=== PATIENT | female | born 1980 | race Caucasian/White ===

== ENCOUNTER 2017-12-09 11:47 | Day surgery (SDC) | payer OTHER, SELFPAY ==
[2017-12-09 12:29] VITALS: BP 161/94; PULSE 93; RESP 16; TEMP 36.6; O2SAT 99; BMI 44.0
[2017-12-09 12:35] LABS: Internal QC Validated? YES +Cl - CLEAR BKGD; Pregnancy, Urine Negative Negative
--- NOTE | 2017-12-09 13:40 | RAD_ITS ---
PROCEDURE: Caudal block. DATE OF EXAMINATION: December 09, 2017. INDICATION: Female, 37 years old. Low back pain. FLUOROSCOPY TIME (if supplied): (0:06) minutes/seconds Intraoperative imaging provided for caudal block. RAD/Fluor Guidance for Spine Inj IMPRESSION: Intraoperative imaging provided for caudal block. Electronically Signed: Emiliano Gonzalez MD at 15:57 EST Tel [phone], Service support ,
[2017-12-09] MEDS: MethylPREDNISolone Acetate 80 MG/ML Vial (13:44)
[2017-12-09] MEDS: Bupivacaine 0.25% 30 ML Vial (13:44)
[2017-12-09 13:53] VITALS: BP 159/96; BP 161/94; PULSE 90; RESP 16; TEMP 36.4; O2SAT 97
[2017-12-09 14:00] VITALS: BP 141/102; BP 161/94; PULSE 88; RESP 16; O2SAT 94
[2017-12-09 14:05] VITALS: BP 145/93; BP 161/94; PULSE 78; RESP 16; O2SAT 97
[2017-12-09 14:10] VITALS: BP 149/92; BP 161/94; PULSE 82; RESP 16; TEMP 37.1; O2SAT 96
--- NOTE | 2017-12-09 14:47 | OP.PCM_ITS ---
Problem List (1) Degeneration of intervertebral disc of lumbosacral region Status: Chronic (2) Disc displacement, lumbar Status: Chronic (3) Radiculopathy of lumbosacral region Status: Chronic Report of Operation Date of Procedure: 12/09/17 Pre-Operative Diagnosis: Lumbosacral radiculopathy, lumbosacral degenerative disc disease, lumbar disc displacement Post-Operative Diagnosis: Lumbosacral radiculopathy, lumbosacral degenerative disc disease, lumbar disc displacement Surgery/Procedure Performed:: Diagnostic/therapeutic caudal epidural steroid injection Description of Surgical Findings:: PROCEDURE: Diagnostic/therapeutic caudal epidural steroid injection PREOPERATIVE DIAGNOSIS: Lumbosacral radiculopathy, lumbosacral degenerative disc disease, lumbar disc displacement POSTOPERATIVE DIAGNOSIS: Lumbosacral radiculopathy, lumbosacral degenerative disc disease, lumbar disc displacement ANESTHESIA: MAC COMPLICATIONS: None BLOOD LOSS: Minimal PROCEDURE IN DETAIL: History and physical today was reviewed. Risks and benefits of the procedure were explained. The patient understood, agreed to our procedure, and informed consent was obtained. IV inserted per routine protocol. The patient was taken to the operating room, placed in a prone position with a pillow positioned underneath the abdomen. Lower back and tailbone area was prepped and draped in a sterile fashion using iodine ?3 under fluoroscopy guidance on the lateral view the caudal space was identified the skin and subcutaneous tissue and size approximately 3 cc of 1% lidocaine using a 25-gauge regular needle under direct visualization with fluoroscopy using a 22-gauge 3-1/2 inch spinal needle the needle was advanced via the skin through the sacral hiatus the peroneal passed through the sacrococcygeal ligament advanced approximately S4 area after negative aspiration for blood or CSF a total of 3 cc of contrast were injected to confirm correct placement of the needle as well as cephalad spread the spread was followed to approximately L5 area after confirmation AP as well as lateral view repeated negative aspiration a total of 15 cc of preservative-free 0.125% Marcaine with 80 mg of Depo-Medrol was injected easily. The needles were then removed intact. The patient experienced no signs or symptoms intrathecal, intravascular injection. The patient experienced no paraesthesia. The procedure was completed without any apparent difficult, any complication. The patient appeared to tolerate well. ASSESSMENT AND PLAN: This is a 37-year-old female with lumbosacral radiculopathy, lumbosacral degenerative disc disease, lumbar disc displacement status post diagnostic/ therapeutic caudal epidural steroid injection. The patient will continue her current medications. The patient will follow in approximately 2 weeks for possible repeat of the procedure if indicated.
[2017-12-09 15:16] VITALS: BP 161/94
== END 2017-12-09 15:17 | disposition home or self-care (01) ==
LOC: SDC 11:47 → ACINP 11:50 → AC 13:11
PROVIDERS: Anesthesiology; Family Provider Family Medicine; PCP Family Medicine; Visit Provider Anesthesiology Pain Medicine
PROC: 3E0S3BZ Introduction of Anesthetic Agent into Epidural Space, Percutaneous Approach (ICD-10-PCS; CPT 62282; principal; 2017-12-09 13:35)
DX: M51.17 Intervertebral disc disorders with radiculopathy, lumbosacral region (principal); M51.16 Intervertebral disc disorders with radiculopathy, lumbar region; M48.07 Spinal stenosis, lumbosacral region; M46.96 Unspecified inflammatory spondylopathy, lumbar region; M79.1 Myalgia; Z79.891 Long term (current) use of opiate analgesic
CPT/HCPCS: 01935; 62323; 64483; 77003; 81025; J7120; J3490

== ENCOUNTER → 2017-12-13 10:22 | Outpatient (CLI) | payer OTHER, SELFPAY ==
[2017-12-09 12:29] VITALS: BMI 44.0
[2017-12-09 14:10] VITALS: BP 149/92
[2017-12-13 10:46] LABS: Absolute Lymphocyte Count 2.81 X10^3/ul (0.83-4.51); Absolute Neutrophil Count 8.1 X10^3/uL (2.0-7.7); Basophil# 0.07 X10^3/uL; Basophil% 0.6 % (0-1); Eosinophils% 1.7 % (0-5); Hematocrit 41.7 % (37-47); Hemoglobin 14.1 g/dl (12.0-15.0); Lymphocyte # 2.81 X10^3/ul (4.0); Lymphocyte % 23.3 % (19-41); Mean Corp Hgb Conc 33.8 g/gl (32-36); Mean Corpuscular Hgb 31.7 pg (27.0-32.0); Mean Corpuscular Volume 93.7 fL (81-99); Mean Platelet Vol. 9.4 fl (6.2-12.0); Monocyte# 0.69 X10^3/uL; Monocyte% 5.7 % (0-10); Neutrophil # 8.07 X10^3/uL (2.7-7.7); Platelet Count 193 K/mm3 (150-450); RBC Distribution Width SD 47.6 fl (35.1-43.9); Red Blood Count 4.45 M/mm3 (4.2-5.4)
[2017-12-13 10:48] LABS: POSITIVE COUNT NO; POSITIVE DIFFERENTIAL NO; POSITIVE MORPHOLOGY NO
[2017-12-13 11:13] LABS: AST(SGOT) 24 U/L (15-37); Alanine Aminotransfer ALT/SGPT 58 U/L (13-56); Albumin, Serum 3.9 g/dL (3.2-5.0); Alkaline Phosphatase 92 U/L (45-117); Anion Gap 10 (5-15); BUN 13 mg/dL (7-18); BUN/Creat Ratio 22.6 RATIO (10-20); Calcium,Total 9.2 mg/dL (8.5-10.1); Chloride 109 mmol/L (98-107); Creatinine, Serum 0.57 mg/dL (0.55-1.02); EST Glomerular Filtration Rate 127 mL/min (>60); Est Glom Filt Rate - Afr Amer 154 mL/min (>60); Globulin 4.1 g/dL (2.2-4.2); Glucose 115 mg/dL (74-106); Sodium Level 141 mmol/L (136-145); Thyroid Stim Hormone (TSH) 3.29 uIU/mL (0.358-3.74)
== END ==
PROVIDERS: Family Provider Family Medicine; PCP Family Medicine; Visit Provider Physician Assistant
DX: R20.0 Anesthesia of skin (principal); R42 Dizziness and giddiness
CPT/HCPCS: 36415; 80053; 84443; 85025

== ENCOUNTER → 2017-12-13 14:12 | Outpatient (CLI) | payer OTHER, SELFPAY ==
[2017-12-09 12:29] VITALS: BMI 44.0
[2017-12-09 14:10] VITALS: BP 149/92
--- NOTE | 2017-12-13 14:16 | CT_ITS ---
STUDY: CT BRAIN WITHOUT CONTRAST REASON FOR EXAM: Female, 37 years old. Left-sided numbness and tingling. The patient is status post recent left-sided nerve block. RADIATION DOSAGE (If Supplied By Facility): CTDIvol = ( 60.81 ) mGy, DLP = ( 1089.89 ) mGycm TECHNIQUE: Transaxial CT imaging of the brain was performed without administration of intravenous contrast material. Individualized dose optimization techniques were used for this CT. COMPARISON: Comparison is made with prior study dated September 23, 2016. FINDINGS: Normal soft tissue structures. Normal calvarium. Normal size ventricles and extra-axial spaces for the patient's age. Normal white matter tracts of the cerebral hemispheres. Normal basal ganglia and thalami. Normal brainstem. Normal cerebellum. There is no intracranial hemorrhage. There are no findings of an acute ischemic infarction. Normal visualized paranasal sinuses. CT/Brain/Head without Contrast IMPRESSION: Normal unenhanced CT scan of the brain. Electronically Signed: Emiliano Gonzlaez MD at 15:07 EST Tel [phone], Service support ,
== END ==
PROVIDERS: Family Provider Family Medicine; PCP Family Medicine; Visit Provider Physician Assistant
DX: R20.2 Paresthesia of skin (principal)
CPT/HCPCS: 70450

== ENCOUNTER 2018-02-03 07:48 | Day surgery (SDC) | payer OTHER, SELFPAY ==
[2018-02-03] VITALS (7 sets, daily range): BP systolic 136–147; BP diastolic 74–86; PULSE 72–78; RESP 16; TEMP 36.1–36.7; O2SAT 97–99; BMI 46.3
[2018-02-03] MEDS: MethylPREDNISolone Acetate 80 MG/ML Vial (09:38)
[2018-02-03] MEDS: Bupivacaine 0.25% 30 ML Vial (09:41)
--- NOTE | 2018-02-03 09:50 | RAD_ITS ---
CLINICAL HISTORY: Female, 37 years old. Lower back pain PROCEDURE: LEFT LUBAR FACET BLOCK LS1 FLUOROSCOPY TIME (if supplied): (0:10) minutes. 4 Images. RADIATION DOSAGE (If Supplied By Facility): CTDIvol = ( ) mGy, DLP = ( ) mGycm TECHNIQUE: LEFT LUBAR FACET BLOCK LS1 RAD/Lumbar Spine 2 or 3 Views IMPRESSION: LEFT LUBAR FACET BLOCK LS1 Electronically Signed: Chelsea Gomez MD at 14:11 EDT Tel , Service support ,
--- NOTE | 2018-02-03 10:59 | OP.PCM_ITS ---
Problem List (1) Lumbosacral spondylosis Status: Chronic (2) Lumbar facet arthropathy Status: Chronic (3) Degeneration of intervertebral disc of lumbosacral region Status: Chronic Report of Operation Date of Procedure: 02/03/18 Pre-Operative Diagnosis: Lumbosacral spondylosis, lumbosacral degenerative disc disease, lumbar facet arthropathy Post-Operative Diagnosis: Lumbosacral spondylosis, lumbosacral degenerative disc disease, lumbar facet arthropathy Surgery/Procedure Performed:: Left-sided lumbar facet steroid injection L3, L4, L5, S1 Description of Surgical Findings:: PROCEDURE: Left-sided lumbar facet steroid injection L3, L4, L5, S1 PREOPERATIVE DIAGNOSIS: Lumbosacral spondylosis, lumbosacral degenerative disc disease, and lumbar facet arthropathy POSTOPERATIVE DIAGNOSIS: Lumbosacral spondylosis, lumbosacral degenerative disc disease, and lumbar facet arthropathy ANESTHESIA: MAC COMPLICATIONS: None BLOOD LOSS: Minimal PROCEDURE IN DETAIL: History and physical today was reviewed. Risks and benefits of the procedure were explained. The patient understood, agreed to our procedure, and informed consent was obtained. IV inserted per routine protocol. The patient was taken to the operating room, placed in a prone position with a pillow positioned underneath the abdomen. The right side of his lower back was prepped and draped in a sterile fashion using iodine x3. Under fluoroscopy guidance, on AP view, L3 through S1 vertebral bodies were visualized. Skin and subcutaneous tissues were anesthetized with approximately 5 mL of 1% lidocaine using a 25-gauge regular needle. Under direct visualization with fluoroscopy at approximately 25-degree angle, starting on the left L3, ending on the left S1, passing through the L4-L5 using a 22-gauge 3 1/2-inch spinal needle, the needle was advanced via the skin. The tip of the needle was maneuvered and directed towards the superior and medial gutter of the transverse process at the vicinity of the medial branch. Once the tip of the needle was in contact with the bone, the needle pulled approximately 2 mm off the bone. After negative aspiration of blood with CSF and confirmation of AP as well as oblique view, a total of 8 mL of preservative-free 0.25% Marcaine with 80 mg of Depo- Medrol was injection in divided doses between those 4 levels. The needles were then removed intact. The patient experienced no signs or symptoms intrathecal, intravascular injection. The patient experienced no paraesthesia. The procedure was completed without any apparent difficult, any complication. The patient appeared to tolerate well. ASSESSMENT AND PLAN: This is a 37-year-old F with lumbosacral spondylosis, lumbosacral degenerative disc disease, and lumbar facet arthropathy, status post left-sided lumbar facet steroid injection L3 through S1. The patient will continue her current medications. The patient will follow in approximately 2 weeks for possible repeat of the procedure if indicated.
== END 2018-02-03 10:41 | disposition home or self-care (01) ==
LOC: SDC 07:49 → AC 07:50
PROVIDERS: Family Provider Family Medicine; PCP Family Medicine; Visit Provider Anesthesiology Pain Medicine
PROC: 3E0T3BZ Introduction of Anesthetic Agent into Peripheral Nerves and Plexi, Percutaneous Approach (ICD-10-PCS; CPT 64484; principal; 2018-02-03 09:45)
DX: M51.36 Other intervertebral disc degeneration, lumbar region (principal); M47.817 Spondylosis without myelopathy or radiculopathy, lumbosacral region; M48.07 Spinal stenosis, lumbosacral region; M51.37 Other intervertebral disc degeneration, lumbosacral region; M54.17 Radiculopathy, lumbosacral region; M46.96 Unspecified inflammatory spondylopathy, lumbar region; F41.9 Anxiety disorder, unspecified; M79.1 Myalgia; Z79.891 Long term (current) use of opiate analgesic
CPT/HCPCS: 64484 ×3; 64483; 72100; J7120

== ENCOUNTER 2018-03-09 10:38 | Emergency (ER) | payer OTHER, SELFPAY ==
[2018-03-09 10:39] VITALS: BMI 47.1
[2018-03-09 10:41] VITALS: BP 198/97; PULSE 78; RESP 15; TEMP 36.6; O2SAT 98
--- NOTE | 2018-03-09 10:43 | EKG12_ITS ---
Test Reason : CP REPEAT Blood Pressure : / mmHG Vent. Rate : 065 BPM Atrial Rate : 065 BPM P-R Int : 136 ms QRS Dur : 084 ms QT Int : 430 ms P-R-T Axes : 011 -03 216 degrees QTc Int : 447 ms Normal sinus rhythm Nonspecific ST and T wave abnormality Abnormal ECG Confirmed by NANCY SHEARER, MOHSEN ([id number]), photo editor GRAZYNA BLOOD ([id number]) on 03/12/2018 1:35:10 PM Referred By: JADE Confirmed By:MOHSEN CRUZ MD
--- NOTE | 2018-03-09 10:47 | RAD_ITS ---
STUDY: X-RAY CHEST REASON FOR EXAM: Female, 37 years old. Chest pain. TECHNIQUE: Single AP portable view of the chest. COMPARISON: None. FINDINGS: Telemetry wires overlie the chest. The lungs are clear and expanded. There is no demonstrated pleural abnormality. Normal size heart. Normal mediastinum and osman. Normal visualized pulmonary arteries. Normal visualized aortic arch and descending thoracic aorta. The thoracic spine is obscured by the mediastinum. There is degenerative osteoarthritis of the bilateral shoulders. There is no demonstrated abnormality of the visualized soft tissue structures of the upper abdomen. RAD/Chest 1 View (Portable) IMPRESSION: No acute cardiopulmonary disease. Electronically Signed: Dre Saldivar DO at 11:07 EDT Tel [phone], Service support ,
--- NOTE | 2018-03-09 10:52 | ED.VISSUMM ---
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 Fact she reports she has no past history of any kind. She has had her cholesterol checked, normal, she does not smoke she does not experience exertional chest pain, she was not exerting herself today and anyway this began having the sharp stabbing pain. She indicates the pain is worse when she turns or bends over, she woke feeling fine came to the hospital with no symptoms, she points to the right parasternal margin as the originating area of her pain has had no trauma to her body, she has no history of DVT or PE Physical Examination: [] Signs are within normal range she is resting comfortably bed her BMI is about 50, she is awake and alert HEENT exam is unremarkable the lungs are clear the heart tones are normal she has some discomfort to the right parasternal region there is no warmth redness or signs of infection or trauma she has full range of motion of upper extremities the abdomen soft there is no rebound guarding or megaly upper lower extremities unremarkable without signs clubbing or edema the back is nontender she has full range of motion of the upper extremities 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 Test Results: [] Emergency Department Course and Treatment: [] EKG shows a sinus rhythm nothing acute screening labs chest x-ray her lab studies are all generally unremarkable see those reports, we discussed inpatient versus outpatient management with her she is feeling somewhat better she then agreed to have a delta troponin done, declined admission, the second troponin was negative EKG showed nothing acute at this time given all the above again she does not wish to be admitted she will be started on Naprosyn she will follow with her family doctors have explained she may require further outpatient management she will pursue that return for change in symptoms Treatment Plan: [] Disposition: [] Home Impression: [] Sharp right-sided chest pain etiology unclear This note was generated with [employer] software. It may contain incorrect words, spelling, and punctuation that were not noted in review of the chart prior to signing ED Disposition - Plan for ED Patient: Chief Complaint: Chest Pain Referrals: Zeferino Leon MD [Primary Care Provider] -
--- NOTE | 2018-03-09 10:55 | ED.DCSUM_ITS ---
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 Fact she reports she has no past history of any kind. She has had her cholesterol checked, normal, she does not smoke she does not experience exertional chest pain, she was not exerting herself today and anyway this began having the sharp stabbing pain. She indicates the pain is worse when she turns or bends over, she woke feeling fine came to the hospital with no symptoms, she points to the right parasternal margin as the originating area of her pain has had no trauma to her body, she has no history of DVT or PE Physical Examination: [] Signs are within normal range she is resting comfortably bed her BMI is about 50, she is awake and alert HEENT exam is unremarkable the lungs are clear the heart tones are normal she has some discomfort to the right parasternal region there is no warmth redness or signs of infection or trauma she has full range of motion of upper extremities the abdomen soft there is no rebound guarding or megaly upper lower extremities unremarkable without signs clubbing or edema the back is nontender she has full range of motion of the upper extremities 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 Test Results: [] Emergency Department Course and Treatment: [] EKG shows a sinus rhythm nothing acute screening labs chest x-ray her lab studies are all generally unremarkable see those reports, we discussed inpatient versus outpatient management with her she is feeling somewhat better she then agreed to have a delta troponin done, declined admission, the second troponin was negative EKG showed nothing acute at this time given all the above again she does not wish to be admitted she will be started on Naprosyn she will follow with her family doctors have explained she may require further outpatient management she will pursue that return for change in symptoms Treatment Plan: [] Disposition: [] Home Impression: [] Sharp right-sided chest pain etiology unclear This note was generated with [employer] software. It may contain incorrect words, spelling, and punctuation that were not noted in review of the chart prior to signing ED Disposition - Plan for ED Patient: Chief Complaint: Chest Pain Referrals: Zeferino Leon MD [Primary Care Provider] -
[2018-03-09 10:57] LABS: Absolute Neutrophil Count 4.4 X10^3/uL (2.0-7.7); Basophil# 0.03 X10^3/uL; Basophil% 0.4 % (0-1); Eosinophil# 0.16 X10^3/uL; Eosinophils% 2.2 % (0-5); Hematocrit 38.9 % (37-47); Hemoglobin 13.1 g/dl (12.0-15.0); Lymphocyte % 31.3 % (19-41); Mean Corp Hgb Conc 33.7 g/gl (32-36); Mean Corpuscular Hgb 31.7 pg (27.0-32.0); Mean Corpuscular Volume 94.2 fL (81-99); Mean Platelet Vol. 9.2 fl (6.2-12.0); Monocyte# 0.37 X10^3/uL; Neutrophil % 59.7 % (47-70); POSITIVE COUNT NO; POSITIVE DIFFERENTIAL NO; POSITIVE MORPHOLOGY NO; Platelet Count 167 K/mm3 (150-450); RBC Distribution Width CV 13.4 % (11.6-14.6); RBC Distribution Width SD 45.9 fl (35.1-43.9); Red Blood Count 4.13 M/mm3 (4.2-5.4); White Blood Count 7.4 K/mm3 (4.4-11.0)
[2018-03-09] MEDS: Aspirin 81 MG TAB.CHEW 324 MG PO (10:57)
[2018-03-09] MEDS: morphine 8 MG/ML Syringe IV (10:57)
[2018-03-09] MEDS: Ondansetron ODT 4 MG Tablet PO (10:58)
[2018-03-09 11:09] LABS: D-Dimer Quantitative (DVT/PE) 0.37 FEU/ug/m (0.27-0.49)
[2018-03-09 11:14] LABS: Anion Gap 9 (5-15); BUN 9 mg/dL (7-18); BUN/Creat Ratio 12.7 RATIO (10-20); Calcium,Total 8.1 mg/dL (8.5-10.1); Chloride 106 mmol/L (98-107); Creatinine, Serum 0.71 mg/dL (0.55-1.02); EST Glomerular Filtration Rate 100 mL/min (>60); Est Glom Filt Rate - Afr Amer 120 mL/min (>60); Estimated Creatinine Clearance 107.55 ml/min; Glucose 210 mg/dL (74-106); Potassium 3.8 mmol/L (3.5-5.1); Sodium Level 140 mmol/L (136-145)
[2018-03-09 12:09] VITALS: BP 177/97; PULSE 78; RESP 16; O2SAT 99
[2018-03-09 13:00] VITALS: BP 173/95; PULSE 64; RESP 21; O2SAT 98
--- NOTE | 2018-03-09 13:47 | EKG12_ITS ---
Test Reason : CP Blood Pressure : / mmHG Vent. Rate : 078 BPM Atrial Rate : 078 BPM P-R Int : 128 ms QRS Dur : 088 ms QT Int : 424 ms P-R-T Axes : 009 007 159 degrees QTc Int : 483 ms Normal sinus rhythm Nonspecific ST and T wave abnormality Prolonged QT Abnormal ECG Confirmed by NANCY SHEARER, MOHSEN ([id number]), business editor GRAZYNA BLOOD ([id number]) on 03/12/2018 1:35:32 PM Referred By: JIMENA/JADE Confirmed By:MOHSEN CRUZ MD
--- NOTE | 2018-03-09 13:47 | ED.DEP ---
ED Disposition - Plan for ED Patient: Chief Complaint: Chest Pain Instructions: ED Chest Pain Atypical Unkn Cause Referrals: Zeferino Leon MD [Primary Care Provider] -
--- NOTE | 2018-03-09 13:48 | ED.DEP ---
ED Disposition - Plan for ED Patient: Chief Complaint: Chest Pain Instructions: ED Chest Pain Atypical Unkn Cause Prescriptions: Naproxen [Naprosyn] 500 mg PO BID PRN #20 tab Referrals: Zeferino Leon MD [Primary Care Provider] -
[2018-03-09 14:00] VITALS: BP 153/76; PULSE 66; RESP 14; O2SAT 97
[2018-03-09 15:01] VITALS: BP 137/85; PULSE 66; RESP 15; O2SAT 96
== END 2018-03-09 15:02 | disposition home or self-care (01) ==
PROVIDERS: Emergency Provider Emergency Medicine; Family Provider Family Medicine; PCP Family Medicine
DX: R07.9 Chest pain, unspecified (principal)
CPT/HCPCS: 71045; 80048; 84484; 85025; 85379; 93005; 96374; 96375; 99284; A4216

== ENCOUNTER → 2018-05-01 13:05 | Outpatient (CLI) | payer OTHER, SELFPAY ==
--- NOTE | 2018-05-01 13:15 | RAD_ITS ---
STUDY: X-RAY - UNILATERAL RIBS ( LEFT ) WITH CHEST REASON FOR EXAM: Female, 37 years old. Pain TECHNIQUE - RIBS: 4 view(s) of the ribs. TECHNIQUE - CHEST: PA COMPARISON: None. FINDINGS - RIBS: Normal visualized ribs without a demonstrated fracture. FINDINGS - CHEST: The lungs are clear and expanded. There is no demonstrated pleural abnormality. Normal size heart. Normal mediastinum and osman. Normal visualized pulmonary arteries. Normal visualized aortic arch and descending thoracic aorta. Normal visualized thoracic spine. Normal visualized ribs, clavicles, and shoulders. There is no demonstrated abnormality of the visualized soft tissue structures of the upper abdomen. RAD/Ribs Uni Min 3V w/PA Chest IMPRESSION: RIBS: Normal x-ray examination of the ribs. CHEST: Normal x-ray examination of the chest. Electronically Signed: Noe Michael MD at 22:44 EDT , Service support ,
== END ==
PROVIDERS: Family Provider Family Medicine; PCP Family Medicine
DX: R07.81 Pleurodynia (principal)
CPT/HCPCS: 71101

== ENCOUNTER → 2018-05-26 19:04 | Outpatient (CLI) | payer OTHER, SELFPAY ==
[2018-05-26 19:07] LABS: Bacteria 0 SEEN /hpf (None Seen); Mucous, Urine 0 SEEN /hpf (<or=2+); White Blood Cells 0 SEEN /hpf (0-5)
[2018-05-26 19:23] LABS: Color, Urine Yellow (Yellow); Glucose, Dipstick Normal (Normal); Ketone-Dipstick 5 mg/dl (Negative); Leukocyte Esterase-Dipstick Negative /ul (Negative); Nitrite-Dipstick Negative (Negative); Occult Blood-Urine 10 /ul (Negative); Protein-Dipstick 30 mg/dl (Negative); Urine Bilirubin Dipstick Negative (Negative); Urine Clarity Clear (Clear); Urine Urobilinogen Normal (Normal); Urine pH 6.5 (5.0 - 8.0)
[2018-05-26 20:13] LABS: Squamous Epithelial Cells - UA 0-5 SEEN /hpf (5-10)
[2018-05-26 20:14] LABS: Calcium Oxalate Crystals Ur RARE /hpf (<or=2+); Red Blood Cells-Urine 0-5 SEEN /hpf (0-5)
== END ==
PROVIDERS: Visit Provider Physician Assistant Surgical
DX: R35.0 Frequency of micturition (principal)
CPT/HCPCS: 81001; 87086; 87088

== ENCOUNTER → 2018-07-15 08:51 | Outpatient (CLI) | payer OTHER, SELFPAY ==
[2018-07-15 09:44] LABS: AST(SGOT) 50 U/L (15-37); Alanine Aminotransfer ALT/SGPT 85 U/L (13-56); Albumin, Serum 3.9 g/dL (3.2-5.0); Alkaline Phosphatase 87 U/L (45-117); Bilirubin, Direct 0.16 mg/dL (0.00-0.30); Globulin 3.9 g/dL (2.2-4.2); Protein, Total 7.8 g/dL (6.4-8.2)
[2018-07-15 09:57] LABS: Hemoglobin A1c 7.2 % (4.2-6.3)
[2018-07-16 20:08] LABS: HCV Quant. RNA PCR HCV Not Detected IU/mL (.); HEPATITIS B SURFACE AG Negative (Negative); Hepatitis A AB, Total Negative (Negative); Hepatitis A IgM Antibody Negative (Negative); Hepatitis B Core AB IgM Negative (Negative); Hepatitis B Core Ab Total Negative (Negative); Hepatitis C Ab <0.1 s/co ratio (0.0-0.9)
[2018-07-17 08:15] LABS: Hep B Surface Antibodies Reactive (.)
== END ==
PROVIDERS: Family Provider Family Medicine; PCP Family Medicine; Visit Provider Family Medicine
DX: E11.9 Type 2 diabetes mellitus without complications (principal); R74.8 Abnormal levels of other serum enzymes
CPT/HCPCS: 36415; 80076; 83036; 86704; 86705; 86706; 86708; 86709; 86803; 87340; 87522

== ENCOUNTER 2018-07-22 13:40 | Observation (INO) | payer OTHER, SELFPAY ==
[2018-07-22] VITALS (9 sets, daily range): BP systolic 143–182; BP diastolic 78–102; PULSE 62–87; RESP 10–19; TEMP 36.7–37.1; O2SAT 95–97; BMI 43.8; BMI 44.1
[2018-07-22 14:01] LABS: Bedside Glucose 98 mg/dL (70-110)
--- NOTE | 2018-07-22 14:04 | EKG12_ITS ---
Test Reason : DIZZINESS Blood Pressure : / mmHG Vent. Rate : 061 BPM Atrial Rate : 061 BPM P-R Int : 142 ms QRS Dur : 092 ms QT Int : 474 ms P-R-T Axes : 003 004 061 degrees QTc Int : 477 ms Normal sinus rhythm Nonspecific ST and T wave abnormality Abnormal ECG Confirmed by ANASTASIYA SHEARER, DALLIN ([id number]), slot editor GRAZYNA BLOOD ([id number]) on 07/24/2018 1:43:29 PM Referred By: Zeferino Leon Confirmed By:DALLIN LANGFORD MD
[2018-07-22] MEDS: 0.9% Normal Saline 1,000 ML 1000 ML IV (14:20)
[2018-07-22 14:29] LABS: Absolute Neutrophil Count 4.7 X10^3/uL (2.0-7.7); Basophil# 0.02 X10^3/uL; Basophil% 0.3 % (0-1); Eosinophil# 0.16 X10^3/uL; Eosinophils% 2.1 % (0-5); Hematocrit 38.3 % (37-47); Lymphocyte % 32.5 % (19-41); Mean Corp Hgb Conc 33.9 g/gl (32-36); Mean Corpuscular Hgb 31.1 pg (27.0-32.0); Mean Corpuscular Volume 91.6 fL (81-99); Mean Platelet Vol. 9.5 fl (6.2-12.0); Monocyte# 0.33 X10^3/uL; Monocyte% 4.3 % (0-10); Neutrophil # 4.65 X10^3/uL (2.7-7.7); Neutrophil % 60.3 % (47-70); POSITIVE COUNT NO; POSITIVE DIFFERENTIAL NO; POSITIVE MORPHOLOGY NO; Platelet Count 158 K/mm3 (150-450); RBC Distribution Width CV 13.1 % (11.6-14.6); RBC Distribution Width SD 43.6 fl (35.1-43.9); Red Blood Count 4.18 M/mm3 (4.2-5.4); White Blood Count 7.7 K/mm3 (4.4-11.0)
[2018-07-22 14:39] LABS: D-Dimer Quantitative (DVT/PE) < 0.27 FEU/ug/m (0.27-0.49)
[2018-07-22 14:40] LABS: ALB/GLOB Ratio 0.9 RATIO (0.9-2.4); AST(SGOT) 37 U/L (15-37); Alanine Aminotransfer ALT/SGPT 67 U/L (13-56); Albumin, Serum 3.6 g/dL (3.2-5.0); Alkaline Phosphatase 82 U/L (45-117); Anion Gap 11 (5-15); BUN 13 mg/dL (7-18); BUN/Creat Ratio 18.7 RATIO (10-20); Calcium,Total 8.6 mg/dL (8.5-10.1); Chloride 105 mmol/L (98-107); Creatinine, Serum 0.69 mg/dL (0.55-1.02); EST Glomerular Filtration Rate 102 mL/min (>60); Est Glom Filt Rate - Afr Amer 123 mL/min (>60); Estimated Creatinine Clearance 109.61 ml/min; Globulin 3.8 g/dL (2.2-4.2); Glucose 99 mg/dL (74-106); Lipase 204 U/L (73-393); Potassium 3.6 mmol/L (3.5-5.1); Protein, Total 7.4 g/dL (6.4-8.2); Sodium Level 139 mmol/L (136-145)
[2018-07-22 14:46] LABS: Pregnancy, Serum, hCG Quali. NEGATIVE Negative (0-9 Nonpreg)
[2018-07-22 15:42] LABS: Bacteria 0 SEEN /hpf (None Seen); Mucous, Urine 0 SEEN /hpf (<or=2+); Red Blood Cells-Urine 0 SEEN /hpf (0-5)
--- NOTE | 2018-07-22 16:01 | CT_ITS ---
STUDY: CT BRAIN WITHOUT CONTRAST REASON FOR EXAM: Female, 38 years old. Dizziness RADIATION DOSAGE (If Supplied By Facility): CTDIvol = ( 60.81 ) mGy, DLP = ( 1044.28 ) mGycm TECHNIQUE: Transaxial CT imaging of the brain was performed without administration of intravenous contrast material. Individualized dose optimization techniques were used for this CT. COMPARISON: 12/13/2017 FINDINGS: There is no acute bleed or infarct. There are normal white matter tracts. The ventricles are normal in configuration. There is no hydrocephalus. The visualized paranasal sinuses are clear. The mastoid air cells are well aerated. There is no skull fracture. CT/Brain/Head without Contrast IMPRESSION: No acute intracranial abnormality. Electronically Signed: Raghav Shea, at 16:55 EDT Tel , Service support ,
[2018-07-22 16:07] LABS: Color, Urine Yellow (Yellow); Glucose, Dipstick Normal (Normal); Ketone-Dipstick 50 mg/dl (Negative); Leukocyte Esterase-Dipstick 25 /ul (Negative); Nitrite-Dipstick Negative (Negative); Occult Blood-Urine 250 /ul (Negative); Protein-Dipstick 30 mg/dl (Negative); Specific Gravity, Urine 1.015 (1.002-1.030); Urine Bilirubin Dipstick Negative (Negative); Urine Clarity Clear (Clear); Urine Urobilinogen Normal (Normal)
[2018-07-22 16:33] LABS: Squamous Epithelial Cells - UA 0-5 SEEN /hpf (5-10); White Blood Cells 0-5 SEEN /hpf (0-5)
--- NOTE | 2018-07-22 16:35 | ED.VISSUMM ---
- ER Visit Summary Date of Service: 07/22/18 Chief Complaint: [Dizziness] History of Present Illness: The patient is a 38 F [presents the emergency department complaint of dizziness that started an hour ago. 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 Patient states that she feels like she is in a haze. Patient also felt like she might pass out. She denied any tachycardia or chest pain. Patient did have a sharp pain earlier in the day in the left side of her chest. Patient also thought it was just maybe her breast soreness being that she is on her period. Patient has had some mild nausea. Patient complains of some urinary frequency. Patient recently diagnosed with diabetes mellitus and is on oral medications. Physical Examination: [HEENT-PERRLA, EOMI. Cranial nerves II through XII grossly intact. TMs clear. Mucous membranes moist. No adenopathy. Cardiovascular-regular rate and rhythm without murmur or ectopy Lungs-clear to auscultation, chest wall stable without crepitus or subcu emphysema Abdomen-normoactive bowel sounds, soft, nontender, no rebound or rigidity, no peritoneal signs. Neuro vwku-[id number]-qxrn and heel stokes testing within normal limits, negative Romberg, negative pronator, fundi benign. Negative Hallpike maneuver. Extremities-intact ?4, normal range of motion, normal pulses, atraumatic] Test Results: [EKG obtained arrival shows sinus rhythm with a ventricular rate 61 bpm. CBC with differential is normal. Chemistries were normal. LFTs were unremarkable. Urinalysis was normal. HCG was negative. D-dimer was less than 0.27. CT scan of the brain without contrast peers normal on my interpretation but awaiting CT results from radiology.] Orthostatic vital signs were negative. Emergency Department Course and Treatment: [And received a liter normal same fluid bolus. Upon standing patient continues to complain of feeling off balance and feeling like she might fall.] Treatment Plan: [Admit for further workup and evaluation] Disposition: [Admit] Impression: [Dizziness-etiology uncertain] This note was generated with [employer] dictation software. It may contain incorrect words, spelling, and punctuation that were not noted in review of the chart prior to signing ED Disposition - Plan for ED Patient: Chief Complaint: Dizziness Referrals: Zeferino Leon MD [Primary Care Provider] -
--- NOTE | 2018-07-22 16:41 | ED.DCSUM_ITS ---
- ER Visit Summary Date of Service: 07/22/18 Chief Complaint: [Dizziness] History of Present Illness: The patient is a 38 F [presents the emergency department complaint of dizziness that started an hour ago. 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 Patient states that she feels like she is in a haze. Patient also felt like she might pass out. She denied any tachycardia or chest pain. Patient did have a sharp pain earlier in the day in the left side of her chest. Patient also thought it was just maybe her breast soreness being that she is on her period. Patient has had some mild nausea. Patient complains of some urinary frequency. Patient recently diagnosed with diabetes mellitus and is on oral medications. Physical Examination: [HEENT-PERRLA, EOMI. Cranial nerves II through XII grossly intact. TMs clear. Mucous membranes moist. No adenopathy. Cardiovascular-regular rate and rhythm without murmur or ectopy Lungs-clear to auscultation, chest wall stable without crepitus or subcu emphysema Abdomen-normoactive bowel sounds, soft, nontender, no rebound or rigidity, no peritoneal signs. Neuro pjaa-menltb-yffv and heel stokes testing within normal limits, negative Romberg, negative pronator, fundi benign. Negative Hallpike maneuver. Extremities-intact ?4, normal range of motion, normal pulses, atraumatic] Test Results: [EKG obtained arrival shows sinus rhythm with a ventricular rate 61 bpm. CBC with differential is normal. Chemistries were normal. LFTs were unremarkable. Urinalysis was normal. HCG was negative. D-dimer was less than 0.27. CT scan of the brain without contrast peers normal on my interpretation but awaiting CT results from radiology.] Orthostatic vital signs were negative. Emergency Department Course and Treatment: [And received a liter normal same fluid bolus. Upon standing patient continues to complain of feeling off balance and feeling like she might fall.] Treatment Plan: [Admit for further workup and evaluation] Disposition: [Admit] Impression: [Dizziness-etiology uncertain] This note was generated with [employer] dictation software. It may contain incorrect words, spelling, and punctuation that were not noted in review of the chart prior to signing ED Disposition - Plan for ED Patient: Chief Complaint: Dizziness Referrals: Zeferino Leon MD [Primary Care Provider] -
--- NOTE | 2018-07-22 16:43 | NURSING ---
DR TERE CARR
--- NOTE | 2018-07-22 16:44 | NURSING ---
PCU NEAR SYNCOPE, HTN TERE
--- NOTE | 2018-07-22 17:16 | PCM.HP.STD ---
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 She denies vertigo but felt like she might pass out. Patient also feeling off balance and says she might fall. In ED, she had negative orthostatics sign a negative Hallpike maneuver. She has diabetes mellitus and blood sugar is 99 on BMP. She is having menstrual periods but denies UTI symptoms. Today also she felt sharp left upper quadrant abdominal pain not at the time of feeling dizziness. She gets intermittently but denies any history of kidney stone. She denies any prior history of abdominal pain. Complaint of left-sided pressure but feels like breast soreness as she is in menstrual period. Her father had early ND and he of coronary artery disease [] Past Medical History Past Medical History (Chronic Problems): Chronic Problems (Last Reviewed 05/26/18 @ 16:28 by Samaria Ren) Lumbosacral spondylosis (Chronic) Lumbar facet arthropathy (Chronic) Segmental and somatic dysfunction of pelvic region (Chronic) Radiculopathy of lumbosacral region (Chronic) Disc displacement, lumbar (Chronic) Degeneration of intervertebral disc of lumbosacral region (Chronic) Medical History: Medical History (Last Reviewed 05/26/18 @ 16:28 by Samaria Ren) gall bladder removal Allergies No Known Allergies Allergy (Verified 05/26/18 16:28) Home Medications: Ambulatory Orders Medication Instructions Recorded Lorazepam [Ativan] 0.5 mg PO PRN PRN 10/27/13 Albuterol Inhaler [Ventolin Hfa 1 - 2 puff INHALATION Q6H PRN PRN 10/27/15 (SP)] Tizanidine HCl [Zanaflex] 4 mg PO PRN PRN 04/29/17 Erenumab-Aooe [Aimovig 140 mg IM QMONTH 07/22/18 Autoinjector (2 Pack)] Ibuprofen 400 mg PO PRN PRN 07/22/18 Metformin HCl [Metformin HCl ER] 500 mg PO DAILY 07/22/18 Paroxetine [Paxil] 10 mg PO DAILY 07/22/18 Surgical History: Surgical History (Last Reviewed 05/26/18 @ 16:28 by Samaria Ren) H/O: Z98.891 Smoking Status: Never smoker - *Family History Paternal Family History: Family History (Last Reviewed 05/26/18 @ 16:28 by Samaria Ren) Father Diabetes History Items: Heart Disease Review of Systems Constitutional: Reports: Malaise, Weakness, Fatigue. Denies: Chills, Fever, Weight Change HEENT: Denies: Head Aches, Sinus Congestion, Sinus Drainage Cardiovascular: Reports: Chest Pressure, Light Headedness. Denies: Chest Pain, Palpitations Respiratory: Denies: Cough, Shortness of breath at rest, Sputum production Gastrointestinal: Denies: Abdominal Pain, Nausea, Vomiting Genitourinary: Denies: Dysuria Musculoskeletal: Denies: Joint Pain, Joint Tenderness Skin: Denies: Rash, Wounds Neurological: Reports: Incoordination. Denies: Focal weakness, Numbness, Tingling Psychiatric: Reports: Anxiety, Depression. Denies: Homicidal Ideations, Suicidal Ideations Hematologic/ Lymphatic: Denies: Easy Bruising, Easy Bleeding VTE Information - Inpt Only VTE Present on Admission: No VTE Mechan Device Prophylaxis: SCD's, None VTE Pharm Prophylaxis ordered?: Yes - Physical Exam General: Alert, Oriented x3, Cooperative HEENT: Atraumatic, PERRLA, EOMI, Normocephalic Neck: Supple, No JVD, Negative Carotid Bruits Lungs: Clear to auscultation, Normal air movement Cardiovascular: Regular rate, Normal S1, Normal S2, No murmurs Abdomen: Bowel Sounds Present, Soft, Non-Distended, Tender - Mild deep tenderness over left upper quadrant Extremities: Capillary Refill Less than 3 Seconds, Edema Skin: No rashes, No breakdown Musculoskeletal: No Tenderness to Palpation of Joints or Extremities, Arthritic Changes Neurological: Cranial nerves II-XII grossly intact Psych/Mental Status: Normal Affect, Appropriate Vital Signs Temp Pulse Resp BP Pulse Ox 98.1 F 62 18 148/81 H 97 07/22/18 13:41 07/22/18 15:53 07/22/18 13:41 07/22/18 15:53 07/22/18 13:41 Oxygen Delivery Method Room Air Weight: 280 lb Body Mass Index (BMI) 43.8 Finger Stick Blood Glucose 98 Laboratory Tests Past 24 Hrs 07/22/18 07/22/18 07/22/18 14:15 14:15 14:15 WBC 7.7 RBC 4.18 L Hgb 13.0 Hct 38.3 MCV 91.6 MCH 31.1 MCHC 33.9 RDW 13.1 RDW Differential 43.6 Plt Count 158 MPV 9.5 Immature Gran % (Auto) 0.500 Neut % (Auto) 60.3 Lymph % (Auto) 32.5 [place] % (Auto) 4.3 Eos % (Auto) 2.1 Baso % (Auto) 0.3 Absolute Neuts (auto) 4.7 Absolute Lymphs (auto) 2.50 Total Counted Not Reportable D-Dimer Quant (PE/DVT) < 0.27 L Sodium 139 Potassium 3.6 Chloride 105 Carbon Dioxide 23.0 Anion Gap 11 BUN 13 Creatinine 0.69 Estim Creat Clear Calc 109.61 Est GFR (MDRD) Af Amer 123 Est GFR (MDRD) Non-Af 102 BUN/Creatinine Ratio 18.7 Glucose 99 Calcium 8.6 Total Bilirubin 0.50 AST 37 ALT 67 H Alkaline Phosphatase 82 Total Protein 7.4 Albumin 3.6 Globulin 3.8 Albumin/Globulin Ratio 0.9 Lipase 204 Serum , Qual Urine Color Urine Clarity Urine pH Ur Specific [place] Urine Protein Urine Glucose (UA) Urine Ketones Urine Occult Blood Urine Nitrite Urine Bilirubin Urine Urobilinogen Ur Leukocyte Esterase Urine RBC Urine WBC Ur Squamous Epith Cells Urine Bacteria Urine Mucus 07/22/18 07/22/18 14:15 15:30 WBC RBC Hgb Hct MCV MCH MCHC RDW RDW Differential Plt Count MPV Immature Gran % (Auto) Neut % (Auto) Lymph % (Auto) [place] % (Auto) Eos % (Auto) Baso % (Auto) Absolute Neuts (auto) Absolute Lymphs (auto) Total Counted D-Dimer Quant (PE/DVT) Sodium Potassium Chloride Carbon Dioxide Anion Gap BUN Creatinine Estim Creat Clear Calc Est GFR (MDRD) Af Amer Est GFR (MDRD) Non-Af BUN/Creatinine Ratio Glucose Calcium Total Bilirubin AST ALT Alkaline Phosphatase Total Protein Albumin Globulin Albumin/Globulin Ratio Lipase Serum , Qual NEGATIVE Urine Color Yellow Urine Clarity Clear Urine pH 6.0 Ur Specific [place] 1.015 Urine Protein 30 H Urine Glucose (UA) Normal Urine Ketones 50 H Urine Occult Blood 250 H Urine Nitrite Negative Urine Bilirubin Negative Urine Urobilinogen Normal Ur Leukocyte Esterase 25 H Urine RBC 0 SEEN Urine WBC 0-5 SEEN Ur Squamous Epith Cells 0-5 SEEN Urine Bacteria 0 SEEN Urine Mucus 0 SEEN POC Glucose 07/22/18 13:51 POC Glucose 98 Assessment/Plan All Active Problems (Last Reviewed 05/26/18 @ 16:28 by Samaria Ren) Near syncope (Acute) Left upper quadrant abdominal pain (Acute) Dysuria (Resolved) Urinary tract infection (Resolved) Segmental and somatic dysfunction of thoracic region (Acute) The patient is a 38 year old F with history of diabetes mellitus type 2 and migraine headache got dizzy, lightheaded that is started about an hour ago prior to coming to ER 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 She denies vertigo but felt like she might pass out. Patient also feeling off balance and says she might fall. In ED, she had negative orthostatics sign a negative Hallpike maneuver. She has diabetes mellitus and blood sugar is 99 on BMP. She is having menstrual periods but denies UTI symptoms. Today also she felt sharp left upper quadrant abdominal pain not at the time of feeling dizziness. She gets intermittently but denies any history of kidney stone. She denies any prior history of abdominal pain. Complaint of left-sided pressure but feels like breast soreness as she is in menstrual period. Her father had early ND and he of coronary artery disease 1. Dizziness and lightheadedness, off balance suggestive of near syncope, exact etiology unclear: She denies URI symptoms. She is being admitted to PCU for further workup. Cycle cardiac enzymes. MRI brain ordered to rule out posterior secretion CVA. 2D echo ordered. IV fluid normal saline at 100 mL/h. D-dimer is negative 2. Sharp left upper quadrant abdominal pain rule out nephrolithiasis/urinary tract stone: KUB x-ray ordered. Patient is pain-free now. UA is negative. RBC 0. 3. Diabetes mellitus type 2: Accu-Chek before meals and at bedtime daily on NovoLog sliding scale. At home she is on metformin and will hold. 4. Other comorbidities include migraine headache, lumbosacral arthritis with radiculopathy, lumbar disc displacement degeneration arthritis, obstructive sleep apnea and morbid obesity: Patient is CPAP at night and will continue it. All medication reconciliation done. Currently she denies headache. DVT prophylaxis: Moderate risk, on Lovenox 40 milligrams daily. This note was generated with [employer] dictation software. Every effort was made to ensure accuracy, however computerized director credit risk mistakes may persist. Code Visit OBSV E&M: 86496 Initial observation care L3
--- NOTE | 2018-07-22 17:22 | MRI_ITS ---
STUDY: MRI BRAIN WITHOUT CONTRAST REASON FOR EXAM: Female, 38 years old. Dizziness TECHNIQUE: Standardized multiplanar fat and water weighted pulse sequences were obtained. COMPARISON: CT of the brain on July 22, 2018 FINDINGS: Normal size of the ventricles and extra-axial spaces for the patient's age. Normal white matter tracts of the supratentorial brain. Normal bilateral basal ganglia. Normal thalami. There is no extra-axial fluid accumulation. Normal flow voids within the major intracranial circulation suggesting patency by spin echo criteria. Normal sella turcica, pituitary gland, infundibular stalk, optic chiasm and hypothalamus. Normal tectal plate and pineal gland. Normal midbrain, javid and medulla. Normal cerebellum. Normal basal cisterns. Normal bilateral temporal bones. Normal bilateral internal auditory canals. No demonstrated orbital abnormality, within the constraints of a routine brain study. Normal visualized paranasal sinuses. Normal calvarium and skull base. Normal visualized soft tissue structures. Normal visualized upper cervical spine. MRI/Brain without Contrast IMPRESSION: Normal unenhanced MRI of the brain. Electronically Signed: Noe Michael MD at 21:44 EDT , Service support ,
--- NOTE | 2018-07-22 17:30 | ECHOCS_ITS ---
Reason For Study: Near syncope Procedure This was a 2D Doppler, Color Flow transthoracic echocardiogram. Exam performed portable in patient room. Left Ventricle Normal size and thickness. The estimated ejection fraction is 65 %. Normal diastology for age. No regional wall motion abnormalities noted. Right Ventricle Normal size and thickness. Normal systolic function. Atria Normal left atrium. Normal right atrium. Normal atrial septum. Mitral Valve The mitral valve is structurally normal. No prolapse or stenosis seen. Trivial mitral valve insufficiency. Tricuspid Valve Normal tricuspid valve. Unable to estimate RV systolic pressure due to inadequate jet, pulmonary artery pressure probably normal. Aortic Valve Normal aortic valve. Trisinus/trileaflet aortic valve. Pulmonic Valve Normal pulmonic valve. Great Vessels Normal aortic root. Normal arch. Normal inferior vena cava. Inferior vena cava collapse with sniff. Pericardium/Pleural No pericardial effusion. MMode/2D Measurements & Calculations LVIDd: 5.4 cm IVSd: 1.1 cm Ao root diam: 3.2 cm LVIDs: 3.6 cm LVPWd: 1.1 cm LA dimension: 4.7 cm RVDd: 3.7 cm FS: 34.5 % LAV(MOD-bp): 94.9 ml EDV(MOD-sp4): 123.5 ml SV(MOD-sp4): 76.4 ml LAV(MOD-bp) Indexed: 40.6 ml/m2 ESV(MOD-sp4): 47.0 ml LAV(MOD-sp2): 81.5 ml EF(MOD-sp4): 61.9 % LAV(MOD-sp4): 92.3 ml LA A4 area: 25.9 cm2 RA A4 area: 13.0 cm2 Doppler Measurements & Calculations MV E max roberto: 89.9 cm/sec Lat Peak E' Roberto: 9.6 cm/sec Med Peak E' Roberto: 8.0 cm/sec MV A max roberto: 52.2 cm/sec E/E' lat: 9.4 E/E' med: 11.3 MV E/A: 1.7 Ao V2 max: 137.3 cm/sec LV V1 max: 106.0 cm/sec PA V2 max: 102.9 cm/sec Ao max P.5 mmHg LV V1 max P.5 mmHg Interpretation Summary The estimated ejection fraction is 65 %. Normal diastology for age. Unable to estimate RV systolic pressure due to inadequate jet, pulmonary artery pressure probably normal. There is no comparison study available. Ordering Physician: Yayo Mohamud Referring Physician: Zeferino Leon Performed By: Ashley Craft RDCS
--- NOTE | 2018-07-22 18:00 | RAD_ITS ---
STUDY: X-RAY - ABDOMEN/PELVIS REASON FOR EXAM: Female, 38 years old. Left upper quadrant pain. TECHNIQUE: 3 frontal views of the abdomen. COMPARISON: None. FINDINGS: There is no bowel obstruction. There is air and stool to the level of the rectum. The patient is status post cholecystectomy. There is intrauterine device noted. The visualized osseous structures are within normal limits. RAD/Abdomen Single View IMPRESSION: No bowel obstruction. Electronically Signed: Raghav Shea, at 22:08 EDT Tel , Service support ,
[2018-07-22 18:25] LABS: Magnesium 1.5 mg/dL (1.6-2.6)
[2018-07-22] MEDS: 0.9% Normal Saline 1,000 ML 100 ML IV (18:41)
[2018-07-22 19:10] LABS: Bedside Glucose 106 mg/dL (70-110)
[2018-07-22 23:01] LABS: Bedside Glucose 157 mg/dL (70-110)
[2018-07-22] MEDS: Insulin Lispro 100 UNIT/ML INSULN.PEN SQ (23:05)
[2018-07-22] MEDS: Morphine 2 MG/ML Syringe 1 MG IV (23:24)
[2018-07-23] VITALS (9 sets, daily range): BP systolic 121–135; BP diastolic 68–89; PULSE 54–75; RESP 10–19; TEMP 36.6–36.7; O2SAT 95–99
[2018-07-23] MEDS: 0.9% Normal Saline 1,000 ML 100 ML IV ×2 (06:17→15:01)
[2018-07-23 07:06] LABS: Bedside Glucose 127 mg/dL (70-110)
[2018-07-23 07:42] LABS: Anion Gap 10 (5-15); BUN 9 mg/dL (7-18); BUN/Creat Ratio 18.1 RATIO (10-20); Calcium,Total 7.9 mg/dL (8.5-10.1); Chloride 109 mmol/L (98-107); EST Glomerular Filtration Rate 149 mL/min (>60); Est Glom Filt Rate - Afr Amer 181 mL/min (>60); Estimated Creatinine Clearance 151.26 ml/min; Glucose 118 mg/dL (74-106); Sodium Level 141 mmol/L (136-145)
[2018-07-23 07:50] LABS: Hemoglobin A1c 7.1 % (4.2-6.3)
[2018-07-23] MEDS: Enoxaparin 40 MG/0.4 ML Syringe SC (08:24)
[2018-07-23] MEDS: PARoxetine 10 MG Tablet PO (08:24)
[2018-07-23] MEDS: Insulin Lispro 100 UNIT/ML INSULN.PEN SQ (10:57)
[2018-07-23 11:20] LABS: Bedside Glucose 152 mg/dL (70-110)
[2018-07-23] MEDS: Acetaminophen 325 MG Tablet 650 MG PO (12:19)
--- NOTE | 2018-07-23 15:40 | PCM.WORK.EX ---
Work/School Excuse Work/School Excuse for:: Patient Please excuse this person from:: Work From: 07/22/18 through: 07/24/18
--- NOTE | 2018-07-23 15:45 | DCINST_ITS ---
You will use the following diet at home:: Calorie/Carbohydrate Controlled ( specify 1200, 1400, etc) - 1800 Your food should be the consistency of: Regular Your liquids should be the consistency of: Regular/Thin Discharge Activity: Return to Normal Activity Return to work on:: 07/25/18 Allergies/Adverse Reactions: Allergies No Known Allergies Allergy (Verified 05/26/18 16:28) Medications to take at Discharge Lorazepam [Ativan] 0.5 mg PO PRN PRN 10/27/13 Albuterol Inhaler [Ventolin Hfa] 1 - 2 puff INHALATION Q6H PRN PRN 10/27/15 Tizanidine HCl [Zanaflex] 4 mg PO PRN PRN 04/29/17 Erenumab-Aooe [Aimovig Autoinjector (2 Pack)] 140 mg IM QMONTH 07/22/18 Ibuprofen 400 mg PO PRN PRN 07/22/18 Metformin HCl [Metformin HCl ER] 500 mg PO DAILY 07/22/18 Paroxetine [Paxil] 10 mg PO DAILY 07/22/18 Meclizine HCl 25 mg PO TID PRN #20 tab 07/23/18 The following prescriptions were given: Meclizine HCl 25 mg PO TID PRN #20 tab PRN Reason: Dizziness Orders to be completed after discharge: Physical Therapy Evaluation Location: None Selected Primary Care Physician: Zeferino Leon MD [Primary Care Provider] - Within 2 Weeks Test Results: Test results from this visit will be discussed in further detail at your follow- up appointment, if applicable. Proposed Discharge Date: 07/23/18
--- NOTE | 2018-07-23 15:45 | PCM.DC.SUM ---
Discharge Date and Diagnosis - Problem List Patient Problems: Active and Suspected Problems (Last Reviewed 05/26/18 @ 16:28 by Samaria Ren) Vertigo (Acute) Date of Admission: 07/22/18 Date of Discharge: 07/23/18 - Primary Discharge Diagnosis Active and Suspected Problems (Last Reviewed 05/26/18 @ 16:28 by Samaria Ren) Vertigo (Acute) - Secondary Discharge Diagnosis Chronic Problems (Last Reviewed 05/26/18 @ 16:28 by Samaria Ren) Lumbosacral spondylosis (Chronic) Lumbar facet arthropathy (Chronic) Left upper quadrant abdominal pain (Chronic) Segmental and somatic dysfunction of pelvic region (Chronic) Segmental and somatic dysfunction of thoracic region (Chronic) Radiculopathy of lumbosacral region (Chronic) Disc displacement, lumbar (Chronic) 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 Electronically Signed: Raghav Shea, at 16:55 EDT Tel , Service support , Brain MRI 07/22/18 17:22 IMPRESSION: Normal unenhanced MRI of the brain. Electronically Signed: Noe Michael MD at 21:44 EDT , Service support , KUB X-Ray 07/22/18 18:00 IMPRESSION: No bowel obstruction. Electronically Signed: Raghav Shea, at 22:08 EDT Tel , Service support , Operations: None Procedures: 2-D Echocardiogram Summary of Care Provided: The patient is a 38 year old F presents with a near syncopal episode at work. Patient had an excellent workup, including an MRI of the brain, CT of the head, 2D echocardiogram and orthostatic vital signs which were all unremarkable. My feeling the patient has benign paroxysmal positional vertigo and I have recommended meclizine plus physical therapy for vestibular rehab. Patient does have vertical nystagmus particularly on the right that does have reproducible dizziness with lateral gaze. There is no posterior circulation stroke that is causing her symptoms. Physical exam: Patient is no acute distress and afebrile. HEENT head is atraumatic and normocephalic. No scleral icterus. Does have bilateral lateral nystagmus more prominent on the right with reproducible dizziness. [] Discharge Diet: 1800 Calorie Control Diet Discharge Activity: Return to Normal Activity Return to work on:: 07/25/18 Call your doctor if you observe: - - worsening dizziness. Home Medications: Medications to take at Discharge Lorazepam [Ativan] 0.5 mg PO PRN PRN 10/27/13 Albuterol Inhaler [Ventolin Hfa] 1 - 2 puff INHALATION Q6H PRN PRN 10/27/15 Tizanidine HCl [Zanaflex] 4 mg PO PRN PRN 04/29/17 Erenumab-Aooe [Aimovig Autoinjector (2 Pack)] 140 mg IM QMONTH 07/22/18 Ibuprofen 400 mg PO PRN PRN 07/22/18 Metformin HCl [Metformin HCl ER] 500 mg PO DAILY 07/22/18 Paroxetine [Paxil] 10 mg PO DAILY 07/22/18 Meclizine HCl 25 mg PO TID PRN #20 tab 07/23/18 Following Prescrptions Were Given to Patient: Meclizine HCl 25 mg PO TID PRN #20 tab PRN Reason: Dizziness Other Amb Orders: Physical Therapy Evaluation Location: None Selected Primary Care Physician: Zeferino Leon MD [Primary Care Provider] - Within 2 Weeks Disposition: Home Minutes spent on discharge:: 32 Patient Condition:: Good Medical Necessity - Tobacco Use Smoking Status: Never smoker Meaningful Use Info Meaningful Use Diagnoses (Choose all that apply): None applicable Code Visit OBSV E&M: 86073 Observation care discharge
[2018-07-23 16:40] LABS: Bedside Glucose 106 mg/dL (70-110)
== END 2018-07-23 15:44 | disposition home or self-care (01) ==
LOC: ED 14:27 → PCU 17:21
PROVIDERS: Admitting Provider Internal Medicine; Emergency Provider Emergency Medicine; Family Provider Family Medicine; PCP Family Medicine
DX: R42 Dizziness and giddiness (principal); M99.05 Segmental and somatic dysfunction of pelvic region; M99.02 Segmental and somatic dysfunction of thoracic region; M51.17 Intervertebral disc disorders with radiculopathy, lumbosacral region; E11.9 Type 2 diabetes mellitus without complications; Z79.84 Long term (current) use of oral hypoglycemic drugs; Z79.899 Other long term (current) drug therapy; Z82.49 Family history of ischemic heart disease and other diseases of the circulatory system; G47.33 Obstructive sleep apnea (adult) (pediatric); E66.01 Morbid (severe) obesity due to excess calories; Z68.41 Body mass index [BMI] 40.0-44.9, adult; Z71.3 Dietary counseling and surveillance
CPT/HCPCS: 36415; 70450; 70551; 74018; 80048; 80053; 81001; 82962; 83036; 83690; 83735; 84484; 84703; 85025; 85379; 93005; 93306; 94002; 94003; 96361; 96372; 96374; 97161; 99218; 99285; J7030; A4216; C8929; G0378

== ENCOUNTER → 2018-07-24 12:06 | Outpatient (CLI) | payer OTHER, SELFPAY ==
[2018-07-24 13:41] LABS: Hemoglobin A1c 7.2 % (4.2-6.3)
[2018-07-24 13:42] LABS: AST(SGOT) 31 U/L (15-37); Alanine Aminotransfer ALT/SGPT 67 U/L (13-56); Albumin, Serum 3.7 g/dL (3.2-5.0); Alkaline Phosphatase 85 U/L (45-117); Bilirubin, Direct 0.13 mg/dL (0.00-0.30); Globulin 3.6 g/dL (2.2-4.2); Protein, Total 7.3 g/dL (6.4-8.2)
[2018-07-25 03:07] LABS: HEPATITIS B SURFACE AG Negative (Negative); Hepatitis A IgM Antibody Negative (Negative); Hepatitis B Core AB IgM Negative (Negative)
[2018-07-25 06:36] LABS: Thyroid Stim Hormone (TSH) 1.82 uIU/mL (0.358-3.74)
[2018-07-25 07:39] LABS: Absolute Lymphocyte Count 2.27 X10^3/ul (0.83-4.51); Basophil# 0.04 X10^3/uL; Basophil% 0.4 % (0-1); Eosinophil# 0.13 X10^3/uL; Eosinophils% 1.5 % (0-5); Hematocrit 40.5 % (37-47); Hemoglobin 13.7 g/dl (12.0-15.0); Lymphocyte # 2.27 X10^3/ul (4.0); Lymphocyte % 25.5 % (19-41); Mean Corp Hgb Conc 33.8 g/gl (32-36); Mean Corpuscular Hgb 31.4 pg (27.0-32.0); Mean Corpuscular Volume 92.9 fL (81-99); Mean Platelet Vol. 12.4 fl (6.2-12.0); Monocyte# 0.38 X10^3/uL; Monocyte% 4.3 % (0-10); Neutrophil # 6.02 X10^3/uL (2.7-7.7); Neutrophil % 67.7 % (47-70); Platelet Count 207 K/mm3 (150-450); RBC Distribution Width SD 44.2 fl (35.1-43.9); Red Blood Count 4.36 M/mm3 (4.2-5.4); White Blood Count 8.9 K/mm3 (4.4-11.0)
[2018-07-25 07:41] LABS: Differential Indicated SCAN CRITERIA MET; POSITIVE COUNT NO; POSITIVE DIFFERENTIAL NO; POSITIVE MORPHOLOGY YES
[2018-07-25 10:54] LABS: Hep C Antibodies <0.1 s/co ratio (0.0-0.9)
== END ==
PROVIDERS: Family Provider Family Medicine; PCP Family Medicine; Visit Provider Family Medicine
DX: E11.9 Type 2 diabetes mellitus without complications (principal); Z79.4 Long term (current) use of insulin; R74.8 Abnormal levels of other serum enzymes
CPT/HCPCS: 36415; 80074; 80076; 82043; 82570; 83036; 84443; 85025

== ENCOUNTER 2018-08-28 15:45 | Outpatient (RCR) | payer OTHER, SELFPAY | END 2018-08-28 23:59 | LOC: DC 15:45 | PROVIDERS: Family Provider Family Medicine; PCP Family Medicine; Visit Provider Family Medicine | DX: E11.9 Type 2 diabetes mellitus without complications (principal); Z71.3 Dietary counseling and surveillance | CPT/HCPCS: 97802; G0108 ==

== ENCOUNTER → 2018-09-30 08:58 | Outpatient (CLI) | payer OTHER, SELFPAY ==
[2018-07-22 17:27] VITALS: BMI 44.1
[2018-09-30 11:31] LABS: Microalbumin:Creatinine Ratio 593.5 mg/g CRE (<30 mg/g CRE)
[2018-09-30 11:34] LABS: Hemoglobin A1c 6.2 % (4.2-6.3)
--- OUTSIDE RECORDS SUMMARY | 2018-11-11 22:00 | XMS RPT_ITS ---
:1980 Author Organization OHIP Support Name Relationship Address Phone CORDELIA NYE Unavailable VANESSA REAR + [place] [address] [facility] Unavailable [address] + [place] [address] PARRIS CORDELIA Unavailable VANESSA REAR + [place] [address] [facility] Unavailable [address] + [place] [address] PARRIS CORDELIA Unavailable VANESSA REAR + [place] [address] [facility] Unavailable [address] + [place] [address] PARRIS CORDELIA Unavailable VANESSA REAR + [place] [address] [facility] Unavailable [address] + [place] [address] PARRIS CORDELIA Unavailable VANESSA REAR + [place] [address] [facility] Unavailable [address] + [place] [address] NYE, CORDELIA Unavailable VANESSA REAR + [place] [address] [facility] Unavailable [address] + [place] [address] PARRIS CORDELIA Unavailable VANESSA REAR + [place] [address] [facility] Unavailable [address] + [place] [address] NYE, CORDELIA Unavailable VANESSA REAR + [place] [address] [facility] Unavailable [address] + [place] [address] NYE, CORDELIA Unavailable VANESSA REAR + [place] [address] [facility] Unavailable [address] + [place] [address] NYE, CORDELIA Unavailable VANESSA REAR + [place] [address] [facility] Unavailable [address] + [place] [address] NYE, CORDELIA Unavailable VANESSA REAR + [place] [address] [facility] Unavailable [address] + [place] [address] NYE, CORDELIA Unavailable VANESSA REAR + [place] [address] [facility] Unavailable [address] + [place] [address] NYE, CORDELIA Unavailable VANESSA REAR + [place] [address] [facility] Unavailable [address] + [place] [address] NYE, CORDELIA Unavailable VANESSA REAR + [place] [address] [facility] Unavailable [address] + [place] [address] NYE, OCRDELIA Unavailable VANESSA REAR + [place] [address] [facility] Unavailable [address] + [place] [address] NYE, CORDELIA Unavailable VANESSA REAR + [place] [address] [facility] Unavailable [address] + [place] [address] NYE, CORDELIA Unavailable VANESSA REAR + [place] [address] [facility] Unavailable [address] + [place] [address] KRYSTA GRAY Unavailable [address] [place] [address] [facility] Unavailable [address] + [place] [address] GRAY, KRYSTA Unavailable [address] + [address] [place] [address] [facility] Unavailable [address] + [place] [address] GRAY, KRYSTA Unavailable [address] + [address] [place] [address] [facility] Unavailable [address] + [place] [address] GRAY, KRYSTA Unavailable Unavailable + [place] [address] [facility] Unavailable [address] + [place] [address] GRAY, KRYSTA Unavailable Unavailable + [place] [address] [facility] Unavailable [address] + [place] [address] GRAY, KRYSTA Unavailable Unavailable + [place] [address] [facility] Unavailable [address] + [place] [address] GRAY, KRYSTA Unavailable [address] + [address] [place] [address] [facility] Unavailable [address] + [place] [address] GRAY, KRYSTA Unavailable [address] + [address] [place] [address] [facility] Unavailable [address] + [place] [address] GRAY, KRYSTA Unavailable [address] + [address] [place] [address] [facility] Unavailable [address] + [place] [address] Care Team Providers Name Role Phone Krystle MEDRANO (OJNNY) Attending Unavailable ZEFERINO LEON Attending Unavailable CINDY EDOUARD (DIRECTOR COMPLIANCE) Attending Unavailable Krystle MEDRANO (JONNY) Attending Unavailable ZEFERINO LEON Attending Unavailable ZEFERINO LEON Attending Unavailable Krystle MEDRANO (PAReneeC) Attending Unavailable Zeferino Leon Attending Unavailable Zeferino Leon Primary Care Unavailable Carolyn, Zeferino Primary Care Unavailable Cade, Yayo Admitting Unavailable JoJass camarenaic Attending Unavailable ASSESSMENT, HEALTH RISK Attending Unavailable ASSESSMENT, HEALTH RISK Referring Unavailable Carolyn, Zeferino Primary Care Unavailable Bibiana Campbell D.C. Attending Unavailable Knollcrest, Zeferino Referring Unavailable Car, Santana Attending Unavailable Car, Santana Referring Unavailable Car, Santana Attending Unavailable [place], Zeferino Referring Unavailable Carolyn, Zeferino Primary Care Unavailable , RUMA Attending Unavailable RUMA RETANA Referring Unavailable [place], Zeferino Primary Care Unavailable Carolyn, Zeferino Primary Care Unavailable Hermelindo Gauthier Attending Unavailable Noe Lai Attending Unavailable Carolyn, Zeferino Primary Care Unavailable Ming, Noe Referring Unavailable Jackson Brown Attending Unavailable [place], Zeferino Referring Unavailable Carolyn, Zeferino Primary Care Unavailable Krystle Medrano Attending Unavailable Carolyn, Zeferino Primary Care Unavailable Krystle Medrano Attending Unavailable Krystle Medrano Referring Unavailable [place], Zeferino Primary Care Unavailable Noe Lai Attending Unavailable Ming, oNe Referring Unavailable [place], Zeferino Primary Care Unavailable Jackson Brown Attending Unavailable Carolyn, Zeferino Referring Unavailable [place], Zeferino Primary Care Unavailable Marisa Aden Attending Unavailable [place], Zeferino Referring Unavailable [place], Zeferino Primary Care Unavailable Carolyn, Zeferino Primary Care Unavailable Everette Melo Attending Unavailable Everette Villalpando Attending Unavailable Cade, Yayo Referring Unavailable Carolyn, Zeferino Attending Unavailable [place], Zeferino Primary Care Unavailable Carolyn, Zeferino Attending Unavailable Carolyn, Zeferino Primary Care Unavailable [place], Zeferino Referring Unavailable Carolyn, Zeferino Attending Unavailable [place], Zeferino Referring Unavailable Carolyn, Zeferino Primary Care Unavailable Cade, Yayo Admitting Unavailable Jopperi, Woody Attending Unavailable [place], Zeferino Primary Care Unavailable Jopperi, Woody Consulting Unavailable Cade, Yayo Admitting Unavailable Cade, Yayo Attending Unavailable Carolyn, Zeferino Primary Care Unavailable Cade, Yayo Consulting Unavailable Carolyn, Zeferino Attending Unavailable [place], Zeferino Primary Care Unavailable Carolyn, Zeferino Referring Unavailable Amparo Hitchcock Attending Unavailable Carolyn, Zeferino Referring Unavailable [place], Zeferino Primary Care Unavailable Carolyn, Zeferino Attending Unavailable [place], Zeferino Primary Care Unavailable Bibiana Campbell D.C. Attending Unavailable Carolyn, Zeferino Referring Unavailable [place], Zeferino Primary Care Unavailable PROBLEMS PROBLEMS DATE TYPE CONDITION / CODE ATTENDING STATUS SOURCE 09/17/2018 Unknown E11.9 - Type 2 Zeferino Leon Active [place] diabetes mellitus [facility] without Hospital complications / Repository E11.9(ICD-10) 05/27/2018 Unknown R35.0 - Frequency of Santana Yoon Active [place] micturition / [facility] R35.0(ICD-10) Hospital Repository 05/27/2018 Unknown M54.17 - Dossidinh, Bibiana Active [place] Radiculopathy, [facility] lumbosacral region / Hospital M54.17(ICD-10) Repository 05/27/2018 Unknown M51.26 - Other Dossidinh, Bibiana Active [place] intervertebral disc D.C. 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 [facility] degeneration, [facility] lumbosacral region / Repository M51.37(ICD-10) 05/01/2018 Unknown R07.81 - Pleurodynia RUMA RETANA Active [place] / R07.81(ICD-10) [facility] Hospital Repository 12/13/2017 Unknown R20.0 - Anesthesia Krystle Medrano Active [place] of skin / [facility] R20.0(ICD-10) Hospital Repository 11/25/2017 Unknown Z30.431 - Encounter Marisa Aden Active [place] for routine checking [facility] contraceptive device Repository / Z30.431(ICD-10) PROCEDURES PROCEDURES No Procedure Records FoundRESULTS RESULTS EMERGENCY DEPARTMENT Observed: 09/30/2018 Status: F Source: [place] SUMMARY 3:59 PM [facility] HOSPITAL REPOSITORY [facility] Medical Records Department [address] [place] [address] Emergency Department Summary 09/30/18 1514 MR#: [id number] Acct: [id number] Name: SALEEM GRAY Ivan Rep #: [id number] : 1980 38 From: Everette [place] DO PCP: Zeferino Leon MD Status: DEP ER - ER Visit Summary Date of Service: 09/30/18 Chief Complaint: Workmen's Comp. injury History of Present Illness: The patient is a 38 F who was cleaning her room today when a shelf fell striking the left side of her body particularly the left forearm/elbow as well as the left knee and foot. She is able to ambulate. Full range of motion. She states that her middle ring and little finger feels swollen and tingly. Physical Examination: Afebrile vital signs stable Gen: Well-nourished well-developed Head: Normocephalic atraumatic Eyes: Perrl EOMI ENT: TMs clear no rhinorrhea moist mucous membranes Neck: Supple no lymphadenopathy no JVD nontender CVS: Regular rate rhythm no murmurs normal S1-S2 Respiratory: No distress clear to auscultation bilaterally chest nontender Abdomen: Soft nontender nondistended normal bowel sounds no masses Back: Nontender Extremity: Tender palpation over the left proximal forearm posteriorly and proximal wrist. Full pronation supination. Full extension and flexion at the elbow joint. There are vascular intact. There is small contusion noted over the lateral inferior knee. No joint effusion. Full extension and flexion. Ligaments are stable. Skin: Normal color no rash Neuro: alert orientated 3 CN II-XII intact normal strength sensation reflexes gait cerebellar Psych: Normal affect normal mood Test Results: Forearm films were obtained. These were negative for fracture. Emergency Department Course and Treatment: Patient will be discharged home with supportive care. Tylenol or ibuprofen for pain. Ice. Follow-up with corporate care if not improved Impression: 1. Left forearm contusion 2. Left knee contusion This note was generated with [employer] dictation software. It may contain incorrect words, spelling, and punctuation that were not noted in review of the chart prior to signing ED Disposition - Plan for ED Patient: Disposition: Home or Assisted Living Chief Complaint: Upper Extremity Injury Instructions: ED Contusion Soft Tissue Referrals: Corporate,Care [GROUP OF PHYSICIANS] - 1 Week if not improving What to do if you have Problems For any increased pain, shortness of breath, bleeding, nausea or vomiting, chest pain, or any unexpected problems, contact your Primary Care Provider. Call [facility] ([phone]) or report to the closest Emergency Room. Call 911 if necessary. 09/30/18 1556 <Electronically signed by Everette [place] DO> Date Everette Melo DO Cosigner Signature (If Indicated): Date CC: Zeferino Leon MD FOREARM 2 VIEWS Observed: 09/30/2018 Status: F Source: [place] 3:13 PM [facility] HOSPITAL REPOSITORY [facility] Imaging Services [address] [place] [address] Forearm 2 Views MR#: [id number] Acct: [id number] Name: SALEEM GRAY Rep #: [id number] : 1980 F 38 From: Emiliano Gonzalez MD PCP: Zeferino Leon MD Status: DEP ER Study: Forearm 2 Views Date of Exam: 09/30/18 Exam# [id number] Ordering Dr: Everette [place] DO STUDY: X-RAY - LEFT RADIUS AND ULNA REASON FOR EXAM: Female, 38 years old. Pain following injury. TECHNIQUE: 2 view(s) of the forearm. COMPARISON: None. FINDINGS: There is no demonstrated soft tissue swelling. Normal visualized radius. Normal visualized ulna. RAD/Forearm 2 Views IMPRESSION: Normal x-ray examination of the radius and ulna. Electronically Signed: Emiliano Gonzalez MD at 15:52 EST Tel [phone], Service support , CC: Everette [place] DO; Zeferino Leon MD Stator Tester: Signed MICROALB:CREAT Collected: 09/30/2018 Status: F Source: [place] RATIO,RANDOM UR 9:07 AM [facility] REPOSITORY TYPE CODE TESTS RESULT OUT OF RANGE REFERENCE UNITS LAB L501.1200 NO RANGE EST. mg/dL Normal UR CREAT 123.00 LAB L502.0500 NO RANGE EST. mg/L Normal 730.0 MICROALBUMIN ,UR LAB L502.0600 <30 mg/g CRE mg/g CRE High 593.5 MALB:CREAT Performed By: #### L502.0250 #### [facility] [address] [place], [address] HEMOGLOBIN A1C Collected: 09/30/2018 Status: F Source: [place] 9:07 AM [facility] REPOSITORY TYPE CODE TESTS RESULT OUT OF RANGE REFERENCE UNITS LAB L501.9985 4.2-6.3 % Normal HGB A1C 6.2 Performed By: #### L501.9985 #### [facility] [address], [address] PROGRESS Observed: 09/29/2018 Status: COMPLETED Source: [place] 4:[address] [facility] [place] REPOSITORY HNO ID: [id number] Author: Krystle Carroll (PaReneeC) Mitchell Service: (none) Author Type: Physician Message Clerk Type: Progress Notes Filed: 09/29/2018 10:11 PM Note Text: 38 year old female with c/o 1. 4 month anniversary of father's . Feeling sad. Feels crazy difficulty sleeping, tearful, irizarry. Ativan helps; uses minimally. Paxil helps significantly. 2. Went to [facility] ED and was admitted overnight with SOB, dizzy, lightheadedness, pain in left anterior ribs. Nothing found. CT head, MRI brain WNL. Normal echocardiogram. No scanning done of chest. 3. Diabetes improving. Compliant with meds. Worried about kidney function. Mild microalbuminuria. Denies blurred vision, excessive urination weight changes, chest pain, SOB, new paresthesia. CMP: Glucose 93 08/12/2015 BUN 9 08/12/2015 Creatinine 0.59 08/12/2015 Sodium 136 08/12/2015 Potassium 3.9 08/12/2015 Chloride 97 08/12/2015 CO2 25 08/12/2015 Protein, Total 7.3 08/12/2015 Albumin 4.3 08/12/2015 Calcium 9.0 08/12/2015 Alkaline Phosphatase 62 08/12/2015 Bilirubin, Total 0.6 08/12/2015 AST 23 08/12/2015 ALT 26 08/12/2015 Hemoglobin A1C Date Value 07/15/2018 7.2 05/28/2014 5.4 % 02/22/2014 5.3 % ) Cholesterol, Total (mg/dL) Date Value 02/22/2014 168 12/05/2012 187 Cholesterol (no units) Date Value 07/04/2018 179 HDL Cholesterol Date Value 07/04/2018 28 02/22/2014 33 mg/dL 12/05/2012 33 mg/dL LDL Cholesterol Date Value 07/04/2018 95 02/22/2014 113 mg/dL 12/05/2012 105 mg/dL Triglyceride Date Value 07/04/2018 281 02/22/2014 108 mg/dL 12/05/2012 245 mg/dL HISTORIESe FAMILY HISTORY Problem Relation Age of Onset - Heart Father AL - Heart Paternal Grandmother TRIPLE BYPASS SURGERY - Cancer Maternal Grandmother LUNG CANCER - Cancer Father PANCREATIC CANCER - Diabetes Maternal Grandfather - Diabetes Father - Alcohol/Drug Mother PAST MEDICAL HISTORY Diagnosis Date - Acute cholecystitis Cholecystitis PAST SURGICAL HISTORY Procedure Laterality Date - DELIVERY ONLY 2005 , low cervical - INSERT INTRAUTERINE DEVICE 10/19/08 mirena - LAPAROSCOPIC CHOLEYCYSTECTOMY 2005 Cholecystectomy, lap (Rownea Monet) - REMOVE IUD 07/13/2010 Social History Marital status: Single Spouse name: Years of education: 12 Number of children: 1 Occupational History Occupation Employer Comment [employer] Social History Main Topics Smoking status: Never Smoker Smokeless tobacco: Never Used Alcohol use: No Drug use: No Sexual activity: No Other Topics Concern No BLOOD TRANSFUSIONS No CAFFEINE No OCCUPATIONAL EXPOSURE No HOBBY HAZARD No SLEEP CONCERN No STRESS CONCERN No WEIGHT CONCERN No DIET No BACK CARE No EXERCISE Yes Comment:DOESNT EXERCISE ROUTINELY BIKE HELMET No SEAT BELT No SELF EXAMS Yes Comment:DOESNT DO SBE ACTIVE PROBLEM LIST Other Acne Morbid Obesity (Hcc) Lumbar Disc Disorder Anxiety Type 2 Diabetes Mellitus Without Complication, With Long-Term Current Use of Insulin (Hcc) Fatty Liver Letitia (Obstructive Sleep Apnea) Current Outpatient Prescriptions: tiZANidine (ZANAFLEX) 4 mg tablet Take 1 tablet by mouth every 8 hours as needed. Disp: 20 tablet Rfl: 1 PARoxetine (PAXIL) 10 mg tablet Take 1 tablet by mouth once daily. Disp: 30 tablet Rfl: 1 erenumab-aooe (AIMOVIG AUTOINJECTOR) 70 mg/mL AutoInjector Inject 1 Dose subcutaneously once every month. Disp: Rfl: metFORMIN ER (GLUCOPHAGE XR) 500 mg 24 hr tablet Take 1 tablet by mouth daily with breakfast. Disp: 30 tablet Rfl: 11 albuterol HFA (VENTOLIN HFA) 90 mcg/actuation inhaler Inhale 2 Puffs as instructed every 4 hours as needed for Wheezing/Shortness of Breath. Disp: 1 Inhaler Rfl: 5 levonorgestrel (BELA) 14 mcg/24 hour (3 years) IUD IUD 1 Each by INTRAUTERINE route one time only. Bela: new one placed on 10/03/17 Disp: Rfl: 0 Sjgrloif-Au-Svx-Fe-FA ( FORMULA) ORAL Tab Take 1 tablet by mouth once daily. Disp: Rfl: 0 COMPOUNDED PRESCRIPTION Urine microalbumin. [id number]: DMIIDo in six to eight weeks Disp: 1 Each Rfl: 0 blood sugar diagnostic (BLOOD GLUCOSE TEST) test strip Test blood sugar(s) 1 times daily. Dx: Type 2 DM - Controlled E11.9 Insulin: Yes Disp: 50 Strip Rfl: 11 Lancets lancets Test blood sugar(s) 1 times daily. Dx: Type 2 DM - Controlled E11.9 Insulin: No Disp: 100 Each Rfl: 11 No current facility-administered medications for this visit. DILATED RETINAL EXAM due on 1992 ONE PNEUMOVAX PRIOR TO AGE 67 due on 1998 EXAM: BP 120/84 Pulse 76 Temp 36.9 ?C (98.4 ?F) (Tympanic) Resp 16 Wt 126.1 kg (278 lb) BMI 43.54 kg/m? Pleasant adult woman in no acute distress. Alert and oriented all spheres. Normal affect and cognition. Speech normal. No deficits to learning or comprehension. Normal judgment. Skin warm, dry, pink to lips and nailbeds. Normal turgor. Respirations regular and unlabored. Chest CTA. HRRR without murmur or gallop. Anterior chest wall tender Left upper quad: TTPs with muscular insertions lower costal margin. TTPs posterior thoracic several areas with restrictions. Extrem: no clubbing, cyanosis, edema. Extremities are warm and pink with prompt capillary refill. OMT: HVLA to thoracic segments with restored function and sense of Improvement in pressure radiating to belly. ASSESSMENT/PLAN: 1. Situational anxiety - ICD9: 300.09, ICD10: F41.8 (primary diagnosis) Refill ativan. Responsible use. 2. Rib pain on left side - ICD9: 786.50, ICD10: R07.81 Ice/ moist heat, lineaments, OTC analgesics as needed,. Stretching and posture reviewed. F/u prn 3. Somatic dysfunction of thoracic region - ICD9: 739.2, ICD10: M99.02 F/u prn for OMT 4. Somatic dysfunction of rib - ICD9: 739.8, ICD10: M99.08 As abobe 5. Grief - ICD9: 309.0, ICD10: F43.21 - LORAZEPAM 0.5 MG TABLET 6. Anxiety and depression - ICD9: 300.00, 311, ICD10: F41.9, F32.9 - LORAZEPAM 0.5 MG TABLET 7. Fatty liver - ICD9: 571.8, ICD10: K76.0 Mild liver enzyme elevation F/u prn and in 3 months. Labs prior. JONNY Contreras Observed: 09/29/2018 Status: COMPLETED Source: [place] 3:00 PM [facility] REPOSITORY Office Visit (FAMPWS) SALEEM GRAY ([id number]) 1980 F Date Time Provider Department 09/29/18 3:00 PM Krystle MEDRANO) [facility] During your visit today, we recorded the following information about you: Temperature Pulse Respiration Blood pressure 98.4 degrees 76/minute 16/minute 120/84 Weight 126.1 kg M Glen Medrano PA-C 09/29/2018 10:11 PM Signed 38 year old female with c/o 1. 4 month anniversary of father's . Feeling sad. Feels crazy difficulty sleeping, tearful, irizarry. Ativan helps; uses minimally. Paxil helps significantly. 2. Went to [facility] ED and was admitted overnight with SOB, dizzy, lightheadedness, pain in left anterior ribs. Nothing found. CT head, MRI brain WNL. Normal echocardiogram. No scanning done of chest. 3. Diabetes improving. Compliant with meds. Worried about kidney function. Mild microalbuminuria. Denies blurred vision, excessive urination weight changes, chest pain, SOB, new paresthesia. CMP: Glucose 93 08/12/2015 BUN 9 08/12/2015 Creatinine 0.59 08/12/2015 Sodium 136 08/12/2015 Potassium 3.9 08/12/2015 Chloride 97 08/12/2015 CO2 25 08/12/2015 Protein, Total 7.3 08/12/2015 Albumin 4.3 08/12/2015 Calcium 9.0 08/12/2015 Alkaline Phosphatase 62 08/12/2015 Bilirubin, Total 0.6 08/12/2015 AST 23 08/12/2015 ALT 26 08/12/2015 Hemoglobin A1C Date Value 07/15/2018 7.2 05/28/2014 5.4 % 02/22/2014 5.3 % ) Cholesterol, Total (mg/dL) Date Value 02/22/2014 168 12/05/2012 187 Cholesterol (no units) Date Value 07/04/2018 179 HDL Cholesterol Date Value 07/04/2018 28 02/22/2014 33 mg/dL 12/05/2012 33 mg/dL LDL Cholesterol Date Value 07/04/2018 95 02/22/2014 113 mg/dL 12/05/2012 105 mg/dL Triglyceride Date Value 07/04/2018 281 02/22/2014 108 mg/dL 12/05/2012 245 mg/dL HISTORIESe FAMILY HISTORY Problem Relation Age of Onset - Heart Father AL - Heart Paternal Grandmother TRIPLE BYPASS SURGERY - Cancer Maternal Grandmother LUNG CANCER - Cancer Father PANCREATIC CANCER - Diabetes Maternal Grandfather - Diabetes Father - Alcohol/Drug Mother PAST MEDICAL HISTORY Diagnosis Date - Acute cholecystitis Cholecystitis PAST SURGICAL HISTORY Procedure Laterality Date - DELIVERY ONLY 2006 , low cervical - INSERT INTRAUTERINE DEVICE 10/19/08 mirena - LAPAROSCOPIC CHOLEYCYSTECTOMY 2005 Cholecystectomy, lap (Rowena Monet) - REMOVE IUD 07/13/2010 Social History Marital status: Single Spouse name: Years of education: 12 Number of children: 1 Occupational History Occupation Employer Comment [employer] and [employer]* [employer] Student Social History Main Topics Smoking status: Never Smoker Smokeless tobacco: Never Used Alcohol use: No Drug use: No Sexual activity: No Other Topics Concern No BLOOD TRANSFUSIONS No CAFFEINE No OCCUPATIONAL EXPOSURE No HOBBY HAZARD No SLEEP CONCERN No STRESS CONCERN No WEIGHT CONCERN No DIET No BACK CARE No EXERCISE Yes Comment:DOESNT EXERCISE ROUTINELY BIKE HELMET No SEAT BELT No SELF EXAMS Yes Comment:DOESNT DO SBE ACTIVE PROBLEM LIST Other Acne Morbid Obesity (Hcc) Lumbar Disc Disorder Anxiety Type 2 Diabetes Mellitus Without Complication, With Long-Term Current Use of Insulin (Hcc) Fatty Liver Letitia (Obstructive Sleep Apnea) Current Outpatient Prescriptions: tiZANidine (ZANAFLEX) 4 mg tablet Take 1 tablet by mouth every 8 hours as needed. Disp: 20 tablet Rfl: 1 PARoxetine (PAXIL) 10 mg tablet Take 1 tablet by mouth once daily. Disp: 30 tablet Rfl: 1 erenumab-aooe (AIMOVIG AUTOINJECTOR) 70 mg/mL AutoInjector Inject 1 Dose subcutaneously once every month. Disp: Rfl: metFORMIN ER (GLUCOPHAGE XR) 500 mg 24 hr tablet Take 1 tablet by mouth daily with breakfast. Disp: 30 tablet Rfl: 11 albuterol HFA (VENTOLIN HFA) 90 mcg/actuation inhaler Inhale 2 Puffs as instructed every 4 hours as needed for Wheezing/Shortness of Breath. Disp: 1 Inhaler Rfl: 5 levonorgestrel (BELA) 14 mcg/24 hour (3 years) IUD IUD 1 Each by INTRAUTERINE route one time only. Bela: new one placed on 10/03/17 Disp: Rfl: 0 Ndaopdkn-Hc-Lxv-Fe-FA ( FORMULA) ORAL Tab Take 1 tablet by mouth once daily. Disp: Rfl: 0 COMPOUNDED PRESCRIPTION Urine microalbumin. [id number]: DMIIDo in six to eight weeks Disp: 1 Each Rfl: 0 blood sugar diagnostic (BLOOD GLUCOSE TEST) test strip Test blood sugar(s) 1 times daily. Dx: Type 2 DM - Controlled E11.9 Insulin: Yes Disp: 50 Strip Rfl: 11 Lancets lancets Test blood sugar(s) 1 times daily. Dx: Type 2 DM - Controlled E11.9 Insulin: No Disp: 100 Each Rfl: 11 No current facility-administered medications for this visit. DILATED RETINAL EXAM due on 1992 ONE PNEUMOVAX PRIOR TO AGE 67 due on 1998 EXAM: BP 120/84 Pulse 76 Temp 36.9 ?C (98.4 ?F) (Tympanic) Resp 16 Wt 126.1 kg (278 lb) BMI 43.54 kg/m? Pleasant adult woman in no acute distress. Alert and oriented all spheres. Normal affect and cognition. Speech normal. No deficits to learning or comprehension. Normal judgment. Skin warm, dry, pink to lips and nailbeds. Normal turgor. Respirations regular and unlabored. Chest CTA. HRRR without murmur or gallop. Anterior chest wall tender Left upper quad: TTPs with muscular insertions lower costal margin. TTPs posterior thoracic several areas with restrictions. Extrem: no clubbing, cyanosis, edema. Extremities are warm and pink with prompt capillary refill. OMT: HVLA to thoracic segments with restored function and sense of Improvement in pressure radiating to belly. ASSESSMENT/PLAN: 1. Situational anxiety - ICD9: 300.09, ICD10: F41.8 (primary diagnosis) Refill ativan. Responsible use. 2. Rib pain on left side - ICD9: 786.50, ICD10: R07.81 Ice/ moist heat, lineaments, OTC analgesics as needed,. Stretching and posture reviewed. F/u prn 3. Somatic dysfunction of thoracic region - ICD9: 739.2, ICD10: M99.02 F/u prn for OMT 4. Somatic dysfunction of rib - ICD9: 739.8, ICD10: M99.08 As abobe 5. Grief - ICD9: 309.0, ICD10: F43.21 - LORAZEPAM 0.5 MG TABLET 6. Anxiety and depression - ICD9: 300.00, 311, ICD10: F41.9, F32.9 - LORAZEPAM 0.5 MG TABLET 7. Fatty liver - ICD9: 571.8, ICD10: K76.0 Mild liver enzyme elevation F/u prn and in 3 months. Labs prior. M Glen Medrano PA-C Referring Provider: SELF [[id number]] Allergies As of Date: 09/29/2018 (No Known Allergies) Date Reviewed: 09/29/2018 Reviewed by: Helen Camacho LPN - Fully Assessed Reason for Visit: Pain [78] Cmt: left upper abdomen. Anxiety [9] Cmt: worse in the last week Primary Visit Diagnosis:Situational anxiety [F41.8] Other Visit Diagnoses:Rib pain on left side [R07.81] Somatic dysfunction of thoracic region [M99.02] Somatic dysfunction of rib [M99.08] Grief [F43.21] Anxiety and depression [F41.9, F32.9] Fatty liver [K76.0] Order(s):LORazepam (ATIVAN) 0.5 mg tabTake 1 tablet by mouth three times daily as needed (anxiety) for up to 30 days.Disp: 10 tabletRfl: 0 Prescriptions as of 09/29/2018 Sig: TIZANIDINE 4 MG TABLET Take 1 tablet by mouth every * PAROXETINE 10 MG TABLET Take 1 tablet by mouth once d* ERENUMAB-AOOE 70 MG/ML SUBCUT* Inject 1 Dose subcutaneously * METFORMIN ER 500 MG TABLET,EX* Take 1 tablet by mouth daily * ALBUTEROL SULFATE HFA 90 MCG/* Inhale 2 Puffs as instructed * LEVONORGESTREL 14 MCG/24 HOUR* 1 Each by INTRAUTERINE route * * VITAMIN,CALCIUM,MINE* Take 1 tablet by mouth once d* LORAZEPAM 0.5 MG TABLET Take 1 tablet by mouth three * COMPOUNDED PRESCRIPTION Urine microalbumin. hba1c DX* BLOOD SUGAR DIAGNOSTIC STRIPS Test blood sugar(s) 1 times d* LANCETS Test blood sugar(s) 1 times d* Problem List As Of Date 09/29/2018 Noted Resolved SUPERVIS NORMAL 1ST PREG [Z34.00] INVALID FOR*07/02/2006 TRANS HYPERTEN-ANTEPART [O13.9] INVALID FOR*07/02/2006 KERATOSIS PILARIS////SKIN ANOMALY NEC [Q82.8] INVALID FOR*01/23/2010 Other Acne [L70.8] INVALID FOR* FOLLICULITIS///HAIR DISEASES NEC [L73.8] INVALID FOR*01/23/2010 Lichenification and Lichen Simplex Chronicus [L*INVALID FOR*01/23/2010 DERMATOFIBROMA///BENIGN KAILEY SKIN ARM [D23.60] INVALID FOR*01/23/2010 Contact Dermatitis and Other Eczema, due to Uns*INVALID FOR*01/23/2010 SACROILIITIS [M46.1] INVALID FOR*01/23/2010 Routine general medical examination at a health*INVALID FOR*12/06/2012 Class: Chronic More... Routine gynecological examination [Z01.419] INVALID FOR*02/22/2014 Class: Chronic Morbid Obesity [E66.01] INVALID FOR* Lumbar Disc Disorder [M51.9] INVALID FOR* More... Routine general medical examination at a health*INVALID FOR*02/22/2014 Anxiety [F41.9] INVALID FOR* Type 2 diabetes mellitus without complication, *INVALID FOR* Fatty liver [K76.0] INVALID FOR* More... LETITIA (obstructive sleep apnea) [G47.33] INVALID FOR* More... Prescriptions ordered this encounter Disp Refills Start End LORAZEPAM 0.5 MG TABLET 10 t* 0 09/29/2018 10/29/2018 Class: Print RX Route: ORAL Sig: Take 1 tablet by mouth three times daily as needed (anxiety) for up to 30 days. Medications Discontinued During This Encounter LORazepam (ATIVAN) 0.5 mg tab 10 t* 0 06/03/2018 09/29/2018 Class: Print RX Route: ORAL Sig: Take 1 tablet by mouth three times daily as needed (anxiety) for up to 30 days. Disc: Reason for discontinue is not on file. Encounter Status:Closed by Krystle MEDRANO PA-C on 09/29/18 PROGRESS Observed: 08/21/2018 Status: COMPLETED Source: [place] 2:59 PM [facility] HNO ID: [id number] Author: Zeferino Leon Service: (none) Author Type: Physician Type: Progress Notes Filed: 08/21/2018 3:18 PM Note Text: Patient presents with: Diabetes: follow up HPI: Patient presents today for office visit for follow up. Nursing Notes: Juliana Barkley Ma 08/21/2018 2:54 PM Signed DM: Reports overall feeling well. Medication side effects: No. Home sugar checks: 78-191 since checking, usually 100-120, checking 1-2 times a day Hypoglycemic spells: No. Watching diet: Scheduled to see forensic science technician in a couple weeks . Unexpected weight loss: No. Polyuria, polydipsia: No. Vision Changes: No, getting better since controlling sugars Foot lesions or numbness or pain: Left foot numb and tingling She met with diabetic nurse at [facility]. Having her keep a food log and check her sugars at different times of the day. DM:sugars have been overall pretty good. Usually lower 100's. Has adjusted diet. Had microalbuminuria noted. Asked her to get rechecked. Psych:emotionally stable. Overall doing well. Recently in the hospital for vertigo. Feeling better. No further episodes. Work up negative. Discussed weight loss, if continues to have issues, can consider belviq or contrave. MEDICATIONS: Current Outpatient Prescriptions: tiZANidine (ZANAFLEX) 4 mg tablet Take 1 tablet by mouth every 8 hours as needed. PARoxetine (PAXIL) 10 mg tablet Take 1 tablet by mouth once daily. blood sugar diagnostic (BLOOD GLUCOSE TEST) test strip Test blood sugar(s) 1 times daily. Dx: Type 2 DM - Controlled E11.9 Insulin: Yes Lancets lancets Test blood sugar(s) 1 times daily. Dx: Type 2 DM - Controlled E11.9 Insulin: No erenumab-aooe (AIMOVIG AUTOINJECTOR) 70 mg/mL AutoInjector Inject 1 Dose subcutaneously once every month. metFORMIN ER (GLUCOPHAGE XR) 500 mg 24 hr tablet Take 1 tablet by mouth daily with breakfast. albuterol HFA (VENTOLIN HFA) 90 mcg/actuation inhaler Inhale 2 Puffs as instructed every 4 hours as needed for Wheezing/Shortness of Breath. levonorgestrel (BELA) 14 mcg/24 hour (3 years) IUD IUD 1 Each by INTRAUTERINE route one time only. Bela: new one placed on 10/03/17 Moxewiap-Ud-Cce-Fe-FA ( FORMULA) ORAL Tab Take 1 tablet by mouth once daily. No current facility-administered medications for this visit. ALLERGIES: ALLERGIES No Known Allergies PAST MEDICAL HISTORY Diagnosis Date - Acute cholecystitis Cholecystitis PAST SURGICAL HISTORY Procedure Laterality Date - DELIVERY ONLY 2006 , low cervical - INSERT INTRAUTERINE DEVICE 10/19/08 mirena - LAPAROSCOPIC CHOLEYCYSTECTOMY 2006 Cholecystectomy, lap (Rowena Monet) - REMOVE IUD 07/13/2010 FAMILY HISTORY Problem Relation Age of Onset - Heart Father AL - Heart Paternal Grandmother TRIPLE BYPASS SURGERY - Cancer Maternal Grandmother LUNG CANCER - Cancer Father PANCREATIC CANCER - Diabetes Maternal Grandfather - Diabetes Father - Alcohol/Drug Mother Social History Marital status: Single Spouse name: Years of education: 12 Number of children: 1 Occupational History Occupation Employer Comment [employer]* [employer] Student Social History Main Topics Smoking status: Never Smoker Smokeless tobacco: Never Used Alcohol use: No Drug use: No Sexual activity: No Other Topics Concern No BLOOD TRANSFUSIONS No CAFFEINE No OCCUPATIONAL EXPOSURE No HOBBY HAZARD No SLEEP CONCERN No STRESS CONCERN No WEIGHT CONCERN No DIET No BACK CARE No EXERCISE Yes Comment:DOESNT EXERCISE ROUTINELY BIKE HELMET No SEAT BELT No SELF EXAMS Yes Comment:DOESNT DO SBE Reviewed current medications, allergies, past medical history, surgical history, family history and social history today. REVIEW OF SYSTEMS All other reviewed and negative other than HPI. HEALTH MAINTENANCE: Reviewed health maintenance issues today and recommended the following in detail. DILATED RETINAL EXAM due on 1992 ONE PNEUMOVAX PRIOR TO AGE 67 due on 1998 VITALS: BP 138/86 Pulse 72 Resp 16 Wt 126.1 kg (278 lb) BMI 43.54 kg/m? Last 4 Encounter Wt Readings: Date: Wt: 08/21/2018 126.1 kg (278 lb) 07/21/2018 127 kg (280 lb) 06/03/2018 130.6 kg (288 lb) 05/01/2018 132.5 kg (292 lb) PHYSICAL EXAMINATION: General appearance: Well appearing, alert, in no acute distress, well-hydrated, well nourished. Skin: Skin color, texture, turgor normal, no suspicious rashes or lesions Head: Normocephalic, no masses, lesions, tenderness or abnormalities Lungs: Lungs clear to auscultation. No wheezing, rhonchi, rales Heart: RRR without murmur, gallop, or rubs. No ectopy Abdomen: Normal abdominal exam, Abdomen soft, non-tender. Bowel sounds normal. No masses, organomegaly Extremities: No deformities, edema, skin discoloration, clubbing or cyanosis. Good capillary refill. Musculoskeletal: No joint swelling, deformity, or tenderness ASSESSMENT/PLAN: 1. Type 2 diabetes mellitus without complication, with long- term current use of insulin (HCC) - ICD9: 250.00, V58.67, ICD10: E11.9, Z79.4 (primary diagnosis) improved control - Continue current medications, continue diet. Recheck labs before next ov 2. LETITIA (obstructive sleep apnea) - ICD9: 327.23, ICD10: G47.33 - continue weight loss. 3. Vertigo - ICD9: 780.4, ICD10: R42 - call if recurs. Zeferino Leon MD CNOV Observed: 08/21/2018 Status: COMPLETED Source: [place] 2:40 PM [facility] REPOSITORY Office Visit (FAMPWS) SALEEM GRAY ([id number]) 1980 F Date Time Provider Department 08/21/18 2:40 PM [facility] During your visit today, we recorded the following information about you: Pulse Respiration Blood pressure Weight 72/minute 16/minute 138/86 126.1 kg Juliana Barkley Ma 08/21/2018 2:54 PM Signed DM: Reports overall feeling well. Medication side effects: No. Home sugar checks: 78-191 since checking, usually 100-120, checking 1-2 times a day Hypoglycemic spells: No. Watching diet: Scheduled to see forensic science technician in a couple weeks . Unexpected weight loss: No. Polyuria, polydipsia: No. Vision Changes: No, getting better since controlling sugars Foot lesions or numbness or pain: Left foot numb and tingling She met with diabetic nurse at [facility]. Having her keep a food log and check her sugars at different times of the day. Zeferino Leon MD 08/21/2018 3:18 PM Signed Patient presents with: Diabetes: follow up HPI: Patient presents today for office visit for follow up. Nursing Notes: Juliana Barkley Ma 08/21/2018 2:54 PM Signed DM: Reports overall feeling well. Medication side effects: No. Home sugar checks: 78-191 since checking, usually 100-120, checking 1-2 times a day Hypoglycemic spells: No. Watching diet: Scheduled to see forensic science technician in a couple weeks . Unexpected weight loss: No. Polyuria, polydipsia: No. Vision Changes: No, getting better since controlling sugars Foot lesions or numbness or pain: Left foot numb and tingling She met with diabetic nurse at [facility]. Having her keep a food log and check her sugars at different times of the day. DM:sugars have been overall pretty good. Usually lower 100's. Has adjusted diet. Had microalbuminuria noted. Asked her to get rechecked. Psych:emotionally stable. Overall doing well. Recently in the hospital for vertigo. Feeling better. No further episodes. Work up negative. Discussed weight loss, if continues to have issues, can consider belviq or contrave. MEDICATIONS: Current Outpatient Prescriptions: tiZANidine (ZANAFLEX) 4 mg tablet Take 1 tablet by mouth every 8 hours as needed. PARoxetine (PAXIL) 10 mg tablet Take 1 tablet by mouth once daily. blood sugar diagnostic (BLOOD GLUCOSE TEST) test strip Test blood sugar(s) 1 times daily. Dx: Type 2 DM - Controlled E11.9 Insulin: Yes Lancets lancets Test blood sugar(s) 1 times daily. Dx: Type 2 DM - Controlled E11.9 Insulin: No erenumab-aooe (AIMOVIG AUTOINJECTOR) 70 mg/mL AutoInjector Inject 1 Dose subcutaneously once every month. metFORMIN ER (GLUCOPHAGE XR) 500 mg 24 hr tablet Take 1 tablet by mouth daily with breakfast. albuterol HFA (VENTOLIN HFA) 90 mcg/actuation inhaler Inhale 2 Puffs as instructed every 4 hours as needed for Wheezing/Shortness of Breath. levonorgestrel (BELA) 14 mcg/24 hour (3 years) IUD IUD 1 Each by INTRAUTERINE route one time only. Bela: new one placed on 10/03/17 Fpztfokd-Re-Khe-Fe-FA ( FORMULA) ORAL Tab Take 1 tablet by mouth once daily. No current facility-administered medications for this visit. ALLERGIES: ALLERGIES No Known Allergies PAST MEDICAL HISTORY Diagnosis Date - Acute cholecystitis Cholecystitis PAST SURGICAL HISTORY Procedure Laterality Date - DELIVERY ONLY 2006 , low cervical - INSERT INTRAUTERINE DEVICE 10/19/08 mirena - LAPAROSCOPIC CHOLEYCYSTECTOMY 2005 Cholecystectomy, lap (Rowena Monet) - REMOVE IUD 07/13/2010 FAMILY HISTORY Problem Relation Age of Onset - Heart Father AL - Heart Paternal Grandmother TRIPLE BYPASS SURGERY - Cancer Maternal Grandmother LUNG CANCER - Cancer Father PANCREATIC CANCER - Diabetes Maternal Grandfather - Diabetes Father - Alcohol/Drug Mother Social History Marital status: Single Spouse name: Years of education: 12 Number of children: 1 Occupational History Occupation Employer Comment [employer]* [employer] Student Social History Main Topics Smoking status: Never Smoker Smokeless tobacco: Never Used Alcohol use: No Drug use: No Sexual activity: No Other Topics Concern No BLOOD TRANSFUSIONS No CAFFEINE No OCCUPATIONAL EXPOSURE No HOBBY HAZARD No SLEEP CONCERN No STRESS CONCERN No WEIGHT CONCERN No DIET No BACK CARE No EXERCISE Yes Comment:DOESNT EXERCISE ROUTINELY BIKE HELMET No SEAT BELT No SELF EXAMS Yes Comment:DOESNT DO SBE Reviewed current medications, allergies, past medical history, surgical history, family history and social history today. REVIEW OF SYSTEMS All other reviewed and negative other than HPI. HEALTH MAINTENANCE: Reviewed health maintenance issues today and recommended the following in detail. DILATED RETINAL EXAM due on 1992 ONE PNEUMOVAX PRIOR TO AGE 67 due on 1998 VITALS: BP 138/86 Pulse 72 Resp 16 Wt 126.1 kg (278 lb) BMI 43.54 kg/m? Last 4 Encounter Wt Readings: Date: Wt: 08/21/2018 126.1 kg (278 lb) 07/21/2018 127 kg (280 lb) 06/03/2018 130.6 kg (288 lb) 05/01/2018 132.5 kg (292 lb) PHYSICAL EXAMINATION: General appearance: Well appearing, alert, in no acute distress, well-hydrated, well nourished. Skin: Skin color, texture, turgor normal, no suspicious rashes or lesions Head: Normocephalic, no masses, lesions, tenderness or abnormalities Lungs: Lungs clear to auscultation. No wheezing, rhonchi, rales Heart: RRR without murmur, gallop, or rubs. No ectopy Abdomen: Normal abdominal exam, Abdomen soft, non-tender. Bowel sounds normal. No masses, organomegaly Extremities: No deformities, edema, skin discoloration, clubbing or cyanosis. Good capillary refill. Musculoskeletal: No joint swelling, deformity, or tenderness ASSESSMENT/PLAN: 1. Type 2 diabetes mellitus without complication, with long- term current use of insulin (HCC) - ICD9: 250.00, V58.67, ICD10: E11.9, Z79.4 (primary diagnosis) improved control - Continue current medications, continue diet. Recheck labs before next ov 2. LETITIA (obstructive sleep apnea) - ICD9: 327.23, ICD10: G47.33 - continue weight loss. 3. Vertigo - ICD9: 780.4, ICD10: R42 - call if recurs. Zeferino Leon MD Referring Provider: ZEFERINO LEON [[id number]] Allergies As of Date: 08/21/2018 (No Known Allergies) Date Reviewed: 05/01/2018 Reviewed by: Jovana Hylton Roller Printer - Fully Assessed Reason for Visit: Diabetes [34] Cmt: follow up Primary Visit Diagnosis:Type 2 diabetes mellitus without complication, with long-term current use of insulin (HCC) [E11.9, Z79.4] Other Visit Diagnoses:LETITIA (obstructive sleep apnea) [G47.33] Vertigo [R42] Order(s):COMPOUNDED PRESCRIPTIONUrine microalbumin. hba1c DX: DMII Do in six to eight weeksDisp: 1 EachRfl: 0 Prescriptions as of 08/21/2018 Sig: TIZANIDINE 4 MG TABLET Take 1 tablet by mouth every * PAROXETINE 10 MG TABLET Take 1 tablet by mouth once d* BLOOD SUGAR DIAGNOSTIC STRIPS Test blood sugar(s) 1 times d* LANCETS Test blood sugar(s) 1 times d* ERENUMAB-AOOE 70 MG/ML SUBCUT* Inject 1 Dose subcutaneously * METFORMIN ER 500 MG TABLET,EX* Take 1 tablet by mouth daily * ALBUTEROL SULFATE HFA 90 MCG/* Inhale 2 Puffs as instructed * LEVONORGESTREL 14 MCG/24 HOUR* 1 Each by INTRAUTERINE route * * VITAMIN,CALCIUM,MINE* Take 1 tablet by mouth once d* COMPOUNDED PRESCRIPTION Urine microalbumin. hba1c DX* Problem List As Of Date 08/21/2018 Noted Resolved SUPERVIS NORMAL 1ST PREG [Z34.00] INVALID FOR*07/02/2006 TRANS HYPERTEN-ANTEPART [O13.9] INVALID FOR*07/02/2006 KERATOSIS PILARIS////SKIN ANOMALY NEC [Q82.8] INVALID FOR*01/23/2010 Other Acne [L70.8] INVALID FOR* FOLLICULITIS///HAIR DISEASES NEC [L73.8] INVALID FOR*01/23/2010 Lichenification and Lichen Simplex Chronicus [L*INVALID FOR*01/23/2010 DERMATOFIBROMA///BENIGN KAILEY SKIN ARM [D23.60] INVALID FOR*01/23/2010 Contact Dermatitis and Other Eczema, due to Uns*INVALID FOR*01/23/2010 SACROILIITIS [M46.1] INVALID FOR*01/23/2010 Routine general medical examination at a health*INVALID FOR*12/06/2012 Class: Chronic More... Routine gynecological examination [Z01.419] INVALID FOR*02/22/2014 Class: Chronic Morbid Obesity [E66.01] INVALID FOR* Lumbar Disc Disorder [M51.9] INVALID FOR* More... Routine general medical examination at a health*INVALID FOR*02/22/2014 Anxiety [F41.9] INVALID FOR* Type 2 diabetes mellitus without complication, *INVALID FOR* Fatty liver [K76.0] INVALID FOR* More... LETITIA (obstructive sleep apnea) [G47.33] INVALID FOR* More... Visit Notes: >> Juliana Barkley James [facility] Aug 21, 2018 2:46 PM Status: Signed DM: Reports overall feeling well. Medication side effects: No. Home sugar checks: 78-191 since checking, usually 100-120, checking 1-2 times a day Hypoglycemic spells: No. Watching diet: Scheduled to see forensic science technician in a couple weeks . Unexpected weight loss: No. Polyuria, polydipsia: No. Vision Changes: No, getting better since controlling sugars Foot lesions or numbness or pain: Left foot numb and tingling She met with diabetic nurse at [facility]. Having her keep a food log and check her sugars at different times of the day. Prescriptions ordered this encounter Disp Refills Start End COMPOUNDED PRESCRIPTION 1 Ea* 0 08/21/2018 Class: Print RX Sig: Urine microalbumin. hba1c DX: DMII Do in six to eight weeks Medications Discontinued During This Encounter COMPOUNDED PRESCRIPTION 1 Ea* 0 07/21/2018 08/21/2018 Class: Print RX Sig: Tsh, cbc, urine for microalbumin DX: DM. Cold intolerance, fatigue. Disc: Course of therapy completed Disposition: Return in about 6 weeks (around 10/02/2018). Follow-up and Disposition History Recorded Encounter Status:Closed by ZEFERINO LEON MD on 08/21/18 12 LEAD ELECTROCARDIOGRAM Observed: 07/24/2018 Status: F Source: [place] 1:43 PM [facility] REPOSITORY [facility] Cardiovascular Services [address] [address] 12 Lead EKG 07/22/18 1414 MR#: [id number] Acct: [id number] Name: SALEEM GRAY Rep #: [id number] : 1980 38 From: Vin Montes MD Attending Dr: Woody Rebolledo DO Status: DIS CHASITY Ordering Dr: Mildred Sotomayor DO Date: 07/22/18 Location: [facility] Sex: F C Admitted: 07/22/18 Test Reason : DIZZINESS Blood Pressure : / mmHG Vent. Rate : 061 BPM Atrial Rate : 061 BPM P-R Int : 142 ms QRS Dur : 092 ms QT Int : 474 ms P-R-T Axes : 003 004 061 degrees QTc Int : 477 ms Normal sinus rhythm Nonspecific ST and T wave abnormality Abnormal ECG Confirmed by VIN MONTES MD ([id number]), editorial clerk GRAZYNA BLOOD ([id number]) on 07/24/2018 1:43:29 PM Referred By: Zeferino Leon Confirmed By:VIN MONTES MD 07/24/18 1343 Date Vin Montes MD CC: Woody Rebolledo DO; Mildred Sotomayor DO; Zeferino Leon MD Signed HEMOGLOBIN A1C Collected: 07/24/2018 Status: F Source: [place] 12:27 PM [facility] REPOSITORY TYPE CODE TESTS RESULT OUT OF RANGE REFERENCE UNITS LAB L501.9985 4.2-6.3 % High HGB A1C 7.2 Performed By: #### L501.9985 #### [facility] [address] [place], [place], [id number] LIVER PROFILE Collected: 07/24/2018 Status: F Source: [place] 12:27 PM [facility] REPOSITORY Order Comment: ADD ONTO DRAW FROM YESTERDAY. TYPE CODE TESTS RESULT OUT OF RANGE REFERENCE UNITS LAB L501.1500 6.4-8.2 g/dL Normal T PROT 7.3 LAB L501.1800 3.2-5.0 g/dL Normal ALB 3.7 LAB L501.1950 2.2-4.2 g/dL Normal GLOB 3.6 LAB L501.4100 15-37 U/L Normal AST 31 LAB L501.4305 45-117 U/L Normal ALK P 85 LAB L501.4405 13-56 U/L High ALT 67 LAB L501.4600 0.20-1.00 mg/dL Normal T BILI 0.50 LAB L501.4700 0.00-0.30 mg/dL Normal D BILI 0.13 Performed By: #### L500.3400, L501.9520 #### [facility] [address] [facility] [place], [place], [id number] THYROID STIM HORMONE Collected: 07/24/2018 Status: F Source: [place] (TSH) 12:27 PM [facility] REPOSITORY Order Comment: ADD ONTO DRAW FROM YESTERDAY. TYPE CODE TESTS RESULT OUT OF RANGE REFERENCE UNITS LAB L501.9520 0.358-3.74 uIU/mL Normal TSH 1.82 Performed By: #### L500.3400, L501.9520 #### [facility] [address] [facility] [place], [place], [id number] MICROALB:CREAT Collected: 07/24/2018 Status: F Source: [place] RATIO,RANDOM UR 12:27 PM [facility] REPOSITORY TYPE CODE TESTS RESULT OUT OF RANGE REFERENCE UNITS LAB L501.1200 NO RANGE EST. mg/dL Normal UR CREAT 65.30 LAB L502.0500 NO RANGE EST. mg/L Normal 190.0 MICROALBUMIN ,UR LAB L502.0600 <30 mg/g CRE mg/g CRE High 291.0 MALB:CREAT Performed By: #### L502.0250 #### [facility] [address] [place], [place], [address] CBC W/DIFF, AUTOMATED Collected: 07/24/2018 Status: F Source: [place] 12:27 PM [facility] REPOSITORY TYPE CODE TESTS RESULT OUT OF RANGE REFERENCE UNITS LAB L100.1000 4.4-11.0 K/mm3 Normal WBC 8.9 LAB L100.1200 4.2-5.4 M/mm3 Normal RBC 4.36 LAB L100.1300 12.0-15.0 g/dl Normal HGB 13.7 LAB L100.1400 37-47 % Normal HCT 40.5 LAB L100.1500 81-99 fL Normal MCV 92.9 LAB L100.1600 27.0-32.0 pg Normal MCH 31.4 LAB L100.1700 32-36 g/gl Normal MCHC 33.8 LAB L100.1810 11.6-14.6 % Normal RDW CV 13.0 LAB L100.1820 35.1-43.9 fl High RDW SD 44.2 LAB L100.1900 150-450 K/mm3 Normal PLT 207 LAB L100.2000 6.2-12.0 fl High MPV 12.4 LAB L100.2100 47-70 % Normal NEUT% 67.7 LAB L100.2200 19-41 % Normal LY% 25.5 LAB L100.2300 0-10 % Normal MONO% 4.3 LAB L100.2400 0-5 % Normal EO% 1.5 LAB L100.2500 0-1 % Normal BASO% 0.4 LAB L100.2550 0.0-0.9 % Normal IM GRAN % 0.600 Result Comment: IG% - Immature Granulocytes (promyelocytes, myelocytes and metamyelocytes) > 1% indicates that a LEFT SHIFT is Present. LAB L100.2620 2.0-7.7 X10 3/uL Normal Absolute Neut 6.0 LAB L100.2720 0.83-4.51 X10 3/ul Normal Absolute Lymph 2.27 Performed By: #### L100.0100 #### [facility] [address] [place], [address] HEPATITIS PANEL ACUTE Collected: 07/24/2018 Status: F Source: [place] 12:27 PM [facility] REPOSITORY TYPE CODE TESTS RESULT OUT OF RANGE REFERENCE UNITS LAB L3100.0200 Negative Normal HEP A Negative IgM 6734 LAB L3100.0400 Negative Normal HB Negative SURF AG LAB L3100.0440 Negative Normal HB Negative CORE [id number] LAB L3100.0650 0.0-0.9 s/co ratio Normal HEP C <0.1 AB Result Comment: Negative: < 0.8 Indeterminate: 0.8 - 0.9 Positive: > 0.9 The CDC recommends that a positive HCV antibody result be followed up with a HCV Nucleic Acid Amplification test ([id number]). Performed at: [facility] [id number] Director Voice: José Antonio Aldana PhD, Phone: [phone] Performed By: #### L3000.0375 #### [facility] (refer to report for specific site) refer to report for address and phone number BEDSIDE GLUCOSE Collected: 07/23/2018 Status: F Source: [place] 4:13 PM [facility] REPOSITORY TYPE CODE TESTS RESULT OUT OF RANGE REFERENCE UNITS LAB L501.080 70-110 mg/dL Normal BEDSIDE GLU 106 Result Comment: MANAGEMENT OF PATIENT CARE PER NURSING PROTOCOL Performed By: #### L501.080 #### [facility] Point of Care [address] [place] [address] DISCHARGE SUMMARY Observed: 07/23/2018 Status: F Source: [place] 3:47 PM [facility] REPOSITORY [facility] Medical Records Department [address] [place] [address] Discharge Summary 07/23/18 1545 MR#: [id number] Acct: [id number] Name: SALEEM GRAY Ivan Rep #: [id number] : 1980 38 From: Woody Rebolledo DO PCP: Zeferino Leon MD Status: ADM CHASITY Y Location: [place] [address] Discharge Date and Diagnosis - Problem List Patient Problems: Active and Suspected Problems (Last Reviewed 05/26/18 @ 16:28 by Samaria Ren) Vertigo (Acute) Date of Admission: 07/22/18 Date of Discharge: 07/23/18 - Primary Discharge Diagnosis Active and Suspected Problems (Last Reviewed 05/26/18 @ 16:28 by Samaria Ren) Vertigo (Acute) - Secondary Discharge Diagnosis Chronic Problems (Last Reviewed 05/26/18 @ 16:28 by Samaria Ren) Lumbosacral spondylosis (Chronic) Lumbar facet arthropathy (Chronic) Left upper quadrant abdominal pain (Chronic) Segmental and somatic dysfunction of pelvic region (Chronic) Segmental and somatic dysfunction of thoracic region (Chronic) Radiculopathy of lumbosacral region (Chronic) Disc displacement, lumbar (Chronic) 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 Electronically Signed: Raghav Shea at 16:55 EDT Tel , Service support , Brain MRI 07/22/18 17:22 IMPRESSION: Normal unenhanced MRI of the brain. Electronically Signed: Noe Michael MD at 21:44 EDT , Service support , KUB X-Ray 07/22/18 18:00 IMPRESSION: No bowel obstruction. Electronically Signed: Raghav Shea at 22:08 EDT Tel , Service support , Operations: None Procedures: 2-D Echocardiogram Summary of Care Provided: The patient is a 38 year old F presents with a near syncopal episode at work. Patient had an excellent workup, including an MRI of the brain, CT of the head, 2D echocardiogram and orthostatic vital signs which were all unremarkable. My feeling the patient has benign paroxysmal positional vertigo and I have recommended meclizine plus physical therapy for vestibular rehab. Patient does have vertical nystagmus particularly on the right that does have reproducible dizziness with lateral gaze. There is no posterior circulation stroke that is causing her symptoms. Physical exam: Patient is no acute distress and afebrile. HEENT head is atraumatic and normocephalic. No scleral icterus. Does have bilateral lateral nystagmus more prominent on the right with reproducible dizziness. [] Discharge Diet: 1800 Calorie Control Diet Discharge Activity: Return to Normal Activity Return to work on:: 07/25/18 Call your doctor if you observe: - - worsening dizziness. Home Medications: Medications to take at Discharge Lorazepam [Ativan] 0.5 mg PO PRN PRN 10/27/13 Albuterol Inhaler [Ventolin Hfa] 1 - 2 puff INHALATION Q6H PRN PRN 10/27/15 Tizanidine HCl [Zanaflex] 4 mg PO PRN PRN 04/29/17 Erenumab-Aooe [Aimovig Autoinjector (2 Pack)] 140 mg IM QMONTH 07/22/18 Ibuprofen 400 mg PO PRN PRN 07/22/18 Metformin HCl [Metformin HCl ER] 500 mg PO DAILY 07/22/18 Paroxetine [Paxil] 10 mg PO DAILY 07/22/18 Meclizine HCl 25 mg PO TID PRN #20 tab 07/23/18 Following Prescrptions Were Given to Patient: Meclizine HCl 25 mg PO TID PRN #20 tab PRN Reason: Dizziness Other Amb Orders: Physical Therapy Evaluation Location: None Selected Primary Care Physician: Zeferino Leon MD [Primary Care Provider] - Within 2 Weeks Disposition: Home Minutes spent on discharge:: 32 Patient Condition:: Good Medical Necessity - Tobacco Use Smoking Status: Never smoker Meaningful Use Info Meaningful Use Diagnoses (Choose all that apply): None applicable Code Visit OBSV E AND M: 68578 Observation care discharge 07/23/18 3839 <Electronically signed by Woody Rebolledo DO> Date Woody Rebolledo DO Cosigner Signature (if applicable): Date CC: Woody Rebolledo DO; Zeferino Leon MD Signed DISCHARGE INSTRUCTION Observed: 07/23/2018 Status: F Source: [place] 3:45 PM [facility] REPOSITORY [facility] Medical Records Department [address] [place] [address] Instructions for Home/Discharge Instructions 07/23/18 1543 MR#: [id number] Acct: [id number] Name: SALEEM GRAY Rep #: [id number] : 1980 38 From: Woody Rebolledo DO PCP: Zeferino Leon MD Status: ADM CHASITY You will use the following diet at home:: Calorie/Carbohydrate Controlled (specify 1200, 1400, etc) - 1800 Your food should be the consistency of: Regular Your liquids should be the consistency of: Regular/Thin Discharge Activity: Return to Normal Activity Return to work on:: 07/25/18 Allergies/Adverse Reactions: Allergies No Known Allergies Allergy (Verified 05/26/18 16:28) Medications to take at Discharge Lorazepam [Ativan] 0.5 mg PO PRN PRN 10/27/13 Albuterol Inhaler [Ventolin Hfa] 1 - 2 puff INHALATION Q6H PRN PRN 10/27/15 Tizanidine HCl [Zanaflex] 4 mg PO PRN PRN 04/29/17 Erenumab-Aooe [Aimovig Autoinjector (2 Pack)] 140 mg IM QMONTH 07/22/18 Ibuprofen 400 mg PO PRN PRN 07/22/18 Metformin HCl [Metformin HCl ER] 500 mg PO DAILY 07/22/18 Paroxetine [Paxil] 10 mg PO DAILY 07/22/18 Meclizine HCl 25 mg PO TID PRN #20 tab 07/23/18 The following prescriptions were given: Meclizine HCl 25 mg PO TID PRN #20 tab PRN Reason: Dizziness Orders to be completed after discharge: Physical Therapy Evaluation Location: None Selected Primary Care Physician: Zeferino Leon MD [Primary Care Provider] - Within 2 Weeks Test Results: Test results from this visit will be discussed in further detail at your follow-up appointment, if applicable. Proposed Discharge Date: 07/23/18 07/23/18 1545 <Electronically signed by Woody Rebolledo DO> Date Woody Rebolledo DO CC: Zeferino Leon MD ECHO, COMPLETE W/ Observed: 07/23/2018 Status: F Source: [place] CONTRAST 1:46 PM [facility] REPOSITORY [facility] Cardiovascular Services [address] [place] [address] Echo Complete W/ Contrast 07/23/18 0911 MR#: [id number] Acct: [id number] Name: SALEEM GRAY Rep #: [id number] : 1980 38 From: Everette Villalpando MD Attending Dr: Woody Rebolledo DO Status: ADM CHASITY Ordering Dr: Yayo Mohamud MD Date: 07/22/18 Location: [facility] Sex: F C Admitted: 07/22/18 Reason For Study: Near syncope Procedure This was a 2D Doppler, Color Flow transthoracic echocardiogram. Exam performed portable in patient room. Left Ventricle Normal size and thickness. The estimated ejection fraction is 65 %. Normal diastology for age. No regional wall motion abnormalities noted. Right Ventricle Normal size and thickness. Normal systolic function. Atria Normal left atrium. Normal right atrium. Normal atrial septum. Mitral Valve The mitral valve is structurally normal. No prolapse or stenosis seen. Trivial mitral valve insufficiency. Tricuspid Valve Normal tricuspid valve. Unable to estimate RV systolic pressure due to inadequate jet, pulmonary artery pressure probably normal. Aortic Valve Normal aortic valve. Trisinus/trileaflet aortic valve. Pulmonic Valve Normal pulmonic valve. Great Vessels Normal aortic root. Normal arch. Normal inferior vena cava. Inferior vena cava collapse with sniff. Pericardium/Pleural No pericardial effusion. MMode/2D Measurements AND Calculations LVIDd: 5.4 cm IVSd: 1.1 cm Ao root diam: 3.2 cm LVIDs: 3.6 cm LVPWd: 1.1 cm LA dimension: 4.7 cm RVDd: 3.7 cm FS: 34.5 % LAV(MOD-bp): 94.9 ml EDV(MOD-sp4): 123.5 ml SV(MOD-sp4): 76.4 ml LAV(MOD-bp) Indexed: 40.6 ml/m2 ESV(MOD-sp4): 47.0 ml LAV(MOD-sp2): 81.5 ml EF(MOD-sp4): 61.9 % LAV(MOD-sp4): 92.3 ml LA A4 area: 25.9 cm2 RA A4 area: 13.0 cm2 Doppler Measurements AND Calculations MV E max yaritza: 89.9 cm/sec Lat Peak E' Yaritza: 9.6 cm/sec Med Peak E' Yaritza: 8.0 cm/sec MV A max yaritza: 52.2 cm/sec E/E' lat: 9.4 E/E' med: 11.3 MV E/A: 1.7 Ao V2 max: 137.3 cm/sec LV V1 max: 106.0 cm/sec PA V2 max: 102.9 cm/sec Ao max P.5 mmHg LV V1 max P.5 mmHg Interpretation Summary The estimated ejection fraction is 65 %. Normal diastology for age. Unable to estimate RV systolic pressure due to inadequate jet, pulmonary artery pressure probably normal. There is no comparison study available. Ordering Physician: Yayo Mohamud Referring Physician: Zeferino Leon Performed By: Ashley Craft RDCS 07/23/18 1346 Date Everette Villalpando MD CC: Woody Rebolledo DO; Yayo Mohamud MD; Zeferino Loen MD Date Dictated: 07/23/18910 Date Transcribed: 07/23/18 134 Stator Tester: Signed BEDSIDE GLUCOSE Collected: 07/23/2018 Status: F Source: [place] 10:56 AM [facility] REPOSITORY TYPE CODE TESTS RESULT OUT OF REFERENCE UNITS RANGE LAB L501.080 70-110 mg/dL High BEDSIDE GLU 152 Result Comment: Dr Orders Followed Insulin Given MANAGEMENT OF PATIENT CARE PER NURSING PROTOCOL Performed By: #### L501.080 #### [facility] Point of Care [address] [place], [place] [address] BEDSIDE GLUCOSE Collected: 07/23/2018 Status: F Source: [place] 7:00 AM [facility] REPOSITORY TYPE CODE TESTS RESULT OUT OF REFERENCE UNITS RANGE LAB L501.080 70-110 mg/dL High BEDSIDE GLU 127 Result Comment: MANAGEMENT OF PATIENT CARE PER NURSING PROTOCOL Performed By: #### L501.080 #### [facility] Point of Care [address] [place] [address] BASIC METABOLIC Collected: 07/23/2018 Status: F Source: [place] PROFILE (BMP) 5:54 AM [facility] REPOSITORY TYPE CODE TESTS RESULT OUT OF RANGE REFERENCE UNITS LAB L501.0100 74-106 mg/dL High GLU 118 Result Comment: Fasting Glucose result from 100 to 125 mg/dL suggests IMPAIRED HOMEOSTASIS per A.D.A. criteria. Please note revised GLUCOSE reference range effective 2017. LAB L501.1000 7-18 mg/dL Normal BUN 9 LAB L501.1100 0.55-1.02 mg/dL Low CREAT,SERUM 0.50 Result Comment: The validity of the calculated GFR AND GFRAA in patients over 70 years has not been determined. Clinical correlation is essential. LAB L501.1110 >60 mL/min Normal EST GFR 149 Result Comment: Non- GFR Calc LAB L501.1115 >60 mL/min Normal EST GFR - AA 181 Result Comment: GFR Calc LAB L501.1255 ml/min Normal Estimated CRCL 151.26 LAB L501.1300 10-20 RATIO BUN/CRE Normal 18.1 LAB L501.2200 8.5-10 mg/dL Low .1 CA 7.9 LAB L501.5300 136-14 mmol/L 5 NA Normal 141 LAB L501.5600 3.5-5. mmol/L 1 K Normal 4.0 LAB L501.5900 98-107 mmol/L High CL 109 LAB L501.6100 21.0-3 mmol/L 2.0 CO2 Normal 22.0 LAB L501.6200 5-15 GAP Normal 10 Performed By: #### L500.2500 #### [facility] [address] [facility] [address] [place], [place], [address] HEMOGLOBIN A1C Collected: 07/23/2018 Status: F Source: [place] 5:54 AM [facility] REPOSITORY TYPE CODE TESTS RESULT OUT OF RANGE REFERENCE UNITS LAB L501.9985 4.2-6.3 % High HGB A1C 7.1 Performed By: #### L501.9985 #### [facility] [address] [place], [place], [address] TROPONIN-I Collected: 07/22/2018 Status: F Source: [place] 11:17 PM [facility] REPOSITORY Order Comment: 'TROP' Serial specimen #1, #2 or #3: 3 TYPE CODE TESTS RESULT OUT OF RANGE REFERENCE UNITS LAB L501.4010 <0.045 ng/mL Normal < 0.015 TROPONIN-I Result Comment: TROPONIN-I EXPECTED VALUES <0.045 Negative 0.045 - 0.590 Consistent with Cardiac Damage > OR = 0.600 Critical Value Not every elevated troponin is indicative of AL. These values should be used with clinical judgement in examining the patient's clinical picture for diagnosis. To establish a diagnosis of AL versus myocardial injury, there must be a demonstrated rise and/or fall in the troponin values, in addition to ischemic symptoms, EKG changes, new regional wall motion abnormality, and/or angiographical evidence. PLEASE NOTE: REFERENCE RANGES EDITED 18 Performed By: #### L501.4010 #### [facility] [address] [place], [address] BEDSIDE GLUCOSE Collected: 07/22/2018 Status: F Source: P[place]QUID 10:50 PM [facility] REPOSITORY TYPE CODE TESTS RESULT OUT OF REFERENCE UNITS RANGE LAB L501.080 70-110 mg/dL High BEDSIDE GLU 157 Result Comment: MANAGEMENT OF PATIENT CARE PER NURSING PROTOCOL Performed By: #### L501.080 #### [facility] Point of Care [address] [place] [address] TROPONIN-I Collected: 07/22/2018 Status: F Source: P[place]QU[place] 8:18 PM [facility] REPOSITORY Order Comment: 'TROP' Serial specimen #1, #2 or #3: 2 TYPE CODE TESTS RESULT OUT OF RANGE REFERENCE UNITS LAB L501.4010 <0.045 ng/mL Normal < 0.015 TROPONIN-I Result Comment: TROPONIN-I EXPECTED VALUES <0.045 Negative 0.045 - 0.590 Consistent with Cardiac Damage > OR = 0.600 Critical Value Not every elevated troponin is indicative of AL. These values should be used with clinical judgement in examining the patient's clinical picture for diagnosis. To establish a diagnosis of AL versus myocardial injury, there must be a demonstrated rise and/or fall in the troponin values, in addition to ischemic symptoms, EKG changes, new regional wall motion abnormality, and/or angiographical evidence. PLEASE NOTE: REFERENCE RANGES EDITED 18 Performed By: #### L501.4010 #### [facility] [address] [place], [address] BEDSIDE GLUCOSE Collected: 07/22/2018 Status: F Source: [place] 6:53 PM [facility] REPOSITORY TYPE CODE TESTS RESULT OUT OF RANGE REFERENCE UNITS LAB L501.080 70-110 mg/dL Normal BEDSIDE GLU 106 Result Comment: MANAGEMENT OF PATIENT CARE PER NURSING PROTOCOL Performed By: #### L501.080 #### [facility] Point of Care [address] [place], [place] [address] TROPONIN-I Collected: 07/22/2018 Status: F Source: P[place]QUID 5:56 PM [facility] REPOSITORY Order Comment: 'TROP' Serial specimen #1, #2 or #3: 1 TYPE CODE TESTS RESULT OUT OF RANGE REFERENCE UNITS LAB L501.4010 <0.045 ng/mL Normal < 0.015 TROPONIN-I Result Comment: TROPONIN-I EXPECTED VALUES <0.045 Negative 0.045 - 0.590 Consistent with Cardiac Damage > OR = 0.600 Critical Value Not every elevated troponin is indicative of AL. These values should be used with clinical judgement in examining the patient's clinical picture for diagnosis. To establish a diagnosis of AL versus myocardial injury, there must be a demonstrated rise and/or fall in the troponin values, in addition to ischemic symptoms, EKG changes, new regional wall motion abnormality, and/or angiographical evidence. PLEASE NOTE: REFERENCE RANGES EDITED 18 Performed By: #### L501.4010, L501.5200 #### [facility] [address] [facility] [place], [address] MAGNESIUM Collected: 07/22/2018 Status: F Source: PEMAQUID 5:56 PM [facility] REPOSITORY Order Comment: 'TROP' Serial specimen #1, #2 or #3: 1 TYPE CODE TESTS RESULT OUT OF RANGE REFERENCE UNITS LAB L501.5200 1.6-2.6 mg/dL Low MG 1.5 Performed By: #### L501.4010, L501.5200 #### [facility] [address] [facility] [place], [address] HISTORY AND PHYSICAL Observed: 07/22/2018 Status: F Source: PEMAQUID EXAM 5:33 PM [facility] REPOSITORY [facility] Medical Records Department [address] [place] [address] History and Physical 07/22/18 1716 MR#: [id number] Acct: [id number] Name: SALEEM GRAY Rep #: [id number] : 1980 38 From: Yayo Mohamud MD PCP: Zeferino Leon MD Status: ADM CHASITY Y Location: [place] [address] Problem List (1) Near syncope Status: Acute (2) Left upper quadrant abdominal pain Status: Acute (3) Lumbosacral spondylosis Status: Chronic (4) Lumbar facet arthropathy Status: Chronic (5) Dysuria Status: Resolved (6) Urinary tract infection Status: Resolved (7) Segmental and somatic dysfunction of pelvic region Status: Chronic (8) Segmental and somatic dysfunction of thoracic region Status: Acute (9) Radiculopathy of lumbosacral region Status: Chronic (10) Disc displacement, lumbar Status: Chronic (11) Degeneration of intervertebral disc of lumbosacral region Status: Chronic History of Present Illness Date of Admission: 07/22/18 Chief Complaint: Dizzy and lightheaded today The patient is a 38 year old F with history of diabetes mellitus type 2 and migraine headache got dizzy, lightheaded that is started about an hour ago prior to coming to ER 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 She denies vertigo but felt like she might pass out. Patient also feeling off balance and says she might fall. In ED, she had negative orthostatics sign a negative Hallpike maneuver. She has diabetes mellitus and blood sugar is 99 on BMP. She is having menstrual periods but denies UTI symptoms. Today also she felt sharp left upper quadrant abdominal pain not at the time of feeling dizziness. She gets intermittently but denies any history of kidney stone. She denies any prior history of abdominal pain. Complaint of left-sided pressure but feels like breast soreness as she is in menstrual period. Her father had early AL and he of coronary artery disease [] Past Medical History Past Medical History (Chronic Problems): Chronic Problems (Last Reviewed 05/26/18 @ 16:28 by Samaria Ren) Lumbosacral spondylosis (Chronic) Lumbar facet arthropathy (Chronic) Segmental and somatic dysfunction of pelvic region (Chronic) Radiculopathy of lumbosacral region (Chronic) Disc displacement, lumbar (Chronic) Degeneration of intervertebral disc of lumbosacral region (Chronic) Medical History: Medical History (Last Reviewed 05/26/18 @ 16:28 by Samaria Ren) gall bladder removal Allergies No Known Allergies Allergy (Verified 05/26/18 16:28) Home Medications: Ambulatory Orders Medication Instructions Recorded Lorazepam [Ativan] 0.5 mg PO PRN PRN 10/27/13 Surgical History: Surgical History (Last Reviewed 05/26/18 @ 16:28 by Samaria Ren) H/O: Z98.891 Smoking Status: Never smoker - *Family History Paternal Family History: Family History (Last Reviewed 05/26/18 @ 16:28 by Samaria Ren) Father Diabetes History Items: Heart Disease Review of Systems Constitutional: Reports: Malaise, Weakness, Fatigue. Denies: Chills, Fever, Weight Change HEENT: Denies: Head Aches, Sinus Congestion, Sinus Drainage Cardiovascular: Reports: Chest Pressure, Light Headedness. Denies: Chest Pain, Palpitations Respiratory: Denies: Cough, Shortness of breath at rest, Sputum production Gastrointestinal: Denies: Abdominal Pain, Nausea, Vomiting Genitourinary: Denies: Dysuria Musculoskeletal: Denies: Joint Pain, Joint Tenderness Skin: Denies: Rash, Wounds Neurological: Reports: Incoordination. Denies: Focal weakness, Numbness, Tingling Psychiatric: Reports: Anxiety, Depression. Denies: Homicidal Ideations, Suicidal Ideations Hematologic/ Lymphatic: Denies: Easy Bruising, Easy Bleeding VTE Information - Inpt Only VTE Present on Admission: No VTE Mechan Device Prophylaxis: SCD's, None VTE Pharm Prophylaxis ordered?: Yes - Physical Exam General: Alert, Oriented x3, Cooperative HEENT: Atraumatic, PERRLA, EOMI, Normocephalic Neck: Supple, No JVD, Negative Carotid Bruits Lungs: Clear to auscultation, Normal air movement Cardiovascular: Regular rate, Normal S1, Normal S2, No murmurs Abdomen: Bowel Sounds Present, Soft, Non-Distended, Tender - Mild deep tenderness over left upper quadrant Extremities: Capillary Refill Less than 3 Seconds, Edema Skin: No rashes, No breakdown Musculoskeletal: No Tenderness to Palpation of Joints or Extremities, Arthritic Changes Neurological: Cranial nerves II-XII grossly intact Psych/Mental Status: Normal Affect, Appropriate Vital Signs Temp Pulse Resp BP Pulse Ox 98.1 F 62 18 148/81 H 97 07/22/18 13:41 07/22/18 15:53 07/22/18 13:41 07/22/18 15:53 07/22/18 13:41 Oxygen Delivery Method Room Air Weight: 280 lb Body Mass Index (BMI) 43.8 Finger Stick Blood Glucose 98 Laboratory Tests Past 24 Hrs WBC 7.7 RBC 4.18 L Hgb 13.0 Hct 38.3 MCV 91.6 MCH 31.1 MCHC 33.9 RDW 13.1 POC Glucose POC Glucose 98 Assessment/Plan All Active Problems (Last Reviewed 05/26/18 @ 16:28 by Samaria Ren) Near syncope (Acute) Left upper quadrant abdominal pain (Acute) Dysuria (Resolved) Urinary tract infection (Resolved) Segmental and somatic dysfunction of thoracic region (Acute) The patient is a 38 year old F with history of diabetes mellitus type 2 and migraine headache got dizzy, lightheaded that is started about an hour ago prior to coming to ER 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 She denies vertigo but felt like she might pass out. Patient also feeling off balance and says she might fall. In ED, she had negative orthostatics sign a negative Hallpike maneuver. She has diabetes mellitus and blood sugar is 99 on BMP. She is having menstrual periods but denies UTI symptoms. Today also she felt sharp left upper quadrant abdominal pain not at the time of feeling dizziness. She gets intermittently but denies any history of kidney stone. She denies any prior history of abdominal pain. Complaint of left-sided pressure but feels like breast soreness as she is in menstrual period. Her father had early AL and he of coronary artery disease 1. Dizziness and lightheadedness, off balance suggestive of near syncope, exact etiology unclear: She denies URI symptoms. She is being admitted to PCU for further workup. Cycle cardiac enzymes. MRI brain ordered to rule out posterior secretion CVA. 2D echo ordered. IV fluid normal saline at 100 mL/h. D-dimer is negative 2. Sharp left upper quadrant abdominal pain rule out nephrolithiasis/urinary tract stone: KUB x-ray ordered. Patient is pain-free now. UA is negative. RBC 0. 3. Diabetes mellitus type 2: Accu-Chek before meals and at bedtime daily on NovoLog sliding scale. At home she is on metformin and will hold. 4. Other comorbidities include migraine headache, lumbosacral arthritis with radiculopathy, lumbar disc displacement degeneration arthritis, obstructive sleep apnea and morbid obesity: Patient is CPAP at night and will continue it. All medication reconciliation done. Currently she denies headache. DVT prophylaxis: Moderate risk, on Lovenox 40 milligrams daily. This note was generated with [employer] dictation software. Every effort was made to ensure accuracy, however computerized process inspector mistakes may persist. Code Visit OBSV E AND M: 74299 Initial observation care L3 07/22/18 1733 <Electronically signed by Yayo Mohamud MD> Date Yayo Mohamud MD Cosigner Signature: Date (if applicable) CC: Yayo Mohamud MD; Zeferino Leon MD Signed BRAIN WITHOUT Observed: 07/22/2018 Status: F Source: [place] CONTRAST 5:26 PM [facility] REPOSITORY [facility] Imaging Services [address] [place] [address] Brain without Contrast MR#: [id number] Acct: [id number] Name: SALEEM GRAY Rep #: [id number] : 1980 F 38 From: Noe Michael MD PCP: Zeferino Leon MD Status: ADM CHASITY Study: Brain without Contrast Date of Exam: 07/22/18 Exam# [id number] Ordering Dr: Yayo Mohamud MD STUDY: MRI BRAIN WITHOUT CONTRAST REASON FOR EXAM: Female, 38 years old. Dizziness TECHNIQUE: Standardized multiplanar fat and water weighted pulse sequences were obtained. COMPARISON: CT of the brain on July 22, 2018 FINDINGS: Normal size of the ventricles and extra-axial spaces for the patient's age. Normal white matter tracts of the supratentorial brain. Normal bilateral basal ganglia. Normal thalami. There is no extra-axial fluid accumulation. Normal flow voids within the major intracranial circulation suggesting patency by spin echo criteria. Normal sella turcica, pituitary gland, infundibular stalk, optic chiasm and hypothalamus. Normal tectal plate and pineal gland. Normal midbrain, javid and medulla. Normal cerebellum. Normal basal cisterns. Normal bilateral temporal bones. Normal bilateral internal auditory canals. No demonstrated orbital abnormality, within the constraints of a routine brain study. Normal visualized paranasal sinuses. Normal calvarium and skull base. Normal visualized soft tissue structures. Normal visualized upper cervical spine. MRI/Brain without Contrast IMPRESSION: Normal unenhanced MRI of the brain. Electronically Signed: Noe Michael MD at 21:44 EDT , Service support , CC: Yayo Mohamud MD; Zeferino Leon MD Stator Tester: Signed ABDOMEN SINGLE VIEW Observed: 07/22/2018 Status: F Source: P[place]QUID 5:26 PM [facility] REPOSITORY [facility] Imaging Services [address] [place] [address] Abdomen Single View MR#: [id number] Acct: [id number] Name: SALEEM GRAY Rep #: [id number] : 1980 F 38 From: Raghav Shea MD PCP: Zeferino Leon MD Status: ADM CHASITY Study: Abdomen Single View Date of Exam: 07/22/18 Exam# [id number] Ordering Dr: Yayo Mohamud MD STUDY: X-RAY - ABDOMEN/PELVIS REASON FOR EXAM: Female, 38 years old. Left upper quadrant pain. TECHNIQUE: 3 frontal views of the abdomen. COMPARISON: None. FINDINGS: There is no bowel obstruction. There is air and stool to the level of the rectum. The patient is status post cholecystectomy. There is intrauterine device noted. The visualized osseous structures are within normal limits. RAD/Abdomen Single View IMPRESSION: No bowel obstruction. Electronically Signed: Raghav Shea, at 22:08 EDT Tel , Service support , CC: Yayo Mohamud MD; Zeferino Leon MD Stator Tester: Signed EMERGENCY DEPARTMENT Observed: 07/22/2018 Status: F Source: [place] SUMMARY 4:41 PM [facility] REPOSITORY [facility] Medical Records Department [address] [place] [address] Emergency Department Summary 07/22/18 1635 MR#: [id number] Acct: [id number] Name: SALEEM GRAY Rep #: [id number] : 1980 38 From: Mildred Sotomayor DO PCP: Zeferino Leon MD Status: REG ER - ER Visit Summary Date of Service: 07/22/18 Chief Complaint: [Dizziness] History of Present Illness: The patient is a 38 F [presents the emergency department complaint of dizziness that started an hour ago. 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 Patient states that she feels like she is in a haze. Patient also felt like she might pass out. She denied any tachycardia or chest pain. Patient did have a sharp pain earlier in the day in the left side of her chest. Patient also thought it was just maybe her breast soreness being that she is on her period. Patient has had some mild nausea. Patient complains of some urinary frequency. Patient recently diagnosed with diabetes mellitus and is on oral medications. Physical Examination: [HEENT-PERRLA, EOMI. Cranial nerves II through XII grossly intact. TMs clear. Mucous membranes moist. No adenopathy. Cardiovascular-regular rate and rhythm without murmur or ectopy Lungs-clear to auscultation, chest wall stable without crepitus or subcu emphysema Abdomen-normoactive bowel sounds, soft, nontender, no rebound or rigidity, no peritoneal signs. Neuro ozvt-prlaqe-dbcp and heel stokes testing within normal limits, negative Romberg, negative pronator, fundi benign. Negative Hallpike maneuver. Extremities-intact 4, normal range of motion, normal pulses, atraumatic] Test Results: [EKG obtained arrival shows sinus rhythm with a ventricular rate 61 bpm. CBC with differential is normal. Chemistries were normal. LFTs were unremarkable. Urinalysis was normal. HCG was negative. D-dimer was less than 0.27. CT scan of the brain without contrast peers normal on my interpretation but awaiting CT results from radiology.] Orthostatic vital signs were negative. Emergency Department Course and Treatment: [And received a liter normal same fluid bolus. Upon standing patient continues to complain of feeling off balance and feeling like she might fall.] Treatment Plan: [Admit for further workup and evaluation] Disposition: [Admit] Impression: [Dizziness-etiology uncertain] This note was generated with [employer] dictation software. It may contain incorrect words, spelling, and punctuation that were not noted in review of the chart prior to signing ED Disposition - Plan for ED Patient: Chief Complaint: Dizziness Referrals: Zeferino Leon MD [Primary Care Provider] - What to do if you have Problems For any increased pain, shortness of breath, bleeding, nausea or vomiting, chest pain, or any unexpected problems, contact your Primary Care Provider. Call [facility] ([phone]) or report to the closest Emergency Room. Call 911 if necessary. 07/22/18 1641 <Electronically signed by Mildred Sotomayor DO> Date Mildred Sotomayor DO Cosigner Signature (If Indicated): Date CC: Zeferino Leon MD BRAIN/HEAD WITHOUT Observed: 07/22/2018 Status: F Source: [place] CONTRAST 4:01 PM [facility] REPOSITORY [facility] Imaging Services [address] [place] [address] Brain/Head without Contrast MR#: [id number] Acct: [id number] Name: SALEEM GRAY Rep #: [id number] : 1980 F 38 From: Raghav Shea MD PCP: Zeferino Leon MD Status: REG ER Study: Brain/Head without Contrast Date of Exam: 07/22/18 Exam# [id number] Ordering Dr: Mildred Sotomayor DO STUDY: CT BRAIN WITHOUT CONTRAST REASON FOR EXAM: Female, 38 years old. Dizziness RADIATION DOSAGE (If Supplied By Facility): CTDIvol = ( 60.81 ) mGy, DLP = ( 1044.28 ) mGycm TECHNIQUE: Transaxial CT imaging of the brain was performed without administration of intravenous contrast material. Individualized dose optimization techniques were used for this CT. COMPARISON: 12/13/2017 FINDINGS: There is no acute bleed or infarct. There are normal white matter tracts. The ventricles are normal in configuration. There is no hydrocephalus. The visualized paranasal sinuses are clear. The mastoid air cells are well aerated. There is no skull fracture. CT/Brain/Head without Contrast IMPRESSION: No acute intracranial abnormality. Electronically Signed: Raghav Shea, at 16:55 EDT Tel , Service support , CC: Mildred Sotomayor DO; Zeferino Leon MD Stator Tester: Signed URINALYSIS, COMPLETE Collected: 07/22/2018 Status: F Source: [place] 3:30 PM [facility] REPOSITORY Order Comment: Order Date: 07/22/18 How was Urine Obtained? CLEAN CATCH TYPE CODE TESTS RESULT OUT OF RANGE REFERENCE UNITS LAB L400.3000 Yellow COLOR Normal Yellow LAB L400.3050 Clear Normal CLARITY Clear LAB L400.3200 Normal mg/dl Normal GLUCOSE, UR Normal LAB L400.3300 Negative mg/dL Normal BILIRUBIN URINE Negative LAB L400.3400 Negative mg/dl High 50 KETONE UR LAB L400.3465 1.002-1.030 Normal SP.GR. DIPSTX 1.015 LAB L400.3550 5.0 - 8.0 pH UR Normal 6.0 LAB L400.3600 Negative mg/dl High PROT 30 DIPSTX LAB L400.3700 Normal mg/dl Normal UROBILI Normal LAB L400.3750 Negative Normal NITRITE UR Negative LAB L400.3780 Negative /ul High OCCULT BLOOD-UR 250 LAB L400.3800 Negative /ul High LEUK 25 ESTERASE LAB L400.4050 0-5 /hpf WBC Normal 0-5 SEEN LAB L400.4100 0-5 /hpf 0 Normal RBC-UA SEEN LAB L400.4150 5-10 /hpf SQUAM Normal EPI 0-5 SEEN LAB L400.4300 None Seen /hpf 0 Normal BACTERIA SEEN LAB L400.4350 <or=2+ /hpf 0 Normal MUCUS, URINE SEEN Performed By: #### L400.0001 #### [facility] [address] [place], [address] CBC W/DIFF, AUTOMATED Collected: 07/22/2018 Status: F Source: [place] 2:15 PM [facility] REPOSITORY TYPE CODE TESTS RESULT OUT OF RANGE REFERENCE UNITS LAB L100.1000 4.4-11.0 K/mm3 Normal WBC 7.7 LAB L100.1200 4.2-5.4 M/mm3 Low RBC 4.18 LAB L100.1300 12.0-15.0 g/dl Normal HGB 13.0 LAB L100.1400 37-47 % Normal HCT 38.3 LAB L100.1500 81-99 fL Normal MCV 91.6 LAB L100.1600 27.0-32.0 pg Normal MCH 31.1 LAB L100.1700 32-36 g/gl Normal MCHC 33.9 LAB L100.1810 11.6-14.6 % Normal RDW CV 13.1 LAB L100.1820 35.1-43.9 fl Normal RDW SD 43.6 LAB L100.1900 150-450 K/mm3 Normal PLT 158 LAB L100.2000 6.2-12.0 fl Normal MPV 9.5 LAB L100.2100 47-70 % Normal NEUT% 60.3 LAB L100.2200 19-41 % Normal LY% 32.5 LAB L100.2300 0-10 % Normal MONO% 4.3 LAB L100.2400 0-5 % Normal EO% 2.1 LAB L100.2500 0-1 % Normal BASO% 0.3 LAB L100.2550 0.0-0.9 % Normal IM GRAN % 0.500 Result Comment: IG% - Immature Granulocytes (promyelocytes, myelocytes and metamyelocytes) > 1% indicates that a LEFT SHIFT is Present. LAB L100.2620 2.0-7.7 X10 3/uL Normal Absolute Neut 4.7 LAB L100.2720 0.83-4.51 X10 3/ul Normal Absolute Lymph 2.50 Performed By: #### L100.0100 #### [facility] [address] [facility] [place], [place], [address] D-DIMER QUANTITATIVE Collected: 07/22/2018 Status: F Source: [place] (DVT/PE) 2:15 PM [facility] REPOSITORY TYPE CODE TESTS RESULT OUT OF RANGE REFERENCE UNITS LAB L300.8000 0.27-0.49 FEU/ug/m Low D-DIMER < 0.27 QUANT Result Comment: NORMAL D-Dimer level (<0.50) indicates no DVT or PE. Performed By: #### L300.8000 #### [facility] [address] [facility] [place], [place], [address] COMPREHENSIVE METABOLIC Collected: 07/22/2018 Status: F Source: [place] PROFIL 2:15 PM [facility] REPOSITORY TYPE CODE TESTS RESULT OUT OF RANGE REFERENCE UNITS LAB L501.0100 74-106 mg/dL Normal GLU 99 Result Comment: Please note revised GLUCOSE reference range effective 2017. LAB L501.1000 7-18 mg/dL Normal BUN 13 LAB L501.1100 0.55-1.02 mg/dL Normal CREAT,SERUM 0.69 Result Comment: The validity of the calculated GFR AND GFRAA in patients over 70 years has not been determined. Clinical correlation is essential. LAB L501.1110 >60 mL/min Normal EST GFR 102 Result Comment: Non- GFR Calc LAB L501.1115 >60 mL/min Normal EST GFR - AA 123 Result Comment: GFR Calc LAB L501.1255 ml/min Normal Estimated CRCL 109.61 LAB L501.1300 10-20 RATIO BUN/CRE Normal 18.7 LAB L501.1500 6.4-8. g/dL 2 T PROT Normal 7.4 LAB L501.1800 3.2-5. g/dL 0 ALB Normal 3.6 LAB L501.1950 2.2-4. g/dL 2 GLOB Normal 3.8 LAB L501.2000 0.9-2. RATIO 4 A/G Normal 0.9 LAB L501.2200 8.5-10 mg/dL .1 CA Normal 8.6 LAB L501.4100 15-37 U/L AST Normal 37 LAB L501.4305 45-117 U/L ALK P Normal 82 LAB L501.4405 13-56 U/L High ALT 67 LAB L501.4600 0.20-1 mg/dL .00 T BILI Normal 0.50 LAB L501.5300 136-14 mmol/L 5 NA Normal 139 LAB L501.5600 3.5-5. mmol/L 1 K Normal 3.6 LAB L501.5900 98-107 mmol/L CL Normal 105 LAB L501.6100 21.0-3 mmol/L 2.0 CO2 Normal 23.0 LAB L501.6200 5-15 GAP Normal 11 Performed By: #### L500.4050, L501.2450 #### [facility] [address] [place], [place], [address] LIPASE Collected: 07/22/2018 Status: F Source: [place] 2:15 PM [facility] REPOSITORY TYPE CODE TESTS RESULT OUT OF RANGE REFERENCE UNITS LAB L501.2450 73-393 U/L Normal LIPASE 204 Performed By: #### L500.4050, L501.2450 #### [facility] [address] [place], [address] ,SERUM,HCG QUALI. Collected: Status: F Source: [place] 07/22/2018 2:15 PM [facility] REPOSITORY TYPE CODE TESTS RESULT OUT OF REFERENCE UNITS RANGE LAB L700.6700 =>Qualitative mIU/mL Normal HCG Qual < 1 triggr LAB L700.7000 0-9 Nonpreg Negative Normal HCGSQUAL NEGATIVE Performed By: #### L700.6800 #### [facility] [address] [place], [address] BEDSIDE GLUCOSE Collected: 07/22/2018 Status: F Source: [place] 1:51 PM [facility] REPOSITORY TYPE CODE TESTS RESULT OUT OF RANGE REFERENCE UNITS LAB L501.080 70-110 mg/dL Normal BEDSIDE GLU 98 Result Comment: MANAGEMENT OF PATIENT CARE PER NURSING PROTOCOL Performed By: #### L501.080 #### [facility] Point of Care [address] [place] [address] PROGRESS Observed: 07/21/2018 Status: COMPLETED Source: [place] 4:25 PM [facility] REPOSIT[facility] HNO ID: [id number] Author: Zeferino Leon Service: (none) Author Type: Physician Type: Progress Notes Filed: 07/21/2018 4:50 PM Note Text: Patient presents with: Diabetes HPI: Patient presents today for office visit for follow up. Recently had labs and found her sugar had a hb1c of 7.2. Ld was 95 Added metformin. No side effects. Discussed checking sugars. Discussed statin. Her cholesterol looks ok. She would like to watch. Used to be hot all the time. Is now cold frequently. Psych:dealing with grief issues. Feels paxil is working well. No side effects. Has been working on losing weight. We discussed bariatric referrals. Worried about her toe. Has a fungal infection on a toenail. No pain. No signs of infection. Has put athlete's foot creme. Some fatigue. Does not snore Wants to see a cloth sponger at hospital. Will give the ok. MEDICATIONS: Current Outpatient Prescriptions: erenumab-aooe (AIMOVIG AUTOINJECTOR) 70 mg/mL AutoInjector Inject 1 Dose subcutaneously once every month. metFORMIN ER (GLUCOPHAGE XR) 500 mg 24 hr tablet Take 1 tablet by mouth daily with breakfast. PARoxetine (PAXIL) 10 mg tablet Take 1 tablet by mouth once daily. tiZANidine (ZANAFLEX) 4 mg tablet Take 1 tablet by mouth every 8 hours as needed. albuterol HFA (VENTOLIN HFA) 90 mcg/actuation inhaler Inhale 2 Puffs as instructed every 4 hours as needed for Wheezing/Shortness of Breath. levonorgestrel (BELA) 14 mcg/24 hour (3 years) IUD IUD 1 Each by INTRAUTERINE route one time only. Bela: new one placed on 10/03/17 Limnjegp-Fk-Ksm-Fe-FA ( FORMULA) ORAL Tab Take 1 tablet by mouth once daily. No current facility-administered medications for this visit. ALLERGIES: ALLERGIES No Known Allergies PAST MEDICAL HISTORY Diagnosis Date - Acute cholecystitis Cholecystitis PAST SURGICAL HISTORY Procedure Laterality Date - DELIVERY ONLY 2005 , low cervical - INSERT INTRAUTERINE DEVICE 10/19/08 mirena - LAPAROSCOPIC CHOLEYCYSTECTOMY 2005 Cholecystectomy, lap (Rowena Monet) - REMOVE IUD 07/13/2010 FAMILY HISTORY Problem Relation Age of Onset - Heart Father AL - Heart Paternal Grandmother TRIPLE BYPASS SURGERY - Cancer Maternal Grandmother LUNG CANCER - Cancer Father PANCREATIC CANCER - Diabetes Maternal Grandfather - Diabetes Father - Alcohol/Drug Mother Social History Marital status: Single Spouse name: Years of education: 12 Number of children: 1 Occupational History Occupation Employer Comment [employer]* [employer] Student Social History Main Topics Smoking status: Never Smoker Smokeless tobacco: Never Used Alcohol use: No Drug use: No Sexual activity: No Other Topics Concern No BLOOD TRANSFUSIONS No CAFFEINE No OCCUPATIONAL EXPOSURE No HOBBY HAZARD No SLEEP CONCERN No STRESS CONCERN No WEIGHT CONCERN No DIET No BACK CARE No EXERCISE Yes Comment:DOESNT EXERCISE ROUTINELY BIKE HELMET No SEAT BELT No SELF EXAMS Yes Comment:DOESNT DO SBE Reviewed current medications, allergies, past medical history, surgical history, family history and social history today. REVIEW OF SYSTEMS All other reviewed and negative other than HPI. HEALTH MAINTENANCE: Reviewed health maintenance issues today and recommended the following in detail. DILATED RETINAL EXAM recommended annual DIABETIC FOOT EXAM due on 1992 ONE PNEUMOVAX PRIOR TO AGE 67 due on 1998 URINE ALBUMIN:CREATININE RATIO due on 08/22/2017 INFLUENZA(1) due on 07/05/2018 VITALS: BP 122/84 Pulse 84 Resp 16 Ht 170.2 cm (5' 7) Wt 127 kg (280 lb) BMI 43.85 kg/m? Last 4 Encounter Wt Readings: Date: Wt: 07/21/2018 127 kg (280 lb) 06/03/2018 130.6 kg (288 lb) 05/01/2018 132.5 kg (292 lb) 03/10/2018 133.8 kg (295 lb) PHYSICAL EXAMINATION: General appearance: Well appearing, alert, in no acute distress, well-hydrated, well nourished. Skin: Skin color, texture, turgor normal, no suspicious rashes or lesions Head: Normocephalic, no masses, lesions, tenderness or abnormalities Lungs: Lungs clear to auscultation. No wheezing, rhonchi, rales Heart: RRR without murmur, gallop, or rubs. No ectopy Abdomen: Normal abdominal exam, Abdomen soft, non-tender. Bowel sounds normal. No masses, organomegaly Extremities: No deformities, edema, skin discoloration, clubbing or cyanosis. Good capillary refill. Musculoskeletal: No joint swelling, deformity, or tenderness Feet:Shoes and socks removed, No deformities, ulcers, calluses, normal distal pulses, sensitive to 10 gm monofilament and nails notable for Crumbly, Deformed, Hypertrophic or Yellowish on left great toe. ASSESSMENT/PLAN: 1. Type 2 diabetes mellitus without complication, with long- term current use of insulin (HCC) - ICD9: 250.00, V58.67, ICD10: E11.9, Z79.4 (primary diagnosis) - check sugars. check urine microalbumin. Call sugars in one week. - see forensic science technician. - will call sugars - BLOOD-GLUCOSE METER KIT - BLOOD SUGAR DIAGNOSTIC STRIPS - LANCETS - COMPOUNDED PRESCRIPTION 2. Fatty liver - ICD9: 571.8, ICD10: K76.0 - continue weight loss 3. LETITIA (obstructive sleep apnea) - ICD9: 327.23, ICD10: G47.33 - continue bipap 4. Morbid obesity (HCC) - ICD9: 278.01, ICD10: E66.01 5. Anxiety - ICD9: 300.00, ICD10: F41.9 - continue meds. 6. Other fatigue - ICD9: 780.79, ICD10: R53.83 - check cbc, tsh - COMPOUNDED PRESCRIPTION 7. Onychomycosis - ICD9: 110.1, ICD10: B35.1 - use vicks or tea tree oil topically. Discussed care. Zeferino Leon MD Keep appt at end of AUG CNOV Observed: 07/21/2018 Status: COMPLETED Source: [place] 4:00 PM [facility] REPOSITORY Office Visit (FAMPWS) SALEEM GRAY ([id number]) 1980 F Date Time Provider Department 07/21/18 4:00 PM [facility] During your visit today, we recorded the following information about you: Pulse Respiration Blood pressure Weight 84/minute 16/minute 122/84 127 kg Height 1.702 m Juliana Barkley James 07/21/2018 4:09 PM Signed DM: Reports overall feeling well. Started taking Metformin 500 mg on 07/16/18. Medication side effects: none. Home sugar checks: not yet, but interested in starting to. Hypoglycemic spells: unsure. Watching diet: Pt has cut out sugars and extra carbs, trying to keep it to about 20 grams of carbs. Unexpected weight loss: No. Polyuria, polydipsia: No. Vision Changes: No. Foot lesions or numbness or pain: left big toe Patient c/o of feeling cold a lot. She has fatigue. Zeferino Leon MD 07/21/2018 4:50 PM Signed Patient presents with: Diabetes HPI: Patient presents today for office visit for follow up. Recently had labs and found her sugar had a hb1c of 7.2. Ld was 95 Added metformin. No side effects. Discussed checking sugars. Discussed statin. Her cholesterol looks ok. She would like to watch. Used to be hot all the time. Is now cold frequently. Psych:dealing with grief issues. Feels paxil is working well. No side effects. Has been working on losing weight. We discussed bariatric referrals. Worried about her toe. Has a fungal infection on a toenail. No pain. No signs of infection. Has put athlete's foot creme. Some fatigue. Does not snore Wants to see a cloth sponger at hospital. Will give the ok. MEDICATIONS: Current Outpatient Prescriptions: erenumab-aooe (AIMOVIG AUTOINJECTOR) 70 mg/mL AutoInjector Inject 1 Dose subcutaneously once every month. metFORMIN ER (GLUCOPHAGE XR) 500 mg 24 hr tablet Take 1 tablet by mouth daily with breakfast. PARoxetine (PAXIL) 10 mg tablet Take 1 tablet by mouth once daily. tiZANidine (ZANAFLEX) 4 mg tablet Take 1 tablet by mouth every 8 hours as needed. albuterol HFA (VENTOLIN HFA) 90 mcg/actuation inhaler Inhale 2 Puffs as instructed every 4 hours as needed for Wheezing/Shortness of Breath. levonorgestrel (BELA) 14 mcg/24 hour (3 years) IUD IUD 1 Each by INTRAUTERINE route one time only. Bela: new one placed on 10/03/17 Smbmrvef-Ea-Dwe-Fe-FA ( FORMULA) ORAL Tab Take 1 tablet by mouth once daily. No current facility-administered medications for this visit. ALLERGIES: ALLERGIES No Known Allergies PAST MEDICAL HISTORY Diagnosis Date - Acute cholecystitis Cholecystitis PAST SURGICAL HISTORY Procedure Laterality Date - DELIVERY ONLY 2005 , low cervical - INSERT INTRAUTERINE DEVICE 10/19/08 mirena - LAPAROSCOPIC CHOLEYCYSTECTOMY 2006 Cholecystectomy, lap (Rowena Monet) - REMOVE IUD 07/13/2010 FAMILY HISTORY Problem Relation Age of Onset - Heart Father AL - Heart Paternal Grandmother TRIPLE BYPASS SURGERY - Cancer Maternal Grandmother LUNG CANCER - Cancer Father PANCREATIC CANCER - Diabetes Maternal Grandfather - Diabetes Father - Alcohol/Drug Mother Social History Marital status: Single Spouse name: Years of education: 12 Number of children: 1 Occupational History Occupation Employer Comment [employer]* [employer] Student Social History Main Topics Smoking status: Never Smoker Smokeless tobacco: Never Used Alcohol use: No Drug use: No Sexual activity: No Other Topics Concern No BLOOD TRANSFUSIONS No CAFFEINE No OCCUPATIONAL EXPOSURE No HOBBY HAZARD No SLEEP CONCERN No STRESS CONCERN No WEIGHT CONCERN No DIET No BACK CARE No EXERCISE Yes Comment:DOESNT EXERCISE ROUTINELY BIKE HELMET No SEAT BELT No SELF EXAMS Yes Comment:DOESNT DO SBE Reviewed current medications, allergies, past medical history, surgical history, family history and social history today. REVIEW OF SYSTEMS All other reviewed and negative other than HPI. HEALTH MAINTENANCE: Reviewed health maintenance issues today and recommended the following in detail. DILATED RETINAL EXAM recommended annual DIABETIC FOOT EXAM due on 1992 ONE PNEUMOVAX PRIOR TO AGE 65 due on 1998 URINE ALBUMIN:CREATININE RATIO due on 08/22/2017 INFLUENZA(1) due on 07/05/2018 VITALS: BP 122/84 Pulse 84 Resp 16 Ht 170.2 cm (5' 7) Wt 127 kg (280 lb) BMI 43.85 kg/m? Last 4 Encounter Wt Readings: Date: Wt: 07/21/2018 127 kg (280 lb) 06/03/2018 130.6 kg (288 lb) 05/01/2018 132.5 kg (292 lb) 03/10/2018 133.8 kg (295 lb) PHYSICAL EXAMINATION: General appearance: Well appearing, alert, in no acute distress, well-hydrated, well nourished. Skin: Skin color, texture, turgor normal, no suspicious rashes or lesions Head: Normocephalic, no masses, lesions, tenderness or abnormalities Lungs: Lungs clear to auscultation. No wheezing, rhonchi, rales Heart: RRR without murmur, gallop, or rubs. No ectopy Abdomen: Normal abdominal exam, Abdomen soft, non-tender. Bowel sounds normal. No masses, organomegaly Extremities: No deformities, edema, skin discoloration, clubbing or cyanosis. Good capillary refill. Musculoskeletal: No joint swelling, deformity, or tenderness Feet:Shoes and socks removed, No deformities, ulcers, calluses, normal distal pulses, sensitive to 10 gm monofilament and nails notable for Crumbly, Deformed, Hypertrophic or Yellowish on left great toe. ASSESSMENT/PLAN: 1. Type 2 diabetes mellitus without complication, with long- term current use of insulin (HCC) - ICD9: 250.00, V58.67, ICD10: E11.9, Z79.4 (primary diagnosis) - check sugars. check urine microalbumin. Call sugars in one week. - see forensic science technician. - will call sugars - BLOOD-GLUCOSE METER KIT - BLOOD SUGAR DIAGNOSTIC STRIPS - LANCETS - COMPOUNDED PRESCRIPTION 2. Fatty liver - ICD9: 571.8, ICD10: K76.0 - continue weight loss 3. LETITIA (obstructive sleep apnea) - ICD9: 327.23, ICD10: G47.33 - continue bipap 4. Morbid obesity (HCC) - ICD9: 278.01, ICD10: E66.01 5. Anxiety - ICD9: 300.00, ICD10: F41.9 - continue meds. 6. Other fatigue - ICD9: 780.79, ICD10: R53.83 - check cbc, tsh - COMPOUNDED PRESCRIPTION 7. Onychomycosis - ICD9: 110.1, ICD10: B35.1 - use vicks or tea tree oil topically. Discussed care. Zeferino Leon MD Keep appt at end of AUG Zeferino Leon MD 07/21/2018 4:41 PM Signed Diabetes Mellitus: General Diet Guidelines 01/10 Higher than normal blood glucose (sugar) levels over time may cause serious health issues. What you eat and how much you eat can help you keep your blood glucose levels in goal range. The diabetic diet is a healthy diet which includes a variety of all food groups. Sugar-free or special foods for diabetes are not required. Some persons think that sugar is the main ingredient to monitor; carbohydrates are the main ingredient to monitor. Think of yourself as being on a carbohydrate budget. What are carbohydrates? The foods that have the biggest effect on your blood glucose levels are carbohydrates. Carbohydrates are digested by the body to form glucose or sugar, which the body uses for energy.Carbohydrates are found in three main food groups: starches, fruit, and dairy products. Examples of carbohydrates include breads, cereals, rice, macaroni products, starchy vegetables (potatoes, corn, peas, lentils, and beans), juice, fruit, milk, and yogurt. Other carbohydrates are sugars and sweets like cakes, pies, honey, syrups, molasses, jelly, gelatin, candy, and sweetened beverages, such as carbonated pop or lemonade. How do you keep blood glucose in target range? Step 1: TIMING. Eat within the first hour or two of waking and every 4 to 5 hours through the day. Avoid skipping meals. Try to follow the same meal schedule on weekends and weekdays. Try a schedule like this: 6:45 a.m.: Wake up 7:30 a.m.: Breakfast Noon: Lunch 3:00 p.m.: Snack 6:00 p.m.: Dinner 8:30: Snack Step 2: CONSISTENCY. Eat the same amount of food and carbohydrate in each meal and snack. Step 3: VARIETY. Eat a variety of foods daily. Your dietitian, the nutrition expert, will design a meal plan to meet your specific needs. Step 4: MODERATION. By using moderation, you can get the nutrients you need while reaching your goal of target blood glucose levels. Your dietitian can help make a plan that is right for you. And remember--DO NOT SKIP MEALS! FOODS GROUPS AND SERVING SIZES Starches Choose 4-6 servings daily. Choose whole grain, high-fiber foods when possible. 1 serving equals = ? cup of hot cereal; ? cup cold whole-grain cereal; 1 whole grain waffle or pancake (size of a CD); ? cup of mashed potato, corn, peas, or beans; 1 small baked potato; 1/3 cup rice or pasta; 1 slice of whole grain bread; 4-6 whole grain crackers; 3 cups of popcorn; 1 cup soup; ? whole grain hamburger bun, hot dog bun, or Martiniquais muffin; ? of a small bagel or tortilla shell; and 1 tablespoon of syrup. Fruit Choose 2-3 servings daily. 1 serving equals = 1 small fruit (4 ounces); ? cup unsweetened canned fruit; 17 grapes; 2 tablespoons raisins; 1? cup watermelon cubed; 1 cup melon; and ? cup dried fruit. Milk and yogurt Choose 2-3 servings daily 1 serving equals = 1 cup of skim or 1% milk; 6 ounces low- fat yogurt; ? cup low-fat or sugar free ice cream; and 1 cup sugar-free pudding. Non-starchy vegetables Choose 3-5 servings daily. 1 serving equals = 1 cup raw vegetables or ? cup cooked vegetables: green beans, beets, broccoli, cabbage, carrots, cauliflower, celery, cucumber, lettuce and other dark green leafy greens; mushrooms; okra; onions; pea pods; peppers; tomatoes; turnips; water chestnuts; and zucchini. Meat or meat substitutes Aim for 2-3 servings daily. 3 ounces of cooked meat (the size of a deck of cards) such as lean beef, chicken without skin, fish, castellon, pork loin, wild game and/or veal. 1 ounce of a meat substitute equals = 1 slice of low-fat cheese; 1 egg; 2 egg whites; ? cup egg beaters; ? cup 2% low-fat cottage cheese; and/or 1 tablespoon of peanut butter. Fat Choose 2-3 servings daily. 1 serving equals = 1 teaspoon butter, margarine, oil, or mayonnaise; 1 tablespoon salad dressing, nuts, seeds, reduced-fat mayonnaise or cream cheese; 2 tablespoons reduced fat salad dressing or sour cream. (Tip of thumb is a teaspoon; whole thumb is a tablespoon) SAMPLE MENU (approximately 1,600 calories) This sample menu is for example only. Men and Active Ladies may require a diet plan with more calories Breakfast ? cup unsweetened cereal with 1 cup low-fat milk 1 small banana OR 2 frozen whole grain waffles with 1 tablespoon syrup and 1 cup low-fat milk Lunch 1 cup low-sodium vegetable soup with 4-6 whole grain crackers 1 small orange OR [place] with turkey, lettuce, tomato, 1 tablespoon reduced fat mayonnaise on whole grain bread 1 cup cucumber slices with salsa 1 small apple Dinner 3 ounces baked pork loin 1 small baked potato with 2 tablespoons light sour cream 1 cup tossed salad with 2 tablespoons reduced fat salad dressing 1 cup cooked broccoli with spray butter 1 whole grain dinner roll with 1 teaspoon margarine 1 ? whole strawberries Water Snack ideas 3 cups unbuttered popcorn OR 1 cwlzc-iof-r-half Luis A crackers OR ? cup whole grain cereal with ? cup low-fat milk OR 1 cup light low-fat yogurt OR 1 cup raw vegetables with 2 tablespoons reduced fat salad dressing OR 17 grapes OR 1 slice of whole wheat bread with 1 tablespoon peanut butter If you do home glucose checks For non adults, general goals for glucose checks are 70-120 mg/dL (fasting or before a meal); Less than 140 mg/dL (two hours after starting a meal) 100-140 mg/dL (at bedtime) Please consult your health care provider to see if your goals for glucose are as noted above. These numbers can vary [id number]-niczwo. Other Tips 1. Seeing a registered dietitian to help you better understand your diet is highly recommended. Our office can help you with a referral if needed. 2. Avoid buying special foods, such as sugar-free products. Sugar-free does not mean carbohydrate-free. 3. Avoid (or limit) sugared drinks such as regular soda. The carbohydrate content is quite high. Since you are on a carbohydrate budget, this will throw you over budget rather quickly. Diet sodas usually contain little or no carbohydrates. 4. Limit your sweets and desserts to special times, birthdays, holidays, and special occassions. Again, these foods are high in carbohydrates and may send you over budget quickly. Your dietitian can further guide you on this topic. 5. A food diary is quite helpful to the dietitian and you can bring this along to your appointment. - Referring Provider: SELF [[id number]] Allergies As of Date: 07/21/2018 (No Known Allergies) Date Reviewed: 05/01/2018 Reviewed by: Jovana Hylton Roller Printer - Fully Assessed Reason for Visit: Diabetes [34] Primary Visit Diagnosis:Type 2 diabetes mellitus without complication, with long-term current use of insulin (HCC) [E11.9, Z79.4] Other Visit Diagnoses:Fatty liver [K76.0] LETITIA (obstructive sleep apnea) [G47.33] Morbid obesity (HCC) [E66.01] Anxiety [F41.9] Other fatigue [R53.83] Onychomycosis [B35.1] Order(s):Blood-Glucose Meter (BLOOD GLUCOSE MONITORING) monitoring kit1 Each as needed for up to 1 day.Disp: 1 EachRfl: 0 blood sugar diagnostic (BLOOD GLUCOSE TEST) test stripTest blood sugar(s) 1 times daily. Dx: Type 2 DM - Controlled E11.9 Insulin: YesDisp: 50 StripRfl: 11 Lancets lancetsTest blood sugar(s) 1 times daily. Dx: Type 2 DM - Controlled E11.9 Insulin: NoDisp: 100 EachRfl: 11 COMPOUNDED PRESCRIPTIONTsh, cbc, urine for microalbumin DX: DM. Cold intolerance, fatigue.Disp: 1 EachRfl: 0 Prescriptions as of 07/21/2018 Sig: ERENUMAB-AOOE 70 MG/ML SUBCUT* Inject 1 Dose subcutaneously * METFORMIN ER 500 MG TABLET,EX* Take 1 tablet by mouth daily * PAROXETINE 10 MG TABLET Take 1 tablet by mouth once d* TIZANIDINE 4 MG TABLET Take 1 tablet by mouth every * ALBUTEROL SULFATE HFA 90 MCG/* Inhale 2 Puffs as instructed * LEVONORGESTREL 14 MCG/24 HOUR* 1 Each by INTRAUTERINE route * * VITAMIN,CALCIUM,MINE* Take 1 tablet by mouth once d* BLOOD-GLUCOSE METER KIT 1 Each as needed for up to 1 * BLOOD SUGAR DIAGNOSTIC STRIPS Test blood sugar(s) 1 times d* LANCETS Test blood sugar(s) 1 times d* COMPOUNDED PRESCRIPTION Tsh, cbc, urine for microalbu* Problem List As Of Date 07/21/2018 Noted Resolved SUPERVIS NORMAL 1ST PREG [Z34.00] INVALID FOR*07/02/2006 TRANS HYPERTEN-ANTEPART [O13.9] INVALID FOR*07/02/2006 KERATOSIS PILARIS////SKIN ANOMALY NEC [Q82.8] INVALID FOR*01/23/2010 Other Acne [L70.8] INVALID FOR* FOLLICULITIS///HAIR DISEASES NEC [L73.8] INVALID FOR*01/23/2010 Lichenification and Lichen Simplex Chronicus [L*INVALID FOR*01/23/2010 DERMATOFIBROMA///BENIGN KAILEY SKIN ARM [D23.60] INVALID FOR*01/23/2010 Contact Dermatitis and Other Eczema, due to Uns*INVALID FOR*01/23/2010 SACROILIITIS [M46.1] INVALID FOR*01/23/2010 Routine general medical examination at a health*INVALID FOR*12/06/2012 Class: Chronic More... Routine gynecological examination [Z01.419] INVALID FOR*02/22/2014 Class: Chronic Morbid Obesity [E66.01] INVALID FOR* Lumbar Disc Disorder [M51.9] INVALID FOR* More... Routine general medical examination at a health*INVALID FOR*02/22/2014 Anxiety [F41.9] INVALID FOR* Type 2 diabetes mellitus without complication, *INVALID FOR* Fatty liver [K76.0] INVALID FOR* More... LETITIA (obstructive sleep apnea) [G47.33] INVALID FOR* More... Other instructions from your clinician: Diabetes Mellitus: General Diet Guidelines 01/10 Higher than normal blood glucose (sugar) levels over time may cause serious health issues. What you eat and how much you eat can help you keep your blood glucose levels in goal range. The diabetic diet is a healthy diet which includes a variety of all food groups. Sugar-free or special foods for diabetes are not required. Some persons think that sugar is the main ingredient to monitor; carbohydrates are the main ingredient to monitor. Think of yourself as being on a carbohydrate budget. What are carbohydrates? The foods that have the biggest effect on your blood glucose levels are carbohydrates. Carbohydrates are digested by the body to form glucose or sugar, which the body uses for energy.Carbohydrates are found in three main food groups: starches, fruit, and dairy products. Examples of carbohydrates include breads, cereals, rice, macaroni products, starchy vegetables (potatoes, corn, peas, lentils, and beans), juice, fruit, milk, and yogurt. Other carbohydrates are sugars and sweets like cakes, pies, honey, syrups, molasses, jelly, gelatin, candy, and sweetened beverages, such as carbonated pop or lemonade. How do you keep blood glucose in target range? Step 1: TIMING. Eat within the first hour or two of waking and every 4 to 5 hours through the day. Avoid skipping meals. Try to follow the same meal schedule on weekends and weekdays. Try a schedule like this: 6:45 a.m.: Wake up 7:30 a.m.: Breakfast Noon: Lunch 3:00 p.m.: Snack 6:00 p.m.: Dinner 8:30: Snack Step 2: CONSISTENCY. Eat the same amount of food and carbohydrate in each meal and snack. Step 3: VARIETY. Eat a variety of foods daily. Your dietitian, the nutrition expert, will design a meal plan to meet your specific needs. Step 4: MODERATION. By using moderation, you can get the nutrients you need while reaching your goal of target blood glucose levels. Your dietitian can help make a plan that is right for you. And remember--DO NOT SKIP MEALS! FOODS GROUPS AND SERVING SIZES Starches Choose 4-6 servings daily. Choose whole grain, high-fiber foods when possible. 1 serving equals = ? cup of hot cereal; ? cup cold whole- grain cereal; 1 whole grain waffle or pancake (size of a CD); ? cup of mashed potato, corn, peas, or beans; 1 small baked potato; 1/3 cup rice or pasta; 1 slice of whole grain bread; 4- 6 whole grain crackers; 3 cups of popcorn; 1 cup soup; ? whole grain hamburger bun, hot dog bun, or Martiniquais muffin; ? of a small bagel or tortilla shell; and 1 tablespoon of syrup. Fruit Choose 2-3 servings daily. 1 serving equals = 1 small fruit (4 ounces); ? cup unsweetened canned fruit; 17 grapes; 2 tablespoons raisins; 1? cup watermelon cubed; 1 cup melon; and ? cup dried fruit. Milk and yogurt Choose 2-3 servings daily 1 serving equals = 1 cup of skim or 1% milk; 6 ounces low-fat yogurt; ? cup low-fat or sugar free ice cream; and 1 cup sugar-free pudding. Non-starchy vegetables Choose 3-5 servings daily. 1 serving equals = 1 cup raw vegetables or ? cup cooked vegetables: green beans, beets, broccoli, cabbage, carrots, cauliflower, celery, cucumber, lettuce and other dark green leafy greens; mushrooms; okra; onions; pea pods; peppers; tomatoes; turnips; water chestnuts; and zucchini. Meat or meat substitutes Aim for 2-3 servings daily. 3 ounces of cooked meat (the size of a deck of cards) such as lean beef, chicken without skin, fish, cast[place], pork loin, wild game and/or veal. 1 ounce of a meat substitute equals = 1 slice of low-fat cheese; 1 egg; 2 egg whites; ? cup egg beaters; ? cup 2% low-fat cottage cheese; and/or 1 tablespoon of peanut butter. Fat Choose 2-3 servings daily. 1 serving equals = 1 teaspoon butter, margarine, oil, or mayonnaise; 1 tablespoon salad dressing, nuts, seeds, reduced-fat mayonnaise or cream cheese; 2 tablespoons reduced fat salad dressing or sour cream. (Tip of thumb is a teaspoon; whole thumb is a tablespoon) SAMPLE MENU (approximately 1,600 calories) This sample menu is for example only. Men and Active Ladies may require a diet plan with more calories Breakfast ? cup unsweetened cereal with 1 cup low-fat milk 1 small banana OR 2 frozen whole grain waffles with 1 tablespoon syrup and 1 cup low-fat milk Lunch 1 cup low-sodium vegetable soup with 4-6 whole grain crackers 1 small orange OR [place] with turkey, lettuce, tomato, 1 tablespoon reduced fat mayonnaise on whole grain bread 1 cup cucumber slices with salsa 1 small apple Dinner 3 ounces baked pork loin 1 small baked potato with 2 tablespoons light sour cream 1 cup tossed salad with 2 tablespoons reduced fat salad dressing 1 cup cooked broccoli with spray butter 1 whole grain dinner roll with 1 teaspoon margarine 1 ? whole strawberries Water Snack ideas 3 cups unbuttered popcorn OR 1 yybyt-jcx-m-half Luis A crackers OR ? cup whole grain cereal with ? cup low-fat milk OR 1 cup light low-fat yogurt OR 1 cup raw vegetables with 2 tablespoons reduced fat salad dressing OR 17 grapes OR 1 slice of whole wheat bread with 1 tablespoon peanut butter If you do home glucose checks For non adults, general goals for glucose checks are 70-120 mg/dL (fasting or before a meal); Less than 140 mg/dL (two hours after starting a meal) 100-140 mg/dL (at bedtime) Please consult your health care provider to see if your goals for glucose are as noted above. These numbers can vary mfjpuj-jw-oilpbe. Other Tips 1. Seeing a registered dietitian to help you better understand your diet is highly recommended. Our office can help you with a referral if needed. 2. Avoid buying special foods, such as sugar-free products. Sugar-free does not mean carbohydrate-free. 3. Avoid (or limit) sugared drinks such as regular soda. The carbohydrate content is quite high. Since you are on a carbohydrate budget, this will throw you over budget rather quickly. Diet sodas usually contain little or no carbohydrates. 4. Limit your sweets and desserts to special times, birthdays, holidays, and special occassions. Again, these foods are high in carbohydrates and may send you over budget quickly. Your dietitian can further guide you on this topic. 5. A food diary is quite helpful to the dietitian and you can bring this along to your appointment. Visit Notes: >> Juliana Barkley Ma Mon Jul 21, 2018 3:50 PM Status: Signed DM: Reports overall feeling well. Started taking Metformin 500 mg on 07/16/18. Medication side effects: none. Home sugar checks: not yet, but interested in starting to. Hypoglycemic spells: unsure. Watching diet: Pt has cut out sugars and extra carbs, trying to keep it to about 20 grams of carbs. Unexpected weight loss: No. Polyuria, polydipsia: No. Vision Changes: No. Foot lesions or numbness or pain: left big toe Patient c/o of feeling cold a lot. She has fatigue. Prescriptions ordered this encounter Disp Refills Start End BLOOD-GLUCOSE METER KIT 1 Ea* 0 07/21/2018 07/22/2018 Route: Misc Si Each as needed for up to 1 day. BLOOD SUGAR DIAGNOSTIC STRIPS 50 S* 11 07/21/2018 Sig: Test blood sugar(s) 1 times daily. Dx: Type 2 DM - Controlled E11.9 Insulin: Yes LANCETS 100 * 11 07/21/2018 Sig: Test blood sugar(s) 1 times daily. Dx: Type 2 DM - Controlled E11.9 Insulin: No COMPOUNDED PRESCRIPTION 1 Ea* 0 07/21/2018 Class: Print RX Sig: Tsh, cbc, urine for microalbumin DX: DM. Cold intolerance, fatigue. Medications Discontinued During This Encounter meloxicam (MOBIC) 15 mg tablet 20 t* 0 04/11/2018 07/21/2018 Route: ORAL Sig: Take 1 tablet by mouth once daily. With food. Disc: Course of therapy completed busPIRone (BUSPAR) 5 mg tablet 90 t* 2 03/10/2018 07/21/2018 Route: ORAL Sig: Take 1 tablet by mouth three times daily. Disc: Changing Therapy/Dosage Form gabapentin (NEURONTIN) 300 mg capsule 07/21/2018 Class: Historical Med Route: ORAL Sig: Take 300 mg by mouth daily at bedtime. Disc: Discontinued by Patient Follow-up and Disposition History Recorded Encounter Status:Closed by ZEFERINO LEON MD on 07/21/18 LIVER PROFILE Collected: 07/15/2018 Status: F Source: PEMAQUID 8:53 AM [facility] REPOSITORY TYPE CODE TESTS RESULT OUT OF RANGE REFERENCE UNITS LAB L501.1500 6.4-8.2 g/dL Normal T PROT 7.8 LAB L501.1800 3.2-5.0 g/dL Normal ALB 3.9 LAB L501.1950 2.2-4.2 g/dL Normal GLOB 3.9 LAB L501.4100 15-37 U/L High AST 50 LAB L501.4305 45-117 U/L Normal ALK P 87 LAB L501.4405 13-56 U/L High ALT 85 LAB L501.4600 0.20-1.00 mg/dL Normal T BILI 0.60 LAB L501.4700 0.00-0.30 mg/dL Normal D BILI 0.16 Performed By: #### L500.3400 #### [facility] [address] [place], [place], [address] HEMOGLOBIN A1C Collected: 07/15/2018 Status: F Source: [place] 8:53 AM [facility] REPOSITORY TYPE CODE TESTS RESULT OUT OF RANGE REFERENCE UNITS LAB L501.9985 4.2-6.3 % High HGB A1C 7.2 Performed By: #### L501.9985 #### [facility] [address] [place], [place], [id number] HEPATITIS ABC PROFILE Collected: 07/15/2018 Status: F Source: [place] 8:53 AM [facility] REPOSITORY TYPE CODE TESTS RESULT OUT OF RANGE REFERENCE UNITS LAB L3100.0200 Negative Normal HEP A Negative IgM 6734 LAB L3100.0300 Negative Normal HEP A Negative AB,T.6726 LAB L3100.0400 Negative Normal HB Negative SURF AG LAB L3100.0440 Negative Normal HB Negative CORE [id number] LAB L3100.0460 Negative Normal HEP B Negative CORE,TOT LAB L3100.0510 . Normal Hep B Reactive Elio AB Result Comment: Non Reactive: Inconsistent with immunity, less than 10 mIU/mL Reactive: Consistent with immunity, greater than 9.9 mIU/mL LAB L3100.0750 0.0-0.9 s/co ratio Normal HCV Ab <0.1 LAB L3100.0765 . Normal COMMENT Comment Result Comment: Non reactive HCV antibody screen is consistent with no HCV infection, unless recent infection is suspected or other evidence exists to indicate HCV infection. Performed By: #### L3000.0700, L7000.7000 #### [facility] (refer to report for specific site) refer to report for address and phone number HEPATITIS C,RNA PCR Collected: 07/15/2018 Status: F Source: [place] VIRAL LOAD 8:53 AM [facility] REPOSITORY TYPE CODE TESTS RESULT OUT OF RANGE REFERENCE UNITS LAB L7000.7100 . IU/mL HCV Normal HCV Not Detected QT PCR LAB L7000.7350 . Test Normal HCV not performed log 10 LAB L7000.7500 . Normal TEST Comment INFO: Result Comment: The quantitative range of this assay is 15 IU/mL to 100 million IU/mL. Performed at: [facility] [id number] Director Voice: José Antonio Aldana PhD, Phone: [phone] Performed at: [facility] [address] [id number] Director Voice: Zeferino Jovel MD, Phone: [phone] Performed By: #### L3000.0700, L7000.7000 #### [facility] (refer to report for specific site) refer to report for address and phone number URINALYSIS, EMPLOYEE Collected: 07/04/2018 Status: F Source: PEMAQUID 7:06 AM [facility] REPOSITORY TYPE CODE TESTS RESULT OUT OF RANGE REFERENCE UNITS LAB L400.3000 Yellow COLOR Normal Yellow LAB L400.3050 Clear Normal CLARITY Sl. Cloudy LAB L400.3200 Normal mg/dl High GLUCOSE, UR 1000 LAB L400.3300 Negative mg/dL Normal BILIRUBIN URINE Negative LAB L400.3400 Negative mg/dl High 5 KETONE UR LAB L400.3465 1.002-1.030 Normal SP.GR. DIPSTX 1.025 LAB L400.3550 5.0 - 8.0 pH UR Normal 5.0 LAB L400.3600 Negative mg/dl High PROT 30 DIPSTX LAB L400.3700 Normal mg/dl Normal UROBILI Normal LAB L400.3750 Negative High NITRITE UR Positive LAB L400.3780 Negative /ul High 50 OCCULT BLOOD-UR LAB L400.3800 Negative /ul High LEUK ESTERASE 100 Performed By: #### L400.0100 #### [facility] [address] [place], [address] CBC, EMPLOYEE Collected: 07/04/2018 Status: C Source: PEMAQUID 7:06 AM [facility] REPOSITORY TYPE CODE TESTS RESULT OUT OF RANGE REFERENCE UNITS LAB L100.1000 4.4-11.0 K/mm3 Normal WBC 7.5 LAB L100.1200 4.2-5.4 M/mm3 Normal RBC 4.35 LAB L100.1300 12.0-15.0 g/dl Normal HGB 13.8 LAB L100.1400 37-47 % Normal HCT 40.8 LAB L100.1500 81-99 fL Normal MCV 93.8 LAB L100.1600 27.0-32.0 pg Normal MCH 31.7 LAB L100.1700 32-36 g/gl Normal MCHC 33.8 LAB L100.1810 11.6-14.6 % Normal RDW CV 13.3 LAB L100.1820 35.1-43.9 fl High RDW SD 44.0 LAB L100.1900 150-450 K/mm3 Normal PLT 180 LAB L100.2000 6.2-12.0 fl Normal MPV 10.3 LAB L100.2110 47-70 % Normal NEUT% 59.8 LAB L100.2210 19-41 % Normal LY% 29.8 LAB L100.2310 0-10 % Normal MONO% 5.1 LAB L100.2410 0-5 % Normal EO% 2.8 LAB L100.2510 0-1 % Normal BASO% 0.5 LAB L100.2620 2.0-7.7 X10 3/uL Normal Absolute Neut 4.5 LAB L100.2720 0.83-4.51 X10 3/ul Normal Absolute Lymph 2.22 LAB L100.9900 Normal PATH REV Reviewed Result Comment: Clinical correlation suggested. Garth Arango D.O. 07/04/18 AMENDED REPORT 07/04/18 1235 PATH REV previously reported as: March Performed By: #### L100.0200 #### [facility] [place], [address] EMPLOYEE PROFILE Collected: 07/04/2018 Status: F Source: PEMAQUID 7:06 AM [facility] REPOSITORY TYPE CODE TESTS RESULT OUT OF RANGE REFERENCE UNITS LAB L501.0100 74-106 mg/dL High GLU 269 Result Comment: Glucose result greater than or equal to 200 mg/dL suggests DIABETES MELLITUS per A.D.A. criteria. Please note revised GLUCOSE reference range effective 2017. LAB L501.1000 7-18 mg/dL Normal BUN 8 LAB L501.1100 0.55-1.02 mg/dL Normal CREAT,SERUM 0.61 Result Comment: The validity of the calculated GFR AND GFRAA in patients over 70 years has not been determined. Clinical correlation is essential. LAB L501.1110 >60 mL/min Normal EST GFR 118 Result Comment: Non- GFR Calc LAB L501.1115 >60 mL/min Normal EST GFR - AA 143 Result Comment: GFR Calc LAB L501.1300 10-20 RATIO Normal BUN/CRE 13.1 LAB L501.1400 2.6-6.0 mg/dL Normal URIC 5.3 Result Comment: The drugs N-Acetylcysteine and Metamizole may falsely depress this assay. LAB L501.1500 6.4-8.2 g/dL Normal T PROT 7.2 LAB L501.1800 3.2-5.0 g/dL Normal ALB 3.5 LAB L501.1950 2.2-4.2 g/dL Normal GLOB 3.7 LAB L501.2000 0.9-2.4 RATIO Normal A/G 0.9 LAB L501.2200 8.5-10.1 mg/dL Normal CA 8.5 LAB L501.2300 2.5-4.9 mg/dL Normal PHOS 3.1 LAB L501.4100 15-37 U/L High AST 78 LAB L501.4305 45-117 U/L Normal ALK P 100 LAB L501.4405 13-56 U/L High ALT 122 LAB L501.4600 0.20-1.00 mg/dL Normal T BILI 0.80 LAB L501.4700 0.00-0.30 mg/dL Normal D BILI 0.18 LAB L501.4900 200 mg/dL Normal CHOL 179 Result Comment: <200 mg/dL Desirable 200-240 mg/dL Borderline >240 mg/dL High Risk LAB L501.5000 mg/dL High TRIG 281 Result Comment: The drugs N-Acetylcysteine and Metamizole may falsely depress this assay. Serum Triglycerides Reference Interval Normal <150 mg/dL Borderline high 150 - 199 mg/dL High 200 - 499 mg/dL Very High > or = 500 mg/dL LAB L501.5300 136-145 mmol/L Normal NA 141 LAB L501.5600 3.5-5.1 mmol/L Normal K 3.8 LAB L501.5900 98-107 mmol/L Normal CL 102 LAB L501.6100 21.0-32.0 mmol/L Normal CO2 27.0 LAB L501.6200 5-15 Normal GAP 12 LAB L501.6400 mg/dL Low HDL 28 Result Comment: The drugs N-Acetylcysteine and Metamizole may falsely depress this assay. Reference Range HDL <40 mg/dL Low HDL Cholesterol HDL >or= 60 mg/dL High HDL Cholesterol LAB L501.6475 Normal CHOL:HDL 6.40 LAB L501.6500 0-130 mg/dL Normal LDL 95 LAB L501.6600 5-40 mg/dL High VLDL 56 LAB L504.2610 84-246 U/L Normal LDH 214 Performed By: #### L500.2900 #### [facility] [address] [place], [address] NICOTINE URINE DRUG Collected: 07/04/2018 Status: F Source: [place] SCREEN 7:06 AM [facility] REPOSITORY TYPE CODE TESTS RESULT OUT OF RANGE REFERENCE UNITS LAB L505.6250 TO BE Normal CONFIRMED Result Comment: CONFIRMATORY TESTING FOR ALL POSITIVE URINE DRUG SCREEN RESULTS WILL ONLY BE SENT OUT UPON PHYSICIAN ORDER. The results of Urine Drug Screen methods provide only preliminary analytical test results. A more specific alternate chemical method must be used in order to obtain a confirmed analytical result. Gas chromatography/mass spectrometery (GC/MS) is the preferred confirmatory method. Clinical consideration and professional judgement should be applied to any drug of abuse test result, particularly when preliminary positive results are used. LAB L505.6270 <200 ng/mL Normal COT DRG Negative SCREEN Result Comment: Cotinine is the first-stage metabolite of Nicotine. Performed By: #### L505.6240 #### [facility] [address] [place], [place], [address] URGENT CARE VISIT Observed: 06/09/2018 Status: F Source: [place] REPORT 7:58 AM [facility] REPOSITORY [facility] [address] [place] [address] [address] [place] [address] OFFICE VISIT Date of Service: 05/26/18 MR#: [id number] Acct: [id number] Name: SALEEM GRAY Rep #: [id number] : 1980 Provider: Santana IRENE Age/Sex: 37/F Location: [facility] [facility] Status: Signed Intake Vital Signs05/26/18 Height 5 ft 7 in Intake Visit Reasons: Urinary tract infection Chief Complaint: L sided low back pain Allergies No Known Allergies Allergy (Verified 05/26/18 16:28) Medications Lorazepam [Ativan] 0.5 mg PO PRN PRN 10/27/13 [History Confirmed 05/26/18] Albuterol Inhaler [Ventolin Hfa (SP)] 1 - 2 puff INHALATION Q6H PRN PRN 10/27/15 [History Confirmed 05/26/18] Tizanidine HCl [Zanaflex] 4 mg PO PRN PRN 04/29/17 [History Confirmed 05/26/18] Topiramate [Trokendi Xr] 200 mg PO DAILY 12/05/17 [History Confirmed 05/26/18] gabapentin 300 mg capsule 300 mg PO BIDCM #60 cap 12/30/17 [Rx Confirmed 05/26/18] Naproxen [Naprosyn] 500 mg PO BID PRN #20 tab 03/09/18 [Rx Confirmed 05/26/18] PFSH Medical History gall bladder removal (Acute) Surgical History H/O: (Acute) Family History Father Diabetes Social History Smoking Status: Never smoker alcohol intake: never substance use type: does not use caffeine: Yes what type of physical activity do you participate in: walking frequency: daily seatbelt use: always do you feel safe at home: Yes HPI HPI Chief Complaint: L sided low back pain Details: SALEEM GRAY, is a 37 F who presents to the office today for complaint of 3 weeks of increased urinary frequency as well as left-sided back pain. Patient does report a history of UTIs with similar type symptoms. She reports taking Azo for the last 3 weeks with no results. She denies hematuria, dysuria or bowel/bladder incontinence. She has had no abdominal pain, pelvic pain or fever, chills, sweats. No vomiting or diarrhea. No other associated symptoms or alleviating/aggravating factors. ROS Const Constitutional: No body ache, chills or fever(s) Resp Respiratory: No shortness of breath Cardio Cardiology: No lightheadedness, palpitations or irregular heart rhythm Gastro GI: No abdominal pain Genitourinary-Female: Positive for urinary frequency; no burning urination, painful urination, pelvic pain, painful intercourse or blood in urine Neuro Neurology: No confusion or behavioral changes Psych Psychiatric: No confusion, No behavioral changes Exam Const General: cooperative, healthy appearing Resp Effort AND Inspection: normal respiratory effort Auscultation: Bilateral: Clear to Auscultation Cardio Rate: regular rate Rhythm: regular rhythm GI Auscultation: normal bowel sounds General: No CVA tenderness, bimanual renal exam normal bilaterally Psych Appearance: grossly normal Mental Status: mental status grossly normal Results [facility] Office Urine Color Yellow Last Edit by Samaria Ren on 05/26/18 16:40 Office Urine Clarity Clear Last Edit by Samaria Ren on 05/26/18 16:40 [facility] Office , Urine Negative Last Edit by Samaria Ren on 05/26/18 16:40 Assessment AND Plan 1. Dysuria R30.0 Status Acute Plan - TETO Moore Dysuria likely not due to a UTI as the UA is negative for everything except for protein. Patient has been advised to follow-up with urology. Patient advised to follow-up with her PCP in 5-7 days if no better or sooner if worse. Advised of potential red flags and when appropriate report to the ED. Patient verbalized understanding of all the above. Orders Referrals: Plan Detail Other Orders Orders: Goals Decrease pain and inflammation Barriers Obesity Previous disc injury Coding Level of Care Code Off vis,new,level 3 Diagnoses Dysuria R30.0 06/09/18 0758 <Electronically signed by Santana IRENE> Date Santana IRENE 06/02/18 1704<Electronically signed by Raghav IRENE> Cosigner Signature: Date (if applicable) Raghav Kern CC: PROGRESS Observed: 06/03/2018 Status: COMPLETED Source: [place] 1:40 PM [facility] O ID: [id number] Author: Krystle Stovall) [place] Service: (none) Author Type: Physician Message Clerk Type: Progress Notes Filed: 06/03/2018 2:42 PM Note Text: 37 year old female with c/o here for follow on Buspar for anxiety. Was trying as needed. Tried prn use, didn't help much. Has been taking three times a day with out benefit over last month wihtout any effect. Father became ill in April, was in ECF and over last several months. Very close. Grieving which has aggravated anxiety, panic attacks. Hx costochondritis. Has been having chest pressure with lifting. Not taking meloxicam. Not trouble with breathing. In pain management with Dr. Mccray. Hasn't needed tramadol lately. Also nearly done taking gabapentin. Hx panic attacks . Has had some mild panic sx with breathing. Crying a lot. Snappy. Last cortisone with similar reaction with hives and agitation. Seeing Dr. Mccray for pain management. Feels pain is improving. Disc pain much better. Hip hurts a little. Seeing chiropractor pema is working on left hip. Left arm and leg numbness is almost completely gone. Feels she can go off gabapentin. HISTORIES FAMILY HISTORY Problem Relation Age of Onset - Heart Father AL - Heart Paternal Grandmother TRIPLE BYPASS SURGERY - Cancer Maternal Grandmother LUNG CANCER - Cancer Father PANCREATIC CANCER - Diabetes Maternal Grandfather - Diabetes Father - Alcohol/Drug Mother PAST MEDICAL HISTORY Diagnosis Date - Acute cholecystitis Cholecystitis PAST SURGICAL HISTORY Procedure Laterality Date - DELIVERY ONLY 2005 , low cervical - INSERT INTRAUTERINE DEVICE 10/19/08 mirena - LAPAROSCOPIC CHOLEYCYSTECTOMY 2005 Cholecystectomy, lap (Rowena Monet) - REMOVE IUD 07/13/2010 Social History Marital status: Single Spouse name: Years of education: 12 Number of children: 1 Occupational History Occupation Employer Comment [employer] and [employer]* [employer] Student Social History Main Topics Smoking status: Never Smoker Smokeless tobacco: Never Used Alcohol use: No Drug use: No Sexual activity: No Other Topics Concern No BLOOD TRANSFUSIONS No CAFFEINE No OCCUPATIONAL EXPOSURE No HOBBY HAZARD No SLEEP CONCERN No STRESS CONCERN No WEIGHT CONCERN No DIET No BACK CARE No EXERCISE Yes Comment:DOESNT EXERCISE ROUTINELY BIKE HELMET No SEAT BELT No SELF EXAMS Yes Comment:DOESNT DO SBE ACTIVE PROBLEM LIST Other Acne Morbid Obesity (Hcc) Lumbar Disc Disorder Anxiety Current Outpatient Prescriptions: tiZANidine (ZANAFLEX) 4 mg tablet Take 1 tablet by mouth every 8 hours as needed. Disp: 20 tablet Rfl: 1 meloxicam (MOBIC) 15 mg tablet Take 1 tablet by mouth once daily. With food. Disp: 20 tablet Rfl: 0 busPIRone (BUSPAR) 5 mg tablet Take 1 tablet by mouth three times daily. Disp: 90 tablet Rfl: 2 albuterol HFA (VENTOLIN HFA) 90 mcg/actuation inhaler Inhale 2 Puffs as instructed every 4 hours as needed for Wheezing/Shortness of Breath. Disp: 1 Inhaler Rfl: 5 gabapentin (NEURONTIN) 300 mg capsule Take 300 mg by mouth daily at bedtime. Disp: Rfl: levonorgestrel (BELA) 14 mcg/24 hour (3 years) IUD IUD 1 Each by INTRAUTERINE route one time only. Bela: new one placed on 10/03/17 Disp: Rfl: 0 Qekbjagl-Ze-Jza-Fe-FA ( FORMULA) ORAL Tab Take 1 tablet by mouth once daily. Disp: Rfl: 0 No current facility-administered medications for this visit. There are no preventive care reminders to display for this patient. EXAM: BP 158/110 Pulse 76 Temp 36.9 ?C (98.5 ?F) (Tympanic) Wt 130.6 kg (288 lb) LMP 05/29/2018 (Approximate) BMI 45.11 kg/m? Pleasant morbidly obese woman in no acute distress. Alert and oriented all spheres. Normal affect and cognition. Speech normal. No deficits to learning or comprehension. Skin warm, dry, pink to lips and nailbeds. Normal turgor. Respirations regular and unlabored. Extrem: no clubbing, cyanosis, edema. Extremities are warm and pink with prompt capillary refill. ASSESSMENT/PLAN: 1. Grief - ICD9: 309.0, ICD10: F43.21 (primary diagnosis) SSRI therapy reviewed with administration, expectations, side effects, 6-24 months recommended if beneficial, tapered discontinuation. Discussed counseling as alternative or adjunct. Discussed lorazepam: limit to sparing use. Not to mix with tramadol and gabapentin - PAROXETINE 10 MG TABLET - LORAZEPAM 0.5 MG TABLET 2. Anxiety and depression - ICD9: 300.00, 311, ICD10: F41.9, F32.9 As above - PAROXETINE 10 MG TABLET - LORAZEPAM 0.5 MG TABLET F/u in 4 weeks Krystle Medrano PA-C CNOV Observed: 06/03/2018 Status: COMPLETED Source: [place] 1:20 PM [facility] REPOSITORY Office Visit (FAMPWS) SALEEM GRAY ([id number]) 1980 F Date Time Provider Department 06/03/18 1:20 PM Krystle MEDRANO) FAMPWS During your visit today, we recorded the following information about you: Temperature Pulse Blood pressure Weight 98.5 degrees 76/minute 158/110 130.6 kg Last Period 05/29/18 Krystle Medrano PA-C 06/03/2018 2:42 PM Signed 37 year old female with c/o here for follow on Buspar for anxiety. Was trying as needed. Tried prn use, didn't help much. Has been taking three times a day with out benefit over last month wihtout any effect. Father became ill in April, was in ECF and over last several months. Very close. Grieving which has aggravated anxiety, panic attacks. Hx costochondritis. Has been having chest pressure with lifting. Not taking meloxicam. Not trouble with breathing. In pain management with Dr. Mccray. Hasn't needed tramadol lately. Also nearly done taking gabapentin. Hx panic attacks . Has had some mild panic sx with breathing. Crying a lot. Snappy. Last cortisone with similar reaction with hives and agitation. Seeing Dr. Mccray for pain management. Feels pain is improving. Disc pain much better. Hip hurts a little. Seeing chiropractor pema is working on left hip. Left arm and leg numbness is almost completely gone. Feels she can go off gabapentin. HISTORIES FAMILY HISTORY Problem Relation Age of Onset - Heart Father AL - Heart Paternal Grandmother TRIPLE BYPASS SURGERY - Cancer Maternal Grandmother LUNG CANCER - Cancer Father PANCREATIC CANCER - Diabetes Maternal Grandfather - Diabetes Father - Alcohol/Drug Mother PAST MEDICAL HISTORY Diagnosis Date - Acute cholecystitis Cholecystitis PAST SURGICAL HISTORY Procedure Laterality Date - DELIVERY ONLY 2006 , low cervical - INSERT INTRAUTERINE DEVICE 10/19/08 mirena - LAPAROSCOPIC CHOLEYCYSTECTOMY 2005 Cholecystectomy, lap (Rowena Monet) - REMOVE IUD 07/13/2010 Social History Marital status: Single Spouse name: Years of education: 12 Number of children: 1 Occupational History Occupation Employer Comment [employer] and [employer]* [employer] Student Social History Main Topics Smoking status: Never Smoker Smokeless tobacco: Never Used Alcohol use: No Drug use: No Sexual activity: No Other Topics Concern No BLOOD TRANSFUSIONS No CAFFEINE No OCCUPATIONAL EXPOSURE No HOBBY HAZARD No SLEEP CONCERN No STRESS CONCERN No WEIGHT CONCERN No DIET No BACK CARE No EXERCISE Yes Comment:DOESNT EXERCISE ROUTINELY BIKE HELMET No SEAT BELT No SELF EXAMS Yes Comment:DOESNT DO SBE ACTIVE PROBLEM LIST Other Acne Morbid Obesity (Hcc) Lumbar Disc Disorder Anxiety Current Outpatient Prescriptions: tiZANidine (ZANAFLEX) 4 mg tablet Take 1 tablet by mouth every 8 hours as needed. Disp: 20 tablet Rfl: 1 meloxicam (MOBIC) 15 mg tablet Take 1 tablet by mouth once daily. With food. Disp: 20 tablet Rfl: 0 busPIRone (BUSPAR) 5 mg tablet Take 1 tablet by mouth three times daily. Disp: 90 tablet Rfl: 2 albuterol HFA (VENTOLIN HFA) 90 mcg/actuation inhaler Inhale 2 Puffs as instructed every 4 hours as needed for Wheezing/Shortness of Breath. Disp: 1 Inhaler Rfl: 5 gabapentin (NEURONTIN) 300 mg capsule Take 300 mg by mouth daily at bedtime. Disp: Rfl: levonorgestrel (BELA) 14 mcg/24 hour (3 years) IUD IUD 1 Each by INTRAUTERINE route one time only. Bela: new one placed on 10/03/17 Disp: Rfl: 0 Skszgkog-Gv-Ajv-Fe-FA ( FORMULA) ORAL Tab Take 1 tablet by mouth once daily. Disp: Rfl: 0 No current facility-administered medications for this visit. There are no preventive care reminders to display for this patient. EXAM: BP 158/110 Pulse 76 Temp 36.9 ?C (98.5 ?F) (Tympanic) Wt 130.6 kg (288 lb) LMP 05/29/2018 (Approximate) BMI 45.11 kg/m? Pleasant morbidly obese woman in no acute distress. Alert and oriented all spheres. Normal affect and cognition. Speech normal. No deficits to learning or comprehension. Skin warm, dry, pink to lips and nailbeds. Normal turgor. Respirations regular and unlabored. Extrem: no clubbing, cyanosis, edema. Extremities are warm and pink with prompt capillary refill. ASSESSMENT/PLAN: 1. Grief - ICD9: 309.0, ICD10: F43.21 (primary diagnosis) SSRI therapy reviewed with administration, expectations, side effects, 6-24 months recommended if beneficial, tapered discontinuation. Discussed counseling as alternative or adjunct. Discussed lorazepam: limit to sparing use. Not to mix with tramadol and gabapentin - PAROXETINE 10 MG TABLET - LORAZEPAM 0.5 MG TABLET 2. Anxiety and depression - ICD9: 300.00, 311, ICD10: F41.9, F32.9 As above - PAROXETINE 10 MG TABLET - LORAZEPAM 0.5 MG TABLET F/u in 4 weeks JONNY Contreras PA-C 06/03/2018 2:06 PM Signed Paroxetine (Paxil) Your physician has prescribed paroxetine to help prevent your headaches. It is classified as a antidepressant in the serotonin Reuptake Inhibitor classification. It has been shown to be effective in preventing both migraine and tension type headaches. It works by increasing the levels of the neurotransmitter, serotonin within the brain. This drug may have beneficial effects on mood, appetite and memory, in addition to controlling your headaches. Side Effects: Include nausea during the first week of therapy. After the first week, most patients not a decreased appetite, and a five to ten pound weight change is common. Some people not an increased energy level. If this is too great people sometimes complain of anxiety or insomnia. Sexual dysfunction; sedation; fatigue. Notify your physician if you develop a rash. Also, notify your physician before starting treatments if you have taken a MAO inhibitor, i.e. Nardil, within the last 14 days. NOTE: Do not use during , unless directed by your physician. Paroxetine is excreted in breast milk. This drug usually takes one to two weeks to become effective. Therefore, you should take this at least two months to determine its effectiveness. Lorazepam (Patient Education - Adult Medication) You must carefully read the Consumer Information Use and Disclaimer below in order to understand and correctly use this information Pronunciation (alea A ze caterina) Brand Names: U.S. Ativan; LORazepam Intensol Brand Names: Rich Apo-Lorazepam; Ativan; Dom-Lorazepam; Lorazepam Injection, NURSING HOME; PHL-Lorazepam; PMS-Lorazepam; PRO-Lorazepam; Teva-Lorazepam What is this drug used for? -It is used to treat anxiety. -It is used to treat seizures. -It is used to ease anxiety before surgery. What do I need to tell my doctor BEFORE I take this drug? All products: -If you have an allergy to lorazepam or any other part of this drug. -If you are allergic to any drugs like this one, any other drugs, foods, or other substances. Tell your doctor about the allergy and what signs you had, like rash; hives; itching; shortness of breath; wheezing; cough; swelling of face, lips, tongue, or throat; or any other signs. -If you have any of these health problems: Glaucoma, low mood (depression), or certain mental problems. Shot: -If you have sleep apnea. This is not a list of all drugs or health problems that interact with this drug. Tell your doctor and pharmacist about all of your drugs (prescription or OTC, natural products, vitamins) and health problems. You must check to make sure that it is safe for you to take this drug with all of your drugs and health problems. Do not start, stop, or change the dose of any drug without checking with your doctor. What are some things I need to know or do while I take this drug? All products: -Tell dentists, surgeons, and other doctors that you use this drug. -Avoid driving and doing other tasks or actions that call for you to be alert until you see how this drug affects you. Avoid drinking beer, wine, or mixed drinks. You may need to do this for at least 24 hours after using this drug. Talk with your doctor -Talk with your doctor before you use other drugs and natural products that slow your actions. -Have your blood work checked if you are on this drug for a long time. Talk with your doctor. -This drug may be habit-forming with long-term use. -Do not take this drug for longer than you were told by your doctor. -Do not stop taking this drug all of a sudden without calling your doctor. You may have a greater risk of signs of withdrawal. If you need to stop this drug, you will want to slowly stop it as ordered by your doctor. -If you are 65 or older, use this drug with care. You could have more side effects. -This drug may cause harm to the unborn baby if you take it while you are . If you get while taking this drug, call your doctor right away. -Tell your doctor if you are or plan on getting . You will need to talk about the benefits and risks of using this drug while you are . -Tell your doctor if you are breast-feeding. You will need to talk about any risks to your baby. Shot: -Do not try to get out of bed without help for at least 8 hours after you use this drug. You may fall and hurt yourself. -Do not give to a child younger than 18 years of age. What are some side effects that I need to call my doctor about right away? WARNING/CAUTION: Even though it may be rare, some people may have very bad and sometimes deadly side effects when taking a drug. Tell your doctor or get medical help right away if you have any of the following signs or symptoms that may be related to a very bad side effect: -Signs of an allergic reaction, like rash; hives; itching; red, swollen, blistered, or peeling skin with or without fever; wheezing; tightness in the chest or throat; trouble breathing or talking; unusual hoarseness; or swelling of the mouth, face, lips, tongue, or throat. -Signs of low mood (depression), thoughts of killing yourself, nervousness, emotional ups and downs, thinking that is not normal, anxiety, or lack of interest in life. -Hallucinations. -Change in how you act. -Change in balance. -Change in thinking clearly and with logic. -Memory problems or loss. -Feeling very tired or weak. -Very bad dizziness or passing out. -Change in eyesight. -Muscle weakness. -Dark urine or yellow skin or eyes. -This drug may cause very bad and sometimes deadly breathing problems. Call your doctor right away if you have slow, shallow, or trouble breathing. What are some other side effects of this drug? All drugs may cause side effects. However, many people have no side effects or only have minor side effects. Call your doctor or get medical help if any of these side effects or any other side effects bother you or do not go away: All products: -Feeling sleepy. -Dizziness. -Headache. -Feeling tired or weak. Shot: -Irritation where the shot is given. These are not all of the side effects that may occur. If you have questions about side effects, call your doctor. Call your doctor for medical advice about side effects. You may report side effects to your national health agency. How is this drug best taken? Use this drug as ordered by your doctor. Read and follow the dosing on the label closely. All oral products: -Take with or without food. Take with food if it causes an upset stomach. Liquid (solution): -Use the dropper that comes with this drug to measure the drug. -Mix the liquid with water, juice, soda, applesauce, or pudding before taking it. -Swallow the mixture right away. Do not store for use at a later time. Under the tongue (sublingual) tablet: -Place tablet under your tongue and let melt. -Do not swallow for at least 2 minutes after using this drug. Shot: -It is given as a shot into a muscle or vein. What do I do if I miss a dose? -Take a missed dose as soon as you think about it. -If it is close to the time for your next dose, skip the missed dose and go back to your normal time. -Do not take 2 doses at the same time or extra doses. -Many times this drug is taken on an as needed basis. Do not take more often than told by the doctor. How do I store and/or throw out this drug? Tablets and under the tongue (sublingual) tablets: -Store at room temperature. -Store in a dry place. Do not store in a bathroom. Liquid (solution): -Store in a refrigerator. Do not freeze. -Throw away any part not used after 3 months. Shot: -The shot will be given to you in a hospital or doctor's office. You will not store it at home. All products: -Protect from light. -Keep all drugs out of the reach of children and pets. -Check with your pharmacist about how to throw out unused drugs. General drug facts -If your symptoms or health problems do not get better or if they become worse, call your doctor. -Do not share your drugs with others and do not take anyone else's drugs. -Keep a list of all your drugs (prescription, natural products, vitamins, OTC) with you. Give this list to your doctor. -Talk with the doctor before starting any new drug, including prescription or OTC, natural products, or vitamins. -Some drugs may have another patient information leaflet. If you have any questions about this drug, please talk with your doctor, pharmacist, or other health care provider. -If you think there has been an overdose, call your poison control center or get medical care right away. Be ready to tell or show what was taken, how much, and when it happened. Referring Provider: SELF [[id number]] Allergies As of Date: 06/03/2018 (No Known Allergies) Date Reviewed: 05/01/2018 Reviewed by: Jovana Hylton [employer]inter - Fully Assessed Reason for Visit: Medication Follow-up [270] Cmt: anxiety but Hal doesn't seem to be helping. Recently lost her father to an illness Reason For Visit History Recorded Primary Visit Diagnosis:Grief [F43.21] Other Visit Diagnosis:Anxiety and depression [F41.9, F32.9] Order(s):PARoxetine (PAXIL) 10 mg tabletTake 1 tablet by mouth once daily.Disp: 30 tabletRfl: 1 LORazepam (ATIVAN) 0.5 mg tabTake 1 tablet by mouth three times daily as needed (anxiety) for up to 30 days.Disp: 10 tabletRfl: 0 Prescriptions as of 06/03/2018 Sig: TIZANIDINE 4 MG TABLET Take 1 tablet by mouth every * MELOXICAM 15 MG TABLET Take 1 tablet by mouth once d* BUSPIRONE 5 MG TABLET Take 1 tablet by mouth three * ALBUTEROL SULFATE HFA 90 MCG/* Inhale 2 Puffs as instructed * GABAPENTIN 300 MG CAPSULE Take 300 mg by mouth daily at* LEVONORGESTREL 14 MCG/24 HOUR* 1 Each by INTRAUTERINE route * * VITAMIN,CALCIUM,MINE* Take 1 tablet by mouth once d* PAROXETINE 10 MG TABLET Take 1 tablet by mouth once d* LORAZEPAM 0.5 MG TABLET Take 1 tablet by mouth three * Problem List As Of Date 06/03/2018 Noted Resolved SUPERVIS NORMAL 1ST PREG [Z34.00] INVALID FOR*07/02/2006 TRANS HYPERTEN-ANTEPART [O13.9] INVALID FOR*07/02/2006 KERATOSIS PILARIS////SKIN ANOMALY NEC [Q82.8] INVALID FOR*01/23/2010 Other Acne [L70.8] INVALID FOR* FOLLICULITIS///HAIR DISEASES NEC [L73.8] INVALID FOR*01/23/2010 Lichenification and Lichen Simplex Chronicus [L*INVALID FOR*01/23/2010 DERMATOFIBROMA///BENIGN KAILEY SKIN ARM [D23.60] INVALID FOR*01/23/2010 Contact Dermatitis and Other Eczema, due to Uns*INVALID FOR*01/23/2010 SACROILIITIS [M46.1] INVALID FOR*01/23/2010 Routine general medical examination at a health*INVALID FOR*12/06/2012 Class: Chronic More... Routine gynecological examination [Z01.419] INVALID FOR*02/22/2014 Class: Chronic Morbid Obesity [E66.01] INVALID FOR* Lumbar Disc Disorder [M51.9] INVALID FOR* More... Routine general medical examination at a health*INVALID FOR*02/22/2014 Anxiety [F41.9] INVALID FOR* Other instructions from your clinician: Paroxetine (Paxil) Your physician has prescribed paroxetine to help prevent your headaches. It is classified as a antidepressant in the serotonin Reuptake Inhibitor classification. It has been shown to be effective in preventing both migraine and tension type headaches. It works by increasing the levels of the neurotransmitter, serotonin within the brain. This drug may have beneficial effects on mood, appetite and memory, in addition to controlling your headaches. Side Effects: Include nausea during the first week of therapy. After the first week, most patients not a decreased appetite, and a five to ten pound weight change is common. Some people not an increased energy level. If this is too great people sometimes complain of anxiety or insomnia. Sexual dysfunction; sedation; fatigue. Notify your physician if you develop a rash. Also, notify your physician before starting treatments if you have taken a MAO inhibitor, i.e. Nardil, within the last 14 days. NOTE: Do not use during , unless directed by your physician. Paroxetine is excreted in breast milk. This drug usually takes one to two weeks to become effective. Therefore, you should take this at least two months to determine its effectiveness. Lorazepam (Patient Education - Adult Medication) You must carefully read the Consumer Information Use and Disclaimer below in order to understand and correctly use this information Pronunciation (alea A ze caterina) Brand Names: U.S. Ativan; LORazepam Intensol Brand Names: Rich Apo-Lorazepam; Ativan; Dom-Lorazepam; Lorazepam Injection, NURSING HOME; PHL-Lorazepam; PMS-Lorazepam; PRO-Lorazepam; Teva-Lorazepam What is this drug used for? -It is used to treat anxiety. -It is used to treat seizures. -It is used to ease anxiety before surgery. What do I need to tell my doctor BEFORE I take this drug? All products: -If you have an allergy to lorazepam or any other part of this drug. -If you are allergic to any drugs like this one, any other drugs, foods, or other substances. Tell your doctor about the allergy and what signs you had, like rash; hives; itching; shortness of breath; wheezing; cough; swelling of face, lips, tongue, or throat; or any other signs. -If you have any of these health problems: Glaucoma, low mood (depression), or certain mental problems. Shot: -If you have sleep apnea. This is not a list of all drugs or health problems that interact with this drug. Tell your doctor and pharmacist about all of your drugs (prescription or OTC, natural products, vitamins) and health problems. You must check to make sure that it is safe for you to take this drug with all of your drugs and health problems. Do not start, stop, or change the dose of any drug without checking with your doctor. What are some things I need to know or do while I take this drug? All products: -Tell dentists, surgeons, and other doctors that you use this drug. -Avoid driving and doing other tasks or actions that call for you to be alert until you see how this drug affects you. Avoid drinking beer, wine, or mixed drinks. You may need to do this for at least 24 hours after using this drug. Talk with your doctor -Talk with your doctor before you use other drugs and natural products that slow your actions. -Have your blood work checked if you are on this drug for a long time. Talk with your doctor. -This drug may be habit-forming with long-term use. -Do not take this drug for longer than you were told by your doctor. -Do not stop taking this drug all of a sudden without calling your doctor. You may have a greater risk of signs of withdrawal. If you need to stop this drug, you will want to slowly stop it as ordered by your doctor. -If you are 65 or older, use this drug with care. You could have more side effects. -This drug may cause harm to the unborn baby if you take it while you are . If you get while taking this drug, call your doctor right away. -Tell your doctor if you are or plan on getting . You will need to talk about the benefits and risks of using this drug while you are . -Tell your doctor if you are breast-feeding. You will need to talk about any risks to your baby. Shot: -Do not try to get out of bed without help for at least 8 hours after you use this drug. You may fall and hurt yourself. -Do not give to a child younger than 18 years of age. What are some side effects that I need to call my doctor about right away? WARNING/CAUTION: Even though it may be rare, some people may have very bad and sometimes deadly side effects when taking a drug. Tell your doctor or get medical help right away if you have any of the following signs or symptoms that may be related to a very bad side effect: -Signs of an allergic reaction, like rash; hives; itching; red, swollen, blistered, or peeling skin with or without fever; wheezing; tightness in the chest or throat; trouble breathing or talking; unusual hoarseness; or swelling of the mouth, face, lips, tongue, or throat. -Signs of low mood (depression), thoughts of killing yourself, nervousness, emotional ups and downs, thinking that is not normal, anxiety, or lack of interest in life. -Hallucinations. -Change in how you act. -Change in balance. -Change in thinking clearly and with logic. -Memory problems or loss. -Feeling very tired or weak. -Very bad dizziness or passing out. -Change in eyesight. -Muscle weakness. -Dark urine or yellow skin or eyes. -This drug may cause very bad and sometimes deadly breathing problems. Call your doctor right away if you have slow, shallow, or trouble breathing. What are some other side effects of this drug? All drugs may cause side effects. However, many people have no side effects or only have minor side effects. Call your doctor or get medical help if any of these side effects or any other side effects bother you or do not go away: All products: -Feeling sleepy. -Dizziness. -Headache. -Feeling tired or weak. Shot: -Irritation where the shot is given. These are not all of the side effects that may occur. If you have questions about side effects, call your doctor. Call your doctor for medical advice about side effects. You may report side effects to your national health agency. How is this drug best taken? Use this drug as ordered by your doctor. Read and follow the dosing on the label closely. All oral products: -Take with or without food. Take with food if it causes an upset stomach. Liquid (solution): -Use the dropper that comes with this drug to measure the drug. -Mix the liquid with water, juice, soda, applesauce, or pudding before taking it. -Swallow the mixture right away. Do not store for use at a later time. Under the tongue (sublingual) tablet: -Place tablet under your tongue and let melt. -Do not swallow for at least 2 minutes after using this drug. Shot: -It is given as a shot into a muscle or vein. What do I do if I miss a dose? -Take a missed dose as soon as you think about it. -If it is close to the time for your next dose, skip the missed dose and go back to your normal time. -Do not take 2 doses at the same time or extra doses. -Many times this drug is taken on an as needed basis. Do not take more often than told by the doctor. How do I store and/or throw out this drug? Tablets and under the tongue (sublingual) tablets: -Store at room temperature. -Store in a dry place. Do not store in a bathroom. Liquid (solution): -Store in a refrigerator. Do not freeze. -Throw away any part not used after 3 months. Shot: -The shot will be given to you in a hospital or doctor's office. You will not store it at home. All products: -Protect from light. -Keep all drugs out of the reach of children and pets. -Check with your pharmacist about how to throw out unused drugs. General drug facts -If your symptoms or health problems do not get better or if they become worse, call your doctor. -Do not share your drugs with others and do not take anyone else's drugs. -Keep a list of all your drugs (prescription, natural products, vitamins, OTC) with you. Give this list to your doctor. -Talk with the doctor before starting any new drug, including prescription or OTC, natural products, or vitamins. -Some drugs may have another patient information leaflet. If you have any questions about this drug, please talk with your doctor, pharmacist, or other health care provider. -If you think there has been an overdose, call your poison control center or get medical care right away. Be ready to tell or show what was taken, how much, and when it happened. Prescriptions ordered this encounter Disp Refills Start End PAROXETINE 10 MG TABLET 30 t* 1 06/03/2018 Route: ORAL Sig: Take 1 tablet by mouth once daily. LORAZEPAM 0.5 MG TABLET 10 t* 0 06/03/2018 07/03/2018 Class: Print RX Route: ORAL Sig: Take 1 tablet by mouth three times daily as needed (anxiety) for up to 30 days. Disposition: Return in about 4 weeks (around 07/01/2018). Follow-up and Disposition History Recorded Encounter Status:Closed by Krystle MEDRANO PA-C on 06/03/18 CHIROPRACTIC REPORT Observed: 06/02/2018 Status: F Source: [place] 9:34 AM [facility] [address] [place] [id number] OFFICE VISIT Date of Service: 05/26/18 MR#: [id number] Acct: [id number] Name: SALEEM GRAY Rep #: [id number] : 1980 Provider: Bibiana Rehman D.C. Age/Sex: 37/F Location: [facility] Status: Signed Intake Vital Signs05/26/18 Height 5 ft 7 in 05/26/18 Weight: 305 lb 05/26/18 Body Mass Index (BMI) 47.7 Intake Visit Reasons: hip/back Is patient in pain?: Yes Allergies No Known Allergies Allergy (Verified 05/26/18 16:28) Medications Lorazepam [Ativan] 0.5 mg PO PRN PRN 10/27/13 [History Confirmed 05/26/18] Albuterol Inhaler [Ventolin Hfa (SP)] 1 - 2 puff INHALATION Q6H PRN PRN 10/27/15 [History Confirmed 05/26/18] Tizanidine HCl [Zanaflex] 4 mg PO PRN PRN 04/29/17 [History Confirmed 05/26/18] Topiramate [Trokendi Xr] 200 mg PO DAILY 12/05/17 [History Confirmed 05/26/18] gabapentin 300 mg capsule 300 mg PO BIDCM #60 cap 12/30/17 [Rx Confirmed 05/26/18] Naproxen [Naprosyn] 500 mg PO BID PRN #20 tab 03/09/18 [Rx Confirmed 05/26/18] PFSH Medical History gall bladder removal (Acute) Surgical History H/O: (Acute) Family History Father Diabetes Social History Smoking Status: Never smoker alcohol intake: never substance use type: does not use caffeine: Yes what type of physical activity do you participate in: walking frequency: daily seatbelt use: always do you feel safe at home: Yes HPI hip/back: Chief Complaint: L sided low back pain Visit Number: 1 Referral source: previous patient Details: SALEEM GRAY is a 37 year old F who presents with L sided low back pain. She states that roughly 5 weeks ago she slipped and did the splits, causing L sided low back pain. Saleem states that the pain has progressively gotten worse causing spasms in the low back. Today she rates her pain a 4/10 and describes it as a tight and sharp ache that is constant. Bending, lifting, twisting and leaning forward all cause increased pain, there is presence of numbness and tingling into the L leg although this is present from a previous injury. Onset: 04/21/18 Location: L low back Duration: constant Aggravating or associated factors: bending lifting and twisting Relieving factors: none Pain Quality: aching, dull, cramping, sharp, radiating Exam Musc General: Yes joint tenderness (T8, T9, L3, L5, L SI) and decreased ROM; no normal posture (obese) or normal gait (waddle) Thoracic/Lumbar Spine: thor and lumb spine abnorm to inspection (R short leg), Lasegue's sign positive on the left, pain with thoraco-lumbar ROM with forward flexion, with lateral flexion to the right, with lateral flexion to the left and with rotation to the left, paraspinal tenderness (moderate) on the left greater than right (QL, piriformis), thoraco-lumbar ROM limited with forward flexion, with lateral flexion to the left and with rotation to the left, thoraco-lumbar spasm (moderate) on the left greater than right (QL, paraspinal) Sacroiliac joints: on the left Neuro General: alert, awake, oriented x3, normal light touch, pain and propioception Ortho Test CERVICAL THORACIC LUMBAR Kemps: Positive, Le Valsalvas: Negative SLR: Negative Iliac Compression: Positive, Le Office Procedures Chiropractic Treatments Procedures Manipulation: 3-4 regions (T8, L3, L5, LIL) Electrical Stimulation: 15 mins (lumbar ) Results [facility] Office Urine Color Yellow Last Edit by Samaria Ren on 05/26/18 16:40 Office Urine Clarity Clear Last Edit by Samaria Ren on 05/26/18 16:40 [facility] Office , Urine Negative Last Edit by Samaria Ren on 05/26/18 16:40 Assessment AND Plan Problems 1. Degeneration of intervertebral disc of lumbosacral region M51.37 2. Disc displacement, lumbar M51.26 3. Segmental and somatic dysfunction of thoracic region M99.02 4. Segmental and somatic dysfunction of lumbar region M99.03 5. Segmental and somatic dysfunction of pelvic region M99.05 Plan Recommend beginning modified acute care treatment plan. Orders Orders: Plan Detail Goals Decrease pain and inflammation Barriers Obesity Previous disc injury Follow Up 2x/wk Coding Level of Care Code Off vis,est,level 1 Diagnoses Degeneration of intervertebral disc of lumbosacral region M51.37 Disc displacement, lumbar M51.26 Segmental and somatic dysfunction of thoracic region M99.02 Segmental and somatic dysfunction of lumbar region M99.03 Segmental and somatic dysfunction of pelvic region M99.05 Additional Codes Procedures - Manipulation: 3-4 regions (96124) Procedures - Electrical Stimulation: 15 mins (58236) 06/02/18 0934 <Electronically signed by Bibiana Rehman D.C.> Date Bibiana Rehman D.C. Cosigner Signature: Date (if applicable) CC: URINALYSIS, COMPLETE Collected: 05/26/2018 Status: F Source: [place] 7:04 PM [facility] REPOSITORY Order Comment: How was Urine Obtained? CLEAN CATCH TYPE CODE TESTS RESULT OUT OF RANGE REFERENCE UNITS LAB L400.3000 Yellow COLOR Normal Yellow LAB L400.3050 Clear Normal CLARITY Clear LAB L400.3200 Normal mg/dl Normal GLUCOSE, UR Normal LAB L400.3300 Negative mg/dL Normal BILIRUBIN URINE Negative LAB L400.3400 Negative mg/dl High 5 KETONE UR LAB L400.3465 1.002-1.030 Normal SP.GR. DIPSTX 1.020 LAB L400.3550 5.0 - 8.0 pH UR Normal 6.5 LAB L400.3600 Negative mg/dl High PROT 30 DIPSTX LAB L400.3700 Normal mg/dl Normal UROBILI Normal LAB L400.3750 Negative Normal NITRITE UR Negative LAB L400.3780 Negative /ul High 10 OCCULT BLOOD-UR LAB L400.3800 Negative /ul LEUK Normal ESTERASE Negative LAB L400.4050 0-5 /hpf WBC 0 Normal SEEN LAB L400.4100 0-5 /hpf Normal RBC-UA 0-5 SEEN LAB L400.4150 5-10 /hpf SQUAM Normal EPI 0-5 SEEN LAB L400.4300 None Seen /hpf 0 Normal BACTERIA SEEN LAB L400.4350 <or=2+ /hpf 0 Normal MUCUS, URINE SEEN LAB L400.4700 <or=2+ /hpf CA OX Normal CRYSTAL RARE Performed By: #### L400.0001, M100.0650 #### [facility] [address] [place], [address] Observed: 05/26/2018 Status: F Source: [place] CULTURE, URINE 7:04 PM [facility] REPOSITORY Urine Culture Below infection level. ORGANISM 1: Mixed Gram Positive Organisms [place] Count 25,000-50,000 MIX CULTURE Mixed contaminants. Submit a new specimen if indicated. Performed By: #### L400.0001, M100.0650 #### [facility] [address] [place], [address] RIBS UNI MIN 3V Observed: 05/01/2018 Status: F Source: [place] W/PA CHEST 1:12 PM [facility] REPOSITORY [facility] Services [address] [place] [address] Ribs Uni Min 3V w/PA Chest MR#: [id number] Acct: [id number] Name: SALEEM GRAY Rep #: [id number] : 1980 F 37 From: Noe Michael MD PCP: Zeferino Leon MD Status: REG CLI Study: Ribs Uni Min 3V w/PA Chest Date of Exam: 05/01/18 Exam# [id number] Ordering Dr: CINDY EDOUARD STUDY: X-RAY - UNILATERAL RIBS ( LEFT ) WITH CHEST REASON FOR EXAM: Female, 37 years old. Pain TECHNIQUE - RIBS: 4 view(s) of the ribs. TECHNIQUE - CHEST: PA COMPARISON: None. FINDINGS - RIBS: Normal visualized ribs without a demonstrated fracture. FINDINGS - CHEST: The lungs are clear and expanded. There is no demonstrated pleural abnormality. Normal size heart. Normal mediastinum and osman. Normal visualized pulmonary arteries. Normal visualized aortic arch and descending thoracic aorta. Normal visualized thoracic spine. Normal visualized ribs, clavicles, and shoulders. There is no demonstrated abnormality of the visualized soft tissue structures of the upper abdomen. RAD/Ribs Uni Min 3V w/PA Chest IMPRESSION: RIBS: Normal x-ray examination of the ribs. CHEST: Normal x-ray examination of the chest. Electronically Signed: Noe Michael MD at 22:44 EDT , Service support , CC: CINDY EDOUARD; Zeferino Leon MD Stator Tester: Signed DALE Observed: 05/01/2018 Status: COMPLETED Source: [place] 11:20 AM [facility] REPOSITORY Office Visit (FAMPWS) SALEEM GRAY ([id number]) 1980 F Date Time Provider Department 05/01/18 11:20 AM CINDY EDOUARD ([facility]) [facility] During your visit today, we recorded the following information about you: Pulse Respiration Blood pressure Weight 66/minute 14/minute 138/72 132.5 kg Cindy Edouard APRN.CNP 05/01/2018 3:07 PM Signed This is a 37 year old female who presents today with: Patient presents with: left rib pain: X 1 week HISTORY OF PRESENT ILLNESS: Saleem Gray is a 37 year old female. Patient presents with: left rib pain: X 1 week Slipped (without falling) last week. Hx of chronic back pain. Gets injections. Thought she was on the mend. Initially with left hip pain. Refers last night, she stretched and leaned towards her right, and had pain in the left posterior ribs and felt a lump. Refers she has been having some pain in the left posterior ribs. Concerned for a broken rib. She is taking meloxicam and Zanaflex all ready. She is currently being treated for costochondritis with the meloxicam. She reports a hx of having an allergic reaction X 2 with a steroid injection (hives). She denies any problems with breathing or any new chest pain. PAST MEDICAL HISTORY: PAST MEDICAL HISTORY Diagnosis Date - Acute cholecystitis Cholecystitis PAST SURGICAL HISTORY Procedure Laterality Date - DELIVERY ONLY 2005 , low cervical - INSERT INTRAUTERINE DEVICE 10/19/08 mirena - LAPAROSCOPIC CHOLEYCYSTECTOMY 2005 Cholecystectomy, lap (Rowena Monet) - REMOVE IUD 07/13/2010 ALLERGIES Patient has no known allergies. MEDICATIONS Current Outpatient Prescriptions: meloxicam (MOBIC) 15 mg tablet Take 1 tablet by mouth once daily. With food. busPIRone (BUSPAR) 5 mg tablet Take 1 tablet by mouth three times daily. tiZANidine (ZANAFLEX) 4 mg tablet Take 1 tablet by mouth every 8 hours as needed. albuterol HFA (VENTOLIN HFA) 90 mcg/actuation inhaler Inhale 2 Puffs as instructed every 4 hours as needed for Wheezing/Shortness of Breath. gabapentin (NEURONTIN) 300 mg capsule Take 300 mg by mouth daily at bedtime. topiramate (TROKENDI XR) 200 mg cp24 Take 1 capsule by mouth once daily. levonorgestrel (BELA) 14 mcg/24 hour (3 years) IUD IUD 1 Each by INTRAUTERINE route one time only. Bela: new one placed on 10/03/17 Aznkrrov-Sj-Exe-Fe-FA ( FORMULA) ORAL Tab Take 1 tablet by mouth once daily. No current facility-administered medications for this visit. FAMILY HISTORY Problem Relation Age of Onset - Heart Father AL - Heart Paternal Grandmother TRIPLE BYPASS SURGERY - Cancer Maternal Grandmother LUNG CANCER - Cancer Father PANCREATIC CANCER - Diabetes Maternal Grandfather - Diabetes Father - Alcohol/Drug Mother Social History Marital status: Single Spouse name: Years of education: 12 Number of children: 1 Occupational History Occupation Employer Comment [email or web address] Social History Main Topics Smoking status: Never Smoker Smokeless tobacco: Never Used Alcohol use: No Drug use: No Sexual activity: No Other Topics Concern No BLOOD TRANSFUSIONS No CAFFEINE No OCCUPATIONAL EXPOSURE No HOBBY HAZARD No SLEEP CONCERN No STRESS CONCERN No WEIGHT CONCERN No DIET No BACK CARE No EXERCISE Yes Comment:DOESNT EXERCISE ROUTINELY BIKE HELMET No SEAT BELT No SELF EXAMS Yes Comment:DOESNT DO SBE EXAM: BP 138/72 (BP Site: Left Arm, BP Position: Sitting, BP Cuff Size: Large Adult) Pulse 66 Resp 14 Wt 132.5 kg (292 lb) BMI 45.73 kg/m? PHYSICAL EXAM: General Appearance: Well appearing, alert, in no acute distress, well-hydrated, well nourished.. Skin: Skin color, texture, turgor normal, no suspicious rashes or lesions. Head: Normocephalic, no masses, lesions, tenderness or abnormalities. Eyes: Anicteric sclera. Extraocular movements are intact. . Back:+ tenderness to the bottom of the left posterior/lateral rib cage. + lump bilaterally, maybe a little more pronounced at the bottom of the left lateral rib cage as compared to the right. No discoloration. Lungs: Lungs clear to auscultation. No wheezing, rhonchi, rales. Heart: RRR without murmur, gallop, or rubs. No ectopy. Neurologic: Gait normal. ASSESSMENT/PLAN: 1. Rib pain on left side - ICD9: 786.50, ICD10: R07.81 Atypical chest pain, symptoms are not consistent with cardiac ischemia due to nonexertional nature of symptom, pleuritic nature of pain and localization of the pain possible etiology include Costochondritis/chest wall pain - Chest X-ray today. She works as [employer] and requests to go there. - Continue meloxicam. Continue ice/moist heat. Hx of allergic reaction (hives) after back steroid injection X 2 now -- so will try to hold off on steroids. - XR RIBS/CHEST 3V AP RIB/OBLS/CXR LT Discussed treatment plan and patient voices understanding. Patient's questions answered appropriately. Medications and potential side effects were discussed and patient voices understanding. Return to the office as scheduled or as needed for worsening/no improvement. Cindy Edouard APRN.BRANDAN Edouard APRN.CNP 05/01/2018 11:20 AM Signed 1. Get xrays. 2. Continue meloxicam. 3. Gentle stretching. Referring Provider: SELF [200] Allergies As of Date: 05/01/2018 (No Known Allergies) Date Reviewed: 05/01/2018 Reviewed by: Jovana Hylton Roller Printer - Fully Assessed Reason for Visit: left rib pain [Other] Cmt: X 1 week Primary Visit Diagnosis:Rib pain on left side [R07.81] Order(s):XR RIBS/CHEST 3V AP RIB/OBLS/CXR LT [[id number]] Order #: [id number] FUTURE Prescriptions as of 05/01/2018 Sig: MELOXICAM 15 MG TABLET Take 1 tablet by mouth once d* BUSPIRONE 5 MG TABLET Take 1 tablet by mouth three * TIZANIDINE 4 MG TABLET Take 1 tablet by mouth every * ALBUTEROL SULFATE HFA 90 MCG/* Inhale 2 Puffs as instructed * GABAPENTIN 300 MG CAPSULE Take 300 mg by mouth daily at* LEVONORGESTREL 14 MCG/24 HOUR* 1 Each by INTRAUTERINE route * * VITAMIN,CALCIUM,MINE* Take 1 tablet by mouth once d* Problem List As Of Date 05/01/2018 Noted Resolved SUPERVIS NORMAL 1ST PREG [Z34.00] INVALID FOR*07/02/2006 TRANS HYPERTEN-ANTEPART [O13.9] INVALID FOR*07/02/2006 KERATOSIS PILARIS////SKIN ANOMALY NEC [Q82.8] INVALID FOR*01/23/2010 Other Acne [L70.8] INVALID FOR* FOLLICULITIS///HAIR DISEASES NEC [L73.8] INVALID FOR*01/23/2010 Lichenification and Lichen Simplex Chronicus [L*INVALID FOR*01/23/2010 DERMATOFIBROMA///BENIGN KAILEY SKIN ARM [D23.60] INVALID FOR*01/23/2010 Contact Dermatitis and Other Eczema, due to Uns*INVALID FOR*01/23/2010 SACROILIITIS [M46.1] INVALID FOR*01/23/2010 Routine general medical examination at a health*INVALID FOR*12/06/2012 Class: Chronic More... Routine gynecological examination [Z01.419] INVALID FOR*02/22/2014 Class: Chronic Morbid Obesity [E66.01] INVALID FOR* Lumbar Disc Disorder [M51.9] INVALID FOR* More... Routine general medical examination at a health*INVALID FOR*02/22/2014 Anxiety [F41.9] INVALID FOR* Other instructions from your clinician: 1. Get xrays. 2. Continue meloxicam. 3. Gentle stretching. Medications Discontinued During This Encounter topiramate (TROKENDI XR) 200 mg cp24 05/01/2018 Class: Historical Med Route: ORAL Sig: Take 1 capsule by mouth once daily. Disc: Discontinued by Patient Encounter Status:Closed by CINDY EDOUARD CNP on 05/01/18 PROGRESS Observed: 05/01/2018 Status: COMPLETED Source: [place] 10:[address] [facility] [place] REPOSITORY HNO ID: [id number] Author: Cindy (Brandan) Silke Service: (none) Author Type: Nurse Practitioner Type: Progress Notes Filed: 05/01/2018 3:07 PM Note Text: This is a 37 year old female who presents today with: Patient presents with: left rib pain: X 1 week HISTORY OF PRESENT ILLNESS: Saleem Gray is a 37 year old female. Patient presents with: left rib pain: X 1 week Slipped (without falling) last week. Hx of chronic back pain. Gets injections. Thought she was on the mend. Initially with left hip pain. Refers last night, she stretched and leaned towards her right, and had pain in the left posterior ribs and felt a lump. Refers she has been having some pain in the left posterior ribs. Concerned for a broken rib. She is taking meloxicam and Zanaflex all ready. She is currently being treated for costochondritis with the meloxicam. She reports a hx of having an allergic reaction X 2 with a steroid injection (hives). She denies any problems with breathing or any new chest pain. PAST MEDICAL HISTORY: PAST MEDICAL HISTORY Diagnosis Date - Acute cholecystitis Cholecystitis PAST SURGICAL HISTORY Procedure Laterality Date - DELIVERY ONLY 2006 , low cervical - INSERT INTRAUTERINE DEVICE 10/19/08 mirena - LAPAROSCOPIC CHOLEYCYSTECTOMY 2006 Cholecystectomy, lap (Rowena Monet) - REMOVE IUD 07/13/2010 ALLERGIES Patient has no known allergies. MEDICATIONS Current Outpatient Prescriptions: meloxicam (MOBIC) 15 mg tablet Take 1 tablet by mouth once daily. With food. busPIRone (BUSPAR) 5 mg tablet Take 1 tablet by mouth three times daily. tiZANidine (ZANAFLEX) 4 mg tablet Take 1 tablet by mouth every 8 hours as needed. albuterol HFA (VENTOLIN HFA) 90 mcg/actuation inhaler Inhale 2 Puffs as instructed every 4 hours as needed for Wheezing/Shortness of Breath. gabapentin (NEURONTIN) 300 mg capsule Take 300 mg by mouth daily at bedtime. topiramate (TROKENDI XR) 200 mg cp24 Take 1 capsule by mouth once daily. levonorgestrel (BELA) 14 mcg/24 hour (3 years) IUD IUD 1 Each by INTRAUTERINE route one time only. Bela: new one placed on 10/03/17 Nfymrkwh-Gh-Zwc-Fe-FA ( FORMULA) ORAL Tab Take 1 tablet by mouth once daily. No current facility-administered medications for this visit. FAMILY HISTORY Problem Relation Age of Onset - Heart Father AL - Heart Paternal Grandmother TRIPLE BYPASS SURGERY - Cancer Maternal Grandmother LUNG CANCER - Cancer Father PANCREATIC CANCER - Diabetes Maternal Grandfather - Diabetes Father - Alcohol/Drug Mother Social History Marital status: Single Spouse name: Years of education: 12 Number of children: 1 Occupational History Occupation Employer Comment [employer] Student Social History Main Topics Smoking status: Never Smoker Smokeless tobacco: Never Used Alcohol use: No Drug use: No Sexual activity: No Other Topics Concern No BLOOD TRANSFUSIONS No CAFFEINE No OCCUPATIONAL EXPOSURE No HOBBY HAZARD No SLEEP CONCERN No STRESS CONCERN No WEIGHT CONCERN No DIET No BACK CARE No EXERCISE Yes Comment:DOESNT EXERCISE ROUTINELY BIKE HELMET No SEAT BELT No SELF EXAMS Yes Comment:DOESNT DO SBE EXAM: BP 138/72 (BP Site: Left Arm, BP Position: Sitting, BP Cuff Size: Large Adult) Pulse 66 Resp 14 Wt 132.5 kg (292 lb) BMI 45.73 kg/m? PHYSICAL EXAM: General Appearance: Well appearing, alert, in no acute distress, well-hydrated, well nourished.. Skin: Skin color, texture, turgor normal, no suspicious rashes or lesions. Head: Normocephalic, no masses, lesions, tenderness or abnormalities. Eyes: Anicteric sclera. Extraocular movements are intact. . Back:+ tenderness to the bottom of the left posterior/lateral rib cage. + lump bilaterally, maybe a little more pronounced at the bottom of the left lateral rib cage as compared to the right. No discoloration. Lungs: Lungs clear to auscultation. No wheezing, rhonchi, rales. Heart: RRR without murmur, gallop, or rubs. No ectopy. Neurologic: Gait normal. ASSESSMENT/PLAN: 1. Rib pain on left side - ICD9: 786.50, ICD10: R07.81 Atypical chest pain, symptoms are not consistent with cardiac ischemia due to nonexertional nature of symptom, pleuritic nature of pain and localization of the pain possible etiology include Costochondritis/chest wall pain - Chest X-ray today. She works as [employer] and requests to go there. - Continue meloxicam. Continue ice/moist heat. Hx of allergic reaction (hives) after back steroid injection X 2 now -- so will try to hold off on steroids. - XR RIBS/CHEST 3V AP RIB/OBLS/CXR LT Discussed treatment plan and patient voices understanding. Patient's questions answered appropriately. Medications and potential side effects were discussed and patient voices understanding. Return to the office as scheduled or as needed for worsening/no improvement. Cindy Edouard APRN.DIRECTOR COMPLIANCE 12 LEAD ELECTROCARDIOGRAM Observed: 03/12/2018 Status: F Source: [place] 1:36 PM [facility] REPOSITORY [facility] Cardiovascular Services [address] [place] [id number] 12 Lead EKG 03/09/18 1041 MR#: [id number] Acct: [id number] Name: SALEEM GRAY Rep #: [id number] : 1980 37 From: Angel Cruz MD Attending Dr: Status: DEP ER Ordering Dr: Hermelindo Gauthier MD Date: 03/09/18 Location: ED Sex: F C Admitted: Test Reason : CP Blood Pressure : / mmHG Vent. Rate : 078 BPM Atrial Rate : 078 BPM P-R Int : 128 ms QRS Dur : 088 ms QT Int : 424 ms P-R-T Axes : 009 007 159 degrees QTc Int : 483 ms Normal sinus rhythm Nonspecific ST and T wave abnormality Prolonged QT Abnormal ECG Confirmed by NANCY SHEARER, ANGEL ([id number]), editorial clerk GRAZYNA BLOOD ([id number]) on 03/12/2018 1:35:32 PM Referred By: JIMENA/JADE Confirmed By:ANGEL CRUZ MD 03/12/18 1335 Date Angel Cruz MD CC: MD Gume Gauthier; Zeferino Leon MD Signed 12 LEAD ELECTROCARDIOGRAM Observed: 03/12/2018 Status: F Source: [place] 1:35 PM [facility] REPOSITORY [facility] Cardiovascular Services [address] [place] [address] 12 Lead EKG 03/09/18 1417 MR#: [id number] Acct: [id number] Name: SALEEM GRAY Rep #: [id number] : 1980 37 From: Angel Cruz MD Attending Dr: Status: DEP ER Ordering Dr: Hermelindo Gauthier MD Date: 03/09/18 Location: ED Sex: F C Admitted: Test Reason : CP REPEAT Blood Pressure : / mmHG Vent. Rate : 065 BPM Atrial Rate : 065 BPM P-R Int : 136 ms QRS Dur : 084 ms QT Int : 430 ms P-R-T Axes : 011 -03 216 degrees QTc Int : 447 ms Normal sinus rhythm Nonspecific ST and T wave abnormality Abnormal ECG Confirmed by NANCY SHEARER, ANGEL ([id number]), editorial clerk GRAZYNA BLOOD ([id number]) on 03/12/2018 1:35:10 PM Referred By: JADE Confirmed By:ANGEL CRUZ MD 03/12/18 1335 Date Angel Cruz MD CC: MD Gume Gauthier; Zeferino Leon MD Signed PROGRESS Observed: 03/10/2018 Status: COMPLETED Source: [place] 4:[address] [facility] REPOSITORY HNO ID: [id number] Author: Zeferino Leon Service: (none) Author Type: Physician Type: Progress Notes Filed: 03/10/2018 4:59 PM Note Text: Patient presents with: Back Pain HPI: Patient presents today for office visit for follow up. Seen in [facility] ER yesterday with right sided chest pain. Cardiac enzymes and d dimer were negative. Now has moved and is over the sternum. Her arm is uncomfortable as well. Has not worked out in a week. No changes in exertion. No cough or congestion. Took a muscle relaxer last night. No heartburn. Took rolaids. Has been slightly short of breath and used her inhaler. Is sore to touch. Having increasing issues with her back. Her back has continued to be an issue. Had a reaction to previous injection at pain management. Advised her to check with pain management regarding what she was allergic to. Got a second injection without the dye but still reacted. Pain in back is overall better. Still having some pain. They are contemplating surgery if it is not any better. Suggested she could consider tax analyst if we needed to determine if it was a reaction. Apparently they have had some debate. Discussed anxiety options. Would prefer to avoid using benzo's MEDICATIONS: Current Outpatient Prescriptions: tiZANidine (ZANAFLEX) 4 mg tablet Take 1 tablet by mouth every 8 hours as needed. albuterol HFA (VENTOLIN HFA) 90 mcg/actuation inhaler Inhale 2 Puffs as instructed every 4 hours as needed for Wheezing/Shortness of Breath. gabapentin (NEURONTIN) 300 mg capsule Take 300 mg by mouth daily at bedtime. topiramate (TROKENDI XR) 200 mg cp24 Take 1 capsule by mouth once daily. levonorgestrel (BELA) 14 mcg/24 hour (3 years) IUD IUD 1 Each by INTRAUTERINE route one time only. Bela: new one placed on 10/03/17 Zlirwmyv-Yt-Nig-Fe-FA ( FORMULA) ORAL Tab Take 1 tablet by mouth once daily. No current facility-administered medications for this visit. ALLERGIES: ALLERGIES No Known Allergies PAST MEDICAL HISTORY Diagnosis Date - Acute cholecystitis Cholecystitis PAST SURGICAL HISTORY Procedure Laterality Date - DELIVERY ONLY 2005 , low cervical - INSERT INTRAUTERINE DEVICE 10/19/08 mirena - LAPAROSCOPIC CHOLEYCYSTECTOMY 2005 Cholecystectomy, lap (Rowena Monet) - REMOVE IUD 07/13/2010 FAMILY HISTORY Problem Relation Age of Onset - Heart Father AL - Heart Paternal Grandmother TRIPLE BYPASS SURGERY - Cancer Maternal Grandmother LUNG CANCER - Cancer Father PANCREATIC CANCER - Diabetes Maternal Grandfather - Diabetes Father - Alcohol/Drug Mother Social History Marital status: Single Spouse name: Years of education: 12 Number of children: 1 Occupational History Occupation Employer Comment [employer] Social History Main Topics Smoking status: Never Smoker Smokeless tobacco: Never Used Alcohol use: No Drug use: No Sexual activity: No Other Topics Concern No BLOOD TRANSFUSIONS No CAFFEINE No OCCUPATIONAL EXPOSURE No HOBBY HAZARD No SLEEP CONCERN No STRESS CONCERN No WEIGHT CONCERN No DIET No BACK CARE No EXERCISE Yes Comment:DOESNT EXERCISE ROUTINELY BIKE HELMET No SEAT BELT No SELF EXAMS Yes Comment:DOESNT DO SBE Reviewed current medications, allergies, past medical history, surgical history, family history and social history today. REVIEW OF SYSTEMS All other reviewed and negative other than HPI. HEALTH MAINTENANCE: Reviewed health maintenance issues today and recommended the following in detail. There are no preventive care reminders to display for this patient. VITALS: BP 136/88 Pulse 80 Temp 37.1 ?C (98.7 ?F) (Left Tympanic) Resp 14 Wt 133.8 kg (295 lb) BMI 46.20 kg/m? Last 4 Encounter Wt Readings: Date: Wt: 03/10/2018 133.8 kg (295 lb) 12/13/2017 129.7 kg (286 lb) 06/19/2017 117.5 kg (259 lb) 05/24/2017 117.5 kg (259 lb) PHYSICAL EXAMINATION: General appearance: Well appearing, alert, in no acute distress, well-hydrated, well nourished. Skin: Skin color, texture, turgor normal, no suspicious rashes or lesions Head: Normocephalic, no masses, lesions, tenderness or abnormalities Lungs: Lungs clear to auscultation. No wheezing, rhonchi, rales Heart: RRR without murmur, gallop, or rubs. No ectopy Abdomen: Normal abdominal exam, Abdomen soft, non-tender. Bowel sounds normal. No masses, organomegaly Extremities: No deformities, edema, skin discoloration, clubbing or cyanosis. Good capillary refill. Chest wall: tender over the costochondral junction. ASSESSMENT/PLAN: 1. Chest pain, unspecified type - ICD9: 786.50, ICD10: R07.9 (primary diagnosis) - is musculoskeletal. - Red flags for re-assessment reviewed with patient in detail. - Call if symptoms worsen at all or if not better in one to two weeks - MELOXICAM 15 MG TABLET 2. Costochondritis - ICD9: 733.6, ICD10: M94.0 3. Anxiety - ICD9: 300.00, ICD10: F41.9 - Discussed risks and benefits of new medication with the patient. Advised them to call if any side effects or questions. - BUSPIRONE 5 MG TABLET Zeferino Leon MD CNOV Observed: 03/10/2018 Status: COMPLETED Source: [place] 4:00 PM [facility] REPOSITORY [facility] SALEEM GRAY ([id number]) 1980 F Date Time Provider Department 03/10/18 4:00 PM [facility] During your visit today, we recorded the following information about you: Temperature Pulse Respiration Blood pressure 98.7 degrees 80/minute 14/minute 136/88 Weight 133.8 kg Zeferino Leon 03/10/2018 4:59 PM Signed Patient presents with: Back Pain HPI: Patient presents today for office visit for follow up. Seen in [facility] ER yesterday with right sided chest pain. Cardiac enzymes and d dimer were negative. Now has moved and is over the sternum. Her arm is uncomfortable as well. Has not worked out in a week. No changes in exertion. No cough or congestion. Took a muscle relaxer last night. No heartburn. Took rolaids. Has been slightly short of breath and used her inhaler. Is sore to touch. Having increasing issues with her back. Her back has continued to be an issue. Had a reaction to previous injection at pain management. Advised her to check with pain management regarding what she was allergic to. Got a second injection without the dye but still reacted. Pain in back is overall better. Still having some pain. They are contemplating surgery if it is not any better. Suggested she could consider tax analyst if we needed to determine if it was a reaction. Apparently they have had some debate. Discussed anxiety options. Would prefer to avoid using benzo's MEDICATIONS: Current Outpatient Prescriptions: tiZANidine (ZANAFLEX) 4 mg tablet Take 1 tablet by mouth every 8 hours as needed. albuterol HFA (VENTOLIN HFA) 90 mcg/actuation inhaler Inhale 2 Puffs as instructed every 4 hours as needed for Wheezing/Shortness of Breath. gabapentin (NEURONTIN) 300 mg capsule Take 300 mg by mouth daily at bedtime. topiramate (TROKENDI XR) 200 mg cp24 Take 1 capsule by mouth once daily. levonorgestrel (BELA) 14 mcg/24 hour (3 years) IUD IUD 1 Each by INTRAUTERINE route one time only. Bela: new one placed on 10/03/17 Xiukequt-Qm-Qdx-Fe-FA ( FORMULA) ORAL Tab Take 1 tablet by mouth once daily. No current facility-administered medications for this visit. ALLERGIES: ALLERGIES No Known Allergies PAST MEDICAL HISTORY Diagnosis Date - Acute cholecystitis Cholecystitis PAST SURGICAL HISTORY Procedure Laterality Date - DELIVERY ONLY 2006 , low cervical - INSERT INTRAUTERINE DEVICE 10/19/08 mirena - LAPAROSCOPIC CHOLEYCYSTECTOMY 2006 Cholecystectomy, lap (Rowena Monet) - REMOVE IUD 07/13/2010 FAMILY HISTORY Problem Relation Age of Onset - Heart Father AL - Heart Paternal Grandmother TRIPLE BYPASS SURGERY - Cancer Maternal Grandmother LUNG CANCER - Cancer Father PANCREATIC CANCER - Diabetes Maternal Grandfather - Diabetes Father - Alcohol/Drug Mother Social History Marital status: Single Spouse name: Years of education: 12 Number of children: 1 Occupational History Occupation Employer Comment [employer]* [employer] Student Social History Main Topics Smoking status: Never Smoker Smokeless tobacco: Never Used Alcohol use: No Drug use: No Sexual activity: No Other Topics Concern No BLOOD TRANSFUSIONS No CAFFEINE No OCCUPATIONAL EXPOSURE No HOBBY HAZARD No SLEEP CONCERN No STRESS CONCERN No WEIGHT CONCERN No DIET No BACK CARE No EXERCISE Yes Comment:DOESNT EXERCISE ROUTINELY BIKE HELMET No SEAT BELT No SELF EXAMS Yes Comment:DOESNT DO SBE Reviewed current medications, allergies, past medical history, surgical history, family history and social history today. REVIEW OF SYSTEMS All other reviewed and negative other than HPI. HEALTH MAINTENANCE: Reviewed health maintenance issues today and recommended the following in detail. There are no preventive care reminders to display for this patient. VITALS: BP 136/88 Pulse 80 Temp 37.1 ?C (98.7 ?F) (Left Tympanic) Resp 14 Wt 133.8 kg (295 lb) BMI 46.20 kg/m? Last 4 Encounter Wt Readings: Date: Wt: 03/10/2018 133.8 kg (295 lb) 12/13/2017 129.7 kg (286 lb) 06/19/2017 117.5 kg (259 lb) 05/24/2017 117.5 kg (259 lb) PHYSICAL EXAMINATION: General appearance: Well appearing, alert, in no acute distress, well-hydrated, well nourished. Skin: Skin color, texture, turgor normal, no suspicious rashes or lesions Head: Normocephalic, no masses, lesions, tenderness or abnormalities Lungs: Lungs clear to auscultation. No wheezing, rhonchi, rales Heart: RRR without murmur, gallop, or rubs. No ectopy Abdomen: Normal abdominal exam, Abdomen soft, non-tender. Bowel sounds normal. No masses, organomegaly Extremities: No deformities, edema, skin discoloration, clubbing or cyanosis. Good capillary refill. Chest wall: tender over the costochondral junction. ASSESSMENT/PLAN: 1. Chest pain, unspecified type - ICD9: 786.50, ICD10: R07.9 (primary diagnosis) - is musculoskeletal. - Red flags for re-assessment reviewed with patient in detail. - Call if symptoms worsen at all or if not better in one to two weeks - MELOXICAM 15 MG TABLET 2. Costochondritis - ICD9: 733.6, ICD10: M94.0 3. Anxiety - ICD9: 300.00, ICD10: F41.9 - Discussed risks and benefits of new medication with the patient. Advised them to call if any side effects or questions. - BUSPIRONE 5 MG TABLET Zeferino Leon MD Referring Provider: SELF [[id number]] Allergies As of Date: 03/10/2018 (No Known Allergies) Date Reviewed: 03/10/2018 Reviewed by: Tracy Malloy Ma - Fully Assessed Reason for Visit: Back Pain [12] Primary Visit Diagnosis:Chest pain, unspecified type [R07.9] Other Visit Diagnoses:Costochondritis [M94.0] Anxiety [F41.9] Order(s):meloxicam (MOBIC) 15 mg tabletTake 1 tablet by mouth once daily. With food.Disp: 20 tabletRfl: 0 busPIRone (BUSPAR) 5 mg tabletTake 1 tablet by mouth three times daily.Disp: 90 tabletRfl: 2 Prescriptions as of 03/10/2018 Sig: TIZANIDINE 4 MG TABLET Take 1 tablet by mouth every * ALBUTEROL SULFATE HFA 90 MCG/* Inhale 2 Puffs as instructed * GABAPENTIN 300 MG CAPSULE Take 300 mg by mouth daily at* TOPIRAMATE XR 200 MG CAPSULE,* Take 1 capsule by mouth once * LEVONORGESTREL 14 MCG/24 HOUR* 1 Each by INTRAUTERINE route * * VITAMIN,CALCIUM,MINE* Take 1 tablet by mouth once d* MELOXICAM 15 MG TABLET Take 1 tablet by mouth once d* BUSPIRONE 5 MG TABLET Take 1 tablet by mouth three * Problem List As Of Date 03/10/2018 Noted Resolved SUPERVIS NORMAL 1ST PREG [Z34.00] INVALID FOR*07/02/2006 TRANS HYPERTEN-ANTEPART [O13.9] INVALID FOR*07/02/2006 KERATOSIS PILARIS////SKIN ANOMALY NEC [Q82.8] INVALID FOR*01/23/2010 Other Acne [L70.8] INVALID FOR* FOLLICULITIS///HAIR DISEASES NEC [L73.8] INVALID FOR*01/23/2010 Lichenification and Lichen Simplex Chronicus [L*INVALID FOR*01/23/2010 DERMATOFIBROMA///BENIGN KAILEY SKIN ARM [D23.60] INVALID FOR*01/23/2010 Contact Dermatitis and Other Eczema, due to Uns*INVALID FOR*01/23/2010 SACROILIITIS [M46.1] INVALID FOR*01/23/2010 Routine general medical examination at a health*INVALID FOR*12/06/2012 Class: Chronic More... Routine gynecological examination [Z01.419] INVALID FOR*02/22/2014 Class: Chronic Morbid Obesity [E66.01] INVALID FOR* Lumbar Disc Disorder [M51.9] INVALID FOR* More... Routine general medical examination at a health*INVALID FOR*02/22/2014 Anxiety [F41.9] INVALID FOR* Prescriptions ordered this encounter Disp Refills Start End MELOXICAM 15 MG TABLET 20 t* 0 03/10/2018 Route: ORAL Sig: Take 1 tablet by mouth once daily. With food. BUSPIRONE 5 MG TABLET 90 t* 2 03/10/2018 Route: ORAL Sig: Take 1 tablet by mouth three times daily. Disposition: Return in about 6 weeks (around 04/21/2018). Follow-up and Disposition History Recorded Encounter Status:Closed by ZEFERINO LEON MD on 03/10/18 EMERGENCY DEPARTMENT Observed: 03/09/2018 Status: F Source: [place] SUMMARY 3:12 PM [facility] REPOSITORY [facility] Medical Records Department [address] [place] [address] Emergency Department Summary 03/09/18 1052 MR#: [id number] Acct: [id number] Name: SALEEM GRAY Rep #: [id number] : 1980 37 From: Hermelindo Gauthier MD PCP: Zeferino Leon MD Status: DEP ER - ER Visit Summary Date of Service: 03/09/18 Chief Complaint: [] Right sided sharp chest pain began today at work History of Present Illness: The patient is a 37 F [] has any significant past medical history, 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 Fact she reports she has no past history of any kind. She has had her cholesterol checked, normal, she does not smoke she does not experience exertional chest pain, she was not exerting herself today and anyway this began having the sharp stabbing pain. She indicates the pain is worse when she turns or bends over, she woke feeling fine came to the hospital with no symptoms, she points to the right parasternal margin as the originating area of her pain has had no trauma to her body, she has no history of DVT or PE Physical Examination: [] Signs are within normal range she is resting comfortably bed her BMI is about 50, she is awake and alert HEENT exam is unremarkable the lungs are clear the heart tones are normal she has some discomfort to the right parasternal region there is no warmth redness or signs of infection or trauma she has full range of motion of upper extremities the abdomen soft there is no rebound guarding or megaly upper lower extremities unremarkable without signs clubbing or edema the back is nontender she has full range of motion of the upper extremities 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 Test Results: [] Emergency Department Course and Treatment: [] EKG shows a sinus rhythm nothing acute screening labs chest x-ray her lab studies are all generally unremarkable see those reports, we discussed inpatient versus outpatient management with her she is feeling somewhat better she then agreed to have a delta troponin done, declined admission, the second troponin was negative EKG showed nothing acute at this time given all the above again she does not wish to be admitted she will be started on Naprosyn she will follow with her family doctors have explained she may require further outpatient management she will pursue that return for change in symptoms Treatment Plan: [] Disposition: [] Home Impression: [] Sharp right-sided chest pain etiology unclear This note was generated with [employer] dictation software. It may contain incorrect words, spelling, and punctuation that were not noted in review of the chart prior to signing ED Disposition - Plan for ED Patient: Chief Complaint: Chest Pain Referrals: Zeferino Leon MD [Primary Care Provider] - What to do if you have Problems For any increased pain, shortness of breath, bleeding, nausea or vomiting, chest pain, or any unexpected problems, contact your Primary Care Provider. Call [facility] ([phone]) or report to the closest Emergency Room. Call 911 if necessary. 03/09/18 5612 <Electronically signed by Hermelindo Gauthier MD> Date Hermelindo Gauthier MD Cosigner Signature (If Indicated): Date CC: Zeferino Leon MD DISCHARGE INSTRUCTION Observed: 03/09/2018 Status: F Source: [place] 1:50 PM [facility] REPOSITORY [facility] Medical Records Department [address] [place] [address] Discharge Instruction 03/09/18 1348 MR#: [id number] Acct: [id number] Name: SALEEM GRAY Rep #: [id number] : 1980 37 From: Hermelindo Gauthier MD PCP: Zeferino Leon MD Status: REG ER ED Disposition - Plan for ED Patient: Chief Complaint: Chest Pain Instructions: ED Chest Pain Atypical Unkn Cause Prescriptions: Naproxen [Naprosyn] 500 mg PO BID PRN #20 tab Referrals: Zeferino Leon MD [Primary Care Provider] - What to do if you have Problems For any increased pain, shortness of breath, bleeding, nausea or vomiting, chest pain, or any unexpected problems, contact your Primary Care Provider. Call [facility] ([phone]) or report to the closest Emergency Room. Call 911 if necessary. 03/09/18 1350 <Electronically signed by Hermelindo Gauthier MD> Date Hermelindo Gauthier MD Cosigner Signature (If Indicated): Date CC: Zeferino Leon MD DISCHARGE INSTRUCTION Observed: 03/09/2018 Status: F Source: [place] 1:47 PM [facility] REPOSITORY [facility] Medical Records Department [address] [place] [id number] Discharge Instruction 03/09/18 1347 MR#: [id number] Acct: [id number] Name: SALEEM GRAY Rep #: [id number] : 1980 37 From: Hermelindo Gauthier MD PCP: Zeferino Leon MD Status: REG ER ED Disposition - Plan for ED Patient: Chief Complaint: Chest Pain Instructions: ED Chest Pain Atypical Unkn Cause Referrals: Zeferino Leon MD [Primary Care Provider] - What to do if you have Problems For any increased pain, shortness of breath, bleeding, nausea or vomiting, chest pain, or any unexpected problems, contact your Primary Care Provider. Call [facility] ([phone]) or report to the closest Emergency Room. Call 911 if necessary. 03/09/18 1347 <Electronically signed by Hermelindo Gauthier MD> Date Hermelindo Gauthier MD Cosigner Signature (If Indicated): Date CC: Zeferino Leon MD TROPONIN-I Collected: 03/09/2018 Status: F Source: [place] 12:55 PM [facility] REPOSITORY Order Comment: Comments: Draw at 1 PM 'TROP' Serial specimen #1, #2, #3, or #4: 1 TYPE CODE TESTS RESULT OUT OF RANGE REFERENCE UNITS LAB L501.4010 <0.06 ng/mL Normal < 0.02 TROPONIN-I Result Comment: TROPONIN-I EXPECTED VALUES <0.05 NEGATIVE 0.06 - 0.59 AT RISK OF AL > OR = 0.60 SUGGEST AL Performed By: #### L501.4010 #### [facility] [address] [place], [address] CBC W/DIFF, AUTOMATED Collected: 03/09/2018 Status: F Source: [place] 10:45 AM [facility] REPOSITORY TYPE CODE TESTS RESULT OUT OF RANGE REFERENCE UNITS LAB L100.1000 4.4-11.0 K/mm3 Normal WBC 7.4 LAB L100.1200 4.2-5.4 M/mm3 Low RBC 4.13 LAB L100.1300 12.0-15.0 g/dl Normal HGB 13.1 LAB L100.1400 37-47 % Normal HCT 38.9 LAB L100.1500 81-99 fL Normal MCV 94.2 LAB L100.1600 27.0-32.0 pg Normal MCH 31.7 LAB L100.1700 32-36 g/gl Normal MCHC 33.7 LAB L100.1810 11.6-14.6 % Normal RDW CV 13.4 LAB L100.1820 35.1-43.9 fl High RDW SD 45.9 LAB L100.1900 150-450 K/mm3 Normal PLT 167 LAB L100.2000 6.2-12.0 fl Normal MPV 9.2 LAB L100.2100 47-70 % Normal NEUT% 59.7 LAB L100.2200 19-41 % Normal LY% 31.3 LAB L100.2300 0-10 % Normal MONO% 5.0 LAB L100.2400 0-5 % Normal EO% 2.2 LAB L100.2500 0-1 % Normal BASO% 0.4 LAB L100.2550 0.0-0.9 % High IM GRAN % 1.400 Result Comment: IG% - Immature Granulocytes (promyelocytes, myelocytes and metamyelocytes) > 1% indicates that a LEFT SHIFT is Present. LAB L100.2620 2.0-7.7 X10 3/uL Normal Absolute Neut 4.4 LAB L100.2720 0.83-4.51 X10 3/ul Normal Absolute Lymph 2.30 Performed By: #### L100.0100 #### [facility] [address] [place], [address] D-DIMER QUANTITATIVE Collected: 03/09/2018 Status: F Source: [place] (DVT/PE) 10:45 AM [facility] REPOSITORY TYPE CODE TESTS RESULT OUT OF RANGE REFERENCE UNITS LAB L300.8000 0.27-0.49 FEU/ug/m Normal D-DIMER 0.37 QUANT Result Comment: NORMAL D-Dimer level (<0.50) indicates no DVT or PE. Performed By: #### L300.8000 #### [facility] [address] [place], [address] BASIC METABOLIC Collected: 03/09/2018 Status: F Source: [place] PROFILE (BMP) 10:45 AM [facility] REPOSITORY Order Comment: 'TROP' Serial specimen #1, #2, #3, or #4: 1 TYPE CODE TESTS RESULT OUT OF RANGE REFERENCE UNITS LAB L501.0100 74-106 mg/dL High GLU 210 Result Comment: Glucose result greater than or equal to 200 mg/dL suggests DIABETES MELLITUS per A.D.A. criteria. Please note revised GLUCOSE reference range effective 2017. LAB L501.1000 7-18 mg/dL Normal BUN 9 LAB L501.1100 0.55-1.02 mg/dL Normal CREAT,SERUM 0.71 Result Comment: The validity of the calculated GFR AND GFRAA in patients over 70 years has not been determined. Clinical correlation is essential. LAB L501.1110 >60 mL/min Normal EST GFR 100 Result Comment: Non- GFR Calc LAB L501.1115 >60 mL/min Normal EST GFR - AA 120 Result Comment: GFR Calc LAB L501.1255 ml/min Normal Estimated CRCL 107.55 LAB L501.1300 10-20 RATIO BUN/CRE Normal 12.7 LAB L501.2200 8.5-10 mg/dL Low .1 CA 8.1 LAB L501.5300 136-14 mmol/L 5 NA Normal 140 LAB L501.5600 3.5-5. mmol/L 1 K Normal 3.8 LAB L501.5900 98-107 mmol/L CL Normal 106 LAB L501.6100 21.0-3 mmol/L 2.0 CO2 Normal 25.0 LAB L501.6200 5-15 GAP Normal 9 Performed By: #### L500.2500, L501.4010 #### [facility] [address] [facility]. [place], [place], [address] TROPONIN-I Collected: 03/09/2018 Status: F Source: [place] 10:45 AM [facility] REPOSITORY Order Comment: 'TROP' Serial specimen #1, #2, #3, or #4: 1 TYPE CODE TESTS RESULT OUT OF RANGE REFERENCE UNITS LAB L501.4010 <0.06 ng/mL Normal < 0.02 TROPONIN-I Result Comment: TROPONIN-I EXPECTED VALUES <0.05 NEGATIVE 0.06 - 0.59 AT RISK OF AL > OR = 0.60 SUGGEST AL Performed By: #### L500.2500, L501.4010 #### [facility] [address] [place], [place], [address] CHEST 1 VIEW Observed: 03/09/2018 Status: F Source: [place] (PORTABLE) 10:44 AM [facility] REPOSITORY [facility] Imaging Services [address] [place] [address] Chest 1 View (Portable) MR#: [id number] Acct: [id number] Name: SALEEM GRAY Rep #: [id number] : 1980 F 37 From: Dre Saldivar DO PCP: Zeferino Leon MD Status: PRE ER Study: Chest 1 View (Portable) Date of Exam: 03/09/18 Exam# [id number] Ordering Dr: Hermelindo Gauthier MD STUDY: X-RAY CHEST REASON FOR EXAM: Female, 37 years old. Chest pain. TECHNIQUE: Single AP portable view of the chest. COMPARISON: None. FINDINGS: Telemetry wires overlie the chest. The lungs are clear and expanded. There is no demonstrated pleural abnormality. Normal size heart. Normal mediastinum and osman. Normal visualized pulmonary arteries. Normal visualized aortic arch and descending thoracic aorta. The thoracic spine is obscured by the mediastinum. There is degenerative osteoarthritis of the bilateral shoulders. There is no demonstrated abnormality of the visualized soft tissue structures of the upper abdomen. RAD/Chest 1 View (Portable) IMPRESSION: No acute cardiopulmonary disease. Electronically Signed: Dre Saldivar DO at 11:07 EDT Tel [phone], Service support , CC: MD Gume Gauthier; Zeferino Leon MD Stator Tester: Signed OPERATIVE REPORT Observed: 02/03/2018 Status: F Source: [place] 10:59 AM [facility] REPOSITORY [facility] Medical Records Department [address] [place] [address] Operative Report 02/03/18 1055 MR#: [id number] Acct: [id number] Name: SALEEM GRAY Rep #: [id number] : 1980 37 From: Noe Lai MD PCP: Zeferino Leon MD Status: DEP [facility] Y Location: [facility] Problem List (1) Lumbosacral spondylosis Status: Chronic (2) Lumbar facet arthropathy Status: Chronic (3) Degeneration of intervertebral disc of lumbosacral region Status: Chronic Report of Operation Date of Procedure: 02/03/18 Pre-Operative Diagnosis: Lumbosacral spondylosis, lumbosacral degenerative disc disease, lumbar facet arthropathy Post-Operative Diagnosis: Lumbosacral spondylosis, lumbosacral degenerative disc disease, lumbar facet arthropathy Surgery/Procedure Performed:: Left-sided lumbar facet steroid injection L3, L4, L5, S1 Description of Surgical Findings:: PROCEDURE: Left-sided lumbar facet steroid injection L3, L4, L5, S1 PREOPERATIVE DIAGNOSIS: Lumbosacral spondylosis, lumbosacral degenerative disc disease, and lumbar facet arthropathy POSTOPERATIVE DIAGNOSIS: Lumbosacral spondylosis, lumbosacral degenerative disc disease, and lumbar facet arthropathy ANESTHESIA: MAC COMPLICATIONS: None BLOOD LOSS: Minimal PROCEDURE IN DETAIL: History and physical today was reviewed. Risks and benefits of the procedure were explained. The patient understood, agreed to our procedure, and informed consent was obtained. IV inserted per routine protocol. The patient was taken to the operating room, placed in a prone position with a pillow positioned underneath the abdomen. The right side of his lower back was prepped and draped in a sterile fashion using iodine x3. Under fluoroscopy guidance, on AP view, L3 through S1 vertebral bodies were visualized. Skin and subcutaneous tissues were anesthetized with approximately 5 mL of 1% lidocaine using a 25-gauge regular needle. Under direct visualization with fluoroscopy at approximately 25-degree angle, starting on the left L3, ending on the left S1, passing through the L4-L5 using a 22-gauge 3 1/2-inch spinal needle, the needle was advanced via the skin. The tip of the needle was maneuvered and directed towards the superior and medial gutter of the transverse process at the vicinity of the medial branch. Once the tip of the needle was in contact with the bone, the needle pulled approximately 2 mm off the bone. After negative aspiration of blood with CSF and confirmation of AP as well as oblique view, a total of 8 mL of preservative-free 0.25% Marcaine with 80 mg of Depo-Medrol was injection in divided doses between those 4 levels. The needles were then removed intact. The patient experienced no signs or symptoms intrathecal, intravascular injection. The patient experienced no paraesthesia. The procedure was completed without any apparent difficult, any complication. The patient appeared to tolerate well. ASSESSMENT AND PLAN: This is a 37-year-old F with lumbosacral spondylosis, lumbosacral degenerative disc disease, and lumbar facet arthropathy, status post left-sided lumbar facet steroid injection L3 through S1. The patient will continue her current medications. The patient will follow in approximately 2 weeks for possible repeat of the procedure if indicated. 02/03/18 1059 <Electronically signed by Noe Lai MD> Date Noe Lai MD CC: Noe Lai; Zeferino Leon MD Signed LUMBAR SPINE 2 OR 3 Observed: 02/03/2018 Status: F Source: [facility] 4:53 AM [facility] REPOSITORY [facility] Imaging Services [address] [place] [address] Lumbar Spine 2 or 3 Views MR#: [id number] Acct: [id number] Name: SALEEM GRAY Ivan Rep #: [id number] : 1980 F 37 From: Chelsea Gomez MD PCP: Zefeirno Leon MD Status: [facility] Study: Lumbar Spine 2 or 3 Views Date of Exam: 02/03/18 Exam# [id number] Ordering Dr: Noe Lai MD CLINICAL HISTORY: Female, 37 years old. Lower back pain PROCEDURE: LEFT LUBAR FACET BLOCK LS1 FLUOROSCOPY TIME (if supplied): (0:10) minutes. 4 Images. RADIATION DOSAGE (If Supplied By Facility): CTDIvol = ( ) mGy, DLP = ( ) mGycm TECHNIQUE: LEFT LUBAR FACET BLOCK LS1 RAD/Lumbar Spine 2 or 3 Views IMPRESSION: LEFT LUBAR FACET BLOCK LS1 Electronically Signed: Chelsea Gomez MD at 14:11 EDT Tel , Service support , CC: Noe Lai; Zeferino Leon MD Stator Tester: Signed ORTHOPEDIC VISIT Observed: 12/30/2017 Status: F Source: [place] REPORT 2:45 PM [facility] REPOSITORY [facility] Orthopaedics AND Sports Medicine [address] [place] [address] OFFICE VISIT Date of Service: 12/27/17 MR#: [id number] Acct: [id number] Name: SALEEM GRAY Rep #: [id number] : 1980 Provider: Jackson Brown DO Age/Sex: 37/F Location: [facility] Status: Signed Intake Intake Visit Reasons: low back Allergies No Known Allergies Allergy (Verified 12/27/17 14:58) Medications Lorazepam [Ativan] 0.5 mg PO PRN PRN 10/27/13 [History Confirmed 12/27/17] Albuterol Inhaler [Ventolin Hfa (SP)] 1 - 2 puff INHALATION Q6H PRN PRN 10/27/15 [History Confirmed 12/27/17] Tizanidine HCl [Zanaflex] 4 mg PO PRN PRN 04/29/17 [History Confirmed 12/27/17] Gabapentin [Neurontin] 300 mg PO BIDCM 12/05/17 [History Confirmed 12/27/17] Topiramate [Trokendi Xr] 200 mg PO DAILY 12/05/17 [History Confirmed 12/27/17] PFSH Medical History gall bladder removal (Acute) Surgical History H/O: (Acute) Family History Father Diabetes Social History Smoking Status: Never smoker alcohol intake: never substance use type: does not use caffeine: Yes what type of physical activity do you participate in: walking frequency: daily seatbelt use: always do you feel safe at home: Yes HPI low back: Details: SALEEM GRAY is a 37 year old F here today for low back pain. She is here to discuss getting letter to go back to full duty, she is currently on light duty. She complains of left sided low back pain mainly after she gets off work. She continues to still have pain, tingling/numbness down her left leg. She does mention today she is starting to get these symptoms down her right leg. She did receive injections in her back by Dr. Lai on 12/09/17. ROS Const Reports system reviewed and no additional complaints, except as docu Eyes Reports system reviewed and no additional complaints, except as docu ENT Reports system reviewed and no additional complaints, except as docu Card Reports system reviewed and no additional complaints, except as docu Resp Reports system reviewed and no additional complaints, except as docu GI Reports system reviewed and no additional complaints, except as docu Reports system reviewed and no additional complaints, except as docu Musc Reports joint pain, Reports numbness, Reports radiating pain into limb, Reports tingling Skin/Breast Reports system reviewed and no additional complaints, except as docu Neuro Yes numbness, Yes tingling Psych Reports system reviewed and no additional complaints, except as docu Endo Reports system reviewed and no additional complaints, except as docu Angel/Lymph Reports system reviewed and no additional complaints, except as docu Aller/Immun Reports system reviewed and no additional complaints, except as docu Ortho Exam Spine General: alert, awake, oriented x3, gait normal, tone normal, moves all extremities Capillary Refill <2sec: Yes Cognition: normal cognition Speech: speech normal Gait: normal gait Motor: strength 5/5 throughout, muscle tone normal throughout Sensory Exam: no sensory deficits noted DTR's: Rt Triceps: 2+, Lt Triceps: 2+, Rt Biceps: 2+, Lt Biceps: 2+, Rt Brachioradialis: 2+, Lt Brachioradialis: 2+, Rt Patellar: 2+, Lt Patellar: 2+, Rt Ankle: 2+, Lt Ankle: 2+ SPINE TESTING CERVICAL THORACIC LUMBAR Musculoskeletal Thoracic/Lumbar Spine: thoracic and lumbar spine normal to inspection, No surgical scar(s) present, thoraco-lumbar ROM normal, No straight leg raise negative bilaterally, pain with thoraco-lumbar ROM, No paraspinal tenderness, No thoraco-lumbar ROM limited, No scoliosis, No thoraco-lumbar spasm, No thoracic spinal tenderness, No lumbar spinal tenderness, No straight leg raise positive, No tilt present, No other Strength 0=absent - 5=normal Deltoid R (C5): 5, Deltoid L (C5): 5, R Bicep (C5-6): 5, L Bicep (C5-6): 5, R Wrist Extensor (C6): 5, L Wrist Extensor (C6): 5, R Tricep (C7): 5, L Tricep (C7): 5, R Finger Flexors (C8): 5, L Finger Flexors (C8): 5, R First Dorsal Interossei (C8): 5, L First Dorsal Interossei (C8): 5, R Hip Flexor (L1-3): 5, L Hip Flexor (L1-3): 5, R Quadriceps (L2-4): 5, L Quadriceps (L2-4): 5, R Anterior Tibialis (L4-5): 5, L Anterior Tibialis (L4- 5): 5, R EHL (L5): 5, L EHL (L5): 5, R Hamstrings (L5-S1): 5, L Hamstrings (L5-S1): 5, GS (S1): 5, L GS (S1): 5, R Peroneals (S1): 5, L Peroneals (S1): 5 Assessment AND Plan Problems 1. Degeneration of intervertebral disc of lumbosacral region M51.37 2. Radiculopathy of lumbosacral region M54.17 3. Disc displacement, lumbar M51.26 Plan a/p: At this point time patient appears to be doing better. I will go ahead and return her to work per her request. She will return to work note will be provided and we will send one over to work but also give her the appropriate [employer] 14 C9 aware of her Workmen's Comp. stuff need to give her an order to go back to work. Continue with current treatment plan. Patient does well with gabapentin some go and refill the pain medication electronically. I will see the patient back really on a as needed basis. If she continues to be symptomatic consideration for evaluation by the orthospine team. Coding Level of Care Code Off vis,est,level 3 Diagnoses Degeneration of intervertebral disc of lumbosacral region M51.37 Radiculopathy of lumbosacral region M54.17 Disc displacement, lumbar M51.26 12/30/17 1445 <Electronically signed by Jackson Brown DO> Date Jackson Brown DO Cosigner Signature: Date (if applicable) CC: BRAIN/HEAD WITHOUT Observed: 12/13/2017 Status: F Source: [place] CONTRAST 2:17 PM [facility] REPOSITORY [facility] Imaging Services [address] [place] [address] Brain/Head without Contrast MR#: [id number] Acct: [id number] Name: SALEEM GRAY Rep #: [id number] : 1980 F 37 From: Emiliano Gonzalez MD PCP: Zeferino Leon MD Status: REG CLI Study: Brain/Head without Contrast Date of Exam: 12/13/17 Exam# [id number] Ordering Dr: Krystle Medrano STUDY: CT BRAIN WITHOUT CONTRAST REASON FOR EXAM: Female, 37 years old. Left-sided numbness and tingling. The patient is status post recent left-sided nerve block. RADIATION DOSAGE (If Supplied By Facility): CTDIvol = ( 60.81 ) mGy, DLP = ( 1089.89 ) mGycm TECHNIQUE: Transaxial CT imaging of the brain was performed without administration of intravenous contrast material. Individualized dose optimization techniques were used for this CT. COMPARISON: Comparison is made with prior study dated September 23, 2016. FINDINGS: Normal soft tissue structures. Normal calvarium. Normal size ventricles and extra-axial spaces for the patient's age. Normal white matter tracts of the cerebral hemispheres. Normal basal ganglia and thalami. Normal brainstem. Normal cerebellum. There is no intracranial hemorrhage. There are no findings of an acute ischemic infarction. Normal visualized paranasal sinuses. CT/Brain/Head without Contrast IMPRESSION: Normal unenhanced CT scan of the brain. Electronically Signed: Emiliano Gonzalez MD at 15:07 EST Tel [phone], Service support , CC: Krystle Medrano; Zeferino Leon MD Stator Tester: Signed CBC W/DIFF, AUTOMATED Collected: 12/13/2017 Status: F Source: [place] 10:29 AM [facility] REPOSITORY TYPE CODE TESTS RESULT OUT OF RANGE REFERENCE UNITS LAB L100.1000 4.4-11.0 K/mm3 High WBC 12.0 LAB L100.1200 4.2-5.4 M/mm3 Normal RBC 4.45 LAB L100.1300 12.0-15.0 g/dl Normal HGB 14.1 LAB L100.1400 37-47 % Normal HCT 41.7 LAB L100.1500 81-99 fL Normal MCV 93.7 LAB L100.1600 27.0-32.0 pg Normal MCH 31.7 LAB L100.1700 32-36 g/gl Normal MCHC 33.8 LAB L100.1810 11.6-14.6 % Normal RDW CV 14.0 LAB L100.1820 35.1-43.9 fl High RDW SD 47.6 LAB L100.1900 150-450 K/mm3 Normal PLT 193 LAB L100.2000 6.2-12.0 fl Normal MPV 9.4 LAB L100.2100 47-70 % Normal NEUT% 67.0 LAB L100.2200 19-41 % Normal LY% 23.3 LAB L100.2300 0-10 % Normal MONO% 5.7 LAB L100.2400 0-5 % Normal EO% 1.7 LAB L100.2500 0-1 % Normal BASO% 0.6 LAB L100.2550 0.0-0.9 % High IM GRAN % 1.700 Result Comment: IG% - Immature Granulocytes (promyelocytes, myelocytes and metamyelocytes) > 1% indicates that a LEFT SHIFT is Present. LAB L100.2620 2.0-7.7 X10 3/uL High Absolute Neut 8.1 LAB L100.2720 0.83-4.51 X10 3/ul Normal Absolute Lymph 2.81 Performed By: #### L100.0100 #### [facility] [address] [place], [address] COMPREHENSIVE METABOLIC Collected: 12/13/2017 Status: F Source: [place] [facility] 10:29 AM [facility] REPOSITORY TYPE CODE TESTS RESULT OUT OF RANGE REFERENCE UNITS LAB L501.0100 74-106 mg/dL High GLU 115 Result Comment: Fasting Glucose result from 100 to 125 mg/dL suggests IMPAIRED HOMEOSTASIS per A.D.A. criteria. Please note revised GLUCOSE reference range effective 2017. LAB L501.1000 7-18 mg/dL Normal BUN 13 LAB L501.1100 0.55-1.02 mg/dL Normal CREAT,SERUM 0.57 Result Comment: The validity of the calculated GFR AND GFRAA in patients over 70 years has not been determined. Clinical correlation is essential. LAB L501.1110 >60 mL/min Normal EST GFR 127 Result Comment: Non- GFR Calc LAB L501.1115 >60 mL/min Normal EST GFR - AA 154 Result Comment: GFR Calc LAB L501.1300 10-20 RATIO High BUN/CRE 22.6 LAB L501.1500 6.4-8.2 g/dL T Normal PROT 8.0 LAB L501.1800 3.2-5.0 g/dL Normal ALB 3.9 LAB L501.1950 2.2-4.2 g/dL Normal GLOB 4.1 LAB L501.2000 0.9-2.4 RATIO Normal A/G 1.0 LAB L501.2200 8.5-10.1 mg/dL CA Normal 9.2 LAB L501.4100 15-37 U/L Normal AST 24 LAB L501.4305 45-117 U/L Normal ALK P 92 LAB L501.4405 13-56 U/L High ALT 58 Result Comment: Please note revised ALT reference range effective 2017. LAB L501.4600 0.20-1.00 mg/dL Normal T BILI 0.60 LAB L501.5300 136-145 mmol/L Normal NA 141 LAB L501.5600 3.5-5.1 mmol/L Normal K 4.0 LAB L501.5900 98-107 mmol/L High CL 109 LAB L501.6100 21.0-32.0 mmol/L Normal CO2 22.0 LAB L501.6200 5-15 Normal GAP 10 Performed By: #### L500.4050, L501.9520 #### [facility] [address] [place], [address] THYROID STIM HORMONE Collected: 12/13/2017 Status: F Source: [place] (TSH) 10:29 AM [facility] REPOSITORY TYPE CODE TESTS RESULT OUT OF RANGE REFERENCE UNITS LAB L501.9520 0.358-3.74 uIU/mL Normal TSH 3.29 Performed By: #### L500.4050, L501.9520 #### [facility] [address] [facility] [place], [address] PROGRESS Observed: 12/13/2017 Status: COMPLETED Source: [place] 9:13 AM [facility] REPOSITORY HNO ID: [id number] Author: Krystle Carroll (Jonny) Mitchell Service: (none) Author Type: Physician Message Clerk Type: Progress Notes Filed: 12/13/2017 1:29 PM Note Text: 37 year old female with c/o reaction to back injections. 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 Back injections on Saturday per pain management Dr. Mccray. Left side is completely numb. Very dizzy. Dr. Mccray notified by patient. Told to drink a gallon of water: did so. No change. Has hx of similar numbness and tingling. Feels like she is going to pass out. Eyes were bloodshot last 2 days, better today. Flushed. Hands swollen a little. Legs hurt terribly this morning, hurts to walk. In past gabapentin helped: not helping currently. Was told to decrease gabapentin by Dr. Mccray but doesn't understand why. Dizziness is more light headed/ airy feeling/ difficulty feeling she is steady, feels like she might pass out but standing still seems to improve over a minute or so. Not vertiginous, no dysequilibrium or falls. On BCP that inhibits cycle. No active bleeding. No N/V/D. No heart burn, chest pain, SOB, cough, orthopnea, PND, leg edema. Hx anxiety. Has ativan but has not tried. Feels tired and felt it would make her worse. HISTORIES FAMILY HISTORY Problem Relation Age of Onset - Heart Father AL - Heart Paternal Grandmother TRIPLE BYPASS SURGERY - Cancer Maternal Grandmother LUNG CANCER - Cancer Father PANCREATIC CANCER - Diabetes Maternal Grandfather - Diabetes Father - Alcohol/Drug Mother PAST MEDICAL HISTORY Diagnosis Date - Acute cholecystitis Cholecystitis PAST SURGICAL HISTORY Procedure Laterality Date - DELIVERY ONLY 2005 , low cervical - INSERT INTRAUTERINE DEVICE 10/19/08 mirena - LAPAROSCOPIC CHOLEYCYSTECTOMY 2005 Cholecystectomy, lap (Rowena Monet) - REMOVE IUD 07/13/2010 Social History Marital status: Single Spouse name: Years of education: 12 Number of children: 1 Occupational History Occupation Employer Comment [employer] Student Social History Main Topics Smoking status: Never Smoker Smokeless status: Never Used Alcohol use: No Drug use: No Sexual activity: No Other Topics Concern No BLOOD TRANSFUSIONS No CAFFEINE No OCCUPATIONAL EXPOSURE No HOBBY HAZARD No SLEEP CONCERN No STRESS CONCERN No WEIGHT CONCERN No DIET No BACK CARE No EXERCISE Yes Comment:DOESNT EXERCISE ROUTINELY BIKE HELMET No SEAT BELT No SELF EXAMS Yes Comment:DOESNT DO SBE ACTIVE PROBLEM LIST Other Acne Morbid Obesity (Hcc) Lumbar Disc Disorder Anxiety Current Outpatient Prescriptions: LORazepam (ATIVAN) 0.5 mg tab Take 1 tablet by mouth once daily as needed (anxiety) for up to 30 days. Disp: 10 tablet Rfl: 0 tiZANidine (ZANAFLEX) 4 mg tablet Take 1 tablet by mouth every 8 hours as needed. Disp: 20 tablet Rfl: 0 albuterol HFA (VENTOLIN HFA) 90 mcg/actuation inhaler Inhale 2 Puffs as instructed every 4 hours as needed for Wheezing/Shortness of Breath. Disp: 1 Inhaler Rfl: 5 gabapentin (NEURONTIN) 300 mg capsule Take 300 mg by mouth daily at bedtime. Disp: Rfl: topiramate (TROKENDI XR) 200 mg cp24 Take 1 capsule by mouth once daily. Disp: Rfl: levonorgestrel (BELA) 14 mcg/24 hour (3 years) IUD IUD 1 Each by INTRAUTERINE route one time only. Bela: new one placed on 10/03/17 Disp: Rfl: 0 Zevcbxnz-Wj-Koa-Fe-FA ( FORMULA) ORAL Tab Take 1 tablet by mouth once daily. Disp: Rfl: 0 No current facility-administered medications for this visit. There are no preventive care reminders to display for this patient. Lab review Component Latest Ref Rng AND Units 04/18/2005 12/05/2012 06/09/2013 02/22/2014 05/17/2014 08/12/2015 12/13/2017 Glucose 65 - 100 mg/dL 132 (H) 144 (H) 81 122 (H) 93 EXAM: BP 142/80 Pulse (!) 58 Temp 36 ?C (96.8 ?F) (Tympanic) Wt 129.7 kg (286 lb) SpO2 97% BMI 44.79 kg/m2 Pleasant morbidly obese female in no acute distress. Alert and oriented all spheres. Normal affect and cognition. Speech normal. No deficits to learning or comprehension. Skin warm, dry, pink to lips and nailbeds. Moderate bright red diffuse erythema face, upper chest , upper shoudlers and back. Normal turgor. Respirations regular and unlabored. No retractions. HEENT WNL. TM's clear. Nose and oropharynx free from injection or lesion. No cervical lymph nodes. Thyroid non-tender, no masses Chest CTA. HRRR without murmur or gallop. Extrem: no clubbing, cyanosis, edema. Extremities are warm and pink with prompt capillary refill. Pain with overhead shoulder mobility. Tender trigger points in teres major, coracobrachialis. Neuro: no focal deficit. No pronator or hip drift. Rhomberg negative. No pass pointing finger-nose. PERRLA, EOMI, no nystagmus. No flapping tremor. Motor 5/5+ hand grasp, biceps, triceps, deltoids, hip flexion, knee flexion.extension, foot plantar flexion/ extension. Sensation in tact upper and lower to light touch, cold and pinwheel. Component Latest Ref Rng AND Units 12/13/2017 Glucose, Point of Care 65 - 100 mg/dL 160 (A) Glucose 90 minutes after breakfast. ASSESSMENT/PLAN: 1. Medication reaction, initial encounter - ICD9: E947.9, ICD10: T88.7XXA (primary diagnosis) Suspect r/t steroid injection epidural. Low suspicion neurologic event. Anxiety is a factor/ Hx prior hyperglycemia. Reviewed red flags for emergency evaluation: SOB, chest pain, weakness. - GLUCOSE, BLOOD (POC) - CBC + DIFF - COMP METABOLIC PANEL - TSH BLD - CT head WO 2. Dizziness - ICD9: 780.4, ICD10: R42 Suspect anxiety component with above. Try ativan and see if improves. - GLUCOSE, BLOOD (POC) - CBC + DIFF - COMP METABOLIC PANEL - TSH BLD 3. Left sided numbness - ICD9: 782.0, ICD10: R20.0 Subjective. - GLUCOSE, BLOOD (POC) - CBC + DIFF - COMP METABOLIC PANEL - TSH BLD 4. Hyperglycemia - ICD9: 790.29, ICD10: R73.9 - HGB A1C 5. Anxiety - ICD9: 300.00, ICD10: F41.9 As above: trial Ativan. M Glen Medrano PA-C OPERATIVE REPORT Observed: 12/09/2017 Status: F Source: PEMAQUID 2:47 PM [facility] REPOSITORY [facility] Medical Records Department [address] [place] [address] Operative Report 12/09/17 1444 MR#: [id number] Acct: [id number] Name: SALEEM GARY Rep #: [id number] : 1980 37 From: Noe Lai MD PCP: Zeferino Leon MD Status: [facility] Location: [place] [address] Problem List (1) Degeneration of intervertebral disc of lumbosacral region Status: Chronic (2) Disc displacement, lumbar Status: Chronic (3) Radiculopathy of lumbosacral region Status: Chronic Report of Operation Date of Procedure: 12/09/17 Pre-Operative Diagnosis: Lumbosacral radiculopathy, lumbosacral degenerative disc disease, lumbar disc displacement Post-Operative Diagnosis: Lumbosacral radiculopathy, lumbosacral degenerative disc disease, lumbar disc displacement Surgery/Procedure Performed:: Diagnostic/therapeutic caudal epidural steroid injection Description of Surgical Findings:: PROCEDURE: Diagnostic/therapeutic caudal epidural steroid injection PREOPERATIVE DIAGNOSIS: Lumbosacral radiculopathy, lumbosacral degenerative disc disease, lumbar disc displacement POSTOPERATIVE DIAGNOSIS: Lumbosacral radiculopathy, lumbosacral degenerative disc disease, lumbar disc displacement ANESTHESIA: MAC COMPLICATIONS: None BLOOD LOSS: Minimal PROCEDURE IN DETAIL: History and physical today was reviewed. Risks and benefits of the procedure were explained. The patient understood, agreed to our procedure, and informed consent was obtained. IV inserted per routine protocol. The patient was taken to the operating room, placed in a prone position with a pillow positioned underneath the abdomen. Lower back and tailbone area was prepped and draped in a sterile fashion using iodine 3 under fluoroscopy guidance on the lateral view the caudal space was identified the skin and subcutaneous tissue and size approximately 3 cc of 1% lidocaine using a 25-gauge regular needle under direct visualization with fluoroscopy using a 22-gauge 3-1/2 inch spinal needle the needle was advanced via the skin through the sacral hiatus the peroneal passed through the sacrococcygeal ligament advanced approximately S4 area after negative aspiration for blood or CSF a total of 3 cc of contrast were injected to confirm correct placement of the needle as well as cephalad spread the spread was followed to approximately L5 area after confirmation AP as well as lateral view repeated negative aspiration a total of 15 cc of preservative-free 0.125% Marcaine with 80 mg of Depo-Medrol was injected easily. The needles were then removed intact. The patient experienced no signs or symptoms intrathecal, intravascular injection. The patient experienced no paraesthesia. The procedure was completed without any apparent difficult, any complication. The patient appeared to tolerate well. ASSESSMENT AND PLAN: This is a 37-year-old female with lumbosacral radiculopathy, lumbosacral degenerative disc disease, lumbar disc displacement status post diagnostic/therapeutic caudal epidural steroid injection. The patient will continue her current medications. The patient will follow in approximately 2 weeks for possible repeat of the procedure if indicated. 12/09/17 1447 <Electronically signed by Noe Lai MD> Date Noe Lai MD CC: Noe Dianne Leon MD Signed ,URINE Collected: 12/09/2017 Status: F Source: MORENO 12:10 PM [facility] REPOSITORY TYPE CODE TESTS RESULT OUT OF REFERENCE UNITS RANGE LAB L400.8000 Negative Normal HCGUQUAL Negative Result Comment: Very dilute urine specimens, as indicated by a low specific gravity, may not contain lifeline representatives levels of hCG. If is still suspected, a first morning urine specimen should be collected 48 hours later and tested. Performed By: #### L400.7600 #### [facility] [address] [place], [address] FLUOR GUIDANCE FOR Observed: 12/09/2017 Status: F Source: PEMAQUID SPINE INJ 3:06 AM [facility] REPOSITORY [facility] Imaging Services [address] [address] Fluor Guidance for Spine Inj MR#: [id number] Acct: [id number] Name: SALEEM GRAY Rep #: [id number] : 1980 F 37 From: Emiliano Gonzalez MD PCP: Zeferino Leon MD Status: [facility] Study: Fluor Guidance for Spine Inj Date of Exam: 12/09/17 Exam# [id number] Ordering Dr: Noe Lai MD PROCEDURE: Caudal block. DATE OF EXAMINATION: December 09, 2017. INDICATION: Female, 37 years old. Low back pain. FLUOROSCOPY TIME (if supplied): (0:06) minutes/seconds Intraoperative imaging provided for caudal block. RAD/Fluor Guidance for Spine Inj IMPRESSION: Intraoperative imaging provided for caudal block. Electronically Signed: Emiliano Gonzalez MD at 15:57 EST Tel [phone], Service support , CC: Noe Leon MD Stator Tester: Signed OFFICE VISIT REPORT Observed: 12/01/2017 Status: F Source: MORENO 11:53 PM [facility] REPOSITORY [facility] [address] [place] [address] OFFICE VISIT Date of Service: 10/14/17 MR#: [id number] Acct: [id number] Patient: SALEEM GRAY Rep #: [id number] : 1980 Provider: Amparo Hitchcock MD Age/Sex: 37/F [place] [facility] [place]: Signed Intake Vital Signs10/14/17 Weight: 264 lb Intake Visit Reasons: Weight Chck Chief Complaint: Patient here for weight check to have Adipex script refilled Allergies No Known Allergies Allergy (Verified 04/29/17 13:22) Medications Lorazepam [Ativan] 0.5 mg PO PRN PRN 10/27/13 [History Confirmed 11/07/17] Albuterol Inhaler [Ventolin Hfa (SP)] 1 - 2 puff INHALATION Q6H PRN PRN 10/27/15 [History Confirmed 11/07/17] Topiramate [Topamax] 25 mg PO BID 12/26/15 [History Confirmed 11/07/17] Naproxen [Naprosyn] 500 mg PO BID #10 tab 04/25/17 [Rx Confirmed 11/07/17] Diflunisal [Dolobid] 500 mg PO TID #21 tab 04/29/17 [Rx Confirmed 11/07/17] Tizanidine HCl [Zanaflex] 2 mg PO PRN PRN 04/29/17 [History Confirmed 11/07/17] Naproxen [Naprosyn] 500 mg PO BID PRN #20 tab 09/25/17 [Rx Confirmed 11/07/17] Nursing Note Patient here for weight check. 12/01/17 2942 <Electronically signed by Amparo Hitchcock MD> Date Amparo Hitchcock [facility] Signature: Date (if applicable) CC: ORTHOPEDIC VISIT Observed: 11/14/2017 Status: F Source: MORENO REPORT 8:19 AM [facility] REPOSITORY [facility] [address] [place] [address] OFFICE VISIT Date of Service: 11/13/17 MR#: [id number] Acct: [id number] Name: SALEEM GRAY Rep #: [id number] : 1980 Provider: Jackson Brown DO Age/Sex: 37/F Location: [facility] Status: Signed Intake Intake Visit Reasons: LOW BACK Allergies No Known Allergies Allergy (Verified 04/29/17 13:22) Medications Lorazepam [Ativan] 0.5 mg PO PRN PRN 10/27/13 [History Confirmed 11/07/17] Albuterol Inhaler [Ventolin Hfa (SP)] 1 - 2 puff INHALATION Q6H PRN PRN 10/27/15 [History Confirmed 11/07/17] Topiramate [Topamax] 25 mg PO BID 12/26/15 [History Confirmed 11/07/17] Naproxen [Naprosyn] 500 mg PO BID #10 tab 04/25/17 [Rx Confirmed 11/07/17] Diflunisal [Dolobid] 500 mg PO TID #21 tab 04/29/17 [Rx Confirmed 11/07/17] Tizanidine HCl [Zanaflex] 2 mg PO PRN PRN 04/29/17 [History Confirmed 11/07/17] Naproxen [Naprosyn] 500 mg PO BID PRN #20 tab 09/25/17 [Rx Confirmed 11/07/17] PFSH Medical History gall bladder removal (Acute) Surgical History H/O: (Acute) Family History Father Diabetes Social History Smoking Status: Never smoker alcohol intake: never substance use type: does not use caffeine: Yes what type of physical activity do you participate in: walking frequency: daily seatbelt use: always do you feel safe at home: Yes HPI LOW BACK: Details: SALEEM GRAY is a 37 year old F here today for f/u for her low back pain, patient states her restrictions are not really being followed and she is asked to do more lifting and thinks that is why her back pain is increasing. The gabapentin is helpful for the left leg radiating pain but neither that or the tramadol help the back pain. Patient is not able to find a true position of comfort. ROS Const Reports system reviewed and no additional complaints, except as docu Eyes Reports system reviewed and no additional complaints, except as docu ENT Reports system reviewed and no additional complaints, except as docu Card Reports system reviewed and no additional complaints, except as docu Resp Reports system reviewed and no additional complaints, except as docu GI Reports system reviewed and no additional complaints, except as docu Musc Reports back pain, Reports radiating pain into limb, Reports tingling, Reports body aches, Reports muscle weakness Skin/Breast Reports system reviewed and no additional complaints, except as docu Neuro Yes system reviewed and no additional complaints, except as docu, Yes tingling Psych Reports system reviewed and no additional complaints, except as docu Endo Reports system reviewed and no additional complaints, except as docu Ortho Exam Spine Details: Patient is alert and oriented 3 no distress with eye contact affect she does walk mild antalgic gait secondary her low back pain. Patient continues to have low back pain greatest across left and right to across the paraspinal musculature but no obvious spine step-off. She has pain with straight leg raise and contralateral straight leg raise with mild radicular symptoms down laterally. Otherwise EHL anterior gastrocsoleus peroneals quads and change appear to be 5 out of 5. Patient's previous MRI had been evaluated. Patient is currently awaiting epidural steroid injections because of labile Workmen's Comp. SPINE TESTING CERVICAL THORACIC LUMBAR Musculoskeletal Strength 0=absent - 5=normal Assessment AND Plan Problems 1. Strain of muscle, fascia and tendon of lower back, subsequent encounter S39.012D Plan Assessment: Low back strain low back pain and herniated disc. Plan: I continue to wait for view of severe Workmen's Comp. do the right thing to get epidural steroid injections this patient continues to be symptomatic. The patient would benefit from weight loss program but she also shows signs of radicular symptoms and herniation changes and/or annular changes she is not responding to conservative care from the epidurals and try to get pt on the right track because of [facility] is just wasting her time ans mine. same restrictions. 11/14/17 0819 <Electronically signed by Jackson Brown DO> Date Jackson Brown DO Mauricio Signature: Date (if applicable) CC: SEISMIC INTERPRETER OFFICE VISIT Observed: 11/07/2017 Status: F Source: MORENO REPORT 3:41 PM [facility] REPOSITORY [facility] [address] [place] [address] OFFICE VISIT Date of Service: 11/07/17 MR#: [id number] Acct: [id number] Name: SALEEM GRAY Rep #: [id number] : 1980 Provider: JEANNIE Aden Age/Sex: 37/F Location[place] [facility] [place] Status: Signed Intake Vital Signs11/07/17 Height 5 ft 7 in Intake Visit Reasons: STRING CHECK Is patient in pain?: Yes Allergies No Known Allergies Allergy (Verified 04/29/17 13:22) Medications Lorazepam [Ativan] 0.5 mg PO PRN PRN 10/27/13 [History Confirmed 11/07/17] Albuterol Inhaler [Ventolin Hfa (SP)] 1 - 2 puff INHALATION Q6H PRN PRN 10/27/15 [History Confirmed 11/07/17] Topiramate [Topamax] 25 mg PO BID 12/26/15 [History Confirmed 11/07/17] Naproxen [Naprosyn] 500 mg PO BID #10 tab 04/25/17 [Rx Confirmed 11/07/17] Diflunisal [Dolobid] 500 mg PO TID #21 tab 04/29/17 [Rx Confirmed 11/07/17] Tizanidine HCl [Zanaflex] 2 mg PO PRN PRN 04/29/17 [History Confirmed 11/07/17] Naproxen [Naprosyn] 500 mg PO BID PRN #20 tab 09/25/17 [Rx Confirmed 11/07/17] Patient : No PFSH Medical History gall bladder removal (Acute) Lumbar strain (Inactive) Surgical History H/O: (Acute) Family History Father Diabetes Social History Smoking Status: Never smoker alcohol intake: never substance use type: does not use caffeine: Yes what type of physical activity do you participate in: walking frequency: daily seatbelt use: always do you feel safe at home: Yes Pregancy History 1 Elective abortions Hx Para 1 Spontaneous abortions Past Pregnancies Del. DatName GA/WeeksOutcome Route [facility] Mer Chappell LgAnestheCAel LocaProviderFOB e ht en ia tn Unknown C-sectio8 lbs 6 [facility] 2 Jemma judge oz Marin e HPI STRING CHECK: Details: SALEEM GRAY is a 37 year old who presents for IUD check after replacement of bela IUD 10/03/17. Denies any vaginal bleeding or cramping. Exam External Female Exam: normal external appearance, normal appearance of the urethra Urethra: normal appearance of the urethra Speculum Exam - Vagina: normal appearance of the vagina, normal vaginal discharge Speculum Exam - Cervix: normal appearance of the cervix (IUD strings noted 3cm from os) Bimanual Exam- Vagina AND Uterus: normal bimanual exam, uterine size normal, uterine mobility normal, uterus non-tender Bimanual Exam- Adnexa, other: normal adnexae, adnexae non- tender, no adnexal masses Assessment AND Plan Problems 1. IUD check up Z30.[address] RTO annual exam, prn with problems 11/07/17 8561 <Electronically signed by Marisa THORNE> Date Marisa THORNE Cosigner Signature: Date (if applicable) CC: HOSP Observed: 10/23/2017 Status: COMPLETED Source: PRISCA 12:00 AM [facility] RE[facility]IT[facility] SALEEM GRAY ([id number]) 1980 F Date Time Provider Department 10/23/17 Krystle MEDRANO) FAMKentrellWS During your visit today, we recorded the following information about you: Bridget Leon Cma 10/24/2017 9:36 AM Signed Message from [place]: Original authorizing provider: JONNY Contreras would like a refill of the following medications: LORazepam (ATIVAN) 0.5 mg tab [Krystle Medrano PA-C] [facility] pharmacy: [facility] [place], [place] [id number] - [address] [facility] - [phone] [id number] Comment: Bridget Leon Cma 10/24/2017 9:40 AM Signed Patient has been identified by name and date of : Yes RX INSTRUCTIONS: Patient aware RX will be sent to pharmacy. No need to notify patient. Last visit 10/07 No future visit Last filled 10/01 15 with 0 Bridget Leon MD 10/24/2017 12:37 PM Signed oarrs done. Since since still on tramadol. Not really supposed to be having both prescribed. Taper off use of lorazepam. Juliana Barkley Ma 10/24/2017 2:01 PM Signed The following prescriptions have been approved and faxed to [facility]: Signed Prescriptions Disp Refills LORazepam (ATIVAN) 0.5 mg tab 10 tablet 0 Sig: Take 1 tablet by mouth once daily as needed (anxiety) for up to 30 days. THIERRY Class: C-IV CRISTINA: No Authorizing Provider: ZEFERINO LEON Ma Allergies As of Date: 10/23/2017 (No Known Allergies) Date Reviewed: 10/07/2017 Reviewed by: Juliana Barkley Ma - Fully Assessed Reason for Visit: Refill Request [94] Visit Diagnosis:Anxiety [F41.9] Order(s):LORazepam (ATIVAN) 0.5 mg tabTake 1 tablet by mouth once daily as needed (anxiety) for up to 30 days.Disp: 10 tabletRfl: 0 Prescriptions as of 10/23/2017 Sig: LORAZEPAM 0.5 MG TABLET Take 1 tablet by mouth once d* TIZANIDINE 4 MG TABLET Take 1 tablet by mouth every * ALBUTEROL SULFATE HFA 90 MCG/* Inhale 2 Puffs as instructed * GABAPENTIN 300 MG CAPSULE Take 300 mg by mouth three ti* TOPIRAMATE XR 200 MG CAPSULE,* Take 1 capsule by mouth once * LEVONORGESTREL 14 MCG/24 HOUR* 1 Each by INTRAUTERINE route * * VITAMIN,CALCIUM,MINE* Take 1 tablet by mouth once d* Problem List As Of Date 10/23/2017 Noted Resolved SUPERVIS NORMAL 1ST PREG [Z34.00] INVALID FOR*07/02/2006 TRANS HYPERTEN-ANTEPART [O13.9] INVALID FOR*07/02/2006 KERATOSIS PILARIS////SKIN ANOMALY NEC [Q82.8] INVALID FOR*01/23/2010 Other Acne [L70.8] INVALID FOR* FOLLICULITIS///HAIR DISEASES NEC [L73.8] INVALID FOR*01/23/2010 Lichenification and Lichen Simplex Chronicus [L*INVALID FOR*01/23/2010 DERMATOFIBROMA///BENIGN KAILEY SKIN ARM [D23.60] INVALID FOR*01/23/2010 Contact Dermatitis and Other Eczema, due to Uns*INVALID FOR*01/23/2010 SACROILIITIS [M46.1] INVALID FOR*01/23/2010 Routine general medical examination at a health*INVALID FOR*12/06/2012 Class: Chronic More... Routine gynecological examination [Z01.419] INVALID FOR*02/22/2014 Class: Chronic Morbid Obesity [E66.01] INVALID FOR* Lumbar Disc Disorder [M51.9] INVALID FOR* More... Routine general medical examination at a health*INVALID FOR*02/22/2014 Anxiety [F41.9] INVALID FOR* Prescriptions ordered this encounter Disp Refills Start End LORAZEPAM 0.5 MG TABLET 10 t* 0 10/24/2017 11/23/2017 Class: Print RX Route: ORAL Sig: Take 1 tablet by mouth once daily as needed (anxiety) for up to 30 days. Medications Discontinued During This Encounter LORazepam (ATIVAN) 0.5 mg tab 15 t* 0 10/01/2017 10/24/2017 Class: Print RX Route: ORAL Sig: Take 1 tablet by mouth once daily as needed (anxiety). Disc: Reason for discontinue is not on file. Encounter Status:Closed by JULIANA BARKLEY MA on 10/24/17 ALLERGIES ALLERGIES DATE TYPE / CODE NAME / CODE REACTION SEVERITY SOURCE 09/30/2018 Drug No Known Unknown [facility] Allergy/416 Allergies/G54983 Hospital 638878(SNOM 0388(RXNORM) Repository ED CT) Drug NO [facility] Class/99796 ALLERGIES [facility] 1003(SNOMED Repository CT) ENCOUNTERS ENCOUNTERS ADMIT/DISCHARGE ACCOUNT ADMITTING ENCOUNTER LOCATION SOURCE NUMBER CLASS 09/30/2018/09/30/20 [id number] Emergency [address] ing:ED Repository 09/30/2018 [id number] Ambulatory [facility] ing:LAB.FUTUR Repository E 09/29/2018/09/30/20 [id number] Ambulatory [address] Repository 09/18/2018 [id number] General acute hospital ing:DC Repository 08/28/2018/09/03/[id number] ing:DC Repository 08/21/2018/08/22/20 [id number] Ambulatory [address] Repository 07/25/2018 [id number] Ambulatory [facility] ing:LAB.FUTUR Repository E 07/24/2018 [id number] General acute hospital ing:LAB Repository 07/23/2018/07/23/20 [id number] Ambulatory BMSBuilding:[address] Repository 07/22/2018/07/23/20 [id number] [facility], [address] ing:PCURoom: Repository [id number]: 1 07/22/2018 [id number] [place], Ambulatory BMSBuilding:[address] [place].[facility] Hospital Repository 07/22/2018 [id number] [facility], Ambulatory BMSBuilding:[place].[facility] Hospital Repository 07/21/2018/07/22/20 [id number] Ambulatory [address] Repository 07/15/2018 [id number] Ambulatory [facility] Hospital ing:LAB.FUTUR Repository E 07/04/2018 [id number] Ambulatory [facility] Hospital ing:EMPH Repository 06/10/2018 [id number] Ambulatory BMSBuilding:[place] Repository 06/03/2018/06/04/20 [id number] Ambulatory [address] Repository 05/26/2018 [id number] Ambulatory [facility] Hospital ing:LABSPEC Repository 05/26/2018/05/26/20 [id number] Ambulatory BMSBuilding:[address] [place] [address] [place].[facility] Hospital Repository 05/26/2018/05/26/20 [id number] Ambulatory BMSBuilding:[place] [address] [place].[facility] Repository 05/01/2018 [id number] Ambulatory [facility] Hospital ing:RAD Repository 05/01/2018/05/02/20 [id number] Ambulatory [address] Repository 03/10/2018/03/11/20 [id number] Ambulatory [address] Repository 03/09/2018/03/09/20 [id number] [facility] [address] [facility] Repository 02/03/2018/02/04/20 [id number] [facility] [address] [facility] ing[facility]SDC Repository 12/27/2017/12/27/19 [id number] Ambulatory BMSBuilding:[address] [place] [address] [place] Repository 12/13/2017 [id number] Ambulatory [facility] Hospital ing:CT Repository 12/13/2017 [id number] Ambulatory [facility] Hospital ing:LAB Repository 12/13/2017/12/13/19 [id number] Ambulatory [address] Repository 12/09/2017/12/09/19 [id number] Ambulatory [place] [facility] ing:SDCRoom: Repository AC20 11/13/2017/11/13/19 [id number] Ambulatory BMSBuilding:B [place] [facility] Repository 11/07/2017/11/07/19 [id number] Ambulatory BMSBuilding:B [place] 18 [facility] Repository 10/14/2017/10/14/20 [id number] Ambulatory BMSBuilding:[address] [place] [address] [facility] Repository PAYERS PAYERS ENCOUNTER GUARANTOR PAYER SUBSCRIBER SOURCE 09/30/2018 LORILIE B Primary LORILIE B [place] [id number] Insurance:[facility] BENNETTDOB: [facility] [id number] Number: Repository [address]Wfv: ([phone] [id number] [phone] (HP) Date:3030-15-27[address], [place] [address]EQ: 09/30/2018 Secondary LORILIE B [place] Insurance:[facility] MUTUAL BENNETTDOB: [facility] [id number] Hospital Number: Repository [id number] Date:0152-67-92[address], [place] [address]EO: CHECK WEBSITE 09/30/2018 Tertiary NOT GIVENUNK [place] Insurance:SELF PAY [facility] Number: Effective Repository Date:2018-09-30 09/30/2018 LORILIE B Primary Insurance:[facility] LORILIE B [place] [id number] [facility] [id number] Number: Repository 48662Ncl: (093) [id number] [phone] (HP) Date:1695-86-07XZ [address] [address]NQGMUFZWP, [place] [address]BL: CHECK WEBSITE 09/30/2018 Secondary NOT GIVENUNK [place] Insurance:SELF PAY [facility] Number: Effective Repository Date:2018-07-28 09/18/2018 LORILIE B Primary Insurance:[facility] LORFOREIGNE Ivan [place] [id number] [facility] BENNET[facility]: [facility] KARTHIK PAZ [facility] [id number] Number: Repository [address]Nkv: 330 [id number] [phone] () Date:3333-65-24KB [address] [address]CIPBEQOOF, [place] [address]WH: CHECK WEBSITE 09/18/2018 Secondary NOT GIVENUNK [place] Insurance:SELF PAY [facility] Number: Effective Repository Date:2018-09-04 08/28/2018 LORILIE B Primary Insurance:[facility] LORILIE B Moreno [id number] [facility] BENNETTDOB: [facility] CORPORATIONNevaeh BYRNEMohawk [facility] Psych[facility] [id number] Number: Repository [address]Axy: 330 [id number] [phone] () Date:0197-79-70KY [address] [address]TVKAKADVX, [place] [address]FC: CHECK WEBSITE 08/28/2018 Secondary NOT GIVENUNK [place] Insurance:SELF PAY [facility] Number: Effective Repository Date:2018-08-13 07/25/2018 LORILIE B Primary Insurance:[facility] JEMMAE Ivan [place] [id number] [facility] BENNETTDOB: [facility] KARTHIK BYRNEMohawk Valley Psychiatric [facility] [id number] Number: Repository [address]Xtq: 330 [id number] [phone] () Date:5865-86-54YV [address] [address]UELGQNRJO, [place] [address]FW: CHECK WEBSITE 07/25/2018 Secondary NOT GIVENUNK [place] Insurance:SELF PAY [facility] Number: Effective Repository Date:2018-07-25 07/24/2018 LORILIE B Primary Insurance:[facility] LORFOREIGNE B [place] [id number] [facility] BENNETTDOB: [facility] CORPORATIONNevaeh BYRNEMohawk [facility] Psych[facility] [id number] Number: Repository [address]Diz: 330 [id number] [phone] () Date:2088-18-58VP [address] [address]MJRXRCPSD, [place] [address]VC: CHECK WEBSITE 07/24/2018 Secondary NOT GIVENUNK [place] Insurance:SELF PAY [facility] Number: Effective Repository Date:2018-07-24 07/23/2018 LORILIE B Primary Insurance:[facility] LORILIE B [place] [id number] [facility] BENNETTDOB: [facility]ORMAND[facility] DRAP[facility] SERVICESBarn[facility] [id number] Number: Repository [address]Ohc: 330 [id number] [phone] () Date:1294-81-31ZL [address] [address]NUHNFOCKM, [place] [address]BU: CHECK WEBSITE 07/23/2018 Secondary NOT GIVENUNK [place] Insurance:SELF PAY [facility] Number: Effective Repository Date:2018-07-23 07/22/2018 LORILIE B Primary Insurance:[facility] LORILIE B More[place] [id number] [facility] BENNET[facility]OB: [facility] NORMANDY DRAPT SERVICESBarnes-[facility] [id number] Number: Repository [address]Jsz: 330 [id number] [phone] () Date:5838-80-51IB [address] [address]CTXNSLZKG, [place] [address]ES: CHECK WEBSITE 07/22/2018 Secondary NOT GIVENUNK [place] Insurance:SELF PAY [facility] Number: Effective Repository Date:2018-07-22 07/22/2018 LORILIE B Primary Insurance:[facility] LORILIE B [place] [id number] [facility] BENNETTDOB: [facility] NORMANDY DRAPT SERVICESBarnes-[facility] [id number] Number: Repository [address]Ule: 330 [id number] [phone] () Date:0706-26-78HF [address] [address]WOIEJLHNK, [place] [address]BU: CHECK WEBSITE 07/22/2018 Secondary NOT GIVENUNK [place] Insurance:SELF PAY [facility] Number: Effective Repository Date:2018-07-22 07/22/2018 LORILIE B Primary Insurance:[facility] SALEEM Love [place] [id number] [facility] BENNETTDOB: [facility] KARTHIK BYRNEMohawk [facility] Psych[facility] [id number] Number: Repository [address]Qmt: 330 [id number] [phone] () Date:7030-50-35AG [address] [address]TZMBRHZQX, [place] [address]SB: CHECK WEBSITE 07/22/2018 Secondary NOT GIVENUNK [place] Insurance:SELF PAY [facility] Number: Effective Repository Date:2018-07-22 07/15/2018 LORILIE B Primary Insurance:[facility] SALEEM Love [place] [id number] [facility]: [facility] KARTHIK BYRNEMohawk [facility] Psychiatric [facility] [id number] Number: Repository [address]Qqw: 330 [id number] [phone] () Date:0537-81-53QZ [address] [address]ZAXUPBSLA, [place] [address]LB: CHECK WEBSITE 07/15/2018 Secondary NOT GIVENUNK [place] Insurance:SELF PAY [facility] Number: Effective Repository Date:2018-07-08 07/04/2018 LORILIE B Primary NOT GIVENUNK [place] [id number] Insurance:SELF PAY [address] Number: Effective Repository [address]Wyg: 330) Date:2018-07-04 [phone] () 06/10/2018 LORILIE B Primary Insurance:[facility] SALEEM Love More[place] [id number] [facility] BENNETTDOB: [facility] KARTHIK BYRNEM[facility] Psych[facility] [id number] Number: Repository [address]Nzj: 330 [id number] [phone] () Date:6100-45-23YR [address] [address]NPUMPQYVL, [place] [address]EW: CHECK WEBSITE 06/10/2018 Secondary NOT GIVENUNK [place] Insurance:SELF PAY [facility] Number: Effective Repository Date:2018-05-30 05/26/2018 LORILIE B Primary Insurance:[facility] JEMMAE Ivan [place] [id number] [facility] BENNETTDOB: [facility] KARTHIK BYRNEMoh[facility] Psych[facility] [id number] Number: Repository [address]Ted: 330 [id number] [phone] () Date:1956-17-84FS [address] [address]BRJTRMGTI, [place] [address]DX: CHECK WEBSITE 05/26/2018 Secondary NOT GIVENUNK [place] Insurance:SELF PAY [facility] Number: Effective Repository Date:2018-05-26 05/26/2018 LORILIE B Primary Insurance:[facility] LORILIE Ivan [place] [id number] [facility] BENNETTDOB: [facility] [id number] Number: Repository [address]Toi: 330 [id number] [phone] () Date:6776-77-83RT [address] [address]KCYCCQIPJ, [place] [address]OT: CHECK WEBSITE 05/26/2018 Secondary NOT GIVENUNK [place] Insurance:SELF PAY [facility] Number: Effective Repository Date:2018-05-26 05/26/2018 LORILIE B Primary Insurance:[facility] LORILIE Iavn [place] [id number] [facility] BENNETTDOB: [facility] CORPORATIONNevaeh BYRNEMohawk [facility] Psych[facility] [id number] Number: Repository [address]Igq: 330 [id number] [phone] () Date:6751-28-51FX [address] [address]YYUKGEBFA, [place] [address]DU: CHECK WEBSITE 05/26/2018 Secondary NOT GIVENUNK [place] Insurance:SELF PAY [facility] Number: Effective Repository Date:2018-05-26 05/01/2018 LORILIE B Primary Insurance:[facility] JEMMAE B [place] [id number] [facility] BENNETTDOB: [facility] [id number] Number: Repository [address]Xtc: 330 [id number] [phone] () Date:9066-17-58RW [address] [address]JCHCUNNKX, [place] [address]TN: CHECK WEBSITE 05/01/2018 Secondary NOT GIVENUNK [place] Insurance:SELF PAY [facility] Number: Effective Repository Date:2018-05-01 03/09/2018 LORILIE B Primary Insurance:[facility] SALEEM Mayer [id number] [facility] BENNETTDOB: [facility] NORMANDY [address] SERVICESBarnes-[facility] [id number] Number: Repository [address]Bej: 330 [id number] [phone] () Date:7266-32-18NW [address] [address]DZNZSWJDG, [place] [address]RP: CHECK WEBSITE 03/09/2018 Secondary NOT GIVENUNK [place] Insurance:SELF PAY [facility] Number: Effective Repository Date:2018-03-09 02/03/2018 LORILIE B Primary Insurance:[facility] SALEEM Monsonoster [id number] [facility]ATIONNETTDOB: [facility] NORMANDNevaeh BYRNEKANE [facility] RES[facility] SSD SERVICESBarnes-Kass[facility] [id number] Number: Repository [address]Tjb: 330 [id number] [phone] () Date:5299-00-30YP [address] [address]YSPZCYWVG, [place] [address]PU: CHECK WEBSITE 02/03/2018 Secondary NOT GIVENUNK [place] Insurance:SELF PAY [facility] Number: Effective Repository Date:2018-01-27 12/27/2017 [place] Primary Insurance:[facility] SALEEM Mayer [id number] [facility] JUSTINY APT SERVICESBarnes-[facility] [id number] Number: Repository [address]Xbh: 330 [id number] [phone] () Date:9173-42-39IB [address] [address]XDLOGUGSE, [place] [address]QG: CHECK WEBSITE 12/27/2017 Secondary NOT GIVENUNK [place] Insurance:SELF PAY [facility] Number: Effective Repository Date:2017-12-26 12/13/2017 [place] Primary Insurance:[facility] SALEEM [id number] [facility] BENNETTDOB: [facility] KARTHIK PAZ [facility] [id number] Number: Repository [address]Aqc: 330 [id number] [phone] () Date:1735-21-32MX [address] [address]BWZPHHMJR, [place] [address]DQ: CHECK WEBSITE 12/13/2017 Secondary NOT GIVENUNK [place] Insurance:SELF PAY [facility] Number: Effective Repository Date:2017-12-13 12/13/2017 [place] Primary Insurance:[facility] SALEEM [id number] [facility] BENNETTDOB: [facility] CORPORATIONNevaeh BYRNEMohawk [facility] Psychiatric Center [id number] Number: Repository [address]Ivg: 330 [id number] [phone] () Date:7852-77-87EI [address] [address]TUVCGPOGU, [place] [address]DG: CHECK WEBSITE 12/13/2017 Secondary NOT GIVENUNK [place] Insurance:SELF PAY [facility] Number: Effective Repository Date:2017-12-13 12/09/2017 [place] Primary Insurance:[facility] SALEEM [id number] [facility] BENNETTDOB: [facility] [id number] Number: Repository [address]Cck: 330 [id number] [phone] () Date:5824-92-12RW [address] [address]APFWGLLOU, [place] [address]GE: CHECK WEBSITE 12/09/2017 Secondary NOT GIVENUNK [place] Insurance:SELF PAY [facility] Number: Effective Repository Date:2017-12-03 11/13/2017 [place] Primary NOT GIVENUNK [place] [id number] Insurance:SELF PAY [address] Number: Effective Repository [id number]: 330) Date:2017-11-14 [phone] () 11/07/2017 [place] Primary Insurance:[facility] SALEEM [facility] BENNETTDOB: [facility] [id number] Number: Repository [address]Hni: ([phone]) [id number] [phone] () Date:4858-61-67CP [address] [address]PCGJVSWFI, [place] [address]OX: CHECK WEBSITE 11/07/2017 Secondary NOT GIVENUNK [place] Insurance:SELF PAY [facility] Number: Effective Repository Date:2017-10-06 10/14/2017 [place] Primary NOT GIVENUNK [place] [id number] Insurance:SELF PAY [address] Number: Effective Repository [phone]: 330) Date:2017-10-14 [phone] ()
== END ==
PROVIDERS: Family Provider Family Medicine; PCP Family Medicine; Referring Provider Family Medicine; Visit Provider Family Medicine
DX: E11.9 Type 2 diabetes mellitus without complications (principal); R80.9 Proteinuria, unspecified
CPT/HCPCS: 36415; 82043; 82570; 83036

== ENCOUNTER 2018-09-30 14:45 | Emergency (ER) | payer OTHER, SELFPAY ==
[2018-09-30 14:45] VITALS: BMI 44.0
[2018-09-30 14:46] VITALS: BP 162/98; PULSE 76; RESP 14; TEMP 36.7; O2SAT 95; BMI 43.7
--- NOTE | 2018-09-30 15:14 | ED.VISSUMM ---
- ER Visit Summary Date of Service: 09/30/18 Chief Complaint: Workmen's Comp. injury History of Present Illness: The patient is a 38 F who was cleaning her room today when a shelf fell striking the left side of her body particularly the left forearm/elbow as well as the left knee and foot. She is able to ambulate. Full range of motion. She states that her middle ring and little finger feels swollen and tingly. Physical Examination: Afebrile vital signs stable Gen: Well-nourished well-developed Head: Normocephalic atraumatic Eyes: Perrl EOMI ENT: TMs clear no rhinorrhea moist mucous membranes Neck: Supple no lymphadenopathy no JVD nontender CVS: Regular rate rhythm no murmurs normal S1-S2 Respiratory: No distress clear to auscultation bilaterally chest nontender Abdomen: Soft nontender nondistended normal bowel sounds no masses Back: Nontender Extremity: Tender palpation over the left proximal forearm posteriorly and proximal wrist. Full pronation supination. Full extension and flexion at the elbow joint. There are vascular intact. There is small contusion noted over the lateral inferior knee. No joint effusion. Full extension and flexion. Ligaments are stable. Skin: Normal color no rash Neuro: alert orientated ?3 CN II-XII intact normal strength sensation reflexes gait cerebellar Psych: Normal affect normal mood Test Results: Forearm films were obtained. These were negative for fracture. Emergency Department Course and Treatment: Patient will be discharged home with supportive care. Tylenol or ibuprofen for pain. Ice. Follow-up with corporate care if not improved Impression: 1. Left forearm contusion 2. Left knee contusion This note was generated with [employer] dictation software. It may contain incorrect words, spelling, and punctuation that were not noted in review of the chart prior to signing ED Disposition - Plan for ED Patient: Disposition: Home or Assisted Living Chief Complaint: Upper Extremity Injury Instructions: ED Contusion Soft Tissue Referrals: [facility] [GROUP OF PHYSICIANS] - 1 Week if not improving
--- NOTE | 2018-09-30 15:30 | RAD_ITS ---
STUDY: X-RAY - LEFT RADIUS AND ULNA REASON FOR EXAM: Female, 38 years old. Pain following injury. TECHNIQUE: 2 view(s) of the forearm. COMPARISON: None. FINDINGS: There is no demonstrated soft tissue swelling. Normal visualized radius. Normal visualized ulna. RAD/Forearm 2 Views IMPRESSION: Normal x-ray examination of the radius and ulna. Electronically Signed: Emiliano Gonzalez MD at 15:52 EST Tel [phone], Service support ,
[2018-09-30 15:51] VITALS: BP 143/71; PULSE 68; RESP 14; O2SAT 97
--- OUTSIDE RECORDS SUMMARY | 2018-11-26 08:20 | XMS RPT_ITS ---
:1980 Author Organization OHIP Support Name Relationship Address Phone CORDELIA NYE Unavailable VANESSA REAR + [place] [address] [facility] Unavailable [address] + [place] [address] PARRIS CORDELIA Unavailable VANESSA REAR + [place] [address] [facility] Unavailable [address] + [place] [address] PARRIS CORDELIA Unavailable VANESSA REAR + [place] [address] [facility] Unavailable [address] + [place] [address] PARRIS CORDELIA Unavailable VANESSA REAR + [place] [address] [facility] Unavailable [address] + [place] [address] PARRIS CORDELIA Unavailable VANESSA REAR + [place] [address] [facility] Unavailable [address] + [place] [address] NYE, CORDELIA Unavailable VANESSA REAR + [place] [address] [facility] Unavailable [address] + [place] [address] PARRIS CORDELIA Unavailable VANESSA REAR + [place] [address] [facility] Unavailable [address] + [place] [address] NYE, CORDELIA Unavailable VANESSA REAR + [place] [address] [facility] Unavailable [address] + [place] [address] NYE, CORDELIA Unavailable VANESSA REAR + [place] [address] [facility] Unavailable [address] + [place] [address] NYE, CORDELIA Unavailable VANESSA REAR + [place] [address] [facility] Unavailable [address] + [place] [address] NYE, CORDELIA Unavailable VANESSA REAR + [place] [address] [facility] Unavailable [address] + [place] [address] NYE, CORDELIA Unavailable VANESSA REAR + [place] [address] [facility] Unavailable [address] + [place] [address] NYE, CORDELIA Unavailable VANESSA REAR + [place] [address] [facility] Unavailable [address] + [place] [address] NYE, CORDELIA Unavailable VANESSA REAR + [place] [address] [facility] Unavailable [address] + [place] [address] NYE, CORDELIA Unavailable VANESSA REAR + [place] [address] [facility] Unavailable [address] + [place] [address] NYE, CODRELIA Unavailable VANESSA REAR + [place] [address] [facility] Unavailable [address] + [place] [address] NYE, CORDELIA Unavailable VANESSA REAR + [place] [address] [facility] Unavailable [address] + [place] [address] KRYSTA GRAY Unavailable [address] [place] [address] [facility] Unavailable [address] + [place] [address] GRAY, KRYSTA Unavailable [address] [place] [address] [facility] Unavailable [address] + [place] [address] GRAY, KRYSTA Unavailable [address] + [address] [place] [address] [facility] Unavailable [address] + [place] [address] GRAY, KRYSTA Unavailable Unavailable + [place] [address] [facility] Unavailable [address] + [place] [address] GRAY, KRYSTA Unavailable Unavailable + [place] [address] [facility] Unavailable [address] + [place] [address] GRAY, KRYSTA Unavailable Unavailable + [place] [address] [facility] Unavailable [address] + [place] [address] GRAY, KRYSTA Unavailable [address] [place] [address] [facility] Unavailable [address] + [place] [address] GRAY, KRYSTA Unavailable [address] + [address] [place] [address] [facility] Unavailable [address] + [place] [address] GRAY, KRYSTA Unavailable [address] + [address] [place] [address] [facility] Unavailable [address] + [place] [address] Care Team Providers Name Role Phone Krystle MEDRANO (TREC) Attending Unavailable ZEFERINO LEON Attending Unavailable CINDY EDOUARD (EMPLOYEE BENEFITS ATTORNEY) Attending Unavailable Krystle MEDRANO (TREC) Attending Unavailable ZEFERINO LEON Attending Unavailable ZEFERINO LEON Attending Unavailable Krystle MEDRANO (PA-C) Attending Unavailable Marisa Aden Attending Unavailable Carolyn, Zeferino Referring Unavailable Carolyn, Zeferino Primary Care Unavailable Jackson Brown Attending Unavailable Carolyn, Zeferino Referring Unavailable Betances, Zeferino Primary Care Unavailable Noe Lai Attending Unavailable Ming, Noe Referring Unavailable Betances, Zeferino Primary Care Unavailable Krystle Medrano Attending Unavailable Krystle Medrano Referring Unavailable Carolyn, Zeferino Primary Care Unavailable Krystle Medrano Attending Unavailable Betances, Zeferino Primary Care Unavailable Jackson Brown Attending Unavailable Betances, Zeferino Referring Unavailable Carolyn, Zeferino Primary Care Unavailable Noe Lai Attending Unavailable Carolyn, Zeferino Primary Care Unavailable Ming, Noe Referring Unavailable Betances, Zeferino Primary Care Unavailable Hermelindo Gauthier Attending Unavailable , RUMA Attending Unavailable RUMA RETANA Referring Unavailable Betances, Zeferino Primary Care Unavailable Bibiana Campbell D.C. Attending Unavailable Betances, Zeferino Referring Unavailable Betances, Zeferino Primary Care Unavailable Santana Yoon Attending Unavailable Betances, Zeferino Referring Unavailable Carolyn, Zeferino Primary Care Unavailable Santana Yoon Attending Unavailable Santana Yoon Referring Unavailable Bibiana Campbell D.C. Attending Unavailable Carolyn, Zeferino Referring Unavailable ASSESSMENT, HEALTH RISK Attending Unavailable ASSESSMENT, HEALTH RISK Referring Unavailable Betances, Zeferino Primary Care Unavailable Betances, Zeferino Attending Unavailable Carolyn, Zeferino Primary Care Unavailable Betances, Zeferino Referring Unavailable Carolyn, Zeferino Primary Care Unavailable Cade, Yayo Admitting Unavailable Woody Rebolledo Attending Unavailable Cade, Yayo Admitting Unavailable Cade, Yayo Attending Unavailable Carolyn, Zeferino Primary Care Unavailable Cade, Yayo Consulting Unavailable Cade, Yayo Admitting Unavailable Woody Rebolledo Attending Unavailable Carolyn, Zeferino Primary Care Unavailable JoWoody camarena Consulting Unavailable Betances, Zeferino Attending Unavailable Betances, Zeferino Referring Unavailable Betances, Zeferino Primary Care Unavailable Carolyn, Zeferino Attending Unavailable Betances, Zeferino Primary Care Unavailable Carolyn, Zeferino Attending Unavailable Betances, Zeferino Primary Care Unavailable Carolyn, Zeferino Referring Unavailable Betances, Zeferino Attending Unavailable Carolyn, Zeferino Primary Care Unavailable Everette Villalpando Attending Unavailable Cade, Yayo Referring Unavailable Carolyn, Zeferino Attending Unavailable Betances, Zeferino Primary Care Unavailable Betances, Zeferino Primary Care Unavailable Everette [place] Attending Unavailable Amparo Hitchcock Attending Unavailable Carolyn, Zeferino Referring Unavailable Betances, Zeferino Primary Care Unavailable PROBLEMS PROBLEMS DATE TYPE CONDITION / CODE ATTENDING STATUS SOURCE 09/17/2018 Unknown E11.9 - Type 2 Zeferino Leon Active [place] diabetes mellitus Formerly [facility] without Hospital complications / Repository E11.9(ICD-10) 05/27/2018 Unknown R35.0 - Frequency of Santana Yoon Active [place] micturition / [facility]ly [facility] R35.0(ICD-10) Hospital Repository 05/27/2018 Unknown M54.17 - Dossidinh, Bibiana Active 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 / Repository M51.37(ICD-10) 05/01/2018 Unknown R07.81 - Pleurodynia RUMA RETANA Active [facility] / R07.81(ICD-10) [facility] Hospital Repository 12/13/2017 Unknown R20.0 - Anesthesia Krystle Medrano Active [facility] of skin / [facility] R20.0(ICD-10) Hospital Repository 11/25/2017 Unknown Z30.431 - Encounter Marisa Aden Active [facility] for routine checking [facility] contraceptive device Repository / Z30.431(ICD-10) PROCEDURES PROCEDURES No Procedure Records FoundRESULTS RESULTS EMERGENCY DEPARTMENT Observed: 09/30/2018 Status: F Source: [place] SUMMARY 3:59 PM [facility] REPOSITORY [facility] Medical Records Department [address] [place] [address] Emergency Department Summary 09/30/18 1514 MR#: [id number] Acct: [id number] Name: SALEEM GRAY Ivan Rep #: [id number] : 1980 38 From: Everette [place] DO [...] knee contusion This note was generated with iPowow dictation software. It may contain incorrect words, [...] your Primary Care Provider. Call [facility] ([phone]) or report to the closest Emergency Room. Call 911 if necessary. 09/30/18 1551 <Electronically signed by Everette [place] DO> Date Everette [place] DO Cosigner Signature (If Indicated): Date CC: Zeferino Leon MD FOREARM 2 VIEWS Observed: 09/30/2018 Status: F Source: [place] 3:13 PM [facility] REPOSITORY [facility] Imaging Services [address] [place] [address] Forearm 2 Views MR#: [id number] Acct: [id number] Name: SALEEM GRAY Rep #: [id number] : 1980 F 38 From: Emiliano [place] MD PCP: Zeferino Leon MD Status: DEP ER Study: Forearm 2 Views Date of Exam: 09/30/18 Exam# [id number] Ordering Dr: Everette [place] DO STUDY: X-RAY [...] Emiliano [place] MD at 15:52 EST Tel [phone], Service support , CC: Everette [place] DO; Zeferino Leon MD Floor Supervisor: Signed MICROALB:CREAT Collected: 09/30/2018 Status: F Source: [place] RATIO,RANDOM UR 9:07 AM [facility] TYPE CODE TESTS RESULT OUT OF RANGE REFERENCE UNITS LAB L501.1200 NO RANGE EST. mg/dL Normal UR CREAT 123.00 LAB L502.0500 NO RANGE EST. mg/L Normal 730.0 MICROALBUMIN ,UR LAB L502.0600 <30 mg/g CRE mg/g CRE High 593.5 MALB:CREAT Performed By: #### L502.0250 #### [facility] [address] [place], [address] HEMOGLOBIN A1C Collected: 09/30/2018 Status: F Source: [place] 9:07 AM [facility] TYPE CODE TESTS RESULT OUT OF RANGE REFERENCE UNITS LAB L501.9985 4.2-6.3 % Normal HGB A1C 6.2 Performed By: #### L501.9985 #### [facility] [address] [place], [address] PROGRESS Observed: 09/29/2018 Status: COMPLETED Source: [place] 4:18 PM [facility] [place] REPOSITORY HNO ID: [id number] Author: Krystle Carroll (PaReneeC) Mitchell Service: (none) Author Type: Physician Radiator Mechanic Type: Progress Notes Filed: 09/29/2018 10:11 PM Note Text: 38 year old female with c/o 1. 4 month anniversary of father's . Feeling sad. Feels crazy difficulty sleeping, tearful, irizarry. Ativan helps; uses minimally. Paxil helps significantly. 2. 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 Disp: Rfl: 0 COMPOUNDED PRESCRIPTION Urine microalbumin. [id number]: DMIIDo in six to eight weeks Disp: [...] JONNY Contreras Observed: 09/29/2018 Status: COMPLETED Source: [place] 3:00 PM [facility] REPOSITORY Office Visit (FAMPWS) SALEEM GRAY ([id number]) 1980 F Date Time Provider Department 09/29/18 [...] minimally. Paxil helps significantly. 2. 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 Disp: Rfl: 0 COMPOUNDED PRESCRIPTION Urine microalbumin. [id number]: DMIIDo in six to eight weeks Disp: [...] 09/29/18 PROGRESS Observed: 08/21/2018 Status: COMPLETED Source: [place] 2:59 PM [facility] HNO ID: [id number] Author: Zeferino Leon Service: (none) Author Type: [...] spells: No. Watching diet: Scheduled to see installer helper in a couple weeks . Unexpected weight loss: No. Polyuria, polydipsia: No. Vision Changes: No, getting better since controlling sugars Foot lesions or numbness or pain: Left foot numb and tingling She met with diabetic nurse at [facility]. Having her keep a food log and [...] only. Bela: new one placed on 10/03/17 Zvslyfwv-Cu-Hbb-Fe-FA ( FORMULA) ORAL Tab Take 1 tablet [...] Relation Age of Onset - Heart Father RI - Heart Paternal Grandmother TRIPLE BYPASS SURGERY - Cancer Maternal Grandmother LUNG CANCER - Cancer Father PANCREATIC CANCER - Diabetes Maternal Grandfather - Diabetes Father - Alcohol/Drug Mother Social History Marital status: Single Spouse name: Years of education: 12 Number of children: 1 Occupational History Occupation Employer Comment [employer]* [employer] Student Social History Main Topics Smoking status: [...] MD CNOV Observed: 08/21/2018 Status: COMPLETED Source: [place] 2:40 PM [facility] REPOSITORY Office Visit (FAMPWS) SALEEM GRAY ([id number]) 1980 F Date Time Provider Department 08/21/18 2:40 PM [facility] During your visit today, we recorded the following information about you: Pulse Respiration Blood pressure Weight 72/minute 16/minute 138/86 126.1 kg Juliana Barkley Ma 08/21/2018 2:54 PM Signed DM: Reports overall feeling well. Medication side effects: No. Home sugar checks: 78-191 since checking, usually 100-120, checking 1-2 times a day Hypoglycemic spells: No. Watching diet: Scheduled to see installer helper in a couple weeks . Unexpected weight loss: No. Polyuria, polydipsia: No. Vision Changes: No, getting better since controlling sugars Foot lesions or numbness or pain: Left foot numb and tingling She met with diabetic nurse at [facility]. Having her keep a food log and [...] spells: No. Watching diet: Scheduled to see installer helper in a couple weeks . Unexpected weight loss: No. Polyuria, polydipsia: No. Vision Changes: No, getting better since controlling sugars Foot lesions or numbness or pain: Left foot numb and tingling She met with diabetic nurse at [facility]. Having her keep a food log and [...] only. Bela: new one placed on 10/03/17 Vhkxdsir-Zc-Qet-Fe-FA ( FORMULA) ORAL Tab Take 1 tablet [...] Relation Age of Onset - Heart Father RI - Heart Paternal Grandmother TRIPLE BYPASS SURGERY - Cancer Maternal Grandmother LUNG CANCER - Cancer Father PANCREATIC CANCER - Diabetes Maternal Grandfather - Diabetes Father - Alcohol/Drug Mother Social History Marital status: Single Spouse name: Years of education: 12 Number of children: 1 Occupational History Occupation Employer Comment [employer]* [employer] Student Social History Main Topics Smoking status: [...] Zeferino Leon MD Referring Provider: ZEFERINO LEON [[id number]] Allergies As of Date: 08/21/2018 (No Known Allergies) Date Reviewed: 05/01/2018 Reviewed by: Jovana Hylton Barker Operator - Fully Assessed Reason for Visit: Diabetes [...] More... Visit Notes: >> Juliana Barkley [facility] Aug 21, 2018 2:46 PM Status: Signed DM: Reports overall feeling well. Medication side effects: No. Home sugar checks: 78-191 since checking, usually 100-120, checking 1-2 times a day Hypoglycemic spells: No. Watching diet: Scheduled to see installer helper in a couple weeks . Unexpected weight loss: No. Polyuria, polydipsia: No. Vision Changes: No, getting better since controlling sugars Foot lesions or numbness or pain: Left foot numb and tingling She met with diabetic nurse at [facility]. Having her keep a food log and [...] 07/24/2018 Status: F Source: [place] 1:43 PM [facility] Cardiovascular Services [address] [place] [address] 12 Lead EKG 07/22/18 1414 MR#: [id number] Acct: [id number] Name: SALEEM GRAY Rep #: [id number] : 1980 38 From: Vin Montes MD Attending Dr: Woody Rebolledo DO Status: DIS CHASITY Ordering Dr: Mildred Sotomayor DO Date: 07/22/18 Location: [facility] Sex: F C Admitted: 07/22/18 Test Reason [...] T wave abnormality Abnormal ECG Confirmed by VNI MONTES MD ([id number]), editor continuity and script GRAZYNA BLOOD ([id number]) on 07/24/2018 1:43:29 PM Referred By: Zeferino Leon Confirmed By:VIN MONTES MD 07/24/18 1343 Date Vin Montes MD CC: Woody Rebolledo DO; Mildred Sotomayor DO; Zeferino Leon MD Signed HEMOGLOBIN A1C Collected: 07/24/2018 Status: F Source: [place] 12:27 PM [facility] TYPE CODE TESTS RESULT OUT OF RANGE REFERENCE UNITS LAB L501.9985 4.2-6.3 % High HGB A1C 7.2 Performed By: #### L501.9985 #### [facility] [address] [facility] [place], [place], [id number] LIVER PROFILE Collected: 07/24/2018 Status: F Source: [place] 12:27 PM [facility] Order Comment: ADD ONTO DRAW FROM [...] 0.13 Performed By: #### L500.3400, L501.9520 #### [facility] [address] [place], [place], [id number] THYROID STIM HORMONE Collected: 07/24/2018 Status: F Source: [place] (TSH) 12:27 PM [facility] Order Comment: ADD ONTO DRAW FROM YESTERDAY. TYPE CODE TESTS RESULT OUT OF RANGE REFERENCE UNITS LAB L501.9520 0.358-3.74 uIU/mL Normal TSH 1.82 Performed By: #### L500.3400, L501.9520 #### [facility] [address] [place], [place], [id number] MICROALB:CREAT Collected: 07/24/2018 Status: F Source: [place] RATIO,RANDOM UR 12:27 PM [facility] TYPE CODE TESTS RESULT OUT OF RANGE REFERENCE UNITS LAB L501.1200 NO RANGE EST. mg/dL Normal UR CREAT 65.30 LAB L502.0500 NO RANGE EST. mg/L Normal 190.0 MICROALBUMIN ,UR LAB L502.0600 <30 mg/g CRE mg/g CRE High 291.0 MALB:CREAT Performed By: #### L502.0250 #### [facility] [address] [place], [place], [address] CBC W/DIFF, AUTOMATED Collected: 07/24/2018 Status: F Source: [place] 12:27 PM [facility] TYPE CODE TESTS RESULT OUT OF [...] Lymph 2.27 Performed By: #### L100.0100 #### [facility] [address] [place], [address] HEPATITIS PANEL ACUTE Collected: 07/24/2018 Status: F Source: [place] 12:27 PM [facility] TYPE CODE TESTS RESULT OUT OF RANGE REFERENCE UNITS LAB L3100.0200 Negative Normal HEP A Negative IgM 6734 LAB L3100.0400 Negative Normal HB Negative SURF AG LAB L3100.0440 Negative Normal HB Negative CORE [id number] LAB L3100.0650 0.0-0.9 s/co ratio Normal HEP C <0.1 AB Result Comment: Negative: < 0.8 Indeterminate: 0.8 - 0.9 Positive: > 0.9 The CDC recommends that a positive HCV antibody result be followed up with a HCV Nucleic Acid Amplification test (117584). Performed at: [facility] [id number] Manager Public: José Antonio Aldana PhD, Phone: [phone] Performed By: #### L3000.0375 #### [facility] (refer to report for specific site) refer to report for address and phone number BEDSIDE GLUCOSE Collected: 07/23/2018 Status: F Source: [place] 4:13 PM [facility] TYPE CODE TESTS RESULT OUT OF RANGE REFERENCE UNITS LAB L501.080 70-110 mg/dL Normal BEDSIDE GLU 106 Result Comment: MANAGEMENT OF PATIENT CARE PER NURSING PROTOCOL Performed By: #### L501.080 #### [facility] Point of Care [address] [place] [address] DISCHARGE SUMMARY Observed: 07/23/2018 Status: F Source: [place] 3:47 PM [facility] Medical Records Department [address] [place] [address] Discharge Summary 07/23/18 1545 MR#: [id number] Acct: [id number] Name: SALEEM GRAY Ivan Rep #: [id number] : 1980 38 From: Woody Rebolledo DO PCP: Zeferino Leon MD Status: ADM CHASITY Y Location: [place] [address] Discharge Date and Diagnosis - Problem List [...] applicable Code Visit OBSV E AND M: 57178 Observation care discharge 07/23/18 4356 <Electronically signed by Woody Rebolledo DO> Date Woody Rebolledo DO Cosigner Signature (if applicable): Date CC: Woody Rebolledo DO; Zeferino Leon MD Signed DISCHARGE INSTRUCTION Observed: 07/23/2018 Status: F Source: [place] 3:45 PM [facility] Medical Records Department [address] [place] [address] Instructions for Home/Discharge Instructions 07/23/18 1543 MR#: [id number] Acct: [id number] Name: SALEEM GRAY Rep #: [id number] : 1980 38 From: Woody Rebolledo DO [...] COMPLETE W/ Observed: 07/23/2018 Status: F Source: [place] CONTRAST 1:46 PM [facility] Cardiovascular Services [address] [place] [address] Echo Complete W/ Contrast 07/23/18 0911 MR#: [id number] Acct: [id number] Name: SALEEM GRAY Rep #: [id number] : 1980 38 From: Everette Villalpando MD Attending Dr: Woody Rebolledo DO Status: ADM CHASITY Ordering Dr: Yayo Mohamud MD Date: 07/22/18 Location: [facility] Sex: F C Admitted: 07/22/18 Reason For [...] Woody Rebolledo DO; Yayo Mohamud MD; Zeferino Leon MD Date Dictated: 07/23/18910 Date Transcribed: 07/23/18 134 Floor Supervisor: Signed BEDSIDE GLUCOSE Collected: 07/23/2018 Status: F Source: [place] 10:56 AM [facility] TYPE CODE TESTS RESULT OUT OF REFERENCE UNITS RANGE LAB L501.080 70-110 mg/dL High BEDSIDE GLU 152 Result Comment: Dr Orders Followed Insulin Given MANAGEMENT OF PATIENT CARE PER NURSING PROTOCOL Performed By: #### L501.080 #### [facility] Point of Care [address] [place], [place] [address] BEDSIDE GLUCOSE Collected: 07/23/2018 Status: F Source: [place] 7:00 AM [facility] TYPE CODE TESTS RESULT OUT OF REFERENCE UNITS RANGE LAB L501.080 70-110 mg/dL High BEDSIDE GLU 127 Result Comment: MANAGEMENT OF PATIENT CARE PER NURSING PROTOCOL Performed By: #### L501.080 #### [facility] Point of [facility] [address] [place] [address] BASIC METABOLIC Collected: 07/23/2018 Status: F Source: [place] PROFILE (BMP) 5:54 AM [facility] TYPE CODE TESTS RESULT OUT OF [...] Normal 10 Performed By: #### L500.2500 #### [facility] [address] [place], [place], [address] HEMOGLOBIN A1C Collected: 07/23/2018 Status: F Source: [place] 5:54 AM [facility] TYPE CODE TESTS RESULT OUT OF RANGE REFERENCE UNITS LAB L501.9985 4.2-6.3 % High HGB A1C 7.1 Performed By: #### L501.9985 #### [facility] [address] [place], [place], [address] TROPONIN-I Collected: 07/22/2018 Status: F Source: [place] 11:17 PM [facility] Order Comment: 'TROP' Serial specimen #1, #2 or #3: 3 TYPE CODE TESTS RESULT OUT OF RANGE REFERENCE UNITS LAB L501.4010 <0.045 ng/mL Normal < 0.015 TROPONIN-I Result Comment: TROPONIN-I EXPECTED VALUES <0.045 Negative 0.045 - 0.590 Consistent with Cardiac Damage > OR = 0.600 Critical Value Not every elevated troponin is indicative of RI. These values should be used with clinical judgement in examining the patient's clinical picture for diagnosis. To establish a diagnosis of RI versus myocardial injury, there must be a demonstrated rise and/or fall in the troponin values, in addition to ischemic symptoms, EKG changes, new regional wall motion abnormality, and/or angiographical evidence. PLEASE NOTE: REFERENCE RANGES EDITED 18 Performed By: #### L501.4010 #### [facility] [address] [place], [address] BEDSIDE GLUCOSE Collected: 07/22/2018 Status: F Source: [place] 10:50 PM [facility] TYPE CODE TESTS RESULT OUT OF REFERENCE UNITS RANGE LAB L501.080 70-110 mg/dL High BEDSIDE GLU 157 Result Comment: MANAGEMENT OF PATIENT CARE PER NURSING PROTOCOL Performed By: #### L501.080 #### [facility] Point of Care [address] [place] [address] TROPONIN-I Collected: 07/22/2018 Status: F Source: [place] 8:18 PM [facility] Order Comment: 'TROP' Serial specimen #1, #2 or #3: 2 TYPE CODE TESTS RESULT OUT OF RANGE REFERENCE UNITS LAB L501.4010 <0.045 ng/mL Normal < 0.015 TROPONIN-I Result Comment: TROPONIN-I EXPECTED VALUES <0.045 Negative 0.045 - 0.590 Consistent with Cardiac Damage > OR = 0.600 Critical Value Not every elevated troponin is indicative of RI. These values should be used with clinical judgement in examining the patient's clinical picture for diagnosis. To establish a diagnosis of RI versus myocardial injury, there must be a demonstrated rise and/or fall in the troponin values, in addition to ischemic symptoms, EKG changes, new regional wall motion abnormality, and/or angiographical evidence. PLEASE NOTE: REFERENCE RANGES EDITED 18 Performed By: #### L501.4010 #### [facility] [address] [place], [address] BEDSIDE GLUCOSE Collected: 07/22/2018 Status: F Source: [place] 6:53 PM [facility] TYPE CODE TESTS RESULT OUT OF RANGE REFERENCE UNITS LAB L501.080 70-110 mg/dL Normal BEDSIDE GLU 106 Result Comment: MANAGEMENT OF PATIENT CARE PER NURSING PROTOCOL Performed By: #### L501.080 #### [facility] Point of Care [address] [facility]. [place], [place] [address] TROPONIN-I Collected: 07/22/2018 Status: F Source: [place] 5:56 PM [facility] Order Comment: 'TROP' Serial specimen #1, #2 or #3: 1 TYPE CODE TESTS RESULT OUT OF RANGE REFERENCE UNITS LAB L501.4010 <0.045 ng/mL Normal < 0.015 TROPONIN-I Result Comment: TROPONIN-I EXPECTED VALUES <0.045 Negative 0.045 - 0.590 Consistent with Cardiac Damage > OR = 0.600 Critical Value Not every elevated troponin is indicative of RI. These values should be used with clinical judgement in examining the patient's clinical picture for diagnosis. To establish a diagnosis of RI versus myocardial injury, there must be a demonstrated rise and/or fall in the troponin values, in addition to ischemic symptoms, EKG changes, new regional wall motion abnormality, and/or angiographical evidence. PLEASE NOTE: REFERENCE RANGES EDITED 18 Performed By: #### L501.4010, L501.5200 #### [facility] [address] [facility] [place], [address] MAGNESIUM Collected: 07/22/2018 Status: F Source: [place] 5:56 PM [facility] Order Comment: 'TROP' Serial specimen #1, #2 or #3: 1 TYPE CODE TESTS RESULT OUT OF RANGE REFERENCE UNITS LAB L501.5200 1.6-2.6 mg/dL Low MG 1.5 Performed By: #### L501.4010, L501.5200 #### [facility] [address] [facility] [place], [address] HISTORY AND PHYSICAL Observed: 07/22/2018 Status: F Source: [place] EXAM 5:33 PM [facility] Medical Records Department [address] [place] [address] History and Physical 07/22/18 1716 MR#: [id number] Acct: [id number] Name: SALEEM GRAY Rep #: [id number] : 1980 38 From: Yayo Mohamud MD PCP: Zeferino Leon MD Status: ADM CHASITY Y Location: [place] [address] Problem List (1) Near syncope Status: Acute [...] in menstrual period. Her father had early RI and he of coronary artery disease [] [...] in menstrual period. Her father had early RI and he of coronary artery disease 1. [...] milligrams daily. This note was generated with iPowow dictation software. Every effort was made to ensure accuracy, however computerized drill press set up operator radial mistakes may persist. Code Visit OBSV E AND M: 49598 Initial observation care L3 07/22/18 1733 <Electronically signed by Yayo Mohamud MD> Date Yayo Mohamud MD Cosigner Signature: Date (if applicable) CC: Yayo Mohamud MD; Zeferino Leon MD Signed BRAIN WITHOUT Observed: 07/22/2018 Status: F Source: [place] CONTRAST 5:26 PM [facility] Imaging Services [address] [place] [address] Brain without Contrast MR#: [id number] Acct: [id number] Name: SALEEM GRAY Rep #: [id number] : 1980 F 38 From: Noe Michael MD PCP: Zeferino Leon MD Status: ADM CHASITY Study: Brain without Contrast Date of Exam: 07/22/18 Exam# [id number] Ordering Dr: Yayo Mohamud MD STUDY: MRI [...] CC: Yayo Mohamud MD; Zeferino Leon MD Floor Supervisor: Signed ABDOMEN SINGLE VIEW Observed: 07/22/2018 Status: F Source: [place] 5:26 PM [facility] Imaging Services [address] [place] [address] Abdomen Single View MR#: [id number] Acct: [id number] Name: SALEEM GRAY Rep #: [id number] : 1980 F 38 From: Raghav Shea MD PCP: Zeferino Leon MD Status: ADM CHASITY Study: Abdomen Single View Date of Exam: 07/22/18 Exam# [id number] Ordering Dr: Yayo Mohamud MD STUDY: X-RAY [...] CC: Yayo Mohamud MD; Zeferino Leon MD Floor Supervisor: Signed EMERGENCY DEPARTMENT Observed: 07/22/2018 Status: F Source: [place] SUMMARY 4:41 PM [facility] Medical Records Department [address] [place] [address] Emergency Department Summary 07/22/18 1635 MR#: [id number] Acct: [id number] Name: SALEEM GRAY Rep #: [id number] : 1980 38 From: Mildred Sotomayor DO [...] rebound or rigidity, no peritoneal signs. Neuro mtna-gcrlur-tqho and heel stokes testing within normal limits, [...] [Dizziness-etiology uncertain] This note was generated with iPowow dictation software. It may contain incorrect words, [...] your Primary Care Provider. Call [facility] ([phone]) or report to the closest Emergency Room. Call 911 if necessary. 07/22/18 1641 <Electronically signed by Mildred Sotomayor DO> Date Mildred Sotomayor DO Cosigner Signature (If Indicated): Date CC: Zeferino Leon MD BRAIN/HEAD WITHOUT Observed: 07/22/2018 Status: F Source: [place] CONTRAST 4:01 PM [facility] Imaging Services [address] [place] [address] Brain/Head without Contrast MR#: [id number] Acct: [id number] Name: SALEEM GRAY Rep #: [id number] : 1980 F 38 From: Raghav Shea MD PCP: Zeferino Leon MD Status: REG ER Study: Brain/Head without Contrast Date of Exam: 07/22/18 Exam# [id number] Ordering Dr: Mildred Sotomayor DO STUDY: CT [...] CC: Mildred Sotomayor DO; Zeferino Leon MD Floor Supervisor: Signed URINALYSIS, COMPLETE Collected: 07/22/2018 Status: F Source: [place] 3:30 PM [facility] Order Comment: Order Date: 07/22/18 How [...] URINE SEEN Performed By: #### L400.0001 #### [facility] [address] [place], [address] CBC W/DIFF, AUTOMATED Collected: 07/22/2018 Status: F Source: [place] 2:15 PM [facility] TYPE CODE TESTS RESULT OUT OF [...] Lymph 2.50 Performed By: #### L100.0100 #### [facility] [address] [facility] [place], [place], [address] D-DIMER QUANTITATIVE Collected: 07/22/2018 Status: F Source: [place] (DVT/PE) 2:15 PM [facility] TYPE CODE TESTS RESULT OUT OF RANGE REFERENCE UNITS LAB L300.8000 0.27-0.49 FEU/ug/m Low D-DIMER < 0.27 QUANT Result Comment: NORMAL D-Dimer level (<0.50) indicates no DVT or PE. Performed By: #### L300.8000 #### [facility] [address] [facility] [place], [place], [address] COMPREHENSIVE METABOLIC Collected: 07/22/2018 Status: F Source: [place] PROFIL 2:15 PM [facility] TYPE CODE TESTS RESULT OUT OF [...] 11 Performed By: #### L500.4050, L501.2450 #### [facility] [address] [place], [place], [address] LIPASE Collected: 07/22/2018 Status: F Source: [place] 2:15 PM [facility] TYPE CODE TESTS RESULT OUT OF RANGE REFERENCE UNITS LAB L501.2450 73-393 U/L Normal LIPASE 204 Performed By: #### L500.4050, L501.2450 #### [facility] [address] [place], [address] ,SERUM,HCG QUALI. Collected: Status: F Source: [place] 07/22/2018 2:15 PM [facility] TYPE CODE TESTS RESULT OUT OF REFERENCE UNITS RANGE LAB L700.6700 =>Qualitative mIU/mL Normal HCG Qual < 1 triggr LAB L700.7000 0-9 Nonpreg Negative Normal HCGSQUAL NEGATIVE Performed By: #### L700.6800 #### [facility] [address] [place], [address] BEDSIDE GLUCOSE Collected: 07/22/2018 Status: F Source: [place] 1:51 PM [facility] TYPE CODE TESTS RESULT OUT OF RANGE REFERENCE UNITS LAB L501.080 70-110 mg/dL Normal BEDSIDE GLU 98 Result Comment: MANAGEMENT OF PATIENT CARE PER NURSING PROTOCOL Performed By: #### L501.080 #### [facility] Point of Care [address] [place] [address] PROGRESS Observed: 07/21/2018 Status: COMPLETED Source: [place] 4:25 PM [facility] HNO ID: [id number] Author: Zeferino Leon Service: (none) Author Type: [...] Does not snore Wants to see a studio potter at hospital. Will give the ok. MEDICATIONS: [...] only. Bela: new one placed on 10/03/17 Efkrmbbd-Ds-Bmz-Fe-FA ( FORMULA) ORAL Tab Take 1 tablet [...] Relation Age of Onset - Heart Father RI - Heart Paternal Grandmother TRIPLE BYPASS SURGERY - Cancer Maternal Grandmother LUNG CANCER - Cancer Father PANCREATIC CANCER - Diabetes Maternal Grandfather - Diabetes Father - Alcohol/Drug Mother Social History Marital status: Single Spouse name: Years of education: 12 Number of children: 1 Occupational History Occupation Employer Comment [employer] Student Social History Main Topics Smoking status: [...] Call sugars in one week. - see installer helper. - will call sugars - BLOOD-GLUCOSE METER [...] AUG CNOV Observed: 07/21/2018 Status: COMPLETED Source: [place] 4:00 PM [facility] REPOSITORY Office Visit (FAMPWS) SALEEM GRAY ([id number]) 1980 F Date Time Provider Department 07/21/18 4:00 PM [facility] During your visit today, we recorded [...] Does not snore Wants to see a studio potter at hospital. Will give the ok. MEDICATIONS: [...] only. Bela: new one placed on 10/03/17 Ahpslquv-Wb-Ziw-Fe-FA ( FORMULA) ORAL Tab Take 1 tablet [...] Relation Age of Onset - Heart Father RI - Heart Paternal Grandmother TRIPLE BYPASS SURGERY - Cancer Maternal Grandmother LUNG CANCER - Cancer Father PANCREATIC CANCER - Diabetes Maternal Grandfather - Diabetes Father - Alcohol/Drug Mother Social History Marital status: Single Spouse name: Years of education: 12 Number of children: 1 Occupational History Occupation Employer Comment [employer] Student Social History Main Topics Smoking status: [...] Call sugars in one week. - see installer helper. - will call sugars - BLOOD-GLUCOSE METER [...] grain hamburger bun, hot dog bun, or Pakistani muffin; ? of a small bagel or [...] whole grain crackers 1 small orange OR [place] with turkey, lettuce, tomato, 1 tablespoon reduced [...] ideas 3 cups unbuttered popcorn OR 1 fzcqq-ucc-e-half Luis A crackers OR ? cup whole [...] as noted above. These numbers can vary gxhunm-sg-gbysbd. Other Tips 1. Seeing a registered dietitian [...] Date Reviewed: 05/01/2018 Reviewed by: Jovana Hylton Barker Operator - Fully Assessed Reason for Visit: Diabetes [...] grain hamburger bun, hot dog bun, or Pakistani muffin; ? of a small bagel or [...] whole grain crackers 1 small orange OR [place] with turkey, lettuce, tomato, 1 tablespoon reduced [...] ideas 3 cups unbuttered popcorn OR 1 tpjlz-jgn-w-half Luis A crackers OR ? cup whole [...] as noted above. These numbers can vary prnbro-hz-oqdjvi. Other Tips 1. Seeing a registered dietitian [...] LIVER PROFILE Collected: 07/15/2018 Status: F Source: [place] 8:53 AM [facility] TYPE CODE TESTS RESULT OUT OF [...] BILI 0.16 Performed By: #### L500.3400 #### [facility] [address] [place], [place], [address] HEMOGLOBIN A1C Collected: 07/15/2018 Status: F Source: [place] 8:53 AM [facility] TYPE CODE TESTS RESULT OUT OF RANGE REFERENCE UNITS LAB L501.9985 4.2-6.3 % High HGB A1C 7.2 Performed By: #### L501.9985 #### [facility] [address] [place], [place], [address] HEPATITIS ABC PROFILE Collected: 07/15/2018 Status: F Source: [place] 8:53 AM [facility] TYPE CODE TESTS RESULT OUT OF RANGE REFERENCE UNITS LAB L3100.0200 Negative Normal HEP A Negative IgM 6734 LAB L3100.0300 Negative Normal HEP A Negative AB,T.6726 LAB L3100.0400 Negative Normal HB Negative SURF AG LAB L3100.0440 Negative Normal HB Negative CORE [id number] LAB L3100.0460 Negative Normal HEP B Negative [...] F Source: [place] VIRAL LOAD 8:53 AM [facility] TYPE CODE TESTS RESULT OUT OF RANGE REFERENCE UNITS LAB L7000.7100 . IU/mL HCV Normal HCV Not Detected QT PCR LAB L7000.7350 . Test Normal HCV not performed log 10 LAB L7000.7500 . Normal TEST Comment INFO: Result Comment: The quantitative range of this assay is 15 IU/mL to 100 million IU/mL. Performed at: [facility] [id number] Manager Public: José Antonio Aldana PhD, Phone: [phone] Performed at: [facility] [address] [id number] Manager Public: Zeferino Jovel MD, Phone: [phone] Performed By: #### L3000.0700, L7000.7000 #### [facility] (refer to report for specific site) refer to report for address and phone number URINALYSIS, EMPLOYEE Collected: 07/04/2018 Status: F Source: [place] 7:06 AM [facility] TYPE CODE TESTS RESULT OUT OF [...] ESTERASE 100 Performed By: #### L400.0100 #### [facility] [address] [place], [address] CBC, EMPLOYEE Collected: 07/04/2018 Status: C Source: [place] 7:06 AM [facility] TYPE CODE TESTS RESULT OUT OF [...] as: March Performed By: #### L100.0200 #### [facility] [place], [address] EMPLOYEE PROFILE Collected: 07/04/2018 Status: F Source: [place] 7:06 AM [facility] TYPE CODE TESTS RESULT OUT OF [...] LDH 214 Performed By: #### L500.2900 #### [facility] [address] [place], [address] NICOTINE URINE DRUG Collected: 07/04/2018 Status: F Source: [place] SCREEN 7:06 AM [facility] TYPE CODE TESTS RESULT OUT OF [...] of Nicotine. Performed By: #### L505.6240 #### [facility] [address] [place], [place], [address] URGENT CARE VISIT Observed: 06/09/2018 Status: F Source: [place] REPORT 7:58 AM [facility] [address] [place] [address] [address] [place] [address] OFFICE VISIT Date of Service: 05/26/18 MR#: [id number] Acct: [id number] Name: SALEEM GRAY Rep #: [id number] : 1980 Provider: Santana IRENE Age/Sex: 37/F Location[place] [facility] Status: Signed Intake Vital Signs05/26/18 Height 5 [...] CC: PROGRESS Observed: 06/03/2018 Status: COMPLETED Source: [place] 1:40 PM [facility] RE[facility] O ID: [id number] Author: Krystle Stovall) Mitchell Service: (none) Author Type: Physician Radiator Mechanic Type: Progress Notes Filed: 06/03/2018 2:42 PM [...] Relation Age of Onset - Heart Father RI - Heart Paternal Grandmother TRIPLE BYPASS SURGERY [...] children: 1 Occupational History Occupation Employer Comment [employer] Student Social History Main Topics [...] one placed on 10/03/17 Disp: Rfl: 0 Yybtiydc-Vr-Ghh-Fe-FA ( FORMULA) ORAL Tab Take 1 tablet [...] PA-C CNOV Observed: 06/03/2018 Status: COMPLETED Source: [place] 1:20 PM [facility] REPOSITORY Office Visit (FAMPWS) SALEEM GRAY ([id number]) 1980 F Date Time Provider Department 06/03/18 [...] Relation Age of Onset - Heart Father RI - Heart Paternal Grandmother TRIPLE BYPASS SURGERY [...] children: 1 Occupational History Occupation Employer Comment [employer]* [employer] Student Social History Main Topics Smoking status: [...] one placed on 10/03/17 Disp: Rfl: 0 Tuncelwu-Dc-Snu-Fe-FA ( FORMULA) ORAL Tab Take 1 tablet [...] Names: Rich Apo-Lorazepam; Ativan; Dom-Lorazepam; Lorazepam Injection, LONG-TERM; PHL-Lorazepam; PMS-Lorazepam; PRO-Lorazepam; Teva-Lorazepam What is this [...] Date Reviewed: 05/01/2018 Reviewed by: Jovana Hylton Barker Operator - Fully Assessed Reason for Visit: Medication [...] Names: Rich Apo-Lorazepam; Ativan; Dom-Lorazepam; Lorazepam Injection, LONG-TERM; PHL-Lorazepam; PMS-Lorazepam; PRO-Lorazepam; Teva-Lorazepam What is this [...] CHIROPRACTIC REPORT Observed: 06/02/2018 Status: F Source: [place] 9:34 AM [facility] [address] [place] [address] OFFICE VISIT Date of Service: 05/26/18 MR#: [id number] Acct: [id number] Name: SALEEM GRAY Rep #: [id number] : 1980 Provider: Bibiana Rehman D.C. Age/Sex: 37/F [place] [facility] [place]: Signed Intake Vital Signs05/26/18 Height 5 [...] Additional Codes Procedures - Manipulation: 3-4 regions (87512) Procedures - Electrical Stimulation: 15 mins (85883) 06/02/18 0934 <Electronically signed by Bibiana Rehman D.C.> Date Bibiana Rehman D.C. Cosigner Signature: Date (if applicable) CC: URINALYSIS, COMPLETE Collected: 05/26/2018 Status: F Source: [place] 7:04 PM [facility] Order Comment: How was Urine Obtained? [...] RARE Performed By: #### L400.0001, M100.0650 #### [facility] [address] [facility] [place], [address] Observed: 05/26/2018 Status: F Source: [place] CULTURE, URINE 7:04 PM [facility] Urine Culture Below infection level. ORGANISM 1: Mixed Gram Positive Organisms Kerby Count 25,000-50,000 MIX CULTURE Mixed contaminants. Submit a new specimen if indicated. Performed By: #### L400.0001, M100.0650 #### [facility] [address] [facility] [place], [address] RIBS UNI MIN 3V Observed: 05/01/2018 Status: F Source: [place] W/PA CHEST 1:12 PM [facility] Imaging Services [address] [place] [address] Ribs Uni Min 3V w/PA Chest MR#: [id number] Acct: [id number] Name: SALEEM GRAY Rep #: [id number] : 1980 F 37 From: Noe Michael MD PCP: Zeferino Leon MD Status: REG CLI Study: Ribs Uni Min 3V w/PA Chest Date of Exam: 05/01/18 Exam# [id number] Ordering Dr: CINDY EDOUARD STUDY: X-RAY - [...] , CC: CINDY EDOUARD; Zeferino Leon MD Floor Supervisor: Signed DALE Observed: 05/01/2018 Status: COMPLETED Source: [place] 11:20 AM [facility] REPOSITORY Office Visit (FAMPWS) SALEEM GRAY ([id number]) 1980 F Date Time Provider Department 05/01/18 11:20 AM [facility] EDOUARD [facility] During your visit today, we recorded the [...] only. Bela: new one placed on 10/03/17 Vwqsiosu-Al-Fku-Fe-FA ( FORMULA) ORAL Tab Take 1 tablet by mouth once daily. No current facility-administered medications for this visit. FAMILY HISTORY Problem Relation Age of Onset - Heart Father RI - Heart Paternal Grandmother TRIPLE BYPASS SURGERY - Cancer Maternal Grandmother LUNG CANCER - Cancer Father PANCREATIC CANCER - Diabetes Maternal Grandfather - Diabetes Father - Alcohol/Drug Mother Social History Marital status: Single Spouse name: Years of education: 12 Number of children: 1 Occupational History Occupation Employer Comment [employer]* [employer] Student Social History Main Topics Smoking status: [...] - Chest X-ray today. She works as [employer] and requests to go there. - Continue [...] Date Reviewed: 05/01/2018 Reviewed by: Jovana Hylton Barker Operator - Fully Assessed Reason for Visit: left rib pain [Other] Cmt: X 1 week Primary Visit Diagnosis:Rib pain on left side [R07.81] Order(s):XR RIBS/CHEST 3V AP RIB/OBLS/CXR LT [[id number]] Order #: [id number] FUTURE Prescriptions as of 05/01/2018 Sig: MELOXICAM [...] 05/01/18 PROGRESS Observed: 05/01/2018 Status: COMPLETED Source: [place] 10:59 AM [facility] [place] REPOSITORY HNO ID: [id number] Author: Cindy (Brandan) Silke Service: (none) Author [...] only. Bela: new one placed on 10/03/17 Lyumxyjv-Ca-Lqd-Fe-FA ( FORMULA) ORAL Tab Take 1 tablet by mouth once daily. No current facility-administered medications for this visit. FAMILY HISTORY Problem Relation Age of Onset - Heart Father RI - Heart Paternal Grandmother TRIPLE BYPASS SURGERY - Cancer Maternal Grandmother LUNG CANCER - Cancer Father PANCREATIC CANCER - Diabetes Maternal Grandfather - Diabetes Father - Alcohol/Drug Mother Social History Marital status: Single Spouse name: Years of education: 12 Number of children: 1 Occupational History Occupation Employer Comment [employer] Student Social History Main Topics Smoking status: [...] - Chest X-ray today. She works as [employer] and requests to go there. - [...] as needed for worsening/no improvement. Cindy Edouard APRN.EMPLOYEE BENEFITS ATTORNEY 12 LEAD ELECTROCARDIOGRAM Observed: 03/12/2018 Status: F Source: [place] 1:36 PM [facility] Cardiovascular Services [address] [place] [address] 12 Lead EKG 03/09/18 1041 MR#: [id number] Acct: [id number] Name: SALEEM GRAY Rep #: [id number] : 1980 37 From: Angel Cruz MD [...] Abnormal ECG Confirmed by NANCY SHEARER, ANGEL ([id number]), editor continuity and script GRAZYNA BLOOD ([id number]) on 03/12/2018 1:35:32 PM Referred By: JIMENA/JADE Confirmed By:ANGEL CRUZ MD 03/12/18 1335 Date Angel Cruz MD CC: MD Gume Gauthier; Zeferino Leon MD Signed 12 LEAD ELECTROCARDIOGRAM Observed: 03/12/2018 Status: F Source: [place] 1:35 PM [facility] Cardiovascular Services [address] [place] [address] 12 Lead EKG 03/09/18 1417 MR#: [id number] Acct: [id number] Name: SALEEM GRAY Rep #: [id number] : 1980 37 From: Angel Cruz MD [...] ECG Confirmed by NANCY SHEARER, ANGEL ([id number]), editor continuity and script GRAZYNA BLOOD (56) on 03/12/2018 1:35:10 PM Referred By: JADE Confirmed By:ANGEL CRUZ MD 03/12/18 1335 Date Angel Cruz MD CC: MD Gume Gauthier; Zeferino Leon MD Signed PROGRESS Observed: 03/10/2018 Status: COMPLETED Source: [place] 4:41 PM [facility] REPOSITORY HNO ID: [id number] Author: Zeferino Leon Service: (none) Author Type: Physician Type: Progress Notes Filed: 03/10/2018 4:59 PM Note Text: Patient presents with: Back Pain HPI: Patient presents today for office visit for follow up. Seen in [facility] ER yesterday with right sided chest pain. [...] not any better. Suggested she could consider injection molding operator if we needed to determine if it [...] only. Bela: new one placed on 10/03/17 Dptnzhcp-Yl-Czl-Fe-FA ( FORMULA) ORAL Tab Take 1 tablet [...] Relation Age of Onset - Heart Father RI - Heart Paternal Grandmother TRIPLE BYPASS SURGERY - Cancer Maternal Grandmother LUNG CANCER - Cancer Father PANCREATIC CANCER - Diabetes Maternal Grandfather - Diabetes Father - Alcohol/Drug Mother Social History Marital status: Single Spouse name: Years of education: 12 Number of children: 1 Occupational History Occupation Employer Comment [employer] Student Social History [...] MD CNOV Observed: 03/10/2018 Status: COMPLETED Source: [place] 4:00 PM [facility] REPOSITORY [facility] SALEEM GRAY ([id number]) 1980 F Date Time Provider Department 03/10/18 4:00 PM [facility] During your visit today, we recorded the following information about you: Temperature Pulse Respiration Blood pressure 98.7 degrees 80/minute 14/minute 136/88 Weight 133.8 kg Zeferino Leon 03/10/2018 4:59 PM Signed Patient presents with: Back Pain HPI: Patient presents today for office visit for follow up. Seen in [facility] ER yesterday with right sided chest pain. [...] not any better. Suggested she could consider injection molding operator if we needed to determine if it [...] only. 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 Social History Main Topics Smoking status: [...] EMERGENCY DEPARTMENT Observed: 03/09/2018 Status: F Source: [place] SUMMARY 3:12 PM [facility] Medical Records Department [address] [place] [address] Emergency Department Summary 03/09/18 1052 MR#: [id number] Acct: [id number] Name: SALEEM GRAY Rep #: [id number] : 1980 37 From: Hermelindo Gauthier MD [...] for evaluation she has no history of RI PE DVT asthma emphysema or any cardiovascular [...] extremities normal pulses sensation cap refill and staff 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 It may contain incorrect words, [...] your Primary Care Provider. Call [facility] ([phone]) or report to the closest Emergency Room. Call 911 if necessary. 03/09/18 6622 <Electronically signed by Hermelindo Guathier MD> Date Hermelindo Gauthier MD Cosigner Signature (If Indicated): Date CC: Zeferino Leon MD DISCHARGE INSTRUCTION Observed: 03/09/2018 Status: F Source: [place] 1:50 PM [facility] Medical Records Department [address] [place] [address] Discharge Instruction 03/09/18 1348 MR#: [id number] Acct: [id number] Name: SALEEM GRAY Rep #: [id number] : 1980 37 From: Hermelindo Gauthier MD [...] problems, contact your Primary Care Provider. Call [employer] [facility] ([phone]) or report to the closest Emergency Room. Call 911 if necessary. 03/09/18 1350 <Electronically signed by Hermelindo Gauthier MD> Date Hermelindo Gauthier MD Cosigner Signature (If Indicated): Date CC: Zeferino Leon MD DISCHARGE INSTRUCTION Observed: 03/09/2018 Status: F Source: [place] 1:47 PM [facility] Medical Records Department [address] [place] [address] Discharge Instruction 03/09/18 1347 MR#: [id number] Acct: [id number] Name: SALEEM GRAY Rep #: [id number] : 1980 37 From: Hermelindo Gauthier MD [...] your Primary Care Provider. Call [facility] ([phone]) or report to the closest Emergency Room. Call 911 if necessary. 03/09/18 1347 <Electronically signed by Hermelindo Gauthier MD> Date Hermelindo Gauthier MD Cosigner Signature (If Indicated): Date CC: Zeferino Leon MD TROPONIN-I Collected: 03/09/2018 Status: F Source: [place] 12:55 PM [facility] Order Comment: Comments: Draw at 1 PM 'TROP' Serial specimen #1, #2, #3, or #4: 1 TYPE CODE TESTS RESULT OUT OF RANGE REFERENCE UNITS LAB L501.4010 <0.06 ng/mL Normal < 0.02 TROPONIN-I Result Comment: TROPONIN-I EXPECTED VALUES <0.05 NEGATIVE 0.06 - 0.59 AT RISK OF RI > OR = 0.60 SUGGEST RI Performed By: #### L501.4010 #### [facility] [address] [place], [address] CBC W/DIFF, AUTOMATED Collected: 03/09/2018 Status: F Source: [place] 10:45 AM [facility] TYPE CODE TESTS RESULT OUT OF [...] Lymph 2.30 Performed By: #### L100.0100 #### [facility] [address] [place], [address] D-DIMER QUANTITATIVE Collected: 03/09/2018 Status: F Source: [place] (DVT/PE) 10:45 AM [facility] TYPE CODE TESTS RESULT OUT OF RANGE REFERENCE UNITS LAB L300.8000 0.27-0.49 FEU/ug/m Normal D-DIMER 0.37 QUANT Result Comment: NORMAL D-Dimer level (<0.50) indicates no DVT or PE. Performed By: #### L300.8000 #### [facility] [address] [place], [address] BASIC METABOLIC Collected: 03/09/2018 Status: F Source: [place] PROFILE (BMP) 10:45 AM [facility] Order Comment: 'TROP' Serial specimen #1, [...] 9 Performed By: #### L500.2500, L501.4010 #### [facility] [address] [facility]. [place], [place], [address] TROPONIN-I Collected: 03/09/2018 Status: F Source: [place] 10:45 AM [facility] Order Comment: 'TROP' Serial specimen #1, #2, #3, or #4: 1 TYPE CODE TESTS RESULT OUT OF RANGE REFERENCE UNITS LAB L501.4010 <0.06 ng/mL Normal < 0.02 TROPONIN-I Result Comment: TROPONIN-I EXPECTED VALUES <0.05 NEGATIVE 0.06 - 0.59 AT RISK OF RI > OR = 0.60 SUGGEST RI Performed By: #### L500.2500, L501.4010 #### [facility] [address] [place], [place], [address] CHEST 1 VIEW Observed: 03/09/2018 Status: F Source: [place] (PORTABLE) 10:44 AM [facility] Imaging Services [address] [place] [address] Chest 1 View (Portable) MR#: [id number] Acct: [id number] Name: SALEEM GRAY Rep #: [id number] : 1980 F 37 From: Dre Saldivar DO PCP: Zeferino Leon MD Status: PRE ER Study: Chest 1 View (Portable) Date of Exam: 03/09/18 Exam# [id number] Ordering Dr: Hermelindo Gauthier MD STUDY: X-RAY [...] Dre Saldivar DO at 11:07 EDT Tel [phone], Service support , CC: MD Gume Gauthier; Zeferino Leon MD Floor Supervisor: Signed OPERATIVE REPORT Observed: 02/03/2018 Status: F Source: [place] 10:59 AM [facility] REPOSITORY [facility] Medical Records Department [address] [place] [address] Operative Report 02/03/18 1055 MR#: [id number] Acct: [id number] Name: SALEEM GRAY Rep #: [id number] : 1980 37 From: Noe Lai MD PCP: Zeferino Leon MD Status: DEP [facility] Y Location: [facility] Problem List (1) Lumbosacral spondylosis Status: Chronic [...] OR 3 Observed: 02/03/2018 Status: F Source: [facility] 4:53 AM [facility] Imaging Services [address] [place] [address] Lumbar Spine 2 or 3 Views MR#: [id number] Acct: [id number] Name: SALEEM GRAY Ivan Rep #: [id number] : 1980 F 37 From: Chelsea Gomez MD PCP: Zeferino Leon MD Status: [facility] Study: Lumbar Spine 2 or 3 Views Date of Exam: 02/03/18 Exam# [id number] Ordering Dr: Noe Lai MD CLINICAL HISTORY: [...] , CC: Noe Lai; Zeferino Leon MD Floor Supervisor: Signed ORTHOPEDIC VISIT Observed: 12/30/2017 Status: F Source: [place] REPORT 2:45 PM [facility] Orthopaedics AND Sports Medicine [address] [place] [address] OFFICE VISIT Date of Service: 12/27/17 MR#: [id number] Acct: [id number] Name: SALEEM GRAY Rep #: [id number] : 1980 Provider: Jackson Brown DO Age/Sex: 37/F [place] [facility] Status: Signed Intake Intake Visit Reasons: low [...] work but also give her the appropriate SchoolChapters 14 C9 aware of her Workmen's Comp. [...] BRAIN/HEAD WITHOUT Observed: 12/13/2017 Status: F Source: [place] CONTRAST 2:17 PM [facility] Imaging Services [address] [place] [address] Brain/Head without Contrast MR#: [id number] Acct: [id number] Name: SALEEM GRAY Rep #: [id number] : 1980 F 37 From: Emiliano Gonzalez MD PCP: Zeferino Leon MD Status: REG CLI Study: Brain/Head without Contrast Date of Exam: 12/13/17 Exam# [id number] Ordering Dr: Krystle Medrano STUDY: CT BRAIN [...] Emiliano [place] MD at 15:07 EST Tel [phone], Service support , CC: rKystle Medrano; Zeferino Leon MD Floor Supervisor: Signed CBC W/DIFF, AUTOMATED Collected: 12/13/2017 Status: F Source: [place] 10:29 AM [facility] TYPE CODE TESTS RESULT OUT OF [...] Lymph 2.81 Performed By: #### L100.0100 #### [facility] [address], [address] COMPREHENSIVE METABOLIC Collected: 12/13/2017 Status: F Source: [place] [facility] 10:29 AM [facility] TYPE CODE TESTS RESULT OUT OF [...] 10 Performed By: #### L500.4050, L501.9520 #### [facility] [address] [place], [address] THYROID STIM HORMONE Collected: 12/13/2017 Status: F Source: [place] (TSH) 10:29 AM [facility] TYPE CODE TESTS RESULT OUT OF RANGE REFERENCE UNITS LAB L501.9520 0.358-3.74 uIU/mL Normal TSH 3.29 Performed By: #### L500.4050, L501.9520 #### [facility] [address] [facility] [place], [address] PROGRESS Observed: 12/13/2017 Status: COMPLETED Source: [place] 9:13 AM [facility] REPOSITORY HNO ID: [id number] Author: Krystle Carroll (Jonny) Mitchell Service: (none) Author Type: Physician Radiator Mechanic Type: Progress Notes Filed: 12/13/2017 1:29 PM [...] Relation Age of Onset - Heart Father RI - Heart Paternal Grandmother TRIPLE BYPASS SURGERY [...] children: 1 Occupational History Occupation Employer Comment [employer]* [employer] Student Social History Main Topics Smoking status: [...] one placed on 10/03/17 Disp: Rfl: 0 Icgwhzkc-Ms-Btx-Fe-FA ( FORMULA) ORAL Tab Take 1 tablet [...] OPERATIVE REPORT Observed: 12/09/2017 Status: F Source: [place] 2:47 PM [facility] Medical Records Department [address] [place] [address] Operative Report 12/09/17 1444 MR#: [id number] Acct: [id number] Name: SALEEM GRAY Rep #: [id number] : 1980 37 From: Noe Lai MD PCP: Zeferino Leon MD Status: REG [facility] Y Location: [place] [address] Problem List (1) Degeneration of intervertebral disc [...] 12/09/2017 Status: F Source: [place] 12:10 PM [facility] TYPE CODE TESTS RESULT OUT OF REFERENCE UNITS RANGE LAB L400.8000 Negative Normal HCGUQUAL Negative Result Comment: Very dilute urine specimens, as indicated by a low specific gravity, may not contain indirect sales representative levels of hCG. If is still suspected, a first morning urine specimen should be collected 48 hours later and tested. Performed By: #### L400.7600 #### [facility] [address] [place], [address] FLUOR GUIDANCE FOR Observed: 12/09/2017 Status: F Source: [place] SPINE INJ 3:06 AM [facility] Imaging Services [address] [address] Fluor Guidance for Spine Inj MR#: [id number] Acct: [id number] Name: SALEEM GRAY Rep #: [id number] : 1980 F 37 From: Emiliano [place] MD PCP: Zeferino Leon MD Status: [facility] Study: Fluor Guidance for Spine Inj Date of Exam: 12/09/17 Exam# [id number] Ordering Dr: Noe Lai MD PROCEDURE: Caudal block. DATE OF EXAMINATION: December 09, 2017. INDICATION: Female, 37 years old. Low back pain. FLUOROSCOPY TIME (if supplied): (0:06) minutes/seconds Intraoperative imaging provided for caudal block. RAD/Fluor Guidance for Spine Inj IMPRESSION: Intraoperative imaging provided for caudal block. Electronically Signed: Emiliano [place] MD at 15:57 EST Tel [phone], Service support , CC: Noe Leon MD Floor Supervisor: Signed OFFICE VISIT REPORT Observed: 12/01/2017 Status: F Source: [place] 11:53 PM [facility] [address] [place] [address] OFFICE VISIT Date of Service: 10/14/17 MR#: [id number] Acct: [id number] Patient: SALEEM GRAY Rep #: [id number] : 1980 Provider: Amparo Hitchcock MD Age/Sex: 37/F Location[place] [facility] Status: Signed Intake Vital Signs10/14/17 Weight: 264 [...] Note Patient here for weight check. 12/01/17 1334 <Electronically signed by Amparo Hitchcock MD> Date Amparo Hitchcock MD [facility] Signature: Date (if applicable) CC: ORTHOPEDIC VISIT Observed: 11/14/2017 Status: F Source: [place] REPORT 8:19 AM [facility] [address] [place] [address] OFFICE VISIT Date of Service: 11/13/17 MR#: [id number] Acct: [id number] Name: SALEEM GRAY Rep #: [id number] : 1980 Provider: Jackson Brown DO Age/Sex: 37/F [place] [facility] Status: Signed Intake Intake Visit Reasons: LOW [...] pt on the right track because of [facility] is just wasting her time ans mine. same restrictions. 11/14/17 0819 <Electronically signed by Jackson Brown DO> Date Jackson rBown DO Mauricio Signature: Date (if applicable) CC: EFFICIENCY EXPERT OFFICE VISIT Observed: 11/07/2017 Status: F Source: [place] REPORT 3:41 PM [facility] [address] [place] [address] OFFICE VISIT Date of Service: 11/07/17 MR#: [id number] Acct: [id number] Name: SALEEM GRAY Rep #: [id number] : 1980 Provider: JEANNIE Aden Age/Sex: 37/F Location: [facility] Status: Signed Intake Vital Signs11/07/17 Height 5 [...] abortions Past Pregnancies Del. DatName GA/WeeksOutcome Route [facility] LgAnestheAKel LocaProviderFOB e ht en ia tn Unknown C-sectio8 lbs 6 [facility] 2 Jemma judge oz Marin e HPI [...] RTO annual exam, prn with problems 11/07/17 7561 <Electronically signed by Marisa THORNE> Date Marisa THORNE Cosigner Signature: Date (if applicable) CC: HOSP Observed: 10/23/2017 Status: COMPLETED Source: [place] 12:00 AM [facility] REPOSITORY [facility] (FAMPWS) SALEEM GRAY ([id number]) 1980 F Date Time Provider Department 10/23/17 Krystle MEDRANO) FAMKentrellWS During your visit today, we recorded the following information about you: Bridget Leon Cma 10/24/2017 9:36 AM Signed Message from [employer]: Original authorizing provider: JONNY Contreras would like a refill of the following medications: LORazepam (ATIVAN) 0.5 mg tab [Krystle Medrano PA-C] Preferred pharmacy: [facility] [place], [place] [id number] - [address] [facility] - [phone] [id number] Comment: Bridget Leon Cma 10/24/2017 9:40 [...] prescriptions have been approved and faxed to [facility]: Signed Prescriptions Disp Refills LORazepam (ATIVAN) 0.5 [...] SEVERITY SOURCE 09/30/2018 Drug No Known Unknown [facility] Allergy/416 Allergies/C59023 Hospital 388950(SNOM 0388(RXNORM) Repository ED CT) Drug NO KNOWN [facility] Class/42796 ALLERGIES [facility] 1003(SNOMED Repository CT) ENCOUNTERS ENCOUNTERS ADMIT/DISCHARGE ACCOUNT ADMITTING ENCOUNTER LOCATION SOURCE NUMBER CLASS 09/30/2018/09/30/20 [id number] Emergency [address] ing:ED Repository 09/30/2018 [id number] Ambulatory [facility] ing:LAB.FUTUR Repository E 09/29/2018/09/30/20 [id number] Ambulatory [address] Repository 09/18/2018 [id number] [facility] ing[facility]DC Repository 08/28/2018/09/03/[id number] ing:DC Repository 08/21/2018/08/22/20 [id number] Ambulatory [address] Repository 07/25/2018 [id number] Ambulatory [facility] ing:LAB.FUTUR Repository E 07/24/2018 [id number] [facility] ing:LAB Repository 07/23/2018/07/23/20 [id number] Ambulatory BMSBuilding:[address] Repository 07/22/2018/07/23/[id number] [facility], [address] ing:PCURoom: Repository [id number]: 1 07/22/[id number] [facility], Ambulatory BMSBuilding:Ivan Zee MS.[facility] Repository 07/22/[id number] [facility], Ambulatory BMSBuilding:Ivan Zee MS.[facility] Repository 07/21/2018/07/22/20 [id number] Ambulatory [address] Repository 07/15/2018 [id number] Ambulatory [facility] Hospital ing:LAB.FUTUR Repository E 07/04/2018 [id number] Ambulatory [facility] Hospital ing:EMPH Repository 06/10/2018 [id number] Ambulatory BMSBuilding:B Bricelyn MS.[facility] Hospital Repository 06/03/2018/06/04/20 [id number] Ambulatory [address] Repository 05/26/2018 [id number] Ambulatory [facility] Hospital ing:LABSPEC Repository 05/26/2018/05/26/20 [id number] Ambulatory BMSBuilding:B Moreno [address] Hospital Repository 05/26/2018/05/26/20 [id number] Ambulatory BMSBuilding:B Bricelyn 18 MS.[facility] Hospital Repository 05/01/2018 [id number] Ambulatory [facility] Hospital ing:RAD Repository 05/01/2018/05/02/20 [id number] Ambulatory [address] Repository 03/10/2018/03/11/20 [id number] Ambulatory [address] Repository 03/09/2018/03/09/20 [id number] Emergency [address] Hospital ing:ED Repository 02/03/2018/02/04/20 [id number] [facility] [address] [facility]SDC Repository 12/27/2017/12/27/19 [id number] Ambulatory BMSBuilding:B Moreno 18 MS.[facility] Repository 12/13/2017 [id number] Ambulatory [facility] Hospital ing:CT Repository 12/13/2017 [id number] Ambulatory [facility] Hospital ing:LAB Repository 12/13/2017/12/13/19 [id number] Ambulatory [address] Repository 12/09/2017/12/09/19 [id number] Ambulatory Bricelyn Bricelyn 18 [facility] ing:SDCRoom: Repository AC20 11/13/2017/11/13/19 [id number] Ambulatory BMSBuilding:B Bricelyn 18 MS.[facility] Repository 11/07/2017/11/07/19 [id number] Ambulatory BMSBuilding:B Bricelyn 18 MS.[facility] Repository 10/14/2017/10/14/20 [id number] Ambulatory BMSBuilding:B [address] 17 MS.[facility] Repository PAYERS PAYERS ENCOUNTER GUARANTOR PAYER SUBSCRIBER SOURCE 09/30/2018 LORILIE B Primary LORILIE B Moreno [id number] Insurance:[facility] BENNETTDOB: [facility] [id number] Number: Repository [id number]: ([phone] [id number] [phone] (HP) Date:4875-00-49AK [address], [place] [address]UT: 09/30/2018 Secondary LORILIE B Moreno Insurance:[facility] MUTUAL BENNETTDOB: [facility] [id number] Hospital Number: Repository [id number] Date:8978-82-03VZ [address] [address]JVT[place], [place] [address]AL: CHECK WEBSITE 09/30/2018 Tertiary NOT GIVENUNK Moreno Insurance:SELF PAY [facility] Number: Effective Repository Date:2018-09-30 09/30/2018 LORILIE B Primary Insurance:[facility] LORILIE B Moreno [id number] [facility] [id number] Number: Repository [address]Syc: (262) [id number] [phone] (HP) Date:6081-33-01RT [address] [address]XOWBOFNEQ, [place] [address]BZ: CHECK WEBSITE 09/30/2018 Secondary NOT GIVENUNK Bricelyn Insurance:SELF PAY [facility] Number: Effective Repository Date:2018-07-28 09/18/2018 LORILIE B Primary Insurance:[facility] LORFOREIGNE Ivan Moreno [id number] [facility] BENNETTDOB: [facility] KARTHIK PAZ [facility] [id number] Number: Repository [address]Ujc: 330 [id number] [phone] () Date:0762-08-76MO [address] [address]AKX[place], [place] [address]DF: CHECK WEBSITE 09/18/2018 Secondary NOT GIVENUNK Moreno Insurance:SELF PAY [facility] Number: Effective Repository Date:2018-09-04 08/28/2018 LORILIE B Primary Insurance:[facility] LORILIE B Moreno [id number] [facility] BENNETTDOB: [facility] ROMSIER[facility] CENTERNevaeh [facility]EC[facility] [id number] Number: Repository [address]Xsv: 330 [id number] [phone] () Date:6802-28-42OV [address] [address]ZXUSVXXKV, [place] [address]IW: CHECK WEBSITE 08/28/2018 Secondary NOT GIVENUNK Moreno Insurance:SELF PAY [facility] Number: Effective Repository Date:2018-08-13 07/25/2018 LORILIE B Primary Insurance:[facility] JEMMAE Ivan Bricelyn [id number] [facility] BENNETTDOB: [facility] KARTHIK BYRNEC[facility] Island Hospital [id number] Number: Repository [address]Jxl: 330 [id number] [phone] () Date:3140-96-37GS [address] [address]ZEKGQEOI, [place] [address]RH: CHECK WEBSITE 07/25/2018 Secondary NOT GIVENUNK Bricelyn Insurance:SELF PAY [facility] Number: Effective Repository Date:2018-07-25 07/24/2018 LORILIE B Primary Insurance:[facility] LORFOREIGNE B Bricelyn [id number] [facility] BENNETTDOB: [facility] ROMSIER[facility] HEALTH CENTERNevaeh [facility]EC[facility] [id number] Number: Repository [address]Opt: 330 [id number] [phone] () Date:5202-25-62GX [address] [address]WGZQZDDGO, [place] [address]DB: CHECK WEBSITE 07/24/2018 Secondary NOT GIVENUNK Bricelyn Insurance:SELF PAY [facility] Number: Effective Repository Date:2018-07-24 07/23/2018 LORILIE B Primary Insurance:[facility] LORILIE B Bricelyn [id number] [facility] BENNETTDOB: Community NORMANDY DRAPT SERVICESHahnemann University Hospital [id number] Number: Repository [address]Oas: 330 [id number] [phone] () Date:5920-57-55OG [address] [address], [place] [address]FN: CHECK WEBSITE 07/23/2018 Secondary NOT GIVENUNK Bricelyn Insurance:SELF PAY [facility] Number: Effective Repository Date:2018-07-23 07/22/2018 LORILIE B Primary Insurance:[facility] LORILIE B Moreno [id number] [facility] BENNETTDOB: [facility] NORMANDY DRAPT SERVICESHahnemann University Hospital [id number] Number: Repository [address]Reg: 330 [id number] [phone] () Date:6094-46-29UH [address] [address]ZTX[place], [place] [address]KX: CHECK WEBSITE 07/22/2018 Secondary NOT GIVENUNK Bricelyn Insurance:SELF PAY [facility] Number: Effective Repository Date:2018-07-22 07/22/2018 LORILIE B Primary Insurance:[facility] LORILIE B Moreno [id number] [facility] BENNETTDOB: [facility] NORMANDY DRAPT SERVICESHahnemann University Hospital [id number] Number: Repository [address]Bxa: 330 [id number] [phone] () Date:7225-91-99IA [address] [address]OTNV, [place] [address]ZJ: CHECK WEBSITE 07/22/2018 Secondary NOT GIVENUNK Moreno Insurance:SELF PAY [facility] INS[facility]ANCEPolicy Hospital Number: Effective Repository Date:2018-07-22 07/22/2018 LORILIE B Primary Insurance:[facility] SALEEM Love Bricelyn [id number] [facility] BENNETTDOB: Formerly [facility] [id number] Number: Repository [id number]: 330 [id number] [phone] () Date:6793-10-83TZ [address] [address]OD, [place] [address]VR: CHECK WEBSITE 07/22/2018 Secondary NOT GIVENUNK Bricelyn Insurance:SELF PAY [facility] Number: Effective Repository Date:2018-07-22 07/15/2018 LORILIE B Primary Insurance:[facility] SALEEM Love Moreno [id number] [facility] [id number] Number: Repository [address]Mey: 330 [id number] [phone] () Date:3935-78-22AD [address] [address]EUNJGFVRD, [place] [address]VS: CHECK WEBSITE 07/15/2018 Secondary NOT GIVENUNK Bricelyn Insurance:SELF PAY [facility] Number: Effective Repository Date:2018-07-08 07/04/2018 LORILIE B Primary NOT GIVENUNK Bricelyn [id number] Insurance:SELF PAY [address] Number: Effective Repository [id number]: 330) Date:2018-07-04 [phone] () 06/10/2018 LORILIE B Primary Insurance:[facility] SALEEM Love Moreno [id number] [facility] BENNETTDOB: Formerly [facility] [id number] Number: Repository [address]Ttm: 330 [id number] [phone] () Date:5075-35-33ZF [address] [address]ZTKNRSJYX, [place] [address]UC: CHECK WEBSITE 06/10/2018 Secondary NOT GIVENUNK Bricelyn Insurance:SELF PAY [facility] Number: Effective Repository Date:2018-05-30 05/26/2018 LORILIE B Primary Insurance:[facility] JEMMAE Ivan Moreno [id number] [facility] BENNETTDOB: [facility]ly [facility] [id number] Number: Repository [address]Pny: 330 [id number] [phone] () Date:6832-37-34YG [address] [address]PDEXVKSVP, [place] [address]BA: CHECK WEBSITE 05/26/2018 Secondary NOT GIVENUNK Bricelyn Insurance:SELF PAY [facility] Number: Effective Repository Date:2018-05-26 05/26/2018 LORILIE B Primary Insurance:[facility] LORILIE Ivan Bricelyn [id number] [facility] BENNETTDOB: [facility] [id number] Number: Repository [address]Jso: 330 [id number] [phone] () Date:5837-52-17IN [address] [address]BDGYEJPSP, [place] [address]BK: CHECK WEBSITE 05/26/2018 Secondary NOT GIVENUNK Bricelyn Insurance:SELF PAY [facility] Number: Effective Repository Date:2018-05-26 05/26/2018 LORILIE B Primary Insurance:[facility] LORILIE Ivan Bricelyn [id number] [facility] BENNETTDOB: Formerly [facility] CENTERNevaeh [facility] [id number] Number: Repository [address]Vmc: 330 [id number] [phone] () Date:8024-03-92RC [address] [address]NLPQXXQER, [place] [address]KR: CHECK WEBSITE 05/26/2018 Secondary NOT GIVENUNK Bricelyn Insurance:SELF PAY [facility] Number: Effective Repository Date:2018-05-26 05/01/2018 LORILIE B Primary Insurance:[facility] JEMMAE B Moreno [id number] [facility] BENNETTDOB: [facility]ly [facility] [id number] Number: Repository [address]Szk: 330 [id number] [phone] () Date:0857-09-11WU [address] [address]PDDALUIVP, [place] [address]ON: CHECK WEBSITE 05/01/2018 Secondary NOT GIVENUNK Moreno Insurance:SELF PAY [facility] Number: Effective Repository Date:2018-05-01 03/09/2018 LORILIE B Primary Insurance:[facility] SALEEM Mayer [id number] [facility] BENNETTDOB: Formerly [facility] [address] SERVICESH[facility] [id number] Number: Repository [address]Xyy: 330 [id number] [phone] () Date:5930-37-44GW [address] [address]SDVGFQMDH, [place] [address]KU: CHECK WEBSITE 03/09/2018 Secondary NOT GIVENUNK Moreno Insurance:SELF PAY [facility] Number: Effective Repository Date:2018-03-09 02/03/2018 LORILIE B Primary Insurance:[facility] SALEEM Monsonoster [id number] RUSTNETTDOB: Formerly [facility] NORMANDNevaeh BY[facility]NEHIGHL[facility] SERVICESHahnemann University Hospital [id number] Number: Repository [address]Mwf: 330 [id number] [phone] () Date:5816-93-26QM [address] [address]FVDWHLTQW, [place] [address]QF: CHECK WEBSITE 02/03/2018 Secondary NOT GIVENUNK Bricelyn Insurance:SELF PAY [facility] Number: Effective Repository Date:2018-01-27 12/27/2017 LORILIE Primary Insurance:[facility] SALEEM Mayer [id number] [facility] [address] SERVICESHahnemann University Hospital [id number] Number: Repository [address]Rnu: 330 [id number] [phone] () Date:9959-68-14GV [address] [address]FIRTOKMVE, [place] [address]YM: CHECK WEBSITE 12/27/2017 Secondary NOT GIVENUNK Bricelyn Insurance:SELF PAY [facility] Number: Effective Repository Date:2017-12-26 12/13/2017 LORILIE Primary Insurance:[facility] SALEEM [id number] [facility] BENNETTDOB: Formerly [facility] KARTHIK PAZ [facility] [id number] Number: Repository [address]Zan: 330 [id number] [phone] () Date:5183-70-44HJ [address] [address]TSKXRUZTQ, [place] [address]KK: CHECK WEBSITE 12/13/2017 Secondary NOT GIVENUNK Bricelyn Insurance:SELF PAY [facility] Number: Effective Repository Date:2017-12-13 12/13/2017 LORILIE Primary Insurance:[facility] SALEEM [id number] [facility] BENNETTDOB: Formerly [facility] ROMSI[facility] CENTERNevaeh BYRNEC[facility] [id number] Number: Repository [address]Doi: 330 [id number] [phone] () Date:3961-09-72AZ [address] [address]IZNXYDYGD, [place] [address]YL: CHECK WEBSITE 12/13/2017 Secondary NOT GIVENUNK Moreno Insurance:SELF PAY [facility] Number: Effective Repository Date:2017-12-13 12/09/2017 LORILIE Primary Insurance:[facility] SALEEM [id number] [facility] BENNETTDOB: Formerly [facility] [id number] Number: Repository [address]Bed: 330 [id number] [phone] () Date:4925-53-62JM [address] [address]EEWCJETCG, [place] [address]ZR: CHECK WEBSITE 12/09/2017 Secondary NOT GIVENUNK Bricelyn Insurance:SELF PAY [facility] Number: Effective Repository Date:2017-12-03 11/13/2017 LORILIE Primary NOT GIVENUNK Moreno [id number] Insurance:SELF PAY [address] Number: Effective Repository [phone]: 330) Date:2017-11-14 [phone] () 11/07/2017 LORILIE Primary Insurance:[facility] SALEEM [facility] BENNETTDOB: [facility] [id number] Number: Repository [address]Vvo: [phone]) [id number] [phone] () Date:8103-15-43EV [address] [address]OKUVVBVOI, [place] [address]FL: CHECK WEBSITE 11/07/2017 Secondary NOT GIVENUNK Bricelyn Insurance:SELF PAY [facility] Number: Effective Repository Date:2017-10-06 10/14/2017 LORILIE Primary NOT GIVENUNK Moreno [id number] Insurance:SELF PAY [address] Number: Effective Repository [id number]: 330) Date:2017-10-14 [phone] ()
== END 2018-09-30 15:52 | disposition home or self-care (01) ==
PROVIDERS: Emergency Provider Emergency Medicine; Family Provider Family Medicine; PCP Family Medicine
DX: S50.12XA Contusion of left forearm, initial encounter (principal); S80.02XA Contusion of left knee, initial encounter; W20.8XXA Other cause of strike by thrown, projected or falling object, initial encounter; Y93.9 Activity, unspecified; Y92.003 Bedroom of unspecified non-institutional (private) residence as the place of occurrence of the external cause; Y99.9 Unspecified external cause status; E66.9 Obesity, unspecified; E11.9 Type 2 diabetes mellitus without complications
CPT/HCPCS: 73090; 99282

== ENCOUNTER → 2018-11-26 11:43 | Outpatient (CLI) | payer OTHER, SELFPAY ==
[2018-11-25 14:19] VITALS: BMI 46.5
--- NOTE | 2018-11-26 11:47 | RAD_ITS ---
HISTORY: LUMBAR PAIN W/ RADIATION TOWARD LLE. HX LUMBAR DISK DX COMPARISON: None FINDINGS: XR Spine Lumbar 3 views Lumbar vertebra are normal in height. No fracture or acute osseous abnormality. Lumbar hyperlordosis. The disc space heights appear preserved. L5-S1 facet joint arthritis, worse on the right. No spondylolisthesis. Marginal sclerosis of the SI joints bilaterally. Surgical clips within gallbladder fossa. RAD/Lumbar Spine 2 or 3 Views IMPRESSION: 1. L5-S1 facet joint arthritis. No associated spondylolisthesis. 2. Lumbar hyperlordosis. at 0450 Reported and signed by: Umesh Hernandes MD Electronically Signed: Umesh Hernandes, at 4:49 EST Tel , Service support ,
--- OUTSIDE RECORDS SUMMARY | 2019-01-28 09:39 | XMS RPT_ITS ---
:1980 Author Organization OHIP Support Name Relationship Address Phone CORDELIA NYE Unavailable VANESSA REAR + [place] [address] [facility] Unavailable [address] + [place] [address] PARRIS CORDELIA Unavailable VANESSA REAR + [place] [address] [facility] Unavailable [address] + [place] [address] PARRIS CORDELIA Unavailable VANESSA REAR + [place] [address] [facility] Unavailable [address] + [place] [address] PARRIS CORDELIA Unavailable VANESSA REAR + [place] [address] [facility] Unavailable [address] + [place] [address] PARRIS CORDELIA Unavailable VANESSA REAR + [place] [address] [facility] Unavailable [address] + [place] [address] NYE, CORDELIA Unavailable VANESSA REAR + [place] [address] [facility] Unavailable [address] + [place] [address] PARRIS CORDELIA Unavailable VANESSA REAR + [place] [address] [facility] Unavailable [address] + [place] [address] NYE, CORDELIA Unavailable VANESSA REAR + [place] [address] [facility] Unavailable [address] + [place] [address] NYE, CORDELIA Unavailable VANESSA REAR + [place] [address] [facility] Unavailable [address] + [place] [address] NYE, CORDELIA Unavailable VANESSA REAR + [place] [address] [facility] Unavailable [address] + [place] [address] NYE, CORDELIA Unavailable VANESSA REAR + [place] [address] [facility] Unavailable [address] + [place] [address] NYE, CORDELIA Unavailable VANESSA REAR + [place] [address] [facility] Unavailable [address] + [place] [address] NYE, CORDELIA Unavailable VANESSA REAR + [place] [address] [facility] Unavailable [address] + [place] [address] NYE, CORDELIA Unavailable VANESSA REAR + [place] [address] [facility] Unavailable [address] + [place] [address] NYE, CORDELIA Unavailable VANESSA REAR + [place] [address] [facility] Unavailable [address] + [place] [address] NYE, CORDELIA Unavailable VANESSA REAR + [place] [address] [facility] Unavailable [address] + [place] [address] NYE, CORDELIA Unavailable VANESSA REAR + [place] [address] [facility] Unavailable [address] + [place] [address] NYE, CORDELIA Unavailable VANESSA REAR + [place] [address] [facility] Unavailable [address] + [place] [address] NYE, CORDELIA Unavailable VANESSA REAR + [place] [address] [facility] Unavailable [address] + [place] [address] NYE, CORDELIA Unavailable VANESSA REAR + [place] [address] [facility] Unavailable [address] + [place] [address] NYE, CORDELIA Unavailable VANESSA REAR + [place] [address] [facility] Unavailable [address] + [place] [address] GRAY, KRYSTA Unavailable [address] [place] [address] [facility] Unavailable [address] + [place] [address] ISAAC, KRYSTA Unavailable [address] + [address] [place] [address] [facility] Unavailable [address] + [place] [address] GRAY, KRYSTA Unavailable [address] + [address] [place] [address] [facility] Unavailable [address] + [place] [address] GRAY, KRYSTA Unavailable Unavailable + [place] [address] [facility] Unavailable [address] + [place] [address] GRAY, KRYSTA Unavailable Unavailable + [place] [address] [facility] Unavailable [address] + [place] [address] GRAY, KRYSTA Unavailable Unavailable + [place] [address] [facility] Unavailable [address] + [place] [address] Care Team Providers Name Role Phone Krystle MEDRANO (PA-C) Attending Unavailable ZEFERINO LEON Attending Unavailable CINDY EDOUARD (CANE BURNER) Attending Unavailable Krystle MEDRANO (PA-C) Attending Unavailable SYDNEY, ZEFERINO J Attending Unavailable SYDNEY, ZEFERINO J Attending Unavailable Krystle MEDRANO (JONNY) Attending Unavailable SYDNEY, ZEFERINO J Attending Unavailable SYDNEY, ZEFERINO J Referring Unavailable SYDNEY, ZEFERINO J Attending Unavailable SYDNEY, ZEFERINO J Attending Unavailable DossiBibiana giron D.C. Attending Unavailable Sydney, Zeferino Referring Unavailable DosBibiana smith D.C. Attending Unavailable [place], Zeferino Referring Unavailable DossiBibiana giron D.C. Attending Unavailable [place], Zeferino Attending Unavailable Sydney, Zeferino Referring Unavailable Sydney, Zeferino Primary Care Unavailable Noe Lai Attending Unavailable Noe Lai Referring Unavailable Sydney, Zeferino Primary Care Unavailable Krystle Medrano Attending Unavailable Krystle Medrano Referring Unavailable [place], Zeferino Primary Care Unavailable Krystle Medrano Attending Unavailable [place], Zeferino Primary Care Unavailable Jackson Brown Attending Unavailable [place], Zeferino Referring Unavailable Sydney, Zeferino Primary Care Unavailable Noe Lai Attending Unavailable Sydney, Zeferino Primary Care Unavailable Ming, Noe Referring Unavailable Sydney, Zeferino Primary Care Unavailable Hermelindo Gauthier Attending Unavailable , RUMA Attending Unavailable RUMA RETANA Referring Unavailable [place], Zeferino Primary Care Unavailable Shannan, Bibiana Gilmore Attending Unavailable Sydney, Zeferino Referring Unavailable Sydney, Zeferino Primary Care Unavailable Santana Yoon Attending Unavailable [place], Zeferino Referring Unavailable Sydney, Zeferino Primary Care Unavailable Santana Yoon Attending Unavailable Santana Yoon Referring Unavailable DosBibiana smith D.C. Attending Unavailable [place], Zeferino Referring Unavailable ASSESSMENT, HEALTH RISK Attending Unavailable ASSESSMENT, HEALTH RISK Referring Unavailable Sydney, Zeferino Primary Care Unavailable Sydney, Zeferino Attending Unavailable [place], Zeferino Primary Care Unavailable [place], Zeferino Referring Unavailable [place], Zeferino Primary Care Unavailable Cade, Yayo Admitting Unavailable Woody Rebolledo Attending Unavailable Cade, Yayo Admitting Unavailable Cade, Yayo Attending Unavailable [place], Zeferino Primary Care Unavailable Cade, Yayo Consulting Unavailable Cade, Yayo Admitting Unavailable Woody Rebolledo Attending Unavailable Sydney, Zeferino Primary Care Unavailable Woody Rebolledo Consulting Unavailable Sydney, Zeferino Attending Unavailable [place], Zeferino Referring Unavailable [place], Zeferino Primary Care Unavailable Sydney, Zeferino Attending Unavailable [place], Zeferino Primary Care Unavailable [place], Zeferino Attending Unavailable Sydney, Zeferino Primary Care Unavailable Sydney, Zeferino Referring Unavailable Sydney, Zeferino Attending Unavailable Sydney, Zeferino Primary Care Unavailable Everette Villalpando Attending Unavailable Yayo Mohamud Referring Unavailable [place], Zeferino Attending Unavailable Sydney, Zeferino Primary Care Unavailable Sydnye, Zeferino Primary Care Unavailable Everette Melo Attending Unavailable PROBLEMS PROBLEMS DATE TYPE CONDITION / CODE ATTENDING STATUS SOURCE 11/26/2018 Unknown M54.5 - Low back Zeferino Leon Active [place] pain / M54.5(ICD-10) Formerly [facility] Hospital Repository 11/26/2018 Unknown M54.17 - Dossie, Bibiana Active [facility] [facility] lumbosacral region / Hospital M54.17(ICD-10) Repository 11/26/2018 Unknown M99.02 - Segmental Dossie, Bibiana Active [place] [facility] dysfunction of Hospital thoracic region / Repository M99.02(ICD-10) 11/26/2018 Unknown M99.05 - Segmental Dossie, Bibiana Active [place] [facility] Community dysfunction of Hospital pelvic region / Repository M99.05(ICD-10) 11/26/2018 Unknown M99.03 - Segmental Dossie, Bibiana Active [facility] 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 Community displacement, lumbar Hospital region / Repository M51.26(ICD-10) 09/17/2018 Unknown E11.9 - Type 2 Zeferino Leon Active [place] diabetes mellitus Community without Hospital complications / Repository E11.9(ICD-10) 05/27/2018 Unknown R35.0 - Frequency of Santana Yoon Active [place] micturition / Community R35.0(ICD-10) Hospital Repository 05/01/2018 Unknown R07.81 - Pleurodynia RUMA RETANA Active [place] / R07.81(ICD-10) [facility]ly [facility] Hospital Repository 12/13/2017 Unknown R20.0 - Anesthesia Medrano, M Active [place] of skin / [facility] R20.0(ICD-10) Hospital Repository PROCEDURES PROCEDURES No Procedure Records FoundRESULTS RESULTS PROGRESS Observed: 12/01/2018 Status: COMPLETED Source: [facility] 2:24 PM [facility] RE[facility]IT[facility] ID: [id number] Author: Zeferino Leon Service: (none) Author Type: Physician Type: Progress Notes Filed: 12/01/2018 2:34 PM Note Text: Patient presents with: Back Pain HPI: Patient presents today for office visit for follow up. Nursing Notes: Juliana Murphy Ma 12/01/2018 2:25 PM Signed RECHECK BACK PAIN: PAIN SCALE: 10 on a scale of 0-10 PAIN CHARACTER: soreness Last adjusted by chiropractor on . Today is the last day of meloxicam. Scheduled to go back to work on . Discussed that if she is not improving, our next step would be physical therapy or consider pain management. No new numbness or weakness. She is still concerned about pain. Discussed trying light duty next week if doing well. MEDICATIONS: Current Outpatient Prescriptions: methylPREDNISolone (MEDROL, TEMO,) 4 mg Dose-Pack Follow dosing instructions, take with food. TENS unit and electrodes cmpk Use as directed meloxicam (MOBIC) 15 mg tablet Take 1 tablet by mouth once daily. With food. PARoxetine (PAXIL) 10 mg tablet Take 1 tablet by mouth once daily. tiZANidine (ZANAFLEX) 4 mg tablet Take 1 tablet by mouth every 8 hours as needed. lisinopril (ZESTRIL, PRINIVIL) 5 mg tablet Take 1 tablet by mouth once daily. hydrOXYzine pamoate (VISTARIL) 25 mg capsule Take 1 capsule by mouth three times daily as needed for Anxiety. COMPOUNDED PRESCRIPTION Urine microalbumin. [id number]: DMIIDo in six to eight weeks blood sugar diagnostic (BLOOD GLUCOSE TEST) test [...] only. Bela: new one placed on 10/03/17 Olzbdvjs-Qy-Chi-Fe-FA ( FORMULA) ORAL Tab Take 1 tablet [...] Relation Age of Onset - Heart Father [place] - Heart Paternal Grandmother TRIPLE BYPASS SURGERY - Cancer Maternal Grandmother LUNG CANCER - Cancer Father PANCREATIC CANCER - Diabetes Maternal Grandfather - Diabetes Father - Alcohol/Drug Mother Social History Marital status: Single Spouse name: Years of education: 12 Number of children: 1 Occupational History Occupation Employer Comment [employer] Student Social History Main Topics Smoking status: [...] other reviewed and negative other than HPI. VITALS: BP 146/82 Pulse 72 Resp 20 Wt 130.2 kg (287 lb) BMI 44.95 kg/m? Last 4 Encounter Wt Readings: Date: Wt: 12/01/2018 130.2 kg (287 lb) 11/26/2018 130.2 kg (287 lb) 11/17/2018 127.5 kg (281 lb) 09/29/2018 126.1 kg (278 lb) PHYSICAL EXAMINATION: General appearance: Well appearing, alert, in no acute distress, well-hydrated, well nourished. Skin: Skin color, texture, turgor normal, no suspicious rashes or lesions BACK: Normal curvature of spine. No spine tenderness. Straight leg test negative. Deep tendon reflexes 2+/4 at patellas. Normal lower extremity strength. ASSESSMENT/PLAN: 1. Recurrent low back pain - ICD9: 724.2, ICD10: M54.5 Chronic low back pain - call if any issues. Off work an additional week - CONSULT TO PHYSICAL THERAPY Zeferino Leon MD CNOV Observed: 12/01/2018 Status: COMPLETED Source: [facility] 2:20 PM [facility] REPOSITORY Office Visit ([facility]) SALEEM GRAY ([id number]) 1980 F Date Time Provider Department 12/01/18 2:20 PM [facility] During your visit today, we recorded the following information about you: Pulse Respiration Blood pressure Weight 72/minute 20/minute 146/82 130.2 kg Juliana Murphy Ma 12/01/2018 2:25 PM Signed RECHECK BACK PAIN: PAIN SCALE: 10 on a scale of 0-10 PAIN CHARACTER: soreness Last adjusted by chiropractor on . Today is the last day of meloxicam. Scheduled to go back to work on . Zeferino Leon MD 12/01/2018 2:34 PM Signed Patient presents with: Back Pain HPI: Patient presents today for office visit for follow up. Nursing Notes: Juliana Murphy Ma 12/01/2018 2:25 PM Signed RECHECK BACK PAIN: PAIN SCALE: 10 on a scale of 0-10 PAIN CHARACTER: soreness Last adjusted by chiropractor on . Today is the last day of meloxicam. Scheduled to go back to work on . Discussed that if she is not improving, our next step would be physical therapy or consider pain management. No new numbness or weakness. She is still concerned about pain. Discussed trying light duty next week if doing well. MEDICATIONS: Current Outpatient Prescriptions: methylPREDNISolone (MEDROL, TEMO,) 4 mg Dose-Pack Follow dosing instructions, take with food. TENS unit and electrodes cmpk Use as directed meloxicam (MOBIC) 15 mg tablet Take 1 tablet by mouth once daily. With food. PARoxetine (PAXIL) 10 mg tablet Take 1 tablet by mouth once daily. tiZANidine (ZANAFLEX) 4 mg tablet Take 1 tablet by mouth every 8 hours as needed. lisinopril (ZESTRIL, PRINIVIL) 5 mg tablet Take 1 tablet by mouth once daily. hydrOXYzine pamoate (VISTARIL) 25 mg capsule Take 1 capsule by mouth three times daily as needed for Anxiety. COMPOUNDED PRESCRIPTION Urine microalbumin. [id number]: DMIIDo in six to eight weeks blood sugar diagnostic (BLOOD GLUCOSE TEST) test [...] only. Bela: new one placed on 10/03/17 Fjqhgusd-Sh-Ipb-Fe-FA ( FORMULA) ORAL Tab Take 1 tablet [...] Relation Age of Onset - Heart Father [place] - Heart Paternal Grandmother TRIPLE BYPASS SURGERY - Cancer Maternal Grandmother LUNG CANCER - Cancer Father PANCREATIC CANCER - Diabetes Maternal Grandfather - Diabetes Father - Alcohol/Drug Mother Social History Marital status: Single Spouse name: Years of education: 12 Number of children: 1 Occupational History Occupation Employer Comment [employer] Student Social History Main Topics Smoking status: [...] other reviewed and negative other than HPI. VITALS: BP 146/82 Pulse 72 Resp 20 Wt 130.2 kg (287 lb) BMI 44.95 kg/m? Last 4 Encounter Wt Readings: Date: Wt: 12/01/2018 130.2 kg (287 lb) 11/26/2018 130.2 kg (287 lb) 11/17/2018 127.5 kg (281 lb) 09/29/2018 126.1 kg (278 lb) PHYSICAL EXAMINATION: General appearance: Well appearing, alert, in no acute distress, well-hydrated, well nourished. Skin: Skin color, texture, turgor normal, no suspicious rashes or lesions BACK: Normal curvature of spine. No spine tenderness. Straight leg test negative. Deep tendon reflexes 2+/4 at patellas. Normal lower extremity strength. ASSESSMENT/PLAN: 1. Recurrent low back pain - ICD9: 724.2, ICD10: M54.5 Chronic low back pain - call if any issues. Off work an additional week - CONSULT TO PHYSICAL THERAPY Zeferino Leon MD Referring Provider: SELF [200] Allergies As of Date: 12/01/2018 (No Known Allergies) Date Reviewed: 12/01/2018 Reviewed by: Juliana Murphy Ma - Fully Assessed Reason for Visit: Back Pain [12] Primary Visit Diagnosis:Recurrent low back pain [M54.5] Order(s):CONSULT TO PHYSICAL THERAPY [9032] Order #: [id number]: 1 tiZANidine (ZANAFLEX) 4 mg tabletTake 1 tablet by mouth every 8 hours as needed.Disp: 20 tabletRfl: 1 Prescriptions as of 12/01/2018 Sig: TIZANIDINE 4 MG TABLET Take 1 tablet by mouth every * METHYLPREDNISOLONE 4 MG TABLE* Follow dosing instructions, t* TENS UNIT AND ELECTRODES COMB* Use as directed MELOXICAM 15 MG TABLET Take 1 tablet by mouth once d* PAROXETINE 10 MG TABLET Take 1 tablet by mouth once d* LISINOPRIL 5 MG TABLET Take 1 tablet by mouth once d* HYDROXYZINE PAMOATE 25 MG CAP* Take 1 capsule by mouth three* COMPOUNDED PRESCRIPTION Urine microalbumin. hba1c DX* BLOOD [...] once d* Problem List As Of Date 12/01/2018 Noted Resolved SUPERVIS NORMAL 1ST PREG [Z34.00] [...] (obstructive sleep apnea) [G47.33] INVALID FOR* More... Microalbuminuria [R80.9] INVALID FOR* Visit Notes: >> Juliana Murphy Ma [facility] Dec 01, 2018 2:11 PM Status: Signed RECHECK BACK PAIN: PAIN SCALE: 10 on a scale of 0-10 PAIN CHARACTER: soreness Last adjusted by chiropractor on . Today is the last day of meloxicam. Scheduled to go back to work on . Prescriptions ordered this encounter Disp Refills Start End TIZANIDINE 4 MG TABLET 20 t* 1 12/01/2018 Route: ORAL Sig: Take 1 tablet by mouth every 8 hours as needed. Medications Discontinued During This Encounter tiZANidine (ZANAFLEX) 4 mg tablet 20 t* 1 10/13/2018 12/01/2018 Route: ORAL Sig: Take 1 tablet by mouth every 8 hours as needed. Disc: Reason for discontinue is not on file. Disposition: Return in about 1 week (around 12/08/2018). Follow-up and Disposition History Recorded Letter Text [facility] [address] [place], [place] [address] Aleaforeigndinh Love [address] [facility] [address] Clinic #: [id number] 12/01/2018 Off work until seen again on 12/08/18. Sincerely: Zeferino Leon MD Encounter Status:Closed by ZEFERINO LEON MD on 12/01/18 LUMBAR SPINE 2 OR 3 Observed: 11/26/2018 Status: F Source: [place] VIEWS 11:47 AM [facility] REPOSITORY [facility] Imaging Services [address] [place], [place] [id number] Lumbar Spine 2 or 3 Views MR#: [id number] Acct: [id number] Name: SALEEM GRAY Rep #: [id number] : 1980 F 38 From: Umesh Hernandes MD PCP: Zeferino Leon MD Status: REG CLI Study: Lumbar Spine 2 or 3 Views Date of Exam: 11/26/18 Exam# [id number] Ordering Dr: Zeferino Leon MD HISTORY: LUMBAR PAIN W/ RADIATION TOWARD LLE. HX LUMBAR DISK DX COMPARISON: None FINDINGS: XR Spine Lumbar 3 views Lumbar vertebra are normal in height. No fracture or acute osseous abnormality. Lumbar hyperlordosis. The disc space heights appear preserved. L5-S1 facet joint arthritis, worse on the right. No spondylolisthesis. Marginal sclerosis of the SI joints bilaterally. Surgical clips within gallbladder fossa. RAD/Lumbar Spine 2 or 3 Views IMPRESSION: 1. L5-S1 facet joint arthritis. No associated spondylolisthesis. 2. Lumbar hyperlordosis. at 0450 Reported and signed by: Umesh Hernandes MD Electronically Signed: Umesh Hernandes, at 4:49 EST Tel , Service support , CC: Zeferino Leon MD Financial Administration Officer: Signed PROGRESS Observed: 11/26/2018 Status: COMPLETED Source: ANTIOCH 11:22 AM [facility] REPOSITORY [facility] ID: [id number] Author: Zeferino Leon Service: (none) Author Type: Physician Type: Progress Notes Filed: 11/26/2018 11:32 AM Note Text: Patient presents with: Back Pain HPI: Patient presents today for office visit for follow up. Nursing Notes: Juliana Murphy Ma 11/26/2018 11:22 AM Signed BACK PAIN: Patient still has a lot of tightness and pressure. Going to chiropractor twice a week, which helps. Taking the meloxicam. Would like to get a TENS unit. Still out of work. She is still having some pain. Chiropractic does help. We discussed light duty but that still involves bending and twisting etc. No radicular symptoms. No numbness or weakness. Wonders if we need to give it another week. She is also getting some migraines although her sleep schedule has changed. Last hba1c was 6.2 MEDICATIONS: Current Outpatient Prescriptions: meloxicam (MOBIC) 15 mg tablet Take 1 tablet by mouth once daily. With food. PARoxetine (PAXIL) 10 mg tablet Take 1 tablet by mouth once daily. tiZANidine (ZANAFLEX) 4 mg tablet Take 1 tablet by mouth every 8 hours as needed. lisinopril (ZESTRIL, PRINIVIL) 5 mg tablet Take 1 tablet by mouth once daily. hydrOXYzine pamoate (VISTARIL) 25 mg capsule Take 1 capsule by mouth three times daily as needed for Anxiety. COMPOUNDED PRESCRIPTION Urine microalbumin. [id number]: DMIIDo in six to eight weeks blood sugar diagnostic (BLOOD GLUCOSE TEST) test [...] only. Bela: new one placed on 10/03/17 Pzyfkeab-Wa-Tmm-Fe-FA ( FORMULA) ORAL Tab Take 1 tablet [...] Relation Age of Onset - Heart Father [place] - Heart Paternal Grandmother TRIPLE BYPASS SURGERY - Cancer Maternal Grandmother LUNG CANCER - Cancer Father PANCREATIC CANCER - Diabetes Maternal Grandfather - Diabetes Father - Alcohol/Drug Mother Social History Marital status: Single Spouse name: Years of education: 12 Number of children: 1 Occupational History Occupation Employer Comment [employer] Student Social History Main Topics Smoking status: [...] other reviewed and negative other than HPI. VITALS: BP 128/68 Pulse 76 Resp 16 Wt 130.2 kg (287 lb) BMI 44.95 kg/m? Last 4 Encounter Wt Readings: Date: Wt: 11/26/2018 130.2 kg (287 lb) 11/17/2018 127.5 kg (281 lb) 09/29/2018 126.1 kg (278 lb) 08/21/2018 126.1 kg (278 lb) PHYSICAL EXAMINATION: General appearance: Well appearing, alert, in no acute distress, well-hydrated, well nourished. Skin: Skin color, texture, turgor normal, no suspicious rashes or lesions Head: Normocephalic, no masses, lesions, tenderness or abnormalities BACK: Normal curvature of spine. No spine tenderness. Tender over left lower back. Straight leg test negative. Deep tendon reflexes 2+/4 at patellas. Normal lower extremity strength. ASSESSMENT/PLAN: 1. Lumbar pain - ICD9: 724.2, ICD10: M54.5 Lumbosacral sprain - Ice for localized tenderness - Medrol dose pack - Patient given instructions tens unit. Get xray. Continue chiropractic. - XR LUMBAR GENERAL 3V AP/LAT/L5-S1 - METHYLPREDNISOLONE 4 MG TABLETS IN A DOSE PACK Zeferino Leon MD CNOV Observed: 11/26/2018 Status: COMPLETED Source: ANTIOCH 11:00 AM [facility] REPOSITORY [facility] ([id number]) 1980 F Date Time Provider Department 11/26/18 11:00 AM ZEFERINO LEON During your visit today, we recorded the following information about you: Pulse Respiration Blood pressure Weight 76/minute 16/minute 128/68 130.2 kg Juliana Jeffrey Ramirez 11/26/2018 11:22 AM Signed BACK PAIN: Patient still has a lot of tightness and pressure. Going to chiropractor twice a week, which helps. Taking the meloxicam. Would like to get a TENS unit. Still out of work. Zeferino Leon MD 11/26/2018 11:32 AM Signed Patient presents with: Back Pain HPI: Patient presents today for office visit for follow up. Nursing Notes: Juliana Murphy Ma 11/26/2018 11:22 AM Signed BACK PAIN: Patient still has a lot of tightness and pressure. Going to chiropractor twice a week, which helps. Taking the meloxicam. Would like to get a TENS unit. Still out of work. She is still having some pain. Chiropractic does help. We discussed light duty but that still involves bending and twisting etc. No radicular symptoms. No numbness or weakness. Wonders if we need to give it another week. She is also getting some migraines although her sleep schedule has changed. Last hba1c was 6.2 MEDICATIONS: Current Outpatient Prescriptions: meloxicam (MOBIC) 15 mg tablet Take 1 tablet by mouth once daily. With food. PARoxetine (PAXIL) 10 mg tablet Take 1 tablet by mouth once daily. tiZANidine (ZANAFLEX) 4 mg tablet Take 1 tablet by mouth every 8 hours as needed. lisinopril (ZESTRIL, PRINIVIL) 5 mg tablet Take 1 tablet by mouth once daily. hydrOXYzine pamoate (VISTARIL) 25 mg capsule Take 1 capsule by mouth three times daily as needed for Anxiety. COMPOUNDED PRESCRIPTION Urine microalbumin. [id number]: DMIIDo in six to eight weeks blood sugar diagnostic (BLOOD GLUCOSE TEST) test [...] only. Bela: new one placed on 10/03/17 Uwdebyik-Xv-Xhh-Fe-FA ( FORMULA) ORAL Tab Take 1 tablet [...] Relation Age of Onset - Heart Father [place] - Heart Paternal Grandmother TRIPLE BYPASS SURGERY - Cancer Maternal Grandmother LUNG CANCER - Cancer Father PANCREATIC CANCER - Diabetes Maternal Grandfather - Diabetes Father - Alcohol/Drug Mother Social History Marital status: Single Spouse name: Years of education: 12 Number of children: 1 Occupational History Occupation Employer Comment [employer] Student Social History Main Topics Smoking status: [...] other reviewed and negative other than HPI. VITALS: BP 128/68 Pulse 76 Resp 16 Wt 130.2 kg (287 lb) BMI 44.95 kg/m? Last 4 Encounter Wt Readings: Date: Wt: 11/26/2018 130.2 kg (287 lb) 11/17/2018 127.5 kg (281 lb) 09/29/2018 126.1 kg (278 lb) 08/21/2018 126.1 kg (278 lb) PHYSICAL EXAMINATION: General appearance: Well appearing, alert, in no acute distress, well-hydrated, well nourished. Skin: Skin color, texture, turgor normal, no suspicious rashes or lesions Head: Normocephalic, no masses, lesions, tenderness or abnormalities BACK: Normal curvature of spine. No spine tenderness. Tender over left lower back. Straight leg test negative. Deep tendon reflexes 2+/4 at patellas. Normal lower extremity strength. ASSESSMENT/PLAN: 1. Lumbar pain - ICD9: 724.2, ICD10: M54.5 Lumbosacral sprain - Ice for localized tenderness - Medrol dose pack - Patient given instructions tens unit. Get xray. Continue chiropractic. - XR LUMBAR GENERAL 3V AP/LAT/L5-S1 - METHYLPREDNISOLONE 4 MG TABLETS IN A DOSE PACK Zeferino Leon MD Referring Provider: SELF [[id number]] Allergies As of Date: 11/26/2018 (No Known Allergies) Date Reviewed: 11/17/2018 Reviewed by: Juliana Murphy Ma - Fully Assessed Reason for Visit: Back Pain [12] Primary Visit Diagnosis:Lumbar pain [M54.5] Order(s):XR LUMBAR GENERAL 3V AP/LAT/L5-S1 [9841670] Order #: [id number] FUTURE methylPREDNISolone (MEDROL, TEMO,) 4 mg Dose-PackFollow dosing instructions, take with food.Disp: 1 PackageRfl: 0 TENS unit and electrodes cmpkUse as directedDisp: 1 DeviceRfl: 0 Prescriptions as of 11/26/2018 Sig: MELOXICAM 15 MG TABLET Take 1 tablet by mouth once d* PAROXETINE 10 MG TABLET Take 1 tablet by mouth once d* TIZANIDINE 4 MG TABLET Take 1 tablet by mouth every * LISINOPRIL 5 MG TABLET Take 1 tablet by mouth once d* HYDROXYZINE PAMOATE 25 MG CAP* Take 1 capsule by mouth three* COMPOUNDED PRESCRIPTION Urine microalbumin. hba1c DX* BLOOD [...] Take 1 tablet by mouth once d* METHYLPREDNISOLONE 4 MG TABLE* Follow dosing instructions, t* TENS UNIT AND ELECTRODES COMB* Use as directed Problem List As Of Date 11/26/2018 Noted Resolved SUPERVIS NORMAL 1ST PREG [Z34.00] [...] (obstructive sleep apnea) [G47.33] INVALID FOR* More... Microalbuminuria [R80.9] INVALID FOR* Visit Notes: >> Juliana Murphy Ma SatNov 26, 2018 11:06 AM Status: Signed BACK PAIN: Patient still has a lot of tightness and pressure. Going to chiropractor twice a week, which helps. Taking the meloxicam. Would like to get a TENS unit. Still out of work. Prescriptions ordered this encounter Disp Refills Start End METHYLPREDNISOLONE 4 MG TABLETS IN A* 1 Pa* 0 11/26/2018 12/02/2018 Sig: Follow dosing instructions, take with food. TENS UNIT AND ELECTRODES COMBO PACK 1 De* 0 11/26/2018 Sig: Use as directed Letter Text [facility] [address], [place] [address] Saleem Gray [address] [facility] [address] Clinic #: [id number] 11/26/2018 Patient is off work until seen on 12/01/18. Sincerely: Zeferino Leon MD Encounter Status:Closed by ZEFERINO LEON MD on 11/26/18 CHIROPRACTIC REPORT Observed: 11/25/2018 Status: F Source: [place] 2:51 PM [facility] REPOSITORY [facility] [address] [place] [address] OFFICE VISIT Date of Service: 11/25/18 MR#: [id number] Acct: [id number] Name: SALEEM GRAY Rep #: [id number] : 1980 Provider: Bibiana Rehman D.C. Age/Sex: 38/F Location: [facility] Status: Signed Intake Vital Signs11/25/18 Height 5 ft 7 in 11/25/18 Weight: 297 lb 11/25/18 Body Mass Index (BMI) 46.5 Intake Visit Reasons: back pain Chief Complaint: L sided low back pain Is patient in pain?: Yes Allergies No Known Allergies Allergy (Verified 09/30/18 14:54) Medications Lorazepam [Ativan] 0.5 mg PO PRN PRN 10/27/13 [History Confirmed 09/30/18] Albuterol Inhaler [Ventolin Hfa] 1 - 2 puff INHALATION Q6H PRN PRN 10/27/15 [History Confirmed 09/30/18] Tizanidine HCl [Zanaflex] 4 mg PO PRN PRN 04/29/17 [History Confirmed 09/30/18] Erenumab-Aooe [Aimovig Autoinjector (2 Pack)] 140 mg IM QMONTH 07/22/18 [History Confirmed 09/30/18] Ibuprofen 400 mg PO PRN PRN 07/22/18 [History Confirmed 09/30/18] Metformin HCl [Metformin HCl ER] 500 mg PO DAILY 07/22/18 [History Confirmed 09/30/18] Paroxetine [Paxil] 10 mg PO DAILY 07/22/18 [History Confirmed 09/30/18] Meclizine HCl 25 mg PO TID PRN #20 tab 07/23/18 [Rx Confirmed 09/30/18] PFSH Medical History gall bladder removal (Acute) Surgical History H/O: (Acute) Family History Father Diabetes Social History Smoking Status: Never smoker alcohol intake: never substance use type: does not use caffeine: Yes what type of physical activity do you participate in: walking frequency: daily seatbelt use: always do you feel safe at home: Yes HPI back pain : Chief Complaint: L sided low back pain Visit Number: 3 Details: SALEEM GRAY is a 38 year old F who presents with increased low back pain. She states her pain has slightly increased, leaving her with a tight and spastic pain on the lower L side of the low back. Bending, lifting, twisting, and prolonged standing causes increased pain. Today Saleem rates her pain a 4/10, she describes it as a deep pulling sensation that is constant, at times it can become sharp shooting. She has been off work for 1.5 weeks and has not noticed an improvement in her condition. Saleem denies any numbness, tingling, or radiculopathy. Location: L low back pain Duration: constant Aggravating or associated factors: bending, lifting, twisting Relieving factors: chiro Pain Quality: aching, dull, cramping, sharp Exam Musc General: Yes normal posture, normal gait, joint tenderness (T8,T9,L3,L4,L5, L SI) and decreased ROM Thoracic/Lumbar Spine: thoracic and lumbar spine normal to inspection, Lasegue's sign positive, pain with thoraco-lumbar ROM, paraspinal tenderness (moderate) on the left greater than right (lumbar), thoraco-lumbar ROM limited, thoraco-lumbar spasm (moderate) on the left greater than right Sacroiliac joints: on the left Office Procedures Chiropractic Treatments Procedures Manipulation: 3-4 regions (T8,L3,L5, LIL) Electrical Stimulation: 15 mins (L lumbar ) Traction, Mechanical: Yes Details: Lumbar traction 15 min Assessment AND Plan 1. Segmental and somatic dysfunction of lumbar region M99.03 Orders Orders: 2. Segmental and somatic dysfunction of pelvic region M99.05 Orders Orders: 3. Segmental and somatic dysfunction of thoracic region M99.02 Orders Orders: 4. Radiculopathy of lumbosacral region M54.17 Orders Orders: Plan Detail Additional Comments Continue care. Discussed performing HEP that PT had provided her previously. Also, encouraged engaging core while standing for long periods of time. Goals Decrease pain and inflammation Barriers Obesity Previous disc injury Follow Up 2 x week Coding Level of Care Code No Charge Diagnoses Segmental and somatic dysfunction of lumbar region M99.03 Segmental and somatic dysfunction of pelvic region M99.05 Segmental and somatic dysfunction of thoracic region M99.02 Radiculopathy of lumbosacral region M54.17 Additional Codes Procedures - Manipulation: 3-4 regions (22254) Procedures - Electrical Stimulation: 15 mins (79933) Procedures - Traction, Mechanical: Yes (92180) 11/25/18 1653 <Electronically signed by Bibiana Rehman D.C.> Date Bibiana Rehman D.C. Cosigner Signature: Date (if applicable) CC: CHIROPRACTIC REPORT Observed: 11/24/2018 Status: F Source: [place] 8:57 AM [facility] REPOSITORY [facility] [address] [place] [address] [id number] OFFICE VISIT Date of Service: 11/20/18 MR#: [id number] Acct: [id number] Name: SALEEM GRAY Rep #: [id number] : 1980 Provider: Bibiana Rehman D.C. Age/Sex: 38/F Location: [facility] Status: Signed Intake Vital Signs11/20/18 Height 5 ft 7 in 11/20/18 Weight: 279 lb 11/20/18 Body Mass Index (BMI) 43.7 Intake Visit Reasons: back pain Chief Complaint: L sided low back pain Is patient in pain?: Yes Allergies No Known Allergies Allergy (Verified 09/30/18 14:54) Medications Lorazepam [Ativan] 0.5 mg PO PRN PRN 10/27/13 [History Confirmed 09/30/18] Albuterol Inhaler [Ventolin Hfa] 1 - 2 puff INHALATION Q6H PRN PRN 10/27/15 [History Confirmed 09/30/18] Tizanidine HCl [Zanaflex] 4 mg PO PRN PRN 04/29/17 [History Confirmed 09/30/18] Erenumab-Aooe [Aimovig Autoinjector (2 Pack)] 140 mg IM QMONTH 07/22/18 [History Confirmed 09/30/18] Ibuprofen 400 mg PO PRN PRN 07/22/18 [History Confirmed 09/30/18] Metformin HCl [Metformin HCl ER] 500 mg PO DAILY 07/22/18 [History Confirmed 09/30/18] Paroxetine [Paxil] 10 mg PO DAILY 07/22/18 [History Confirmed 09/30/18] Meclizine HCl 25 mg PO TID PRN #20 tab 07/23/18 [Rx Confirmed 09/30/18] PFSH Medical History gall bladder removal (Acute) Surgical History H/O: (Acute) Family History Father Diabetes Social History Smoking Status: Never smoker alcohol intake: never substance use type: does not use caffeine: Yes what type of physical activity do you participate in: walking frequency: daily seatbelt use: always do you feel safe at home: Yes HPI back pain : Chief Complaint: L sided low back pain Visit Number: 2 Details: SALEEM GRAY is a 38 year old F who presents with increased low back pain. She states that over the past two days her pain has increased, leaving her with a tight and pulling sensation across the L side of the back. Walking, bending, and standing for a prolonged period of time causes increased pain. Today Saleem rates her pain a 5/10, she denies any numbness, tingling, or radiculopathy. Location: L low back Duration: constant Aggravating or associated factors: rotation, walking, and bending Relieving factors: chiro Pain Quality: aching, dull, cramping, sharp Exam Musc General: Yes normal posture, normal gait, joint tenderness (T8,T9,L3,L4,L5, L SI) and decreased ROM Thoracic/Lumbar Spine: thoracic and lumbar spine normal to inspection, Lasegue's sign positive, pain with thoraco-lumbar ROM, paraspinal tenderness (moderate), thoraco-lumbar ROM limited, thoraco-lumbar spasm (moderate) Sacroiliac joints: on the left Office Procedures Chiropractic Treatments Procedures Manipulation: 3-4 regions (T8,L3,L5, LIL) Electrical Stimulation: 15 mins (L lumbar ) Traction, Mechanical: Yes Details: Traction: lumbar, 15min Assessment AND Plan 1. Segmental and somatic dysfunction of lumbar region M99.03 Orders Orders: 2. Segmental and somatic dysfunction of pelvic region M99.05 Orders Orders: 3. Segmental and somatic dysfunction of thoracic region M99.02 Orders Orders: 4. Radiculopathy of lumbosacral region M54.17 Orders Orders: Plan Detail Additional Comments Continue care. Goals Decrease pain and inflammation Barriers Obesity Previous disc injury Follow Up 2 x week Coding Level of Care Code No Charge Diagnoses Segmental and somatic dysfunction of lumbar region M99.03 Segmental and somatic dysfunction of pelvic region M99.05 Segmental and somatic dysfunction of thoracic region M99.02 Radiculopathy of lumbosacral region M54.17 Additional Codes Procedures - Manipulation: 3-4 regions (06862) Procedures - Electrical Stimulation: 15 mins (13486) Procedures - Traction, Mechanical: Yes (14606) 11/24/18 0857 <Electronically signed by Bibiana Rehman D.C.> Date Bibiana Velazquezignjass Signature: Date (if applicable) CC: CHIROPRACTIC REPORT Observed: 11/18/2018 Status: F Source: [place] 11:26 AM [facility] REPOSITORY [facility] [address] [place] [id number] OFFICE VISIT Date of Service: 11/18/18 MR#: [id number] Acct: [id number] Name: SALEEM GRAY Rep #: [id number] : 1980 Provider: Bibiana Rehman D.C. Age/Sex: 38/F Location: [facility] Status: Signed Intake Vital Signs11/18/18 Height 5 ft 7 in 11/18/18 Weight: 279 lb 11/18/18 Body Mass Index (BMI) 43.7 Intake Visit Reasons: low back pain Chief Complaint: L sided low back pain Is patient in pain?: Yes Allergies No Known Allergies Allergy (Verified 09/30/18 14:54) Medications Lorazepam [Ativan] 0.5 mg PO PRN PRN 10/27/13 [History Confirmed 09/30/18] Albuterol Inhaler [Ventolin Hfa] 1 - 2 puff INHALATION Q6H PRN PRN 10/27/15 [History Confirmed 09/30/18] Tizanidine HCl [Zanaflex] 4 mg PO PRN PRN 04/29/17 [History Confirmed 09/30/18] Erenumab-Aooe [Aimovig Autoinjector (2 Pack)] 140 mg IM QMONTH 07/22/18 [History Confirmed 09/30/18] Ibuprofen 400 mg PO PRN PRN 07/22/18 [History Confirmed 09/30/18] Metformin HCl [Metformin HCl ER] 500 mg PO DAILY 07/22/18 [History Confirmed 09/30/18] Paroxetine [Paxil] 10 mg PO DAILY 07/22/18 [History Confirmed 09/30/18] Meclizine HCl 25 mg PO TID PRN #20 tab 07/23/18 [Rx Confirmed 09/30/18] PFSH Medical History gall bladder removal (Acute) Surgical History H/O: (Acute) Family History Father Diabetes Social History Smoking Status: Never smoker alcohol intake: never substance use type: does not use caffeine: Yes what type of physical activity do you participate in: walking frequency: daily seatbelt use: always do you feel safe at home: Yes HPI low back pain : Chief Complaint: L sided low back pain Visit Number: 1 Details: SALEEM GRAY is a 38 year old F who presents with L sided low back pain. She states that last week she lifted a heavy bag causing pain in the L low back. Walking, bending, and lifting causes the pain to increase, becoming a sharp throbbing pain. Today Saleem rates her pain a 3/10 and describes it as a dull ache at rest, when bending or lifting the pain does increase to a 7/10. Saleem denies any numbness, tingling, or radiculopathy. Onset: 11/11/18 Location: L low back Duration: constant Aggravating or associated factors: bending, lifting, and twistng Relieving factors: chiro and rest Pain Quality: aching, dull, cramping, sharp Exam Musc General: Yes normal posture, normal gait, joint tenderness (T8,T9,L3,L4,L5, L SI) and decreased ROM Thoracic/Lumbar Spine: thoracic and lumbar spine normal to inspection, Lasegue's sign positive on the left, pain with thoraco-lumbar ROM with forward flexion, paraspinal tenderness (moderate) on the left greater than right (lumbar), thoraco- lumbar ROM limited, thoraco-lumbar spasm (moderate) on the left greater than right (QL, piriformis) Sacroiliac joints: on the left tender to palpation Office Procedures Chiropractic Treatments Procedures Manipulation: 3-4 regions (T8, L3, L5, LIL) Electrical Stimulation: 15 mins (L lumbar ) Traction, Mechanical: Yes Details: Lumbar traction 15 min Assessment AND Plan 1. Degeneration of intervertebral disc of lumbosacral region M51.37 Orders Orders: 2. Segmental and somatic dysfunction of thoracic region M99.02 Orders Orders: 3. Segmental and somatic dysfunction of pelvic region M99.05 Orders Orders: 4. Segmental and somatic dysfunction of lumbar region M99.03 Plan Detail Other Orders Orders: Additional Comments Re-evaluated patient and recommended modified acute treatment plan at 2x/wk/1wk, 1x/wk/2wks. Goals Decrease pain and inflammation Barriers Obesity Previous disc injury Follow Up 2x/wk/1wk Coding Level of Care Code Off vis,est,level 1 Diagnoses Degeneration of intervertebral disc of lumbosacral region M51.37 Segmental and somatic dysfunction of thoracic region M99.02 Segmental and somatic dysfunction of pelvic region M99.05 Segmental and somatic dysfunction of lumbar region M99.03 Additional Codes Procedures - Manipulation: 3-4 regions (61692) Procedures - Electrical Stimulation: 15 mins (38779) Procedures - Traction, Mechanical: Yes (44072) 11/18/18 1126 <Electronically signed by Bibiana Rehman D.C.> Date Bibiana Rehman D.C. Cosigner Signature: Date (if applicable) CC: PROGRESS Observed: 11/17/2018 Status: COMPLETED Source: [place] 4:13 PM [facility] [place] REPOSITORY [facility] ID: [id number] Author: Zeferino Leon Service: (none) Author Type: Physician Type: Progress Notes Filed: 11/17/2018 4:21 PM Note Text: Patient presents with: Back Pain HPI: Patient presents today for office visit for acute visit. Nursing Notes: Juliana Murphy Ma 11/17/2018 4:13 PM Signed PAIN: Patient was at work and lifted a heavy bag. LOCATION: left lower back PAIN SCALE: 10 on a scale of 0-10 PAIN CHARACTER: sharp DURATION: (How long have you had the pain?) 3 days FREQUENCY: (How often does the pain occur?) occurs constantly AGGRAVATING FACTORS: walking, sitting, lifting and twisting ALLEVIATING FACTORS: standing and medications - Alternating between tylenol and ibuprofen lifted a linen bag. No direct trauma. Has some intermittent symptoms down the legs. Around noon said her legs were numb although she is better now. Left work at 2:30 today due to discomfort. While it may have started at work, it seemed to get worse on and off over the weekend. This is not a workmans comp claim. Did have to have injection in the past for her back. MEDICATIONS: Current Outpatient Prescriptions: PARoxetine (PAXIL) 10 mg tablet Take 1 tablet by mouth once daily. tiZANidine (ZANAFLEX) 4 mg tablet Take 1 tablet by mouth every 8 hours as needed. lisinopril (ZESTRIL, PRINIVIL) 5 mg tablet Take 1 tablet by mouth once daily. hydrOXYzine pamoate (VISTARIL) 25 mg capsule Take 1 capsule by mouth three times daily as needed for Anxiety. COMPOUNDED PRESCRIPTION Urine microalbumin. [id number]: DMIIDo in six to eight weeks blood sugar diagnostic (BLOOD GLUCOSE TEST) test [...] only. Bela: new one placed on 10/03/17 Njvxpmwv-Jj-Jqc-Fe-FA ( FORMULA) ORAL Tab Take 1 tablet [...] Relation Age of Onset - Heart Father [place] - Heart Paternal Grandmother TRIPLE BYPASS SURGERY - Cancer Maternal Grandmother LUNG CANCER - Cancer Father PANCREATIC CANCER - Diabetes Maternal Grandfather - Diabetes Father - Alcohol/Drug Mother Social History Marital status: Single Spouse name: Years of education: 12 Number of children: 1 Occupational History Occupation Employer Comment [employer] Student Social History Main Topics Smoking status: [...] other reviewed and negative other than HPI. VITALS: BP 126/64 Pulse 76 Resp 16 Wt 127.5 kg (281 lb) BMI 44.01 kg/m? Last 4 Encounter Wt Readings: Date: Wt: 11/17/2018 127.5 kg (281 lb) 09/29/2018 126.1 kg (278 lb) 08/21/2018 126.1 kg (278 lb) 07/21/2018 127 kg (280 lb) PHYSICAL EXAMINATION: General appearance: Well appearing, alert, in no acute distress, well-hydrated, well nourished. Skin: Skin color, texture, turgor normal, no suspicious rashes or lesions BACK: Normal curvature of spine. Right over right back. No spine tenderness. Straight leg test negative. Deep tendon reflexes 2+/4 at patellas. Normal lower extremity strength. ASSESSMENT/PLAN: 1. Lumbar sprain, initial encounter - ICD9: 847.2, ICD10: S33.5XXA Mechanical low back pain - Ice for localized tenderness - NSAIDS- see orders - Patient given instructions use muscle relaxers prn. Off works slip. - Red flags for re-assessment reviewed with patient in detail. - MELOXICAM 15 MG TABLET Zeferino Leon MD CNOV Observed: 11/17/2018 Status: COMPLETED Source: [place] 3:00 PM [facility] REPOSITORY [facility] SALEEM GRAY ([id number]) 1980 F Date Time Provider Department 11/17/18 3:00 PM [facility] During your visit today, we recorded the following information about you: Pulse Respiration Blood pressure Weight 76/minute 16/minute 126/64 127.5 kg Juliana Murphy Ma 11/17/2018 4:13 PM Signed PAIN: Patient was at work and lifted a heavy bag. LOCATION: left lower back PAIN SCALE: 10 on a scale of 0-10 PAIN CHARACTER: sharp DURATION: (How long have you had the pain?) 3 days FREQUENCY: (How often does the pain occur?) occurs constantly AGGRAVATING FACTORS: walking, sitting, lifting and twisting ALLEVIATING FACTORS: standing and medications - Alternating between tylenol and ibuprofen Zeferino Leon MD 11/17/2018 4:21 PM Signed Patient presents with: Back Pain HPI: Patient presents today for office visit for acute visit. Nursing Notes: Juliana Murphy Ma 11/17/2018 4:13 PM Signed PAIN: Patient was at work and lifted a heavy bag. LOCATION: left lower back PAIN SCALE: 10 on a scale of 0-10 PAIN CHARACTER: sharp DURATION: (How long have you had the pain?) 3 days FREQUENCY: (How often does the pain occur?) occurs constantly AGGRAVATING FACTORS: walking, sitting, lifting and twisting ALLEVIATING FACTORS: standing and medications - Alternating between tylenol and ibuprofen lifted a linen bag. No direct trauma. Has some intermittent symptoms down the legs. Around noon said her legs were numb although she is better now. Left work at 2:30 today due to discomfort. While it may have started at work, it seemed to get worse on and off over the weekend. This is not a workmans comp claim. Did have to have injection in the past for her back. MEDICATIONS: Current Outpatient Prescriptions: PARoxetine (PAXIL) 10 mg tablet Take 1 tablet by mouth once daily. tiZANidine (ZANAFLEX) 4 mg tablet Take 1 tablet by mouth every 8 hours as needed. lisinopril (ZESTRIL, PRINIVIL) 5 mg tablet Take 1 tablet by mouth once daily. hydrOXYzine pamoate (VISTARIL) 25 mg capsule Take 1 capsule by mouth three times daily as needed for Anxiety. COMPOUNDED PRESCRIPTION Urine microalbumin. [id number]: DMIIDo in six to eight weeks blood sugar diagnostic (BLOOD GLUCOSE TEST) test [...] only. Bela: new one placed on 10/03/17 Orsgmyvl-Sw-Txk-Fe-FA ( FORMULA) ORAL Tab Take 1 tablet [...] Relation Age of Onset - Heart Father [place] - Heart Paternal Grandmother TRIPLE BYPASS SURGERY - Cancer Maternal Grandmother LUNG CANCER - Cancer Father PANCREATIC CANCER - Diabetes Maternal Grandfather - Diabetes Father - Alcohol/Drug Mother Social History Marital status: Single Spouse name: Years of education: 12 Number of children: 1 Occupational History Occupation Employer Comment [employer] Student Social History Main Topics Smoking status: [...] other reviewed and negative other than HPI. VITALS: BP 126/64 Pulse 76 Resp 16 Wt 127.5 kg (281 lb) BMI 44.01 kg/m? Last 4 Encounter Wt Readings: Date: Wt: 11/17/2018 127.5 kg (281 lb) 09/29/2018 126.1 kg (278 lb) 08/21/2018 126.1 kg (278 lb) 07/21/2018 127 kg (280 lb) PHYSICAL EXAMINATION: General appearance: Well appearing, alert, in no acute distress, well-hydrated, well nourished. Skin: Skin color, texture, turgor normal, no suspicious rashes or lesions BACK: Normal curvature of spine. Right over right back. No spine tenderness. Straight leg test negative. Deep tendon reflexes 2+/4 at patellas. Normal lower extremity strength. ASSESSMENT/PLAN: 1. Lumbar sprain, initial encounter - ICD9: 847.2, ICD10: S33.5XXA Mechanical low back pain - Ice for localized tenderness - NSAIDS- see orders - Patient given instructions use muscle relaxers prn. Off works slip. - Red flags for re-assessment reviewed with patient in detail. - MELOXICAM 15 MG TABLET Zeferino Leon MD Referring Provider: ZEFERINO LEON [[id number]] Allergies As of Date: 11/17/2018 (No Known Allergies) Date Reviewed: 11/17/2018 Reviewed by: Juliana Murphy Ma - Fully Assessed Reason for Visit: Back Pain [12] Primary Visit Diagnosis:Lumbar sprain, initial encounter [S33.5XXA] Order(s):meloxicam (MOBIC) 15 mg tabletTake 1 tablet by mouth once daily. With food.Disp: 20 tabletRfl: 0 Prescriptions as of 11/17/2018 Sig: PAROXETINE 10 MG TABLET Take 1 tablet by mouth once d* TIZANIDINE 4 MG TABLET Take 1 tablet by mouth every * LISINOPRIL 5 MG TABLET Take 1 tablet by mouth once d* HYDROXYZINE PAMOATE 25 MG CAP* Take 1 capsule by mouth three* COMPOUNDED PRESCRIPTION Urine microalbumin. hba1c DX* BLOOD [...] once d* Problem List As Of Date 11/17/2018 Noted Resolved SUPERVIS NORMAL 1ST PREG [Z34.00] [...] (obstructive sleep apnea) [G47.33] INVALID FOR* More... Microalbuminuria [R80.9] INVALID FOR* Visit Notes: >> Juliana Murphy Ma Mon Nov 17, 2018 3:52 PM Status: Signed PAIN: Patient was at work and lifted a heavy bag. LOCATION: left lower back PAIN SCALE: 10 on a scale of 0-10 PAIN CHARACTER: sharp DURATION: (How long have you had the pain?) 3 days FREQUENCY: (How often does the pain occur?) occurs constantly AGGRAVATING FACTORS: walking, sitting, lifting and twisting ALLEVIATING FACTORS: standing and medications - Alternating between tylenol and ibuprofen Prescriptions ordered this encounter Disp Refills Start End MELOXICAM 15 MG TABLET 20 t* 0 11/17/2018 Route: ORAL Sig: Take 1 tablet by mouth once daily. With food. Letter Text [facility] [address] [place] [phone] Saleem Gray [address] [place] [address] Clinic #: [id number] 11/17/2018 Off work 11/19-11/21/18 due to illness. Sincerely: Zeferino Leon MD Encounter Status:Closed by ZEFERINO LEON MD on 11/17/18 EMERGENCY DEPARTMENT Observed: 09/30/2018 Status: F Source: [place] SUMMARY 3:59 PM [facility] REPOSITORY [facility] Medical Records Department [address] [place], [place] [id number] Emergency Department Summary 09/30/18 1514 MR#: [id number] Acct: [id number] Name: SALEEM GRAY Ivan Rep #: [id number] : 1980 38 From: Everette Melo DO [...] knee contusion This note was generated with [employer] dictation software. It may contain incorrect words, [...] your Primary Care Provider. Call [facility] ([phone]) or report to the closest Emergency Room. Call 911 if necessary. 09/30/18 1557 <Electronically signed by Everette Melo DO> Date Everette Melo DO Cosigner Signature (If Indicated): Date CC: Zeferino Leon MD FOREARM 2 VIEWS Observed: 09/30/2018 Status: F Source: [place] 3:13 PM [facility] REPOSITORY [facility] Imaging Services [address] [place] [address] Forearm 2 Views MR#: [id number] Acct: [id number] Name: SALEEM GRAY Rep #: [id number] : 1980 F 38 From: Emiliano Gonzalez MD PCP: Zeferino Leon MD Status: DEP ER Study: Forearm 2 Views Date of Exam: 09/30/18 Exam# [id number] Ordering Dr: Everette Melo DO STUDY: X-RAY [...] Emiliano Gonzalez MD at 15:52 EST Tel [phone], Service support , CC: Everette Melo DO; Zeferino Leon MD Financial Administration Officer: Signed MICROALB:CREAT Collected: 09/30/2018 Status: F Source: [place] RATIO,RANDOM UR 9:07 AM [facility] REPOSITORY TYPE CODE TESTS RESULT OUT OF RANGE REFERENCE UNITS LAB L501.1200 NO RANGE EST. mg/dL Normal UR CREAT 123.00 LAB L502.0500 NO RANGE EST. mg/L Normal 730.0 MICROALBUMIN ,UR LAB L502.0600 <30 mg/g CRE mg/g CRE High 593.5 MALB:CREAT Performed By: #### L502.0250 #### [facility] [address] [place], [address] HEMOGLOBIN A1C Collected: 09/30/2018 Status: F Source: [place] 9:07 AM [facility] REPOSITORY TYPE CODE TESTS RESULT OUT OF RANGE REFERENCE UNITS LAB L501.9985 4.2-6.3 % Normal HGB A1C 6.2 Performed By: #### L501.9985 #### [facility] [address] [place], [address] PROGRESS Observed: 09/29/2018 Status: COMPLETED Source: [place] 4:18 PM [facility] REPOSITORY HNO ID: [id number] Author: Krystle Carroll (Jonny) Mitchell Service: (none) Author Type: Physician Principal Scientist Type: Progress Notes Filed: 09/29/2018 10:11 PM Note Text: 38 year old female with c/o 1. 4 month anniversary of father's . Feeling sad. Feels crazy difficulty sleeping, tearful, irizarry. Ativan helps; uses minimally. Paxil helps significantly. 2. Went to [facility] ED and was admitted overnight with [...] Relation Age of Onset - Heart Father [place] - Heart Paternal Grandmother TRIPLE BYPASS SURGERY [...] children: 1 Occupational History Occupation Employer Comment [employer] and [employer]* [employer] Student Social History Main Topics Smoking status: [...] one placed on 10/03/17 Disp: Rfl: 0 Noxjmhtm-Vy-Lix-Fe-FA ( FORMULA) ORAL Tab Take 1 tablet by mouth once daily. Disp: Rfl: 0 COMPOUNDED PRESCRIPTION Urine microalbumin. [id number]: DMIIDo in six to eight weeks Disp: [...] JONNY Contreras Observed: 09/29/2018 Status: COMPLETED Source: [place] 3:00 PM [facility] REPOSITORY Office Visit (FAMPWS) SALEEM GRAY ([id number]) 1980 F Date Time Provider Department 09/29/18 3:00 PM Krystle MEDRANO) FAMPWS During your visit today, we recorded the following information about you: Temperature Pulse Respiration Blood pressure 98.4 degrees 76/minute 16/minute 120/84 Weight 126.1 kg Krystle Medrano PA-C 09/29/2018 10:11 PM Signed 38 year old female with c/o 1. 4 month anniversary of father's . Feeling sad. Feels crazy difficulty sleeping, tearful, irizarry. Ativan helps; uses minimally. Paxil helps significantly. 2. Went to [facility] ED and was admitted overnight with [...] Relation Age of Onset - Heart Father [place] - Heart Paternal Grandmother TRIPLE BYPASS SURGERY [...] children: 1 Occupational History Occupation Employer Comment [employer]* [employer] Student Social History Main Topics Smoking status: [...] Breath. Disp: 1 Inhaler Rfl: 5 levonorgestrel (BEAL) 14 mcg/24 hour (3 years) IUD IUD 1 Each by INTRAUTERINE route one time only. Bela: new one placed on 10/03/17 Disp: Rfl: 0 Prgxxdek-Cm-Auc-Fe-FA ( FORMULA) ORAL Tab Take 1 tablet by mouth once daily. Disp: Rfl: 0 COMPOUNDED PRESCRIPTION Urine microalbumin. [id number]: DMIIDo in six to eight weeks Disp: [...] 09/29/18 PROGRESS Observed: 08/21/2018 Status: COMPLETED Source: [place] 2:59 PM [facility] REPOSITORY O ID: [id number] Author: Zeferino Leon Service: (none) Author Type: Physician Type: Progress Notes Filed: 08/21/2018 3:18 PM Note Text: Patient presents with: Diabetes: follow up HPI: Patient presents today for office visit for follow up. Nursing Notes: Juliana Murphy Ma 08/21/2018 2:54 PM Signed DM: Reports overall feeling well. Medication side effects: No. Home sugar checks: 78-191 since checking, usually 100-120, checking 1-2 times a day Hypoglycemic spells: No. Watching diet: Scheduled to see insurance healthcare consultant in a couple weeks . Unexpected weight loss: No. Polyuria, polydipsia: No. Vision Changes: No, getting better since controlling sugars Foot lesions or numbness or pain: Left foot numb and tingling She met with diabetic nurse at [facility]. Having her keep a food log [...] only. Bela: new one placed on 10/03/17 Ftktpqyh-Nv-Htc-Fe-FA ( FORMULA) ORAL Tab Take 1 tablet [...] Relation Age of Onset - Heart Father [place] - Heart Paternal Grandmother TRIPLE BYPASS SURGERY - Cancer Maternal Grandmother LUNG CANCER - Cancer Father PANCREATIC CANCER - Diabetes Maternal Grandfather - Diabetes Father - Alcohol/Drug Mother Social History Marital status: Single Spouse name: Years of education: 12 Number of children: 1 Occupational History Occupation Employer Comment [employer] and [employer]* [employer] Student Social History Main Topics Smoking status: [...] MD CNOV Observed: 08/21/2018 Status: COMPLETED Source: [place] 2:40 PM [facility] REPOSITORY [facility] ([id number]) 1980 F Date Time Provider Department 08/21/18 2:40 PM ZEFERINO LEON FAMPWS During your visit today, we recorded the following information about you: Pulse Respiration Blood pressure Weight 72/minute 16/minute 138/86 126.1 kg Juliana Murphy Ma 08/21/2018 2:54 PM Signed DM: Reports overall feeling well. Medication side effects: No. Home sugar checks: 78-191 since checking, usually 100-120, checking 1-2 times a day Hypoglycemic spells: No. Watching diet: Scheduled to see insurance healthcare consultant in a couple weeks . Unexpected weight loss: No. Polyuria, polydipsia: No. Vision Changes: No, getting better since controlling sugars Foot lesions or numbness or pain: Left foot numb and tingling She met with diabetic nurse at [facility]. Having her keep a food log and check her sugars at different times of the day. Zeferino Leon MD 08/21/2018 3:18 PM Signed Patient presents with: Diabetes: follow up HPI: Patient presents today for office visit for follow up. Nursing Notes: Juliana Jeffrey Ramirez 08/21/2018 2:54 PM Signed DM: Reports overall feeling well. Medication side effects: No. Home sugar checks: 78-191 since checking, usually 100-120, checking 1-2 times a day Hypoglycemic spells: No. Watching diet: Scheduled to see insurance healthcare consultant in a couple weeks . Unexpected weight loss: No. Polyuria, polydipsia: No. Vision Changes: No, getting better since controlling sugars Foot lesions or numbness or pain: Left foot numb and tingling She met with diabetic nurse at [facility]. Having her keep a food log [...] only. Bela: new one placed on 10/03/17 Krwazhlh-Bc-Ruf-Fe-FA ( FORMULA) ORAL Tab Take 1 tablet [...] Relation Age of Onset - Heart Father [place] - Heart Paternal Grandmother TRIPLE BYPASS SURGERY - Cancer Maternal Grandmother LUNG CANCER - Cancer Father PANCREATIC CANCER - Diabetes Maternal Grandfather - Diabetes Father - Alcohol/Drug Mother Social History Marital status: Single Spouse name: Years of education: 12 Number of children: 1 Occupational History Occupation Employer Comment [employer] and [employer]* [employer] Student Social History Main Topics Smoking status: [...] Zeferino Leon MD Referring Provider: ZEFERINO LEON [[id number]] Allergies As of Date: 08/21/2018 (No Known Allergies) Date Reviewed: 05/01/2018 Reviewed by: Jovana [place] Interpretive Ranger - Fully Assessed Reason for Visit: Diabetes [...] INVALID FOR* More... Visit Notes: >> Juliana Murphy James Michelle Aug 21, 2018 2:46 PM Status: Signed DM: Reports overall feeling well. Medication side effects: No. Home sugar checks: 78-191 since checking, usually 100-120, checking 1-2 times a day Hypoglycemic spells: No. Watching diet: Scheduled to see insurance healthcare consultant in a couple weeks . Unexpected weight loss: No. Polyuria, polydipsia: No. Vision Changes: No, getting better since controlling sugars Foot lesions or numbness or pain: Left foot numb and tingling She met with diabetic nurse at [facility]. Having her keep a food log [...] 07/24/2018 Status: F Source: [place] 1:43 PM [facility] REPOSITORY [facility] Cardiovascular Services [address] [place] [address] 12 Lead EKG 07/22/18 1414 MR#: [id number] Acct: [id number] Name: SALEEM GRAY Rep #: [id number] : 1980 38 From: Vin Montes MD Attending Dr: Woody Rebolledo DO Status: DIS CHASITY Ordering Dr: Mildred Sotomayor DO Date: 07/22/18 Location: [facility] Sex: F C Admitted: 07/22/18 Test Reason [...] T wave abnormality Abnormal ECG Confirmed by ANASTASIYA SHEARER, VIN ([id number]), make up editor GRAZYNA BLOOD ([id number]) on 07/24/2018 1:43:29 PM Referred By: Zeferino Leon Confirmed By:VIN MONTES MD 07/24/18 1343 Date Vin Montes MD CC: Woody Rebolledo DO; Mildred Sotomayor DO; Zeferino Leon MD Signed HEMOGLOBIN A1C Collected: 07/24/2018 Status: F Source: [place] 12:27 PM [facility] REPOSITORY TYPE CODE TESTS RESULT OUT OF RANGE REFERENCE UNITS LAB L501.9985 4.2-6.3 % High HGB A1C 7.2 Performed By: #### L501.9985 #### [facility] [address] [facility] [place], [place], [address] LIVER PROFILE Collected: 07/24/2018 Status: F Source: [place] 12:27 PM [facility] REPOSITORY Order Comment: ADD ONTO DRAW FROM [...] 0.13 Performed By: #### L500.3400, L501.9520 #### [facility] [address] [facility] [place], [place], [address] THYROID STIM HORMONE Collected: 07/24/2018 Status: F Source: [place] (TSH) 12:27 PM [facility] REPOSITORY Order Comment: ADD ONTO DRAW FROM YESTERDAY. TYPE CODE TESTS RESULT OUT OF RANGE REFERENCE UNITS LAB L501.9520 0.358-3.74 uIU/mL Normal TSH 1.82 Performed By: #### L500.3400, L501.9520 #### [facility] [address] [facility] [place], [address] MICROALB:CREAT Collected: 07/24/2018 Status: F Source: [place] RATIO,RANDOM UR 12:27 PM [facility] REPOSITORY TYPE CODE TESTS RESULT OUT OF RANGE REFERENCE UNITS LAB L501.1200 NO RANGE EST. mg/dL Normal UR CREAT 65.30 LAB L502.0500 NO RANGE EST. mg/L Normal 190.0 MICROALBUMIN ,UR LAB L502.0600 <30 mg/g CRE mg/g CRE High 291.0 MALB:CREAT Performed By: #### L502.0250 #### [facility] [address] [place], [address] CBC W/DIFF, AUTOMATED Collected: 07/24/2018 Status: F Source: [place] 12:27 PM [facility] REPOSITORY TYPE CODE TESTS RESULT OUT OF [...] Lymph 2.27 Performed By: #### L100.0100 #### [facility] [address] [place], [address] HEPATITIS PANEL ACUTE Collected: 07/24/2018 Status: F Source: [place] 12:27 PM [facility] REPOSITORY TYPE CODE TESTS RESULT OUT OF RANGE REFERENCE UNITS LAB L3100.0200 Negative Normal HEP A Negative IgM 6734 LAB L3100.0400 Negative Normal HB Negative SURF AG LAB L3100.0440 Negative Normal HB Negative CORE [id number] LAB L3100.0650 0.0-0.9 s/co ratio Normal HEP C <0.1 AB Result Comment: Negative: < 0.8 Indeterminate: 0.8 - 0.9 Positive: > 0.9 The CDC recommends that a positive HCV antibody result be followed up with a HCV Nucleic Acid Amplification test (954383). Performed at: [facility] [id number] Exhibit Carpenter: José Antonio Aldana PhD, Phone: [phone] Performed By: #### L3000.0375 #### [facility] (refer to report for specific site) refer to report for address and phone number BEDSIDE GLUCOSE Collected: 07/23/2018 Status: F Source: [place] 4:13 PM [facility] REPOSITORY TYPE CODE TESTS RESULT OUT OF RANGE REFERENCE UNITS LAB L501.080 70-110 mg/dL Normal BEDSIDE GLU 106 Result Comment: MANAGEMENT OF PATIENT CARE PER NURSING PROTOCOL Performed By: #### L501.080 #### [facility] Point of Care [address] [place] [address] DISCHARGE SUMMARY Observed: 07/23/2018 Status: F Source: [place] 3:47 PM [facility] Medical Records Department [address] [place] [address] Discharge Summary 07/23/18 1545 MR#: [id number] Acct: [id number] Name: SALEEM GRAY Rep #: [id number] : 1980 38 From: Woody Rebolledo DO PCP: Zeferino Leon MD Status: ADM CHASITY Y Location: [place] [address] Discharge Date and Diagnosis - Problem List [...] applicable Code Visit OBSV E AND M: 98340 Observation care discharge 07/23/18 1547 <Electronically signed by Woody Rebolledo DO> Date Woody Rebolledo DO Cosigner Signature (if applicable): Date CC: Woody Rebolledo DO; Zeferino Leon MD Signed DISCHARGE INSTRUCTION Observed: 07/23/2018 Status: F Source: [place] 3:45 PM [facility] REPOSITORY [facility] Medical Records Department [address] [place] [address] Instructions for Home/Discharge Instructions 07/23/18 1543 MR#: [id number] Acct: [id number] Name: SALEEM GRAY Rep #: [id number] : 1980 38 From: Woody Rebolledo DO [...] 07/23/18 07/23/18 1545 <Electronically signed by Woody Jopperi DO> Date Woody Rebolledo DO CC: Zeferino Leon MD ECHO, COMPLETE W/ Observed: 07/23/2018 Status: F Source: [place] CONTRAST 1:46 PM [facility] REPOSITORY [facility] Cardiovascular Services [address] [place] [address] Echo Complete W/ Contrast 07/23/18 0911 MR#: [id number] Acct: [id number] Name: SALEEM GRAY Rep #: [id number] : 1980 38 From: Everette Villalpando MD Attending Dr: Woody Rebolledo DO Status: ADM CHASITY Ordering Dr: Yayo Mohamud MD Date: 07/22/18 Location: [facility] Sex: F C Admitted: 07/22/18 Reason For [...] Everette Villalpando MD CC: Woody Rebolledo DO; Yaoy Mohamud MD; Zeferino Leon MD Date Dictated: 07/23/18910 Date Transcribed: 07/23/181345 Financial Administration Officer: Signed BEDSIDE GLUCOSE Collected: 07/23/2018 Status: F Source: [place] 10:56 AM [facility] REPOSITORY TYPE CODE TESTS RESULT OUT OF REFERENCE UNITS RANGE LAB L501.080 70-110 mg/dL High BEDSIDE GLU 152 Result Comment: Dr Orders Followed Insulin Given MANAGEMENT OF PATIENT CARE PER NURSING PROTOCOL Performed By: #### L501.080 #### [facility] Point of Care [address] [place], [place] [address] BEDSIDE GLUCOSE Collected: 07/23/2018 Status: F Source: [place] 7:00 AM [facility] REPOSITORY TYPE CODE TESTS RESULT OUT OF REFERENCE UNITS RANGE LAB L501.080 70-110 mg/dL High BEDSIDE GLU 127 Result Comment: MANAGEMENT OF PATIENT CARE PER NURSING PROTOCOL Performed By: #### L501.080 #### [facility] Point of Care [address] [place], [place] [address] BASIC METABOLIC Collected: 07/23/2018 Status: F Source: [place] PROFILE (BMP) 5:54 AM [facility] REPOSITORY TYPE CODE TESTS RESULT OUT OF [...] Normal 10 Performed By: #### L500.2500 #### [facility] [address] [facility] [place], [place], [address] HEMOGLOBIN A1C Collected: 07/23/2018 Status: F Source: [place] 5:54 AM [facility] REPOSITORY TYPE CODE TESTS RESULT OUT OF RANGE REFERENCE UNITS LAB L501.9985 4.2-6.3 % High HGB A1C 7.1 Performed By: #### L501.9985 #### [facility] [address] [facility] [place], [address] TROPONIN-I Collected: 07/22/2018 Status: F Source: [place] 11:17 PM [facility] REPOSITORY Order Comment: 'TROP' Serial specimen #1, #2 or #3: 3 TYPE CODE TESTS RESULT OUT OF RANGE REFERENCE UNITS LAB L501.4010 <0.045 ng/mL Normal < 0.015 TROPONIN-I Result Comment: TROPONIN-I EXPECTED VALUES <0.045 Negative 0.045 - 0.590 Consistent with Cardiac Damage > OR = 0.600 Critical Value Not every elevated troponin is indicative of [place]. These values should be used with clinical judgement in examining the patient's clinical picture for diagnosis. To establish a diagnosis of [place] versus myocardial injury, there must be a demonstrated rise and/or fall in the troponin values, in addition to ischemic symptoms, EKG changes, new regional wall motion abnormality, and/or angiographical evidence. PLEASE NOTE: REFERENCE RANGES EDITED 18 Performed By: #### L501.4010 #### [facility] [address] [place], [address] BEDSIDE GLUCOSE Collected: 07/22/2018 Status: F Source: [place] 10:50 PM [facility] REPOSITORY TYPE CODE TESTS RESULT OUT OF REFERENCE UNITS RANGE LAB L501.080 70-110 mg/dL High BEDSIDE GLU 157 Result Comment: MANAGEMENT OF PATIENT CARE PER NURSING PROTOCOL Performed By: #### L501.080 #### [facility] Point of Care [address] [place], [place] [address] TROPONIN-I Collected: 07/22/2018 Status: F Source: [place] 8:18 PM [facility] REPOSITORY Order Comment: 'TROP' Serial specimen #1, #2 or #3: 2 TYPE CODE TESTS RESULT OUT OF RANGE REFERENCE UNITS LAB L501.4010 <0.045 ng/mL Normal < 0.015 TROPONIN-I Result Comment: TROPONIN-I EXPECTED VALUES <0.045 Negative 0.045 - 0.590 Consistent with Cardiac Damage > OR = 0.600 Critical Value Not every elevated troponin is indicative of [place]. These values should be used with clinical judgement in examining the patient's clinical picture for diagnosis. To establish a diagnosis of [place] versus myocardial injury, there must be a demonstrated rise and/or fall in the troponin values, in addition to ischemic symptoms, EKG changes, new regional wall motion abnormality, and/or angiographical evidence. PLEASE NOTE: REFERENCE RANGES EDITED 18 Performed By: #### L501.4010 #### [facility] [address] [place], [place], [address] BEDSIDE GLUCOSE Collected: 07/22/2018 Status: F Source: [place] 6:53 PM [facility] REPOSITORY TYPE CODE TESTS RESULT OUT OF RANGE REFERENCE UNITS LAB L501.080 70-110 mg/dL Normal BEDSIDE GLU 106 Result Comment: MANAGEMENT OF PATIENT CARE PER NURSING PROTOCOL Performed By: #### L501.080 #### [facility] Point of Care [address] [place] [address] TROPONIN-I Collected: 07/22/2018 Status: F Source: [place] 5:56 PM [facility] REPOSITORY Order Comment: 'TROP' Serial specimen #1, #2 or #3: 1 TYPE CODE TESTS RESULT OUT OF RANGE REFERENCE UNITS LAB L501.4010 <0.045 ng/mL Normal < 0.015 TROPONIN-I Result Comment: TROPONIN-I EXPECTED VALUES <0.045 Negative 0.045 - 0.590 Consistent with Cardiac Damage > OR = 0.600 Critical Value Not every elevated troponin is indicative of [place]. These values should be used with clinical judgement in examining the patient's clinical picture for diagnosis. To establish a diagnosis of [place] versus myocardial injury, there must be a demonstrated rise and/or fall in the troponin values, in addition to ischemic symptoms, EKG changes, new regional wall motion abnormality, and/or angiographical evidence. PLEASE NOTE: REFERENCE RANGES EDITED 18 Performed By: #### L501.4010, L501.5200 #### [facility] [address] [place], [address] MAGNESIUM Collected: 07/22/2018 Status: F Source: [place] 5:56 PM [facility] REPOSITORY Order Comment: 'TROP' Serial specimen #1, #2 or #3: 1 TYPE CODE TESTS RESULT OUT OF RANGE REFERENCE UNITS LAB L501.5200 1.6-2.6 mg/dL Low MG 1.5 Performed By: #### L501.4010, L501.5200 #### [facility] [address] [place], [address] HISTORY AND PHYSICAL Observed: 07/22/2018 Status: F Source: [place] EXAM 5:33 PM [facility] REPOSITORY [facility] Medical Records Department [address] [place] [address] History and Physical 07/22/18 1716 MR#: [id number] Acct: [id number] Name: SALEEM GRAY Rep #: [id number] : 1980 38 From: Yayo Mohamud MD PCP: Zeferino Leon MD Status: ADM CHASITY Y Location: [place] [address] Problem List (1) Near syncope Status: Acute [...] in menstrual period. Her father had early [place] and he of coronary artery disease [] [...] in menstrual period. Her father had early [place] and he of coronary artery disease 1. [...] milligrams daily. This note was generated with Bacc[employer] software. Every effort was made to ensure accuracy, however computerized tangled yarn spool straightener mistakes may persist. Code Visit OBSV E AND M: 29513 Initial observation care L3 07/22/18 1733 <Electronically signed by Yayo Mohamud MD> Date Yayo Mohamud MD Cosigner Signature: Date (if applicable) CC: Yayo Mohamud MD; Zeferino Leon MD Signed BRAIN WITHOUT Observed: 07/22/2018 Status: F Source: [place] CONTRAST 5:26 PM [facility] REPOSITORY [facility] Imaging Services [address] [place] [address] Brain without Contrast MR#: [id number] Acct: [id number] Name: GRAYALEAJUDAH Love Rep #: [id number] : 1980 F 38 From: Noe Michael MD PCP: Zeferino Leon MD Status: ADM CHASITY Study: Brain without Contrast Date of Exam: 07/22/18 Exam# [id number] Ordering Dr: Yayo Mohamud MD STUDY: MRI [...] CC: Yayo Mohamud MD; Zeferino Leon MD Financial Administration Officer: Signed ABDOMEN SINGLE VIEW Observed: 07/22/2018 Status: F Source: [place] 5:26 PM [facility] REPOSITORY [facility] Imaging Services [address] [place] [address] Abdomen Single View MR#: [id number] Acct: [id number] Name: SALEEM GRAY Rep #: [id number] : 1980 F 38 From: Raghav Shea MD PCP: Zeferino Leon MD Status: ADM CHASITY Study: Abdomen Single View Date of Exam: 07/22/18 Exam# [id number] Ordering Dr: Yayo Mohamud MD STUDY: X-RAY [...] CC: Yayo Mohamud MD; Zeferino Leon MD Financial Administration Officer: Signed EMERGENCY DEPARTMENT Observed: 07/22/2018 Status: F Source: [place] SUMMARY 4:41 PM [facility] REPOSITORY [facility] Medical Records Department [address] [place] [address] Emergency Department Summary 07/22/18 1635 MR#: [id number] Acct: [id number] Name: SALEEM GRAY Rep #: [id number] : 1980 38 From: Mildred Sotomayor DO [...] rebound or rigidity, no peritoneal signs. Neuro czbh-nfcukg-hnpa and heel stokes testing within normal limits, [...] [Dizziness-etiology uncertain] This note was generated with [employer] dictation software. It may contain incorrect words, [...] your Primary Care Provider. Call [facility] ([phone]) or report to the closest Emergency Room. Call 911 if necessary. 07/22/18 1641 <Electronically signed by Mildred Sotomayor DO> Date Milrded Sotomayor DO Cosigner Signature (If Indicated): Date CC: Zeferino Leon MD BRAIN/HEAD WITHOUT Observed: 07/22/2018 Status: F Source: [place] CONTRAST 4:01 PM [facility] REPOSITORY [facility] Imaging Services [address] [place] [address] Brain/Head without Contrast MR#: [id number] Acct: [id number] Name: SALEEM GRAY Rep #: [id number] : 1980 F 38 From: Raghav Shea MD PCP: Zeferino Leon MD Status: REG ER Study: Brain/Head without Contrast Date of Exam: 07/22/18 Exam# [id number] Ordering Dr: Mildred Sotomayor DO STUDY: CT [...] CC: Mildred Sotomayor DO; Zeferino Leon MD Financial Administration Officer: Signed URINALYSIS, COMPLETE Collected: 07/22/2018 Status: F Source: [place] 3:30 PM [facility] REPOSITORY Order Comment: Order Date: 07/22/18 How [...] URINE SEEN Performed By: #### L400.0001 #### [facility] [address] [place], [place], [address] CBC W/DIFF, AUTOMATED Collected: 07/22/2018 Status: F Source: [place] 2:15 PM [facility] REPOSITORY TYPE CODE TESTS RESULT OUT OF [...] Lymph 2.50 Performed By: #### L100.0100 #### [facility] [address] [facility]. [place], [place], [address] D-DIMER QUANTITATIVE Collected: 07/22/2018 Status: F Source: [place] (DVT/PE) 2:15 PM [facility] REPOSITORY TYPE CODE TESTS RESULT OUT OF RANGE REFERENCE UNITS LAB L300.8000 0.27-0.49 FEU/ug/m Low D-DIMER < 0.27 QUANT Result Comment: NORMAL D-Dimer level (<0.50) indicates no DVT or PE. Performed By: #### L300.8000 #### [facility] [address] [facility]. [place], [place], [address] COMPREHENSIVE METABOLIC Collected: 07/22/2018 Status: F Source: [place] PROFIL 2:15 PM [facility] REPOSITORY TYPE CODE TESTS RESULT OUT OF [...] 11 Performed By: #### L500.4050, L501.2450 #### [facility] [address] [place], [place], [address] LIPASE Collected: 07/22/2018 Status: F Source: [place] 2:15 PM [facility] REPOSITORY TYPE CODE TESTS RESULT OUT OF RANGE REFERENCE UNITS LAB L501.2450 73-393 U/L Normal LIPASE 204 Performed By: #### L500.4050, L501.2450 #### [facility] [address] [place], [place], [id number] ,SERUM,HCG QUALI. Collected: Status: F Source: [place] 07/22/2018 2:15 PM [facility] REPOSITORY TYPE CODE TESTS RESULT OUT OF REFERENCE UNITS RANGE LAB L700.6700 =>Qualitative mIU/mL Normal HCG Qual < 1 triggr LAB L700.7000 0-9 Nonpreg Negative Normal HCGSQUAL NEGATIVE Performed By: #### L700.6800 #### [facility] [address] [place], [address] BEDSIDE GLUCOSE Collected: 07/22/2018 Status: F Source: [place] 1:51 PM [facility] REPOSITORY TYPE CODE TESTS RESULT OUT OF RANGE REFERENCE UNITS LAB L501.080 70-110 mg/dL Normal BEDSIDE GLU 98 Result Comment: MANAGEMENT OF PATIENT CARE PER NURSING PROTOCOL Performed By: #### L501.080 #### [facility] Point of Care [address] 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 Will give the ok. MEDICATIONS: [...] only. Bela: new one placed on 10/03/17 Thepixfk-Mv-Vyf-Fe-FA ( FORMULA) ORAL Tab Take 1 tablet [...] Relation Age of Onset - Heart Father [place] - Heart Paternal Grandmother TRIPLE BYPASS SURGERY - Cancer Maternal Grandmother LUNG CANCER - Cancer Father PANCREATIC CANCER - Diabetes Maternal Grandfather - Diabetes Father - Alcohol/Drug Mother Social History Marital status: Single Spouse name: Years of education: 12 Number of children: 1 Occupational History Occupation Employer Comment [employer] Student Social History Main Topics Smoking status: [...] Call sugars in one week. - see insurance healthcare consultant. 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 Will give the ok. MEDICATIONS: [...] only. Bela: new one placed on 10/03/17 Uoovtnkb-Xp-Vbf-Fe-FA ( FORMULA) ORAL Tab Take 1 tablet [...] Relation Age of Onset - Heart Father [place] - Heart Paternal Grandmother TRIPLE BYPASS SURGERY - Cancer Maternal Grandmother LUNG CANCER - Cancer Father PANCREATIC CANCER - Diabetes Maternal Grandfather - Diabetes Father - Alcohol/Drug Mother Social History Marital status: Single Spouse name: Years of education: 12 Number of children: 1 Occupational History Occupation Employer Comment [employer] Student Social History Main Topics Smoking status: [...] Call sugars in one week. - see insurance healthcare consultant. - will call sugars - BLOOD-GLUCOSE METER [...] grain hamburger bun, hot dog bun, or Mohawk muffin; ? of a small bagel or [...] whole grain crackers 1 small orange OR [place] with turkey, lettuce, tomato, 1 tablespoon reduced [...] ideas 3 cups unbuttered popcorn OR 1 kpsjg-ldt-t-half Luis A crackers OR ? cup whole [...] as noted above. These numbers can vary elcgux-ho-jpiuzb. Other Tips 1. Seeing a registered dietitian [...] Date Reviewed: 05/01/2018 Reviewed by: Jovana [place] Interpretive Ranger - Fully Assessed Reason for Visit: Diabetes [...] FOR*01/23/2010 Routine general medical examination at a [facility]*INVALID FOR*12/06/2012 Class: Chronic More... Routine gynecological examination [...] grain hamburger bun, hot dog bun, or [place]awk muffin; ? of a small bagel or [...] whole grain crackers 1 small orange OR [place] with turkey, lettuce, tomato, 1 tablespoon reduced [...] ideas 3 cups unbuttered popcorn OR 1 uqczt-zil-n-half Luis A crackers OR ? cup whole [...] as noted above. These numbers can vary itscgl-dn-ipjird. Other Tips 1. Seeing a registered dietitian [...] to your appointment. Visit Notes: >> Juliana Murphy Ma Mon Jul 21, 2018 3:50 PM [...] LIVER PROFILE Collected: 07/15/2018 Status: F Source: [place] 8:53 AM [facility] REPOSITORY TYPE CODE TESTS RESULT OUT OF [...] BILI 0.16 Performed By: #### L500.3400 #### [facility] [place], [address] HEMOGLOBIN A1C Collected: 07/15/2018 Status: F Source: [place] 8:53 AM [facility] REPOSITORY TYPE CODE TESTS RESULT OUT OF RANGE REFERENCE UNITS LAB L501.9985 4.2-6.3 % High HGB A1C 7.2 Performed By: #### L501.9985 #### [facility] [address] [place], [address] HEPATITIS ABC PROFILE Collected: 07/15/2018 Status: F Source: [place] 8:53 AM [facility] REPOSITORY TYPE CODE TESTS RESULT OUT OF RANGE REFERENCE UNITS LAB L3100.0200 Negative Normal HEP A Negative IgM 6734 LAB L3100.0300 Negative Normal HEP A Negative AB,T.6726 LAB L3100.0400 Negative Normal HB Negative SURF AG LAB L3100.0440 Negative Normal HB Negative CORE [id number] LAB L3100.0460 Negative Normal HEP B Negative [...] F Source: [place] VIRAL LOAD 8:53 AM [facility] REPOSITORY TYPE CODE TESTS RESULT OUT OF RANGE REFERENCE UNITS LAB L7000.7100 . IU/mL HCV Normal HCV Not Detected QT PCR LAB L7000.7350 . Test Normal HCV not performed log 10 LAB L7000.7500 . Normal TEST Comment INFO: Result Comment: The quantitative range of this assay is 15 IU/mL to 100 million IU/mL. Performed at: [facility] [address] [id number] Exhibit Carpenter: José Antonio Aldana PhD, Phone: [phone] Performed at: [facility] [address] [id number] Exhibit Carpenter: Zeferino Jovel MD, Phone: [phone] Performed By: #### L3000.0700, L7000.7000 #### [facility] (refer to report for specific site) refer to report for address and phone number URINALYSIS, EMPLOYEE Collected: 07/04/2018 Status: F Source: [place] 7:06 AM [facility] REPOSITORY TYPE CODE TESTS RESULT OUT OF [...] ESTERASE 100 Performed By: #### L400.0100 #### [facility] [address] [place], [address] CBC, EMPLOYEE Collected: 07/04/2018 Status: C Source: [place] 7:06 AM [facility] REPOSITORY TYPE CODE TESTS RESULT OUT OF [...] as: March Performed By: #### L100.0200 #### [facility] [address] [place], [place], [address] EMPLOYEE PROFILE Collected: 07/04/2018 Status: F Source: [place] 7:06 AM [facility] REPOSITORY TYPE CODE TESTS RESULT OUT OF [...] LDH 214 Performed By: #### L500.2900 #### [facility] [address] [place], [place], [address] NICOTINE URINE DRUG Collected: 07/04/2018 Status: F Source: [place] SCREEN 7:06 AM [facility] REPOSITORY TYPE CODE TESTS RESULT OUT OF [...] of Nicotine. Performed By: #### L505.6240 #### [facility] [address] [place], [place], [address] URGENT CARE VISIT Observed: 06/09/2018 Status: F Source: [place] REPORT 7:58 AM [facility] REPOSITORY [facility] [address] [place] [address] [address] [place] [address] OFFICE VISIT Date of Service: 05/26/18 MR#: [id number] Acct: [id number] Name: SALEEM GRAY Ivan Rep #: [id number] : 1980 Provider: Santana IRENE Age/Sex: 37/F Location: [facility] Status: Signed Intake Vital Signs05/26/18 Height 5 [...] CC: PROGRESS Observed: 06/03/2018 Status: COMPLETED Source: [place] 1:40 PM [facility] RE[facility]ORY HNO ID: [id number] Author: Krystle Carroll (Jonny) Mitchell Service: (none) Author Type: Physician Principal Scientist Type: Progress Notes Filed: 06/03/2018 2:42 PM [...] better. Hip hurts a little. Seeing chiropractor lucyi is working on left hip. Left arm and leg numbness is almost completely gone. Feels she can go off gabapentin. HISTORIES FAMILY HISTORY Problem Relation Age of Onset - Heart Father [place] - Heart Paternal Grandmother TRIPLE BYPASS SURGERY [...] children: 1 Occupational History Occupation Employer Comment [employer]* [employer] Student Social History Main Topics Smoking status: [...] one placed on 10/03/17 Disp: Rfl: 0 Qzdlitvy-In-Qar-Fe-FA ( FORMULA) ORAL Tab Take 1 tablet [...] PA-C CNOV Observed: 06/03/2018 Status: COMPLETED Source: [place] 1:20 PM [facility] REPOSITORY Office Visit (FAMPWS) SALEEM GRAY ([id number]) 1980 F Date Time Provider Department 06/03/18 [...] Relation Age of Onset - Heart Father [place] - Heart Paternal Grandmother TRIPLE BYPASS SURGERY [...] children: 1 Occupational History Occupation Employer Comment [employer]* [employer] Student Social History Main Topics Smoking status: [...] one placed on 10/03/17 Disp: Rfl: 0 Qdjrchxy-Le-Noo-Fe-FA ( FORMULA) ORAL Tab Take 1 tablet [...] Names: Rich Apo-Lorazepam; Ativan; Dom-Lorazepam; Lorazepam Injection, SENIOR LIVING; PHL-Lorazepam; PMS-Lorazepam; PRO-Lorazepam; Teva-Lorazepam What is this [...] Date Reviewed: 05/01/2018 Reviewed by: Jovana Hylton Cma - Fully Assessed Reason for Visit: Medication Follow-up [270] Cmt: anxiety but Buspar doesn't seem to be helping. Recently lost [...] Names: Rich Apo-Lorazepam; Ativan; Dom-Lorazepam; Lorazepam Injection, SENIOR LIVING; PHL-Lorazepam; PMS-Lorazepam; PRO-Lorazepam; Teva-Lorazepam What is this [...] CHIROPRACTIC REPORT Observed: 06/02/2018 Status: F Source: [place] 9:34 AM [facility] [address] [place] [address] OFFICE VISIT Date of Service: 05/26/18 MR#: [id number] Acct: [id number] Name: GRAYSALEEM Rep #: [id number] : 1980 Provider: Bibiana Rehman D.C. Age/Sex: 37/F Location: [facility] Status: Signed Intake Vital Signs05/26/18 Height 5 [...] Additional Codes Procedures - Manipulation: 3-4 regions (97895) Procedures - Electrical Stimulation: 15 mins (41865) 06/02/18 0934 <Electronically signed by Bibiana Rehman D.C.> Date Bibiana Rehman D.C. Cosigner Signature: Date (if applicable) CC: URINALYSIS, COMPLETE Collected: 05/26/2018 Status: F Source: [place] 7:04 PM [facility] REPOSITORY Order Comment: How was Urine Obtained? [...] RARE Performed By: #### L400.0001, M100.0650 #### [facility] [address] [place], [address] Observed: 05/26/2018 Status: F Source: [place] CULTURE, URINE 7:04 PM [facility] REPOSITORY Urine Culture Below infection level. ORGANISM 1: Mixed Gram Positive Organisms [place] Count 25,000-50,000 MIX CULTURE Mixed contaminants. Submit a new specimen if indicated. Performed By: #### L400.0001, M100.0650 #### [facility] [address] [facility] [place], [address] RIBS UNI MIN 3V Observed: 05/01/2018 Status: F Source: [place] W/PA CHEST 1:12 PM [facility] REPOSITORY [facility] Imaging Services [address] [place] [address] Ribs Uni Min 3V w/PA Chest MR#: [id number] Acct: [id number] Name: SALEEM GRAY Rep #: [id number] : 1980 F 37 From: Noe Michael MD PCP: Zeferino Leon MD Status: REG CLI Study: Ribs Uni Min 3V w/PA Chest Date of Exam: 05/01/18 Exam# [id number] Ordering Dr: CINDY EDOUARD STUDY: X-RAY - [...] , CC: CINDY EDOUARD; Zeferino Leon MD Financial Administration Officer: Signed DALE Observed: 05/01/2018 Status: COMPLETED Source: [place] 11:20 AM [facility] REPOSITORY Office Visit (FAMPWS) SALEEM GRAY ([id number]) 1980 F Date Time Provider Department 05/01/18 11:20 AM [facility] During your visit today, we recorded the [...] only. Bela: new one placed on 10/03/17 Tqactlvn-De-Lrj-Fe-FA ( FORMULA) ORAL Tab Take 1 tablet by mouth once daily. No current facility-administered medications for this visit. FAMILY HISTORY Problem Relation Age of Onset - Heart Father [place] - Heart Paternal Grandmother TRIPLE BYPASS SURGERY - Cancer Maternal Grandmother LUNG CANCER - Cancer Father PANCREATIC CANCER - Diabetes Maternal Grandfather - Diabetes Father - Alcohol/Drug Mother Social History Marital status: Single Spouse name: Years of education: 12 Number of children: 1 Occupational History Occupation Employer Comment [employer]* [employer] Student Social History Main Topics Smoking status: [...] - Chest X-ray today. She works as [employer] and requests to go there. - Continue [...] Date Reviewed: 05/01/2018 Reviewed by: Jovana [place] Interpretive Ranger - Fully Assessed Reason for Visit: left rib pain [Other] Cmt: X 1 week Primary Visit Diagnosis:Rib pain on left side [R07.81] Order(s):XR RIBS/CHEST 3V AP RIB/OBLS/CXR LT [[id number]] Order #: [id number] FUTURE Prescriptions as of 05/01/2018 Sig: MELOXICAM [...] 05/01/18 PROGRESS Observed: 05/01/2018 Status: COMPLETED Source: [place] 10:59 AM [facility] [place] REPOSITORY HNO ID: [id number] Author: Cindy (Brandan) Silke Service: (none) Author [...] only. Bela: new one placed on 10/03/17 Jnngsnsa-Xv-Jic-Fe-FA ( FORMULA) ORAL Tab Take 1 tablet by mouth once daily. No current facility-administered medications for this visit. FAMILY HISTORY Problem Relation Age of Onset - Heart Father [place] - Heart Paternal Grandmother TRIPLE BYPASS SURGERY - Cancer Maternal Grandmother LUNG CANCER - Cancer Father PANCREATIC CANCER - Diabetes Maternal Grandfather - Diabetes Father - Alcohol/Drug Mother Social History Marital status: Single Spouse name: Years of education: 12 Number of children: 1 Occupational History Occupation Employer Comment [employer] and [employer]* [employer] Student Social History Main Topics Smoking status: [...] - Chest X-ray today. She works as [employer] and requests to go there. - [...] as needed for worsening/no improvement. Cindy Edouard APRN.CANE BURNER 12 LEAD ELECTROCARDIOGRAM Observed: 03/12/2018 Status: F Source: [place] 1:36 PM [facility] REPOSITORY [facility] Cardiovascular Services [address] [place] [address] 12 Lead EKG 03/09/18 1041 MR#: [id number] Acct: [id number] Name: SALEEM GRAY Rep #: [id number] : 1980 37 From: Angel Cruz MD [...] Abnormal ECG Confirmed by NANCY SHEARER, ANGEL ([id number]), make up editor GRAZYNA BLOOD ([id number]) on 03/12/2018 1:35:32 PM Referred By: JIMENA/JADE Confirmed By:ANGEL CRUZ MD 03/12/18 1335 Date Angel Cruz MD CC: MD Gume Gauthier; Zeferino Leon MD Signed 12 LEAD ELECTROCARDIOGRAM Observed: 03/12/2018 Status: F Source: [place] 1:35 PM [facility] REPOSITORY [facility] Cardiovascular Services [address] [place] [address] 12 Lead EKG 03/09/18 1417 MR#: [id number] Acct: [id number] Name: SALEEM GRAY Rep #: [id number] : 1980 37 From: Angel Cruz MD [...] ECG Confirmed by NANCY SHEARER, ANGEL ([id number]), make up editor GRAZYNA BLOOD ([id number]) on 03/12/2018 1:35:10 PM Referred By: JADE Confirmed By:ANGEL CRUZ MD 03/12/18 1335 Date Angel Cruz MD CC: MD Gume Gauthier; Zeferino Leon MD Signed PROGRESS Observed: 03/10/2018 Status: COMPLETED Source: [place] 4:41 PM [facility] REPOSITORY O ID: [id number] Author: Zeferino Leon Service: (none) Author Type: Physician Type: Progress Notes Filed: 03/10/2018 4:59 PM Note Text: Patient presents with: Back Pain HPI: Patient presents today for office visit for follow up. Seen in [facility] ER yesterday with right sided chest [...] not any better. Suggested she could consider station installation supervisor if we needed to determine if it [...] only. Bela: new one placed on 10/03/17 Cmsvnsih-Oo-Xyq-Fe-FA ( FORMULA) ORAL Tab Take 1 tablet [...] Relation Age of Onset - Heart Father [place] - Heart Paternal Grandmother TRIPLE BYPASS SURGERY - Cancer Maternal Grandmother LUNG CANCER - Cancer Father PANCREATIC CANCER - Diabetes Maternal Grandfather - Diabetes Father - Alcohol/Drug Mother Social History Marital status: Single Spouse name: Years of education: 12 Number of children: 1 Occupational History Occupation Employer Comment [employer] Student Social History [...] MD CNOV Observed: 03/10/2018 Status: COMPLETED Source: [place] 4:00 PM [facility] REPOSITORY [facility]ALE[facility] G[facility] ([id number]) 1980 F Date Time Provider Department 03/10/18 4:00 PM [facility] During your visit today, we recorded the following information about you: Temperature Pulse Respiration Blood pressure 98.7 degrees 80/minute 14/minute 136/88 Weight 133.8 kg Zeferino Leon 03/10/2018 4:59 PM Signed Patient presents with: Back Pain HPI: Patient presents today for office visit for follow up. Seen in [facility] ER yesterday with right sided chest [...] not any better. Suggested she could consider station installation supervisor if we needed to determine if it [...] only. Bela: new one placed on 10/03/17 Wtwbnwyn-Zx-Fjs-Fe-FA ( FORMULA) ORAL Tab Take 1 tablet [...] Relation Age of Onset - Heart Father [place] - Heart Paternal Grandmother TRIPLE BYPASS SURGERY - Cancer Maternal Grandmother LUNG CANCER - Cancer Father PANCREATIC CANCER - Diabetes Maternal Grandfather - Diabetes Father - Alcohol/Drug Mother Social History Marital status: Single Spouse name: Years of education: 12 Number of children: 1 Occupational History Occupation Employer Comment [employer]* [employer] Student Social History Main Topics Smoking status: [...] EMERGENCY DEPARTMENT Observed: 03/09/2018 Status: F Source: [place] SUMMARY 3:12 PM [facility] REPOSITORY [facility] Medical Records Department [address] [place] [address] Emergency Department Summary 03/09/18 1052 MR#: [id number] Acct: [id number] Name: SALEEM GRAY Rep #: [id number] : 1980 37 From: Hermelindo Gauthier MD [...] for evaluation she has no history of [place] PE DVT asthma emphysema or any cardiovascular [...] extremities normal pulses sensation cap refill and turning lathe tender Test Results: [] Emergency Department Course and [...] etiology unclear This note was generated with Baccaratation software. It may contain incorrect words, spelling, [...] your Primary Care Provider. Call [facility] ([phone]) or report to the closest Emergency Room. Call 911 if necessary. 03/09/18 0162 <Electronically signed by Hermelindo Gauthier MD> Date Hermelindo Gauthier MD Cosigner Signature (If Indicated): Date CC: Zeferino Leon MD DISCHARGE INSTRUCTION Observed: 03/09/2018 Status: F Source: [place] 1:50 PM [facility] REPOSITORY [facility] Medical Records Department [address] [place] [address] Discharge Instruction 03/09/18 1348 MR#: [id number] Acct: [id number] Name: SALEEM GRAY Rep #: [id number] : 1980 37 From: Hermelindo Gauthier MD [...] your Primary Care Provider. Call [facility] ([phone]) or report to the closest Emergency Room. Call 911 if necessary. 03/09/18 1350 <Electronically signed by Hermelindo Gauthier MD> Date Hermelindo Gauthier MD Cosigner Signature (If Indicated): Date CC: Zeferino Leon MD DISCHARGE INSTRUCTION Observed: 03/09/2018 Status: F Source: [place] 1:47 PM [facility] REPOSITORY [facility] Medical Records Department [address] [place] [address] Discharge Instruction 03/09/18 1347 MR#: [id number] Acct: [id number] Name: SALEEM GRAY Rep #: [id number] : 1980 37 From: Hermelindo Gauthier MD [...] your Primary Care Provider. Call [facility] ([phone]) or report to the closest Emergency Room. Call 911 if necessary. 03/09/18 1347 <Electronically signed by Hermelindo Gauthier MD> Date Hermelindo Gauthier MD Cosigner Signature (If Indicated): Date CC: Zeferino Leon MD TROPONIN-I Collected: 03/09/2018 Status: F Source: [place] 12:55 PM [facility] REPOSITORY Order Comment: Comments: Draw at 1 PM 'TROP' Serial specimen #1, #2, #3, or #4: 1 TYPE CODE TESTS RESULT OUT OF RANGE REFERENCE UNITS LAB L501.4010 <0.06 ng/mL Normal < 0.02 TROPONIN-I Result Comment: TROPONIN-I EXPECTED VALUES <0.05 NEGATIVE 0.06 - 0.59 AT RISK OF [place] > OR = 0.60 SUGGEST [place] Performed By: #### L501.4010 #### [facility] [place], [address] CBC W/DIFF, AUTOMATED Collected: 03/09/2018 Status: F Source: [place] 10:45 AM [facility] REPOSITORY TYPE CODE TESTS RESULT OUT OF [...] Lymph 2.30 Performed By: #### L100.0100 #### [facility] [address] [facility] [place], [place], [address] D-DIMER QUANTITATIVE Collected: 03/09/2018 Status: F Source: [place] (DVT/PE) 10:45 AM [facility] REPOSITORY TYPE CODE TESTS RESULT OUT OF RANGE REFERENCE UNITS LAB L300.8000 0.27-0.49 FEU/ug/m Normal D-DIMER 0.37 QUANT Result Comment: NORMAL D-Dimer level (<0.50) indicates no DVT or PE. Performed By: #### L300.8000 #### [facility] [address] [facility] [place], [place], [address] BASIC METABOLIC Collected: 03/09/2018 Status: F Source: [place] PROFILE (BMP) 10:45 AM [facility] REPOSITORY Order Comment: 'TROP' Serial specimen #1, [...] 9 Performed By: #### L500.2500, L501.4010 #### [facility] [address] [facility]. [place], [place], [address] TROPONIN-I Collected: 03/09/2018 Status: F Source: [place] 10:45 AM [facility] REPOSITORY Order Comment: 'TROP' Serial specimen #1, #2, #3, or #4: 1 TYPE CODE TESTS RESULT OUT OF RANGE REFERENCE UNITS LAB L501.4010 <0.06 ng/mL Normal < 0.02 TROPONIN-I Result Comment: TROPONIN-I EXPECTED VALUES <0.05 NEGATIVE 0.06 - 0.59 AT RISK OF [place] > OR = 0.60 SUGGEST [place] Performed By: #### L500.2500, L501.4010 #### [facility] [address] [facility]. [place], [place], [address] CHEST 1 VIEW Observed: 03/09/2018 Status: F Source: [place] (PORTABLE) 10:44 AM [facility] Imaging Services [address] [place] [address] Chest 1 View (Portable) MR#: [id number] Acct: [id number] Name: SALEEM GRAY Rep #: [id number] : 1980 F 37 From: Dre Saldivar DO PCP: Zeferino Leon MD Status: PRE ER Study: Chest 1 View (Portable) Date of Exam: 03/09/18 Exam# [id number] Ordering Dr: Hermelindo Gauthier MD STUDY: X-RAY [...] Dre Saldivar DO at 11:07 EDT Tel [phone], Service support , CC: MD Gume Gauthier; Zeferino Leon MD Financial Administration Officer: Signed OPERATIVE REPORT Observed: 02/03/2018 Status: F Source: [place] 10:59 AM [facility] REPOSITORY [facility] Medical Records Department [address] [place] [address] Operative Report 02/03/18 1055 MR#: [id number] Acct: [id number] Name: SALEEM GRAY Rep #: [id number] : 1980 37 From: Noe Lai MD PCP: Zeferino Leon MD Status: DEP [facility] Y Location: [facility] Problem List (1) Lumbosacral spondylosis Status: Chronic [...] OR 3 Observed: 02/03/2018 Status: F Source: [facility] 4:53 AM [facility] REPOSITORY [facility] Imaging Services [address] [place] [address] Lumbar Spine 2 or 3 Views MR#: [id number] Acct: [id number] Name: SALEEM GRAY Rep #: [id number] : 1980 F 37 From: Chelsea Gomez MD PCP: Zeferino Leon MD Status: [facility] Study: Lumbar Spine 2 or 3 Views Date of Exam: 02/03/18 Exam# [id number] Ordering Dr: Noe Lai MD CLINICAL HISTORY: [...] , CC: Noe Lai; Zeferino Leon MD Financial Administration Officer: Signed ORTHOPEDIC VISIT Observed: 12/30/2017 Status: F Source: [place] REPORT 2:45 PM [facility] REPOSITORY [facility] Orthopaedics AND Sports Medicine [address] [place] [address] OFFICE VISIT Date of Service: 12/27/17 MR#: [id number] Acct: [id number] Name: SALEEM GRAY Rep #: [id number] : 1980 Provider: Jackson Brown DO Age/Sex: 37/F Location: [facility] Status: Signed Intake Intake Visit Reasons: low [...] work but also give her the appropriate [employer] [facility] 14 C9 aware of her Workmen's Comp. [...] BRAIN/HEAD WITHOUT Observed: 12/13/2017 Status: F Source: [place] CONTRAST 2:17 PM [facility] REPOSITORY [facility] Imaging Services [address] [place] [address] Brain/Head without Contrast MR#: [id number] Acct: [id number] Name: SALEEM GRAY Rep #: [id number] : 1980 F 37 From: Emiliano Gonzalez MD PCP: Zeferino Leon MD Status: REG CLI Study: Brain/Head without Contrast Date of Exam: 12/13/17 Exam# [id number] Ordering Dr: Krystle Medrano STUDY: CT BRAIN [...] Emiliano Gonzalez MD at 15:07 EST Tel [phone], Service support , CC: Krystle Medrano; Zeferino Leon MD Financial Administration Officer: Signed CBC W/DIFF, AUTOMATED Collected: 12/13/2017 Status: F Source: [place] 10:29 AM [facility] REPOSITORY TYPE CODE TESTS RESULT OUT OF [...] Lymph 2.81 Performed By: #### L100.0100 #### [facility] [address] [place], [address] COMPREHENSIVE METABOLIC Collected: 12/13/2017 Status: F Source: [place] [facility] 10:29 AM [facility] REPOSITORY TYPE CODE TESTS RESULT OUT OF [...] 10 Performed By: #### L500.4050, L501.9520 #### [facility] [address] [place], [address] THYROID STIM HORMONE Collected: 12/13/2017 Status: F Source: [place] (TSH) 10:29 AM [facility] REPOSITORY TYPE CODE TESTS RESULT OUT OF RANGE REFERENCE UNITS LAB L501.95 0.358-3.74 uIU/mL Normal TSH 3.29 Performed By: #### L500.4050, L501.9520 #### [facility] [address] [place], [address] PROGRESS Observed: 12/13/2017 Status: COMPLETED Source: ANTIOCH 9:13 AM [facility] REPOSITORY HNO ID: [id number] Author: Krystle Carroll (Jonny) Mitchell Service: (none) Author Type: Physician Principal Scientist Type: Progress Notes Filed: 12/13/2017 1:29 PM [...] Relation Age of Onset - Heart Father [place] - Heart Paternal Grandmother TRIPLE BYPASS SURGERY [...] children: 1 Occupational History Occupation Employer Comment [employer] Social History Main Topics Smoking status: [...] one placed on 10/03/17 Disp: Rfl: 0 Rztgnptu-Xk-Usn-Fe-FA ( FORMULA) ORAL Tab Take 1 tablet [...] OPERATIVE REPORT Observed: 12/09/2017 Status: F Source: [place] 2:47 PM [facility] REPOSITORY [facility] Medical Records Department [address] [place] [address] Operative Report 12/09/17 1444 MR#: [id number] Acct: [id number] Name: SALEEM GRAY Rep #: [id number] : 1980 37 From: Noe Lai MD PCP: Zeferino Leon MD Status: REG [facility] Y Location: [place] [address] Problem List (1) Degeneration of intervertebral disc [...] CC: Noe Lai; Zeferino Leon MD Signed ,URINE Collected: 12/09/2017 Status: F Source: [place] 12:10 PM [facility] REPOSITORY TYPE CODE TESTS RESULT OUT OF REFERENCE UNITS RANGE LAB L400.8000 Negative Normal HCGUQUAL Negative Result Comment: Very dilute urine specimens, as indicated by a low specific gravity, may not contain sales representative gas service levels of hCG. If is still suspected, a first morning urine specimen should be collected 48 hours later and tested. Performed By: #### L400.7600 #### [facility] [address] [place], [address] FLUOR GUIDANCE FOR Observed: 12/09/2017 Status: F Source: [place] SPINE INJ 3:06 AM [facility] REPOSITORY [facility] Imaging Services [address] [place] [address] Fluor Guidance for Spine Inj MR#: [id number] Acct: [id number] Name: SALEEM GRAY Rep #: [id number] : 1980 F 37 From: Emiliano Gonzalez MD PCP: Zeferino Leon MD Status: [facility] Study: Fluor Guidance for Spine Inj Date of Exam: 12/09/17 Exam# [id number] Ordering Dr: Noe Lai MD PROCEDURE: Caudal block. DATE OF EXAMINATION: December 09, 2017. INDICATION: Female, 37 years old. Low back pain. FLUOROSCOPY TIME (if supplied): (0:06) minutes/seconds Intraoperative imaging provided for caudal block. RAD/Fluor Guidance for Spine Inj IMPRESSION: Intraoperative imaging provided for caudal block. Electronically Signed: Emiliano Gonzalez MD at 15:57 EST Tel [phone], Service support , CC: Noe Lai; Zeferino Leon MD Financial Administration Officer: Signed ALLERGIES ALLERGIES DATE TYPE / CODE NAME / CODE REACTION SEVERITY SOURCE 09/30/2018 Drug No Known Unknown [facility] Allergy/416 Allergies/O60760 Hospital 706453(SNOM 0388(RXNORM) Repository ED CT) Drug NO KNOWN [facility] Class/10705 ALLERGIES Main [place] 1003(SNOMED Repository CT) ENCOUNTERS ENCOUNTERS ADMIT/DISCHARGE ACCOUNT ADMITTING ENCOUNTER LOCATION SOURCE NUMBER CLASS 12/01/2018/12/01/19 [id number] Ambulatory [address] Repository 11/26/2018 [id number] Ambulatory [facility] Hospital ing:RAD Repository 11/26/2018/11/27/19 [id number] Ambulatory [address] Repository 11/25/2018/11/25/19 [id number] Ambulatory BMSBuilding:B [place] [address] [facility] Repository 11/20/2018/11/20/19 [id number] Ambulatory BMSBuilding:B [place] [facility] Repository 11/18/2018/11/18/19 [id number] Ambulatory BMSBuilding:B [place] 19 [facility] Repository 11/17/2018/11/18/19 [id number] Ambulatory [address] Repository 09/30/2018/09/30/20 [id number] [place] [facility] ing:ED Repository 09/30/2018 [id number] Ambulatory [facility] Hospital ing:LAB.FUTUR Repository E 09/29/2018/09/30/20 [id number] Ambulatory [address] Repository 09/18/2018 [id number] Ambulatory [facility] Hospital ing:DC Repository 08/28/2018/09/03/20 [id number] Ambulatory [address] [facility] Hospital ing:DC Repository 08/21/2018/08/22/20 [id number] Ambulatory [address] Repository 07/25/2018 [id number] Ambulatory [facility] Hospital[facility] Hospital ing:LAB.FUTUR Repository E 07/24/2018 [id number] Ambulatory [facility] Hospital ing:LAB Repository 07/23/2018/07/23/20 [id number] Ambulatory BMSBuilding:W [place] [facility] Repository 07/22/2018/07/23/20 [id number] [place], Ambulatory [place] Hospital ing:PCURoom: Repository [id number]: 1 07/22/2018 [id number] [place], Ambulatory BMSBuilding:B [place] Hospital Repository 07/22/[id number] [facility], Ambulatory BMSBuilding:[place] Hospital Repository 07/21/2018/07/22/20 [id number] Ambulatory [address] Repository 07/15/2018 [id number] Ambulatory [facility] Hospital ing:LAB.FUTUR Repository E 07/04/2018 [id number] Ambulatory [facility] Hospital ing:EMPH Repository 06/10/2018 [id number] Ambulatory BMSBuilding:[place] Repository 06/03/2018/06/04/20 [id number] Ambulatory [address] Repository 05/26/2018 [id number] Ambulatory [facility] Hospital ing:LABSPEC Repository 05/26/2018/05/26/20 [id number] Ambulatory BMSBuilding:B [place] 18 [facility] Hospital Repository 05/26/2018/05/26/20 [id number] Ambulatory BMSBuilding:B [place] 18 [facility] Repository 05/01/2018 [id number] Ambulatory [facility] Hospital ing:RAD Repository 05/01/2018/05/02/20 [id number] Ambulatory [address] Repository 03/10/2018/03/11/20 [id number] Ambulatory [address] Repository 03/09/2018/03/09/20 [id number] [place] Hospital ing:ED Repository 02/03/2018/02/04/20 [id number] Ambulatory [address] Hospital ing:SDC Repository 12/27/2017/12/27/19 [id number] Ambulatory BMSBuilding:B [place] 18 [facility] Repository 12/13/2017 [id number] Ambulatory [facility] Hospital ing:CT Repository 12/13/2017 [id number] Ambulatory [place] [facility] ing:LAB Repository 12/13/2017/12/13/19 [id number] Ambulatory [address] Repository 12/09/2017/12/09/19 [id number] Ambulatory [address] ing:SDCRoom: Repository AC20 PAYERS PAYERS ENCOUNTER GUARANTOR PAYER SUBSCRIBER SOURCE 11/26/2018 SALEEM Love Primary Insurance:[facility] SALEEM Mayer [id number] [facility]: [facility] L[facility]NE [facility] [id number] Number: Repository [address]Rhe: 330 [id number] [phone] () Date:8765-13-09ND [address] [address]HIFTFTSPD, [place] [address]UG: CHECK WEBSITE 11/26/2018 Secondary NOT GIVENUNK [place] Insurance:SELF PAY [facility] Number: Effective Repository Date:2018-11-26 11/25/2018 LORFOREIGNE B Primary Insurance:[facility] SALEEM [place] [id number] [facility]: [facility] LYNNE [facility] [id number] Number: Repository [address]Lju: 330 [id number] [phone] () Date:9437-27-27TG [address] [address]NNIDV, [place] [address]AN: CHECK WEBSITE 11/25/2018 Secondary NOT GIVENUNK [place] Insurance:SELF PAY [facility] Number: Effective Repository Date:2018-11-25 11/20/2018 LORILIE B Primary Insurance:[facility] SALEEM Mayer [id number] [facility]: [facility] LYNNE PAZ [facility] [id number] Number: Repository [address]Oea: 330 [id number] [phone] () Date:0002-05-22VX [address] [address]YTCNXFRBA, [place] [address]SA: CHECK WEBSITE 11/20/2018 Secondary NOT GIVENUNK [place] Insurance:SELF PAY [facility] Number: Effective Repository Date:2018-11-19 11/18/2018 LORILIE B Primary Insurance:[facility] LORILIE B [place] [id number] [facility] BENNETTDOB: Formerly [facility] LYNNE [facility] [id number] Number: Repository [address]Vny: ([phone] [id number] [phone] (HP) Date:2475-40-34RN [address] [address]IORRWJXGT, [place] [address]NE: CHECK WEBSITE 11/18/2018 Secondary NOT GIVENUNK [place] Insurance:SELF PAY [facility] Number: Effective Repository Date:2018-11-18 09/30/2018 LORILIE B Primary LORILIE B [place] [id number] Insurance:[facility] BENNETTDOB: Formerly [facility] [id number] Number: Repository [address]Hnc: (092) [id number] [phone] (HP) Date:5755-29-46BC [address]QWHSQRTH, [place] [address]AM: 09/30/2018 Secondary LORILIE B [place] Insurance:[facility] BENNETTDOB: [facility] [id number] Hospital Number: Repository [id number] Date:0707-92-67HI [address] [address]IEHAMSMGU, [place] [address]WR: CHECK WEBSITE 09/30/2018 Tertiary NOT GIVENUNK [place] Insurance:SELF PAY [facility] Number: Effective Repository Date:2018-09-30 09/30/2018 LORILIE B Primary Insurance:[facility] LORILIE B [place] [id number] [facility] BENNETTDOB: Formerly [facility] LYNNE PAZ [facility] [id number] Number: Repository [address]Xlc: (576) [id number] [phone] (HP) Date:4720-81-59NP [address] [address]EGVFTEJPU, [place] [address]KD: CHECK WEBSITE 09/30/2018 Secondary NOT GIVENUNK [place] Insurance:SELF PAY [facility] Number: Effective Repository Date:2018-07-28 09/18/2018 LORILIE B Primary Insurance:[facility] ANNAMARIAE Ivan [place] [id number] [facility] BENNETTDOB: [facility]ly [facility]NE [facility] [id number] Number: Repository [address]Zqq: 330 [id number] [phone] () Date:4110-18-82JU [address] [address]BMPYDRMSN, [place] [address]UU: CHECK WEBSITE 09/18/2018 Secondary NOT GIVENUNK [place] Insurance:SELF PAY [facility] Number: Effective Repository Date:2018-09-04 08/28/2018 LORILIE B Primary Insurance:[facility] ALEAILIE Ivan [place] [id number] [facility] BENNETTDOB: [facility] [id number] Number: Repository [address]Suv: 330 [id number] [phone] () Date:3119-90-05CN [address] [address]INPMDRDTA, [place] [address]FK: CHECK WEBSITE 08/28/2018 Secondary NOT GIVENUNK [place] Insurance:SELF PAY [facility] Number: Effective Repository Date:2018-08-13 07/25/2018 LORILIE B Primary Insurance:[facility] ALEAILIE Ivan [place] [id number] [facility] BENNETTDOB: Formerly [facility] ROMNORTHWEST MEDICAL CENTERNevaeh MAGANAMem[facility] [id number] Number: Repository [address]Kwd: 330 [id number] [phone] () Date:9168-46-36TN [address] [address]FGAKPRREG, [place] [address]CE: CHECK WEBSITE 07/25/2018 Secondary NOT GIVENUNK [place] Insurance:SELF PAY [facility] Number: Effective Repository Date:2018-07-25 07/24/2018 LORILIE B Primary Insurance:[facility] ANNAMARIAE Ivan [place] [id number] [facility] BENNETTDOB: Formerly [facility] [id number] Number: Repository [address]Mqj: 330 [id number] [phone] () Date:5800-04-92JV [address] [address]RGZLXOAXN, [place] [address]DS: CHECK WEBSITE 07/24/2018 Secondary NOT GIVENUNK [place] Insurance:SELF PAY [facility] Number: Effective Repository Date:2018-07-24 07/23/2018 LORILIE B Primary Insurance:[facility] LORFOREIGNE B [place] [id number] [facility] BENNETTDOB: Formerly [facility] ROMANDY [address] SERVICESDepartment Of Veterans Affairs Medical [facility] [id number] Number: Repository [address]Rpu: 330 [id number] [phone] () Date:3355-87-64MI [address] [address]EBNWQIRJQ, [place] [address]YV: CHECK WEBSITE 07/23/2018 Secondary NOT GIVENUNK [place] Insurance:SELF PAY [facility] Number: Effective Repository Date:2018-07-23 07/22/2018 LORILIE B Primary Insurance:[facility] LORFOREIGNE B [place] [id number] [facility] BENNETTDOB: [facility]ly [facility] LYNNE MAGANA[facility] SERVICESDepartment Of Veterans Affairs [facility] [id number] Number: Repository [address]Evl: 330 [id number] [phone] () Date:6019-43-97JR [address] [address]EUOTXSFZB, [place] [address]DT: CHECK WEBSITE 07/22/2018 Secondary NOT GIVENUNK [place] Insurance:SELF PAY [facility] Number: Effective Repository Date:2018-07-22 07/22/2018 LORILIE B Primary Insurance:[facility] LORILIE B [place] [id number] [facility]ITALNETTDOB: [facility] LYNNE MAGANAAPT SERVICESDepartment Of Veterans Affairs Medical Center[facility] [id number] Number: Repository [address]Mzg: 330 [id number] [phone] () Date:0631-23-34FQ [address] [address]BNARTAIBD, [place] [address]LV: CHECK WEBSITE 07/22/2018 Secondary NOT GIVENUNK [place] Insurance:SELF PAY [facility] Number: Effective Repository Date:2018-07-22 07/22/2018 LORILIE B Primary Insurance:[facility] SALEEM Love [place] [id number] [facility]ITALNETTDOB: [facility] LYNNE PAZ SERVICESDepartment Of Veterans Affairs Medical Center[facility] [id number] Number: Repository [address]Nkd: 330 [id number] [phone] () Date:3714-50-47OD [address] [address]AWLNBIBVG, [place] [address]BV: CHECK WEBSITE 07/22/2018 Secondary NOT GIVENUNK [place] Insurance:SELF PAY [facility] Number: Effective Repository Date:2018-07-22 07/15/2018 LORILIE B Primary Insurance:[facility] SALEEM Love [place] [id number] [facility]ENTERB: [facility] LYNNE MAGANAMem[facility]loan [facility] [id number] Number: Repository [address]Bae: 330 [id number] [phone] () Date:4441-08-45YG [address] [address]OWEJIACHY, [place] [address]SP: CHECK WEBSITE 07/15/2018 Secondary NOT GIVENUNK [place] Insurance:SELF PAY [facility] Number: Effective Repository Date:2018-07-08 07/04/2018 LORILIE B Primary NOT GIVENUNK [place] [id number] Insurance:SELF PAY [address] Number: Effective Repository [address]Byo: 330) Date:2018-07-04 [phone] () 06/10/2018 LORILIE B Primary Insurance:[facility] SALEEM Love [place] [id number] [facility]: [facility] LYNNE MAGANAAPT SERVICESDepartment Of Veterans Affairs Medical [facility] [id number] Number: Repository [address]Xyh: 330 [id number] [phone] () Date:7660-82-33NP [address] [address]SCSLZTOFK, [place] [address]MX: CHECK WEBSITE 06/10/2018 Secondary NOT GIVENUNK [place] Insurance:SELF PAY [facility] Number: Effective Repository Date:2018-05-30 05/26/2018 LORILIE B Primary Insurance:[facility] LORILIE B [place] [id number] [facility] BENNETTDOB: Formerly [facility] LYNNE PAZ SERVICESDepartment Of Veterans Affairs Medical [facility] [id number] Number: Repository [address]Gcz: 330 [id number] [phone] (HP) Date:7884-17-06OB [address] [address]CXHNEPRJX, [place] [address]TD: CHECK WEBSITE 05/26/2018 Secondary NOT GIVENUNK [place] Insurance:SELF PAY [facility] Number: Effective Repository Date:2018-05-26 05/26/2018 LORILIE B Primary Insurance:[facility] SALEEM Love [place] [id number] [facility] BENNETTDOB: [facility]ly [facility] LYNNE MAGANACASTLEVIEW HOSPITAL SERVICESDepartment Of [facility] [id number] Number: Repository [address]Chv: 330 [id number] [phone] (HP) Date:4716-19-44SK [address] [address]LZUXSDBHC, [place] [address]ZF: CHECK WEBSITE 05/26/2018 Secondary NOT GIVENUNK [place] Insurance:SELF PAY [facility] Number: Effective Repository Date:2018-05-26 05/26/2018 LORILIE B Primary Insurance:[facility] SALEEM Estradaoster [id number] [facility] BENNETTDOB: [facility]ly [facility] LYNNE MAGANACASTLEVIEW HOSPITAL SERVICESDepartment Of Veterans Affairs [facility] [id number] Number: Repository [address]Mkf: 330 [id number] [phone] () Date:3050-48-16DG [address] [address]OMLSJEFVH, [place] [address]QI: CHECK WEBSITE 05/26/2018 Secondary NOT GIVENUNK [place] Insurance:SELF PAY [facility] Number: Effective Repository Date:2018-05-26 05/01/2018 LORILIE B Primary Insurance:[facility] SALEEM Mayer [id number] [facility] BENNETTDOB: [facility]ly [facility] LYNNE MAGANAMem[facility] [id number] Number: Repository [address]Nrc: 330 [id number] [phone] (HP) Date:5070-64-96JI [address] [address]LEJVDMMXY, [place] [address]VN: CHECK WEBSITE 05/01/2018 Secondary NOT GIVENUNK [place] Insurance:SELF PAY [facility] Number: Effective Repository Date:2018-05-01 03/09/2018 LORILIE B Primary Insurance:[facility] SALEEM Mayer [id number] [facility] BENNETTDOB: Formerly [facility] LYNNE PAZ SERVICESDepartment Of Veterans Affairs Medical [facility] [id number] Number: Repository [address]Tcq: 330 [id number] [phone] () Date:1983-99-54UC [address] [address]XCWUQOZCD, [place] [address]WE: CHECK WEBSITE 03/09/2018 Secondary NOT GIVENUNK [place] Insurance:SELF PAY [facility] Number: Effective Repository Date:2018-03-09 02/03/2018 LORILIE B Primary Insurance:[facility] SALEEM [place] [id number] [facility] BENNETTDOB: [facility] [facility] LYNNE MAGANAAPT SERVICESDepartment [facility] [id number] Number: Repository [id number]: 330 [id number] [phone] () Date:7778-02-95ZB [address] [address], [place] [address]HX: CHECK WEBSITE 02/03/2018 Secondary NOT GIVENUNK [place] Insurance:SELF PAY [facility] Number: Effective Repository Date:2018-01-27 12/27/2017 [place] Primary Insurance:[facility] SALEEM Mayer [id number] [facility] BENNETTDOB: Formerly [facility] LYNNE PAZ SERVICESDepartment Of [facility] [id number] Number: Repository [address]Hvc: 330 [id number] [phone] () Date:7419-03-64UP [address] [address], [place] [address]ID: CHECK WEBSITE 12/27/2017 Secondary NOT GIVENUNK [place] Insurance:SELF PAY [facility] Number: Effective Repository Date:2017-12-26 12/13/2017 [place] Primary Insurance:[facility] SALEEM Mayer [id number] [facility] BENNETTDOB: Formerly [facility] LYNNE PAZ [facility] [id number] Number: Repository [address]Nin: 330 [id number] [phone] () Date:3398-41-78KF [address] [address], [place] [address]YY: CHECK WEBSITE 12/13/2017 Secondary NOT GIVENUNK [place] Insurance:SELF PAY [facility] Number: Effective Repository Date:2017-12-13 12/13/2017 [place] Primary Insurance:[facility] [place] [id number] [facility]: [facility] LYNNE PAZ [facility] [id number] Number: Repository [id number]: 330 [id number] [phone] () Date:9069-31-52TV [address] [address], [place] [address]QF: CHECK WEBSITE 12/13/2017 Secondary NOT GIVENUNK [place] Insurance:SELF PAY [facility] Number: Effective Repository Date:2017-12-13 12/09/2017 [place] Primary Insurance:[facility] [place] [id number] [facility]: [facility] LYNNE PAZ [facility] [id number] Number: Repository [id number]: 330 [id number] [phone] () Date:1601-37-73EU [address] [address], [place] [address]MF: CHECK WEBSITE 12/09/2017 Secondary NOT GIVENUNK [place] Insurance:SELF PAY [facility] Number: Effective Repository Date:2017-12-03
== END ==
PROVIDERS: Family Provider Family Medicine; PCP Family Medicine; Referring Provider Family Medicine; Visit Provider Family Medicine
DX: M54.5 Low back pain (principal)
CPT/HCPCS: 72100

== ENCOUNTER → 2018-12-11 09:11 | Outpatient (CLI) | payer OTHER, SELFPAY ==
[2018-12-09 15:46] VITALS: BMI 46.5
[2018-12-11 10:44] LABS: Hemoglobin A1c 7.6 % (4.2-6.3)
[2018-12-11 10:49] LABS: Anion Gap 10 (5-15); BUN 12 mg/dL (7-18); BUN/Creat Ratio 21.9 RATIO (10-20); Calcium,Total 8.2 mg/dL (8.5-10.1); Chloride 103 mmol/L (98-107); Creatinine, Serum 0.55 mg/dL (0.55-1.02); EST Glomerular Filtration Rate 133 mL/min (>60); Est Glom Filt Rate - Afr Amer 161 mL/min (>60); Glucose 166 mg/dL (74-106); Potassium 3.9 mmol/L (3.5-5.1); Sodium Level 137 mmol/L (136-145)
== END ==
PROVIDERS: Family Provider Family Medicine; PCP Family Medicine; Referring Provider Family Medicine; Visit Provider Family Medicine
DX: E11.9 Type 2 diabetes mellitus without complications (principal)
CPT/HCPCS: 36415; 80048; 83036

== ENCOUNTER 2018-12-13 12:00 | Emergency (ER) | payer OTHER, SELFPAY ==
[2018-12-11 09:42] VITALS: BMI 46.5
[2018-12-13 12:01] VITALS: BP 162/101; PULSE 86; RESP 17; TEMP 36.7; O2SAT 97; BMI 45.3
--- NOTE | 2018-12-13 12:24 | ED.VISSUMM ---
- ER Visit Summary Date of Service: 12/13/18 Chief Complaint: Head injury History of Present Illness: The patient is a 38 F who presents with a head injury. 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 She had no LOC. She complains of no neck pain. Touching it makes it worse. She took ibuprofen and Tylenol before the incident. She did feel little bit dizzy while walking here. She has a history of a concussion but she states it feels different than that. Denies nausea or vomiting. Physical Examination: Vital signs reviewed. HEENT exam reveals left frontal tenderness to palpation of the head. There is no neck tenderness. Heart is regular rate and rhythm. Lungs clear. Abdomen soft. GCS 15. Neurologic exam normal. Test Results: None performed Emergency Department Course and Treatment: Patient has a small scalp contusion. I do not feel any imaging is necessary. Her neurologic exam is normal. Patient will be given naproxen here. She will continue NSAIDs at home. She will also use ice. She will follow-up with [facility] care Treatment Plan: [] Disposition: Discharge Impression: Scalp contusion This note was generated with [employer] dictation software. It may contain incorrect words, spelling, and punctuation that were not noted in review of the chart prior to signing ED Disposition - Plan for ED Patient: Referrals: Zeferino Leon MD [Primary Care Provider] -
--- NOTE | 2018-12-13 12:26 | ED.DEP ---
ED Disposition - Plan for ED Patient: Disposition: Home or Assisted Living Instructions: ED Head Injury Closed Referrals: Zeferino Leon MD [Primary Care Provider] -
[2018-12-13] MEDS: Naproxen 500 MG Tablet PO (12:40)
[2018-12-13 12:50] VITALS: PULSE 78; RESP 16; O2SAT 98
== END 2018-12-13 12:52 | disposition home or self-care (01) ==
LOC: ED 12:46
PROVIDERS: Emergency Provider Emergency Medicine; Family Provider Family Medicine; PCP Family Medicine
DX: S00.03XA Contusion of scalp, initial encounter (principal); W22.09XA Striking against other stationary object, initial encounter; Y93.H3 Activity, building and construction; Y92.230 Patient room in hospital as the place of occurrence of the external cause; Y99.0 Civilian activity done for income or pay; E11.9 Type 2 diabetes mellitus without complications
CPT/HCPCS: 99282

== ENCOUNTER 2018-12-14 17:28 | Emergency (ER) | payer OTHER, SELFPAY ==
[2018-12-13 12:01] VITALS: BMI 45.3
[2018-12-14 17:29] VITALS: BP 161/103; PULSE 81; RESP 14; TEMP 36.8; O2SAT 97; BMI 45.9
--- NOTE | 2018-12-14 18:50 | CT_ITS ---
STUDY: CT BRAIN WITHOUT CONTRAST REASON FOR EXAM: Female, 38 years old. Head injury. Headaches RADIATION DOSAGE (If Supplied By Facility): CTDIvol = ( 44.99 ) mGy, DLP = ( 762.36 ) mGycm TECHNIQUE: Transaxial CT imaging of the brain was performed without administration of intravenous contrast material. Individualized dose optimization techniques were used for this CT. COMPARISON: None. FINDINGS: Normal soft tissue structures. Normal calvarium. Normal size ventricles and extra-axial spaces for the patient's age. Normal white matter tracts of the cerebral hemispheres. Normal basal ganglia and thalami. Normal brainstem. Normal cerebellum. There is no intracranial hemorrhage. There are no findings of an acute ischemic infarction. Chronic inflammatory changes in the right maxillary sinus CT/Brain/Head without Contrast IMPRESSION: Normal unenhanced CT scan of the brain. No acute findings in the brain Electronically Signed: Rob Martinez MD at 20:12 EST Tel , Service support ,
[2018-12-14] MEDS: 0.9% Normal Saline 1,000 ML 999 ML IV (18:59)
[2018-12-14] MEDS: Metoclopramide 10 MG/2 ML Vial IV (19:00)
[2018-12-14] MEDS: DiphenhydrAMINE 50 MG/ML Syringe 25 MG IV (19:00)
[2018-12-14] MEDS: Ketorolac 30 MG/ML Syringe IV (19:00)
--- NOTE | 2018-12-14 20:41 | ED.VISSUMM ---
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 She was seen in the ER yesterday for a scalp contusion after hitting her head on a piece of equipment while cleaning. Patient states she has worsening headache and now states this is the worst headache that she has ever had. She feels dizzy and nauseous. She has the right side of her face feels somewhat numb. She tried ibuprofen, naproxen, and Excedrin. She does have some light sensitivity and nausea more consistent with migraine today. Physical Examination: Blood pressure is 161/103, otherwise vitals normal. Head neck examination reveals left frontal scalp tenderness with no laceration or focal swelling. No C-spine tenderness. Heart is regular rate and rhythm. Lungs sounds clear. Abdomen is soft nontender. Neuro exam reveals good strength and sensation throughout on testing. Test Results: CT of the head is obtained and unremarkable. Emergency Department Course and Treatment: Patient is given Toradol, Reglan, Benadryl, and IV fluids. On repeat evaluation she reports mild improvement. She be given Zofran for home. She is to continue Tylenol or ibuprofen. We discussed closed head injuries and concussions. Treatment Plan: [] Disposition: Discharge Impression: Closed head injury This note was generated with [employer]ello dictation software. It may contain incorrect words, spelling, and punctuation that were not noted in review of the chart prior to signing ED Disposition - Plan for ED Patient: Disposition: Home or Assisted Living Instructions: ED Head Injury Closed Prescriptions: Ondansetron [Zofran Odt] 4 mg PO Q8H PRN PRN #10 tablet PRN Reason: Nausea Referrals: [facility] [GROUP OF PHYSICIANS] - 2 Days Zeferino Leon MD [Primary Care Provider] -
--- NOTE | 2018-12-14 20:42 | ED.DEP ---
ED Disposition - Plan for ED Patient: Disposition: Home or Assisted Living Instructions: ED Head Injury Closed Prescriptions: Ondansetron [Zofran Odt] 4 mg PO Q8H PRN PRN #10 tablet PRN Reason: Nausea Referrals: Zeferino Leon MD [Primary Care Provider] - [facility] [GROUP OF PHYSICIANS] - 2 Days
[2018-12-14 21:08] VITALS: BP 167/77; PULSE 67; RESP 16
[2018-12-14] MEDS: Ondansetron ODT 4 MG Tablet PO (21:08)
== END 2018-12-14 21:10 | disposition home or self-care (01) ==
PROVIDERS: Emergency Provider Emergency Medicine; Family Provider Family Medicine; PCP Family Medicine
DX: S09.90XD Unspecified injury of head, subsequent encounter (principal); W22.09XD Striking against other stationary object, subsequent encounter
CPT/HCPCS: 70450; 96361; 96374; 96375; 99282; J7030

== ENCOUNTER 2019-02-14 08:02 | Inpatient (IN) | payer OTHER, SELFPAY ==
[2019-02-07 11:06] VITALS: BMI 45.9
[2019-02-14 08:04] VITALS: BP 100/53; PULSE 99; RESP 17; TEMP 37.3; O2SAT 96; BMI 44.4
[2019-02-14 08:37] LABS: Mucous, Urine 0 SEEN /hpf (<or=2+); Red Blood Cells-Urine 0 SEEN /hpf (0-5)
[2019-02-14] MEDS: 0.9% Normal Saline 1,000 ML 1000 ML IV (08:54)
[2019-02-14 09:00] LABS: Glucose, Dipstick Normal (Normal); Ketone-Dipstick Negative (Negative); Leukocyte Esterase-Dipstick Negative /ul (Negative); Nitrite-Dipstick Positive (Negative); Occult Blood-Urine 10 /ul (Negative); Protein-Dipstick 100 mg/dl (Negative); Specific Gravity, Urine 1.025 (1.002-1.030); Urine Clarity Cloudy (Clear); Urine Urobilinogen 8 mg/dl (Normal)
[2019-02-14 09:04] LABS: Urine Bilirubin Dipstick 6 mg/dL (Negative)
[2019-02-14 09:05] LABS: Color, Urine ORANGE (Yellow)
[2019-02-14 09:06] VITALS: BP 101/57; BP 92/55; BP 97/60; PULSE 100; PULSE 80; PULSE 87
[2019-02-14 09:12] LABS: Amorphous Sediment 2+; Bacteria 1+ /hpf (None Seen); Squamous Epithelial Cells - UA 5-10 SEEN /hpf (5-10); White Blood Cells 0-5 SEEN /hpf (0-5)
[2019-02-14 09:14] LABS: Absolute Lymphocyte Count 0.62 X10^3/ul (0.83-4.51); Absolute Neutrophil Count 9.7 X10^3/uL (2.0-7.7); Basophil# 0.01 X10^3/uL; Basophil% 0.1 % (0-1); Eosinophil# 0.06 X10^3/uL; Eosinophils% 0.5 % (0-5); Hematocrit 37.7 % (37-47); Hemoglobin 12.9 g/dl (12.0-15.0); Lymphocyte # 0.62 X10^3/ul (4.0); Lymphocyte % 5.7 % (19-41); Mean Corp Hgb Conc 34.2 g/gl (32-36); Mean Corpuscular Hgb 31.6 pg (27.0-32.0); Mean Corpuscular Volume 92.4 fL (81-99); Mean Platelet Vol. 9.8 fl (6.2-12.0); Monocyte# 0.46 X10^3/uL; Monocyte% 4.2 % (0-10); Neutrophil # 9.69 X10^3/uL (2.7-7.7); Neutrophil % 88.4 % (47-70); Platelet Count 127 K/mm3 (150-450); RBC Distribution Width SD 43.5 fl (35.1-43.9); Red Blood Count 4.08 M/mm3 (4.2-5.4)
[2019-02-14 09:15] LABS: Differential Indicated SCAN CRITERIA MET; POSITIVE COUNT NO; POSITIVE DIFFERENTIAL NO; POSITIVE MORPHOLOGY YES
[2019-02-14 09:21] LABS: Anion Gap 12 (5-15); BUN 29 mg/dL (7-18); BUN/Creat Ratio 15.8 RATIO (10-20); Calcium,Total 8.2 mg/dL (8.5-10.1); Chloride 97 mmol/L (98-107); Creatinine, Serum 1.83 mg/dL (0.55-1.02); EST Glomerular Filtration Rate 33 mL/min (>60); Est Glom Filt Rate - Afr Amer 40 mL/min (>60); Estimated Creatinine Clearance 41.33 ml/min; Glucose 203 mg/dL (74-106); Potassium 3.7 mmol/L (3.5-5.1); Sodium Level 131 mmol/L (136-145)
[2019-02-14] MEDS: Ceftriaxone 1 GM/50 ML BAG IV (09:24)
--- NOTE | 2019-02-14 09:28 | CT_ITS ---
STUDY: CT ABDOMEN AND PELVIS WITHOUT CONTRAST REASON FOR EXAM: Female, 38 years old. Urinary frequency, back pain RADIATION DOSAGE (If Supplied By Facility): CTDIvol = ( 24.18 ) mGy, DLP = ( 1395.45 ) mGycm TECHNIQUE: Transaxial images were obtained from the dome of the diaphragm to the symphysis pubis without oral contrast, and without intravenous contrast. Sagittal and coronal images were reconstructed. Individualized dose optimization techniques were used for this CT. COMPARISON: None. FINDINGS: The visualized lung bases are unremarkable. The visualized portions of the heart are within normal limits. There is decreased attenuation of the liver consistent with steatosis. Gallbladder appears to be surgically absent. Normal spleen. Normal pancreas. Normal bilateral adrenal glands. Normal right kidney. Trace left hydronephrosis with moderate perinephric stranding/edema. There is a 4 mm calculus at the left UPJ on axial image 104 (at inferior L3 endplate level). Normal visualized stomach. Normal small intestine. Normal colon. The appendix is visualized and appears normal. Normal abdominal aorta. Normal inferior vena cava. Normal retroperitoneum. Normal urinary bladder. Normal abdominal wall. Normal osseous structures. CT/Abdomen/Pelvis without Cont IMPRESSION: 1. 4 mm left UVJ calculus with mild hydronephrosis and perinephric edema suggesting component of obstruction. 2. Hepatic steatosis. 3. Apparent cholecystectomy Electronically Signed: Luis Fernando Coleman MD at 10:13 EDT , Service support ,
[2019-02-14 09:39] LABS: Pregnancy, Serum, hCG Quali. NEGATIVE Negative (0-9 Nonpreg)
[2019-02-14 09:42] LABS: Differential Comment SCANNED
[2019-02-14 10:07] VITALS: PULSE 85; RESP 14
--- NOTE | 2019-02-14 10:20 | ED.VISSUMM ---
- ER Visit Summary Date of Service: 02/14/19 Chief Complaint: [Not feeling well presents the emergency department with about 4-day history of not feeling well. Patient states that] History of Present Illness: The patient is a 38 F [2 days ago she had some dysuria and some frequency but that seems to have resolved after taking some Azo at home. Patient states that she is been having sweats and chills. Patient also with some intermittent pain in her back. Patient states she got up to use the restroom at 3 AM and felt very dizzy and felt like things were spinning around and round. Patient states the dizziness worse with standing. She denies any falls or head injuries. 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 At that time she had an allergic reaction to the steroid used.] Physical Examination: [HEENT-PERRLA, EOMI. Cranial nerves II through XII grossly intact. TMs clear. Mucous membranes moist. No adenopathy. Cardiovascular-regular rate and rhythm without murmur or ectopy Lungs-clear to auscultation, chest wall stable without crepitus or subcu emphysema Abdomen-normoactive bowel sounds, soft, nontender, no rebound or rigidity, no peritoneal signs. Mild left-sided CVA tenderness. Extremities-intact ?4, normal range of motion, normal pulses, atraumatic] Test Results: [CBC with differential obtained showed a white count 11.0, hemoglobin 13, hematocrit 38, platelets 127. Chemistries unremarkable. BUN was 29 and creatinine 1.83. Urinalysis was positive for nitrites as well as 0-5 WBCs and +1 bacteria. Because of the acute kidney injury a CT scan of the abdomen pelvis without contrast was obtained which did show a 4 mm stone at the left proximal ureter with signs of obstruction. Orthostatic vital signs were negative.] Emergency Department Course and Treatment: [Patient was medicated with Zofran. She was not requiring any pain meds. Patient was given a liter normal same fluid bolus.] Treatment Plan: [Admit] Disposition: [Admit] Impression: [Left ureterolithiasis UTI Acute kidney injury] This note was generated with IntelePeer dictation software. It may contain incorrect words, spelling, and punctuation that were not noted in review of the chart prior to signing ED Disposition - Plan for ED Patient: Referrals: Zeferino Leon MD [Primary Care Provider] -
--- NOTE | 2019-02-14 10:25 | ED.DCSUM_ITS ---
- ER Visit Summary Date of Service: 02/14/19 Chief Complaint: [Not feeling well presents the emergency department with about 4-day history of not feeling well. Patient states that] History of Present Illness: The patient is a 38 F [2 days ago she had some dysuria and some frequency but that seems to have resolved after taking some Azo at home. Patient states that she is been having sweats and chills. Patient also with some intermittent pain in her back. Patient states she got up to use the restroom at 3 AM and felt very dizzy and felt like things were spinning around and round. Patient states the dizziness worse with standing. She denies any falls or head injuries. 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 At that time she had an allergic reaction to the steroid used.] Physical Examination: [HEENT-PERRLA, EOMI. Cranial nerves II through XII grossly intact. TMs clear. Mucous membranes moist. No adenopathy. Cardiovascular-regular rate and rhythm without murmur or ectopy Lungs-clear to auscultation, chest wall stable without crepitus or subcu emphysema Abdomen-normoactive bowel sounds, soft, nontender, no rebound or rigidity, no peritoneal signs. Mild left-sided CVA tenderness. Extremities-intact ?4, normal range of motion, normal pulses, atraumatic] Test Results: [CBC with differential obtained showed a white count 11.0, hemoglobin 13, hematocrit 38, platelets 127. Chemistries unremarkable. BUN was 29 and creatinine 1.83. Urinalysis was positive for nitrites as well as 0-5 WBCs and +1 bacteria. Because of the acute kidney injury a CT scan of the abdomen pelvis without contrast was obtained which did show a 4 mm stone at the left proximal ureter with signs of obstruction. Orthostatic vital signs were negative.] Emergency Department Course and Treatment: [Patient was medicated with Zofran. She was not requiring any pain meds. Patient was given a liter normal same fluid bolus.] Treatment Plan: [Admit] Disposition: [Admit] Impression: [Left ureterolithiasis UTI Acute kidney injury] This note was generated with iQiyi dictation software. It may contain incorrect words, spelling, and punctuation that were not noted in review of the chart prior to signing ED Disposition - Plan for ED Patient: Referrals: Zeferino Leon MD [Primary Care Provider] -
[2019-02-14] MEDS: Ondansetron 4 MG/2 ML Vial IV (10:58)
[2019-02-14 11:38] VITALS: BMI 44.6; BMI 44.7
[2019-02-14 11:41] VITALS: BP 112/61; PULSE 66; RESP 16; TEMP 36.6; O2SAT 99
--- NOTE | 2019-02-14 12:06 | HP.PCM_ITS ---
Problem List (1) Type 2 diabetes mellitus Status: Chronic (2) Hypertension Status: Chronic Qualifiers: Hypertension type: essential hypertension Qualified Code(s): I10 - Essential (primary) hypertension (3) Obesity Status: Chronic Qualifiers: Obesity type: due to excess calories (4) Nephrolithiasis Status: Acute (5) Pyelonephritis Status: Acute (6) Acute kidney injury Status: Acute (7) Dehydration Status: Acute (8) Lumbosacral spondylosis Status: Chronic (9) Lumbar facet arthropathy Status: Chronic (10) Degeneration of intervertebral disc of lumbosacral region Status: Chronic History of Present Illness Date of Admission: 02/14/19 Chief Complaint: Dysuria, nausea, left flank pain and abdominal pain The patient is a 38 year old F with a past medical history of diabetes mellitus type 2 diagnosed in June 2008, hypertension, obesity, chronic back pain and anxiety/depression who presented to the emergency department at [facility] on 02/14/2019 complaining of shortness of breath, lightheadedness, left flank pain, abdominal pain and dysuria. She additionally complained of profuse sweating and shaking chills. Vital signs of presentation to the emergency room were temperature 99.1, blood pressure 100/53, pulse 99, respiratory rate 17 and she was 96-99% saturated on room air. Significant lab included a white blood cell count of 11 with 88% neutrophils. Hemoglobin was normal at 12.9 and platelets were low at 127,000. Sodium was decreased at 131 with a chloride of 97. Potassium was 3.7. BUN was increased at 29 and the creatinine was increased at 1.83 creatinine on December 11 was 0.55. Lactic acid and hemoglobin A1c are pending. Random blood sugar was 203. UA showed an increased specific gravity 1.025 and was nitrite positive (She has taken Azo). UA had 0-5 WBCs with 1+ bacteria. Noncontrasted CT scan of the abdomen and pelvis showed a 4 mm left with mild hydronephrosis and perinephric edema ureterovesical junction calculus. There was hepato-steatosis. She was given 1 g of IV Rocephin in the emergency department and this will be continued. She was admitted to the hospital and intravenous fluids and pain control were initiated. Will recheck lab in a.m. The stone is small and she has left lower quadrant/pelvic pain so I suspect it will pass. Will need to consult urology if it does not. Past Medical History Past Medical History (Chronic Problems): Chronic Problems (Last Reviewed 02/14/19 @ 12:14 by Krystle Magallon DO) Type 2 diabetes mellitus (Chronic) Hypertension (Chronic) Obesity (Chronic) Lumbosacral spondylosis (Chronic) Lumbar facet arthropathy (Chronic) Left upper quadrant abdominal pain (Chronic) Segmental and somatic dysfunction of pelvic region (Chronic) Segmental and somatic dysfunction of thoracic region (Chronic) Radiculopathy of lumbosacral region (Chronic) Disc displacement, lumbar (Chronic) Degeneration of intervertebral disc of lumbosacral region (Chronic) Medical History: Medical History (Last Reviewed 02/14/19 @ 12:14 by Krystle Magallon DO) gall bladder removal Allergies STEROIDS Allergy (Uncoded 02/14/19 08:04) Hives Home Medications: Ambulatory Orders Medication Instructions Recorded Lorazepam [Ativan] 0.5 mg PO DAILY PRN PRN 10/27/13 Albuterol Inhaler [Ventolin Hfa] 1 - 2 puff INHALATION Q6H PRN PRN 10/27/15 Tizanidine HCl [Zanaflex] 4 mg PO DAILY PRN PRN 04/29/17 Erenumab-Aooe [Aimovig 140 mg IM QMONTH 07/22/18 Autoinjector] Ibuprofen 400 mg PO PRN PRN 07/22/18 Metformin HCl [Metformin HCl ER] 500 mg PO BID 07/22/18 Paroxetine [Paxil] 10 mg PO DAILY 07/22/18 Meclizine HCl 25 mg PO TID PRN #20 tab 07/23/18 Lisinopril [Zestril] 5 mg PO DAILY 02/14/19 buPROPion XL [Wellbutrin Xl] 150 mg PO DAILY 02/14/19 Surgical History: Surgical History (Last Reviewed 02/07/19 @ 10:58 by Karol Montoya) H/O: Z98.891 Surgical History: cholecystectomy Psychiatric History: Anxiety, Depression 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 Review of Systems Constitutional: Reports: Chills, Night Sweats, Malaise. Denies: Fever, Weight Change Eyes: Denies: Blurred vision HEENT: Denies: Head Aches, Sinus Congestion, Sinus Drainage, Sore Throat Cardiovascular: Reports: Light Headedness. Denies: Chest Pain, Palpitations Respiratory: Reports: Shortness of breath upon exertion. Denies: Cough, Shortness of breath at rest, Sputum production Gastrointestinal: Reports: Abdominal Pain, Nausea. Denies: Diarrhea, Vomiting Genitourinary: Reports: Dysuria, Frequency Gynecological: Denies: Vaginal discharge Musculoskeletal: Reports: Back Pain. Denies: Joint Pain, Joint Tenderness Skin: Denies: Jaundice, Rash, Wounds Neurological: Denies: Numbness, Tingling, Focal weakness Psychiatric: Denies: Anxiety, Depression, Homicidal Ideations, Suicidal Ideations Endocrine: Denies: Hx of Thyroiditis Hematologic/ Lymphatic: Denies: Easy Bruising, Easy Bleeding, Hx of blood clot VTE Information - Inpt Only VTE Present on Admission: No VTE Mechan Device Prophylaxis: None VTE Pharm Prophylaxis ordered?: Yes Reason prophylaxis not ordered:: Treatment Not Indicated - Patient is ambulatory. Patient Problems: Active and Suspected Problems (Last Reviewed 02/14/19 @ 12:14 by Krystle Magallon DO) Nephrolithiasis (Acute) Pyelonephritis (Acute) Acute kidney injury (Acute) Dehydration (Acute) - Physical Exam General: Alert, Oriented x3, Cooperative, Well developed, Well nourished, - - Looks as though she does not feel well HEENT: Atraumatic, PERRLA, EOMI, Normocephalic Oral: Dry Mucosa Neck: Supple, Negative Carotid Bruits, No Nuchal Rigidity, Trachea Midline Lungs: Clear to auscultation, Diminished - Likely due to body habitus Cardiovascular: Regular rate, Regular Rhythm, Normal S1, Normal S2, No murmurs, No Ectopic Activity, No rub noted, No Gallop Abdomen: Soft, Non-Distended, Hypoactive Bowel Sounds, Obese, Tender - Tender in the left lower quadrant and radiating into the pelvis but no guarding with palpation. Extremities: No clubbing, No cyanosis, No edema, Capillary Refill Less than 3 Seconds, No Calf Tenderness, Peripheral Pulses Normal Skin: No rashes, No breakdown Musculoskeletal: No Tenderness to Palpation of Joints or Extremities, No Muscle Wasting Neurological: Cranial nerves II-XII grossly intact, Neuro grossly intact Psych/Mental Status: Normal Affect, Appropriate Vital Signs Temp Pulse Resp BP Pulse Ox 97.8 F 66 16 112/61 99 02/14/19 11:41 02/14/19 11:41 02/14/19 11:41 02/14/19 11:41 02/14/19 11:41 Oxygen Delivery Method Room Air Weight: 284 lb 9.868 oz Body Mass Index (BMI) 44.6 Finger Stick Blood Glucose 98 Laboratory Tests Past 24 Hrs 02/14/19 02/14/19 02/14/19 08:30 08:55 08:55 WBC 11.0 RBC 4.08 L Hgb 12.9 Hct 37.7 MCV 92.4 MCH 31.6 MCHC 34.2 RDW 13.0 RDW Differential 43.5 Plt Count 127 L MPV 9.8 Immature Gran % (Auto) 1.100 H Neut % (Auto) 88.4 H Lymph % (Auto) 5.7 L Menard % (Auto) 4.2 Eos % (Auto) 0.5 Baso % (Auto) 0.1 Absolute Neuts (auto) 9.7 H Absolute Lymphs (auto) 0.62 L Total Counted Not Reportable Differential Comment SCANNED ESR Sodium 131 L Potassium 3.7 Chloride 97 L Carbon Dioxide 22.0 Anion Gap 12 BUN 29 H Creatinine 1.83 H Estim Creat Clear Calc 41.33 Est GFR (MDRD) Af Amer 40 L Est GFR (MDRD) Non-Af 33 L BUN/Creatinine Ratio 15.8 Glucose 203 H Hemoglobin A1c Lactic Acid Calcium 8.2 L Serum , Qual Urine Color ORANGE Urine Clarity Cloudy Urine pH 5.0 Ur Specific [place] 1.025 Urine Protein 100 H Urine Glucose (UA) Normal Urine Ketones Negative Urine Occult Blood 10 H Urine Nitrite Positive H Urine Bilirubin 6 H Urine Urobilinogen 8 H Ur Leukocyte Esterase Negative Urine RBC 0 SEEN Urine WBC 0-5 SEEN Ur Squamous Epith Cells 5-10 SEEN Amorphous Sediment 2+ Urine Bacteria 1+ Urine Mucus 0 SEEN 02/14/19 02/14/19 02/14/19 08:55 11:45 11:45 WBC RBC Hgb Hct MCV MCH MCHC RDW RDW Differential Plt Count MPV Immature Gran % (Auto) Neut % (Auto) Lymph % (Auto) [place] % (Auto) Eos % (Auto) Baso % (Auto) Absolute Neuts (auto) Absolute Lymphs (auto) Total Counted Differential Comment ESR Pending Sodium Potassium Chloride Carbon Dioxide Anion Gap BUN Creatinine Estim Creat Clear Calc Est GFR (MDRD) Af Amer Est GFR (MDRD) Non-Af BUN/Creatinine Ratio Glucose Hemoglobin A1c Pending Lactic Acid Calcium Serum , Qual NEGATIVE Urine Color Urine Clarity Urine pH Ur Specific [place] Urine Protein Urine Glucose (UA) Urine Ketones Urine Occult Blood Urine Nitrite Urine Bilirubin Urine Urobilinogen Ur Leukocyte Esterase Urine RBC Urine WBC Ur Squamous Epith Cells Amorphous Sediment Urine Bacteria Urine Mucus 02/14/19 11:45 WBC RBC Hgb Hct MCV MCH MCHC RDW RDW Differential Plt Count MPV Immature Gran % (Auto) Neut % (Auto) Lymph % (Auto) [place] % (Auto) Eos % (Auto) Baso % (Auto) Absolute Neuts (auto) Absolute Lymphs (auto) Total Counted Differential Comment ESR Sodium Potassium Chloride Carbon Dioxide Anion Gap BUN Creatinine Estim Creat Clear Calc Est GFR (MDRD) Af Amer Est GFR (MDRD) Non-Af BUN/Creatinine Ratio Glucose Hemoglobin A1c Lactic Acid Pending Calcium Serum , Qual Urine Color Urine Clarity Urine pH Ur Specific [place] Urine Protein Urine Glucose (UA) Urine Ketones Urine Occult Blood Urine Nitrite Urine Bilirubin Urine Urobilinogen Ur Leukocyte Esterase Urine RBC Urine WBC Ur Squamous Epith Cells Amorphous Sediment Urine Bacteria Urine Mucus Assessment/Plan All Active Problems (Last Reviewed 02/14/19 @ 12:14 by Krystle Magallon DO) Nephrolithiasis (Acute) Pyelonephritis (Acute) Acute kidney injury (Acute) Dehydration (Acute) Segmental and somatic dysfunction of lumbar region (Acute) Vertigo (Acute) Near syncope (Acute) Dysuria (Resolved) Urinary tract infection (Resolved) Impressions 1. Pyelonephritis with mild left hydronephrosis secondary to nephrolithiasis with 4 mm calculus at the ureteropelvic junction on the left 2. Nephrolithiasis 3. Hydronephrosis on the left 4. Diabetes mellitus type 2 5. Hypertension 6. Morbid obesity 7. Hepato-steatosis Urine and blood cultures X 2 Straight cathed for urine and send to microbiology for culture Hydrate Bladder scan for urine residual-the first urine residual was 46. Recheck the lab in the AM Continue Rocephin that was started in the emergency department Lactic acid and blood cultures now Hopefully the calculus will pass with hydration but if not will need a urology consult Code Visit Inpatient E&M: 97889 Init Hosp L3
[2019-02-14 12:12] LABS: Erythrocyte Sedimentation Rate 81 mm/hr (0-20)
[2019-02-14 12:25] LABS: Hemoglobin A1c 7.2 % (4.2-6.3)
[2019-02-14 12:32] LABS: Urine Sodium 13 mmol/L (Not Establ.)
[2019-02-14] MEDS: 0.9% Normal Saline 1,000 ML 150 ML IV ×3 (12:38→23:57)
[2019-02-14 12:39] LABS: Lactic Acid 1.3 mmol/L (0.4-2.0)
[2019-02-14 12:41] LABS: Bedside Glucose 174 mg/dL (70-110)
[2019-02-14] MEDS: Insulin Lispro 100 UNIT/ML INSULN.PEN SQ ×2 (12:49→21:10)
[2019-02-14 16:52] VITALS: BP 118/41; PULSE 87; RESP 16; TEMP 38.1; O2SAT 98
[2019-02-14 17:05] LABS: Bedside Glucose 141 mg/dL (70-110)
[2019-02-14] MEDS: Ibuprofen 400 MG Tablet PO (17:09)
[2019-02-14] MEDS: Mag Hydrox/Al Hydrox/Simeth 30 ML UDC PO (17:11)
[2019-02-14] MEDS: oxyCODONE 5 MG Tablet PO (19:14)
[2019-02-14] MEDS: Acetaminophen 325 MG Tablet 650 MG PO (19:14)
[2019-02-14 21:21] LABS: Bedside Glucose 200 mg/dL (70-110)
[2019-02-14 22:00] VITALS: BP 108/59; PULSE 73; RESP 18; TEMP 36.6; O2SAT 96
[2019-02-15 04:00] VITALS: BP 122/70; PULSE 73; RESP 18; TEMP 36.6; O2SAT 98
[2019-02-15] MEDS: 0.9% Normal Saline 1,000 ML 150 ML IV ×3 (04:32→19:24)
[2019-02-15] MEDS: oxyCODONE 5 MG Tablet PO ×4 (05:37→22:11)
[2019-02-15] MEDS: Acetaminophen 325 MG Tablet 650 MG PO (05:38)
[2019-02-15 06:29] LABS: Absolute Lymphocyte Count 0.49 X10^3/ul (0.83-4.51); Absolute Neutrophil Count 4.3 X10^3/uL (2.0-7.7); Eosinophil# 0.07 X10^3/uL; Eosinophils% 1.3 % (0-5); Hematocrit 33.8 % (37-47); Hemoglobin 11.4 g/dl (12.0-15.0); Lymphocyte # 0.49 X10^3/ul (4.0); Lymphocyte % 9.3 % (19-41); Mean Corp Hgb Conc 33.7 g/gl (32-36); Mean Corpuscular Hgb 31.8 pg (27.0-32.0); Mean Corpuscular Volume 94.4 fL (81-99); Mean Platelet Vol. 10.1 fl (6.2-12.0); Monocyte# 0.37 X10^3/uL; Neutrophil # 4.31 X10^3/uL (2.7-7.7); Neutrophil % 81.6 % (47-70); Platelet Count 104 K/mm3 (150-450); RBC Distribution Width CV 13.2 % (11.6-14.6); Red Blood Count 3.58 M/mm3 (4.2-5.4); White Blood Count 5.3 K/mm3 (4.4-11.0)
[2019-02-15 06:39] LABS: Differential Indicated SCAN CRITERIA MET; POSITIVE COUNT NO; POSITIVE DIFFERENTIAL YES; POSITIVE MORPHOLOGY YES
[2019-02-15 06:52] LABS: ALB/GLOB Ratio 0.6 RATIO (0.9-2.4); AST(SGOT) 24 U/L (15-37); Alanine Aminotransfer ALT/SGPT 40 U/L (13-56); Albumin, Serum 2.4 g/dL (3.2-5.0); Alkaline Phosphatase 74 U/L (45-117); Anion Gap 5 (5-15); BUN 18 mg/dL (7-18); BUN/Creat Ratio 17.6 RATIO (10-20); Calcium,Total 7.7 mg/dL (8.5-10.1); Chloride 104 mmol/L (98-107); Cholesterol 162 mg/dL (200); Creatinine, Serum 1.02 mg/dL (0.55-1.02); EST Glomerular Filtration Rate 65 mL/min (>60); Est Glom Filt Rate - Afr Amer 79 mL/min (>60); Estimated Creatinine Clearance 71.38 ml/min; Globulin 4.3 g/dL (2.2-4.2); Glucose 184 mg/dL (74-106); High Density Lipoprotein 11 mg/dL; Phosphorus 1.8 mg/dL (2.5-4.9); Potassium 4.1 mmol/L (3.5-5.1); Protein, Total 6.7 g/dL (6.4-8.2); Sodium Level 135 mmol/L (136-145); Triglycerides 405 mg/dL
[2019-02-15 07:05] LABS: Bedside Glucose 173 mg/dL (70-110)
[2019-02-15 07:08] LABS: Differential Comment SCANNED
[2019-02-15 07:44] VITALS: BP 134/78; PULSE 77; RESP 16; TEMP 36.6; O2SAT 96
[2019-02-15] MEDS: Insulin Lispro 100 UNIT/ML INSULN.PEN SQ ×4 (07:48→20:50)
[2019-02-15] MEDS: PARoxetine 10 MG Tablet PO (07:48)
[2019-02-15] MEDS: Lisinopril 5 MG Tablet PO (07:48)
[2019-02-15] MEDS: Ibuprofen 400 MG Tablet PO ×3 (10:30→22:11)
[2019-02-15] MEDS: Ceftriaxone 1 GM/50 ML BAG IV (10:30)
[2019-02-15] MEDS: Ondansetron 4 MG/2 ML Vial IV (10:30)
--- NOTE | 2019-02-15 11:06 | PCM.PROGNOTE ---
Patient Problems: Active and Suspected Problems (Last Reviewed 02/14/19 @ 12:14 by Krystle Magallon DO) Nephrolithiasis (Acute) Pyelonephritis (Acute) Acute kidney injury (Acute) Dehydration (Acute) Subjective: All events of the past 24 hours of been reviewed. Day #2 antibiotics-Rocephin T-max 100.5 ?F. Current temp is 97.8. Vital signs are stable. She is 96-98% saturated on room air Excellent urine output. All lab was personally reviewed: White blood cell count is down to 5.3 today with 82% neutrophils. Platelets are decreased at 104,000 and the hemoglobin is 11.4 following hydration. Sodium is up to 135 from 131. Creatinine has improved and is 1.02, down from 1.83. Phosphorus is low at 1.8 and the magnesium is 2.0. Triglycerides are 405. HDL is 11. Blood sugars are controlled. Objective: PHYSICAL EXAM: GENERAL: alert, oriented X 3, Cooperative, NAD, her face is flushed ORAL: moist mucosa, no mucosal lesions NECK: No JVD, supple, trachea midline LUNGS: CTA, symmetric chest expansion HEART: RRR, Normal S1 and S2, no rub, no gallop Telemetry: Normal sinus rhythm ABDOMEN: soft, Tender in the LLQ.....very localized with no guarding, ND, BS present, no guarding with palpation EXTREMITIES: no edema, no cyanosis, no calf tenderness SKIN: No rashes, no breakdown NEUROLOGIC: no focal neurologic deficits PSYCH: appropriate, normal affect, pleasant - Physical Exam Vital Signs Temp Pulse Resp BP Pulse Ox 97.8 F 77 16 134/78 H 96 02/15/19 07:44 02/15/19 07:44 02/15/19 07:44 02/15/19 07:44 02/15/19 07:44 Oxygen Delivery Method Room Air Weight: 284 lb 9.868 oz Body Mass Index (BMI) 44.6 Finger Stick Blood Glucose 98 Intake and Output for Last 24 Hours 02/13/19 02/14/19 02/15/19 23:59 23:59 23:59 Intake Total 1303 / 1303 2881 / 2881 Output Total 800 / 800 2600 / 2600 Balance 503 / 503 281 / 281 Laboratory Tests Past 24 Hrs 02/14/19 02/14/19 02/14/19 08:30 08:30 11:45 WBC RBC Hgb Hct MCV MCH MCHC RDW RDW Differential Plt Count MPV Immature Gran % (Auto) Neut % (Auto) Lymph % (Auto) [place] % (Auto) Eos % (Auto) Baso % (Auto) Absolute Neuts (auto) Absolute Lymphs (auto) Total Counted Differential Comment ESR 81 H Sodium Potassium Chloride Carbon Dioxide Anion Gap BUN Creatinine Estim Creat Clear Calc Est GFR (MDRD) Af Amer Est GFR (MDRD) Non-Af BUN/Creatinine Ratio Glucose Hemoglobin A1c Lactic Acid Calcium Phosphorus Magnesium Total Bilirubin AST ALT Alkaline Phosphatase Total Protein Albumin Globulin Albumin/Globulin Ratio Triglycerides Cholesterol LDL Cholesterol VLDL Cholesterol HDL Cholesterol Ur Random Sodium 13 Urine Creatinine 313.00 02/14/19 02/14/19 02/15/19 11:45 11:45 05:50 WBC 5.3 RBC 3.58 L Hgb 11.4 L Hct 33.8 L MCV 94.4 MCH 31.8 MCHC 33.7 RDW 13.2 RDW Differential 44.0 H Plt Count 104 L MPV 10.1 Immature Gran % (Auto) 0.800 Neut % (Auto) 81.6 H Lymph % (Auto) 9.3 L Fulton % (Auto) 7.0 Eos % (Auto) 1.3 Baso % (Auto) 0.0 Absolute Neuts (auto) 4.3 Absolute Lymphs (auto) 0.49 L Total Counted Not Reportable Differential Comment SCANNED ESR Sodium Potassium Chloride Carbon Dioxide Anion Gap BUN Creatinine Estim Creat Clear Calc Est GFR (MDRD) Af Amer Est GFR (MDRD) Non-Af BUN/Creatinine Ratio Glucose Hemoglobin A1c 7.2 H Lactic Acid 1.3 Calcium Phosphorus Magnesium Total Bilirubin AST ALT Alkaline Phosphatase Total Protein Albumin Globulin Albumin/Globulin Ratio Triglycerides Cholesterol LDL Cholesterol VLDL Cholesterol HDL Cholesterol Ur Random Sodium Urine Creatinine 02/15/19 05:50 WBC RBC Hgb Hct MCV MCH MCHC RDW RDW Differential Plt Count MPV Immature Gran % (Auto) Neut % (Auto) Lymph % (Auto) F[place] % (Auto) Eos % (Auto) Baso % (Auto) Absolute Neuts (auto) Absolute Lymphs (auto) Total Counted Differential Comment ESR Sodium 135 L Potassium 4.1 Chloride 104 Carbon Dioxide 26.0 Anion Gap 5 BUN 18 Creatinine 1.02 Estim Creat Clear Calc 71.38 Est GFR (MDRD) Af Amer 79 Est GFR (MDRD) Non-Af 65 BUN/Creatinine Ratio 17.6 Glucose 184 H Hemoglobin A1c Lactic Acid Calcium 7.7 L Phosphorus 1.8 L Magnesium 2.0 Total Bilirubin 0.40 AST 24 ALT 40 Alkaline Phosphatase 74 Total Protein 6.7 Albumin 2.4 L Globulin 4.3 H Albumin/Globulin Ratio 0.6 L Triglycerides 405 H Cholesterol 162 LDL Cholesterol TNP VLDL Cholesterol TNP HDL Cholesterol 11 L Ur Random Sodium Urine Creatinine POC Glucose 02/15/19 02/14/19 02/14/19 06:55 21:07 16:52 POC Glucose 173 H 200 H 141 H 02/14/19 12:31 POC Glucose 174 H Medical Necessity - Tobacco Use Smoking Status: Never smoker Tobacco Use: Non-smoker Assessment/Plan All Active Problems (Last Reviewed 02/14/19 @ 12:14 by Krystle Magallon DO) Nephrolithiasis (Acute) Pyelonephritis (Acute) Acute kidney injury (Acute) Dehydration (Acute) Segmental and somatic dysfunction of lumbar region (Acute) Vertigo (Acute) Near syncope (Acute) Dysuria (Resolved) Urinary tract infection (Resolved) Impressions 1. Pyelonephritis with mild left hydronephrosis secondary to nephrolithiasis with 4 mm calculus at the ureteropelvic junction on the left 2. Nephrolithiasis 3. Hydronephrosis on the left 4. Diabetes mellitus type 2 5. Hypertension 6. Morbid obesity 7. Hepato-steatosis 8. Hot flashes and lightheadedness-possibly secondary to withdrawal of Wellbutrin. 9. Hypophosphatemia 10. Hyperlipidemia Continue Rocephin Continue hydration to flush the 4 mm stone from the ureteropelvic junction on the left Blood sugars are under good control. Supplement phosphorus The patient is a 38-year-old female with a history of diabetes mellitus type 2, hypertension, morbid obesity so will treat as though she already had coronary disease and start a statin going forward to maintain the LDL at 70 or below. Code Visit Inpatient E&M: 91552 Subs Hosp L2
[2019-02-15 11:46] LABS: Bedside Glucose 174 mg/dL (70-110)
[2019-02-15 13:00] VITALS: BP 118/67; PULSE 74; RESP 16; TEMP 36.5; O2SAT 95
[2019-02-15 17:10] VITALS: BP 138/63; PULSE 78; RESP 16; TEMP 37.1; O2SAT 95
[2019-02-15 17:15] LABS: Bedside Glucose 175 mg/dL (70-110)
[2019-02-15] MEDS: LORazepam 0.5 MG Tablet PO (20:50)
[2019-02-15 21:11] LABS: Bedside Glucose 179 mg/dL (70-110)
[2019-02-15 22:20] VITALS: BP 143/79; PULSE 79; RESP 18; TEMP 36.9; O2SAT 95
[2019-02-16] MEDS: 0.9% Normal Saline 1,000 ML 150 ML IV ×3 (02:05→18:14)
[2019-02-16 04:20] VITALS: BP 113/45; PULSE 70; RESP 18; TEMP 36.6; O2SAT 95
[2019-02-16] MEDS: oxyCODONE 5 MG Tablet PO ×3 (06:15→18:16)
[2019-02-16] MEDS: Ibuprofen 400 MG Tablet PO ×3 (06:15→18:16)
[2019-02-16 07:01] LABS: Bedside Glucose 161 mg/dL (70-110)
[2019-02-16] MEDS: Insulin Lispro 100 UNIT/ML INSULN.PEN SQ ×3 (08:33→21:31)
[2019-02-16] MEDS: Acetaminophen 325 MG Tablet 650 MG PO (08:40)
[2019-02-16] MEDS: Lisinopril 5 MG Tablet PO (09:52)
[2019-02-16] MEDS: PARoxetine 10 MG Tablet PO (09:52)
[2019-02-16] MEDS: Ceftriaxone 1 GM/50 ML BAG IV (09:52)
[2019-02-16 10:20] VITALS: BP 152/92; PULSE 66; RESP 18; TEMP 36.1; O2SAT 99
--- NOTE | 2019-02-16 11:12 | CASEMGMT ---
PEPE GRAFF assessment: Face to Face with patient for initial transition planning/care coordination assessment. PEPE GRAFF introduced self and role at [facility], pt voices understanding and consents to assessment at this time. Pt is sitting up in bed in no distress at this time. Pt is A/Ox4 at this time and answers all questions appropriately at this time. Care providers, pharmacy, and demographics verified at this time. PCP: Carolyn Specialists: DEDE Schafer [facility] Prescription Benefit: [facility] Living Will/HPOA: Pt states may have completed AD in the past but is unsure of where they are. Pt would like new info on LW/HPOA at this time and is aware that SW can help pt complete when ready. AD info provided to pt at this time and Bella NICK aware at this time, voices understanding. Pt states will notify RN when ready. LNOK: Marilynn Parker, grandmother Living Arrangements: Pt states lives with 12yo daughter in [place] and states no concerns at home at this time. Pt states is independent with ADL's. Transportation: Pt states drives self and states no transportation concerns at this time. DME/HHC: Pt states no current DME or need for any at this time. Pt states no hx HHC or SNF in the past. Pt states no concerns with going home at time of discharge. 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 Pt states does not smoke or drink ETOH. Pt states no further concerns/needs at this time. CM to follow for any further discharge planning/needs. Advised pt to ask for CM if any further questions/concerns/needs arise, voices understanding. Pt Goal: Home Plan[place]
[2019-02-16 12:01] LABS: Bedside Glucose 141 mg/dL (70-110)
[2019-02-16] MEDS: Meclizine HCl 25 MG Tablet PO (13:34)
[2019-02-16] MEDS: Ondansetron 4 MG/2 ML Vial IV (13:34)
[2019-02-16 16:30] VITALS: BP 140/85; PULSE 71; RESP 16; TEMP 36.8; O2SAT 96
[2019-02-16 16:35] LABS: Bedside Glucose 157 mg/dL (70-110)
--- NOTE | 2019-02-16 18:54 | CT_ITS ---
STUDY: CT ABDOMEN AND PELVIS WITHOUT CONTRAST REASON FOR EXAM: Female, 38 years old. Stone RADIATION DOSAGE (If Supplied By Facility): CTDIvol = ( 34.45 ) mGy, DLP = ( 2014.33 ) mGycm TECHNIQUE: Transaxial images were obtained from the dome of the diaphragm to the symphysis pubis without oral contrast, and without intravenous contrast. Sagittal and coronal images were reconstructed. Individualized dose optimization techniques were used for this CT. COMPARISON: February 14, 2019 FINDINGS: The visualized lung bases are unremarkable. The visualized portions of the heart are within normal limits. Normal liver. Status post cholecystectomy. No significant dilatation of the extrahepatic biliary system. Prominent spleen. Normal pancreas. Normal bilateral adrenal glands. Normal right kidney. 7 mm stone at the left UPJ with hydronephrosis of the left kidney. Interval increasing left perinephric stranding. There is also left periureteral stranding. Normal visualized stomach. Normal small intestine. Normal colon. The appendix is visualized and appears normal. Normal abdominal aorta. Normal inferior vena cava. Mild adenopathy in the retroperitoneum. Normal urinary bladder. Normal uterus. Trace pelvic fluid. Normal abdominal wall. Mild degenerative vertebral changes. Mild left paramedian disc protrusion at T11-12. CT/Abdomen/Pelvis without Cont IMPRESSION: Increasing left hydronephrosis with a stone obstructing at the left UPJ. Trace pelvic fluid. Prominent spleen. Mild retroperitoneal adenopathy. Electronically Signed: Blu Castro DO at 20:41 EDT Tel [phone], Service support ,
--- NOTE | 2019-02-16 18:59 | PN_ITS ---
Patient Problems: Active and Suspected Problems (Last Reviewed 02/14/19 @ 12:14 by Krystle Magallon DO) Nephrolithiasis (Acute) Pyelonephritis (Acute) Acute kidney injury (Acute) Dehydration (Acute) Subjective: Day #3 antibiotics All events of the past 24 hours of been reviewed She is afebrile. Vital signs are stable. Pulse ox is 96-99% on room air. All lab was personally reviewed: Blood sugars are very well controlled. She is c/o feeling hot and a little lightheaded - this may be due to withdrawal from Wellbutrin.....we stopped because one of the main side effects is YUAN and she suffers from migraines. Denies nausea, emesis, shortness of breath, cough. She feels bloated today...had a normal BM. Continues to c/o left flank pain. she also has LLQ pain but, better than at admission. No dysuria Objective: PHYSICAL EXAM: GENERAL: alert, oriented X 3, Cooperative, NAD, her face is flushed ORAL: moist mucosa, no mucosal lesions NECK: No JVD, supple, trachea midline LUNGS: CTA, symmetric chest expansion HEART: RRR, Normal S1 and S2, no rub, no gallop Telemetry: Normal sinus rhythm ABDOMEN: soft, Tender in the LLQ.....very localized with no guarding, ND, BS present, no guarding with palpation EXTREMITIES: no edema, no cyanosis, no calf tenderness SKIN: No rashes, no breakdown NEUROLOGIC: no focal neurologic deficits PSYCH: appropriate, normal affect, pleasant - Physical Exam Vital Signs Temp Pulse Resp BP Pulse Ox 98.2 F 71 16 140/85 H 96 02/16/19 16:30 02/16/19 16:30 02/16/19 16:30 02/16/19 16:30 02/16/19 16:30 Oxygen Delivery Method Room Air Weight: 284 lb 9.868 oz Body Mass Index (BMI) 44.6 Finger Stick Blood Glucose 98 Intake and Output for Last 24 Hours 02/14/19 02/15/19 02/16/19 23:59 23:59 23:59 Intake Total 1303 / 1303 9853 / 9853 5246 / 5246 Output Total 800 / 800 6740 / 6740 4150 / 4150 Balance 503 / 503 3113 / 3113 1096 / 1096 Microbiology Past 72 Hours 02/14/19 11:45 Blood Culture - Preliminary Blood Culture (Wb) - Arm Right No growth in 48 hours. 02/14/19 14:20 Urine Culture - Final Urine Catheter - Catheter Culture exhibits no growth. 02/14/19 08:30 Urine Culture - Final Urine, Clean Catch Culture exhibits no growth. POC Glucose 02/16/19 02/16/19 02/16/19 16:31 11:45 06:46 POC Glucose 157 H 141 H 161 H 02/15/19 20:46 POC Glucose 179 H Medical Necessity - Tobacco Use Smoking Status: Never smoker Tobacco Use: Non-smoker Assessment/Plan All Active Problems (Last Reviewed 02/14/19 @ 12:14 by Krystle Magallon DO) Nephrolithiasis (Acute) Pyelonephritis (Acute) Acute kidney injury (Acute) Dehydration (Acute) Segmental and somatic dysfunction of lumbar region (Acute) Vertigo (Acute) Near syncope (Acute) Dysuria (Resolved) Urinary tract infection (Resolved) Impressions 1. Pyelonephritis with mild left hydronephrosis secondary to nephrolithiasis with 4 mm calculus at the ureteropelvic junction on the left 2. Nephrolithiasis 3. Hydronephrosis on the left 4. Diabetes mellitus type 2 5. Hypertension 6. Morbid obesity 7. Hepato-steatosis 8. Hot flashes and lightheadedness-possibly secondary to withdrawal of Wellbutrin. Blood cultures and urine culture had no growth Since she is still having significant flank pain will need to repeat the CT scan of the abdomen and pelvis to see if the stone is passed. The pain may be due to pyelonephritis and not kidney stone. Recheck lab in the a.m. Continue Rocephin Continue hydration Add Bentyl 10 mg before meals and at bedtime to see if it improves the left lower quadrant pain If the CT scan still shows the stone impacted at the ureteropelvic junction will need to transfer her for intervention. No urologist available at [facility] this week. Start short acting Wellbutrin and taper off over a few days. Will discuss with her whether she wants to increase the Paxil or try Effexor which helps to suppress appetite like Wellbutrin
[2019-02-16] MEDS: Dicyclomine 10 MG Capsule PO (20:05)
[2019-02-16] MEDS: buPROPion 75 MG Tablet PO (20:05)
[2019-02-16 21:25] VITALS: BP 147/78; PULSE 72; RESP 16; TEMP 36.9; O2SAT 96
[2019-02-17 00:44] VITALS: BP 137/79; PULSE 68; RESP 18; TEMP 37; O2SAT 95
[2019-02-17] MEDS: Morphine 2 MG/ML Syringe IV (00:47)
[2019-02-17] MEDS: 0.9% NaCl Peripheral Flush Adult/Peds IV ×2 (00:47→00:55)
[2019-02-17 01:05] LABS: Bedside Glucose 234 mg/dL (70-110)
[2019-02-17] MEDS: 0.9% Normal Saline 1,000 ML 150 ML IV ×2 (03:18→10:27)
[2019-02-17 05:56] VITALS: BP 139/73; PULSE 68; RESP 16; TEMP 37; O2SAT 97
[2019-02-17] MEDS: Ibuprofen 400 MG Tablet PO ×3 (06:04→16:18)
[2019-02-17] MEDS: Dicyclomine 10 MG Capsule PO ×3 (06:04→16:16)
[2019-02-17] MEDS: oxyCODONE 5 MG Tablet PO ×3 (06:04→16:11)
[2019-02-17 07:00] LABS: Bedside Glucose 134 mg/dL (70-110)
[2019-02-17 07:31] LABS: Absolute Lymphocyte Count 1.43 X10^3/ul (0.83-4.51); Absolute Neutrophil Count 4.1 X10^3/uL (2.0-7.7); Basophil# 0.03 X10^3/uL; Basophil% 0.5 % (0-1); Eosinophil# 0.12 X10^3/uL; Eosinophils% 1.9 % (0-5); Hematocrit 31.9 % (37-47); Hemoglobin 10.7 g/dl (12.0-15.0); Lymphocyte # 1.43 X10^3/ul (4.0); Lymphocyte % 23.1 % (19-41); Mean Corp Hgb Conc 33.5 g/gl (32-36); Mean Corpuscular Hgb 31.7 pg (27.0-32.0); Mean Corpuscular Volume 94.4 fL (81-99); Mean Platelet Vol. 9.3 fl (6.2-12.0); Monocyte# 0.51 X10^3/uL; Monocyte% 8.2 % (0-10); Neutrophil # 4.06 X10^3/uL (2.7-7.7); Neutrophil % 65.7 % (47-70); Platelet Count 136 K/mm3 (150-450); RBC Distribution Width CV 13.5 % (11.6-14.6); RBC Distribution Width SD 46.7 fl (35.1-43.9); Red Blood Count 3.38 M/mm3 (4.2-5.4); White Blood Count 6.2 K/mm3 (4.4-11.0)
[2019-02-17 07:32] LABS: POSITIVE COUNT NO; POSITIVE DIFFERENTIAL NO; POSITIVE MORPHOLOGY NO
[2019-02-17 08:09] LABS: Anion Gap 9 (5-15); BUN 9 mg/dL (7-18); BUN/Creat Ratio 11.8 RATIO (10-20); Calcium,Total 8.7 mg/dL (8.5-10.1); Chloride 104 mmol/L (98-107); Creatinine, Serum 0.76 mg/dL (0.55-1.02); EST Glomerular Filtration Rate 91 mL/min (>60); Est Glom Filt Rate - Afr Amer 110 mL/min (>60); Glucose 140 mg/dL (74-106); Magnesium 1.2 mg/dL (1.6-2.6); Potassium 4.1 mmol/L (3.5-5.1); Sodium Level 138 mmol/L (136-145)
--- NOTE | 2019-02-17 08:24 | PCM.PN.BLA ---
Progress Note Day #4 Rocephin Patient is afebrile. Vital signs are stable. Blood sugars are well controlled. The HS sugar is mildly increased. White blood cell count today is down to 6.2 with a normal differential. BMP is unremarkable. Creatinine is 0.76. Creatinine at admission was 1.83. Magnesium is 1.2 and a phosphorus is mildly increased at 5.[address] scan of the abdomen and pelvis done last evening showed that the stone is enlarging and has now gone from 4 mm to 7 mm. It is still located at the left UPJ. There is hydronephrosis of the left kidney. There is interval increased left perinephric stranding and periureteral stranding. She tells me that she feels much better today. She denies any flank pain. She denies dysuria. No nausea. GENERAL: alert, oriented X 3, Cooperative, NAD, her face is flushed ORAL: moist mucosa, no mucosal lesions NECK: No JVD, supple, trachea midline LUNGS: CTA, symmetric chest expansion HEART: RRR, Normal S1 and S2, no rub, no gallop Telemetry: Normal sinus rhythm ABDOMEN: soft, NT today, no flank pain EXTREMITIES: no edema, no cyanosis, no calf tenderness SKIN: No rashes, no breakdown NEUROLOGIC: no focal neurologic deficits PSYCH: appropriate, normal affect, pleasant Impressions 1. Pyelonephritis with mild left hydronephrosis secondary to nephrolithiasis with 7 mm calculus at the ureteropelvic junction on the left 2. Nephrolithiasis 3. Hydronephrosis on the left with perinephric and periureteral stranding 4. Diabetes mellitus type 2 5. Hypertension 6. Morbid obesity 7. Hepato-steatosis 8. Hot flashes and lightheadedness-possibly secondary to withdrawal of Wellbutrin. Resolved with starting short acting Wellbutrin at 75 BID She is AF with a normal WBC count and diff. She is not symptomatic and the creat is normal. Would like to DC on antibiotics and have her follow up with Dr. Christensen next week. Will discuss with Dr. Christensen.....if she feels she needs to see a urologist now then we will have to transfer. Code Visit Inpatient E&M: 12176 Subs Hosp L2
--- NOTE | 2019-02-17 08:46 | CASEMGMT ---
According to the [facility] website, the following are in-network tertiary facilities: [facility], [facility], [facility], [facility], [facility], [place], [facility], and . [facility]ity CANTU CM
[2019-02-17] MEDS: Magnesium Oxide 400 MG Tablet PO (09:37)
[2019-02-17] MEDS: Ceftriaxone 1 GM/50 ML BAG IV (09:37)
[2019-02-17] MEDS: Magnesium Sulfate 4gm/100mL 4 GM/100 ML IV.SOLN. IV (09:38)
[2019-02-17] MEDS: PARoxetine 10 MG Tablet PO (09:40)
[2019-02-17] MEDS: Lisinopril 5 MG Tablet PO (09:41)
[2019-02-17] MEDS: buPROPion 75 MG Tablet PO (09:42)
[2019-02-17 11:46] LABS: Bedside Glucose 161 mg/dL (70-110)
[2019-02-17] MEDS: Insulin Lispro 100 UNIT/ML INSULN.PEN SQ ×2 (12:12→16:16)
[2019-02-17 12:23] VITALS: BP 128/75; PULSE 69; RESP 16; TEMP 36.7; O2SAT 96
[2019-02-17 16:06] LABS: Bedside Glucose 200 mg/dL (70-110)
--- NOTE | 2019-02-17 18:26 | NURSING ---
1200-agree with assessment/charting by caleb santoro.
--- NOTE | 2019-02-17 18:27 | NURSING ---
1730-pt waiting on dc papers and retail pharm to deliver dc meds.
--- NOTE | 2019-02-17 19:25 | DCINST_ITS ---
- Discharge Diagnoses Current Active Problems: Current Active and Chronic Problems (Last Reviewed 02/14/19 @ 12:14 by Krystle Magallon DO) Type 2 diabetes mellitus (Chronic) Hypertension (Chronic) Obesity (Chronic) Nephrolithiasis (Acute) Pyelonephritis (Acute) Acute kidney injury (Acute) Dehydration (Acute) You will use the following diet at home:: Calorie/Carbohydrate Controlled (specify 1200, 1400, etc) Your food should be the consistency of: Regular Your liquids should be the consistency of: Regular/Thin Discharge Activity: - - Advance activity as tolerated-you will be more tired than usual so patient herself. Return to work on:: 02/24/19 Call your doctor if you observe: Fever of 101 or Higher, Inability to urinate, Shortness of breath, Dizziness, Fainting spells, Chest pain, Calf discomfort, Uncontrolled pain, - - Call your PCP if severe diarrhea ( > 5 stools a day), painful sores in the mouth, painful swallowing, rash or itching. Taking a probiotic such as Lactobacillus or Kefir can help with loose stools while taking antibiotics. Additional Instructions: If you have recurrent fevers, nausea, vomiting, increased/recurrent left flank pain come back to the ED and we will transfer you to a hospital with a urologist. Take it easy and do not do to much!!! You have been very sick and I do not want you working until next Saturday. Dr. Christensen is going to see you next Saturday in her office. Her office will probably call you with an appt BUT, if they don't you call them. Allergies/Adverse Reactions: Allergies STEROIDS Allergy (Uncoded 02/14/19 08:04) Hives Medications to take at Discharge Lorazepam [Ativan] 0.5 mg PO DAILY PRN PRN 10/27/13 Albuterol Inhaler [Ventolin Hfa] 1 - 2 puff INHALATION Q6H PRN PRN 10/27/15 Tizanidine HCl [Zanaflex] 4 mg PO DAILY PRN PRN 04/29/17 Erenumab-Aooe [Aimovig Autoinjector] 140 mg IM QMONTH 07/22/18 Ibuprofen 400 mg PO PRN PRN 07/22/18 Metformin HCl [Metformin HCl ER] 500 mg PO BID 07/22/18 Meclizine HCl 25 mg PO TID PRN #20 tab 07/23/18 Lisinopril [Zestril] 5 mg PO DAILY 02/14/19 Amox/Clavulanate Tablet [Augmentin Tablet] 875 mg PO Q12H #14 tablet 02/17/19 Magnesium Oxide [Mag-Ox 400] 400 mg PO DAILYCM #30 tablet 02/17/19 Oxycodone HCl/Acetaminophen [Percocet 5-325 mg Tablet] 1 each PO Q4H PRN PRN 5 Days #28 tablet 02/17/19 Paroxetine [Paxil] 20 mg PO DAILY #30 tablet 02/17/19 buPROPion tablets [Wellbutrin tablets] 75 mg PO BID #15 tablet 02/17/19 The following prescriptions were given: Oxycodone HCl/Acetaminophen [Percocet 5-325 mg Tablet] 1 each PO Q4H PRN PRN 5 Days #28 tablet PRN Reason: Pain Amox/Clavulanate Tablet [Augmentin Tablet] 875 mg PO Q12H #14 tablet Magnesium Oxide [Mag-Ox 400] 400 mg PO DAILYCM #30 tablet Paroxetine [Paxil] 20 mg PO DAILY #30 tablet buPROPion tablets [Wellbutrin tablets] 75 mg PO BID #15 tablet Primary Care Physician: Zeferino Leon MD [Primary Care Provider] - Please follow up with your Primary Care Physician in: 1-2 weeks Test Results: Test results from this visit will be discussed in further detail at your follow- up appointment, if applicable. Please Follow Up With: Saundra Christensen MD When: Saturday Proposed Discharge Date: 02/17/19
--- NOTE | 2019-02-17 19:26 | PCM.DC.SUM ---
Discharge Date and Diagnosis - Problem List Patient Problems: Active and Suspected Problems (Last Reviewed 02/14/19 @ 12:14 by Krystle Magallon DO) Hydroureter, left (Acute) Hydronephrosis, left (Acute) Date of Admission: 02/14/19 Date of Discharge: 02/17/19 - Primary Discharge Diagnosis Active and Suspected Problems (Last Reviewed 02/14/19 @ 12:14 by Krystle Magallon DO) Pyelonephritis (Acute) Hydroureter, left (Acute) Hydronephrosis, left (Acute) Nephrolithiasis (Acute) with a 7 mm stone at the left UPJ Acute kidney injury (Acute) Dehydration (Acute) - Secondary Discharge Diagnosis Chronic Problems (Last Reviewed 02/14/19 @ 12:14 by Krystle Magallon DO) Nonalcoholic hepatosteatosis (Chronic) Type 2 diabetes mellitus (Chronic) Hypertension (Chronic) Obesity (Chronic) Segmental and somatic dysfunction of lumbar region (Chronic) Vertigo (Chronic) Lumbosacral spondylosis (Chronic) Lumbar facet arthropathy (Chronic) Left upper quadrant abdominal pain (Chronic) Segmental and somatic dysfunction of pelvic region (Chronic) Segmental and somatic dysfunction of thoracic region (Chronic) Radiculopathy of lumbosacral region (Chronic) Disc displacement, lumbar (Chronic) 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 4 mm left UVJ calculus with mild hydronephrosis and perinephric edema suggesting component of obstruction. 2. Hepatic steatosis. 3. Apparent cholecystectomy Electronically Signed: Luis Fernando Coleman MD at 10:13 EDT , Service support , Abdomen/Pelvis CT 02/16/19 18:54 IMPRESSION: Increasing left hydronephrosis with a stone obstructing at the left UPJ. Trace pelvic fluid. Prominent spleen. Mild retroperitoneal adenopathy. Electronically Signed: Blu Castro DO at 20:41 EDT Tel [phone], Service support , Laboratory Results - last 24 hr 02/16/19 02/17/19 02/17/19 21:24 06:55 07:09 WBC 6.2 RBC 3.38 L Hgb 10.7 L Hct 31.9 L MCV 94.4 MCH 31.7 MCHC 33.5 RDW 13.5 RDW Differential 46.7 H Plt Count 136 L MPV 9.3 Immature Gran % (Auto) 0.600 Neut % (Auto) 65.7 Lymph % (Auto) 23.1 [place] % (Auto) 8.2 Eos % (Auto) 1.9 Baso % (Auto) 0.5 Absolute Neuts (auto) 4.1 Absolute Lymphs (auto) 1.43 Total Counted Not Reportable Sodium Potassium Chloride Carbon Dioxide Anion Gap BUN Creatinine Estim Creat Clear Calc Est GFR (MDRD) Af Amer Est GFR (MDRD) Non-Af BUN/Creatinine Ratio Glucose Calcium Phosphorus Magnesium POC Glucose 234 H 134 H 02/17/19 02/17/19 02/17/19 07:09 11:34 15:58 WBC RBC Hgb Hct MCV MCH MCHC RDW RDW Differential Plt Count MPV Immature Gran % (Auto) Neut % (Auto) Lymph % (Auto) [place] % (Auto) Eos % (Auto) Baso % (Auto) Absolute Neuts (auto) Absolute Lymphs (auto) Total Counted Sodium 138 Potassium 4.1 Chloride 104 Carbon Dioxide 25.0 Anion Gap 9 BUN 9 Creatinine 0.76 Estim Creat Clear Calc 95.80 Est GFR (MDRD) Af Amer 110 Est GFR (MDRD) Non-Af 91 BUN/Creatinine Ratio 11.8 Glucose 140 H Calcium 8.7 Phosphorus 5.0 H Magnesium 1.2 L POC Glucose 161 H 200 H Microbiology 02/14/19 11:45 Blood Culture (Wb) - Arm Right Blood Culture - Preliminary No growth in 48 hours. 02/14/19 14:20 Urine Catheter - Catheter Urine Culture - Final Culture exhibits no growth. 02/14/19 08:30 Urine, Clean Catch Urine Culture - Final Culture exhibits no growth. none Operations: None Procedures: None Summary of Care Provided: The patient is a 38 year old F with a past medical history of diabetes mellitus type 2 diagnosed in June 2008, hypertension, obesity, chronic back pain and anxiety/depression who presented to the emergency department at [facility] on 02/14/2019 complaining of shortness of breath, lightheadedness, left flank pain, abdominal pain and dysuria. She additionally complained of profuse sweating and shaking chills. Vital signs of presentation to the emergency room were temperature 99.1, blood pressure 100/53, pulse 99, respiratory rate 17 and she was 96-99% saturated on room air. Significant lab included a white blood cell count of 11 with 88% neutrophils. Hemoglobin was normal at 12.9 and platelets were low at 127,000. Sodium was decreased at 131 with a chloride of 97. Potassium was 3.7. BUN was increased at 29 and the creatinine was increased at 1.83 creatinine on December 11 was 0.55. Lactic acid and hemoglobin A1c are pending. Random blood sugar was 203. UA showed an increased specific gravity 1.025 and was nitrite positive (She has taken Azo). UA had 0-5 WBCs with 1+ bacteria. Noncontrasted CT scan of the abdomen and pelvis showed a 4 mm left with mild hydronephrosis and perinephric edema ureterovesical junction calculus. There was hepato-steatosis. She was admitted to the hospital and maintained on Rocephin which had been started in the emergency department. Blood cultures and urine culture were ordered. Blood cultures had no growth in 48 hours and the urine culture had no growth. On 02/15/2019 the white blood cell count had come down to 5.3 with a persistent left shift. She continued to complain of severe left flank pain and bloating. A repeat CT scan of the abdomen and pelvis was done and showed a 7 mm stone at the left UPJ with hydroureter and hydronephrosis with stranding. On 02/17/2019 white blood cell count was 6.2 with a normal differential. She stated she felt great on that day and denied any flank pain or abdominal pain. She had no nausea and no dysuria. She was afebrile with a normal creatinine of 0.76, down from 1.83 at admission. I was in contact with Dr. Christensen who will see her on Saturday and schedule surgery for stone removal. She was discharged home on Augmentin 875 mg every 12 hours for an additional 7 days. She has been having severe migraines and has been seeing neurology. She was recently started on Wellbutrin and 1 of the major side effects is cephalgia. Wellbutrin XL 150 mg was discontinued and the patient was started on 75 mg p.o. twice daily. This dose will be maintained for the next 5 days and then cut down to 75 mg once daily for 5 days and then discontinued. Paxil was increased to 20 mg p.o. daily. She was given a prescription for Percocet for pain at discharge. She will remain off work until 02/24/[address] Christensen schedule surgery she will likely be off longer than that. She was instructed to rest and finish all of her antibiotics. Should she develop a fever greater than 109 point degrees Fahrenheit or recurrent severe left flank pain she will return to the emergency department and at that point will do would have to transfer her to a facility with a urologist. There were no urology services available the week of her admission at [facility]. She will follow-up with Dr. Leon in 1-2 weeks post discharge. GENERAL: alert, oriented X 3, Cooperative, NAD, her face is flushed ORAL: moist mucosa, no mucosal lesions NECK: No JVD, supple, trachea midline LUNGS: CTA, symmetric chest expansion HEART: RRR, Normal S1 and S2, no rub, no gallop Telemetry: Normal sinus rhythm ABDOMEN: soft, NT today, no flank pain EXTREMITIES: no edema, no cyanosis, no calf tenderness SKIN: No rashes, no breakdown NEUROLOGIC: no focal neurologic deficits PSYCH: appropriate, normal affect, pleasant This note was generated with [employer] dictation software. It may contain incorrect words, spelling, and punctuation that were not noted in checking the note before signing. Patient Problems: Active and Suspected Problems (Last Reviewed 02/14/19 @ 12:14 by Krystle Magallon DO) Hydroureter, left (Acute) Hydronephrosis, left (Acute) - Physical Exam Vital Signs Temp Pulse Resp BP Pulse Ox 98.1 F 69 16 128/75 H 96 02/17/19 12:23 02/17/19 12:23 02/17/19 12:23 02/17/19 12:23 02/17/19 12:23 Oxygen Delivery Method Room Air Weight: 284 lb 9.868 oz Body Mass Index (BMI) 44.6 Finger Stick Blood Glucose 98 Intake and Output for Last 24 Hours 02/15/19 02/16/19 02/17/19 23:59 23:59 23:59 Intake Total 9853 / 9853 8767 / 8767 3184 / 3184 Output Total 6740 / 6740 5950 / 5950 3700 / 3700 Balance 3113 / 3113 2817 / 2817 -516 / -516 Microbiology Past 72 Hours 02/14/19 11:45 Blood Culture - Preliminary Blood Culture (Wb) - Arm Right No growth in 48 hours. 02/14/19 14:20 Urine Culture - Final Urine Catheter - Catheter Culture exhibits no growth. 02/14/19 08:30 Urine Culture - Final Urine, Clean Catch Culture exhibits no growth. Laboratory Tests Past 24 Hrs 02/17/19 02/17/19 07:09 07:09 WBC 6.2 RBC 3.38 L Hgb 10.7 L Hct 31.9 L MCV 94.4 MCH 31.7 MCHC 33.5 RDW 13.5 RDW Differential 46.7 H Plt Count 136 L MPV 9.3 Immature Gran % (Auto) 0.600 Neut % (Auto) 65.7 Lymph % (Auto) 23.1 [place] % (Auto) 8.2 Eos % (Auto) 1.9 Baso % (Auto) 0.5 Absolute Neuts (auto) 4.1 Absolute Lymphs (auto) 1.43 Total Counted Not Reportable Sodium 138 Potassium 4.1 Chloride 104 Carbon Dioxide 25.0 Anion Gap 9 BUN 9 Creatinine 0.76 Estim Creat Clear Calc 95.80 Est GFR (MDRD) Af Amer 110 Est GFR (MDRD) Non-Af 91 BUN/Creatinine Ratio 11.8 Glucose 140 H Calcium 8.7 Phosphorus 5.0 H Magnesium 1.2 L POC Glucose 02/17/19 02/17/19 02/17/19 15:58 11:34 06:55 POC Glucose 200 H 161 H 134 H 02/16/19 21:24 POC Glucose 234 H Discharge Activity: - - Advance activity as tolerated-you will be more tired than usual so patient herself. Return to work on:: 02/24/19 Call your doctor if you observe: Fever of 101 or Higher, Inability to urinate, Shortness of breath, Dizziness, Fainting spells, Chest pain, Calf discomfort, Uncontrolled pain, - - Call your PCP if severe diarrhea ( > 5 stools a day), painful sores in the mouth, painful swallowing, rash or itching. Taking a probiotic such as Lactobacillus or Kefir can help with loose stools while taking antibiotics. Home Medications: Medications to take at Discharge Lorazepam [Ativan] 0.5 mg PO DAILY PRN PRN 10/27/13 Albuterol Inhaler [Ventolin Hfa] 1 - 2 puff INHALATION Q6H PRN PRN 10/27/15 Tizanidine HCl [Zanaflex] 4 mg PO DAILY PRN PRN 04/29/17 Erenumab-Aooe [Aimovig Autoinjector] 140 mg IM QMONTH 07/22/18 Ibuprofen 400 mg PO PRN PRN 07/22/18 Metformin HCl [Metformin HCl ER] 500 mg PO BID 07/22/18 Meclizine HCl 25 mg PO TID PRN #20 tab 07/23/18 Lisinopril [Zestril] 5 mg PO DAILY 02/14/19 Amox/Clavulanate Tablet [Augmentin Tablet] 875 mg PO Q12H #14 tablet 02/17/19 Magnesium Oxide [Mag-Ox 400] 400 mg PO DAILYCM #30 tablet 02/17/19 Oxycodone HCl/Acetaminophen [Percocet 5-325 mg Tablet] 1 each PO Q4H PRN PRN 5 Days #28 tablet 02/17/19 Paroxetine [Paxil] 20 mg PO DAILY #30 tablet 02/17/19 buPROPion tablets [Wellbutrin tablets] 75 mg PO BID #15 tablet 02/17/19 Following Prescrptions Were Given to Patient: Oxycodone HCl/Acetaminophen [Percocet 5-325 mg Tablet] 1 each PO Q4H PRN PRN 5 Days #28 tablet PRN Reason: Pain Amox/Clavulanate Tablet [Augmentin Tablet] 875 mg PO Q12H #14 tablet Magnesium Oxide [Mag-Ox 400] 400 mg PO DAILYCM #30 tablet Paroxetine [Paxil] 20 mg PO DAILY #30 tablet buPROPion tablets [Wellbutrin tablets] 75 mg PO BID #15 tablet Primary Care Physician: Zeferino Leon MD [Primary Care Provider] - Please follow up with your Primary Care Physician in: 1-2 weeks Please Follow Up With: Saundra Christensen MD When: Next Saturday Disposition: Home Minutes spent on discharge:: 35 Patient Condition:: Good Medical Necessity - Tobacco Use Smoking Status: Never smoker Tobacco Use: Non-smoker Meaningful Use Info Meaningful Use Diagnoses (Choose all that apply): None applicable Code Visit Inpatient E&M: 63400 Disch Hosp
[2019-02-17 19:53] VITALS: BP 135/65; PULSE 64; RESP 17; TEMP 36.6; O2SAT 95
--- NOTE | 2019-02-18 14:00 | CASEMGMT ---
PEPE GRAFF Discharge Follow-Up Phone Call. Lace: 10 Strata: 3 Discharge Date: 02/17/19 Adm Dx: Pyelonephritis and nephrolithiasis w/stone impacted in ureter. Attempted discharge follow-up phone call. No answer. Left message for pt to return call to PER[employer]OV[employer] CONSULTANTJaelyn CANTU CM, if she has any questions about the discharge instructions, medications, appts, or any other questions/concerns. Phone number provided. Alvin WAGONER RN, CM
== END 2019-02-17 20:02 | disposition home or self-care (01) | DRG 690 ==
LOC: ED 08:25 → PCU 10:39
PROVIDERS: Admitting Provider Internal Medicine; Emergency Provider Emergency Medicine; Family Provider Family Medicine; PCP Family Medicine; Visit Provider Internal Medicine
DX: N13.6 Pyonephrosis (principal); Z68.41 Body mass index [BMI] 40.0-44.9, adult; I10 Essential (primary) hypertension; E66.01 Morbid (severe) obesity due to excess calories; K76.0 Fatty (change of) liver, not elsewhere classified; E11.9 Type 2 diabetes mellitus without complications; E78.5 Hyperlipidemia, unspecified; E83.39 Other disorders of phosphorus metabolism; N17.9 Acute kidney failure, unspecified; E86.0 Dehydration
CPT/HCPCS: 36415; 74176; 80048; 80053; 80061; 81001; 82570; 82962; 83036; 83605; 83735; 84100; 84300; 84703; 85025; 85652; 87040; 87086; 97802; 99285; J7030; J7040; A4216; J2405

== ENCOUNTER 2019-02-25 07:49 | Day surgery (SDC) | payer OTHER, SELFPAY ==
[2019-02-14 11:38] VITALS: BMI 44.6
[2019-02-25] VITALS (9 sets, daily range): BP systolic 133–159; BP diastolic 69–95; PULSE 46–63; RESP 16–18; TEMP 36.2–36.7; O2SAT 92–99; BMI 42.3
[2019-02-25 08:19] LABS: Internal QC Validated? YES +Cl - CLEAR BKGD
[2019-02-25 08:26] LABS: Pregnancy, Urine Negative Negative
[2019-02-25 08:51] LABS: Bedside Glucose 138 mg/dL (70-110)
--- NOTE | 2019-02-25 09:22 | DCINST_ITS ---
Discharge Diet: No Restrictions, - - drink lots of water Discharge Activity: Return to Normal Activity, May not drive while taking narcot ic pain medications. May resume sexual activity in: No Restrictions Call your doctor if you observe: Fever of 101 or Higher, Inability to urinate, Shortness of breath, Chest pain, Calf discomfort, Uncontrolled pain Allergies/Adverse Reactions: Allergies STEROIDS Allergy (Uncoded 02/14/19 08:04) Hives Medications to take at Discharge Lorazepam [Ativan] 0.5 mg PO DAILY PRN PRN 10/27/13 Albuterol Inhaler [Ventolin Hfa] 1 - 2 puff INHALATION Q6H PRN PRN 10/27/15 Tizanidine HCl [Zanaflex] 4 mg PO DAILY PRN PRN 04/29/17 Erenumab-Aooe [Aimovig Autoinjector] 140 mg IM QMONTH 07/22/18 Ibuprofen 400 mg PO PRN PRN 07/22/18 Metformin HCl [Metformin HCl ER] 1,000 mg PO DAILY 07/22/18 Meclizine HCl 25 mg PO TID PRN #20 tab 07/23/18 Lisinopril [Zestril] 5 mg PO DAILY 02/14/19 Magnesium Oxide [Mag-Ox 400] 400 mg PO DAILYCM #30 tablet 02/17/19 Paroxetine [Paxil] 20 mg PO DAILY #30 tablet 02/17/19 buPROPion tablets [Wellbutrin tablets] 75 mg PO BID #15 tablet 02/17/19 Oxycodone [Oxyir] 5 mg PO Q6H PRN PRN 02/24/19 Oxycodone HCl/Acetaminophen [Percocet 5/325] 1 - 2 tab PO Q6H PRN PRN 7 Days #30 tab 02/25/19 Phenazopyridine HCl [Pyridium] 200 mg PO TID PRN PRN 7 Days #30 tab 02/25/19 Smz/Tmp Ds [Bactrim Ds] 1 tab PO BID 3 Days #6 tab 02/25/19 The following prescriptions were given: Oxycodone HCl/Acetaminophen [Percocet 5/325] 1 - 2 tab PO Q6H PRN PRN 7 Days #30 tab PRN Reason: Pain Phenazopyridine HCl [Pyridium] 200 mg PO TID PRN PRN 7 Days #30 tab PRN Reason: Bladder Spasms Smz/Tmp Ds [Bactrim Ds] 1 tab PO BID 3 Days #6 tab Primary Care Physician: Zeferino Leon MD [Primary Care Provider] - Test Results: Test results from this visit will be discussed in further detail at your follow- up appointment, if applicable. Please Follow Up With: Saundra Christensen MD When: 2 weeks with KUB, call office for appt Proposed Discharge Date: 02/25/19
--- NOTE | 2019-02-25 09:22 | PCM.OPRPT ---
Problem List (1) Calculus of left kidney Status: Acute Report of Operation Date of Procedure: 02/25/19 Pre-Operative Diagnosis: left renal calculus Post-Operative Diagnosis: same Surgery/Procedure Performed:: cystoscopy, left ureteral stent insertion, left renal extracorporeal shockwave lithotripsy Description of Surgical Findings:: stent in good position, stone well fragmented. Type of Anesthesia:: General Special Medications: Ancef Specimen's removed: none Grafts/Implants Used: JJ stent - Complications none - Admit VTE Documentation VTE Present on Admission: Yes VTE Mechan Device Prophylaxis: SCD's VTE Pharm Prophylaxis ordered?: No Reason prophylaxis not ordered:: Treatment Not Indicated
[2019-02-25] MEDS: Cefazolin 2 GM in 0.9% Normal Saline 100 ML IV (09:37)
[2019-02-25 10:36] LABS: Bedside Glucose 153 mg/dL (70-110)
== END 2019-02-25 14:01 | disposition home or self-care (01) ==
LOC: SDC 07:49 → AC 07:50
PROVIDERS: Anesthesiology; Family Provider Family Medicine; PCP Family Medicine; Referring Provider Urology; Visit Provider Urology
PROC: (CPT 50590; principal; 2019-02-25 09:15)
DX: N20.0 Calculus of kidney (principal); E11.9 Type 2 diabetes mellitus without complications; I10 Essential (primary) hypertension; G47.33 Obstructive sleep apnea (adult) (pediatric); N13.39 Other hydronephrosis; N39.0 Urinary tract infection, site not specified
CPT/HCPCS: 50590; 52332; 81025; 82962; J7120; C1769; C2617; J2405

== ENCOUNTER 2019-03-01 18:38 | Emergency (ER) | payer OTHER, SELFPAY ==
[2019-02-25 08:21] VITALS: BMI 42.3
[2019-03-01 18:41] VITALS: BP 148/91; PULSE 88; RESP 16; TEMP 36.7; BMI 43.1
[2019-03-01 19:55] LABS: Mucous, Urine 0 SEEN /hpf (<or=2+)
[2019-03-01 19:56] LABS: Color, Urine Amber (Yellow); Glucose, Dipstick Normal (Normal); Ketone-Dipstick Negative (Negative); Leukocyte Esterase-Dipstick 100 /ul (Negative); Nitrite-Dipstick Positive (Negative); Occult Blood-Urine 250 /ul (Negative); Protein-Dipstick 30 mg/dl (Negative); Urine Clarity Sl. Cloudy (Clear); Urine Urobilinogen 8 mg/dl (Normal)
[2019-03-01 20:10] LABS: Urine Bilirubin Dipstick 3 mg/dL (Negative)
[2019-03-01 20:12] LABS: Bacteria 1+ /hpf (None Seen); Red Blood Cells-Urine 10-25 SEEN /hpf (0-5); Squamous Epithelial Cells - UA 0-5 SEEN /hpf (5-10); White Blood Cells 10-25 SEEN /hpf (0-5)
[2019-03-01 20:26] LABS: Absolute Lymphocyte Count 2.93 X10^3/ul (0.83-4.51); Absolute Neutrophil Count 5.1 X10^3/uL (2.0-7.7); Basophil# 0.08 X10^3/uL; Basophil% 0.9 % (0-1); Eosinophil# 0.18 X10^3/uL; Hematocrit 39.4 % (37-47); Hemoglobin 13.4 g/dl (12.0-15.0); Lymphocyte # 2.93 X10^3/ul (4.0); Lymphocyte % 33.2 % (19-41); Mean Corpuscular Hgb 31.6 pg (27.0-32.0); Mean Corpuscular Volume 92.9 fL (81-99); Mean Platelet Vol. 9.2 fl (6.2-12.0); Monocyte# 0.47 X10^3/uL; Monocyte% 5.3 % (0-10); Neutrophil # 5.09 X10^3/uL (2.7-7.7); Neutrophil % 57.8 % (47-70); Platelet Count 205 K/mm3 (150-450); RBC Distribution Width SD 44.3 fl (35.1-43.9); Red Blood Count 4.24 M/mm3 (4.2-5.4); White Blood Count 8.8 K/mm3 (4.4-11.0)
[2019-03-01 20:27] LABS: POSITIVE COUNT NO; POSITIVE DIFFERENTIAL NO; POSITIVE MORPHOLOGY NO
[2019-03-01 20:29] LABS: Anion Gap 6 (5-15); BUN 11 mg/dL (7-18); BUN/Creat Ratio 14.7 RATIO (10-20); Calcium,Total 9.4 mg/dL (8.5-10.1); Chloride 103 mmol/L (98-107); Creatinine, Serum 0.75 mg/dL (0.55-1.02); EST Glomerular Filtration Rate 93 mL/min (>60); Est Glom Filt Rate - Afr Amer 112 mL/min (>60); Estimated Creatinine Clearance 100.84 ml/min; Glucose 111 mg/dL (74-106); Potassium 4.5 mmol/L (3.5-5.1); Sodium Level 135 mmol/L (136-145)
[2019-03-01] MEDS: Morphine 4 MG/ML Syringe IV (20:29)
[2019-03-01] MEDS: Ondansetron 4 MG/2 ML Vial IV (20:30)
[2019-03-01] MEDS: 0.9% Normal Saline 1,000 ML 150 ML IV (20:33)
[2019-03-01 20:38] VITALS: BP 148/86; PULSE 74; RESP 16; O2SAT 96
--- NOTE | 2019-03-01 21:28 | ED.VIS.GEN ---
History of Present Illness Chief Complaint: Nausea/Vomiting Detail of Chief Complaint: And left-sided abdomen flank pain Informant: Patient Onset: Today Context: Gradual Onset Timing: Continuous Quality: Pain Location: Left side abdomen and back Current Severity: Mild Maximum Severity: Moderate Worsened by: Nothing Relieved by: Nothing Associated Symptoms: Nausea and vomiting no urinary symptoms Narrative: Patient is a 38-year-old woman with history of diabetes who had a stent placed by urology this past Saturday. She tolerated procedure well. She was treated for a urinary tract infection and ureteral stone. She presently denies urinary symptoms. She does complain of left-sided pain with nausea and vomiting. She states she has not had much to eat. She has not checked her blood sugar today. She denies fever or chills. She denies cardiac arrest or symptoms. She denies trauma. Prior similar symptoms: No Recent Illness/Hospitalization: Yes - Past Medical History (1) Acute kidney injury Status: Acute (2) Calculus of left kidney Status: Acute (3) Dehydration Status: Acute (4) Hydronephrosis, left Status: Acute (5) Nephrolithiasis Status: Acute (6) Pyelonephritis Status: Acute (7) Hypertension Status: Chronic (8) Obesity Status: Chronic (9) Type 2 diabetes mellitus Status: Chronic Past Medical History - Allergies and Home Meds Allergies/Adverse Reactions: Allergies STEROIDS Allergy (Uncoded 02/14/19 08:04) [facility] Primary Care Physician: Zeferino Leon MD [Primary Care Provider] - Surgical History: cholecystectomy Lives: Alone Smoking Status: Never smoker Alcohol: None - Family History Paternal Family History: Family History (Last Reviewed 02/07/19 @ 10:58 by Karol Montoya) Father Diabetes Family History: Reports: Diabetes, High Cholesterol, Heart Disease, Hypertension Maternal Family History: Family History (Last Reviewed 02/07/19 @ 10:58 by Karol Montoya) Father Diabetes Family History: Reports: - Review of Systems ENT: Denies: Rhinorrhea, Sore throat Cardiovascular: Denies: Chest pain, Palpitations, Heart racing Respiratory: Denies: Dyspnea, Cough, Dyspnea on exertion Gastrointestinal: Reports: Abdominal pain, Nausea, Vomiting. Denies: Diarrhea, Constipation, Melena, Hematochezia, -, - Genitourinary: Denies: Dysuria, Hematuria, Frequency Musculoskeletal: Denies: Myalgias, Arthralgias, Neck pain, Swelling Skin: Denies: Rash, Abscess, Abrasions Neurological: Denies: Headache, Weakness, Parasthesia Psych: Denies: Depression, Anxiety Endocrine: Denies: Polyuria, Polydipsia Hematologic: Denies: Easy bruising, Easy bleeding Allergy: Denies: Uticaria, Swelling of the mouth Physical Exam Vital Signs/Narrative: Vital Signs Temp Pulse Resp BP 03/01/19 18:41 98.0 F 88 16 148/91 H Inital Vital Signs reviewed: Yes General: Well nourished, Well developed, Obese, No Acute Distress Head: Normocephalic, Atraumatic Eyes: Perrl, EOMI. Negative for: Pale conjunctiva, Scleral icterus ENT: Moist mucous membranes, No rhinorrhea Neck: Supple, Nontender, No lymphadenopathy Cardiovascular: Regular rate, Regular rhythm, No murmurs, Normal S1, Normal S2 Respiratory: No distress, CTA bilaterally, Chest nontender Abdomen: Soft, Nondistended, Normal bowel sounds, No masses, Tender. Negative for: Guarding, Rebound tenderness, Hepatomegaly, Splenomegaly, Mass, Pulsatile mass Back: Nontender, Normal Inspection, CVA tenderness - Left side Extremities: Nontender, No edema Skin: Normal color, No rash, No Trauma. Negative for: Cyanosis, Jaundice Neurological: Alert, Oriented x3, Cranial nerves II-XII grossly intact, Normal Strength, Normal Sensation Psychological: Normal affect, Normal Mood Diagnostic/Tx/Re-eval Chest X-Ray - ED: 1 View, Read by ED Physician, - - Stent is in proper position. There is no ossific gas pattern noted. 03/01/19 22:34 KUB [Abdomen Single View] [RAD] Stat Laboratory Results 03/01/19 03/01/19 03/01/19 19:10 19:40 19:40 WBC Cancelled Corrected WBC Cancelled RBC Cancelled Hgb Cancelled Hct Cancelled MCV Cancelled MCH Cancelled MCHC Cancelled RDW Cancelled RDW Differential Cancelled Plt Count Cancelled MPV Cancelled Immature Gran % (Auto) Cancelled Neut % (Auto) Cancelled Lymph % (Auto) Cancelled [place] % (Auto) Cancelled Eos % (Auto) Cancelled Baso % (Auto) Cancelled Immature Gran # (Auto) Cancelled Absolute Neuts (auto) Cancelled Absolute Lymphs (auto) Cancelled Absolute Monos (auto) Cancelled Total Counted Cancelled Neutrophils % (Manual) Cancelled Band Neutrophils % Cancelled Lymphocytes % (Manual) Cancelled Monocytes % (Manual) Cancelled Eosinophils % (Manual) Cancelled Basophils % (Manual) Cancelled Metamyelocytes % Cancelled Myelocytes % Cancelled Promyelocytes % Cancelled Blast Cells % Cancelled Plasma Cell % (Manual) Cancelled Other Cells % Cancelled Lymphocytes # Cancelled Nucleated RBCs/100 WBC Cancelled Differential Comment Cancelled Diff Path Review Cancelled Hypersegmented Neuts Cancelled Atypical Lymphocytes Cancelled Reactive Lymphocytes Cancelled Smudge Cells Cancelled Eosinophilia # Cancelled Basophilia # Cancelled Toxic Granulation Cancelled Dohle Bodies Cancelled [place] Rods Cancelled Platelet Estimate Cancelled Plt Morphology Comment Cancelled RBC Morphology Cancelled Polychromasia Cancelled Hypochromasia Cancelled Poikilocytosis Cancelled Basophilic Stippling Cancelled Anisocytosis Cancelled Microcytosis Cancelled Macrocytosis Cancelled Spherocytes Cancelled Sickle Cells Cancelled Target Cells Cancelled Tear Drop Cells Cancelled Ovalocytes Cancelled Stomatocytes Cancelled [place] Bodies Cancelled Benita Cells Cancelled Bite Cells Cancelled Acanthocytes (Spur) Cancelled Rouleaux Cancelled Schistocytes Cancelled Sodium 135 L Potassium 4.5 Chloride 103 Carbon Dioxide 26.0 Anion Gap 6 BUN 11 Creatinine 0.75 Estim Creat Clear Calc 100.84 Est GFR (MDRD) Af Amer 112 Est GFR (MDRD) Non-Af 93 BUN/Creatinine Ratio 14.7 Glucose 111 H Calcium 9.4 Urine Color Arti Urine Clarity Sl. Cloudy Urine pH 5.0 Ur Specific [place] 1.020 Urine Protein 30 H Urine Glucose (UA) Normal Urine Ketones Negative Urine Occult Blood 250 H Urine Nitrite Positive H Urine Bilirubin 3 H Urine Urobilinogen 8 H Ur Leukocyte Esterase 100 H Urine RBC 10-25 SEEN Urine WBC 10-25 SEEN Ur Squamous Epith Cells 0-5 SEEN Urine Bacteria 1+ Urine Mucus 0 SEEN 03/01/19 20:15 WBC 8.8 Corrected WBC RBC 4.24 Hgb 13.4 Hct 39.4 MCV 92.9 MCH 31.6 MCHC 34.0 RDW 13.0 RDW Differential 44.3 H Plt Count 205 MPV 9.2 Immature Gran % (Auto) 0.800 Neut % (Auto) 57.8 Lymph % (Auto) 33.2 [place] % (Auto) 5.3 Eos % (Auto) 2.0 Baso % (Auto) 0.9 Immature Gran # (Auto) Absolute Neuts (auto) 5.1 Absolute Lymphs (auto) 2.93 Absolute Monos (auto) Total Counted Not Reportable Neutrophils % (Manual) Band Neutrophils % Lymphocytes % (Manual) Monocytes % (Manual) Eosinophils % (Manual) Basophils % (Manual) Metamyelocytes % Myelocytes % Promyelocytes % Blast Cells % Plasma Cell % (Manual) Other Cells % Lymphocytes # Nucleated RBCs/100 WBC Differential Comment Diff Path Review Hypersegmented Neuts Atypical Lymphocytes Reactive Lymphocytes Smudge Cells Eosinophilia # Basophilia # Toxic Granulation Dohle Bodies [place] Rods Platelet Estimate Plt Morphology Comment RBC Morphology Polychromasia Hypochromasia Poikilocytosis Basophilic Stippling Anisocytosis Microcytosis Macrocytosis Spherocytes Sickle Cells Target Cells Tear Drop Cells Ovalocytes Stomatocytes [place] Bodies [place] Cells Bite Cells Acanthocytes (Spur) Rouleaux Schistocytes Sodium Potassium Chloride Carbon Dioxide Anion Gap BUN Creatinine Estim Creat Clear Calc Est GFR (MDRD) Af Amer Est GFR (MDRD) Non-Af BUN/Creatinine Ratio Glucose Calcium Urine Color Urine Clarity Urine pH Ur Specific [place] Urine Protein Urine Glucose (UA) Urine Ketones Urine Occult Blood Urine Nitrite Urine Bilirubin Urine Urobilinogen Ur Leukocyte Esterase Urine RBC Urine WBC Ur Squamous Epith Cells Urine Bacteria Urine Mucus - Medical Decision Making Since patient is diabetic basic metabolic panel was obtained. This was assess electrolytes, CO2 anion gap and renal function. CBC was obtained to assess white count differential. Urine was obtained to determine if she has an infection. KUB was ordered to assess position of stent. Will contact her urologist once all results are available for my review. ED Disposition - Plan for ED Patient: Disposition: Home or Assisted Living Diagnosis: Bacteriuria with pyuria, Left sided abdominal pain, Ureteral stenosis, left Referrals: Zeferino Leon MD [Primary Care Provider] - Saundra Christensen MD [STAFF PHYSICIAN] - 03/02/19 Additional Instructions: Dr. Christensen will see you in the morning. Call the office to schedule appointment
[2019-03-01] MEDS: Metoclopramide 10 MG/2 ML Vial 5 MG IV (22:21)
[2019-03-01] MEDS: Ceftriaxone 1 GM/50 ML BAG IV (22:21)
--- NOTE | 2019-03-01 22:34 | RAD_ITS ---
STUDY: X-RAY - ABDOMEN/PELVIS REASON FOR EXAM: Female, 38 years old. Nausea. TECHNIQUE: 2 AP images of the abdomen. COMPARISON: July 22, [address] dated February 16, 2019 FINDINGS: Normal visualized lung bases. There is an unremarkable bowel gas pattern. There is no demonstrated free abdominal air. There are surgical clips within the right upper quadrant consistent with prior cholecystectomy. There appears to be a surgical clips within the right mid abdomen that was present on the prior CT. There is a left ureteral stent in place that appears within a grossly satisfactory position. There is a phlebolith within the pelvis right of midline. Normal visualized osseous structures. RAD/Abdomen Single View IMPRESSION: Nonspecific bowel gas pattern. Electronically Signed: Esther Villegas MD at 22:59 EDT Tel , Service support ,
[2019-03-01 23:15] VITALS: BP 112/67; PULSE 71; RESP 16; O2SAT 97
== END 2019-03-01 23:15 | disposition home or self-care (01) ==
PROVIDERS: Emergency Provider Emergency Medicine; Family Provider Family Medicine; PCP Family Medicine
DX: R82.71 Bacteriuria (principal); N39.0 Urinary tract infection, site not specified; R10.9 Unspecified abdominal pain; Q62.10 Congenital occlusion of ureter, unspecified; E11.9 Type 2 diabetes mellitus without complications; Z90.49 Acquired absence of other specified parts of digestive tract; I10 Essential (primary) hypertension
CPT/HCPCS: 74018; 80048; 81001; 85025; 87086; 96361; 96365; 96375; 99282; J7030; A4216; J2405

== ENCOUNTER → 2019-03-14 08:35 | Outpatient (CLI) | payer OTHER, SELFPAY ==
[2019-03-01 18:41] VITALS: BMI 43.1
--- NOTE | 2019-03-14 08:38 | CT_ITS ---
STUDY: CT ABDOMEN AND PELVIS WITHOUT CONTRAST REASON FOR EXAM: Female, 38 years old. Follow-up left renal stone RADIATION DOSAGE (If Supplied By Facility): CTDIvol = ( 24.18 ) mGy, DLP = ( 1443.81 ) mGycm TECHNIQUE: Transaxial images were obtained from the dome of the diaphragm to the symphysis pubis without oral contrast, and without intravenous contrast. Sagittal and coronal images were reconstructed. Individualized dose optimization techniques were used for this CT. COMPARISON: 2018 CT abdomen and pelvis FINDINGS: The visualized lung bases are unremarkable. The visualized portions of the heart are within normal limits. The liver is enlarged and fatty infiltrated. There are surgical clips in the gallbladder fossa consistent with a prior cholecystectomy. There is mild splenomegaly. Normal pancreas. Normal bilateral adrenal glands. Normal right kidney. There is a 4.8 mm nonobstructing stone in the left kidney. This is new since the prior study. The stone within the left ureter has resolved. There is no evidence of hydronephrosis. Normal visualized stomach. Normal small intestine. Normal colon. The appendix is visualized and appears normal. Normal abdominal aorta. Normal inferior vena cava. There are small 1 cm or less retroperitoneal lymph nodes. There are no stones in the bladder. Normal visualized uterus. There is mild dependent edema in the abdominal wall and prominent subcutaneous fat. There is an exaggerated physiologic lordosis. Degenerative change in the lower thoracic spine T11-T12 with mild left neural foramina narrowing minimal central stenosis. CT/Abdomen/Pelvis without Cont IMPRESSION: There is a new nonobstructing 4.8 mm stone in the left kidney when compared to the prior study. The obstructing stone in the left kidney has resolved. There Is no evidence of hydronephrosis Hepatomegaly. Splenomegaly Status post cholecystectomy Mild body wall edema. Degenerative changes in the thoracolumbar spine. Electronically Signed: Matilde Lopez MD at 10:58 EDT Tel , Service support ,
== END ==
PROVIDERS: Family Provider Family Medicine; PCP Family Medicine; Referring Provider Urology; Visit Provider Urology
DX: N20.0 Calculus of kidney (principal)
CPT/HCPCS: 74176

== ENCOUNTER → 2019-03-19 14:21 | Outpatient (CLI) | payer OTHER, SELFPAY ==
[2019-03-01 18:41] VITALS: BMI 43.1
--- NOTE | 2019-03-19 14:24 | RAD_ITS ---
STUDY: X-RAY - ABDOMEN/PELVIS REASON FOR EXAM: Female, 38 years old. Kidney stone TECHNIQUE: Two AP supine views of the abdomen and pelvis. COMPARISON: None. FINDINGS: Normal visualized lung bases. There is a moderate amount of colonic fecal material. There is no demonstrated free abdominal air. Right upper quadrant cholecystectomy clips The visualized liver, spleen and kidneys are grossly normal in size and morphology. No definite evidence of renal stone bilaterally Normal soft tissue structures. Normal visualized osseous structures. RAD/Abdomen Single View IMPRESSION: Normal x-ray examination of the abdomen and pelvis. Electronically Signed: Taco Fulton DO at 11:42 EDT Tel , Service support ,
[2019-03-19 17:30] LABS: Absolute Lymphocyte Count 2.56 X10^3/ul (0.83-4.51); Absolute Neutrophil Count 5.1 X10^3/uL (2.0-7.7); Basophil# 0.04 X10^3/uL; Basophil% 0.5 % (0-1); Eosinophil# 0.11 X10^3/uL; Eosinophils% 1.3 % (0-5); Hematocrit 36.2 % (37-47); Hemoglobin 12.2 g/dl (12.0-15.0); Lymphocyte # 2.56 X10^3/ul (4.0); Lymphocyte % 30.6 % (19-41); Mean Corp Hgb Conc 33.7 g/gl (32-36); Mean Corpuscular Hgb 31.2 pg (27.0-32.0); Mean Corpuscular Volume 92.6 fL (81-99); Mean Platelet Vol. 9.4 fl (6.2-12.0); Monocyte# 0.45 X10^3/uL; Monocyte% 5.4 % (0-10); Neutrophil # 5.14 X10^3/uL (2.7-7.7); Neutrophil % 61.5 % (47-70); Platelet Count 211 K/mm3 (150-450); RBC Distribution Width SD 47.1 fl (35.1-43.9); Red Blood Count 3.91 M/mm3 (4.2-5.4); White Blood Count 8.4 K/mm3 (4.4-11.0)
[2019-03-19 17:36] LABS: POSITIVE COUNT NO; POSITIVE DIFFERENTIAL NO; POSITIVE MORPHOLOGY NO
[2019-03-19 17:40] LABS: Anion Gap 8 (5-15); BUN 12 mg/dL (7-18); BUN/Creat Ratio 14.5 RATIO (10-20); Calcium,Total 9.1 mg/dL (8.5-10.1); Chloride 106 mmol/L (98-107); Creatinine, Serum 0.83 mg/dL (0.55-1.02); EST Glomerular Filtration Rate 82 mL/min (>60); Est Glom Filt Rate - Afr Amer 100 mL/min (>60); Glucose 157 mg/dL (74-106); Potassium 3.7 mmol/L (3.5-5.1); Sodium Level 140 mmol/L (136-145)
== END ==
PROVIDERS: Family Provider Family Medicine; PCP Family Medicine; Referring Provider Urology; Visit Provider Urology
DX: N20.0 Calculus of kidney (principal)
CPT/HCPCS: 36415; 74018; 80048; 85025; 87086; 87088

== ENCOUNTER → 2019-03-21 07:14 | Outpatient (CLI) | payer OTHER, SELFPAY ==
[2019-03-01 18:41] VITALS: BMI 43.1
[2019-03-21 09:02] LABS: Anion Gap 9 (5-15); BUN 14 mg/dL (7-18); BUN/Creat Ratio 19.7 RATIO (10-20); Calcium,Total 8.3 mg/dL (8.5-10.1); Chloride 106 mmol/L (98-107); Creatinine, Serum 0.71 mg/dL (0.55-1.02); EST Glomerular Filtration Rate 99 mL/min (>60); Est Glom Filt Rate - Afr Amer 119 mL/min (>60); Glucose 151 mg/dL (74-106); Potassium 3.9 mmol/L (3.5-5.1); Sodium Level 140 mmol/L (136-145)
== END ==
PROVIDERS: Family Provider Family Medicine; PCP Family Medicine; Referring Provider Family Medicine; Visit Provider Family Medicine
DX: E11.9 Type 2 diabetes mellitus without complications (principal); Z79.4 Long term (current) use of insulin
CPT/HCPCS: 36415; 80048

== ENCOUNTER → 2019-03-31 16:00 | Outpatient (CLI) | payer OTHER, SELFPAY ==
[2019-03-01 18:41] VITALS: BMI 43.1
--- NOTE | 2019-03-31 16:17 | RAD_ITS ---
STUDY: X-RAY CHEST REASON FOR EXAM: Female, 38 years old. Chest pain. TECHNIQUE: PA and lateral views of the chest. COMPARISON: May 01, 2018 FINDINGS: There is no new focal consolidation. Normal size heart. Normal mediastinum and osman. Normal visualized pulmonary arteries. Normal visualized aortic arch and descending thoracic aorta. Normal visualized thoracic spine. Normal visualized ribs, clavicles, and shoulders. There are surgical clips within the right upper quadrant of the abdomen consistent with prior cholecystectomy. RAD/Chest PA and Lateral IMPRESSION: No acute cardiopulmonary process. Electronically Signed: Esther Villegas MD at 16:39 EDT Tel , Service support ,
[2019-03-31 16:32] LABS: Absolute Lymphocyte Count 2.64 X10^3/ul (0.83-4.51); Absolute Neutrophil Count 6.1 X10^3/uL (2.0-7.7); Basophil# 0.04 X10^3/uL; Basophil% 0.4 % (0-1); Eosinophil# 0.14 X10^3/uL; Eosinophils% 1.5 % (0-5); Hematocrit 38.9 % (37-47); Lymphocyte # 2.64 X10^3/ul (4.0); Lymphocyte % 27.8 % (19-41); Mean Corp Hgb Conc 33.4 g/gl (32-36); Mean Corpuscular Hgb 30.9 pg (27.0-32.0); Mean Corpuscular Volume 92.4 fL (81-99); Mean Platelet Vol. 9.4 fl (6.2-12.0); Monocyte# 0.47 X10^3/uL; Neutrophil % 64.2 % (47-70); Platelet Count 192 K/mm3 (150-450); RBC Distribution Width CV 14.1 % (11.6-14.6); RBC Distribution Width SD 46.8 fl (35.1-43.9); Red Blood Count 4.21 M/mm3 (4.2-5.4); White Blood Count 9.5 K/mm3 (4.4-11.0)
[2019-03-31 16:33] LABS: POSITIVE COUNT NO; POSITIVE DIFFERENTIAL NO; POSITIVE MORPHOLOGY NO
[2019-03-31 16:52] LABS: Anion Gap 11 (5-15); BUN 13 mg/dL (7-18); BUN/Creat Ratio 17.4 RATIO (10-20); Chloride 103 mmol/L (98-107); Creatinine, Serum 0.75 mg/dL (0.55-1.02); Glucose 103 mg/dL (74-106); Magnesium 1.6 mg/dL (1.6-2.6); Potassium 3.9 mmol/L (3.5-5.1); Sodium Level 141 mmol/L (136-145); Thyroid Stim Hormone (TSH) 2.26 uIU/mL (0.358-3.74)
[2019-03-31 17:21] LABS: D-Dimer Quantitative (DVT/PE) < 0.27 FEU/ug/m (0.27-0.49)
== END ==
PROVIDERS: Family Provider Family Medicine; PCP Family Medicine; Referring Provider Family Medicine; Visit Provider Family Medicine
DX: R07.9 Chest pain, unspecified (principal); R23.2 Flushing
CPT/HCPCS: 36415; 71046; 80047; 82533; 83735; 84443; 85025; 85379

== ENCOUNTER → 2019-04-14 13:14 | Outpatient (CLI) | payer OTHER, SELFPAY ==
--- NOTE | 2019-04-14 13:56 | STEWCON_ITS ---
Reason For Study: Chest Pain Stress Results Maximum Predicted HR: 184 bpm Target HR: 156 bpm % Maximum Predicted HR: 102 % DurationHeart Rate Stage (mm:ss) (bpm) BP Comment BASELINE 77 146/76DILUTED DEFINITY 5 CC USED LATOYA PROTOCOL- STAGE 1 3:00 127 150/90RARE PVC LATOYA PROTOCOL- STAGE 2 3:00 142 160/92RARE PVC, BIGEMINY, ONE VENTRICULAR COUPLET LATOYA PROTOCOL- STAGE 3 2:00 187 / SOB, NO CP RECOVERY 84 140/84DENIES COMPLAINT Stress Duration: 8:00 mm:ss Maximum Stress HR: 187 bpm METS: 9 Baseline Echocardiogram Findings Stress Echo Wall motion Data Resting WM Intermediate WM Stress WM Resting Wall Motion Wall Motion Stress All segments Normal. All segments Hyperkinetic. Ejection Fraction 60 %. Ejection Fraction 75 %. Stress Results Heart rate response: Appropriate Blood pressure response: Resting hypertension-appropriate response Arrhythmias: Rare PVC during exercise Functional capacity: Average Stopped secondary to: Dyspnea. EKG Data Baseline ECG: Normal sinus rhythm. Exercise ECG: Peak exercise ECG with somatic/motion artifact with beat to beat nonspecific ST segment variability. Symptoms with Stress No complaint of chest discomfort during exercise or recovery. Interpretation Summary Technically difficult study Contrast injection performed NEGATIVE (ADEQUATE) STRESS ECHOCARDIOGRAM Ordering Physician: Carolyn^Zeferino^^^ Referring Physician: Zeferino Leon Performed By: Lorie Sun, JAISON, RVT
== END ==
PROVIDERS: Family Provider Family Medicine; PCP Family Medicine; Referring Provider Family Medicine; Visit Provider Family Medicine
DX: R07.9 Chest pain, unspecified (principal); R94.31 Abnormal electrocardiogram [ECG] [EKG]
CPT/HCPCS: 93017; 93350; Q9957; A4216; C8928

== ENCOUNTER 2019-04-27 11:14 | Outpatient (RCR) | payer OTHER, SELFPAY | END 2019-05-03 23:59 | LOC: NS 11:14 | PROVIDERS: Family Provider Family Medicine; PCP Family Medicine; Visit Provider Family Medicine | DX: E11.9 Type 2 diabetes mellitus without complications (principal); Z79.4 Long term (current) use of insulin; Z71.3 Dietary counseling and surveillance | CPT/HCPCS: 97802 ==

== ENCOUNTER 2019-05-06 14:29 | Emergency (ER) | payer OTHER, SELFPAY ==
[2019-05-06 14:29] VITALS: BP 166/79; PULSE 82; RESP 16; TEMP 36.8; O2SAT 96; BMI 44.6
--- NOTE | 2019-05-06 15:20 | CT_ITS ---
STUDY: CT ABDOMEN AND PELVIS WITHOUT CONTRAST REASON FOR EXAM: Female, 38 years old. Left flank pain x2 days, history of stones RADIATION DOSAGE (If Supplied By Facility): CTDIvol = ( 14.80 ) mGy, DLP = ( 825.95 ) mGycm TECHNIQUE: Transaxial images were obtained from the dome of the diaphragm to the symphysis pubis without oral contrast, and without intravenous contrast. Sagittal and coronal images were reconstructed. Individualized dose optimization techniques were used for this CT. COMPARISON: Prior study of 03/14/2019 FINDINGS: The visualized lung bases are unremarkable. The visualized portions of the heart are within normal limits. Normal liver. There are surgical clips in the gallbladder fossa consistent with a prior cholecystectomy. Normal spleen. Normal pancreas. Normal bilateral adrenal glands. Normal right kidney. There is a nonobstructing 4 mm calculus of the lower pole of the left kidney. Normal visualized stomach. Normal small intestine. Normal colon. The appendix is visualized and appears normal. Normal abdominal aorta. Normal inferior vena cava. Normal retroperitoneum. Normal urinary bladder. The uterus and adnexal structures are unremarkable. Normal abdominal wall. There are mild degenerative changes of the visualized lower thoracic spine. CT/Abdomen/Pelvis without Cont IMPRESSION: 1. Nonobstructing left nephrolithiasis, similar to the previous study. There is no evidence of hydronephrosis, hydroureter, or ureterolithiasis. 2. Status post cholecystectomy. 3. Mild degenerative changes of the visualized lower thoracic spine. 4. There is no evidence of free intra-abdominal or intrapelvic air, fluid, or inflammatory process. Electronically Signed: Shawn James MD at 16:33 EDT , Service support ,
[2019-05-06] MEDS: 0.9% Normal Saline 1,000 ML 125 ML IV (15:39)
[2019-05-06] MEDS: Ondansetron 4 MG/2 ML Vial IV (15:39)
[2019-05-06] MEDS: Ketorolac 30 MG/ML Syringe IV (15:39)
[2019-05-06] MEDS: Morphine 4 MG/ML Syringe IV (15:40)
[2019-05-06 15:46] LABS: Absolute Lymphocyte Count 2.53 X10^3/ul (0.83-4.51); Absolute Neutrophil Count 6.8 X10^3/uL (2.0-7.7); Basophil# 0.03 X10^3/uL; Basophil% 0.3 % (0-1); Eosinophil# 0.13 X10^3/uL; Eosinophils% 1.3 % (0-5); Hematocrit 37.4 % (37-47); Hemoglobin 12.6 g/dl (12.0-15.0); Lymphocyte # 2.53 X10^3/ul (4.0); Lymphocyte % 25.3 % (19-41); Mean Corp Hgb Conc 33.7 g/gl (32-36); Mean Corpuscular Hgb 30.8 pg (27.0-32.0); Mean Corpuscular Volume 91.4 fL (81-99); Mean Platelet Vol. 9.6 fl (6.2-12.0); Monocyte# 0.41 X10^3/uL; Monocyte% 4.1 % (0-10); Neutrophil # 6.81 X10^3/uL (2.7-7.7); Neutrophil % 68.2 % (47-70); Platelet Count 214 K/mm3 (150-450); RBC Distribution Width CV 14.1 % (11.6-14.6); RBC Distribution Width SD 46.7 fl (35.1-43.9); Red Blood Count 4.09 M/mm3 (4.2-5.4)
[2019-05-06 15:47] LABS: POSITIVE COUNT NO; POSITIVE DIFFERENTIAL NO; POSITIVE MORPHOLOGY NO
[2019-05-06 15:49] LABS: Internal QC Validated? YES +Cl - CLEAR BKGD; Pregnancy, Serum, hCG Quali. NEGATIVE Negative
[2019-05-06 15:53] LABS: Bacteria 0 SEEN /hpf (None Seen); Mucous, Urine 0 SEEN /hpf (<or=2+); Red Blood Cells-Urine 0 SEEN /hpf (0-5); White Blood Cells 0 SEEN /hpf (0-5)
[2019-05-06 15:54] LABS: Anion Gap 11 (5-15); BUN 12 mg/dL (7-18); BUN/Creat Ratio 16.9 RATIO (10-20); Calcium,Total 9.3 mg/dL (8.5-10.1); Chloride 104 mmol/L (98-107); Creatinine, Serum 0.71 mg/dL (0.55-1.02); EST Glomerular Filtration Rate 99 mL/min (>60); Est Glom Filt Rate - Afr Amer 119 mL/min (>60); Estimated Creatinine Clearance 106.52 ml/min; Glucose 129 mg/dL (74-106); Potassium 3.8 mmol/L (3.5-5.1); Sodium Level 141 mmol/L (136-145)
[2019-05-06 16:04] LABS: Color, Urine Yellow (Yellow); Glucose, Dipstick Normal (Normal); Ketone-Dipstick 5 mg/dl (Negative); Leukocyte Esterase-Dipstick Negative /ul (Negative); Nitrite-Dipstick Negative (Negative); Occult Blood-Urine Negative /ul (Negative); Protein-Dipstick 30 mg/dl (Negative); Specific Gravity, Urine 1.025 (1.002-1.030); Urine Bilirubin Dipstick Negative (Negative); Urine Clarity Sl. Cloudy (Clear); Urine Urobilinogen Normal (Normal)
[2019-05-06 16:12] LABS: Squamous Epithelial Cells - UA 0-5 SEEN /hpf (5-10)
[2019-05-06 16:21] VITALS: BP 122/85; PULSE 69; RESP 18; TEMP 36.7; O2SAT 98
--- NOTE | 2019-05-06 16:38 | ED.VISSUMM ---
- ER Visit Summary Date of Service: 05/06/19 Chief Complaint: [Abdominal pain/flank pain] History of Present Illness: The patient is a 38 F [the emergency department 2-day history of pain in her left upper abdomen and into her left flank that started initially 2 days ago. Patient's had nausea but no vomiting. Patient thinks the food seems to make a little bit worse. Patient does have a history of kidney stones that she had a ureteral stent on the left side about 2 months ago. Patient had some chills but no documented fever. She has had somewhat decreased urine output but no frequency, urgency, or dysuria. Patient has history of type 2 diabetes and sleep apnea.] Physical Examination: [HEENT-PERRLA, EOMI. Cranial nerves II through XII grossly intact. TMs clear. Mucous membranes moist. No adenopathy. Cardiovascular-regular rate and rhythm without murmur or ectopy Lungs-clear to auscultation, chest wall stable without crepitus or subcu emphysema Abdomen-normoactive bowel sounds, soft. Patient has some tenderness to palpation over the left upper quadrant and CVA tenderness on the left. There is no rebound, rigidity, or perineal signs. Exam somewhat difficult as patient morbidly obese. Extremities-intact ?4, normal range of motion, normal pulses, atraumatic] Test Results: [CBC with differential showed a white count of 10.0, hemoglobin 12.6, hematocrit 37.4, platelets 214. Chemistries unremarkable. Urinalysis was normal. hCG was negative. CT flank showed left nephrolithiasis but no urolithiasis or hydro-ureter or hydronephrosis. Essentially nothing acute noted.] Emergency Department Course and Treatment: Patient initially medicated with Toradol as well as morphine and Zofran she had good pain relief with that. [] Treatment Plan: [Patient advised to use Pepcid [id number] for the next 2 weeks. Patient to follow-up with her primary care physician in 3 to 5 days. Patient will be given a prescription for a few [place] for severe pain and advised to return if fever, vomiting, worsening pain, or conditions worsen anyway.] Disposition: [Discharged home stable condition.] Impression: [Abdominal pain Left flank pain-etiology uncertain] This note was generated with [employer] software. It may contain incorrect words, spelling, and punctuation that were not noted in review of the chart prior to signing ED Disposition - Plan for ED Patient: Referrals: Zeferino Leon MD [Primary Care Provider] -
--- NOTE | 2019-05-06 16:40 | ED.DEP ---
ED Disposition - Plan for ED Patient: Instructions: FLANK PAIN, Uncertain Cause Prescriptions: Hydrocodone Bitart/Apap 5-325 [[place] 5MG-325MG] 1 tab PO Q4H PRN PRN 2 Days #10 tab PRN Reason: Pain Prescription Printed Referrals: Zeferino Leon MD [Primary Care Provider] - 3-5 Days
--- NOTE | 2019-05-06 16:54 | ED.RN ---
PT GIVEN WRITTEN AND VERBAL DISCHARGE INSTRUCTIONS AND HOME GOING PRESCRIPTIONS. PT EDUCATED ON MEDICATIONS AND NOT TO DRIVE WHEN TAKING NARCOTICS. PT VERBALIZES UNDERSTANDING AND DENIES ANY FURTHER QUESTIONS. PT IV D/C AND COVERED WITH 2X2 GAUZE AND PAPER TAPE. PT DRESSES SELF AND AMBULATES TO WAITING ROOM TO WAIT FOR RIDE.
== END 2019-05-06 16:56 | disposition home or self-care (01) ==
LOC: ED 15:23
PROVIDERS: Emergency Provider Emergency Medicine; Family Provider Family Medicine; PCP Family Medicine
DX: R10.9 Unspecified abdominal pain (principal); N20.0 Calculus of kidney; E66.01 Morbid (severe) obesity due to excess calories; G47.30 Sleep apnea, unspecified; E11.9 Type 2 diabetes mellitus without complications; Z87.442 Personal history of urinary calculi
CPT/HCPCS: 74176; 80048; 81001; 84703; 85025; 96361; 96374; 96375; 99283; J7030; J2405

== ENCOUNTER 2019-05-08 10:37 | Emergency (ER) | payer OTHER, SELFPAY ==
[2019-05-08 10:38] VITALS: BP 145/85; PULSE 70; RESP 17; TEMP 36.5; O2SAT 96; BMI 44.4
--- NOTE | 2019-05-08 10:50 | ED.DCSUM_ITS ---
History of Present Illness Chief Complaint: Abd Pain Informant: Patient Onset: Month(s) - 2 Timing: Waxes and wanes Current Severity: Moderate Maximum Severity: Severe Worsened by: Sometimes worsened by food Narrative: Patient presents with a 2-month history of waxing and waning left-sided abdominal pain. She was seen in the ER 2 days ago. She does have a left renal stone, but no acute findings noted on CT scan. Patient continues to have diarrhea that she states has been an issue since she had her gallbladder out. Today pain seem to be worse and she feels more bloated. She does have some right-sided pain today as well. She has not noted fever. - Past Medical History (1) Calculus of left kidney Status: Acute (2) Nephrolithiasis Status: Acute (3) Degeneration of intervertebral disc of lumbosacral region Status: Chronic (4) Hypertension Status: Chronic (5) Obesity Status: Chronic (6) Type 2 diabetes mellitus Status: Chronic Past Medical History - Allergies and Home Meds Allergies/Adverse Reactions: Allergies STEROIDS Allergy (Uncoded 05/08/19 10:38) [facility] Primary Care Physician: Zeferino Leon MD [Primary Care Provider] - Prior records reviewed: Yes Past Medical History: - - Reviewed Surgical History: cholecystectomy Lives: With Family Smoking Status: Never smoker - Family History Paternal Family History: Family History (Last Reviewed 02/07/19 @ 10:58 by Karol Montoya) Father Diabetes Family History: Reports: Diabetes, High Cholesterol, Heart Disease, Hypertension Maternal Family History: Family History (Last Reviewed 02/07/19 @ 10:58 by Karol Montoya) Father Diabetes Family History: Reports: - Review of Systems General: Denies: Chills, Fever Cardiovascular: Reports: Chest pain. Denies: Palpitations, Heart racing Respiratory: Denies: Dyspnea, Cough Gastrointestinal: Reports: Abdominal pain, Nausea, Diarrhea. Denies: Vomiting Genitourinary: Denies: Dysuria, Hematuria, Frequency Physical Exam Vital Signs/Narrative: Vital Signs Temp Pulse Resp BP Pulse Ox 05/08/19 10:38 97.7 F L 70 17 145/85 H 96 Inital Vital Signs reviewed: Yes General: Well nourished, Well developed Head: Normocephalic, Atraumatic Eyes: Perrl, EOMI ENT: Moist mucous membranes Neck: Supple Cardiovascular: Regular rate, Regular rhythm Respiratory: No distress, CTA bilaterally Abdomen: Soft, - - Mild tenderness noted to the left lateral abdominal wall. No guarding or rebound. No palpable masses. Hypoactive bowel sounds are present. Back: Nontender. Negative for: CVA tenderness Extremities: Nontender Skin: Normal color Neurological: Alert, Oriented x3 Diagnostic/Tx/Re-eval Abnormal Lab Results 05/08/19 05/08/19 05/08/19 11:05 11:05 11:10 WBC 8.3 RBC 3.95 L Hgb 12.3 Hct 35.6 L MCV 90.1 MCH 31.1 MCHC 34.6 RDW 13.7 RDW Differential 44.0 H Plt Count 202 MPV 9.3 Immature Gran % (Auto) 1.200 H Neut % (Auto) 62.5 Lymph % (Auto) 27.9 [place] % (Auto) 6.0 Eos % (Auto) 1.9 Baso % (Auto) 0.5 Absolute Neuts (auto) 5.2 Absolute Lymphs (auto) 2.32 Total Counted Not Reportable Sodium 136 Potassium 3.7 Chloride 103 Carbon Dioxide 29.0 Anion Gap 4 L BUN 13 Creatinine 0.68 Estim Creat Clear Calc 111.22 Est GFR (MDRD) Af Amer 126 Est GFR (MDRD) Non-Af 104 BUN/Creatinine Ratio 19.2 Glucose 111 H Calcium 9.1 Total Bilirubin 0.70 Direct Bilirubin 0.11 AST 34 ALT 59 H Alkaline Phosphatase 73 Total Protein 7.4 Albumin 3.7 Globulin 3.7 Lipase 122 Urine Color Yellow Urine Clarity Clear Urine pH 6.0 Ur Specific [place] 1.020 Urine Protein 30 H Urine Glucose (UA) Normal Urine Ketones Negative Urine Occult Blood Negative Urine Nitrite Negative Urine Bilirubin Negative Urine Urobilinogen Normal Ur Leukocyte Esterase 100 H Urine RBC 0 SEEN Urine WBC 0 SEEN Ur Squamous Epith Cells 0 SEEN Urine Bacteria 0 SEEN Urine Mucus 1+ Clinical Impression(s) from Imaging Studies Abdomen X-Ray 05/08/19 11:33 IMPRESSION: Normal x-ray examination of the abdomen and pelvis. Electronically Signed: Emiliano Gonzalez, at 11:49 EDT , Service support , - EKG Initial EKG Interpretation: Sinus Rhythm, - - Normal sinus rhythm at 65 with no acute ischemia. ED Disposition - Plan for ED Patient: Disposition: Home or Assisted Living Instructions: ABDOMINAL PAIN, Unknown Cause, (Female) Prescriptions: Dicyclomine HCl [Bentyl] 20 mg PO TIDAC #20 capsule Referrals: Zeferino Leon MD [Primary Care Provider] - 1 Week
--- NOTE | 2019-05-08 10:55 | EKG12_ITS ---
Test Reason : ABD PAIN Blood Pressure : / mmHG Vent. Rate : 065 BPM Atrial Rate : 065 BPM P-R Int : 140 ms QRS Dur : 088 ms QT Int : 430 ms P-R-T Axes : 001 004 058 degrees QTc Int : 447 ms Normal sinus rhythm Low voltage QRS Nonspecific ST and T wave abnormality Poor R-Wave Progression Abnormal ECG Confirmed by NANCY SHEARER, MOHSEN ([id number]), staff editor PRISCILA FERRERA ([id number]) on 05/11/2019 1:10:23 PM Referred By: GERMAN Confirmed By:MOHSEN CRUZ MD
[2019-05-08] MEDS: 0.9% Normal Saline 1,000 ML 150 ML IV (11:07)
[2019-05-08 11:14] LABS: Bacteria 0 SEEN /hpf (None Seen); Red Blood Cells-Urine 0 SEEN /hpf (0-5); Squamous Epithelial Cells - UA 0 SEEN /hpf (5-10); White Blood Cells 0 SEEN /hpf (0-5)
[2019-05-08 11:17] LABS: Absolute Lymphocyte Count 2.32 X10^3/ul (0.83-4.51); Absolute Neutrophil Count 5.2 X10^3/uL (2.0-7.7); Basophil# 0.04 X10^3/uL; Basophil% 0.5 % (0-1); Eosinophil# 0.16 X10^3/uL; Eosinophils% 1.9 % (0-5); Hematocrit 35.6 % (37-47); Hemoglobin 12.3 g/dl (12.0-15.0); Lymphocyte # 2.32 X10^3/ul (4.0); Lymphocyte % 27.9 % (19-41); Mean Corp Hgb Conc 34.6 g/gl (32-36); Mean Corpuscular Hgb 31.1 pg (27.0-32.0); Mean Corpuscular Volume 90.1 fL (81-99); Mean Platelet Vol. 9.3 fl (6.2-12.0); Neutrophil # 5.21 X10^3/uL (2.7-7.7); Neutrophil % 62.5 % (47-70); Platelet Count 202 K/mm3 (150-450); RBC Distribution Width CV 13.7 % (11.6-14.6); Red Blood Count 3.95 M/mm3 (4.2-5.4); White Blood Count 8.3 K/mm3 (4.4-11.0)
[2019-05-08 11:17] LABS: Color, Urine Yellow (Yellow); Glucose, Dipstick Normal (Normal); Ketone-Dipstick Negative (Negative); Leukocyte Esterase-Dipstick 100 /ul (Negative); Nitrite-Dipstick Negative (Negative); Occult Blood-Urine Negative /ul (Negative); Protein-Dipstick 30 mg/dl (Negative); Urine Bilirubin Dipstick Negative (Negative); Urine Clarity Clear (Clear); Urine Urobilinogen Normal (Normal)
[2019-05-08 11:19] LABS: POSITIVE COUNT NO; POSITIVE DIFFERENTIAL NO; POSITIVE MORPHOLOGY NO
[2019-05-08] MEDS: Ondansetron 4 MG/2 ML Vial IV (11:19)
[2019-05-08] MEDS: Morphine 4 MG/ML Syringe IV (11:19)
[2019-05-08 11:23] VITALS: BP 138/60; PULSE 70; RESP 13; O2SAT 98
[2019-05-08 11:28] LABS: Mucous, Urine 1+ /hpf (<or=2+)
[2019-05-08 11:33] LABS: AST(SGOT) 34 U/L (15-37); Alanine Aminotransfer ALT/SGPT 59 U/L (13-56); Albumin, Serum 3.7 g/dL (3.2-5.0); Alkaline Phosphatase 73 U/L (45-117); Anion Gap 4 (5-15); BUN 13 mg/dL (7-18); BUN/Creat Ratio 19.2 RATIO (10-20); Bilirubin, Direct 0.11 mg/dL (0.00-0.30); Calcium,Total 9.1 mg/dL (8.5-10.1); Chloride 103 mmol/L (98-107); Creatinine, Serum 0.68 mg/dL (0.55-1.02); EST Glomerular Filtration Rate 104 mL/min (>60); Est Glom Filt Rate - Afr Amer 126 mL/min (>60); Estimated Creatinine Clearance 111.22 ml/min; Globulin 3.7 g/dL (2.2-4.2); Glucose 111 mg/dL (74-106); Lipase 122 U/L (73-393); Potassium 3.7 mmol/L (3.5-5.1); Protein, Total 7.4 g/dL (6.4-8.2); Sodium Level 136 mmol/L (136-145)
--- NOTE | 2019-05-08 11:33 | RAD_ITS ---
STUDY: X-RAY - ABDOMEN/PELVIS REASON FOR EXAM: Female, 38 years old. Abdominal pain. Diarrhea. TECHNIQUE: AP supine and upright views of the abdomen and pelvis. COMPARISON: Comparison is made with prior study dated March 19, 2019. FINDINGS: Normal visualized lung bases. There is an unremarkable bowel gas pattern. There is no demonstrated free abdominal air. The visualized liver, spleen and kidneys are grossly normal in size and morphology. Evidence of prior cholecystectomy. There are calcified phleboliths in the pelvis. Normal visualized osseous structures. RAD/Abd Inc Decub and/or Erect IMPRESSION: Normal x-ray examination of the abdomen and pelvis. Electronically Signed: Emiliano Gonzalez, at 11:49 EDT , Service support ,
[2019-05-08 12:50] VITALS: BP 129/64; PULSE 69; RESP 15; O2SAT 98
== END 2019-05-08 12:52 | disposition home or self-care (01) ==
PROVIDERS: Emergency Provider Emergency Medicine; Family Provider Family Medicine; PCP Family Medicine
DX: R10.9 Unspecified abdominal pain (principal); R19.7 Diarrhea, unspecified; E11.9 Type 2 diabetes mellitus without complications; I10 Essential (primary) hypertension; E66.9 Obesity, unspecified; M51.37 Other intervertebral disc degeneration, lumbosacral region; Z90.49 Acquired absence of other specified parts of digestive tract; Z87.442 Personal history of urinary calculi
CPT/HCPCS: 74019; 80048; 80076; 81001; 83690; 85025; 93005; 96361; 96374; 96375; 99284; J7030; A4216; J2405

== ENCOUNTER 2019-05-27 15:30 | Outpatient (RCR) | payer OTHER, SELFPAY | END 2019-06-03 23:59 | LOC: NS 15:30 | PROVIDERS: Family Provider Family Medicine; PCP Family Medicine; Visit Provider Family Medicine | DX: E11.9 Type 2 diabetes mellitus without complications (principal); Z79.4 Long term (current) use of insulin | CPT/HCPCS: 97803 ==

== ENCOUNTER → 2019-06-01 07:12 | Outpatient (CLI) | payer OTHER, SELFPAY ==
[2019-05-08 10:38] VITALS: BMI 44.4
[2019-06-01 08:02] LABS: Hemoglobin A1c 6.3 % (4.2-6.3)
== END ==
PROVIDERS: Family Provider Family Medicine; PCP Family Medicine
DX: E11.9 Type 2 diabetes mellitus without complications (principal); Z79.4 Long term (current) use of insulin
CPT/HCPCS: 36415; 83036

== ENCOUNTER → 2019-06-08 15:07 | Outpatient (CLI) | payer OTHER, SELFPAY ==
[2019-06-08 17:07] LABS: AST(SGOT) 37 U/L (15-37); Alanine Aminotransfer ALT/SGPT 55 U/L (13-56); Albumin, Serum 3.8 g/dL (3.2-5.0); Alkaline Phosphatase 80 U/L (45-117); Bilirubin, Direct 0.11 mg/dL (0.00-0.30); Globulin 3.8 g/dL (2.2-4.2); Lipase 122 U/L (73-393); Protein, Total 7.6 g/dL (6.4-8.2)
[2019-06-10 12:00] LABS: H. Pylori Antibody (IgG) 0.46 (0.00-0.79)
== END ==
PROVIDERS: Family Provider Family Medicine; PCP Family Medicine; Referring Provider Nurse Practitioner Adult Health; Visit Provider Nurse Practitioner Adult Health
DX: R10.11 Right upper quadrant pain (principal); R10.12 Left upper quadrant pain; R11.0 Nausea
CPT/HCPCS: 36415; 80076; 83690; 86677

== ENCOUNTER → 2019-06-11 08:13 | Outpatient (CLI) | payer OTHER, SELFPAY ==
--- NOTE | 2019-06-11 08:15 | RAD_ITS ---
STUDY: AIR-CONTRAST UPPER GI SERIES AND SMALL BOWEL FOLLOW-THROUGH EXAMINATION. REASON FOR EXAM: Female, 38 years old. Nausea. Abdominal pain. History of kidney stones. FLUOROSCOPY TIME (if supplied): (2:09) minutes/seconds. 22 images were obtained. TECHNIQUE: The patient ingested barium. Multiple images of the esophagus, stomach and duodenum were obtained following this, a small bowel follow-through examination was performed. COMPARISON: None. FINDINGS: The esophagus is unremarkable. There is no evidence of obstruction. No evidence of gastroesophageal reflux. No mass lesion is present. The stomach and duodenum are unremarkable. There is no evidence of ulceration. No mass lesions present. A small bowel follow-through examination was performed. The small bowel transit is normal. There is no evidence of intrinsic or extrinsic small bowel disease. The terminal ileum is unremarkable. RAD/Upper GI/w Small Bowel IMPRESSION: Unremarkable examination of the stomach and small bowel. Electronically Signed: Emiliano Gonzalez, at 9:47 EDT , Service support ,
== END ==
PROVIDERS: Family Provider Family Medicine; PCP Family Medicine; Referring Provider Nurse Practitioner Adult Health; Visit Provider Nurse Practitioner Adult Health
DX: R10.11 Right upper quadrant pain (principal); R10.12 Left upper quadrant pain; R11.0 Nausea; R19.4 Change in bowel habit
CPT/HCPCS: 74249

== ENCOUNTER 2019-07-02 08:48 | Outpatient (RCR) | payer OTHER, SELFPAY | END 2019-07-04 23:59 | LOC: NS 08:48 | PROVIDERS: Family Provider Family Medicine; PCP Family Medicine; Visit Provider Family Medicine | DX: E11.9 Type 2 diabetes mellitus without complications (principal); Z79.4 Long term (current) use of insulin; Z71.3 Dietary counseling and surveillance | CPT/HCPCS: 97803 ==

== ENCOUNTER → 2019-07-25 11:44 | Outpatient (CLI) | payer OTHER, SELFPAY ==
[2019-07-25 12:27] LABS: Absolute Lymphocyte Count 2.71 X10^3/uL (0.83-4.51); Absolute Neutrophil Count 5.7 X10^3/uL (2.0-7.7); Basophil# 0.06 X10^3/uL; Basophil% 0.7 % (0-1); Eosinophil# 0.17 X10^3/uL; Eosinophils% 1.9 % (0-5); Hematocrit 41.2 % (37-47); Hemoglobin 13.7 g/dL (12.0-15.0); Lymphocyte # 2.71 X10^3/ul (4.0); Lymphocyte % 29.6 % (19-41); Mean Corp Hgb Conc 33.3 g/dL (32-36); Mean Corpuscular Hgb 30.3 pg (27.0-32.0); Mean Corpuscular Volume 91.2 fL (81-99); Mean Platelet Vol. 9.2 fl (6.2-12.0); Monocyte# 0.38 X10^3/uL; Monocyte% 4.1 % (0-10); NRBC Flagged by Analyzer 0 % (0-5); Neutrophil # 5.73 X10^3/uL (2.7-7.7); Neutrophil % 62.4 % (47-70); Platelet Count 227 K/mm3 (150-450); RBC Distribution Width CV 13.3 % (11.6-14.6); RBC Distribution Width SD 44.1 fl (35.1-43.9); Red Blood Count 4.52 M/mm3 (4.2-5.4); White Blood Count 9.2 K/mm3 (4.4-11.0)
[2019-07-25 13:11] LABS: AST(SGOT) 58 U/L (15-37); Alanine Aminotransfer ALT/SGPT 77 U/L (13-56); Albumin, Serum 3.9 g/dL (3.2-5.0); Alkaline Phosphatase 79 U/L (45-117); Anion Gap 9 (5-15); BUN 11 mg/dL (7-18); BUN/Creat Ratio 15.6 RATIO (10-20); Calcium,Total 9.2 mg/dL (8.5-10.1); Chloride 103 mmol/L (98-107); EST Glomerular Filtration Rate 100 mL/min (>60); Est Glom Filt Rate - Afr Amer 120 mL/min (>60); Globulin 4.1 g/dL (2.2-4.2); Glucose 139 mg/dL (74-106); Sodium Level 140 mmol/L (136-145)
[2019-07-25 13:43] LABS: Microalbumin:Creatinine Ratio 662.8 mg/g CRE (<30 mg/g CRE)
== END ==
PROVIDERS: Family Provider Family Medicine; PCP Family Medicine; Referring Provider Family Medicine; Visit Provider Family Medicine
DX: E11.9 Type 2 diabetes mellitus without complications (principal); Z79.4 Long term (current) use of insulin
CPT/HCPCS: 36415; 80053; 82043; 82570; 85025

== ENCOUNTER 2019-08-28 10:45 | Emergency (ER) | payer OTHER, SELFPAY ==
[2019-08-28 10:46] VITALS: BP 155/100; PULSE 88; RESP 17; TEMP 36.4; O2SAT 95; BMI 44.9
--- NOTE | 2019-08-28 11:12 | CT_ITS ---
STUDY: CT ABDOMEN AND PELVIS WITHOUT CONTRAST REASON FOR EXAM: Female, 39 years old. Left flank pain. Black stool. RADIATION DOSAGE (If Supplied By Facility): CTDIvol = ( 23.88 ) mGy, DLP = ( 1360.10 ) mGycm TECHNIQUE: Transaxial images were obtained from the dome of the diaphragm to the symphysis pubis without oral contrast, and without intravenous contrast. Sagittal and coronal images were reconstructed. Individualized dose optimization techniques were used for this CT. COMPARISON: Comparison is made with prior examination dated May 06, 2019. FINDINGS: The visualized lung bases are unremarkable. The visualized portions of the heart are within normal limits. Normal liver. There are surgical clips in the gallbladder fossa consistent with a prior cholecystectomy. Normal spleen. Normal pancreas. Normal bilateral adrenal glands. Normal right kidney. There is a 3 mm nonobstructive calculus in the lower pole of the left kidney. Normal visualized stomach. Normal small intestine. Normal colon. The appendix is visualized and appears normal. Normal abdominal aorta. Normal inferior vena cava. There is borderline retroperitoneal lymphadenopathy with enlarged nodes no greater than 10mm in the short axis diameter. Normal urinary bladder. Normal abdominal wall. Normal osseous structures. CT/Abdomen/Pelvis without Cont IMPRESSION: Stable nonobstructive calculus in the lower pole calyx of the left kidney. This is unchanged. Electronically Signed: Emiliano Gonzalez, at 12:59 EDT , Service support ,
[2019-08-28 11:51] LABS: Mucous, Urine 0 SEEN /hpf (<or=2+)
[2019-08-28 11:54] LABS: Color, Urine Yellow (Yellow); Glucose, Dipstick Normal (Normal); Ketone-Dipstick 5 mg/dl (Negative); Leukocyte Esterase-Dipstick 100 /ul (Negative); Nitrite-Dipstick Positive (Negative); Occult Blood-Urine 10 /ul (Negative); Protein-Dipstick 100 mg/dl (Negative); Urine Clarity Sl. Cloudy (Clear); Urine Urobilinogen 1 mg/dl (Normal)
[2019-08-28 11:55] LABS: Absolute Lymphocyte Count 2.66 X10^3/uL (0.83-4.51); Absolute Neutrophil Count 5.3 X10^3/uL (2.0-7.7); Basophil# 0.08 X10^3/uL; Basophil% 0.9 % (0-1); Eosinophil# 0.22 X10^3/uL; Eosinophils% 2.5 % (0-5); Hematocrit 38.1 % (37-47); Hemoglobin 12.8 g/dL (12.0-15.0); Lymphocyte # 2.66 X10^3/ul (4.0); Mean Corp Hgb Conc 33.6 g/dL (32-36); Mean Corpuscular Hgb 30.6 pg (27.0-32.0); Mean Corpuscular Volume 91.1 fL (81-99); Mean Platelet Vol. 9.1 fl (6.2-12.0); Monocyte# 0.48 X10^3/uL; Monocyte% 5.4 % (0-10); NRBC Flagged by Analyzer 0 % (0-5); Neutrophil # 5.32 X10^3/uL (2.7-7.7); Neutrophil % 59.8 % (47-70); Platelet Count 196 K/mm3 (150-450); RBC Distribution Width CV 13.4 % (11.6-14.6); RBC Distribution Width SD 44.2 fl (35.1-43.9); Red Blood Count 4.18 M/mm3 (4.2-5.4); White Blood Count 8.9 K/mm3 (4.4-11.0)
[2019-08-28 11:57] LABS: Urine Bilirubin Dipstick 1 mg/dL (Negative)
[2019-08-28 12:00] LABS: Bacteria 1+ /hpf (None Seen); Red Blood Cells-Urine 0-5 SEEN /hpf (0-5); Squamous Epithelial Cells - UA 0-5 SEEN /hpf (5-10); White Blood Cells 10-25 SEEN /hpf (0-5)
[2019-08-28 12:02] LABS: Internal QC Validated? YES +Cl - CLEAR BKGD; Pregnancy, Serum, hCG Quali. NEGATIVE Negative
[2019-08-28 12:11] LABS: AST(SGOT) 48 U/L (15-37); Alanine Aminotransfer ALT/SGPT 71 U/L (13-56); Albumin, Serum 3.9 g/dL (3.2-5.0); Alkaline Phosphatase 73 U/L (45-117); Anion Gap 7 (5-15); BUN 14 mg/dL (7-18); BUN/Creat Ratio 16.9 RATIO (10-20); Bilirubin, Direct 0.13 mg/dL (0.00-0.30); Calcium,Total 8.9 mg/dL (8.5-10.1); Chloride 104 mmol/L (98-107); Creatinine, Serum 0.83 mg/dL (0.55-1.02); EST Glomerular Filtration Rate 82 mL/min (>60); Est Glom Filt Rate - Afr Amer 100 mL/min (>60); Estimated Creatinine Clearance 90.25 ml/min; Globulin 3.7 g/dL (2.2-4.2); Glucose 103 mg/dL (74-106); Lipase 117 U/L (73-393); Potassium 3.8 mmol/L (3.5-5.1); Protein, Total 7.6 g/dL (6.4-8.2); Sodium Level 138 mmol/L (136-145)
--- NOTE | 2019-08-28 12:14 | ED.VIS.GEN ---
History of Present Illness Chief Complaint: GI Bleed Narrative: 39-year-old female presents with left flank pain and left lower quadrant abdominal pain since this morning. She also noticed that her stool was dark. She is nauseated but not vomiting. She has a history of kidney stones as well as chronic back pain but this feels somewhat different than her usual back pain. She is concerned that she could have a kidney stone. She denies taking regular NSAIDs and denies history of previous GI bleed. Current severity is moderate. It is not affected by movement. Onset was gradual. Past Medical History - Allergies and Home Meds Allergies/Adverse Reactions: Allergies STEROIDS Allergy (Uncoded 08/28/19 10:46) Hives Primary Care Physician: Zeferino Leon MD [Primary Care Provider] - Prior records reviewed: Yes Surgical History: cholecystectomy Smoking Status: Never smoker - Family History Paternal Family History: Family History (Last Reviewed 02/07/19 @ 10:58 by Karol Montoya) Father Diabetes Family History: Reports: Diabetes, High Cholesterol, Heart Disease, Hypertension Maternal Family History: Family History (Last Reviewed 02/07/19 @ 10:58 by Karol Montoya) Father Diabetes Family History: Reports: - Review of Systems General: Denies: Chills, Fever, Sweats Eyes: Denies: Visual changes - bilaterally, Diplopia ENT: Denies: Rhinorrhea, Sore throat Cardiovascular: Denies: Chest pain, Palpitations Respiratory: Denies: Dyspnea, Cough, Dyspnea on exertion Gastrointestinal: Reports: Abdominal pain, Nausea, Melena. Denies: Vomiting, Diarrhea, Hematochezia Genitourinary: Denies: Dysuria, Hematuria, Frequency Musculoskeletal: Reports: Back pain. Denies: Extremity Pain Skin: Denies: Rash, Wounds Neurological: Denies: Headache, Weakness, Numbness Physical Exam Vital Signs/Narrative: Vital Signs Temp Pulse Resp BP Pulse Ox 08/28/19 10:46 97.5 F L 88 17 155/100 H 95 General: Well nourished, Well developed, No Acute Distress Head: Normocephalic, Atraumatic Eyes: Perrl, EOMI ENT: Moist mucous membranes, No rhinorrhea Neck: Supple, Nontender Cardiovascular: Regular rate, Regular rhythm, No murmurs Respiratory: No distress, CTA bilaterally, Chest nontender Abdomen: Soft, Nontender, Nondistended, Normal bowel sounds Back: Nontender, Normal Inspection Extremities: Nontender, No edema Skin: Normal color, No rash Neurological: Alert, Oriented x3, Cranial nerves II-XII grossly intact, Normal Strength, Normal Sensation Psychological: Normal affect, Normal Mood Diagnostic/Tx/Re-eval - Medical Decision Making Labs are fairly unremarkable. CT abdomen/pelvis feels a stone in the left kidney but nothing in the ureter. Her urine does appear infected however with positive nitrites. With her flank pain and nausea, I suspect she does have an early pyelonephritis. She is not vomiting here and does not have a fever so I feel the treatment with oral antibiotics at least as a trial is safe at this point. She is comfortable going home. I will start her on Keflex. In terms of her dark stool, this only happened one time and she was unable to give a stool specimen here. We discussed rectal examination but given the fact that her hemoglobin is normal and she has had no further episodes, she would prefer to avoid for now. She has chronic GI issues and is established with a gastroneurologist at [facility]. She will follow-up as soon as possible and return if she has any recurrence of this. It appears that she can safely be discharged at this point. ED Disposition - Plan for ED Patient: Disposition: Home or Assisted Living Diagnosis: UTI (urinary tract infection), Pyelonephritis Instructions: PYELONEPHRITIS, Female (Adult) Prescriptions: Cephalexin [Keflex] 500 mg PO 4X/DAY #40 capsule Referrals: Zeferino Leon MD [Primary Care Provider] -
[2019-08-28] MEDS: 0.9% Normal Saline 1,000 ML 1000 ML IV (12:24)
[2019-08-28] MEDS: Morphine 4 MG/ML Syringe IV (12:40)
[2019-08-28] MEDS: Ondansetron 4 MG/2 ML Vial IV (12:40)
[2019-08-28] MEDS: Cephalexin 250 MG Capsule 500 MG PO (14:21)
== END 2019-08-28 14:34 | disposition home or self-care (01) ==
PROVIDERS: Emergency Provider Emergency Medicine; Family Provider Family Medicine; PCP Family Medicine
DX: N12 Tubulo-interstitial nephritis, not specified as acute or chronic (principal); Z82.49 Family history of ischemic heart disease and other diseases of the circulatory system; Z90.49 Acquired absence of other specified parts of digestive tract; Z87.442 Personal history of urinary calculi; M54.9 Dorsalgia, unspecified; G89.29 Other chronic pain
CPT/HCPCS: 74176; 80048; 80076; 81001; 83690; 84703; 85025; 87086; 87088; 99284; J7030; J2405

== ENCOUNTER 2019-08-31 16:14 | Outpatient (RCR) | payer OTHER, SELFPAY | END 2019-08-31 23:59 | disposition home or self-care (01) | LOC: NS 16:14 | PROVIDERS: Family Provider Family Medicine; PCP Family Medicine; Visit Provider Family Medicine | DX: Z71.3 Dietary counseling and surveillance (principal); E11.9 Type 2 diabetes mellitus without complications; Z79.4 Long term (current) use of insulin | CPT/HCPCS: 97803 ==

== ENCOUNTER 2019-09-24 05:29 | Emergency (ER) | payer OTHER, SELFPAY ==
[2019-09-24 05:30] VITALS: BP 121/78; PULSE 66; RESP 16; TEMP 36.5; O2SAT 98; BMI 45.3
--- NOTE | 2019-09-24 05:33 | EKG12_ITS ---
Test Reason : Blood Pressure : / mmHG Vent. Rate : 061 BPM Atrial Rate : 061 BPM P-R Int : 150 ms QRS Dur : 088 ms QT Int : 474 ms P-R-T Axes : 000 017 094 degrees QTc Int : 477 ms Normal sinus rhythm Low voltage QRS Abnormal QRS-T angle, consider primary T wave abnormality Abnormal ECG Confirmed by NIKKO SHEARER, XIAO ([id number]), clinical editor STEPHANIE FONTAINE ([id number]) on 09/28/2019 9:14:44 AM Referred By: DEEPAK Confirmed By:ENRIQUE EL MD
[2019-09-24 05:38] VITALS: BP 121/78; PULSE 64; RESP 15; TEMP 36.5; O2SAT 98
[2019-09-24 05:54] LABS: Absolute Lymphocyte Count 2.39 X10^3/uL (0.83-4.51); Basophil# 0.06 X10^3/uL; Basophil% 0.6 % (0-1); Eosinophil# 0.28 X10^3/uL; Hematocrit 38.2 % (37-47); Hemoglobin 12.8 g/dL (12.0-15.0); Lymphocyte # 2.39 X10^3/ul (4.0); Lymphocyte % 25.5 % (19-41); Mean Corp Hgb Conc 33.5 g/dL (32-36); Mean Corpuscular Hgb 30.5 pg (27.0-32.0); Mean Corpuscular Volume 91.2 fL (81-99); Mean Platelet Vol. 9.1 fl (6.2-12.0); Monocyte# 0.51 X10^3/uL; Monocyte% 5.4 % (0-10); NRBC Flagged by Analyzer 0 % (0-5); Neutrophil # 6.03 X10^3/uL (2.7-7.7); Neutrophil % 64.2 % (47-70); Platelet Count 213 K/mm3 (150-450); RBC Distribution Width CV 13.7 % (11.6-14.6); RBC Distribution Width SD 45.4 fl (35.1-43.9); Red Blood Count 4.19 M/mm3 (4.2-5.4); White Blood Count 9.4 K/mm3 (4.4-11.0)
[2019-09-24] MEDS: 0.9% Normal Saline 1,000 ML 999 ML IV (05:55)
--- NOTE | 2019-09-24 05:55 | ED.DCSUM_ITS ---
History of Present Illness Chief Complaint: Nausea/Vomiting/Diarrhea Informant: Patient - Abdominal Pain/Flank Pain Onset: Yesterday Context: Gradual Onset Timing: Continuous Quality: Cramping Location: Diffuse Current Severity: Mild Maximum Severity: Moderate Worsened by: Nothing Relieved by: Nothing - Nausea/Vomiting/Emesis GI Symptom: Nausea, Vomiting Onset: Today Quality: Nonbilious. Negative for: Blood streaks, Coffee ground, Hematemesis Severity: Mild - Diarrhea/Melena/Hematochezia GI Symptom: Diarrhea Onset: Today Stool Quality: Loose. Negative for: Black, Maroon, BJ per rectum Severity: Mild Associated Symptoms: Negative for: Dysuria, Frequency, Hematuria, Urgency Narrative: Patient is a 39-year-old female with history of migraine headaches, nonalcoholic hepato-steatosis, pyelonephritis, hypertension, obesity, vertigo, chronic back pain, and anxiety/depression presenting with headache as well as GI symptoms. Patient states she developed a migraine headache last night. She took some medication before going to bed for this but she cannot recall what it was. When patient woke up this morning her headache was still there. She states this is a little unusual for her. She does have associated photophobia. The headache is around her whole head. She denies any vision changes, numbness or weakness. When she woke up she also felt nauseous and had an episode of vomiting. She also had an episode of diarrhea. Patient states she feels often like something is wrong with her. She also states she feels a little dizzy. She denies chest pain but states she feels that her heart was racing while she was sleeping. Patient denies any swelling of her legs.Patient denies any abdominal pain currently. She states she does have intermittent cramping abdominal pain right before she has diarrhea. She denies any black or blood in her stool. Patient is also concerned that she might have a kidney infection. She states last time she felt this way she was diagnosed with a kidney infection. She denies any urinary symptoms currently. She denies any fever or chills. Denies any associated shortness of breath, skin changes or rash. Patient comments that she was supposed to follow-up with a GI doctor for stomach problem but she canceled her appointment because she had been feeling better. Prior similar symptoms: Yes Recent Illness/Hospitalization: No Past Medical History - Allergies and Home Meds Allergies/Adverse Reactions: Allergies STEROIDS Allergy (Uncoded 09/24/19 05:38) Hives Primary Care Physician: Zeferino Leon MD [Primary Care Provider] - Past Medical History: - - migraine headaches, nonalcoholic hepato-steatosis, pyelonephritis, hypertension, obesity, vertigo, chronic back pain, and anxiety/depression Surgical History: cholecystectomy Smoking Status: Never smoker - Family History Paternal Family History: Family History (Last Reviewed 09/08/19 @ 13:56 by Berna Mahan) Father Diabetes Family History: Reports: Diabetes, High Cholesterol, Heart Disease, Hypertension Maternal Family History: Family History (Last Reviewed 09/08/19 @ 13:56 by Berna Mahan) Father Diabetes Family History: Reports: - Review of Systems General: Reports: Malaise. Denies: Chills, Fever, Sweats Eyes: Reports: - - Photophobia. Denies: Visual changes - bilaterally, Diplopia ENT: Denies: Rhinorrhea, Sore throat Cardiovascular: Denies: Chest pain, Palpitations Respiratory: Denies: Dyspnea, Cough, Dyspnea on exertion Gastrointestinal: Reports: Abdominal pain, Nausea, Vomiting, Diarrhea. Denies: Melena, Hematochezia Genitourinary: Denies: Dysuria, Hematuria, Frequency Musculoskeletal: Denies: Back pain, Extremity Pain Skin: Denies: Rash, Wounds Neurological: Reports: Headache. Denies: Weakness, Numbness Physical Exam Vital Signs/Narrative: Vital Signs Temp Pulse Resp BP Pulse Ox 09/24/19 05:38 97.7 F L 64 15 121/78 H 98 09/24/19 05:30 97.7 F L 66 16 121/78 H 98 Inital Vital Signs reviewed: Yes General: Well nourished, Well developed, Obese, No Acute Distress Head: Normocephalic, Atraumatic Eyes: Perrl, EOMI ENT: Moist mucous membranes, No rhinorrhea, TM's clear Neck: Supple, Nontender, No lymphadenopathy, - - No meningeal signs Cardiovascular: Regular rate, Regular rhythm, No murmurs Respiratory: No distress, CTA bilaterally, Chest nontender Abdomen: Soft, Nontender, Nondistended, Normal bowel sounds. Negative for: Guarding, Rebound tenderness Back: Nontender, Normal Inspection. Negative for: CVA tenderness Extremities: Nontender, No edema Skin: Normal color, No rash Neurological: Alert, Oriented x3, Cranial nerves II-XII grossly intact, Normal Strength, Normal Sensation Psychological: Normal affect, Normal Mood Diagnostic/Tx/Re-eval Laboratory Data 09/24/19 09/24/19 09/24/19 05:45 05:45 06:01 WBC 9.4 RBC 4.19 L Hgb 12.8 Hct 38.2 MCV 91.2 MCH 30.5 MCHC 33.5 RDW Std Deviation 45.4 H RDW Coeff of Itzel 13.7 Plt Count 213 MPV 9.1 Immature Gran % (Auto) 1.300 H Neut % (Auto) 64.2 Lymph % (Auto) 25.5 [place]ower % (Auto) 5.4 Eos % (Auto) 3.0 Baso % (Auto) 0.6 Absolute Neuts (auto) 6.0 Absolute Lymphs (auto) 2.39 Nucleated RBC % 0 Sodium 137 Potassium 4.0 Chloride 102 Carbon Dioxide 24.0 Anion Gap 11 BUN 15 Creatinine 0.77 Estim Creat Clear Calc 97.28 Est GFR (MDRD) Af Amer 108 Est GFR (MDRD) Non-Af 89 BUN/Creatinine Ratio 19.4 Glucose 161 H Calcium 8.2 L Total Bilirubin 0.70 AST 37 ALT 57 H Alkaline Phosphatase 75 Troponin I < 0.015 Total Protein 7.9 Albumin 3.7 Globulin 4.2 Albumin/Globulin Ratio 0.9 Lipase 117 Urine Color Yellow Urine Clarity Clear Urine pH 5.0 Ur Specific [place] 1.030 Urine Protein 100 H Urine Glucose (UA) Normal Urine Ketones 5 H Urine Occult Blood 10 H Urine Nitrite Negative Urine Bilirubin 1 H Urine Urobilinogen Normal Ur Leukocyte Esterase 25 H Urine RBC 0-5 SEEN Urine WBC 0-5 SEEN Ur Squamous Epith Cells 0-5 SEEN Calcium Oxalate Crystal RARE Urine Bacteria 0 SEEN Urine Mucus 0 SEEN Urine Test Negative - Rhythm Strip Rhythm Strip: Sinus Rhythm Rate: 61 Ectopy: None - EKG Initial EKG Interpretation: Sinus Rhythm, - - Normal sinus rhythm at a rate of 61 HI interval 150 QRS 88 QT/QTc 474/477 Normal axis Nonspecific T wave inversion in aVL No change compared to prior EKGs - Medical Decision Making She is evaluated for headache as well as GI complaints. She appears nontoxic in no acute distress. Vital signs are normal. She also listed a sensation of palpitations and chest discomfort. Her EKG is normal. Patient is PE RC negative. I do not suspect PE or ACS. She currently does not have any chest pain or discomfort. Patient is a history of migraines. But this is typical of her migraines except that it is a little bit more intense than her normal. She is a normal neurologic exam. I do not think a head CT is indicated at this time. She does not have any meningeal signs. While patient endorses vomiting and diarrhea as well as some mild cramping abdominal pain she has a soft and b enign physical exam. She does not have CVA tenderness. She does not have suprapubic tenderness. Lab work is largely unremarkable. Urinalysis is not consistent with pyelonephritis or UTI. I do not think a CT the abdomen pelvis is indicated at this time based on her symptoms and physical exam. In addition patient had a CT abdomen and pelvis within the last month which was grossly normal. Patient is treated symptomatically with migraine cocktail which included Toradol, Compazine and Benadryl. She is also given IV fluids. On reevaluation she states she is feeling better and she is resting comfortably. Patient does not have any further vomiting or diarrhea while she is in the emergency room. She is given a work note for today. She is instructed to follow-up with her GI doctor as well as her PCP as needed. She will be discharged home with a course of Zofran as needed for nausea. Patient is counseled on signs and symptoms requiring return to the emergency room. Patient verbalizes agreement and understand this plan. Patient discharged home in stable and improved condition. ED Disposition - Plan for ED Patient: Disposition: Home or Assisted Living Diagnosis: Headache, Nausea vomiting and diarrhea Instructions: VOMITING AND DIARRHEA, Nonspecific (Adult), ED, Migraine (Classical) Prescriptions: Ondansetron [Zofran Odt] 4 mg PO Q8H PRN PRN #10 tab PRN Reason: Nausea Prescription Printed Referrals: Zeferino Leon MD [Primary Care Provider] -
[2019-09-24] MEDS: DiphenhydrAMINE 50 MG/ML Syringe IV (05:56)
[2019-09-24] MEDS: proCHLORPERazine 10 MG/2 ML Vial IV (05:56)
[2019-09-24] MEDS: Ketorolac 30 MG/ML Syringe IV (05:56)
[2019-09-24 06:05] LABS: Bacteria 0 SEEN /hpf (None Seen); Mucous, Urine 0 SEEN /hpf (<or=2+)
[2019-09-24 06:12] LABS: Color, Urine Yellow (Yellow); Glucose, Dipstick Normal (Normal); Ketone-Dipstick 5 mg/dl (Negative); Leukocyte Esterase-Dipstick 25 /ul (Negative); Nitrite-Dipstick Negative (Negative); Occult Blood-Urine 10 /ul (Negative); Protein-Dipstick 100 mg/dl (Negative); Urine Clarity Clear (Clear); Urine Urobilinogen Normal (Normal)
[2019-09-24 06:13] LABS: Internal QC Validated? YES +Cl - CLEAR BKGD; Pregnancy, Urine Negative Negative
[2019-09-24 06:15] LABS: Urine Bilirubin Dipstick 1 mg/dL (Negative)
[2019-09-24 06:21] LABS: ALB/GLOB Ratio 0.9 RATIO (0.9-2.4); AST(SGOT) 37 U/L (15-37); Alanine Aminotransfer ALT/SGPT 57 U/L (13-56); Albumin, Serum 3.7 g/dL (3.2-5.0); Alkaline Phosphatase 75 U/L (45-117); Anion Gap 11 (5-15); BUN 15 mg/dL (7-18); BUN/Creat Ratio 19.4 RATIO (10-20); Calcium,Total 8.2 mg/dL (8.5-10.1); Chloride 102 mmol/L (98-107); Creatinine, Serum 0.77 mg/dL (0.55-1.02); EST Glomerular Filtration Rate 89 mL/min (>60); Est Glom Filt Rate - Afr Amer 108 mL/min (>60); Estimated Creatinine Clearance 97.28 ml/min; Globulin 4.2 g/dL (2.2-4.2); Glucose 161 mg/dL (74-106); Lipase 117 U/L (73-393); Protein, Total 7.9 g/dL (6.4-8.2); Sodium Level 137 mmol/L (136-145)
[2019-09-24 06:29] LABS: Calcium Oxalate Crystals Ur RARE /hpf (<or=2+); Red Blood Cells-Urine 0-5 SEEN /hpf (0-5); Squamous Epithelial Cells - UA 0-5 SEEN /hpf (5-10); White Blood Cells 0-5 SEEN /hpf (0-5)
[2019-09-24 07:26] VITALS: BP 121/74; PULSE 71; RESP 15; O2SAT 98
== END 2019-09-24 07:28 | disposition home or self-care (01) ==
PROVIDERS: Emergency Provider Emergency Medicine; Family Provider Family Medicine; PCP Family Medicine
DX: R11.2 Nausea with vomiting, unspecified (principal); R51 Headache; R19.7 Diarrhea, unspecified; E66.9 Obesity, unspecified; F32.9 Major depressive disorder, single episode, unspecified; F41.9 Anxiety disorder, unspecified; G89.29 Other chronic pain; I10 Essential (primary) hypertension; Z82.49 Family history of ischemic heart disease and other diseases of the circulatory system; Z90.49 Acquired absence of other specified parts of digestive tract
CPT/HCPCS: 80053; 81001; 81025; 83690; 84484; 85025; 93005; 96361; 96374; 96375; 99283; J7030; A4216

== ENCOUNTER → 2019-10-09 06:22 | Outpatient (CLI) | payer OTHER, SELFPAY ==
[2019-09-24 05:30] VITALS: BMI 45.3
[2019-10-09 07:37] LABS: Absolute Lymphocyte Count 2.55 X10^3/uL (0.83-4.51); Absolute Neutrophil Count 6.7 X10^3/uL (2.0-7.7); Basophil# 0.07 X10^3/uL; Basophil% 0.7 % (0-1); Eosinophils% 2.9 % (0-5); Hemoglobin 13.6 g/dL (12.0-15.0); Lymphocyte # 2.55 X10^3/ul (4.0); Mean Corpuscular Hgb 31.1 pg (27.0-32.0); Mean Corpuscular Volume 91.3 fL (81-99); Mean Platelet Vol. 9.8 fl (6.2-12.0); Monocyte# 0.45 X10^3/uL; Monocyte% 4.4 % (0-10); NRBC Flagged by Analyzer 0 % (0-5); Neutrophil # 6.71 X10^3/uL (2.7-7.7); Neutrophil % 65.8 % (47-70); Platelet Count 205 K/mm3 (150-450); RBC Distribution Width CV 13.5 % (11.6-14.6); Red Blood Count 4.38 M/mm3 (4.2-5.4); White Blood Count 10.2 K/mm3 (4.4-11.0)
[2019-10-09 07:53] LABS: Hemoglobin A1c 6.2 % (4.2-6.3)
[2019-10-09 08:06] LABS: ALB/GLOB Ratio 1.1 RATIO (0.9-2.4); AST(SGOT) 38 U/L (15-37); Alanine Aminotransfer ALT/SGPT 49 U/L (13-56); Alkaline Phosphatase 88 U/L (45-117); Anion Gap 9 (5-15); BUN 15 mg/dL (7-18); BUN/Creat Ratio 20.5 RATIO (10-20); Chloride 104 mmol/L (98-107); Cholesterol 194 mg/dL (200); Creatinine, Serum 0.73 mg/dL (0.55-1.02); EST Glomerular Filtration Rate 95 mL/min (>60); Est Glom Filt Rate - Afr Amer 115 mL/min (>60); Globulin 3.8 g/dL (2.2-4.2); Glucose 182 mg/dL (74-106); High Density Lipoprotein 30 mg/dL; Potassium 4.2 mmol/L (3.5-5.1); Protein, Total 7.8 g/dL (6.4-8.2); Sodium Level 137 mmol/L (136-145); Triglycerides 429 mg/dL
== END ==
LOC: LAB.FUTURE 06:24 → LAB 06:49
PROVIDERS: Family Provider Family Medicine; PCP Family Medicine; Referring Provider Family Medicine; Visit Provider Family Medicine
DX: E11.9 Type 2 diabetes mellitus without complications (principal)
CPT/HCPCS: 36415; 80053; 80061; 82043; 82570; 83036; 85025

== ENCOUNTER 2019-10-21 15:28 | Observation (INO) | payer OTHER, SELFPAY ==
[2019-10-21] VITALS (7 sets, daily range): BP systolic 136–148; BP diastolic 78–89; PULSE 66–79; RESP 15–18; TEMP 36.4–36.7; O2SAT 95–98; BMI 45.2; BMI 44.6
--- NOTE | 2019-10-21 15:38 | EKG12_ITS ---
Test Reason : CP/SOB Blood Pressure : / mmHG Vent. Rate : 072 BPM Atrial Rate : 072 BPM P-R Int : 142 ms QRS Dur : 088 ms QT Int : 444 ms P-R-T Axes : 008 003 052 degrees QTc Int : 486 ms Normal sinus rhythm Prolonged QT Abnormal ECG Confirmed by NIKKO SHEARER, XIAO ([id number]), newspaper editor managing GRAZYNA BLOOD ([id number]) on 10/26/2019 12:49:27 PM Referred By: Yayo Mohamud Confirmed By:ENRIQUE EL MD
--- NOTE | 2019-10-21 15:39 | ED.VIS.GEN ---
History of Present Illness Chief Complaint: Shortness of Breath Detail of Chief Complaint: Dyspnea on exertion and chest pain as well Informant: Patient Onset: Days - 2 days ago October 19 Context: Sudden Onset Timing: Intermittent Quality: Dyspnea with activity, intermittent nonproductive cough and pleuritic chest Location: Not applicable Current Severity: Mild Maximum Severity: Moderate Worsened by: Exertion Relieved by: Better with rest Associated Symptoms: No URI symptoms, no leg pain, swelling or discoloration Narrative: Patient is a 39-year-old woman with history of type 2 diabetes x1 year and elevated triglyceride, 900, who presents from physician's office because of shortness of breath, dyspnea on exertion and chest pain that has pleuritic component. She has no history of PE or DVT. She denies leg pain, swelling discoloration. She has no risk factors for PE. She denies fever, chills or night sweats. She denies rhinorrhea, congestion or postnasal drainage. She complains of dry throat not sore throat. There is no history of trauma. She denies GI symptoms. She denies urologic symptoms. She states she had a stress test 2 years ago that was negative. Prior similar symptoms: No Recent Illness/Hospitalization: No - Past Medical History (1) Elevated triglycerides with high cholesterol Status: Acute (2) Nephrolithiasis Status: Acute (3) Nonalcoholic hepatosteatosis Status: Chronic (4) Obesity Status: Chronic (5) Type 2 diabetes mellitus Status: Chronic (6) History of obstructive sleep apnea Status: Acute Past Medical History - Allergies and Home Meds Allergies/Adverse Reactions: Allergies STEROIDS Allergy (Uncoded 10/21/19 15:32) [facility] Primary Care Physician: Zeferino Leon MD [Primary Care Provider] - Prior records reviewed: Yes Surgical History: cholecystectomy Lives: Alone Smoking Status: Never smoker Alcohol: None Drugs: None - Family History Paternal Family History: Family History (Last Reviewed 09/29/19 @ 15:27 by Berna Mahan) Father Diabetes Family History: Reports: Diabetes, High Cholesterol, Heart Disease, Hypertension Maternal Family History: Family History (Last Reviewed 09/29/19 @ 15:27 by Berna Mahan) Father Diabetes Family History: Reports: - Review of Systems General: Reports: Malaise. Denies: Chills, Fever, Subjective, Sweats, Weight loss Eyes: Denies: Visual changes - bilaterally, Blurred Vision - bilaterally ENT: Denies: Bilateral ear pain, Rhinorrhea, Sore throat Cardiovascular: Denies: Chest pain, Palpitations, Heart racing Respiratory: Reports: Dyspnea, Cough, Dyspnea on exertion. Denies: Sputum, Orthopnea, Paroxysmal nocturnal dyspnea Gastrointestinal: Denies: Abdominal pain, Nausea, Vomiting, Diarrhea, Melena, Hematochezia Genitourinary: Denies: Dysuria, Hematuria, Frequency Musculoskeletal: Denies: Myalgias, Arthralgias, Neck pain, Back pain, Swelling, Extremity Pain, -, - Skin: Denies: Rash, Wounds Neurological: Denies: Headache, Weakness, Numbness Hematologic: Denies: Easy bruising, Easy bleeding Allergy: Denies: Uticaria Physical Exam Vital Signs/Narrative: Vital Signs Temp Pulse Resp BP Pulse Ox 10/21/19 15:29 98.1 F 70 15 148/78 H 98 Inital Vital Signs reviewed: Yes General: Well nourished, Well developed, Obese, No Acute Distress Head: Normocephalic, Atraumatic. Negative for: Trauma, Tenderness Eyes: Perrl, EOMI. Negative for: Pale conjunctiva, Scleral icterus ENT: Moist mucous membranes, No rhinorrhea. Negative for: Nasal congestion, Sinus tenderness Neck: Supple, Nontender, No lymphadenopathy, No JVD Cardiovascular: Regular rate, Regular rhythm, No murmurs, Normal S1, Normal S2 Respiratory: No distress, CTA bilaterally, Chest nontender Abdomen: Soft, Nontender, Nondistended, Normal bowel sounds Back: Nontender, Normal Inspection. Negative for: CVA tenderness Extremities: Nontender, No edema, - - There is no asymmetry, swelling, discoloration, leg vein distention, palpable cords or tenderness along the distribution of the deep venous system. Skin: Normal color, No rash, No Trauma. Negative for: Cyanosis, Diaphoresis, Jaundice Neurological: Alert, Oriented x3, Cranial nerves II-XII grossly intact, Normal Strength, Normal Sensation, Normal DTR Psychological: Normal affect, Normal Mood Diagnostic/Tx/Re-eval Chest X-Ray - ED: 2 View, Read by ED Physician, Normal, Heart, Lungs, Mediastinum, Bony Structures, No Acute Disease Impressions Chest X-Ray 10/21/19 16:00 IMPRESSION: Less than optimal inspiratory effort but no acute cardiopulmonary pathology Electronically Signed: Noe Michael MD at 16:22 EST , Service support , Chest CTA 10/21/19 16:13 IMPRESSION: No definitive evidence for pulmonary emboli however there are linear defects within the subsegmental vessels to both lower lobes due to motion artifact limiting evaluation. If strong clinical suspicion for pulmonary embolus Doppler scan of the deep venous system of lower extremities and possibly nuclear ventilation/perfusion study recommended for further assessment Mild generalized interstitial thickening most pronounced in the lower lobes Electronically Signed: Noe Michael MD at 17:44 EST , Service support , 10/21/19 16:00 Chest PA and Lateral [RAD] Stat 10/21/19 16:13 CTA Chest W/WO Contrast [CT] Stat Laboratory Results 10/21/19 10/21/19 10/21/19 15:45 15:45 15:45 WBC 8.6 RBC 4.25 Hgb 12.9 Hct 38.8 MCV 91.3 MCH 30.4 MCHC 33.2 RDW Std Deviation 45.5 H RDW Coeff of Itzel 13.7 Plt Count 210 MPV 9.3 Immature Gran % (Auto) 1.700 H Neut % (Auto) 59.9 Lymph % (Auto) 30.4 [place] % (Auto) 4.8 Eos % (Auto) 2.7 Baso % (Auto) 0.5 Absolute Neuts (auto) 5.2 Absolute Lymphs (auto) 2.62 Nucleated RBC % 0 D-Dimer Quant (PE/DVT) 1.19 H* Sodium 140 Potassium 3.9 Chloride 108 H Carbon Dioxide 26.0 Anion Gap 6 BUN 11 Creatinine 0.75 Estim Creat Clear Calc 99.87 Est GFR (MDRD) Af Amer 112 Est GFR (MDRD) Non-Af 92 BUN/Creatinine Ratio 14.7 Glucose 100 Calcium 8.9 Troponin I < 0.015 Patient does not have URI symptoms and there is a concern for pulmonary embolus she will receive 1 mg/kg of Lovenox and will discuss case with hospitalist for her to stay overnight and have VQ scan in the morning. - EKG Initial EKG Interpretation: Sinus Rhythm - Sinus rhythm with a ventricular rate of 72. VT interval is 142 ms. QRS duration 88 ms. QT duration 444 ms and is prolonged. This is not a new finding. [place] is normal. Prior: Unchanged - Medical Decision Making Diagnosis includes atypical presentation for cardiac disease, pulmonary embolus, bronchitis, pneumonia, cardiomyopathy. To evaluate patient's symptoms EKG, chest x-ray, BMP, CBC, troponin and d-dimer were obtained. Patient's vital signs are unremarkable. Then unremarkable 2 view chest x-ray and an elevated d-dimer CTA was ordered at 1613. ED Disposition - Plan for ED Patient: Disposition: Acute Care Hospital [facility] Diagnosis: Dyspnea, History of type 2 diabetes mellitus Referrals: Zeferino Leon MD [Primary Care Provider] -
--- NOTE | 2019-10-21 16:00 | RAD_ITS ---
STUDY: X-RAY CHEST REASON FOR EXAM: Female, 39 years old. Dyspnea on exertion TECHNIQUE: PA and lateral COMPARISON: March 31, 2019 FINDINGS: There is less than optimal inspiratory effort however the lungs are clear.. There is no demonstrated pleural abnormality. Normal size heart. Normal mediastinum and osman. Normal visualized pulmonary arteries. Normal visualized aortic arch and descending thoracic aorta. Normal visualized thoracic spine. Normal visualized ribs, clavicles, and shoulders. There is no demonstrated abnormality of the visualized soft tissue structures of the upper abdomen. RAD/Chest PA and Lateral IMPRESSION: Less than optimal inspiratory effort but no acute cardiopulmonary pathology Electronically Signed: Noe Michael MD at 16:22 EST , Service support ,
[2019-10-21 16:02] LABS: Absolute Lymphocyte Count 2.62 X10^3/uL (0.83-4.51); Absolute Neutrophil Count 5.2 X10^3/uL (2.0-7.7); Basophil# 0.04 X10^3/uL; Basophil% 0.5 % (0-1); Eosinophil# 0.23 X10^3/uL; Eosinophils% 2.7 % (0-5); Hematocrit 38.8 % (37-47); Hemoglobin 12.9 g/dL (12.0-15.0); Lymphocyte # 2.62 X10^3/ul (4.0); Lymphocyte % 30.4 % (19-41); Mean Corp Hgb Conc 33.2 g/dL (32-36); Mean Corpuscular Hgb 30.4 pg (27.0-32.0); Mean Corpuscular Volume 91.3 fL (81-99); Mean Platelet Vol. 9.3 fl (6.2-12.0); Monocyte# 0.41 X10^3/uL; Monocyte% 4.8 % (0-10); NRBC Flagged by Analyzer 0 % (0-5); Neutrophil # 5.18 X10^3/uL (2.7-7.7); Neutrophil % 59.9 % (47-70); Platelet Count 210 K/mm3 (150-450); RBC Distribution Width CV 13.7 % (11.6-14.6); RBC Distribution Width SD 45.5 fl (35.1-43.9); Red Blood Count 4.25 M/mm3 (4.2-5.4); White Blood Count 8.6 K/mm3 (4.4-11.0)
[2019-10-21 16:11] LABS: D-Dimer Quantitative (DVT/PE) 1.19 FEU/ug/m (0.27-0.49)
--- NOTE | 2019-10-21 16:11 | ED.RN ---
ddimer 1.19 called from the lab . dr graves aware
--- NOTE | 2019-10-21 16:13 | CT_ITS ---
STUDY: CTA CHEST REASON FOR EXAM: Female, 39 years old. Short of breath elevated d-dimer RADIATION DOSAGE (If Supplied By Facility): CTDIvol = ( 23.35 ) mGy, DLP = ( 436.85 ) mGycm TECHNIQUE: The examination was performed with the intravenous administration of 100 CC ISOVUE 370. Post-processing of the angiographic images was performed, with multiplanar reformation and 3D reconstruction. Individualized dose optimization techniques were used for this CT. COMPARISON: None. FINDINGS: Normal enhancement of the main pulmonary artery and right and left pulmonary arteries. The interlobar and segmental vessels are well opacified without evidence for intraluminal clot. The subsegmental vessels demonstrate multiple linear filling defects likely due to motion artifact. There is no definitive evidence for intraluminal clot however if strong clinical suspicion for pulmonary embolus would recommend Doppler scan of the deep venous system of lower extremities and possibly pulmonary ventilation/perfusion study for further evaluation.. Normal thoracic aorta and visualized great vessels. There is no demonstrated aortic dissection. Normal heart and pericardium. Normal mediastinum. Normal hilar regions. Normal visualized trachea and bronchi. The lungs are well expanded. There appears to be mild nonspecific interstitial thickening most pronounced in the lower lobes.. No focal infiltration or pulmonary nodule Normal pleura. Normal chest wall structures. Normal osseous structures. Normal visualized upper abdomen. CT/CTA Chest W/WO Contrast IMPRESSION: No definitive evidence for pulmonary emboli however there are linear defects within the subsegmental vessels to both lower lobes due to motion artifact limiting evaluation. If strong clinical suspicion for pulmonary embolus Doppler scan of the deep venous system of lower extremities and possibly nuclear ventilation/perfusion study recommended for further assessment Mild generalized interstitial thickening most pronounced in the lower lobes Electronically Signed: Noe Michael MD at 17:44 EST , Service support ,
[2019-10-21 17:43] LABS: Anion Gap 6 (5-15); BUN 11 mg/dL (7-18); BUN/Creat Ratio 14.7 RATIO (10-20); Calcium,Total 8.9 mg/dL (8.5-10.1); Chloride 108 mmol/L (98-107); Creatinine, Serum 0.75 mg/dL (0.55-1.02); EST Glomerular Filtration Rate 92 mL/min (>60); Est Glom Filt Rate - Afr Amer 112 mL/min (>60); Estimated Creatinine Clearance 99.87 ml/min; Glucose 100 mg/dL (74-106); Potassium 3.9 mmol/L (3.5-5.1); Sodium Level 140 mmol/L (136-145)
[2019-10-21] MEDS: Enoxaparin 120 MG/0.8 ML Syringe SC (18:45)
--- NOTE | 2019-10-21 19:25 | HP.PCM_ITS ---
Problem List (1) Acute respiratory insufficiency Status: Acute (2) Acute bronchitis Status: Acute (3) Calculus of left kidney Status: Acute (4) Elevated triglycerides with high cholesterol Status: Acute (5) History of obstructive sleep apnea Status: Acute (6) Dyspnea Status: Acute (7) History of type 2 diabetes mellitus Status: Acute (8) Nonalcoholic hepatosteatosis Status: Chronic (9) Hydroureter, left Status: Acute (10) Hydronephrosis, left Status: Acute (11) Type 2 diabetes mellitus Status: Chronic (12) Hypertension Status: Chronic Qualifiers: Hypertension type: essential hypertension Qualified Code(s): I10 - Essential (primary) hypertension (13) Obesity Status: Chronic Qualifiers: Obesity type: due to excess calories (14) Nephrolithiasis Status: Acute (15) Pyelonephritis Status: Acute (16) Acute kidney injury Status: Acute (17) Dehydration Status: Acute (18) Segmental and somatic dysfunction of lumbar region Status: Acute (19) Vertigo Status: Chronic (20) Lumbosacral spondylosis Status: Chronic (21) Lumbar facet arthropathy Status: Chronic (22) Left upper quadrant abdominal pain Status: Chronic (23) Dysuria Status: Resolved (24) Urinary tract infection Status: Resolved (25) Segmental and somatic dysfunction of pelvic region Status: Chronic (26) Segmental and somatic dysfunction of thoracic region Status: Chronic (27) Radiculopathy of lumbosacral region Status: Chronic (28) Disc displacement, lumbar Status: Chronic (29) Degeneration of intervertebral disc of lumbosacral region Status: Chronic History of Present Illness Date of Admission: 10/21/19 Chief Complaint: Shortness of breath worsening for 4 days. The patient is a 39 year old F with history of sleep apnea with multiple comorbidities including obstructive sleep apnea on CPAP, type 2 diabetes mellitus came to ER with shortness of breath, progressively worsening for last 4 days. On Saturday she felt better after she put CPAP but got worse on Saturday and today. Patient also complaining of pleuritic chest pain mainly on coughing and deep inspiration. 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 She also complains of URI symptoms including sinus congestion/mild sore throat and postnasal drip. In ED, vital signs were stable. Temperature 97.5. Pulse ox 98% on room air. Chest x-ray was done which shows suboptimal inspiratory effort but no acute cardiopulmonary pathology. Subsequently CTPA was done for positive d-dimer and reported no definite evidence for PE but linear defects within subsegmental vessels on both lower lobes due to motion artifact limiting evaluation. Recommended VQ scan. Troponin is normal. EKG normal sinus rhythm at 72 bpm with QTC 486 ms. She had history of prolonged QTC. Last EKG from September 2019 reported QTC 477 ms. Sinus rhythm at 61 beats per run. She recently had a stress echo done in April 2019 reported as negative stress echo. Past Medical History Past Medical History (Chronic Problems): Chronic Problems (Last Reviewed 09/29/19 @ 15:27 by Berna Mahan) Nonalcoholic hepatosteatosis (Chronic) Type 2 diabetes mellitus (Chronic) Hypertension (Chronic) Obesity (Chronic) Vertigo (Chronic) Lumbosacral spondylosis (Chronic) Lumbar facet arthropathy (Chronic) Left upper quadrant abdominal pain (Chronic) Segmental and somatic dysfunction of pelvic region (Chronic) Segmental and somatic dysfunction of thoracic region (Chronic) Radiculopathy of lumbosacral region (Chronic) Disc displacement, lumbar (Chronic) Degeneration of intervertebral disc of lumbosacral region (Chronic) Medical History: Medical History (Last Reviewed 09/29/19 @ 15:27 by Berna Mahan) gall bladder removal Allergies STEROIDS Allergy (Uncoded 10/21/19 15:32) Hives Home Medications: Ambulatory Orders Medication Instructions Recorded Lorazepam [Ativan] 0.5 mg PO DAILY PRN PRN 10/27/13 Albuterol Inhaler [Ventolin Hfa] 1 - 2 puff INHALATION Q6H PRN PRN 10/27/15 Tizanidine HCl [Zanaflex] 4 mg PO DAILY PRN PRN 04/29/17 Erenumab-Aooe [Aimovig 140 mg IM QMONTH 07/22/18 Autoinjector] Ibuprofen 400 mg PO PRN PRN 07/22/18 Lisinopril [Zestril] 5 mg PO DAILY 02/14/19 Magnesium Oxide [Mag-Ox 400] 400 mg PO DAILYCM #30 tablet 02/17/19 Dicyclomine HCl [Bentyl] 20 mg PO TIDAC #20 cap 05/08/19 Ondansetron [Zofran Odt] 4 mg PO Q8H PRN PRN #10 tab 09/24/19 Surgical History: Surgical History (Last Reviewed 09/29/19 @ 15:27 by Berna Mahan) H/O: Z98.891 Surgical History: cholecystectomy Psychiatric History: Anxiety, Depression 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 Lives: Alone Smoking Status: Never smoker Tobacco Use: Secondhand Alcohol: None Drugs: None - *Family History Paternal Family History: Family History (Last Reviewed 09/29/19 @ 15:27 by Berna Mahan) Father Diabetes History Items: Diabetes, High Cholesterol, Heart Disease, Hypertension Maternal Family History: Family History (Last Reviewed 09/29/19 @ 15:27 by Berna Mahan) Father Diabetes History Items: - Review of Systems Constitutional: Denies: Chills, Fever, Weight Change Eyes: Reports: Blurred vision HEENT: Denies: Head Aches, Sinus Congestion, Sinus Drainage Cardiovascular: Reports: Chest Pain - Mild chest pain 1-3/10 intensity on coughing and deep inspiration pleuritic in nature.. Denies: Palpitations Respiratory: Reports: Cough, Pleuritic Pain, Shortness of breath at rest, Shortness of breath upon exertion. Denies: Hemoptysis, Sputum production Gastrointestinal: Denies: Abdominal Pain, Nausea, Vomiting Genitourinary: Denies: Dysuria, Frequency, Hematuria, Urgency Musculoskeletal: Reports: Joint Pain. Denies: Joint Tenderness Skin: Denies: Rash, Wounds Neurological: Denies: Numbness, Tingling, Focal weakness Psychiatric: Denies: Anxiety, Depression, Homicidal Ideations, Suicidal Ideations Hematologic/ Lymphatic: Denies: Easy Bruising, Easy Bleeding VTE Information - Inpt Only VTE Present on Admission: No VTE Mechan Device Prophylaxis: None VTE Pharm Prophylaxis ordered?: Yes Patient Problems: Active and Suspected Problems (Last Reviewed 09/29/19 @ 15:27 by Berna Mahan) Dyspnea (Acute) History of type 2 diabetes mellitus (Acute) Acute respiratory insufficiency (Acute) Acute bronchitis (Acute) - Physical Exam Vitals/I&O's: Vital Signs Temp Pulse Resp BP Pulse Ox 98.1 F 72 17 136/89 H 98 10/21/19 15:29 10/21/19 17:31 10/21/19 17:31 10/21/19 17:31 10/21/19 17:31 Oxygen Delivery Method Room Air Weight: 288 lb 12.889 oz Body Mass Index (BMI) 45.2 Finger Stick Blood Glucose 153 General: Alert, Oriented x3, Cooperative HEENT: Atraumatic, PERRLA, EOMI, Normocephalic Oral: Moist Mucosa, No Gingival or Mucosal Lesions/ Ulcerations, Dry Mucosa Neck: Supple, No JVD, Negative Carotid Bruits Lungs: No rhonchi, No wheeze, No rales, Diminished - Entry is diminished bilaterally. Cardiovascular: Regular rate, Regular Rhythm, Normal S1, Normal S2, No murmurs Abdomen: Bowel Sounds Present, Soft, Non Tender, Non-Distended Extremities: No edema, Capillary Refill Less than 3 Seconds Skin: No rashes, No breakdown Musculoskeletal: No Tenderness to Palpation of Joints or Extremities, Arthritic Changes Lymphatic: No Cervical, Supraclavicular, or Inguinal Adenopathy Neurological: Cranial nerves II-XII grossly intact, Neuro grossly intact Psych/Mental Status: Normal Affect, Appropriate Laboratory Results 10/21/19 15:45: WBC 8.6, RBC 4.25, Hgb 12.9, Hct 38.8, MCV 91.3, MCH 30.4, MCHC 33.2, RDW Std Deviation 45.5 H, RDW Coeff of Itzel 13.7, Plt Count 210, MPV 9.3, Immature Gran % (Auto) 1.700 H, Neut % (Auto) 59.9, Lymph % (Auto) 30.4, Yell % (Auto) 4.8, Eos % (Auto) 2.7, Baso % (Auto) 0.5, Absolute Neuts (auto) 5.2, Absolute Lymphs (auto) 2.62, Nucleated RBC % 0 10/21/19 15:45: D-Dimer Quant (PE/DVT) 1.19 H* 10/21/19 15:45: Sodium 140, Potassium 3.9, Chloride 108 H, Carbon Dioxide 26.0, Anion Gap 6, BUN 11, Creatinine 0.75, Estim Creat Clear Calc 99.87, Est GFR (MDRD) Af Amer 112, Est GFR (MDRD) Non-Af 92, BUN/Creatinine Ratio 14.7, Glucose 100, Calcium 8.9, Troponin I < 0.015 Assessment/Plan All Active Problems (Last Reviewed 09/29/19 @ 15:27 by Berna Mahan) Calculus of left kidney (Acute) Elevated triglycerides with high cholesterol (Acute) History of obstructive sleep apnea (Acute) Dyspnea (Acute) History of type 2 diabetes mellitus (Acute) Acute respiratory insufficiency (Acute) Acute bronchitis (Acute) Hydroureter, left (Acute) Hydronephrosis, left (Acute) Nephrolithiasis (Acute) Pyelonephritis (Acute) Acute kidney injury (Acute) Dehydration (Acute) Segmental and somatic dysfunction of lumbar region (Acute) Dysuria (Resolved) Urinary tract infection (Resolved) Near syncope (Resolved) The patient is a 39 year old F with history of sleep apnea with multiple comorbidities including obstructive sleep apnea on CPAP, type 2 diabetes mellitus came to ER with shortness of breath, progressively worsening for last 4 days. On Saturday she felt better after she put CPAP but got worse on Saturday and today. Patient also complaining of pleuritic chest pain mainly on coughing and deep inspiration. 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 She also complains of URI symptoms including sinus congest ion/mild sore throat and postnasal drip. In ED, vital signs were stable. Temperature 97.5. Pulse ox 98% on room air. Chest x-ray was done which shows suboptimal inspiratory effort but no acute cardiopulmonary pathology. Subsequently CTPA was done for positive d-dimer and reported no definite evidence for PE but linear defects within subsegmental vessels on both lower lobes due to motion artifact limiting evaluation. Recommended VQ scan. Troponin is normal. 1. Acute respiratory insufficiency with URI symptom most likely acute bronchitis but rule out PE: Patient d-dimer was 1.19 and CTPA is inconclusive about the subsegmental vessels on both lower lobes probably secondary to motion artifact but needs VQ scan. VQ scan ordered. On empiric Lovenox 1 mg/kg body weight every 12 hourly until PE is ruled out. EKG normal sinus rhythm at 72 bpm with QTC 486 ms. She had history of prolonged QTC. Last EKG from September 2019 reported QTC 477 ms. Sinus rhythm at 61 beats per run. She recently had a stress echo done in April 2019 reported as negative stress echo. Respiratory panel is ordered. CT chest reviewed and does not seem focal consolidation. She does not need antibiotic as she is not having any fever or SIRS symptoms. 2. Recent history of left hydroureter and left hydronephrosis for which she was admitted in February 2019. CT abdomen showed 4 mm left UVJ calculus with mild hydronephrosis and hydroureter and at that time she was discharged with outpatient follow-up with . Later on March 2019, she had a stent placed and passed ureteric stone. Currently stable. 3. Diabetes mellitus type 2: Goal is 100. Accu-Chek before meals and at bedtime daily on NovoLog sliding scale. At home she is on metformin and will hold. 4. Other comorbidities include migraine headache, lumbosacral arthritis with radiculopathy, lumbar disc displacement degeneration arthritis, obstructive sleep apnea and morbid obesity: Patient is CPAP at night and will continue it. Home medication reconciliation done. DVT prophylaxis: Moderate risk, on Lovenox 40 milligrams daily. Laboratory Results 10/21/19 15:45: WBC 8.6, RBC 4.25, Hgb 12.9, Hct 38.8, MCV 91.3, MCH 30.4, MCHC 33.2, RDW Std Deviation 45.5 H, RDW Coeff of Itzel 13.7, Plt Count 210, MPV 9.3, Immature Gran % (Auto) 1.700 H, Neut % (Auto) 59.9, Lymph % (Auto) 30.4, Yell % (Auto) 4.8, Eos % (Auto) 2.7, Baso % (Auto) 0.5, Absolute Neuts (auto) 5.2, Absolute Lymphs (auto) 2.62, Nucleated RBC % 0 10/21/19 15:45: D-Dimer Quant (PE/DVT) 1.19 H* 10/21/19 15:45: Sodium 140, Potassium 3.9, Chloride 108 H, Carbon Dioxide 26.0, Anion Gap 6, BUN 11, Creatinine 0.75, Estim Creat Clear Calc 99.87, Est GFR (MDRD) Af Amer 112, Est GFR (MDRD) Non-Af 92, BUN/Creatinine Ratio 14.7, Glucose 100, Calcium 8.9, Troponin I < 0.015 Clinical Impression(s) from Imaging Studies Chest X-Ray 10/21/19 16:00 IMPRESSION: Less than optimal inspiratory effort but no acute cardiopulmonary pathology Chest CTA 10/21/19 16:13 IMPRESSION: No definitive evidence for pulmonary emboli however there are linear defects within the subsegmental vessels to both lower lobes due to motion artifact limiting evaluation. If strong clinical suspicion for pulmonary embolus Doppler scan of the deep venous system of lower extremities and possibly nuclear ventilation/perfusion study recommended for further assessment Mild generalized interstitial thickening most pronounced in the lower lobes Code Visit OBSV E&M: 77412 Initial observation care L3
[2019-10-21] MEDS: Lactated Ringers 1,000 ML 100 ML IV (21:15)
[2019-10-21] MEDS: 0.9% Saline Lock 10 ML Syringe IV (21:16)
[2019-10-21 21:51] LABS: Bedside Glucose 122 mg/dL (70-110)
[2019-10-21] MEDS: Ipratropium/Albuterol Sulfate 3 ML AMPUL.NEB INHALATION (22:50)
[2019-10-21] MEDS: guaiFENesin 1,200 MG Tablet 1200 MG PO (22:50)
[2019-10-22] VITALS (10 sets, daily range): BP systolic 118–131; BP diastolic 65–73; PULSE 59–70; RESP 16–18; TEMP 36.4–36.6; O2SAT 97–100
--- NOTE | 2019-10-22 05:55 | NM_ITS ---
CLINICAL: Female, 39 years old. Cough, chest pain NUCLEAR VENTILATION/PERFUSION - LUNG TECHNIQUE: The patient was administered 5.6 mCi of Tc MAA followed by a perfusion lung scan. The patient was administered 50 mCi of Tc DTPA aerosol followed by a ventilation lung scan. Comparison made to prior chest radiograph dated 10/21/2019. COMPARISON STUDIES : NM - None. CR - Not available for review at this time. CT - Not available for review at this time. MR - Not available for review at this time. FINDINGS: The pulmonary perfusion study demonstrates uniform perfusion throughout both lung cardenas. There are no demonstrated segmental or subsegmental perfusion defects The ventilation study demonstrates uniform ventilation throughout both lung cardenas. There are no segmental or subsegmental ventilation abnormalities. NM/Lung Scan Vent/Perf IMPRESSION: Normal 99m Tc MAA pulmonary perfusion Tc DTPA aerosol ventilation imaging survey, according to revised PIOPED interpretive criteria. Electronically Signed: González Feliz MD at 9:49 EST Tel , Service support ,
[2019-10-22] MEDS: Enoxaparin 120 MG/0.8 ML Syringe SC (06:15)
[2019-10-22 06:25] LABS: Bedside Glucose 127 mg/dL (70-110)
[2019-10-22] MEDS: Ipratropium/Albuterol Sulfate 3 ML AMPUL.NEB INHALATION ×2 (06:40→14:04)
[2019-10-22 07:09] LABS: Thyroid Stim Hormone (TSH) 2.64 uIU/mL (0.358-3.74)
[2019-10-22] MEDS: Magnesium Oxide 400 MG Tablet PO (10:46)
[2019-10-22] MEDS: guaiFENesin 1,200 MG Tablet 1200 MG PO (10:46)
[2019-10-22] MEDS: Lisinopril 5 MG Tablet PO (10:46)
[2019-10-22] MEDS: Ibuprofen 400 MG Tablet PO (10:46)
[2019-10-22 11:05] LABS: Bedside Glucose 139 mg/dL (70-110)
--- NOTE | 2019-10-22 14:34 | CHAPLAIN ---
Type of Pastoral Visit _x__ Initial Visit ___ Follow-up Visit ___ On-call Visit ___ General Patient Visit ___ Spiritual Assessment ___ Family Conference ___ Bereavement ___ Rapid Response ___ Code Blue ___ Other (describe below) Pastoral Care Referral From _x__ Patient ___ Family ___ Nurse ___ Physician ___ Finger Buffs Assembler ___ Shellfish Harvester ___ Other (describe below) Sacrament/Intervention _x__ Active listening ___ Anointing ___ Episcopalian ___ Bereavement ___ Communion ___ Beata exploration ___ ___ Life review _x__ Prayer ___ Reconciliation ___ Sacrament of Sick ___ Supportive presence ___ Wedding ___ Other (describe below) Pastoral Comments
--- NOTE | 2019-10-22 15:35 | DCINST_ITS ---
- Discharge Diagnoses Current Active Problems: Current Active and Chronic Problems (Last Reviewed 09/29/19 @ 15:27 by Berna Mahan) Dyspnea (Acute) History of type 2 diabetes mellitus (Acute) Acute respiratory insufficiency (Acute) Acute bronchitis (Acute) You will use the following diet at home:: No restrictions Your food should be the consistency of: Regular Your liquids should be the consistency of: Regular/Thin Discharge Activity: Return to Normal Activity Return to work on:: 10/26/19 Weight Bearing Status: Full weight bearing Allergies/Adverse Reactions: Allergies STEROIDS Allergy (Uncoded 10/21/19 15:32) Hives Medications to take at Discharge Lorazepam [Ativan] 0.5 mg PO DAILY PRN PRN 10/27/13 Albuterol Inhaler [Ventolin Hfa] 1 - 2 puff INHALATION Q6H PRN PRN 10/27/15 Tizanidine HCl [Zanaflex] 4 mg PO DAILY PRN PRN 04/29/17 Erenumab-Aooe [Aimovig Autoinjector] 140 mg IM QMONTH 07/22/18 Ibuprofen 400 mg PO PRN PRN 07/22/18 Lisinopril [Zestril] 5 mg PO DAILY 02/14/19 Magnesium Oxide [Mag-Ox 400] 400 mg PO DAILYCM #30 tablet 02/17/19 Dicyclomine HCl [Bentyl] 20 mg PO TIDAC #20 cap 05/08/19 Ondansetron [Zofran Odt] 4 mg PO Q8H PRN PRN #10 tab 09/24/19 Primary Care Physician: Zeferino Leon MD [Primary Care Provider] - Please follow up with your Primary Care Physician in: at next appointment Test Results: Test results from this visit will be discussed in further detail at your follow- up appointment, if applicable.
[2019-10-22 16:56] LABS: Bedside Glucose 111 mg/dL (70-110)
--- NOTE | 2019-10-23 17:22 | PCM.DC.SUM ---
Discharge Date and Diagnosis Date of Admission: 10/21/19 Date of Discharge: 10/22/19 - Primary Discharge Diagnosis #1 acute bronchitis-etiology unclear #2 type 2 diabetes #3 obstructive sleep apnea - Secondary Discharge Diagnosis Chronic Problems (Last Reviewed 09/29/19 @ 15:27 by Berna Mahan) Nonalcoholic hepatosteatosis (Chronic) Type 2 diabetes mellitus (Chronic) Hypertension (Chronic) Obesity (Chronic) Vertigo (Chronic) Lumbosacral spondylosis (Chronic) Lumbar facet arthropathy (Chronic) Left upper quadrant abdominal pain (Chronic) Segmental and somatic dysfunction of pelvic region (Chronic) Segmental and somatic dysfunction of thoracic region (Chronic) Radiculopathy of lumbosacral region (Chronic) Disc displacement, lumbar (Chronic) Degeneration of intervertebral disc of lumbosacral region (Chronic) Hospital Course and Treatment Operations: None Procedures: None Summary of Care Provided: The patient is a 39 year old F seen in the emergency room at [facility] with a chief complaint of dyspnea on exertion and chest wall pain. She also complained of a dry cough times several days. Work-up in the emergency room included labs which showed an elevated d-dimer, patient underwent a CT of the chest which showed no definite evidence for pulmonary emboli but there were linear defects within the subsegmental vessels to both lower lobes due to motion artifact limiting evaluation. Patient's pulse ox on room air was above 90%, patient was placed in observation status on MedSurg 3 for acute bronchitis and dyspnea, she underwent a VQ scan which showed no evidence of pulmonary emboli. On 10/21/2019, patient was seen and examined: On examination she appeared in good health and spirits. Vital signs as documented. Skin warm and dry and without overt rashes. Neck without JVD. Lungs clear. Heart exam notable for regular rhythm, normal sounds and absence of murmurs, rubs or gallops. Abdomen unremarkable and without evidence of organomegaly, masses, or abdominal aortic enlargement. Extremities nonedematous. Neuro: Cranial nerves II through XII are grossly intact, no focal motor deficits were noted, sensation to light touch and pinprick is intact. Psych: Patient is alert and oriented x3, she does not appear anxious or depressed On 10/21/2019, patient was seen and examined and felt to be in stable condition for discharge home. - Physical Exam Vitals/I&O's: Vital Signs Temp Pulse Resp BP Pulse Ox 98 F 65 18 131/70 H 100 10/22/19 16:14 10/22/19 16:14 10/22/19 16:14 10/22/19 16:14 10/22/19 16:14 Oxygen Delivery Method Room Air Weight: 129.274 kg Body Mass Index (BMI) 44.6 Finger Stick Blood Glucose 153 Intake and Output for Last 24 Hours 10/21/19 10/22/19 10/23/19 23:59 23:59 23:59 Intake Total 1591.67 / 1591.67 Balance 1591.67 / 1591.67 Microbiology Past 72 Hours 10/21/19 22:57 Mucosa - Nose Respiratory Panel (PCR) - Final Discharge Activity: Return to Normal Activity Return to work on:: 10/26/19 Weight Bearing Status: Full weight bearing Home Medications: Medications to take at Discharge Lorazepam [Ativan] 0.5 mg PO DAILY PRN PRN 10/27/13 Albuterol Inhaler [Ventolin Hfa] 1 - 2 puff INHALATION Q6H PRN PRN 10/27/15 Tizanidine HCl [Zanaflex] 4 mg PO DAILY PRN PRN 04/29/17 Erenumab-Aooe [Aimovig Autoinjector] 140 mg IM QMONTH 07/22/18 Ibuprofen 400 mg PO PRN PRN 07/22/18 Lisinopril [Zestril] 5 mg PO DAILY 02/14/19 Magnesium Oxide [Mag-Ox 400] 400 mg PO DAILYCM #30 tablet 02/17/19 Dicyclomine HCl [Bentyl] 20 mg PO TIDAC #20 cap 05/08/19 Ondansetron [Zofran Odt] 4 mg PO Q8H PRN PRN #10 tab 09/24/19 Primary Care Physician: Zeferino Leon MD [Primary Care Provider] - Please follow up with your Primary Care Physician in: at next appointment Disposition: Home Minutes spent on discharge:: 30 Patient Condition:: Stable Medical Necessity - Tobacco Use Smoking Status: Never smoker Tobacco Use: Secondhand Meaningful Use Info Meaningful Use Diagnoses (Choose all that apply): None applicable Code Visit OBSV E&M: 19493 Observation care discharge
== END 2019-10-22 17:29 | disposition home or self-care (01) ==
LOC: ED 18:18 → MS3 19:54
PROVIDERS: Admitting Provider Internal Medicine; Emergency Provider Emergency Medicine; Family Provider Family Medicine; PCP Family Medicine; Referring Provider Internal Medicine; Visit Provider Internal Medicine
DX: J20.9 Acute bronchitis, unspecified (principal); G47.33 Obstructive sleep apnea (adult) (pediatric); E11.9 Type 2 diabetes mellitus without complications; I10 Essential (primary) hypertension; M51.37 Other intervertebral disc degeneration, lumbosacral region; E78.1 Pure hyperglyceridemia; K75.81 Nonalcoholic steatohepatitis (NASH); M99.05 Segmental and somatic dysfunction of pelvic region; M99.02 Segmental and somatic dysfunction of thoracic region; M47.27 Other spondylosis with radiculopathy, lumbosacral region; Z79.899 Other long term (current) drug therapy; Z68.41 Body mass index [BMI] 40.0-44.9, adult; Z71.3 Dietary counseling and surveillance; E66.01 Morbid (severe) obesity due to excess calories
CPT/HCPCS: 36415; 71046; 71275; 78582; 80048; 82962; 84443; 84484; 85025; 85379; 87633; 93005; 94640; 94667; 94668; 96360; 96361; 96372; 99218; 99251; 99285; A9540; A9567; J7120; Q9967; A4216; G0378; G0463

== ENCOUNTER 2019-12-30 17:40 | Emergency (ER) | payer OTHER, SELFPAY ==
[2019-10-21 19:55] VITALS: BMI 44.6
[2019-12-30 17:41] VITALS: BP 148/72; PULSE 88; RESP 16; TEMP 37.1; O2SAT 99; BMI 45.6
[2019-12-30 18:37] VITALS: BP 137/88; BP 147/77; BP 155/91; PULSE 101; PULSE 88; PULSE 97
--- NOTE | 2019-12-30 19:01 | EKG12_ITS ---
Test Reason : GEN ILL Blood Pressure : / mmHG Vent. Rate : 081 BPM Atrial Rate : 081 BPM P-R Int : 130 ms QRS Dur : 090 ms QT Int : 410 ms P-R-T Axes : 004 012 129 degrees QTc Int : 476 ms Normal sinus rhythm Nonspecific ST and T wave abnormality Prolonged QT Abnormal ECG Confirmed by NIKKO SHEARER, XIAO ([id number]), publishing editor PRISCILA FERRERA ([id number]) on 01/04/2020 8:47:37 AM Referred By: SHANI Confirmed By:ENRIQUE EL MD
--- NOTE | 2019-12-30 19:14 | ED.DCSUM_ITS ---
History of Present Illness Chief Complaint: General Illness Informant: Patient Onset: Yesterday Context: Gradual Onset Timing: Continuous Quality: fatigue. xiao riosx. Current Severity: Moderate Maximum Severity: Moderate Narrative: Patient has had malaise and significant fatigue since yesterday. She states she slept 15 hours today. She has no known exposure to mononucleosis, but she does have a significant other. She states she had a lot of diarrhea yesterday and earlier today but it has been a while since she has had about and is hoping it is gone. It was not bloody or melanotic. She had some right-sided abdominal discomfort with this, and some lightheadedness. No vomiting. She had a migraine yesterday, has a history of migraines, but that is gone now. No focal neurologic symptoms or diplopia. No neck pain. Had a sore throat yesterday but that is gone. No respiratory symptoms. Chronic pain in her low back. States she has been diagnosed with pyelonephritis before and did not really have much in the way of urinary symptoms, and with her chronic disc-related lumbar back pain, I cannot tell if it is my kidneys or my disks. She has a history of diabetes, but did not check her blood sugar today. - Past Medical History (1) Calculus of left kidney Status: Resolved (2) Elevated triglycerides with high cholesterol Status: Chronic (3) History of obstructive sleep apnea Status: Chronic (4) History of type 2 diabetes mellitus Status: Chronic (5) Pyelonephritis Status: Resolved (6) Segmental and somatic dysfunction of lumbar region Status: Chronic (7) Degeneration of intervertebral disc of lumbosacral region Status: Chronic (8) Hypertension Status: Chronic (9) Lumbar facet arthropathy Status: Chronic (10) Lumbosacral spondylosis Status: Chronic (11) Nonalcoholic hepatosteatosis Status: Chronic (12) Radiculopathy of lumbosacral region Status: Suspected (13) Vertigo Status: Suspected (14) Migraines Status: Chronic Past Medical History - Allergies and Home Meds Allergies/Adverse Reactions: Allergies STEROIDS Allergy (Uncoded 12/30/19 17:45) Hives Primary Care Physician: Zeferino Leon MD [Primary Care Provider] - Surgical History: cholecystectomy Smoking Status: Never smoker - Family History Paternal Family History: Family History (Last Reviewed 12/28/19 @ 16:04 by Berna Mahan) Father Diabetes Family History: Reports: Diabetes, High Cholesterol, Heart Disease, Hypertension Maternal Family History: Family History (Last Reviewed 12/28/19 @ 16:04 by Berna Mahan) Father Diabetes Family History: Reports: - Review of Systems General: Reports: Chills - feel cold, Malaise. Denies: Fever, Sweats Eyes: Denies: Visual changes - bilaterally, Diplopia ENT: Reports: Sore throat - yesterday, gone now. Denies: Bilateral ear pain, Rhinorrhea Cardiovascular: Denies: Chest pain, Palpitations Respiratory: Denies: Dyspnea, Cough, Dyspnea on exertion Gastrointestinal: Reports: Abdominal pain - right mid-abd, Diarrhea. Denies: Nausea, Vomiting, Melena, Hematochezia Genitourinary: Reports: - - decreased UOP. Denies: Dysuria, Hematuria, Frequency Musculoskeletal: Reports: Back pain - low. Denies: Neck pain, Swelling, Extremity Pain Skin: Denies: Rash, Wounds Neurological: Reports: Headache - gone now. Denies: Weakness, Numbness Physical Exam Vital Signs/Narrative: Vital Signs Temp Pulse Pulse Pulse Pulse Resp BP 12/30/19 18:37 88 97 101 H 12/30/19 17:41 98.7 F 88 16 148/72 H BP BP BP Pulse Ox 12/30/19 18:37 155/91 H 137/88 H 147/77 H 12/30/19 17:41 99 Inital Vital Signs reviewed: Yes General: Well nourished, Well developed, Obese, No Acute Distress Head: Normocephalic, Atraumatic Eyes: Perrl, EOMI, - - no photophobia ENT: Moist mucous membranes, No rhinorrhea Neck: Supple, Nontender, No lymphadenopathy Cardiovascular: Regular rate, Regular rhythm, No murmurs Respiratory: No distress, CTA bilaterally, Chest nontender Abdomen: Soft, Nontender, Nondistended, Normal bowel sounds Back: Nontender, Normal Inspection. Negative for: CVA tenderness Extremities: Nontender, No edema Skin: Normal color, No rash, No Trauma Neurological: Alert, Oriented x3, Cranial nerves II-XII grossly intact, Normal Strength, Normal Sensation, Normal Gait Psychological: Normal affect, Normal Mood Diagnostic/Tx/Re-eval Laboratory Results 12/30/19 12/30/19 12/30/19 19:10 19:10 20:45 WBC 7.7 RBC 4.48 Hgb 13.7 Hct 40.3 MCV 90.0 MCH 30.6 MCHC 34.0 RDW Std Deviation 44.4 H RDW Coeff of Itzel 13.6 Plt Count 186 MPV 9.1 Immature Gran % (Auto) 1.700 H Neut % (Auto) 65.2 Lymph % (Auto) 26.0 [place] % (Auto) 4.2 Eos % (Auto) 2.2 Baso % (Auto) 0.7 Absolute Neuts (auto) 5.0 Absolute Lymphs (auto) 2.00 Nucleated RBC % 0 Sodium 136 Potassium 3.4 L Chloride 105 Carbon Dioxide 26.0 Anion Gap 5 BUN 10 Creatinine 0.76 Estim Creat Clear Calc 98.56 Est GFR (MDRD) Af Amer 109 Est GFR (MDRD) Non-Af 90 BUN/Creatinine Ratio 13.1 Glucose 148 H Calcium 7.7 L Total Bilirubin 0.70 AST 36 ALT 67 H Alkaline Phosphatase 89 Total Protein 7.4 Albumin 3.4 Globulin 4.0 Albumin/Globulin Ratio 0.8 L Urine Color Urine Clarity Urine pH Ur Specific [place] Urine Protein Urine Glucose (UA) Urine Ketones Urine Occult Blood Urine Nitrite Urine Bilirubin Urine Urobilinogen Ur Leukocyte Esterase Urine RBC Urine WBC Ur Squamous Epith Cells Urine Bacteria Urine Mucus Urine Test Negative 12/30/19 20:45 WBC RBC Hgb Hct MCV MCH MCHC RDW Std Deviation RDW Coeff of Itzel Plt Count MPV Immature Gran % (Auto) Neut % (Auto) Lymph % (Auto) Sa[place] % (Auto) Eos % (Auto) Baso % (Auto) Absolute Neuts (auto) Absolute Lymphs (auto) Nucleated RBC % Sodium Potassium Chloride Carbon Dioxide Anion Gap BUN Creatinine Estim Creat Clear Calc Est GFR (MDRD) Af Amer Est GFR (MDRD) Non-Af BUN/Creatinine Ratio Glucose Calcium Total Bilirubin AST ALT Alkaline Phosphatase Total Protein Albumin Globulin Albumin/Globulin Ratio Urine Color Straw Urine Clarity Sl. Cloudy Urine pH 6.5 Ur Specific [place] 1.005 Urine Protein Negative Urine Glucose (UA) Normal Urine Ketones Negative Urine Occult Blood Negative Urine Nitrite Negative Urine Bilirubin Negative Urine Urobilinogen Normal Ur Leukocyte Esterase 100 H Urine RBC 0 SEEN Urine WBC 0-5 SEEN Ur Squamous Epith Cells 0-5 SEEN Urine Bacteria RARE Urine Mucus 0 SEEN Urine Test - Rhythm Strip Rhythm Strip: Sinus Rhythm Rate: 81 Ectopy: None - EKG Initial EKG Interpretation: Sinus Rhythm, No Acute Injury Pattern, - Prior: Unchanged - Medical Decision Making Work-up is unremarkable with a negative and urinalysis does not show acute infection/pyuria. Patient was given IV fluids, Zofran, GI cocktail, followed by some Reglan because she developed 1 of her migraines. Her headache is better but she still feels fatigued and malaised. She states even after Bentyl her stomach still feels like it is churning. Her abdomen is benign and I do not think she needs emergent imaging, I feel she can be safely discharged home. Of note, mononucleosis was also in the differential diagnosis, her posterior oropharynx is normal, she has no posterior lymphadenopathy in her neck, she has normal liver enzymes, and she has no atypical lymphocytes on her CBC, so I think that is a less likely. However, she could have a different virus gave her the diarrhea she had earlier. If she continues to have symptoms she should follow-up for repeat evaluation but I do not think she needs further emergent testing or admission to the hospital at this time. She is comfortable going home, and will be given a dose of simethicone prior to discharge see if that helps her stomach. Will prescribe her Reglan to use as needed at home. Of note at one point, she did have recurrence of facial flushing that she described earlier, we rechecked her temperature and her vital signs and everything was normal/afebrile. ED Disposition - Plan for ED Patient: Disposition: Home or Assisted Living Diagnosis: Acute diarrhea, Lightheadedness, Fatigue, Migraine headache Instructions: VIRAL SYNDROME (Adult), VOMITING AND DIARRHEA, Nonspecific (Adult) Prescriptions: Metoclopramide [Reglan] 10 mg PO Q6H PRN #15 tab PRN Reason: Headache or nausea/vomiting Prescription Printed Referrals: Zeferino Leon MD [Primary Care Provider] - 3-5 Days if not improving
[2019-12-30 19:19] LABS: Basophil# 0.05 X10^3/uL; Basophil% 0.7 % (0-1); Eosinophil# 0.17 X10^3/uL; Eosinophils% 2.2 % (0-5); Hematocrit 40.3 % (37-47); Hemoglobin 13.7 g/dL (12.0-15.0); Mean Corpuscular Hgb 30.6 pg (27.0-32.0); Mean Platelet Vol. 9.1 fl (6.2-12.0); Monocyte# 0.32 X10^3/uL; Monocyte% 4.2 % (0-10); NRBC Flagged by Analyzer 0 % (0-5); Neutrophil # 5.02 X10^3/uL (2.7-7.7); Neutrophil % 65.2 % (47-70); Platelet Count 186 K/mm3 (150-450); RBC Distribution Width CV 13.6 % (11.6-14.6); RBC Distribution Width SD 44.4 fl (35.1-43.9); Red Blood Count 4.48 M/mm3 (4.2-5.4); White Blood Count 7.7 K/mm3 (4.4-11.0)
[2019-12-30] MEDS: Dicyclomine 10 MG Capsule 20 MG PO (19:38)
[2019-12-30] MEDS: 0.9% Normal Saline 1,000 ML 999 ML IV (19:38)
[2019-12-30] MEDS: Mag Hydrox/Al Hydrox/Simeth 30 ML UDC PO (19:38)
[2019-12-30 19:40] LABS: ALB/GLOB Ratio 0.8 RATIO (0.9-2.4); AST(SGOT) 36 U/L (15-37); Alanine Aminotransfer ALT/SGPT 67 U/L (13-56); Albumin, Serum 3.4 g/dL (3.2-5.0); Alkaline Phosphatase 89 U/L (45-117); Anion Gap 5 (5-15); BUN 10 mg/dL (7-18); BUN/Creat Ratio 13.1 RATIO (10-20); Calcium,Total 7.7 mg/dL (8.5-10.1); Chloride 105 mmol/L (98-107); Creatinine, Serum 0.76 mg/dL (0.55-1.02); EST Glomerular Filtration Rate 90 mL/min (>60); Est Glom Filt Rate - Afr Amer 109 mL/min (>60); Estimated Creatinine Clearance 98.56 ml/min; Glucose 148 mg/dL (74-106); Potassium 3.4 mmol/L (3.5-5.1); Protein, Total 7.4 g/dL (6.4-8.2); Sodium Level 136 mmol/L (136-145)
[2019-12-30 20:47] LABS: Mucous, Urine 0 SEEN /hpf (<or=2+); Red Blood Cells-Urine 0 SEEN /hpf (0-5)
[2019-12-30 20:49] LABS: Color, Urine Straw (Yellow); Glucose, Dipstick Normal (Normal); Ketone-Dipstick Negative (Negative); Leukocyte Esterase-Dipstick 100 /ul (Negative); Nitrite-Dipstick Negative (Negative); Occult Blood-Urine Negative /ul (Negative); Protein-Dipstick Negative (Negative); Specific Gravity, Urine 1.005 (1.002-1.030); Urine Bilirubin Dipstick Negative (Negative); Urine Clarity Sl. Cloudy (Clear); Urine Urobilinogen Normal (Normal); Urine pH 6.5 (5.0 - 8.0)
[2019-12-30 20:50] LABS: Internal QC Validated? YES +Cl - CLEAR BKGD
[2019-12-30 20:51] LABS: Pregnancy, Urine Negative Negative
[2019-12-30 20:56] LABS: Bacteria RARE /hpf (None Seen); Squamous Epithelial Cells - UA 0-5 SEEN /hpf (5-10); White Blood Cells 0-5 SEEN /hpf (0-5)
[2019-12-30] MEDS: Ondansetron 4 MG/2 ML Vial IV (21:43)
[2019-12-30 21:44] VITALS: BP 127/63; PULSE 79; RESP 20; O2SAT 97
[2019-12-30 21:51] VITALS: TEMP 36.6
[2019-12-30] MEDS: Metoclopramide 10 MG/2 ML Vial 5 MG IV (21:57)
[2019-12-30 23:38] VITALS: RESP 14
== END 2019-12-30 23:39 | disposition home or self-care (01) ==
PROVIDERS: Emergency Provider Emergency Medicine; PCP Family Medicine
DX: R19.7 Diarrhea, unspecified (principal); R42 Dizziness and giddiness; R53.83 Other fatigue; G43.909 Migraine, unspecified, not intractable, without status migrainosus; E11.9 Type 2 diabetes mellitus without complications; E78.00 Pure hypercholesterolemia, unspecified; G47.33 Obstructive sleep apnea (adult) (pediatric); I10 Essential (primary) hypertension; Z82.49 Family history of ischemic heart disease and other diseases of the circulatory system; Z90.49 Acquired absence of other specified parts of digestive tract
CPT/HCPCS: 80053; 81001; 81025; 85025; 93005; 96361; 96374; 96375; 99285; J7030; J2405

== ENCOUNTER → 2020-01-01 12:34 | Outpatient (CLI) | payer OTHER, SELFPAY ==
[2019-12-30 17:41] VITALS: BMI 45.6
[2020-01-01 13:32] LABS: Absolute Lymphocyte Count 2.35 X10^3/uL (0.83-4.51); Absolute Neutrophil Count 6.3 X10^3/uL (2.0-7.7); Basophil# 0.05 X10^3/uL; Basophil% 0.5 % (0-1); Eosinophil# 0.44 X10^3/uL; Eosinophils% 4.6 % (0-5); Hematocrit 39.8 % (37-47); Hemoglobin 13.4 g/dL (12.0-15.0); Lymphocyte # 2.35 X10^3/ul (4.0); Lymphocyte % 24.4 % (19-41); Mean Corp Hgb Conc 33.7 g/dL (32-36); Mean Corpuscular Hgb 30.7 pg (27.0-32.0); Mean Corpuscular Volume 91.1 fL (81-99); Mean Platelet Vol. 9.4 fl (6.2-12.0); Monocyte# 0.42 X10^3/uL; Monocyte% 4.4 % (0-10); NRBC Flagged by Analyzer 0 % (0-5); Neutrophil # 6.25 X10^3/uL (2.7-7.7); Platelet Count 218 K/mm3 (150-450); RBC Distribution Width CV 13.8 % (11.6-14.6); RBC Distribution Width SD 46.2 fl (35.1-43.9); Red Blood Count 4.37 M/mm3 (4.2-5.4); White Blood Count 9.6 K/mm3 (4.4-11.0)
[2020-01-01 14:04] LABS: Anion Gap 7 (5-15); BUN 8 mg/dL (7-18); BUN/Creat Ratio 13.6 RATIO (10-20); Calcium,Total 8.4 mg/dL (8.5-10.1); Chloride 104 mmol/L (98-107); Creatinine, Serum 0.59 mg/dL (0.55-1.02); EST Glomerular Filtration Rate 122 mL/min (>60); Est Glom Filt Rate - Afr Amer 148 mL/min (>60); Glucose 103 mg/dL (74-106); Potassium 3.5 mmol/L (3.5-5.1); Sodium Level 136 mmol/L (136-145); Thyroid Stim Hormone (TSH) 4.49 uIU/mL (0.358-3.74)
[2020-01-01 14:06] LABS: Internal QC Validated? YES +Cl - CLEAR BKGD; Monotest Negative (Negative)
[2020-01-04 11:01] LABS: T4 Total, Thyroxin 10.8 ug/dL (4.8-13.9)
[2020-01-04 11:02] LABS: T3 Total - Triiodothyronine 1.04 ng/mL (0.6-1.81)
== END ==
PROVIDERS: PCP Family Medicine; Referring Provider Family Medicine; Visit Provider Family Medicine
DX: R53.81 Other malaise (principal); R19.7 Diarrhea, unspecified
CPT/HCPCS: 36415; 80048; 83630; 84436; 84443; 84480; 85025; 86308; 87177; 87209; 87493; 87506

== ENCOUNTER → 2020-01-27 12:24 | Outpatient (CLI) | payer OTHER, SELFPAY ==
[2019-12-30 17:41] VITALS: BMI 45.6
[2020-01-27 13:20] LABS: T4 Free Direct 0.84 ng/dL (0.76-1.46); Thyroid Stim Hormone (TSH) 2.88 uIU/mL (0.358-3.74)
== END ==
PROVIDERS: PCP Family Medicine; Referring Provider Physician Assistant; Visit Provider Physician Assistant
DX: R94.6 Abnormal results of thyroid function studies (principal)
CPT/HCPCS: 36415; 84439; 84443

== ENCOUNTER → 2020-02-26 08:35 | Outpatient (CLI) | payer OTHER, SELFPAY ==
[2020-02-26 09:43] LABS: Cholesterol 215 mg/dL (200); High Density Lipoprotein 36 mg/dL; Triglycerides 330 mg/dL; Very Low Density Lipoprotein 66 mg/dL (5-40)
[2020-02-26 10:02] LABS: Hemoglobin A1c 7.8 % (4.2-6.3)
== END ==
PROVIDERS: PCP Family Medicine; Referring Provider Family Medicine; Visit Provider Family Medicine
DX: E78.1 Pure hyperglyceridemia (principal); E11.29 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 kidney complication; R80.9 Proteinuria, unspecified; Z79.4 Long term (current) use of insulin
CPT/HCPCS: 36415; 80061; 83036

== ENCOUNTER 2020-03-23 20:11 | Emergency (ER) | payer OTHER, SELFPAY ==
[2020-03-23 20:11] VITALS: BP 245/136; PULSE 85; RESP 16; TEMP 36.2; O2SAT 97; BMI 44.5
[2020-03-23 20:33] VITALS: PULSE 83; RESP 14; O2SAT 97
--- NOTE | 2020-03-23 20:45 | EKG12_ITS ---
Test Reason : CP Blood Pressure : / mmHG Vent. Rate : 083 BPM Atrial Rate : 083 BPM P-R Int : 128 ms QRS Dur : 086 ms QT Int : 404 ms P-R-T Axes : 003 019 095 degrees QTc Int : 474 ms Normal sinus rhythm Nonspecific ST and T wave abnormality Abnormal ECG Confirmed by ANASTASIYA SHEARER, DALLIN ([id number]), web editor GRAZYNA BLOOD ([id number]) on 03/29/2020 2:52:45 PM Referred By: KELLIE Confirmed By:DALLIN LANGFORD MD
--- NOTE | 2020-03-23 21:11 | ED.DCSUM_ITS ---
History of Present Illness Chief Complaint: Chest Pain Informant: Patient Onset: Yesterday Narrative: Continuous chest pain since yesterday evening after taking her Elavil which was started Saturday for migraines. Takes it every night since Saturday. No cough. No dyspnea. No radicular symptoms. States pressure in nature. History of costochondritis. Denies tobacco history. Family history of father with ID at age 38 history of diabetes. Denies hypertension or hypercholesterolemia. No headache or visual changes. Currently nausea no vomiting or diarrhea. No urinary symptoms. Prior similar symptoms: Yes Past Medical History - Allergies and Home Meds Allergies/Adverse Reactions: Allergies STEROIDS Allergy (Uncoded 03/23/20 20:14) Hives Primary Care Physician: Zeferino Leon MD [Primary Care Provider] - Past Medical History: - - Diabetes, costochondritis Surgical History: cholecystectomy Smoking Status: Never smoker - Family History Paternal Family History: Family History (Last Reviewed 01/18/20 @ 15:47 by Berna Mahan) Father Diabetes Family History: Reports: Diabetes, High Cholesterol, Heart Disease, Hypertension Maternal Family History: Family History (Last Reviewed 01/18/20 @ 15:47 by Berna Mahan) Father Diabetes Family History: Reports: - Review of Systems General: Denies: Chills, Fever, Sweats Eyes: Denies: Visual changes - bilaterally, Diplopia ENT: Denies: Rhinorrhea, Sore throat Cardiovascular: Reports: Chest pain. Denies: Palpitations Respiratory: Denies: Dyspnea, Cough, Dyspnea on exertion Gastrointestinal: Reports: Nausea. Denies: Abdominal pain, Vomiting, Diarrhea, Melena, Hematochezia Genitourinary: Denies: Dysuria, Hematuria, Frequency Musculoskeletal: Denies: Back pain, Extremity Pain Skin: Denies: Rash, Wounds Neurological: Denies: Headache, Weakness, Numbness Physical Exam Vital Signs/Narrative: Vital Signs Temp Pulse Resp BP Pulse Ox 03/23/20 20:33 83 14 97 03/23/20 20:11 97.2 F L 85 16 245/136 H 97 Inital Vital Signs reviewed: Yes General: Well nourished, Well developed, No Acute Distress Head: Normocephalic, Atraumatic Eyes: Perrl, EOMI ENT: Moist mucous membranes, No rhinorrhea Neck: Supple, Nontender Cardiovascular: Regular rate, Regular rhythm, No murmurs Respiratory: No distress, CTA bilaterally, Chest tenderness, - - Midsternal chest tenderness, no rash. Abdomen: Soft, Nontender, Nondistended, Normal bowel sounds Back: Nontender, Normal Inspection Extremities: Nontender, No edema Skin: Normal color, No rash Neurological: Alert, Oriented x3, Cranial nerves II-XII grossly intact, Normal Strength, Normal Sensation Psychological: Normal affect, Normal Mood Diagnostic/Tx/Re-eval Chest X-Ray - ED: 1 View, Read by ED Physician, No Acute Disease Clinical Impression(s) from Imaging Studies Chest X-Ray 03/23/20 21:44 IMPRESSION: Normal x-ray examination of the chest. Electronically Signed: Munir Reynolds, at 22:32 EDT Tel , Service support , Abnormal Lab Results 03/23/20 03/23/20 03/23/20 21:23 21:23 21:23 WBC 9.5 RBC 4.27 Hgb 13.0 Hct 38.9 MCV 91.1 MCH 30.4 MCHC 33.4 RDW Std Deviation 45.3 H RDW Coeff of Itzel 13.8 Plt Count 215 MPV 9.2 Immature Gran % (Auto) 1.900 H Neut % (Auto) 55.7 Lymph % (Auto) 34.9 [place] % (Auto) 4.6 Eos % (Auto) 2.2 Baso % (Auto) 0.7 Absolute Neuts (auto) 5.3 Absolute Lymphs (auto) 3.32 Nucleated RBC % 0 PT 13.2 INR 1.1 APTT 31.4 Sodium 137 Potassium 4.0 Chloride 103 Carbon Dioxide 28.0 Anion Gap 6 BUN 11 Creatinine 0.70 Estim Creat Clear Calc 111.00 Est GFR (MDRD) Af Amer 120 Est GFR (MDRD) Non-Af 99 BUN/Creatinine Ratio 15.6 Glucose 173 H Calcium 9.4 Troponin I < 0.015 - EKG Initial EKG Interpretation: Sinus Rhythm - Sinus rate of 83, no ST changes. Isolated T wave inversion in aVL, nonspecific. - Medical Decision Making Initial triage blood pressure was elevated at 245 however rechecked immediately was 150 systolic. Without intervention went down to 120s. Presenting with sl ight pressure this been persistent, no symptoms concerning for dissection. EKG with no acute changes there is nonspecific T wave inversion. Troponin negative, with persistent symptoms since yesterday evening less likely cardiac in nature. She had reproducible chest pain. She was treated for nausea requested Tylenol for pain symptoms. Symptoms are tolerable. Her heart score is 2. Patient has stress test a year ago. Discussed with patient follow-up as an outpatient, strict signs and sent discussed return. All questions were answered. ED Disposition - Plan for ED Patient: Disposition: Home or Assisted Living Diagnosis: Chest pain Instructions: ED CHEST PAIN [place] Prescriptions: Ondansetron [Zofran Odt] 4 mg PO Q8H PRN PRN #10 tab PRN Reason: Nausea Transmission Status: Pending to [facility] Referrals: Zeferino Leon MD [Primary Care Provider] - 3-5 Days
[2020-03-23 21:32] LABS: Absolute Lymphocyte Count 3.32 X10^3/uL (0.83-4.51); Absolute Neutrophil Count 5.3 X10^3/uL (2.0-7.7); Basophil# 0.07 X10^3/uL; Basophil% 0.7 % (0-1); Eosinophil# 0.21 X10^3/uL; Eosinophils% 2.2 % (0-5); Hematocrit 38.9 % (37-47); Lymphocyte # 3.32 X10^3/ul (4.0); Lymphocyte % 34.9 % (19-41); Mean Corp Hgb Conc 33.4 g/dL (32-36); Mean Corpuscular Hgb 30.4 pg (27.0-32.0); Mean Corpuscular Volume 91.1 fL (81-99); Mean Platelet Vol. 9.2 fl (6.2-12.0); Monocyte# 0.44 X10^3/uL; Monocyte% 4.6 % (0-10); NRBC Flagged by Analyzer 0 % (0-5); Neutrophil # 5.28 X10^3/uL (2.7-7.7); Neutrophil % 55.7 % (47-70); Platelet Count 215 K/mm3 (150-450); RBC Distribution Width CV 13.8 % (11.6-14.6); RBC Distribution Width SD 45.3 fl (35.1-43.9); Red Blood Count 4.27 M/mm3 (4.2-5.4); White Blood Count 9.5 K/mm3 (4.4-11.0)
[2020-03-23 21:43] LABS: International Normalized Ratio 1.1; Prothrombin Time (Protime)PT. 13.2 SECONDS (11.7-14.9)
[2020-03-23 21:44] LABS: Partial Thromboplast Time 31.4 Seconds (24.1-36.2)
--- NOTE | 2020-03-23 21:44 | RAD_ITS ---
STUDY: X-RAY CHEST REASON FOR EXAM: Female, 39 years old. chest tightness TECHNIQUE: Portable chest COMPARISON: 10/21/2019 FINDINGS: The lungs are clear and expanded. There is no demonstrated pleural abnormality. Normal size heart. Normal mediastinum and osman. Normal visualized pulmonary arteries. Normal visualized aortic arch and descending thoracic aorta. Normal visualized thoracic spine. Normal visualized ribs, clavicles, and shoulders. There is no demonstrated abnormality of the visualized soft tissue structures of the upper abdomen. RAD/Chest 1 View (Portable) IMPRESSION: Normal x-ray examination of the chest. Electronically Signed: Munir Reynlods, at 22:32 EDT Tel , Service support ,
[2020-03-23] MEDS: Ondansetron 4 MG/2 ML Vial IV (21:51)
[2020-03-23] MEDS: Acetaminophen 500 MG Tablet 1000 MG PO (21:51)
[2020-03-23 21:53] VITALS: BP 125/78; PULSE 78; RESP 16; O2SAT 98
[2020-03-23 21:54] LABS: Anion Gap 6 (5-15); BUN 11 mg/dL (7-18); BUN/Creat Ratio 15.6 RATIO (10-20); Calcium,Total 9.4 mg/dL (8.5-10.1); Chloride 103 mmol/L (98-107); EST Glomerular Filtration Rate 99 mL/min (>60); Est Glom Filt Rate - Afr Amer 120 mL/min (>60); Glucose 173 mg/dL (74-106); Sodium Level 137 mmol/L (136-145)
[2020-03-23 22:55] VITALS: PULSE 82
== END 2020-03-23 23:00 | disposition home or self-care (01) ==
PROVIDERS: Emergency Provider Emergency Medicine; PCP Family Medicine
DX: R07.89 Other chest pain (principal); G43.909 Migraine, unspecified, not intractable, without status migrainosus; E11.9 Type 2 diabetes mellitus without complications; Z79.899 Other long term (current) drug therapy
CPT/HCPCS: 71045; 80048; 84484; 85025; 85610; 85730; 93005; 99285; A4216; J2405

== ENCOUNTER 2020-05-05 14:04 | Emergency (ER) | payer OTHER, SELFPAY ==
[2020-04-28 15:50] VITALS: BMI 44.5
[2020-05-05 14:05] VITALS: BP 175/104; PULSE 84; RESP 18; TEMP 36; O2SAT 96; BMI 46.5
--- NOTE | 2020-05-05 14:24 | RAD_ITS ---
STUDY: X-RAY - RIGHT FOOT CLINICAL: Female, 39 years old. Pt fell, continuous pain, most pain in foot and ankle TECHNIQUE: 3 view(s) of the foot. COMPARISON: None. FINDINGS: Normal talus and tarsal bones. Calcaneal spurs Normal visualized subtalar, talonavicular, calcaneocuboid, tarsal and tarsometatarsal articulations. Normal metatarsi. Normal metatarsophalangeal joint of the great toe. Normal tibial and fibular sesamoid bones. Normal interphalangeal joint of the great toe. Normal phalanges of the great toe. Normal second through fifth metatarsophalangeal joints. Normal interphalangeal joints and phalanges of the lesser toes. The soft tissue structures are unremarkable. RAD/Foot min 3 Views IMPRESSION: Calcaneal spurs, otherwise unremarkable right foot Electronically Signed: Alf Johnson MD at 15:34 EDT , Service support ,
--- NOTE | 2020-05-05 14:24 | RAD_ITS ---
STUDY: X-RAY - RIGHT KNEE REASON FOR EXAM: Female, 39 years old. pt fell, continuous pain, most pain in foot and ankle TECHNIQUE: 4 view(s) of the knee. COMPARISON: None. FINDINGS: Normal visualized distal femur. Normal visualized proximal tibia and fibula. Normal proximal tibiofibular articulation. Normal medial femorotibial compartment. Normal lateral femorotibial compartment. Normal patellofemoral articulation. The soft tissue structures are unremarkable. RAD/Knee 4 or More Views IMPRESSION: Normal x-ray examination of the knee. Electronically Signed: Alf Johnson MD at 15:33 EDT , Service support ,
--- NOTE | 2020-05-05 14:25 | ED.DCSUM_ITS ---
History of Present Illness Chief Complaint: Fall Informant: Patient Narrative: 39-year-old female with extensive past medical history including hypertension and diabetes presents with concern for right knee pain. 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 States that she has pain with movement. Describes a sharp in nature. Denies any head trauma or loss of consciousness. Past Medical History - Allergies and Home Meds Allergies/Adverse Reactions: Allergies lidocaine Adverse Reaction (Intermediate, Verified 05/05/20 14:10) Hives STEROIDS Allergy (Uncoded 05/05/20 14:10) Hives Primary Care Physician: Zeferino Leon MD [Primary Care Provider] - Prior records reviewed: Yes Past Medical History: - - HTN, diabetes Surgical History: cholecystectomy Smoking Status: Never smoker - Family History Paternal Family History: Family History (Last Updated 04/26/20 @ 10:30 by Adriana Blackwell) Father Diabetes Myocardial infarction Pancreatic cancer Mother Alcohol abuse Drug abuse Grandfather Diabetes Grandmother Lung cancer Grandmother Heart disease Family History: Reports: Diabetes, High Cholesterol, Heart Disease, Hypertension Maternal Family History: Family History (Last Updated 04/26/20 @ 10:30 by Adriana Blackwell) Father Diabetes Myocardial infarction Pancreatic cancer Mother Alcohol abuse Drug abuse Grandfather Diabetes Grandmother Lung cancer Grandmother Heart disease Family History: Reports: - Review of Systems General: Denies: Chills, Fever, Sweats Eyes: Denies: Visual changes - bilaterally, Diplopia ENT: Denies: Rhinorrhea, Sore throat Cardiovascular: Denies: Chest pain, Palpitations Respiratory: Denies: Dyspnea, Cough, Dyspnea on exertion Gastrointestinal: Denies: Abdominal pain, Nausea, Vomiting, Diarrhea, Melena, Hematochezia Genitourinary: Denies: Dysuria, Hematuria, Frequency Musculoskeletal: Reports: Arthralgias. Denies: Back pain, Extremity Pain Skin: Denies: Rash, Wounds Neurological: Denies: Headache, Weakness, Numbness Physical Exam Vital Signs/Narrative: Vital Signs Temp Pulse Resp BP Pulse Ox 05/05/20 14:05 96.8 F L 84 18 175/104 H 96 General: Well nourished, Well developed, No Acute Distress Head: Normocephalic, Atraumatic Eyes: Perrl, EOMI ENT: Moist mucous membranes, No rhinorrhea Neck: Supple, Nontender Cardiovascular: Regular rate, Regular rhythm, No murmurs Respiratory: No distress, CTA bilaterally, Chest nontender Abdomen: Soft, Nontender, Nondistended, Normal bowel sounds Back: Nontender, Normal Inspection Extremities: No edema, - - TTP of the right knee, foot, and ankle. Strong and palpable pulses. No loss of sensation. Extensor mechanism intact. Skin: Normal color, No rash Neurological: Alert, Oriented x3, Cranial nerves II-XII grossly intact, Normal Strength, Normal Sensation Psychological: Normal affect, Normal Mood Diagnostic/Tx/Re-eval Clinical Impression(s) from Imaging Studies Foot X-Ray 05/05/20 14:24 IMPRESSION: Calcaneal spurs, otherwise unremarkable right foot Electronically Signed: Alf Johnson MD at 15:34 EDT , Service support , Knee X-Ray 05/05/20 14:24 IMPRESSION: Normal x-ray examination of the knee. Electronically Signed: Alf Johnson MD at 15:33 EDT , Service support , Ankle X-Ray 05/05/20 14:35 IMPRESSION: Calcaneal spurs, otherwise unremarkable right ankle Electronically Signed: Alf Johnson MD at 15:33 EDT , Service support , - Medical Decision Making Appears well nontoxic. Imaging negative. Patient given naproxen in the emergency department as well as for home. Patient advised on rest, ice, compression, elevation. Patient advised to follow-up with occupational health. Discharged home in stable condition. ED Disposition - Plan for ED Patient: Disposition: Home or Assisted Living Diagnosis: Fall, Contusion of right knee, Right ankle sprain Instructions: ED EXTREMITY CONTUSION Lower, ED Sprain Ankle Prescriptions: Naproxen 500 mg PO BID PRN PRN #10 tab PRN Reason: Pain Score 1-10 Transmission Status: Received by [facility] Referrals: Zeferino Leon MD [Primary Care Provider] -
--- NOTE | 2020-05-05 14:35 | RAD_ITS ---
STUDY: X-RAY - RIGHT ANKLE REASON FOR EXAM: Female, 39 years old. pt fell, continuous pain, most pain in foot and ankle TECHNIQUE: 3 view(s) of the ankle. COMPARISON: None. FINDINGS: Normal visualized distal tibia and fibula. Normal medial and lateral malleoli. Normal tibiotalar articulation and ankle mortise. Normal visualized talus. Calcaneal spurs The visualized subtalar, talonavicular, calcaneocuboid and tarsal articulations are normal. The soft tissue structures are unremarkable. RAD/Ankle min 3 Views IMPRESSION: Calcaneal spurs, otherwise unremarkable right ankle Electronically Signed: Alf Johnson MD at 15:33 EDT , Service support ,
[2020-05-05 16:35] VITALS: O2SAT 97
[2020-05-05] MEDS: Naproxen 500 MG Tablet PO (16:37)
== END 2020-05-05 16:37 | disposition home or self-care (01) ==
PROVIDERS: Emergency Provider Emergency Medicine; PCP Family Medicine
DX: S80.01XA Contusion of right knee, initial encounter (principal); S93.401A Sprain of unspecified ligament of right ankle, initial encounter; W01.0XXA Fall on same level from slipping, tripping and stumbling without subsequent striking against object, initial encounter; Z82.49 Family history of ischemic heart disease and other diseases of the circulatory system; Z90.49 Acquired absence of other specified parts of digestive tract; M77.31 Calcaneal spur, right foot; E11.9 Type 2 diabetes mellitus without complications; I10 Essential (primary) hypertension
CPT/HCPCS: 73564; 73610; 73630; 99283

== ENCOUNTER → 2020-05-13 07:07 | Outpatient (CLI) | payer OTHER, SELFPAY ==
[2020-05-05 14:05] VITALS: BMI 46.5
== END ==
PROVIDERS: PCP Family Medicine
DX: T65.81 Toxic effect of latex (principal)
CPT/HCPCS: 36415

== ENCOUNTER 2020-05-15 06:44 | Emergency (ER) | payer OTHER, SELFPAY ==
[2020-05-15 06:46] VITALS: BP 156/84; PULSE 94; RESP 18; TEMP 36.9; O2SAT 97; BMI 20.3
--- NOTE | 2020-05-15 07:04 | EKG12_ITS ---
Test Reason : Blood Pressure : / mmHG Vent. Rate : 090 BPM Atrial Rate : 090 BPM P-R Int : 136 ms QRS Dur : 086 ms QT Int : 362 ms P-R-T Axes : 007 -09 090 degrees QTc Int : 442 ms Normal sinus rhythm Low voltage QRS Nonspecific ST and T wave abnormality Abnormal ECG Confirmed by ANASTASIYA SHEARER, DALLIN ([id number]), dictionary editor PRISCILA FERRERA ([id number]) on 05/16/2020 1:14:21 PM Referred By: JAYLENE Confirmed By:DALLIN LANGFORD MD
--- NOTE | 2020-05-15 07:09 | ED.DCSUM_ITS ---
History of Present Illness Chief Complaint: General Illness Informant: Patient Onset: Days Context: Gradual Onset Timing: Continuous Quality: Elevated liver enzymes, white count, blood sugar not feeling well Location: Generalized Current Severity: Moderate Maximum Severity: Moderate Worsened by: Unknown Relieved by: Nothing Associated Symptoms: Malaise, frequency, polydipsia, flushed sensation Narrative: Patient is a 39-year-old woman who presents because of not feeling well. She states she cannot complete tasks at work. She had blood work done recently which revealed liver enzymes that were 5-10 times upper end of normal. She reports polyuria, polydipsia, and elevated blood sugar. Blood sugars have been between 304 100. Normal is 120. She states she feels flushed. Last time she had a similar presentation was diagnosed with a serious urinary tract infection . She complains of subjective fever and chills. She states she took a hot shower this morning and still felt cold. She does report pain occipital area. There is no history of trauma. She has complained of intermittent blurred vision. She denies double vision or loss of vision. She denies ringing or ears, decreased hearing or ear pain. She denies rhinorrhea, congestion or postnasal drainage. She denies sore throat. She denies chest pain. She denies cough or dyspnea. She does report nausea without vomiting or diarrhea. She also reports right-sided abdominal pain. The abdominal pain is predominately right upper quadrant and radiates through to her back. She is status post cholecystectomy. She denies dysuria or hematuria. She has not noted change in color of her skin. She does report dark urine. Prior similar symptoms: Yes - Due to urinary tract infection in the past Recent Illness/Hospitalization: No - Past Medical History (1) Degeneration of intervertebral disc of lumbosacral region Status: Chronic (2) Elevated triglycerides with high cholesterol Status: Chronic (3) History of obstructive sleep apnea Status: Chronic (4) History of type 2 diabetes mellitus Status: Chronic (5) Hypertension Status: Chronic (6) Migraines Status: Chronic (7) Nonalcoholic hepatosteatosis Status: Chronic (8) Obesity Status: Chronic Past Medical History - Allergies and Home Meds Allergies/Adverse Reactions: Allergies lidocaine Adverse Reaction (Intermediate, Verified 05/15/20 06:50) Hives STEROIDS Allergy (Uncoded 05/15/20 06:50) Hives Primary Care Physician: Zeferino Leon MD [Primary Care Provider] - Prior records reviewed: Yes Surgical History: cholecystectomy Lives: Alone Smoking Status: Never smoker Alcohol: None Drugs: None - Family History Paternal Family History: Family History (Last Updated 04/26/20 @ 10:30 by Adriana Blackwell) Father Diabetes Myocardial infarction Pancreatic cancer Mother Alcohol abuse Drug abuse Grandfather Diabetes Grandmother Lung cancer Grandmother Heart disease Family History: Reports: Diabetes, High Cholesterol, Heart Disease, Hypertension Maternal Family History: Family History (Last Updated 04/26/20 @ 10:30 by Adriana Blackwell) Father Diabetes Myocardial infarction Pancreatic cancer Mother Alcohol abuse Drug abuse Grandfather Diabetes Grandmother Lung cancer Grandmother Heart disease Family History: Reports: - Review of Systems General: Reports: Chills, Fever, Malaise, Weight loss. Denies: Subjective, Sweats Eyes: Reports: Blurred Vision - bilaterally. Denies: Visual changes - bilaterally, Diplopia ENT: Denies: Bilateral ear pain, Rhinorrhea, Sore throat Cardiovascular: Denies: Chest pain Respiratory: Denies: Dyspnea, Cough, Sputum, Dyspnea on exertion, Orthopnea Gastrointestinal: Reports: Abdominal pain, Nausea. Denies: Vomiting, Diarrhea, Constipation, Melena, Hematochezia Genitourinary: Reports: Frequency. Denies: Dysuria, Hematuria Musculoskeletal: Denies: Myalgias, Arthralgias, Neck pain, Back pain, Swelling, Extremity Pain Skin: Denies: Rash, Wounds Neurological: Reports: Headache, Weakness. Denies: Parasthesia, Numbness Endocrine: Reports: Polyuria, Polydipsia. Denies: Heat intolerance, Cold intolerance Hematologic: Denies: Easy bruising, Easy bleeding Physical Exam Vital Signs/Narrative: Vital Signs Temp Pulse Resp BP Pulse Ox 05/15/20 06:46 98.5 F 94 18 156/84 H 97 Inital Vital Signs reviewed: Yes General: Well nourished, Well developed, Obese, No Acute Distress Head: Normocephalic, Atraumatic, - - Since face is erythematous over the forehead right and left maxillary region and chin area. Eyes: Perrl, EOMI, Scleral icterus. Negative for: Pale conjunctiva ENT: No rhinorrhea, TM's clear, Dry mucous membranes. Negative for: Nasal congestion, Sinus tenderness Neck: Supple, Nontender, No lymphadenopathy, No JVD Abdomen: Soft, No masses, Tender - There is tenderness right upper quadrant. Unable to determine if patient has a fluid wave., Hypoactive bowel sounds. Negative for: Nontender, Nondistended, Normal bowel sounds, Guarding, Rebound tenderness, Hyperactive bowel sounds, Hepatomegaly, Splenomegaly, Mass, P ulsatile mass, Ventral hernia, Inguinal hernia, Hernia reducible, Hernia irreducible, Psoas sign, Obturator sign, Rovsig's sign Rectal: Deferred Back: Nontender, Normal Inspection. Negative for: CVA tenderness Extremities: Nontender, No edema Skin: No rash, Jaundice. Negative for: Cyanosis, Diaphoresis, No Trauma, Pallor Diagnostic/Tx/Re-eval Laboratory Results 05/15/20 05/15/20 05/15/20 07:40 07:40 07:40 WBC 8.0 RBC 4.25 Hgb 12.3 Hct 39.0 MCV 91.8 MCH 28.9 MCHC 31.5 L RDW Std Deviation 45.5 H RDW Coeff of Itzel 13.8 Plt Count 139 L MPV 9.7 Immature Gran % (Auto) 1.100 H Neut % (Auto) 88.9 H Lymph % (Auto) 5.7 L [place] % (Auto) 3.2 Eos % (Auto) 0.7 Baso % (Auto) 0.4 Absolute Neuts (auto) 7.1 Absolute Lymphs (auto) 0.46 L Nucleated RBC % 0 PT 13.9 INR 1.1 APTT 32.0 Sodium 134 L Potassium 4.2 Chloride 100 Carbon Dioxide 24.0 Anion Gap 10 BUN 12 Creatinine 0.81 Estim Creat Clear Calc 209.27 Est GFR (MDRD) Af Amer 102 Est GFR (MDRD) Non-Af 84 BUN/Creatinine Ratio 14.8 Glucose 246 H Lactic Acid Calcium 8.7 Total Bilirubin 0.80 AST 65 H ALT 105 H Alkaline Phosphatase 90 Total Protein 7.5 Albumin 3.3 Globulin 4.2 Albumin/Globulin Ratio 0.8 L Lipase 129 Urine Color Urine Clarity Urine pH Ur Specific [place] Urine Protein Urine Glucose (UA) Urine Ketones Urine Occult Blood Urine Nitrite Urine Bilirubin Urine Urobilinogen Ur Leukocyte Esterase Urine RBC Urine WBC Ur Squamous Epith Cells Urine Bacteria Urine Mucus 05/15/20 05/15/20 07:40 07:40 WBC RBC Hgb Hct MCV MCH MCHC RDW Std Deviation RDW Coeff of Itzel Plt Count MPV Immature Gran % (Auto) Neut % (Auto) Lymph % (Auto) [place] % (Auto) Eos % (Auto) Baso % (Auto) Absolute Neuts (auto) Absolute Lymphs (auto) Nucleated RBC % PT INR APTT Sodium Potassium Chloride Carbon Dioxide Anion Gap BUN Creatinine Estim Creat Clear Calc Est GFR (MDRD) Af Amer Est GFR (MDRD) Non-Af BUN/Creatinine Ratio Glucose Lactic Acid 2.8 H* Calcium Total Bilirubin AST ALT Alkaline Phosphatase Total Protein Albumin Globulin Albumin/Globulin Ratio Lipase Urine Color Yellow Urine Clarity Clear Urine pH 6.5 Ur Specific [place] 1.010 Urine Protein 30 H Urine Glucose (UA) 100 H Urine Ketones Negative Urine Occult Blood Negative Urine Nitrite Negative Urine Bilirubin Negative Urine Urobilinogen Normal Ur Leukocyte Esterase Negative Urine RBC 0 SEEN Urine WBC 0 SEEN Ur Squamous Epith Cells 0-5 SEEN Urine Bacteria 0 SEEN Urine Mucus 0 SEEN [place] elevated and is most likely due to her diabetic medication. There is no evidence of urinary tract infection. Patient is presently on Macrobid. Blood sugar is elevated at 246. CO2 and anion gap are normal. Liver enzymes are slightly elevated. They have been elevated in the past. Patient does not appear as flushed at the present time. She was reevaluated 0940. - Rhythm Strip Rhythm Strip: Sinus Rhythm Rate: 96 Ectopy: None - EKG Initial EKG Interpretation: Sinus Rhythm - Sinus rhythm with a ventricular rate of 90. NH interval is 136 ms. QRS duration 86 ms. QT duration 362 ms. [place] is normal. Voltages borderline low. This may be due to body habitus. The EKG is otherwise unremarkable. - Medical Decision Making With reports of chills, elevated blood sugar frequency need to evaluate for infectious etiology. Patient does appear jaundiced. She is status post cholecystectomy 13 years ago. This may represent any choledocholithiasis. Liver enzymes were obtained as well as lipase. UA was obtained to evaluate for urinary tract infection. Patient does not appear well. Once laboratory results have been resulted and reviewed by me will determine if patient requires ultrasound versus CAT scan versus any type of imaging. She did receive a liter of normal saline since she is clinically mild dehydrated and we will treat her hyperglycemia. Patient was informed of her test results. Patient was informed that the pharmacist needs to be aware of her lab results. And that her present medication to treat her type 2 diabetes probably is the cause of her elevated lactate. This can make her feel not well. Plan is to discharge to home with appropriate home-going instructions. ED Disposition - Plan for ED Patient: Disposition: Home or Assisted Living Diagnosis: Lactic acidosis due to diabetes mellitus, Nonalcoholic hepatosteatosis, Hyperglycemia due to type 2 diabetes mellitus Instructions: ED Diabetic Hyperglycemia Referrals: Zeferino Leon MD [Primary Care Provider] - Keep Oanh appointment
[2020-05-15 07:56] LABS: Bacteria 0 SEEN /hpf (None Seen); Mucous, Urine 0 SEEN /hpf (<or=2+); Red Blood Cells-Urine 0 SEEN /hpf (0-5); White Blood Cells 0 SEEN /hpf (0-5)
[2020-05-15 08:03] LABS: Absolute Lymphocyte Count 0.46 X10^3/uL (0.83-4.51); Absolute Neutrophil Count 7.1 X10^3/uL (2.0-7.7); Basophil# 0.03 X10^3/uL; Basophil% 0.4 % (0-1); Eosinophil# 0.06 X10^3/uL; Eosinophils% 0.7 % (0-5); Hemoglobin 12.3 g/dL (12.0-15.0); Lymphocyte # 0.46 X10^3/ul (4.0); Lymphocyte % 5.7 % (19-41); Mean Corp Hgb Conc 31.5 g/dL (32-36); Mean Corpuscular Hgb 28.9 pg (27.0-32.0); Mean Corpuscular Volume 91.8 fL (81-99); Mean Platelet Vol. 9.7 fl (6.2-12.0); Monocyte# 0.26 X10^3/uL; Monocyte% 3.2 % (0-10); NRBC Flagged by Analyzer 0 % (0-5); Neutrophil # 7.12 X10^3/uL (2.7-7.7); Neutrophil % 88.9 % (47-70); POSITIVE DIFFERENTIAL YES; Platelet Count 139 K/mm3 (150-450); RBC Distribution Width CV 13.8 % (11.6-14.6); RBC Distribution Width SD 45.5 fl (35.1-43.9); Red Blood Count 4.25 M/mm3 (4.2-5.4)
[2020-05-15 08:08] LABS: Differential Indicated SCAN CRITERIA MET
[2020-05-15 08:10] LABS: Color, Urine Yellow (Yellow); Glucose, Dipstick 100 mg/dl (Normal); Ketone-Dipstick Negative (Negative); Leukocyte Esterase-Dipstick Negative /ul (Negative); Nitrite-Dipstick Negative (Negative); Occult Blood-Urine Negative /ul (Negative); Protein-Dipstick 30 mg/dl (Negative); Urine Bilirubin Dipstick Negative (Negative); Urine Clarity Clear (Clear); Urine Urobilinogen Normal (Normal); Urine pH 6.5 (5.0 - 8.0)
[2020-05-15 08:12] VITALS: TEMP 37.1
[2020-05-15] MEDS: 0.9% Normal Saline 1,000 ML 999 ML IV (08:14)
[2020-05-15 08:15] LABS: ALB/GLOB Ratio 0.8 RATIO (0.9-2.4); AST(SGOT) 65 U/L (15-37); Alanine Aminotransfer ALT/SGPT 105 U/L (13-56); Albumin, Serum 3.3 g/dL (3.2-5.0); Alkaline Phosphatase 90 U/L (45-117); Anion Gap 10 (5-15); BUN 12 mg/dL (7-18); BUN/Creat Ratio 14.8 RATIO (10-20); Calcium,Total 8.7 mg/dL (8.5-10.1); Chloride 100 mmol/L (98-107); Creatinine, Serum 0.81 mg/dL (0.55-1.02); EST Glomerular Filtration Rate 84 mL/min (>60); Est Glom Filt Rate - Afr Amer 102 mL/min (>60); Estimated Creatinine Clearance 209.27 ml/min; Globulin 4.2 g/dL (2.2-4.2); Glucose 246 mg/dL (74-106); Lipase 129 U/L (73-393); Potassium 4.2 mmol/L (3.5-5.1); Protein, Total 7.5 g/dL (6.4-8.2); Sodium Level 134 mmol/L (136-145)
[2020-05-15 08:19] LABS: Squamous Epithelial Cells - UA 0-5 SEEN /hpf (5-10)
[2020-05-15 08:24] LABS: International Normalized Ratio 1.1; Prothrombin Time (Protime)PT. 13.9 SECONDS (11.7-14.9)
[2020-05-15 08:35] LABS: Lactic Acid 2.8 mmol/L (0.4-1.9)
[2020-05-15 10:13] VITALS: BP 140/83; PULSE 87; RESP 18; TEMP 37.2; O2SAT 99
[2020-05-15 11:54] LABS: Reflex Lactate? Y
== END 2020-05-15 10:14 | disposition home or self-care (01) ==
PROVIDERS: Emergency Provider Emergency Medicine; PCP Family Medicine
DX: E11.65 Type 2 diabetes mellitus with hyperglycemia (principal); K76.0 Fatty (change of) liver, not elsewhere classified; E87.2 Acidosis; E66.9 Obesity, unspecified; E78.00 Pure hypercholesterolemia, unspecified; G47.33 Obstructive sleep apnea (adult) (pediatric); I10 Essential (primary) hypertension; Z82.49 Family history of ischemic heart disease and other diseases of the circulatory system; Z90.49 Acquired absence of other specified parts of digestive tract; M51.37 Other intervertebral disc degeneration, lumbosacral region; Z87.440 Personal history of urinary (tract) infections
CPT/HCPCS: 80053; 81001; 83605; 83690; 85025; 85610; 85730; 87040; 87086; 87088; 93005; 96360; 99285; J7030; A4216

== ENCOUNTER → 2020-05-19 08:40 | Outpatient (CLI) | payer OTHER, SELFPAY ==
[2020-05-15 06:46] VITALS: BMI 20.3
[2020-05-19 08:57] LABS: Absolute Lymphocyte Count 2.61 X10^3/uL (0.83-4.51); Absolute Neutrophil Count 4.5 X10^3/uL (2.0-7.7); Basophil# 0.05 X10^3/uL; Basophil% 0.6 % (0-1); Eosinophil# 0.18 X10^3/uL; Eosinophils% 2.3 % (0-5); Hematocrit 40.5 % (37-47); Hemoglobin 13.5 g/dL (12.0-15.0); Lymphocyte # 2.61 X10^3/ul (4.0); Lymphocyte % 33.4 % (19-41); Mean Corp Hgb Conc 33.3 g/dL (32-36); Mean Corpuscular Hgb 29.7 pg (27.0-32.0); Mean Corpuscular Volume 89.2 fL (81-99); Mean Platelet Vol. 9.3 fl (6.2-12.0); Monocyte# 0.35 X10^3/uL; Monocyte% 4.5 % (0-10); NRBC Flagged by Analyzer 0 % (0-5); Neutrophil # 4.52 X10^3/uL (2.7-7.7); Neutrophil % 57.9 % (47-70); Platelet Count 223 K/mm3 (150-450); RBC Distribution Width CV 13.5 % (11.6-14.6); RBC Distribution Width SD 44.1 fl (35.1-43.9); Red Blood Count 4.54 M/mm3 (4.2-5.4); White Blood Count 7.8 K/mm3 (4.4-11.0)
[2020-05-19 09:41] LABS: BUN 13 mg/dL (7-18); Creatinine, Serum 0.68 mg/dL (0.55-1.02); Glucose 131 mg/dL (74-106)
[2020-05-19 09:42] LABS: AST(SGOT) 146 U/L (15-37); Alanine Aminotransfer ALT/SGPT 132 U/L (13-56); Albumin, Serum 3.8 g/dL (3.2-5.0); Alkaline Phosphatase 90 U/L (45-117); Anion Gap 7 (5-15); BUN/Creat Ratio 19.2 RATIO (10-20); Bilirubin, Direct 0.11 mg/dL (0.00-0.30); Calcium,Total 9.1 mg/dL (8.5-10.1); Chloride 106 mmol/L (98-107); EST Glomerular Filtration Rate 104 mL/min (>60); Est Glom Filt Rate - Afr Amer 125 mL/min (>60); Globulin 4.5 g/dL (2.2-4.2); Lipase 143 U/L (73-393); Protein, Total 8.3 g/dL (6.4-8.2); Sodium Level 137 mmol/L (136-145)
[2020-05-19 10:05] LABS: Hemoglobin A1c 7.9 % (3.8-5.6)
[2020-05-20 09:08] LABS: HEPATITIS B SURFACE AG Negative (Negative); Hepatitis A IgM Antibody Negative (Negative); Hepatitis B Core AB IgM Negative (Negative)
[2020-05-20 09:17] LABS: C-Peptide 6.1 ng/mL (1.1-4.4); Hep C Antibodies 0.1 s/co ratio (0.0-0.9)
== END ==
PROVIDERS: PCP Family Medicine; Referring Provider Family Medicine; Visit Provider Family Medicine
DX: R74.8 Abnormal levels of other serum enzymes (principal); R10.9 Unspecified abdominal pain; E11.29 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 kidney complication; R80.9 Proteinuria, unspecified; Z79.4 Long term (current) use of insulin; K76.0 Fatty (change of) liver, not elsewhere classified
CPT/HCPCS: 36415; 80048; 80074; 80076; 83036; 83690; 84681; 85025

== ENCOUNTER → 2020-05-26 11:44 | Outpatient (CLI) | payer OTHER, SELFPAY ==
[2020-05-15 06:46] VITALS: BMI 20.3
--- NOTE | 2020-05-26 11:47 | US_ITS ---
STUDY: ABDOMINAL ULTRASOUND - RIGHT UPPER QUADRANT REASON FOR VISIT: Female, 39 years old ELEVATED LFTS TECHNIQUE: Ultrasound evaluation of the right upper quadrant was performed with real-time and static matias-scale imaging. TECHNICAL QUALITY: Adequate. COMPARISON: CT scan from 08/28/2019 FINDINGS: Liver: The liver measures 20.6 cm. There is increased echogenicity consistent with fatty infiltration. The bile ducts are within normal limits. There is hepatic color flow. The direction of portal flow is hepatopetal. There is no demonstrated mass lesion. Gallbladder: The patient is status post cholecystectomy. Common Bile Duct (C.B.D.): The common bile duct measures 5 mm. Pancreas: Normal size of the head, body and tail of the pancreas. There is normal echogenicity of the pancreas. There is no demonstrated pancreatic mass or cyst. Right Kidney: Normal size of the right kidney. The right kidney measures 11.8 x 6.2 x 4.6 cm. Normal renal cortex. The right cortex measures 1.5 cm. There is no demonstrated renal mass or cyst. There is no right hydronephrosis. US/Abdomen Limited IMPRESSION: Hepatomegaly with diffuse fatty infiltration, no discrete lesion Electronically Signed: Alf Johnson MD at 12:30 EDT , Service support ,
== END ==
PROVIDERS: PCP Family Medicine; Referring Provider Family Medicine; Visit Provider Family Medicine
DX: K76.0 Fatty (change of) liver, not elsewhere classified (principal); R74.8 Abnormal levels of other serum enzymes
CPT/HCPCS: 76705

== ENCOUNTER → 2020-05-28 11:44 | Outpatient (CLI) | payer OTHER, SELFPAY ==
[2020-05-15 06:46] VITALS: BMI 20.3
[2020-05-28 12:14] LABS: Absolute Lymphocyte Count 2.35 X10^3/uL (0.83-4.51); Basophil# 0.04 X10^3/uL; Basophil% 0.5 % (0-1); Eosinophil# 0.14 X10^3/uL; Eosinophils% 1.8 % (0-5); Hematocrit 41.5 % (37-47); Hemoglobin 13.2 g/dL (12.0-15.0); Lymphocyte # 2.35 X10^3/ul (4.0); Lymphocyte % 29.7 % (19-41); Mean Corp Hgb Conc 31.8 g/dL (32-36); Mean Corpuscular Hgb 28.8 pg (27.0-32.0); Mean Corpuscular Volume 90.6 fL (81-99); Mean Platelet Vol. 9.4 fl (6.2-12.0); Monocyte# 0.33 X10^3/uL; Monocyte% 4.2 % (0-10); NRBC Flagged by Analyzer 0 % (0-5); Neutrophil # 4.95 X10^3/uL (2.7-7.7); Neutrophil % 62.5 % (47-70); Platelet Count 204 K/mm3 (150-450); RBC Distribution Width CV 13.6 % (11.6-14.6); RBC Distribution Width SD 44.2 fl (35.1-43.9); Red Blood Count 4.58 M/mm3 (4.2-5.4); White Blood Count 7.9 K/mm3 (4.4-11.0)
[2020-05-28 12:30] LABS: Internal QC Validated? YES +Cl - CLEAR BKGD; Monotest Negative (Negative)
[2020-05-28 12:35] LABS: AST(SGOT) 89 U/L (15-37); Alanine Aminotransfer ALT/SGPT 133 U/L (13-56); Albumin, Serum 3.9 g/dL (3.2-5.0); Alkaline Phosphatase 85 U/L (45-117); Bilirubin, Direct 0.14 mg/dL (0.00-0.30); Protein, Total 7.9 g/dL (6.4-8.2)
[2020-05-30 11:26] LABS: CMV Acute Antibody IgM 55.9 AU/mL (0.0-29.9); CMV Antibody IgG > 10.00 U/mL (0.00-0.59)
== END ==
PROVIDERS: PCP Family Medicine; Referring Provider Family Medicine; Visit Provider Family Medicine
DX: R53.83 Other fatigue (principal); R05 Cough; R74.8 Abnormal levels of other serum enzymes; K76.0 Fatty (change of) liver, not elsewhere classified
CPT/HCPCS: 36415; 80076; 85025; 86308; 86644; 86645

== ENCOUNTER → 2020-06-08 09:15 | Outpatient (CLI) | payer OTHER, SELFPAY ==
[2020-05-15 06:46] VITALS: BMI 20.3
[2020-06-08 09:47] LABS: Absolute Lymphocyte Count 2.47 X10^3/uL (0.83-4.51); Absolute Neutrophil Count 4.6 X10^3/uL (2.0-7.7); Basophil# 0.05 X10^3/uL; Basophil% 0.6 % (0-1); Eosinophil# 0.23 X10^3/uL; Eosinophils% 2.9 % (0-5); Hematocrit 39.1 % (37-47); Hemoglobin 12.7 g/dL (12.0-15.0); Lymphocyte # 2.47 X10^3/ul (4.0); Mean Corp Hgb Conc 32.5 g/dL (32-36); Mean Corpuscular Hgb 29.7 pg (27.0-32.0); Mean Corpuscular Volume 91.4 fL (81-99); Mean Platelet Vol. 9.2 fl (6.2-12.0); Monocyte# 0.44 X10^3/uL; Monocyte% 5.5 % (0-10); NRBC Flagged by Analyzer 0 % (0-5); Neutrophil # 4.58 X10^3/uL (2.7-7.7); Neutrophil % 57.4 % (47-70); Platelet Count 176 K/mm3 (150-450); RBC Distribution Width SD 45.9 fl (35.1-43.9); Red Blood Count 4.28 M/mm3 (4.2-5.4)
[2020-06-08 10:21] LABS: ALB/GLOB Ratio 0.9 RATIO (0.9-2.4); AST(SGOT) 79 U/L (15-37); Alanine Aminotransfer ALT/SGPT 114 U/L (13-56); Albumin, Serum 3.4 g/dL (3.2-5.0); Alkaline Phosphatase 99 U/L (45-117); Anion Gap 6 (5-15); BUN 10 mg/dL (7-18); BUN/Creat Ratio 13.9 RATIO (10-20); Calcium,Total 8.3 mg/dL (8.5-10.1); Chloride 109 mmol/L (98-107); Creatinine, Serum 0.72 mg/dL (0.55-1.02); EST Glomerular Filtration Rate 97 mL/min (>60); Est Glom Filt Rate - Afr Amer 117 mL/min (>60); Globulin 3.8 g/dL (2.2-4.2); Glucose 207 mg/dL (74-106); Potassium 4.1 mmol/L (3.5-5.1); Protein, Total 7.2 g/dL (6.4-8.2); Sodium Level 138 mmol/L (136-145)
== END ==
PROVIDERS: PCP Family Medicine; Referring Provider Family Medicine; Visit Provider Family Medicine
DX: R74.8 Abnormal levels of other serum enzymes (principal); D72.829 Elevated white blood cell count, unspecified
CPT/HCPCS: 36415; 80053; 85025

== ENCOUNTER → 2020-07-09 07:48 | Outpatient (CLI) | payer OTHER, SELFPAY ==
[2020-06-16 15:16] VITALS: BMI 20.3
[2020-07-09 08:26] LABS: Absolute Lymphocyte Count 2.76 X10^3/uL (0.83-4.51); Absolute Neutrophil Count 5.8 X10^3/uL (2.0-7.7); Basophil# 0.05 X10^3/uL; Basophil% 0.5 % (0-1); Eosinophil# 0.21 X10^3/uL; Eosinophils% 2.2 % (0-5); Hematocrit 39.3 % (37-47); Hemoglobin 12.8 g/dL (12.0-15.0); Lymphocyte # 2.76 X10^3/ul (4.0); Lymphocyte % 29.3 % (19-41); Mean Corp Hgb Conc 32.6 g/dL (32-36); Mean Corpuscular Hgb 29.2 pg (27.0-32.0); Mean Corpuscular Volume 89.5 fL (81-99); Mean Platelet Vol. 9.4 fl (6.2-12.0); Monocyte% 5.3 % (0-10); NRBC Flagged by Analyzer 0 % (0-5); Neutrophil # 5.77 X10^3/uL (2.7-7.7); Neutrophil % 61.3 % (47-70); Platelet Count 211 K/mm3 (150-450); RBC Distribution Width SD 45.2 fl (35.1-43.9); Red Blood Count 4.39 M/mm3 (4.2-5.4); White Blood Count 9.4 K/mm3 (4.4-11.0)
[2020-07-09 08:33] LABS: AST(SGOT) 73 U/L (15-37); Alanine Aminotransfer ALT/SGPT 85 U/L (13-56); Albumin, Serum 3.8 g/dL (3.2-5.0); Alkaline Phosphatase 92 U/L (45-117); Bilirubin, Direct 0.16 mg/dL (0.00-0.30); Globulin 4.1 g/dL (2.2-4.2); Protein, Total 7.9 g/dL (6.4-8.2)
== END ==
PROVIDERS: PCP Family Medicine; Visit Provider Family Medicine
DX: B25.9 Cytomegaloviral disease, unspecified (principal)
CPT/HCPCS: 36415; 80076; 85025

== ENCOUNTER 2020-07-11 14:28 | Emergency (ER) | payer OTHER, SELFPAY ==
[2020-06-16 15:16] VITALS: BMI 20.3
[2020-07-11 14:29] VITALS: BP 162/87; PULSE 117; RESP 20; TEMP 36.8; O2SAT 97; BMI 45.1
--- NOTE | 2020-07-11 14:48 | RAD_ITS ---
STUDY: X-RAY CHEST REASON FOR EXAM: Female, 40 years old. [place] TECHNIQUE: Frontal view of the chest COMPARISON: 03/23/20 FINDINGS: The lungs are clear. There are no pleural effusions. There is no pneumothorax. The heart is stable in size. The visualized osseous structures are within normal limits. RAD/Chest 1 View (Portable) IMPRESSION: No acute thoracic pathology. Electronically Signed: Raghav Shea, at 15:55 EDT Tel , Service support ,
--- NOTE | 2020-07-11 14:48 | ED.VIS.GEN ---
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 She feels lightheaded, has been very thirsty today, has noticed that she is now urinating more frequently, but has not checked her blood sugar today. She has some chest discomfort but states that she gets frequent flareups of costochondritis, she can push on her parasternal area bilaterally and make the chest discomfort worse, and she states it feels like that. She has noticed some dyspnea with exertion in the last couple hours and that is new for her. She has had some allergy-like symptoms over the last couple days, with watery eyes, sneezing, and a minor nonproductive cough. No fevers or chills. States this is feeling like her seasonal allergies. She does not have asthma but has felt a little wheezing today. She last checked her blood sugar yesterday over 24 hours ago, it was 120s. She has been compliant with her Trulicity and glipizide. Patient later states that her urinary frequency started 2 days ago, worse today, so she started taking Macrobid yesterday that she had leftover from some other time. - Past Medical History (1) Nephrolithiasis Status: Chronic (2) Elevated triglycerides with high cholesterol Status: Chronic (3) History of obstructive sleep apnea Status: Chronic (4) Hypertension Status: Chronic (5) Type 2 diabetes mellitus Status: Chronic (6) Fatty liver Status: Chronic Past Medical History - Allergies and Home Meds Allergies/Adverse Reactions: Allergies lidocaine Adverse Reaction (Intermediate, Verified 07/11/20 14:29) Hives STEROIDS Allergy (Uncoded 07/11/20 14:29) Hives Primary Care Physician: Zeferino Leon MD [Primary Care Provider] - Surgical History: cholecystectomy Smoking Status: Never smoker - Family History Paternal Family History: Family History (Last Reviewed 06/20/20 @ 15:52 by Jessie Lara) Father Diabetes Myocardial infarction Pancreatic cancer Mother Alcohol abuse Drug abuse Grandfather Diabetes Grandmother Lung cancer Grandmother Heart disease Family History: Reports: Diabetes, High Cholesterol, Heart Disease, Hypertension Maternal Family History: Family History (Last Reviewed 06/20/20 @ 15:52 by Jessie Lara) Father Diabetes Myocardial infarction Pancreatic cancer Mother Alcohol abuse Drug abuse Grandfather Diabetes Grandmother Lung cancer Grandmother Heart disease Family History: Reports: - Review of Systems General: Reports: Malaise - And lightheadedness. Denies: Chills, Fever, Sweats Eyes: Reports: - - Watery eyes. Denies: Visual changes - bilaterally, Diplopia ENT: Denies: Bilateral ear pain, Rhinorrhea, Sore throat Cardiovascular: Reports: Chest pain. Denies: Palpitations, Heart racing Respiratory: Reports: Cough, Dyspnea on exertion. Denies: Sputum, Orthopnea Gastrointestinal: Reports: Nausea. Denies: Abdominal pain, Vomiting, Diarrhea, Melena, Hematochezia Genitourinary: Denies: Dysuria, Hematuria, Frequency Musculoskeletal: Reports: Myalgias - Upper half of body only, Back pain - Upper, trapezius bilaterally. Denies: Swelling, Extremity Pain Skin: Denies: Rash, Wounds Neurological: Denies: Headache, Weakness, Numbness Psych: Denies: Suicidal thoughts, Suicidal ideations Endocrine: Reports: Polyuria, Polydipsia. Denies: Heat intolerance, Cold intolerance Physical Exam Vital Signs/Narrative: Vital Signs Temp Pulse Resp BP Pulse Ox 07/11/20 14:29 98.2 F 117 H 20 H 162/87 H 97 Inital Vital Signs reviewed: Yes General: Well nourished, Well developed, Obese, No Acute Distress - Conversive in full sentences Head: Normocephalic, Atraumatic Eyes: Perrl, EOMI ENT: Moist mucous membranes, No rhinorrhea, - - Facial flushing Neck: Supple, Nontender, No lymphadenopathy, No JVD Cardiovascular: Regular rate, Regular rhythm, No murmurs, Tachycardia - Mild Respiratory: No distress, CTA bilaterally, Chest nontender Abdomen: Soft, Nontender, Nondistended, Normal bowel sounds Back: Nontender, Normal Inspection. Negative for: CVA tenderness Extremities: Nontender, No edema. Negative for: Calf Tenderness Skin: Normal color, No rash, No Trauma Neurological: Alert, Oriented x3, Cranial nerves II-XII grossly intact, Normal Strength, Normal Sensation, Normal Gait Psychological: Normal affect, Normal Mood Diagnostic/Tx/Re-eval Impressions Chest X-Ray 07/11/20 14:48 IMPRESSION: No acute thoracic pathology. Electronically Signed: Raghav Shea, at 15:55 EDT Tel , Service support , 07/11/20 14:48 Chest 1 View (Portable) [RAD] Stat Laboratory Results 07/11/20 07/11/20 14:49 15:25 Urine Color Yellow Urine Clarity Sl. Cloudy Urine pH 5.0 Ur Specific [place] 1.025 Urine Protein 100 H Urine Glucose (UA) 1000 H Urine Ketones 5 H Urine Occult Blood 10 H Urine Nitrite Negative Urine Bilirubin Negative Urine Urobilinogen Normal Ur Leukocyte Esterase Negative Urine RBC 0-5 SEEN Urine WBC 0 SEEN Ur Squamous Epith Cells 0-5 SEEN Amorphous Sediment 1+ Urine Bacteria 0 SEEN Urine Mucus 0 SEEN POC Glucose 235 H - Medical Decision Making Patient had routine blood work performed 2 days ago, that was reviewed and unremarkable except for a blood sugar of 205, her liver enzymes were AST 73, ALT 85, these are much lower compared to what she had been, up to the 400s. Therefore I did not repeat all of that, we did a chest x-ray and a urinalysis, as well as a blood sugar. She was in the 230s, she had glycosuria with no signs of infection, so her hyperglycemia is the cause of some of the symptoms. However after Zofran, oral fluids, Toradol, and insulin, we brought her sugar down, she was still feeling poorly with myalgias in her shoulders and upper back, she started coughing more and caused posttussive emesis and persistent nausea. She is not dyspneic or hypoxic. 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 Given the variable presentation of COVID-19 disease, plan is to test her for that, she wants to wait for the results. She is well-appearing and in no distress. COVID-19 test returned negative. Repeat blood sugar is 204, coming down. Patient is comfortable going home and resting, she appears improved. Prescribed Phenergan to use as needed. ED Disposition - Plan for ED Patient: Disposition: Home or Assisted Living Diagnosis: Hyperglycemia due to type 2 diabetes mellitus, Viral syndrome Instructions: ED URI Viral, ED Diabetic Hyperglycemia Prescriptions: proMETHazine tablet [Phenergan] 25 mg PO Q6H PRN PRN #10 tab PRN Reason: Nausea Prescription Printed Referrals: Zeferino Leon MD [Primary Care Provider] - 3-5 Days if not improving
[2020-07-11] MEDS: Insulin Lispro 100 UNIT/ML INSULN.PEN 6 UNIT SC (14:55)
[2020-07-11] MEDS: Ondansetron ODT 4 MG Tablet 8 MG PO (14:56)
[2020-07-11 15:03] VITALS: PULSE 110; RESP 16
[2020-07-11] MEDS: Albuterol 2.5 MG/3 ML VIAL.NEB. INHALATION (15:03)
[2020-07-11 15:06] LABS: Bedside Glucose 235 mg/dL (70-110)
[2020-07-11 15:33] LABS: Bacteria 0 SEEN /hpf (None Seen); Mucous, Urine 0 SEEN /hpf (<or=2+); White Blood Cells 0 SEEN /hpf (0-5)
[2020-07-11] MEDS: Ketorolac 30 MG/ML Syringe IM (15:37)
[2020-07-11 16:08] LABS: Color, Urine Yellow (Yellow); Glucose, Dipstick 1000 mg/dl (Normal); Ketone-Dipstick 5 mg/dl (Negative); Leukocyte Esterase-Dipstick Negative /ul (Negative); Nitrite-Dipstick Negative (Negative); Occult Blood-Urine 10 /ul (Negative); Protein-Dipstick 100 mg/dl (Negative); Specific Gravity, Urine 1.025 (1.002-1.030); Urine Bilirubin Dipstick Negative (Negative); Urine Clarity Sl. Cloudy (Clear); Urine Urobilinogen Normal (Normal)
[2020-07-11 16:15] LABS: Amorphous Sediment 1+; Red Blood Cells-Urine 0-5 SEEN /hpf (0-5); Squamous Epithelial Cells - UA 0-5 SEEN /hpf (5-10)
[2020-07-11 16:51] LABS: Bedside Glucose 235 mg/dL (70-110)
[2020-07-11] MEDS: proMETHazine 25 MG Tablet PO (16:59)
[2020-07-11 17:05] LABS: Bedside Glucose 230 mg/dL (70-110)
[2020-07-11 18:10] LABS: Probe Check PASS; Specimen Processing Control PASS
[2020-07-11 18:30] LABS: Bedside Glucose 204 mg/dL (70-110)
[2020-07-11 18:52] VITALS: BP 145/81; RESP 15; O2SAT 98
== END 2020-07-11 18:54 | disposition home or self-care (01) ==
PROVIDERS: Emergency Provider Emergency Medicine; PCP Family Medicine
DX: E11.65 Type 2 diabetes mellitus with hyperglycemia (principal); B34.9 Viral infection, unspecified; E78.00 Pure hypercholesterolemia, unspecified; G47.33 Obstructive sleep apnea (adult) (pediatric); I10 Essential (primary) hypertension; K76.0 Fatty (change of) liver, not elsewhere classified; Z82.49 Family history of ischemic heart disease and other diseases of the circulatory system; Z90.49 Acquired absence of other specified parts of digestive tract
CPT/HCPCS: 71045; 81001; 82962; 87635; 94640; 99284; C9803; U0003

== ENCOUNTER → 2020-08-11 12:35 | Outpatient (CLI) | payer OTHER, SELFPAY ==
[2020-08-11 14:27] LABS: Microalbumin:Creatinine Ratio 114.6 mg/g CRE (<30 mg/g CRE)
== END ==
PROVIDERS: PCP Family Medicine; Referring Provider Family Medicine; Visit Provider Family Medicine
DX: R80.9 Proteinuria, unspecified (principal)
CPT/HCPCS: 82043; 82570

== ENCOUNTER → 2020-08-17 15:46 | Outpatient (CLI) | payer OTHER, SELFPAY ==
--- NOTE | 2020-08-17 15:49 | VDLE_ITS ---
Reason For Study: pain RIGHT GSV is normal. FV is compressible, spontaneous, phasic, competent and demonstrates normal augmentation. POP V is compressible, spontaneous, phasic, competent and demonstrates normal augmentation. T/P Trunk is compressible. PTV is compressible. RT PerV is compressible. Procedure This is a venous duplex using B-mode, color flow and spectral Doppler. Exam performed in department. The exam was abbreviated due to the COVID 19 protocol. The exam was of fair technical quality due to pt body habitus. Unable to image CFV due to pt body habitus. A preliminary report was called and/or faxed to Dr. Leon. Interpretation Summary There is no evidence of right lower extremity deep vein thrombosis. Right great saphenous vein appears patent and compressible segmentally. COVID-19 protocol utilized Exam was felt to be of fair quality secondary to patient body habitus Ordering Physician: Zeferino Leon Performed By: Marbin Sweeney RVT
== END ==
PROVIDERS: PCP Family Medicine; Referring Provider Family Medicine; Visit Provider Family Medicine
DX: M79.661 Pain in right lower leg (principal)
CPT/HCPCS: 93971

== ENCOUNTER → 2020-08-31 06:34 | Outpatient (CLI) | payer OTHER, SELFPAY ==
[2020-08-23 09:56] VITALS: BMI 43.7
[2020-08-31 08:02] LABS: AST(SGOT) 24 U/L (15-37); Alanine Aminotransfer ALT/SGPT 48 U/L (13-56); Albumin, Serum 3.8 g/dL (3.2-5.0); Alkaline Phosphatase 80 U/L (45-117); Anion Gap 6 (5-15); BUN 12 mg/dL (7-18); BUN/Creat Ratio 17.9 RATIO (10-20); Calcium,Total 9.5 mg/dL (8.5-10.1); Chloride 109 mmol/L (98-107); Creatinine, Serum 0.67 mg/dL (0.55-1.02); EST Glomerular Filtration Rate 105 mL/min (>60); Est Glom Filt Rate - Afr Amer 127 mL/min (>60); Glucose 73 mg/dL (74-106); Potassium 3.8 mmol/L (3.5-5.1); Protein, Total 7.8 g/dL (6.4-8.2); Sodium Level 140 mmol/L (136-145)
[2020-08-31 08:45] LABS: Hemoglobin A1c 6.2 % (3.8-5.6)
== END ==
PROVIDERS: PCP Family Medicine; Referring Provider Family Medicine; Visit Provider Family Medicine
DX: E11.29 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 kidney complication (principal); K76.0 Fatty (change of) liver, not elsewhere classified
CPT/HCPCS: 36415; 80053; 83036

== ENCOUNTER → 2020-09-15 09:51 | Outpatient (CLI) | payer OTHER, SELFPAY ==
[2020-08-23 09:56] VITALS: BMI 43.7
[2020-09-05 16:18] VITALS: BMI 45.1
--- NOTE | 2020-09-15 17:44 | PFTCOMP ---
COMPLETE PULMONARY FUNCTION TEST INTERPRETATION Brief HPI: Patient is a 40 year old female, currently under the care of myself, who presents to [facility] for complete pulmonary function tests secondary to diagnosis of dyspnea. Respiratory therapist reports good effort and reproducible results. Interpretation: Forced expiration spirometry shows no large airways obstructive ventilatory defect with an FEV1 of 83% predicted. There is no significant bronchodilator response by strict ATS criteria. Spirograms are of good quality and plateau normally. The respiratory flow volume loop shows a normal pattern. Lung volumes by body plethysmography show a decreased total lung capacity at 4.79 L, 84% predicted. All other lung volumes are reduced symmetrically. Diffusion capacity by carbon monoxide is normal at 81% predicted. The airway resistance is slightly elevated. No previous pulmonary function tests were available for review. Impression: Mild restrictive ventilatory defect with preserved diffusion capacity
== END ==
PROVIDERS: PCP Family Medicine; Referring Provider Internal Medicine Critical Care Medicine; Visit Provider Internal Medicine Critical Care Medicine
DX: R06.00 Dyspnea, unspecified (principal)
CPT/HCPCS: 94060; 94726; 94729

== ENCOUNTER → 2020-10-20 15:42 | Outpatient (CLI) | payer OTHER, SELFPAY ==
--- NOTE | 2020-10-20 15:44 | US_ITS ---
STUDY: ULTRASOUND OF THE FEMALE PELVIS - COMPLETE REASON FOR EXAM: Female, 40 years old. HEAVY MENSES LMP: TECHNIQUE: Transabdominal and Transvaginal TECHNICAL QUALITY: Adequate. COMPARISON: CT scan 08/28/2019. FINDINGS: The uterus is anteverted and is in a midline position. The uterus measures 9.8 x 5.5 x 4.2 cm. There is a Nabothian cyst of the cervix. The endometrium measures 9 mm in thickness, and is hyperechoic. There is no demonstrated endometrial mass. There is no demonstrated myometrial mass. I.U.D. - The patient does not have an I.U.D. The right ovary is visualized. The right ovary measures 3.2 x 4.0 x 2.3 cm. There is a 2 cm cyst. There is no visualized right adnexal mass or complex lesion. There is normal arterial and normal venous vascularity. The left ovary is visualized. The left ovary measures 5.5 x 4.7 x 4.6 cm. There is a 4.1 cm complex cystic and solid mass. This likely a hemorrhagic cyst. Recommend follow-up in one or 2 menstrual periods. There is normal arterial and normal venous vascularity. There is no fluid in the cul-de-sac. The pre void volume of the bladder was 335 ml. US/Pelvic (Non ) IMPRESSION: 2 cm right ovarian cyst. 4.1 cm probable hemorrhagic cyst on the left. Recommend follow-up in one to menstrual periods. Electronically Signed: Gregorio Last MD at 23:22 EST , Service support ,
--- NOTE | 2020-10-20 15:45 | US_ITS ---
STUDY: ULTRASOUND OF THE FEMALE PELVIS - COMPLETE REASON FOR EXAM: Female, 40 years old. HEAVY MENSES LMP: TECHNIQUE: Transabdominal and Transvaginal TECHNICAL QUALITY: Adequate. COMPARISON: CT scan 08/28/2019. FINDINGS: The uterus is anteverted and is in a midline position. The uterus measures 9.8 x 5.5 x 4.2 cm. There is a Nabothian cyst of the cervix. The endometrium measures 9 mm in thickness, and is hyperechoic. There is no demonstrated endometrial mass. There is no demonstrated myometrial mass. I.U.D. - The patient does not have an I.U.D. The right ovary is visualized. The right ovary measures 3.2 x 4.0 x 2.3 cm. There is a 2 cm cyst. There is no visualized right adnexal mass or complex lesion. There is normal arterial and normal venous vascularity. The left ovary is visualized. The left ovary measures 5.5 x 4.7 x 4.6 cm. There is a 4.1 cm complex cystic and solid mass. This likely a hemorrhagic cyst. Recommend follow-up in one or 2 menstrual periods. There is normal arterial and normal venous vascularity. There is no fluid in the cul-de-sac. The pre void volume of the bladder was 335 ml. US/Transvaginal Non- IMPRESSION: 2 cm right ovarian cyst. 4.1 cm probable hemorrhagic cyst on the left. Recommend follow-up in one to menstrual periods. Electronically Signed: Gregorio Last MD at 23:22 EST , Service support ,
== END ==
PROVIDERS: PCP Family Medicine; Referring Provider Obstetrics & Gynecology; Visit Provider Obstetrics & Gynecology
DX: N92.6 Irregular menstruation, unspecified (principal)
CPT/HCPCS: 76830; 76856

== ENCOUNTER → 2021-01-12 06:23 | Outpatient (CLI) | payer OTHER, SELFPAY ==
[2020-08-23 09:56] VITALS: BMI 43.7
[2021-01-12 07:14] LABS: Absolute Lymphocyte Count 2.89 X10^3/uL (0.83-4.51); Absolute Neutrophil Count 5.3 X10^3/uL (2.0-7.7); Basophil# 0.06 X10^3/uL; Basophil% 0.7 % (0-1); Eosinophil# 0.19 X10^3/uL; Eosinophils% 2.1 % (0-5); Hematocrit 42.6 % (37-47); Hemoglobin 13.8 g/dL (12.0-15.0); Lymphocyte # 2.89 X10^3/ul (4.0); Lymphocyte % 32.2 % (19-41); Mean Corp Hgb Conc 32.4 g/dL (32-36); Mean Corpuscular Hgb 28.4 pg (27.0-32.0); Mean Corpuscular Volume 87.7 fL (81-99); Mean Platelet Vol. 9.5 fl (6.2-12.0); Monocyte# 0.47 X10^3/uL; Monocyte% 5.2 % (0-10); NRBC Flagged by Analyzer 0 % (0-5); Neutrophil # 5.27 X10^3/uL (2.7-7.7); Neutrophil % 58.8 % (47-70); Platelet Count 217 K/mm3 (150-450); Red Blood Count 4.86 M/mm3 (4.2-5.4)
[2021-01-12 08:00] LABS: AST(SGOT) 18 U/L (15-37); Alanine Aminotransfer ALT/SGPT 29 U/L (13-56); Albumin, Serum 3.9 g/dL (3.2-5.0); Alkaline Phosphatase 82 U/L (45-117); Anion Gap 7 (5-15); BUN 15 mg/dL (7-18); BUN/Creat Ratio 24.8 RATIO (10-20); Calcium,Total 8.6 mg/dL (8.5-10.1); Chloride 106 mmol/L (98-107); Cholesterol 179 mg/dL (200); EST Glomerular Filtration Rate 118 mL/min (>60); Est Glom Filt Rate - Afr Amer 142 mL/min (>60); Glucose 97 mg/dL (74-106); Hemoglobin A1c 5.1 % (3.8-5.6); High Density Lipoprotein 37 mg/dL; Potassium 3.8 mmol/L (3.5-5.1); Protein, Total 7.9 g/dL (6.4-8.2); Sodium Level 138 mmol/L (136-145); Triglycerides 196 mg/dL; Very Low Density Lipoprotein 39 mg/dL (5-40)
== END ==
PROVIDERS: PCP Family Medicine; Referring Provider Family Medicine; Visit Provider Family Medicine
DX: E11.29 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 kidney complication (principal); R80.9 Proteinuria, unspecified; Z79.4 Long term (current) use of insulin
CPT/HCPCS: 36415; 80053; 80061; 83036; 85025

== ENCOUNTER → 2021-03-28 06:47 | Outpatient (CLI) | payer OTHER, SELFPAY ==
[2021-03-16 11:08] VITALS: BMI 40.8
[2021-03-28 07:37] LABS: Hemoglobin 12.9 g/dL (12.0-15.0); Mean Corp Hgb Conc 33.1 g/dL (32-36); Mean Corpuscular Hgb 29.5 pg (27.0-32.0); Mean Platelet Vol. 9.5 fl (6.2-12.0); Platelet Count 235 K/mm3 (150-450); RBC Distribution Width CV 14.6 % (11.6-14.6); RBC Distribution Width SD 47.9 fl (35.1-43.9); Red Blood Count 4.38 M/mm3 (4.2-5.4)
== END ==
PROVIDERS: PCP Family Medicine; Referring Provider Obstetrics & Gynecology; Visit Provider Obstetrics & Gynecology
DX: N93.9 Abnormal uterine and vaginal bleeding, unspecified (principal)
CPT/HCPCS: 36415; 84443; 85027

== ENCOUNTER 2021-05-03 15:55 | Emergency (ER) | payer OTHER, SELFPAY ==
[2021-05-02 11:06] VITALS: BMI 40.8
[2021-05-03 15:56] VITALS: BP 137/91; PULSE 79; RESP 14; TEMP 35.5; O2SAT 96; BMI 38.6
--- NOTE | 2021-05-03 16:29 | EDS_ITS ---
HPI History of Present Illness Chief Complaint: Back Narrative Narrative: Chief complaints is back pain. Patient is complaining of left shoulder pain. She tells me she slept on it wrong about 5 days ago and has been hurting ever since. 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 She carries to try and everything in her left arm. She has no chest pain or shortness of breath. She denies any neck pain. [facility] Medical History Acute cholecystitis Anxiety History of stent into kidney Type 2 diabetes mellitus with microalbuminuria Type 2 diabetes mellitus without complication, with long-term current use of insulin Home Medications albuterol sulfate 1 - 2 puff INHALATION Q6H PRN PRN 10/27/15 [History Last Taken Unknown] tizanidine 4 mg PO DAILY PRN PRN 04/29/17 [History Last Taken 07/19/18] lisinopril 5 mg PO DAILY 02/14/19 [History Last Taken 09/23/19] blood sugar diagnostic #10 ea 04/26/20 [History Last Taken Unknown] dulaglutide 1.5 mg/0.5 mL subcutaneous pen injector 1.5 mg SC QWEEK 04/26/20 [History Last Taken Unknown] levonorgestrel 14 mcg/24 hrs (3 yrs) 13.5 mg intrauterine device 1 device INTRAUTERINE ONCE 04/26/20 [History Last Taken Unknown] metronidazole 1 % topical gel 1 applic TOPICAL BID PRN g 04/26/20 [History Last Taken Unknown] montelukast 10 mg tablet 10 mg PO QHS 04/26/20 [History Last Taken Unknown] omeprazole magnesium 20 mg tablet,delayed release 20 mg PO DAILY 04/26/20 [History Last Taken Unknown] ondansetron HCl 4 mg tablet 4 mg PO Q6H PRN 04/26/20 [History Last Taken Unknown] clnzyalr-iqr-Zi-FA 1 mg capsule 1 cap PO DAILY cap 04/26/20 [History Last Taken Unknown] topiramate 50 mg tablet 50 mg PO BID #60 tab 06/16/20 [Rx Last Taken Unknown] promethazine 25 mg PO Q6H PRN PRN #10 tab 07/11/20 [Rx Last Taken Unknown] ipratropium bromide 21 mcg (0.03 %) nasal spray 2 spray INTRANASAL BID 08/23/20 [History Last Taken Unknown] omega-3 fatty acids 1,000 mg capsule 1,000 mg PO DAILY 02/21/21 [History Last Taken Unknown] propranolol 60 mg capsule,24 hr,extended release 60 mg PO DAILY 02/21/21 [History Last Taken Unknown] tranexamic acid 650 mg tablet 650 mg PO BID 02/21/21 [History Last Taken Unknown] Allergy/AdvReac Type Severity Reaction Status Date / Time lidocaine AdvReac Intermediate Hives Verified 05/03/21 15:56 STEROIDS Allergy Hives Uncoded 05/03/21 15:56 Family History Father Diabetes Myocardial infarction Pancreatic cancer Mother Alcohol abuse Drug abuse Grandfather Diabetes Grandmother Lung cancer Grandmother Heart disease Surgical History H/O: Hx laparoscopic cholecystectomy Social History Smoking Status: Never smoker alcohol intake: never substance use type: does not use caffeine: Yes what type of physical activity do you participate in: walking frequency: daily seatbelt use: always do you feel safe at home: Yes ROS ROS ED ROS Narrative Past medical history: Hypertension, hypercholesterolemia, fatty liver, migrai gerber, type 2 diabetes, hypertriglyceridemia, LETITIA Medications: Reviewed Social history: Job description as above Review of systems: Musculoskeletal: Left shoulder pain as in HPI Cardiovascular: No chest pain or pleuritic component. Neck: No neck pain Respiratory: No shortness of breath Skin: No abrasions or lacerations Neurological: No weakness or paresthesias Hematologic: No easy bleeding or easy bruising EXAM Physical Exam Narrative Exam Narrative: Physical exam General: Patient does not appear in significant distress . Head: Normocephalic, Atraumatic Neck: No C-spine tenderness Cardiovascular: Normal distal pulses Back: Some tenderness over the posterior shoulder region. Extremities: Shoulder has some pain with movement but no significant pain with abduction. Overall the joint moves quite well. Most of the pain is over the deltoid region. Skin: No abrasions, no lacerations Neurological: Normal strength and sensation Const Vital Signs: 05/03/21 15:56 Temperature 95.9 F L Temperature Source Temporal Pulse Rate 79 Respiratory Rate 14 Blood Pressure 137/91 H Blood Pressure Mean 106 Pulse Ox 96 Oxygen Delivery Method Room Air MDM MDM MDM Narrative Medical decision making narrative: Patient has a normal chest x-ray. Patient appears well. I will discharge in stable condition. She probably needs physical therapy. Discharge Plan Triage Chief Complaint: Back ED Provider: Angel Mae Dx/Rx/DC Orders Prescriptions: No Action Trulicity 1.5 mg/0.5 mL pen injector 1.5 mg SC QWEEK RF: 0 montelukast [Singulair] 10 mg tablet 10 mg PO QHS RF: 0 metronidazole [Metrogel] 1 % gel 1 applic TOPICAL BID PRN (Reason: Not Specified) RF: 0 omeprazole magnesium [Prilosec OTC] 20 mg tablet,delayed release (DR/EC) 20 mg PO DAILY RF: 0 ondansetron HCl [Zofran] 4 mg tablet 4 mg PO Q6H PRN (Reason: nausea and vomiting) RF: 0 jrqsanxs-fqv-Xm-FA 1 mg capsule 1 mg capsule 1 cap PO DAILY RF: 0 Bela 14 mcg/24 hrs (3 yrs) 13.5 mg intrauterine device 1 device intrauterine ONCE RF: 0 (DME) blood sugar diagnostic [Blood Glucose Test] Strip See Rx Instructions .ROUTE .MEDSUPPLY Qty: 10 RF: 0 topiramate 50 mg tablet 50 mg PO BID Qty: 60 RF: 6 ipratropium bromide 0.03 % spray,non-aerosol 2 spray INTRANASAL BID RF: 0 tranexamic acid 650 mg tablet 650 mg PO BID RF: 0 propranolol 60 mg capsule,extended release 24 hr 60 mg PO DAILY RF: 0 omega-3 fatty acids [Fish Oil Concentrate] 1,000 mg capsule 1,000 mg PO DAILY RF: 0 albuterol sulfate 1 INHALER inhaler 1 - 2 puff INHALATION Q6H PRN PRN (Reason: Sob &/Or Wheezing) RF: 0 tizanidine 4 MG tablet 4 mg PO DAILY PRN PRN (Reason: Muscle Spasm) RF: 0 lisinopril 5 MG tablet 5 mg PO DAILY RF: 0 promethazine 25 MG tablet 25 mg PO Q6H PRN PRN (Reason: Nausea) Qty: 10 RF: 0 Primary Care Provider: Zeferino Leon
--- NOTE | 2021-05-03 16:40 | RAD_ITS ---
STUDY: X-RAY - LEFT SHOULDER REASON FOR EXAM: Female, 40 years old. ft shoulder pain, pt thinks she slept on her shoulder wrong and that is what is causing the pain. TECHNIQUE: 4 view(s) of the shoulder. COMPARISON: None. FINDINGS: Normal glenohumeral articulation. Normal acromioclavicular joint. Normal acromion. Normal humeral head and visualized proximal humerus. The soft tissue structures are unremarkable. There is no demonstrated fracture. Normal visualized pulmonary apex. RAD/Shoulder min 2 Views IMPRESSION: Normal x-ray examination of the shoulder. Electronically Signed: Wes Fowler MD at 17:27 EDT , Service support ,
== END 2021-05-03 17:06 | disposition home or self-care (01) ==
PROVIDERS: Emergency Provider Emergency Medicine; PCP Family Medicine
DX: M25.512 Pain in left shoulder (principal); E11.9 Type 2 diabetes mellitus without complications; E78.00 Pure hypercholesterolemia, unspecified; E78.1 Pure hyperglyceridemia; F41.9 Anxiety disorder, unspecified; G47.33 Obstructive sleep apnea (adult) (pediatric); I10 Essential (primary) hypertension; K76.0 Fatty (change of) liver, not elsewhere classified; Z79.3 Long term (current) use of hormonal contraceptives; Z79.4 Long term (current) use of insulin
CPT/HCPCS: 73030; 99282

== ENCOUNTER → 2021-05-23 09:05 | Outpatient (CLI) | payer OTHER, SELFPAY ==
[2021-05-16 16:01] VITALS: BMI 38.6
--- NOTE | 2021-05-23 09:10 | RAD_ITS ---
STUDY: X-RAY - CERVICAL SPINE REASON FOR EXAM: Female, 40 years old. RADICULOPATHY OF ARM . Left-sided neck and shoulder pain. TECHNIQUE: 5 view(s) of the cervical spine were obtained including oblique views. COMPARISON: None FINDINGS: Normal anterior atlantoaxial articulation. Normal odontoid process. There is straightening of the normal cervical lordosis. Mild degree of the anterior spondylosis at the C5-C6 level. Normal disc space heights. Normal visualized intervertebral neuroforamina. The soft tissue structures are unremarkable. RAD/Cerv Spine 4 or 5 Views IMPRESSION: Mild degree of spondylosis at the C5-C6 level. Electronically Signed: Emiliano Gonzalez MD at 21:27 EDT , Service support ,
== END ==
PROVIDERS: PCP Family Medicine; Referring Provider Family Medicine; Visit Provider Family Medicine
DX: M54.10 Radiculopathy, site unspecified (principal)
CPT/HCPCS: 72050

== ENCOUNTER → 2021-06-21 17:50 | Outpatient (CLI) | payer OTHER, SELFPAY ==
[2021-06-21 17:51] LABS: Bacteria 0 SEEN /hpf (None Seen); Mucous, Urine 0 SEEN /hpf (<or=2+)
[2021-06-21 17:56] LABS: Color, Urine Yellow (Yellow); Glucose, Dipstick Normal (Normal); Ketone-Dipstick Negative (Negative); Leukocyte Esterase-Dipstick 25 /ul (Negative); Nitrite-Dipstick Negative (Negative); Occult Blood-Urine 250 /ul (Negative); Protein-Dipstick 100 mg/dl (Negative); Urine Bilirubin Dipstick Negative (Negative); Urine Clarity Clear (Clear); Urine Urobilinogen Normal (Normal)
[2021-06-21 18:03] LABS: Red Blood Cells-Urine 5-10 SEEN /hpf (0-5); White Blood Cells 0-5 SEEN /hpf (0-5)
[2021-06-21 18:04] LABS: Squamous Epithelial Cells - UA 0-5 SEEN /hpf (5-10)
== END ==
PROVIDERS: PCP Family Medicine; Visit Provider Physician Assistant
DX: N39.0 Urinary tract infection, site not specified (principal)
CPT/HCPCS: 81001; 87086; 87088

== ENCOUNTER 2021-07-21 16:30 | Outpatient (RCR) | payer OTHER, SELFPAY ==
[2021-05-11 17:00] VITALS: BMI 38.6
--- NOTE | 2021-05-16 11:12 | HP.PTEVAL_ITS ---
Patient's Visit Information TORI GARCIA is a 40 year old F referred to Physical Therapy by Dr. Zeferino Leon MD with a diagnosis of Shoulder Pain. Date of Evaluation: 05/16/21 Physical Therapist: Bernarda Khan DPT - Visit Plan Frequency: 3x /Week Duration: 4 Weeks Plan: Manual and Ultrasound to cervical spine- then can add in scapular s/s. HEP Given IE: Upper Trap, Levator, Postural correction, Wall Wash Flexion, CT Junction Stretch - Subjective Patient reports a few weeks ago she woke up in the middle of the night her right arm was straight out and locked in place- had to use her left arm to pull it back in- ever since then her left shoulder has been so sore. She feels its getting worse. Went to the ER- did an x-ray of her shoulder which was negative. He suggested PT- she talked to the therapists at the hospital who gave her some exercises which were not helping. Sees Dr. Leon tomorrow- plans to work with MD on her job situation and taking off work. ER MD suggested taking time off work- she doesn't really want to stop working. 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 Goes to Dr. Rehman- she tried steroid injections in her lumbar spine but is allergic to it. Pain is located in her scapula and sends shooting pains down the arm. Yesterday her whole left side went numb at the same time when she was standing in the elevator- plans to speak to Dr. Leon about this tomorrow. Takes muscle relaxers and thats not even helping. Right hand dominate. Worst: 08/13 almost went to ED last night Agg: anything she does. Eases: ice Best: 01/11. Sleep: wakes her up in the middle of the night- side sleeper- wears a BiPap so she sleeps on her left side. She reports numbness and tingling in her arm all the way down to all of her fingers. No issues with her neck. No blurred vision, dizziness and has chronic migraines. Goes to see Dr. Rehman today- saw her the other day- adjusted lower back and left shoulder. PMHx: DM, , gallbladder out Meds: lisinopril, trulicity, topoma, micky, xanoflex - Objective Posture: FH, R- can correct with verbal and tactile cues but is unable to maintain. Gait: decreased arm swing and trunk rotation. Palpation: significantly tender throughout scapular border, upper trap to the occiput and down to the AC Joint, infraspinatus and thoracic spine. Sensation: hyper sensitive to left upper extremity to light touch. ROM: Cervical: flexion: WFL, Extn: diminished by 75% with pain, SB: decreased by 75% with pain, Rot: decreased by 75% with pain. Shoulder: WFL with significant pain throughout. Elbow/Wrist/Hand: WFL. Strength: Scap: poor, Cervical spine: 4-/5, Shoulder: 4/5 with pain, Elbow: 5/5, Wrist: 5/5 Loss Prevention Specialist: equal. Special Test: Spurling:positive, Distraction: decreased s/s, Manual STM and contract/relax decreased s/s and improved ROM - Goals Goal 1:: Patient will be I with HEP and progression Goal Time Frame: 4-6 Weeks Goal 2:: Patient will demo full AROM of the cervical spine and shoulder Goal Time Frame: 4-6 Weeks Goal 3:: Patient will report no pain down the left arm Goal Time Frame: 4-6 Weeks - Rehabilitation Potential Physical Therapy Diagnosis: Patient presents with hypmobility- she has decreased pain free cervical and left shoulder ROM, core and scapular strength/stabilization and muscular endurance leading to poor posture and increased pain with ADL's. Rehabilitation Potential: Fair - Anticipated Interventions Patient/Client Instruction: Educate patient on: Benefits of Fitness Program Therapeutic Exercise to Include: Strength training, Endurance training, Coordination, Body mechanics, Postural training, Flexibilty training, Neuromotor development, Passive ROM, Active ROM, Dynamic Lumbar Stabilization, Scapular S trength/Stabilization For the Purpose of:: To improve muscle performance and motor function TENS: Yes Cryotherapy (ice pack, ice massage): Yes Thermo therapy (hot pack): Yes Ultrasound (thermal/non thermal): Yes Thank you for the opportunity to evaluate your patient. For Medicare and Medicare HMO plans, please review the plan of care and approve it. It will need to be FAXED BACK to us at [phone] for Medicare purposes. For Medicare only, by signing this I certify the plan of care. Please let me know if there are questions or concerns regarding this plan of care. Physician Signature: Date:
--- NOTE | 2021-06-27 07:46 | HP.PTREVAL ---
Dr. Zeferino Leon MD, It has been my pleasure to treat TORI GARCIA over the last 14 visits for Shoulder Pain. Please see the progress note below for an update on the physical therapy plan of care! Subjective: Pt. reports still having some tingling down her arm at times along with some pain. She has started taking gabapentin which has been helping with her N/T. 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 She still feels some pulling in her L shoulder, posterior aspect, Tightness. the knot that I had is gone. It still don't think I could carry trays at work ([employer]). She reports being 80%. Objective/Function: L shoulder ROM: flexion 160deg, abd 170deg. Cervical ROM: flexion nil loss NE, ext mod loss increase NW, SB to left min loss increase NE, rotation L min/mod loss increase NW L side. MMT: Pt. has 4+/5 strength throughout LUE, except flexion 4/5, abd 4/5. Pt. has reporting increased tingling through her whole arm intermittently with re assessment today. Overall she reports doing better, but is still having tingling in her arm. I was not able to change her symptoms with cervical movement, but was able to increase with applying increased tension to scalenes and with pec minor. I would like her to continue with PT with working on stretching this out a bit and working on postural strengthening to reduce N/T down her L arm. Plan Plan: Cont to progress scap and postural s/s. Add in UT, scalenes and pec minor stretching to HEP. Assess changes in N/T in L UE next visit. Balance/Gait/Functional tests - Balance/Special Test Scores Quick DASH Score: 25.0000 Goals Goal 1:: Patient will be I with HEP and progression Goal Time Frame: 4-6 Weeks Goal Progress: Progressing Goal 2:: Patient will demo full AROM of the cervical spine and shoulder Goal Time Frame: 4-6 Weeks Goal Progress: Progressing Goal 3:: Patient will report no pain down the left arm Goal Time Frame: 4-6 Weeks Goal Progress: Progressing Goal 4:: LTG: Pt. to have no N/T radiating down her LUE. Goal Time Frame: 4-6 Weeks Anticipated Interventions Patient/Client Instruction: Educate patient on: Benefits of Fitness Program Therapeutic Exercise to Include: Strength training, Endurance training, Coordination, Body mechanics, Postural training, Flexibilty training, Neuromotor development, Passive ROM, Active ROM, Dynamic Lumbar Stabilization, Scapular Strength/Stabilization For the Purpose of:: To improve muscle performance and motor function TENS: Yes Cryotherapy (ice pack, ice massage): Yes Thermo therapy (hot pack): Yes Ultrasound (thermal/non thermal): Yes Please do not hesitate to contact me at [phone] by phone or if you have questions or concerns regarding this new plan of care! Sincerely, PATRICIA DriverT
--- NOTE | 2021-07-24 09:46 | HP.PTDCSUM_ITS ---
It has been my pleasure to treat TORI GARCIA referred by Dr. Zeferino Leon MD, with the diagnosis of Shoulder Pain for a total of 19 visit(s). Discharge Date: 07/21/21 Please see the following information for a summary of their discharge status. Subjective: Pt. reports overall not much change in the N/T in her L arm and shoulder. She reports the pain in minimal, but is having freequent N/T. Pt. is working more. She reports having symptoms randomly, not just with over head motions. L c-spine Pain Intensity (Out of 10): 0 % Improvement: 60 Objective/Function: Pt. has decent ROM throughout L shoulder, strength is 4+/5 throughout generally without increase in symptoms. [employer] strength is symmetrical. It was hard to determine symptoms with special testing, nothing increased or decreased her symptoms. Both with testing of cervical ROM and with L shoulder ROM. The only thing that did cause an increase in symptoms was with cervical extension. pt. reports symptoms extend from shoulder to fingers. She reports to have an EMG, which I think is appropriate at this point in time. Goal 1:: Patient will be I with HEP and progression Goal Progress: Goal Met Goal 2:: Patient will demo full AROM of the cervical spine and shoulder Goal Progress: Progressing Goal 3:: Patient will report no pain down the left arm Goal Progress: Goal Met Goal 4:: LTG: Pt. to have no N/T radiating down her LUE. Goal Progress: Not Progressing Plan: DC to be DC from PT at this point in time back to physician for further testing due to limited progress with N/T of LUE. Discharge Comments: Pt. was treated for her L UE pain and subsequent N/T. Pt. did have some relief with her L shoulder pain with postural control and LUE strengthening. She however did not have much change with her more recent N/T in the same arm. I would suggest going back to physician at this point in time for further testing. If there are questions or concerns regarding this patient's physical therapy, please feel free to call me at [phone]. Thank you for the referral of this patient. Sincerely, Santana Bianchi Sipos, DPT Balance/Gait/Functional tests - Balance/Special Test Scores Quick DASH Score: 18.1800
== END 2021-07-21 19:00 | disposition home or self-care (01) ==
LOC: PT 16:30
PROVIDERS: PCP Family Medicine; Referring Provider Family Medicine; Visit Provider Family Medicine
DX: M25.512 Pain in left shoulder (principal)
CPT/HCPCS: 97035; 97110; 97140; 97162; 97164; 97530

== ENCOUNTER → 2021-07-25 09:13 | Outpatient (CLI) | payer OTHER, SELFPAY ==
--- NOTE | 2021-07-25 09:24 | RAD_ITS ---
STUDY: X-RAY CHEST REASON FOR EXAM: Female, 41 years old. Arm numbness, chest pain TECHNIQUE: PA and lateral views of the chest. COMPARISON: 07/11/2000 FINDINGS: The lungs are clear and expanded. There is no demonstrated pleural abnormality. Normal size heart. Normal mediastinum and osman. Normal visualized pulmonary arteries. Normal visualized aortic arch and descending thoracic aorta. Normal visualized thoracic spine. Normal visualized ribs, clavicles, and shoulders. There is no demonstrated abnormality of the visualized soft tissue structures of the upper abdomen. RAD/Chest PA and Lateral IMPRESSION: Normal x-ray examination of the chest. Electronically Signed: Alf Johnson MD at 17:12 EDT , Service support ,
[2021-07-25 10:57] LABS: Microalbumin,Random Urine 37.7 mg/L (NO RANGE EST.)
[2021-07-25 11:26] LABS: Hemoglobin A1c 4.8 % (3.8-5.6)
== END ==
PROVIDERS: PCP Family Medicine; Referring Provider Family Medicine; Visit Provider Family Medicine
DX: M79.602 Pain in left arm (principal); R20.0 Anesthesia of skin; E11.29 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 kidney complication; R80.9 Proteinuria, unspecified; Z79.4 Long term (current) use of insulin
CPT/HCPCS: 36415; 71046; 82043; 82570; 83036

== ENCOUNTER → 2021-08-23 15:34 | Outpatient (CLI) | payer OTHER, SELFPAY ==
--- NOTE | 2021-08-23 15:34 | MRI_ITS ---
STUDY: MRI CERVICAL SPINE WITHOUT CONTRAST REASON FOR EXAM: Female, 41 years old. NECK PAIN, LEFT SHOULDER PAIN TECHNIQUE: Standardized fat and water weighted pulse sequences were obtained in the sagittal and axial planes. COMPARISON: None FINDINGS: Normal foramen magnum and brainstem-cervical cord junction. Normal craniovertebral junction. Normal anterior atlantoaxial articulation. Normal odontoid process. Normal cervical lordosis. Normal vertebral bodies and posterior osseous elements. C2-3: Normal endplates. Mild disc desiccation. Normal disc height and morphology. Normal central canal and intervertebral neural foramina. C3-4: Normal endplates. Mild disc desiccation. Normal disc height and morphology. Normal central canal and intervertebral neural foramina. C4-5: Normal endplates. Mild disc desiccation. Normal disc height and morphology. Normal central canal and intervertebral neural foramina. C5-6: Normal endplates. Mild disc bulge. Normal central canal and intervertebral neural foramina. C6-7: Normal endplates. Mild disc bulge. Normal central canal and intervertebral neural foramina. C7-T1: Normal endplates. Normal disc height, signal and morphology. Normal central canal and intervertebral neural foramina. Normal cervical cord. Normal visualized soft tissue structures. MRI/Spine Cervical (Routine) IMPRESSION: Mild degenerative disc disease. No spinal canal or neural foraminal stenosis. Electronically Signed: Angel Bauer MD at 6:40 EDT Tel , Service support ,
== END ==
PROVIDERS: PCP Family Medicine; Referring Provider Orthopaedic Surgery; Visit Provider Orthopaedic Surgery
DX: M54.12 Radiculopathy, cervical region (principal)
CPT/HCPCS: 72141

== ENCOUNTER 2021-08-31 09:15 | Outpatient (RCR) | payer OTHER, SELFPAY ==
[2021-06-06 16:05] VITALS: BMI 38.6
--- NOTE | 2021-10-16 17:16 | MASS.DISCH ---
Massage Therapy Discharge Summary: Initial Evaluation Date: 06/13/21 Diagnosis: Shoulder Pain No. of Visits: 3 Date of last visit: 08/31/21 This patient is being discharged from our care at the [facility]. Thank you, Bell Yoon LMT
== END 2021-08-31 19:00 | disposition home or self-care (01) ==
LOC: MASS 09:15
PROVIDERS: PCP Family Medicine; Visit Provider Family Medicine
DX: M25.519 Pain in unspecified shoulder (principal)
CPT/HCPCS: 97124

== ENCOUNTER → 2021-09-06 09:49 | Outpatient (CLI) | payer OTHER, SELFPAY ==
--- NOTE | 2021-09-06 11:38 | NEURO ---
NCS and/or EMG Patient Report Ordering Doctor: Buck Harris DATE OF SERVICE: 09/06/21 Saleem presents for electrodiagnostic testing of the left upper limb. She reports pain weakness and numbness in the left arm. Her pain is primarily in the left shoulder. Electrodiagnostic findings: Left median motor nerve demonstrates normal distal latency, amplitude and conduction velocity. Normal left ulnar motor response. Normal left ulnar and median F wave. Normal left median sensory latency at the palm and wrist. Normal left ulnar and radial sensory responses. On needle EMG, all muscles tested in the left upper limb showed no evidence of denervation with normal motor unit action potentials. Electrodiagnostic impression: This is a normal electrodiagnostic study of the left upper limb. There is no electrodiagnostic evidence for peripheral neuropathy including carpal tunnel or cubital tunnel syndrome. There is no electrodiagnostic evidence for brachial plexopathy. There is no electrodiagnostic evidence for cervical radiculopathy.
== END ==
PROVIDERS: PCP Family Medicine; Referring Provider Orthopaedic Surgery; Visit Provider Orthopaedic Surgery
DX: M54.12 Radiculopathy, cervical region (principal)
CPT/HCPCS: 95886; 95910

== ENCOUNTER → 2021-10-04 15:32 | Outpatient (CLI) | payer OTHER, SELFPAY ==
--- NOTE | 2021-10-04 15:33 | MRI_ITS ---
STUDY: MRI LEFT SHOULDER REASON FOR EXAM: Female, 41 years old. pain left scapula TECHNIQUE: Standardized fat and water weighted pulse sequences were obtained in all 3 orthogonal planes. COMPARISON: Left shoulder x-ray dated MAY 03, 2021 FINDINGS: Normal supraspinatus tendon. Normal infraspinatus tendon. Normal subscapularis tendon. Normal teres minor tendon. Normal supraspinatus muscle. Normal infraspinatus muscle. Normal subscapularis muscle. Normal teres minor muscle. Normal glenohumeral articulation. Normal humeral head and visualized proximal humerus. Normal biceps labral complex. Normal intracapsular long biceps tendon. The posterior inferior aspect of the glenoid labrum is mildly swollen with intrasubstance degenerative signal but without tearing. Normal remaining aspects of the glenoid labrum. Normal capsulo- ligamentous complex. Normal rotator interval. Normal acromioclavicular articulation. There is a Type II morphology (curved), with a neutral orientation. There is no subacromial-subdeltoid bursal fluid. No marrow edema or fracture is seen. A small glenohumeral joint effusion is present. Normal visualized coracohumeral and coracoacromial ligaments. Normal quadrilateral space. Normal axillary space. Normal deltoid muscle. Normal trapezius muscle. MRI/Upper Ext Joint Only(Routine) IMPRESSION: 1. The posterior inferior aspect of the glenoid labrum is mildly swollen with intrasubstance degenerative signal but without tearing. Normal remaining aspects of the glenoid labrum. 2. Small glenohumeral joint effusion. Electronically Signed: Wes Fowler MD at 17:00 EST , Service support ,
== END ==
PROVIDERS: PCP Family Medicine; Visit Provider Orthopaedic Surgery
DX: R20.0 Anesthesia of skin (principal); M89.8X1 Other specified disorders of bone, shoulder
CPT/HCPCS: 73221

== ENCOUNTER 2021-11-29 15:55 | Outpatient (CLI) | payer OTHER, SELFPAY ==
--- NOTE | 2021-11-29 15:56 | MRI_ITS ---
STUDY: MR Spine Lumbar W/O Contrast 11/29/2021 9:40 PM REASON FOR EXAM: Female, 41 years old. Back pain Low back pain -- left sided parasthesia TECHNIQUE: MR Spine Lumbar W/O Contrast Standardized fat and water weighted pulse sequences were obtained. COMPARISON: None FINDINGS: T12-L1: Normal endplates. Normal disc height, hydration and morphology. There is bilateral facet arthropathy. Normal central canal and bilateral lateral recesses. Normal bilateral intervertebral neural foramina. T11-12. Normal endplates. Normal disc height, hydration and morphology. There is bilateral facet arthropathy. Normal central canal and bilateral lateral recesses. Normal bilateral intervertebral neural foramina. Left paracentral disc herniation. This is partially visualized and there is compression upon the spinal cord. Normal lumbar lordosis. There is no substantial scoliosis. Normal conus medullaris that terminates at the L2 L1-2: Normal endplates. Normal disc height, hydration and morphology. There is bilateral facet arthropathy. Normal central canal and bilateral lateral recesses. Normal bilateral intervertebral neural foramina. L2-3: Normal endplates. Normal disc height, hydration and morphology. There is bilateral facet arthropathy. Normal central canal and bilateral lateral recesses. Normal bilateral intervertebral neural foramina. L3-4: Normal endplates. Normal disc height, hydration and morphology. There is bilateral facet arthropathy. Normal central canal and bilateral lateral recesses. Normal bilateral intervertebral neural foramina. L4-5: Loss of intervertebral disc height. There is endplate spondylosis of the vertebral body. Normal central canal and intervertebral neuroforamina. There is bilateral facet arthropathy. There is a posterior annular tear and herniation. No spinal stenosis. L5-S1: Normal endplates. Normal disc height, hydration and morphology. There is bilateral facet arthropathy. Normal central canal and bilateral lateral recesses. Normal bilateral intervertebral neural foramina. Normal visualized sacral ala. Normal visualized paraspinous soft tissue structures. MRI/Spine Lumbar (Routine) IMPRESSION: L4-5: There is a posterior annular tear and herniation. No spinal stenosis. T11-12. Left paracentral disc herniation. This is partially visualized and there is compression upon the spinal cord. Moderate spinal stenosis. Electronically Signed: Augustine Gerardo MD at 21:44 EST ,
== END 2021-11-29 23:59 | disposition short-term general hospital (02) ==
LOC: MRI 15:56
PROVIDERS: PCP Family Medicine; Visit Provider Chiropractor
DX: M51.37 Other intervertebral disc degeneration, lumbosacral region (principal); M51.26 Other intervertebral disc displacement, lumbar region; M51.24 Other intervertebral disc displacement, thoracic region; M48.04 Spinal stenosis, thoracic region; M99.03 Segmental and somatic dysfunction of lumbar region
CPT/HCPCS: 72148

== ENCOUNTER 2022-01-09 09:52 | Outpatient (CLI) | payer OTHER, SELFPAY ==
--- NOTE | 2022-01-09 09:56 | ART_ITS ---
Reason For Study: Arm numbness Procedure A bilateral upper extremity continuous wave Doppler with analog waveform analysis and segmental pressures. Thoracic outlet syndrome protocol performed. Left Segmental Pressures Left brachial= 144mmHg. Left radial= 148mmHg. Left ulnar= 151mmHg. Left digit = 121 mmHg. The left radial waveforms are triphasic. The left ulnar waveforms are triphasic. Right Segmental Pressures Right brachial= 135mmHg. Right radial= 161mmHg. Right ulnar= 157mmHg. Right digit = 133 mmHg. The right radial waveforms are triphasic. The right ulnar waveforms are triphasic. Indices Wrist-brachial index by the radial artery is 1.12. Wrist-brachial index by the ulnar artery is 1.09. The right digital-brachial index is 0.92. Wrist-brachial index by the radial artery is 1.03. Wrist- brachial index by the ulnar artery is 1.05. The left digital-brachial index is 0.84. VL/Upper Extremity Arterial Study Interpretation Summary Normal bilateral upper extremity resting radial and ulnar brachial indices of 1 .12 and 1.09 respectively on the right and 1.03 and 1.05 respectively on the left. Normal re sting triphasic Doppler waveforms bilaterally. Bilateral upper extremities are checked with the arms at 90 degrees and 180 deg hadley and position and position had right and position had left all wit h normal waveforms. Symptomatic position for the patient was with her arm stretched out in front of her body noting the left arm numb once raised above shoulder level but waveforms and amplitude alfredito ined normal. Ordering Physician: Sam Guadarrama Referring Physician: Zeferino Leon Performed By: Jaelyn Thao RVT
== END 2022-01-09 23:59 | disposition home or self-care (01) ==
LOC: CVS 09:53
PROVIDERS: PCP Family Medicine; Referring Provider Orthopaedic Surgery; Visit Provider Orthopaedic Surgery
DX: M25.512 Pain in left shoulder (principal); G89.29 Other chronic pain; R20.0 Anesthesia of skin
CPT/HCPCS: 93923

== ENCOUNTER 2022-02-07 07:51 | Outpatient (CLI) | payer OTHER, SELFPAY ==
[2022-02-07 08:14] LABS: Hematocrit 42.4 % (37-47); Hemoglobin 14.2 g/dL (12.0-15.0); Mean Corp Hgb Conc 33.5 g/dL (32-36); Mean Corpuscular Hgb 30.7 pg (27.0-32.0); Mean Corpuscular Volume 91.6 fL (81-99); Mean Platelet Vol. 9.5 fl (6.2-12.0); Platelet Count 223 K/mm3 (150-450); RBC Distribution Width CV 13.2 % (11.6-14.6); RBC Distribution Width SD 43.8 fl (35.1-43.9); Red Blood Count 4.63 M/mm3 (4.2-5.4); White Blood Count 9.6 K/mm3 (4.4-11.0)
[2022-02-07 08:28] LABS: Hemoglobin A1c 5.1 % (3.8-5.6)
[2022-02-07 08:31] LABS: AST(SGOT) 13 U/L (15-37); Alanine Aminotransfer ALT/SGPT 29 U/L (13-56); Albumin, Serum 4.1 g/dL (3.2-5.0); Alkaline Phosphatase 87 U/L (45-117); Anion Gap 4 (5-15); BUN 11 mg/dL (7-18); BUN/Creat Ratio 15.1 RATIO (10-20); Calcium,Total 8.8 mg/dL (8.5-10.1); Chloride 109 mmol/L (98-107); Cholesterol 178 mg/dL (200); Creatinine, Serum 0.73 mg/dL (0.55-1.02); EST Glomerular Filtration Rate 94 mL/min (>60); Est Glom Filt Rate - Afr Amer 114 mL/min (>60); Globulin 4.3 g/dL (2.2-4.2); Glucose 126 mg/dL (74-106); High Density Lipoprotein 37 mg/dL; Magnesium 1.7 mg/dL (1.6-2.6); Potassium 4.1 mmol/L (3.5-5.1); Protein, Total 8.4 g/dL (6.4-8.2); Sodium Level 136 mmol/L (136-145); Thyroid Stim Hormone (TSH) 2.76 uIU/mL (0.358-3.74); Triglycerides 183 mg/dL; Very Low Density Lipoprotein 37 mg/dL (5-40)
[2022-02-07 08:43] LABS: Microalbumin:Creatinine Ratio 153.4 mg/g CRE (<30 mg/g CRE)
== END 2022-02-07 23:59 | disposition home or self-care (01) ==
LOC: LAB.FUTURE 07:51
PROVIDERS: PCP Family Medicine; Referring Provider Family Medicine; Visit Provider Family Medicine
DX: R94.31 Abnormal electrocardiogram [ECG] [EKG] (principal); E11.29 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 kidney complication; Z79.4 Long term (current) use of insulin; R80.9 Proteinuria, unspecified
CPT/HCPCS: 36415; 80053; 80061; 82043; 82570; 83036; 83735; 84443; 85027

== ENCOUNTER 2022-02-27 09:53 | Emergency (ER) | payer OTHER, SELFPAY ==
[2022-02-27 09:54] VITALS: BP 190/94; PULSE 96; RESP 18; TEMP 36.6; O2SAT 99; BMI 41.5
--- NOTE | 2022-02-27 10:09 | CT_ITS ---
EXAM: CT ABDOMEN AND PELVIS WITHOUT INTRAVENOUS CONTRAST CLINICAL INDICATION: Pain TECHNIQUE: Helically acquired images were obtained of the abdomen and pelvis without intravenous contrast. This CT exam was performed using one or more of the following dose reduction techniques: automated exposure control, adjustment of the mA and/or kV according to patient size, and/or use of iterative reconstruction technique. This report was created using [employer] report generation technology. COMPARISON: August 28, 2019 FINDINGS: LOWER THORAX: Unremarkable. Lung bases are clear. No cardiomegaly. No significant pericardial effusion. ABDOMEN: LIVER: Stable enlarged liver. GALLBLADDER AND BILE DUCTS: Cholecystectomy clips are in place. No intra- or extrahepatic biliary ductal dilation. PANCREAS: Unremarkable. No focal cystic mass. SPLEEN: Stable splenomegaly. ADRENALS: Unremarkable. No nodules. KIDNEYS AND URETERS: New punctate stone noted within the upper pole right kidney. Persistent 4 mm stone within the lower pole left kidney. No hydronephrosis. STOMACH AND BOWEL: Unremarkable. No bowel distention. No focal inflammatory change. PELVIS: APPENDIX: Appendix is visualized and normal in appearance. BLADDER: Unremarkable. REPRODUCTIVE: IUD noted within the endometrial cavity. ABDOMEN and PELVIS: INTRAPERITONEAL SPACE: Unremarkable. No ascites or other fluid collection. No free air. BONES/JOINTS: Unremarkable. No suspicious lytic or blastic abnormality. SOFT TISSUES: Unremarkable. No discrete abdominal or pelvic wall hernia. VASCULATURE: Unremarkable. Abdominal aorta is non-dilated. LYMPH NODES: Unremarkable. No enlarged lymph nodes. CT/Abdomen/Pelvis without Cont IMPRESSION: 1. Stable hepatosplenomegaly. 2. Bilateral nephrolithiasis. Electronically Signed: Sumeet Zheng MD at 11:29 EDT ,
--- NOTE | 2022-02-27 10:09 | EX.ED.DYSGE1 ---
HPI History of Present Illness Chief Complaint: General Illness Narrative Narrative: Patient with past medical history of chronic thoracic and low back pain, sees a pain specialist, presents with low back pain radiating outward and upward. She states she has not felt right for approximately 1 week. She denies any fevers or chills. She has history of chronic migraines and states that her pain in her back has caused migraines which went away. She has been taking Excedrin with mild relief of her symptoms. She states that her pain continues and she has been able to see her primary care physician, so she presents to the emergency department with low back pain. She is unsure if she had a kidney stone problem. However she denies any dysuria or hematuria. No problems with bowel movements. No pain down her legs. She states that she just does not feel right, hurts all over and something feels off. [facility] Medical History Acute cholecystitis Anxiety Encounter for screening for COVID-19 History of stent into kidney Type 2 diabetes mellitus with microalbuminuria Type 2 diabetes mellitus without complication, with long-term current use of insulin URI (upper respiratory infection) Urinary tract infection with hematuria Home Medications albuterol sulfate 1 - 2 puff INHALATION Q6H PRN PRN 10/27/15 [History Last Taken Unknown] tizanidine 4 mg PO DAILY PRN PRN 04/29/17 [History Last Taken 07/19/18] lisinopril 5 mg PO DAILY 02/14/19 [History Last Taken 09/23/19] blood sugar diagnostic #10 ea 04/26/20 [History Last Taken Unknown] dulaglutide 1.5 mg/0.5 mL subcutaneous pen injector 1.5 mg SC QWEEK 04/26/20 [History Last Taken Unknown] levonorgestrel 14 mcg/24 hrs (3 yrs) 13.5 mg intrauterine device 1 device INTRAUTERINE ONCE 04/26/20 [History Last Taken Unknown] metronidazole 1 % topical gel 1 applic TOPICAL BID PRN g 04/26/20 [History Last Taken Unknown] montelukast 10 mg tablet 10 mg PO QHS 04/26/20 [History Last Taken Unknown] omeprazole magnesium 20 mg tablet,delayed release 20 mg PO DAILY 04/26/20 [History Last Taken Unknown] ondansetron HCl 4 mg tablet 4 mg PO Q6H PRN 04/26/20 [History Last Taken Unknown] opewodof-eeg-Kj-FA 1 mg capsule 1 cap PO DAILY cap 04/26/20 [History Last Taken Unknown] topiramate 50 mg tablet 50 mg PO BID #60 tab 06/16/20 [Rx Last Taken Unknown] promethazine 25 mg PO Q6H PRN PRN #10 tab 07/11/20 [Rx Last Taken Unknown] ipratropium bromide 21 mcg (0.03 %) nasal spray 2 spray INTRANASAL BID 08/23/20 [History Last Taken Unknown] omega-3 fatty acids 1,000 mg capsule 1,000 mg PO DAILY 02/21/21 [History Last Taken Unknown] gabapentin 100 mg capsule 200 mg PO BID cap 01/01/22 [History Last Taken Unknown] Allergy/AdvReac Type Severity Reaction Status Date / Time lidocaine AdvReac Intermediate Hives Verified 02/27/22 09:57 STEROIDS Allergy Hives Uncoded 02/27/22 09:57 Family History Father Diabetes Myocardial infarction Pancreatic cancer Mother Alcohol abuse Drug abuse Grandfather Diabetes Grandmother Lung cancer Grandmother Heart disease Surgical History H/O: Hx laparoscopic cholecystectomy Social History Smoking Status: Never smoker alcohol intake: never substance use type: does not use caffeine: Yes what type of physical activity do you participate in: walking frequency: daily seatbelt use: always do you feel safe at home: Yes ROS ROS ED ROS Narrative Constitutional: No fever, no chills. HEENT: No sore throat. No neck pain. No loss of vision. No rhinorrhea. Cardiovascular: No chest pain. No palpitations. No pedal edema. Respiratory: No cough, no shortness of breath. Abdominal: No abdominal pain. No nausea. No vomiting. No problems with bowel movements, no diarrhea. Genitourinary: No dysuria. No hematuria. Musculoskeletal: Multiple myalgias. Positive low back pain. Neurologic: Positive migraine headaches. No dizziness. No lightheadedness. Skin: No rash. No change in color. Psychiatric: No depression. No anxiety. EXAM Physical Exam Narrative Exam Narrative: Afebrile. Vital signs noted. HEENT: Normocephalic. Atraumatic. PERRL, EOMI. Neck soft and supple. No point tenderness or step off. Cardiovascular: Regular rate and rhythm. No murmurs, rubs, or gallops appreciated. Respiratory: No tachypnea. Lungs clear to auscultation bilaterally. Gastrointestinal: Abdomen soft, nontender, with normoactive bowel sounds. No rebound or guarding. Neurological: Awake. Alert. Nonfocal, nonlateralizing. Neurovascular intact bilateral lower extremities. Skin: No rash. Normal color. No pallor. Musculoskeletal: No pedal edema. Full range of motion extremities. No vertebral point tenderness or bony step-off. Const Vital Signs: 02/27/22 09:54 02/27/22 10:00 Temperature 97.9 F Temperature Source Temporal Pulse Rate 96 Respiratory Rate 18 Respiratory Effort Normal Respiratory Pattern Normal Blood Pressure 190/94 H Blood Pressure Mean 126 Pulse Ox 99 Oxygen Delivery Method Room Air MDM MDM MDM Narrative Medical decision making narrative: Comprehensive work-up was pursued. She does have elevated blood pressure here. She has history of this. She will be administered hydralazine intravenously. She has normal CBC with normal white count, hemoglobin, and platelet count. Electrolyte panel is grossly unremarkable except for glucose of 102 with an AST of 12 with an ALT of 25. Normal anion gap of 5. Urinalysis shows no evidence of infection. CT of the abdomen and pelvis shows no acute process. She had been administered morphine and ondansetron. At this point in time, I feel she be discharged safely home with follow-up to her third pain management doctor. Return instructions were reviewed. Disposition is discharged home in stable condition. Lab Data Attestation: I reviewed the patient's lab results. Labs: Laboratory Results - last 24 hr 02/27/22 02/27/22 02/27/22 10:25 10:35 10:35 WBC 8.9 RBC 4.25 Hgb 13.5 Hct 38.3 MCV 90.1 MCH 31.8 MCHC 35.2 RDW Std Deviation 42.8 RDW Coeff of Itzel 13.2 Plt Count 166 MPV 9.2 Immature Gran % (Auto) 0.900 Neut % (Auto) 86.6 H Lymph % (Auto) 7.0 L [place] % (Auto) 4.3 Eos % (Auto) 0.9 Baso % (Auto) 0.3 Absolute Neuts (auto) 7.7 Absolute Lymphs (auto) 0.62 L Nucleated RBC % 0 Sodium 137 Potassium 3.5 Chloride 107 Carbon Dioxide 25.0 Anion Gap 5 BUN 16 Creatinine 0.70 Estim Creat Clear Calc 104.93 Est GFR (MDRD) Af Amer 119 Est GFR (MDRD) Non-Af 99 BUN/Creatinine Ratio 22.8 H Glucose 102 Calcium 8.9 Total Bilirubin 0.70 AST 12 L ALT 25 Alkaline Phosphatase 65 Total Protein 7.6 Albumin 3.9 Globulin 3.7 Albumin/Globulin Ratio 1.1 Urine Color Yellow Urine Clarity Clear Urine pH 6.0 Ur Specific [place] 1.010 Urine Protein Negative Urine Glucose (UA) Normal Urine Ketones Negative Urine Occult Blood Negative Urine Nitrite Negative Urine Bilirubin Negative Urine Urobilinogen Normal Ur Leukocyte Esterase Negative Urine RBC 0 SEEN Urine WBC 0 SEEN Ur Squamous Epith Cells 0 SEEN Urine Bacteria 0 SEEN Urine Mucus 0 SEEN Urine Test Negative Radiography Diagnostic Testing: Clinical Impression(s) from Imaging Studies Abdomen/Pelvis CT 02/27/22 10:09 IMPRESSION: 1. Stable hepatosplenomegaly. 2. Bilateral nephrolithiasis. Electronically Signed: Sumeet Zheng MD at 11:29 EDT , Discharge Plan Triage Chief Complaint: General Illness ED Provider: Markie Hughes Dx/Rx/DC Orders Clinical Impression: Chronic low back pain, Myalgia, Malaise, Elevated blood pressure reading in office with diagnosis of hypertension Instructions: ED Back Pain (Acute or Chronic), ED Hypertension, Established, ED Myalgias, ED Pain Management: Chronic Prescriptions: No Action Trulicity 1.5 mg/0.5 mL pen injector 1.5 mg SC QWEEK RF: 0 montelukast [Singulair] 10 mg tablet 10 mg PO QHS RF: 0 metronidazole [Metrogel] 1 % gel 1 applic TOPICAL BID PRN (Reason: Not Specified) RF: 0 omeprazole magnesium [Prilosec OTC] 20 mg tablet,delayed release (DR/EC) 20 mg PO DAILY RF: 0 ondansetron HCl [Zofran] 4 mg tablet 4 mg PO Q6H PRN (Reason: nausea and vomiting) RF: 0 [id number] 1 mg capsule 1 mg capsule 1 cap PO DAILY RF: 0 Bela 14 mcg/24 hrs (3 yrs) 13.5 mg intrauterine device 1 device intrauterine ONCE RF: 0 (DME) blood sugar diagnostic [Blood Glucose Test] Strip See Rx Instructions .ROUTE .MEDSUPPLY Qty: 10 RF: 0 topiramate 50 mg tablet 50 mg PO BID Qty: 60 RF: 6 ipratropium bromide 0.03 % spray,non-aerosol 2 spray INTRANASAL BID RF: 0 omega-3 fatty acids [Fish Oil Concentrate] 1,000 mg capsule 1,000 mg PO DAILY RF: 0 gabapentin 100 mg capsule 200 mg PO BID RF: 0 albuterol sulfate 1 INHALER inhaler 1 - 2 puff INHALATION Q6H PRN PRN (Reason: Sob &/Or Wheezing) RF: 0 tizanidine 4 MG tablet 4 mg PO DAILY PRN PRN (Reason: Muscle Spasm) RF: 0 lisinopril 5 MG tablet 5 mg PO DAILY RF: 0 promethazine 25 MG tablet 25 mg PO Q6H PRN PRN (Reason: Nausea) Qty: 10 RF: 0 Primary Care Provider: Zeferino Leon Referrals: Zeferino Leon MD [Primary Care Provider] - As soon as possible Disposition Disposition: Home, Self Care
[2022-02-27 10:31] LABS: Bacteria 0 SEEN /hpf (None Seen); Mucous, Urine 0 SEEN /hpf (<or=2+); Red Blood Cells-Urine 0 SEEN /hpf (0-5); Squamous Epithelial Cells - UA 0 SEEN /hpf (5-10); White Blood Cells 0 SEEN /hpf (0-5)
[2022-02-27 10:33] LABS: Color, Urine Yellow (Yellow); Glucose, Dipstick Normal (Normal); Ketone-Dipstick Negative (Negative); Leukocyte Esterase-Dipstick Negative /ul (Negative); Nitrite-Dipstick Negative (Negative); Occult Blood-Urine Negative /ul (Negative); Protein-Dipstick Negative (Negative); Urine Bilirubin Dipstick Negative (Negative); Urine Clarity Clear (Clear); Urine Urobilinogen Normal (Normal)
[2022-02-27 10:42] LABS: Internal QC Validated? YES +Cl - CLEAR BKGD; Pregnancy, Urine Negative Negative
[2022-02-27 10:50] LABS: Absolute Lymphocyte Count 0.62 X10^3/uL (0.83-4.51); Absolute Neutrophil Count 7.7 X10^3/uL (2.0-7.7); Basophil# 0.03 X10^3/uL; Basophil% 0.3 % (0-1); Eosinophil# 0.08 X10^3/uL; Eosinophils% 0.9 % (0-5); Hematocrit 38.3 % (37-47); Hemoglobin 13.5 g/dL (12.0-15.0); Lymphocyte # 0.62 X10^3/ul (0.83-4.51); Mean Corp Hgb Conc 35.2 g/dL (32-36); Mean Corpuscular Hgb 31.8 pg (27.0-32.0); Mean Corpuscular Volume 90.1 fL (81-99); Mean Platelet Vol. 9.2 fl (6.2-12.0); Monocyte# 0.38 X10^3/uL; Monocyte% 4.3 % (0-10); NRBC Flagged by Analyzer 0 % (0-5); Neutrophil # 7.73 X10^3/uL (2.7-7.7); Neutrophil % 86.6 % (47-70); Platelet Count 166 K/mm3 (150-450); RBC Distribution Width CV 13.2 % (11.6-14.6); RBC Distribution Width SD 42.8 fl (35.1-43.9); Red Blood Count 4.25 M/mm3 (4.2-5.4); White Blood Count 8.9 K/mm3 (4.4-11.0)
[2022-02-27] MEDS: Ondansetron 4 MG/2 ML Vial IV (10:51)
[2022-02-27] MEDS: Morphine 4 MG/ML Syringe IV (10:51)
[2022-02-27] MEDS: hydrALAZINE 20 MG/ML Vial 10 MG IV (10:51)
[2022-02-27] MEDS: 0.9% Normal Saline 1,000 ML 1000 ML IV (10:52)
[2022-02-27 11:20] LABS: ALB/GLOB Ratio 1.1 RATIO (0.9-2.4); AST(SGOT) 12 U/L (15-37); Alanine Aminotransfer ALT/SGPT 25 U/L (13-56); Albumin, Serum 3.9 g/dL (3.2-5.0); Alkaline Phosphatase 65 U/L (45-117); Anion Gap 5 (5-15); BUN 16 mg/dL (7-18); BUN/Creat Ratio 22.8 RATIO (10-20); Calcium,Total 8.9 mg/dL (8.5-10.1); Chloride 107 mmol/L (98-107); EST Glomerular Filtration Rate 99 mL/min (>60); Est Glom Filt Rate - Afr Amer 119 mL/min (>60); Estimated Creatinine Clearance 104.93 ml/min; Globulin 3.7 g/dL (2.2-4.2); Glucose 102 mg/dL (74-106); Potassium 3.5 mmol/L (3.5-5.1); Protein, Total 7.6 g/dL (6.4-8.2); Sodium Level 137 mmol/L (136-145)
[2022-02-27 12:02] VITALS: BP 131/63; PULSE 80; RESP 16; O2SAT 98
== END 2022-02-27 12:05 | disposition home or self-care (01) ==
PROVIDERS: Emergency Provider Emergency Medicine; PCP Family Medicine; Visit Provider Emergency Medicine
DX: M54.50 Low back pain, unspecified (principal); E11.9 Type 2 diabetes mellitus without complications; R53.81 Other malaise; I10 Essential (primary) hypertension; G89.29 Other chronic pain; M79.10 Myalgia, unspecified site; N20.0 Calculus of kidney; Z90.49 Acquired absence of other specified parts of digestive tract
CPT/HCPCS: 74176; 80053; 81001; 81025; 85025; 99283; J7030; A4216; J2405

== ENCOUNTER → 2022-05-04 | Outpatient (CLI) | payer OTHER, SELFPAY ==
--- NOTE | 2022-05-04 06:41 | RAD_ITS ---
STUDY: X-RAY - UNILATERAL RIBS ( LEFT ) WITH CHEST REASON FOR EXAM: Female, 41 years old. RIB PAIN TECHNIQUE - RIBS: 4 view(s) of the ribs. TECHNIQUE - CHEST: COMPARISON: None. FINDINGS - RIBS: Normal visualized ribs without a demonstrated fracture. FINDINGS - CHEST: The lungs are clear and expanded. There is no demonstrated pleural abnormality. Normal size heart. Normal mediastinum and osman. Normal visualized pulmonary arteries. Normal visualized aortic arch and descending thoracic aorta. Normal visualized thoracic spine. Normal visualized ribs, clavicles, and shoulders. There is no demonstrated abnormality of the visualized soft tissue structures of the upper abdomen. RAD/Ribs Uni Min 3V w/PA Chest IMPRESSION: RIBS: Normal x-ray examination of the ribs. CHEST: Normal x-ray examination of the chest. Electronically Signed: Emiliano Gonzalez MD at 14:46 EDT ,
== END | disposition home or self-care (01) ==
LOC: RAD 06:30
PROVIDERS: PCP Family Medicine; Referring Provider Family Medicine; Visit Provider Family Medicine
DX: R07.81 Pleurodynia (principal)
CPT/HCPCS: 71101

== ENCOUNTER 2022-07-24 10:00 | Outpatient (RCR) | payer OTHER, SELFPAY ==
--- NOTE | 2022-02-14 14:46 | HP.PTEVAL ---
Patient's Visit Information TORI GARCIA is a 41 year old F referred to Physical Therapy by Dr. Zeferino Leon MD with a diagnosis of Low back pain. Date of Evaluation: 01/09/22 Physical Therapist: Santana Ruano DPT - Visit Plan Frequency: 2x /Week Duration: 6 Weeks Plan: Start with REIL, neutral spine core stability exercises. Utilize DN to reduce muscle gaurding in lumbar spine. - Subjective Pt. is here today for her initial evaluation with diagnosis of low back pain. Pt. reports having low back pain for years, but has been slowly worsening. 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 [facility] noted. Pt. reports increased pain with lifting, bend, prolonged standing. Pain with both jobs and especially with working both jobs in same day. She reports heat helps and chiropractor helps as well. She denies radiating pain, but reports when she gets home her pain is pretty bad. She is able to sleep without much issues. She is hopeful to reduce symptoms in order to get back to all work activities without increase in symptoms. - Pain Lumbar spine Pain Intensity (Out of 10): 5 Pain Intensity Range: 2, 8 - Objective POSTURE: Pt. has sway back posture, over wt. She is able to correct, but unable to maintain. PALPATION: pt. has increased pain along bilateral lumbar erector spinae. Spring testing throughout lumbar spine is hypomobility, but not painful. NEURO: normal DTR of BLEs, normal sensation to light and sharp touch. ROM: Lumbar spine: flexion min loss increase NW, ext mod loss increase NS, SB min loss NE bilat, rotation min/mod loss mild increase NW bilat. Pt. has tight HS and hip flexors bilaterally. MMT: Pt. has good strength 5/5 of distal LEs, 4+/5 throughout B hips. Core strength: poor mild increase NW with testing. GAIT: Pt. has increased lateral hip translation, no major Trendelenburg, but has slight. Pt. has decreased arm swing as well. - Special Tests L/S Slump test left side: Negative L/S Slump test right side: Negative L/S Left Straight Leg Raise: Negative L/S Right Straight Leg Raise: Negative Lumbar Standing: Flexion - Mechanical Response: No effect Lumbar Standing: Flexion - Symptoms During Testing: Increases Lumbar Standing: Flexion - Symptoms After Testing: No worse Lumbar Standing: Extension - Mechanical Response: No effect Lumbar Standing: Extension - Symptoms During Testing: Increases Lumbar Standing: Extension - Symptoms After Testing: No worse Lumbar Standing: Right Side Glides - Mechanical Response: No effect Lumbar Standing: Right Side [place]ib[place] - Symptoms During Testing: No effect Lumbar Standing: Right Side [place] - Symptoms After Testing: No effect Lumbar Standing: Left Side [place] - Mechanical Response: No effect Lumbar Standing: Left Side [place] - Symptoms During Testing: No effect Lumbar Standing: Left Side [place] - Symptoms After Testing: No effect Lumbar Lying: Flexion - Mechanical Response: No effect Lumbar Lying: Flexion - Symptoms During Testing: Decreases Lumbar Lying: Flexion - Symptoms After Testing: No better Lumbar Lying: Extension - Mechanical Response: No effect Lumbar Lying: Extension - Symptoms During Testing: Abolishes Lumbar Lying: Extension - Symptoms After Testing: No worse Lumbar Static: Slouched Sit - Mechanical Response: No effect Lumbar Static: Slouched Sit - Symptoms During Testing: No effect Lumbar Static: Slouched Sit - Symptoms After Testing: No effect Lumbar Static: Sitting Erect - Mechanical Response: No effect Lumbar Static: Sitting Erect - Symptoms During Testing: No effect Lumbar Static: Sitting Erect - Symptoms After Testing: No effect Lumbar Static:Lying Prone in Extension - Mechanical Response: No effect Lumbar Static: Lying Prone in Extension - Sx During Testing: Decreases Lumbar Static: Lying Prone in Extension - Sx After Testing: No better - Balance/Special Test Scores Oswestry Low Back Score: 30 - Goals Goal 1:: LTG: Pt. to be I with HEP for lumbar ROM and core stability exercises. Goal Time Frame: 4-6 Weeks Goal 2:: STG: Pt. to have pain in lumbar spine decreased to 0-3/10 throughout the day. Goal Time Frame: 2-4 Weeks Goal 3:: LTG: Pt. to be able to work for 4-5 hours with 0-2/10 pain in lumbar spine. Goal Time Frame: 4-6 Weeks Goal 4:: LTG: Pt. to have increased core and hip strength increased to 5/5 throughout to reduce stress applied to lumbar spine with all functional and work activities. Goal Time Frame: 4-6 Weeks Goal 5:: LTG: Pt. to have full lumbar ROm without increase in symptoms. Goal Time Frame: 2-4 Weeks - Rehabilitation Potential Physical Therapy Diagnosis: Pt. has signs and symptoms consistent with Low back pain. She did not have any radiating symptoms this date, but did have increased pain with all mobility. She has marked weakness with her BLEs and with core strength. She is also very stiff with HS and with extension ROM of lumbar spine. Pt. would benefit from PT to increase her lumbar ROM, increase core strength and progress back to all work and recreational activities without limitations. Rehabilitation Potential: Good - Anticipated Interventions Patient/Client Instruction: Educate patient on: Condition, Plan of Care, Risk Factors, Benefits of Fitness Program For the Purpose of:: To foster healthy habits, To improve decision making, To facilitate caregiver knowledge, To improve self management, To prevent re-injury, To improve ability to perform tasks related to life management Therapeutic Exercise to Include: Strength training, Power training, Coordination, Passive ROM, Active ROM, Dynamic Lumbar Stabilization, Alin Exercises For the Purpose of:: To decrease pain, To decrease swelling/inflammation, To increase ROM, To improve nutrient delivery to tissue, To increase oxygenation perfusion, To improve muscle performance and motor function, To improve health of tissue, To decrease soft tissue restriction, To increase flexibility/ROM, To improve endurance Manual Therapy Techniques to Include: Mobilization, Functional dry needling, Soft tissue mobilization For the Purpose of:: To decrease pain, To decrease swelling/inflammation, To increase ROM, To improve nutrient delivery to tissue, To increase oxygenation perfusion, To improve muscle performance and motor function, To improve ability to perform ADL's Thank you for the opportunity to evaluate your patient. For Medicare and Medicare HMO plans, please review the plan of care and approve it. It will need to be FAXED BACK to us at [phone] for Medicare purposes. For Medicare only, by signing this I certify the plan of care. Please let me know if there are questions or concerns regarding this plan of care. Physician Signature: Date:
--- NOTE | 2022-03-13 10:42 | HP.PTREVAL_ITS ---
Dr. Zeferino Leon MD, It has been my pleasure to treat TORI GARCIA over the last 9 visits for Low back pain. Please see the progress note below for an update on the physical therapy plan of care! Subjective: Pt. reports overall doing well. Pt. reports 2/10 pain today. She is pleased. She did work less this weekend. She reports doing well with ch iropractor as well. She is still having L shoulder pain. Pt. to see specialist later this month. She continues to report relief with DN and exercises. Objective/Function: ROM: LUMBAR SPINE: flexion min loss increase NW (tightness), exten min loss NE, SB min loss NE bilat, rotation min loss NE bilat. Pt. has slight tightness in B HS, but minimal Normal hip extension bilaterally. POSTURE: pt. has increased anterior pelvic tilt. She is able to correct independently with VC/TCing to complete. Normal rest of posture. Symptoms do feel better with correction of pelvic tilt. MMT: 5/5 throughout BLEs. Core strength- fair-. Frequent Vcing for TA contraction and PPT positioning. GAIT: Pt. has wide AUGUSTIN in stance. Pt. has improved postural control. She still experiences pain with increased lumbar flexion and work activities. She is feeling better today, but may be due to working less this weekend. She reports having relief with exercises and DN. I will extend her a few more weeks with plan of weaning from PT to I exercises and self management. Plan Plan: I will extend her a few more weeks with plan of weaning from PT to I exe rcises and self management. Cont. to work on body mechanics with lifting and work movements to reduce stress to lumbar spine. Cont. to with core stability, DN to lumbar erect spinae and multifidus. Balance/Gait/Functional tests - Balance/Special Test Scores Oswestry Low Back Score: 21 Goals Goal 1:: LTG: Pt. to be I with HEP for lumbar ROM and core stability exercises. Goal Time Frame: 4-6 Weeks Goal Progress: Progressing Goal 2:: STG: Pt. to have pain in lumbar spine decreased to 0-3/10 throughout the day. Goal Time Frame: 2-4 Weeks Goal Progress: Progressing Goal 3:: LTG: Pt. to be able to work for 4-5 hours with 0-2/10 pain in lumbar spine. Goal Time Frame: 4-6 Weeks Goal Progress: Progressing Goal 4:: LTG: Pt. to have increased core and hip strength increased to 5/5 throughout to reduce stress applied to lumbar spine with all functional and work activities. Goal Time Frame: 4-6 Weeks Goal Progress: Progressing Goal 5:: LTG: Pt. to have full lumbar ROm without increase in symptoms. Goal Time Frame: 2-4 Weeks Goal Progress: Progressing Anticipated Interventions Patient/Client Instruction: Educate patient on: Condition, Plan of Care, Risk Factors, Benefits of Fitness Program For the Purpose of:: To foster healthy habits, To improve decision making, To facilitate caregiver knowledge, To improve self management, To prevent re- injury, To improve ability to perform tasks related to life management Therapeutic Exercise to Include: Strength training, Power training, Coordination, Passive ROM, Active ROM, Dynamic Lumbar Stabilization, Alin Exercises For the Purpose of:: To decrease pain, To decrease swelling/inflammation, To increase ROM, To improve nutrient delivery to tissue, To increase oxygenation perfusion, To improve muscle performance and motor function, To improve health of tissue, To decrease soft tissue restriction, To increase flexibility/ROM, To improve endurance Manual Therapy Techniques to Include: Mobilization, Functional dry needling, Soft tissue mobilization For the Purpose of:: To decrease pain, To decrease swelling/inflammation, To increase ROM, To improve nutrient delivery to tissue, To increase oxygenation perfusion, To improve muscle performance and motor function, To improve ability to perform ADL's Please do not hesitate to contact me at [phone] by phone or if you have questions or concerns regarding this new plan of care! Sincerely, Santana Ruano DPT
--- NOTE | 2022-06-27 17:25 | HP.PTEVAL2 ---
Patient's Visit Information TORI GARCIA is a 42 year old F referred to Physical Therapy by Dr. Zeferino Leon MD with a diagnosis of chronic L shoulder pain, L adhesive capsulitis and L shoulder OA. Date of Evaluation: 06/27/22 Physical Therapist: Santana Ruano DPT - Visit Plan Frequency: 1x/Week Duration: 6 Weeks Plan: Start with working on pressing pain free ROM especially into functional rotations. Add in RTC, deltoid and periscapular strengthening slighting light and progressing as tolerated. May consider DN into scapular/periscapular musculature as need for muscle spasming/pain control. - Subjective Subjective: Pt. is here today for her new evaluation with diagnosis of chronic L shoulder pain, L adhesive capsulitis and L shoulder OA. Pt. reports having pain in her shoulder for a few years now. She did have a nerve block which is has been doing better. She was also recently off work for ~10 days. She was on vacation during this time, but was doing theme morales, etc. She reports no N/T in arm and not much pain currently. Pt. reports it hurts just a little. 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 Pt. does work two jobs. NO issues with sleeping currently. She is mostly noticing tightness. - Pain L shoulder Intensity: 2 Pain Intensity Range: 0, 3 - Objective Objective: POSTURE: Pt. slight increase in FH posture, rounded shoulders. Pt. is able to to improve, but does have dowager's hump. PALPATION: Pt. has increased tenderness at biceps tendon, teres minor muscle belly, and UT region. NEURO: Pt. has normal sensation in BUEs and normal DTR of BUEs. ROM: AROM: L shoulder: flexion 170deg, abd 170deg, functional ER C5 tightness noted, functional IR L3 increase NW. R shoulder full motion no pain with end range over pressure. PROM: Pt. has mild increase in pain at all end ranges of motion. MMT: R shoulder flexion: 23#, abd 23.1#, ext 30.7#, ER 21.2#, IR 22.1#. L shoulder: flexion: 17.3#, abd 13.7#, ext 24# mild increase NW, ER 15.2#, IR 18.3# mild increase NW. Regulatory And Compliance Technician strength: R 50#, L 55#. - Special Tests Empty Can - SS: Positive Belly Press - SupScap: Negative Neer - Impingement: Positive Ji Zac - Impingement: Positive - Goals Goal 1:: LTG: Pt. to be I with HEP for L shoulder ROM and strengthening exercises. Goal Time Frame: 2-4 Weeks Goal 2:: STG: Pt. to sleep throughout the night without increase in symptoms. Goal Time Frame: 2 Weeks Goal 3:: LTG: pt. 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 to have increased L scapular, deltoid and periscapular musculature strength symmetrical to R side. (current strength: R shoulder flexion: 23#, abd 23.1#, ext 30.7#, ER 21.2#, IR 22.1#. L shoulder: flexion: 17.3#, abd 13.7#, ext 24# mild increase NW, ER 15.2#, IR 18.3# mild increase NW.) Goal Time Frame: 4-6 Weeks Goal 5:: STG: pt. to have full L shoulder ROM without increase in symptoms. Goal Time Frame: 2-4 Weeks - Rehabilitation Potential Physical Therapy Diagnosis: Pt. has signs and symptoms consistent with chronic L shoulder pain, L adhesive capsulitis and L shoulder OA. Pt. has slight loss in end range of motion, most notably into functional ER and IR. She also has marked L shoulder weakness throughout L shoulder when compared to R shoulder. She would benefit from PT to work on end range stretching and slowly progress shoulder strengthening. Rehabilitation Potential: Excellent - Anticipated Interventions Patient/Client Instruction: Educate patient on: Condition, Plan of Care, Risk Factors, Benefits of Fitness Program For the Purpose of:: To foster healthy habits, To improve decision making, To facilitate caregiver knowledge, To improve self management, To prevent re-injury, To improve ability to perform tasks related to life management Therapeutic Exercise to Include: Strength training, Power training, Coordination, Body mechanics, Postural training, Flexibilty training, Passive ROM, Active ROM, Scapular Strength/Stabilization For the Purpose of:: To decrease pain, To decrease swelling/inflammation, To increase ROM, To improve nutrient delivery to tissue, To increase oxygenation perfusion, To improve muscle performance and motor function, To improve health of tissue, To decrease soft tissue restriction, To increase flexibility/ROM Manual Therapy Techniques to Include: Functional dry needling, Soft tissue mobilization For the Purpose of:: To decrease pain, To decrease swelling/inflammation, To increase ROM Thank you for the opportunity to evaluate your patient. For Medicare and Medicare HMO plans, please review the plan of care and approve it. It will need to be FAXED BACK to us at [phone] for Medicare purposes. For Medicare only, by signing this I certify the plan of care. Please let me know if there are questions or concerns regarding this plan of care. Physician Signature: Date:
== END 2022-07-24 19:00 | disposition home or self-care (01) ==
LOC: PT 10:00
PROVIDERS: PCP Family Medicine; Referring Provider Family Medicine; Visit Provider Family Medicine
DX: M51.9 Unspecified thoracic, thoracolumbar and lumbosacral intervertebral disc disorder (principal)
CPT/HCPCS: 97110; 97140; 97161; 97164

== ENCOUNTER → 2022-08-08 | Outpatient (CLI) | payer OTHER, SELFPAY ==
[2022-08-08 09:44] LABS: Hemoglobin A1c 5.3 % (3.8-5.6)
[2022-08-08 10:14] LABS: Cholesterol 168 mg/dL (200); High Density Lipoprotein 37 mg/dL; Thyroid Stim Hormone (TSH) 3.38 uIU/mL (0.358-3.74); Triglycerides 176 mg/dL; Very Low Density Lipoprotein 35 mg/dL (5-40)
== END | disposition home or self-care (01) ==
LOC: PAVLAB 09:14
PROVIDERS: PCP Family Medicine; Referring Provider Psychiatry & Neurology Sleep Medicine; Visit Provider Psychiatry & Neurology Sleep Medicine
DX: G47.33 Obstructive sleep apnea (adult) (pediatric) (principal); E11.29 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 kidney complication; E66.01 Morbid (severe) obesity due to excess calories; Z68.42 Body mass index [BMI] 45.0-49.9, adult; Z79.4 Long term (current) use of insulin; G43.019 Migraine without aura, intractable, without status migrainosus; G44.40 Drug-induced headache, not elsewhere classified, not intractable; R80.9 Proteinuria, unspecified
CPT/HCPCS: 36415; 80061; 83036; 84443

== ENCOUNTER → 2022-08-10 | Outpatient (CLI) | payer OTHER, SELFPAY ==
--- NOTE | 2022-08-10 14:47 | BI_ITS ---
MAMMOGRAPHY - BILATERAL SCREENING REASON FOR EXAM: Female, 42 years old. Routine annual screening examination. PERTINENT HISTORY: Non-contributory. TECHNIQUE: Digital bilateral breast zafar (3D mammographic acquisition) in the CC and MLO projections. 2-D mediolateral oblique (MLO) and craniocaudad (CC) views of both breasts were obtained. CAD: Full Field Digital Mammography with Computer Added Detection was performed. COMPARISON: None. Baseline examination. FINDINGS: Breast Composition: The breasts are heterogeneously dense, which may obscure small masses. There are no dominant masses or suspicious calcifications. Small benign-appearing bilateral axillary lymph nodes. No other significant abnormalities are identified. BI/SCRN MAMM (CAD)W/ZAFAR BILAT IMPRESSION: Negative screening mammogram. Yearly followup mammogram recommended. (A) ASSESSMENT CATEGORY: BIRADS Category 2: Benign. A letter regarding these results will be sent to the patient by the facility within 30 days. Approximately 10% of breast cancers are not detected by mammography. A normal mammogram should not delay biopsy of a clinically suspicious abnormality. [id number] Electronically Signed: Emiliano Gonzalez MD at 15:30 EDT ,
== END | disposition home or self-care (01) ==
LOC: OPBI 14:45
PROVIDERS: PCP Family Medicine; Visit Provider Family Medicine
DX: Z12.31 Encounter for screening mammogram for malignant neoplasm of breast (principal)
CPT/HCPCS: 77063; 77067

== ENCOUNTER → 2022-08-29 | Outpatient (CLI) | payer OTHER, SELFPAY ==
[2022-08-29 10:28] LABS: Magnesium 1.7 mg/dL (1.6-2.6)
== END | disposition home or self-care (01) ==
LOC: PAVLAB 09:32
PROVIDERS: PCP Family Medicine; Referring Provider Internal Medicine Cardiovascular Disease; Visit Provider Internal Medicine Cardiovascular Disease
DX: R94.31 Abnormal electrocardiogram [ECG] [EKG] (principal)
CPT/HCPCS: 36415; 83735

== ENCOUNTER → 2022-08-30 | Outpatient (CLI) | payer OTHER, SELFPAY ==
--- NOTE | 2022-08-30 13:01 | ECHOD_ITS ---
Reason For Study: ABN EKG Procedure This was a 2D Doppler, Color Flow transthoracic echocardiogram. Exam performed in department. Left Ventricle Normal size and thickness. The left ventricular ejection fraction is 65 %. Normal diastololic function. Right Ventricle Normal right ventricle. Atria The left atrium is moderately enlarged. Normal right atrium. Mitral Valve The mitral valve is structurally normal. No prolapse or stenosis seen. Tricuspid Valve Unable to estimate RV systolic pressure due to inadequate jet, pulmonary artery pressure probably normal. Aortic Valve Normal aortic valve. Pulmonic Valve The pulmonic valve is not well visualized. Great Vessels Normal sized aortic root. Pericardium/Pleural No pericardial effusion. MMode/2D Measurements & Calculations LVIDd: 5.1 cm IVSd: 1.1 cm Ao root diam: 3.1 cm LVIDs: 2.8 cm LVPWd: 1.1 cm RVDd: 2.9 cm FS: 46.2 % LAV(MOD-bp): 65.6 ml LA A4 area: 24.8 cm2 LA dimension(2D): 4.5 cm LAV(MOD-bp) Indexed: 28.6 ml/m2 LAV(MOD-sp2): 37.5 ml LAV(MOD-sp4): 90.1 ml RA A4 area: 14.4 cm2 Time Measurements MV dec time: 0.20 sec Doppler Measurements & Calculations MV E max roberto: 74.3 cm/sec Lat Peak E' Roberto: 9.2 cm/sec Med Peak E' Roberto: 12.1 cm/sec MV A max roberto: 63.3 cm/sec E/E' lat: 8.1 E/E' med: 6.1 MV E/A: 1.2 MV dec slope: 383.0 cm/sec2 Ao V2 max: 139.4 cm/sec LV V1 max: 113.3 cm/sec Ao max P.8 mmHg LV V1 max P.1 mmHg PA V2 max: 108.1 cm/sec ECHO/Echo Complete Interpretation Summary The left ventricular ejection fraction is 65 %. The left atrium is moderately enlarged. Ordering Physician: Zhao Guerrero Referring Physician: Zhao Guerrero Performed By: Lorie Sun RDCS, RVT
== END | disposition home or self-care (01) ==
LOC: CVS 13:00
PROVIDERS: PCP Family Medicine; Referring Provider Internal Medicine Cardiovascular Disease; Visit Provider Internal Medicine Cardiovascular Disease
DX: R94.31 Abnormal electrocardiogram [ECG] [EKG] (principal)
CPT/HCPCS: 93306

== ENCOUNTER → 2022-09-06 | Outpatient (CLI) | payer OTHER, SELFPAY ==
[2022-09-06 13:14] LABS: Absolute Lymphocyte Count 2.67 X10^3/uL (0.83-4.51); Absolute Neutrophil Count 6.2 X10^3/uL (2.0-7.7); Basophil# 0.05 X10^3/uL; Basophil% 0.5 % (0-1); Eosinophils% 2.1 % (0-5); Hematocrit 38.7 % (37-47); Hemoglobin 13.6 g/dL (12.0-15.0); Lymphocyte # 2.67 X10^3/ul (0.83-4.51); Lymphocyte % 27.8 % (19-41); Mean Corp Hgb Conc 35.1 g/dL (32-36); Mean Corpuscular Hgb 31.7 pg (27.0-32.0); Mean Corpuscular Volume 90.2 fL (81-99); Mean Platelet Vol. 9.6 fl (6.2-12.0); Monocyte# 0.41 X10^3/uL; Monocyte% 4.3 % (0-10); NRBC Flagged by Analyzer 0 % (0-5); Neutrophil # 6.18 X10^3/uL (2.7-7.7); Neutrophil % 64.2 % (47-70); Platelet Count 190 K/mm3 (150-450); RBC Distribution Width CV 12.9 % (11.6-14.6); RBC Distribution Width SD 42.5 fl (35.1-43.9); Red Blood Count 4.29 M/mm3 (4.2-5.4); White Blood Count 9.6 K/mm3 (4.4-11.0)
[2022-09-06 13:36] LABS: Anion Gap 6 (5-15); BUN 13 mg/dL (7-18); BUN/Creat Ratio 15.9 RATIO (10-20); Calcium,Total 8.7 mg/dL (8.5-10.1); Chloride 110 mmol/L (98-107); Creatinine, Serum 0.82 mg/dL (0.55-1.02); EST Glomerular Filtration Rate 82 mL/min (>60); Est Glom Filt Rate - Afr Amer 100 mL/min (>60); Glucose 120 mg/dL (74-106); Potassium 3.6 mmol/L (3.5-5.1); Sodium Level 139 mmol/L (136-145); Thyroid Stim Hormone (TSH) 1.56 uIU/mL (0.358-3.74)
== END | disposition home or self-care (01) ==
LOC: PAVLAB 12:38
PROVIDERS: PCP Family Medicine; Referring Provider Family Medicine; Visit Provider Family Medicine
DX: R42 Dizziness and giddiness (principal)
CPT/HCPCS: 36415; 80048; 84443; 85025

== ENCOUNTER → 2022-10-15 | Outpatient (CLI) | payer OTHER, SELFPAY | END | disposition home or self-care (01) | LOC: SL 09:57 | PROVIDERS: PCP Family Medicine; Visit Provider Internal Medicine Critical Care Medicine | DX: G47.33 Obstructive sleep apnea (adult) (pediatric) (principal) ==

== ENCOUNTER 2022-11-24 11:43 | Emergency (ER) | payer OTHER, SELFPAY ==
[2022-11-24 11:44] VITALS: BP 151/91; PULSE 64; RESP 16; TEMP 36.6; O2SAT 98; BMI 47.2
--- NOTE | 2022-11-24 12:21 | EX.ED.GENINJ ---
HPI History of Present Illness Chief Complaint: Head Injury Informant: patient Onset/Context/Timing Onset: Today Mechanism/Context: Fall Quality of Pain: Aching Location: occiput Worsened by: Nothing Relieved by: Closing eyes Associated Symptoms Associated Symptoms: Positive for Loss of consciousness; Negative for Parasthesias, Weakness, Loss of function, Inability to ambulate or Amnesia Length of loss of consciousness: Approximately 15 minutes Narrative Narrative: Patient presents with head injury that began after a fall today. Patient states she was cleaning a bed when the side rail came down. Patient states she fell backwards and hit her head on the wall. Patient also states she hit her right wrist and forearm on the wall and windowsill. Patient describes her pain as aching. Patient states it is better when she is able to close her eyes. Patient states she did lose consciousness for approximately 15 minutes. Patient denies any paresthesias or weakness. Patient denies any nausea or vomiting. Patient states she has had some rhinorrhea after the fall. Patient states that when she woke up, she was seeing stars. [facility] Medical History Acute bronchitis Acute cholecystitis Acute kidney injury Acute respiratory insufficiency Anxiety Calculus of left kidney Dysuria History of obstructive sleep apnea History of stent into kidney Hydronephrosis, left Hydroureter, left Left shoulder pain Left shoulder strain Left upper quadrant abdominal pain Microalbuminuria Nausea Obstructive Sleep Apnea-Hypopnea Syndrome LETITIA (obstructive sleep apnea) Pain of left scapula Type 2 diabetes mellitus with microalbuminuria Type 2 diabetes mellitus without complication, with long-term current use of insulin Urinary tract infection Home Medications lisinopril 5 mg tablet 5 mg PO DAILY HTN 02/14/19 [History Last Taken 09/23/19] blood sugar diagnostic (Blood Glucose Test strips) #10 ea 04/26/20 [History Last Taken Unknown] [id number] 1 mg capsule 1 cap PO DAILY 04/26/20 [History Last Taken Unknown] ipratropium bromide 21 mcg (0.03 %) nasal spray 2 spray intranasal BID 08/23/20 [History Last Taken Unknown] omega-3 fatty acids 1,000 mg capsule (Fish Oil Concentrate) 1,000 mg PO DAILY 02/21/21 [History Last Taken Unknown] gabapentin 100 mg capsule 200 mg PO BID 01/01/22 [History Last Taken Unknown] albuterol sulfate 90 mcg/actuation aerosol inhaler 2 puff inhalation Q4H PRN shortness of breath or wheezing 08/10/22 [History Last Taken Unknown] dulaglutide 0.75 mg/0.5 mL subcutaneous pen injector (Trulicity) 0.75 mg subcut QWEEK 08/10/22 [History Last Taken Unknown] fexofenadine 180 mg tablet (Allergy Relief (fexofenadine)) 180 mg PO DAILY 08/10/22 [History Last Taken Unknown] levonorgestrel 17.5 mcg/24 hrs (5yrs) 19.5mg intrauterine device 1 device intrauterine ONCE 08/10/22 [History Last Taken Unknown] metronidazole 0.75 % topical gel 1 applic topical BID 08/10/22 [History Last Taken Unknown] sumatriptan succinate 50 mg tablet 50 mg PO ONCE PRN migraine headache 08/10/22 [History Last Taken Unknown] tizanidine 4 mg tablet 4 mg PO Q8H PRN Muscle Spasm 08/10/22 [History Last Taken Unknown] omeprazole 20 mg capsule,delayed release 20 mg PO DAILY PRN 08/16/22 [History Last Taken Unknown] topiramate 100 mg tablet 100 mg PO BID 08/16/22 [History Last Taken Unknown] Allergy/AdvReac Type Severity Reaction Status Date / Time Corticosteroids Allergy Hives Verified 11/24/22 11:47 (Glucocorticoids) [steroids] lidocaine AdvReac Intermediate Hives Verified 11/24/22 11:47 Family History Father Diabetes Myocardial infarction Pancreatic cancer Mother Alcohol abuse Drug abuse Grandfather Diabetes Grandmother Lung cancer Grandmother Heart disease Triple bypass surgery Surgical History H/O: (~2005) History of urethral stent (~2018) Hx laparoscopic cholecystectomy (~2005) Social History Smoking Status: Never smoker alcohol intake: never substance use type: does not use caffeine: Yes Type: coffee what type of physical activity do you participate in: walking frequency: daily seatbelt use: always do you feel safe at home: Yes ROS ROS ED Constitutional Constitutional ED: Denies chills or fever(s) Eyes Eyes: Reports blurry vision and change in vision ENT ENT ED: Reports rhinorrhea; Denies sore throat Cardiovascular Cardiovascular: Denies chest pain or palpitations Respiratory/Chest Respiratory/Chest: Denies cough or dyspnea Gastrointestinal Gastrointestinal: Denies nausea or vomiting Genitourinary Genitourinary ED: Denies dysuria or hematuria Musculoskeletal Musculoskeletal: Reports neck pain; Denies back pain Integumentary Denies abscess or rash Neurologic Neurologic: Reports headache(s); Denies weakness Allergic/Immunologic Allergic/Immunologic ED: Denies mouth swelling or urticaria EXAM Physical Exam Const Vital Signs: 11/24/22 11:44 11/24/22 13:43 Temperature 97.9 F Temperature Source Oral Pulse Rate 64 78 Respiratory Rate 16 16 Blood Pressure 151/91 H 132/64 H Blood Pressure Mean 111 86 Pulse Ox 98 99 Oxygen Delivery Method Room Air Room Air Positive well nourished, well developed and obese General Appearance ED: well developed and NAD Nutritional Appearance: obese HEENT Reports moist mucous membranes HEENT Narrative: There is tenderness over the occipital scalp. There is no bony crepitance or step-off. tenderness Neck no JVD Neck Narrative: Cervical collar is in place. There is tenderness over the cervical spine and paraspinal muscles. There is no bony crepitance or step-off. Resp normal respiratory effort and clear to auscultation bilaterally Cardio regular rate and regular rhythm GI normal to inspection, nondistended, normoactive bowel sounds and non-tender Palpation: soft Extremity normal to inspection Extremity Narrative: There is mild tenderness over the right wrist and ulnar aspect of the right forearm. There is no edema or ecchymosis. There is good range of motion. There is no obvious deformity noted. General Extremety ED: Negative for edema or tenderness General Extremity: Negative for edema Neuro oriented x3, CN's II-XII intact bilaterally, moves all extremities, no focal motor deficits and no sensory deficits noted Roberta Coma Scale: document GCS findings Spontaneous Obeys Commands Oriented 15 Sensorium / Orientation: alert Motor Exam: strength 5/5 throughout Psych mental status grossly normal Skin no rashes or lesions noted MDM MDM MDM Narrative Medical decision making narrative: Patient is currently on a backboard and cervical collar. We will obtain a CT scan of the brain and cervical spine to clear the cervical spine and check for intracranial hemorrhage, skull fracture, or other abnormality. We will obtain x-rays of the right wrist to check for fracture. Radiography Diagnostic Testing: Clinical Impression(s) from Imaging Studies Brain CT 11/24/22 12:27 IMPRESSION: No acute intracranial process identified. Electronically Signed: Nava Baron MD at 13:25 EST , Cervical Spine CT 11/24/22 12:27 IMPRESSION: No evidence for acute fracture or dislocation in the cervical spine. Mild degenerative disc disease of the lower cervical spine. Electronically Signed: Nava Baron MD at 13:23 EST , Wrist X-Ray 11/24/22 12:50 IMPRESSION: No acute fracture or dislocation identified in the right wrist. Electronically Signed: Nava Baron MD at 13:26 EST , CT scan of the brain was obtained. There is no acute intracranial abnormality. This was interpreted by the radiologist and was also independently reviewed by myself. CT scan of the cervical spine was obtained. On my independent interpretation, I do not see any fracture or spondylolisthesis. Radiologist also interpreted on CT scan and noted some mild degenerative disc disease of the lower cervical spine. X-rays of the right wrist were obtained. There are 3 views. On my independent interpretation, there is no acute fracture. There is no dislocation. There is no soft tissue swelling. Radiologist also interpreted the x-rays and agrees. Treatment and Re-Evaluation Narrative: The cervical collar and backboard were removed. Patient feels better on reevaluation. Patient was advised of her findings. Patient was instructed to get plenty of rest. Patient was instructed to take Tylenol or ibuprofen as needed for any pain. Patient was instructed to follow-up with her primary care physician in 5 to 7 days. Patient understood and was agreeable with the plan. All questions were answered. Discharge Plan Triage Chief Complaint: Head Injury ED Provider: Woody Shabazz Dx/Rx/DC Orders Clinical Impression: Closed head injury, Acute cervical myofascial strain, Contusion of right wrist, initial encounter Instructions: ED Soft Tissue Contusion, ED Head Injury (Adult), ED Neck Sprain or Strain Prescriptions: No Action [id number] 1 mg capsule 1 mg capsule 1 cap PO DAILY (DME) blood sugar diagnostic [Blood Glucose Test] Strip See Rx Instructions .ROUTE .MEDSUPPLY Qty: 10 Rx Instructions: As directed ipratropium bromide 0.03 % spray,non-aerosol 2 spray INTRANASAL BID Rx Instructions: administer into each nostril omega-3 fatty acids [Fish Oil Concentrate] 1,000 mg capsule 1,000 mg PO DAILY gabapentin 100 mg capsule 200 mg PO BID sumatriptan succinate 50 mg tablet 50 mg PO ONCE PRN (Reason: migraine headache) Label Comments: TAKE 1 TABLET BY MOUTH ATCHEADACHE ONSET. MAYDREPEAT AFTER 2 HOURS Trulicity 0.75 mg/0.5 mL pen injector 0.75 mg subcut QWEEK Label Comments: INJECT 1 PENaSUBCUTANEOUSLY ONCE PER WEEK fexofenadine [Allergy Relief (fexofenadine)] 180 mg tablet 180 mg PO DAILY levonorgestrel 17.5 mcg/24 hrs (5 yrs) 19.5 mg intrauterine device 1 device intrauterine ONCE Rx Instructions: as a single dose metronidazole 0.75 % gel 1 applic topical BID omeprazole 20 mg capsule,delayed release(DR/EC) 20 mg PO DAILY PRN Label Comments: Take 1 capsule by mouthndaily before breakfast. 1/2 hr before meal. topiramate 100 mg tablet 100 mg PO BID Label Comments: Take 1 tablet by mouthitwice daily. albuterol sulfate 90 mcg/actuation HFA aerosol inhaler 2 puff INHALATION Q4H PRN (Reason: shortness of breath or wheezing) tizanidine 4 mg tablet 4 mg PO Q8H PRN (Reason: Muscle Spasm) lisinopril 5 MG tablet 5 mg PO DAILY Label Comments: Take 1 tablet by mouth once daily. Primary Care Provider: Zeferino Leon Referrals: Zeferino Leon MD [Primary Care Provider] - 5-7 Days Disposition Disposition: Home, Self Care
--- NOTE | 2022-11-24 12:27 | CT_ITS ---
HISTORY: Injury, pain. TECHNIQUE: Multiple axial images were obtained of the head without intravenous contrast. A radiation dose optimization technique was used for this scan. 261 images. COMPARISON: 12/14/2018. FINDINGS: BRAIN PARENCHYMA: No significant attenuation abnormality. No acute intra-axial hemorrhage. CSF SPACES: Cerebral ventricles, cortical sulci, and other extra-axial CSF spaces within normal limits in size for age. No midline shift or other significant mass effect. No acute extra-axial hemorrhage. OTHER: Intact calvarium. No significant air fluid levels in the paranasal sinuses or mastoid air cells. Unremarkable orbits. CT/Brain/Head without Contrast IMPRESSION: No acute intracranial process identified. Electronically Signed: Nava Baron MD at 13:25 EST ,
--- NOTE | 2022-11-24 12:27 | CT_ITS ---
HISTORY: Injury, pain. TECHNIQUE: Helically acquired images were obtained of the cervical spine without contrast. 2D reformatted images were reviewed. A radiation dose optimization technique was used for this scan. 390 images. COMPARISON: XR 05/23/2021. FINDINGS: VERTEBRAE: Vertebral body heights maintained. Posterior elements intact. ALIGNMENT: No significant anterior or posterior subluxation. Straightening of the cervical lordosis. INTERVERTEBRAL DISCS: Mild anterior osteophyte and disc bulge of C5-6 and mild disc bulge at C6-7 resulting in mild narrowing of the thecal sac. SOFT TISSUES: No prevertebral soft tissue swelling. CT/Spine Cervical without Contras IMPRESSION: No evidence for acute fracture or dislocation in the cervical spine. Mild degenerative disc disease of the lower cervical spine. Electronically Signed: Nava Baron MD at 13:23 EST ,
--- NOTE | 2022-11-24 12:50 | RAD_ITS ---
HISTORY: Injury/Pain. TECHNIQUE: XR Wrist Min 3 Views. COMPARISON: None. FINDINGS: BONES : No acute fracture identified. Mineralization unremarkable. JOINTS: No dislocation. Joint spaces maintained. RAD/Wrist min 3 Views IMPRESSION: No acute fracture or dislocation identified in the right wrist. Electronically Signed: Nava Baron MD at 13:26 EST ,
[2022-11-24 13:43] VITALS: BP 132/64; PULSE 78; RESP 16; O2SAT 99
[2022-11-24 15:07] VITALS: PULSE 67; O2SAT 97
[2022-12-05 07:40] LABS: Bedside Glucose 89 mg/dL (74-106)
== END 2022-11-24 15:10 | disposition home or self-care (01) ==
PROVIDERS: Emergency Provider Emergency Medicine; PCP Family Medicine; Visit Provider Emergency Medicine
DX: S09.90XA Unspecified injury of head, initial encounter (principal); E11.9 Type 2 diabetes mellitus without complications; S60.211A Contusion of right wrist, initial encounter; S16.1XXA Strain of muscle, fascia and tendon at neck level, initial encounter; W19.XXXA Unspecified fall, initial encounter; G47.33 Obstructive sleep apnea (adult) (pediatric)
CPT/HCPCS: 70450; 72125; 73110; 82962; 99282; A4216

== ENCOUNTER 2022-11-27 14:35 | Emergency (ER) | payer OTHER, SELFPAY ==
[2022-11-27 14:36] VITALS: BP 154/81; PULSE 70; RESP 15; TEMP 36.7; O2SAT 99; BMI 42.7
--- NOTE | 2022-11-27 14:54 | CT_ITS ---
STUDY: CT BRAIN WITHOUT CONTRAST REASON FOR EXAM: Female, 42 years old. Headache after trauma RADIATION DOSAGE (If Supplied By Facility): CTDIvol = ( 47.06 ) mGy, DLP = ( 890.33 ) mGy TECHNIQUE: Transaxial CT imaging of the brain was performed without administration of intravenous contrast material. Individualized dose optimization techniques were used for this CT. COMPARISON: No relevant priors. FINDINGS: Normal soft tissue structures. Normal calvarium. Normal size ventricles and extra-axial spaces for the patient''s age. Normal white matter tracts of the cerebral hemispheres. Normal basal ganglia and thalami. Normal brainstem. Normal cerebellum. There is no intracranial hemorrhage. There are no findings of an acute ischemic infarction. Normal visualized paranasal sinuses. CT/Brain/Head without Contrast IMPRESSION: Normal unenhanced CT scan of the brain. Electronically Signed: Alf Johnson MD at 15:20 EST ,
--- NOTE | 2022-11-27 15:52 | EX.ED.DYSGE1 ---
HPI History of Present Illness Chief Complaint: Headache Informant: patient Narrative Narrative: Patient Attila presents with headache. She had a mechanical fall at work recently. She fell backwards when a railing gave way. She landed on the ground and her head hit the wall. But it hit a marble windowsill. She reportedly would have a prolonged loss of consciousness after that. She was seen here. She had CT scan of the head and neck and wrist x-rays. But she states she still having a lot of headaches. She gets nauseated when she looks at lights. She is not having neurologic symptoms such as numbness tingling or weakness. She does have a history of significant migraines. She is on topiramate routinely and has a triptan on as needed basis. She is set to have Botox injections for these headaches. She is unsure if she is having headache from the injury directly or headache from a migraine contributed and caused by the injury. Nothing specifically makes this better but bright lights do make it worse. She has not been having fevers chills cough or other symptoms consistent with a viral illness. [facility] Medical History Acute bronchitis Acute cholecystitis Acute kidney injury Acute respiratory insufficiency Anxiety Calculus of left kidney Dysuria History of obstructive sleep apnea History of stent into kidney Hydronephrosis, left Hydroureter, left Left shoulder pain Left shoulder strain Left upper quadrant abdominal pain Microalbuminuria Nausea Obstructive Sleep Apnea-Hypopnea Syndrome LETITIA (obstructive sleep apnea) Pain of left scapula Type 2 diabetes mellitus with microalbuminuria Type 2 diabetes mellitus without complication, with long-term current use of insulin Urinary tract infection Home Medications lisinopril 5 mg tablet 5 mg PO DAILY HTN 02/14/19 [History Last Taken 09/23/19] blood sugar diagnostic (Blood Glucose Test strips) #10 ea 04/26/20 [History Last Taken Unknown] [id number] 1 mg capsule 1 cap PO DAILY 04/26/20 [History Last Taken Unknown] ipratropium bromide 21 mcg (0.03 %) nasal spray 2 spray intranasal BID 08/23/20 [History Last Taken Unknown] omega-3 fatty acids 1,000 mg capsule (Fish Oil Concentrate) 1,000 mg PO DAILY 02/21/21 [History Last Taken Unknown] gabapentin 100 mg capsule 200 mg PO BID 01/01/22 [History Last Taken Unknown] albuterol sulfate 90 mcg/actuation aerosol inhaler 2 puff inhalation Q4H PRN shortness of breath or wheezing 08/10/22 [History Last Taken Unknown] dulaglutide 0.75 mg/0.5 mL subcutaneous pen injector (Trulicity) 0.75 mg subcut QWEEK 08/10/22 [History Last Taken Unknown] fexofenadine 180 mg tablet (Allergy Relief (fexofenadine)) 180 mg PO DAILY 08/10/22 [History Last Taken Unknown] levonorgestrel 17.5 mcg/24 hrs (5yrs) 19.5mg intrauterine device 1 device intrauterine ONCE 08/10/22 [History Last Taken Unknown] metronidazole 0.75 % topical gel 1 applic topical BID 08/10/22 [History Last Taken Unknown] sumatriptan succinate 50 mg tablet 50 mg PO ONCE PRN migraine headache 08/10/22 [History Last Taken Unknown] tizanidine 4 mg tablet 4 mg PO Q8H PRN Muscle Spasm 08/10/22 [History Last Taken Unknown] omeprazole 20 mg capsule,delayed release 20 mg PO DAILY PRN 08/16/22 [History Last Taken Unknown] topiramate 100 mg tablet 100 mg PO BID 08/16/22 [History Last Taken Unknown] Allergy/AdvReac Type Severity Reaction Status Date / Time Corticosteroids Allergy Hives Verified 11/27/22 14:36 (Glucocorticoids) [steroids] lidocaine AdvReac Intermediate Hives Verified 11/27/22 14:36 Family History Father Diabetes Myocardial infarction Pancreatic cancer Mother Alcohol abuse Drug abuse Grandfather Diabetes Grandmother Lung cancer Grandmother Heart disease Triple bypass surgery Surgical History H/O: (~2005) History of urethral stent (~2018) Hx laparoscopic cholecystectomy (~2005) Social History Smoking Status: Never smoker alcohol intake: never substance use type: does not use caffeine: Yes Type: coffee what type of physical activity do you participate in: walking frequency: daily seatbelt use: always do you feel safe at home: Yes ROS ROS ED Constitutional Constitutional ED: Denies chills or fever(s) Eyes Eyes: Reports other Details: Positive photophobia ; Denies change in vision ENT ENT ED: Denies rhinorrhea Cardiovascular Cardiovascular: Denies chest pain or palpitations Respiratory/Chest Respiratory/Chest: Denies cough or dyspnea Gastrointestinal Gastrointestinal: Reports nausea; Denies vomiting Musculoskeletal Musculoskeletal: Reports neck pain; Denies back pain Integumentary Denies Abrasions Neurologic Neurologic: Reports headache(s); Denies paresthesias or weakness Hematologic/Lymphatic Hematologic/Lymphatic: Denies easy bleeding or easy bruising EXAM Physical Exam Narrative Exam Narrative: Patient awake alert pleasant very cooperative and a very clear informant. She is in a dark room as this is more comfortable for her HEENT shows no sign of acute trauma. No rash noted. No facial tenderness. Eyes show some mild photophobia but her pupils are about 3 and half millimeters equal and reactive bilaterally. Neck shows some generalized soreness but no focal bony tenderness. Chest is clear. Heart is regular. Abdomen is nontender. Extremities show no tenderness. She has some soreness of the right wrist but really no focal tenderness. Most of her soreness is in the thenar eminence area. It is not snuffbox. Skin: Shows no rashes or pallor or diaphoresis. Neurologic patient is alert oriented appropriate with no sign of discoordination. Const Vital Signs: 11/27/22 14:36 Temperature 98.1 F Temperature Source Temporal Pulse Rate 70 Respiratory Rate 15 Blood Pressure 154/81 H Blood Pressure Mean 105 Pulse Ox 99 Oxygen Delivery Method Room Air MDM MDM MDM Narrative Medical decision making narrative: I read viewed the patient's prior charts including CT including CT of the neck and wrist x-rays that showed no acute process. My independent interpretation of today's CT of this brain without contrast shows no acute process. I see no bony injury or bleeding. Final reading by radiology also shows a normal unenhanced CT scan of the brain. Patient was given some IV fluids Compazine and Benadryl. She has slept. The headache is much better. She states it is coming back a little bit but overall better. I think this is likely caused by a combination of trauma with postconcussive syndrome in the face of somebody who has chronic migraines. I think she is okay for discharge. Since she is having some discomfort come back I will treat her here with IV Toradol. She will follow-up with her physician. Radiography Diagnostic Testing: Clinical Impression(s) from Imaging Studies Brain CT 11/27/22 14:54 IMPRESSION: Normal unenhanced CT scan of the brain. Electronically Signed: Alf Johnson MD at 15:20 EST Reading Location ID and State: [address] [place] [address] , Service support , Discharge Plan Triage Chief Complaint: Headache ED Provider: Tod Callejas Dx/Rx/DC Orders Clinical Impression: Post-concussion headache, Headache, migraine, Closed head injury with concussion Instructions: ED Concussion Prescriptions: No Action [id number] 1 mg capsule 1 mg capsule 1 cap PO DAILY (DME) blood sugar diagnostic [Blood Glucose Test] Strip See Rx Instructions .ROUTE .MEDSUPPLY Qty: 10 Rx Instructions: As directed ipratropium bromide 0.03 % spray,non-aerosol 2 spray INTRANASAL BID Rx Instructions: administer into each nostril omega-3 fatty acids [Fish Oil Concentrate] 1,000 mg capsule 1,000 mg PO DAILY gabapentin 100 mg capsule 200 mg PO BID sumatriptan succinate 50 mg tablet 50 mg PO ONCE PRN (Reason: migraine headache) Label Comments: TAKE 1 TABLET BY MOUTH ATCHEADACHE ONSET. MAYDREPEAT AFTER 2 HOURS Trulicity 0.75 mg/0.5 mL pen injector 0.75 mg subcut QWEEK Label Comments: INJECT 1 PENaSUBCUTANEOUSLY ONCE PER WEEK fexofenadine [Allergy Relief (fexofenadine)] 180 mg tablet 180 mg PO DAILY levonorgestrel 17.5 mcg/24 hrs (5 yrs) 19.5 mg intrauterine device 1 device intrauterine ONCE Rx Instructions: as a single dose metronidazole 0.75 % gel 1 applic topical BID omeprazole 20 mg capsule,delayed release(DR/EC) 20 mg PO DAILY PRN Label Comments: Take 1 capsule by mouthndaily before breakfast. 1/2 hr before meal. topiramate 100 mg tablet 100 mg PO BID Label Comments: Take 1 tablet by mouthitwice daily. albuterol sulfate 90 mcg/actuation HFA aerosol inhaler 2 puff INHALATION Q4H PRN (Reason: shortness of breath or wheezing) tizanidine 4 mg tablet 4 mg PO Q8H PRN (Reason: Muscle Spasm) lisinopril 5 MG tablet 5 mg PO DAILY Label Comments: Take 1 tablet by mouth once daily. Primary Care Provider: Zeferino Leon Referrals: Zeferino Leon MD [Primary Care Provider] - 3-5 Days Disposition Disposition: Home, Self Care
[2022-11-27] MEDS: 0.9% Normal Saline 1,000 ML 999 ML IV (15:57)
[2022-11-27] MEDS: DiphenhydrAMINE 50 MG/ML Syringe IV (15:57)
[2022-11-27] MEDS: proCHLORPERazine 10 MG/2 ML Vial IV (15:57)
[2022-11-27] MEDS: Ketorolac 15 MG/ML Vial IV (18:42)
== END 2022-11-27 19:02 | disposition home or self-care (01) ==
PROVIDERS: Emergency Provider Emergency Medicine; PCP Family Medicine; Visit Provider Emergency Medicine
DX: G44.309 Post-traumatic headache, unspecified, not intractable (principal); E11.9 Type 2 diabetes mellitus without complications; Z79.4 Long term (current) use of insulin; S06.0X0A Concussion without loss of consciousness, initial encounter; G43.909 Migraine, unspecified, not intractable, without status migrainosus; F41.9 Anxiety disorder, unspecified; G47.33 Obstructive sleep apnea (adult) (pediatric); Z79.899 Other long term (current) drug therapy
CPT/HCPCS: 70450; 99283; J7030; A4216

== ENCOUNTER 2022-12-03 18:24 | Emergency (ER) | payer OTHER, SELFPAY ==
[2022-12-03 18:25] VITALS: BP 176/91; PULSE 78; RESP 18; TEMP 36.6; O2SAT 98; BMI 43.4
--- NOTE | 2022-12-03 18:56 | EDS_ITS ---
HPI History of Present Illness Chief Complaint: Headache Informant: patient Narrative Narrative: Patient has a history of chronic migraines for which she was on Topamax. 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 She had a CT scan because apparently she had a lapse in her level of consciousness, was negative for any acute, the headache got worse several days later which was this past week, she was sent to the ER for another head scan which was also unremarkable. She states the headaches have persisted. She has photophobia, nausea without vomiting, and within the past hour she has developed gradual onset when she laid down of numbness, tingling, warm sensation in her entire right face including the forehead, she also noticed some tingling in her right arm as well but that went away. The tingling in the face is not as bad as it was but is still there and it feels warm to her. She has had no problems talking but states there is something different about the vision of her right eyes she has a hard time describing it. She has had no vision loss. She states she has had no leg weakness or numbness/tingling but she feels dizzy and off balance. [facility] Medical History (Updated 12/03/22 @ 20:[address] Sam Pearl MD) Acute bronchitis Acute cholecystitis Acute kidney injury Acute respiratory insufficiency Anxiety Calculus of left kidney Dysuria History of obstructive sleep apnea History of stent into kidney Hydronephrosis, left Hydroureter, left Left shoulder pain Left shoulder strain Left upper quadrant abdominal pain Microalbuminuria Migraines Nausea Obstructive Sleep Apnea-Hypopnea Syndrome LETITIA (obstructive sleep apnea) Pain of left scapula Type 2 diabetes mellitus with microalbuminuria Type 2 diabetes mellitus without complication, with long-term current use of insulin Urinary tract infection Home Medications lisinopril 5 mg tablet 5 mg PO DAILY HTN 02/14/19 [History Last Taken 09/23/19] blood sugar diagnostic (Blood Glucose Test strips) #10 ea 04/26/20 [History Last Taken Unknown] [id number] 1 mg capsule 1 cap PO DAILY 04/26/20 [History Last Taken Unknown] ipratropium bromide 21 mcg (0.03 %) nasal spray 2 spray intranasal BID 08/23/20 [History Last Taken Unknown] omega-3 fatty acids 1,000 mg capsule (Fish Oil Concentrate) 1,000 mg PO DAILY 02/21/21 [History Last Taken Unknown] gabapentin 100 mg capsule 200 mg PO BID 01/01/22 [History Last Taken Unknown] albuterol sulfate 90 mcg/actuation aerosol inhaler 2 puff inhalation Q4H PRN shortness of breath or wheezing 08/10/22 [History Last Taken Unknown] dulaglutide 0.75 mg/0.5 mL subcutaneous pen injector (Trulicity) 0.75 mg subcut QWEEK 08/10/22 [History Last Taken Unknown] fexofenadine 180 mg tablet (Allergy Relief (fexofenadine)) 180 mg PO DAILY 08/10/22 [History Last Taken Unknown] levonorgestrel 17.5 mcg/24 hrs (5yrs) 19.5mg intrauterine device 1 device intrauterine ONCE 08/10/22 [History Last Taken Unknown] metronidazole 0.75 % topical gel 1 applic topical BID 08/10/22 [History Last Taken Unknown] sumatriptan succinate 50 mg tablet 50 mg PO ONCE PRN migraine headache 08/10/22 [History Last Taken Unknown] tizanidine 4 mg tablet 4 mg PO Q8H PRN Muscle Spasm 08/10/22 [History Last Taken Unknown] omeprazole 20 mg capsule,delayed release 20 mg PO DAILY PRN 08/16/22 [History Last Taken Unknown] topiramate 100 mg tablet 100 mg PO BID 08/16/22 [History Last Taken Unknown] Allergy/AdvReac Type Severity Reaction Status Date / Time Corticosteroids Allergy Hives Verified 12/03/22 18:35 (Glucocorticoids) [steroids] lidocaine AdvReac Intermediate Hives Verified 12/03/22 18:35 Family History Father Diabetes Myocardial infarction Pancreatic cancer Mother Alcohol abuse Drug abuse Grandfather Diabetes Grandmother Lung cancer Grandmother Heart disease Triple bypass surgery Surgical History H/O: (~2005) History of urethral stent (~2018) Hx laparoscopic cholecystectomy (~2005) Social History Smoking Status: Never smoker alcohol intake: never substance use type: does not use caffeine: Yes Type: coffee what type of physical activity do you participate in: walking frequency: daily seatbelt use: always do you feel safe at home: Yes ROS ROS ED Constitutional Constitutional ED: Denies chills or fever(s) Eyes Eyes: Reports blurry vision and change in vision; Denies diplopia ENT ENT ED: Denies ear pain or sore throat Cardiovascular Cardiovascular: Denies chest pain or palpitations Respiratory/Chest Respiratory/Chest: Denies cough or dyspnea Gastrointestinal Gastrointestinal: Reports nausea; Denies abdominal pain, diarrhea or vomiting Genitourinary Genitourinary ED: Denies dysuria or urinary frequency Musculoskeletal Musculoskeletal: Denies back pain or myalgias Integumentary Denies abscess or rash Neurologic Neurologic: Reports headache(s), paresthesias and vertigo; Denies syncope or weakness EXAM Physical Exam Const Vital Signs: 12/03/22 18:25 Temperature 97.8 F Temperature Source Temporal Pulse Rate 78 Respiratory Rate 18 Blood Pressure 176/91 H Blood Pressure Mean 119 Pulse Ox 98 Oxygen Delivery Method Room Air Positive well nourished, well developed and obese General Appearance ED: well developed and NAD Nutritional Appearance: obese HEENT Reports normocephalic and moist mucous membranes HEENT Narrative: Facial flushing symmetric, no excessive warmth in 1 area versus another, no sinus tenderness, no rashes otherwise atraumatic Eyes PERRL, EOMs intact bilaterally and conjunctivae normal Eyes Narrative: photophobia Neck no lymphadenopathy, supple and no meningeal signs Resp normal respiratory effort and clear to auscultation bilaterally GI non-tender and non-distended Palpation: soft Extremity normal to inspection and full ROM Neuro oriented x3 and CN's II-XII intact bilaterally Neuro Narrative: NIHSS is 1 for subjective decrease sensation in the right face only. No ataxia with normal [id number] and [id number] bilaterally. Sensorium / Orientation: awake and alert Speech: speech normal Gait (Neuro): normal gait Motor Exam: strength 5/5 throughout Psych mental status grossly normal Skin Lesions: no lesions Rashes: no rashes MDM MDM MDM Narrative Medical decision making narrative: Patient wanted to attempt treatment for this prior to undergoing a third CT of the head in a week, which I certainly understand. In doing so we treated her with Toradol, Reglan, Benadryl, and on reevaluation she states all of her symptoms are much better and the tingling is almost completely gone as a result of the medications. Given this I am comfortable allowing her to go home without another CT scan. She already follows with neurology for her migraines, she states her migraines are to the point where she has been considering getting injections of Botox and her occipital neck muscles. At this time I think she is stable to be discharged home and follow-up with her neurologist and she is comfortable with the plan. Discharge Plan Triage Chief Complaint: Headache ED Provider: Sam Pearl Dx/Rx/DC Orders Clinical Impression: Headache, migraine, Paresthesias Instructions: ED, Migraine (Classical) Prescriptions: No Action [id number] 1 mg capsule 1 mg capsule 1 cap PO DAILY (DME) blood sugar diagnostic [Blood Glucose Test] Strip See Rx Instructions .ROUTE .MEDSUPPLY Qty: 10 Rx Instructions: As directed ipratropium bromide 0.03 % spray,non-aerosol 2 spray INTRANASAL BID Rx Instructions: administer into each nostril omega-3 fatty acids [Fish Oil Concentrate] 1,000 mg capsule 1,000 mg PO DAILY gabapentin 100 mg capsule 200 mg PO BID sumatriptan succinate 50 mg tablet 50 mg PO ONCE PRN (Reason: migraine headache) Label Comments: TAKE 1 TABLET BY MOUTH ATCHEADACHE ONSET. MAYDREPEAT AFTER 2 HOURS Trulicity 0.75 mg/0.5 mL pen injector 0.75 mg subcut QWEEK Label Comments: INJECT 1 PENaSUBCUTANEOUSLY ONCE PER WEEK fexofenadine [Allergy Relief (fexofenadine)] 180 mg tablet 180 mg PO DAILY levonorgestrel 17.5 mcg/24 hrs (5 yrs) 19.5 mg intrauterine device 1 device intrauterine ONCE Rx Instructions: as a single dose metronidazole 0.75 % gel 1 applic topical BID omeprazole 20 mg capsule,delayed release(DR/EC) 20 mg PO DAILY PRN Label Comments: Take 1 capsule by mouthndaily before breakfast. 1/2 hr before meal. topiramate 100 mg tablet 100 mg PO BID Label Comments: Take 1 tablet by mouthitwice daily. albuterol sulfate 90 mcg/actuation HFA aerosol inhaler 2 puff INHALATION Q4H PRN (Reason: shortness of breath or wheezing) tizanidine 4 mg tablet 4 mg PO Q8H PRN (Reason: Muscle Spasm) lisinopril 5 MG tablet 5 mg PO DAILY Label Comments: Take 1 tablet by mouth once daily. Primary Care Provider: Zeferino Leon Referrals: Zeferino Leon MD [Primary Care Provider] - (And/or your neurologist) Disposition Disposition: Home, Self Care
[2022-12-03] MEDS: Metoclopramide 10 MG/2 ML Vial IV (19:11)
[2022-12-03] MEDS: Ketorolac 30 MG/ML Syringe IV (19:12)
[2022-12-03] MEDS: DiphenhydrAMINE 50 MG/ML Syringe 25 MG IV (19:12)
[2022-12-03 20:26] VITALS: PULSE 75; RESP 18; O2SAT 96
== END 2022-12-03 20:28 | disposition home or self-care (01) ==
PROVIDERS: Emergency Provider Emergency Medicine; PCP Family Medicine; Visit Provider Emergency Medicine
DX: G43.909 Migraine, unspecified, not intractable, without status migrainosus (principal); E11.9 Type 2 diabetes mellitus without complications; R20.2 Paresthesia of skin
CPT/HCPCS: 99283; J7050; A4216

== ENCOUNTER 2023-01-17 14:30 | Outpatient (RCR) | payer OTHER, SELFPAY | END 2023-01-17 19:00 | disposition home or self-care (01) | LOC: PT 14:30 | PROVIDERS: PCP Family Medicine; Referring Provider Family Medicine; Visit Provider Family Medicine | DX: M75.02 Adhesive capsulitis of left shoulder (principal); G89.29 Other chronic pain; M19.012 Primary osteoarthritis, left shoulder | CPT/HCPCS: 97110 ==

== ENCOUNTER → 2023-02-08 | Outpatient (CLI) | payer OTHER, SELFPAY ==
--- NOTE | 2023-02-08 10:39 | US_ITS ---
INDICATION: SOFT TISSUE MASS EXAMINATION: Ultrasound US Head/Neck Soft Tissue TECHNIQUE: Albert scale and color doppler imaging was performed of the neck. COMPARISON: None. FINDINGS: Limited images obtained in the area of clinical concern left neck. No localized collection or definite mass identified in the region. US/Head/Neck Soft Tissue IMPRESSION: No abnormality identified in the region. Consider CT or MRI if clinically indicated. Electronically Signed: Deisi Brown MD at 4:11 EDT ,
== END | disposition home or self-care (01) ==
LOC: US 10:37
PROVIDERS: PCP Family Medicine; Referring Provider Family Medicine; Visit Provider Family Medicine
DX: M79.89 Other specified soft tissue disorders (principal)
CPT/HCPCS: 76536

== ENCOUNTER → 2023-03-04 | Outpatient (CLI) | payer OTHER, SELFPAY ==
[2023-03-04 07:59] LABS: Absolute Lymphocyte Count 2.34 X10^3/uL (0.83-4.51); Absolute Neutrophil Count 5.6 X10^3/uL (2.0-7.7); Basophil# 0.09 X10^3/uL; Eosinophils% 2.3 % (0-5); Hematocrit 42.4 % (37-47); Hemoglobin 14.1 g/dL (12.0-15.0); Lymphocyte # 2.34 X10^3/ul (0.83-4.51); Lymphocyte % 26.5 % (19-41); Mean Corp Hgb Conc 33.3 g/dL (32-36); Mean Corpuscular Hgb 32.2 pg (27.0-32.0); Mean Corpuscular Volume 96.8 fL (81-99); Mean Platelet Vol. 9.5 fl (6.2-12.0); Monocyte# 0.41 X10^3/uL; Monocyte% 4.6 % (0-10); NRBC Flagged by Analyzer 0 % (0-5); Neutrophil # 5.64 X10^3/uL (2.7-7.7); Neutrophil % 63.9 % (47-70); Platelet Count 214 K/mm3 (150-450); RBC Distribution Width CV 13.3 % (11.6-14.6); RBC Distribution Width SD 48.1 fl (35.1-43.9); Red Blood Count 4.38 M/mm3 (4.2-5.4); White Blood Count 8.8 K/mm3 (4.4-11.0)
[2023-03-04 08:18] LABS: Hemoglobin A1c 6.1 % (3.8-5.6)
[2023-03-04 08:28] LABS: Anion Gap 8 (5-15); BUN 14 mg/dL (7-18); BUN/Creat Ratio 17.1 RATIO (10-20); Calcium,Total 8.4 mg/dL (8.5-10.1); Chloride 109 mmol/L (98-107); Creatinine, Serum 0.82 mg/dL (0.55-1.02); EST Glomerular Filtration Rate 82 mL/min (>60); Est Glom Filt Rate - Afr Amer 99 mL/min (>60); Glucose 142 mg/dL (74-106); Iron 92 ug/dL (50-170); Iron Binding Capacity,Total 323 ug/dL (250-450); Magnesium 1.7 mg/dL (1.6-2.6); PERCENT IRON SATURATION 28.5 % (15.0-55.0); Potassium 3.9 mmol/L (3.5-5.1); Sodium Level 138 mmol/L (136-145)
== END | disposition home or self-care (01) ==
LOC: PAVLAB 07:38
PROVIDERS: PCP Family Medicine; Referring Provider Family Medicine; Visit Provider Family Medicine
DX: M79.10 Myalgia, unspecified site (principal); E11.29 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 kidney complication; Z79.4 Long term (current) use of insulin; R80.9 Proteinuria, unspecified
CPT/HCPCS: 36415; 80048; 82043; 82570; 83036; 83540; 83550; 83735; 85025

== ENCOUNTER → 2023-04-02 | Outpatient (CLI) | payer OTHER, SELFPAY | END | disposition home or self-care (01) | LOC: PSN 08:14 | PROVIDERS: PCP Family Medicine; Referring Provider Physician Assistant Medical; Visit Provider Physician Assistant Medical | DX: R40.4 Transient alteration of awareness (principal) | CPT/HCPCS: 95819 ==

== ENCOUNTER 2023-05-20 21:27 | Emergency (ER) | payer OTHER, SELFPAY ==
[2023-05-20 21:28] VITALS: BP 181/97; PULSE 85; RESP 16; TEMP 36.4; O2SAT 98; BMI 45.4
[2023-05-20] MEDS: Ondansetron ODT 4 MG Tablet 8 MG PO (22:19)
[2023-05-20] MEDS: Ketorolac 30 MG/ML Syringe IM (22:20)
--- NOTE | 2023-05-20 22:28 | EDS_ITS ---
HPI History of Present Illness Chief Complaint: Head Injury Informant: patient Onset/Context/Timing Onset: Hours (1.5) Mechanism/Context: Blunt Injury Narrative Narrative: Patient states she was working at a [employer], it was almost closing time, she was trying to get a heavy tub of butter off of a shelf that was up high over her head and it and another tub both fell and glanced her on the side of the head on the right, and ever since she has been having headache, photophobia, some nausea. No vomiting. No confusion. No peripheral numbness, tingling, weakness or other injury. She states she has a history of a bad concussion and she had postconcussive symptoms/syndrome, and she has persisting concussive symptoms that are now made worse since this injury. [facility] Medical History Abnormal ECG Acute bronchitis Acute cholecystitis Acute kidney injury Acute respiratory insufficiency Anxiety Back pain Calculus of left kidney Degeneration of intervertebral disc of lumbosacral region Disc displacement, lumbar Dyspnea Dysuria Elevated triglycerides with high cholesterol Fatty liver History of obstructive sleep apnea History of stent into kidney Hydronephrosis, left Hydroureter, left Hypertension 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 Left shoulder pain Left shoulder strain Left upper extremity numbness Left upper quadrant abdominal pain Lumbar facet arthropathy Lumbosacral spondylosis Microalbuminuria Migraines Nausea Nephrolithiasis Nonalcoholic hepatosteatosis Obesity Obstructive Sleep Apnea-Hypopnea Syndrome LETITIA (obstructive sleep apnea) Pain of left scapula Prolonged Q-T interval on ECG Pyelonephritis Radiculopathy of lumbosacral region Segmental and somatic dysfunction of cervical region Segmental and somatic dysfunction of lumbar region Segmental and somatic dysfunction of pelvic region Segmental and somatic dysfunction of thoracic region Type 2 diabetes mellitus Type 2 diabetes mellitus with microalbuminuria Type 2 diabetes mellitus without complication, with long-term current use of insulin Urinary tract infection Vertigo Home Medications blood sugar diagnostic (Blood Glucose Test strips) #10 ea 04/26/20 [History Last Taken Unknown] [id number] 1 mg capsule 1 cap PO DAILY 04/26/20 [History Last Taken Unknown] ipratropium bromide 21 mcg (0.03 %) nasal spray 2 spray intranasal BID 08/23/20 [History Last Taken Unknown] omega-3 fatty acids 1,000 mg capsule (Fish Oil Concentrate) 1,000 mg PO DAILY 04/20/21 [History Last Taken Unknown] albuterol sulfate 90 mcg/actuation aerosol inhaler 2 puff inhalation Q4H PRN shortness of breath or wheezing 08/10/22 [History Last Taken Unknown] dulaglutide 0.75 mg/0.5 mL subcutaneous pen injector (Trulicity) 0.75 mg subcut QWEEK 08/10/22 [History Last Taken Unknown] fexofenadine 180 mg tablet (Allergy Relief (fexofenadine)) 180 mg PO DAILY 08/10/22 [History Last Taken Unknown] levonorgestrel 17.5 mcg/24 hrs (5yrs) 19.5mg intrauterine device 1 device intrauterine ONCE 08/10/22 [History Last Taken Unknown] tizanidine 4 mg tablet 4 mg PO Q8H PRN Muscle Spasm 08/10/22 [History Last Taken Unknown] omeprazole 20 mg capsule,delayed release 20 mg PO DAILY PRN 08/16/22 [History Last Taken Unknown] topiramate 100 mg tablet 100 mg PO BID 08/16/22 [History Last Taken Unknown] fluoxetine 20 mg capsule 20 mg PO DAILY 12/28/22 [History Last Taken Unknown] gabapentin 300 mg capsule 300 mg PO TID 12/28/22 [History Last Taken Unknown] lisinopril 10 mg tablet 10 mg PO DAILY 12/28/22 [History Last Taken Unknown] ondansetron HCl 4 mg tablet 4 mg PO Q8H 12/28/22 [History Last Taken Unknown] rizatriptan 10 mg tablet 10 mg PO ONCE 12/28/22 [History Last Taken Unknown] Allergy/AdvReac Type Severity Reaction Status Date / Time Corticosteroids Allergy Hives Verified 04/30/23 09:56 (Glucocorticoids) [steroids] lidocaine AdvReac Intermediate Hives Verified 04/30/23 09:56 Family History Father Diabetes Myocardial infarction Pancreatic cancer Mother Alcohol abuse Drug abuse Grandfather Diabetes Grandmother Lung cancer Grandmother Heart disease Triple bypass surgery Surgical History H/O: (~2005) History of urethral stent (~2018) Hx laparoscopic cholecystectomy (~2005) Social History (Reviewed 04/30/23 @ 09:57 by Tara Pierre Smoking Status: Never smoker alcohol intake: never substance use type: does not use caffeine: Yes Type: coffee what type of physical activity do you participate in: walking frequency: daily seatbelt use: always do you feel safe at home: Yes ROS ROS ED Constitutional Constitutional ED: Denies chills or fever(s) Eyes Eyes: Reports photophobia; Denies blurry vision or change in vision Gastrointestinal Gastrointestinal: Reports nausea; Denies vomiting Musculoskeletal Musculoskeletal: Reports neck pain; Denies back pain Integumentary Denies Abrasions or rash Neurologic Neurologic: Reports headache(s); Denies confusion, paresthesias or weakness EXAM Physical Exam Const Vital Signs: 05/20/23 21:28 05/20/23 21:41 Temperature 97.5 F L Temperature Source Temporal Pulse Rate 85 Respiratory Rate 16 Respiratory Pattern Normal Blood Pressure 181/97 H Blood Pressure Mean 125 Pulse Ox 98 Oxygen Delivery Method Room Air Positive well nourished, well developed and obese General Appearance ED: well developed and NAD Nutritional Appearance: obese HEENT Reports TM's clear and nasal mucous membranes and turbinates normal HEENT Narrative: Tender in the right forehead, the area of the zygomatic arch although the bony arch itself is nontender, and the right lateral neck. No signs of trauma, no hematoma, no crepitance or depression. atraumatic and tenderness Face and Sinus: Negative for facial tenderness Tympanic Membrane ED: Yes TM's clear Eyes PERRL and EOMs intact bilaterally General Eye ED: Yes other Other Details: Mild photophobia Visual Acuity: other Other Details: no entrapment or pain with extraocular movements Neck full ROM and supple General: Negative for tenderness Chest Wall inspection of chest normal and palpation of chest normal Chest: symmetrical chest wall rise; Negative for crepitus or tenderness Resp normal respiratory effort Back/Spine normal ROM Cervical Spine: Negative for cervical spine tenderness Thoracic Spine / Upper Back: Negative for thoracic spinal tenderness Lumbar Spine / Lower Back: Negative for lumbar spinal tenderness Extremity normal to inspection and full ROM General Extremety ED: Negative for tenderness Neuro oriented x3, CN's II-XII intact bilaterally, moves all extremities, no focal motor deficits and no sensory deficits noted Neuro Narrative: Mentating normally. Normal speech. Can name and remember objects. Roberta Coma Scale: document GCS findings Spontaneous Obeys Commands Oriented 15 Sensorium / Orientation: awake and alert Psych mental status grossly normal and thought process normal Skin no wounds Lesions: no lesions Rashes: no rashes MDM MDM MDM Narrative Medical decision making narrative: Patient reassured she meets multiple criteria to not need advanced imaging of her brain at this time. I can tell her with high degree of certainty that she does not have a skull fracture or intracranial hemorrhage. This is likely an exacerbation of her previous postconcussive syndrome, supportive care advised and follow-up, given work restrictions temporarily. NEXUS Head CT Instrument from [employer] on 05/20/2023 All calculations should be rechecked by clinician prior to use RESULT SUMMARY: Low risk of significant intracranial injuries CT not necessary INPUTS: Evidence of significant skull fracture ?> 0 = No Scalp hematoma ?> 0 = No Neurologic deficit ?> 0 = No Altered level of alertness ?> 0 = No Abnormal behavior ?> 0 = No Coagulopathy ?> 0 = No Persistent vomiting ?> 0 = No Age >=5 years ?> 0 = No [place] CT Head Injury/Trauma Rule from [employer] on 05/20/2023 All calculations should be rechecked by clinician prior to use RESULT SUMMARY: CT Unnecessary The [place] Head CT Rule suggests a head CT is not necessary for this patient (sensitivity 83-100% for all intracranial traumatic findings, sensitivity 100% for findings requiring neurosurgical intervention). INPUTS: Age ?> 0 = No Patient on blood thinners ?> 0 = No Seizure after injury ?> 0 = No GCS ?> 0 = No Suspected open or depressed skull fracture ?> 0 = No Any sign of basilar skull fracture? ?> 0 = No >= episodes of vomiting ?> 0 = No Age >=5 years ?> 0 = No Retrograde amnesia to the event >=30 minutes ?> 0 = No ?Dangerous? mechanism? ?> 0 = No Discharge Plan Triage Chief Complaint: Head Injury ED Provider: Sam Pearl Dx/Rx/DC Orders Clinical Impression: Closed head injury without loss of consciousness Instructions: ED Concussion Prescriptions: No Action [id number] 1 mg capsule 1 mg capsule 1 cap PO DAILY (DME) blood sugar diagnostic [Blood Glucose Test] Strip See Rx Instructions .ROUTE .MEDSUPPLY Qty: 10 Rx Instructions: As directed ipratropium bromide 0.03 % spray,non-aerosol 2 spray INTRANASAL BID Rx Instructions: administer into each nostril omega-3 fatty acids [Fish Oil Concentrate] 1,000 mg capsule 1,000 mg PO DAILY Trulicity 0.75 mg/0.5 mL pen injector 0.75 mg subcut QWEEK Patient Comments: INJECT 1 PENaSUBCUTANEOUSLY ONCE PER WEEK fexofenadine [Allergy Relief (fexofenadine)] 180 mg tablet 180 mg PO DAILY levonorgestrel 17.5 mcg/24 hrs (5 yrs) 19.5 mg intrauterine device 1 device intrauterine ONCE Rx Instructions: as a single dose omeprazole 20 mg capsule,delayed release(DR/EC) 20 mg PO DAILY PRN Patient Comments: Take 1 capsule by mouthndaily before breakfast. 1/2 hr before meal. topiramate 100 mg tablet 100 mg PO BID Patient Comments: Take 1 tablet by mouthitwice daily. gabapentin 300 mg capsule 300 mg PO TID Patient Comments: TAKE 1 CAP 3 TIMES DAILY.CIF AFTER 2 DAYS SYMPTOMS PERSIST, INCREASE TO 2 CAPS AT BEDTIME lisinopril 10 mg tablet 10 mg PO DAILY Patient Comments: Take 1 tablet by mouthEonce daily. rizatriptan 10 mg tablet 10 mg PO ONCE Patient Comments: Take 1 tablet by mouth astneeded (at onset ofdheadache. May repeatfafter 2 hours.). Do not exceed 30 mg per day. ondansetron HCl 4 mg tablet 4 mg PO Q8H Patient Comments: TAKE 1 TABLET BY MOUTHEEVERY 8 HOURS NEEDED FOR NAUSEA OR VOMITING fluoxetine 20 mg capsule 20 mg PO DAILY Patient Comments: Take 1 capsule by mouthConce daily. albuterol sulfate 90 mcg/actuation HFA aerosol inhaler 2 puff INHALATION Q4H PRN (Reason: shortness of breath or wheezing) tizanidine 4 mg tablet 4 mg PO Q8H PRN (Reason: Muscle Spasm) Stand Alone Forms: ED Work / School Excuse, Work Status Form Primary Care Provider: Zeferino Leon Referrals: [facility] [Group of Physicians] - 3-5 Days if not improving Zeferino Leon MD [Primary Care Provider] - 3-5 Days if not improving Disposition Disposition: Home, Self Care
[2023-05-20 22:47] VITALS: BP 134/88; PULSE 78; RESP 18; O2SAT 100
== END 2023-05-20 22:51 | disposition home or self-care (01) ==
LOC: ED 22:48
PROVIDERS: Emergency Provider Emergency Medicine; PCP Family Medicine; Visit Provider Emergency Medicine
DX: S09.90XA Unspecified injury of head, initial encounter (principal); E11.9 Type 2 diabetes mellitus without complications; Z79.4 Long term (current) use of insulin; Z79.899 Other long term (current) drug therapy; Z79.85 Long-term (current) use of injectable non-insulin antidiabetic drugs; G43.909 Migraine, unspecified, not intractable, without status migrainosus; Z90.49 Acquired absence of other specified parts of digestive tract; W22.8XXA Striking against or struck by other objects, initial encounter; Y92.511 Restaurant or cafe as the place of occurrence of the external cause
CPT/HCPCS: 96372; 99283

== ENCOUNTER 2023-07-18 09:30 | Outpatient (RCR) | payer OTHER, SELFPAY | END 2023-07-18 19:00 | disposition home or self-care (01) | LOC: PT 09:30 | PROVIDERS: PCP Family Medicine; Referring Provider Nurse Practitioner; Visit Provider Nurse Practitioner | DX: M75.02 Adhesive capsulitis of left shoulder (principal); G89.29 Other chronic pain; M19.012 Primary osteoarthritis, left shoulder ==

== ENCOUNTER 2023-08-01 09:24 | Outpatient (RCR) | payer OTHER, SELFPAY | END 2023-08-01 19:00 | disposition home or self-care (01) | LOC: PT 09:24 | DX: M25.512 Pain in left shoulder (principal); G89.29 Other chronic pain; M75.02 Adhesive capsulitis of left shoulder; M19.012 Primary osteoarthritis, left shoulder ==

== ENCOUNTER 2023-08-05 09:38 | Observation (INO) | payer OTHER, SELFPAY ==
[2023-08-05] VITALS (11 sets, daily range): BP systolic 120–156; BP diastolic 59–97; PULSE 58–70; RESP 14–19; TEMP 36.3–36.7; O2SAT 96–100; BMI 47.2
--- NOTE | 2023-08-05 11:02 | CT_ITS ---
STUDY: CT HEAD STROKE PROTOCOL W/O CONTRAST INJECTION REASON FOR EXAM: Female, 43 years old. Neuro deficit, acute, stroke suspected RADIATION DOSAGE (If Supplied By Facility): CTDIvol = ( 44.99 ) mGy, DLP = ( 812.98 ) mGycm TECHNIQUE: Transaxial CT imaging of the brain was performed without administration of intravenous contrast material. Individualized dose optimization techniques were used for this CT. COMPARISON: Comparison is made with prior study dated November 27, 2022. FINDINGS: Normal soft tissue structures. Normal calvarium. Normal size ventricles and extra-axial spaces for the patient''s age. Normal white matter tracts of the cerebral hemispheres. Normal basal ganglia and thalami. Normal brainstem. Normal cerebellum. There is no intracranial hemorrhage. There are no findings of an acute ischemic infarction. Normal visualized paranasal sinuses. ASPECT score 10: CT/STROKE Brain/Head without Cont IMPRESSION: Normal unenhanced CT scan of the brain. N.B. : The above Results were Read Back by Emiliano Gonzalez MD to Niurka Kendall and understanding confirmed on 08/05/2023 11:16:18 (ET). Electronically Signed: Emiliano Gonzalez MD at 11:19 EDT ,
--- NOTE | 2023-08-05 11:02 | EKG12_ITS ---
Test Reason : STROKE TEAM Blood Pressure : / mmHG Vent. Rate : 064 BPM Atrial Rate : 064 BPM P-R Int : 162 ms QRS Dur : 090 ms QT Int : 470 ms P-R-T Axes : 013 003 003 degrees QTc Int : 484 ms Normal sinus rhythm Low voltage QRS Borderline ECG Confirmed by ANASTASIYA SHEARER, DALLIN ([id number]), film editor CRISTIANO MYERS ([id number]) on 08/09/2023 2:31:08 PM Referred By: Confirmed By:DALLIN LANGFORD MD
--- NOTE | 2023-08-05 11:02 | RAD_ITS ---
STUDY: X-RAY CHEST REASON FOR EXAM: Female, 43 years old. Neuro deficit, acute, stroke suspected -- -- PT STATES FEELS DIZZY STARTING THIS AM. STATES HER FACE HURTS. PT DENIES HEADACHE. STATES TOOK MIGRAINE MEDICATION IN CASE IT WAS A MIGRAINE TECHNIQUE: Single AP portable view of the chest. COMPARISON: Comparison is made with prior study dated May 04, 2022. FINDINGS: EKG electrodes are seen. The lungs are clear and expanded. There is no demonstrated pleural abnormality. Normal size heart. Normal mediastinum and osman. Normal visualized pulmonary arteries. Normal visualized aortic arch and descending thoracic aorta. There are degenerative changes of the visualized thoracic spine. Normal visualized ribs, clavicles, and shoulders. There is no demonstrated abnormality of the visualized soft tissue structures of the upper abdomen. RAD/Chest 1 View IMPRESSION: No acute abnormality is seen. Electronically Signed: Emiliano Gonzalez MD at 12:55 EDT ,
--- NOTE | 2023-08-05 11:02 | NURSING ---
STROKE ALERT CALLED
--- NOTE | 2023-08-05 11:03 | CT_ITS ---
STUDY: CTA HEAD AND NECK WITH CONTRAST REASON FOR EXAM: Female, 43 years old. Neuro deficit, acute, stroke suspected RADIATION DOSAGE (If Supplied By Facility): CTDIvol = ( 20.98 ) mGy, DLP = ( 821.54 ) mGycm TECHNIQUE: CT angiography was performed with a multi-detector CT scanner. Data acquisition was obtained from the skull base through the vertex following intravenous administration of IV 100mL [id number]-[id number]. MIP images were reconstructed from the axial data set. Post-processing of the angiographic images was performed, with multiplanar reformation and 3D reconstruction. Individualized dose optimization techniques were used for this CT. COMPARISON: No relevant priors. FINDINGS: Normal bilateral petrous carotid arteries. Normal right cavernous carotid artery with a normal supraclinoid bifurcation. There is minimal calcified plaque formation of the left cavernous carotid artery, without a cross-sectional luminal stenosis. Normal right A1 segments of the anterior cerebral artery. Normal left A1 segments of the anterior cerebral artery. Normal intact anterior communicating artery (ACOM). Normal bilateral A2 segments of the anterior cerebral arteries. Normal right M1 and M2 segments of the middle cerebral arteries, with a normal M1 bifurcation. Normal left M1 and M2 segments of the middle cerebral arteries, with a normal M1 bifurcation. Normal right posterior communicating artery (PCOM). Normal left posterior communicating artery (PCOM). Normal bilateral vertebral arteries. Normal basilar artery with a normal basilar bifurcation. The visualized bilateral superior cerebellar (SCA) arteries are normal. Normal bilateral P1, P2 and visualized P3 segments of the posterior cerebral arteries. There is no demonstrated aneurysm of the [place]. There is no demonstrated abnormality of the visualized brain. AORTIC ARCH: Normal visualized aortic arch. Normal origins of the brachiocephalic, left common carotid, and left subclavian arteries. RIGHT CAROTID ARTERIES: Normal right common carotid artery (CCA). Normal right common carotid bulb. Normal origin of the right internal carotid (ICA) artery without a hemodynamically significant stenosis. Normal visualized cervical portion of the right internal carotid artery. Normal origin of the right external carotid artery (ECA). LEFT CAROTID ARTERIES: Normal left common carotid artery (CCA). Normal left common carotid bulb. Normal origin of the left internal carotid (ICA) artery without a hemodynamically significant stenosis. Normal visualized cervical portion of the left internal carotid artery. Normal origin of the left external carotid artery (ECA). VERTEBRAL ARTERIES: Normal bilateral vertebral arteries. CT/STROKE CTA Head AND Neck W/Con IMPRESSION: Normal CTA Head and neck with contrast. N.B. : The above Results were Read Back by Emiliano Gonzalez MD to Dr Enoch DO, and understanding confirmed on 08/05/2023 11:26:31 (ET). Electronically Signed: Emiliano Gonzalez MD at 11:25 EDT ,
--- NOTE | 2023-08-05 11:04 | NURSING ---
FACESHEET FAXED TO [facility]
--- NOTE | 2023-08-05 11:07 | EX.ED.DYSGE1 ---
HPI History of Present Illness Chief Complaint: Dizziness Informant: patient Narrative Narrative: 3-year-old female with history of diabetes mellitus, migraines, obstructive sleep apnea, vertigo, GERD, hypertension and prolonged QT on EKG presenting for not feeling right. Patient states that she woke up this morning and ready for work. States he felt a little off but not too bad. This was around 6 AM. She got to work she started feel dizzy and lightheaded. She notes she was having what she describes as a numbness and the pain to the left side of her face. She thought maybe she was getting a migraine and did take her migraine medicine. She thought maybe her blood sugar was low and took a break at work and ate. She stood up again and felt lightheaded. She initially says she feels dizzy but it does not feel like vertigo and feels more like her blood is rushing to her feet. Since laying in the bed she notes she did start to feel little nauseous, had some right-sided chest pain and is having tingling on her left leg and left arm. She denies any fever or chills. She denies any new nasal congestion, sore throat, cough or chest congestion. She denies any vision changes. Denies any swelling of her legs. States she chronically has urinary frequency secondary to just drinking a lot of water and her diabetes. She notes her last A1c was 6.2 and that was 4 months ago. She feels like her diabetes is well controlled. She had bronchitis 3 weeks ago. 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 Left shoulder pain Left shoulder strain Left upper extremity numbness Left upper quadrant abdominal pain Lumbar facet arthropathy Lumbosacral spondylosis Microalbuminuria Migraines Nausea Nephrolithiasis Nonalcoholic hepatosteatosis Obesity Obstructive Sleep Apnea-Hypopnea Syndrome LETITIA (obstructive sleep apnea) Pain of left scapula Prolonged Q-T interval on ECG Pyelonephritis Radiculopathy of lumbosacral region Segmental and somatic dysfunction of cervical region Segmental and somatic dysfunction of lumbar region Segmental and somatic dysfunction of pelvic region Segmental and somatic dysfunction of thoracic region Type 2 diabetes mellitus Type 2 diabetes mellitus with microalbuminuria Type 2 diabetes mellitus without complication, with long-term current use of insulin Urinary tract infection Vertigo Home Medications blood sugar diagnostic (Blood Glucose Test strips) #10 ea 04/26/20 [History Last Taken Unknown] ipratropium bromide 21 mcg (0.03 %) nasal spray 2 spray intranasal BID 08/23/20 [History Last Taken 08/03/23] omega-3 fatty acids 1,000 mg capsule (Fish Oil Concentrate) 1,000 mg PO DAILY 02/21/21 [History Last Taken 08/05/23] albuterol sulfate 90 mcg/actuation aerosol inhaler 2 puff inhalation Q4H PRN shortness of breath or wheezing 08/10/22 [History Last Taken 08/03/23] dulaglutide 0.75 mg/0.5 mL subcutaneous pen injector (Trulicity) 0.75 mg subcut QWEEK 08/10/22 [History Last Taken 07/29/23] fexofenadine 180 mg tablet (Allergy Relief (fexofenadine)) 180 mg PO DAILY 08/10/22 [History Last Taken 08/05/23] levonorgestrel 17.5 mcg/24 hrs (5yrs) 19.5mg intrauterine device 1 device intrauterine ONCE 08/10/22 [History Last Taken Unknown] tizanidine 4 mg tablet 4 mg PO Q8H PRN Muscle Spasm 08/10/22 [History Last Taken 08/04/23] omeprazole 20 mg capsule,delayed release 20 mg PO DAILY PRN gerd 08/16/22 [History Last Taken Unknown] topiramate 100 mg tablet 100 mg PO BID 08/16/22 [History Last Taken 08/05/23] fluoxetine 20 mg capsule 20 mg PO DAILY 12/28/22 [History Last Taken 08/04/23] gabapentin 300 mg capsule 300 mg PO BID 12/28/22 [History Last Taken 08/05/23] lisinopril 10 mg tablet 10 mg PO DAILY 12/28/22 [History Last Taken 08/05/23] ondansetron HCl 4 mg tablet 4 mg PO Q8H 12/28/22 [History Last Taken Unknown] rizatriptan 10 mg tablet 10 mg PO ONCE 12/28/22 [History Last Taken 08/05/23] Allergy/AdvReac Type Severity Reaction Status Date / Time Corticosteroids Allergy Hives Verified 08/05/23 09:42 (Glucocorticoids) [steroids] lidocaine AdvReac Intermediate Hives Verified 08/05/23 09:42 Family History Father Diabetes Myocardial infarction Pancreatic cancer Mother Alcohol abuse Drug abuse Grandfather Diabetes Grandmother Lung cancer Grandmother Heart disease Triple bypass surgery Surgical History H/O: (~2005) History of urethral stent (~2018) Hx laparoscopic cholecystectomy (~2005) Social History Smoking Status: Never smoker alcohol intake: never substance use type: does not use caffeine: Yes Type: coffee what type of physical activity do you participate in: walking frequency: daily seatbelt use: always do you feel safe at home: Yes ROS ROS ED Constitutional Constitutional ED: Denies chills or fever(s) Eyes Eyes: Denies blurry vision, change in vision or diplopia ENT ENT ED: Denies ear pain, rhinorrhea or sore throat Cardiovascular Cardiovascular: Reports chest pain; Denies palpitations Respiratory/Chest Respiratory/Chest: Denies cough, dyspnea or dyspnea on exertion Gastrointestinal Gastrointestinal: Reports nausea; Denies abdominal pain, diarrhea or vomiting Genitourinary Genitourinary ED: Reports urinary frequency; Denies dysuria Musculoskeletal Musculoskeletal: Denies arthralgias or myalgias Integumentary Denies rash Neurologic Neurologic: Reports headache(s) and paresthesias LUE and LLE; Denies weakness Psychiatric Psychiatric: Denies anxiety or depression EXAM Physical Exam Const Vital Signs: 08/05/23 09:40 08/05/23 11:06 08/05/23 11:09 Temperature 98 F Temperature Source Temporal Pulse Rate 66 Respiratory Rate 16 Blood Pressure 146/83 H 146/90 H Blood Pressure Mean 104 108 Pulse Ox 100 Oxygen Delivery Method Room Air Room Air 08/05/23 11:16 08/05/23 11:32 08/05/23 12:02 Temperature Temperature Source Pulse Rate 70 65 62 Respiratory Rate 19 H 18 Blood Pressure 145/90 H 137/81 H 142/81 H Blood Pressure Mean 108 99 101 Pulse Ox 99 98 99 Oxygen Delivery Method Room Air Room Air Room Air Positive well nourished and well developed General Appearance ED: well developed and NAD HEENT Reports TM's clear and moist mucous membranes Tympanic Membrane ED: Yes TM's clear Eyes PERRL and EOMs intact bilaterally Eyes Narrative: No nystagmus on exam, no visual field cut Neck supple and no JVD Chest Wall inspection of chest normal and palpation of chest normal Resp normal respiratory effort and clear to auscultation bilaterally Cardio regular rate, regular rhythm and no murmurs GI normal to inspection, nondistended, normoactive bowel sounds and non-tender Extremity normal to inspection General Extremety ED: Negative for edema or tenderness General Extremity: Negative for edema Neuro oriented x3 and CN's II-XII intact bilaterally Neuro Narrative: Subjective paresthesias to the left face, left upper extremity and left lower extremity. NIH equals 1 for paresthesias. Sensorium / Orientation: alert Motor Exam: Negative for general weakness Psych mental status grossly normal Skin no rashes or lesions noted MDM MDM MDM Narrative Medical decision making narrative: Mike is evaluated for vague sensation of not feeling right. Initially she only reported migraine headache to her face. On neuro exam patient is found to have subjective paresthesias to the left side. Because involves her face, arm and leg differential does include stroke. She is within 24 hours however she would not be a tPA candidate at this time. Stroke alert is called. Patient also has risk factors include hypertension, obesity and sleep apnea. Work-up large unremarkable and CT of the brain does not show any acute process. She is evaluated by teleneurology who agrees that there could be an underlying stomach stroke and recommends admission for MRI. Verbal this plan of care. She is given aspirin in the ER. She has continued complaint of headache and is given a migraine cocktail consisting of Toradol, Reglan and Benadryl for her symptoms. 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 At this time she is not any fever, leukocytosis or signs of meningitis. Low suspicion for infectious etiology. Cardiac work-up largely normal. Lab Data Attestation: I reviewed the patient's lab results. Labs: Laboratory Results - last 24 hr 08/05/23 08/05/23 08/05/23 10:00 11:15 11:16 WBC 7.8 RBC 4.04 L Hgb 12.9 Hct 39.5 MCV 97.8 MCH 31.9 MCHC 32.7 RDW Std Deviation 47.0 H RDW Coeff of Itzel 13.1 Plt Count 190 MPV 9.7 Immature Gran % (Auto) 1.300 H Neut % (Auto) 59.9 Lymph % (Auto) 30.1 [place] % (Auto) 5.2 Eos % (Auto) 2.6 Baso % (Auto) 0.9 Absolute Neuts (auto) 4.7 Absolute Lymphs (auto) 2.33 Nucleated RBC % 0 PT 14.4 INR 1.1 APTT 32.7 Sodium 140 Potassium 3.7 Chloride 110 H Carbon Dioxide 24.0 Anion Gap 6 BUN 15 Creatinine 0.72 Estim Creat Clear Calc 99.99 Est GFR (MDRD) Af Amer 115 Est GFR (MDRD) Non-Af 95 BUN/Creatinine Ratio 20.8 H Glucose 108 H Hemoglobin A1c 6.6 H Calcium 8.5 Troponin I High Sens 4 TSH 1.54 POC Glucose 120 H Radiography Chest X-Ray - ED: 1 View, Read by ED Physician, Read by Radiologist and No Acute Disease Diagnostic Testing: Clinical Impression(s) from Imaging Studies Brain CT 08/05/23 11:02 IMPRESSION: Normal unenhanced CT scan of the brain. N.B. : The above Results were Read Back by Emiliano Gonzalez MD to Niurka Kendall and understanding confirmed on 08/05/2023 11:16:18 (ET). Electronically Signed: Emiliano Gonzalez MD at 11:19 EDT , ADDENDUM: 08/05/23 1126 IMPRESSION: Normal unenhanced CT scan of the brain. N.B. : The above Results were Read Back by Emiliano Gonzalez MD to Niurka Kendall and understanding confirmed on 08/05/2023 11:16:18 (ET). Electronically Signed: Emiliano Gonzalez MD at 11:19 EDT , Chest X-Ray 08/05/23 11:02 IMPRESSION: No acute abnormality is seen. Electronically Signed: Emiliano Gonzalez MD at 12:55 EDT , Head/Neck CTA 08/05/23 11:03 IMPRESSION: Normal CTA Head and neck with contrast. N.B. : The above Results were Read Back by Emiliano Gonzalez MD to Dr Enoch DO, and understanding confirmed on 08/05/2023 11:26:31 (ET). Electronically Signed: Emiliano Gonzalez MD at 11:25 EDT , Rhythm Strip Rhythm Strip: Sinus Rhythm Rate: 64 Ectopy: None EKG Initial EKG: Attestation: I personally reviewed and interpreted this EKG as follows: Interpretation: Sinus Rhythm Comments: Patient is a rate of 64 bpm Normal axis Normal intervals Low voltage QRS Normal ST segments Management Discussion w/another healthcare provider: Hospitalist, Truck Dock Material Mover and Radiologist Discharge Plan Dx/Rx/DC Orders Clinical Impression: Facial paresthesia, Left leg paresthesias, Arm paresthesia, left, Hypertension Disposition Disposition: Acute Care Hospital [facility] Discharge Date/Time: 08/05/23 13:12
[2023-08-05] MEDS: 0.9% Normal Saline (1000mL) 1,000 ML 999 ML IV (11:19)
[2023-08-05 11:21] LABS: Absolute Lymphocyte Count 2.33 X10^3/uL (0.83-4.51); Absolute Neutrophil Count 4.7 X10^3/uL (2.0-7.7); Basophil# 0.07 X10^3/uL; Basophil% 0.9 % (0-1); Eosinophils% 2.6 % (0-5); Hematocrit 39.5 % (37-47); Hemoglobin 12.9 g/dL (12.0-15.0); Lymphocyte # 2.33 X10^3/ul (0.83-4.51); Lymphocyte % 30.1 % (19-41); Mean Corp Hgb Conc 32.7 g/dL (32-36); Mean Corpuscular Hgb 31.9 pg (27.0-32.0); Mean Corpuscular Volume 97.8 fL (81-99); Mean Platelet Vol. 9.7 fl (6.2-12.0); Monocyte% 5.2 % (0-10); NRBC Flagged by Analyzer 0 % (0-5); Neutrophil # 4.65 X10^3/uL (2.7-7.7); Neutrophil % 59.9 % (47-70); Platelet Count 190 K/mm3 (150-450); RBC Distribution Width CV 13.1 % (11.6-14.6); Red Blood Count 4.04 M/mm3 (4.2-5.4); White Blood Count 7.8 K/mm3 (4.4-11.0)
[2023-08-05 11:35] LABS: Bedside Glucose 120 mg/dL (74-106)
[2023-08-05 11:36] LABS: Anion Gap 6 (5-15); BUN 15 mg/dL (7-18); BUN/Creat Ratio 20.8 RATIO (10-20); Calcium,Total 8.5 mg/dL (8.5-10.1); Chloride 110 mmol/L (98-107); Creatinine, Serum 0.72 mg/dL (0.55-1.02); EST Glomerular Filtration Rate 95 mL/min (>60); Est Glom Filt Rate - Afr Amer 115 mL/min (>60); Estimated Creatinine Clearance 99.99 ml/min; Glucose 108 mg/dL (74-106); Potassium 3.7 mmol/L (3.5-5.1); Sodium Level 140 mmol/L (136-145); Thyroid Stim Hormone (TSH) 1.54 uIU/mL (0.358-3.74); Troponin-I HS 4 pg/mL (3.0-54.0)
--- NOTE | 2023-08-05 11:42 | CHAPLAIN ---
Type of Pastoral Visit ___ Initial Visit ___ Follow-up Visit ___ On-call Visit ___ General Patient Visit ___ Spiritual Assessment ___ Family Conference ___ Bereavement _x__ Rapid Response ___ Code Blue ___ Other (describe below) Pastoral Care Referral From ___ Patient ___ Family ___ Nurse ___ Physician ___ Data Processing Operator ___ Corner Trimmer Operator _x__ Other (describe below) Sacrament/Intervention ___ Active listening ___ Anointing ___ Yazdanism ___ Bereavement ___ Communion ___ Beata exploration ___ ___ Life review _x__ Prayer ___ Reconciliation ___ Sacrament of Sick ___ Supportive presence ___ Wedding ___ Other (describe below) Pastoral Comments responded to stroke alert; 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
[2023-08-05 11:43] LABS: International Normalized Ratio 1.1; Prothrombin Time (Protime)PT. 14.4 SECONDS (11.7-14.9)
[2023-08-05 11:44] LABS: Partial Thromboplast Time 32.7 Seconds (24.1-36.2)
--- NOTE | 2023-08-05 12:05 | HP.PCM_ITS ---
HPI - General General Date of Admission: 08/05/23 Date of Service: 08/05/23 Chief Complaint: dizziness HPI Narrative TORI GARCIA, is a 43 F with an extensive PMH as outlined including diabetes mellitus, migraines, LETITIA, vertigo and GERD who presents via the ED on 08/05/2023 with a complaint of dizziness. She says she woke up this morning and was getting ready to go home, but started feeling lightheaded and dizzy. She also noted numbness and pain on the left abbe of her face. She denied any weakness, chest pain, palpitations, dizziness or any other symptoms. She denied any slurred speech or any blurred vision; she did admit to urinary symptoms but said it was because she tried a lot of water. She said she felt her diabetes was well controlled with her last A1c was 6.2. Review of systems otherwise negative. Vitals in the ED temp of 97.4F, NV of 58, BP of 156/76 and RR of 14. She was saturating at 96% on room air. EKG showed no acute ST changes. CT of the brain showed no acute ST changes. She is being admitted to be managed for stroke like symptoms. [facility] Medical History Abnormal ECG Acute bronchitis Acute cholecystitis Acute kidney injury Acute respiratory insufficiency Anxiety Back pain Calculus of left kidney Degeneration of intervertebral disc of lumbosacral region Disc displacement, lumbar Dyspnea Dysuria Elevated triglycerides with high cholesterol Fatty liver History of obstructive sleep apnea History of stent into kidney Hydronephrosis, left Hydroureter, left Hypertension 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 Left shoulder pain Left shoulder strain Left upper extremity numbness Left upper quadrant abdominal pain Lumbar facet arthropathy Lumbosacral spondylosis Microalbuminuria Migraines Nausea Nephrolithiasis Nonalcoholic hepatosteatosis Obesity Obstructive Sleep Apnea-Hypopnea Syndrome LETITIA (obstructive sleep apnea) Pain of left scapula Prolonged Q-T interval on ECG Pyelonephritis Radiculopathy of lumbosacral region Segmental and somatic dysfunction of cervical region Segmental and somatic dysfunction of lumbar region Segmental and somatic dysfunction of pelvic region Segmental and somatic dysfunction of thoracic region Type 2 diabetes mellitus Type 2 diabetes mellitus with microalbuminuria Type 2 diabetes mellitus without complication, with long-term current use of insulin Urinary tract infection Vertigo Home Medications blood sugar diagnostic (Blood Glucose Test strips) #10 ea 04/26/20 [History Last Taken Unknown] ipratropium bromide 21 mcg (0.03 %) nasal spray 2 spray intranasal BID 08/23/20 [History Last Taken 08/03/23] omega-3 fatty acids 1,000 mg capsule (Fish Oil Concentrate) 1,000 mg PO DAILY 0 02/21/21 [History Last Taken 08/05/23] albuterol sulfate 90 mcg/actuation aerosol inhaler 2 puff inhalation Q4H PRN shortness of breath or wheezing 08/10/22 [History Last Taken 08/03/23] dulaglutide 0.75 mg/0.5 mL subcutaneous pen injector (Trulicity) 0.75 mg subcut QWEEK 08/10/22 [History Last Taken 07/29/23] fexofenadine 180 mg tablet (Allergy Relief (fexofenadine)) 180 mg PO DAILY 08/10/22 [History Last Taken 08/05/23] levonorgestrel 17.5 mcg/24 hrs (5yrs) 19.5mg intrauterine device 1 device i ntrauterine ONCE 08/10/22 [History Last Taken Unknown] tizanidine 4 mg tablet 4 mg PO Q8H PRN Muscle Spasm 08/10/22 [History Last Taken 08/04/23] omeprazole 20 mg capsule,delayed release 20 mg PO DAILY PRN gerd 08/16/22 [History Last Taken Unknown] topiramate 100 mg tablet 100 mg PO BID 08/16/22 [History Last Taken 08/05/23] fluoxetine 20 mg capsule 20 mg PO DAILY 12/28/22 [History Last Taken 08/04/23] gabapentin 300 mg capsule 300 mg PO BID 12/28/22 [History Last Taken 08/05/23] lisinopril 10 mg tablet 10 mg PO DAILY 12/28/22 [History Last Taken 08/05/23] ondansetron HCl 4 mg tablet 4 mg PO Q8H 12/28/22 [History Last Taken Unknown] rizatriptan 10 mg tablet 10 mg PO ONCE 12/28/22 [History Last Taken 08/05/23] Allergy/AdvReac Type Severity Reaction Status Date / Time Corticosteroids Allergy Hives Verified 08/05/23 09:42 (Glucocorticoids) [steroids] lidocaine AdvReac Intermediate Hives Verified 08/05/23 09:42 Family History Father Diabetes Myocardial infarction Pancreatic cancer Mother Alcohol abuse Drug abuse Grandfather Diabetes Grandmother Lung cancer Grandmother Heart disease Triple bypass surgery Surgical History H/O: (~2005) History of urethral stent (~2018) Hx laparoscopic cholecystectomy (~2005) Social History Smoking Status: Never smoker alcohol intake: never substance use type: does not use caffeine: Yes Type: coffee what type of physical activity do you participate in: walking frequency: daily seatbelt use: always do you feel safe at home: Yes ROS Constitutional Constitutional: Reports weakness; Denies anorexia, chills, fatigue, fever(s) or malaise Eyes Eyes: Denies change in vision ENT HEENT: Denies dysphagia Cardiovascular Cardiovascular: Denies chest pain, edema, orthopnea, palpitations, paroxysmal nocturnal dyspnea or syncope Respiratory/Chest Respiratory/Chest: Denies cough, shortness of breath at rest or shortness of breath with exertion Gastrointestinal Gastrointestinal: Denies abdominal pain or diarrhea Musculoskeletal Musculoskeletal: Denies extremity pain, muscle weakness or neck pain Neurologic Neurologic: Denies confusion, dizziness, focal weakness, headache(s), lack of coordination, seizures or weakness Psychiatric Psychiatric: Denies anxiety Vital Signs Vital Signs Vital Signs: 08/05/23 09:40 08/05/23 11:06 08/05/23 11:09 Temperature 98 F Temperature Source Temporal Pulse Rate 66 Respiratory Rate 16 Blood Pressure 146/83 H 146/90 H Blood Pressure Mean 104 108 Pulse Ox 100 Oxygen Delivery Method Room Air Room Air 08/05/23 11:16 08/05/23 11:32 Temperature Temperature Source Pulse Rate 70 65 Respiratory Rate 19 H 18 Blood Pressure 145/90 H 137/81 H Blood Pressure Mean 108 99 Pulse Ox 99 98 Oxygen Delivery Method Room Air Room Air Weight Weight: 301 lb 9.478 oz Body Mass Index (BMI) 47.2 Physical Exam Const alert, oriented x3 and no apparent distress Constitutional Narrative: obese General Appearance: cooperative HEENT normocephalic, head/scalp atraumatic and moist oral mucous membranes Mouth: dry mucous membranes Eyes PERRL and EOMs intact bilaterally Neck supple Lymph Lymphatic: no lymphadenopathy noted and no lymphedema noted Resp normal respiratory effort, normal air movement and clear to auscultation bilaterally Cardio regular rate, regular rhythm, S1 normal heart sound, S2 normal heart sound and no murmurs GI normal to inspection, nondistended, normoactive bowel sounds, soft to palpation, non-tender and non-distended Extremity normal capillary refill, no clubbing, cyanosis or edema and no calf tenderness Skin General Skin Exam: no breakdown Neuro CN's II-XII intact bilaterally and no focal motor deficits Neuro Narrative: mild tingling on the left side of her face and LLE and LUE Motor Exam: strength 5/5 throughout Psych thought process normal and cooperative Appearance: appropriate Results Lab / Micro Data 08/05/23 10:00 08/05/23 10:00 Labs: Laboratory Results - last 24 hr 08/05/23 10:00: WBC 7.8, RBC 4.04 L, Hgb 12.9, Hct 39.5, MCV 97.8, MCH 31.9, MCHC 32.7, RDW Std Deviation 47.0 H, RDW Coeff of Itzel 13.1, Plt Count 190, MPV 9.7, Immature Gran % (Auto) 1.300 H, Neut % (Auto) 59.9, Lymph % (Auto) 30.1, [place] % (Auto) 5.2, Eos % (Auto) 2.6, Baso % (Auto) 0.9, Absolute Neuts (auto) 4.7, Absolute Lymphs (auto) 2.33, Nucleated RBC % 0, Sodium 140, Potassium 3.7, Chloride 110 H, Carbon Dioxide 24.0, Anion Gap 6, BUN 15, Creatinine 0.72, Estim Creat Clear Calc 99.99, Est GFR (MDRD) Af Amer 115, Est GFR (MDRD) Non-Af 95, BUN/Creatinine Ratio 20.8 H, Glucose 108 H, Calcium 8.5, Troponin I High Sens 4, TSH 1.54 08/05/23 11:15: PT 14.4, INR 1.1, APTT 32.7 08/05/23 11:16: POC Glucose 120 H Micro: Microbiology 08/05/23 11:15 Nasal Secretion SARS-CoV-2 Antigen (Rapid) - Final Radiology Impression Brain CT 08/05/23 11:02 IMPRESSION: Normal unenhanced CT scan of the brain. N.B. : The above Results were Read Back by Emiliano Gonzalez MD to Niurka Kendall and understanding confirmed on 08/05/2023 11:16:18 (ET). Electronically Signed: Emiliano Gonzalez MD at 11:19 EDT , ADDENDUM: 08/05/23 1126 IMPRESSION: Normal unenhanced CT scan of the brain. N.B. : The above Results were Read Back by Emiliano Gonzalez MD to Niurka Kendall and understanding confirmed on 08/05/2023 11:16:18 (ET). Electronically Signed: Emiliano Gonzalez MD at 11:19 EDT , Assessment & Plan Assessment/Plan (1) Arm paresthesia, left: (2) Left leg paresthesias: (3) Facial paresthesia: PLAN: Plan #Stroke like symptoms * admitted with complaint of numbness and tingling on the left side of her face and left arms and left legs * admit to PCU. Not a candidate for tPA. * PO aspirin 81mg daily and high intensity statin * CT of the brain showed no acute intracranial pathology. * CTA head and neck showed no evidence of hemodynamically significant stenosis * PT/OT on board * hold BP meds to allow for permissive hypertension * order MRI of the brain * 2D echo * #TYpe 2 diabetes mellitus * on dulaglutide 0.75mg sq * ISS. Accuchecks ACHS * #Hypertension; on lisinopril WIll hold to allow for permissive hypertension. IV hydralazine prn #History of migraines. * on topiramate and rizatriptan * DVT prophylaxis: SCDs * Charges/Coding Visit Charges Inpatient E&M: 20429 Init Hosp L3
[2023-08-05] MEDS: Ketorolac 15 MG/ML Vial IV (12:07)
[2023-08-05] MEDS: Metoclopramide 10 MG/2 ML Vial 5 MG IV (12:07)
[2023-08-05] MEDS: DiphenhydrAMINE 50 MG/ML Syringe 25 MG IV (12:07)
[2023-08-05] MEDS: Aspirin 325 MG Tablet PO (12:07)
--- NOTE | 2023-08-05 12:07 | NURSING ---
DR ONEL RODAS
--- NOTE | 2023-08-05 12:59 | CM.ED ---
Social Work SW introduced self and role to patient. Pt had stroke alert called and SW provided support to patient. Pt denies any current SW needs at this time. Pt encouraged to request SW if support needed. Eli Roca ELECTRICAL ASSISTANT, JUNIOR QA ANALYST
[2023-08-05 13:15] LABS: Hemoglobin A1c 6.6 % (3.8-5.6)
--- NOTE | 2023-08-05 13:51 | MRI_ITS ---
STUDY: MRI BRAIN WITHOUT CONTRAST REASON FOR EXAM: Female, 43 years old. left sided numbness and tingling TECHNIQUE: Standardized multiplanar fat and water weighted pulse sequences were obtained. COMPARISON: July 22, [address] brain from today. FINDINGS: Normal size of the ventricles and extra-axial spaces for the patient''s age. Normal white matter tracts of the supratentorial brain. There is no evidence for recent intracranial ischemia or other cause of cytotoxic edema on diffusion weighted imaging (DWI). Normal bilateral basal ganglia. Normal thalami. There is no extra-axial fluid accumulation. Normal flow voids within the major intracranial circulation suggesting patency by spin echo criteria. Normal sella turcica, pituitary gland, infundibular stalk, optic chiasm and hypothalamus. Normal tectal plate and pineal gland. Normal midbrain, javid and medulla. Normal cerebellum. Normal basal cisterns. Normal bilateral temporal bones. Normal bilateral internal auditory canals. No demonstrated orbital abnormality, within the constraints of a routine brain study. Normal visualized paranasal sinuses. Normal calvarium and skull base. Normal visualized soft tissue structures. Normal visualized upper cervical spine. MRI/Brain without Contrast IMPRESSION: Normal unenhanced MRI of the brain. Electronically Signed: Derrick Mendez MD at 17:23 EDT ,
--- NOTE | 2023-08-05 15:47 | ECHOD_ITS ---
Reason For Study: TIA/CVA Procedure This was a 2D Doppler, Color Flow transthoracic echocardiogram. Exam performed portable in patient room. Left Ventricle Normal LV size. Left ventricular systolic function is normal. The estimated ejection fraction is 60 %. Normal diastology for age. No regional wall motion abnormalities noted. Right Ventricle Normal right ventricle. Normal systolic function. Atria Normal left atrium. Normal right atrium. Bubble contrast study negative for right to left interatrial shunt. Mitral Valve Normal mitral valve. Tricuspid Valve Normal tricuspid valve. Aortic Valve Trisinus/trileaflet aortic valve. Pulmonic Valve Normal pulmonic valve. Great Vessels Normal aortic root. The pulmonary artery is normal size. Normal inferior vena cava. Pericardium/Pleural No pericardial effusion. Medication Performed a rapid injection of agitated mix of 9 cc saline and 1cc air to assess for atrial septal defect. MMode/2D Measurements & Calculations LVIDd: 5.5 cm IVSd: 1.3 cm Ao root diam: 3.0 cm LVIDs: 3.7 cm LVPWd: 0.99 cm LA dimension: 4.6 cm RVDd: 3.8 cm FS: 33.8 % LAV(MOD-bp): 71.0 ml LA A4 area: 21.8 cm2 RA A4 area: 18.3 cm2 LAV(MOD-bp) Indexed: 29.5 ml/m2 LAV(MOD-sp2): 70.7 ml LAV(MOD-sp4): 66.5 ml TAPSE: 2.6 cm Time Measurements MV dec time: 0.19 sec Doppler Measurements & Calculations MV E max roberto: 85.1 cm/sec Lat Peak E' Roberto: 14.7 cm/sec Med Peak E' Roberto: 11.0 cm/sec MV A max roberto: 62.1 cm/sec E/E' lat: 5.8 E/E' med: 7.7 MV E/A: 1.4 MV V2 max: 103.0 cm/sec MV P1/2t max roberto: 102.5 cm/sec Ao V2 max: 150.1 cm/sec MV max P.2 mmHg MV P1/2t: 70.7 msec Ao max P.0 mmHg MV V2 mean: 52.2 cm/sec MV dec slope: 424.7 cm/sec2 Ao V2 mean: 106.5 cm/sec MV mean P.3 mmHg MVA(P1/2t): 3.1 cm2 Ao mean P.1 mmHg MV V2 VTI: 36.5 cm Ao V2 VTI: 37.9 cm AV (velocity ratio): 0.80 LV V1 max: 121.4 cm/sec PA V2 max: 93.1 cm/sec LV V1 max P.9 mmHg LV V1 mean P.2 mmHg LV V1 mean: 83.9 cm/sec LV V1 VTI: 30.3 cm ECHO/Echo Complete Interpretation Summary Normal LV size. Left ventricular systolic function is normal. The estimated ejection fraction is 60 %. Bubble contrast study negative for right to left interatrial shunt. Normal diastology for age. Ordering Physician: Sosa Mendez Referring Physician: Zeferino Leon Performed By: Compa Martinez RCS
[2023-08-05] MEDS: Acetaminophen 325 MG Tablet 650 MG PO (19:46)
[2023-08-05] MEDS: Gabapentin 300 MG Capsule PO (22:55)
[2023-08-05] MEDS: Topiramate 100 MG Tablet PO (22:55)
[2023-08-06 04:59] VITALS: BMI 47.2
[2023-08-06 05:30] VITALS: BP 141/85; PULSE 65; RESP 16; TEMP 36.4; O2SAT 97
[2023-08-06 07:10] LABS: Absolute Lymphocyte Count 2.45 X10^3/uL (0.83-4.51); Absolute Neutrophil Count 3.9 X10^3/uL (2.0-7.7); Basophil# 0.06 X10^3/uL; Basophil% 0.8 % (0-1); Eosinophil# 0.22 X10^3/uL; Eosinophils% 3.1 % (0-5); Hematocrit 39.6 % (37-47); Lymphocyte # 2.45 X10^3/ul (0.83-4.51); Lymphocyte % 34.4 % (19-41); Mean Corp Hgb Conc 32.8 g/dL (32-36); Mean Corpuscular Hgb 31.3 pg (27.0-32.0); Mean Corpuscular Volume 95.4 fL (81-99); Mean Platelet Vol. 9.4 fl (6.2-12.0); Monocyte# 0.37 X10^3/uL; Monocyte% 5.2 % (0-10); NRBC Flagged by Analyzer 0 % (0-5); Neutrophil # 3.89 X10^3/uL (2.7-7.7); Neutrophil % 54.5 % (47-70); Platelet Count 184 K/mm3 (150-450); RBC Distribution Width SD 45.4 fl (35.1-43.9); Red Blood Count 4.15 M/mm3 (4.2-5.4); White Blood Count 7.1 K/mm3 (4.4-11.0)
[2023-08-06 07:41] LABS: Anion Gap 5 (5-15); BUN 12 mg/dL (7-18); BUN/Creat Ratio 15.4 RATIO (10-20); Calcium,Total 8.2 mg/dL (8.5-10.1); Chloride 111 mmol/L (98-107); Cholesterol 173 mg/dL (200); Creatinine, Serum 0.78 mg/dL (0.55-1.02); EST Glomerular Filtration Rate 86 mL/min (>60); Est Glom Filt Rate - Afr Amer 104 mL/min (>60); Glucose 143 mg/dL (74-106); High Density Lipoprotein 29 mg/dL; Potassium 3.6 mmol/L (3.5-5.1); Sodium Level 139 mmol/L (136-145); Triglycerides 325 mg/dL; Very Low Density Lipoprotein 65 mg/dL (5-40)
[2023-08-06 07:50] VITALS: O2SAT 95
[2023-08-06 10:44] VITALS: BP 126/82; PULSE 66; RESP 16; TEMP 36.9; O2SAT 99
[2023-08-06] MEDS: Ipratropium Bromide 0.06% NASAL SPRAY 2 SPRAY NASAL ×2 (10:59→21:12)
[2023-08-06] MEDS: Acetaminophen 325 MG Tablet 650 MG PO (11:00)
[2023-08-06] MEDS: Lisinopril 10 MG Tablet PO (11:00)
[2023-08-06] MEDS: Loratadine 10 MG Tablet PO (11:00)
[2023-08-06] MEDS: Topiramate 100 MG Tablet PO ×2 (11:00→21:12)
[2023-08-06] MEDS: Omega-3 Acid Ethyl Esters 1 GM Capsule PO (11:01)
[2023-08-06] MEDS: Gabapentin 300 MG Capsule PO ×2 (11:02→21:12)
[2023-08-06] MEDS: FLUoxetine 20 MG Capsule PO (11:09)
[2023-08-06] MEDS: Aspirin 81 MG TAB.CHEW PO (11:09)
--- NOTE | 2023-08-06 14:17 | CHAPLAIN ---
Type of Pastoral Visit _x__ Initial Visit ___ Follow-up Visit ___ On-call Visit ___ General Patient Visit ___ Spiritual Assessment ___ Family Conference ___ Bereavement ___ Rapid Response ___ Code Blue ___ Other (describe below) Pastoral Care Referral From _x__ Patient ___ Family ___ Nurse ___ Physician ___ Roof Fitter ___ Apparel Machinery Instructor ___ Other (describe below) Sacrament/Intervention _x__ Active listening ___ Anointing ___ Restoration _x__ Bereavement ___ Communion ___ Beata exploration ___ _x__ Life review _x__ Prayer ___ Reconciliation ___ Sacrament of Sick _x__ Supportive presence ___ Wedding ___ Other (describe below) Pastoral Comments patient is waiting for more answers to her tests; pt speaks of her grandfather's sudden on Saturday and upcoming ; pt has support in many ways but also has a daughter as closest family member; pt is talkative about her life and thoughts about health and living; pt is welcoming of spiritual care and prayer for support
[2023-08-06] MEDS: Rizatriptan Benzoate 10 MG Tablet PO (15:20)
[2023-08-06 15:22] VITALS: BP 135/71; PULSE 62; RESP 16; TEMP 36.7; O2SAT 99
--- NOTE | 2023-08-06 15:24 | DS.PCM_ITS ---
Providers Date of Admission: 08/05/23 Date of Discharge: 08/06/23 Primary Care Physician: Dr. Zeferino Leon MD Reason For Visit: TIA Diagnosis Discharge Diagnosis (1) Arm paresthesia, left: Status: Acute Code(s): R20.2 - Paresthesia of skin (2) Left leg paresthesias: Status: Acute Code(s): R20.2 - Paresthesia of skin (3) Facial paresthesia: Status: Acute Code(s): R20.2 - Paresthesia of skin Plan #Stroke like symptoms * admitted with complaint of numbness and tingling on the left side of her face and left arms and left legs * admit to PCU. Not a candidate for tPA. * PO aspirin 81mg daily and high intensity statin * CT of the brain showed no acute intracranial pathology. * CTA head and neck showed no evidence of hemodynamically significant stenosis * PT/OT on board * hold BP meds to allow for permissive hypertension * order MRI of the brain * 2D echo * #TYpe 2 diabetes mellitus * on dulaglutide 0.75mg sq * ISS. Accuchecks ACHS * #Hypertension; on lisinopril WIll hold to allow for permissive hypertension. IV hydralazine prn #History of migraines. * on topiramate and rizatriptan * DVT prophylaxis: SCDs * Medications at Discharge Home Medications blood sugar diagnostic (Blood Glucose Test strips) #10 ea 04/26/20 ipratropium bromide 21 mcg (0.03 %) nasal spray 2 spray intranasal BID 08/23/20 omega-3 fatty acids 1,000 mg capsule (Fish Oil Concentrate) 1,000 mg PO DAILY 02/21/21 albuterol sulfate 90 mcg/actuation aerosol inhaler 2 puff inhalation Q4H PRN jim rtness of breath or wheezing 08/10/22 dulaglutide 0.75 mg/0.5 mL subcutaneous pen injector (Trulicity) 0.75 mg subcut QWEEK 08/10/22 fexofenadine 180 mg tablet (Allergy Relief (fexofenadine)) 180 mg PO DAILY 08/10/22 levonorgestrel 17.5 mcg/24 hrs (5yrs) 19.5mg intrauterine device 1 device intrau terine ONCE 08/10/22 tizanidine 4 mg tablet 4 mg PO Q8H PRN Muscle Spasm 08/10/22 omeprazole 20 mg capsule,delayed release 20 mg PO DAILY PRN gerd 08/16/22 topiramate 100 mg tablet 100 mg PO BID 08/16/22 fluoxetine 20 mg capsule 20 mg PO DAILY 12/28/22 gabapentin 300 mg capsule 300 mg PO BID 12/28/22 lisinopril 10 mg tablet 10 mg PO DAILY 12/28/22 ondansetron HCl 4 mg tablet 4 mg PO Q8H 12/28/22 rizatriptan 10 mg tablet 10 mg PO ONCE 12/28/22 Hospital Course Operations None Procedures 2-D Echocardiogram Summary of Care Provided Minutes Spent on Discharge: 48 Hospital Course: TORI GARCIA, is a 43 F with an extensive PMH as outlined including diabetes mellitus, migraines, LETITIA, vertigo and GERD who presents via the ED on 08/05/2023 with a complaint of dizziness. She says she woke up this morning and was getting ready to go home, but started feeling lightheaded and dizzy. She also noted numbness and pain on the left abeb of her face. She denied any weakness, chest pain, palpitations, dizziness or any other symptoms. She denied any slurred speech or any blurred vision; she did admit to urinary symptoms but said it was because she tried a lot of water. She said she felt her diabetes was well controlled with her last A1c was 6.2. Review of systems otherwise negative. Vitals in the ED temp of 97.4F, OH of 58, BP of 156/76 and RR of 14. She was saturating at 96% on room air. EKG showed no acute ST changes. CT of the brain showed no acute ST changes. She is being admitted to be managed for stroke like symptoms. She had an MRI of the brain which was negative for any evidence of stroke. CT of the head and neck also showed no hemodynamically significant stenosis. She had 2D echo which showed normal left ventricular systolic function with EF of 60% and negative bubble contrast study. [facility] neurology was consulted and reviewed patient and did not think that this was a stroke. There was concern that this was likely due to her migraines and there was also question of somatization as patient's grandfather had just over the previous weekend and this could be contributing to his symptoms. She was discharged home on 08/06/2023. She is follow-up with her primary care doctor within 1 to 2 weeks. Patient seen and examined prior to discharge. She felt well and had no complaints. She had an uneventful night. Review of systems otherwise negative. Labs and vitals reviewed. Home medication reviewed and reconciled. Physical Exam Const alert, oriented x3 and no apparent distress Constitutional Narrative: obese General Appearance: cooperative and comfortable HEENT normocephalic, head/scalp atraumatic, hearing grossly normal bilaterally and moist oral mucous membranes Mouth: oral and palatal mucosa normal Eyes PERRL and EOMs intact bilaterally Neck no lymphadenopathy and supple Lymph Lymphatic: no lymphadenopathy noted and no lymphedema noted Resp normal respiratory effort, normal air movement and clear to auscultation bilaterally Cardio regular rate, regular rhythm, S1 normal heart sound, S2 normal heart sound and no murmurs GI normal to inspection, nondistended, normoactive bowel sounds, soft to palpation, non-tender and non-distended Extremity normal to inspection, full ROM, normal capillary refill, no clubbing, cyanosis or edema and no calf tenderness Skin no rashes or lesions noted and no wounds General Skin Exam: no breakdown Neuro CN's II-XII intact bilaterally and no focal motor deficits Neuro Narrative: minimal tingling on the left side of her face and LLE and LUE Sensorium / Orientation: awake Motor Exam: strength 5/5 throughout Psych thought process normal and cooperative Appearance: appropriate Weight / BMI Weight Weight: 301 lb 9.478 oz Body Mass Index (BMI) 47.2 ABG / Lab / Microbiology Data 08/06/23 06:15 08/06/23 06:15 Laboratory: Laboratory Results - last 24 hr 08/06/23 06:15: WBC 7.1, RBC 4.15 L, Hgb 13.0, Hct 39.6, MCV 95.4, MCH 31.3, MCHC 32.8, RDW Std Deviation 45.4 H, RDW Coeff of Itzel 13.0, Plt Count 184, MPV 9.4, Immature Gran % (Auto) 2.000 H, Neut % (Auto) 54.5, Lymph % (Auto) 34.4, Bleckley % (Auto) 5.2, Eos % (Auto) 3.1, Baso % (Auto) 0.8, Absolute Neuts (auto) 3.9, Absolute Lymphs (auto) 2.45, Nucleated RBC % 0, Sodium 139, Potassium 3.6, Chloride 111 H, Carbon Dioxide 23.0, Anion Gap 5, BUN 12, Creatinine 0.78, Estim Creat Clear Calc 92.30, Est GFR (MDRD) Af Amer 104, Est GFR (MDRD) Non-Af 86, BUN/Creatinine Ratio 15.4, Glucose 143 H, Calcium 8.2 L, Triglycerides 325 H, Cholesterol 173, LDL Cholesterol 79, VLDL Cholesterol 65 H, HDL Cholesterol 29 L Microbiology: Microbiology 08/05/23 11:15 Nasal Secretion SARS-CoV-2 Antigen (Rapid) - Final Radiography Diagnostic Testing: Radiology Impression Brain MRI 08/05/23 13:51 IMPRESSION: Normal unenhanced MRI of the brain. Electronically Signed: Derrick Mendez MD at 17:23 EDT Reading Location ID and State: [facility] / [place] Tel , Service support , Echocardiogram 08/05/23 15:47 Interpretation Summary Normal LV size. Left ventricular systolic function is normal. The estimated ejection fraction is 60 %. Bubble contrast study negative for right to left interatrial shunt. Normal diastology for age. Ordering Physician: Sosa Mendez Referring Physician: Zeferino Leon Performed By: Compa Martinez RCS D/C Instructions Discharge Diet: No restrictions Meaningful Use Info Meaningful Use Diagnoses (Choose all that apply): None applicable Discharge Plan Admission Admit Date/Time: 08/05/23 12:17 Primary Reason for Your Visit: stroke like symptoms Attending Provider: Sosa Mendez Primary Care Provider: Zeferino Leon Instructions Patient Instructions: ED Paraesthesias Discharge Orders/Prescriptions Prescriptions: Continued (DME) blood sugar diagnostic [Blood Glucose Test] Strip See Rx Instructions .ROUTE .MEDSUPPLY Qty: 10 Rx Instructions: As directed ipratropium bromide 0.03 % spray,non-aerosol 2 spray INTRANASAL BID Rx Instructions: administer into each nostril omega-3 fatty acids [Fish Oil Concentrate] 1,000 mg capsule 1,000 mg PO DAILY Trulicity 0.75 mg/0.5 mL pen injector 0.75 mg subcut QWEEK Patient Comments: INJECT 1 PENaSUBCUTANEOUSLY ONCE PER WEEK fexofenadine [Allergy Relief (fexofenadine)] 180 mg tablet 180 mg PO DAILY levonorgestrel 17.5 mcg/24 hrs (5 yrs) 19.5 mg intrauterine device 1 device intrauterine ONCE Rx Instructions: as a single dose omeprazole 20 mg capsule,delayed release(DR/EC) 20 mg PO DAILY PRN (Reason: gerd) Patient Comments: Take 1 capsule by mouthndaily before breakfast. 1/2 hr before meal. topiramate 100 mg tablet 100 mg PO BID Patient Comments: Take 1 tablet by mouthitwice daily. gabapentin 300 mg capsule 300 mg PO BID Patient Comments: TAKE 1 CAP 3 TIMES DAILY.CIF AFTER 2 DAYS SYMPTOMS PERSIST, INCREASE TO 2 CAPS AT BEDTIME lisinopril 10 mg tablet 10 mg PO DAILY Patient Comments: Take 1 tablet by mouthEonce daily. rizatriptan 10 mg tablet 10 mg PO ONCE Patient Comments: Take 1 tablet by mouth astneeded (at onset ofdheadache. May repeatfafter 2 ho urs.). Do not exceed 30 mg per day. ondansetron HCl 4 mg tablet 4 mg PO Q8H Patient Comments: TAKE 1 TABLET BY MOUTHEEVERY 8 HOURS NEEDED FOR NAUSEA OR VOMITING fluoxetine 20 mg capsule 20 mg PO DAILY Patient Comments: Take 1 capsule by mouthConce daily. albuterol sulfate 90 mcg/actuation HFA aerosol inhaler 2 puff INHALATION Q4H PRN (Reason: shortness of breath or wheezing) tizanidine 4 mg tablet 4 mg PO Q8H PRN (Reason: Muscle Spasm) Referrals / Follow Up: Zeferino Leon MD [Primary Care Provider] - Disposition Disposition (needs filled in before D/C Order can be placed): Home, Self Care Charges/Coding Visit Charges Inpatient E&M: 80574 Disch Hosp >30min
--- NOTE | 2023-08-06 16:32 | CASEMGMT ---
RN CM: This RN CM to pt's room to discuss DC needs. Pt with eyes closed, bipap mask on and resp even. Dr. Mendez on unit and states pt does not need therapy for numbness following discharge. No discharge needs identified. DC Plan: Home Tyler Salguero RN CM
[2023-08-06 17:00] VITALS: BMI 47.2
[2023-08-06] MEDS: Acetaminophen/Butalbital/Caffe 1 Tablet 2 TABLET PO (18:46)
[2023-08-06] MEDS: tiZANidine HCl 2 MG Tablet 4 MG PO (19:34)
[2023-08-06 21:16] VITALS: BP 111/74; PULSE 60; RESP 16; TEMP 36.4; O2SAT 100
[2023-08-07 03:15] VITALS: BP 95/61; PULSE 82; RESP 18; TEMP 36.4; O2SAT 95
[2023-08-07] MEDS: tiZANidine HCl 2 MG Tablet 4 MG PO (03:42)
--- NOTE | 2023-08-07 07:50 | PCM.PROGNOTE ---
Subjective Subjective This is a late entry note for 08/06/2023 Patient was seen and examined. She still complained of some mild tingling in her left upper extremity. MRI of the brain was negative for any evidence of stroke. Patient had 2D echo which was also unremarkable. She was discharged home, but later in the day patient said she didnt feel comfortable going home nad wanted to wait one more day. Discharge was therefore cancelled. Objective Data Objective Data Vital Signs: Vital Signs Temp Pulse Resp BP Pulse Ox O2 Del Method 97.6 F L 82 18 95/61 95 Room Air 08/07/23 03:15 08/07/23 03:15 08/07/23 03:15 08/07/23 03:15 08/07/23 03:15 08/07/23 03:15 Oxygen Delivery Method Room Air Weight: 301 lb 9.478 oz Body Mass Index (BMI) 47.2 Intake & Output: Intake and Output for Last 24 Hours 08/05/23 08/06/23 08/07/23 23:59 23:59 23:59 Intake Total 1400 / 1400 1000 / 1000 Balance 1400 / 1400 1000 / 1000 Lab / Micro Data 08/06/23 06:15 08/06/23 06:15 Micro: Microbiology 08/05/23 11:15 Nasal Secretion SARS-CoV-2 Antigen (Rapid) - Final Radiography Diagnostic Testing: Radiology Impression Echocardiogram 08/05/23 15:47 Interpretation Summary Normal LV size. Left ventricular systolic function is normal. The estimated ejection fraction is 60 %. Bubble contrast study negative for right to left interatrial shunt. Normal diastology for age. Ordering Physician: Sosa Mendez Referring Physician: Zeferino Leon Performed By: Compa Martinez RCS Rhythm Strip Rhythm Strip: Sinus Rhythm Rate: 64 Ectopy: None Physical Exam Const alert, oriented x3 and no apparent distress Constitutional Narrative: obese General Appearance: cooperative and comfortable HEENT normocephalic, head/scalp atraumatic, hearing grossly normal bilaterally and moist oral mucous membranes Eyes PERRL and EOMs intact bilaterally Neck no lymphadenopathy and supple Lymph Lymphatic: no lymphadenopathy noted and no lymphedema noted Resp normal respiratory effort, normal air movement and clear to auscultation bilaterally Cardio regular rate, regular rhythm, S1 normal heart sound, S2 normal heart sound and no murmurs GI normal to inspection, nondistended, normoactive bowel sounds, soft to palpation, non-tender and non-distended Extremity normal to inspection, full ROM, normal capillary refill, no clubbing, cyanosis or edema and no calf tenderness Skin no rashes or lesions noted and no wounds General Skin Exam: no breakdown Neuro CN's II-XII intact bilaterally and no focal motor deficits Neuro Narrative: very minimal tingling and numbness on the left side of her face and LLE and LUE Sensorium / Orientation: awake Motor Exam: strength 5/5 throughout Psych thought process normal and cooperative Appearance: appropriate Assessment & Plan Assessment/Plan (1) Arm paresthesia, left: (2) Left leg paresthesias: (3) Facial paresthesia: PLAN: Plan #Stroke like symptoms admitted with complaint of numbness and tingling on the left side of her face and left arms and left legs admit to PCU. Not a candidate for tPA. PO aspirin 81mg daily and high intensity statin CT of the brain showed no acute intracranial pathology. CTA head and neck showed no evidence of hemodynamically significant stenosis MRI of the brain showed no acute intracranial pathology. 2D echo showed EF of 60% with negative bubble study and normal LV size with no regional wall motion abnormalities neurology consulted; they reviewed patient and thought her symptoms were likely due to her migraines or somatization as her grandfather had only recently . PT/OT on board #TYpe 2 diabetes mellitus on dulaglutide 0.75mg sq ISS. Accuchecks ACHS #Hypertension; lisinopril resumed as MRI negative for stroke. #History of migraines. on topiramate and rizatriptan DVT prophylaxis: SCDs Disposition: patient was discharged home. However, she later said she didnt feel comfortable going home and asked to stay one more day. Discharge was therefore cancelled. Charges/Coding Visit Charges Inpatient E&M: 00241 Subs Hosp L2
[2023-08-07 08:09] VITALS: BP 107/70; PULSE 56; RESP 14; TEMP 36.4; O2SAT 98
[2023-08-07 09:15] VITALS: O2SAT 95
[2023-08-07] MEDS: Omega-3 Acid Ethyl Esters 1 GM Capsule PO (09:15)
[2023-08-07] MEDS: Loratadine 10 MG Tablet PO (09:15)
[2023-08-07] MEDS: Aspirin 81 MG TAB.CHEW PO (09:15)
[2023-08-07] MEDS: Lisinopril 10 MG Tablet PO (09:16)
[2023-08-07] MEDS: Topiramate 100 MG Tablet PO (09:16)
[2023-08-07] MEDS: Rizatriptan Benzoate 10 MG Tablet PO (09:16)
[2023-08-07] MEDS: FLUoxetine 20 MG Capsule PO (09:16)
[2023-08-07] MEDS: Gabapentin 300 MG Capsule PO (09:20)
[2023-08-07 11:00] VITALS: BMI 47.2
[2023-08-07] MEDS: Ipratropium Bromide 0.06% NASAL SPRAY 2 SPRAY NASAL (11:05)
[2023-08-07 11:28] LABS: Bedside Glucose 157 mg/dL (74-106)
[2023-08-07 12:00] VITALS: BP 119/75; PULSE 53; RESP 14; TEMP 36.4; O2SAT 99
[2023-08-07] MEDS: oxyCODONE 5 MG Tablet PO (12:03)
[2023-08-07 12:17] VITALS: BP 119/75; PULSE 53; RESP 14; TEMP 36.4; O2SAT 99
--- NOTE | 2023-08-07 13:44 | DS.PCM_ITS ---
Providers Date of Admission: 08/05/23 Date of Discharge: 08/07/23 Primary Care Physician: Dr. Zeferino Leon MD Reason For Visit: TIA Diagnosis Discharge Diagnosis (1) Arm paresthesia, left: Status: Acute Code(s): R20.2 - Paresthesia of skin (2) Left leg paresthesias: Status: Acute Code(s): R20.2 - Paresthesia of skin (3) Facial paresthesia: Status: Acute Code(s): R20.2 - Paresthesia of skin Plan #Stroke like symptoms * admitted with complaint of numbness and tingling on the left side of her face and left arms and left legs * admit to PCU. Not a candidate for tPA. * PO aspirin 81mg daily and high intensity statin * CT of the brain showed no acute intracranial pathology. * CTA head and neck showed no evidence of hemodynamically significant stenosis * MRI of the brain showed no acute intracranial pathology. * 2D echo showed EF of 60% with negative bubble study and normal LV size with no regional wall motion abnormalities * neurology consulted; they reviewed patient and thought her symptoms were likely due to her migraines or somatization as her grandfather had only recently . * PT/OT on board * * #TYpe 2 diabetes mellitus * on dulaglutide 0.75mg sq * ISS. Accuchecks ACHS * #Hypertension; lisinopril resumed as MRI negative for stroke. #History of migraines. * on topiramate and rizatriptan * DVT prophylaxis: SCDs * Disposition: patient was discharged home. However, she later said she didnt feel comfortable going home and asked to stay one more day. Discharge was therefore cancelled. Medications at Discharge Home Medications blood sugar diagnostic (Blood Glucose Test strips) #10 ea 04/26/20 ipratropium bromide 21 mcg (0.03 %) nasal spray 2 spray intranasal BID allergies 08/23/20 omega-3 fatty acids 1,000 mg capsule (Fish Oil Concentrate) 1,000 mg PO DAILY supplement 02/21/21 albuterol sulfate 90 mcg/actuation aerosol inhaler 2 puff inhalation Q4H PRN shortness of breath or wheezing 08/10/22 dulaglutide 0.75 mg/0.5 mL subcutaneous pen injector (Trulicity) 0.75 mg subcut QWEEK diabetes 08/10/22 fexofenadine 180 mg tablet (Allergy Relief (fexofenadine)) 180 mg PO DAILY allergies 08/10/22 levonorgestrel 17.5 mcg/24 hrs (5yrs) 19.5mg intrauterine device 1 device intrauterine ONCE control 08/10/22 tizanidine 4 mg tablet 4 mg PO Q8H PRN Muscle Spasm 08/10/22 omeprazole 20 mg capsule,delayed release 20 mg PO DAILY PRN gerd 08/16/22 topiramate 100 mg tablet 100 mg PO BID seizures 08/16/22 fluoxetine 20 mg capsule 20 mg PO DAILY mental health 12/28/22 gabapentin 300 mg capsule 300 mg PO BID nerve pain 12/28/22 lisinopril 10 mg tablet 10 mg PO DAILY blood pressure 12/28/22 ondansetron HCl 4 mg tablet 4 mg PO Q8H nausea 12/28/22 rizatriptan 10 mg tablet 10 mg PO ONCE migraines 12/28/22 Hospital Course Operations None Procedures 2-D Echocardiogram Summary of Care Provided Minutes Spent on Discharge: 45 Hospital Course: TORI GARCIA, is a 43 F with an extensive PMH as outlined including diabetes mellitus, migraines, LETITIA, vertigo and GERD who presents via the ED on 08/05/2023 with a complaint of dizziness. She says she woke up this morning and was getting ready to go home, but started feeling lightheaded and dizzy. She also noted numbness and pain on the left abbe of her face. She denied any weakness, chest pain, palpitations, dizziness or any other symptoms. She denied any slurred speech or any blurred vision; she did admit to urinary symptoms but said it was because she tried a lot of water. She said she felt her diabetes was well controlled with her last A1c was 6.2. Review of systems otherwise negative. Vitals in the ED temp of 97.4F, [place] of 58, BP of 156/76 and RR of 14. She was saturating at 96% on room air. EKG showed no acute ST changes. CT of the brain showed no acute ST changes. She is being admitted to be managed for stroke like symptoms. She had an MRI of the brain which was negative for any evidence of stroke. CT of the head and neck also showed no hemodynamically significant stenosis. She had 2D echo which showed normal left ventricular systolic function with EF of 60% and negative bubble contrast study. [facility] neurology was consulted and reviewed patient and did not think that this was a stroke. There was concern that this was likely due to her migraines and there was also question of somatization as patient's grandfather had just over the previous weekend and this could be contributing to his symptoms. Patient was recently discharged home on 08/06/2023 but said her headache had recurred and she was having some numbness and tingling in her left arm supervised stay 1 more day. Discharge was therefore canceled and patient stayed overnight for 08/07/2024. Her symptoms did improve and she was discharged on 07/28/2023. Subsequently stated that she had been on magnesium at home and had 1 also she believes that that was contributing to her symptoms. Patient seen and examined prior to discharge. She felt well and had no complaints. She had an uneventful night. Review of systems otherwise negative. Labs and vitals reviewed. Home medication reviewed and reconciled. Physical Exam Const alert, oriented x3 and no apparent distress Constitutional Narrative: obese General Appearance: cooperative and comfortable HEENT normocephalic, head/scalp atraumatic, hearing grossly normal bilaterally and moist oral mucous membranes Mouth: oral and palatal mucosa normal Eyes PERRL and EOMs intact bilaterally Neck no lymphadenopathy and supple Lymph Lymphatic: no lymphadenopathy noted and no lymphedema noted Resp normal respiratory effort, normal air movement and clear to auscultation bilaterally Cardio regular rate, regular rhythm, S1 normal heart sound, S2 normal heart sound and no murmurs GI normal to inspection, nondistended, normoactive bowel sounds, soft to palpation, non-tender and non-distended Extremity normal to inspection, full ROM, normal capillary refill, no clubbing, cyanosis o r edema and no calf tenderness Skin no rashes or lesions noted and no wounds General Skin Exam: no breakdown Neuro CN's II-XII intact bilaterally and no focal motor deficits Neuro Narrative: very minimal tingling and numbness on the left side of her face and LLE and LUE Sensorium / Orientation: awake Motor Exam: strength 5/5 throughout Psych thought process normal and cooperative Appearance: appropriate Weight / BMI Weight Weight: 301 lb 9.478 oz Body Mass Index (BMI) 47.2 ABG / Lab / Microbiology Data 08/06/23 06:15 08/06/23 06:15 Laboratory: Laboratory Results - last 24 hr 10/04/23 11:02: POC Glucose 157 H Microbiology: Microbiology 08/05/23 11:15 Nasal Secretion SARS-CoV-2 Antigen (Rapid) - Final Radiography Diagnostic Testing: Radiology Impression Echocardiogram 08/05/23 15:47 Interpretation Summary Normal LV size. Left ventricular systolic function is normal. The estimated ejection fraction is 60 %. Bubble contrast study negative for right to left interatrial shunt. Normal diastology for age. Ordering Physician: Sosa Mendez Referring Physician: Zeferino Leon Performed By: Compa Martinez RCS D/C Instructions Discharge Diet: No restrictions Discharge Activity: Return to Normal Activity Weight Bearing Status: Weight bearing as tolerated Call your doctor if you observe: Fever of 101 or Higher, Shortness of breath, Dizziness, Swelling in the ankles and Chest pain Meaningful Use Info Meaningful Use Diagnoses (Choose all that apply): None applicable Discharge Plan Admission Admit Date/Time: 08/05/23 12:17 Primary Reason for Your Visit: stroke like symptoms Attending Provider: Sosa Mendez Primary Care Provider: Zeferino Leon Instructions Forms: Work / School Excuse Patient Instructions: ED Paraesthesias Discharge Orders/Prescriptions Prescriptions: Continued (DME) blood sugar diagnostic [Blood Glucose Test] Strip See Rx Instructions .ROUTE .MEDSUPPLY Qty: 10 Rx Instructions: As directed ipratropium bromide 0.03 % spray,non-aerosol 2 spray INTRANASAL BID Rx Instructions: administer into each nostril omega-3 fatty acids [Fish Oil Concentrate] 1,000 mg capsule 1,000 mg PO DAILY Trulicity 0.75 mg/0.5 mL pen injector 0.75 mg subcut QWEEK Patient Comments: INJECT 1 PENaSUBCUTANEOUSLY ONCE PER WEEK fexofenadine [Allergy Relief (fexofenadine)] 180 mg tablet 180 mg PO DAILY levonorgestrel 17.5 mcg/24 hrs (5 yrs) 19.5 mg intrauterine device 1 device intrauterine ONCE Rx Instructions: as a single dose omeprazole 20 mg capsule,delayed release(DR/EC) 20 mg PO DAILY PRN (Reason: gerd) Patient Comments: Take 1 capsule by mouthndaily before breakfast. 1/2 hr before meal. topiramate 100 mg tablet 100 mg PO BID Patient Comments: Take 1 tablet by mouthitwice daily. gabapentin 300 mg capsule 300 mg PO BID Patient Comments: TAKE 1 CAP 3 TIMES DAILY.CIF AFTER 2 DAYS SYMPTOMS PERSIST, INCREASE TO 2 CAPS AT BEDTIME lisinopril 10 mg tablet 10 mg PO DAILY Patient Comments: Take 1 tablet by mouthEonce daily. rizatriptan 10 mg tablet 10 mg PO ONCE Patient Comments: Take 1 tablet by mouth astneeded (at onset ofdheadache. May repeatfafter 2 hours.). Do not exceed 30 mg per day. ondansetron HCl 4 mg tablet 4 mg PO Q8H Patient Comments: TAKE 1 TABLET BY MOUTHEEVERY 8 HOURS NEEDED FOR NAUSEA OR VOMITING fluoxetine 20 mg capsule 20 mg PO DAILY Patient Comments: Take 1 capsule by mouthConce daily. albuterol sulfate 90 mcg/actuation HFA aerosol inhaler 2 puff INHALATION Q4H PRN (Reason: shortness of breath or wheezing) tizanidine 4 mg tablet 4 mg PO Q8H PRN (Reason: Muscle Spasm) Referrals / Follow Up: Zeferino Leon MD [Primary Care Provider] - Disposition Disposition (needs filled in before D/C Order can be placed): Home, Self Care Charges/Coding Visit Charges Inpatient E&M: 84096 Disch Hosp >30min
== END 2023-08-07 12:17 | disposition home or self-care (01) ==
LOC: ED 11:57 → PCU 12:46
PROVIDERS: Admitting Provider Student in an Organized Health Care Education/Training Program; Emergency Provider Emergency Medicine; PCP Family Medicine; Visit Provider Student in an Organized Health Care Education/Training Program
DX: R20.2 Paresthesia of skin (principal); E11.9 Type 2 diabetes mellitus without complications; E78.00 Pure hypercholesterolemia, unspecified; I10 Essential (primary) hypertension; G43.909 Migraine, unspecified, not intractable, without status migrainosus; K21.9 Gastro-esophageal reflux disease without esophagitis; G47.33 Obstructive sleep apnea (adult) (pediatric); Z79.899 Other long term (current) drug therapy; Z79.85 Long-term (current) use of injectable non-insulin antidiabetic drugs
CPT/HCPCS: 36415; 70450; 70496; 70498; 70551; 71045; 80048; 80061; 82962; 83036; 84443; 84484; 85025; 85610; 85730; 87811; 93005; 93306; 94762; 96361; 96374; 96375; 99221; 99285; J7030; Q9957; Q9967; A4216; G0378

== ENCOUNTER 2023-10-27 15:05 | Emergency (ER) | payer OTHER, SELFPAY ==
[2023-10-27 15:06] VITALS: BP 173/90; PULSE 80; RESP 16; TEMP 36.1; O2SAT 98; BMI 43.9
--- NOTE | 2023-10-27 15:13 | EX.ED.DYSGE1 ---
HPI History of Present Illness Chief Complaint: Ear Problem [facility] Medical History Abnormal ECG Acute bronchitis Acute cholecystitis Acute kidney injury Acute respiratory insufficiency Anxiety Back pain Calculus of left kidney Degeneration of intervertebral disc of lumbosacral region Disc displacement, lumbar Dyspnea Dysuria Elevated triglycerides with high cholesterol Fatty liver History of obstructive sleep apnea History of stent into kidney Hydronephrosis, left Hydroureter, left Hypertension 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 Left shoulder pain Left shoulder strain Left upper extremity numbness Left upper quadrant abdominal pain Lumbar facet arthropathy Lumbosacral spondylosis Microalbuminuria Migraines Nausea Nephrolithiasis Nonalcoholic hepatosteatosis Obesity Obstructive Sleep Apnea-Hypopnea Syndrome LETITIA (obstructive sleep apnea) Pain of left scapula Prolonged Q-T interval on ECG Pyelonephritis Radiculopathy of lumbosacral region Segmental and somatic dysfunction of cervical region Segmental and somatic dysfunction of lumbar region Segmental and somatic dysfunction of pelvic region Segmental and somatic dysfunction of thoracic region Type 2 diabetes mellitus Type 2 diabetes mellitus with microalbuminuria Type 2 diabetes mellitus without complication, with long-term current use of insulin Urinary tract infection Vertigo Home Medications blood sugar diagnostic (Blood Glucose Test strips) #10 ea 04/26/20 [History Last Taken Unknown] ipratropium bromide 21 mcg (0.03 %) nasal spray 2 spray intranasal BID allergies 08/23/20 [History Last Taken 08/03/23] omega-3 fatty acids 1,000 mg capsule (Fish Oil Concentrate) 1,000 mg PO DAILY supplement 02/21/21 [History Last Taken 08/05/23] albuterol sulfate 90 mcg/actuation aerosol inhaler 2 puff inhalation Q4H PRN shortness of breath or wheezing 08/10/22 [History Last Taken 08/03/23] dulaglutide 0.75 mg/0.5 mL subcutaneous pen injector (Trulicity) 0.75 mg subcut QWEEK diabetes 08/10/22 [History Last Taken 07/29/23] fexofenadine 180 mg tablet (Allergy Relief (fexofenadine)) 180 mg PO DAILY allergies 08/10/22 [History Last Taken 08/05/23] levonorgestrel 17.5 mcg/24 hrs (5yrs) 19.5mg intrauterine device 1 device intrauterine ONCE control 08/10/22 [History Last Taken Unknown] tizanidine 4 mg tablet 4 mg PO Q8H PRN Muscle Spasm 08/10/22 [History Last Taken 08/04/23] omeprazole 20 mg capsule,delayed release 20 mg PO DAILY PRN gerd 08/16/22 [History Last Taken Unknown] topiramate 100 mg tablet 100 mg PO BID seizures 08/16/22 [History Last Taken 08/05/23] fluoxetine 20 mg capsule 20 mg PO DAILY mental health 12/28/22 [History Last Taken 08/04/23] gabapentin 300 mg capsule 300 mg PO BID nerve pain 12/28/22 [History Last Taken 08/05/23] lisinopril 10 mg tablet 10 mg PO DAILY blood pressure 12/28/22 [History Last Taken 08/05/23] ondansetron HCl 4 mg tablet 4 mg PO Q8H nausea 12/28/22 [History Last Taken Unknown] rizatriptan 10 mg tablet 10 mg PO ONCE migraines 12/28/22 [History Last Taken 08/05/23] amoxicillin 875 mg-potassium clavulanate 125 mg tablet 1 tab PO BID #14 tabs 10/27/23 [Rx Last Taken Unknown] ofloxacin 0.3 % ear drops 10 drp LEFT EAR DAILY 7 days #10 mL 10/27/23 [Rx Last Taken Unknown] Allergy/AdvReac Type Severity Reaction Status Date / Time Corticosteroids Allergy Hives Verified 09/12/23 10:35 (Glucocorticoids) [steroids] lidocaine AdvReac Intermediate Hives Verified 09/12/23 10:35 Family History Father Diabetes Myocardial infarction Pancreatic cancer Mother Alcohol abuse Drug abuse Grandfather Diabetes Grandmother Lung cancer Grandmother Heart disease Triple bypass surgery Surgical History H/O: (~2005) History of urethral stent (~2018) Hx laparoscopic cholecystectomy (~2005) Social History Smoking Status: Never smoker alcohol intake: never substance use type: does not use caffeine: Yes Type: coffee what type of physical activity do you participate in: walking frequency: daily seatbelt use: always do you feel safe at home: Yes EXAM Physical Exam Const Vital Signs: 10/27/23 15:06 Temperature 97.0 F L Temperature Source Temporal Pulse Rate 80 Respiratory Rate 16 Blood Pressure 173/90 H Blood Pressure Mean 117 Pulse Ox 98 Oxygen Delivery Method Room Air [facility] [place] Narrative Medical decision making narrative: HISTORY OF PRESENT ILLNESS: 43-year-old female here with left ear pain. No water exposure noted., REVIEW OF SYSTEMS: Pertinent positives: Ear pain, decreased hearing Pertinent negatives: Sore throat, nausea vomiting PHYSICAL EXAM: Nursing triage notes reviewed, Vital signs reviewed Constitutional: please see mdm HENT: MMM Right TM clear, left TM unable to visualize secondary to extensive external auditory canal swelling and purulent discharge consistent with otitis externa no mastoid tenderness. Eyes: Pupils equal round and reactive to light, Extraocular muscles intact Skin: No rash or lesions noted MEDICAL DECISION MAKING: Chief Complaint: Ear pain External records reviewed: No recent evaluations for similar Factors affecting care: Type 2 diabetes [facility] Narrative: Patient was hemodynamically stable, afebrile, nontoxic-appearing. Exam consistent with otitis externa. I considered the following differential diagnosis: Otitis media, otitis externa, mastoiditis No evidence of mastoiditis on exam. Will give ofloxacin drops and prophylactic oral Augmentin to cover any middle ear infection that may be undiagnosed given significant swelling of left external auditory canal and history of diabetes. The patient and/or family, caregivers express understanding. The patient and/or family, caregivers agrees with the plan. Shared decision making: I will have a discussion with the patient and or visitors regarding risk/benefits of further testing or admission. They will be made aware of of the risk/benefits inherent in this decision they will be given the opportunity to voice understanding. Total critical care time today provided was at least 0 minutes. This excludes separately billable procedures. Critical care time (if documented) is secondary to the patient having high probability of clinically significant/life threatening deterioration in the patient's condition which required my urgent intervention. Impression: 1. Ear pain 2. History of diabetes 3. Otitis externa Dispo: Discharge Discharge Plan Triage Chief Complaint: Ear Problem ED Provider: Luan Zepeda Dx/Rx/DC Orders Clinical Impression: Otitis externa Instructions: ED External Ear Infection (Adult) Prescriptions: New amoxicillin-pot clavulanate 875-125 mg tablet 1 tab PO BID Qty: 14 0RF ofloxacin 0.3 % drops 10 drp LEFT EAR DAILY 7 Days Qty: 10 0RF No Action (DME) blood sugar diagnostic [Blood Glucose Test] Strip See Rx Instructions .ROUTE .MEDSUPPLY Qty: 10 Rx Instructions: As directed ipratropium bromide 0.03 % spray,non-aerosol 2 spray INTRANASAL BID Rx Instructions: administer into each nostril omega-3 fatty acids [Fish Oil Concentrate] 1,000 mg capsule 1,000 mg PO DAILY Trulicity 0.75 mg/0.5 mL pen injector 0.75 mg subcut QWEEK Patient Comments: INJECT 1 PENaSUBCUTANEOUSLY ONCE PER WEEK fexofenadine [Allergy Relief (fexofenadine)] 180 mg tablet 180 mg PO DAILY levonorgestrel 17.5 mcg/24 hrs (5 yrs) 19.5 mg intrauterine device 1 device intrauterine ONCE Rx Instructions: as a single dose omeprazole 20 mg capsule,delayed release(DR/EC) 20 mg PO DAILY PRN (Reason: gerd) Patient Comments: Take 1 capsule by mouthndaily before breakfast. 1/2 hr before meal. topiramate 100 mg tablet 100 mg PO BID Patient Comments: Take 1 tablet by mouthitwice daily. gabapentin 300 mg capsule 300 mg PO BID Patient Comments: TAKE 1 CAP 3 TIMES DAILY.CIF AFTER 2 DAYS SYMPTOMS PERSIST, INCREASE TO 2 CAPS AT BEDTIME lisinopril 10 mg tablet 10 mg PO DAILY Patient Comments: Take 1 tablet by mouthEonce daily. rizatriptan 10 mg tablet 10 mg PO ONCE Patient Comments: Take 1 tablet by mouth astneeded (at onset ofdheadache. May repeatfafter 2 hours.). Do not exceed 30 mg per day. ondansetron HCl 4 mg tablet 4 mg PO Q8H Patient Comments: TAKE 1 TABLET BY MOUTHEEVERY 8 HOURS NEEDED FOR NAUSEA OR VOMITING fluoxetine 20 mg capsule 20 mg PO DAILY Patient Comments: Take 1 capsule by mouthConce daily. albuterol sulfate 90 mcg/actuation HFA aerosol inhaler 2 puff INHALATION Q4H PRN (Reason: shortness of breath or wheezing) tizanidine 4 mg tablet 4 mg PO Q8H PRN (Reason: Muscle Spasm) Primary Care Provider: Zeferino Leon Referrals: Zeferino Leon MD [Primary Care Provider] - Activity Restrictions/Additional Instructions: Thank you for trusting us with your care today! Please take Tylenol (2 pills, 650 mg), ibuprofen (2 pills, 400 mg) every 6 hours as needed for pain and fever control. Please take Augmentin as prescribed. Please use eardrops as prescribed. Please return to the emergency department if your symptoms change or worsen. Please follow with your primary care physician for further outpatient evaluation and management. Disposition Disposition: Home, Self Care
[2023-10-27] MEDS: Amox/Clavulanate 875 MG Tablet PO (15:49)
== END 2023-10-27 16:12 | disposition home or self-care (01) ==
LOC: ED 15:51
PROVIDERS: Emergency Provider Emergency Medicine; PCP Family Medicine; Visit Provider Emergency Medicine
DX: H60.90 Unspecified otitis externa, unspecified ear (principal); E11.9 Type 2 diabetes mellitus without complications; I10 Essential (primary) hypertension
CPT/HCPCS: 99282

== ENCOUNTER → 2023-12-06 | Outpatient (CLI) | payer OTHER, SELFPAY ==
[2023-12-06 09:07] LABS: Absolute Lymphocyte Count 2.89 X10^3/uL (0.83-4.51); Absolute Neutrophil Count 7.1 X10^3/uL (2.0-7.7); Basophil# 0.07 X10^3/uL; Basophil% 0.7 % (0-1); Eosinophil# 0.15 X10^3/uL; Eosinophils% 1.4 % (0-5); Hematocrit 39.9 % (37-47); Hemoglobin 13.1 g/dL (12.0-15.0); Lymphocyte # 2.89 X10^3/ul (0.83-4.51); Mean Corp Hgb Conc 32.8 g/dL (32-36); Mean Corpuscular Hgb 30.5 pg (27.0-32.0); Mean Corpuscular Volume 92.8 fL (81-99); Mean Platelet Vol. 8.8 fl (6.2-12.0); Monocyte# 0.39 X10^3/uL; Monocyte% 3.6 % (0-10); NRBC Flagged by Analyzer 0 % (0-5); Neutrophil # 7.11 X10^3/uL (2.7-7.7); Neutrophil % 66.3 % (47-70); Platelet Count 241 K/mm3 (150-450); RBC Distribution Width CV 13.1 % (11.6-14.6); RBC Distribution Width SD 44.4 fl (35.1-43.9); White Blood Count 10.7 K/mm3 (4.4-11.0)
[2023-12-06 09:25] LABS: ALB/GLOB Ratio 0.9 RATIO (0.9-2.4); AST(SGOT) 11 U/L (15-37); Alanine Aminotransfer ALT/SGPT 24 U/L (13-56); Albumin, Serum 4.1 g/dL (3.2-5.0); Alkaline Phosphatase 80 U/L (45-117); Anion Gap 6 (5-15); BUN 23 mg/dL (7-18); BUN/Creat Ratio 25.9 RATIO (10-20); Calcium,Total 9.1 mg/dL (8.5-10.1); Chloride 113 mmol/L (98-107); Cholesterol 202 mg/dL (200); Creatinine, Serum 0.89 mg/dL (0.55-1.02); EST Glomerular Filtration Rate 74 mL/min (>60); Est Glom Filt Rate - Afr Amer 90 mL/min (>60); Globulin 4.6 g/dL (2.2-4.2); Glucose 113 mg/dL (74-106); High Density Lipoprotein 36 mg/dL; Protein, Total 8.7 g/dL (6.4-8.2); Sodium Level 138 mmol/L (136-145); Triglycerides 192 mg/dL; Very Low Density Lipoprotein 38 mg/dL (5-40)
[2023-12-06 09:39] LABS: Hemoglobin A1c 5.7 % (3.8-5.6)
== END | disposition home or self-care (01) ==
LOC: PAVLAB 08:49
PROVIDERS: PCP Family Medicine; Referring Provider Family Medicine; Visit Provider Family Medicine
DX: E11.29 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 kidney complication (principal); Z79.4 Long term (current) use of insulin; R80.9 Proteinuria, unspecified
CPT/HCPCS: 36415; 80053; 80061; 83036; 85025

== ENCOUNTER 2024-02-04 01:09 | Emergency (ER) | payer OTHER, SELFPAY ==
[2024-02-04 01:12] VITALS: BP 142/75; PULSE 65; RESP 16; TEMP 36.7; O2SAT 99; BMI 43.0
--- NOTE | 2024-02-04 02:01 | EDS_ITS ---
HPI History of Present Illness Chief Complaint: Dizziness Informant: patient Narrative Narrative: Patient has multiple complaints, she states she is felt like she started getting sick 4-5 days ago with subjective fevers, cough, some occasional shortness of breath especially when she lies down, migraine which she has a longstanding history of with right frontal and retro-orbital headache, nasal congestion, left earache, and intermittent vertigo whenever she would change positions which she has a history of and is taking meclizine for. Tonight, she was laying down to go to sleep, had not fallen asleep yet but was suddenly starting having visual disturbances. They look like flashes of light, they look like seeing bugs in her visual cardenas, right now she does not have that when her eyes are open and her vision seems normal but whenever she closes her eyes she is seeing black and white. Also earlier she was saying things to her daughter that did not make any sense. She was saying something about going to the blue or green room and her daughter said that what ever she was saying did not make any sense and she was saying yes, we have to go there. She is insightful that that does not make any sense right now, and she does not know why she was saying that at the time does not recall what exact symptoms she had at that time. She denies any sudden onset of headache, she states the headache that she has had since feels like a migraine and has been pretty typical for her otherwise till this tonight. In addition, abnormal for her, for the past 4 or 5 days she has been extremely thirsty, drinking a ton of water, and urinating a lot as well. She is diabetic and her blood sugars been okay and her last A1c was in the 5.1 range. [facility] Medical History Abnormal ECG Acute bronchitis Acute cholecystitis Acute kidney injury Acute respiratory insufficiency Anxiety Back pain Calculus of left kidney Degeneration of intervertebral disc of lumbosacral region Disc displacement, lumbar Dyspnea Dysuria Elevated triglycerides with high cholesterol Fatty liver History of obstructive sleep apnea History of stent into kidney Hydronephrosis, left Hydroureter, left Hypertension 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 Left shoulder pain Left shoulder strain Left upper extremity numbness Left upper quadrant abdominal pain Lumbar facet arthropathy Lumbosacral spondylosis Microalbuminuria Migraines Nausea Nephrolithiasis Nonalcoholic hepatosteatosis Obesity Obstructive Sleep Apnea-Hypopnea Syndrome LETITIA (obstructive sleep apnea) Pain of left scapula Prolonged Q-T interval on ECG Pyelonephritis Radiculopathy of lumbosacral region Segmental and somatic dysfunction of cervical region Segmental and somatic dysfunction of lumbar region Segmental and somatic dysfunction of pelvic region Segmental and somatic dysfunction of thoracic region Type 2 diabetes mellitus Type 2 diabetes mellitus with microalbuminuria Type 2 diabetes mellitus without complication, with long-term current use of insulin Urinary tract infection Vertigo Home Medications blood sugar diagnostic (Blood Glucose Test strips) #10 ea 04/26/20 [History Last Taken Unknown] ipratropium bromide 21 mcg (0.03 %) nasal spray 2 spray intranasal BID allergies 08/23/20 [History Last Taken 08/03/23] omega-3 fatty acids 1,000 mg capsule (Fish Oil Concentrate) 1,000 mg PO DAILY supplement 02/21/21 [History Last Taken 08/05/23] albuterol sulfate 90 mcg/actuation aerosol inhaler 2 puff inhalation Q4H PRN shortness of breath or wheezing 08/10/22 [History Last Taken 08/03/23] dulaglutide 0.75 mg/0.5 mL subcutaneous pen injector (Trulicity) 0.75 mg subcut QWEEK diabetes 08/10/22 [History Last Taken 07/29/23] fexofenadine 180 mg tablet (Allergy Relief (fexofenadine)) 180 mg PO DAILY allergies 08/10/22 [History Last Taken 08/05/23] levonorgestrel 17.5 mcg/24 hrs (5yrs) 19.5mg intrauterine device 1 device intrauterine ONCE control 08/10/22 [History Last Taken Unknown] tizanidine 4 mg tablet 4 mg PO Q8H PRN Muscle Spasm 08/10/22 [History Last Taken 08/04/23] omeprazole 20 mg capsule,delayed release 20 mg PO DAILY PRN gerd 08/16/22 [History Last Taken Unknown] topiramate 100 mg tablet 100 mg PO BID seizures 08/16/22 [History Last Taken 08/05/23] fluoxetine 20 mg capsule 20 mg PO DAILY mental health 12/28/22 [History Last Taken 08/04/23] gabapentin 300 mg capsule 300 mg PO BID nerve pain 12/28/22 [History Last Taken 08/05/23] lisinopril 10 mg tablet 10 mg PO DAILY blood pressure 12/28/22 [History Last Taken 08/05/23] ondansetron HCl 4 mg tablet 4 mg PO Q8H PRN nausea 12/28/22 [History Last Taken Unknown] rimegepant 75 mg disintegrating tablet (Nurtec ODT) 75 mg PO DAILY PRN migraine headache 02/04/24 [History Last Taken Unknown] sulfamethoxazole 800 mg-trimethoprim 160 mg tablet 1 tab PO BID #6 TABLETS 02/04/24 [Rx Last Taken Unknown] Allergy/AdvReac Type Severity Reaction Status Date / Time Corticosteroids Allergy Hives Verified 02/04/24 01:20 (Glucocorticoids) [steroids] lidocaine AdvReac Intermediate Hives Verified 02/04/24 01:20 Family History Father Diabetes Myocardial infarction Pancreatic cancer Mother Alcohol abuse Drug abuse Grandfather Diabetes Grandmother Lung cancer Grandmother Heart disease Triple bypass surgery Surgical History H/O: (~2005) History of urethral stent (~2018) Hx laparoscopic cholecystectomy (~2005) Social History Smoking Status: Never smoker alcohol intake: never substance use type: does not use caffeine: Yes Type: coffee what type of physical activity do you participate in: walking frequency: daily seatbelt use: always do you feel safe at home: Yes ROS ROS ED Constitutional Constitutional ED: Denies chills or fever(s) Eyes Eyes: Reports change in vision and other Details: No eye pain ; Denies diplopia ENT ENT ED: Reports ear pain left, nasal congestion, rhinorrhea and sore throat Cardiovascular Cardiovascular: Denies chest pain or palpitations Respiratory/Chest Respiratory/Chest: Reports dyspnea Gastrointestinal Gastrointestinal: Denies abdominal pain, diarrhea, nausea or vomiting Genitourinary Genitourinary ED: Denies dysuria or hematuria Musculoskeletal Musculoskeletal: Denies myalgias or neck pain Integumentary Denies abscess or rash Neurologic Neurologic: Reports as per HPI, behavior changes, headache(s) and vertigo; Denies paresthesias, seizures or weakness Psychiatric Psychiatric: Denies depression or suicidal thoughts Endocrine Endocrinology: Reports polydipsia and polyuria; Denies polyphagia EXAM Physical Exam Const Vital Signs: 02/04/24 01:12 02/04/24 01:14 Temperature 98.1 F Temperature Source Temporal Pulse Rate 65 Respiratory Rate 16 Respiratory Effort Normal Respiratory Pattern Normal Blood Pressure 142/75 H Blood Pressure Mean 97 Pulse Ox 99 Oxygen Delivery Method Room Air Positive well nourished, well developed and obese General Appearance ED: well developed and NAD Nutritional Appearance: obese HEENT Reports TM's clear and moist mucous membranes normocephalic and atraumatic Tympanic Membrane ED: Yes TM's clear Throat: Negative for posterior oropharynx abnormal Eyes PERRL and EOMs intact bilaterally Eyes Narrative: Normal visual field exam bilaterally. No pathologic nystagmus. Patient examined while not particularly vertiginous. Neck no lymphadenopathy, supple, no meningeal signs and no JVD Chest Wall inspection of chest normal and palpation of chest normal Resp normal respiratory effort and clear to auscultation bilaterally Cardio no murmurs Rate: regular rate; Negative for tachycardic Rhythm: regular rhythm GI non-tender and non-distended Auscultation: normoactive bowel sounds Palpation: soft Back/Spine no CVA tenderness General Back: other FROM Extremity normal to inspection General Extremety ED: Negative for edema, pulses abnormal or tenderness General Extremity: Negative for edema or pulses abnormal Neuro oriented x3, CN's II-XII intact bilaterally and no sensory deficits noted Neuro Narrative: Normal speech. No aphasia. Normal [id number] and [id number] bilaterally. No confusion. Sensorium / Orientation: alert Motor Exam: strength 5/5 throughout Psych mental status grossly normal Skin no rashes or lesions noted and no wounds Lesions: no lesions Rashes: no rashes MDM MDM MDM Narrative Medical decision making narrative: It is possible that she has an infection such as COVID, influenza, pneumonia, however her lungs are clear her pulse ox is 99% room air, she has no tachycardia and the rest of her vital signs are normal. It is also possible that there is a metabolic disturbance. I do not think this is a primary [employer] problem. She describes visual disturbance being diffuse, and not focal and just 1 or other visual cardenas. It is also bilateral making it less likely to be a single globe/eye problem. While performing metabolic workup, chest x-ray 2 view, and COVID/influenza/RSV swab, she was agreeable to get a medication for her migraines and she was given Reglan. The chest x-ray 2 views my interpretation normal, negative for pneumonia, radiology in agreement, and her COVID/influenza/RSV swab is negative. On reevaluation her headache is feeling better, and her workup basically is consistent with a normal anion gap, blood sugar of 246, mild leukocytosis, and her urine shows infection, no glycosuria. There is 4+ bacteria along with some positive infection indicators. Therefore I think this is probably what is causing her urinary frequency. As far as the visual disturbance and the transient disorientation, I do not think this was anything dangerous, unknown if related to her urine infection, her migraine, some type of viral syndrome, or transient electrolyte/glucose level disturbance. I do not think she needs advanced emergent imaging of her head/brain. Vital signs are normal, started on Bactrim, send a urine culture, follow-up advised she is comfortable with that plan. Lab Data Attestation: I reviewed the patient's lab results. Labs: Laboratory Results - last 24 hr 02/04/24 02/04/24 02:10 02:15 WBC 11.3 H RBC 3.82 L Hgb 11.2 L Hct 34.2 L MCV 89.5 MCH 29.3 MCHC 32.7 RDW Std Deviation 43.2 RDW Coeff of Itzel 13.2 Plt Count 203 MPV 9.2 Immature Gran % (Auto) 1.300 H Neut % (Auto) 71.0 H Lymph % (Auto) 19.8 Shannon % (Auto) 6.6 Eos % (Auto) 0.9 Baso % (Auto) 0.4 Absolute Neuts (auto) 8.0 H Absolute Lymphs (auto) 2.24 Nucleated RBC % 0 Sodium 135 L Potassium 3.6 Chloride 106 Carbon Dioxide 21.0 Anion Gap 8 BUN 13 Creatinine 0.87 Estim Creat Clear Calc 116.68 Est GFR (MDRD) Af Amer 92 Est GFR (MDRD) Non-Af 76 BUN/Creatinine Ratio 15.0 Glucose 246 H Calcium 8.4 L Urine Color Yellow Urine Clarity Clear Urine pH 7.0 Ur Specific Zalma 1.010 Urine Protein 15 H Urine Glucose (UA) Normal Urine Ketones Negative Urine Occult Blood 10 H Urine Nitrite Negative Urine Bilirubin Negative Urine Urobilinogen Normal Ur Leukocyte Esterase 100 H Urine RBC 0-5 SEEN Urine WBC 10-25 SEEN Ur Squamous Epith Cells 0-5 SEEN Urine Bacteria 4+ Urine Mucus 0 SEEN Radiography Diagnostic Testing: Clinical Impression(s) from Imaging Studies Chest X-Ray 02/04/24 02:02 IMPRESSION: No acute pulmonary finding. Electronically Signed: Juan Luis German MD at 3:17 EDT Reading Location ID and State: [facility] / [place] Tel , Service support , Discharge Plan Triage Chief Complaint: Dizziness Other Complaint: Cold Sx Mental Health ED Provider: Sam Pearl Dx/Rx/DC Orders Clinical Impression: Acute cystitis without hematuria, URI (upper respiratory infection), Diabetes mellitus with hyperglycemia, Subjective visual disturbance, Migraine headache Instructions: ED Cystitis Female Adult Prescriptions: New sulfamethoxazole-trimethoprim [sulfamethoxazole-trimethoprim] 800-160 mg tablet 1 tab PO BID Qty: 6 0RF No Action (DME) blood sugar diagnostic [Blood Glucose Test] Strip See Rx Instructions .ROUTE .MEDSUPPLY Qty: 10 Rx Instructions: As directed ipratropium bromide 0.03 % spray,non-aerosol 2 spray INTRANASAL BID Rx Instructions: administer into each nostril omega-3 fatty acids [Fish Oil Concentrate] 1,000 mg capsule 1,000 mg PO DAILY Trulicity 0.75 mg/0.5 mL pen injector 0.75 mg subcut QWEEK Patient Comments: INJECT 1 PENaSUBCUTANEOUSLY ONCE PER WEEK fexofenadine [Allergy Relief (fexofenadine)] 180 mg tablet 180 mg PO DAILY levonorgestrel 17.5 mcg/24 hrs (5 yrs) 19.5 mg intrauterine device 1 device intrauterine ONCE Rx Instructions: as a single dose omeprazole 20 mg capsule,delayed release(DR/EC) 20 mg PO DAILY PRN (Reason: gerd) Patient Comments: Take 1 capsule by mouthndaily before breakfast. 1/2 hr before meal. topiramate 100 mg tablet 100 mg PO BID Patient Comments: Take 1 tablet by mouthitwice daily. gabapentin 300 mg capsule 300 mg PO BID Patient Comments: TAKE 1 CAP 3 TIMES DAILY.CIF AFTER 2 DAYS SYMPTOMS PERSIST, INCREASE TO 2 CAPS AT BEDTIME lisinopril 10 mg tablet 10 mg PO DAILY Patient Comments: Take 1 tablet by mouthEonce daily. ondansetron HCl 4 mg tablet 4 mg PO Q8H PRN (Reason: nausea) Patient Comments: TAKE 1 TABLET BY MOUTHEEVERY 8 HOURS NEEDED FOR NAUSEA OR VOMITING fluoxetine 20 mg capsule 20 mg PO DAILY Patient Comments: Take 1 capsule by mouthConce daily. albuterol sulfate 90 mcg/actuation HFA aerosol inhaler 2 puff INHALATION Q4H PRN (Reason: shortness of breath or wheezing) tizanidine 4 mg tablet 4 mg PO Q8H PRN (Reason: Muscle Spasm) Nurtec ODT 75 mg tablet,disintegrating 75 mg PO DAILY PRN (Reason: migraine headache) Primary Care Provider: Zeferino Leon Referrals: Zeferino Leon MD [Primary Care Provider] - Disposition Disposition: Home, Self Care
--- NOTE | 2024-02-04 02:02 | RAD_ITS ---
INDICATION: Cough, shortness of breath EXAMINATION/TECHNIQUE: X-RAY - XR Chest 2 Views COMPARISON: No relevant prior comparison study available FINDINGS: LINES/DEVICES: None. LUNGS: The lungs are well expanded. No consolidation, edema or effusion. No pneumothorax. MEDIASTINUM AND CARDIOVASCULAR STRUCTURES: Cardiac silhouette not enlarged. Central airways and mediastinal contour are unremarkable. BONES AND SOFT TISSUES: No acute abnormality. RAD/Chest PA and Lateral IMPRESSION: No acute pulmonary finding. Electronically Signed: Juan Luis German MD at 3:17 EDT ,
[2024-02-04] MEDS: Metoclopramide 10 MG/2 ML Vial 5 MG IV (02:15)
[2024-02-04 02:27] LABS: Mucous, Urine 0 SEEN /hpf (<or=2+)
[2024-02-04 02:31] LABS: Absolute Lymphocyte Count 2.24 X10^3/uL (0.83-4.51); Basophil# 0.05 X10^3/uL; Basophil% 0.4 % (0-1); Eosinophils% 0.9 % (0-5); Hematocrit 34.2 % (37-47); Hemoglobin 11.2 g/dL (12.0-15.0); Lymphocyte # 2.24 X10^3/ul (0.83-4.51); Lymphocyte % 19.8 % (19-41); Mean Corp Hgb Conc 32.7 g/dL (32-36); Mean Corpuscular Hgb 29.3 pg (27.0-32.0); Mean Corpuscular Volume 89.5 fL (81-99); Mean Platelet Vol. 9.2 fl (6.2-12.0); Monocyte# 0.75 X10^3/uL; Monocyte% 6.6 % (0-10); NRBC Flagged by Analyzer 0 % (0-5); Platelet Count 203 K/mm3 (150-450); RBC Distribution Width CV 13.2 % (11.6-14.6); RBC Distribution Width SD 43.2 fl (35.1-43.9); Red Blood Count 3.82 M/mm3 (4.2-5.4); White Blood Count 11.3 K/mm3 (4.4-11.0)
[2024-02-04 02:32] LABS: Color, Urine Yellow (Yellow); Glucose, Dipstick Normal (Normal); Ketone-Dipstick Negative (Negative); Leukocyte Esterase-Dipstick 100 /ul (Negative); Nitrite-Dipstick Negative (Negative); Occult Blood-Urine 10 /ul (Negative); Protein-Dipstick 15 mg/dl (Negative); Urine Bilirubin Dipstick Negative (Negative); Urine Clarity Clear (Clear); Urine Urobilinogen Normal (Normal)
[2024-02-04 02:45] LABS: Red Blood Cells-Urine 0-5 SEEN /hpf (0-5); Squamous Epithelial Cells - UA 0-5 SEEN /hpf (5-10); White Blood Cells 10-25 SEEN /hpf (0-5)
[2024-02-04 02:46] LABS: Bacteria 4+ /hpf (None Seen)
[2024-02-04 02:51] LABS: Anion Gap 8 (5-15); BUN 13 mg/dL (7-18); Calcium,Total 8.4 mg/dL (8.5-10.1); Chloride 106 mmol/L (98-107); Creatinine, Serum 0.87 mg/dL (0.55-1.02); EST Glomerular Filtration Rate 76 mL/min (>60); Est Glom Filt Rate - Afr Amer 92 mL/min (>60); Estimated Creatinine Clearance 116.68 ml/min; Glucose 246 mg/dL (74-106); Potassium 3.6 mmol/L (3.5-5.1); Sodium Level 135 mmol/L (136-145)
[2024-02-04] MEDS: Smz/Tmp Ds Tablet 1 TABLET PO (03:59)
[2024-02-04 04:03] VITALS: BP 107/56; PULSE 59; RESP 16; TEMP 36.6; O2SAT 100
== END 2024-02-04 04:04 | disposition home or self-care (01) ==
PROVIDERS: Emergency Provider Emergency Medicine; PCP Family Medicine; Visit Provider Emergency Medicine
DX: R42 Dizziness and giddiness (principal); E11.65 Type 2 diabetes mellitus with hyperglycemia; N30.00 Acute cystitis without hematuria; J06.9 Acute upper respiratory infection, unspecified; G43.909 Migraine, unspecified, not intractable, without status migrainosus; I10 Essential (primary) hypertension; Z79.85 Long-term (current) use of injectable non-insulin antidiabetic drugs; Z79.899 Other long term (current) drug therapy; Z90.49 Acquired absence of other specified parts of digestive tract; H53.9 Unspecified visual disturbance
CPT/HCPCS: 71046; 80048; 81001; 85025; 87077; 87086; 87088; 87186; 87631; 99284; A4216

== ENCOUNTER → 2024-07-04 | Outpatient (CLI) | payer OTHER, SELFPAY ==
[2024-07-04 08:42] LABS: Absolute Lymphocyte Count 2.74 X10^3/uL (0.83-4.51); Absolute Neutrophil Count 4.8 X10^3/uL (2.0-7.7); Basophil# 0.07 X10^3/uL; Basophil% 0.8 % (0-1); Eosinophil# 0.22 X10^3/uL; Eosinophils% 2.6 % (0-5); Hemoglobin 13.1 g/dL (12.0-15.0); Lymphocyte # 2.74 X10^3/ul (0.83-4.51); Lymphocyte % 32.5 % (19-41); Mean Corp Hgb Conc 33.6 g/dL (32-36); Mean Corpuscular Hgb 31.2 pg (27.0-32.0); Mean Corpuscular Volume 92.9 fL (81-99); Mean Platelet Vol. 9.2 fl (6.2-12.0); Monocyte# 0.43 X10^3/uL; Monocyte% 5.1 % (0-10); NRBC Flagged by Analyzer 0 % (0-5); Neutrophil # 4.77 X10^3/uL (2.7-7.7); Neutrophil % 56.7 % (47-70); Platelet Count 196 K/mm3 (150-450); RBC Distribution Width SD 47.2 fl (35.1-43.9); White Blood Count 8.4 K/mm3 (4.4-11.0)
[2024-07-04 09:06] LABS: ALB/GLOB Ratio 0.9 RATIO (0.9-2.4); AST(SGOT) 32 U/L (15-37); Alanine Aminotransfer ALT/SGPT 41 U/L (13-56); Albumin, Serum 3.6 g/dL (3.2-5.0); Alkaline Phosphatase 96 U/L (45-117); Anion Gap 8 (5-15); BUN 11 mg/dL (7-18); BUN/Creat Ratio 13.9 RATIO (10-20); Calcium,Total 8.9 mg/dL (8.5-10.1); Chloride 107 mmol/L (98-107); Cholesterol 195 mg/dL (200); Creatinine, Serum 0.79 mg/dL (0.55-1.02); EST Glomerular Filtration Rate 85 mL/min (>60); Est Glom Filt Rate - Afr Amer 103 mL/min (>60); Globulin 3.9 g/dL (2.2-4.2); Glucose 186 mg/dL (74-106); High Density Lipoprotein 35 mg/dL; Potassium 3.8 mmol/L (3.5-5.1); Protein, Total 7.5 g/dL (6.4-8.2); Sodium Level 137 mmol/L (136-145); Triglycerides 274 mg/dL; Very Low Density Lipoprotein 55 mg/dL (5-40)
[2024-07-04 09:36] LABS: Hemoglobin A1c 6.7 % (3.8-5.6)
[2024-07-04 10:37] LABS: Microalbumin:Creatinine Ratio 93.3 mg/g CRE (<30 mg/g CRE)
== END | disposition home or self-care (01) ==
LOC: LAB 08:14
PROVIDERS: PCP Family Medicine; Referring Provider Family Medicine; Visit Provider Family Medicine
DX: E11.29 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 kidney complication (principal); Z79.4 Long term (current) use of insulin; R80.9 Proteinuria, unspecified
CPT/HCPCS: 36415; 80053; 80061; 82043; 82570; 83036; 85025

== ENCOUNTER → 2024-07-22 | Outpatient (CLI) | payer OTHER, SELFPAY ==
--- NOTE | 2024-07-22 15:35 | RAD_ITS ---
STUDY: X-RAY CHEST REASON FOR EXAM: Female, 44 years old. COUGH TECHNIQUE: Frontal and lateral views of the chest. COMPARISON: 02/04/2024. FINDINGS: The lungs are clear and expanded. There is no demonstrated pleural abnormality. Normal size heart. Normal mediastinum and osman. Normal visualized pulmonary arteries. Normal visualized aortic arch and descending thoracic aorta. Normal visualized thoracic spine. Normal visualized ribs, clavicles, and shoulders. There is no demonstrated abnormality of the visualized soft tissue structures of the upper abdomen. RAD/Chest PA and Lateral IMPRESSION: Normal x-ray examination of the chest. Electronically Signed: Gregorio Last MD at 22:28 EDT ,
== END | disposition home or self-care (01) ==
LOC: RAD 15:34
PROVIDERS: PCP Family Medicine; Referring Provider Family Medicine; Visit Provider Family Medicine
DX: R05.9 Cough, unspecified (principal)
CPT/HCPCS: 71046

== ENCOUNTER 2024-10-16 20:22 | Emergency (ER) | payer OTHER, SELFPAY ==
[2024-10-16 20:23] VITALS: BP 152/92; PULSE 78; RESP 18; TEMP 36.6; O2SAT 98; BMI 43.0
--- NOTE | 2024-10-16 20:36 | RAD_ITS ---
INDICATION: right hip EXAMINATION/TECHNIQUE: X-RAY - RIGHT XR Hip Unilateral with Pelvis when performed; 2-3 Views COMPARISON: Abdominal CT 02/27/2022. FINDINGS: Single frontal view the pelvis. 2 views of the right hip. BONES: Normal anatomic alignment without evidence of fracture or subluxation. No concerning bony lesion or abnormal sclerosis to suggest lesion. JOINTS: No significant degenerative change. SOFT TISSUES: IUD in place within the central pelvis. RAD/HIP, UNI W/ Pelvis 2-3 Views IMPRESSION: No acute osseous abnormality of the pelvis or right hip. Electronically Signed: Samir Brito MD at 21:27 EST ,
--- NOTE | 2024-10-16 20:36 | CT_ITS ---
INDICATION: fall EXAMINATION: CT SPINE - CT Spine Cervical W/O Contrast Injection COMPARISON: None. A radiation dose optimization technique was used for this scan. RADIATION DOSAGE (If Supplied By Facility): CTDIvol/DLP = ( 28.98 ) / ( 625.10 ) mGy/mGycm Findings: Serial CT axial images through the cervical spine, with coronal and sagittal reformatted series. BONES: No evidence of cervical spine fracture or subluxation. No concerning bony lesion or abnormal sclerosis to suggest lesion. DISCS/JOINTS: No significant degenerative change. SOFT TISSUES: Soft tissue structures are unremarkable. CT/Spine Cervical without Contras IMPRESSION: Cervical spine without evidence of acute fracture. Electronically Signed: Samir Brito MD at 21:23 EST ,
--- NOTE | 2024-10-16 20:36 | CT_ITS ---
INDICATION: fall EXAMINATION: CT BRAIN - CT Head or Brain W/O Contrast Injection TECHNIQUE: Serial CT axial images were obtained of the head without intravenous contrast. A radiation dose optimization technique was used for this scan. RADIATION DOSAGE (If Supplied By Facility): CTDIvol/DLP = ( 44.99 ) / ( 779.24 ) mGy/mGycm COMPARISON: 08/05/[address] Findings: Serial CT axial images of the head without contrast. BRAIN PARENCHYMA: Normal matias-white matter differentiation. No evidence of intraparenchymal hemorrhage or hyperattenuating extra-axial fluid collection. BONES: Paranasal sinuses are clear. SCALP/REMAINING SOFT TISSUES: Unremarkable. ASPECTS Score for Acute Strokes, if applicable: 10 CT/Brain/Head without Contrast IMPRESSION: No acute intracranial hemorrhage in this noncontrast head CT. Electronically Signed: Samir Brito MD at 21:12 EST ,
--- NOTE | 2024-10-16 20:55 | RAD_ITS ---
INDICATION: fall EXAMINATION/TECHNIQUE: X-RAY - XR Spine Lumbar 2 or 3 Views COMPARISON: None. FINDINGS: 2 views of the lumbar spine. BONES: Again is noted lower thoracic spine vertebral body anterior wedging, likely developmental. Otherwise, anatomic alignment without evidence of fracture or subluxation. No concerning bony lesion or abnormal sclerosis to suggest lesion. DISCS/JOINTS: No significant degenerative change. SOFT TISSUES: IUD in place within the central pelvis. Again is noted nephrolith in place within the left renal pelvis measuring up to 8 mm. RAD/Lumbar Spine 2 or 3 Views IMPRESSION: Unremarkable lumbar spine. If there is persistent clinical concern for spine fracture in this trauma patient, recommend dedicated lumbar spine CT. Electronically Signed: Samir Brito MD at 21:34 EST ,
[2024-10-16] MEDS: Ondansetron ODT 4 MG Tablet 8 MG PO (21:10)
[2024-10-16] MEDS: Morphine 4 MG/ML Syringe IM (21:10)
[2024-10-16 21:17] VITALS: O2SAT 98
--- NOTE | 2024-10-16 21:30 | EDS_ITS ---
HPI <FADUMO Ortiz - Last Filed: 10/16/24 21:50> History of Present Illness Chief Complaint: Fall Narrative Narrative: Patient is a 44-year-old female with history of obesity, hypertension, chronic back pain, sleep apnea who presents to the emergency department after mechanical fall while at work. 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 Patient did strike the right side of her head on a metal shelf, denies any LOC, she was able to get herself up. Patient complains of a headache, nausea, slight dizziness, neck pain, right hip pain and lower back pain. This will be Worker's Comp. PFS <FADUMO Ortiz - Last Filed: 10/16/24 21:50> [facility] Medical History Abnormal ECG Prolonged Q-T interval on ECG Microalbuminuria LETITIA (obstructive sleep apnea) Back pain 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 Nausea Left shoulder pain Pain of left scapula Left upper extremity numbness Left shoulder strain Obstructive Sleep Apnea-Hypopnea Syndrome Fatty liver Type 2 diabetes mellitus with microalbuminuria Type 2 diabetes mellitus without complication, with long-term current use of insulin History of stent into kidney Anxiety Acute cholecystitis Segmental and somatic dysfunction of cervical region Migraines Acute bronchitis Acute respiratory insufficiency Dyspnea History of obstructive sleep apnea Elevated triglycerides with high cholesterol Calculus of left kidney Nonalcoholic hepatosteatosis Hydroureter, left Hydronephrosis, left Acute kidney injury Pyelonephritis Nephrolithiasis Obesity Hypertension Type 2 diabetes mellitus Segmental and somatic dysfunction of lumbar region Vertigo Left upper quadrant abdominal pain Dysuria Urinary tract infection Segmental and somatic dysfunction of pelvic region Segmental and somatic dysfunction of thoracic region Lumbar facet arthropathy Lumbosacral spondylosis Radiculopathy of lumbosacral region Disc displacement, lumbar Degeneration of intervertebral disc of lumbosacral region Home Medications ?Medication ?Instructions ?Recorded ?Last Taken ?Type blood sugar diagnostic (Blood #10 ea 04/26/20 Unknown History Glucose Test strips) ipratropium bromide 21 mcg (0.03 2 spray intranasal BID allergies 08/23/20 08/03/23 History %) nasal spray albuterol sulfate 90 mcg/actuation 2 puff inhalation Q4H PRN 08/10/22 08/03/23 History aerosol inhaler shortness of breath or wheezing fexofenadine 180 mg tablet 180 mg PO DAILY allergies 08/10/22 08/05/23 History (Allergy Relief (fexofenadine)) levonorgestrel 17.5 mcg/24 hr (up 1 device intrauterine ONCE 08/10/22 Unknown History to 5 yrs) 19.5mg intrauterine control device tizanidine 4 mg tablet 4 mg PO Q8H PRN Muscle Spasm 08/10/22 08/04/23 History omeprazole 20 mg capsule,delayed 20 mg PO DAILY PRN gerd 08/16/22 Unknown History release topiramate 100 mg tablet 100 mg PO BID seizures 08/16/22 08/05/23 History fluoxetine 20 mg capsule 20 mg PO DAILY mental health 12/28/22 08/04/23 History gabapentin 300 mg capsule 300 mg PO BID nerve pain 12/28/22 08/05/23 History lisinopril 10 mg tablet 10 mg PO DAILY blood pressure 12/28/22 08/05/23 History ondansetron HCl 4 mg tablet 4 mg PO Q8H PRN nausea 12/28/22 Unknown History rimegepant 75 mg disintegrating 75 mg PO DAILY PRN migraine 02/04/24 Unknown History tablet (Nurtec ODT) headache semaglutide 0.25 mg or 0.5 mg (2 0.5 mg subcut QWEEK 10/16/24 Unknown History mg/3 mL) subcutaneous pen injector (Ozempic) Allergy/AdvReac Type Severity Reaction Status Date / Time Corticosteroids Allergy Hives Verified 10/16/24 20:23 (Glucocorticoids) (steroids) lidocaine AdvReac Intermediate Hives Verified 10/16/24 20:23 Family History Father Diabetes Myocardial infarction Pancreatic cancer Mother Alcohol abuse Drug abuse Grandfather Diabetes Grandmother Lung cancer Grandmother Heart disease Triple bypass surgery Surgical History History of urethral stent (~2018) Hx laparoscopic cholecystectomy (~2005) H/O: (~2005) Social History Smoking Status: Never smoker alcohol intake: never substance use type: does not use caffeine: Yes Type: coffee what type of physical activity do you participate in: walking frequency: daily seatbelt use: always do you feel safe at home: Yes ROS <FADUMO Ortiz - Last Filed: 10/16/24 21:50> ROS ED ROS Narrative Constitutional: Negative for fever, chills, weight loss, weakness Eyes: Negative for vision loss, vision change, double vision ENT: Negative for any sore throat, ear pain, congestion Cardiovascular: Negative for any chest pain, tightness, palpitations Respiratory: Negative for any cough, sputum production, hemoptysis, dyspnea, dyspnea on exertion, orthopnea Gastrointestinal: Negative for any abdominal pain, vomiting, diarrhea, constipation, blood in stool, blood in vomit. Positive for nausea : Negative for any urinary frequency, dysuria, retention, blood in urine Muscle skeletal: Positive for any neck pain, back pain, right hip pain Neurological: Negative for any syncope.positive for headache, dizziness Skin: Negative for any rashes, itching, abrasions, lacerations Psychiatric: Negative for any depression, anxiety, stress, suicidal ideation, homicidal ideation Hematologic: Negative for any excessive bruising, easy bleeding EXAM <FADUMO Ortiz - Last Filed: 10/16/24 21:50> Physical Exam Narrative Exam Narrative: Vital signs reviewed. HEET: Head normocephalic atraumatic, TMs clear bilaterally. Posterior pharynx is clear, moist mucous membranes. Nares clear bilaterally. Pupils are equal round reactive to light, negative for any hemotympanum, septal hematoma. Neck: Supple with no lymphadenopathy or tenderness. No signs of meningismus. Patient did have some pain to the lateral aspects of her neck. No step-off deformity. Cardiac: Regular rate and rhythm no murmurs gallops or rubs, equal peripheral pulses bilaterally. Respiratory: Lungs clear to auscultation bilaterally. No chest tenderness. Abdomen: Soft, nontender, nondistended. No abdominal bruit or pulsatile masses. No hepatosplenomegaly Extremities: No peripheral edema, no signs of gross trauma or deformity. Active full range of motion of all extremities. Neuro: Cranial nerves II through XII intact, no focal neurological deficits. Skin: Clean dry and intact with no rash, purpura, petechiae, vesicles or pustules. Backs/flank: No CVA tenderness, no midline spinal tenderness, no deformity. Psych: Normal mood and affect. No SI, HI or acute psychosis. Const Vital Signs: 10/16/24 20:23 10/16/24 21:17 Temperature 97.8 F Temperature Source Oral Pulse Rate 78 Respiratory Rate 18 Respiratory Effort Normal Non-Labored Respiratory Depth Normal Respiratory Pattern Normal Blood Pressure 152/92 H Blood Pressure Mean 112 Pulse Ox 98 98 Oxygen Delivery Method Room Air Room Air Positive well nourished and well developed General Appearance ED: well developed <Dr. Sam Pearl MD - Last Filed: 10/16/24 21:50> Physical Exam Const Vital Signs: 10/16/24 20:23 10/16/24 21:17 Temperature 97.8 F Temperature Source Oral Pulse Rate 78 Respiratory Rate 18 Respiratory Effort Normal Non-Labored Respiratory Depth Normal Respiratory Pattern Normal Blood Pressure 152/92 H Blood Pressure Mean 112 Pulse Ox 98 98 Oxygen Delivery Method Room Air Room Air MDM <FADUMO Ortiz - Last Filed: 10/16/24 21:50> MDM Radiography Diagnostic Testing: Clinical Impression(s) from Imaging Studies Brain CT 10/16/24 20:36 IMPRESSION: No acute intracranial hemorrhage in this noncontrast head CT. Electronically Signed: Samir Brito MD at 21:12 EST , Cervical Spine CT 10/16/24 20:36 IMPRESSION: Cervical spine without evidence of acute fracture. Electronically Signed: Samir Brito MD at 21:23 EST , Hip/Pelvis X-Ray 10/16/24 20:36 IMPRESSION: No acute osseous abnormality of the pelvis or right hip. Electronically Signed: Samir Brito MD at 21:27 EST , Lumbar Spine X-Ray 10/16/24 20:55 IMPRESSION: Unremarkable lumbar spine. If there is persistent clinical concern for spine fracture in this trauma patient, recommend dedicated lumbar spine CT. Electronically Signed: Samir Brito MD at 21:34 EST , Treatment and Re-Evaluation :: Differential diagnosis includes however is not limited to: Concussion, closed head injury, cervical strain, cervical fracture, right hip fracture, right hip contusion, hematoma, lumbar strain Patient appears generally well, vital signs are stable, patient is nontoxic- appearing. Presenting to the [facility] apartment after mechanical fall injuring her head, right hip, feeling nauseous and headache and dizziness. Patient did receive oral Zofran, IM morphine. On reevaluation, the patient was still having some pain, I then provided IM Toradol after CT of the brain was normal. All radiologic examinations were read, reviewed by the emergency department attending. From these reads, a plan of care will be put in place. CT scan of the cervical spine and brain were grossly unremarkable. X-ray of the right hip shows no acute osseous abnormality, no abnormality of the pelvis or right hip. Patient's x-ray lumbar spine showed no acute process. All proper paperwork was filled out. Patient will continue to use [id number] remedies such as Tyle nol be Profen, patient will use ice, perform gentle stretching. All questions answered, patient stable for discharge. <Dr. Sam Pearl MD - Last Filed: 10/16/24 21:50> [facility] Narrative Medical decision making narrative: I have personally performed a face to face assessment of the patient and have reviewed the BRANDIE Note. I performed a substantive portion of the visit including all aspects of the following. 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 Pain into her low ba ck and her neck as a result. The neck pain is bilateral. No loss of consciousness. Headache and nausea. No vomiting. No focal neurologic symptoms or vision changes. Exam is ambulatory. Palpable tender hematoma of right lateral hip, no groin pain with range of motion gently. No other extremity injury. Mild diffuse low back pain and mild diffuse cervical tenderness. Good range of motion. Normal neurologic exam. GCS 15. No forehead crepitance or depression. No Reynolds sign or periorbital ecchymosis. Medical Decison Making CT head I reviewed the images and the report which I agree with, negative for any acute intracranial injury. Lumbar spine 3 views of my interpretation negative for fracture, CT of the cervical spine imaging on my interpretation shows no acute fractures radiology in agreement. Right hip 3 views no acute fractures on my interpretation. Patient given medications instructions for supportive care work restrictions [employer] follow-up advised. Other additions or changes: [None] Radiography Diagnostic Testing: Clinical Impression(s) from Imaging Studies Brain CT 10/16/24 20:36 IMPRESSION: No acute intracranial hemorrhage in this noncontrast head CT. Electronically Signed: Samir Brito MD at 21:12 EST , Cervical Spine CT 10/16/24 20:36 IMPRESSION: Cervical spine without evidence of acute fracture. Electronically Signed: Samir Brito MD at 21:23 EST , Hip/Pelvis X-Ray 10/16/24 20:36 IMPRESSION: No acute osseous abnormality of the pelvis or right hip. Electronically Signed: Samir Brito MD at 21:27 EST , Lumbar Spine X-Ray 10/16/24 20:55 IMPRESSION: Unremarkable lumbar spine. If there is persistent clinical concern for spine fracture in this trauma patient, recommend dedicated lumbar spine CT. Electronically Signed: Samir Brito MD at 21:34 EST , Discharge Plan Triage Chief Complaint: Fall ED Midlevel Provider: Angel Ji ED Provider: Sam Pearl Dx/Rx/DC Orders Clinical Impression: Closed head injury without loss of consciousness, Acute cervical myofascial strain, Acute lumbar myofascial strain, Fall from slipping on wet surface, Contusion of right hip Instructions: ED Head Injury (Adult), ED Hip Contusion Prescriptions: No Action (DME) blood sugar diagnostic [Blood Glucose Test] Strip See Rx Instructions .ROUTE .MEDSUPPLY Qty: 10 Rx Instructions: As directed ipratropium bromide 0.03 % spray,non-aerosol 2 spray INTRANASAL BID Rx Instructions: administer into each nostril fexofenadine [Allergy Relief (fexofenadine)] 180 mg tablet 180 mg PO DAILY levonorgestrel 17.5 mcg/24 hrs (5 yrs) 19.5 mg intrauterine device 1 device intrauterine ONCE Rx Instructions: as a single dose omeprazole 20 mg capsule,delayed release(DR/EC) 20 mg PO DAILY PRN (Reason: gerd) Patient Comments: Take 1 capsule by mouthndaily before breakfast. 1/2 hr before meal. topiramate 100 mg tablet 100 mg PO BID Patient Comments: Take 1 tablet by mouthitwice daily. gabapentin 300 mg capsule 300 mg PO BID Patient Comments: TAKE 1 CAP 3 TIMES DAILY.CIF AFTER 2 DAYS SYMPTOMS PERSIST, INCREASE TO 2 CAPS AT BEDTIME lisinopril 10 mg tablet 10 mg PO DAILY Patient Comments: Take 1 tablet by mouthEonce daily. ondansetron HCl 4 mg tablet 4 mg PO Q8H PRN (Reason: nausea) Patient Comments: TAKE 1 TABLET BY MOUTHEEVERY 8 HOURS NEEDED FOR NAUSEA OR VOMITING fluoxetine 20 mg capsule 20 mg PO DAILY Patient Comments: Take 1 capsule by mouthConce daily. albuterol sulfate 90 mcg/actuation HFA aerosol inhaler 2 puff INHALATION Q4H PRN (Reason: shortness of breath or wheezing) tizanidine 4 mg tablet 4 mg PO Q8H PRN (Reason: Muscle Spasm) Nurtec ODT 75 mg tablet,disintegrating 75 mg PO DAILY PRN (Reason: migraine headache) Ozempic 0.25 mg or 0.5 mg (2 mg/3 mL) pen injector 0.5 mg subcut QWEEK Primary Care Provider: Zeferino Leon Referrals: [facility], [place] [Group of Physicians] - As soon as possible Zeferino Leon MD [Primary Care Provider] - Print Language: [place] Disposition Disposition: Home, Self Care
[2024-10-16] MEDS: Ketorolac 30 MG/ML Syringe IM (21:49)
[2024-10-16 21:50] VITALS: BP 137/72; PULSE 60; RESP 16; TEMP 36.7; O2SAT 95
== END 2024-10-16 22:09 | disposition home or self-care (01) ==
PROVIDERS: Emergency Provider Emergency Medicine; PCP Family Medicine; Visit Provider Emergency Medicine
DX: S09.90XA Unspecified injury of head, initial encounter (principal); E11.9 Type 2 diabetes mellitus without complications; E78.00 Pure hypercholesterolemia, unspecified; Y92.511 Restaurant or cafe as the place of occurrence of the external cause; S16.1XXA Strain of muscle, fascia and tendon at neck level, initial encounter; E66.9 Obesity, unspecified; S39.012A Strain of muscle, fascia and tendon of lower back, initial encounter; M25.551 Pain in right hip; R11.0 Nausea; G47.30 Sleep apnea, unspecified; I10 Essential (primary) hypertension; S70.01XA Contusion of right hip, initial encounter; Z90.49 Acquired absence of other specified parts of digestive tract; W01.190A Fall on same level from slipping, tripping and stumbling with subsequent striking against furniture, initial encounter; Y99.0 Civilian activity done for income or pay
CPT/HCPCS: 70450; 72100; 72125; 73502; 96372; 99283

== ENCOUNTER 2024-11-11 05:54 | Emergency (ER) | payer OTHER, SELFPAY ==
[2024-11-11 05:55] VITALS: BP 104/56; PULSE 78; RESP 18; TEMP 36.4; O2SAT 98; BMI 45.2
--- NOTE | 2024-11-11 06:18 | EKG12_ITS ---
Test Reason : Blood Pressure : */* mmHG Vent. Rate : 69 BPM Atrial Rate : 69 BPM P-R Int : 144 ms QRS Dur : 90 ms QT Int : 424 ms P-R-T Axes : 50 21 -73 degrees QTcB Int : 454 ms Normal sinus rhythm Nonspecific ST and T wave abnormality Abnormal ECG Confirmed by Jackson Keenan ([id number]), editor department PRISCILA FERRERA ([id number]) on 11/12/2024 10:16:52 AM Referred By: Isabel Confirmed By: Jackson Keenan
--- NOTE | 2024-11-11 06:19 | EX.ED.DYSGE1 ---
HPI History of Present Illness Chief Complaint: Headache Narrative Narrative: Patient is a 44-year-old female with a past medical history of LETITIA, vertigo, migraine headaches, type 2 diabetes, anxiety, nephrolithiasis who presented to the emergency department with chief complaint of headache, chills not feeling well for the last several days. States that her symptoms started on Saturday. Patient denies recent sick contacts. Patient notes that she tried to take her migraine medication and this did not help her symptoms. In the triage noted notes that she is complaining of dizziness she states that she is more lightheaded after clarification of this denies any room spinning. [facility] Medical History Abnormal ECG Prolonged Q-T interval on ECG Microalbuminuria LETITIA (obstructive sleep apnea) Back pain 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 Nausea Left shoulder pain Pain of left scapula Left upper extremity numbness Left shoulder strain Obstructive Sleep Apnea-Hypopnea Syndrome Fatty liver Type 2 diabetes mellitus with microalbuminuria Type 2 diabetes mellitus without complication, with long-term current use of insulin History of stent into kidney Anxiety Acute cholecystitis Segmental and somatic dysfunction of cervical region Migraines Acute bronchitis Acute respiratory insufficiency Dyspnea History of obstructive sleep apnea Elevated triglycerides with high cholesterol Calculus of left kidney Nonalcoholic hepatosteatosis Hydroureter, left Hydronephrosis, left Acute kidney injury Pyelonephritis Nephrolithiasis Obesity Hypertension Type 2 diabetes mellitus Segmental and somatic dysfunction of lumbar region Vertigo Left upper quadrant abdominal pain Dysuria Urinary tract infection Segmental and somatic dysfunction of pelvic region Segmental and somatic dysfunction of thoracic region Lumbar facet arthropathy Lumbosacral spondylosis Radiculopathy of lumbosacral region Disc displacement, lumbar Degeneration of intervertebral disc of lumbosacral region Home Medications ?Medication ?Instructions ?Recorded ?Last Taken ?Type blood sugar diagnostic (Blood #10 ea 04/26/20 Unknown History Glucose Test strips) ipratropium bromide 21 mcg (0.03 2 spray intranasal BID allergies 08/23/20 08/03/23 History %) nasal spray albuterol sulfate 90 mcg/actuation 2 puff inhalation Q4H PRN 08/10/22 08/03/23 History aerosol inhaler shortness of breath or wheezing fexofenadine 180 mg tablet 180 mg PO DAILY allergies 08/10/22 08/05/23 History (Allergy Relief (fexofenadine)) levonorgestrel 17.5 mcg/24 hr (up 1 device intrauterine ONCE 08/10/22 Unknown History to 5 yrs) 19.5mg intrauterine control device tizanidine 4 mg tablet 4 mg PO Q8H PRN Muscle Spasm 08/10/22 08/04/23 History omeprazole 20 mg capsule,delayed 20 mg PO DAILY PRN gerd 08/16/22 Unknown History release topiramate 100 mg tablet 100 mg PO BID seizures 08/16/22 08/05/23 History fluoxetine 20 mg capsule 20 mg PO DAILY mental health 12/28/22 08/04/23 History gabapentin 300 mg capsule 300 mg PO BID nerve pain 12/28/22 08/05/23 History lisinopril 10 mg tablet 10 mg PO DAILY blood pressure 12/28/22 08/05/23 History ondansetron HCl 4 mg tablet 4 mg PO Q8H PRN nausea 12/28/22 Unknown History rimegepant 75 mg disintegrating 75 mg PO DAILY PRN migraine 02/04/24 11/10/24 History tablet (Nurtec ODT) headache semaglutide 0.25 mg or 0.5 mg (2 0.5 mg subcut QWEEK 10/16/24 Unknown History mg/3 mL) subcutaneous pen injector (Ozempic) Allergy/AdvReac Type Severity Reaction Status Date / Time Corticosteroids Allergy Hives Verified 11/11/24 05:55 (Glucocorticoids) (steroids) lidocaine AdvReac Intermediate Hives Verified 11/11/24 05:55 Family History Father Diabetes Myocardial infarction Pancreatic cancer Mother Alcohol abuse Drug abuse Grandfather Diabetes Grandmother Lung cancer Grandmother Heart disease Triple bypass surgery Surgical History History of urethral stent (~2018) Hx laparoscopic cholecystectomy (~2005) H/O: (~2005) Social History Smoking Status: Never smoker alcohol intake: never substance use type: does not use caffeine: Yes Type: coffee what type of physical activity do you participate in: walking frequency: daily seatbelt use: always do you feel safe at home: Yes ROS ROS ED ROS Narrative Constitutional: Complains headache as noted above and lightheadedness, as well as chills denies any fevers Eyes: Denies changes double vision blurry vision Cardiovascular: Denies any chest pain or palpitations Respiratory: Denies coughing wheezing shortness of breath Abdomen: Denies abdominal pain nausea vomit diarrhea : Denies any urinary symptoms Neurological: Denies any numbness, weakness, tingling Musculoskeletal: States she has chronic back pain Skin: Denies any rashes or lesions EXAM Physical Exam Narrative Exam Narrative: General: Patient lying in bed rest comfortably did not appear to be in acute distress Head: Atraumatic, normocephalic Eyes: PERRL bilaterally, EOMI bilaterally, no conjunctival injection noted Neck: Soft, supple, trachea midline Cardiovascular: Regular rhythm no murmurs gallops rubs noted Respiratory: Clear to auscultation bilaterally Abdomen: Soft, nondistended, nontender to palpation can bowel sounds present x 4 Extremities: +5/5 strength noted in the bilateral upper and lower extremities, radial pulses +2/4 in the bilateral upper extremities Neurological: Patient following commands knew that she was at [facility] year is 2023. NIH of 0 GCS 15. Patient completed finger-nose test bilaterally for any difficulty Skin: Warm, dry, intact Const Vital Signs: 11/11/24 05:55 Temperature 97.5 F L Temperature Source Oral Pulse Rate 78 Respiratory Rate 18 Blood Pressure 104/56 L Blood Pressure Mean 72 Pulse Ox 98 Oxygen Delivery Method Room Air MDM MDM MDM Narrative Medical decision making narrative: Patient is a 44-year-old female who presented to the emerged part with a chief complaint of headache, lightheadedness and not feeling well with chills. On the differential diagnose includes but not limited to influenza, COVID, migraine headache, tension headache, dehydration, UTI. Once workup is obtained and reviewed she will be reevaluated. Patient be given IV fluids, Reglan, Toradol. Patient CBC reviewed and was largely unremarkable no evidence leukocytosis white blood count normal at 7.8, hemoglobin stable 11.4, plate count was noted be 108. Patient's sodium was 135, potassium was low indicating hypokalemia at 2.6 she will be given 40 mill equivalents orally and 40 mill equivalents and a liter of normal saline, creatinine was elevated 1.12. Patient's glucose was noted to 33, anion gap normal at 6. Patient's AST and ALT were 16 and 29 respectively, urinalysis reviewed showed no evidence of infection 500 leukocyte esterase and negative nitrites 10-25 white blood cells but no bacteria she does not have any urinary symptoms this was sent for culture. Patient's EKG reviewed and independently interpreted myself showed sinus rhythm with a rate of 69 bpm. Patient's respiratory swab still pending. On reevaluation the patient she states that her headache is much improved however she states that she feels very lightheaded if she tries to get up. Patient states that once again her symptoms started on Saturday and have not improved therefore she came here for further evaluation management. Patient's case will be signed out to oncoming provider to reassess the patient after IV fluids and potassium supplementation given. Lab Data Labs: Laboratory Results - last 24 hr 11/11/24 11/11/24 06:30 06:37 WBC 7.8 RBC 3.58 L Hgb 11.4 L Hct 33.1 L MCV 92.5 MCH 31.8 MCHC 34.4 RDW Std Deviation 46.7 H RDW Coeff of [place]zel 13.7 Plt Count 108 L MPV 9.6 Immature Gran % (Auto) 1.200 H Neut % (Auto) 83.8 H Lymph % (Auto) 9.2 L [place] % (Auto) 4.2 Eos % (Auto) 1.2 Baso % (Auto) 0.4 Absolute Neuts (auto) 6.5 Absolute Lymphs (auto) 0.72 L Nucleated RBC % 0 Sodium 135 L Potassium 2.6 L* Chloride 102 Carbon Dioxide 28.0 Anion Gap 6 BUN 11 Creatinine 1.12 H Estim Creat Clear Calc 92.31 Est GFR (MDRD) Af Amer 69 Est GFR (MDRD) Non-Af 57 L BUN/Creatinine Ratio 9.8 L Glucose 233 H Calcium 8.2 L Total Bilirubin 0.90 AST 16 ALT 29 Alkaline Phosphatase 79 Total Protein 6.6 Albumin 2.6 L Globulin 4.0 Albumin/Globulin Ratio 0.6 L Urine Color Yellow Urine Clarity Sl. Cloudy Urine pH 6.5 Ur Specific [place] 1.010 Urine Protein 100 H Urine Glucose (UA) Normal Urine Ketones 5 H Urine Occult Blood 150 H Urine Nitrite Negative Urine Bilirubin Negative Urine Urobilinogen Normal Ur Leukocyte Esterase 500 H Urine RBC 0-5 SEEN Urine WBC 10-25 SEEN Ur Squamous Epith Cells 0-5 SEEN Urine Bacteria RARE Urine Mucus 0 SEEN Discharge Plan Triage Chief Complaint: Headache Other Complaint: Dizziness ED Provider: Buddy Hall Dx/Rx/DC Orders Prescriptions: No Action (DME) blood sugar diagnostic [Blood Glucose Test] Strip See Rx Instructions .ROUTE .MEDSUPPLY Qty: 10 Rx Instructions: As directed ipratropium bromide 0.03 % spray,non-aerosol 2 spray INTRANASAL BID Rx Instructions: administer into each nostril fexofenadine [Allergy Relief (fexofenadine)] 180 mg tablet 180 mg PO DAILY levonorgestrel 17.5 mcg/24 hrs (5 yrs) 19.5 mg intrauterine device 1 device intrauterine ONCE Rx Instructions: as a single dose omeprazole 20 mg capsule,delayed release(DR/EC) 20 mg PO DAILY PRN (Reason: gerd) Patient Comments: Take 1 capsule by mouthndaily before breakfast. 1/2 hr before meal. topiramate 100 mg tablet 100 mg PO BID Patient Comments: Take 1 tablet by mouthitwice daily. gabapentin 300 mg capsule 300 mg PO BID Patient Comments: TAKE 1 CAP 3 TIMES DAILY.CIF AFTER 2 DAYS SYMPTOMS PERSIST, INCREASE TO 2 CAPS AT BEDTIME lisinopril 10 mg tablet 10 mg PO DAILY Patient Comments: Take 1 tablet by mouthEonce daily. ondansetron HCl 4 mg tablet 4 mg PO Q8H PRN (Reason: nausea) Patient Comments: TAKE 1 TABLET BY MOUTHEEVERY 8 HOURS NEEDED FOR NAUSEA OR VOMITING fluoxetine 20 mg capsule 20 mg PO DAILY Patient Comments: Take 1 capsule by mouthConce daily. albuterol sulfate 90 mcg/actuation HFA aerosol inhaler 2 puff INHALATION Q4H PRN (Reason: shortness of breath or wheezing) tizanidine 4 mg tablet 4 mg PO Q8H PRN (Reason: Muscle Spasm) Nurtec ODT 75 mg tablet,disintegrating 75 mg PO DAILY PRN (Reason: migraine headache) Ozempic 0.25 mg or 0.5 mg (2 mg/3 mL) pen injector 0.5 mg subcut QWEEK Primary Care Provider: Zeferino Leon Referrals: Zeferino Leon MD [Primary Care Provider] - Print Language: Palauan
[2024-11-11] MEDS: Ketorolac 15 MG/ML Vial IV (06:37)
[2024-11-11] MEDS: 0.9% Normal Saline (1000mL) 1,000 ML 999 ML IV (06:37)
[2024-11-11] MEDS: Metoclopramide 10 MG/2 ML Vial IV (06:37)
[2024-11-11 06:48] LABS: Mucous, Urine 0 SEEN /hpf (<or=2+)
[2024-11-11 06:52] LABS: Absolute Lymphocyte Count 0.72 X10^3/uL (0.83-4.51); Absolute Neutrophil Count 6.5 X10^3/uL (2.0-7.7); Basophil# 0.03 X10^3/uL; Basophil% 0.4 % (0-1); Eosinophil# 0.09 X10^3/uL; Eosinophils% 1.2 % (0-5); Hematocrit 33.1 % (37-47); Hemoglobin 11.4 g/dL (12.0-15.0); Lymphocyte # 0.72 X10^3/ul (0.83-4.51); Lymphocyte % 9.2 % (19-41); Mean Corp Hgb Conc 34.4 g/dL (32-36); Mean Corpuscular Hgb 31.8 pg (27.0-32.0); Mean Corpuscular Volume 92.5 fL (81-99); Mean Platelet Vol. 9.6 fl (6.2-12.0); Monocyte# 0.33 X10^3/uL; Monocyte% 4.2 % (0-10); NRBC Flagged by Analyzer 0 % (0-5); Neutrophil # 6.53 X10^3/uL (2.7-7.7); Neutrophil % 83.8 % (47-70); Platelet Count 108 K/mm3 (150-450); RBC Distribution Width CV 13.7 % (11.6-14.6); RBC Distribution Width SD 46.7 fl (35.1-43.9); Red Blood Count 3.58 M/mm3 (4.2-5.4); White Blood Count 7.8 K/mm3 (4.4-11.0)
[2024-11-11 06:52] LABS: Color, Urine Yellow (Yellow); Glucose, Dipstick Normal (Normal); Ketone-Dipstick 5 mg/dl (Negative); Leukocyte Esterase-Dipstick 500 /ul (Negative); Nitrite-Dipstick Negative (Negative); Occult Blood-Urine 150 /ul (Negative); Protein-Dipstick 100 mg/dl (Negative); Urine Bilirubin Dipstick Negative (Negative); Urine Clarity Sl. Cloudy (Clear); Urine Urobilinogen Normal (Normal); Urine pH 6.5 (5.0 - 8.0)
[2024-11-11 06:59] LABS: Bacteria RARE /hpf (None Seen); Red Blood Cells-Urine 0-5 SEEN /hpf (0-5); Squamous Epithelial Cells - UA 0-5 SEEN /hpf (5-10); White Blood Cells 10-25 SEEN /hpf (0-5)
[2024-11-11 07:35] LABS: ALB/GLOB Ratio 0.6 RATIO (0.9-2.4); AST(SGOT) 16 U/L (15-37); Alanine Aminotransfer ALT/SGPT 29 U/L (13-56); Albumin, Serum 2.6 g/dL (3.2-5.0); Alkaline Phosphatase 79 U/L (45-117); Anion Gap 6 (5-15); BUN 11 mg/dL (7-18); BUN/Creat Ratio 9.8 RATIO (10-20); Calcium,Total 8.2 mg/dL (8.5-10.1); Chloride 102 mmol/L (98-107); Creatinine, Serum 1.12 mg/dL (0.55-1.02); EST Glomerular Filtration Rate 57 mL/min (>60); Est Glom Filt Rate - Afr Amer 69 mL/min (>60); Estimated Creatinine Clearance 92.31 ml/min; Glucose 233 mg/dL (74-106); Potassium 2.6 mmol/L (3.5-5.1); Protein, Total 6.6 g/dL (6.4-8.2); Sodium Level 135 mmol/L (136-145)
[2024-11-11 07:55] VITALS: BP 102/63; PULSE 62; RESP 24; O2SAT 97
[2024-11-11 07:55] LABS: Magnesium 1.7 mg/dL (1.6-2.6)
[2024-11-11] MEDS: Potassium Chloride 40 MEQ in 0.9% Normal Saline (1000mL) 1,000 ML 250 MEQ IV (08:12)
[2024-11-11] MEDS: Potassium Chloride Oral Soln 20 MEQ/15 ML UDC 40 MEQ PO (08:12)
[2024-11-11 09:00] VITALS: BP 109/56; PULSE 69; RESP 18; O2SAT 99
[2024-11-11 11:00] VITALS: BP 108/60; PULSE 59; RESP 14; O2SAT 98
[2024-11-11 12:34] VITALS: PULSE 74; RESP 20; O2SAT 100
== END 2024-11-11 12:34 | disposition home or self-care (01) ==
PROVIDERS: Emergency Provider Emergency Medicine; PCP Family Medicine; Visit Provider Emergency Medicine
DX: R51.9 Headache, unspecified (principal); E11.9 Type 2 diabetes mellitus without complications; R42 Dizziness and giddiness; E78.00 Pure hypercholesterolemia, unspecified; I10 Essential (primary) hypertension; F41.9 Anxiety disorder, unspecified; G47.33 Obstructive sleep apnea (adult) (pediatric); Z79.899 Other long term (current) drug therapy; Z90.49 Acquired absence of other specified parts of digestive tract; M54.9 Dorsalgia, unspecified; G89.29 Other chronic pain
CPT/HCPCS: 80053; 81001; 83735; 85025; 87086; 87088; 87631; 93005; 96361; 96374; 96375; 99284; A4216

== ENCOUNTER → 2024-12-11 | Outpatient (CLI) | payer OTHER, SELFPAY ==
--- NOTE | 2024-12-11 11:47 | RAD_ITS ---
EXAM: XR Chest, 2 Views CLINICAL INDICATION: TECHNIQUE: Frontal and lateral views of the chest. COMPARISON: No relevant prior studies available. FINDINGS: LUNGS AND PLEURAL SPACES: Unremarkable. No consolidation. No pneumothorax. HEART: Unremarkable. No cardiomegaly. MEDIASTINUM: Unremarkable. Normal mediastinal contour. BONES/JOINTS: Unremarkable. No acute fracture. RAD/Chest PA and Lateral IMPRESSION: No acute cardiopulmonary process. Reading Location: [facility]
[2024-12-11 13:03] LABS: ALB/GLOB Ratio 0.8 RATIO (0.9-2.4); AST(SGOT) 40 U/L (15-37); Alanine Aminotransfer ALT/SGPT 53 U/L (13-56); Albumin, Serum 3.7 g/dL (3.2-5.0); Alkaline Phosphatase 84 U/L (45-117); Anion Gap 7 (5-15); BUN 9 mg/dL (7-18); BUN/Creat Ratio 11.5 RATIO (10-20); Calcium,Total 8.8 mg/dL (8.5-10.1); Chloride 107 mmol/L (98-107); Creatinine, Serum 0.78 mg/dL (0.55-1.02); EST Glomerular Filtration Rate 86 mL/min (>60); Est Glom Filt Rate - Afr Amer 104 mL/min (>60); Globulin 4.5 g/dL (2.2-4.2); Glucose 109 mg/dL (74-106); Potassium 3.9 mmol/L (3.5-5.1); Protein, Total 8.2 g/dL (6.4-8.2); Sodium Level 137 mmol/L (136-145)
== END | disposition home or self-care (01) ==
LOC: RAD 11:47
PROVIDERS: PCP Family Medicine; Referring Provider Nurse Practitioner Family; Visit Provider Nurse Practitioner Family
DX: J40 Bronchitis, not specified as acute or chronic (principal); E87.6 Hypokalemia
CPT/HCPCS: 36415; 71046; 80053

== ENCOUNTER → 2025-01-28 | Outpatient (CLI) | payer OTHER, SELFPAY ==
[2025-01-28 08:06] LABS: Hemoglobin A1c 6.6 % (<=5.6)
[2025-01-28 08:15] LABS: Anion Gap 11 (5-15); BUN 14 mg/dL (4-19); BUN/Creat Ratio 18.5 RATIO (10-20); Carbon Dioxide 21.2 mmol/L (21.0-32.0); Chloride 105 mmol/L (98-108); Creatinine, Serum 0.77 mg/dL (0.70-1.20); EST Glomerular Filtration Rate 98 (>60); Glucose 185 mg/dL (70-99); Potassium 4.2 mmol/L (3.3-5.1); Sodium Level 137 mmol/L (133-145)
== END | disposition home or self-care (01) ==
LOC: LAB 06:16
PROVIDERS: PCP Family Medicine; Referring Provider Family Medicine; Visit Provider Family Medicine
DX: I10 Essential (primary) hypertension (principal); E11.29 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 kidney complication; Z79.4 Long term (current) use of insulin; R80.9 Proteinuria, unspecified
CPT/HCPCS: 36415; 80048; 83036

== ENCOUNTER → 2025-03-11 | Outpatient (CLI) | payer OTHER, SELFPAY ==
--- NOTE | 2025-03-11 12:44 | RAD_ITS ---
PROCEDURE: SHOULDER MIN 2 VIEWS 03/11/2025 REASON FOR EXAM: PAIN TECHNIQUE: Five views of the left shoulder COMPARISON: Left shoulder x-ray dated 05/03/2021. FINDINGS: The left shoulder is in anatomic alignment. There is no fracture or dislocation seen. No significant osteoarthritis is seen. RAD/Shoulder min 2 Views IMPRESSION: Unremarkable left shoulder series. Reading Location: [facility]
== END | disposition home or self-care (01) ==
LOC: RAD 12:44
PROVIDERS: PCP Family Medicine; Referring Provider Orthopaedic Surgery Sports Medicine; Visit Provider Orthopaedic Surgery Sports Medicine
DX: M25.512 Pain in left shoulder (principal)
CPT/HCPCS: 73030

== ENCOUNTER → 2025-04-17 | Outpatient (CLI) | payer OTHER, SELFPAY ==
--- OUTSIDE RECORDS SUMMARY | 2025-04-17 12:01 | XMS RPT_ITS | CCD ---
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 Ivette Grimes Primary Care Provider Dr. Ivette Grimes Referring Provider Dr. Bibiana Rehman Attending Provider [phone] Dr. Munir Siddiqui Attending Provider Dr. Marin Villalpando Attending Provider [phone] Dr. Munir Lucas Attending Provider Dr. Sam Greene Referring Provider Ivette Grimes MD Primary Care Provider [facility], [place] Unavailable Kait [facility], Keti Unavailable Dr. Ivette Grimes Primary Care Provider Dr. Ivette Grimes Referring Provider Dr. Bibiana Rehman Attending Provider [phone] Ivette Grimes MD Primary Care Provider Dr. Ivette Grimes Primary Care Provider Dr. Ivette Grimes Referring Provider Dossi, Dr. Mccarty Attending Provider [phone] Dr. Primo Ceron Attending Provider Sydney, Dr. Mcgarry Primary Care Provider [place], Dr. Mcgarry Referring Provider Dossi, Dr. Mccarty Attending Provider [phone] Cesar, Dr. Churchill Attending Provider [place], Dr. Mcgarry Primary Care Provider [place], Dr. Mcgarry Referring Provider Dossi, Dr. Mccarty Attending Provider [phone] [place], Dr. Mcgarry Primary Care Provider [place], Dr. Mcgarry Referring Provider Dossi, Dr. Mccarty Attending Provider [phone] Dr. Primo Ceron Attending Provider Cesar, Dr. Churchill Attending Provider [phone] [place] Ivette SHEARER Primary Care Provider [facility], [place] Unavailable [place], Dr. Mcgarry Primary Care Provider [phone] [place], Dr. Mcgarry Referring Provider Dossi, Dr. Mccarty Attending Provider [phone] Ernesto SHEARER, Jemal Unavailable [place], Dr. Mcgarry Primary Care Provider [place], Dr. Mcgarry Referring Provider Dossi, Dr. Mccarty Attending Provider [phone] [place], Dr. Mcgarry Primary Care Provider Sydney, Dr. Mcgarry Referring Provider Dossi, Dr. Mccarty Attending Provider [phone] Jess DENNIS, FADUMO Ba Attending Provider Jyoti, Dr. Banuelos Attending Provider [phone] ELLE SANCHEZ Attending Unavailable SAM GREENE Referring Unavailable SYDNEY, IVETTE James Primary Care Unavailable SANCHEZ, ELLE Attending Unavailable SANCHEZ, ELLE Referring Unavailable SYDNEY, IVETTE James Primary Care Unavailable ADELINA MASON Attending Unavailable SANCHEZ, ELLE Referring Unavailable SYDNEY, IVETTE James Primary Care Unavailable ADELINA MASON Attending Unavailable ADELINA MASON Referring Unavailable SYDNEY, IVETTE James Primary Care Unavailable ADELINA MASON Attending Unavailable SYDNEY, IVETTE James Primary Care Unavailable SANCHEZ, ELLE Attending Unavailable ADELINA MASON Referring Unavailable SYDNEY, IVETTE James Primary Care Unavailable SANCHEZ, ELLE Admitting Unavailable SANCHEZ, ELLE Attending Unavailable SYDNEY, IVETTE James Primary Care Unavailable [place], Dr. Mcgarry Primary Care Provider [place], Dr. Mcgarry Referring Provider Dossi, Dr. Mccarty Attending Provider [phone] [place], Dr. Mcgarry Primary Care Provider [place], Dr. Mcgarry Referring Provider Dossi, Dr. Mccarty Attending Provider [phone] [place], Dr. Mcgarry Primary Care Provider [place], Dr. Mcgarry Referring Provider Dossi, Dr. Mccarty Attending Provider [phone] Sydney, Dr. Mcgarry Primary Care Provider [place], Dr. Mcgarry Referring Provider Dossi, Dr. Mccarty Attending Provider [phone] [place], Dr. Mcgarry Primary Care Provider [place], Dr. Mcgarry Referring Provider Dossi, Dr. Mccarty Attending Provider [phone] Referred, Self Primary Care Provider Unavailabl e Referred, Self Referring Provider Unavailable [facility], [place] Unavailable Dossi, Dr. Mccarty Attending Provider [phone] Referred, Self Primary Care Provider Unavailabl e Referred, Self Referring Provider Unavailable [place], Dr. Mcgarry Primary Care Provider [facility], Dr. Banuelos Attending Provider [facility], Dr. Sosa Chirinos Referring Provider Dr. Niurka Kendall Emergency Provider Vanessa, Dr. Sosa Chirinos Admit Provider [place], Dr. Sosa Chirinos Attending Provider [place], Dr. Sosa Chirinos Other Provider Sydney, Dr. Mcgarry Referring Provider Ori, Dr. Mccarty Attending Provider Dossi, Dr. Mccarty Attending Provider [phone] Sydney, Dr. Mcgarry Primary Care Provider Osmany, Dr. Tillman Attending Provider Sydney, Dr. Mcgarry Primary Care Provider Sydney, Dr. Mcgarry Referring Provider Dr. Primo Ceron Attending Provider Ivette Grimes MD Primary Care Provider [facility], [place] Unavailable Haagen TRANSMITTER SUPERVISOR.ELECTROTYPER HELPER, Cindy Unavailable Suppan TRANSMITTER SUPERVISOR.ELECTROTYPER HELPER, Lubna A Unavailable [phone] [place] TRANSMITTER SUPERVISOR.ELECTROTYPER HELPER, [place] A Unavailable Suppan TRANSMITTER SUPERVISOR.ELECTROTYPER HELPER, Lubna A Unavailable [phone] Dr. Ivette Grimes MD Primary Care Provider Dr. Sam Pearl MD Attending Provider Dr. Sam Pearl MD Emergency Provider Dr. Ivette Grimes MD Referring Provider Dossi CONCEPCIÓN, Dr. Mccarty Attending Provider Dr. Buddy Hall DO Attending Provider Dr. Buddy Hall DO Emergency Provider Tanya SLITTING MACHINE OPERATOR-CJenni Attending Provider Tanya SLITTING MACHINE OPERATOR-CJenni Referring Provider Dr. Ivette Grimes MD Attending Provider Sydney SHEARER, Dr. Mcgarry Primary Care Provider [phone] Sydney SHEARER, Dr. Mcgarry Referring Provider Ori BEEBE, Dr. Mccarty Attending Provider [phone] Junaid SHEARER, Brett Attending Provider Junaid SHEARER, Brett Referring Provider SYDNEY, IVETTE James Attending Unavailable SYDNEY, IVETTE J Primary Care Unavailable SYDNEY, IVETTE J Attending Unavailable SYDNEY, IVETTE J Primary Care Unavailable AMANDA ARTEAGA Attending Unavailable SYDNEY, IVETTE James Primary Care Unavailable SYDNEY, IVETTE James Primary Care Unavailable SYDNEY, IVETTE James Attending Unavailable SYDNEY, IVETTE J Primary Care Unavailable SYDNEY, IVETTE J Attending Unavailable SYDNEY, IVETTE J Primary Care Unavailable SYDNEY, IVETTE J Attending Unavailable FATUMA BECKFORD Attending Unavailable FATUMA BECKFORD Referring Unavailable SYDNEY, IVETTE J Primary Care Unavailable SYDNEY, IVETTE James Attending Unavailable SYDNEY, IVETTE J Primary Care Unavailable SYDNEY, IVETTE James Attending Unavailable SYDNEY, IVETTE J Primary Care Unavailable JENNI MARTÍNEZ Attending Unavailabl e SYDNEY, IVETTE James Primary Care Unavailable Brett Quiroga Attending Unavailable [place], Ivette Referring Unavailable Sydney, Ivette Primary Care Unavailable DossiBibiana Attending Unavailable Sydney, Ivette Referring Unavailable [place], Ivette Primary Care Unavailable Sydney, Ivette Referring Unavailable [place], Ivette Primary Care Unavailable DosBibiana virgen Attending Unavailable [place], Ivette Referring Unavailable [place], Ivette Primary Care Unavailable Bibiana Rehman Attending Unavailable [place], Ivette Referring Unavailable [place], Ivette Attending Unavailable Sydney, Ivette Primary Care Unavailable [place], Ivette Referring Unavailable [place], Ivette Attending Unavailable [place], Ivette Primary Care Unavailable Jenni Martínez Referring Unavailable Jenni Martínez Attending Unavailable [place], Ivette Primary Care Unavailable [place], Ivette Referring Unavailable [place], Ivette Attending Unavailable [place], Ivette Primary Care Unavailable [place], Ivette Primary Care Unavailable Sam Pearl Attending Unavailable Sydney, Ivette Primary Care Unavailable Sydney, Ivette Referring Unavailable Jesenia Mercado NP Attending Unavailable DossiBibiana Attending Unavailable Sydney, Ivette Referring Unavailable Sydney, Ivette Primary Care Unavailable DosBibiana virgen Attending Unavailable Sydney, Ivette Referring Unavailable Sydney, Ivette Primary Care Unavailable DossiBibiana Attending Unavailable [place], Ivette Referring Unavailable Sydney, Ivette Primary Care Unavailable Dossi, Bibiana Attending Unavailable [place], Ivette Referring Unavailable [place], Ivette Primary Care Unavailable Dossi, Bibiana Attending Unavailable Sydney, Ivette Referring Unavailable Sydney, Ivette Primary Care Unavailable Dossi, Bibiana Attending Unavailable [place], Ivette Referring Unavailable [place], Ivette Primary Care Unavailable Dossi, Bibiana Attending Unavailable [place], Ivette Referring Unavailable [place], Ivette Primary Care Unavailable Dossi, Bibiana Attending Unavailable Sydney, Ivette Referring Unavailable Sydney, Ivette Primary Care Unavailable Sydney, Ivette Primary Care Unavailable Buddy Hall Attending Unavailable Sydney, Ivette Referring Unavailable [place], Ivette Attending Unavailable Sydney, Ivette Primary Care Unavailable Mollison, Brett Referring Unavailable Mollison, Brett Attending Unavailable Sydney, Ivette Primary Care Unavailable Mollison, Brett Referring Unavailable Mollison, Brett Attending Unavailable [place], Ivette Primary Care Unavailable Dossi, Bibiana Attending Unavailable Sydney, Ivette Referring Unavailable [place], Ivette Primary Care Unavailable Dossi, Bibiana Attending Unavailable [place], Ivette Primary Care Unavailable Sydney, Ivette Referring Unavailable Dossi, Bibiana Attending Unavailable Sydney, Ivette Referring Unavailable Sydney, Ivette Primary Care Unavailable Allergies Allergy Classification Reported Allergen(s) Allergy Type Date of Onset Reaction(s) Facility (20 sources) Betamethasone; Translations: [BETAMETHASONE DIPROPIONATE] Drug Allergy 12-21-19 [facility], [facility] Work Phone: (20 sources) Lidocaine; Translations: [LIDOCAINE] Drug Allergy 12-24-19 [facility] Work Phone: (7 sources) Corticosteroids Allergy to substance 01-01-20 [facility] Work Phone: (19 sources) Glucocorticoid Receptor Agonists Allergy to substance 10-16-20 [facility] (20 sources) dapagliflozin; Translations: [DAPAGLIFLOZIN] Drug Allergy 08-05-20 [facility] (20 sources) metFORMIN; Translations: [METFORMIN] Drug Allergy 08-05-20 [facility] (1 source) Corticosteroids Drug allergy (disorder) 04-05-20 [facility] (1 source) Lidocaine Drug Allergy 04-05-20 [facility] Medications Current Medications Medication Drug Class(es) Dates Sig (Normalized) Sig (Original) [id number] 200 actuat albuterol 0.09 mg/actuat metered dose inhaler (20 sources) beta2-Adrenergic Agonist Start: 08-10-2022 Albuterol Sulfate 90 mcg/actuation HFA aerosol inhaler Active 2 NMA INHALATION Q4H as needed for shortness of breath or wheezing August 10, 2022 3:01pm Start: 08-10-2022 take 1 puff(s) by in halation every four hours Albuterol Sulfate Active 2 PUFF INHALATION Q4H August 10, 2022 3:01pm Start: 02-03-2021 End: 01-22-2025 take 2 puff(s) by inhalation every four hours as needed for wheezing albuterol HFA (VENTOLIN HFA) 90 mcg/actuation inhaler Indications: SOB (shortness of breath) Inhale 2 Puffs as instructed every 4 hours as needed for wheezing/shortness of breath. 18 g 6 11/25/2024 Active Start: 10-27-2015 take 1 puff(s) by in halation every six hours as needed Albuterol Sulfate Active 1 - 2 PUFF INHALATION EVERY 6 HOURS NEEDED October 27, 2015 2:29pm Start: 10-27-2015 End: 08-10-2022 Albuterol Sulfate 1 INHALER inhaler Discontinued 1 - 2 NMA INHALATION EVERY 6 HOURS NEEDED as needed for Sob &/Or Wheezing October 27, 2015 1:00am August 10, 2022 3:09pm Start: 10-27-2015 End: 08-10-2022 take 1 puff(s) by inhalation every six hours as needed Albuterol Sulfate Discontinued 1 - 2 PUFF INHALATION EVERY 6 HOURS NEEDED October 27, 2015 1:00am August 10, 2022 3:09pm Comment on above: Inhale 2 Puffs as in structed every 4 hours as needed for Wheezing/Shortness of Breath. azithromycin 250 mg oral tablet (1 source) Macrolide Antimicrobial Start: 025 End: azithromycin (ZITHROMAX Z-TEMO) 250 mg tablet Indications: Sinobronchitis Take 2 tablets day one, then, 1 tablet daily until gone. 6 tablet 12/11/2024 12/16/2024 Active benzonatate 100 mg oral capsule (1 source) Non-narcotic Antitussive Start: End: take 1 capsule by mouth every eight hours as needed for cough and cough benzonatate (TESSALON PERLES) 100 mg capsule Indications: Acute cough Take 1 capsule by mouth three times a day as needed for up to 15 days. 45 capsule 0 06/11/2024 06/26/2024 Active BIPAP (20 sources) BIPAP Active BIPAP codeine phosphate 2 mg/ml / guaiFENesin 20 mg/ml oral solution (2 sources) Opioid Agonist Start: 12-11-2024 End: 12-18-2024 take 10 mL by mouth three times daily as needed for cough codeine-guaiFENesin (ROBITUSSIN AC) 10-100 mg/5 mL syrup Indications: Sinobronchitis Take 10 mL by mouth three times a day as needed for cough for up to 7 days. 210 mL 12/11/2024 12/18/2024 Active dapagliflozin 5 mg oral tablet (4 sources) Sodium-Glucose Cotransporter 2 Inhibitor Start: 07-10-2024 End: 07-10-2025 take 1 tablet by mouth once daily, then take 1 tablet by mouth once daily in the morning dapagliflozin propanediol (FARXIGA) 5 mg tablet Indications: Type 2 diabetes mellitus with microalbuminuria, with long-term current use of insulin (HCC) Take 1 tablet by mouth once daily. Take one daily in the morning 30 tablet 07/10/2024 08/05/2024 Discontinued doxycycline monohydrate 100 mg oral tablet (5 sources) Tetracycline-class Drug Start: 07-03-2024 End: 07-13-2024 take 1 tablet by mouth twice daily doxycycline monohydrate 100 mg tablet Indications: Bronchitis , Wheezing Take 1 tablet by mouth two times a day for 10 days. 20 tablet 07/03/2024 07/13/2024 Active fexofenadine hydrochloride 180 mg oral tablet (20 sources) Histamine-1 Receptor Antagonist Start: 12-27-2021 End: 07-05-2023 take 1 tablet by mouth once daily fexofenadine (ALMA ALLERGY) 180 mg tablet Take 1 tablet by mouth once daily. 90 tablet 3 07/05/2023 Active Start: 04-26-2020 End: 08-23-2020 take 1 tablet by mouth once daily Fexofenadine 180 mg tablet Discontinued 180 mg PO DAILY April 26, 2020 12:00am August 23, 2020 10:23am Comment on above: Take 1 tablet by [facility] once daily. FLUoxetine 20 mg oral capsule (20 sources) Serotonin Reuptake Inhibitor Start: 11-16-2022 End: 04-22-2025 take 1 capsule by mouth once daily FLUoxetine (PROZAC) 20 mg capsule Indications: Anxiety Take 1 capsule by mouth once daily. 90 capsule 1 01/22/2025 04/22/2025 Active Start: 10-12-2022 End: 11-18-2022 take 1 capsule by mouth once daily, then take 2 capsules by mouth once daily FLUoxetine (PROZAC) 10 mg capsule Take 1 capsule by mouth once daily for 7 days, THEN 2 capsules once daily. 67 capsule 1 10/12/2022 11/18/2022 Active Comment on above: Take 1 capsule by mo [facility] once daily for 7 days, THEN 2 capsules once daily. Take 1 capsule by [facility] once daily. gabapentin 300 mg oral capsule (20 sources) Anti-epileptic Agent Start: 02-28-2023 End: 06-06-2023 take 1 capsule by mouth once daily at bedtime gabapentin (NEURONTIN) 300 mg capsule Indications: Headache, unspecified headache type Take one po qhs 120 capsule 2 02/28/2023 06/06/2023 Discontinued Start: 12-28-2022 End: 07-21-2025 take 1 capsule by mouth twice daily gabapentin (NEURONTIN) 300 mg capsule Indications: Headache, unspecified headache type Take 1 capsule by mouth two times a day for 180 days. 180 capsule 1 01/22/2025 07/21/2025 Active Start: 12-28-2022 take 300 mg by mouth three times daily Gabapentin Active 300 MG PO THREE TIMES A DAY December 28, 2022 1:00am Start: 12-07-2022 End: 03-06-2023 gabapentin (NEURONTIN) 300 m g capsule Take 1 tablet in AM, afternoon and bedtime. If after 2 days symptoms persist, increase to 1 tab in AM, afternoon and 2 tabs at bedtime. 120 capsule 2 12/07/2022 02/28/2023 Discontinued Start: 01-01-2022 End: 12-28-2022 take 200 mg by mouth twice daily Gabapentin Discontinu ed 200 MG PO TWICE A DAY January 01, 2022 4:28pm December 28, 2022 3:58pm Start: 12-25-2021 End: 02-21-2023 take 2 capsules by mouth twice daily Gabapentin 100 mg capsule Discontinued 200 mg PO TWICE A DAY January 01, 2022 4:28pm December 28, 2022 3:58pm Start: 08-22-2021 End: 01-01-2022 take 1 capsule by mouth twice daily Gabapentin 100 mg capsule Discontinued 100 mg PO TWICE A DAY August 22, 2021 12:00am January 01, 2022 4:30pm Start: 12-05-2017 End: 12-30-2017 take 1 capsule by mouth twice daily at mealtime Gabapentin 300 MG capsule Discontinued 300 mg PO TWICE DAILY WITH MEALS December 05, 2017 1:00am December 30, 2017 3:46pm Start: 05-22-2017 take 1 capsule by mo [facility] three times daily GABAPENTIN 300 MG CAPS 1 po tid GABAPENTIN [id number] Jackson Brown Comment on above: Take 2 capsules by [facility] twice daily for 90 days. Take 1 tablet in AM, afternoon and bedtime. If after 2 days symptoms persist, increase to 1 tab in AM, afternoon and 2 tabs at bedtime. Take one po qhs Take 1 capsule by [facility] twice daily for 180 days. Take one po qhs ipratropium bromide 0.021 mg/actuat metered dose nasal spray (20 sources) Anticholinergic Start: 05-02-2023 Ipratropium [place] (ATROVENT) 21 mcg (0.03 %) nasal spray Use 2 Sprays in the nose every 12 hours. 30 mL 5 05/02/2023 Active Start: 08-23-2020 Ipratropium Br omide 0.03 % spray,non-aerosol Active 2 NMA INTRANASAL TWICE A DAY August 23, 2020 12:00am administer into each nostril Start: 08-23-2020 take 1 spray(s) nasa l route twice daily Ipratropium [place] Active 2 SPRAY INTRANASAL TWICE A DAY August 23, 2020 12:00am administer into each nostril Start: 03-14-2020 End: 05-01-2023 Ipratropium [place] (ATROVEN T) 0.03 % nasal spray Use 2 Sprays in the nose every 12 hours. 1 Bottle 2 03/14/2020 05/01/2023 Discontinued Comment on above: Use 2 Sprays in the nose every 12 hours. iv contrast (will be provided with radiology test) (1 source) Start: 2022 End: 2022 inject 1 dose intravenously once, then inject 1 dose intravenously once iv contrast (will be provided with radiology test) Indications: Soft tissue mass Inject 1 Each intravenously one time only for [address] Neck W IVCON No IV access, insert saline lock prior to the sedation, infusion, injection for imaging exam. Discontinue saline lock post exam. If Pt. has a central line or IVAD, may access for administration according to line specific nursing protocol. Once exam is complete flush line and de-access according to line specific nursing protocol in the CT contrast administration guidelines link. 1 Each 0 02/28/2023 02/28/2023 Active Comment on above: Inject 1 Each intrav enously one time only for [address] Neck W IVCON No IV access, insert saline lock prior to the sedation, infusion, injection for imaging exam. Discontinue saline lock post exam. If Pt. has a central line or IVAD, may access for administration according to line specific nursing protocol. Once exam is complete flush line and de-access according to line specific nursing protocol in the CT contrast administration guidelines link. levonorgestrel 0.897770 mg/hr intrauterine system (20 sources) Progestin, Progestin-containing Intrauterine Device Start: 2021 Levonorgestrel Active 1 DEVICE INTRA-UTER ONCE August 10, 2022 12:00am as a single dose Start: 04-18-2021 End: 04-17-2026 levonorgestrel (KYLEENA) 17. 5 mcg/24 hrs (5 yrs) 19.5 mg IUD Indications: Encounter for IUD insertion 1 Each by INTRAUTERINE route as directed. 1 Each 04/18/2021 04/17/2026 Active Start: 04-26-2020 End: 08-10-2022 Levonorgestrel (Jojo) 14 mc g/24 hrs (3 yrs) 13.5 mg intrauterine device Discontinued 1 NMA INTRA-UTER ONCE April 26, 2020 12:00am August 10, 2022 3:05pm as a single dose Start: 04-26-2020 End: 08-10-2022 Levonorgestrel (Jojo) 14 mc g/24 hrs (3 yrs) 13.5 mg intrauterine device Discontinued 1 DEVICE INTRA-UTER ONCE April 26, 2020 12:00am August 10, 2022 3:05pm as a single dose Start: 09-09-2017 JOJO 13.5 MG IUD LEVONORGESTREL [id number] Amparo Hitchcock MD Comment on above: 1 Each by INTRAUTERI NE route as directed. lisinopril 10 mg oral tablet (20 sources) Angiotensin Converting Enzyme Inhibitor Start: 09-07-20 take 1 tablet by mouth once daily lisinopril (ZESTRIL) 10 mg tablet Indications: Microalbuminuria , Type 2 diabetes mellitus without complication, with long-term current use of insulin (HCC) Take 1 tablet by mouth once daily. 90 tablet 3 09/07/2024 Active Start: 12-14-2022 End: 06-12-2023 take 1 tablet by mouth once daily lisinopril (ZESTRIL) 10 mg tablet Indications: Microalbuminuria , Type 2 diabetes mellitus without complication, with long-term current use of insulin (HCC) Take 1 tablet by mouth once daily. 90 tablet 3 09/07/2024 Active Start: 02-14-2019 End: 05-22-2023 take 1 tablet by mouth once daily Lisinopril 5 MG tablet Discontinued 5 mg PO DAILY February 14, 2019 12:00am December 28, 2022 4:00pm Comment on above: Take 1 tablet by ishmael once daily. Magnesium (20 sources) MAGNESIUM ORAL T enoch by mouth. Active MAGNESIUM ORAL T enoch by mouth. 0 Active Comment on above: Take by mouth. meclizine hydrochloride 25 mg oral tablet (20 sources) Antiemetic take 2 tablets by mouth once daily in the morning meclizine (ANTIVERT) 25 mg tab Take 25 mg by mouth once daily. Takes two tabs in am Active Comment on above: Take 25 mg by mouth once daily. Takes two tabs in am meloxicam 15 mg oral tablet (20 sources) Nonsteroidal Anti-inflammatory Drug Start: 03-02-20 End: 05-09-20 25 take 1 tablet by mouth once daily meloxicam (MOBIC) 15 mg tablet Indications: Intractable chronic migraine without aura and without status migrainosus , Chronic left shoulder pain Take 1 tablet by mouth once daily for 10 days. 10 tablet 03/02/2025 03/12/2025 Active Start: 06-03-2024 End: 06-13-2024 take 1 tablet by mouth once daily at mealtime meloxicam (MOBIC) 15 mg tablet Indications: Left sided sciatica Take 1 tablet by mouth once daily for 10 days. With food. 10 tablet 0 06/03/2024 06/13/2024 Active Start: 04-26-2020 End: 04-28-2020 take 1 tablet by mouth once daily as needed Meloxicam (Mobic) 15 mg tablet Discontinued 15 mg PO DAILY as needed April 28, 2020 3:01pm April 28, 2020 6:04pm nitrofurantoin, macrocrystals 25 mg / nitrofurantoin, monohydrate 75 mg oral capsule (20 sources) Nitrofuran Antibacterial Start: 09-24-2024 End: 09-29-2024 take 1 capsule by mouth twice daily at mealtime nitrofurantoin monohydrate and macrocrystal (MACROBID) 100 mg capsule Indications: Dysuria Take 1 capsule by mouth two times a day with meals for 5 days. 10 capsule 09/24/2024 09/29/2024 Active Start: 06-21-2021 End: 06-21-2021 take 1 capsule by mouth every twelve hours at mealtime Nitrofurantoin Monohyd/M-Cryst (Macrobid) 100 mg capsule Discontinued 100 mg PO Q12H 14 7 June 21, 2021 12:00am June 27, 2021 12:00am June 21, 2021 4:26pm must administer with a meal/food Herrick-3 Fatty Acids (Fish Oil Concentrate) 1,000 mg capsule (20 sources) Start: 02-21-2021 take 1 capsule by mouth once daily Herrick-3 Fatty Acids (Fish Oil Concentrate) 1,000 mg capsule Active 1000 MG PO DAILY February 21, 2021 9:19am Start: 02-21-2021 End: 10-16-2024 take 1 capsule by mouth once daily Herrick-3 Fatty Acids (Fish Oil Concentrate) 1,000 mg capsule Discontinued 1000 mg PO DAILY February 21, 2021 12:00am October 16, 2024 10:15pm Start: 02-21-2021 take 1 capsule by mo [facility] once daily Herrick-3 Fatty Acids (Fish Oil Concentrate) 1,000 mg capsule Active 1000 MG PO DAILY February 20, 2021 11:00pm Start: 02-21-2021 take 1 capsule by mo uth once daily Herrick-3 Fatty Acids (Fish Oil Concentrate) 1,000 mg capsule Active 1000 MG PO DAILY February 21, 2021 12:00am Herrick-3 Fatty Acids (FISH OIL) 500 mg cap (20 sources) Start: 10-09-2019 take 1 capsule by mouth once daily Herrick-3 Fatty Acids (FISH OIL) 500 mg cap Take 1 capsule by mouth once daily. 30 capsule 11 10/09/2019 Active Comment on above: Take 1 capsule by mo uth once daily. omeprazole 20 mg delayed release oral capsule (20 sources) Proton Pump Inhibitor Start: 11-20-2021 End: 03-27-2023 take 1 capsule by mouth once daily before breakfast omeprazole (PRILOSEC) 20 mg capsule Indications: LUQ pain Take 1 capsule by mouth daily before breakfast. 1/2 hr before meal. 90 capsule 3 03/27/2023 Active Start: 04-26-2020 End: 08-10-2022 take 1 tablet by mouth once daily Omeprazole Magnesium (Prilosec Otc) 20 mg tablet,delayed release (DR/EC) Discontinued 20 mg PO DAILY April 26, 2020 12:00am August 10, 2022 3:03pm Comment on above: Take 1 capsule by mo ut daily before breakfast. 1/2 hr before meal. ondansetron 4 mg oral tablet (20 sources) Serotonin-3 Receptor Antagonist Start: take 1 tablet by mouth every eight hours as needed for nausea ondansetron (ZOFRAN) 4 mg tablet Indications: Flank pain Take 1 tablet by mouth every 8 hours as needed for nausea/vomiting. 29 tablet 10/19/2024 Active Start: 11-30-2022 End: 02-14-2023 take 1 tablet by mouth every eight hours as needed for nausea ondansetron (ZOFRAN) 4 mg tablet Indications: Flank pain Take 1 tablet by mouth every 8 hours as needed for nausea/vomiting. 29 tablet 10/19/2024 Active Start: 04-26-2020 End: 08-10-2022 take 1 tablet by mouth every six hours as needed for nausea and vomiting Ondansetron Hcl (Zofran) 4 mg tablet Discontinued 4 mg PO EVERY 6 HOURS as needed for nausea and vomiting April 26, 2020 12:00am August 10, 2022 3:08pm Start: 03-23-2020 End: 04-26-2020 take 1 tablet by mouth every eight hours as needed for nausea Ondansetron 4 MG tablet Discontinued 4 mg PO EVERY 8 HOURS NEEDED as needed for Nausea March 23, 2020 12:00am April 26, 2020 10:15am Comment on above: Take 1 tablet by ishmael th every 8 hours as needed for nausea/vomiting. potassium chloride 20 meq powder for oral solution (20 sources) Start: 5 potassium chloride (KLOR-CON) 20 mEq packet Take 20 mEq by mouth as needed. 11/11/2024 Active Hmnddryc-Wy-Pnw-Fe -FA tab (20 sources) Start: 1 take 1 tablet by mouth once daily Ncwrjdig-Mg-Vhd-F e-FA tab Take 1 tablet by mouth once daily. 0 03/14/2011 Active Comment on above: Take 1 tablet by ishmael th once daily. rswfhoby-llk-Mh-FA 1 mg capsule (20 sources) Start: 0 take 1 capsule by mouth once daily grubbdqr-yvv-Pw-F A 1 mg capsule Active 1 CAP PO DAILY April 26, 2020 10:18am Start: 04-26-2020 End: 08-05-2023 take 1 capsule by mouth once daily ojsbgajk-fns-Jg-FA 1 mg capsule Discontinued 1 CAP PO DAILY April 25, 2020 11:00pm August 05, 2023 10:25am Start: 04-26-2020 End: 08-05-2023 take 1 capsule by mouth once daily jficqxkp-hkl-Vb-FA 1 mg capsule Discontinued 1 CAP PO DAILY April 26, 2020 12:00am August 05, 2023 11:25am Start: 04-26-2020 take 1 capsule by mo ut once daily arjopbpg-gsb-Qg-FA 1 mg capsule Active 1 CAP PO DAILY April 25, 2020 11:00pm Start: 04-26-2020 take 1 capsule by mo uth once daily bvkxzrjp-eii-Bu-FA 1 mg capsule Active 1 CAP PO DAILY April 26, 2020 12:00am rimegepant 75 mg disintegrating oral tablet (20 sources) Start: 12-26-2023 End: 09-02-2024 take 1 tablet by mouth once daily as needed rimegepant (NURTEC ODT) 75 mg disintegrating tablet Take 1 tablet by mouth once daily as needed. 8 tablet 2 09/02/2024 Active Comment on above: Take 1 tablet by ishmael once daily as needed. Semaglutide (5 sources) Start: 10-16-2024 Semaglutide (Ozempic) 0.25 mg or 0.5 mg (2 mg/3 mL) pen injector Active 0.5 mg SC EVERY WEEK October 16, 2024 1:00am semaglutide (OZEMPIC) 1 mg/dose (4 mg/3 mL) pen (12 sources) Start: 01-22-2025 End: 07-21-2025 inject 1 mg by subcutaneous injection every week semaglutide (OZEMPIC) 1 mg/dose (4 mg/3 mL) pen Indications: Type 2 diabetes mellitus with microalbuminuria, with long-term current use of insulin (HCC) Inject 1 mg subcutaneously one time a week. 3 mL 5 01/22/2025 07/21/2025 Active tiZANidine 4 mg oral tablet (20 sources) Central alpha-2 Adrenergic Agonist Start: 04-12-2025 End: 06-11-2025 take 1 tablet by mouth every eight hours as needed for muscle spasms tiZANidine (ZANAFLEX) 4 mg tablet Indications: Flank pain Take 1 tablet by mouth every 8 hours as needed (muscle spasms). 60 tablet 04/12/2025 06/11/2025 Active Start: 08-10-2022 End: 03-23-2025 take 1 tablet by mouth every eight hours as needed for muscle spasms tiZANidine (ZANAFLEX) 4 mg tablet Indications: Flank pain Take 1 tablet by mouth every 8 hours as needed (muscle spasms). 60 tablet 01/22/2025 03/23/2025 Active Start: 08-01-2022 take 1 tablet by ishmael every eight hours as needed tiZANidine (ZANAFLEX) 4 mg tablet Take 1 tablet by mouth every 8 hours as needed. 20 tablet 0 08/01/2022 Active Start: 05-15-2022 End: 07-10-2022 take 1 tablet by mouth every eight hours as needed tiZANidine (ZANAFLEX) 4 mg tablet Take 1 tablet by mouth every 8 hours as needed. 20 tablet 0 07/10/2022 Active Start: 03-05-2022 End: 04-16-2022 take 1 tablet by mouth every eight hours as needed tiZANidine (ZANAFLEX) 4 mg tablet Take 1 tablet by mouth every 8 hours as needed. 20 tablet 0 04/16/2022 Active Start: 02-05-2022 End: 03-03-2022 take 1 tablet by mouth every eight hours as needed tiZANidine (ZANAFLEX) 4 mg tablet Take 1 tablet by mouth every 8 hours as needed. 20 tablet 0 02/23/2022 03/03/2022 Discontinued Start: 01-10-2022 take 1 tablet by ishmael th every eight hours as needed tiZANidine (ZANAFLEX) 4 mg tablet Take 1 tablet by mouth every 8 hours as needed. 20 tablet 0 01/10/2022 Active Start: 05-08-2017 take 1 tablet by ishmael th three times daily as needed for muscle spasms ZANAFLEX 2 MG CAPS One tablet by mouth three times daily as needed for muscle spasms TIZANIDINE HCL [id number] Sammy Victor CAGE CASHIER-C Start: 04-29-2017 End: 08-10-2022 take 1 tablet by mouth once daily as needed for muscle spasms Tizanidine 4 MG tablet Discontinued 4 mg PO DAILY NEEDED as needed for Muscle Spasm April 29, 2017 12:00am August 10, 2022 3:09pm Start: 04-26-2017 End: 05-06-2017 ZANAFLEX 2 MG CAPS Take 1-2 tablets every 8 hours as needed. TIZANIDINE HCL [id number] Santana IRENE Comment on above: Take 1 tablet by ishmael th every 8 hours as needed. topiramate 100 mg oral tablet (20 sources) Anti-epileptic Agent Start: 07-03-2022 End: 06-23-2025 take 1 tablet by mouth twice daily topiramate (TOPAMAX) 100 mg tablet Take 1 tablet by mouth two times a day. 60 tablet 5 12/25/2024 06/23/2025 Active Start: 04-09-2022 End: 07-03-2022 topiramate (TOPAMAX) 50 mg t ablet One tab daily 90 tablet 5 04/19/2022 07/03/2022 Discontinued Start: 04-28-2020 End: 10-02-2022 take 1 tablet by mouth twice daily Topiramate 50 mg tablet Discontinued 50 mg PO TWICE A DAY 60 June 16, 2020 12:00am August 16, 2022 1:03pm Start: 04-28-2020 End: 05-05-2020 take 1 tablet by mouth twice daily Topiramate 25 mg tablet Discontinued 25 mg PO TWICE A DAY 14 April 28, 2020 12:00am May 04, 2020 12:00am May 05, 2020 12:02am Start: 09-09-2017 TROKENDI XR 20 0 MG [id number] TOPIRAMATE [id number] Amparo Hitchcock MD Start: 09-28-2016 End: 09-09-2017 TOPIRAMATE 15 MG CPSP 11/28 TOPIRAMATE [id number] Santana IRENE Comment on above: Take 1 tablet by ishmael th twice daily. Take 1 tab in AM and 2 tabs in PM. One tab daily Take 1 tablet by ishmael th two times a day. 24 hr divalproex sodium 500 mg extended release oral tablet (5 sources) Mood Stabilizer, Anti-epileptic Agent Start: 03-09-2025 divalproex ER (DEPAKOTE ER) 500 mg 24 hr tablet Indications: Intractable chronic migraine without aura and with status migrainosus Depakote ER 500 mg one tablet twice a day for the first five days, then take take one tablet once a day for the next five days, then stop using depakote 15 tablet 03/09/2025 Active Completed/Discontinued Medications Medication Drug Class(es) Dates Sig (Normalized) Sig (Original) ACETAMINOPHEN CAPS (5 sources) Start: 09-28-2016 End: 09-09-2017 TYLENOL CAPS ACETAMINOPHEN CAPS [id number] Amparo Hitchcock MD Start: 09-28-2016 TYLENOL CAPS 2 ACETAMINOPHEN CAPS [id number] Santana IRENE acetaminophen 325 mg / HYDROcodone bitartrate 5 mg oral tablet (20 sources) Opioid Agonist Start: 05-06-2019 End: 05-10-2019 Hydrocodone-Acetaminophen 1 TABLET tablet Discontinued 1 {tbl} PO EVERY 4 HOURS NEEDED as needed for Pain 10 May 06, 2019 May 07, 2019 12:00am May 10, 2019 12:09am Start: 05-06-2019 End: 05-10-2019 take 1 tablet by mouth every four hours as needed Hydrocodone-Acetaminophen Discontinued 1 TABLET PO EVERY 4 HOURS NEEDED 10 May 06, 2019 May 10, 2019 12:09am Start: 05-10-2017 End: 05-14-2017 NORCO 5-325 MG TABS Take one every 6 hours as needed. HYDROCODONE-ACETAMINOPHEN [id number] Santana IRENE acetaminophen 325 mg / oxyCODONE hydrochloride 5 mg oral tablet (20 sources) Opioid Agonist Start: 02-25-2019 End: 03-04-2019 Oxycodone-Acetaminophen 1 TABLET tablet Discontinued 1 - 2 {tbl} PO EVERY 6 HOURS NEEDED as needed for Pain 30 February 25, 2019 12:00am March 03, 2019 12:00am March 04, 2019 12:07am Start: 02-25-2019 End: 03-04-2019 take 1 tablet by mouth every six hours as needed Oxycodone-Acetaminophen Discontinued 1 - 2 TABLET PO EVERY 6 HOURS NEEDED 30 February 25, 2019 12:00am March 04, 2019 12:07am Start: 02-17-2019 End: 02-22-2019 Oxycodone-Acetaminophen (Per cocet 5-325 Mg Tablet) 1 EACH tablet Discontinued 1 NMA PO EVERY 4 HOURS NEEDED as needed for Pain 28 February 17, 2019 4:38pm February 21, 2019 12:00am February 22, 2019 12:10am amitriptyline hydrochloride 25 mg oral tablet (20 sources) Tricyclic Antidepressant Start: 03-23-2020 End: 04-26-2020 take 1 tablet by mouth at bedtime Amitriptyline 25 MG tablet Discontinued 25 mg PO AT BEDTIME March 23, 2020 12:00am April 26, 2020 10:16am amoxicillin 875 mg / clavulanate 125 mg oral tablet (20 sources) Penicillin-class Antibacterial Start: 10-27-2023 End: 12-10-2023 Amoxicillin-Pot Clavulanate 875-125 mg tablet Discontinued 1 {tbl} PO TWICE A DAY October 27, 2023 1:00am December 10, 2023 10:58am Start: 10-27-2023 End: 12-10-2023 take 1 tablet by mouth twice daily Amoxicillin-Pot Clavulanate Discontinued 1 TABLET PO TWICE A DAY October 27, 2023 1:00am December 10, 2023 10:58am Start: 02-17-2019 End: 02-25-2019 take 1 tablet by mouth every twelve hours Amoxicillin-Pot Clavulanate 875 MG tablet Discontinued 875 mg PO Q12H February 17, 2019 12:00am February 25, 2019 9:24am onabotulinumtoxina 200 unt injection (6 sources) Acetylcholine Release Inhibitor Start: 09-03-2024 End: 09-03-2024 onabotulinum toxin type A 200 Units injection (BOTOX) Start: 09-03-2024 End: 09-03-2024 inject 1 dose by intramuscular injection once 200 Units, INTRAMUSCULAR, ONCE, 1 dose, On Michelle 09/03/24 at 1300, This record documents the total dose provided to patient. See progress note for specific locations and amounts administered. Start: 04-02-2024 End: 04-02-2024 onabotulinum toxin type A 20 0 Units injection (BOTOX) Start: 04-02-2024 End: 04-02-2024 onabotulinum toxin type A 20 0 Units injection (BOTOX) Start: 12-26-2023 End: 12-26-2023 onabotulinum toxin type A 20 0 Units injection (BOTOX) Start: 05-17-2023 End: 05-17-2023 onabotulinum toxin type A 20 0 Units injection (BOTOX) 20 ml bupivacaine hydrochloride 7.5 mg/ml injection (1 source) Amide Local Anesthetic Start: 05-10-2022 End: 05-10-2022 bupivacaine(PF) 0.75 % (7.5 mg/mL) 37.5 mg injection (MARCAINE PF) Start: 05-10-2022 End: 07-07-2022 bupivacaine(PF) 0.75 % (7.5 mg/mL) 37.5 mg injection (MARCAINE PF) 24 hr buPROPion hydrochloride 150 mg extended release oral tablet (20 sources) Aminoketone Start: 02-14-2019 End: 02-17-2019 take 1 tablet by mouth once daily Bupropion Hcl 150 MG Tablet.Xl Discontinued 150 mg PO DAILY February 14, 2019 12:00am February 17, 2019 4:36pm CPAP (20 sources) Start: 04-09-2022 CPAP Indicatio ns: LETITIA (obstructive sleep apnea) Modem possibly not working. Downloads ceased last month. Please check device. 1 Each 999 04/09/2022 Active Start: 08-01-2020 CPAP Indicatio ns: LETITIA (obstructive sleep apnea) Please fit with a Dreamwear under nose FFM. Patient with sore on bridge of nose and difficulties moving in bed with current PAP mask. 1 Device 08/01/2020 Active Comment on above: Please fit with a Dr low under nose FFM. Patient with sore on bridge of nose and difficulties moving in bed with current PAP mask. Modem possibly not w orking. Downloads ceased last month. Please check device. cyclobenzaprine hydrochloride 10 mg oral tablet (2 sources) Muscle Relaxant Start: 2024 End: 2024 take 1 tablet by mouth every eight hours as needed for muscle spasms and muscle spasms cyclobenzaprine (FLEXERIL) 10 mg tablet Indications: Spasm of muscle Take 1 tablet by mouth three times a day as needed for muscle spasm for up to 7 days. 21 tablet 04/07/2025 04/12/2025 Discontinued dicyclomine hydrochloride 10 mg oral capsule (20 sources) Anticholinergic Start: 2018 End: 2019 take 2 capsules by mouth three times daily before mealtime Dicyclomine 10 MG capsule Discontinued 20 mg PO THREE TIMES DAILY BEFORE MEALS May 08, 2019 12:00am April 26, 2020 10:16am Start: 05-08-2019 End: 04-26-2020 take 20 mg by mouth three times daily before mealtime Dicyclomine Discontinued 20 MG PO THREE TIMES DAILY BEFORE MEALS May 08, 2019 12:00am April 26, 2020 10:16am diflunisal 500 mg oral tablet (5 sources) Nonsteroidal Anti-inflammatory Drug Start: 05-02-2017 End: 09-09-2017 DIFLUNISAL 500 MG TABS DIFLUNISAL [id number] Raghav IRENE 0.5 ml dulaglutide 1.5 mg/ml auto-injector (20 sources) GLP-1 Receptor Agonist Start: 07-25-2021 End: 10-16-2024 Dulaglutide (Trulicity) 0.75 mg/0.5 mL pen injector Discontinued 0.75 mg SC EVERY WEEK August 10, 2022 12:00am October 16, 2024 10:14pm Start: 04-26-2020 End: 08-10-2022 Dulaglutide (Trulicity) 1.5 mg/0.5 mL pen injector Discontinued 1.5 mg SC EVERY WEEK April 26, 2020 12:00am August 10, 2022 3:00pm Comment on above: Inject 0.75 mg subcutaneously one time a week. Inject dose once per week. Discard Pen After 1 ml erenumab-aooe 140 mg/ml auto-injector (20 sources) Start: 07-22-20 End: 02-22-20 inject 70 mg by intramuscular injection every month Erenumab-Aooe 70 MG/ML auto-injector Discontinued 140 mg IM EVERY MONTH July 22, 2018 12:00am February 21, 2021 9:15am Start: 07-22-2018 End: 02-21-2021 inject 140 mg by intramuscular injection every month Erenumab-Aooe Discontinued 140 MG IM EVERY MONTH July 22, 2018 12:00am February 21, 2021 9:15am etodolac 500 mg oral tablet (20 sources) Nonsteroidal Anti-inflammatory Drug Start: 08-07-2021 End: 01-01-2022 take 1 tablet by mouth twice daily Etodolac 500 mg tablet Discontinued 500 mg PO TWICE A DAY 60 August 07, 2021 12:00am January 01, 2022 4:28pm do not take in conjunction with other NSAIDS, tylenol is ok. glipiZIDE 5 mg oral tablet (20 sources) Sulfonylurea Start: 07-11-2020 End: 02-21-2021 take 1 tablet by mouth once daily Glipizide 5 MG tablet Discontinued 5 mg PO DAILY@0730 July 11, 2020 12:00am February 21, 2021 9:15am hydrocortisone 100 mg injection (20 sources) Corticosteroid Start: 04-26-2020 End: 04-28-2020 inject 100 mg by intramuscular injection once daily Hydrocortisone Sod Succinate (Solu-Cortef) 100 mg recon soln Discontinued 100 mg IM DAILY April 26, 2020 12:00am April 28, 2020 3:03pm ibuprofen 200 mg oral capsule (20 sources) Nonsteroidal Anti-inflammatory Drug Start: 07-22-2018 End: 04-28-2020 Ibuprofen 200 MG capsule Discontinued 400 mg PO NEEDED as needed for Pain July 22, 2018 12:00am April 28, 2020 4:40pm Start: 07-22-2018 End: 04-28-2020 Ibuprofen Discontinued 400 M G PO NEEDED July 22, 2018 12:00am April 28, 2020 4:40pm levoFLOXacin 500 mg oral tablet (20 sources) Quinolone Antimicrobial Start: 06-21-2021 End: 01-01-2022 take 1 tablet by mouth once daily Levofloxacin 500 mg tablet Discontinued 500 mg PO DAILY June 21, 2021 12:00am January 01, 2022 4:28pm LORazepam 1 mg oral tablet (20 sources) Benzodiazepine Start: 02-27-2023 End: 03-28-2023 LORazepam (ATIVAN) 1 mg tablet Indications: Anxiety One tab one hour before test 1 tablet 0 02/27/2023 03/28/2023 Start: 09-28-2016 LORAZEPAM 1 MG TABS LORAZEPAM [id number] Santana IRENE Start: 10-27-2013 End: 04-26-2020 take 1 tablet by mouth once daily as needed for anxiety Lorazepam 0.5 MG tablet Discontinued 0.5 mg PO DAILY NEEDED as needed for Anxiety October 27, 2013 1:00am April 26, 2020 10:16am Comment on above: One tab one hour bef ore test magnesium oxide 400 mg oral tablet (20 sources) Start : 02-17 End: 04-26 take 1 tablet by mouth once daily at mealtime Magnesium Oxide 400 MG tablet Discontinued 400 mg PO DAILY WITH MEALS February 17, 2019 12:00am April 26, 2020 10:16am methylPREDNISolone 4 mg oral tablet (20 sources) Corticosteroid Start : 08-07 End: 09-13 take 1 tablet by mouth once Methylprednisolone (Medrol (Temo)) 4 mg tablets,dose pack Discontinued 0 PO per package directions August 07, 2021 12:00am September 13, 2021 4:32pm take as directed metroNIDAZOLE 0.0075 mg/mg topical gel (20 sources) Nitroimidazole Antimicrobial Start : 08-10 End: 12-28 Metronidazole 0.75 % gel Discontinued 1 NMA TOPICAL TWICE A DAY August 10, 2022 12:00am December 28, 2022 4:01pm Start: 04-26-2020 End: 08-10-2022 Metronidazole (Metrogel) 1 % gel Discontinued 1 NMA TOPICAL TWICE A DAY as needed for Not Specified April 26, 2020 12:00am August 10, 2022 3:06pm Apply to affected area twice daily Start: 02-18-2020 End: 03-05-2023 Metronidazole Discontinued 1 APPLIC TOPICAL TWICE A DAY August 10, 2022 12:00am December 28, 2022 4:01pm Comment on above: Apply to affected ar ea twice daily. montelukast 10 mg oral tablet (20 sources) Leukotriene Receptor Antagonist Start: 0 End: 2 take 1 tablet by mouth at bedtime Montelukast (Singulair) 10 mg tablet Discontinued 10 mg PO AT BEDTIME April 26, 2020 12:00am August 10, 2022 3:08pm naproxen 500 mg oral tablet (20 sources) Nonsteroidal Anti-inflammatory Drug Start: 0 End: 0 take 1 tablet by mouth twice daily as needed for pain Naproxen 500 MG tablet Discontinued 500 mg PO TWICE DAILY NEEDED as needed for Pain Score 1-10/10 May 05, 2020 4:05pm August 23, 2020 10:23am naratriptan 2.5 mg oral tablet (20 sources) Serotonin-1b and Serotonin-1d Receptor Agonist Start: 4 End: 4 take 1 tablet by mouth twice daily as needed Naratriptan 2.5 mg tablet Discontinued 2.5 mg PO TWICE A DAY as needed December 10, 2023 1:00am February 04, 2024 1:19am No more than 10 times monthly Start: 11-10-2023 take 1 mg by mouth e very twenty-four hours naratriptan (AMERGE) 2.5 mg tablet Take 1 tablet (2.5 mg) by mouth as directed. at the onset of headache; if headache returns or does not fully resolve, the dose may be repeated after 4 hours; do not exceed five(5) mg in 24 hours. NO more than 10 doses a month. 10 tablet 2 09/13/2023 Active Comment on above: Take 1 tablet (2.5 m g) by mouth as directed. at the onset of headache; if headache returns or does not fully resolve, the dose may be repeated after 4 hours; do not exceed five(5) mg in 24 hours. NO more than 10 doses a month. ofloxacin 3 mg/ml otic solution (10 sources) Quinolone Antimicrobial Start: 10-27-2023 End: 12-10-2023 Ofloxacin 0.3 % drops Discontinued 10 NMA LEFT EAR DAILY 10 October 27, 2023 1:00am December 10, 2023 10:58am Start: 05-28-2023 End: 06-04-2023 ofloxacin (FLOXIN) 0.3 % sarah c solution Use 10 Drops in both ears once daily for 7 days. 5 mL 0 05/28/2023 06/04/2023 Active Comment on above: Use 10 Drops in both ears once daily for 7 days. Herrick-3 Fatty Acids (20 sources) Start: 04-26-2020 End: 08-23-2020 take 500 mg by mouth once daily Herrick-3 Fatty Acids Discontinued 500 MG PO DAILY April 26, 2020 10:19am August 23, 2020 10:22am Start: 04-26-2020 End: 08-23-2020 take 500 mg by mouth once daily Herrick-3 Fatty Acids Discontinued 500 MG PO DAILY April 25, 2020 11:00pm August 23, 2020 9:22am Start: 04-26-2020 End: 08-23-2020 take 500 mg by mouth once daily Herrick-3 Fatty Acids Discontinued 500 MG PO DAILY April 26, 2020 12:00am August 23, 2020 10:22am Herrick-3 Fatty Acids 500 mg capsule (5 sources) Start: 04-26-2020 End: 08-23-2020 take 1 capsule by mouth once daily Herrick-3 Fatty Acids 500 mg capsule Discontinued 500 mg PO DAILY April 26, 2020 12:00am August 23, 2020 10:22am PARoxetine hydrochloride 10 mg oral tablet (20 sources) Serotonin Reuptake Inhibitor Start: 07-22-2018 End: 02-17-2019 take 1 tablet by mouth once daily Paroxetine Hcl 10 MG tablet Discontinued 10 mg PO DAILY July 22, 2018 12:00am February 17, 2019 4:36pm phenazopyridine hydrochloride 200 mg oral tablet (20 sources) Start: 02-25-2019 End: 03-04-2019 take 1 tablet by mouth three times daily as needed for muscle spasms Phenazopyridine 200 MG tablet Discontinued 200 mg PO 3 TIMES DAILY NEEDED as needed for Bladder Spasms 30 7 February 25, 2019 12:00am March 03, 2019 12:00am March 04, 2019 12:07am phentermine hydrochloride 37.5 mg oral capsule (1 source) Sympathomimetic Amine Anorectic Start: 09-09-2017 take 1 tablet by mouth once daily ADIPEX-P 37.5 MG CAPS One tablet by mouth daily PHENTERMINE HCL [id number] Amparo Hitchcock MD predniSONE 50 mg oral tablet (5 sources) Corticosteroid Start: 05-02-2017 End: 09-09-2017 PREDNISONE 50 MG TABS 1 tablet every morning PREDNISONE [id number] Raghav IRENE pregabalin 75 mg oral capsule (14 sources) Start: 03-29-2022 End: 09-25-2022 pregabalin (LYRICA) 75 mg capsule Indications: fibromyalgia Take one pill at night for one week, then add one pill in the morning for one week, then take on pill 3 times per day thereafter 90 capsule 5 03/29/2022 05/24/2022 Discontinued Comment on above: Take one pill at nig ht for one week, then add one pill in the morning for one week, then take on pill 3 times per day thereafter Eydvowfx-Gj-Eoq-Fe-F A ( FORMULA) ORAL Tab (20 sources) Start: 03-14-2011 take 1 tablet by mouth once daily Gzhnrlgh-Eh-Wxn-Fe- FA ( FORMULA) ORAL Tab Take 1 tablet by mouth once daily. 0 03/14/2011 Active Comment on above: Take 1 tablet by ishmael once daily. Ficvhpph-Cpv-Uh-Fa 1 mg capsule (5 sources) Start: 04-26-2020 End: 08-05-2023 take 1 capsule by mouth once daily Aazpioot-Jhz-Vf-Fa 1 mg capsule Discontinued 1 NMA PO DAILY April 26, 2020 12:00am August 05, 2023 11:25am promethazine hydrochloride 25 mg oral tablet (20 sources) Phenothiazine Start: 07-11-2020 End: 08-10-2022 take 1 tablet by mouth every six hours as needed for nausea Promethazine 25 MG tablet Discontinued 25 mg PO EVERY 6 HOURS NEEDED as needed for Nausea July 11, 2020 12:00am August 10, 2022 3:08pm 24 hr propranolol hydrochloride 60 mg extended release oral capsule (20 sources) beta-Adrenergic [place] Start: 02-21-2021 End: 01-01-2022 take 1 capsule by mouth once daily Propranolol 60 mg capsule,extended release 24 hr Discontinued 60 mg PO DAILY February 21, 2021 12:00am January 01, 2022 4:29pm rizatriptan 10 mg oral tablet (20 sources) Serotonin-1b and Serotonin-1d Receptor Agonist Start: 12-28-2022 End: 12-10-2023 take 1 tablet by mouth once Rizatriptan 10 mg tablet Discontinued 10 mg PO ONCE December 28, 2022 1:00am December 10, 2023 10:59am Start: 08-07-2022 End: 08-10-2022 take 1 tablet by mouth once as needed Rizatriptan 10 mg tablet Discontinued 10 mg PO ONCE as needed August 07, 2022 12:00am August 10, 2022 3:09pm as a single dose Start: 08-03-2022 End: 01-31-2023 take 1 tablet by mouth every two hours as needed for headache rizatriptan (MAXALT) 10 mg tablet Take 1 tablet by mouth as needed (at onset of headache. May repeat after 2 hours.). Do not exceed 30 mg per day. 10 tablet 3 12/25/2022 01/31/2023 Discontinued Comment on above: Take 1 tablet by ishmael th as needed (at onset of headache. May repeat after 2 hours.). Do not exceed 30 mg per day. semaglutide (OZEMPIC) 0.25 mg or 0.5 mg (2 mg/3 mL) pen (20 sources) Start: 09-24-20 End: 01-23-20 inject 0.5 mg by subcutaneous injection every week semaglutide (OZEMPIC) 0.25 mg or 0.5 mg (2 mg/3 mL) pen Indications: Type 2 diabetes mellitus with microalbuminuria, with long-term current use of insulin (HCC) Inject 0.5 mg subcutaneously one time a week. 3 mL 5 09/24/2024 01/22/2025 Discontinued Start: 09-24-2024 End: 03-23-2025 inject 0.5 mg by subcutaneous injection every week semaglutide (OZEMPIC) 0.25 mg or 0.5 mg (2 mg/3 mL) pen Indications: Type 2 diabetes mellitus with microalbuminuria, with long-term current use of insulin (HCC) Inject 0.5 mg subcutaneously one time a week. 3 mL 5 09/24/2024 03/23/2025 Active Start: 08-05-2024 End: 09-24-2024 semaglutide (OZEMPIC) 0.25 m g or 0.5 mg (2 mg/3 mL) pen Indications: Type 2 diabetes mellitus with microalbuminuria, with long-term current use of insulin (HCC) Inject 0.25 mg subcutaneously one time a week. 3 mL 2 08/05/2024 09/24/2024 Discontinued Start: 08-05-2024 End: 02-01-2025 semaglutide (OZEMPIC) 0.25 m g or 0.5 mg (2 mg/3 mL) pen Indications: Type 2 diabetes mellitus with microalbuminuria, with long-term current use of insulin (HCC) Inject 0.25 mg subcutaneously one time a week. 3 mL 2 08/05/2024 02/01/2025 Active sulfamethoxazole 800 mg / trimethoprim 160 mg oral tablet (20 sources) Dihydrofolate Reductase Inhibitor Antibacterial, Sulfonamide Antimicrobial Start: 02-04-2024 End: 03-09-2024 Sulfamethoxazole-Trimethopri m 800-160 mg tablet Discontinued 1 {tbl} PO TWICE A DAY February 04, 2024 12:00am March 09, 2024 2:58pm Start: 02-04-2024 take 1 tablet by ishmael twice daily Sulfamethoxazole-Trimethoprim Active 1 T ABLET PO TWICE A DAY February 04, 2024 12:00am Start: 02-25-2019 End: 02-28-2019 Sulfamethoxazole-Trimethopri m 1 TABLET tablet Discontinued 1 {tbl} PO TWICE A DAY 6 3 February 25, 2019 12:00am February 27, 2019 12:00am February 28, 2019 12:09am Start: 02-25-2019 End: 02-28-2019 take 1 tablet by mouth twice daily Sulfamethoxazole-Trimethoprim Discontinu ed 1 TABLET PO TWICE A DAY 6 3 February 25, 2019 12:00am February 28, 2019 12:09am SUMAtriptan 50 mg oral tablet (20 sources) Serotonin-1b and Serotonin-1d Receptor Agonist Start: 08-10-2022 End: 11-27-2022 SUMAtriptan (IMITREX) 50 mg tablet Take by mouth. 0 08/10/2022 11/27/2022 Discontinued (Other) Start: 08-10-2022 End: 12-28-2022 take 1 tablet by mouth once as needed for headache Sumatriptan Succinate 50 mg tablet Discontinued 50 mg PO ONCE as needed for migraine headache August 10, 2022 12:00am December 28, 2022 4:01pm Start: 07-19-2022 End: 08-03-2022 take 1 tablet by mouth every two hours as needed for headache SUMAtriptan (IMITREX) 50 mg tablet Take 1 tablet by mouth as needed. at onset of headache. May repeat after 2 hours. 9 tablet 3 07/19/2022 08/03/2022 Discontinued Comment on above: Take 1 tablet by ishmael th as needed. at onset of headache. May repeat after 2 hours. Take by mouth. tranexamic acid 650 mg oral tablet (20 sources) Antifibrinolytic Agent Start: 02-22-20 21 End: 01-01-20 22 take 1 tablet by mouth twice daily Tranexamic Acid 650 mg tablet Discontinued 650 mg PO TWICE A DAY February 21, 2021 12:00am January 01, 2022 4:30pm ZOLMitriptan 5 mg oral tablet (20 sources) Serotonin-1b and Serotonin-1d Receptor Agonist Start: 02-01-20 23 End: 09-09-20 23 take 1 tablet by mouth once daily as needed ZOLMitriptan (ZOMIG) 5 mg tablet Indications: Post concussive syndrome , Headache, unspecified headache type Take 1 tablet (5 mg) by mouth once daily. prn 9 tablet 11 09/09/2023 Active Comment on above: Take 1 tablet by ishmael th once daily. prn Take 1 tablet (5 mg) by mouth once daily. prn Problems Active Problems Problem Classification Problem Date Documented Date Episodic/Chronic Abdominal pain (20 sources) Left sided abdominal pain; Translations: [Unspecified abdominal pain] 03-02-2019 Episodic Acute and unspecified renal failure (20 sources) Injury of kidney; Translations: [Acute kidney failure, unspecified] 08-10-2022 Episodic Acute bronchitis (20 sources) Acute bronchitis 07-23-2022 Episodic Anxiety disorders (20 sources) Anxiety; Translations: [Anxiety disorder, unspecified] Onset: 06-07-20 14 06-07-2014 Chronic Blindness and vision defects (6 sources) Subjective visual disturbance; Translations: [Unspecified subjective visual disturbances] 02-04-2024 Episodic Delirium, dementia, and amnestic and other cognitive disorders (13 sources) Postconcussion syndrome; Translations: [Postconcussional syndrome] Chronic Diabetes mellitus with complications (20 sources) Type 2 diabetes mellitus; Translations: [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 kidney complication] Onset: 07-04-20 18 Resolved : 09-04-2010-09-2019 Chronic Diabetes mellitus without complication (10 sources) Type 2 diabetes mellitus without complications; Translations: [Diabetes mellitus without mention of complication, type II or unspecified type, not stated as uncontrolled] Chronic Diseases of white blood cells (1 source) Leukocytosis; Translations: [Elevated white blood cell count, unspecified] Chronic Disorders of lipid metabolism (20 sources) Mixed hypercholesterolemia and hypertriglyceridemia; Translations: [Mixed hyperlipidemia] 12-30-2019 Chronic Essential hypertension (20 sources) Hypertensive disorder; Translations: [Essential (primary) hypertension] Onset: 08-16-20 Chronic Comment on above: Patient blood pressu re in the office today was 137/78 heart rate 73. The patient does have obstructive sleep apnea and is treated. She also has a history of diabetes mellitus with her last hemoglobin A1c measured at 5.7 by her report. The patient is not on statin therapy. Headache; including migraine (20 sources) Migraine; Translations: [Migraine, unspecified, not intractable, without status migrainosus] Onset: 09-04-20 Chronic Headache; including migraine (1 source) Headache; including migraine; Translations: [Headache, unspecified] Onset: 12-04-19 Immunizations and screening for infectious disease (4 sources) Patient encounter status; Translations: [Encounter for screening for COVID-19] 06-03-2024 Episodic Intracranial injury (20 sources) Concussion with loss of consciousness of unspecified duration, initial encounter; Translations: [Concussion injury of brain] Onset: 09-28-20 Resolved : 09-09-20 17 09-28-2016 Episodic Malaise and fatigue (20 sources) Fatigue; Translations: [Other fatigue] Episodic Miscellaneous mental health disorders (1 source) Primary insomnia; Translations: [Primary insomnia] 09-24-2024 Chronic Mood disorders (2 sources) Recurrent major depressive episodes, moderate ; Translations: [Major depressive disorder, recurrent, moderate] Chronic Osteoarthritis (5 sources) Osteoarthritis of joint of left shoulder region; Translations: [Primary osteoarthritis, left shoulder] Onset: 03-29-20 Chronic Other bone disease and musculoskeletal deformities (20 sources) Segmental and somatic dysfunction of cervical region; Translations: [Nonallopathic lesions, cervical region] Onset: 04-05-20 Episodic Other bone disease and musculoskeletal deformities (20 sources) Segmental and somatic dysfunction of lumbar region; Translations: [Nonallopathic lesions, lumbar region] Onset: 04-05-20 Episodic Other bone disease and musculoskeletal deformities (20 sources) Segmental and somatic dysfunction of pelvic region; Translations: [Nonallopathic lesions, pelvic region] Onset: 04-05-20 Episodic Other bone disease and musculoskeletal deformities (20 sources) Segmental and somatic dysfunction of thoracic region; Translations: [Nonallopathic lesions, thoracic region] Onset: 04-05-20 Episodic Other circulatory disease (1 source) Elevated blood-pressure reading without diagnosis of hypertension; Translations: [Elevated blood-pressure reading, without diagnosis of hypertension] Episodic Other connective tissue disease (4 sources) Myofascial pain; Translations: [Myalgia, other site] Episodic Other connective tissue disease (3 sources) Neuropathic pain; Translations: [Neuralgia and neuritis, unspecified] Episodic Other connective tissue disease (2 sources) Pain in left arm; Translations: [Pain in left arm] Episodic Other connective tissue disease (1 source) Adhesive capsulitis of left shoulder; Translations: [Adhesive capsulitis of left shoulder] Onset: 01-03-20 Episodic Other connective tissue disease (2 sources) Mass of soft tissue; Translations: [Other specified soft tissue disorders] Episodic Other connective tissue disease (1 source) Pain in right foot; Translations: [Pain in right foot] 05-29-2023 Episodic Other connective tissue disease (1 source) Plantar fasciitis; Translations: [Plantar fascial fibromatosis] 06-19-2023 Episodic Other connective tissue disease (1 source) Calcaneal spur of right foot; Translations: [Calcaneal spur, right foot] 06-19-2023 Episodic Other connective tissue disease (1 source) Pain in right heel; Translations: [Pain in right foot] 05-28-2023 Episodic Other connective tissue disease (1 source) Spasm; Translations: [Other muscle spasm] 04-07-2025 Episodic Other diseases of kidney and ureters (20 sources) Hydronephrosis; Translations: [Unspecified hydronephrosis] 08-10-2022 Episodic Other diseases of kidney and ureters (20 sources) Hydroureter; Translations: [Hydroureter] 08-10-2022 Episodic Other diseases of kidney and ureters (20 sources) Stenosis of ureter; Translations: [Crossing vessel and stricture of ureter without hydronephrosis] 03-02-2019 Episodic Other ear and sense organ disorders (8 sources) Otitis externa; Translations: [Unspecified otitis externa, unspecified ear] 10-27-2023 Chronic Other gastrointestinal disorders (20 sources) Acute diarrhea; Translations: [Diarrhea, unspecified] 12-31-2019 Episodic Other injuries and conditions due to external causes (2 sources) Injury of neck; Translations: [Unspecified injury of neck, subsequent encounter] Episodic Other liver diseases (20 sources) Non-alcoholic fatty liver; Translations: [Fatty (change of) liver, not elsewhere classified] Onset: 01-18-2005-15-2020 Chronic Other liver diseases (15 sources) Non-alcoholic fatty liver disease without non-alcoholic steatohepatitis; Translations: [Fatty (change of) liver, not elsewhere classified] Onset: 01-18-2012-27-2022 Chronic Other lower respiratory disease (20 sources) Acute respiratory insufficiency 07-23-2022 Episodic Other lower respiratory disease (1 source) Rib pain; Translations: [Pleurodynia] Episodic Other lower respiratory disease (2 sources) Cough; Translations: [Acute cough] 06-11-2024 Episodic Other lower respiratory disease (1 source) Wheezing; Translations: [Wheezing] 07-03-2024 Episodic Other nervous system disorders (4 sources) Other chronic pain; Translations: [Chronic left shoulder pain] Onset: 01-03-20 Chronic Other nervous system disorders (1 source) Disturbance of attention; Translations: [Attention and concentration deficit] 06-07-2023 Chronic Other nervous system disorders (20 sources) H/O: respiratory disease; Translations: [Personal history of other diseases of the nervous system and sense organs] 08-10-2022 Episodic Other nervous system disorders (1 source) H/O: migraine; Translations: [Personal history of other diseases of the nervous system and sense organs] Episodic Other nervous system disorders (9 sources) Facial paresthesia; Translations: [Paresthesia of skin] 08-09-2023 Episodic Other nervous system disorders (9 sources) Paresthesia of left lower limb; Translations: [Paresthesia of skin] 08-09-2023 Episodic Other nervous system disorders (9 sources) Paresthesia of left upper limb; Translations: [Paresthesia of skin] 08-09-2023 Episodic Other nervous system disorders (6 sources) Paresthesia of skin; Translations: [Disturbance of skin sensation] 08-07-2023 Episodic Other non-traumatic joint disorders (20 sources) Pain in left shoulder; Translations: [Left shoulder pain] Onset: 01-03-2008-10-2022 Episodic Other nutritional; endocrine; and metabolic disorders (20 sources) Morbid obesity; Translations: [Morbid (severe) obesity due to excess calories] Onset: 01-24-2002-16-2010 Chronic Other nutritional; endocrine; and metabolic disorders (20 sources) Obesity; Translations: [Obesity, unspecified] 08-23-2020 Chronic Other nutritional; endocrine; and metabolic disorders (2 sources) Severe obesity; Translations: [Morbid (severe) obesity due to excess calories] Chronic Other nutritional; endocrine; and metabolic disorders (17 sources) Obesity, unspecified; Translations: [Obesity, unspecified] Chronic Other upper respiratory infections (3 sources) Chronic sinusitis; Translations: [Chronic sinusitis, unspecified] Onset: 12-11-19 25 12-11-2024 Chronic Residual codes; unclassified (20 sources) Obstructive sleep apnea syndrome; Translations: [Obstructive sleep apnea (adult) (pediatric)] Onset: 07-21-20 18 08-01-2020 Chronic Comment on above: VPAP Residual codes; unclassified (6 sources) Obstructive sleep apnea (adult) (pediatric); Translations: [Obstructive sleep apnea (adult)(pediatric)] Onset: 04-10-20 22 12-06-2022 Chronic Residual codes; unclassified (1 source) Transient alteration of awareness; Translations: [Transient alteration of awareness] Episodic Residual codes; unclassified (1 source) Amnesia; Translations: [Other amnesia] 06-07-2023 Episodic Spondylosis; intervertebral disc disorders; other back problems (20 sources) Lumbar disc prolapse with radiculopathy; Translations: [Disorder of lumbar disc] Onset: 05-06-20 Resolved : 01-24-20 10 06-24-2017 Chronic Spondylosis; intervertebral disc disorders; other back problems (20 sources) Low back pain; Translations: [Backache] Onset: 04-26-20 Resolved : 09-04-20 22 04-26-2017 Episodic Syncope (20 sources) Near syncope; Translations: [Syncope and collapse] 03-01-2019 Episodic Unclassified (20 sources) Body mass index 40+ - severely obese; Translations: [Morbid (severe) obesity due to excess calories] Onset: 09-09-20 Resolved : 09-04-20 22 09-09-2017 Chronic Unclassified (2 sources) Chronic pain of left upper limb 01-22-2025 Unclassified (1 source) Low back pain, unspecified; Translations: [Low back pain, unspecified] Onset: 03-22-20 25 Unclassified (1 source) Cough, unspecified; Translations: [Cough, unspecified] Onset: 08-13-20 24 Urinary tract infections (20 sources) Urinary tract infectious disease; Translations: [Urinary tract infection, site not specified] 08-10-2022 Episodic Past or Other Problems Problem Classification Problem Date Documented Date Episodic/Chronic Allergic reactions (20 sources) Contact dermatitis; Translations: [Unspecified contact dermatitis, unspecified cause] Onset: 7 Resolved: 0 01-23-2010 Episodic Calculus of urinary tract (20 sources) Kidney stone; Translations: [Calculus of kidney] Onset: 2 09-04-2022 Episodic Chronic obstructive pulmonary disease and bronchiectasis (4 sources) Bronchitis; Translations: [Bronchitis, not specified as acute or chronic] Onset: 4 07-03-2024 Episodic Conditions associated with dizziness or vertigo (20 sources) Lightheadedness; Translations: [Dizziness and giddiness] Onset: 2 Episodic Contraceptive and procreative management (20 sources) IUD contraception; Translations: [Presence of (intrauterine) contraceptive device] Onset: 7 09-09-2017 Episodic E Codes: Fall (20 sources) Fall; Translations: [Unspecified fall, initial encounter] Onset: 2 Resolved: 2 05-06-2020 Episodic Fluid and electrolyte disorders (14 sources) Dehydration; Translations: [Dehydration] Onset: 5 12-11-2024 Episodic Genitourinary symptoms and ill-defined conditions (20 sources) Microalbuminuria; Translations: [Proteinuria, unspecified] Onset: 8 Resolved: 2 09-30-2018 Episodic Headache; including migraine (20 sources) Headache; Translations: [Headache] Onset: 2 Resolved: 2 Episodic Hypertension complicating ; childbirth and the puerperium (20 sources) Transient hypertension of ; Translations: [Gestational [-induced] hypertension without significant proteinuria, unspecified trimester] Onset: 6 Resolved: 6 07-02-2006 Episodic Nausea and vomiting (20 sources) Nausea, vomiting and diarrhea; Translations: [Nausea with vomiting, unspecified] Onset: 2 Resolved: 2 09-25-2019 Episodic Nonspecific chest pain (20 sources) Chest pain; Translations: [Chest pain, unspecified] Onset: 2 Resolved: 2 03-24-2020 Episodic Other aftercare (1 source) [employer] (current) use of insulin; Translations: [Type 2 diabetes mellitus with microalbuminuria, with long-term current use of insulin (HCC)] Onset: 9 Episodic Other and unspecified benign neoplasm (20 sources) Benign neoplasm of skin of upper limb; Translations: [Other benign neoplasm of skin of unspecified upper limb, including shoulder] Onset: 7 Resolved: 0 01-23-2010 Episodic Other bone disease and musculoskeletal deformities (20 sources) Segmental and somatic dysfunction; Translations: [Segmental and somatic dysfunction of cervical region] Onset: 2 Resolved: 2 08-21-2022 Episodic Other bone disease and musculoskeletal deformities (20 sources) Pain of left shoulder blade; Translations: [Other specified disorders of bone, shoulder] Onset: 2 Resolved: 2 08-10-2022 Episodic Other congenital anomalies (20 sources) Congenital anomaly of skin; Translations: [Other specified congenital malformations of skin] Onset: 7 Resolved: 0 01-23-2010 Chronic Other connective tissue disease (20 sources) Adhesive capsulitis of left shoulder; Translations: [Adhesive capsulitis of left shoulder] Onset: 3 Episodic Other connective tissue disease (20 sources) Muscle pain; Translations: [Myalgia, unspecified site] Onset: 2 Resolved: 2 03-07-2022 Episodic Other connective tissue disease (1 source) Myalgia, other site; Translations: [Myofascial pain] Onset: 2 Episodic Other connective tissue disease (1 source) Neuralgia and neuritis, unspecified; Translations: [Neuropathic pain] Onset: 2 Episodic Other inflammatory condition of skin (20 sources) Lichen simplex chronicus; Translations: [Lichen simplex chronicus] Onset: 7 Resolved: 0 01-23-2010 Episodic Other injuries and conditions due to external causes (20 sources) Closed injury of head; Translations: [Unspecified injury of head, initial encounter] Onset: 3 Resolved: 4 11-24-2022 Episodic Other injuries and conditions due to external causes (1 source) Unspecified injury of head, initial encounter; Translations: [Unspecified injury of head, initial encounter] Onset: 5 Episodic Other liver diseases (20 sources) Steatosis of liver; Translations: [Fatty (change of) liver, not elsewhere classified] Onset: 8 Resolved: 4 08-17-2020 Chronic Other lower respiratory disease (20 sources) Dyspnea; Translations: [Dyspnea, unspecified] Onset: 2 Resolved: 2 Episodic Other lower respiratory disease (1 source) Wheezing; Translations: [Wheezing] Onset: 4 Episodic Other nervous system disorders (20 sources) Numbness of upper limb; Translations: [Anesthesia of skin] Onset: 1 Resolved: 2 08-10-2022 Episodic Other nervous system disorders (20 sources) Paresthesia; Translations: [Paresthesia of skin] Onset: 3 Resolved: 4 01-17-2023 Episodic Other non-traumatic joint disorders (20 sources) Shoulder pain; Translations: [Pain in left shoulder] Onset: 2 Resolved: 4 09-04-2022 Episodic Other non-traumatic joint disorders (20 sources) Chronic pain of left upper limb; Translations: [Pain in left shoulder] Onset: 3 Episodic Other nutritional; endocrine; and metabolic disorders (20 sources) History of diabetes mellitus type 2; Translations: [Personal history of other endocrine, nutritional and metabolic disease] Onset: 2 Resolved: 2 09-04-2022 Episodic Other and delivery including normal (20 sources) Normal in primigravida; Translations: [Encounter for supervision of normal first , unspecified trimester] Onset: 6 Resolved: 6 07-02-2006 Episodic Other screening for suspected conditions (not mental disorders or infectious disease) (20 sources) Prolonged QT interval; Translations: [Abnormal electrocardiogram [ECG] [EKG]] Onset: 0 03-31-2020 Episodic Comment on above: The patient is EKG i n office today shows a normal QT interval with normal sinus rhythm and nonspecific T wave changes and poor R wave progression low voltage consistent with her body habitus. The previous prolonged QT interval has resolved. Other skin disorders (20 sources) Acne; Translations: [Other acne] Onset: 7 02-16-2010 Episodic Other skin disorders (20 sources) Disorder of skin appendage; Translations: [Other hair color and hair shaft abnormalities] Onset: 7 Resolved: 0 01-23-2010 Episodic Other upper respiratory infections (20 sources) Upper respiratory infection; Translations: [Acute upper respiratory infection, unspecified] Onset: 2 Resolved: 2 02-04-2024 Episodic Sprains and strains (20 sources) Strain of muscle, fascia and tendon of lower back, subsequent encounter; Translations: [Strain of muscle, fascia and tendon of lower back, initial encounter] Onset: 7 Resolved: 2 08-06-2017 Episodic Superficial injury; contusion (20 sources) Contusion of knee; Translations: [Contusion of right knee, initial encounter] Onset: 2 Resolved: 2 11-24-2022 Episodic Unclassified (20 sources) Left upper quadrant abdominal pain 08-10-2022 Unclassified (20 sources) History of stent into kidney 05-30-2022 Comment on above: 2018 Unclassified (1 source) Patient encounter status 12-12-2024 Viral infection (20 sources) Viral disease; Translations: [Viral infection, unspecified] Onset: 2 Resolved: 2 07-12-2020 Episodic Results Test Name Value Interpretation Reference Range Facility [facility] 04-07-2025 [facility] Telephone (FAM[facility]) ---- TORI GRAY ([id number]) 1980 F Date Time Provider Department [facility]/07[facility] During your visit today, we recorded the following information about you: Ivette Grimes MD 04/07/2025 3:36 PM Signed Requests refill. Allergies As of Date: 04/07/2025 Noted Allergy Reaction FARXIGA (DAPAGLIFLOZIN) 08/05/2024 8 - GI Upset LIDOCAINE 12/24/2019 4 - Hives METFORMIN 08/05/2024 8 - GI Upset STEROIDS (BETAMETHASONE DIPROPION* 2 4 - Hives Date Reviewed: 01/22/2025 Reviewed by: Nirmala Storey LPN - Fully Assessed Reason for Visit: Rx Refills [128] Visit Diagnosis:Spasm of muscle [M62.838] Order(s):cyclobenza asiya (FLEXERIL) 10 mg tabletTake 1 tablet by mouth three times a day as needed for muscle spasm for up to 7 days.Disp: 21 tabletRfl: 0 Prescriptions as of 04/07/2025 - cyclobenzaprine (FLEXERIL) 10 mg tablet Take 1 tablet by mouth three times a day as needed for muscle spasm for up to 7 days. - divalproex ER (DEPAKOTE ER) 500 mg 24 hr tablet Depakote ER 500 mg one tablet twice a day for the first five days, then take take one tablet once a day for the next five days, then stop using depakote - FLUoxetine (PROZAC) 20 mg capsule Take 1 capsule by mouth once daily. - gabapentin (NEURONTIN) 300 mg capsule Take 1 capsule by mouth two times a day for 180 days. - semaglutide (OZEMPIC) 1 mg/dose (4 mg/3 mL) pen Inject 1 mg subcutaneously one time a week. - topiramate (TOPAMAX) 100 mg tablet Take 1 tablet by mouth two times a day. - potassium chloride (KLOR-CON) 20 mEq packet Take 20 mEq by mouth as needed. - albuterol HFA (VENTOLIN HFA) 90 mcg/actuation inhaler Inhale 2 Puffs as instructed every 4 hours as needed for wheezing/shortness of breath. - ondansetron (ZOFRAN) 4 mg tablet Take 1 tablet by mouth every 8 hours as needed for nausea/vomiting. - lisinopril (ZESTRIL) 10 mg tablet Take 1 tablet by mouth once daily. - rimegepant (NURTEC ODT) 75 mg disintegrating tablet Take 1 tablet by mouth once daily as needed. - naratriptan (AMERGE) 2.5 mg tablet Take 1 tablet (2.5 mg) by mouth as directed. at the onset of headache; if headache returns or does not fully resolve, the dose may be repeated after 4 hours; do not exceed five(5) mg in 24 hours. NO more than 10 doses a month. - fexofenadine (ALMA ALLERGY) 180 mg tablet Take 1 tablet by mouth once daily. - Ipratropium [place] (ATROVENT) 21 mcg (0.03 %) nasal spray Use 2 Sprays in the nose every 12 hours. - omeprazole (PRILOSEC) 20 mg capsule Take 1 capsule by mouth daily before breakfast. 1/2 hr before meal. - MAGNESIUM ORAL Take by mouth. - meclizine (ANTIVERT) 25 mg tab Take 25 mg by mouth once daily. Takes two tabs in am - BIPAP - levonorgestrel (KYLEENA) 17.5 mcg/24 hrs (5 yrs) 19.5 mg IUD 1 Each by INTRAUTERINE route as directed. - Herrick-3 Fatty Acids (FISH OIL) 500 mg cap Take 1 capsule by mouth once daily. - blood sugar diagnostic (BLOOD GLUCOSE TEST) test strip Test blood sugar(s) 1 times daily. Dx: Type 2 DM - Controlled E11.9 Insulin: Yes - Lancets lancets Test blood sugar(s) 1 times daily. Dx: Type 2 DM - Controlled E11.9 Insulin: No - Udklamwj-Vj-Otb-Fe- FA tab Take 1 tablet by mouth once daily. Meds Comments as of 03/01/2019: Percocet March 01, 2019 Stephanie Suresh RN Problem List As Of Date 04/07/2025 Noted Resolved SUPERVIS NORMAL 1ST PREG [Z34.00] 11/09/2005 07/02/2006 TRANS HYPERTEN-ANTEPART [O13.9] 06/19/2006 07/02/2006 KERATOSIS PILARIS////SKIN ANOMALY NEC [Q82.8] 03/26/2007 01/23/2010 Other Acne [L70.8] 03/26/2007 FOLLICULITIS///HAIR DISEASES NEC [L67.8, L73.8] 03/26/2007 01/23/2010 Lichenification and Lichen Simplex Chronicus [L*03/26/2007 01/23/2010 DERMATOFIBROMA///BE NIGN KAILEY SKIN ARM [D23.60] 03/26/2007 01/23/2010 Contact Dermatitis and Other Eczema, due to Uns*03/26/2007 01/23/2010 SACROILIITIS [M46.1] 05/06/2009 01/23/2010 Routine general medical examination at a [facility]*01/23/2010 12/06/2012 Class: Chronic Routine gynecological examination [Z01.419] 01/23/2010 02/22/2014 Class: Chronic Morbid Obesity [E66.01] 01/23/2010 Lumbar Disc Disorder [M51.9] 02/16/2010 Routine general medical examination at [facility]*12/06/2012 02/22/2014 Anxiety [F41.9] 06/07/2014 Type 2 diabetes mellitus with microalbuminuria,*0 07/04/2018 Fatty liver [K76.0] 07/21/2018 08/05/2024 LETITIA (obstructive sleep apnea) [G47.33] 07/21/2018 Microalbuminuria [R80.9] 09/30/2018 09/04/2022 Obesity, Class III, BMI >= 40 [E66.813] 11/26/2019 09/04/2022 Prolonged Q-T interval on ECG [R94.31] 03/31/2020 Calculus of kidney [N20.0] 09/04/2022 Chest pain [R07.9] 09/04/2022 09/04/2022 Contusion of knee [S80.00XA] 09/04/2022 09/04/2022 Essential (primary) hypertension [I10] 08/16/2022 Fall [W19.XXXA] 09/04/2022 09/04/2022 Headache [R51] 09/04/2022 09/04/2022 (more content not included)... Normal [facility] Chiropractic Reporton 2024 Chiropractic Report [facility] Chiropractic [address] [place] [id number] OFFICE VISIT Date of Service: 04/05/25 MR#: [id number] Acct: [id number] Name: TORI GRAY Rep #: [id number] : 1980 Provider: CONCEPCIÓN Montgomery Age/Sex: 44/F Location: [facility] Status: Signed Intake Vital Signs 03/22/25 09:08 Height 5 ft 7 in Intake Visit Reasons: Back pain Chief Complaint: Left shoulder pain Allergies Corticosteroids (Glucocorticoids) (steroids) Allergy (Verified 04/05/25 10:23) Hives lidocaine Adverse Reaction (Intermediate, Verified 04/05/25 10:23) Hives Medications ???Medication ???Instructions ???Recorded ???Confirmed ???Type blood sugar diagnostic (Blood #10 ea 04/26/20 04/05/25 History Glucose Test strips) ipratropium bromide 21 mcg (0.03 2 spray intranasal BID allergies 1 04/05/25 History %) nasal spray albuterol sulfate 90 mcg/actuation 2 puff inhalation Q4H PRN 04/05/25 History aerosol inhaler shortness of breath or wheezing fexofenadine 180 mg tablet 180 mg PO DAILY allergies 08/10/22 04/05/25 History (Allergy Relief (fexofenadine)) levonorgestrel 17.5 mcg/24 hr (up 1 device intrauterine ONCE 08/10/22 04/05/25 History to 5 yrs) 19.5mg intrauterine control device tizanidine 4 mg tablet 4 mg PO Q8H PRN Muscle Spasm 08/1004/05/25 History omeprazole 20 mg capsule,delayed 20 mg PO DAILY PRN gerd 08/16/22 0 04/05/25 History release topiramate 100 mg tablet 100 mg PO BID seizures 08/16/22 History fluoxetine 20 mg capsule 20 mg PO DAILY mental health 12/2804/05/25 History gabapentin 300 mg capsule 300 mg PO BID nerve pain 12/28/22 04/05/25 History lisinopril 10 mg tablet 10 mg PO DAILY blood pressure 12/0604/05/25 History ondansetron HCl 4 mg tablet 4 mg PO Q8H PRN nausea 12/28/22 History rimegepant 75 mg disintegrating 75 mg PO DAILY PRN migraine 04/05/25 History tablet (Nurtec ODT) headache semaglutide 0.25 mg or 0.5 mg (2 0.5 mg subcut QWEEK 10/16/2404/05 History mg/3 mL) subcutaneous pen injector (Ozempic) potassium chloride 20 mEq oral 20 meq PO BID 7 days #30 ea 04/05/25 Rx packet [facility] Medical History Abnormal ECG Prolonged Q-T interval on ECG Microalbuminuria LETITIA (obstructive sleep apnea) Back pain 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 Nausea Left shoulder pain Pain of left scapula Left upper extremity numbness Left shoulder strain Obstructive Sleep Apnea-Hypopnea Syndrome Fatty liver Type 2 diabetes mellitus with microalbuminuria Type 2 diabetes mellitus without complication, with long-term current use of insulin History of stent into kidney Anxiety Acute cholecystitis Segmental and somatic dysfunction of cervical region Migraines Acute bronchitis Acute respiratory insufficiency Dyspnea History of obstructive sleep apnea Elevated triglycerides with high cholesterol Calculus of left kidney Nonalcoholic hepatosteatosis Hydroureter, left Hydronephrosis, left Acute kidney injury Pyelonephritis Nephrolithiasis Obesity Hypertension Type 2 diabetes mellitus Segmental and somatic dysfunction of lumbar region Vertigo Left upper quadrant abdominal pain Dysuria Urinary tract infection Segmental and somatic dysfunction of pelvic region Segmental and somatic dysfunction of thoracic region Lumbar facet arthropathy Lumbosacral spondylosis Radiculopathy of lumbosacral region Disc displacement, lumbar Degeneration of intervertebral disc of lumbosacral region Surgical History History of urethral stent ( 2018) Hx laparoscopic cholecystectomy ( 2005) H/O: ( 2005) Family History Father Diabetes Myocardial infarction Pancreatic cancer Mother Alcohol abuse Drug abuse Grandfather Diabetes Grandmother Lung cancer Grandmother Heart disease Triple bypass surgery Social History Smoking Status: Never smoker alcohol intake: never substance use type: does not use caffeine: Yes Type: coffee what type of physical activity do you participate in: walking frequency: daily seatbelt use: always do you feel safe at home: Yes HPI Back pain Chief Complaint: low back, left neck pain Visit Number: 4 Details: Tori is a 44 y/o F here today to f/u with ongoing neck and low back pain. Pt. continues to c/o increased pain in her left neck/shoulder/upper back over the last few weeks. The pain extends into her left trap and under her shoulder blade. She had an appointment with Dr. Quiroga last week (more content not included)... [facility] 04-01-2025 [facility] Telephone (NENMMN) ---- TORI GRAY ([id number]) 1980 F Date Time Provider Department 04/01/25 AMANDA ARTEAGA [facility] During your visit today, we recorded the following information about you: Nakia Caraballo RN 04/01/2025 12:47 PM Signed Botox approved until 11/03/25. Patient and scheduling made aware. She is a patient of [id number] but due to her being out on maternity leave, patient will need scheduled with another [facility]. Saw Amanda on 03/09/25. Latonia Caraballo RN, BSN Allergies As of Date: 04/01/2025 Noted Allergy Reaction FARXIGA (DAPAGLIFLOZIN) 08/05/2024 8 - GI Upset LIDOCAINE 12/24/2019 4 - Hives METFORMIN 08/05/2024 8 - GI Upset STEROIDS (BETAMETHASONE DIPROPION* 2 4 - Hives Date Reviewed: 01/22/2025 Reviewed by: Nirmala Storey LPN - Fully Assessed Reason for Visit: Botox Approved [Other] Prescriptions as of 04/01/2025 - divalproex ER (DEPAKOTE ER) 500 mg 24 hr tablet Depakote ER 500 mg one tablet twice a day for the first five days, then take take one tablet once a day for the next five days, then stop using depakote - FLUoxetine (PROZAC) 20 mg capsule Take 1 capsule by mouth once daily. - gabapentin (NEURONTIN) 300 mg capsule Take 1 capsule by mouth two times a day for 180 days. - semaglutide (OZEMPIC) 1 mg/dose (4 mg/3 mL) pen Inject 1 mg subcutaneously one time a week. - topiramate (TOPAMAX) 100 mg tablet Take 1 tablet by mouth two times a day. - potassium chloride (KLOR-CON) 20 mEq packet Take 20 mEq by mouth as needed. - albuterol HFA (VENTOLIN HFA) 90 mcg/actuation inhaler Inhale 2 Puffs as instructed every 4 hours as needed for wheezing/shortness of breath. - ondansetron (ZOFRAN) 4 mg tablet Take 1 tablet by mouth every 8 hours as needed for nausea/vomiting. - lisinopril (ZESTRIL) 10 mg tablet Take 1 tablet by mouth once daily. - rimegepant (NURTEC ODT) 75 mg disintegrating tablet Take 1 tablet by mouth once daily as needed. - naratriptan (AMERGE) 2.5 mg tablet Take 1 tablet (2.5 mg) by mouth as directed. at the onset of headache; if headache returns or does not fully resolve, the dose may be repeated after 4 hours; do not exceed five(5) mg in 24 hours. NO more than 10 doses a month. - fexofenadine (ALMA ALLERGY) 180 mg tablet Take 1 tablet by mouth once daily. - Ipratropium [place] (ATROVENT) 21 mcg (0.03 %) nasal spray Use 2 Sprays in the nose every 12 hours. - omeprazole (PRILOSEC) 20 mg capsule Take 1 capsule by mouth daily before breakfast. 1/2 hr before meal. - MAGNESIUM ORAL Take by mouth. - meclizine (ANTIVERT) 25 mg tab Take 25 mg by mouth once daily. Takes two tabs in am - BIPAP - levonorgestrel (KYLEENA) 17.5 mcg/24 hrs (5 yrs) 19.5 mg IUD 1 Each by INTRAUTERINE route as directed. - Herrick-3 Fatty Acids (FISH OIL) 500 mg cap Take 1 capsule by mouth once daily. - blood sugar diagnostic (BLOOD GLUCOSE TEST) test strip Test blood sugar(s) 1 times daily. Dx: Type 2 DM - Controlled E11.9 Insulin: Yes - Lancets lancets Test blood sugar(s) 1 times daily. Dx: Type 2 DM - Controlled E11.9 Insulin: No - Fzaqnfhr-Gn-Vmr-Fe- FA tab Take 1 tablet by mouth once daily. Meds Comments as of 03/01/2019: Percocet March 01, 2019 Stephanie Suresh RN Problem List As Of Date 04/01/2025 Noted Resolved SUPERVIS NORMAL 1ST PREG [Z34.00] 11/09/2005 07/02/2006 TRANS HYPERTEN-ANTEPART [O13.9] 06/19/2006 07/02/2006 KERATOSIS PILARIS////SKIN ANOMALY NEC [Q82.8] 03/26/2007 01/23/2010 Other Acne [L70.8] 03/26/2007 FOLLICULITIS///HAIR DISEASES NEC [L67.8, L73.8] 03/26/2007 01/23/2010 Lichenification and Lichen Simplex Chronicus [L*03/26/2007 01/23/2010 DERMATOFIBROMA///BE NIGN KAILEY SKIN ARM [D23.60] 03/26/2007 01/23/2010 Contact Dermatitis and Other Eczema, due to Uns*03/26/2007 01/23/2010 SACROILIITIS [M46.1] 05/06/2009 01/23/2010 Routine general medical examination at [facility]*01/23/2010 12/06/2012 Class: Chronic Routine gynecological examination [Z01.419] 01/23/2010 02/22/2014 Class: Chronic Morbid Obesity [E66.01] 01/23/2010 Lumbar Disc Disorder [M51.9] 02/16/2010 Routine general medical examination at [facility]*12/06/2012 02/22/2014 Anxiety [F41.9] 06/07/2014 Type 2 diabetes mellitus with microalbuminuria,*0 07/04/2018 Fatty liver [K76.0] 07/21/2018 08/05/2024 LETITIA (obstructive sleep apnea) [G47.33] 07/21/2018 Microalbuminuria [R80.9] 09/30/2018 09/04/2022 Obesity, Class III, BMI >= 40 [E66.813] 11/26/2019 09/04/2022 Prolonged Q-T interval on ECG [R94.31] 03/31/2020 Calculus of kidney [N20.0] 09/04/2022 Chest pain [R07.9] 09/04/2022 09/04/2022 Contusion of knee [S80.00XA] 09/04/2022 09/04/2022 Essential (primary) hypertension [I10] 08/16/2022 Fall [W19.XXXA] 09/04/2022 09/04/2022 Headache [R51] 09/04/2022 09/04/2022 Herniation of lumbar intervertebral disc with r*06/10/2017 History of type 2 diabetes mellitus [Z86.39] (more content not included)... Normal [facility] Chiropractic Reporton 2024 Chiropractic Report [facility] Chiropractic [facility] [place] [address] OFFICE VISIT Date of Service: 03/22/25 MR#: [id number] Acct: [id number] Name: TORI GRAY Rep #: [id number] : 1980 Provider: CONCEPCIÓN Montgomery Age/Sex: 44/F Location: [facility] [place] Status: Signed Intake Vital Signs 03/09/25 09:20 03/22/25 09:08 Height 5 ft 7 in 5 ft 7 in Intake Visit Reasons: Back pain Chief Complaint: Left shoulder pain Allergies Corticosteroids (Glucocorticoids) (steroids) Allergy (Verified 03/22/25 09:51) Hives lidocaine Adverse Reaction (Intermediate, Verified 03/22/25 09:51) Hives Medications ???Medication ???Instructions ???Recorded ???Confirmed ???Type blood sugar diagnostic (Blood #10 ea 04/26/20 03/22/25 History Glucose Test strips) ipratropium bromide 21 mcg (0.03 2 spray intranasal BID allergies 1 03/22/25 History %) nasal spray albuterol sulfate 90 mcg/actuation 2 puff inhalation Q4H PRN 03/22/25 History aerosol inhaler shortness of breath or wheezing fexofenadine 180 mg tablet 180 mg PO DAILY allergies 08/10/22 03/22/25 History (Allergy Relief (fexofenadine)) levonorgestrel 17.5 mcg/24 hr (up 1 device intrauterine ONCE 08/10/22 03/22/25 History to 5 yrs) 19.5mg intrauterine control device tizanidine 4 mg tablet 4 mg PO Q8H PRN Muscle Spasm 08/1003/22/25 History omeprazole 20 mg capsule,delayed 20 mg PO DAILY PRN gerd 08/16/22 0 03/22/25 History release topiramate 100 mg tablet 100 mg PO BID seizures 08/16/22 History fluoxetine 20 mg capsule 20 mg PO DAILY mental health 12/2803/22/25 History gabapentin 300 mg capsule 300 mg PO BID nerve pain 12/28/22 03/22/25 History lisinopril 10 mg tablet 10 mg PO DAILY blood pressure 12/0603/22/25 History ondansetron HCl 4 mg tablet 4 mg PO Q8H PRN nausea 12/28/22 History rimegepant 75 mg disintegrating 75 mg PO DAILY PRN migraine 03/22/25 History tablet (Nurtec ODT) headache semaglutide 0.25 mg or 0.5 mg (2 0.5 mg subcut QWEEK 10/16/2403/22 History mg/3 mL) subcutaneous pen injector (Ozempic) potassium chloride 20 mEq oral 20 meq PO BID 7 days #30 ea 03/22/25 Rx packet [facility] Medical History Abnormal ECG Prolonged Q-T interval on ECG Microalbuminuria LETITIA (obstructive sleep apnea) Back pain 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 Nausea Left shoulder pain Pain of left scapula Left upper extremity numbness Left shoulder strain Obstructive Sleep Apnea-Hypopnea Syndrome Fatty liver Type 2 diabetes mellitus with microalbuminuria Type 2 diabetes mellitus without complication, with long-term current use of insulin History of stent into kidney Anxiety Acute cholecystitis Segmental and somatic dysfunction of cervical region Migraines Acute bronchitis Acute respiratory insufficiency Dyspnea History of obstructive sleep apnea Elevated triglycerides with high cholesterol Calculus of left kidney Nonalcoholic hepatosteatosis Hydroureter, left Hydronephrosis, left Acute kidney injury Pyelonephritis Nephrolithiasis Obesity Hypertension Type 2 diabetes mellitus Segmental and somatic dysfunction of lumbar region Vertigo Left upper quadrant abdominal pain Dysuria Urinary tract infection Segmental and somatic dysfunction of pelvic region Segmental and somatic dysfunction of thoracic region Lumbar facet arthropathy Lumbosacral spondylosis Radiculopathy of lumbosacral region Disc displacement, lumbar Degeneration of intervertebral disc of lumbosacral region Surgical History History of urethral stent ( 2019) Hx laparoscopic cholecystectomy ( 2006) H/O: ( 2006) Family History Father Diabetes Myocardial infarction Pancreatic cancer Mother Alcohol abuse Drug abuse Grandfather Diabetes Grandmother Lung cancer Grandmother Heart disease Triple bypass surgery Social History Smoking Status: Never smoker alcohol intake: never substance use type: does not use caffeine: Yes Type: coffee what type of physical activity do you participate in: walking frequency: daily seatbelt use: always do you feel safe at home: Yes HPI Back pain Chief Complaint: low back, left neck pain Visit Number: 3 Details: Tori is a 44 y/o F here today to f/u with ongoing neck and low back pain. Pt. continues to c/o increased pain in her left neck/shoulder/upper back over the last few weeks. The pain extends into her left trap and under her shoulder blade. She states she had an a (more content not included)... Normal [facility] Orthopedic Visit Reporton Orthopedic Visit Report [facility] [address] [place] [address] OFFICE VISIT Date of Service: 03/22/25 MR#: [id number] Acct: [id number] Name: TORI GRAY Rep #: [id number] : 1980 Provider: Dr. Brett kessler MD Age/Sex: 44/F Location: [facility] Status: Signed Intake Vital Signs 11/11/24 05:55 03/09/25 09:20 03/22/25 09:08 Height 5 ft 7 in 5 ft 7 in 5 ft 7 in Intake Visit Reasons: LEFT SHOULDER Chief Complaint: Left shoulder pain Accompanied by: Self Is patient in pain?: Yes Pain scale (1-10): 6 Allergies Corticosteroids (Glucocorticoids) (steroids) Allergy (Verified 03/22/25 09:12) Hives lidocaine Adverse Reaction (Intermediate, Verified 03/22/25 09:12) Hives Medications ???Medication ???Instructions ???Recorded ???Confirmed ???Type blood sugar diagnostic (Blood #10 ea 04/26/20 03/22/25 History Glucose Test strips) ipratropium bromide 21 mcg (0.03 2 spray intranasal BID allergies 1 03/22/25 History %) nasal spray albuterol sulfate 90 mcg/actuation 2 puff inhalation Q4H PRN 03/22/25 History aerosol inhaler shortness of breath or wheezing fexofenadine 180 mg tablet 180 mg PO DAILY allergies 08/10/22 03/22/25 History (Allergy Relief (fexofenadine)) levonorgestrel 17.5 mcg/24 hr (up 1 device intrauterine ONCE 08/10/22 03/22/25 History to 5 yrs) 19.5mg intrauterine control device tizanidine 4 mg tablet 4 mg PO Q8H PRN Muscle Spasm 08/1003/22/25 History omeprazole 20 mg capsule,delayed 20 mg PO DAILY PRN gerd 08/16/22 0 03/22/25 History release topiramate 100 mg tablet 100 mg PO BID seizures 08/16/22 History fluoxetine 20 mg capsule 20 mg PO DAILY mental health 12/2803/22/25 History gabapentin 300 mg capsule 300 mg PO BID nerve pain 12/28/22 03/22/25 History lisinopril 10 mg tablet 10 mg PO DAILY blood pressure 12/0603/22/25 History ondansetron HCl 4 mg tablet 4 mg PO Q8H PRN nausea 12/28/22 History rimegepant 75 mg disintegrating 75 mg PO DAILY PRN migraine 03/22/25 History tablet (Nurtec ODT) headache semaglutide 0.25 mg or 0.5 mg (2 0.5 mg subcut QWEEK 10/16/2403/22 History mg/3 mL) subcutaneous pen injector (Ozempic) potassium chloride 20 mEq oral 20 meq PO BID 7 days #30 ea 03/22/25 Rx packet Have you fallen in the past year?: Yes [facility] Medical History Abnormal ECG Prolonged Q-T interval on ECG Microalbuminuria LETITIA (obstructive sleep apnea) Back pain 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 Nausea Left shoulder pain Pain of left scapula Left upper extremity numbness Left shoulder strain Obstructive Sleep Apnea-Hypopnea Syndrome Fatty liver Type 2 diabetes mellitus with microalbuminuria Type 2 diabetes mellitus without complication, with long-term current use of insulin History of stent into kidney Anxiety Acute cholecystitis Segmental and somatic dysfunction of cervical region Migraines Acute bronchitis Acute respiratory insufficiency Dyspnea History of obstructive sleep apnea Elevated triglycerides with high cholesterol Calculus of left kidney Nonalcoholic hepatosteatosis Hydroureter, left Hydronephrosis, left Acute kidney injury Pyelonephritis Nephrolithiasis Obesity Hypertension Type 2 diabetes mellitus Segmental and somatic dysfunction of lumbar region Vertigo Left upper quadrant abdominal pain Dysuria Urinary tract infection Segmental and somatic dysfunction of pelvic region Segmental and somatic dysfunction of thoracic region Lumbar facet arthropathy Lumbosacral spondylosis Radiculopathy of lumbosacral region Disc displacement, lumbar Degeneration of intervertebral disc of lumbosacral region Surgical History History of urethral stent ( 2018) Hx laparoscopic cholecystectomy ( 2005) H/O: ( 2005) Family History Father Diabetes Myocardial infarction Pancreatic cancer Mother Alcohol abuse Drug abuse Grandfather Diabetes Grandmother Lung cancer Grandmother Heart disease Triple bypass surgery Social History Smoking Status: Never smoker alcohol intake: never substance use type: does not use caffeine: Yes Type: coffee what type of physical activity do you participate in: walking frequency: daily seatbelt use: always do you feel safe at home: Yes HPI LEFT SHOULDER Details: This documentation accurately reflects the service provided and the decisions made by me, Dr. West (more content not included)... [facility] 03-19-2025 [facility] Telephone (NENMMN) ---- TORI GRAY ([id number]) 1980 F Date Time Provider Department 03/19/25 AMANDA ARTEAGA [facility] During your visit today, we recorded the following information about you: Nakia Caraballo RN 03/19/2025 3:19 PM Signed Botox referral sent to pharmacy as patient would like to restart botox. Last botox 09/03/24. Latonia Caraballo RN, BSN Allergies As of Date: 03/19/2025 Noted Allergy Reaction FARXIGA (DAPAGLIFLOZIN) 08/05/2024 8 - GI Upset LIDOCAINE 12/24/2019 4 - Hives METFORMIN 08/05/2024 8 - GI Upset STEROIDS (BETAMETHASONE DIPROPION* 2 4 - Hives Date Reviewed: 01/22/2025 Reviewed by: Nirmala Storey LPN - Fully Assessed Reason for Visit: Botox Referral [Other] Prescriptions as of 03/19/2025 - divalproex ER (DEPAKOTE ER) 500 mg 24 hr tablet Depakote ER 500 mg one tablet twice a day for the first five days, then take take one tablet once a day for the next five days, then stop using depakote - tiZANidine (ZANAFLEX) 4 mg tablet Take 1 tablet by mouth every 8 hours as needed (muscle spasms). - FLUoxetine (PROZAC) 20 mg capsule Take 1 capsule by mouth once daily. - gabapentin (NEURONTIN) 300 mg capsule Take 1 capsule by mouth two times a day for 180 days. - semaglutide (OZEMPIC) 1 mg/dose (4 mg/3 mL) pen Inject 1 mg subcutaneously one time a week. - topiramate (TOPAMAX) 100 mg tablet Take 1 tablet by mouth two times a day. - potassium chloride (KLOR-CON) 20 mEq packet Take 20 mEq by mouth as needed. - albuterol HFA (VENTOLIN HFA) 90 mcg/actuation inhaler Inhale 2 Puffs as instructed every 4 hours as needed for wheezing/shortness of breath. - ondansetron (ZOFRAN) 4 mg tablet Take 1 tablet by mouth every 8 hours as needed for nausea/vomiting. - lisinopril (ZESTRIL) 10 mg tablet Take 1 tablet by mouth once daily. - rimegepant (NURTEC ODT) 75 mg disintegrating tablet Take 1 tablet by mouth once daily as needed. - naratriptan (AMERGE) 2.5 mg tablet Take 1 tablet (2.5 mg) by mouth as directed. at the onset of headache; if headache returns or does not fully resolve, the dose may be repeated after 4 hours; do not exceed five(5) mg in 24 hours. NO more than 10 doses a month. - fexofenadine (ALMA ALLERGY) 180 mg tablet Take 1 tablet by mouth once daily. - Ipratropium [place] (ATROVENT) 21 mcg (0.03 %) nasal spray Use 2 Sprays in the nose every 12 hours. - omeprazole (PRILOSEC) 20 mg capsule Take 1 capsule by mouth daily before breakfast. 1/2 hr before meal. - MAGNESIUM ORAL Take by mouth. - meclizine (ANTIVERT) 25 mg tab Take 25 mg by mouth once daily. Takes two tabs in am - BIPAP - levonorgestrel (KYLEENA) 17.5 mcg/24 hrs (5 yrs) 19.5 mg IUD 1 Each by INTRAUTERINE route as directed. - Herrick-3 Fatty Acids (FISH OIL) 500 mg cap Take 1 capsule by mouth once daily. - blood sugar diagnostic (BLOOD GLUCOSE TEST) test strip Test blood sugar(s) 1 times daily. Dx: Type 2 DM - Controlled E11.9 Insulin: Yes - Lancets lancets Test blood sugar(s) 1 times daily. Dx: Type 2 DM - Controlled E11.9 Insulin: No - Okszkjpz-Ws-Idb-Fe- FA tab Take 1 tablet by mouth once daily. Meds Comments as of 03/01/2019: Percocet March 01, 2019 Stephanie Suresh RN Problem List As Of Date 03/19/2025 Noted Resolved SUPERVIS NORMAL 1ST PREG [Z34.00] 11/09/2005 07/02/2006 TRANS HYPERTEN-ANTEPART [O13.9] 06/19/2006 07/02/2006 KERATOSIS PILARIS////SKIN ANOMALY NEC [Q82.8] 03/26/2007 01/23/2010 Other Acne [L70.8] 03/26/2007 FOLLICULITIS///HAIR DISEASES NEC [L67.8, L73.8] 03/26/2007 01/23/2010 Lichenification and Lichen Simplex Chronicus [L*03/26/2007 01/23/2010 DERMATOFIBROMA///BE NIGN KAILEY SKIN ARM [D23.60] 03/26/2007 01/23/2010 Contact Dermatitis and Other Eczema, due to Uns*03/26/2007 01/23/2010 SACROILIITIS [M46.1] 05/06/2009 01/23/2010 Routine general medical examination at a health*01/23/2010 12/06/2012 Class: Chronic Routine gynecological examination [Z01.419] 01/23/2010 02/22/2014 Class: Chronic Morbid Obesity [E66.01] 01/23/2010 Lumbar Disc Disorder [M51.9] 02/16/2010 Routine general medical examination at a [facility]*12/06/2012 02/22/2014 Anxiety [F41.9] 06/07/2014 Type 2 diabetes mellitus with microalbuminuria,*0 07/04/2018 Fatty liver [K76.0] 07/21/2018 08/05/2024 LETITIA (obstructive sleep apnea) [G47.33] 07/21/2018 Microalbuminuria [R80.9] 09/30/2018 09/04/2022 Obesity, Class III, BMI >= 40 [E66.813] 11/26/2019 09/04/2022 Prolonged Q-T interval on ECG [R94.31] 03/31/2020 Calculus of kidney [N20.0] 09/04/2022 Chest pain [R07.9] 09/04/2022 09/04/2022 Contusion of knee [S80.00XA] 09/04/2022 09/04/2022 Essential (primary) hypertension [I10] 08/16/2022 Fall [W19.XXXA] 09/04/2022 09/04/2022 Headache [R51] 09/04/2022 09/04/2022 Herniation of lumbar intervertebral disc with r*06/10/2017 History of type 2 diabetes mellitus [Z86.39] 09/04/2022 11 (more content not included)... Normal [facility] Shoulder min 2 Viewson 03-11 Shoulder min 2 Views [facility] [address] [place] [address] Shoulder min 2 Views MR#: [id number] Acct: [id number] Name: TORI GRAY Rep #: [id number] : 1980 F 44 From: Jackson Laureano i, MD PCP: Dr. Ivette Grimes MD Status: REG CLI Study: Shoulder min 2 Views Date of Exam: 03/11/25 Exam# [id number] Ordering Dr: Brett Quiroga MD PROCEDURE: SHOULDER MIN 2 VIEWS 03/11/2025 REASON FOR EXAM: PAIN TECHNIQUE: Five views of the left shoulder COMPARISON: Left shoulder x-ray dated 05/03/2021. FINDINGS: The left shoulder is in anatomic alignment. There is no fracture or dislocation seen. No significant osteoarthritis is seen. RAD/Shoulder min 2 Views IMPRESSION: Unremarkable left shoulder series. Reading Location: [facility] CC: Dr. Brett Quiroga MD; Dr. 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 Air: Signed Normal [facility] Chiropractic Reporton 2024 Chiropractic Report [facility] [address] [place] [id number] OFFICE VISIT Date of Service: 03/09/25 MR#: [id number] Acct: [id number] Name: TORI GRAY Rep #: [id number] : 1980 Provider: CONCEPCIÓN Montgomery Age/Sex: 44/F Location[facility] Status: Signed Intake Vital Signs 11/11/24 05:55 Height 5 ft 7 in Intake Visit Reasons: Back pain Chief Complaint: low Back pain/neck pain Is patient in pain?: Yes (Neck, Left UBP, Left shoulder ) Pain scale (1-10): 4 Allergies Corticosteroids (Glucocorticoids) (steroids) Allergy (Verified 03/09/25 09:40) Hives lidocaine Adverse Reaction (Intermediate, Verified 03/09/25 09:40) Hives Medications ???Medication ???Instructions ???Recorded ???Confirmed ???Type blood sugar diagnostic (Blood #10 ea 04/26/20 03/09/25 History Glucose Test strips) ipratropium bromide 21 mcg (0.03 2 spray intranasal BID allergies 1 03/09/25 History %) nasal spray albuterol sulfate 90 mcg/actuation 2 puff inhalation Q4H PRN 03/09/25 History aerosol inhaler shortness of breath or wheezing fexofenadine 180 mg tablet 180 mg PO DAILY allergies 08/10/22 03/09/25 History (Allergy Relief (fexofenadine)) levonorgestrel 17.5 mcg/24 hr (up 1 device intrauterine ONCE 08/10/22 03/09/25 History to 5 yrs) 19.5mg intrauterine control device tizanidine 4 mg tablet 4 mg PO Q8H PRN Muscle Spasm 08/1003/09/25 History omeprazole 20 mg capsule,delayed 20 mg PO DAILY PRN gerd 08/16/22 0 03/09/25 History release topiramate 100 mg tablet 100 mg PO BID seizures 08/16/22 History fluoxetine 20 mg capsule 20 mg PO DAILY mental health 12/2803/09/25 History gabapentin 300 mg capsule 300 mg PO BID nerve pain 12/28/22 03/09/25 History lisinopril 10 mg tablet 10 mg PO DAILY blood pressure 12/0603/09/25 History ondansetron HCl 4 mg tablet 4 mg PO Q8H PRN nausea 12/28/22 History rimegepant 75 mg disintegrating 75 mg PO DAILY PRN migraine 03/09/25 History tablet (Nurtec ODT) headache semaglutide 0.25 mg or 0.5 mg (2 0.5 mg subcut QWEEK 10/16/2403/09 History mg/3 mL) subcutaneous pen injector (Ozempic) potassium chloride 20 mEq oral 20 meq PO BID 7 days #30 ea 03/09/25 Rx packet [facility] Medical History Abnormal ECG Prolonged Q-T interval on ECG Microalbuminuria LETITIA (obstructive sleep apnea) Back pain 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 Nausea Left shoulder pain Pain of left scapula Left upper extremity numbness Left shoulder strain Obstructive Sleep Apnea-Hypopnea Syndrome Fatty liver Type 2 diabetes mellitus with microalbuminuria Type 2 diabetes mellitus without complication, with long-term current use of insulin History of stent into kidney Anxiety Acute cholecystitis Segmental and somatic dysfunction of cervical region Migraines Acute bronchitis Acute respiratory insufficiency Dyspnea History of obstructive sleep apnea Elevated triglycerides with high cholesterol Calculus of left kidney Nonalcoholic hepatosteatosis Hydroureter, left Hydronephrosis, left Acute kidney injury Pyelonephritis Nephrolithiasis Obesity Hypertension Type 2 diabetes mellitus Segmental and somatic dysfunction of lumbar region Vertigo Left upper quadrant abdominal pain Dysuria Urinary tract infection Segmental and somatic dysfunction of pelvic region Segmental and somatic dysfunction of thoracic region Lumbar facet arthropathy Lumbosacral spondylosis Radiculopathy of lumbosacral region Disc displacement, lumbar Degeneration of intervertebral disc of lumbosacral region Surgical History History of urethral stent ( 2018) Hx laparoscopic cholecystectomy ( 2005) H/O: ( 2005) Family History Father Diabetes Myocardial infarction Pancreatic cancer Mother Alcohol abuse Drug abuse Grandfather Diabetes Grandmother Lung cancer Grandmother Heart disease Triple bypass surgery Social History Smoking Status: Never smoker alcohol intake: never substance use type: does not use caffeine: Yes Type: coffee what type of physical activity do you participate in: walking frequency: daily seatbelt use: always do you feel safe at home: Yes HPI Back pain Chief Complaint: Back pain Visit Number: 2 Details: Tori is a 44 y/o F here today to f/u with ongoing neck and low back pain. She reports an increase in her left neck/shoulder/upper back pain over the last few weeks. The pain extends into her left trap and under her sh (more content not included)... [facility] ([facility]) ---- TORI GRAY ([id number]) 1980 F Date Time Provider Department 03/04/25 AMANDA ARTEAGA During your visit today, we recorded the following information about you: Beata Pitts LPN 03/04/2025 2:43 PM Signed Tried contacting patient to confirm that she just wants to discuss botox rather than get injections for her upcoming appt as it's a virtual visit, per [place]. Beata Pitts LPN March 04, 2025 2:42 PM Allergies As of Date: 03/04/2025 Noted Allergy Reaction FARXIGA (DAPAGLIFLOZIN) 08/05/2024 8 - GI Upset LIDOCAINE 12/24/2019 4 - Hives METFORMIN 08/05/2024 8 - GI Upset STEROIDS (BETAMETHASONE DIPROPION* 2 4 - Hives Date Reviewed: 01/22/2025 Reviewed by: Nirmala Storey LPN - Fully Assessed Prescriptions as of 03/04/2025 - meloxicam (MOBIC) 15 mg tablet Take 1 tablet by mouth once daily for 10 days. - tiZANidine (ZANAFLEX) 4 mg tablet Take 1 tablet by mouth every 8 hours as needed (muscle spasms). - FLUoxetine (PROZAC) 20 mg capsule Take 1 capsule by mouth once daily. - gabapentin (NEURONTIN) 300 mg capsule Take 1 capsule by mouth two times a day for 180 days. - semaglutide (OZEMPIC) 1 mg/dose (4 mg/3 mL) pen Inject 1 mg subcutaneously one time a week. - topiramate (TOPAMAX) 100 mg tablet Take 1 tablet by mouth two times a day. - potassium chloride (KLOR-CON) 20 mEq packet Take 20 mEq by mouth as needed. - albuterol HFA (VENTOLIN HFA) 90 mcg/actuation inhaler Inhale 2 Puffs as instructed every 4 hours as needed for wheezing/shortness of breath. - ondansetron (ZOFRAN) 4 mg tablet Take 1 tablet by mouth every 8 hours as needed for nausea/vomiting. - lisinopril (ZESTRIL) 10 mg tablet Take 1 tablet by mouth once daily. - rimegepant (NURTEC ODT) 75 mg disintegrating tablet Take 1 tablet by mouth once daily as needed. - naratriptan (AMERGE) 2.5 mg tablet Take 1 tablet (2.5 mg) by mouth as directed. at the onset of headache; if headache returns or does not fully resolve, the dose may be repeated after 4 hours; do not exceed five(5) mg in 24 hours. NO more than 10 doses a month. - fexofenadine (ALMA ALLERGY) 180 mg tablet Take 1 tablet by mouth once daily. - Ipratropium [place] (ATROVENT) 21 mcg (0.03 %) nasal spray Use 2 Sprays in the nose every 12 hours. - omeprazole (PRILOSEC) 20 mg capsule Take 1 capsule by mouth daily before breakfast. 1/2 hr before meal. - MAGNESIUM ORAL Take by mouth. - meclizine (ANTIVERT) 25 mg tab Take 25 mg by mouth once daily. Takes two tabs in am - BIPAP - levonorgestrel (KYLEENA) 17.5 mcg/24 hrs (5 yrs) 19.5 mg IUD 1 Each by INTRAUTERINE route as directed. - Herrick-3 Fatty Acids (FISH OIL) 500 mg cap Take 1 capsule by mouth once daily. - blood sugar diagnostic (BLOOD GLUCOSE TEST) test strip Test blood sugar(s) 1 times daily. Dx: Type 2 DM - Controlled E11.9 Insulin: Yes - Lancets lancets Test blood sugar(s) 1 times daily. Dx: Type 2 DM - Controlled E11.9 Insulin: No - Sbzshduj-Ij-Yns-Fe- FA tab Take 1 tablet by mouth once daily. Meds Comments as of 03/01/2019: Percocet March 01, 2019 Stephanie Suresh RN Problem List As Of Date 03/04/2025 Noted Resolved SUPERVIS NORMAL 1ST PREG [Z34.00] 11/09/2005 07/02/2006 TRANS HYPERTEN-ANTEPART [O13.9] 06/19/2006 07/02/2006 KERATOSIS PILARIS////SKIN ANOMALY NEC [Q82.8] 03/26/2007 01/23/2010 Other Acne [L70.8] 03/26/2007 FOLLICULITIS///HAIR DISEASES NEC [L67.8, L73.8] 03/26/2007 01/23/2010 Lichenification and Lichen Simplex Chronicus [L*03/26/2007 01/23/2010 DERMATOFIBROMA///BE NIGN KAILEY SKIN ARM [D23.60] 03/26/2007 01/23/2010 Contact Dermatitis and Other Eczema, due to Uns*03/26/2007 01/23/2010 SACROILIITIS [M46.1] 05/06/2009 01/23/2010 Routine general medical examination at a health*01/23/2010 12/06/2012 Class: Chronic Routine gynecological examination [Z01.419] 01/23/2010 02/22/2014 Class: Chronic Morbid Obesity [E66.01] 01/23/2010 Lumbar Disc Disorder [M51.9] 02/16/2010 Routine general medical examination at a health*12/06/2012 02/22/2014 Anxiety [F41.9] 06/07/2014 Type 2 diabetes mellitus with microalbuminuria,*0 07/04/2018 Fatty liver [K76.0] 07/21/2018 08/05/2024 LETITIA (obstructive sleep apnea) [G47.33] 07/21/2018 Microalbuminuria [R80.9] 09/30/2018 09/04/2022 Obesity, Class III, BMI >= 40 [E66.813] 11/26/2019 09/04/2022 Prolonged Q-T interval on ECG [R94.31] 03/31/2020 Calculus of kidney [N20.0] 09/04/2022 Chest pain [R07.9] 09/04/2022 09/04/2022 Contusion of knee [S80.00XA] 09/04/2022 09/04/2022 Essential (primary) hypertension [I10] 08/16/2022 Fall [W19.XXXA] 09/04/2022 09/04/2022 Headache [R51] 09/04/2022 09/04/2022 Herniation of lumbar intervertebral disc with r*06/10/2017 History of type 2 diabetes mellitus [Z86.39] 09/04/2022 09/04/2022 Low back pain, unspecified [M54.50] 04/17/2022 09/04/2022 Migraine headache [G43. (more content not included)... [facility] ([facility] ---- TORI GRAY ([id number]) 1980 F Date Time Provider Department 02/24/25 IVETTE MEJIA JR During your visit today, we recorded the following information about you: Roya Jaramillo LPN 02/25/2025 5:02 PM Signed Please schedule with neuro félix to discuss botox. Please schedule in new spot. Pt has had botox prior but needs new referral to continue. PRINCESS Pierson Ida 03/01/2025 10:58 AM Signed Contacted patient scheduled V V consult for headache Botox injection on 03-09-25 @ 7:25 am. Hyacitnh Mario Allergies As of Date: 02/24/2025 Noted Allergy Reaction FARXIGA (DAPAGLIFLOZIN) 08/05/2024 8 - GI Upset LIDOCAINE 12/24/2019 4 - Hives METFORMIN 08/05/2024 8 - GI Upset STEROIDS (BETAMETHASONE DIPROPION* 2 4 - Hives Date Reviewed: 01/22/2025 Reviewed by: Nirmala Storey LPN - Fully Assessed Reason for Visit: Appointment [186] Prescriptions as of 03/01/2025 - tiZANidine (ZANAFLEX) 4 mg tablet Take 1 tablet by mouth every 8 hours as needed (muscle spasms). - FLUoxetine (PROZAC) 20 mg capsule Take 1 capsule by mouth once daily. - gabapentin (NEURONTIN) 300 mg capsule Take 1 capsule by mouth two times a day for 180 days. - semaglutide (OZEMPIC) 1 mg/dose (4 mg/3 mL) pen Inject 1 mg subcutaneously one time a week. - topiramate (TOPAMAX) 100 mg tablet Take 1 tablet by mouth two times a day. - potassium chloride (KLOR-CON) 20 mEq packet Take 20 mEq by mouth as needed. - albuterol HFA (VENTOLIN HFA) 90 mcg/actuation inhaler Inhale 2 Puffs as instructed every 4 hours as needed for wheezing/shortness of breath. - ondansetron (ZOFRAN) 4 mg tablet Take 1 tablet by mouth every 8 hours as needed for nausea/vomiting. - lisinopril (ZESTRIL) 10 mg tablet Take 1 tablet by mouth once daily. - rimegepant (NURTEC ODT) 75 mg disintegrating tablet Take 1 tablet by mouth once daily as needed. - naratriptan (AMERGE) 2.5 mg tablet Take 1 tablet (2.5 mg) by mouth as directed. at the onset of headache; if headache returns or does not fully resolve, the dose may be repeated after 4 hours; do not exceed five(5) mg in 24 hours. NO more than 10 doses a month. - fexofenadine (ALMA ALLERGY) 180 mg tablet Take 1 tablet by mouth once daily. - Ipratropium [place] (ATROVENT) 21 mcg (0.03 %) nasal spray Use 2 Sprays in the nose every 12 hours. - omeprazole (PRILOSEC) 20 mg capsule Take 1 capsule by mouth daily before breakfast. 1/2 hr before meal. - MAGNESIUM ORAL Take by mouth. - meclizine (ANTIVERT) 25 mg tab Take 25 mg by mouth once daily. Takes two tabs in am - BIPAP - levonorgestrel (KYLEENA) 17.5 mcg/24 hrs (5 yrs) 19.5 mg IUD 1 Each by INTRAUTERINE route as directed. - Herrick-3 Fatty Acids (FISH OIL) 500 mg cap Take 1 capsule by mouth once daily. - blood sugar diagnostic (BLOOD GLUCOSE TEST) test strip Test blood sugar(s) 1 times daily. Dx: Type 2 DM - Controlled E11.9 Insulin: Yes - Lancets lancets Test blood sugar(s) 1 times daily. Dx: Type 2 DM - Controlled E11.9 Insulin: No - Fwlrigew-Qu-Img-Fe- FA tab Take 1 tablet by mouth once daily. Meds Comments as of 03/01/2019: Percocet March 01, 2019 Stephanie Suresh RN Problem List As Of Date 02/24/2025 Noted Resolved SUPERVIS NORMAL 1ST PREG [Z34.00] 11/09/2005 07/02/2006 TRANS HYPERTEN-ANTEPART [O13.9] 06/19/2006 07/02/2006 KERATOSIS PILARIS////SKIN ANOMALY NEC [Q82.8] 03/26/2007 01/23/2010 Other Acne [L70.8] 03/26/2007 FOLLICULITIS///HAIR DISEASES NEC [L67.8, L73.8] 03/26/2007 01/23/2010 Lichenification and Lichen Simplex Chronicus [L*03/26/2007 01/23/2010 DERMATOFIBROMA///BE NIGN KAILEY SKIN ARM [D23.60] 03/26/2007 01/23/2010 Contact Dermatitis and Other Eczema, due to Uns*03/26/2007 01/23/2010 SACROILIITIS [M46.1] 05/06/2009 01/23/2010 Routine general medical examination at [facility]*01/23/2010 12/06/2012 Class: Chronic Routine gynecological examination [Z01.419] 01/23/2010 02/22/2014 Class: Chronic Morbid Obesity [E66.01] 01/23/2010 Lumbar Disc Disorder [M51.9] 02/16/2010 Routine general medical examination at [facility]*12/06/2012 02/22/2014 Anxiety [F41.9] 06/07/2014 Type 2 diabetes mellitus with microalbuminuria,*0 07/04/2018 Fatty liver [K76.0] 07/21/2018 08/05/2024 LETITIA (obstructive sleep apnea) [G47.33] 07/21/2018 Microalbuminuria [R80.9] 09/30/2018 09/04/2022 Obesity, Class III, BMI >= 40 [E66.813] 11/26/2019 09/04/2022 Prolonged Q-T interval on ECG [R94.31] 03/31/2020 Calculus of kidney [N20.0] 09/04/2022 Chest pain [R07.9] 09/04/2022 09/04/2022 Contusion of knee [S80.00XA] 09/04/2022 09/04/2022 Essential (primary) hypertension [I10] 08/16/2022 Fall [W19.XXXA] 09/04/2022 09/04/2022 Headache [R51] 09/04/2022 09/04/2022 Herniation of lumbar intervertebral disc with r*06/10/2017 History of type 2 diabetes mellitus [Z86.39] 09/04/2022 09/04/2022 Low (more content not included)... Normal [facility] Inital Evaluation (1) - PTon 02-08-2025 Inital Evaluation (1) - PT [facility] Physical Therapy [facility] [address] [place] [address] / REHABILITATION SERVICES INITIAL EVALUATION MR#: [id number] Acct: [id number] Name: TORI GRAY Rep #: [id number] : 1980 44 From: Santana Ruano DPT Referring Dr.: Dr. Ivette Grimes MD Status: REG RCR Insurance: [employer] SELF PAY INSURANCE Patient's Visit Information Visit Information Visit Information: TORI GRAY is a 44 year old F referred to Physical Therapy by Dr. Ivette Grimes MD with a diagnosis of L shoulder pain. Date of Evaluation: 02/08/25 Physical Therapist: PATRICIA DriverT Visit Plan Frequency: 2x /Week Duration: 6 Weeks Plan: 1) DN to L UT and levator scap 2) levator scap and UT stretch 3) mid trap, postural strengthening. 4) trial cervical retraction and extension as well. Subjective Subjective: Pt. is here today for her initial evaluation with diagnosis of chronic L shoulder pain. pt. reports having a history of L shoulder pain. Pt. reports having pain down her arm, it feels like tingling at times. She reports increased symptoms with certain arm movements, but not consistently. Pt. reports changing her sleep pattern due to tingling. Pt. is going to gym and feels this helps. Pt. did change her job where she is doing more sitting. Pt. reports no changes in strength. She had same issues previously which did get better with a nerve block. Pain L shoulder: Pain Intensity (Out of 10): 2 Pain Intensity Range: 1 and 6 Objective Objective: POSTURE: Pt. has slight fwrd head posture. Pt. has rounded shoulders. PALPATION: Pt. has tenderness at L UT and L levator scap. No much through anterior shoulder.' NEURO: normal sensation and normal DTR of BUEs. ROM: B shoulder ROM: full without increase in symptoms. CERVICAL SPINE: flexion nil loss NE, ext min loss decrease no better, SB min loss NE bilat, rotation min loss NE. MMT: Pt. has slight weakness in L shoulder 4/5 flexion, abd, and IR motions. 5/5 rest of motion. R shoulder 5/5 throughout. Special Tests L Shoulder Drop Sign - IS Test: Negative L Shoulder Empty Can - SS: Negative L Shoulder Belly Press - SupScap: Negative L Shoulder Neer - Impingement: Negative L Shoulder Yeargasons - SLAP: Negative L Shoulder Speeds Test - Labrum/Biceps: Negative L Shoulder Sulcus Sign - Inferior Laxity: Negative Balance/Special Test Scores Quick DASH Score: 25.0000 Goals Goal 1:: LTG: Pt. to be I with HEP. Goal Time Frame: 4-6 Weeks Goal 2:: STG: pt. to sleep without increase in symptoms. Goal Time Frame: 2 Weeks Goal 3:: LTG: Pt. to have symmetrical strength between BUEs. Goal Time Frame: 4-6 Weeks Goal 4:: LTG: Pt. to report no N/T in LUE with all work and daily activities. Goal Time Frame: 4-6 Weeks Rehabilitation Potential Physical Therapy Diagnosis: Pt. has signs and symptoms consistent with L shoulder pain. Pt. has some weakness as well has increased pain. Pt. would benefit from PT to increase her strength and decrease her pain. Rehabilitation Potential: Good Anticipated Interventions Patient/Client Instruction: Educate patient on: Condition, Plan of Care, Risk Factors and Benefits of Fitness Program For the Purpose of:: To improve decision making, To facilitate caregiver knowledge, To improve self management, To prevent re-injury, To improve ability to perform tasks related to life management and To improve tolerance to ADL's Therapeutic Exercise to Include: Strength training, Postural training, Flexibilty training, Passive ROM, Active ROM and Scapular Strength/Stabilizat ion For the Purpose of:: To decrease pain, To increase ROM, To improve nutrient delivery to tissue, To increase oxygenation perfusion, To improve muscle performance and motor function, To improve ability to perform ADL's, To improve health of tissue, To decrease soft tissue restriction and To increase flexibility/ROM Manual Therapy Techniques to Include: Functional dry needling and Soft tissue mobilization For the Purpose of:: To decrease pain, To decrease swelling/inflammati on, To increase ROM and To improve nutrient delivery to tissue Text: Thank you for the opportunity to evaluate your patient. For Medicare and Medicare HMO plans, please review the plan of care and approve it. It will need to be FAXED BACK to us at [phone] for Medicare purposes. For Medicare only, by signing this I certify the plan of care. Please let me know if there are questions or concerns regarding this plan of care. Physician Signature: __Date: 02/08/25 1434 CC: Dr. Ivette Grimes MD CLS Signed Normal [facility] Chiropractic Reporton 2024 Chiropractic Report [facility] [address] [place] [address] OFFICE VISIT Date of Service: 02/04/25 MR#: [id number] Acct: [id number] Name: TORI GRAY Rep #: [id number] : 1980 Provider: CONCEPCIÓN Montgomery Age/Sex: 44/F Location[facility] Status: Signed Intake Vital Signs 11/11/24 05:55 Height 5 ft 7 in Intake Visit Reasons: Back pain Chief Complaint: low Back pain/neck pain Is patient in pain?: Yes (Left shoulder) Pain scale (1-10): 5 Allergies Corticosteroids (Glucocorticoids) (steroids) Allergy (Verified 02/04/25 15:03) Hives lidocaine Adverse Reaction (Intermediate, Verified 02/04/25 15:03) Hives Medications ???Medication ???Instructions ???Recorded ???Confirmed ???Type blood sugar diagnostic (Blood #10 ea 04/26/20 02/04/25 History Glucose Test strips) ipratropium bromide 21 mcg (0.03 2 spray intranasal BID allergies 1 02/04/25 History %) nasal spray albuterol sulfate 90 mcg/actuation 2 puff inhalation Q4H PRN 02/04/25 History aerosol inhaler shortness of breath or wheezing fexofenadine 180 mg tablet 180 mg PO DAILY allergies 08/10/22 02/04/25 History (Allergy Relief (fexofenadine)) levonorgestrel 17.5 mcg/24 hr (up 1 device intrauterine ONCE 08/10/22 02/04/25 History to 5 yrs) 19.5mg intrauterine control device tizanidine 4 mg tablet 4 mg PO Q8H PRN Muscle Spasm 08/1002/04/25 History omeprazole 20 mg capsule,delayed 20 mg PO DAILY PRN gerd 08/16/22 0 02/04/25 History release topiramate 100 mg tablet 100 mg PO BID seizures 08/16/22 History fluoxetine 20 mg capsule 20 mg PO DAILY mental health 12/2802/04/25 History gabapentin 300 mg capsule 300 mg PO BID nerve pain 12/28/22 02/04/25 History lisinopril 10 mg tablet 10 mg PO DAILY blood pressure 12/0602/04/25 History ondansetron HCl 4 mg tablet 4 mg PO Q8H PRN nausea 12/28/22 History rimegepant 75 mg disintegrating 75 mg PO DAILY PRN migraine 02/04/25 History tablet (Nurtec ODT) headache semaglutide 0.25 mg or 0.5 mg (2 0.5 mg subcut QWEEK 10/16/2402/04 History mg/3 mL) subcutaneous pen injector (Ozempic) potassium chloride 20 mEq oral 20 meq PO BID 7 days #30 ea 02/04/25 Rx packet [facility] Medical History Abnormal ECG Prolonged Q-T interval on ECG Microalbuminuria LETITIA (obstructive sleep apnea) Back pain 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 Nausea Left shoulder pain Pain of left scapula Left upper extremity numbness Left shoulder strain Obstructive Sleep Apnea-Hypopnea Syndrome Fatty liver Type 2 diabetes mellitus with microalbuminuria Type 2 diabetes mellitus without complication, with long-term current use of insulin History of stent into kidney Anxiety Acute cholecystitis Segmental and somatic dysfunction of cervical region Migraines Acute bronchitis Acute respiratory insufficiency Dyspnea History of obstructive sleep apnea Elevated triglycerides with high cholesterol Calculus of left kidney Nonalcoholic hepatosteatosis Hydroureter, left Hydronephrosis, left Acute kidney injury Pyelonephritis Nephrolithiasis Obesity Hypertension Type 2 diabetes mellitus Segmental and somatic dysfunction of lumbar region Vertigo Left upper quadrant abdominal pain Dysuria Urinary tract infection Segmental and somatic dysfunction of pelvic region Segmental and somatic dysfunction of thoracic region Lumbar facet arthropathy Lumbosacral spondylosis Radiculopathy of lumbosacral region Disc displacement, lumbar Degeneration of intervertebral disc of lumbosacral region Surgical History History of urethral stent ( 2018) Hx laparoscopic cholecystectomy ( 2005) H/O: ( 2005) Family History Father Diabetes Myocardial infarction Pancreatic cancer Mother Alcohol abuse Drug abuse Grandfather Diabetes Grandmother Lung cancer Grandmother Heart disease Triple bypass surgery Social History Smoking Status: Never smoker alcohol intake: never substance use type: does not use caffeine: Yes Type: coffee what type of physical activity do you participate in: walking frequency: daily seatbelt use: always do you feel safe at home: Yes HPI Back pain Chief Complaint: neck/low back pain Visit Number: 1 Details: Tori is a 44 y/o F here today to f/u with ongoing neck and low back pain. She reports tremendous improvement in her back pain since her last adjustment. 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 Normal [facility] Anion gap in Serum or Plasma Ordered By: Ivette Grimes on 01-28-2025 Anion gap [Moles/Vol] 11 mmol/L - [facility] BUN/creatinine ratioOrdered By: Ivette Grimes on 01-28-2025 Urea nitrogen/Creatinine [Mass ratio] 18.5 mg/mg - [facility] Basic Metabolic Profile (BMP )on 01-28-2025 BUN/CRE 18.5 RATIO Normal 10-20 [facility] Comment on above: Performed By: #### L 500.2500, L501.9985 #### [facility] Laboratory [address] [place], [address] Calcium [Mass/Vol] 9.0 mg/dL Normal 7.6-11.0 [facility] Comment on above: Performed By: #### L 500.2500, L501.9985 #### [facility] [address] [place], [address] Chloride [Moles/Vol] 105 mmol/L Normal 98-108 [facility] Comment on above: Performed By: #### L 500.2500, L501.9985 #### [facility] [address] [place], [address] CO2 [Moles/Vol] 21.2 mmol/L Normal 21.0-32.0 [facility] Comment on above: Performed By: #### L 500.2500, L501.9985 #### [facility] [address] [place], [address] Creatinine [Mass/Vol] 0.77 mg/dL Normal 0.70-1.20 [facility] Comment on above: Performed By: #### L 500.2500, L501.9985 #### [facility] [address] [place], [address] GAP 11 Normal 5-15 [facility] Comment on above: Performed By: #### L 500.2500, L501.9985 #### [facility] [address] [place], [address] GFR/1.73 sq M.predicted among non-blacks MDRD (S/P/Bld) [Vol rate/Area] 98 mL/min/{1.73_m2} Normal >60 [facility] Comment on above: Result Comment: mL/m in/1.73m2 CKD-EPI Creatinine Equation (2020) Performed By: #### L 500.2500, L501.9985 #### [facility] [address] [place], [address] Glucose [Mass/Vol] 185 mg/dL High 70-99 [facility] Comment on above: Performed By: #### L 500.2500, L501.9985 #### [facility] [address] [place], [address] Potassium [Moles/Vol] 4.2 mmol/L Normal 3.3-5.1 [facility] Comment on above: Result Comment: Hemo lysis present, Results??could be affected. ?? Performed By: #### L 500.2500, L501.9985 #### [facility] [address] [place], [address] Sodium [Moles/Vol] 137 mmol/L Normal 133-145 [facility] Comment on above: Performed By: #### L 500.2500, L501.9985 #### [facility] [address] [place], [address] Urea nitrogen [Mass/Vol] 14 mg/dL Normal 4-19 [facility] Comment on above: Performed By: #### L 500.2500, L501.9985 #### [facility] [address] [place], [address] [facility] TORI GRAY ([id number]) 1980 Date Time Provider Department 01/28/25 IVETTE GRIMES During your visit today, we recorded the following information about you: Krystle Barnett RN 01/28/2025 4:54 PM Signed Prior Authorization Documentation Prior authorization requested for the following medication: Medication: Ozempic 1 mg (all though PA done in Aug 2024 and approved until Aug 2025 this needs PA due to dose change). Provider: [employer] Name: [employer] Phone number: [phone] Patient ID number: [id number] Pharmacy Name: [facility] Telephone number: [phone] Evon Philippe LPN 01/28/2025 4:56 PM Signed Electronic PA requested. Evon Philippe LPN 01/28/2025 4:58 PM Signed Unable to complete electronically. Will try on covermymeds Evon Philippe LPN 01/29/2025 9:07 AM Signed [employer] RESPONSE. [employer] does not handle this review. Please visit [employer] to start a prior authorization or fax information to [phone]. Please include all supporting chart notes. You may contact [employer] at [phone]. WILL FAX PA REQUEST TO NUMBER PROVIDED. Records faxed to for PA. Mirna Santos MA 02/01/2025 2:43 PM Signed Faxed form completed to rx-benefits with A1C and office note STEFFANIE Duvall Janice, LPN 02/03/2025 11:48 AM Signed Fax rec'd and in scanned documents. No PA is needed for ozempic. This is approved until 08/05/25. Called the pharmacy and this is going through insurance now. On 01/25/25 it prompted the PA. That message to the pharmacy said the pt needed to use 80% of the previous dose. She has met this now. 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 Allergies As of Date: 01/28/2025 Noted Allergy Reaction FARXIGA (DAPAGLIFLOZIN) 08/05/2024 8 - GI Upset LIDOCAINE 12/24/2019 4 - Hives METFORMIN 08/05/2024 8 - GI Upset STEROIDS (BETAMETHASONE DIPROPION* 2 4 - Hives Date Reviewed: 01/22/2025 Reviewed by: Nirmala Storey LPN - Fully Assessed Reason for Visit: PA new dose of ozempic [Other] Prescriptions as of 02/03/2025 - tiZANidine (ZANAFLEX) 4 mg tablet Take 1 tablet by mouth every 8 hours as needed (muscle spasms). - FLUoxetine (PROZAC) 20 mg capsule Take 1 capsule by mouth once daily. - gabapentin (NEURONTIN) 300 mg capsule Take 1 capsule by mouth two times a day for 180 days. - semaglutide (OZEMPIC) 1 mg/dose (4 mg/3 mL) pen Inject 1 mg subcutaneously one time a week. - topiramate (TOPAMAX) 100 mg tablet Take 1 tablet by mouth two times a day. - potassium chloride (KLOR-CON) 20 mEq packet Take 20 mEq by mouth as needed. - albuterol HFA (VENTOLIN HFA) 90 mcg/actuation inhaler Inhale 2 Puffs as instructed every 4 hours as needed for wheezing/shortness of breath. - ondansetron (ZOFRAN) 4 mg tablet Take 1 tablet by mouth every 8 hours as needed for nausea/vomiting. - lisinopril (ZESTRIL) 10 mg tablet Take 1 tablet by mouth once daily. - rimegepant (NURTEC ODT) 75 mg disintegrating tablet Take 1 tablet by mouth once daily as needed. - naratriptan (AMERGE) 2.5 mg tablet Take 1 tablet (2.5 mg) by mouth as directed. at the onset of headache; if headache returns or does not fully resolve, the dose may be repeated after 4 hours; do not exceed five(5) mg in 24 hours. NO more than 10 doses a month. - fexofenadine (ALMA ALLERGY) 180 mg tablet Take 1 tablet by mouth once daily. - Ipratropium [place] (ATROVENT) 21 mcg (0.03 %) nasal spray Use 2 Sprays in the nose every 12 hours. - omeprazole (PRILOSEC) 20 mg capsule Take 1 capsule by mouth daily before breakfast. 1/2 hr before meal. - MAGNESIUM ORAL Take by mouth. - meclizine (ANTIVERT) 25 mg tab Take 25 mg by mouth once daily. Takes two tabs in am - BIPAP - levonorgestrel (KYLEENA) 17.5 mcg/24 hrs (5 yrs) 19.5 mg IUD 1 Each by INTRAUTERINE route as directed. - Herrick-3 Fatty Acids (FISH OIL) 500 mg cap Take 1 capsule by mouth once daily. - blood sugar diagnostic (BLOOD GLUCOSE TEST) test strip Test blood sugar(s) 1 times daily. Dx: Type 2 DM - Controlled E11.9 Insulin: Yes - Lancets lancets Test blood sugar(s) 1 times daily. Dx: Type 2 DM - Controlled E11.9 Insulin: No - Nhwlqeij-Ne-Gqz-Fe- FA tab Take 1 tablet by mouth once daily. Meds Comments as of 03/01/2019: Percocet March 01, 2019 Stephanie Surehs RN Problem List As Of Date 01/28/2025 Noted Resolved SUPERVIS NORMAL 1ST PREG [Z34.00] 11/09/2005 07/02/2006 TRANS HYPERTEN-ANTEPART [O13.9] 06/19/2006 07/02/2006 KERATOSIS PILARIS////SKIN ANOMALY NEC [Q82.8] 03/26/2007 01/23/2010 Other Acne [L70.8] 03/26/2007 FOLLICULITIS///HAIR DISEASES NEC [L67.8, L73.8] 03/26/2007 01/23/2010 Lichenification and Lichen Simplex Chronicus [L*03/26/2007 01/23/2010 DERMATOFIBROMA///BE N (more content not included)... Normal [facility] ---- TORI GRAY ([id number]) 1980 F Date Time Provider Department 01/28/[address] [facility] During your visit today, we recorded the following information about you: Dennise Robles MA 01/28/2025 8:45 AM Signed Scan on 01/28/2025 8:29 AM by Provider, JONNY Powell: BMP Scan on 01/28/2025 8:17 AM by Provider, JONNY Powell: HGB A1C Allergies As of Date: 01/28/2025 Noted Allergy Reaction FARXIGA (DAPAGLIFLOZIN) 08/05/2024 8 - GI Upset LIDOCAINE 12/24/2019 4 - Hives METFORMIN 08/05/2024 8 - GI Upset STEROIDS (BETAMETHASONE DIPROPION* 2 4 - Hives Date Reviewed: 01/22/2025 Reviewed by: Nirmala Storey LPN - Fully Assessed Reason for Visit: Results [95] Prescriptions as of 02/08/2025 - tiZANidine (ZANAFLEX) 4 mg tablet Take 1 tablet by mouth every 8 hours as needed (muscle spasms). - FLUoxetine (PROZAC) 20 mg capsule Take 1 capsule by mouth once daily. - gabapentin (NEURONTIN) 300 mg capsule Take 1 capsule by mouth two times a day for 180 days. - semaglutide (OZEMPIC) 1 mg/dose (4 mg/3 mL) pen Inject 1 mg subcutaneously one time a week. - topiramate (TOPAMAX) 100 mg tablet Take 1 tablet by mouth two times a day. - potassium chloride (KLOR-CON) 20 mEq packet Take 20 mEq by mouth as needed. - albuterol HFA (VENTOLIN HFA) 90 mcg/actuation inhaler Inhale 2 Puffs as instructed every 4 hours as needed for wheezing/shortness of breath. - ondansetron (ZOFRAN) 4 mg tablet Take 1 tablet by mouth every 8 hours as needed for nausea/vomiting. - lisinopril (ZESTRIL) 10 mg tablet Take 1 tablet by mouth once daily. - rimegepant (NURTEC ODT) 75 mg disintegrating tablet Take 1 tablet by mouth once daily as needed. - naratriptan (AMERGE) 2.5 mg tablet Take 1 tablet (2.5 mg) by mouth as directed. at the onset of headache; if headache returns or does not fully resolve, the dose may be repeated after 4 hours; do not exceed five(5) mg in 24 hours. NO more than 10 doses a month. - fexofenadine (ALMA ALLERGY) 180 mg tablet Take 1 tablet by mouth once daily. - Ipratropium [place] (ATROVENT) 21 mcg (0.03 %) nasal spray Use 2 Sprays in the nose every 12 hours. - omeprazole (PRILOSEC) 20 mg capsule Take 1 capsule by mouth daily before breakfast. 1/2 hr before meal. - MAGNESIUM ORAL Take by mouth. - meclizine (ANTIVERT) 25 mg tab Take 25 mg by mouth once daily. Takes two tabs in am - BIPAP - levonorgestrel (KYLEENA) 17.5 mcg/24 hrs (5 yrs) 19.5 mg IUD 1 Each by INTRAUTERINE route as directed. - Herrick-3 Fatty Acids (FISH OIL) 500 mg cap Take 1 capsule by mouth once daily. - blood sugar diagnostic (BLOOD GLUCOSE TEST) test strip Test blood sugar(s) 1 times daily. Dx: Type 2 DM - Controlled E11.9 Insulin: Yes - Lancets lancets Test blood sugar(s) 1 times daily. Dx: Type 2 DM - Controlled E11.9 Insulin: No - Oezujtox-Do-Tan-Fe- FA tab Take 1 tablet by mouth once daily. Meds Comments as of 03/01/2019: Percocet March 01, 2019 Stephanie Suresh RN Problem List As Of Date 01/28/2025 Noted Resolved SUPERVIS NORMAL 1ST PREG [Z34.00] 11/09/2005 07/02/2006 TRANS HYPERTEN-ANTEPART [O13.9] 06/19/2006 07/02/2006 KERATOSIS PILARIS////SKIN ANOMALY NEC [Q82.8] 03/26/2007 01/23/2010 Other Acne [L70.8] 03/26/2007 FOLLICULITIS///HAIR DISEASES NEC [L67.8, L73.8] 03/26/2007 01/23/2010 Lichenification and Lichen Simplex Chronicus [L*03/26/2007 01/23/2010 DERMATOFIBROMA///BE NIGN KAILEY SKIN ARM [D23.60] 03/26/2007 01/23/2010 Contact Dermatitis and Other Eczema, due to Uns*03/26/2007 01/23/2010 SACROILIITIS [M46.1] 05/06/2009 01/23/2010 Routine general medical examination at a health*01/23/2010 12/06/2012 Class: Chronic Routine gynecological examination [Z01.419] 01/23/2010 02/22/2014 Class: Chronic Morbid Obesity [E66.01] 01/23/2010 Lumbar Disc Disorder [M51.9] 02/16/2010 Routine general medical examination at a health*12/06/2012 02/22/2014 Anxiety [F41.9] 06/07/2014 Type 2 diabetes mellitus with microalbuminuria,*0 07/04/2018 Fatty liver [K76.0] 07/21/2018 08/05/2024 LETITIA (obstructive sleep apnea) [G47.33] 07/21/2018 Microalbuminuria [R80.9] 09/30/2018 09/04/2022 Obesity, Class III, BMI >= 40 [E66.01] 11/26/2019 09/04/2022 Prolonged Q-T interval on ECG [R94.31] 03/31/2020 Calculus of kidney [N20.0] 09/04/2022 Chest pain [R07.9] 09/04/2022 09/04/2022 Contusion of knee [S80.00XA] 09/04/2022 09/04/2022 Essential (primary) hypertension [I10] 08/16/2022 Fall [W19.XXXA] 09/04/2022 09/04/2022 Headache [R51] 09/04/2022 09/04/2022 Herniation of lumbar intervertebral disc with r*06/10/2017 History of type 2 diabetes mellitus [Z86.39] 09/04/2022 09/04/2022 Low back pain, unspecified [M54.50] 04/17/2022 09/04/2022 Migraine headache [G43.909] 09/04/2022 Muscle pain [M79.10] 09/04/2022 09/04/2022 Nausea, vomiting, and diarrhea [R11.2, R19.7] 11/22/202109/04 (more content not included)... Normal [facility] Carbon dioxide, total [Moles /volume] in Central venous bloodOrdered By: Ivette Grimes on 01-28-2025 CO2 [Moles/Vol] 21.2 mmol/L 21.0-32.0 [facility] Chloride assayOrdered By: Regina Grimes on 01-28-2025 Chloride [Moles/Vol] 105 mmol/L 98-108 [facility] GFR/1.73 sq M.predicted jamari g non-blacks MDRD (S/P/Bld) [Vol rate/Area]Ordered By: Ivette Grimes on 01-28-2025 Estimated GFR (MDRD) Non-Af Amer 98 >60 [facility] Comment on above: mL/min/1.73m2 CKD-EP I Creatinine Equation (2020) Glomerular filtration rate ( GFR) estimation/1.73 sq m using serum, plasma, or whole bOrdered By: Ivette Grimes on 01-28-2025 GFR/1.73 sq M.predicted among non-blacks MDRD (S/P/Bld) [Vol rate/Area] 98 mL/min/{1.73_m2} >60 [facility] Comment on above: mL/min/1.73m2 CKD-EP I Creatinine Equation (2020) HBA1C (OUTSIDE)on 01-28-2025 [facility] Hemoglobin A1c percentageon 01-28-2025 HbA1c (Bld) [Mass fraction] 6.6 % Normal <=5.6 [facility] Comment on above: Performed By: #### L 500.2500, L501.9985 #### [facility] [address] [place], [address] Potassium (Unsp spec) [Mass/ Vol]Ordered By: Ivette Grimes on 01-28-2025 Potassium [Moles/Vol] 4.2 mmol/L 3.3-5.1 [facility] Comment on above: Hemolysis present, R esults could be affected. Potassium measurement (mass/ volume)Ordered By: Ivette Grimes on 01-28-2025 Potassium (Unsp spec) [Mass/Vol] 4.2 mmol/L 3.3-5.1 [facility] Comment on above: Hemolysis present, R esults could be affected. Serum creatinine measurement (mass/volume)Ordered By: Ivette Grimes on 01-28-2025 Creatinine [Mass/Vol] 0.77 mg/dL 0.70-1.20 [facility] Serum glucose measurement (m ass/volume)Ordered By: Ivette Grimes on 01-28-2025 Glucose [Mass/Vol] 185 mg/dL High 70-99 [facility] Serum or plasma calcium sharron urement (mass/volume)Ordered By: Ivette Grimes on 01-28-2025 Calcium [Mass/Vol] 9.0 mg/dL 7.6-11.0 [facility] Serum or plasma urea nitroge n measurement (mass/volume)Ordered By: Ivette Grimes on 01-28-2025 Urea nitrogen [Mass/Vol] 14 mg/dL 4-19 [facility] Sodium levelOrdered By: Reji harem Sydney on 01-28-2025 Sodium [Moles/Vol] 137 mmol/L 133-145 [facility] CNOVon 01-22-2025 CNOV Office Visit (FAMWS) ---- TORI GRAY ([id number]) 1980 F Date Time Provider Department 01/22/25 3:[address] [facility] During your visit today, we recorded the following information about you: Pulse Blood pressure Weight 77/minute 122/72 127.9 kg Ivette Grimes MD 01/22/2025 4:08 PM Signed Patient presents with: Numbness: Left arm-Feels coming from her shoulder. Has a spot that if she touches can make her arm go numb. Diabetes: Following up updated ozempic dose HPI: Patient presents today for office visit for follow up. Fasting glucose is still up. Due for follow up A1c. No symptoms. No chest pain or shortness of breath. Migraines are stable. Has not needed botox in a while. Has a hx of shoulder issues. Has done physical therapy in the past for same. Arm goes numb. Has seen Dr Sanchez in the past for it in the past. She feels when she had dry needling in the past and therapy. It helps. No trauma. Moods have been good. No heartburn. MEDICATIONS: Current Outpatient Medications Medication Sig semaglutide (OZEMPIC) 0.25 mg or 0.5 mg (2 mg/3 mL) pen Inject 0.5 mg subcutaneously one time a week. topiramate (TOPAMAX) 100 mg tablet Take 1 tablet by mouth two times a day. potassium chloride (KLOR-CON) 20 mEq packet Take 20 mEq by mouth as needed. albuterol HFA (VENTOLIN HFA) 90 mcg/actuation inhaler Inhale 2 Puffs as instructed every 4 hours as needed for wheezing/shortness of breath. tiZANidine (ZANAFLEX) 4 mg tablet Take 1 tablet by mouth every 8 hours as needed (muscle spasms). FLUoxetine (PROZAC) 20 mg capsule Take 1 capsule by mouth once daily. ondansetron (ZOFRAN) 4 mg tablet Take 1 tablet by mouth every 8 hours as needed for nausea/vomiting. lisinopril (ZESTRIL) 10 mg tablet Take 1 tablet by mouth once daily. rimegepant (NURTEC ODT) 75 mg disintegrating tablet Take 1 tablet by mouth once daily as needed. gabapentin (NEURONTIN) 300 mg capsule Take 1 capsule by mouth two times a day for 180 days. naratriptan (AMERGE) 2.5 mg tablet Take 1 tablet (2.5 mg) by mouth as directed. at the onset of headache; if headache returns or does not fully resolve, the dose may be repeated after 4 hours; do not exceed five(5) mg in 24 hours. NO more than 10 doses a month. fexofenadine (ALMA ALLERGY) 180 mg tablet Take 1 tablet by mouth once daily. Ipratropium [place] (ATROVENT) 21 mcg (0.03 %) nasal spray Use 2 Sprays in the nose every 12 hours. omeprazole (PRILOSEC) 20 mg capsule Take 1 capsule by mouth daily before breakfast. 1/2 hr before meal. MAGNESIUM ORAL Take by mouth. meclizine (ANTIVERT) 25 mg tab Take 25 mg by mouth once daily. Takes two tabs in am BIPAP levonorgestrel (KYLEENA) 17.5 mcg/24 hrs (5 yrs) 19.5 mg IUD 1 Each by INTRAUTERINE route as directed. Herrick-3 Fatty Acids (FISH OIL) 500 mg cap Take 1 capsule by mouth once daily. blood sugar diagnostic (BLOOD GLUCOSE TEST) test strip Test blood sugar(s) 1 times daily. Dx: Type 2 DM - Controlled E11.9 Insulin: Yes Lancets lancets Test blood sugar(s) 1 times daily. Dx: Type 2 DM - Controlled E11.9 Insulin: No Cygwefwb-To-Khf-Fe- FA tab Take 1 tablet by mouth once daily. No current facility-administer ed medications for this visit. ALLERGIES: ALLERGIES Allergen Reactions Farxiga [Dapagliflo* GI Upset Lidocaine Hives Metformin GI Upset Steroids [Betametha* Hives PAST MEDICAL HISTORY Diagnosis Date Acute cholecystitis Cholecystitis Anxiety 06/07/2014 Chronic back pain Kidney stones LETITIA treated with BiPAP Type 2 diabetes mellitus (HCC) PAST SURGICAL HISTORY Procedure Laterality Date DELIVERY ONLY 2005 , low cervical INSERT INTRAUTERINE DEVICE 10/19/08 mirena LAPAROSCOPY SURG CHOLECYSTECTOMY 2005 Cholecystectomy, lap (Rowena Monet) PAST SURGICAL HISTORY OF 2019 stent into kidney REMOVE IUD 07/13/2010 FAMILY HISTORY Problem Relation Age of Onset Alcohol/Drug Mother Heart Father [place] Cancer Father PANCREATIC CANCER Diabetes Father Coronary Artery Disease Father Anxiety disorder Sister Depression Sister Depression Brother Cancer Maternal Grandmother LUNG CANCER Diabetes Maternal Grandfather Heart Paternal Grandmother TRIPLE BYPASS SURGERY Social History Tobacco Use Smoking status: Never Smokeless tobacco: Never Vaping Use Vaping status: Never Used Substance Use Topics Alcohol use: No Drug use: No Reviewed current medications, allergies, past medical history, surgical history, family history and social history today. REVIEW OF SYSTEMS All other reviewed and negative other than HPI. HEALTH MAINTENANCE: Reviewed health maintenance issues today and recommended the following in detail. Depression Screening Never done Mammogram Screening -ordered. Cervical Cancer Screening has to reschedule. BP Controlled ( (more content not included)... Normal [facility] 12-21-2024 [facility] Telephone ([facility]) ---- TORI GRAY ([id number]) 1980 F Date Time Provider Department 12/21/24 JENNI MARTÍNEZ During your visit today, we recorded the following information about you: Jenni Martínez APRN.ELECTROTYPER HELPER 12/21/2024 2:36 PM Signed Can you please call the patient and let her know that I apologize for not getting back to her sooner. I had to go on and print off her test results from the hospital. Labs were relatively stable. Potassium was normal. Chest x-ray was normal as well. Can you please ask if her symptoms improved with the zpack? Jenni Martínez APRN.Jumana Montes LPN 12/21/2024 3:20 PM Signed Patient notified of results, verbalizes understanding of instructions. Pt stated she is about 80% better with the z-pack and cough drops. Will call is get worse again. Jumana Harrell LPN Allergies As of Date: 12/21/2024 Noted Allergy Reaction FARXIGA (DAPAGLIFLOZIN) 08/05/2024 8 - GI Upset LIDOCAINE 12/24/2019 4 - Hives METFORMIN 08/05/2024 8 - GI Upset STEROIDS (BETAMETHASONE DIPROPION* 2 4 - Hives Date Reviewed: 12/11/2024 Reviewed by: Jumana Harrell LPN - Fully Assessed Reason for Visit: Results [95] Cmt: Labs/Chest xray Prescriptions as of 12/24/2024 - potassium chloride (KLOR-CON) 20 mEq packet Take 20 mEq by mouth as needed. - albuterol HFA (VENTOLIN HFA) 90 mcg/actuation inhaler Inhale 2 Puffs as instructed every 4 hours as needed for wheezing/shortness of breath. - tiZANidine (ZANAFLEX) 4 mg tablet Take 1 tablet by mouth every 8 hours as needed (muscle spasms). - FLUoxetine (PROZAC) 20 mg capsule Take 1 capsule by mouth once daily. - ondansetron (ZOFRAN) 4 mg tablet Take 1 tablet by mouth every 8 hours as needed for nausea/vomiting. - semaglutide (OZEMPIC) 0.25 mg or 0.5 mg (2 mg/3 mL) pen Inject 0.5 mg subcutaneously one time a week. - lisinopril (ZESTRIL) 10 mg tablet Take 1 tablet by mouth once daily. - rimegepant (NURTEC ODT) 75 mg disintegrating tablet Take 1 tablet by mouth once daily as needed. - topiramate (TOPAMAX) 100 mg tablet Take 1 tablet by mouth two times a day. - gabapentin (NEURONTIN) 300 mg capsule Take 1 capsule by mouth two times a day for 180 days. - naratriptan (AMERGE) 2.5 mg tablet Take 1 tablet (2.5 mg) by mouth as directed. at the onset of headache; if headache returns or does not fully resolve, the dose may be repeated after 4 hours; do not exceed five(5) mg in 24 hours. NO more than 10 doses a month. - albuterol HFA (VENTOLIN HFA) 90 mcg/actuation inhaler Inhale 2 Puffs as instructed every 4 hours as needed for wheezing/shortness of breath. - fexofenadine (ALMA ALLERGY) 180 mg tablet Take 1 tablet by mouth once daily. - Ipratropium [place] (ATROVENT) 21 mcg (0.03 %) nasal spray Use 2 Sprays in the nose every 12 hours. - omeprazole (PRILOSEC) 20 mg capsule Take 1 capsule by mouth daily before breakfast. 1/2 hr before meal. - MAGNESIUM ORAL Take by mouth. - meclizine (ANTIVERT) 25 mg tab Take 25 mg by mouth once daily. Takes two tabs in am - BIPAP - levonorgestrel (KYLEENA) 17.5 mcg/24 hrs (5 yrs) 19.5 mg IUD 1 Each by INTRAUTERINE route as directed. - Herrick-3 Fatty Acids (FISH OIL) 500 mg cap Take 1 capsule by mouth once daily. - blood sugar diagnostic (BLOOD GLUCOSE TEST) test strip Test blood sugar(s) 1 times daily. Dx: Type 2 DM - Controlled E11.9 Insulin: Yes - Lancets lancets Test blood sugar(s) 1 times daily. Dx: Type 2 DM - Controlled E11.9 Insulin: No - Xgjuxiqf-Lu-Rfa-Fe- FA tab Take 1 tablet by mouth once daily. Meds Comments as of 03/01/2019: Percocet March 01, 2019 Stephanie Suresh RN Problem List As Of Date 12/21/2024 Noted Resolved SUPERVIS NORMAL 1ST PREG [Z34.00] 11/09/2005 07/02/2006 TRANS HYPERTEN-ANTEPART [O13.9] 06/19/2006 07/02/2006 KERATOSIS PILARIS////SKIN ANOMALY NEC [Q82.8] 03/26/2007 01/23/2010 Other Acne [L70.8] 03/26/2007 FOLLICULITIS///HAIR DISEASES NEC [L67.8, L73.8] 03/26/2007 01/23/2010 Lichenification and Lichen Simplex Chronicus [L*03/26/2007 01/23/2010 DERMATOFIBROMA///BE NIGN KAILEY SKIN ARM [D23.60] 03/26/2007 01/23/2010 Contact Dermatitis and Other Eczema, due to Uns*03/26/2007 01/23/2010 SACROILIITIS [M46.1] 05/06/2009 01/23/2010 Routine general medical examination at a [facility]*01/23/2010 12/06/2012 Class: Chronic Routine gynecological examination [Z01.419] 01/23/2010 02/22/2014 Class: Chronic Morbid Obesity [E66.01] 01/23/2010 Lumbar Disc Disorder [M51.9] 02/16/2010 Routine general medical examination at a [facility]*12/06/2012 02/22/2014 Anxiety [F41.9] 06/07/2014 Type 2 diabetes mellitus with microalbuminuria,*0 07/04/2018 Fatty liver [K76.0] 07/21/2018 08/05/2024 LETITIA (obstructive sleep apnea) [G47.33] 07/21/2018 Microalbuminuria [R80.9] 09/30/2018 09/04/2022 Obesity, Class III, BMI >= 40 [E66.01] 11/26/2019 09/04/2022 (more content not included)... Normal [facility] Albumin to globulin ratioOrd ered By: Jenni Martínez on 12-11-2024 Albumin/Globulin [Mass ratio] 0.8 {ratio} Low 0.9-2.4 [facility] Bilirubin, totalOrdered By: Jenni Martínez on 12-11-2024 Bilirubin [Mass/Vol] 0.80 mg/dL 0.20-1.00 [facility] Comment on above: For patients on eltr ombopag therapy, use of Dimension [place] TBIL is not recommended. Blood urea nitrogen (BUN)/cr eatinine ratioOrdered By: Jenni Martínez on 12-11-2024 Urea nitrogen/Creatinine [Mass ratio] 11.5 mg/mg 10-20 [facility] CNOVon 12-11-2024 CNOV Office Visit (FAMPWS) ---- GRAYTORI ELIAS ([id number]) 1980 F Date Time Provider Department 12/11/24 11:00 AM JENNI MARTÍNEZ During your visit today, we recorded the following information about you: Temperature Pulse Respiration Blood pressure 97.8 degrees 72/minute 16/minute 138/74 Weight 125.7 kg Jenni Martínez APRN.ELECTROTYPER HELPER 12/11/2024 12:26 PM Signed This is a 44 year old female who presents today with: Patient presents with: Acute Visit: cough, congestion x 4 weeks HISTORY OF PRESENT ILLNESS: Tori Gray is a 44 year old female. Patient presents with: Acute Visit: cough, congestion x [address] Grimes here in the office for sinus congestion and cough. Symptoms started 1 month ago. She does have green mucus when blowing her nose and sometimes is coughing it up. Went to the ER on 12/01 due to vision being blurry, felt very fatigued, found out her potassium was 2.6. Was given potassium to drink and told to drink body armor drinks. Had Tessalon perrls from last bronchitis and they were not effective. Is having problems stopping her cough once it starts. Reports wheezing. Taking VaboRub, Dayquil, nyquil, mucinex, has been using CPAP. Denies fever or chills, nausea/vomiting, diarrhea/consitpati on. PAST MEDICAL HISTORY: PAST MEDICAL HISTORY Diagnosis Date Acute cholecystitis Cholecystitis Anxiety 06/07/2014 Chronic back pain Kidney stones LETITIA treated with BiPAP Type 2 diabetes mellitus (HCC) PAST SURGICAL HISTORY Procedure Laterality Date DELIVERY ONLY 2006 , low cervical INSERT INTRAUTERINE DEVICE 10/19/08 mirena LAPAROSCOPY SURG CHOLECYSTECTOMY 2006 Cholecystectomy, lap (Rowena Monet) PAST SURGICAL HISTORY OF 2019 stent into kidney REMOVE IUD 07/13/2010 ALLERGIES Farxiga [Dapagliflozin], Lidocaine, Metformin, and Steroids [Betamethasone Dipropionate] MEDICATIONS Current Outpatient Medications Medication Sig albuterol HFA (VENTOLIN HFA) 90 mcg/actuation inhaler Inhale 2 Puffs as instructed every 4 hours as needed for wheezing/shortness of breath. tiZANidine (ZANAFLEX) 4 mg tablet Take 1 tablet by mouth every 8 hours as needed (muscle spasms). FLUoxetine (PROZAC) 20 mg capsule Take 1 capsule by mouth once daily. ondansetron (ZOFRAN) 4 mg tablet Take 1 tablet by mouth every 8 hours as needed for nausea/vomiting. semaglutide (OZEMPIC) 0.25 mg or 0.5 mg (2 mg/3 mL) pen Inject 0.5 mg subcutaneously one time a week. lisinopril (ZESTRIL) 10 mg tablet Take 1 tablet by mouth once daily. rimegepant (NURTEC ODT) 75 mg disintegrating tablet Take 1 tablet by mouth once daily as needed. topiramate (TOPAMAX) 100 mg tablet Take 1 tablet by mouth two times a day. gabapentin (NEURONTIN) 300 mg capsule Take 1 capsule by mouth two times a day for 180 days. naratriptan (AMERGE) 2.5 mg tablet Take 1 tablet (2.5 mg) by mouth as directed. at the onset of headache; if headache returns or does not fully resolve, the dose may be repeated after 4 hours; do not exceed five(5) mg in 24 hours. NO more than 10 doses a month. albuterol HFA (VENTOLIN HFA) 90 mcg/actuation inhaler Inhale 2 Puffs as instructed every 4 hours as needed for wheezing/shortness of breath. fexofenadine (ALMA ALLERGY) 180 mg tablet Take 1 tablet by mouth once daily. Ipratropium [place] (ATROVENT) 21 mcg (0.03 %) nasal spray Use 2 Sprays in the nose every 12 hours. omeprazole (PRILOSEC) 20 mg capsule Take 1 capsule by mouth daily before breakfast. 1/2 hr before meal. MAGNESIUM ORAL Take by mouth. meclizine (ANTIVERT) 25 mg tab Take 25 mg by mouth once daily. Takes two tabs in am BIPAP levonorgestrel (KYLEENA) 17.5 mcg/24 hrs (5 yrs) 19.5 mg IUD 1 Each by INTRAUTERINE route as directed. Herrick-3 Fatty Acids (FISH OIL) 500 mg cap Take 1 capsule by mouth once daily. blood sugar diagnostic (BLOOD GLUCOSE TEST) test strip Test blood sugar(s) 1 times daily. Dx: Type 2 DM - Controlled E11.9 Insulin: Yes Lancets lancets Test blood sugar(s) 1 times daily. Dx: Type 2 DM - Controlled E11.9 Insulin: No Slgojaed-Sm-Qfs-Fe- FA tab Take 1 tablet by mouth once daily. No current facility-administer ed medications for this visit. FAMILY HISTORY Problem Relation Age of Onset Alcohol/Drug Mother Heart Father [place] Cancer Father PANCREATIC CANCER Diabetes Father Coronary Artery Disease Father Anxiety disorder Sister Depression Sister Depression Brother Cancer Maternal Grandmother LUNG CANCER Diabetes Maternal Grandfather Heart Paternal Grandmother TRIPLE BYPASS SURGERY Social History Tobacco Use Smoking status: Never Smokeless tobacco: Never Vaping Use Vaping status: Never Used Substance Use Topics Alcohol use: No Drug use: No REVIEW OF SYSTEMS GENERAL: No weight loss, malaise or fevers/chills HEENT: + Sinus Congestion NECK: Negat (more content not included)... [facility] TORI GRAY ([id number]) 1980 F Date Time Provider Department 12/11/24 [facility] During your visit today, we recorded the following information about you: Brittney Meredith RN 12/11/2024 8:23 AM Signed Patient calling to make appt for evaluation of respiratory sx's that began approx 4 weeks ago. Pt states she feels she may have bronchitis or pneumonia. States she was at [facility] ER last month due to dizziness, vision changes and feeling unwell. States she was told she had critically low potassium and was dehydrated. Given IV hydration at ER and potassium medication to take for 7 days which she completed. Pt did not follow up with PCP, as was advised by ER. Since then she has been experiencing respiratory sx's, including cough, nasal congestion, sinus pressure, intermittent wheezing, sore throat. Uses inhaler with effect. Denies current fever, SOB, chest pain, dizziness, vision changes, N/V/D, body aches, or weakness. Has tried OTC medication such as Dayquil and Nyquil-not very effective. Appt made with Aparna Martínez CNP for evaluation of respiratory sx's. Brittney Meredith RN Allergies As of Date: 12/11/2024 Noted Allergy Reaction FARXIGA (DAPAGLIFLOZIN) 08/05/2024 8 - GI Upset LIDOCAINE 12/24/2019 4 - Hives METFORMIN 08/05/2024 8 - GI Upset STEROIDS (BETAMETHASONE DIPROPION* 2 4 - Hives Date Reviewed: 09/03/2024 Reviewed by: Fatuma Beckford PA-C - Fully Assessed Prescriptions as of 12/11/2024 - albuterol HFA (VENTOLIN HFA) 90 mcg/actuation inhaler Inhale 2 Puffs as instructed every 4 hours as needed for wheezing/shortness of breath. - tiZANidine (ZANAFLEX) 4 mg tablet Take 1 tablet by mouth every 8 hours as needed (muscle spasms). - FLUoxetine (PROZAC) 20 mg capsule Take 1 capsule by mouth once daily. - ondansetron (ZOFRAN) 4 mg tablet Take 1 tablet by mouth every 8 hours as needed for nausea/vomiting. - semaglutide (OZEMPIC) 0.25 mg or 0.5 mg (2 mg/3 mL) pen Inject 0.5 mg subcutaneously one time a week. - lisinopril (ZESTRIL) 10 mg tablet Take 1 tablet by mouth once daily. - rimegepant (NURTEC ODT) 75 mg disintegrating tablet Take 1 tablet by mouth once daily as needed. - topiramate (TOPAMAX) 100 mg tablet Take 1 tablet by mouth two times a day. - gabapentin (NEURONTIN) 300 mg capsule Take 1 capsule by mouth two times a day for 180 days. - naratriptan (AMERGE) 2.5 mg tablet Take 1 tablet (2.5 mg) by mouth as directed. at the onset of headache; if headache returns or does not fully resolve, the dose may be repeated after 4 hours; do not exceed five(5) mg in 24 hours. NO more than 10 doses a month. - albuterol HFA (VENTOLIN HFA) 90 mcg/actuation inhaler Inhale 2 Puffs as instructed every 4 hours as needed for wheezing/shortness of breath. - fexofenadine (ALMA ALLERGY) 180 mg tablet Take 1 tablet by mouth once daily. - Ipratropium [place] (ATROVENT) 21 mcg (0.03 %) nasal spray Use 2 Sprays in the nose every 12 hours. - omeprazole (PRILOSEC) 20 mg capsule Take 1 capsule by mouth daily before breakfast. 1/2 hr before meal. - MAGNESIUM ORAL Take by mouth. - meclizine (ANTIVERT) 25 mg tab Take 25 mg by mouth once daily. Takes two tabs in am - BIPAP - levonorgestrel (KYLEENA) 17.5 mcg/24 hrs (5 yrs) 19.5 mg IUD 1 Each by INTRAUTERINE route as directed. - Herrick-3 Fatty Acids (FISH OIL) 500 mg cap Take 1 capsule by mouth once daily. - blood sugar diagnostic (BLOOD GLUCOSE TEST) test strip Test blood sugar(s) 1 times daily. Dx: Type 2 DM - Controlled E11.9 Insulin: Yes - Lancets lancets Test blood sugar(s) 1 times daily. Dx: Type 2 DM - Controlled E11.9 Insulin: No - Asxqxdut-Cl-Flq-Fe- FA tab Take 1 tablet by mouth once daily. 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*03/26/2007 01/23/2010 DERMATOFIBROMA///BE NIGN KAILEY SKIN ARM [D23.60] 03/26/2007 01/23/2010 Contact Dermatitis and Other Eczema, due to Uns*03/26/2007 01/23/2010 SACROILIITIS [M46.1] 05/06/2009 01/23/2010 Routine general medical examination at [facility]*01/23/2010 12/06/2012 Class: Chronic Routine gynecological examination [Z01.419] 01/23/2010 02/22/2014 Class: Chronic Morbid Obesity [E66.01] 01/23/2010 Lumbar Disc Disorder [M51.9] 02/16/2010 Routine general medical examination at [facility]*12/06/2012 02/22/2014 Anxiety [F41.9] 06/07/2014 Type 2 diabetes mellitus with microalbuminuria,*0 07/04/2018 Fatty liver [K76.0] 07/21/2018 08/05/20 (more content not included)... [facility] ---- TORI GRAY ([id number]) 1980 F Date Time Provider Department 12/11/24 JENNI MARTÍNEZ [facility] During your visit today, we recorded the following information about you: Jenni Martínez APRN.ELECTROTYPER HELPER 12/11/2024 2:18 PM Signed Can you please call the patient and let her know that I am still waiting for x-ray results from [facility]. I went ahead and sent in a prescription for azithromycin until results are reviewed. I want her to continue supportive care at home. I will be in contact with her once I receive results. Please let me know if she has any questions. Thank you The following approved medication requests have been transmitted electronically. Requested Prescriptions Signed Prescriptions Disp Refills azithromycin (ZITHROMAX Z-TEMO) 250 mg tablet 6 tablet 0 Sig: Take 2 tablets day one, then, 1 tablet daily until gone. Authorizing Provider: JENNI MARTÍNEZ APRN.Jumana Montes LPN 12/11/2024 2:24 PM Signed Patient notified of results, verbalizes understanding of instructions. Jumana Harrell LPN Allergies As of Date: 12/11/2024 Noted Allergy Reaction FARXIGA (DAPAGLIFLOZIN) 08/05/2024 8 - GI Upset LIDOCAINE 12/24/2019 4 - Hives METFORMIN 08/05/2024 8 - GI Upset STEROIDS (BETAMETHASONE DIPROPION* 2 4 - Hives Date Reviewed: 12/11/2024 Reviewed by: Jumana Harrell LPN - Fully Assessed Reason for Visit: Orders [681] Primary Visit Diagnosis:Sinobronc hitis [J32.9, J40] Order(s):azithromyc in (ZITHROMAX Z-TEMO) 250 mg tabletTake 2 tablets day one, then, 1 tablet daily until gone.Disp: 6 tabletRfl: 0 Prescriptions as of 12/11/2024 - potassium chloride (KLOR-CON) 20 mEq packet Take 20 mEq by mouth as needed. - codeine-guaiFENesin (ROBITUSSIN AC) 10-100 mg/5 mL syrup Take 10 mL by mouth three times a day as needed for cough for up to 7 days. - azithromycin (ZITHROMAX Z-TEMO) 250 mg tablet Take 2 tablets day one, then, 1 tablet daily until gone. - albuterol HFA (VENTOLIN HFA) 90 mcg/actuation inhaler Inhale 2 Puffs as instructed every 4 hours as needed for wheezing/shortness of breath. - tiZANidine (ZANAFLEX) 4 mg tablet Take 1 tablet by mouth every 8 hours as needed (muscle spasms). - FLUoxetine (PROZAC) 20 mg capsule Take 1 capsule by mouth once daily. - ondansetron (ZOFRAN) 4 mg tablet Take 1 tablet by mouth every 8 hours as needed for nausea/vomiting. - semaglutide (OZEMPIC) 0.25 mg or 0.5 mg (2 mg/3 mL) pen Inject 0.5 mg subcutaneously one time a week. - lisinopril (ZESTRIL) 10 mg tablet Take 1 tablet by mouth once daily. - rimegepant (NURTEC ODT) 75 mg disintegrating tablet Take 1 tablet by mouth once daily as needed. - topiramate (TOPAMAX) 100 mg tablet Take 1 tablet by mouth two times a day. - gabapentin (NEURONTIN) 300 mg capsule Take 1 capsule by mouth two times a day for 180 days. - naratriptan (AMERGE) 2.5 mg tablet Take 1 tablet (2.5 mg) by mouth as directed. at the onset of headache; if headache returns or does not fully resolve, the dose may be repeated after 4 hours; do not exceed five(5) mg in 24 hours. NO more than 10 doses a month. - albuterol HFA (VENTOLIN HFA) 90 mcg/actuation inhaler Inhale 2 Puffs as instructed every 4 hours as needed for wheezing/shortness of breath. - fexofenadine (ALMA ALLERGY) 180 mg tablet Take 1 tablet by mouth once daily. - Ipratropium [place] (ATROVENT) 21 mcg (0.03 %) nasal spray Use 2 Sprays in the nose every 12 hours. - omeprazole (PRILOSEC) 20 mg capsule Take 1 capsule by mouth daily before breakfast. 1/2 hr before meal. - MAGNESIUM ORAL Take by mouth. - meclizine (ANTIVERT) 25 mg tab Take 25 mg by mouth once daily. Takes two tabs in am - BIPAP - levonorgestrel (KYLEENA) 17.5 mcg/24 hrs (5 yrs) 19.5 mg IUD 1 Each by INTRAUTERINE route as directed. - Herrick-3 Fatty Acids (FISH OIL) 500 mg cap Take 1 capsule by mouth once daily. - blood sugar diagnostic (BLOOD GLUCOSE TEST) test strip Test blood sugar(s) 1 times daily. Dx: Type 2 DM - Controlled E11.9 Insulin: Yes - Lancets lancets Test blood sugar(s) 1 times daily. Dx: Type 2 DM - Controlled E11.9 Insulin: No - Hbiysymm-Ed-Xsr-Fe- FA tab Take 1 tablet by mouth once daily. 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 Normal [facility] Carbon dioxide measurementOr dered By: Jenni Martínez on 12-11-2024 CO2 [Moles/Vol] 23.0 mmol/L 21.0-32.0 [facility] Chest PA and Lateralon 12-11 Chest PA and Lateral [facility] [address] [place] [id number] Chest PA and Lateral MR#: [id number] Acct: [id number] Name: TORI GRAY Rep #: [id number] : 1980 F 44 From: Sammy Gay MD PCP: Dr. Ivette Grimes MD Status: REG CLI Study: Chest PA and Lateral Date of Exam: 12/11/24 Exam# [id number] Ordering Dr: Jenni Martínez SLITTING MACHINE OPERATOR-C EXAM: XR Chest, 2 Views CLINICAL INDICATION: TECHNIQUE: Frontal and lateral views of the chest. COMPARISON: No relevant prior studies available. FINDINGS: LUNGS AND PLEURAL SPACES: Unremarkable. No consolidation. No pneumothorax. HEART: Unremarkable. No cardiomegaly. MEDIASTINUM: Unremarkable. Normal mediastinal contour. BONES/JOINTS: Unremarkable. No acute fracture. RAD/Chest PA and Lateral IMPRESSION: No acute cardiopulmonary process. Reading Location: [facility] CC: FADUMO Martínez; Dr. 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 Air: Signed Normal [facility] Chloride measurementOrdered By: Jenni Martínez on 12-11-2024 Chloride [Moles/Vol] 107 mmol/L 98-107 [facility] Comprehensive Metabolic Prof ilon 12-11-2024 Albumin [Mass/Vol] 3.7 g/dL Normal 3.2-5.0 [facility] Comment on above: Performed By: #### L 500.4050 ####[facility] [address] [place], [address] Albumin/Globulin [Mass ratio] 0.8 {ratio} Low 0.9-2.4 [facility] Comment on above: Performed By: #### L 500.4050 ####[facility] [address] [place], [address] ALK P 84 U/L Normal 45-117 [facility] Comment on above: Performed By: #### L [id number] ####[facility] [address] [place], [address] ALT [Catalytic activity/Vol] 53 U/L Normal 13-56 [facility] Comment on above: Performed By: #### L [id number] ####[facility] [address] [place], [address] AST [Catalytic activity/Vol] 40 U/L High 15-37 [facility] Comment on above: Performed By: #### L [id number] ####[facility] [address] [place], [address] Bilirubin [Mass/Vol] 0.80 mg/dL Normal 0.20-1.00 [facility] Comment on above: Result Comment: For patients on eltrombopag therapy, use of Dimension [place] TBIL is not recommended. Performed By: #### L [id number] ####[facility] [address] [place], [address] BUN/CRE 11.5 RATIO Normal 10-20 [facility] Comment on above: Performed By: #### L [id number] ####[facility] [address] [place], [address] CA,Total 8.8 mg/dL Normal 8.5-10.1 [facility] Comment on above: Performed By: #### L [id number] ####[facility] [address] [place], [address] Chloride [Moles/Vol] 107 mmol/L Normal 98-107 [facility] Comment on above: Performed By: #### L [id number] ####[facility] [address] [place], [address] CO2 [Moles/Vol] 23.0 mmol/L Normal 21.0-32.0 [facility] Comment on above: Performed By: #### L 500.4050 ####[facility] [address] [place], [address] Creatinine [Mass/Vol] 0.78 mg/dL Normal 0.55-1.02 [facility] Comment on above: Result Comment: The validity of the calculated GFR GFRAA in patients over 70 years has not been determined. Clinical correlation is essential. Performed By: #### L [id number] ####[facility] [address] [place], [address] EST GFR - AA 104 mL/min Normal >60 [facility] Comment on above: Result Comment: Afri can [place] GFR Calc Performed By: #### L [id number] ####[facility] [address] [place], [address] GAP 7 Normal 5-15 [facility] Comment on above: Performed By: #### L [id number] ####[facility] [address] [place], [address] GFR/1.73 sq M.predicted among non-blacks MDRD (S/P/Bld) [Vol rate/Area] 86 mL/min/{1.73_m2} Normal >60 [facility] Comment on above: Result Comment: Non- GFR Calc Performed By: #### L [id number] ####[facility] [address] [place], [address] Globulin (S) [Mass/Vol] 4.5 g/dL High 2.2-4.2 [facility] Comment on above: Performed By: #### L 500.4050 ####[facility] [address] [place], [address] Glucose [Mass/Vol] 109 mg/dL High 74-106 [facility] Comment on above: Result Comment: Fast ing Glucose result from 100 to 125 mg/dL suggests IMPAIRED HOMEOSTASIS per A.D.A. criteria. Performed By: #### L [id number] ####[facility] [address] [place], [address] Potassium [Moles/Vol] 3.9 mmol/L Normal 3.5-5.1 [facility] Comment on above: Performed By: #### L 500.4050 ####[facility] [address] [place], [address] Sodium [Moles/Vol] 137 mmol/L Normal 136-145 [facility] Comment on above: Performed By: #### L [id number] ####[facility] [address] [place], [address] T PROT 8.2 g/dL Normal 6.4-8.2 [facility] Comment on above: Performed By: #### L 500.4050 ####[facility] [address] [place], [place], [address] Urea nitrogen [Mass/Vol] 9 mg/dL Normal 7-18 [facility] Comment on above: Performed By: #### L [id number] ####[facility] [address] [place], [address] Estimated glomerular filtrat ion rate (GFR) AmericanOrdered By: Jenni Martínez on 12-11-2024 Estimated GFR (MDRD) Amer 104 mL/min >60 [facility] Comment on above: GFR Calc Glomerular filtration rate ( GFR) estimationOrdered By: Jenni Martínez on 12-11-2024 Estimated GFR (MDRD) Non-Af Amer 86 mL/min >60 [facility] [facility] Comment on above: Non- GFR Calc GFR/1.73 sq M.predicted among non-blacks MDRD (S/P/Bld) [Vol rate/Area] 86 mL/min/{1.73_m2} >60 [facility] Comment on above: Non- GFR Calc Glucose measurementOrdered B y: Jenni Martínez on 12-11-2024 Glucose [Mass/Vol] 109 mg/dL High 74-106 [facility] Comment on above: Fasting Glucose resu lt from 100 to 125 mg/dL suggests IMPAIRED HOMEOSTASIS per A.D.A. criteria. Laboratory - Chemistry and C hemistry - challengeOrdered By: Jenni Martínez on 12-11-2024 AST [Catalytic activity/Vol] 40 U/L High 15-37 [facility] Potassium measurementOrdered By: Jenni Martínez on 12-11-2024 Potassium [Moles/Vol] 3.9 mmol/L 3.5-5.1 [facility] Serum anion gap measurementO rdered By: Jenni Martínez on 12-11-2024 Anion gap [Moles/Vol] 7 mmol/L 5-15 [facility] Serum globulin measurementOr dered By: Jenni Martínez on 12-11-2024 Globulin (S) [Mass/Vol] 4.5 g/dL High 2.2-4.2 [facility] Serum or plasma alanine arizmendi otransferase (ALT) measurementOrdered By: Jenni Martínez on 12-11-2024 ALT [Catalytic activity/Vol] 53 U/L 13-56 [facility] Serum or plasma albumin sharron urement (mass/volume)Ordered By: Jenni Martínez on 12-11-2024 Albumin [Mass/Vol] 3.7 g/dL 3.2-5.0 [facility] Serum or plasma alkaline toyin sphatase measurementOrdered By: Jenni Martínez on 12-11-2024 ALP [Catalytic activity/Vol] 84 U/L 45-117 [facility] Serum or plasma calcium sharron urement (mass/volume)Ordered By: Jenni Martínez on 12-11-2024 Calcium [Mass/Vol] 8.8 mg/dL 8.5-10.1 [facility] Serum or plasma creatinine m easurement (mass/volume)Ordered By: Jenni Martínez on 12-11-2024 Creatinine [Mass/Vol] 0.78 mg/dL 0.55-1.02 [facility] Comment on above: The validity of the calculated GFR & GFRAA in patients over 70 years has not been determined. Clinical correlation is essential. Serum or plasma urea nitroge n measurement (mass/volume)Ordered By: Jenni Martínez on 12-11-2024 Urea nitrogen [Mass/Vol] 9 mg/dL 7-18 [facility] Sodium levelOrdered By: Ricco Martínez on 12-11-2024 Sodium [Moles/Vol] 137 mmol/L 136-145 [facility] Total proteinOrdered By: John Martínez on 12-11-2024 Protein [Mass/Vol] 8.2 g/dL 6.4-8.2 [facility] Urine Cultureon 11-12-2024 [facility] Mixed Gram Pos Gram Neg Org [place] Count 11,000-25,000 [facility] Mixed contaminants. Submit a new specimen if indicated. Normal [facility] Comment on above: Performed By: #### M 100.2200 ####[facility] [id number] [place], [address] 12 Lead EKGon 11-11-2024 12 Lead EKG [facility] [address] [place] [address] 12 Lead EKG 11/11/24 0649 MR#: [id number] Acct: [id number] Name: TORI GRAY Rep #: [id number] : 1980 44 From: Jackson Keenan MD Attending Dr: Status: DEP ER Ordering Dr: Buddy Hall DO Date: 11/11/24 Location: ED Sex: F C Admitted: Test Reason : Blood Pressure : */* mmHG Vent. Rate : 69 BPM Atrial Rate : 69 BPM P-R Int : 144 ms QRS Dur : 90 ms QT Int : 424 ms P-R-T Axes : 50 21 -73 degrees QTcB Int : 454 ms Normal sinus rhythm Nonspecific ST and T wave abnormality Abnormal ECG Confirmed by Jackson Keenan ([id number]), editor book PRISCILA FERRERA ([id number]) on 11/12/2024 10:16:52 AM Referred By: Isabel Confirmed By: Jackson Keenan 11/12/24 1016 Date Jackson Keenan MD CC: Dr. Buddy Hall DO; Dr. Ivette Grimes MD Signed Normal [facility] Absolute neutrophil countOrd ered By: Buddy Hall on 11-11-2024 Neutrophils (Bld) [#/Vol] 6.5 10*3/uL 2.0-7.7 [facility] Albumin to globulin ratioOrd ered By: Buddy Hall on 11-11-2024 Albumin/Globulin [Mass ratio] 0.6 {ratio} Low 0.9-2.4 [facility] Bacteria LM.HPF (Urine sed) [#/Area]Ordered By: Budyd Hall on 11-11-2024 Urine Bacteria RARE /hpf None Seen [facility] Basophil percentageOrdered B y: Buddy Hall on 11-11-2024 Basophils/100 WBC (Bld) 0.4 % 0-1 [facility] Bilirubin Test strip Ql (U)O rdered By: Buddy Hall on 11-11-2024 Bilirubin Ql (U) Negative Negative [facility] Bilirubin, totalOrdered By: Buddy Hall on 11-11-2024 Bilirubin [Mass/Vol] 0.90 mg/dL 0.20-1.00 [facility] Comment on above: For patients on eltr ombopag therapy, use of Dimension [place] TBIL is not recommended. Blood urea nitrogen (BUN)/cr eatinine ratioOrdered By: Buddy Hall on 11-11-2024 Urea nitrogen/Creatinine [Mass ratio] 9.8 mg/mg Low 10-20 [facility] CBC W/Diff, Automatedon Absolute Lymph 0.72 X10 3/uL Low 0.83-4.51 [facility] Comment on above: Performed By: #### L 500.4050, L100.0100 #### [facility] Laboratory [address] [place], [address] Absolute Neut 6.5 X10 3/uL Normal 2.0-7.7 [facility] Comment on above: Performed By: #### L 500.4050, L100.0100 #### [facility] [address] [place], [address] Basophils/100 WBC (Bld) 0.4 % Normal 0-1 [facility] Comment on above: Performed By: #### L 500.4050, L100.0100 #### [facility] [address] [place], [address] Eosinophils/100 WBC (Bld) 1.2 % Normal 0-5 [facility] Comment on above: Performed By: #### L 500.4050, L100.0100 #### [facility] [address] [place], [address] Erythrocyte distribution width (RBC) [Ratio] 13.7 % Normal 11.6-14.6 [facility] Comment on above: Performed By: #### L 500.4050, L100.0100 #### [facility] [address] [place], [address] Hematocrit (Bld) [Volume fraction] 33.1 % Low 37-47 [facility] Comment on above: Performed By: #### L 500.4050, L100.0100 #### [facility] [address] [place], [address] Hemoglobin (Bld) [Mass/Vol] 11.4 g/dL Low 12.0-15.0 [facility] Comment on above: Performed By: #### L 500.4050, L100.0100 #### [facility] [address] [place], [address] IG% 1.200 High 0.0-0.9 [facility] Comment on above: Result Comment: IG% - Immature Granulocytes (promyelocytes, myelocytes and metamyelocytes) > 1% indicates that a LEFT SHIFT is Present. Performed By: #### L 500.4050, L100.0100 #### [facility] [address] [place], [address] Lymphocytes/100 WBC (Bld) 9.2 % Low 19-41 [facility] Comment on above: Performed By: #### L 500.4050, L100.0100 #### [facility] [address] [place], [address] MCH (RBC) [Entitic mass] 31.8 pg Normal 27.0-32.0 [facility] Comment on above: Performed By: #### L 500.4050, L100.0100 #### [facility] [address] [place], [address] MCHC (RBC) [Mass/Vol] 34.4 g/dL Normal 32-36 [facility] Comment on above: Performed By: #### L 500.4050, L100.0100 #### [facility] [address] [place], [address] MCV (RBC) [Entitic vol] 92.5 fL Normal 81-99 [facility] Comment on above: Performed By: #### L 500.4050, L100.0100 #### [facility] [address] [place], [address] Monocytes/100 WBC (Bld) 4.2 % Normal 0-10 [facility] Comment on above: Performed By: #### L 500.4050, L100.0100 #### [facility] [address] [place], [address] Neutrophils/100 WBC (Bld) 83.8 % High 47-70 [facility] Comment on above: Performed By: #### L 500.4050, L100.0100 #### [facility] [address] [place], [address] Nucleated RBC (Bld) [#/Vol] 0 10*3/uL Normal 0-5 [facility] Comment on above: Performed By: #### L 500.4050, L100.0100 #### [facility] [address] [place], [address] Platelet mean volume (Bld) [Entitic vol] 9.6 fL Normal 6.2-12.0 [facility] Comment on above: Performed By: #### L 500.4050, L100.0100 #### [facility] [address] [place], [address] Platelets (Bld) [#/Vol] 108 10*3/uL Low 150-450 [facility] Comment on above: Performed By: #### L 500.4050, L100.0100 #### [facility] [address] [place], [address] RBC (Bld) [#/Vol] 3.58 10*6/uL Low 4.2-5.4 [facility] Comment on above: Performed By: #### L 500.4050, L100.0100 #### [facility] [address] [place], [address] RDW SD 46.7 fl High 35.1-43.9 [facility] Comment on above: Performed By: #### L 500.4050, L100.0100 #### [facility] [address] [place], [address] WBC (Bld) [#/Vol] 7.8 10*3/uL Normal 4.4-11.0 [facility] Comment on above: Performed By: #### L 500.4050, L100.0100 #### [facility] [address] [place], [address] Carbon dioxide measurementOr dered By: Buddy Hall on 11-11-2024 CO2 [Moles/Vol] 28.0 mmol/L 21.0-32.0 [facility] Chloride measurementOrdered By: Buddy Hall on 11-11-2024 Chloride [Moles/Vol] 102 mmol/L 98-107 [facility] Comprehensive Metabolic Prof ilon 11-11-2024 Albumin [Mass/Vol] 2.6 g/dL Low 3.2-5.0 [facility] Comment on above: Performed By: #### L 500.4050, L100.0100 #### [facility] [address] [place], [address] Albumin/Globulin [Mass ratio] 0.6 {ratio} Low 0.9-2.4 [facility] Comment on above: Performed By: #### L 500.4050, L100.0100 #### [facility] [address] [place], [address] ALK P 79 U/L Normal 45-117 [facility] Comment on above: Performed By: #### L 500.4050, L100.0100 #### [facility] [address] [place], [address] ALT [Catalytic activity/Vol] 29 U/L Normal 13-56 [facility] Comment on above: Performed By: #### L 500.4050, L100.0100 #### [facility] [address] [place], [address] AST [Catalytic activity/Vol] 16 U/L Normal 15-37 [facility] Comment on above: Performed By: #### L 500.4050, L100.0100 #### [facility] [address] [place], [address] Bilirubin [Mass/Vol] 0.90 mg/dL Normal 0.20-1.00 [facility] Comment on above: Result Comment: For patients on eltrombopag therapy, use of Dimension [place] TBIL is not recommended. Performed By: #### L 500.4050, L100.0100 #### [facility] [address] [place], [address] BUN/CRE 9.8 RATIO Low 10-20 [facility] Comment on above: Performed By: #### L 500.4050, L100.0100 #### [facility] [address] [place], [address] CA,Total 8.2 mg/dL Low 8.5-10.1 [facility] Comment on above: Performed By: #### L 500.4050, L100.0100 #### [facility] [address] [place], [address] Chloride [Moles/Vol] 102 mmol/L Normal 98-107 [facility] Comment on above: Performed By: #### L 500.4050, L100.0100 #### [facility] [address] [place], [address] CO2 [Moles/Vol] 28.0 mmol/L Normal 21.0-32.0 [facility] Comment on above: Performed By: #### L 500.4050, L100.0100 #### [facility] [address] [place], [address] Creatinine [Mass/Vol] 1.12 mg/dL High 0.55-1.02 [facility] Comment on above: Result Comment: The validity of the calculated GFR GFRAA in patients over 70 years has not been determined. Clinical correlation is essential. Performed By: #### L 500.4050, L100.0100 #### [facility] [address] [place], [address] ECRCL 92.31 ml/min Normal [facility] Comment on above: Performed By: #### L 500.4050, L100.0100 #### [facility] [address] [place], [address] EST GFR - AA 69 mL/min Normal >60 [facility] Comment on above: Result Comment: Afri can Argentine GFR Calc Performed By: #### L 500.4050, L100.0100 #### [facility] [address] [place], [address] GAP 6 Normal 5-15 [facility] Comment on above: Performed By: #### L 500.4050, L100.0100 #### [facility] [address] [place], [address] GFR/1.73 sq M.predicted among non-blacks MDRD (S/P/Bld) [Vol rate/Area] 57 mL/min/{1.73_m2} Low >60 [facility] Comment on above: Result Comment: Non- GFR Calc Performed By: #### L 500.4050, L100.0100 #### [facility] [address] [place], [address] Globulin (S) [Mass/Vol] 4.0 g/dL Normal 2.2-4.2 [facility] Comment on above: Performed By: #### L 500.4050, L100.0100 #### [facility] [address] [place], [address] Glucose [Mass/Vol] 233 mg/dL High 74-106 [facility] Comment on above: Result Comment: Gluc ose result greater than or equal to 200 mg/dL suggests DIABETES MELLITUS per A.D.A. criteria. Performed By: #### L 500.4050, L100.0100 #### [facility] [address] [place], [address] Potassium [Moles/Vol] 2.6 mmol/L Invalid Interpretation Code 3.5-5.1 [facility] Comment on above: Result Comment: Crit ical Result(s) Called at: 07:34:02 11/11/2024 by: ESTEFANIA ALANIZ to Ronald Dumas. Results read back by same. Performed By: #### L 500.4050, L100.0100 #### [facility] [address] [place], [address] Sodium [Moles/Vol] 135 mmol/L Low 136-145 [facility] Comment on above: Performed By: #### L 500.4050, L100.0100 #### [facility] [address] [place], [address] T PROT 6.6 g/dL Normal 6.4-8.2 [facility] Comment on above: Performed By: #### L 500.4050, L100.0100 #### [facility] [address] [place], [address] Urea nitrogen [Mass/Vol] 11 mg/dL Normal 7-18 [facility] Comment on above: Performed By: #### L 500.4050, L100.0100 #### [facility] Laboratory [address] [place], [address] Emergency Department Summary on 11-11-2024 Emergency Department Summary [facility] Medical Records Department [address] [place] [address] Emergency Department Summary 11/11/24 MR#: [id number] Acct: [id number] Name: TORI GRAY Rep #: [id number] : 1980 44 From: Buddy Hall DO PCP: Dr. Ivette Grimes MD Status:REG ER Location: ED HPI History of Present Illness Chief Complaint: Headache Narrative Narrative: Patient is a 44-year-old female with a past medical history of LETITIA, vertigo, migraine headaches, type 2 diabetes, anxiety, nephrolithiasis who presented to the emergency department with chief complaint of headache, chills not feeling well for the last several days. States that her symptoms started on Saturday. Patient denies recent sick contacts. Patient notes that she tried to take her migraine medication and this did not help her symptoms. In the triage noted notes that she is complaining of dizziness she states that she is more lightheaded after clarification of this denies any room spinning. [facility] Medical History Abnormal ECG Prolonged Q-T interval on ECG Microalbuminuria LETITIA (obstructive sleep apnea) Back pain 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 Nausea Left shoulder pain Pain of left scapula Left upper extremity numbness Left shoulder strain Obstructive Sleep Apnea-Hypopnea Syndrome Fatty liver Type 2 diabetes mellitus with microalbuminuria Type 2 diabetes mellitus without complication, with long-term current use of insulin History of stent into kidney Anxiety Acute cholecystitis Segmental and somatic dysfunction of cervical region Migraines Acute bronchitis Acute respiratory insufficiency Dyspnea History of obstructive sleep apnea Elevated triglycerides with high cholesterol Calculus of left kidney Nonalcoholic hepatosteatosis Hydroureter, left Hydronephrosis, left Acute kidney injury Pyelonephritis Nephrolithiasis Obesity Hypertension Type 2 diabetes mellitus Segmental and somatic dysfunction of lumbar region Vertigo Left upper quadrant abdominal pain Dysuria Urinary tract infection Segmental and somatic dysfunction of pelvic region Segmental and somatic dysfunction of thoracic region Lumbar facet arthropathy Lumbosacral spondylosis Radiculopathy of lumbosacral region Disc displacement, lumbar Degeneration of intervertebral disc of lumbosacral region Home Medications ???Medication ???Instructions ???Recorded ???Last Taken ???Type blood sugar diagnostic (Blood #10 ea 04/26/20 Unknown History Glucose Test strips) ipratropium bromide 21 mcg (0.03 2 spray intranasal BID allergies 08/23/20 08/03/23 History %) nasal spray albuterol sulfate 90 mcg/actuation 2 puff inhalation Q4H PRN 08/10/22 08/03/23 History aerosol inhaler shortness of breath or wheezing fexofenadine 180 mg tablet 180 mg PO DAILY allergies 08/10/22 08/05/23 History (Allergy Relief (fexofenadine)) levonorgestrel 17.5 mcg/24 hr (up 1 device intrauterine ONCE 08/10/22 Unknown History to 5 yrs) 19.5mg intrauterine control device tizanidine 4 mg tablet 4 mg PO Q8H PRN Muscle Spasm 08/10/22 08/04/23 History omeprazole 20 mg capsule,delayed 20 mg PO DAILY PRN gerd 08/16/22 Unknown History release topiramate 100 mg tablet 100 mg PO BID seizures 08/16/22 08/05/23 History fluoxetine 20 mg capsule 20 mg PO DAILY mental health 12/28/22 08/04/23 History gabapentin 300 mg capsule 300 mg PO BID nerve pain 12/28/22 08/05/23 History lisinopril 10 mg tablet 10 mg PO DAILY blood pressure 12/28/22 08/05/23 History ondansetron HCl 4 mg tablet 4 mg PO Q8H PRN nausea 12/28/22 Unknown History rimegepant 75 mg disintegrating 75 mg PO DAILY PRN migraine 02/04/24 11/10/24 History tablet (Nurtec ODT) headache semaglutide 0.25 mg or 0.5 mg (2 0.5 mg subcut QWEEK 10/16/24 Unknown History mg/3 mL) subcutaneous pen injector (Ozempic) Allergy/AdvReac Type Severity Reaction Status Date / Time Corticosteroids Allergy Hives Verified 11/11/24 05:55 (Glucocorticoids) (steroids) lidocaine AdvReac Intermediate Hives Verified 11/11/24 05:55 Family History Father Diabetes Myocardial infarction Pancreatic cancer Mother Alcohol abuse Drug abuse Grandfather Diabetes Grandmother Lung cancer Grandmother Heart disease Triple bypass surgery Surgical History History of urethral stent ( 2019) Hx laparoscopic cholecystectomy ( 2006) H/O: ( 2006) Social History Smoking Status: Never smoker alcohol intake: never substance use type: does not use caffeine: Yes Type: coffee what type of physical activity do you partic (more content not included)... Normal [facility] Eosinophil percentageOrdered By: Buddy Hall on 11-11-2024 Eosinophils/100 WBC (Bld) 1.2 % 0-5 [facility] Epithelial cells.squamous LM Ql (Urine sed)Ordered By: Buddy Hall on 11-11-2024 Epithelial cells.squamous LM.HPF (Urine sed) [#/Area] 0 /[HPF] 5-10 [facility] Erythrocyte distribution wid th ratioOrdered By: Buddy Hall on 11-11-2024 Erythrocyte distribution width (RBC) [Ratio] 13.7 % 11.6-14.6 [facility] Erythrocyte distribution wid th standard deviationOrdered By: Buddy Hall on 11-11-2024 Erythrocyte distribution width (RBC) [Entitic vol] 46.7 fL High 35.1-43.9 [facility] Estimated glomerular filtrat ion rate (GFR) AmericanOrdered By: Buddy Hall on 11-11-2024 Estimated GFR (MDRD) Amer 69 mL/min >60 [facility] Comment on above: GFR Calc Estimation of creatinine deniz aranceOrdered By: Buddy Hall on 11-11-2024 Estimated Creatinine Clearance Calc 92.31 ml/min [facility] Glomerular filtration rate ( GFR) estimationOrdered By: Buddy Hall on 11-11-2024 Estimated GFR (MDRD) Non-Af Amer 57 mL/min Low >60 [facility] Comment on above: Non- GFR Calc Glucose Ql (U)Ordered By: Smith Hall on 11-11-2024 Urine Glucose (UA) Normal mg/dl Normal [facility] Glucose measurementOrdered B y: Buddy Hall on 11-11-2024 Glucose [Mass/Vol] 233 mg/dL High 74-106 [facility] Comment on above: Glucose result great er than or equal to 200 mg/dLsuggests DIABETES MELLITUS per A.D.A. criteria. Hematocrit Auto (Bld) [Volum e fraction]Ordered By: Buddy Hall on 11-11-2024 Hematocrit (Bld) [Volume fraction] 33.1 % Low 37-47 [facility] Hemoglobin measurementOrdere d By: Buddy Hall on 11-11-2024 Hemoglobin (Bld) [Mass/Vol] 11.4 g/dL Low 12.0-15.0 [facility] Immature granulocytes/100 WB C Auto (Bld)Ordered By: Buddy Hall on 11-11-2024 Immature granulocytes/100 WBC (Bld) 1.200 % High 0.0-0.9 [facility] Comment on above: IG% - Immature Granu locytes (promyelocytes, myelocytes and metamyelocytes) > 1% indicates that a LEFT SHIFT is Present. Influenza virus A and B and SARS-CoV-2 (COVID-19) and Respiratory syncytial virus RNAOrdered By: Buddy Hall on 11-11-2024 SARS-CoV-2 (COVID-19) RNA ALLYSON+probe Ql (Unsp spec) [facility] Ketones Test strip Ql (U)Ord ered By: Buddy Hall on 11-11-2024 Ketones Ql (U) 5 mg/dl High Negative [facility] Laboratory - Chemistry and C hemistry - challengeOrdered By: Buddy Hall on 11-11-2024 AST [Catalytic activity/Vol] 16 U/L 15-37 [facility] Lymphocytes Auto (Unsp spec) [#/Vol]Ordered By: Buddy Hall on 11-11-2024 Lymphocytes (Bld) [#/Vol] 0.72 10*3/uL Low 0.83-4.51 [facility] Lymphocytes/100 WBC Auto (Un sp spec)Ordered By: Buddy Hall on 11-11-2024 Lymphocytes/100 WBC (Bld) 9.2 % Low 19-41 [facility] M100.678on 11-11-2024 M100.678 Pending SARS-CoV-2 (COVID 19) Negative INFLUENZA A Negative INFLUENZA B Negative RSV PCR Negative Normal [facility] Comment on above: Performed By: #### M 100.678, L400.0001 ####[facility] [facility] [id number] [facility] [place] [place], [place], [address] MCV (mean corpuscular volume ) determinationOrdered By: Buddy Hall on 11-11-2024 MCV (RBC) [Entitic vol] 92.5 fL 81-99 [facility] Magnesiumon 11-11-2024 Magnesium [Mass/Vol] 1.7 mg/dL Normal 1.6-2.6 [facility] Comment on above: Performed By: #### L [id number] ####[facility] [address] [facility] [place], [place], [id number] Magnesium measurementOrdered By: Buddy Hall on 11-11-2024 Magnesium [Mass/Vol] 1.7 mg/dL 1.6-2.6 [facility] Mean corpuscular hemoglobin (MCH) determinationOrdered By: Buddy Hall on 11-11-2024 MCH (RBC) [Entitic mass] 31.8 pg 27.0-32.0 [facility] Mean corpuscular hemoglobin concentration (MCHC) determinationOrdered By: Buddy Hall on 11-11-2024 MCHC (RBC) [Mass/Vol] 34.4 g/dL 32-36 [facility] Mean platelet volume determi nationOrdered By: Buddy Hall on 11-11-2024 Platelet mean volume (Bld) [Entitic vol] 9.6 fL 6.2-12.0 [facility] Microscopic analysis of urin e for red blood cells (RBC)Ordered By: Buddy Hall on 11-11-2024 Urine RBC 0-5 SEEN /hpf 0-5 [facility] Monocyte percentageOrdered B y: Buddy Hall on 11-11-2024 Monocytes/100 WBC (Bld) 4.2 % 0-10 [facility] Mucus LM Ql (Urine sed)Order ed By: Buddy Hall on 11-11-2024 Mucus Ql (Urine sed) 0 SEEN /hpf [facility] Neutrophil percentageOrdered By: Buddy Hall on 11-11-2024 Neutrophils/100 WBC (Bld) 83.8 % High 47-70 [facility] Nitrite Test strip Ql (U)Ord ered By: Buddy Hall on 11-11-2024 Nitrite Ql (U) Negative Negative [facility] Nucleated red blood cell per centageOrdered By: Buddy Hall on 11-11-2024 Nucleated RBC/100 WBC (Bld) [Ratio] 0 % 0-5 [facility] Platelet countOrdered By: Smith Hall on 11-11-2024 Platelets (Bld) [#/Vol] 108 10*3/uL Low 150-450 [facility] Potassium measurementOrdered By: Buddy Hall on 11-11-2024 Potassium [Moles/Vol] 2.6 mmol/L Low 3.5-5.1 [facility] Comment on above: Critical Result(s) C alled at: 07:34:02 11/11/2024 by: ESTEFANIA ALANIZ to Ronald Dumas. Results read back by same. Protein Test strip Ql (U)Ord ered By: Buddy Hall on 11-11-2024 Protein Ql (U) 100 mg/dl High Negative [facility] RBC Auto (Bld) [#/Vol]Ordere d By: Buddy Hall on 11-11-2024 RBC (Bld) [#/Vol] 3.58 10*6/uL Low 4.2-5.4 [facility] Serum anion gap measurementO rdered By: Buddy Hall on 11-11-2024 Anion gap [Moles/Vol] 6 mmol/L 5-15 [facility] Serum globulin measurementOr dered By: Buddy Hall on 11-11-2024 Globulin (S) [Mass/Vol] 4.0 g/dL 2.2-4.2 [facility] Serum or plasma alanine arizmendi otransferase (ALT) measurementOrdered By: Buddy Hall on 11-11-2024 ALT [Catalytic activity/Vol] 29 U/L 13-56 [facility] Serum or plasma albumin sharron urement (mass/volume)Ordered By: Buddy Hall on 11-11-2024 Albumin [Mass/Vol] 2.6 g/dL Low 3.2-5.0 [facility] Serum or plasma alkaline toyin sphatase measurementOrdered By: Buddy Hall on 11-11-2024 ALP [Catalytic activity/Vol] 79 U/L 45-117 [facility] Serum or plasma calcium sharron urement (mass/volume)Ordered By: Buddy Hall on 11-11-2024 Calcium [Mass/Vol] 8.2 mg/dL Low 8.5-10.1 [facility] Serum or plasma creatinine m easurement (mass/volume)Ordered By: Buddy Hall on 11-11-2024 Creatinine [Mass/Vol] 1.12 mg/dL High 0.55-1.02 [facility] Comment on above: The validity of the calculated GFR & GFRAA in patients over 70 years has not been determined. Clinical correlation is essential. Serum or plasma urea nitroge n measurement (mass/volume)Ordered By: Buddy Hall on 11-11-2024 Urea nitrogen [Mass/Vol] 11 mg/dL 7-18 [facility] Sodium levelOrdered By: Ashia Hall on 11-11-2024 Sodium [Moles/Vol] 135 mmol/L Low 136-145 [facility] Total proteinOrdered By: Sim Hall on 11-11-2024 Protein [Mass/Vol] 6.6 g/dL 6.4-8.2 [facility] Urinalysis, Completeon 11-11 BACTERIA RARE Normal None Seen [facility] Comment on above: Order Comment: CLEAN CATCH Performed By: #### M 100.678, L400.0001 ####[facility] [address] [place], [address] EPI,SQUAMOUS 0-5 SEEN Normal 5-10 [facility] Comment on above: Order Comment: CLEAN CATCH Performed By: #### M 100.678, L400.0001 ####[facility] [address] [place], [address] RBC 0-5 SEEN Normal 0-5 [facility] Comment on above: Order Comment: CLEAN CATCH Performed By: #### M 100.678, L400.0001 ####[facility] [address] [place], [address] WBC 10-25 SEEN Normal 0-5 [facility] Comment on above: Order Comment: CLEAN CATCH Performed By: #### M 100.678, L400.0001 ####[facility] [address] [place], [address] Mucus Ql (Urine sed) 0 SEEN Normal [facility] Comment on above: Order Comment: CLEAN CATCH Performed By: #### M 100.678, L400.0001 ####[facility] [address] [place], [address] Urine blood detectionOrdered By: Buddy Hall on 11-11-2024 Urine Occult Blood 150 /ul High Negative [facility] Urine clarityOrdered By: Sim Hall on 11-11-2024 Clarity (U) Sl. Cloudy Clear [facility] Urine color determinationOrd ered By: Buddy Hall on 11-11-2024 Color (U) Yellow Yellow [facility] Urine cultureOrdered By: Sim Hall on 11-11-2024 Bacteria identified Cx Nom (U) Mixed Gram Pos & Gram Neg Org Abnormal [facility] Urine leukocyte esterase det ection by dipstickOrdered By: Buddy Hall on 11-11-2024 Leukocyte esterase Test strip Ql (U) 500 /ul High Negative [facility] Urine pHOrdered By: Buddy samuel on 11-11-2024 pH (U) 6.5 [pH] 5.0 - 8.0 [facility] Urine specific gravity measu rementOrdered By: Buddy Hall on 11-11-2024 Specific gravity (U) [Rel density] 1.010 1.002-1.030 [facility] Urobilinogen Ql (U)Ordered B y: Buddy Hall on 11-11-2024 Urine Urobilinogen Normal mg/dl Normal [facility] White blood cell (WBC) count Ordered By: Buddy Hall on 11-11-2024 WBC (Bld) [#/Vol] 7.8 10*3/uL 4.4-11.0 [facility] White blood cell countOrdere d By: Buddy Hall on 11-11-2024 Urine WBC 10-25 SEEN /hpf 0-5 [facility] Chiropractic Reporton 2023 Chiropractic Report [facility] [address] [place] [address] OFFICE VISIT Date of Service: 10/19/24 MR#: [id number] Acct: [id number] Name: TORI GRAY Rep #: [id number] : 1980 Provider: CONCEPCIÓN Montgomery Age/Sex: 44/F Location[facility] Status: Signed Intake Vital Signs 03/09/24 14:53 10/07/24 07:43 10/16/24 20:23 Height 5 ft 7 in 5 ft 7 in 5 ft 7 in Intake Visit Reasons: Back pain Chief Complaint: low Back pain/neck pain Is patient in pain?: Yes (Neck, back, hips) Pain scale (1-10): 10 Allergies Corticosteroids (Glucocorticoids) (steroids) Allergy (Verified 10/19/24 09:22) Hives lidocaine Adverse Reaction (Intermediate, Verified 10/19/24 09:22) Hives [facility] Medical History Abnormal ECG Prolonged Q-T interval on ECG Microalbuminuria LETITIA (obstructive sleep apnea) Back pain 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 Nausea Left shoulder pain Pain of left scapula Left upper extremity numbness Left shoulder strain Obstructive Sleep Apnea-Hypopnea Syndrome Fatty liver Type 2 diabetes mellitus with microalbuminuria Type 2 diabetes mellitus without complication, with long-term current use of insulin History of stent into kidney Anxiety Acute cholecystitis Segmental and somatic dysfunction of cervical region Migraines Acute bronchitis Acute respiratory insufficiency Dyspnea History of obstructive sleep apnea Elevated triglycerides with high cholesterol Calculus of left kidney Nonalcoholic hepatosteatosis Hydroureter, left Hydronephrosis, left Acute kidney injury Pyelonephritis Nephrolithiasis Obesity Hypertension Type 2 diabetes mellitus Segmental and somatic dysfunction of lumbar region Vertigo Left upper quadrant abdominal pain Dysuria Urinary tract infection Segmental and somatic dysfunction of pelvic region Segmental and somatic dysfunction of thoracic region Lumbar facet arthropathy Lumbosacral spondylosis Radiculopathy of lumbosacral region Disc displacement, lumbar Degeneration of intervertebral disc of lumbosacral region Surgical History History of urethral stent ( 2019) Hx laparoscopic cholecystectomy ( 2006) H/O: ( 2006) Family History Father Diabetes Myocardial infarction Pancreatic cancer Mother Alcohol abuse Drug abuse Grandfather Diabetes Grandmother Lung cancer Grandmother Heart disease Triple bypass surgery Social History Smoking Status: Never smoker alcohol intake: never substance use type: does not use caffeine: Yes Type: coffee what type of physical activity do you participate in: walking frequency: daily seatbelt use: always do you feel safe at home: Yes HPI Back pain Chief Complaint: neck/low back pain Visit Number: 12 Details: Tori is a 44 y/o F here today to f/u with ongoing neck and low back pain. She reports falling at work at [employer] Saturday. She was setting dishes down when she slipped and fell face forward. She landed face first on the ground and her head hit a piece of metal. She did go to the ER and had CT of head, pelvic and lumbar x-rays which were all negative for fracture. She complains of neck pain and stiffness that extends into her upper back. She also has a headache and has been dizzy. She also complains of mid and low back pain that is equal bilaterally. She complains of pain and knots in her right hip. She reports severe stiffness in her entire spine. She rates her pain 10/10 and has been taking Tylenol around the clock. She treats pain at home by using a TENS unit and alternates Tylenol and Aleve as needed. Pt. denies numbness, tingling or radiculopathy today. Pt. reports chiropractic adjustments are helpful in relieving her back pain and discomfort but it gradually returns. Onset: 06/04/23 Location: low back/neck Duration: constant Aggravating or associated factors: ROM,work Relieving factors: heat, ice, chiro Pain Quality: aching, dull and sharp Current Sensation: other (numbness) Exam Musc General: Yes normal posture, normal gait, joint tenderness and decreased range of motion Cervical Spine: Yes loss of normal cervical lordosis (mild anterior head carriage), Yes cervical muscular tenderness right greater than left diffuse , Yes pain with cervical ROM with lateral flexion to right, with lateral flexion to left, with rotation to left, with rotation to right, with anterior flexion and with extension, Yes cervical spasm right greater than left lower trapezius and paracervical muscles and Yes misalignment misalignment: C5, C6 and C7 Thoracic/Lumber: No thoracic and lumbar spine nor (more content not included)... Normal [facility] Brain/Head without Contrasto n 10-16-2024 Brain/Head without Contrast [facility] [address] [place] [place], [place] [address] Brain/Head without Contrast MR#: [id number] Acct: [id number] Name: TORI GRAY Rep #: [id number] : 1980 F 44 From: Samir Brito MD PCP: Dr. Ivette Grimes MD Status: 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 A radiation dose optimization technique was used for this scan. RADIATION DOSAGE (If Supplied By Facility): CTDIvol/DLP = ( 44.99 ) / ( 779.24 ) mGy/mGycm COMPARISON: 08/05/[address] Findings: Serial CT axial images of the head without contrast. BRAIN PARENCHYMA: Normal matias-white matter differentiation. No evidence of intraparenchymal hemorrhage or hyperattenuating extra-axial fluid collection. BONES: Paranasal sinuses are clear. SCALP/REMAINING SOFT TISSUES: Unremarkable. ASPECTS Score for Acute Strokes, if applicable: 10 CT/Brain/Head without Contrast IMPRESSION: No acute intracranial hemorrhage in this noncontrast head CT. Electronically Signed: Samir Brito MD at 21:12 EST , CC: FADUMO Ji; Dr. 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 Air: Signed Normal [facility] Emergency Department Summary on 10-16-2024 Emergency Department Summary [facility] Medical Records Department [address] [place] [address] Emergency Department Summary 10/16/24 MR#: [id number] Acct: [id number] Name: TORI GRAY Rep #: [id number] : 1980 44 From: Sam Pearl MD PCP: Dr. Ivette Grimes MD Status:DEP ER Location: ED HPI History of Present Illness Chief Complaint: Fall Narrative Narrative: Patient is a 44-year-old female with history of obesity, hypertension, chronic back pain, sleep apnea who presents to the emergency department after mechanical fall while at work. 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 Patient did strike the right side of her head on a metal shelf, denies any LOC, she was able to get herself up. Patient complains of a headache, nausea, slight dizziness, neck pain, right hip pain and lower back pain. This will be Worker's Comp. [facility] Medical History Abnormal ECG Prolonged Q-T interval on ECG Microalbuminuria LETITIA (obstructive sleep apnea) Back pain 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 Nausea Left shoulder pain Pain of left scapula Left upper extremity numbness Left shoulder strain Obstructive Sleep Apnea-Hypopnea Syndrome Fatty liver Type 2 diabetes mellitus with microalbuminuria Type 2 diabetes mellitus without complication, with long-term current use of insulin History of stent into kidney Anxiety Acute cholecystitis Segmental and somatic dysfunction of cervical region Migraines Acute bronchitis Acute respiratory insufficiency Dyspnea History of obstructive sleep apnea Elevated triglycerides with high cholesterol Calculus of left kidney Nonalcoholic hepatosteatosis Hydroureter, left Hydronephrosis, left Acute kidney injury Pyelonephritis Nephrolithiasis Obesity Hypertension Type 2 diabetes mellitus Segmental and somatic dysfunction of lumbar region Vertigo Left upper quadrant abdominal pain Dysuria Urinary tract infection Segmental and somatic dysfunction of pelvic region Segmental and somatic dysfunction of thoracic region Lumbar facet arthropathy Lumbosacral spondylosis Radiculopathy of lumbosacral region Disc displacement, lumbar Degeneration of intervertebral disc of lumbosacral region Home Medications ???Medication ???Instructions ???Recorded ???Last Taken ???Type blood sugar diagnostic (Blood #10 ea 04/26/20 Unknown History Glucose Test strips) ipratropium bromide 21 mcg (0.03 2 spray intranasal BID allergies 08/23/20 08/03/23 History %) nasal spray albuterol sulfate 90 mcg/actuation 2 puff inhalation Q4H PRN 08/10/22 08/03/23 History aerosol inhaler shortness of breath or wheezing fexofenadine 180 mg tablet 180 mg PO DAILY allergies 08/10/22 08/05/23 History (Allergy Relief (fexofenadine)) levonorgestrel 17.5 mcg/24 hr (up 1 device intrauterine ONCE 08/10/22 Unknown History to 5 yrs) 19.5mg intrauterine control device tizanidine 4 mg tablet 4 mg PO Q8H PRN Muscle Spasm 08/10/22 08/04/23 History omeprazole 20 mg capsule,delayed 20 mg PO DAILY PRN gerd 08/16/22 Unknown History release topiramate 100 mg tablet 100 mg PO BID seizures 08/16/22 08/05/23 History fluoxetine 20 mg capsule 20 mg PO DAILY mental health 12/28/22 08/04/23 History gabapentin 300 mg capsule 300 mg PO BID nerve pain 12/28/22 08/05/23 History lisinopril 10 mg tablet 10 mg PO DAILY blood pressure 12/28/22 08/05/23 History ondansetron HCl 4 mg tablet 4 mg PO Q8H PRN nausea 12/28/22 Unknown History rimegepant 75 mg disintegrating 75 mg PO DAILY PRN migraine 02/04/24 Unknown History tablet (Nurtec ODT) headache semaglutide 0.25 mg or 0.5 mg (2 0.5 mg subcut QWEEK 10/16/24 Unknown History mg/3 mL) subcutaneous pen injector (Ozempic) Allergy/AdvReac Type Severity Reaction Status Date / Time Corticosteroids Allergy Hives Verified 10/16/24 20:23 (Glucocorticoids) (steroids) lidocaine AdvReac Intermediate Hives Verified 10/16/24 20:23 Family History Father Diabetes Myocardial infarction Pancreatic cancer Mother Alcohol abuse Drug abuse Grandfather Diabetes Grandmother Lung cancer Grandmother Heart disease Triple bypass surgery Surgical History History of urethral stent ( 2018) Hx laparoscopic cholecystectomy ( 2005) H/O: ( 2005) Social History Smoking Status: Never smoker alcohol intake: never substance use type: does not use caffeine: Yes Type: coffee what type of physical activity do you participate in: walking frequency: daily seatbelt use: always do you feel safe at home: Yes (more content not included)... Normal [facility] HIP, UNI W/ Pelvis 2-3 Views on 10-16-2024 HIP, UNI W/ Pelvis 2-3 Views [facility] [address] [place], [place] [id number] HIP, UNI W/ Pelvis 2-3 Views MR#: [id number] Acct: [id number] Name: TORI GRAY Rep #: [id number] : 1980 F 44 From: Samir Brito MD PCP: Dr. 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 FINDINGS: Single frontal view the pelvis. 2 views of the right hip. BONES: Normal anatomic alignment without evidence of fracture or subluxation. No concerning bony lesion or abnormal sclerosis to suggest lesion. JOINTS: No significant degenerative change. SOFT TISSUES: IUD in place within the central pelvis. RAD/HIP, UNI W/ Pelvis 2-3 Views IMPRESSION: No acute osseous abnormality of the pelvis or right hip. Electronically Signed: Samir Brito MD at 21:27 EST , CC: FADUMO Ji; Dr. 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 Air: Signed Normal [facility] Lumbar Spine 2 or 3 Views10-16-2024 Lumbar Spine 2 or 3 Views [facility] [address] [place] [id number] Lumbar Spine 2 or 3 Views MR#: [id number] Acct: [id number] Name: TORI GRAY Rep #: [id number] : 1980 F 44 From: Samir Brito MD PCP: Dr. Ivette Grimes MD Status: [facility] ER Study: Lumbar Spine 2 or 3 Views Date of Exam: Exam# [id number] Ordering Dr: Angel Ji [id number] INDICATION: fall EXAMINATION/TECHNIQ UE: X-RAY - XR Spine Lumbar 2 or 3 Views COMPARISON: None. FINDINGS: 2 views of the lumbar spine. BONES: Again is noted lower thoracic spine vertebral body anterior wedging, likely developmental. Otherwise, anatomic alignment without evidence of fracture or subluxation. No concerning bony lesion or abnormal sclerosis to suggest lesion. DISCS/JOINTS: No significant degenerative change. SOFT TISSUES: IUD in place within the central pelvis. Again is noted nephrolith in place within the left renal pelvis measuring up to 8 mm. RAD/Lumbar Spine 2 or 3 Views IMPRESSION: Unremarkable lumbar spine. If there is persistent clinical concern for spine fracture in this trauma patient, recommend dedicated lumbar spine CT. Electronically Signed: Samir Brito MD at 21:34 EST , CC: FADUMO Ji; Dr. 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 Air: Signed Normal [facility] Spine Cervical without Contr ason 10-16-2024 Spine Cervical without Contras [facility] [address] [place] [address] Spine Cervical without Contras MR#: [id number] Acct: [id number] Name: TORI GRAY Rep #: [id number] : 1980 F 44 From: Samir Brito MD PCP: Dr. Ivette Grimes MD Status: REG ER Study: Spine Cervical without Contras Date of Exam: 12/17/23 Exam# [id number] Ordering Dr: Angel Ji [id number] INDICATION: fall EXAMINATION: CT SPINE - CT Spine Cervical W/O Contrast Injection COMPARISON: None. A radiation dose optimization technique was used for this scan. RADIATION DOSAGE (If Supplied By Facility): CTDIvol/DLP = ( 28.98 ) / ( 625.10 ) mGy/mGycm Findings: Serial CT axial images through the cervical spine, with coronal and sagittal reformatted series. BONES: No evidence of cervical spine fracture or subluxation. No concerning bony lesion or abnormal sclerosis to suggest lesion. DISCS/JOINTS: No significant degenerative change. SOFT TISSUES: Soft tissue structures are unremarkable. CT/Spine Cervical without Contras IMPRESSION: Cervical spine without evidence of acute fracture. Electronically Signed: Samir Brito MD at 21:23 EST , CC: FADUMO Ji; Dr. 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 Air: Signed Normal [facility] Chiropractic Reporton 2023 Chiropractic Report [facility] [address] [place] [address] OFFICE VISIT Date of Service: 09/09/24 MR#: [id number] Acct: [id number] Name: TORI GRAY Rep #: [id number] : 1980 Provider: CONCEPCIÓN Montgomery Age/Sex: 44/F Location: [facility] Status: Signed Intake Vital Signs 03/09/24 14:53 Height 5 ft 7 in Intake Visit Reasons: Back pain Chief Complaint: low Back pain/neck pain Is patient in pain?: Yes (low back ) Pain scale (1-10): 2 Allergies Corticosteroids (Glucocorticoids) (steroids) Allergy (Verified 09/09/24 10:06) Hives lidocaine Adverse Reaction (Intermediate, Verified 09/09/24 10:06) Hives Medications ???Medication ???Instructions ???Recorded ???Confirmed ???Type blood sugar diagnostic (Blood #10 ea 04/26/20 09/09/24 History Glucose Test strips) ipratropium bromide 21 mcg (0.03 2 spray intranasal BID allergies 08/23/20 09/09/24 History %) nasal spray omega-3 fatty acids 1,000 mg 1,000 mg PO DAILY supplement 02/21/21 09/09/24 History capsule (Fish Oil Concentrate) albuterol sulfate 90 mcg/actuation 2 puff inhalation Q4H PRN 08/10/22 09/09/24 History aerosol inhaler shortness of breath or wheezing dulaglutide 0.75 mg/0.5 mL 0.75 mg subcut QWEEK diabetes 08/10/22 09/09/24 History subcutaneous pen injector (Trulicity) fexofenadine 180 mg tablet 180 mg PO DAILY allergies 08/10/22 09/09/24 History (Allergy Relief (fexofenadine)) levonorgestrel 17.5 mcg/24 hr (up 1 device intrauterine ONCE 08/10/22 09/09/24 History to 5 yrs) 19.5mg intrauterine control device tizanidine 4 mg tablet 4 mg PO Q8H PRN Muscle Spasm 08/10/22 09/09/24 History omeprazole 20 mg capsule,delayed 20 mg PO DAILY PRN gerd 08/16/22 09/09/24 History release topiramate 100 mg tablet 100 mg PO BID seizures 08/16/22 09/09/24 History fluoxetine 20 mg capsule 20 mg PO DAILY mental health 12/28/22 09/09/24 History gabapentin 300 mg capsule 300 mg PO BID nerve pain 12/28/22 09/09/24 History lisinopril 10 mg tablet 10 mg PO DAILY blood pressure 12/28/22 09/09/24 History ondansetron HCl 4 mg tablet 4 mg PO Q8H PRN nausea 12/28/22 09/09/24 History rimegepant 75 mg disintegrating 75 mg PO DAILY PRN migraine 02/04/24 09/09/24 History tablet (Nurtec ODT) headache PFSH Medical History Abnormal ECG Prolonged Q-T interval on ECG Microalbuminuria LETITIA (obstructive sleep apnea) Back pain 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 Nausea Left shoulder pain Pain of left scapula Left upper extremity numbness Left shoulder strain Obstructive Sleep Apnea-Hypopnea Syndrome Fatty liver Type 2 diabetes mellitus with microalbuminuria Type 2 diabetes mellitus without complication, with long-term current use of insulin History of stent into kidney Anxiety Acute cholecystitis Segmental and somatic dysfunction of cervical region Migraines Acute bronchitis Acute respiratory insufficiency Dyspnea History of obstructive sleep apnea Elevated triglycerides with high cholesterol Calculus of left kidney Nonalcoholic hepatosteatosis Hydroureter, left Hydronephrosis, left Acute kidney injury Pyelonephritis Nephrolithiasis Obesity Hypertension Type 2 diabetes mellitus Segmental and somatic dysfunction of lumbar region Vertigo Left upper quadrant abdominal pain Dysuria Urinary tract infection Segmental and somatic dysfunction of pelvic region Segmental and somatic dysfunction of thoracic region Lumbar facet arthropathy Lumbosacral spondylosis Radiculopathy of lumbosacral region Disc displacement, lumbar Degeneration of intervertebral disc of lumbosacral region Surgical History History of urethral stent ( 2019) Hx laparoscopic cholecystectomy ( 2006) H/O: ( 2006) Family History Father Diabetes Myocardial infarction Pancreatic cancer Mother Alcohol abuse Drug abuse Grandfather Diabetes Grandmother Lung cancer Grandmother Heart disease Triple bypass surgery Social History Smoking Status: Never smoker alcohol intake: never substance use type: does not use caffeine: Yes Type: coffee what type of physical activity do you participate in: walking frequency: daily seatbelt use: always do you feel safe at home: Yes HPI Back pain Chief Complaint: neck/low back pain Visit Number: 11 Details: Tori is a 44 y/o F here today to f/u with ongoing neck and low back pain. Pt advises she is experiencing some mild low back tightness/achiness bilaterally today, she rates her discomfort 2/10. 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 [facility] Office Visit ([facility]) ---- ISAACTORI Ivan ([id number]) 1980 F Date Time Provider Department 09/03/24 1:00 PM FATUMA BECKFORD [facility] During your visit today, we recorded the following information about you: Pulse Blood pressure Weight Height 67/minute 153/71 126.9 kg 1.702 m Fatuma Beckford PA-C 09/03/2024 1:30 PM Signed Follow-Up Onabotulinum Toxin A (BotoxTM) for Migraine Indication: Chronic Intractable Migraine Treatment #: 6 Referral Expiration: 11/03/2024 Prior to the initiation of the FIRST treatment with Onabotulinum Toxin A, the patient reported the following average headache frequency over the past 3 MONTHS: Number of moderate-severe migraine days/month: 30 (daily) Number of mild migraine days/month: 0 Number of headache free days/month: 0 (0 headache-free hours) Migraine severity: 10/10 After treatment with Onabotulinum Toxin A: Number of moderate-severe migraine days/month: 0 Number of mild migraine days/month: 0 Number of headache free days/month: 30 (720 headache-free hours) Migraine severity: 0/10 Patient reduction in overall migraine days: Yes Patient reduction in moderate-severe migraine days: Yes Patient reduction of headache hours by 100 hours or more: Yes (reduction of 720 hours) Individual has obtained clinical benefit deemed significant by individual or prescriber (Y/N): Yes Patient's quality of life and ability to perform ADLs has improved (Y/N): Yes Side effects: none Wearing off: No The patient has been assessed for disorders which could contribute to breathing or swallowing difficulty, and there is no contraindication with PREEMPT Botox. There is no documented allergic reaction/hypersensi tivity to any botulinum toxin and there is no active infection at proposed injection site. HEADACHE SCORES: 11/14/2022 02/13/2023 07/14/2023 VAHE - 2/7 SCORES VAHE-2 Score 1 2 4 VAHE-7 Score 2 6 12 07/03/2024 06/03/2024 12/06/2023 PHQ-9 Score 1 5 3 LMP (LMP Unknown) Patient name: Tori Gray : 1980 ALLERGIES Allergen Reactions Farxiga [Dapagliflo* GI Upset Lidocaine Hives Metformin GI Upset Steroids [Betametha* Hives UNIVERSAL PROTOCOL / SAFETY CHECKLIST Procedure: Onabotulinum toxin A for migraine Informed Consent Consent Obtained: Written [place] Protocol A moment to CARE was completed SIGN IN Personnel directly involved with the procedure wore the appropriate PPE Special Equipment: N/A Patient/Surrogate Stated/Verified: Patient name, Date of , Relevant allergies and Intended procedure TIME OUT Intended patient and procedure match the source document(s) Consent documented and matches the intended procedure No relevant labs, photos, and/or imaging studies were applicable for review. No correct side/site applicable for marking and visibility. No medications required for procedure. No fire risk assessment and interventions applicable. No implant(s) inserted. SIGN OUT No specimen collected. No instruments, equipment or retained foreign bodies applicable. 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 Patient continuing to take topiramate and Nurtec 75mg for onset of headache, works well. Will return in 12 weeks for repeat botox therapy. Reauthorization needed. Notes that the botox has lasted a lot longer, recently switched jobs and feels that may be increasing headaches. Only had 1 every few weeks, mild. Estimates 5 migraines since march. JONNY Rider Melanie, PA-C 09/03/2024 1:14 PM Addendum Green light therapy Botox Home Instruction: Instruction after botox injection: - If you have any pain or swelling use ice, 20 min on and 20 min off. Do not rub or massage the area for 48 hrs. - If you have any neck stiffness, you may use heat and do stretching exercises. - This should improve over the next 5 days. - If it does not, call our office for further instructions. Referring Provider: FATUMA BECKFORD [[id number]] Allergies As of Date: 09/03/2024 Noted Allergy Reaction FARXIGA (DAP (more content not included)... Normal [facility] 09-01-2024 [facility] Telephone ([facility]) ---- ISACATORI Love ([id number]) 1980 F Date Time Provider Department 09/01/24 FATUMA BECKFORD [facility] During your visit today, we recorded the following information about you: EmiliaSteph 09/01/2024 3:33 PM Signed 09/10 Shakeel appt rescheduled to 10/08 and put on wait list. Provider will be out of office. 1st attempt to notify pt, sent [facility] message. Tala Wilson 09/01/2024 3:54 PM Signed Patient read Rebecca Antony 09/01/2024 4:02 PM Signed Fatuma Matute Ok'ed the use of a new patient time slot for Tori due to this being her third reschedule for botox. I have tentatively scheduled her, but left the October botox scheduled in case it is still needed. Voicemail left for patient and will try again to ensure she is OK with this date and time. Rebecca Baker Allergies As of Date: 09/01/2024 Noted Allergy Reaction FARXIGA (DAPAGLIFLOZIN) 08/05/2024 8 - GI Upset LIDOCAINE 12/24/2019 4 - Hives METFORMIN 08/05/2024 8 - GI Upset STEROIDS (BETAMETHASONE DIPROPION* 2 4 - Hives Date Reviewed: 08/05/2024 Reviewed by: Nirmala Storey LPN - Fully Assessed Reason for Visit: Appointment [[id number]] Prescriptions as of 09/01/2024 - tiZANidine (ZANAFLEX) 4 mg tablet Take 1 tablet by mouth every 8 hours as needed. - semaglutide (OZEMPIC) 0.25 mg or 0.5 mg (2 mg/3 mL) pen Inject 0.25 mg subcutaneously one time a week. - FLUoxetine (PROZAC) 20 mg capsule Take 1 capsule by mouth once daily. - topiramate (TOPAMAX) 100 mg tablet Take 1 tablet by mouth two times a day. - gabapentin (NEURONTIN) 300 mg capsule Take 1 capsule by mouth two times a day for 180 days. - lisinopril (ZESTRIL) 10 mg tablet Take 1 tablet by mouth once daily. - rimegepant (NURTEC ODT) 75 mg disintegrating tablet Take 1 tablet by mouth once daily as needed. - naratriptan (AMERGE) 2.5 mg tablet Take 1 tablet (2.5 mg) by mouth as directed. at the onset of headache; if headache returns or does not fully resolve, the dose may be repeated after 4 hours; do not exceed five(5) mg in 24 hours. NO more than 10 doses a month. - albuterol HFA (VENTOLIN HFA) 90 mcg/actuation inhaler Inhale 2 Puffs as instructed every 4 hours as needed for wheezing/shortness of breath. - fexofenadine (ALMA ALLERGY) 180 mg tablet Take 1 tablet by mouth once daily. - albuterol HFA (VENTOLIN HFA) 90 mcg/actuation inhaler Inhale 2 Puffs as instructed every 4 hours as needed for wheezing/shortness of breath. - Ipratropium [place] (ATROVENT) 21 mcg (0.03 %) nasal spray Use 2 Sprays in the nose every 12 hours. - omeprazole (PRILOSEC) 20 mg capsule Take 1 capsule by mouth daily before breakfast. 1/2 hr before meal. - MAGNESIUM ORAL Take by mouth. - meclizine (ANTIVERT) 25 mg tab Take 25 mg by mouth once daily. Takes two tabs in am - BIPAP - levonorgestrel (KYLEENA) 17.5 mcg/24 hrs (5 yrs) 19.5 mg IUD 1 Each by INTRAUTERINE route as directed. - Herrick-3 Fatty Acids (FISH OIL) 500 mg cap Take 1 capsule by mouth once daily. - blood sugar diagnostic (BLOOD GLUCOSE TEST) test strip Test blood sugar(s) 1 times daily. Dx: Type 2 DM - Controlled E11.9 Insulin: Yes - Lancets lancets Test blood sugar(s) 1 times daily. Dx: Type 2 DM - Controlled E11.9 Insulin: No - Qpqonlqf-An-Yav-Fe- FA tab Take 1 tablet by mouth once daily. Meds Comments as of 03/01/2019: Percocet March 01, 2019 Stephanie Suresh RN Problem List As Of Date 09/01/2024 Noted Resolved SUPERVIS NORMAL 1ST PREG [Z34.00] 11/09/2005 07/02/2006 TRANS HYPERTEN-ANTEPART [O13.9] 06/19/2006 07/02/2006 KERATOSIS PILARIS////SKIN ANOMALY NEC [Q82.8] 03/26/2007 01/23/2010 Other Acne [L70.8] 03/26/2007 FOLLICULITIS///HAIR DISEASES NEC [L67.8, L73.8] 03/26/2007 01/23/2010 Lichenification and Lichen Simplex Chronicus [L*03/26/2007 01/23/2010 DERMATOFIBROMA///BE NIGN KAILEY SKIN ARM [D23.60] 03/26/2007 01/23/2010 Contact Dermatitis and Other Eczema, due to Uns*03/26/2007 01/23/2010 SACROILIITIS [M46.1] 05/06/2009 01/23/2010 Routine general medical examination at [facility]*01/23/2010 12/06/2012 Class: Chronic Routine gynecological examination [Z01.419] 01/23/2010 02/22/2014 Class: Chronic Morbid Obesity [E66.01] 01/23/2010 Lumbar Disc Disorder [M51.9] 02/16/2010 Routine general medical examination at [facility]*12/06/2012 02/22/2014 Anxiety [F41.9] 06/07/2014 Type 2 diabetes mellitus with microalbuminuria,*0 07/04/2018 Fatty liver [K76.0] 07/21/2018 08/05/2024 LETITIA (obstructive sleep apnea) [G47.33] 07/21/2018 Microalbuminuria [R80.9] 09/30/2018 09/04/2022 Obesity, Class III, BMI >= 40 [E66.01] 11/26/2019 09/04/2022 Prolonged Q-T interval on ECG [R94.31] 03/31/2020 Calculus of kidney [N20.0] 09/04/2022 Chest pain [R07.9] 09/04/2022 09/04/2022 Contusion of knee [S80.00XA] 09/04/2022 09/04/2022 Essential (primary) hypertension [I10] 08/16/2022 Fall (more content not included)... Normal [facility] Telephone ([facility]) ---- ISAACTORI Love ([id number]) 1980 F Date Time Provider Department 09/01/24 FATUMA BECKFORD [facility] During your visit today, we recorded the following information about you: Rebecca Baker 09/01/2024 4:11 PM Signed Tori was Ok'ed to get her botox appointment moved into a new patient time due to frequent rescheduling of this visit. She is now scheduled for , 09/03. She has also requested a refill of her Nurtec ODT medication. Please advise, Rebecca Baker Allergies As of Date: 09/01/2024 Noted Allergy Reaction FARXIGA (DAPAGLIFLOZIN) 08/05/2024 8 - GI Upset LIDOCAINE 12/24/2019 4 - Hives METFORMIN 08/05/2024 8 - GI Upset STEROIDS (BETAMETHASONE DIPROPION* 2 4 - Hives Date Reviewed: 08/05/2024 Reviewed by: Nirmala Storey LPN - Fully Assessed Reason for Visit: Patient Question [5237] Order(s):rimegepant (NURTEC ODT) 75 mg disintegrating tabletTake 1 tablet by mouth once daily as needed.Disp: 8 tabletRfl: 2 Prescriptions as of 09/02/2024 - rimegepant (NURTEC ODT) 75 mg disintegrating tablet Take 1 tablet by mouth once daily as needed. - tiZANidine (ZANAFLEX) 4 mg tablet Take 1 tablet by mouth every 8 hours as needed. - semaglutide (OZEMPIC) 0.25 mg or 0.5 mg (2 mg/3 mL) pen Inject 0.25 mg subcutaneously one time a week. - FLUoxetine (PROZAC) 20 mg capsule Take 1 capsule by mouth once daily. - topiramate (TOPAMAX) 100 mg tablet Take 1 tablet by mouth two times a day. - gabapentin (NEURONTIN) 300 mg capsule Take 1 capsule by mouth two times a day for 180 days. - lisinopril (ZESTRIL) 10 mg tablet Take 1 tablet by mouth once daily. - naratriptan (AMERGE) 2.5 mg tablet Take 1 tablet (2.5 mg) by mouth as directed. at the onset of headache; if headache returns or does not fully resolve, the dose may be repeated after 4 hours; do not exceed five(5) mg in 24 hours. NO more than 10 doses a month. - albuterol HFA (VENTOLIN HFA) 90 mcg/actuation inhaler Inhale 2 Puffs as instructed every 4 hours as needed for wheezing/shortness of breath. - fexofenadine (ALMA ALLERGY) 180 mg tablet Take 1 tablet by mouth once daily. - albuterol HFA (VENTOLIN HFA) 90 mcg/actuation inhaler Inhale 2 Puffs as instructed every 4 hours as needed for wheezing/shortness of breath. - Ipratropium [place] (ATROVENT) 21 mcg (0.03 %) nasal spray Use 2 Sprays in the nose every 12 hours. - omeprazole (PRILOSEC) 20 mg capsule Take 1 capsule by mouth daily before breakfast. 1/2 hr before meal. - MAGNESIUM ORAL Take by mouth. - meclizine (ANTIVERT) 25 mg tab Take 25 mg by mouth once daily. Takes two tabs in am - BIPAP - levonorgestrel (KYLEENA) 17.5 mcg/24 hrs (5 yrs) 19.5 mg IUD 1 Each by INTRAUTERINE route as directed. - Herrick-3 Fatty Acids (FISH OIL) 500 mg cap Take 1 capsule by mouth once daily. - blood sugar diagnostic (BLOOD GLUCOSE TEST) test strip Test blood sugar(s) 1 times daily. Dx: Type 2 DM - Controlled E11.9 Insulin: Yes - Lancets lancets Test blood sugar(s) 1 times daily. Dx: Type 2 DM - Controlled E11.9 Insulin: No - Qpucitdz-Yv-Nkq-Fe- FA tab Take 1 tablet by mouth once daily. Meds Comments as of 03/01/2019: Percocet March 01, 2019 Stephanie Suresh RN Problem List As Of Date 09/01/2024 Noted Resolved SUPERVIS NORMAL 1ST PREG [Z34.00] 11/09/2005 07/02/2006 TRANS HYPERTEN-ANTEPART [O13.9] 06/19/2006 07/02/2006 KERATOSIS PILARIS////SKIN ANOMALY NEC [Q82.8] 03/26/2007 01/23/2010 Other Acne [L70.8] 03/26/2007 FOLLICULITIS///HAIR DISEASES NEC [L67.8, L73.8] 03/26/2007 01/23/2010 Lichenification and Lichen Simplex Chronicus [L*03/26/2007 01/23/2010 DERMATOFIBROMA///BE NIGN KAILEY SKIN ARM [D23.60] 03/26/2007 01/23/2010 Contact Dermatitis and Other Eczema, due to Uns*03/26/2007 01/23/2010 SACROILIITIS [M46.1] 05/06/2009 01/23/2010 Routine general medical examination at [facility]*01/23/2010 12/06/2012 Class: Chronic Routine gynecological examination [Z01.419] 01/23/2010 02/22/2014 Class: Chronic Morbid Obesity [E66.01] 01/23/2010 Lumbar Disc Disorder [M51.9] 02/16/2010 Routine general medical examination at [facility]*12/06/2012 02/22/2014 Anxiety [F41.9] 06/07/2014 Type 2 diabetes mellitus with microalbuminuria,*0 07/04/2018 Fatty liver [K76.0] 07/21/2018 08/05/2024 LETITIA (obstructive sleep apnea) [G47.33] 07/21/2018 Microalbuminuria [R80.9] 09/30/2018 09/04/2022 Obesity, Class III, BMI >= 40 [E66.01] 11/26/2019 09/04/2022 Prolonged Q-T interval on ECG [R94.31] 03/31/2020 Calculus of kidney [N20.0] 09/04/2022 Chest pain [R07.9] 09/04/2022 09/04/2022 Contusion of knee [S80.00XA] 09/04/2022 09/04/2022 Essential (primary) hypertension [I10] 08/16/2022 Fall [W19.XXXA] 09/04/2022 09/04/2022 Headache [R51] 09/04/2022 09/04/2022 Herniation of lumbar intervertebral disc with r*06/10/2017 History of type 2 diabetes mellitus [Z86. (more content not included)... Normal [facility] Chiropractic Reporton 2023 Chiropractic Report [facility] Chiropractic [facility] [place] [address] OFFICE VISIT Date of Service: 08/25/24 MR#: [id number] Acct: [id number] Name: TORI GRAY Rep #: [id number] : 1980 Provider: CONCEPCIÓN Motngomery Age/Sex: 44/F [place] [facility] Status: Signed Intake Vital Signs 03/09/24 14:53 Height 5 ft 7 in Intake Visit Reasons: Back pain Chief Complaint: low Back pain/neck pain Is patient in pain?: Yes Pain scale (1-10): 7 Allergies Corticosteroids (Glucocorticoids) (steroids) Allergy (Verified 08/25/24 09:29) Hives lidocaine Adverse Reaction (Intermediate, Verified 08/25/24 09:29) Hives [facility] Medical History Abnormal ECG Prolonged Q-T interval on ECG Microalbuminuria LETITIA (obstructive sleep apnea) Back pain 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 Nausea Left shoulder pain Pain of left scapula Left upper extremity numbness Left shoulder strain Obstructive Sleep Apnea-Hypopnea Syndrome Fatty liver Type 2 diabetes mellitus with microalbuminuria Type 2 diabetes mellitus without complication, with long-term current use of insulin History of stent into kidney Anxiety Acute cholecystitis Segmental and somatic dysfunction of cervical region Migraines Acute bronchitis Acute respiratory insufficiency Dyspnea History of obstructive sleep apnea Elevated triglycerides with high cholesterol Calculus of left kidney Nonalcoholic hepatosteatosis Hydroureter, left Hydronephrosis, left Acute kidney injury Pyelonephritis Nephrolithiasis Obesity Hypertension Type 2 diabetes mellitus Segmental and somatic dysfunction of lumbar region Vertigo Left upper quadrant abdominal pain Dysuria Urinary tract infection Segmental and somatic dysfunction of pelvic region Segmental and somatic dysfunction of thoracic region Lumbar facet arthropathy Lumbosacral spondylosis Radiculopathy of lumbosacral region Disc displacement, lumbar Degeneration of intervertebral disc of lumbosacral region Surgical History History of urethral stent ( 2019) Hx laparoscopic cholecystectomy ( 2006) H/O: ( 2006) Family History Father Diabetes Myocardial infarction Pancreatic cancer Mother Alcohol abuse Drug abuse Grandfather Diabetes Grandmother Lung cancer Grandmother Heart disease Triple bypass surgery Social History Smoking Status: Never smoker alcohol intake: never substance use type: does not use caffeine: Yes Type: coffee what type of physical activity do you participate in: walking frequency: daily seatbelt use: always do you feel safe at home: Yes HPI Back pain Chief Complaint: neck/low back pain Visit Number: 10 Details: Tori is a 44 y/o F here today to f/u with ongoing neck and low back pain. Pt advises she is experiencing some mild low back tightness/achiness bilaterally today, she rates her discomfort at a 3/10. 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 Pt also has c/o L shoulder/neck pain and stiffness. She states that her L shoulder is worse than her neck today, her L arm has been going numb intermittently during the past week. She just started a new job last week and she states that possibly the new movements are irritating her shoulder. She treats pain at home by using a TENS unit and alternates Tylenol and Aleve as needed. Pt. denies new injury.. Pt. reports chiropractic adjustments and E-stim are helpful in relieving her back pain and discomfort but it quickly returns. Onset: 06/04/23 Location: low back/neck Duration: frequent/occasional Aggravating or associated factors: ROM,work requirements Relieving factors: heat, ice, chiro Pain Quality: aching, dull and cramping Current Sensation: other (numbness) Exam Musc General: Yes normal posture, normal gait, joint tenderness and decreased range of motion Cervical Spine: Yes loss of normal cervical lordosis (mild anterior head carriage), Yes cervical muscular tenderness left greater than right lower , Yes cervical spasm right greater than left lower trapezius and paracervical muscles and Yes misalignment misalignment: C5, C6 and C7 Thoracic/Lumber: No thoracic and lumbar spine normal to inspection (decreased lordosis, edema at C/T junction), Yes paraspinal tenderness on the right greater than left (trap) and on the left greater than right (lumbopelvic), Yes thoraco-lumbar spasm on the right greater than left (trap, glute) and on the left greater than right (paraspinal(lumbar) ) and Yes misalignment T1, T2, T3, T4, L3, L4, L5 a (more content not included)... Normal [facility] Chiropractic Reporton 2023 Chiropractic Report [facility] [address] [place] [address] OFFICE VISIT Date of Service: 08/13/24 MR#: [id number] Acct: [id number] Name: TORI GRAY Rep #: [id number] : 1980 Provider: CONCEPCIÓN Montgomery Age/Sex: 44/F Location[place] [facility] [place] Status: Signed Intake Vital Signs 03/09/24 14:53 Height 5 ft 7 in Intake Visit Reasons: Back pain Chief Complaint: low Back pain Is patient in pain?: Yes (low back ) Pain scale (1-10): 10 Allergies Corticosteroids (Glucocorticoids) (steroids) Allergy (Verified 08/13/24 10:00) Hives lidocaine Adverse Reaction (Intermediate, Verified 08/13/24 10:00) Hives Medications ???Medication ???Instructions ???Recorded ???Confirmed ???Type blood sugar diagnostic (Blood #10 ea 04/26/20 08/13/24 History Glucose Test strips) ipratropium bromide 21 mcg (0.03 2 spray intranasal BID allergies 08/23/20 08/13/24 History %) nasal spray omega-3 fatty acids 1,000 mg 1,000 mg PO DAILY supplement 02/21/21 08/13/24 History capsule (Fish Oil Concentrate) albuterol sulfate 90 mcg/actuation 2 puff inhalation Q4H PRN 08/10/22 08/13/24 History aerosol inhaler shortness of breath or wheezing dulaglutide 0.75 mg/0.5 mL 0.75 mg subcut QWEEK diabetes 08/10/22 08/13/24 History subcutaneous pen injector (Trulicity) fexofenadine 180 mg tablet 180 mg PO DAILY allergies 08/10/22 08/13/24 History (Allergy Relief (fexofenadine)) levonorgestrel 17.5 mcg/24 hr (up 1 device intrauterine ONCE 08/10/22 08/13/24 History to 5 yrs) 19.5mg intrauterine control device tizanidine 4 mg tablet 4 mg PO Q8H PRN Muscle Spasm 08/10/22 08/13/24 History omeprazole 20 mg capsule,delayed 20 mg PO DAILY PRN gerd 08/16/22 08/13/24 History release topiramate 100 mg tablet 100 mg PO BID seizures 08/16/22 08/13/24 History fluoxetine 20 mg capsule 20 mg PO DAILY mental health 12/28/22 08/13/24 History gabapentin 300 mg capsule 300 mg PO BID nerve pain 12/28/22 08/13/24 History lisinopril 10 mg tablet 10 mg PO DAILY blood pressure 12/28/22 08/13/24 History ondansetron HCl 4 mg tablet 4 mg PO Q8H PRN nausea 12/28/22 08/13/24 History rimegepant 75 mg disintegrating 75 mg PO DAILY PRN migraine 02/04/24 08/13/24 History tablet (Nurtec ODT) headache PFSH Medical History Abnormal ECG Prolonged Q-T interval on ECG Microalbuminuria LETITIA (obstructive sleep apnea) Back pain 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 Nausea Left shoulder pain Pain of left scapula Left upper extremity numbness Left shoulder strain Obstructive Sleep Apnea-Hypopnea Syndrome Fatty liver Type 2 diabetes mellitus with microalbuminuria Type 2 diabetes mellitus without complication, with long-term current use of insulin History of stent into kidney Anxiety Acute cholecystitis Segmental and somatic dysfunction of cervical region Migraines Acute bronchitis Acute respiratory insufficiency Dyspnea History of obstructive sleep apnea Elevated triglycerides with high cholesterol Calculus of left kidney Nonalcoholic hepatosteatosis Hydroureter, left Hydronephrosis, left Acute kidney injury Pyelonephritis Nephrolithiasis Obesity Hypertension Type 2 diabetes mellitus Segmental and somatic dysfunction of lumbar region Vertigo Left upper quadrant abdominal pain Dysuria Urinary tract infection Segmental and somatic dysfunction of pelvic region Segmental and somatic dysfunction of thoracic region Lumbar facet arthropathy Lumbosacral spondylosis Radiculopathy of lumbosacral region Disc displacement, lumbar Degeneration of intervertebral disc of lumbosacral region Surgical History History of urethral stent ( 2019) Hx laparoscopic cholecystectomy ( 2005) H/O: ( 2006) Family History Father Diabetes Myocardial infarction Pancreatic cancer Mother Alcohol abuse Drug abuse Grandfather Diabetes Grandmother Lung cancer Grandmother Heart disease Triple bypass surgery Social History Smoking Status: Never smoker alcohol intake: never substance use type: does not use caffeine: Yes Type: coffee what type of physical activity do you participate in: walking frequency: daily seatbelt use: always do you feel safe at home: Yes HPI Back pain Chief Complaint: neck/low back pain Visit Number: 9 Details: Tori is a 44 y/o F here today to f/u with ongoing neck and low back pain. Pt advises she is experiencing some mild neck tightness today. She states her low back is painful today particularly on the left side. She c/o radiculopathy into her L glute and thig (more content not included)... [facility] 08-11-2024 [facility] Telephone ([facility]) ---- TORI GRAY ([id number]) 1980 F Date Time Provider Department 08/11/24 FATUMA BECKFORD [facility] During your visit today, we recorded the following information about you: Steph Nieto 08/11/2024 3:34 PM Signed [place] appt on 09/10 moved to 3 PM. 1st attempt to notify pt, sent message. Steph Nieto 08/11/2024 3:58 PM Signed Pt read message. Allergies As of Date: 08/11/2024 Noted Allergy Reaction FARXIGA (DAPAGLIFLOZIN) 08/05/2024 8 - GI Upset LIDOCAINE 12/24/2019 4 - Hives METFORMIN 08/05/2024 8 - GI Upset STEROIDS (BETAMETHASONE DIPROPION* 2 4 - Hives Date Reviewed: 08/05/2024 Reviewed by: Nirmala Storey LPN - Fully Assessed Reason for Visit: Appointment [186] Prescriptions as of 08/11/2024 - semaglutide (OZEMPIC) 0.25 mg or 0.5 mg (2 mg/3 mL) pen Inject 0.25 mg subcutaneously one time a week. - FLUoxetine (PROZAC) 20 mg capsule Take 1 capsule by mouth once daily. - topiramate (TOPAMAX) 100 mg tablet Take 1 tablet by mouth two times a day. - gabapentin (NEURONTIN) 300 mg capsule Take 1 capsule by mouth two times a day for 180 days. - lisinopril (ZESTRIL) 10 mg tablet Take 1 tablet by mouth once daily. - rimegepant (NURTEC ODT) 75 mg disintegrating tablet Take 1 tablet by mouth once daily as needed. - naratriptan (AMERGE) 2.5 mg tablet Take 1 tablet (2.5 mg) by mouth as directed. at the onset of headache; if headache returns or does not fully resolve, the dose may be repeated after 4 hours; do not exceed five(5) mg in 24 hours. NO more than 10 doses a month. - albuterol HFA (VENTOLIN HFA) 90 mcg/actuation inhaler Inhale 2 Puffs as instructed every 4 hours as needed for wheezing/shortness of breath. - fexofenadine (ALMA ALLERGY) 180 mg tablet Take 1 tablet by mouth once daily. - albuterol HFA (VENTOLIN HFA) 90 mcg/actuation inhaler Inhale 2 Puffs as instructed every 4 hours as needed for wheezing/shortness of breath. - Ipratropium [place] (ATROVENT) 21 mcg (0.03 %) nasal spray Use 2 Sprays in the nose every 12 hours. - omeprazole (PRILOSEC) 20 mg capsule Take 1 capsule by mouth daily before breakfast. 1/2 hr before meal. - MAGNESIUM ORAL Take by mouth. - meclizine (ANTIVERT) 25 mg tab Take 25 mg by mouth once daily. Takes two tabs in am - BIPAP - levonorgestrel (KYLEENA) 17.5 mcg/24 hrs (5 yrs) 19.5 mg IUD 1 Each by INTRAUTERINE route as directed. - Herrick-3 Fatty Acids (FISH OIL) 500 mg cap Take 1 capsule by mouth once daily. - blood sugar diagnostic (BLOOD GLUCOSE TEST) test strip Test blood sugar(s) 1 times daily. Dx: Type 2 DM - Controlled E11.9 Insulin: Yes - Lancets lancets Test blood sugar(s) 1 times daily. Dx: Type 2 DM - Controlled E11.9 Insulin: No - Qhhfyjbb-Fe-Wip-Fe- FA tab Take 1 tablet by mouth once daily. Meds Comments as of 03/01/2019: Percocet March 01, 2019 Stephanie Suresh RN Problem List As Of Date 08/11/2024 Noted Resolved SUPERVIS NORMAL 1ST PREG [Z34.00] 11/09/2005 07/02/2006 TRANS HYPERTEN-ANTEPART [O13.9] 06/19/2006 07/02/2006 KERATOSIS PILARIS////SKIN ANOMALY NEC [Q82.8] 03/26/2007 01/23/2010 Other Acne [L70.8] 03/26/2007 FOLLICULITIS///HAIR DISEASES NEC [L67.8, L73.8] 03/26/2007 01/23/2010 Lichenification and Lichen Simplex Chronicus [L*03/26/2007 01/23/2010 DERMATOFIBROMA///BE NIGN KAILEY SKIN ARM [D23.60] 03/26/2007 01/23/2010 Contact Dermatitis and Other Eczema, due to Uns*03/26/2007 01/23/2010 SACROILIITIS [M46.1] 05/06/2009 01/23/2010 [facility] at [facility]*01/23/2010 12/06/2012 Class: Chronic Routine gynecological examination [Z01.419] 01/23/2010 02/22/2014 Class: Chronic Morbid Obesity [E66.01] 01/23/2010 Lumbar Disc Disorder [M51.9] 02/16/2010 Routine general medical examination at [facility]*12/06/2012 02/22/2014 Anxiety [F41.9] 06/07/2014 Type 2 diabetes mellitus with microalbuminuria,*0 07/04/2018 Fatty liver [K76.0] 07/21/2018 08/05/2024 LETITIA (obstructive sleep apnea) [G47.33] 07/21/2018 Microalbuminuria [R80.9] 09/30/2018 09/04/2022 Obesity, Class III, BMI >= 40 [E66.01] 11/26/2019 09/04/2022 Prolonged Q-T interval on ECG [R94.31] 03/31/2020 Calculus of kidney [N20.0] 09/04/2022 Chest pain [R07.9] 09/04/2022 09/04/2022 Contusion of knee [S80.00XA] 09/04/2022 09/04/2022 Essential (primary) hypertension [I10] 08/16/2022 Fall [W19.XXXA] 09/04/2022 09/04/2022 Headache [R51] 09/04/2022 09/04/2022 Herniation of lumbar intervertebral disc with r*06/10/2017 History of type 2 diabetes mellitus [Z86.39] 09/04/2022 09/04/2022 Low back pain, unspecified [M54.50] 04/17/2022 09/04/2022 Migraine headache [G43.909] 09/04/2022 Muscle pain [M79.10] 09/04/2022 09/04/2022 Nausea, vomiting, and diarrhea [R11.2, R19.7] 11/22/2021 09/04/2022 Numbness of upper extremity [R20.0] 10/10/2021 09/04/2022 Pain of left scapula [M89.8X1] 09/04/2022 11 (more content not included)... Normal [facility] CNOVon 08-05-2024 CNOV Office Visit (FAMPWS) ---- TORI GRAY ([id number]) 1980 F Date Time Provider Department 08/05/24 8:00 AM IVETTE GRIMES During your visit today, we recorded the following information about you: Pulse Blood pressure Weight 56/minute 114/62 131.5 kg Ivette Grimes MD 08/05/2024 8:33 AM Signed Patient presents with: Physical HPI: Patient presents today for office visit for physical. Overall doing well. Has had a cough since early June. Was ill when it started. Had xray on 07/22 and doxycycline. She wonders if it is allergies. Is on lisinopril but started with illness. No wheezing. Is annoying and does not feel ill. Has a lot allergy issues. Farxiga is upsetting her stomach. Compares to when she took metformin. Glucose is good though. Initially did ok with trulicity but then had gi upset. Wants to try another. 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 Excited for this because will not be as physical. Reviewed labs recently done at [facility]. A1c was 6.7. ldl was 105. Hdl 35 The 10-year ASCVD risk score (Tom MANZO, et al., 2019) is: 2.9%* Values used to calculate the score: Age: 44 years Sex: Female Is Non- : No Diabetic: Yes Tobacco smoker: No Systolic Blood Pressure: 114 mmHg Is BP treated: Yes HDL Cholesterol: 35 mg/dL* Total Cholesterol: 195 mg/dL* * - Cholesterol units were assumed for this score calculation Current Outpatient Medications Medication Sig FLUoxetine (PROZAC) 20 mg capsule Take 1 capsule by mouth once daily. dapagliflozin propanediol (FARXIGA) 5 mg tablet Take 1 tablet by mouth once daily. Take one daily in the morning topiramate (TOPAMAX) 100 mg tablet Take 1 tablet by mouth two times a day. gabapentin (NEURONTIN) 300 mg capsule Take 1 capsule by mouth two times a day for 180 days. lisinopril (ZESTRIL) 10 mg tablet Take 1 tablet by mouth once daily. rimegepant (NURTEC ODT) 75 mg disintegrating tablet Take 1 tablet by mouth once daily as needed. naratriptan (AMERGE) 2.5 mg tablet Take 1 tablet (2.5 mg) by mouth as directed. at the onset of headache; if headache returns or does not fully resolve, the dose may be repeated after 4 hours; do not exceed five(5) mg in 24 hours. NO more than 10 doses a month. albuterol HFA (VENTOLIN HFA) 90 mcg/actuation inhaler Inhale 2 Puffs as instructed every 4 hours as needed for wheezing/shortness of breath. fexofenadine (ALMA ALLERGY) 180 mg tablet Take 1 tablet by mouth once daily. albuterol HFA (VENTOLIN HFA) 90 mcg/actuation inhaler Inhale 2 Puffs as instructed every 4 hours as needed for wheezing/shortness of breath. Ipratropium [place] (ATROVENT) 21 mcg (0.03 %) nasal spray Use 2 Sprays in the nose every 12 hours. omeprazole (PRILOSEC) 20 mg capsule Take 1 capsule by mouth daily before breakfast. 1/2 hr before meal. MAGNESIUM ORAL Take by mouth. meclizine (ANTIVERT) 25 mg tab Take 25 mg by mouth once daily. Takes two tabs in am BIPAP levonorgestrel (KYLEENA) 17.5 mcg/24 hrs (5 yrs) 19.5 mg IUD 1 Each by INTRAUTERINE route as directed. Herrick-3 Fatty Acids (FISH OIL) 500 mg cap Take 1 capsule by mouth once daily. blood sugar diagnostic (BLOOD GLUCOSE TEST) test strip Test blood sugar(s) 1 times daily. Dx: Type 2 DM - Controlled E11.9 Insulin: Yes Lancets lancets Test blood sugar(s) 1 times daily. Dx: Type 2 DM - Controlled E11.9 Insulin: No Cmifouwd-Wb-Eln-Fe- FA tab Take 1 tablet by mouth once daily. No current facility-administer ed medications for this visit. ALLERGIES: ALLERGIES Allergen Reactions Lidocaine Hives Steroids [Betametha* Hives PAST MEDICAL HISTORY Diagnosis Date Acute cholecystitis Cholecystitis Anxiety 06/07/2014 Chronic back pain Kidney stones LETITIA treated with BiPAP Type 2 diabetes mellitus (HCC) PAST SURGICAL HISTORY Procedure Laterality Date DELIVERY ONLY 2006 , low cervical INSERT INTRAUTERINE DEVICE 10/19/08 mirena LAPAROSCOPY SURG CHOLECYSTECTOMY 2006 Cholecystectomy, lap (Rowena Monet) PAST SURGICAL HISTORY OF 2019 stent into kidney REMOVE IUD 07/13/2010 FAMILY HISTORY Problem Relation Age of Onset Alcohol/Drug Mother Heart Father [place] Cancer Father PANCREATIC CANCER Diabetes Father Coronary Artery Disease Father Anxiety disorder Sister Depression Sister Depression Brother Cancer Maternal Grandmother LUNG CANCER Diabetes Maternal Grandfather Heart Paternal Grandmother TRIPLE BYPASS SURGERY Social History Tobacco Use Smoking status: Never Smokeless tobacco: Never Vaping Use Vaping status: Never Used Substance Use Topics Alcohol use: No Drug use: No Reviewed current medications, allergies, past medical history, surgical h (more content not included)... Normal [facility] TORI GRAY ([id number]) 1980 F Date Time Provider Department 08/05/[address] [facility] During your visit today, we recorded the following information about you: Dennise Robles MA 08/06/2024 10:44 AM Signed APPROVAL. [facility] # [id number] VALIDITY DATES 08/06/24-08/05/25 Pharmacy informed. Dennise Robles MA Allergies As of Date: 08/05/2024 Noted Allergy Reaction FARXIGA (DAPAGLIFLOZIN) 08/05/2024 8 - GI Upset LIDOCAINE 12/24/2019 4 - Hives METFORMIN 08/05/2024 8 - GI Upset STEROIDS (BETAMETHASONE DIPROPION* 2 4 - Hives Date Reviewed: 08/05/2024 Reviewed by: Nirmala Storey LPN - Fully Assessed Reason for Visit: Insurance Authorization [[id number]] Cmt: Ozempic Prescriptions as of 08/06/2024 - semaglutide (OZEMPIC) 0.25 mg or 0.5 mg (2 mg/3 mL) pen Inject 0.25 mg subcutaneously one time a week. - FLUoxetine (PROZAC) 20 mg capsule Take 1 capsule by mouth once daily. - topiramate (TOPAMAX) 100 mg tablet Take 1 tablet by mouth two times a day. - gabapentin (NEURONTIN) 300 mg capsule Take 1 capsule by mouth two times a day for 180 days. - lisinopril (ZESTRIL) 10 mg tablet Take 1 tablet by mouth once daily. - rimegepant (NURTEC ODT) 75 mg disintegrating tablet Take 1 tablet by mouth once daily as needed. - naratriptan (AMERGE) 2.5 mg tablet Take 1 tablet (2.5 mg) by mouth as directed. at the onset of headache; if headache returns or does not fully resolve, the dose may be repeated after 4 hours; do not exceed five(5) mg in 24 hours. NO more than 10 doses a month. - albuterol HFA (VENTOLIN HFA) 90 mcg/actuation inhaler Inhale 2 Puffs as instructed every 4 hours as needed for wheezing/shortness of breath. - fexofenadine (ALMA ALLERGY) 180 mg tablet Take 1 tablet by mouth once daily. - albuterol HFA (VENTOLIN HFA) 90 mcg/actuation inhaler Inhale 2 Puffs as instructed every 4 hours as needed for wheezing/shortness of breath. - Ipratropium [place] (ATROVENT) 21 mcg (0.03 %) nasal spray Use 2 Sprays in the nose every 12 hours. - omeprazole (PRILOSEC) 20 mg capsule Take 1 capsule by mouth daily before breakfast. 1/2 hr before meal. - MAGNESIUM ORAL Take by mouth. - meclizine (ANTIVERT) 25 mg tab Take 25 mg by mouth once daily. Takes two tabs in am - BIPAP - levonorgestrel (KYLEENA) 17.5 mcg/24 hrs (5 yrs) 19.5 mg IUD 1 Each by INTRAUTERINE route as directed. - Herrick-3 Fatty Acids (FISH OIL) 500 mg cap Take 1 capsule by mouth once daily. - blood sugar diagnostic (BLOOD GLUCOSE TEST) test strip Test blood sugar(s) 1 times daily. Dx: Type 2 DM - Controlled E11.9 Insulin: Yes - Lancets lancets Test blood sugar(s) 1 times daily. Dx: Type 2 DM - Controlled E11.9 Insulin: No - Kybvfkpf-Qy-Buo-Fe- FA tab Take 1 tablet by mouth once daily. Meds Comments as of 03/01/2019: Percocet March 01, 2019 Stephanie Suresh RN Problem List As Of Date 08/05/2024 Noted Resolved SUPERVIS NORMAL 1ST PREG [Z34.00] 11/09/2005 07/02/2006 TRANS HYPERTEN-ANTEPART [O13.9] 06/19/2006 07/02/2006 KERATOSIS PILARIS////SKIN ANOMALY NEC [Q82.8] 03/26/2007 01/23/2010 Other Acne [L70.8] 03/26/2007 FOLLICULITIS///HAIR DISEASES NEC [L67.8, L73.8] 03/26/2007 01/23/2010 Lichenification and Lichen Simplex Chronicus [L*03/26/2007 01/23/2010 DERMATOFIBROMA///BE NIGN KAILEY SKIN ARM [D23.60] 03/26/2007 01/23/2010 Contact Dermatitis and Other Eczema, due to Uns*03/26/2007 01/23/2010 SACROILIITIS [M46.1] 05/06/2009 01/23/2010 Routine general medical examination at [facility]*01/23/2010 12/06/2012 Class: Chronic Routine gynecological examination [Z01.419] 01/23/2010 02/22/2014 Class: Chronic Morbid Obesity [E66.01] 01/23/2010 Lumbar Disc Disorder [M51.9] 02/16/2010 Routine general medical examination at [facility]*12/06/2012 02/22/2014 Anxiety [F41.9] 06/07/2014 Type 2 diabetes mellitus with microalbuminuria,*0 07/04/2018 Fatty liver [K76.0] 07/21/2018 08/05/2024 LETITIA (obstructive sleep apnea) [G47.33] 07/21/2018 Microalbuminuria [R80.9] 09/30/2018 09/04/2022 Obesity, Class III, BMI >= 40 [E66.01] 11/26/2019 09/04/2022 Prolonged Q-T interval on ECG [R94.31] 03/31/2020 Calculus of kidney [N20.0] 09/04/2022 Chest pain [R07.9] 09/04/2022 09/04/2022 Contusion of knee [S80.00XA] 09/04/2022 09/04/2022 Essential (primary) hypertension [I10] 08/16/2022 Fall [W19.XXXA] 09/04/2022 09/04/2022 Headache [R51] 09/04/2022 09/04/2022 Herniation of lumbar intervertebral disc with r*06/10/2017 History of type 2 diabetes mellitus [Z86.39] 09/04/2022 09/04/2022 Low back pain, unspecified [M54.50] 04/17/2022 09/04/2022 Migraine headache [G43.909] 09/04/2022 Muscle pain [M79.10] 09/04/2022 09/04/2022 Nausea, vomiting, and diarrhea [R11.2, R19.7] 11/22/2021 09/04/2022 Numbness of upper extremity [R20.0] 10/10/2021 09/04/2022 Pain of left scapula [M89.8X1] 09/04/2022 11 (more content not included)... Normal [facility] Chiropractic Reporton 2023 Chiropractic Report [facility] [address] [place] [address] OFFICE VISIT Date of Service: 07/30/24 MR#: [id number] Acct: [id number] Name: TORI GRAY Rep #: [id number] : 1980 Provider: CONCEPCIÓN Montgomery Age/Sex: 44/F Location: [facility] Status: Signed Intake Vital Signs 03/09/24 14:53 Height 5 ft 7 in Intake Visit Reasons: Back pain Chief Complaint: low Back pain Is patient in pain?: Yes Pain scale (1-10): 8 Allergies Corticosteroids (Glucocorticoids) (steroids) Allergy (Verified 07/30/24 10:58) Hives lidocaine Adverse Reaction (Intermediate, Verified 07/30/24 10:58) Hives PFSH Medical History Abnormal ECG Prolonged Q-T interval on ECG Microalbuminuria LETITIA (obstructive sleep apnea) Back pain 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 Nausea Left shoulder pain Pain of left scapula Left upper extremity numbness Left shoulder strain Obstructive Sleep Apnea-Hypopnea Syndrome Fatty liver Type 2 diabetes mellitus with microalbuminuria Type 2 diabetes mellitus without complication, with long-term current use of insulin History of stent into kidney Anxiety Acute cholecystitis Segmental and somatic dysfunction of cervical region Migraines Acute bronchitis Acute respiratory insufficiency Dyspnea History of obstructive sleep apnea Elevated triglycerides with high cholesterol Calculus of left kidney Nonalcoholic hepatosteatosis Hydroureter, left Hydronephrosis, left Acute kidney injury Pyelonephritis Nephrolithiasis Obesity Hypertension Type 2 diabetes mellitus Segmental and somatic dysfunction of lumbar region Vertigo Left upper quadrant abdominal pain Dysuria Urinary tract infection Segmental and somatic dysfunction of pelvic region Segmental and somatic dysfunction of thoracic region Lumbar facet arthropathy Lumbosacral spondylosis Radiculopathy of lumbosacral region Disc displacement, lumbar Degeneration of intervertebral disc of lumbosacral region Surgical History History of urethral stent ( 2018) Hx laparoscopic cholecystectomy ( 2005) H/O: ( 2005) Family History Father Diabetes Myocardial infarction Pancreatic cancer Mother Alcohol abuse Drug abuse Grandfather Diabetes Grandmother Lung cancer Grandmother Heart disease Triple bypass surgery Social History Smoking Status: Never smoker alcohol intake: never substance use type: does not use caffeine: Yes Type: coffee what type of physical activity do you participate in: walking frequency: daily seatbelt use: always do you feel safe at home: Yes HPI Back pain Chief Complaint: neck/low back pain Visit Number: 8 Details: Tori is a 44 y/o F here today to f/u for ongoing neck and low back pain. Pt states that her L neck is very sore and tight today. She is having radiculopathy down her L arm and some tingling and numbness in her fingers. Rates her neck pain at a 5/10 today. Her L low back is extremely tight and painful today. She c/o radiculopathy down her L leg into her foot. She rates her back pain at a 10/10 today. She has been working both her jobs the past couple days so this has exacerbated her pain. She treats pain at home by using a TENS unit and alternates Tylenol and Aleve as needed. Pt. denies new injury. Pt. reports chiropractic adjustments are helpful in relieving her back pain and discomfort but it quickly returns. Onset: 06/04/23 Location: low back/neck Duration: frequent/occasional Aggravating or associated factors: ROM,work requirements Relieving factors: heat, ice, chiro Pain Quality: aching, dull and cramping Exam Musc General: Yes normal posture, normal gait, joint tenderness and decreased range of motion Cervical Spine: Yes loss of normal cervical lordosis (mild anterior head carriage), Yes cervical muscular tenderness (mild) left greater than right diffuse , Yes cervical spasm right greater than left lower trapezius and paracervical muscles and Yes misalignment misalignment: C5, C6 and C7 Thoracic/Lumber: No thoracic and lumbar spine normal to inspection (decreased lordosis, edema at C/T junction), Yes paraspinal tenderness on the right greater than left (trap) and on the left greater than right (lumbopelvic), Yes thoraco-lumbar spasm on the right greater than left (trap, glute) and on the left greater than right (paraspinal(lumbar) ) and Yes misalignment T1, T2, T3, T4, L3, L4, L5 and LIL Sacroiliac joints: on the left tender to palpation Office Procedures Procedures - Chiropractic Procedures Manipulation: Cervical C5, Lumbar L4, Thoracic (more content not included)... Normal [facility] Chest PA and Lateralon 07-22 Chest PA and Lateral [facility] [address] [place] [address] Chest PA and Lateral MR#: [id number] Acct: [id number] Name: TORI GRAY Rep #: [id number] : 1980 F 44 From: Gregorio barry MD PCP: Dr. Ivette Grimes MD Status: REG [facility] Study: Chest PA and Lateral Date of Exam: 07/22/24 Exam# [id number] Ordering Dr: Ivette Grimes MD -[id number] STUDY: X-RAY CHEST REASON FOR EXAM: Female, 44 years old. COUGH TECHNIQUE: Frontal and lateral views of the chest. COMPARISON: 02/04/2024. FINDINGS: The lungs are clear and expanded. There is no demonstrated pleural abnormality. Normal size heart. Normal mediastinum and osman. Normal visualized pulmonary arteries. Normal visualized aortic arch and descending thoracic aorta. Normal visualized thoracic spine. Normal visualized ribs, clavicles, and shoulders. There is no demonstrated abnormality of the visualized soft tissue structures of the upper abdomen. RAD/Chest PA and Lateral IMPRESSION: Normal x-ray examination of the chest. Electronically Signed: Gregorio Last MD at 22:28 EDT , CC: Dr. 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 Patient states that Dr. Grimes had told her that if cough had not improved that provider wanted to order her a chest xray. Please review and advise, PEPE Marx, Ivette James MD 07/21/2024 2:18 PM Signed ordered Ingrid Salmon MA 07/21/2024 3:03 PM Signed Pt notified. Requested to have order faxed to [facility]. Order faxed. Ingrid Salmon MA Allergies As of Date: 07/21/2024 Noted Allergy Reaction LIDOCAINE 12/24/2019 4 - Hives STEROIDS (BETAMETHASONE DIPROPION* 4 - Hives Date Reviewed: 07/03/2024 Reviewed by: Nirmala Storey LPN - Fully Assessed Reason for Visit: Orders [681] Primary Visit Diagnosis:Cough, unspecified type [R05.9] Order(s):XR CHEST 2V FRONTAL/LAT [[id number]] Order #: [id number] FUTURE Prescriptions as of 07/21/2024 - dapagliflozin propanediol (FARXIGA) 5 mg tablet Take 1 tablet by mouth once daily. Take one daily in the morning - tiZANidine (ZANAFLEX) 4 mg tablet Take 1 tablet by mouth every 8 hours as needed. - topiramate (TOPAMAX) 100 mg tablet Take 1 tablet by mouth two times a day. - gabapentin (NEURONTIN) 300 mg capsule Take 1 capsule by mouth two times a day for 180 days. - FLUoxetine (PROZAC) 20 mg capsule Take 1 capsule by mouth once daily. - lisinopril (ZESTRIL) 10 mg tablet Take 1 tablet by mouth once daily. - rimegepant (NURTEC ODT) 75 mg disintegrating tablet Take 1 tablet by mouth once daily as needed. - naratriptan (AMERGE) 2.5 mg tablet Take 1 tablet (2.5 mg) by mouth as directed. at the onset of headache; if headache returns or does not fully resolve, the dose may be repeated after 4 hours; do not exceed five(5) mg in 24 hours. NO more than 10 doses a month. - albuterol HFA (VENTOLIN HFA) 90 mcg/actuation inhaler Inhale 2 Puffs as instructed every 4 hours as needed for wheezing/shortness of breath. - fexofenadine (ALMA ALLERGY) 180 mg tablet Take 1 tablet by mouth once daily. - albuterol HFA (VENTOLIN HFA) 90 mcg/actuation inhaler Inhale 2 Puffs as instructed every 4 hours as needed for wheezing/shortness of breath. - Ipratropium [place] (ATROVENT) 21 mcg (0.03 %) nasal spray Use 2 Sprays in the nose every 12 hours. - omeprazole (PRILOSEC) 20 mg capsule Take 1 capsule by mouth daily before breakfast. 1/2 hr before meal. - MAGNESIUM ORAL Take by mouth. - meclizine (ANTIVERT) 25 mg tab Take 25 mg by mouth once daily. Takes two tabs in am - BIPAP - levonorgestrel (KYLEENA) 17.5 mcg/24 hrs (5 yrs) 19.5 mg IUD 1 Each by INTRAUTERINE route as directed. - Herrick-3 Fatty Acids (FISH OIL) 500 mg cap Take 1 capsule by mouth once daily. - blood sugar diagnostic (BLOOD GLUCOSE TEST) test strip Test blood sugar(s) 1 times daily. Dx: Type 2 DM - Controlled E11.9 Insulin: Yes - Lancets lancets Test blood sugar(s) 1 times daily. Dx: Type 2 DM - Controlled E11.9 Insulin: No - Lkqzqmmy-Zf-Nwy-Fe- FA tab Take 1 tablet by mouth once daily. Meds Comments as of 03/01/2019: Percocet March 01, 2019 Stephanie Suresh RN Problem List As Of Date 07/21/2024 Noted Resolved SUPERVIS NORMAL 1ST PREG [Z34.00] 11/09/2005 07/02/2006 TRANS HYPERTEN-ANTEPART [O13.9] 06/19/2006 07/02/2006 KERATOSIS PILARIS////SKIN ANOMALY NEC [Q82.8] 03/26/2007 01/23/2010 Other Acne [L70.8] 03/26/2007 FOLLICULITIS///HAIR DISEASES NEC [L67.8, L73.8] 03/26/2007 01/23/2010 Lichenification and Lichen Simplex Chronicus [L*03/26/2007 01/23/2010 DERMATOFIBROMA///BE NIGN KAILEY SKIN ARM [D23.60] 03/26/2007 01/23/2010 Contact Dermatitis and Other Eczema, due to Uns*03/26/2007 01/23/2010 SACROILIITIS [M46.1] 05/06/2009 01/23/2010 [facility]*01/23/2010 12/06/2012 Class: Chronic Routine gynecological examination [Z01.419] 01/23/2010 02/22/2014 Class: Chronic Morbid Obesity [E66.01] 01/23/2010 Lumbar Disc Disorder [M51.9] 02/16/2010 Routine general medical examination at a [facility]*12/06/2012 02/22/2014 Anxiety [F41.9] 06/07/2014 Type 2 diabetes mellitus with microalbuminuria,*0 07/04/2018 Fatty liver [K76.0] 07/21/2018 LETITIA (obstructive sleep apnea) [G47.33] 07/21/2018 Microalbuminuria [R80.9] 09/30/2018 09/04/2022 Obesity, Class III, BMI >= 40 [E66.01] 11/26/2019 09/04/2022 Prolonged Q-T interval on ECG [R94.31] 03/31/2020 Calculus of kidney [N20.0] 09/04/2022 Chest pain [R07.9] 09/04/2022 09/04/2022 Contusion of knee [S80.00XA] 09/04/2022 09/04/2022 Essential (primary) hypertension [I10] 08/16/2022 Fall [W19.XXXA] 09/04/2022 09/04/2022 Headache [R51] 09/04/2022 09/04/2022 Herniation of lumbar intervertebr (more content not included)... Normal [facility] Chiropractic Reporton 2023 Chiropractic Report [facility] [address] [place] [id number] OFFICE VISIT Date of Service: 07/16/24 MR#: [id number] Acct: [id number] Name: ISAACTORI ROBIN Rep #: [id number] : 1980 Provider: CONCEPCIÓN Montgomery Age/Sex: 44/F Location: [email or web address] Status: Signed Intake Vital Signs 03/09/24 14:53 Height 5 ft 7 in Intake Visit Reasons: Back pain Chief Complaint: low Back pain Is patient in pain?: Yes Pain scale (1-10): 5 Allergies Corticosteroids (Glucocorticoids) (steroids) Allergy (Verified 07/16/24 11:27) Hives lidocaine Adverse Reaction (Intermediate, Verified 07/16/24 11:27) [facility] History Abnormal ECG Prolonged Q-T interval on ECG Microalbuminuria LETITIA (obstructive sleep apnea) Back pain 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 Nausea Left shoulder pain Pain of left scapula Left upper extremity numbness Left shoulder strain Obstructive Sleep Apnea-Hypopnea Syndrome Fatty liver Type 2 diabetes mellitus with microalbuminuria Type 2 diabetes mellitus without complication, with long-term current use of insulin History of stent into kidney Anxiety Acute cholecystitis Segmental and somatic dysfunction of cervical region Migraines Acute bronchitis Acute respiratory insufficiency Dyspnea History of obstructive sleep apnea Elevated triglycerides with high cholesterol Calculus of left kidney Nonalcoholic hepatosteatosis Hydroureter, left Hydronephrosis, left Acute kidney injury Pyelonephritis Nephrolithiasis Obesity Hypertension Type 2 diabetes mellitus Segmental and somatic dysfunction of lumbar region Vertigo Left upper quadrant abdominal pain Dysuria Urinary tract infection Segmental and somatic dysfunction of pelvic region Segmental and somatic dysfunction of thoracic region Lumbar facet arthropathy Lumbosacral spondylosis Radiculopathy of lumbosacral region Disc displacement, lumbar Degeneration of intervertebral disc of lumbosacral region Surgical History History of urethral stent ( 2019) Hx laparoscopic cholecystectomy ( 2006) H/O: ( 2005) Family History Father Diabetes Myocardial infarction Pancreatic cancer Mother Alcohol abuse Drug abuse Grandfather Diabetes Grandmother Lung cancer Grandmother Heart disease Triple bypass surgery Social History Smoking Status: Never smoker alcohol intake: never substance use type: does not use caffeine: Yes Type: coffee what type of physical activity do you participate in: walking frequency: daily seatbelt use: always do you feel safe at home: Yes HPI Back pain Chief Complaint: neck/low back pain Visit Number: 7 Details: Tori is a 44 y/o F here today to f/u for ongoing low back pain. Pt. advises she is having some achiness/tightness in her low back especially the L side. Rates her pain at a 5/10 today. Her neck is more of a tightness that comes and goes depending on work activities. 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 She treats pain at home by using a TENS unit and alternates Tylenol and Aleve as needed. Pt. denies new injury, numbness or tingling. Pt. reports chiropractic adjustments are helpful in relieving her back pain and discomfort but it quickly returns. Onset: 06/04/23 Location: low back/neck Duration: frequent/occasional Aggravating or associated factors: ROM,work requirements Relieving factors: heat, ice, chiro Pain Quality: aching, dull and cramping Exam Musc General: Yes normal posture, normal gait, joint tenderness and decreased range of motion Cervical Spine: Yes loss of normal cervical lordosis (mild anterior head carriage), Yes cervical muscular tenderness (mild) right greater than left lower , Yes cervical spasm right greater than left lower trapezius and paracervical muscles and Yes misalignment misalignment: C5, C6 and C7 Thoracic/Lumber: No thoracic and lumbar spine normal to inspection (decreased lordosis, edema at C/T junction), Yes paraspinal tenderness on the right greater than left (trap) and on the left greater than right (lumbopelvic), Yes thoraco-lumbar spasm on the right greater than left (trap, glute) and on the left greater than right (paraspinal(lumbar) ) and Yes misalignment T1, T2, T3, T4, L3, L4, L5 and RIL Sacroiliac joints: on the right tender to palpation Office Procedures Procedures - Chiropractic Procedures Manipulation: Cervical C5, Lumbar L4, Thoracic T4 and Pelvis RIL Manipulation: 3-4 regions Traction, Mechanical: Yes Patient Response: posit (more content not included)... [facility] TORI GRAY ([id number]) 1980 F Date Time Provider Department 07/09/24 [facility] GRIMES [facility] During your visit today, we recorded the following information about you: Gale Bower RN 07/09/2024 4:37 PM Signed Patient calls and wanted provider to know that she has not been taking Trulicity since the beginning of June. Patient states that every time she takes medication it makes her stomach hurt too bad for a couple days after taking medication. Patient realizes that her fasting blood sugar as well as Hgb A1C were elevated with last labs done. Patient knows that her sugars are running high. Patient states that they have been running in 200s. Patient asking if there is any other medications that she can be taking? Please review and advise, PEPE Marx William J, MD 07/10/2024 11:11 AM Signed Rx sent for farxiga. Lets try this Call sugars in two weeks. Nirmala Storey LPN 07/10/2024 11:17 AM Signed Left detailed message for patient. Allergies As of Date: 07/09/2024 Noted Allergy Reaction LIDOCAINE 12/24/2019 4 - Hives STEROIDS (BETAMETHASONE DIPROPION* 2 4 - Hives Date Reviewed: 07/03/2024 Reviewed by: Nirmala Storey LPN - Fully Assessed Reason for Visit: Patient Question [6545] Primary Visit Diagnosis:Type 2 diabetes mellitus with microalbuminuria, with long-term current use of insulin ([facility]) [E11.29, R80.9, Z79.4] Order(s):dapagliflo zin propanediol (FARXIGA) 5 mg tabletTake 1 tablet by mouth once daily. Take one daily in the morningDisp: 30 tabletRfl: 0 Prescriptions as of 07/10/2024 - dapagliflozin propanediol (FARXIGA) 5 mg tablet Take 1 tablet by mouth once daily. Take one daily in the morning - doxycycline monohydrate 100 mg tablet Take 1 tablet by mouth two times a day for 10 days. - tiZANidine (ZANAFLEX) 4 mg tablet Take 1 tablet by mouth every 8 hours as needed. - topiramate (TOPAMAX) 100 mg tablet Take 1 tablet by mouth two times a day. - gabapentin (NEURONTIN) 300 mg capsule Take 1 capsule by mouth two times a day for 180 days. - FLUoxetine (PROZAC) 20 mg capsule Take 1 capsule by mouth once daily. - lisinopril (ZESTRIL) 10 mg tablet Take 1 tablet by mouth once daily. - rimegepant (NURTEC ODT) 75 mg disintegrating tablet Take 1 tablet by mouth once daily as needed. - naratriptan (AMERGE) 2.5 mg tablet Take 1 tablet (2.5 mg) by mouth as directed. at the onset of headache; if headache returns or does not fully resolve, the dose may be repeated after 4 hours; do not exceed five(5) mg in 24 hours. NO more than 10 doses a month. - albuterol HFA (VENTOLIN HFA) 90 mcg/actuation inhaler Inhale 2 Puffs as instructed every 4 hours as needed for wheezing/shortness of breath. - fexofenadine (ALMA ALLERGY) 180 mg tablet Take 1 tablet by mouth once daily. - albuterol HFA (VENTOLIN HFA) 90 mcg/actuation inhaler Inhale 2 Puffs as instructed every 4 hours as needed for wheezing/shortness of breath. - Ipratropium [place] (ATROVENT) 21 mcg (0.03 %) nasal spray Use 2 Sprays in the nose every 12 hours. - omeprazole (PRILOSEC) 20 mg capsule Take 1 capsule by mouth daily before breakfast. 1/2 hr before meal. - MAGNESIUM ORAL Take by mouth. - meclizine (ANTIVERT) 25 mg tab Take 25 mg by mouth once daily. Takes two tabs in am - BIPAP - levonorgestrel (KYLEENA) 17.5 mcg/24 hrs (5 yrs) 19.5 mg IUD 1 Each by INTRAUTERINE route as directed. - Herrick-3 Fatty Acids (FISH OIL) 500 mg cap Take 1 capsule by mouth once daily. - blood sugar diagnostic (BLOOD GLUCOSE TEST) test strip Test blood sugar(s) 1 times daily. Dx: Type 2 DM - Controlled E11.9 Insulin: Yes - Lancets lancets Test blood sugar(s) 1 times daily. Dx: Type 2 DM - Controlled E11.9 Insulin: No - Qoypbckc-Oc-Wwo-Fe- FA tab Take 1 tablet by mouth once daily. Meds Comments as of 03/01/2019: Percocet March 01, 2019 Stephanie Suresh RN Problem List As Of Date 07/09/2024 Noted Resolved SUPERVIS NORMAL 1ST PREG [Z34.00] 11/09/2005 07/02/2006 TRANS HYPERTEN-ANTEPART [O13.9] 06/19/2006 07/02/2006 KERATOSIS PILARIS////SKIN ANOMALY NEC [Q82.8] 03/26/2007 01/23/2010 Other Acne [L70.8] 03/26/2007 FOLLICULITIS///HAIR DISEASES NEC [L67.8, L73.8] 03/26/2007 01/23/2010 Lichenification and Lichen Simplex Chronicus [L*03/26/2007 01/23/2010 DERMATOFIBROMA///BE NIGN KAILEY SKIN ARM [D23.60] 03/26/2007 01/23/2010 Contact Dermatitis and Other Eczema, due to Uns*03/26/2007 01/23/2010 SACROILIITIS [M46.1] 05/06/2009 01/23/2010 [facility] at [facility]*01/23/2010 12/06/2012 Class: Chronic Routine gynecological examination [Z01.419] 01/23/2010 02/22/2014 Class: Chronic Morbid Obesity [E66.01] 01/23/2010 Lumbar Disc Disorder [M51.9] 02/16/2010 Routine general medical examination at [facility]*12/06/2012 02/22/2014 Anxiety [F41.9] 06/07/2014 Typ (more content not included)... [facility] TORI G[facility] ([id number]) 1980 F Date Time Provider Department 07/08/24 IVETTE GRIMES During your visit today, we recorded the following information about you: Dennise Robles MA 07/08/2024 1:15 PM Signed Labs in chart review. STEFFNAIE Mcdonald William J, MD 07/08/2024 2:03 PM Signed noted Allergies As of Date: 07/08/2024 Noted Allergy Reaction LIDOCAINE 12/24/2019 4 - Hives STEROIDS (BETAMETHASONE DIPROPION* 2 4 - Hives Date Reviewed: 07/03/2024 Reviewed by: Nirmala Storey LPN - Fully Assessed Reason for Visit: Results [95] Prescriptions as of 07/08/2024 - doxycycline monohydrate 100 mg tablet Take 1 tablet by mouth two times a day for 10 days. - tiZANidine (ZANAFLEX) 4 mg tablet Take 1 tablet by mouth every 8 hours as needed. - topiramate (TOPAMAX) 100 mg tablet Take 1 tablet by mouth two times a day. - gabapentin (NEURONTIN) 300 mg capsule Take 1 capsule by mouth two times a day for 180 days. - FLUoxetine (PROZAC) 20 mg capsule Take 1 capsule by mouth once daily. - lisinopril (ZESTRIL) 10 mg tablet Take 1 tablet by mouth once daily. - rimegepant (NURTEC ODT) 75 mg disintegrating tablet Take 1 tablet by mouth once daily as needed. - naratriptan (AMERGE) 2.5 mg tablet Take 1 tablet (2.5 mg) by mouth as directed. at the onset of headache; if headache returns or does not fully resolve, the dose may be repeated after 4 hours; do not exceed five(5) mg in 24 hours. NO more than 10 doses a month. - dulaglutide (TRULICITY) 0.75 mg/0.5 mL pen injector Inject 0.75 mg subcutaneously one time a week. Inject dose once per week. Discard Pen After - albuterol HFA (VENTOLIN HFA) 90 mcg/actuation inhaler Inhale 2 Puffs as instructed every 4 hours as needed for wheezing/shortness of breath. - fexofenadine (ALMA ALLERGY) 180 mg tablet Take 1 tablet by mouth once daily. - albuterol HFA (VENTOLIN HFA) 90 mcg/actuation inhaler Inhale 2 Puffs as instructed every 4 hours as needed for wheezing/shortness of breath. - Ipratropium [place] (ATROVENT) 21 mcg (0.03 %) nasal spray Use 2 Sprays in the nose every 12 hours. - omeprazole (PRILOSEC) 20 mg capsule Take 1 capsule by mouth daily before breakfast. 1/2 hr before meal. - MAGNESIUM ORAL Take by mouth. - meclizine (ANTIVERT) 25 mg tab Take 25 mg by mouth once daily. Takes two tabs in am - BIPAP - levonorgestrel (KYLEENA) 17.5 mcg/24 hrs (5 yrs) 19.5 mg IUD 1 Each by INTRAUTERINE route as directed. - Herrick-3 Fatty Acids (FISH OIL) 500 mg cap Take 1 capsule by mouth once daily. - blood sugar diagnostic (BLOOD GLUCOSE TEST) test strip Test blood sugar(s) 1 times daily. Dx: Type 2 DM - Controlled E11.9 Insulin: Yes - Lancets lancets Test blood sugar(s) 1 times daily. Dx: Type 2 DM - Controlled E11.9 Insulin: No - Fbczwwmb-Pc-Nzo-Fe- FA tab Take 1 tablet by mouth once daily. Meds Comments as of 03/01/2019: Percocet March 01, 2019 Stephanie Suresh RN Problem List As Of Date 07/08/2024 Noted Resolved SUPERVIS NORMAL 1ST PREG [Z34.00] 11/09/2005 07/02/2006 TRANS HYPERTEN-ANTEPART [O13.9] 06/19/2006 07/02/2006 KERATOSIS PILARIS////SKIN ANOMALY NEC [Q82.8] 03/26/2007 01/23/2010 Other Acne [L70.8] 03/26/2007 FOLLICULITIS///HAIR DISEASES NEC [L67.8, L73.8] 03/26/2007 01/23/2010 Lichenification and Lichen Simplex Chronicus [L*03/26/2007 01/23/2010 DERMATOFIBROMA///BE NIGN KAILEY SKIN ARM [D23.60] 03/26/2007 01/23/2010 Contact Dermatitis and Other Eczema, due to Uns*03/26/2007 01/23/2010 SACROILIITIS [M46.1] 05/06/2009 01/23/2010 [facility]*01/23/2010 12/06/2012 Class: Chronic Routine gynecological examination [Z01.419] 01/23/2010 02/22/2014 Class: Chronic Morbid Obesity [E66.01] 01/23/2010 Lumbar Disc Disorder [M51.9] 02/16/2010 Routine general medical [facility]*12/06/2012 02/22/2014 Anxiety [F41.9] 06/07/2014 Type 2 diabetes mellitus with microalbuminuria,*0 07/04/2018 Fatty liver [K76.0] 07/21/2018 LETITIA (obstructive sleep apnea) [G47.33] 07/21/2018 Microalbuminuria [R80.9] 09/30/2018 09/04/2022 Obesity, Class III, BMI >= 40 [E66.01] 11/26/2019 09/04/2022 Prolonged Q-T interval on ECG [R94.31] 03/31/2020 Calculus of kidney [N20.0] 09/04/2022 Chest pain [R07.9] 09/04/2022 09/04/2022 Contusion of knee [S80.00XA] 09/04/2022 09/04/2022 Essential (primary) hypertension [I10] 08/16/2022 Fall [W19.XXXA] 09/04/2022 09/04/2022 Headache [R51] 09/04/2022 09/04/2022 Herniation of lumbar intervertebral disc with r*06/10/2017 History of type 2 diabetes mellitus [Z86.39] 09/04/2022 09/04/2022 Low back pain, unspecified [M54.50] 04/17/2022 09/04/2022 Migraine headache [G43.909] 09/04/2022 Muscle pain [M79.10] 09/04/2022 09/04/2022 Nausea, vomiting, and diarrhea [R11.2, R19.7] 11/22/2021 09/04/2022 Numbness of upper extre (more content not included)... Normal [facility] HBA1C (OUTSIDE)on 07-08-2024 HbA1c (Bld) [Mass fraction] 6.7 % [facility] LIPID PANEL (OUTSIDE)on Cholesterol [Mass/Vol] 195 mg/dL [facility] Cholesterol in HDL [Mass/Vol] 35 mg/dL [facility] Cholesterol in LDL [Mass/Vol] 105 mg/dL [facility] LDL:HDL Ratio [facility] Non-HDL Cholesterol [facility] TC:HDL Ratio [facility] Triglyceride [Mass/Vol] 274 mg/dL [facility] VLDL Cholesterol 55 [facility] No Panel Informationon 07-08 [facility] CBC W/Diff, Automatedon 06-06 Absolute Lymph 2.74 X10 3/uL Normal 0.83-4.51 [facility] Comment on above: Performed By: #### L 500.4100, L100.0100, L500.4050, L501.9985, L502.0250 #### [facility] [address] [place], [address] Absolute Neut 4.8 X10 3/uL Normal 2.0-7.7 [facility] Comment on above: Performed By: #### L 500.4100, L100.0100, L500.4050, L501.9985, L502.0250 #### [facility] [address] [place], [address] Basophils/100 WBC (Bld) 0.8 % Normal 0-1 [facility] Comment on above: Performed By: #### L 500.4100, L100.0100, L500.4050, L501.9985, L502.0250 #### [facility] [address] [place], [address] Eosinophils/100 WBC (Bld) 2.6 % Normal 0-5 [facility] Comment on above: Performed By: #### L 500.4100, L100.0100, L500.4050, L501.9985, L502.0250 #### [facility] [address] [place], [address] Erythrocyte distribution width (RBC) [Ratio] 14.0 % Normal 11.6-14.6 [facility] Comment on above: Performed By: #### L 500.4100, L100.0100, L500.4050, L501.9985, L502.0250 #### [facility] [address] [place], [address] Hematocrit (Bld) [Volume fraction] 39.0 % Normal 37-47 [facility] Comment on above: Performed By: #### L 500.4100, L100.0100, L500.4050, L501.9985, L502.0250 #### [facility] [address] [place], [address] Hemoglobin (Bld) [Mass/Vol] 13.1 g/dL Normal 12.0-15.0 [facility] Comment on above: Performed By: #### L 500.4100, L100.0100, L500.4050, L501.9985, L502.0250 #### [facility] [address] [place], [address] IG% 2.300 High 0.0-0.9 [facility] Comment on above: Result Comment: IG% - Immature Granulocytes (promyelocytes, myelocytes and metamyelocytes) > 1% indicates that a LEFT SHIFT is Present. Performed By: #### L 500.4100, L100.0100, L500.4050, L501.9985, L502.0250 #### [facility] [address] [place], [address] Lymphocytes/100 WBC (Bld) 32.5 % Normal 19-41 [facility] Comment on above: Performed By: #### L 500.4100, L100.0100, L500.4050, L501.9985, L502.0250 #### [facility] [address] [place], [address] MCH (RBC) [Entitic mass] 31.2 pg Normal 27.0-32.0 [facility] Comment on above: Performed By: #### L 500.4100, L100.0100, L500.4050, L501.9985, L502.0250 #### [facility] [address] [place], [address] MCHC (RBC) [Mass/Vol] 33.6 g/dL Normal 32-36 [facility] Comment on above: Performed By: #### L 500.4100, L100.0100, L500.4050, L501.9985, L502.0250 #### [facility] [address] [place], [address] MCV (RBC) [Entitic vol] 92.9 fL Normal 81-99 [facility] Comment on above: Performed By: #### L 500.4100, L100.0100, L500.4050, L501.9985, L502.0250 #### [facility] [address] [place], [address] Monocytes/100 WBC (Bld) 5.1 % Normal 0-10 [facility] Comment on above: Performed By: #### L 500.4100, L100.0100, L500.4050, L501.9985, L502.0250 #### [facility] [address] [place], [address] Neutrophils/100 WBC (Bld) 56.7 % Normal 47-70 [facility] Comment on above: Performed By: #### L 500.4100, L100.0100, L500.4050, L501.9985, L502.0250 #### [facility] [address] [place], [address] Nucleated RBC (Bld) [#/Vol] 0 10*3/uL Normal 0-5 [facility] Comment on above: Performed By: #### L 500.4100, L100.0100, L500.4050, L501.9985, L502.0250 #### [facility] [address] [place], [address] Platelet mean volume (Bld) [Entitic vol] 9.2 fL Normal 6.2-12.0 [facility] Comment on above: Performed By: #### L 500.4100, L100.0100, L500.4050, L501.9985, L502.0250 #### [facility] [address] [place], [address] Platelets (Bld) [#/Vol] 196 10*3/uL Normal 150-450 [facility] Comment on above: Performed By: #### L 500.4100, L100.0100, L500.4050, L501.9985, L502.0250 #### [facility] [address] [place], [address] RBC (Bld) [#/Vol] 4.20 10*6/uL Normal 4.2-5.4 [facility] Comment on above: Performed By: #### L 500.4100, L100.0100, L500.4050, L501.9985, L502.0250 #### [facility] [address] [place], [address] RDW SD 47.2 fl High 35.1-43.9 [facility] Comment on above: Performed By: #### L 500.4100, L100.0100, L500.4050, L501.9985, L502.0250 #### [facility] [address] [place], [address] WBC (Bld) [#/Vol] 8.4 10*3/uL Normal 4.4-11.0 [facility] Comment on above: Performed By: #### L 500.4100, L100.0100, L500.4050, L501.9985, L502.0250 #### [facility] [address] [place], [address] Comprehensive Metabolic Prof ilon 07-04-2024 Albumin [Mass/Vol] 3.6 g/dL Normal 3.2-5.0 [facility] Comment on above: Performed By: #### L 500.4100, L100.0100, L500.4050, L501.9985, L502.0250 ####[facility] [address] [place], [address] Albumin/Globulin [Mass ratio] 0.9 {ratio} Normal 0.9-2.4 [facility] Comment on above: Performed By: #### L 500.4100, L100.0100, L500.4050, L501.9985, L502.0250 ####[facility] [address] [place], [address] ALK P 96 U/L Normal 45-117 [facility] Comment on above: Performed By: #### L 500.4100, L100.0100, L500.4050, L501.9985, L502.0250 ####[facility] [address] [place], [address] ALT [Catalytic activity/Vol] 41 U/L Normal 13-56 [facility] Comment on above: Performed By: #### L 500.4100, L100.0100, L500.4050, L501.9985, L502.0250 ####[facility] [address] [place], [address] AST [Catalytic activity/Vol] 32 U/L Normal 15-37 [facility] Comment on above: Performed By: #### L 500.4100, L100.0100, L500.4050, L501.9985, L502.0250 ####[facility] [address] [place], [address] Bilirubin [Mass/Vol] 0.40 mg/dL Normal 0.20-1.00 [facility] Comment on above: Result Comment: For patients on eltrombopag therapy, use of Dimension [place] TBIL is not recommended. Performed By: #### L 500.4100, L100.0100, L500.4050, L501.9985, L502.0250 ####[facility] [address] [place], [address] BUN/CRE 13.9 RATIO Normal 10-20 [facility] Comment on above: Performed By: #### L 500.4100, L100.0100, L500.4050, L501.9985, L502.0250 ####[facility] [address] [place], [address] CA,Total 8.9 mg/dL Normal 8.5-10.1 [facility] Comment on above: Performed By: #### L 500.4100, L100.0100, L500.4050, L501.9985, L502.0250 ####[facility] [address] [place], [address] Chloride [Moles/Vol] 107 mmol/L Normal 98-107 [facility] Comment on above: Performed By: #### L 500.4100, L100.0100, L500.4050, L501.9985, L502.0250 ####[facility] [address] [place], [address] CO2 [Moles/Vol] 22.0 mmol/L Normal 21.0-32.0 [facility] Comment on above: Performed By: #### L 500.4100, L100.0100, L500.4050, L501.9985, L502.0250 ####[facility] [address] [place], [address] Creatinine [Mass/Vol] 0.79 mg/dL Normal 0.55-1.02 [facility] Comment on above: Result Comment: The validity of the calculated GFR GFRAA in patients over 70 years has not been determined. Clinical correlation is essential. Performed By: #### L 500.4100, L100.0100, L500.4050, L501.9985, L502.0250 ####[facility] [address] [place], [address] EST GFR - AA 103 mL/min Normal >60 [facility] Comment on above: Result Comment: Afri can Argentine GFR Calc Performed By: #### L 500.4100, L100.0100, L500.4050, L501.9985, L502.0250 ####[facility] [address] [place], [address] GAP 8 Normal 5-15 [facility] Comment on above: Performed By: #### L 500.4100, L100.0100, L500.4050, L501.9985, L502.0250 ####[facility] [address] [place], [address] GFR/1.73 sq M.predicted among non-blacks MDRD (S/P/Bld) [Vol rate/Area] 85 mL/min/{1.73_m2} Normal >60 [facility] Comment on above: Result Comment: Non- GFR Calc Performed By: #### L 500.4100, L100.0100, L500.4050, L501.9985, L502.0250 ####[facility] [address] [place], [address] Globulin (S) [Mass/Vol] 3.9 g/dL Normal 2.2-4.2 [facility] Comment on above: Performed By: #### L 500.4100, L100.0100, L500.4050, L501.9985, L502.0250 ####[facility] [address] [place], [address] Glucose [Mass/Vol] 186 mg/dL High 74-106 [facility] Comment on above: Result Comment: Fast ing Glucose result greater than or equal to 126 mg/dL suggests DIABETES MELLITUS per A.D.A. criteria. Performed By: #### L 500.4100, L100.0100, L500.4050, L501.9985, L502.0250 ####[facility] [address] [place], [address] Potassium [Moles/Vol] 3.8 mmol/L Normal 3.5-5.1 [facility] Comment on above: Performed By: #### L 500.4100, L100.0100, L500.4050, L501.9985, L502.0250 ####[facility] [address] [place], [address] Sodium [Moles/Vol] 137 mmol/L Normal 136-145 [facility] Comment on above: Performed By: #### L 500.4100, L100.0100, L500.4050, L501.9985, L502.0250 ####[facility] [address] [place], [address] T PROT 7.5 g/dL Normal 6.4-8.2 [facility] Comment on above: Performed By: #### L 500.4100, L100.0100, L500.4050, L501.9985, L502.0250 ####[facility] [address] [place], [address] Urea nitrogen [Mass/Vol] 11 mg/dL Normal 7-18 [facility] Comment on above: Performed By: #### L 500.4100, L100.0100, L500.4050, L501.9985, L502.0250 ####[facility] [address] [place], [address] Hemoglobin A1con 07-04-2024 HbA1c (Bld) [Mass fraction] 6.7 % High 3.8-5.6 [facility] Comment on above: Result Comment: Norm al < 5.7 % Prediabetic 5.7 - 6.4 % Diabetic >or= 6.5 % Please note range changes. Performed By: #### L 500.4100, L100.0100, L500.4050, L501.9985, L502.0250 ####[facility] [address] [place], [address] Lipid Profileon 07-04-2024 Cholesterol [Mass/Vol] 195 mg/dL Normal 200 [facility] Comment on above: Result Comment: <200 mg/dL Desirable 200-240 mg/dL Borderline >240 mg/dL High Risk Performed By: #### L 500.4100, L100.0100, L500.4050, L501.9985, L502.0250 ####[facility] [address] [place], [address] Cholesterol in HDL [Mass/Vol] 35 mg/dL Low [facility] Comment on above: Result Comment: The drugs N-Acetylcysteine and Metamizole may falsely depress this assay. Reference Range HDL <40 mg/dL Low HDL Cholesterol HDL >or= 60 mg/dL High HDL Cholesterol Performed By: #### L 500.4100, L100.0100, L500.4050, L501.9985, L502.0250 ####[facility] [address] [place], [address] Cholesterol in LDL [Mass/Vol] 105 mg/dL Normal 0-130 [facility] Comment on above: Performed By: #### L 500.4100, L100.0100, L500.4050, L501.9985, L502.0250 ####[facility] [address] [place], [address] Cholesterol in VLDL [Mass/Vol] 55 mg/dL High 5-40 [facility] Comment on above: Performed By: #### L 500.4100, L100.0100, L500.4050, L501.9985, L502.0250 ####[facility] [address] [place], [address] Triglyceride [Mass/Vol] 274 mg/dL High [facility] Comment on above: Result Comment: The drugs N-Acetylcysteine and Metamizole may falsely depress this assay. Serum Triglycerides Reference Interval Normal <150 mg/dL Borderline high 150 - 199 mg/dL High 200 - 499 mg/dL Very High > or = 500 mg/dL Performed By: #### L 500.4100, L100.0100, L500.4050, L501.9985, L502.0250 ####[facility] [address] [place], [place], [id number] MICROALBUMIN/CREATININE UR W RATIO (EXTERNAL)Ordered By: Lubna Yoon on 07-04-2024 Albumin/Creat Ratio 93 [facility] Creatinine Urine 164 [facility] Microalbumin, Random urine 153 [facility] Microalb:Creat Ratio,Random URon 07-04-2024 Creatinine [Mass/Vol] 164.00 mg/dL Normal NO RAN GE EST. [facility] Comment on above: Performed By: #### L 500.4100, L100.0100, L500.4050, L501.9985, L502.0250 ####[facility] [address] [place], [address] MALB:CRE 93.3 mg/g CRE High <30 mg/g CRE [facility] Comment on above: Performed By: #### L 500.4100, L100.0100, L500.4050, L501.9985, L502.0250 ####[facility] [address] [place], [place], [address] MICROALBUMIN,UR 153.0 mg/L Normal NO RANGE EST. [facility] Comment on above: Performed By: #### L 500.4100, L100.0100, L500.4050, L501.9985, L502.0250 ####[facility] [address] [place], [address] CNOVon 07-03-2024 CNOV Office Visit (FAMPWS) ---- TORI GRAY ([id number]) 1980 F Date Time Provider Department 07/03/24 3:[address] [facility] During your visit today, we recorded the following information about you: Pulse Blood pressure Weight 78/minute 152/82 128.8 kg Ivette Grimes MD 07/03/2024 3:54 PM Signed Patient presents with: Cough HPI: Patient presents today for office visit for follow up. Cough: Nonproductive. Nothing helping. Mucinex, dayquil, Nyquil. At night hard to breath when lies down until she puts her bipap on. Family has had pneumonia. Back to wearing masks at work and that doesn't help. COVID tests are negative. Only had a low grade fever one day. Has been going on for over a month. Having to use her inhaler. No sore throat. No sinus congestion. No nausea or vomiting. No diarrhea. Due for her normal labs. Sugars have been good. MEDICATIONS: Current Outpatient Medications Medication Sig tiZANidine (ZANAFLEX) 4 mg tablet Take 1 tablet by mouth every 8 hours as needed. topiramate (TOPAMAX) 100 mg tablet Take 1 tablet by mouth two times a day. gabapentin (NEURONTIN) 300 mg capsule Take 1 capsule by mouth two times a day for 180 days. FLUoxetine (PROZAC) 20 mg capsule Take 1 capsule by mouth once daily. lisinopril (ZESTRIL) 10 mg tablet Take 1 tablet by mouth once daily. rimegepant (NURTEC ODT) 75 mg disintegrating tablet Take 1 tablet by mouth once daily as needed. naratriptan (AMERGE) 2.5 mg tablet Take 1 tablet (2.5 mg) by mouth as directed. at the onset of headache; if headache returns or does not fully resolve, the dose may be repeated after 4 hours; do not exceed five(5) mg in 24 hours. NO more than 10 doses a month. dulaglutide (TRULICITY) 0.75 mg/0.5 mL pen injector Inject 0.75 mg subcutaneously one time a week. Inject dose once per week. Discard Pen After albuterol HFA (VENTOLIN HFA) 90 mcg/actuation inhaler Inhale 2 Puffs as instructed every 4 hours as needed for wheezing/shortness of breath. fexofenadine (ALMA ALLERGY) 180 mg tablet Take 1 tablet by mouth once daily. albuterol HFA (VENTOLIN HFA) 90 mcg/actuation inhaler Inhale 2 Puffs as instructed every 4 hours as needed for wheezing/shortness of breath. Ipratropium [place] (ATROVENT) 21 mcg (0.03 %) nasal spray Use 2 Sprays in the nose every 12 hours. omeprazole (PRILOSEC) 20 mg capsule Take 1 capsule by mouth daily before breakfast. 1/2 hr before meal. MAGNESIUM ORAL Take by mouth. meclizine (ANTIVERT) 25 mg tab Take 25 mg by mouth once daily. Takes two tabs in am BIPAP levonorgestrel (KYLEENA) 17.5 mcg/24 hrs (5 yrs) 19.5 mg IUD 1 Each by INTRAUTERINE route as directed. Herrick-3 Fatty Acids (FISH OIL) 500 mg cap Take 1 capsule by mouth once daily. blood sugar diagnostic (BLOOD GLUCOSE TEST) test strip Test blood sugar(s) 1 times daily. Dx: Type 2 DM - Controlled E11.9 Insulin: Yes Lancets lancets Test blood sugar(s) 1 times daily. Dx: Type 2 DM - Controlled E11.9 Insulin: No Enxswjlc-Wk-Zmd-Fe- FA tab Take 1 tablet by mouth once daily. No current facility-administer ed medications for this visit. ALLERGIES: ALLERGIES Allergen Reactions Lidocaine Hives Steroids [Betametha* Hives PAST MEDICAL HISTORY No date: Acute cholecystitis Comment: Cholecystitis 06/07/2014: Anxiety No date: Chronic back pain No date: Kidney stones No date: LETITIA treated with BiPAP No date: Type 2 diabetes mellitus (HCC) PAST SURGICAL HISTORY 2006: DELIVERY ONLY Comment: , low cervical 10/19/08: INSERT INTRAUTERINE DEVICE Comment: [facility] 2006: LAPAROSCOPY SURG CHOLECYSTECTOMY Comment: Cholecystectomy, lap (Rowena Monet) 2019: PAST SURGICAL HISTORY OF Comment: stent into kidney 07/13/2010: REMOVE IUD FAMILY HISTORY Problem Relation Age of Onset Alcohol/Drug Mother Heart Father [place] Cancer Father PANCREATIC CANCER Diabetes Father Coronary Artery Disease Father Anxiety disorder Sister Depression Sister Depression Brother Cancer Maternal Grandmother LUNG CANCER Diabetes Maternal Grandfather Heart Paternal Grandmother TRIPLE BYPASS SURGERY Social History Tobacco Use Smoking status: Never Smokeless tobacco: Never Vaping Use Vaping status: Never Used Substance Use Topics Alcohol use: No Drug use: No Reviewed current medications, allergies, past medical history, surgical history, family history and social history today. REVIEW OF SYSTEMS All other reviewed and negative other than HPI. VITALS: BP 152/82 Pulse 78 Wt 128.8 kg (284 lb) LMP (LMP Unknown) SpO2 98% BMI 41.94 kg/m? Last 4 Encounter Wt Readings: Date: Wt: 04/02/2024 126 kg (277 lb 12.5 oz) 12/26/2023 123.4 kg (271 lb 15 oz) 12/09/2023 122.9 kg (271 lb) 11/06/2023 130.2 kg (287 lb) PHYSICAL EXAMINATION: General appearance: Well appearing, alert, in no (more content not included)... Normal [facility] Chiropractic Reporton 2023 Chiropractic Report [facility] [address] [place] [id number] OFFICE VISIT Date of Service: 07/02/24 MR#: [id number] Acct: [id number] Name: TORI GRAY Rep #: [id number] : 1980 Provider: CONCEPCIÓN Mccarty Do ssi Age/Sex: 44/F Location[place] [facility] Status: Signed Intake Vital Signs 03/09/24 14:53 Height 5 ft 7 in Intake Visit Reasons: Back pain Chief Complaint: low Back pain Allergies Corticosteroids (Glucocorticoids) (steroids) Allergy (Verified 07/02/24 10:04) Hives lidocaine Adverse Reaction (Intermediate, Verified 07/02/24 10:04) Hives Medications ???Medication ???Instructions ???Recorded ???Confirmed ???Type blood sugar diagnostic (Blood #10 ea 04/26/20 07/02/24 History Glucose Test strips) ipratropium bromide 21 mcg (0.03 2 spray intranasal BID allergies 08/23/20 07/02/24 History %) nasal spray omega-3 fatty acids 1,000 mg 1,000 mg PO DAILY supplement 02/21/21 07/02/24 History capsule (Fish Oil Concentrate) albuterol sulfate 90 mcg/actuation 2 puff inhalation Q4H PRN 08/10/22 07/02/24 History aerosol inhaler shortness of breath or wheezing dulaglutide 0.75 mg/0.5 mL 0.75 mg subcut QWEEK diabetes 08/10/22 07/02/24 History subcutaneous pen injector (Trulicity) fexofenadine 180 mg tablet 180 mg PO DAILY allergies 08/10/22 07/02/24 History (Allergy Relief (fexofenadine)) levonorgestrel 17.5 mcg/24 hr (up 1 device intrauterine ONCE 08/10/22 07/02/24 History to 5 yrs) 19.5mg intrauterine control device tizanidine 4 mg tablet 4 mg PO Q8H PRN Muscle Spasm 08/10/22 07/02/24 History omeprazole 20 mg capsule,delayed 20 mg PO DAILY PRN gerd 08/16/22 07/02/24 History release topiramate 100 mg tablet 100 mg PO BID seizures 08/16/22 07/02/24 History fluoxetine 20 mg capsule 20 mg PO DAILY mental health 12/28/22 07/02/24 History gabapentin 300 mg capsule 300 mg PO BID nerve pain 12/28/22 07/02/24 History lisinopril 10 mg tablet 10 mg PO DAILY blood pressure 12/28/22 07/02/24 History ondansetron HCl 4 mg tablet 4 mg PO Q8H PRN nausea 12/28/22 07/02/24 History rimegepant 75 mg disintegrating 75 mg PO DAILY PRN migraine 02/04/24 07/02/24 History tablet (Nurtec ODT) headache PFSH Medical History Abnormal ECG Prolonged Q-T interval on ECG Microalbuminuria LETITIA (obstructive sleep apnea) Back pain 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 Nausea Left shoulder pain Pain of left scapula Left upper extremity numbness Left shoulder strain Obstructive Sleep Apnea-Hypopnea Syndrome Fatty liver Type 2 diabetes mellitus with microalbuminuria Type 2 diabetes mellitus without complication, with long-term current use of insulin History of stent into kidney Anxiety Acute cholecystitis Segmental and somatic dysfunction of cervical region Migraines Acute bronchitis Acute respiratory insufficiency Dyspnea History of obstructive sleep apnea Elevated triglycerides with high cholesterol Calculus of left kidney Nonalcoholic hepatosteatosis Hydroureter, left Hydronephrosis, left Acute kidney injury Pyelonephritis Nephrolithiasis Obesity Hypertension Type 2 diabetes mellitus Segmental and somatic dysfunction of lumbar region Vertigo Left upper quadrant abdominal pain Dysuria Urinary tract infection Segmental and somatic dysfunction of pelvic region Segmental and somatic dysfunction of thoracic region Lumbar facet arthropathy Lumbosacral spondylosis Radiculopathy of lumbosacral region Disc displacement, lumbar Degeneration of intervertebral disc of lumbosacral region Surgical History History of urethral stent ( 2018) Hx laparoscopic cholecystectomy ( 2005) H/O: ( 2005) Family History Father Diabetes Myocardial infarction Pancreatic cancer Mother Alcohol abuse Drug abuse Grandfather Diabetes Grandmother Lung cancer Grandmother Heart disease Triple bypass surgery Social History Smoking Status: Never smoker alcohol intake: never substance use type: does not use caffeine: Yes Type: coffee what type of physical activity do you participate in: walking frequency: daily seatbelt use: always do you feel safe at home: Yes HPI Back pain Chief Complaint: neck/low back pain Visit Number: 6 Details: Tori is a 44 y/o F here today to f/u for ongoing low back pain. Pt. advises she is experiencing some mild low back pain. She states she has not been working many extra shifts lately. She treats pain at home by using a TENS unit and alternates Tylenol and Aleve as needed. Pt. denies new injury, numbness or tingling (more content not included)... Normal [facility] CNPIliana 06-04-2024 CNPN Telephone ([facility]) ---- TORI GRAY ([id number]) 1980 F Date Time Provider Department 06/04/24 FATUMA BECKFORD [facility] During your visit today, we recorded the following information about you: Claribel Wright LPN 06/04/2024 2:23 PM Signed Prior Authorization PENDING Prior Authorization Request From: [facility] Medication/ Treatment: [facility] Submitted Via Cover My Meds Reference# (if available): (Santos: [id number]) Claribel Wright LPN 06/04/2024 3:39 PM Signed Prior Auth Determination: Denied with Cover my meds. Received via: M Medication/ Treatment: [place] Reason: Outcome N/A today by [facility] 2017 [facility] Prior Authorization Department does not manage Prior Authorizations for this plan. Please contact member services phone number on the back of the member ID card. Appeal Information (if included): Re submitted via [employer] Faxed to [phone] Confirmation received Fatuma Brower RN 07/28/2024 3:12 PM Addendum Received fax from [facility] asking for [facility] PA with Cover My Meds Santos [id number]. Submitted this santos on Cover My Meds, and was directed to contact [employer] at [phone]. Called this phone number, opened . They state the previous case submitted June 04 was closed due to lack of information on questionnaires faxed 5 times to [phone]. Asked that they fax the [place] office the questionnaire again. Awaiting fax and will complete in [place] to request PAFatuma Agustin RN 07/28/2024 3:34 PM Signed Received questionnaire, completed and placed in Fatuma Beckford PA-C Brandy inbox to review and sign. Fatuma Brower RN 08/06/2024 11:54 AM Signed Faxed prior auth form. While pending, placed prior auth forms in the nurses station filing cabinet in [place]. Darrion Severino MA 08/20/2024 9:55 AM Signed Prior Auth Determination: Approved Medication/ Treatment: [facility] Auth Information: Approval found in scanned docs Approved 08/06/2024 - 08/05/2025 Scan on 08/06/2024 by Provider, JONNY Powell: [facility] Approval Allergies As of Date: 06/04/2024 Noted Allergy Reaction LIDOCAINE 12/24/2019 4 - Hives STEROIDS (BETAMETHASONE DIPROPION* 2 4 - Hives Date Reviewed: 04/02/2024 Reviewed by: Fatuma Beckford PA-C - Fully Assessed Reason for Visit: Insurance Authorization [[id number]] Cmt: [facility] Prescriptions as of 08/20/2024 - tiZANidine (ZANAFLEX) 4 mg tablet Take 1 tablet by mouth every 8 hours as needed. - semaglutide (OZEMPIC) 0.25 mg or 0.5 mg (2 mg/3 mL) pen Inject 0.25 mg subcutaneously one time a week. - FLUoxetine (PROZAC) 20 mg capsule Take 1 capsule by mouth once daily. - topiramate (TOPAMAX) 100 mg tablet Take 1 tablet by mouth two times a day. - gabapentin (NEURONTIN) 300 mg capsule Take 1 capsule by mouth two times a day for 180 days. - lisinopril (ZESTRIL) 10 mg tablet Take 1 tablet by mouth once daily. - rimegepant ([facility] ODT) 75 mg disintegrating tablet Take 1 tablet by mouth once daily as needed. - naratriptan (AMERGE) 2.5 mg tablet Take 1 tablet (2.5 mg) by mouth as directed. at the onset of headache; if headache returns or does not fully resolve, the dose may be repeated after 4 hours; do not exceed five(5) mg in 24 hours. NO more than 10 doses a month. - albuterol HFA (VENTOLIN HFA) 90 mcg/actuation inhaler Inhale 2 Puffs as instructed every 4 hours as needed for wheezing/shortness of breath. - fexofenadine (ALMA ALLERGY) 180 mg tablet Take 1 tablet by mouth once daily. - albuterol HFA (VENTOLIN HFA) 90 mcg/actuation inhaler Inhale 2 Puffs as instructed every 4 hours as needed for wheezing/shortness of breath. - Ipratropium [place] (ATROVENT) 21 mcg (0.03 %) nasal spray Use 2 Sprays in the nose every 12 hours. - omeprazole (PRILOSEC) 20 mg capsule Take 1 capsule by mouth daily before breakfast. 1/2 hr before meal. - MAGNESIUM ORAL Take by mouth. - meclizine (ANTIVERT) 25 mg tab Take 25 mg by mouth once daily. Takes two tabs in am - BIPAP - levonorgestrel (KYLEENA) 17.5 mcg/24 hrs (5 yrs) 19.5 mg IUD 1 Each by INTRAUTERINE route as directed. - Herrick-3 Fatty Acids (FISH OIL) 500 mg cap Take 1 capsule by mouth once daily. - blood sugar diagnostic (BLOOD GLUCOSE TEST) test strip Test blood sugar(s) 1 times daily. Dx: Type 2 DM - Controlled E11.9 Insulin: Yes - Lancets lancets Test blood sugar(s) 1 times daily. Dx: Type 2 DM - Controlled E11.9 Insulin: No - Crnjfaoz-Gf-Fpl-Fe- FA tab Take 1 tablet by mouth once daily. Meds Comments as of 03/01/2019: Percocet March 01, 2019 Stephanie Suresh RN Problem List As Of Date 06/04/2024 Noted Resolved SUPERVIS NORMAL 1ST PREG [Z34.00] 11/09/2005 07/02/2006 TRANS HYPERTEN-ANTEPART [O13.9] 06/19/2006 07/02/2006 KERATOSIS PILARIS////SKIN ANOMALY NEC [Q82.8] 03/26/2007 01/23/2010 Other Acne [L70.8] (more content not included)... Normal [facility] Chiropractic Reporton 2023 Chiropractic Report [facility] [address] [place], [place] [id number] OFFICE VISIT Date of Service: 06/04/24 MR#: [id number] Acct: [id number] Name: TORI GRAY Rep #: [id number] : 1980 Provider: CONCEPCIÓN Montgomery Age/Sex: 43/F Location: [facility] Status: Signed Intake Vital Signs 03/09/24 14:53 Height 5 ft 7 in Intake Visit Reasons: Back pain Chief Complaint: low Back pain Is patient in pain?: Yes (left low back ) Pain scale (1-10): 9 Allergies Corticosteroids (Glucocorticoids) (steroids) Allergy (Verified 06/04/24 09:49) Hives lidocaine Adverse Reaction (Intermediate, Verified 06/04/24 09:49) Hives Medications ???Medication ???Instructions ???Recorded ???Confirmed ???Type blood sugar diagnostic (Blood #10 ea 04/26/20 06/04/24 History Glucose Test strips) ipratropium bromide 21 mcg (0.03 2 spray intranasal BID allergies 08/23/20 06/04/24 History %) nasal spray omega-3 fatty acids 1,000 mg 1,000 mg PO DAILY supplement 02/21/21 06/04/24 History capsule (Fish Oil Concentrate) albuterol sulfate 90 mcg/actuation 2 puff inhalation Q4H PRN 08/10/22 06/04/24 History aerosol inhaler shortness of breath or wheezing dulaglutide 0.75 mg/0.5 mL 0.75 mg subcut QWEEK diabetes 08/10/22 06/04/24 History subcutaneous pen injector (Trulicity) fexofenadine 180 mg tablet 180 mg PO DAILY allergies 08/10/22 06/04/24 History (Allergy Relief (fexofenadine)) levonorgestrel 17.5 mcg/24 hr (up 1 device intrauterine ONCE 08/10/22 06/04/24 History to 5 yrs) 19.5mg intrauterine control device tizanidine 4 mg tablet 4 mg PO Q8H PRN Muscle Spasm 08/10/22 06/04/24 History omeprazole 20 mg capsule,delayed 20 mg PO DAILY PRN gerd 08/16/22 06/04/24 History release topiramate 100 mg tablet 100 mg PO BID seizures 08/16/22 06/04/24 History fluoxetine 20 mg capsule 20 mg PO DAILY mental health 12/28/22 06/04/24 History gabapentin 300 mg capsule 300 mg PO BID nerve pain 12/28/22 06/04/24 History lisinopril 10 mg tablet 10 mg PO DAILY blood pressure 12/28/22 06/04/24 History ondansetron HCl 4 mg tablet 4 mg PO Q8H PRN nausea 12/28/22 06/04/24 History rimegepant 75 mg disintegrating 75 mg PO DAILY PRN migraine 02/04/24 06/04/24 History tablet (Nurtec ODT) headache PFSH Medical History Abnormal ECG Prolonged Q-T interval on ECG Microalbuminuria LETITIA (obstructive sleep apnea) Back pain 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 Nausea Left shoulder pain Pain of left scapula Left upper extremity numbness Left shoulder strain Obstructive Sleep Apnea-Hypopnea Syndrome Fatty liver Type 2 diabetes mellitus with microalbuminuria Type 2 diabetes mellitus without complication, with long-term current use of insulin History of stent into kidney Anxiety Acute cholecystitis Segmental and somatic dysfunction of cervical region Migraines Acute bronchitis Acute respiratory insufficiency Dyspnea History of obstructive sleep apnea Elevated triglycerides with high cholesterol Calculus of left kidney Nonalcoholic hepatosteatosis Hydroureter, left Hydronephrosis, left Acute kidney injury Pyelonephritis Nephrolithiasis Obesity Hypertension Type 2 diabetes mellitus Segmental and somatic dysfunction of lumbar region Vertigo Left upper quadrant abdominal pain Dysuria Urinary tract infection Segmental and somatic dysfunction of pelvic region Segmental and somatic dysfunction of thoracic region Lumbar facet arthropathy Lumbosacral spondylosis Radiculopathy of lumbosacral region Disc displacement, lumbar Degeneration of intervertebral disc of lumbosacral region Surgical History History of urethral stent ( 2018) Hx laparoscopic cholecystectomy ( 2005) H/O: ( 2005) Family History Father Diabetes Myocardial infarction Pancreatic cancer Mother Alcohol abuse Drug abuse Grandfather Diabetes Grandmother Lung cancer Grandmother Heart disease Triple bypass surgery Social History Smoking Status: Never smoker alcohol intake: never substance use type: does not use caffeine: Yes Type: coffee what type of physical activity do you participate in: walking frequency: daily seatbelt use: always do you feel safe at home: Yes HPI Back pain Chief Complaint: neck/low back pain Visit Number: 5 Details: Tori is a 43 y/o F here today to f/u for ongoing low back pain. Pt. advises her low back pain flared up Saturday insidiously. She states she has been experiencing a great deal of left low back pa in. She is unsure what has caused the flare up because she (more content not included)... Normal [facility] CNCOon 06-03-2024 CNCO Letter Text Normal [facility] Chiropractic Reporton 2023 Chiropractic Report [facility]ropractic [address] [place] [address] OFFICE VISIT Date of Service: 05/12/24 MR#: [id number] Acct: [id number] Name: TORI GRAY Rep #: [id number] : 1980 Provider: CONCEPCIÓN Montgomery Age/Sex: 43/F Location: [facility] [place] Status: Signed Intake Vital Signs 03/09/24 14:53 Height 5 ft 7 in Weight: 278 lb BMI 43.5 BP 137/78 H Blood Pressure Location Lt brachial Position Sitting Respiration 18 Pulse 73 Pulse Source Monitor Intake Visit Reasons: Back pain Chief Complaint: low Back pain Is patient in pain?: Yes (low back ) Pain scale (1-10): 8 Allergies Corticosteroids (Glucocorticoids) (steroids) Allergy (Verified 05/12/24 09:42) Hives lidocaine Adverse Reaction (Intermediate, Verified 05/12/24 09:42) Hives Medications ???Medication ???Instructions ???Recorded ???Confirmed ???Type blood sugar diagnostic (Blood #10 ea 04/26/20 05/12/24 History Glucose Test strips) ipratropium bromide 21 mcg (0.03 2 spray intranasal BID allergies 08/23/20 05/12/24 History %) nasal spray omega-3 fatty acids 1,000 mg 1,000 mg PO DAILY supplement 02/21/21 05/12/24 History capsule (Fish Oil Concentrate) albuterol sulfate 90 mcg/actuation 2 puff inhalation Q4H PRN 08/10/22 05/12/24 History aerosol inhaler shortness of breath or wheezing dulaglutide 0.75 mg/0.5 mL 0.75 mg subcut QWEEK diabetes 08/10/22 05/12/24 History subcutaneous pen injector (Trulicity) fexofenadine 180 mg tablet 180 mg PO DAILY allergies 08/10/22 05/12/24 History (Allergy Relief (fexofenadine)) levonorgestrel 17.5 mcg/24 hr (up 1 device intrauterine ONCE 08/10/22 05/12/24 History to 5 yrs) 19.5mg intrauterine control device tizanidine 4 mg tablet 4 mg PO Q8H PRN Muscle Spasm 08/10/22 05/12/24 History omeprazole 20 mg capsule,delayed 20 mg PO DAILY PRN gerd 08/16/22 05/12/24 History release topiramate 100 mg tablet 100 mg PO BID seizures 08/16/22 05/12/24 History fluoxetine 20 mg capsule 20 mg PO DAILY mental health 12/28/22 05/12/24 History gabapentin 300 mg capsule 300 mg PO BID nerve pain 12/28/22 05/12/24 History lisinopril 10 mg tablet 10 mg PO DAILY blood pressure 12/28/22 05/12/24 History ondansetron HCl 4 mg tablet 4 mg PO Q8H PRN nausea 12/28/22 05/12/24 History rimegepant 75 mg disintegrating 75 mg PO DAILY PRN migraine 02/04/24 05/12/24 History tablet (Nurtec ODT) headache PFSH Medical History Abnormal ECG Prolonged Q-T interval on ECG Microalbuminuria LETITIA (obstructive sleep apnea) Back pain 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 Nausea Left shoulder pain Pain of left scapula Left upper extremity numbness Left shoulder strain Obstructive Sleep Apnea-Hypopnea Syndrome Fatty liver Type 2 diabetes mellitus with microalbuminuria Type 2 diabetes mellitus without complication, with long-term current use of insulin History of stent into kidney Anxiety Acute cholecystitis Segmental and somatic dysfunction of cervical region Migraines Acute bronchitis Acute respiratory insufficiency Dyspnea History of obstructive sleep apnea Elevated triglycerides with high cholesterol Calculus of left kidney Nonalcoholic hepatosteatosis Hydroureter, left Hydronephrosis, left Acute kidney injury Pyelonephritis Nephrolithiasis Obesity Hypertension Type 2 diabetes mellitus Segmental and somatic dysfunction of lumbar region Vertigo Left upper quadrant abdominal pain Dysuria Urinary tract infection Segmental and somatic dysfunction of pelvic region Segmental and somatic dysfunction of thoracic region Lumbar facet arthropathy Lumbosacral spondylosis Radiculopathy of lumbosacral region Disc displacement, lumbar Degeneration of intervertebral disc of lumbosacral region Surgical History History of urethral stent ( 2019) Hx laparoscopic cholecystectomy ( 2005) H/O: ( 2005) Family History Father Diabetes Myocardial infarction Pancreatic cancer Mother Alcohol abuse Drug abuse Grandfather Diabetes Grandmother Lung cancer Grandmother Heart disease Triple bypass surgery Social History Smoking Status: Never smoker alcohol intake: never substance use type: does not use caffeine: Yes Type: coffee what type of physical activity do you participate in: walking frequency: daily seatbelt use: always do you feel safe at home: Yes HPI Back pain Chief Complaint: neck/low back pain Visit Number: 4 Details: Tori is a 43 y/o F here today to f/u for ongoing neck, left shoulder, and low back pain. Pt. (more content not included)... [facility] 05-01-2024 [facility] Telephone ([employer] Mobile[employer]) ---- TORI GRAY ([id number]) 1980 F Date Time Provider Department 05/01/24 IVETTE GRIMES During your visit today, we recorded the following information about you: Rukhsana Wood 05/01/2024 11:53 AM Signed Lorilie is calling Ivette Grimes MD today to request a medication not on current med list: Tizanidine 4 mg tablet taking every 8 hours as needed #60 refill 0 Pharmacy [facility] Please send today if possible, patient is out of this medicaiton Patient has been identified by name and birthdate. Duration of symptoms: N/A Person calling: self Call patient at: on cell [phone] (home) [phone] (work) [phone] (cell) Was an appointment scheduled: No Closing statement: Results or non-symptom based questions: Thank you for calling [facility], your call will be returned within the next business day. Rukhsana [facility] Cindy Edouard APRN.ELECTROTYPER HELPER 05/01/2024 12:09 PM Signed Script sent. Cindy Edouard APRN.CNP Allergies As of Date: 05/01/2024 Noted Allergy Reaction LIDOCAINE 12/24/2019 4 - Hives STEROIDS (BETAMETHASONE DIPROPION* 2 4 - Hives Date Reviewed: 04/02/2024 Reviewed by: Fatuma Beckford PA-C - Fully Assessed Reason for Visit: medication not on current medication list [Other] Order(s):tiZANidine (ZANAFLEX) 4 mg tabletTake 1 tablet by mouth every 8 hours as needed.Disp: 60 tabletRfl: 0 Prescriptions as of 05/01/2024 - tiZANidine (ZANAFLEX) 4 mg tablet Take 1 tablet by mouth every 8 hours as needed. - gabapentin (NEURONTIN) 300 mg capsule Take 1 capsule by mouth two times a day for 180 days. - FLUoxetine (PROZAC) 20 mg capsule Take 1 capsule by mouth once daily. - lisinopril (ZESTRIL) 10 mg tablet Take 1 tablet by mouth once daily. - rimegepant (NURTEC ODT) 75 mg disintegrating tablet Take 1 tablet by mouth once daily as needed. - topiramate (TOPAMAX) 100 mg tablet Take 1 tablet by mouth two times a day. - naratriptan (AMERGE) 2.5 mg tablet Take 1 tablet (2.5 mg) by mouth as directed. at the onset of headache; if headache returns or does not fully resolve, the dose may be repeated after 4 hours; do not exceed five(5) mg in 24 hours. NO more than 10 doses a month. - dulaglutide (TRULICITY) 0.75 mg/0.5 mL pen injector Inject 0.75 mg subcutaneously one time a week. Inject dose once per week. Discard Pen After - albuterol HFA (VENTOLIN HFA) 90 mcg/actuation inhaler Inhale 2 Puffs as instructed every 4 hours as needed for wheezing/shortness of breath. - fexofenadine (ALMA ALLERGY) 180 mg tablet Take 1 tablet by mouth once daily. - albuterol HFA (VENTOLIN HFA) 90 mcg/actuation inhaler Inhale 2 Puffs as instructed every 4 hours as needed for wheezing/shortness of breath. - Ipratropium [place] (ATROVENT) 21 mcg (0.03 %) nasal spray Use 2 Sprays in the nose every 12 hours. - omeprazole (PRILOSEC) 20 mg capsule Take 1 capsule by mouth daily before breakfast. 1/2 hr before meal. - MAGNESIUM ORAL Take by mouth. - meclizine (ANTIVERT) 25 mg tab Take 25 mg by mouth once daily. Takes two tabs in am - BIPAP - levonorgestrel (KYLEENA) 17.5 mcg/24 hrs (5 yrs) 19.5 mg IUD 1 Each by INTRAUTERINE route as directed. - Herrick-3 Fatty Acids (FISH OIL) 500 mg cap Take 1 capsule by mouth once daily. - blood sugar diagnostic (BLOOD GLUCOSE TEST) test strip Test blood sugar(s) 1 times daily. Dx: Type 2 DM - Controlled E11.9 Insulin: Yes - Lancets lancets Test blood sugar(s) 1 times daily. Dx: Type 2 DM - Controlled E11.9 Insulin: No - Knssdoab-Pi-Mep-Fe- FA tab Take 1 tablet by mouth once daily. Meds Comments as of 03/01/2019: Percocet March 01, 2019 Stephanie Suresh RN Problem List As Of Date 05/01/2024 Noted Resolved SUPERVIS NORMAL 1ST PREG [Z34.00] 11/09/2005 07/02/2006 TRANS HYPERTEN-ANTEPART [O13.9] 06/19/2006 07/02/2006 KERATOSIS PILARIS////SKIN ANOMALY NEC [Q82.8] 03/26/2007 01/23/2010 Other Acne [L70.8] 03/26/2007 FOLLICULITIS///HAIR DISEASES NEC [L67.8, L73.8] 03/26/2007 01/23/2010 Lichenification and Lichen Simplex Chronicus [L*03/26/2007 01/23/2010 DERMATOFIBROMA///BE NIGN KAILEY SKIN ARM [D23.60] 03/26/2007 01/23/2010 Contact Dermatitis and Other Eczema, due to Uns*03/26/2007 01/23/2010 SACROILIITIS [M46.1] 05/06/2009 01/23/2010 Routine general medical examination at a health*01/23/2010 12/06/2012 Class: Chronic Routine gynecological examination [Z01.419] 01/23/2010 02/22/2014 Class: Chronic Morbid Obesity [E66.01] 01/23/2010 Lumbar Disc Disorder [M51.9] 02/16/2010 Routine general medical examination at a [facility]*12/06/2012 02/22/2014 Anxiety [F41.9] 06/07/2014 Type 2 diabetes mellitus with microalbuminuria,*0 07/04/2018 Fatty liver [K76.0] 07/21/2018 LETITIA (obstructive sleep apnea) [G47.33] 07/21/2018 Microalbuminuria [R80.9] 09/30/2018 09/04/2022 Obes (more content not included)... Normal [facility] 04-14-2024 [facility] Telephone (FAMWS) ---- TORI GRAY ([id number]) 1980 F Date Time Provider Department 04/14/[address] [facility] During your visit today, we recorded the following information about you: Mirna Santos MA 04/15/2024 9:01 AM Signed Submitted PA through [employer] for Trulicity 0.75 mg. Form faxed with office notes and A1c results STEFFANIE Duvall Elizabeth, MA 04/15/2024 12:43 PM Signed PA approved till 04/14/2025. Faxed approval to pharmacy and patient left Mirna Santos MA Allergies As of Date: 04/14/2024 Noted Allergy Reaction LIDOCAINE 12/24/2019 4 - Hives STEROIDS (BETAMETHASONE DIPROPION* 2 4 - Hives Date Reviewed: 04/02/2024 Reviewed by: Fatuma Beckford PA-C - Fully Assessed Reason for Visit: Insurance Authorization [[id number]] Cmt: Trulicity Prescriptions as of 04/15/2024 - FLUoxetine (PROZAC) 20 mg capsule Take 1 capsule by mouth once daily. - lisinopril (ZESTRIL) 10 mg tablet Take 1 tablet by mouth once daily. - rimegepant (NURTEC ODT) 75 mg disintegrating tablet Take 1 tablet by mouth once daily as needed. - topiramate (TOPAMAX) 100 mg tablet Take 1 tablet by mouth two times a day. - naratriptan (AMERGE) 2.5 mg tablet Take 1 tablet (2.5 mg) by mouth as directed. at the onset of headache; if headache returns or does not fully resolve, the dose may be repeated after 4 hours; do not exceed five(5) mg in 24 hours. NO more than 10 doses a month. - dulaglutide (TRULICITY) 0.75 mg/0.5 mL pen injector Inject 0.75 mg subcutaneously one time a week. Inject dose once per week. Discard Pen After - albuterol HFA (VENTOLIN HFA) 90 mcg/actuation inhaler Inhale 2 Puffs as instructed every 4 hours as needed for wheezing/shortness of breath. - fexofenadine (ALMA ALLERGY) 180 mg tablet Take 1 tablet by mouth once daily. - albuterol HFA (VENTOLIN HFA) 90 mcg/actuation inhaler Inhale 2 Puffs as instructed every 4 hours as needed for wheezing/shortness of breath. - gabapentin (NEURONTIN) 300 mg capsule Take 1 capsule by mouth twice daily for 180 days. Take one po qhs - Ipratropium [place] (ATROVENT) 21 mcg (0.03 %) nasal spray Use 2 Sprays in the nose every 12 hours. - omeprazole (PRILOSEC) 20 mg capsule Take 1 capsule by mouth daily before breakfast. 1/2 hr before meal. - MAGNESIUM ORAL Take by mouth. - meclizine (ANTIVERT) 25 mg tab Take 25 mg by mouth once daily. Takes two tabs in am - BIPAP - levonorgestrel (KYLEENA) 17.5 mcg/24 hrs (5 yrs) 19.5 mg IUD 1 Each by INTRAUTERINE route as directed. - Herrick-3 Fatty Acids (FISH OIL) 500 mg cap Take 1 capsule by mouth once daily. - blood sugar diagnostic (BLOOD GLUCOSE TEST) test strip Test blood sugar(s) 1 times daily. Dx: Type 2 DM - Controlled E11.9 Insulin: Yes - Lancets lancets Test blood sugar(s) 1 times daily. Dx: Type 2 DM - Controlled E11.9 Insulin: No - Aqtjdcue-Gp-Qvm-Fe- FA tab Take 1 tablet by mouth once daily. Meds Comments as of 03/01/2019: Percocet March 01, 2019 Stephanie Suresh RN Problem List As Of Date 04/14/2024 Noted Resolved SUPERVIS NORMAL 1ST PREG [Z34.00] 11/09/2005 07/02/2006 TRANS HYPERTEN-ANTEPART [O13.9] 06/19/2006 07/02/2006 KERATOSIS PILARIS////SKIN ANOMALY NEC [Q82.8] 03/26/2007 01/23/2010 Other Acne [L70.8] 03/26/2007 FOLLICULITIS///HAIR DISEASES NEC [L67.8, L73.8] 03/26/2007 01/23/2010 Lichenification and Lichen Simplex Chronicus [L*03/26/2007 01/23/2010 DERMATOFIBROMA///BE NIGN KAILEY SKIN ARM [D23.60] 03/26/2007 01/23/2010 Contact Dermatitis and Other Eczema, due to Uns*03/26/2007 01/23/2010 SACROILIITIS [M46.1] 05/06/2009 01/23/2010 Routine general medical examination at a [facility]*01/23/2010 12/06/2012 Class: Chronic Routine gynecological examination [Z01.419] 01/23/2010 02/22/2014 Class: Chronic Morbid Obesity [E66.01] 01/23/2010 Lumbar Disc Disorder [M51.9] 02/16/2010 Routine general medical examination at [facility]*12/06/2012 02/22/2014 Anxiety [F41.9] 06/07/2014 Type 2 diabetes mellitus with microalbuminuria,*0 07/04/2018 Fatty liver [K76.0] 07/21/2018 LETITIA (obstructive sleep apnea) [G47.33] 07/21/2018 Microalbuminuria [R80.9] 09/30/2018 09/04/2022 Obesity, Class III, BMI >= 40 [E66.01] 11/26/2019 09/04/2022 Prolonged Q-T interval on ECG [R94.31] 03/31/2020 Calculus of kidney [N20.0] 09/04/2022 Chest pain [R07.9] 09/04/2022 09/04/2022 Contusion of knee [S80.00XA] 09/04/2022 09/04/2022 Essential (primary) hypertension [I10] 08/16/2022 Fall [W19.XXXA] 09/04/2022 09/04/2022 Headache [R51] 09/04/2022 09/04/2022 Herniation of lumbar intervertebral disc with r*06/10/2017 History of type 2 diabetes mellitus [Z86.39] 09/04/2022 09/04/2022 Low back pain, unspecified [M54.50] 04/17/2022 09/04/2022 Migraine headache [G43.909] 09/04/2022 Muscle pain [M79.10] 09/04/2022 09/04/2022 Nausea, vomiting, and diarrhea [R11.2, (more content not included)... Normal [facility] Absolute lymphocyte countOrd ered By: Sam Pearl on 02-04-2024 Lymphocytes Auto (Unsp spec) [#/Vol] 2.24 10*3/uL 0.83-4.51 [facility] Automated lymphocyte count a s percentage of total leukocytesOrdered By: Sam Pearl on 02-04-2024 Lymphocytes/100 WBC Auto (Unsp spec) 19.8 % 19-41 [facility] Basophil percentageOrdered B y: Sam Peral on 02-04-2024 Basophils/100 WBC (Bld) 0.4 % 0-1 [facility] Chloride [Moles/Vol] 106 mmol/L 98-107 [facility] Eosinophils/100 WBC (Bld) 0.9 % 0-5 [facility] Glucose [Mass/Vol] 246 mg/dL 74-106 [facility] Comment on above: Glucose result great er than or equal to 200 mg/dLsuggests DIABETES MELLITUS per A.D.A. criteria. Hemoglobin (Bld) [Mass/Vol] 11.2 g/dL 12.0-15.0 [facility] Monocytes/100 WBC (Bld) 6.6 % 0-10 [facility] Neutrophils (Bld) [#/Vol] 8.0 10*3/uL 2.0-7.7 [facility] Neutrophils/100 WBC (Bld) 71.0 % 47-70 [facility] Potassium [Moles/Vol] 3.6 mmol/L 3.5-5.1 [facility] Sodium [Moles/Vol] 135 mmol/L 136-145 [facility] WBC (Bld) [#/Vol] 11.3 10*3/uL 4.4-11.0 [facility] Basophil percentage 10-25 SEEN /hpf 0-5 [facility] Bilirubin Test strip Ql (U)O rdered By: Sam Pearl on 02-04-2024 Bilirubin Ql (U) Negative Negative [facility] Determination of erythrocyte mean corpuscular volume (MCV)Ordered By: Sam Pearl on 02-04-2024 MCV (RBC) [Entitic vol] 89.5 fL 81-99 [facility] Erythrocyte distribution wid th ratioOrdered By: Sam Pearl on 02-04-2024 Erythrocyte distribution width (RBC) [Ratio] 13.2 % 11.6-14.6 [facility] Erythrocyte distribution wid th standard deviationOrdered By: Sam Pearl on 02-04-2024 Erythrocyte distribution width (RBC) [Entitic vol] 43.2 fL 35.1-43.9 [facility] Hematocrit Auto (Bld) [Volum e fraction]Ordered By: Sam Pearl on 02-04-2024 Hematocrit (Bld) [Volume fraction] 34.2 % 37-47 [facility] Immature granulocytes/100 WB C Auto (Bld)Ordered By: Sam Pearl on 02-04-2024 Immature granulocytes/100 WBC (Bld) 1.300 % 0.0-0.9 [facility] Comment on above: IG% - Immature Granu locytes (promyelocytes, myelocytes and metamyelocytes) > 1% indicates that a LEFT SHIFT is Present. Ketones Test strip Ql (U)Ord ered By: Sam Pearl on 02-04-2024 Ketones Ql (U) Negative Negative [facility] Laboratory - Chemistry and C hemistry - challengeOrdered By: Sam Pearl on 02-04-2024 CO2 [Moles/Vol] 21.0 mmol/L 21.0-32.0 [facility] Urea nitrogen/Creatinine [Mass ratio] 15.0 mg/mg 10-20 [facility] Laboratory - Hematology and Cell countsOrdered By: Sam Pearl on 02-04-2024 MCH (RBC) [Entitic mass] 29.3 pg 27.0-32.0 [facility] MCHC (RBC) [Mass/Vol] 32.7 g/dL 32-36 [facility] Nucleated RBC/100 WBC (Bld) [Ratio] 0 % 0-5 [facility] Platelet mean volume (Bld) [Entitic vol] 9.2 fL 6.2-12.0 [facility] Platelets (Bld) [#/Vol] 203 10*3/uL 150-450 [facility] Laboratory - Microbiology an d Antimicrobial susceptibilityOrdered By: Sam Pearl on 02-04-2024 SARS-CoV-2 (COVID-19) RNA ALLYSON+probe Ql (Unsp spec) [facility] Mucus LM Ql (Urine sed)Order ed By: Sam Pearl on 02-04-2024 Mucus Ql (Urine sed) 0 SEEN /hpf [facility] Nitrite Test strip Ql (U)Ord ered By: Sam Pearl on 02-04-2024 Nitrite Ql (U) Negative Negative [facility] No Panel InformationOrdered By: Sam Pearl on 02-04-2024 Estimated Creatinine Clearance Calc 116.68 ml/min [facility] Estimated GFR (MDRD) Amer 92 mL/min >60 [facility] Comment on above: GFR Calc Estimated GFR (MDRD) Non-Af Amer 76 mL/min >60 [facility] Comment on above: Non- GFR Calc Urine RBC 0-5 SEEN /hpf 0-5 [facility] Protein Test strip Ql (U)Ord ered By: Sam Pearl on 02-04-2024 Protein Ql (U) 15 mg/dl Negative [facility] RBC Auto (Bld) [#/Vol]Ordere d By: Sam Pearl on 02-04-2024 RBC (Bld) [#/Vol] 3.82 10*6/uL 4.2-5.4 [facility] Serum or plasma calcium sharron urement (mass/volume)Ordered By: Sam Pearl on 02-04-2024 Calcium [Mass/Vol] 8.4 mg/dL 8.5-10.1 [facility] Serum or plasma creatinine m easurement (mass/volume)Ordered By: Sam Pearl on 02-04-2024 Creatinine [Mass/Vol] 0.87 mg/dL 0.55-1.02 [facility] Comment on above: The validity of the calculated GFR & GFRAA in patients over 70 years has not been determined. Clinical correlation is essential. Serum or plasma urea nitroge n measurement (mass/volume)Ordered By: Sam Pearl on 02-04-2024 Urea nitrogen [Mass/Vol] 13 mg/dL 7-18 [facility] Squamous epithelial cells de tection in urine sediment by light microscopyOrdered By: Sam Pearl on 02-04-2024 Epithelial cells.squamous LM Ql (Urine sed) 0-5 SEEN /hpf 5-10 [facility] Thin prep Papanicolaou smear with manual screeningOrdered By: Sam Pearl on 02-04-2024 Thin prep Papanicolaou smear with manual screening 8 5-15 [facility] Urine blood detectionOrdered By: Sam Pearl on 02-04-2024 RBC Ql (U) 10 /ul Negative [facility] Urine clarityOrdered By: Ramses Pearl on 02-04-2024 Clarity (U) Clear Clear [facility] Urine color determinationOrd ered By: Sam Pearl on 02-04-2024 Color (U) Yellow Yellow [facility] Urine glucose detectionOrder ed By: Sam Pearl on 02-04-2024 Glucose Ql (U) Normal mg/dl Normal [facility] Urine leukocyte esterase det ection by dipstickOrdered By: Sam Pearl on 02-04-2024 Leukocyte esterase Test strip Ql (U) 100 /ul Negative [facility] Urine pHOrdered By: Sam Pearl on 02-04-2024 pH (U) 7.0 [pH] 5.0 - 8.0 [facility] Urine sediment bacteria coun t by microscopy (number/high power field)Ordered By: Sam Pearl on 02-04-2024 Bacteria LM.HPF (Urine sed) [#/Area] 4 /[HPF] None Seen [facility] Urine specific gravity measu rementOrdered By: Sam Pearl on 02-04-2024 Specific gravity (U) [Rel density] 1.010 1.002-1.030 [facility] Urine urobilinogen measureme ntOrdered By: Sam Pearl on 02-04-2024 Urobilinogen Ql (U) Normal mg/dl Normal [facility] Absolute lymphocyte countOrd ered By: Ivette Grimes on 12-06-2023 Lymphocytes Auto (Unsp spec) [#/Vol] 2.89 10*3/uL 0.83-4.51 [facility] Automated lymphocyte count a s percentage of total leukocytesOrdered By: Ivette Grimes on 12-06-2023 Lymphocytes/100 WBC Auto (Unsp spec) 27.0 % 19-41 [facility] Basophil percentageOrdered B y: Ivette Grimes on 12-06-2023 Basophils/100 WBC (Bld) 0.7 % 0-1 [facility] Bilirubin [Mass/Vol] 0.50 mg/dL 0.20-1.00 [facility] Comment on above: For patients on eltr ombopag therapy, use of Dimension [place] TBIL is not recommended. Chloride [Moles/Vol] 113 mmol/L 98-107 [facility] Cholesterol [Mass/Vol] 202 mg/dL <200 [facility] Comment on above: <200 mg/dL Desirable 200-240 mg/dL Borderline >240 mg/dL High Risk Eosinophils/100 WBC (Bld) 1.4 % 0-5 [facility] Glucose [Mass/Vol] 113 mg/dL 74-106 [facility] Comment on above: Fasting Glucose resu lt from 100 to 125 mg/dL suggests IMPAIRED HOMEOSTASIS per A.D.A. criteria. Hemoglobin (Bld) [Mass/Vol] 13.1 g/dL 12.0-15.0 [facility] Monocytes/100 WBC (Bld) 3.6 % 0-10 [facility] Neutrophils (Bld) [#/Vol] 7.1 10*3/uL 2.0-7.7 [facility] Neutrophils/100 WBC (Bld) 66.3 % 47-70 [facility] Potassium [Moles/Vol] 4.0 mmol/L 3.5-5.1 [facility] Protein [Mass/Vol] 8.7 g/dL 6.4-8.2 [facility] Sodium [Moles/Vol] 138 mmol/L 136-145 [facility] Triglyceride [Mass/Vol] 192 mg/dL <199 [facility] Comment on above: The drugs N-Acetylcy steine and Metamizole may falsely depress this assay.Serum Triglycerides Reference Interval Normal <150 mg/dL Borderline high 150 - 199 mg/dL High 200 - 499 mg/dL Very High > or = 500 mg/dL WBC (Bld) [#/Vol] 10.7 10*3/uL 4.4-11.0 [facility] Determination of erythrocyte mean corpuscular volume (MCV)Ordered By: Ivette Grimes on 12-06-2023 MCV (RBC) [Entitic vol] 92.8 fL 81-99 [facility] Erythrocyte distribution wid th ratioOrdered By: Ivette Grimes on 12-06-2023 Erythrocyte distribution width (RBC) [Ratio] 13.1 % 11.6-14.6 [facility] Erythrocyte distribution wid th standard deviationOrdered By: Ivette Grimes on 12-06-2023 Erythrocyte distribution width (RBC) [Entitic vol] 44.4 fL 35.1-43.9 [facility] Hematocrit Auto (Bld) [Volum e fraction]Ordered By: Ivette Grimes on 12-06-2023 Hematocrit (Bld) [Volume fraction] 39.9 % 37-47 [facility] Immature granulocytes/100 WB C Auto (Bld)Ordered By: Ivette Grimes on 12-06-2023 Immature granulocytes/100 WBC (Bld) 1.000 % 0.0-0.9 [facility] Comment on above: IG% - Immature Granu locytes (promyelocytes, myelocytes and metamyelocytes) > 1% indicates that a LEFT SHIFT is Present. Laboratory - Chemistry and C hemistry - challengeOrdered By: Ivette Grimes on 12-06-2023 Albumin/Globulin [Mass ratio] 0.9 {ratio} 0.9-2.4 [facility] ALP [Catalytic activity/Vol] 80 U/L 45-117 [facility] ALT [Catalytic activity/Vol] 24 U/L 13-56 [facility] Cholesterol in HDL (Body fld) [Mass/Vol] 36 mg/dL >40 [facility] Comment on above: The drugs N-Acetylcy steine and Metamizole may falsely depress this assay. Reference Range HDL <40 mg/dL Low HDL Cholesterol HDL >or= 60 mg/dL High HDL Cholesterol Cholesterol in LDL (Body fld) [Moles/Vol] 128 mg/dL 0-130 [facility] Cholesterol in VLDL Calc [Moles/Vol] 38 mg/dL 5-40 [facility] CO2 [Moles/Vol] 19.0 mmol/L 21.0-32.0 [facility] Globulin (S) [Mass/Vol] 4.6 g/dL 2.2-4.2 [facility] Urea nitrogen/Creatinine [Mass ratio] 25.9 mg/mg 10-20 [facility] Laboratory - Hematology and Cell countsOrdered By: Ivette Grimes on 12-06-2023 MCH (RBC) [Entitic mass] 30.5 pg 27.0-32.0 [facility] MCHC (RBC) [Mass/Vol] 32.8 g/dL 32-36 [facility] Nucleated RBC/100 WBC (Bld) [Ratio] 0 % 0-5 [facility] Platelets (Bld) [#/Vol] 241 10*3/uL 150-450 [facility] No Panel InformationOrdered By: Ivette Grimes on 12-06-2023 Estimated GFR (MDRD) Amer 90 mL/min >60 [facility] Comment on above: GFR Calc Estimated GFR (MDRD) Non-Af Amer 74 mL/min >60 [facility] Comment on above: Non- GFR Calc Platelet mean volume Jose-Ec ker (Bld) [Entitic vol]Ordered By: Ivette Grimes on 12-06-2023 Platelet mean volume (Bld) [Entitic vol] 8.8 fL 6.2-12.0 [facility] RBC Auto (Bld) [#/Vol]Ordere d By: Ivette Grimes on 12-06-2023 RBC (Bld) [#/Vol] 4.30 10*6/uL 4.2-5.4 [facility] Serum or plasma calcium sharron urement (mass/volume)Ordered By: Ivette Grimes on 12-06-2023 Calcium [Mass/Vol] 9.1 mg/dL 8.5-10.1 [facility] Serum or plasma creatinine m easurement (mass/volume)Ordered By: Ivette Grimes on 12-06-2023 Creatinine [Mass/Vol] 0.89 mg/dL 0.55-1.02 [facility] Comment on above: The validity of the calculated GFR & GFRAA in patients over 70 years has not been determined. Clinical correlation is essential. Serum or plasma urea nitroge n measurement (mass/volume)Ordered By: Ivette Grimes on 12-06-2023 Urea nitrogen [Mass/Vol] 23 mg/dL 7-18 [facility] Thin prep Papanicolaou smear with manual screeningOrdered By: Ivette Grimes on 12-06-2023 Thin prep Papanicolaou smear with manual screening 4.1 g/dL 3.2-5.0 [facility] Thin prep Papanicolaou smear with manual screening 11 U/L 15-37 [facility] Thin prep Papanicolaou smear with manual screening 6 5-15 [facility] Whole blood hemoglobin A1c/t otal hemoglobin ratio (mass fraction)Ordered By: Ivette Grimes on 12-06-2023 HbA1c (Bld) [Mass fraction] 5.7 % 3.8-5.6 [facility] Comment on above: Normal < 5.7 % Predi abetic 5.7 - 6.4 % Diabetic >or= 6.5 % Please note range changes. Glucose Glucometer (BldC) [M ass/Vol]Ordered By: Sosa Mendez on 08-07-2023 Glucose [Mass/Vol] 157 mg/dL 74-106 [facility] Comment on above: MANAGEMENT OF PATIEN T CARE PER NURSING PROTOCOL Absolute lymphocyte countOrd ered By: Sosa Mendez on 08-06-2023 Lymphocytes Auto (Unsp spec) [#/Vol] 2.45 10*3/uL 0.83-4.51 [facility] Basophil percentageOrdered B y: Sosa Mendez on 08-06-2023 Basophils/100 WBC (Bld) 0.8 % 0-1 [facility] Chloride [Moles/Vol] 111 mmol/L 98-107 [facility] Cholesterol [Mass/Vol] 173 mg/dL <200 [facility] Comment on above: <200 mg/dL Desirable 200-240 mg/dL Borderline >240 mg/dL High Risk Eosinophils/100 WBC (Bld) 3.1 % 0-5 [facility] Glucose [Mass/Vol] 143 mg/dL 74-106 [facility] Comment on above: Fasting Glucose resu lt greater than or equal to 126 mg/dL suggests DIABETES MELLITUS per A.D.A. criteria. Neutrophils (Bld) [#/Vol] 3.9 10*3/uL 2.0-7.7 [facility] Neutrophils/100 WBC (Bld) 54.5 % 47-70 [facility] Potassium [Moles/Vol] 3.6 mmol/L 3.5-5.1 [facility] Sodium [Moles/Vol] 139 mmol/L 136-145 [facility] Triglyceride [Mass/Vol] 325 mg/dL <199 [facility] Comment on above: The drugs N-Acetylcy steine and Metamizole may falsely depress this assay.Serum Triglycerides Reference Interval Normal <150 mg/dL Borderline high 150 - 199 mg/dL High 200 - 499 mg/dL Very High > or = 500 mg/dL WBC (Bld) [#/Vol] 7.1 10*3/uL 4.4-11.0 [facility] Blood erythrocytes count (nu mber/volume)Ordered By: Sosa Mendez on 08-06-2023 RBC (Bld) [#/Vol] 4.15 10*6/uL 4.2-5.4 [facility] Blood hemoglobin measurement (mass/volume)Ordered By: Sosa Mendez on 08-06-2023 Hemoglobin (Bld) [Mass/Vol] 13.0 g/dL 12.0-15.0 [facility] Blood lymphocytes/100 leukoc ytesOrdered By: Sosa Mendez on 08-06-2023 Lymphocytes/100 WBC (Bld) 34.4 % 19-41 [facility] Blood monocytes/100 leukocyt esOrdered By: Sosa Mendez on 08-06-2023 Monocytes/100 WBC (Bld) 5.2 % 0-10 [facility] Blood platelet mean volumeOr dered By: Sosa Mendez on 08-06-2023 Platelet mean volume (Bld) [Entitic vol] 9.4 fL 6.2-12.0 [facility] Determination of erythrocyte mean corpuscular volume (MCV)Ordered By: Sosa Mendez on 08-06-2023 MCV (RBC) [Entitic vol] 95.4 fL 81-99 [facility] Hematocrit Auto (Bld) [Volum e fraction]Ordered By: Sosa Mendez on 08-06-2023 Hematocrit (Bld) [Volume fraction] 39.6 % 37-47 [facility] Laboratory - Chemistry and C hemistry - challengeOrdered By: Sosa Mendez on 08-06-2023 CO2 [Moles/Vol] 23.0 mmol/L 21.0-32.0 [facility] Urea nitrogen/Creatinine [Mass ratio] 15.4 mg/mg 10-20 [facility] Laboratory - Hematology and Cell countsOrdered By: Sosa Mendez on 08-06-2023 Erythrocyte distribution width (RBC) [Entitic vol] 45.4 fL 35.1-43.9 [facility] Erythrocyte distribution width (RBC) [Ratio] 13.0 % 11.6-14.6 [facility] Immature granulocytes/100 WBC (Bld) 2.000 % 0.0-0.9 [facility] Comment on above: IG% - Immature Granu locytes (promyelocytes, myelocytes and metamyelocytes) > 1% indicates that a LEFT SHIFT is Present. MCH (RBC) [Entitic mass] 31.3 pg 27.0-32.0 [facility] Nucleated RBC/100 WBC (Bld) [Ratio] 0 % 0-5 [facility] MCHC Auto (RBC) [Mass/Vol]Or dered By: Sosa Mendez on 08-06-2023 MCHC (RBC) [Mass/Vol] 32.8 g/dL 32-36 [facility] No Panel InformationOrdered By: Sosa Mendez on 08-06-2023 Estimated Creatinine Clearance Calc 92.30 ml/min [facility] Estimated GFR (MDRD) Amer 104 mL/min >60 [facility] Comment on above: GFR Calc Estimated GFR (MDRD) Non-Af Amer 86 mL/min >60 [facility] Comment on above: Non- GFR Calc Platelets bldOrdered By: Shanell Mendez on 08-06-2023 Platelets (Bld) [#/Vol] 184 10*3/uL 150-450 [facility] Serum or plasma calcium sharron urement (mass/volume)Ordered By: Sosa Mendez on 08-06-2023 Calcium [Mass/Vol] 8.2 mg/dL 8.5-10.1 [facility] Serum or plasma cholesterol in HDL measurement (mass/volume)Ordered By: Sosa Mendez on 08-06-2023 Cholesterol in HDL [Mass/Vol] 29 mg/dL >40 [facility] Comment on above: The drugs N-Acetylcy steine and Metamizole may falsely depress this assay. Reference Range HDL <40 mg/dL Low HDL Cholesterol HDL >or= 60 mg/dL High HDL Cholesterol Serum or plasma cholesterol in VLDL measurement (mass/volume)Ordered By: Sosa Mendez on 08-06-2023 Cholesterol in VLDL [Mass/Vol] 65 mg/dL 5-40 [facility] Serum or plasma creatinine m easurement (mass/volume)Ordered By: Sosa Mendez on 08-06-2023 Creatinine [Mass/Vol] 0.78 mg/dL 0.55-1.02 [facility] Comment on above: The validity of the calculated GFR & GFRAA in patients over 70 years has not been determined. Clinical correlation is essential. Serum or plasma low density lipoprotein (LDL) cholesterol measurement (mass/volume)Ordered By: Sosa Mendez on 08-06-2023 Cholesterol in LDL [Mass/Vol] 79 mg/dL 0-130 [facility] Serum or plasma urea nitroge n measurement (mass/volume)Ordered By: Sosa Mendez on 08-06-2023 Urea nitrogen [Mass/Vol] 12 mg/dL 7-18 [facility] Thin prep Papanicolaou smear with manual screeningOrdered By: Sosa Mendez on 08-06-2023 Thin prep Papanicolaou smear with manual screening 5 5-15 [facility] Absolute lymphocyte countOrd ered By: Niurka Kendall on 08-05-2023 Lymphocytes Auto (Unsp spec) [#/Vol] 2.33 10*3/uL 0.83-4.51 [facility] Basophil percentageOrdered B y: Niurka Kendall on 08-05-2023 Basophils/100 WBC (Bld) 0.9 % 0-1 [facility] Chloride [Moles/Vol] 110 mmol/L 98-107 [facility] Eosinophils/100 WBC (Bld) 2.6 % 0-5 [facility] Glucose [Mass/Vol] 108 mg/dL 74-106 [facility] Comment on above: Fasting Glucose resu lt from 100 to 125 mg/dL suggests IMPAIRED HOMEOSTASIS per A.D.A. criteria. Neutrophils (Bld) [#/Vol] 4.7 10*3/uL 2.0-7.7 [facility] Neutrophils/100 WBC (Bld) 59.9 % 47-70 [facility] Potassium [Moles/Vol] 3.7 mmol/L 3.5-5.1 [facility] Sodium [Moles/Vol] 140 mmol/L 136-145 [facility] WBC (Bld) [#/Vol] 7.8 10*3/uL 4.4-11.0 [facility] Blood erythrocytes count (nu mber/volume)Ordered By: Niurka Kendall on 08-05-2023 RBC (Bld) [#/Vol] 4.04 10*6/uL 4.2-5.4 [facility] Blood hemoglobin measurement (mass/volume)Ordered By: Niurka Kendall on 08-05-2023 Hemoglobin (Bld) [Mass/Vol] 12.9 g/dL 12.0-15.0 [facility] Blood lymphocytes/100 leukoc ytesOrdered By: Niurka Kendall on 08-05-2023 Lymphocytes/100 WBC (Bld) 30.1 % 19-41 [facility] Blood monocytes/100 leukocyt esOrdered By: Niurka Kendall on 08-05-2023 Monocytes/100 WBC (Bld) 5.2 % 0-10 [facility] Blood platelet mean volumeOr dered By: Niurka Kendall on 08-05-2023 Platelet mean volume (Bld) [Entitic vol] 9.7 fL 6.2-12.0 [facility] COVID-19 virus antigen assay Ordered By: Niurka Kendall on 08-05-2023 SARS-CoV-2 (COVID-19) Ag IA.rapid Ql (Resp) [facility] SARS-CoV-2 (COVID-19) Ag IA.rapid Ql (Resp) [facility] Determination of erythrocyte mean corpuscular volume (MCV)Ordered By: Niurka Kendall on 08-05-2023 MCV (RBC) [Entitic vol] 97.8 fL 81-99 [facility] Glucose Glucometer (dC) [M ass/Vol]Ordered By: Niurka Kendall on 08-05-2023 Glucose [Mass/Vol] 120 mg/dL 74-106 [facility] Comment on above: MANAGEMENT OF PATIEN T CARE PER NURSING PROTOCOL Hematocrit Auto (Bld) [Volum e fraction]Ordered By: Niurka Kendall on 08-05-2023 Hematocrit (Bld) [Volume fraction] 39.5 % 37-47 [facility] INR in Blood by Coagulation assayOrdered By: Niurka Kendall on 08-05-2023 INR Coag (Bld) [Relative time] 1.1 {INR} [facility] Laboratory - Chemistry and C hemistry - challengeOrdered By: Niurka Kendall on 08-05-2023 CO2 [Moles/Vol] 24.0 mmol/L 21.0-32.0 [facility] Urea nitrogen/Creatinine [Mass ratio] 20.8 mg/mg 10-20 [facility] Laboratory - CoagulationOrde red By: Niurka Kendall on 08-05-2023 aPTT Coag (Bld) [Time] 32.7 s 24.1-36.2 [facility] PT Coag (PPP) [Time] 14.4 s 11.7-14.9 [facility] Laboratory - Hematology and Cell countsOrdered By: Niurka Kendall on 08-05-2023 Erythrocyte distribution width (RBC) [Entitic vol] 47.0 fL 35.1-43.9 [facility] Erythrocyte distribution width (RBC) [Ratio] 13.1 % 11.6-14.6 [facility] Immature granulocytes/100 WBC (Bld) 1.300 % 0.0-0.9 [facility] Comment on above: IG% - Immature Granu locytes (promyelocytes, myelocytes and metamyelocytes) > 1% indicates that a LEFT SHIFT is Present. MCH (RBC) [Entitic mass] 31.9 pg 27.0-32.0 [facility] Nucleated RBC/100 WBC (Bld) [Ratio] 0 % 0-5 [facility] MCHC Auto (RBC) [Mass/Vol]Or dered By: Niurka Kendall on 08-05-2023 MCHC (RBC) [Mass/Vol] 32.7 g/dL 32-36 [facility] No Panel InformationOrdered By: Niurka Kendall on 08-05-2023 Estimated Creatinine Clearance Calc 99.99 ml/min [facility] Estimated GFR (MDRD) Amer 115 mL/min >60 [facility] Comment on above: GFR Calc Estimated GFR (MDRD) Non-Af Amer 95 mL/min >60 [facility] Comment on above: Non- GFR Calc Thyroid Stimulating Hormone (TSH) 1.54 uIU/mL 0.358-3.74 [facility] Troponin I High Sensitivity 4 pg/mL 3.0-54.0 [facility] Comment on above: Please Note: New Ananth t Units and Gender Specific Reference Ranges. For more information see Policy Stat Procedure [place] High Sensitivity Troponin (TNIH) and attachments. Platelets bldOrdered By: Romina Kendall on 08-05-2023 Platelets (Bld) [#/Vol] 190 10*3/uL 150-450 [facility] Serum or plasma calcium sharron urement (mass/volume)Ordered By: Niurka Kendall on 08-05-2023 Calcium [Mass/Vol] 8.5 mg/dL 8.5-10.1 [facility] Serum or plasma creatinine m easurement (mass/volume)Ordered By: Niurka Kendall on 08-05-2023 Creatinine [Mass/Vol] 0.72 mg/dL 0.55-1.02 [facility] Comment on above: The validity of the calculated GFR & GFRAA in patients over 70 years has not been determined. Clinical correlation is essential. Serum or plasma urea nitroge n measurement (mass/volume)Ordered By: Niurka Kendall on 08-05-2023 Urea nitrogen [Mass/Vol] 15 mg/dL 7-18 [facility] Thin prep Papanicolaou smear with manual screeningOrdered By: Niurka Kendall on 08-05-2023 Thin prep Papanicolaou smear with manual screening 6 5-15 [facility] Whole blood hemoglobin A1c/t otal hemoglobin ratio (mass fraction)Ordered By: Sosa Mendez on 08-05-2023 HbA1c (Bld) [Mass fraction] 6.6 % 3.8-5.6 [facility] Comment on above: Normal < 5.7 % Predi abetic 5.7 - 6.4 % Diabetic >or= 6.5 % Please note range changes. XR Foot - right AP and Later al and obliqueon 05-28-2023 IMPRESSION: No acute osseous abnormalities are identified. Calcaneal spurring. 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 COMPARISON: None available. RESULT: No fracture, dislocation or destructive changes. Joint spaces and articular surfaces are preserved. Calcaneal spurring is noted with plantar and calcaneal enthesophytes. DIVISION OF RADIOLOGY Provider, [facility] [place] - 05/28/2023 * * *Final Report* * * DATE OF EXAM: May 28 2023 11:53AM WOX [id number] - XR FOOT 3V AP/LAT/OBL RT / PROCEDURE REASON: Pain of right heel * * * * Physician Interpretation * * * * RIGHT FOOT X-RAY SERIES HISTORY: Pain of right heel TECHNIQUE: AP, lateral and oblique views. COMPARISON: None available. RESULT: No fracture, dislocation or destructive changes. Joint spaces and articular surfaces are preserved. Calcaneal spurring is noted with plantar and calcaneal enthesophytes. IMPRESSION IMPRESSION: No acute osseous abnormalities are identified. Calcaneal spurring. 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 Grimes on 03-04-2023 Lymphocytes Auto (Unsp spec) [#/Vol] 2.34 10*3/uL 0.83-4.51 [facility] Basophil percentageOrdered B y: Dr. Grimes on 03-04-2023 Basophils/100 WBC (Bld) 1.0 % 0-1 [facility] Chloride [Moles/Vol] 109 mmol/L 98-107 [facility] Eosinophils/100 WBC (Bld) 2.3 % 0-5 [facility] Glucose [Mass/Vol] 142 mg/dL 74-106 [facility] Comment on above: Fasting Glucose resu lt greater than or equal to 126 mg/dL suggests DIABETES MELLITUS per A.D.A. criteria. Neutrophils (Bld) [#/Vol] 5.6 10*3/uL 2.0-7.7 [facility] Neutrophils/100 WBC (Bld) 63.9 % 47-70 [facility] Potassium [Moles/Vol] 3.9 mmol/L 3.5-5.1 [facility] Sodium [Moles/Vol] 138 mmol/L 136-145 [facility] WBC (Bld) [#/Vol] 8.8 10*3/uL 4.4-11.0 [facility] Blood erythrocytes count (nu mber/volume)Ordered By: Dr. Grimes on 03-04-2023 RBC (Bld) [#/Vol] 4.38 10*6/uL 4.2-5.4 [facility] Blood hemoglobin measurement (mass/volume)Ordered By: Dr. Grimes on 03-04-2023 Hemoglobin (Bld) [Mass/Vol] 14.1 g/dL 12.0-15.0 [facility] Blood lymphocytes/100 leukoc ytesOrdered By: Dr. Grimes on 03-04-2023 Lymphocytes/100 WBC (Bld) 26.5 % 19-41 [facility] Blood monocytes/100 leukocyt esOrdered By: Dr. Grimes on 03-04-2023 Monocytes/100 WBC (Bld) 4.6 % 0-10 [facility] Blood platelet mean volumeOr dered By: Dr. Grimes on 03-04-2023 Platelet mean volume (Bld) [Entitic vol] 9.5 fL 6.2-12.0 [facility] Determination of erythrocyte mean corpuscular volume (MCV)Ordered By: Dr. Grimes on 03-04-2023 MCV (RBC) [Entitic vol] 96.8 fL 81-99 [facility] Hematocrit Auto (Bld) [Volum e fraction]Ordered By: Dr. Grimes on 03-04-2023 Hematocrit (Bld) [Volume fraction] 42.4 % 37-47 [facility] Iron measurement (mass/mass) Ordered By: Dr. Grimes on 03-04-2023 Iron (Unsp spec) [Mass/Mass] 92 ug/dL 50-170 [facility] Laboratory - Chemistry and C hemistry - challengeOrdered By: Dr. Grimes on 03-04-2023 CO2 [Moles/Vol] 21.0 mmol/L 21.0-32.0 [facility] Magnesium [Mass/Vol] 1.7 mg/dL 1.6-2.6 [facility] Urea nitrogen/Creatinine [Mass ratio] 17.1 mg/mg 10-20 [facility] Laboratory - Hematology and Cell countsOrdered By: Dr. Grimes on 03-04-2023 Erythrocyte distribution width (RBC) [Entitic vol] 48.1 fL 35.1-43.9 [facility] Erythrocyte distribution width (RBC) [Ratio] 13.3 % 11.6-14.6 [facility] Immature granulocytes/100 WBC (Bld) 1.700 % 0.0-0.9 [facility] Comment on above: IG% - Immature Granu locytes (promyelocytes, myelocytes and metamyelocytes) > 1% indicates that a LEFT SHIFT is Present. MCH (RBC) [Entitic mass] 32.2 pg 27.0-32.0 [facility] Nucleated RBC/100 WBC (Bld) [Ratio] 0 % 0-5 [facility] MCHC Auto (RBC) [Mass/Vol]Or dered By: Dr. Grimes on 03-04-2023 MCHC (RBC) [Mass/Vol] 33.3 g/dL 32-36 [facility] No Panel InformationOrdered By: Dr. Grimes on 03-04-2023 Urine Microalbumin/Creatinine Ratio 63.0 mg/g CRE <30 [facility] Estimated GFR (MDRD) Amer 99 mL/min >60 [facility] Comment on above: GFR Calc Estimated GFR (MDRD) Non-Af Amer 82 mL/min >60 [facility] Comment on above: Non- GFR Calc Total Iron Binding Capacity 323 ug/dL 250-450 [facility] Platelets bldOrdered By: Dr. Grimes on 03-04-2023 Platelets (Bld) [#/Vol] 214 10*3/uL 150-450 [facility] Serum or plasma calcium sharron urement (mass/volume)Ordered By: Dr. Grimes on 03-04-2023 Calcium [Mass/Vol] 8.4 mg/dL 8.5-10.1 [facility] Serum or plasma creatinine m easurement (mass/volume)Ordered By: Dr. Grimes on 03-04-2023 Creatinine [Mass/Vol] 0.82 mg/dL 0.55-1.02 [facility] Comment on above: The validity of the calculated GFR & GFRAA in patients over 70 years has not been determined. Clinical correlation is essential. Serum or plasma iron saturat ion measurement (mass fraction)Ordered By: Dr. Grimes on 03-04-2023 Iron saturation [Mass fraction] 28.5 % 15.0-55.0 [facility] Serum or plasma urea nitroge n measurement (mass/volume)Ordered By: Dr. Grimes on 03-04-2023 Urea nitrogen [Mass/Vol] 14 mg/dL 7-18 [facility] Thin prep Papanicolaou smear with manual screeningOrdered By: Dr. Grimes on 03-04-2023 Thin prep Papanicolaou smear with manual screening 133.0 mg/L NO RANGE EST. [facility] Thin prep Papanicolaou smear with manual screening 8 5-15 [facility] Urine creatinine measurement (mass/volume)Ordered By: Dr. Grimes on 03-04-2023 Creatinine (U) [Mass/Vol] 211.00 mg/dL NO RANGE EST. [facility] Whole blood hemoglobin A1c/t otal hemoglobin ratio (mass fraction)Ordered By: Dr. Grimes on 03-04-2023 HbA1c (Bld) [Mass fraction] 6.1 % 3.8-5.6 [facility] Comment on above: Normal < 5.7 % Predi abetic 5.7 - 6.4 % Diabetic >or= 6.5 % Please note range changes. No Panel Informationon 02-28 [facility] CNCOon 01-24-20[address] 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 Interval History: Overall pain and functional disability: improved New Complaints: low back pain She reports low back pain has worsened since a fall, radiates into the left lower limb, buttock and lateral thigh to the knee. Pain Description: Timing: constant, but worse with activity Character: Numb and Tingling Primary Location: LEFT shoulder Radiation: None Exacerbating factors: lifting Relieving factors: unable to pinpoint positions/factors that are mitigating Interferes with: physical activity and work The patient denies difficulty with bowel or bladder control, unintentional weight loss and fevers, chills, or night sweats. Medications Prescribed: Started or modified: none Discontinued: none Maintained at current dosages: Gabapentin 200mg BID (PCP) Topamax 100mg (PCP) Tizanidine 4mg Tylenol arthritis Tolerating Medication: yes Medications helping improve ADL's and Self-care: yes Procedures Performed: DATE PROCEDURE IMPROVEMENT 01/02/2023 LEFT suprascapular NB (Bupi) 70% (01/24/2023 ) Therapies Attended: none Studies Obtained: CT C-spine (relevant findings reported below) Recall: Insurance denied RFA Suprascap. N. States she is allergic to steroids, will develop hives for days SE with Lyrica Current Status: INTAKE PAIN ASSESSMENT 01/03/2023 01/12/2023 Are you having pain associated with your visit today? Yes, Provider notified Yes, Provider notified Pain Scales - - Pain Level 8 5 Pain Location Head - Description Dull Aching;Dull;Pressur e Duration Amount of Time - - Duration Units Weeks Months Frequency Continuous Continuous Intervention/Comfor t measure - - Comments - - Pain Assessment - - Analgesia: partially adequate Risk Assessment: VAHE-7: VAHE - 7 SCORES 03/29/2022 10/05/2022 11/14/2022 VAHE-7 Score 0 8 2 (0-4) minimal anxiety, (5-9) mild anxiety, (10-14) moderate anxiety, (15-21) severe anxiety PHQ-9: PHQ-9 03/29/2022 10/05/2022 11/14/2022 Score 2 16 2 (0-4) minimal depression, (5-9) mild depression, (10-14) moderate depression, (15-19) moderately severe depression, (20-27) severe depression Compliance: PDMP website checked and validated. All prescriptions have been APPROPRIATELY filled. No suspicious activity was identified. 01/24/2023 by Elle Sanchez MD Allergies: ALLERGIES Allergen Reactions Lidocaine Hives Steroids [Betametha* Hives Data Reviewed: Reviewed personally on today's date. Relevant Imaging: CT Cervical Spine 11/2022 MRI Left Shoulder 10/2021 ([facility]) Small GH effusion, small degenerative change posterior-inferior labrum (Per Dr. Greene) MRI of the right shoulder from an outside facility is essentially normal with some minor degenerative labral fraying and a joint effusion. MRI C-Spine 08/2021 ([facility]) Very mild degenerative changes MRI L-spine 08/2021 ([facility]) Very mild degenerative changes. Facet arthropathy at L1-2 through L5-S1. Recent labs: CMP: Glucose 93 08/12/2015 BUN 9 08/12/2015 Creatinine 0.59 08/12/2015 Sodium 136 08/12/2015 Potassium 3.9 08/12/2015 Chloride 97 08/12/2015 CO2 25 08/12/2015 Protein, Total 7.3 08/12/2015 Albumin 4.3 08/12/2015 Calcium 9.0 08/12/2015 Alkaline Phosphatase 62 08/12/2015 Bilirubin, Total 0.6 08/12/2015 AST 23 08/12/2015 ALT 26 08/12/2015 Pain Procedures: DATE PROCEDURE IMPROVEMENT 01/02/2023 LEFT suprascapular NB 70% (01/24/2023 ) 05/09/2022 LEFT suprascapular NB 75% Current Medications, Past Medical History, Past Surgical History, Family History, Social History and Review of Systems: On today's date, noted above, I have confirmed and edited as necessary, the PFSH and ROS obtained by others. Physical Exam: 01/24/23 1023 Pulse: 64 Resp: 16 SpO2: 98% Constitutional: morbidly obese HEENT: Normal Cephalic, Atraumatic, Non-icteric sclera Eyes: Conjunctiva clear. No discharge from eyes Cardiovascular: Appears well perfused Lymphatic: No visible regional lymphadenopathy Skin: No visible rashes or ecchymosis Psychiatric: Full affect, Alert, Pleasant LEFT Shoulder: Inspection: No edema, effusion, erythema, warmth No scapular winging No muscle atrophies Palpation: No tenderness to palpa (more content not included)... Normal [facility] CNPIliana 01-24-2023 CNPN Telephone (SPAGAplos SoftwareO) ---- TORI GRAY ([id number]) 1980 F Date Time Provider Department 01/24/23 ELLE SANCHEZWeGreekNATALIE During your visit today, we recorded the following information about you: Pankaj Murillo 01/24/2023 11:46 AM Signed 1.Are you diabetic Yes. Please list the current medications being prescribed trulicity. 2. Are you on any blood thinners? No 3. Are you taking any aspirin? No 4. Have you had any recent imaging done on your body part that's being injected? No 5. Do you have any allergies to latex? No 6. Do you have any allergies to seafood? No 7. Do you have any allergies to shellfish? No 8. Do you have any allergies to x-ray dye? No 9. Are you taking Xanax for the procedure? No 10. Have you done physical therapy in the last year? No If yes, When and Where? (Medical Records Release needs to be signed.) 11. Were the pre-procedure instructions explained to the patient? Yes, explained and mailed 12. Do you have a pacemaker? No 13. Do you have an internal stimulator of any kind? No If yes, please bring the remote with you to your procedure visit. 14. Have you received the COVID-19 Vaccine? Yes. If yes, date(s) received: explained and mailed (Patient should not receive a procedure including steroids 14 days prior to their first dose of the COVID vaccine. They should not receive any procedure containing steroids in the time frame between their 1st and 2nd doses of the COVID vaccine. They should not receive a procedure containing steroids 14 days after their 2nd dose of the COVID vaccine.) Charay Lidia Allergies As of Date: 01/24/2023 Noted Allergy Reaction LIDOCAINE 12/24/2019 4 - Hives STEROIDS (BETAMETHASONE DIPROPION* 2 4 - Hives Date Reviewed: 01/24/2023 Reviewed by: Elle Sanchez MD - Fully Assessed Reason for Visit: Patient Update [1234] Cmt: Injection questions Prescriptions as of 01/24/2023 - ondansetron (ZOFRAN) 4 mg tablet Take 1 tablet by mouth every 8 hours as needed for nausea/vomiting. - tiZANidine (ZANAFLEX) 4 mg tablet Take 1 tablet by mouth every 8 hours as needed. - topiramate (TOPAMAX) 100 mg tablet Take 1 tablet by mouth twice daily. - meclizine (ANTIVERT) 25 mg tab Take 25 mg by mouth once daily. Takes two tabs in am - rizatriptan (MAXALT) 10 mg tablet Take 1 tablet by mouth as needed (at onset of headache. May repeat after 2 hours.). Do not exceed 30 mg per day. - lisinopril (ZESTRIL, PRINIVIL) 10 mg tablet Take 1 tablet by mouth once daily. - gabapentin (NEURONTIN) 300 mg capsule Take 1 tablet in AM, afternoon and bedtime. If after 2 days symptoms persist, increase to 1 tab in AM, afternoon and 2 tabs at bedtime. - FLUoxetine (PROZAC) 20 mg capsule Take 1 capsule by mouth once daily. - BIPAP - dulaglutide (TRULICITY) 0.75 mg/0.5 mL pen injector Inject 0.75 mg subcutaneously one time a week. Inject dose once per week. Discard Pen After - albuterol HFA (VENTOLIN HFA) 90 mcg/actuation inhaler Inhale 2 Puffs as instructed every 4 hours as needed for wheezing/shortness of breath. - fexofenadine (ALMA ALLERGY) 180 mg tablet Take 1 tablet by mouth once daily. - omeprazole (PRILOSEC) 20 mg capsule Take 1 capsule by mouth daily before breakfast. 1/2 hr before meal. - levonorgestrel (KYLEENA) 17.5 mcg/24 hrs (5 yrs) 19.5 mg IUD 1 Each by INTRAUTERINE route as directed. - Ipratropium [place] (ATROVENT) 0.03 % nasal spray Use 2 Sprays in the nose every 12 hours. - metroNIDAZOLE (METROGEL) 0.75 % Topical Gel Apply to affected area twice daily. - Herrick-3 Fatty Acids (FISH OIL) 500 mg cap Take 1 capsule by mouth once daily. - blood sugar diagnostic (BLOOD GLUCOSE TEST) test strip Test blood sugar(s) 1 times daily. Dx: Type 2 DM - Controlled E11.9 Insulin: Yes - Lancets lancets Test blood sugar(s) 1 times daily. Dx: Type 2 DM - Controlled E11.9 Insulin: No - Ymebftfh-Rv-Ipa-Fe- FA tab Take 1 tablet by mouth once daily. Meds Comments as of 03/01/2019: Percocet March 01, 2019 Stephanie Suresh RN Problem List As Of Date 01/24/2023 Noted Resolved SUPERVIS NORMAL 1ST PREG [Z34.00] 11/09/2005 07/02/2006 TRANS HYPERTEN-ANTEPART [O13.9] 06/19/2006 07/02/2006 KERATOSIS PILARIS////SKIN ANOMALY NEC [Q82.8] 03/26/2007 01/23/2010 Other Acne [L70.8] 03/26/2007 FOLLICULITIS///HAIR DISEASES NEC [L67.8, L73.8] 03/26/2007 01/23/2010 Lichenification and Lichen Simplex Chronicus [L*03/26/2007 01/23/2010 DERMATOFIBROMA///BE NIGN KAILEY SKIN ARM [D23.60] 03/26/2007 01/23/2010 Contact Dermatitis and Other Eczema, due to Uns*03/26/2007 01/23/2010 SACROILIITIS [M46.1] 05/06/2009 01/23/2010 [facility]01/23/2010 12/06/2012 Class: Chronic Routine gynecological examination [Z01.419] 01/23/2010 02/22/2014 Class: Chronic Morbid Obesity [E66.01] 01/23/2010 Lumbar Disc Disorder [M51.9] 02/16/2010 (more content not included)... Normal [facility] HCG ( test) Ql (U)o n 01-02-2023 Specific gravity (U) [Rel density] 1.010 Normal 1.005-1.030 [facility] Comment on above: Order Comment: Speci men Type: URINE SPECIMENOrdering Facility: [facility] Address: [address] [place] [address] Performed By: #### 2 106-3 ####[facility] CITYNightpro [id number] [address] [place] HCG Preg Ur Qlon 01-02-2023 HCG ( test) Ql (U) Negative Normal Negative [facility] Comment on above: Order Comment: Speci men Type: URINE SPECIMENOrdering Facility: [facility] Address: [address] [place] [address] Result Comment: This test is intended to aid in the early detection of . Very dilute urine samples, as indicated by a low specific gravity, may not contain front office representative levels of hCG. This test detects intact hCG only. This test does not reliably detect hCG degradation products, including free-beta subunit and beta-core fragment. Therefore, this test may show reduced reactivity in urine after 8 weeks gestation. A number of conditions other than , including trophoblastic disease and certain non-trophoblastic neoplasms cause elevated levels of hCG. As with any assay employing mouse antibodies, the possibility exists for interference by human anti-mouse antibodies (HAMA) in the specimen. The test provides a presumptive diagnosis for . Performed By: #### 2 106-3 ####[facility] [id number] [place] [id number] [place] HISTORY PHYSICALon HISTORY PHYSICAL HNO ID: [id number] Author: Elle Sanchez MD Service: Pain Management Author Type: Physician Type: HANDP Filed: 01/02/2023 11:00 AM Note Text: LOCAL PROCEDURE HISTORY AND PHYSICAL EXAM SERVICE DATE: 01/02/2023 SERVICE TIME: 11:00 AM Provisional Diagnosis/Treatment Plan: Left Suprascapular Nerve Blockade under Fluoroscopic Guidance for painful adhesive capsulitis. Subjective HPI: This is a 42 year old female who presents with the above-mentioned conditions, here for above-mentioned treatment plan. MEDICATIONS: Prior to Admission medications as of 01/02/23 1100 Medication Sig Last Dose Taking meclizine (ANTIVERT) 25 mg tab Take 25 mg by mouth once daily. Takes two tabs in am 01/02/2023 Yes tiZANidine (ZANAFLEX) 4 mg tablet Take 1 tablet by mouth every 8 hours as needed. 01/01/2023 Yes rizatriptan (MAXALT) 10 mg tablet Take 1 tablet by mouth as needed (at onset of headache. May repeat after 2 hours.). Do not exceed 30 mg per day. 12/30/2022 Yes lisinopril (ZESTRIL, PRINIVIL) 10 mg tablet Take 1 tablet by mouth once daily. 01/02/2023 Yes ondansetron (ZOFRAN) 4 mg tablet Take 1 tablet by mouth every 8 hours as needed for nausea/vomiting. 01/01/2023 Yes gabapentin (NEURONTIN) 300 mg capsule Take 1 tablet in AM, afternoon and bedtime. If after 2 days symptoms persist, increase to 1 tab in AM, afternoon and 2 tabs at bedtime. 01/02/2023 Yes FLUoxetine (PROZAC) 20 mg capsule Take 1 capsule by mouth once daily. 01/01/2023 Yes BIPAP Yes topiramate (TOPAMAX) 100 mg tablet Take 1 tablet by mouth twice daily. 01/02/2023 Yes dulaglutide (TRULICITY) 0.75 mg/0.5 mL pen injector Inject 0.75 mg subcutaneously one time a week. Inject dose once per week. Discard Pen After 01/01/2023 Yes albuterol HFA (VENTOLIN HFA) 90 mcg/actuation inhaler Inhale 2 Puffs as instructed every 4 hours as needed for wheezing/shortness of breath. Yes fexofenadine (ALMA ALLERGY) 180 mg tablet Take 1 tablet by mouth once daily. 01/02/2023 Yes omeprazole (PRILOSEC) 20 mg capsule Take 1 capsule by mouth daily before breakfast. 1/2 hr before meal. Unknown Yes Ipratropium [place] (ATROVENT) 0.03 % nasal spray Use 2 Sprays in the nose every 12 hours. Unknown Yes Herrick-3 Fatty Acids (FISH OIL) 500 mg cap Take 1 capsule by mouth once daily. Patient taking differently: Take 1 tablet by mouth once daily. 1200 mg 01/02/2023 Yes blood sugar diagnostic (BLOOD GLUCOSE TEST) test strip Test blood sugar(s) 1 times daily. Dx: Type 2 DM - Controlled E11.9 Insulin: Yes Yes Babjbwlv-Qi-Jtg-Fe- FA tab Take 1 tablet by mouth once daily. 01/01/2023 Yes levonorgestrel (KYLEENA) 17.5 mcg/24 hrs (5 yrs) 19.5 mg IUD 1 Each by INTRAUTERINE route as directed. metroNIDAZOLE (METROGEL) 0.75 % Topical Gel Apply to affected area twice daily. Unknown Lancets lancets Test blood sugar(s) 1 times daily. Dx: Type 2 DM - Controlled E11.9 Insulin: No ALLERGIES Allergen Reactions Lidocaine Hives Steroids [Betametha* Hives Objective PHYSICAL EXAM: The remainder of the physical exam is noncontributory. GENERAL: Alert, no distress, cooperative LUNGS: Lungs clear to auscultation, Good diaphragmatic excursion CARDIAC: Normal S1 and S2; no rubs, murmurs, or gallops NEURO: Gait normal. Reflexes normal and symmetric. Sensation grossly intact BP 142/80 Temp 36.6 ?C (97.8 ?F) (Temporal) Resp 22 Ht 170.2 cm (5' 7) Wt 128.4 kg (283 lb) LMP 04/07/2022 (Exact Date) SpO2 98% BMI 44.32 kg/m? PAIN ASSESSMENT: PAIN EVALUATION 01/02/2023 1000 Pain Level: 5 left shoulder; headache 8 Pain Location: -- left shoulder, whole head Description: -- shoulder pain is stabbing; headache pain is aching Assessment/Plan Active Problems: Adhesive capsulitis of left shoulder POA: Yes Assessment AND Plan: Left Suprascapular Nerve Blockade under Fluoroscopic Guidance for painful adhesive capsulitis. Chronic left shoulder pain POA: Yes Assessment AND Plan: Left Suprascapular Nerve Blockade under Fluoroscopic Guidance for painful adhesive capsulitis. Resolved Problems: * No resolved hospital problems. * Medication and Non-Pharmacologic VTE Prophylaxis/Anticoa gulants VTE Prophylaxis: VTE prophylaxis appropriate SIGNATURE: Elle Sanchez MD PATIENT NAME: Tori Gray DATE: January 02, 2023 TIME: 11:[address] [facility] OPERATIVE NOon 01-02-2023 OPERATIVE NO HNO ID: [id number] Author: Elle Sanchez MD Service: Pain Management Author Type: Physician Type: Operative Report Filed: 01/02/2023 11:29 AM Note Text: OPERATIVE/PROCEDURE REPORT LOG ID: [id number] SURGERY/PROCEDURE DATE: 01/02/2023 INCISION/PROCEDURE START TIME: 11:18 AM INCISION CLOSE/PROCEDURE END TIME: 11:25 AM SURGEON(S)/PROCEDUR BRETT(S) AND STAMPS OR COINS SALESPERSON(S): Surgeon(s) and Role: * Elle Sanchez MD - Primary No Additional Staff SURGERY/PROCEDURE(S ): Left Suprascapular nerve blockade under fluoroscopic guidance ANESTHESIA: Local Injectate: A total of 5cc, consisting of 5cc of 0.75% Bupivacaine Due to an allergy to Lidocaine, none was used for local anesthesia of the soft tissue and at the targeted location. SURGERY/PROCEDURE DETAILS: Procedure: The patient was prepped and draped in a sterile fashion in the supine position after informed consent was signed and all patient questions were answered including the risks, benefits, alternative treatment options, and prognosis. The risks are as mentioned above. A single contrast technique was used. After preliminary fluoroscopic images of the shoulder were obtained, the suprascapular notch was localized. A 22 gauge, 5 inch needle was inserted toward the base of the suprascapular notch. Upon reaching bony resistance, the position was confirmed with multiplanar imaging. Subsequently, 1cc of contrast was injected while observing the flow of the contrast, which obtained an excellent flow along the expected path of the suprascapular nerve. The medication noted above was then injected. The needle was withdrawn, and the patient was asked to perform mild exercises including internal and external rotation to promote improvement in range of motion. Appropriate radiographs were obtained with results as described above. PRE-OP/PRE-PROCEDUR E DIAGNOSIS: Painful Adhesive Capsulitis POST-OP/POST-PROCED URE DIAGNOSIS: Same as Preop ESTIMATED BLOOD LOSS: 0 ml SPECIMENS: None IMPLANTABLE DEVICES: NONE DRAINS: None COMPLICATIONS: None CLOSURE TECHNIQUE: Primary PARTICIPATION IN SURGERY/PROCEDURE: I/primary surgeon/procedurali st performed the entire procedure. SIGNATURE: Elle Sanchez MD PATIENT NAME: Tori Peñanett DATE: January 02, 2023 TIME: 11:[address] [facility] CNPNon 11-29-2022 CNPN Telephone (AGSPINE3) ---- TORI GRAY ([id number]) 1980 F Date Time Provider Department 11/29/22 ELLE SANCHEZ AGSPINE3 During your visit today, we recorded the following information about you: Darrion Carson 11/29/2022 2:40 PM Signed Patient has left a voicemail stating that she had fallen over the weekend and has a concussion. She is wondering if she should reschedule her appointment for 12/05/22 with you in [place] as she is not sure if this will effect her. Please advise. Darrion Sanchez MD 11/29/2022 2:51 PM Signed Sorry to hear about the injury. A concussion would not require a cancellation in and of itself. However, if she has concerns that the bright lights of the hospital, travel, sounds, etc., would aggravate her condition, then it would be reasonable to reschedule. Elle Sanchez III, MD, SULEIMAN Darrion Carson 11/30/2022 11:56 AM Signed Patient has decided to reschedule out to January 02 at [place], message has been sent to [place]. Darrion Shah Allergies As of Date: 11/29/2022 Noted Allergy Reaction LIDOCAINE 12/24/2019 4 - Hives STEROIDS (BETAMETHASONE DIPROPION* 2 4 - Hives Date Reviewed: 11/27/2022 Reviewed by: Dennise Robles - Fully Assessed Reason for Visit: Patient Question [7108] Cmt: Juan Ramon appointment on 12/05/22 Prescriptions as of 11/30/2022 - lisinopril (ZESTRIL, PRINIVIL) 5 mg tablet Take 1 tablet by mouth once daily. - gabapentin (NEURONTIN) 100 mg capsule Take 2 capsules by mouth twice daily for 90 days. - tiZANidine (ZANAFLEX) 4 mg tablet Take 1 tablet by mouth every 8 hours as needed. - FLUoxetine (PROZAC) 20 mg capsule Take 1 capsule by mouth once daily. - BIPAP - topiramate (TOPAMAX) 100 mg tablet Take 1 tablet by mouth twice daily. - rizatriptan (MAXALT) 10 mg tablet Take 1 tablet by mouth as needed (at onset of headache. May repeat after 2 hours.). Do not exceed 30 mg per day. - dulaglutide (TRULICITY) 0.75 mg/0.5 mL pen injector Inject 0.75 mg subcutaneously one time a week. Inject dose once per week. Discard Pen After - albuterol HFA (VENTOLIN HFA) 90 mcg/actuation inhaler Inhale 2 Puffs as instructed every 4 hours as needed for wheezing/shortness of breath. - fexofenadine (ALMA ALLERGY) 180 mg tablet Take 1 tablet by mouth once daily. - omeprazole (PRILOSEC) 20 mg capsule Take 1 capsule by mouth daily before breakfast. 1/2 hr before meal. - levonorgestrel (KYLEENA) 17.5 mcg/24 hrs (5 yrs) 19.5 mg IUD 1 Each by INTRAUTERINE route as directed. - Ipratropium [place] (ATROVENT) 0.03 % nasal spray Use 2 Sprays in the nose every 12 hours. - metroNIDAZOLE (METROGEL) 0.75 % Topical Gel Apply to affected area twice daily. - Herrick-3 Fatty Acids (FISH OIL) 500 mg cap Take 1 capsule by mouth once daily. - blood sugar diagnostic (BLOOD GLUCOSE TEST) test strip Test blood sugar(s) 1 times daily. Dx: Type 2 DM - Controlled E11.9 Insulin: Yes - Lancets lancets Test blood sugar(s) 1 times daily. Dx: Type 2 DM - Controlled E11.9 Insulin: No - Vjyxbomh-Qx-Hjx-Fe- FA tab Take 1 tablet by mouth once daily. Meds Comments as of 03/01/2019: Percocet March 01, 2019 Stephanie Suresh RN Problem List As Of Date 11/29/2022 Noted Resolved SUPERVIS NORMAL 1ST PREG [Z34.00] 11/09/2005 07/02/2006 TRANS HYPERTEN-ANTEPART [O13.9] 06/19/2006 07/02/2006 KERATOSIS PILARIS////SKIN ANOMALY NEC [Q82.8] 03/26/2007 01/23/2010 Other Acne [L70.8] 03/26/2007 FOLLICULITIS///HAIR DISEASES NEC [L67.8, L73.8] 03/26/2007 01/23/2010 Lichenification and Lichen Simplex Chronicus [L*03/26/2007 01/23/2010 DERMATOFIBROMA///BE NIGN KAILEY SKIN ARM [D23.60] 03/26/2007 01/23/2010 Contact Dermatitis and Other Eczema, due to Uns*03/26/2007 01/23/2010 SACROILIITIS [M46.1] 05/06/2009 01/23/2010 Routine general medical examination at [facility]*01/23/2010 12/06/2012 Class: Chronic Routine gynecological examination [Z01.419] 01/23/2010 02/22/2014 Class: Chronic Morbid Obesity [E66.01] 01/23/2010 Lumbar Disc Disorder [M51.9] 02/16/2010 Routine general medical examination at [facility]*12/06/2012 02/22/2014 Anxiety [F41.9] 06/07/2014 Type 2 diabetes mellitus with microalbuminuria,*0 07/04/2018 Fatty liver [K76.0] 07/21/2018 LETITIA (obstructive sleep apnea) [G47.33] 07/21/2018 Microalbuminuria [R80.9] 09/30/2018 09/04/2022 Obesity, Class III, BMI >= 40 [E66.01] 11/26/2019 09/04/2022 Prolonged Q-T interval on ECG [R94.31] 03/31/2020 Calculus of kidney [N20.0] 09/04/2022 Chest pain [R07.9] 09/04/2022 09/04/2022 Contusion of knee [S80.00XA] 09/04/2022 09/04/2022 Essential (primary) hypertension [I10] 08/16/2022 Fall [W19.XXXA] 09/04/2022 09/04/2022 Headache [R51] 09/04/2022 09/04/2022 Herniation of lumbar intervertebral disc with r*06/10/2017 History of type 2 diabetes mellitus [Z86.39] 09/04/2022 09/04/2022 Low back pain, unspecified [M54.50] 04/17/2022 09/04/2022 (more content not included)... Normal [facility] Glucose Glucometer (BldC) [M ass/Vol]Ordered By: Dr. Shabazz on 11-24-2022 Glucose [Mass/Vol] 89 mg/dL 74-106 [facility] Comment on above: MANAGEMENT OF PATIEN T CARE PER NURSING PROTOCOL CNOVon 11-08-2022 CNOV Office Visit (SPAGWO) ---- TORI GRAY ([id number]) 1980 F Date Time Provider Department 11/08/22 1:30 PM ADELINA MASON During your visit today, we recorded the following information about you: Pulse Respiration 70/minute 14/minute Gloria Oh MA 11/08/2022 1:55 PM Signed Review of Systems Constitutional: Negative for activity change, chills, fever and unexpected weight change. Gastrointestinal: Negative for bowel retention or incontinence Genitourinary: Negative for difficulty urinating. Negative for bladder retention or incontinence Musculoskeletal: Positive for arthralgias, back pain, joint swelling and myalgias. Negative for gait problem, neck pain and neck stiffness. Neurological: Positive for numbness. Negative for weakness and headaches. Psychiatric/Behavio ral: Negative for dysphoric mood, sleep disturbance and suicidal ideas. The patient is not nervous/anxious. Adelina Mason APRN.ELECTROTYPER HELPER 11/08/2022 1:55 PM Signed [facility] Today's Date: 11/08/2022 Last Visit: 07/19/22 Name: Tori Gray : 1980 Chief complaint: LEFT shoulder pain History of Present Illness: Since last encounter, Tori Gray; reports that the chronic problem(s) detailed above are Worse. Previous LEFT suprascapular NB provided >75% pain relief and with a therapeutic effect. Last OV we discussed proceeding with RFA, unfortunately insurance denied. Discussed repeat NB with steroids for a longer therapeutic benefit. States she is allergic to steroids, will develop hives for days. Pain Description: Timing: constant, but worse with activity Character: Numb and Tingling Primary Location: LEFT shoulder Radiation: None Exacerbating factors: lifting Relieving factors: unable to pinpoint positions/factors that are mitigating Interferes with: physical activity and work The patient denies difficulty with bowel or bladder control, unintentional weight loss and fevers, chills, or night sweats. Recall: SE with Vickie Current Status: INTAKE PAIN ASSESSMENT 10/31/2022 11/08/2022 Are you having pain associated with your visit today? No Yes, Provider notified Pain Scales - Verbal (Numeric Rating or Visual Analog Scale) Pain Level - 8 Pain Location - Shoulder-Left Description - Numbness;Tingling;S harp;Shooting Duration Amount of Time - - Duration Units - Years Frequency - Intermittent Intervention/Comfor t measure - Reposition;Relaxati on;Positioning Comments - - Current Pain Medications: Opioids: NSAIDS: Anti-depressants: Anti-convulsants: Gabapentin 200mg BID, topamax (PCP) Muscle relaxants: Tizanidine Others: Tylenol arthritis Analgesia: partially adequate Risk Assessment: VAHE-7: VAHE - 7 SCORES 03/29/2022 10/05/2022 VAHE-7 Score 0 8 (0-4) minimal anxiety, (5-9) mild anxiety, (10-14) moderate anxiety, (15-21) severe anxiety PHQ-9: PHQ-9 07/29/2020 03/29/2022 10/05/2022 Score 2 2 16 (0-4) minimal depression, (5-9) mild depression, (10-14) moderate depression, (15-19) moderately severe depression, (20-27) severe depression Compliance: PDMP website checked and validated. All prescriptions have been APPROPRIATELY filled. No suspicious activity was identified. 11/08/2022 by Adelina Mason APRN.[facility] Allergies: ALLERGIES Allergen Reactions Lidocaine Hives Steroids [Betametha* Hives Data Reviewed: Reviewed personally on today's date 11/08/2022 Relevant Imaging: MRI C-Spine 08/2021 ([facility]): Very mild degenerative changes MRI L-spine 11/2021 ([facility]): Very mild degenerative changes. Facet arthropathy at L1-2 through L5-S1. MRI Left Shoulder 10/2021 ([facility]): Small GH effusion, small degenerative change posterior-inferior labrum (Per Dr. Greene) MRI of the right shoulder from an outside facility is essentially normal with some minor degenerative labral fraying and a joint effusion. Recent labs: CMP: Glucose 93 08/12/2015 BUN 9 08/12/2015 Creatinine 0.59 08/12/2015 Sodium 136 08/12/2015 Potassium 3.9 08/12/2015 Chloride 97 08/12/2015 CO2 25 08/12/2015 Protein, Total 7.3 08/12/2015 Albumin 4.3 08/12/2015 Calcium 9.0 08/12/2015 Alkaline Phosphatase 62 08/12/2015 Bilirubin, Total 0.6 08/12/2015 AST 23 08/12/2015 ALT 26 08/12/2015 Pain Procedures: DATE PROCEDURE IMPROVEMENT 05/09/22 LEFT suprascapular NB 75% Current Medications, Past Medical History, Past Surgical History, Family History, Social History and Review of Systems: On today's date, 11/08/2022, noted above, I have confirmed and edited as necessary, the PFSH and ROS obtained by others. Physical Exam: 11/08/22 1335 Pulse: 70 Resp: 14 SpO2: 98% Constitutional: morbidly obese HEENT: Normal Cephalic, Atraumatic, Non-icteric sclera Eyes: Conjunctiva clear. No discharge from eyes Cardiovascular: Appears well perfused Lymphatic: No vis (more content not included)... Normal [facility] CNPNon 11-08-2022 CNPN Telephone (SPAGWO) ---- TORI GRAY ([id number]) 1980 F Date Time Provider Department 11/08/22 ELLE SANCHEZ LATOYA During your visit today, we recorded the following information about you: Leomaribel Calderon 11/08/2022 2:06 PM Signed Procedure(s) being scheduled: 1.Are you diabetic Yes. Please list the current medications being prescribed Trulicity . 2. Are you on any blood thinners? No If yes, does it require a hold? No If yes, was approval letter sent? No 3. Are you taking any aspirin? No 4. Are you currently taking any antibiotics? No If yes, is it prophylactic or for treatment of an infection? 5. Do you have any allergies to latex? No 6. Do you have any allergies to seafood or shellfish? No 7. Do you have any allergies to x-ray dye? No 8. Did the physician instruct you to take any medication prior to your procedure? No 9. Does this procedure require a class b driver? Yes If yes, has patient been notified that a class b driver is needed and must be present at check in? yes 10. Were the pre-procedure instructions explained and provided to the patient? yes 11. Do you have a pacemaker? No 12. Do you have an internal stimulator of any kind? No If yes, please bring the remote with you to your procedure visit. 13. Have you received the COVID-19 Vaccine? Yes. If yes, date(s) received: 10/31/21 (Patient should not receive a procedure including steroids 14 days prior to their first dose of the COVID vaccine. They should not receive any procedure containing steroids in the time frame between their 1st and 2nd doses of the COVID vaccine. They should not receive a procedure containing steroids 14 days after their 2nd dose of the COVID vaccine.) Vito PaLidia Allergies As of Date: 11/08/2022 Noted Allergy Reaction LIDOCAINE 12/24/2019 4 - Hives STEROIDS (BETAMETHASONE DIPROPION* 2 4 - Hives Date Reviewed: 11/08/2022 Reviewed by: Adelina M Julian, TRANSMITTER SUPERVISOR.ELECTROTYPER HELPER - Fully Assessed Reason for Visit: Injections [199] Prescriptions as of 12/21/2022 - lisinopril (ZESTRIL, PRINIVIL) 10 mg tablet Take 1 tablet by mouth once daily. - tiZANidine (ZANAFLEX) 4 mg tablet Take 1 tablet by mouth every 8 hours as needed. - ondansetron (ZOFRAN) 4 mg tablet Take 1 tablet by mouth every 8 hours as needed for nausea/vomiting. - gabapentin (NEURONTIN) 300 mg capsule Take 1 tablet in AM, afternoon and bedtime. If after 2 days symptoms persist, increase to 1 tab in AM, afternoon and 2 tabs at bedtime. - FLUoxetine (PROZAC) 20 mg capsule Take 1 capsule by mouth once daily. - BIPAP - topiramate (TOPAMAX) 100 mg tablet Take 1 tablet by mouth twice daily. - rizatriptan (MAXALT) 10 mg tablet Take 1 tablet by mouth as needed (at onset of headache. May repeat after 2 hours.). Do not exceed 30 mg per day. - dulaglutide (TRULICITY) 0.75 mg/0.5 mL pen injector Inject 0.75 mg subcutaneously one time a week. Inject dose once per week. Discard Pen After - albuterol HFA (VENTOLIN HFA) 90 mcg/actuation inhaler Inhale 2 Puffs as instructed every 4 hours as needed for wheezing/shortness of breath. - fexofenadine (ALMA ALLERGY) 180 mg tablet Take 1 tablet by mouth once daily. - omeprazole (PRILOSEC) 20 mg capsule Take 1 capsule by mouth daily before breakfast. 1/2 hr before meal. - levonorgestrel (KYLEENA) 17.5 mcg/24 hrs (5 yrs) 19.5 mg IUD 1 Each by INTRAUTERINE route as directed. - Ipratropium [place] (ATROVENT) 0.03 % nasal spray Use 2 Sprays in the nose every 12 hours. - metroNIDAZOLE (METROGEL) 0.75 % Topical Gel Apply to affected area twice daily. - Herrick-3 Fatty Acids (FISH OIL) 500 mg cap Take 1 capsule by mouth once daily. - blood sugar diagnostic (BLOOD GLUCOSE TEST) test strip Test blood sugar(s) 1 times daily. Dx: Type 2 DM - Controlled E11.9 Insulin: Yes - Lancets lancets Test blood sugar(s) 1 times daily. Dx: Type 2 DM - Controlled E11.9 Insulin: No - Lhhbayxc-Zb-Avn-Fe- FA tab Take 1 tablet by mouth once daily. Meds Comments as of 03/01/2019: Percocet March 01, 2019 Stephanie Suresh RN Problem List As Of Date 11/08/2022 Noted Resolved SUPERVIS NORMAL 1ST PREG [Z34.00] 11/09/2005 07/02/2006 TRANS HYPERTEN-ANTEPART [O13.9] 06/19/2006 07/02/2006 KERATOSIS PILARIS////SKIN ANOMALY NEC [Q82.8] 03/26/2007 01/23/2010 Other Acne [L70.8] 03/26/2007 FOLLICULITIS///HAIR DISEASES NEC [L67.8, L73.8] 03/26/2007 01/23/2010 Lichenification and Lichen Simplex Chronicus [L*03/26/2007 01/23/2010 DERMATOFIBROMA///BE NIGN KAILEY SKIN ARM [D23.60] 03/26/2007 01/23/2010 Contact Dermatitis and Other Eczema, due to Uns*03/26/2007 01/23/2010 SACROILIITIS [M46.1] 05/06/2009 01/23/2010 Routine general medical examination at a health*01/23/2010 12/06/2012 Class: Chronic Routine gynecological examination [Z01.419] 01/23/2010 02/22/2014 Class: Chronic Morbid Obesity [E66.01] 01/23/2010 Lumbar (more content not included)... Normal [facility] TORI GRAY ([id number]) 1980 F Date Time Provider Department 10/02/22 [facility] During your visit today, we recorded the following information about you: Adriana Licona 10/02/2022 11:32 AM Signed Patient called in leaving a voicemail stating she had an appointment with Adelina back in Jul. Insurance denied the RFA and was needing to finds out what else she can do? Adriana Licona 10/02/2022 11:32 AM Signed Patient was called back and spoke with and scheduled with Adelina in [place] beginning of the year. Adriana Licona Allergies As of Date: 10/02/2022 Noted Allergy Reaction LIDOCAINE 12/24/2019 4 - Hives STEROIDS (BETAMETHASONE DIPROPION* 4 - Hives Date Reviewed: 09/04/2022 Reviewed by: Dennise Robles - Fully Assessed Reason for Visit: Appointment [186] Patient Question [3237] Prescriptions as of 10/02/2022 - tiZANidine (ZANAFLEX) 4 mg tablet Take 1 tablet by mouth every 8 hours as needed. - SUMAtriptan (IMITREX) 50 mg tablet Take by mouth. - gabapentin (NEURONTIN) 100 mg capsule Take 2 capsules by mouth twice daily for 90 days. - rizatriptan (MAXALT) 10 mg tablet Take 1 tablet by mouth as needed (at onset of headache. May repeat after 2 hours.). Do not exceed 30 mg per day. - dulaglutide (TRULICITY) 0.75 mg/0.5 mL pen injector Inject 0.75 mg subcutaneously one time a week. Inject dose once per week. Discard Pen After - topiramate (TOPAMAX) 100 mg tablet Take 1 tablet by mouth twice daily. - albuterol HFA (VENTOLIN HFA) 90 mcg/actuation inhaler Inhale 2 Puffs as instructed every 4 hours as needed for wheezing/shortness of breath. - CPAP Modem possibly not working. Downloads ceased last month. Please check device. - fexofenadine (ALMA ALLERGY) 180 mg tablet Take 1 tablet by mouth once daily. - omeprazole (PRILOSEC) 20 mg capsule Take 1 capsule by mouth daily before breakfast. 1/2 hr before meal. - lisinopril (ZESTRIL, PRINIVIL) 5 mg tablet Take 1 tablet by mouth once daily. - levonorgestrel (KYLEENA) 17.5 mcg/24 hrs (5 yrs) 19.5 mg IUD 1 Each by INTRAUTERINE route as directed. - CPAP Please fit with a Dreamwear under nose FFM. Patient with sore on bridge of nose and difficulties moving in bed with current PAP mask. - Ipratropium [place] (ATROVENT) 0.03 % nasal spray Use 2 Sprays in the nose every 12 hours. - metroNIDAZOLE (METROGEL) 0.75 % Topical Gel Apply to affected area twice daily. - Herrick-3 Fatty Acids (FISH OIL) 500 mg cap Take 1 capsule by mouth once daily. - blood sugar diagnostic (BLOOD GLUCOSE TEST) test strip Test blood sugar(s) 1 times daily. Dx: Type 2 DM - Controlled E11.9 Insulin: Yes - Lancets lancets Test blood sugar(s) 1 times daily. Dx: Type 2 DM - Controlled E11.9 Insulin: No - Dstjoaqd-Rs-Xad-Fe- FA tab Take 1 tablet by mouth once daily. 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*03/26/2007 01/23/2010 DERMATOFIBROMA///BE NIGN KAILEY SKIN ARM [D23.60] 03/26/2007 01/23/2010 Contact Dermatitis and Other Eczema, due to Uns*03/26/2007 01/23/2010 SACROILIITIS [M46.1] 05/06/2009 01/23/2010 Routine general medical examination at [facility]*01/23/2010 12/06/2012 Class: Chronic Routine gynecological examination [Z01.419] 01/23/2010 02/22/2014 Class: Chronic Morbid Obesity [E66.01] 01/23/2010 Lumbar Disc Disorder [M51.9] 02/16/2010 Routine general medical examination at health*12/06/2012 02/22/2014 Anxiety [F41.9] 06/07/2014 Type 2 diabetes mellitus with microalbuminuria,*0 07/04/2018 Fatty liver [K76.0] 07/21/2018 LETITIA (obstructive sleep apnea) [G47.33] 07/21/2018 Microalbuminuria [R80.9] 09/30/2018 09/04/2022 Obesity, Class III, BMI >= 40 [E66.01] 11/26/2019 09/04/2022 Prolonged Q-T interval on ECG [R94.31] 03/31/2020 Calculus of kidney [N20.0] 09/04/2022 Chest pain [R07.9] 09/04/2022 09/04/2022 Contusion of knee [S80.00XA] 09/04/2022 09/04/2022 Essential (primary) hypertension [I10] 08/16/2022 Fall [W19.XXXA] 09/04/2022 09/04/2022 Headache [R51] 09/04/2022 09/04/2022 Herniation of lumbar intervertebral disc with r*06/10/2017 History of type 2 diabetes mellitus [Z86.39] 09/04/2022 09/04/2022 Low back pain, unspecified [M54.50] 04/17/2022 09/04/2022 Migraine headache [G43.909] 09/04/2022 Muscle pain [M79.10] 09/04/2022 09/04/2022 Nausea, vomiting, and diarrhea [R11.2, R19.7] 11/22/2021 09/04/2022 Numbness of upper extremity [R20.0] 12/ (more content not included)... Normal [facility] Absolute lymphocyte countOrd ered By: Dr. Grimes on 09-06-2022 Lymphocytes Auto (Unsp spec) [#/Vol] 2.67 10*3/uL 0.83-4.51 [facility] Basophil percentageOrdered B y: Dr. Grimes on 09-06-2022 Basophils/100 WBC (Bld) 0.5 % 0-1 [facility] Chloride [Moles/Vol] 110 mmol/L 98-107 [facility] Eosinophils/100 WBC (Bld) 2.1 % 0-5 [facility] Glucose [Mass/Vol] 120 mg/dL 74-106 [facility] Comment on above: Fasting Glucose resu lt from 100 to 125 mg/dL suggests IMPAIRED HOMEOSTASIS per A.D.A. criteria. Neutrophils (Bld) [#/Vol] 6.2 10*3/uL 2.0-7.7 [facility] Neutrophils/100 WBC (Bld) 64.2 % 47-70 [facility] Potassium [Moles/Vol] 3.6 mmol/L 3.5-5.1 [facility] Sodium [Moles/Vol] 139 mmol/L 136-145 [facility] WBC (Bld) [#/Vol] 9.6 10*3/uL 4.4-11.0 [facility] Blood erythrocytes count (nu mber/volume)Ordered By: Dr. Grimes on 09-06-2022 RBC (Bld) [#/Vol] 4.29 10*6/uL 4.2-5.4 [facility] Blood hemoglobin measurement (mass/volume)Ordered By: Dr. Grimes on 09-06-2022 Hemoglobin (Bld) [Mass/Vol] 13.6 g/dL 12.0-15.0 [facility] Blood lymphocytes/100 leukoc ytesOrdered By: Dr. Grimes on 09-06-2022 Lymphocytes/100 WBC (Bld) 27.8 % 19-41 [facility] Blood monocytes/100 leukocyt esOrdered By: Dr. Grimes on 09-06-2022 Monocytes/100 WBC (Bld) 4.3 % 0-10 [facility] Blood platelet mean volumeOr dered By: Dr. Grimes on 09-06-2022 Platelet mean volume (Bld) [Entitic vol] 9.6 fL 6.2-12.0 [facility] Determination of erythrocyte mean corpuscular volume (MCV)Ordered By: Dr. Grimes on 09-06-2022 MCV (RBC) [Entitic vol] 90.2 fL 81-99 [facility] Hematocrit Auto (Bld) [Volum e fraction]Ordered By: Dr. Grimes on 09-06-2022 Hematocrit (Bld) [Volume fraction] 38.7 % 37-47 [facility] Laboratory - Chemistry and C hemistry - challengeOrdered By: Dr. Grimes on 09-06-2022 CO2 [Moles/Vol] 23.0 mmol/L 21.0-32.0 [facility] Urea nitrogen/Creatinine [Mass ratio] 15.9 mg/mg 10-20 [facility] Laboratory - Hematology and Cell countsOrdered By: Dr. Grimes on 09-06-2022 Erythrocyte distribution width (RBC) [Entitic vol] 42.5 fL 35.1-43.9 [facility] Erythrocyte distribution width (RBC) [Ratio] 12.9 % 11.6-14.6 [facility] Immature granulocytes/100 WBC (Bld) 1.100 % 0.0-0.9 [facility] Comment on above: IG% - Immature Granu locytes (promyelocytes, myelocytes and metamyelocytes) > 1% indicates that a LEFT SHIFT is Present. MCH (RBC) [Entitic mass] 31.7 pg 27.0-32.0 [facility] Nucleated RBC/100 WBC (Bld) [Ratio] 0 % 0-5 [facility] MCHC Auto (RBC) [Mass/Vol]Or dered By: Dr. Grimes on 09-06-2022 MCHC (RBC) [Mass/Vol] 35.1 g/dL 32-36 [facility] No Panel InformationOrdered By: Dr. Grimes on 09-06-2022 Estimated GFR (MDRD) Amer 100 mL/min >60 [facility] Comment on above: GFR Calc Estimated GFR (MDRD) Non-Af Amer 82 mL/min >60 [facility] Comment on above: Non- GFR Calc Thyroid Stimulating Hormone (TSH) 1.56 uIU/mL 0.358-3.74 [facility] Platelets bldOrdered By: Dr. Grimes on 09-06-2022 Platelets (Bld) [#/Vol] 190 10*3/uL 150-450 [facility] Serum or plasma calcium sharron urement (mass/volume)Ordered By: Dr. Grimes on 09-06-2022 Calcium [Mass/Vol] 8.7 mg/dL 8.5-10.1 [facility] Serum or plasma creatinine m easurement (mass/volume)Ordered By: Dr. Grimes on 09-06-2022 Creatinine [Mass/Vol] 0.82 mg/dL 0.55-1.02 [facility] Comment on above: The validity of the calculated GFR & GFRAA in patients over 70 years has not been determined. Clinical correlation is essential. Serum or plasma urea nitroge n measurement (mass/volume)Ordered By: Dr. Grimes on 09-06-2022 Urea nitrogen [Mass/Vol] 13 mg/dL 7-18 [facility] Thin prep Papanicolaou smear with manual screeningOrdered By: Dr. Grimes on 09-06-2022 Thin prep Papanicolaou smear with manual screening 6 5-15 [facility] Laboratory - Chemistry and C hemistry - challengeOrdered By: Dr. Guerrero on 08-29-2022 Magnesium [Mass/Vol] 1.7 mg/dL 1.6-2.6 [facility] Basophil percentageOrdered B y: Dr. Grimes on 08-08-2022 Cholesterol [Mass/Vol] 168 mg/dL <200 [facility] Comment on above: <200 mg/dL Desirable 200-240 mg/dL Borderline >240 mg/dL High Risk Triglyceride [Mass/Vol] 176 mg/dL <199 [facility] Comment on above: The drugs N-Acetylcy steine and Metamizole may falsely depress this assay.Serum Triglycerides Reference Interval Normal <150 mg/dL Borderline high 150 - 199 mg/dL High 200 - 499 mg/dL Very High > or = 500 mg/dL [facility] 08-08-2022 TAYLER Telephone (AGSPHWG) ---- TORI GRAY ([id number]) 1980 F Date Time Provider Department 08/08/22 ADELINA MASON AGSPHWG During your visit today, we recorded the following information about you: Adelina Mason APRN.[facility] 08/08/2022 12:55 PM Signed Please advise patient insurance will not approve the RFA of her shoulder. Another option would be to repeat the LEFT scapular NB, but with steroids for a therapeutic effect. If she would like to proceed with this option please let me know and will place the order. Thank you, Adelina Mason APRN.ELECTROTYPER HELPER Pankaj Lidia 08/10/2022 2:13 PM Signed Left patient a detailed message informing her of this information. Also left the number for her to call back. Allergies As of Date: 08/08/2022 Noted Allergy Reaction LIDOCAINE 12/24/2019 4 - Hives STEROIDS (BETAMETHASONE DIPROPION* 4 - Hives Date Reviewed: 07/19/2022 Reviewed by: Karen Bansal APRN.ELECTROTYPER HELPER - Fully Assessed Reason for Visit: Patient Update [1234] Prescriptions as of 08/10/2022 - rizatriptan (MAXALT) 10 mg tablet Take 1 tablet by mouth as needed (at onset of headache. May repeat after 2 hours.). Do not exceed 30 mg per day. - tiZANidine (ZANAFLEX) 4 mg tablet Take 1 tablet by mouth every 8 hours as needed. - dulaglutide (TRULICITY) 0.75 mg/0.5 mL pen injector Inject 0.75 mg subcutaneously one time a week. Inject dose once per week. Discard Pen After - topiramate (TOPAMAX) 100 mg tablet Take 1 tablet by mouth twice daily. - albuterol HFA (VENTOLIN HFA) 90 mcg/actuation inhaler Inhale 2 Puffs as instructed every 4 hours as needed for wheezing/shortness of breath. - gabapentin (NEURONTIN) 100 mg capsule Take 2 capsules by mouth twice daily for 90 days. - CPAP Modem possibly not working. Downloads ceased last month. Please check device. - fexofenadine (ALMA ALLERGY) 180 mg tablet Take 1 tablet by mouth once daily. - omeprazole (PRILOSEC) 20 mg capsule Take 1 capsule by mouth daily before breakfast. 1/2 hr before meal. - lisinopril (ZESTRIL, PRINIVIL) 5 mg tablet Take 1 tablet by mouth once daily. - levonorgestrel (KYLEENA) 17.5 mcg/24 hrs (5 yrs) 19.5 mg IUD 1 Each by INTRAUTERINE route as directed. - CPAP Please fit with a Dreamwear under nose FFM. Patient with sore on bridge of nose and difficulties moving in bed with current PAP mask. - Ipratropium [place] (ATROVENT) 0.03 % nasal spray Use 2 Sprays in the nose every 12 hours. - metroNIDAZOLE (METROGEL) 0.75 % Topical Gel Apply to affected area twice daily. - Herrick-3 Fatty Acids (FISH OIL) 500 mg cap Take 1 capsule by mouth once daily. - blood sugar diagnostic (BLOOD GLUCOSE TEST) test strip Test blood sugar(s) 1 times daily. Dx: Type 2 DM - Controlled E11.9 Insulin: Yes - Lancets lancets Test blood sugar(s) 1 times daily. Dx: Type 2 DM - Controlled E11.9 Insulin: No - Iilloosv-Dy-Dqu-Fe- FA tab Take 1 tablet by mouth once daily. Meds Comments as of 03/01/2019: Percocet March 01, 2019 Stephanie Suresh RN Problem List As Of Date 08/08/2022 Noted Resolved SUPERVIS NORMAL 1ST PREG [Z34.00] 11/09/2005 07/02/2006 TRANS HYPERTEN-ANTEPART [O13.9] 06/19/2006 07/02/2006 KERATOSIS PILARIS////SKIN ANOMALY NEC [Q82.8] 03/26/2007 01/23/2010 Other Acne [L70.8] 03/26/2007 FOLLICULITIS///HAIR DISEASES NEC [L67.8, L73.8] 03/26/2007 01/23/2010 Lichenification and Lichen Simplex Chronicus [L*03/26/2007 01/23/2010 DERMATOFIBROMA///BE NIGN KAILEY SKIN ARM [D23.60] 03/26/2007 01/23/2010 Contact Dermatitis and Other Eczema, due to Uns*03/26/2007 01/23/2010 SACROILIITIS [M46.1] 05/06/2009 01/23/2010 [facility]01/23/2010 12/06/2012 Class: Chronic Routine gynecological examination [Z01.419] 01/23/2010 02/22/2014 Class: Chronic Morbid Obesity [E66.01] 01/23/2010 Lumbar Disc Disorder [M51.9] 02/16/2010 Routine general medical examination at health*12/06/2012 02/22/2014 Anxiety [F41.9] 06/07/2014 Type 2 diabetes mellitus with microalbuminuria,*0 07/04/2018 Fatty liver [K76.0] 07/21/2018 LETITIA (obstructive sleep apnea) [G47.33] 07/21/2018 Microalbuminuria [R80.9] 09/30/2018 Obesity, Class III, BMI >= 40 [E66.01] 11/26/2019 Prolonged Q-T interval on ECG [R94.31] 03/31/2020 Encounter Status:Closed by ADELINA MASON on 08/08/22 [facility] No Panel InformationOrdered By: Dr. Grimes on 08-08-2022 Thyroid Stimulating Hormone (TSH) 3.38 uIU/mL 0.358-3.74 [facility] Serum or plasma cholesterol in HDL measurement (mass/volume)Ordered By: Dr. Grimes on 08-08-2022 Cholesterol in HDL [Mass/Vol] 37 mg/dL >40 [facility] Comment on above: The drugs N-Acetylcy steine and Metamizole may falsely depress this assay. Reference Range HDL <40 mg/dL Low HDL Cholesterol HDL >or= 60 mg/dL High HDL Cholesterol Serum or plasma cholesterol in VLDL measurement (mass/volume)Ordered By: Dr. Grimes on 08-08-2022 Cholesterol in VLDL [Mass/Vol] 35 mg/dL 5-40 [facility] Serum or plasma low density lipoprotein (LDL) cholesterol measurement (mass/volume)Ordered By: Dr. Grimes on 08-08-2022 Cholesterol in LDL [Mass/Vol] 96 mg/dL 0-130 [facility] Whole blood hemoglobin A1c/t otal hemoglobin ratio (mass fraction)Ordered By: Dr. Grimes on 08-08-2022 HbA1c (Bld) [Mass fraction] 5.3 % 3.8-5.6 [facility] Comment on above: Normal < 5.7 % Predi abetic 5.7 - 6.4 % Diabetic >or= 6.5 % Please note range changes. CNCOon 07-19-[address] [facility] CNOVon 07-19-2022 CNOV Office Visit (SPAGWO) ---- TORI GRAY ([id number]) 1980 F Date Time Provider Department 07/19/22 9:45 AM ADELINA MASON During your visit today, we recorded the following information about you: Pulse Respiration 63/minute 16/minute Tiana Cifuentes MA 07/19/2022 10:17 AM Signed Review of Systems Constitutional: Negative for activity change, chills, fever and unexpected weight change. Gastrointestinal: Negative for bowel retention or incontinence Genitourinary: Negative for difficulty urinating. Negative for bladder retention or incontinence Musculoskeletal: Positive for back pain, neck pain and neck stiffness. Negative for arthralgias, gait problem, joint swelling and myalgias. Neurological: Positive for weakness, numbness and headaches. Psychiatric/Behavio ral: Negative for dysphoric mood, sleep disturbance and suicidal ideas. The patient is not nervous/anxious. Adelina Mason APRN.ELECTROTYPER HELPER 07/19/2022 10:17 AM Signed [facility] Today's Date: 07/19/2022 Last Visit: 05/24/22 Name: Tori Gray : 1980 Purpose: Established Patient Encounter Interval History: Since last encounter, Tori Gray; reports that the chronic problem(s) of LEFT shoulder pain are Worse. Last OV she noted 75% pain relief after Suprascapular NB and ROM was improving. She was still having excellent relief last OV and opted to hold on any further intervention. States over the last 1-2 weeks she has noted her pain returning despite PT and HEP. She is ready to proceed with RFA at this time. She had Side effects with Lyrica, so she had restarted gabapentin, reports this is helping and tolerates this well. Pain Description: Timing: constant, but worse with activity Character: Numb and Tingling Primary Location: LEFT shoulder Radiation: None Exacerbating factors: lifting Relieving factors: unable to pinpoint positions/factors that are mitigating Interferes with: physical activity and work The patient denies difficulty with bowel or bladder control, unintentional weight loss and fevers, chills, or night sweats. New Problems reported: See above Recall: Patient of Dr. Sanchez. Current Status: INTAKE PAIN ASSESSMENT 06/07/2022 07/19/2022 Are you having pain associated with your visit today? No Yes, Provider notified Pain Scales - Verbal (Numeric Rating or Visual Analog Scale) Pain Level - 7 Pain Location - Shoulder-Left Description - Sharp;Shooting Duration Amount of Time - - Duration Units - Years Frequency - Intermittent Intervention/Comfor t measure - Other: See comment Comments - nothing currently Current Pain Medications: Opioids: NSAIDS: Anti-depressants: Anti-convulsants: Gabapentin 200mg BID, topamax Muscle relaxants: Tizanidine Others: Tylenol arthritis Analgesia: partially adequate Current Anti-Coagulant Use: No Allergies: ALLERGIES Allergen Reactions Lidocaine Hives Steroids [Betametha* Hives Data Reviewed: Reviewed personally on today's date 07/19/2022 Relevant Imaging: MRI Spine Report MRI LUMBAR SPINE WO CONTRAST Collected: 02/16/2010 8:25 AM (Final result) MRI C-Spine 08/2021 ([facility]): Very mild degenerative changes MRI L-spine 11/2021 ([facility]): Very mild degenerative changes. Facet arthropathy at L1-2 through L5-S1. MRI Left Shoulder 10/2021 ([facility]): Small GH effusion, small degenerative change posterior-inferior labrum (Per Dr. Greene) MRI of the right shoulder from an outside facility is essentially normal with some minor degenerative labral fraying and a joint effusion. Recent labs: Creatinine Date Value Ref Range Status 08/12/2015 0.59 (L) 0.70 - 1.40 mg/dL Final @lastegfr(gfr)@ Glucose, Point of Care Date Value Ref Range Status 05/10/2022 104 (A) 74 - 99 mg/dL Final Comment: Location:[facility], [address] [place] [address], [id number] The Accu-Chek Inform II glucose meter has not been approved for testing on patients receiving intensive medical intervention or therapy and results from this point of care glucose test should not be used for patient management decisions in these cases. Inaccurate results may also occur from other interfering factors, such as N-acetylcysteine (blood concentrations of greater than 5mg/dL), galactose, extremes of hematocrit (<10 or >65), or high doses of ascorbic acid (vitamin C) greater than 3mg/dL. Consider alternate testing mechanisms (e.g. core lab, blood gas instrument) in the above situations. Pain Procedures: DATE PROCEDURE IMPROVEMENT 05/09/22 LEFT suprascapular NB 75% Compliance: [facility] website checked and validated. All prescriptions have been APPROPRIATELY filled. No suspicious activity was identified. 07/19/2022 by Adelina Mason APRN.[facility] Last Drug screen: Not Applicable Risk Assessment: VAHE-7: (more content not included)... Normal [facility] TORI G[facility] ([id number]) 1980 F Date Time Provider Department 07/19/22 ELLE SANCHEZGWAsha During your visit today, we recorded the following information about you: Pankaj Murillo 07/19/2022 11:15 AM Signed 1.Are you diabetic Yes. Please list the current medications being prescribed Trulicity. 2. Are you on any blood thinners? No 3. Are you taking any aspirin? No 4. Have you had any recent imaging done on your body part that's being injected? Yes Xrays and MRI 5. Do you have any allergies to latex? No 6. Do you have any allergies to seafood? No 7. Do you have any allergies to shellfish? No 8. Do you have any allergies to x-ray dye? No 9. Are you taking Xanax for the procedure? No 10. Have you done physical therapy in the last year? Yes If yes, When and Where? [facility], currently attending (Medical Records Release needs to be signed.) 11. Were the pre-procedure instructions explained to the patient? Yes, given to patient 12. Do you have a pacemaker? No 13. Do you have an internal stimulator of any kind? No If yes, please bring the remote with you to your procedure visit. 14. Have you received the COVID-19 Vaccine? Yes. If yes, date(s) received: explained to patient (Patient should not receive a procedure including steroids 14 days prior to their first dose of the COVID vaccine. They should not receive any procedure containing steroids in the time frame between their 1st and 2nd doses of the COVID vaccine. They should not receive a procedure containing steroids 14 days after their 2nd dose of the COVID vaccine.) Charay Lidia Allergies As of Date: 07/19/2022 Noted Allergy Reaction LIDOCAINE 12/24/2019 4 - Hives STEROIDS (BETAMETHASONE DIPROPION* 2 4 - Hives Date Reviewed: 07/19/2022 Reviewed by: Adelina Mason APRN.ELECTROTYPER HELPER - Fully Assessed Reason for Visit: Patient Update [1234] Cmt: Injection questions Prescriptions as of 07/19/2022 - tiZANidine (ZANAFLEX) 4 mg tablet Take 1 tablet by mouth every 8 hours as needed. - topiramate (TOPAMAX) 100 mg tablet Take 1 tablet by mouth twice daily. - albuterol HFA (VENTOLIN HFA) 90 mcg/actuation inhaler Inhale 2 Puffs as instructed every 4 hours as needed for wheezing/shortness of breath. - gabapentin (NEURONTIN) 100 mg capsule Take 2 capsules by mouth twice daily for 90 days. - CPAP Modem possibly not working. Downloads ceased last month. Please check device. - fexofenadine (ALMA ALLERGY) 180 mg tablet Take 1 tablet by mouth once daily. - omeprazole (PRILOSEC) 20 mg capsule Take 1 capsule by mouth daily before breakfast. 1/2 hr before meal. - lisinopril (ZESTRIL, PRINIVIL) 5 mg tablet Take 1 tablet by mouth once daily. - dulaglutide (TRULICITY) 0.75 mg/0.5 mL pen injector Inject 0.75 mg subcutaneously one time a week. Inject dose once per week. Discard Pen After - levonorgestrel (KYLEENA) 17.5 mcg/24 hrs (5 yrs) 19.5 mg IUD 1 Each by INTRAUTERINE route as directed. - CPAP Please fit with a Dreamwear under nose FFM. Patient with sore on bridge of nose and difficulties moving in bed with current PAP mask. - Ipratropium [place] (ATROVENT) 0.03 % nasal spray Use 2 Sprays in the nose every 12 hours. - metroNIDAZOLE (METROGEL) 0.75 % Topical Gel Apply to affected area twice daily. - Herrick-3 Fatty Acids (FISH OIL) 500 mg cap Take 1 capsule by mouth once daily. - blood sugar diagnostic (BLOOD GLUCOSE TEST) test strip Test blood sugar(s) 1 times daily. Dx: Type 2 DM - Controlled E11.9 Insulin: Yes - Lancets lancets Test blood sugar(s) 1 times daily. Dx: Type 2 DM - Controlled E11.9 Insulin: No - Cxrjfkpy-Dr-Kyk-Fe- FA tab Take 1 tablet by mouth once daily. Meds Comments as of 03/01/2019: Percocet March 01, 2019 Stephanie Suresh RN Problem List As Of Date 07/19/2022 Noted Resolved SUPERVIS NORMAL 1ST PREG [Z34.00] 11/09/2005 07/02/2006 TRANS HYPERTEN-ANTEPART [O13.9] 06/19/2006 07/02/2006 KERATOSIS PILARIS////SKIN ANOMALY NEC [Q82.8] 03/26/2007 01/23/2010 Other Acne [L70.8] 03/26/2007 FOLLICULITIS///HAIR DISEASES NEC [L67.8, L73.8] 03/26/2007 01/23/2010 Lichenification and Lichen Simplex Chronicus [L*03/26/2007 01/23/2010 DERMATOFIBROMA///BE NIGN KAILEY SKIN ARM [D23.60] 03/26/2007 01/23/2010 Contact Dermatitis and Other Eczema, due to Uns*03/26/2007 01/23/2010 SACROILIITIS [M46.1] 05/06/2009 01/23/2010 [facility]*01/23/2010 12/06/2012 Class: Chronic Routine gynecological examination [Z01.419] 01/23/2010 02/22/2014 Class: Chronic Morbid Obesity [E66.01] 01/23/2010 Lumbar Disc Disorder [M51.9] 02/16/2010 Routine general medical examination at [facility]*12/06/2012 02/22/2014 Anxiety [F41.9] 06/07/2014 Type 2 diabetes mellitus with microalbuminuria,*0 07/04/2018 Fatty liver [K76.0] 07/21/2018 LETITIA (obstructive sleep apnea) [G47 (more content not included)... Normal [facility] Absolute lymphocyte counton 06-05-2022 Lymphocytes Auto (Unsp spec) [#/Vol] 2.26 10*3/uL 0.83-4.51 [facility] Work Phone: Absolute reticulocyte counto n 06-05-2022 Reticulocytes (Bld) [#/Vol] 0.00 10*3/uL 0-5 [facility] Work Phone: Basophil percentageon 2021 Basophil percentage 3.4 mg/dL 2.5-4.9 [facility] Work Phone: Bilirubin [Mass/Vol] 0.60 mg/dL 0.20-1.00 [facility] Work Phone: Comment on above: For patients on eltr ombopag therapy, use of Dimension [place] TBIL is not recommended. Chloride [Moles/Vol] 108 mmol/L 98-107 [facility] Work Phone: Cholesterol [Mass/Vol] 180 mg/dL <200 [facility] Work Phone: Comment on above: <200 mg/dL Desirable 200-240 mg/dL Borderline >240 mg/dL High Risk Glucose [Mass/Vol] 100 mg/dL 74-106 [facility] Work Phone: Comment on above: Fasting Glucose resu lt from 100 to 125 mg/dL suggests IMPAIRED HOMEOSTASIS per A.D.A. criteria. Neutrophils (Bld) [#/Vol] 5.5 10*3/uL 2.0-7.7 [facility] Work Phone: Potassium [Moles/Vol] 3.6 mmol/L 3.5-5.1 [facility] Work Phone: Protein [Mass/Vol] 8.2 g/dL 6.4-8.2 [facility] Work Phone: Sodium [Moles/Vol] 137 mmol/L 136-145 [facility] Work Phone: Triglyceride [Mass/Vol] 418 mg/dL <199 [facility] Work Phone: Comment on above: The drugs N-Acetylcy steine and Metamizole may falsely depress this assay. TRIGLYCERIDE IS GREATER THAN 400 mg/dL. LDL RESULT IS INVALID AND WILL NOT BE REPORTED.Serum Triglycerides Reference Interval Normal <150 mg/dL Borderline high 150 - 199 mg/dL High 200 - 499 mg/dL Very High > or = 500 mg/dL WBC (Bld) [#/Vol] 8.6 10*3/uL 4.4-11.0 [facility] Work Phone: Bilirubin Test strip Ql (U)o n 06-05-2022 Bilirubin Ql (U) Negative Negative [facility] Work Phone: Blood erythrocytes count (nu mber/volume)on 06-05-2022 RBC (Bld) [#/Vol] 4.49 10*6/uL 4.2-5.4 [facility] Work Phone: Blood hemoglobin measurement (mass/volume)on 06-05-2022 Hemoglobin (Bld) [Mass/Vol] 14.0 g/dL 12.0-15.0 [facility] Work Phone: Blood platelet mean volumeon 06-05-2022 Platelet mean volume (Bld) [Entitic vol] 9.2 fL 6.2-12.0 [facility] Work Phone: Determination of erythrocyte mean corpuscular volume (MCV)on 06-05-2022 MCV (RBC) [Entitic vol] 92.7 fL 81-99 [facility] Work Phone: Direct bilirubinon Bilirubin.direct [Mass/Vol] 0.11 mg/dL 0.00-0.30 [facility] Work Phone: Hematocrit Auto (Bld) [Volum e fraction]on 06-05-2022 Hematocrit (Bld) [Volume fraction] 41.6 % 37-47 [facility] Work Phone: Ketones Test strip Ql (U)on 06-05-2022 Ketones Ql (U) Negative Negative [facility] Work Phone: Laboratory - Chemistry and C hemistry - challengeon 06-05-2022 ALP [Catalytic activity/Vol] 73 U/L 45-117 [facility] Work Phone: ALT [Catalytic activity/Vol] 24 U/L 13-56 [facility] Work Phone: Cholesterol.total/Choles terol in HDL [Mass ratio] 5.50 {ratio} [facility] Work Phone: CO2 [Moles/Vol] 25.0 mmol/L 21.0-32.0 [facility] Work Phone: Globulin (S) [Mass/Vol] 4.1 g/dL 2.2-4.2 [facility] Work Phone: Urea nitrogen/Creatinine [Mass ratio] 16.6 mg/mg 10-20 [facility] Work Phone: Laboratory - Hematology and Cell countson 06-05-2022 Erythrocyte distribution width (RBC) [Entitic vol] 44.2 fL 35.1-43.9 [facility] Work Phone: Erythrocyte distribution width (RBC) [Ratio] 13.2 % 11.6-14.6 [facility] Work Phone: MCH (RBC) [Entitic mass] 31.2 pg 27.0-32.0 [facility] Work Phone: Nucleated RBC/100 WBC (Bld) [Ratio] 0 % 0-5 [facility] Work Phone: MCHC Auto (RBC) [Mass/Vol]on 06-05-2022 MCHC (RBC) [Mass/Vol] 33.7 g/dL 32-36 [facility] Work Phone: Nitrite Test strip Ql (U)on 06-05-2022 Nitrite Ql (U) Negative Negative [facility] Work Phone: No Panel Informationon 06-05 Estimated GFR (MDRD) Amer 115 mL/min >60 [facility] Work Phone: Comment on above: GFR Calc Estimated GFR (MDRD) Non-Af Amer 95 mL/min >60 [facility] Work Phone: Comment on above: Non- GFR Calc Platelets bldon 06-05-2022 Platelets (Bld) [#/Vol] 200 10*3/uL 150-450 [facility] Work Phone: Protein Test strip Ql (U)on 06-05-2022 Protein Ql (U) 15 mg/dl Negative [facility] Work Phone: Segmented neutrophils/100 WB C Auto (Bld)on 06-05-2022 Segmented neutrophils/100 WBC (Bld) 64.3 % 47-70 [facility] Work Phone: Serum or plasma albumin sharron urement (mass/volume)on 06-05-2022 Albumin [Mass/Vol] 4.1 g/dL 3.2-5.0 [facility] Work Phone: Serum or plasma albumin/glob ulin mass ratioon 06-05-2022 Albumin/Globulin [Mass ratio] 1.0 {ratio} 0.9-2.4 [facility] Work Phone: Serum or plasma calcium sharron urement (mass/volume)on 06-05-2022 Calcium [Mass/Vol] 8.7 mg/dL 8.5-10.1 [facility] Work Phone: Serum or plasma cholesterol in HDL measurement (mass/volume)on 06-05-2022 Cholesterol in HDL [Mass/Vol] 33 mg/dL >40 [facility] Work Phone: Comment on above: The drugs N-Acetylcy steine and Metamizole may falsely depress this assay. Reference Range HDL <40 mg/dL Low HDL Cholesterol HDL >or= 60 mg/dL High HDL Cholesterol Serum or plasma cholesterol in VLDL measurement (mass/volume)on 06-05-2022 Cholesterol in VLDL [Mass/Vol] [facility] Work Phone: Comment on above: Test not performed Serum or plasma creatinine m easurement (mass/volume)on 06-05-2022 Creatinine [Mass/Vol] 0.72 mg/dL 0.55-1.02 [facility] Work Phone: Comment on above: The validity of the calculated GFR & GFRAA in patients over 70 years has not been determined. Clinical correlation is essential. Serum or plasma low density lipoprotein (LDL) cholesterol measurement (mass/volume)on 06-05-2022 Cholesterol in LDL [Mass/Vol] [facility] Work Phone: Comment on above: Test not performed Serum or plasma urea nitroge n measurement (mass/volume)on 06-05-2022 Urea nitrogen [Mass/Vol] 12 mg/dL 7-18 [facility] Work Phone: Serum or plasma uric acid me asurement (mass/volume)on 06-05-2022 Urate [Mass/Vol] 5.6 mg/dL 2.6-6.0 [facility] Work Phone: Comment on above: The drugs N-Acetylcy steine and Metamizole may falsely depress this assay. Thin prep Papanicolaou smear with manual screeningon 06-05-2022 Thin prep Papanicolaou smear with manual screening 14 U/L 15-37 [facility] Work Phone: Thin prep Papanicolaou smear with manual screening 4 5-15 [facility] Work Phone: Thin prep Papanicolaou smear with manual screening 152 U/L 84-246 [facility] Work Phone: Urine blood detectionon 08-0 RBC Ql (U) Negative Negative [facility] Work Phone: Urine clarityon 06-05-2022 Clarity (U) Sl. Cloudy Clear [facility] Work Phone: Urine color determinationon 06-05-2022 Color (U) Yellow Yellow [facility] Work Phone: Urine glucose detectionon Glucose Ql (U) Normal mg/dl Normal [facility] Work Phone: Urine leukocyte esterase det ection by dipstickon 06-05-2022 Leukocyte esterase Test strip Ql (U) 500 /ul Negative [facility] Work Phone: Urine pHon 06-05-2022 pH (U) 5.0 [pH] 5.0 - 8.0 [facility] Work Phone: Urine specific gravity measu rementon 06-05-2022 Specific gravity (U) [Rel density] 1.020 1.002-1.030 [facility] Work Phone: Urobilinogen Auto test strip Ql (U)on 06-05-2022 Urobilinogen Ql (U) Normal mg/dl Normal [facility] Work Phone: CNOVon 05-24-2022 CNOV Office Visit (SPAGWO) ---- TORI GRAY ([id number]) 1980 F Date Time Provider Department 05/24/22 11:00 AM ADELINA MASONGWO During your visit today, we recorded the following information about you: Pulse Respiration 78/minute 18/minute Gloria Oh MA 05/24/2022 10:08 PM Signed Review of Systems Constitutional: Negative for activity change, chills, fever and unexpected weight change. Gastrointestinal: Negative for bowel retention or incontinence Genitourinary: Negative for difficulty urinating. Negative for bladder retention or incontinence Musculoskeletal: Positive for arthralgias, back pain, myalgias, neck pain and neck stiffness. Negative for gait problem and joint swelling. Neurological: Positive for weakness and numbness. Negative for headaches. Psychiatric/Behavio ral: Positive for sleep disturbance. Negative for dysphoric mood and suicidal ideas. The patient is not nervous/anxious. Adelina Mason APRN.ELECTROTYPER HELPER 05/24/2022 10:08 PM Signed [facility] Today's Date: 05/24/2022 Last Visit: 03/29/22 Name: Tori Gray : 1980 Purpose: Established Patient Encounter Interval History: Since last encounter, Tori Love Isaac; PMH significant for LETITIA, fatty liver, DM II, anxiety, obesity; reports that the chronic problem(s) of LEFT shoulder pain are Better. Reports her ROM has started to improve since the injection, reports she continues to have relief. Prior to her injection she had intermittent numbness or her LEFT arm, primarily with activity, but feels that this is now constant. Denies new or worsening arm weakness. Patient underwent LEFT suprascapular NB on 05/10/[address] Sanchez, reports 75% relief, still having relief. Reports that the pressure in her shoulder has resolved since the injection. ROM has also improved significanty. 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 Lyrica was started at her last OV, however she could Not tolerate this and her PCP restarted her on gabapentin. - Pain Description: o Timing: constant, but worse with activity o Character: Numb and Tingling o Primary Location: LEFT shoulder o Radiation: None o Exacerbating factors: lifting o Relieving factors: unable to pinpoint positions/factors that are mitigating o Interferes with: physical activity and work o The patient denies difficulty with bowel or bladder control, unintentional weight loss and fevers, chills, or night sweats. - New Problems reported: None Recall: Patient of Dr. Sanchez Current Status: INTAKE PAIN ASSESSMENT 05/10/2022 05/24/2022 Are you having pain associated with your visit today? Yes, Provider notified Yes, Provider notified Pain Scales Verbal (Numeric Rating or Visual Analog Scale) Verbal (Numeric Rating or Visual Analog Scale) Pain Level 1 7 Pain Location (No Data) Back-Lower Description Radiating;Aching;Ti ngling Sore;Numbness;Tingl ing Duration Amount of Time - - Duration Units Years Years Frequency Continuous Continuous Intervention/Comfor t measure Cold Relaxation;Repositi on;Positioning;Cold Comments tens unit - Current Pain Medications: o Opioids: o NSAIDS: o Anti-depressants: o Anti-convulsants: Gabapentin 200mg BID, topamax o Muscle relaxants: Tizanidine o Others: Tylenol arthritis - Analgesia: partially adequate Current Anti-Coagulant Use: No PAST Pain Medications (for the chief complaint(s)): - NSAIDS: Motrin (Ibuprofen) - Anti-convulsants: Lyrica (Pregabalin) Compliance: Safety Checklist: - Are you taking proper precautions to safe guard your medication? Yes - Taking the medications as prescribed? Yes - Getting pain medications from another physician? No - Obtaining pain medication from another source? No - Sharing medications with friends/family? No - Quality of life improved as a result of taking these medications? Yes - Any side effect with this medication? No Justification for Continued Opioid Care: - Adequate analgesia? Yes - Aberrant drug seeking behavior? No - Adverse reactions? No - Medications improve quality of life? Yes Allergies: ALLERGIES Allergen Reactions - Lidocaine Hives - Steroids [Betametha* Hives Data Reviewed: - Reviewed personally on today's date 05/24/2022 Relevant Imaging: MRI Spine Report MRI LUMBAR SPINE WO CONTRAST Collected: 02/16/2010 8:25 AM (Final result) Complete Results MRI C-Spine 08/2021 ([facility]): Very mild degenerative changes ? MRI L-spine 11/2021 ([facility]): Very mild degenerative changes. Facet arthropathy at L1-2 through L5-S1. ? MRI Left Shoulder 10/2021 ([facility]): Small GH effusion, small degenerative change posterior-inferior labrum ? (Per Dr. Greene) MRI of the right shoulder from an outside facility is essentially normal with some (more content not included)... Normal [facility] CNPIliana 05-11-2022 TAYLER Telephone (AGSPHWG) ---- TORI GRAY ([id number]) 1980 F Date Time Provider Department 05/11/22 ELLE SANCHEZ AGSPHWG During your visit today, we recorded the following information about you: Livia Luna 05/11/2022 3:18 PM Signed Left brief message asking patient to call back with any questions or concerns about a recent appointment. Livia Luna LPN May 11, 2022 3:18 PM Allergies As of Date: 05/11/2022 Noted Allergy Reaction LIDOCAINE 12/24/2019 4 - Hives STEROIDS (BETAMETHASONE DIPROPION* 4 - Hives Date Reviewed: 05/10/2022 Reviewed by: Livia Luna - Fully Assessed Reason for Visit: Procedure Follow Up [1139] Prescriptions as of 05/11/2022 - albuterol HFA (VENTOLIN HFA) 90 mcg/actuation inhaler Inhale 2 Puffs as instructed every 4 hours as needed for wheezing/shortness of breath. - gabapentin (NEURONTIN) 100 mg capsule Take 2 capsules by mouth twice daily for 90 days. - topiramate (TOPAMAX) 50 mg tablet One tab daily - tiZANidine (ZANAFLEX) 4 mg tablet Take 1 tablet by mouth every 8 hours as needed. - CPAP Modem possibly not working. Downloads ceased last month. Please check device. - pregabalin (LYRICA) 75 mg capsule Take one pill at night for one week, then add one pill in the morning for one week, then take on pill 3 times per day thereafter - fexofenadine (ALMA ALLERGY) 180 mg tablet Take 1 tablet by mouth once daily. - omeprazole (PRILOSEC) 20 mg capsule Take 1 capsule by mouth daily before breakfast. 1/2 hr before meal. - lisinopril (ZESTRIL, PRINIVIL) 5 mg tablet Take 1 tablet by mouth once daily. - dulaglutide (TRULICITY) 0.75 mg/0.5 mL pen injector Inject 0.75 mg subcutaneously one time a week. Inject dose once per week. Discard Pen After - levonorgestrel (KYLEENA) 17.5 mcg/24 hrs (5 yrs) 19.5 mg IUD 1 Each by INTRAUTERINE route as directed. - CPAP Please fit with a Dreamwear under nose FFM. Patient with sore on bridge of nose and difficulties moving in bed with current PAP mask. - Ipratropium [place] (ATROVENT) 0.03 % nasal spray Use 2 Sprays in the nose every 12 hours. - metroNIDAZOLE (METROGEL) 0.75 % Topical Gel Apply to affected area twice daily. - Herrick-3 Fatty Acids (FISH OIL) 500 mg cap Take 1 capsule by mouth once daily. - blood sugar diagnostic (BLOOD GLUCOSE TEST) test strip Test blood sugar(s) 1 times daily. Dx: Type 2 DM - Controlled E11.9 Insulin: Yes - Lancets lancets Test blood sugar(s) 1 times daily. Dx: Type 2 DM - Controlled E11.9 Insulin: No - Dlcoqjcm-Mo-Dki-Fe- FA ( FORMULA) ORAL Tab Take 1 tablet by mouth once daily. Meds Comments as of 03/01/2019: Percocet March 01, 2019 Stephanie Suresh RN Problem List As Of Date 05/11/2022 Noted Resolved SUPERVIS NORMAL 1ST PREG [Z34.00] 11/09/2005 07/02/2006 TRANS HYPERTEN-ANTEPART [O13.9] 06/19/2006 07/02/2006 KERATOSIS PILARIS////SKIN ANOMALY NEC [Q82.8] 03/26/2007 01/23/2010 Other Acne [L70.8] 03/26/2007 FOLLICULITIS///HAIR DISEASES NEC [L67.8, L73.8] 03/26/2007 01/23/2010 Lichenification and Lichen Simplex Chronicus [L*03/26/2007 01/23/2010 DERMATOFIBROMA///BE NIGN KAILEY SKIN ARM [D23.60] 03/26/2007 01/23/2010 Contact Dermatitis and Other Eczema, due to Uns*03/26/2007 01/23/2010 SACROILIITIS [M46.1] 05/06/2009 01/23/2010 [facility]*01/23/2010 12/06/2012 Class: Chronic Routine gynecological examination [Z01.419] 01/23/2010 02/22/2014 Class: Chronic Morbid Obesity [E66.01] 01/23/2010 Lumbar Disc Disorder [M51.9] 02/16/2010 Routine general medical examination at health*12/06/2012 02/22/2014 Anxiety [F41.9] 06/07/2014 Type 2 diabetes mellitus with microalbuminuria,*0 07/04/2018 Fatty liver [K76.0] 07/21/2018 LETITIA (obstructive sleep apnea) [G47.33] 07/21/2018 Microalbuminuria [R80.9] 09/30/2018 Obesity, Class III, BMI >= 40 [E66.01] 11/26/2019 Prolonged Q-T interval on ECG [R94.31] 03/31/2020 Encounter Status:Closed by LIVIA LUNA on 05/11/[address] [facility] GLUCOSE, BLOOD (POC)on 05-10 Glucose [Mass/Vol] 104 mg/dL Abnormal 74 - 99 mg/dL [facility] CNCOon 03-29-[address] [facility] CNOVon 03-29-2022 CNOV Office Visit (SPAGWO) ---- TORI GRAY ([id number]) 1980 F Date Time Provider Department 03/29/22 11:00 AM ELLE SANCHEZGWO During your visit today, we recorded the following information about you: Pulse Respiration Normal [facility] CNPNon 03-29-2022 CNPN Telephone (SPAGWO) ---- ISAACTORI Ivan ([id number]) 1980 F Date Time Provider Department 03/29/22 ELLE SANCHEZ During your visit today, we recorded the following information about you: Terese Cruz 03/29/2022 12:53 PM Signed 1.Are you diabetic Yes. Please list the current medications being prescribed see list. 2. Are you on any blood thinners? No 3. Are you taking any aspirin? No 4. Have you had any recent imaging done on your body part that's being injected? No 5. Do you have any allergies to latex? No 6. Do you have any allergies to seafood? No 7. Do you have any allergies to shellfish? No 8. Do you have any allergies to x-ray dye? No 9. Are you taking Xanax for the procedure? No 10. Have you done physical therapy in the last year? No If yes, When and Where? (Medical Records Release needs to be signed.) 11. Were the pre-procedure instructions explained to the patient? Yes 12. Do you have a pacemaker? No 13. Do you have an internal stimulator of any kind? No If yes, please bring the remote with you to your procedure visit. 14. Have you received the COVID-19 Vaccine? Yes. If yes, date(s) received: 10/18/21 (Patient should not receive a procedure including steroids 14 days prior to their first dose of the COVID vaccine. They should not receive any procedure containing steroids in the time frame between their 1st and 2nd doses of the COVID vaccine. They should not receive a procedure containing steroids 14 days after their 2nd dose of the COVID vaccine.) Terese Cruz Allergies As of Date: 03/29/2022 Noted Allergy Reaction LIDOCAINE 12/24/2019 4 - Hives STEROIDS (BETAMETHASONE DIPROPION* 4 - Hives Date Reviewed: 03/29/2022 Reviewed by: Elle Sanchez MD - Fully Assessed Reason for Visit: Injections [199] Prescriptions as of 03/29/2022 - pregabalin (LYRICA) 75 mg capsule Take one pill at night for one week, then add one pill in the morning for one week, then take on pill 3 times per day thereafter - tiZANidine (ZANAFLEX) 4 mg tablet Take 1 tablet by mouth every 8 hours as needed. - fexofenadine (ALMA ALLERGY) 180 mg tablet Take 1 tablet by mouth once daily. - omeprazole (PRILOSEC) 20 mg capsule Take 1 capsule by mouth daily before breakfast. 1/2 hr before meal. - lisinopril (ZESTRIL, PRINIVIL) 5 mg tablet Take 1 tablet by mouth once daily. - topiramate (TOPAMAX) 50 mg tablet Take 1 tablet by mouth twice daily. - dulaglutide (TRULICITY) 0.75 mg/0.5 mL pen injector Inject 0.75 mg subcutaneously one time a week. Inject dose once per week. Discard Pen After - levonorgestrel (KYLEENA) 17.5 mcg/24 hrs (5 yrs) 19.5 mg IUD 1 Each by INTRAUTERINE route as directed. - albuterol HFA (VENTOLIN HFA) 90 mcg/actuation inhaler Inhale 2 Puffs as instructed every 4 hours as needed for Wheezing/Shortness of Breath. - CPAP Please fit with a Dreamwear under nose FFM. Patient with sore on bridge of nose and difficulties moving in bed with current PAP mask. - Ipratropium [place] (ATROVENT) 0.03 % nasal spray Use 2 Sprays in the nose every 12 hours. - metroNIDAZOLE (METROGEL) 0.75 % Topical Gel Apply to affected area twice daily. - Herrick-3 Fatty Acids (FISH OIL) 500 mg cap Take 1 capsule by mouth once daily. - blood sugar diagnostic (BLOOD GLUCOSE TEST) test strip Test blood sugar(s) 1 times daily. Dx: Type 2 DM - Controlled E11.9 Insulin: Yes - Lancets lancets Test blood sugar(s) 1 times daily. Dx: Type 2 DM - Controlled E11.9 Insulin: No - Mlwxwawc-Ir-Tgz-Fe- FA ( FORMULA) ORAL Tab Take 1 tablet by mouth once daily. Meds Comments as of 03/01/2019: Percocet March 01, 2019 Stephanie Suresh RN Problem List As Of Date 03/29/2022 Noted Resolved SUPERVIS NORMAL 1ST PREG [Z34.00] 11/09/2005 07/02/2006 TRANS HYPERTEN-ANTEPART [O13.9] 06/19/2006 07/02/2006 KERATOSIS PILARIS////SKIN ANOMALY NEC [Q82.8] 03/26/2007 01/23/2010 Other Acne [L70.8] 03/26/2007 FOLLICULITIS///HAIR DISEASES NEC [L67.8, L73.8] 03/26/2007 01/23/2010 Lichenification and Lichen Simplex Chronicus [L*03/26/2007 01/23/2010 DERMATOFIBROMA///BE NIGN KAILEY SKIN ARM [D23.60] 03/26/2007 01/23/2010 Contact Dermatitis and Other Eczema, due to Uns*03/26/2007 01/23/2010 SACROILIITIS [M46.1] 05/06/2009 01/23/2010 Routine general medical examination at a health*01/23/2010 12/06/2012 Class: Chronic Routine gynecological examination [Z01.419] 01/23/2010 02/22/2014 Class: Chronic Morbid Obesity [E66.01] 01/23/2010 Lumbar Disc Disorder [M51.9] 02/16/2010 Routine [facility] medical [facility] at a [facility]*12/06/2012 02/22/2014 Anxiety [F41.9] 06/07/2014 Type 2 diabetes mellitus with microalbuminuria,*0 07/04/2018 Fatty liver [K76.0] 07/21/2018 LETITIA (obstructive sleep apnea) [G47.33] 07/21/2018 Microalbuminuria [R80.9] 09/30/2018 Obesity, Class III, BMI >= 40 [E66.01] 11/26/2019 Prolo (more content not included)... Normal [facility] Basophil percentageon 2021 Cholesterol [Mass/Vol] 178 mg/dL <[address] [facility] Comment on above: <200 mg/dL Desirable 200-240 mg/dL Borderline >240 mg/dL High Risk Triglyceride [Mass/Vol] 183 mg/dL [facility] Comment on above: The drugs N-Acetylcy steine and Metamizole may falsely depress this assay.Serum Triglycerides Reference Interval Normal <150 mg/dL Borderline high 150 - 199 mg/dL High 200 - 499 mg/dL Very High > or = 500 mg/dL Bilirubin [Mass/Vol] 0.30 mg/dL 0.20-1.00 [facility] Work Phone: Comment on above: For patients on eltr ombopag therapy, use of Dimension [place] TBIL is not recommended. Chloride [Moles/Vol] 109 mmol/L 98-107 [facility] Work Phone: Glucose [Mass/Vol] 126 mg/dL 74-106 [facility] Work Phone: Comment on above: Fasting Glucose resu lt greater than or equal to 126 mg/dL suggests DIABETES MELLITUS per A.D.A. criteria. Potassium [Moles/Vol] 4.1 mmol/L 3.5-5.1 [facility] Work Phone: Protein [Mass/Vol] 8.4 g/dL 6.4-8.2 [facility] Work Phone: Sodium [Moles/Vol] 136 mmol/L 136-145 [facility] Work Phone: WBC (Bld) [#/Vol] 9.6 10*3/uL 4.4-11.0 [facility] Work Phone: Blood erythrocytes count (nu mber/volume)on 02-07-2022 RBC (Bld) [#/Vol] 4.63 10*6/uL 4.2-5.4 [facility] Work Phone: Blood hemoglobin measurement (mass/volume)on 02-07-2022 Hemoglobin (Bld) [Mass/Vol] 14.2 g/dL 12.0-15.0 [facility] Work Phone: Blood platelet mean volumeon 02-07-2022 Platelet mean volume (Bld) [Entitic vol] 9.5 fL 6.2-12.0 [facility] Work Phone: Determination of erythrocyte mean corpuscular volume (MCV)on 02-07-2022 MCV (RBC) [Entitic vol] 91.6 fL 81-99 [facility] Work Phone: Hematocrit Auto (Bld) [Volum e fraction]on 02-07-2022 Hematocrit (Bld) [Volume fraction] 42.4 % 37-47 [facility] Work Phone: LIPID PANEL (OUTSIDE)on VLDL Cholesterol 37 [facility] - Chemistry and C hemistry - challengeon 02-07-2022 ALP [Catalytic activity/Vol] 87 U/L 45-117 [facility] Work Phone: ALT [Catalytic activity/Vol] 29 U/L 13-56 [facility] Work Phone: CO2 [Moles/Vol] 23.0 mmol/L 21.0-32.0 [facility] Work Phone: Globulin (S) [Mass/Vol] 4.3 g/dL 2.2-4.2 [facility] Work Phone: Magnesium [Mass/Vol] 1.7 mg/dL 1.6-2.6 [facility] Work Phone: Urea nitrogen/Creatinine [Mass ratio] 15.1 mg/mg 10-20 [facility] Work Phone: Laboratory - Hematology and Cell countson 02-07-2022 Erythrocyte distribution width (RBC) [Entitic vol] 43.8 fL 35.1-43.9 [facility] Work Phone: Erythrocyte distribution width (RBC) [Ratio] 13.2 % 11.6-14.6 [facility] Work Phone: MCH (RBC) [Entitic mass] 30.7 pg 27.0-32.0 [facility] Work Phone: MCHC Auto (RBC) [Mass/Vol]on 02-07-2022 MCHC (RBC) [Mass/Vol] 33.5 g/dL 32-36 [facility] Work Phone: MICROALBUMIN/CREATININE UR W RATIO (EXTERNAL)on 02-07-2022 Albumin/Creat Ratio 153.4 [facility] Creatinine Urine 189 [facility] Microalbumin, Random urine 290 [facility] No Panel Informationon 02-07 Urine Microalbumin/Creatinine Ratio 153.4 mg/g CRE <30 [facility] Work Phone: Estimated GFR (MDRD) Amer 114 mL/min >60 [facility] Work Phone: Comment on above: GFR Calc Estimated GFR (MDRD) Non-Af Amer 94 mL/min >60 [facility] Work Phone: Comment on above: Non- GFR Calc Thyroid Stimulating Hormone (TSH) 2.76 uIU/mL 0.358-3.74 [facility] Work Phone: Platelets bldon 02-07-2022 Platelets (Bld) [#/Vol] 223 10*3/uL 150-450 [facility] Work Phone: Serum or plasma albumin sharron urement (mass/volume)on 02-07-2022 Albumin [Mass/Vol] 4.1 g/dL 3.2-5.0 [facility] Work Phone: Serum or plasma albumin/glob ulin mass ratioon 02-07-2022 Albumin/Globulin [Mass ratio] 1.0 {ratio} 0.9-2.4 [facility] Work Phone: Serum or plasma calcium sharron urement (mass/volume)on 02-07-2022 Calcium [Mass/Vol] 8.8 mg/dL 8.5-10.1 [facility] Work Phone: Serum or plasma cholesterol in HDL measurement (mass/volume)on 02-07-2022 Cholesterol in HDL [Mass/Vol] 37 mg/dL [facility] Comment on above: The drugs N-Acetylcy steine and Metamizole may falsely depress this assay. Reference Range HDL <40 mg/dL Low HDL Cholesterol HDL >or= 60 mg/dL High HDL Cholesterol Serum or plasma cholesterol in VLDL measurement (mass/volume)on 02-07-2022 Cholesterol in VLDL [Mass/Vol] 37 mg/dL 5-40 [facility] Work Phone: Serum or plasma creatinine m easurement (mass/volume)on 02-07-2022 Creatinine [Mass/Vol] 0.73 mg/dL 0.55-1.02 [facility] Work Phone: Comment on above: The validity of the calculated GFR & GFRAA in patients over 70 years has not been determined. Clinical correlation is essential. Serum or plasma low density lipoprotein (LDL) cholesterol measurement (mass/volume)on 02-07-2022 Cholesterol in LDL [Mass/Vol] 104 mg/dL 0-130 [facility] Serum or plasma urea nitroge n measurement (mass/volume)on 02-07-2022 Urea nitrogen [Mass/Vol] 11 mg/dL 7-18 [facility] Work Phone: TSH (EXTERNAL)on 02-07-2022 TSH 2.76 IU/ml 0.2 - 5.6 IU/ml [facility] Thin prep Papanicolaou smear with manual screeningon 02-07-2022 Thin prep Papanicolaou smear with manual screening 290.0 mg/L NO RANGE EST. [facility] Work Phone: Thin prep Papanicolaou smear with manual screening 13 U/L 15-37 [facility] Work Phone: Thin prep Papanicolaou smear with manual screening 4 5-15 [facility] Work Phone: Urine creatinine measurement (mass/volume)on 02-07-2022 Creatinine (U) [Mass/Vol] 189.00 mg/dL NO RANGE EST. [facility] Work Phone: Whole blood hemoglobin A1c/t otal hemoglobin ratio (mass fraction)on 02-07-2022 HbA1c (Bld) [Mass fraction] 5.1 % 3.8-5.6 [facility] Comment on above: Normal < 5.7 % Predi abetic 5.7 - 6.4 % Diabetic >or= 6.5 % Please note range changes. Hany 01-29-2022 TAYLER Telephone (AGSPINE3) ---- TORI GRAY ([id number]) 1980 F Date Time Provider Department 01/29/22 ELLE SANCHEZ [email or web address] During your visit today, we recorded the following information about you: Darrion Carson 01/29/2022 3:13 PM Signed ----- Message from Gale Quinonez sent at 01/29/2022 3:10 PM EDT ----- Regarding: FW: New Referral ----- Message ----- From: Juliana Carrillo Sent: 01/29/2022 7:34 AM EDT To: Calvin Gaytan, Gale Quinonez Subject: FW: New Referral ----- Message ----- From: Nirmala Storey LPN Sent: 01/26/2022 9:15 AM EDT To: Juliana Carrillo Subject: New Referral Dr Grimes and Dr Alfonso have suggested patient see Dr Sanchez for left shoulder pain. Thank you! Darrion Carson 01/29/2022 3:14 PM Signed I have attempted to contact this patient by phone, Left brief message on cell voicemail stating to call and schedule. Darrion Carson Allergies As of Date: 01/29/2022 Noted Allergy Reaction LIDOCAINE 12/24/2019 4 - Hives STEROIDS (BETAMETHASONE DIPROPION* 2 8 - GI Upset Date Reviewed: 01/25/2022 Reviewed by: Nirmala Storey LPN - Fully Assessed Reason for Visit: New Patient [172] Prescriptions as of 01/30/2022 - tiZANidine (ZANAFLEX) 4 mg tablet Take 1 tablet by mouth every 8 hours as needed. - fexofenadine (ALMA ALLERGY) 180 mg tablet Take 1 tablet by mouth once daily. - gabapentin (NEURONTIN) 100 mg capsule Take 2 capsules by mouth twice daily for 90 days. - omeprazole (PRILOSEC) 20 mg capsule Take 1 capsule by mouth daily before breakfast. 1/2 hr before meal. - lisinopril (ZESTRIL, PRINIVIL) 5 mg tablet Take 1 tablet by mouth once daily. - topiramate (TOPAMAX) 50 mg tablet Take 1 tablet by mouth twice daily. - dulaglutide (TRULICITY) 0.75 mg/0.5 mL pen injector Inject 0.75 mg subcutaneously one time a week. Inject dose once per week. Discard Pen After - levonorgestrel (KYLEENA) 17.5 mcg/24 hrs (5 yrs) 19.5 mg IUD 1 Each by INTRAUTERINE route as directed. - albuterol HFA (VENTOLIN HFA) 90 mcg/actuation inhaler Inhale 2 Puffs as instructed every 4 hours as needed for Wheezing/Shortness of Breath. - CPAP Please fit with a Dreamwear under nose FFM. Patient with sore on bridge of nose and difficulties moving in bed with current PAP mask. - Ipratropium [place] (ATROVENT) 0.03 % nasal spray Use 2 Sprays in the nose every 12 hours. - metroNIDAZOLE (METROGEL) 0.75 % Topical Gel Apply to affected area twice daily. - Herrick-3 Fatty Acids (FISH OIL) 500 mg cap Take 1 capsule by mouth once daily. - blood sugar diagnostic (BLOOD GLUCOSE TEST) test strip Test blood sugar(s) 1 times daily. Dx: Type 2 DM - Controlled E11.9 Insulin: Yes - Lancets lancets Test blood sugar(s) 1 times daily. Dx: Type 2 DM - Controlled E11.9 Insulin: No - Pllkhfgs-Mp-Jbx-Fe- FA ( FORMULA) ORAL Tab Take 1 tablet by mouth once daily. Meds Comments as of 03/01/2019: Percocet March 01, 2019 Stephanie Suresh RN Problem List As Of Date 01/29/2022 Noted Resolved SUPERVIS NORMAL 1ST PREG [Z34.00] 11/09/2005 07/02/2006 TRANS HYPERTEN-ANTEPART [O13.9] 06/19/2006 07/02/2006 KERATOSIS PILARIS////SKIN ANOMALY NEC [Q82.8] 03/26/2007 01/23/2010 Other Acne [L70.8] 03/26/2007 FOLLICULITIS///HAIR DISEASES NEC [L67.8, L73.8] 03/26/2007 01/23/2010 Lichenification and Lichen Simplex Chronicus [L*03/26/2007 01/23/2010 DERMATOFIBROMA///BE NIGN KAILEY SKIN ARM [D23.60] 03/26/2007 01/23/2010 Contact Dermatitis and Other Eczema, due to Uns*03/26/2007 01/23/2010 SACROILIITIS [M46.1] 05/06/2009 01/23/2010 Rout[facility] at [facility]*01/23/2010 12/06/2012 Class: Chronic Routine gynecological examination [Z01.419] 01/23/2010 02/22/2014 Class: Chronic Morbid Obesity [E66.01] 01/23/2010 Lumbar Disc Disorder [M51.9] 02/16/2010 Routine general medical examination at [facility]*12/06/2012 02/22/2014 Anxiety [F41.9] 06/07/2014 Type 2 diabetes mellitus with microalbuminuria,*0 07/04/2018 Fatty liver [K76.0] 07/21/2018 LETITIA (obstructive sleep apnea) [G47.33] 07/21/2018 Microalbuminuria [R80.9] 09/30/2018 Obesity, Class III, BMI >= 40 [E66.01] 11/26/2019 Prolonged Q-T interval on ECG [R94.31] 03/31/2020 Encounter Status:Closed by DARRION CARSON on 01/30/[address] [facility] - Microbiology an d Antimicrobial susceptibilityon 11-21-2021 SARS-CoV-2 (COVID-19) RNA ALLYSON+probe Ql (Unsp spec) Not detected [facility] Work Phone: Office Visit: Jojo Removal, possible other optionson 09-09-2017 Documentation of current medications (procedure) Done Invalid Interpretation Code [facility] [place] Fall risk assessment No Invalid Interpretation Code [facility] Tobacco smoking status NHIS Never Invalid Interpretation Code [facility] Tobacco use CPHS Never smoker Invalid Interpretation Code [facility] Office Visit: Spine Visit- L ow back pain BWCon 09-05-2017 Documentation of current medications (procedure) Done Invalid Interpretation Code [facility] Work Phone: Office Visit: Spine Visit- L ow back painon 09-03-2017 Documentation of current medications (procedure) Done Invalid Interpretation Code [facility] Work Phone: Office Visit: Spine Visit- L ow back BWCon 08-22-2017 Documentation of current medications (procedure) Done Invalid Interpretation Code [facility] Work Phone: Office Visiton 08-09-2017 Dietary management education, guidance, and counseling (procedure) yes Invalid Interpretation Code [facility] Work Phone: Tobacco smoking status NHIS Never Invalid Interpretation Code [facility] Work Phone: Tobacco use CPHS Never smoker Invalid Interpretation Code [facility] Work Phone: Office Visit: BWC: low back painon 05-02-2017 Fall risk assessment No Invalid Interpretation Code [facility] Work Phone: Office Visit: Jojo Removal, possible other optionson 06-04-2014 General categories [Interpretation] of Cervical or vaginal smear or scraping by Cyto stain Normal Invalid Interpretation Code [facility] [place] Vital Signs Date Time Vital Sign Value Performing Clinician Facility 03-22-2025 09:08-0400 Body height 170.[address] Ivette Grimes MD Work Phone: [facility] 01-22-2025 15:43-0400 Body mass index (BMI) [Ratio] 44.17 kg/m2 Ivette Grimes MD Work Phone: [facility] 01-22-2025 15:43-0400 Body weight 127.91 kg Ivette Grimes MD Work Phone: [facility] 01-22-2025 15:43-0400 Diastolic blood pressure 72 mm[Hg] Ivette Grimes MD Work Phone: [facility] 01-22-2025 15:43-0400 Heart rate 77 /min Ivette Grimes MD Work Phone: [facility] 01-22-2025 15:43-0400 SaO2% (BldA) [Mass fraction] 97 % Ivette Grimes MD Work Phone: [facility] 01-22-2025 15:43-0400 Systolic blood pressure 122 mm[Hg] Ivette Grimes MD Work Phone: [facility] 12-11-2024 11:08-0500 Body mass index (BMI) [Ratio] 43.4 kg/m2 Jenni Verenahof TRANSMITTER SUPERVISOR.ELECTROTYPER HELPER Work Phone: [facility] 12-11-2024 11:08-0500 Body temperature 97.81 [degF] Jenni Albaradohof TRANSMITTER SUPERVISOR.ELECTROTYPER HELPER Work Phone: [facility] 12-11-2024 11:08-0500 Body weight 125.7 kg Jenni Verenahof TRANSMITTER SUPERVISOR.ELECTROTYPER HELPER Work Phone: [facility] 12-11-2024 11:08-0500 Diastolic blood pressure 74 mm[Hg] Jenni Albaradohof TRANSMITTER SUPERVISOR.ELECTROTYPER HELPER Work Phone: [facility] 12-11-2024 11:08-0500 Heart rate 72 /min Jenni Albaradohof TRANSMITTER SUPERVISOR.ELECTROTYPER HELPER Work Phone: [facility] 12-11-2024 11:08-0500 Respiratory rate 16 /min Jenni Albaradohof TRANSMITTER SUPERVISOR.ELECTROTYPER HELPER Work Phone: [facility] 12-11-2024 11:08-0500 SaO2% (BldA) [Mass fraction] 99 % Jenni Albaradohof TRANSMITTER SUPERVISOR.ELECTROTYPER HELPER Work Phone: [facility] 12-11-2024 11:08-0500 Systolic blood pressure 138 mm[Hg] Jenni Albaradohof TRANSMITTER SUPERVISOR.ELECTROTYPER HELPER Work Phone: [facility] 11-11-2024 12:34-0500 Heart rate 74 /min Dr. Ivette Grimes MD Work Phone: [facility] 11-11-2024 12:34-0500 Respiratory rate 20 /min Dr. Ivette Grimes MD Work Phone: 1(040)440-579994 [place] [address] 11-11-2024 12:34-0500 SaO2% (BldA) [Mass fraction] 100 % Dr. Ivette Grimes MD Work Phone: 1(854)364-585794 [place] [address] 11-11-2024 11:00-0500 Diastolic blood pressure 60 mm[Hg] Dr. Ivette Grimes MD Work Phone: 9(631)764-898711 [place] [address] 11-11-2024 11:00-0500 Systolic blood pressure 108 mm[Hg] Dr. Ivette Grimes MD Work Phone: 6(882)020-879111 [place] [address] 11-11-2024 05:55-0500 Body height 170.[address] Ivette Grimes MD Work Phone: 6(439)191-959711 [place] [address] 11-11-2024 05:55-0500 Body mass index (BMI) [Ratio] 45.2 kg/m2 Dr. Ivette Grimes MD Work Phone: 2(200)254-924511 [place] [address] 11-11-2024 05:55-0500 Body temperature 97.5 [degF] Dr. Ivette Grimes MD Work Phone: 5(670)485-645911 [place] [address] 11-11-2024 05:55-0500 Body weight [address] Ivette Grimes MD Work Phone: 9(289)471-583511 [place] [address] 10-16-2024 21:50-0500 Body temperature 98 [degF] Dr. Ivette Grimes MD Work Phone: 3(700)659-104911 [place] [address] 10-16-2024 21:50-0500 Diastolic blood pressure 72 mm[Hg] Dr. Ivette Grimes MD Work Phone: 7(594)299-017011 [place] [address] 10-16-2024 21:50-0500 Heart rate 60 /min Dr. Ivette Grimes MD Work Phone: 7(129)946-108311 [place] [address] 10-16-2024 21:50-0500 Respiratory rate 16 /min Dr. Ivette Grimes MD Work Phone: 5(299)534-633311 [place] [address] 10-16-2024 21:50-0500 SaO2% (BldA) [Mass fraction] 95 % Dr. Ivette Grimes MD Work Phone: 7(915)667-204311 [place] [address] 10-16-2024 21:50-0500 Systolic blood pressure 137 mm[Hg] Dr. Ivette Grimes MD Work Phone: 0(167)534-585411 [place] [address] 10-16-2024 20:23-0500 Body mass index (BMI) [Ratio] 43 kg/m2 Dr. Ivette Grimes MD Work Phone: 1(676)111-670511 [place] [address] 10-16-2024 20:23-0500 Body weight 124.[address] Ivette Grimes MD Work Phone: [facility] 09-03-2024 12:51-0400 Body height 170.2 cm Fatuma Robertser PA-C Work Phone: [facility] 09-03-2024 12:51-0400 Body mass index (BMI) [Ratio] 43.8 kg/m2 Fatuma Robertser PA-C Work Phone: [facility] 09-03-2024 12:51-0400 Body weight 126.85 kg Fatuma Robertser PA-C Work Phone: [facility] 09-03-2024 12:51-0400 Diastolic blood pressure 71 mm[Hg] Fatuma Robertser PA-C Work Phone: [facility] 09-03-2024 12:51-0400 Heart rate 67 /min Fatuma Robertser PA-C Work Phone: [facility] 09-03-2024 12:51-0400 SaO2% (BldA) [Mass fraction] 97 % Fatuma Robertser PA-C Work Phone: [facility] 09-03-2024 12:51-0400 Systolic blood pressure 153 mm[Hg] Fatuma Robertser PA-C Work Phone: [facility] 08-05-2024 08:04-0400 Body mass index (BMI) [Ratio] 42.81 kg/m2 Ivette Grimes MD Work Phone: [facility] 08-05-2024 08:04-0400 Body weight 131.5 kg Ivette Grimes MD Work Phone: [facility] 08-05-2024 08:04-0400 Diastolic blood pressure 62 mm[Hg] Ivette Grimes MD Work Phone: [facility] 08-05-2024 08:04-0400 Heart rate 56 /min Ivette Grimes MD Work Phone: [facility] 08-05-2024 08:04-0400 SaO2% (BldA) [Mass fraction] 96 % Ivette Grimes MD Work Phone: [facility] 08-05-2024 08:04-0400 Systolic blood pressure 114 mm[Hg] Ivette Grimes MD Work Phone: [facility] 07-03-2024 15:29-0400 Body mass index (BMI) [Ratio] 41.94 kg/m2 Ivette Grimes MD Work Phone: [facility] 07-03-2024 15:29-0400 Body weight 128.82 kg Ivette Grimes MD Work Phone: [facility] 07-03-2024 15:29-0400 Diastolic blood pressure 82 mm[Hg] Ivette Girmes MD Work Phone: [facility] 07-03-2024 15:29-0400 Heart rate 78 /min Ivette Grimes MD Work Phone: [facility] 07-03-2024 15:29-0400 SaO2% (BldA) [Mass fraction] 98 % Ivette Grimes MD Work Phone: [facility] 07-03-2024 15:29-0400 Systolic blood pressure 152 mm[Hg] Ivette Grimes MD Work Phone: [facility] 04-02-2024 12:46-0400 Body height 175.3 cm Fatuma Robertser PA-C Work Phone: [facility] 04-02-2024 12:46-0400 Body mass index (BMI) [Ratio] 41.02 kg/m2 Fatuma Robertser PA-C Work Phone: [facility] 04-02-2024 12:46-0400 Body weight 126 kg Fatuma Robertser PA-C Work Phone: [facility] 04-02-2024 12:46-0400 Diastolic blood pressure 77 mm[Hg] Fatuma Robertser PA-C Work Phone: [facility] 04-02-2024 12:46-0400 Heart rate 59 /min Fatuma Robertser PA-C Work Phone: [facility] 04-02-2024 12:46-0400 SaO2% (BldA) [Mass fraction] 99 % Fatuma IRENE-C Work Phone: [facility] 04-02-2024 12:46-0400 Systolic blood pressure 135 mm[Hg] Fatuma IRENE-C Work Phone: [facility] 02-04-2024 04:03-0400 Body temperature 98 [degF] Dr. Ivette Grimes Work Phone: [facility] 02-04-2024 04:03-0400 Diastolic blood pressure 56 mm[Hg] Dr. Ivette Grimes Work Phone: [facility] 02-04-2024 04:03-0400 Heart rate 59 /min Dr. Ivette Grimes Work Phone: 5(406)832-146894 [place] [address] 02-04-2024 04:03-0400 Respiratory rate 16 /min Dr. Ivette Grimes Work Phone: [facility] 02-04-2024 04:03-0400 SaO2% (BldA) [Mass fraction] 100 % Dr. Ivette Grimes Work Phone: [facility] 02-04-2024 04:03-0400 Systolic blood pressure 107 mm[Hg] Dr. Ivette Grimes Work Phone: [facility] 02-04-2024 01:12-0400 Body height 170.[address] Ivette Grimes Work Phone: [facility] 02-04-2024 01:12-0400 Body mass index (BMI) [Ratio] 43 kg/m2 Dr. Ivette Grimes Work Phone: 2(532)855-127494 [place] [address] 02-04-2024 01:12-0400 Body weight 124.[address] Ivette Grimes Work Phone: [facility] 12-26-2023 10:10-0500 Body height 170.2 cm Fatuma IRENE-C Work Phone: [facility] 12-26-2023 10:10-0500 Body weight 123.35 kg Fatuma Robertser PA-C Work Phone: [facility] 12-26-2023 10:10-0500 Diastolic blood pressure 62 mm[Hg] Fatuma Robertser PA-C Work Phone: [facility] 12-26-2023 10:10-0500 Heart rate 68 /min Fatuma Robertser PA-C Work Phone: [facility] 12-26-2023 10:10-0500 Systolic blood pressure 118 mm[Hg] Fatuma Beckford PA-C Work Phone: [facility] 12-10-2023 05:52-0500 Body height 170.[address] Ivette Grimes Work Phone: [facility] 12-10-2023 05:52-0500 Body mass index (BMI) [Ratio] 42.3 kg/m2 Dr. Ivette Grimes Work Phone: [facility] 12-10-2023 05:52-0500 Body temperature 98 [degF] Dr. Ivette Grimes Work Phone: [facility] 12-10-2023 05:52-0500 Body weight 122.[address] Ivette Grimes Work Phone: [facility] 12-10-2023 05:52-0500 Diastolic blood pressure 61 mm[Hg] Dr. Ivette Grimes Work Phone: [facility] 12-10-2023 05:52-0500 Heart rate 68 /min Dr. Ivette Grimes Work Phone: [facility] 12-10-2023 05:52-0500 Respiratory rate 16 /min Dr. Ivette Grimes Work Phone: [facility] 12-10-2023 05:52-0500 SaO2% (BldA) [Mass fraction] 98 % Dr. Ivette Grimes Work Phone: [facility] 12-10-2023 05:52-0500 Systolic blood pressure 108 mm[Hg] Dr. Ivette Grimes Work Phone: [facility] 12-09-2023 17:15-0500 Body weight 122.92 kg Ivette Grimes MD Work Phone: [facility] 12-09-2023 17:15-0500 Diastolic blood pressure 62 mm[Hg] Ivette Grimes MD Work Phone: [facility] 12-09-2023 17:15-0500 Heart rate 60 /min Ivette Grimes MD Work Phone: [facility] 12-09-2023 17:15-0500 SaO2% (BldA) [Mass fraction] 97 % Ivette Grimes MD Work Phone: [facility] 12-09-2023 17:15-0500 Systolic blood pressure 124 mm[Hg] Ivette Grimes MD Work Phone: [facility] 10-27-2023 15:06-0500 Body height 170.18 cm [facility] 10-27-2023 15:06-0500 Body mass index (BMI) [Ratio] 43.9 kg/m2 Self [facility] 10-27-2023 15:06-0500 Body temperature 97 [degF] Self [facility] 10-27-2023 15:06-0500 Body weight 127.45 kg [facility] 10-27-2023 15:06-0500 Diastolic blood pressure 90 mm[Hg] Self [facility] 10-27-2023 15:06-0500 Heart rate 80 /min [facility] 10-27-2023 15:06-0500 Respiratory rate 16 /min Self [facility] 10-27-2023 15:06-0500 SaO2% (BldA) [Mass fraction] 98 % Self [facility] 10-27-2023 15:06-0500 Systolic blood pressure 173 mm[Hg] [facility] 08-07-2023 12:17-0400 Body temperature 97.5 [degF] Self [facility] 08-07-2023 12:17-0400 Diastolic blood pressure 75 mm[Hg] [facility] 08-07-2023 12:17-0400 Heart rate 53 /min [facility] 08-07-2023 12:17-0400 Respiratory rate 14 /min [facility] 08-07-2023 12:17-0400 SaO2% (BldA) [Mass fraction] 99 % [facility] 08-07-2023 12:17-0400 Systolic blood pressure 119 mm[Hg] [facility] 08-07-2023 11:00-0400 Body mass index (BMI) [Ratio] 47.2 kg/m2 [facility] 08-05-2023 17:16-0400 Body height 170.18 cm [facility] 08-05-2023 17:16-0400 Body weight 136.8 kg [facility] 08-05-2023 13:00-0400 Body temperature 97.4 [degF] Dr. Ivette Grimes Work Phone: 8(863)820-432594 [place] [address] 08-05-2023 13:00-0400 Diastolic blood pressure 76 mm[Hg] Dr. Ivette Grimes Work Phone: 0(089)450-895694 [place] [address] 08-05-2023 13:00-0400 Heart rate 58 /min Dr. Ivette Grimes Work Phone: [facility] 08-05-2023 13:00-0400 Respiratory rate 14 /min Dr. Ivette Grimes Work Phone: [facility] 08-05-2023 13:00-0400 SaO2% (BldA) [Mass fraction] 96 % Dr. Ivette Grimes Work Phone: [facility] 08-05-2023 13:00-0400 Systolic blood pressure 156 mm[Hg] Dr. Ivette Grimes Work Phone: [facility] 08-05-2023 11:33-0400 Body mass index (BMI) [Ratio] 47.2 kg/m2 Dr. Ivette Grimes Work Phone: 9(562)845-986494 [place] [address] 08-05-2023 09:51-0400 Body weight 136.[address] Ivette Grimes Work Phone: [facility] 08-05-2023 09:40-0400 Body height 170.[address] Ivette Grimes Work Phone: [facility] 06-07-2023 15:01-0400 Diastolic blood pressure 76 mm[Hg] Ivette Mejia Jr., MD Work Phone: [facility] 06-07-2023 15:01-0400 Heart rate 75 /min Ivette Mejia Jr., MD Work Phone: [facility] 06-07-2023 15:01-0400 Respiratory rate 16 /min Ivette Mejia Jr., MD Work Phone: [facility] 06-07-2023 15:01-0400 SaO2% (BldA) [Mass fraction] 97 % Ivette Mejia Jr., MD Work Phone: [facility] 06-07-2023 15:01-0400 Systolic blood pressure 138 mm[Hg] Ivette Mejia Jr., MD Work Phone: [facility] 06-06-2023 09:39-0400 Body weight 132 kg Ivette Grimes MD Work Phone: [facility] 06-06-2023 09:39-0400 Diastolic blood pressure 81 mm[Hg] Ivette Grimes MD Work Phone: [facility] 06-06-2023 09:39-0400 Heart rate 51 /min Ivette Grimes MD Work Phone: [facility] 06-06-2023 09:39-0400 SaO2% (BldA) [Mass fraction] 98 % Ivette Grimes MD Work Phone: [facility] 06-06-2023 09:39-0400 Systolic blood pressure 129 mm[Hg] Ivette Grimes MD Work Phone: [facility] 05-20-2023 22:47-0400 Diastolic blood pressure 88 mm[Hg] Dr. Ivette Grimes Work Phone: [facility] 05-20-2023 22:47-0400 Heart rate 78 /min Dr. Ivette Grimes Work Phone: [facility] 05-20-2023 22:47-0400 Respiratory rate 18 /min Dr. Ivette Grimes Work Phone: [facility] 05-20-2023 22:47-0400 SaO2% (BldA) [Mass fraction] 100 % Dr. Ivette Grimes Work Phone: [facility] 05-20-2023 22:47-0400 Systolic blood pressure 134 mm[Hg] Dr. Ivette Grimes Work Phone: [facility] 05-20-2023 21:28-0400 Body height 170.[address] Ivette Grimes Work Phone: [facility] 05-20-2023 21:28-0400 Body mass index (BMI) [Ratio] 45.4 kg/m2 Dr. Ivette Grimes Work Phone: [facility] 05-20-2023 21:28-0400 Body temperature 97.5 [degF] Dr. Ivette Grimes Work Phone: [facility] 05-20-2023 21:28-0400 Body weight 131.[address] Ivette Grimes Work Phone: [facility] 05-17-2023 10:04-0400 Body height 170.2 cm Fatuma Beckford PA-C Work Phone: [facility] 05-17-2023 10:04-0400 Body weight 132 kg Fatuma Beckford PA-C Work Phone: [facility] 05-17-2023 10:04-0400 Diastolic blood pressure 70 mm[Hg] Fatuma Beckford PA-C Work Phone: [facility] 05-17-2023 10:04-0400 Heart rate 68 /min Fatuma Beckford PA-C Work Phone: [facility] 05-17-2023 10:04-0400 SaO2% (BldA) [Mass fraction] 97 % Fatuma Queener PA-C Work Phone: [facility] 05-17-2023 10:04-0400 Systolic blood pressure 123 mm[Hg] Fatuma Robertser PA-C Work Phone: [facility] 03-05-2023 12:35-0400 Body temperature 97.81 [degF] Fatuma Robertser PA-C Work Phone: [facility] 03-05-2023 12:35-0400 Body weight 130.09 kg Fatuma Robertser PA-C Work Phone: [facility] 03-05-2023 12:35-0400 Diastolic blood pressure 76 mm[Hg] Fatuma Robertser PA-C Work Phone: [facility] 03-05-2023 12:35-0400 Heart rate 61 /min Fatuma Robertser PA-C Work Phone: [facility] 03-05-2023 12:35-0400 Respiratory rate 16 /min Fatuma Robertser PA-C Work Phone: [facility] 03-05-2023 12:35-0400 SaO2% (BldA) [Mass fraction] 98 % Fatuma Robertser PA-C Work Phone: [facility] 03-05-2023 12:35-0400 Systolic blood pressure 145 mm[Hg] Fatuma Robertser PA-C Work Phone: [facility] 03-05-2023 08:56-0400 Body height 170.2 cm Galina Camacho MD Work Phone: [facility] 03-05-2023 08:56-0400 Body weight 130.18 kg Galina Camacho MD Work Phone: [facility] 03-05-2023 08:56-0400 Diastolic blood pressure 82 mm[Hg] Galina Camacho MD Work Phone: [facility] 03-05-2023 08:56-0400 Systolic blood pressure 122 mm[Hg] Galina Camacho MD Work Phone: [facility] 02-28-2023 14:20-0400 Body weight 131.54 kg Ivette Grimes MD Work Phone: [facility] 02-28-2023 14:20-0400 Diastolic blood pressure 72 mm[Hg] Ivette Grimes MD Work Phone: [facility] 02-28-2023 14:20-0400 Heart rate 79 /min Ivette Grimes MD Work Phone: [facility] 02-28-2023 14:20-0400 SaO2% (BldA) [Mass fraction] 97 % Ivette Grimes MD Work Phone: [facility] 02-28-2023 14:20-0400 Systolic blood pressure 138 mm[Hg] Ivette Grimes MD Work Phone: [facility] 01-31-2023 09:21-0400 Body weight 130.18 kg Ivette Grimes MD Work Phone: [facility] 01-31-2023 09:21-0400 Diastolic blood pressure 82 mm[Hg] Ivette Grimes MD Work Phone: [facility] 01-31-2023 09:21-0400 Heart rate 65 /min Ivette Grimes MD Work Phone: [facility] 01-31-2023 09:21-0400 SaO2% (BldA) [Mass fraction] 98 % Ivette Grimes MD Work Phone: [facility] 01-31-2023 09:21-0400 Systolic blood pressure 120 mm[Hg] Ivette Grimes MD Work Phone: [facility] 01-24-2023 10:23-0400 Heart rate 64 /min Elle Sanchez MD Work Phone: [facility] 01-24-2023 10:23-0400 Respiratory rate 16 /min Elle Sanchez MD Work Phone: [facility] 01-24-2023 10:23-0400 SaO2% (BldA) [Mass fraction] 98 % Elle Sanchez MD Work Phone: [facility] 01-17-2023 11:21-0400 Body height 170.2 cm Ivette Grimes MD Work Phone: [facility] 01-17-2023 11:21-0400 Body weight 128.82 kg Ivette Grimes MD Work Phone: [facility] 01-17-2023 11:21-0400 Diastolic blood pressure 84 mm[Hg] Ivette Grimes MD Work Phone: [facility] 01-17-2023 11:21-0400 Heart rate 70 /min Ivette Grimes MD Work Phone: [facility] 01-17-2023 11:21-0400 SaO2% (BldA) [Mass fraction] 98 % Ivette Grimes MD Work Phone: [facility] 01-17-2023 11:21-0400 Systolic blood pressure 148 mm[Hg] Ivette Grimes MD Work Phone: [facility] 01-04-2023 11:30-0500 Body weight 128.37 kg Ivette Grimes MD Work Phone: [facility] 01-04-2023 11:30-0500 Diastolic blood pressure 78 mm[Hg] Ivette Grimes MD Work Phone: [facility] 01-04-2023 11:30-0500 Heart rate 85 /min Ivette Grimes MD Work Phone: [facility] 01-04-2023 11:30-0500 SaO2% (BldA) [Mass fraction] 97 % Ivette Grimes MD Work Phone: [facility] 01-04-2023 11:30-0500 Systolic blood pressure 132 mm[Hg] Ivette Grimes MD Work Phone: [facility] 12-28-2022 14:55-0500 Body height 170.[address] Ivette Grimes Work Phone: [facility] 12-28-2022 14:55-0500 Body mass index (BMI) [Ratio] 44.6 kg/m2 Dr. Ivette Grimes Work Phone: [facility] 12-28-2022 14:55-0500 Body weight 129.[address] Ivette Grimes Work Phone: [facility] 12-28-2022 14:55-0500 Diastolic blood pressure 79 mm[Hg] Dr. Ivette Grimes Work Phone: [facility] 12-28-2022 14:55-0500 Heart rate 71 /min Dr. Ivette Grimes Work Phone: [facility] 12-28-2022 14:55-0500 Respiratory rate 20 /min Dr. Ivette Grimes Work Phone: [facility] 12-28-2022 14:55-0500 Systolic blood pressure 130 mm[Hg] Dr. Ivette Grimes Work Phone: [facility] 12-26-2022 11:10-0500 Body height 170.2 cm Ivette Grimes MD Work Phone: [facility] 12-26-2022 11:10-0500 Body weight 128.37 kg Ivette Grimes MD Work Phone: [facility] 12-26-2022 11:10-0500 Diastolic blood pressure 74 mm[Hg] Ivette Grimes MD Work Phone: [facility] 12-26-2022 11:10-0500 Heart rate 83 /min Ivette Grimes MD Work Phone: [facility] 12-26-2022 11:10-0500 SaO2% (BldA) [Mass fraction] 97 % Ivette Grimes MD Work Phone: [facility] 12-26-2022 11:10-0500 Systolic blood pressure 140 mm[Hg] Ivette Grimes MD Work Phone: [facility] 12-14-2022 09:16-0500 Body height 170.2 cm Ivette Grimes MD Work Phone: [facility] 12-14-2022 09:16-0500 Body weight 125.65 kg Ivette Grimes MD Work Phone: [facility] 12-14-2022 09:16-0500 Diastolic blood pressure 98 mm[Hg] Ivette Grimes MD Work Phone: [facility] 12-14-2022 09:16-0500 Heart rate 75 /min Ivette Grimes MD Work Phone: [facility] 12-14-2022 09:16-0500 SaO2% (BldA) [Mass fraction] 98 % Ivette Grimes MD Work Phone: [facility] 12-14-2022 09:16-0500 Systolic blood pressure 160 mm[Hg] Ivette Grimes MD Work Phone: [facility] 12-07-2022 16:34-0500 Body temperature 98.8 [degF] Ivette Mejia Jr., MD Work Phone: [facility] 12-07-2022 16:34-0500 Body weight 126.01 kg Ivette Mejia Jr., MD Work Phone: [facility] 12-07-2022 16:34-0500 Diastolic blood pressure 94 mm[Hg] Ivette Mejia Jr., MD Work Phone: [facility] 12-07-2022 16:34-0500 Heart rate 72 /min Ivette Mejia Jr., MD Work Phone: [facility] 12-07-2022 16:34-0500 Respiratory rate 20 /min Ivette Mejia Jr., MD Work Phone: [facility] 12-07-2022 16:34-0500 SaO2% (BldA) [Mass fraction] 97 % Ivette Mejia Jr., MD Work Phone: [facility] 12-07-2022 16:34-0500 Systolic blood pressure 160 mm[Hg] Ivette Mejia Jr., MD Work Phone: [facility] 12-06-2022 08:07-0500 Body mass index (BMI) [Ratio] 43.4 kg/m2 Dr. Ivette Grimes Work Phone: [facility] 12-06-2022 08:07-0500 Body temperature 97.7 [degF] Dr. Ivette Grimes Work Phone: 8(265)814-211111 [place] [address] 12-06-2022 08:07-0500 Body weight 125.[address] Ivette Grimes Work Phone: 4(048)996-520711 [place] [address] 12-06-2022 08:07-0500 Diastolic blood pressure 79 mm[Hg] Dr. Ivette Grimes Work Phone: 1(459)308-566911 [place] [address] 12-06-2022 08:07-0500 Heart rate 70 /min Dr. Ivette Grimes Work Phone: 1(143)151-344111 [place] [address] 12-06-2022 08:07-0500 Respiratory rate 18 /min Dr. Ivette Grimes Work Phone: 6(690)353-963011 [place] [address] 12-06-2022 08:07-0500 SaO2% (BldA) [Mass fraction] 98 % Dr. Ivette Grimes Work Phone: 4(331)575-351511 [place] [address] 12-06-2022 08:07-0500 Systolic blood pressure 141 mm[Hg] Dr. Ivette Grimes Work Phone: 0(107)301-080611 [place] [address] 12-03-2022 20:26-0500 Heart rate 75 /min Dr. Ivette Grimes Work Phone: 0(701)317-562711 [place] [address] 12-03-2022 20:26-0500 Respiratory rate 18 /min Dr. Ivette Grimes Work Phone: 5(274)022-261911 [place] [address] 12-03-2022 20:26-0500 SaO2% (BldA) [Mass fraction] 96 % Dr. Ivette rGimes Work Phone: 0(106)065-148811 [place] [address] 12-03-2022 18:25-0500 Body mass index (BMI) [Ratio] 43.4 kg/m2 Dr. Ivette Grimes Work Phone: 4(760)063-814411 [place] [address] 12-03-2022 18:25-0500 Body temperature 97.8 [degF] Dr. Ivette Grimes Work Phone: 0(524)306-485911 [place] [address] 12-03-2022 18:25-0500 Body weight 125.[address] Ivette Grimes Work Phone: 7(932)894-014211 [place] [address] 12-03-2022 18:25-0500 Diastolic blood pressure 91 mm[Hg] Dr. Ivette Grimes Work Phone: 9(576)089-429794 [place] [address] 12-03-2022 18:25-0500 Systolic blood pressure 176 mm[Hg] Dr. Ivette Grimes Work Phone: 6(033)321-119611 [place] [address] 11-27-2022 14:36-0500 Body height 170.[address] Ivette Grimes Work Phone: 8(075)496-444311 [place] [address] 11-27-2022 14:36-0500 Body mass index (BMI) [Ratio] 42.7 kg/m2 Dr. Ivette Grimes Work Phone: 9(415)274-400611 [place] [address] 11-27-2022 14:36-0500 Body temperature 98.1 [degF] Dr. Ivette Grimes Work Phone: 9(175)475-231611 [place] [address] 11-27-2022 14:36-0500 Body weight 123.[address] Ivette Grimes Work Phone: 4(802)073-574894 [place] [address] 11-27-2022 14:36-0500 Diastolic blood pressure 81 mm[Hg] Dr. Ivette Grimes Work Phone: 4(800)243-233094 [place] [address] 11-27-2022 14:36-0500 Heart rate 70 /min Dr. Ivette Grimes Work Phone: 1(431)177-028294 [place] [address] 11-27-2022 14:36-0500 Respiratory rate 15 /min Dr. Ivette Grimes Work Phone: 6(747)742-686294 [place] [address] 11-27-2022 14:36-0500 SaO2% (BldA) [Mass fraction] 99 % Dr. Ivette Grimes Work Phone: 5(924)226-359494 [place] [address] 11-27-2022 14:36-0500 Systolic blood pressure 154 mm[Hg] Dr. Ivette Grimes Work Phone: [facility] 11-27-2022 13:51-0500 Body height 170.2 cm Ivette Grimes MD Work Phone: [facility] 11-27-2022 13:51-0500 Body weight 123.83 kg Ivette Grimes MD Work Phone: [facility] 11-27-2022 13:51-0500 Diastolic blood pressure 84 mm[Hg] Ivette Grimes MD Work Phone: [facility] 11-27-2022 13:51-0500 Heart rate 75 /min Ivette Grimes MD Work Phone: [facility] 11-27-2022 13:51-0500 SaO2% (BldA) [Mass fraction] 97 % Ivette Grimes MD Work Phone: [facility] 11-27-2022 13:51-0500 Systolic blood pressure 150 mm[Hg] Ivette Grimes MD Work Phone: [facility] 11-24-2022 15:07-0500 Heart rate 67 /min Dr. Ivette Grimes Work Phone: [facility] 11-24-2022 15:07-0500 SaO2% (BldA) [Mass fraction] 97 % Dr. Ivette Grimes Work Phone: [facility] 11-24-2022 13:43-0500 Diastolic blood pressure 64 mm[Hg] Dr. Ivette Grimes Work Phone: [facility] 11-24-2022 13:43-0500 Respiratory rate 16 /min Dr. Ivette Grimes Work Phone: [facility] 11-24-2022 13:43-0500 Systolic blood pressure 132 mm[Hg] Dr. Ivette Grimes Work Phone: [facility] 11-24-2022 11:44-0500 Body height 170.[address] Ivette Grimes Work Phone: 4(187)538-918318 [address] 11-24-2022 11:44-0500 Body mass index (BMI) [Ratio] 47.2 kg/m2 Dr. Ivette Grimes Work Phone: [facility] 11-24-2022 11:44-0500 Body temperature 97.9 [degF] Dr. Ivette Grimes Work Phone: 6(138)095-312194 [place] [address] 11-24-2022 11:44-0500 Body weight [address] Ivette Grimes Work Phone: [facility] 11-08-2022 13:35-0500 Heart rate 70 /min Adelina Mason TRANSMITTER SUPERVISOR.ELECTROTYPER HELPER Work Phone: [facility] 11-08-2022 13:35-0500 Respiratory rate 14 /min Adelina Mason TRANSMITTER SUPERVISOR.ELECTROTYPER HELPER Work Phone: [facility] 11-08-2022 13:35-0500 SaO2% (BldA) [Mass fraction] 98 % Adelina Mason TRANSMITTER SUPERVISOR.ELECTROTYPER HELPER Work Phone: [facility] 09-04-2022 11:50-0400 Body height 170.2 cm Ivette Grimes MD Work Phone: [facility] 09-04-2022 11:50-0400 Body weight 123.11 kg Ivette Grimes MD Work Phone: [facility] 09-04-2022 11:50-0400 Diastolic blood pressure 80 mm[Hg] Ivette Grimes MD Work Phone: [facility] 09-04-2022 11:50-0400 Heart rate 74 /min Ivette Grimes MD Work Phone: [facility] 09-04-2022 11:50-0400 SaO2% (BldA) [Mass fraction] 98 % Ivette Grimes MD Work Phone: [facility] 09-04-2022 11:50-0400 Systolic blood pressure 160 mm[Hg] Ivette Grimes MD Work Phone: [facility] 08-16-2022 12:57-0400 Body height 170.[address] Ivette Grimes Work Phone: [facility] Work Phone: 08-16-2022 12:57-0400 Body mass index (BMI) [Ratio] 42.3 kg/m2 Dr. Ivette Grimes Work Phone: [facility] 08-16-2022 12:57-0400 Body weight 122.[address] Ivette Grimes Work Phone: 6(160)812-380294 [place] [address] 08-16-2022 12:57-0400 Diastolic blood pressure 78 mm[Hg] Dr. Ivette Grimes Work Phone: 1(243)337-384311 [place] [address] 08-16-2022 12:57-0400 Heart rate 73 /min Dr. Ivette Grimes Work Phone: 4(769)480-024011 [place] [address] 08-16-2022 12:57-0400 Respiratory rate 16 /min Dr. Ivette Grimes Work Phone: 8(639)176-538911 [place] [address] 08-16-2022 12:57-0400 Systolic blood pressure 117 mm[Hg] Dr. Ivette Grimes Work Phone: 0(075)128-223311 [place] [address] 08-07-2022 07:38-0400 Body height 170.[address] Ivette Grimes Work Phone: 0(647)032-334411 [place] [address] Work Phone: 08-07-2022 07:38-0400 Body mass index (BMI) [Ratio] 42.5 kg/m2 Dr. Ivette Grimes Work Phone: 9(238)730-454211 [place] [address] 08-07-2022 07:38-0400 Body temperature 99.1 [degF] Dr. Ivette Grimes Work Phone: 1(881)923-712611 [place] [address] 08-07-2022 07:38-0400 Body weight 123.[address] Ivette Grimes Work Phone: 4(606)454-838611 [place] [address] 08-07-2022 07:38-0400 Diastolic blood pressure 81 mm[Hg] Dr. Ivette Grimes Work Phone: 9(442)236-093011 [place] [address] 08-07-2022 07:38-0400 Heart rate 65 /min Dr. Ivette Grimes Work Phone: 8(454)740-268311 [place] [address] 08-07-2022 07:38-0400 Respiratory rate 16 /min Dr. Ivette Grimes Work Phone: 3(565)323-917111 [place] [address] 08-07-2022 07:38-0400 SaO2% (BldA) [Mass fraction] 97 % Dr. Ivette Grimes Work Phone: 2(812)293-617811 [place] [address] 08-07-2022 07:38-0400 Systolic blood pressure 130 mm[Hg] Dr. Ivette Grimes Work Phone: [facility] 08-02-2022 09:50-0400 Body weight 122.02 kg Ivette Grimes MD Work Phone: [facility] 08-02-2022 09:50-0400 Diastolic blood pressure 82 mm[Hg] Ivette Grimes MD Work Phone: [facility] 08-02-2022 09:50-0400 Heart rate 60 /min Ivette Grimes MD Work Phone: [facility] 08-02-2022 09:50-0400 Systolic blood pressure 126 mm[Hg] Ivette Grimes MD Work Phone: [facility] 07-19-2022 12:57-0400 Body height 170.2 cm Karen Diederich TRANSMITTER SUPERVISOR.ELECTROTYPER HELPER Work Phone: [facility] 07-19-2022 12:57-0400 Body weight 122.92 kg Karen Diederich TRANSMITTER SUPERVISOR.ELECTROTYPER HELPER Work Phone: [facility] 07-19-2022 12:57-0400 Diastolic blood pressure 57 mm[Hg] Karen Diederich TRANSMITTER SUPERVISOR.ELECTROTYPER HELPER Work Phone: [facility] 07-19-2022 12:57-0400 Heart rate 76 /min Karen Diederich TRANSMITTER SUPERVISOR.ELECTROTYPER HELPER Work Phone: [facility] 07-19-2022 12:57-0400 Systolic blood pressure 115 mm[Hg] Karen Diederich TRANSMITTER SUPERVISOR.ELECTROTYPER HELPER Work Phone: [facility] 06-07-2022 15:13-0400 Body temperature 97.81 [degF] Tara Escamillahausyadiel TRANSMITTER SUPERVISOR.ELECTROTYPER HELPER Work Phone: [facility] 06-07-2022 15:13-0400 Body weight 119.84 kg Tara Dahlhausen TRANSMITTER SUPERVISOR.ELECTROTYPER HELPER Work Phone: [facility] 06-07-2022 15:13-0400 Diastolic blood pressure 68 mm[Hg] Tara Dahlhausen TRANSMITTER SUPERVISOR.ELECTROTYPER HELPER Work Phone: [facility] 06-07-2022 15:13-0400 Heart rate 80 /min Tara Dahlhausen TRANSMITTER SUPERVISOR.ELECTROTYPER HELPER Work Phone: [facility] 06-07-2022 15:13-0400 Respiratory rate 22 /min Tara Dahlhausen TRANSMITTER SUPERVISOR.ELECTROTYPER HELPER Work Phone: [facility] 06-07-2022 15:13-0400 SaO2% (BldA) [Mass fraction] 98 % Tara Dahlhausen TRANSMITTER SUPERVISOR.ELECTROTYPER HELPER Work Phone: [facility] 06-07-2022 15:13-0400 Systolic blood pressure 112 mm[Hg] Tara Dahlhausen TRANSMITTER SUPERVISOR.ELECTROTYPER HELPER Work Phone: [facility] 06-04-2022 14:39-0400 Body height 170.[address] Ivette Grimes Work Phone: [facility] Work Phone: 05-24-2022 11:01-0400 Heart rate 78 /min Adelina Mason TRANSMITTER SUPERVISOR.ELECTROTYPER HELPER Work Phone: [facility] 05-24-2022 11:01-0400 Respiratory rate 18 /min Adelina Mason TRANSMITTER SUPERVISOR.ELECTROTYPER HELPER Work Phone: [facility] 05-24-2022 11:01-0400 SaO2% (BldA) [Mass fraction] 98 % Adelina Crowfield TRANSMITTER SUPERVISOR.ELECTROTYPER HELPER Work Phone: [facility] 05-10-2022 10:54-0400 Diastolic blood pressure 75 mm[Hg] Elle Sanchez MD Work Phone: [facility] 05-10-2022 10:54-0400 Heart rate 61 /min Elle Sanchez MD Work Phone: [facility] 05-10-2022 10:54-0400 Respiratory rate 20 /min Elle Sanchez MD Work Phone: [facility] 05-10-2022 10:54-0400 SaO2% (BldA) [Mass fraction] 98 % Elle Sanchez MD Work Phone: [facility] 05-10-2022 10:54-0400 Systolic blood pressure 130 mm[Hg] Elle Sanchez MD Work Phone: [facility] 05-01-2022 14:39-0400 Body weight 118.39 kg Ivette Grimes MD Work Phone: [facility] 05-01-2022 14:39-0400 Diastolic blood pressure 80 mm[Hg] Ivette Grimes MD Work Phone: [facility] 05-01-2022 14:39-0400 Heart rate 68 /min Ivette Grimes MD Work Phone: [facility] 05-01-2022 14:39-0400 Respiratory rate 18 /min Ivette Grimes MD Work Phone: [facility] 05-01-2022 14:39-0400 SaO2% (BldA) [Mass fraction] 98 % Ivette Grimes MD Work Phone: [facility] 05-01-2022 14:39-0400 Systolic blood pressure 132 mm[Hg] Ivette Grimes MD Work Phone: [facility] 04-09-2022 15:29-0400 Body temperature 97.5 [degF] Ivette Mejia Jr., MD Work Phone: [facility] 04-09-2022 15:29-0400 Body weight 122.2 kg Ivette Mejia Jr., MD Work Phone: [facility] 04-09-2022 15:29-0400 Diastolic blood pressure 72 mm[Hg] Ivette Mejia Jr., MD Work Phone: [facility] 04-09-2022 15:29-0400 Heart rate 74 /min Ivette Mejia Jr., MD Work Phone: [facility] 04-09-2022 15:29-0400 Respiratory rate 18 /min Ivette Mejia Jr., MD Work Phone: [facility] 04-09-2022 15:29-0400 SaO2% (BldA) [Mass fraction] 97 % Ivette Mejia Jr., MD Work Phone: [facility] 04-09-2022 15:29-0400 Systolic blood pressure 138 mm[Hg] Ivette Mejia Jr., MD Work Phone: [facility] 03-29-2022 10:58-0400 Heart rate 62 /min Elle Sanchez MD Work Phone: [facility] 03-29-2022 10:58-0400 Respiratory rate 15 /min Elle Sanchez MD Work Phone: [facility] 03-29-2022 10:58-0400 SaO2% (BldA) [Mass fraction] 98 % Elle Sanchez MD Work Phone: [facility] 02-28-2022 16:31-0400 Body weight 120.66 kg Ivette Grimes MD Work Phone: [facility] 02-28-2022 16:31-0400 Diastolic blood pressure 82 mm[Hg] Ivette Grimes MD Work Phone: [facility] 02-28-2022 16:31-0400 Heart rate 72 /min Ivette Grimes MD Work Phone: [facility] 02-28-2022 16:31-0400 Systolic blood pressure 142 mm[Hg] Ivette Grimes MD Work Phone: [facility] 11-21-2021 13:58-0500 Body height 170.[address] Ivette Grimes Work Phone: [facility] Work Phone: 09-09-2017 14:42-0500 BMI (Body Mass Index) 41.78 kg/m2 Amparo Hitchcock MD [facility] 09-09-2017 14:42-0500 Body Temperature 98.5 [degF] Amparo Hitchcock MD [facility] 09-09-2017 14:42-0500 Body Temperature 98.49 [degF] Amparo Hitchcock MD [facility] 09-09-2017 14:42-0500 BP Diastolic 78 mm[Hg] Amparo Hitchcock MD [facility] 09-09-2017 14:42-0500 BP Systolic 137 mm[Hg] Amparo Hitchcock MD [facility] 09-09-2017 14:42-0500 Height 172.72 cm Amparo Hitchcock MD [facility] 09-09-2017 14:42-0500 Pulse (Heart Rate) 67 /min Amparo Hitchcock MD [facility] 09-09-2017 14:42-0500 Respiratory Rate 16 /min Amparo Hitchcock MD [facility] 09-09-2017 14:42-0500 Weight 124.65 kg Amparo Hitchcock MD [facility] 07-22-2017 16:06-0400 BMI (Body Mass Index) 39.53 kg/m2 [facility] Work Phone: 07-22-2017 16:06-0400 Pulse (Heart Rate) 95 /min [facility] Work Phone: 07-22-2017 16:06-0400 Respiratory Rate 22 /min [facility] Work Phone: 07-22-2017 16:06-0400 Weight 117.94 kg [facility] Work Phone: 05-10-2017 14:47-0400 Body Temperature 97.7 [degF] [facility] Work Phone: 05-10-2017 14:47-0400 BP Diastolic 84 mm[Hg] [facility] Work Phone: 05-10-2017 14:47-0400 BP Systolic 132 mm[Hg] [facility] Work Phone: 05-10-2017 14:47-0400 Height 172.72 cm Roya [facility] Work Phone: Encounters Encounter Date Encounter Type Care Provider Facility Start: 04-17-2025 ambulatory Brett Quiroga Facility :[facility] Start: 04-12-2025 End: 04-12-2025 ambulatory Ivette Grimes MD Work Phone: [facility] Comment on above: Muscle relaxer Start: 04-07-2025 End: 04-07-2025 Telephone encounter Ivette Grimes MD Work Phone: [facility] Comment on above: Rx Refills Start: 04-05-2025 End: 04-05-[address] Bibiana Rehman DC -[facility] Work Phone: Start: 04-05-2025 End: 04-05-[address] Ivette Grimes MD Work Phone: [facility] Work Phone: Start: 04-01-2025 End: 04-01-2025 Telephone encounter Amanda Arteaga PA-C Work Phone: Neurology Comment on above: Botox Approved Start: 03-22-2025 End: 03-22-[address] Brett Quiroga MD -[facility] Work Phone: Start: 03-22-2025 End: 03-22-[address] Ivette Grimes MD Work Phone: [facility] Work Phone: Start: 03-19-2025 End: 03-19-2025 Telephone encounter Amanda Arteaga PA-C Work Phone: Neurology Comment on above: Botox Referral Start: 03-11-2025 End: 03-11-[address] Ivette Grimes MD Work Phone: [facility] Work Phone: Start: 03-11-2025 End: 03-11-[address] Brett Quiroga MD -Radiology, [facility] Work Phone: Start: 03-11-2025 End: 03-11-2025 ambulatory Brett Quiroga Facility:[facility] Start: 03-09-2025 End: 03-09-[address] Bibiana Rehman DC -[facility] Work Phone: Start: 03-09-2025 End: 03-09-2025 ambulatory Bibiana Rehman Facility:[facility] Start: 03-09-[address] Ivette barry MD -Physical Therapy Work Phone: Start: 03-09-2025 End: 03-09-2025 Telemedicine consultation with patient Amanda Krystle IRENE-Mireya Work Phone: Neurology Start: 03-09-2025 End: 03-09-2025 ambulatory Amanda Krystle Arteaga PA-C Work Phone: Neurology Comment on above: Intractable chronic migraine without aura and with status migrainosus (Primary Dx) Start: 03-04-2025 End: 03-04-2025 Telephone encounter Amanda Arteaga PA-C Work Phone: Neurology Start: 03-02-2025 End: 03-02-2025 Telemedicine consultation with patient Ivette Grimes MD Work Phone: [facility] Start: 03-02-2025 End: 03-02-2025 ambulatory Ivette Grimes MD Work Phone: [facility] Comment on above: Intractable chronic migraine without aura and without status migrainosus (Primary Dx); Chronic left shoulder pain Start: 02-16-2025 ambulatory Ivette Grimes Facility:[facility] Start: 02-04-2025 End: 02-04-[address] Bibiana Rehman DC -[facility] Work Phone: Start: 02-04-2025 End: 02-04-2025 ambulatory Bibiana Rehman Facility:[facility] Start: 01-28-2025 End: 01-28-2025 Chart abstracting Ivette Grimes MD Work Phone: [facility] Start: 01-28-2025 End: 03-30-2025 Follow-up encounter Ivette Grimes MD Work Phone: [facility] Start: 01-28-2025 End: 02-08-2025 Telephone encounter Ivette Grimes MD Work Phone: [facility] Comment on above: PA new dose of ozemp ic Results Start: 01-28-2025 End: 01-28-[address] Ivette Grimes MD Work Phone: [facility] Work Phone: Start: 01-28-2025 End: 01-28-[address] Ivette Grimes MD -Laboratory Work Phone: Start: 01-28-2025 End: 01-28-2025 ambulatory [facility] Facility:[facility] Start: 01-22-2025 End: 01-22-2025 ambulatory IVETTE GRIMES Facility:[facility] Start: 01-22-2025 End: 01-22-2025 Patient encounter procedure Ivette Grimes MD Work Phone: [facility] Comment on above: LETITIA (obstructive sle ep apnea) (Primary Dx); Flank pain; Headache, unspecified headache type; Type 2 diabetes mellitus with microalbuminuria, with long-term current use of insulin (HCC); Essential (primary) hypertension; Chronic left shoulder pain; Anxiety; Screening for depression Start: 12-24-2024 End: 12-25-2024 Refill Ivette Grimes MD Work Phone: [facility] Comment on above: Refill Request Start: 12-21-2024 End: 12-24-2024 Telephone encounter Jenni Martínez APRN.CNP Work Phone: [facility] Comment on above: Results (Labs/Chest xray ) Start: 12-11-2024 End: 12-11-2024 Telephone encounter Ivette Grimes MD Work Phone: [facility] Comment on above: Orders Start: 12-11-2024 End: 12-11-2024 Patient encounter procedure Jenni Martínez SLITTING MACHINE OPERATOR-C -Radiology, [facility] Work Phone: Start: 12-11-2024 End: 12-11-2024 Office outpatient visit 25 minutes Jenni Martínez TRANSMITTER SUPERVISOR.ELECTROTYPER HELPER Work Phone: Family [facility] Comment on above: Sinobronchitis (Prim ziyad Dx); Hypokalemia Start: 12-11-2024 End: 12-11-2024 ambulatory JENNI [facility] Facility:[facility] Start: 12-11-2024 End: 12-11-2024 ambulatory [facility] Facility:[facility] Start: 11-25-2024 End: 11-25-2024 Refill Ivette Grimes MD Work Phone: Family [facility] Comment on above: Refill Request Start: 11-23-2024 End: 11-23-2024 Refill Ivette Grimes MD Work Phone: [facility] Comment on above: Refill Request Start: 11-17-2024 End: 12-18-2024 ambulatory Ivette Grimes MD Work Phone: [facility] Start: 11-11-2024 End: 11-11-2024 Emergency department patient visit Dr. Buddy Hall DO -Emergency Department Work Phone: Start: 10-26-2024 End: 10-26-2024 Refill Ivette Grimes MD Work Phone: Psychiatry Comment on above: Refill Request Start: 10-19-2024 End: 10-19-2024 ambulatory Ivette Grimes MD Work Phone: [facility] Comment on above: Flank pain (Primary Dx) Start: 10-19-2024 End: 10-19-2024 Telemedicine consultation with patient Ivette Grimes MD Work Phone: [facility] [place] Start: 10-19-2024 End: 10-19-[address] Bibiana Rehman DC -[facility] Work Phone: Start: 10-19-2024 End: 10-19-2024 ambulatory Bibiana Dossi Facility:[facility] Start: 10-16-2024 End: 10-16-2024 Emergency department patient visit Dr. Sam Pearl MD -Emergency Department Work Phone: Start: 10-07-2024 ambulatory Bibiana Valadezsi Facility:[facility] Start: 09-24-2024 End: 09-24-2024 ambulatory Ivette Grimes MD Work Phone: [facility] Comment on above: Dysuria (Primary Dx) ; Type 2 diabetes mellitus with microalbuminuria, with long-term current use of insulin (HCC); Primary insomnia Start: 09-24-2024 End: 09-24-2024 Telemedicine consultation with patient Ivette Grimes MD Work Phone: [facility] Start: 09-09-2024 End: 09-09-2024 ambulatory Bibiana Dossi Facility:[facility] Start: 09-03-2024 End: 09-03-2024 ambulatory FATUMA BECKFORD Facility:[facility] Start: 09-03-2024 End: 09-03-2024 Patient encounter procedure Fatuma Beckford PA-C Work Phone: Neurology Comment on above: Intractable chronic migraine without aura and without status migrainosus (Primary Dx) Start: 09-01-2024 End: 09-02-2024 Telephone encounter Fatuma Beckford PA-C Work Phone: Neurology Comment on above: Appointment Patient Question Start: 08-25-2024 End: 08-25-2024 ambulatory Bibiana Dossi Facility:[facility] Start: 08-13-2024 End: 08-13-2024 ambulatory Bibiana Dossi [facility] Start: 08-11-2024 End: 08-11-2024 Telephone encounter Fatuma Beckford PA-C Work Phone: Neurology Comment on above: Appointment Start: 08-10-2024 End: 08-11-2024 Refill Ivette Grimes MD Work Phone: [facility] Comment on above: Refill Request Start: 08-05-2024 End: 08-06-2024 Telephone encounter Ivette Grimes MD Work Phone: [facility] [place] Comment on above: Insurance Authorizat ion (Ozempic ) Start: 08-05-2024 End: 08-05-2024 ambulatory IVETTE James SYDNEY Facility:[facility] Start: 08-05-2024 End: 08-05-2024 Patient encounter procedure Ivette Grimes MD Work Phone: [facility] [place] Comment on above: Well adult exam (Carolyn alyssa Dx); Essential (primary) hypertension; LETITIA (obstructive sleep apnea); Nonalcoholic fatty liver; Type 2 diabetes mellitus with microalbuminuria, with long-term current use of insulin (HCC); Vertigo; Morbid obesity (HCC); Anxiety; Prolonged Q-T interval on ECG; Herniation of lumbar intervertebral disc with radiculopathy Start: 08-05-2024 End: 08-05-2024 Patient encounter status Ivette Grimes MD Work Phone: [facility] Start: 07-30-2024 End: 07-30-2024 ambulatory [facility] Facility:[facility] Start: 07-24-2024 End: 07-27-2024 Refill Ivette Grimes MD Work Phone: Psychiatry Comment on above: Refill Request Start: 07-22-2024 End: 07-22-2024 ambulatory [facility] Facility:[facility] Start: 07-21-2024 End: 07-21-2024 Telephone encounter Ivette Grimes MD Work Phone: [facility] [place] Comment on above: Orders Start: 07-16-2024 End: 07-16-2024 ambulatory [facility] Facility:[facility] Start: 07-09-2024 End: 07-10-2024 Telephone encounter Ivette Grimes MD Work Phone: [facility] [place] Comment on above: Patient Question Start: 07-08-2024 End: 07-08-2024 Chart abstracting Ivette Grimes MD Work Phone: [facility] [place] Start: 07-08-2024 End: 07-08-2024 Telephone encounter Ivette Grimes MD Work Phone: [facility] [place] Comment on above: Results Start: 07-07-2024 End: 07-07-2024 Chart abstracting Ivette Grimes MD Work Phone: [facility] [place] Start: 07-03-2024 End: 07-03-2024 Patient encounter procedure Ivette Grimes MD Work Phone: Family [facility] [place] Comment on above: Bronchitis (Primary Dx); Type 2 diabetes mellitus with microalbuminuria, with long-term current use of insulin (HCC); Wheezing Start: 07-03-2024 End: 07-04-2024 ambulatory IVETTE GRIMES Facility:[facility] Start: 07-02-2024 End: 07-02-2024 ambulatory Bibiana Rehman Facility[facility] Start: 06-27-2024 End: 06-29-2024 Refill Ivette Grimes MD Work Phone: [facility] [place] Comment on above: Refill Request Start: 06-11-2024 ambulatory Ivette Grimes MD Work Phone: [facility] [place] Comment on above: Good Afternoon Start: 06-05-2024 ambulatory Fatuma vásquez PA-C Work Phone: Neurology Comment on above: Botox Start: 06-05-2024 E-mail encounter fro m caregiver Fatuma Beckford PA-C Work Phone: Neurology Start: 06-04-2024 Telephone encounter Fatuma perales PA-C Work Phone: Neurology Comment on above: Insurance Authorizat ion ([employer]) Start: 06-04-2024 End: 06-04-2024 ambulatory Bibiana Rehman Facility:[facility] Start: 06-03-2024 End: 06-03-2024 ambulatory Ivette Grimes MD Work Phone: [facility] [place] Comment on above: Left sided sciatica (Primary Dx); Screening for depression Start: 06-03-2024 End: 06-03-2024 Telemedicine consultation with patient Ivette Grimes MD Work Phone: [facility] [place] Start: 05-12-2024 End: 05-12-2024 Refill Ivette Grimes MD Work Phone: [facility] Comment on above: Refill Request Start: 05-01-2024 Telephone encounter Ivette Grimes MD Work Phone: [facility] Comment on above: medication not on cu rrent medication list Start: 04-20-2024 Refill Ivette Grimes MD Work Phone: [facility] Comment on above: Refill Request Start: 04-19-2024 Refill Ivette Grimes MD Work Phone: [facility] Comment on above: Refill Request Start: 04-14-2024 Refill Grace Child u TRANSMITTER SUPERVISOR.ELECTROTYPER HELPER Work Phone: Psychiatry Comment on above: Refill Request Insurance Authorizat ion (Trulicity ) Start: 04-06-2024 Telephone encounter Fatuma perales PA-C Work Phone: Neurology Comment on above: Insurance Authorizat ion (Botox ) Start: 04-02-2024 End: 04-02-2024 Patient encounter procedure Fatuma TOLEDOC Work Phone: Neurology Comment on above: Intractable chronic migraine without aura and without status migrainosus (Primary Dx) Start: 02-28-2024 Refill Stephanie Paz APRN.ELECTROTYPER HELPER Work Phone: [facility] Comment on above: Refill Request Start: 02-04-2024 End: 02-04-2024 Emergency department patient [facility] Start: 01-22-2024 Refill Ivette Grimes MD Work Phone: [facility] Comment on above: Refill Request Start: 01-01-2024 Refill Grace Child u TRANSMITTER SUPERVISOR.ELECTROTYPER HELPER Work Phone: Psychiatry Comment on above: Refill Request Start: 12-27-2023 Telephone encounter Fatuma IRENE-C Work Phone: Neurology Comment on above: Insurance Authorizat ion Start: 12-26-2023 End: 12-26-2023 Patient encounter procedure Fatuma Beckford PA-C Work Phone: Neurology Comment on above: Intractable chronic migraine without aura and without status migrainosus (Primary Dx) Start: 12-10-2023 End: 12-10-[address] Ivette Grimes Work Phone: [facility] Work Phone: Start: 12-09-2023 End: 12-09-2023 Patient encounter procedure Ivette Grimes MD Work Phone: [facility] Comment on above: Essential (primary) hypertension (Primary Dx); LETITIA (obstructive sleep apnea); Fatty liver; Vertigo; Anxiety Start: 12-09-2023 Telephone encounter Ivette Grimes MD Work Phone: [facility] Comment on above: Orders Start: 12-06-2023 End: 12-06-[address] Ivette Grimes Work Phone: [facility] Work Phone: Start: 12-06-2023 End: 12-06-[address] Ivette Grimes Work Phone: [facility]-Laboratory, OP Pavilion Start: 12-05-2023 ambulatory Ivette Grimes MD Work Phone: [facility] Comment on above: Labs Start: 10-27-2023 End: 10-27-2023 Emergency department patient visit Self Referred [facility]-Emergency Department Work Phone: Start: 10-14-2023 Refill Ivette Grimes MD Work Phone: [facility] Comment on above: Refill Request Start: 09-23-2023 Refill Adriana Patel Work Phone: Psychiatry Comment on above: Refill Request Start: 09-12-2023 End: 09-12-2023 Patient encounter procedure Self Referred [facility] Work Phone: Start: 09-09-2023 Refill Ivette Grimes MD Work Phone: [facility] [place] Comment on above: Refill Request Start: 08-21-2023 E-mail encounter escobar m caregiver [facility] Start: 08-21-2023 Patient encounter procedure [facility] Provider Neurology Comment on above: Botox Appointment Start: 08-20-2023 Telephone encounter Ivette Grimes MD Work Phone: [facility] [place] Comment on above: Forms ([facility] preventat ashish care ) Start: 08-15-2023 End: 08-15-2023 Patient encounter [facility] Work Phone: Start: 08-07-2023 Non-patient / Non-visit Self Referre d [facility] Work Phone: Start: 08-06-2023 Non-patient / Non-visit Self Referre d [facility] Work Phone: Start: 08-06-2023 Non-patient / Non-visit Self Referre d [facility] Start: 08-05-2023 End: 08-07-2023 Evaluation and management of inpatient Dr. Ivette Grimes Work Phone: [facility]-Progressive Care Unit Work Phone: Start: 08-05-[address] Reji Grimes Work Phone: [facility] Work Phone: Start: 08-01-2023 End: 08-01-[address] [facility] Work Phone: Start: 08-01-2023 End: 08-01-2023 ambulatory Self Referred [facility] Work Phone: Start: 08-01-2023 End: 08-01-2023 Discharged Recurring Self Referred [facility]-Physical Therapy Work Phone: Start: 08-01-[address] Greald Grimes Work Phone: [facility]-Physical Therapy Work Phone: Start: 07-18-2023 End: 07-18-[address] Ivette Grimes Work Phone: [facility] Work Phone: Start: 07-18-2023 End: 07-18-[address] Ivette Grimes Work Phone: [facility] Work Phone: Start: 07-18-2023 End: 07-18-[address] Ivette Grimes Work Phone: [facility]-Physical Therapy Work Phone: Start: 07-05-2023 Refill Ivette Grimes MD Work Phone: [facility] Comment on above: Refill Request Start: 06-20-2023 End: 06-20-[address] Ivette Grimes Work Phone: [facility] Work Phone: Start: 06-19-2023 End: 06-20-2023 Patient encounter procedure Umesh Davisbecca Work Phone: Podiatry Comment on above: Plantar fasciitis (P rimary Dx); Calcaneal spur of right foot Start: 06-08-2023 Refill Grace morales APRN.CNP Work Phone: Psychiatry Comment on above: Refill Request Start: 06-07-2023 End: 06-07-2023 Patient encounter procedure Ivette Mejia MD Work Phone: Neurology Comment on above: Memory loss (Primary Dx); Attention and concentration deficit; Post concussion syndrome; Intractable migraine without aura and without status migrainosus; LETITIA (obstructive sleep apnea) Start: 06-06-2023 End: 06-06-[address] Ivette Grimes Work Phone: [facility] Work Phone: Start: 06-06-2023 End: 06-06-2023 Patient encounter procedure Ivette Grimes MD Work Phone: Family [facility] Comment on above: Type 2 diabetes fred itus with microalbuminuria, with long-term current use of insulin (HCC) (Primary Dx); Chronic left shoulder pain; Herniation of lumbar intervertebral disc with radiculopathy; Essential (primary) hypertension; Nonalcoholic fatty liver; Intractable chronic migraine without aura and without status migrainosus; LETITIA (obstructive sleep apnea); Encounter for screening mammogram for malignant neoplasm of breast; Headache, unspecified headache type Start: 05-29-2023 End: 05-29-2023 Patient encounter procedure Isiah King STEVE Work Phone: [facility] Comment on above: Foot pain, right (Pr imary Dx) Start: 05-29-2023 Telephone encounter Nicole vaca PA-C Work Phone: Urgent Care Comment on above: Pt requesting Boot Start: 05-28-2023 End: 05-28-2023 Subsequent hospital visit by physician X[facility] Work Phone: Radiology Comment on above: Pain of right heel [ M79.671] Start: 05-20-2023 End: 05-20-2023 Emergency department patient visit Dr. Ivette Grimes Work Phone: [facility]-Emergency Department Work Phone: Start: 05-17-2023 End: 05-17-2023 Patient encounter procedure Fatuma Beckford PA-C Work Phone: Neurology Comment on above: Intractable chronic migraine without aura and without status migrainosus (Primary Dx); Post concussive syndrome Start: 05-09-[address] Gerald Grimes Work Phone: [facility]-Physical Therapy Work Phone: Start: 05-07-2023 Refill Ivette Grimes MD Work Phone: [facility] Comment on above: Refill Request Start: 04-30-2023 End: 04-30-[address] Ivette Grimes Work Phone: [facility] Work Phone: Start: 04-16-2023 End: 04-16-[address] Ivette Grimes Work Phone: [facility] Work Phone: Start: 04-04-2023 Refill Ivette Grimes MD Work Phone: [facility] Comment on above: Refill Request Start: 04-02-2023 End: 04-02-[address] Ivette Grimes Work Phone: [facility] Work Phone: Start: 04-02-2023 End: 04-02-[address] Ivette Grimes Work Phone: [facility] Work Phone: Start: 04-02-2023 End: 04-02-[address] Ivette Grimes Work Phone: [facility]-Pulmonary Services/Neurology Work Phone: Start: 03-20-2023 Telephone encounter Fatuma perales PA-C Work Phone: Neurology Comment on above: Medication Authoriza tion (Botox renewal ) Start: 03-19-2023 End: 03-19-[address] Ivette Grimes Work Phone: [facility] Work Phone: Start: 03-12-2023 ambulatory Fatuma vásquez PA-C Work Phone: Neurology Comment on above: EEG Start: 03-09-2023 ambulatory Karen lópez APRN.ELECTROTYPER HELPER Work Phone: Neurology Comment on above: Botox Start: 03-05-[address] Gerald Grimes Work Phone: [facility]-Physical Therapy Start: 03-05-2023 End: 03-05-2023 Patient encounter procedure Galina Camacho MD Work Phone: OB/Gynecology Comment on above: Encounter for gyneco logical examination (general) (routine) without abnormal findings (Primary Dx) Post concussion synd roberta (Primary Dx); LETITIA (obstructive sleep apnea); Intractable acute post-traumatic headache; Altered awareness, transient Start: 03-05-2023 End: 03-05-2023 Patient encounter status Galina Camacho MD Work Phone: OB/Gynecology Start: 03-04-2023 End: 03-04-2023 ambulatory Ivette Grimes MD Work Phone: [facility] Comment on above: Question regarding M ICROALBUMIN/CREATININE UR W RATIO (EXTERNAL) labs Start: 03-04-2023 E-mail encounter fro m caregiver Ivette Grimes MD Work Phone: [facility] [place] Start: 03-04-2023 Telephone encounter Ivette Grimes MD Work Phone: [facility] Comment on above: Medication change re quested Start: 03-04-2023 End: 03-04-[address] Ivette Grimes Work Phone: [facility]-Laboratory, OP Pavilion Start: 03-01-2023 Telephone encounter Ivette Mejia MD Work Phone: Neurology Comment on above: Appointment Start: 03-01-2023 End: 03-01-2023 Patient encounter procedure Ivette Mejia MD Work Phone: Neurology Comment on above: Post concussion synd roberta (Primary Dx); LETITIA (obstructive sleep apnea) Start: 02-28-2023 End: 02-28-2023 Patient encounter procedure Ivette Grimes MD Work Phone: [facility] Comment on above: Soft tissue mass (Pr imary Dx); Post concussive syndrome; Essential (primary) hypertension; Type 2 diabetes mellitus with microalbuminuria, with long-term current use of insulin (HCC); Headache, unspecified headache type; Myalgia Start: 02-28-2023 End: 02-28-[address] Ivette Grmies Work Phone: [facility] Start: 02-28-2023 End: 02-28-2023 Subsequent hospital visit by physician Mri [facility] (I-Stat/1.5t) Work Phone: Radiology Comment on above: Post concussion synd roberta [F07.81] Start: 02-27-2023 Telephone encounter Ivette Grimes MD Work Phone: Family [facility] Comment on above: Medication Request Start: 02-22-2023 Refill Ivette Grimes MD Work Phone: Family [facility] Comment on above: Refill Request Start: 02-15-2023 End: 02-15-2023 [facility] Grace Coronel APRN.CNP Work Phone: Psychiatry Comment on above: VAHE (generalized anx iety disorder) (Primary Dx); Recurrent major depressive disorder, in full remission (HCC) Start: 02-14-2023 End: 02-14-[address] Ivette Grimes Work Phone: [facility] Start: 02-14-[address] Gerald Grimes Work Phone: [facility]-Physical Therapy Start: 02-11-2023 Refill Ivette Grimes MD Work Phone: [facility] Comment on above: Refill Request Start: 02-09-2023 Telephone encounter Ivette Grimes MD Work Phone: [facility] Comment on above: Results Start: 02-08-2023 End: 02-08-[address] Ivette Grimes Work Phone: [facility] Work Phone: Start: 02-08-2023 End: 02-08-[address] Ivette Grimes Work Phone: [facility]-Ultrasound, [facility] Start: 01-31-2023 Telephone encounter Ivette Grimes MD Work Phone: [facility] Comment on above: Orders Start: 01-31-2023 End: 01-31-[address] Ivette Grimes Work Phone: [facility] Start: 01-31-2023 End: 01-31-2023 Patient encounter procedure Ivette Grimes MD Work Phone: [facility] Comment on above: Post concussive synd roberta (Primary Dx); Headache, unspecified headache type; Injury of neck, subsequent encounter Start: 01-24-2023 End: 01-24-2023 ambulatory ELLE SANCHEZ Facility:[facility] Start: 01-24-2023 End: 01-24-2023 Patient encounter procedure Elle Sanchez MD Work Phone: [facility] Comment on above: Chronic left shoulde r pain (Primary Dx); Adhesive capsulitis of left shoulder; Neuropathic pain; Primary osteoarthritis of left shoulder; Myofascial pain; Lumbar spondylosis Start: 01-22-2023 End: 01-22-2023 Patient encounter procedure Karen Bansal APRN.CNP Work Phone: Neurology Comment on above: Intractable chronic migraine without aura and without status migrainosus (Primary Dx) Start: 01-17-2023 End: 01-17-[address] Ivette Grimes Work Phone: [facility] Work Phone: Start: 01-17-2023 End: 01-17-[address] Ivette Grimes Work Phone: [facility]-Physical Therapy Start: 01-17-2023 End: 01-17-2023 Patient encounter procedure Ivette Grimes MD Work Phone: [facility] Comment on above: Post concussive synd roberta (Primary Dx); Headache, unspecified headache type; Injury of neck, subsequent encounter Start: 01-17-2023 End: 01-17-[address] Ivette Grimes Work Phone: [facility] Start: 01-09-2023 Refill Ivette Grimes MD Work Phone: [facility] Comment on above: Refill Request Start: 01-08-2023 Telephone encounter Ivette Grimes MD Work Phone: [facility] Comment on above: Insurance Authorizat ion (Trulicity ) Start: 01-04-2023 End: 01-04-2023 Patient encounter procedure Ivette Grimes MD Work Phone: [facility] Comment on above: Post concussive synd roberta (Primary Dx); Headache, unspecified headache type Start: 01-03-2023 End: 01-03-[address] Ivette Grimes Work Phone: [facility] Start: 01-02-2023 End: 01-02-2023 ambulatory [facility] Facility:[facility] Start: 01-01-2023 Telephone encounter Ivette Grimes MD Work Phone: [facility] [place] Comment on above: Patient Update Start: 12-28-2022 End: 12-28-[address] Ivette Grimes Work Phone: [facility] Start: 12-26-2022 End: 12-26-2022 Patient encounter procedure Ivette Grimes MD Work Phone: [facility] Comment on above: Post concussion synd roberta (Primary Dx); Essential (primary) hypertension Refill Request Start: 12-24-2022 Refill Karen lópez APRN.CNP Work Phone: Neurology Comment on above: Refill Request MRI'S need prior aut horization with workman comp Start: 12-20-2022 End: 12-20-[address] Ivette Grimes Work Phone: [facility] Start: 12-14-2022 End: 12-14-2022 Patient encounter procedure Ivette Grimes MD Work Phone: [facility] Comment on above: Post concussion synd roberta (Primary Dx); Essential (primary) hypertension; Microalbuminuria; Type 2 diabetes mellitus without complication, with long-term current use of insulin (HCC) Start: 12-11-2022 Refill Ivette Grimes MD Work Phone: [facility] Comment on above: Refill Request Mri Start: 12-07-2022 End: 12-07-2022 Patient encounter procedure Ivette Mejia MD Work Phone: Neurology Comment on above: Post concussion synd roberta (Primary Dx); Intractable acute post-traumatic headache; Dizziness; Cervicalgia; History of migraine; LETITIA (obstructive sleep apnea) Start: 12-07-2022 End: 12-07-2022 Patient encounter procedure Ivette Grimes MD Work Phone: [facility] Comment on above: Headache, unspecifie d headache type (Primary Dx); Concussion with loss of consciousness, initial encounter Start: 12-06-2022 End: 12-06-[address] Ivette Grimes Work Phone: [facility] Start: 12-06-2022 End: 12-06-[address] Ivette Grimes Work Phone: [facility] Start: 12-04-2022 Telephone encounter Ivette Grimes MD Work Phone: [facility] Comment on above: Hank requesting records Start: 12-03-2022 End: 12-03-2022 Emergency department patient [facility] Start: 12-03-2022 Telephone encounter Ivette Grimes MD Work Phone: [facility] Comment on above: Patient Update Start: 11-30-2022 End: 11-30-2022 ambulatory Ivette Grimes MD Work Phone: [facility] Comment on above: Headache, unspecifie d headache type (Primary Dx); Concussion with loss of consciousness, initial encounter Start: 11-30-2022 End: 11-30-2022 Telemedicine consultation with patient Ivette Grimes MD Work Phone: [facility] Start: 11-29-2022 Telephone encounter Elle Sanchez MD Work Phone: [facility] [place] Comment on above: Patient Question ( john paul appointment on 12/05/22) Start: 11-27-2022 End: 11-27-2022 Emergency department patient [facility] Dr[facility] Ivette [facility]imes [facility] Start: 11-27-2022 End: 11-27-[address] Ivette Grimes Work Phone: [facility] Comment on above: Worst headache of li fe (Primary Dx); Concussion with loss of consciousness, initial encounter Start: 11-27-[address] Gerald Grimes Work Phone: [facility] Start: 11-24-2022 End: 11-24-2022 Emergency department patient [facility] Dr. Ivette [facility]imes [facility] Start: 11-23-2022 Refill Ivette Grimes MD Work Phone: [facility] Comment on above: Refill Request Start: 11-22-[address] Gerald Grimes Work Phone: [facility] Start: 11-22-2022 End: 11-22-[address] Ivette Grimes Work Phone: [facility] Start: 11-20-2022 Orders Only Elle Sanchez MD Work Phone: [facility] [place] Comment on above: Chronic left shoulde r pain (Primary Dx); Adhesive capsulitis of left shoulder Start: 11-15-2022 Refill Ivette Grimes MD Work Phone: [facility] Comment on above: Refill Request Start: 11-08-2022 End: 11-08-2022 ambulatory ADELINA MASON Facility:[facility] Start: 11-08-2022 Telephone encounter Elle Sanchez MD Work Phone: [facility] [facility] Comment on above: Injections Start: 11-08-2022 End: 11-08-2022 Patient encounter procedure Adelina Mason TRANSMITTER SUPERVISOR.ELECTROTYPER HELPER Work Phone: [facility] Comment on above: Chronic left shoulde r pain (Primary Dx); Adhesive capsulitis of left shoulder; Neuropathic pain; Myofascial pain Start: 11-08-2022 End: 11-08-[address] Ivette Grimes Work Phone: [facility] Start: 10-23-2022 End: 10-23-[address] Ivette Grimes Work Phone: [facility] Start: 10-16-2022 End: 10-16-[address] Ivette Grimes Work Phone: [facility] Start: 10-16-[address] Gerald Grimes Work Phone: [facility]Physical Therapy Start: 10-15-2022 End: 10-15-[address] Ivette Grimes Work Phone: [facility] Work Phone: Start: 10-15-2022 End: 10-15-[address] Ivette Grimes Work Phone: [facility]Sleep Lab Start: 10-12-2022 End: 10-12-2022 [facility] Grace Coronel TRANSMITTER SUPERVISOR.ELECTROTYPER HELPER Work Phone: Psychiatry Comment on above: VAHE (generalized anx iety disorder) (Primary Dx); Major depressive disorder, recurrent episode, moderate (HCC) Start: 10-10-2022 ambulatory [facility] Neurology Comment on above: Botox Start: 10-10-2022 E-mail encounter escobar cedeno caregiver [facility] Provider [facility] Start: 10-06-2022 Refill Tara Kong katharine TRANSMITTER SUPERVISOR.ELECTROTYPER HELPER Work Phone: Neurology Comment on above: Refill Request Start: 10-05-2022 Refill Ivette Grimes MD Work Phone: Family [facility] Comment on above: Refill Request Start: 10-02-2022 Telephone encounter Adelina lazaro TRANSMITTER SUPERVISOR.ELECTROTYPER HELPER Work Phone: [facility] [place] Comment on above: Appointment; Patient Question Start: 10-02-2022 End: 10-02-[address] Ivette Grimes Work Phone: [facility] Start: 09-19-2022 Refill Ivette Grimes MD Work Phone: [facility] Comment on above: Refill Request Start: 09-13-2022 End: 09-13-[address] Ivette Grimes Work Phone: [facility] Start: 09-13-[address] Gerald Grimes Work Phone: [facility]Physical Therapy Start: 09-12-2022 ambulatory Ivette Grimes MD Work Phone: [facility] Start: 09-12-2022 Chart abstracting Rivka SwansonW Work Phone: Adult Psychology Comment on above: Behavioral Health So cial Work Start: 09-12-2022 Follow-up encounter Ivette Grimes MD Work Phone: Family [facility] Comment on above: Follow up (couldn t reply to other message) Start: 09-06-2022 End: 09-06-2022 Refill Ivette Grimes MD Work Phone: Family [facility] Comment on above: Refill Request Start: 09-06-2022 End: 09-06-[address] Ivette Grimes Work Phone: [facility]-Laboratory, OP Pavilion Start: 09-04-2022 ambulatory Ivette Grimes MD Work Phone: [facility] Comment on above: Migraine/botox quest ion Start: 09-04-2022 End: 09-04-2022 Patient encounter procedure Ivette Grimes MD Work Phone: [facility] Comment on above: Lightheadedness (Carolyn alyssa Dx); Essential (primary) hypertension; Prolonged Q-T interval on ECG; Type 2 diabetes mellitus with microalbuminuria, with long-term current use of insulin (HCC); Fatty liver; LETITIA (obstructive sleep apnea) Start: 09-04-[address] Gerald Grimes Work Phone: [facility]Physical Therapy Start: 09-03-2022 End: 09-03-2022 ambulatory Ivette Grimes MD Work Phone: [facility] Comment on above: Malaise (Primary Dx) Start: 09-03-2022 End: 09-03-2022 Telemedicine consultation with patient Ivette Grimes MD Work Phone: [facility] Start: 09-03-2022 E-mail encounter fro m caregiver [facility] Provider [facility] Start: 09-03-2022 Patient encounter procedure [facility] Neurology Comment on above: Botox Appointment Start: 08-30-2022 Non-patient / Non-visit Dr. Regina Grimes Work Phone: [facility] Start: 08-30-2022 End: 08-30-[address] Ivette Grimes Work Phone: [facility] Work Phone: Start: 08-30-2022 End: 08-30-[address] Ivette Grimes Work Phone: [facility]-Cardiovascu lar Services Start: 08-29-2022 End: 08-29-[address] Ivette Grimes Work Phone: [facility] Work Phone: Start: 08-29-2022 End: 08-29-[address] Ivette Grimes Work Phone: [facility]Laboratory, [facility] Start: 08-27-2022 ambulatory Ivette Grimes MD Work Phone: [facility] Comment on above: Quick question Start: 08-21-2022 Telephone encounter Karen renee TRANSMITTER SUPERVISOR.ELECTROTYPER HELPER Work Phone: Neurology Comment on above: Medication Authoriza tion (Botox Approved) Start: 08-21-2022 End: 08-21-[address] Ivette Grimes Work Phone: [facility] Start: 08-16-2022 End: 08-16-[address] Ivette Grimes Work Phone: [facility] Start: 08-16-[address] Gerald Grimes Work Phone: [facility]Physical Therapy Start: 08-10-2022 End: 08-10-[address] Ivette Grimes Work Phone: [facility] Work Phone: Start: 08-10-2022 End: 08-10-[address] Ivette Grimes Work Phone: [facility]-Outpatient Breast Imaging Start: 08-08-2022 Chart abstracting Ivette Martínez MD Work Phone: [facility] Start: 08-08-2022 Telephone encounter Adelina lazaro TRANSMITTER SUPERVISOR.ELECTROTYPER HELPER Work Phone: [facility] [place] Comment on above: Patient Update Start: 08-08-2022 End: 08-08-[address] Ivette Grimes Work Phone: [facility] Work Phone: Start: 08-08-2022 End: 08-08-[address] Ivette Grimes Work Phone: [facility]Labor[facility] Start: 08-07-[address] Gerald Grimes Work Phone: [facility]Physical Therapy Start: 08-07-2022 End: 08-07-[address] Ivette Grimes Work Phone: [facility]-Pulmonary Medicine [facility] Start: 08-06-2022 ambulatory Ivette Grimes MD Work Phone: [facility] Comment on above: Labs Start: 08-02-2022 ambulatory Karen lópez TRANSMITTER SUPERVISOR.ELECTROTYPER HELPER Work Phone: Neurology Comment on above: Migraines Start: 08-02-2022 End: 08-02-[address] 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 Ivette Grimes Work Phone: [facility] Start: 07-24-2022 End: 07-24-[address] Ivette Grimes Work Phone: [facility] Work Phone: Start: 07-24-2022 End: 07-24-[address] [facility] Start: 07-23-2022 Refill Ivette Grimes MD Work Phone: [facility] Comment on above: Refill Request Start: 07-19-2022 Telephone encounter Elle Sanchez MD Work Phone: [facility] Comment on above: Patient Update (Inje ction questions ) Start: 07-19-2022 End: 07-19-2022 Patient encounter procedure Karen Bansal TRANSMITTER SUPERVISOR.ELECTROTYPER HELPER Work Phone: Neurology Comment on above: Intractable chronic migraine without aura and without status migrainosus (Primary Dx); Mixed migraine and muscle contraction headache Start: 07-19-2022 End: 07-19-2022 ambulatory ADELINA [facility] Facility:[facility] Start: 07-10-2022 Refill Krystle Barahona on PA-C Work Phone: [facility] Comment on above: Refill Request Start: 07-10-2022 End: 07-10-[address] Ivette Grimes Work Phone: [facility] Start: 07-03-2022 ambulatory Tara alcantar TRANSMITTER SUPERVISOR.ELECTROTYPER HELPER Work Phone: Neurology Comment on above: Medication Question Start: 06-28-2022 End: 06-28-[address] Ivette Grimes Work Phone: [facility] Start: 06-22-2022 Refill Ivette Grimes MD Work Phone: [facility] Comment on above: Refill Request Start: 06-07-2022 End: 06-07-2022 Patient encounter procedure Tara Gillette APRN.ELECTROTYPER HELPER Work Phone: Neurology Comment on above: Intractable migraine without aura and without status migrainosus (Primary Dx); Medication overuse headache; LETITIA (obstructive sleep apnea); Class 3 severe obesity with body mass index (BMI) of 45.0 to 49.9 in adult, unspecified obesity type, unspecified whether serious comorbidity present (HCC) Start: 06-07-2022 Telephone encounter Tara Herndon APRN.ELECTROTYPER HELPER Work Phone: Neurology Comment on above: Orders Start: 06-05-2022 ambulatory Ivette guzman MD Work Phone: Neurology Comment on above: Labs Start: 06-05-2022 E-mail encounter fro m caregiver Ivette Grimes MD Work Phone: [facility] Start: 06-05-[address] Luz Grimes Work Phone: [facility] Start: 06-04-2022 End: 06-04-[address] Ivette Grimes Work Phone: [facility] Start: 05-29-2022 Telephone encounter Tara Herndon APRN.ELECTROTYPER HELPER Work Phone: Neurology Comment on above: Appointment Start: 05-29-2022 End: 05-29-[address] Ivette Grimes Work Phone: [facility] Start: 05-24-2022 End: 05-24-2022 ambulatory ADELINA MASON Facility:[facility] Start: 05-24-2022 End: 05-24-2022 Patient encounter procedure Adelina Mason APRN.ELECTROTYPER HELPER Work Phone: [facility] Comment on above: Chronic left shoulde r pain (Primary Dx); Adhesive capsulitis of left shoulder; Primary osteoarthritis of left shoulder; Myofascial pain Start: 05-14-2022 End: 05-14-[address] Ivette Grimes Work Phone: [facility] Start: 05-11-2022 Telephone encounter Elle Sanchez MD Work Phone: [facility] [place] Comment on above: Procedure Follow Up Start: 05-10-2022 End: 05-10-2022 ambulatory ELLE SANCHEZ Facility:[facility] Start: 05-10-2022 End: 05-10-2022 ambulatory Elle Sanchez MD Work Phone: [facility] [place] Comment on above: Procedure Start: 05-10-2022 End: 05-10-2022 Patient encounter procedure Elle Sanchez MD Work Phone: [facility] Start: 05-08-2022 ambulatory Ivette Grimes MD Work Phone: [facility] Start: 05-08-2022 Follow-up encounter Ivette Grimes MD Work Phone: Family [facility] [place] Comment on above: Follow up from last appointment Start: 05-04-2022 End: 05-04-[address] 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 Ivette Grimes Work Phone: [facility] Start: 04-19-2022 ambulatory Ivette Grimes MD Work Phone: [facility] Comment on above: Lyrica Start: 04-17-2022 End: 04-17-[address] Ivette Grimes Work Phone: [facility] Start: 04-16-2022 Refill Ivette Grimes MD Work Phone: [facility] Comment on above: Refill Request [employer] Start: 04-09-2022 End: 04-09-2022 Patient encounter procedure Ivette Mejia MD Work Phone: Neurology Comment on above: Intractable migraine without aura and without status migrainosus (Primary Dx); Medication overuse headache; LETITIA (obstructive sleep apnea); Class 3 severe obesity with body mass index (BMI) of 45.0 to 49.9 in adult, unspecified obesity type, unspecified whether serious comorbidity present (HCC) Start: 04-05-2022 Refill Ivette Grimes MD Work Phone: [facility] Comment on above: Refill Request Start: 04-03-2022 End: 04-03-[address] Ivette Grimes Work Phone: [facility] Start: 03-30-2022 Refill Ivette Grimes MD Work Phone: [facility] Comment on above: Refill Request Start: 03-29-2022 Telephone encounter Elle Sanchez MD Work Phone: [facility] Comment on above: Injections Start: 03-29-2022 End: 03-29-2022 ambulatory ELLE SANCHEZ Facility:[facility] Start: 03-29-2022 End: 03-29-2022 Patient encounter procedure Elle Sanchez MD Work Phone: [facility] Comment on above: Myofascial pain (Carolyn alyssa Dx); Chronic left shoulder pain; Neuropathic pain; Adhesive capsulitis of left shoulder; Primary osteoarthritis of left shoulder Start: 03-16-2022 Refill Ivette Grimes MD Work Phone: [facility] Comment on above: Refill Request Start: 03-03-2022 Refill Krystle kessler PA-C Work Phone: [facility] [place] Comment on above: Refill Request Start: 02-28-2022 End: 02-28-2022 Patient encounter procedure Ivette Grimes MD Work Phone: [facility] [place] Comment on above: Upper back pain (Carolyn alyssa Dx); Acute midline low back pain without sciatica; Type 2 diabetes mellitus with microalbuminuria, with long-term current use of insulin (HCC); LETITIA (obstructive sleep apnea); Lumbar disc disorder; Elevated BP without diagnosis of hypertension Start: 02-27-2022 ambulatory Ivette Grimes MD Work Phone: [facility] [place] Comment on above: ER Start: 02-23-2022 Refill Ivette Grimes MD Work Phone: [facility] [place] Comment on above: Refill Request Start: 02-19-2022 E-mail encounter fro m caregiver Ivette Mejia Jr., MD Work Phone: [facility] Start: 02-19-2022 Patient encounter procedure Ivette Mejia MD Work Phone: Neurology Comment on above: Request an Appointme nt Start: 02-08-2022 Chart abstracting Ivette Martínez MD Work Phone: [facility] [place] Start: 02-07-2022 ambulatory Ivette Grimes MD Work Phone: [facility] [place] Comment on above: Lab work Start: 02-07-2022 E-mail encounter fro m caregiver Ivette Grimes MD Work Phone: [facility] Start: 02-07-2022 Telephone encounter Ivette Grimes MD Work Phone: [facility] [place] Comment on above: Results Start: 02-07-2022 End: 02-07-[address] Ivette Grimes Work Phone: [facility]-Laboratory, Future Start: 02-06-[address] Gerald Grimes Work Phone: [facility]Physical Therapy Start: 02-06-2022 End: 02-06-[address] Ivette Grimes Work Phone: [facility] Start: 02-05-2022 ambulatory Ivette Grimes MD Work Phone: [facility] [place] Comment on above: Lab work Start: 01-29-2022 Telephone encounter Elle Sanchez MD Work Phone: [facility] [place] Comment on above: New Patient Start: 01-23-2022 End: 01-23-[address] Ivette Grimes Work Phone: [facility] Start: 01-09-2022 End: 01-09-[address] Ivette Grimes Work Phone: [facility] Start: 01-09-2022 Non-patient / Non-visit Dr. Regina Grimes Work Phone: [facility] Start: 01-09-2022 End: 01-09-[address] Ivette Grimes Work Phone: [facility] Start: 01-01-2022 End: 01-01-[address] Ivette Grimes Work Phone: [facility] Start: 12-26-2021 End: 12-26-[address] Ivette Grimes Work Phone: [facility] Start: 11-29-2021 End: 11-29-[address] Ivette Grimes Work Phone: [facility] Start: 11-23-2021 End: 11-23-[address] Ivette Grimes Work Phone: [facility] Start: 11-21-2021 End: 11-21-[address] Ivette Grimes Work Phone: [facility] Start: 11-09-2021 End: 11-09-[address] Ivette Grimes Work Phone: [facility] Start: 10-24-2021 End: 10-24-[address] Ivette Grimes Work Phone: [facility] Start: 12-06-2012 End: 02-22-2014 Patient encounter status Stephanie Paz TRANSMITTER SUPERVISOR.ELECTROTYPER HELPER Work Phone: [facility] Start: 01-23-2010 End: 02-22-2014 Patient encounter status Stephanie Jackson TRANSMITTER SUPERVISOR.ELECTROTYPER HELPER Work Phone: [facility] Procedures Date Procedure Procedure Detail Performing Clinician Start: 03-11-2025 Plain X-ray of shoulder Dr. Ivette Grimes MD Work Phone: Start: 01-28-2025 Hemoglobin A1c/Hemoglobin.total in Blood [facility] Start: 01-22-2025 Adult depression scr eening assessment Ivette Grimes MD Work Phone: Start: 12-11-2024 Measurement of renal function Dr. Ivette Grimes MD Work Phone: Comment on above: GFR Calc Start: 12-11-2024 X-ray of chest, PA a nd lateral views Dr. Ivette Grimes MD Work Phone: Start: 11-11-2024 SARS-CoV-2, Influenz a & RSV (PCR) Dr. Ivette Grimes MD Work Phone: Start: 11-11-[address] Gerald Grimes MD Work Phone: Start: 10-16-2024 X-ray of lumbar spin e, two or three views Dr. Ivette Grimes MD Work Phone: Start: 10-16-2024 CT cervical spine wi thout contrast Dr. Ivette Grimes MD Work Phone: Start: 10-16-2024 CT of head without contrast Dr. Ivette Grimes MD Work Phone: Start: 10-16-2024 Plain x-ray of pelvi s and lower extremity Dr. Ivette Grimes MD Work Phone: Start: 07-04-2024 Hemoglobin A1c/Hemoglobin.total in Blood [facility] Provider Start: 07-04-2024 Lipid panel [facility] Provid er Start: 07-04-2024 MICROALBUMIN/CREATIN INE UR W RATIO (EXTERNAL) [facility] Provider Start: 02-04-2024 SARS-CoV-2, Influenz a & RSV (PCR) Dr. Ivette Grimes Work Phone: Start: 02-04-2024 Plain chest X-ray Dr. Liam Grimes Work Phone: Start: 12-09-2023 Adult depression scr eening assessment Ivette Grimes MD Work Phone: Start: 08-05-[address] Ivette Grimes Work Phone: Start: 08-05-2023 MRI of brain without contrast Self Referred Start: 08-05-2023 CT angiography of he ad and neck Dr. Ivette Grimes Work Phone: Start: 08-05-2023 CT of head without contrast Dr. Ivette Grimes Work Phone: Start: 08-05-2023 Plain chest X-ray Dr. Liam Grimes Work Phone: Start: 05-28-2023 Radex foot complete minimum 3 views Nicole Anton PA-C Work Phone: Start: 02-28-2023 Mri brain brain stem w/o contrast material Ivtete Mejia MD Work Phone: Start: 02-08-2023 Ultrasonography of t hyroid and parathyroid Dr. Ivette Grimes Work Phone: Start: 11-27-2022 CT of head without contrast Dr. Ivette Grimes Work Phone: Start: 11-24-2022 Plain x-ray of wrist Dr Stephany Grimes Work Phone: Start: 11-24-2022 CT cervical spine wi thout contrast Dr. Ivette Grimes Work Phone: Start: 11-24-2022 CT of head without contrast Dr. Ivette Grimes Work Phone: Start: 08-10-2022 End: 08-10-[address] Ivette Grimes Work Phone: Start: 08-08-2022 Hemoglobin A1c/Hemoglobin.total in Blood [facility] Provider Start: 05-10-2022 Gluc bld gluc mntr d ev cleared fda spec home use Elle Sanchez MD Work Phone: Start: 05-04-2022 X-ray of chest posteroanterior view Dr. Ivette Grimes Work Phone: Start: 03-29-2022 Adult depression scr eening assessment Elle Sanchez MD Work Phone: Start: 02-07-2022 Hemoglobin A1c/Hemoglobin.total in Blood [facility] Provider Start: 02-07-2022 Lipid panel [facility]cf Provid er Start: 02-07-2022 MICROALBUMIN/CREATIN INE UR W RATIO (EXTERNAL) [facility] Provider Start: 02-07-2022 Thyrotropin [Units/v olume] in Serum or Plasma [facility] Provider Start: 11-29-2021 MRI of lumbar spine Dr. Ivette Grimes Work Phone: Start: 10-06-2021 Adult depression scr eening assessment Elle Sanchez MD Work Phone: Start: 09-05-2017 End: 09-05-2017 Appl modality 1/> areas elec stimj unattended Bibiana B Dossi DC Work Phone: Start: 09-05-2017 End: 09-05-2017 Appl modality 1/> areas traction mechanical Bibiana B Dossi DC Work Phone: Start: 09-05-2017 End: 09-05-2017 Chiropractic manipulative tx spinal 1-2 regions Bibiana B Dossi DC Work Phone: Start: 09-03-2017 End: 09-05-2017 Appl modality 1/> areas elec stimj unattended Bibiana B Dossi DC Work Phone: Start: 09-03-2017 End: 09-05-2017 Appl modality 1/> areas traction mechanical Bibiana B Dossi DC Work Phone: Start: 09-03-2017 End: 09-05-2017 Chiropractic manipulative tx spinal 1-2 regions Bibiana B Dossi DC Work Phone: Start: 08-22-2017 End: 08-22-2017 Appl modality 1/> areas elec stimj unattended Bibiana B Dossi DC Work Phone: Start: 08-22-2017 End: 08-22-2017 Appl modality 1/> areas traction mechanical Bibiana B Dossi DC Work Phone: Start: 08-22-2017 End: 08-22-2017 Chiropractic manipulative tx spinal 1-2 regions Bibiana B Dossi DC Work Phone: Start: 08-21-2017 End: 08-22-2017 Appl modality 1/> areas elec stimj unattended Bibiana B Dossi DC Work Phone: Start: 08-21-2017 End: 08-22-2017 Appl modality 1/> areas traction mechanical Bibiana B Dossi DC Work Phone: Start: 08-21-2017 End: 08-22-2017 Chiropractic manipulative tx spinal 1-2 regions Bibiana B Dossi DC Work Phone: Start: 08-20-2017 End: 08-20-2017 Appl modality 1/> areas elec stimj unattended Bibiana B Dossi DC Work Phone: Start: 08-20-2017 End: 08-20-2017 Appl modality 1/> areas traction mechanical Bibiana B Dossi DC Work Phone: Start: 08-20-2017 End: 08-20-2017 Chiropractic manipulative tx spinal 1-2 regions Bibiana B Dossi DC Work Phone: Start: 08-15-2017 End: 08-15-2017 Appl modality 1/> areas elec stimj unattended Bibiana B Dossi DC Work Phone: Start: 08-15-2017 End: 08-15-2017 Appl modality 1/> areas traction mechanical Bibiana B Dossi DC Work Phone: Start: 08-15-2017 End: 08-15-2017 Chiropractic manipulative tx spinal 1-2 regions Bibiana B Dossi DC Work Phone: Start: 08-13-2017 End: 08-13-2017 Appl modality 1/> areas elec stimj unattended Bibiana B Dossi DC Work Phone: Start: 08-13-2017 End: 08-13-2017 Appl modality 1/> areas traction mechanical Bibiana B Dossi DC Work Phone: Start: 08-13-2017 End: 08-13-2017 Chiropractic manipulative tx spinal 1-2 regions Bibiana B Dossi DC Work Phone: Start: 08-12-2017 End: 08-13-2017 Appl modality 1/> areas elec stimj unattended Bibiana B Dossi DC Work Phone: Start: 08-12-2017 End: 08-13-2017 Appl modality 1/> areas traction mechanical Bibiana B Dossi DC Work Phone: Start: 08-12-2017 End: 08-13-2017 Chiropractic manipulative tx spinal 1-2 regions Bibiana B Dossi DC Work Phone: Start: 08-08-2017 End: 08-08-2017 Appl modality 1/> areas elec stimj unattended Bibiana B Dossi DC Work Phone: Start: 08-08-2017 End: 08-08-2017 Appl modality 1/> areas traction mechanical Bibiana B Dossi DC Work Phone: Start: 08-08-2017 End: 08-08-2017 Chiropractic manipulative tx spinal 1-2 regions Bibiana B Dossi DC Work Phone: Start: 08-06-2017 End: 08-06-2017 Appl modality 1/> areas elec stimj unattended Bbiiana B Dossi DC Work Phone: Start: 08-06-2017 End: 08-06-2017 Appl modality 1/> areas traction mechanical Bibiana B Dossi DC Work Phone: Start: 08-06-2017 End: 08-06-2017 Chiropractic manipulative tx spinal 1-2 regions Bibiana B Ori BEEBE Work Phone: Plan of Treatment Date Care Activity Detail Author Start: 03-02-2026 Annual PCP Team Chronic Disease Visit Annual PCP Team Chronic Disease Visit [facility] Start: 02-04-2026 Glaucoma screening Dilated Retinal Exam [facility] Start: 01-22-2026 Annual PCP Team Chronic Disease Visit Annual PCP Team Chronic Disease Visit [facility] Start: 01-22-2026 BP Controlled (<130/80) BP Controlled (<130/80) [facility] Start: 01-22-2026 Depression Screening Depression Screening [facility] Start: 12-11-2025 Annual PCP Team Chronic Disease Visit Annual PCP Team Chronic Disease Visit [facility] Start: 10-19-2025 Annual PCP Team Chronic Disease Visit Annual PCP Team Chronic Disease Visit [facility] Start: 09-24-2025 Annual PCP Team Chronic Disease Visit Annual PCP Team Chronic Disease Visit [facility] Start: 08-05-2025 Annual PCP Team Chronic Disease Visit Annual PCP Team Chronic Disease Visit [facility] Start: 08-05-2025 BP Controlled (<130/80) BP Controlled (<130/80) [facility] Start: 08-05-2025 Covid-19 Vaccine ( season) Covid-19 Vaccine () [facility] Comment on above: Postponed from 07/05/2024 (Declined at t his time) Start: 08-05-2025 Diabetic foot examination Diabetic Foot Exam [facility] Start: 08-05-2025 Pneumococcal vaccination Pneumococcal Vaccine (2 of 2 - PCV) [facility] Comment on above: Postponed from 07/28/2020 (Declined at t his time) Start: 08-05-2025 Urine microalbumin profile DTaP,Tdap,Td Vaccine (2 - Td or Tdap) [facility] Comment on above: Postponed from 06/01/2023 (Declined at t his time) Start: 08-03-2025 End: 08-03-2025 Patient encounter procedure 08/03/2025 2:20 PM EDT Office Visit OB/Gynecology [place] [address] Galina Camacho MD [address] [place] [address] annual with pap OB/Gynecology Comment on above: annual with pap Start: 07-31-2025 Hemoglobin A1c measurement HbA1C [facility] Start: 07-04-2025 Hepatitis B screening Urine Albumin:Creatinine Ratio [facility] Start: 07-04-2025 Hepatitis B surface antibody level LDL Cholesterol [facility] Start: 07-03-2025 Annual PCP Team Chronic Disease Visit Annual PCP Team Chronic Disease Visit [facility] Start: 06-03-2025 Annual PCP Team Chronic Disease Visit Annual PCP Team Chronic Disease Visit [facility] Start: 05-03-2025 Influenza vaccination Influenza Vaccine (#1) [facility] Comment on above: Postponed from 07/05/2024 (Declined at t his time) Start: 04-21-2025 End: 04-21-2025 Patient encounter procedure 04/21/2025 2:00 PM EDT Office Visit Neurology [address] [place] [address] Kristen Enriquez, THOM.ELECTROTYPER HELPER [address] [place] [address] botox Neurology Comment on above: botox Start: 03-09-2025 End: 03-09-2025 Patient encounter procedure 03/09/2025 7:25 AM EDT [facility] Neurology [address] [facility] [address] [place] [id number] Amanda Arteaga, PA-C [address] [facility] [address] [place] [address] consult botox injection for headache Neurology Comment on above: consult botox injection for headache Start: 01-22-2025 End: 04-23-2025 Basic metabolic 2000 panel - Serum or Plasma BASIC METABOLIC PANEL Lab Routine Essential (primary) hypertension Expected: 01/22/2025, Expires: 04/23/2025 [facility] Comment on above: Expected: 01/22/2025, Expires: Start: 01-22-2025 End: 04-23-2025 Hemoglobin A1c in Blood HEMOGLOBIN A1C Lab Routine Type 2 diabetes mellitus with microalbuminuria, with long-term current use of insulin (HCC) Expected: 01/22/2025, Expires: 04/23/2025 [facility] Work Phone: Comment on above: Expected: 01/22/2025, Expires: Start: 01-01-2025 Hemoglobin A1c measurement HbA1C [facility] Start: 12-26-2024 BP Controlled (<130/80) BP Controlled (<130/80) [facility] Start: 12-25-2024 End: 12-25-2024 Patient encounter procedure 12/25/2024 10:15 AM EST Office Visit OB/Gynecology [address] [place] [place] [id number] Karol Mancera APRN.ELECTROTYPER HELPER [address] [place] [id number] annual OB/Gynecology Comment on above: annual Start: 12-17-2024 End: 12-17-2024 ambulatory 12/17/2024 9:40 AM EST [facility] [address] [place] [address] Ivette Grimes MD [address] [place] [address] [facility] Comment on above: General Start: 12-11-2024 End: 03-12-2025 Comprehensive metabolic 2000 panel - Serum or Plasma COMPREHENSIVE METABOLIC PANEL Lab Routine Hypokalemia Expected: 12/11/2024, Expires: 03/12/2025 [facility] Comment on above: Expected: 12/11/2024, Expires: Start: 12-09-2024 End: 12-09-2024 Patient encounter procedure 12/09/2024 2:20 PM EST Office Visit OB/Gynecology [address] [place] [id number] Galina Camacho MD [address] [place] [address] Check up OB/Gynecology Comment on above: Check up Start: 12-09-2024 Annual PCP Team Chronic Disease Visit Annual PCP Team Chronic Disease Visit [facility] Start: 12-09-2024 BP Controlled (<130/80) BP Controlled (<130/80) [facility] Start: 12-09-2024 Covid-19 Vaccine () Covid-19 Vaccine () [facility] Comment on above: Postponed from 07/05/2023 (Declined at t his time) Start: 12-09-2024 Depression Screening Depression Screening [facility] Start: 11-11-2024 [facility] Start: 11-06-2024 Annual PCP Team Chronic Disease Visit Annual PCP Team Chronic Disease Visit [facility] Start: 10-20-2024 End: 10-20-2024 Patient encounter procedure 10/20/2024 2:20 PM EST Office Visit OB/Gynecology [address] [place] [address] Galina Camacho MD [address] [place] [address] Check up OB/Gynecology Comment on above: Check up Start: 09-13-2024 BP Controlled (<130/80) BP Controlled (<130/80) [facility] Start: 09-12-2024 Glaucoma screening Dilated Retinal Exam [facility] Start: 09-10-2024 End: 09-10-2024 Patient encounter procedure Neurology Comment on above: botox Start: 09-03-2024 End: 09-03-2024 Patient encounter procedure 09/03/2024 1:00 PM EDT Office Visit Neurology [address] [place] [address] Fatuma Beckford PA-C [address] [place], [place] [id number] botox Neurology Comment on above: botox Start: 08-05-2024 Depression Screening Depression Screening [facility] Comment on above: Postponed from 2000 (Declined at t his time) Start: 08-05-2024 End: 08-05-2024 Patient encounter procedure 08/05/2024 8:00 AM EDT Office Visit [facility] [place] [address] [place] [address] Ivette Grimes MD [address] [place] [id number] [facility] [place] Comment on above: [facility] Start: 07-15-2024 Annual PCP Team Chronic Disease Visit Annual PCP Team Chronic Disease Visit [facility] Start: 07-05-2024 Covid-19 Vaccine () Covid-19 Vaccine () [facility] Start: 07-05-2024 Covid-19 Vaccine () Covid-19 Vaccine () [facility] Start: 07-05-2024 Influenza [facility] Start: 07-03-2024 End: 10-02-2024 CBC W Auto Differential panel - Blood COMPLETE BLOOD COUNT AND DIFFERENTIAL Lab Routine Type 2 diabetes mellitus with microalbuminuria, with long-term current use of insulin (HCC) Expected: 07/03/2024, Expires: 10/02/2024 [facility] Work Phone: Comment on above: Expected: 07/03/2024, Expires: Start: 07-03-2024 End: 10-02-2024 Comprehensive metabolic 2000 panel - Serum or Plasma COMPREHENSIVE METABOLIC PANEL Lab Routine Type 2 diabetes mellitus with microalbuminuria, with long-term current use of insulin (HCC) Expected: 07/03/2024, Expires: 10/02/2024 [facility] Comment on above: Expected: 07/03/2024, Expires: Start: 07-03-2024 End: 10-02-2024 Hemoglobin A1c in Blood HEMOGLOBIN A1C Lab Routine Type 2 diabetes mellitus with microalbuminuria, with long-term current use of insulin (HCC) Expected: 07/03/2024, Expires: 10/02/2024 [facility] Comment on above: Expected: 07/03/2024, Expires: Start: 07-03-2024 End: 10-02-2024 Lipid 1996 panel - Serum or Plasma LIPID PANEL BASIC Lab Routine Type 2 diabetes mellitus with microalbuminuria, with long-term current use of insulin (HCC) Expected: 07/03/2024, Expires: 10/02/2024 [facility] Comment on above: Expected: 07/03/2024, Expires: 4 Start: 07-03-2024 End: 10-02-2024 Microalbumin/Creatinine [Mass Ratio] in Urine ALBUMIN/CREATININE RATIO, URINE Lab Routine Type 2 diabetes mellitus with microalbuminuria, with long-term current use of insulin (HCC) Expected: 07/03/2024, Expires: 10/02/2024 [facility] Comment on above: Expected: 07/03/2024, Expires: Start: 06-06-2024 ANNUAL PCP TEAM CHRONIC DISEASE VISIT ANNUAL PCP TEAM CHRONIC DISEASE VISIT [facility] Start: 06-06-2024 COVID-19 VACCINE (4 - Moderna series) COVID-19 VACCINE (4 - Moderna series) [facility] Comment on above: Postponed from 12/13/2021 (Declined at t his time) Start: 06-06-2024 Diabetic foot examination Diabetic Foot Exam [facility] Start: 06-06-2024 Urine microalbumin profile [facility] Comment on above: Postponed from 06/01/2023 (Declined at t his time) Start: 06-05-2024 Hemoglobin A1c measurement HbA1C [facility] Start: 05-17-2024 BP CONTROLLED (<130/80) BP CONTROLLED (<130/80) [facility] Start: 03-26-2024 End: 03-26-2024 Patient encounter procedure 03/26/2024 10:30 AM EDT Office Visit Neurology [address] [place] [address] Fatuma Beckford PA-C [address] [facility] [place] [address] botox 4 of 4 Neurology Comment on above: botox 4 of 4 Start: 03-05-2024 BP CONTROLLED (<130/80) BP CONTROLLED (<130/80) [facility] Start: 03-05-2024 PNEUMOCOCCAL (2 - PCV) PNEUMOCOCCAL (2 - PCV) [facility] Comment on above: Postponed from 07/28/2020 (Declined at t his time) Start: 03-05-2024 Pneumococcal vaccination [facility] Comment on above: Postponed from 07/28/2020 (Declined at t his time) Start: 03-04-2024 Hepatitis B screening URINE ALBUMIN:CREATININE RATIO [facility] Start: 02-29-2024 ANNUAL PCP TEAM CHRONIC DISEASE VISIT ANNUAL PCP TEAM CHRONIC DISEASE VISIT [facility] Start: 02-04-2024 Bacteria identified in Urine by Culture [facility] Start: 02-04-2024 [facility] Start: 02-04-2024 [facility] Start: 02-01-2024 ANNUAL PCP TEAM CHRONIC DISEASE VISIT ANNUAL PCP TEAM CHRONIC DISEASE VISIT [facility] Start: 01-18-2024 ANNUAL PCP TEAM CHRONIC DISEASE VISIT ANNUAL PCP TEAM CHRONIC DISEASE VISIT [facility] Start: 01-05-2024 ANNUAL PCP TEAM CHRONIC DISEASE VISIT ANNUAL PCP TEAM CHRONIC DISEASE VISIT [facility] Start: 12-26-2023 ANNUAL PCP TEAM CHRONIC DISEASE VISIT ANNUAL PCP TEAM CHRONIC DISEASE VISIT [facility] Start: 12-18-2023 HPV TESTING HPV TESTING [facility] Start: 12-18-2023 PAP TESTING PAP TESTING [facility] Start: 12-18-2023 Screening for malignant neoplasm of cervix [facility] Start: 12-14-2023 ANNUAL PCP TEAM CHRONIC DISEASE VISIT ANNUAL PCP TEAM CHRONIC DISEASE VISIT [facility] Start: 12-07-2023 ANNUAL PCP TEAM CHRONIC DISEASE VISIT ANNUAL PCP TEAM CHRONIC DISEASE VISIT [facility] Start: 12-07-2023 End: 02-06-2024 CBC W Auto Differential panel - Blood CBC + DIFF Lab Routine Type 2 diabetes mellitus with microalbuminuria, with long-term current use of insulin (HCC) Expected: 12/07/2023, Expires: 02/06/2024 [facility] Work Phone: Comment on above: Expected: 12/07/2023, Expires: Start: 12-07-2023 End: 02-06-2024 Comprehensive metabolic 2000 panel - Serum or Plasma COMP METABOLIC PANEL Lab Routine Type 2 diabetes mellitus with microalbuminuria, with long-term current use of insulin (HCC) Expected: 12/07/2023, Expires: 02/06/2024 [facility] Work Phone: Comment on above: Expected: 12/07/2023, Expires: Start: 12-07-2023 End: 02-06-2024 Hemoglobin A1c in Blood HGB A1C Lab Routine Type 2 diabetes mellitus with microalbuminuria, with long-term current use of insulin (HCC) Expected: 12/07/2023, Expires: 02/06/2024 [facility] Work Phone: Comment on above: Expected: 12/07/2023, Expires: Start: 12-07-2023 End: 02-06-2024 Lipid 1996 panel - Serum or Plasma LIPID PANEL BASIC Lab Routine Type 2 diabetes mellitus with microalbuminuria, with long-term current use of insulin ([facility]) Expected: 12/07/2023, Expires: 02/06/2024 [facility] Work Phone: Comment on above: Expected: 12/07/2023, Expires: Start: 11-30-2023 ANNUAL PCP TEAM CHRONIC DISEASE VISIT ANNUAL PCP TEAM CHRONIC DISEASE VISIT [facility] Start: 11-27-2023 ANNUAL PCP TEAM CHRONIC DISEASE VISIT ANNUAL PCP TEAM CHRONIC DISEASE VISIT [facility] Start: 11-04-2023 Behavioral Health Screening Behavioral Health Screening [facility] Start: 11-04-2023 Depression Assessment Depression Assessment [facility] Start: 10-31-2023 BP CONTROLLED (<130/80) BP CONTROLLED (<130/80) [facility] Start: 10-27-2023 [facility] Start: 09-04-2023 ANNUAL PCP TEAM CHRONIC DISEASE VISIT ANNUAL PCP TEAM CHRONIC DISEASE VISIT [facility] Start: 09-04-2023 Hemoglobin A1c measurement HbA1C [facility] Start: 09-04-2023 Hemoglobin A1c/Hemoglobin.total in Blood HBA1C [facility] Start: 09-03-2023 ANNUAL PCP TEAM CHRONIC DISEASE VISIT ANNUAL PCP TEAM CHRONIC DISEASE VISIT [facility] Start: 08-10-2023 Mammography [facility] Start: 08-10-2023 Screening for malignant neoplasm of breast Mammogram Screening [facility] Start: 08-08-2023 Hepatitis B surface antibody level LDL CHOLESTEROL [facility] Start: 08-07-2023 Patient discharge [facility] Start: 08-06-2023 Telepractice consultation [facility] Start: 08-05-2023 End: 08-05-2023 [facility] Start: 08-05-2023 Following clinical pathway protocol [facility] Start: 08-05-2023 Assessment of risk of venous thromboembolism [facility] Start: 08-05-2023 Cardiac monitoring [facility] Start: 08-05-2023 Catheterization of vein [facility] Start: 08-05-2023 Continuous pulse oximetry [facility] Start: 08-05-2023 Elevation of head of bed [facility] Start: 08-05-2023 Exercises [facility] Start: 08-05-2023 Implementation of planned interventions [facility] Start: 08-05-2023 Insertion of catheter into peripheral vein [facility] Start: 08-05-2023 Measuring intake and output [facility] Start: 08-05-2023 Notification of physician [facility] Start: 08-05-2023 Oxygen therapy [facility] Start: 08-05-2023 Providing care according to standard [facility] Start: 08-05-2023 Referral to occupational therapist [facility] Start: 08-05-2023 Referral to service [facility] Start: 08-05-2023 Tobacco use cessation education [facility] Start: 08-05-2023 Vital signs measurements [facility] Start: 08-05-2023 Verification routine [facility] Start: 08-05-2023 Admission procedure [facility] Start: 08-05-2023 Oxygen therapy [facility] Start: 08-05-2023 [facility] Start: 08-05-2023 Inhalation therapy procedure [facility] Start: 08-05-2023 Patient referral to dietitian [facility] Start: 08-02-2023 3 comp foot exam completed DIABETIC FOOT EXAM [facility] Start: 08-02-2023 ANNUAL PCP TEAM CHRONIC DISEASE VISIT ANNUAL PCP TEAM CHRONIC DISEASE VISIT [facility] Start: 08-02-2023 Diabetic foot examination Diabetic Foot Exam [facility] Start: 07-05-2023 Covid-19 Vaccine () Covid-19 Vaccine () [facility] Start: 07-05-2023 Influenza vaccination [facility] Start: 06-07-2023 End: 08-07-2023 Cobalamin (Vitamin B12) [Mass/volume] in Serum or Plasma VITAMIN B12 BLOOD Lab Routine Memory loss Attention and concentration deficit Expected: 06/07/2023, Expires: 08/07/2023 [facility] Work Phone: Comment on above: Expected: 06/07/2023, Expires: Start: 06-07-2023 End: 08-07-2023 Thyrotropin [Units/volume] in Serum or Plasma TSH BLD Lab Routine Memory loss Attention and concentration deficit Expected: 06/07/2023, Expires: 08/07/2023 [facility] Work Phone: Comment on above: Expected: 06/07/2023, Expires: Start: 06-07-2023 End: 08-07-2023 Thyroxine (T4) free [Mass/volume] in Serum or Plasma T4 FREE/FREE THYROX Lab Routine Memory loss Attention and concentration deficit Expected: 06/07/2023, Expires: 08/07/2023 [facility] Work Phone: Comment on above: Expected: 06/07/2023, Expires: Start: 06-01-2023 Urine microalbumin profile [facility] Start: 05-01-2023 ANNUAL PCP TEAM CHRONIC DISEASE VISIT ANNUAL PCP TEAM CHRONIC DISEASE VISIT [facility] Start: 04-02-2023 [facility] Start: 03-29-2023 Adult depression screening assessment DEPRESSION SCREENING [facility] Start: 02-28-2023 End: 04-30-2023 ALBUMIN/CREAT RATIO RND UR ALBUMIN/CREAT RATIO RND UR Lab Routine Type 2 diabetes mellitus with microalbuminuria, with long-term current use of insulin (HCC) Expected: 02/28/2023, Expires: 04/30/2023 [facility] Work Phone: Comment on above: Expected: 02/28/2023, Expires: 3 Start: 02-28-2023 ANNUAL PCP TEAM CHRONIC DISEASE VISIT ANNUAL PCP TEAM CHRONIC DISEASE VISIT [facility] Start: 02-28-2023 End: 04-30-2023 Basic metabolic 2000 panel - Serum or Plasma BASIC METABOLIC PNL Lab Routine Myalgia Expected: 02/28/2023, Expires: 04/30/2023 [facility] Work Phone: Comment on above: Expected: 02/28/2023, Expires: 3 Start: 02-28-2023 End: 04-30-2023 CBC W Auto Differential panel - Blood CBC + DIFF Lab Routine Myalgia Expected: 02/28/2023, Expires: 04/30/2023 [facility] Work Phone: Comment on above: Expected: 02/28/2023, Expires: Start: 02-28-2023 End: 04-30-2023 Hemoglobin A1c in Blood HGB A1C Lab Routine Type 2 diabetes mellitus with microalbuminuria, with long-term current use of insulin (HCC) Expected: 02/28/2023, Expires: 04/30/2023 [facility] Work Phone: Comment on above: Expected: 02/28/2023, Expires: 3 Start: 02-28-2023 End: 04-30-2023 Iron and Iron binding capacity panel - Serum or Plasma IRON + TIBC Lab Routine Myalgia Expected: 02/28/2023, Expires: 04/30/2023 [facility] Work Phone: Comment on above: Expected: 02/28/2023, Expires: 3 Start: 02-28-2023 End: 04-30-2023 Magnesium [Mass/volume] in Serum or Plasma MAGNESIUM BLD Lab Routine Myalgia Expected: 02/28/2023, Expires: 04/30/2023 [facility] Work Phone: Comment on above: Expected: 02/28/2023, Expires: 3 Start: 02-07-2023 Hepatitis B screening URINE ALBUMIN:CREATININE RATIO [facility] Start: 02-07-2023 Hepatitis B surface antibody level LDL CHOLESTEROL [facility] Start: 02-06-2023 Hemoglobin A1c/Hemoglobin.total in Blood HBA1C [facility] Start: 01-25-2023 ANNUAL PCP TEAM CHRONIC DISEASE VISIT ANNUAL PCP TEAM CHRONIC DISEASE VISIT [facility] Start: 11-04-2022 DEPRESSION ASSESSMENT DEPRESSION ASSESSMENT [facility] Start: 10-16-2022 End: 12-16-2022 Thyrotropin [Units/volume] in Serum or Plasma TSH BLD Lab Routine Lightheadedness Expected: 10/16/2022, Expires: 12/16/2022 [facility] Work Phone: Comment on above: Expected: 10/16/2022, Expires: 3 Start: 10-06-2022 Adult depression screening assessment DEPRESSION SCREENING [facility] Start: 10-05-2022 Glaucoma screening Dilated Retinal Exam [facility] Start: 10-05-2022 Hepatitis C antibody, confirmatory test DILATED RETINAL EXAM [facility] Start: 09-04-2022 End: 11-04-2022 Basic metabolic 2000 panel - Serum or Plasma BASIC METABOLIC PNL Lab Routine Lightheadedness Expected: 09/04/2022, Expires: 11/04/2022 [facility] Work Phone: Comment on above: Expected: 09/04/2022, Expires: 3 Start: 09-04-2022 End: 11-04-2022 CBC W Auto Differential panel - Blood CBC + DIFF Lab Routine Lightheadedness Expected: 09/04/2022, Expires: 11/04/2022 [facility] Work Phone: Comment on above: Expected: 09/04/2022, Expires: 3 Start: 08-16-2022 Patient referral [facility] Work Phone: Start: 08-09-2022 Hemoglobin A1c/Hemoglobin.total in Blood HBA1C [facility] Start: 08-02-2022 End: 10-02-2022 Hemoglobin A1c in Blood HGB A1C Lab Routine Type 2 diabetes mellitus with microalbuminuria, with long-term current use of insulin (HCC) Expected: 08/02/2022, Expires: 10/02/2022 [facility] Work Phone: Comment on above: Expected: 08/02/2022, Expires: 2 Start: 08-02-2022 End: 10-02-2022 Lipid 1996 panel - Serum or Plasma LIPID PANEL BASIC Lab Routine Type 2 diabetes mellitus with microalbuminuria, with long-term current use of insulin (HCC) Expected: 08/02/2022, Expires: 10/02/2022 [facility] Work Phone: Comment on above: Expected: 08/02/2022, Expires: 2 Start: 08-02-2022 End: 10-02-2022 Thyrotropin [Units/volume] in Serum or Plasma TSH BLD Lab Routine Fatigue, unspecified type Expected: 08/02/2022, Expires: 10/02/2022 [facility] Work Phone: Comment on above: Expected: 08/02/2022, Expires: 2 Start: 07-20-2022 3 comp foot exam completed DIABETIC FOOT EXAM [facility] Start: 07-05-2022 Influenza vaccination INFLUENZA (#1) [facility] Start: 06-28-2022 Hepatitis B surface antibody level LDL CHOLESTEROL [facility] [facility] Start: 2022 Mammography MAMMOGRAM [facility] Start: 06-05-2022 End: 08-05-2022 Bacteria identified in Urine by Culture URINE CULTURE Microbiology Routine Proteinuria, unspecified type Leukocytosis, unspecified type Expected: 06/05/2022, Expires: 08/05/2022 [facility] Work Phone: Comment on above: Expected: 06/05/2022, Expires: 2 Start: 06-05-2022 End: 08-05-2022 Urinalysis complete panel - Urine URINALYSIS, WITH MICROSCOPIC Lab Routine Proteinuria, unspecified type Leukocytosis, unspecified type Expected: 06/05/2022, Expires: 08/05/2022 [facility] Work Phone: Comment on above: Expected: 06/05/2022, Expires: 2 Start: 04-09-2022 End: 06-09-2022 CBC W Auto Differential panel - Blood CBC + DIFF Lab Routine LETITIA (obstructive sleep apnea) Class 3 severe obesity with body mass index (BMI) of 45.0 to 49.9 in adult, unspecified obesity type, unspecified whether serious comorbidity present (HCC) Intractable migraine without aura and without status migrainosus Medication overuse headache Expected: 04/09/2022, Expires: 06/09/2022 [facility] Work Phone: Comment on above: Expected: 04/09/2022, Expires: 2 Start: 04-09-2022 End: 06-09-2022 Comprehensive metabolic 2000 panel - Serum or Plasma COMP METABOLIC PANEL Lab Routine LETITIA (obstructive sleep apnea) Class 3 severe obesity with body mass index (BMI) of 45.0 to 49.9 in adult, unspecified obesity type, unspecified whether serious comorbidity present (HCC) Intractable migraine without aura and without status migrainosus Medication overuse headache Expected: 04/09/2022, Expires: 06/09/2022 [facility] Work Phone: Comment on above: Expected: 04/09/2022, Expires: 2 Start: 12-26-2021 Patient referral [facility] Work Phone: Start: 12-13-2021 COVID-19 VACCINE (4 - Booster for Moderna series) COVID-19 VACCINE (4 - Booster for Moderna series) [facility] Start: 12-13-2021 COVID-19 VACCINE (4 - Moderna series) COVID-19 VACCINE (4 - Moderna series) [facility] Start: 11-04-2021 DEPRESSION ASSESSMENT DEPRESSION ASSESSMENT [facility] Start: 08-11-2021 Hepatitis B screening URINE ALBUMIN:CREATININE RATIO [facility] Start: 07-15-2021 Hemoglobin A1c/Hemoglobin.total in Blood HBA1C [facility] Start: 07-28-2020 PNEUMOCOCCAL (2 - PCV) PNEUMOCOCCAL (2 - PCV) [facility] Start: 07-28-2020 Pneumococcal vaccination Pneumococcal Vaccine (2 of 2 - PCV) [facility] Start: 09-24-2017 End: 09-24-2017 Appointment Appointment [facility] Work Phone: Start: 09-23-2017 End: 09-23-2017 Appointment Appointment [facility] Work Phone: Start: 09-17-2017 End: 09-17-2017 Appointment Appointment [facility] Work Phone: Start: 09-16-2017 End: 09-16-2017 Appointment Appointment [facility] Work Phone: Start: 09-12-2017 End: 09-12-2017 Appointment Appointment [facility] Work Phone: Start: 09-10-2017 End: 09-10-2017 Appointment Appointment [facility] Work Phone: Start: 09-09-2017 End: 09-09-2017 Appointment Appointment [facility] Work Phone: Start: 09-05-2017 End: 09-05-2017 Appointment Appointment [facility] Work Phone: Start: 09-05-2017 End: 09-05-2017 Follow up Appt 2x/week Follow up Appt 2x/week [facility] Work Phone: Start: 09-03-2017 End: 09-05-2017 Follow up Appt 2x/week Follow up Appt 2x/week [facility] Work Phone: Start: 08-22-2017 End: 08-22-2017 Follow up Appt 2x/week Follow up Appt 2x/week [facility] Work Phone: Start: 08-21-2017 End: 08-22-2017 Follow up Appt 2x/week Follow up Appt 2x/week [facility] Work Phone: Start: 08-20-2017 End: 08-20-2017 Follow up Appt 2x/week Follow up Appt 2x/week [facility] Work Phone: Start: 08-15-2017 End: 08-15-2017 Follow up Appt 2x/week Follow up Appt 2x/week [facility] Work Phone: Start: 08-13-2017 End: 08-13-2017 Follow up Appt 3x/week Follow up Appt 3x/week [facility] Work Phone: Start: 08-12-2017 End: 08-13-2017 Follow up Appt 3x/week Follow up Appt 3x/week [facility] Work Phone: Start: 08-08-2017 End: 08-08-2017 Follow up Appt 3x/week Follow up Appt 3x/week [facility] Work Phone: Start: 08-06-2017 End: 08-06-2017 Follow up Appt 3x/week Follow up Appt 3x/week [facility] Work Phone: Start: 07-02-2017 End: 07-02-2017 Mri spinal canal lumbar w/o contrast material MRI Lumbar Spine [facility] Work Phone: Start: 06-06-2017 End: 06-06-2017 Mri spinal canal lumbar w/o contrast material MRI Lumbar Spine [facility] Work Phone: Start: 05-10-2017 End: 05-10-2017 Radex spine lumbosacral minimum 4 views X-Ray, Spine, Lumbosacral 2-3 views [facility] Work Phone: Start: 05-09-2017 End: 05-09-2017 Physical Therapy General Physical Therapy General Rehab [facility], [address] [place] [address], [id number] [facility] Work Phone: Start: 2001 HEPATITIS B (1 of 3 - Risk 3-dose series) HEPATITIS B (1 of 3 - Risk 3-dose series) [facility] Start: 2000 BP CONTROLLED (<130/80) BP CONTROLLED (<130/80) [facility] in Start: 2000 Depression Screening Depression Screening [facility] Start: 1982 HEPATITIS B (1 of 3 - 3-dose series) HEPATITIS B (1 of 3 - 3-dose series) [facility] Chiropractic manipulation [facility] End: 03-29-2024 Ct soft tissue neck w/contrast material CT NECK SOFT TISSUE W IVCON Radiology Routine Soft tissue mass 1 Occurrences starting 02/28/2023 until 03/29/2024 [facility] Work Phone: Comment on above: 1 Occurrences starting 02/28/2023 until 03/29/2024 End: 12-17-2025 DBT Breast - bilateral screening FLASH SCREENING W JAQUELIN Radiology Routine Encounter for screening mammogram for breast cancer 1 Occurrences starting 11/17/2024 until 12/17/2025 [facility] Work Phone: Comment on above: 1 Occurrences starting 11/17/2024 until 12/17/2025 End: 09-04-2023 ECG COMPLETE ECG COMPLETE ECG Routine Prolonged Q-T interval on ECG 1 Occurrences starting 09/04/2022 until 09/04/2023 [facility] Work Phone: Comment on above: 1 Occurrences starting 09/04/2022 until 09/04/2023 End: 03-05-2024 EPIL EEG ROUTINE EPIL EEG ROUTINE NEUROLOGY Routine Altered awareness, transient 1 Occurrences starting 03/05/2023 until 03/05/2024 [facility] Work Phone: Comment on above: 1 Occurrences starting 03/05/2023 until 03/05/2024 Hemoglobin A1c/Hemoglobin.total in Blood [facility] Injection aa&/strd suprascapular nerve INJECT NERV BLCK,SUPRASCAP N. Procedures Routine Adhesive capsulitis of left shoulder Primary osteoarthritis of left shoulder Ordered: 05/10/2022 [facility] Work Phone: Comment on above: Ordered: 05/10/2022 Magnesium [Mass/volu me] in Serum or Plasma [facility] Work Phone: End: 07-05-2024 FLASH SCREENING FLASH SCREENING Radiology Routine Encounter for screening mammogram for malignant neoplasm of breast 1 Occurrences starting 06/06/2023 until 07/05/2024 [facility] Work Phone: Comment on above: 1 Occurrences starting 06/06/2023 until 07/05/2024 End: 01-07-2025 FLASH SCREENING W JAQUELIN FLASH SCREENING W JAQUELIN Radiology Routine Encounter for screening mammogram for malignant neoplasm of breast 1 Occurrences starting 12/09/2023 until 01/07/2025 [facility] Work Phone: Comment on above: 1 Occurrences starting 12/09/2023 until 01/07/2025 MR Lower Extremity Joint [facility] End: 01-06-2024 Mri brain brain stem w/o contrast material MRI BRAIN WO IVCON Radiology Routine Post concussion syndrome Intractable acute post-traumatic headache Dizziness Cervicalgia 1 Occurrences starting 12/07/2022 until 01/06/2024 [facility] Work Phone: Comment on above: 1 Occurrences starting 12/07/2022 until 01/06/2024 End: 01-06-2024 Mri spinal canal cervical w/o contrast matrl MRI CERVICAL SPINE WO IVCON Radiology Routine Post concussion syndrome Intractable acute post-traumatic headache Dizziness Cervicalgia 1 Occurrences starting 12/07/2022 until 01/06/2024 [facility] Work Phone: Comment on above: 1 Occurrences starting 12/07/2022 until 01/06/2024 Patient Education [facility] Work Phone: Patient referral [facility] Work Phone: End: 03-01-2024 US HEAD/NECK SOFT TISSUE OTHER US HEAD/NECK SOFT TISSUE OTHER Radiology Routine Soft tissue mass 1 Occurrences starting 01/31/2023 until 03/01/2024 [facility] Work Phone: Comment on above: 1 Occurrences starting 01/31/2023 until 03/01/2024 US Heart [facility] Work Phone: End: 08-20-2025 XR Chest PA and Lateral XR CHEST 2V FRONTAL/LAT Radiology Routine Cough, unspecified type 1 Occurrences starting 07/21/2024 until 08/20/2025 [facility] Work Phone: Comment on above: 1 Occurrences starting 07/21/2024 until 08/20/2025 End: 01-10-2026 XR Chest PA and Lateral XR CHEST 2V FRONTAL/LAT Radiology STAT Sinobronchitis 1 Occurrences starting 12/11/2024 until 01/10/2026 [facility] Work Phone: Comment on above: 1 Occurrences starting 12/11/2024 until 01/10/2026 End: 05-31-2023 XR RIBS/CHEST 3V AP RIB/OBLS/CXR LEFT XR RIBS/CHEST 3V AP RIB/OBLS/CXR LEFT Radiology Routine Rib pain 1 Occurrences starting 05/01/2022 until 05/31/2023 [facility] Work Phone: Comment on above: 1 Occurrences starting 05/01/2022 until 05/31/2023 [facility] Immunizations Immunization Date Immunization Notes Care Provider Fa cili 09-08-2024 influenza, seasonal, injectable, preservative free Dr. Ivette Grimes MD Work Phone: [facility] 09-23-2023 influenza virus vacc ine, unspecified formulation Ivette Grimes MD Work Phone: [facility] 09-19-2023 influenza, injectabl e, quadrivalent, preservative free Self Referred [facility] 08-06-2022 influenza, injectabl e, quadrivalent, preservative free Dr. Ivette Grimes Work Phone: [facility] 08-06-2022 influenza, seasonal, injectable Ivette Grimes MD Work Phone: [facility] 08-06-2022 influenza virus vacc ine, unspecified formulation Ivette Grimes MD Work Phone: [facility] 10-18-2021 Covid (Moderna) Dr. Ivette Grimes Work Phone: [facility] 08-01-2021 influenza virus vacc ine, unspecified formulation Elle Sanchez MD Work Phone: [facility] 08-01-2021 influenza, injectabl e, quadrivalent, preservative free Dr. Ivette Grimes Work Phone: [facility] 08-01-2021 influenza, seasonal, injectable Dr. Ivette Grimes Work Phone: [facility] 08-01-2021 influenza, seasonal, injectable, preservative free Ivette Grimes MD Work Phone: [facility] 11-29-2020 COVID-19 vaccine, fu ll dose (MODERNA) Elle Sanchez MD Work Phone: [facility] 11-01-2020 Covid (Moderna) Dr. Ivette Grimes Work Phone: [facility] 10-31-2020 COVID-19 vaccine, fu ll dose (MODERNA) Elle Sanchez MD Work Phone: [facility] 08-02-2020 influenza, injectabl e, quadrivalent, preservative free Dr. Ivette Grimes Work Phone: [facility] 08-02-2020 influenza, seasonal, injectable Dr. Ivette Grimes Work Phone: [facility] 08-02-2020 influenza, seasonal, injectable, preservative free Ivette Grimes MD Work Phone: [facility] 08-01-2020 influenza virus vacc ine, unspecified formulation Elle Sanchez MD Work Phone: [facility] 07-30-2019 influenza, injectabl e, quadrivalent, contains preservative Ivette Grimes MD Work Phone: [facility] 07-30-2019 influenza, injectabl e, quadrivalent, preservative free Dr. Ivette Grimes Work Phone: [facility] 07-30-2019 influenza, seasonal, injectable Dr. Ivette Grimes Work Phone: [facility] 07-28-2019 pneumococcal polysaccharide vaccine, 23 valent Elle Sanchez MD Work Phone: [facility] 08-01-2018 influenza, injectabl e, quadrivalent, preservative free Dr. Ivette Grimes Work Phone: [facility] 08-01-2018 influenza, seasonal, injectable Dr. Ivette Grimes Work Phone: [facility] 08-07-2017 influenza, seasonal, injectable Elle Sanchez MD Work Phone: [facility] 07-31-2017 influenza, injectabl e, quadrivalent, preservative free Dr. Ivette Grimes Work Phone: [facility] 07-31-2017 influenza, seasonal, injectable Dr. Ivette Grimes Work Phone: [facility] 08-02-2016 influenza, injectabl e, quadrivalent, preservative free Dr. Ivette Grimes Work Phone: [facility] 08-02-2016 influenza, seasonal, injectable Dr. Ivette Grimes Work Phone: [facility] 07-09-2016 influenza, injectabl e, quadrivalent, contains preservative Elle Sanchez MD Work Phone: [facility] 03-05-2016 hepatitis B vaccine, pediatric or pediatric/adolescent dosage Elle Sanchez MD Work Phone: [facility] 03-05-2016 hepatitis B vaccine, unspecified formulation Elle Sanchez MD Work Phone: [facility] 07-25-2015 influenza, injectabl e, quadrivalent, contains preservative Ivette Grimes MD Work Phone: [facility] 07-25-2015 influenza, injectabl e, quadrivalent, preservative free Dr. Ivette Grimes Work Phone: [facility] 07-25-2015 influenza, seasonal, injectable Dr. Ivette Grimes Work Phone: [facility] 07-25-2015 varicella virus vaccine Cathy Sanchez MD Work Phone: [facility] 06-06-2015 hepatitis B vaccine, pediatric or pediatric/adolescent dosage Elle Sanchez MD Work Phone: [facility] 05-05-2015 hepatitis B vaccine, pediatric or pediatric/adolescent dosage Elle Sanchez MD Work Phone: [facility] 06-01-2013 tetanus toxoid, redu jamila diphtheria toxoid, and acellular pertussis vaccine, adsorbed Elle Sanchez MD Work Phone: [facility] 02-22-2009 human papilloma viru s vaccine, quadrivalent Elle Sanchez MD Work Phone: [facility] Work Phone: 09-27-2008 human papilloma viru s vaccine, quadrivalent Elle Sanchez MD Work Phone: [facility] Work Phone: 07-20-2008 human papilloma viru s vaccine, quadrivalent Elle Sanchez MD Work Phone: [facility] Work Phone: Payers Date Payer Category Payer Unknown [id number] 2024 Self-pay [id number] [phone] [id number] 2022 Government (not [facility] care or Medicaid) [facility] [id number] 2022 Private Health Insurance [id number] 2022 Unknown [id number] 2020 Unknown [id number] 2019 Unknown [id number]. [id number] 2015 Unknown [id number] Unknown [id number] Unknown [id number] 2.16.840.1.444798.3.579.2. 462 Unknown [id number] 2.16840.1.235034.3.579.2. 462 Unknown [id number] 2.16.840.1.420425.3.579.2. 462 Unknown [id number] 2.16.840.1.656514.3.579.2. 462 Unknown [id number] 2.16.840.1.449441.3.579.2. 462 Unknown [id number] 2.16.840.1.929331.3.579.2. 462 Unknown [id number] 2.16.840.1.131694.3.579.2. 462 Unknown [id number] 2.16.840.1.169378.3.579.2. 462 Unknown [id number] 2.840.1.112388.3.579.2. 462 Unknown [id number] 2.840.1.831599.3.579.2. 462 Unknown [id number] 2.840.1.053528.3.579.2. 462 Unknown [id number] 2.840.1.845976.3.579.2. 462 Unknown [id number] 2.840.1.310838.3.579.2. 462 Unknown [id number] 2.840.1.663243.3.579.2. 462 Unknown [id number] 2.840.1.655688.3.579.2. 462 Unknown [id number] 2.840.1.134237.3.579.2. 462 Unknown [id number] 2.840.1.544446.3.579.2. 462 Unknown [id number] 2.840.1.728778.3.579.2. 462 Unknown [id number] 2.840.1.796168.3.579.2. 462 Unknown [id number] 2.840.1.920181.3.579.2. 462 Unknown [id number] 2.840.1.124187.3.579.2. 462 Unknown [id number] 2.840.1.586631.3.579.2. 462 Unknown [id number] 2.840.1.145275.3.579.2. 462 Unknown [id number] 2.840.1.893138.3.579.2. 462 Unknown [id number] 2.16.840.1.888318.3.579.2. 462 Social History Date Type Detail Facility Start: 03-14-2011 End: 07-19-2022 Tobacco smoking status NHIS Never smoked tobacco [facility] Start: 01-25-2022 End: 01-22-2025 Alcohol intake Current non-drinker of alcohol (finding) [facility] Start: 09-13-2020 End: 11-01-2022 History SDOH Alcohol Frequency 1 [facility] Start: 03-09-2020 History SDOH Social Connections Phone 5 [facility] Start: 03-09-2020 End: 11-01-2022 History SDOH Social Connections Get Together 2 [facility] Start: 03-09-2020 End: 11-01-2022 History SDOH Social Connections Worship 3 [facility] Start: 03-09-2020 End: 11-01-2022 History SDOH Social Connections Living 7 [facility] Start: 09-13-2020 End: 11-01-2022 History SDOH Financial 4 [facility] Start: 08-15-2020 Education 16 [facility] Start: 1980 Sex Assigned At Female C [facility] Start: 01-19-2022 End: 01-22-2023 Exposure to SARS-CoV-2 (event) Not sure [facility] Start: 02-06-2022 End: 02-04-2024 Tobacco smoking status NHIS Unknown if ever smoked [facility] Start: 05-15-2020 None [facility] Start: 05-15-2020 Alone [facility] Start: 05-05-2020 Non-smoker [facility] Start: 03-14-2011 End: 07-19-2022 Tobacco use and exposure Smokeless tobacco non-user [facility] Work Phone: Start: 11-01-2022 History SDOH Alcohol Std Drinks 0 [facility] Start: 11-01-2022 End: 05-17-2023 History of Social function [facility] Start: 11-01-2022 End: 05-17-2023 Social connection and isolation panel [facility] Do you belong to any clubs or organizations such as yarsani groups, unions, fraternal or athletic groups, or school groups? No [facility] Are you now , , , , never or living with a partner? Never [facility] How often to you hav e a drink containing alcohol? Never [facility] How many standard drinks containing alcohol do you have on a typical day? Patient does not drink [facility] How hard is it for y ou to pay for the very basics like food, housing, medical care, and heating Not very hard [facility] Do you feel stress - tense, restless, nervous, or anxious, or unable to sleep at night because your mind is troubled all the time - these days [OSQ] Only a little [facility] (I/We) worried wheth er (my/our) food would run out before (I/we) got money to buy more. Never true [facility] Start: 05-27-2020 Gender identity Identifies as female gender (finding) [facility] Start: 05-27-2020 Sexual orientation Heterosexual (fin ding) [facility] Do you belong to any clubs or organizations such as yarsani groups, unions, [employer] or athletic groups, or school groups? Yes [facility] Start: 02-02-2025 Sex Female (finding) [facility] NEGATED: Highlighted row [facility] Medical Equipment Procedure Code Equipment Code Equipment Origin al Text Equipment Identifier Dates [id number], [id number] Start: 07-22-2018 Comment on above: Test blood sugar(s) 1 times daily. Dx: Type 2 DM - Controlled E11.9 Insulin: Yes Test blood sugar(s) 1 times daily. Dx: Type 2 DM - Controlled E11.9 Insulin: No STENT,URETERAL PIGTAIL [id number] FDA Start: 02-25-2019 Blood Sugar Diagnostic (Blood Glucose Test) strip Start: 04-26-2020 STENT,URETERAL PIGTAIL [id number] FDA Start: 02-25-2019 Blood Sugar Diagnostic (Blood Glucose Test) strip Start: 04-26-2020 STENT,URETERAL PIGTAIL [id number] FDA Start: 02-25-2019 Blood Sugar Diagnostic (Blood Glucose Test) strip Start: 04-26-2020 STENT,URETERAL PIGTAIL [id number] FDA Start: 02-25-2019 Blood Sugar Diagnostic (Blood Glucose Test) strip Start: 04-26-2020 STENT,URETERAL PIGTAIL [id number] FDA Start: 02-25-2019 Blood Sugar Diagnostic (Blood Glucose Test) strip Start: 04-26-2020 STENT,URETERAL PIGTAIL [id number] FDA Start: 02-25-2019 Blood Sugar Diagnostic (Blood Glucose Test) strip Start: 04-26-2020 STENT,URETERAL PIGTAIL [id number] FDA Start: 02-25-2019 Blood Sugar Diagnostic (Blood Glucose Test) strip Start: 04-26-2020 STENT,URETERAL PIGTAIL [id number] FDA Start: 02-25-2019 Blood Sugar Diagnostic (Blood Glucose Test) strip Start: 04-26-2020 STENT,URETERAL PIGTAIL [id number] FDA Start: 02-25-2019 Blood Sugar Diagnostic (Blood Glucose Test) strip Start: 04-26-2020 STENT,URETERAL PIGTAIL [id number] FDA Start: 02-25-2019 Blood Sugar Diagnostic (Blood Glucose Test) strip Start: 04-26-2020 STENT,URETERAL PIGTAIL [id number] FDA Start: 02-25-2019 Blood Sugar Diagnostic (Blood Glucose Test) strip Start: 04-26-2020 STENT,URETERAL PIGTAIL [id number] FDA Start: 02-25-2019 Blood Sugar Diagnostic (Blood Glucose Test) strip Start: 04-26-2020 STENT,URETERAL PIGTAIL [id number] FDA Start: 02-25-2019 Blood Sugar Diagnostic (Blood Glucose Test) strip Start: 04-26-2020 STENT,URETERAL PIGTAIL [id number] FDA Start: 02-25-2019 Blood Sugar Diagnostic (Blood Glucose Test) strip Start: 04-26-2020 STENT,URETERAL PIGTAIL [id number] FDA Start: 02-25-2019 Blood Sugar Diagnostic (Blood Glucose Test) strip Start: 04-26-2020 STENT,URETERAL PIGTAIL [id number] FDA Start: 02-25-2019 Blood Sugar Diagnostic (Blood Glucose Test) strip Start: 04-26-2020 STENT,URETERAL PIGTAIL [id number] FDA Start: 02-25-2019 Blood Sugar Diagnostic (Blood Glucose Test) strip Start: 04-26-2020 STENT,URETERAL PIGTAIL [id number] FDA Start: 02-25-2019 Blood Sugar Diagnostic (Blood Glucose Test) strip Start: 04-26-2020 STENT,URETERAL PIGTAIL [id number] FDA Start: 02-25-2019 Blood Sugar Diagnostic (Blood Glucose Test) strip Start: 04-26-2020 STENT,URETERAL PIGTAIL [id number] FDA Start: 02-25-2019 Blood Sugar Diagnostic (Blood Glucose Test) strip Start: 04-26-2020 STENT,URETERAL PIGTAIL [id number] FDA Start: 02-25-2019 Blood Sugar Diagnostic (Blood Glucose Test) strip Start: 04-26-2020 STENT,URETERAL PIGTAIL [id number] FDA Start: 02-25-2019 Blood Sugar Diagnostic (Blood Glucose Test) strip Start: 04-26-2020 STENT,URETERAL PIGTAIL [id number] FDA Start: 02-25-2019 Blood Sugar Diagnostic (Blood Glucose Test) strip Start: 04-26-2020 STENT,URETERAL PIGTAIL [id number] FDA Start: 02-25-2019 Blood Sugar Diagnostic (Blood Glucose Test) strip Start: 04-26-2020 STENT,URETERAL PIGTAIL [id number] FDA Start: 02-25-2019 Blood Sugar Diagnostic (Blood Glucose Test) strip Start: 04-26-2020 STENT,URETERAL PIGTAIL [id number] FDA Start: 02-25-2019 Blood Sugar Diagnostic (Blood Glucose Test) strip Start: 04-26-2020 Goals Date Patient Goal Desired Activity /State Functional Status Date Assessment Result Facility 12-11-2024 Total score [AUDIT-C] 0 12/11/19 10:02 AM EST User, Shankar [facility] 12-11-2024 Within the last year , have you been humiliated or emotionally abused in other ways by your partner or ex-partner? No 12/11/2024 10:02 AM EST User, Fernt [facility] 12-11-2024 Within the last year , have you been afraid of your partner or ex-partner? No 12/11/2024 10:02 AM EST User, Fernt [facility] 12-11-2024 Within the last year , have you been raped or forced to have any kind of sexual activity by your partner or ex-partner? No 12/11/2024 10:02 AM EST User, Fernt [facility] 12-11-2024 Within the last year , have you been kicked, hit, slapped, or otherwise physically hurt by your partner or ex-partner? No 12/11/2024 10:02 AM EST User, Fernt [facility] 12-11-2024 How often to you hav e a drink containing alcohol? Never 12/11/2024 10:02 AM EST UserShankar Never [facility] 12-11-2024 Functional status Patient does n ot drink 12/11/2024 10:02 AM EST UserShankar Patient does not drink [facility] 12-11-2024 How often do you hav e 6 or more drinks on 1 occasion? Never 12/11/2024 10:02 AM EST UserShankar Never [facility] 08-07-2023 Functional status Chair [facility] Work Phone: 10-22-2014 Are you deaf, or do you have serious difficulty hearing No 10/22/2014 10:49 AM Ashanti Mejia Ma No [facility] 10-22-2014 Are you blind, or do you have serious difficulty seeing, even when wearing glasses No 10/22/2014 10:49 AM Ashanti Mejia Ma No [facility] 10-22-2014 Do you have serious difficulty walking or climbing stairs No 10/22/2014 10:49 AM Ashanti Mejia Ma No [facility] 10-22-2014 Do you have difficul ty dressing or bathing No 10/22/2014 10:49 AM Ashanti Mejia Ma [facility] 10-22-2014 Because of a physica l, mental, or emotional condition, do you have difficulty doing errands alone such as visiting a physician's office or shopping No 10/22/2014 10:49 AM Ashanti Mejia Ma [facility] Mental Status Date Assessment Result Facility 11-11-2024 Cognitive function Voice/Name [facility] Work Phone: 02-04-2024 Cognitive function Level Of Cons ciousness Awake;Alert;Appropriate [facility] Work Phone: 08-07-2023 Cognitive function Voice/Name [facility] Work Phone: 08-05-2023 Cognitive function Level Of Cons ciousness Awake;Alert;Appropriate;Fol lows Commands [facility] Work Phone: 05-20-2023 Cognitive function Level Of Cons ciousness Awake;Alert;Appropriate [facility] Work Phone: 12-03-2022 Cognitive function Level Of Cons ciousness Awake;Alert;Appropriate;Fol lows Commands [facility] Work Phone: 11-27-2022 Cognitive function Level Of Cons ciousness Awake;Alert;Appropriate [facility] Work Phone: 10-22-2014 Because of a physica l, mental, or emotional condition, do you have serious difficulty concentrating, remembering, or making decisions No 10/22/2014 10:49 AM EST s Ashanti Ramirez [facility] Clinical Notes 12-06-2012 to 04-07-2025 Telephone Encounter - Ivette Grimes MD - 04/07/2025 3:34 PM EDTTelephone Encounter - Ivette Grimes MD - 04/07/2025 3:34 PM EDTAmanda Arteaga PA-C - 03/09/2025 7:25 AM EDT Note Date & Type Note Facility 04-07-2025 Telephone encounter Note Requests refill. [facility] 04-07-2025 Miscellaneous Notes Requests refill. documented in this encounter [facility] 04-01-2025 Telephone encounter Note Botox approved until 11/03/25. Patient and scheduling made aware. She is a patient of Fatuma's but due to her being out on maternity leave, patient will need scheduled with another FÉLIX. Saw Amanda on 03/09/25. Latonia Caraballo RN, BSN [facility] Work Phone: 04-01-2025 Miscellaneous Notes Botox approved until 11/03/25. Patient and scheduling made aware. She is a patient of Fatuma's but due to her being out on maternity leave, patient will need scheduled with another FÉLIX. Saw Amanda on 03/09/25. Latonia Caraballo RN, BSN documented in this encounter [facility] 03-19-2025 Telephone encounter Note Botox referral sent to pharmacy as patient would like to restart botox. Last botox 09/03/24. Latonia Caraballo RN, BSN [facility] Work Phone: 03-19-2025 Miscellaneous Notes Botox referral sent to pharmacy as patient would like to restart botox. Last botox 09/03/24. Latonia Caraballo RN BSN documented in this encounter [facility] 03-12-2025 Radiology Diagnostic study note [facility] [address] [place] [id number] Shoulder min 2 Views MR#: [id number] Acct: [id number] Name: TORI GRAY Rep #: [id number] : 1980 F 44 From: Kaushik Newsome MD PCP: Dr. Ivette Grimes MD Status: REG C EVER Study:Shoulder min 2 Views Date of Exam: 03/11/25 Exam# [id number] Ordering Dr: Brett Quiroga MD PROCEDURE: SHOULDER MIN 2 VIEWS 03/11/2025 REASON FOR EXAM: PAIN TECHNIQUE: Five views of the left shoulder COMPARISON: Left shoulder x-ray dated 05/03/2021. FINDINGS: The left shoulder is in anatomic alignment. There is no fracture or dislocationseen. No significant osteoarthritis is seen. RAD/Shoulder min 2 Views IMPRESSION: Unremarkable left shoulder series. Reading Location: [facility] CC: Dr. Brett Quiroga MD; Dr. Ivette Grimes MD ~ Brake Repairer Air: Signed [facility] 03-09-2025 History of Presen t illness Narrative Images from the original note were not included. [facility] New Patient Evaluation This visit was conducted via virtual platform. Patient was identified by name and and consented to the video evaluation and its limitations. Based on this evaluation it may be necessary for them to schedule a follow up evaluation with me or other neurologists for formal physical examination and if necessary, other studies I have communicated my name and active licensure. The patient's identity and physical location were verified at the time of this visit. Either the patient or their legal front office representative has been informed of the risks and benefits of -- and alternatives to -- treatment through a remote evaluation and consents to proceed with the evaluation remotely. Confirmed verbally that the patient currently located in the [facility].Yes Confirmed verbally that the patient consents to being seen virtually today.Yes Confirmed verbally that the patient consents to being seen by a physician pest controller assistant.Yes CHIEF COMPLAINT: Botox for migraines Tori Gray is a 44 year old female with history of T2DM, LETITIA with BiPAP use, Anxiety, Kidney stones. She is unaccompanied Consult requested for an opinion regarding chronic migraines. My final impression and recommendations will be communicated back to the requesting physician by way of the shared medical record or fax. HPI: As per chart review Seen by General Neurology: Seen by Fatuma Beckford:03/05/2023 HISTORY OF PRESENT ILLNESS: Tori Gray is a 42 year old female, There were no vitals taken for this visit. with a PMH significant for migraine, chronic shoulder pain, LETITIA, HTN, DM type 2. Gets botox for migraines with [facility]. Patient sustained fall and head injury 11/24/22 with LOC. Noted to have botox for migraines last month. Fall causing worsening headaches and dizziness. Headaches not typical for migraine, whole head and worsened with standing up. Hard to sleep, pain worse with standing and turning neck. Right face went numb after fall. Poor short term memory at last appointment. Increased gabapentin to 300mg tid, MRI of the brain and cervical spine were obtained and were normal. Patient also taking topiramate 100mg for preventative and zomig for abortive. Since last visit: botox doing well for migraines. Still taking topiramate 100mg, was on gabapentin for shoulder (doing PT for this). Decreased gabapentin back down due to swelling in legs. Since last appointment, patient notes overall improvement in her postconcussive symptoms. Symptoms notes improved concentration, sleep, headaches. Since last appointment she was given first trial of Botox for migraine, notes significant improvement in her headaches since her first round. Patient is still endorsing some instability issues. States that this can occur anytime of day, briefly, feels as if she is off balance for just a second. Unsure if this is improved at all since her concussion. Notes that she ended up falling the other day from her tanning bed due to this imbalance issue. No loss of consciousness, no injury, no lightheadedness, patient states she is unsure how she ended up on the ground. No tongue biting, no incontinence, no seizure-like activity to her knowledge. Notes other instances of imbalance occur anytime of day, notes that she will be standing at work and all of a sudden become slightly off balance as if 1 foot is heavier than another. Resolves within seconds, no other falls. This happens daily, multiple times a day. She is unsure if it favors 1 side. Patient denies any room spinning, no lightheadedness, no presyncope, no palpitations. Patient denies any weakness with this, but states that she recently went back to going to the gym, unsure if she is dehydrated as well. Notes that she does go to physical therapy once a week for her chronic shoulder pain, they have been addressing her neck and back pain as well secondary to the fall. Notes that overall she is at 80% of her baseline. Last Botox was 09/02/2024 Today:03/09/2025 History as per patient: -she is here for botox discussion, wants to initiate process again -she was going longer without the need for botox, botox is -she felt migraines come in again, she called Fatuma's office requesting Botox again, her last Botox was -everyday headaches are back, 4 weeks ago -frontal, right side more than left side -sharp pain, sometimes throbbing pain -pain scale 4-8/10 -pain lasts few hours -nausea, with photophobia+ -She has tried Lyrica, Excedrin, Tylenol, Naproxen, Amiovig, Topamax, Amitriptyline, Propranolol and Trokendi XL -she has failed various triptans -she remains on topiramate 100 mg bid, Nurtec is not helping as rescue at this time -Mobic 15 and Tylenol is not helping -tizanidine 4 mg at bedtime, helps some -Reports compliance with her BiPAP use Current medications: Albuterol, Gabapentin 300 mg bid, Topiramate 100 mg bid, Tizanidine 4 mg tid, Ozempic, Mobic 15 everyday 10 days, Lisinopril PAST HISTORY REVIEWED: PAST MEDICAL HISTORY Diagnosis Date Acute cholecystitis Cholecystitis Anxiety 06/07/2014 Chronic back pain Kidney stones LETITIA treated with BiPAP Type 2 diabetes mellitus (HCC) PAST SURGICAL HISTORY Procedure Laterality Date DELIVERY ONLY 2005 , low cervical INSERT INTRAUTERINE DEVICE 10/19/08 mirena LAPAROSCOPY SURG CHOLECYSTECTOMY 2006 Cholecystectomy, lap (Rowena Monet) PAST SURGICAL HISTORY OF 2019 stent into kidney REMOVE IUD 07/13/2010 Current Outpatient Medications Medication Sig divalproex ER (DEPAKOTE ER) 500 mg 24 hr tablet Depakote ER 500 mg one tablet twice a day for the first five days, then take take one tablet once a day for the next five days, then stop using depakote meloxicam (MOBIC) 15 mg tablet Take 1 tablet by mouth once daily for 10 days. tiZANidine (ZANAFLEX) 4 mg tablet Take 1 tablet by mouth every 8 hours as needed (muscle spasms). FLUoxetine (PROZAC) 20 mg capsule Take 1 capsule by mouth once daily. gabapentin (NEURONTIN) 300 mg capsule Take 1 capsule by mouth two times a day for 180 days. semaglutide (OZEMPIC) 1 mg/dose (4 mg/3 mL) pen Inject 1 mg subcutaneously one time a week. topiramate (TOPAMAX) 100 mg tablet Take 1 tablet by mouth two times a day. potassium chloride (KLOR-CON) 20 mEq packet Take 20 mEq by mouth as needed. albuterol HFA (VENTOLIN HFA) 90 mcg/actuation inhaler Inhale 2 Puffs as instructed every 4 hours as needed for wheezing/shortness of breath. ondansetron (ZOFRAN) 4 mg tablet Take 1 tablet by mouth every 8 hours as needed for nausea/vomiting. lisinopril (ZESTRIL) 10 mg tablet Take 1 tablet by mouth once daily. rimegepant (NURTEC ODT) 75 mg disintegrating tablet Take 1 tablet by mouth once daily as needed. naratriptan (AMERGE) 2.5 mg tablet Take 1 tablet (2.5 mg) by mouth as directed. at the onset of headache; if headache returns or does not fully resolve, the dose may be repeated after 4 hours; do not exceed five(5) mg in 24 hours. NO more than 10 doses a month. fexofenadine (ALMA ALLERGY) 180 mg tablet Take 1 tablet by mouth once daily. Ipratropium [place] (ATROVENT) 21 mcg (0.03 %) nasal spray Use 2 Sprays in the nose every 12 hours. omeprazole (PRILOSEC) 20 mg capsule Take 1 capsule by mouth daily before breakfast. 1/2 hr before meal. MAGNESIUM ORAL Take by mouth. meclizine (ANTIVERT) 25 mg tab Take 25 mg by mouth once daily. Takes two tabs in am BIPAP levonorgestrel (KYLEENA) 17.5 mcg/24 hrs (5 yrs) 19.5 mg IUD 1 Each by INTRAUTERINE route as directed. Herrick-3 Fatty Acids (FISH OIL) 500 mg cap Take 1 capsule by mouth once daily. blood sugar diagnostic (BLOOD GLUCOSE TEST) test strip Test blood sugar(s) 1 times daily. Dx: Type 2 DM - Controlled E11.9 Insulin: Yes Lancets lancets Test blood sugar(s) 1 times daily. Dx: Type 2 DM - Controlled E11.9 Insulin: No Geejezkf-Kn-Rja-Fe-FA tab Take 1 tablet by mouth once daily. No current facility-administered medications for this visit. SOCIAL HISTORY REVIEWED: Social History Tobacco Use Smoking status: Never Smokeless tobacco: Never Vaping Use Vaping status: Never Used Substance Use Topics Alcohol use: No Drug use: No EXAM: There were no vitals filed for this visit. Exam is observational at best. General Appearance: well appearing, in no acute distress Mental status evaluation during the interview and examination showed normal level of consciousness, orientation, language, memory, praxis, and higher intellectual function Affect: Normal Speech: normal Cranial Nerves: III, IV, -EOMI: full. VII-face is symmetric without evidence of weakness. VIII-hearing intact. Strength: GIULIANO REVIEW OF STUDIES: Blood studies 07/04/2024: CMP and CBC unremarkable MRI brain wo contrast 02/28/2023: unremarkable IMPRESSION/PLAN: (G43.711) Intractable chronic migraine without aura and with status migrainosus (primary encounter diagnosis) Tori Gray is a 44 year old female with history of T2DM, LETITIA with BiPAP use, Anxiety, Kidney stones. Patient seen virtually today to repetition Botox for migraines. She had chronic migraines and has failed various treatments and triptans in the past. Botox is the only medication that has been helpful as preventative medication and significantly reducing the frequency and intensity of headaches. Her last Botox was 09/02/2024, patient reported no headaches after that up until 1 month ago when she started experiencing everyday headaches. Since she was headache free she did not schedule her Botox appointment. Limited virtual exam is unremarkable Patient reports compliance to BiPAP use Intractable migraine without aura, with status migrainous Plan: - She is not a candidate for steroids as cycle breaker will do Depakote bridge for 15 days, extended release preparation 500 mg twice daily for 5 days followed by 500 mg once a day for the next 5 days. - Patient continues to remain on Topamax 100 mg twice daily, tizanidine 4 mg for as needed use, Nurtec 75 mg for as needed use - We will petition for Botox and complete 1 round for her at this time, she will follow-up with aFtuma Beckford following this current cycle of Botox. I spent a total of 30 minutes on the date of the service which included preparing to see the patient, [id number] patient care, completing clinical documentation, obtaining and/or reviewing separately obtained history, performing a medically appropriate examination, and counseling and educating the patient/family/caregiver. Amanda Arteaga PA-C 1. This office note has been dictated and may contain minor typographic errors that escaped review 2. The nursing staff and medical assistants are a major part of YOUR TREATMENT TEAM and will be handling your phone calls and inquiries, if any. Unless explicitly told otherwise at the time of your office visit, your study results and ensuing treatment plans will be discussed during your follow-up appointment. If you do not have a follow-up appointment and wish to discuss any issues directly with me, please feel free to obtain one. 3. It is my practice to not fill disability or any other insurance-related forms/documention. All of the office notes, study results, and other pertinent documentation generated as part of your evaluation will be available to you and to your Primary Care Physician (PCP). Use of this material to complete such forms will be at the discretion of your PCP/referring physician 03/02/2025 PROMIS Global Health Physical Health Summary Physical health: Very good Everyday physical activity, ability: Completely Fatigue: Mild Pain level: 4 General health: Very good Social activities/roles, ability: Very good Physical Health T-Score 50.8 (Very Good) Physical Health Percentile 53 PROMIS Global Health Mental Health Summary Quality of life: Very good Mental health (mood,thinking): Very good Social satisfaction: Very good Emotional problems (anxious,depressed): Rarely Mental Health T-Score 53.3 (Very Good) Mental Health Percentile 63 VAHE-7 Score: (Minimal Anxiety) PROMIS Pain Interference T-Score 56(Mild) PROMIS Pain Interference Percentile 27 Percentiles provide an indication of how a patient's score ranks in relation to the [place] general population. > 31st percentile is within normal limits or better *< 31st percentile is at least SD worse than population, which may be clinically relevant < 16th percentile is at least 1 SD worse than population and warrants attention 03/02/2025 Sleep Apnea Probability Snores loudly: No Tired, fatigued or sleepy in daytime: Yes Stops breathing or choking/gasping during sleep: Yes High blood pressure: No Sleep Apnea Probability Score: 27 (Sleep study not recommended) documented in this encounter [facility] 03-09-2025 Note HNO ID: [id number] Author: AMANDA ARTEAGA PA-C Service: ? Author Type: Physician Marker Assembler Type: Progress Notes Filed: 03/10/2025 07:59 Note Text: [facility] New Patient Evaluation This visit was conducted via virtual platform. Patient was identified by name and and consented to the video evaluation and its limitations. Based on this evaluation it may be necessary for them to schedule a follow up evaluation with me or other neurologists for formal physical examination and if necessary, other studies I have communicated my name and active licensure. The patient's identity and physical location were verified at the time of this visit. Either the patient or their legal front office representative has been informed of the risks and benefits of -- and alternatives to -- treatment through a remote evaluation and consents to proceed with the evaluation remotely. Confirmed verbally that the patient currently located in the [facility].Yes Confirmed verbally that the patient consents to being seen virtually today.Yes Confirmed verbally that the patient consents to being seen by a physician pest controller assistant.Yes CHIEF COMPLAINT: Botox for migraines Tori Gray is a 44 year old female with history of T2DM, LETITIA with BiPAP use, Anxiety, Kidney stones. She is unaccompanied Consult requested for an opinion regarding chronic migraines. My final impression and recommendations will be communicated back to the requesting physician by way of the shared medical record or fax. HPI: As per chart review Seen by General Neurology: Seen by Fatuma Beckford:03/05/2023 HISTORY OF PRESENT ILLNESS: Tori Gray is a 42 year old female, There were no vitals taken for this visit. with a PMH significant for migraine, chronic shoulder pain, LETITIA, HTN, DM type 2. Gets botox for migraines with [facility]. Patient sustained fall and head injury 11/24/22 with LOC. Noted to have botox for migraines last month. Fall causing worsening headaches and dizziness. Headaches not typical for migraine, whole head and worsened with standing up. Hard to sleep, pain worse with standing and turning neck. Right face went numb after fall. Poor short term memory at last appointment. Increased gabapentin to 300mg tid, MRI of the brain and cervical spine were obtained and were normal. Patient also taking topiramate 100mg for preventative and zomig for abortive. Since last visit: botox doing well for migraines. Still taking topiramate 100mg, was on gabapentin for shoulder (doing PT for this). Decreased gabapentin back down due to swelling in legs. Since last appointment, patient notes overall improvement in her postconcussive symptoms. Symptoms notes improved concentration, sleep, headaches. Since last appointment she was given first trial of Botox for migraine, notes significant improvement in her headaches since her first round. Patient is still endorsing some instability issues. States that this can occur anytime of day, briefly, feels as if she is off balance for just a second. Unsure if this is improved at all since her concussion. Notes that she ended up falling the other day from her tanning bed due to this imbalance issue. No loss of consciousness, no injury, no lightheadedness, patient states she is unsure how she ended up on the ground. No tongue biting, no incontinence, no seizure-like activity to her knowledge. Notes other instances of imbalance occur anytime of day, notes that she will be standing at work and all of a sudden become slightly off balance as if 1 foot is heavier than another. Resolves within seconds, no other falls. This happens daily, multiple times a day. She is unsure if it favors 1 side. Patient denies any room spinning, no lightheadedness, no presyncope, no palpitations. Patient denies any weakness with this, but states that she recently went back to going to the gym, unsure if she is dehydrated as well. Notes that she does go to physical therapy once a week for her chronic shoulder pain, they have been addressing her neck and back pain as well secondary to the fall. Notes that overall she is at 80% of her baseline. Last Botox was 09/02/2024 Today:03/09/2025 History as per patient: -she is here for botox discussion, wants to initiate process again -she was going longer without the need for botox, botox is -she felt migraines come in again, she called Fatuma's office requesting Botox again, her last Botox was -everyday headaches are back, 4 weeks ago -frontal, right side more than left side -sharp pain, sometimes throbbing pain -pain scale 4-8/10 -pain lasts few hours -nausea, with photophobia+ -She has tried Lyrica, Excedrin, Tylenol, Naproxen, Amiovig, Topamax, Amitriptyline, Propranolol and Trokendi XL -she has failed various triptans -she remains on topiramate 100 mg bid, Nurtec is not helping as rescue at this time -Irma 15 a (more content not included)... [facility] 03-04-2025 Telephone encounter Note Tried contacting patient to confirm that she just wants to discuss botox rather than get injections for her upcoming appt as it's a virtual visit, per [place]. Beata Pitts LPN March 04, 2025 2:42 PM [facility] 03-04-2025 Miscellaneous Notes Tried contacting patient to confirm that she just wants to discuss botox rather than get injections for her upcoming appt as it's a virtual visit, per [place]. Beata Pitts LPN March 04, 2025 2:42 PM documented in this encounter [facility] 03-02-2025 History of Presen t illness Narrative Patient presents with: Follow Up HPI:This visit is a virtual encounter. It required patient-provider interaction for the medical decision making as documented below. Patient has elected to have a visit through distance medicine I have communicated my name and active licensure. The patient's identity and physical location were verified at the time of this visit. Either the patient or their legal front office representative has been informed of the risks and benefits of -- and alternatives to -- treatment through a remote evaluation and consents to proceed with the evaluation remotely. Wants to be seen to discuss migraines and chronic left shoulder pain. Has seen multiple specialists for her shoulder in the past. Was just referred recently back to physical therapy for dry needling. Sees headache med. Used to get botox. Has not had any since August. She tried to see neurology. Her headache specialist is on leave. Has to set up with neuro again. Sees them again on 03/09/25. Using nurtec. Still taking topamax and gabapentin. Still on fluoxetine Using ibu. Has zanaflex. Cannot use steroids. No new neuro complaints with the headache. . Therapy has helped some with her shoulder. She would like me to send over referral at [facility]. They specialize in shoulders. Seen at optometry at [facility] for dilated vision check on February 04. No changes seen. MEDICATIONS: Current Outpatient Medications Medication Sig tiZANidine (ZANAFLEX) 4 mg tablet Take 1 tablet by mouth every 8 hours as needed (muscle spasms). FLUoxetine (PROZAC) 20 mg capsule Take 1 capsule by mouth once daily. gabapentin (NEURONTIN) 300 mg capsule Take 1 capsule by mouth two times a day for 180 days. semaglutide (OZEMPIC) 1 mg/dose (4 mg/3 mL) pen Inject 1 mg subcutaneously one time a week. topiramate (TOPAMAX) 100 mg tablet Take 1 tablet by mouth two times a day. potassium chloride (KLOR-CON) 20 mEq packet Take 20 mEq by mouth as needed. albuterol HFA (VENTOLIN HFA) 90 mcg/actuation inhaler Inhale 2 Puffs as instructed every 4 hours as needed for wheezing/shortness of breath. ondansetron (ZOFRAN) 4 mg tablet Take 1 tablet by mouth every 8 hours as needed for nausea/vomiting. lisinopril (ZESTRIL) 10 mg tablet Take 1 tablet by mouth once daily. rimegepant (NURTEC ODT) 75 mg disintegrating tablet Take 1 tablet by mouth once daily as needed. naratriptan (AMERGE) 2.5 mg tablet Take 1 tablet (2.5 mg) by mouth as directed. at the onset of headache; if headache returns or does not fully resolve, the dose may be repeated after 4 hours; do not exceed five(5) mg in 24 hours. NO more than 10 doses a month. fexofenadine (ALMA ALLERGY) 180 mg tablet Take 1 tablet by mouth once daily. Ipratropium [place] (ATROVENT) 21 mcg (0.03 %) nasal spray Use 2 Sprays in the nose every 12 hours. omeprazole (PRILOSEC) 20 mg capsule Take 1 capsule by mouth daily before breakfast. 1/2 hr before meal. MAGNESIUM ORAL Take by mouth. meclizine (ANTIVERT) 25 mg tab Take 25 mg by mouth once daily. Takes two tabs in am BIPAP levonorgestrel (KYLEENA) 17.5 mcg/24 hrs (5 yrs) 19.5 mg IUD 1 Each by INTRAUTERINE route as directed. Herrick-3 Fatty Acids (FISH OIL) 500 mg cap Take 1 capsule by mouth once daily. blood sugar diagnostic (BLOOD GLUCOSE TEST) test strip Test blood sugar(s) 1 times daily. Dx: Type 2 DM - Controlled E11.9 Insulin: Yes Lancets lancets Test blood sugar(s) 1 times daily. Dx: Type 2 DM - Controlled E11.9 Insulin: No Aywgxwme-Qf-Dwn-Fe-FA tab Take 1 tablet by mouth once daily. No current facility-administered medications for this visit. ALLERGIES: ALLERGIES Allergen Reactions Farxiga [Dapagliflo* GI Upset Lidocaine Hives Metformin GI Upset Steroids [Betametha* Hives PAST MEDICAL HISTORY Diagnosis Date Acute cholecystitis Cholecystitis Anxiety 06/07/2014 Chronic back pain Kidney stones LETITIA treated with BiPAP Type 2 diabetes mellitus (HCC) PAST SURGICAL HISTORY Procedure Laterality Date DELIVERY ONLY 2005 , low cervical INSERT INTRAUTERINE DEVICE 10/19/08 mirena LAPAROSCOPY SURG CHOLECYSTECTOMY 2005 Cholecystectomy, lap (Rowena Monet) PAST SURGICAL HISTORY OF 2019 stent into kidney REMOVE IUD 07/13/2010 FAMILY HISTORY Problem Relation Age of Onset Alcohol/Drug Mother Heart Father [place] Cancer Father PANCREATIC CANCER Diabetes Father Coronary Artery Disease Father Anxiety disorder Sister Depression Sister Depression Brother Cancer Maternal Grandmother LUNG CANCER Diabetes Maternal Grandfather Heart Paternal Grandmother TRIPLE BYPASS SURGERY Social History Tobacco Use Smoking status: Never Smokeless tobacco: Never Vaping Use Vaping status: Never Used Substance Use Topics Alcohol use: No Drug use: No Reviewed current medications, allergies, past medical history, surgical history, family history and social history today. REVIEW OF SYSTEMS All other reviewed and negative other than HPI. VITALS: Could not assess Last 4 Encounter Wt Readings: Date: Wt: 01/22/2025 127.9 kg (282 lb) 12/11/2024 125.7 kg (277 lb 1.9 oz) 09/03/2024 126.9 kg (279 lb 10.5 oz) 08/05/2024 131.5 kg (289 lb 14.5 oz) PHYSICAL EXAMINATION: Patient is alert and oriented during visit. Answers appropriately. Breathing comfortably.. chest rise normal. No audible wheeze. No pallor. ASSESSMENT/PLAN: 1. Intractable chronic migraine without aura and without status migrainosus - ICD9: 346.71, ICD10: G43.719 (primary diagnosis) - Discussed risks and benefits of new medication with the patient. Advised them to call if any side effects or questions. No other nsaids while on it. I am hesitant to add more meds and is seeing neuro next week. Red flags for re-assessment reviewed with patient in detail. - MELOXICAM 15 MG TABLET 2. Chronic left shoulder pain - ICD9: 719.41, 338.29, ICD10: M25.512, G89.29 - continue therapy. - MELOXICAM 15 MG TABLET - CONSULT TO ORTHOPAEDICS Ivette Grimes MD documented in this encounter [facility] 03-02-2025 Note HNO ID: [id number] Author: IVETTE GRIMES MD Service: ? Author Type: Physician Type: Progress Notes Filed: 03/02/2025 10:46 Note Text: Patient presents with: Follow Up HPI:This visit is a virtual encounter. It required patient-provider interaction for the medical decision making as documented below. Patient has elected to have a visit through distance medicine I have communicated my name and active licensure. The patient's identity and physical location were verified at the time of this visit. Either the patient or their legal front office representative has been informed of the risks and benefits of -- and alternatives to -- treatment through a remote evaluation and consents to proceed with the evaluation remotely. Wants to be seen to discuss migraines and chronic left shoulder pain. Has seen multiple specialists for her shoulder in the past. Was just referred recently back to physical therapy for dry needling. Sees headache med. Used to get botox. Has not had any since August. She tried to see neurology. Her headache specialist is on leave. Has to set up with neuro again. Sees them again on 03/09/25. Using nurtec. Still taking topamax and gabapentin. Still on fluoxetine Using ibu. Has zanaflex. Cannot use steroids. No new neuro complaints with the headache. . Therapy has helped some with her shoulder. She would like me to send over referral at [facility]. They specialize in shoulders. Seen at optometry at [facility] for dilated vision check on February 04. No changes seen. MEDICATIONS: Current Outpatient Medications Medication Sig tiZANidine (ZANAFLEX) 4 mg tablet Take 1 tablet by mouth every 8 hours as needed (muscle spasms). FLUoxetine (PROZAC) 20 mg capsule Take 1 capsule by mouth once daily. gabapentin (NEURONTIN) 300 mg capsule Take 1 capsule by mouth two times a day for 180 days. semaglutide (OZEMPIC) 1 mg/dose (4 mg/3 mL) pen Inject 1 mg subcutaneously one time a week. topiramate (TOPAMAX) 100 mg tablet Take 1 tablet by mouth two times a day. potassium chloride (KLOR-CON) 20 mEq packet Take 20 mEq by mouth as needed. albuterol HFA (VENTOLIN HFA) 90 mcg/actuation inhaler Inhale 2 Puffs as instructed every 4 hours as needed for wheezing/shortness of breath. ondansetron (ZOFRAN) 4 mg tablet Take 1 tablet by mouth every 8 hours as needed for nausea/vomiting. lisinopril (ZESTRIL) 10 mg tablet Take 1 tablet by mouth once daily. rimegepant (NURTEC ODT) 75 mg disintegrating tablet Take 1 tablet by mouth once daily as needed. naratriptan (AMERGE) 2.5 mg tablet Take 1 tablet (2.5 mg) by mouth as directed. at the onset of headache; if headache returns or does not fully resolve, the dose may be repeated after 4 hours; do not exceed five(5) mg in 24 hours. NO more than 10 doses a month. fexofenadine (ALMA ALLERGY) 180 mg tablet Take 1 tablet by mouth once daily. Ipratropium [place] (ATROVENT) 21 mcg (0.03 %) nasal spray Use 2 Sprays in the nose every 12 hours. omeprazole (PRILOSEC) 20 mg capsule Take 1 capsule by mouth daily before breakfast. 1/2 hr before meal. MAGNESIUM ORAL Take by mouth. meclizine (ANTIVERT) 25 mg tab Take 25 mg by mouth once daily. Takes two tabs in am BIPAP levonorgestrel (KYLEENA) 17.5 mcg/24 hrs (5 yrs) 19.5 mg IUD 1 Each by INTRAUTERINE route as directed. Herrick-3 Fatty Acids (FISH OIL) 500 mg cap Take 1 capsule by mouth once daily. blood sugar diagnostic (BLOOD GLUCOSE TEST) test strip Test blood sugar(s) 1 times daily. Dx: Type 2 DM - Controlled E11.9 Insulin: Yes Lancets lancets Test blood sugar(s) 1 times daily. Dx: Type 2 DM - Controlled E11.9 Insulin: No Otnkxtrv-Iy-Qps-Fe-FA tab Take 1 tablet by mouth once daily. No current facility-administered medications for this visit. ALLERGIES: ALLERGIES Allergen Reactions Farxiga [Dapagliflo* GI Upset Lidocaine Hives Metformin GI Upset Steroids [Betametha* Hives PAST MEDICAL HISTORY Diagnosis Date Acute cholecystitis Cholecystitis Anxiety 06/07/2014 Chronic back pain Kidney stones LETITIA treated with BiPAP Type 2 diabetes mellitus (HCC) PAST SURGICAL HISTORY Procedure Laterality Date DELIVERY ONLY 2005 , low cervical INSERT INTRAUTERINE DEVICE 10/19/08 mirena LAPAROSCOPY SURG CHOLECYSTECTOMY 2006 Cholecystectomy, lap (Rowena Monet) PAST SURGICAL HISTORY OF 2019 stent into kidney REMOVE IUD 07/13/2010 FAMILY HISTORY Problem Relation Age of Onset Alcohol/Drug Mother Heart Father [place] Cancer Father PANCREATIC CANCER Diabetes Father Coronary Artery Disease Father Anxiety disorder Sister Depression Sister Depression Brother Cancer Maternal Grandmother LUNG CANCER Diabetes Maternal Grandfather Heart Paternal Grandmother TRIPLE BYPASS SURGERY Social History Tobacco Use Smoking status: Never Smokeless tobacco: Never Vaping Use Vaping status: Never Used Substance Use Topics Alcohol use (more content not included)... [facility] 02-04-2025 Evaluation note Diagnosis Onset Date Resolution Segmental and somatic dysfunction of cervical region acute February 04, 2025 2:21pm Segmental and somatic dysfunction of lumbar region acute February 04, 2025 2:21pm Segmental and somatic dysfunction of pelvic region acute February 04, 2025 2:21pm Segmental and somatic dysfunction of thoracic region acute February 04, 2025 2:21pm Disc displacement, lumbar chronic February 04, 2025 2:21pm Segmental and somatic dysfunction of cervical region acute March 09, 2025 9: 17am Segmental and somatic dysfunction of lumbar region acute March 09, 2025 9: 17am Segmental and somatic dysfunction of pelvic region acute March 09, 2025 9: 17am Segmental and somatic dysfunction of thoracic region acute March 09, 2025 9: 17am Disc displacement, lumbar chronic March 09, 2025 9: 17am [facility] Work Phone: 1(247) 556-976604-03-2025 Evaluation note* Diagnosis Onset Date Resolution Status Admit Date Segmental and somatic dysfunction of cervical region acute A pril 2024 2:21pm Segmental and somatic dysfunction of lumbar region acute Apr il 2024 2:21pm Segmental and somatic dysfunction of pelvic region acute Apr il 2024 2:21pm Segmental and somatic dysfunction of thoracic region acute A pril 2024 2:21pm Disc displacement, lumbar chronic February 04, 2025 2:21pm Segmental and somatic dysfunction of cervical region acute M ay 2024 9:17am Segmental and somatic dysfunction of lumbar region acute March 09, 2025 9:17am Segmental and somatic dysfunction of pelvic region acute March 09, 2025 9:17am Segmental and somatic dysfunction of thoracic region acute M ay 2024 9:17am Disc displacement, lumbar chronic March 09, 2025 9:17am Left shoulder pain inactive March 222024 8:58am [facility] Work Phone: 1(903) 908-640704-03-2025 Evaluation note* Diagnosis Onset Date Resolution Status Admit Date Segmental and somatic dysfunction of cervical region acute A pril 2024 2:21pm Segmental and somatic dysfunction of lumbar region acute Apr il 2024 2:21pm Segmental and somatic dysfunction of pelvic region acute Apr il 2024 2:21pm Segmental and somatic dysfunction of thoracic region acute A pril 2024 2:21pm Disc displacement, lumbar chronic February 04, 2025 2:21pm Segmental and somatic dysfunction of cervical region acute M ay 2024 9:17am Segmental and somatic dysfunction of lumbar region acute March 09, 2025 9:17am Segmental and somatic dysfunction of pelvic region acute March 09, 2025 9:17am Segmental and somatic dysfunction of thoracic region acute M ay 2024 9:17am Disc displacement, lumbar chronic March 09, 2025 9:17am Left shoulder pain inactive March 222024 8:58am Back pain acute March 22, 2025 9:33am Segmental and somatic dysfunction of cervical region acute M ay 2024 9:33am Segmental and somatic dysfunction of lumbar region acute March 22, 2025 9:33am Segmental and somatic dysfunction of pelvic region acute March 22, 2025 9:33am Segmental and somatic dysfunction of thoracic region acute M 2024 9:33am [facility] Work Phone: 1(388) 144-370504-03-2025 Evaluation note* Diagnosis Onset Date Resolution Status Admit Date Segmental and somatic dysfunction of cervical region acute A pril 2024 2:21pm Segmental and somatic dysfunction of lumbar region acute Apr 2024 2:21pm Segmental and somatic dysfunction of pelvic region acute Apr 2024 2:21pm Segmental and somatic dysfunction of thoracic region acute A pril 2024 2:21pm Disc displacement, lumbar chronic February 04, 2025 2:21pm Segmental and somatic dysfunction of cervical region acute M ay 2024 9:17am Segmental and somatic dysfunction of lumbar region acute March 09, 2025 9:17am Segmental and somatic dysfunction of pelvic region acute March 09, 2025 9:17am Segmental and somatic dysfunction of thoracic region acute M ay 2024 9:17am Disc displacement, lumbar chronic March 09, 2025 9:17am Left shoulder pain inactive March 222024 8:58am Back pain acute March 22, 2025 9:33am Segmental and somatic dysfunction of cervical region acute M ay 2024 9:33am Segmental and somatic dysfunction of lumbar region acute March 22, 2025 9:33am Segmental and somatic dysfunction of pelvic region acute March 22, 2025 9:33am Segmental and somatic dysfunction of thoracic region acute M ay 2024 9:33am Segmental and somatic dysfunction of cervical region acute J une 2024 10:22am Segmental and somatic dysfunction of lumbar region acute Noah e 2024 10:22am Segmental and somatic dysfunction of pelvic region acute Noah e 2024 10:22am Segmental and somatic dysfunction of thoracic region acute J une 2024 10:22am Disc displacement, lumbar chronic April 05, 2025 10:22am Radiculopathy of lumbosacral region suspected April 05, 2025 1 0:22am [facility] Work Phone: 1(438) 438-354504-02-2025 Telephone encounter Note* Telephone Encounter - Evon Philippe LPN - 02/03/2025 11:46 AM EDT Fax rec'd and in scanned documents. No PA is needed for ozempic. This is approved until 08/05/25. Called the pharmacy and this is going through insurance now. On 01/25/25 it prompted the PA. That message to the pharmacy said the pt needed to use 80% of the previous dose. She has met this now. 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 [facility]04-02-2025 Miscellaneous Notes* Telephone Encounter - Evon Philippe LPN - 02/03/2025 11:46 AM EDT Fax rec'd and in scanned documents. No PA is needed for ozempic. This is approved until 08/05/25. Called the pharmacy and this is going through insurance now. On 01/25/25 it prompted the PA. That message to the pharmacy said the pt needed to use 80% of the previous dose. She has met this now. 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 * Telephone Encounter - Mirna Santos MA - 02/01/2025 2:42 PM EDT Faxed form completed to [facility] with A1C and office note Mirna Santos MA * Telephone Encounter - Evon Philippe LPN - 01/29/2025 8:31 AM EDT [employer] RESPONSE. [facility] does not handle this review. Please visit [email or web address] to start a prior authorization or fax information to [phone]. Please include all supporting chart notes. You may contact [employer] at [phone]. WILL FAX PA REQUEST TO NUMBER PROVIDED. Records faxed to for PA. * Telephone Encounter - Evon Philippe LPN - 01/28/2025 4:56 PM EDT Unable to complete electronically. Will try on covermymeds * Telephone Encounter - Evon Philippe LPN - 01/28/2025 4:55 PM EDT Electronic PA requested. * Telephone Encounter - Krystle Barnett RN - 01/28/2025 4:51 PM EDT Prior Authorization Documentation Prior authorization requested for the following medication: Medication: Ozempic 1 mg (all though PA done in Aug 2024 and approved until Aug 2025 this needs PA due to dose change). Provider: [employer] Name: [employer] Phone number: [phone] Patient ID number: [id number] Pharmacy Name: [facility] Telephone number: [phone] [facility] encounter Note * Telephone Encounter - Mirna Santos MA - 02/01/2025 2:42 PM EDT Faxed form completed to [employer] with A1C and office note Mirna Santos MA [facility]03-28-2025 Telephone encounter Note* Telephone Encounter - Evon Philippe LPN - 01/29/2025 8:31 AM EDT [employer] RESPONSE. [facility] does not handle this review. Please visit [email or web address] to start a prior authorization or fax information to [phone]. Please include all supporting chart notes. You may contact [employer] at [phone]. WILL FAX PA REQUEST TO NUMBER PROVIDED. Records faxed to for PA. [facility]03-27-2025 Telephone encounter Note* Telephone Encounter - Evon Philippe LPN - 01/28/2025 4:56 PM EDT Unable to complete electronically. Will try on covermymeds [facility]03-27-2025 Telephone encounter Note* Telephone Encounter - Evon Philippe LPN - 01/28/2025 4:55 PM EDT Electronic PA requested. [facility]03-27-2025 Telephone encounter Note* Telephone Encounter - Krystle Barnett RN - 01/28/2025 4:51 PM EDT Prior Authorization Documentation Prior authorization requested for the following medication: Medication: Ozempic 1 mg (all though PA done in Aug 2024 and approved until Aug 2025 this needs PA due to dose change). Provider: [employer] Name: [facility] [employer] Phone number: [phone] Patient ID number: [id number] Pharmacy Name: [facility] Pharm[facility] Pharmacy Telephone number: [phone] [facility]03-27-2025 Telephone encounter Note* Telephone Encounter - Dennise Robles MA - 01/28/2025 8:45 AM EDT Scan on 01/28/2025 8:29 AM by Sherry Mccallum PA-C: BMP Scan on 01/28/2025 8:17 AM by ProviderSherry PA-C: HGB A1C [facility]03-27-2025 Miscellaneous Notes* Telephone Encounter - Dennise Robles MA - 01/28/2025 8:45 AM EDT Scan on 01/28/2025 8:29 AM by ProviderSherry PA-C: BMP Scan on 01/28/2025 8:17 AM by ProviderSherry PA-C: HGB A1C documented in this encounter[facility]03-[facility]-2025 NoteHNO ID: [id number] Author: IVETTE GRIMES MD Service: ? Author Type: Physician Type: Progress Notes Filed: 01/22/2025 16:08 Note Text: Patient presents with: Numbness: Left arm-Feels coming from her shoulder. Has a spot that if she touches can make her arm go numb. Diabetes: Following up updated ozempic dose HPI: Patient presents today for office visit for follow up. Fasting glucose is still up. Due for follow up A1c. No symptoms. No chest pain or shortness of breath. Migraines are stable. Has not needed botox in a while. Has a hx of shoulder issues. Has done physical therapy in the past for same. Arm goes numb. Has seen Dr Sanchez in the past for it in the past. She feels when she had dry needling in the past and therapy. It helps. No trauma. Moods have been good. No heartburn. MEDICATIONS: Current Outpatient Medications Medication Sig semaglutide (OZEMPIC) 0.25 mg or 0.5 mg (2 mg/3 mL) pen Inject 0.5 mg subcutaneously one time a week. topiramate (TOPAMAX) 100 mg tablet Take 1 tablet by mouth two times a day. potassium chloride (KLOR-CON) 20 mEq packet Take 20 mEq by mouth as needed. albuterol HFA (VENTOLIN HFA) 90 mcg/actuation inhaler Inhale 2 Puffs as instructed every 4 hours as needed for wheezing/shortness of breath. tiZANidine (ZANAFLEX) 4 mg tablet Take 1 tablet by mouth every 8 hours as needed (muscle spasms). FLUoxetine (PROZAC) 20 mg capsule Take 1 capsule by mouth once daily. ondansetron (ZOFRAN) 4 mg tablet Take 1 tablet by mouth every 8 hours as needed for nausea/vomiting. lisinopril (ZESTRIL) 10 mg tablet Take 1 tablet by mouth once daily. rimegepant (NURTEC ODT) 75 mg disintegrating tablet Take 1 tablet by mouth once daily as needed. gabapentin (NEURONTIN) 300 mg capsule Take 1 capsule by mouth two times a day for 180 days. naratriptan (AMERGE) 2.5 mg tablet Take 1 tablet (2.5 mg) by mouth as directed. at the onset of headache; if headache returns or does not fully resolve, the dose may be repeated after 4 hours; do not exceed five(5) mg in 24 hours. NO more than 10 doses a month. fexofenadine (ALMA ALLERGY) 180 mg tablet Take 1 tablet by mouth once daily. Ipratropium [place] (ATROVENT) 21 mcg (0.03 %) nasal spray Use 2 Sprays in the nose every 12 hours. omeprazole (PRILOSEC) 20 mg capsule Take 1 capsule by mouth daily before breakfast. 1/2 hr before meal. MAGNESIUM ORAL Take by mouth. meclizine (ANTIVERT) 25 mg tab Take 25 mg by mouth once daily. Takes two tabs in am BIPAP levonorgestrel (KYLEENA) 17.5 mcg/24 hrs (5 yrs) 19.5 mg IUD 1 Each by INTRAUTERINE route as directed. Herrick-3 Fatty Acids (FISH OIL) 500 mg cap Take 1 capsule by mouth once daily. blood sugar diagnostic (BLOOD GLUCOSE TEST) test strip Test blood sugar(s) 1 times daily. Dx: Type 2 DM - Controlled E11.9 Insulin: Yes Lancets lancets Test blood sugar(s) 1 times daily. Dx: Type 2 DM - Controlled E11.9 Insulin: No Mgxirhxz-Mv-Wmz-Fe-FA tab Take 1 tablet by mouth once daily. No current facility-administered medications for this visit. ALLERGIES: ALLERGIES Allergen Reactions Farxiga [Dapagliflo* GI Upset Lidocaine Hives Metformin GI Upset Steroids [Betametha* Hives PAST MEDICAL HISTORY Diagnosis Date Acute cholecystitis Cholecystitis Anxiety 06/07/2014 Chronic back pain Kidney stones LETITIA treated with BiPAP Type 2 diabetes mellitus (HCC) PAST SURGICAL HISTORY Procedure Laterality Date DELIVERY ONLY 2005 , low cervical INSERT INTRAUTERINE DEVICE 10/19/08 mirena LAPAROSCOPY SURG CHOLECYSTECTOMY 2006 Cholecystectomy, lap (Rowena Monet) PAST SURGICAL HISTORY OF 2019 stent into kidney REMOVE IUD 07/13/2010 FAMILY HISTORY Problem Relation Age of Onset Alcohol/Drug Mother Heart Father [place] Cancer Father PANCREATIC CANCER Diabetes Father Coronary Artery Disease Father Anxiety disorder Sister Depression Sister Depression Brother Cancer Maternal Grandmother LUNG CANCER Diabetes Maternal Grandfather Heart Paternal Grandmother TRIPLE BYPASS SURGERY Social History Tobacco Use Smoking status: Never Smokeless tobacco: Never Vaping Use Vaping status: Never Used Substance Use Topics Alcohol use: No Drug use: No Reviewed current medications, allergies, past medical history, surgical history, family history and social history today. REVIEW OF SYSTEMS All other reviewed and negative other than HPI. HEALTH MAINTENANCE: Reviewed health maintenance issues today and recommended the following in detail. Depression Screening Never done Mammogram Screening -ordered. Cervical Cancer Screening has to reschedule. BP Controlled (<130/80) due on 03/05/2024 Dilated Retinal Exam-due for recheck. Is trying. HbA1C due on 01/01/2025 VITALS: BP 122/72 Pulse 77 Wt 127.9 kg (282 lb) LMP (LMP Unknown) SpO2 97% BMI 44.17 kg/m? Last 4 Encounter Wt Readings: Date: Wt: (more content not included)...[facility]03-21-2025 History of Present illness Narrative* Ivette Grimes MD - 01/22/2025 3:52 PM EDT Patient presents with: Numbness: Left arm-Feels coming from her shoulder. Has a spot that if she touches can make her arm go numb. Diabetes: Following up updated ozempic dose HPI: Patient presents today for office visit for follow up. Fasting glucose is still up. Due for follow up A1c. No symptoms. No chest pain or shortness of breath. Migraines are stable. Has not needed botox in a while. Has a hx of shoulder issues. Has done physical therapy in the past for same. Arm goes numb. Has seen Dr Sanchez in the past for it in the past. She feels when she had dry needling in the past and therapy. It helps. No trauma. Moods have been good. No heartburn. MEDICATIONS: Current Outpatient Medications Medication Sig semaglutide (OZEMPIC) 0.25 mg or 0.5 mg (2 mg/3 mL) pen Inject 0.5 mg subcutaneously one time a week. topiramate (TOPAMAX) 100 mg tablet Take 1 tablet by mouth two times a day. potassium chloride (KLOR-CON) 20 mEq packet Take 20 mEq by mouth as needed. albuterol HFA (VENTOLIN HFA) 90 mcg/actuation inhaler Inhale 2 Puffs as instructed every 4 hours asneeded for wheezing/shortness of breath. tiZANidine (ZANAFLEX) 4 mg tablet Take 1 tablet by mouth every 8 hours as needed (muscle spasms). FLUoxetine (PROZAC) 20 mg capsule Take 1 capsule by mouth once daily. ondansetron (ZOFRAN) 4 mg tablet Take 1 tablet by mouth every 8 hours as needed for nausea/vomiting. lisinopril (ZESTRIL) 10 mg tablet Take 1 tablet by mouth once daily. rimegepant (NURTEC ODT) 75 mg disintegrating tablet Take 1 tablet by mouth once daily as needed. gabapentin (NEURONTIN) 300 mg capsule Take 1 capsule by mouth two times a day for 180 days. naratriptan (AMERGE) 2.5 mg tablet Take 1 tablet (2.5 mg) by mouth as directed. at the onset of headache; if headache returns or does not fully resolve, the dose may be repeated after 4 hours; do notexceed five(5) mg in 24 hours. NO more than 10 doses a month. fexofenadine (ALAM ALLERGY) 180 mg tablet Take 1 tablet by mouth once daily. Ipratropium [place] (ATROVENT) 21 mcg (0.03 %) nasal spray Use 2 Sprays in the nose every 12 hours. omeprazole (PRILOSEC) 20 mg capsule Take 1 capsule by mouth daily before breakfast. 1/2 hr before meal. MAGNESIUM ORAL Take by mouth. meclizine (ANTIVERT) 25 mg tab Take 25 mg by mouth once daily. Takes two tabs in am BIPAP levonorgestrel (KYLEENA) 17.5 mcg/24 hrs (5 yrs) 19.5 mg IUD 1 Each by INTRAUTERINE route as directed. Herrick-3 Fatty Acids (FISH OIL) 500 mg cap Take 1 capsule by mouth once daily. blood sugar diagnostic (BLOOD GLUCOSE TEST) test strip Test blood sugar(s) 1 times daily. Dx: Type 2 DM - Controlled E11.9 Insulin: Yes Lancets lancets Test blood sugar(s) 1 times daily. Dx: Type 2 DM - Controlled E11.9 Insulin: No Fjjlywly-Ak-Bjo-Fe-FA tab Take 1 tablet by mouth once daily. No current facility-administered medications for this visit. ALLERGIES: ALLERGIES Allergen Reactions Farxiga [Dapagliflo* GI Upset Lidocaine Hives Metformin GI Upset Steroids [Betametha* Hives PAST MEDICAL HISTORY Diagnosis Date Acute cholecystitis Cholecystitis Anxiety 06/07/2014 Chronic back pain Kidney stones LETITIA treated with BiPAP Type 2 diabetes mellitus (HCC) PAST SURGICAL HISTORY Procedure Laterality Date DELIVERY ONLY 2005 , low cervical INSERT INTRAUTERINE DEVICE 10/19/08 mirena LAPAROSCOPY SURG CHOLECYSTECTOMY 2005 Cholecystectomy, lap (Rowena Monet) PAST SURGICAL HISTORY OF 2019 stent into kidney REMOVE IUD 07/13/2010 FAMILY HISTORY Problem Relation Age of Onset Alcohol/Drug Mother Heart Father [place] Cancer Father PANCREATIC CANCER Diabetes Father Coronary Artery Disease Father Anxiety disorder Sister Depression Sister Depression Brother Cancer Maternal Grandmother LUNG CANCER Diabetes Maternal Grandfather Heart Paternal Grandmother TRIPLE BYPASS SURGERY Social History Tobacco Use Smoking status: Never Smokeless tobacco: Never Vaping Use Vaping status: Never Used Substance Use Topics Alcohol use: No Drug use: No Reviewed current medications, allergies, past medical history, surgical history, family history andsocial history today. REVIEW OF SYSTEMS All other reviewed and negative other than HPI. HEALTH MAINTENANCE: Reviewed health maintenance issues today and recommended the following in detail. Depression Screening Never done Mammogram Screening -ordered. Cervical Cancer Screening has to reschedule. BP Controlled (<130/80) due on 03/05/2024 Dilated Retinal Exam-due for recheck. Is trying. HbA1C due on 01/01/2025 VITALS: BP 122/72 Pulse 77 Wt 127.9 kg (282 lb) LMP (LMP Unknown) SpO2 97% BMI 44.17 kg/m Last 4 Encounter Wt Readings: Date: Wt: 01/22/2025 127.9 kg (282 lb) 12/11/2024 125.7 kg (277 lb 1.9 oz) 09/03/2024 126.9 kg (279 lb 10.5 oz) 08/05/2024 131.5 kg (289 lb 14.5 oz) PHYSICAL EXAMINATION: General appearance: Well appearing, alert, [...] Musculoskeletal: No joint swelling, deformity, or tenderness Shoulder shows normal range of motion. Negative empty can. Nontender. ASSESSMENT/PLAN: 1. LETITIA (obstructive sleep apnea) - ICD9: 327.23, ICD10: G47.33 (primary diagnosis) - using bipap. Benefiting from its use. 2. Flank pain - ICD9: 789.09, ICD10: R10.9 - TIZANIDINE 4 MG TABLET 3. Headache, unspecified headache type - ICD9: 784.0, ICD10: R51.9 - GABAPENTIN 300 MG CAPSULE 4. Type 2 diabetes mellitus with microalbuminuria, with long-term current use of insulin (HCC) - ICD9: 250.40, 791.0, V58.67, ICD10: E11.29, R80.9, Z79.4 - increase meds. Check bmp. - HEMOGLOBIN A1C - SEMAGLUTIDE 1 MG/DOSE (4 MG/3 ML) SUBCUTANEOUS PEN INJECTOR 5. Essential (primary) hypertension - ICD9: 401.9, ICD10: I10 - Controlled - Continue current medications 6. Chronic left shoulder pain - ICD9: 719.41, 338.29, ICD10: M25.512, G89.29 - CONSULT TO PHYSICAL THERAPY 7. Anxiety - ICD9: 300.00, ICD10: F41.9 - FLUOXETINE 20 MG CAPSULE Continue current medications. Notify us if any difficulties are noted. 8. Screening for depression - ICD9: V79.0, ICD10: Z13.31 - DEPRESSION SCREENING Ivette Grimes RTO in six months and prn. [facility] Telephone encounter Note * Telephone Encounter - Nirmala Storey LPN - 12/25/2024 8:57 AM EST Prescription Refill Information The patient has been identified by name and date of : Yes Caregiver verified no other encounters exist for this prescription request: Yes Caregiver confirmed with patient/requestor that no other refills are due, in the near future, with this provider at this time: Yes The last office visit in the department: 12/11/24 Does the patient have a future office visit with this provider/department: No Requested Prescriptions Pending Prescriptions Disp Refills topiramate (TOPAMAX) 100 mg tablet 60 tablet 5 Sig: Take 1 tablet by mouth two times a day. Nirmala Storey LPN December 25, 2024 8:58 AM [facility]02-21-2025 Miscellaneous Notes* Telephone Encounter - Nirmala Storey LPN - 12/25/2024 8:57 AM EST Prescription Refill Information The patient has been identified by name and date of : Yes Caregiver verified no other encounters exist for this prescription request: Yes Caregiver confirmed with patient/requestor that no other refills are due, in the near future, with this provider at this time: Yes The last office visit in the department: 12/11/24 Does the patient have a future office visit with this provider/department: No Requested Prescriptions Pending Prescriptions Disp Refills topiramate (TOPAMAX) 100 mg tablet 60 tablet 5 Sig: Take 1 tablet by mouth two times a day. Nirmala Storey LPN December 25, 2024 8:58 AM documented in this encounterFair[facility]02-[facility]25 Telephone encounter Note * Telephone Encounter - Jumana Harrell LPN - 12/21/2024 3:19 PM EST Patient notified of results, verbalizes understanding of instructions. Pt stated she is about 80% better with the z-pack and cough drops. Will call is get worse again. Jumana Harrell LPN [facility]02-17-2025 Miscellaneous Notes* Telephone Encounter - Jumana Harrell LPN - 12/21/2024 3:19 PM EST Patient notified of results, verbalizes understanding of instructions. Pt stated she is about 80% better with the z-pack and cough drops. Will call is get worse again. Jumana Harrell LPN * Telephone Encounter - Jenni Martínez APRN.CNP - 12/21/2024 2:33 PM EST Can you please call the patient and let her know that I apologize for not getting back to her sooner. I had to go on and print off her test results from the hospital. Labs were relatively stable. Potassium was normal. Chest x-ray was normal as well. Can you please ask if her symptoms improved with the zpack? Jenni Martínez APRN.CNP documented in this encounterFair[facility]02-[facility]-2025 Telephone encounter Note * Telephone Encounter - Jenni Martínez APRN.CNP - 12/21/2024 2:33 PM EST Can you please call the patient and let her know that I apologize for not getting back to her sooner. I had to go on and print off her test results from the hospital. Labs were relatively stable. Potassium was normal. Chest x-ray was normal as well. Can you please ask if her symptoms improved with the zpack? Jenni Martínez APRN.CNP [facility] Work Phone: [phone]) 531-857302-07-2025 Telephone encounter Note* Telephone Encounter - Jumana Harrell LPN - 12/11/2024 2:24 PM EST Patient notified of results, verbalizes understanding of instructions. Jumana Harrell LPN [facility]02-07-2025 Miscellaneous Notes* Telephone Encounter - Jumana Harrell LPN - 12/11/2024 2:24 PM EST Patient notified of results, verbalizes understanding of instructions. Jumana Harrell LPN * Telephone Encounter - Jenni Martínez APRN.CNP - 12/11/2024 2:16 PM EST Can you please call the patient and let her know that I am still waiting for x- ray results from [facility]. I went ahead and sent in a prescription for azithromycin until results are reviewed. I want her tocontinue supportive care at home. I will be in contact with her once I receive results. Please let me know if she has any questions. Thank you The following approved medication requests have been transmitted electronically. Requested Prescriptions Signed Prescriptions Disp Refills azithromycin (ZITHROMAX Z-TEMO) 250 mg tablet 6 tablet 0 Sig: Take 2 tablets day one, then, 1 tablet daily until gone. Authorizing Provider: JENNI MARTÍNEZ APRN.CNP documented in this encounterFair[facility]02-[facility]-2025 Telephone encounter Note * Telephone Encounter - Jenni Martínez APRN.CNP - 12/11/2024 2:16 PM EST Can you please call the patient and let her know that I am still waiting for x- ray results from [facility]. I went ahead and sent in a prescription for azithromycin until results are reviewed. I want her tocontinue supportive care at home. I will be in contact with her once I receive results. Please let me know if she has any questions. Thank you The following approved medication requests have been transmitted electronically. Requested Prescriptions Signed Prescriptions Disp Refills azithromycin (ZITHROMAX Z-TEMO) 250 mg tablet 6 tablet 0 Sig: Take 2 tablets day one, then, 1 tablet daily until gone. Authorizing Provider: JENNI MARTÍNEZ APRN.CNP [facility]02-07-2025 Instructions* Patient Instructions* Jenni Martínez APRN.CNP - 12/11/2024 11:32 AM EST Get chest xray completed today May use Codeine cough syrup as needed for cough Stay well hydrated Follow up pending test results. documented in this encounterFair[facility]02-07-2025 History of Present illness Narrative* Jenni Martínez APRN.CNP - 12/11/2024 11:00 AM EST This is a 44 year old female who presents today with: Patient presents with: Acute Visit: cough, congestion x 4 weeks HISTORY OF PRESENT ILLNESS: Tori Gray is a 44 year old female. Patient presents with: Acute Visit: cough, congestion x [address] Grimes here in the office for sinus congestion and cough. Symptoms started 1 month ago. She does have green mucus when blowing her nose and sometimes is coughing it up. Went to the ER on12/01 due to vision being blurry, felt very fatigued, found out her potassium was 2.6. Was given potassium to drink and told to drink body armor drinks. Had Tessalon perrls from last bronchitis and they were not effective. Is having problems stopping her cough once it starts. Reports wheezing. Taking VaboRub, Dayquil, nyquil, mucinex, has been using CPAP. Denies fever or chills, nausea/vomiting, diarrhea/consitpation. PAST MEDICAL HISTORY: PAST MEDICAL HISTORY Diagnosis Date Acute cholecystitis Cholecystitis Anxiety 06/07/2014 Chronic back pain Kidney stones LETITIA treated with BiPAP Type 2 diabetes mellitus (HCC) PAST SURGICAL HISTORY Procedure Laterality Date DELIVERY ONLY 2005 , low cervical INSERT INTRAUTERINE DEVICE 10/19/08 mirena LAPAROSCOPY SURG CHOLECYSTECTOMY 2006 Cholecystectomy, lap (Rowena Monet) PAST SURGICAL HISTORY OF 2019 stent into kidney REMOVE IUD 07/13/2010 ALLERGIES Farxiga [Dapagliflozin], Lidocaine, Metformin, and Steroids [Betamethasone Dipropionate] MEDICATIONS Current Outpatient Medications Medication Sig albuterol HFA (VENTOLIN HFA) 90 mcg/actuation inhaler Inhale 2 Puffs as instructed every 4 hours asneeded for wheezing/shortness of breath. tiZANidine (ZANAFLEX) 4 mg tablet Take 1 tablet by mouth every 8 hours as needed (muscle spasms). FLUoxetine (PROZAC) 20 mg capsule Take 1 capsule by mouth once daily. ondansetron (ZOFRAN) 4 mg tablet Take 1 tablet by mouth every 8 hours as needed for nausea/vomiting. semaglutide (OZEMPIC) 0.25 mg or 0.5 mg (2 mg/3 mL) pen Inject 0.5 mg subcutaneously one time a week. lisinopril (ZESTRIL) 10 mg tablet Take 1 tablet by mouth once daily. rimegepant (NURTEC ODT) 75 mg disintegrating tablet Take 1 tablet by mouth once daily as needed. topiramate (TOPAMAX) 100 mg tablet Take 1 tablet by mouth two times a day. gabapentin (NEURONTIN) 300 mg capsule Take 1 capsule by mouth two times a day for 180 days. naratriptan (AMERGE) 2.5 mg tablet Take 1 tablet (2.5 mg) by mouth as directed. at the onset of headache; if headache returns or does not fully resolve, the dose may be repeated after 4 hours; do notexceed five(5) mg in 24 hours. NO more than 10 doses a month. albuterol HFA (VENTOLIN HFA) 90 mcg/actuation inhaler Inhale 2 Puffs as instructed every 4 hours asneeded for wheezing/shortness of breath. fexofenadine (ALMA ALLERGY) 180 mg tablet Take 1 tablet by mouth once daily. Ipratropium [place] (ATROVENT) 21 mcg (0.03 %) nasal spray Use 2 Sprays in the nose every 12 hours. omeprazole (PRILOSEC) 20 mg capsule Take 1 capsule by mouth daily before breakfast. 1/2 hr before meal. MAGNESIUM ORAL Take by mouth. meclizine (ANTIVERT) 25 mg tab Take 25 mg by mouth once daily. Takes two tabs in am BIPAP levonorgestrel (KYLEENA) 17.5 mcg/24 hrs (5 yrs) 19.5 mg IUD 1 Each by INTRAUTERINE route as directed. Herrick-3 Fatty Acids (FISH OIL) 500 mg cap Take 1 capsule by mouth once daily. blood sugar diagnostic (BLOOD GLUCOSE TEST) test strip Test blood sugar(s) 1 times daily. Dx: Type 2 DM - Controlled E11.9 Insulin: Yes Lancets lancets Test blood sugar(s) 1 times daily. Dx: Type 2 DM - Controlled E11.9 Insulin: No Kosxdqyh-Gz-Qav-Fe-FA tab Take 1 tablet by mouth once daily. No current facility-administered medications for this visit. FAMILY HISTORY Problem Relation Age of Onset Alcohol/Drug Mother Heart Father [place] Cancer Father PANCREATIC CANCER Diabetes Father Coronary Artery Disease Father Anxiety disorder Sister Depression Sister Depression Brother Cancer Maternal Grandmother LUNG CANCER Diabetes Maternal Grandfather Heart Paternal Grandmother TRIPLE BYPASS SURGERY Social History Tobacco Use Smoking status: Never Smokeless tobacco: Never Vaping Use Vaping status: Never Used Substance Use Topics Alcohol use: No Drug use: No REVIEW OF SYSTEMS GENERAL: No weight loss, malaise or fevers/chills HEENT: + Sinus Congestion NECK: Negative for lumps, goiter, pain and significant neck swelling RESPIRATORY: + Cough CARDIOVASCULAR: Negative for chest pain, leg swelling, orthopnea, or palpitations GI: No nausea, vomiting, or diarrhea/constipation. No hematochezia/melena. No heartburn or reflux symptoms. : No history of dysuria, frequency or incontinence MUSCULOSKELETAL: Negative for joint pain or swelling. SKIN: Negative for lesions, rash, and itching ENDOCRINE: Negative for cold or heat intolerance, polyuria, polydipsia and goiter NEURO: No history of headaches, syncope, paralysis, seizures or tremors MOOD: Negative for depression, anxiety, or suicidal ideation. EXAM: BP 138/74 Pulse 72 Temp 36.6 C (97.8 F) (Tympanic) Resp 16 Wt 125.7 kg (277 lb 1.9 oz) LMP (LMP Unknown) SpO2 99% BMI 43.40 kg/m PHYSICAL EXAM: General Appearance: Ill appearing, alert, in no acute distress, well-hydrated, well nourished. Skin: Skin color, texture, turgor normal, no suspicious rashes or lesions. Head: Normocephalic, no masses, lesions, tenderness or abnormalities. Eyes: Anicteric sclera. Extraocular movements are intact. Ears: External ears normal, bilateral cerumen impaction noted. Nose/Sinuses: Positive findings: mucosa erythematous and swollen. + Frontal and maxillary sinus tenderness Oropharynx: Positive findings: mild oropharyngeal erythema. Neck: Supple, no adenopathy; thyroid symmetric, normal size, no bruits. Lungs: Cough, very diminished lung sounds. Heart: RRR without murmur, gallop, or rubs. No ectopy. Extremities: No deformities, edema, skin discoloration, clubbing or cyanosis. Good capillary refill. Peripheral Pulses: Normal, Capillary refill <2secs, strong peripheral pulses, Pulses palpable. Neurologic: Gait normal. Sensation grossly intact. ASSESSMENT/PLAN: 1. Sinobronchitis - ICD9: 473.9, 490, ICD10: J32.9, J40 (primary diagnosis) - Due to decreased lung sounds, will get a stat chest x-ray to rule out pneumonia. Will wait to order antibiotic until reviewed. - Instructed to continue supportive care at home - XR CHEST 2V FRONTAL/LAT - CODEINE 10 MG-GUAIFENESIN 100 MG/5 ML ORAL LIQUID 2. Hypokalemia - ICD9: 276.8, ICD10: E87.6 - COMPREHENSIVE METABOLIC PANEL Follow-up pending test results or sooner as needed. Discussed treatment plan and patient voices understanding. Patient's questions answered appropriately. Medications and potential side effects were discussed and patient voices understanding. Jenni Martínez APRN.CNP This note was partially generated using [email or web address] voice recognition system. Note was reviewed for accuracy. There may be minor misspellings or grammar miscues with [email or web address] voice recognition. documented in this encounterFairfield [facility] Center02-[facility]-2025 NoteHNO ID: [id number] Author: JENNI MARTÍNEZ APRN.CNP Service: ? Author Type: Nurse Practitioner Type: Progress Notes Filed: 12/11/2024 12:26 Note Text: This is a 44 year old female who presents today with: Patient presents with: Acute Visit: cough, congestion x 4 weeks HISTORY OF PRESENT ILLNESS: Tori Gray is a 44 year old female. Patient presents with: Acute Visit: cough, congestion x [address] Grimes here in the office for sinus congestion and cough. Symptoms started 1 month ago. She does have green mucus when blowing her nose and sometimes is coughing it up. Went to the ER on 12/01 due to vision being blurry, felt very fatigued, found out her potassium was 2.6. Was given potassium to drink and told to drink body armor drinks. Had Tessalon perrls from last bronchitis and they were not effective. Is having problems stopping her cough once it starts. Reports wheezing. Taking VaboRub, Dayquil, nyquil, mucinex, has been using CPAP. Denies fever or chills, nausea/vomiting, diarrhea/consitpation. PAST MEDICAL HISTORY: PAST MEDICAL HISTORY Diagnosis Date Acute cholecystitis Cholecystitis Anxiety 06/07/2014 Chronic back pain Kidney stones LETITIA treated with BiPAP Type 2 diabetes mellitus (HCC) PAST SURGICAL HISTORY Procedure Laterality Date DELIVERY ONLY 2006 , low cervical INSERT INTRAUTERINE DEVICE 10/19/08 mirena LAPAROSCOPY SURG CHOLECYSTECTOMY 2006 Cholecystectomy, lap (Rowena Monet) PAST SURGICAL HISTORY OF 2019 stent into kidney REMOVE IUD 07/13/2010 ALLERGIES Farxiga [Dapagliflozin], Lidocaine, Metformin, and Steroids [Betamethasone Dipropionate] MEDICATIONS Current Outpatient Medications Medication Sig albuterol HFA (VENTOLIN HFA) 90 mcg/actuation inhaler Inhale 2 Puffs as instructed every 4 hours as needed for wheezing/shortness of breath. tiZANidine (ZANAFLEX) 4 mg tablet Take 1 tablet by mouth every 8 hours as needed (muscle spasms). FLUoxetine (PROZAC) 20 mg capsule Take 1 capsule by mouth once daily. ondansetron (ZOFRAN) 4 mg tablet Take 1 tablet by mouth every 8 hours as needed for nausea/vomiting. semaglutide (OZEMPIC) 0.25 mg or 0.5 mg (2 mg/3 mL) pen Inject 0.5 mg subcutaneously one time a week. lisinopril (ZESTRIL) 10 mg tablet Take 1 tablet by mouth once daily. rimegepant (NURTEC ODT) 75 mg disintegrating tablet Take 1 tablet by mouth once daily as needed. topiramate (TOPAMAX) 100 mg tablet Take 1 tablet by mouth two times a day. gabapentin (NEURONTIN) 300 mg capsule Take 1 capsule by mouth two times a day for 180 days. naratriptan (AMERGE) 2.5 mg tablet Take 1 tablet (2.5 mg) by mouth as directed. at the onset of headache; if headache returns or does not fully resolve, the dose may be repeated after 4 hours; do not exceed five(5) mg in 24 hours. NO more than 10 doses a month. albuterol HFA (VENTOLIN HFA) 90 mcg/actuation inhaler Inhale 2 Puffs as instructed every 4 hours as needed for wheezing/shortness of breath. fexofenadine (ALMA ALLERGY) 180 mg tablet Take 1 tablet by mouth once daily. Ipratropium [place] (ATROVENT) 21 mcg (0.03 %) nasal spray Use 2 Sprays in the nose every 12 hours. omeprazole (PRILOSEC) 20 mg capsule Take 1 capsule by mouth daily before breakfast. 1/2 hr before meal. MAGNESIUM ORAL Take by mouth. meclizine (ANTIVERT) 25 mg tab Take 25 mg by mouth once daily. Takes two tabs in am BIPAP levonorgestrel (KYLEENA) 17.5 mcg/24 hrs (5 yrs) 19.5 mg IUD 1 Each by INTRAUTERINE route as directed. Herrick-3 Fatty Acids (FISH OIL) 500 mg cap Take 1 capsule by mouth once daily. blood sugar diagnostic (BLOOD GLUCOSE TEST) test strip Test blood sugar(s) 1 times daily. Dx: Type 2 DM - Controlled E11.9 Insulin: Yes Lancets lancets Test blood sugar(s) 1 times daily. Dx: Type 2 DM - Controlled E11.9 Insulin: No Lalqxwrr-Wh-Oom-Fe-FA tab Take 1 tablet by mouth once daily. No current facility-administered medications for this visit. FAMILY HISTORY Problem Relation Age of Onset Alcohol/Drug Mother Heart Father [place] Cancer Father PANCREATIC CANCER Diabetes Father Coronary Artery Disease Father Anxiety disorder Sister Depression Sister Depression Brother Cancer Maternal Grandmother LUNG CANCER Diabetes Maternal Grandfather Heart Paternal Grandmother TRIPLE BYPASS SURGERY Social History Tobacco Use Smoking status: Never Smokeless tobacco: Never Vaping Use Vaping status: Never Used Substance Use Topics Alcohol use: No Drug use: No REVIEW OF SYSTEMS GENERAL: No weight loss, malaise or fevers/chills HEENT: + Sinus Congestion NECK: Negative for lumps, goiter, pain and significant neck swelling RESPIRATORY: + Cough CARDIOVASCULAR: Negative for chest pain, leg swelling, orthopnea, or palpitations GI: No nausea, vomiting, or diarrhea/constipation. No hematochezia/melena. No heartburn or reflux symptoms. : No history o (more content not included)...[facility] 12-11-2024 Telephone encounter Note* Telephone Encounter - Brittney Meredith RN - 12/11/2024 8:17 AM EST Patient calling to make appt for evaluation of respiratory sx's that began approx 4 weeks ago. Pt states she feels she may have bronchitis or pneumonia. States she was at [facility] ER last month due to dizziness, vision changes and feeling unwell. States shewas told she had critically low potassium and was dehydrated. Given IV hydration at ER and potassium medication to take for 7 days which she completed. Pt did not follow up with PCP, as was advised by ER. Since then she has been experiencing respiratory sx's, including cough, nasal congestion, sinus pressure, intermittent wheezing, sore throat. Uses inhaler with effect. Denies current fever, SOB, chest pain, dizziness, vision changes, N/V/D, body aches, or weakness. Has tried OTC medication such as Dayquil and Nyquil-not very effective. Appt made with Aparna Martínez CNP for evaluation of respiratory sx's. Brittney Meredith RN [facility]02-07-2025 Miscellaneous Notes* Telephone Encounter - Brittney Meredith RN - 12/11/2024 8:17 AM EST Patient calling to make appt for evaluation of respiratory sx's that began approx 4 weeks ago. Pt states she feels she may have bronchitis or pneumonia. States she was at [facility] ER last month due to dizziness, vision changes and feeling unwell. States shewas told she had critically low potassium and was dehydrated. Given IV hydration at ER and potassium medication to take for 7 days which she completed. Pt did not follow up with PCP, as was advised by ER. Since then she has been experiencing respiratory sx's, including cough, nasal congestion, sinus pressure, intermittent wheezing, sore throat. Uses inhaler with effect. Denies current fever, SOB, chest pain, dizziness, vision changes, N/V/D, body aches, or weakness. Has tried OTC medication such as Dayquil and Nyquil-not very effective. Appt made with Aparna Martínez CNP for evaluation of respiratory sx's. Brittney Meredith RN documented in this encounterFair[facility]01-[facility]25 Telephone encounter Note * Telephone Encounter - Hailey Eric LPN - 11/25/2024 2:23 PM EST Prescription Refill Information The patient has been identified by name and date of : Yes Caregiver verified no other encounters exist for this prescription request: Yes Caregiver confirmed with patient/requestor that no other refills are due, in the near future, with this provider at this time: Yes The last office visit in the department: 10/19/24 Does the patient have a future office visit with this provider/department: Yes Requested Prescriptions Pending Prescriptions Disp Refills albuterol HFA (VENTOLIN HFA) 90 mcg/actuation inhaler 18 g 6 Sig: Inhale 2 Puffs as instructed every 4 hours as needed for wheezing/shortness of breath. Hailey Eric LPN November 25, 2024 2:23 PM [facility]01-22-2025 Miscellaneous Notes* Telephone Encounter - Hailey Eric LPN - 11/25/2024 2:23 PM EST Prescription Refill Information The patient has been identified by name and date of : Yes Caregiver verified no other encounters exist for this prescription request: Yes Caregiver confirmed with patient/requestor that no other refills are due, in the near future, with this provider at this time: Yes The last office visit in the department: 10/19/24 Does the patient have a future office visit with this provider/department: Yes Requested Prescriptions Pending Prescriptions Disp Refills albuterol HFA (VENTOLIN HFA) 90 mcg/actuation inhaler 18 g 6 Sig: Inhale 2 Puffs as instructed every 4 hours as needed for wheezing/shortness of breath. Hailey Eric LPN November 25, 2024 2:23 PM * Telephone Encounter - Stephanie Parsons - 11/25/2024 1:56 PM EST Patient's Rx , please expedite. Patient has been identified by name and date of : Yes Patient phones for refill(s): Requested Prescriptions Pending Prescriptions Disp Refills albuterol HFA (VENTOLIN HFA) 90 mcg/actuation inhaler 18 g 6 Sig: Inhale 2 Puffs as instructed every 4 hours as needed for wheezing/shortness of breath. Date of last office visit in primary care: 08/05/2024 Date of next office visit in primary care: Visit date not found Please advise. Thank you. Stephanie Parsons. documented in this encounterFair[facility] Center01-22-2025 Telephone encounter Note * Telephone Encounter - Stephanie Parsons - 11/25/2024 1:56 PM EST Patient's Rx , please expedite. Patient has been identified by name and date of : Yes Patient phones for refill(s): Requested Prescriptions Pending Prescriptions Disp Refills albuterol HFA (VENTOLIN HFA) 90 mcg/actuation inhaler 18 g 6 Sig: Inhale 2 Puffs as instructed every 4 hours as needed for wheezing/shortness of breath. Date of last office visit in primary care: 08/05/2024 Date of next office visit in primary care: Visit date not found Please advise. Thank you. Stephanie Parsons. [facility]01-20-2025 Telephone encounter Note* Telephone Encounter - Judith Napier - 11/23/2024 12:33 PM EST Prescription Refill Information The patient has been identified by name and date of : Yes Caregiver verified no other encounters exist for this prescription request: Yes Caregiver confirmed with patient/requestor that no other refills are due, in the near future, with this provider at this time: Yes The last office visit in the department: 10-19-24 Does the patient have a future office visit with this provider/department: Yes Requested Prescriptions Pending Prescriptions Disp Refills tiZANidine (ZANAFLEX) 4 mg tablet 60 tablet 0 Sig: Take 1 tablet by mouth every 8 hours as needed (muscle spasms). Patient states that 60 cost the same as what 20 cost so that is why she is asking for the 60. Judith Cueto November 23, 2024 12:34 PM [facility]01-20-2025 Miscellaneous Notes* Telephone Encounter - Judith Napier - 11/23/2024 12:33 PM EST Prescription Refill Information The patient has been identified by name and date of : Yes Caregiver verified no other encounters exist for this prescription request: Yes Caregiver confirmed with patient/requestor that no other refills are due, in the near future, with this provider at this time: Yes The last office visit in the department: 10-19-24 Does the patient have a future office visit with this provider/department: Yes Requested Prescriptions Pending Prescriptions Disp Refills tiZANidine (ZANAFLEX) 4 mg tablet 60 tablet 0 Sig: Take 1 tablet by mouth every 8 hours as needed (muscle spasms). Patient states that 60 cost the same as what 20 cost so that is why she is asking for the 60. Judith Cueto November 23, 2024 12:34 PM documented in this encounterFairfield Medical Center01-14-2025 NotePatient Outreach (FAMPWS) TORI GRAY ([id number]) 1980 F Date Time Provider Department 11/17/24 IVETTE GRIMES FAMPWS During your visit today, we recorded the following information about you: Allergies As of Date: 11/17/2024 Noted Allergy Reaction FARXIGA (DAPAGLIFLOZIN) 08/05/2024 8 - GI Upset LIDOCAINE 12/24/2019 4 - Hives METFORMIN 08/05/2024 8 - GI Upset STEROIDS (BETAMETHASONE DIPROPION*12/21/2021 4 - Hives Date Reviewed: 09/03/2024 Reviewed by: Fatuma Beckford PA-C - Fully Assessed Visit Diagnosis:Encounter for screening mammogram for breast cancer [Z12.31] Order(s):[facility] SCREENING W JAQUELIN [[id number]] Order #: [id number] FUTURE Prescriptions as of 12/18/2024 - potassium chloride (KLOR-CON) 20 mEq packet Take 20 mEq by mouth as needed. - codeine-guaiFENesin (ROBITUSSIN AC) 10-100 mg/5 mL syrup Take 10 mL by mouth three times a day as needed for cough for up to 7 days. - albuterol HFA (VENTOLIN HFA) 90 mcg/actuation inhaler Inhale 2 Puffs as instructed every 4 hours as needed for wheezing/shortness of breath. - tiZANidine (ZANAFLEX) 4 mg tablet Take 1 tablet by mouth every 8 hours as needed (muscle spasms). - FLUoxetine (PROZAC) 20 mg capsule Take 1 capsule by mouth once daily. - ondansetron (ZOFRAN) 4 mg tablet Take 1 tablet by mouth every 8 hours as needed for nausea/vomiting. - semaglutide (OZEMPIC) 0.25 mg or 0.5 mg (2 mg/3 mL) pen Inject 0.5 mg subcutaneously one time a week. - lisinopril (ZESTRIL) 10 mg tablet Take 1 tablet by mouth once daily. - rimegepant (NURTEC ODT) 75 mg disintegrating tablet Take 1 tablet by mouth once daily as needed. - topiramate (TOPAMAX) 100 mg tablet Take 1 tablet by mouth two times a day. - gabapentin (NEURONTIN) 300 mg capsule Take 1 capsule by mouth two times a day for 180 days. - naratriptan (AMERGE) 2.5 mg tablet Take 1 tablet (2.5 mg) by mouth as directed. at the onset of headache; if headache returns or does not fully resolve, the dose may be repeated after 4 hours; do not exceed five(5) mg in 24 hours. NO more than 10 doses a month. - albuterol HFA (VENTOLIN HFA) 90 mcg/actuation inhaler Inhale 2 Puffs as instructed every 4 hours as needed for wheezing/shortness of breath. - fexofenadine (ALMA ALLERGY) 180 mg tablet Take 1 tablet by mouth once daily. - Ipratropium [place] (ATROVENT) 21 mcg (0.03 %) nasal spray Use 2 Sprays in the nose every 12 hours. - omeprazole (PRILOSEC) 20 mg capsule Take 1 capsule by mouth daily before breakfast. 1/2 hr before meal. - MAGNESIUM ORAL Take by mouth. - meclizine (ANTIVERT) 25 mg tab Take 25 mg by mouth once daily. Takes two tabs in am - BIPAP - levonorgestrel (KYLEENA) 17.5 mcg/24 hrs (5 yrs) 19.5 mg IUD 1 Each by INTRAUTERINE route as directed. - Herrick-3 Fatty Acids (FISH OIL) 500 mg cap Take 1 capsule by mouth once daily. - blood sugar diagnostic (BLOOD GLUCOSE TEST) test strip Test blood sugar(s) 1 times daily. Dx: Type 2 DM - Controlled E11.9 Insulin: Yes - Lancets lancets Test blood sugar(s) 1 times daily. Dx: Type 2 DM - Controlled E11.9 Insulin: No - Orkkbhqg-Zd-Ytn-Fe-FA tab Take 1 tablet by mouth once daily. Meds Comments as of 03/01/2019: Percocet March 01, 2019 Stephanie Shainoff, RN Problem List As Of Date 11/17/2024 Noted Resolved SUPERVIS NORMAL 1ST PREG [Z34.00] 11/09/2005 07/02/2006 TRANS HYPERTEN-ANTEPART [O13.9] 06/19/2006 07/02/2006 KERATOSIS PILARIS////SKIN ANOMALY NEC [Q82.8] 03/26/2007 01/23/2010 Other Acne [L70.8] 03/26/2007 FOLLICULITIS///HAIR DISEASES NEC [L67.8, L73.8] 03/26/2007 01/23/2010 Lichenification and Lichen Simplex Chronicus [L*03/26/2007 01/23/2010 DERMATOFIBROMA///BENIGN KAILEY SKIN ARM [D23.60] 03/26/2007 01/23/2010 Contact Dermatitis and Other Eczema, due to Uns*03/26/2007 01/23/2010 SACROILIITIS [M46.1] 05/06/2009 01/23/2010 Routine general medical examination at a [facility]*01/23/2010 12/06/2012 Class: Chronic Routine gynecological examination [Z01.419] 01/23/2010 02/22/2014 Class: Chronic Morbid Obesity [E66.01] 01/23/2010 Lumbar Disc Disorder [M51.9] 02/16/2010 Routine general medical examination at a [facility]*12/06/2012 02/22/2014 Anxiety [F41.9] 06/07/2014 Type 2 diabetes mellitus with microalbuminuria,*07/04/2018 Fatty liver [K76.0] 07/21/2018 08/05/2024 LETITIA (obstructive sleep apnea) [G47.33] 07/21/2018 Microalbuminuria [R80.9] 09/30/2018 09/04/2022 Obesity, Class III, BMI >= 40 [E66.01] 11/26/2019 09/04/2022 Prolonged Q-T interval on ECG [R94.31] 03/31/2020 Calculus of kidney [N20.0] 09/04/2022 Chest pain [R07.9] 09/04/2022 09/04/2022 Contusion of knee [S80.00XA] 09/04/2022 09/04/2022 Essential (primary) hypertension [I10] 08/16/2022 Fall [W19.XXXA] 09/04/2022 09/04/2022 Headache [R51] 09/04/2022 09/04/2022 Herniation of lumbar intervertebral disc with r*06/10/2017 History of type 2 diabetes m (more content not included)...[facility]12-23-2024 Telephone encounter Note* Telephone Encounter - Priscila France RN - 10/26/2024 7:53 PM EST The patient has been identified by name and date of : Yes Caregiver verified no other encounters exist for this prescription request: Yes Caregiver confirmed with patient/requestor that no other refills are due, in the near future, with this provider at this time: Yes The last office visit in the department: 08/05/24 Does the patient have a future office visit with this provider/department: No Visit date not found Requested Prescriptions Pending Prescriptions Disp Refills FLUoxetine (PROZAC) 20 mg capsule 90 capsule 0 Sig: Take 1 capsule by mouth once daily. Priscila France RN October 26, 2024 7:53 PM [facility]12-23-2024 Miscellaneous Notes* Telephone Encounter - Priscila France RN - 10/26/2024 7:53 PM EST The patient has been identified by name and date of : Yes Caregiver verified no other encounters exist for this prescription request: Yes Caregiver confirmed with patient/requestor that no other refills are due, in the near future, with this provider at this time: Yes The last office visit in the department: 08/05/24 Does the patient have a future office visit with this provider/department: No Visit date not found Requested Prescriptions Pending Prescriptions Disp Refills FLUoxetine (PROZAC) 20 mg capsule 90 capsule 0 Sig: Take 1 capsule by mouth once daily. Priscila France RN October 26, 2024 7:53 PM documented in this encounterFairfield Medical Center12-16-2024 History of Present illness Narrative* Ivette Grimes MD - 10/19/2024 5:20 PM EST Patient presents with: Acute Visit HPI:This visit is a virtual encounter. It required patient-provider interaction for the medical decision making as documented below. Patient has elected to have a visit through distance medicine I have communicated my name and active licensure. The patient's identity and physical location wereverified at the time of this visit. Either the patient or their legal front office representative has been informed of the risks and benefits of -- and alternatives to -- treatment through a remote evaluation andconsents to proceed with the evaluation remotely. Was initially worried about a kidney stone and was interested in getting a kub done. Has a hx of renal stone. Is asymptomatic. No urinary symptoms. She wonders at this point after much thought is a musculoskeletal injury. Requests refill on tizanadine and zofran. Recently had a fall and had negative xrays. MEDICATIONS: Current Outpatient Medications Medication Sig semaglutide (OZEMPIC) 0.25 mg or 0.5 mg (2 mg/3 mL) pen Inject 0.5 mg subcutaneously one time a week. lisinopril (ZESTRIL) 10 mg tablet Take 1 tablet by mouth once daily. rimegepant (NURTEC ODT) 75 mg disintegrating tablet Take 1 tablet by mouth once daily as needed. FLUoxetine (PROZAC) 20 mg capsule Take 1 capsule by mouth once daily. topiramate (TOPAMAX) 100 mg tablet Take 1 tablet by mouth two times a day. gabapentin (NEURONTIN) 300 mg capsule Take 1 capsule by mouth two times a day for 180 days. naratriptan (AMERGE) 2.5 mg tablet Take 1 tablet (2.5 mg) by mouth as directed. at the onset of headache; if headache returns or does not fully resolve, the dose may be repeated after 4 hours; do notexceed five(5) mg in 24 hours. NO more than 10 doses a month. albuterol HFA (VENTOLIN HFA) 90 mcg/actuation inhaler Inhale 2 Puffs as instructed every 4 hours asneeded for wheezing/shortness of breath. fexofenadine (ALMA ALLERGY) 180 mg tablet Take 1 tablet by mouth once daily. albuterol HFA (VENTOLIN HFA) 90 mcg/actuation inhaler Inhale 2 Puffs as instructed every 4 hours asneeded for wheezing/shortness of breath. Ipratropium [place] (ATROVENT) 21 mcg (0.03 %) nasal spray Use 2 Sprays in the nose every 12 hours. omeprazole (PRILOSEC) 20 mg capsule Take 1 capsule by mouth daily before breakfast. 1/2 hr before meal. MAGNESIUM ORAL Take by mouth. meclizine (ANTIVERT) 25 mg tab Take 25 mg by mouth once daily. Takes two tabs in am BIPAP levonorgestrel (KYLEENA) 17.5 mcg/24 hrs (5 yrs) 19.5 mg IUD 1 Each by INTRAUTERINE route as directed. Herrick-3 Fatty Acids (FISH OIL) 500 mg cap Take 1 capsule by mouth once daily. blood sugar diagnostic (BLOOD GLUCOSE TEST) test strip Test blood sugar(s) 1 times daily. Dx: Type 2 DM - Controlled E11.9 Insulin: Yes Lancets lancets Test blood sugar(s) 1 times daily. Dx: Type 2 DM - Controlled E11.9 Insulin: No Jqclxfdn-Wz-Ubo-Fe-FA tab Take 1 tablet by mouth once daily. No current facility-administered medications for this visit. ALLERGIES: ALLERGIES Allergen Reactions Farxiga [Dapagliflo* GI Upset Lidocaine Hives Metformin GI Upset Steroids [Betametha* Hives PAST MEDICAL HISTORY Diagnosis Date Acute cholecystitis Cholecystitis Anxiety 06/07/2014 Chronic back pain Kidney stones LETITIA treated with BiPAP Type 2 diabetes mellitus (HCC) PAST SURGICAL HISTORY Procedure Laterality Date DELIVERY ONLY 2006 , low cervical INSERT INTRAUTERINE DEVICE 10/19/08 mirena LAPAROSCOPY SURG CHOLECYSTECTOMY 2006 Cholecystectomy, lap (Rowena Monet) PAST SURGICAL HISTORY OF 2019 stent into kidney REMOVE IUD 07/13/2010 FAMILY HISTORY Problem Relation Age of Onset Alcohol/Drug Mother Heart Father [place] Cancer Father PANCREATIC CANCER Diabetes Father Coronary Artery Disease Father Anxiety disorder Sister Depression Sister Depression Brother Cancer Maternal Grandmother LUNG CANCER Diabetes Maternal Grandfather Heart Paternal Grandmother TRIPLE BYPASS SURGERY Social History Tobacco Use Smoking status: Never Smokeless tobacco: Never Vaping Use Vaping status: Never Used Substance Use Topics Alcohol use: No Drug use: No Reviewed current medications, allergies, past medical history, surgical history, family history andsocial history today. REVIEW OF SYSTEMS All other reviewed and negative other than HPI. VITALS: Could not assess Last 4 Encounter Wt Readings: Date: Wt: 09/03/2024 126.9 kg (279 lb 10.5 oz) 08/05/2024 131.5 kg (289 lb 14.5 oz) 07/03/2024 128.8 kg (284 lb) 04/02/2024 126 kg (277 lb 12.5 oz) PHYSICAL EXAMINATION: Patient is alert and oriented during visit. Answers appropriately. Breathing comfortably.. chest rise normal. No audible wheeze. No pallor. ASSESSMENT/PLAN: 1. Flank pain - ICD9: 789.09, ICD10: R10.9 - Discussed risks and benefits of new medication with the patient. Advised them to call if any sideeffects or questions. Red flags for re-assessment reviewed with patient in detail. Call if symptoms worsen at all or if not better in one to two weeks Reviewed diagnosis and treatment options in detail. Questions were answered. Patient expressed understanding of treatment plan. - TIZANIDINE 4 MG TABLET - ONDANSETRON HCL 4 MG TABLET Ivette Grimes MD documented in this encounterFairfield Medical Center12-16-2024 NoteHNO ID: [id number] Author: IVETTE GRIMES MD Service: ? Author Type: Physician Type: Progress Notes Filed: 10/19/2024 17:37 Note Text: Patient presents with: Acute Visit HPI:This visit is a virtual encounter. It required patient-provider interaction for the medical decision making as documented below. Patient has elected to have a visit through distance medicine I have communicated my name and active licensure. The patient's identity and physical location were verified at the time of this visit. Either the patient or their legal front office representative has been informed of the risks and benefits of -- and alternatives to -- treatment through a remote evaluation and consents to proceed with the evaluation remotely. Was initially worried about a kidney stone and was interested in getting a kub done. Has a hx of renal stone. Is asymptomatic. No urinary symptoms. She wonders at this point after much thought is a musculoskeletal injury. Requests refill on tizanadine and zofran. Recently had a fall and had negative xrays. MEDICATIONS: Current Outpatient Medications Medication Sig semaglutide (OZEMPIC) 0.25 mg or 0.5 mg (2 mg/3 mL) pen Inject 0.5 mg subcutaneously one time a week. lisinopril (ZESTRIL) 10 mg tablet Take 1 tablet by mouth once daily. rimegepant (NURTEC ODT) 75 mg disintegrating tablet Take 1 tablet by mouth once daily as needed. FLUoxetine (PROZAC) 20 mg capsule Take 1 capsule by mouth once daily. topiramate (TOPAMAX) 100 mg tablet Take 1 tablet by mouth two times a day. gabapentin (NEURONTIN) 300 mg capsule Take 1 capsule by mouth two times a day for 180 days. naratriptan (AMERGE) 2.5 mg tablet Take 1 tablet (2.5 mg) by mouth as directed. at the onset of headache; if headache returns or does not fully resolve, the dose may be repeated after 4 hours; do not exceed five(5) mg in 24 hours. NO more than 10 doses a month. albuterol HFA (VENTOLIN HFA) 90 mcg/actuation inhaler Inhale 2 Puffs as instructed every 4 hours as needed for wheezing/shortness of breath. fexofenadine (LAMA ALLERGY) 180 mg tablet Take 1 tablet by mouth once daily. albuterol HFA (VENTOLIN HFA) 90 mcg/actuation inhaler Inhale 2 Puffs as instructed every 4 hours as needed for wheezing/shortness of breath. Ipratropium [place] (ATROVENT) 21 mcg (0.03 %) nasal spray Use 2 Sprays in the nose every 12 hours. omeprazole (PRILOSEC) 20 mg capsule Take 1 capsule by mouth daily before breakfast. 1/2 hr before meal. MAGNESIUM ORAL Take by mouth. meclizine (ANTIVERT) 25 mg tab Take 25 mg by mouth once daily. Takes two tabs in am BIPAP levonorgestrel (KYLEENA) 17.5 mcg/24 hrs (5 yrs) 19.5 mg IUD 1 Each by INTRAUTERINE route as directed. Herrick-3 Fatty Acids (FISH OIL) 500 mg cap Take 1 capsule by mouth once daily. blood sugar diagnostic (BLOOD GLUCOSE TEST) test strip Test blood sugar(s) 1 times daily. Dx: Type 2 DM - Controlled E11.9 Insulin: Yes Lancets lancets Test blood sugar(s) 1 times daily. Dx: Type 2 DM - Controlled E11.9 Insulin: No Cafhtnnh-Nf-Kpa-Fe-FA tab Take 1 tablet by mouth once daily. No current facility-administered medications for this visit. ALLERGIES: ALLERGIES Allergen Reactions Farxiga [Dapagliflo* GI Upset Lidocaine Hives Metformin GI Upset Steroids [Betametha* Hives PAST MEDICAL HISTORY Diagnosis Date Acute cholecystitis Cholecystitis Anxiety 06/07/2014 Chronic back pain Kidney stones LETITIA treated with BiPAP Type 2 diabetes mellitus (HCC) PAST SURGICAL HISTORY Procedure Laterality Date DELIVERY ONLY 2005 , low cervical INSERT INTRAUTERINE DEVICE 10/19/08 mirena LAPAROSCOPY SURG CHOLECYSTECTOMY 2005 Cholecystectomy, lap (Rowena Monet) PAST SURGICAL HISTORY OF 2019 stent into kidney REMOVE IUD 07/13/2010 FAMILY HISTORY Problem Relation Age of Onset Alcohol/Drug Mother Heart Father [place] Cancer Father PANCREATIC CANCER Diabetes Father Coronary Artery Disease Father Anxiety disorder Sister Depression Sister Depression Brother Cancer Maternal Grandmother LUNG CANCER Diabetes Maternal Grandfather Heart Paternal Grandmother TRIPLE BYPASS SURGERY Social History Tobacco Use Smoking status: Never Smokeless tobacco: Never Vaping Use Vaping status: Never Used Substance Use Topics Alcohol use: No Drug use: No Reviewed current medications, allergies, past medical history, surgical history, family history and social history today. REVIEW OF SYSTEMS All other reviewed and negative other than HPI. VITALS: Could not assess Last 4 Encounter Wt Readings: Date: Wt: 09/03/2024 126.9 kg (279 lb 10.5 oz) 08/05/2024 131.5 kg (289 lb 14.5 oz) 07/03/2024 128.8 kg (284 lb) 04/02/2024 126 kg (277 lb 12.5 oz) PHYSICAL EXAMINATION: Patient is alert and oriented during visit. Answers appropriately. Breathing comfortably.. chest rise normal. No audible wheeze. No pallor. ASSESSM (more content not included)...[facility]12-16-2024 Evaluation note* Diagnosis Onset Date Resolution Status Admit Date Segmental and somatic dysfunction of lumbar region acute Oct emb2023 8:57am Segmental and somatic dysfunction of pelvic region acute Oct 8:57am Segmental and somatic dysfunction of thoracic region acute October 19, 8:57am Disc displacement, lumbar chronic October 19, 2024 8:57am [facility] Work Phone: 1(243) 520-680811-21-2024 History of Present illness Narrative* Ivette Grimes MD - 09/24/2024 10:40 AM EST Patient presents with: Acute Visit HPI:This visit is a virtual encounter. It required patient-provider interaction for the medical decision making as documented below. Patient has elected to have a visit through distance medicine I have communicated my name and active licensure. The patient's identity and physical location wereverified at the time of this visit. Either the patient or their legal front office representative has been informed of the risks and benefits of -- and alternatives to -- treatment through a remote evaluation andconsents to proceed with the evaluation remotely. Complains of not sleeping well. Had wondered it it was related to ozempic. Does use her bipap. Uses tizanadine at hs. Usually sleeps well. No current stress. Not anxious or depressed. Having more vivid dreams. No increased caffeine. Sugars are increased recently [id number]'s. Not coming down as much as it used to. May be urinating more. Wonders if she needs to increase her ozempic No gi effects. Complains of urinary issues. Has some dysuria. Started a few days ago. No fever or chills. No nausea. No discharge or stomach pain. No new back pain. Did home test strip that indicates possible uti. MEDICATIONS: Current Outpatient Medications Medication Sig lisinopril (ZESTRIL) 10 mg tablet Take 1 tablet by mouth once daily. rimegepant (NURTEC ODT) 75 mg disintegrating tablet Take 1 tablet by mouth once daily as needed. semaglutide (OZEMPIC) 0.25 mg or 0.5 mg (2 mg/3 mL) pen Inject 0.25 mg subcutaneously one time a week. FLUoxetine (PROZAC) 20 mg capsule Take 1 capsule by mouth once daily. topiramate (TOPAMAX) 100 mg tablet Take 1 tablet by mouth two times a day. gabapentin (NEURONTIN) 300 mg capsule Take 1 capsule by mouth two times a day for 180 days. naratriptan (AMERGE) 2.5 mg tablet Take 1 tablet (2.5 mg) by mouth as directed. at the onset of headache; if headache returns or does not fully resolve, the dose may be repeated after 4 hours; do notexceed five(5) mg in 24 hours. NO more than 10 doses a month. albuterol HFA (VENTOLIN HFA) 90 mcg/actuation inhaler Inhale 2 Puffs as instructed every 4 hours asneeded for wheezing/shortness of breath. fexofenadine (ALMA ALLERGY) 180 mg tablet Take 1 tablet by mouth once daily. albuterol HFA (VENTOLIN HFA) 90 mcg/actuation inhaler Inhale 2 Puffs as instructed every 4 hours asneeded for wheezing/shortness of breath. Ipratropium [place] (ATROVENT) 21 mcg (0.03 %) nasal spray Use 2 Sprays in the nose every 12 hours. omeprazole (PRILOSEC) 20 mg capsule Take 1 capsule by mouth daily before breakfast. 1/2 hr before meal. MAGNESIUM ORAL Take by mouth. meclizine (ANTIVERT) 25 mg tab Take 25 mg by mouth once daily. Takes two tabs in am BIPAP levonorgestrel (KYLEENA) 17.5 mcg/24 hrs (5 yrs) 19.5 mg IUD 1 Each by INTRAUTERINE route as directed. Herrick-3 Fatty Acids (FISH OIL) 500 mg cap Take 1 capsule by mouth once daily. blood sugar diagnostic (BLOOD GLUCOSE TEST) test strip Test blood sugar(s) 1 times daily. Dx: Type 2 DM - Controlled E11.9 Insulin: Yes Lancets lancets Test blood sugar(s) 1 times daily. Dx: Type 2 DM - Controlled E11.9 Insulin: No Xrvmlopa-Gj-Biv-Fe-FA tab Take 1 tablet by mouth once daily. No current facility-administered medications for this visit. ALLERGIES: ALLERGIES Allergen Reactions Farxiga [Dapagliflo* GI Upset Lidocaine Hives Metformin GI Upset Steroids [Betametha* Hives PAST MEDICAL HISTORY Diagnosis Date Acute cholecystitis Cholecystitis Anxiety 06/07/2014 Chronic back pain Kidney stones LETITIA treated with BiPAP Type 2 diabetes mellitus (HCC) PAST SURGICAL HISTORY Procedure Laterality Date DELIVERY ONLY 2006 , low cervical INSERT INTRAUTERINE DEVICE 10/19/08 mirena LAPAROSCOPY SURG CHOLECYSTECTOMY 2006 Cholecystectomy, lap (Rowena Monet) PAST SURGICAL HISTORY OF 2019 stent into kidney REMOVE IUD 07/13/2010 FAMILY HISTORY Problem Relation Age of Onset Alcohol/Drug Mother Heart Father [place] Cancer Father PANCREATIC CANCER Diabetes Father Coronary Artery Disease Father Anxiety disorder Sister Depression Sister Depression Brother Cancer Maternal Grandmother LUNG CANCER Diabetes Maternal Grandfather Heart Paternal Grandmother TRIPLE BYPASS SURGERY Social History Tobacco Use Smoking status: Never Smokeless tobacco: Never Vaping Use Vaping status: Never Used Substance Use Topics Alcohol use: No Drug use: No Reviewed current medications, allergies, past medical history, surgical history, family history andsocial history today. REVIEW OF SYSTEMS All other reviewed and negative other than HPI. VITALS: Could not assess Last 4 Encounter Wt Readings: Date: Wt: 09/03/2024 126.9 kg (279 lb 10.5 oz) 08/05/2024 131.5 kg (289 lb 14.5 oz) 07/03/2024 128.8 kg (284 lb) 04/02/2024 126 kg (277 lb 12.5 oz) PHYSICAL EXAMINATION: Patient is alert and oriented during visit. Answers appropriately. Breathing comfortably.. chest rise normal. No audible wheeze. No pallor. ASSESSMENT/PLAN: 1. Dysuria - ICD9: 788.1, ICD10: R30.0 (primary diagnosis) - Discussed risks and benefits of new medication with the patient. Advised them to call if any sideeffects or questions. Red flags for re-assessment reviewed with patient in detail. Call if symptoms worsen at all or if not better in one to two weeks Reviewed diagnosis and treatment options in detail. Questions were answered. Patient expressed understanding of treatment plan. - NITROFURANTOIN MONOHYDRATE & MACROCRYSTAL 100 MG ORAL CAP 2. Type 2 diabetes mellitus with microalbuminuria, with long-term current use of insulin (HCC) - ICD9: 250.40, 791.0, V58.67, ICD10: E11.29, R80.9, Z79.4 - increase meds - SEMAGLUTIDE 0.25 MG OR 0.5 MG (2 MG/3 ML) SUBCUTANEOUS PEN INJECTOR 3. Primary insomnia - ICD9: 307.42, ICD10: F51.01 - does not feel it is her sleep apnea. Call if symptoms worsen at all or if not better in one to two weeks Ivette Grimes MD documented in this encounter[facility]11-[facility]24 NoteHNO ID: [id number] Author: IVETTE GRIMES MD Service: ? Author Type: Physician Type: Progress Notes Filed: 09/24/2024 12:21 Note Text: Patient presents with: Acute Visit HPI:This visit is a virtual encounter. It required patient-provider interaction for the medical decision making as documented below. Patient has elected to have a visit through distance medicine I have communicated my name and active licensure. The patient's identity and physical location were verified at the time of this visit. Either the patient or their legal front office representative has been informed of the risks and benefits of -- and alternatives to -- treatment through a remote evaluation and consents to proceed with the evaluation remotely. Complains of not sleeping well. Had wondered it it was related to ozempic. Does use her bipap. Uses tizanadine at hs. Usually sleeps well. No current stress. Not anxious or depressed. Having more vivid dreams. No increased caffeine. Sugars are increased recently 920=969's. Not coming down as much as it used to. May be urinating more. Wonders if she needs to increase her ozempic No gi effects. Complains of urinary issues. Has some dysuria. Started a few days ago. No fever or chills. No nausea. No discharge or stomach pain. No new back pain. Did home test strip that indicates possible uti. MEDICATIONS: Current Outpatient Medications Medication Sig lisinopril (ZESTRIL) 10 mg tablet Take 1 tablet by mouth once daily. rimegepant (NURTEC ODT) 75 mg disintegrating tablet Take 1 tablet by mouth once daily as needed. semaglutide (OZEMPIC) 0.25 mg or 0.5 mg (2 mg/3 mL) pen Inject 0.25 mg subcutaneously one time a week. FLUoxetine (PROZAC) 20 mg capsule Take 1 capsule by mouth once daily. topiramate (TOPAMAX) 100 mg tablet Take 1 tablet by mouth two times a day. gabapentin (NEURONTIN) 300 mg capsule Take 1 capsule by mouth two times a day for 180 days. naratriptan (AMERGE) 2.5 mg tablet Take 1 tablet (2.5 mg) by mouth as directed. at the onset of headache; if headache returns or does not fully resolve, the dose may be repeated after 4 hours; do not exceed five(5) mg in 24 hours. NO more than 10 doses a month. albuterol HFA (VENTOLIN HFA) 90 mcg/actuation inhaler Inhale 2 Puffs as instructed every 4 hours as needed for wheezing/shortness of breath. fexofenadine (ALMA ALLERGY) 180 mg tablet Take 1 tablet by mouth once daily. albuterol HFA (VENTOLIN HFA) 90 mcg/actuation inhaler Inhale 2 Puffs as instructed every 4 hours as needed for wheezing/shortness of breath. Ipratropium [place] (ATROVENT) 21 mcg (0.03 %) nasal spray Use 2 Sprays in the nose every 12 hours. omeprazole (PRILOSEC) 20 mg capsule Take 1 capsule by mouth daily before breakfast. 1/2 hr before meal. MAGNESIUM ORAL Take by mouth. meclizine (ANTIVERT) 25 mg tab Take 25 mg by mouth once daily. Takes two tabs in am BIPAP levonorgestrel (KYLEENA) 17.5 mcg/24 hrs (5 yrs) 19.5 mg IUD 1 Each by INTRAUTERINE route as directed. Herrick-3 Fatty Acids (FISH OIL) 500 mg cap Take 1 capsule by mouth once daily. blood sugar diagnostic (BLOOD GLUCOSE TEST) test strip Test blood sugar(s) 1 times daily. Dx: Type 2 DM - Controlled E11.9 Insulin: Yes Lancets lancets Test blood sugar(s) 1 times daily. Dx: Type 2 DM - Controlled E11.9 Insulin: No Oyzkpnlh-Lt-Itx-Fe-FA tab Take 1 tablet by mouth once daily. No current facility-administered medications for this visit. ALLERGIES: ALLERGIES Allergen Reactions Farxiga [Dapagliflo* GI Upset Lidocaine Hives Metformin GI Upset Steroids [Betametha* Hives PAST MEDICAL HISTORY Diagnosis Date Acute cholecystitis Cholecystitis Anxiety 06/07/2014 Chronic back pain Kidney stones LETITIA treated with BiPAP Type 2 diabetes mellitus (HCC) PAST SURGICAL HISTORY Procedure Laterality Date DELIVERY ONLY 2006 , low cervical INSERT INTRAUTERINE DEVICE 10/19/08 mirena LAPAROSCOPY SURG CHOLECYSTECTOMY 2006 Cholecystectomy, lap (Rowena Monet) PAST SURGICAL HISTORY OF 2019 stent into kidney REMOVE IUD 07/13/2010 FAMILY HISTORY Problem Relation Age of Onset Alcohol/Drug Mother Heart Father [place] Cancer Father PANCREATIC CANCER Diabetes Father Coronary Artery Disease Father Anxiety disorder Sister Depression Sister Depression Brother Cancer Maternal Grandmother LUNG CANCER Diabetes Maternal Grandfather Heart Paternal Grandmother TRIPLE BYPASS SURGERY Social History Tobacco Use Smoking status: Never Smokeless tobacco: Never Vaping Use Vaping status: Never Used Substance Use Topics Alcohol use: No Drug use: No Reviewed current medications, allergies, past medical history, surgical history, family history and social history today. REVIEW OF SYSTEMS All other reviewed and negative other than HPI. VITALS: Could not assess Last 4 Encounter Wt Readings: Date: Wt: (more content not included)...[facility]10-31-2024 Instructions* Patient Instructions* Fatuma Beckford PA-C - 09/03/2024 12:49 PM EDT Green light therapy Botox Home Instruction: Instruction after botox injection: - If you have any pain or swelling use ice, 20 min on and 20 min off. Do not rub or massage the area for 48 hrs. - If you have any neck stiffness, you may use heat and do stretching exercises. - This should improve over the next 5 days. - If it does not, call our office for further instructions. documented in this encounterFairfield [facility] Center10-31-2024 NoteHNO ID: [id number] Author: FATUMA BECKFORD PA-C Service: ? Author Type: Physician Marker Assembler Type: Progress Notes Filed: 09/03/2024 13:30 Note Text: Follow-Up Onabotulinum Toxin A (BotoxTM) for Migraine Indication: Chronic Intractable Migraine Treatment #: 6 Referral Expiration: 11/03/2024 Prior to the initiation of the FIRST treatment with Onabotulinum Toxin A, the patient reported the following average headache frequency over the past 3 MONTHS: Number of moderate-severe migraine days/month: 30 (daily) Number of mild migraine days/month: 0 Number of headache free days/month: 0 (0 headache-free hours) Migraine severity: 08/13 After treatment with Onabotulinum Toxin A: Number of moderate-severe migraine days/month: 0 Number of mild migraine days/month: 0 Number of headache free days/month: 30 (720 headache-free hours) Migraine severity: 0/10 Patient reduction in overall migraine days: Yes Patient reduction in moderate-severe migraine days: Yes Patient reduction of headache hours by 100 hours or more: Yes (reduction of 720 hours) Individual has obtained clinical benefit deemed significant by individual or prescriber (Y/N): Yes Patient's quality of life and ability to perform ADLs has improved (Y/N): Yes Side effects: none Wearing off: No The patient has been assessed for disorders which could contribute to breathing or swallowing difficulty, and there is no contraindication with PREEMPT Botox. There is no documented allergic reaction/hypersensitivity to any botulinum toxin and there is no active infection at proposed injection site. HEADACHE SCORES: 11/14/2022 02/13/2023 07/14/2023 VAHE - 2/7 SCORES VAHE-2 Score 1 2 4 VAHE-7 Score 2 6 12 07/03/2024 06/03/2024 12/06/2023 PHQ-9 Score 1 5 3 LMP (LMP Unknown) Patient name: Tori Gray : 1980 ALLERGIES Allergen Reactions Farxiga [Dapagliflo* GI Upset Lidocaine Hives Metformin GI Upset Steroids [Betametha* Hives UNIVERSAL PROTOCOL / SAFETY CHECKLIST Procedure: Onabotulinum toxin A for migraine Informed Consent Consent Obtained: Written [place] Protocol A moment to CARE was completed SIGN IN Personnel directly involved with the procedure wore the appropriate PPE Special Equipment: N/A Patient/Surrogate Stated/Verified: Patient name, Date of , Relevant allergies and Intended procedure TIME OUT Intended patient and procedure match the source document(s) Consent documented and matches the intended procedure No relevant labs, photos, and/or imaging studies were applicable for review. No correct side/site applicable for marking and visibility. No medications required for procedure. No fire risk assessment and interventions applicable. No implant(s) inserted. SIGN OUT No specimen collected. No instruments, equipment or retained foreign bodies applicable. 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 Patient continuing to take topiramate and Nurtec 75mg for onset of headache, works well. Will return in 12 weeks for repeat botox therapy. Reauthorization needed. Notes that the botox has lasted a lot longer, recently switched jobs and feels that may be increasing headaches. Only had 1 every few weeks, mild. Estimates 5 migraines since march. [facility] of Present illness Narrative* Fatuma Beckford PA-C - 09/03/2024 12:47 PM EDT Follow-Up Onabotulinum Toxin A (BotoxTM) for Migraine Indication: Chronic Intractable Migraine Treatment #: 6 Referral Expiration: 11/03/2024 Prior to the initiation of the FIRST treatment with Onabotulinum Toxin A, the patient reported the following average headache frequency over the past 3 MONTHS: Number of moderate-severe migraine days/month: 30 (daily) Number of mild migraine days/month: 0 Number of headache free days/month: 0 (0 headache-free hours) Migraine severity: 10/10 After treatment with Onabotulinum Toxin A: Number of moderate-severe migraine days/month: 0 Number of mild migraine days/month: 0 Number of headache free days/month: 30 (720 headache-free hours) Migraine severity: 0/10 Patient reduction in overall migraine days: Yes Patient reduction in moderate-severe migraine days: Yes Patient reduction of headache hours by 100 hours or more: Yes (reduction of 720 hours) Individual has obtained clinical benefit deemed significant by individual or prescriber (Y/N): Yes Patient's quality of life and ability to perform ADLs has improved (Y/N): Yes Side effects: none Wearing off: No The patient has been assessed for disorders which could contribute to breathing or swallowing difficulty, and there is no contraindication with PREEMPT Botox. There is no documented allergic reaction/hypersensitivity to any botulinum toxin and there is no active infection at proposed injection site. HEADACHE SCORES: 11/14/2022 02/13/2023 07/14/2023 VAHE - 2/7 SCORES VAHE-2 Score 1 2 4 VAHE-7 Score 2 6 12 07/03/2024 06/03/2024 12/06/2023 PHQ-9 Score 1 5 3 LMP (LMP Unknown) Patient name: Tori Gray : 1980 ALLERGIES Allergen Reactions Farxiga [Dapagliflo* GI Upset Lidocaine Hives Metformin GI Upset Steroids [Betametha* Hives UNIVERSAL PROTOCOL / SAFETY CHECKLIST Procedure: Onabotulinum toxin A for migraine Informed Consent Consent Obtained: Written [place] Protocol A moment to CARE was completed SIGN IN Personnel directly involved with the procedure wore the appropriate PPE Special Equipment: N/A Patient/Surrogate Stated/Verified: Patient name, Date of , Relevant allergies and Intended procedure TIME OUT Intended patient and procedure match the source document(s) Consent documented and matches the intended procedure No relevant labs, photos, and/or imaging studies were applicable for review. No correct side/site applicable for marking and visibility. No medications required for procedure. No fire risk assessment and interventions applicable. No implant(s) inserted. SIGN OUT No specimen collected. No instruments, equipment or retained foreign bodies applicable. 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 Patient continuing to take topiramate and Nurtec 75mg for onset of headache, works well. Will return in 12 weeks for repeat botox therapy. Reauthorization needed. Notes that the botox has lasted a lot longer, recently switched jobs and feels that may be increasing headaches. Only had 1 every few weeks, mild. Estimates 5 migraines since march. Fatuma Beckford PA-C documented in this encounterFair[facility]10-29-2024 Telephone encounter Note * Telephone Encounter - Rebecca Baker - 09/01/2024 4:08 PM EDT Tori was Ok'ed to get her botox appointment moved into a new patient time due to frequent rescheduling of this visit. She is now scheduled for 09/03. She has also requested a refill of her Nurtec ODT medication. Please adviseRebecca [facility]10-29-[facility] Miscellaneous Notes* Telephone Encounter - Rebecca Baker - 09/01/2024 4:08 PM EDT Tori was Ok'ed to get her botox appointment moved into a new patient time due to frequent rescheduling of this visit. She is now scheduled for 09/03. She has also requested a refill of her Nurtec ODT medication. Please adviseRebecca documented in this encounterFairfield [facility] Center10-29-2024 Telephone encounter Note * Telephone Encounter - Rebecca Baker - 09/01/2024 4:01 PM EDT Fatuma Matute Ok'ed the use of a new patient time slot for Lorilie due to this being her third reschedule for botox. I have tentatively scheduled her, but left the October botox scheduled in case it is still needed. Voicemail left for patient and will try again to ensure she is OK with this date and time. Rebecca Baker [facility]10-[facility] Miscellaneous Notes* Telephone Encounter - Rebecca Baker - 09/01/2024 4:01 PM EDT Fatuma Matute Ok'ed the use of a new patient time slot for Lorilie due to this being her third reschedule for botox. I have tentatively scheduled her, but left the October botox scheduled in case it is still needed. Voicemail left for patient and will try again to ensure she is OK with this date and time. Rebecca Baker * Telephone Encounter - Tala Wilson - 09/01/2024 3:54 PM EDT Patient read fernt * Telephone Encounter - Steph Nieto - 09/01/2024 3:30 PM EDT 09/10 [facility] appt rescheduled to 10/08 and put on wait list. Provider will be out of office. 1st attempt to notify pt, sent MC message. documented in this encounterFairfield Medical Center10-29-2024 Telephone encounter Note * Telephone Encounter - Tala Wilson - 09/01/2024 3:54 PM EDT Patient read mychart [facility] Telephone encounter Note* Telephone Encounter - Steph Nieto - 09/01/2024 3:30 PM EDT 09/10 [facility] appt rescheduled to 10/08 and put on wait list. Provider will be out of office. 1st attempt to notify pt, sent MC message. [facility] Tele[facility] encounter Note* Telephone Encounter - Steph Nieto - 08/11/2024 3:58 PM EDT Pt read MC message. [facility] Miscellaneous Notes* Telephone Encounter - Steph Nieto - 08/11/2024 3:58 PM EDT Pt read MC message. * Telephone Encounter - Steph Nieto - 08/11/2024 3:32 PM EDT [facility] appt on 09/10 moved to 3 PM. 1st attempt to notify pt, sent MC message. documented in this encounterFairfield Medical Center10-08-2024 Telephone encounter Note * Telephone Encounter - Steph Nieto - 08/11/2024 3:32 PM EDT [facility] appt on 09/10 moved to 3 PM. 1st attempt to notify pt, sent MC message. [facility] Telephone encounter Note* Telephone Encounter - Ingrid Salmon MA - 08/11/2024 11:06 AM EDT Prescription Refill Information The patient has been identified by name and date of : Yes Caregiver verified no other encounters exist for this prescription request: Yes Caregiver confirmed with patient/requestor that no other refills are due, in the near future, with this provider at this time: No The last office visit in the department: 08/05/24 Does the patient have a future office visit with this provider/department: No Requested Prescriptions Pending Prescriptions Disp Refills tiZANidine (ZANAFLEX) 4 mg tablet 60 tablet 0 Sig: Take 1 tablet by mouth every 8 hours as needed. Inrgid Salmon MA August 11, 2024 11:06 AM [facility] Miscellaneous Notes* Telephone Encounter - Ingrid Salmon MA - 08/11/2024 11:06 AM EDT Prescription Refill Information The patient has been identified by name and date of : Yes Caregiver verified no other encounters exist for this prescription request: Yes Caregiver confirmed with patient/requestor that no other refills are due, in the near future, with this provider at this time: No The last office visit in the department: 08/05/24 Does the patient have a future office visit with this provider/department: No Requested Prescriptions Pending Prescriptions Disp Refills tiZANidine (ZANAFLEX) 4 mg tablet 60 tablet 0 Sig: Take 1 tablet by mouth every 8 hours as needed. Ingrid Salmon MA August 11, 2024 11:06 AM documented in this encounterFairfield Medical Center10-03-2024 Telephone encounter Note * Telephone Encounter - Dennise Robles MA - 08/06/2024 10:38 AM EDT APPROVAL. SAGE. EOC # [id number] VALIDITY DATES 08/06/24-08/05/25 Pharmacy informed. Dennise Robles MA [facility] Miscellaneous Notes* Telephone Encounter - Dennise Robles MA - 08/06/2024 10:38 AM EDT APPROVAL. [employer]AGE. EOC # [id number] VALIDITY DATES 08/06/24-08/05/25 Pharmacy informed. Dennise Robles MA documented in this encounterFairfield Medical Center10-02-2024 NoteHNO ID: [id number] Author: IVETTE GRIMES MD Service: ? Author Type: Physician Type: Progress Notes Filed: 08/05/2024 08:33 Note Text: Patient presents with: Physical HPI: Patient presents today for office visit for physical. Overall doing well. Has had a cough since early June. Was ill when it started. Had xray on 07/22 and doxycycline. She wonders if it is allergies. Is on lisinopril but started with illness. No wheezing. Is annoying and does not feel ill. Has a lot allergy issues. Farxiga is upsetting her stomach. Compares to when she took metformin. Glucose is good though. Initially did ok with trulicity but then had gi upset. Wants to try another. 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 Excited for this because will not be as physical. Reviewed labs recently done at [facility]. A1c was 6.7. ldl was 105. Hdl 35 The 10-year ASCVD risk score (Tom MANZO, et al., 2019) is: 2.9%* Values used to calculate the score: Age: 44 years Sex: Female Is Non- : No Diabetic: Yes Tobacco smoker: No Systolic Blood Pressure: 114 mmHg Is BP treated: Yes HDL Cholesterol: 35 mg/dL* Total Cholesterol: 195 mg/dL* * - Cholesterol units were assumed for this score calculation Current Outpatient Medications Medication Sig FLUoxetine (PROZAC) 20 mg capsule Take 1 capsule by mouth once daily. dapagliflozin propanediol (FARXIGA) 5 mg tablet Take 1 tablet by mouth once daily. Take one daily in the morning topiramate (TOPAMAX) 100 mg tablet Take 1 tablet by mouth two times a day. gabapentin (NEURONTIN) 300 mg capsule Take 1 capsule by mouth two times a day for 180 days. lisinopril (ZESTRIL) 10 mg tablet Take 1 tablet by mouth once daily. rimegepant (NURTEC ODT) 75 mg disintegrating tablet Take 1 tablet by mouth once daily as needed. naratriptan (AMERGE) 2.5 mg tablet Take 1 tablet (2.5 mg) by mouth as directed. at the onset of headache; if headache returns or does not fully resolve, the dose may be repeated after 4 hours; do not exceed five(5) mg in 24 hours. NO more than 10 doses a month. albuterol HFA (VENTOLIN HFA) 90 mcg/actuation inhaler Inhale 2 Puffs as instructed every 4 hours as needed for wheezing/shortness of breath. fexofenadine (ALMA ALLERGY) 180 mg tablet Take 1 tablet by mouth once daily. albuterol HFA (VENTOLIN HFA) 90 mcg/actuation inhaler Inhale 2 Puffs as instructed every 4 hours as needed for wheezing/shortness of breath. Ipratropium [place] (ATROVENT) 21 mcg (0.03 %) nasal spray Use 2 Sprays in the nose every 12 hours. omeprazole (PRILOSEC) 20 mg capsule Take 1 capsule by mouth daily before breakfast. 1/2 hr before meal. MAGNESIUM ORAL Take by mouth. meclizine (ANTIVERT) 25 mg tab Take 25 mg by mouth once daily. Takes two tabs in am BIPAP levonorgestrel (KYLEENA) 17.5 mcg/24 hrs (5 yrs) 19.5 mg IUD 1 Each by INTRAUTERINE route as directed. Herrick-3 Fatty Acids (FISH OIL) 500 mg cap Take 1 capsule by mouth once daily. blood sugar diagnostic (BLOOD GLUCOSE TEST) test strip Test blood sugar(s) 1 times daily. Dx: Type 2 DM - Controlled E11.9 Insulin: Yes Lancets lancets Test blood sugar(s) 1 times daily. Dx: Type 2 DM - Controlled E11.9 Insulin: No Qdpeygxt-Xv-Two-Fe-FA tab Take 1 tablet by mouth once daily. No current facility-administered medications for this visit. ALLERGIES: ALLERGIES Allergen Reactions Lidocaine Hives Steroids [Betametha* Hives PAST MEDICAL HISTORY Diagnosis Date Acute cholecystitis Cholecystitis Anxiety 06/07/2014 Chronic back pain Kidney stones LETITIA treated with BiPAP Type 2 diabetes mellitus (HCC) PAST SURGICAL HISTORY Procedure Laterality Date DELIVERY ONLY 2006 , low cervical INSERT INTRAUTERINE DEVICE 10/19/08 mirena LAPAROSCOPY SURG CHOLECYSTECTOMY 2006 Cholecystectomy, lap (Rowena Monet) PAST SURGICAL HISTORY OF 2019 stent into kidney REMOVE IUD 07/13/2010 FAMILY HISTORY Problem Relation Age of Onset Alcohol/Drug Mother Heart Father [place] Cancer Father PANCREATIC CANCER Diabetes Father Coronary Artery Disease Father Anxiety disorder Sister Depression Sister Depression Brother Cancer Maternal Grandmother LUNG CANCER Diabetes Maternal Grandfather Heart Paternal Grandmother TRIPLE BYPASS SURGERY Social History Tobacco Use Smoking status: Never Smokeless tobacco: Never Vaping Use Vaping status: Never Used Substance Use Topics Alcohol use: No Drug use: No Reviewed current medications, allergies, past medical history, surgical history, family history and social history today. REVIEW OF SYSTEMS GENERAL: No weight loss, malaise or fevers HEENT: No changes in hearing or vision, no nose bleeds or other nasal problems RESPIRATORY: cough as above. No shortness of breath or wheez (more content not included)...[facility]10-02-2024 History of Present illness Narrative* Ivette Grimes MD - 08/05/2024 8:01 AM EDT Patient presents with: Physical HPI: Patient presents today for office visit for physical. Overall doing well. Has had a cough since early June. Was ill when it started. Had xray on 07/22 and doxycycline. She wonders if it is allergies. Is on lisinopril but started with illness. No wheezing. Is annoying and does not feel ill. Has a lot allergy issues. Farxiga is upsetting her stomach. Compares to when she took metformin. Glucose is good though. Initially did ok with trulicity but then had gi upset. Wants to try another. 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 Excited for this because will not be as physical. Reviewed labs recently done at [facility]. A1c was 6.7. ldl was 105. Hdl 35 The 10-year ASCVD risk score (Tom MANZO, et al., 2019) is: 2.9%* Values used to calculate the score: Age: 44 years Sex: Female Is Non- : No Diabetic: Yes Tobacco smoker: No Systolic Blood Pressure: 114 mmHg Is BP treated: Yes HDL Cholesterol: 35 mg/dL* Total Cholesterol: 195 mg/dL* * - Cholesterol units were assumed for this score calculation Current Outpatient Medications Medication Sig FLUoxetine (PROZAC) 20 mg capsule Take 1 capsule by mouth once daily. dapagliflozin propanediol (FARXIGA) 5 mg tablet Take 1 tablet by mouth once daily. Take one daily in the morning topiramate (TOPAMAX) 100 mg tablet Take 1 tablet by mouth two times a day. gabapentin (NEURONTIN) 300 mg capsule Take 1 capsule by mouth two times a day for 180 days. lisinopril (ZESTRIL) 10 mg tablet Take 1 tablet by mouth once daily. rimegepant (NURTEC ODT) 75 mg disintegrating tablet Take 1 tablet by mouth once daily as needed. naratriptan (AMERGE) 2.5 mg tablet Take 1 tablet (2.5 mg) by mouth as directed. at the onset of headache; if headache returns or does not fully resolve, the dose may be repeated after 4 hours; do notexceed five(5) mg in 24 hours. NO more than 10 doses a month. albuterol HFA (VENTOLIN HFA) 90 mcg/actuation inhaler Inhale 2 Puffs as instructed every 4 hours asneeded for wheezing/shortness of breath. fexofenadine (ALMA ALLERGY) 180 mg tablet Take 1 tablet by mouth once daily. albuterol HFA (VENTOLIN HFA) 90 mcg/actuation inhaler Inhale 2 Puffs as instructed every 4 hours asneeded for wheezing/shortness of breath. Ipratropium [place] (ATROVENT) 21 mcg (0.03 %) nasal spray Use 2 Sprays in the nose every 12 hours. omeprazole (PRILOSEC) 20 mg capsule Take 1 capsule by mouth daily before breakfast. 1/2 hr before meal. MAGNESIUM ORAL Take by mouth. meclizine (ANTIVERT) 25 mg tab Take 25 mg by mouth once daily. Takes two tabs in am BIPAP levonorgestrel (KYLEENA) 17.5 mcg/24 hrs (5 yrs) 19.5 mg IUD 1 Each by INTRAUTERINE route as directed. Herrick-3 Fatty Acids (FISH OIL) 500 mg cap Take 1 capsule by mouth once daily. blood sugar diagnostic (BLOOD GLUCOSE TEST) test strip Test blood sugar(s) 1 times daily. Dx: Type 2 DM - Controlled E11.9 Insulin: Yes Lancets lancets Test blood sugar(s) 1 times daily. Dx: Type 2 DM - Controlled E11.9 Insulin: No Ghskanhu-Tq-Lau-Fe-FA tab Take 1 tablet by mouth once daily. No current facility-administered medications for this visit. ALLERGIES: ALLERGIES Allergen Reactions Lidocaine Hives Steroids [Betametha* Hives PAST MEDICAL HISTORY Diagnosis Date Acute cholecystitis Cholecystitis Anxiety 06/07/2014 Chronic back pain Kidney stones LETITIA treated with BiPAP Type 2 diabetes mellitus (HCC) PAST SURGICAL HISTORY Procedure Laterality Date DELIVERY ONLY 2005 , low cervical INSERT INTRAUTERINE DEVICE 10/19/08 mirena LAPAROSCOPY SURG CHOLECYSTECTOMY 2005 Cholecystectomy, lap (Rowena Monet) PAST SURGICAL HISTORY OF 2019 stent into kidney REMOVE IUD 07/13/2010 FAMILY HISTORY Problem Relation Age of Onset Alcohol/Drug Mother Heart Father [place] Cancer Father PANCREATIC CANCER Diabetes Father Coronary Artery Disease Father Anxiety disorder Sister Depression Sister Depression Brother Cancer Maternal Grandmother LUNG CANCER Diabetes Maternal Grandfather Heart Paternal Grandmother TRIPLE BYPASS SURGERY Social History Tobacco Use Smoking status: Never Smokeless tobacco: Never Vaping Use Vaping status: Never Used Substance Use Topics Alcohol use: No Drug use: No Reviewed current medications, allergies, past medical history, surgical history, family history andsocial history today. REVIEW OF SYSTEMS GENERAL: No weight loss, malaise or fevers HEENT: No changes in hearing or vision, no nose bleeds or other nasal problems RESPIRATORY: cough as above. No shortness of breath or wheezing. CARDIOVASCULAR: Negative for chest pain, leg swelling, CHF or palpitations GI: Negative for blood in stools or black stools, change in bowel habit, vomiting : No history of dysuria, frequency or incontinence SKIN: Negative for lesions, rash, and itching PSYCH: Negative for sleep disturbance, mood disorder and recent psychosocial stressors HEMATOLOGY/LYMPHOLOGY: Negative for prolonged bleeding, bruising easily or swollen nodes NEURO: headaches are stable. Getting periodic botox. Meds are working . All other reviewed and negative other than HPI. HEALTH MAINTENANCE: Reviewed health maintenance issues today and recommended the following in detail. Depression Screening Never done Pneumococcal Vaccine(2 of 2 - PCV) due on 07/28/2020 DTaP,Tdap,Td Vaccine(2 - Td or Tdap) due on 06/01/2023 Mammogram Screening due on 08/10/2023 Cervical Cancer Screening -sees Dr Camacho. Has appt soon. BP Controlled (<130/80) due on 03/05/2024 Diabetic Foot Exam due on 06/06/2024 Influenza Vaccine(1) due on 07/05/2024 Covid-19 Vaccine( season) due on 07/05/2024 VITALS: BP 114/62 Pulse (!) 56 Wt 131.5 kg (289 lb 14.5 oz) LMP (LMP Unknown) SpO2 96% BMI 42.81 kg/m Last 4 Encounter Wt Readings: Date: Wt: 07/03/2024 128.8 kg (284 lb) 04/02/2024 126 kg (277 lb 12.5 oz) 12/26/2023 123.4 kg (271 lb 15 oz) 12/09/2023 122.9 kg (271 lb) PHYSICAL EXAMINATION: General appearance: Well appearing, alert, in no acute distress, well-hydrated, well nourished. Skin: Skin color, texture, turgor normal, no suspicious rashes or lesions Head: Normocephalic, no masses, lesions, tenderness or abnormalities Eyes: Anicteric sclera. Pupils are equally round and reactive to light. Extraocular movements are intact. Ears: External ears normal, canals clear Nose/Sinuses: Nares normal, septum midline, mucosa normal, no drainage or sinus tenderness Oropharynx: Lips, mucosa, and tongue normal, teeth and gums normal, oropharynx normal Neck: Supple, no adenopathy; thyroid symmetric, normal size, no bruits. Neck is thick Back: Normal exam Lungs: Lungs clear to auscultation. No wheezing, rhonchi, rales Heart: RRR without murmur, gallop, or rubs. No ectopy Abdomen: Normal abdominal exam, Abdomen soft, non-tender. Bowel sounds normal. No masses, organomegaly Extremities: No deformities, edema, skin discoloration, clubbing or cyanosis. Good capillary refill. Feet:Shoes and socks removed, No deformities, ulcers, calluses, normal distal pulses, and sensitiveto 10 gm monofilament ASSESSMENT/PLAN: 1. Well adult exam - ICD9: V70.0, ICD10: Z00.00 (primary diagnosis) - Counseled on healthy diet and regular exercise 2. Essential (primary) hypertension - ICD9: 401.9, ICD10: I10 - Controlled - Continue current medications - Discussed need for and benefit of weight loss. BMI 42.81 kg/(m^2) 3. LETITIA (obstructive sleep apnea) - ICD9: 327.23, ICD10: G47.33 -using bipap and benefiting from its use. 4. Nonalcoholic fatty liver - ICD9: 571.8, ICD10: K76.0 - most recently labs have been normal. 5. Type 2 diabetes mellitus with microalbuminuria, with long-term current use of insulin (HCC) - ICD9: 250.40, 791.0, V58.67, ICD10: E11.29, R80.9, Z79.4 - Controlled - switch to semaglutide. - call with sugars in two weeks. Call if issues tolerating meds. - SEMAGLUTIDE 0.25 MG OR 0.5 MG (2 MG/3 ML) SUBCUTANEOUS PEN INJECTOR 6. Vertigo - ICD9: 780.4, ICD10: R42 - stable. 7. Morbid obesity (HCC) - ICD9: 278.01, ICD10: E66.01 -as above. Try med change. 8. Anxiety - ICD9: 300.00, ICD10: F41.9 - stable. 9. Prolonged Q-T interval on ECG - ICD9: 794.31, ICD10: R94.31 - has seen cardiolgy 10. Herniation of lumbar intervertebral disc with radiculopathy - ICD9: 722.10, 724.4, ICD10: M51.16 - stable. Ivette Grimes MD [facility] Tele[facility] encounter [facility] * Telephone Encounter - Lubna Yoon LPN - 07/27/2024 8:44 AM EDT Prescription Refill Information The patient has been identified by name and date of : Yes Caregiver verified no other encounters exist for this prescription request: Yes Caregiver confirmed with patient/requestor that no other refills are due, in the near future, with this provider at this time: Yes The last office visit in the department: 07/03/2024 Does the patient have a future office visit with this provider/department: Yes Requested Prescriptions Pending Prescriptions Disp Refills FLUoxetine (PROZAC) 20 mg capsule 90 capsule 0 Sig: Take 1 capsule by mouth once daily. Lubna Yoon LPN July 27, 2024 8:45 AM [facility]09-23-2024 Miscellaneous Notes* Telephone Encounter - Lubna Yoon LPN - 07/27/2024 8:44 AM EDT Prescription Refill Information The patient has been identified by name and date of : Yes Caregiver verified no other encounters exist for this prescription request: Yes Caregiver confirmed with patient/requestor that no other refills are due, in the near future, with this provider at this time: Yes The last office visit in the department: 07/03/2024 Does the patient have a future office visit with this provider/department: Yes Requested Prescriptions Pending Prescriptions Disp Refills FLUoxetine (PROZAC) 20 mg capsule 90 capsule 0 Sig: Take 1 capsule by mouth once daily. Lubna Yoon LPN July 27, 2024 8:45 AM [facility] in [facility] encounterFair[facility]09-[facility]24 Telephone encounter Note * Telephone Encounter - Ingrid Salmon MA - 07/21/2024 3:02 PM EDT Pt notified. Requested to have order faxed to [facility]. Order faxed. Ingrid Salmon MA [facility]09-17-2024 Miscellaneous Notes* Telephone Encounter - Ingrid Salmon MA - 07/21/2024 3:02 PM EDT Pt notified. Requested to have order faxed to [facility]. Order faxed. Ingrid Salmon MA * Telephone Encounter - Ivette Grimes MD - 07/21/2024 2:18 PM EDT ordered * Telephone Encounter - Gale Bower RN - 07/21/2024 1:45 PM EDT Patient calls and states that cough is not getting any better. Patient states that Dr. Grimes had told her that if cough had not improved that provider wanted to order her a chest xray. Please review and advise, Gale Bower RN documented [facility] encounterFair[facility]09-17-[facility]24 Telephone encounter Note * Telephone Encounter - Ivette Grimes MD - 07/21/2024 2:18 PM EDT ordered [facility]09-17-[facility] Telephone encounter Note* Telephone Encounter - Gale Bower RN - 07/21/2024 1:45 PM EDT Patient calls and states that cough is not getting any better. Patient states that Dr. Grimes had told her that if cough had not improved that provider wanted to order her a chest xray. Please review and advise, Gale Bower RN [facility]09-06-2024 Telephone encounter Note* Telephone Encounter - Nirmala Storey LPN - 07/10/2024 11:16 AM EDT Left detailed message for patient. [facility] Miscellaneous Notes* Telephone Encounter - Nirmala Storey LPN - 07/10/2024 11:16 AM EDT Left detailed message for patient. * Telephone Encounter - Ivette Grimes MD - 07/10/2024 11:11 AM EDT Rx sent for farxiga. Lets try this Call sugars in two weeks. * Telephone Encounter - Gale Bower RN - 07/09/2024 4:34 PM EDT Patient calls and wanted provider to know that she has not been taking Trulicity since the june. Patient states that every time she takes medication it makes her stomach hurt too bad for a couple days after taking medication. Patient realizes that her fasting blood sugar as well as Hgb A1C were elevated with last labs done. Patient knows that her sugars are running high. Patient states that they have been running in 200s. Patient asking if there is any other medications that she can be taking? Please review and advise, Gale Bower RN documented in this encounterFair[facility]09-06-2024 Telephone encounter Note * Telephone Encounter - Ivette Grimes MD - 07/10/2024 11:11 AM EDT Rx sent for farxiga. Lets try this Call sugars in two weeks. [facility]09-05-2024 Telephone encounter Note* Telephone Encounter - Gale Bower RN - 07/09/2024 4:34 PM EDT Patient calls and wanted provider to know that she has not been taking Trulicity since the june. Patient states that every time she takes medication it makes her stomach hurt too bad for a couple days after taking medication. Patient realizes that her fasting blood sugar as well as Hgb A1C were elevated with last labs done. Patient knows that her sugars are running high. Patient states that they have been running in 200s. Patient asking if there is any other medications that she can be taking? Please review and advise, Gale Bower RN [facility]09-04-2024 Telephone encounter Note* Telephone Encounter - Ivette Grimes MD - 07/08/2024 2:03 PM EDT noted [facility]09-04-20[facility] Miscellaneous Notes* Telephone Encounter - Ivette Grimes MD - 07/08/2024 2:03 PM EDT noted * Telephone Encounter - Dennise Robles MA - 07/08/2024 1:13 PM EDT Labs in chart review. Dennise Robles MA documented in this encounterFair[facility] Center09-04-2024 Telephone encounter Note * Telephone Encounter - Dennise Robles MA - 07/08/2024 1:13 PM EDT Labs in chart review. Dennise Robles MA [facility]08-30-[facility]24 NoteHNO ID: [id number] Author: IVETTE GRIMES MD Service: ? Author Type: Physician Type: Progress Notes Filed: 07/03/2024 15:54 Note Text: Patient presents with: Cough HPI: Patient presents today for office visit for follow up. Cough: Nonproductive. Nothing helping. Mucinex, dayquil, Nyquil. At night hard to breath when lies down until she puts her bipap on. Family has had pneumonia. Back to wearing masks at work and that doesn't help. COVID tests are negative. Only had a low grade fever one day. Has been going on for over a month. Having to use her inhaler. No sore throat. No sinus congestion. No nausea or vomiting. No diarrhea. Due for her normal labs. Sugars have been good. MEDICATIONS: Current Outpatient Medications Medication Sig tiZANidine (ZANAFLEX) 4 mg tablet Take 1 tablet by mouth every 8 hours as needed. topiramate (TOPAMAX) 100 mg tablet Take 1 tablet by mouth two times a day. gabapentin (NEURONTIN) 300 mg capsule Take 1 capsule by mouth two times a day for 180 days. FLUoxetine (PROZAC) 20 mg capsule Take 1 capsule by mouth once daily. lisinopril (ZESTRIL) 10 mg tablet Take 1 tablet by mouth once daily. rimegepant (NURTEC ODT) 75 mg disintegrating tablet Take 1 tablet by mouth once daily as needed. naratriptan (AMERGE) 2.5 mg tablet Take 1 tablet (2.5 mg) by mouth as directed. at the onset of headache; if headache returns or does not fully resolve, the dose may be repeated after 4 hours; do not exceed five(5) mg in 24 hours. NO more than 10 doses a month. dulaglutide (TRULICITY) 0.75 mg/0.5 mL pen injector Inject 0.75 mg subcutaneously one time a week. Inject dose once per week. Discard Pen After albuterol HFA (VENTOLIN HFA) 90 mcg/actuation inhaler Inhale 2 Puffs as instructed every 4 hours as needed for wheezing/shortness of breath. fexofenadine (ALMA ALLERGY) 180 mg tablet Take 1 tablet by mouth once daily. albuterol HFA (VENTOLIN HFA) 90 mcg/actuation inhaler Inhale 2 Puffs as instructed every 4 hours as needed for wheezing/shortness of breath. Ipratropium [place] (ATROVENT) 21 mcg (0.03 %) nasal spray Use 2 Sprays in the nose every 12 hours. omeprazole (PRILOSEC) 20 mg capsule Take 1 capsule by mouth daily before breakfast. 1/2 hr before meal. MAGNESIUM ORAL Take by mouth. meclizine (ANTIVERT) 25 mg tab Take 25 mg by mouth once daily. Takes two tabs in am BIPAP levonorgestrel (KYLEENA) 17.5 mcg/24 hrs (5 yrs) 19.5 mg IUD 1 Each by INTRAUTERINE route as directed. Herrick-3 Fatty Acids (FISH OIL) 500 mg cap Take 1 capsule by mouth once daily. blood sugar diagnostic (BLOOD GLUCOSE TEST) test strip Test blood sugar(s) 1 times daily. Dx: Type 2 DM - Controlled E11.9 Insulin: Yes Lancets lancets Test blood sugar(s) 1 times daily. Dx: Type 2 DM - Controlled E11.9 Insulin: No Wverihsb-Ei-Zrv-Fe-FA tab Take 1 tablet by mouth once daily. No current facility-administered medications for this visit. ALLERGIES: ALLERGIES Allergen Reactions Lidocaine Hives Steroids [Betametha* Hives PAST MEDICAL HISTORY No date: Acute cholecystitis Comment: Cholecystitis 06/07/2014: Anxiety No date: Chronic back pain No date: Kidney stones No date: LETITIA treated with BiPAP No date: Type 2 diabetes mellitus (HCC) PAST SURGICAL HISTORY 2006: DELIVERY ONLY Comment: , low cervical 10/19/08: INSERT INTRAUTERINE DEVICE Comment: [place] 2006: LAPAROSCOPY SURG CHOLECYSTECTOMY Comment: Cholecystectomy, lap (Rowena Monet) 2019: PAST SURGICAL HISTORY OF Comment: stent into kidney 07/13/2010: REMOVE IUD FAMILY HISTORY Problem Relation Age of Onset Alcohol/Drug Mother Heart Father [place] Cancer Father PANCREATIC CANCER Diabetes Father Coronary Artery Disease Father Anxiety disorder Sister Depression Sister Depression Brother Cancer Maternal Grandmother LUNG CANCER Diabetes Maternal Grandfather Heart Paternal Grandmother TRIPLE BYPASS SURGERY Social History Tobacco Use Smoking status: Never Smokeless tobacco: Never Vaping Use Vaping status: Never Used Substance Use Topics Alcohol use: No Drug use: No Reviewed current medications, allergies, past medical history, surgical history, family history and social history today. REVIEW OF SYSTEMS All other reviewed and negative other than HPI. VITALS: BP 152/82 Pulse 78 Wt 128.8 kg (284 lb) LMP (LMP Unknown) SpO2 98% BMI 41.94 kg/m? Last 4 Encounter Wt Readings: Date: Wt: 04/02/2024 126 kg (277 lb 12.5 oz) 12/26/2023 123.4 kg (271 lb 15 oz) 12/09/2023 122.9 kg (271 lb) 11/06/2023 130.2 kg (287 lb) PHYSICAL EXAMINATION: General appearance: Well appearing, alert, in no acute distress, well-hydrated, well nourished. Skin: Skin color, texture, turgor normal, no suspicious rashes or lesions Head: Normocephalic, no masses, lesions, tenderness or abnormalities Eyes: Anicteric sclera. Pupils are equally round and reacti (more content not included)...[facility]08-30-20[facility] History of Present illness Narrative* Ivette Grimes MD - 07/03/2024 3:26 PM EDT Patient presents with: Cough HPI: Patient presents today for office visit for follow up. Cough: Nonproductive. Nothing helping. Mucinex, dayquil, Nyquil. At night hard to breath when lies down until she puts her bipap on. Family has had pneumonia. Back to wearing masks at work and that doesn't help. COVID tests are negative. Only had a low grade fever one day. Has been going on for over a month. Having to use her inhaler. No sore throat. No sinus congestion. No nausea or vomiting. No diarrhea. Due for her normal labs. Sugars have been good. MEDICATIONS: Current Outpatient Medications Medication Sig tiZANidine (ZANAFLEX) 4 mg tablet Take 1 tablet by mouth every 8 hours as needed. topiramate (TOPAMAX) 100 mg tablet Take 1 tablet by mouth two times a day. gabapentin (NEURONTIN) 300 mg capsule Take 1 capsule by mouth two times a day for 180 days. FLUoxetine (PROZAC) 20 mg capsule Take 1 capsule by mouth once daily. lisinopril (ZESTRIL) 10 mg tablet Take 1 tablet by mouth once daily. rimegepant (NURTEC ODT) 75 mg disintegrating tablet Take 1 tablet by mouth once daily as needed. naratriptan (AMERGE) 2.5 mg tablet Take 1 tablet (2.5 mg) by mouth as directed. at the onset of headache; if headache returns or does not fully resolve, the dose may be repeated after 4 hours; do notexceed five(5) mg in 24 hours. NO more than 10 doses a month. dulaglutide (TRULICITY) 0.75 mg/0.5 mL pen injector Inject 0.75 mg subcutaneously one time a week. Inject dose once per week. Discard Pen After albuterol HFA (VENTOLIN HFA) 90 mcg/actuation inhaler Inhale 2 Puffs as instructed every 4 hours asneeded for wheezing/shortness of breath. fexofenadine (ALMA ALLERGY) 180 mg tablet Take 1 tablet by mouth once daily. albuterol HFA (VENTOLIN HFA) 90 mcg/actuation inhaler Inhale 2 Puffs as instructed every 4 hours asneeded for wheezing/shortness of breath. Ipratropium [place] (ATROVENT) 21 mcg (0.03 %) nasal spray Use 2 Sprays in the nose every 12 hours. omeprazole (PRILOSEC) 20 mg capsule Take 1 capsule by mouth daily before breakfast. 1/2 hr before meal. MAGNESIUM ORAL Take by mouth. meclizine (ANTIVERT) 25 mg tab Take 25 mg by mouth once daily. Takes two tabs in am BIPAP levonorgestrel (KYLEENA) 17.5 mcg/24 hrs (5 yrs) 19.5 mg IUD 1 Each by INTRAUTERINE route as directed. Herrick-3 Fatty Acids (FISH OIL) 500 mg cap Take 1 capsule by mouth once daily. blood sugar diagnostic (BLOOD GLUCOSE TEST) test strip Test blood sugar(s) 1 times daily. Dx: Type 2 DM - Controlled E11.9 Insulin: Yes Lancets lancets Test blood sugar(s) 1 times daily. Dx: Type 2 DM - Controlled E11.9 Insulin: No Ytedioyo-Cx-Nna-Fe-FA tab Take 1 tablet by mouth once daily. No current facility-administered medications for this visit. ALLERGIES: ALLERGIES Allergen Reactions Lidocaine Hives Steroids [Betametha* Hives PAST MEDICAL HISTORY No date: Acute cholecystitis Comment: Cholecystitis 06/07/2014: Anxiety No date: Chronic back pain No date: Kidney stones No date: LETITIA treated with BiPAP No date: Type 2 diabetes mellitus (HCC) PAST SURGICAL HISTORY 2006: DELIVERY ONLY Comment: , low cervical 10/19/08: INSERT INTRAUTERINE DEVICE Comment: [facility] 2006: LAPAROSCOPY SURG CHOLECYSTECTOMY Comment: Cholecystectomy, lap (Rowena Monet) 2019: PAST SURGICAL HISTORY OF Comment: stent into kidney 07/13/2010: REMOVE IUD FAMILY HISTORY Problem Relation Age of Onset Alcohol/Drug Mother Heart Father [place] Cancer Father PANCREATIC CANCER Diabetes Father Coronary Artery Disease Father Anxiety disorder Sister Depression Sister Depression Brother Cancer Maternal Grandmother LUNG CANCER Diabetes Maternal Grandfather Heart Paternal Grandmother TRIPLE BYPASS SURGERY Social History Tobacco Use Smoking status: Never Smokeless tobacco: Never Vaping Use Vaping status: Never Used Substance Use Topics Alcohol use: No Drug use: No Reviewed current medications, allergies, past medical history, surgical history, family history andsocial history today. REVIEW OF SYSTEMS All other reviewed and negative other than HPI. VITALS: BP 152/82 Pulse 78 Wt 128.8 kg (284 lb) LMP (LMP Unknown) SpO2 98% BMI 41.94 kg/m Last 4 Encounter Wt Readings: Date: Wt: 04/02/2024 126 kg (277 lb 12.5 oz) 12/26/2023 123.4 kg (271 lb 15 oz) 12/09/2023 122.9 kg (271 lb) 11/06/2023 130.2 kg (287 lb) PHYSICAL EXAMINATION: General appearance: Well appearing, alert, in no acute distress, well-hydrated, well nourished. Skin: Skin color, texture, turgor normal, no suspicious rashes or lesions Head: Normocephalic, no masses, lesions, tenderness or abnormalities Eyes: Anicteric sclera. Pupils are equally round and reactive to light. Extraocular movements are intact. Ears: External ears normal, canals clear Nose/Sinuses: Nares normal, septum midline, mucosa normal, no drainage or sinus tenderness Oropharynx: Lips, mucosa, and tongue normal, teeth and gums normal, oropharynx normal Neck: Negative findings: no adenopathy Lungs: Lungs clear to auscultation. No wheezing, rhonchi, rales Heart: RRR without murmur, gallop, or rubs. No ectopy Abdomen: Normal abdominal exam, Abdomen soft, non-tender. Bowel sounds normal. No masses, organomegaly ASSESSMENT/PLAN: 1. Bronchitis - ICD9: 490, ICD10: J40 (primary diagnosis) - cannot tolerate steroids. Use inhalers Otc cough meds. Consider xray if continues. Discussed risks and benefits of new medication with the patient. Advised them to call if any side effects or questions. Red flags for re-assessment reviewed with patient in detail. Call if symptoms worsen at all or if not better in one to two weeks Reviewed diagnosis and treatment options in detail. Questions were answered. Patient expressed understanding of treatment plan. - DOXYCYCLINE MONOHYDRATE 100 MG TABLET 2. Type 2 diabetes mellitus with microalbuminuria, with long-term current use of insulin (HCC) - ICD9: 250.40, 791.0, V58.67, ICD10: E11.29, R80.9, Z79.4 - COMPLETE BLOOD COUNT AND DIFFERENTIAL - COMPREHENSIVE METABOLIC PANEL - LIPID PANEL BASIC - HEMOGLOBIN A1C - ALBUMIN/CREATININE RATIO, URINE 3. Wheezing - ICD9: 786.07, ICD10: R06.2 - DOXYCYCLINE MONOHYDRATE 100 MG TABLET Ivette Grimes MD Keep next follow up or prn documented in this encounterFair[facility]08-[facility]24 Telephone encounter Note * Telephone Encounter - Quinn Lazo LPN - 06/27/2024 11:35 AM EDT Prescription Refill Information The patient has been identified by name and date of : Yes Caregiver verified no other encounters exist for this prescription request: Yes Caregiver confirmed with patient/requestor that no other refills are due, in the near future, with this provider at this time: Yes The last office visit in the department: 06/03/24 Does the patient have a future office visit with this provider/department: Yes, 08/05/24 Requested Prescriptions Pending Prescriptions Disp Refills tiZANidine (ZANAFLEX) 4 mg tablet 60 tablet 0 Sig: Take 1 tablet by mouth every 8 hours as needed. Quinn Lazo LPN June 27, 2024 11:35 AM [facility]08-24-2024 Miscellaneous Notes* Telephone Encounter - Quinn Lazo LPN - 06/27/2024 11:35 AM EDT Prescription Refill Information The patient has been identified by name and date of : Yes Caregiver verified no other encounters exist for this prescription request: Yes Caregiver confirmed with patient/requestor that no other refills are due, in the near future, with this provider at this time: Yes The last office visit in the department: 06/03/24 Does the patient have a future office visit with this provider/department: Yes, 08/05/24 Requested Prescriptions Pending Prescriptions Disp Refills tiZANidine (ZANAFLEX) 4 mg tablet 60 tablet 0 Sig: Take 1 tablet by mouth every 8 hours as needed. Quinn Lazo LPN June 27, 2024 11:35 AM documented in this encounterFairfield [facility] Center08-24-2024 Telephone encounter Note * Telephone Encounter - Quinn Lazo LPN - 06/27/2024 11:29 AM EDT Prescription Refill Information The patient has been identified by name and date of : Yes Caregiver verified no other encounters exist for this prescription request: Yes Caregiver confirmed with patient/requestor that no other refills are due, in the near future, with this provider at this time: Yes The last office visit in the department: 06/03/24 Does the patient have a future office visit with this provider/department: Yes, 08/05/24 Requested Prescriptions Pending Prescriptions Disp Refills topiramate (TOPAMAX) 100 mg tablet 60 tablet 5 Sig: Take 1 tablet by mouth two times a day. *Last rx written 05/13/24 #60 with 5 refills. Pt is not due for refills. [facility] message to pt advising of the same. Quinn Lazo LPN June 27, 2024 11:29 AM [facility]08-[facility] Miscellaneous Notes* Telephone Encounter - Quinn Lazo LPN - 06/27/2024 11:29 AM EDT Prescription Refill Information The patient has been identified by name and date of : Yes Caregiver verified no other encounters exist for this prescription request: Yes Caregiver confirmed with patient/requestor that no other refills are due, in the near future, with this provider at this time: Yes The last office visit in the department: 06/03/24 Does the patient have a future office visit with this provider/department: Yes, 08/05/24 Requested Prescriptions Pending Prescriptions Disp Refills topiramate (TOPAMAX) 100 mg tablet 60 tablet 5 Sig: Take 1 tablet by mouth two times a day. *Last rx written 05/13/24 #60 with 5 refills. Pt is not due for refills. message to pt advising of the same. Quinn Lazo LPN June 27, 2024 11:29 AM documented in this encounterFairfield Medical Center08-08-2024 Telephone encounter Note * Telephone Encounter - Lubna De La Garza APRN.CNP - 06/11/2024 12:40 PM EDT Ángel Rodriges were ordered. [facility]08-[facility] Miscellaneous Notes* Telephone Encounter - Lubna De La Garza APRN.CNP - 06/11/2024 12:40 PM EDT Ángel Rodriges were ordered. * Telephone Encounter - Ingrid Salmon MA - 06/11/2024 12:25 PM EDT See Publification [employer] message documented in this encounterFairfield Medical Center08-08-2024 Telephone encounter Note * Telephone Encounter - Ingrid Salmon MA - 06/11/2024 12:25 PM EDT See mychargaviota message [facility]08-01-[facility] Telephone encounter Note* Telephone Encounter - Claribel Wright LPN - 06/04/2024 3:37 PM EDT Prior Auth Determination: Denied with Cover my meds. Received via: CMM Medication/ Treatment: Nurtec Reason: Outcome N/A today by [facility] Prior Authorization Department does not manage Prior Authorizations for this plan. Please contact member services phone number on the back of the member ID card. Appeal Information (if included): Re submitted via RX Benefits Faxed to [phone] Confirmation received [facility]08-01-2024 Miscellaneous Notes* Telephone Encounter - Claribel Wright LPN - 06/04/2024 3:37 PM EDT Prior Auth Determination: Denied with Cover my meds. Received via: CMM Medication/ Treatment: Nurte Reason: Outcome N/A today by [facility] [address] [facility] Prior Authorization Department does not manage Prior Authorizations for this plan. Please contact member services phone number on the back of the member ID card. Appeal Information (if included): Re submitted via RX Benefits Faxed to [phone] Confirmation received * Telephone Encounter - Claribel Wright LPN - 06/04/2024 2:22 PM EDT Prior Authorization PENDING Prior Authorization Request From: [facility] Medication/ Treatment: Nurtec Submitted Via Cover My Meds Reference# (if available): (Santos: [id number]) documented in this encounterFairfield Medical Center08-01-2024 Telephone encounter Note * Telephone Encounter - Claribel Wright LPN - 06/04/2024 2:22 PM EDT Prior Authorization PENDING Prior Authorization Request From: [facility] Medication/ Treatment: Nurtec Submitted Via Cover My Meds Reference# (if available): (Santos: [id number]) [facility]07-31-[facility] NoteHNO ID: [id number] Author: IVETTE GRIMES MD Service: ? Author Type: Physician Type: Progress Notes Filed: 06/03/2024 15:38 Note Text: Patient presents with: Acute Visit HPI:This visit is a virtual encounter. It required patient-provider interaction for the medical decision making as documented below. Patient has elected to have a visit through distance medicine I have communicated my name and active licensure. The patient's identity and physical location were verified at the time of this visit. Either the patient or their legal front office representative has been informed of the risks and benefits of -- and alternatives to -- treatment through a remote evaluation and consents to proceed with the evaluation remotely. Having pain in her lower back. Feels like its is in the muscles in her lower back. Her muscles were twitching and was having spasms. Pain goes down the left leg. Was using ibu and tylenol Sees chiropractic in am. Does not feel it is her discs. Feels lower. Discomfort goes down the leg at times to her foot. No trauma. No issues controlling bowel or bladder No numbness or weakness. Leg is not hot or red or swollen. No urinary issues. Discussed her phq9. She hit the wrong button. No suicidal ideation. Moods are stable. MEDICATIONS: Current Outpatient Medications Medication Sig topiramate (TOPAMAX) 100 mg tablet Take 1 tablet by mouth two times a day. gabapentin (NEURONTIN) 300 mg capsule Take 1 capsule by mouth two times a day for 180 days. FLUoxetine (PROZAC) 20 mg capsule Take 1 capsule by mouth once daily. lisinopril (ZESTRIL) 10 mg tablet Take 1 tablet by mouth once daily. rimegepant (NURTEC ODT) 75 mg disintegrating tablet Take 1 tablet by mouth once daily as needed. naratriptan (AMERGE) 2.5 mg tablet Take 1 tablet (2.5 mg) by mouth as directed. at the onset of headache; if headache returns or does not fully resolve, the dose may be repeated after 4 hours; do not exceed five(5) mg in 24 hours. NO more than 10 doses a month. dulaglutide (TRULICITY) 0.75 mg/0.5 mL pen injector Inject 0.75 mg subcutaneously one time a week. Inject dose once per week. Discard Pen After albuterol HFA (VENTOLIN HFA) 90 mcg/actuation inhaler Inhale 2 Puffs as instructed every 4 hours as needed for wheezing/shortness of breath. fexofenadine (ALMA ALLERGY) 180 mg tablet Take 1 tablet by mouth once daily. albuterol HFA (VENTOLIN HFA) 90 mcg/actuation inhaler Inhale 2 Puffs as instructed every 4 hours as needed for wheezing/shortness of breath. Ipratropium [place] (ATROVENT) 21 mcg (0.03 %) nasal spray Use 2 Sprays in the nose every 12 hours. omeprazole (PRILOSEC) 20 mg capsule Take 1 capsule by mouth daily before breakfast. 1/2 hr before meal. MAGNESIUM ORAL Take by mouth. meclizine (ANTIVERT) 25 mg tab Take 25 mg by mouth once daily. Takes two tabs in am BIPAP levonorgestrel (KYLEENA) 17.5 mcg/24 hrs (5 yrs) 19.5 mg IUD 1 Each by INTRAUTERINE route as directed. Herrick-3 Fatty Acids (FISH OIL) 500 mg cap Take 1 capsule by mouth once daily. blood sugar diagnostic (BLOOD GLUCOSE TEST) test strip Test blood sugar(s) 1 times daily. Dx: Type 2 DM - Controlled E11.9 Insulin: Yes Lancets lancets Test blood sugar(s) 1 times daily. Dx: Type 2 DM - Controlled E11.9 Insulin: No Bmjzxdep-Ab-Yyw-Fe-FA tab Take 1 tablet by mouth once daily. No current facility-administered medications for this visit. ALLERGIES: ALLERGIES Allergen Reactions Lidocaine Hives Steroids [Betametha* Hives PAST MEDICAL HISTORY No date: Acute cholecystitis Comment: Cholecystitis 06/07/2014: Anxiety No date: Chronic back pain No date: Kidney stones No date: LETITIA treated with BiPAP No date: Type 2 diabetes mellitus (HCC) PAST SURGICAL HISTORY 2006: DELIVERY ONLY Comment: , low cervical 10/19/08: INSERT INTRAUTERINE DEVICE Comment: [facility] 2006: LAPAROSCOPY SURG CHOLECYSTECTOMY Comment: Cholecystectomy, lap (Rowena Monet) 2019: PAST SURGICAL HISTORY OF Comment: stent into kidney 07/13/2010: REMOVE IUD FAMILY HISTORY Problem Relation Age of Onset Alcohol/Drug Mother Heart Father [place] Cancer Father PANCREATIC CANCER Diabetes Father Coronary Artery Disease Father Anxiety disorder Sister Depression Sister Depression Brother Cancer Maternal Grandmother LUNG CANCER Diabetes Maternal Grandfather Heart Paternal Grandmother TRIPLE BYPASS SURGERY Social History Tobacco Use Smoking status: Never Smokeless tobacco: Never Vaping Use Vaping Use: Never used Substance Use Topics Alcohol use: No Drug use: No Reviewed current medications, allergies, past medical history, surgical history, family history and social history today. REVIEW OF SYSTEMS All other reviewed and negative other than HPI. VITALS: Could not assess Last 4 Encounter Wt Readings: Date: Wt: 04/02/2024 126 kg (277 lb 12.5 oz) 12/26/2023 123.4 kg (more content not included)...[facility] 06-03-2024 History of Present illness Narrative* Ivette Grimes MD - 06/03/2024 3:21 PM EDT Patient presents with: Acute Visit HPI:This visit is a virtual encounter. It required patient-provider interaction for the medical decision making as documented below. Patient has elected to have a visit through distance medicine I have communicated my name and active licensure. The patient's identity and physical location wereverified at the time of this visit. Either the patient or their legal front office representative has been informed of the risks and benefits of -- and alternatives to -- treatment through a remote evaluation andconsents to proceed with the evaluation remotely. Having pain in her lower back. Feels like its is in the muscles in her lower back. Her muscles were twitching and was having spasms. Pain goes down the left leg. Was using ibu and tylenol Sees chiropractic in am. Does not feel it is her discs. Feels lower. Discomfort goes down the leg at times to her foot. No trauma. No issues controlling bowel or bladder No numbness or weakness. Leg is not hot or red or swollen. No urinary issues. Discussed her phq9. She hit the wrong button. No suicidal ideation. Moods are stable. MEDICATIONS: Current Outpatient Medications Medication Sig topiramate (TOPAMAX) 100 mg tablet Take 1 tablet by mouth two times a day. gabapentin (NEURONTIN) 300 mg capsule Take 1 capsule by mouth two times a day for 180 days. FLUoxetine (PROZAC) 20 mg capsule Take 1 capsule by mouth once daily. lisinopril (ZESTRIL) 10 mg tablet Take 1 tablet by mouth once daily. rimegepant (NURTEC ODT) 75 mg disintegrating tablet Take 1 tablet by mouth once daily as needed. naratriptan (AMERGE) 2.5 mg tablet Take 1 tablet (2.5 mg) by mouth as directed. at the onset of headache; if headache returns or does not fully resolve, the dose may be repeated after 4 hours; do notexceed five(5) mg in 24 hours. NO more than 10 doses a month. dulaglutide (TRULICITY) 0.75 mg/0.5 mL pen injector Inject 0.75 mg subcutaneously one time a week. Inject dose once per week. Discard Pen After albuterol HFA (VENTOLIN HFA) 90 mcg/actuation inhaler Inhale 2 Puffs as instructed every 4 hours asneeded for wheezing/shortness of breath. fexofenadine (ALMA ALLERGY) 180 mg tablet Take 1 tablet by mouth once daily. albuterol HFA (VENTOLIN HFA) 90 mcg/actuation inhaler Inhale 2 Puffs as instructed every 4 hours asneeded for wheezing/shortness of breath. Ipratropium [place] (ATROVENT) 21 mcg (0.03 %) nasal spray Use 2 Sprays in the nose every 12 hours. omeprazole (PRILOSEC) 20 mg capsule Take 1 capsule by mouth daily before breakfast. 1/2 hr before meal. MAGNESIUM ORAL Take by mouth. meclizine (ANTIVERT) 25 mg tab Take 25 mg by mouth once daily. Takes two tabs in am BIPAP levonorgestrel (KYLEENA) 17.5 mcg/24 hrs (5 yrs) 19.5 mg IUD 1 Each by INTRAUTERINE route as directed. Herrick-3 Fatty Acids (FISH OIL) 500 mg cap Take 1 capsule by mouth once daily. blood sugar diagnostic (BLOOD GLUCOSE TEST) test strip Test blood sugar(s) 1 times daily. Dx: Type 2 DM - Controlled E11.9 Insulin: Yes Lancets lancets Test blood sugar(s) 1 times daily. Dx: Type 2 DM - Controlled E11.9 Insulin: No Pkppvccl-Pp-Ksj-Fe-FA tab Take 1 tablet by mouth once daily. No current facility-administered medications for this visit. ALLERGIES: ALLERGIES Allergen Reactions Lidocaine Hives Steroids [Betametha* Hives PAST MEDICAL HISTORY No date: Acute cholecystitis Comment: Cholecystitis 06/07/2014: Anxiety No date: Chronic back pain No date: Kidney stones No date: LETITIA treated with BiPAP No date: Type 2 diabetes mellitus (HCC) PAST SURGICAL HISTORY 2006: DELIVERY ONLY Comment: , low cervical 10/19/08: INSERT INTRAUTERINE DEVICE Comment: [facility] 2006: LAPAROSCOPY SURG CHOLECYSTECTOMY Comment: Cholecystectomy, lap (Rowena Monet) 2019: PAST SURGICAL HISTORY OF Comment: stent into kidney 07/13/2010: REMOVE IUD FAMILY HISTORY Problem Relation Age of Onset Alcohol/Drug Mother Heart Father [place] Cancer Father PANCREATIC CANCER Diabetes Father Coronary Artery Disease Father Anxiety disorder Sister Depression Sister Depression Brother Cancer Maternal Grandmother LUNG CANCER Diabetes Maternal Grandfather Heart Paternal Grandmother TRIPLE BYPASS SURGERY Social History Tobacco Use Smoking status: Never Smokeless tobacco: Never Vaping Use Vaping Use: Never used Substance Use Topics Alcohol use: No Drug use: No Reviewed current medications, allergies, past medical history, surgical history, family history andsocial history today. REVIEW OF SYSTEMS All other reviewed and negative other than HPI. VITALS: Could not assess Last 4 Encounter Wt Readings: Date: Wt: 04/02/2024 126 kg (277 lb 12.5 oz) 12/26/2023 123.4 kg (271 lb 15 oz) 12/09/2023 122.9 kg (271 lb) 11/06/2023 130.2 kg (287 lb) PHYSICAL EXAMINATION: Patient is alert and oriented during visit. Answers appropriately. Breathing comfortably. ASSESSMENT/PLAN: 1. Left sided sciatica - ICD9: 724.3, ICD10: M54.32 (primary diagnosis) - see chiropractic. Discussed risks and benefits of new medication with the patient. Advised them to call if any side effects or questions. Red flags for re-assessment reviewed with patient in detail. Call if symptoms worsen at all or if not better in one to two weeks Reviewed diagnosis and treatment options in detail. Questions were answered. Patient expressed understanding of treatment plan. Off work today. See chiropractic. - MELOXICAM 15 MG TABLET 2. Screening for depression - ICD9: V79.0, ICD10: Z13.31 -reveiwed phq2 and 9. See above. No issues. Ivette Grimes MD documented in this encounterFairfield [facility] Center07-10-2024 Telephone encounter Note * Telephone Encounter - Quinn Lazo LPN - 05/13/2024 11:29 AM EDT Prescription Refill Information The patient has been identified by name and date of : Yes Caregiver verified no other encounters exist for this prescription request: Yes Caregiver confirmed with patient/requestor that no other refills are due, in the near future, with this provider at this time: Yes The last office visit in the department: 12/09/23 Does the patient have a future office visit with this provider/department: No Requested Prescriptions Pending Prescriptions Disp Refills topiramate (TOPAMAX) 100 mg tablet 60 tablet 5 Sig: Take 1 tablet by mouth two times a day. Quinn Lazo LPN May 13, 2024 11:29 AM [facility]07-10-2024 Miscellaneous Notes* Telephone Encounter - Quinn Lazo LPN - 05/13/2024 11:29 AM EDT Prescription Refill Information The patient has been identified by name and date of : Yes Caregiver verified no other encounters exist for this prescription request: Yes Caregiver confirmed with patient/requestor that no other refills are due, in the near future, with this provider at this time: Yes The last office visit in the department: 12/09/23 Does the patient have a future office visit with this provider/department: No Requested Prescriptions Pending Prescriptions Disp Refills topiramate (TOPAMAX) 100 mg tablet 60 tablet 5 Sig: Take 1 tablet by mouth two times a day. Quinn Lazo LPN May 13, 2024 11:29 AM documented in this encounterFairfield Medical Center06-28-2024 Telephone encounter Note * Telephone Encounter - Cindy Edouard APRN.CNP - 05/01/2024 12:08 PM EDT Script sent. Cindy Edouard APRN.CNP [facility] Work Phone: [phone]) 868-500706-28-2024 Miscellaneous Notes* Telephone Encounter - Cindy Edouard APRN.CNP - 05/01/2024 12:08 PM EDT Script sent. Cindy Edouard APRN.CNP * Telephone Encounter - Rukhsana Wood - 05/01/2024 11:47 AM EDT Tori is calling Ivette Grimes MD today to request a medication not on current med list: Tizanidine 4 mg tablet taking every 8 hours as needed #60 refill 0 Pharmacy [facility] Please send today if possible, patient is out of this medicaiton Patient has been identified by name and birthdate. Duration of symptoms: N/A Person calling: self Call patient at: on cell [phone] (home) [phone] (work) [phone] (cell) Was an appointment scheduled: No Closing statement: Results or non-symptom based questions: Thank you for calling [facility], your call will be returned within the next business day. Rukhsana Guerrero documented in this encounterFairfield Medical Center06-28-2024 Telephone encounter Note * Telephone Encounter - Rukhsana Wood - 05/01/2024 11:47 AM EDT Tori is calling Ivette Grimes MD today to request a medication not on current med list: Tizanidine 4 mg tablet taking every 8 hours as needed #60 refill 0 Pharmacy [facility] Please send today if possible, patient is out of this medicaiton Patient has been identified by name and birthdate. Duration of symptoms: N/A Person calling: self Call patient at: on cell [phone] (home) [phone] (work) [phone] (cell) Was an appointment scheduled: No Closing statement: Results or non-symptom based questions: Thank you for calling [facility], your call will be returned within the next business day. Rukhsana Guerrero [facility]06-17-2024 Telephone encounter Note* Telephone Encounter - Priscila France RN - 04/20/2024 11:20 AM EDT Removed the Take one po qhs from the signature, that was on with the take one capsule by mouth two times a day. The patient has been identified by name and date of : Yes Caregiver verified no other encounters exist for this prescription request: Yes Caregiver confirmed with patient/requestor that no other refills are due, in the near future, with this provider at this time: Yes The last office visit in the department: 12/09/2023 Does the patient have a future office visit with this provider/department: No Visit date not found Requested Prescriptions Pending Prescriptions Disp Refills gabapentin (NEURONTIN) 300 mg capsule 180 capsule 1 Sig: Take 1 capsule by mouth two times a day for 180 days. Priscila France RN April 20, 2024 11:22 AM [facility]06-17-2024 Miscellaneous Notes* Telephone Encounter - Priscila France RN - 04/20/2024 11:20 AM EDT Removed the Take one po qhs from the signature, that was on with the take one capsule by mouth two times a day. The patient has been identified by name and date of : Yes Caregiver verified no other encounters exist for this prescription request: Yes Caregiver confirmed with patient/requestor that no other refills are due, in the near future, with this provider at this time: Yes The last office visit in the department: 12/09/2023 Does the patient have a future office visit with this provider/department: No Visit date not found Requested Prescriptions Pending Prescriptions Disp Refills gabapentin (NEURONTIN) 300 mg capsule 180 capsule 1 Sig: Take 1 capsule by mouth two times a day for 180 days. Priscila France RN April 20, 2024 11:22 AM documented in this encounterFairfield Medical Center06-17-2024 Telephone encounter Note * Telephone Encounter - Lubna Yoon LPN - 04/20/2024 10:55 AM EDT Prescription Refill Information The patient has been identified by name and date of : Yes Caregiver verified no other encounters exist for this prescription request: Yes Caregiver confirmed with patient/requestor that no other refills are due, in the near future, with this provider at this time: Yes The last office visit in the department: 12/09/2023 Does the patient have a future office visit with this provider/department: No Requested Prescriptions Pending Prescriptions Disp Refills gabapentin (NEURONTIN) 300 mg capsule 180 capsule 1 Sig: Take 1 capsule by mouth two times a day for 180 days. Take one po qhs Lubna Yoon LPN April 20, 2024 10:56 AM [facility]06-17-2024 Miscellaneous Notes* Telephone Encounter - Lubna Yoon LPN - 04/20/2024 10:55 AM EDT Prescription Refill Information The patient has been identified by name and date of : Yes Caregiver verified no other encounters exist for this prescription request: Yes Caregiver confirmed with patient/requestor that no other refills are due, in the near future, with this provider at this time: Yes The last office visit in the department: 12/09/2023 Does the patient have a future office visit with this provider/department: No Requested Prescriptions Pending Prescriptions Disp Refills gabapentin (NEURONTIN) 300 mg capsule 180 capsule 1 Sig: Take 1 capsule by mouth two times a day for 180 days. Take one po qhs Lubna Car, [employer]PA[employer] MANAGER April 20, 2024 10:56 AM documented in this encounterFairfield Medical Center06-12-2024 Telephone encounter Note * Telephone Encounter - Mirna Santos MA - 04/15/2024 12:33 PM EDT PA approved till 04/14/2025. Faxed approval to pharmacy and patient left Mirna Santos MA [facility]06-12-2024 Miscellaneous Notes* Telephone Encounter - Mirna Santos MA - 04/15/2024 12:33 PM EDT PA approved till 04/14/2025. Faxed approval to pharmacy and patient left Mirna Santos MA * Telephone Encounter - Mirna Santos MA - 04/15/2024 8:42 AM EDT Submitted PA through [employer] for Trulicity 0.75 mg. Form faxed with office notes and A1c results Mirna Santos MA documented in this encounterFairfield Medical Center06-12-2024 Telephone encounter Note * Telephone Encounter - Mirna Santos MA - 04/15/2024 8:42 AM EDT Submitted PA through [employer] for Trulicity 0.75 mg. Form faxed with office notes and A1c results Mirna Santos MA [facility]06-11-2024 Telephone encounter Note* Telephone Encounter - Sheron Anne - 04/14/2024 9:01 AM EDT Last: 02/15/2023 Noted-Follow up in 3 months. Consider transfer of care back to PCP if patient does well on the current dose of her medication atthe next visit. It does not appear that you have seen her since [facility]06-11-2024 Miscellaneous Notes* Telephone Encounter - Sheron Anne - 04/14/2024 9:01 AM EDT Last: 02/15/2023 Noted-Follow up in 3 months. Consider transfer of care back to PCP if patient does well on the current dose of her medication atthe next visit. It does not appear that you have seen her since documented in this encounterFairfield Medical Center06-03-2024 Telephone encounter Note * Telephone Encounter - Darrion Severino MA - 04/06/2024 2:26 PM EDT Reminder set for botox authorization to be submitted 05/31. Due for next visit 07/01/24. Previous 04/02/24. [facility]06-03-2024 Miscellaneous Notes* Telephone Encounter - Darrion Severino MA - 04/06/2024 2:26 PM EDT Reminder set for botox authorization to be submitted 05/31. Due for next visit 07/01/24. Previous 04/02/24. documented in this encounterFairfield Medical Center05-30-2024 Instructions* Patient Instructions* Fatuma Beckford PA-C - 04/02/2024 12:54 PM EDT Botox Home Instruction: Instruction after botox injection: - If you have any pain or swelling use ice, 20 min on and 20 min off. Do not rub or massage the area for 48 hrs. - If you have any neck stiffness, you may use heat and do stretching exercises. - This should improve over the next 5 days. - If it does not, call our office at for further instructions. documented in this encounterFairfield Medical Center05-30-2024 History of Present illness Narrative* Fatuma Beckford PA-C - 04/02/2024 12:33 PM EDT Follow-Up Onabotulinum Toxin A (BotoxTM) for Migraine Indication: Chronic Intractable Migraine Treatment #: 5 Referral Expiration: 04/02/2024 Prior to the initiation of the FIRST treatment with Onabotulinum Toxin A, the patient reported the following average headache frequency over the past 3 MONTHS: Number of moderate-severe migraine days/month: 30 (daily) Number of mild migraine days/month: 0 Number of headache free days/month: 0 (0 headache-free hours) Migraine severity: 08/13 After treatment with Onabotulinum Toxin A: Number of moderate-severe migraine days/month: 2 Number of mild migraine days/month: 0 Number of headache free days/month: 28 (672 headache-free hours) Migraine severity: 05/13 Patient reduction in overall migraine days: Yes Patient reduction in moderate-severe migraine days: Yes Patient reduction of headache hours by 100 hours or more: Yes (reduction of 672 hours) Individual has obtained clinical benefit deemed significant by individual or prescriber (Y/N): Yes Patient's quality of life and ability to perform ADLs has improved (Y/N): Yes Side effects: none Wearing off: Yes - 11 weeks after treatment The patient has been assessed for disorders which could contribute to breathing or swallowing difficulty, and there is no contraindication with PREEMPT Botox. There is no documented allergic reaction/hypersensitivity to any botulinum toxin and there is no active infection at proposed injection site. HEADACHE SCORES: 11/14/2022 02/13/2023 07/14/2023 VAHE - 2/7 SCORES VAHE-2 Score 1 2 4 VAHE-7 Score 2 6 12 12/06/2023 07/14/2023 02/13/2023 PHQ-9 Score 3 10 3 LMP (LMP Unknown) Patient name: Tori Gray : 1980 ALLERGIES Allergen Reactions Lidocaine Hives Steroids [Betametha* Hives UNIVERSAL PROTOCOL / SAFETY CHECKLIST Procedure: Onabotulinum toxin A for migraine Informed Consent Consent Obtained: Written [place] Protocol A moment to CARE was completed SIGN IN Personnel directly involved with the procedure wore the appropriate PPE Special Equipment: N/A Patient/Surrogate Stated/Verified: Patient name, Date of , Relevant allergies and Intended procedure TIME OUT Intended patient and procedure match the source document(s) Consent documented and matches the intended procedure No relevant labs, photos, and/or imaging studies were applicable for review. No correct side/site applicable for marking and visibility. No medications required for procedure. No fire risk assessment and interventions applicable. No implant(s) inserted. SIGN OUT No specimen collected. No instruments, equipment or retained foreign bodies applicable. Post-procedure follow-up management communicated and Plan of Care Visit completed when applicable Written Consent Obtained: Written LOT #: [id number] Expiration Date: Month: 6 Year: 2025 Second vial: LOT #: [id number] Expiration Date: Month: 6 Year: 2025 Injection Sites Left (Units) Left (Sites) Right (Units) Right (Sites) TOTAL (Units) Professor In Family Studies 5 1 5 1 10 Procerus Units: 5 Sites: 1 5 Frontalis 10 2 10 2 20 Temporalis 20 4 20 4 40 Occipitalis 15 3 15 3 30 Cervical PSP 10 2 10 2 20 Trapezius 15 3 15 3 30 Total Units used: 155 Total Units wasted: 45 Prior Therapies Duration of Use Dose Side effect Lyrica Excedrin Tylenol Naproxen Aimovig Topamax, Amitriptyline Propranolol Topiramate/ Trokendi XL Zomig Rizatriptan Imitrex Amerge Patient presents for 5th round of botox, tolerated procedure well without complications. Patient continuing to take topiramate and zomig for headaches. Switched to Nurtec 75mg for onset of headache, works well. Discussed common side effects, patient amenable. Will return in 12 weeks for repeat botox therapy. Reauthorization needed. Fatuma Beckford PA-C documented in this encounterFairfield Medical Center04-26-2024 Telephone encounter Note * Telephone Encounter - Alyssa Andrews LPN - 02/28/2024 1:21 PM EDT Patient MyChart message requesting the following refill Refill(s) Requested: Requested Prescriptions Pending Prescriptions Disp Refills tiZANidine (ZANAFLEX) 4 mg tablet 60 tablet 0 Sig: Take 1 tablet by mouth every 8 hours as needed. ALLERGIES Allergen Reactions Lidocaine Hives Steroids [Betametha* Hives (home) [phone] (work) [phone] (cell) Last Office Visit Date: 12/09/2023 Last Distance Health Visit: 07/15/2023 Future Appointment: Visit date not found The patients preferred pharmacy has been captured for this encounter? yes Request is for script(s) to be escript to pharmacy. Alyssa Andrews LPN [facility]04-26-2024 Miscellaneous Notes* Telephone Encounter - Alyssa Andrews LPN - 02/28/2024 1:21 PM EDT Patient MyChart message requesting the following refill Refill(s) Requested: Requested Prescriptions Pending Prescriptions Disp Refills tiZANidine (ZANAFLEX) 4 mg tablet 60 tablet 0 Sig: Take 1 tablet by mouth every 8 hours as needed. ALLERGIES Allergen Reactions Lidocaine Hives Steroids [Betametha* Hives (home) [phone] (work) [phone] (cell) Last Office Visit Date: 12/09/2023 Last Distance Health Visit: 07/15/2023 Future Appointment: Visit date not found The patients preferred pharmacy has been captured for this encounter? yes Request is for script(s) to be escript to pharmacy. Alyssa Andrews LPN documented in this encounterFairfield Medical Center03-20-2024 Miscellaneous Notes* Telephone Encounter - Parsons Stephanie - 01/22/2024 4:00 PM EDT Patient has been identified by name and date of : Yes Patient phones for refill(s): Patient called for a refill of Tizanidine 4 mg. (Not in refill list). Please send to [facility] pharmacy. Date of last office visit in primary care: 12/09/2023 Date of next office visit in primary care: none Please advise. Thank you. Stephanie Daysh. documented in this encounterFairfield Medical Center03-13-2024 Miscellaneous Notes* Telephone Encounter - Roya Jaramillo LPN - 01/15/2024 12:07 PM EDT Fax received- Anthony has been approved from 01/15/24 - 04/16/24. Roya Jaramillo LPN * Telephone Encounter - Angely Goldsmith LPN - 01/14/2024 5:30 PM EDT Faxed Prior authorization [phone]. Angely Goldsmith LPN * Telephone Encounter - Angely Goldsmith LPN - 01/09/2024 5:17 PM EST Prior Authorization from [employer] received for Nurtec 75 mg, EOC number [id number] dated 01/09/2024 requested a completed drug specific form to be completed, signed by provider faxed. Copy placed on MQ bin in the [place] location to review, sign. Angely Goldsmith LPN * Telephone Encounter - Roya Jaramillo LPN - 01/03/2024 3:39 PM EST Signed completed form faxed per request. Roya Jaramillo LPN * Telephone Encounter - Mariaa Ambrosio OCCA - 12/27/2023 9:01 AM EST [facility] Patient has [employer], form completed and OV notes attached. Placed on providers desk for signature when she returns to office 12/31. Once signed, please fax asindicated on form. Thank you. GRISELDA Jasmine documented in this encounterFairfield Medical Center02-22-2024 Instructions* Patient Instructions* Fatuma Beckford PA-C - 12/26/2023 10:12 AM EST Botox Home Instruction: Instruction after botox injection: - If you have any pain or swelling use ice, 20 min on and 20 min off. Do not rub or massage the area for 48 hrs. - If you have any neck stiffness, you may use heat and do stretching exercises. - This should improve over the next 5 days. - If it does not, call our office for further instructions. documented in this encounterFairfield Medical Center02-22-2024 History of Present illness Narrative* Fatuma Beckford PA-C - 12/26/2023 10:08 AM EST Follow-Up Onabotulinum Toxin A (BotoxTM) for Migraine Indication: Chronic Intractable Migraine Treatment #: 4 Referral Expiration: 04/02/2024 Prior to the initiation of the FIRST treatment with Onabotulinum Toxin A, the patient reported the following average headache frequency over the past 3 MONTHS: Number of moderate-severe migraine days/month: 30 (daily) Number of mild migraine days/month: 0 Number of headache free days/month: 0 (0 headache-free hours) Migraine severity: 08/13 After treatment with Onabotulinum Toxin A: Number of moderate-severe migraine days/month: 0 Number of mild migraine days/month: 0 Number of headache free days/month: 30 (720 headache-free hours) Migraine severity: 0/10 Patient reduction in overall migraine days: Yes Patient reduction in moderate-severe migraine days: Yes Patient reduction of headache hours by 100 hours or more: Yes (reduction of 720 hours) Individual has obtained clinical benefit deemed significant by individual or prescriber (Y/N): Yes Patient's quality of life and ability to perform ADLs has improved (Y/N): Yes Side effects: none Wearing off: Yes - 10 weeks after treatment The patient has been assessed for disorders which could contribute to breathing or swallowing difficulty, and there is no contraindication with PREEMPT Botox. There is no documented allergic reaction/hypersensitivity to any botulinum toxin and there is no active infection at proposed injection site. HEADACHE SCORES: VAHE - 2/7 SCORES 11/14/2022 02/13/2023 07/14/2023 VAHE-2 Score 1 2 4 VAHE-7 Score 2 6 12 PHQ-9 02/13/2023 07/14/2023 12/06/2023 Score 3 10 3 LMP (LMP Unknown) Patient name: Tori Gray : 1980 ALLERGIES Allergen Reactions Lidocaine Hives Steroids [Betametha* Hives UNIVERSAL PROTOCOL / SAFETY CHECKLIST Procedure: Onabotulinum toxin A for migraine Informed Consent Consent Obtained: Written [place] Protocol A moment to CARE was completed SIGN IN Personnel directly involved with the procedure wore the appropriate PPE Special Equipment: N/A Patient/Surrogate Stated/Verified: Patient name, Date of , Relevant allergies and Intended procedure TIME OUT Intended patient and procedure match the source document(s) Consent documented and matches the intended procedure No relevant labs, photos, and/or imaging studies were applicable for review. No correct side/site applicable for marking and visibility. No medications required for procedure. No fire risk assessment and interventions applicable. No implant(s) inserted. SIGN OUT No specimen collected. No instruments, equipment or retained foreign bodies applicable. Post-procedure follow-up management communicated and Plan of Care Visit completed when applicable Written Consent Obtained: Written LOT #: [id number] Expiration Date: Month: 6 Year: 2025 Second vial: LOT #: [id number] Expiration Date: Month: 6 Year: 2025 Injection Sites Left (Units) Left (Sites) Right (Units) Right (Sites) TOTAL (Units) Professor In Family Studies 5 1 5 1 10 Procerus Units: 5 Sites: 1 5 Frontalis 10 2 10 2 20 Temporalis 20 4 20 4 40 Occipitalis 15 3 15 3 30 Cervical PSP 10 2 10 2 20 Trapezius 15 3 15 3 30 Total Units used: 155 Total Units wasted: 45 Prior Therapies Duration of Use Dose Side effect Lyrica Excedrin Tylenol Naproxen Aimovig Topamax, Amitriptyline Propranolol Topiramate/ Trokendi XL Zomig Rizatriptan Imitrex Amerge Patient presents for 4th round of botox, tolerated procedure well without complications. Patient continuing to take topiramate and zomig for headaches. Switched to Amerge 2.5 mg, patient with fatty liver disease but specialist as okayed triptans. Noted that Amerge was not helpful for the migraines she had when the botox weared off at 11 weeks. Will write for Nurtec 75mg for onset of headache. Discussed common side effects, patient amenable. Will return in 12 weeks for repeat botox therapy. Willneed reauth at next appointment. Fatuma Beckford PA-C documented in this encounterFairfield Medical Center02-05-2024 Miscellaneous Notes* Telephone Encounter - Nirmala Storey LPN - 12/09/2023 6:36 PM EST Faxed to [facility]. * Telephone Encounter - Ivette Grimes MD - 12/09/2023 6:04 PM EST Order placed * Telephone Encounter - Nirmala Storey LPN - 12/09/2023 5:48 PM EST Please file mammo. For [facility] need to be mammo with jaquelin. After filed please fax to [facility] for patient. documented in this encounterFairfield Medical Center02-05-2024 History of Present illness Narrative* Ivette Grimes MD - 12/09/2023 5:29 PM EST Patient presents with: Diabetes HPI: Patient presents today for office visit for follow up. Hb was ok per [facility] lab Still has menses. DM:not checking. Sugars have been good. Bp is ok No chest pain No shortness of breath . No swelling. No dizziness or lightheadedness. Over due ue for botox. Botox normall does help. Amergy not helping. MEDICATIONS: Current Outpatient Medications Medication Sig tiZANidine (ZANAFLEX) 4 mg tablet Take 1 tablet by mouth every 8 hours as needed. topiramate (TOPAMAX) 100 mg tablet Take 1 tablet by mouth two times a day. FLUoxetine (PROZAC) 20 mg capsule Take 1 capsule by mouth once daily. naratriptan (AMERGE) 2.5 mg tablet Take 1 tablet (2.5 mg) by mouth as directed. at the onset of headache; if headache returns or does not fully resolve, the dose may be repeated after 4 hours; do notexceed five(5) mg in 24 hours. NO more than 10 doses a month. dulaglutide (TRULICITY) 0.75 mg/0.5 mL pen injector Inject 0.75 mg subcutaneously one time a week. Inject dose once per week. Discard Pen After albuterol HFA (VENTOLIN HFA) 90 mcg/actuation inhaler Inhale 2 Puffs as instructed every 4 hours asneeded for wheezing/shortness of breath. fexofenadine (ALMA ALLERGY) 180 mg tablet Take 1 tablet by mouth once daily. albuterol HFA (VENTOLIN HFA) 90 mcg/actuation inhaler Inhale 2 Puffs as instructed every 4 hours asneeded for wheezing/shortness of breath. gabapentin (NEURONTIN) 300 mg capsule Take 1 capsule by mouth twice daily for 180 days. Take one poqhs Ipratropium [place] (ATROVENT) 21 mcg (0.03 %) nasal spray Use 2 Sprays in the nose every 12 hours. omeprazole (PRILOSEC) 20 mg capsule Take 1 capsule by mouth daily before breakfast. 1/2 hr before meal. MAGNESIUM ORAL Take by mouth. meclizine (ANTIVERT) 25 mg tab Take 25 mg by mouth once daily. Takes two tabs in am lisinopril (ZESTRIL, PRINIVIL) 10 mg tablet Take 1 tablet by mouth once daily. BIPAP levonorgestrel (KYLEENA) 17.5 mcg/24 hrs (5 yrs) 19.5 mg IUD 1 Each by INTRAUTERINE route as directed. Herrick-3 Fatty Acids (FISH OIL) 500 mg cap Take 1 capsule by mouth once daily. blood sugar diagnostic (BLOOD GLUCOSE TEST) test strip Test blood sugar(s) 1 times daily. Dx: Type 2 DM - Controlled E11.9 Insulin: Yes Lancets lancets Test blood sugar(s) 1 times daily. Dx: Type 2 DM - Controlled E11.9 Insulin: No [id number] tab Take 1 tablet by mouth once daily. No current facility-administered medications for this visit. ALLERGIES: ALLERGIES Allergen Reactions Lidocaine Hives Steroids [Betametha* Hives PAST MEDICAL HISTORY Diagnosis Date Acute cholecystitis Cholecystitis Anxiety 06/07/2014 Chronic back pain Kidney stones LETITIA treated with BiPAP Type 2 diabetes mellitus (HCC) PAST SURGICAL HISTORY Procedure Laterality Date DELIVERY ONLY 2006 , low cervical INSERT INTRAUTERINE DEVICE 10/19/08 mirena LAPAROSCOPY SURG CHOLECYSTECTOMY 2006 Cholecystectomy, lap (Rowena Monet) PAST SURGICAL HISTORY OF 2019 stent into kidney REMOVE IUD 07/13/2010 FAMILY HISTORY Problem Relation Age of Onset Alcohol/Drug Mother Heart Father [place] Cancer Father PANCREATIC CANCER Diabetes Father Coronary Artery Disease Father Anxiety disorder Sister Depression Sister Depression Brother Cancer Maternal Grandmother LUNG CANCER Diabetes Maternal Grandfather Heart Paternal Grandmother TRIPLE BYPASS SURGERY Social History Tobacco Use Smoking status: Never Smokeless tobacco: Never Vaping Use Vaping Use: Never used Substance Use Topics Alcohol use: No Drug use: No Reviewed current medications, allergies, past medical history, surgical history, family history andsocial history today. REVIEW OF SYSTEMS All other reviewed and negative other than HPI. HEALTH MAINTENANCE: Reviewed health maintenance issues today and recommended the following in detail. Covid-19 Vaccine( season) due on 07/05/2023 Diabetic Foot Exam-checked in June Mammogram Screening due on 08/10/2023 Depression Assessment due on 11/04/2023 Pap Testing due on 12/18/2023-seeoing Dr Camacho on the HPV Testing due on 12/18/2023 VITALS: BP 124/62 Pulse 60 Wt 122.9 kg (271 lb) LMP (LMP Unknown) SpO2 97% BMI 42.44 kg/m Last 4 Encounter Wt Readings: Date: Wt: 12/09/2023 122.9 kg (271 lb) 11/06/2023 130.2 kg (287 lb) 09/13/2023 127.9 kg (282 lb) 06/07/2023 0 kg () PHYSICAL EXAMINATION: General appearance: Well appearing, alert, [...] discoloration, clubbing or cyanosis. Good capillary refill. ASSESSMENT/PLAN: 1. Essential (primary) hypertension - ICD9: 401.9, ICD10: I10 (primary diagnosis) - Controlled - Continue current medications 2. LETITIA (obstructive sleep apnea) - ICD9: 327.23, ICD10: G47.33 - stable. Not using bipap. 3. Fatty liver - ICD9: 571.8, ICD10: K76.0 - stable. 4. Vertigo - ICD9: 780.4, ICD10: R42 - no complaints. 5. Anxiety - ICD9: 300.00, ICD10: F41.9 - stable. Ivette Grimes documented in this encounterFairfield Medical Center12-24-2023 Discharge summary Author Luan Zepeda [facility] October 27, 2023 3:44pm Note Date/Time October 27, 2023 3:16pm [facility] Medical Records Department [address] [place] [address] Emergency Department Summary 10/27/23 MR#: [id number] Acct: [id number] Name: TORI GRAY Rep #:[id number] : 1980 43 From: Luan Barry PCP: Dr. Ivette Grimes MD Status:PRE E R Location: ED HPI History of Present Illness Chief Complaint: Ear Problem [facility] Medical History Abnormal ECG Acute bronchitis Acute cholecystitis Acute kidney injury Acute respiratory insufficiency Anxiety Back pain Calculus of left kidney Degeneration of intervertebral disc of lumbosacral region Disc displacement, lumbar Dyspnea Dysuria Elevated triglycerides with high cholesterol Fatty liver History of obstructive sleep apnea History of stent into kidney Hydronephrosis, left Hydroureter, left Hypertension 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 Left shoulder pain Left shoulder strain Left upper extremity numbness Left upper quadrant abdominal pain Lumbar facet arthropathy Lumbosacral spondylosis Microalbuminuria Migraines Nausea Nephrolithiasis Nonalcoholic hepatosteatosis Obesity Obstructive Sleep Apnea-Hypopnea Syndrome LETITIA (obstructive sleep apnea) Pain of left scapula Prolonged Q-T interval on ECG Pyelonephritis Radiculopathy of lumbosacral region Segmental and somatic dysfunction of cervical region Segmental and somatic dysfunction of lumbar region Segmental and somatic dysfunction of pelvic region Segmental and somatic dysfunction of thoracic region Type 2 diabetes mellitus Type 2 diabetes mellitus with microalbuminuria Type 2 diabetes mellitus without complication, with long-term current use of insulin Urinary tract infection Vertigo Home Medications blood sugar diagnostic (Blood Glucose Test strips) #10 ea 04/26/20 [History Last Taken Unknown] ipratropium bromide 21 mcg (0.03 %) nasal spray 2 spray intranasal BID wkobuaria11/20/20 [History Last Taken 08/03/23] omega-3 fatty acids 1,000 mg capsule (Fish Oil Concentrate) 1,000 mg PO DAILY supplement 02/21/21 [History Last Taken 08/05/23] albuterol sulfate 90 mcg/actuation aerosol inhaler 2 puff inhalation Q4H PRN shortness of breath or wheezing 08/10/22 [History Last Taken 08/03/23] dulaglutide 0.75 mg/0.5 mL subcutaneous pen injector (Trulicity) 0.75 mg subcut QWEEK diabetes 08/10/22 [History Last Taken 07/29/23] fexofenadine 180 mg tablet (Allergy Relief (fexofenadine)) 180 mg PO DAILY allergies 08/10/22 [History Last Taken 08/05/23] levonorgestrel 17.5 mcg/24 hrs (5yrs) 19.5mg intrauterine device 1 device intrauterine ONCE control 08/10/22 [History Last Taken Unknown] tizanidine 4 mg tablet 4 mg PO Q8H PRN Muscle Spasm 08/10/22 [History Last Taken 08/04/23] omeprazole 20 mg capsule,delayed release 20 mg PO DAILY PRN gerd 08/16/22 [History Last Taken Unknown] topiramate 100 mg tablet 100 mg PO BID seizures 08/16/22 [History Last Taken 08/05/23] fluoxetine 20 mg capsule 20 mg PO DAILY mental health 12/28/22 [History Last Taken 08/04/23] gabapentin 300 mg capsule 300 mg PO BID nerve pain 12/28/22 [History Last Taken 08/05/23] lisinopril 10 mg tablet 10 mg PO DAILY blood pressure 12/28/22 [History Last Taken 08/05/23] ondansetron HCl 4 mg tablet 4 mg PO Q8H nausea 12/28/22 [History Last Taken Unknown] rizatriptan 10 mg tablet 10 mg PO ONCE migraines 12/28/22 [History Last Taken 08/05/23] amoxicillin 875 mg-potassium clavulanate 125 mg tablet 1 tab PO BID #14 tabs 10/27/23 [Rx Last Taken Unknown] ofloxacin 0.3 % ear drops 10 drp LEFT EAR DAILY 7 days #10 mL 10/27/23 [Rx Last Taken Unknown] Allergy/AdvReac Type Severity Reaction Status Date / Time Corticosteroids Allergy Hives Verified 09/12/23 10:35 (Glucocorticoids) [steroids] lidocaine AdvReac Intermediate Hives Verified 09/12/23 10:35 Family History Father Diabetes Myocardial infarction Pancreatic cancer Mother Alcohol abuse Drug abuse Grandfather Diabetes Grandmother Lung cancer Grandmother Heart disease Triple bypass surgery Surgical History H/O: (~2005) History of urethral stent (~2018) Hx laparoscopic cholecystectomy (~2005) Social History Smoking Status: Never smoker alcohol intake: never substance use type: does not use caffeine: Yes Type: coffee what type of physical activity do you participate in: walking frequency: daily seatbelt use: always do you feel safe at home: Yes EXAM Physical Exam Const Vital Signs: 10/27/23 15:06 Temperature 97.0 F L Temperature Source Temporal Pulse Rate 80 Respiratory Rate 16 Blood Pressure 173/90 H Blood Pressure Mean 117 Pulse Ox 98 Oxygen Delivery Method Room Air MDM MDM MDM Narrative Medical decision making narrative: HISTORY OF PRESENT ILLNESS: 43-year-old female here with left ear pain. No water exposure noted., REVIEW OF SYSTEMS: Pertinent positives: Ear pain, decreased hearing Pertinent negatives: Sore throat, nausea vomiting PHYSICAL EXAM: Nursing triage notes reviewed, Vital signs reviewed Constitutional: please see mdm HENT: MMM Right TM clear, left TM unable to visualize secondary to extensive external auditory canal swelling and purulent discharge consistent with otitis externa no mastoid tenderness. Eyes: Pupils equal round and reactive to light, Extraocular muscles intact Skin: No rash or lesions noted MEDICAL DECISION MAKING: Chief Complaint: Ear pain External records reviewed: No recent evaluations for similar Factors affecting care: Type 2 diabetes MDM Narrative: Patient was hemodynamically stable, afebrile, nontoxic-appearing. Exam consistent with otitis externa. I considered the following differential diagnosis: Otitis media, otitis externa, mastoiditis No evidence of mastoiditis on exam. Will give ofloxacin drops and prophylactic oral Augmentin to cover any middle ear infection that may be undiagnosed given significant swelling of left external auditory canal and history of diabetes. The patient and/or family, caregivers express understanding. The patient and/or family, caregivers agrees with the plan. Shared decision making: I will have a discussion with the patient and or visitors regarding risk/benefits of further testing or admission. They will be made aware of of the risk/benefits inherent in this decision they will be given the opportunity to voice understanding. Total critical care time today provided was at least 0 minutes. This excludes separately billable procedures. Critical care time (if documented) is secondary to the patient having high probability of clinically significant/life threatening deterioration in the patient's condition which required my urgent intervention. Impression: 1. Ear pain 2. History of diabetes 3. Otitis externa Dispo: Discharge Discharge Plan Triage Chief Complaint: Ear Problem ED Provider: Luan Zepeda Dx/Rx/DC Orders Clinical Impression: Otitis externa Instructions: ED External Ear Infection (Adult) Prescriptions: New amoxicillin-pot clavulanate 875-125 mg tablet 1 tab PO BID Qty: 14 0RF ofloxacin 0.3 % drops 10 drp LEFT EAR DAILY 7 Days Qty: 10 0RF No Action (DME) blood sugar diagnostic [Blood Glucose Test] Strip See Rx Instructions .ROUTE .MEDSUPPLY Qty: 10 Rx Instructions: As directed ipratropium bromide 0.03 % spray,non-aerosol 2 spray INTRANASAL BID Rx Instructions: administer into each nostril omega-3 fatty acids [Fish Oil Concentrate] 1,000 mg capsule 1,000 mg PO DAILY Trulicity 0.75 mg/0.5 mL pen injector 0.75 mg subcut QWEEK Patient Comments: INJECT 1 PENaSUBCUTANEOUSLY ONCE PER WEEK fexofenadine [Allergy Relief (fexofenadine)] 180 mg tablet 180 mg PO DAILY levonorgestrel 17.5 mcg/24 hrs (5 yrs) 19.5 mg intrauterine device 1 device intrauterine ONCE Rx Instructions: as a single dose omeprazole 20 mg capsule,delayed release(DR/EC) 20 mg PO DAILY PRN (Reason: gerd) Patient Comments: Take 1 capsule by mouthndaily before breakfast. 1/2 hr before meal. topiramate 100 mg tablet 100 mg PO BID Patient Comments: Take 1 tablet by mouthitwice daily. gabapentin 300 mg capsule 300 mg PO BID Patient Comments: TAKE 1 CAP 3 TIMES DAILY.CIF AFTER 2 DAYS SYMPTOMS PERSIST, INCREASE TO 2 CAPS AT BEDTIME lisinopril 10 mg tablet 10 mg PO DAILY Patient Comments: Take 1 tablet by mouthEonce daily. rizatriptan 10 mg tablet 10 mg PO ONCE Patient Comments: Take 1 tablet by mouth astneeded (at onset ofdheadache. May repeatfafter 2 hours.). Do not exceed 30 mg per day. ondansetron HCl 4 mg tablet 4 mg PO Q8H Patient Comments: TAKE 1 TABLET BY MOUTHEEVERY 8 HOURS NEEDED FOR NAUSEA OR VOMITING fluoxetine 20 mg capsule 20 mg PO DAILY Patient Comments: Take 1 capsule by mouthConce daily. albuterol sulfate 90 mcg/actuation HFA aerosol inhaler 2 puff INHALATION Q4H PRN (Reason: shortness of breath or wheezing) tizanidine 4 mg tablet 4 mg PO Q8H PRN (Reason: Muscle Spasm) Primary Care Provider: Ivette Grimes Referrals: Ivette Grimes MD [Primary Care Provider] - Activity Restrictions/Additional Instructions: Thank you for trusting us with your care today! Please take Tylenol (2 pills, 650 mg), ibuprofen (2 pills, 400 mg) every 6 hoursas needed for pain and fever control. Please take Augmentin as prescribed. Please use eardrops as prescribed. Please return to the emergency department if your symptoms change or worsen. Please follow with your primary care physician for further outpatient evaluationand management. Disposition Disposition: Home, Self Care What to do if you have Problems For any increased pain, shortness of breath, bleeding, nausea or vomiting, chestpain, or any unexpected problems, contact your Primary Care Provider. Call [facility] ([phone]) or report to the closest Emergency Room. Call 911 if necessary. 10/27/23 9460 <Electronically signed by Luan Zepeda DO> Cosigner Signature (if applicable): CC: Dr. Ivette Grimes MD ~ Signed [facility] Work Phone: [phone]) 874-292912-12-2023 Miscellaneous Notes* Telephone Encounter - Fatuma Beckford PA-C - 10/15/2023 8:13 AM EST Patient was given three month supply on 09/13/23 [facility] Miscellaneous Notes* Telephone Encounter - Quinn Lazo - 10/14/2023 1:43 PM EST Patient phones requesting refills as follows: Requested Prescriptions Pending Prescriptions Disp Refills topiramate (TOPAMAX) 100 mg tablet 60 tablet 5 Sig: Take 1 tablet by mouth two times a day. APRIL 07/15/23 NOV 12/09/23 Please review and advise. Quinn Lazo documented [facility] this [facility]12-[facility]-2023 Miscellaneous Notes* Telephone Encounter - Adriana Swanson MA - 10/14/2023 9:48 AM EST Patient has been identified by name and date of : Yes Requested Prescriptions Pending Prescriptions Disp Refills tiZANidine (ZANAFLEX) 4 mg tablet 60 tablet 0 Sig: Take 1 tablet by mouth every 8 hours as needed. RX INSTRUCTIONS: Patient aware RX will be sent to pharmacy. No need to notify patient. Patient last office visit: 07/15/23 Patient next office visit: 12/09/23 Adriana Swanson MA * Telephone Encounter - Stephanie Parsons - 10/14/2023 9:33 AM EST Patient calling for a refill for Tizanidine 4 mg. (Not on refill list). Please send to [facility] pharmacy. TY documented in this [facility]11-21-2023 Miscellaneous Notes* Telephone Encounter - Ry Wang - 09/24/2023 8:20 AM EST Patient's request for medication is as follows: Requested Prescriptions Pending Prescriptions Disp Refills FLUoxetine (PROZAC) 20 mg capsule 90 capsule 0 Sig: Take 1 capsule by mouth once daily. Prescription(s) as above. Please process accordingly. Ry Wang documented [facility] this [facility]11-06-2023 Miscellaneous Notes* Telephone Encounter - Quinn Lazo - 09/09/2023 1:21 PM EST Patient phones requesting refills as follows: Requested Prescriptions Pending Prescriptions Disp Refills ZOLMitriptan (ZOMIG) 5 mg tablet 9 tablet 11 Sig: Take 1 tablet (5 mg) by mouth once daily. prn APRIL 07/15/23 12/09/23 Please review and advise. Quinn Lazo documented [facility] this [facility]10-23-2023 Miscellaneous Notes* Telephone Encounter - Nakia Caraballo RN - 08/26/2023 11:58 AM EDT Patient scheduled for 09/13/23 at 2 pm for botox. Latonia Caraballo RN, BSN documented in this [facility]Fair[facility]10-20-2023 Miscellaneous Notes* Telephone Encounter - Nirmala Storey LPN - 08/23/2023 2:40 PM EDT Completed and faxed as requested. * Telephone Encounter - Dennise Robles - 08/20/2023 11:55 AM EDT Type of form: 2022 Healthy living program Form received via mail When form is completed, Fax form to [phone] Form has been forwarded to Physician Desk: Dr. Sydney Robles documented in this [facility]Fair[facility]09-01-2023 Miscellaneous Notes* Telephone Encounter - Quinn Lazo LPN - 07/05/2023 1:44 PM EDT Patient phones requesting refills as follows: Requested Prescriptions Pending Prescriptions Disp Refills albuterol HFA (VENTOLIN HFA) 90 mcg/actuation inhaler 18 g 6 Sig: Inhale 2 Puffs as instructed every 4 hours as needed for wheezing/shortness of breath. APRIL 06/06/23 12/09/23 Please review and advise. Quinn Lazo LPN documented in this [facility]Fair[facility]09-01-2023 Miscellaneous Notes* Telephone Encounter - ZamanJenni - 07/05/2023 8:25 AM EDT Patient has been identified by name and date of : Yes, Provider SYDNEY Pharmacy phones for refill(s): Requested Prescriptions Pending Prescriptions Disp Refills fexofenadine (ALMA ALLERGY) 180 mg tablet 90 tablet 3 Sig: Take 1 tablet by mouth once daily. albuterol HFA (VENTOLIN HFA) 90 mcg/actuation inhaler 18 g 6 Sig: Inhale 2 Puffs as instructed every 4 hours as needed for wheezing/shortness of breath. Date of last office visit in primary care: 06/06/23 Last 2 Encounter Wt Readings: Date: Wt: 06/07/2023 0 kg () 06/06/2023 132 kg (291 lb) Previous labs/tests for medication: Not applicable Please advise. Thank you. Jenni Zaman documented in this encounterFair[facility]08-16-2023 History of Present illness Narrative* Rosetta Dias LPN - 06/19/2023 4:[address] Delgado, Jemmae was provided with powerstep original inserts, size 11, and instructed/educated in its application, wear, and care. All questions were answered, and patient was able to demonstrate competence with the necessary skills to utilize the above equipment. Per Dr. Delgado, Lorilie was provided with achilles gel sleeve, size L/XL, and instructed/educatedin its application, wear, and care. All questions were answered, and patient was able to demonstrate competence with the necessary skills to utilize the above equipment. Rosetta Dias LPN * Umesh Delgado - 06/19/2023 3:57 PM EDT Images from the original note were not included. Initial Podiatric Office Visit: Chief Complaint: This 43 year old female who presents with chief complaint:right heel pain HPI Patient presents to clinic for evaluation of right foot She complains of right heel pain that has been present for a few weeks. She states recently the pain was so bad so she went to the urgent care. She was offered a boot but she declined because she felt the boot would make her pain worse. She declined the boot but the very next day, she went to work and the pain was more severe so she asked for the boot. She started using the boot. She states she uses the boot and that does help. She does report that since using the boot, she has noticed the leftfoot is starting to bother her. Patient does take tylenol intermittently which will often take the severe pain away. Patient states the pain is most severe whenever she is working PAIN EVALUATION 06/18/2023 1628 06/19/2023 1531 Pain Level: 8 8 Pain Location: -- Foot-Right Description: Sharp;Sore;Tingling Sharp Duration Amount of Time: -- 3 Duration Units: Hours Weeks Frequency: Continuous Continuous Intervention/Comfort measure: Cold Splinting Comments: -- pt has been wearing a boot at work with relief Hemoglobin A1C Date Value 03/04/2023 6.1 08/08/2022 5.3 % 02/07/2022 5.1 01/12/2021 5.1 08/31/2020 6.2 10/09/2019 6.2 12/11/2018 7.6 % 05/28/2014 5.4 % 02/22/2014 5.3 % 12/05/2012 5.9 % HBA1C, Moreno (%) Date Value 01/23/2010 5.8 PCP: Ivette Grimes MD PAST MEDICAL HISTORY Diagnosis Date Acute cholecystitis Cholecystitis Anxiety 06/07/2014 Chronic back pain Kidney stones LETITIA treated with BiPAP Type 2 diabetes mellitus (HCC) Current Outpatient Medications Medication Sig FLUoxetine (PROZAC) 20 mg capsule Take 1 capsule by mouth once daily. gabapentin (NEURONTIN) 300 mg capsule Take 1 capsule by mouth twice daily for 180 days. Take one poqhs tiZANidine (ZANAFLEX) 4 mg tablet Take 1 tablet by mouth every 8 hours as needed. Ipratropium [place] (ATROVENT) 21 mcg (0.03 %) nasal spray Use 2 Sprays in the nose every 12 hours. topiramate (TOPAMAX) 100 mg tablet Take 1 tablet by mouth twice daily. omeprazole (PRILOSEC) 20 mg capsule Take 1 capsule by mouth daily before breakfast. 1/2 hr before meal. MAGNESIUM ORAL Take by mouth. ZOLMitriptan (ZOMIG) 5 mg tablet Take 1 tablet by mouth once daily. prn meclizine (ANTIVERT) 25 mg tab Take 25 mg by mouth once daily. Takes two tabs in am lisinopril (ZESTRIL, PRINIVIL) 10 mg tablet Take 1 tablet by mouth once daily. BIPAP dulaglutide (TRULICITY) 0.75 mg/0.5 mL pen injector Inject 0.75 mg subcutaneously one time a week. Inject dose once per week. Discard Pen After albuterol HFA (VENTOLIN HFA) 90 mcg/actuation inhaler Inhale 2 Puffs as instructed every 4 hours asneeded for wheezing/shortness of breath. fexofenadine (ALMA ALLERGY) 180 mg tablet Take 1 tablet by mouth once daily. levonorgestrel (KYLEENA) 17.5 mcg/24 hrs (5 yrs) 19.5 mg IUD 1 Each by INTRAUTERINE route as directed. Herrick-3 Fatty Acids (FISH OIL) 500 mg cap Take 1 capsule by mouth once daily. Lancets lancets Test blood sugar(s) 1 times daily. Dx: Type 2 DM - Controlled E11.9 Insulin: No [id number]-Hsl-Fe-FA tab Take 1 tablet by mouth once daily. blood sugar diagnostic (BLOOD GLUCOSE TEST) test strip Test blood sugar(s) 1 times daily. Dx: Type 2 DM - Controlled E11.9 Insulin: Yes (Patient not taking: Reported on 06/07/2023) No current facility-administered medications for this visit. ALLERGIES Allergen Reactions Lidocaine Hives Steroids [Betametha* Hives PAST SURGICAL HISTORY Procedure Laterality Date DELIVERY ONLY 2006 , low cervical INSERT INTRAUTERINE DEVICE 10/19/08 mirena LAPAROSCOPY SURG CHOLECYSTECTOMY 2006 Cholecystectomy, lap (Rowena Monet) PAST SURGICAL HISTORY OF 2019 stent into kidney REMOVE IUD 07/13/2010 FAMILY HISTORY Problem Relation Age of Onset Alcohol/Drug Mother Heart Father [place] Cancer Father PANCREATIC CANCER Diabetes Father Coronary Artery Disease Father Anxiety disorder Sister Depression Sister Depression Brother Cancer Maternal Grandmother LUNG CANCER Diabetes Maternal Grandfather Heart Paternal Grandmother TRIPLE BYPASS SURGERY Social History Tobacco Use Smoking status: Never Smokeless tobacco: Never Vaping Use Vaping Use: Never used Substance Use Topics Alcohol use: No Drug use: No REVIEW OF SYSTEMS GENERAL: Negative for Malaise, significant weight loss, fever RESPIRATORY: Negative for cough, wheezing and shortness of breath CARDIOVASCULAR: Negative for chest pain, leg swelling and palpitations GI: Negative for abdominal discomfort, blood in stools or black stools and change in bowel habits : Negative for dysuria, frequency and incontinence MUSCULOSKELETAL: Negative for joint pain or swelling, back pain, and muscle pain. SKIN: Negative for lesions, rash, and itching. HEMATOLOGY/LYMPHOLOGY Negative for prolonged bleeding, bruising easily, and swollen nodes. ENDOCRINE: Negative for cold or heat intolerance, polyuria, polydipsia and goiter. NEURO: negative Physical Exam: Constitutional: Pt is a well developed 43 year old female who is alert, oriented and cooperative Eyes: Following during examination. No redness or drainage. Respiratory: RR normal and nonlabored. Even breathing. No evidence of distress or shortness of breath. Psychology: Patient is engaged during conversation. Normal affect and mood. Does not appear depressed or anxious during encounter. Vascular: Dorsalis pedis and posterior tibial pulses palpable as b/l Capillary Fill time < 5 seconds to digits 1-5 b/l Skin temperature warm to warm proximal to distal b/l Hair growth present to digits Neurological: intact light touch/epicritic sensation b/l - tinel to b/l feet intact protective sensation no significant neurological deficits Dermatological: Nails 1-5 b/l appear normal. Webspaces clean and dry 1-4 b/l. Skin appears well hydrated and supple. good color, texture, turgor. No open lesions present. No callosities present. Musculoskeletal/Orthopaedic: Patient has pain to palpation of b/l medial calcaneal tubercle Foot type is prontated structurally AJ ROM is full with knee extended and flexed 1st MPJ is full when loaded and no pain or crepitus are noted with ROM. MTJ, STJ are full and free of pain and crepitus. +5/5 muscle strength dorsiflexion, plantarflexion, inversion, eversion b/l Radiographs: 3 views right foot reviewed June 19, 2023: I have personally reviewed and interpreted these XR myself: no acute fracture. Posterior heel spur present ASSESSMENT: (M72.2) Plantar fasciitis (primary encounter diagnosis) (M77.31) Calcaneal spur of right foot PLAN: 1. Initial Office Visit - A thorough review of the patient's PMH and Podiatric physical exam was completed. 2. Patient advised to perform stretching excercises, icing, and to make appropriate shoe gear changes to include wearing athletic-type shoes with supportive insoles. No barefoot walking. Patient alsogiven written instructions on how to correctly perform the stretching of the achilles tendon/calf st retches, and the heel spur/plantar fasciitis regimen. 3. Patient advised to seek wide, deep toe box, accomodative, comfortable, lace- up, athletic/walkingtype footwear that includes motion control characteristics for support and cushion that need to be worn at all times when weight-bearing. Shoes should be tested for torsional stability as well as proper bending at the toebox rather than at the midfoot. Good quality shoes such as, but not limited to, New Balance or Asics are examples of more proper foot gear. 4. Patient recommended to get powerstep insoles for proper support of the arch in order to alleviate the tension and stress on the plantar fascia associated with normal daily walking. Patient advisedthat these modalities used in conjunction with stretching and icing are able to alleviate most symptoms from this condition. 5. RTC in 6 weeks for f/u, discussed next step of custom FO, night splint or injection if symptoms do not markedly improve 6. Discussed posterior heel spur. Recommend gel padding. If pain persists, could consider spur resection MARK Stein DPM Podiatry [address] [facility] [address] Dept: [phone] Dept * Keri Parker RN - 06/19/2023 3:30 PM EDT Patient presents with: Right Foot - New, Pain: Bone spurs AMB ROOMING INTAKE FLOWSHEET DATA Pain Pain Level: 8 Pain Location: Foot-Right Description: Sharp Duration Amount of Time: 3 Duration Units: Weeks Frequency: Continuous Intervention/Comfort measure: Splinting Comments: pt has been wearing a boot at work with relief Been wearing a walking boot with some relief, but now has developed left foot pain [facility]08-16-[facility]23 Instructions* Patient Instructions* Umesh Delgado - 06/19/2023 4:07 PM EDT Images from the original note were not included. What is Plantar Fasciitis? Plantar fasciitis is the most common cause of heel pain. The pain is caused by inflammation of the plantar fascia. If you strain your plantar fascia, it becomes weak, swollen and irritated (inflamed). The resulting pain may be isolated in the heel or may appear at different points on the bottom of the foot, from time to time; it may occur in one foot or both. Some think that plantar fasciitis pain is caused by irritation of nerves from tissue swelling or inflammation, but it is debatable. Plantar fasciitis is common in middle-aged people; it also occurs in younger people who are on their feeta lot, such as athletes or soldiers. The plantar fascia is a strong band of connective tissue that extends from the base of the toes, along the bottom of the foot, to the bottom of the heel (calcaneous bone); it acts like a bowstring tomaintain the arch of the foot. What are heel spurs? The inflammatory reaction of the heel bone may produce spike-like projections of new bone, called heel spurs. The spurs sometimes show on X-rays. They neither cause the initial pain nor do they causethe initial problem. However, later, having to walk on spurs may cause sharp pain. What causes plantar fasciitis? Plantar fasciitis is caused by straining the ligament that supports your arch. Repeated strain can cause tiny tears in the ligament. These lead to pain and swelling. During walking, the plantar fascia experiences tension up to twice the body weight with each step. While this is normal, those who spend much time on their feet, such as nurses, operations vocational instructor/waiters, andmail carriers, often experience plantar fasciitis. Athletes involved in tennis or other racquet sports, race walking, jogging or running also show a higher incidence of plantar fasciitis than do those participating in other activities. Thus, it's clear that plantar fasciitis is predominantly an overuse injury. In fact, any activity that results in prolonged tension and stress on the plantar fascia may cause plantar fasciitis. It is possible that changes in footwear may play a role in causing plantar fasciitis, no matter what activity is occurring. Those who are overweight are prone to plantarfasciitis. This is true even for sedentary people who get little physical activity. Abnormalities of the foot and ankle joints may predispose some individuals to development of plantar fasciitis (spec ifically, over pronation of the subtalar joint). Contributing Factors * Flat feet * Toe running, hill running * Sudden weight increase * High-arched, rigid feet * Soft terrain, e.g. running on sand * Obesity * Pronated feet (rolled inward) * Sudden increase in activity* Family tendency * Poor shoe support * Worn out or poorly fitted shoes * Increasing age * Walking,standing or running for long periods of time, especially on hard surfaces. How is the Injury Treated? Rest Your Feet: Limit, or if possible, stop activities that are causing your heel pain. Try to avoid running or walking on hard surfaces, such as concrete. Use pain as your guide. If your foot is toopainful, rest it. Ice: Ice the sore area for 30 to 60 minutes, several times a day, to reduce inflammation and relieve pain. Apply a plastic bag of crushed ice (or a bag of frozen peas) over a towel. Ice the sore areafor 15 minutes after activity/exercise. Application of heat is not generally recommended, as heat ex pands the bone and connective tissue, perhaps exerting greater pressure on nerves and thereby increasing pain. If heat is used, follow it with ice. Medication: If your condition developed recently, anti-inflammatory/analgesic medication, combined with heel pads (see below) may be all that is necessary to relieve pain and to reduce inflammation. If no pain relief has occurred after 2- 3 weeks, however, your doctor may inject either cortisone or local anesthetic directly into the tender area. Exercises: Do simple exercises, such as calf stretches and towel stretches (see below) several times a day, especially when you first get up in the morning. These can help your ligament become more flexible and strengthen the muscles that support your arch. Shoes: Poorly fitting shoes can cause plantar fasciitis. The best type of shoe to wear is a good walking or running shoe with good shock absorption and excellent arch support. You should choose the one that fits the best. [place] with your athletic shoes to find a pair that is comfortable and causes fewer symptoms. Put your shoes on as soon as you get out of bed; going barefoot or wearing slippers may make your pain worse. Good brands include (but are not limited to): New Balance, Asics, Saucony, SAS and Merrel s. Taping: Your doctor may tape your foot to maintain the arch. This takes some of the tension off theplantar fascia. Weight Loss: If your weight is putting extra stress on your feet, your doctor may encourage you to try a weight-loss program. Orthotics: An orthotic insole is a molded piece of rubber, plastic, or other material that you insert into your shoe. It corrects the alignment of your foot and cushions your foot from excessive pounding. These may be prescription or non-prescription. Prescription orthotics are custom-fitted and may fit better and control pain better, but are very expensive. Night Splints: A night splint holds the foot with the toes pointed up and the ankle at a 90-degree angle. This position applies a constant, gentle stretch to the plantar fascia. Corticosteroid Shots: Steroids may be injected into the tender area to reduce inflammation. REHAB Exercises to stretch the plantar fascia, the calf muscles, and the Achilles tendon. Tightness of the muscles of the calves may contribute to plantar fasciitis, so stretching the calf muscles is important to rehabilitation, as is stretching of the plantar fascia itself. Plantar fascial stretches Assisted Dorsiflexion/Plantar Fascia Stretch: Sit on the floor or ground, barefoot, with both legs outstretched. Use a towel or elastic band and wrap it around the ball (and not the toes) of the affected foot. Use the towel or elastic band to provide resistance to upward movement of the forefoot. Pull foot upward (toward your body) with the help of the elastic band or towel, and then return to the starting position. Ten repetitions are recommended. Perform the sequence at least three times a day. Alternate Plantar Fascia Stretch: Sit upright in a chair, barefoot. Place the ankle of the affectedfoot on your opposite knee. Using the same hand as the affected foot, reach across and grab the toes. Flex the ankle toward and pull the toes toward the stokes. To test the stretch, place the thumb of your hand on the bottom of the foot. You should be able to feel the cord-like plantar fascia, running the length of the foot. Hold the stretch for a count of 10, then relax. Repeat 10 times. Do the sequence at least three times a day. Achilles/Calf Stretches Strengthening the muscles of the calves may contribute to successful rehabilitation of plantar fasciitis, as well as prevent reoccurrence. The exercises below will help strengthen the calf muscles. Calf and Achilles Tendon Stretch (Gastrocnemius Stretch): Face a wall, standing an arm's length away. Place one foot back. Place both hands on the wall. Bend the elbows and knee of your forward leg, keeping the heel of the backward foot on the floor and keeping your body straight (aligned), until your forehead nearly touches the wall, or until significant stretch is felt in the muscles of the calf of the backward leg. Hold this position for 10 to 15 seconds. Extend elbows (straighten your arms and stand upright again) and maintain this position for 10 seconds. Repeat this cycle 15 to 20 times. Switch legs and repeat the exercise. Powerstep Original Full length. Can purchase at [employer] here in [place], [employer] in [place] or [place]. Also can find in [employer] in [facility]. Powersteps can also be purchased online, starting around $45.00 If you have a metatarsal or dancer pad for your feet apply the pad directly to the insole so you can interchange between your shoes. Find a shoe with a removable insole and take this out and replace with your powerstep insole. Always bring powersteps with you when shopping for shoes so that you can make sure that everything fits well together documented in this [facility]08-04-[facility]23 History of Present illness Narrative* Ivette Mejia Jr., MD - 06/07/2023 3:16 PM EDT ESTABLISHED PATIENT VISIT CHIEF COMPLAINT: Follow Up HISTORY OF PRESENT ILLNESS: Tori Gray is a 42 year old female, with a PMH significant for and per last office visit note of 12/07/22: 1. Post concussion syndrome - ICD9: 310.2, ICD10: F07.81 (primary diagnosis) 2. Intractable acute post-traumatic headache - ICD9: 339.21, ICD10: G44.311 3. Dizziness - ICD9: 780.4, ICD10: R42 4. Cervicalgia - ICD9: 723.1, ICD10: M54.2 5. History of migraine - ICD9: V12.49, ICD10: Z86.69 Patient with known history of chronic migraine headaches despite use of Topamax 100mg BID and otherfailed meds in the past, now pending botox therapy. Patient now presents s/p head trauma as above with various associated symptoms including worsening and change in headache pattern, dizziness, cognitive changes -- constellation of symptoms suggestive of post-concussion syndrome. Dx d/w pt and explained that this could take days to weeks to recover. No objective means to verify diagnosis, and would be based on clinical history. That said, given persistence of symptoms feel appropriate to get MRI brain and C spine to evaluate for any other intracranial process or spinal process associated with trauma that could be cause of symptoms and may not have been identified on CT imaging. Will hold onIV contrast due to pt reporting prior reaction (could not find in documents). As for therapy, preference would be to place on steroid titration to reduce ongoing inflammation and break headache cycle, but due to diabetes and known steroid allergy, will instead increase patient's current dose of gabapentin to 300mg TID with possible increase to evening dose to 600mg. SE and ADRs d/w pt. Note no renal impairment on prior labs in [facility]. Patient will follow up after imaging complete. No other changes in meds at this time. 6. LETITIA (obstructive sleep apnea) - ICD9: 327.23, ICD10: G47.33 AHI normalized per download with evidence of PAP compliance as documented above. Reminded to clean and replace equipment regularly. No other recommendations at this time. MRI brain and C spine completed and both unremarkable per rad reports. Images reviewed and agree with rad reports that there are no changes that would explain patient's symptoms. Per reports: Acute Change: There is no evidence of restricted diffusion to suggest an acute infarct. Hemorrhage: No evidence of prior parenchymal hemorrhage on the gradient echo images. Mass Lesion/ Mass Effect: No evidence of an intracranial mass or extra-axial fluid collection. No significant mass effect. Chronic Change: The white matter is within normal limits of signal intensity for age. Parenchyma: No significant volume loss for age. The brain parenchyma is otherwise within normal limits of signal intensity and morphology. Ventricles: Normal caliber and morphology. Skull Base: Hypothalamic and pituitary region are grossly normal. Craniocervical junction is normal. No significant marrow replacement process. Vasculature: Major intracranial arterial structures, and dural venous sinuses show typical flow void, suggesting patency by spin echo criteria. Cord: The visualized cord is within normal limits of signal intensity and morphology. Bone marrow signal/fracture: No evidence of pathologic marrow infiltration. No evidence of prior fracture. Cervical soft tissues: The paraspinal soft tissues are within normal limits. C2-C3: Canal and foramina are patent. C3-C4: Canal and foramina are patent. C4-C5: Canal and foramina are patent. C5-C6: Canal and foramina are patent. C6-C7: Canal and foramina are patent. C7-T1: Canal and foramina are patent. Note that pt did see Krystle Beckford PA-C during the interim on 03/05/23: 1. Post concussion syndrome - ICD9: 310.2, ICD10: F07.81 (primary diagnosis) 2. LETITIA (obstructive sleep apnea) - ICD9: 327.23, ICD10: G47.33 3. Intractable acute post-traumatic headache - ICD9: 339.21, ICD10: G44.311 Patient overall much improved since last appointment. Notes improvement in her concentration, sleep, headaches overall. Does note that she recently had her first round of Botox injection for migraine, notes significant improvement with this. Also notes improvement in her neck pain by being in physical therapy. Still endorses periods of imbalance multiple times a day, feels clumsy as if one foot is heavier than another, unsure if it favors a side. Lasts for seconds, did have one fall after tanning, no LOC, no head injury, no dizziness. No post ictal state, no tongue biting or incontinence, thinks that she was dehydrated. Unclear etiology to this paroxysmal periods of imbalance. MRI of the cervical spine and brain were normal. Due to the atypical nature and brief episodes, will rule out seizure with routine EEG although low suspicion. Patient to continue botox for migraine, would like to go back to [place], noted that I do botox in this location and patient would like to transfer. EEG completed 04/02/23 at [facility] and per report, normal. Pt reports that botox still helping migraines. However, states having congestion in ear canals per urgent care staff and was given antibiotic for ears x7 days and wonders if contributing to headaches. States still not right since concussion and that balance is not right. Memory has improved but states feel cannot focus and that mind is all over the place - I have difficulties thinking now. States when working out through PT for her shoulder, that if she does not close her eyes and count the reps, she will forget her count. States if she talks to someone cannot recall what she was doing just prior. I feel like in [place]. I almost feel like I have ADHD. Had new fall 3 days ago - she feels due to wearing boot on R foot for 2 bone spurs. States chair was on wheels and was holding on to the chair to sit down and then the next thing she knows she was onthe ground. No head injury. No LOC. Again EEG unremarkable as above. States that lower back hurts since fall but has messed up disks anyway. States was at chiropractor yesterday with images unremarkable per pt and treatment improving symptoms. Pt states did not want to go to ER and deal with workman's comp. HAs are currently daily. YUAN primarily in R frontal region. No photophobia or nausea. Note I do not have a PAP data download for review despite request for it. Pt endorses PAP compliance. Pt then suddenly states she had another concussion 2 weeks ago - was working at [employer] and tubs of butter fell and hit her on the right side of the head. Pt states hurt the next day but then felt better. Did not seek medical attention. But then states went to [facility] ER where they did a CT scan that was ok per pt. YUAN history inconsistent with that reported to Krystle Beckford on 05/17/23. Denies depression or anxiety. REVIEW OF SYSTEMS GENERAL:No weight loss, malaise or fevers. HEENT: No changes in hearing or vision, no nose bleeds or other nasal problems NECK:Negative for lumps, goiter, pain and significant neck swelling RESPIRATORY: Negative for cough, wheezing or shortness of breath. CARDIOVASCULAR: Negative for chest pain, leg swelling or palpitations. GASTROINTESTINAL: Negative for abdominal discomfort, blood in stools or black stools or change in bowel habits GENITOURINARY: No history of dysuria, frequency or incontinence MUSCULOSKELETAL: See HPI. NEUROLOGIC:Negative for focal numbness or weakness, and dizziness or syncope, vision changes, speech/languag changes - EXCEPT that as per HPI above. SKIN:Negative for lesions, rash, and itching. HEMATOLOGIC/LYMPHATIC/IMMUNOLOGIC:Negative for prolonged bleeding, bruising easily or swollen nodes. ENDOCRINE: Negative for cold or heat intolerance, polyuria, polydipsia and goiter. The remainder of the ROS was reviewed and is negative. LAB/IMAGING: Those performed since patient's last visit have been reviewed. WBC (K/uL) Date Value 01/12/2021 9.0 RBC (M/uL) Date Value 01/12/2021 4.86 Hemoglobin (g/dL) Date Value 08/12/2015 13.4 HCT (%) Date Value 01/12/2021 42.6 MCV (fL) Date Value 01/12/2021 87.7 MCH (pg) Date Value 01/12/2021 28.4 MCHC (g/dL) Date Value 01/12/2021 32.4 RDW-CV (%) Date Value 08/12/2015 13.1 PLT (K/uL) Date Value 01/12/2021 217 MPV (fL) Date Value 01/12/2021 9.5 Glucose (mg/dL) Date Value 08/12/2015 93 BUN (mg/dL) Date Value 08/12/2015 9 Creatinine (mg/dL) Date Value 08/12/2015 0.59 (L) Sodium (mmol/L) Date Value 08/12/2015 136 Potassium (mmol/L) Date Value 08/12/2015 3.9 Chloride (mmol/L) Date Value 08/12/2015 97 (L) CO2 (mmol/L) Date Value 08/12/2015 25 Protein, Total (g/dL) Date Value 08/12/2015 7.3 Albumin (g/dL) Date Value 08/12/2015 4.3 Calcium (mg/dL) Date Value 08/12/2015 9.0 Alkaline Phosphatase (U/L) Date Value 08/12/2015 62 Bilirubin, Total (mg/dL) Date Value 08/12/2015 0.6 AST (U/L) Date Value 08/12/2015 23 ALT (U/L) Date Value 08/12/2015 26 Hep C Antibody IA (no units) Date Value 12/19/2012 Negative MEDICATIONS: gabapentin (NEURONTIN) 300 mg capsule Take 1 capsule by mouth twice daily for 180 days. Take one poqhs tiZANidine (ZANAFLEX) 4 mg tablet Take 1 tablet by mouth every 8 hours as needed. Ipratropium [place] (ATROVENT) 21 mcg (0.03 %) nasal spray Use 2 Sprays in the nose every 12 hours. topiramate (TOPAMAX) 100 mg tablet Take 1 tablet by mouth twice daily. omeprazole (PRILOSEC) 20 mg capsule Take 1 capsule by mouth daily before breakfast. 1/2 hr before meal. MAGNESIUM ORAL Take by mouth. ZOLMitriptan (ZOMIG) 5 mg tablet Take 1 tablet by mouth once daily. prn meclizine (ANTIVERT) 25 mg tab Take 25 mg by mouth once daily. Takes two tabs in am lisinopril (ZESTRIL, PRINIVIL) 10 mg tablet Take 1 tablet by mouth once daily. BIPAP dulaglutide (TRULICITY) 0.75 mg/0.5 mL pen injector Inject 0.75 mg subcutaneously one time a week. Inject dose once per week. Discard Pen After albuterol HFA (VENTOLIN HFA) 90 mcg/actuation inhaler Inhale 2 Puffs as instructed every 4 hours asneeded for wheezing/shortness of breath. fexofenadine (ALMA ALLERGY) 180 mg tablet Take 1 tablet by mouth once daily. levonorgestrel (KYLEENA) 17.5 mcg/24 hrs (5 yrs) 19.5 mg IUD 1 Each by INTRAUTERINE route as directed. Lancets lancets Test blood sugar(s) 1 times daily. Dx: Type 2 DM - Controlled E11.9 Insulin: No Ysymhbnh-Ef-Bda-Fe-FA tab Take 1 tablet by mouth once daily. FLUoxetine (PROZAC) 20 mg capsule Take 1 capsule by mouth once daily. [place]-3 Fatty Acids (FISH OIL) 500 mg cap Take 1 capsule by mouth once daily. blood sugar diagnostic (BLOOD GLUCOSE TEST) test strip Test blood sugar(s) 1 times daily. Dx: Type 2 DM - Controlled E11.9 Insulin: Yes (Patient not taking: Reported on 06/07/2023) HISTORIES PAST MEDICAL HISTORY Diagnosis Date Acute cholecystitis Cholecystitis Anxiety 06/07/2014 Chronic back pain Kidney stones LETITIA treated with BiPAP Type 2 diabetes mellitus (HCC) FAMILY HISTORY Problem Relation Age of Onset Alcohol/Drug Mother Heart Father [place] Cancer Father PANCREATIC CANCER Diabetes Father Coronary Artery Disease Father Anxiety disorder Sister Depression Sister Depression Brother Cancer Maternal Grandmother LUNG CANCER Diabetes Maternal Grandfather Heart Paternal Grandmother TRIPLE BYPASS SURGERY SOCIAL HISTORY Social History Tobacco Use Smoking status: Never Smokeless tobacco: Never Vaping Use Vaping Use: Never used Substance Use Topics Alcohol use: No Drug use: No PHYSICAL EXAMINATION BP 138/76 Pulse 75 Resp 16 LMP (LMP Unknown) SpO2 97% GENERAL EXAM: General appearance: NAD, pleasant. HEENT: NC/AT, nasal congestion absent, no oral lesions, membranes moist. NECK: ROM nml. Lungs: CTA bilaterally. CV: RRR nl S1, S2. No carotid bruits. Skin: Cool to touch. NEUROLOGICAL EXAM: General: Awake, alert, oriented x3 (person,place,time), speech fluent, no dysarthria; comprehension, naming, repetition intact. CN: PERRL, fundi with no evidence of papilledema, EOMI and without nystagmus, VFF to confrontation,facial sensation and strength are normal and symmetric, hearing is intact to finger rub bilaterally, palate and tongue movements are intact and symmetric. SCM and trapezius strength normal. Motor: Normal tone, bulk and strength (5/5) bilaterally (throughout extremities x4). Coordination: FNF, LYUDMILA, HTS intact. No tremors. Sensation: Light touch and vibration intact throughout. No evidence of neglect. Gait: Stable with normal stride and arm swing. Assessment and Plan: ASSESSMENT/PLAN: 1. Memory loss - ICD9: 780.93, ICD10: R41.3 (primary diagnosis) 2. Attention and concentration deficit - ICD9: 799.51, ICD10: R41.840 3. Post concussion syndrome - ICD9: 310.2, ICD10: F07.81 4. Intractable migraine without aura and without status migrainosus - ICD9: 346.11, ICD10: G43.019 5. LETITIA (obstructive sleep apnea) - ICD9: 327.23, ICD10: G47.33 Patient with new complaint of poor focus, attention and memory impairment that she wonders whether is secondary to prior concussion. Note patient poor and inconsistent historian including not recalling another head trauma in recent weeks. Also provides history today that contradicts what was reported to Krystle IRENE during recent botox visit. Regarding memory and attention/focus complaints, will refer to neuropsych for formal neurocognitiveassessment. Pt with multiple brain images over recent months including a reported CT post recent concussion from which I have no ER records, and thus do not feel at this time further imaging will be of benefit. In addition EEG reported as normal. Pt asks whether we can start on stimulants which I explained would be inappropriate without diagnosis. As for headaches, patient repeatedly changes response as to whether improving or not. When asked feelings about changing current meds she states she would like to continue with current Rx for the next couple weeks to see if eventual improvement with botox. Thus, no changes at this time. Again, suspect migraine that were possibly exacerbated at time of prior head trauma. No complaints regarding LETITIA. No objective data for review but subjectively compliant with PAP with no complaints. Reports not waking during the night and that sleep is restorative. For recent fall with back injury, following with chiropractor with pt not wanting additional workupat this time. Follow up after evaluation by neuro [facility]. Ivette Mejia MD I spent a total of 42 minutes on the date of the service which included preparing to see the patient, [id number] patient care, completing clinical documentation, obtaining and/or reviewing separately obtained history, performing a medically appropriate examination, counseling and educating the pat ient/family/caregiver, ordering medications, tests, or procedures, independently interpreting results (not separately reported), and communicating results to the patient/family/caregiver. 1. This office note may contain minor typographic errors that escaped review 2. The nursing staff and medical assistants are a major part of YOUR TREATMENT TEAM and will be handling your phone calls and inquiries, if any. Unless explicitly told otherwise at the time of your office visit, your study results and ensuing treatment plans will be discussed during your follow-up appointment. 3. It is my practice to not fill disability or any other insurance or litigation-related forms/documention. All of the office notes, study results, and other pertinent documentation generated as partof your evaluation will be available to you and to your Primary Care Physician (PCP). Use of this material to complete such forms will be at the discretion of your PCP/referring physician. documented in this encounterFair[facility] Center08-03-2023 History of Present illness Narrative* Ivette Grimes MD - 06/06/2023 9:30 AM EDT Patient presents with: Follow Up HPI: Patient presents today for office visit for follow up. visit showed 2 spurs right foot and has been wearing boot at work. Seeing podiatry Diabetes: Glucose not bad. Is eating well. Going to gym 3 times per week. Doing exercises that PThad given her. Not checking glucose on regular basis. On lisinopril for renal protection. Last a1c was 6.1, microalbumin was good. LETITIA:using bipap. Headaches: Botox helped really well this first time. More headaches since the second round. Treating some ear issues though so may be contributing factor? Doing therapy, chiropractic and dry needlling. Still using gabapentin for chronic pain issues. Tolerating well. Wants to see Dr Mccray. Remains on prozac. Has seen eps and given ok to continue. Seeing [facility]. Feeling well overall MEDICATIONS: Current Outpatient Medications Medication Sig tiZANidine (ZANAFLEX) 4 mg tablet Take 1 tablet by mouth every 8 hours as needed. Ipratropium [place] (ATROVENT) 21 mcg (0.03 %) nasal spray Use 2 Sprays in the nose every 12 hours. topiramate (TOPAMAX) 100 mg tablet Take 1 tablet by mouth twice daily. omeprazole (PRILOSEC) 20 mg capsule Take 1 capsule by mouth daily before breakfast. 1/2 hr before meal. MAGNESIUM ORAL Take by mouth. gabapentin (NEURONTIN) 300 mg capsule Take one po qhs FLUoxetine (PROZAC) 20 mg capsule Take 1 capsule by mouth once daily. ZOLMitriptan (ZOMIG) 5 mg tablet Take 1 tablet by mouth once daily. prn meclizine (ANTIVERT) 25 mg tab Take 25 mg by mouth once daily. Takes two tabs in am lisinopril (ZESTRIL, PRINIVIL) 10 mg tablet Take 1 tablet by mouth once daily. BIPAP dulaglutide (TRULICITY) 0.75 mg/0.5 mL pen injector Inject 0.75 mg subcutaneously one time a week. Inject dose once per week. Discard Pen After albuterol HFA (VENTOLIN HFA) 90 mcg/actuation inhaler Inhale 2 Puffs as instructed every 4 hours asneeded for wheezing/shortness of breath. fexofenadine (ALMA ALLERGY) 180 mg tablet Take 1 tablet by mouth once daily. levonorgestrel (KYLEENA) 17.5 mcg/24 hrs (5 yrs) 19.5 mg IUD 1 Each by INTRAUTERINE route as directed. Herrick-3 Fatty Acids (FISH OIL) 500 mg cap Take 1 capsule by mouth once daily. blood sugar diagnostic (BLOOD GLUCOSE TEST) test strip Test blood sugar(s) 1 times daily. Dx: Type 2 DM - Controlled E11.9 Insulin: Yes (Patient not taking: Reported on 05/28/2023) Lancets lancets Test blood sugar(s) 1 times daily. Dx: Type 2 DM - Controlled E11.9 Insulin: No Dizgcwpw-Du-Pdr-Fe-FA tab Take 1 tablet by mouth once daily. No current facility-administered medications for this visit. ALLERGIES: ALLERGIES Allergen Reactions Lidocaine Hives Steroids [Betametha* Hives PAST MEDICAL HISTORY Diagnosis Date Acute cholecystitis Cholecystitis Anxiety 06/07/2014 Chronic back pain Kidney stones LETITIA treated with BiPAP Type 2 diabetes mellitus (HCC) PAST SURGICAL HISTORY Procedure Laterality Date DELIVERY ONLY 2006 , low cervical INSERT INTRAUTERINE DEVICE 10/19/08 mirena LAPAROSCOPY SURG CHOLECYSTECTOMY 2006 Cholecystectomy, lap (Rowena Monet) PAST SURGICAL HISTORY OF 2019 stent into kidney REMOVE IUD 07/13/2010 FAMILY HISTORY Problem Relation Age of Onset Alcohol/Drug Mother Heart Father [place] Cancer Father PANCREATIC CANCER Diabetes Father Coronary Artery Disease Father Anxiety disorder Sister Depression Sister Depression Brother Cancer Maternal Grandmother LUNG CANCER Diabetes Maternal Grandfather Heart Paternal Grandmother TRIPLE BYPASS SURGERY Social History Tobacco Use Smoking status: Never Smokeless tobacco: Never Vaping Use Vaping Use: Never used Substance Use Topics Alcohol use: No Drug use: No Reviewed current medications, allergies, past medical history, surgical history, family history andsocial history today. REVIEW OF SYSTEMS Fall at work. Missed chair and hit floor. Is sore from fall. Using her muscle relaxer to help and has a chiropractor appt today at noon. All other reviewed and negative other than HPI. HEALTH MAINTENANCE: Reviewed health maintenance issues today and recommended the following in detail. COVID-19 VACCINE(4 - Moderna series) due on 12/13/2021 DILATED RETINAL EXAM -rec DEPRESSION ASSESSMENT Never done DTAP,TDAP,TD(2 - Td or Tdap) due on 06/01/2023 MAMMOGRAM due on 08/10/2023 VITALS: BP 129/81 Pulse (!) 51 Wt 132 kg (291 lb) LMP 01/02/2023 (Approximate) SpO2 98% BMI 45.58kg/m Last 4 Encounter Wt Readings: Date: Wt: 05/28/2023 133 kg (293 lb 3.2 oz) 05/17/2023 132 kg (291 lb) 03/05/2023 130.1 kg (286 lb 12.8 oz) 03/05/2023 130.2 kg (287 lb) PHYSICAL EXAMINATION: General appearance: Well appearing, alert, in no acute distress, well-hydrated, well nourished Neck: Supple, no adenopathy; thyroid symmetric, normal size, no bruits Back: Normal exam Lungs: Lungs clear to auscultation. No wheezing, rhonchi, rales Heart: RRR without murmur, gallop, or rubs. No ectopy Abdomen: Normal abdominal exam, Abdomen soft, non-tender. Bowel sounds normal. No masses, organomegaly Extremities: No deformities, edema, skin discoloration, clubbing or cyanosis. Good capillary refill. ASSESSMENT/PLAN: 1. Type 2 diabetes mellitus with microalbuminuria, with long-term current use of insulin (HCC) - ICD9: 250.40, 791.0, V58.67, ICD10: E11.29, R80.9, Z79.4 (primary diagnosis) - stay on meds. Labs in six months. - CBC + DIFF - COMP METABOLIC PANEL - LIPID PANEL BASIC - HGB A1C 2. Chronic left shoulder pain - ICD9: 719.41, 338.29, ICD10: M25.512, G89.29 - see pain management. - CONSULT TO PAIN MGT 3. Herniation of lumbar intervertebral disc with radiculopathy - ICD9: 722.10, 724.4, ICD10: M51.16 - now taking marta bid. Refilled meds. - CONSULT TO PAIN MGT 4. Essential (primary) hypertension - ICD9: 401.9, ICD10: I10 -doing well. 5. Nonalcoholic fatty liver - ICD9: 571.8, ICD10: K76.0 - follow labs. 6. Intractable chronic migraine without aura and without status migrainosus - ICD9: 346.71, ICD10: G43.719 - per neuro 7. LETITIA (obstructive sleep apnea) - ICD9: 327.23, ICD10: G47.33 - treating. Doing well. 8. Encounter for screening mammogram for malignant neoplasm of breast - ICD9: V76.12, ICD10: Z12.31 - placed order - FLASH SCREENING 9. Headache, unspecified headache type - ICD9: 784.0, ICD10: R51.9 - GABAPENTIN 300 MG CAPSULE Ivette Grimes MD RTO in six months documented in this [facility]07[facility] History of Present illness Narrative* Isiah Funes APRN.[facility] - 05/29/2023 4:38 PM EDT Boot provided, see yesterdays addended noted. documented in this encounterFairfield [facility] Center07-26-2023 Miscellaneous Notes* Telephone Encounter - Priscila France RN - 05/29/2023 3:07 PM EDT Pt called and is notified of providers message. Pt voices understanding. Priscila France RN * Telephone Encounter - Isiah Funes APRN.CNP - 05/29/2023 2:42 PM EDT Yes can return for boot * Telephone Encounter - Priscila France RN - 05/29/2023 1:03 PM EDT Pt states she was in to [facility] yesterday and had a foot s-ray done and they [facility] provider had recommendeda boot. Pt states she refused the boot at that time. She reports she works two jobs and her foot iskilling her at this time. She was asking if she would be able to come in and get the boot. Please call Pt. documented in this encounterFairfield [facility] Center07-17-2023 Discharge summary Author Sam Pearl [facility] May 20, 2023 10:36pm Note Date/Time May 20, 2023 10:3 6pm [facility] Medical Records Department [address] [place] [address] Emergency Department Summary 05/20/23 MR#: [id number] Acct: [id number] Name: TORI GRAY Rep #:[id number] : 1980 42 From: Sam Pearl MD PCP: Dr. Ivette Grimes MD Status:PRE E R Location: ED HPI History of Present Illness Chief Complaint: Head Injury Informant: patient Onset/Context/Timing Onset: Hours (1.5) Mechanism/Context: Blunt Injury Narrative Narrative: Patient states she was working at a [employer], it was almost closing time, she was trying to get a heavy tub of butter off of a shelf that was up high over her head and it and another tub both fell and glanced her on the side of the head on the right, and ever since she has been having headache, photophobia, some nausea. No vomiting. No confusion. No peripheral numbness, tingling, weakness or other injury. She states she has a history of a bad concussion and she had postconcussive symptoms/syndrome, and she has persisting concussive symptoms that are now made worse since this injury. [facility] Medical History Abnormal ECG Acute bronchitis Acute cholecystitis Acute kidney injury Acute respiratory insufficiency Anxiety Back pain Calculus of left kidney Degeneration of intervertebral disc of lumbosacral region Disc displacement, lumbar Dyspnea Dysuria Elevated triglycerides with high cholesterol Fatty liver History of obstructive sleep apnea History of stent into kidney Hydronephrosis, left Hydroureter, left Hypertension 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 Left shoulder pain Left shoulder strain Left upper extremity numbness Left upper quadrant abdominal pain Lumbar facet arthropathy Lumbosacral spondylosis Microalbuminuria Migraines Nausea Nephrolithiasis Nonalcoholic hepatosteatosis Obesity Obstructive Sleep Apnea-Hypopnea Syndrome LETITIA (obstructive sleep apnea) Pain of left scapula Prolonged Q-T interval on ECG Pyelonephritis Radiculopathy of lumbosacral region Segmental and somatic dysfunction of cervical region Segmental and somatic dysfunction of lumbar region Segmental and somatic dysfunction of pelvic region Segmental and somatic dysfunction of thoracic region Type 2 diabetes mellitus Type 2 diabetes mellitus with microalbuminuria Type 2 diabetes mellitus without complication, with long-term current use of insulin Urinary tract infection Vertigo Home Medications blood sugar diagnostic (Blood Glucose Test strips) #10 ea 04/26/20 [History Last Taken Unknown] jwmsgugz-aox-Ed-FA 1 mg capsule 1 cap PO DAILY 04/26/20 [History Last Taken Unknown] ipratropium bromide 21 mcg (0.03 %) nasal spray 2 spray intranasal BID 08/23/20 [History Last Taken Unknown] omega-3 fatty acids 1,000 mg capsule (Fish Oil Concentrate) 1,000 mg PO DAILY 02/21/21 [History Last Taken Unknown] albuterol sulfate 90 mcg/actuation aerosol inhaler 2 puff inhalation Q4H PRN shortness of breath or wheezing 08/10/22 [History Last Taken Unknown] dulaglutide 0.75 mg/0.5 mL subcutaneous pen injector (Trulicity) 0.75 mg subcut QWEEK 08/10/22 [History Last Taken Unknown] fexofenadine 180 mg tablet (Allergy Relief (fexofenadine)) 180 mg PO DAILY 08/10/22 [History Last Taken Unknown] levonorgestrel 17.5 mcg/24 hrs (5yrs) 19.5mg intrauterine device 1 device intrauterine ONCE 08/10/22 [History Last Taken Unknown] tizanidine 4 mg tablet 4 mg PO Q8H PRN Muscle Spasm 08/10/22 [History Last Taken Unknown] omeprazole 20 mg capsule,delayed release 20 mg PO DAILY PRN 08/16/22 [History Last Taken Unknown] topiramate 100 mg tablet 100 mg PO BID 08/16/22 [History Last Taken Unknown] fluoxetine 20 mg capsule 20 mg PO DAILY 12/28/22 [History Last Taken Unknown] gabapentin 300 mg capsule 300 mg PO TID 12/28/22 [History Last Taken Unknown] lisinopril 10 mg tablet 10 mg PO DAILY 12/28/22 [History Last Taken Unknown] ondansetron HCl 4 mg tablet 4 mg PO Q8H 12/28/22 [History Last Taken Unknown] rizatriptan 10 mg tablet 10 mg PO ONCE 12/28/22 [History Last Taken Unknown] Allergy/AdvReac Type Severity Reaction Status Date / Time Corticosteroids Allergy Hives Verified 04/30/23 09:56 (Glucocorticoids) [steroids] lidocaine AdvReac Intermediate Hives Verified 04/30/23 09:56 Family History Father Diabetes Myocardial infarction Pancreatic cancer Mother Alcohol abuse Drug abuse Grandfather Diabetes Grandmother Lung cancer Grandmother Heart disease Triple bypass surgery Surgical History H/O: (~2005) History of urethral stent (~2018) Hx laparoscopic cholecystectomy (~2005) Social History Smoking Status: Never smoker alcohol intake: never substance use type: does not use caffeine: Yes Type: coffee what type of physical activity do you participate in: walking frequency: daily seatbelt use: always do you feel safe at home: Yes ROS ROS ED Constitutional Constitutional ED: Denies chills or fever(s) Eyes Eyes: Reports photophobia; Denies blurry vision or change in vision Gastrointestinal Gastrointestinal: Reports nausea; Denies vomiting Musculoskeletal Musculoskeletal: Reports neck pain; Denies back pain Integumentary Denies Abrasions or rash Neurologic Neurologic: Reports headache(s); Denies confusion, paresthesias or weakness EXAM Physical Exam Const Vital Signs: 05/20/23 21:28 05/20/23 21:41 Temperature 97.5 F L Temperature Source Temporal Pulse Rate 85 Respiratory Rate 16 Respiratory Pattern Normal Blood Pressure 181/97 H Blood Pressure Mean 125 Pulse Ox 98 Oxygen Delivery Method Room Air Positive well nourished, well developed and obese General Appearance ED: well developed and NAD Nutritional Appearance: obese HEENT Reports TM's clear and nasal mucous membranes and turbinates normal HEENT Narrative: Tender in the right forehead, the area of the zygomatic arch although the bony arch itself is nontender, and the right lateral neck. No signs of trauma, no hematoma, no crepitance or depression. atraumatic and tenderness Face and Sinus: Negative for facial tenderness Tympanic Membrane ED: Yes TM's clear Eyes PERRL and EOMs intact bilaterally General Eye ED: Yes other Other Details: Mild photophobia Visual Acuity: other Other Details: no entrapment or pain with extraocular movements Neck full ROM and supple General: Negative for tenderness Chest Wall inspection of chest normal and palpation of chest normal Chest: symmetrical chest wall rise; Negative for crepitus or tenderness Resp normal respiratory effort Back/Spine normal ROM Cervical Spine: Negative for cervical spine tenderness Thoracic Spine / Upper Back: Negative for thoracic spinal tenderness Lumbar Spine / Lower Back: Negative for lumbar spinal tenderness Extremity normal to inspection and full ROM General Extremety ED: Negative for tenderness Neuro oriented x3, CN's II-XII intact bilaterally, moves all extremities, no focal motor deficits and no sensory deficits noted Neuro Narrative: Mentating normally. Normal speech. Can name and remember objects. Roberta Coma Scale: document GCS findings Spontaneous Obeys Commands Oriented 15 Sensorium / Orientation: awake and alert Psych mental status grossly normal and thought process normal Skin no wounds Lesions: no lesions Rashes: no rashes MDM MDM MDM Narrative Medical decision making narrative: Patient reassured she meets multiple criteria to not need advanced imaging of her brain at this time. I can tell her with high degree of certainty that she does not have a skull fracture or intracranial hemorrhage. This is likely an exacerbation of her previous postconcussive syndrome, supportive care advised and follow-up, given work restrictions temporarily. NEXUS Head CT Instrument from Sajan on 05/20/2023 All calculations should be rechecked by clinician prior to use RESULT SUMMARY: Low risk of significant intracranial injuries CT not necessary INPUTS: Evidence of significant skull fracture ?> 0 = No Scalp hematoma ?> 0 = No Neurologic deficit ?> 0 = No Altered level of alertness ?> 0 = No Abnormal behavior ?> 0 = No Coagulopathy ?> 0 = No Persistent vomiting ?> 0 = No Age >=5 years ?> 0 = No [place] CT Head Injury/Trauma Rule from Sajan on 05/20/2023 All calculations should be rechecked by clinician prior to use RESULT SUMMARY: CT Unnecessary The [place] Head CT Rule suggests a head CT is not necessary for this patient (sensitivity 83-100% for all intracranial traumatic findings, sensitivity 100% for findings requiring neurosurgical intervention). INPUTS: Age ?> 0 = No Patient on blood thinners ?> 0 = No Seizure after injury ?> 0 = No GCS ?> 0 = No Suspected open or depressed skull fracture ?> 0 = No Any sign of basilar skull fracture? ?> 0 = No >= episodes of vomiting ?> 0 = No Age >=5 years ?> 0 = No Retrograde amnesia to the event >=30 minutes ?> 0 = No ?Dangerous? mechanism? ?> 0 = No Discharge Plan Triage Chief Complaint: Head Injury ED Provider: Sam Pearl Dx/Rx/DC Orders Clinical Impression: Closed head injury without loss of consciousness Instructions: ED Concussion Prescriptions: No Action swbcpmjr-mfw-Jr-FA 1 mg capsule 1 mg capsule 1 cap PO DAILY (DME) blood sugar diagnostic [Blood Glucose Test] Strip See Rx Instructions .ROUTE .MEDSUPPLY Qty: 10 Rx Instructions: As directed ipratropium bromide 0.03 % spray,non-aerosol 2 spray INTRANASAL BID Rx Instructions: administer into each nostril omega-3 fatty acids [Fish Oil Concentrate] 1,000 mg capsule 1,000 mg PO DAILY Trulicity 0.75 mg/0.5 mL pen injector 0.75 mg subcut QWEEK Patient Comments: INJECT 1 PENaSUBCUTANEOUSLY ONCE PER WEEK fexofenadine [Allergy Relief (fexofenadine)] 180 mg tablet 180 mg PO DAILY levonorgestrel 17.5 mcg/24 hrs (5 yrs) 19.5 mg intrauterine device 1 device intrauterine ONCE Rx Instructions: as a single dose omeprazole 20 mg capsule,delayed release(DR/EC) 20 mg PO DAILY PRN Patient Comments: Take 1 capsule by mouthndaily before breakfast. 1/2 hr before meal. topiramate 100 mg tablet 100 mg PO BID Patient Comments: Take 1 tablet by mouthitwice daily. gabapentin 300 mg capsule 300 mg PO TID Patient Comments: TAKE 1 CAP 3 TIMES DAILY.CIF AFTER 2 DAYS SYMPTOMS PERSIST, INCREASE TO 2 CAPS AT BEDTIME lisinopril 10 mg tablet 10 mg PO DAILY Patient Comments: Take 1 tablet by mouthEonce daily. rizatriptan 10 mg tablet 10 mg PO ONCE Patient Comments: Take 1 tablet by mouth astneeded (at onset ofdheadache. May repeatfafter 2 hours.). Do not exceed 30 mg per day. ondansetron HCl 4 mg tablet 4 mg PO Q8H Patient Comments: TAKE 1 TABLET BY MOUTHEEVERY 8 HOURS NEEDED FOR NAUSEA OR VOMITING fluoxetine 20 mg capsule 20 mg PO DAILY Patient Comments: Take 1 capsule by mouthConce daily. albuterol sulfate 90 mcg/actuation HFA aerosol inhaler 2 puff INHALATION Q4H PRN (Reason: shortness of breath or wheezing) tizanidine 4 mg tablet 4 mg PO Q8H PRN (Reason: Muscle Spasm) Stand Alone Forms: ED Work / School Excuse, Work Status Form Primary Care Provider: Ivette Grimes Referrals: [facility] [Group of Physicians] - 3-5 Days if not improving Ivette Grimes MD [Primary Care Provider] - 3-5 Days if not improving Disposition Disposition: Home, Self Care What to do if you have Problems For any increased pain, shortness of breath, bleeding, nausea or vomiting, chestpain, or any unexpected problems, contact your Primary Care Provider. Call [facility] ([phone]) or report to the closest Emergency Room. Call 911 if necessary. 05/20/232235 <Electronically signed by Sam Pearl MD> Cosigner Signature (if applicable): CC: Dr. Ivette Grimes MD ~ Signed [facility] Work Phone: [phone] 262-947207-14-2023 Instructions* Patient Instructions* Fatuma Beckford PA-C - 05/17/2023 10:39 AM EDT Speech therapy for post-concussive syndrome Botox Home Instruction: Instruction after botox injection: - If you have any pain or swelling use ice, 20 min on and 20 min off. Do not rub or massage the area for 48 hrs. - If you have any neck stiffness, you may use heat and do stretching exercises. - This should improve over the next 5 days. - If it does not, call our office for further instructions. documented in this encounterFairfield [facility] Center07-14-2023 History of Present illness Narrative* Fatuma Beckford PA-C - 05/17/2023 10:19 AM EDT Follow-Up Onabotulinum Toxin A (BotoxTM) for Migraine Indication: Chronic Intractable Migraine Treatment #: 2 Referral Expiration: 04/02/2024 Prior to the initiation of the FIRST treatment with Onabotulinum Toxin A, the patient reported the following average headache frequency over the past 3 MONTHS: Number of moderate-severe migraine days/month: 30 (daily) Number of mild migraine days/month: 0 Number of headache free days/month: 0 (0 headache-free hours) Migraine severity: 08/13 After treatment with Onabotulinum Toxin A: Number of moderate-severe migraine days/month: 2 Number of mild migraine days/month: 0 Number of headache free days/month: 28 (672 headache-free hours) Migraine severity: 05/13 Patient reduction in overall migraine days: Yes Patient reduction in moderate-severe migraine days: Yes Patient reduction of headache hours by 100 hours or more: Yes (reduction of 672 hours) Individual has obtained clinical benefit deemed significant by individual or prescriber (Y/N): Yes Patient's quality of life and ability to perform ADLs has improved (Y/N): Yes Side effects: none Wearing off: Yes - 9 weeks after treatment The patient has been assessed for disorders which could contribute to breathing or swallowing difficulty, and there is no contraindication with PREEMPT Botox. There is no documented allergic reaction/hypersensitivity to any botulinum toxin and there is no active infection at proposed injection site. HEADACHE SCORES: VAHE - 2/7 SCORES 10/05/2022 11/14/2022 02/13/2023 VAHE-2 Score 4 1 2 VAHE-7 Score 8 2 6 PHQ-9 10/05/2022 11/14/2022 02/13/2023 Score 16 2 3 BP 123/70 Pulse 68 Ht 170.2 cm (5' 7) Wt 132 kg (291 lb) LMP 01/02/2023 (Approximate) SpO2 97% BMI 45.58 kg/m Patient name: Tori Gray : 1980 ALLERGIES Allergen Reactions Lidocaine Hives Steroids [Betametha* Hives UNIVERSAL PROTOCOL / SAFETY CHECKLIST Procedure: Onabotulinum toxin A for migraine Informed Consent Consent Obtained: Written [place] Protocol A moment to CARE was completed SIGN IN Personnel directly involved with the procedure wore the appropriate PPE Special Equipment: N/A Patient/Surrogate Stated/Verified: Patient name, Date of , Relevant allergies and Intended procedure TIME OUT Intended patient and procedure match the source document(s) Consent documented and matches the intended procedure No relevant labs, photos, and/or imaging studies were applicable for review. No correct side/site applicable for marking and visibility. No medications required for procedure. No fire risk assessment and interventions applicable. No implant(s) inserted. SIGN OUT No specimen collected. No instruments, equipment or retained foreign bodies applicable. Post-procedure follow-up management communicated and Plan of Care Visit completed when applicable Written Consent Obtained: Written LOT #: [id number] Expiration Date: Month: 9 Year: 2024 Second vial: LOT #: [id number] Expiration Date: Month: 6 Year: 2024 Injection Sites Left (Units) Left (Sites) Right (Units) Right (Sites) TOTAL (Units) Professor In Family Studies 5 1 5 1 10 Procerus Units: 5 Sites: 1 5 Frontalis 10 2 10 2 20 Temporalis 20 4 20 4 40 Occipitalis 15 3 15 3 30 Cervical PSP 10 2 10 2 20 Trapezius 15 3 15 3 30 Total Units used: 155 Total Units wasted: 45 Prior Therapies Duration of Use Dose Side effect Lyrica Excedrin Tylenol Naproxen Amiovig Topamax, Amitriptyline Propranolol Topiramate/ Trokendi XL Zomig Rizatriptan Patient presents for 2nd round of botox, tolerated procedure well without complications. Patient continuing to take topiramate and zomig for headaches. Patient noted improvement with 1st round of botox. Notes improvement in migraines but still has issues with concentration and focusing secondary to concussion in November. Slowly improving since last appointment, will refer to speech therapy. Will return in 12 weeks for repeat botox therapy. Fatuma Beckford PA-C documented in this encounterFair[facility]07-05-2023 Miscellaneous Notes* Telephone Encounter - Lubna Yoon LPN - 05/08/2023 9:00 AM EDT Patient has been identified by name and date of : Yes Patient phones for refill(s): Requested Prescriptions Pending Prescriptions Disp Refills tiZANidine (ZANAFLEX) 4 mg tablet 20 tablet 0 Sig: Take 1 tablet by mouth every 8 hours as needed. Date of last office visit in primary care: 02/28/2023 Patient Comment: Can you please send in more than a seven day supply. It would be cheaper for my insurance. The pharmacist told me to look into it. Please advise. Thank you. Lubna Yoon LPN documented in this encounterFairfield [facility] Center06-02-2023 Miscellaneous Notes* Telephone Encounter - Nirmala Storey LPN - 04/05/2023 8:41 AM EDT Patient has been identified by name and date of : Yes Requested Prescriptions Pending Prescriptions Disp Refills topiramate (TOPAMAX) 100 mg tablet 60 tablet 5 Sig: Take 1 tablet by mouth twice daily. tiZANidine (ZANAFLEX) 4 mg tablet 20 tablet 0 Sig: Take 1 tablet by mouth every 8 hours as needed. RX INSTRUCTIONS: Patient aware RX will be sent to pharmacy. No need to notify patient. Nirmala Storey LPN documented in this encounterFairfield Medical Center05-17-2023 Miscellaneous Notes* Telephone Encounter - Naika Caraballo RN - 03/20/2023 12:38 PM EDT Botox renewal sent to pharmacy. Will schedule at [place] once approved. Patient due 04/22/23. [facility] unchecked. Latonia Caraballo RN documented in this encounterFairfield Medical Center05-08-2023 Miscellaneous Notes* Telephone Encounter - Nakia Caraballo RN - 03/11/2023 11:01 AM EDT Patient is not due for botox until 04/22/23. Asked her which location she prefers so we can scheduleonce approved. Latonia Caraballo RN documented in this encounter[facility]05-02-[facility]23 Instructions* Patient Instructions* Fatuma Beckford PA-C - 03/05/2023 1:02 PM EDT Continue regimen Reach out with any new symptoms or worsening weakness Reach out to [facility] about moving botox Follow up with sleep provider in three months documented in this encounterFair[facility] Center05-02-2023 History of Present illness Narrative* Fatuma Beckford PA-C - 03/05/2023 12:29 PM EDT ESTABLISHED PATIENT VISIT Last visit: 12/07/[address] Mejia ASSESSMENT/PLAN: 1. Post concussion syndrome - ICD9: 310.2, ICD10: F07.81 (primary diagnosis) 2. Intractable acute post-traumatic headache - ICD9: 339.21, ICD10: G44.311 3. Dizziness - ICD9: 780.4, ICD10: R42 4. Cervicalgia - ICD9: 723.1, ICD10: M54.2 5. History of migraine - ICD9: V12.49, ICD10: Z86.69 Patient with known history of chronic migraine headaches despite use of Topamax 100mg BID and otherfailed meds in the past, now pending botox therapy. Patient now presents s/p head trauma as above with various associated symptoms including worsening and change in headache pattern, dizziness, cognitive changes -- constellation of symptoms suggestive of post-concussion syndrome. Dx d/w pt and explained that this could take days to weeks to recover. No objective means to verify diagnosis, and would be based on clinical history. That said, given persistence of symptoms feel appropriate to get MRI brain and C spine to evaluate for any other intracranial process or spinal process associated with trauma that could be cause of symptoms and may not have been identified on CT imaging. Will hold onIV contrast due to pt reporting prior reaction (could not find in documents). As for therapy, preference would be to place on steroid titration to reduce ongoing inflammation and break headache cycle, but due to diabetes and known steroid allergy, will instead increase patient's current dose of gabapentin to 300mg TID with possible increase to evening dose to 600mg. SE and ADRs d/w pt. Note no renal impairment on prior labs in Scanned Docs. Patient will follow up after imaging complete. No other changes in meds at this time. 6. LETITIA (obstructive sleep apnea) - ICD9: 327.23, ICD10: G47.33 AHI normalized per download with evidence of PAP compliance as documented above. Reminded to clean and replace equipment regularly. No other recommendations at this time. Ivette Mejia MD CHIEF COMPLAINT: Follow up HISTORY OF PRESENT ILLNESS: Tori Gray is a 42 year old female, There were no vitals taken for this visit. with a PMH significant for migraine, chronic shoulder pain, LETITIA, HTN, DM type 2. [facility] Patient sustained fall and head injury 1/21/23 with LOC. Noted to have botox for migraines last month. Fall causing worsening headaches and dizziness. Headaches not typical for migraine, whole head and worsened with standing up. Hard to sleep, pain worse with standing and turning neck. Right face went numb after fall. Poor short term memory at last appointment. Increased gabapentin to 300mg tid, MRI of the brain and cervical spine were obtained and were normal. Patient also taking topiramate 100mg for preventative and zomig for abortive. Since last visit: botox doing well for migraines. Still taking topiramate 100mg, was on gabapentin for shoulder (doing PT for this). Decreased gabapentin back down due to swelling in legs. Since lastappointment, patient notes overall improvement in her postconcussive symptoms. Symptoms notes improved concentration, sleep, headaches. Since last appointment she was given first trial of Botox for migraine, notes significant improvement in her headaches since her first round. Patient is still endorsing some instability issues. States that this can occur anytime of day, briefly, feels as if she is off balance for just a second. Unsure if this is improved at all since her concussion. Notes that she ended up falling the other day from her tanning bed due to this imbalance issue. No loss of consciousness, no injury, no lightheadedness, patient states she is unsure how she ended up on the ground. No tongue biting, no incontinence, no seizure-like activity to her knowledge. Notes other instances of imbalance occur anytime of day, notes that she will be standing at work and all of a sudden become slightly off balance as if 1 foot is heavier than another. Resolves within seconds, no other falls. This happens daily, multiple times a day. She is unsure if it favors 1 side. Patient denies anyroom spinning, no lightheadedness, no presyncope, no palpitations. Patient denies any weakness withthis, but states that she recently went back to going to the gym, unsure if she is dehydrated as well. Notes that she does go to physical therapy once a week for her chronic shoulder pain, they have been addressing her neck and back pain as well secondary to the fall. Notes that overall she is at 80% of her baseline. Sleep:good Concentration: good Mood: good Headaches:better, improved with botox REVIEW OF SYSTEMS GENERAL:No weight loss, malaise or fevers. HEENT:Negative for frequent or significant headaches, No changes in hearing or vision, no nose bleeds or other nasal problems NECK:Negative for lumps, goiter, pain and significant neck swelling RESPIRATORY: Negative for cough, wheezing or shortness of breath. CARDIOVASCULAR: Negative for chest pain, leg swelling or palpitations. GASTROINTESTINAL: Negative for abdominal discomfort, blood in stools or black stools or change in bowel habits GENITOURINARY: No history of dysuria, frequency or incontinence MUSCULOSKELETAL: Negative for joint pain or swelling, back pain or muscle pain. NEUROLOGIC:Negative for focal numbness or weakness, headaches and dizziness or syncope, vision changes, speech/languag changes - EXCEPT that as per HPI above. SKIN:Negative for lesions, rash, and itching. PSYCHIATRIC: Negative for sleep disturbance, mood disorder and recent psychosocial stressors. HEMATOLOGIC/LYMPHATIC/IMMUNOLOGIC:Negative for prolonged bleeding, bruising easily or swollen nodes. ENDOCRINE: Negative for cold or heat intolerance, polyuria, polydipsia and goiter. The remainder of the ROS was reviewed and is negative. LAB/IMAGING: Those performed since patient's last visit have been reviewed. MRI cervical spine 02/28/23 IMPRESSION: Unremarkable MRI cervical spine without contrast. Anatomic Variant: None. Assume 7 cervical vertebrae with counting from the craniocervical junction. MRI brain WO 02/28/23 IMPRESSION: Unremarkable MRI brain without contrast. MEDICATIONS: MAGNESIUM ORAL Take by mouth. gabapentin (NEURONTIN) 300 mg capsule Take one po qhs LORazepam (ATIVAN) 1 mg tablet One tab one hour before test tiZANidine (ZANAFLEX) 4 mg tablet Take 1 tablet by mouth every 8 hours as needed. FLUoxetine (PROZAC) 20 mg capsule Take 1 capsule by mouth once daily. ZOLMitriptan (ZOMIG) 5 mg tablet Take 1 tablet by mouth once daily. prn topiramate (TOPAMAX) 100 mg tablet Take 1 tablet by mouth twice daily. meclizine (ANTIVERT) 25 mg tab Take 25 mg by mouth once daily. Takes two tabs in am lisinopril (ZESTRIL, PRINIVIL) 10 mg tablet Take 1 tablet by mouth once daily. BIPAP dulaglutide (TRULICITY) 0.75 mg/0.5 mL pen injector Inject 0.75 mg subcutaneously one time a week. Inject dose once per week. Discard Pen After albuterol HFA (VENTOLIN HFA) 90 mcg/actuation inhaler Inhale 2 Puffs as instructed every 4 hours asneeded for wheezing/shortness of breath. fexofenadine (ALMA ALLERGY) 180 mg tablet Take 1 tablet by mouth once daily. omeprazole (PRILOSEC) 20 mg capsule Take 1 capsule by mouth daily before breakfast. 1/2 hr before meal. levonorgestrel (KYLEENA) 17.5 mcg/24 hrs (5 yrs) 19.5 mg IUD 1 Each by INTRAUTERINE route as directed. Ipratropium [place] (ATROVENT) 0.03 % nasal spray Use 2 Sprays in the nose every 12 hours. Herrick-3 Fatty Acids (FISH OIL) 500 mg cap Take 1 capsule by mouth once daily. blood sugar diagnostic (BLOOD GLUCOSE TEST) test strip Test blood sugar(s) 1 times daily. Dx: Type 2 DM - Controlled E11.9 Insulin: Yes Lancets lancets Test blood sugar(s) 1 times daily. Dx: Type 2 DM - Controlled E11.9 Insulin: No Vmgaetzd-Ts-Swl-Fe-FA tab Take 1 tablet by mouth once daily. HISTORIES PAST MEDICAL HISTORY Diagnosis Date Acute cholecystitis Cholecystitis Anxiety 06/07/2014 Chronic back pain Kidney stones LETITIA treated with BiPAP Type 2 diabetes mellitus (HCC) FAMILY HISTORY Problem Relation Age of Onset Alcohol/Drug Mother Heart Father [place] Cancer Father PANCREATIC CANCER Diabetes Father Coronary Artery Disease Father Anxiety disorder Sister Depression Sister Depression Brother Cancer Maternal Grandmother LUNG CANCER Diabetes Maternal Grandfather Heart Paternal Grandmother TRIPLE BYPASS SURGERY SOCIAL HISTORY Social History Tobacco Use Smoking status: Never Smokeless tobacco: Never Vaping Use Vaping Use: Never used Substance Use Topics Alcohol use: No Drug use: No PHYSICAL EXAMINATION BP 145/76 Pulse 61 Temp 36.6 C (97.8 F) Resp 16 Wt 130.1 kg (286 lb 12.8 oz) LMP 01/02/2023 (Approximate) SpO2 98% BMI 44.92 kg/m GENERAL EXAM: General appearance: NAD, pleasant. HEENT: NC/AT, nasal congestion absent, no oral lesions, membranes moist. NECK: No masses, supple. Lungs: Breathing comfortably Extr: Moves all extremities without difficulty Skin: Cool to touch. No rash. NEUROLOGICAL EXAM: General: Awake, alert, oriented x3 (person,place,time), speech fluent, no dysarthria; comprehension, naming, repetition intact. Short and intermission coordinator memory intact. CN: PERRL, EOMI and without nystagmus, VFF to confrontation, facial sensation and strength are normal and symmetric, hearing is intact to finger rub bilaterally, palate and tongue movements are intact and symmetric. SCM and trapezius strength normal. Motor: Normal tone, bulk and strength (5/5) bilaterally (throughout extremities x4). Reflexes: 2/4 and symmetric, plantar stimulation is flexor. Coordination: FNF intact. No tremors. Sensation: LT, Negative extinction to double simultaneous stimulation. No evidence of neglect. Gait: Narrow based and stable with normal stride and arm swing. Romberg normal. Assessment and Plan: ASSESSMENT/PLAN: 1. Post concussion syndrome - ICD9: 310.2, ICD10: F07.81 (primary diagnosis) 2. LETITIA (obstructive sleep apnea) - ICD9: 327.23, ICD10: G47.33 3. Intractable acute post-traumatic headache - ICD9: 339.21, ICD10: G44.311 Patient overall much improved since last appointment. Notes improvement in her concentration, sleep, headaches overall. Does note that she recently had her first round of Botox injection for migraine, notes significant improvement with this. Also notes improvement in her neck pain by being in physical therapy. Still endorses periods of imbalance multiple times a day, feels clumsy as if one foot is heavier than another, unsure if it favors a side. Lasts for seconds, did have one fall after tanning, no LOC, no head injury, no dizziness. No post ictal state, no tongue biting or incontinence, thinks that she was dehydrated. Unclear etiology to this paroxysmal periods of imbalance. MRI of the cervical spine and brain were normal. Due to the atypical nature and brief episodes, will rule out seizure with routine EEG although low suspicion. Patient to continue botox for migraine, would like to go back to [place], noted that I do botox in this location and patient would like to transfer. Patient notes compliance with CPAP, doing well. No new symptoms, no new concerns. Patient otherwise doing well. Patient agreeable to treatment planof care, all questions were answered. Patient to follow up with sleep provider in three months, andwill follow up with myself for botox in April. Fatuma Beckford PA-C I spent a total of 40 minutes on the date of the service which included preparing to see the patient, [id number] patient care, completing clinical documentation, obtaining and/or reviewing separately obtained history, performing a medically appropriate examination, counseling and educating the pat ient/family/caregiver, and ordering medications, tests, or procedures. This document has been created with the use of voice recognition technology. It may contain inaccuracies: (e.g. misspellings, inaccurate syntax or word sense) that have escaped review. documented in this encounterFairfield [facility] Center05-02-2023 History of Present illness Narrative* Galina Camacho MD - 03/05/2023 8:52 AM EDT Tori is a 42 year old who presents for an annual gynecologic exam without complaints. Happier w/ Kyleen thanMirena Menses: minimal spotting w/ IUD. Contraception: IUD- Kyleena HPV vaccine: No Last Pap: 12/23/2018 normal HPV: 12/23/2018 negative History of abnormal pap: No Last mammogram: ordered Sexually active: Yes OB History T1 L1 SAB0 IAB0 Ectopic0 Multiple0 Live Births1 Change Management Analyst History LMP: 01/02/2023 (Approximate), IUD Age at Menarche: Age at First : Age at Menopause: Change Management Analyst History Comments: Sexual Activity: Not Currently; No partner data on record Contraception: No contraception data on record PAST MEDICAL HISTORY Diagnosis Date Acute cholecystitis Cholecystitis Anxiety 06/07/2014 Chronic back pain Kidney stones LETITIA treated with BiPAP Type 2 diabetes mellitus (HCC) PAST SURGICAL HISTORY Procedure Laterality Date DELIVERY ONLY 2005 , low cervical INSERT INTRAUTERINE DEVICE 10/19/08 mirena LAPAROSCOPY SURG CHOLECYSTECTOMY 2005 Cholecystectomy, lap (Rowena Monet) PAST SURGICAL HISTORY OF 2019 stent into kidney REMOVE IUD 07/13/2010 FAMILY HISTORY Problem Relation Age of Onset Alcohol/Drug Mother Heart Father [place] Cancer Father PANCREATIC CANCER Diabetes Father Coronary Artery Disease Father Anxiety disorder Sister Depression Sister Depression Brother Cancer Maternal Grandmother LUNG CANCER Diabetes Maternal Grandfather Heart Paternal Grandmother TRIPLE BYPASS SURGERY SOCIAL HISTORY Social History Tobacco Use Smoking status: Never Smokeless tobacco: Never Vaping Use Vaping Use: Never used Substance Use Topics Alcohol use: No Drug use: No REVIEW OF SYSTEMS Abdomen: No abdominal pain, nausea, vomiting, diarrhea, or constipation. No bloating, early satiety, indigestion, or increased flatulence. Bladder: No dysuria, gross hematuria, urinary frequency, urinary urgency, or incontinence. Breast: No breast lumps, nipple d/c, overlying skin changes, redness or skin retraction. Allergies and current medication updated:Yes EXAM: BP 122/82 Ht 5' 7 (1.70m) Wt 287 lb (130.2kg) LMP 01/02/2023 BMI 44.94 kg/(m^2). GENERAL: pleasant, female in no apparent distress HEENT: Normocephalic, atraumatic, mucus membranes moist, and no lesions NECK: Supple, full range of motion, no adenopathy, and thyroid normal DERMATOLOGY: Normal, without lesions, non-icteric, and non-hirsute BREAST: soft, non-tender, symmetric, no dominant mass, normal nipple-areolar complex, no lymphadenopathy, and no nipple discharge CHEST: Normal inspiratory effort ABDOMEN: soft, non-tender, no masses, and pannus large PELVIC: external genitalia normal, normal Bartholin's glands, urethra, [place]'s glands, no vulvar lesions, no cervical lesions, good vaginal support, physiologic discharge present, normal appearing perineal body and perianal region, IUD strings 2 cm BIMANUAL: uterus normal size, shape and consistency, no adnexal masses, and non- tender, limited by habitus RECTOVAGINAL: deferred. NEURO: alert and oriented x3,exam grossly non-focal EXTREMITIES: normal ASSESSMENT/PLAN: 1) Health maintenance: Pap/HPV up to date. 2) Contraception: IUD. Contraceptive options reviewed and information provided. 3) STD screening: Declined STD check. 4) Follow up one year or sooner as needed Galina Camacho MD documented in this encounterFair[facility] Center05-01-2023 Miscellaneous Notes* Telephone Encounter - Nirmala Cordelia SÁNCHEZ - 03/04/2023 12:52 PM EDT Left detailed message for patient. * Telephone Encounter - Ivette Grimes MD - 03/04/2023 12:12 PM EDT Sugar is only 6.1. not sure monjouro is any different that trulicity and I would not even increase dose based on that. * Telephone Encounter - Cary Goldsmith LPN - 03/04/2023 12:09 PM EDT Pt calling in regards to lab work she had done. Pt reports her A1C went up and she would like to switch he DM medication to Mounjaro. Please advise pt. Pharmacy is [facility]. Cary Goldsmith LPN documented in this encounterFairfield [facility] Center04-28-2023 History of Present illness Narrative* Ivette Mejia Jr., MD - 03/01/2023 10:20 AM EDT ESTABLISHED PATIENT VISIT CHIEF COMPLAINT: Follow Up HISTORY OF PRESENT ILLNESS: Toir Gray is a 42 year old female, with a PMH significant for and per last office visit of 12/07/22: 1. Post concussion syndrome - ICD9: 310.2, ICD10: F07.81 (primary diagnosis) 2. Intractable acute post-traumatic headache - ICD9: 339.21, ICD10: G44.311 3. Dizziness - ICD9: 780.4, ICD10: R42 4. Cervicalgia - ICD9: 723.1, ICD10: M54.2 5. History of migraine - ICD9: V12.49, ICD10: Z86.69 Patient with known history of chronic migraine headaches despite use of Topamax 100mg BID and otherfailed meds in the past, now pending botox therapy. Patient now presents s/p head trauma as above with various associated symptoms including worsening and change in headache pattern, dizziness, cognitive changes -- constellation of symptoms suggestive of post-concussion syndrome. Dx d/w pt and explained that this could take days to weeks to recover. No objective means to verify diagnosis, and would be based on clinical history. That said, given persistence of symptoms feel appropriate to get MRI brain and C spine to evaluate for any other intracranial process or spinal process associated with trauma that could be cause of symptoms and may not have been identified on CT imaging. Will hold onIV contrast due to pt reporting prior reaction (could not find in documents). As for therapy, preference would be to place on steroid titration to reduce ongoing inflammation and break headache cycle, but due to diabetes and known steroid allergy, will instead increase patient's current dose of gabapentin to 300mg TID with possible increase to evening dose to 600mg. SE and ADRs d/w pt. Note no renal impairment on prior labs in Scanned Docs. Patient will follow up after imaging complete. No other changes in meds at this time. 6. LETITIA (obstructive sleep apnea) - ICD9: 327.23, ICD10: G47.33 AHI normalized per download with evidence of PAP compliance as documented above. Reminded to clean and replace equipment regularly. No other recommendations at this time. MRI brain and C spine completed and both unremarkable per rad reports. Images reviewed and agree with rad reports that there are no changes that would explain patient's symptoms. Per reports: Acute Change: There is no evidence of restricted diffusion to suggest an acute infarct. Hemorrhage: No evidence of prior parenchymal hemorrhage on the gradient echo images. Mass Lesion/ Mass Effect: No evidence of an intracranial mass or extra-axial fluid collection. No significant mass effect. Chronic Change: The white matter is within normal limits of signal intensity for age. Parenchyma: No significant volume loss for age. The brain parenchyma is otherwise within normal limits of signal intensity and morphology. Ventricles: Normal caliber and morphology. Skull Base: Hypothalamic and pituitary region are grossly normal. Craniocervical junction is normal. No significant marrow replacement process. Vasculature: Major intracranial arterial structures, and dural venous sinuses show typical flow void, suggesting patency by spin echo criteria. Cord: The visualized cord is within normal limits of signal intensity and morphology. Bone marrow signal/fracture: No evidence of pathologic marrow infiltration. No evidence of prior fracture. Cervical soft tissues: The paraspinal soft tissues are within normal limits. C2-C3: Canal and foramina are patent. C3-C4: Canal and foramina are patent. C4-C5: Canal and foramina are patent. C5-C6: Canal and foramina are patent. C6-C7: Canal and foramina are patent. C7-T1: Canal and foramina are patent. Pt cancelled appointment. Ivette Mejia MD documented in this encounterFairfield Medical Center04-28-2023 Miscellaneous Notes* Telephone Encounter - Anni Sauceda Pss - 03/01/2023 9:54 AM EDT PCP requesting the patient have a follow-up with MIKE. Spoke with the patient and she wasn't able to take the time available. The patient is scheduled for a follow-up appointment with the PA. The patient is aware of the appointment. documented in this encounterFairfield Medical Center04-27-2023 History of Present illness Narrative* Ivette Grimes MD - 02/28/2023 2:23 PM EDT Patient presents with: Follow Up: Workers comp HPI: Patient presents today for office visit for follow up. Just had her MRI of her brain and her neck which were normal. Headaches are starting to come back some. Did have botox which helped. Her memory is still an issue. Is still not improving. Is on topamax but has been on that for some time. Has to make a follow up appt with Dr Mejia after her imaging. She does notice some swelling in her feet at times. She is not sure gabapentin at a higher dose helped her headaches. Discussed it can cause swelling. Does get charley horses in her legs. Has been working out more. No redness. Back to work. Still with some fullness in in left posterior neck. Us did not show any definitive mass, ct was recommended. MEDICATIONS: Current Outpatient Medications Medication Sig LORazepam (ATIVAN) 1 mg tablet One tab one hour before test tiZANidine (ZANAFLEX) 4 mg tablet Take 1 tablet by mouth every 8 hours as needed. FLUoxetine (PROZAC) 20 mg capsule Take 1 capsule by mouth once daily. ZOLMitriptan (ZOMIG) 5 mg tablet Take 1 tablet by mouth once daily. prn topiramate (TOPAMAX) 100 mg tablet Take 1 tablet by mouth twice daily. meclizine (ANTIVERT) 25 mg tab Take 25 mg by mouth once daily. Takes two tabs in am lisinopril (ZESTRIL, PRINIVIL) 10 mg tablet Take 1 tablet by mouth once daily. gabapentin (NEURONTIN) 300 mg capsule Take 1 tablet in AM, afternoon and bedtime. If after 2 days symptoms persist, increase to 1 tab in AM, afternoon and 2 tabs at bedtime. BIPAP dulaglutide (TRULICITY) 0.75 mg/0.5 mL pen injector Inject 0.75 mg subcutaneously one time a week. Inject dose once per week. Discard Pen After albuterol HFA (VENTOLIN HFA) 90 mcg/actuation inhaler Inhale 2 Puffs as instructed every 4 hours asneeded for wheezing/shortness of breath. fexofenadine (ALMA ALLERGY) 180 mg tablet Take 1 tablet by mouth once daily. omeprazole (PRILOSEC) 20 mg capsule Take 1 capsule by mouth daily before breakfast. 1/2 hr before meal. levonorgestrel (KYLEENA) 17.5 mcg/24 hrs (5 yrs) 19.5 mg IUD 1 Each by INTRAUTERINE route as directed. Ipratropium [place] (ATROVENT) 0.03 % nasal spray Use 2 Sprays in the nose every 12 hours. metroNIDAZOLE (METROGEL) 0.75 % Topical Gel Apply to affected area twice daily. Herrick-3 Fatty Acids (FISH OIL) 500 mg cap Take 1 capsule by mouth once daily. blood sugar diagnostic (BLOOD GLUCOSE TEST) test strip Test blood sugar(s) 1 times daily. Dx: Type 2 DM - Controlled E11.9 Insulin: Yes Lancets lancets Test blood sugar(s) 1 times daily. Dx: Type 2 DM - Controlled E11.9 Insulin: No Rsmvbebl-Bi-Ikj-Fe-FA tab Take 1 tablet by mouth once daily. No current facility-administered medications for this visit. ALLERGIES: ALLERGIES Allergen Reactions Lidocaine Hives Steroids [Betametha* Hives PAST MEDICAL HISTORY Diagnosis Date Acute cholecystitis Cholecystitis Anxiety 06/07/2014 Chronic back pain Kidney stones LETITIA treated with BiPAP Type 2 diabetes mellitus (HCC) PAST SURGICAL HISTORY Procedure Laterality Date DELIVERY ONLY 2005 , low cervical INSERT INTRAUTERINE DEVICE 10/19/08 mirena LAPAROSCOPY SURG CHOLECYSTECTOMY 2006 Cholecystectomy, lap (Rowena Monet) PAST SURGICAL HISTORY OF 2019 stent into kidney REMOVE IUD 07/13/2010 FAMILY HISTORY Problem Relation Age of Onset Alcohol/Drug Mother Heart Father [place] Cancer Father PANCREATIC CANCER Diabetes Father Coronary Artery Disease Father Anxiety disorder Sister Depression Sister Depression Brother Cancer Maternal Grandmother LUNG CANCER Diabetes Maternal Grandfather Heart Paternal Grandmother TRIPLE BYPASS SURGERY Social History Tobacco Use Smoking status: Never Smokeless tobacco: Never Vaping Use Vaping Use: Never used Substance Use Topics Alcohol use: No Drug use: No Reviewed current medications, allergies, past medical history, surgical history, family history andsocial history today. REVIEW OF SYSTEMS No chest pain or shortness of breath. All other reviewed and negative other than HPI. VITALS: BP 138/72 Pulse 79 Wt 131.5 kg (290 lb) LMP 01/02/2023 (Approximate) SpO2 97% BMI 45.42 kg/m Last 4 Encounter Wt Readings: Date: Wt: 02/28/2023 131.5 kg (290 lb) 01/31/2023 130.2 kg (287 lb) 01/17/2023 128.8 kg (284 lb) 01/04/2023 128.4 kg (283 lb) PHYSICAL EXAMINATION: General appearance: Well appearing, alert, in no acute distress, well-hydrated, well nourished. Skin: Skin color, texture, turgor normal, no suspicious rashes or lesions Head: Normocephalic, no masses, lesions, tenderness or abnormalities Neck: swelling in left posterior neck. Non pulsatile. No redness or warmth Lungs: Lungs clear to auscultation. No wheezing, rhonchi, rales Heart: RRR without murmur, gallop, or rubs. No ectopy Abdomen: Normal abdominal exam, Abdomen soft, non-tender. Bowel sounds normal. No masses, organomegaly Extremities: No deformities, edema, skin discoloration, clubbing or cyanosis. Good capillary refill. , No cords. No calf tenderness. Bridget's sign negative. ASSESSMENT/PLAN: 1. Soft tissue mass - ICD9: 729.99, ICD10: M79.89 (primary diagnosis) - CT NECK SOFT TISSUE W IVCON - IV CONTRAST (RADIOLOGY PROCEDURE) 2. Post concussive syndrome - ICD9: 310.2, ICD10: F07.81 - follow with neurology 3. Essential (primary) hypertension - ICD9: 401.9, ICD10: I10 - good control - Continue current medication(s) - Goal of BP <130/80 4. Type 2 diabetes mellitus with microalbuminuria, with long-term current use of insulin (HCC) - ICD9: 250.40, 791.0, V58.67, ICD10: E11.29, R80.9, Z79.4 - HGB A1C - ALBUMIN/CREAT RATIO RND UR 5. Headache, unspecified headache type - ICD9: 784.0, ICD10: R51.9 - call if any worsening. Decrease gabapentin to 300 mg hs. 6. Myalgia - ICD9: 729.1, ICD10: M79.10 - CBC + DIFF - IRON + TIBC - BASIC METABOLIC PNL - MAGNESIUM BLD Ivette Grimes MD documented in this [facility]04-27-[facility]23 History of Present illness Narrative* Juliana Perez RT(Shreya) - 02/28/2023 8:00 AM EDT Radiology Service Progress Note PATIENT NAME: Tori Gray DATE OF SERVICE: February 28, 2023 TIME: 8:53 AM PATIENT IDENTITY VERIFICATION COMPLETED USING TWO (2) IDENTIFIERS: Name and Date of confirmedby patient verbally. FALL SCREENING: Has the patient had 2 falls in the last year or 1 fall with injury or currently using an Ambulatory Assistive Device (Walker, Cane, Wheelchair, Crutches, etc.)? No PATIENT GENDER DATA: Female. status: : No status: NO. PATIENT RELEVANT IMPLANT DATA REVIEWED: Yes RADIOLOGY DEPARTMENT: MR; Exam(s) Completed: Head: Routine Brain Spine: Cervical spine PERIPHERAL IV DATA: Not applicable SIGNED BY: RT Fabiana(Shreya) February 28, 2023 8:53 AM documented in this encounterFair[facility]04-26-2023 Miscellaneous Notes* Telephone Encounter - Mirna Santos Ma - 02/27/2023 1:41 PM EDT Patient left vm giving provider message Mirna Santos Ma * Telephone Encounter - Ivette Grimes MD - 02/27/2023 12:44 PM EDT Rx sent. Just make sure someone drives her * Telephone Encounter - Priscila France RN - 02/27/2023 9:55 AM EDT Pt called and states she is going to have 2 MRIs tomorrow and she is starting to panic over it. Shereports she gets claustrophobic and having 2 back to back she may need something to help her get through it. Pt is asking if the provider could send her something to [facility] pharmacy just to take for tomorrow. Please call and advise. documented in this encounterFairfield [facility] Center04-24-2023 Miscellaneous Notes* Telephone Encounter - Adriana Swanson MA - 02/25/2023 10:44 AM EDT Patient has been identified by name and date of : Yes Requested Prescriptions Pending Prescriptions Disp Refills tiZANidine (ZANAFLEX) 4 mg tablet 20 tablet 0 Sig: Take 1 tablet by mouth every 8 hours as needed. RX INSTRUCTIONS: Patient aware RX will be sent to pharmacy. No need to notify patient. Patient last office visit: 01/31/23 Patient next office visit: 02/28/23 Adriana Swanson MA documented in this encounterFairfield [facility] Center04-14-2023 History of Present illness Narrative* Grace Coronel APRN.ELECTROTYPER HELPER - 02/15/2023 3:32 PM EDT Images from the original note were not included. PSYC FOLLOW UP - PSYCHIATRIC PROGRESS NOTE DIAGNOSIS: Generalized Anxiety Disorder - symptoms managed well with Prozac MDD, recurrent, in full remission GAF: -80-71 If symptoms are present, they are transient and expectable reactions to psychosocial stressors TREATMENT PLAN: Continue Prozac at the same dose. Continue individual psychotherapy with the current provider. Transfer patient's care back to PCP as patient has achieved remission on the current dose of Prozac. Follow up as needed The effects and side effects of Prozac were reviewed in detail with the patient. She is in agreement with the treatment plan and aware to reach out with any questions, concerns, or worsening of symptoms. CC: Follow up regarding mood and anxiety With the patient consent, visit was performed virtually. I have communicated my name and active licensure. The patient's identity and physical location wereverified at the time of this visit. Either the patient or their legal front office representative has been informed of the risks and benefits of -- and alternatives to -- treatment through a remote evaluation andconsents to proceed with the evaluation remotely. HPI: Tori Gray is a 42 year old Female with a history of VAHE and MDD presenting today for follow-up. Date of last visit: 11/16/2022 Plan from last visit: Continue Prozac at the same dose to address mood and anxiety. Start individual psychotherapy. Follow up in 3 months. Consider transfer of care back to PCP if patient does well on the current dose of her medication atthe next visit. Today Tori shares that she is doing well. On November 24 she fell at work and she had a concussion. She was found unresponsive. She was off work for 6 weeks. She has been coping with it better. She has post concussive symptoms. She has been forgetting some things. Has noticed it improving. It was hard for her to be off work. She felt that Prozac helped her handle the situation better. It was too challenging for her to get out of bed. Feels like this is still a good dose for her. She has been seeing a counselor at the [facility]. Has been working with him every 3 weeks. Feels that it is going well. Interval Progress: Improved Risks and benefits of the medication, including any black box warnings, were discussed with the patient. Social History: See HPI PATIENT DATA: Generalized Anxiety Disorder Scale (VAHE-7) VAHE - 7 SCORES 10/05/2022 11/14/2022 02/13/2023 VAHE-7 Score 8 2 6 (0-4) minimal anxiety, (5-9) mild anxiety, (10-14) moderate anxiety, (15-21) severe anxiety Patient Health Questionnaire (PHQ-9) PHQ-9 10/05/2022 11/14/2022 02/13/2023 Score 16 2 3 (0-4) minimal depression, (5-9) mild depression, (10-14) moderate depression, (15-19) moderately severe depression, (20-27) severe depression ROS: See HPI General: Negative for fever, malaise, unintentional weight loss HEENT: Negative for recent changes in vision or hearing, no nasal drainage Respiratory: Negative for cough, wheezing or SOB Cardiovascular: Negative for chest pain GI: Negative for nausea, vomiting, change in bowel habits MUSCULOSKELETAL: Negative for acute back or joint pain SKIN: Negative for rash NEURO: Negative for headaches, seizures, focal neurological deficits All other systems negative. VITAL SIGNS: BP Temp Pulse Resp SpO2 MENTAL STATUS EXAMINATION: Appearance: Appropriately groomed, appears stated age Behavior: Appropriately engaged Psychomotor: No psychomotor agitation Cognition Level of Consciousness: Awake and alert. No fluctuation in wakefulness. Orientation: Grossly oriented Memory: Intact Attention/Concentration: Good Fund of Knowledge: Able to demonstrate an awareness of current events. Mood: Euthymic Affect: Congruent to mood Speech/Language: Appropriate tone, prosody, travis, phonetics, and syntax Thought Form: Goal-directed. No loosening of associations. Thought Content: No delusions noted or endorsed. Perceptual Disturbances: Did not appear to respond to auditory stimuli. Safety: Suicidal Ideations: No suicidal ideation, intent or plan. Homicidal Ideations: No homicidal ideation, intent or plan. Insight: Appropriate Judgment: Appropriate I spent a total of 28 minutes on the date of the service which included preparing to see the patient, [id number] patient care, completing clinical documentation, and counseling and educating the patient/family/caregiver, ordering medications/labs, and communicating with other healthcare providers. Grace Coronel, THOM.ELECTROTYPER HELPER February 15, 2023 3:32 PM This note was partially generated using [email or web address] voice recognition system. Note was reviewed for accuracy. There may be minor misspellings or grammar miscues with [employer] voice recognition. documented in this encounterFairfield Medical Center04-12-2023 Miscellaneous Notes* Telephone Encounter - Nirmala Storey LPN - 02/13/2023 5:54 PM EDT [facility] message sent to patient. * Telephone Encounter - Dennise Robles - 02/11/2023 8:56 AM EDT Message left for patient to return call for results. Dennise Robles * Telephone Encounter - Ivette Grimes MD - 02/11/2023 8:01 AM EDT Us is normal. No mass seen. If continues to have issues can consider ct of neck * Telephone Encounter - Quinn Lazo LPN - 02/09/2023 9:46 AM EDT Results of US head/neck soft tissue received from [facility] via fax. Results scanned into Epic. (May takea few minutes before viewable in Epic.) Quinn Lazo LPN documented in this encounterFairfield [facility] Center04-10-2023 Miscellaneous Notes* Telephone Encounter - Quinn Lazo LPN - 02/11/2023 1:15 PM EDT Patient phones requesting refills as follows: Requested Prescriptions Pending Prescriptions Disp Refills tiZANidine (ZANAFLEX) 4 mg tablet 20 tablet 0 Sig: Take 1 tablet by mouth every 8 hours as needed. APRIL 01/31/23 NOV 02/28/23 Please review and advise. Quinn Lazo LPN documented in this encounterFairfield Medical Center03-30-2023 Miscellaneous Notes* Telephone Encounter - Juliana Murphy Ma - 01/31/2023 10:31 AM EDT Faxed order to [facility] per patient's request * Telephone Encounter - Ivette Grimes MD - 01/31/2023 9:44 AM EDT While here patient has noted an intermittent lump in left neck. Slightly sore to touch. Comes andgoes. Is a nonspecific swelling on left posterior neck. Not sure is related to her fall. Will run throughregular [employer]. Set up us at [facility]. Will run through regular insurance. documented in this encounterFairfield Medical Center03-30-2023 History of Present illness Narrative* Ivette Grimes MD - 01/31/2023 9:16 AM EDT Patient presents with: Follow Up HPI: Patient presents today for office visit for follow up. Headaches have been bad. Had botox last week and maybe took the edge off. Was told could take 2-3 treatments before full effectiveness seen. Workers Comp still not approving her MRI. Asking about changing maxalt to another medication? Lump is smaller today than it was. She did notice her legs went numb when she rolled over. Will check again on what is going on with her comp claim. Notes back at work is coming along just has to think about what she is doing due to her memory. Headaches are all day. Not the worst headache she has had but is painful. These are worse since the fall. No new vision or speech changes. No new numbness or weakness normally. Can have occasional balance issues with headaches. MEDICATIONS: Current Outpatient Medications Medication Sig ondansetron (ZOFRAN) 4 mg tablet Take 1 tablet by mouth every 8 hours as needed for nausea/vomiting. tiZANidine (ZANAFLEX) 4 mg tablet Take 1 tablet by mouth every 8 hours as needed. topiramate (TOPAMAX) 100 mg tablet Take 1 tablet by mouth twice daily. meclizine (ANTIVERT) 25 mg tab Take 25 mg by mouth once daily. Takes two tabs in am rizatriptan (MAXALT) 10 mg tablet Take 1 tablet by mouth as needed (at onset of headache. May repeat after 2 hours.). Do not exceed 30 mg per day. lisinopril (ZESTRIL, PRINIVIL) 10 mg tablet Take 1 tablet by mouth once daily. gabapentin (NEURONTIN) 300 mg capsule Take 1 tablet in AM, afternoon and bedtime. If after 2 days symptoms persist, increase to 1 tab in AM, afternoon and 2 tabs at bedtime. FLUoxetine (PROZAC) 20 mg capsule Take 1 capsule by mouth once daily. BIPAP dulaglutide (TRULICITY) 0.75 mg/0.5 mL pen injector Inject 0.75 mg subcutaneously one time a week. Inject dose once per week. Discard Pen After albuterol HFA (VENTOLIN HFA) 90 mcg/actuation inhaler Inhale 2 Puffs as instructed every 4 hours asneeded for wheezing/shortness of breath. fexofenadine (ALMA ALLERGY) 180 mg tablet Take 1 tablet by mouth once daily. omeprazole (PRILOSEC) 20 mg capsule Take 1 capsule by mouth daily before breakfast. 1/2 hr before meal. levonorgestrel (KYLEENA) 17.5 mcg/24 hrs (5 yrs) 19.5 mg IUD 1 Each by INTRAUTERINE route as directed. Ipratropium [place] (ATROVENT) 0.03 % nasal spray Use 2 Sprays in the nose every 12 hours. metroNIDAZOLE (METROGEL) 0.75 % Topical Gel Apply to affected area twice daily. Herrick-3 Fatty Acids (FISH OIL) 500 mg cap Take 1 capsule by mouth once daily. blood sugar diagnostic (BLOOD GLUCOSE TEST) test strip Test blood sugar(s) 1 times daily. Dx: Type 2 DM - Controlled E11.9 Insulin: Yes Lancets lancets Test blood sugar(s) 1 times daily. Dx: Type 2 DM - Controlled E11.9 Insulin: No Kizkwbqu-Ob-Odr-Fe-FA tab Take 1 tablet by mouth once daily. No current facility-administered medications for this visit. ALLERGIES: ALLERGIES Allergen Reactions Lidocaine Hives Steroids [Betametha* Hives PAST MEDICAL HISTORY Diagnosis Date Acute cholecystitis Cholecystitis Anxiety 06/07/2014 Chronic back pain Kidney stones LETITIA treated with BiPAP Type 2 diabetes mellitus (HCC) PAST SURGICAL HISTORY Procedure Laterality Date DELIVERY ONLY 2005 , low cervical INSERT INTRAUTERINE DEVICE 10/19/08 mirena LAPAROSCOPY SURG CHOLECYSTECTOMY 2005 Cholecystectomy, lap (Rowena Monet) PAST SURGICAL HISTORY OF 2019 stent into kidney REMOVE IUD 07/13/2010 FAMILY HISTORY Problem Relation Age of Onset Alcohol/Drug Mother Heart Father [place] Cancer Father PANCREATIC CANCER Diabetes Father Coronary Artery Disease Father Anxiety disorder Sister Depression Sister Depression Brother Cancer Maternal Grandmother LUNG CANCER Diabetes Maternal Grandfather Heart Paternal Grandmother TRIPLE BYPASS SURGERY Social History Tobacco Use Smoking status: Never Smokeless tobacco: Never Vaping Use Vaping Use: Never used Substance Use Topics Alcohol use: No Drug use: No Reviewed current medications, allergies, past medical history, surgical history, family history andsocial history today. REVIEW OF SYSTEMS All other reviewed and negative other than HPI. VITALS: BP 120/82 Pulse 65 Wt 130.2 kg (287 lb) LMP 01/02/2023 (Approximate) SpO2 98% BMI 44.95 kg/m Last 4 Encounter Wt Readings: Date: Wt: 01/17/2023 128.8 kg (284 lb) 01/04/2023 128.4 kg (283 lb) 12/26/2022 128.4 kg (283 lb) 12/14/2022 125.6 kg (277 lb) PHYSICAL EXAMINATION: General appearance: Well appearing, [...] discoloration, clubbing or cyanosis. Good capillary refill. Neuro: Gait normal. Reflexes normal and symmetric. Sensation grossly intact. ASSESSMENT/PLAN: 1. Post concussive syndrome - ICD9: 310.2, ICD10: F07.81 (primary diagnosis) - still persistant Still waiting work up per neuro. Will have staff check on comp progress. Is backto work. Red flags for re-assessment reviewed with patient in detail. Red flags for re-assessment reviewed with patient in detail. 2. Headache, unspecified headache type - ICD9: 784.0, ICD10: R51.9 - as above. Change headache meds. 3. Injury of neck, subsequent encounter - ICD9: V58.89, 959.09, ICD10: S19.9XXD - as above. Ivette Grimes MD documented in this encounterFairfield Medical Center03-23-2023 NoteHNO ID: [id number] Author: Gloria Oh MA Service: ? Author Type: Stereotyper Apprentice Type: Progress Notes Filed: 01/24/2023 11:07 AM Note Text: Review of Systems Constitutional: Negative for activity change, chills, fever and unexpected weight change. Gastrointestinal: Negative for bowel retention or incontinence Genitourinary: Negative for difficulty urinating. Negative for bladder retention or incontinence Musculoskeletal: Positive for arthralgias, back pain, myalgias, neck pain and neck stiffness. Negative for gait problem and joint swelling. Neurological: Positive for weakness and numbness. Negative for headaches. Psychiatric/Behavioral: Negative for dysphoric mood, sleep disturbance and suicidal ideas. The patient is not nervous/anxious.[facility]03-[facility] History of Present illness Narrative* Gloria Oh MA - 01/24/2023 10:21 AM EDT Review of Systems Constitutional: Negative for activity change, chills, fever and unexpected weight change. Gastrointestinal: Negative for bowel retention or incontinence Genitourinary: Negative for difficulty urinating. Negative for bladder retention or incontinence Musculoskeletal: Positive for arthralgias, back pain, myalgias, neck pain and neck stiffness. Negative for gait problem and joint swelling. Neurological: Positive for weakness and numbness. Negative for headaches. Psychiatric/Behavioral: Negative for dysphoric mood, sleep disturbance and suicidal ideas. The patient is not nervous/anxious. * Elle Sanchez MD - 01/15/2023 10:58 AM EDT Images from the original note were not included. 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 Interval History: Overall pain and functional disability: improved New Complaints: low back pain She reports low back pain has worsened since a fall, radiates into the left lower limb, buttock andlateral thigh to the knee. Pain Description: Timing: constant, but worse with activity Character: Numb and Tingling Primary Location: LEFT shoulder Radiation: None Exacerbating factors: lifting Relieving factors: unable to pinpoint positions/factors that are mitigating Interferes with: physical activity and work The patient denies difficulty with bowel or bladder control, unintentional weight loss and fevers, chills, or night sweats. Medications Prescribed: Started or modified: none Discontinued: none Maintained at current dosages: Gabapentin 200mg BID (PCP) Topamax 100mg (PCP) Tizanidine 4mg Tylenol arthritis Tolerating Medication: yes Medications helping improve ADL's and Self-care: yes Procedures Performed: DATE PROCEDURE IMPROVEMENT 01/02/2023 LEFT suprascapular NB (Bupi) 70% (01/24/2023 ) Therapies Attended: none Studies Obtained: CT C-spine (relevant findings reported below) Recall: Insurance denied RFA Suprascap. N. States she is allergic to steroids, will develop hives for days SE with Lyrica Current Status: INTAKE PAIN ASSESSMENT 01/03/2023 01/12/2023 Are you having pain associated with your visit today? Yes, Provider notified Yes, Provider notified Pain Scales - - Pain Level 8 5 Pain Location Head - Description Dull Aching;Dull;Pressure Duration Amount of Time - - Duration Units Weeks Months Frequency Continuous Continuous Intervention/Comfort measure - - Comments - - Pain Assessment - - Analgesia: partially adequate Risk Assessment: VAHE-7: VAHE - 7 SCORES 03/29/2022 10/05/2022 11/14/2022 VAHE-7 Score 0 8 2 (0-4) minimal anxiety, (5-9) mild anxiety, (10-14) moderate anxiety, (15-21) severe anxiety PHQ-9: PHQ-9 03/29/2022 10/05/2022 11/14/2022 Score 2 16 2 (0-4) minimal depression, (5-9) mild depression, (10-14) moderate depression, (15-19) moderately severe depression, (20-27) severe depression Compliance: PDMP website checked and validated. All prescriptions have been APPROPRIATELY filled. No suspiciousactivity was identified. 01/24/2023 by Elle Sanchez MD Allergies: ALLERGIES Allergen Reactions Lidocaine Hives Steroids [Betametha* Hives Data Reviewed: Reviewed personally on today's date. Relevant Imaging: CT Cervical Spine 11/2022 MRI Left Shoulder 10/2021 ([facility]) Small GH effusion, small degenerative change posterior-inferior labrum (Per Dr. Greene) MRI of the right shoulder from an outside facility is essentially normal with someminor degenerative labral fraying and a joint effusion. MRI C-Spine 08/2021 ([facility]) Very mild degenerative changes MRI L-spine 08/2021 ([facility]) Very mild degenerative changes. Facet arthropathy at L1-2 through L5-S1. Recent labs: CMP: Glucose 93 08/12/2015 BUN 9 08/12/2015 Creatinine 0.59 08/12/2015 Sodium 136 08/12/2015 Potassium 3.9 08/12/2015 Chloride 97 08/12/2015 CO2 25 08/12/2015 Protein, Total 7.3 08/12/2015 Albumin 4.3 08/12/2015 Calcium 9.0 08/12/2015 Alkaline Phosphatase 62 08/12/2015 Bilirubin, Total 0.6 08/12/2015 AST 23 08/12/2015 ALT 26 08/12/2015 Pain Procedures: DATE PROCEDURE IMPROVEMENT 01/02/2023 LEFT suprascapular NB 70% (01/24/2023 ) 05/09/2022 LEFT suprascapular NB 75% Current Medications, Past Medical History, Past Surgical History, Family History, Social History and Review of Systems: On today's date, noted above, I have confirmed and edited as necessary, the PFSH and ROS obtained by others. Physical Exam: 01/24/23 1023 Pulse: 64 Resp: 16 SpO2: 98% Constitutional: morbidly obese HEENT: Normal Cephalic, Atraumatic, Non-icteric sclera Eyes: Conjunctiva clear. No discharge from eyes Cardiovascular: Appears well perfused Lymphatic: No visible regional lymphadenopathy Skin: No visible rashes or ecchymosis Psychiatric: Full affect, Alert, Pleasant LEFT Shoulder: Inspection: No edema, effusion, erythema, warmth No scapular winging No muscle atrophies Palpation: No tenderness to palpation at: Upper Trapezius, Middle Trapezius, Cervical paraspinals, Thoracic paraspinals No tenderness to palpation at: Bicipital groove, Acromioclavicular (AC) joint, Supraspinatus insertion Active Range of Motion: Normal Scapulothoracic rhythm. Full and non-painful range of motion for flexion, extension, abduction, internal and external rotation Passive Range of Motion: Full and non-painful range for flexion, extension, abduction, internal and external rotation Special Tests: Non-painful (negative) Zac-Alexandra Ji's Neuro-Lower: Neural Tension Signs: Negative slump in Bilateral lower limbs Sensation: intact to light touch in the L2-S2 Bilateral lower limb dermatomes Muscle Tone: Normal and symmetric throughout without clonus Strength: Iliopsoas (L2): 5 Left, 5 Right Quadriceps (L3) 5 Left, 5 Right Anterior Tibialis (L4): 5 Left, 5 Right Extensor Hallucis Longus (L5): 5 Left, 5 Right Gastrocnemius (S1): 5 Left, 5 Right Musculoskeletal-Lower: Inspection: Symmetric without atrophy Palpation: Lumbar Paraspinal Tenderness: Concordant on Bilateral side(s) Paraspinal Spasms: Mild PSIS Tenderness: None on Bilateral side(s) Greater Trochanter Tenderness: None on Bilateral side(s) Spine Range of Motion: Flexion: Decreased 25% Without end range pain Extension: Decreased 25% With end range pain Combination extension and rotation pain: Concordant Hip Range of Motion: Right Hip: Internal Rotation: Decreased 50%; Pain at end range: None External Rotation: Normal; Pain at end range: None Left Hip: Internal Rotation: Normal; Pain at end range: None External Rotation: Normal; Pain at end range: None Sacroiliac Maneuvers: Deferred Diagnoses: (M25.512, G89.29) Chronic left shoulder pain (primary encounter diagnosis) (M75.02) Adhesive capsulitis of left shoulder (M79.2) Neuropathic pain (M19.012) Primary osteoarthritis of left shoulder (M79.18) Myofascial pain (M47.816) Lumbar spondylosis Impression & Plan: 42 year old female, who presents with complaint(s) of LEFT shoulder pain andto discuss options. Steroid allergy. Lidocaine allergy (Bupivacaine OK). She had excellent relief with suprascapular NB, 70% pain relief. Unfortunately the patient can not tolerate steroids. Insurance denied RFA, but she has new insurance. She remains active in her home exercises, which is keeping her symptoms stable at this time. Tori Gray would benefit from the following to decrease pain, improve function and/or work participation, and improve quality of life: -Interventional Procedure: Medial branch blocks left L4-5 and L5-S1 x2 under fluoroscopic guidance,RFA if positive Radiofrequency Ablation (RFA) left Suprascapular nerve The risks, benefits, alternative treatment options and prognosis of the procedure were discussed and all of the patient's questions/concerns were addressed to the patient s satisfaction. Unless explicitly instructed otherwise, patient was advised that they will need a class b driver for after the procedure and that if no class b driver is available and on site at the time of the procedure, the procedure will be cancelled. For any anticoagulants, the patient was advised on whether to continue or hold for this procedure. The patient expressed understanding and gave verbal consent to proceed. Medications: Refill: Continue Gabapentin as directed (PCP manages) Functional Quaker: Continue PT and TENs unit for pain relief Additional Studies: Referrals: Additional: Consider SPRINT PNS - discussed today; consider RFA lumbar spine Patient is happy and agreeable with this plan. All questions were answered and patient verbalized understanding. Follow-up: 4 months Attribution: In addition to reviewing the information noted above, some elements copied from my most recent clinical note(s), including the physical exam (completed in entirety today), and the impression and plan sections, have been updated where appropriate. All reflect current medical decision making from today's date. Elle Sanchez MD, MBA Pain Management [facility] documented in this encounterFairfield [facility] Center03-21-2023 Instructions* Patient Instructions* Jenni Ledesma APRN.CNP - 01/22/2023 11:47 AM EDT Botox Home Instruction: Instruction after botox injection: - If you have any pain or swelling use ice, 20 min on and 20 min off. Do not rub or massage the area for 48 hrs. - If you have any neck stiffness, you may use heat and do stretching exercises. - This should improve over the next 5 days. documented in this encounterFairfield Medical Center03-21-2023 History of Present illness Narrative* Karen Bansal APRN.CNP - 01/22/2023 11:22 AM EDT New Onabotulinum Toxin A (BotoxTM) for Migraine Indication: Chronic Intractable Migraine Treatment #: 1 Referral Expiration: 01/30/2023 Number of moderate-severe migraine days/month: 30 (daily) Number of mild migraine days/month: 0 Number of headache free days/month: 0 (0 headache-free hours) Migraine severity: 10/10 The patient has been assessed for disorders which could contribute to breathing or swallowing difficulty, and there is no contraindication with PREEMPT Botox. There is no documented allergic reaction/hypersensitivity to any botulinum toxin and there is no active infection at proposed injection site. 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 No correct side/site applicable for marking and visibility. No medications required for procedure. No fire risk assessment and interventions applicable. No implant(s) inserted. SIGN OUT No specimen collected. No instruments, equipment or retained foreign bodies applicable. Post-procedure follow-up management communicated and Plan of Care Visit completed when applicable Written Consent Obtained: Written LOT #: [id number] Expiration Date: Month: Year: 2024 Second vial: LOT #: [id number] Expiration Date: Month: 3 Year: 2024 Injection Sites Left (Units) Left (Sites) Right (Units) Right (Sites) TOTAL (Units) Professor In Family Studies 5 1 5 1 10 Procerus Units: 5 Sites: 1 5 Frontalis 10 2 10 2 20 Temporalis 20 4 20 4 40 Occipitalis 15 3 15 3 30 Cervical PSP 10 2 10 2 20 Trapezius 15 3 15 3 30 Total Units used: 155 Total Units wasted: 45 Prior Therapies Lyrica Excedrin Tylenol Naproxen Amiovig Topamax, Amitriptyline Propranolol Topiramate/ Trokendi XL Jenni Ledesma APRN.CNP Attestation: I have reviewed the clinical details obtained and documented by JEANNIE Ledesma and I have participated in the santos components. I discussed the case and the management plans with JEANNIE Ledesma , and I fully agree with the recommendations as outlined above. Edits to the note are indicated by italics and the note reflects my input. My impression and recommendations were discussed at length with the patient (and family members, ifpresent). The patient and family (if present) voiced understanding to my recommendations. All questions were answered. The patient was provided with a detailed after visit summary highlighting my impression and recommendations. Karen Bansal APRN.CNP documented in this encounterFairfield Medical Center03-16-2023 History of Past illness Narrative* Problem Noted Date Diagnosed Date Resolved Date Paresthesia 01/17/2023 12/09/2023 Closed head injury 11/27/2022 Chest pain 09/04/2022 09/04/2022 Contusion of knee 09/04/2022 09/04/2022 Fall 09/04/2022 09/04/2022 Headache 09/04/2022 09/04/2022 History of type 2 diabetes mellitus 09/04/2022 09/04/2022 Muscle pain 09/04/2022 09/04/2022 Pain of left scapula 09/04/2022 022 Shortness of breath 09/04/2022 09/04/20 Type 2 diabetes mellitus with hyperglycemia 09/04/2022 09/04/2022 Upper respiratory tract infection 09/04/2022 09/04/2022 Viral infection 09/04/2022 09/04/2022 Low back pain, unspecified 04/17/2022 1 11/04/2021 Segmental and somatic dysfunction 04/17/2022 09/04/2022 Shoulder pain 01/16/2022 12/09/2023 Nausea, vomiting, and diarrhea 11/22/2021 09/04/2022 Numbness of upper extremity 10/10/2021 09/04/2022 Obesity, Class III, BMI >= 40 11/26/2019 09/04/2022 Microalbuminuria 09/30/2018 09/04/2022 Strain of lumbar region 07/02/201711/2021 Routine general medical exam ination at a health care facility 12/06/2012 02/22/2014 Routine general medical exam ination at a health care facility 01/23/2010 12/06/2012 Overview: 01/23/2010, from Dr. White Routine gynecological examination 01/23/2010 02/22/2014 SACROILIITIS 05/06/2009 01/23/2010 KERATOSIS PILARIS////SKIN ANOMALY NEC 03/26/2007 01/23/2010 FOLLICULITIS///HAIR DISEASES NEC 03/26/2007 01/23/2010 Lichenification and lichen simplex chronicus 7 01/23/2010 DERMATOFIBROMA///BENIGN KAILEY SKIN ARM 03/26/2007 01/23/2010 Contact dermatitis and other eczema, due to unspecified cause 03/26/2007 01/23/2010 Transient hypertension of pr egnancy, antepartum 06/19/2006 07/02/2006 Supervision of normal first 11/09/2005 07/02/2006 documented as of this encounter (statuses as of 12/10/2023) [facility] of Past illness Narrative* Problem Noted Date Diagnosed Date Resolved Date Paresthesia 01/17/2023 12/09/2023 Closed head injury 11/27/2022 Chest pain 09/04/2022 09/04/2022 Contusion of knee 09/04/2022 09/04/2022 Fall 09/04/2022 09/04/2022 Headache 09/04/2022 09/04/2022 History of type 2 diabetes mellitus 09/04/2022 09/04/2022 Muscle pain 09/04/2022 09/04/2022 Pain of left scapula 09/04/2022 022 Shortness of breath 09/04/2022 09/04/20 Type 2 diabetes mellitus with hyperglycemia 09/04/2022 09/04/2022 Upper respiratory tract infection 09/04/2022 09/04/2022 Viral infection 09/04/2022 09/04/2022 Low back pain, unspecified 04/17/2022 1 11/04/2021 Segmental and somatic dysfunction 04/17/2022 09/04/2022 Shoulder pain 01/16/2022 12/09/2023 Nausea, vomiting, and diarrhea 11/22/2021 09/04/2022 Numbness of upper extremity 10/10/2021 09/04/2022 Obesity, Class III, BMI >= 40 11/26/2019 09/04/2022 Microalbuminuria 09/30/2018 09/04/2022 Strain of lumbar region 07/02/201711/2021 Routine general medical exam ination at a health care facility 12/06/2012 02/22/2014 Routine general medical exam ination at a health care facility 01/23/2010 12/06/2012 Overview: 01/23/2010, from Dr. White Routine gynecological examination 01/23/2010 02/22/2014 SACROILIITIS 05/06/2009 01/23/2010 KERATOSIS PILARIS////SKIN ANOMALY NEC 03/26/2007 01/23/2010 FOLLICULITIS///HAIR DISEASES NEC 03/26/2007 01/23/2010 Lichenification and lichen simplex chronicus 7 01/23/2010 DERMATOFIBROMA///BENIGN KAILEY SKIN ARM 03/26/2007 01/23/2010 Contact dermatitis and other eczema, due to unspecified cause 03/26/2007 01/23/2010 Transient hypertension of pr egnancy, antepartum 06/19/2006 07/02/2006 Supervision of normal first 11/09/2005 07/02/2006 documented as of this encounter (statuses as of 12/10/2023) [facility] of Past illness Narrative* Problem Noted Date Diagnosed Date Resolved Date Paresthesia 01/17/2023 12/09/2023 Closed head injury 11/27/2022 Chest pain 09/04/2022 09/04/2022 Contusion of knee 09/04/2022 09/04/2022 Fall 09/04/2022 09/04/2022 Headache 09/04/2022 09/04/2022 History of type 2 diabetes mellitus 09/04/2022 09/04/2022 Muscle pain 09/04/2022 09/04/2022 Pain of left scapula 09/04/2022 022 Shortness of breath 09/04/2022 09/04/20 Type 2 diabetes mellitus with hyperglycemia 09/04/2022 09/04/2022 Upper respiratory tract infection 09/04/2022 09/04/2022 Viral infection 09/04/2022 09/04/2022 Low back pain, unspecified 04/17/2022 1 11/04/2021 Segmental and somatic dysfunction 04/17/2022 09/04/2022 Shoulder pain 01/16/2022 12/09/2023 Nausea, vomiting, and diarrhea 11/22/2021 09/04/2022 Numbness of upper extremity 10/10/2021 09/04/2022 Obesity, Class III, BMI >= 40 11/26/2019 09/04/2022 Microalbuminuria 09/30/2018 09/04/2022 Strain of lumbar region 07/02/2017 11/0 11/2021 Routine general medical exam ination at a health care facility 12/06/2012 02/22/2014 Routine general medical exam ination at a health care facility 01/23/2010 12/06/2012 Overview: 01/23/2010, from Dr. White Routine gynecological examination 01/23/2010 02/22/2014 SACROILIITIS 05/06/2009 01/23/2010 KERATOSIS PILARIS////SKIN ANOMALY NEC 03/26/2007 01/23/2010 FOLLICULITIS///HAIR DISEASES NEC 03/26/2007 01/23/2010 Lichenification and lichen simplex chronicus 7 01/23/2010 DERMATOFIBROMA///BENIGN KAILEY SKIN ARM 03/26/2007 01/23/2010 Contact dermatitis and other eczema, due to unspecified cause 03/26/2007 01/23/2010 Transient hypertension of pr egnancy, antepartum 06/19/2006 07/02/2006 Supervision of normal first 11/09/2005 07/02/2006 documented as of this encounter (statuses as of 12/26/2023) [facility] of Past illness Narrative* Problem Noted Date Diagnosed Date Resolved Date Paresthesia 01/17/2023 12/09/2023 Closed head injury 11/27/2022 Chest pain 09/04/2022 09/04/2022 Contusion of knee 09/04/2022 09/04/2022 Fall 09/04/2022 09/04/2022 Headache 09/04/2022 09/04/2022 History of type 2 diabetes mellitus 09/04/2022 09/04/2022 Muscle pain 09/04/2022 09/04/2022 Pain of left scapula 09/04/2022 022 Shortness of breath 09/04/2022 09/04/20 Type 2 diabetes mellitus with hyperglycemia 09/04/2022 09/04/2022 Upper respiratory tract infection 09/04/2022 09/04/2022 Viral infection 09/04/2022 09/04/2022 Low back pain, unspecified 04/17/2022 1 11/04/2021 Segmental and somatic dysfunction 04/17/2022 09/04/2022 Shoulder pain 01/16/2022 12/09/2023 Nausea, vomiting, and diarrhea 11/22/2021 09/04/2022 Numbness of upper extremity 10/10/2021 09/04/2022 Obesity, Class III, BMI >= 40 11/26/2019 09/04/2022 Microalbuminuria 09/30/2018 09/04/2022 Strain of lumbar region 07/02/2017 11/11/2021 Routine general medical exam ination at a health care facility 12/06/2012 02/22/2014 Routine general medical exam ination at a health care facility 01/23/2010 12/06/2012 Overview: 01/23/2010, from Dr. White Routine gynecological examination 01/23/2010 02/22/2014 SACROILIITIS 05/06/2009 01/23/2010 KERATOSIS PILARIS////SKIN ANOMALY NEC 03/26/2007 01/23/2010 FOLLICULITIS///HAIR DISEASES NEC 03/26/2007 01/23/2010 Lichenification and lichen simplex chronicus 7 01/23/2010 DERMATOFIBROMA///BENIGN KAILEY SKIN ARM 03/26/2007 01/23/2010 Contact dermatitis and other eczema, due to unspecified cause 03/26/2007 01/23/2010 Transient hypertension of pr egnancy, antepartum 06/19/2006 07/02/2006 Supervision of normal first 11/09/2005 07/02/2006 documented as of this encounter (statuses as of 01/02/2024) [facility] Past illness Narrative* Problem Noted Date Diagnosed Date Resolved Date Paresthesia 01/17/2023 12/09/2023 Closed head injury 11/27/2022 Chest pain 09/04/2022 09/04/2022 Contusion of knee 09/04/2022 09/04/2022 Fall 09/04/2022 09/04/2022 Headache 09/04/2022 09/04/2022 History of type 2 diabetes mellitus 09/04/2022 09/04/2022 Muscle pain 09/04/2022 09/04/2022 Pain of left scapula 09/04/2022 Shortness of breath 09/04/2022 09/04/20 Type 2 diabetes mellitus with hyperglycemia 09/04/2022 09/04/2022 Upper respiratory tract infection 09/04/2022 09/04/2022 Viral infection 09/04/2022 09/04/2022 Low back pain, unspecified 04/17/2022 1 11/04/2021 Segmental and somatic dysfunction 04/17/2022 09/04/2022 Shoulder pain 01/16/2022 12/09/2023 Nausea, vomiting, and diarrhea 11/22/2021 09/04/2022 Numbness of upper extremity 10/10/2021 09/04/2022 Obesity, Class III, BMI >= 40 11/26/2019 09/04/2022 Microalbuminuria 09/30/2018 09/04/2022 Strain of lumbar region 07/02/2017 11/11/2021 Routine general medical exam ination at a health care facility 12/06/2012 02/22/2014 Routine general medical exam ination at a health care facility 01/23/2010 12/06/2012 Overview: 01/23/2010, from Dr. White Routine gynecological examination 01/23/2010 02/22/2014 SACROILIITIS 05/06/2009 01/23/2010 KERATOSIS PILARIS////SKIN ANOMALY NEC 03/26/2007 01/23/2010 FOLLICULITIS///HAIR DISEASES NEC 03/26/2007 01/23/2010 Lichenification and lichen simplex chronicus 7 01/23/2010 DERMATOFIBROMA///BENIGN KAILEY SKIN ARM 03/26/2007 01/23/2010 Contact dermatitis and other eczema, due to unspecified cause 03/26/2007 01/23/2010 Transient hypertension of pr egnancy, antepartum 06/19/2006 07/02/2006 Supervision of normal first 11/09/2005 07/02/2006 documented as of this encounter (statuses as of 01/15/2024) [facility] Past illness Narrative* Problem Noted Date Diagnosed Date Resolved Date Paresthesia 01/17/2023 12/09/2023 Closed head injury 11/27/2022 Chest pain 09/04/2022 09/04/2022 Contusion of knee 09/04/2022 09/04/2022 Fall 09/04/2022 09/04/2022 Headache 09/04/2022 09/04/2022 History of type 2 diabetes mellitus 09/04/2022 09/04/2022 Muscle pain 09/04/2022 09/04/2022 Pain of left scapula 09/04/2022 022 Shortness of breath 09/04/2022 09/04/20 Type 2 diabetes mellitus with hyperglycemia 09/04/2022 09/04/2022 Upper respiratory tract infection 09/04/2022 09/04/2022 Viral infection 09/04/2022 09/04/2022 Low back pain, unspecified 04/17/2022 1 11/04/2021 Segmental and somatic dysfunction 04/17/2022 09/04/2022 Shoulder pain 01/16/2022 12/09/2023 Nausea, vomiting, and diarrhea 11/22/2021 09/04/2022 Numbness of upper extremity 10/10/2021 09/04/2022 Obesity, Class III, BMI >= 40 11/26/2019 09/04/2022 Microalbuminuria 09/30/2018 09/04/2022 Strain of lumbar region 07/02/201711/2021 Routine general medical exam ination at a health care facility 12/06/2012 02/22/2014 Routine general medical exam ination at a health care facility 01/23/2010 12/06/2012 Overview: 01/23/2010, from Dr. White Routine gynecological examination 01/23/2010 02/22/2014 SACROILIITIS 05/06/2009 01/23/2010 KERATOSIS PILARIS////SKIN ANOMALY NEC 03/26/2007 01/23/2010 FOLLICULITIS///HAIR DISEASES NEC 03/26/2007 01/23/2010 Lichenification and lichen simplex chronicus 7 01/23/2010 DERMATOFIBROMA///BENIGN KAILEY SKIN ARM 03/26/2007 01/23/2010 Contact dermatitis and other eczema, due to unspecified cause 03/26/2007 01/23/2010 Transient hypertension of pr egnancy, antepartum 06/19/2006 07/02/2006 Supervision of normal first 11/09/2005 07/02/2006 documented as of this encounter (statuses as of 01/23/2024) [facility] of Present illness Narrative* Ivette Grimes MD - 01/17/2023 11:22 AM EDT Patient presents with: Follow Up HPI: Patient presents today for office visit for follow up. Still having intermittent dizziness and brain fog. Started back at work last week. Was having trouble getting through shift. Complaints of nausea and anxiety. Worried that she might pass out again. Thinks she may have PTSD. Has good days and bad days. She still has occasional brain fog. She would to continue to work if able. Still with headache and neck pain. Waiting on MRI's. No new focal neuro issues. 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 She feels like the back of her neck feels off. No cough or congestion. No sore throat or fever. Had a cold last week. Now better. MRI still not approved. She spoke with workers [employer] who states a C9 needs completed specifically indicating head and neck trauma. Will try to complete. MEDICATIONS: Current Outpatient Medications Medication Sig ondansetron (ZOFRAN) 4 mg tablet Take 1 tablet by mouth every 8 hours as needed for nausea/vomiting. tiZANidine (ZANAFLEX) 4 mg tablet Take 1 tablet by mouth every 8 hours as needed. topiramate (TOPAMAX) 100 mg tablet Take 1 tablet by mouth twice daily. meclizine (ANTIVERT) 25 mg tab Take 25 mg by mouth once daily. Takes two tabs in am rizatriptan (MAXALT) 10 mg tablet Take 1 tablet by mouth as needed (at onset of headache. May repeat after 2 hours.). Do not exceed 30 mg per day. lisinopril (ZESTRIL, PRINIVIL) 10 mg tablet Take 1 tablet by mouth once daily. gabapentin (NEURONTIN) 300 mg capsule Take 1 tablet in AM, afternoon and bedtime. If after 2 days symptoms persist, increase to 1 tab in AM, afternoon and 2 tabs at bedtime. FLUoxetine (PROZAC) 20 mg capsule Take 1 capsule by mouth once daily. BIPAP dulaglutide (TRULICITY) 0.75 mg/0.5 mL pen injector Inject 0.75 mg subcutaneously one time a week. Inject dose once per week. Discard Pen After albuterol HFA (VENTOLIN HFA) 90 mcg/actuation inhaler Inhale 2 Puffs as instructed every 4 hours asneeded for wheezing/shortness of breath. fexofenadine (ALMA ALLERGY) 180 mg tablet Take 1 tablet by mouth once daily. omeprazole (PRILOSEC) 20 mg capsule Take 1 capsule by mouth daily before breakfast. 1/2 hr before meal. levonorgestrel (KYLEENA) 17.5 mcg/24 hrs (5 yrs) 19.5 mg IUD 1 Each by INTRAUTERINE route as directed. Ipratropium [place] (ATROVENT) 0.03 % nasal spray Use 2 Sprays in the nose every 12 hours. Herrick-3 Fatty Acids (FISH OIL) 500 mg cap Take 1 capsule by mouth once daily. blood sugar diagnostic (BLOOD GLUCOSE TEST) test strip Test blood sugar(s) 1 times daily. Dx: Type 2 DM - Controlled E11.9 Insulin: Yes Lancets lancets Test blood sugar(s) 1 times daily. Dx: Type 2 DM - Controlled E11.9 Insulin: No Mbtepous-Yc-Ubm-Fe-FA tab Take 1 tablet by mouth once daily. metroNIDAZOLE (METROGEL) 0.75 % Topical Gel Apply to affected area twice daily. (Patient not taking: Reported on 01/17/2023) No current facility-administered medications for this visit. ALLERGIES: ALLERGIES Allergen Reactions Lidocaine Hives Steroids [Betametha* Hives PAST MEDICAL HISTORY Diagnosis Date Acute cholecystitis Cholecystitis Anxiety 06/07/2014 Chronic back pain Kidney stones LETITIA treated with BiPAP Type 2 diabetes mellitus (HCC) PAST SURGICAL HISTORY Procedure Laterality Date DELIVERY ONLY 2006 , low cervical INSERT INTRAUTERINE DEVICE 10/19/08 mirena LAPAROSCOPY SURG CHOLECYSTECTOMY 2006 Cholecystectomy, lap (Rowena Monet) PAST SURGICAL HISTORY OF 2019 stent into kidney REMOVE IUD 07/13/2010 FAMILY HISTORY Problem Relation Age of Onset Alcohol/Drug Mother Heart Father [place] Cancer Father PANCREATIC CANCER Diabetes Father Coronary Artery Disease Father Anxiety disorder Sister Depression Sister Depression Brother Cancer Maternal Grandmother LUNG CANCER Diabetes Maternal Grandfather Heart Paternal Grandmother TRIPLE BYPASS SURGERY Social History Tobacco Use Smoking status: Never Smokeless tobacco: Never Vaping Use Vaping Use: Never used Substance Use Topics Alcohol use: No Drug use: No Reviewed current medications, allergies, past medical history, surgical history, family history andsocial history today. REVIEW OF SYSTEMS All other reviewed and negative other than HPI. VITALS: BP 148/84 Pulse 70 Ht 170.2 cm (5' 7) Wt 128.8 kg (284 lb) LMP 11/22/2022 (Approximate) SpO2 98% BMI 44.48 kg/m Last 4 Encounter Wt Readings: Date: Wt: 01/04/2023 128.4 kg (283 lb) 12/26/2022 128.4 kg (283 lb) 12/14/2022 125.6 kg (277 lb) 12/07/2022 126 kg (277 lb 12.8 oz) PHYSICAL EXAMINATION: General appearance: Well appearing, alert, in no acute distress, well-hydrated, well nourished. Skin: Skin color, texture, turgor normal, no suspicious rashes or lesions Head: Normocephalic, no masses, lesions, tenderness or abnormalities Eyes: Anicteric sclera. Pupils are equally round and reactive to light. Extraocular movements are intact. Ears: External ears normal, canals clear Nose/Sinuses: Nares normal, septum midline, mucosa normal, no drainage or sinus tenderness Oropharynx: Lips, mucosa, and tongue normal, teeth and gums normal, oropharynx normal Neck: supple. No tenderness over the cervical spine. Slightly uncomfortable over left posterior neck-? Muscular. Doubt mass but will follow. Red flags for re- assessment reviewed with patient in detail. Lungs: Lungs clear to auscultation. No wheezing, rhonchi, rales Heart: RRR without murmur, gallop, or rubs. No ectopy Abdomen: Normal abdominal exam, Abdomen soft, non-tender. Bowel sounds normal. No masses, organomegaly ASSESSMENT/PLAN: 1. Post concussive syndrome - ICD9: 310.2, ICD10: F07.81 (primary diagnosis) - see if we can get mris approved. We really need to consider. See letter regarding new restrictions. Has follow up appt already set up on the . 2. Headache, unspecified headache type - ICD9: 784.0, ICD10: R51.9 3. Injury of neck, subsequent encounter - ICD9: V58.89, 959.09, ICD10: S19.9XXD Ivette Grimes MD documented in this encounterFair[facility]03-[facility]23 NoteHNO ID: [id number] Author: Elle Sanchez MD Service: ? 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 Interval History: Overall pain and functional disability: improved New Complaints: low back pain She reports low back pain has worsened since a fall, radiates into the left lower limb, buttock and lateral thigh to the knee. Pain Description: Timing: constant, but worse with activity Character: Numb and Tingling Primary Location: LEFT shoulder Radiation: None Exacerbating factors: lifting Relieving factors: unable to pinpoint positions/factors that are mitigating Interferes with: physical activity and work The patient denies difficulty with bowel or bladder control, unintentional weight loss and fevers, chills, or night sweats. Medications Prescribed: Started or modified: none Discontinued: none Maintained at current dosages: Gabapentin 200mg BID (PCP) Topamax 100mg (PCP) Tizanidine 4mg Tylenol arthritis Tolerating Medication: yes Medications helping improve ADL's and Self-care: yes Procedures Performed: DATE PROCEDURE IMPROVEMENT 01/02/2023 LEFT suprascapular NB (Bupi) 70% (01/24/2023 ) Therapies Attended: none Studies Obtained: CT C-spine (relevant findings reported below) Recall: Insurance denied RFA Suprascap. N. States she is allergic to steroids, will develop hives for days SE with Lyrica Current Status: INTAKE PAIN ASSESSMENT 01/03/2023 01/12/2023 Are you having pain associated with your visit today? Yes, Provider notified Yes, Provider notified Pain Scales - - Pain Level 8 5 Pain Location Head - Description Dull Aching;Dull;Pressure Duration Amount of Time - - Duration Units Weeks Months Frequency Continuous Continuous Intervention/Comfort measure - - Comments - - Pain Assessment - - Analgesia: partially adequate Risk Assessment: VAHE-7: VAHE - 7 SCORES 03/29/2022 10/05/2022 11/14/2022 VAHE-7 Score 0 8 2 (0-4) minimal anxiety, (5-9) mild anxiety, (10-14) moderate anxiety, (15-21) severe anxiety PHQ-9: PHQ-9 03/29/2022 10/05/2022 11/14/2022 Score 2 16 2 (0-4) minimal depression, (5-9) mild depression, (10-14) moderate depression, (15-19) moderately severe depression, (20-27) severe depression Compliance: PDMP website checked and validated. All prescriptions have been APPROPRIATELY filled. No suspicious activity was identified. 01/24/2023 by Elle Sanchez MD Allergies: ALLERGIES Allergen Reactions Lidocaine Hives Steroids [Betametha* Hives Data Reviewed: Reviewed personally on today's date. Relevant Imaging: CT Cervical Spine 11/2022 MRI Left Shoulder 10/2021 ([facility]) Small GH effusion, small degenerative change posterior-inferior labrum (Per Dr. Greene) MRI of the right shoulder from an outside facility is essentially normal with some minor degenerative labral fraying and a joint effusion. MRI C-Spine 08/2021 ([facility]) Very mild degenerative changes MRI L-spine 08/2021 ([facility]) Very mild degenerative changes. Facet arthropathy at L1-2 through L5-S1. Recent labs: CMP: Glucose 93 08/12/2015 BUN 9 08/12/2015 Creatinine 0.59 08/12/2015 Sodium 136 08/12/2015 Potassium 3.9 08/12/2015 Chloride 97 08/12/2015 CO2 25 08/12/2015 Protein, Total 7.3 08/12/2015 Albumin 4.3 08/12/2015 Calcium 9.0 08/12/2015 Alkaline Phosphatase 62 08/12/2015 Bilirubin, Total 0.6 08/12/2015 AST 23 08/12/2015 ALT 26 08/12/2015 Pain Procedures: DATE PROCEDURE IMPROVEMENT 01/02/2023 LEFT suprascapular NB 70% (01/24/2023 ) 05/09/2022 LEFT suprascapular NB 75% Current Medications, Past Medical History, Past Surgical History, Family History, Social History and Review of Systems: On today's date, noted above, I have confirmed and edited as necessary, the PFSH and ROS obtained by others. Physical Exam: 01/24/23 1023 Pulse: 64 Resp: 16 SpO2: 98% Constitutional: morbidly obese HEENT: Normal Cephalic, Atraumatic, Non-icteric sclera Eyes: Conjunctiva clear. No discharge from eyes Cardiovascular: Appears well perfused Lymphatic: No visible regional lymphadenopathy Skin: No visible rashes or ecchymosis Psychiatric: Full affect, Alert, Pleasant LEFT Shoulder: Inspection: No edema, effusion, erythema, warmth No scapular winging No muscle atrophies Palpation: No tenderness to palpation at: Upper Trapezius, Middle Trapezius, Cervical paraspinals, Thoracic paraspinals No tenderness to palpation at: Bicipital groove, Acromioclavicular (AC) joint, Supraspinatus insertion Active Range of Motion: Normal Scapulothoracic (more content not included)...[facility]03-10-2023 Miscellaneous Notes* Telephone Encounter - Nirmala Storey LPN - 01/11/2023 4:42 PM EST Request is closed. An override is in effect until 01/09/24. * Telephone Encounter - Mirna Santos Ma - 01/08/2023 4:55 PM EST PA was submitted through rx benefits Mirna Santos Ma documented in this encounterFair[facility]03-09-2023 Miscellaneous Notes* Telephone Encounter - Nirmala Storey LPN - 01/10/2023 2:16 PM EST Patient has been identified by name and date of : Yes Requested Prescriptions Pending Prescriptions Disp Refills tiZANidine (ZANAFLEX) 4 mg tablet 20 tablet 0 Sig: Take 1 tablet by mouth every 8 hours as needed. RX INSTRUCTIONS: Patient aware RX will be sent to pharmacy. No need to notify patient. Nirmala Storey LPN documented in this encounterFairfield [facility] Center03-03-2023 History of Present illness Narrative* Ivette Grimes MD - 01/04/2023 11:27 AM EST Patient presents with: Follow Up: 1 week follow up HPI: Patient presents today for office visit for follow up. Feels getting somewhat better. Still with some headaches, dizziness, and nausea. Thought memory wasbetter but then past few days have been not so good. We are waiting on comp to approve her MRI. Apparently there was confusion because the original ER c9 reported it as wrist contusion. The main issue she had was her head injury and now her resultant post concussive syndrome. They are currently fixing her account and will do paperwork to get MRI cover. We were not notified originally that the visits were to be billed under comp. She is better but not perfect. 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 I will reevalute her next week and see how she does. MEDICATIONS: Current Outpatient Medications Medication Sig meclizine (ANTIVERT) 25 mg tab Take 25 mg by mouth once daily. Takes two tabs in am tiZANidine (ZANAFLEX) 4 mg tablet Take 1 tablet by mouth every 8 hours as needed. rizatriptan (MAXALT) 10 mg tablet Take 1 tablet by mouth as needed (at onset of headache. May repeat after 2 hours.). Do not exceed 30 mg per day. lisinopril (ZESTRIL, PRINIVIL) 10 mg tablet Take 1 tablet by mouth once daily. ondansetron (ZOFRAN) 4 mg tablet Take 1 tablet by mouth every 8 hours as needed for nausea/vomiting. gabapentin (NEURONTIN) 300 mg capsule Take 1 tablet in AM, afternoon and bedtime. If after 2 days symptoms persist, increase to 1 tab in AM, afternoon and 2 tabs at bedtime. FLUoxetine (PROZAC) 20 mg capsule Take 1 capsule by mouth once daily. BIPAP topiramate (TOPAMAX) 100 mg tablet Take 1 tablet by mouth twice daily. dulaglutide (TRULICITY) 0.75 mg/0.5 mL pen injector Inject 0.75 mg subcutaneously one time a week. Inject dose once per week. Discard Pen After albuterol HFA (VENTOLIN HFA) 90 mcg/actuation inhaler Inhale 2 Puffs as instructed every 4 hours asneeded for wheezing/shortness of breath. fexofenadine (ALMA ALLERGY) 180 mg tablet Take 1 tablet by mouth once daily. omeprazole (PRILOSEC) 20 mg capsule Take 1 capsule by mouth daily before breakfast. 1/2 hr before meal. levonorgestrel (KYLEENA) 17.5 mcg/24 hrs (5 yrs) 19.5 mg IUD 1 Each by INTRAUTERINE route as directed. Ipratropium [place] (ATROVENT) 0.03 % nasal spray Use 2 Sprays in the nose every 12 hours. metroNIDAZOLE (METROGEL) 0.75 % Topical Gel Apply to affected area twice daily. Herrick-3 Fatty Acids (FISH OIL) 500 mg cap Take 1 capsule by mouth once daily. blood sugar diagnostic (BLOOD GLUCOSE TEST) test strip Test blood sugar(s) 1 times daily. Dx: Type 2 DM - Controlled E11.9 Insulin: Yes Lancets lancets Test blood sugar(s) 1 times daily. Dx: Type 2 DM - Controlled E11.9 Insulin: No Ysxwecyl-Kc-Mhj-Fe-FA tab Take 1 tablet by mouth once daily. No current facility-administered medications for this visit. ALLERGIES: ALLERGIES Allergen Reactions Lidocaine Hives Steroids [Betametha* Hives PAST MEDICAL HISTORY Diagnosis Date Acute cholecystitis Cholecystitis Anxiety 06/07/2014 Chronic back pain Kidney stones LETITIA treated with BiPAP Type 2 diabetes mellitus (HCC) PAST SURGICAL HISTORY Procedure Laterality Date DELIVERY ONLY 2006 , low cervical INSERT INTRAUTERINE DEVICE 10/19/08 mirena LAPAROSCOPY SURG CHOLECYSTECTOMY 2006 Cholecystectomy, lap (Rowena Monet) PAST SURGICAL HISTORY OF 2019 stent into kidney REMOVE IUD 07/13/2010 FAMILY HISTORY Problem Relation Age of Onset Alcohol/Drug Mother Heart Father [place] Cancer Father PANCREATIC CANCER Diabetes Father Coronary Artery Disease Father Anxiety disorder Sister Depression Sister Depression Brother Cancer Maternal Grandmother LUNG CANCER Diabetes Maternal Grandfather Heart Paternal Grandmother TRIPLE BYPASS SURGERY Social History Tobacco Use Smoking status: Never Smokeless tobacco: Never Vaping Use Vaping Use: Never used Substance Use Topics Alcohol use: No Drug use: No Reviewed current medications, allergies, past medical history, surgical history, family history andsocial history today. REVIEW OF SYSTEMS All other reviewed and negative other than HPI. VITALS: BP 132/78 Pulse 85 Wt 128.4 kg (283 lb) LMP 11/22/2022 (Approximate) SpO2 97% BMI 44.32 kg/m Last 4 Encounter Wt Readings: Date: Wt: 12/26/2022 128.4 kg (283 lb) 12/14/2022 125.6 kg (277 lb) 12/07/2022 126 kg (277 lb 12.8 oz) 12/07/2022 125.6 kg (277 lb) PHYSICAL EXAMINATION: General appearance: Well appearing, [...] joint swelling, deformity, or tenderness ASSESSMENT/PLAN: 1. Post concussive syndrome - ICD9: 310.2, ICD10: F07.81 (primary diagnosis) - return to one job next week with not more than 40 hours a week. Re evaluate next week. Call if any issues. Red flags for re-assessment reviewed with patient in detail. 2. Headache, unspecified headache type - ICD9: 784.0, ICD10: R51.9 Ivette Grimes MD documented in this encounterFair[facility] Center02-28-2023 Miscellaneous Notes* Telephone Encounter - Juliana Murphy Ma - 01/01/2023 3:02 PM EST Patient never checked in for her appointments as workers comp. Sent visits to [facility] to have C9 created and faxed to Dr Grimes * Telephone Encounter - Ivette Grimes MD - 01/01/2023 2:23 PM EST To my knowledge I have not completed any workman's comp paperwork. Was that fdone in the ER? * Telephone Encounter - Hailey Leone LPN - 01/01/2023 2:16 PM EST Worker's Comp is putting a hold on MRI, C-9 is only showing a wrist contusion, it is not showing head injury or neck sprain. Patient went to the ER because she hit her head. Patient is asking Dr. Grimes to review C-9 and resubmit. Hailey Leone LPN documented in this encounterFairfield Medical Center02-23-2023 Miscellaneous Notes* Telephone Encounter - Anni Cueto - 12/27/2022 2:22 PM EST Received the [facility] C9 form. The patient was seen on 12/07/2022. The appointment was attached to the patient's insurance not a WC claim. Spoke with the patient and was given the information. PCP Dr. Grimes is the physican of records per the patient. Claim# [id number] Date of injury: 11/24/2022 Nolberto Walden RN [phone] Case management: Cristina mars# [phone] Left Cristina a message to fax information and to call the office. Requested WC report and DX allowed * Telephone Encounter - Jovana Blackwell MA - 12/26/2022 2:12 PM EST Spoke to [facility]. Will send OV note to complete authorization of MRI order/payment of visit to [phone]. [employer] is sending c9 form for provider to complete. Gave form to Anni Sauceda per Dr. Mejia's instructions. Jovana Blackwell MA * Telephone Encounter - Jovana Blackwell MA - 12/25/2022 10:18 AM EST TC to [facility]. Unable to reach. Left detailed message on VM to return call to office & ask for atriage nurse. Please transfer to neurology back line at ext. [phone]. Jovana Blackwell MA * Telephone Encounter - Marilynn Frank LPN - 12/24/2022 3:28 PM EST Patient calling said her MRI's need to be prior authorized with Concetta Amanda. Person name is lawrence number is [phone] works 8 am to 430 pm and fax number is [phone]. Patient claim number is [id number]. documented in this encounterFairfield Medical Center02-22-2023 Miscellaneous Notes* Telephone Encounter - Quinn Lazo LPN - 12/26/2022 11:41 AM EST Patient phones requesting refills as follows: Requested Prescriptions Pending Prescriptions Disp Refills tiZANidine (ZANAFLEX) 4 mg tablet 20 tablet 0 Sig: Take 1 tablet by mouth every 8 hours as needed. APRIL 12/26/22 NOV 01/04/23 Please review and advise. Quinn Lazo LPN documented in this encounterFairfield Medical Center02-22-2023 History of Present illness Narrative* Ivette Grimes MD - 12/26/2022 11:10 AM EST Patient presents with: Follow Up HPI: Patient presents today for office visit for follow up. Memory has improved. States she's not as forgetful. Headaches, nausea and dizziness are still pretty bad. MRI's have not been scheduled yet. Not doing PT. Lisinopril was increased at last OV. Monitoring BP at home. Consistently running high. Systolic in 140's and above. Dystolic 70-80's. Denies chest pain and shortness of breath. Is still dizzy and nauseated at time. She feels her bp is due to headaches. It is slowly improving. She has been off work and still waiting on MRI's to be approved. MEDICATIONS: Current Outpatient Medications Medication Sig rizatriptan (MAXALT) 10 mg tablet Take 1 tablet by mouth as needed (at onset of headache. May repeat after 2 hours.). Do not exceed 30 mg per day. lisinopril (ZESTRIL, PRINIVIL) 10 mg tablet Take 1 tablet by mouth once daily. tiZANidine (ZANAFLEX) 4 mg tablet Take 1 tablet by mouth every 8 hours as needed. ondansetron (ZOFRAN) 4 mg tablet Take 1 tablet by mouth every 8 hours as needed for nausea/vomiting. gabapentin (NEURONTIN) 300 mg capsule Take 1 tablet in AM, afternoon and bedtime. If after 2 days symptoms persist, increase to 1 tab in AM, afternoon and 2 tabs at bedtime. FLUoxetine (PROZAC) 20 mg capsule Take 1 capsule by mouth once daily. BIPAP topiramate (TOPAMAX) 100 mg tablet Take 1 tablet by mouth twice daily. dulaglutide (TRULICITY) 0.75 mg/0.5 mL pen injector Inject 0.75 mg subcutaneously one time a week. Inject dose once per week. Discard Pen After albuterol HFA (VENTOLIN HFA) 90 mcg/actuation inhaler Inhale 2 Puffs as instructed every 4 hours asneeded for wheezing/shortness of breath. fexofenadine (ALMA ALLERGY) 180 mg tablet Take 1 tablet by mouth once daily. omeprazole (PRILOSEC) 20 mg capsule Take 1 capsule by mouth daily before breakfast. 1/2 hr before meal. levonorgestrel (KYLEENA) 17.5 mcg/24 hrs (5 yrs) 19.5 mg IUD 1 Each by INTRAUTERINE route as directed. Ipratropium [place] (ATROVENT) 0.03 % nasal spray Use 2 Sprays in the nose every 12 hours. metroNIDAZOLE (METROGEL) 0.75 % Topical Gel Apply to affected area twice daily. blood sugar diagnostic (BLOOD GLUCOSE TEST) test strip Test blood sugar(s) 1 times daily. Dx: Type 2 DM - Controlled E11.9 Insulin: Yes Lancets lancets Test blood sugar(s) 1 times daily. Dx: Type 2 DM - Controlled E11.9 Insulin: No Iijdqoxb-Ab-Sfv-Fe-FA tab Take 1 tablet by mouth once daily. Herrick-3 Fatty Acids (FISH OIL) 500 mg cap Take 1 capsule by mouth once daily. (Patient taking differently: Take 1 tablet by mouth once daily. 1200 mg) No current facility-administered medications for this visit. ALLERGIES: ALLERGIES Allergen Reactions Lidocaine Hives Steroids [Betametha* Hives PAST MEDICAL HISTORY Diagnosis Date Acute cholecystitis Cholecystitis Anxiety 06/07/2014 Chronic back pain Kidney stones LETITIA treated with BiPAP Type 2 diabetes mellitus (HCC) PAST SURGICAL HISTORY Procedure Laterality Date DELIVERY ONLY 2006 , low cervical INSERT INTRAUTERINE DEVICE 10/19/08 mirena LAPAROSCOPY SURG CHOLECYSTECTOMY 2006 Cholecystectomy, lap (Rowena Monet) PAST SURGICAL HISTORY OF 2019 stent into kidney REMOVE IUD 07/13/2010 FAMILY HISTORY Problem Relation Age of Onset Alcohol/Drug Mother Heart Father [place] Cancer Father PANCREATIC CANCER Diabetes Father Coronary Artery Disease Father Anxiety disorder Sister Depression Sister Depression Brother Cancer Maternal Grandmother LUNG CANCER Diabetes Maternal Grandfather Heart Paternal Grandmother TRIPLE BYPASS SURGERY Social History Tobacco Use Smoking status: Never Smokeless tobacco: Never Vaping Use Vaping Use: Never used Substance Use Topics Alcohol use: No Drug use: No Reviewed current medications, allergies, past medical history, surgical history, family history andsocial history today. REVIEW OF SYSTEMS All other reviewed and negative other than HPI. VITALS: BP 140/74 Pulse 83 Ht 170.2 cm (5' 7) Wt 128.4 kg (283 lb) LMP 11/22/2022 (Approximate) SpO2 97% BMI 44.32 kg/m Last 4 Encounter Wt Readings: Date: Wt: 12/14/2022 125.6 kg (277 lb) 12/07/2022 126 kg (277 lb 12.8 oz) 12/07/2022 125.6 kg (277 lb) 11/27/2022 123.8 kg (273 lb) PHYSICAL EXAMINATION: General appearance: Well appearing, alert, in no acute distress, well-hydrated, well nourished. Skin: Skin color, texture, turgor normal, no suspicious rashes or lesions Lungs: Lungs clear to auscultation. No wheezing, rhonchi, rales Heart: RRR without murmur, gallop, or rubs. No ectopy Abdomen: Normal abdominal exam, Abdomen soft, non-tender. Bowel sounds normal. No masses, organomegaly Extremities: No deformities, edema, skin discoloration, clubbing or cyanosis. Good capillary refill. Musculoskeletal: No joint swelling, deformity, or tenderness Peripheral pulses: Normal Neuro: no change. ASSESSMENT/PLAN: 1. Post concussion syndrome - ICD9: 310.2, ICD10: F07.81 (primary diagnosis) - off work until 01/07. 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 Recheck in one week. 2. Essential (primary) hypertension - ICD9: 401.9, ICD10: I10 - good control - Continue current medication(s) - Goal of BP <130/80 Ivette Grimes MD documented in this encounterFairfield Medical Center02-20-2023 Miscellaneous Notes* Telephone Encounter - Nakia Caraballo RN - 12/24/2022 5:22 PM EST Last OV: 07/19/22 Last Refill: 08/03/22 FU OV: 01/22/23 Appropriate for refill routed to for review Latonia Caraballo RN documented in this encounterFairfield Medical Center02-10-2023 History of Present illness Narrative* Ivette Grimes MD - 12/14/2022 9:17 AM EST Patient presents with: Follow Up HPI: Patient presents today for office visit for concussion follow up. Not feeling any better. Somedays are better than others. Really frustrated because she wants to feel better. Still has nausea and dizziness. Symptoms controlled only when laying down. Concerns with memory issues now. Has been having trouble spelling words and being forgetful. Symptoms wax and wane. Advised to call neuro if continues to have any worsening. Saw Dr. Mejia (Neurology) on 12/07/22. MRI of brain and cervical spine ordered. Still waiting to schedule those. Conflicts over at [facility] with workers comp. Injury that prompted symptoms occurred at work.She had her gabapentin increased. He is going to follow with her after the imaging is done. She just indicated to me today it will be a comp claim. She needs his mri orders resent over and indicated on order it is workman's comp. She remains off work. She cannot focus. Has significant memory issues that impair ability to focus and carry out tasks. I do not see anyway that she can yet safely return to work even with restrictions. Will keep her off two more weeks from work. Bp has been up she feels due to her head injury. No chest pain with exertion. Some soreness to touch and is constant. Will monitor bp. MEDICATIONS: Current Outpatient Medications Medication Sig tiZANidine (ZANAFLEX) 4 mg tablet Take 1 tablet by mouth every 8 hours as needed. ondansetron (ZOFRAN) 4 mg tablet Take 1 tablet by mouth every 8 hours as needed for nausea/vomiting. gabapentin (NEURONTIN) 300 mg capsule Take 1 tablet in AM, afternoon and bedtime. If after 2 days symptoms persist, increase to 1 tab in AM, afternoon and 2 tabs at bedtime. lisinopril (ZESTRIL, PRINIVIL) 5 mg tablet Take 1 tablet by mouth once daily. FLUoxetine (PROZAC) 20 mg capsule Take 1 capsule by mouth once daily. BIPAP topiramate (TOPAMAX) 100 mg tablet Take 1 tablet by mouth twice daily. rizatriptan (MAXALT) 10 mg tablet Take 1 tablet by mouth as needed (at onset of headache. May repeat after 2 hours.). Do not exceed 30 mg per day. dulaglutide (TRULICITY) 0.75 mg/0.5 mL pen injector Inject 0.75 mg subcutaneously one time a week. Inject dose once per week. Discard Pen After albuterol HFA (VENTOLIN HFA) 90 mcg/actuation inhaler Inhale 2 Puffs as instructed every 4 hours asneeded for wheezing/shortness of breath. fexofenadine (ALMA ALLERGY) 180 mg tablet Take 1 tablet by mouth once daily. omeprazole (PRILOSEC) 20 mg capsule Take 1 capsule by mouth daily before breakfast. 1/2 hr before meal. levonorgestrel (KYLEENA) 17.5 mcg/24 hrs (5 yrs) 19.5 mg IUD 1 Each by INTRAUTERINE route as directed. Ipratropium [place] (ATROVENT) 0.03 % nasal spray Use 2 Sprays in the nose every 12 hours. metroNIDAZOLE (METROGEL) 0.75 % Topical Gel Apply to affected area twice daily. Herrick-3 Fatty Acids (FISH OIL) 500 mg cap Take 1 capsule by mouth once daily. (Patient taking differently: Take 1 tablet by mouth once daily. 1200 mg) blood sugar diagnostic (BLOOD GLUCOSE TEST) test strip Test blood sugar(s) 1 times daily. Dx: Type 2 DM - Controlled E11.9 Insulin: Yes Lancets lancets Test blood sugar(s) 1 times daily. Dx: Type 2 DM - Controlled E11.9 Insulin: No Sggjwhfw-Wr-Txq-Fe-FA tab Take 1 tablet by mouth once daily. No current facility-administered medications for this visit. ALLERGIES: ALLERGIES Allergen Reactions Lidocaine Hives Steroids [Betametha* Hives PAST MEDICAL HISTORY Diagnosis Date Acute cholecystitis Cholecystitis Anxiety 06/07/2014 Chronic back pain Kidney stones LETITIA treated with BiPAP Type 2 diabetes mellitus (HCC) PAST SURGICAL HISTORY Procedure Laterality Date DELIVERY ONLY 2006 , low cervical INSERT INTRAUTERINE DEVICE 10/19/08 mirena LAPAROSCOPY SURG CHOLECYSTECTOMY 2006 Cholecystectomy, lap (Rowena Monet) PAST SURGICAL HISTORY OF 2019 stent into kidney REMOVE IUD 07/13/2010 FAMILY HISTORY Problem Relation Age of Onset Alcohol/Drug Mother Heart Father [place] Cancer Father PANCREATIC CANCER Diabetes Father Coronary Artery Disease Father Anxiety disorder Sister Depression Sister Depression Brother Cancer Maternal Grandmother LUNG CANCER Diabetes Maternal Grandfather Heart Paternal Grandmother TRIPLE BYPASS SURGERY Social History Tobacco Use Smoking status: Never Smokeless tobacco: Never Vaping Use Vaping Use: Never used Substance Use Topics Alcohol use: No Drug use: No Reviewed current medications, allergies, past medical history, surgical history, family history andsocial history today. REVIEW OF SYSTEMS All other reviewed and negative other than HPI. VITALS: BP 160/98 Pulse 75 Ht 170.2 cm (5' 7) Wt 125.6 kg (277 lb) LMP 11/22/2022 (Approximate) SpO2 98% BMI 43.38 kg/m Last 4 Encounter Wt Readings: Date: Wt: 12/07/2022 126 kg (277 lb 12.8 oz) 12/07/2022 125.6 kg (277 lb) 11/27/2022 123.8 kg (273 lb) 10/31/2022 122.9 kg (271 lb) PHYSICAL EXAMINATION: General appearance: appears uncomfortable due to headache. Skin: Skin color, texture, turgor normal, no suspicious rashes or lesions Head: Normocephalic, no masses, lesions, tenderness or abnormalities Chest wall: tender to palpation on chest wall that reproduces her discomfort. Lungs: Lungs clear to auscultation. No wheezing, rhonchi, rales Heart: RRR without murmur, gallop, or rubs. No ectopy Abdomen: Normal abdominal exam, Abdomen soft, non-tender. Bowel sounds normal. No masses, organomegaly Neuro: Negative. ASSESSMENT/PLAN: 1. Post concussion syndrome - ICD9: 310.2, ICD10: F07.81 (primary diagnosis) - off work through 12/30/22. She is anxious to return to work. Get mri's as ordered by neuro. Continue meds. Red flags for re-assessment reviewed with patient in detail. 2. Essential (primary) hypertension - ICD9: 401.9, ICD10: I10 - suboptimal control - increase lisinopril. Recheck in two weeks. - Goal of BP <130/80 3. Microalbuminuria - ICD9: 791.0, ICD10: R80.9 - LISINOPRIL 10 MG TABLET 4. Type 2 diabetes mellitus without complication, with long-term current use of insulin (HCC) - ICD9: 250.00, V58.67, ICD10: E11.9, Z79.4 - LISINOPRIL 10 MG TABLET Ivette Grimes MD RTO in two weeks. documented in this encounterFair[facility]02-07-[facility]23 Miscellaneous Notes* Telephone Encounter - Ingrid Salmon Ma - 12/11/2022 9:55 AM EST Last office visit: 12/07/22 F/u scheduled: 12/14/22 Ingrid Salmon Ma documented in this encounterFairfield [facility] Center02-03-2023 History of Present illness Narrative* Ivette Grimes MD - 12/07/2022 8:41 PM EST Patient seen in office while computer was unavailable. See down time forms for documentation of visit which are scanned in. It was offered for patient to reschedule to a visit when records were available. They elected to still be seen and are aware of the limitations of the visit given my inability to view their previous records. documented in this encounterFairfield [facility] Center02-03-2023 History of Present illness Narrative* Ivette Mejia Jr., MD - 12/07/2022 4:39 PM EST ESTABLISHED PATIENT VISIT CHIEF COMPLAINT: New complaint of head trauma with associated symptoms. HISTORY OF PRESENT ILLNESS: Tori Gray is a 42 year old female, BMI 43.51 kg/m2 with a PMH significant for and per last office visit note of 04/09/22: 1. Intractable migraine without aura and without status migrainosus - ICD9: 346.11, ICD10: G43.019 (primary diagnosis) 2. Medication overuse headache - ICD9: 339.3, ICD10: G44.40 Worsening headaches over past months, of which definite provoking factor unknown but suspect exacerbated by other pain syndromes as well as medication overuse (tyelnol and excedrin). Encouraged pt toreduce if not stop OTC meds. Will increase Topamx to 50mg QAM and 100mg PM - reviewed SE and ADRs. If no improvement will then attempt to increase Lyrica dose as well (see pt instructions). If still no improvement may refer for botox therapy. Note pt cannot take steroids due to allergy. Would avoidtriptans given history of elevated BP. Check CMP and CBC due to intermission coordinator med use. 3. LETITIA (obstructive sleep apnea) - ICD9: 327.23, ICD10: G47.33 4. Class 3 severe obesity with body mass index (BMI) of 45.0 to 49.9 in adult, unspecified obesity type, unspecified whether serious comorbidity present (HCC) - ICD9: 278.01, V85.42, ICD10: E66.01, Z68.42 Encouraged PAP compliance. Encouraged weight loss. Contacting DME regarding no longer providing download - suspect due to outdated modem. AHI normalized on current settings. No significant leaks. Advised patient to clean and replace equipment regularly. Advised pt not to drive or operate heavy machinery when sleepy. 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 Patient now referred for NEW complaint of head trauma. ER notes and PCP notes reviewed. Per PCP note of 11/27/22: Patient presents today for office visit for ER F/U from [facility] 11/24/22. Head injury after fall. Cleaning bed at work when side rail came down. She fell backwards and hit head on wall. Loss of consciousness for approx 15 minutes. Feels significantly worse today. No acute intracranial process notes on head CT and c spine ct. Had xray of her right wrist. Today complains of dizziness and severe nausea. Refers to feeling like she's going to pass out and today is the worst day since fall. Complaints of whole body pain. More severe in neck and head. States fall has triggered her migraines. Her headache today is the worst she has ever had. She is so dizzy she cannot move. Feels very nauseated. Feels different than her previous vertigo. Her neck is sore. Her body hurts all over. Her back is sore. No focal numbness or weakness. No issues of speech or vision. Has photophobia. Is forgetting things. Appears pt had CT brain x2 at [facility] that were both unremarkable. Pt also previously referred to headache center to perform botox -- scheduled to get injections by January 2023. Note records show that pt has seen cards (EP) for QT prolongation concerns. Pt states on 11/24/22 was working at [facility] was doing a discharge, when bedside rail came down and flewbackwards and hit wall, and then hit head on window sill as went down. She was found in room unresponsive for unknown duration (pt estimates 20 minutes). States broke hair clip and had to dig it out of the back of her head. States they found her up against the wall and her neck was all messed up. Was evaluated in ER where workup reportedly negative. Did attempt to work the next day (Saturday) and was slow but made it through the day. However, by Saturday she could not get out of bed with headache dizziness (not definite vertigo). Also photophobia that has been severe since with nausea. Zofran and meclizine not helping. States entire head hurts, along with the neck. States when typically gets her normal migraine the front of her head hurts, but currently the entire head. States headaches worse when standing up and perhaps improve when lying down. Difficult to sleep until last night. Pain is worse when standing or turning neck. States one day following the trauma her face went numb (R side). States she was poking and pinching her face and could not feel anything. Still on Topamax 100mg BID. Also on gabapentin 200mg BID. BP running higher but may be secondary to pain. When patient went to ER, received migraine cocktail that temporarily helped with pain. States that memory is also awful (Short term) since hitting head. No PAP issues - using nightly. Using 8+ hours per night per pts phone félix. AHI <1.5 on average. No recent labs. Pt allergic to steroids. Takes Tylenol pm during night to help sleep. Taking Rizatriptan daily since injury. Before the trauma pt reports her migraine headaches were down to 1-2 days per week. REVIEW OF SYSTEMS GENERAL:No weight loss, malaise or fevers. HEENT: No changes in hearing or vision, no nose bleeds or other nasal problems NECK:See HPI. RESPIRATORY: Negative for cough, wheezing or shortness of breath. CARDIOVASCULAR: Negative for chest pain, leg swelling or palpitations. GASTROINTESTINAL: Negative for abdominal discomfort, blood in stools or black stools or change in bowel habits GENITOURINARY: No history of dysuria, frequency or incontinence MUSCULOSKELETAL: See HPI. NEUROLOGIC:Negative for focal numbness or weakness, vision changes, speech/languag changes - EXCEPTthat as per HPI above. SKIN:Negative for lesions, rash, and itching. HEMATOLOGIC/LYMPHATIC/IMMUNOLOGIC:Negative for prolonged bleeding, bruising easily or swollen nodes. ENDOCRINE: Negative for cold or heat intolerance, polyuria, polydipsia and goiter. The remainder of the ROS was reviewed and is negative. LAB/IMAGING: Those performed since patient's last visit have been reviewed. WBC (K/uL) Date Value 01/12/2021 9.0 RBC (M/uL) Date Value 01/12/2021 4.86 Hemoglobin (g/dL) Date Value 08/12/2015 13.4 HCT (%) Date Value 01/12/2021 42.6 MCV (fL) Date Value 01/12/2021 87.7 MCH (pg) Date Value 01/12/2021 28.4 MCHC (g/dL) Date Value 01/12/2021 32.4 RDW-CV (%) Date Value 08/12/2015 13.1 PLT (K/uL) Date Value 01/12/2021 217 MPV (fL) Date Value 01/12/2021 9.5 Glucose (mg/dL) Date Value 08/12/2015 93 BUN (mg/dL) Date Value 08/12/2015 9 Creatinine (mg/dL) Date Value 08/12/2015 0.59 (L) Sodium (mmol/L) Date Value 08/12/2015 136 Potassium (mmol/L) Date Value 08/12/2015 3.9 Chloride (mmol/L) Date Value 08/12/2015 97 (L) CO2 (mmol/L) Date Value 08/12/2015 25 Protein, Total (g/dL) Date Value 08/12/2015 7.3 Albumin (g/dL) Date Value 08/12/2015 4.3 Calcium (mg/dL) Date Value 08/12/2015 9.0 Alkaline Phosphatase (U/L) Date Value 08/12/2015 62 Bilirubin, Total (mg/dL) Date Value 08/12/2015 0.6 AST (U/L) Date Value 08/12/2015 23 ALT (U/L) Date Value 08/12/2015 26 Hep C Antibody IA (no units) Date Value 12/19/2012 Negative MEDICATIONS: ondansetron (ZOFRAN) 4 mg tablet Take 1 tablet by mouth every 8 hours as needed for nausea/vomiting. lisinopril (ZESTRIL, PRINIVIL) 5 mg tablet Take 1 tablet by mouth once daily. gabapentin (NEURONTIN) 100 mg capsule Take 2 capsules by mouth twice daily for 90 days. tiZANidine (ZANAFLEX) 4 mg tablet Take 1 tablet by mouth every 8 hours as needed. FLUoxetine (PROZAC) 20 mg capsule Take 1 capsule by mouth once daily. BIPAP topiramate (TOPAMAX) 100 mg tablet Take 1 tablet by mouth twice daily. rizatriptan (MAXALT) 10 mg tablet Take 1 tablet by mouth as needed (at onset of headache. May repeat after 2 hours.). Do not exceed 30 mg per day. dulaglutide (TRULICITY) 0.75 mg/0.5 mL pen injector Inject 0.75 mg subcutaneously one time a week. Inject dose once per week. Discard Pen After albuterol HFA (VENTOLIN HFA) 90 mcg/actuation inhaler Inhale 2 Puffs as instructed every 4 hours asneeded for wheezing/shortness of breath. fexofenadine (ALMA ALLERGY) 180 mg tablet Take 1 tablet by mouth once daily. omeprazole (PRILOSEC) 20 mg capsule Take 1 capsule by mouth daily before breakfast. 1/2 hr before meal. levonorgestrel (KYLEENA) 17.5 mcg/24 hrs (5 yrs) 19.5 mg IUD 1 Each by INTRAUTERINE route as directed. Ipratropium [place] (ATROVENT) 0.03 % nasal spray Use 2 Sprays in the nose every 12 hours. blood sugar diagnostic (BLOOD GLUCOSE TEST) test strip Test blood sugar(s) 1 times daily. Dx: Type 2 DM - Controlled E11.9 Insulin: Yes Lancets lancets Test blood sugar(s) 1 times daily. Dx: Type 2 DM - Controlled E11.9 Insulin: No Dypbziob-Gb-Fts-Fe-FA tab Take 1 tablet by mouth once daily. metroNIDAZOLE (METROGEL) 0.75 % Topical Gel Apply to affected area twice daily. (Patient not taking: Reported on 12/07/2022) Herrick-3 Fatty Acids (FISH OIL) 500 mg cap Take 1 capsule by mouth once daily. (Patient taking differently: Take 1 tablet by mouth once daily. 1200 mg) HISTORIES PAST MEDICAL HISTORY Diagnosis Date Acute cholecystitis Cholecystitis Anxiety 06/07/2014 Chronic back pain Kidney stones LETITIA treated with BiPAP Type 2 diabetes mellitus (HCC) FAMILY HISTORY Problem Relation Age of Onset Alcohol/Drug Mother Heart Father [place] Cancer Father PANCREATIC CANCER Diabetes Father Coronary Artery Disease Father Anxiety disorder Sister Depression Sister Depression Brother Cancer Maternal Grandmother LUNG CANCER Diabetes Maternal Grandfather Heart Paternal Grandmother TRIPLE BYPASS SURGERY SOCIAL HISTORY Social History Tobacco Use Smoking status: Never Smokeless tobacco: Never Vaping Use Vaping Use: Never used Substance Use Topics Alcohol use: No Drug use: No PHYSICAL EXAMINATION BP 160/94 Pulse 72 Temp 37.1 C (98.8 F) Resp 20 Wt 126 kg (277 lb 12.8 oz) LMP 11/22/2022(Approximate) SpO2 97% BMI 43.51 kg/m GENERAL EXAM: General appearance: NAD, pleasant. HEENT: NC/AT, nasal congestion absent, no oral lesions, membranes moist. NECK: Limited ROM due to subjective pain in all directions. Lungs: CTA bilaterally. CV: RRR nl S1, S2 Extr: No cyanosis, clubbing or edema. Extremity pulses palpable and normal. Skin: Cool to touch. NEUROLOGICAL EXAM: General: Awake, alert, oriented x3 (person,place,time), speech fluent, no dysarthria; comprehension, naming, repetition intact. Fund of knowledge grossly normal. CN: PERRL, fundi with no evidence of papilledema, EOMI but with + nystagmus, VFF to confrontation, facial sensation and strength are normal and symmetric, hearing is intact to finger rub bilaterally,palate and tongue movements are intact and symmetric. SCM and trapezius strength normal. Motor: Normal tone, bulk and strength (5/5) bilaterally (throughout extremities x4). Reflexes: 2/4 and symmetric, plantar stimulation is flexor. Coordination: FNF, LYUDMILA, HTS intact. No tremors. Sensation: Light touch, vibration, temperature intact throughout. No evidence of neglect. Gait: Stable with normal stride and arm swing. Assessment and Plan: ASSESSMENT/PLAN: 1. Post concussion syndrome - ICD9: 310.2, ICD10: F07.81 (primary diagnosis) 2. Intractable acute post-traumatic headache - ICD9: 339.21, ICD10: G44.311 3. Dizziness - ICD9: 780.4, ICD10: R42 4. Cervicalgia - ICD9: 723.1, ICD10: M54.2 5. History of migraine - ICD9: V12.49, ICD10: Z86.69 Patient with known history of chronic migraine headaches despite use of Topamax 100mg BID and otherfailed meds in the past, now pending botox therapy. Patient now presents s/p head trauma as above with various associated symptoms including worsening and change in headache pattern, dizziness, cognitive changes -- constellation of symptoms suggestive of post-concussion syndrome. Dx d/w pt and explained that this could take days to weeks to recover. No objective means to verify diagnosis, and would be based on clinical history. That said, given persistence of symptoms feel appropriate to get MRI brain and C spine to evaluate for any other intracranial process or spinal process associated with trauma that could be cause of symptoms and may not have been identified on CT imaging. Will hold onIV contrast due to pt reporting prior reaction (could not find in documents). As for therapy, preference would be to place on steroid titration to reduce ongoing inflammation and break headache cycle, but due to diabetes and known steroid allergy, will instead increase patient's current dose of gabapentin to 300mg TID with possible increase to evening dose to 600mg. SE and ADRs d/w pt. Note no renal impairment on prior labs in Scanned Docs. Patient will follow up after imaging complete. No other changes in meds at this time. 6. LETITIA (obstructive sleep apnea) - ICD9: 327.23, ICD10: G47.33 AHI normalized per download with evidence of PAP compliance as documented above. Reminded to clean and replace equipment regularly. No other recommendations at this time. Ivette Mejia MD I spent a total of 45 minutes on the date of the service which included preparing to see the patient, [id number] patient care, completing clinical documentation, obtaining and/or reviewing separately obtained history, performing a medically appropriate examination, counseling and educating the pat ient/family/caregiver, ordering medications, tests, or procedures, and communicating results to thepatient/family/caregiver. documented in this encounterFairfield [facility] Center01-31-2023 Miscellaneous Notes* Telephone Encounter - Marilynn Frank LPN - 12/04/2022 9:52 AM EST [place] from [facility] calling asking for copy of 11/27/2022 office visit notes and copy of letter off work to be faxed to [phone] with claim number [id number]. Printed and faxed as requested. documented in this encounterFairfield [facility] Center01-30-2023 Miscellaneous Notes* Telephone Encounter - Ivette Grimes MD - 12/03/2022 5:54 PM EST agree * Telephone Encounter - Mechelle Velasquez RN - 12/03/2022 5:31 PM EST Patient calling to ask if she should go to the ER for symptom of facial numbness that occurred 20 minutes ago? The right side of her face suddenly became numb from the top of her head to her throat. She touched her face and it was totally numb. Her lip was droopy at that time. She said symptoms resolved after 10 minutes but also says cheek is still a little numb. Advised patient to go to ER now. She is agreeable. Mechelle Velasquez RN documented in this encounterFairfield [facility] Center01-27-2023 History of Present illness Narrative* Ivette Grimes MD - 11/30/2022 1:17 PM EST Patient presents with: Acute Visit HPI:This Team Access Model visit is a virtual encounter. It required patient- provider interaction for the medical decision making as documented below. Patient has elected to have a visit through distance medicine. Patient is aware of limitations of performing the visit without a face to face visit in the office setting and agrees. See previous ov: Feels significantly worse today. No acute intracranial process notes on head CT and c spine ct. Had xray of her right wrist. Today complains of dizziness and severe nausea. Refers to feeling like she's going to pass out and today is the worst day since fall. Complaints of whole body pain. More severe in neck and head. States fall has triggered her migraines. Her headache today is the worst she has ever had. She is so dizzy she cannot move. Feels very nauseated. Feels different than her previous vertigo. Her neck is sore. Her body hurts all over. Her back is sore. No focal numbness or weakness. No issues of speech or vision. Has photophobia. Is forgetting things. Went to ER after last ov.reviewed er notes. Again happened after mechanical fall and hit her head and passed out. Repeat ct is negative. Still does not feel well. They gave her compazine and benadrylparenterally. Also gave toradol. Started to feel better. Gave her iv fluids. Is now feeling badly again. Still dizzy and feeling badly. Migraine is not bad but dizziness still is an issue. Has nausea. Sugars have been ok. No hearing loss. No ringing in the ears. Not feeling it as much lying down but worse when up right or looking at things like her phone. Has meclizine at home. No focal numbness or weakness. No speech issues. Is still forgetting things. Neck is sore but is overall ok. Her nerve block is now on hold. MEDICATIONS: Current Outpatient Medications Medication Sig lisinopril (ZESTRIL, PRINIVIL) 5 mg tablet Take 1 tablet by mouth once daily. gabapentin (NEURONTIN) 100 mg capsule Take 2 capsules by mouth twice daily for 90 days. tiZANidine (ZANAFLEX) 4 mg tablet Take 1 tablet by mouth every 8 hours as needed. FLUoxetine (PROZAC) 20 mg capsule Take 1 capsule by mouth once daily. BIPAP topiramate (TOPAMAX) 100 mg tablet Take 1 tablet by mouth twice daily. rizatriptan (MAXALT) 10 mg tablet Take 1 tablet by mouth as needed (at onset of headache. May repeat after 2 hours.). Do not exceed 30 mg per day. dulaglutide (TRULICITY) 0.75 mg/0.5 mL pen injector Inject 0.75 mg subcutaneously one time a week. Inject dose once per week. Discard Pen After albuterol HFA (VENTOLIN HFA) 90 mcg/actuation inhaler Inhale 2 Puffs as instructed every 4 hours asneeded for wheezing/shortness of breath. fexofenadine (ALMA ALLERGY) 180 mg tablet Take 1 tablet by mouth once daily. omeprazole (PRILOSEC) 20 mg capsule Take 1 capsule by mouth daily before breakfast. 1/2 hr before meal. levonorgestrel (KYLEENA) 17.5 mcg/24 hrs (5 yrs) 19.5 mg IUD 1 Each by INTRAUTERINE route as directed. Ipratropium [place] (ATROVENT) 0.03 % nasal spray Use 2 Sprays in the nose every 12 hours. metroNIDAZOLE (METROGEL) 0.75 % Topical Gel Apply to affected area twice daily. Herrick-3 Fatty Acids (FISH OIL) 500 mg cap Take 1 capsule by mouth once daily. (Patient taking differently: Take 1 tablet by mouth once daily. 1200 mg) blood sugar diagnostic (BLOOD GLUCOSE TEST) test strip Test blood sugar(s) 1 times daily. Dx: Type 2 DM - Controlled E11.9 Insulin: Yes Lancets lancets Test blood sugar(s) 1 times daily. Dx: Type 2 DM - Controlled E11.9 Insulin: No Jcopdcqt-Kp-Swx-Fe-FA tab Take 1 tablet by mouth once daily. No current facility-administered medications for this visit. ALLERGIES: ALLERGIES Allergen Reactions Lidocaine Hives Steroids [Betametha* Hives PAST MEDICAL HISTORY Diagnosis Date Acute cholecystitis Cholecystitis Anxiety 06/07/2014 Chronic back pain Kidney stones LETITIA treated with BiPAP Type 2 diabetes mellitus (HCC) PAST SURGICAL HISTORY Procedure Laterality Date DELIVERY ONLY 2006 , low cervical INSERT INTRAUTERINE DEVICE 10/19/08 mirena LAPAROSCOPY SURG CHOLECYSTECTOMY 2006 Cholecystectomy, lap (Rowena Monet) PAST SURGICAL HISTORY OF 2019 stent into kidney REMOVE IUD 07/13/2010 FAMILY HISTORY Problem Relation Age of Onset Alcohol/Drug Mother Heart Father [place] Cancer Father PANCREATIC CANCER Diabetes Father Coronary Artery Disease Father Anxiety disorder Sister Depression Sister Depression Brother Cancer Maternal Grandmother LUNG CANCER Diabetes Maternal Grandfather Heart Paternal Grandmother TRIPLE BYPASS SURGERY Social History Tobacco Use Smoking status: Never Smokeless tobacco: Never Vaping Use Vaping Use: Never used Substance Use Topics Alcohol use: No Drug use: No Reviewed current medications, allergies, past medical history, surgical history, family history andsocial history today. REVIEW OF SYSTEMS All other reviewed and negative other than HPI. VITALS: LMP 04/07/2022 (Exact Date) Last 4 Encounter Wt Readings: Date: Wt: 11/27/2022 123.8 kg (273 lb) 10/31/2022 122.9 kg (271 lb) 09/04/2022 123.1 kg (271 lb 6.4 oz) 08/02/2022 122 kg (269 lb) PHYSICAL EXAMINATION: Patient is alert and oriented during visit. Answers appropriately. ASSESSMENT/PLAN: 1. Headache, unspecified headache type - ICD9: 784.0, ICD10: R51.9 (primary diagnosis) - use meclizine and zofran prn. Head injury instructions reviewed. Off work until I see her again in one week. Consider mri or neuro if continues. 2. Concussion with loss of consciousness, initial encounter - ICD9: 850.5, ICD10: S06.0X9A Ivette Grimes documented in this encounterFairfield Medical Center01-26-2023 Miscellaneous Notes* Telephone Encounter - Elle Sanchez MD - 11/29/2022 2:50 PM EST Sorry to hear about the injury. A concussion would not require a cancellation in and of itself. However, if she has concerns that the bright lights of the hospital, travel, sounds, etc., would aggravate her condition, then it would be reasonable to reschedule. Elle Sanchez III, MD, SULEIMAN * Telephone Encounter - Darrion Carson - 11/29/2022 2:30 PM EST Patient has left a voicemail stating that she had fallen over the weekend and has a concussion. Sheis wondering if she should reschedule her appointment for 12/05/22 with you in [place] as she is not sure if this will effect her. Please advise. Darrion Shah documented in this encounterFairfield Medical Center01-24-[address] Callejas [facility] November 27, 2022 6:34pm Note Date/Time November 27, 2022 3 :56pm [facility] Medical Records Department [address] [place] [address] Emergency Department Summary 11/27/22 MR#: [id number] Acct: [id number] Name: TORI GRAY Rep #:[id number] : 1980 42 From: Tod Callejas MD PCP: Dr. Ivette Grimes MD Status:REG E R Location: ED HPI History of Present Illness Chief Complaint: Headache Informant: patient Narrative Narrative: Patient Attila presents with headache. She had a mechanical fall at work recently. She fell backwards when a railing gave way. She landed on the groundand her head hit the wall. But it hit a marble windowsill. She reportedly would have a prolonged loss of consciousness after that. She was seen here. She had CT scan of the head and neck and wrist x-rays. But she states she stillhaving a lot of headaches. She gets nauseated when she looks at lights. She isnot having neurologic symptoms such as numbness tingling or weakness. She does have a history of significant migraines. She is on topiramate routinely and hasa triptan on as needed basis. She is set to have Botox injections for these headaches. She is unsure if she is having headache from the injury directly or headache from a migraine contributed and caused by the injury. Nothing specifically makes this better but bright lights do make it worse. She has not been having fevers chills cough or other symptoms consistent with a viral illness. [facility] Medical History Acute bronchitis Acute cholecystitis Acute kidney injury Acute respiratory insufficiency Anxiety Calculus of left kidney Dysuria History of obstructive sleep apnea History of stent into kidney Hydronephrosis, left Hydroureter, left Left shoulder pain Left shoulder strain Left upper quadrant abdominal pain Microalbuminuria Nausea Obstructive Sleep Apnea-Hypopnea Syndrome LETITIA (obstructive sleep apnea) Pain of left scapula Type 2 diabetes mellitus with microalbuminuria Type 2 diabetes mellitus without complication, with long-term current use of insulin Urinary tract infection Home Medications lisinopril 5 mg tablet 5 mg PO DAILY HTN 02/14/19 [History Last Taken 09/23/19] blood sugar diagnostic (Blood Glucose Test strips) #10 ea 04/26/20 [History Last Taken Unknown] uvwasghb-ddy-Ye-FA 1 mg capsule 1 cap PO DAILY 04/26/20 [History Last Taken Unknown] ipratropium bromide 21 mcg (0.03 %) nasal spray 2 spray intranasal BID 08/23/20 [History Last Taken Unknown] omega-3 fatty acids 1,000 mg capsule (Fish Oil Concentrate) 1,000 mg PO DAILY 02/21/21 [History Last Taken Unknown] gabapentin 100 mg capsule 200 mg PO BID 01/01/22 [History Last Taken Unknown] albuterol sulfate 90 mcg/actuation aerosol inhaler 2 puff inhalation Q4H PRN shortness of breath or wheezing 08/10/22 [History Last Taken Unknown] dulaglutide 0.75 mg/0.5 mL subcutaneous pen injector (Trulicity) 0.75 mg subcut QWEEK 08/10/22 [History Last Taken Unknown] fexofenadine 180 mg tablet (Allergy Relief (fexofenadine)) 180 mg PO DAILY 08/10/22 [History Last Taken Unknown] levonorgestrel 17.5 mcg/24 hrs (5yrs) 19.5mg intrauterine device 1 device intrauterine ONCE 08/10/22 [History Last Taken Unknown] metronidazole 0.75 % topical gel 1 applic topical BID 08/10/22 [History Last Taken Unknown] sumatriptan succinate 50 mg tablet 50 mg PO ONCE PRN migraine headache 08/10/22 [History Last Taken Unknown] tizanidine 4 mg tablet 4 mg PO Q8H PRN Muscle Spasm 08/10/22 [History Last Taken Unknown] omeprazole 20 mg capsule,delayed release 20 mg PO DAILY PRN 08/16/22 [History Last Taken Unknown] topiramate 100 mg tablet 100 mg PO BID 08/16/22 [History Last Taken Unknown] Allergy/AdvReac Type Severity Reaction Status Date / Time Corticosteroids Allergy Hives Verified 11/27/22 14:36 (Glucocorticoids) [steroids] lidocaine AdvReac Intermediate Hives Verified 11/27/22 14:36 Family History Father Diabetes Myocardial infarction Pancreatic cancer Mother Alcohol abuse Drug abuse Grandfather Diabetes Grandmother Lung cancer Grandmother Heart disease Triple bypass surgery Surgical History H/O: (~2005) History of urethral stent (~2018) Hx laparoscopic cholecystectomy (~2005) Social History Smoking Status: Never smoker alcohol intake: never substance use type: does not use caffeine: Yes Type: coffee what type of physical activity do you participate in: walking frequency: daily seatbelt use: always do you feel safe at home: Yes ROS ROS ED Constitutional Constitutional ED: Denies chills or fever(s) Eyes Eyes: Reports other Details: Positive photophobia ; Denies change in vision ENT ENT ED: Denies rhinorrhea Cardiovascular Cardiovascular: Denies chest pain or palpitations Respiratory/Chest Respiratory/Chest: Denies cough or dyspnea Gastrointestinal Gastrointestinal: Reports nausea; Denies vomiting Musculoskeletal Musculoskeletal: Reports neck pain; Denies back pain Integumentary Denies Abrasions Neurologic Neurologic: Reports headache(s); Denies paresthesias or weakness Hematologic/Lymphatic Hematologic/Lymphatic: Denies easy bleeding or easy bruising EXAM Physical Exam Narrative Exam Narrative: Patient awake alert pleasant very cooperative and a very clear informant. She is in a dark room as this is more comfortable for her HEENT shows no sign of acute trauma. No rash noted. No facial tenderness. Eyes show some mild photophobia but her pupils are about 3 and half millimeters equal and reactive bilaterally. Neck shows some generalized soreness but no focal bony tenderness. Chest is clear. Heart is regular. Abdomen is nontender. Extremities show no tenderness. She has some soreness of the right wrist but really no focal tenderness. Most of her soreness is in the thenar eminence area. It is not snuffbox. Skin: Shows no rashes or pallor or diaphoresis. Neurologic patient is alert oriented appropriate with no sign of discoordination. Const Vital Signs: 11/27/22 14:36 Temperature 98.1 F Temperature Source Temporal Pulse Rate 70 Respiratory Rate 15 Blood Pressure 154/81 H Blood Pressure Mean 105 Pulse Ox 99 Oxygen Delivery Method Room Air MDM MDM MDM Narrative Medical decision making narrative: I read viewed the patient's prior charts including CT including CT of the neck and wrist x-rays that showed no acute process. My independent interpretation of today's CT of this brain without contrast shows no acute process. I see no bony injury or bleeding. Final reading by radiology also shows a normal unenhanced CT scan of the brain. Patient was given some IV fluids Compazine and Benadryl. She has slept. The headache is much better. She states it is coming back a little bit but overall better. I think this is likely caused by a combination of trauma with postconcussive syndrome in the face of somebody who has chronic migraines. I think she is okay for discharge. Since she is having some discomfort come back I will treat her here with IV Toradol. She will follow-up with her physician. Radiography Diagnostic Testing: Clinical Impression(s) from Imaging Studies Brain CT 11/27/22 14:54 IMPRESSION: Normal unenhanced CT scan of the brain. Electronically Signed: Alf Johnson MD at 15:20 EST , Discharge Plan Triage Chief Complaint: Headache ED Provider: Tod Callejas Dx/Rx/DC Orders Clinical Impression: Post-concussion headache, Headache, migraine, Closed head injury with concussion Instructions: ED Concussion Prescriptions: No Action prsvsbtl-fpk-[id number]-FA 1 mg capsule 1 mg capsule 1 cap PO DAILY (DME) blood sugar diagnostic [Blood Glucose Test] Strip See Rx Instructions .ROUTE .MEDSUPPLY Qty: 10 Rx Instructions: As directed ipratropium bromide 0.03 % spray,non-aerosol 2 spray INTRANASAL BID Rx Instructions: administer into each nostril omega-3 fatty acids [Fish Oil Concentrate] 1,000 mg capsule 1,000 mg PO DAILY gabapentin 100 mg capsule 200 mg PO BID sumatriptan succinate 50 mg tablet 50 mg PO ONCE PRN (Reason: migraine headache) Label Comments: TAKE 1 TABLET BY MOUTH ATCHEADACHE ONSET. MAYDREPEAT AFTER 2 HOURS Trulicity 0.75 mg/0.5 mL pen injector 0.75 mg subcut QWEEK Label Comments: INJECT 1 PENaSUBCUTANEOUSLY ONCE PER WEEK fexofenadine [Allergy Relief (fexofenadine)] 180 mg tablet 180 mg PO DAILY levonorgestrel 17.5 mcg/24 hrs (5 yrs) 19.5 mg intrauterine device 1 device intrauterine ONCE Rx Instructions: as a single dose metronidazole 0.75 % gel 1 applic topical BID omeprazole 20 mg capsule,delayed release(DR/EC) 20 mg PO DAILY PRN Label Comments: Take 1 capsule by mouthndaily before breakfast. 1/2 hr before meal. topiramate 100 mg tablet 100 mg PO BID Label Comments: Take 1 tablet by mouthitwice daily. albuterol sulfate 90 mcg/actuation HFA aerosol inhaler 2 puff INHALATION Q4H PRN (Reason: shortness of breath or wheezing) tizanidine 4 mg tablet 4 mg PO Q8H PRN (Reason: Muscle Spasm) lisinopril 5 MG tablet 5 mg PO DAILY Label Comments: Take 1 tablet by mouth once daily. Primary Care Provider: Ivette Grimes Referrals: Ivette Grimes MD [Primary Care Provider] - 3-5 Days Disposition Disposition: Home, Self Care What to do if you have Problems For any increased pain, shortness of breath, bleeding, nausea or vomiting, chestpain, or any unexpected problems, contact your Primary Care Provider. Call [facility] ([phone]) or report to the closest Emergency Room. Call 911 if necessary. 11/27/221833 <Electronically signed by Tod Callejas MD> Cosign Signature (if applicable): CC: Dr. Ivette Grimes MD ~ Signed [facility] Work Phone: [phone] 482-754601-24-2023 History of Present illness Narrative* Ivette Grimes MD - 11/27/2022 1:48 PM EST Patient presents with: ER F/U HPI: Patient presents today for office visit for ER F/U from [facility] 11/24/22. Head injury after fall. Cleaning bed at work when side rail came down. She fell backwards and hit head on wall. Loss of consciousness for approx 15 minutes. Feels significantly worse today. No acute intracranial process notes on head CT and c spine ct. Had xray of her right wrist. Today complains of dizziness and severe nausea. Refers to feeling like she's going to pass out and today is the worst day since fall. Complaints of whole body pain. More severe in neck and head. States fall has triggered her migraines. Her headache today is the worst she has ever had. She is so dizzy she cannot move. Feels very nauseated. Feels different than her previous vertigo. Her neck is sore. Her body hurts all over. Her back is sore. No focal numbness or weakness. No issues of speech or vision. Has photophobia. Is forgetting things. MEDICATIONS: Current Outpatient Medications Medication Sig lisinopril (ZESTRIL, PRINIVIL) 5 mg tablet Take 1 tablet by mouth once daily. gabapentin (NEURONTIN) 100 mg capsule Take 2 capsules by mouth twice daily for 90 days. tiZANidine (ZANAFLEX) 4 mg tablet Take 1 tablet by mouth every 8 hours as needed. FLUoxetine (PROZAC) 20 mg capsule Take 1 capsule by mouth once daily. BIPAP topiramate (TOPAMAX) 100 mg tablet Take 1 tablet by mouth twice daily. rizatriptan (MAXALT) 10 mg tablet Take 1 tablet by mouth as needed (at onset of headache. May repeat after 2 hours.). Do not exceed 30 mg per day. dulaglutide (TRULICITY) 0.75 mg/0.5 mL pen injector Inject 0.75 mg subcutaneously one time a week. Inject dose once per week. Discard Pen After albuterol HFA (VENTOLIN HFA) 90 mcg/actuation inhaler Inhale 2 Puffs as instructed every 4 hours asneeded for wheezing/shortness of breath. fexofenadine (ALMA ALLERGY) 180 mg tablet Take 1 tablet by mouth once daily. omeprazole (PRILOSEC) 20 mg capsule Take 1 capsule by mouth daily before breakfast. 1/2 hr before meal. levonorgestrel (KYLEENA) 17.5 mcg/24 hrs (5 yrs) 19.5 mg IUD 1 Each by INTRAUTERINE route as directed. Ipratropium [place] (ATROVENT) 0.03 % nasal spray Use 2 Sprays in the nose every 12 hours. metroNIDAZOLE (METROGEL) 0.75 % Topical Gel Apply to affected area twice daily. Herrick-3 Fatty Acids (FISH OIL) 500 mg cap Take 1 capsule by mouth once daily. (Patient taking differently: Take 1 tablet by mouth once daily. 1200 mg) blood sugar diagnostic (BLOOD GLUCOSE TEST) test strip Test blood sugar(s) 1 times daily. Dx: Type 2 DM - Controlled E11.9 Insulin: Yes Lancets lancets Test blood sugar(s) 1 times daily. Dx: Type 2 DM - Controlled E11.9 Insulin: No Lzmhkhvj-Oq-Ulh-Fe-FA tab Take 1 tablet by mouth once daily. No current facility-administered medications for this visit. ALLERGIES: ALLERGIES Allergen Reactions Lidocaine Hives Steroids [Betametha* Hives PAST MEDICAL HISTORY Diagnosis Date Acute cholecystitis Cholecystitis Anxiety 06/07/2014 Chronic back pain Kidney stones LETITIA treated with BiPAP Type 2 diabetes mellitus (HCC) PAST SURGICAL HISTORY Procedure Laterality Date DELIVERY ONLY 2006 , low cervical INSERT INTRAUTERINE DEVICE 10/19/08 mirena LAPAROSCOPY SURG CHOLECYSTECTOMY 2006 Cholecystectomy, lap (Rowena Monet) PAST SURGICAL HISTORY OF 2019 stent into kidney REMOVE IUD 07/13/2010 FAMILY HISTORY Problem Relation Age of Onset Alcohol/Drug Mother Heart Father [place] Cancer Father PANCREATIC CANCER Diabetes Father Coronary Artery Disease Father Anxiety disorder Sister Depression Sister Depression Brother Cancer Maternal Grandmother LUNG CANCER Diabetes Maternal Grandfather Heart Paternal Grandmother TRIPLE BYPASS SURGERY Social History Tobacco Use Smoking status: Never Smokeless tobacco: Never Vaping Use Vaping Use: Never used Substance Use Topics Alcohol use: No Drug use: No Reviewed current medications, allergies, past medical history, surgical history, family history andsocial history today. REVIEW OF SYSTEMS All other reviewed and negative other than HPI. HEALTH MAINTENANCE: Reviewed health maintenance issues today and recommended the following in detail. PNEUMOCOCCAL(2 - PCV) due on 07/28/2020 COVID-19 VACCINE(4 - Booster for Moderna series) due on 12/13/2021 DILATED RETINAL EXAM due on 10/05/2022 DEPRESSION ASSESSMENT Never done VITALS: BP 150/84 Pulse 75 Ht 170.2 cm (5' 7) Wt 123.8 kg (273 lb) LMP 04/07/2022 (Exact Date) SpO2 97% BMI 42.76 kg/m Last 4 Encounter Wt Readings: Date: Wt: 10/31/2022 122.9 kg (271 lb) 09/04/2022 123.1 kg (271 lb 6.4 oz) 08/02/2022 122 kg (269 lb) 07/19/2022 122.9 kg (271 lb) PHYSICAL EXAMINATION: General appearance: Well appearing, alert, in no acute distress, well-hydrated, well nourished. Skin: Skin color, texture, turgor normal, no suspicious rashes or lesions Head: Normocephalic, no masses, lesions, tenderness or abnormalities Eyes: Anicteric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 Herrick-3 Fatty Acids (FISH OIL) 500 mg cap Take 1 capsule by mouth once daily. 30 capsule 11 blood sugar diagnostic (BLOOD GLUCOSE TEST) test strip Test blood sugar(s) 1 times daily. Dx: Type 2 DM - Controlled E11.9 Insulin: Yes 50 Strip 11 Lancets lancets Test blood sugar(s) 1 times daily. Dx: Type 2 DM - Controlled E11.9 Insulin: No 100Each 11 Nbzgpwyg-Ev-Pgq-Fe-FA tab Take 1 tablet by mouth once daily. 0 No current facility-administered medications for this visit. VITAL SIGNS: There were no vitals filed for this visit. ROS: All other systems negative. PSYCHIATRIC HISTORY: Prior Diagnosis: Generalized Anxiety Disorder, and Depression Prior Provider: No prior psychiatrist Therapist: Previously followed at the counseling center. Stopped during the pandemic. Current Roller Machine Operator: No Last Hospitalization: Denies hospitalization. ECT: No Previous Discontinued Psychiatric Med Trials: Ativan as needed PRN. Paxil, Buspar (low dose), Wellbutrin SUBSTANCE USE HISTORY: Nicotine: None Caffeine: Mert, 1/day Alcohol: No history of use or dependence Marijuana: No history of use or dependence Cocaine: No history of use or dependence Opiods: No history of use or dependence SPIRITUALITY: [employer] [facility]: Tori Gray is the oldest of 2 siblings. Her brother lives in [place]. The patient was born in [place] and raised in [place], [place]. She completed Associates degree in psychology. She described her childhood as loving and supportive. Father did the best that he could for being a single parent. Mother left them when she was 12. The patient lives with daughter. Service: None Legal: Pt. denied any past legal history FAMILY PSYCHIATRIC HISTORY: Mother - Alcohol use disorder Father - Depression? PATIENT DATA: Generalized Anxiety Disorder Scale (VAHE-7) VAHE - 7 SCORES 03/29/2022 10/05/2022 VAHE-7 Score 0 8 (0-4) minimal anxiety, (5-9) mild anxiety, (10-14) moderate anxiety, (15-21) severe anxiety Patient Health Questionnaire (PHQ-9) PHQ-9 07/29/2020 03/29/2022 10/05/2022 Score 2 2 16 (0-4) minimal depression, (5-9) mild depression, (10-14) moderate depression, (15-19) moderately severe depression, (20-27) severe depression PROMIS Global Health PROMIS Global Health - (T-Scores - the mean of general population = 50. Five points is a clinicallymeaningful difference.) 04/29/2022 07/31/2022 10/05/2022 Physical T-Score 37.4 39.8 42.3 Mental T-Score 38.8 45.8 38.8 MENTAL STATUS EXAMINATION: Appearance: Casually dressed Behavior: Behaves appropriately during the encounter Social relatedness: Euthymic Speech/Language: The patient demonstrates appropriate tone, prosody, travis, phonetics, and syntax Mood: sad Affect: Full and appropriate to topic Orientation: Person, Place, Time and Situation Associations: Intact and linear Hallucinations: None Delusions: None Suicidal Ideation: No suicidal ideation, intent or plan. Homicidal Ideation: No homicidal ideation, intent or plan. Insight: Appropriate Judgment: Appropriate DIAGNOSIS: PRIMARY: Mood Disorder Major Depressive Disorder, Recurrent, Moderate SECONDARY: Anxiety Disorder Generalized Anxiety Disorder GAF: -60-51 Moderate symptoms or moderate difficulty in social, occupational or school functioning. PLAN: 1. Start Prozac to help with her mood and anxiety concerns. 2. Encouraged to start individual psychotherapy. Medication Update: - Prozac 10 mg - take 1 capsule once daily for 7 days; then take 2 capsules once daily after that. The effects and side effects of Prozac was reviewed in detail with the patient. She is in agreementwith the treatment plan and aware to reach out with any questions, concerns, or worsening of symptoms prior to the next appointment. DISPOSITION: Follow up with this provider in 4 to 6 weeks. I spent a total of 60 minutes on the date of the service which included preparing to see the patient, yqxw-[id number]-adfo patient care, completing clinical documentation, obtaining and/or reviewing separately obtained history, counseling and educating the patient/family/caregiver, ordering medications, ananth ts, or procedures, communicating with other HCPs (not separately reported), and independently interpreting results (not separately reported). ADD ON PSYCHOTHERAPY CODE : No SIGNATURE: Grace Coronel APRN.CNP PATIENT NAME: Tori Gray DATE: October 12, 2022 TIME: 8:40 AM PAGER : documented in this [facility]Fair[facility]12-06-2022 Miscellaneous Notes* Telephone Encounter - LEVAR Jasmine - 10/09/2022 8:44 AM EST Patient has been identified by name and date of : Yes Patient phones for refill(s): Requested Prescriptions Pending Prescriptions Disp Refills topiramate (TOPAMAX) 100 mg tablet 60 tablet 2 Sig: Take 1 tablet by mouth twice daily. Date of last office visit in primary care: APRIL 07/19/2022 with Karen Bansal APRN.GABRIELA No appointment scheduled [facility] Notes: Plan: All options for treatment discussed. Preventative: Topamax (continue for now). Will submit for Botox PA Abortive: Sumatriptan (Imitrex) 50mg tablet at onset of headache. If headache continues after 2 hour, you may repeat above dose. Sumatriptan should NOT be taken on a daily basis. We will get a precert for Onabotulinum Toxin A using the PREEMPT protocol. This patient meets FDA criteria for Chronic Migraine without aura, without mention of intractable migraine without mention of status migrainosus. The migraine lasts for greater than 4 hours and has been chronic for more thanthree months. Onabotulinum Toxin A is FDA approved for chronic migraine. Patient will not use in conjunction with CGRP preventive medications. Medication overuse, alternate diagnosis, confounding psychiatric or social stresses have been ruled out as the cause of headaches. Last 2 Encounter Wt Readings: Date: Wt: 09/04/2022 123.1 kg (271 lb 6.4 oz) 08/02/2022 122 kg (269 lb) Please advise. Thank you. LEVAR Jasmine documented in this encounterFairfield [facility] Center12-02-2022 Miscellaneous Notes* Telephone Encounter - Quinn Lazo LPN - 10/05/2022 8:41 AM EST Patient phones requesting refills as follows: Requested Prescriptions Pending Prescriptions Disp Refills tiZANidine (ZANAFLEX) 4 mg tablet 20 tablet 0 Sig: Take 1 tablet by mouth every 8 hours as needed. APRIL 09/04/22 NOV 11/01/22 Please review and advise. Quinn Lazo LPN documented in this [facility]11-29-[facility] Miscellaneous Notes* Telephone Encounter - Adriana Licona - 10/02/2022 11:32 AM EST Patient was called back and spoke with and scheduled with Adelina in [place] beginning of the year. Adriana Licona * Telephone Encounter - Adriana Licona - 10/02/2022 11:22 AM EST Patient called in leaving a voicemail stating she had an appointment with Adelina back in Jul. Insurance denied the RFA and was needing to finds out what else she can do? Adrinaa Licona documented in this [facility]11-16-[facility] Miscellaneous Notes* Telephone Encounter - Lubna Yoon LPN - 09/19/2022 12:51 PM EST Patient has been identified by name and date of : Yes Patient phones for refill(s): Requested Prescriptions Pending Prescriptions Disp Refills tiZANidine (ZANAFLEX) 4 mg tablet 20 tablet 0 Sig: Take 1 tablet by mouth every 8 hours as needed. Date of last office visit in primary care: 09/04/22 Please advise. Thank you. Lubna Yoon LPN documented [facility] this [facility]11-09[facility] History of Present illness Narrative* WELLINGTON Fine - 09/12/2022 1:57 PM EST BEHAVIORAL HEALTH SOCIAL WORK QUICK NOTE Provider Action/FYI Needs appointment scheduled with Grace Coronel CNP. Will forward chart to Grace and her EXTRUSION DIE REPAIR MANAGER to assist with scheduling. Patient identified for [facility] from: PCP Reason for referral: Resources Behavioral Health Resources: Psychiatry med management;Psychology - talk therapy [facility] encounter type: Chart Review Attempts to Outreach: 1 attempt Referral made: Psychiatry - Internal;Psychology - External;Psychology - Internal Psychiatry-Internal referral type: Medication Management Psychology-Internal referral type: Therapy Psychology-External referral type: Therapy Reason for external referral: Wait times at [facility] too long Final Disposition: Resources given Patient Discharged?: Yes Patient reported that caregiver was able to meet their needs today?: N/A Pt identified by name and . Patient [facility], specifically Grace Coronel CNP at therequest of pt's PCP. SW will route chart to Grace and her nurse, Coretta Spain who can assist with patient scheduling. Patient states she's on a wait list for counseling at agencies near her home. No needs further from this SW at this time. WELLINGTON Fine, ACM- documented in this encounterFair[facility] Center11-09-2022 Miscellaneous Notes* Addendum Note - Ivette Grimes MD - 09/12/2022 1:19 PM ESTAddended by: IVETTE GRIMES on: 09/12/2022 01:19 PM Modules accepted: Orders * Telephone Encounter - Ivette Grimes MD - 09/12/2022 1:18 PM EST Needs set up with Grace documented in this encounterFair[facility] Center11-03-2022 Miscellaneous Notes* Telephone Encounter - Nakia Caraballo RN - 09/06/2022 12:44 PM EDT Patient is scheduled for botox on 09/13/22 at 1:30 pm with Kaylen. Latonia Caraballo RN documented in this encounterFairfield [facility] Center11-01-2022 Miscellaneous Notes* Telephone Encounter - Jovana Blackwell MA - 09/04/2022 3:01 PM EDT Clarified with patient [facility] will be receiving 2 new providers able to administer injections. Patient will continue with plan to stay within [facility] for injections & just follow up in [place] when neuro providers are available to schedule. Jovana Blackwell MA documented in this encounterFairfield [facility] Center11-01-2022 History of Past illness Narrative* Problem Noted Date Resolved Date Chest pain 09/04/2022 09/04/2022 Contusion of knee 09/04/2022 09/04/2022 Fall 09/04/2022 09/04/2022 Headache 09/04/2022 09/04/2022 History of type 2 diabetes mellitus 09/04/2022 09/04/2022 Muscle pain 09/04/2022 09/04/2022 Pain of left scapula 09/04/2022 09/04/2022 Shortness of breath 09/04/2022 09/04/2022 Type 2 diabetes mellitus with hyperglycemia 11/202109/04/2022 Upper respiratory tract infection 09/04/2022 09/04/2022 Viral infection 09/04/2022 09/04/2022 Low back pain, unspecified 04/17/202209/04 Segmental and somatic dysfunction 04/17/2022 09/04/2022 Nausea, vomiting, and diarrhea 11/22/2021 1 11/04/2021 Numbness of upper extremity 10/10/202111/2021 Obesity, Class III, BMI >= 40 11/26/2019 Microalbuminuria 09/30/2018 09/04/2022 Strain of lumbar region 07/02/2017 09/04/20 Routine general medical exam ination at a health care facility 12/06/2012 02/22/2014 Routine general medical exam ination at a health care facility 01/23/2010 12/06/2012 Overview: 01/23/2010, from Dr. White Routine gynecological examination 01/23/2010 02/22/2014 SACROILIITIS 05/06/2009 01/23/2010 KERATOSIS PILARIS////SKIN ANOMALY NEC 03/26/2007 01/23/2010 FOLLICULITIS///HAIR DISEASES NEC 03/26/2007 01/23/2010 Lichenification and lichen simplex chronicus 01/23/2010 DERMATOFIBROMA///BENIGN KAILEY SKIN ARM 03/26/2007 01/23/2010 Contact dermatitis and other eczema, due to unspecified cause 03/26/2007 01/23/2010 Transient hypertension of , antepartum 06/19/2006 07/02/2006 Supervision of normal first 11/09/2005 07/02/2006 documented as of this encounter (statuses as of 09/04/2022) [facility] History of Past illness Narrative* Problem Noted Date Resolved Date Chest pain 09/04/2022 09/04/2022 Contusion of knee 09/04/2022 09/04/2022 Fall 09/04/2022 09/04/2022 Headache 09/04/2022 09/04/2022 History of type 2 diabetes mellitus 09/04/2022 09/04/2022 Muscle pain 09/04/2022 09/04/2022 Pain of left scapula 09/04/2022 09/04/2022 Shortness of breath 09/04/2022 09/04/2022 Type 2 diabetes mellitus with hyperglycemia 11/202109/04/2022 Upper respiratory tract infection 09/04/2022 09/04/2022 Viral infection 09/04/2022 09/04/2022 Low back pain, unspecified 04/17/202209/04 Segmental and somatic dysfunction 04/17/2022 09/04/2022 Nausea, vomiting, and diarrhea 11/22/2021 1 11/04/2021 Numbness of upper extremity 10/10/202111/2021 Obesity, Class III, BMI >= 40 11/26/2019 Microalbuminuria 09/30/2018 09/04/2022 Strain of lumbar region 07/02/2017 09/04/20 Routine general medical exam ination at a health care facility 12/06/2012 02/22/2014 Routine general medical exam ination at a health care facility 01/23/2010 12/06/2012 Overview: 01/23/2010, from Dr. White Routine gynecological examination 01/23/2010 02/22/2014 SACROILIITIS 05/06/2009 01/23/2010 KERATOSIS PILARIS////SKIN ANOMALY NEC 03/26/2007 01/23/2010 FOLLICULITIS///HAIR DISEASES NEC 03/26/2007 01/23/2010 Lichenification and lichen simplex chronicus 01/23/2010 DERMATOFIBROMA///BENIGN KAILEY SKIN ARM 03/26/2007 01/23/2010 Contact dermatitis and other eczema, due to unspecified cause 03/26/2007 01/23/2010 Transient hypertension of , antepartum 06/19/2006 07/02/2006 Supervision of normal first 11/09/2005 07/02/2006 documented as of this encounter (statuses as of 09/04/2022) [facility]11-01-2022 History of Past illness Narrative* Problem Noted Date Resolved Date Chest pain 09/04/2022 09/04/2022 Contusion of knee 09/04/2022 09/04/2022 Fall 09/04/2022 09/04/2022 Headache 09/04/2022 09/04/2022 History of type 2 diabetes mellitus 09/04/2022 09/04/2022 Muscle pain 09/04/2022 09/04/2022 Pain of left scapula 09/04/2022 09/04/2022 Shortness of breath 09/04/2022 09/04/2022 Type 2 diabetes mellitus with hyperglycemia 11/202109/04/2022 Upper respiratory tract infection 09/04/2022 09/04/2022 Viral infection 09/04/2022 09/04/2022 Low back pain, unspecified 04/17/202209/04 Segmental and somatic dysfunction 04/17/2022 09/04/2022 Nausea, vomiting, and diarrhea 11/22/2021 1 11/04/2021 Numbness of upper extremity 10/10/2021 11/0 11/2021 Obesity, Class III, BMI >= 40 11/26/2019 Microalbuminuria 09/30/2018 09/04/2022 Strain of lumbar region 07/02/2017 09/04/20 Routine general medical exam ination at a health care facility 12/06/2012 02/22/2014 Routine general medical exam ination at a health care facility 01/23/2010 12/06/2012 Overview: 01/23/2010, from Dr. White Routine gynecological examination 01/23/2010 02/22/2014 SACROILIITIS 05/06/2009 01/23/2010 KERATOSIS PILARIS////SKIN ANOMALY NEC 03/26/2007 01/23/2010 FOLLICULITIS///HAIR DISEASES NEC 03/26/2007 01/23/2010 Lichenification and lichen simplex chronicus 01/23/2010 DERMATOFIBROMA///BENIGN KAILEY SKIN ARM 03/26/2007 01/23/2010 Contact dermatitis and other eczema, due to unspecified cause 03/26/2007 01/23/2010 Transient hypertension of , antepartum 06/19/2006 07/02/2006 Supervision of normal first 11/09/2005 07/02/2006 documented as of this encounter (statuses as of 09/06/2022) [facility]11-01-2022 History of Past illness Narrative* Problem Noted Date Resolved Date Chest pain 09/04/2022 09/04/2022 Contusion of knee 09/04/2022 09/04/2022 Fall 09/04/2022 09/04/2022 Headache 09/04/2022 09/04/2022 History of type 2 diabetes mellitus 09/04/2022 09/04/2022 Muscle pain 09/04/2022 09/04/2022 Pain of left scapula 09/04/2022 09/04/2022 Shortness of breath 09/04/2022 09/04/2022 Type 2 diabetes mellitus with hyperglycemia 11/202109/04/2022 Upper respiratory tract infection 09/04/2022 09/04/2022 Viral infection 09/04/2022 09/04/2022 Low back pain, unspecified 04/17/202209/04 Segmental and somatic dysfunction 04/17/2022 09/04/2022 Nausea, vomiting, and diarrhea 11/22/2021 1 11/04/2021 Numbness of upper extremity 10/10/202111/2021 Obesity, Class III, BMI >= 40 11/26/2019 Microalbuminuria 09/30/2018 09/04/2022 Strain of lumbar region 07/02/2017 09/04/20 Routine general medical exam ination at a health care facility 12/06/2012 02/22/2014 Routine general medical exam ination at a health care facility 01/23/2010 12/06/2012 Overview: 01/23/2010, from Dr. White Routine gynecological examination 01/23/2010 02/22/2014 SACROILIITIS 05/06/2009 01/23/2010 KERATOSIS PILARIS////SKIN ANOMALY NEC 03/26/2007 01/23/2010 FOLLICULITIS///HAIR DISEASES NEC 03/26/2007 01/23/2010 Lichenification and lichen simplex chronicus 01/23/2010 DERMATOFIBROMA///BENIGN KAILEY SKIN ARM 03/26/2007 01/23/2010 Contact dermatitis and other eczema, due to unspecified cause 03/26/2007 01/23/2010 Transient hypertension of , antepartum 06/19/2006 07/02/2006 Supervision of normal first 11/09/2005 07/02/2006 documented as of this encounter (statuses as of 09/07/2022) [facility]11-01-2022 History of Past illness Narrative* Problem Noted Date Resolved Date Chest pain 09/04/2022 09/04/2022 Contusion of knee 09/04/2022 09/04/2022 Fall 09/04/2022 09/04/2022 Headache 09/04/2022 09/04/2022 History of type 2 diabetes mellitus 09/04/2022 09/04/2022 Muscle pain 09/04/2022 09/04/2022 Pain of left scapula 09/04/2022 09/04/2022 Shortness of breath 09/04/2022 09/04/2022 Type 2 diabetes mellitus with hyperglycemia 11/202109/04/2022 Upper respiratory tract infection 09/04/2022 09/04/2022 Viral infection 09/04/2022 09/04/2022 Low back pain, unspecified 04/17/202209/04 Segmental and somatic dysfunction 04/17/2022 09/04/2022 Nausea, vomiting, and diarrhea 11/22/2021 1 11/04/2021 Numbness of upper extremity 10/10/202111/2021 Obesity, Class III, BMI >= 40 11/26/2019 Microalbuminuria 09/30/2018 09/04/2022 Strain of lumbar region 07/02/2017 09/04/20 Routine general medical exam ination at a health care facility 12/06/2012 02/22/2014 Routine general medical exam ination at a health care facility 01/23/2010 12/06/2012 Overview: 01/23/2010, from Dr. White Routine gynecological examination 01/23/2010 02/22/2014 SACROILIITIS 05/06/2009 01/23/2010 KERATOSIS PILARIS////SKIN ANOMALY NEC 03/26/2007 01/23/2010 FOLLICULITIS///HAIR DISEASES NEC 03/26/2007 01/23/2010 Lichenification and lichen simplex chronicus 01/23/2010 DERMATOFIBROMA///BENIGN KAILEY SKIN ARM 03/26/2007 01/23/2010 Contact dermatitis and other eczema, due to unspecified cause 03/26/2007 01/23/2010 Transient hypertension of , antepartum 06/19/2006 07/02/2006 Supervision of normal first 11/09/2005 07/02/2006 documented as of this encounter (statuses as of 09/12/2022) [facility]11-01-2022 History of Past illness Narrative* Problem Noted Date Resolved Date Chest pain 09/04/2022 09/04/2022 Contusion of knee 09/04/2022 09/04/2022 Fall 09/04/2022 09/04/2022 Headache 09/04/2022 09/04/2022 History of type 2 diabetes mellitus 09/04/2022 09/04/2022 Muscle pain 09/04/2022 09/04/2022 Pain of left scapula 09/04/2022 09/04/2022 Shortness of breath 09/04/2022 09/04/2022 Type 2 diabetes mellitus with hyperglycemia 11/202109/04/2022 Upper respiratory tract infection 09/04/2022 09/04/2022 Viral infection 09/04/2022 09/04/2022 Low back pain, unspecified 04/17/202209/04 Segmental and somatic dysfunction 04/17/2022 09/04/2022 Nausea, vomiting, and diarrhea 11/22/2021 1 11/04/2021 Numbness of upper extremity 10/10/202111/2021 Obesity, Class III, BMI >= 40 11/26/2019 Microalbuminuria 09/30/2018 09/04/2022 Strain of lumbar region 07/02/2017 09/04/20 Routine general medical exam ination at a health care facility 12/06/2012 02/22/2014 Routine general medical exam ination at a health care facility 01/23/2010 12/06/2012 Overview: 01/23/2010, from Dr. White Routine gynecological examination 01/23/2010 02/22/2014 SACROILIITIS 05/06/2009 01/23/2010 KERATOSIS PILARIS////SKIN ANOMALY NEC 03/26/2007 01/23/2010 FOLLICULITIS///HAIR DISEASES NEC 03/26/2007 01/23/2010 Lichenification and lichen simplex chronicus 01/23/2010 DERMATOFIBROMA///BENIGN KAILEY SKIN ARM 03/26/2007 01/23/2010 Contact dermatitis and other eczema, due to unspecified cause 03/26/2007 01/23/2010 Transient hypertension of , antepartum 06/19/2006 07/02/2006 Supervision of normal first 11/09/2005 07/02/2006 documented as of this encounter (statuses as of 09/12/2022) [facility]-01-2022 History of Past illness Narrative* Problem Noted Date Resolved Date Chest pain 09/04/2022 09/04/2022 Contusion of knee 09/04/2022 09/04/2022 Fall 09/04/2022 09/04/2022 Headache 09/04/2022 09/04/2022 History of type 2 diabetes mellitus 09/04/2022 09/04/2022 Muscle pain 09/04/2022 09/04/2022 Pain of left scapula 09/04/2022 09/04/2022 Shortness of breath 09/04/2022 09/04/2022 Type 2 diabetes mellitus with hyperglycemia 11/202109/04/2022 Upper respiratory tract infection 09/04/2022 09/04/2022 Viral infection 09/04/2022 09/04/2022 Low back pain, unspecified 04/17/202209/04 Segmental and somatic dysfunction 04/17/2022 09/04/2022 Nausea, vomiting, and diarrhea 11/22/2021 1 11/04/2021 Numbness of upper extremity 10/10/202111/2021 Obesity, Class III, BMI >= 40 11/26/2019 Microalbuminuria 09/30/2018 09/04/2022 Strain of lumbar region 07/02/2017 09/04/20 Routine general medical exam ination at a health care facility 12/06/2012 02/22/2014 Routine general medical exam ination at a health care facility 01/23/2010 12/06/2012 Overview: 01/23/2010, from Dr. White Routine gynecological examination 01/23/2010 02/22/2014 SACROILIITIS 05/06/2009 01/23/2010 KERATOSIS PILARIS////SKIN ANOMALY NEC 03/26/2007 01/23/2010 FOLLICULITIS///HAIR DISEASES NEC 03/26/2007 01/23/2010 Lichenification and lichen simplex chronicus 01/23/2010 DERMATOFIBROMA///BENIGN KAILEY SKIN ARM 03/26/2007 01/23/2010 Contact dermatitis and other eczema, due to unspecified cause 03/26/2007 01/23/2010 Transient hypertension of , antepartum 06/19/2006 07/02/2006 Supervision of normal first 11/09/2005 07/02/2006 documented as of this encounter (statuses as of 09/12/2022) [place] [address]-01-2022 History of Past illness Narrative* Problem Noted Date Resolved Date Chest pain 09/04/2022 09/04/2022 Contusion of knee 09/04/2022 09/04/2022 Fall 09/04/2022 09/04/2022 Headache 09/04/2022 09/04/2022 History of type 2 diabetes mellitus 09/04/2022 09/04/2022 Muscle pain 09/04/2022 09/04/2022 Pain of left scapula 09/04/2022 09/04/2022 Shortness of breath 09/04/2022 09/04/2022 Type 2 diabetes mellitus with hyperglycemia 11/202109/04/2022 Upper respiratory tract infection 09/04/2022 09/04/2022 Viral infection 09/04/2022 09/04/2022 Low back pain, unspecified 04/17/202209/04 Segmental and somatic dysfunction 04/17/2022 09/04/2022 Nausea, vomiting, and diarrhea 11/22/2021 1 11/04/2021 Numbness of upper extremity 10/10/202111/2021 Obesity, Class III, BMI >= 40 11/26/2019 Microalbuminuria 09/30/2018 09/04/2022 Strain of lumbar region 07/02/2017 09/04/20 Routine general medical exam ination at a health care facility 12/06/2012 02/22/2014 Routine general medical exam ination at a health care facility 01/23/2010 12/06/2012 Overview: 01/23/2010, from Dr. White Routine gynecological examination 01/23/2010 02/22/2014 SACROILIITIS 05/06/2009 01/23/2010 KERATOSIS PILARIS////SKIN ANOMALY NEC 03/26/2007 01/23/2010 FOLLICULITIS///HAIR DISEASES NEC 03/26/2007 01/23/2010 Lichenification and lichen simplex chronicus 01/23/2010 DERMATOFIBROMA///BENIGN KAILEY SKIN ARM 03/26/2007 01/23/2010 Contact dermatitis and other eczema, due to unspecified cause 03/26/2007 01/23/2010 Transient hypertension of , antepartum 06/19/2006 07/02/2006 Supervision of normal first 11/09/2005 07/02/2006 documented as of this encounter (statuses as of 09/19/2022) [facility]-2022 History of Past illness Narrative* Problem Noted Date Resolved Date Chest pain 09/04/2022 09/04/2022 Contusion of knee 09/04/2022 09/04/2022 Fall 09/04/2022 09/04/2022 Headache 09/04/2022 09/04/2022 History of type 2 diabetes mellitus 09/04/2022 09/04/2022 Muscle pain 09/04/2022 09/04/2022 Pain of left scapula 09/04/2022 09/04/2022 Shortness of breath 09/04/2022 09/04/2022 Type 2 diabetes mellitus with hyperglycemia 11/202109/04/2022 Upper respiratory tract infection 09/04/2022 09/04/2022 Viral infection 09/04/2022 09/04/2022 Low back pain, unspecified 04/17/202209/04 Segmental and somatic dysfunction 04/17/2022 09/04/2022 Nausea, vomiting, and diarrhea 11/22/2021 1 11/04/2021 Numbness of upper extremity 10/10/202111/2021 Obesity, Class III, BMI >= 40 11/26/2019 Microalbuminuria 09/30/2018 09/04/2022 Strain of lumbar region 07/02/2017 09/04/20 Routine general medical exam ination at a health care facility 12/06/2012 02/22/2014 Routine general medical exam ination at a health care facility 01/23/2010 12/06/2012 Overview: 01/23/2010, from Dr. White Routine gynecological examination 01/23/2010 02/22/2014 SACROILIITIS 05/06/2009 01/23/2010 KERATOSIS PILARIS////SKIN ANOMALY NEC 03/26/2007 01/23/2010 FOLLICULITIS///HAIR DISEASES NEC 03/26/2007 01/23/2010 Lichenification and lichen simplex chronicus 01/23/2010 DERMATOFIBROMA///BENIGN KAILEY SKIN ARM 03/26/2007 01/23/2010 Contact dermatitis and other eczema, due to unspecified cause 03/26/2007 01/23/2010 Transient hypertension of , antepartum 06/19/2006 07/02/2006 Supervision of normal first 11/09/2005 07/02/2006 documented as of this encounter (statuses as of 10/02/2022) [facility]11-01-2022 History of Past illness Narrative* Problem Noted Date Resolved Date Chest pain 09/04/2022 09/04/2022 Contusion of knee 09/04/2022 09/04/2022 Fall 09/04/2022 09/04/2022 Headache 09/04/2022 09/04/2022 History of type 2 diabetes mellitus 09/04/2022 09/04/2022 Muscle pain 09/04/2022 09/04/2022 Pain of left scapula 09/04/2022 09/04/2022 Shortness of breath 09/04/2022 09/04/2022 Type 2 diabetes mellitus with hyperglycemia 11/202109/04/2022 Upper respiratory tract infection 09/04/2022 09/04/2022 Viral infection 09/04/2022 09/04/2022 Low back pain, unspecified 04/17/202209/04 Segmental and somatic dysfunction 04/17/2022 09/04/2022 Nausea, vomiting, and diarrhea 11/22/2021 1 11/04/2021 Numbness of upper extremity 10/10/202111/2021 Obesity, Class III, BMI >= 40 11/26/2019 Microalbuminuria 09/30/2018 09/04/2022 Strain of lumbar region 07/02/2017 09/04/20 Routine general medical exam ination at a health care facility 12/06/2012 02/22/2014 Routine general medical exam ination at a health care facility 01/23/2010 12/06/2012 Overview: 01/23/2010, from Dr. White Routine gynecological examination 01/23/2010 02/22/2014 SACROILIITIS 05/06/2009 01/23/2010 KERATOSIS PILARIS////SKIN ANOMALY NEC 03/26/2007 01/23/2010 FOLLICULITIS///HAIR DISEASES NEC 03/26/2007 01/23/2010 Lichenification and lichen simplex chronicus 01/23/2010 DERMATOFIBROMA///BENIGN KAILEY SKIN ARM 03/26/2007 01/23/2010 Contact dermatitis and other eczema, due to unspecified cause 03/26/2007 01/23/2010 Transient hypertension of , antepartum 06/19/2006 07/02/2006 Supervision of normal first 11/09/2005 07/02/2006 documented as of this encounter (statuses as of 10/05/2022) [facility]22 History of Past illness Narrative* Problem Noted Date Resolved Date Chest pain 09/04/2022 09/04/2022 Contusion of knee 09/04/2022 09/04/2022 Fall 09/04/2022 09/04/2022 Headache 09/04/2022 09/04/2022 History of type 2 diabetes mellitus 09/04/2022 09/04/2022 Muscle pain 09/04/2022 09/04/2022 Pain of left scapula 09/04/2022 09/04/2022 Shortness of breath 09/04/2022 09/04/2022 Type 2 diabetes mellitus with hyperglycemia 11/202109/04/2022 Upper respiratory tract infection 09/04/2022 09/04/2022 Viral infection 09/04/2022 09/04/2022 Low back pain, unspecified 04/17/202209/04 Segmental and somatic dysfunction 04/17/2022 09/04/2022 Nausea, vomiting, and diarrhea 11/22/2021 1 11/04/2021 Numbness of upper extremity 10/10/202111/2021 Obesity, Class III, BMI >= 40 11/26/2019 Microalbuminuria 09/30/2018 09/04/2022 Strain of lumbar region 07/02/2017 09/04/20 Routine general medical exam ination at a health care facility 12/06/2012 02/22/2014 Routine general medical exam ination at a health care facility 01/23/2010 12/06/2012 Overview: 01/23/2010, from Dr. White Routine gynecological examination 01/23/2010 02/22/2014 SACROILIITIS 05/06/2009 01/23/2010 KERATOSIS PILARIS////SKIN ANOMALY NEC 03/26/2007 01/23/2010 FOLLICULITIS///HAIR DISEASES NEC 03/26/2007 01/23/2010 Lichenification and lichen simplex chronicus 01/23/2010 DERMATOFIBROMA///BENIGN KAILEY SKIN ARM 03/26/2007 01/23/2010 Contact dermatitis and other eczema, due to unspecified cause 03/26/2007 01/23/2010 Transient hypertension of , antepartum 06/19/2006 07/02/2006 Supervision of normal first 11/09/2005 07/02/2006 documented as of this encounter (statuses as of 10/09/2022) [facility] History of Past illness Narrative* Problem Noted Date Resolved Date Chest pain 09/04/2022 09/04/2022 Contusion of knee 09/04/2022 09/04/2022 Fall 09/04/2022 09/04/2022 Headache 09/04/2022 09/04/2022 History of type 2 diabetes mellitus 09/04/2022 09/04/2022 Muscle pain 09/04/2022 09/04/2022 Pain of left scapula 09/04/2022 09/04/2022 Shortness of breath 09/04/2022 09/04/2022 Type 2 diabetes mellitus with hyperglycemia 11/202109/04/2022 Upper respiratory tract infection 09/04/2022 09/04/2022 Viral infection 09/04/2022 09/04/2022 Low back pain, unspecified 04/17/202209/04 Segmental and somatic dysfunction 04/17/2022 09/04/2022 Nausea, vomiting, and diarrhea 11/22/2021 1 11/04/2021 Numbness of upper extremity 10/10/202111/2021 Obesity, Class III, BMI >= 40 11/26/2019 Microalbuminuria 09/30/2018 09/04/2022 Strain of lumbar region 07/02/2017 09/04/20 Routine general medical exam ination at a health care facility 12/06/2012 02/22/2014 Routine general medical exam ination at a health care facility 01/23/2010 12/06/2012 Overview: 01/23/2010, from Dr. White Routine gynecological examination 01/23/2010 02/22/2014 SACROILIITIS 05/06/2009 01/23/2010 KERATOSIS PILARIS////SKIN ANOMALY NEC 03/26/2007 01/23/2010 FOLLICULITIS///HAIR DISEASES NEC 03/26/2007 01/23/2010 Lichenification and lichen simplex chronicus 01/23/2010 DERMATOFIBROMA///BENIGN KAILEY SKIN ARM 03/26/2007 01/23/2010 Contact dermatitis and other eczema, due to unspecified cause 03/26/2007 01/23/2010 Transient hypertension of , antepartum 06/19/2006 07/02/2006 Supervision of normal first 11/09/2005 07/02/2006 documented as of this encounter (statuses as of 10/18/2022) [facility] History of Past illness Narrative* Problem Noted Date Resolved Date Chest pain 09/04/2022 09/04/2022 Contusion of knee 09/04/2022 09/04/2022 Fall 09/04/2022 09/04/2022 Headache 09/04/2022 09/04/2022 History of type 2 diabetes mellitus 09/04/2022 09/04/2022 Muscle pain 09/04/2022 09/04/2022 Pain of left scapula 09/04/2022 09/04/2022 Shortness of breath 09/04/2022 09/04/2022 Type 2 diabetes mellitus with hyperglycemia 11/202109/04/2022 Upper respiratory tract infection 09/04/2022 09/04/2022 Viral infection 09/04/2022 09/04/2022 Low back pain, unspecified 04/17/202209/04 Segmental and somatic dysfunction 04/17/2022 09/04/2022 Nausea, vomiting, and diarrhea 11/22/2021 1 11/04/2021 Numbness of upper extremity 10/10/202111/2021 Obesity, Class III, BMI >= 40 11/26/2019 Microalbuminuria 09/30/2018 09/04/2022 Strain of lumbar region 07/02/2017 09/04/20 Routine general medical exam ination at a health care facility 12/06/2012 02/22/2014 Routine general medical exam ination at a health care facility 01/23/2010 12/06/2012 Overview: 01/23/2010, from Dr. White Routine gynecological examination 01/23/2010 02/22/2014 SACROILIITIS 05/06/2009 01/23/2010 KERATOSIS PILARIS////SKIN ANOMALY NEC 03/26/2007 01/23/2010 FOLLICULITIS///HAIR DISEASES NEC 03/26/2007 01/23/2010 Lichenification and lichen simplex chronicus 01/23/2010 DERMATOFIBROMA///BENIGN KAILEY SKIN ARM 03/26/2007 01/23/2010 Contact dermatitis and other eczema, due to unspecified cause 03/26/2007 01/23/2010 Transient hypertension of , antepartum 06/19/2006 07/02/2006 Supervision of normal first 11/09/2005 07/02/2006 documented as of this encounter (statuses as of 10/21/2022) [facility] History of Past illness Narrative* Problem Noted Date Resolved Date Chest pain 09/04/2022 09/04/2022 Contusion of knee 09/04/2022 09/04/2022 Fall 09/04/2022 09/04/2022 Headache 09/04/2022 09/04/2022 History of type 2 diabetes mellitus 09/04/2022 09/04/2022 Muscle pain 09/04/2022 09/04/2022 Pain of left scapula 09/04/2022 09/04/2022 Shortness of breath 09/04/2022 09/04/2022 Type 2 diabetes mellitus with hyperglycemia 11/202109/04/2022 Upper respiratory tract infection 09/04/2022 09/04/2022 Viral infection 09/04/2022 09/04/2022 Low back pain, unspecified 04/17/202209/04 Segmental and somatic dysfunction 04/17/2022 09/04/2022 Nausea, vomiting, and diarrhea 11/22/2021 1 11/04/2021 Numbness of upper extremity 10/10/202111/2021 Obesity, Class III, BMI >= 40 11/26/2019 Microalbuminuria 09/30/2018 09/04/2022 Strain of lumbar region 07/02/2017 09/04/20 Routine general medical exam ination at a health care facility 12/06/2012 02/22/2014 Routine general medical exam ination at a health care facility 01/23/2010 12/06/2012 Overview: 01/23/2010, from Dr. White Routine gynecological examination 01/23/2010 02/22/2014 SACROILIITIS 05/06/2009 01/23/2010 KERATOSIS PILARIS////SKIN ANOMALY NEC 03/26/2007 01/23/2010 FOLLICULITIS///HAIR DISEASES NEC 03/26/2007 01/23/2010 Lichenification and lichen simplex chronicus 01/23/2010 DERMATOFIBROMA///BENIGN KAILEY SKIN ARM 03/26/2007 01/23/2010 Contact dermatitis and other eczema, due to unspecified cause 03/26/2007 01/23/2010 Transient hypertension of , antepartum 06/19/2006 07/02/2006 Supervision of normal first 11/09/2005 07/02/2006 documented as of this encounter (statuses as of 11/09/2022) [facility] History of Past illness Narrative* Problem Noted Date Resolved Date Chest pain 09/04/2022 09/04/2022 Contusion of knee 09/04/2022 09/04/2022 Fall 09/04/2022 09/04/2022 Headache 09/04/2022 09/04/2022 History of type 2 diabetes mellitus 09/04/2022 09/04/2022 Muscle pain 09/04/2022 09/04/2022 Pain of left scapula 09/04/2022 09/04/2022 Shortness of breath 09/04/2022 09/04/2022 Type 2 diabetes mellitus with hyperglycemia 11/202109/04/2022 Upper respiratory tract infection 09/04/2022 09/04/2022 Viral infection 09/04/2022 09/04/2022 Low back pain, unspecified 04/17/202209/04 Segmental and somatic dysfunction 04/17/2022 09/04/2022 Nausea, vomiting, and diarrhea 11/22/2021 1 11/04/2021 Numbness of upper extremity 10/10/2021 1111/2021 Obesity, Class III, BMI >= 40 11/26/2019 Microalbuminuria 09/30/2018 09/04/2022 Strain of lumbar region 07/02/2017 09/04/20 Routine general medical exam ination at a health care facility 12/06/2012 02/22/2014 Routine general medical exam ination at a health care facility 01/23/2010 12/06/2012 Overview: 01/23/2010, from Dr. White Routine gynecological examination 01/23/2010 02/22/2014 SACROILIITIS 05/06/2009 01/23/2010 KERATOSIS PILARIS////SKIN ANOMALY NEC 03/26/2007 01/23/2010 FOLLICULITIS///HAIR DISEASES NEC 03/26/2007 01/23/2010 Lichenification and lichen simplex chronicus 01/23/2010 DERMATOFIBROMA///BENIGN KAILEY SKIN ARM 03/26/2007 01/23/2010 Contact dermatitis and other eczema, due to unspecified cause 03/26/2007 01/23/2010 Transient hypertension of , antepartum 06/19/2006 07/02/2006 Supervision of normal first 11/09/2005 07/02/2006 documented as of this encounter (statuses as of 11/15/2022) [facility] History of Past illness Narrative* Problem Noted Date Resolved Date Chest pain 09/04/2022 09/04/2022 Contusion of knee 09/04/2022 09/04/2022 Fall 09/04/2022 09/04/2022 Headache 09/04/2022 09/04/2022 History of type 2 diabetes mellitus 09/04/2022 09/04/2022 Muscle pain 09/04/2022 09/04/2022 Pain of left scapula 09/04/2022 09/04/2022 Shortness of breath 09/04/2022 09/04/2022 Type 2 diabetes mellitus with hyperglycemia 11/202109/04/2022 Upper respiratory tract infection 09/04/2022 09/04/2022 Viral infection 09/04/2022 09/04/2022 Low back pain, unspecified 04/17/202209/04 Segmental and somatic dysfunction 04/17/2022 09/04/2022 Nausea, vomiting, and diarrhea 11/22/2021 1 11/04/2021 Numbness of upper extremity 10/10/202111/2021 Obesity, Class III, BMI >= 40 11/26/2019 Microalbuminuria 09/30/2018 09/04/2022 Strain of lumbar region 07/02/2017 09/04/20 Routine general medical exam ination at a health care facility 12/06/2012 02/22/2014 Routine general medical exam ination at a health care facility 01/23/2010 12/06/2012 Overview: 01/23/2010, from Dr. White Routine gynecological examination 01/23/2010 02/22/2014 SACROILIITIS 05/06/2009 01/23/2010 KERATOSIS PILARIS////SKIN ANOMALY NEC 03/26/2007 01/23/2010 FOLLICULITIS///HAIR DISEASES NEC 03/26/2007 01/23/2010 Lichenification and lichen simplex chronicus 01/23/2010 DERMATOFIBROMA///BENIGN KAILEY SKIN ARM 03/26/2007 01/23/2010 Contact dermatitis and other eczema, due to unspecified cause 03/26/2007 01/23/2010 Transient hypertension of , antepartum 06/19/2006 07/02/2006 Supervision of normal first 11/09/2005 07/02/2006 documented as of this encounter (statuses as of 11/21/2022) [facility]11-01-2022 History of Past illness Narrative* Problem Noted Date Resolved Date Chest pain 09/04/2022 09/04/2022 Contusion of knee 09/04/2022 09/04/2022 Fall 09/04/2022 09/04/2022 Headache 09/04/2022 09/04/2022 History of type 2 diabetes mellitus 09/04/2022 09/04/2022 Muscle pain 09/04/2022 09/04/2022 Pain of left scapula 09/04/2022 09/04/2022 Shortness of breath 09/04/2022 09/04/2022 Type 2 diabetes mellitus with hyperglycemia 11/202109/04/2022 Upper respiratory tract infection 09/04/2022 09/04/2022 Viral infection 09/04/2022 09/04/2022 Low back pain, unspecified 04/17/202209/04 Segmental and somatic dysfunction 04/17/2022 09/04/2022 Nausea, vomiting, and diarrhea 11/22/2021 1 11/04/2021 Numbness of upper extremity 10/10/202111/2021 Obesity, Class III, BMI >= 40 11/26/2019 Microalbuminuria 09/30/2018 09/04/2022 Strain of lumbar region 07/02/2017 09/04/20 Routine general medical exam ination at a health care facility 12/06/2012 02/22/2014 Routine general medical exam ination at a health care facility 01/23/2010 12/06/2012 Overview: 01/23/2010, from Dr. White Routine gynecological examination 01/23/2010 02/22/2014 SACROILIITIS 05/06/2009 01/23/2010 KERATOSIS PILARIS////SKIN ANOMALY NEC 03/26/2007 01/23/2010 FOLLICULITIS///HAIR DISEASES NEC 03/26/2007 01/23/2010 Lichenification and lichen simplex chronicus 01/23/2010 DERMATOFIBROMA///BENIGN KAILEY SKIN ARM 03/26/2007 01/23/2010 Contact dermatitis and other eczema, due to unspecified cause 03/26/2007 01/23/2010 Transient hypertension of , antepartum 06/19/2006 07/02/2006 Supervision of normal first 11/09/2005 07/02/2006 documented as of this encounter (statuses as of 11/23/2022) [facility]11-01-2022 History of Past illness Narrative* Problem Noted Date Resolved Date Chest pain 09/04/2022 09/04/2022 Contusion of knee 09/04/2022 09/04/2022 Fall 09/04/2022 09/04/2022 Headache 09/04/2022 09/04/2022 History of type 2 diabetes mellitus 09/04/2022 09/04/2022 Muscle pain 09/04/2022 09/04/2022 Pain of left scapula 09/04/2022 09/04/2022 Shortness of breath 09/04/2022 09/04/2022 Type 2 diabetes mellitus with hyperglycemia 11/202109/04/2022 Upper respiratory tract infection 09/04/2022 09/04/2022 Viral infection 09/04/2022 09/04/2022 Low back pain, unspecified 04/17/202209/04 Segmental and somatic dysfunction 04/17/2022 09/04/2022 Nausea, vomiting, and diarrhea 11/22/2021 1 11/04/2021 Numbness of upper extremity 10/10/202111/2021 Obesity, Class III, BMI >= 40 11/26/2019 Microalbuminuria 09/30/2018 09/04/2022 Strain of lumbar region 07/02/2017 09/04/20 Routine general medical exam ination at a health care facility 12/06/2012 02/22/2014 Routine general medical exam ination at a health care facility 01/23/2010 12/06/2012 Overview: 01/23/2010, from Dr. White Routine gynecological examination 01/23/2010 02/22/2014 SACROILIITIS 05/06/2009 01/23/2010 KERATOSIS PILARIS////SKIN ANOMALY NEC 03/26/2007 01/23/2010 FOLLICULITIS///HAIR DISEASES NEC 03/26/2007 01/23/2010 Lichenification and lichen simplex chronicus 01/23/2010 DERMATOFIBROMA///BENIGN KAILEY SKIN ARM 03/26/2007 01/23/2010 Contact dermatitis and other eczema, due to unspecified cause 03/26/2007 01/23/2010 Transient hypertension of , antepartum 06/19/2006 07/02/2006 Supervision of normal first 11/09/2005 07/02/2006 documented as of this encounter (statuses as of 11/27/2022) [facility]11-01-2022 History of Past illness Narrative* Problem Noted Date Resolved Date Chest pain 09/04/2022 09/04/2022 Contusion of knee 09/04/2022 09/04/2022 Fall 09/04/2022 09/04/2022 Headache 09/04/2022 09/04/2022 History of type 2 diabetes mellitus 09/04/2022 09/04/2022 Muscle pain 09/04/2022 09/04/2022 Pain of left scapula 09/04/2022 09/04/2022 Shortness of breath 09/04/2022 09/04/2022 Type 2 diabetes mellitus with hyperglycemia 11/202109/04/2022 Upper respiratory tract infection 09/04/2022 09/04/2022 Viral infection 09/04/2022 09/04/2022 Low back pain, unspecified 04/17/202209/04 Segmental and somatic dysfunction 04/17/2022 09/04/2022 Nausea, vomiting, and diarrhea 11/22/2021 1 11/04/2021 Numbness of upper extremity 10/10/202111/2021 Obesity, Class III, BMI >= 40 11/26/2019 Microalbuminuria 09/30/2018 09/04/2022 Strain of lumbar region 07/02/2017 09/04/20 Routine general medical exam ination at a health care facility 12/06/2012 02/22/2014 Routine general medical exam ination at a health care facility 01/23/2010 12/06/2012 Overview: 01/23/2010, from Dr. White Routine gynecological examination 01/23/2010 02/22/2014 SACROILIITIS 05/06/2009 01/23/2010 KERATOSIS PILARIS////SKIN ANOMALY NEC 03/26/2007 01/23/2010 FOLLICULITIS///HAIR DISEASES NEC 03/26/2007 01/23/2010 Lichenification and lichen simplex chronicus 01/23/2010 DERMATOFIBROMA///BENIGN KAILEY SKIN ARM 03/26/2007 01/23/2010 Contact dermatitis and other eczema, due to unspecified cause 03/26/2007 01/23/2010 Transient hypertension of , antepartum 06/19/2006 07/02/2006 Supervision of normal first 11/09/2005 07/02/2006 documented as of this encounter (statuses as of 11/29/2022) [facility]11-01-2022 History of Past illness Narrative* Problem Noted Date Resolved Date Chest pain 09/04/2022 09/04/2022 Contusion of knee 09/04/2022 09/04/2022 Fall 09/04/2022 09/04/2022 Headache 09/04/2022 09/04/2022 History of type 2 diabetes mellitus 09/04/2022 09/04/2022 Muscle pain 09/04/2022 09/04/2022 Pain of left scapula 09/04/2022 09/04/2022 Shortness of breath 09/04/2022 09/04/2022 Type 2 diabetes mellitus with hyperglycemia 11/202109/04/2022 Upper respiratory tract infection 09/04/2022 09/04/2022 Viral infection 09/04/2022 09/04/2022 Low back pain, unspecified 04/17/202209/04 Segmental and somatic dysfunction 04/17/2022 09/04/2022 Nausea, vomiting, and diarrhea 11/22/2021 1 11/04/2021 Numbness of upper extremity 10/10/202111/2021 Obesity, Class III, BMI >= 40 11/26/2019 Microalbuminuria 09/30/2018 09/04/2022 Strain of lumbar region 07/02/2017 09/04/20 Routine general medical exam ination at a health care facility 12/06/2012 02/22/2014 Routine general medical exam ination at a health care facility 01/23/2010 12/06/2012 Overview: 01/23/2010, from Dr. White Routine gynecological examination 01/23/2010 02/22/2014 SACROILIITIS 05/06/2009 01/23/2010 KERATOSIS PILARIS////SKIN ANOMALY NEC 03/26/2007 01/23/2010 FOLLICULITIS///HAIR DISEASES NEC 03/26/2007 01/23/2010 Lichenification and lichen simplex chronicus 01/23/2010 DERMATOFIBROMA///BENIGN KAILEY SKIN ARM 03/26/2007 01/23/2010 Contact dermatitis and other eczema, due to unspecified cause 03/26/2007 01/23/2010 Transient hypertension of , antepartum 06/19/2006 07/02/2006 Supervision of normal first 11/09/2005 07/02/2006 documented as of this encounter (statuses as of 11/30/2022) [facility]11-01-2022 History of Past illness Narrative* Problem Noted Date Resolved Date Chest pain 09/04/2022 09/04/2022 Contusion of knee 09/04/2022 09/04/2022 Fall 09/04/2022 09/04/2022 Headache 09/04/2022 09/04/2022 History of type 2 diabetes mellitus 09/04/2022 09/04/2022 Muscle pain 09/04/2022 09/04/2022 Pain of left scapula 09/04/2022 09/04/2022 Shortness of breath 09/04/2022 09/04/2022 Type 2 diabetes mellitus with hyperglycemia 11/202109/04/2022 Upper respiratory tract infection 09/04/2022 09/04/2022 Viral infection 09/04/2022 09/04/2022 Low back pain, unspecified 04/17/202209/04 Segmental and somatic dysfunction 04/17/2022 09/04/2022 Nausea, vomiting, and diarrhea 11/22/2021 1 11/04/2021 Numbness of upper extremity 10/10/202111/2021 Obesity, Class III, BMI >= 40 11/26/2019 Microalbuminuria 09/30/2018 09/04/2022 Strain of lumbar region 07/02/2017 09/04/20 Routine general medical exam ination at a health care facility 12/06/2012 02/22/2014 Routine general medical exam ination at a health care facility 01/23/2010 12/06/2012 Overview: 01/23/2010, from Dr. White Routine gynecological examination 01/23/2010 02/22/2014 SACROILIITIS 05/06/2009 01/23/2010 KERATOSIS PILARIS////SKIN ANOMALY NEC 03/26/2007 01/23/2010 FOLLICULITIS///HAIR DISEASES NEC 03/26/2007 01/23/2010 Lichenification and lichen simplex chronicus 01/23/2010 DERMATOFIBROMA///BENIGN KAILEY SKIN ARM 03/26/2007 01/23/2010 Contact dermatitis and other eczema, due to unspecified cause 03/26/2007 01/23/2010 Transient hypertension of , antepartum 06/19/2006 07/02/2006 Supervision of normal first 11/09/2005 07/02/2006 documented as of this encounter (statuses as of 12/04/2022) [facility]11-01-2022 History of Past illness Narrative* Problem Noted Date Resolved Date Chest pain 09/04/2022 09/04/2022 Contusion of knee 09/04/2022 09/04/2022 Fall 09/04/2022 09/04/2022 Headache 09/04/2022 09/04/2022 History of type 2 diabetes mellitus 09/04/2022 09/04/2022 Muscle pain 09/04/2022 09/04/2022 Pain of left scapula 09/04/2022 09/04/2022 Shortness of breath 09/04/2022 09/04/2022 Type 2 diabetes mellitus with hyperglycemia 11/202109/04/2022 Upper respiratory tract infection 09/04/2022 09/04/2022 Viral infection 09/04/2022 09/04/2022 Low back pain, unspecified 04/17/202209/04 Segmental and somatic dysfunction 04/17/2022 09/04/2022 Nausea, vomiting, and diarrhea 11/22/2021 1 11/04/2021 Numbness of upper extremity 10/10/202111/2021 Obesity, Class III, BMI >= 40 11/26/2019 Microalbuminuria 09/30/2018 09/04/2022 Strain of lumbar region 07/02/2017 11/01/20 22 Routine general medical exam ination at a health care facility 12/06/2012 02/22/2014 Routine general medical exam ination at a health care facility 01/23/2010 12/06/2012 Overview: 01/23/2010, from Dr. White Routine gynecological examination 01/23/2010 02/22/2014 SACROILIITIS 05/06/2009 01/23/2010 KERATOSIS PILARIS////SKIN ANOMALY NEC 03/26/2007 01/23/2010 FOLLICULITIS///HAIR DISEASES NEC 03/26/2007 01/23/2010 Lichenification and lichen simplex chronicus 01/23/2010 DERMATOFIBROMA///BENIGN KAILEY SKIN ARM 03/26/2007 01/23/2010 Contact dermatitis and other eczema, due to unspecified cause 03/26/2007 01/23/2010 Transient hypertension of , antepartum 06/19/2006 07/02/2006 Supervision of normal first 11/09/2005 07/02/2006 documented as of this encounter (statuses as of 12/08/2022) [facility]11-01-[facility] History of Past illness Narrative* Problem Noted Date Resolved Date Chest pain 09/04/2022 09/04/2022 Contusion of knee 09/04/2022 09/04/2022 Fall 09/04/2022 09/04/2022 Headache 09/04/2022 09/04/2022 History of type 2 diabetes mellitus 09/04/2022 09/04/2022 Muscle pain 09/04/2022 09/04/2022 Pain of left scapula 09/04/2022 09/04/2022 Shortness of breath 09/04/2022 09/04/2022 Type 2 diabetes mellitus with hyperglycemia 11/202109/04/2022 Upper respiratory tract infection 09/04/2022 09/04/2022 Viral infection 09/04/2022 09/04/2022 Low back pain, unspecified 04/17/202209/04 Segmental and somatic dysfunction 04/17/2022 09/04/2022 Nausea, vomiting, and diarrhea 11/22/2021 1 11/04/2021 Numbness of upper extremity 10/10/202111/2021 Obesity, Class III, BMI >= 40 11/26/2019 Microalbuminuria 09/30/2018 09/04/2022 Strain of lumbar region 07/02/2017 09/04/20 Routine general medical exam ination at a health care facility 12/06/2012 02/22/2014 Routine general medical exam ination at a health care facility 01/23/2010 12/06/2012 Overview: 01/23/2010, from Dr. White Routine gynecological examination 01/23/2010 02/22/2014 SACROILIITIS 05/06/2009 01/23/2010 KERATOSIS PILARIS////SKIN ANOMALY NEC 03/26/2007 01/23/2010 FOLLICULITIS///HAIR DISEASES NEC 03/26/2007 01/23/2010 Lichenification and lichen simplex chronicus 01/23/2010 DERMATOFIBROMA///BENIGN KAILEY SKIN ARM 03/26/2007 01/23/2010 Contact dermatitis and other eczema, due to unspecified cause 03/26/2007 01/23/2010 Transient hypertension of , antepartum 06/19/2006 07/02/2006 Supervision of normal first 11/09/2005 07/02/2006 documented as of this encounter (statuses as of 12/08/2022) [facility]01-[facility] History of Past illness Narrative* Problem Noted Date Resolved Date Chest pain 09/04/2022 09/04/2022 Contusion of knee 09/04/2022 09/04/2022 Fall 09/04/2022 09/04/2022 Headache 09/04/2022 09/04/2022 History of type 2 diabetes mellitus 09/04/2022 09/04/2022 Muscle pain 09/04/2022 09/04/2022 Pain of left scapula 09/04/2022 09/04/2022 Shortness of breath 09/04/2022 09/04/2022 Type 2 diabetes mellitus with hyperglycemia 11/202109/04/2022 Upper respiratory tract infection 09/04/2022 09/04/2022 Viral infection 09/04/2022 09/04/2022 Low back pain, unspecified 04/17/202209/04 Segmental and somatic dysfunction 04/17/2022 09/04/2022 Nausea, vomiting, and diarrhea 11/22/2021 1 11/04/2021 Numbness of upper extremity 10/10/202111/2021 Obesity, Class III, BMI >= 40 11/26/2019 Microalbuminuria 09/30/2018 09/04/2022 Strain of lumbar region 07/02/2017 09/04/20 Routine general medical exam ination at a health care facility 12/06/2012 02/22/2014 Routine general medical exam ination at a health care facility 01/23/2010 12/06/2012 Overview: 01/23/2010, from Dr. White Routine gynecological examination 01/23/2010 02/22/2014 SACROILIITIS 05/06/2009 01/23/2010 KERATOSIS PILARIS////SKIN ANOMALY NEC 03/26/2007 01/23/2010 FOLLICULITIS///HAIR DISEASES NEC 03/26/2007 01/23/2010 Lichenification and lichen simplex chronicus 01/23/2010 DERMATOFIBROMA///BENIGN KAILEY SKIN ARM 03/26/2007 01/23/2010 Contact dermatitis and other eczema, due to unspecified cause 03/26/2007 01/23/2010 Transient hypertension of , antepartum 06/19/2006 07/02/2006 Supervision of normal first 11/09/2005 07/02/2006 documented as of this encounter (statuses as of 12/11/2022) [facility] History of Past illness Narrative* Problem Noted Date Resolved Date Chest pain 09/04/2022 09/04/2022 Contusion of knee 09/04/2022 09/04/2022 Fall 09/04/2022 09/04/2022 Headache 09/04/2022 09/04/2022 History of type 2 diabetes mellitus 09/04/2022 09/04/2022 Muscle pain 09/04/2022 09/04/2022 Pain of left scapula 09/04/2022 09/04/2022 Shortness of breath 09/04/2022 09/04/2022 Type 2 diabetes mellitus with hyperglycemia 11/202109/04/2022 Upper respiratory tract infection 09/04/2022 09/04/2022 Viral infection 09/04/2022 09/04/2022 Low back pain, unspecified 04/17/202209/04 Segmental and somatic dysfunction 04/17/2022 09/04/2022 Nausea, vomiting, and diarrhea 11/22/2021 1 11/04/2021 Numbness of upper extremity 10/10/2021 11/11/2021 Obesity, Class III, BMI >= 40 11/26/2019 Microalbuminuria 09/30/2018 09/04/2022 Strain of lumbar region 07/02/2017 09/04/20 Routine general medical exam ination at a health care facility 12/06/2012 02/22/2014 Routine general medical exam ination at a health care facility 01/23/2010 12/06/2012 Overview: 01/23/2010, from Dr. White Routine gynecological examination 01/23/2010 02/22/2014 SACROILIITIS 05/06/2009 01/23/2010 KERATOSIS PILARIS////SKIN ANOMALY NEC 03/26/2007 01/23/2010 FOLLICULITIS///HAIR DISEASES NEC 03/26/2007 01/23/2010 Lichenification and lichen simplex chronicus 01/23/2010 DERMATOFIBROMA///BENIGN KAILEY SKIN ARM 03/26/2007 01/23/2010 Contact dermatitis and other eczema, due to unspecified cause 03/26/2007 01/23/2010 Transient hypertension of , antepartum 06/19/2006 07/02/2006 Supervision of normal first 11/09/2005 07/02/2006 documented as of this encounter (statuses as of 12/11/2022) [facility] History of Past illness Narrative* Problem Noted Date Resolved Date Chest pain 09/04/2022 09/04/2022 Contusion of knee 09/04/2022 09/04/2022 Fall 09/04/2022 09/04/2022 Headache 09/04/2022 09/04/2022 History of type 2 diabetes mellitus 09/04/2022 09/04/2022 Muscle pain 09/04/2022 09/04/2022 Pain of left scapula 09/04/2022 09/04/2022 Shortness of breath 09/04/2022 09/04/2022 Type 2 diabetes mellitus with hyperglycemia 11/202109/04/2022 Upper respiratory tract infection 09/04/2022 09/04/2022 Viral infection 09/04/2022 09/04/2022 Low back pain, unspecified 04/17/202209/04 Segmental and somatic dysfunction 04/17/2022 09/04/2022 Nausea, vomiting, and diarrhea 11/22/2021 1 11/04/2021 Numbness of upper extremity 10/10/202111/2021 Obesity, Class III, BMI >= 40 11/26/2019 Microalbuminuria 09/30/2018 09/04/2022 Strain of lumbar region 07/02/2017 09/04/20 Routine general medical exam ination at a health care facility 12/06/2012 02/22/2014 Routine general medical exam ination at a health care facility 01/23/2010 12/06/2012 Overview: 01/23/2010, from Dr. White Routine gynecological examination 01/23/2010 02/22/2014 SACROILIITIS 05/06/2009 01/23/2010 KERATOSIS PILARIS////SKIN ANOMALY NEC 03/26/2007 01/23/2010 FOLLICULITIS///HAIR DISEASES NEC 03/26/2007 01/23/2010 Lichenification and lichen simplex chronicus 01/23/2010 DERMATOFIBROMA///BENIGN KAILEY SKIN ARM 03/26/2007 01/23/2010 Contact dermatitis and other eczema, due to unspecified cause 03/26/2007 01/23/2010 Transient hypertension of , antepartum 06/19/2006 07/02/2006 Supervision of normal first 11/09/2005 07/02/2006 documented as of this encounter (statuses as of 12/14/2022) [facility] History of Past illness Narrative* Problem Noted Date Resolved Date Chest pain 09/04/2022 09/04/2022 Contusion of knee 09/04/2022 09/04/2022 Fall 09/04/2022 09/04/2022 Headache 09/04/2022 09/04/2022 History of type 2 diabetes mellitus 09/04/2022 09/04/2022 Muscle pain 09/04/2022 09/04/2022 Pain of left scapula 09/04/2022 09/04/2022 Shortness of breath 09/04/2022 09/04/2022 Type 2 diabetes mellitus with hyperglycemia 11/202109/04/2022 Upper respiratory tract infection 09/04/2022 09/04/2022 Viral infection 09/04/2022 09/04/2022 Low back pain, unspecified 04/17/202209/04 Segmental and somatic dysfunction 04/17/2022 09/04/2022 Nausea, vomiting, and diarrhea 11/22/2021 1 11/04/2021 Numbness of upper extremity 10/10/202111/2021 Obesity, Class III, BMI >= 40 11/26/2019 Microalbuminuria 09/30/2018 09/04/2022 Strain of lumbar region 07/02/2017 09/04/20 Routine general medical exam ination at a health care facility 12/06/2012 02/22/2014 Routine general medical exam ination at a health care facility 01/23/2010 12/06/2012 Overview: 01/23/2010, from Dr. White Routine gynecological examination 01/23/2010 02/22/2014 SACROILIITIS 05/06/2009 01/23/2010 KERATOSIS PILARIS////SKIN ANOMALY NEC 03/26/2007 01/23/2010 FOLLICULITIS///HAIR DISEASES NEC 03/26/2007 01/23/2010 Lichenification and lichen simplex chronicus 01/23/2010 DERMATOFIBROMA///BENIGN KAILEY SKIN ARM 03/26/2007 01/23/2010 Contact dermatitis and other eczema, due to unspecified cause 03/26/2007 01/23/2010 Transient hypertension of , antepartum 06/19/2006 07/02/2006 Supervision of normal first 11/09/2005 07/02/2006 documented as of this encounter (statuses as of 12/21/2022) [facility] History of Past illness Narrative* Problem Noted Date Resolved Date Chest pain 09/04/2022 09/04/2022 Contusion of knee 09/04/2022 09/04/2022 Fall 09/04/2022 09/04/2022 Headache 09/04/2022 09/04/2022 History of type 2 diabetes mellitus 09/04/2022 09/04/2022 Muscle pain 09/04/2022 09/04/2022 Pain of left scapula 09/04/2022 09/04/2022 Shortness of breath 09/04/2022 09/04/2022 Type 2 diabetes mellitus with hyperglycemia 11/202109/04/2022 Upper respiratory tract infection 09/04/2022 09/04/2022 Viral infection 09/04/2022 09/04/2022 Low back pain, unspecified 04/17/202209/04 Segmental and somatic dysfunction 04/17/2022 09/04/2022 Nausea, vomiting, and diarrhea 11/22/2021 1 11/04/2021 Numbness of upper extremity 10/10/202111/2021 Obesity, Class III, BMI >= 40 11/26/2019 Microalbuminuria 09/30/2018 09/04/2022 Strain of lumbar region 07/02/2017 09/04/20 Routine general medical exam ination at a health care facility 12/06/2012 02/22/2014 Routine general medical exam ination at a health care facility 01/23/2010 12/06/2012 Overview: 01/23/2010, from Dr. White Routine gynecological examination 01/23/2010 02/22/2014 SACROILIITIS 05/06/2009 01/23/2010 KERATOSIS PILARIS////SKIN ANOMALY NEC 03/26/2007 01/23/2010 FOLLICULITIS///HAIR DISEASES NEC 03/26/2007 01/23/2010 Lichenification and lichen simplex chronicus 01/23/2010 DERMATOFIBROMA///BENIGN KAILEY SKIN ARM 03/26/2007 01/23/2010 Contact dermatitis and other eczema, due to unspecified cause 03/26/2007 01/23/2010 Transient hypertension of , antepartum 06/19/2006 07/02/2006 Supervision of normal first 11/09/2005 07/02/2006 documented as of this encounter (statuses as of 12/25/2022) [facility] History of Past illness Narrative* Problem Noted Date Resolved Date Chest pain 09/04/2022 09/04/2022 Contusion of knee 09/04/2022 09/04/2022 Fall 09/04/2022 09/04/2022 Headache 09/04/2022 09/04/2022 History of type 2 diabetes mellitus 09/04/2022 09/04/2022 Muscle pain 09/04/2022 09/04/2022 Pain of left scapula 09/04/2022 09/04/2022 Shortness of breath 09/04/2022 09/04/2022 Type 2 diabetes mellitus with hyperglycemia 11/202109/04/2022 Upper respiratory tract infection 09/04/2022 09/04/2022 Viral infection 09/04/2022 09/04/2022 Low back pain, unspecified 04/17/202209/04 Segmental and somatic dysfunction 04/17/2022 09/04/2022 Nausea, vomiting, and diarrhea 11/22/2021 1 11/04/2021 Numbness of upper extremity 10/10/202111/2021 Obesity, Class III, BMI >= 40 11/26/2019 Microalbuminuria 09/30/2018 09/04/2022 Strain of lumbar region 07/02/2017 09/04/20 Routine general medical exam ination at a health care facility 12/06/2012 02/22/2014 Routine general medical exam ination at a health care facility 01/23/2010 12/06/2012 Overview: 01/23/2010, from Dr. White Routine gynecological examination 01/23/2010 02/22/2014 SACROILIITIS 05/06/2009 01/23/2010 KERATOSIS PILARIS////SKIN ANOMALY NEC 03/26/2007 01/23/2010 FOLLICULITIS///HAIR DISEASES NEC 03/26/2007 01/23/2010 Lichenification and lichen simplex chronicus 01/23/2010 DERMATOFIBROMA///BENIGN KAILEY SKIN ARM 03/26/2007 01/23/2010 Contact dermatitis and other eczema, due to unspecified cause 03/26/2007 01/23/2010 Transient hypertension of , antepartum 06/19/2006 07/02/2006 Supervision of normal first 11/09/2005 07/02/2006 documented as of this encounter (statuses as of 12/26/2022) [facility] History of Past illness Narrative* Problem Noted Date Resolved Date Chest pain 09/04/2022 09/04/2022 Contusion of knee 09/04/2022 09/04/2022 Fall 09/04/2022 09/04/2022 Headache 09/04/2022 09/04/2022 History of type 2 diabetes mellitus 09/04/2022 09/04/2022 Muscle pain 09/04/2022 09/04/2022 Pain of left scapula 09/04/2022 09/04/2022 Shortness of breath 09/04/2022 09/04/2022 Type 2 diabetes mellitus with hyperglycemia 11/202109/04/2022 Upper respiratory tract infection 09/04/2022 09/04/2022 Viral infection 09/04/2022 09/04/2022 Low back pain, unspecified 04/17/202209/04 Segmental and somatic dysfunction 04/17/2022 09/04/2022 Nausea, vomiting, and diarrhea 11/22/2021 1 11/04/2021 Numbness of upper extremity 10/10/202111/2021 Obesity, Class III, BMI >= 40 11/26/2019 Microalbuminuria 09/30/2018 09/04/2022 Strain of lumbar region 07/02/2017 09/04/20 Routine general medical exam ination at a health care facility 12/06/2012 02/22/2014 Routine general medical exam ination at a health care facility 01/23/2010 12/06/2012 Overview: 01/23/2010, from Dr. White Routine gynecological examination 01/23/2010 02/22/2014 SACROILIITIS 05/06/2009 01/23/2010 KERATOSIS PILARIS////SKIN ANOMALY NEC 03/26/2007 01/23/2010 FOLLICULITIS///HAIR DISEASES NEC 03/26/2007 01/23/2010 Lichenification and lichen simplex chronicus 01/23/2010 DERMATOFIBROMA///BENIGN KAILEY SKIN ARM 03/26/2007 01/23/2010 Contact dermatitis and other eczema, due to unspecified cause 03/26/2007 01/23/2010 Transient hypertension of , antepartum 06/19/2006 07/02/2006 Supervision of normal first 11/09/2005 07/02/2006 documented as of this encounter (statuses as of 12/26/2022) [facility]11-01-2022 History of Past illness Narrative* Problem Noted Date Resolved Date Chest pain 09/04/2022 09/04/2022 Contusion of knee 09/04/2022 09/04/2022 Fall 09/04/2022 09/04/2022 Headache 09/04/2022 09/04/2022 History of type 2 diabetes mellitus 09/04/2022 09/04/2022 Muscle pain 09/04/2022 09/04/2022 Pain of left scapula 09/04/2022 09/04/2022 Shortness of breath 09/04/2022 09/04/2022 Type 2 diabetes mellitus with hyperglycemia 11/202109/04/2022 Upper respiratory tract infection 09/04/2022 09/04/2022 Viral infection 09/04/2022 09/04/2022 Low back pain, unspecified 04/17/202209/04 Segmental and somatic dysfunction 04/17/2022 09/04/2022 Nausea, vomiting, and diarrhea 11/22/2021 1 11/04/2021 Numbness of upper extremity 10/10/202111/2021 Obesity, Class III, BMI >= 40 11/26/2019 Microalbuminuria 09/30/2018 09/04/2022 Strain of lumbar region 07/02/2017 09/04/20 Routine general medical exam ination at a health care facility 12/06/2012 02/22/2014 Routine general medical exam ination at a health care facility 01/23/2010 12/06/2012 Overview: 01/23/2010, from Dr. White Routine gynecological examination 01/23/2010 02/22/2014 SACROILIITIS 05/06/2009 01/23/2010 KERATOSIS PILARIS////SKIN ANOMALY NEC 03/26/2007 01/23/2010 FOLLICULITIS///HAIR DISEASES NEC 03/26/2007 01/23/2010 Lichenification and lichen simplex chronicus 01/23/2010 DERMATOFIBROMA///BENIGN KAILEY SKIN ARM 03/26/2007 01/23/2010 Contact dermatitis and other eczema, due to unspecified cause 03/26/2007 01/23/2010 Transient hypertension of , antepartum 06/19/2006 07/02/2006 Supervision of normal first 11/09/2005 07/02/2006 documented as of this encounter (statuses as of 01/04/2023) [facility]11-01-2022 History of Past illness Narrative* Problem Noted Date Resolved Date Chest pain 09/04/2022 09/04/2022 Contusion of knee 09/04/2022 09/04/2022 Fall 09/04/2022 09/04/2022 Headache 09/04/2022 09/04/2022 History of type 2 diabetes mellitus 09/04/2022 09/04/2022 Muscle pain 09/04/2022 09/04/2022 Pain of left scapula 09/04/2022 09/04/2022 Shortness of breath 09/04/2022 09/04/2022 Type 2 diabetes mellitus with hyperglycemia 11/202109/04/2022 Upper respiratory tract infection 09/04/2022 09/04/2022 Viral infection 09/04/2022 09/04/2022 Low back pain, unspecified 04/17/202209/04 Segmental and somatic dysfunction 04/17/2022 09/04/2022 Nausea, vomiting, and diarrhea 11/22/2021 1 11/04/2021 Numbness of upper extremity 10/10/202111/2021 Obesity, Class III, BMI >= 40 11/26/2019 Microalbuminuria 09/30/2018 09/04/2022 Strain of lumbar region 07/02/2017 09/04/20 Routine general medical exam ination at a health care facility 12/06/2012 02/22/2014 Routine general medical exam ination at a health care facility 01/23/2010 12/06/2012 Overview: 01/23/2010, from Dr. White Routine gynecological examination 01/23/2010 02/22/2014 SACROILIITIS 05/06/2009 01/23/2010 KERATOSIS PILARIS////SKIN ANOMALY NEC 03/26/2007 01/23/2010 FOLLICULITIS///HAIR DISEASES NEC 03/26/2007 01/23/2010 Lichenification and lichen simplex chronicus 01/23/2010 DERMATOFIBROMA///BENIGN KAILEY SKIN ARM 03/26/2007 01/23/2010 Contact dermatitis and other eczema, due to unspecified cause 03/26/2007 01/23/2010 Transient hypertension of , antepartum 06/19/2006 07/02/2006 Supervision of normal first 11/09/2005 07/02/2006 documented as of this encounter (statuses as of 01/07/2023) [facility]11-01-2022 History of Past illness Narrative* Problem Noted Date Resolved Date Chest pain 09/04/2022 09/04/2022 Contusion of knee 09/04/2022 09/04/2022 Fall 09/04/2022 09/04/2022 Headache 09/04/2022 09/04/2022 History of type 2 diabetes mellitus 09/04/2022 09/04/2022 Muscle pain 09/04/2022 09/04/2022 Pain of left scapula 09/04/2022 09/04/2022 Shortness of breath 09/04/2022 09/04/2022 Type 2 diabetes mellitus with hyperglycemia 11/202109/04/2022 Upper respiratory tract infection 09/04/2022 09/04/2022 Viral infection 09/04/2022 09/04/2022 Low back pain, unspecified 04/17/202209/04 Segmental and somatic dysfunction 04/17/2022 09/04/2022 Nausea, vomiting, and diarrhea 11/22/2021 1 11/04/2021 Numbness of upper extremity 10/10/202111/2021 Obesity, Class III, BMI >= 40 11/26/2019 Microalbuminuria 09/30/2018 09/04/2022 Strain of lumbar region 07/02/2017 09/04/20 Routine general medical exam ination at a health care facility 12/06/2012 02/22/2014 Routine general medical exam ination at a health care facility 01/23/2010 12/06/2012 Overview: 01/23/2010, from Dr. White Routine gynecological examination 01/23/2010 02/22/2014 SACROILIITIS 05/06/2009 01/23/2010 KERATOSIS PILARIS////SKIN ANOMALY NEC 03/26/2007 01/23/2010 FOLLICULITIS///HAIR DISEASES NEC 03/26/2007 01/23/2010 Lichenification and lichen simplex chronicus 01/23/2010 DERMATOFIBROMA///BENIGN KAILEY SKIN ARM 03/26/2007 01/23/2010 Contact dermatitis and other eczema, due to unspecified cause 03/26/2007 01/23/2010 Transient hypertension of , antepartum 06/19/2006 07/02/2006 Supervision of normal first 11/09/2005 07/02/2006 documented as of this encounter (statuses as of 01/10/2023) [facility]11-01-2022 History of Past illness Narrative* Problem Noted Date Resolved Date Chest pain 09/04/2022 09/04/2022 Contusion of knee 09/04/2022 09/04/2022 Fall 09/04/2022 09/04/2022 Headache 09/04/2022 09/04/2022 History of type 2 diabetes mellitus 09/04/2022 09/04/2022 Muscle pain 09/04/2022 09/04/2022 Pain of left scapula 09/04/2022 09/04/2022 Shortness of breath 09/04/2022 09/04/2022 Type 2 diabetes mellitus with hyperglycemia 11/202109/04/2022 Upper respiratory tract infection 09/04/2022 09/04/2022 Viral infection 09/04/2022 09/04/2022 Low back pain, unspecified 04/17/202209/04 Segmental and somatic dysfunction 04/17/2022 09/04/2022 Nausea, vomiting, and diarrhea 11/22/2021 1 11/04/2021 Numbness of upper extremity 10/10/202111/2021 Obesity, Class III, BMI >= 40 11/26/2019 Microalbuminuria 09/30/2018 09/04/2022 Strain of lumbar region 07/02/2017 09/04/20 Routine general medical exam ination at a health care facility 12/06/2012 02/22/2014 Routine general medical exam ination at a health care facility 01/23/2010 12/06/2012 Overview: 01/23/2010, from Dr. White Routine gynecological examination 01/23/2010 02/22/2014 SACROILIITIS 05/06/2009 01/23/2010 KERATOSIS PILARIS////SKIN ANOMALY NEC 03/26/2007 01/23/2010 FOLLICULITIS///HAIR DISEASES NEC 03/26/2007 01/23/2010 Lichenification and lichen simplex chronicus 01/23/2010 DERMATOFIBROMA///BENIGN KAILEY SKIN ARM 03/26/2007 01/23/2010 Contact dermatitis and other eczema, due to unspecified cause 03/26/2007 01/23/2010 Transient hypertension of , antepartum 06/19/2006 07/02/2006 Supervision of normal first 11/09/2005 07/02/2006 documented as of this encounter (statuses as of 01/11/2023) [facility]11-01-2022 History of Past illness Narrative* Problem Noted Date Resolved Date Chest pain 09/04/2022 09/04/2022 Contusion of knee 09/04/2022 09/04/2022 Fall 09/04/2022 09/04/2022 Headache 09/04/2022 09/04/2022 History of type 2 diabetes mellitus 09/04/2022 09/04/2022 Muscle pain 09/04/2022 09/04/2022 Pain of left scapula 09/04/2022 09/04/2022 Shortness of breath 09/04/2022 09/04/2022 Type 2 diabetes mellitus with hyperglycemia 11/202109/04/2022 Upper respiratory tract infection 09/04/2022 09/04/2022 Viral infection 09/04/2022 09/04/2022 Low back pain, unspecified 04/17/202209/04 Segmental and somatic dysfunction 04/17/2022 09/04/2022 Nausea, vomiting, and diarrhea 11/22/2021 1 11/04/2021 Numbness of upper extremity 10/10/2021 11/0 11/2021 Obesity, Class III, BMI >= 40 11/26/2019 Microalbuminuria 09/30/2018 09/04/2022 Strain of lumbar region 07/02/2017 09/04/20 Routine general medical exam ination at a health care facility 12/06/2012 02/22/2014 Routine general medical exam ination at a health care facility 01/23/2010 12/06/2012 Overview: 01/23/2010, from Dr. White Routine gynecological examination 01/23/2010 02/22/2014 SACROILIITIS 05/06/2009 01/23/2010 KERATOSIS PILARIS////SKIN ANOMALY NEC 03/26/2007 01/23/2010 FOLLICULITIS///HAIR DISEASES NEC 03/26/2007 01/23/2010 Lichenification and lichen simplex chronicus 01/23/2010 DERMATOFIBROMA///BENIGN KAILEY SKIN ARM 03/26/2007 01/23/2010 Contact dermatitis and other eczema, due to unspecified cause 03/26/2007 01/23/2010 Transient hypertension of , antepartum 06/19/2006 07/02/2006 Supervision of normal first 11/09/2005 07/02/2006 documented as of this encounter (statuses as of 01/15/2023) [facility]11-01-2022 History of Past illness Narrative* Problem Noted Date Resolved Date Chest pain 09/04/2022 09/04/2022 Contusion of knee 09/04/2022 09/04/2022 Fall 09/04/2022 09/04/2022 Headache 09/04/2022 09/04/2022 History of type 2 diabetes mellitus 09/04/2022 09/04/2022 Muscle pain 09/04/2022 09/04/2022 Pain of left scapula 09/04/2022 09/04/2022 Shortness of breath 09/04/2022 09/04/2022 Type 2 diabetes mellitus with hyperglycemia 11/202109/04/2022 Upper respiratory tract infection 09/04/2022 09/04/2022 Viral infection 09/04/2022 09/04/2022 Low back pain, unspecified 04/17/202209/04 Segmental and somatic dysfunction 04/17/2022 09/04/2022 Nausea, vomiting, and diarrhea 11/22/2021 1 11/04/2021 Numbness of upper extremity 10/10/202111/2021 Obesity, Class III, BMI >= 40 11/26/2019 Microalbuminuria 09/30/2018 09/04/2022 Strain of lumbar region 07/02/2017 09/04/20 Routine general medical exam ination at a health care facility 12/06/2012 02/22/2014 Routine general medical exam ination at a health care facility 01/23/2010 12/06/2012 Overview: 01/23/2010, from Dr. White Routine gynecological examination 01/23/2010 02/22/2014 SACROILIITIS 05/06/2009 01/23/2010 KERATOSIS PILARIS////SKIN ANOMALY NEC 03/26/2007 01/23/2010 FOLLICULITIS///HAIR DISEASES NEC 03/26/2007 01/23/2010 Lichenification and lichen simplex chronicus 01/23/2010 DERMATOFIBROMA///BENIGN KAILEY SKIN ARM 03/26/2007 01/23/2010 Contact dermatitis and other eczema, due to unspecified cause 03/26/2007 01/23/2010 Transient hypertension of , antepartum 06/19/2006 07/02/2006 Supervision of normal first 11/09/2005 07/02/2006 documented as of this encounter (statuses as of 01/17/2023) [facility]11-01-2022 History of Past illness Narrative* Problem Noted Date Resolved Date Chest pain 09/04/2022 09/04/2022 Contusion of knee 09/04/2022 09/04/2022 Fall 09/04/2022 09/04/2022 Headache 09/04/2022 09/04/2022 History of type 2 diabetes mellitus 09/04/2022 09/04/2022 Muscle pain 09/04/2022 09/04/2022 Pain of left scapula 09/04/2022 09/04/2022 Shortness of breath 09/04/2022 09/04/2022 Type 2 diabetes mellitus with hyperglycemia 11/202109/04/2022 Upper respiratory tract infection 09/04/2022 09/04/2022 Viral infection 09/04/2022 09/04/2022 Low back pain, unspecified 04/17/202209/04 Segmental and somatic dysfunction 04/17/2022 09/04/2022 Nausea, vomiting, and diarrhea 11/22/2021 1 11/04/2021 Numbness of upper extremity 10/10/202111/2021 Obesity, Class III, BMI >= 40 11/26/2019 Microalbuminuria 09/30/2018 09/04/2022 Strain of lumbar region 07/02/2017 09/04/20 Routine general medical exam ination at a health care facility 12/06/2012 02/22/2014 Routine general medical exam ination at a health care facility 01/23/2010 12/06/2012 Overview: 01/23/2010, from Dr. White Routine gynecological examination 01/23/2010 02/22/2014 SACROILIITIS 05/06/2009 01/23/2010 KERATOSIS PILARIS////SKIN ANOMALY NEC 03/26/2007 01/23/2010 FOLLICULITIS///HAIR DISEASES NEC 03/26/2007 01/23/2010 Lichenification and lichen simplex chronicus 01/23/2010 DERMATOFIBROMA///BENIGN KAILEY SKIN ARM 03/26/2007 01/23/2010 Contact dermatitis and other eczema, due to unspecified cause 03/26/2007 01/23/2010 Transient hypertension of , antepartum 06/19/2006 07/02/2006 Supervision of normal first 11/09/2005 07/02/2006 documented as of this encounter (statuses as of 01/22/2023) [facility]11-01-2022 History of Past illness Narrative* Problem Noted Date Resolved Date Chest pain 09/04/2022 09/04/2022 Contusion of knee 09/04/2022 09/04/2022 Fall 09/04/2022 09/04/2022 Headache 09/04/2022 09/04/2022 History of type 2 diabetes mellitus 09/04/2022 09/04/2022 Muscle pain 09/04/2022 09/04/2022 Pain of left scapula 09/04/2022 09/04/2022 Shortness of breath 09/04/2022 09/04/2022 Type 2 diabetes mellitus with hyperglycemia 11/202109/04/2022 Upper respiratory tract infection 09/04/2022 09/04/2022 Viral infection 09/04/2022 09/04/2022 Low back pain, unspecified 04/17/202209/04 Segmental and somatic dysfunction 04/17/2022 09/04/2022 Nausea, vomiting, and diarrhea 11/22/2021 1 11/04/2021 Numbness of upper extremity 10/10/202111/2021 Obesity, Class III, BMI >= 40 11/26/2019 Microalbuminuria 09/30/2018 09/04/2022 Strain of lumbar region 07/02/2017 09/04/20 Routine general medical exam ination at a health care facility 12/06/2012 02/22/2014 Routine general medical exam ination at a health care facility 01/23/2010 12/06/2012 Overview: 01/23/2010, from Dr. White Routine gynecological examination 01/23/2010 02/22/2014 SACROILIITIS 05/06/2009 01/23/2010 KERATOSIS PILARIS////SKIN ANOMALY NEC 03/26/2007 01/23/2010 FOLLICULITIS///HAIR DISEASES NEC 03/26/2007 01/23/2010 Lichenification and lichen simplex chronicus 01/23/2010 DERMATOFIBROMA///BENIGN KAILEY SKIN ARM 03/26/2007 01/23/2010 Contact dermatitis and other eczema, due to unspecified cause 03/26/2007 01/23/2010 Transient hypertension of , antepartum 06/19/2006 07/02/2006 Supervision of normal first 11/09/2005 07/02/2006 documented as of this encounter (statuses as of 01/24/2023) [facility]11-01-2022 History of Past illness Narrative* Problem Noted Date Resolved Date Chest pain 09/04/2022 09/04/2022 Contusion of knee 09/04/2022 09/04/2022 Fall 09/04/2022 09/04/2022 Headache 09/04/2022 09/04/2022 History of type 2 diabetes mellitus 09/04/2022 09/04/2022 Muscle pain 09/04/2022 09/04/2022 Pain of left scapula 09/04/2022 09/04/2022 Shortness of breath 09/04/2022 09/04/2022 Type 2 diabetes mellitus with hyperglycemia 11/202109/04/2022 Upper respiratory tract infection 09/04/2022 09/04/2022 Viral infection 09/04/2022 09/04/2022 Low back pain, unspecified 04/17/202209/04 Segmental and somatic dysfunction 04/17/2022 09/04/2022 Nausea, vomiting, and diarrhea 11/22/2021 1 11/04/2021 Numbness of upper extremity 10/10/202111/2021 Obesity, Class III, BMI >= 40 11/26/2019 Microalbuminuria 09/30/2018 09/04/2022 Strain of lumbar region 07/02/2017 09/04/20 Routine general medical exam ination at a health care facility 12/06/2012 02/22/2014 Routine general medical exam ination at a health care facility 01/23/2010 12/06/2012 Overview: 01/23/2010, from Dr. White Routine gynecological examination 01/23/2010 02/22/2014 SACROILIITIS 05/06/2009 01/23/2010 KERATOSIS PILARIS////SKIN ANOMALY NEC 03/26/2007 01/23/2010 FOLLICULITIS///HAIR DISEASES NEC 03/26/2007 01/23/2010 Lichenification and lichen simplex chronicus 01/23/2010 DERMATOFIBROMA///BENIGN KAILEY SKIN ARM 03/26/2007 01/23/2010 Contact dermatitis and other eczema, due to unspecified cause 03/26/2007 01/23/2010 Transient hypertension of , antepartum 06/19/2006 07/02/2006 Supervision of normal first 11/09/2005 07/02/2006 documented as of this encounter (statuses as of 01/31/2023) [facility] History of Past illness Narrative* Problem Noted Date Resolved Date Chest pain 09/04/2022 09/04/2022 Contusion of knee 09/04/2022 09/04/2022 Fall 09/04/2022 09/04/2022 Headache 09/04/2022 09/04/2022 History of type 2 diabetes mellitus 09/04/2022 09/04/2022 Muscle pain 09/04/2022 09/04/2022 Pain of left scapula 09/04/2022 09/04/2022 Shortness of breath 09/04/2022 09/04/2022 Type 2 diabetes mellitus with hyperglycemia 11/202109/04/2022 Upper respiratory tract infection 09/04/2022 09/04/2022 Viral infection 09/04/2022 09/04/2022 Low back pain, unspecified 04/17/202209/04 Segmental and somatic dysfunction 04/17/2022 09/04/2022 Nausea, vomiting, and diarrhea 11/22/2021 1 11/04/2021 Numbness of upper extremity 10/10/202111/2021 Obesity, Class III, BMI >= 40 11/26/2019 Microalbuminuria 09/30/2018 09/04/2022 Strain of lumbar region 07/02/2017 09/04/20 Routine general medical exam ination at a health care facility 12/06/2012 02/22/2014 Routine general medical exam ination at a health care facility 01/23/2010 12/06/2012 Overview: 01/23/2010, from Dr. White Routine gynecological examination 01/23/2010 02/22/2014 SACROILIITIS 05/06/2009 01/23/2010 KERATOSIS PILARIS////SKIN ANOMALY NEC 03/26/2007 01/23/2010 FOLLICULITIS///HAIR DISEASES NEC 03/26/2007 01/23/2010 Lichenification and lichen simplex chronicus 01/23/2010 DERMATOFIBROMA///BENIGN KAILEY SKIN ARM 03/26/2007 01/23/2010 Contact dermatitis and other eczema, due to unspecified cause 03/26/2007 01/23/2010 Transient hypertension of , antepartum 06/19/2006 07/02/2006 Supervision of normal first 11/09/2005 07/02/2006 documented as of this encounter (statuses as of 01/31/2023) [facility] History of Past illness Narrative* Problem Noted Date Resolved Date Chest pain 09/04/2022 09/04/2022 Contusion of knee 09/04/2022 09/04/2022 Fall 09/04/2022 09/04/2022 Headache 09/04/2022 09/04/2022 History of type 2 diabetes mellitus 09/04/2022 09/04/2022 Muscle pain 09/04/2022 09/04/2022 Pain of left scapula 09/04/2022 09/04/2022 Shortness of breath 09/04/2022 09/04/2022 Type 2 diabetes mellitus with hyperglycemia 11/202109/04/2022 Upper respiratory tract infection 09/04/2022 09/04/2022 Viral infection 09/04/2022 09/04/2022 Low back pain, unspecified 04/17/202209/04 Segmental and somatic dysfunction 04/17/2022 09/04/2022 Nausea, vomiting, and diarrhea 11/22/2021 1 11/04/2021 Numbness of upper extremity 10/10/202111/2021 Obesity, Class III, BMI >= 40 11/26/2019 Microalbuminuria 09/30/2018 09/04/2022 Strain of lumbar region 07/02/2017 09/04/20 Routine general medical exam ination at a health care facility 12/06/2012 02/22/2014 Routine general medical exam ination at a health care facility 01/23/2010 12/06/2012 Overview: 01/23/2010, from Dr. White Routine gynecological examination 01/23/2010 02/22/2014 SACROILIITIS 05/06/2009 01/23/2010 KERATOSIS PILARIS////SKIN ANOMALY NEC 03/26/2007 01/23/2010 FOLLICULITIS///HAIR DISEASES NEC 03/26/2007 01/23/2010 Lichenification and lichen simplex chronicus 01/23/2010 DERMATOFIBROMA///BENIGN KAILEY SKIN ARM 03/26/2007 01/23/2010 Contact dermatitis and other eczema, due to unspecified cause 03/26/2007 01/23/2010 Transient hypertension of , antepartum 06/19/2006 07/02/2006 Supervision of normal first 11/09/2005 07/02/2006 documented as of this encounter (statuses as of 02/11/2023) [facility] History of Past illness Narrative* Problem Noted Date Resolved Date Chest pain 09/04/2022 09/04/2022 Contusion of knee 09/04/2022 09/04/2022 Fall 09/04/2022 09/04/2022 Headache 09/04/2022 09/04/2022 History of type 2 diabetes mellitus 09/04/2022 09/04/2022 Muscle pain 09/04/2022 09/04/2022 Pain of left scapula 09/04/2022 09/04/2022 Shortness of breath 09/04/2022 09/04/2022 Type 2 diabetes mellitus with hyperglycemia 11/202109/04/2022 Upper respiratory tract infection 09/04/2022 09/04/2022 Viral infection 09/04/2022 09/04/2022 Low back pain, unspecified 04/17/202209/04 Segmental and somatic dysfunction 04/17/2022 09/04/2022 Nausea, vomiting, and diarrhea 11/22/2021 1 11/04/2021 Numbness of upper extremity 10/10/202111/2021 Obesity, Class III, BMI >= 40 11/26/2019 Microalbuminuria 09/30/2018 09/04/2022 Strain of lumbar region 07/02/2017 09/04/20 Routine general medical exam ination at a health care facility 12/06/2012 02/22/2014 Routine general medical exam ination at a health care facility 01/23/2010 12/06/2012 Overview: 01/23/2010, from Dr. White Routine gynecological examination 01/23/2010 02/22/2014 SACROILIITIS 05/06/2009 01/23/2010 KERATOSIS PILARIS////SKIN ANOMALY NEC 03/26/2007 01/23/2010 FOLLICULITIS///HAIR DISEASES NEC 03/26/2007 01/23/2010 Lichenification and lichen simplex chronicus 01/23/2010 DERMATOFIBROMA///BENIGN KAILEY SKIN ARM 03/26/2007 01/23/2010 Contact dermatitis and other eczema, due to unspecified cause 03/26/2007 01/23/2010 Transient hypertension of , antepartum 06/19/2006 07/02/2006 Supervision of normal first 11/09/2005 07/02/2006 documented as of this encounter (statuses as of 02/14/2023) [facility] History of Past illness Narrative* Problem Noted Date Resolved Date Chest pain 09/04/2022 09/04/2022 Contusion of knee 09/04/2022 09/04/2022 Fall 09/04/2022 09/04/2022 Headache 09/04/2022 09/04/2022 History of type 2 diabetes mellitus 09/04/2022 09/04/2022 Muscle pain 09/04/2022 09/04/2022 Pain of left scapula 09/04/2022 09/04/2022 Shortness of breath 09/04/2022 09/04/2022 Type 2 diabetes mellitus with hyperglycemia 11/202109/04/2022 Upper respiratory tract infection 09/04/2022 09/04/2022 Viral infection 09/04/2022 09/04/2022 Low back pain, unspecified 04/17/202209/04 Segmental and somatic dysfunction 04/17/2022 09/04/2022 Nausea, vomiting, and diarrhea 11/22/2021 1 11/04/2021 Numbness of upper extremity 10/10/202111/2021 Obesity, Class III, BMI >= 40 11/26/2019 Microalbuminuria 09/30/2018 09/04/2022 Strain of lumbar region 07/02/2017 09/04/20 Routine general medical exam ination at a health care facility 12/06/2012 02/22/2014 Routine general medical exam ination at a health care facility 01/23/2010 12/06/2012 Overview: 01/23/2010, from Dr. White Routine gynecological examination 01/23/2010 02/22/2014 SACROILIITIS 05/06/2009 01/23/2010 KERATOSIS PILARIS////SKIN ANOMALY NEC 03/26/2007 01/23/2010 FOLLICULITIS///HAIR DISEASES NEC 03/26/2007 01/23/2010 Lichenification and lichen simplex chronicus 01/23/2010 DERMATOFIBROMA///BENIGN KAILYE SKIN ARM 03/26/2007 01/23/2010 Contact dermatitis and other eczema, due to unspecified cause 03/26/2007 01/23/2010 Transient hypertension of , antepartum 06/19/2006 07/02/2006 Supervision of normal first 11/09/2005 07/02/2006 documented as of this encounter (statuses as of 02/16/2023) [facility] History of Past illness Narrative* Problem Noted Date Resolved Date Chest pain 09/04/2022 09/04/2022 Contusion of knee 09/04/2022 09/04/2022 Fall 09/04/2022 09/04/2022 Headache 09/04/2022 09/04/2022 History of type 2 diabetes mellitus 09/04/2022 09/04/2022 Muscle pain 09/04/2022 09/04/2022 Pain of left scapula 09/04/2022 09/04/2022 Shortness of breath 09/04/2022 09/04/2022 Type 2 diabetes mellitus with hyperglycemia 11/202109/04/2022 Upper respiratory tract infection 09/04/2022 09/04/2022 Viral infection 09/04/2022 09/04/2022 Low back pain, unspecified 04/17/202209/04 Segmental and somatic dysfunction 04/17/2022 09/04/2022 Nausea, vomiting, and diarrhea 11/22/2021 1 11/04/2021 Numbness of upper extremity 10/10/202111/2021 Obesity, Class III, BMI >= 40 11/26/2019 Microalbuminuria 09/30/2018 09/04/2022 Strain of lumbar region 07/02/2017 09/04/20 Routine general medical exam ination at a health care facility 12/06/2012 02/22/2014 Routine general medical exam ination at a health care facility 01/23/2010 12/06/2012 Overview: 01/23/2010, from Dr. White Routine gynecological examination 01/23/2010 02/22/2014 SACROILIITIS 05/06/2009 01/23/2010 KERATOSIS PILARIS////SKIN ANOMALY NEC 03/26/2007 01/23/2010 FOLLICULITIS///HAIR DISEASES NEC 03/26/2007 01/23/2010 Lichenification and lichen simplex chronicus 01/23/2010 DERMATOFIBROMA///BENIGN KAILEY SKIN ARM 03/26/2007 01/23/2010 Contact dermatitis and other eczema, due to unspecified cause 03/26/2007 01/23/2010 Transient hypertension of , antepartum 06/19/2006 07/02/2006 Supervision of normal first 11/09/2005 07/02/2006 documented as of this encounter (statuses as of 02/25/2023) [facility] History of Past illness Narrative* Problem Noted Date Resolved Date Chest pain 09/04/2022 09/04/2022 Contusion of knee 09/04/2022 09/04/2022 Fall 09/04/2022 09/04/2022 Headache 09/04/2022 09/04/2022 History of type 2 diabetes mellitus 09/04/2022 09/04/2022 Muscle pain 09/04/2022 09/04/2022 Pain of left scapula 09/04/2022 09/04/2022 Shortness of breath 09/04/2022 09/04/2022 Type 2 diabetes mellitus with hyperglycemia 11/202109/04/2022 Upper respiratory tract infection 09/04/2022 09/04/2022 Viral infection 09/04/2022 09/04/2022 Low back pain, unspecified 04/17/202209/04 Segmental and somatic dysfunction 04/17/2022 09/04/2022 Nausea, vomiting, and diarrhea 11/22/2021 1 11/04/2021 Numbness of upper extremity 10/10/202111/2021 Obesity, Class III, BMI >= 40 11/26/2019 Microalbuminuria 09/30/2018 09/04/2022 Strain of lumbar region 07/02/2017 09/04/20 Routine general medical exam ination at a health care facility 12/06/2012 02/22/2014 Routine general medical exam ination at a health care facility 01/23/2010 12/06/2012 Overview: 01/23/2010, from Dr. White Routine gynecological examination 01/23/2010 02/22/2014 SACROILIITIS 05/06/2009 01/23/2010 KERATOSIS PILARIS////SKIN ANOMALY NEC 03/26/2007 01/23/2010 FOLLICULITIS///HAIR DISEASES NEC 03/26/2007 01/23/2010 Lichenification and lichen simplex chronicus 01/23/2010 DERMATOFIBROMA///BENIGN KAILEY SKIN ARM 03/26/2007 01/23/2010 Contact dermatitis and other eczema, due to unspecified cause 03/26/2007 01/23/2010 Transient hypertension of , antepartum 06/19/2006 07/02/2006 Supervision of normal first 11/09/2005 07/02/2006 documented as of this encounter (statuses as of 02/27/2023) [facility]11-01-2022 History of Past illness Narrative* Problem Noted Date Resolved Date Chest pain 09/04/2022 09/04/2022 Contusion of knee 09/04/2022 09/04/2022 Fall 09/04/2022 09/04/2022 Headache 09/04/2022 09/04/2022 History of type 2 diabetes mellitus 09/04/2022 09/04/2022 Muscle pain 09/04/2022 09/04/2022 Pain of left scapula 09/04/2022 09/04/2022 Shortness of breath 09/04/2022 09/04/2022 Type 2 diabetes mellitus with hyperglycemia 11/202109/04/2022 Upper respiratory tract infection 09/04/2022 09/04/2022 Viral infection 09/04/2022 09/04/2022 Low back pain, unspecified 04/17/202209/04 Segmental and somatic dysfunction 04/17/2022 09/04/2022 Nausea, vomiting, and diarrhea 11/22/2021 1 11/04/2021 Numbness of upper extremity 10/10/202111/2021 Obesity, Class III, BMI >= 40 11/26/2019 Microalbuminuria 09/30/2018 09/04/2022 Strain of lumbar region 07/02/2017 09/04/20 Routine general medical exam ination at a health care facility 12/06/2012 02/22/2014 Routine general medical exam ination at a health care facility 01/23/2010 12/06/2012 Overview: 01/23/2010, from Dr. White Routine gynecological examination 01/23/2010 02/22/2014 SACROILIITIS 05/06/2009 01/23/2010 KERATOSIS PILARIS////SKIN ANOMALY NEC 03/26/2007 01/23/2010 FOLLICULITIS///HAIR DISEASES NEC 03/26/2007 01/23/2010 Lichenification and lichen simplex chronicus 01/23/2010 DERMATOFIBROMA///BENIGN KAILEY SKIN ARM 03/26/2007 01/23/2010 Contact dermatitis and other eczema, due to unspecified cause 03/26/2007 01/23/2010 Transient hypertension of , antepartum 06/19/2006 07/02/2006 Supervision of normal first 11/09/2005 07/02/2006 documented as of this encounter (statuses as of 02/28/2023) [facility]11-01-2022 History of Past illness Narrative* Problem Noted Date Resolved Date Chest pain 09/04/2022 09/04/2022 Contusion of knee 09/04/2022 09/04/2022 Fall 09/04/2022 09/04/2022 Headache 09/04/2022 09/04/2022 History of type 2 diabetes mellitus 09/04/2022 09/04/2022 Muscle pain 09/04/2022 09/04/2022 Pain of left scapula 09/04/2022 09/04/2022 Shortness of breath 09/04/2022 09/04/2022 Type 2 diabetes mellitus with hyperglycemia 11/202109/04/2022 Upper respiratory tract infection 09/04/2022 09/04/2022 Viral infection 09/04/2022 09/04/2022 Low back pain, unspecified 04/17/202209/04 Segmental and somatic dysfunction 04/17/2022 09/04/2022 Nausea, vomiting, and diarrhea 11/22/2021 1 11/04/2021 Numbness of upper extremity 10/10/202111/2021 Obesity, Class III, BMI >= 40 11/26/2019 Microalbuminuria 09/30/2018 09/04/2022 Strain of lumbar region 07/02/2017 09/04/20 Routine general medical exam ination at a health care facility 12/06/2012 02/22/2014 Routine general medical exam ination at a health care facility 01/23/2010 12/06/2012 Overview: 01/23/2010, from Dr. White Routine gynecological examination 01/23/2010 02/22/2014 SACROILIITIS 05/06/2009 01/23/2010 KERATOSIS PILARIS////SKIN ANOMALY NEC 03/26/2007 01/23/2010 FOLLICULITIS///HAIR DISEASES NEC 03/26/2007 01/23/2010 Lichenification and lichen simplex chronicus 01/23/2010 DERMATOFIBROMA///BENIGN KAILEY SKIN ARM 03/26/2007 01/23/2010 Contact dermatitis and other eczema, due to unspecified cause 03/26/2007 01/23/2010 Transient hypertension of , antepartum 06/19/2006 07/02/2006 Supervision of normal first 11/09/2005 07/02/2006 documented as of this encounter (statuses as of 03/01/2023) [facility]11-01-2022 History of Past illness Narrative* Problem Noted Date Resolved Date Chest pain 09/04/2022 09/04/2022 Contusion of knee 09/04/2022 09/04/2022 Fall 09/04/2022 09/04/2022 Headache 09/04/2022 09/04/2022 History of type 2 diabetes mellitus 09/04/2022 09/04/2022 Muscle pain 09/04/2022 09/04/2022 Pain of left scapula 09/04/2022 09/04/2022 Shortness of breath 09/04/2022 09/04/2022 Type 2 diabetes mellitus with hyperglycemia 11/202109/04/2022 Upper respiratory tract infection 09/04/2022 09/04/2022 Viral infection 09/04/2022 09/04/2022 Low back pain, unspecified 04/17/202209/04 Segmental and somatic dysfunction 04/17/2022 09/04/2022 Nausea, vomiting, and diarrhea 11/22/2021 1 11/04/2021 Numbness of upper extremity 10/10/202111/2021 Obesity, Class III, BMI >= 40 11/26/2019 Microalbuminuria 09/30/2018 09/04/2022 Strain of lumbar region 07/02/2017 09/04/20 Routine general medical exam ination at a health care facility 12/06/2012 02/22/2014 Routine general medical exam ination at a health care facility 01/23/2010 12/06/2012 Overview: 01/23/2010, from Dr. White Routine gynecological examination 01/23/2010 02/22/2014 SACROILIITIS 05/06/2009 01/23/2010 KERATOSIS PILARIS////SKIN ANOMALY NEC 03/26/2007 01/23/2010 FOLLICULITIS///HAIR DISEASES NEC 03/26/2007 01/23/2010 Lichenification and lichen simplex chronicus 01/23/2010 DERMATOFIBROMA///BENIGN KAILEY SKIN ARM 03/26/2007 01/23/2010 Contact dermatitis and other eczema, due to unspecified cause 03/26/2007 01/23/2010 Transient hypertension of , antepartum 06/19/2006 07/02/2006 Supervision of normal first 11/09/2005 07/02/2006 documented as of this encounter (statuses as of 03/01/2023) [facility]11-01-2022 History of Past illness Narrative* Problem Noted Date Resolved Date Chest pain 09/04/2022 09/04/2022 Contusion of knee 09/04/2022 09/04/2022 Fall 09/04/2022 09/04/2022 Headache 09/04/2022 09/04/2022 History of type 2 diabetes mellitus 09/04/2022 09/04/2022 Muscle pain 09/04/2022 09/04/2022 Pain of left scapula 09/04/2022 09/04/2022 Shortness of breath 09/04/2022 09/04/2022 Type 2 diabetes mellitus with hyperglycemia 11/202109/04/2022 Upper respiratory tract infection 09/04/2022 09/04/2022 Viral infection 09/04/2022 09/04/2022 Low back pain, unspecified 04/17/202209/04 Segmental and somatic dysfunction 04/17/2022 09/04/2022 Nausea, vomiting, and diarrhea 11/22/2021 1 11/04/2021 Numbness of upper extremity 10/10/202111/2021 Obesity, Class III, BMI >= 40 11/26/2019 Microalbuminuria 09/30/2018 09/04/2022 Strain of lumbar region 07/02/2017 09/04/20 Routine general medical exam ination at a health care facility 12/06/2012 02/22/2014 Routine general medical exam ination at a health care facility 01/23/2010 12/06/2012 Overview: 01/23/2010, from Dr. White Routine gynecological examination 01/23/2010 02/22/2014 SACROILIITIS 05/06/2009 01/23/2010 KERATOSIS PILARIS////SKIN ANOMALY NEC 03/26/2007 01/23/2010 FOLLICULITIS///HAIR DISEASES NEC 03/26/2007 01/23/2010 Lichenification and lichen simplex chronicus 01/23/2010 DERMATOFIBROMA///BENIGN KAILEY SKIN ARM 03/26/2007 01/23/2010 Contact dermatitis and other eczema, due to unspecified cause 03/26/2007 01/23/2010 Transient hypertension of , antepartum 06/19/2006 07/02/2006 Supervision of normal first 11/09/2005 07/02/2006 documented as of this encounter (statuses as of 03/04/2023) [facility]11-01-2022 History of Past illness Narrative* Problem Noted Date Resolved Date Chest pain 09/04/2022 09/04/2022 Contusion of knee 09/04/2022 09/04/2022 Fall 09/04/2022 09/04/2022 Headache 09/04/2022 09/04/2022 History of type 2 diabetes mellitus 09/04/2022 09/04/2022 Muscle pain 09/04/2022 09/04/2022 Pain of left scapula 09/04/2022 09/04/2022 Shortness of breath 09/04/2022 09/04/2022 Type 2 diabetes mellitus with hyperglycemia 11/202109/04/2022 Upper respiratory tract infection 09/04/2022 09/04/2022 Viral infection 09/04/2022 09/04/2022 Low back pain, unspecified 04/17/202209/04 Segmental and somatic dysfunction 04/17/2022 09/04/2022 Nausea, vomiting, and diarrhea 11/22/2021 1 11/04/2021 Numbness of upper extremity 10/10/202111/2021 Obesity, Class III, BMI >= 40 11/26/2019 Microalbuminuria 09/30/2018 09/04/2022 Strain of lumbar region 07/02/2017 09/04/20 Routine general medical exam ination at a health care facility 12/06/2012 02/22/2014 Routine general medical exam ination at a health care facility 01/23/2010 12/06/2012 Overview: 01/23/2010, from Dr. White Routine gynecological examination 01/23/2010 02/22/2014 SACROILIITIS 05/06/2009 01/23/2010 KERATOSIS PILARIS////SKIN ANOMALY NEC 03/26/2007 01/23/2010 FOLLICULITIS///HAIR DISEASES NEC 03/26/2007 01/23/2010 Lichenification and lichen simplex chronicus 01/23/2010 DERMATOFIBROMA///BENIGN KAILEY SKIN ARM 03/26/2007 01/23/2010 Contact dermatitis and other eczema, due to unspecified cause 03/26/2007 01/23/2010 Transient hypertension of , antepartum 06/19/2006 07/02/2006 Supervision of normal first 11/09/2005 07/02/2006 documented as of this encounter (statuses as of 03/05/2023) [facility]11-01-2022 History of Past illness Narrative* Problem Noted Date Resolved Date Chest pain 09/04/2022 09/04/2022 Contusion of knee 09/04/2022 09/04/2022 Fall 09/04/2022 09/04/2022 Headache 09/04/2022 09/04/2022 History of type 2 diabetes mellitus 09/04/2022 09/04/2022 Muscle pain 09/04/2022 09/04/2022 Pain of left scapula 09/04/2022 09/04/2022 Shortness of breath 09/04/2022 09/04/2022 Type 2 diabetes mellitus with hyperglycemia 11/202109/04/2022 Upper respiratory tract infection 09/04/2022 09/04/2022 Viral infection 09/04/2022 09/04/2022 Low back pain, unspecified 04/17/202209/04 Segmental and somatic dysfunction 04/17/2022 09/04/2022 Nausea, vomiting, and diarrhea 11/22/2021 1 11/04/2021 Numbness of upper extremity 10/10/202111/2021 Obesity, Class III, BMI >= 40 11/26/2019 Microalbuminuria 09/30/2018 09/04/2022 Strain of lumbar region 07/02/2017 09/04/20 Routine general medical exam ination at a health care facility 12/06/2012 02/22/2014 Routine general medical exam ination at a health care facility 01/23/2010 12/06/2012 Overview: 01/23/2010, from Dr. White Routine gynecological examination 01/23/2010 02/22/2014 SACROILIITIS 05/06/2009 01/23/2010 KERATOSIS PILARIS////SKIN ANOMALY NEC 03/26/2007 01/23/2010 FOLLICULITIS///HAIR DISEASES NEC 03/26/2007 01/23/2010 Lichenification and lichen simplex chronicus 01/23/2010 DERMATOFIBROMA///BENIGN KAILEY SKIN ARM 03/26/2007 01/23/2010 Contact dermatitis and other eczema, due to unspecified cause 03/26/2007 01/23/2010 Transient hypertension of , antepartum 06/19/2006 07/02/2006 Supervision of normal first 11/09/2005 07/02/2006 documented as of this encounter (statuses as of 03/05/2023) [facility]11-01-2022 History of Past illness Narrative* Problem Noted Date Resolved Date Chest pain 09/04/2022 09/04/2022 Contusion of knee 09/04/2022 09/04/2022 Fall 09/04/2022 09/04/2022 Headache 09/04/2022 09/04/2022 History of type 2 diabetes mellitus 09/04/2022 09/04/2022 Muscle pain 09/04/2022 09/04/2022 Pain of left scapula 09/04/2022 09/04/2022 Shortness of breath 09/04/2022 09/04/2022 Type 2 diabetes mellitus with hyperglycemia 11/202109/04/2022 Upper respiratory tract infection 09/04/2022 09/04/2022 Viral infection 09/04/2022 09/04/2022 Low back pain, unspecified 04/17/202209/04 Segmental and somatic dysfunction 04/17/2022 09/04/2022 Nausea, vomiting, and diarrhea 11/22/2021 1 11/04/2021 Numbness of upper extremity 10/10/202111/2021 Obesity, Class III, BMI >= 40 11/26/2019 Microalbuminuria 09/30/2018 09/04/2022 Strain of lumbar region 07/02/2017 09/04/20 Routine general medical exam ination at a health care facility 12/06/2012 02/22/2014 Routine general medical exam ination at a health care facility 01/23/2010 12/06/2012 Overview: 01/23/2010, from Dr. White Routine gynecological examination 01/23/2010 02/22/2014 SACROILIITIS 05/06/2009 01/23/2010 KERATOSIS PILARIS////SKIN ANOMALY NEC 03/26/2007 01/23/2010 FOLLICULITIS///HAIR DISEASES NEC 03/26/2007 01/23/2010 Lichenification and lichen simplex chronicus 01/23/2010 DERMATOFIBROMA///BENIGN KAILEY SKIN ARM 03/26/2007 01/23/2010 Contact dermatitis and other eczema, due to unspecified cause 03/26/2007 01/23/2010 Transient hypertension of , antepartum 06/19/2006 07/02/2006 Supervision of normal first 11/09/2005 07/02/2006 documented as of this encounter (statuses as of 03/05/2023) [facility]11-01-2022 History of Past illness Narrative* Problem Noted Date Resolved Date Chest pain 09/04/2022 09/04/2022 Contusion of knee 09/04/2022 09/04/2022 Fall 09/04/2022 09/04/2022 Headache 09/04/2022 09/04/2022 History of type 2 diabetes mellitus 09/04/2022 09/04/2022 Muscle pain 09/04/2022 09/04/2022 Pain of left scapula 09/04/2022 09/04/2022 Shortness of breath 09/04/2022 09/04/2022 Type 2 diabetes mellitus with hyperglycemia 11/202109/04/2022 Upper respiratory tract infection 09/04/2022 09/04/2022 Viral infection 09/04/2022 09/04/2022 Low back pain, unspecified 04/17/202209/04 Segmental and somatic dysfunction 04/17/2022 09/04/2022 Nausea, vomiting, and diarrhea 11/22/2021 1 11/04/2021 Numbness of upper extremity 10/10/202111/2021 Obesity, Class III, BMI >= 40 11/26/2019 Microalbuminuria 09/30/2018 09/04/2022 Strain of lumbar region 07/02/2017 09/04/20 Routine general medical exam ination at a health care facility 12/06/2012 02/22/2014 Routine general medical exam ination at a health care facility 01/23/2010 12/06/2012 Overview: 01/23/2010, from Dr. White Routine gynecological examination 01/23/2010 02/22/2014 SACROILIITIS 05/06/2009 01/23/2010 KERATOSIS PILARIS////SKIN ANOMALY NEC 03/26/2007 01/23/2010 FOLLICULITIS///HAIR DISEASES NEC 03/26/2007 01/23/2010 Lichenification and lichen simplex chronicus 01/23/2010 DERMATOFIBROMA///BENIGN KAILEY SKIN ARM 03/26/2007 01/23/2010 Contact dermatitis and other eczema, due to unspecified cause 03/26/2007 01/23/2010 Transient hypertension of , antepartum 06/19/2006 07/02/2006 Supervision of normal first 11/09/2005 07/02/2006 documented as of this encounter (statuses as of 03/13/2023) [facility]-01-[facility] History of Past illness Narrative* Problem Noted Date Resolved Date Chest pain 09/04/2022 09/04/2022 Contusion of knee 09/04/2022 09/04/2022 Fall 09/04/2022 09/04/2022 Headache 09/04/2022 09/04/2022 History of type 2 diabetes mellitus 09/04/2022 09/04/2022 Muscle pain 09/04/2022 09/04/2022 Pain of left scapula 09/04/2022 09/04/2022 Shortness of breath 09/04/2022 09/04/2022 Type 2 diabetes mellitus with hyperglycemia 11/202109/04/2022 Upper respiratory tract infection 09/04/2022 09/04/2022 Viral infection 09/04/2022 09/04/2022 Low back pain, unspecified 04/17/202209/04 Segmental and somatic dysfunction 04/17/2022 09/04/2022 Nausea, vomiting, and diarrhea 11/22/2021 1 11/04/2021 Numbness of upper extremity 10/10/202111/2021 Obesity, Class III, BMI >= 40 11/26/2019 Microalbuminuria 09/30/2018 09/04/2022 Strain of lumbar region 07/02/2017 09/04/20 Routine general medical exam ination at a health care facility 12/06/2012 02/22/2014 Routine general medical exam ination at a health care facility 01/23/2010 12/06/2012 Overview: 01/23/2010, from Dr. White Routine gynecological examination 01/23/2010 02/22/2014 SACROILIITIS 05/06/2009 01/23/2010 KERATOSIS PILARIS////SKIN ANOMALY NEC 03/26/2007 01/23/2010 FOLLICULITIS///HAIR DISEASES NEC 03/26/2007 01/23/2010 Lichenification and lichen simplex chronicus 01/23/2010 DERMATOFIBROMA///BENIGN KAILEY SKIN ARM 03/26/2007 01/23/2010 Contact dermatitis and other eczema, due to unspecified cause 03/26/2007 01/23/2010 Transient hypertension of , antepartum 06/19/2006 07/02/2006 Supervision of normal first 11/09/2005 07/02/2006 documented as of this encounter (statuses as of 03/20/2023) [facility] History of Past illness Narrative* Problem Noted Date Resolved Date Chest pain 09/04/2022 09/04/2022 Contusion of knee 09/04/2022 09/04/2022 Fall 09/04/2022 09/04/2022 Headache 09/04/2022 09/04/2022 History of type 2 diabetes mellitus 09/04/2022 09/04/2022 Muscle pain 09/04/2022 09/04/2022 Pain of left scapula 09/04/2022 09/04/2022 Shortness of breath 09/04/2022 09/04/2022 Type 2 diabetes mellitus with hyperglycemia 11/202109/04/2022 Upper respiratory tract infection 09/04/2022 09/04/2022 Viral infection 09/04/2022 09/04/2022 Low back pain, unspecified 04/17/202209/04 Segmental and somatic dysfunction 04/17/2022 09/04/2022 Nausea, vomiting, and diarrhea 11/22/2021 1 11/04/2021 Numbness of upper extremity 10/10/202111/2021 Obesity, Class III, BMI >= 40 11/26/2019 Microalbuminuria 09/30/2018 09/04/2022 Strain of lumbar region 07/02/2017 09/04/20 Routine general medical exam ination at a health care facility 12/06/2012 02/22/2014 Routine general medical exam ination at a health care facility 01/23/2010 12/06/2012 Overview: 01/23/2010, from Dr. White Routine gynecological examination 01/23/2010 02/22/2014 SACROILIITIS 05/06/2009 01/23/2010 KERATOSIS PILARIS////SKIN ANOMALY NEC 03/26/2007 01/23/2010 FOLLICULITIS///HAIR DISEASES NEC 03/26/2007 01/23/2010 Lichenification and lichen simplex chronicus 01/23/2010 DERMATOFIBROMA///BENIGN KAILEY SKIN ARM 03/26/2007 01/23/2010 Contact dermatitis and other eczema, due to unspecified cause 03/26/2007 01/23/2010 Transient hypertension of , antepartum 06/19/2006 07/02/2006 Supervision of normal first 11/09/2005 07/02/2006 documented as of this encounter (statuses as of 03/20/2023) [facility] History of Past illness Narrative* Problem Noted Date Resolved Date Chest pain 09/04/2022 09/04/2022 Contusion of knee 09/04/2022 09/04/2022 Fall 09/04/2022 09/04/2022 Headache 09/04/2022 09/04/2022 History of type 2 diabetes mellitus 09/04/2022 09/04/2022 Muscle pain 09/04/2022 09/04/2022 Pain of left scapula 09/04/2022 09/04/2022 Shortness of breath 09/04/2022 09/04/2022 Type 2 diabetes mellitus with hyperglycemia 11/202109/04/2022 Upper respiratory tract infection 09/04/2022 09/04/2022 Viral infection 09/04/2022 09/04/2022 Low back pain, unspecified 04/17/202209/04 Segmental and somatic dysfunction 04/17/2022 09/04/2022 Nausea, vomiting, and diarrhea 11/22/2021 1 11/04/2021 Numbness of upper extremity 10/10/202111/2021 Obesity, Class III, BMI >= 40 11/26/2019 Microalbuminuria 09/30/2018 09/04/2022 Strain of lumbar region 07/02/2017 09/04/20 Routine general medical exam ination at a health care facility 12/06/2012 02/22/2014 Routine general medical exam ination at a health care facility 01/23/2010 12/06/2012 Overview: 01/23/2010, from Dr. White Routine gynecological examination 01/23/2010 02/22/2014 SACROILIITIS 05/06/2009 01/23/2010 KERATOSIS PILARIS////SKIN ANOMALY NEC 03/26/2007 01/23/2010 FOLLICULITIS///HAIR DISEASES NEC 03/26/2007 01/23/2010 Lichenification and lichen simplex chronicus 01/23/2010 DERMATOFIBROMA///BENIGN KAILEY SKIN ARM 03/26/2007 01/23/2010 Contact dermatitis and other eczema, due to unspecified cause 03/26/2007 01/23/2010 Transient hypertension of , antepartum 06/19/2006 07/02/2006 Supervision of normal first 11/09/2005 07/02/2006 documented as of this encounter (statuses as of 04/05/2023) [facility] History of Past illness Narrative* Problem Noted Date Resolved Date Chest pain 09/04/2022 09/04/2022 Contusion of knee 09/04/2022 09/04/2022 Fall 09/04/2022 09/04/2022 Headache 09/04/2022 09/04/2022 History of type 2 diabetes mellitus 09/04/2022 09/04/2022 Muscle pain 09/04/2022 09/04/2022 Pain of left scapula 09/04/2022 09/04/2022 Shortness of breath 09/04/2022 09/04/2022 Type 2 diabetes mellitus with hyperglycemia 11/202109/04/2022 Upper respiratory tract infection 09/04/2022 09/04/2022 Viral infection 09/04/2022 09/04/2022 Low back pain, unspecified 04/17/202209/04 Segmental and somatic dysfunction 04/17/2022 09/04/2022 Nausea, vomiting, and diarrhea 11/22/2021 1 11/04/2021 Numbness of upper extremity 10/10/202111/2021 Obesity, Class III, BMI >= 40 11/26/2019 Microalbuminuria 09/30/2018 09/04/2022 Strain of lumbar region 07/02/2017 09/04/20 Routine general medical exam ination at a health care facility 12/06/2012 02/22/2014 Routine general medical exam ination at a health care facility 01/23/2010 12/06/2012 Overview: 01/23/2010, from Dr. White Routine gynecological examination 01/23/2010 02/22/2014 SACROILIITIS 05/06/2009 01/23/2010 KERATOSIS PILARIS////SKIN ANOMALY NEC 03/26/2007 01/23/2010 FOLLICULITIS///HAIR DISEASES NEC 03/26/2007 01/23/2010 Lichenification and lichen simplex chronicus 01/23/2010 DERMATOFIBROMA///BENIGN KAILEY SKIN ARM 03/26/2007 01/23/2010 Contact dermatitis and other eczema, due to unspecified cause 03/26/2007 01/23/2010 Transient hypertension of , antepartum 06/19/2006 07/02/2006 Supervision of normal first 11/09/2005 07/02/2006 documented as of this encounter (statuses as of 05/08/2023) [facility] History of Past illness Narrative* Problem Noted Date Diagnosed Date Resolved Date Chest pain 09/04/2022 09/04/2022 Contusion of knee 09/04/2022 09/04/2022 Fall 09/04/2022 09/04/2022 Headache 09/04/2022 09/04/2022 History of type 2 diabetes mellitus 09/04/2022 09/04/2022 Muscle pain 09/04/2022 09/04/2022 Pain of left scapula 09/04/2022 022 Shortness of breath 09/04/2022 09/04/20 Type 2 diabetes mellitus with hyperglycemia 09/04/2022 09/04/2022 Upper respiratory tract infection 09/04/2022 09/04/2022 Viral infection 09/04/2022 09/04/2022 Low back pain, unspecified 04/17/2022 1 11/04/2021 Segmental and somatic dysfunction 04/17/2022 09/04/2022 Nausea, vomiting, and diarrhea 11/22/2021 09/04/2022 Numbness of upper extremity 10/10/2021 09/04/2022 Obesity, Class III, BMI >= 40 11/26/2019 09/04/2022 Microalbuminuria 09/30/2018 09/04/2022 Strain of lumbar region 07/02/2017 11/11/2021 Routine general medical exam ination at a health care facility 12/06/2012 02/22/2014 Routine general medical exam ination at a health care facility 01/23/2010 12/06/2012 Overview: 01/23/2010, from Dr. White Routine gynecological examination 01/23/2010 02/22/2014 SACROILIITIS 05/06/2009 01/23/2010 KERATOSIS PILARIS////SKIN ANOMALY NEC 03/26/2007 01/23/2010 FOLLICULITIS///HAIR DISEASES NEC 03/26/2007 01/23/2010 Lichenification and lichen simplex chronicus 7 01/23/2010 DERMATOFIBROMA///BENIGN KAILEY SKIN ARM 03/26/2007 01/23/2010 Contact dermatitis and other eczema, due to unspecified cause 03/26/2007 01/23/2010 Transient hypertension of pr egnancy, antepartum 06/19/2006 07/02/2006 Supervision of normal first 11/09/2005 07/02/2006 documented as of this encounter (statuses as of 05/17/2023) [facility] History of Past illness Narrative* Problem Noted Date Diagnosed Date Resolved Date Chest pain 09/04/2022 09/04/2022 Contusion of knee 09/04/2022 09/04/2022 Fall 09/04/2022 09/04/2022 Headache 09/04/2022 09/04/2022 History of type 2 diabetes mellitus 09/04/2022 09/04/2022 Muscle pain 09/04/2022 09/04/2022 Pain of left scapula 09/04/2022 022 Shortness of breath 09/04/2022 09/04/20 Type 2 diabetes mellitus with hyperglycemia 09/04/2022 09/04/2022 Upper respiratory tract infection 09/04/2022 09/04/2022 Viral infection 09/04/2022 09/04/2022 Low back pain, unspecified 04/17/2022 1 11/04/2021 Segmental and somatic dysfunction 04/17/2022 09/04/2022 Nausea, vomiting, and diarrhea 11/22/2021 09/04/2022 Numbness of upper extremity 10/10/2021 09/04/2022 Obesity, Class III, BMI >= 40 11/26/2019 09/04/2022 Microalbuminuria 09/30/2018 09/04/2022 Strain of lumbar region 07/02/201711/2021 Routine general medical exam ination at a health care facility 12/06/2012 02/22/2014 Routine general medical exam ination at a health care facility 01/23/2010 12/06/2012 Overview: 01/23/2010, from Dr. White Routine gynecological examination 01/23/2010 02/22/2014 SACROILIITIS 05/06/2009 01/23/2010 KERATOSIS PILARIS////SKIN ANOMALY NEC 03/26/2007 01/23/2010 FOLLICULITIS///HAIR DISEASES NEC 03/26/2007 01/23/2010 Lichenification and lichen simplex chronicus 7 01/23/2010 DERMATOFIBROMA///BENIGN KAILEY SKIN ARM 03/26/2007 01/23/2010 Contact dermatitis and other eczema, due to unspecified cause 03/26/2007 01/23/2010 Transient hypertension of pr egnancy, antepartum 06/19/2006 07/02/2006 Supervision of normal first 11/09/2005 07/02/2006 documented as of this encounter (statuses as of 05/29/2023) [facility]11-01-2022 History of Past illness Narrative* Problem Noted Date Diagnosed Date Resolved Date Chest pain 09/04/2022 09/04/2022 Contusion of knee 09/04/2022 09/04/2022 Fall 09/04/2022 09/04/2022 Headache 09/04/2022 09/04/2022 History of type 2 diabetes mellitus 09/04/2022 09/04/2022 Muscle pain 09/04/2022 09/04/2022 Pain of left scapula 09/04/2022 022 Shortness of breath 09/04/2022 09/04/20 Type 2 diabetes mellitus with hyperglycemia 09/04/2022 09/04/2022 Upper respiratory tract infection 09/04/2022 09/04/2022 Viral infection 09/04/2022 09/04/2022 Low back pain, unspecified 04/17/2022 1 11/04/2021 Segmental and somatic dysfunction 04/17/2022 09/04/2022 Nausea, vomiting, and diarrhea 11/22/2021 09/04/2022 Numbness of upper extremity 10/10/2021 09/04/2022 Obesity, Class III, BMI >= 40 11/26/2019 09/04/2022 Microalbuminuria 09/30/2018 09/04/2022 Strain of lumbar region 07/02/2017/11/2021 Routine general medical exam ination at a health care facility 12/06/2012 02/22/2014 Routine general medical exam ination at a health care facility 01/23/2010 12/06/2012 Overview: 01/23/2010, from Dr. White Routine gynecological examination 01/23/2010 02/22/2014 SACROILIITIS 05/06/2009 01/23/2010 KERATOSIS PILARIS////SKIN ANOMALY NEC 03/26/2007 01/23/2010 FOLLICULITIS///HAIR DISEASES NEC 03/26/2007 01/23/2010 Lichenification and lichen simplex chronicus 7 01/23/2010 DERMATOFIBROMA///BENIGN KAILEY SKIN ARM 03/26/2007 01/23/2010 Contact dermatitis and other eczema, due to unspecified cause 03/26/2007 01/23/2010 Transient hypertension of pr egnancy, antepartum 06/19/2006 07/02/2006 Supervision of normal first 11/09/2005 07/02/2006 documented as of this encounter (statuses as of 05/30/2023) [facility]11-01-2022 History of Past illness Narrative* Problem Noted Date Diagnosed Date Resolved Date Chest pain 09/04/2022 09/04/2022 Contusion of knee 09/04/2022 09/04/2022 Fall 09/04/2022 09/04/2022 Headache 09/04/2022 09/04/2022 History of type 2 diabetes mellitus 09/04/2022 09/04/2022 Muscle pain 09/04/2022 09/04/2022 Pain of left scapula 09/04/2022 022 Shortness of breath 09/04/2022 09/04/20 Type 2 diabetes mellitus with hyperglycemia 09/04/2022 09/04/2022 Upper respiratory tract infection 09/04/2022 09/04/2022 Viral infection 09/04/2022 09/04/2022 Low back pain, unspecified 04/17/2022 1 11/04/2021 Segmental and somatic dysfunction 04/17/2022 09/04/2022 Nausea, vomiting, and diarrhea 11/22/2021 09/04/2022 Numbness of upper extremity 10/10/2021 09/04/2022 Obesity, Class III, BMI >= 40 11/26/2019 09/04/2022 Microalbuminuria 09/30/2018 09/04/2022 Strain of lumbar region 07/02/201711/2021 Routine general medical exam ination at a health care facility 12/06/2012 02/22/2014 Routine general medical exam ination at a health care facility 01/23/2010 12/06/2012 Overview: 01/23/2010, from Dr. White Routine gynecological examination 01/23/2010 02/22/2014 SACROILIITIS 05/06/2009 01/23/2010 KERATOSIS PILARIS////SKIN ANOMALY NEC 03/26/2007 01/23/2010 FOLLICULITIS///HAIR DISEASES NEC 03/26/2007 01/23/2010 Lichenification and lichen simplex chronicus 7 01/23/2010 DERMATOFIBROMA///BENIGN KAILEY SKIN ARM 03/26/2007 01/23/2010 Contact dermatitis and other eczema, due to unspecified cause 03/26/2007 01/23/2010 Transient hypertension of pr egnancy, antepartum 06/19/2006 07/02/2006 Supervision of normal first 11/09/2005 07/02/2006 documented as of this encounter (statuses as of 06/06/2023) [facility]11-01-2022 History of Past illness Narrative* Problem Noted Date Diagnosed Date Resolved Date Chest pain 09/04/2022 09/04/2022 Contusion of knee 09/04/2022 09/04/2022 Fall 09/04/2022 09/04/2022 Headache 09/04/2022 09/04/2022 History of type 2 diabetes mellitus 09/04/2022 09/04/2022 Muscle pain 09/04/2022 09/04/2022 Pain of left scapula 09/04/2022 022 Shortness of breath 09/04/2022 09/04/20 Type 2 diabetes mellitus with hyperglycemia 09/04/2022 09/04/2022 Upper respiratory tract infection 09/04/2022 09/04/2022 Viral infection 09/04/2022 09/04/2022 Low back pain, unspecified 04/17/2022 1 11/04/2021 Segmental and somatic dysfunction 04/17/2022 09/04/2022 Nausea, vomiting, and diarrhea 11/22/2021 09/04/2022 Numbness of upper extremity 10/10/2021 09/04/2022 Obesity, Class III, BMI >= 40 11/26/2019 09/04/2022 Microalbuminuria 09/30/2018 09/04/2022 Strain of lumbar region 07/02/2017 11/0 11/2021 Routine general medical exam ination at a health care facility 12/06/2012 02/22/2014 Routine general medical exam ination at a health care facility 01/23/2010 12/06/2012 Overview: 01/23/2010, from Dr. White Routine gynecological examination 01/23/2010 02/22/2014 SACROILIITIS 05/06/2009 01/23/2010 KERATOSIS PILARIS////SKIN ANOMALY NEC 03/26/2007 01/23/2010 FOLLICULITIS///HAIR DISEASES NEC 03/26/2007 01/23/2010 Lichenification and lichen simplex chronicus 7 01/23/2010 DERMATOFIBROMA///BENIGN KAILEY SKIN ARM 03/26/2007 01/23/2010 Contact dermatitis and other eczema, due to unspecified cause 03/26/2007 01/23/2010 Transient hypertension of pr egnancy, antepartum 06/19/2006 07/02/2006 Supervision of normal first 11/09/2005 07/02/2006 documented as of this encounter (statuses as of 06/08/2023) [facility]11-01-2022 History of Past illness Narrative* Problem Noted Date Diagnosed Date Resolved Date Chest pain 09/04/2022 09/04/2022 Contusion of knee 09/04/2022 09/04/2022 Fall 09/04/2022 09/04/2022 Headache 09/04/2022 09/04/2022 History of type 2 diabetes mellitus 09/04/2022 09/04/2022 Muscle pain 09/04/2022 09/04/2022 Pain of left scapula 09/04/2022 022 Shortness of breath 09/04/2022 09/04/20 Type 2 diabetes mellitus with hyperglycemia 09/04/2022 09/04/2022 Upper respiratory tract infection 09/04/2022 09/04/2022 Viral infection 09/04/2022 09/04/2022 Low back pain, unspecified 04/17/2022 1 11/04/2021 Segmental and somatic dysfunction 04/17/2022 09/04/2022 Nausea, vomiting, and diarrhea 11/22/2021 09/04/2022 Numbness of upper extremity 10/10/2021 09/04/2022 Obesity, Class III, BMI >= 40 11/26/2019 09/04/2022 Microalbuminuria 09/30/2018 09/04/2022 Strain of lumbar region 07/02/2017 11/0 11/2021 Routine general medical exam ination at a health care facility 12/06/2012 02/22/2014 Routine general medical exam ination at a health care facility 01/23/2010 12/06/2012 Overview: 01/23/2010, from Dr. White Routine gynecological examination 01/23/2010 02/22/2014 SACROILIITIS 05/06/2009 01/23/2010 KERATOSIS PILARIS////SKIN ANOMALY NEC 03/26/2007 01/23/2010 FOLLICULITIS///HAIR DISEASES NEC 03/26/2007 01/23/2010 Lichenification and lichen simplex chronicus 7 01/23/2010 DERMATOFIBROMA///BENIGN KAILEY SKIN ARM 03/26/2007 01/23/2010 Contact dermatitis and other eczema, due to unspecified cause 03/26/2007 01/23/2010 Transient hypertension of pr egnancy, antepartum 06/19/2006 07/02/2006 Supervision of normal first 11/09/2005 07/02/2006 documented as of this encounter (statuses as of 06/10/2023) [facility]11-01-2022 History of Past illness Narrative* Problem Noted Date Diagnosed Date Resolved Date Chest pain 09/04/2022 09/04/2022 Contusion of knee 09/04/2022 09/04/2022 Fall 09/04/2022 09/04/2022 Headache 09/04/2022 09/04/2022 History of type 2 diabetes mellitus 09/04/2022 09/04/2022 Muscle pain 09/04/2022 09/04/2022 Pain of left scapula 09/04/2022 022 Shortness of breath 09/04/2022 09/04/20 Type 2 diabetes mellitus with hyperglycemia 09/04/2022 09/04/2022 Upper respiratory tract infection 09/04/2022 09/04/2022 Viral infection 09/04/2022 09/04/2022 Low back pain, unspecified 04/17/2022 1 11/04/2021 Segmental and somatic dysfunction 04/17/2022 09/04/2022 Nausea, vomiting, and diarrhea 11/22/2021 09/04/2022 Numbness of upper extremity 10/10/2021 09/04/2022 Obesity, Class III, BMI >= 40 11/26/2019 09/04/2022 Microalbuminuria 09/30/2018 09/04/2022 Strain of lumbar region 07/02/2017 11/0 11/2021 Routine general medical exam ination at a health care facility 12/06/2012 02/22/2014 Routine general medical exam ination at a health care facility 01/23/2010 12/06/2012 Overview: 01/23/2010, from Dr. White Routine gynecological examination 01/23/2010 02/22/2014 SACROILIITIS 05/06/2009 01/23/2010 KERATOSIS PILARIS////SKIN ANOMALY NEC 03/26/2007 01/23/2010 FOLLICULITIS///HAIR DISEASES NEC 03/26/2007 01/23/2010 Lichenification and lichen simplex chronicus 7 01/23/2010 DERMATOFIBROMA///BENIGN KAILEY SKIN ARM 03/26/2007 01/23/2010 Contact dermatitis and other eczema, due to unspecified cause 03/26/2007 01/23/2010 Transient hypertension of pr egnancy, antepartum 06/19/2006 07/02/2006 Supervision of normal first 11/09/2005 07/02/2006 documented as of this encounter (statuses as of 06/22/2023) [facility]11-01-2022 History of Past illness Narrative* Problem Noted Date Diagnosed Date Resolved Date Chest pain 09/04/2022 09/04/2022 Contusion of knee 09/04/2022 09/04/2022 Fall 09/04/2022 09/04/2022 Headache 09/04/2022 09/04/2022 History of type 2 diabetes mellitus 09/04/2022 09/04/2022 Muscle pain 09/04/2022 09/04/2022 Pain of left scapula 09/04/2022 022 Shortness of breath 09/04/2022 09/04/20 Type 2 diabetes mellitus with hyperglycemia 09/04/2022 09/04/2022 Upper respiratory tract infection 09/04/2022 09/04/2022 Viral infection 09/04/2022 09/04/2022 Low back pain, unspecified 04/17/2022 1 11/04/2021 Segmental and somatic dysfunction 04/17/2022 09/04/2022 Nausea, vomiting, and diarrhea 11/22/2021 09/04/2022 Numbness of upper extremity 10/10/2021 09/04/2022 Obesity, Class III, BMI >= 40 11/26/2019 09/04/2022 Microalbuminuria 09/30/2018 09/04/2022 Strain of lumbar region 07/02/2017 11/11/2021 Routine general medical exam ination at a health care facility 12/06/2012 02/22/2014 Routine general medical exam ination at a health care facility 01/23/2010 12/06/2012 Overview: 01/23/2010, from Dr. White Routine gynecological examination 01/23/2010 02/22/2014 SACROILIITIS 05/06/2009 01/23/2010 KERATOSIS PILARIS////SKIN ANOMALY NEC 03/26/2007 01/23/2010 FOLLICULITIS///HAIR DISEASES NEC 03/26/2007 01/23/2010 Lichenification and lichen simplex chronicus 7 01/23/2010 DERMATOFIBROMA///BENIGN KAILEY SKIN ARM 03/26/2007 01/23/2010 Contact dermatitis and other eczema, due to unspecified cause 03/26/2007 01/23/2010 Transient hypertension of pr egnancy, antepartum 06/19/2006 07/02/2006 Supervision of normal first 11/09/2005 07/02/2006 documented as of this encounter (statuses as of 07/05/2023) [facility]11-01-2022 History of Past illness Narrative* Problem Noted Date Diagnosed Date Resolved Date Chest pain 09/04/2022 09/04/2022 Contusion of knee 09/04/2022 09/04/2022 Fall 09/04/2022 09/04/2022 Headache 09/04/2022 09/04/2022 History of type 2 diabetes mellitus 09/04/2022 09/04/2022 Muscle pain 09/04/2022 09/04/2022 Pain of left scapula 09/04/2022 022 Shortness of breath 09/04/2022 09/04/20 Type 2 diabetes mellitus with hyperglycemia 09/04/2022 09/04/2022 Upper respiratory tract infection 09/04/2022 09/04/2022 Viral infection 09/04/2022 09/04/2022 Low back pain, unspecified 04/17/2022 1 11/04/2021 Segmental and somatic dysfunction 04/17/2022 09/04/2022 Nausea, vomiting, and diarrhea 11/22/2021 09/04/2022 Numbness of upper extremity 10/10/2021 09/04/2022 Obesity, Class III, BMI >= 40 11/26/2019 09/04/2022 Microalbuminuria 09/30/2018 09/04/2022 Strain of lumbar region 07/02/201711/2021 Routine general medical exam ination at a health care facility 12/06/2012 02/22/2014 Routine general medical exam ination at a health care facility 01/23/2010 12/06/2012 Overview: 01/23/2010, from Dr. White Routine gynecological examination 01/23/2010 02/22/2014 SACROILIITIS 05/06/2009 01/23/2010 KERATOSIS PILARIS////SKIN ANOMALY NEC 03/26/2007 01/23/2010 FOLLICULITIS///HAIR DISEASES NEC 03/26/2007 01/23/2010 Lichenification and lichen simplex chronicus 7 01/23/2010 DERMATOFIBROMA///BENIGN KAILEY SKIN ARM 03/26/2007 01/23/2010 Contact dermatitis and other eczema, due to unspecified cause 03/26/2007 01/23/2010 Transient hypertension of pr egnancy, antepartum 06/19/2006 07/02/2006 Supervision of normal first 11/09/2005 07/02/2006 documented as of this encounter (statuses as of 07/09/2023) [facility]11-01-2022 History of Past illness Narrative* Problem Noted Date Diagnosed Date Resolved Date Chest pain 09/04/2022 09/04/2022 Contusion of knee 09/04/2022 09/04/2022 Fall 09/04/2022 09/04/2022 Headache 09/04/2022 09/04/2022 History of type 2 diabetes mellitus 09/04/2022 09/04/2022 Muscle pain 09/04/2022 09/04/2022 Pain of left scapula 09/04/2022 022 Shortness of breath 09/04/2022 09/04/20 Type 2 diabetes mellitus with hyperglycemia 09/04/2022 09/04/2022 Upper respiratory tract infection 09/04/2022 09/04/2022 Viral infection 09/04/2022 09/04/2022 Low back pain, unspecified 04/17/2022 1 11/04/2021 Segmental and somatic dysfunction 04/17/2022 09/04/2022 Nausea, vomiting, and diarrhea 11/22/2021 09/04/2022 Numbness of upper extremity 10/10/2021 09/04/2022 Obesity, Class III, BMI >= 40 11/26/2019 09/04/2022 Microalbuminuria 09/30/2018 09/04/2022 Strain of lumbar region 07/02/201711/2021 Routine general medical exam ination at a health care facility 12/06/2012 02/22/2014 Routine general medical exam ination at a health care facility 01/23/2010 12/06/2012 Overview: 01/23/2010, from Dr. White Routine gynecological examination 01/23/2010 02/22/2014 SACROILIITIS 05/06/2009 01/23/2010 KERATOSIS PILARIS////SKIN ANOMALY NEC 03/26/2007 01/23/2010 FOLLICULITIS///HAIR DISEASES NEC 03/26/2007 01/23/2010 Lichenification and lichen simplex chronicus 7 01/23/2010 DERMATOFIBROMA///BENIGN KAILEY SKIN ARM 03/26/2007 01/23/2010 Contact dermatitis and other eczema, due to unspecified cause 03/26/2007 01/23/2010 Transient hypertension of pr egnancy, antepartum 06/19/2006 07/02/2006 Supervision of normal first 11/09/2005 07/02/2006 documented as of this encounter (statuses as of 08/23/2023) [facility]-01-[facility] History of Past illness Narrative* Problem Noted Date Diagnosed Date Resolved Date Chest pain 09/04/2022 09/04/2022 Contusion of knee 09/04/2022 09/04/2022 Fall 09/04/2022 09/04/2022 Headache 09/04/2022 09/04/2022 History of type 2 diabetes mellitus 09/04/2022 09/04/2022 Muscle pain 09/04/2022 09/04/2022 Pain of left scapula 09/04/2022 022 Shortness of breath 09/04/2022 09/04/20 Type 2 diabetes mellitus with hyperglycemia 09/04/2022 09/04/2022 Upper respiratory tract infection 09/04/2022 09/04/2022 Viral infection 09/04/2022 09/04/2022 Low back pain, unspecified 04/17/2022 1 11/04/2021 Segmental and somatic dysfunction 04/17/2022 09/04/2022 Nausea, vomiting, and diarrhea 11/22/2021 09/04/2022 Numbness of upper extremity 10/10/2021 09/04/2022 Obesity, Class III, BMI >= 40 11/26/2019 09/04/2022 Microalbuminuria 09/30/2018 09/04/2022 Strain of lumbar region 07/02/201711/2021 Routine general medical exam ination at a health care facility 12/06/2012 02/22/2014 Routine general medical exam ination at a health care facility 01/23/2010 12/06/2012 Overview: 01/23/2010, from Dr. White Routine gynecological examination 01/23/2010 02/22/2014 SACROILIITIS 05/06/2009 01/23/2010 KERATOSIS PILARIS////SKIN ANOMALY NEC 03/26/2007 01/23/2010 FOLLICULITIS///HAIR DISEASES NEC 03/26/2007 01/23/2010 Lichenification and lichen simplex chronicus 7 01/23/2010 DERMATOFIBROMA///BENIGN KAILEY SKIN ARM 03/26/2007 01/23/2010 Contact dermatitis and other eczema, due to unspecified cause 03/26/2007 01/23/2010 Transient hypertension of pr egnancy, antepartum 06/19/2006 07/02/2006 Supervision of normal first 11/09/2005 07/02/2006 documented as of this encounter (statuses as of 08/26/2023) [facility] History of Past illness Narrative* Problem Noted Date Diagnosed Date Resolved Date Chest pain 09/04/2022 09/04/2022 Contusion of knee 09/04/2022 09/04/2022 Fall 09/04/2022 09/04/2022 Headache 09/04/2022 09/04/2022 History of type 2 diabetes mellitus 09/04/2022 09/04/2022 Muscle pain 09/04/2022 09/04/2022 Pain of left scapula 09/04/2022 022 Shortness of breath 09/04/2022 09/04/20 Type 2 diabetes mellitus with hyperglycemia 09/04/2022 09/04/2022 Upper respiratory tract infection 09/04/2022 09/04/2022 Viral infection 09/04/2022 09/04/2022 Low back pain, unspecified 04/17/2022 1 11/04/2021 Segmental and somatic dysfunction 04/17/2022 09/04/2022 Nausea, vomiting, and diarrhea 11/22/2021 09/04/2022 Numbness of upper extremity 10/10/2021 09/04/2022 Obesity, Class III, BMI >= 40 11/26/2019 09/04/2022 Microalbuminuria 09/30/2018 09/04/2022 Strain of lumbar region 07/02/201711/2021 Routine general medical exam ination at a health care facility 12/06/2012 02/22/2014 Routine general medical exam ination at a health care facility 01/23/2010 12/06/2012 Overview: 01/23/2010, from Dr. White Routine gynecological examination 01/23/2010 02/22/2014 SACROILIITIS 05/06/2009 01/23/2010 KERATOSIS PILARIS////SKIN ANOMALY NEC 03/26/2007 01/23/2010 FOLLICULITIS///HAIR DISEASES NEC 03/26/2007 01/23/2010 Lichenification and lichen simplex chronicus 7 01/23/2010 DERMATOFIBROMA///BENIGN KAILEY SKIN ARM 03/26/2007 01/23/2010 Contact dermatitis and other eczema, due to unspecified cause 03/26/2007 01/23/2010 Transient hypertension of pr egnancy, antepartum 06/19/2006 07/02/2006 Supervision of normal first 11/09/2005 07/02/2006 documented as of this encounter (statuses as of 09/08/2023) [facility] History of Past illness Narrative* Problem Noted Date Diagnosed Date Resolved Date Chest pain 09/04/2022 09/04/2022 Contusion of knee 09/04/2022 09/04/2022 Fall 09/04/2022 09/04/2022 Headache 09/04/2022 09/04/2022 History of type 2 diabetes mellitus 09/04/2022 09/04/2022 Muscle pain 09/04/2022 09/04/2022 Pain of left scapula 09/04/2022 022 Shortness of breath 09/04/2022 09/04/20 Type 2 diabetes mellitus with hyperglycemia 09/04/2022 09/04/2022 Upper respiratory tract infection 09/04/2022 09/04/2022 Viral infection 09/04/2022 09/04/2022 Low back pain, unspecified 04/17/2022 1 11/04/2021 Segmental and somatic dysfunction 04/17/2022 09/04/2022 Nausea, vomiting, and diarrhea 11/22/2021 09/04/2022 Numbness of upper extremity 10/10/2021 09/04/2022 Obesity, Class III, BMI >= 40 11/26/2019 09/04/2022 Microalbuminuria 09/30/2018 09/04/2022 Strain of lumbar region 07/02/201711/2021 Routine general medical exam ination at a health care facility 12/06/2012 02/22/2014 Routine general medical exam ination at a health care facility 01/23/2010 12/06/2012 Overview: 01/23/2010, from Dr. White Routine gynecological examination 01/23/2010 02/22/2014 SACROILIITIS 05/06/2009 01/23/2010 KERATOSIS PILARIS////SKIN ANOMALY NEC 03/26/2007 01/23/2010 FOLLICULITIS///HAIR DISEASES NEC 03/26/2007 01/23/2010 Lichenification and lichen simplex chronicus 7 01/23/2010 DERMATOFIBROMA///BENIGN KAILEY SKIN ARM 03/26/2007 01/23/2010 Contact dermatitis and other eczema, due to unspecified cause 03/26/2007 01/23/2010 Transient hypertension of pr egnancy, antepartum 06/19/2006 07/02/2006 Supervision of normal first 11/09/2005 07/02/2006 documented as of this encounter (statuses as of 09/10/2023) [facility] History of Past illness Narrative* Problem Noted Date Diagnosed Date Resolved Date Chest pain 09/04/2022 09/04/2022 Contusion of knee 09/04/2022 09/04/2022 Fall 09/04/2022 09/04/2022 Headache 09/04/2022 09/04/2022 History of type 2 diabetes mellitus 09/04/2022 09/04/2022 Muscle pain 09/04/2022 09/04/2022 Pain of left scapula 09/04/2022 022 Shortness of breath 09/04/2022 09/04/20 Type 2 diabetes mellitus with hyperglycemia 09/04/2022 09/04/2022 Upper respiratory tract infection 09/04/2022 09/04/2022 Viral infection 09/04/2022 09/04/2022 Low back pain, unspecified 04/17/2022 1 11/04/2021 Segmental and somatic dysfunction 04/17/2022 09/04/2022 Nausea, vomiting, and diarrhea 11/22/2021 09/04/2022 Numbness of upper extremity 10/10/2021 09/04/2022 Obesity, Class III, BMI >= 40 11/26/2019 09/04/2022 Microalbuminuria 09/30/2018 09/04/2022 Strain of lumbar region 07/02/2017 11/11/2021 Routine general medical exam ination at a health care facility 12/06/2012 02/22/2014 Routine general medical exam ination at a health care facility 01/23/2010 12/06/2012 Overview: 01/23/2010, from Dr. White Routine gynecological examination 01/23/2010 02/22/2014 SACROILIITIS 05/06/2009 01/23/2010 KERATOSIS PILARIS////SKIN ANOMALY NEC 03/26/2007 01/23/2010 FOLLICULITIS///HAIR DISEASES NEC 03/26/2007 01/23/2010 Lichenification and lichen simplex chronicus 7 01/23/2010 DERMATOFIBROMA///BENIGN KAILEY SKIN ARM 03/26/2007 01/23/2010 Contact dermatitis and other eczema, due to unspecified cause 03/26/2007 01/23/2010 Transient hypertension of pr egnancy, antepartum 06/19/2006 07/02/2006 Supervision of normal first 11/09/2005 07/02/2006 documented as of this encounter (statuses as of 09/25/2023) [facility] History of Past illness Narrative* Problem Noted Date Diagnosed Date Resolved Date Chest pain 09/04/2022 09/04/2022 Contusion of knee 09/04/2022 09/04/2022 Fall 09/04/2022 09/04/2022 Headache 09/04/2022 09/04/2022 History of type 2 diabetes mellitus 09/04/2022 09/04/2022 Muscle pain 09/04/2022 09/04/2022 Pain of left scapula 09/04/2022 022 Shortness of breath 09/04/2022 09/04/20 Type 2 diabetes mellitus with hyperglycemia 09/04/2022 09/04/2022 Upper respiratory tract infection 09/04/2022 09/04/2022 Viral infection 09/04/2022 09/04/2022 Low back pain, unspecified 04/17/2022 1 11/04/2021 Segmental and somatic dysfunction 04/17/2022 09/04/2022 Nausea, vomiting, and diarrhea 11/22/2021 09/04/2022 Numbness of upper extremity 10/10/2021 09/04/2022 Obesity, Class III, BMI >= 40 11/26/2019 09/04/2022 Microalbuminuria 09/30/2018 09/04/2022 Strain of lumbar region 07/02/2017 11/0 11/2021 Routine general medical exam ination at a health care facility 12/06/2012 02/22/2014 Routine general medical exam ination at a health care facility 01/23/2010 12/06/2012 Overview: 01/23/2010, from Dr. White Routine gynecological examination 01/23/2010 02/22/2014 SACROILIITIS 05/06/2009 01/23/2010 KERATOSIS PILARIS////SKIN ANOMALY NEC 03/26/2007 01/23/2010 FOLLICULITIS///HAIR DISEASES NEC 03/26/2007 01/23/2010 Lichenification and lichen simplex chronicus 7 01/23/2010 DERMATOFIBROMA///BENIGN KAILEY SKIN ARM 03/26/2007 01/23/2010 Contact dermatitis and other eczema, due to unspecified cause 03/26/2007 01/23/2010 Transient hypertension of pr egnancy, antepartum 06/19/2006 07/02/2006 Supervision of normal first 11/09/2005 07/02/2006 documented as of this encounter (statuses as of 10/14/2023) [facility] History of Past illness Narrative* Problem Noted Date Diagnosed Date Resolved Date Chest pain 09/04/2022 09/04/2022 Contusion of knee 09/04/2022 09/04/2022 Fall 09/04/2022 09/04/2022 Headache 09/04/2022 09/04/2022 History of type 2 diabetes mellitus 09/04/2022 09/04/2022 Muscle pain 09/04/2022 09/04/2022 Pain of left scapula 09/04/2022 022 Shortness of breath 09/04/2022 09/04/20 Type 2 diabetes mellitus with hyperglycemia 09/04/2022 09/04/2022 Upper respiratory tract infection 09/04/2022 09/04/2022 Viral infection 09/04/2022 09/04/2022 Low back pain, unspecified 04/17/2022 1 11/04/2021 Segmental and somatic dysfunction 04/17/2022 09/04/2022 Nausea, vomiting, and diarrhea 11/22/2021 09/04/2022 Numbness of upper extremity 10/10/2021 09/04/2022 Obesity, Class III, BMI >= 40 11/26/2019 09/04/2022 Microalbuminuria 09/30/2018 09/04/2022 Strain of lumbar region 07/02/2017 11/0 11/2021 Routine general medical exam ination at a health care facility 12/06/2012 02/22/2014 Routine general medical exam ination at a health care facility 01/23/2010 12/06/2012 Overview: 01/23/2010, from Dr. White Routine gynecological examination 01/23/2010 02/22/2014 SACROILIITIS 05/06/2009 01/23/2010 KERATOSIS PILARIS////SKIN ANOMALY NEC 03/26/2007 01/23/2010 FOLLICULITIS///HAIR DISEASES NEC 03/26/2007 01/23/2010 Lichenification and lichen simplex chronicus 7 01/23/2010 DERMATOFIBROMA///BENIGN KAILEY SKIN ARM 03/26/2007 01/23/2010 Contact dermatitis and other eczema, due to unspecified cause 03/26/2007 01/23/2010 Transient hypertension of pr egnancy, antepartum 06/19/2006 07/02/2006 Supervision of normal first 11/09/2005 07/02/2006 documented as of this encounter (statuses as of 10/15/2023) [facility] History of Past illness Narrative* Problem Noted Date Diagnosed Date Resolved Date Chest pain 09/04/2022 09/04/2022 Contusion of knee 09/04/2022 09/04/2022 Fall 09/04/2022 09/04/2022 Headache 09/04/2022 09/04/2022 History of type 2 diabetes mellitus 09/04/2022 09/04/2022 Muscle pain 09/04/2022 09/04/2022 Pain of left scapula 09/04/2022 022 Shortness of breath 09/04/2022 09/04/20 Type 2 diabetes mellitus with hyperglycemia 09/04/2022 09/04/2022 Upper respiratory tract infection 09/04/2022 09/04/2022 Viral infection 09/04/2022 09/04/2022 Low back pain, unspecified 04/17/2022 1 11/04/2021 Segmental and somatic dysfunction 04/17/2022 09/04/2022 Nausea, vomiting, and diarrhea 11/22/2021 09/04/2022 Numbness of upper extremity 10/10/2021 09/04/2022 Obesity, Class III, BMI >= 40 11/26/2019 09/04/2022 Microalbuminuria 09/30/2018 09/04/2022 Strain of lumbar region 07/02/2017 11/0 11/2021 Routine general medical exam ination at a health care facility 12/06/2012 02/22/2014 Routine general medical exam ination at a health care facility 01/23/2010 12/06/2012 Overview: 01/23/2010, from Dr. White Routine gynecological examination 01/23/2010 02/22/2014 SACROILIITIS 05/06/2009 01/23/2010 KERATOSIS PILARIS////SKIN ANOMALY NEC 03/26/2007 01/23/2010 FOLLICULITIS///HAIR DISEASES NEC 03/26/2007 01/23/2010 Lichenification and lichen simplex chronicus 7 01/23/2010 DERMATOFIBROMA///BENIGN KAILEY SKIN ARM 03/26/2007 01/23/2010 Contact dermatitis and other eczema, due to unspecified cause 03/26/2007 01/23/2010 Transient hypertension of pr egnancy, antepartum 06/19/2006 07/02/2006 Supervision of normal first 11/09/2005 07/02/2006 documented as of this encounter (statuses as of 10/16/2023) [facility] History of Past illness Narrative* Problem Noted Date Diagnosed Date Resolved Date Chest pain 09/04/2022 09/04/2022 Contusion of knee 09/04/2022 09/04/2022 Fall 09/04/2022 09/04/2022 Headache 09/04/2022 09/04/2022 History of type 2 diabetes mellitus 09/04/2022 09/04/2022 Muscle pain 09/04/2022 09/04/2022 Pain of left scapula 09/04/2022 022 Shortness of breath 09/04/2022 09/04/20 Type 2 diabetes mellitus with hyperglycemia 09/04/2022 09/04/2022 Upper respiratory tract infection 09/04/2022 09/04/2022 Viral infection 09/04/2022 09/04/2022 Low back pain, unspecified 04/17/2022 1 11/04/2021 Segmental and somatic dysfunction 04/17/2022 09/04/2022 Nausea, vomiting, and diarrhea 11/22/2021 09/04/2022 Numbness of upper extremity 10/10/2021 09/04/2022 Obesity, Class III, BMI >= 40 11/26/2019 09/04/2022 Microalbuminuria 09/30/2018 09/04/2022 Strain of lumbar region 07/02/201711/2021 Routine general medical exam ination at a health care facility 12/06/2012 02/22/2014 Routine general medical exam ination at a health care facility 01/23/2010 12/06/2012 Overview: 01/23/2010, from Dr. White Routine gynecological examination 01/23/2010 02/22/2014 SACROILIITIS 05/06/2009 01/23/2010 KERATOSIS PILARIS////SKIN ANOMALY NEC 03/26/2007 01/23/2010 FOLLICULITIS///HAIR DISEASES NEC 03/26/2007 01/23/2010 Lichenification and lichen simplex chronicus 7 01/23/2010 DERMATOFIBROMA///BENIGN KAILEY SKIN ARM 03/26/2007 01/23/2010 Contact dermatitis and other eczema, due to unspecified cause 03/26/2007 01/23/2010 Transient hypertension of pr egnancy, antepartum 06/19/2006 07/02/2006 Supervision of normal first 11/09/2005 07/02/2006 documented as of this encounter (statuses as of 12/06/2023) [facility]-01-[facility] Instructions* Patient Instructions* Ivette Grimes MD - 09/04/2022 12:13 PM EDT Counseling and Psychiatry Services [facility] [address] [place] [address] *counseling [facility] PS[facility]SEL[facility] [address] [facility], [address], [facility] [id number] *counseling [facility] [address] [place] [phone] *counseling [facility] [place] [address] [place] [address] *counseling and psychiatry [address] [address] *counseling [place] [address] [place] [address] *counseling [place] [address] [facility] [phone] *counseling [place] [address] [place] [phone] *[facility]ing [facility] [address] [place], [place] [address] [facility] [address] [facility] [address] [place] [address] *counseling [facility] [place] [address] [place] [address] [employer] [address] [place], [place] [address] *counseling Rosio Chat[facility] [address] [facility] [address] [place] [address] [employer] [address] [place] [place] [address] *counseling [facility] [address] [facility] [place] [address] *counseling [facility] Office [address] [place], [place] [phone] *counseling and psychiatry [facility] [place], [facility] [address] [facility] [address] [place], [place] [phone] *psychiatry [facility] [phone] *grief counseling, individual and groups *If you ever experience a mental health crisis please call [phone], 911, Please verify with insurance provider for coverage Provide services on a sliding fee scale for [facility]. [employer] [facility] [place] [address] *Counseling Counseling [facility] Office [address] [place] [address] *Counseling, Psychiatry and Case Management [place] [address] [place] [address] *Counseling [place] [address] [place] [address] *Counseling [place] [address] [place] [address] *Counseling [place] [address] [place] [address] *Counseling [place] [address] [place] [phone] *Counseling/mental health and substance use treatment [facility] [address] [place] [phone] [place] [address] [place] [phone] [facility] [address] [facility] [place] [phone] *Addiction services, services for victims of domestic violence and sexual assault, housing services [facility] -safe, alcohol and drug free environment [facility] [phone] *free grief services, individual and group *If you ever experience a mental health crisis please contact [phone], 911 or go to the nearest ER. Please verify with insurance provider for coverage [facility] History of Present illness Narrative* Ivette Grimes MD - 09/04/2022 12:00 PM EDT Patient presents with: Fatigue HPI: Patient presents today for office visit for acute visit. Feels like she's never sleeping. Tired all the time. Exhaustion comes out of nowhere. See notes from yesterday. Complains of not feeling well. She had the topamax switched a while back so tried to adjust timing etc. Has noted feeling dizzy and lightheaded at times. Gets flushed at times. Has been going on for four or five weeks. Has occasional nausea or heartburn. Has tested a few times for covid. Negative. Is waiting on a new sleep apnea machine. Waiting on her 5 G machine Is very stressed. Admits to feeling down. Had echo. No new chest pain or shortness of breath. Has had a hx of qt prolongation so ssris etc were held for depression. Was seen by cardiology in [place] who referred her to EPS. Appt is in October. Her headaches have been worse. She is waiting to get botox injections which have just now been approved. Symptoms may be related there headaches per patient. No numbness or weakness that is focal other than her chronic shoulder issues. Her insurance will not approve the nerve ablation. May be getting another nerve block. She is doing physical therapy. Feels a little overwhelmed with everything. Has messages out to several therapists but is waiting to get into one. Will give her our list of available providers. No true vertigo. Has had in the past. Nothing making it worse other than stress. Sugars have been very good. No changes with lightheadedness with changing positions etc. Reviewed most recent echo. Normal EF. Mildly dilated atrium. MEDICATIONS: Current Outpatient Medications Medication Sig gabapentin (NEURONTIN) 100 mg capsule Take 2 capsules by mouth twice daily for 90 days. tiZANidine (ZANAFLEX) 4 mg tablet Take 1 tablet by mouth every 8 hours as needed. rizatriptan (MAXALT) 10 mg tablet Take 1 tablet by mouth as needed (at onset of headache. May repeat after 2 hours.). Do not exceed 30 mg per day. dulaglutide (TRULICITY) 0.75 mg/0.5 mL pen injector Inject 0.75 mg subcutaneously one time a week. Inject dose once per week. Discard Pen After topiramate (TOPAMAX) 100 mg tablet Take 1 tablet by mouth twice daily. albuterol HFA (VENTOLIN HFA) 90 mcg/actuation inhaler Inhale 2 Puffs as instructed every 4 hours asneeded for wheezing/shortness of breath. CPAP Modem possibly not working. Downloads ceased last month. Please check device. fexofenadine (ALMA ALLERGY) 180 mg tablet Take 1 tablet by mouth once daily. omeprazole (PRILOSEC) 20 mg capsule Take 1 capsule by mouth daily before breakfast. 1/2 hr before meal. lisinopril (ZESTRIL, PRINIVIL) 5 mg tablet Take 1 tablet by mouth once daily. levonorgestrel (KYLEENA) 17.5 mcg/24 hrs (5 yrs) 19.5 mg IUD 1 Each by INTRAUTERINE route as directed. CPAP Please fit with a Dreamwear under nose FFM. Patient with sore on bridge of nose and difficulties moving in bed with current PAP mask. Ipratropium [place] (ATROVENT) 0.03 % nasal spray Use 2 Sprays in the nose every 12 hours. metroNIDAZOLE (METROGEL) 0.75 % Topical Gel Apply to affected area twice daily. Herrick-3 Fatty Acids (FISH OIL) 500 mg cap Take 1 capsule by mouth once daily. blood sugar diagnostic (BLOOD GLUCOSE TEST) test strip Test blood sugar(s) 1 times daily. Dx: Type 2 DM - Controlled E11.9 Insulin: Yes Lancets lancets Test blood sugar(s) 1 times daily. Dx: Type 2 DM - Controlled E11.9 Insulin: No Szpkxixl-Ga-Hhe-Fe-FA tab Take 1 tablet by mouth once daily. No current facility-administered medications for this visit. ALLERGIES: ALLERGIES Allergen Reactions Lidocaine Hives Steroids [Betametha* Hives PAST MEDICAL HISTORY Diagnosis Date Acute cholecystitis Cholecystitis Anxiety 06/07/2014 Chronic back pain Kidney stones LETITIA treated with BiPAP Type 2 diabetes mellitus (HCC) PAST SURGICAL HISTORY Procedure Laterality Date DELIVERY ONLY 2005 , low cervical INSERT INTRAUTERINE DEVICE 10/19/08 mirena LAPAROSCOPY SURG CHOLECYSTECTOMY 2006 Cholecystectomy, lap (Rowena Monet) PAST SURGICAL HISTORY OF 2019 stent into kidney REMOVE IUD 07/13/2010 FAMILY HISTORY Problem Relation Age of Onset Alcohol/Drug Mother Heart Father [place] Cancer Father PANCREATIC CANCER Diabetes Father Diabetes Maternal Grandfather Cancer Maternal Grandmother LUNG CANCER Heart Paternal Grandmother TRIPLE BYPASS SURGERY Social History Tobacco Use Smoking status: Never Smokeless tobacco: Never Vaping Use Vaping Use: Never used Substance Use Topics Alcohol use: No Drug use: No Reviewed current medications, allergies, past medical history, surgical history, family history andsocial history today. REVIEW OF SYSTEMS All other reviewed and negative other than HPI. VITALS: BP 160/80 Pulse 74 Ht 170.2 cm (5' 7) Wt 123.1 kg (271 lb 6.4 oz) LMP 04/07/2022 (Exact Date) SpO2 98% BMI 42.51 kg/m BP w/Orthostatic Vitals Date and Time Orthostatic BP Orthostatic Pulse BP Pulse BP Position BP Site BP Cuff Size 09/04/22 1237 135/82 66 -- -- Standing -- -- 09/04/22 1236 136/76 71 -- -- Sitting -- -- 09/04/22 1235 129/69 76 -- -- Supine -- -- 09/04/22 1150 -- -- 160/80 74 -- -- -- Last 4 Encounter Wt Readings: Date: Wt: 08/02/2022 122 kg (269 lb) 07/19/2022 122.9 kg (271 lb) 06/07/2022 119.8 kg (264 lb 3.2 oz) 05/01/2022 118.4 kg (261 lb) PHYSICAL EXAMINATION: General appearance: Well appearing, alert, in no acute distress, well-hydrated, well nourished. Skin: Skin color, texture, turgor normal, no suspicious rashes or lesions Head: Normocephalic, no masses, lesions, tenderness or abnormalities Eyes: Anicteric sclera. Pupils are equally round and reactive to light. Extraocular movements are intact. Ears: External ears normal, canals clear Nose/Sinuses: Nares normal, septum midline, mucosa normal, no drainage or sinus tenderness Oropharynx: Lips, mucosa, and tongue normal, teeth and gums normal, oropharynx normal Neck: Supple, no adenopathy; thyroid symmetric, normal size, no bruits Lungs: Lungs clear to auscultation. No wheezing, rhonchi, rales Heart: RRR without murmur, gallop, or rubs. No ectopy Abdomen: Normal abdominal exam, Abdomen soft, non-tender. Bowel sounds normal. No masses, organomegaly Extremities: No deformities, edema, skin discoloration, clubbing or cyanosis. Good capillary refill. Musculoskeletal: No joint swelling, deformity, or tenderness Peripheral pulses: Normal Neuro: Gait normal. Reflexes normal and symmetric. Sensation grossly intact., Negative findings: mental status intact, cranial nerves 2-12 intact, gait, including heel, toe, and tandem walking normal, muscle tone normal, no nystagmus, negative hallpike. ASSESSMENT/PLAN: 1. Lightheadedness - ICD9: 780.4, ICD10: R42 (primary diagnosis) - check labs. See cardiology. Call if any issues. See counseling and get headaches looked at. Red flags for re-assessment reviewed with patient in detail. 2. Essential (primary) hypertension - ICD9: 401.9, ICD10: I10 - good control - Continue current medication(s) - Goal of BP <130/80 3. Prolonged Q-T interval on ECG - ICD9: 794.31, ICD10: R94.31 - is unchanged. - ECG COMPLETE 4. Type 2 diabetes mellitus with microalbuminuria, with long-term current use of insulin (HCC) - ICD9: 250.40, 791.0, V58.67, ICD10: E11.29, R80.9, Z79.4 Controlled. - follow sugars closelyl. 5. Fatty liver - ICD9: 571.8, ICD10: K76.0 - has been ok. 6. LETITIA (obstructive sleep apnea) - ICD9: 327.23, ICD10: G47.33 - awaiting treatment. Ivette Grimes MD documented in this encounterFair[facility] Center10-[facility] History of Present illness Narrative* Ivette Grimes MD - 09/03/2022 7:36 PM EDT Patient presents with: Follow Up Acute Visit HPI:This Team Access Model visit is a phone encounter. It required patient- provider interaction forthe medical decision making as documented below. Patient was offered a virtual/telemedicine appointment in lieu of an office visit due to recommendations to reduce patient exposure to COVID-19. Patient is aware of limitations of performing the visit without a face to face visit in the office setting and agrees. Complains of not feeling well. She had the topamax switched a while back so tried to adjust timing etc. Has noted feeling dizzy and lightheaded at times. Gets flushed at times. Has been going on for four or five weeks. Has occasional nausea or heartburn. Has tested a few times for covid. Is waiting on a new sleep apnea machine. Waiting on her 5 G machine Is very stressed. Admits to feeling down. Had echo. No new chest pain or shortness of breath. MEDICATIONS: Current Outpatient Medications Medication Sig gabapentin (NEURONTIN) 100 mg capsule Take 2 capsules by mouth twice daily for 90 days. tiZANidine (ZANAFLEX) 4 mg tablet Take 1 tablet by mouth every 8 hours as needed. rizatriptan (MAXALT) 10 mg tablet Take 1 tablet by mouth as needed (at onset of headache. May repeat after 2 hours.). Do not exceed 30 mg per day. dulaglutide (TRULICITY) 0.75 mg/0.5 mL pen injector Inject 0.75 mg subcutaneously one time a week. Inject dose once per week. Discard Pen After topiramate (TOPAMAX) 100 mg tablet Take 1 tablet by mouth twice daily. albuterol HFA (VENTOLIN HFA) 90 mcg/actuation inhaler Inhale 2 Puffs as instructed every 4 hours asneeded for wheezing/shortness of breath. CPAP Modem possibly not working. Downloads ceased last month. Please check device. fexofenadine (ALMA ALLERGY) 180 mg tablet Take 1 tablet by mouth once daily. omeprazole (PRILOSEC) 20 mg capsule Take 1 capsule by mouth daily before breakfast. 1/2 hr before meal. lisinopril (ZESTRIL, PRINIVIL) 5 mg tablet Take 1 tablet by mouth once daily. levonorgestrel (KYLEENA) 17.5 mcg/24 hrs (5 yrs) 19.5 mg IUD 1 Each by INTRAUTERINE route as directed. CPAP Please fit with a Dreamwear under nose FFM. Patient with sore on bridge of nose and difficulties moving in bed with current PAP mask. Ipratropium [place] (ATROVENT) 0.03 % nasal spray Use 2 Sprays in the nose every 12 hours. metroNIDAZOLE (METROGEL) 0.75 % Topical Gel Apply to affected area twice daily. Herrick-3 Fatty Acids (FISH OIL) 500 mg cap Take 1 capsule by mouth once daily. blood sugar diagnostic (BLOOD GLUCOSE TEST) test strip Test blood sugar(s) 1 times daily. Dx: Type 2 DM - Controlled E11.9 Insulin: Yes Lancets lancets Test blood sugar(s) 1 times daily. Dx: Type 2 DM - Controlled E11.9 Insulin: No Njkaqlkp-Ce-Nng-Fe-FA tab Take 1 tablet by mouth once daily. No current facility-administered medications for this visit. ALLERGIES: ALLERGIES Allergen Reactions Lidocaine Hives Steroids [Betametha* Hives PAST MEDICAL HISTORY Diagnosis Date Acute cholecystitis Cholecystitis Anxiety 06/07/2014 Chronic back pain Kidney stones LETITIA treated with BiPAP Type 2 diabetes mellitus (HCC) PAST SURGICAL HISTORY Procedure Laterality Date DELIVERY ONLY 2005 , low cervical INSERT INTRAUTERINE DEVICE 10/19/08 mirena LAPAROSCOPY SURG CHOLECYSTECTOMY 2006 Cholecystectomy, lap (Rowena Monet) PAST SURGICAL HISTORY OF 2019 stent into kidney REMOVE IUD 07/13/2010 FAMILY HISTORY Problem Relation Age of Onset Alcohol/Drug Mother Heart Father [place] Cancer Father PANCREATIC CANCER Diabetes Father Diabetes Maternal Grandfather Cancer Maternal Grandmother LUNG CANCER Heart Paternal Grandmother TRIPLE BYPASS SURGERY Social History Tobacco Use Smoking status: Never Smokeless tobacco: Never Vaping Use Vaping Use: Never used Substance Use Topics Alcohol use: No Drug use: No Reviewed current medications, allergies, past medical history, surgical history, family history andsocial history today. VITALS: LMP 04/07/2022 (Exact Date) Last 4 Encounter Wt Readings: Date: Wt: 08/02/2022 122 kg (269 lb) 07/19/2022 122.9 kg (271 lb) 06/07/2022 119.8 kg (264 lb 3.2 oz) 05/01/2022 118.4 kg (261 lb) PHYSICAL EXAMINATION: Patient is alert and oriented during visit. Answers appropriately. ASSESSMENT/PLAN: 1. Malaise - ICD9: 780.79, ICD10: R53.81 Needs seen in office. Add on tomorrow. Ivette Grimes MD No charge since seeing in am in person documented in this encounterFairfield Medical Center10-18-2022 Miscellaneous Notes* Telephone Encounter - Nakia Caraballo RN - 08/21/2022 1:02 PM EDT Botox approved 08/15/22-01/30/23. Patient made aware that we will get her scheduled. Latonia Caraballo RN documented in this encounterFairfield Medical Center10-05-2022 Miscellaneous Notes* Telephone Encounter - Adelina Mason APRN.CNP - 08/08/2022 12:53 PM EDT Please advise patient insurance will not approve the RFA of her shoulder. Another option would be to repeat the LEFT scapular NB, but with steroids for a therapeutic effect. If she would like to proceed with this option please let me know and will place the order. Thank you, Adelina Mason APRN.GABRIELA documented in this encounterFairfield Medical Center10-05-2022 Miscellaneous Notes* Telephone Encounter - Brittney Cueto - 08/08/2022 10:08 AM EDT Spoke with the patient she has not heard back from [facility] will try them again if not able to reach them she will call [facility] back to schedule. documented in this encounterFairfield Medical Center09-30-2022 Miscellaneous Notes* Telephone Encounter - Karen Bansal APRN.CNP - 08/03/2022 10:33 AM EDT Rizatriptan sent to pharmacy. Stop sumatriptan. * Telephone Encounter - Nakia Caraballo RN - 08/03/2022 9:03 AM EDT Patient reporting that sumatriptan is not helping migraines. Asking for another treatment. Botox referral was sent but still pending. Latonia Caraballo RN documented in this encounterFairfield Medical Center09-29-2022 History of Present illness Narrative* Ivette Grimes MD - 08/02/2022 9:43 AM EDT Patient presents with: Diabetes Follow Up: Shoulder-had a nerve block on shoulder that helped some and helping offered her nerve ablation. Thinking she may just do another nerve block that seems to work enough to let her work through PT. HPI: Patient presents today for office visit for DM: Reports overall feeling well. Medication side effects: Yes. Home sugar check frequency/results:hasn't been checking Hypoglycemic spells: No. Watching diet: No but isn't eating bad. Unexpected weight loss: No. Polyuria, polydipsia: No. Vision Changes: No. Foot lesions or numbness or pain: No. Saw headache clinic for migraines. Waiting for approval for botox. Migraines are flaring currently but imitrex doesn't help her. Waiting for approval. Shoulder-had a nerve block on shoulder that helped some and helping offered her nerve ablation. Thinking she may just do another nerve block that seems to work enough to let her work through PT. On lisinopril for renal protection. LETITIA:still using her cpap. Needs new machine. Sees her lead generation representative soon. . Will be seeing cardiology. Had asked for seeing them with her prolonged qt interval. Was referred in January. Trigs were up on last labs. Discussed dieet. She has been more tired but not sure if related to above issues. MEDICATIONS: Current Outpatient Medications Medication Sig SUMAtriptan (IMITREX) 50 mg tablet Take 1 tablet by mouth as needed. at onset of headache. May repeat after 2 hours. topiramate (TOPAMAX) 100 mg tablet Take 1 tablet by mouth twice daily. tiZANidine (ZANAFLEX) 4 mg tablet Take 1 tablet by mouth every 8 hours as needed. dulaglutide (TRULICITY) 0.75 mg/0.5 mL pen injector Inject 0.75 mg subcutaneously one time a week. Inject dose once per week. Discard Pen After albuterol HFA (VENTOLIN HFA) 90 mcg/actuation inhaler Inhale 2 Puffs as instructed every 4 hours asneeded for wheezing/shortness of breath. gabapentin (NEURONTIN) 100 mg capsule Take 2 capsules by mouth twice daily for 90 days. CPAP Modem possibly not working. Downloads ceased last month. Please check device. fexofenadine (ALMA ALLERGY) 180 mg tablet Take 1 tablet by mouth once daily. omeprazole (PRILOSEC) 20 mg capsule Take 1 capsule by mouth daily before breakfast. 1/2 hr before meal. lisinopril (ZESTRIL, PRINIVIL) 5 mg tablet Take 1 tablet by mouth once daily. levonorgestrel (KYLEENA) 17.5 mcg/24 hrs (5 yrs) 19.5 mg IUD 1 Each by INTRAUTERINE route as directed. CPAP Please fit with a Dreamwear under nose FFM. Patient with sore on bridge of nose and difficulties moving in bed with current PAP mask. Ipratropium [place] (ATROVENT) 0.03 % nasal spray Use 2 Sprays in the nose every 12 hours. metroNIDAZOLE (METROGEL) 0.75 % Topical Gel Apply to affected area twice daily. Herrick-3 Fatty Acids (FISH OIL) 500 mg cap Take 1 capsule by mouth once daily. blood sugar diagnostic (BLOOD GLUCOSE TEST) test strip Test blood sugar(s) 1 times daily. Dx: Type 2 DM - Controlled E11.9 Insulin: Yes Lancets lancets Test blood sugar(s) 1 times daily. Dx: Type 2 DM - Controlled E11.9 Insulin: No Okilgblq-Rv-Oys-Fe-FA tab Take 1 tablet by mouth once daily. No current facility-administered medications for this visit. ALLERGIES: ALLERGIES Allergen Reactions Lidocaine Hives Steroids [Betametha* Hives PAST MEDICAL HISTORY Diagnosis Date Acute cholecystitis Cholecystitis Anxiety 06/07/2014 Chronic back pain Kidney stones LETITIA treated with BiPAP Type 2 diabetes mellitus (HCC) PAST SURGICAL HISTORY Procedure Laterality Date DELIVERY ONLY 2006 , low cervical INSERT INTRAUTERINE DEVICE 10/19/08 mirena LAPAROSCOPY SURG CHOLECYSTECTOMY 2006 Cholecystectomy, lap (Rowena Monet) PAST SURGICAL HISTORY OF 2019 stent into kidney REMOVE IUD 07/13/2010 FAMILY HISTORY Problem Relation Age of Onset Alcohol/Drug Mother Heart Father [place] Cancer Father PANCREATIC CANCER Diabetes Father Diabetes Maternal Grandfather Cancer Maternal Grandmother LUNG CANCER Heart Paternal Grandmother TRIPLE BYPASS SURGERY Social History Tobacco Use Smoking status: Never Smokeless tobacco: Never Vaping Use Vaping Use: Never used Substance Use Topics Alcohol use: No Drug use: No Reviewed current medications, allergies, past medical history, surgical history, family history andsocial history today. REVIEW OF SYSTEMS All other reviewed and negative other than HPI. HEALTH MAINTENANCE: Reviewed health maintenance issues today and recommended the following in detail. HEPATITIS B(1 of 3 - 3-dose series) due on 1982 PNEUMOCOCCAL(2 - PCV) due on 07/28/2020 COVID-19 VACCINE(4 - Booster for Moderna series) due on 12/13/2021 MAMMOGRAM Never done INFLUENZA(1) due on 07/05/2022 DIABETIC FOOT EXAM due on 07/20/2022 VITALS: BP 126/82 Pulse 60 Wt 122 kg (269 lb) LMP 04/07/2022 (Exact Date) BMI 42.13 kg/m Last 4 Encounter Wt Readings: Date: Wt: 07/19/2022 122.9 kg (271 lb) 06/07/2022 119.8 kg (264 lb 3.2 oz) 05/01/2022 118.4 kg (261 lb) 04/09/2022 122.2 kg (269 lb 6.4 oz) PHYSICAL EXAMINATION: General appearance: Well appearing, alert, in no acute distress, well-hydrated, well nourished. Nose/Sinuses: Nares normal, septum midline, mucosa normal, no drainage or sinus tenderness Oropharynx: Lips, mucosa, and tongue normal, teeth and gums normal, oropharynx normal Lungs: Lungs clear to auscultation. No wheezing, rhonchi, rales Heart: RRR without murmur, gallop, or rubs. No ectopy Abdomen: Normal abdominal exam, Abdomen soft, non-tender. Bowel sounds normal. No masses, organomegaly Extremities: No deformities, edema, skin discoloration, clubbing or cyanosis. Good capillary refill. Musculoskeletal: No joint swelling, deformity, or tenderness Feet:Shoes and socks removed, No deformities, ulcers, calluses, normal distal pulses, and sensitiveto 10 gm monofilament ASSESSMENT/PLAN: 1. Type 2 diabetes mellitus with microalbuminuria, with long-term current use of insulin (HCC) - ICD9: 250.40, 791.0, V58.67, ICD10: E11.29, R80.9, Z79.4 (primary diagnosis) - will recheck labs. - LIPID PANEL BASIC - HGB A1C 2. Fatty liver - ICD9: 571.8, ICD10: K76.0 - stable. 3. LETITIA (obstructive sleep apnea) - ICD9: 327.23, ICD10: G47.33 - doing well. 4. Microalbuminuria - ICD9: 791.0, ICD10: R80.9 - keep meds. 5. Lumbar disc disorder - ICD9: 722.93, ICD10: M51.9 Chronic low back pain 6. Prolonged Q-T interval on ECG - ICD9: 794.31, ICD10: R94.31 - per cardiology 7. Fatigue, unspecified type - ICD9: 780.79, ICD10: R53.83 - check labs. - TSH BLD Ivette Grimes MD RTO in six months [facility] Miscellaneous Notes* Telephone Encounter - Nakia Caraballo RN - 08/01/2022 1:21 PM EDT Botox referral sent to pharmacy. Latonia Caraballo RN documented in this [facility]Fair[facility]-19-2022 Miscellaneous Notes* Telephone Encounter - Dayanna Daniels MA - 07/23/2022 11:38 AM EDT Patient has been identified by name and date of : Yes Requested Prescriptions Pending Prescriptions Disp Refills dulaglutide (TRULICITY) 0.75 mg/0.5 mL pen injector 2 mL 11 Sig: Inject 0.75 mg subcutaneously one time a week. Inject dose once per week. Discard Pen After RX INSTRUCTIONS: Patient aware RX will be sent to pharmacy. No need to notify patient. Dayanna Daniels MA April: 04/2022 Nov: 07/2022 Last refill: 07/2021 documented in this encounterFair[facility]09-15-2022 Instructions* Patient Instructions* Gabi Cornelius APRN.GABRIELA - 07/19/2022 2:08 PM EDT Preventative: Topamax (continue for now). Will submit for Botox PA Abortive: Sumatriptan (Imitrex) 50mg tablet at onset of headache. If headache continues after 2 hour, you may repeat above dose. Sumatriptan should NOT be taken on a daily basis Headache Preventive Treatment: Please keep in mind that it takes 4-6 weeks for the medication to start working well and 2-3 monthsat the appropriate dose before deciding if it will be useful or not. If it is not helping at all bythis time, then we will discuss other medications to try. Supplements may take 3-6 months until yousee full effect. Natural supplements: Magnesium Oxide 500 mg at bed Coenzyme Q10 300 mg in AM Vitamin B2- 200 mg twice a day Feverfew 50 mg twice a day Vitamins and herbs that show potential Magnesium: Magnesium (250 mg twice a day or 500 mg at bed) has a relaxant effect on smooth muscles such as blood vessels. Individuals suffering from frequent or daily headache usually have low magnesium levels which can be increase with daily supplementation of 400-750 mg. Three trials found 40-90%average headache reduction when used as a preventative. Magnesium also demonstrated the benefit in menstrually related migraine. Magnesium is part of the messenger system in the serotonin cascade andit is a good muscle relaxant. It is also useful for constipation which can be a side effect of other medications used to treat migraine. Good sources include nuts, whole grains, and tomatoes. Magnesium comes in many different forms: Magnesium glycinate is a good choice for those with a sensitive stomach who have gastrointestinal side effects such as diarrhea with other forms of magnesium. It is anecdotally also helpful with anxiety and sleep. Magnesium threonate also has low risk of gastrointestinal side effects and anecdotally helpful with cognitive function and brain fog symptoms. Magnesium malate has low gastrointestinal side effects and is reportedly more energizing and anecdotally often helpful in fibromyalgia and chronic fatigue syndrome. Magnesium citrate is one of the most studied, popular, and well-absorbed forms of magnesium. It can also be mixed easily with liquids if you can't take pills. However, it comes w ith a higher risk of diarrhea and gastrointestinal side effects, although this could be helpful forthose with constipation. Magnesium oxide is also well studied, cheap, and often used for heartburn and indigestion. However, it is not well absorbed and can have some laxative side effects as well, so can also be helpful for constipation. Riboflavin (vitamin B 2) 200 mg twice a day. This vitamin assists nerve cells in the production of ATP a principal energy storing molecule. It is necessary for many chemical reactions in the body. There have been at least 3 clinical trials of riboflavin using 400 mg per day all of which suggested that migraine frequency can be decreased. All 3 trials showed significant improvement in over half ofmigraine sufferers. The supplement is found in bread, cereal, milk, meat, and poultry. Most Americans get more riboflavin than the recommended daily allowance, however riboflavin deficiency is not necessary for the supplements to help prevent headache. Feverfew: Feverfew is a common garden herb knik to [place] and popular in [facility] as a treatment for disorders typically controlled by aspirin. The mechanism of action is unknown but is believed to be related to a chemical called parthenolide which helps the body use serotonin more effectively. Serotonin helps prevent migraine and assists with resolution when it occurs. Parthenolide also inhibits the release of histamine which is linked to pain and inflammation. Consistency of active ingredients in different products can be a problem. Some formulations don't have the active ingredient (parthenolide) that prevents migraine. A parthenolide content of 0.2% is generally recommended. Typical dosage is one capsule 3 times a day. Coenzyme Q10: This is present in almost all cells in the body and is critical component for the conversion of energy. Recent studies have shown that a nutritional supplement of CoQ10 can reduce the frequency of migraine attacks by improving the energy production of cells as with riboflavin. Doses of 150 mg twice a day have been shown to be effective. Melatonin: Increasing evidence shows correlation between melatonin secretion and headache conditions. Melatonin supplementation has decreased headache intensity and duration. It is widely used as a sleep aid. Sleep is natures way of dealing with migraine. A dose of 3 mg is recommended to start for headaches including cluster headache. Higher doses up to 15 mg has been reviewed for use in Cluster headache and have been used. The rationale behind using melatonin for cluster is that many theories regarding the cause of Cluster headache center around the disruption of the normal circadian rhythm in the brain. This helps restore the normal circadian rhythm. Mar: Mar has a small amount of antihistamine and anti-inflammatory action which may help headache. It is primarily used for nausea and may aid in the absorption of other medications. HEADACHE DIET: Foods and beverages which may trigger migraine Note that only 20% of headache patients are food sensitive. You will know if you are food sensitiveif you get a headache consistently 20 minutes to 2 hours after eating a certain food. Only cut out a food if it causes headaches, otherwise you might remove foods you enjoy! What matters most for diet is to eat a well balanced healthy diet full of vegetables and low fat protein, and to not miss meals. Chocolate, other sweets ALL cheeses except cottage and cream cheese Dairy products, yogurt, sour cream, ice cream Liver Meat extracts (Bovril, Marmite, meat tenderizers) Meats or fish which have undergone aging, fermenting, pickling or smoking. These include: Hotdogs,salami,Lox,sausage, mortadellas,smoked salmon, pepperoni, Pickled leblanc Pods of broad jaquez (Swedish beans, [place]an pea pods, Albanian (antwan) beans, saldnaa and navy beans Ripe avocado, ripe banana Yeast extracts or active yeast preparations such as Tabor's or Mirlande's (commercial bakes goodsare permitted) Tomato based foods, pizza (lasagna, etc.) MSG (monosodium glutamate) is disguised as many things; look for these common aliases: Monopotassium glutamate Autolysed yeast Hydrolysed protein Sodium caseinate flavorings all natural preservatives Nutrasweet Avoid all other foods that convincingly provoke headaches. Headache Prevention Strategies: 1. Maintain a headache diary; learn to identify and avoid triggers. Common triggers include: Emotional triggers: Emotional/Upset family or friends Emotional/Upset occupation Business reversal/success Anticipation anxiety Crisis-serious Post-crisis periodNew job/position Physical triggers: Vacation Day Weekend Strenuous Exercise High Altitude Location New Move Menstrual Day Physical Illness Oversleep/Not enough sleep Weather changes Light: Photophobia or light sesnitivity treatment involves a balance between desensitization and reduction in overly strong input. Use dark polarized glasses outside, but not inside. Avoid bright or fluorescent light, but do not dim environment to the point that going into a normally lit room hurts. Consider FL- 41 tint lenses, which reduce the most irritating wavelengths without blocking too muchlight. These can be obtained at [employer] or [employer]: see list above. 2. Limit use of acute treatments (prct-eir-myjzuyk medications, triptans, etc.) to no more than 2 days per week or 10 days per month to prevent medication overuse headache (rebound headache). 3. Follow a regular schedule (including weekends and holidays): Don't skip meals. Eat a balanced diet. 8 hours of sleep nightly. Minimize stress. Exercise 30 minutes per day. Being overweight is associated with a 5 times increased risk of chronic migraine. Keep well hydrated and drink 6-8 glasses of water per day. 4. Initiate non-pharmacologic measures at the earliest onset of your headache. Rest and quiet environment. Relax and reduce stress. Dgrmkwh4Lrmsn is a free félix that can instruct you on some simple relaxtionand breathing techniques. Http://[employer] is a free website that provides teaching videos on relaxation. Also, there are many apps that can be downloaded for mindful relaxation. An félix called YOGA NIDRA will help walk you through mindfulness. Cold compresses. 5. Don't wait!! Take the maximum allowable dosage of prescribed medication at the first sign of migraine. 6. Compliance: Take prescribed medication regularly as directed and at the first sign of a migraine. 7. Communicate: Call your physician when problems arise, especially if your headaches change, increase in frequency/severity, or become associated with neurological symptoms (weakness, numbness, slurred speech, etc.). 8. Headache/pain management therapies: Consider various complementary methods, including medication, behavioral therapy, psychological counselling, biofeedback, massage therapy, acupuncture, dry needling, and other modalities. Such measures may reduce the need for medications. Counseling for pain ma nagement, where patients learn to function and ignore/minimize their pain, seems to work very well. 9. Recommend changing family's attention and focus away from patient's headaches. Instead, emphasize daily activities. If first question of day is 'How are your headaches/Do you have a headache today?', then patient will constantly think about headaches, thus making them worse. Goal is to re-directattention away from headaches, toward daily activities and other distractions. 10. Helpful Websites: www.AmericanHeadacheSociety.org www.migrainetrust.org www.headaches.org www.migraine.org.uk www.achenet.org 11. HEADACHE EXPECTATIONS: There are many types of headaches, and only a rare few in which complete relief can be expected. Ingeneral, there is no cure for headache, especially migraine based headaches. There is nothing available that completely prevents headaches from occurring, breaking through, or having periodic flare-ups and fluctuations. Regardless of what you are using on a daily basis for prevention, episodic headaches should still be expected, and periods where frequency may escalate and fluctuate are unavoidable. There is no quick fix for most headaches. Furthermore, the longer you have had high frequency headaches (such as chronic daily headache), the longer it will likely take to expect any improvement. In fact, some people will never improve, regardless of how many medications or other treatments we try.Our treatment strategy is to evaluate for possible causes of your headache, although testing is usually always normal, even in cases of daily continuous headaches for years. Most types of headache such as migraine are electrical brain disorders (similar to how epilepsy is an electrical brain disorders). Therefore, there is no testing that will reveal this dysfunctional electrical circuitry suchon MRI, or other testing. We try to find a medication that may help lessen the frequency and/or severity of your headaches. The goal is not to completely stop them from happening, although if that happens, great! Different people respond to different medications, and some people just don't respond to anything, so it's usually a matter of trying different options. We can not predict if or when exac tly you will respond to a treatment that we provide. Preventive headache medications take 4-6 weeks to start working, and 2-3 months to see full effect,assuming you reach an effective dose. Therefore, calling or messaging frequently because you have aheadache flare prior to the 3 month sammy is unlikely to change anything, and unfortunately there isnothing available that will expedite this, so please try to avoid this. Our recommendation will gene rally be to give it adequate time first. If you are unable to wait it out for medications to work, we can also try IV infusions for some temporary relief. O In general, the best that preventive medications or other treatments (including Botox) are able to offer in migraine management (variable in other headache types) is a 50% improvement in frequency and/or severity of headache. That is our goal, and any additional benefit is considered a bonus. Some people do significantly better than this, others do not get close to this. Therefore, if your headaches are not improving by at least 3 months on your preventive strategy, contact us and we can discuss further adjustments. Keep in mind that complete headache cure is not a realistic expectation. Our Team: The nursing staff, and medical assistants are a major part of YOUR TREATMENT TEAM and will be handling your phone calls and inquiries, if any. Unless explicitly told otherwise at the time of your office visit, your study results and ensuing treatment plans will be released via [employer] and discussedduring your follow-up appointment. MyChart: Please ask the schedulers to give you an activation code. The main way of communication isby [employer] rather than phone lines, so if you have not signed up, please do so. W[employer] is also theway that you can review your labs and testing. We are not able to contact everyone to tell them results are normal. If you do not hear back from us regarding testing you have had, it should be considered normal or within normal range. If you have any questions about the results, you are free to message us. [employer] is meant for simple questions regarding medications, possible side effects, or other simplestraight forward questions in limited sentences, rather than multiple paragraphs of discussion. [employer] is not meant for, or efficient for these complex questions, extensive questions, extensive medication adjustments, complex new symptoms or concerns. These issues beyond simple questions require afollow up visit with myself, one of our physician assistants, nurse practitioners, or a Virtual Visit via computer or smart phone, as detailed further down. Refills: Please pay attention to when your refills will need to be renewed. Due to the volume of phone callsdaily, this could potentially take a few days, although we certainly try to honor your refill requests as soon as we can. You should call at least 1 week in advance of needing a refill to ensure you do not run out of medication. Keep in mind that refill requests on Fridays may not be filled until the following week. The Headache and Facial Pain Section does not complete disability or any other insurance-related forms/documention. We will complete FMLA forms. All of the office notes, study results, and other pertinent documentation generated as part of your evaluation will be available to you and to your Primary Care Physician (PCP). Use of this material to complete such forms will be at the discretion of your PCP/referring physician. In regards to blood work, testing, and radiology reports these are released automatically to the patients. We do not comment on most testing on [employer] in a message or commentary unless there is a concern. You will not receive a message from me of the result unless there is a specific concern of the result I need you to address further in care with us or your primary medical team. Make sure to check your my chart email or félix. documented in this [facility]22 History of Present illness Narrative* Karen Bansal APRN.CNP - 07/19/2022 1:00 PM EDT Images from the original note were not included. [facility] General [facility] New Patient Headache Evaluation CHIEF COMPLAINT: Headaches Tori Gray is a 42 year old female with history of anxiety, kidney stone s/p surgical removal, chronic back pain, LETITIA with Bipap and DM 2. She is unaccompanied. Consult was requested by Tara Gillette CNP for an opinion regarding migraines. My final impression and recommendations will becommunicated back to the requesting physician by way of the shared medical record or fax. HPI: Here today for Botox referral. Was previously seen by Tara Gillette CNP and treated for migraines. Recently had Topamax increased to 100 mg BID. Has not found the increase to be beneficial as ofyet. However, severity has decreased since initiated on Topamax. Has not tried an abortive medication that she is aware of. Average severity 5/10, aching. Bilateral temporal. Minimal tylenol intake, four doses a month. Has noticed weather is a trigger. Denies auras or visual disturbance. Wears glasses regularly. Has tried multiple medications for her migraines. Left shoulder injury has exacerbated her headaches. Currently going to PT. Diagnosed with LETITIA seven years ago, Bipap has somewhat improved her headaches. Sleep improved. Feels rested in the morning. Normal stress levels. Headache Description Onset: Early 30's. 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 Denies upon wakening. Total headache days per month: 14 per month Total headache attacks per month: 14 per month Headache free days: Yes- 3 days Duration of attacks: 4- 6 hours Severity of headaches? moderate- severe Onset to Peak: 2 hours Location: temporal region bilateral and rarely occipital Aura: None Prodrome: none. Accompanying symptoms: Has had photophobia and nausea previously. Quality: aching/pressure/ annoying Worse with activity: No Triggers: weather changes. Cough/sneeze/valsalva as trigger: No Positional changes: No Most common time of day for headache to begin: early AM. Time missed from work or school: none Risk Factors Tobacco Use: No Alcohol Use: No Other substances: No Caffeine: Yes, one soda daily Neck Pain /Back Pain: chronic back pain Fibromyalgia: No History of Motor Vehicle Accident: No History of Traumatic Brain Injury and/or Concussion: No History of severe infection: No History of Syncope: No Obesity: Yes, Body mass index is 42.44 Family History Migraine or other headaches in the family: Yes, Daughter Aneurysms in a first degree relative: No Brain tumors in the family: No Other neurological illness in the family: No Sleep: Normal sleep pattern, compliant with Bipap Mood: normal and unchanged Energy: Normal - stable Stress: Normal Current Headache Medications: Preventative: Topamax, gabapentin Abortive: Tylenol Medications effective? Sometimes, takes edge off # of doses of abortive medications per month: 4 Medications tried previously (failed): Lyrica, Excedrin, Tylenol, Amiovig, Topamax, Amitriptyline, Propranolol, Trokendi XL, Naproxen Relevant Work Up To Date Outside imaging reviewed Lab work obtained from [facility] and reviewed Blood studies 02/07/2022 Hemoglobin A1C 5.1 PMH PAST MEDICAL HISTORY Diagnosis Date Acute cholecystitis Cholecystitis Anxiety 06/07/2014 Chronic back pain Kidney stones LETITIA treated with BiPAP Type 2 diabetes mellitus (HCC) PAST SURGICAL HISTORY Procedure Laterality Date DELIVERY ONLY 2006 , low cervical INSERT INTRAUTERINE DEVICE 10/19/08 mirena LAPAROSCOPY SURG CHOLECYSTECTOMY 2006 Cholecystectomy, lap (Rowena Monet) PAST SURGICAL HISTORY OF 2019 stent into kidney REMOVE IUD 07/13/2010 ALLERGIES Allergen Reactions Lidocaine Hives Steroids [Betametha* Hives Social History Tobacco Use Smoking status: Never Smokeless tobacco: Never Vaping Use Vaping Use: Never used Substance Use Topics Alcohol use: No Drug use: No FAMILY HISTORY Problem Relation Age of Onset Alcohol/Drug Mother Heart Father [place] Cancer Father PANCREATIC CANCER Diabetes Father Diabetes Maternal Grandfather Cancer Maternal Grandmother LUNG CANCER Heart Paternal Grandmother TRIPLE BYPASS SURGERY Medications tiZANidine (ZANAFLEX) 4 mg tablet Take 1 tablet by mouth every 8 hours as needed. topiramate (TOPAMAX) 100 mg tablet Take 1 tablet by mouth twice daily. albuterol HFA (VENTOLIN HFA) 90 mcg/actuation inhaler Inhale 2 Puffs as instructed every 4 hours asneeded for wheezing/shortness of breath. gabapentin (NEURONTIN) 100 mg capsule Take 2 capsules by mouth twice daily for 90 days. CPAP Modem possibly not working. Downloads ceased last month. Please check device. fexofenadine (ALMA ALLERGY) 180 mg tablet Take 1 tablet by mouth once daily. omeprazole (PRILOSEC) 20 mg capsule Take 1 capsule by mouth daily before breakfast. 1/2 hr before meal. lisinopril (ZESTRIL, PRINIVIL) 5 mg tablet Take 1 tablet by mouth once daily. dulaglutide (TRULICITY) 0.75 mg/0.5 mL pen injector Inject 0.75 mg subcutaneously one time a week. Inject dose once per week. Discard Pen After levonorgestrel (KYLEENA) 17.5 mcg/24 hrs (5 yrs) 19.5 mg IUD 1 Each by INTRAUTERINE route as directed. CPAP Please fit with a Dreamwear under nose FFM. Patient with sore on bridge of nose and difficulties moving in bed with current PAP mask. Ipratropium [place] (ATROVENT) 0.03 % nasal spray Use 2 Sprays in the nose every 12 hours. metroNIDAZOLE (METROGEL) 0.75 % Topical Gel Apply to affected area twice daily. Herrick-3 Fatty Acids (FISH OIL) 500 mg cap Take 1 capsule by mouth once daily. blood sugar diagnostic (BLOOD GLUCOSE TEST) test strip Test blood sugar(s) 1 times daily. Dx: Type 2 DM - Controlled E11.9 Insulin: Yes Lancets lancets Test blood sugar(s) 1 times daily. Dx: Type 2 DM - Controlled E11.9 Insulin: No Nyydtquk-Ac-Iuw-Fe-FA tab Take 1 tablet by mouth once daily. SUMAtriptan (IMITREX) 50 mg tablet Take 1 tablet by mouth as needed. at onset of headache. May repeat after 2 hours. VAHE - 2/7 SCORES 05/16/2017 03/29/2022 VAHE-2 Score 2 0 VAHE-7 Score - 0 PHQ-9 05/16/2017 07/29/2020 03/29/2022 Score 8 2 2 General Examination: BP 115/57 (BP Site: Left Arm, BP Position: Sitting, BP Cuff Size: Large Adult) Pulse 76 Ht 170.2 cm (5' 7) Wt 122.9 kg (271 lb) LMP 04/07/2022 (Exact Date) BMI 42.44 kg/m 07/19/22 1257 BP: 115/57 BP Site: Left Arm BP Position: Sitting BP Cuff Size: Large Adult Pulse: 76 Weight: 122.9 kg (271 lb) Height: 170.2 cm (5' 7) Well-groomed. No acute distress. The patient was alert and oriented to person, place, and time withnormal language, attention and concentration, recent and remote memory, praxis, and intellectual function. Affect was normal. The patient did not appear depressed. Neurological Examination: CN II-XII intact PERRLA No ptosis. Visual cardenas are full to confrontation. Extraocular movements are intact. Smooth saccades and pursuits. No nystagmus. Facial motor exam is strong and symmetric. Equal sensation of trigeminal nerve - V1,V2, and V3. Soft palate elevation is symmetric, tongue is in midline, no tongue fasciculation. Neck range of motion is full. Trapezius Strength is symmetric, graded 5/5. Speech: normal Motor Examination: Right Upper Extremity: (of 5) Left Upper Extremity: (of 5) Shoulder Abduction (A) 5 Shoulder Abduction 5 Elbow Flexion (MC) 5 Elbow Flexion 5 Elbow Extension (R) 5 Elbow Extension 5 Wrist Flexion (U/M) 5 Wrist Flexion 5 Wrist Extension (R) 5 Wrist Extension 5 Finger Abduction (U) 5 Finger Abduction 5 Electronic Plotting System Operator 5 Electronic Plotting System Operator 5 Right Lower Extremity: (of 5) Left Lower Extremity: (of 5) Hip Flexion (F) 5 Hip Flexion 5 Hip Abduction 5 Hip Abduction 5 Hip Adduction 5 Hip Adduction 5 Knee Extension (F) 5 Knee Extension 5 Knee Flexion (S) 5 Knee Flexion 5 Dorsiflexion (P) 5 Dorsiflexion 5 Plantarflexion (T) 5 Plantarflexion 5 Coordination: Upper extremity dexterity and rapid movements: Normal bilaterally Finger-nose: no dysmetria; coordination intact Heel-stokes: no dysmetria; coordination intact No rigidity, cog wheeling, or bradykinesia. No tremors. No extrapyramidal findings or dystonia. Sensory: Intact, Vibration: Intact, Temperature: Intact, Touch: Intact Reflexes Right Extremities Left Lower Extremities: Triceps (C7-8R) 2 Triceps 2 Biceps (C5-6MC) 2 Biceps 2 Brachioradialis (C5-6R) 2 Brachioradialis 2 Patellar (L3-4F) 2 Patellar 2 Achilles (S1-2S) 2 Achilles 2 Negative Babinski (toes curl down). Gait Standing balance: Normal Standard gait: normal. Assistive device: independent Romberg's sign is negative. IMPRESSION/PLAN: (G43.719) Intractable chronic migraine without aura and without status migrainosus (primary encounter diagnosis) Tori Gray is a 42 year old female with history of anxiety, kidney stone s/p surgical removal, chronic back pain, LETITIA with Bipap and DM 2. Her neurological examination is unremarkable. She is here today to establish care and treatment of Chronic migraines which began in her early 30's. She has tried Lyrica, Excedrin, Tylenol, Naproxen, Amiovig, Topamax, Amitriptyline, Propranolol and Trokendi XL. Headaches are consistent with chronic migraine +/- tension headache features. Patient would benefit from Botox for chronic migraines as she has tried multiple preventative medications without success. Patient is still having 28 headache days per month. Will order Sumatriptan as an abortive medication. Discussed risk vs. benefit with continuing Topamax in the setting of renal stones. Patient would like to continue until receiving Botox approval. Instructed to increase water intake. Plan: All options for treatment discussed. Preventative: Topamax (continue for now). Will submit for Botox PA Abortive: Sumatriptan (Imitrex) 50mg tablet at onset of headache. If headache continues after 2 hour, you may repeat above dose. Sumatriptan should NOT be taken on a daily basis. We will get a precert for Onabotulinum Toxin A using the PREEMPT protocol. This patient meets FDA criteria for Chronic Migraine without aura, without mention of intractable migraine without mention of status migrainosus. The migraine lasts for greater than 4 hours and has been chronic for more thanthree months. Onabotulinum Toxin A is FDA approved for chronic migraine. Patient will not use in conjunction with CGRP preventive medications. Medication overuse, alternate diagnosis, confounding psychiatric or social stresses have been ruled out as the cause of headaches. Severity: moderate to severe Quality: throbbing/ Aching Migraine days a month: 14 Headache days a month: 14 Total Headache days a month: 28 Headache free days a month: 3 Gabi Cornelius APRN.GABRIELA [facility] General Neurology My impression and recommendations were discussed at length with the patient (and family members, ifpresent). The patient and family (if present) voiced understanding to my recommendations. All questions were answered. Medication side effects discussed as applicable. The patient was provided with adetailed after visit summary highlighting my impression and recommendations. Attestation: I have reviewed the clinical details obtained and documented by JEANNIE Cornelius and I have participated in the santos components. I discussed the case and the management plans with JEANNIE Cornelius, and I fully agree with the recommendations as outlined above. Edits to the note are indicated by italics and the note reflects my input. I spent a total of 60 minutes on the date of the service which included preparing to see the patient, [id number] patient care, completing clinical documentation, obtaining and/or reviewing separately obtained history, performing a medically appropriate examination, counseling and educating the pat ient/family/caregiver, and ordering medications, tests, or procedures. My impression and recommendations were discussed at length with the patient (and family members, ifpresent). The patient and family (if present) voiced understanding to my recommendations. All questions were answered. The patient was provided with a detailed after visit summary highlighting my impression and recommendations. Karen Bansal APRN.GABRIELA documented in this encounterFairfield [facility] Center09-15-2022 NoteHNO ID: [id number] Author: Adelina Mason APRN.GABRIELA Service: ? Author Type: Nurse Practitioner Type: Progress Notes Filed: 07/19/2022 10:17 AM Note Text: [facility] Today's Date: 07/19/2022 Last Visit: 05/24/22 Name: Tori Gray : 1980 Purpose: Established Patient Encounter Interval History: Since last encounter, Tori Gray; reports that the chronic problem(s) of LEFT shoulder pain are Worse. Last OV she noted 75% pain relief after Suprascapular NB and ROM was improving. She was still having excellent relief last OV and opted to hold on any further intervention. States over the last 1-2 weeks she has noted her pain returning despite PT and HEP. She is ready to proceed with RFA at this time. She had Side effects with Lyrica, so she had restarted gabapentin, reports this is helping and tolerates this well. Pain Description: Timing: constant, but worse with activity Character: Numb and Tingling Primary Location: LEFT shoulder Radiation: None Exacerbating factors: lifting Relieving factors: unable to pinpoint positions/factors that are mitigating Interferes with: physical activity and work The patient denies difficulty with bowel or bladder control, unintentional weight loss and fevers, chills, or night sweats. New Problems reported: See above Recall: Patient of Dr. Sanchez. Current Status: INTAKE PAIN ASSESSMENT 06/07/2022 07/19/2022 Are you having pain associated with your visit today? No Yes, Provider notified Pain Scales - Verbal (Numeric Rating or Visual Analog Scale) Pain Level - 7 Pain Location - Shoulder-Left Description - Sharp;Shooting Duration Amount of Time - - Duration Units - Years Frequency - Intermittent Intervention/Comfort measure - Other: See comment Comments - nothing currently Current Pain Medications: Opioids: NSAIDS: Anti-depressants: Anti-convulsants: Gabapentin 200mg BID, topamax Muscle relaxants: Tizanidine Others: Tylenol arthritis Analgesia: partially adequate Current Anti-Coagulant Use: No Allergies: ALLERGIES Allergen Reactions Lidocaine Hives Steroids [Betametha* Hives Data Reviewed: Reviewed personally on today's date 07/19/2022 Relevant Imaging: MRI Spine Report MRI LUMBAR SPINE WO CONTRAST Collected: 02/16/2010 8:25 AM (Final result) MRI C-Spine 08/2021 ([facility]): Very mild degenerative changes MRI L-spine 11/2021 ([facility]): Very mild degenerative changes. Facet arthropathy at L1-2 through L5-S1. MRI Left Shoulder 10/2021 ([facility]): Small GH effusion, small degenerative change posterior-inferior labrum (Per Dr. Greene) MRI of the right shoulder from an outside facility is essentially normal with some minor degenerative labral fraying and a joint effusion. Recent labs: Creatinine Date Value Ref Range Status 08/12/2015 0.59 (L) 0.70 - 1.40 mg/dL Final @lastegfr(gfr)@ Glucose, Point of Care Date Value Ref Range Status 05/10/2022 104 (A) 74 - 99 mg/dL Final Comment: Location:[facility], [address] [place] [address], [facility] The Accu-Chek Inform II glucose meter has not been approved for testing on patients receiving intensive medical intervention or therapy and results from this point of care glucose test should not be used for patient management decisions in these cases. Inaccurate results may also occur from other interfering factors, such as N-acetylcysteine (blood concentrations of greater than 5mg/dL), galactose, extremes of hematocrit (<10 or >65), or high doses of ascorbic acid (vitamin C) greater than 3mg/dL. Consider alternate testing mechanisms (e.g. core lab, blood gas instrument) in the above situations. Pain Procedures: DATE PROCEDURE IMPROVEMENT 05/09/22 LEFT suprascapular NB 75% Compliance: PDMP website checked and validated. All prescriptions have been APPROPRIATELY filled. No suspicious activity was identified. 07/19/2022 by Adelina Mason APRN.[facility] Last Drug screen: Not Applicable Risk Assessment: VAHE-7: VAHE - 7 SCORES 03/29/2022 VAHE-7 Score 0 (0-4) minimal anxiety, (5-9) mild anxiety, (10-14) moderate anxiety, (15-21) severe anxiety PHQ-9: PHQ-9 05/16/2017 07/29/2020 03/29/2022 Score 8 2 2 (0-4) minimal depression, (5-9) mild depression, (10-14) moderate depression, (15-19) moderately severe depression, (20-27) severe depression Current Medications, Past Medical History, Past Surgical History, Family History, Social History and Review of Systems: On today's date, 07/19/2022, noted above, I have confirmed and edited as necessary, the PFSH and ROS obtained by others. Physical Exam: 07/19/22 0944 Pulse: 63 Resp: 16 SpO2: 98% Constitutional: morbidly obese HEENT: Normal Cephalic, Atraumatic, Non-icteric sclera Eyes: Conjunctiva clear. No discharge from eyes Cardiovascular: Appears well perfused Lymphatic: No visible regional lymphad (more content not included)...[facility]09-15-2022 NoteHNO ID: [id number] Author: Tiana Cifuentes MA Service: ? Author Type: Stereotyper Apprentice Type: Progress Notes Filed: 07/19/2022 10:17 AM Note Text: Review of Systems Constitutional: Negative for activity change, chills, fever and unexpected weight change. Gastrointestinal: Negative for bowel retention or incontinence Genitourinary: Negative for difficulty urinating. Negative for bladder retention or incontinence Musculoskeletal: Positive for back pain, neck pain and neck stiffness. Negative for arthralgias, gait problem, joint swelling and myalgias. Neurological: Positive for weakness, numbness and headaches. Psychiatric/Behavioral: Negative for dysphoric mood, sleep disturbance and suicidal ideas. The patient is not nervous/anxious.[facility]09-15-2022 Miscellaneous Notes* Telephone Encounter - Pankaj Murillo - 07/19/2022 10:35 AM EDT 1.Are you diabetic Yes. Please list the current medications being prescribed Trulicity. 2. Are you on any blood thinners? No 3. Are you taking any aspirin? No 4. Have you had any recent imaging done on your body part that's being injected? Yes Xrays and MRI 5. Do you have any allergies to latex? No 6. Do you have any allergies to seafood? No 7. Do you have any allergies to shellfish? No 8. Do you have any allergies to x-ray dye? No 9. Are you taking Xanax for the procedure? No 10. Have you done physical therapy in the last year? Yes If yes, When and Where? [facility], currently attending (Medical Records Release needs to be signed.) 11. Were the pre-procedure instructions explained to the patient? Yes, given to patient 12. Do you have a pacemaker? No 13. Do you have an internal stimulator of any kind? No If yes, please bring the remote with you to your procedure visit. 14. Have you received the COVID-19 Vaccine? Yes. If yes, date(s) received: explained to patient (Patient should not receive a procedure including steroids 14 days prior to their first dose of theCOVID vaccine. They should not receive any procedure containing steroids in the time frame between their 1st and 2nd doses of the COVID vaccine. They should not receive a procedure containing steroids 14 days after their 2nd dose of the COVID vaccine.) Pankaj Murillo documented in this encounterFairfield Medical Center09-06-2022 Miscellaneous Notes* Telephone Encounter - Ingrid Salmon Ma - 07/10/2022 1:55 PM EDT Last office visit: 05/01/22 F/u scheduled: 08/02/22 Ingrid Salmon Ma documented in this encounterFairfield Medical Center08-30-2022 Miscellaneous Notes* Telephone Encounter - LEVAR Jasmine - 07/03/2022 11:44 AM EDT APRIL 06/07/2022 with KD Appointment scheduled 07/19 with Karen CHEN Notes: Assessment/Plan: G43.019 Intractable migraine without aura and without status migrainosus (primary encounter diagnosis) G44.40 Medication overuse headache Comment: At time of previous appointment pt reporting worsening of headaches. Concern for possible medication overuse as well as exacerbation by other pain syndromes. She has since reduced use of Excedrin as well as Tylenol with minimal change in symptoms. She is currently taking Topamax 50mg in AMand 100mg in PM. She has also since discontinued Lyrica due to SE and restarted gabapentin (as advised by her PCP). Headaches still occurring roughly 22 days per month. At this time will increase Topamax dose so that she is taking 100mg in both AM and PM. Note, lab work obtained from [facility] and reviewed. Given persistence of headaches will also refer to headache clinic for consideration of Botox therapy. G47.33 LETITIA (obstructive sleep apnea) E66.01, Z68.42 Class 3 severe obesity with body mass index (BMI) of 45.0 to 49.9 in adult, unspecified obesity type, unspecified whether serious comorbidity present (HCC) Comment: Pt remains compliant with PAP. Denies concerns regarding machine or mask fit. Download obtained, however, results only available until February. As noted at time of previous appointment, suspect due to outdated modem. Will again reach out to DME as pt previously had declined new machine. Per download available AHI normalized and no mask leak. Please advise. Thank you. LEVAR Jasmine documented in this encounterFairfield Medical Center08-19-2022 Miscellaneous Notes* Telephone Encounter - Dayanna Daniels MA - 06/22/2022 8:30 AM EDT Patient has been identified by name and date of : Yes Requested Prescriptions Pending Prescriptions Disp Refills tiZANidine (ZANAFLEX) 4 mg tablet 20 tablet 0 Sig: Take 1 tablet by mouth every 8 hours as needed. RX INSTRUCTIONS: Patient aware RX will be sent to pharmacy. No need to notify patient. Dayanna Daniels MA April: 04/2022 Nov: Last refill: 06/06/2022 20 tablets documented in this encounterFairfield Medical Center08-04-2022 Miscellaneous Notes* Telephone Encounter - LEVAR Jasmine - 06/07/2022 4:24 PM EDT Orders and APRIL Notes faxed to [facility] [place] to service pts PAP due to compliance reports and data no longerbeing able to be pulled from device. LEVAR Jasmine documented in this encounterFairfield Medical Center08-04-2022 History of Present illness Narrative* Tara Gillette APRN.ELECTROTYPER HELPER - 06/07/2022 3:30 PM EDT Images from the original note were not included. [facility] [place] Follow-up Visit Follow-up note June 07, 2022 HPI: Ms. Gray presents today for a follow-up visit. Per her previous visit with Dr. Mejia on 04/09/22: ASSESSMENT/PLAN: 1. Intractable migraine without aura and without status migrainosus - ICD9: 346.11, ICD10: G43.019 (primary diagnosis) 2. Medication overuse headache - ICD9: 339.3, ICD10: G44.40 Worsening headaches over past months, of which definite provoking factor unknown but suspect exacerbated by other pain syndromes as well as medication overuse (tyelnol and excedrin). Encouraged pt toreduce if not stop OTC meds. Will increase Topamx to 50mg QAM and 100mg PM - reviewed SE and ADRs. If no improvement will then attempt to increase Lyrica dose as well (see pt instructions). If still no improvement may refer for botox therapy. Note pt cannot take steroids due to allergy. Would avoidtriptans given history of elevated BP. Check CMP and CBC due to longterm med use. 3. LETITIA (obstructive sleep apnea) - ICD9: 327.23, ICD10: G47.33 4. Class 3 severe obesity with body mass index (BMI) of 45.0 to 49.9 in adult, unspecified obesity type, unspecified whether serious comorbidity present (HCC) - ICD9: 278.01, V85.42, ICD10: E66.01, Z68.42 Encouraged PAP compliance. Encouraged weight loss. Contacting DME regarding no longer providing download - suspect due to outdated modem. AHI normalized on current settings. No significant leaks. Advised patient to clean and replace equipment regularly. Advised pt not to drive or operate heavy machinery when sleepy. 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 Usually getting about 7 hours of sleep. States mask has been ok. Pressure is ok. Not napping duringthe day except for once in a while. Does note feel exhausted during the day. Download reviewed but data not available from March until this time. Migraines have not been good. Had a migraine over the past four to five days. States she has been taking Excedrin migraine yesterday and today. Usually takes Naproxen but did not have this with her. Has not taken Tylenol PM since increasing Topamax dose. Only takes it every now and then. Having a migraine almost daily. Throughout the month of May she has had a migraine for 22 days. Cannot find any triggers. Denies visual changes or auras. Wears glasses regularly and prescription is current. Increased her Topamax QHS. Denies SE with the 100mg dose. She had switched from gabapentin to Lyrica for her shoulder. However, when on the Lyrica she felt depressed. She has since restarted her gabapentin. States mood improved. States she would be interested in botox therapy as she has tried multiple medications which have not helped. Had tried Aimovig in the past. *PAP download reviewed from 11/25 to 02/23. Worn for 89/90 days for an average of 8 hours and 40 minutes. Settings 19.6cm H2O max and 12.2cmH2O min. Pressure support 6.2cmH20. AHI of 0.2. Leak 95th percentile 1.9. PAST MEDICAL HISTORY Diagnosis Date Acute cholecystitis Cholecystitis Anxiety 06/07/2014 Type 2 diabetes mellitus (HCC) PAST SURGICAL HISTORY Procedure Laterality Date DELIVERY ONLY 2005 , low cervical INSERT INTRAUTERINE DEVICE 10/19/08 mirena LAPAROSCOPY SURG CHOLECYSTECTOMY 2005 Cholecystectomy, lap (Rowena Monet) PAST SURGICAL HISTORY OF 2019 stent into kidney REMOVE IUD 07/13/2010 Current Outpatient Medications on File Prior to Visit Medication Sig tiZANidine (ZANAFLEX) 4 mg tablet Take 1 tablet by mouth every 8 hours as needed. albuterol HFA (VENTOLIN HFA) 90 mcg/actuation inhaler Inhale 2 Puffs as instructed every 4 hours asneeded for wheezing/shortness of breath. gabapentin (NEURONTIN) 100 mg capsule Take 2 capsules by mouth twice daily for 90 days. topiramate (TOPAMAX) 50 mg tablet One tab daily CPAP Modem possibly not working. Downloads ceased last month. Please check device. fexofenadine (ALMA ALLERGY) 180 mg tablet Take 1 tablet by mouth once daily. omeprazole (PRILOSEC) 20 mg capsule Take 1 capsule by mouth daily before breakfast. 1/2 hr before meal. lisinopril (ZESTRIL, PRINIVIL) 5 mg tablet Take 1 tablet by mouth once daily. dulaglutide (TRULICITY) 0.75 mg/0.5 mL pen injector Inject 0.75 mg subcutaneously one time a week. Inject dose once per week. Discard Pen After levonorgestrel (KYLEENA) 17.5 mcg/24 hrs (5 yrs) 19.5 mg IUD 1 Each by INTRAUTERINE route as directed. CPAP Please fit with a Dreamwear under nose FFM. Patient with sore on bridge of nose and difficulties moving in bed with current PAP mask. Ipratropium [place] (ATROVENT) 0.03 % nasal spray Use 2 Sprays in the nose every 12 hours. metroNIDAZOLE (METROGEL) 0.75 % Topical Gel Apply to affected area twice daily. Herrick-3 Fatty Acids (FISH OIL) 500 mg cap Take 1 capsule by mouth once daily. blood sugar diagnostic (BLOOD GLUCOSE TEST) test strip Test blood sugar(s) 1 times daily. Dx: Type 2 DM - Controlled E11.9 Insulin: Yes Lancets lancets Test blood sugar(s) 1 times daily. Dx: Type 2 DM - Controlled E11.9 Insulin: No Oammbtrb-Cd-Kdw-Fe-FA ( FORMULA) ORAL Tab Take 1 tablet by mouth once daily. No current facility-administered medications on file prior to visit. Social History Tobacco Use Smoking status: Never Smoker Smokeless tobacco: Never Used Vaping Use Vaping Use: Never used Substance Use Topics Alcohol use: No Drug use: No ALLERGIES Allergen Reactions Lidocaine Hives Steroids [Betametha* Hives Review of Systems: Cardiopulmonary: denies chest pain, palpitations Respiratory: denies shortness of breath GI/: denies recent nausea, vomiting, diarrhea, constipation, incontinence Musculoskeletal: denies weakness Back/spine: denies low back or + cervical pains Neuro: denies tremors, loss of feeling, dizziness, seizure, blackout, paresthesia, facial paresthesia, facial weakness, difficulty in speech, slurring of words, dysarthria, dysphagia, memory loss, + headache, vision changes, loss of hearing Physical Exam: 06/07/22 1513 BP: 112/68 Pulse: 80 Resp: 22 Temp: 36.6 C (97.8 F) SpO2: 98% Weight: 119.8 kg (264 lb 3.2 oz) Patient is alert and in no distress. Dress is appropriate. Mood is appropriate Breathing appears regular and unstressed Neurologic examination: Cognitively intact. No deficits. No formal MMSE performed. CN: Pupils equal and reactive to light, extraocular movements intact with no nystagmus, face is symmetric with no facial droop, hearing intact bilaterally, symmetric evaluation of the soft palate, tongue is midline with no deviation, shoulder shrug is symmetric. Motor exam shows 5/5 strength symmetric through the upper and lower extremities in all groups tested. Sensory intact to light touch in all extremities. Vibratory sensation is intact and symmetric all extremities. Deep tendon reflexes are symmetric at the biceps, brachioradialis, triceps, patella, and achilles bilaterally. Coordination: No dysmetria on finger to nose. No tremors noted. No drift seen. Gait normal in stance and pattern. Labs/studies: Outside labs reviewed from [facility] collected on 06/05/22: CBC N UA N CMP N with exception of low AST at 14 Assessment/Plan: G43.019 Intractable migraine without aura and without status migrainosus (primary encounter diagnosis) G44.40 Medication overuse headache Comment: At time of previous appointment pt reporting worsening of headaches. Concern for possible medication overuse as well as exacerbation by other pain syndromes. She has since reduced use of Excedrin as well as Tylenol with minimal change in symptoms. She is currently taking Topamax 50mg in AMand 100mg in PM. She has also since discontinued Lyrica due to SE and restarted gabapentin (as advised by her PCP). Headaches still occurring roughly 22 days per month. At this time will increase Topamax dose so that she is taking 100mg in both AM and PM. Note, lab work obtained from [facility] and reviewed. Given persistence of headaches will also refer to headache clinic for consideration of Botox therapy. G47.33 LETITIA (obstructive sleep apnea) E66.01, Z68.42 Class 3 severe obesity with body mass index (BMI) of 45.0 to 49.9 in adult, unspecified obesity type, unspecified whether serious comorbidity present (HCC) Comment: Pt remains compliant with PAP. Denies concerns regarding machine or mask fit. Download obtained, however, results only available until February. As noted at time of previous appointment, suspect due to outdated modem. Will again reach out to DME as pt previously had declined new machine. Per download available AHI normalized and no mask leak. Office Visit on 06/07/22 CONSULT TO [facility]HE CLINIC Tara Gillette APRN.ELECTROTYPER HELPER I spent a total of 30 minutes on the date of the service which included preparing to see the patient, [id number] patient care, completing clinical documentation, obtaining and/or reviewing separately obtained history, performing a medically appropriate examination, counseling and educating the pat ient/family/caregiver and ordering medications, tests, or procedures. documented in this encounterFairfield [facility] Center08-02-2022 Miscellaneous Notes* Addendum Note - Ivette Grimes MD - 06/05/2022 1:46 PM EDT Addended by: IVETTE GRIMES on: 06/05/2022 01:46 PM Modules accepted: Orders * Telephone Encounter - Ivette Grimes MD - 06/05/2022 1:44 PM EDT Can send lab to [facility] to be done in two weeks documented in this encounterFairfield Medical Center07-26-2022 Miscellaneous Notes* Telephone Encounter - LEVAR Jasmine - 05/29/2022 2:12 PM EDT Pt updated to get labs done through . LEVAR aJsmine * Telephone Encounter - Ivette Mejia Jr., MD - 05/29/2022 1:36 PM EDT Labs were reordered in 04/2022. Ivette Mejia MD * Telephone Encounter - LEVAR Jasmine - 05/29/2022 12:40 PM EDT In prepping for [facility] appointments on 06/07/22, pt was ordered CMP and CBC labs to be completed. Pt has not yet had this done. TC to patient to request these labs be completed before appointment on 06/07. Pt says she had CMP andCBC done at [facility] on 02/09. These are in pt chart. Pt asking if she needs to have labs redrawn or if the ones done in February are sufficient. Please advise. Thank you. LEVAR Jasmine documented in this encounterFairfield Medical Center07-21-2022 NoteHNO ID: [id number] Author: Adelina Mason APRN.ELECTROTYPER HELPER Service: ? Author Type: Nurse Practitioner Type: Progress Notes Filed: 05/24/2022 10:08 PM Note Text: [facility] Today's Date: 05/24/2022 Last Visit: 03/29/22 Name: Tori Gray : 1980 Purpose: Established Patient Encounter Interval History: Since last encounter, Tori Gray; PMH significant for LETITIA, fatty liver, DM II, anxiety, obesity; reports that the chronic problem(s) of LEFT shoulder pain are Better. Reports her ROM has started to improve since the injection, reports she continues to have relief. Prior to her injection she had intermittent numbness or her LEFT arm, primarily with activity, but feels that this is now constant. Denies new or worsening arm weakness. Patient underwent LEFT suprascapular NB on 05/10/[address] Sanchez, reports 75% relief, still having relief. Reports that the pressure in her shoulder has resolved since the injection. ROM has also improved significanty. 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 Lyrica was started at her last OV, however she could Not tolerate this and her PCP restarted her on gabapentin. - Pain Description: o Timing: constant, but worse with activity o Character: Numb and Tingling o Primary Location: LEFT shoulder o Radiation: None o Exacerbating factors: lifting o Relieving factors: unable to pinpoint positions/factors that are mitigating o Interferes with: physical activity and work o The patient denies difficulty with bowel or bladder control, unintentional weight loss and fevers, chills, or night sweats. - New Problems reported: None Recall: Patient of Dr. Sanchez Current Status: INTAKE PAIN ASSESSMENT 05/10/2022 05/24/2022 Are you having pain associated with your visit today? Yes, Provider notified Yes, Provider notified Pain Scales Verbal (Numeric Rating or Visual Analog Scale) Verbal (Numeric Rating or Visual Analog Scale) Pain Level 1 7 Pain Location (No Data) Back-Lower Description Radiating;Aching;Tingling Sore;Numbness;Tingling Duration Amount of Time - - Duration Units Years Years Frequency Continuous Continuous Intervention/Comfort measure Cold Relaxation;Reposition;Positioning;Cold Comments tens unit - Current Pain Medications: o Opioids: o NSAIDS: o Anti-depressants: o Anti-convulsants: Gabapentin 200mg BID, topamax o Muscle relaxants: Tizanidine o Others: Tylenol arthritis - Analgesia: partially adequate Current Anti-Coagulant Use: No PAST Pain Medications (for the chief complaint(s)): - NSAIDS: Motrin (Ibuprofen) - Anti-convulsants: Lyrica (Pregabalin) Compliance: Safety Checklist: - Are you taking proper precautions to safe guard your medication? Yes - Taking the medications as prescribed? Yes - Getting pain medications from another physician? No - Obtaining pain medication from another source? No - Sharing medications with friends/family? No - Quality of life improved as a result of taking these medications? Yes - Any side effect with this medication? No Justification for Continued Opioid Care: - Adequate analgesia? Yes - Aberrant drug seeking behavior? No - Adverse reactions? No - Medications improve quality of life? Yes Allergies: ALLERGIES Allergen Reactions - Lidocaine Hives - Steroids [Betametha* Hives Data Reviewed: - Reviewed personally on today's date 05/24/2022 Relevant Imaging: MRI Spine Report MRI LUMBAR SPINE WO CONTRAST Collected: 02/16/2010 8:25 AM (Final result) Complete Results MRI C-Spine 08/2021 ([facility]): Very mild degenerative changes ? MRI L-spine 11/2021 ([facility]): Very mild degenerative changes. Facet arthropathy at L1-2 through L5-S1. ? MRI Left Shoulder 10/2021 ([facility]): Small GH effusion, small degenerative change posterior-inferior labrum ? (Per Dr. Greene) MRI of the right shoulder from an outside facility is essentially normal with some minor degenerative labral fraying and a joint effusion. Electrodiagnostic Study (EMG): Recent labs: Creatinine Date Value Ref Range Status 08/12/2015 0.59 (L) 0.70 - 1.40 mg/dL Final @lastegfr(gfr)@ Glucose, Point of Care Date Value Ref Range Status 05/10/2022 104 (A) 74 - 99 mg/dL Final Comment: Location:[facility], [address] [place] [address], [place], [place], [facility] The Accu-Chek Inform II glucose meter has not been approved for testing on patients receiving intensive medical intervention or therapy and results from this point of care glucose test should not be used for patient management decisions in these cases. Inaccurate results may also occur from other interfering factors, such as N-acetylcysteine (blood concentrations of greater than 5mg/dL), galactose, extremes of hematocrit (<10 or >65), or high doses of ascorbic acid (vitamin C) greater than (more content not included)...[facility]07-21-2022 NoteHNO ID: [id number] Author: Gloria Oh MA Service: ? Author Type: Stereotyper Apprentice Type: Progress Notes Filed: 05/24/2022 10:08 PM Note Text: Review of Systems Constitutional: Negative for activity change, chills, fever and unexpected weight change. Gastrointestinal: Negative for bowel retention or incontinence Genitourinary: Negative for difficulty urinating. Negative for bladder retention or incontinence Musculoskeletal: Positive for arthralgias, back pain, myalgias, neck pain and neck stiffness. Negative for gait problem and joint swelling. Neurological: Positive for weakness and numbness. Negative for headaches. Psychiatric/Behavioral: Positive for sleep disturbance. Negative for dysphoric mood and suicidal ideas. The patient is not nervous/anxious.[facility]07-21-2022 Instructions* Patient Instructions* Adelina Mason APRN.GABRIELA - 05/24/2022 11:52 AM EDT Activity as tolerated Use Ice and/or heat as tolerated as needed documented in this encounterFairfield Medical Center07-21-2022 History of Present illness Narrative* Adelina Mason APRN.CNP - 05/24/2022 11:28 AM EDT Images from the original note were not included. [facility] Today's Date: 05/24/2022 Last Visit: 03/29/22 Name: Tori Gray : 1980 Purpose: Established Patient Encounter Interval History: Since last encounter, Tori Gray; PMH significant for LETITIA, fatty liver, DMII, anxiety, obesity; reports that the chronic problem(s) of LEFT shoulder pain are Better. Reportsher ROM has started to improve since the injection, reports she continues to have relief. Prior to her injection she had intermittent numbness or her LEFT arm, primarily with activity, but feels that this is now constant. Denies new or worsening arm weakness. Patient underwent LEFT suprascapular NB on 05/10/[address] Sanchez, reports 75% relief, still having relief. Reports that the pressure in her shoulder has resolved since the injection. ROM has also improved significanty. 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 Lyrica was started at her last OV, however she could Not tolerate this and her PCP restarted her ongabapentin. Pain Description: o Timing: constant, but worse with activity o Character: Numb and Tingling o Primary Location: LEFT shoulder o Radiation: None o Exacerbating factors: lifting o Relieving factors: unable to pinpoint positions/factors that are mitigating o Interferes with: physical activity and work o The patient denies difficulty with bowel or bladder control, unintentional weight loss and fevers, chills, or night sweats. New Problems reported: None Recall: Patient of Dr. Sanchez Current Status: INTAKE PAIN ASSESSMENT 05/10/2022 05/24/2022 Are you having pain associated with your visit today? Yes, Provider notified Yes, Provider notified Pain Scales Verbal (Numeric Rating or Visual Analog Scale) Verbal (Numeric Rating or Visual Analog Scale) Pain Level 1 7 Pain Location (No Data) Back-Lower Description Radiating;Aching;Tingling Sore;Numbness;Tingling Duration Amount of Time - - Duration Units Years Years Frequency Continuous Continuous Intervention/Comfort measure Cold Relaxation;Reposition;Positioning;Cold Comments tens unit - Current Pain Medications: o Opioids: o NSAIDS: o Anti-depressants: o Anti-convulsants: Gabapentin 200mg BID, topamax o Muscle relaxants: Tizanidine o Others: Tylenol arthritis Analgesia: partially adequate Current Anti-Coagulant Use: No PAST Pain Medications (for the chief complaint(s)): NSAIDS: Motrin (Ibuprofen) Anti-convulsants: Lyrica (Pregabalin) Compliance: Safety Checklist: Are you taking proper precautions to safe guard your medication? Yes Taking the medications as prescribed? Yes Getting pain medications from another physician? No Obtaining pain medication from another source? No Sharing medications with friends/family? No Quality of life improved as a result of taking these medications? Yes Any side effect with this medication? No Justification for Continued Opioid Care: Adequate analgesia? Yes Aberrant drug seeking behavior? No Adverse reactions? No Medications improve quality of life? Yes Allergies: ALLERGIES Allergen Reactions Lidocaine Hives Steroids [Betametha* Hives Data Reviewed: Reviewed personally on today's date 05/24/2022 Relevant Imaging: MRI Spine Report MRI LUMBAR SPINE WO CONTRAST Collected: 02/16/2010 8:25 AM (Final result) Complete Results MRI C-Spine 08/2021 ([facility]): Very mild degenerative changes MRI L-spine 11/2021 ([facility]): Very mild degenerative changes. Facet arthropathy at L1-2 through L5-S1. MRI Left Shoulder 10/2021 ([facility]): Small GH effusion, small degenerative change posterior-inferior labrum (Per Dr. Greene) MRI of the right shoulder from an outside facility is essentially normal with someminor degenerative labral fraying and a joint effusion. Electrodiagnostic Study (EMG): Recent labs: Creatinine Date Value Ref Range Status 08/12/2015 0.59 (L) 0.70 - 1.40 mg/dL Final @lastegfr(gfr)@ Glucose, Point of Care Date Value Ref Range Status 05/10/2022 104 (A) 74 - 99 mg/dL Final Comment: Location:[facility], [address] [place] [address], [facility] The Accu-Chek Inform II glucose meter has not been approved for testing on patients receiving intensive medical intervention or therapy and results from this point of care glucose test should not be used for patient management decisions in these cases. Inaccurate results may also occur from other interfering factors, such as N-acetylcysteine (blood concentrations of greater than 5mg/dL), galactose, extremes of hematocrit (<10 or >65), or high doses of ascorbic acid (vitamin C) greater than 3mg/dL. Consider alternate testing mechanisms (e.g. core lab, blood gas instrument) in the above situations. Pain Procedures: DATE PROCEDURE IMPROVEMENT 05/09/22 LEFT suprascapular NB 75% Compliance: PDMP website checked and validated. All prescriptions have been APPROPRIATELY filled. No suspiciousactivity was identified. 05/24/2022 by Adelina Mason APRN.ELECTROTYPER HELPER Last Drug screen: Not Applicable Risk Assessment: VAHE-7: VAHE - 7 SCORES 03/29/2022 VAHE-7 Score 0 (0-4) minimal anxiety, (5-9) mild anxiety, (10-14) moderate anxiety, (15-21) severe anxiety PHQ-9: PHQ-9 05/16/2017 07/29/2020 03/29/2022 Score 8 2 2 (0-4) minimal depression, (5-9) mild depression, (10-14) moderate depression, (15-19) moderately severe depression, (20-27) severe depression Current Medications, Past Medical History, Past Surgical History, Family History, Social History and Review of Systems: On today's date, 05/24/2022, noted above, I have confirmed and edited as necessary, the PFSH and ROS obtained by others. Physical Exam: 05/24/22 1101 Pulse: 78 Resp: 18 SpO2: 98% Constitutional: morbidly obese HEENT: Normal Cephalic, Atraumatic, Non-icteric sclera Eyes: Conjunctiva clear. No discharge from eyes Cardiovascular: Appears well perfused Lymphatic: No visible regional lymphadenopathy Skin: No visible rashes or ecchymosis Psychiatric: Full affect, Alert, Pleasant LEFT Shoulder: Inspection: ? No edema, effusion, erythema, warmth ? No scapular winging ? No muscle atrophies Palpation: ? No tenderness to palpation at: Upper Trapezius, Middle Trapezius, Cervical paraspinals, Thoracic paraspinals ? No tenderness to palpation at: Bicipital groove, Acromioclavicular (AC) joint, Supraspinatus insertion Active Range of Motion: ? Normal Scapulothoracic rhythm. ? Full and non-painful range of motion for flexion, extension, abduction, internal and external rotation Passive Range of Motion: ? Full and non-painful range for flexion, extension, abduction, internal and external rotation Special Tests: Non-painful (negative) ZacEm, Alexandra's, O'Brjeannette, Ravi's Diagnoses: (M25.512, G89.29) Chronic left shoulder pain (primary encounter diagnosis) (M75.02) Adhesive capsulitis of left shoulder (M19.012) Primary osteoarthritis of left shoulder (M79.18) Myofascial pain Impression & Plan: 41 year old female with significant past medical history for LETITIA, fatty liver, DM II, anxiety, obesity, who presents with complaint(s) of LEFT shoulder pain. Reports her symptoms are improving. She was not able to tolerate the Lyrica, she resumed the gabapentin by her PCP. She reports 75% relief with the LEFT suprascapular. She reports the most improvement has been with her ROM. She is very pleased. She now has mostly numbness in this area. 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 Tori Gray would benefit from the following to decrease pain, improve function and/or work participation, and improve quality of life: Medications: Refill: Continue gabapentin as directed Continue Tizanidine as needed Continue Topamax as directed No medications selected for refill. UDS, NAOIC/ORT: up to date Functional Quaker: Physical Therapy (Land-based) Additional Studies: None Referrals: None Additional: Consider LEFT suprascapular RFA if NB wears off vs plateau with therapy. She is very pleased with how she responded to the nerve block. She continues to have relief today. She is looking forward to trying therapy. She would like to try therapy and monitor her response. Patient is happy and agreeable with this plan. All questions were answered and patient verbalized understanding. Depending on response to the above plan, consider: See above Follow-up: 6-8 weeks for evaluation of response to treatment plan and optimization Attribution: In addition to reviewing the information noted above, some elements copied from my most recent clinical note(s), including the physical exam (completed in entirety today), and the impression and plan sections, have been updated where appropriate. All reflect current medical decision making from today's date. dAelina Mason APRN.GABRIELA Pain Management [facility] * Gloria Oh MA - 05/24/2022 11:00 AM EDT Review of Systems Constitutional: Negative for activity change, chills, fever and unexpected weight change. Gastrointestinal: Negative for bowel retention or incontinence Genitourinary: Negative for difficulty urinating. Negative for bladder retention or incontinence Musculoskeletal: Positive for arthralgias, back pain, myalgias, neck pain and neck stiffness. Negative for gait problem and joint swelling. Neurological: Positive for weakness and numbness. Negative for headaches. Psychiatric/Behavioral: Positive for sleep disturbance. Negative for dysphoric mood and suicidal ideas. The patient is not nervous/anxious. documented in this encounterFairfield Medical Center07-08-2022 Miscellaneous Notes* Telephone Encounter - Livia Luna - 05/11/2022 3:17 PM EDT Left brief message asking patient to call back with any questions or concerns about a recent appointment. Livia Luna LPN May 11, 2022 3:18 PM documented in this encounterFairfield Medical Center07-07-2022 NoteHNO ID: [id number] Author: Mirna Lanza LPN Service: ? Author Type: LICENSED NURSE Type: Progress Notes Filed: 05/10/2022 11:04 AM Note Text: Review of Systems Constitutional: Negative for activity change, chills, fever and unexpected weight change. Gastrointestinal: Negative for bowel retention or incontinence Genitourinary: Negative for difficulty urinating. Negative for bladder retention or incontinence Musculoskeletal: Positive for arthralgias, back pain, myalgias, neck pain and neck stiffness. Negative for gait problem and joint swelling. Neurological: Positive for numbness. Negative for weakness and headaches. Psychiatric/Behavioral: Positive for sleep disturbance. Negative for dysphoric mood and suicidal ideas. The patient is not nervous/anxious.[facility]07-07-2022 Nurse Note* Mirna Lanza LPN - 05/10/2022 10:53 AM EDT Order has been placed in the patient's chart with the following parameters for discharge from the physician: Patient is alert and oriented Vitals: Diastolic/Systolic +/- 20mmHg Respirations: 12-18 Pulse: 60-100 SpO2 is greater than or equal to 90% Patient has no nausea or vomiting Patient has no dizziness Pain level is +/- 2 from initial evaluation Dressing, dry and intact with no evidence of bleeding Criteria has been met, patient is okay to be discharged per the physician. Physician has gone in and evaluated the patient. Dressing dry and intact. No drainage noted. The patient denies nausea, numbness, tingling, weakness, shortness of breath, dizziness, or headache. Pain level 0/10. Vital signs within normal limits. Patient denied needing walked out by clinical staff and denied needing a wheelchair. Patient given discharge instructions and sent to transportation via ambulatory method. Patient left in good condition. * Livia Luna - 05/10/2022 10:32 AM EDT Procedure to be performed: Left Suprascapular Nerve Block Patient was wheeled on stretcher from pre op bay to procedure room and assisted onto the procedure tablePatient s procedure was performed in an [facility] Procedure room. Pause completed at each level by provider to verify correct level and laterality placement Pressure was applied to patient s injection site(s) and bleeding was minimal. Patient had no complaint of shortness of breath, dizziness, headache, numbness, tingling, weakness or complications from procedure. Patient was assisted from the procedure table onto the stretcher and wheeled into a post op bay. Patient was advised a clinician will be to obtain another set of vitals. Time Out: 1046 Confirmed patient name, date of , procedure site, laterality, and allergies Procedure Start: 1049 Procedure End: 1052 * Mirna Lanza LPN - 05/10/2022 10:03 AM EDT Tree Faller's Name: Marilynn Are you on a blood thinner: n If yes, is a hold required: n Last dose of blood thinner: n INR Result today: n Do you require a Lovenox bridge:n Are you a diabetic:y-BS 104 Are you/or could you be : n Are you taking Xanax for the procedure: n Are you currently on a steroid? n Are you currently on an antibiotic: n Have you had a COVID-19 vaccine in the last 14 days Or are you scheduled to receive one? n documented in this encounterFairfield Medical Center07-07-2022 Instructions* Patient Instructions* Mirna Lanza LPN - 05/10/2022 10:51 AM EDT PROCEDURE DISCHARGE INSTRUCTIONS 05/10/2022 Tori Gray 1980 Physician: Elle Sanchez MD Procedure: Other: LEFT SUPRASCAPULAR NERVE BLOCK Post Procedure Instructions: If sedation not given, no driving for 3 hours after the procedure., Rest the day of the procedure.,You may resume normal activities the day after the procedure, as tolerated., Apply cold compresses to injection site if needed., If medically acceptable, take over the counter anti-inflammatories such as ibuprofen or Aleve if needed for post procedure discomfort. and No hot baths, hot tubs or hot compresses for 24 hours. If you have any of the following signs or symptoms, please call our office at Fever and/or chills Swelling and/or drainage from injection site New pain that is different than your normal pain (other than soreness at the site of the procedure) Stiff neck Shortness of breath Severe increase in pain Motor dysfunctions, such as difficulty walking, bowel or bladder dysfunction and/or incontinence Headache that is severe, light sensitive or develops when changing positions (positional headache) Nausea and/or vomiting accompanied by headache that started 24-48 hours after the procedure If you have any emergent concerns, please call 911 or go to your local emergency room. Please also contact our office to let us know you will be seeking emergency care and why. documented in this [facility]22 NoteHNO ID: [id number] Author: Elle Sanchez MD Service: ? Author Type: Physician Type: Progress Notes Filed: 05/10/2022 11:04 AM Note Text: [facility] Patient name: Tori Gray Date of : 1980 Today's date: 05/10/2022 Purpose: Ultrasound-guided injection Diagnosis: (M75.02) Adhesive capsulitis of left shoulder (primary encounter diagnosis) (M19.012) Primary osteoarthritis of left shoulder Procedure: Left Shoulder/Chest Suprascapular Nerve Block Market Research Executive: Elle Sanchez M.D., M.B.A Comments: Allergy Due to the patient's reported history of allergy to Lidocaine, the following medication was substituted: Bupivacaine. Notes from Pulp Machine Operator 01/2020 reviewed, she had skin testing to multiple local anesthetics and steroids, without any reaction, but advised that she avoid Lidocaine where possible due to unknown negative predictive value of the tests. Other anesthetics had been used with other procedures that did not have a reaction (eg Bupivacaine). [facility] protocol documentation / Pre-Procedure Checklist: ? ID verified by two sources: Name and ? Site(s) marked: yes ? Position: as per procedure note ? Consent: obtained verbally prior to procedure ? Allergies reviewed and verified with patient: yes ? Recent History and Physical: available ? Relevant images: available ? Surgical/Procedure pause: yes ? Other pre-procedural information: given ? Patient concurs: yes ? Team present and concurs: yes Static views were obtained using a 2-6 Hz curvilinear probe After identifying the region mentioned above, the patient was positioned seated. The area was prepped in aseptic fashion with Chloraprep. Doppler imaging was utilized to verify no major vessels in the anticipated needle trajectory. A 25gauge, 3.5inch needle was directed into the above-mentioned target area utilizing real-time ultrasound guidance. The injection was completed under real-time ultrasound guidance, with the following medication injected slowly and with consistent pressure: 5cc of 0.75% Bupivacaine. The injected medication was visualized in its intended position. Where appropriate, there was distention of the involved joint and/or bursa. The needle was then removed. The remainder of the single use vials were wasted. The patient tolerated the procedure without difficulty and was instructed on post-injection care. Pre- and post-injection pictures, as well as pictures of any relevant findings, were obtained and saved for purposes of documentation. Patient was advised to watch for any signs of infection in the area of the injection (redness, streaky appearance of skin, etc.) and call the office immediately for treatment if those symptoms develop. The patient was instructed to follow-up with the requesting physician. Elle COOKA Pain Management [facility] 05-10-2022 History of Present illness Narrative* Mirna Lanza LPN - 05/10/2022 10:16 AM EDT Review of Systems Constitutional: Negative for activity change, chills, fever and unexpected weight change. Gastrointestinal: Negative for bowel retention or incontinence Genitourinary: Negative for difficulty urinating. Negative for bladder retention or incontinence Musculoskeletal: Positive for arthralgias, back pain, myalgias, neck pain and neck stiffness. Negative for gait problem and joint swelling. Neurological: Positive for numbness. Negative for weakness and headaches. Psychiatric/Behavioral: Positive for sleep disturbance. Negative for dysphoric mood and suicidal ideas. The patient is not nervous/anxious. * Elle Sanchez MD - 05/10/2022 8:23 AM EDT [facility] Patient name: Tori Gray Date of : 1980 Today's date: 05/10/2022 Purpose: Ultrasound-guided injection Diagnosis: (M75.02) Adhesive capsulitis of left shoulder (primary encounter diagnosis) (M19.012) Primary osteoarthritis of left shoulder Procedure: Left Shoulder/Chest Suprascapular Nerve Block Market Research Executive: Elle Sanchez M.D., M.B.A Comments: Allergy Due to the patient's reported history of allergy to Lidocaine, the following medication was substituted: Bupivacaine. Notes from Pulp Machine Operator 01/2020 reviewed, she had skin testing to multiple local anesthetics and steroids, without any reaction, but advised that she avoid Lidocaine where possible due to unknown negative predictive value of the tests. Other anesthetics had been usedwith other procedures that did not have a reaction (eg Bupivacaine). [facility] protocol documentation / Pre-Procedure Checklist: ID verified by two sources: Name and Site(s) marked: yes Position: as per procedure note Consent: obtained verbally prior to procedure Allergies reviewed and verified with patient: yes Recent History and Physical: available Relevant images: available Surgical/Procedure pause: yes Other pre-procedural information: given Patient concurs: yes Team present and concurs: yes Static views were obtained using a 2-6 Hz curvilinear probe After identifying the region mentioned above, the patient was positioned seated. The area was prepped in aseptic fashion with Chloraprep. Doppler imaging was utilized to verify no major vessels in the anticipated needle trajectory. A 25gauge, 3.5inch needle was directed into the above-mentioned target area utilizing real-time ultrasound guidance. The injection was completed under real- time ultrasound guidance, with the following medication injected slowly and with consistent pressure: 5cc of 0.75% Bupivacaine. The injected medication was visualized in its intended position. Where appropriate,there was distention of the involved joint and/or bursa. The needle was then removed. The remainderof the single use vials were wasted. The patient tolerated the procedure without difficulty and was instructed on post-injection care. Pre- and post-injection pictures, as well as pictures of any relevant findings, were obtained and saved for purposes of documentation. Patient was advised to watch for any signs of infection in the area of the injection (redness, streaky appearance of skin, etc.) and call the office immediately for treatment if those symptoms develop. The patient was instructed to follow-up with the requesting physician. Elle Sanchez MD, MBA Pain Management [facility] documented in this encounterFair[facility] Center07-05-2022 Miscellaneous Notes* Telephone Encounter - Lubna Yoon LPN - 05/08/2022 1:04 PM EDT Sent a [employer] message * Telephone Encounter - Ivette Grimes MD - 05/08/2022 12:56 PM EDT I would recommend she follow up and see one of us here. documented in this encounterFairfield [facility] Center06-30-2022 Miscellaneous Notes* Telephone Encounter - Jumana Harrell LPN - 05/03/2022 2:14 PM EDT Patient phones requesting refills as follows: Pending Prescriptions Disp Refills ALBUTEROL SULFATE HFA 90 MCG/ACTUATION AEROSOL INHALER 18 g 6 Sig: Inhale 2 Puffs as instructed every 4 hours as needed for wheezing/shortness of breath. CRISTINA: No APRIL-05/01/22 Labs-02/07/22 NOV-08/02/22 med filled 02/03/21 Please review and advise. Jumana Harrell LPN documented in this encounterFairfield [facility] Center06-28-2022 Instructions* Patient Instructions* Ivette Grimes MD - 05/01/2022 3:22 PM EDT Change lyrica to every other day for three days then stop. Then start gabapentin one tab at bedtime for three days. Then one tab twice a day for three days Then one tab in am and two at night for three days. Then 2 tabs twice a day. documented in this encounterFairfield [facility] Center06-28-2022 History of Present illness Narrative* Ivette Grimes MD - 05/01/2022 2:47 PM EDT Patient presents with: Follow Up: shoulder pain, switch medication back to gabapentin HPI: Patient presents today for office visit for follow up. CARDIO / RESPIRATORY: Patient mentioned cough started 04/26/22. Patient still presents with intermittent dry cough Patient mentioned SOB when cough started. No longer having SOB Chest pain with SOB. No chest pain at presentation. Wheezing over the week. No wheezing today. No palpitations. No heartburn. No sputum production today. Patient mentions greenish sputum production yersterday Patient states she did left over bronchitis medication on 04/29 & 04/30. None today. Patient mentions is improving No difficulty swallowing COVID test (-) at home. 04/27/22 DM: Checks sugar once a week. Averages 80. Recent Hgb A1c stable at 5.1 Tolerating diabetic medications well. YUAN: Patient states slight improvement with headaches. Recently increased topiramate at HS A few weeks ago, patient was headache free. Due to recent illness like episode, headaches started again again. one headache a day on average Chronic pain: seeing pain management Nerve block next week Recently changed Gabapentin to Lyrica (03/29/22) Patient not tolerating lyrica well. Patient states mood changes and also ineffective for nerve pain Has been tapering lyrica down. Patient is requesting GASTROENTEROLOGY consult because she thought she was having liver issues however it is on the wrong side. Left flank pain last few weeks. No difficulty voiding. No burning with voiding Patient mentions hx of kidney stones Pain localized Tender to touch No nausea or vomiting. No diarrhea or constipation. No heartburn. No bloody or black stools. No new urinary issues. MEDICATIONS: Current Outpatient Medications Medication Sig topiramate (TOPAMAX) 50 mg tablet One tab daily tiZANidine (ZANAFLEX) 4 mg tablet Take 1 tablet by mouth every 8 hours as needed. CPAP Modem possibly not working. Downloads ceased last month. Please check device. pregabalin (LYRICA) 75 mg capsule Take one pill at night for one week, then add one pill in the morning for one week, then take on pill 3 times per day thereafter fexofenadine (ALMA ALLERGY) 180 mg tablet Take 1 tablet by mouth once daily. omeprazole (PRILOSEC) 20 mg capsule Take 1 capsule by mouth daily before breakfast. 1/2 hr before meal. lisinopril (ZESTRIL, PRINIVIL) 5 mg tablet Take 1 tablet by mouth once daily. dulaglutide (TRULICITY) 0.75 mg/0.5 mL pen injector Inject 0.75 mg subcutaneously one time a week. Inject dose once per week. Discard Pen After levonorgestrel (KYLEENA) 17.5 mcg/24 hrs (5 yrs) 19.5 mg IUD 1 Each by INTRAUTERINE route as directed. albuterol HFA (VENTOLIN HFA) 90 mcg/actuation inhaler Inhale 2 Puffs as instructed every 4 hours asneeded for Wheezing/Shortness of Breath. CPAP Please fit with a Dreamwear under nose FFM. Patient with sore on bridge of nose and difficulties moving in bed with current PAP mask. Ipratropium [place] (ATROVENT) 0.03 % nasal spray Use 2 Sprays in the nose every 12 hours. metroNIDAZOLE (METROGEL) 0.75 % Topical Gel Apply to affected area twice daily. blood sugar diagnostic (BLOOD GLUCOSE TEST) test strip Test blood sugar(s) 1 times daily. Dx: Type 2 DM - Controlled E11.9 Insulin: Yes Lancets lancets Test blood sugar(s) 1 times daily. Dx: Type 2 DM - Controlled E11.9 Insulin: No Wrobgvrs-Nd-Qst-Fe-FA ( FORMULA) ORAL Tab Take 1 tablet by mouth once daily. Herrick-3 Fatty Acids (FISH OIL) 500 mg cap Take 1 capsule by mouth once daily. No current facility-administered medications for this visit. ALLERGIES: ALLERGIES Allergen Reactions Lidocaine Hives Steroids [Betametha* Hives PAST MEDICAL HISTORY Diagnosis Date Acute cholecystitis Cholecystitis Anxiety 06/07/2014 Type 2 diabetes mellitus (HCC) PAST SURGICAL HISTORY Procedure Laterality Date DELIVERY ONLY 2006 , low cervical INSERT INTRAUTERINE DEVICE 10/19/08 mirena LAPAROSCOPY SURG CHOLECYSTECTOMY 2006 Cholecystectomy, lap (Rowena Monet) PAST SURGICAL HISTORY OF 2019 stent into kidney REMOVE IUD 07/13/2010 FAMILY HISTORY Problem Relation Age of Onset Alcohol/Drug Mother Heart Father [place] Cancer Father PANCREATIC CANCER Diabetes Father Diabetes Maternal Grandfather Cancer Maternal Grandmother LUNG CANCER Heart Paternal Grandmother TRIPLE BYPASS SURGERY Social History Tobacco Use Smoking status: Never Smoker Smokeless tobacco: Never Used Vaping Use Vaping Use: Never used Substance Use Topics Alcohol use: No Drug use: No Reviewed current medications, allergies, past medical history, surgical history, family history andsocial history today. REVIEW OF SYSTEMS All other reviewed and negative other than HPI. VITALS: BP 132/80 Pulse 68 Resp 18 Wt 118.4 kg (261 lb) LMP 04/07/2022 (Exact Date) SpO2 98% BMI 40.88 kg/m Last 4 Encounter Wt Readings: Date: Wt: 05/01/2022 118.4 kg (261 lb) 04/09/2022 122.2 kg (269 lb 6.4 oz) 02/28/2022 120.7 kg (266 lb) 01/25/2022 119.7 kg (264 lb) PHYSICAL EXAMINATION: General appearance: Well appearing, alert, in no acute distress, well-hydrated, well nourished. Skin: Skin color, texture, turgor normal, no suspicious rashes or lesions Chest. Tender over left lower rib cage Lungs: Lungs clear to auscultation. No wheezing, rhonchi, rales Heart: RRR without murmur, gallop, or rubs. No ectopy Abdomen: Normal abdominal exam, Abdomen soft, non-tender. Bowel sounds normal. No masses, organomegaly Extremities: No deformities, edema, skin discoloration, clubbing or cyanosis. Good capillary refill. Musculoskeletal: No joint swelling, deformity, or tenderness Peripheral pulses: Normal Neuro: Gait normal. Reflexes normal and symmetric. Sensation grossly intact. ASSESSMENT/PLAN: 1. Microalbuminuria - ICD9: 791.0, ICD10: R80.9 (primary diagnosis) - continue to follow. 2. Anxiety - ICD9: 300.00, ICD10: F41.9 - stable. 3. Type 2 diabetes mellitus with microalbuminuria, with long-term current use of insulin (HCC) - ICD9: 250.40, 791.0, V58.67, ICD10: E11.29, R80.9, Z79.4 Controlled. - Continue current medications 4. Fatty liver - ICD9: 571.8, ICD10: K76.0 - continue to work on weight. 5. LETITIA (obstructive sleep apnea) - ICD9: 327.23, ICD10: G47.33 -per sleep med 6. Lumbar herniated disc - ICD9: 722.10, ICD10: M51.26 - taper and stop lyrica due to side effects. Resume gabapentin. - GABAPENTIN 100 MG CAPSULE 7. 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 Spinal stenosis of thoracolumbar region - ICD9: 724.01, ICD10: M48.05 - GABAPENTIN 100 MG CAPSULE 9. Pain of left upper extremity - ICD9: 729.5, ICD10: M79.602 - GABAPENTIN 100 MG CAPSULE 10. Rib pain - ICD9: 786.50, ICD10: R07.81 - can consider xray if persists. - Red flags for re-assessment reviewed with patient in detail. - XR RIBS/CHEST 3V AP RIB/OBLS/CXR LEFT Ivette James Sydney RTO in three months and prn. documented in this encounterFair[facility] Center06-16-2022 Miscellaneous Notes* Addendum Note - Ivette Grimes MD - 04/19/2022 2:41 PM EDT Addended by: IVETTE GRIMES on: 04/19/2022 02:41 PM Modules accepted: Orders documented in this encounterFairfield [facility] Center06-13-2022 Miscellaneous Notes* Telephone Encounter - Ivette Mejia Jr., MD - 04/16/2022 6:04 PM EDT Please contact DME ([facility] [place]) to determine if pt qualifies for new PAP device. If so, can order a new AutoBilevel PAP. Thank you, Ivette Mejia MD documented in this encounterFairfield Medical Center06-13-2022 Miscellaneous Notes* Telephone Encounter - Quinn Lazo LPN - 04/16/2022 10:28 AM EDT Patient phones requesting refills as follows: Pending Prescriptions Disp Refills TIZANIDINE 4 MG TABLET 20 tablet 0 Sig: Take 1 tablet by mouth every 8 hours as needed. CRISTINA: No APRIL 02/28/22 NOV 05/01/22 Please review and advise. Quinn Lazo LPN documented in this encounterFairfield [facility] Center06-06-2022 Instructions* Patient Instructions* Ivette Mejia Jr., MD - 04/09/2022 4:15 PM EDT 1. Increase Topamax to 50mg in the AM and 100mg in PM. Continue. If after 1 week, headaches persist, then see #2. 2. If headaches persist after #1, then increase Lyrica to 75mg BID. 3. Please call or message us after 3 weeks for an update. At that time will also consider botox therapy. 4. Please reduce Excedrin and Tylenol use. documented in this encounterFairfield [facility] Center06-06-2022 History of Present illness Narrative* Ivette Mejia Jr., MD - 04/09/2022 3:53 PM EDT ESTABLISHED PATIENT VISIT CHIEF COMPLAINT: Follow Up - worsening headaches. HISTORY OF PRESENT ILLNESS: Tori Gray is a 41 year old female, BMI 42.19 kg/m2 with a PMH significant for and per last office visit of 08/01/2020: 1. LETITIA (obstructive sleep apnea) - ICD9: 327.23, ICD10: G47.33 (primary diagnosis) 2. Class 3 severe obesity with body mass index (BMI) of 45.0 to 49.9 in adult, unspecified obesity type, unspecified whether serious comorbidity present (HCC) - ICD9: 278.01, V85.42, ICD10: E66.01, Z68.42 Patient with known history of moderate LETITIA as above, well controlled on bilevel therapy based on PAP download. Likely contributing factors for LETITIA include obesity and crowded airway. No issues with pressure or machine, and thus will make no changes to setting today. However, some complaints regarding mask as above, and reviewed with patient mask options during this visit. At conclusion, she wouldlike to try a dream wear under the nose ffm to see if this resolves mask issues. Rx sent to [facility]. During visit, discussed with patient: the physiology of OSAS, medical conditions associated with OSAS (DM, HTN, CAD, Depression, Stroke, Headache...) and treatment options (UPPP, Dental appliances, CPAP...). Advised patient to avoid activities that could harm self or others when tired/sleepy, including driving and/or operating heavy machinery. Encouraged weight loss, and continued compliance with other medications. Advised of PAP risk and precautions in setting of COVID19. 3. Migraine without aura and without status migrainosus, not intractable - ICD9: 346.10, ICD10: G43.009 Overall well controlled on Tpx 25mg BID. Requested prior records to confirm negative workup for other etiology of headaches. Patient aware of renal stone risk with Tpx, but would like to continue. SEand ADRs reviewed with patient. Rx provided to continue 25mg BID. As only having 1-2 headache days per month, ok with her continuing Excedrin as abortive. If headaches become more frequent should contact us ANNIE. Again, patient cannot tolerate steroids with side effects. It appears during interim, Topamax was increased to 50mg BID. PAP data download shows 52/ days use with no use throughout March and April of this year. Avg use when using was 8 hours and 49 minutes. Set at max IPAP 20, Min EPAP 12 and PS of 6 cmH2O. AHI was 0.2.95% leak was 2.8 LPM. Patient states headaches have been worse in the last year that she felt was due to a left shoulder injury that she feels is not improving. Has seen ortho and pain mgmt with unremarkable workup. Scheduled for a nerve block. States migraines were not bad until the shoulder injury. A few months ago was added on gabapentin and then Lyrica a couple weeks ago - she has noticed no improvement with either except feeling tired. Headaches are daily. States does not miss Topamax dosing. However, also taking Excedrin everyday (until today) -- sometimes taking more than twice per day. Note that the increase in Excedrin started around the time of the shoulder injury. Pt cannot get steroids. Pain is either selene frontal but a lot of times in the back of neck - right above shoulder blade is where my should hurts and radiates up into my neck. MRI C spine on 01/02/22 was essentially unremarkable. Pain mostprominent when awake. No renal stones. States uses PAP nightly. Question if download absence above due to 5G issues with modem. Will contact DME. Using nightly. No issues with the pressure and mask. No auras. Never on a triptan. Besides Excedrin, taking Tylenol PM near nightly for pain that can keep her awake. REVIEW OF SYSTEMS GENERAL:No weight loss, malaise or fevers. HEENT:, No changes in hearing or vision, no nose bleeds or other nasal problems NECK:Negative for lumps, goiter, pain and significant neck swelling RESPIRATORY: Negative for cough, wheezing or shortness of breath. CARDIOVASCULAR: Negative for chest pain, leg swelling or palpitations. GASTROINTESTINAL: Negative for abdominal discomfort, blood in stools or black stools or change in bowel habits GENITOURINARY: No history of dysuria, frequency or incontinence MUSCULOSKELETAL: Negative for joint pain or swelling, back pain or muscle pain. NEUROLOGIC:Negative for focal numbness or weakness, and dizziness or syncope, vision changes, speech/languag changes - EXCEPT that as per HPI above. SKIN:Negative for lesions, rash, and itching. LAB/IMAGING: Those performed since patient's last visit have been reviewed. WBC (K/uL) Date Value 01/12/2021 9.0 RBC (M/uL) Date Value 01/12/2021 4.86 Hemoglobin (g/dL) Date Value 08/12/2015 13.4 HCT (%) Date Value 01/12/2021 42.6 MCV (fL) Date Value 01/12/2021 87.7 MCH (pg) Date Value 01/12/2021 28.4 MCHC (g/dL) Date Value 01/12/2021 32.4 RDW-CV (%) Date Value 08/12/2015 13.1 PLT (K/uL) Date Value 01/12/2021 217 MPV (fL) Date Value 01/12/2021 9.5 Glucose (mg/dL) Date Value 08/12/2015 93 BUN (mg/dL) Date Value 08/12/2015 9 Creatinine (mg/dL) Date Value 08/12/2015 0.59 (L) Sodium (mmol/L) Date Value 08/12/2015 136 Potassium (mmol/L) Date Value 08/12/2015 3.9 Chloride (mmol/L) Date Value 08/12/2015 97 (L) CO2 (mmol/L) Date Value 08/12/2015 25 Protein, Total (g/dL) Date Value 08/12/2015 7.3 Albumin (g/dL) Date Value 08/12/2015 4.3 Calcium (mg/dL) Date Value 08/12/2015 9.0 Alkaline Phosphatase (U/L) Date Value 08/12/2015 62 Bilirubin, Total (mg/dL) Date Value 08/12/2015 0.6 AST (U/L) Date Value 08/12/2015 23 ALT (U/L) Date Value 08/12/2015 26 Hep C Antibody IA (no units) Date Value 12/19/2012 Negative MEDICATIONS: topiramate (TOPAMAX) 50 mg tablet Take 1 tablet by mouth twice daily. tiZANidine (ZANAFLEX) 4 mg tablet Take 1 tablet by mouth every 8 hours as needed. pregabalin (LYRICA) 75 mg capsule Take one pill at night for one week, then add one pill in the morning for one week, then take on pill 3 times per day thereafter fexofenadine (ALMA ALLERGY) 180 mg tablet Take 1 tablet by mouth once daily. omeprazole (PRILOSEC) 20 mg capsule Take 1 capsule by mouth daily before breakfast. 1/2 hr before meal. lisinopril (ZESTRIL, PRINIVIL) 5 mg tablet Take 1 tablet by mouth once daily. dulaglutide (TRULICITY) 0.75 mg/0.5 mL pen injector Inject 0.75 mg subcutaneously one time a week. Inject dose once per week. Discard Pen After levonorgestrel (KYLEENA) 17.5 mcg/24 hrs (5 yrs) 19.5 mg IUD 1 Each by INTRAUTERINE route as directed. albuterol HFA (VENTOLIN HFA) 90 mcg/actuation inhaler Inhale 2 Puffs as instructed every 4 hours asneeded for Wheezing/Shortness of Breath. CPAP Please fit with a Dreamwear under nose FFM. Patient with sore on bridge of nose and difficulties moving in bed with current PAP mask. Ipratropium [place] (ATROVENT) 0.03 % nasal spray Use 2 Sprays in the nose every 12 hours. blood sugar diagnostic (BLOOD GLUCOSE TEST) test strip Test blood sugar(s) 1 times daily. Dx: Type 2 DM - Controlled E11.9 Insulin: Yes Lancets lancets Test blood sugar(s) 1 times daily. Dx: Type 2 DM - Controlled E11.9 Insulin: No Yvzczyvk-Or-Nzm-Fe-FA ( FORMULA) ORAL Tab Take 1 tablet by mouth once daily. metroNIDAZOLE (METROGEL) 0.75 % Topical Gel Apply to affected area twice daily. Herrick-3 Fatty Acids (FISH OIL) 500 mg cap Take 1 capsule by mouth once daily. HISTORIES PAST MEDICAL HISTORY Diagnosis Date Acute cholecystitis Cholecystitis Anxiety 06/07/2014 Type 2 diabetes mellitus (HCC) FAMILY HISTORY Problem Relation Age of Onset Alcohol/Drug Mother Heart Father [place] Cancer Father PANCREATIC CANCER Diabetes Father Diabetes Maternal Grandfather Cancer Maternal Grandmother LUNG CANCER Heart Paternal Grandmother TRIPLE BYPASS SURGERY SOCIAL HISTORY Social History Tobacco Use Smoking status: Never Smoker Smokeless tobacco: Never Used Vaping Use Vaping Use: Never used Substance Use Topics Alcohol use: No Drug use: No PHYSICAL EXAMINATION BP 138/72 Pulse 74 Temp 36.4 C (97.5 F) Resp 18 Wt 122.2 kg (269 lb 6.4 oz) LMP 04/07/2022 (Exact Date) SpO2 97% BMI 42.19 kg/m GENERAL EXAM: General appearance: NAD, pleasant. HEENT: NC/AT, nasal congestion absent, no oral lesions, membranes moist. NECK: ROM nml. Lungs: CTA bilaterally. CV: RRR nl S1, S2 Extr: No cyanosis, clubbing or edema. Skin: Cool to touch. NEUROLOGICAL EXAM: General: Awake, alert, oriented x3 (person,place,time), speech fluent, no dysarthria; comprehension, naming, repetition intact. Fund of knowledge grossly zainab. CN: PERRL, fundi with no evidence of papilledema, EOMI and without nystagmus, VFF to confrontation,facial sensation and strength are normal and symmetric, hearing is intact to finger rub bilaterally, palate and tongue movements are intact and symmetric. SCM and trapezius strength normal. Motor: Normal tone, bulk and strength (5/5) bilaterally (throughout extremities x4). Reflexes: 2/4 and symmetric, plantar stimulation is flexor. Coordination: FNF, LYUDMILA intact. No tremors. Sensation: Light touch intact throughout. No evidence of neglect. Gait: Stable with normal stride and arm swing. Assessment and Plan: ASSESSMENT/PLAN: 1. Intractable migraine without aura and without status migrainosus - ICD9: 346.11, ICD10: G43.019 (primary diagnosis) 2. Medication overuse headache - ICD9: 339.3, ICD10: G44.40 Worsening headaches over past months, of which definite provoking factor unknown but suspect exacerbated by other pain syndromes as well as medication overuse (tyelnol and excedrin). Encouraged pt toreduce if not stop OTC meds. Will increase Topamx to 50mg QAM and 100mg PM - reviewed SE and ADRs. If no improvement will then attempt to increase Lyrica dose as well (see pt instructions). If still no improvement may refer for botox therapy. Note pt cannot take steroids due to allergy. Would avoidtriptans given history of elevated BP. Check CMP and CBC due to intermission coordinator med use. 3. LETITIA (obstructive sleep apnea) - ICD9: 327.23, ICD10: G47.33 4. Class 3 severe obesity with body mass index (BMI) of 45.0 to 49.9 in adult, unspecified obesity type, unspecified whether serious comorbidity present (HCC) - ICD9: 278.01, V85.42, ICD10: E66.01, Z68.42 Encouraged PAP compliance. Encouraged weight loss. Contacting DME regarding no longer providing download - suspect due to outdated modem. AHI normalized on current settings. No significant leaks. Advised patient to clean and replace equipment regularly. Advised pt not to drive or operate heavy machinery when sleepy. 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 Ivette Mejia MD I spent a total of 40+ minutes on the date of the service which included preparing to see the patient, [id number] patient care, completing clinical documentation, obtaining and/or reviewing separately obtained history, performing a medically appropriate examination, counseling and educating the pa tient/family/caregiver, ordering medications, tests, or procedures, independently interpreting results (not separately reported) and communicating results to the patient/family/caregiver. documented in this [facility]06-[facility]-2022 Miscellaneous Notes* Telephone Encounter - Helen Camacho LPN - 04/05/2022 9:51 AM EDT Last office visit 02/23/2022 documented in this encounterFair[facility]05-27-2022 Miscellaneous Notes* Telephone Encounter - Milena Rico LPN - 03/30/2022 11:08 AM EDT april-- 02/28/22 Next 05/01/22 Last refill-- 03/16/22 20 with 0 refills Last labs 02/07/22 documented in this encounterFair[facility] Center05-26-2022 Miscellaneous Notes* Telephone Encounter - Terese Cruz - 03/29/2022 12:52 PM EDT 1.Are you diabetic Yes. Please list the current medications being prescribed see list. 2. Are you on any blood thinners? No 3. Are you taking any aspirin? No 4. Have you had any recent imaging done on your body part that's being injected? No 5. Do you have any allergies to latex? No 6. Do you have any allergies to seafood? No 7. Do you have any allergies to shellfish? No 8. Do you have any allergies to x-ray dye? No 9. Are you taking Xanax for the procedure? No 10. Have you done physical therapy in the last year? No If yes, When and Where? (Medical Records Release needs to be signed.) 11. Were the pre-procedure instructions explained to the patient? Yes 12. Do you have a pacemaker? No 13. Do you have an internal stimulator of any kind? No If yes, please bring the remote with you to your procedure visit. 14. Have you received the COVID-19 Vaccine? Yes. If yes, date(s) received: 10/18/21 (Patient should not receive a procedure including steroids 14 days prior to their first dose of theCOVID vaccine. They should not receive any procedure containing steroids in the time frame between their 1st and 2nd doses of the COVID vaccine. They should not receive a procedure containing steroids 14 days after their 2nd dose of the COVID vaccine.) Terese Cruz documented in this encounterFairfield [facility] Center05-26-2022 NoteHNO ID: [id number] Author: Henna Boles MA Service: ? Author Type: Stereotyper Apprentice Type: Progress Notes Filed: 03/29/2022 11:48 AM Note Text: Review of Systems Constitutional: Negative for activity change, chills, fever and unexpected weight change. Genitourinary: Negative for difficulty urinating. Musculoskeletal: Positive for back pain, myalgias, neck pain and neck stiffness. Negative for arthralgias, gait problem and joint swelling. Neurological: Positive for weakness, numbness and headaches. Psychiatric/Behavioral: Positive for sleep disturbance. Negative for dysphoric mood and suicidal ideas. The patient is not nervous/anxious.[facility]05[facility] History of Present illness Narrative* Henna Boles MA - 03/29/2022 10:51 AM EDT Review of Systems Constitutional: Negative for activity change, chills, fever and unexpected weight change. Genitourinary: Negative for difficulty urinating. Musculoskeletal: Positive for back pain, myalgias, neck pain and neck stiffness. Negative for arthralgias, gait problem and joint swelling. Neurological: Positive for weakness, numbness and headaches. Psychiatric/Behavioral: Positive for sleep disturbance. Negative for dysphoric mood and suicidal ideas. The patient is not nervous/anxious. * Elle Sanchez MD - 03/29/2022 7:53 AM EDT Images from the original note were not included. [facility] Name: Tori Gray : 1980 Purpose: New Patient Consultation Today's Date: 03/29/2022 Thank you, Sam Greene, for referring Tori Gray for evaluation and management options for the chief complaint(s) noted below. Initial HPI: (Obtained on 03/29/2022) Referred by Sam Greene. Tori Gray is a 41 year oldyear-old female, who presents with the following chief complaint(s): left shoulder pain. Symptoms were first noted nearly one year ago. The onset of symptoms was sudden and was with associated trauma. She awoke in bed one morning, had sharp pain in the right shoulder, she reached across her body to pull her right shoulder back towards her body, had a sharp pain in the left shoulder. The following day, she had sharp pain in the left shoulder. She has constant aching pain, starting in the left shoulder. It feels like weight. She has worsening pain with overhead motion, any lifting even to chest height. She has periodic radiation of pain down the left upper limb into the entire hand. Sometimes the weight of wearing her watch aggravates her pain. Treatments prior to initial presentation include the following: Medications (See below), Modalities(eg. Heat, Ice), Physical Therapy , Chiropractics, Home Exercise Program and Activity Modification.She went through 12 weeks of PT, pain was worse afterwards. She is seeing a Chiropractor regularly. She was seen by Dr. Greene in Ortho on 12/21/2021, noted she had an EMG at [facility] which was normal (Jul 2021). MRI shoulder had very minor degenerative changes. Non-surgical management was advised. 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 She is right-handed. Right shoulder is doing well at this time. She occasionally has neck stiffness, but not her primary complaint. She reports dry-needling helped in her low back, but aggravated herneck and shoulder. She reports that she has had steroid injections in her low back, which has caused two weeks of hives each time. She has known history of lumbar disc disease. She was seeing Dr. Schafer. Current Status: INTAKE PAIN ASSESSMENT 02/28/2022 03/29/2022 Are you having pain associated with your visit today? No Yes, Provider notified Pain Scales - Verbal (Numeric Rating or Visual Analog Scale) Pain Level - 7 Pain Location - Shoulder-Left Description - Aching Duration Amount of Time - 1 Duration Units - Years Frequency - Continuous Intervention/Comfort measure - Medication;Reposition;Relaxation Comments - - Medication: Current pain medications: o Neurontin 200mg BID o Topamax 50mg BID (for migraines) o Zanaflex 4mg qHS PRN - for her low back o Tylenol PM - insomnia Analgesia: Not adequate Functional Goals: To remain active and independent. Compliance: PDMP website checked and validated. All prescriptions have been APPROPRIATELY filled. No suspiciousactivity was identified. by Elle Sanchez MD 03/29/2022 Last Drug screen: Not Applicable Risk Assessment: VAHE-7: VAHE - 7 SCORES 03/29/2022 VAHE-7 Score 0 (0-4) minimal anxiety, (5-9) mild anxiety, (10-14) moderate anxiety, (15-21) severe anxiety PHQ-9: PHQ-9 05/16/2017 07/29/2020 03/29/2022 Score 8 2 2 (0-4) minimal depression, (5-9) mild depression, (10-14) moderate depression, (15-19) moderately severe depression, (20-27) severe depression Opioid Risk Tool: Family History of Substance Abuse: 0 - No Personal History of Substance Abuse: 0 - No Age between 16-45: 0 - No History of Pre-Adolescence Sexual Abuse: 0 - No Psychological Disease: 0 - No Risk Total: 0 Total Score Risk Category: Low Risk 0-3 (low risk) (0-3, low risk or no risk; 4-7, moderate risk, 8+, high risk) Pain Medications Taken to Date (for the chief complaint(s)): Membrane Stabilizers: Neurontin (Gabapentin), Elavil (Amitriptyline) and Topamax (Topiramate) - Elavil increases her heart rate NSAIDS: Daypro, Naprosyn (Naproxen), Mobic (Meloxicam) and Lodine (Etodolac) Opioids: Vicodin or Skyforest (Hydrocodone) and Percocet (Oxycodone) Muscle Relaxants: Zanaflex (Tizanidine) - to help sleep (for low back) Topicals: none Other Prescription or OTC Pain Medications: Tylenol (Acetaminophen) - Takes Tylenol PM to help sleep Non-Pain Meds of Note: None Allergies: ALLERGIES Allergen Reactions Lidocaine Hives Steroids [Betametha* Hives She had Hives after a Toradol injection that also had Lidocaine and Versed. She has had other injections with Lidocaine and tolerated. Current Medications, Past Medical History, Past Surgical History, Family History, Social History and Review of Systems: On today's date, noted above, I have confirmed and edited as necessary, the PFSH and ROS obtained by others. Diagnostic Studies: Reviewed Personally on today's date, noted above MRI Spine Report MRI LUMBAR SPINE WO CONTRAST Collected: 02/16/2010 8:25 AM (Final result) Complete Results MRI C-Spine 08/2021 ([facility]): Very mild degenerative changes MRI L-spine 11/2021 ([facility]): Very mild degenerative changes. Facet arthropathy at L1-2 through L5-S1. MRI Left Shoulder 10/2021 ([facility]): Small GH effusion, small degenerative change posterior-inferior labrum (Per Dr. Greene) MRI of the right shoulder from an outside facility is essentially normal with someminor degenerative labral fraying and a joint effusion. DATE PROCEDURE IMPROVEMENT None to date at this practice Physical Exam: 03/29/22 1058 Pulse: 62 Resp: 15 SpO2: 98% Constitutional:morbidly obese Eyes: Conjunctiva clear. No discharge from eyes Cardiovascular: Appears well perfused Lymphatic: No visible regional lymphadenopathy Skin: No visible rashes or ecchymosis Psychiatric: Full affect, Alert, Pleasant Neuro-Upper: Sensation: ? Increased to light touch in left upper limb dermatomes (C6-8), no allodynia Strength: ? Deltoid (C5): 5 left, 5 Right ? Biceps (C6): 5 left, 5 Right ? Triceps (C7): 5 left, 5 Right ? Wrist Extensors (C8): 5 left, 5 Right ? Abduct. Pollicis Brevis (T1): 5 left, 5 Right Muscle Tone: ? Normal and symmetric throughout, without clonus Musculoskeletal-Upper: Inspection: ? Symmetric without atrophy Palpation: ? Cervical Paraspinal Tenderness: None ? Greater Occipital Nerves: no tenderness in overlying tissue ? Paraspinal spasm: None Range of Motion: ? Flexion/Extension: Normal Without end range pain ? Lateral Bending: Decreased 50% With end range pain ? Lateral Rotation: Decreased 25% With end range pain Left Shoulder: Palpation: ? Concordant tenderness to palpation over left upper trap ? No pain over the AC joint Range of Motion: ? Concordant pain with passive flexion, extension, abduction, internal and external rotation ? ER to 5' left, 45' right Special Tests: Concordant pain with Zac-Alexandra Ji's Diagnoses: (M79.18) Myofascial pain (primary encounter diagnosis) (M25.512, G89.29) Chronic left shoulder pain (M79.2) Neuropathic pain (M75.02) Adhesive capsulitis of left shoulder (M19.012) Primary osteoarthritis of left shoulder Impression: 41 year old female with significant past medical history for LETITIA, Fatty Liver, DM2, Obesity, Long QT Interval, who presents with complaint(s) of chronic left shoulder pain, likely a sprain/strain injury with persistent myofascial pain. MRI showed subtle labral tear, rotator cuff is in tact. She had radicular symptoms in the left upper limb, but Electrodiagnostic Study was unremarkable. Steroid allergy. Plan: Tori Gray would benefit from the following to reach personal goals for decreasing pain, improving function and work participation, and/or improving quality of life: Interventional Procedure(s): ultrasound guided left suprascapular nerve blockade (no steroids) The risks, benefits, alternative treatment options and prognosis of the procedure were discussed and all of the patient's questions/concerns were addressed to the patient's satisfaction. The patient expressed understanding and gave verbal consent to proceed. Medication(s): Discontinue Neurontin Lyrica 75mg - titrate to TID Additional Studies: None Referrals: No additional considerations at present Functional Quaker: No changes-continue current regimen Depending on response to the above-mentioned plan of care, in the future may consider evaluation for: RFA Left shoulder; SPRINT Left Shoulder; start PT when better control of pain for frozen shoulder -Follow-up: 2 months Attribution: In addition to reviewing the information noted above, some elements copied from my most recent clinical note(s), including the physical exam (completed in entirety today), and the impression and plan sections, have been updated where appropriate. All reflect current medical decision making from today's date. Elle Sanchez MD, MBA Pain Management [facility] documented in this encounterFairfield [facility] Center05-26-2022 NoteHNO ID: [id number] Author: Elle Sanchez MD Service: ? Author Type: Physician Type: Progress Notes Filed: 03/29/2022 11:48 AM Note Text: [facility] Name: Tori Gray : 1980 Purpose: New Patient Consultation Today's Date: 03/29/2022 Thank you, Sam Greene, for referring Tori Gray for evaluation and management options for the chief complaint(s) noted below. Initial HPI: (Obtained on 03/29/2022) Referred by Sam Greene. Tori Gray is a 41 year old year-old female, who presents with the following chief complaint(s): left shoulder pain. Symptoms were first noted nearly one year ago. The onset of symptoms was sudden and was with associated trauma. She awoke in bed one morning, had sharp pain in the right shoulder, she reached across her body to pull her right shoulder back towards her body, had a sharp pain in the left shoulder. The following day, she had sharp pain in the left shoulder. She has constant aching pain, starting in the left shoulder. It feels like weight. She has worsening pain with overhead motion, any lifting even to chest height. She has periodic radiation of pain down the left upper limb into the entire hand. Sometimes the weight of wearing her watch aggravates her pain. Treatments prior to initial presentation include the following: Medications (See below), Modalities (eg. Heat, Ice), Physical Therapy , Chiropractics, Home Exercise Program and Activity Modification. She went through 12 weeks of PT, pain was worse afterwards. She is seeing a Chiropractor regularly. She was seen by Dr. Greene in Ortho on 12/21/2021, noted she had an EMG at [facility] which was normal (Jul 2021). MRI shoulder had very minor degenerative changes. Non-surgical management was advised. 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 She is right-handed. Right shoulder is doing well at this time. She occasionally has neck stiffness, but not her primary complaint. She reports dry-needling helped in her low back, but aggravated her neck and shoulder. She reports that she has had steroid injections in her low back, which has caused two weeks of hives each time. She has known history of lumbar disc disease. She was seeing Dr. Schafer. Current Status: INTAKE PAIN ASSESSMENT 02/28/2022 03/29/2022 Are you having pain associated with your visit today? No Yes, Provider notified Pain Scales - Verbal (Numeric Rating or Visual Analog Scale) Pain Level - 7 Pain Location - Shoulder-Left Description - Aching Duration Amount of Time - 1 Duration Units - Years Frequency - Continuous Intervention/Comfort measure - Medication;Reposition;Relaxation Comments - - Medication: - Current pain medications: o Neurontin 200mg BID o Topamax 50mg BID (for migraines) o Zanaflex 4mg qHS PRN - for her low back o Tylenol PM - insomnia - Analgesia: Not adequate Functional Goals: To remain active and independent. Compliance: PDMP website checked and validated. All prescriptions have been APPROPRIATELY filled. No suspicious activity was identified. by Elle Sanchez MD 03/29/2022 Last Drug screen: Not Applicable Risk Assessment: VAHE-7: VAHE - 7 SCORES 03/29/2022 VAHE-7 Score 0 (0-4) minimal anxiety, (5-9) mild anxiety, (10-14) moderate anxiety, (15-21) severe anxiety PHQ-9: PHQ-9 05/16/2017 07/29/2020 03/29/2022 Score 8 2 2 (0-4) minimal depression, (5-9) mild depression, (10-14) moderate depression, (15-19) moderately severe depression, (20-27) severe depression Opioid Risk Tool: Family History of Substance Abuse: 0 - No Personal History of Substance Abuse: 0 - No Age between 16-45: 0 - No History of Pre-Adolescence Sexual Abuse: 0 - No Psychological Disease: 0 - No Risk Total: 0 Total Score Risk Category: Low Risk 0-3 (low risk) (0-3, low risk or no risk; 4-7, moderate risk, 8+, high risk) Pain Medications Taken to Date (for the chief complaint(s)): Membrane Stabilizers: Neurontin (Gabapentin), Elavil (Amitriptyline) and Topamax (Topiramate) - Elavil increases her heart rate NSAIDS: Daypro, Naprosyn (Naproxen), Mobic (Meloxicam) and Lodine (Etodolac) Opioids: Vicodin or Skyforest (Hydrocodone) and Percocet (Oxycodone) Muscle Relaxants: Zanaflex (Tizanidine) - to help sleep (for low back) Topicals: none Other Prescription or OTC Pain Medications: Tylenol (Acetaminophen) - Takes Tylenol PM to help sleep Non-Pain Meds of Note: None Allergies: ALLERGIES Allergen Reactions - Lidocaine Hives - Steroids [Betametha* Hives She had Hives after a Toradol injection that also had Lidocaine and Versed. She has had other injections with Lidocaine and tolerated. Current Medications, Past Medical History, Past Surgical History, Family History, Social History and Review of Systems: On today's date, noted (more content not included)...[facility]05-[facility] Miscellaneous Notes* Telephone Encounter - Helen Camacho LPN - 03/16/2022 11:14 AM EDT Patient phones requesting refills as follows: Pending Prescriptions Disp Refills TIZANIDINE 4 MG TABLET 20 tablet 0 Sig: Take 1 tablet by mouth every 8 hours as needed. CRISTINA: No Please review and advise. Helen Camacho LPN documented in this encounterFair[facility] Center05-02-2022 Miscellaneous Notes* Telephone Encounter - LEVAR Jasmine - 03/05/2022 9:36 AM EDT Patient has been identified by name and date of : Yes Patient phones for refill(s): Pending Prescriptions Disp Refills TIZANIDINE 4 MG TABLET 20 tablet 0 Sig: Take 1 tablet by mouth every 8 hours as needed. CRISTINA: No Date of last office visit in primary care: [facility] 02/28/2022 Appointment scheduled for 05/01/2022 Last 2 Encounter Wt Readings: Date: Wt: 02/28/2022 120.7 kg (266 lb) 01/25/2022 119.7 kg (264 lb) Please advise. Thank you. LVEAR Jasmine documented in this encounterFairfield [facility] Center04-27-2022 History of Present illness Narrative* Ivette Grimes MD - 02/28/2022 4:43 PM EDT Patient presents with: ED Follow-up HPI: Patient presents today for office visit for follow up. Nursing Notes: Nirmala Storey LPN 02/28/2022 4:42 PM Signed HOSPITAL/ER FOLLOW UP: Reason for visit: back pain/headache(different pain not her chronic pain) Pain went from lower backup to shoulders. Which facility: [facility] Date of visit: 02/27/22 Diagnosis: back pain, hypertension Testing done: CT scan and labs Treatment given: no new changes Current symptoms: mild headache still and back pain, just feels off Was just feeling off. Aching. Cold chills. Scheduled with Dr Sanchez. bp was up in ER,. Given hydralazine. Ct of abd and pelvis was negative. Labs and urine were negative. Pain happened last week as well. Happened all day yesterday. Sidney different than her classic disc pain. Might have felt similar to her kidney stone. Urine however was clear. No pain down legs. No numbness or weakness. Sees neuro next month and will be seeing pain management. Took two excedrin before she went to ER. MS did not help. Her muscles and whole body hurt. Her at home covid test was negative. Took a muscle relaxer and went to sleep and felt better. Pain is not as bad today. No recent trauma. No chest pain or shortness of breath. No bowel issues. No urinary issues. Overall is doing better today. Has zanflex at home as well. MEDICATIONS: Current Outpatient Medications Medication Sig tiZANidine (ZANAFLEX) 4 mg tablet Take 1 tablet by mouth every 8 hours as needed. fexofenadine (ALMA ALLERGY) 180 mg tablet Take 1 tablet by mouth once daily. gabapentin (NEURONTIN) 100 mg capsule Take 2 capsules by mouth twice daily for 90 days. omeprazole (PRILOSEC) 20 mg capsule Take 1 capsule by mouth daily before breakfast. 1/2 hr before meal. lisinopril (ZESTRIL, PRINIVIL) 5 mg tablet Take 1 tablet by mouth once daily. topiramate (TOPAMAX) 50 mg tablet Take 1 tablet by mouth twice daily. dulaglutide (TRULICITY) 0.75 mg/0.5 mL pen injector Inject 0.75 mg subcutaneously one time a week. Inject dose once per week. Discard Pen After levonorgestrel (KYLEENA) 17.5 mcg/24 hrs (5 yrs) 19.5 mg IUD 1 Each by INTRAUTERINE route as directed. albuterol HFA (VENTOLIN HFA) 90 mcg/actuation inhaler Inhale 2 Puffs as instructed every 4 hours asneeded for Wheezing/Shortness of Breath. CPAP Please fit with a Dreamwear under nose FFM. Patient with sore on bridge of nose and difficulties moving in bed with current PAP mask. Ipratropium [place] (ATROVENT) 0.03 % nasal spray Use 2 Sprays in the nose every 12 hours. metroNIDAZOLE (METROGEL) 0.75 % Topical Gel Apply to affected area twice daily. Herrick-3 Fatty Acids (FISH OIL) 500 mg cap Take 1 capsule by mouth once daily. blood sugar diagnostic (BLOOD GLUCOSE TEST) test strip Test blood sugar(s) 1 times daily. Dx: Type 2 DM - Controlled E11.9 Insulin: Yes Lancets lancets Test blood sugar(s) 1 times daily. Dx: Type 2 DM - Controlled E11.9 Insulin: No Pfamedvw-Dw-Ogz-Fe-FA ( FORMULA) ORAL Tab Take 1 tablet by mouth once daily. No current facility-administered medications for this visit. ALLERGIES: ALLERGIES Allergen Reactions Lidocaine Hives Steroids [Betametha* GI Upset PAST MEDICAL HISTORY Diagnosis Date Acute cholecystitis Cholecystitis Anxiety 06/07/2014 Type 2 diabetes mellitus (HCC) PAST SURGICAL HISTORY Procedure Laterality Date DELIVERY ONLY 2005 , low cervical INSERT INTRAUTERINE DEVICE 10/19/08 mirena LAPAROSCOPY SURG CHOLECYSTECTOMY 2006 Cholecystectomy, lap (Rowena Monet) PAST SURGICAL HISTORY OF 2019 stent into kidney REMOVE IUD 07/13/2010 FAMILY HISTORY Problem Relation Age of Onset Alcohol/Drug Mother Heart Father [place] Cancer Father PANCREATIC CANCER Diabetes Father Diabetes Maternal Grandfather Cancer Maternal Grandmother LUNG CANCER Heart Paternal Grandmother TRIPLE BYPASS SURGERY Social History Tobacco Use Smoking status: Never Smoker Smokeless tobacco: Never Used Vaping Use Vaping Use: Never used Substance Use Topics Alcohol use: No Drug use: No Reviewed current medications, allergies, past medical history, surgical history, family history andsocial history today. REVIEW OF SYSTEMS All other reviewed and negative other than HPI. HEALTH MAINTENANCE: Reviewed health maintenance issues today and recommended the following in detail. There are no preventive care reminders to display for this patient. VITALS: BP 142/82 Pulse 72 Wt 120.7 kg (266 lb) LMP 03/22/2021 BMI 41.66 kg/m Last 4 Encounter Wt Readings: Date: Wt: 02/28/2022 120.7 kg (266 lb) 01/25/2022 119.7 kg (264 lb) 01/04/2022 117.5 kg (259 lb) 12/21/2021 117.9 kg (260 lb) PHYSICAL EXAMINATION: General appearance: Well appearing, alert, in no acute distress, well-hydrated, well nourished. Skin: Skin color, texture, turgor normal, no suspicious rashes or lesions Head: Normocephalic, no masses, lesions, tenderness or abnormalities Neck: tender over traps bilaterally Lungs: Lungs clear to auscultation. No wheezing, rhonchi, rales Heart: RRR without murmur, gallop, or rubs. No ectopy Abdomen: Normal abdominal exam, Abdomen soft, non-tender. Bowel sounds normal. No masses, organomegaly Extremities: No deformities, edema, skin discoloration, clubbing or cyanosis. Good capillary refill. Musculoskeletal: No joint swelling, deformity, or tenderness Peripheral pulses: Normal Neuro: Gait normal. Reflexes normal and symmetric. Sensation grossly intact. ASSESSMENT/PLAN: 1. Upper back pain - ICD9: 724.5, ICD10: M54.9 (primary diagnosis) - try zanaflex prn. Heat alternating with ice. 2. Acute midline low back pain without sciatica - ICD9: 724.2, ICD10: M54.50 - as above. - Red flags for re-assessment reviewed with patient in detail. 3. Type 2 diabetes mellitus with microalbuminuria, with long-term current use of insulin (HCC) - ICD9: 250.40, 791.0, V58.67, ICD10: E11.29, R80.9, Z79.4 Controlled. - Continue current medications 4. LETITIA (obstructive sleep apnea) - ICD9: 327.23, ICD10: G47.33 - stable. 5. Lumbar disc disorder - ICD9: 722.93, ICD10: M51.9 - see dr. Sanchez 6. Elevated BP without diagnosis of hypertension - ICD9: 796.2, ICD10: R03.0 - Call with bp in two weeks. - Goal of BP <130/80 Ivette Grimes RTO in six to eight weeks [facility]* Nirmala Storey LPN - 02/28/2022 4:36 PM EDT HOSPITAL/ER FOLLOW UP: Reason for visit: back pain/headache(different pain not her chronic pain) Pain went from lower backup to shoulders. Which facility: [facility] Date of visit: 02/27/22 Diagnosis: back pain, hypertension Testing done: CT scan and labs Treatment given: no new changes Current symptoms: mild headache still and back pain, just feels off Was just feeling off. Aching. Cold chills. Scheduled with Dr Sanchez. documented in this [facility]04[facility]22 Miscellaneous Notes* Telephone Encounter - Quinn Lazo LPN - 02/27/2022 12:44 PM EDT Appt scheduled. Quinn Lazo LPN documented in this [facility]04[facility]22 Miscellaneous Notes* Telephone Encounter - LEVAR Jasmine - 02/23/2022 12:24 PM EDT Patient has been identified by name and date of : Yes Patient phones for refill(s): Pending Prescriptions Disp Refills TIZANIDINE 4 MG TABLET 20 tablet 0 Sig: Take 1 tablet by mouth every 8 hours as needed. CRISTINA: No Date of last office visit in primary care: OV on 01/25/2022 No appointment scheduled Last 2 Encounter Wt Readings: Date: Wt: 01/25/2022 119.7 kg (264 lb) 01/04/2022 117.5 kg (259 lb) Please advise. Thank you. LEVAR Jasmine [facility] this [facility]04[facility] Miscellaneous Notes* Telephone Encounter - Nirmala Storey LPN - 02/07/2022 4:09 PM EDT [employer] message sent to patient. * Telephone Encounter - Ivette Grimes MD - 02/07/2022 3:38 PM EDT Let her her know her labs look great. * Telephone Encounter - Nirmala Storey LPN - 02/07/2022 2:33 PM EDT Received lab results from [facility]. Placed on desk for review. documented in this [facility]04-[facility]-2022 Miscellaneous Notes* Telephone Encounter - Tessy Wadsworth Ma - 02/05/2022 12:25 PM EDT Labs faxed within [employer] to update if there are any issues. Tessy Wadsworth Ma documented in this encounterFair[facility]03[facility]28-[facility]22 Miscellaneous Notes* Telephone Encounter - Darrion Carson - 01/29/2022 3:13 PM EDT I have attempted to contact this patient by phone, Left brief message on cell voicemail stating to call and schedule. Darrion Carson * Telephone Encounter - Darrion Carson - 01/29/2022 3:13 PM EDT ----- Message from Gale Quinonez sent at 01/29/2022 3:10 PM EDT ----- Regarding: FW: New Referral ----- Message ----- From: Juliana Carrillo Sent: 01/29/2022 7:34 AM EDT To: Calvin Gaytan, Gale Quinonez Subject: FW: New Referral ----- Message ----- From: Nirmala Storey LPN Sent: 01/26/2022 9:15 AM EDT To: Juliana Carrillo Subject: New Referral Dr Grimes and Dr Alfonso have suggested patient see Dr Sanchez for left shoulder pain. Thank you! documented in this encounterFair[facility]02-[facility]-2013 History of Past illness Narrative* Problem Noted Date Resolved Date Routine general medical exam ination at a health care facility 12/06/2012 02/22/2014 Routine general medical exam ination at a health care facility 01/23/2010 12/06/2012 Overview: 01/23/2010, from Dr. White Routine gynecological examination 01/23/2010 02/22/2014 SACROILIITIS 05/06/2009 01/23/2010 KERATOSIS PILARIS////SKIN ANOMALY NEC 03/26/2007 01/23/2010 FOLLICULITIS///HAIR DISEASES NEC 03/26/2007 01/23/2010 Lichenification and lichen simplex chronicus 01/23/2010 DERMATOFIBROMA///BENIGN KAILEY SKIN ARM 03/26/2007 01/23/2010 Contact dermatitis and other eczema, due to unspecified cause 03/26/2007 01/23/2010 Transient hypertension of , antepartum 06/19/2006 07/02/2006 Supervision of normal first 11/09/2005 07/02/2006 documented as of this encounter (statuses as of 01/30/2022) [facility] Narrative* Problem Noted Date Resolved Date Routine general medical exam ination at a health care facility 12/06/2012 02/22/2014 Routine general medical exam ination at a health care facility 01/23/2010 12/06/2012 Overview: 01/23/2010, from Dr. White Routine gynecological examination 01/23/2010 02/22/2014 SACROILIITIS 05/06/2009 01/23/2010 KERATOSIS PILARIS////SKIN ANOMALY NEC 03/26/2007 01/23/2010 FOLLICULITIS///HAIR DISEASES NEC 03/26/2007 01/23/2010 Lichenification and lichen simplex chronicus 01/23/2010 DERMATOFIBROMA///BENIGN KAILEY SKIN ARM 03/26/2007 01/23/2010 Contact dermatitis and other eczema, due to unspecified cause 03/26/2007 01/23/2010 Transient hypertension of , antepartum 06/19/2006 07/02/2006 Supervision of normal first 11/09/2005 07/02/2006 documented as of this encounter (statuses as of 02/05/2022) [facility] Narrative* Problem Noted Date Resolved Date Routine general medical exam ination at a health care facility 12/06/2012 02/22/2014 Routine general medical exam ination at a health care facility 01/23/2010 12/06/2012 Overview: 01/23/2010, from Dr. White Routine gynecological examination 01/23/2010 02/22/2014 SACROILIITIS 05/06/2009 01/23/2010 KERATOSIS PILARIS////SKIN ANOMALY NEC 03/26/2007 01/23/2010 FOLLICULITIS///HAIR DISEASES NEC 03/26/2007 01/23/2010 Lichenification and lichen simplex chronicus 01/23/2010 DERMATOFIBROMA///BENIGN KAILEY SKIN ARM 03/26/2007 01/23/2010 Contact dermatitis and other eczema, due to unspecified cause 03/26/2007 01/23/2010 Transient hypertension of , antepartum 06/19/2006 07/02/2006 Supervision of normal first 11/09/2005 07/02/2006 documented as of this encounter (statuses as of 02/07/2022) [facility] Narrative* Problem Noted Date Resolved Date Routine general medical exam ination at a health care facility 12/06/2012 02/22/2014 Routine general medical exam ination at a health care facility 01/23/2010 12/06/2012 Overview: 01/23/2010, from Dr. White Routine gynecological examination 01/23/2010 02/22/2014 SACROILIITIS 05/06/2009 01/23/2010 KERATOSIS PILARIS////SKIN ANOMALY NEC 03/26/2007 01/23/2010 FOLLICULITIS///HAIR DISEASES NEC 03/26/2007 01/23/2010 Lichenification and lichen simplex chronicus 01/23/2010 DERMATOFIBROMA///BENIGN KAILEY SKIN ARM 03/26/2007 01/23/2010 Contact dermatitis and other eczema, due to unspecified cause 03/26/2007 01/23/2010 Transient hypertension of , antepartum 06/19/2006 07/02/2006 Supervision of normal first 11/09/2005 07/02/2006 documented as of this encounter (statuses as of 02/07/2022) [facility] Narrative* Problem Noted Date Resolved Date Routine general medical exam ination at a health care facility 12/06/2012 02/22/2014 Routine general medical exam ination at a health care facility 01/23/2010 12/06/2012 Overview: 01/23/2010, from Dr. White Routine gynecological examination 01/23/2010 02/22/2014 SACROILIITIS 05/06/2009 01/23/2010 KERATOSIS PILARIS////SKIN ANOMALY NEC 03/26/2007 01/23/2010 FOLLICULITIS///HAIR DISEASES NEC 03/26/2007 01/23/2010 Lichenification and lichen simplex chronicus 01/23/2010 DERMATOFIBROMA///BENIGN KAILEY SKIN ARM 03/26/2007 01/23/2010 Contact dermatitis and other eczema, due to unspecified cause 03/26/2007 01/23/2010 Transient hypertension of , antepartum 06/19/2006 07/02/2006 Supervision of normal first 11/09/2005 07/02/2006 documented as of this encounter (statuses as of 02/08/2022) [facility] Narrative* Problem Noted Date Resolved Date Routine general medical exam ination at a health care facility 12/06/2012 02/22/2014 Routine general medical exam ination at a health care facility 01/23/2010 12/06/2012 Overview: 01/23/2010, from Dr. White Routine gynecological examination 01/23/2010 02/22/2014 SACROILIITIS 05/06/2009 01/23/2010 KERATOSIS PILARIS////SKIN ANOMALY NEC 03/26/2007 01/23/2010 FOLLICULITIS///HAIR DISEASES NEC 03/26/2007 01/23/2010 Lichenification and lichen simplex chronicus 01/23/2010 DERMATOFIBROMA///BENIGN KAILEY SKIN ARM 03/26/2007 01/23/2010 Contact dermatitis and other eczema, due to unspecified cause 03/26/2007 01/23/2010 Transient hypertension of , antepartum 06/19/2006 07/02/2006 Supervision of normal first 11/09/2005 07/02/2006 documented as of this encounter (statuses as of 02/23/2022) [facility] Narrative* Problem Noted Date Resolved Date Routine general medical exam ination at a health care facility 12/06/2012 02/22/2014 Routine general medical exam ination at a health care facility 01/23/2010 12/06/2012 Overview: 01/23/2010, from Dr. White Routine gynecological examination 01/23/2010 02/22/2014 SACROILIITIS 05/06/2009 01/23/2010 KERATOSIS PILARIS////SKIN ANOMALY NEC 03/26/2007 01/23/2010 FOLLICULITIS///HAIR DISEASES NEC 03/26/2007 01/23/2010 Lichenification and lichen simplex chronicus 01/23/2010 DERMATOFIBROMA///BENIGN KAILEY SKIN ARM 03/26/2007 01/23/2010 Contact dermatitis and other eczema, due to unspecified cause 03/26/2007 01/23/2010 Transient hypertension of , antepartum 06/19/2006 07/02/2006 Supervision of normal first 11/09/2005 07/02/2006 documented as of this encounter (statuses as of 02/27/2022) [facility] Narrative* Problem Noted Date Resolved Date Routine general medical exam ination at a health care facility 12/06/2012 02/22/2014 Routine general medical exam ination at a health care facility 01/23/2010 12/06/2012 Overview: 01/23/2010, from Dr. White Routine gynecological examination 01/23/2010 02/22/2014 SACROILIITIS 05/06/2009 01/23/2010 KERATOSIS PILARIS////SKIN ANOMALY NEC 03/26/2007 01/23/2010 FOLLICULITIS///HAIR DISEASES NEC 03/26/2007 01/23/2010 Lichenification and lichen simplex chronicus 01/23/2010 DERMATOFIBROMA///BENIGN KAILEY SKIN ARM 03/26/2007 01/23/2010 Contact dermatitis and other eczema, due to unspecified cause 03/26/2007 01/23/2010 Transient hypertension of , antepartum 06/19/2006 07/02/2006 Supervision of normal first 11/09/2005 07/02/2006 documented as of this encounter (statuses as of 02/28/2022) [facility] Narrative* Problem Noted Date Resolved Date Routine general medical exam ination at a health care facility 12/06/2012 02/22/2014 Routine general medical exam ination at a health care facility 01/23/2010 12/06/2012 Overview: 01/23/2010, from Dr. White Routine gynecological examination 01/23/2010 02/22/2014 SACROILIITIS 05/06/2009 01/23/2010 KERATOSIS PILARIS////SKIN ANOMALY NEC 03/26/2007 01/23/2010 FOLLICULITIS///HAIR DISEASES NEC 03/26/2007 01/23/2010 Lichenification and lichen simplex chronicus 01/23/2010 DERMATOFIBROMA///BENIGN KAILEY SKIN ARM 03/26/2007 01/23/2010 Contact dermatitis and other eczema, due to unspecified cause 03/26/2007 01/23/2010 Transient hypertension of , antepartum 06/19/2006 07/02/2006 Supervision of normal first 11/09/2005 07/02/2006 documented as of this encounter (statuses as of 03/05/2022) [facility] Narrative* Problem Noted Date Resolved Date Routine general medical exam ination at a health care facility 12/06/2012 02/22/2014 Routine general medical exam ination at a health care facility 01/23/2010 12/06/2012 Overview: 01/23/2010, from Dr. White Routine gynecological examination 01/23/2010 02/22/2014 SACROILIITIS 05/06/2009 01/23/2010 KERATOSIS PILARIS////SKIN ANOMALY NEC 03/26/2007 01/23/2010 FOLLICULITIS///HAIR DISEASES NEC 03/26/2007 01/23/2010 Lichenification and lichen simplex chronicus 01/23/2010 DERMATOFIBROMA///BENIGN KAILEY SKIN ARM 03/26/2007 01/23/2010 Contact dermatitis and other eczema, due to unspecified cause 03/26/2007 01/23/2010 Transient hypertension of , antepartum 06/19/2006 07/02/2006 Supervision of normal first 11/09/2005 07/02/2006 documented as of this encounter (statuses as of 03/16/2022) [facility] Narrative* Problem Noted Date Resolved Date Routine general medical exam ination at a health care facility 12/06/2012 02/22/2014 Routine general medical exam ination at a health care facility 01/23/2010 12/06/2012 Overview: 01/23/2010, from Dr. White Routine gynecological examination 01/23/2010 02/22/2014 SACROILIITIS 05/06/2009 01/23/2010 KERATOSIS PILARIS////SKIN ANOMALY NEC 03/26/2007 01/23/2010 FOLLICULITIS///HAIR DISEASES NEC 03/26/2007 01/23/2010 Lichenification and lichen simplex chronicus 01/23/2010 DERMATOFIBROMA///BENIGN KAILEY SKIN ARM 03/26/2007 01/23/2010 Contact dermatitis and other eczema, due to unspecified cause 03/26/2007 01/23/2010 Transient hypertension of , antepartum 06/19/2006 07/02/2006 Supervision of normal first 11/09/2005 07/02/2006 documented as of this encounter (statuses as of 03/29/2022) [facility] Narrative* Problem Noted Date Resolved Date Routine general medical exam ination at a health care facility 12/06/2012 02/22/2014 Routine general medical exam ination at a health care facility 01/23/2010 12/06/2012 Overview: 01/23/2010, from Dr. White Routine gynecological examination 01/23/2010 02/22/2014 SACROILIITIS 05/06/2009 01/23/2010 KERATOSIS PILARIS////SKIN ANOMALY NEC 03/26/2007 01/23/2010 FOLLICULITIS///HAIR DISEASES NEC 03/26/2007 01/23/2010 Lichenification and lichen simplex chronicus 01/23/2010 DERMATOFIBROMA///BENIGN KAILEY SKIN ARM 03/26/2007 01/23/2010 Contact dermatitis and other eczema, due to unspecified cause 03/26/2007 01/23/2010 Transient hypertension of , antepartum 06/19/2006 07/02/2006 Supervision of normal first 11/09/2005 07/02/2006 documented as of this encounter (statuses as of 03/29/2022) [facility] Narrative* Problem Noted Date Resolved Date Routine general medical exam ination at a health care facility 12/06/2012 02/22/2014 Routine general medical exam ination at a health care facility 01/23/2010 12/06/2012 Overview: 01/23/2010, from Dr. White Routine gynecological examination 01/23/2010 02/22/2014 SACROILIITIS 05/06/2009 01/23/2010 KERATOSIS PILARIS////SKIN ANOMALY NEC 03/26/2007 01/23/2010 FOLLICULITIS///HAIR DISEASES NEC 03/26/2007 01/23/2010 Lichenification and lichen simplex chronicus 01/23/2010 DERMATOFIBROMA///BENIGN KAILEY SKIN ARM 03/26/2007 01/23/2010 Contact dermatitis and other eczema, due to unspecified cause 03/26/2007 01/23/2010 Transient hypertension of , antepartum 06/19/2006 07/02/2006 Supervision of normal first 11/09/2005 07/02/2006 documented as of this encounter (statuses as of 03/30/2022) [facility] Narrative* Problem Noted Date Resolved Date Routine general medical exam ination at a health care facility 12/06/2012 02/22/2014 Routine general medical exam ination at a health care facility 01/23/2010 12/06/2012 Overview: 01/23/2010, from Dr. White Routine gynecological examination 01/23/2010 02/22/2014 SACROILIITIS 05/06/2009 01/23/2010 KERATOSIS PILARIS////SKIN ANOMALY NEC 03/26/2007 01/23/2010 FOLLICULITIS///HAIR DISEASES NEC 03/26/2007 01/23/2010 Lichenification and lichen simplex chronicus 01/23/2010 DERMATOFIBROMA///BENIGN KAILEY SKIN ARM 03/26/2007 01/23/2010 Contact dermatitis and other eczema, due to unspecified cause 03/26/2007 01/23/2010 Transient hypertension of , antepartum 06/19/2006 07/02/2006 Supervision of normal first 11/09/2005 07/02/2006 documented as of this encounter (statuses as of 04/05/2022) [facility] Narrative* Problem Noted Date Resolved Date Routine general medical exam ination at a health care facility 12/06/2012 02/22/2014 Routine general medical exam ination at a health care facility 01/23/2010 12/06/2012 Overview: 01/23/2010, from Dr. White Routine gynecological examination 01/23/2010 02/22/2014 SACROILIITIS 05/06/2009 01/23/2010 KERATOSIS PILARIS////SKIN ANOMALY NEC 03/26/2007 01/23/2010 FOLLICULITIS///HAIR DISEASES NEC 03/26/2007 01/23/2010 Lichenification and lichen simplex chronicus 01/23/2010 DERMATOFIBROMA///BENIGN KAILEY SKIN ARM 03/26/2007 01/23/2010 Contact dermatitis and other eczema, due to unspecified cause 03/26/2007 01/23/2010 Transient hypertension of , antepartum 06/19/2006 07/02/2006 Supervision of normal first 11/09/2005 07/02/2006 documented as of this encounter (statuses as of 04/09/2022) [facility] Narrative* Problem Noted Date Resolved Date Routine general medical exam ination at a health care facility 12/06/2012 02/22/2014 Routine general medical exam ination at a health care facility 01/23/2010 12/06/2012 Overview: 01/23/2010, from Dr. White Routine gynecological examination 01/23/2010 02/22/2014 SACROILIITIS 05/06/2009 01/23/2010 KERATOSIS PILARIS////SKIN ANOMALY NEC 03/26/2007 01/23/2010 FOLLICULITIS///HAIR DISEASES NEC 03/26/2007 01/23/2010 Lichenification and lichen simplex chronicus 01/23/2010 DERMATOFIBROMA///BENIGN KAILEY SKIN ARM 03/26/2007 01/23/2010 Contact dermatitis and other eczema, due to unspecified cause 03/26/2007 01/23/2010 Transient hypertension of , antepartum 06/19/2006 07/02/2006 Supervision of normal first 11/09/2005 07/02/2006 documented as of this encounter (statuses as of 04/10/2022) [facility] Narrative* Problem Noted Date Resolved Date Routine general medical exam ination at a health care facility 12/06/2012 02/22/2014 Routine general medical exam ination at a health care facility 01/23/2010 12/06/2012 Overview: 01/23/2010, from Dr. White Routine gynecological examination 01/23/2010 02/22/2014 SACROILIITIS 05/06/2009 01/23/2010 KERATOSIS PILARIS////SKIN ANOMALY NEC 03/26/2007 01/23/2010 FOLLICULITIS///HAIR DISEASES NEC 03/26/2007 01/23/2010 Lichenification and lichen simplex chronicus 01/23/2010 DERMATOFIBROMA///BENIGN KAILEY SKIN ARM 03/26/2007 01/23/2010 Contact dermatitis and other eczema, due to unspecified cause 03/26/2007 01/23/2010 Transient hypertension of , antepartum 06/19/2006 07/02/2006 Supervision of normal first 11/09/2005 07/02/2006 documented as of this encounter (statuses as of 04/16/2022) [facility] Narrative* Problem Noted Date Resolved Date Routine general medical exam ination at a health care facility 12/06/2012 02/22/2014 Routine general medical exam ination at a health care facility 01/23/2010 12/06/2012 Overview: 01/23/2010, from Dr. White Routine gynecological examination 01/23/2010 02/22/2014 SACROILIITIS 05/06/2009 01/23/2010 KERATOSIS PILARIS////SKIN ANOMALY NEC 03/26/2007 01/23/2010 FOLLICULITIS///HAIR DISEASES NEC 03/26/2007 01/23/2010 Lichenification and lichen simplex chronicus 01/23/2010 DERMATOFIBROMA///BENIGN KAILEY SKIN ARM 03/26/2007 01/23/2010 Contact dermatitis and other eczema, due to unspecified cause 03/26/2007 01/23/2010 Transient hypertension of , antepartum 06/19/2006 07/02/2006 Supervision of normal first 11/09/2005 07/02/2006 documented as of this encounter (statuses as of 04/16/2022) [facility] Narrative* Problem Noted Date Resolved Date Routine general medical exam ination at a health care facility 12/06/2012 02/22/2014 Routine general medical exam ination at a health care facility 01/23/2010 12/06/2012 Overview: 01/23/2010, from Dr. White Routine gynecological examination 01/23/2010 02/22/2014 SACROILIITIS 05/06/2009 01/23/2010 KERATOSIS PILARIS////SKIN ANOMALY NEC 03/26/2007 01/23/2010 FOLLICULITIS///HAIR DISEASES NEC 03/26/2007 01/23/2010 Lichenification and lichen simplex chronicus 01/23/2010 DERMATOFIBROMA///BENIGN KAILEY SKIN ARM 03/26/2007 01/23/2010 Contact dermatitis and other eczema, due to unspecified cause 03/26/2007 01/23/2010 Transient hypertension of , antepartum 06/19/2006 07/02/2006 Supervision of normal first 11/09/2005 07/02/2006 documented as of this encounter (statuses as of 04/19/2022) [facility] Narrative* Problem Noted Date Resolved Date Routine general medical exam ination at a health care facility 12/06/2012 02/22/2014 Routine general medical exam ination at a health care facility 01/23/2010 12/06/2012 Overview: 01/23/2010, from Dr. White Routine gynecological examination 01/23/2010 02/22/2014 SACROILIITIS 05/06/2009 01/23/2010 KERATOSIS PILARIS////SKIN ANOMALY NEC 03/26/2007 01/23/2010 FOLLICULITIS///HAIR DISEASES NEC 03/26/2007 01/23/2010 Lichenification and lichen simplex chronicus 01/23/2010 DERMATOFIBROMA///BENIGN KAILEY SKIN ARM 03/26/2007 01/23/2010 Contact dermatitis and other eczema, due to unspecified cause 03/26/2007 01/23/2010 Transient hypertension of , antepartum 06/19/2006 07/02/2006 Supervision of normal first 11/09/2005 07/02/2006 documented as of this encounter (statuses as of 05/01/2022) [facility]02-02-2013 History of Past illness Narrative* Problem Noted Date Resolved Date Routine general medical exam ination at a health care facility 12/06/2012 02/22/2014 Routine general medical exam ination at a health care facility 01/23/2010 12/06/2012 Overview: 01/23/2010, from Dr. White Routine gynecological examination 01/23/2010 02/22/2014 SACROILIITIS 05/06/2009 01/23/2010 KERATOSIS PILARIS////SKIN ANOMALY NEC 03/26/2007 01/23/2010 FOLLICULITIS///HAIR DISEASES NEC 03/26/2007 01/23/2010 Lichenification and lichen simplex chronicus 01/23/2010 DERMATOFIBROMA///BENIGN KAILEY SKIN ARM 03/26/2007 01/23/2010 Contact dermatitis and other eczema, due to unspecified cause 03/26/2007 01/23/2010 Transient hypertension of , antepartum 06/19/2006 07/02/2006 Supervision of normal first 11/09/2005 07/02/2006 documented as of this encounter (statuses as of 05/03/2022) [facility]02-02-2013 History of Past illness Narrative* Problem Noted Date Resolved Date Routine general medical exam ination at a health care facility 12/06/2012 02/22/2014 Routine general medical exam ination at a health care facility 01/23/2010 12/06/2012 Overview: 01/23/2010, from Dr. White Routine gynecological examination 01/23/2010 02/22/2014 SACROILIITIS 05/06/2009 01/23/2010 KERATOSIS PILARIS////SKIN ANOMALY NEC 03/26/2007 01/23/2010 FOLLICULITIS///HAIR DISEASES NEC 03/26/2007 01/23/2010 Lichenification and lichen simplex chronicus 01/23/2010 DERMATOFIBROMA///BENIGN KAILEY SKIN ARM 03/26/2007 01/23/2010 Contact dermatitis and other eczema, due to unspecified cause 03/26/2007 01/23/2010 Transient hypertension of , antepartum 06/19/2006 07/02/2006 Supervision of normal first 11/09/2005 07/02/2006 documented as of this encounter (statuses as of 05/08/2022) [facility]02[facility]2013 History of Past illness Narrative* Problem Noted Date Resolved Date Routine general medical exam ination at a health care facility 12/06/2012 02/22/2014 Routine general medical exam ination at a health care facility 01/23/2010 12/06/2012 Overview: 01/23/2010, from Dr. White Routine gynecological examination 01/23/2010 02/22/2014 SACROILIITIS 05/06/2009 01/23/2010 KERATOSIS PILARIS////SKIN ANOMALY NEC 03/26/2007 01/23/2010 FOLLICULITIS///HAIR DISEASES NEC 03/26/2007 01/23/2010 Lichenification and lichen simplex chronicus 01/23/2010 DERMATOFIBROMA///BENIGN KAILEY SKIN ARM 03/26/2007 01/23/2010 Contact dermatitis and other eczema, due to unspecified cause 03/26/2007 01/23/2010 Transient hypertension of , antepartum 06/19/2006 07/02/2006 Supervision of normal first 11/09/2005 07/02/2006 documented as of this encounter (statuses as of 05/10/2022) [facility]2013 History of Past illness Narrative* Problem Noted Date Resolved Date Routine general medical exam ination at a health care facility 12/06/2012 02/22/2014 Routine general medical exam ination at a health care facility 01/23/2010 12/06/2012 Overview: 01/23/2010, from Dr. White Routine gynecological examination 01/23/2010 02/22/2014 SACROILIITIS 05/06/2009 01/23/2010 KERATOSIS PILARIS////SKIN ANOMALY NEC 03/26/2007 01/23/2010 FOLLICULITIS///HAIR DISEASES NEC 03/26/2007 01/23/2010 Lichenification and lichen simplex chronicus 01/23/2010 DERMATOFIBROMA///BENIGN KAILEY SKIN ARM 03/26/2007 01/23/2010 Contact dermatitis and other eczema, due to unspecified cause 03/26/2007 01/23/2010 Transient hypertension of , antepartum 06/19/2006 07/02/2006 Supervision of normal first 11/09/2005 07/02/2006 documented as of this encounter (statuses as of 05/11/2022) [facility]2013 History of Past illness Narrative* Problem Noted Date Resolved Date Routine general medical exam ination at a health care facility 12/06/2012 02/22/2014 Routine general medical exam ination at a health care facility 01/23/2010 12/06/2012 Overview: 01/23/2010, from Dr. White Routine gynecological examination 01/23/2010 02/22/2014 SACROILIITIS 05/06/2009 01/23/2010 KERATOSIS PILARIS////SKIN ANOMALY NEC 03/26/2007 01/23/2010 FOLLICULITIS///HAIR DISEASES NEC 03/26/2007 01/23/2010 Lichenification and lichen simplex chronicus 01/23/2010 DERMATOFIBROMA///BENIGN KAILEY SKIN ARM 03/26/2007 01/23/2010 Contact dermatitis and other eczema, due to unspecified cause 03/26/2007 01/23/2010 Transient hypertension of , antepartum 06/19/2006 07/02/2006 Supervision of normal first 11/09/2005 07/02/2006 documented as of this encounter (statuses as of 05/25/2022) [facility]2013 History of Past illness Narrative* Problem Noted Date Resolved Date Routine general medical exam ination at a health care facility 12/06/2012 02/22/2014 Routine general medical exam ination at a health care facility 01/23/2010 12/06/2012 Overview: 01/23/2010, from Dr. White Routine gynecological examination 01/23/2010 02/22/2014 SACROILIITIS 05/06/2009 01/23/2010 KERATOSIS PILARIS////SKIN ANOMALY NEC 03/26/2007 01/23/2010 FOLLICULITIS///HAIR DISEASES NEC 03/26/2007 01/23/2010 Lichenification and lichen simplex chronicus 01/23/2010 DERMATOFIBROMA///BENIGN KAILEY SKIN ARM 03/26/2007 01/23/2010 Contact dermatitis and other eczema, due to unspecified cause 03/26/2007 01/23/2010 Transient hypertension of , antepartum 06/19/2006 07/02/2006 Supervision of normal first 11/09/2005 07/02/2006 documented as of this encounter (statuses as of 05/29/2022) [facility]2013 History of Past illness Narrative* Problem Noted Date Resolved Date Routine general medical exam ination at a health care facility 12/06/2012 02/22/2014 Routine general medical exam ination at a health care facility 01/23/2010 12/06/2012 Overview: 01/23/2010, from Dr. White Routine gynecological examination 01/23/2010 02/22/2014 SACROILIITIS 05/06/2009 01/23/2010 KERATOSIS PILARIS////SKIN ANOMALY NEC 03/26/2007 01/23/2010 FOLLICULITIS///HAIR DISEASES NEC 03/26/2007 01/23/2010 Lichenification and lichen simplex chronicus 01/23/2010 DERMATOFIBROMA///BENIGN KAILEY SKIN ARM 03/26/2007 01/23/2010 Contact dermatitis and other eczema, due to unspecified cause 03/26/2007 01/23/2010 Transient hypertension of , antepartum 06/19/2006 07/02/2006 Supervision of normal first 11/09/2005 07/02/2006 documented as of this encounter (statuses as of 06/05/2022) [facility]2013 History of Past illness Narrative* Problem Noted Date Resolved Date Routine general medical exam ination at a health care facility 12/06/2012 02/22/2014 Routine general medical exam ination at a health care facility 01/23/2010 12/06/2012 Overview: 01/23/2010, from Dr. White Routine gynecological examination 01/23/2010 02/22/2014 SACROILIITIS 05/06/2009 01/23/2010 KERATOSIS PILARIS////SKIN ANOMALY NEC 03/26/2007 01/23/2010 FOLLICULITIS///HAIR DISEASES NEC 03/26/2007 01/23/2010 Lichenification and lichen simplex chronicus 01/23/2010 DERMATOFIBROMA///BENIGN KAILEY SKIN ARM 03/26/2007 01/23/2010 Contact dermatitis and other eczema, due to unspecified cause 03/26/2007 01/23/2010 Transient hypertension of , antepartum 06/19/2006 07/02/2006 Supervision of normal first 11/09/2005 07/02/2006 documented as of this encounter (statuses as of 06/05/2022) [facility]2013 History of Past illness Narrative* Problem Noted Date Resolved Date Routine general medical exam ination at a health care facility 12/06/2012 02/22/2014 Routine general medical exam ination at a health care facility 01/23/2010 12/06/2012 Overview: 01/23/2010, from Dr. White Routine gynecological examination 01/23/2010 02/22/2014 SACROILIITIS 05/06/2009 01/23/2010 KERATOSIS PILARIS////SKIN ANOMALY NEC 03/26/2007 01/23/2010 FOLLICULITIS///HAIR DISEASES NEC 03/26/2007 01/23/2010 Lichenification and lichen simplex chronicus 01/23/2010 DERMATOFIBROMA///BENIGN KAILEY SKIN ARM 03/26/2007 01/23/2010 Contact dermatitis and other eczema, due to unspecified cause 03/26/2007 01/23/2010 Transient hypertension of , antepartum 06/19/2006 07/02/2006 Supervision of normal first 11/09/2005 07/02/2006 documented as of this encounter (statuses as of 06/07/2022) [facility]2013 History of Past illness Narrative* Problem Noted Date Resolved Date Routine general medical exam ination at a health care facility 12/06/2012 02/22/2014 Routine general medical exam ination at a health care facility 01/23/2010 12/06/2012 Overview: 01/23/2010, from Dr. White Routine gynecological examination 01/23/2010 02/22/2014 SACROILIITIS 05/06/2009 01/23/2010 KERATOSIS PILARIS////SKIN ANOMALY NEC 03/26/2007 01/23/2010 FOLLICULITIS///HAIR DISEASES NEC 03/26/2007 01/23/2010 Lichenification and lichen simplex chronicus 01/23/2010 DERMATOFIBROMA///BENIGN KAILEY SKIN ARM 03/26/2007 01/23/2010 Contact dermatitis and other eczema, due to unspecified cause 03/26/2007 01/23/2010 Transient hypertension of , antepartum 06/19/2006 07/02/2006 Supervision of normal first 11/09/2005 07/02/2006 documented as of this encounter (statuses as of 06/07/2022) [facility]2013 History of Past illness Narrative* Problem Noted Date Resolved Date Routine general medical exam ination at a health care facility 12/06/2012 02/22/2014 Routine general medical exam ination at a health care facility 01/23/2010 12/06/2012 Overview: 01/23/2010, from Dr. White Routine gynecological examination 01/23/2010 02/22/2014 SACROILIITIS 05/06/2009 01/23/2010 KERATOSIS PILARIS////SKIN ANOMALY NEC 03/26/2007 01/23/2010 FOLLICULITIS///HAIR DISEASES NEC 03/26/2007 01/23/2010 Lichenification and lichen simplex chronicus 01/23/2010 DERMATOFIBROMA///BENIGN KAILEY SKIN ARM 03/26/2007 01/23/2010 Contact dermatitis and other eczema, due to unspecified cause 03/26/2007 01/23/2010 Transient hypertension of , antepartum 06/19/2006 07/02/2006 Supervision of normal first 11/09/2005 07/02/2006 documented as of this encounter (statuses as of 06/22/2022) [facility]2013 History of Past illness Narrative* Problem Noted Date Resolved Date Routine general medical exam ination at a health care facility 12/06/2012 02/22/2014 Routine general medical exam ination at a health care facility 01/23/2010 12/06/2012 Overview: 01/23/2010, from Dr. hWite Routine gynecological examination 01/23/2010 02/22/2014 SACROILIITIS 05/06/2009 01/23/2010 KERATOSIS PILARIS////SKIN ANOMALY NEC 03/26/2007 01/23/2010 FOLLICULITIS///HAIR DISEASES NEC 03/26/2007 01/23/2010 Lichenification and lichen simplex chronicus 01/23/2010 DERMATOFIBROMA///BENIGN KAILEY SKIN ARM 03/26/2007 01/23/2010 Contact dermatitis and other eczema, due to unspecified cause 03/26/2007 01/23/2010 Transient hypertension of , antepartum 06/19/2006 07/02/2006 Supervision of normal first 11/09/2005 07/02/2006 documented as of this encounter (statuses as of 07/03/2022) [facility]2013 History of Past illness Narrative* Problem Noted Date Resolved Date Routine general medical exam ination at a health care facility 12/06/2012 02/22/2014 Routine general medical exam ination at a health care facility 01/23/2010 12/06/2012 Overview: 01/23/2010, from Dr. White Routine gynecological examination 01/23/2010 02/22/2014 SACROILIITIS 05/06/2009 01/23/2010 KERATOSIS PILARIS////SKIN ANOMALY NEC 03/26/2007 01/23/2010 FOLLICULITIS///HAIR DISEASES NEC 03/26/2007 01/23/2010 Lichenification and lichen simplex chronicus 01/23/2010 DERMATOFIBROMA///BENIGN KAILEY SKIN ARM 03/26/2007 01/23/2010 Contact dermatitis and other eczema, due to unspecified cause 03/26/2007 01/23/2010 Transient hypertension of , antepartum 06/19/2006 07/02/2006 Supervision of normal first 11/09/2005 07/02/2006 documented as of this encounter (statuses as of 07/10/2022) [facility]2013 History of Past illness Narrative* Problem Noted Date Resolved Date Routine general medical exam ination at a health care facility 12/06/2012 02/22/2014 Routine general medical exam ination at a health care facility 01/23/2010 12/06/2012 Overview: 01/23/2010, from Dr. White Routine gynecological examination 01/23/2010 02/22/2014 SACROILIITIS 05/06/2009 01/23/2010 KERATOSIS PILARIS////SKIN ANOMALY NEC 03/26/2007 01/23/2010 FOLLICULITIS///HAIR DISEASES NEC 03/26/2007 01/23/2010 Lichenification and lichen simplex chronicus 01/23/2010 DERMATOFIBROMA///BENIGN KAILEY SKIN ARM 03/26/2007 01/23/2010 Contact dermatitis and other eczema, due to unspecified cause 03/26/2007 01/23/2010 Transient hypertension of , antepartum 06/19/2006 07/02/2006 Supervision of normal first 11/09/2005 07/02/2006 documented as of this encounter (statuses as of 07/19/2022) [facility]2013 History of Past illness Narrative* Problem Noted Date Resolved Date Routine general medical exam ination at a health care facility 12/06/2012 02/22/2014 Routine general medical exam ination at a health care facility 01/23/2010 12/06/2012 Overview: 01/23/2010, from Dr. White Routine gynecological examination 01/23/2010 02/22/2014 SACROILIITIS 05/06/2009 01/23/2010 KERATOSIS PILARIS////SKIN ANOMALY NEC 03/26/2007 01/23/2010 FOLLICULITIS///HAIR DISEASES NEC 03/26/2007 01/23/2010 Lichenification and lichen simplex chronicus 01/23/2010 DERMATOFIBROMA///BENIGN KAILEY SKIN ARM 03/26/2007 01/23/2010 Contact dermatitis and other eczema, due to unspecified cause 03/26/2007 01/23/2010 Transient hypertension of , antepartum 06/19/2006 07/02/2006 Supervision of normal first 11/09/2005 07/02/2006 documented as of this encounter (statuses as of 07/19/2022) [facility]2013 History of Past illness Narrative* Problem Noted Date Resolved Date Routine general medical exam ination at a health care facility 12/06/2012 02/22/2014 Routine general medical exam ination at a health care facility 01/23/2010 12/06/2012 Overview: 01/23/2010, from Dr. White Routine gynecological examination 01/23/2010 02/22/2014 SACROILIITIS 05/06/2009 01/23/2010 KERATOSIS PILARIS////SKIN ANOMALY NEC 03/26/2007 01/23/2010 FOLLICULITIS///HAIR DISEASES NEC 03/26/2007 01/23/2010 Lichenification and lichen simplex chronicus 01/23/2010 DERMATOFIBROMA///BENIGN KAILEY SKIN ARM 03/26/2007 01/23/2010 Contact dermatitis and other eczema, due to unspecified cause 03/26/2007 01/23/2010 Transient hypertension of , antepartum 06/19/2006 07/02/2006 Supervision of normal first 11/09/2005 07/02/2006 documented as of this encounter (statuses as of 07/23/2022) [facility]2013 History of Past illness Narrative* Problem Noted Date Resolved Date Routine general medical exam ination at a health care facility 12/06/2012 02/22/2014 Routine general medical exam ination at a health care facility 01/23/2010 12/06/2012 Overview: 01/23/2010, from Dr. White Routine gynecological examination 01/23/2010 02/22/2014 SACROILIITIS 05/06/2009 01/23/2010 KERATOSIS PILARIS////SKIN ANOMALY NEC 03/26/2007 01/23/2010 FOLLICULITIS///HAIR DISEASES NEC 03/26/2007 01/23/2010 Lichenification and lichen simplex chronicus 01/23/2010 DERMATOFIBROMA///BENIGN KAILEY SKIN ARM 03/26/2007 01/23/2010 Contact dermatitis and other eczema, due to unspecified cause 03/26/2007 01/23/2010 Transient hypertension of , antepartum 06/19/2006 07/02/2006 Supervision of normal first 11/09/2005 07/02/2006 documented as of this encounter (statuses as of 08/01/2022) [facility]2013 History of Past illness Narrative* Problem Noted Date Resolved Date Routine general medical exam ination at a health care facility 12/06/2012 02/22/2014 Routine general medical exam ination at a health care facility 01/23/2010 12/06/2012 Overview: 01/23/2010, from Dr. White Routine gynecological examination 01/23/2010 02/22/2014 SACROILIITIS 05/06/2009 01/23/2010 KERATOSIS PILARIS////SKIN ANOMALY NEC 03/26/2007 01/23/2010 FOLLICULITIS///HAIR DISEASES NEC 03/26/2007 01/23/2010 Lichenification and lichen simplex chronicus 01/23/2010 DERMATOFIBROMA///BENIGN KAILEY SKIN ARM 03/26/2007 01/23/2010 Contact dermatitis and other eczema, due to unspecified cause 03/26/2007 01/23/2010 Transient hypertension of , antepartum 06/19/2006 07/02/2006 Supervision of normal first 11/09/2005 07/02/2006 documented as of this encounter (statuses as of 08/02/2022) [facility] History of Past illness Narrative* Problem Noted Date Resolved Date Routine general medical exam ination at a health care facility 12/06/2012 02/22/2014 Routine general medical exam ination at a health care facility 01/23/2010 12/06/2012 Overview: 01/23/2010, from Dr. White Routine gynecological examination 01/23/2010 02/22/2014 SACROILIITIS 05/06/2009 01/23/2010 KERATOSIS PILARIS////SKIN ANOMALY NEC 03/26/2007 01/23/2010 FOLLICULITIS///HAIR DISEASES NEC 03/26/2007 01/23/2010 Lichenification and lichen simplex chronicus 01/23/2010 DERMATOFIBROMA///BENIGN KAILEY SKIN ARM 03/26/2007 01/23/2010 Contact dermatitis and other eczema, due to unspecified cause 03/26/2007 01/23/2010 Transient hypertension of , antepartum 06/19/2006 07/02/2006 Supervision of normal first 11/09/2005 07/02/2006 documented as of this encounter (statuses as of 08/03/2022) [facility] History of Past illness Narrative* Problem Noted Date Resolved Date Routine general medical exam ination at a health care facility 12/06/2012 02/22/2014 Routine general medical exam ination at a health care facility 01/23/2010 12/06/2012 Overview: 01/23/2010, from Dr. White Routine gynecological examination 01/23/2010 02/22/2014 SACROILIITIS 05/06/2009 01/23/2010 KERATOSIS PILARIS////SKIN ANOMALY NEC 03/26/2007 01/23/2010 FOLLICULITIS///HAIR DISEASES NEC 03/26/2007 01/23/2010 Lichenification and lichen simplex chronicus 01/23/2010 DERMATOFIBROMA///BENIGN KAILEY SKIN ARM 03/26/2007 01/23/2010 Contact dermatitis and other eczema, due to unspecified cause 03/26/2007 01/23/2010 Transient hypertension of , antepartum 06/19/2006 07/02/2006 Supervision of normal first 11/09/2005 07/02/2006 documented as of this encounter (statuses as of 08/06/2022) [facility] History of Past illness Narrative* Problem Noted Date Resolved Date Routine general medical exam ination at a health care facility 12/06/2012 02/22/2014 Routine general medical exam ination at a health care facility 01/23/2010 12/06/2012 Overview: 01/23/2010, from Dr. White Routine gynecological examination 01/23/2010 02/22/2014 SACROILIITIS 05/06/2009 01/23/2010 KERATOSIS PILARIS////SKIN ANOMALY NEC 03/26/2007 01/23/2010 FOLLICULITIS///HAIR DISEASES NEC 03/26/2007 01/23/2010 Lichenification and lichen simplex chronicus 01/23/2010 DERMATOFIBROMA///BENIGN KAILEY SKIN ARM 03/26/2007 01/23/2010 Contact dermatitis and other eczema, due to unspecified cause 03/26/2007 01/23/2010 Transient hypertension of , antepartum 06/19/2006 07/02/2006 Supervision of normal first 11/09/2005 07/02/2006 documented as of this encounter (statuses as of 08/08/2022) [facility] History of Past illness Narrative* Problem Noted Date Resolved Date Routine general medical exam ination at a health care facility 12/06/2012 02/22/2014 Routine general medical exam ination at a health care facility 01/23/2010 12/06/2012 Overview: 01/23/2010, from Dr. White Routine gynecological examination 01/23/2010 02/22/2014 SACROILIITIS 05/06/2009 01/23/2010 KERATOSIS PILARIS////SKIN ANOMALY NEC 03/26/2007 01/23/2010 FOLLICULITIS///HAIR DISEASES NEC 03/26/2007 01/23/2010 Lichenification and lichen simplex chronicus 01/23/2010 DERMATOFIBROMA///BENIGN KAILEY SKIN ARM 03/26/2007 01/23/2010 Contact dermatitis and other eczema, due to unspecified cause 03/26/2007 01/23/2010 Transient hypertension of , antepartum 06/19/2006 07/02/2006 Supervision of normal first 11/09/2005 07/02/2006 documented as of this encounter (statuses as of 08/08/2022) [facility] History of Past illness Narrative* Problem Noted Date Resolved Date Routine general medical exam ination at a health care facility 12/06/2012 02/22/2014 Routine general medical exam ination at a health care facility 01/23/2010 12/06/2012 Overview: 01/23/2010, from Dr. White Routine gynecological examination 01/23/2010 02/22/2014 SACROILIITIS 05/06/2009 01/23/2010 KERATOSIS PILARIS////SKIN ANOMALY NEC 03/26/2007 01/23/2010 FOLLICULITIS///HAIR DISEASES NEC 03/26/2007 01/23/2010 Lichenification and lichen simplex chronicus 01/23/2010 DERMATOFIBROMA///BENIGN KAILEY SKIN ARM 03/26/2007 01/23/2010 Contact dermatitis and other eczema, due to unspecified cause 03/26/2007 01/23/2010 Transient hypertension of , antepartum 06/19/2006 07/02/2006 Supervision of normal first 11/09/2005 07/02/2006 documented as of this encounter (statuses as of 08/08/2022) [facility] History of Past illness Narrative* Problem Noted Date Resolved Date Routine general medical exam ination at a health care facility 12/06/2012 02/22/2014 Routine general medical exam ination at a health care facility 01/23/2010 12/06/2012 Overview: 01/23/2010, from Dr. White Routine gynecological examination 01/23/2010 02/22/2014 SACROILIITIS 05/06/2009 01/23/2010 KERATOSIS PILARIS////SKIN ANOMALY NEC 03/26/2007 01/23/2010 FOLLICULITIS///HAIR DISEASES NEC 03/26/2007 01/23/2010 Lichenification and lichen simplex chronicus 01/23/2010 DERMATOFIBROMA///BENIGN KAILEY SKIN ARM 03/26/2007 01/23/2010 Contact dermatitis and other eczema, due to unspecified cause 03/26/2007 01/23/2010 Transient hypertension of , antepartum 06/19/2006 07/02/2006 Supervision of normal first 11/09/2005 07/02/2006 documented as of this encounter (statuses as of 08/27/2022) [facility] History of Past illness Narrative* Problem Noted Date Resolved Date Routine general medical exam ination at a health care facility 12/06/2012 02/22/2014 Routine general medical exam ination at a health care facility 01/23/2010 12/06/2012 Overview: 01/23/2010, from Dr. White Routine gynecological examination 01/23/2010 02/22/2014 SACROILIITIS 05/06/2009 01/23/2010 KERATOSIS PILARIS////SKIN ANOMALY NEC 03/26/2007 01/23/2010 FOLLICULITIS///HAIR DISEASES NEC 03/26/2007 01/23/2010 Lichenification and lichen simplex chronicus 01/23/2010 DERMATOFIBROMA///BENIGN KAILEY SKIN ARM 03/26/2007 01/23/2010 Contact dermatitis and other eczema, due to unspecified cause 03/26/2007 01/23/2010 Transient hypertension of , antepartum 06/19/2006 07/02/2006 Supervision of normal first 11/09/2005 07/02/2006 documented as of this encounter (statuses as of 09/03/2022) [facility] complaint+Reason for visit Narrative* Chief Complaint Back pain Back pain COVID-19 Back pain LBP Back pain LUMBER SPINE ARM NUMBNESS LEFT, TOS PROTOCOL Back pain Back pain Back pain LUMBAR DISC/ DN/ RX HERE Reason for Visit Segmental and somati c dysfunction of cervical region Segmental and somatic dysfunction of lumbar region Segmental and somatic dysfunction of pelvic region Segmental and somatic dysfunction of thoracic region Degeneration of intervertebral disc of lumbosacral region Segmental and somatic dysfunction of cervical region Segmental and somatic dysfunction of lumbar region Segmental and somatic dysfunction of pelvic region Segmental and somatic dysfunction of thoracic region Disc displacement, lumbar Segmental and somatic dysfunction of cervical region Segmental and somatic dysfunction of lumbar region Segmental and somatic dysfunction of pelvic region Segmental and somatic dysfunction of thoracic region Disc displacement, lumbar Segmental and somatic dysfunction of lumbar region Segmental and somatic dysfunction of pelvic region Segmental and somatic dysfunction of thoracic region Disc displacement, lumbar 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 Segmental and somatic dysfunction of pelvic region Segmental and somatic dysfunction of thoracic region Degeneration of intervertebral disc of lumbosacral region Disc displacement, lumbar Segmental and somatic dysfunction of cervical region Segmental and somatic dysfunction of lumbar region Segmental and somatic dysfunction of pelvic region Segmental and somatic dysfunction of thoracic region Disc displacement, lumbar Back pain Segmental and somatic dysfunction of cervical region Segmental and somatic dysfunction of lumbar region Segmental and somatic dysfunction of pelvic region Segmental and somatic dysfunction of thoracic region Disc displacement, lumbar [facility] Work Phone: Discharge summary Author Sam Pearl [facility] February 04, 2024 3:49am Note Date/Time February 04, 2024 2:07 am [facility] Medical Records Department [address] [place] [address] Emergency Department Summary 02/04/24 MR#: [id number] Acct: [id number] Name: TORI GRAY Rep #:[id number] : 1980 43 From: Sam Pearl MD PCP: Dr. Ivette Grimes MD Status:REG E R Location: ED HPI History of Present Illness Chief Complaint: Dizziness Informant: patient Narrative Narrative: Patient has multiple complaints, she states she is felt like she started gettingsick 4-5 days ago with subjective fevers, cough, some occasional shortness of breath especially when she lies down, migraine which she has a longstanding history of with right frontal and retro-orbital headache, nasal congestion, leftearache, and intermittent vertigo whenever she would change positions which she has a history of and is taking meclizine for. Tonight, she was laying down to go to sleep, had not fallen asleep yet but was suddenly starting having visual disturbances. They look like flashes of light, they look like seeing bugs in her visual cardenas, right now she does not have that when her eyes are open and her vision seems normal but whenever she closes her eyes she is seeing black and white. Also earlier she was saying things to her daughter that did not make any sense. She was saying something about going to the blue or green room and her daughter said that what ever she was saying did not make any sense and she was saying yes, we have to go there. She is insightful that that does notmake any sense right now, and she does not know why she was saying that at the time does not recall what exact symptoms she had at that time. She denies any sudden onset of headache, she states the headache that she has had since feels like a migraine and has been pretty typical for her otherwise till this tonight. In addition, abnormal for her, for the past 4 or 5 days she has been extremely thirsty, drinking a ton of water, and urinating a lot as well. She is diabetic and her blood sugars been okay and her last A1c was in the 5.1 range. [facility] Medical History Abnormal ECG Acute bronchitis Acute cholecystitis Acute kidney injury Acute respiratory insufficiency Anxiety Back pain Calculus of left kidney Degeneration of intervertebral disc of lumbosacral region Disc displacement, lumbar Dyspnea Dysuria Elevated triglycerides with high cholesterol Fatty liver History of obstructive sleep apnea History of stent into kidney Hydronephrosis, left Hydroureter, left Hypertension 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 Left shoulder pain Left shoulder strain Left upper extremity numbness Left upper quadrant abdominal pain Lumbar facet arthropathy Lumbosacral spondylosis Microalbuminuria Migraines Nausea Nephrolithiasis Nonalcoholic hepatosteatosis Obesity Obstructive Sleep Apnea-Hypopnea Syndrome LETITIA (obstructive sleep apnea) Pain of left scapula Prolonged Q-T interval on ECG Pyelonephritis Radiculopathy of lumbosacral region Segmental and somatic dysfunction of cervical region Segmental and somatic dysfunction of lumbar region Segmental and somatic dysfunction of pelvic region Segmental and somatic dysfunction of thoracic region Type 2 diabetes mellitus Type 2 diabetes mellitus with microalbuminuria Type 2 diabetes mellitus without complication, with long-term current use of insulin Urinary tract infection Vertigo Home Medications blood sugar diagnostic (Blood Glucose Test strips) #10 ea 04/26/20 [History Last Taken Unknown] ipratropium bromide 21 mcg (0.03 %) nasal spray 2 spray intranasal BID [id number]/20/20 [History Last Taken 08/03/23] omega-3 fatty acids 1,000 mg capsule (Fish Oil Concentrate) 1,000 mg PO DAILY supplement 02/21/21 [History Last Taken 08/05/23] albuterol sulfate 90 mcg/actuation aerosol inhaler 2 puff inhalation Q4H PRN shortness of breath or wheezing 08/10/22 [History Last Taken 08/03/23] dulaglutide 0.75 mg/0.5 mL subcutaneous pen injector (Trulicity) 0.75 mg subcut QWEEK diabetes 08/10/22 [History Last Taken 07/29/23] fexofenadine 180 mg tablet (Allergy Relief (fexofenadine)) 180 mg PO DAILY allergies 08/10/22 [History Last Taken 08/05/23] levonorgestrel 17.5 mcg/24 hrs (5yrs) 19.5mg intrauterine device 1 device intrauterine ONCE control 08/10/22 [History Last Taken Unknown] tizanidine 4 mg tablet 4 mg PO Q8H PRN Muscle Spasm 08/10/22 [History Last Taken 08/04/23] omeprazole 20 mg capsule,delayed release 20 mg PO DAILY PRN gerd 08/16/22 [History Last Taken Unknown] topiramate 100 mg tablet 100 mg PO BID seizures 08/16/22 [History Last Taken 08/05/23] fluoxetine 20 mg capsule 20 mg PO DAILY mental health 12/28/22 [History Last Taken 08/04/23] gabapentin 300 mg capsule 300 mg PO BID nerve pain 12/28/22 [History Last Taken 08/05/23] lisinopril 10 mg tablet 10 mg PO DAILY blood pressure 12/28/22 [History Last Taken 08/05/23] ondansetron HCl 4 mg tablet 4 mg PO Q8H PRN nausea 12/28/22 [History Last Taken Unknown] rimegepant 75 mg disintegrating tablet (Nurtec ODT) 75 mg PO DAILY PRN migraine headache 02/04/24 [History Last Taken Unknown] sulfamethoxazole 800 mg-trimethoprim 160 mg tablet 1 tab PO BID #6 TABLETS 02/04/24 [Rx Last Taken Unknown] Allergy/AdvReac Type Severity Reaction Status Date / Time Corticosteroids Allergy Hives Verified 02/04/24 01:20 (Glucocorticoids) [steroids] lidocaine AdvReac Intermediate Hives Verified 02/04/24 01:20 Family History Father Diabetes Myocardial infarction Pancreatic cancer Mother Alcohol abuse Drug abuse Grandfather Diabetes Grandmother Lung cancer Grandmother Heart disease Triple bypass surgery Surgical History H/O: (~2005) History of urethral stent (~2018) Hx laparoscopic cholecystectomy (~2005) Social History Smoking Status: Never smoker alcohol intake: never substance use type: does not use caffeine: Yes Type: coffee what type of physical activity do you participate in: walking frequency: daily seatbelt use: always do you feel safe at home: Yes ROS ROS ED Constitutional Constitutional ED: Denies chills or fever(s) Eyes Eyes: Reports change in vision and other Details: No eye pain ; Denies diplopia ENT ENT ED: Reports ear pain left, nasal congestion, rhinorrhea and sore throat Cardiovascular Cardiovascular: Denies chest pain or palpitations Respiratory/Chest Respiratory/Chest: Reports dyspnea Gastrointestinal Gastrointestinal: Denies abdominal pain, diarrhea, nausea or vomiting Genitourinary Genitourinary ED: Denies dysuria or hematuria Musculoskeletal Musculoskeletal: Denies myalgias or neck pain Integumentary Denies abscess or rash Neurologic Neurologic: Reports as per HPI, behavior changes, headache(s) and vertigo; Denies paresthesias, seizures or weakness Psychiatric Psychiatric: Denies depression or suicidal thoughts Endocrine Endocrinology: Reports polydipsia and polyuria; Denies polyphagia EXAM Physical Exam Const Vital Signs: 02/04/24 01:12 02/04/24 01:14 Temperature 98.1 F Temperature Source Temporal Pulse Rate 65 Respiratory Rate 16 Respiratory Effort Normal Respiratory Pattern Normal Blood Pressure 142/75 H Blood Pressure Mean 97 Pulse Ox 99 Oxygen Delivery Method Room Air Positive well nourished, well developed and obese General Appearance ED: well developed and NAD Nutritional Appearance: obese HEENT Reports TM's clear and moist mucous membranes normocephalic and atraumatic Tympanic Membrane ED: Yes TM's clear Throat: Negative for posterior oropharynx abnormal Eyes PERRL and EOMs intact bilaterally Eyes Narrative: Normal visual field exam bilaterally. No pathologic nystagmus. Patient examined while not particularly vertiginous. Neck no lymphadenopathy, supple, no meningeal signs and no JVD Chest Wall inspection of chest normal and palpation of chest normal Resp normal respiratory effort and clear to auscultation bilaterally Cardio no murmurs Rate: regular rate; Negative for tachycardic Rhythm: regular rhythm GI non-tender and non-distended Auscultation: normoactive bowel sounds Palpation: soft Back/Spine no CVA tenderness General Back: other FROM Extremity normal to inspection General Extremety ED: Negative for edema, pulses abnormal or tenderness General Extremity: Negative for edema or pulses abnormal Neuro oriented x3, CN's II-XII intact bilaterally and no sensory deficits noted Neuro Narrative: Normal speech. No aphasia. Normal [id number] and [id number] bilaterally. No confusion. Sensorium / Orientation: alert Motor Exam: strength 5/5 throughout Psych mental status grossly normal Skin no rashes or lesions noted and no wounds Lesions: no lesions Rashes: no rashes MDM MDM MDM Narrative Medical decision making narrative: It is possible that she has an infection such as COVID, influenza, pneumonia, however her lungs are clear her pulse ox is 99% room air, she has no tachycardia and the rest of her vital signs are normal. It is also possible that there is a metabolic disturbance. I do not think this is a primary GROUP COUNSELOR problem. She describes visual disturbance being diffuse, and not focal and just 1 or other visual cardenas. It is also bilateral making it less likely to be a single globe/eye problem. While performing metabolic workup, chest x-ray 2 view, and COVID/influenza/RSV swab, she was agreeable to get a medication for her migraines and she was given Reglan. The chest x-ray 2 views my interpretation normal, negative for pneumonia, radiology in agreement, and her COVID/influenza/RSV swab is negative. On reevaluation her headache is feeling better, and her workup basically is consistent with a normal anion gap, blood sugar of 246, mild leukocytosis, and her urine shows infection, no glycosuria. There is 4+ bacteria along with some positive infection indicators. Therefore I think this is probably what is causing her urinary frequency. As far as the visual disturbance and the transient disorientation, I do not think this was anything dangerous, unknown if related to her urine infection, her migraine, some type of viral syndrome, or transient electrolyte/glucose level disturbance. I do not think she needs advanced emergent imaging of her head/brain. Vital signs are normal, started on Bactrim, send a urine culture, follow-up advised she is comfortable with that plan. Lab Data Attestation: I reviewed the patient's lab results. Labs: Laboratory Results - last 24 hr 02/04/24 02/04/24 02:10 02:15 WBC 11.3 H RBC 3.82 L Hgb 11.2 L Hct 34.2 L MCV 89.5 MCH 29.3 MCHC 32.7 RDW Std Deviation 43.2 RDW Coeff of [place]zel 13.2 Plt Count 203 MPV 9.2 Immature Gran % (Auto) 1.300 H Neut % (Auto) 71.0 H Lymph % (Auto) 19.8 [place] % (Auto) 6.6 Eos % (Auto) 0.9 Baso % (Auto) 0.4 Absolute Neuts (auto) 8.0 H Absolute Lymphs (auto) 2.24 Nucleated RBC % 0 Sodium 135 L Potassium 3.6 Chloride 106 Carbon Dioxide 21.0 Anion Gap 8 BUN 13 Creatinine 0.87 Estim Creat Clear Calc 116.68 Est GFR (MDRD) Af Amer 92 Est GFR (MDRD) Non-Af 76 BUN/Creatinine Ratio 15.0 Glucose 246 H Calcium 8.4 L Urine Color Yellow Urine Clarity Clear Urine pH 7.0 Ur Specific [place] 1.010 Urine Protein 15 H Urine Glucose (UA) Normal Urine Ketones Negative Urine Occult Blood 10 H Urine Nitrite Negative Urine Bilirubin Negative Urine Urobilinogen Normal Ur Leukocyte Esterase 100 H Urine RBC 0-5 SEEN Urine WBC 10-25 SEEN Ur Squamous Epith Cells 0-5 SEEN Urine Bacteria 4+ Urine Mucus 0 SEEN Radiography Diagnostic Testing: Clinical Impression(s) from Imaging Studies Chest X-Ray 02/04/24 02:02 IMPRESSION: No acute pulmonary finding. Electronically Signed: Juan Luis German MD at 3:17 EDT Reading Location ID and State: [address] [place] [address] Tel , Service support , Discharge Plan Triage Chief Complaint: Dizziness Other Complaint: Cold Sx Mental Health ED Provider: Sam Pearl Dx/Rx/DC Orders Clinical Impression: Acute cystitis without hematuria, URI (upper respiratory infection), Diabetes mellitus with hyperglycemia, Subjective visual disturbance, Migraine headache Instructions: ED Cystitis Female Adult Prescriptions: New sulfamethoxazole-trimethoprim [sulfamethoxazole-trimethoprim] 800-160 mg tablet 1 tab PO BID Qty: 6 0RF No Action (DME) blood sugar diagnostic [Blood Glucose Test] Strip See Rx Instructions .ROUTE .MEDSUPPLY Qty: 10 Rx Instructions: As directed ipratropium bromide 0.03 % spray,non-aerosol 2 spray INTRANASAL BID Rx Instructions: administer into each nostril omega-3 fatty acids [Fish Oil Concentrate] 1,000 mg capsule 1,000 mg PO DAILY Trulicity 0.75 mg/0.5 mL pen injector 0.75 mg subcut QWEEK Patient Comments: INJECT 1 PENaSUBCUTANEOUSLY ONCE PER WEEK fexofenadine [Allergy Relief (fexofenadine)] 180 mg tablet 180 mg PO DAILY levonorgestrel 17.5 mcg/24 hrs (5 yrs) 19.5 mg intrauterine device 1 device intrauterine ONCE Rx Instructions: as a single dose omeprazole 20 mg capsule,delayed release(DR/EC) 20 mg PO DAILY PRN (Reason: gerd) Patient Comments: Take 1 capsule by mouthndaily before breakfast. 1/2 hr before meal. topiramate 100 mg tablet 100 mg PO BID Patient Comments: Take 1 tablet by mouthitwice daily. gabapentin 300 mg capsule 300 mg PO BID Patient Comments: TAKE 1 CAP 3 TIMES DAILY.CIF AFTER 2 DAYS SYMPTOMS PERSIST, INCREASE TO 2 CAPS AT BEDTIME lisinopril 10 mg tablet 10 mg PO DAILY Patient Comments: Take 1 tablet by mouthEonce daily. ondansetron HCl 4 mg tablet 4 mg PO Q8H PRN (Reason: nausea) Patient Comments: TAKE 1 TABLET BY MOUTHEEVERY 8 HOURS NEEDED FOR NAUSEA OR VOMITING fluoxetine 20 mg capsule 20 mg PO DAILY Patient Comments: Take 1 capsule by mouthConce daily. albuterol sulfate 90 mcg/actuation HFA aerosol inhaler 2 puff INHALATION Q4H PRN (Reason: shortness of breath or wheezing) tizanidine 4 mg tablet 4 mg PO Q8H PRN (Reason: Muscle Spasm) Nurtec ODT 75 mg tablet,disintegrating 75 mg PO DAILY PRN (Reason: migraine headache) Primary Care Provider: Ivette Grimes Referrals: Ivette Grimes MD [Primary Care Provider] - Disposition Disposition: Home, Self Care What to do if you have Problems For any increased pain, shortness of breath, bleeding, nausea or vomiting, chestpain, or any unexpected problems, contact your Primary Care Provider. Call [facility] ([phone]) or report to the closest Emergency Room. Call 911 if necessary. 02/04/24 0349 <Electronically signed by Sam Pearl MD> Cosigner Signature (if applicable): CC: Dr. Ivette Grimes MD ~ Signed [facility] Work Phone: Evaluation note* Diagnosis Onset Date Resolution Status Segmental and somatic dysfunction of cervical region acute Segmental and somatic dysfunction of lumbar region acute Segmental and somatic dysfunction of pelvic region acute Segmental and somatic dysfunction of thoracic region acute Degeneration of intervertebr al disc of lumbosacral region chronic Segmental and somatic dysfunction of cervical region acute Segmental and somatic dysfunction of lumbar region acute Segmental and somatic dysfunction of pelvic region acute Segmental and somatic dysfunction of thoracic region acute Disc displacement, lumbar ch ronic Segmental and somatic dysfunction of cervical region acute Segmental and somatic dysfunction of lumbar region acute Segmental and somatic dysfunction of pelvic region acute Segmental and somatic dysfunction of thoracic region acute Disc displacement, lumbar ch ronic Segmental and somatic dysfunction of lumbar region acute Segmental and somatic dysfunction of pelvic region acute Segmental and somatic dysfunction of thoracic region acute Disc displacement, lumbar ch ronic Internal disruption of inter vertebral disc of lumbar spine acute Segmental and somatic dysfunction of pelvic region acute Segmental and somatic dysfunction of thoracic region acute Degeneration of intervertebr al disc of lumbosacral region chronic Disc displacement, lumbar ch ronic Segmental and somatic dysfunction of cervical region acute Segmental and somatic dysfunction of lumbar region acute Segmental and somatic dysfunction of pelvic region acute Segmental and somatic dysfunction of thoracic region acute Disc displacement, lumbar ch ronic Back pain acute Segmental and somatic dysfunction of cervical region acute Segmental and somatic dysfunction of lumbar region acute Segmental and somatic dysfunction of pelvic region acute Segmental and somatic dysfunction of thoracic region acute Disc displacement, lumbar ch ronic [facility] Work Phone: Evaluation note* Diagnosis Upper back pain- Primary Acute midline low back pain without sciatica Type 2 diabetes mellitus with microalbuminuria, with long-term current use of insulin ([facility]) LETITIA (obstructive sleep apnea) Obstructive sleep apnea (adult) (pediatric) Lumbar disc disorder Other and unspecified disc disorder of lumbar region Elevated BP without diagnosis of hypertension [facility] Diagnosis Myofascial pain- Primary Mylagia and myositis, unspecified Chronic left shoulder pain Pain in joint, shoulder region Neuropathic pain Neuralgia, neuritis, and radiculitis, unspecified Adhesive capsulitis of left shoulder Adhesive capsulitis of shoulder Primary osteoarthritis of left shoulder Primary localized osteoarthrosis, shoulder region [facility] Diagnosis Migraine without aura and without status migrainosus, not intractable Migraine without aura, without mention of intractable migraine without mention of status migrainosus [facility] Diagnosis Intractable migraine without aura and without status migrainosus- Primary Migraine without aura, with intractable migraine, so stated, without mention of status migrainosus Medication overuse headache Drug induced headache, not elsewhere classified LETITIA (obstructive sleep apnea) Obstructive sleep apnea (adult) (pediatric) Class 3 severe obesity with body mass index (BMI) of 45.0 to 49.9 in adult, unspecified obesity type, unspecified whether serious comorbidity present (HCC) [facility] Diagnosis Microalbuminuria- Primary Proteinuria Anxiety Anxiety state, unspecified Type 2 diabetes mellitus with microalbuminuria, with long-term current use of insulin (HCC) Fatty liver Other chronic nonalcoholic liver disease LETITIA (obstructive sleep apnea) Obstructive sleep apnea (adult) (pediatric) Lumbar herniated disc Displacement of lumbar intervertebral disc without myelopathy 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 Displacement of thoracic intervertebral disc without myelopathy Spinal stenosis of thoracolumbar region Spinal stenosis of thoracic region Pain of left upper extremity Rib pain Chest pain, unspecified [facility] Diagnosis SOB (shortness of breath) Shortness of [facility] Diagnosis Adhesive capsulitis of left shoulder- Primary Adhesive capsulitis of shoulder Primary osteoarthritis of left shoulder Primary localized osteoarthrosis, shoulder region [facility] Diagnosis Chronic left shoulder pain- Primary Pain in joint, shoulder region Adhesive capsulitis of left shoulder Adhesive capsulitis of shoulder Primary osteoarthritis of left shoulder Primary localized osteoarthrosis, shoulder region Myofascial pain Mylagia and myositis, unspecified [facility] Diagnosis Proteinuria, unspecified type- Primary Leukocytosis, unspecified type Intractable migraine without aura and without status migrainosus- Primary Migraine without aura, with intractable migraine, so stated, without mention of status migrainosus Medication overuse headache Drug induced headache, not elsewhere classified LETITIA (obstructive sleep apnea) Obstructive sleep apnea (adult) (pediatric) Class 3 severe obesity with body mass index (BMI) of 45.0 to 49.9 in adult, unspecified obesity type, unspecified whether serious comorbidity present (HCC) [facility] Diagnosis Intractable migraine without aura and without status migrainosus- Primary Migraine without aura, with intractable migraine, so stated, without mention of status migrainosus Medication overuse headache Drug induced headache, not elsewhere classified LETITIA (obstructive sleep apnea) Obstructive sleep apnea (adult) (pediatric) Class 3 severe obesity with body mass index (BMI) of 45.0 to 49.9 in adult, unspecified obesity type, unspecified whether serious comorbidity present (HCC) [facility] Diagnosis Intractable chronic migraine without aura and without status migrainosus- Primary Chronic migraine without aura, with intractable migraine, so stated, without mention of status migrainosus Mixed migraine and muscle contraction headache Migraine, unspecified, without mention of intractable migraine without mention of status migrainosus [facility] Diagnosis Onset Date Resolution Status Back pain acute Segmental and somatic dysfunction of cervical region acute Segmental and somatic dysfunction of lumbar region acute Segmental and somatic dysfunction of pelvic region acute Segmental and somatic dysfunction of thoracic region acute Disc displacement, lumbar ch ronic Back pain acute Segmental and somatic dysfunction of cervical region acute Segmental and somatic dysfunction of lumbar region acute Segmental and somatic dysfunction of pelvic region acute Segmental and somatic dysfunction of thoracic region acute Disc displacement, lumbar ch ronic Back pain acute Segmental and somatic dysfunction of cervical region acute Segmental and somatic dysfunction of lumbar region acute Segmental and somatic dysfunction of pelvic region acute Segmental and somatic dysfunction of thoracic region acute Disc displacement, lumbar ch ronic Back pain acute Segmental and somatic dysfunction of cervical region acute Segmental and somatic dysfunction of lumbar region acute Segmental and somatic dysfunction of pelvic region acute Segmental and somatic dysfunction of thoracic region acute Disc displacement, lumbar ch ronic Back pain acute Segmental and somatic dysfunction of cervical region acute Segmental and somatic dysfunction of lumbar region acute Segmental and somatic dysfunction of pelvic region acute Segmental and somatic dysfunction of thoracic region acute Disc displacement, lumbar ch ronic Back pain acute Segmental and somatic dysfunction of cervical region acute Segmental and somatic dysfunction of lumbar region acute Segmental and somatic dysfunction of pelvic region acute Segmental and somatic dysfunction of thoracic region acute Disc displacement, lumbar ch ronic Back pain acute Segmental and somatic dysfunction of cervical region acute Segmental and somatic dysfunction of lumbar region acute Segmental and somatic dysfunction of pelvic region acute Segmental and somatic dysfunction of thoracic region acute Disc displacement, lumbar ch ronic Back pain acute Segmental and somatic dysfunction of cervical region acute Segmental and somatic dysfunction of lumbar region acute Segmental and somatic dysfunction of pelvic region acute Segmental and somatic dysfunction of thoracic region acute Disc displacement, lumbar ch ronic Back pain acute Segmental and somatic dysfunction of cervical region acute Segmental and somatic dysfunction of lumbar region acute Segmental and somatic dysfunction of pelvic region acute Segmental and somatic dysfunction of thoracic region acute Disc displacement, lumbar ch ronic [facility] Work Phone: Evaluation note* Diagnosis Type 2 diabetes mellitus with microalbuminuria, with long-term current use of insulin (HCC)- Primary Fatty liver Other chronic nonalcoholic liver disease LETITIA (obstructive sleep apnea) Obstructive sleep apnea (adult) (pediatric) Microalbuminuria Proteinuria Lumbar disc disorder Other and unspecified disc disorder of lumbar region Prolonged Q-T interval on ECG Nonspecific abnormal electrocardiogram (ECG) (EKG) Fatigue, unspecified [facility] Onset Date Resolution Status Segmental and somatic dysfunction of lumbar region acute Back pain chronic Disc displacement, lumbar ch ronic Segmental and somatic dysfunction of cervical region chronic Segmental and somatic dysfunction of pelvic region chronic Segmental and somatic dysfunction of thoracic region chronic Segmental and somatic dysfunction of lumbar region acute Back pain chronic Disc displacement, lumbar ch ronic Segmental and somatic dysfunction of cervical region chronic Segmental and somatic dysfunction of pelvic region chronic Segmental and somatic dysfunction of thoracic region chronic Segmental and somatic dysfunction of lumbar region acute Back pain chronic Disc displacement, lumbar ch ronic Segmental and somatic dysfunction of cervical region chronic Segmental and somatic dysfunction of pelvic region chronic Segmental and somatic dysfunction of thoracic region chronic Segmental and somatic dysfunction of lumbar region acute Back pain chronic Disc displacement, lumbar ch ronic Segmental and somatic dysfunction of cervical region chronic Segmental and somatic dysfunction of pelvic region chronic Segmental and somatic dysfunction of thoracic region chronic Segmental and somatic dysfunction of lumbar region acute Back pain chronic Disc displacement, lumbar ch ronic Segmental and somatic dysfunction of cervical region chronic Segmental and somatic dysfunction of pelvic region chronic Segmental and somatic dysfunction of thoracic region chronic Segmental and somatic dysfunction of lumbar region acute Back pain chronic Disc displacement, lumbar ch ronic Segmental and somatic dysfunction of cervical region chronic Segmental and somatic dysfunction of pelvic region chronic Segmental and somatic dysfunction of thoracic region chronic Segmental and somatic dysfunction of lumbar region acute Back pain chronic Disc displacement, lumbar ch ronic Segmental and somatic dysfunction of cervical region chronic Segmental and somatic dysfunction of pelvic region chronic Segmental and somatic dysfunction of thoracic region chronic Segmental and somatic dysfunction of lumbar region acute Back pain chronic Disc displacement, lumbar ch ronic Segmental and somatic dysfunction of cervical region chronic Segmental and somatic dysfunction of pelvic region chronic Segmental and somatic dysfunction of thoracic region chronic Segmental and somatic dysfunction of lumbar region acute Back pain chronic Disc displacement, lumbar ch ronic Segmental and somatic dysfunction of cervical region chronic Segmental and somatic dysfunction of pelvic region chronic Segmental and somatic dysfunction of thoracic region chronic Obesity [facility] Work Phone: Evaluation note* Diagnosis Onset Date Resolution Status Segmental and somatic dysfunction of lumbar region acute Back pain chronic Disc displacement, lumbar ch ronic Segmental and somatic dysfunction of cervical region chronic Segmental and somatic dysfunction of pelvic region chronic Segmental and somatic dysfunction of thoracic region chronic Segmental and somatic dysfunction of lumbar region acute Back pain chronic Disc displacement, lumbar ch ronic Segmental and somatic dysfunction of cervical region chronic Segmental and somatic dysfunction of pelvic region chronic Segmental and somatic dysfunction of thoracic region chronic Segmental and somatic dysfunction of lumbar region acute Back pain chronic Disc displacement, lumbar ch ronic Segmental and somatic dysfunction of cervical region chronic Segmental and somatic dysfunction of pelvic region chronic Segmental and somatic dysfunction of thoracic region chronic Segmental and somatic dysfunction of lumbar region acute Back pain chronic Disc displacement, lumbar ch ronic Segmental and somatic dysfunction of cervical region chronic Segmental and somatic dysfunction of pelvic region chronic Segmental and somatic dysfunction of thoracic region chronic Segmental and somatic dysfunction of lumbar region acute Back pain chronic Disc displacement, lumbar ch ronic Segmental and somatic dysfunction of cervical region chronic Segmental and somatic dysfunction of pelvic region chronic Segmental and somatic dysfunction of thoracic region chronic Segmental and somatic dysfunction of lumbar region acute Back pain chronic Disc displacement, lumbar ch ronic Segmental and somatic dysfunction of cervical region chronic Segmental and somatic dysfunction of pelvic region chronic Segmental and somatic dysfunction of thoracic region chronic Segmental and somatic dysfunction of lumbar region acute Back pain chronic Disc displacement, lumbar ch ronic Segmental and somatic dysfunction of cervical region chronic Segmental and somatic dysfunction of pelvic region chronic Segmental and somatic dysfunction of thoracic region chronic Segmental and somatic dysfunction of lumbar region acute Back pain chronic Disc displacement, lumbar ch ronic Segmental and somatic dysfunction of cervical region chronic Segmental and somatic dysfunction of pelvic region chronic Segmental and somatic dysfunction of thoracic region chronic Obesity chronic Abnormal ECG acute Hypertension chronic Obesity chronic Type 2 diabetes mellitus [facility] Work Phone: Evaluation note* Diagnosis Malaise- Primary Other malaise and fatigue [facility] Diagnosis Onset Date Resolution Status Back pain acute Segmental and somatic dysfunction of cervical region acute Segmental and somatic dysfunction of lumbar region acute Segmental and somatic dysfunction of pelvic region acute Segmental and somatic dysfunction of thoracic region acute Disc displacement, lumbar ch ronic Back pain acute Segmental and somatic dysfunction of cervical region acute Segmental and somatic dysfunction of lumbar region acute Segmental and somatic dysfunction of pelvic region acute Segmental and somatic dysfunction of thoracic region acute Disc displacement, lumbar ch ronic Back pain acute Segmental and somatic dysfunction of cervical region acute Segmental and somatic dysfunction of lumbar region acute Segmental and somatic dysfunction of pelvic region acute Segmental and somatic dysfunction of thoracic region acute Disc displacement, lumbar ch ronic Back pain acute Segmental and somatic dysfunction of cervical region acute Segmental and somatic dysfunction of lumbar region acute Segmental and somatic dysfunction of pelvic region acute Segmental and somatic dysfunction of thoracic region acute Disc displacement, lumbar ch ronic Back pain acute Segmental and somatic dysfunction of cervical region acute Segmental and somatic dysfunction of lumbar region acute Segmental and somatic dysfunction of pelvic region acute Segmental and somatic dysfunction of thoracic region acute Disc displacement, lumbar ch ronic Back pain acute Segmental and somatic dysfunction of cervical region acute Segmental and somatic dysfunction of lumbar region acute Segmental and somatic dysfunction of pelvic region acute Segmental and somatic dysfunction of thoracic region acute Disc displacement, lumbar ch ronic Back pain acute Segmental and somatic dysfunction of cervical region acute Segmental and somatic dysfunction of lumbar region acute Segmental and somatic dysfunction of pelvic region acute Segmental and somatic dysfunction of thoracic region acute Disc displacement, lumbar ch ronic Obesity chronic Abnormal ECG acute Hypertension chronic Obesity chronic Type 2 diabetes mellitus chr onic Back pain acute Segmental and somatic dysfunction of cervical region acute Segmental and somatic dysfunction of lumbar region acute Segmental and somatic dysfunction of pelvic region acute Segmental and somatic dysfunction of thoracic region acute Disc displacement, lumbar ch ronic [facility] Work Phone: Evaluation note* Diagnosis Lightheadedness- Primary Dizziness and giddiness Essential (primary) hypertension Unspecified essential hypertension Prolonged Q-T interval on ECG Nonspecific abnormal electrocardiogram (ECG) (EKG) Type 2 diabetes mellitus with microalbuminuria, with long-term current use of insulin (HCC) Fatty liver Other chronic nonalcoholic liver disease LETITIA (obstructive sleep apnea) Obstructive sleep apnea (adult) (pediatric) [facility] Anxiety with depression- Primary [facility] Diagnosis Onset Date Resolution Status Back pain acute Segmental and somatic dysfunction of cervical region acute Segmental and somatic dysfunction of lumbar region acute Segmental and somatic dysfunction of pelvic region acute Segmental and somatic dysfunction of thoracic region acute Disc displacement, lumbar ch ronic Back pain acute Segmental and somatic dysfunction of cervical region acute Segmental and somatic dysfunction of lumbar region acute Segmental and somatic dysfunction of pelvic region acute Segmental and somatic dysfunction of thoracic region acute Disc displacement, lumbar ch ronic Back pain acute Segmental and somatic dysfunction of cervical region acute Segmental and somatic dysfunction of lumbar region acute Segmental and somatic dysfunction of pelvic region acute Segmental and somatic dysfunction of thoracic region acute Disc displacement, lumbar ch ronic Back pain acute Segmental and somatic dysfunction of cervical region acute Segmental and somatic dysfunction of lumbar region acute Segmental and somatic dysfunction of pelvic region acute Segmental and somatic dysfunction of thoracic region acute Disc displacement, lumbar ch ronic Back pain acute Segmental and somatic dysfunction of cervical region acute Segmental and somatic dysfunction of lumbar region acute Segmental and somatic dysfunction of pelvic region acute Segmental and somatic dysfunction of thoracic region acute Disc displacement, lumbar ch ronic Back pain acute Segmental and somatic dysfunction of cervical region acute Segmental and somatic dysfunction of lumbar region acute Segmental and somatic dysfunction of pelvic region acute Segmental and somatic dysfunction of thoracic region acute Disc displacement, lumbar ch ronic Obesity chronic Abnormal ECG acute Hypertension chronic Obesity chronic Type 2 diabetes mellitus chr onic Back pain acute Segmental and somatic dysfunction of cervical region acute Segmental and somatic dysfunction of lumbar region acute Segmental and somatic dysfunction of pelvic region acute Segmental and somatic dysfunction of thoracic region acute Disc displacement, lumbar ch ronic Back pain acute Segmental and somatic dysfunction of cervical region acute Segmental and somatic dysfunction of lumbar region acute Segmental and somatic dysfunction of pelvic region acute Segmental and somatic dysfunction of thoracic region acute Disc displacement, lumbar ch ronic [facility] Work Phone: Evaluation note* Diagnosis Onset Date Resolution Status Back pain acute Segmental and somatic dysfunction of cervical region acute Segmental and somatic dysfunction of lumbar region acute Segmental and somatic dysfunction of pelvic region acute Segmental and somatic dysfunction of thoracic region acute Disc displacement, lumbar ch ronic Back pain acute Segmental and somatic dysfunction of cervical region acute Segmental and somatic dysfunction of lumbar region acute Segmental and somatic dysfunction of pelvic region acute Segmental and somatic dysfunction of thoracic region acute Disc displacement, lumbar ch ronic Back pain acute Segmental and somatic dysfunction of cervical region acute Segmental and somatic dysfunction of lumbar region acute Segmental and somatic dysfunction of pelvic region acute Segmental and somatic dysfunction of thoracic region acute Disc displacement, lumbar ch ronic Back pain acute Segmental and somatic dysfunction of cervical region acute Segmental and somatic dysfunction of lumbar region acute Segmental and somatic dysfunction of pelvic region acute Segmental and somatic dysfunction of thoracic region acute Disc displacement, lumbar ch ronic Obesity chronic Abnormal ECG acute Hypertension chronic Obesity chronic Type 2 diabetes mellitus chr onic Back pain acute Segmental and somatic dysfunction of cervical region acute Segmental and somatic dysfunction of lumbar region acute Segmental and somatic dysfunction of pelvic region acute Segmental and somatic dysfunction of thoracic region acute Disc displacement, lumbar ch ronic Back pain acute Segmental and somatic dysfunction of cervical region acute Segmental and somatic dysfunction of lumbar region acute Segmental and somatic dysfunction of pelvic region acute Segmental and somatic dysfunction of thoracic region acute Disc displacement, lumbar ch ronic Back pain acute Segmental and somatic dysfunction of cervical region acute Segmental and somatic dysfunction of lumbar region acute Segmental and somatic dysfunction of pelvic region acute Segmental and somatic dysfunction of thoracic region acute Disc displacement, lumbar ch ronic Back pain acute Segmental and somatic dysfunction of cervical region acute Segmental and somatic dysfunction of lumbar region acute Segmental and somatic dysfunction of pelvic region acute Segmental and somatic dysfunction of thoracic region acute Disc displacement, lumbar ch ronic [facility] Work Phone: Evaluation note* Diagnosis VAHE (generalized anxiety disorder)- Primary Generalized anxiety disorder Major depressive disorder, recurrent episode, moderate (HCC) Major depressive disorder, recurrent episode, moderate [facility] Chronic left shoulder pain- Primary Pain in joint, shoulder region Adhesive capsulitis of left shoulder Adhesive capsulitis of shoulder Neuropathic pain Neuralgia, neuritis, and radiculitis, unspecified Myofascial pain Mylagia and myositis, unspecified [facility] Chronic left shoulder pain- Primary Pain in joint, shoulder region Adhesive capsulitis of left shoulder Adhesive capsulitis of shoulder Chronic left shoulder pain Pain in joint, shoulder region Adhesive capsulitis of left shoulder Adhesive capsulitis of shoulder [facility] Diagnosis Microalbuminuria Proteinuria Type 2 diabetes mellitus without complication, with long-term current use of insulin (HCC) Lumbar herniated disc Displacement of lumbar intervertebral disc without myelopathy 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 Displacement of thoracic intervertebral disc without myelopathy Spinal stenosis of thoracolumbar region Spinal stenosis of thoracic region Pain of left upper extremity Chronic left shoulder pain Pain in joint, shoulder region Adhesive capsulitis of left shoulder Adhesive capsulitis of shoulder [facility] Diagnosis Onset Date Resolution Status Back pain acute Segmental and somatic dysfunction of cervical region acute Segmental and somatic dysfunction of lumbar region acute Segmental and somatic dysfunction of pelvic region acute Segmental and somatic dysfunction of thoracic region acute Disc displacement, lumbar ch ronic Obesity chronic Abnormal ECG acute Hypertension chronic Obesity chronic Type 2 diabetes mellitus chr onic Back pain acute Segmental and somatic dysfunction of cervical region acute Segmental and somatic dysfunction of lumbar region acute Segmental and somatic dysfunction of pelvic region acute Segmental and somatic dysfunction of thoracic region acute Disc displacement, lumbar ch ronic Back pain acute Segmental and somatic dysfunction of cervical region acute Segmental and somatic dysfunction of lumbar region acute Segmental and somatic dysfunction of pelvic region acute Segmental and somatic dysfunction of thoracic region acute Disc displacement, lumbar ch ronic Back pain acute Segmental and somatic dysfunction of cervical region acute Segmental and somatic dysfunction of lumbar region acute Segmental and somatic dysfunction of pelvic region acute Segmental and somatic dysfunction of thoracic region acute Disc displacement, lumbar ch ronic Back pain acute Segmental and somatic dysfunction of cervical region acute Segmental and somatic dysfunction of lumbar region acute Segmental and somatic dysfunction of pelvic region acute Segmental and somatic dysfunction of thoracic region acute Disc displacement, lumbar ch ronic Back pain acute Segmental and somatic dysfunction of cervical region acute Segmental and somatic dysfunction of lumbar region acute Segmental and somatic dysfunction of pelvic region acute Segmental and somatic dysfunction of thoracic region acute Disc displacement, lumbar ch ronic Back pain acute Segmental and somatic dysfunction of cervical region acute Segmental and somatic dysfunction of lumbar region acute Segmental and somatic dysfunction of pelvic region acute Segmental and somatic dysfunction of thoracic region acute Disc displacement, lumbar ch ronic Back pain acute Segmental and somatic dysfunction of cervical region acute Segmental and somatic dysfunction of lumbar region acute Segmental and somatic dysfunction of pelvic region acute Segmental and somatic dysfunction of thoracic region acute Disc displacement, lumbar ch ronic [facility] Work Phone: Evaluation note* Diagnosis Onset Date Resolution Status Back pain acute Segmental and somatic dysfunction of cervical region acute Segmental and somatic dysfunction of lumbar region acute Segmental and somatic dysfunction of pelvic region acute Segmental and somatic dysfunction of thoracic region acute Disc displacement, lumbar ch ronic Obesity chronic Abnormal ECG acute Hypertension chronic Obesity chronic Type 2 diabetes mellitus chr onic Back pain acute Segmental and somatic dysfunction of cervical region acute Segmental and somatic dysfunction of lumbar region acute Segmental and somatic dysfunction of pelvic region acute Segmental and somatic dysfunction of thoracic region acute Disc displacement, lumbar ch ronic Back pain acute Segmental and somatic dysfunction of cervical region acute Segmental and somatic dysfunction of lumbar region acute Segmental and somatic dysfunction of pelvic region acute Segmental and somatic dysfunction of thoracic region acute Disc displacement, lumbar ch ronic Back pain acute Segmental and somatic dysfunction of cervical region acute Segmental and somatic dysfunction of lumbar region acute Segmental and somatic dysfunction of pelvic region acute Segmental and somatic dysfunction of thoracic region acute Disc displacement, lumbar ch ronic Back pain acute Segmental and somatic dysfunction of cervical region acute Segmental and somatic dysfunction of lumbar region acute Segmental and somatic dysfunction of pelvic region acute Segmental and somatic dysfunction of thoracic region acute Disc displacement, lumbar ch ronic Back pain acute Segmental and somatic dysfunction of cervical region acute Segmental and somatic dysfunction of lumbar region acute Segmental and somatic dysfunction of pelvic region acute Segmental and somatic dysfunction of thoracic region acute Disc displacement, lumbar ch ronic Back pain acute Segmental and somatic dysfunction of cervical region acute Segmental and somatic dysfunction of lumbar region acute Segmental and somatic dysfunction of pelvic region acute Segmental and somatic dysfunction of thoracic region acute Disc displacement, lumbar ch ronic Back pain acute Segmental and somatic dysfunction of cervical region acute Segmental and somatic dysfunction of lumbar region acute Segmental and somatic dysfunction of pelvic region acute Segmental and somatic dysfunction of thoracic region acute Disc displacement, lumbar ch ronic Acute cervical myofascial strain acute Back pain acute Segmental and somatic dysfunction of cervical region acute Segmental and somatic dysfunction of lumbar region acute Segmental and somatic dysfunction of pelvic region acute Segmental and somatic dysfunction of thoracic region acute Disc displacement, lumbar ch ronic [facility] Work Phone: Evaluation note* Diagnosis Worst headache of life- Primary Headache Concussion with loss of consciousness, initial encounter Chronic left shoulder pain Pain in joint, shoulder region Adhesive capsulitis of left shoulder Adhesive capsulitis of shoulder [facility]* Diagnosis Headache, unspecified headache type- Primary Concussion with loss of consciousness, initial encounter Chronic left shoulder pain Pain in joint, shoulder region Adhesive capsulitis of left shoulder Adhesive capsulitis of shoulder [facility]* Diagnosis Post concussion syndrome- Primary Postconcussion syndrome Intractable acute post-traumatic headache Acute post-traumatic headache Dizziness Dizziness and giddiness Cervicalgia History of migraine Personal history of other disorders of nervous system and sense organs LETITIA (obstructive sleep apnea) Obstructive sleep apnea (adult) (pediatric) Chronic left shoulder pain Pain in joint, shoulder region Adhesive capsulitis of left shoulder Adhesive capsulitis of shoulder [facility]* Diagnosis Headache, unspecified headache type- Primary Concussion with loss of consciousness, initial encounter Chronic left shoulder pain Pain in joint, shoulder region Adhesive capsulitis of left shoulder Adhesive capsulitis of shoulder documented [facility]* Diagnosis Post concussion syndrome- Primary Postconcussion syndrome Essential (primary) hypertension Unspecified essential hypertension Microalbuminuria Proteinuria Type 2 diabetes mellitus without complication, with long-term current use of insulin (HCC) Chronic left shoulder pain Pain in joint, shoulder region Adhesive capsulitis of left shoulder Adhesive capsulitis of shoulder [facility] Post concussion syndrome- Primary Postconcussion syndrome Essential (primary) hypertension Unspecified essential hypertension Chronic left shoulder pain Pain in joint, shoulder region Adhesive capsulitis of left shoulder Adhesive capsulitis of shoulder [facility] Diagnosis Post concussive syndrome- Primary Postconcussion syndrome Headache, unspecified headache type [facility] Diagnosis Post concussive syndrome- Primary Postconcussion syndrome Headache, unspecified headache type Injury of neck, subsequent encounter [facility] [facility] Diagnosis Onset Date Resolution Status Back pain acute Segmental and somatic dysfunction of cervical region acute Segmental and somatic dysfunction of lumbar region acute Segmental and somatic dysfunction of pelvic region acute Disc displacement, lumbar ch ronic Back pain acute Segmental and somatic dysfunction of cervical region acute Segmental and somatic dysfunction of lumbar region acute Segmental and somatic dysfunction of pelvic region acute Disc displacement, lumbar ch ronic Back pain acute Segmental and somatic dysfunction of cervical region acute Segmental and somatic dysfunction of lumbar region acute Segmental and somatic dysfunction of pelvic region acute Disc displacement, lumbar ch ronic Back pain acute Segmental and somatic dysfunction of cervical region acute Segmental and somatic dysfunction of lumbar region acute Segmental and somatic dysfunction of pelvic region acute Disc displacement, lumbar ch ronic Back pain acute Segmental and somatic dysfunction of cervical region acute Segmental and somatic dysfunction of lumbar region acute Segmental and somatic dysfunction of pelvic region acute Disc displacement, lumbar ch ronic Back pain acute Segmental and somatic dysfunction of cervical region acute Segmental and somatic dysfunction of lumbar region acute Segmental and somatic dysfunction of pelvic region acute Disc displacement, lumbar ch ronic Back pain acute Segmental and somatic dysfunction of cervical region acute Segmental and somatic dysfunction of lumbar region acute Segmental and somatic dysfunction of pelvic region acute Disc displacement, lumbar ch ronic LETITIA (obstructive sleep apnea) chronic Back pain acute Segmental and somatic dysfunction of cervical region acute Segmental and somatic dysfunction of lumbar region acute Segmental and somatic dysfunction of pelvic region acute Disc displacement, lumbar ch ronic Abnormal ECG acute Hypertension chronic Back pain acute Segmental and somatic dysfunction of cervical region acute Segmental and somatic dysfunction of lumbar region acute Segmental and somatic dysfunction of pelvic region acute Disc displacement, lumbar ch ronic Back pain acute Segmental and somatic dysfunction of cervical region acute Segmental and somatic dysfunction of lumbar region acute Segmental and somatic dysfunction of pelvic region acute Disc displacement, lumbar ch ronic [facility] Work Phone: Evaluation note* Diagnosis Intractable chronic migraine without aura and without status migrainosus- Primary Chronic migraine without aura, with intractable migraine, so stated, without mention of status migrainosus [facility] Chronic left shoulder pain- Primary Pain in joint, shoulder region Adhesive capsulitis of left shoulder Adhesive capsulitis of shoulder Neuropathic pain Neuralgia, neuritis, and radiculitis, unspecified Primary osteoarthritis of left shoulder Primary localized osteoarthrosis, shoulder region Myofascial pain Mylagia and myositis, unspecified Lumbar spondylosis Lumbosacral spondylosis without myelopathy [facility] Diagnosis Post concussive syndrome- Primary Postconcussion syndrome Headache, unspecified headache type Injury of neck, subsequent encounter [facility] Diagnosis Soft tissue mass- Primary Disorders of soft tissue, unspecified [facility] Diagnosis VAHE (generalized anxiety disorder)- Primary Generalized anxiety disorder Recurrent major depressive disorder, in full remission (HCC) [facility] Diagnosis Onset Date Resolution Status Back pain acute Segmental and somatic dysfunction of cervical region acute Segmental and somatic dysfunction of lumbar region acute Segmental and somatic dysfunction of pelvic region acute Disc displacement, lumbar ch ronic Back pain acute Segmental and somatic dysfunction of cervical region acute Segmental and somatic dysfunction of lumbar region acute Segmental and somatic dysfunction of pelvic region acute Disc displacement, lumbar ch ronic Back pain acute Segmental and somatic dysfunction of cervical region acute Segmental and somatic dysfunction of lumbar region acute Segmental and somatic dysfunction of pelvic region acute Disc displacement, lumbar ch ronic Back pain acute Segmental and somatic dysfunction of cervical region acute Segmental and somatic dysfunction of lumbar region acute Segmental and somatic dysfunction of pelvic region acute Disc displacement, lumbar ch ronic Back pain acute Segmental and somatic dysfunction of cervical region acute Segmental and somatic dysfunction of lumbar region acute Segmental and somatic dysfunction of pelvic region acute Disc displacement, lumbar ch ronic LETITIA (obstructive sleep apnea) chronic Back pain acute Segmental and somatic dysfunction of cervical region acute Segmental and somatic dysfunction of lumbar region acute Segmental and somatic dysfunction of pelvic region acute Disc displacement, lumbar ch ronic Abnormal ECG acute Hypertension chronic Back pain acute Segmental and somatic dysfunction of cervical region acute Segmental and somatic dysfunction of lumbar region acute Segmental and somatic dysfunction of pelvic region acute Disc displacement, lumbar ch ronic Back pain acute Segmental and somatic dysfunction of cervical region acute Segmental and somatic dysfunction of lumbar region acute Segmental and somatic dysfunction of pelvic region acute Disc displacement, lumbar ch ronic Back pain acute Segmental and somatic dysfunction of cervical region acute Segmental and somatic dysfunction of lumbar region acute Segmental and somatic dysfunction of pelvic region acute Disc displacement, lumbar ch ronic Back pain acute Segmental and somatic dysfunction of cervical region acute Segmental and somatic dysfunction of lumbar region acute Segmental and somatic dysfunction of pelvic region acute Disc displacement, lumbar ch ronic [facility] Work Phone: Evaluation note* Diagnosis Anxiety- Primary Anxiety state, unspecified [facility] Soft tissue mass- Primary Disorders of soft tissue, unspecified Post concussive syndrome Postconcussion syndrome Essential (primary) hypertension Unspecified essential hypertension Type 2 diabetes mellitus with microalbuminuria, with long-term current use of insulin (HCC) Headache, unspecified headache type Myalgia Mylagia and myositis, unspecified [facility] Post concussion syndrome- Primary Postconcussion syndrome LETITIA (obstructive sleep apnea) Obstructive sleep apnea (adult) (pediatric) [facility] Encounter for gynecological examination (general) (routine) without abnormal findings- Primary [facility] Diagnosis Post concussion syndrome- Primary Postconcussion syndrome LETITIA (obstructive sleep apnea) Obstructive sleep apnea (adult) (pediatric) Intractable acute post-traumatic headache Acute post-traumatic headache Altered awareness, transient Transient alteration of awareness [facility] Diagnosis Onset Date Resolution Status Back pain acute Segmental and somatic dysfunction of cervical region acute Segmental and somatic dysfunction of lumbar region acute Segmental and somatic dysfunction of pelvic region acute Disc displacement, lumbar ch ronic Back pain acute Segmental and somatic dysfunction of cervical region acute Segmental and somatic dysfunction of lumbar region acute Segmental and somatic dysfunction of pelvic region acute Disc displacement, lumbar ch ronic Back pain acute Segmental and somatic dysfunction of cervical region acute Segmental and somatic dysfunction of lumbar region acute Segmental and somatic dysfunction of pelvic region acute Disc displacement, lumbar ch ronic Back pain acute Segmental and somatic dysfunction of cervical region acute Segmental and somatic dysfunction of lumbar region acute Segmental and somatic dysfunction of pelvic region acute Disc displacement, lumbar ch ronic LETITIA (obstructive sleep apnea) chronic Back pain acute Segmental and somatic dysfunction of cervical region acute Segmental and somatic dysfunction of lumbar region acute Segmental and somatic dysfunction of pelvic region acute Disc displacement, lumbar ch ronic Abnormal ECG acute Hypertension chronic Back pain acute Segmental and somatic dysfunction of cervical region acute Segmental and somatic dysfunction of lumbar region acute Segmental and somatic dysfunction of pelvic region acute Disc displacement, lumbar ch ronic Back pain acute Segmental and somatic dysfunction of cervical region acute Segmental and somatic dysfunction of lumbar region acute Segmental and somatic dysfunction of pelvic region acute Disc displacement, lumbar ch ronic Back pain acute Segmental and somatic dysfunction of cervical region acute Segmental and somatic dysfunction of lumbar region acute Segmental and somatic dysfunction of pelvic region acute Disc displacement, lumbar ch ronic Back pain acute Segmental and somatic dysfunction of cervical region acute Segmental and somatic dysfunction of lumbar region acute Segmental and somatic dysfunction of pelvic region acute Disc displacement, lumbar ch ronic Back pain acute Segmental and somatic dysfunction of cervical region acute Segmental and somatic dysfunction of lumbar region acute Segmental and somatic dysfunction of pelvic region acute Disc displacement, lumbar ch ronic [facility] Work Phone: Evaluation note* Diagnosis Intractable chronic migraine without aura and without status migrainosus- Primary Chronic migraine without aura, with intractable migraine, so stated, without mention of status migrainosus Post concussive syndrome Postconcussion syndrome [facility] Diagnosis Onset Date Resolution Status Back pain acute Segmental and somatic dysfunction of cervical region acute Segmental and somatic dysfunction of lumbar region acute Segmental and somatic dysfunction of pelvic region acute Disc displacement, lumbar ch ronic Back pain acute Segmental and somatic dysfunction of cervical region acute Segmental and somatic dysfunction of lumbar region acute Segmental and somatic dysfunction of pelvic region acute Disc displacement, lumbar ch ronic Back pain acute Segmental and somatic dysfunction of cervical region acute Segmental and somatic dysfunction of lumbar region acute Segmental and somatic dysfunction of pelvic region acute Disc displacement, lumbar ch ronic Back pain acute Segmental and somatic dysfunction of cervical region acute Segmental and somatic dysfunction of lumbar region acute Segmental and somatic dysfunction of pelvic region acute Disc displacement, lumbar ch ronic Back pain acute Segmental and somatic dysfunction of cervical region acute Segmental and somatic dysfunction of lumbar region acute Segmental and somatic dysfunction of pelvic region acute Segmental and somatic dysfunction of thoracic region acute Disc displacement, lumbar ch ronic Back pain acute Segmental and somatic dysfunction of cervical region acute Segmental and somatic dysfunction of lumbar region acute Segmental and somatic dysfunction of pelvic region acute Segmental and somatic dysfunction of thoracic region acute Disc displacement, lumbar ch ronic Back pain acute Segmental and somatic dysfunction of cervical region acute Segmental and somatic dysfunction of lumbar region acute Segmental and somatic dysfunction of pelvic region acute Segmental and somatic dysfunction of thoracic region acute Disc displacement, lumbar ch ronic [facility] Work Phone: Evaluation note* Diagnosis Foot pain, right- Primary Pain in limb [facility] Diagnosis Type 2 diabetes mellitus with microalbuminuria, with long-term current use of insulin (HCC)- Primary Chronic left shoulder pain Pain in joint, shoulder region Herniation of lumbar intervertebral disc with 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, lumbar region Essential (primary) hypertension Unspecified essential hypertension Nonalcoholic fatty liver Intractable chronic migraine without aura and without status migrainosus Chronic migraine without aura, with intractable migraine, so stated, without mention of status migrainosus LETITIA (obstructive sleep apnea) Obstructive sleep apnea (adult) (pediatric) Encounter for screening mammogram for malignant neoplasm of breast Other screening mammogram Headache, unspecified headache type [facility] Memory loss- Primary Attention and concentration deficit Attention or concentration deficit Post concussion syndrome Postconcussion syndrome Intractable migraine without aura and without status migrainosus Migraine without aura, with intractable migraine, so stated, without mention of status migrainosus LETITIA (obstructive sleep apnea) Obstructive sleep apnea (adult) (pediatric) [facility] Diagnosis Plantar fasciitis- Primary Plantar fascial fibromatosis Calcaneal spur of right foot Calcaneal spur [facility] Diagnosis SOB (shortness of breath) Shortness of breath [facility] Diagnosis SOB (shortness of breath) Shortness of breath [facility] Diagnosis Onset Date Resolution Status Back pain acute Segmental and somatic dysfunction of cervical region acute Segmental and somatic dysfunction of lumbar region acute Segmental and somatic dysfunction of pelvic region acute Segmental and somatic dysfunction of thoracic region acute Disc displacement, lumbar ch ronic Back pain acute Segmental and somatic dysfunction of cervical region acute Segmental and somatic dysfunction of lumbar region acute Segmental and somatic dysfunction of pelvic region acute Segmental and somatic dysfunction of thoracic region acute Disc displacement, lumbar ch ronic Back pain acute Segmental and somatic dysfunction of cervical region acute Segmental and somatic dysfunction of lumbar region acute Segmental and somatic dysfunction of pelvic region acute Segmental and somatic dysfunction of thoracic region acute Disc displacement, lumbar ch ronic Back pain acute Segmental and somatic dysfunction of cervical region acute Segmental and somatic dysfunction of lumbar region acute Segmental and somatic dysfunction of pelvic region acute Segmental and somatic dysfunction of thoracic region acute Disc displacement, lumbar ch ronic Back pain acute Segmental and somatic dysfunction of cervical region acute Segmental and somatic dysfunction of lumbar region acute Segmental and somatic dysfunction of pelvic region acute Segmental and somatic dysfunction of thoracic region acute Disc displacement, lumbar ch ronic Back pain acute Segmental and somatic dysfunction of cervical region acute Segmental and somatic dysfunction of lumbar region acute Segmental and somatic dysfunction of pelvic region acute Segmental and somatic dysfunction of thoracic region acute Disc displacement, lumbar ch ronic [facility] Work Phone: Evaluation note* Diagnosis Post concussion syndrome Postconcussion syndrome Intractable acute post-traumatic headache Acute post-traumatic headache Dizziness Dizziness and giddiness Cervicalgia [facility] Diagnosis Post concussive syndrome Postconcussion syndrome Headache, unspecified headache type [facility] Diagnosis Onset Date Resolution Status Back pain acute Segmental and somatic dysfunction of cervical region acute Segmental and somatic dysfunction of lumbar region acute Segmental and somatic dysfunction of pelvic region acute Segmental and somatic dysfunction of thoracic region acute Disc displacement, lumbar ch ronic Back pain acute Segmental and somatic dysfunction of cervical region acute Segmental and somatic dysfunction of lumbar region acute Segmental and somatic dysfunction of pelvic region acute Segmental and somatic dysfunction of thoracic region acute Disc displacement, lumbar ch ronic Back pain acute Segmental and somatic dysfunction of cervical region acute Segmental and somatic dysfunction of lumbar region acute Segmental and somatic dysfunction of pelvic region acute Segmental and somatic dysfunction of thoracic region acute Disc displacement, lumbar ch ronic Back pain acute Segmental and somatic dysfunction of cervical region acute Segmental and somatic dysfunction of lumbar region acute Segmental and somatic dysfunction of pelvic region acute Segmental and somatic dysfunction of thoracic region acute Disc displacement, lumbar ch ronic Arm paresthesia, left resolv ed Facial paresthesia resolved Left leg paresthesias resolv ed Back pain acute Segmental and somatic dysfunction of cervical region acute Segmental and somatic dysfunction of lumbar region acute Segmental and somatic dysfunction of pelvic region acute Segmental and somatic dysfunction of thoracic region acute Disc displacement, lumbar ch ronic Back pain acute Segmental and somatic dysfunction of cervical region acute Segmental and somatic dysfunction of lumbar region acute Segmental and somatic dysfunction of pelvic region acute Segmental and somatic dysfunction of thoracic region acute Disc displacement, lumbar ch ronic [facility] Work Phone: Evaluation note* Diagnosis Onset Date Resolution Status Back pain acute Segmental and somatic dysfunction of cervical region acute Segmental and somatic dysfunction of lumbar region acute Segmental and somatic dysfunction of pelvic region acute Segmental and somatic dysfunction of thoracic region acute Disc displacement, lumbar ch ronic Back pain acute Segmental and somatic dysfunction of cervical region acute Segmental and somatic dysfunction of lumbar region acute Segmental and somatic dysfunction of pelvic region acute Segmental and somatic dysfunction of thoracic region acute Disc displacement, lumbar ch ronic Arm paresthesia, left resolv ed Facial paresthesia resolved Left leg paresthesias resolv ed Back pain acute Segmental and somatic dysfunction of cervical region acute Segmental and somatic dysfunction of lumbar region acute Segmental and somatic dysfunction of pelvic region acute Segmental and somatic dysfunction of thoracic region acute Disc displacement, lumbar ch ronic Back pain acute Segmental and somatic dysfunction of cervical region acute Segmental and somatic dysfunction of lumbar region acute Segmental and somatic dysfunction of pelvic region acute Segmental and somatic dysfunction of thoracic region acute Disc displacement, lumbar ch ronic [facility] Work Phone: Evaluation note* Diagnosis Essential (primary) hypertension- Primary Unspecified essential hypertension LETITIA (obstructive sleep apnea) Obstructive sleep apnea (adult) (pediatric) Fatty liver Other chronic nonalcoholic liver disease Vertigo Dizziness and giddiness Anxiety Anxiety state, unspecified [facility] Encounter for screening mammogram for malignant neoplasm of breast- Primary Other screening mammogram [facility] Diagnosis Onset Date Resolution Status Back pain acute Segmental and somatic dysfunction of cervical region acute Segmental and somatic dysfunction of lumbar region acute Segmental and somatic dysfunction of pelvic region acute Segmental and somatic dysfunction of thoracic region acute Disc displacement, lumbar ch ronic Back pain acute Segmental and somatic dysfunction of cervical region acute Segmental and somatic dysfunction of lumbar region acute Segmental and somatic dysfunction of pelvic region acute Segmental and somatic dysfunction of thoracic region acute Disc displacement, lumbar ch ronic Obesity chronic LETITIA (obstructive sleep apnea) chronic [facility] Work Phone: Evaluation note* Diagnosis Intractable chronic migraine without aura and without status migrainosus- Primary Chronic migraine without aura, with intractable migraine, so stated, without mention of status migrainosus [facility] Diagnosis Onset Date Resolution Status Obesity chronic LETITIA (obstructive sleep apnea) chronic [facility] Work Phone: Evaluation note* Diagnosis Intractable chronic migraine without aura and without status migrainosus- Primary Chronic migraine without aura, with intractable migraine, so stated, without mention of status migrainosus [facility] Diagnosis Headache, unspecified headache type [facility] Diagnosis Headache, unspecified headache type [facility] Diagnosis Left sided sciatica- Primary Sciatica Screening for depression [facility] Diagnosis Acute cough- Primary [facility] Diagnosis Bronchitis- Primary Bronchitis, not specified as acute or chronic Type 2 diabetes mellitus with microalbuminuria, with long-term current use of insulin (HCC) Wheezing [facility]* Diagnosis Type 2 diabetes mellitus with microalbuminuria, with long-term current use of insulin (HCC)- Primary [facility] Diagnosis Cough, unspecified type- Primary [facility] Diagnosis Pain of right heel Pain in limb [facility] Diagnosis Well adult exam- Primary Routine general medical examination at a health care facility Essential (primary) hypertension Unspecified essential hypertension LETITIA (obstructive sleep apnea) Obstructive sleep apnea (adult) (pediatric) Nonalcoholic fatty liver Type 2 diabetes mellitus with microalbuminuria, with long-term current use of insulin (HCC) Vertigo Dizziness and giddiness Morbid obesity (HCC) Morbid obesity Anxiety Anxiety state, unspecified Prolonged Q-T interval on ECG Nonspecific abnormal electrocardiogram (ECG) (EKG) Herniation of lumbar intervertebral disc with 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, lumbar region [facility] Diagnosis Intractable chronic migraine without aura and without status migrainosus- Primary Chronic migraine without aura, with intractable migraine, so stated, without mention of status migrainosus [facility] Diagnosis Dysuria- Primary Type 2 diabetes mellitus with microalbuminuria, with long-term current use of insulin (HCC) Primary insomnia Persistent disorder of initiating or maintaining sleep [facility] Flank pain- Primary Abdominal pain, unspecified site documented in this [facility] Diagnosis Flank pain Abdominal pain, unspecified site [facility] Diagnosis SOB (shortness of breath) Shortness of breath [facility] Diagnosis Sinobronchitis- Primary Unspecified sinusitis (chronic) Hypokalemia Hypopotassemia documented [facility]* Diagnosis Sinobronchitis- Primary Unspecified sinusitis (chronic) documented [facility]* Diagnosis Encounter for screening mammogram for breast cancer documented [facility]* Diagnosis LETITIA (obstructive sleep apnea)- Primary Obstructive sleep apnea (adult) (pediatric) Flank pain Abdominal pain, unspecified site Headache, unspecified headache type Type 2 diabetes mellitus with microalbuminuria, with long-term current use of insulin (HCC) Essential (primary) hypertension Unspecified essential hypertension Chronic left shoulder pain Pain in joint, shoulder region Anxiety Anxiety state, unspecified Screening for depression documented [facility] this [facility]* Diagnosis Intractable chronic migraine without aura and without status migrainosus- Primary Chronic migraine without aura, with intractable migraine, so stated, without mention of status migrainosus Chronic left shoulder pain Pain in joint, shoulder region [facility]* Diagnosis Intractable chronic migraine without aura and with status migrainosus- Primary Chronic migraine without aura, with intractable migraine, so stated, with status migrainosus documented [facility]* Diagnosis Spasm of muscle [facility]* Diagnosis Flank pain Abdominal pain, unspecified site [facility] Orders* Electrophysiology Location: None Selected [facility] Work Phone: Hospital Discharge instructions Additional Instructions Thank you for trusting us with your care today! Please take Tylenol (2 pills, 650 mg), ibuprofen (2 pills, 400 mg) every 6 hours as needed for pain and fever control. Please take Augmentin as prescribed. Please use eardrops as prescribed. Please return to the emergency department if your symptoms change or worsen. Please follow with your primary care physician for further outpatient evaluation and management.[facility] Work Phone: Reason for referral (narrative)* Diagnostic Procedure Only (Routine) - Pending Review Specialty Diagnoses / Procedures Referred By Contac t Referred To Contact XR IMAGING Diagnoses Rib pain Procedures XR RIBS/CHEST 3V AP RIB/OBLS/CXR LEFT RADEX RIBS UNI W/POSTEROANT CH MINIMUM 3 VIEWS Ivette Grimes MD [address] [place] [address] Xr Imaging Referral ID Status Reason Start Date Expiration Date Visits Requested Visits Authorized [id number] Pending Review Auto-Generat ed Referral 05/01/2022 05/31/2023 1 1 [facility] for referral (narrative)* - Pending Review Specialty Diagnoses / Procedures Referred By Contac t Referred To Contact Physical Therapy Diagnoses Chronic left shoulder pain Adhesive capsulitis of left shoulder Primary osteoarthritis of left shoulder Procedures CONSULT TO PHYSICAL THERAPY Adelina Mason, THOM.ELECTROTYPER HELPER [address] [place] [address] Referral ID Status Reason Start Date Expiration Date V isits Requested Visits Authorized [id number] Pending Review 05/24/2022 08/22/2022 1 1 [facility] for referral (narrative)* Outpatient Procedure (Routine) - Closed Specialty Diagnoses / Procedures Referred By Contac t Referred To Contact [facility] Diagnoses Prolonged Q-T interval on ECG Procedures ECG COMPLETE ECG ROUTINE ECG W/LEAST 12 LDS W/I&R Ivette Grimes MD [address] [place] [address] [facility] [place] [address] [place] [address] Referral ID Status Reason Start Date Expiration Date V isits Requested Visits Authorized [id number] Closed Auto-Generate d Referral 09/04/2022 09/04/2023 1 1 [facility] for referral (narrative)* Diagnostic Procedure Only (Routine) - Pending Review Specialty Diagnoses / Procedures Referred By Petra t Referred To Contact US IMAGING Diagnoses Soft tissue mass Procedures US HEAD/NECK SOFT TISSUE OTHER US SOFT TISSUE HEAD & NECK REAL TIME IMGE DOCIvette Iglesias MD [address] [place] [address] [facility] Referral ID Status Reason Start Date Expiration Date Visits Requested Visits Authorized [id number] Pending Review Auto-Generat ed Referral 01/31/2023 03/01/2024 1 1 [facility] for referral (narrative)* Outpatient Procedure (Routine) - Pending Review Specialty Diagnoses / Procedures Referred By Petra t Referred To Contact [facility] Diagnoses Altered awareness, transient Procedures EPIL EEG ROUTINE ELECTROENCEPHALOGRAM REC COMA/SLEEP ONLY Fatuma Beckford PA-C [address] [place] [address] [facility] [place] [address] [place] [address] Referral ID Status Reason Start Date Expiration Date Visits Requested Visits Authorized [id number] Pending Review Auto-Generat ed Referral 03/05/2023 03/05/2024 1 1 [facility] for referral (narrative)* Diagnostic Procedure Only (Routine) - Pending Review Specialty Diagnoses / Procedures Referred By Petra t Referred To Contact BR IMAGING Diagnoses Encounter for screening mammogram for malignant neoplasm of breast Procedures FLASH SCREENING SCREENING MAMMOGRAPHY BI 2-VIEW BREAST INC CAD Ivette Grimes MD [address] [place] [address] Br Imaging [facility] [place] [address] Referral ID Status Reason Start Date Expiration Date Visits Requested Visits Authorized [id number] Pending Review Auto-Generat ed Referral 06/06/2023 07/05/2024 1 1 * Transition of Care (Routine) - Ref Not Required Specialty Diagnoses / Procedures Referred By Contac t Referred To Contact Pain Management Diagnoses Chronic left shoulder pain Herniation of lumbar intervertebral disc with radiculopathy Procedures CONSULT TO PAIN MGT Ivette Grimes MD [address] [place] [address] Referral ID Status Reason Start Date Expiration Date Visits Requested Visits Authorized [id number] Ref Not Required PCP Requested Referral 06/06/2023 06/05/2024 1 1 [facility] Diagnostic Procedure Only (Routine) - Closed Specialty Diagnoses / Procedures Referred By Contac t Referred To Contact MR IMAGING Diagnoses Post concussion syndrome Intractable acute post-traumatic headache Dizziness Cervicalgia Procedures MRI CERVICAL SPINE WO IVCON MRI SPINAL CANAL CERVICAL W/O CONTRAST MATRL Ivette Mejia Jr., MD [address] [facility] [address] [place] [address] [place] [address] Referral ID Status Reason Start Date Expiration Date V isits Requested Visits Authorized [id number] Closed Auto-Generat ed Referral Patient Cleared - Admin/Chairm an/Director advise to proceed or did not respond 02/26/2023 02/28/2023 1 1 * Diagnostic Procedure Only (Routine) - Closed Specialty Diagnoses / Procedures Referred By Contac t Referred To Contact MR IMAGING Diagnoses Post concussion syndrome Intractable acute post-traumatic headache Dizziness Cervicalgia Procedures MRI BRAIN WO IVCON MRI BRAIN BRAIN STEM W/O CONTRAST MATERIAL Ivette Mejia Jr., MD [address] [facility] [address] [place] [address] [place] [address] Referral ID Status Reason Start Date Expiration Date V isits Requested Visits Authorized [id number] Closed Auto-Generat ed Referral Patient Cleared - Admin/Chairm an/Director advise to proceed or did not respond 02/26/2023 02/28/2023 1 1 [facility] for referral (narrative)* Diagnostic Procedure Only (Routine) - Pending Review Specialty Diagnoses / Procedures Referred By Petra meek Referred To Contact BR IMAGING Diagnoses Encounter for screening mammogram for malignant neoplasm of breast Procedures FLASH SCREENING W JAQUELIN SCREENING DIGITAL BREAST TOMOSYNTHESIS BI SCREENING MAMMOGRAPHY BI 2-VIEW BREAST INC CAD Ivette Grimes MD [address] [place] [address] [facility] [address] [place] [address] Referral ID Status Reason Start Date Expiration Date Visits Requested Visits Authorized [id number] Pending Review Auto-Generat ed Referral 12/09/2023 01/07/2025 1 1 [facility] for referral (narrative)* Diagnostic Procedure Only (Urgent) - Closed Specialty Diagnoses / Procedures Referred By Petra meek Referred To Contact XR IMAGING Diagnoses Pain of right heel Procedures XR FOOT GENERAL 3V AP/LAT/OBL RIGHT RADEX FOOT COMPLETE MINIMUM 3 VIEWS Nicole Anton PA-C [address] [place] [address] [place] [address] Referral ID Status Reason Start Date Expiration Date V isits Requested Visits Authorized [id number] Closed Auto-Generate d Referral 05/28/2023 06/26/2024 1 1 T [facility] for referral (narrative)No reason for referral information [facility] Work Phone: Reason for visit Narrative* Diagnostic Procedure Only (Routine) - Closed Specialty Diagnoses / Procedures Referred By Petra meek Referred To Contact MR IMAGING Diagnoses Post concussion syndrome Intractable acute post-traumatic headache Dizziness Cervicalgia Procedures MRI CERVICAL SPINE WO IVCON MRI SPINAL CANAL CERVICAL W/O CONTRAST MATRL Ivette Mejia Jr., MD [address] [facility] [address] [place] [address] [place] [address] Referral ID Status Reason Start Date Expiration Date V isits Requested Visits Authorized [id number] Closed Auto-Generat ed Referral Patient Cleared - Admin/Chairm an/Director advise to proceed or did not respond 02/26/2023 02/28/2023 1 1 [facility]* Diagnostic Procedure Only (Urgent) - Closed Specialty Diagnoses / Procedures Referred By Contac t Referred To Contact XR IMAGING Diagnoses Pain of right heel Procedures XR FOOT GENERAL 3V AP/LAT/OBL RIGHT RADEX FOOT COMPLETE MINIMUM 3 VIEWS Nicole Anton, PA-C [address] [place] [address] [place] [address] Referral ID Status Reason Start Date Expiration Date V isits Requested Visits Authorized [id number] Closed Auto-Generate d Referral 05/28/2023 06/26/2024 1 1 [facility] Family History No Family History Records Found Relationship Condition Age at Onset Recorded Date/T kourtney father Diabetes mellitus Unknown Myocardial infarction Unknown Malignant neoplasm of pancreas Unknown mother Alcohol abuse Unknown Drug abuse Unknown grandfather Diabetes mellitus Unknown grandmother Malignant neoplasm of lung Unknown grandmother Cardiac disease Unknown Advance Directives No Advanced Directives Records Found Advance Directive Response Recorded Date/ Time Advance Directives No November 21, 2021 3:58pm Living Will No November 21 3:58pm Power of Individual Small Group Instructor No November 21, 2021 3:58pm Advance Directive Response Recorded Date/ Time Advance Directives No November 21, 2021 3:58pm Living Will No February 27, 2022 10:01am Power of Individual Small Group Instructor No February 27 10:01am Advance Directive Response Recorded Date/ Time Advance Directives No November 21, 2021 2:58pm Living Will No February 27, 2022 9:01am Power of Individual Small Group Instructor No February 27 9:01am Advance Directive Response Recorded Date/ Time Advance Directives No November 21, 2021 2:58pm Living Will No November 24 11:49am Power of Individual Small Group Instructor No November 24, 2022 11:49am Advance Directive Response Recorded Date/ Time Advance Directives No November 21, 2021 2:58pm Living Will No November 27 3:43pm Power of Individual Small Group Instructor No November 27, 2022 3:43pm Advance Directive Response Recorded Date/ Time Advance Directives No November 21, 2021 3:58pm Living Will No December 03 7:35pm Power of Individual Small Group Instructor No December 03, 2022 7:35pm Advance Directive Response Recorded Date/ Time Advance Directives No November 21, 2021 3:58pm Living Will No May 20, 2023 9:41pm Power of Individual Small Group Instructor No May 20 9:41pm Advance Directive Response Recorded Date/ Time Advance Directives No November 21, 2021 3:58pm Living Will No August 05 9:54am Power of Individual Small Group Instructor No August 05 2 023 9:54am Advance Directive Response Recorded Date/ Time Advance Directives No November 21, 2021 2:58pm Living Will No August 05 12:04pm Power of Individual Small Group Instructor No August 05, 2 023 12:04pm Advance Directive Response Recorded Date/ Time Advance Directives No November 21, 2021 2:58pm Living Will No October 27, 2 023 4:06pm Power of Individual Small Group Instructor No October 27, 2023 4:06pm Advance Directive Response Recorded Date/ Time Advance Directives No November 21, 2021 3:58pm Living Will No February 04, 2024 1:16am Power of Individual Small Group Instructor No February 03 1:16am Advance Directive Response Recorded Date/ Time Advance Directives No October 07, 2024 8:43am Living Will No October 16, 2 024 10:17pm Do you have a Healthcare Power of Individual Small Group Instructor? No October 16, 2024 10:17pm Living Will No November 11 7:01am Do you have a Healthcare Power of Individual Small Group Instructor? No November 11, 2024 7:01am Advance Directive Response Recorded Date/ Time Advance Directives No March 09, 2025 9:20am Medications Administered Section Inactive Administered Medications - up to 3 most recent administrations Medication Order MAR Action Action Date Dose Rate Site bupivacaine(PF) 0.75 % (7.5 mg/mL) 37.5 mg injection (MARCAINE PF) 37.5 mg (5 mL), OTHER, ONCE, 1 dose, On Michelle 05/10/22 at 1100 Given by LIP 05/10/2022 10:55 AM EDT 37.5 mg Inactive Administered Medications - up to 3 most recent administrations Medication Order MAR Action Action Date Dose Rate Site onabotulinum toxin type A 200 Units injection (BOTOX) 200 Units, INTRAMUSCULAR, ONCE, 1 dose, On Sat01/22/23 at 1130, REFRIGERATE - Pharmaceutical Waste: Lab Pack - Given 01/22/2023 11:48 AM EDT 155 Units Other Inactive Administered Medications - up to 3 most recent administrations Medication Order MAR Action Action Date Dose Rate Site onabotulinum toxin type A 200 Units injection (BOTOX) 200 Units, INTRAMUSCULAR, ONCE, 1 dose, On Sat05/17/23 at 1030, This record documents the total dose provided to patient. See progress note for specific locations and amounts administered. Given 05/17/2023 10:27 AM EDT 200 Units Oth er Reason for Referral Specialty Diagnoses / Procedures Referred By Contac t Referred To Contact Diagnoses Intractable migraine without aura and without status migrainosus Procedures CONSULT TO HEADACHE CLINIC OFFICE/OUTPATIENT [facility]3] 60-74 MINUTES Tara Gillette, THOM.ELECTROTYPER HELPER [address] [place] [address] Referral ID Status Reason Start Date Expiration Date Visits Requested Visits Authorized [id number] Authorized PCP Requested Referral 06/07/2022 06/07/2023 1 1 Specialty Diagnoses / Procedures Referred By Contac t Referred To Contact MR IMAGING Diagnoses Post concussion syndrome Intractable acute post-traumatic headache Dizziness Cervicalgia Procedures MRI CERVICAL SPINE WO IVCON MRI SPINAL CANAL CERVICAL W/O CONTRAST Ivette Ansari Jr., MD [address] [facility] [address] [place] [address] Mr Imaging Referral ID Status Reason Start Date Expiration Date Visits Requested Visits Authorized [id number] Pending Review Auto-Generat ed Referral 12/07/2022 01/06/2024 1 1 Specialty Diagnoses / Procedures Referred By Contac t Referred To Contact MR IMAGING Diagnoses Post concussion syndrome Intractable acute post-traumatic headache Dizziness Cervicalgia Procedures MRI BRAIN WO IVCON MRI BRAIN BRAIN STEM W/O CONTRAST MATERIAL Ivette Mejia Jr., MD [address] [address] Mr Imaging Referral ID Status Reason Start Date Expiration Date Visits Requested Visits Authorized [id number] Pending Review Auto-Generat ed Referral 12/07/2022 01/06/2024 1 1 Specialty Diagnoses / Procedures Referred By Contac t Referred To Contact CT IMAGING Diagnoses Soft tissue mass Procedures CT NECK SOFT TISSUE W IVCON CT SOFT TISSUE NECK W/CONTRAST MATERIAL Ivette Grimes MD [address] [place] [address] [address] Referral ID Status Reason Start Date Expiration Date Visits Requested Visits Authorized [id number] Pending Review Auto-Generat ed Referral 02/28/2023 03/29/2024 1 1 Specialty Diagnoses / Procedures Referred By Contac t Referred To Contact [facility] Diagnoses Post concussive syndrome Procedures CONSULT TO SPEECH THERAPY OFFICE/OUTPATIENT [facility]3] 60-74 MINUTES Fatuma Beckford PA-C [address] [place] [address] [facility] [place] [address] [place] [address] Referral ID Status Reason Start Date Expiration Date Visits Requested Visits Authorized [id number] Pending Review Auto-Generat ed Referral 05/17/2023 05/16/2024 1 1 Specialty Diagnoses / Procedures Referred By Contac t Referred To Contact Fatuma Beckford PA-C [address] [place] [address] Referral ID Status Reason Start Date Expiration Date Visits Re quested Visits Authorized [id number] Closed 1 1 Specialty Diagnoses / Procedures Referred By Contac t Referred To Contact Diagnoses Type 2 diabetes mellitus with microalbuminuria, with long-term current use of insulin (HCC) Ivette Grimes MD [address] [place] [address] [place] [address] Referral ID Status Reason Start Date Expiration Date Visits Re quested Visits Authorized [id number] Closed 1 1 Chief Complaint and Reason for Visit Chief Complaint Back pain Back pain Back pain Back pain Back pain Back pain Back pain Back pain LUMBAR DISC/ DN/ RX HERE Back pain Reason for Visit Back pain Segmental and somatic dysfunction of cervical region Segmental and somatic dysfunction of lumbar region Segmental and somatic dysfunction of pelvic region Segmental and somatic dysfunction of thoracic region Disc displacement, lumbar Back pain Segmental and somatic dysfunction of cervical region Segmental and somatic dysfunction of lumbar region Segmental and somatic dysfunction of pelvic region Segmental and somatic dysfunction of thoracic region Disc displacement, lumbar Back pain Segmental and somatic dysfunction of cervical region Segmental and somatic dysfunction of lumbar region Segmental and somatic dysfunction of pelvic region Segmental and somatic dysfunction of thoracic region Disc displacement, lumbar Back pain Segmental and somatic dysfunction of cervical region Segmental and somatic dysfunction of lumbar region Segmental and somatic dysfunction of pelvic region Segmental and somatic dysfunction of thoracic region Disc displacement, lumbar Back pain Segmental and somatic dysfunction of cervical region Segmental and somatic dysfunction of lumbar region Segmental and somatic dysfunction of pelvic region Segmental and somatic dysfunction of thoracic region Disc displacement, lumbar Back pain Segmental and somatic dysfunction of cervical region Segmental and somatic dysfunction of lumbar region Segmental and somatic dysfunction of pelvic region Segmental and somatic dysfunction of thoracic region Disc displacement, lumbar Back pain Segmental and somatic dysfunction of cervical region Segmental and somatic dysfunction of lumbar region Segmental and somatic dysfunction of pelvic region Segmental and somatic dysfunction of thoracic region Disc displacement, lumbar Back pain Segmental and somatic dysfunction of cervical region Segmental and somatic dysfunction of lumbar region Segmental and somatic dysfunction of pelvic region Segmental and somatic dysfunction of thoracic region Disc displacement, lumbar Back pain Segmental and somatic dysfunction of cervical region Segmental and somatic dysfunction of lumbar region Segmental and somatic dysfunction of pelvic region Segmental and somatic dysfunction of thoracic region Disc displacement, lumbar Chief Complaint Back pain Back pain Back pain Back pain Back pain Back pain Back pain LUMBAR DISC/ DN/ RX HERE Back pain Back pain 1 Y FU LUMBAR DISC/ DN/ RX HERE 2 ORDERING JOSE MOBLEY SCREENING Reason for Visit Segmental and somati c dysfunction of lumbar region Back pain Disc displacement, lumbar Segmental and somatic dysfunction of cervical region Segmental and somatic dysfunction of pelvic region Segmental and somatic dysfunction of thoracic region Segmental and somatic dysfunction of lumbar region Back pain Disc displacement, lumbar Segmental and somatic dysfunction of cervical region Segmental and somatic dysfunction of pelvic region Segmental and somatic dysfunction of thoracic region Segmental and somatic dysfunction of lumbar region Back pain Disc displacement, lumbar Segmental and somatic dysfunction of cervical region Segmental and somatic dysfunction of pelvic region Segmental and somatic dysfunction of thoracic region Segmental and somatic dysfunction of lumbar region Back pain Disc displacement, lumbar Segmental and somatic dysfunction of cervical region Segmental and somatic dysfunction of pelvic region Segmental and somatic dysfunction of thoracic region Segmental and somatic dysfunction of lumbar region Back pain Disc displacement, lumbar Segmental and somatic dysfunction of cervical region Segmental and somatic dysfunction of pelvic region Segmental and somatic dysfunction of thoracic region Segmental and somatic dysfunction of lumbar region Back pain Disc displacement, lumbar Segmental and somatic dysfunction of cervical region Segmental and somatic dysfunction of pelvic region Segmental and somatic dysfunction of thoracic region Segmental and somatic dysfunction of lumbar region Back pain Disc displacement, lumbar Segmental and somatic dysfunction of cervical region Segmental and somatic dysfunction of pelvic region Segmental and somatic dysfunction of thoracic region Segmental and somatic dysfunction of lumbar region Back pain Disc displacement, lumbar Segmental and somatic dysfunction of cervical region Segmental and somatic dysfunction of pelvic region Segmental and somatic dysfunction of thoracic region Segmental and somatic dysfunction of lumbar region Back pain Disc displacement, lumbar Segmental and somatic dysfunction of cervical region Segmental and somatic dysfunction of pelvic region Segmental and somatic dysfunction of thoracic region Obesity Chief Complaint Back pain Back pain Back pain Back pain Back pain Back pain LUMBAR DISC/ DN/ RX HERE Back pain Back pain 1 Y FU 2 ORDERING JOSE MEJIA & SYDNEY SCREENING LUMBAR DISC/ DN/ RX HERE ABN EKG (SYDNEY) Reason for Visit Segmental and somati c dysfunction of lumbar region Back pain Disc displacement, lumbar Segmental and somatic dysfunction of cervical region Segmental and somatic dysfunction of pelvic region Segmental and somatic dysfunction of thoracic region Segmental and somatic dysfunction of lumbar region Back pain Disc displacement, lumbar Segmental and somatic dysfunction of cervical region Segmental and somatic dysfunction of pelvic region Segmental and somatic dysfunction of thoracic region Segmental and somatic dysfunction of lumbar region Back pain Disc displacement, lumbar Segmental and somatic dysfunction of cervical region Segmental and somatic dysfunction of pelvic region Segmental and somatic dysfunction of thoracic region Segmental and somatic dysfunction of lumbar region Back pain Disc displacement, lumbar Segmental and somatic dysfunction of cervical region Segmental and somatic dysfunction of pelvic region Segmental and somatic dysfunction of thoracic region Segmental and somatic dysfunction of lumbar region Back pain Disc displacement, lumbar Segmental and somatic dysfunction of cervical region Segmental and somatic dysfunction of pelvic region Segmental and somatic dysfunction of thoracic region Segmental and somatic dysfunction of lumbar region Back pain Disc displacement, lumbar Segmental and somatic dysfunction of cervical region Segmental and somatic dysfunction of pelvic region Segmental and somatic dysfunction of thoracic region Segmental and somatic dysfunction of lumbar region Back pain Disc displacement, lumbar Segmental and somatic dysfunction of cervical region Segmental and somatic dysfunction of pelvic region Segmental and somatic dysfunction of thoracic region Segmental and somatic dysfunction of lumbar region Back pain Disc displacement, lumbar Segmental and somatic dysfunction of cervical region Segmental and somatic dysfunction of pelvic region Segmental and somatic dysfunction of thoracic region Obesity Abnormal ECG Hypertension Obesity Type 2 diabetes mellitus Chief Complaint Back pain Back pain Back pain Back pain Back pain LUMBAR DISC/ DN/ RX HERE Back pain Back pain 1 Y FU 2 ORDERING JOSE MEJIA & SYDNEY SCREENING ABN EKG (SYDNEY) Back pain ABN ECG LUMBAR DISC/ DN/ RX HERE Reason for Visit Back pain Segmental and somatic dysfunction of cervical region Segmental and somatic dysfunction of lumbar region Segmental and somatic dysfunction of pelvic region Segmental and somatic dysfunction of thoracic region Disc displacement, lumbar Back pain Segmental and somatic dysfunction of cervical region Segmental and somatic dysfunction of lumbar region Segmental and somatic dysfunction of pelvic region Segmental and somatic dysfunction of thoracic region Disc displacement, lumbar Back pain Segmental and somatic dysfunction of cervical region Segmental and somatic dysfunction of lumbar region Segmental and somatic dysfunction of pelvic region Segmental and somatic dysfunction of thoracic region Disc displacement, lumbar Back pain Segmental and somatic dysfunction of cervical region Segmental and somatic dysfunction of lumbar region Segmental and somatic dysfunction of pelvic region Segmental and somatic dysfunction of thoracic region Disc displacement, lumbar Back pain Segmental and somatic dysfunction of cervical region Segmental and somatic dysfunction of lumbar region Segmental and somatic dysfunction of pelvic region Segmental and somatic dysfunction of thoracic region Disc displacement, lumbar Back pain Segmental and somatic dysfunction of cervical region Segmental and somatic dysfunction of lumbar region Segmental and somatic dysfunction of pelvic region Segmental and somatic dysfunction of thoracic region Disc displacement, lumbar Back pain Segmental and somatic dysfunction of cervical region Segmental and somatic dysfunction of lumbar region Segmental and somatic dysfunction of pelvic region Segmental and somatic dysfunction of thoracic region Disc displacement, lumbar Obesity Abnormal ECG Hypertension Obesity Type 2 diabetes mellitus Back pain Segmental and somatic dysfunction of cervical region Segmental and somatic dysfunction of lumbar region Segmental and somatic dysfunction of pelvic region Segmental and somatic dysfunction of thoracic region Disc displacement, lumbar Chief Complaint Back pain Back pain Back pain Back pain LUMBAR DISC/ DN/ RX HERE Back pain Back pain 1 Y FU 2 ORDERING JOSE MOBLEY SCREENING ABN EKG (SYDNEY) Back pain ABN ECG LUMBAR DISC/ DN/ RX HERE Back pain Reason for Visit Back pain Segmental and somatic dysfunction of cervical region Segmental and somatic dysfunction of lumbar region Segmental and somatic dysfunction of pelvic region Segmental and somatic dysfunction of thoracic region Disc displacement, lumbar Back pain Segmental and somatic dysfunction of cervical region Segmental and somatic dysfunction of lumbar region Segmental and somatic dysfunction of pelvic region Segmental and somatic dysfunction of thoracic region Disc displacement, lumbar Back pain Segmental and somatic dysfunction of cervical region Segmental and somatic dysfunction of lumbar region Segmental and somatic dysfunction of pelvic region Segmental and somatic dysfunction of thoracic region Disc displacement, lumbar Back pain Segmental and somatic dysfunction of cervical region Segmental and somatic dysfunction of lumbar region Segmental and somatic dysfunction of pelvic region Segmental and somatic dysfunction of thoracic region Disc displacement, lumbar Back pain Segmental and somatic dysfunction of cervical region Segmental and somatic dysfunction of lumbar region Segmental and somatic dysfunction of pelvic region Segmental and somatic dysfunction of thoracic region Disc displacement, lumbar Back pain Segmental and somatic dysfunction of cervical region Segmental and somatic dysfunction of lumbar region Segmental and somatic dysfunction of pelvic region Segmental and somatic dysfunction of thoracic region Disc displacement, lumbar Obesity Abnormal ECG Hypertension Obesity Type 2 diabetes mellitus Back pain Segmental and somatic dysfunction of cervical region Segmental and somatic dysfunction of lumbar region Segmental and somatic dysfunction of pelvic region Segmental and somatic dysfunction of thoracic region Disc displacement, lumbar Back pain Segmental and somatic dysfunction of cervical region Segmental and somatic dysfunction of lumbar region Segmental and somatic dysfunction of pelvic region Segmental and somatic dysfunction of thoracic region Disc displacement, lumbar Chief Complaint Back pain Back pain LUMBAR DISC/ DN/ RX HERE Back pain Back pain 1 Y FU 2 ORDERING JOSE MEJIA & SYDNEY SCREENING ABN EKG (SYDNEY) Back pain ABN ECG Back pain Back pain LETITIA,DEVICE SWAP LUMBAR DISC/ DN/ RX HERE Back pain Reason for Visit Back pain Segmental and somatic dysfunction of cervical region Segmental and somatic dysfunction of lumbar region Segmental and somatic dysfunction of pelvic region Segmental and somatic dysfunction of thoracic region Disc displacement, lumbar Back pain Segmental and somatic dysfunction of cervical region Segmental and somatic dysfunction of lumbar region Segmental and somatic dysfunction of pelvic region Segmental and somatic dysfunction of thoracic region Disc displacement, lumbar Back pain Segmental and somatic dysfunction of cervical region Segmental and somatic dysfunction of lumbar region Segmental and somatic dysfunction of pelvic region Segmental and somatic dysfunction of thoracic region Disc displacement, lumbar Back pain Segmental and somatic dysfunction of cervical region Segmental and somatic dysfunction of lumbar region Segmental and somatic dysfunction of pelvic region Segmental and somatic dysfunction of thoracic region Disc displacement, lumbar Obesity Abnormal ECG Hypertension Obesity Type 2 diabetes mellitus Back pain Segmental and somatic dysfunction of cervical region Segmental and somatic dysfunction of lumbar region Segmental and somatic dysfunction of pelvic region Segmental and somatic dysfunction of thoracic region Disc displacement, lumbar Back pain Segmental and somatic dysfunction of cervical region Segmental and somatic dysfunction of lumbar region Segmental and somatic dysfunction of pelvic region Segmental and somatic dysfunction of thoracic region Disc displacement, lumbar Back pain Segmental and somatic dysfunction of cervical region Segmental and somatic dysfunction of lumbar region Segmental and somatic dysfunction of pelvic region Segmental and somatic dysfunction of thoracic region Disc displacement, lumbar Back pain Segmental and somatic dysfunction of cervical region Segmental and somatic dysfunction of lumbar region Segmental and somatic dysfunction of pelvic region Segmental and somatic dysfunction of thoracic region Disc displacement, lumbar Chief Complaint Back pain 1 Y FU 2 ORDERING JOSE MOBLEY SCREENING ABN EKG (SYDNEY) Back pain ABN ECG Back pain Back pain LETITIA,DEVICE SWAP Back pain Back pain Back pain Back pain LUMBAR DISC/ DN/ RX HERE HEAD INJURY Reason for Visit Back pain Segmental and somatic dysfunction of cervical region Segmental and somatic dysfunction of lumbar region Segmental and somatic dysfunction of pelvic region Segmental and somatic dysfunction of thoracic region Disc displacement, lumbar Obesity Abnormal ECG Hypertension Obesity Type 2 diabetes mellitus Back pain Segmental and somatic dysfunction of cervical region Segmental and somatic dysfunction of lumbar region Segmental and somatic dysfunction of pelvic region Segmental and somatic dysfunction of thoracic region Disc displacement, lumbar Back pain Segmental and somatic dysfunction of cervical region Segmental and somatic dysfunction of lumbar region Segmental and somatic dysfunction of pelvic region Segmental and somatic dysfunction of thoracic region Disc displacement, lumbar Back pain Segmental and somatic dysfunction of cervical region Segmental and somatic dysfunction of lumbar region Segmental and somatic dysfunction of pelvic region Segmental and somatic dysfunction of thoracic region Disc displacement, lumbar Back pain Segmental and somatic dysfunction of cervical region Segmental and somatic dysfunction of lumbar region Segmental and somatic dysfunction of pelvic region Segmental and somatic dysfunction of thoracic region Disc displacement, lumbar Back pain Segmental and somatic dysfunction of cervical region Segmental and somatic dysfunction of lumbar region Segmental and somatic dysfunction of pelvic region Segmental and somatic dysfunction of thoracic region Disc displacement, lumbar Back pain Segmental and somatic dysfunction of cervical region Segmental and somatic dysfunction of lumbar region Segmental and somatic dysfunction of pelvic region Segmental and somatic dysfunction of thoracic region Disc displacement, lumbar Back pain Segmental and somatic dysfunction of cervical region Segmental and somatic dysfunction of lumbar region Segmental and somatic dysfunction of pelvic region Segmental and somatic dysfunction of thoracic region Disc displacement, lumbar Chief Complaint Back pain 1 Y FU 2 ORDERING JOSE MOBLEY SCREENING ABN EKG (SYDNEY) Back pain ABN ECG Back pain Back pain LETITIA,DEVICE SWAP Back pain Back pain Back pain Back pain HEAD INJURY LUMBAR DISC/ DN/ RX HERE Back pain HEADACHE Reason for Visit Back pain Segmental and somatic dysfunction of cervical region Segmental and somatic dysfunction of lumbar region Segmental and somatic dysfunction of pelvic region Segmental and somatic dysfunction of thoracic region Disc displacement, lumbar Obesity Abnormal ECG Hypertension Obesity Type 2 diabetes mellitus Back pain Segmental and somatic dysfunction of cervical region Segmental and somatic dysfunction of lumbar region Segmental and somatic dysfunction of pelvic region Segmental and somatic dysfunction of thoracic region Disc displacement, lumbar Back pain Segmental and somatic dysfunction of cervical region Segmental and somatic dysfunction of lumbar region Segmental and somatic dysfunction of pelvic region Segmental and somatic dysfunction of thoracic region Disc displacement, lumbar Back pain Segmental and somatic dysfunction of cervical region Segmental and somatic dysfunction of lumbar region Segmental and somatic dysfunction of pelvic region Segmental and somatic dysfunction of thoracic region Disc displacement, lumbar Back pain Segmental and somatic dysfunction of cervical region Segmental and somatic dysfunction of lumbar region Segmental and somatic dysfunction of pelvic region Segmental and somatic dysfunction of thoracic region Disc displacement, lumbar Back pain Segmental and somatic dysfunction of cervical region Segmental and somatic dysfunction of lumbar region Segmental and somatic dysfunction of pelvic region Segmental and somatic dysfunction of thoracic region Disc displacement, lumbar Back pain Segmental and somatic dysfunction of cervical region Segmental and somatic dysfunction of lumbar region Segmental and somatic dysfunction of pelvic region Segmental and somatic dysfunction of thoracic region Disc displacement, lumbar Back pain Segmental and somatic dysfunction of cervical region Segmental and somatic dysfunction of lumbar region Segmental and somatic dysfunction of pelvic region Segmental and somatic dysfunction of thoracic region Disc displacement, lumbar Acute cervical myofascial strain Back pain Segmental and somatic dysfunction of cervical region Segmental and somatic dysfunction of lumbar region Segmental and somatic dysfunction of pelvic region Segmental and somatic dysfunction of thoracic region Disc displacement, lumbar Chief Complaint Back pain LETITIA,DEVICE SWAP Back pain Back pain Back pain Back pain HEAD INJURY Back pain HEADACHE HEADACHE Back pain pap usage f/up Back pain prev Cesar pt requested to switch Back pain Back pain LUMBAR DISC/ DN/ RX HERE Reason for Visit Back pain Segmental and somatic dysfunction of cervical region Segmental and somatic dysfunction of lumbar region Segmental and somatic dysfunction of pelvic region Disc displacement, lumbar Back pain Segmental and somatic dysfunction of cervical region Segmental and somatic dysfunction of lumbar region Segmental and somatic dysfunction of pelvic region Disc displacement, lumbar Back pain Segmental and somatic dysfunction of cervical region Segmental and somatic dysfunction of lumbar region Segmental and somatic dysfunction of pelvic region Disc displacement, lumbar Back pain Segmental and somatic dysfunction of cervical region Segmental and somatic dysfunction of lumbar region Segmental and somatic dysfunction of pelvic region Disc displacement, lumbar Back pain Segmental and somatic dysfunction of cervical region Segmental and somatic dysfunction of lumbar region Segmental and somatic dysfunction of pelvic region Disc displacement, lumbar Back pain Segmental and somatic dysfunction of cervical region Segmental and somatic dysfunction of lumbar region Segmental and somatic dysfunction of pelvic region Disc displacement, lumbar Back pain Segmental and somatic dysfunction of cervical region Segmental and somatic dysfunction of lumbar region Segmental and somatic dysfunction of pelvic region Disc displacement, lumbar LETITIA (obstructive sleep apnea) Back pain Segmental and somatic dysfunction of cervical region Segmental and somatic dysfunction of lumbar region Segmental and somatic dysfunction of pelvic region Disc displacement, lumbar Abnormal ECG Hypertension Back pain Segmental and somatic dysfunction of cervical region Segmental and somatic dysfunction of lumbar region Segmental and somatic dysfunction of pelvic region Disc displacement, lumbar Back pain Segmental and somatic dysfunction of cervical region Segmental and somatic dysfunction of lumbar region Segmental and somatic dysfunction of pelvic region Disc displacement, lumbar Chief Complaint Back pain Back pain Back pain HEAD INJURY Back pain HEADACHE HEADACHE Back pain pap usage f/up Back pain prev Cesar pt requested to switch Back pain Back pain LUMBAR DISC/ DN/ RX HERE Back pain SOFT TISSUE MASS LUMBAR DISC/ DN/ RX HERE Back pain Reason for Visit Back pain Segmental and somatic dysfunction of cervical region Segmental and somatic dysfunction of lumbar region Segmental and somatic dysfunction of pelvic region Disc displacement, lumbar Back pain Segmental and somatic dysfunction of cervical region Segmental and somatic dysfunction of lumbar region Segmental and somatic dysfunction of pelvic region Disc displacement, lumbar Back pain Segmental and somatic dysfunction of cervical region Segmental and somatic dysfunction of lumbar region Segmental and somatic dysfunction of pelvic region Disc displacement, lumbar Back pain Segmental and somatic dysfunction of cervical region Segmental and somatic dysfunction of lumbar region Segmental and somatic dysfunction of pelvic region Disc displacement, lumbar Back pain Segmental and somatic dysfunction of cervical region Segmental and somatic dysfunction of lumbar region Segmental and somatic dysfunction of pelvic region Disc displacement, lumbar LETITIA (obstructive sleep apnea) Back pain Segmental and somatic dysfunction of cervical region Segmental and somatic dysfunction of lumbar region Segmental and somatic dysfunction of pelvic region Disc displacement, lumbar Abnormal ECG Hypertension Back pain Segmental and somatic dysfunction of cervical region Segmental and somatic dysfunction of lumbar region Segmental and somatic dysfunction of pelvic region Disc displacement, lumbar Back pain Segmental and somatic dysfunction of cervical region Segmental and somatic dysfunction of lumbar region Segmental and somatic dysfunction of pelvic region Disc displacement, lumbar Back pain Segmental and somatic dysfunction of cervical region Segmental and somatic dysfunction of lumbar region Segmental and somatic dysfunction of pelvic region Disc displacement, lumbar Back pain Segmental and somatic dysfunction of cervical region Segmental and somatic dysfunction of lumbar region Segmental and somatic dysfunction of pelvic region Disc displacement, lumbar Chief Complaint Back pain Back pain HEAD INJURY Back pain HEADACHE HEADACHE Back pain pap usage f/up Back pain prev Cesar pt requested to switch Back pain Back pain LUMBAR DISC/ DN/ RX HERE Back pain SOFT TISSUE MASS Back pain Back pain LUMBAR DISC/ DN/ RX HERE Reason for Visit Back pain Segmental and somatic dysfunction of cervical region Segmental and somatic dysfunction of lumbar region Segmental and somatic dysfunction of pelvic region Disc displacement, lumbar Back pain Segmental and somatic dysfunction of cervical region Segmental and somatic dysfunction of lumbar region Segmental and somatic dysfunction of pelvic region Disc displacement, lumbar Back pain Segmental and somatic dysfunction of cervical region Segmental and somatic dysfunction of lumbar region Segmental and somatic dysfunction of pelvic region Disc displacement, lumbar Back pain Segmental and somatic dysfunction of cervical region Segmental and somatic dysfunction of lumbar region Segmental and somatic dysfunction of pelvic region Disc displacement, lumbar LETITIA (obstructive sleep apnea) Back pain Segmental and somatic dysfunction of cervical region Segmental and somatic dysfunction of lumbar region Segmental and somatic dysfunction of pelvic region Disc displacement, lumbar Abnormal ECG Hypertension Back pain Segmental and somatic dysfunction of cervical region Segmental and somatic dysfunction of lumbar region Segmental and somatic dysfunction of pelvic region Disc displacement, lumbar Back pain Segmental and somatic dysfunction of cervical region Segmental and somatic dysfunction of lumbar region Segmental and somatic dysfunction of pelvic region Disc displacement, lumbar Back pain Segmental and somatic dysfunction of cervical region Segmental and somatic dysfunction of lumbar region Segmental and somatic dysfunction of pelvic region Disc displacement, lumbar Back pain Segmental and somatic dysfunction of cervical region Segmental and somatic dysfunction of lumbar region Segmental and somatic dysfunction of pelvic region Disc displacement, lumbar Back pain Segmental and somatic dysfunction of cervical region Segmental and somatic dysfunction of lumbar region Segmental and somatic dysfunction of pelvic region Disc displacement, lumbar Chief Complaint Back pain SOFT TISSUE MASS Back pain Back pain Back pain ALTERED AWARENESS Back pain Back pain Back pain LUMBAR DISC/ DN/ RX HERE Reason for Visit Back pain Segmental and somatic dysfunction of cervical region Segmental and somatic dysfunction of lumbar region Segmental and somatic dysfunction of pelvic region Disc displacement, lumbar Back pain Segmental and somatic dysfunction of cervical region Segmental and somatic dysfunction of lumbar region Segmental and somatic dysfunction of pelvic region Disc displacement, lumbar Back pain Segmental and somatic dysfunction of cervical region Segmental and somatic dysfunction of lumbar region Segmental and somatic dysfunction of pelvic region Disc displacement, lumbar Back pain Segmental and somatic dysfunction of cervical region Segmental and somatic dysfunction of lumbar region Segmental and somatic dysfunction of pelvic region Disc displacement, lumbar Back pain Segmental and somatic dysfunction of cervical region Segmental and somatic dysfunction of lumbar region Segmental and somatic dysfunction of pelvic region Segmental and somatic dysfunction of thoracic region Disc displacement, lumbar Back pain Segmental and somatic dysfunction of cervical region Segmental and somatic dysfunction of lumbar region Segmental and somatic dysfunction of pelvic region Segmental and somatic dysfunction of thoracic region Disc displacement, lumbar Back pain Segmental and somatic dysfunction of cervical region Segmental and somatic dysfunction of lumbar region Segmental and somatic dysfunction of pelvic region Segmental and somatic dysfunction of thoracic region Disc displacement, lumbar Chief Complaint Back pain SOFT TISSUE MASS Back pain Back pain Back pain ALTERED AWARENESS Back pain Back pain Back pain LUMBAR DISC/ DN/ RX HERE HEAD INJURY Reason for Visit Back pain Segmental and somatic dysfunction of cervical region Segmental and somatic dysfunction of lumbar region Segmental and somatic dysfunction of pelvic region Disc displacement, lumbar Back pain Segmental and somatic dysfunction of cervical region Segmental and somatic dysfunction of lumbar region Segmental and somatic dysfunction of pelvic region Disc displacement, lumbar Back pain Segmental and somatic dysfunction of cervical region Segmental and somatic dysfunction of lumbar region Segmental and somatic dysfunction of pelvic region Disc displacement, lumbar Back pain Segmental and somatic dysfunction of cervical region Segmental and somatic dysfunction of lumbar region Segmental and somatic dysfunction of pelvic region Disc displacement, lumbar Back pain Segmental and somatic dysfunction of cervical region Segmental and somatic dysfunction of lumbar region Segmental and somatic dysfunction of pelvic region Segmental and somatic dysfunction of thoracic region Disc displacement, lumbar Back pain Segmental and somatic dysfunction of cervical region Segmental and somatic dysfunction of lumbar region Segmental and somatic dysfunction of pelvic region Segmental and somatic dysfunction of thoracic region Disc displacement, lumbar Back pain Segmental and somatic dysfunction of cervical region Segmental and somatic dysfunction of lumbar region Segmental and somatic dysfunction of pelvic region Segmental and somatic dysfunction of thoracic region Disc displacement, lumbar Chief Complaint ALTERED AWARENESS Back pain Back pain Back pain HEAD INJURY Back pain Back pain LUMBAR DISC/ DN/ RX HERE BACK PAIN Reason for Visit Back pain Segmental and somatic dysfunction of cervical region Segmental and somatic dysfunction of lumbar region Segmental and somatic dysfunction of pelvic region Segmental and somatic dysfunction of thoracic region Disc displacement, lumbar Back pain Segmental and somatic dysfunction of cervical region Segmental and somatic dysfunction of lumbar region Segmental and somatic dysfunction of pelvic region Segmental and somatic dysfunction of thoracic region Disc displacement, lumbar Back pain Segmental and somatic dysfunction of cervical region Segmental and somatic dysfunction of lumbar region Segmental and somatic dysfunction of pelvic region Segmental and somatic dysfunction of thoracic region Disc displacement, lumbar Back pain Segmental and somatic dysfunction of cervical region Segmental and somatic dysfunction of lumbar region Segmental and somatic dysfunction of pelvic region Segmental and somatic dysfunction of thoracic region Disc displacement, lumbar Back pain Segmental and somatic dysfunction of cervical region Segmental and somatic dysfunction of lumbar region Segmental and somatic dysfunction of pelvic region Segmental and somatic dysfunction of thoracic region Disc displacement, lumbar Back pain Segmental and somatic dysfunction of cervical region Segmental and somatic dysfunction of lumbar region Segmental and somatic dysfunction of pelvic region Segmental and somatic dysfunction of thoracic region Disc displacement, lumbar Chief Complaint Back pain Back pain HEAD INJURY Back pain Back pain LUMBAR DISC/ DN/ RX HERE BACK PAIN LUMBAR DISC/ DN/ RX HERE BACK PAIN TIA Reason for Visit Back pain Segmental and somatic dysfunction of cervical region Segmental and somatic dysfunction of lumbar region Segmental and somatic dysfunction of pelvic region Segmental and somatic dysfunction of thoracic region Disc displacement, lumbar Back pain Segmental and somatic dysfunction of cervical region Segmental and somatic dysfunction of lumbar region Segmental and somatic dysfunction of pelvic region Segmental and somatic dysfunction of thoracic region Disc displacement, lumbar Back pain Segmental and somatic dysfunction of cervical region Segmental and somatic dysfunction of lumbar region Segmental and somatic dysfunction of pelvic region Segmental and somatic dysfunction of thoracic region Disc displacement, lumbar Back pain Segmental and somatic dysfunction of cervical region Segmental and somatic dysfunction of lumbar region Segmental and somatic dysfunction of pelvic region Segmental and somatic dysfunction of thoracic region Disc displacement, lumbar Back pain Segmental and somatic dysfunction of cervical region Segmental and somatic dysfunction of lumbar region Segmental and somatic dysfunction of pelvic region Segmental and somatic dysfunction of thoracic region Disc displacement, lumbar Back pain Segmental and somatic dysfunction of cervical region Segmental and somatic dysfunction of lumbar region Segmental and somatic dysfunction of pelvic region Segmental and somatic dysfunction of thoracic region Disc displacement, lumbar Chief Complaint Back pain Back pain LUMBAR DISC/ DN/ RX HERE BACK PAIN LUMBAR DISC/ DN/ RX HERE BACK PAIN TIA TIA (cardiology) TIA (cardiology) BACK PAIN Back pain Reason for Visit Back pain Segmental and somatic dysfunction of cervical region Segmental and somatic dysfunction of lumbar region Segmental and somatic dysfunction of pelvic region Segmental and somatic dysfunction of thoracic region Disc displacement, lumbar Back pain Segmental and somatic dysfunction of cervical region Segmental and somatic dysfunction of lumbar region Segmental and somatic dysfunction of pelvic region Segmental and somatic dysfunction of thoracic region Disc displacement, lumbar Back pain Segmental and somatic dysfunction of cervical region Segmental and somatic dysfunction of lumbar region Segmental and somatic dysfunction of pelvic region Segmental and somatic dysfunction of thoracic region Disc displacement, lumbar Back pain Segmental and somatic dysfunction of cervical region Segmental and somatic dysfunction of lumbar region Segmental and somatic dysfunction of pelvic region Segmental and somatic dysfunction of thoracic region Disc displacement, lumbar Arm paresthesia, left Facial paresthesia Left leg paresthesias Back pain Segmental and somatic dysfunction of cervical region Segmental and somatic dysfunction of lumbar region Segmental and somatic dysfunction of pelvic region Segmental and somatic dysfunction of thoracic region Disc displacement, lumbar Back pain Segmental and somatic dysfunction of cervical region Segmental and somatic dysfunction of lumbar region Segmental and somatic dysfunction of pelvic region Segmental and somatic dysfunction of thoracic region Disc displacement, lumbar Chief Complaint LUMBAR DISC/ DN/ RX HERE BACK PAIN LUMBAR DISC/ DN/ RX HERE BACK PAIN TIA TIA (cardiology) TIA (cardiology) BACK PAIN Back pain ear Reason for Visit Back pain Segmental and somatic dysfunction of cervical region Segmental and somatic dysfunction of lumbar region Segmental and somatic dysfunction of pelvic region Segmental and somatic dysfunction of thoracic region Disc displacement, lumbar Back pain Segmental and somatic dysfunction of cervical region Segmental and somatic dysfunction of lumbar region Segmental and somatic dysfunction of pelvic region Segmental and somatic dysfunction of thoracic region Disc displacement, lumbar Arm paresthesia, left Facial paresthesia Left leg paresthesias Back pain Segmental and somatic dysfunction of cervical region Segmental and somatic dysfunction of lumbar region Segmental and somatic dysfunction of pelvic region Segmental and somatic dysfunction of thoracic region Disc displacement, lumbar Back pain Segmental and somatic dysfunction of cervical region Segmental and somatic dysfunction of lumbar region Segmental and somatic dysfunction of pelvic region Segmental and somatic dysfunction of thoracic region Disc displacement, lumbar Chief Complaint BACK PAIN Back pain ear 1 Y FU Reason for Visit Back pain Segmental and somatic dysfunction of cervical region Segmental and somatic dysfunction of lumbar region Segmental and somatic dysfunction of pelvic region Segmental and somatic dysfunction of thoracic region Disc displacement, lumbar Back pain Segmental and somatic dysfunction of cervical region Segmental and somatic dysfunction of lumbar region Segmental and somatic dysfunction of pelvic region Segmental and somatic dysfunction of thoracic region Disc displacement, lumbar Obesity LETITIA (obstructive sleep apnea) Chief Complaint ear 1 Y FU hallucinations Reason for Visit Obesity LETITIA (obstructive sleep apnea) Chief Complaint Admit Date fall October 16, 2024 8:22pm Back pain October 19, 2024 8:57am dizziness November 11, 2024 5: 54am Reason for Visit Admit Date Segmental and somatic dysfunction of lum bar region October 19, 2024 8:57am Segmental and somatic dysfunction of pel jalil region October 19, 2024 8:57am Segmental and somatic dysfunction of tho racic region October 19, 2024 8:57am Disc displacement, lumbar October 19, 2024 8:57am Chief Complaint Admit Date BACK PAIN February 04, 2025 2:21 pm SHOULDER PAIN. RX HERE March 09, 2025 8:0 0am Back pain March 09, 2025 9:17am Reason for Visit Admit Date Segmental and somatic dysfunction of cer vical region February 04, 2025 2:21pm Segmental and somatic dysfunction of lum bar region February 04, 2025 2:21pm Segmental and somatic dysfunction of pel jalil region February 04, 2025 2:21pm Segmental and somatic dysfunction of tho racic region February 04, 2025 2:21pm Disc displacement, lumbar February 04 2:21pm Segmental and somatic dysfunction of cer vical region March 09, 2025 9:17am Segmental and somatic dysfunction of lum bar region March 09, 2025 9:17am Segmental and somatic dysfunction of pel jalil region March 09, 2025 9:17am Segmental and somatic dysfunction of tho racic region March 09, 2025 9:17am Disc displacement, lumbar March 09, 2025 9:17am Chief Complaint Admit Date BACK PAIN February 04, 2025 2:21 pm SHOULDER PAIN. RX HERE March 09, 2025 8:0 0am Back pain March 09, 2025 9:17am LEFT SHOULDER March 22, 2025 8:58a m Reason for Visit Admit Date Segmental and somatic dysfunction of cer vical region February 04, 2025 2:21pm Segmental and somatic dysfunction of lum bar region February 04, 2025 2:21pm Segmental and somatic dysfunction of pel jalil region February 04, 2025 2:21pm Segmental and somatic dysfunction of tho racic region February 04, 2025 2:21pm Disc displacement, lumbar February 04 2:21pm Segmental and somatic dysfunction of cer vical region March 09, 2025 9:17am Segmental and somatic dysfunction of lum bar region March 09, 2025 9:17am Segmental and somatic dysfunction of pel jalil region March 09, 2025 9:17am Segmental and somatic dysfunction of tho racic region March 09, 2025 9:17am Disc displacement, lumbar March 09, 2025 9:17am Left shoulder pain March 22, 2025 8:58a m Chief Complaint Admit Date BACK PAIN February 04, 2025 2:21 pm SHOULDER PAIN. RX HERE March 09, 2025 8:0 0am Back pain March 09, 2025 9:17am LEFT SHOULDER March 22, 2025 8:58a m BACK PAIN March 22, 2025 9:33a m Reason for Visit Admit Date Segmental and somatic dysfunction of cer vical region February 04, 2025 2:21pm Segmental and somatic dysfunction of lum bar region February 04, 2025 2:21pm Segmental and somatic dysfunction of pel jalil region February 04, 2025 2:21pm Segmental and somatic dysfunction of tho racic region February 04, 2025 2:21pm Disc displacement, lumbar February 04 2:21pm Segmental and somatic dysfunction of cer vical region March 09, 2025 9:17am Segmental and somatic dysfunction of lum bar region March 09, 2025 9:17am Segmental and somatic dysfunction of pel jalil region March 09, 2025 9:17am Segmental and somatic dysfunction of tho racic region March 09, 2025 9:17am Disc displacement, lumbar March 09, 2025 9:17am Left shoulder pain March 22, 2025 8:58a m Back pain March 22, 2025 9:33a m Segmental and somatic dysfunction of cer vical region March 22, 2025 9:33am Segmental and somatic dysfunction of lum bar region March 22, 2025 9:33am Segmental and somatic dysfunction of pel jalil region March 22, 2025 9:33am Segmental and somatic dysfunction of tho racic region March 22, 2025 9:33am Chief Complaint Admit Date BACK PAIN February 04, 2025 2:21 pm SHOULDER PAIN. RX HERE March 09, 2025 8:0 0am Back pain March 09, 2025 9:17am LEFT SHOULDER March 22, 2025 8:58a m BACK PAIN March 22, 2025 9:33a m BACK PAIN April 05, 2025 10:22 am Reason for Visit Admit Date Segmental and somatic dysfunction of cer vical region February 04, 2025 2:21pm Segmental and somatic dysfunction of lum bar region February 04, 2025 2:21pm Segmental and somatic dysfunction of pel jalil region February 04, 2025 2:21pm Segmental and somatic dysfunction of tho racic region February 04, 2025 2:21pm Disc displacement, lumbar February 04 2:21pm Segmental and somatic dysfunction of cer vical region March 09, 2025 9:17am Segmental and somatic dysfunction of lum bar region March 09, 2025 9:17am Segmental and somatic dysfunction of pel jalil region March 09, 2025 9:17am Segmental and somatic dysfunction of tho racic region March 09, 2025 9:17am Disc displacement, lumbar March 09, 2025 9:17am Left shoulder pain March 22, 2025 8:58a m Back pain March 22, 2025 9:33a m Segmental and somatic dysfunction of cer vical region March 22, 2025 9:33am Segmental and somatic dysfunction of lum bar region March 22, 2025 9:33am Segmental and somatic dysfunction of pel jalil region March 22, 2025 9:33am Segmental and somatic dysfunction of tho racic region March 22, 2025 9:33am Segmental and somatic dysfunction of cer vical region April 05, 2025 10:22am Segmental and somatic dysfunction of lum bar region April 05, 2025 10:22am Segmental and somatic dysfunction of pel jalil region April 05, 2025 10:22am Segmental and somatic dysfunction of tho racic region April 05, 2025 10:22am Disc displacement, lumbar April 05, 2025 10:22am Radiculopathy of lumbosacral region April 05, 2025 10:22am Summary Purpose Additional Source Comments Source Comments (unrecognize d section and content) In the event this informatio n is protected by the [place] Confidentiality of Alcohol and Drug Abuse Patient Records regulations: The Federal rules restrict any use of the information to criminally investigate or prosecute any alcohol or drug abuse patient.[facility] the event this information is protected by the Federal Confidentiality of Alcohol and Drug Abuse Patient Records regulations: The Federal rules restrict any use of the information to criminally investigate or prosecute any alcohol or drug abuse patient.[facility] CenterIn the event this information is protected by the Federal Confidentiality of Alcohol and Drug Abuse Patient Records regulations: The Federal rules restrict any use of the information to criminally investigate or prosecute any alcohol or drug abuse patient.[facility] CenterIn the event this information is protected by the Federal Confidentiality of Alcohol and Drug Abuse Patient Records regulations: The Federal rules restrict any use of the information to criminally investigate or prosecute any alcohol or drug abuse patient.[facility] CenterIn the event this information is protected by the Federal Confidentiality of Alcohol and Drug Abuse Patient Records regulations: The Federal rules restrict any use of the information to criminally investigate or prosecute any alcohol or drug abuse patient.[facility] CenterIn the event this information is protected by the Federal Confidentiality of Alcohol and Drug Abuse Patient Records regulations: The Federal rules restrict any use of the information to criminally investigate or prosecute any alcohol or drug abuse patient.[facility] CenterIn the event this information is protected by the Federal Confidentiality of Alcohol and Drug Abuse Patient Records regulations: The Federal rules restrict any use of the information to criminally investigate or prosecute any alcohol or drug abuse patient.[facility] CenterIn the event this information is protected by the Federal Confidentiality of Alcohol and Drug Abuse Patient Records regulations: The Federal rules restrict any use of the information to criminally investigate or prosecute any alcohol or drug abuse patient.[facility] CenterIn the event this information is protected by the Federal Confidentiality of Alcohol and Drug Abuse Patient Records regulations: The Federal rules restrict any use of the information to criminally investigate or prosecute any alcohol or drug abuse patient.[facility] CenterIn the event this information is protected by the Federal Confidentiality of Alcohol and Drug Abuse Patient Records regulations: The Federal rules restrict any use of the information to criminally investigate or prosecute any alcohol or drug abuse patient.[facility] CenterIn the event this information is protected by the Federal Confidentiality of Alcohol and Drug Abuse Patient Records regulations: The Federal rules restrict any use of the information to criminally investigate or prosecute any alcohol or drug abuse patient.[facility] CenterIn the event this information is protected by the Federal Confidentiality of Alcohol and Drug Abuse Patient Records regulations: The Federal rules restrict any use of the information to criminally investigate or prosecute any alcohol or drug abuse patient.[facility] CenterIn the event this information is protected by the Federal Confidentiality of Alcohol and Drug Abuse Patient Records regulations: The Federal rules restrict any use of the information to criminally investigate or prosecute any alcohol or drug abuse patient.[facility] CenterIn the event this information is protected by the Federal Confidentiality of Alcohol and Drug Abuse Patient Records regulations: The Federal rules restrict any use of the information to criminally investigate or prosecute any alcohol or drug abuse patient.[facility] CenterIn the event this information is protected by the Federal Confidentiality of Alcohol and Drug Abuse Patient Records regulations: The Federal rules restrict any use of the information to criminally investigate or prosecute any alcohol or drug abuse patient.[facility] CenterIn the event this information is protected by the Federal Confidentiality of Alcohol and Drug Abuse Patient Records regulations: The Federal rules restrict any use of the information to criminally investigate or prosecute any alcohol or drug abuse patient.[facility] CenterIn the event this information is protected by the Federal Confidentiality of Alcohol and Drug Abuse Patient Records regulations: The Federal rules restrict any use of the information to criminally investigate or prosecute any alcohol or drug abuse patient.[facility] CenterIn the event this information is protected by the Federal Confidentiality of Alcohol and Drug Abuse Patient Records regulations: The Federal rules restrict any use of the information to criminally investigate or prosecute any alcohol or drug abuse patient.[facility] CenterIn the event this information is protected by the Federal Confidentiality of Alcohol and Drug Abuse Patient Records regulations: The Federal rules restrict any use of the information to criminally investigate or prosecute any alcohol or drug abuse patient.[facility] CenterIn the event this information is protected by the Federal Confidentiality of Alcohol and Drug Abuse Patient Records regulations: The Federal rules restrict any use of the information to criminally investigate or prosecute any alcohol or drug abuse patient.[facility] CenterIn the event this information is protected by the Federal Confidentiality of Alcohol and Drug Abuse Patient Records regulations: The Federal rules restrict any use of the information to criminally investigate or prosecute any alcohol or drug abuse patient.[facility] CenterIn the event this information is protected by the Federal Confidentiality of Alcohol and Drug Abuse Patient Records regulations: The Federal rules restrict any use of the information to criminally investigate or prosecute any alcohol or drug abuse patient.[facility] CenterIn the event this information is protected by the Federal Confidentiality of Alcohol and Drug Abuse Patient Records regulations: The Federal rules restrict any use of the information to criminally investigate or prosecute any alcohol or drug abuse patient.[facility] CenterIn the event this information is protected by the Federal Confidentiality of Alcohol and Drug Abuse Patient Records regulations: The Federal rules restrict any use of the information to criminally investigate or prosecute any alcohol or drug abuse patient.[facility] CenterIn the event this information is protected by the Federal Confidentiality of Alcohol and Drug Abuse Patient Records regulations: The Federal rules restrict any use of the information to criminally investigate or prosecute any alcohol or drug abuse patient.[facility] CenterIn the event this information is protected by the Federal Confidentiality of Alcohol and Drug Abuse Patient Records regulations: The Federal rules restrict any use of the information to criminally investigate or prosecute any alcohol or drug abuse patient.[facility] CenterIn the event this information is protected by the Federal Confidentiality of Alcohol and Drug Abuse Patient Records regulations: The Federal rules restrict any use of the information to criminally investigate or prosecute any alcohol or drug abuse patient.[facility] CenterIn the event this information is protected by the Federal Confidentiality of Alcohol and Drug Abuse Patient Records regulations: The Federal rules restrict any use of the information to criminally investigate or prosecute any alcohol or drug abuse patient.[facility] CenterIn the event this information is protected by the Federal Confidentiality of Alcohol and Drug Abuse Patient Records regulations: The Federal rules restrict any use of the information to criminally investigate or prosecute any alcohol or drug abuse patient.[facility] CenterIn the event this information is protected by the Federal Confidentiality of Alcohol and Drug Abuse Patient Records regulations: The Federal rules restrict any use of the information to criminally investigate or prosecute any alcohol or drug abuse patient.[facility] CenterIn the event this information is protected by the Federal Confidentiality of Alcohol and Drug Abuse Patient Records regulations: The Federal rules restrict any use of the information to criminally investigate or prosecute any alcohol or drug abuse patient.[facility] CenterIn the event this information is protected by the Federal Confidentiality of Alcohol and Drug Abuse Patient Records regulations: The Federal rules restrict any use of the information to criminally investigate or prosecute any alcohol or drug abuse patient.[facility] CenterIn the event this information is protected by the Federal Confidentiality of Alcohol and Drug Abuse Patient Records regulations: The Federal rules restrict any use of the information to criminally investigate or prosecute any alcohol or drug abuse patient.[facility] CenterIn the event this information is protected by the Federal Confidentiality of Alcohol and Drug Abuse Patient Records regulations: The Federal rules restrict any use of the information to criminally investigate or prosecute any alcohol or drug abuse patient.[facility] CenterIn the event this information is protected by the Federal Confidentiality of Alcohol and Drug Abuse Patient Records regulations: The Federal rules restrict any use of the information to criminally investigate or prosecute any alcohol or drug abuse patient.[facility] CenterIn the event this information is protected by the Federal Confidentiality of Alcohol and Drug Abuse Patient Records regulations: The Federal rules restrict any use of the information to criminally investigate or prosecute any alcohol or drug abuse patient.[facility] CenterIn the event this information is protected by the Federal Confidentiality of Alcohol and Drug Abuse Patient Records regulations: The Federal rules restrict any use of the information to criminally investigate or prosecute any alcohol or drug abuse patient.[facility] CenterIn the event this information is protected by the Federal Confidentiality of Alcohol and Drug Abuse Patient Records regulations: The Federal rules restrict any use of the information to criminally investigate or prosecute any alcohol or drug abuse patient.[facility] CenterIn the event this information is protected by the Federal Confidentiality of Alcohol and Drug Abuse Patient Records regulations: The Federal rules restrict any use of the information to criminally investigate or prosecute any alcohol or drug abuse patient.[facility] CenterIn the event this information is protected by the Federal Confidentiality of Alcohol and Drug Abuse Patient Records regulations: The Federal rules restrict any use of the information to criminally investigate or prosecute any alcohol or drug abuse patient.[facility] CenterIn the event this information is protected by the Federal Confidentiality of Alcohol and Drug Abuse Patient Records regulations: The Federal rules restrict any use of the information to criminally investigate or prosecute any alcohol or drug abuse patient.[facility] CenterIn the event this information is protected by the Federal Confidentiality of Alcohol and Drug Abuse Patient Records regulations: The Federal rules restrict any use of the information to criminally investigate or prosecute any alcohol or drug abuse patient.[facility] CenterIn the event this information is protected by the Federal Confidentiality of Alcohol and Drug Abuse Patient Records regulations: The Federal rules restrict any use of the information to criminally investigate or prosecute any alcohol or drug abuse patient.[facility] CenterIn the event this information is protected by the Federal Confidentiality of Alcohol and Drug Abuse Patient Records regulations: The Federal rules restrict any use of the information to criminally investigate or prosecute any alcohol or drug abuse patient.[facility] CenterIn the event this information is protected by the Federal Confidentiality of Alcohol and Drug Abuse Patient Records regulations: The Federal rules restrict any use of the information to criminally investigate or prosecute any alcohol or drug abuse patient.[facility] CenterIn the event this information is protected by the Federal Confidentiality of Alcohol and Drug Abuse Patient Records regulations: The Federal rules restrict any use of the information to criminally investigate or prosecute any alcohol or drug abuse patient.[facility] CenterIn the event this information is protected by the Federal Confidentiality of Alcohol and Drug Abuse Patient Records regulations: The Federal rules restrict any use of the information to criminally investigate or prosecute any alcohol or drug abuse patient.[facility] CenterIn the event this information is protected by the Federal Confidentiality of Alcohol and Drug Abuse Patient Records regulations: The Federal rules restrict any use of the information to criminally investigate or prosecute any alcohol or drug abuse patient.[facility] CenterIn the event this information is protected by the Federal Confidentiality of Alcohol and Drug Abuse Patient Records regulations: The Federal rules restrict any use of the information to criminally investigate or prosecute any alcohol or drug abuse patient.[facility] CenterIn the event this information is protected by the Federal Confidentiality of Alcohol and Drug Abuse Patient Records regulations: The Federal rules restrict any use of the information to criminally investigate or prosecute any alcohol or drug abuse patient.[facility] CenterIn the event this information is protected by the Federal Confidentiality of Alcohol and Drug Abuse Patient Records regulations: The Federal rules restrict any use of the information to criminally investigate or prosecute any alcohol or drug abuse patient.[facility] CenterIn the event this information is protected by the Federal Confidentiality of Alcohol and Drug Abuse Patient Records regulations: The Federal rules restrict any use of the information to criminally investigate or prosecute any alcohol or drug abuse patient.[facility] CenterIn the event this information is protected by the Federal Confidentiality of Alcohol and Drug Abuse Patient Records regulations: The Federal rules restrict any use of the information to criminally investigate or prosecute any alcohol or drug abuse patient.[facility] CenterIn the event this information is protected by the Federal Confidentiality of Alcohol and Drug Abuse Patient Records regulations: The Federal rules restrict any use of the information to criminally investigate or prosecute any alcohol or drug abuse patient.[facility] CenterIn the event this information is protected by the Federal Confidentiality of Alcohol and Drug Abuse Patient Records regulations: The Federal rules restrict any use of the information to criminally investigate or prosecute any alcohol or drug abuse patient.[facility] CenterIn the event this information is protected by the Federal Confidentiality of Alcohol and Drug Abuse Patient Records regulations: The Federal rules restrict any use of the information to criminally investigate or prosecute any alcohol or drug abuse patient.[facility] CenterIn the event this information is protected by the Federal Confidentiality of Alcohol and Drug Abuse Patient Records regulations: The Federal rules restrict any use of the information to criminally investigate or prosecute any alcohol or drug abuse patient.[facility] CenterIn the event this information is protected by the Federal Confidentiality of Alcohol and Drug Abuse Patient Records regulations: The Federal rules restrict any use of the information to criminally investigate or prosecute any alcohol or drug abuse patient.[facility] CenterIn the event this information is protected by the Federal Confidentiality of Alcohol and Drug Abuse Patient Records regulations: The Federal rules restrict any use of the information to criminally investigate or prosecute any alcohol or drug abuse patient.[facility] CenterIn the event this information is protected by the Federal Confidentiality of Alcohol and Drug Abuse Patient Records regulations: The Federal rules restrict any use of the information to criminally investigate or prosecute any alcohol or drug abuse patient.[facility] CenterIn the event this information is protected by the Federal Confidentiality of Alcohol and Drug Abuse Patient Records regulations: The Federal rules restrict any use of the information to criminally investigate or prosecute any alcohol or drug abuse patient.[facility] CenterIn the event this information is protected by the Federal Confidentiality of Alcohol and Drug Abuse Patient Records regulations: The Federal rules restrict any use of the information to criminally investigate or prosecute any alcohol or drug abuse patient.[facility] CenterIn the event this information is protected by the Federal Confidentiality of Alcohol and Drug Abuse Patient Records regulations: The Federal rules restrict any use of the information to criminally investigate or prosecute any alcohol or drug abuse patient.[facility] CenterIn the event this information is protected by the Federal Confidentiality of Alcohol and Drug Abuse Patient Records regulations: The Federal rules restrict any use of the information to criminally investigate or prosecute any alcohol or drug abuse patient.[facility] CenterIn the event this information is protected by the Federal Confidentiality of Alcohol and Drug Abuse Patient Records regulations: The Federal rules restrict any use of the information to criminally investigate or prosecute any alcohol or drug abuse patient.[facility] CenterIn the event this information is protected by the Federal Confidentiality of Alcohol and Drug Abuse Patient Records regulations: The Federal rules restrict any use of the information to criminally investigate or prosecute any alcohol or drug abuse patient.[facility] CenterIn the event this information is protected by the Federal Confidentiality of Alcohol and Drug Abuse Patient Records regulations: The Federal rules restrict any use of the information to criminally investigate or prosecute any alcohol or drug abuse patient.[facility] CenterIn the event this information is protected by the Federal Confidentiality of Alcohol and Drug Abuse Patient Records regulations: The Federal rules restrict any use of the information to criminally investigate or prosecute any alcohol or drug abuse patient.[facility] CenterIn the event this information is protected by the Federal Confidentiality of Alcohol and Drug Abuse Patient Records regulations: The Federal rules restrict any use of the information to criminally investigate or prosecute any alcohol or drug abuse patient.[facility] CenterIn the event this information is protected by the Federal Confidentiality of Alcohol and Drug Abuse Patient Records regulations: The Federal rules restrict any use of the information to criminally investigate or prosecute any alcohol or drug abuse patient.[facility] CenterIn the event this information is protected by the Federal Confidentiality of Alcohol and Drug Abuse Patient Records regulations: The Federal rules restrict any use of the information to criminally investigate or prosecute any alcohol or drug abuse patient.[facility] CenterIn the event this information is protected by the Federal Confidentiality of Alcohol and Drug Abuse Patient Records regulations: The Federal rules restrict any use of the information to criminally investigate or prosecute any alcohol or drug abuse patient.[facility] CenterIn the event this information is protected by the Federal Confidentiality of Alcohol and Drug Abuse Patient Records regulations: The Federal rules restrict any use of the information to criminally investigate or prosecute any alcohol or drug abuse patient.[facility] CenterIn the event this information is protected by the Federal Confidentiality of Alcohol and Drug Abuse Patient Records regulations: The Federal rules restrict any use of the information to criminally investigate or prosecute any alcohol or drug abuse patient.[facility] CenterIn the event this information is protected by the Federal Confidentiality of Alcohol and Drug Abuse Patient Records regulations: The Federal rules restrict any use of the information to criminally investigate or prosecute any alcohol or drug abuse patient.[facility]In the event this information is protected by the Federal Confidentiality of Alcohol and Drug Abuse Patient Records regulations: The Federal rules restrict any use of the information to criminally investigate or prosecute any alcohol or drug abuse patient.[facility]In the event this information is protected by the Federal Confidentiality of Alcohol and Drug Abuse Patient Records regulations: The Federal rules restrict any use of the information to criminally investigate or prosecute any alcohol or drug abuse patient.[facility]In the event this information is protected by the Federal Confidentiality of Alcohol and Drug Abuse Patient Records regulations: The Federal rules restrict any use of the information to criminally investigate or prosecute any alcohol or drug abuse patient.[facility]In the event this information is protected by the Federal Confidentiality of Alcohol and Drug Abuse Patient Records regulations: The Federal rules restrict any use of the information to criminally investigate or prosecute any alcohol or drug abuse patient.[facility]In the event this information is protected by the Federal Confidentiality of Alcohol and Drug Abuse Patient Records regulations: The Federal rules restrict any use of the information to criminally investigate or prosecute any alcohol or drug abuse patient.[facility]In the event this information is protected by the Federal Confidentiality of Alcohol and Drug Abuse Patient Records regulations: The Federal rules restrict any use of the information to criminally investigate or prosecute any alcohol or drug abuse patient.[facility]In the event this information is protected by the Federal Confidentiality of Alcohol and Drug Abuse Patient Records regulations: The Federal rules restrict any use of the information to criminally investigate or prosecute any alcohol or drug abuse patient.[facility]In the event this information is protected by the Federal Confidentiality of Alcohol and Drug Abuse Patient Records regulations: The Federal rules restrict any use of the information to criminally investigate or prosecute any alcohol or drug abuse patient.[facility]In the event this information is protected by the Federal Confidentiality of Alcohol and Drug Abuse Patient Records regulations: The Federal rules restrict any use of the information to criminally investigate or prosecute any alcohol or drug abuse patient.[facility]In the event this information is protected by the Federal Confidentiality of Alcohol and Drug Abuse Patient Records regulations: The Federal rules restrict any use of the information to criminally investigate or prosecute any alcohol or drug abuse patient.[facility]In the event this information is protected by the Federal Confidentiality of Alcohol and Drug Abuse Patient Records regulations: The Federal rules restrict any use of the information to criminally investigate or prosecute any alcohol or drug abuse patient.[facility]In the event this information is protected by the Federal Confidentiality of Alcohol and Drug Abuse Patient Records regulations: The Federal rules restrict any use of the information to criminally investigate or prosecute any alcohol or drug abuse patient.[facility]In the event this information is protected by the Federal Confidentiality of Alcohol and Drug Abuse Patient Records regulations: The Federal rules restrict any use of the information to criminally investigate or prosecute any alcohol or drug abuse patient.[facility]In the event this information is protected by the Federal Confidentiality of Alcohol and Drug Abuse Patient Records regulations: The Federal rules restrict any use of the information to criminally investigate or prosecute any alcohol or drug abuse patient.[facility]In the event this information is protected by the Federal Confidentiality of Alcohol and Drug Abuse Patient Records regulations: The Federal rules restrict any use of the information to criminally investigate or prosecute any alcohol or drug abuse patient.[facility]In the event this information is protected by the Federal Confidentiality of Alcohol and Drug Abuse Patient Records regulations: The Federal rules restrict any use of the information to criminally investigate or prosecute any alcohol or drug abuse patient.[facility]In the event this information is protected by the Federal Confidentiality of Alcohol and Drug Abuse Patient Records regulations: The Federal rules restrict any use of the information to criminally investigate or prosecute any alcohol or drug abuse patient.[facility]In the event this information is protected by the Federal Confidentiality of Alcohol and Drug Abuse Patient Records regulations: The Federal rules restrict any use of the information to criminally investigate or prosecute any alcohol or drug abuse patient.[facility]In the event this information is protected by the Federal Confidentiality of Alcohol and Drug Abuse Patient Records regulations: The Federal rules restrict any use of the information to criminally investigate or prosecute any alcohol or drug abuse patient.[facility]In the event this information is protected by the Federal Confidentiality of Alcohol and Drug Abuse Patient Records regulations: The Federal rules restrict any use of the information to criminally investigate or prosecute any alcohol or drug abuse patient.[facility]In the event this information is protected by the Federal Confidentiality of Alcohol and Drug Abuse Patient Records regulations: The Federal rules restrict any use of the information to criminally investigate or prosecute any alcohol or drug abuse patient.[facility]In the event this information is protected by the Federal Confidentiality of Alcohol and Drug Abuse Patient Records regulations: The Federal rules restrict any use of the information to criminally investigate or prosecute any alcohol or drug abuse patient.[facility]In the event this information is protected by the Federal Confidentiality of Alcohol and Drug Abuse Patient Records regulations: The Federal rules restrict any use of the information to criminally investigate or prosecute any alcohol or drug abuse patient.[facility]In the event this information is protected by the Federal Confidentiality of Alcohol and Drug Abuse Patient Records regulations: The Federal rules restrict any use of the information to criminally investigate or prosecute any alcohol or drug abuse patient.[facility]In the event this information is protected by the Federal Confidentiality of Alcohol and Drug Abuse Patient Records regulations: The Federal rules restrict any use of the information to criminally investigate or prosecute any alcohol or drug abuse patient.[facility]In the event this information is protected by the Federal Confidentiality of Alcohol and Drug Abuse Patient Records regulations: The Federal rules restrict any use of the information to criminally investigate or prosecute any alcohol or drug abuse patient.[facility]In the event this information is protected by the Federal Confidentiality of Alcohol and Drug Abuse Patient Records regulations: The Federal rules restrict any use of the information to criminally investigate or prosecute any alcohol or drug abuse patient.[facility]In the event this information is protected by the Federal Confidentiality of Alcohol and Drug Abuse Patient Records regulations: The Federal rules restrict any use of the information to criminally investigate or prosecute any alcohol or drug abuse patient.[facility]In the event this information is protected by the Federal Confidentiality of Alcohol and Drug Abuse Patient Records regulations: The Federal rules restrict any use of the information to criminally investigate or prosecute any alcohol or drug abuse patient.[facility]In the event this information is protected by the Federal Confidentiality of Alcohol and Drug Abuse Patient Records regulations: The Federal rules restrict any use of the information to criminally investigate or prosecute any alcohol or drug abuse patient.[facility]In the event this information is protected by the Federal Confidentiality of Alcohol and Drug Abuse Patient Records regulations: The Federal rules restrict any use of the information to criminally investigate or prosecute any alcohol or drug abuse patient.[facility]In the event this information is protected by the Federal Confidentiality of Alcohol and Drug Abuse Patient Records regulations: The Federal rules restrict any use of the information to criminally investigate or prosecute any alcohol or drug abuse patient.[facility]In the event this information is protected by the Federal Confidentiality of Alcohol and Drug Abuse Patient Records regulations: The Federal rules restrict any use of the information to criminally investigate or prosecute any alcohol or drug abuse patient.[facility]In the event this information is protected by the Federal Confidentiality of Alcohol and Drug Abuse Patient Records regulations: The Federal rules restrict any use of the information to criminally investigate or prosecute any alcohol or drug abuse patient.[facility]In the event this information is protected by the Federal Confidentiality of Alcohol and Drug Abuse Patient Records regulations: The Federal rules restrict any use of the information to criminally investigate or prosecute any alcohol or drug abuse patient.[facility]In the event this information is protected by the Federal Confidentiality of Alcohol and Drug Abuse Patient Records regulations: The Federal rules restrict any use of the information to criminally investigate or prosecute any alcohol or drug abuse patient.[facility]In the event this information is protected by the Federal Confidentiality of Alcohol and Drug Abuse Patient Records regulations: The Federal rules restrict any use of the information to criminally investigate or prosecute any alcohol or drug abuse patient.[facility]In the event this information is protected by the Federal Confidentiality of Alcohol and Drug Abuse Patient Records regulations: The Federal rules restrict any use of the information to criminally investigate or prosecute any alcohol or drug abuse patient.[facility]In the event this information is protected by the Federal Confidentiality of Alcohol and Drug Abuse Patient Records regulations: The Federal rules restrict any use of the information to criminally investigate or prosecute any alcohol or drug abuse patient.[facility]In the event this information is protected by the Federal Confidentiality of Alcohol and Drug Abuse Patient Records regulations: The Federal rules restrict any use of the information to criminally investigate or prosecute any alcohol or drug abuse patient.[facility]In the event this information is protected by the Federal Confidentiality of Alcohol and Drug Abuse Patient Records regulations: The Federal rules restrict any use of the information to criminally investigate or prosecute any alcohol or drug abuse patient.[facility]In the event this information is protected by the Federal Confidentiality of Alcohol and Drug Abuse Patient Records regulations: The Federal rules restrict any use of the information to criminally investigate or prosecute any alcohol or drug abuse patient.[facility]In the event this information is protected by the Federal Confidentiality of Alcohol and Drug Abuse Patient Records regulations: The Federal rules restrict any use of the information to criminally investigate or prosecute any alcohol or drug abuse patient.[facility]In the event this information is protected by the Federal Confidentiality of Alcohol and Drug Abuse Patient Records regulations: The Federal rules restrict any use of the information to criminally investigate or prosecute any alcohol or drug abuse patient.[facility]In the event this information is protected by the Federal Confidentiality of Alcohol and Drug Abuse Patient Records regulations: The Federal rules restrict any use of the information to criminally investigate or prosecute any alcohol or drug abuse patient.[facility]In the event this information is protected by the Federal Confidentiality of Alcohol and Drug Abuse Patient Records regulations: The Federal rules restrict any use of the information to criminally investigate or prosecute any alcohol or drug abuse patient.[facility]In the event this information is protected by the Federal Confidentiality of Alcohol and Drug Abuse Patient Records regulations: The Federal rules restrict any use of the information to criminally investigate or prosecute any alcohol or drug abuse patient.[facility]In the event this information is protected by the Federal Confidentiality of Alcohol and Drug Abuse Patient Records regulations: The Federal rules restrict any use of the information to criminally investigate or prosecute any alcohol or drug abuse patient.[facility]In the event this information is protected by the Federal Confidentiality of Alcohol and Drug Abuse Patient Records regulations: The Federal rules restrict any use of the information to criminally investigate or prosecute any alcohol or drug abuse patient.[facility]In the event this information is protected by the Federal Confidentiality of Alcohol and Drug Abuse Patient Records regulations: The Federal rules restrict any use of the information to criminally investigate or prosecute any alcohol or drug abuse patient.[facility]In the event this information is protected by the Federal Confidentiality of Alcohol and Drug Abuse Patient Records regulations: The Federal rules restrict any use of the information to criminally investigate or prosecute any alcohol or drug abuse patient.[facility]In the event this information is protected by the Federal Confidentiality of Alcohol and Drug Abuse Patient Records regulations: The Federal rules restrict any use of the information to criminally investigate or prosecute any alcohol or drug abuse patient.[facility]In the event this information is protected by the Federal Confidentiality of Alcohol and Drug Abuse Patient Records regulations: The Federal rules restrict any use of the information to criminally investigate or prosecute any alcohol or drug abuse patient.[facility]In the event this information is protected by the Federal Confidentiality of Alcohol and Drug Abuse Patient Records regulations: The Federal rules restrict any use of the information to criminally investigate or prosecute any alcohol or drug abuse patient.[facility]In the event this information is protected by the Federal Confidentiality of Alcohol and Drug Abuse Patient Records regulations: The Federal rules restrict any use of the information to criminally investigate or prosecute any alcohol or drug abuse patient.[facility]In the event this information is protected by the Federal Confidentiality of Alcohol and Drug Abuse Patient Records regulations: The Federal rules restrict any use of the information to criminally investigate or prosecute any alcohol or drug abuse patient.[facility]In the event this information is protected by the Federal Confidentiality of Alcohol and Drug Abuse Patient Records regulations: The Federal rules restrict any use of the information to criminally investigate or prosecute any alcohol or drug abuse patient.[facility] CenterIn the event this information is protected by the Federal Confidentiality of Alcohol and Drug Abuse Patient Records regulations: The Federal rules restrict any use of the information to criminally investigate or prosecute any alcohol or drug abuse patient.[facility] CenterIn the event this information is protected by the Federal Confidentiality of Alcohol and Drug Abuse Patient Records regulations: The Federal rules restrict any use of the information to criminally investigate or prosecute any alcohol or drug abuse patient.[facility] CenterIn the event this information is protected by the Federal Confidentiality of Alcohol and Drug Abuse Patient Records regulations: The Federal rules restrict any use of the information to criminally investigate or prosecute any alcohol or drug abuse patient.[facility] CenterIn the event this information is protected by the Federal Confidentiality of Alcohol and Drug Abuse Patient Records regulations: The Federal rules restrict any use of the information to criminally investigate or prosecute any alcohol or drug abuse patient.[facility] CenterIn the event this information is protected by the Federal Confidentiality of Alcohol and Drug Abuse Patient Records regulations: The Federal rules restrict any use of the information to criminally investigate or prosecute any alcohol or drug abuse patient.[facility] CenterIn the event this information is protected by the Federal Confidentiality of Alcohol and Drug Abuse Patient Records regulations: The Federal rules restrict any use of the information to criminally investigate or prosecute any alcohol or drug abuse patient.[facility] CenterIn the event this information is protected by the Federal Confidentiality of Alcohol and Drug Abuse Patient Records regulations: The Federal rules restrict any use of the information to criminally investigate or prosecute any alcohol or drug abuse patient.[facility] CenterIn the event this information is protected by the Federal Confidentiality of Alcohol and Drug Abuse Patient Records regulations: The Federal rules restrict any use of the information to criminally investigate or prosecute any alcohol or drug abuse patient.[facility] CenterIn the event this information is protected by the Federal Confidentiality of Alcohol and Drug Abuse Patient Records regulations: The Federal rules restrict any use of the information to criminally investigate or prosecute any alcohol or drug abuse patient.[facility] CenterIn the event this information is protected by the Federal Confidentiality of Alcohol and Drug Abuse Patient Records regulations: The Federal rules restrict any use of the information to criminally investigate or prosecute any alcohol or drug abuse patient.[facility] CenterIn the event this information is protected by the Federal Confidentiality of Alcohol and Drug Abuse Patient Records regulations: The Federal rules restrict any use of the information to criminally investigate or prosecute any alcohol or drug abuse patient.[facility] CenterIn the event this information is protected by the Federal Confidentiality of Alcohol and Drug Abuse Patient Records regulations: The Federal rules restrict any use of the information to criminally investigate or prosecute any alcohol or drug abuse patient.[facility] CenterIn the event this information is protected by the Federal Confidentiality of Alcohol and Drug Abuse Patient Records regulations: The Federal rules restrict any use of the information to criminally investigate or prosecute any alcohol or drug abuse patient.[facility] CenterIn the event this information is protected by the Federal Confidentiality of Alcohol and Drug Abuse Patient Records regulations: The Federal rules restrict any use of the information to criminally investigate or prosecute any alcohol or drug abuse patient.[facility] CenterIn the event this information is protected by the Federal Confidentiality of Alcohol and Drug Abuse Patient Records regulations: The Federal rules restrict any use of the information to criminally investigate or prosecute any alcohol or drug abuse patient.[facility] CenterIn the event this information is protected by the Federal Confidentiality of Alcohol and Drug Abuse Patient Records regulations: The Federal rules restrict any use of the information to criminally investigate or prosecute any alcohol or drug abuse patient.[facility] CenterIn the event this information is protected by the Federal Confidentiality of Alcohol and Drug Abuse Patient Records regulations: The Federal rules restrict any use of the information to criminally investigate or prosecute any alcohol or drug abuse patient.[facility] CenterIn the event this information is protected by the Federal Confidentiality of Alcohol and Drug Abuse Patient Records regulations: The Federal rules restrict any use of the information to criminally investigate or prosecute any alcohol or drug abuse patient.[facility] CenterIn the event this information is protected by the Federal Confidentiality of Alcohol and Drug Abuse Patient Records regulations: The Federal rules restrict any use of the information to criminally investigate or prosecute any alcohol or drug abuse patient.[facility] CenterIn the event this information is protected by the Federal Confidentiality of Alcohol and Drug Abuse Patient Records regulations: The Federal rules restrict any use of the information to criminally investigate or prosecute any alcohol or drug abuse patient.[facility] CenterIn the event this information is protected by the Federal Confidentiality of Alcohol and Drug Abuse Patient Records regulations: The Federal rules restrict any use of the information to criminally investigate or prosecute any alcohol or drug abuse patient.[facility] CenterIn the event this information is protected by the Federal Confidentiality of Alcohol and Drug Abuse Patient Records regulations: The Federal rules restrict any use of the information to criminally investigate or prosecute any alcohol or drug abuse patient.[facility] CenterIn the event this information is protected by the Federal Confidentiality of Alcohol and Drug Abuse Patient Records regulations: The Federal rules restrict any use of the information to criminally investigate or prosecute any alcohol or drug abuse patient.[facility] CenterIn the event this information is protected by the Federal Confidentiality of Alcohol and Drug Abuse Patient Records regulations: The Federal rules restrict any use of the information to criminally investigate or prosecute any alcohol or drug abuse patient.[facility] CenterIn the event this information is protected by the Federal Confidentiality of Alcohol and Drug Abuse Patient Records regulations: The Federal rules restrict any use of the information to criminally investigate or prosecute any alcohol or drug abuse patient.[facility] CenterIn the event this information is protected by the Federal Confidentiality of Alcohol and Drug Abuse Patient Records regulations: The Federal rules restrict any use of the information to criminally investigate or prosecute any alcohol or drug abuse patient.[facility] CenterIn the event this information is protected by the Federal Confidentiality of Alcohol and Drug Abuse Patient Records regulations: The Federal rules restrict any use of the information to criminally investigate or prosecute any alcohol or drug abuse patient.[facility] CenterIn the event this information is protected by the Federal Confidentiality of Alcohol and Drug Abuse Patient Records regulations: The Federal rules restrict any use of the information to criminally investigate or prosecute any alcohol or drug abuse patient.[facility] CenterIn the event this information is protected by the Federal Confidentiality of Alcohol and Drug Abuse Patient Records regulations: The Federal rules restrict any use of the information to criminally investigate or prosecute any alcohol or drug abuse patient.[facility] CenterIn the event this information is protected by the Federal Confidentiality of Alcohol and Drug Abuse Patient Records regulations: The Federal rules restrict any use of the information to criminally investigate or prosecute any alcohol or drug abuse patient.[facility] CenterIn the event this information is protected by the Federal Confidentiality of Alcohol and Drug Abuse Patient Records regulations: The Federal rules restrict any use of the information to criminally investigate or prosecute any alcohol or drug abuse patient.[facility] CenterIn the event this information is protected by the Federal Confidentiality of Alcohol and Drug Abuse Patient Records regulations: The Federal rules restrict any use of the information to criminally investigate or prosecute any alcohol or drug abuse patient.[facility] CenterIn the event this information is protected by the Federal Confidentiality of Alcohol and Drug Abuse Patient Records regulations: The Federal rules restrict any use of the information to criminally investigate or prosecute any alcohol or drug abuse patient.[facility] CenterIn the event this information is protected by the Federal Confidentiality of Alcohol and Drug Abuse Patient Records regulations: The Federal rules restrict any use of the information to criminally investigate or prosecute any alcohol or drug abuse patient.[facility] CenterIn the event this information is protected by the Federal Confidentiality of Alcohol and Drug Abuse Patient Records regulations: The Federal rules restrict any use of the information to criminally investigate or prosecute any alcohol or drug abuse patient.[facility] CenterIn the event this information is protected by the Federal Confidentiality of Alcohol and Drug Abuse Patient Records regulations: The Federal rules restrict any use of the information to criminally investigate or prosecute any alcohol or drug abuse patient.[facility] CenterIn the event this information is protected by the Federal Confidentiality of Alcohol and Drug Abuse Patient Records regulations: The Federal rules restrict any use of the information to criminally investigate or prosecute any alcohol or drug abuse patient.[facility] CenterIn the event this information is protected by the Federal Confidentiality of Alcohol and Drug Abuse Patient Records regulations: The Federal rules restrict any use of the information to criminally investigate or prosecute any alcohol or drug abuse patient.[facility] CenterIn the event this information is protected by the Federal Confidentiality of Alcohol and Drug Abuse Patient Records regulations: The Federal rules restrict any use of the information to criminally investigate or prosecute any alcohol or drug abuse patient.[facility] CenterIn the event this information is protected by the Federal Confidentiality of Alcohol and Drug Abuse Patient Records regulations: The Federal rules restrict any use of the information to criminally investigate or prosecute any alcohol or drug abuse patient.[facility] CenterIn the event this information is protected by the Federal Confidentiality of Alcohol and Drug Abuse Patient Records regulations: The Federal rules restrict any use of the information to criminally investigate or prosecute any alcohol or drug abuse patient.[facility] CenterIn the event this information is protected by the Federal Confidentiality of Alcohol and Drug Abuse Patient Records regulations: The Federal rules restrict any use of the information to criminally investigate or prosecute any alcohol or drug abuse patient.[facility] CenterIn the event this information is protected by the Federal Confidentiality of Alcohol and Drug Abuse Patient Records regulations: The Federal rules restrict any use of the information to criminally investigate or prosecute any alcohol or drug abuse patient.[facility] CenterIn the event this information is protected by the Federal Confidentiality of Alcohol and Drug Abuse Patient Records regulations: The Federal rules restrict any use of the information to criminally investigate or prosecute any alcohol or drug abuse patient.[facility] CenterIn the event this information is protected by the Federal Confidentiality of Alcohol and Drug Abuse Patient Records regulations: The Federal rules restrict any use of the information to criminally investigate or prosecute any alcohol or drug abuse patient.[facility] CenterIn the event this information is protected by the Federal Confidentiality of Alcohol and Drug Abuse Patient Records regulations: The Federal rules restrict any use of the information to criminally investigate or prosecute any alcohol or drug abuse patient.[facility] CenterIn the event this information is protected by the Federal Confidentiality of Alcohol and Drug Abuse Patient Records regulations: The Federal rules restrict any use of the information to criminally investigate or prosecute any alcohol or drug abuse patient.[facility] CenterIn the event this information is protected by the Federal Confidentiality of Alcohol and Drug Abuse Patient Records regulations: The Federal rules restrict any use of the information to criminally investigate or prosecute any alcohol or drug abuse patient.[facility] CenterIn the event this information is protected by the Federal Confidentiality of Alcohol and Drug Abuse Patient Records regulations: The Federal rules restrict any use of the information to criminally investigate or prosecute any alcohol or drug abuse patient.[facility] Reason for Visit (unrecogniz ed section and content) Reason Comments Follow Up Specialty Diagnoses / Procedures Referred By Petra meek Referred To Contact Family Medicine / FAMILY MEDICINE Diagnoses Follow up. Procedures 4C EST Ivette Grimes MD [address] [place] [address] Ivette Grimes MD [address] [place] [address] Referral ID Status Reason Start Date Expiration Date V isits Requested Visits Authorized [id number] Pending Review 01/31/2023 05/01/2023 1 1 Reason Comments New Patient Specialty Diagnoses / Procedures Referred By Petra meek Referred To Contact Pain Management Diagnoses Chronic left shoulder pain Procedures CONSULT TO PAIN MGT OFFICE/OUTPATIENT NEW HIGH MDM 60-74 MINUTES Ivette Grimes MD [address] [place] [address] Referral ID Status Reason Start Date Expiration Date V isits Requested Visits Authorized [id number] Closed PCP Requested Referral 01/22/2022 01/22/2023 1 1 Reason Comments Results Reason Onset Date Comments Refill Request 02/23/2022 Reason Comments ED Follow-up Reason Onset Date Comments Refill Request 03/03/2022 Reason Onset Date Comments Refill Request 03/16/2022 Reason Comments Injections Reason Onset Date Comments Refill Request 03/30/2022 Reason Onset Date Comments Refill Request 04/05/2022 Reason Comments Migraine with aura, not intractable Specialty Diagnoses / Procedures Referred By Contac t Referred To Contact Neurology Diagnoses Migraine with aura, not intractable, without status migrainosus Procedures CONSULT TO NEUROLOGY OFFICE/OUTPATIENT [facility] MDM 60-74 MINUTES Ivette Grimes MD [address] [place] [id number] Referral ID Status Reason Start Date Expiration Date V isits Requested Visits Authorized [id number] Closed PCP Requested Referral 12/25/2021 12/25/2022 1 1 Reason Onset Date Comments Refill Request 04/16/2022 Reason Comments Follow Up shoulder pain, switc h medication back to gabapentin Specialty Diagnoses / Procedures Referred By Contac t Referred To Contact Family Practice / FAMILY MEDICINE Diagnoses Follow-up exam follow up Procedures OFFICE/OUTPATIENT [facility] MDM 40-54 MIN [facility] [place]ICE VISIT Ivette Grimes MD [address] [place] [address] Ivette Grimes MD [address] [place] [id number] Referral ID Status Reason Start Date Expiration Date Visits Re quested Visits Authorized [id number] Closed 04/17/2022 11/03/2022 1 1 Reason Onset Date Comments Refill Request 05/03/2022 Reason Comments Procedure Specialty Diagnoses / Procedures Referred By Contac t Referred To Contact Pain Management / PAIN MANAGEMENT Diagnoses Neuralgia and neuritis, unspecified Adhesive capsulitis of left shoulder ultrasound guided left suprascapular nerve blockade (no steroids) Procedures INJECTION AA&/STRD SUPRASCAPULAR NERVE US GUIDANCE NEEDLE PLACEMENT IMG S&I PROCEDURE 20 Elle Sanchez MD [address] [facility] [address] [place] [address] Elle Sanchez MD [address] [place] [address] Referral ID Status Reason Start Date Expiration Date Visits Re quested Visits Authorized [id number] Closed 05/10/2022 06/10/2022 1 1 Reason Comments Procedure Follow Up Reason Comments Follow Up Specialty Diagnoses / Procedures Referred By Contac t Referred To Contact Pain Management / PAIN MANAGEMENT Diagnoses OV & follow up inj Procedures OFFICE/OUTPATIENT ESTABLISHED [facility] 30-39 MIN EST PATIENT Elle Sanchez MD [address] [address] Adelina Mason APRN.ELECTROTYPER HELPER [address] [place] [address] Referral ID Status Reason Start Date Expiration Date Visits Re quested Visits Authorized [id number] Closed 11/04/2021 11/03/2022 1 1 Reason Comments Appointment Reason Comments Headache follow up Specialty Diagnoses / Procedures Referred By Contac t Referred To Contact Neurology Diagnoses Migraine with aura, not intractable, without status migrainosus Procedures CONSULT TO NEUROLOGY OFFICE/OUTPATIENT [facility]3] 60-74 MINUTES Ivette Grimes MD [address] [place] [address] Reason Comments Orders Reason Onset Date Comments Refill Request 06/22/2022 Reason Onset Date Comments Refill Request 07/10/2022 Reason Comments Patient Update Injection questions Reason Comments Chronic Migraine X 6-7 years Specialty Diagnoses / Procedures Referred By Contac t Referred To Contact Diagnoses Intractable migraine without aura and without status migrainosus Procedures CONSULT TO HEADACHE CLINIC OFFICE/OUTPATIENT [facility]3] 60-74 MINUTES Tara Gillette, THOM.ELECTROTYPER HELPER [address] [place] [address] Referral ID Status Reason Start Date Expiration Date V isits Requested Visits Authorized [id number] Closed PCP Requested Referral 06/07/2022 06/07/2023 1 1 Reason Onset Date Comments Refill Request 07/23/2022 Reason Comments Medication Authorization Botox referral Reason Comments Diabetes Follow Up Shoulder-had a nerve block on shoulder that helped some and helping offered her nerve ablation. Thinking she may just do another nerve block that seems to work enough to let her work through PT. Specialty Diagnoses / Procedures Referred By Petra meek Referred To Contact Family Medicine / FAMILY MEDICINE Diagnoses Follow-up exam follow up Procedures OFFICE/OUTPATIENT ESTABLISHED HIGH MDM 40-54 MIN [facility] OFFICE VISIT Ivette Grimes MD [address] [place] [address] [place] [address] [place] [id number] Referral ID Status Reason Start Date Expiration Date V isits Requested Visits Authorized [id number] Authorized 04/17/2022 11/03/2022 99 99 Reason Comments Patient Update Reason Comments Follow Up Acute Visit Reason Comments Fatigue Specialty Diagnoses / Procedures Referred By Petra meek Referred To Contact Family Medicine / FAMILY MEDICINE Diagnoses dizzy-follow up from virtual with Dr Bianchi 09/03 Procedures 4C EST Ivette Girmes MD [address] [place] [address] [place] [address] [place] [address] Referral ID Status Reason Start Date Expiration Date Visits Re quested Visits Authorized [id number] Closed 09/04/2022 12/03/2022 1 1 Reason Onset Date Comments Refill Request 09/06/2022 Reason Comments Behavioral Health Social Work Reason Comments Medication Authorization Botox Approved Reason Onset Date Comments Refill Request 09/19/2022 Reason Comments Appointment Patient Question Reason Onset Date Comments Refill Request 10/05/2022 Reason Onset Date Comments Refill Request 10/06/2022 Reason Comments New Patient Evaluation Specialty Diagnoses / Procedures Referred By Petra meek Referred To Contact Psychiatry / ADULT PSYCHIATRY Diagnoses Routine general medical examination at a health care facility NEW PATIENT Procedures OFFICE/OUTPATIENT NEW MODERATE MDM 45-59 MINUTES VIDEO PSYC/PSYL NEW Self Grace Coronel, TRANSMITTER SUPERVISOR.ELECTROTYPER HELPER [address] [place] [address] Referral ID Status Reason Start Date Expiration Date Visits Re quested Visits Authorized [id number] Closed 11/04/2021 11/03/2022 1 1 Reason Comments Follow Up Pain (Shoulder Pain) Left Specialty Diagnoses / Procedures Referred By Petra t Referred To Contact Pain Management / PAIN MANAGEMENT Diagnoses Examination wants to discuss options since Insurance denied RFA Procedures OFFICE/OUTPATIENT ESTABLISHED MOD MDM 30-39 MIN EST PATIENT Self Adelina Mason, TRANSMITTER SUPERVISOR.ELECTROTYPER HELPER [address] [place] [address] Referral ID Status Reason Start Date Expiration Date V isits Requested Visits Authorized [id number] Closed Patient Cleared - Admin/Chairm an/Director advise to proceed 11/08/2022 02/06/2023 1 1 Reason Onset Date Comments Refill Request 11/15/2022 Reason Onset Date Comments Refill Request 11/23/2022 Reason Comments ER F/U Reason Comments Patient Question [place] appointment on 12/05/22 Reason Comments Acute Visit Reason Comments [facility] requesting records Reason Comments Follow Up Concussion, Fell on 11/24 and hit her head, was found unresponsive and was taken to ER Reason Onset Date Comments Refill Request 12/11/2022 Reason Onset Date Comments Refill Request 12/24/2022 Reason Onset Date Comments Refill Request 12/26/2022 Reason Comments Follow Up 1 week follow up Reason Onset Date Comments Refill Request 01/09/2023 Reason Comments Insurance Authorization Trulicity Reason Comments MRI'S need prior authorization with work man comp Specialty Diagnoses / Procedures Referred By Petra t Referred To Contact ADULT NEUROLOGY Diagnoses Chronic migraine without aura, intractable, without status migrainosus G43.719 Intractable chronic migraine without aura and without status migrainosus Procedures BOTULINUM TOXIN A PER 1 UNIT CHEMODERVATE FACIAL/TRIGEM/CERV MUSC MIGRAINE New referral botox 200 units every 90 days [id number] Karen Bansal, TRANSMITTER SUPERVISOR.ELECTROTYPER HELPER [address] [place] [address] Neur Adult Main [address] [place] [address] Referral ID Status Reason Start Date Expiration Date V isits Requested Visits Authorized [id number] Authorized 08/15/2022 01/30/2023 2 2 Reason Comments Follow Up Pain (Shoulder Pain) Left Reason Comments Orders Reason Onset Date Comments Refill Request 02/11/2023 Reason Onset Date Comments Refill Request 02/22/2023 Reason Comments Medication Request Reason Comments Follow Up Workers comp Reason Comments Established Patient Reason Comments Medication change requested Reason Comments Yearly Exam Specialty Diagnoses / Procedures Referred By Contac t Referred To Contact CORE DROPPER Diagnoses annual Procedures EST I ANNUAL PATIENT Self Galina Camacho MD [address] [place] [address] Referral ID Status Reason Start Date Expiration Date V isits Requested Visits Authorized [id number] Closed Patient Cleared - INN Insurance Found 11/28/2022 02/26/2023 1 1 Reason Comments Medication Authorization Botox renewal Reason Onset Date Comments Refill Request 04/04/2023 Reason Onset Date Comments Refill Request 05/07/2023 Reason Comments Botox Injection Specialty Diagnoses / Procedures Referred By Contac t Referred To Contact ADULT NEUROLOGY Diagnoses Intractable chronic migraine without aura Procedures BOTULINUM TOXIN A PER 1 UNIT CHEMODERVATE FACIAL/TRIGEM/CERV MUSC MIGRAINE Renewal botox 200 units every 90 days. Patient due on 04/22/23 Fatuma Beckford PA-C [address] [place] [address] [place] [address] Neur Adult Main [address] [place] [address] Referral ID Status Reason Start Date Expiration Date V isits Requested Visits Authorized [id number] Authorized 04/02/2023 04/02/2024 4 4 Reason Comments Pt requesting Boot Reason Comments Follow Up Reason Comments Follow Up MRI results. Reason Onset Date Comments Refill Request 06/08/2023 Reason Comments New Bone spurs Pain Bone spurs Reason Onset Date Comments Refill Request 07/05/2023 Reason Comments Forms [facility] preventative car e Reason Onset Date Comments Refill Request 09/09/2023 Reason Onset Date Comments Refill Request 09/23/2023 Reason Onset Date Comments Refill Request 10/14/2023 Reason Comments Diabetes Reason Onset Date Comments Refill Request 01/01/2024 Reason Comments Insurance Authorization Reason Onset Date Comments Refill Request 01/22/2024 Reason Onset Date Comments Refill Request 02/28/2024 Reason Comments Botox Injection Specialty Diagnoses / Procedures Referred By Contlety t Referred To Contact ADULT NEUROLOGY Diagnoses Intractable chronic migraine without aura Procedures BOTULINUM TOXIN A PER 1 UNIT CHEMODERVATE FACIAL/TRIGEM/CERV MUSC MIGRAINE Renewal botox 200 units every 90 days. Patient due on 04/22/23 Fatuma Beckford PA-C [address] [place] [address] [place] [address] Neur Adult [facility] [address] [place] [address] Referral ID Status Reason Start Date Expiration Date Visits Re quested Visits Authorized [id number] Closed 04/02/2023 04/02/2024 4 4 Reason Comments Insurance Authorization Botox Reason Onset Date Comments Refill Request 04/14/2024 Reason Onset Date Comments Refill Request 04/19/2024 Reason Onset Date Comments Refill Request 04/20/2024 Reason Comments medication not on current medication lis t Reason Onset Date Comments Refill Request 05/12/2024 Reason Comments Insurance Authorization Nurtec Reason Onset Date Comments Refill Request 06/27/2024 Reason Comments Cough Reason Comments Patient Question Reason Onset Date Comments Refill Request 07/24/2024 Reason Comments Physical Reason Comments Insurance Authorization Ozempic Reason Onset Date Comments Refill Request 08/10/2024 Specialty Diagnoses / Procedures Referred By Petra t Referred To Contact ADULT NEUROLOGY Diagnoses Chronic migraine without aura, intractable, without status migrainosus Procedures BOTULINUM TOXIN A PER 1 UNIT CHEMODERVATE FACIAL/TRIGEM/CERV MUSC MIGRAINE Fatuma Beckford PA-C [address] [facility] [place] [address] [address] Brandy [address] [place] [address] Referral ID Status Reason Start Date Expiration Date V isits Requested Visits Authorized [id number] Authorized 07/01/2024 11/03/2024 99 99 Reason Onset Date Comments Refill Request 10/26/2024 Reason Onset Date Comments Refill Request 11/23/2024 Reason Onset Date Comments Refill Request 11/25/2024 Reason Comments Acute Visit cough, congestion x 4 weeks Reason Comments Results Labs/Chest xray Reason Onset Date Comments Refill Request 12/24/2024 Reason Comments Numbness Left arm-Feels comin g from her shoulder. Has a spot that if she touches can make her arm go numb. 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 Relationship Specialty Start Date End Date Ivette Grimes MD [address] [place] [address] PCP - General Family Practice 11/21/13 Jagdish [facility] [address] [facility] [place] [address] Pharmacist Pharmacy 05/19/20 Cake Press Operator Helper Relationship Specialty Start Date End Date Ivette Grimes MD [address] [place] [address] PCP - General Family Practice 11/21/13 Jagdish CarballoSS[facility] [address] [facility] [place] [address] Pharmacist Pharmacy 05/19/20 Cake Press Operator Helper Relationship Specialty Start Date End Date Ivette Grimes MD [address] [place] [address] PCP - General Family Practice 11/21/13 Jagdish Carballo[facility] [address] [place] [address] Pharmacist Pharmacy 05/19/20 Cake Press Operator Helper Relationship Specialty Start Date End Date Ivette Grimes MD [address] [facility] [place] [address] PCP - General Family Practice 11/21/13 Jagdish Carballo [facility] [address] [place] [address] Pharmacist Pharmacy 05/19/20 Cake Press Operator Helper Relationship Specialty Start Date End Date Ivette Grimes MD [address] [facility] [place] [address] PCP - General Family Practice 11/21/13 Jagdish Carballo[facility] [address] [facility] [place] [address] Pharmacist Pharmacy 05/19/20 Cake Press Operator Helper Relationship Specialty Start Date End Date Ivette Grimes MD [address] [place] [address] PCP - General Family Practice 11/21/13 Jagdish Carballo[facility] [address] [facility] [place] [address] Pharmacist Pharmacy 05/19/20 Cake Press Operator Helper Relationship Specialty Start Date End Date Ivette Grimes MD [address] [place] [address] PCP - General Family Practice 11/21/13 Jagdish CarballoSS[facility] [address] [facility] [place] [address] Pharmacist Pharmacy 05/19/20 Cake Press Operator Helper Relationship Specialty Start Date End Date Ivette Grimes MD [address] [place] [address] PCP - General Family Practice 11/21/13 Jagdish Carballo[facility] [address] [place] [address] Pharmacist Pharmacy 05/19/20 Cake Press Operator Helper Relationship Specialty Start Date End Date Ivette Grimes MD [address] [place] [address] PCP - General Family Practice 11/21/13 Jagdish Carballo h [address] [facility] [place] [address] Pharmacist Pharmacy 05/19/20 Cake Press Operator Helper Relationship Specialty Start Date End Date Ivette Grimes MD [address] [facility] [place] [address] PCP - General Family Practice 11/21/13 Jagdish [facility] [address] [facility] [place] [address] Pharmacist Pharmacy 05/19/20 Cake Press Operator Helper Relationship Specialty Start Date End Date Ivette Grimes MD [address] [facility] [place] [address] PCP - General Family Practice 11/21/13 Jagdish Carballo[facility] [address] [facility] [place] [address] Pharmacist Pharmacy 05/19/20 Cake Press Operator Helper Relationship Specialty Start Date End Date Ivette Grimes MD [address] [facility] [place] [address] PCP - General Family Practice 11/21/13 [facility] [address] [facility] [place] [address] Pharmacist Pharmacy 05/19/20 Cake Press Operator Helper Relationship Specialty Start Date End Date Ivette Grimes MD [address] [facility] [place] [address] PCP - General Family Practice 11/21/13 Jagdish [facility] [address] [facility] [place] [address] Pharmacist Pharmacy 05/19/20 Cake Press Operator Helper Relationship Specialty Start Date End Date Ivette Grimes MD [address] [place] [address] PCP - General Family Practice 11/21/13 Jagdish Carballo, [facility] [address] [facility] [place] [address] Pharmacist Pharmacy 05/19/20 Cake Press Operator Helper Relationship Specialty Start Date End Date Ivette Grimes MD [address] [facility] [place] [address] PCP - General Family Practice 11/21/13 Jagdish Carballo, [facility] [address] [facility] [place] [address] Pharmacist Pharmacy 05/19/20 Cake Press Operator Helper Relationship Specialty Start Date End Date Ivette Grimes MD [address] [facility] [place] [address] PCP - General Family Practice 11/21/13 Jagdish [facility] [address] [facility] [place] [address] Pharmacist Pharmacy 05/19/20 Cake Press Operator Helper Relationship Specialty Start Date End Date Ivette Grimes MD [address] [facility] [place] [address] PCP - General Family Practice 11/21/13 [facility] [address] [facility] [place] [address] Pharmacist Pharmacy 05/19/20 Cake Press Operator Helper Relationship Specialty Start Date End Date Ivette Grimes MD [address] [facility] [place] [address] PCP - General Family Practice 11/21/13 Jagdish Carballo, [facility] [address] [facility] [place] [address] Pharmacist Pharmacy 05/19/20 Cake Press Operator Helper Relationship Specialty Start Date End Date Ivette Grimes MD [address] [place] [address] PCP - General Family Practice 11/21/13 Jagdish [facility] [address] [facility] [place] [address] Pharmacist Pharmacy 05/19/20 Cake Press Operator Helper Relationship Specialty Start Date End Date Ivette Grimes MD [address] [place] [address] PCP - General Family Medicine 11/21/13 Jagdish Carballo[facility] [address] [facility] [place] [address] Pharmacist Pharmacy 05/19/20 Cake Press Operator Helper Relationship Specialty Start Date End Date Ivette Grimes MD [address] [place] [address] PCP - General Family Medicine 11/21/13 Jagdish [facility]ballo[facility] [address] [facility] [place] [address] Pharmacist Pharmacy 05/19/20 Cake Press Operator Helper Relationship Specialty Start Date End Date Ivette Grimes MD [address] [place] [address] PCP - General Family Medicine 11/21/13 [facility] [address] [facility] [place] [address] Pharmacist Pharmacy 05/19/20 Cake Press Operator Helper Relationship Specialty Start Date End Date Ivette Grimes MD [address] [place] [address] PCP - General Family Medicine 11/21/13 Jagdish Car[facility] [address] [facility] [place] [address] Pharmacist Pharmacy 05/19/20 Cake Press Operator Helper Relationship Specialty Start Date End Date Ivette Grimes MD [address] [place] [address] PCP - General Family Medicine 11/21/13 Jagdish Carballo, [facility] [address] [place] [address] Pharmacist Pharmacy 05/19/20 Cake Press Operator Helper Relationship Specialty Start Date End Date Ivette Grimes MD [address] [place] [address] PCP - General Family Medicine 11/21/13 Jagdish Carballo, [facility] [address] [place] [address] Pharmacist Pharmacy 05/19/20 Cake Press Operator Helper Relationship Specialty Start Date End Date Ivette Grimes MD [address] [place] [address] PCP - General Family Medicine 11/21/13 Jagdish Carballo, [facility] [address] [place] [address] Pharmacist Pharmacy 05/19/20 Cake Press Operator Helper Relationship Specialty Start Date End Date Ivette Grimes MD [address] [place] [address] PCP - General Family Medicine 11/21/13 Jagdish Carballo, [facility] [address] [place] [address] Pharmacist Pharmacy 05/19/20 Cake Press Operator Helper Relationship Specialty Start Date End Date Ivette Grimes MD [address] [place] [address] PCP - General Family Medicine 11/21/13 Jagdish Carballo, [facility] [address] [place] [address] Pharmacist Pharmacy 05/19/20 Cake Press Operator Helper Relationship Specialty Start Date End Date Ivette Grimes MD [address] [place] [address] PCP - General Family Medicine 11/21/13 Jagdish Carballo, [facility] [address] [facility] [place] [address] Pharmacist Pharmacy 05/19/20 Cake Press Operator Helper Relationship Specialty Start Date End Date Ivette Grimes MD [address] [place] [address] PCP - General Family Medicine 11/21/13 Jagdish Carblalo, [facility] [address] [facility] [place] [address] Pharmacist Pharmacy 05/19/20 Cake Press Operator Helper Relationship Specialty Start Date End Date Ivette Grimes MD [address] [place] [address] PCP - General Family Medicine 11/21/13 Jagdish Carballo, [facility] [address] [facility] [place] [address] Pharmacist Pharmacy 05/19/20 Cake Press Operator Helper Relationship Specialty Start Date End Date Ivette Grimes MD [address] [place] [address] PCP - General Family Medicine 11/21/13 Jagdish Carballo, [facility] [address] [facility] [place] [address] Pharmacist Pharmacy 05/19/20 Cake Press Operator Helper Relationship Specialty Start Date End Date Ivette Grimes MD [address] [place] [address] PCP - General Family Medicine 11/21/13 Jagdish Carballo, [facility] [address] [facility] [place] [address] Pharmacist Pharmacy 05/19/20 Cake Press Operator Helper Relationship Specialty Start Date End Date Ivette Grimes MD [address] [place] [address] PCP - General Family Medicine 11/21/13 Jagdish [facility] [address] [place] [address] Pharmacist Pharmacy 05/19/20 Cake Press Operator Helper Relationship Specialty Start Date End Date Ivette Grimes MD [address] [place] [address] PCP - General Family Medicine 11/21/13 Jagdish [facility] [address] [place] [address] Pharmacist Pharmacy 05/19/20 Cake Press Operator Helper Relationship Specialty Start Date End Date Ivette Grimes MD [address] [place] [address] PCP - General Family Medicine 11/21/13 Jagdish [facility] [address] [facility] [place] [address] Pharmacist Pharmacy 05/19/20 Jemal Orozco MD [address] [place], [place] [id number] Cardiology 10/31/22 Cake Press Operator Helper Relationship Specialty Start Date End Date Ivette Grimes MD [address] [place] [address] PCP - General Family Medicine 11/21/13 Jagdish [facility] [address] [place] [address] Pharmacist Pharmacy 05/19/20 Jemal Orozco MD [address] [place] [address] Cardiology 10/31/22 Cake Press Operator Helper Relationship Specialty Start Date End Date Ivette Grimes MD [address] [place] [address] PCP - General Family Medicine 11/21/13 Jagdish [facility] [address] [place] [address] Pharmacist Pharmacy 05/19/20 Jemal Orozco MD [address] [place] [address] Cardiology 10/31/22 Cake Press Operator Helper Relationship Specialty Start Date End Date Ivette Grimes MD [address] [place] [address] PCP - General Family Medicine 11/21/13 Jagdish [facility] [address] [place] [address] Pharmacist Pharmacy 05/19/20 Jemal Orozco MD [address] [place] [address] Cardiology 10/31/22 Team Status: Active Member Role Status Dates Dr. Ivette Grimes MD Family Provider Active Dr. Ivette Grimes MD Primary Care Provider Active Team Status: Inactive Member Role Status Dates Dr. Ivette Grimes MD Primary Care Provider, Referring Provider Active Dr. Priom Ceron MD Attending Provider Active Team Status: Inactive Member Role Status Dates Dr. Ivette Grimes MD Primary Care Provider, Referring Provider Active Dr. Bibiana Rehman DC Attending Provider Active Team Status: Inactive Member Role Status Dates Dr. Ivette Grimes MD Primary Care Provider, Referring Provider Active Dr. Zhao Guerrero MD Attending Provider Active Team Status: Active Member Role Status Dates Dr. Ivette Grimes MD Primary Care Provider Active Dr. Zhao Guerrero MD Attending Provider Active Team Status: Inactive Member Role Status Dates Dr. Ivette Grimes MD Primary Care Provider Active Dr. Ivette Mejia MD Attending Provider, Referring Kentrell go Active Team Status: Active Member Role Status Dates Dr. Ivette Grimes MD Primary Care Provi don, Attending Provider, Referring Provider Active Team Status: Inactive Member Role Status Dates Dr. Ivette Grimes MD Primary Care Provider, Attending Provider Active Team Status: Inactive Member Role Status Dates Dr. Ivette Grimes MD Primary Care Provider Active Dr. Zhao Guerrero MD Attending Provider, Referring Pr ovider Active Team Status: Inactive Member Role Status Dates Dr. Ivette Grimes MD Primary Care Provi don, Attending Provider, Referring Provider Active Team Status: Inactive Member Role Status Dates Dr. Ivette Grimes MD Primary Care Provider Active Dr. Primo Ceron MD Attending Provider Active Team Status: Inactive Member Role Status Dates Dr. Ivette Grimes MD Primary Care Provider Active Dr. Woody Shabazz DO Emergency Provider Active Team Status: Inactive Member Role Status Dates Dr. Ivette Grimes MD Primary Care Provider Active Dr. Tod Callejas MD Emergency Provider Active Cake Press Operator Helper Relationship Specialty Start Date End Date Ivette Grimes MD [address] [place] [address] PCP - General Family Medicine 11/21/13 Jagdish [facility] [address] [place] [address] Pharmacist Pharmacy 05/19/20 Jemal Orozco MD [address] [place], [place] [id number] Cardiology 10/31/22 Cake Press Operator Helper Relationship Specialty Start Date End Date Ivette Grimes MD [address] [place] [address] PCP - General Family Medicine 11/21/13 MartinJagdishSS[facility] [address] [place] [address] Pharmacist Pharmacy 05/19/20 Jemal Orozco MD [address] [place], [place] [id number] Cardiology 10/31/22 Cake Press Operator Helper Relationship Specialty Start Date End Date Ivette Grimes MD [address] [place] [address] PCP - General Family Medicine 11/21/13 Jagdish Car[facility] [address] [place] [address] Pharmacist Pharmacy 05/19/20 Jemal Orozco MD [address] [place] [address] Cardiology 10/31/22 Cake Press Operator Helper Relationship Specialty Start Date End Date Ivette Grimes MD [address] [place] [address] PCP - General Family Medicine 11/21/13 Jagdish Car[facility] [address] [place] [address] Pharmacist Pharmacy 05/19/20 Jemal Orozco MD [address] [place] [address] Cardiology 10/31/22 Cake Press Operator Helper Relationship Specialty Start Date End Date Ivette Grimes MD [address] [place] [address] PCP - General Family Medicine 11/21/13 Jagdish Carballo[facility] [address] [place] [address] Pharmacist Pharmacy 05/19/20 Jemal Orozco MD [address] [place] [address] Cardiology 10/31/22 Cake Press Operator Helper Relationship Specialty Start Date End Date Ivette Grimes MD [address] [place] [address] PCP - General Family Medicine 11/21/13 Jagdish Car[facility] [address] [place] [address] Pharmacist Pharmacy 05/19/20 Jemal Orozco MD [address] [place], [place] [id number] Cardiology 10/31/22 Cake Press Operator Helper Relationship Specialty Start Date End Date Ivette Grimes MD [address] [place] [address] PCP - General Family Medicine 11/21/13 Jagdish [facility] [address] [place] [address] Pharmacist Pharmacy 05/19/20 Jemal Orozco MD [address] [place] [address] Cardiology 10/31/22 Cake Press Operator Helper Relationship Specialty Start Date End Date Ivette Grimes MD [address] [place] [address] PCP - General Family Medicine 11/21/13 Jagdish [facility] [address] [place] [address] Pharmacist Pharmacy 05/19/20 Jemal Orozco MD [address] [place] [address] Cardiology 10/31/22 Cake Press Operator Helper Relationship Specialty Start Date End Date Ivette Grimes MD [address] [place] [address] PCP - General Family Medicine 11/21/13 Jagdish [facility] [address] [place] [address] Pharmacist Pharmacy 05/19/20 Jemal Orozco MD [address] [place] [address] Cardiology 10/31/22 Cake Press Operator Helper Relationship Specialty Start Date End Date Ivette Grimes MD [address] [place] [address] PCP - General Family Medicine 11/21/13 Jagdish [facility] [address] [place] [address] Pharmacist Pharmacy 05/19/20 Jemal Orozco MD [address] [place] [address] Cardiology 10/31/22 Cake Press Operator Helper Relationship Specialty Start Date End Date Ivette Grimes MD [address] [place] [address] PCP - General Family Medicine 11/21/13 Jagdish [facility] [address] [place] [address] Pharmacist Pharmacy 05/19/20 Jemal Orozco MD [address] [place] [address] Cardiology 10/31/22 Team Status: Inactive Member Role Status Dates Dr. Ivette Grimes MD Primary Care Provider, Referring Provider Active Dr. Vin Montes MD Attending Provider Active Team Status: Inactive Member Role Status Dates Dr. Ivette Grimes MD Primary Care Provider, Referring Provider Active Jesenia Mercado NP, SLITTING MACHINE OPERATOR-C Attending Provider Active Team Status: Inactive Member Role Status Dates Dr. Ivette Grimes MD Primary Care Provider Active Dr. Woody Shabazz DO Attending Provider, Emergency P abbi Active Team Status: Inactive Member Role Status Dates Dr. Ivette Grimes MD Primary Care Provider Active Dr. Tod Callejas MD Attending Provider, Emergency Provider Active Team Status: Inactive Member Role Status Dates Dr. Ivette Grimes MD Primary Care Provider Active Dr. Sam Pearl MD Attending Provider, Emergency Provider Active Cake Press Operator Helper Relationship Specialty Start Date End Date Ivette Grimes MD [address] [place] [address] PCP - General Family Medicine 11/21/13 Jagdish [facility] [address] [place] [address] Pharmacist Pharmacy 05/19/20 Jemal Orozco MD [address] [place] [address] Cardiology 10/31/22 Cake Press Operator Helper Relationship Specialty Start Date End Date Ivette Grimes MD [address] [place] [address] PCP - General Family Medicine 11/21/13 Jagdish [facility] [address] [place] [address] Pharmacist Pharmacy 05/19/20 Jemal Orozco MD [address] [place] [address] Cardiology 10/31/22 Cake Press Operator Helper Relationship Specialty Start Date End Date Ivette Grimes MD [address] [place] [address] PCP - General Family Medicine 11/21/13 Jagdish [facility] [address] [place] [address] Pharmacist Pharmacy 05/19/20 Jemal Orozco MD [address] [place] [address] Cardiology 10/31/22 Cake Press Operator Helper Relationship Specialty Start Date End Date Ivette Grimes MD [address] [place] [address] PCP - General Family Medicine 11/21/13 Jagdish [facility] [address] [place] [address] Pharmacist Pharmacy 05/19/20 Jemal Orzoco MD [address] [place] [address] Cardiology 10/31/22 Team Status: Active Member Role Status Dates Dr. Ivette Grimes MD Primary Care Provider Active Adelina Mason SLITTING MACHINE OPERATOR, SLITTING MACHINE OPERATOR-C Attending Provider, Willian alvarez Provider Active Cake Press Operator Helper Relationship Specialty Start Date End Date Ivette Grimes MD [address] [place] [address] PCP - General Family Medicine 11/21/13 Jagdish [facility] [address] [place] [address] Pharmacist Pharmacy 05/19/20 Jemal Orozco MD [address] [place] [address] Cardiology 10/31/22 Cake Press Operator Helper Relationship Specialty Start Date End Date Ivette Grimes MD [address] [place] [address] PCP - General Family Medicine 11/21/13 Jagdish [facility] [address] [place] [address] Pharmacist Pharmacy 05/19/20 Jemal Orozco MD [address] [place] [address] Cardiology 10/31/22 Cake Press Operator Helper Relationship Specialty Start Date End Date Ivette Grimes MD [address] [place] [address] PCP - General Family Medicine 11/21/13 Jagdish [facility] [address] [place] [address] Pharmacist Pharmacy 05/19/20 Jemal Orozco MD [address] [place] [address] Cardiology 10/31/22 Cake Press Operator Helper Relationship Specialty Start Date End Date Ivette Grimes MD [address] [place] [address] PCP - General Family Medicine 11/21/13 Jagdish [facility] [address] [place] [address] Pharmacist Pharmacy 05/19/20 Jemal Orozco MD [address] [place] [address] Cardiology 10/31/22 Cake Press Operator Helper Relationship Specialty Start Date End Date Ivette Grimes MD [address] [place] [address] PCP - General Family Medicine 11/21/13 Jagdish [facility] [address] [place] [address] Pharmacist Pharmacy 05/19/20 Jemal Orozco MD [address] [place] [address] Cardiology 10/31/22 Cake Press Operator Helper Relationship Specialty Start Date End Date Ivette Grimes MD [address] [place] [address] PCP - General Family Medicine 11/21/13 [facility] [address] [place] [address] Pharmacist Pharmacy 05/19/20 Jemal Orozco MD [address] [place] [address] Cardiology 10/31/22 Team Status: Inactive Member Role Status Dates Dr. Ivette Grimes MD Primary Care Provider Active TETO RIDER Attending Provider, Referring Pro vider Active Team Status: Inactive Member Role Status Dates Dr. Ivette Grimes MD Primary Care Provider Active Dr. Sam Pearl MD Emergency Provider Active Cake Press Operator Helper Relationship Specialty Start Date End Date Ivette Grimes MD [address] [place] [address] PCP - General Family Medicine 11/21/13 [facility] [address] [place] [address] Pharmacist Pharmacy 05/19/20 Jemal Orozco MD [address] [place] [address] Cardiology 10/31/22 Cake Press Operator Helper Relationship Specialty Start Date End Date Ivette Grimes MD [address] [place] [address] PCP - General Family Medicine 11/21/13 [facility] [address] [place] [address] Pharmacist Pharmacy 05/19/20 Jemal Orozco MD [address] [place] [address] Cardiology 10/31/22 Cake Press Operator Helper Relationship Specialty Start Date End Date Ivette Grimes MD [address] [place] [address] PCP - General Family Medicine 11/21/13 [facility] [address] [place] [address] Pharmacist Pharmacy 05/19/20 Jemal Orozco MD [address] [place], [place] [id number] Cardiology 10/31/22 Cake Press Operator Helper Relationship Specialty Start Date End Date Ivette Grimes MD [address] [place] [address] PCP - General Family Medicine 11/21/13 [facility] [address] [place] [address] Pharmacist Pharmacy 05/19/20 Jemal Orozco MD [address] [place], [place] [id number] Cardiology 10/31/22 Cake Press Operator Helper Relationship Specialty Start Date End Date Ivette Grimes MD [address] [place] [address] PCP - General Family Medicine 11/21/13 Jagdish Carballo, [facility]ly [facility] [address] [place] [address] Pharmacist Pharmacy 05/19/20 Jemal Orozco MD [address] [place], [place] [id number] Cardiology 10/31/22 Cake Press Operator Helper Relationship Specialty Start Date End Date Ivette Grimes MD [address] [place] [address] PCP - General Family Medicine 11/21/13 Jagdish Carballo, [facility] [address] [place] [address] Pharmacist Pharmacy 05/19/20 Jemal Orozco MD [address] [place] [address] Cardiology 10/31/22 Cake Press Operator Helper Relationship Specialty Start Date End Date Ivette Grimes MD [address] [place], [place] [address] PCP - General Family Medicine 11/21/13 [facility] [address] [place] [address] Pharmacist Pharmacy 05/19/20 Jemal Orozco MD [address] [place] [address] Cardiology 10/31/22 Team Status: Active Member Role Status Dates Dr. Ivette Grimes MD Family Provider Active Team Status: Inactive Member Role Status Dates Dr. Bibiana Rehman DC Attending Provider Active Team Status: Inactive Member Role Status Dates Dr. Ivette Grimes MD Primary Care Provider Active Adelina Mason SLITTING MACHINE OPERATOR, SLITTING MACHINE OPERATOR-C Attending Provider, Referrin g Provider Active Team Status: Inactive Member Role Status Dates Dr. Bibiana Rehman DC Attending Provider Active Self Referred Primary Care Provider, Referring Provide r Active Team Status: Active Member Role Status Dates Self Referred Primary Care Provider, Attending Provide r Active Team Status: Active Member Role Status Dates Dr. Ivette Grimes MD Primary Care Provider Active Dr. Niurka Kendall DO Emergency Provider Active Dr. Sosa Mendez MD Admit Provider, Attending Prov ider Active Cake Press Operator Helper Relationship Specialty Start Date End Date Ivette Grimes MD [address] [place], [place] 418[address] PCP - General Family Medicine 11/21/13 [facility] [address] [place] [address] Pharmacist Pharmacy 05/19/20 Jemal Orozco MD [address] [place] [address] Cardiology 10/31/22 Cake Press Operator Helper Relationship Specialty Start Date End Date Ivette Grimes MD [address] [place] [address] PCP - General Family Medicine 11/21/13 [facility] [address] [place] [address] Pharmacist Pharmacy 05/19/20 Jemal Orozco MD [address] [place] [address] Cardiology 10/31/22 Cake Press Operator Helper Relationship Specialty Start Date End Date Ivette Grimes MD [address] [place] [address] PCP - General Family Medicine 11/21/13 [facility] [address] [place] [address] Pharmacist Pharmacy 05/19/20 Jemal Orozco MD [address] [place] [address] Cardiology 10/31/22 Cake Press Operator Helper Relationship Specialty Start Date End Date Ivette Grimes MD [address] [place] [address] PCP - General Family Medicine 11/21/13 Jagdish Carballo, [facility] [address] [place] [address] Pharmacist Pharmacy 05/19/20 Jemal Orozco MD [address] [place] [address] Cardiology 10/31/22 Team Status: Inactive Member Role Status Dates Dr. Bibiana Rehman DC Attending Provider Active Dr. Ivette Grimes MD Primary Care Provider, Referring Provider Active Team Status: Active Member Role Status Dates Dr. Ivette Grimes MD Primary Care Provider Active Dr. Vin Montes MD Attending Provider Active Dr. Sosa Mendez MD Referring Provider Active Team Status: Active Member Role Status Dates Dr. Ivette Grimes MD Primary Care Provider Active Dr. Niurka Kendall DO Emergency Provider Active Dr. Sosa Mendez MD Admit Provider, Attending Provider, Other Provider Active Team Status: Inactive Member Role Status Dates Self Referred Primary Care Provider, Attending Provide r Active Team Status: Inactive Member Role Status Dates Dr. Ivette Grimes MD Primary Care Provider Active Dr. Niurka Kendall DO Emergency Provider Active Dr. Sosa Mendez MD Admit Provider, Attending Prov ider Active Cake Press Operator Helper Relationship Specialty Start Date End Date Ivette Grimes MD [address] [place] [address] PCP - General Family Medicine 11/21/13 [facility] [address] [place] [address] Pharmacist Pharmacy 05/19/20 Jemal Orozco MD [address] [place] [address] Cardiology 10/31/22 Cake Press Operator Helper Relationship Specialty Start Date End Date Ivette Grimes MD [address] [place], [place] [address] PCP - General Family Medicine 11/21/13 [facility] [address] [place], [place] 604381 Pharmacist Pharmacy 05/19/20 Jemal Orozco MD [address] [place], [place] [phone] Cardiology 10/31/22 Cake Press Operator Helper Relationship Specialty Start Date End Date Ivette Grimes MD [address] [facility], [place] [address] PCP - General Family Medicine 11/21/13 [facility] [address] [place] [address] Pharmacist Pharmacy 05/19/20 Jemal Orozco MD [address] [place], [place] [phone] Cardiology 10/31/22 Team Status: Inactive Member Role Status Dates Dr. Ivette Grimes MD Primary Care Provider Active Dr. Luan Zepeda DO Emergency Provider Active Cake Press Operator Helper Relationship Specialty Start Date End Date Ivette Grimes MD [address] [place] [address] PCP - General Family Medicine 11/21/13 [facility] [address] [place] [address] Pharmacist Pharmacy 05/19/20 Jemal Orozco MD [address] [place], [place] [address] Cardiology 10/31/22 Cake Press Operator Helper Relationship Specialty Start Date End Date Ivette Grimes MD [address] [place] [address] PCP - General Family Medicine 11/21/13 [facility] [address] [facility], [place] [address] Pharmacist Pharmacy 05/19/20 Jemal Orozco MD [address] [place], [place] [address] Cardiology 10/31/22 Cake Press Operator Helper Relationship Specialty Start Date End Date Ivette Grimes MD [address] [place], [place] [address]2221 PCP - General Family Medicine 11/21/13 Jagdish Carballo, [facility] [address] [place], [place] [id number] Pharmacist Pharmacy 05/19/20 Jemal Orozco MD [address] [place] [address] Cardiology 10/31/22 Team Status: Inactive Member Role Status Dates Dr. Ivette Grimes MD Primary Care Provider Active Dr. Luan Zepeda DO Attending Provider, Roxane go Active Cake Press Operator Helper Relationship Specialty Start Date End Date Ivette Grimes MD [address] [place], [place] [address]6931 PCP - General Family Medicine 11/21/13 Jemal Orozco MD [address] [place], [place] [address] Cardiology 10/31/22 Cake Press Operator Helper Relationship Specialty Start Date End Date Ivette Grimes MD [address] [place], [place] [address] PCP - General Family Medicine 11/21/13 Jemal Orozco MD [address] [place] [address] Cardiology 10/31/22 Cake Press Operator Helper Relationship Specialty Start Date End Date Ivette Grimes MD [address] [place], [place] [address]671 PCP - General Family Medicine 11/21/13 Jemal Orozco MD [address] [place], [place] [phone] Cardiology 10/31/22 Cake Press Operator Helper Relationship Specialty Start Date End Date Ivette Grimes MD [address] [place], [place] [address]101 PCP - General Family Medicine 11/21/13 Jemal Orozco MD [address] [place], [place] 8540995 Cardiology 10/31/22 Cake Press Operator Helper Relationship Specialty Start Date End Date Ivette Grimes MD [address] [place] [address] PCP - General Family Medicine 11/21/13 Jemal Orozco MD [address] [place], [place] 39504[address] Cardiology 10/31/22 Cake Press Operator Helper Relationship Specialty Start Date End Date Ivette Grimes MD [address] [place] [address] PCP - General Family Medicine 11/21/13 Jemal Orozco MD [address] [place], [place] 85305[address] Cardiology 10/31/22 Cake Press Operator Helper Relationship Specialty Start Date End Date Ivette Grimes MD [address] [place] [address] PCP - General Family Medicine 11/21/13 Jemal Orozco MD [address] [place], [place] [address]80[address] Cardiology 10/31/22 Cake Press Operator Helper Relationship Specialty Start Date End Date Ivette Grimes MD [address] [place], [place] 487821 PCP - General Family Medicine 11/21/13 Jemal Orozco MD [address] [place], [place] [address]1170[address] Cardiology 10/31/22 Cake Press Operator Helper Relationship Specialty Start Date End Date Ivette Grimes MD [address] [place], [place] 135001 PCP - General Family Medicine 11/21/13 Jemal Orozco MD [address] [place], [place] 33348[address] Cardiology 10/31/22 Cake Press Operator Helper Relationship Specialty Start Date End Date Ivette Grimes MD [address] [place], [place] 504211 PCP - General Family Medicine 11/21/13 Jemal Orozco MD [address] [place], [place] 65687[address] Cardiology 10/31/22 Cake Press Operator Helper Relationship Specialty Start Date End Date Ivette Grimes MD [address] [place], [place] 374661 PCP - General Family Medicine 11/21/13 Jemal Orozco MD [address] [place] [address] Cardiology 10/31/22 Cake Press Operator Helper Relationship Specialty Start Date End Date Ivette Grimes MD [address] [place], [place] 659201 PCP - General Family Medicine 11/21/13 Jemal Orozco MD [address] [place] [address] Cardiology 10/31/22 Cake Press Operator Helper Relationship Specialty Start Date End Date Ivette Grimes MD [address] [place], [place] 679881 PCP - General Family Medicine 11/21/13 Jemal Orozco MD [address] [place], [place] 41545[address] Cardiology 10/31/22 Cake Press Operator Helper Relationship Specialty Start Date End Date Ivette Grimes MD [address] [place], [place] 546711 PCP - General Family Medicine 11/21/13 Jemal Orozco MD [address] [place], [place] 54926[address] Cardiology 10/31/22 Cake Press Operator Helper Relationship Specialty Start Date End Date Ivette Grimes MD [address] [place] [address] PCP - General Family Medicine 11/21/13 Jagdish Carballo, [facility] [address] [place], [place] [address]01 Pharmacist Pharmacy 05/19/20 12/25/23 Jemal Orozco MD [address] [place], [place] 6958395 Cardiology 10/31/22 Cake Press Operator Helper Relationship Specialty Start Date End Date Ivette Grimes MD [address] [place], [place] 685831 PCP - General Family Medicine 11/21/13 Jemal Orozco MD [address] [place] [address] Cardiology 10/31/22 Cake Press Operator Helper Relationship Specialty Start Date End Date Ivette Grimes MD [address] [place], [place] 133991 PCP - General Family Medicine 11/21/13 Jemal Orozco MD [address] [place] [address] Cardiology 10/31/22 Cake Press Operator Helper Relationship Specialty Start Date End Date Ivette Grimes MD [address] [place], [place] 466151 PCP - General Family Medicine 11/21/13 Jemal Orozco MD [address] [place], [place] 5446995 Cardiology 10/31/22 Cake Press Operator Helper Relationship Specialty Start Date End Date Ivette Grimes MD [address] [place] [address] PCP - General Family Medicine 11/21/13 Jemal Orozco MD [address] [place], [place] 3609[address] Cardiology 10/31/22 Cake Press Operator Helper Relationship Specialty Start Date End Date Ivette Grimes MD [address] [place], [place] 555661 PCP - General Family Medicine 11/21/13 Jemal Orozco MD [address] [place], [place] [address]1967[address] Cardiology 10/31/22 Cindy Edouard APRN.ELECTROTYPER HELPER [address] [place] [address] Dietetics Professor Family Medicine 10/12/24 Lubna De La Garza APRN.ELECTROTYPER HELPER [address] [place] [address] Dietetics Professor Family Medicine 10/12/24 Cake Press Operator Helper Relationship Specialty Start Date End Date Ivette Grimes MD [address] [place] [address] PCP - General Family Medicine 11/21/13 Jemal Orozco MD [address] [place] [address] Cardiology 10/31/22 Cindy Edouard APRN.ELECTROTYPER HELPER [address] [place] [address] Dietetics Professor Family Medicine 10/12/24 Lubna De La Garza APRN.ELECTROTYPER HELPER [address] [place] [address] Dietetics Professor Family [facility] 10/12/24 Cake Press Operator Helper Relationship Specialty Start Date End Date Ivette Grimes MD [address] [place], [place] 511441 PCP - General Family Medicine 11/21/13 Jemal Orozco MD [address] [place], [place] [address]74[address] Cardiology 10/31/22 Cindy Edouard, TRANSMITTER SUPERVISOR.ELECTROTYPER HELPER [address] [place] [address] [facility] 10/12/24 Lubna De La Garza TRANSMITTER SUPERVISOR.ELECTROTYPER HELPER [address] [place] [address] [facility] 10/12/24 Cake Press Operator Helper Relationship Specialty Start Date End Date Ivette Grimes MD [address] [place] [address] PCP - General Family Medicine 11/21/13 Jemal Orozco MD [address] [place], [place] [phone] Cardiology 10/31/22 Cindy Edouard TRANSMITTER SUPERVISOR.ELECTROTYPER HELPER [address] [place] [address] [facility] Medicine 10/12/24 Lubna De La Garza TRANSMITTER SUPERVISOR.ELECTROTYPER HELPER [address] [place] [address] [facility] 10/12/24 Cake Press Operator Helper Relationship Specialty Start Date End Date Ivette Grimes MD [address] [place] [address] PCP - General Family Medicine 11/21/13 Jemal Orozco MD [address] [place], [place] 8149295 Cardiology 10/31/22 Cindy Edouard, TRANSMITTER SUPERVISOR.ELECTROTYPER HELPER [address] [place] [address] Dietetics Professor Family Medicine 10/12/24 Lubna De La Garza TRANSMITTER SUPERVISOR.ELECTROTYPER HELPER [address] [place] [address] Dietetics Professor Family Medicine 10/12/24 Cake Press Operator Helper Relationship Specialty Start Date End Date Ivette Grimes MD [address] [place] [address] PCP - General Family Medicine 11/21/13 Jemal Orozco MD [address] [place] [address] Cardiology 10/31/22 Cindy Edouard, TRANSMITTER SUPERVISOR.ELECTROTYPER HELPER [address] [place] [address] Dietetics Professor Family Medicine 10/12/24 Lubna De La Garza TRANSMITTER SUPERVISOR.ELECTROTYPER HELPER [address] [place] [address] Dietetics Professor Family Medicine 10/12/24 Cake Press Operator Helper Relationship Specialty Start Date End Date Ivette Grimes MD [address] [place] [address] PCP - General Family Medicine 11/21/13 Jemal Orozco MD [address] [place] [address] Cardiology 10/31/22 Cindy Edouard, TRANSMITTER SUPERVISOR.ELECTROTYPER HELPER [address] [place] [address] Dietetics Professor Family Medicine 10/12/24 Lubna De La Garza TRANSMITTER SUPERVISOR.ELECTROTYPER HELPER [address] [place] [address] [facility] 10/12/24 Cake Press Operator Helper Relationship Specialty Start Date End Date Ivette Grimes MD [address] [place] [address] PCP - General Family Medicine 11/21/13 Jemal Orozco MD [address] [place], [place] [address] Cardiology 10/31/22 Cindy Edouard, TRANSMITTER SUPERVISOR.ELECTROTYPER HELPER [address] [place] [address] Dietetics Professor Family Medicine 10/12/24 Lubna De La Garza, TRANSMITTER SUPERVISOR.ELECTROTYPER HELPER [address] [place] [address] Dietetics Professor Family Medicine 10/12/24 Cake Press Operator Helper Relationship Specialty Start Date End Date Ivette Grimes MD [address] [place] [address] PCP - General Family Medicine 11/21/13 Jemal Orozco MD [address] [place] [address] Cardiology 10/31/22 Cindy Edouard TRANSMITTER SUPERVISOR.ELECTROTYPER HELPER [address] [place] [address] Dietetics Professor Family Medicine 10/12/24 Lubna De La Garza TRANSMITTER SUPERVISOR.ELECTROTYPER HELPER [address] [place] [address] Dietetics Professor Family Medicine 10/12/24 Cake Press Operator Helper Relationship Specialty Start Date End Date Ivette Grimes MD [address] [place] [address] PCP - General Family Medicine 11/21/13 Jemal Orozco MD [address] [place] [address] Cardiology 10/31/22 Cindy Edouard TRANSMITTER SUPERVISOR.ELECTROTYPER HELPER [address] [place] [address] Dietetics Professor Family Medicine 10/12/24 Lubna De La Garza TRANSMITTER SUPERVISOR.ELECTROTYPER HELPER [address] [place] [address] Dietetics Professor Family Medicine 10/12/24 Cake Press Operator Helper Relationship Specialty Start Date End Date Ivette Grimes MD [address] [place], [place] [address]9401 PCP - General Family Medicine 11/21/13 Jemal Orozco MD [address] [place], [place] [address]99[address] Cardiology 10/31/22 Cindy Edouard TRANSMITTER SUPERVISOR.ELECTROTYPER HELPER [address] [facility], [place] [address] [facility] 10/12/24 Lubna De La Garza TRANSMITTER SUPERVISOR.ELECTROTYPER HELPER [address] [facility], [place] [address] [facility] 10/12/24 Cake Press Operator Helper Relationship Specialty Start Date End Date Ivette Grimes MD [address] [place], [place] [address]6461 PCP - General Family Medicine 11/21/13 Jemal Orozco MD [address] [place], [place] [phone] Cardiology 10/31/22 Cindy Edouard APRN.ELECTROTYPER HELPER [address] [facility], [place] [address] [facility] 10/12/24 Lubna De La Garza APRN.ELECTROTYPER HELPER [address] [place] [address] [facility] 10/12/24 Team Status: Active Member Role Status Dates Dr. Ivette Grimes MD Primary Care Provider Active Team Status: Inactive Member Role Status Dates Dr. Ivette Grimes MD Primary Care Provider Active Start: October 16, 2024 End: October 16, 2024 Dr. Sam Pearl MD Attending Provider Active Start: October 16, 2024 End: October 16, 2024 Dr. Sam Pearl MD Emergency Provider Active Start: October 16, 2024 End: October 16, 2024 Team Status: Inactive Member Role Status Dates Dr. Ivette Grimes MD Primary Care Provider Active Start: October 19, 2024 End: October 19, 2024 Dr. Ivette Grimes MD Referring Provider Active Start: October 19, 2024 End: October 19, 2024 Dr. Bibiana Rehman DC Attending Provider Active S tart: October 19, 2024 End: October 19, 2024 Team Status: Inactive Member Role Status Dates Dr. Ivette Grimes MD Primary Care Provider Active Start: November 11, 2024 End: November 11, 2024 Dr. Buddy Hall DO Attending Provider Active Start: November 11, 2024 End: November 11, 2024 Dr. Buddy Hall DO Emergency Provider Active Start: November 11, 2024 End: November 11, 2024 Team Status: Inactive Member Role Status Dates Dr. Ivette Grimes MD Primary Care Provider Active Start: December 11, 2024 End: December 11, 2024 FADUMO Lara Attending Provider Active Start: December 11, 2024 End: December 11, 2024 FADUMO Lara Referring Provider Active Start: December 11, 2024 End: December 11, 2024 Team Status: Inactive Member Role Status Dates Dr. Ivette Grimes MD Primary Care Provider Active Start: January 28, 2025 End: January 28, 2025 Dr. Ivette Grimes MD Attending Provider Active Start: January 28, 2025 End: January 28, 2025 Dr. Ivette Grimes MD Referring Provider Active Start: January 28, 2025 End: January 28, 2025 Cake Press Operator Helper Relationship Specialty Start Date End Date Ivette Grimes MD [address] [place] [address] PCP - General Family Medicine 11/21/13 Jemal Orozco MD [address] [place] [address] Cardiology 10/31/22 Cindy Edouard APRN.ELECTROTYPER HELPER [address] [place] [address] Dietetics Professor Family Medicine 10/12/24 Lubna De La Garza APRN.ELECTROTYPER HELPER [address] [place] [address] [facility] 10/12/24 Cake Press Operator Helper Relationship Specialty Start Date End Date Ivette Grimes MD [address] [place], [place] 236161 PCP - General Family Medicine 11/21/13 Jemal Orozco MD [address] [place] [address] Cardiology 10/31/22 Cindy Edouard, TRANSMITTER SUPERVISOR.ELECTROTYPER HELPER [address] [place] [address] [facility] 10/12/24 Lubna De La Garza, TRANSMITTER SUPERVISOR.ELECTROTYPER HELPER [address] [place] [address] [facility] 10/12/24 Team Status: Inactive Member Role Status Dates Dr. Ivette Grimes MD Primary Care Provider Active Start: February 04, 2025 End: February 04, 2025 Dr. Ivette Grimes MD Referring Provider Active Start: February 04, 2025 End: February 04, 2025 Dr. Bibiana Rehman DC Attending Provider Active S tart: February 04, 2025 End: February 04, 2025 Team Status: Active Member Role Status Dates Dr. Ivette Grimes MD Primary Care Provider Active Start: March 09, 2025 Dr. Ivette Grimes MD Attending Provider Active Start: March 09, 2025 Dr. Ivette Grimes MD Referring Provider Active Start: March 09, 2025 Team Status: Inactive Member Role Status Dates Dr. Ivette Grimes MD Primary Care Provider Active Start: March 09, 2025 End: March 09, 2025 Dr. Ivette Grimes MD Referring Provider Active Start: March 09, 2025 End: March 09, 2025 Dr. Bibiana Rehman DC Attending Provider Active S tart: March 09, 2025 End: March 09, 2025 Team Status: Inactive Member Role Status Dates Dr. Ivette Grimes MD Primary Care Provider Active Start: March 11, 2025 End: March 11, 2025 Brett Quiroga MD Attending Provider Active St art: March 11, 2025 End: March 11, 2025 Brett Quiroga MD Referring Provider Active St art: March 11, 2025 End: March 11, 2025 Team Status: Inactive Member Role Status Dates Dr. Ivette Grmies MD Primary Care Provider Active Start: March 22, 2025 End: March 22, 2025 Dr. Ivette Grimes MD Referring Provider Active Start: March 22, 2025 End: March 22, 2025 Brett Quiroga MD Attending Provider Active St art: March 22, 2025 End: March 22, 2025 Team Status: Inactive Member Role Status Dates Dr. Ivette Grimes MD Primary Care Provider Active Start: March 22, 2025 End: March 22, 2025 Dr. Ivette Grimes MD Referring Provider Active Start: March 22, 2025 End: March 22, 2025 Dr. Bibiana Rehman DC Attending Provider Active S tart: March 22, 2025 End: March 22, 2025 Cake Press Operator Helper Relationship Specialty Start Date End Date Ivette Grimes MD [address] [place], [place] [address] PCP - General Family Medicine 11/21/13 Jemal Orozco MD [address] [place] [address] Cardiology 10/31/22 Cindy Edouard, TRANSMITTER SUPERVISOR.ELECTROTYPER HELPER [address] [place], [place] [id number] [facility] 10/12/24 Lubna De La Garza TRANSMITTER SUPERVISOR.ELECTROTYPER HELPER [address] [place], [place] [address] [facility] 10/12/24 Team Status: Inactive Member Role Status Dates Dr. Ivette Grimes MD Primary Care Provider Active Start: April 05, 2025 End: April 05, 2025 Dr. Ivette Grimes MD Referring Provider Active Start: April 05, 2025 End: April 05, 2025 Dr. Bibiana Rehman , [place] Attending Provider Active S tart: April 05, 2025 End: April 05, 2025 Cake Press Operator Helper Relationship Specialty Start Date End Date Ivette Grimes MD [address] [place], [place] [id number] PCP - General Family Medicine 11/21/13 Jemal Orozco MD [address] [place] [address] Cardiology 10/31/22 Cindy Edouard APRN.ELECTROTYPER HELPER [address] [place], [place] [address] [facility] 10/12/24 Lubna De La Garza TRANSMITTER SUPERVISOR.ELECTROTYPER HELPER [address] [place] [place], [place] [id number] [facility] 10/12/24 INFORMATION SOURCE (unrecogn ized section and content) DATE CREATED AUTHOR 01/25/2023 [facility] DATE CREATED AUTHOR AUTHOR'S ORGANIZ ATION 04/08/2025 [facility] DATE CREATED AUTHOR AUTHOR'S ORGANIZ ATION 04/16/2025 [facility] Inactive Administered Medications - up to 3 most recent administrations Administered Medications (un recognized section and content) Medication Order MAR Action Action Date Dose Rate Site onabotulinum toxin type A 200 Units injection (BOTOX) 200 Units, INTRAMUSCULAR, ONCE, 1 dose, On Michelle 12/26/23 at 1030, This record documents the total dose provided to patient. See progress note for specific locations and amounts administered. Given 12/26/2023 10:11 AM EST 200 Units Oth er FOR RECORDS PERTAINING TO PATIENTS WHO ARE OR HAVE BEEN ENROLLED IN A CHEMICAL DEPENDENCY/SUBSTANCEABUSE PROGRAM, SOME INFORMATION MAY BE OMITTED. This clinical summary was aggregated from multiple sources. Caution should be exercised in using it in the provision of clinical care. This summary normalizes information from multiple sources, and as a consequence, information in this document may materially change the coding, format and clinical context of patient data. In addition, data may be omitted in some cases. CLINICAL DECISIONS SHOULD BE BASED ON THE PRIMARY CLINICAL RECORDS. [facility] provides no warranty or guarantee of the accuracy or completeness of information in this document.
--- NOTE | 2025-04-17 12:30 | MRI_ITS ---
PROCEDURE: UPPER EXT JOINT ONLY(ROUTINE) 04/17/2025 REASON FOR EXAM: PAIN, WEAKNESS, FAILED PT TECHNIQUE: T1, T2, PD, MRI of the left upper Extremity. Multiplanar and multisequence images were obtained without IV contrast administration. COMPARISON: COMPARISON : March 11, 2025 x-ray FINDINGS: Bone Marrow: There is no bony contusion or occult fracture. AC joint: The AC joint is aligned. There is no evidence of AC joint separation. There is a type 2 acromion. Rotator cuff: There is no muscular atrophy. There is mild distal supraspinatus tendinopathy without full-thickness tear or retraction. The infraspinatus, subscapularis, and teres minor appear intact. Labrum: There is no visible labral tear. Biceps tendon: The biceps tendon is present within the biceps tendon groove. The biceps tendon anchors appear intact. Effusion: There is a trace joint effusion. There is a small amount of fluid in the subacromial subdeltoid bursa, with bursitis. Soft Tissues: Adjacent soft tissues are unremarkable. MRI/Upper Ext Joint Only(Routine) IMPRESSION: There is mild distal supraspinatus tendinopathy without full-thickness tear or retraction. There is a trace joint effusion. There is a small amount of fluid in the subacromial subdeltoid bursa, with burs itis. Reading Location: [facility]
== END | disposition home or self-care (01) ==
LOC: MRI 11:56
PROVIDERS: PCP Family Medicine; Referring Provider Orthopaedic Surgery Sports Medicine; Visit Provider Orthopaedic Surgery Sports Medicine
DX: M25.512 Pain in left shoulder (principal); R53.1 Weakness
CPT/HCPCS: 73221

== ENCOUNTER 2025-05-11 09:30 | Outpatient (RCR) | payer OTHER, SELFPAY ==
--- NOTE | 2025-02-08 14:34 | HP.PTEVAL ---
Patient's Visit Information Visit Information Visit Information: TORI GARCIA is a 44 year old F referred to Physical Therapy by Dr. Zeferino Leon MD with a diagnosis of L shoulder pain. Date of Evaluation: 02/08/25 Physical Therapist: Santana Ruano DPT Visit Plan Frequency: 2x /Week Duration: 6 Weeks Plan: 1) DN to L UT and levator scap 2) levator scap and UT stretch 3) mid trap, postural strengthening. 4) trial cervical retraction and extension as well. Subjective Subjective: Pt. is here today for her initial evaluation with diagnosis of chronic L shoulder pain. pt. reports having a history of L shoulder pain. Pt. reports having pain down her arm, "it feels like tingling" at times. She reports increased symptoms with certain arm movements, but not consistently. Pt. reports changing her sleep pattern due to tingling. Pt. is going to gym and feels this helps. Pt. did change her job where she is doing more sitting. Pt. reports no changes in strength. She had same issues previously which did get better with a nerve block. Pain L shoulder: Pain Intensity (Out of 10): 2 Pain Intensity Range: 1 and 6 Objective Objective: POSTURE: Pt. has slight fwrd head posture. Pt. has rounded shoulders. PALPATION: Pt. has tenderness at L UT and L levator scap. No much through anterior shoulder.' NEURO: normal sensation and normal DTR of BUEs. ROM: B shoulder ROM: full without increase in symptoms. CERVICAL SPINE: flexion nil loss NE, ext min loss decrease no better, SB min loss NE bilat, rotation min loss NE. MMT: Pt. has slight weakness in L shoulder 4/5 flexion, abd, and IR motions. 5/5 rest of motion. R shoulder 5/5 throughout. Special Tests L Shoulder Drop Sign - IS Test: Negative L Shoulder Empty Can - SS: Negative L Shoulder Belly Press - SupScap: Negative L Shoulder Neer - Impingement: Negative L Shoulder Yeargasons - SLAP: Negative L Shoulder Speeds Test - Labrum/Biceps: Negative L Shoulder Sulcus Sign - Inferior Laxity: Negative Balance/Special Test Scores Quick DASH Score: 25.0000 Goals Goal 1:: LTG: Pt. to be I with HEP. Goal Time Frame: 4-6 Weeks Goal 2:: STG: pt. to sleep without increase in symptoms. Goal Time Frame: 2 Weeks Goal 3:: LTG: Pt. to have symmetrical strength between BUEs. Goal Time Frame: 4-6 Weeks Goal 4:: LTG: Pt. to report no N/T in LUE with all work and daily activities. Goal Time Frame: 4-6 Weeks Rehabilitation Potential Physical Therapy Diagnosis: Pt. has signs and symptoms consistent with L shoulder pain. Pt. has some weakness as well has increased pain. Pt. would benefit from PT to increase her strength and decrease her pain. Rehabilitation Potential: Good Anticipated Interventions Patient/Client Instruction: Educate patient on: Condition, Plan of Care, Risk Factors and Benefits of Fitness Program For the Purpose of:: To improve decision making, To facilitate caregiver knowledge, To improve self management, To prevent re-injury, To improve ability to perform tasks related to life management and To improve tolerance to ADL's Therapeutic Exercise to Include: Strength training, Postural training, Flexibilty training, Passive ROM, Active ROM and Scapular Strength/Stabilization For the Purpose of:: To decrease pain, To increase ROM, To improve nutrient delivery to tissue, To increase oxygenation perfusion, To improve muscle performance and motor function, To improve ability to perform ADL's, To improve health of tissue, To decrease soft tissue restriction and To increase flexibility/ROM Manual Therapy Techniques to Include: Functional dry needling and Soft tissue mobilization For the Purpose of:: To decrease pain, To decrease swelling/inflammation, To increase ROM and To improve nutrient delivery to tissue Text: Thank you for the opportunity to evaluate your patient. For Medicare and Medicare HMO plans, please review the plan of care and approve it. It will need to be FAXED BACK to us at [phone] for Medicare purposes. For Medicare only, by signing this I certify the plan of care. Please let me know if there are questions or concerns regarding this plan of care. Physician Signature: Date:
== END 2025-05-11 19:00 | disposition home or self-care (01) ==
LOC: PT 09:30
PROVIDERS: PCP Family Medicine; Referring Provider Family Medicine; Visit Provider Family Medicine
DX: M25.512 Pain in left shoulder (principal); G89.29 Other chronic pain
CPT/HCPCS: 97035; 97110; 97161

== ENCOUNTER → 2025-06-09 | Outpatient (CLI) | payer OTHER, SELFPAY ==
--- OUTSIDE RECORDS SUMMARY | 2025-06-09 06:15 | XMS RPT_ITS | CCD ---
Author Organization [facility] Care Team Providers Care Payroll Processor Name Role Phone Dossi Bibiana BEEBE Unavailable Roya Dixon Unavailable Roya Dixon Unavailable Amparo Hitchcock MD Unavailable [phone] Ivette Grimes MD Primary Care Provider [facility], Keti Unavailable Dr. Ivette Grimes Primary Care Provider Dr. Ivette Grimes Referring Provider Dr. Bibiana Rehman Attending Provider [phone] Dr. Munir Siddiqui Attending Provider Dr. Marin Villalpando Attending Provider [phone] Dr. Munir Lucas Attending Provider Dr. Sam Greene Referring Provider Ivette Grimes MD Primary Care Provider [facility], [place] Unavailable Kait [facility], Keti Unavailable Dr. Ivette Grimes Primary Care Provider Dr. Ivette Grimes Referring Provider Dr. Bibiana Rehman Attending Provider [phone] Ivette Grimes MD Primary Care Provider Dr. Ivette Grimes Primary Care Provider Dr. Ivette Grimes Referring Provider Dossi, Dr. Mccarty Attending Provider [phone] Dr. Primo Ceron Attending Provider Eads, Dr. Mcgarry Primary Care Provider Eads, Dr. Mcgarry Referring Provider Dossi, Dr. Mccarty Attending Provider [phone] Cesar, Dr. Churchill Attending Provider Eads, Dr. Mcgarry Primary Care Provider Eads, Dr. Mcgarry Referring Provider Dossi, Dr. Mccarty Attending Provider [phone] Eads, Dr. Mcgarry Primary Care Provider Eads, Dr. Mcgarry Referring Provider Dossi, Dr. Mccarty Attending Provider [phone] Dr. Primo Ceron Attending Provider Cesar, Dr. Churchill Attending Provider [phone] Eads Ivette SHEARER Primary Care Provider [facility], [place] Unavailable Eads, Dr. Mcgarry Primary Care Provider [phone] Eads, Dr. Mcgarry Referring Provider Dossi, Dr. Mccarty Attending Provider [phone] Ernesto SHEARER, Jemal Unavailable Eads, Dr. Mcgarry Primary Care Provider Eads, Dr. Mcgarry Referring Provider Dossi, Dr. Mccarty Attending Provider [phone] Eads, Dr. Mcgarry Primary Care Provider Eads, Dr. Mcgarry Referring Provider Dossi, Dr. Mccarty [...] Unavailable SYDNEY, IVETTE James Primary Care Unavailable Eads, Dr. Mcgarry Primary Care Provider Eads, Dr. Mcgarry Referring Provider Dossi, Dr. Mccarty Attending Provider [phone] Eads, Dr. Mcgarry Primary Care Provider Eads, Dr. Mcgarry Referring Provider Dossi, Dr. Mccarty Attending Provider [phone] Eads, Dr. Mcgarry Primary Care Provider Eads, Dr. Mcgarry Referring Provider Dossi, Dr. Mccarty Attending Provider [phone] Sydney, Dr. Mcgarry Primary Care Provider Eads, Dr. Mcgarry Referring Provider Dossi, Dr. Mccarty Attending Provider [phone] Eads, Dr. Mcgarry Primary Care Provider Eads, Dr. Mcgarry Referring Provider Dossi, Dr. Mccarty Attending Provider [phone] Referred, Self Primary Care Provider Unavailabl e Referred, Self Referring Provider Unavailable [facility], [place] Unavailable Dossi, Dr. Mccarty Attending Provider [phone] Referred, Self Primary Care Provider Unavailabl e Referred, Self Referring Provider Unavailable Eads, Dr. Mcgarry Primary Care Provider [facility], Dr. Banuelos Attending Provider [facility], Dr. Sosa Chirinos Referring Provider Dr. Niurka [...] Provider Ivette Grimes MD Primary Care Provider [facility], [place] Unavailable Haagen LICENSE CLERK.TRANSFER PROFESSOR, Cindy Unavailable Suppan LICENSE CLERK.TRANSFER PROFESSOR, Lubna A Unavailable [phone] [place] LICENSE CLERK.TRANSFER PROFESSOR, Lubna A Unavailable Suppan LICENSE CLERK.TRANSFER PROFESSOR, Lubna A Unavailable [phone] Dr. Ivette Grimes MD Primary Care Provider Dr. Sam Pearl MD Attending Provider Dr. Sam Pearl MD Emergency Provider Dr. Ivette Grimes MD Referring Provider Dossi CONCEPCIÓN, Dr. Mccarty Attending Provider Dr. Buddy Hall DO Attending Provider Dr. Buddy Hall DO Emergency Provider Tanya LEAD GENERATION SPECIALIST-CJenni Attending Provider Tanya LEAD GENERATION SPECIALIST-CJenni Referring Provider Dr. Ivette Grimes MD Attending Provider Sydney SHEARER, Dr. Mcgarry Primary Care Provider Sydney SHEARER, Dr. Mcgarry Referring Provider Ori BEEBE, Dr. Mccarty Attending Provider Junaid SHEARER, Brett Attending Provider [phone] Brett Quiroga MD Referring Provider [phone] SYDNEY, IVETTE James Attending Unavailable SYDNEY, IVETTE J Primary Care Unavailable SYDNEY, IVETTE James Attending Unavailable SYDNEY, IVETTE J Primary Care Unavailable AMANDA ARTEAGA Attending Unavailable SYDNEY, IVETTE James Primary Care Unavailable SYDNEY, IVETTE James Primary Care Unavailable SYDNEY, IVETTE James Attending Unavailable SYDNEY, IVETTE James Primary Care Unavailable SYDNEY, IVETTE James Attending Unavailable SYDNEY, IVETTE James Primary Care Unavailable SYDNEY, IVETTE James Attending Unavailable FATUMA BECKFORD Attending Unavailable FATUMA BECKFORD Referring Unavailable SYDNEY, IVETTE James Primary Care Unavailable SYDNEY, IVETTE James Attending Unavailable SYDNEY, IVETTE James Primary Care Unavailable SYDNEY, IVETTE James Attending Unavailable SYDNEY, IVETTE James Primary Care Unavailable JENNI MARTÍNEZ Attending Unavailabl e SYDNEY, IVETTE James Primary Care Unavailable Eads , Dr. Mcgarry Primary Care Provider Sydney SHEARER, Dr. Mcgarry Primary Care Provider Sydney SHEARER, Dr. Mcgarry Referring Provider Dr. Ivette Grimes MD Attending Provider Ivette Grimes Primary Care Unavailable Eads, Ivette Referring Unavailable DosBibiana virgen Attending Unavailable Sydney, Ivette Primary Care Unavailable Sydney, Ivette Referring Unavailable DosBibiana virgen Attending Unavailable Sydney, Ivette Primary Care Unavailable Sydney, Ivette Referring Unavailable DosBibiana virgen Attending Unavailable Sydney, Ivette Referring Unavailable DossiBibiana Attending Unavailable Sydney, Ivette Primary Care Unavailable Eads, Ivette Primary Care Unavailable Assessment, Health Risk Referring Unavaila ble Assessment, Health Risk Attending Unavaila ble Sydney, Ivette Primary Care Unavailable Buddy Hall Attending Unavailable Eads, Ivette Primary Care Unavailable Sydney, Ivette Referring Unavailable DossiBibiana Attending Unavailable Eads, Ivette Primary Care Unavailable Sydney, Ivette Referring Unavailable DossiBibiana Attending Unavailable Sydney, Ivette Primary Care Unavailable Sydney, Ivette Referring Unavailable Dossi, Bibiana Attending Unavailable Eads, Ivette Primary Care Unavailable Eads, Ivette Referring Unavailable Dossi, Bibiana Attending Unavailable Sydney, Ivette Primary Care Unavailable Sydney, Ivette Referring Unavailable Dossi, Bibiana Attending Unavailable Sydney, Ivette Primary Care Unavailable Eads, Ivette Referring Unavailable Eads, Ivette Attending Unavailable Eads, Ivette Attending Unavailable Eads, Ivette Referring Unavailable Eads, Ivette Primary Care Unavailable Jenni Martínez Referring Unavailable Jenni Martínez Attending Unavailable Eads, Ivette Primary Care Unavailable Mollison, Brett Referring Unavailable Mollison, Brett Attending Unavailable Sydney, Ivette Primary Care Unavailable Eads, Ivette Primary Care Unavailable Sam Pearl Attending Unavailable Sydney, Ivette Primary Care Unavailable Eads, Ivette Referring Unavailable Dossi, Bibiana Attending Unavailable Sydney, Ivette Referring Unavailable Dossi, Bibiana Attending Unavailable Sydney, Ivette Primary Care Unavailable Sydney, Ivette Primary Care Unavailable Mollison, Brett Referring Unavailable Mollison, Brett Attending Unavailable Eads, Ivette Primary Care Unavailable Eads, Ivette Attending Unavailable Sydney, Ivette Referring Unavailable Sydney, Ivette Attending Unavailable Eads, Ivette Referring Unavailable Sydney, Ivette Primary Care Unavailable Sydney, Ivette Primary Care Unavailable Mollison, Brett Attending Unavailable Sydney, Ivette Primary Care Unavailable Eads, Ivette Referring Unavailable Mollison, Brett Attending Unavailable Sydney, Ivette Primary Care Unavailable Eads, Ivette Referring Unavailable Dossi, Bibiana Attending Unavailable Eads, Ivette Referring Unavailable Mollison, Brett Attending Unavailable Eads, Ivette Primary Care Unavailable Eads, Ivette Primary Care Unavailable Dossi, Bibiana Attending Unavailable Eads, Ivette Referring Unavailable Eads, Ivette Referring Unavailable Jess DENNIS, Jesenia Attending Unavailable Sydney, Ivette Primary Care Unavailable Eads, Ivette Referring Unavailable Dossi, Bibiana Attending Unavailable Sydney, Ivette Primary Care Unavailable Allergies Allergy Classification Reported Allergen(s) Allergy Type Date of Onset Reaction(s) Facility (20 sources) Betamethasone; Translations: [BETAMETHASONE DIPROPIONATE] Drug Allergy 12-21-19 [facility], [facility] Work Phone: (20 sources) Lidocaine; Translations: [LIDOCAINE] Drug Allergy 12-24-19 [facility] Work Phone: (7 sources) Corticosteroids Allergy to substance 01-01-[address] [facility] Work Phone: (20 sources) Glucocorticoid Receptor Agonists Allergy to substance 10-16-20 Hives [facility] (20 sources) dapagliflozin; Translations: [DAPAGLIFLOZIN] Drug Allergy 08-05-20 GI Upset [facility] (20 sources) metFORMIN; Translations: [METFORMIN] Drug Allergy 08-05-20 GI [facility] (1 source) Corticosteroids Drug allergy (disorder) 06-01-20 [facility] (1 source) Lidocaine Drug Allergy 06-01-20 [facility] Medications Current Medications Medication Drug Class(es) Dates Sig (Normalized) Sig (Original) [id number] 200 actuat albuterol 0.09 mg/actuat metered dose [...] oral tablet (1 source) Macrolide Antimicrobial Start: End: azithromycin (ZITHROMAX Z-TEMO) 250 mg tablet [...] Comment on above: Take [address] [facility] once daily. FLUoxetine 20 mg oral capsule (20 sources) Serotonin Reuptake Inhibitor Start: 11-16-2022 End: 06-07-2026 take 1 capsule by mouth once daily FLUoxetine (PROZAC) 20 mg capsule Indications: Anxiety Take 1 capsule by mouth once daily. 90 capsule 3 06/07/2025 06/07/2026 Active Start: 10-12-2022 End: 11-18-2022 take 1 capsule by mouth once daily, then take 2 capsules by mouth once daily FLUoxetine (PROZAC) 10 mg capsule Take 1 capsule by mouth once daily for 7 days, THEN 2 capsules once daily. 67 capsule 1 10/12/2022 11/18/2022 Active Comment on above: Take 1 capsule by [facility] once daily for 7 days, THEN 2 capsules once daily. Take 1 capsule by [facility] once daily. gabapentin 300 mg oral capsule (20 sources) Anti-epileptic Agent Start: 06-07-2025 End: 12-04-2025 take 1 capsule by mouth once daily gabapentin (NEURONTIN) 300 mg capsule Indications: Headache, unspecified headache type Take 1 capsule by mouth once daily for 180 days. 90 capsule 06/07/2025 12/04/2025 Active Start: 02-28-2023 End: 06-06-2023 take 1 capsule [...] for 180 days. 180 capsule 1 01/22/2025 06/07/2025 Discontinued Start: 12-28-2022 take 300 mg by mouth [...] Start: 05-22-2017 take 1 capsule by mo ut three times daily GABAPENTIN 300 MG CAPS 1 po tid GABAPENTIN [id number] Jackson Brown Comment on above: Take 2 capsules by m outh twice daily for 90 days. Take 1 tablet in AM, afternoon and bedtime. If after 2 days symptoms persist, increase to 1 tab in AM, afternoon and 2 tabs at bedtime. Take one po qhs Take 1 capsule by mo uth twice daily for 180 days. Take one po qhs ipratropium bromide 0.021 mg/actuat metered dose nasal spray (20 sources) Anticholinergic Start: 05-02-2023 Ipratropium [place] (ATROVENT) 21 mcg (0.03 %) nasal spray Use 2 Sprays in the nose every 12 hours. 30 mL 5 05/02/2023 Active Start: 08-23-2020 Ipratropium Br omide 0.03 % spray,non-aerosol Active 2 NMA INTRANASAL TWICE A DAY August 23, 2020 12:00am allergies administer into each nostril Start: 08-23-2020 take 1 spray(s) nasa l route twice daily Ipratropium [place] Active 2 SPRAY INTRANASAL TWICE A DAY August 23, 2020 12:00am administer into each nostril Start: 03-14-2020 End: 05-01-2023 Ipratropium [place] (ATROVEN T) 0.03 % nasal spray Use [...] the CT contrast administration guidelines link. levonorgestrel 0.906821 mg/hr intrauterine system (20 sources) Progestin, Progestin-containing [...] Start: 09-09-2017 JOJO 13.5 MG IUD LEVONORGESTREL [id number] Amparo Hitchcock MD Comment on above: 1 [...] 1 tablet by mouth once daily Lisinopril 10 mg tablet Active 10 mg PO DAILY December 28, 2022 1:00am blood pressure Start: 02-14-2019 End: 05-22-2023 take 1 tablet by mouth once daily Lisinopril 5 MG tablet Discontinued 5 mg PO DAILY February 14, 2019 12:00am December 28, 2022 4:00pm HTN Comment on above: Take 1 tablet by ishmael th once daily. Magnesium (20 sources) MAGNESIUM ORAL [...] sources) Nonsteroidal Anti-inflammatory Drug Start: 03-02-20 End: 03-12-20 take 1 tablet by mouth once daily [...] Discontinued 100 mg PO Q12H 14 7 0 June 21, 2021 12:00am June 27, 2021 12:00am June 21, 2021 4:26pm must administer with a meal/food [place]-3 Fatty Acids (Fish Oil Concentrate) 1,000 mg capsule (20 sources) Start: 02-21-2021 take 1 capsule by mouth once daily [place]-3 Fatty Acids (Fish Oil Concentrate) 1,000 mg capsule Active 1000 MG PO DAILY February 21, 2021 9:19am Start: 02-21-2021 End: 10-16-2024 take 1 capsule by mouth once daily [place]-3 Fatty Acids (Fish Oil Concentrate) 1,000 mg capsule Discontinued 1000 mg PO DAILY February 21, 2021 12:00am October 16, 2024 10:15pm supplement Start: 02-21-2021 End: 10-16-2024 take 1 capsule by mouth once daily [place]-3 Fatty Acids (Fish Oil Concentrate) 1,000 mg capsule Discontinued 1000 mg PO DAILY February 21, 2021 12:00am October 16, 2024 10:15pm Start: 02-21-2021 take 1 capsule by mo ut once daily [place]-3 Fatty Acids (Fish Oil Concentrate) 1,000 mg capsule Active 1000 MG PO DAILY February 20, 2021 11:00pm Start: 02-21-2021 take 1 capsule by mo uth once daily [place]-3 Fatty Acids (Fish Oil Concentrate) 1,000 mg capsule Active 1000 MG PO DAILY February 21, 2021 12:00am omeprazole 20 mg delayed release oral capsule [...] above: Take 1 capsule by mo uth daily before breakfast. 1/2 hr before meal. ondansetron 4 mg oral tablet (20 sources) Serotonin-3 Receptor Antagonist Start: 4 take 1 tablet by mouth every eight hours as needed for nausea ondansetron (ZOFRAN) 4 mg tablet Indications: Flank pain Take 1 tablet by mouth every 8 hours as needed for nausea/vomiting. 29 tablet 10/19/2024 Active Start: 11-30-2022 End: 02-14-2023 take 1 tablet by mouth every eight hours as needed for nausea Ondansetron Hcl 4 mg tablet Active 4 mg PO Q8H as needed for nausea December 28, 2022 1:00am Start: 04-26-2020 End: 08-10-2022 take 1 tablet [...] on above: Take 1 tablet by ishmael every 8 hours as needed for nausea/vomiting. Qwqbywqo-Bj-Qnj-Fe -FA tab (20 sources) Start: 1 take 1 tablet by mouth once daily Njsfzdzh-Uh-Mse-F e-FA tab Take 1 tablet by mouth once daily. 0 03/14/2011 Active Comment on above: Take 1 tablet by ishmael once daily. cjxdzojm-qwf-Tq-FA 1 mg capsule (20 sources) Start: 0 take 1 capsule by mouth once daily wohyuznv-tfh-Jr-F A 1 mg capsule Active 1 CAP PO DAILY April 26, 2020 10:18am Start: 04-26-2020 End: 08-05-2023 take 1 capsule by mouth once daily uqyrohrn-qyb-Pm-FA 1 mg capsule Discontinued 1 CAP PO DAILY April 25, 2020 11:00pm August 05, 2023 10:25am Start: 04-26-2020 End: 08-05-2023 take 1 capsule by mouth once daily pkrqdhur-exh-Wv-FA 1 mg capsule Discontinued 1 CAP PO DAILY April 26, 2020 12:00am August 05, 2023 11:25am Start: 04-26-2020 take 1 capsule by mo uth once daily pxkctqaj-ruz-Gy-FA 1 mg capsule Active 1 CAP PO DAILY April 25, 2020 11:00pm Start: 04-26-2020 take 1 capsule by mo uth once daily zbdemlre-saj-Oz-FA 1 mg capsule Active 1 CAP PO [...] by ishmael once daily as needed. Semaglutide (9 sources) Start: 10-16-2024 Semaglutide (Ozempic) 0.25 mg or 0.5 mg (2 mg/3 mL) pen injector Active 0.5 mg SC EVERY WEEK October 16, 2024 1:00am semaglutide (OZEMPIC) 1 mg/dose (4 mg/3 mL) pen (13 sources) Start: 01-22-2025 End: 07-21-2025 inject 1 mg by subcutaneous injection every week semaglutide (OZEMPIC) 1 mg/dose (4 mg/3 mL) pen Indications: Type 2 diabetes mellitus with microalbuminuria, with long-term current use of insulin (HCC) Inject 1 mg subcutaneously one time a week. 3 mL 5 01/22/2025 07/21/2025 Active topiramate 100 mg oral tablet (20 sources) Anti-epilept ic Agent Start: 07-03-2022 End: 06-23-2025 take 1 [...] 50 mg PO TWICE A DAY 60 6 June 16, 2020 12:00am August 16, 2022 1:03pm Start: 04-28-2020 End: 05-05-2020 take 1 tablet by mouth twice daily Topiramate 25 mg tablet Discontinued 25 mg PO TWICE A DAY 14 7 0 April 28, 2020 12:00am May 04, 2020 12:00am May 05, 2020 12:02am Start: 09-09-2017 TROKENDI XR 20 0 MG [id number] TOPIRAMATE [id number] Amparo Hitchcock MD Start: 09-28-2016 End: 09-09-2017 TOPIRAMATE 15 MG CPSP 11/28 TOPIRAMATE [id number] Santana IRENE Comment on above: Take 1 tablet by ishmael th twice daily. Take 1 tab in AM and 2 tabs in PM. One tab daily Take 1 tablet by ishmael th two times a day. Completed/Discontinued Medications Medication Drug Class(es) Dates Sig (Normalized) Sig (Original) ACETAMINOPHEN CAPS (5 sources) Start: 09-28-2016 End: 09-09-2017 TYLENOL CAPS ACETAMINOPHEN CAPS [id number] Amparo Hitchcock MD Start: 09-28-2016 TYLENOL CAPS 2 ACETAMINOPHEN CAPS [id number] Santana IRENE acetaminophen 325 mg / HYDROcodone bitartrate 5 mg oral tablet (20 sources) Opioid Agonist Start: 05-06-2019 End: 05-10-2019 Hydrocodone-Acetaminophen 1 TABLET tablet Discontinued 1 {tbl} PO EVERY 4 HOURS NEEDED as needed for Pain 10 2 0 May 06, 2019 May 07, 2019 12:00am May 10, 2019 12:09am Flank pain Unspecified abdominal pain Start: 05-06-2019 End: 05-10-2019 take 1 tablet by mouth every four hours as needed Hydrocodone-Acetaminophen Discontinued 1 TABLET PO EVERY 4 HOURS NEEDED 10 2 May 06, 2019 May 10, 2019 12:09am Start: 05-10-2017 End: 05-14-2017 NORCO 5-325 MG TABS Take one every 6 hours as needed. HYDROCODONE-ACETAMINOPHEN [id number] Santana IRENE acetaminophen 325 mg / oxyCODONE hydrochloride 5 mg oral tablet (20 sources) Opioid Agonist Start: 02-25-2019 End: 03-04-2019 Oxycodone-Acetaminophen 1 TABLET tablet Discontinued 1 - 2 {tbl} PO EVERY 6 HOURS NEEDED as needed for Pain 30 7 0 February 25, 2019 12:00am March 03, 2019 12:00am March 04, 2019 12:07am Calculus of kidney Calculus of kidney Start: 02-25-2019 End: 03-04-2019 take 1 tablet by mouth every six hours as needed Oxycodone-Acetaminophen Discontinued 1 - 2 TABLET PO EVERY 6 HOURS NEEDED 30 7 February 25, 2019 12:00am March 04, 2019 12:07am Start: 02-17-2019 End: 02-22-2019 Oxycodone-Acetaminophen (Per cocet 5-325 Mg Tablet) 1 EACH tablet Discontinued 1 NMA PO EVERY 4 HOURS NEEDED as needed for Pain 28 5 0 February 17, 2019 4:38pm February 21, 2019 12:00am February 22, 2019 12:10am Calculus of kidney Calculus of kidney amitriptyline hydrochloride 25 mg oral tablet (20 [...] Discontinued 1 {tbl} PO TWICE A DAY 14 October 27, 2023 1:00am December 10, 2023 10:58am Start: 10-27-2023 End: 12-10-2023 take 1 tablet by mouth twice daily Amoxicillin-Pot Clavulanate Discontinued 1 TABLET PO TWICE A DAY October 27, 2023 1:00am December 10, 2023 10:58am Start: 02-17-2019 End: 02-25-2019 take 1 tablet by mouth every twelve hours Amoxicillin-Pot Clavulanate 875 MG tablet Discontinued 875 mg PO Q12H 14 0 February 17, 2019 12:00am February 25, 2019 [...] mg injection (MARCAINE PF) Start: 05-10-2022 End: 05-10-2022 bupivacaine(PF) 0.75 % (7.5 mg/mL) 37.5 mg injection (MARCAINE PF) 24 hr buPROPion hydrochloride 150 mg extended release oral tablet (20 sources) Aminoketone Start: 02-14-2019 End: 02-17-2019 take 1 tablet by mouth once daily Bupropion Hcl 150 MG Tablet.Xl Discontinued 150 mg PO DAILY February 14, 2019 12:00am February 17, 2019 4:36pm ANXIETY CPAP (20 sources) Start: 04-09-2022 CPAP Indicatio [...] mg PO THREE TIMES DAILY BEFORE MEALS 20 0 May 08, 2019 12:00am April 26, 2020 10:16am Start: 05-08-2019 End: 04-26-2020 take 20 mg by mouth three times daily before mealtime Dicyclomine Discontinued 20 MG PO THREE TIMES DAILY BEFORE MEALS May 08, 2019 12:00am April 26, 2020 10:16am diflunisal 500 mg oral tablet (5 sources) Nonsteroidal Anti-inflammatory Drug Start: 05-02-2017 End: 09-09-2017 DIFLUNISAL 500 MG TABS DIFLUNISAL [id number] Raghav IRENE 0.5 ml dulaglutide 1.5 mg/ml auto-injector (20 sources) GLP-1 Receptor Agonist Start: 07-25-2021 End: 10-16-2024 Dulaglutide (Trulicity) 0.75 mg/0.5 mL pen injector Discontinued 0.75 mg SC EVERY WEEK August 10, 2022 12:00am October 16, 2024 10:14pm diabetes Start: 04-26-2020 End: 08-10-2022 Dulaglutide (Trulicity) 1.5 [...] 22, 2018 12:00am February 21, 2021 9:15am MIGRAINES Start: 07-22-2018 End: 02-21-2021 inject 140 mg by intramuscular injection every month Erenumab-Aooe Discontinued 140 MG IM EVERY MONTH July 22, 2018 12:00am February 21, 2021 9:15am etodolac 500 mg oral tablet (20 sources) Nonsteroidal Anti-inflammatory Drug Start: 08-07-2021 End: 01-01-2022 take 1 tablet by mouth twice daily Etodolac 500 mg tablet Discontinued 500 mg PO TWICE A DAY 60 0 August 07, 2021 12:00am January 01, 2022 [...] mg tablet Discontinued 500 mg PO DAILY 10 June 21, 2021 12:00am January 01, 2022 4:28pm LORazepam 1 mg oral tablet (20 sources) Benzodiazepine Start: 02-27-2023 End: 03-28-2023 LORazepam (ATIVAN) 1 mg tablet Indications: Anxiety One tab one hour before test 1 tablet 0 02/27/2023 03/28/2023 Start: 09-28-2016 LORAZEPAM 1 MG TABS LORAZEPAM [id number] Santana IRENE Start: 10-27-2013 End: 04-26-2020 take [...] Discontinued 400 mg PO DAILY WITH MEALS 30 0 February 17, 2019 12:00am April 26, 2020 [...] NEEDED as needed for Pain Score 1-10/10 10 0 May 05, 2020 4:05pm August 23, 2020 10:23am naratriptan 2.5 mg oral tablet (20 sources) Serotonin-1b and Serotonin-1d Receptor Agonist Start: 4 End: 4 take 1 tablet by mouth twice daily as needed Naratriptan 2.5 mg tablet Discontinued 2.5 mg PO TWICE A DAY as needed December 10, 2023 1:00am February 04, 2024 1:19am No more than 10 times monthly Start: 09-13-2023 take 1 mg by mouth e very [...] a month. ofloxacin 3 mg/ml otic solution (14 sources) Quinolone Antimicrobial Start: 10-27-2023 End: 12-10-2023 Ofloxacin 0.3 % drops Discontinued 10 NMA LEFT EAR DAILY 10 7 0 October 27, 2023 1:00am December 10, 2023 10:58am Start: 05-28-2023 End: 06-04-2023 ofloxacin (FLOXIN) 0.3 % sarah c solution Use 10 Drops in both ears once daily for 7 days. 5 mL 0 05/28/2023 06/04/2023 Active Comment on above: Use 10 Drops in both ears once daily for 7 days. [place]-3 Fatty Acids (20 sources) Start: 04-26-2020 End: 08-23-2020 take 500 mg by mouth once daily [place]-3 Fatty Acids Discontinued 500 MG PO DAILY April 26, 2020 10:19am August 23, 2020 10:22am Start: 04-26-2020 End: 08-23-2020 take 500 mg by mouth once daily [place]-3 Fatty Acids Discontinued 500 MG PO DAILY April 25, 2020 11:00pm August 23, 2020 9:22am Start: 04-26-2020 End: 08-23-2020 take 500 mg by mouth once daily [place]-3 Fatty Acids Discontinued 500 MG PO DAILY April 26, 2020 12:00am August 23, 2020 10:22am [place]-3 Fatty Acids (FISH OIL) 500 mg cap (20 sources) Start: 10-09-2019 End: 06-07-2025 take 1 capsule by mouth once daily [place]-3 Fatty Acids (FISH OIL) 500 mg cap Take 1 capsule by mouth once daily. 30 capsule 11 10/09/2019 06/07/2025 Discontinued Start: 10-09-2019 take 1 capsule by [facility] once daily [place]-3 Fatty Acids (FISH OIL) 500 mg cap Take 1 capsule by mouth once daily. 30 capsule 10/09/2019 Active Comment on above: Take 1 capsule by [facility] once daily. [place]-3 Fatty Acids 500 mg capsule (9 sources) Start: End: take 1 capsule by mouth once daily [place]-3 Fatty Acids 500 mg capsule Discontinued 500 mg PO DAILY April 26, 2020 12:00am August 23, 2020 10:22am PARoxetine hydrochloride 10 mg oral tablet (20 sources) Serotonin Reuptake Inhibitor Start: End: take 1 tablet by mouth once daily Paroxetine Hcl 10 MG tablet Discontinued 10 mg PO DAILY July 22, 2018 12:00am February 17, 2019 4:36pm DEPRESSION phenazopyridine hydrochloride 200 mg oral tablet (20 sources) Start: End: take 1 tablet by mouth three times daily as needed for muscle spasms Phenazopyridine 200 MG tablet Discontinued 200 mg PO 3 TIMES DAILY NEEDED as needed for Bladder Spasms 30 7 0 February 25, 2019 12:00am March 03, 2019 12:00am March 04, 2019 12:07am phentermine hydrochloride 37.5 mg oral capsule (1 source) Sympathomimetic Amine Anorectic Start: take 1 tablet by mouth once daily ADIPEX-P 37.5 MG CAPS One tablet by mouth daily PHENTERMINE HCL [id number] Amparo Hitchcock MD potassium chloride 20 meq powder for oral solution (20 sources) Start: 025 End: potassium chloride (KLOR-CON) 20 mEq packet Take 20 mEq by mouth as needed. 11/11/2024 06/07/2025 Discontinued predniSONE 50 mg oral tablet (5 sources) Corticosteroid Start: End: PREDNISONE 50 MG TABS 1 tablet every morning PREDNISONE [id number] Raghav IRENE pregabalin 75 mg oral capsule (14 sources) Start: End: pregabalin (LYRICA) 75 mg capsule Indications: fibromyalgia [...] on pill 3 times per day thereafter Gtvrojja-Po-Apy-Fe-FA ( FORMULA) ORAL Tab (20 sources) Start: take 1 tablet by mouth once daily Ghknshan-Tf-Zst-Fe-FA ( FORMULA) ORAL Tab Take 1 tablet by mouth once daily. 0 03/14/2011 Active Comment on above: Take 1 tablet by ishmael th once daily. Qisffkfo-Tzj-Up-Fa 1 mg capsule (9 sources) Start: End: take 1 capsule by mouth once daily Tovittfp-Pvd-Qz-Fa 1 mg capsule Discontinued 1 NMA PO DAILY April 26, 2020 12:00am August 05, 2023 11:25am promethazine hydrochloride 25 mg oral tablet (20 sources) Phenothiazine Start: End: take 1 tablet by mouth every six hours as needed for nausea Promethazine 25 MG tablet Discontinued 25 mg PO EVERY 6 HOURS NEEDED as needed for Nausea 10 July 11, 2020 12:00am August 10, 2022 3:08pm 24 hr propranolol hydrochloride 60 mg extended release oral capsule (20 sources) beta-Adrenergic [place] Start: End: take 1 capsule by mouth once daily Propranolol 60 mg capsule,extended release 24 hr Discontinued 60 mg PO DAILY February 21, 2021 12:00am January 01, 2022 4:29pm rizatriptan 10 mg oral tablet (20 sources) Serotonin-1b and Serotonin-1d Receptor Agonist Start: End: take 1 tablet by mouth once Rizatriptan 10 mg tablet Discontinued 10 mg PO ONCE December 28, 2022 1:00am December 10, 2023 10:59am migraines Start: 08-07-2022 End: 08-10-2022 take 1 tablet [...] 1 {tbl} PO TWICE A DAY 6 0 February 04, 2024 12:00am March 09, 2024 2:58pm Start: 02-04-2024 take 1 tablet by ishmael th twice daily Sulfamethoxazole-Trimethoprim Active 1 T ABLET PO TWICE A DAY 6 February 04, 2024 12:00am Start: 02-25-2019 End: 02-28-2019 Sulfamethoxazole-Trimethopri m 1 TABLET tablet Discontinued 1 {tbl} PO TWICE A DAY 6 3 February 25, 2019 12:00am February 27, 2019 12:00am February 28, 2019 12:09am Start: 02-25-2019 End: 02-28-2019 take 1 tablet by mouth twice daily Sulfamethoxazole-Trimethoprim Discontinu ed 1 TABLET PO TWICE A DAY 6 February 25, 2019 12:00am February 28, 2019 [...] repeat after 2 hours. Take by mouth. tiZANidine 4 mg oral tablet (20 sources) Central alpha-2 Adrenergic Agonist Start: End: take 1 tablet by mouth every eight hours as needed for muscle spasms tiZANidine (ZANAFLEX) 4 mg tablet Indications: Flank pain Take 1 tablet by mouth every 8 hours as needed (muscle spasms). 60 tablet 04/12/2025 06/07/2025 Discontinued Start: 08-01-2022 take 1 tablet by ishmael th every [...] as needed for muscle spasms TIZANIDINE HCL [id number] Sammy Victor [employer] Start: 04-29-2017 End: 08-10-2022 take 1 tablet by mouth once daily as needed for muscle spasms Tizanidine 4 MG tablet Discontinued 4 mg PO DAILY NEEDED as needed for Muscle Spasm April 29, 2017 12:00am August 10, 2022 3:09pm Start: 04-26-2017 End: 05-06-2017 ZANAFLEX 2 MG CAPS Take 1-2 tablets every 8 hours as needed. TIZANIDINE HCL [id number] Santana IRENE Comment on above: Take 1 tablet by ishmael th every 8 hours as needed. tranexamic acid 650 mg oral tablet (20 sources) Antifibrinolytic Agent Start: 02-22-20 End: 01-01-20 take 1 tablet by mouth twice daily Tranexamic Acid 650 mg tablet Discontinued 650 mg PO TWICE A DAY February 21, 2021 12:00am January 01, 2022 4:30pm 24 hr divalproex sodium 500 mg extended release oral tablet (6 sources) Mood Stabilizer, Anti-epileptic Agent Start: 03-09-20 End: 06-07-20 divalproex ER (DEPAKOTE ER) 500 mg 24 hr tablet Indications: Intractable chronic migraine without aura and with status migrainosus Depakote ER 500 mg one tablet twice a day for the first five days, then take take one tablet once a day for the next five days, then stop using depakote 15 tablet 03/09/2025 06/07/2025 Discontinued ZOLMitriptan 5 mg oral tablet (20 sources) Serotonin-1b and Serotonin-1d Receptor Agonist Start: 02-01-20 End: 09-09-20 take 1 tablet by mouth once daily [...] 14 06-07-2014 Chronic Blindness and vision defects (10 sources) Subjective visual disturbance; Translations: [Unspecified subjective visual disturbances] 02-04-2024 Episodic Delirium, dementia, and amnestic and other cognitive disorders (13 sources) Postconcussion syndrome; Translations: [Postconcussional syndrome] Chronic Diabetes mellitus with complications (20 sources) Type 2 diabetes mellitus; Translations: [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 kidney complication] Onset: 07-04-20 Resolved : 09-04-2010-09-2019 Chronic Diabetes mellitus without [...] The patient is not on statin therapy. Fluid and electrolyte disorders (20 sources) Dehydration; Translations: [Dehydration] Onset: 12-11-1912-11-2024 Episodic Genitourinary symptoms and ill-defined conditions (20 sources) Microalbuminuria; Translations: [Proteinuria, unspecified] Onset: 09-30-20 Resolved : 09-04-2009-30-2018 Episodic Headache; including migraine (20 sources) Migraine; Translations: [Migraine, unspecified, not intractable, without status migrainosus] Onset: 09-04-20 Chronic Headache; including migraine (20 sources) Headache; Translations: [Headache] Onset: 09-04-20 Resolved : 09-04-20 Episodic Headache; including migraine (1 source) Headache; including migraine; Translations: [Headache, unspecified] Onset: 12-04-19 Immunizations and screening for infectious disease (4 sources) Patient encounter status; Translations: [Encounter for screening for COVID-19] 06-03-2024 Episodic Intracranial injury (20 sources) Concussion with loss of consciousness of unspecified duration, initial encounter; Translations: [Concussion injury of brain] Onset: 09-28-20 16 Resolved : 09-09-20 17 09-28-2016 Episodic Malaise and fatigue (20 sources) Fatigue; Translations: [Other fatigue] Episodic Miscellaneous mental health disorders (1 source) Primary insomnia; Translations: [Primary insomnia] 09-24-2024 Chronic Mood disorders (2 sources) Recurrent major depressive episodes, moderate ; Translations: [Major depressive disorder, recurrent, moderate] Chronic Osteoarthritis (5 sources) Osteoarthritis of joint of left shoulder region; Translations: [Primary osteoarthritis, left shoulder] Onset: 03-29-20 22 Chronic Other bone disease and musculoskeletal deformities (20 sources) Segmental and somatic dysfunction of cervical region; Translations: [Nonallopathic lesions, cervical region] Onset: 06-01-20 Episodic Other bone disease and musculoskeletal deformities (20 sources) Segmental and somatic dysfunction of lumbar region; Translations: [Nonallopathic lesions, lumbar region] Onset: 06-01-20 25 Episodic Other bone disease and musculoskeletal deformities (20 sources) Segmental and somatic dysfunction of pelvic region; Translations: [Nonallopathic lesions, pelvic region] Onset: 06-01-20 25 Episodic Other bone disease and musculoskeletal deformities (20 sources) Segmental and somatic dysfunction of thoracic region; Translations: [Nonallopathic lesions, thoracic region] Onset: 06-01-20 Episodic Other circulatory disease (1 source) Elevated [...] Episodic Other ear and sense organ disorders (12 sources) Otitis externa; Translations: [Unspecified otitis externa, [...] classified] Onset: 01-18-2005-15-2020 Chronic Other liver diseases (20 sources) Non-alcoholic fatty liver disease without non-alcoholic steatohepatitis; Translations: [Fatty (change of) liver, not elsewhere classified] Onset: 01-18-20 23 12-27-2022 Chronic Other lower respiratory disease (20 sources) [...] sense organs] Episodic Other nervous system disorders (13 sources) Facial paresthesia; Translations: [Paresthesia of skin] 08-09-2023 Episodic Other nervous system disorders (13 sources) Paresthesia of left lower limb; Translations: [Paresthesia of skin] 08-09-2023 Episodic Other nervous system disorders (13 sources) Paresthesia of left upper limb; Translations: [Paresthesia of skin] 08-09-2023 Episodic Other nervous system disorders (6 sources) Paresthesia of skin; Translations: [Disturbance of skin sensation] 08-07-2023 Episodic Other non-traumatic joint disorders (20 sources) Pain in left shoulder; Translations: [Left shoulder pain] Onset: 01-03-20 23 08-10-2022 Episodic Other nutritional; endocrine; and metabolic disorders (20 sources) Obesity; Translations: [Obesity, unspecified] 08-23-2020 Chronic Other nutritional; endocrine; and metabolic disorders (2 sources) Severe obesity; Translations: [Morbid (severe) obesity due to excess calories] Chronic Other nutritional; endocrine; and metabolic disorders (17 sources) Obesity, unspecified; Translations: [Obesity, unspecified] Chronic Other screening for suspected conditions (not mental disorders or infectious disease) (20 sources) Prolonged QT interval; Translations: [Abnormal electrocardiogram [ECG] [EKG]] Onset: 03-31-20 20 03-31-2020 Episodic Comment on above: The patient is EKG i n office today shows a normal QT interval with normal sinus rhythm and nonspecific T wave changes and poor R wave progression low voltage consistent with her body habitus. The previous prolonged QT interval has resolved. Other upper respiratory infections (3 sources) Chronic sinusitis; Translations: [Chronic sinusitis, unspecified] Onset: 12-11-19 25 12-11-2024 Chronic Residual codes; unclassified (20 sources) Obstructive sleep apnea syndrome; Translations: [Obstructive sleep apnea (adult) (pediatric)] Onset: 07-21-20 18 08-01-2020 Chronic Comment on above: VPAP Residual codes; unclassified (6 sources) Obstructive sleep apnea (adult) (pediatric); Translations: [Obstructive sleep apnea (adult)(pediatric)] Onset: 04-10-2012-06-2022 Chronic Residual codes; unclassified (1 source) Transient alteration of awareness; Translations: [Transient alteration of awareness] Episodic Residual codes; unclassified (1 source) Amnesia; Translations: [Other amnesia] 06-07-2023 Episodic Spondylosis; intervertebral disc disorders; other back problems (20 sources) Lumbar disc prolapse with radiculopathy; Translations: [Disorder of lumbar disc] Onset: 05-06-20 Resolved : 01-24-2006-24-2017 Chronic Syncope (20 sources) Near syncope; Translations: [Syncope and collapse] 03-01-2019 Episodic Unclassified (20 sources) Body mass index 40+ - severely obese; Translations: [Morbid (severe) obesity due to excess calories] Onset: 09-09-20 Resolved : 09-04-2009-09-2017 Chronic Unclassified (2 sources) Chronic pain of left upper limb 01-22-2025 Unclassified (1 source) Low back pain, unspecified; Translations: [Low back pain, unspecified] Onset: 03-22-20 Unclassified (1 source) Cough, unspecified; Translations: [Cough, unspecified] Onset: 08-13-20 24 Urinary tract infections (20 sources) Urinary tract infectious disease; Translations: [Urinary tract infection, site not specified] 08-10-2022 Episodic Past or Other Problems Problem Classification Problem Date Documented Da te Episodic/Chronic Allergic reactions (20 sources) Contact dermatitis; Translations: [Unspecified contact dermatitis, unspecified cause] Onset: 03-26-2007 Resolved: 01-23-2010 01-23-2010 Episodic Calculus of urinary tract (20 sources) Kidney stone; Translations: [Calculus of kidney] Onset: 09-04-2022 09-04-2022 Episodic Chronic obstructive pulmonary disease and bronchiectasis (4 sources) Bronchitis; Translations: [Bronchitis, not specified as acute or chronic] Onset: 07-03-2024 07-03-2024 Episodic Conditions associated with dizziness or vertigo (20 sources) Lightheadedness; Translations: [Dizziness and giddiness] Onset: 09-14-2022 Episodic Contraceptive and procreative management (20 sources) IUD contraception; Translations: [Presence of (intrauterine) contraceptive device] Onset: 09-09-2017 09-09-2017 Episodic E Codes: Fall (20 sources) Fall; Translations: [Unspecified fall, initial encounter] Onset: 09-04-2022 Resolved: 09-04-2022 05-06-2020 Episodic Hypertension complicating ; childbirth and the puerperium (20 sources) Transient hypertension of ; Translations: [Gestational [-induced] hypertension without significant proteinuria, unspecified trimester] Onset: 06-19-2006 Resolved: 07-02-2006 07-02-2006 Episodic Nausea and vomiting (20 sources) Nausea, vomiting and diarrhea; Translations: [Nausea with vomiting, unspecified] Onset: 11-22-2021 Resolved: 09-04-2022 09-25-2019 Episodic Nonspecific chest pain (20 sources) Chest pain; Translations: [Chest pain, unspecified] Onset: 09-04-2022 Resolved: 09-04-2022 03-24-2020 Episodic Other aftercare (1 source) assisted (current) use of insulin; Translations: [Type 2 diabetes mellitus with microalbuminuria, with long-term current use of insulin (HCC)] Onset: 10-09-2019 Episodic Other and unspecified benign neoplasm (20 sources) Benign neoplasm of skin of upper limb; Translations: [Other benign neoplasm of skin of unspecified upper limb, including shoulder] Onset: 03-26-2007 Resolved: 01-23-2010 01-23-2010 Episodic Other bone disease and musculoskeletal deformities (20 sources) Segmental and somatic dysfunction; Translations: [Segmental and somatic dysfunction of cervical region] Onset: 04-17-2022 Resolved: 09-04-2022 08-21-2022 Episodic Other bone disease and musculoskeletal deformities (20 sources) Pain of left shoulder blade; Translations: [Other specified disorders of bone, shoulder] Onset: 09-04-2022 Resolved: 09-04-2022 08-10-2022 Episodic Other congenital anomalies (20 sources) Congenital anomaly of skin; Translations: [Other specified congenital malformations of skin] Onset: 03-26-2007 Resolved: 01-23-2010 01-23-2010 Chronic Other connective tissue disease (20 sources) Adhesive capsulitis of left shoulder; Translations: [Adhesive capsulitis of left shoulder] Onset: 01-02-2023 Episodic Other connective tissue disease (20 sources) Muscle pain; Translations: [Myalgia, unspecified site] Onset: 09-04-2022 Resolved: 09-04-2022 03-07-2022 Episodic Other connective tissue disease (1 source) Myalgia, other site; Translations: [Myofascial pain] Onset: 03-29-2022 Episodic Other connective tissue disease (1 source) Neuralgia and neuritis, unspecified; Translations: [Neuropathic pain] Onset: 03-29-2022 Episodic Other inflammatory condition of skin (20 sources) Lichen simplex chronicus; Translations: [Lichen simplex chronicus] Onset: 03-26-2007 Resolved: 01-23-2010 01-23-2010 Episodic Other injuries and conditions due to external causes (20 sources) Closed injury of head; Translations: [Unspecified injury of head, initial encounter] Onset: 11-27-2022 Resolved: 12-09-2023 11-24-2022 Episodic Other injuries and conditions due to external causes (1 source) Unspecified injury of head, initial encounter; Translations: [Unspecified injury of head, initial encounter] Onset: 11-18-2024 Episodic Other liver diseases (20 sources) Steatosis of liver; Translations: [Fatty (change of) liver, not elsewhere classified] Onset: 07-21-2018 Resolved: 08-05-2024 08-17-2020 Chronic Other lower respiratory disease (20 sources) Dyspnea; Translations: [Dyspnea, unspecified] Onset: 09-04-2022 Resolved: 09-04-2022 Episodic Other lower respiratory disease (1 source) Wheezing; Translations: [Wheezing] Onset: 07-03-2024 Episodic Other nervous system disorders (20 sources) Numbness of upper limb; Translations: [Anesthesia of skin] Onset: 10-10-2021 Resolved: 09-04-2022 08-10-2022 Episodic Other nervous system disorders (20 sources) Paresthesia; Translations: [Paresthesia of skin] Onset: 01-17-2023 Resolved: 12-09-2023 01-17-2023 Episodic Other non-traumatic joint disorders (20 sources) Shoulder pain; Translations: [Pain in left shoulder] Onset: 01-16-2022 Resolved: 12-09-2023 09-04-2022 Episodic Other non-traumatic joint disorders (20 sources) Chronic pain of left upper limb; Translations: [Pain in left shoulder] Onset: 01-02-2023 Episodic Other nutritional; endocrine; and metabolic disorders (20 sources) Morbid obesity; Translations: [Morbid (severe) obesity due to excess calories] Onset: 01-23-2010 Resolved: 06-07-2025 02-16-2010 Chronic Other nutritional; endocrine; and metabolic disorders (20 sources) History of diabetes mellitus type 2; Translations: [Personal history of other endocrine, nutritional and metabolic disease] Onset: 09-04-2022 Resolved: 09-04-2022 09-04-2022 Episodic Other and delivery including normal (20 sources) Normal in primigravida; Translations: [Encounter for supervision of normal first , unspecified trimester] Onset: 11-09-2005 Resolved: 07-02-2006 07-02-2006 Episodic Other skin disorders (20 sources) Acne; Translations: [Other acne] Onset: 03-26-2007 02-16-2010 Episodic Other skin disorders (20 sources) Disorder of skin appendage; Translations: [Other hair color and hair shaft abnormalities] Onset: 03-26-2007 Resolved: 01-23-2010 01-23-2010 Episodic Other upper respiratory infections (20 sources) Upper respiratory infection; Translations: [Acute upper respiratory infection, unspecified] Onset: 09-04-2022 Resolved: 09-04-2022 02-04-2024 Episodic Spondylosis; intervertebral disc disorders; other back problems (20 sources) Low back pain; Translations: [Backache] Onset: 04-26-2017 Resolved: 09-04-2022 04-26-2017 Episodic Sprains and strains (20 sources) Strain of muscle, fascia and tendon of lower back, subsequent encounter; Translations: [Strain of muscle, fascia and tendon of lower back, initial encounter] Onset: 07-02-2017 Resolved: 09-04-2022 08-06-2017 Episodic Superficial injury; contusion (20 sources) Contusion of knee; Translations: [Contusion of right knee, initial encounter] Onset: 09-04-2022 Resolved: 09-04-2022 11-24-2022 Episodic Unclassified (20 sources) Left upper quadrant abdominal pain 08-10-2022 Unclassified (20 sources) History of stent into kidney 05-30-2022 Comment on above: 2018 Unclassified (2 sources) Patient encounter status 12-12-2024 Viral infection (20 sources) Viral disease; Translations: [Viral infection, unspecified] Onset: 09-04-2022 Resolved: 09-04-2022 07-12-2020 Episodic Results Test Name Value Interpretation Reference Range Facility CBC, Employeeon 06-05-2025 Absolute Lymph 2.43 X10 3/uL Normal 0.83-4.51 [facility] Comment on above: Performed By: #### L 100.0200, L400.0100, L500.2900 #### [facility] [address] [place], [address] Absolute Neut 6.3 X10 3/uL Normal 2.0-7.7 [facility] Comment on above: Performed By: #### L 100.0200, L400.0100, L500.2900 #### [facility] [address] [place], [address] Basophils/100 WBC (Bld) 0.9 % Normal 0-[address] [facility] Comment on above: Performed By: #### L 100.0200, L400.0100, L500.2900 #### [facility] [address] [place], [address] Eosinophils/100 WBC (Bld) 1.8 % Normal 0-5 [facility] Comment on above: Performed By: #### L 100.0200, L400.0100, L500.2900 #### [facility] [address] [place], [address] Erythrocyte distribution width (RBC) [Ratio] 14.5 % Normal 11.6-14.6 [facility] Comment on above: Performed By: #### L 100.0200, L400.0100, L500.2900 #### [facility] [address] [place], [address] Hematocrit (Bld) [Volume fraction] 39.2 % Normal 37-47 [facility] Comment on above: Performed By: #### L 100.0200, L400.0100, L500.2900 #### [facility] [address] [place], [address] Hemoglobin (Bld) [Mass/Vol] 13.5 g/dL Normal 12.0-15.0 [facility] Comment on above: Performed By: #### L 100.0200, L400.0100, L500.2900 #### [facility] [address] [place], [address] Lymphocytes/100 WBC (Bld) 25.5 % Normal 19-41 [facility] Comment on above: Performed By: #### L 100.0200, L400.0100, [id number] #### [facility] [address] [place], [address] MCH (RBC) [Entitic mass] 32.4 pg High 27.0-32.0 [facility] Comment on above: Performed By: #### L 100.0200, L400.0100, L500.2900 #### [facility] [address] [place], [address] MCHC (RBC) [Mass/Vol] 34.4 g/dL Normal 32-36 [facility] Comment on above: Performed By: #### L 100.0200, L400.0100, L500.2900 #### [facility] [address] [place], [address] MCV (RBC) [Entitic vol] 94.0 fL Normal 81-[address] [facility] Comment on above: Performed By: #### L 100.0200, L400.0100, L500.2900 #### [facility] [address] [place], [address] Monocytes/100 WBC (Bld) 3.6 % Normal 0-[address] [facility] Comment on above: Performed By: #### L 100.0200, L400.0100, [id number] #### [facility] [address] [place], [address] Neutrophils/100 WBC (Bld) 66.2 % Normal 47-70 [facility] Comment on above: Performed By: #### L 100.0200, L400.0100, [id number] #### [facility] [address] [place], [address] NRBC # 0.00 10 3/uL Normal 0-5 [facility] Comment on above: Performed By: #### L 100.0200, L400.0100, L500.2900 #### [facility] [address] [place], [address] Nucleated RBC (Bld) [#/Vol] 0 10*3/uL Normal 0-5 [facility] Comment on above: Performed By: #### L 100.0200, L400.0100, [id number] #### [facility] [address] [place], [address] Platelet mean volume (Bld) [Entitic vol] 9.6 fL Normal 6.2-12.0 [facility] Comment on above: Performed By: #### L 100.0200, L400.0100, L500.2900 #### [facility] [address] [place], [address] Platelets (Bld) [#/Vol] 192 10*3/uL Normal 150-450 [facility] Comment on above: Performed By: #### L 100.0200, L400.0100, [id number] #### [facility] [address] [place], [address] RBC (Bld) [#/Vol] 4.17 10*6/uL Low 4.2-5.4 [facility] Comment on above: Performed By: #### L 100.0200, L400.0100, [id number] #### [facility] [address] [place], [address] RDW SD 49.7 fl High 35.1-43.9 [facility] Comment on above: Performed By: #### L 100.0200, L400.0100, L500.2900 #### [facility] [address] [place], [address] WBC (Bld) [#/Vol] 9.5 10*3/uL Normal 4.4-11.0 [facility] Comment on above: Performed By: #### L 100.0200, L400.0100, [id number] #### [facility] [address] [place], [address] Employee Profileon 5 LDH 188 U/L Normal 84-246 [facility] Comment on above: Performed By: #### L 100.0200, L400.0100, [id number] #### [facility] [address] [place], [address] Phosphate [Mass/Vol] 2.2 mg/dL Low 2.7-4.5 [facility] Comment on above: Performed By: #### L 100.0200, L400.0100, L500.2900 #### [facility] [address] [place], [address] URIC 6.9 mg/dL High 2.6-6.0 [facility] Comment on above: Result Comment: The drugs N-Acetylcysteine and Metamizole may falsely depress this assay. Performed By: #### L 100.0200, L400.0100, L500.2900 #### [facility] [address] [place], [address] Urinalysis, Employeeon 06-05 BILIRUBIN URINE Negative Normal Negative [facility] Comment on above: Order Comment: Urine , Random Performed By: #### L 100.0200, L400.0100, L500.2900 #### [facility] [address] [place], [address] Clarity (U) Sl. Cloudy Normal Clear [facility] Comment on above: Order Comment: Urine , Random Performed By: #### L 100.0200, L400.0100, L500.2900 #### [facility] [address] [place], [address] Color (U) Yellow Normal Yellow [facility] Comment on above: Order Comment: Urine , Random Performed By: #### L 100.0200, L400.0100, L500.2900 #### [facility] [address] [place], [address] GLUCOSE, UR Normal Normal Normal [facility] Comment on above: Order Comment: Urine , Random Performed By: #### L 100.0200, L400.0100, L500.2900 #### [facility] [address] [place], [address] KETONE UR Negative Normal Negative [facility] Comment on above: Order Comment: Urine , Random Performed By: #### L 100.0200, L400.0100, L500.2900 #### [facility] [address] [place], [address] LEUK ESTERASE 500 /ul Abnormal Negative [facility] Comment on above: Order Comment: Urine , Random Performed By: #### L 100.0200, L400.0100, L500.2900 #### [facility] [address] [place], [address] Nitrite Ql (U) Negative Normal Negative [facility] Comment on above: Order Comment: Urine , Random Performed By: #### L 100.0200, L400.0100, L500.2900 #### [facility] [address] [place], [address] OCCULT BLOOD-UR 25 /ul Abnormal Negative [facility] Comment on above: Order Comment: Urine , Random Performed By: #### L 100.0200, L400.0100, L500.2900 #### [facility] [address] [place], [address] pH UR 6.0 Normal 5.0 - 8.0 [facility] Comment on above: Order Comment: Urine , Random Performed By: #### L 100.0200, L400.0100, L500.2900 #### [facility] [address] [place], [address] PROT DIPSTX 100 mg/dl Abnormal Negative [facility] Comment on above: Order Comment: Urine , Random Performed By: #### L 100.0200, L400.0100, L500.2900 #### [facility] [address] [place], [address] SP.GR. DIPSTX 1.015 Normal 1.002-1.030 [facility] Comment on above: Order Comment: Urine , Random Performed By: #### L 100.0200, L400.0100, L500.2900 #### [facility] [address] [place], [address] UROBILI Normal Normal Normal [facility] Comment on above: Order Comment: Urine , Random Performed By: #### L 100.0200, L400.0100, L500.2900 #### [facility] [address] [place], [address] Chiropractic Reporton 2024 Chiropractic Report [facility] [address] [place] [address] OFFICE VISIT Date of Service: 06/01/25 MR#: [id number] Acct: [id number] Name: TORI GRAY Rep #: [id number] : 1980 Provider: CONCEPCIÓN Montgomery Age/Sex: 44/F Location: [facility] Status: Signed Intake Vital Signs 03/22/25 09:08 05/06/25 10:04 Height 5 ft 7 in 5 ft 7 in Weight: 275 lb BMI 43.0 Intake Visit Reasons: Back pain Chief Complaint: low back pain Is patient in pain?: Yes (low back ) Pain scale (1-10): 6 Allergies Corticosteroids (Glucocorticoids) (steroids) Allergy (Verified 06/01/25 10:46) Hives lidocaine Adverse Reaction (Intermediate, Verified 06/01/25 10:46) Hives Medications ???Medication ???Instructions ???Recorded ???Confirmed ???Type blood sugar diagnostic (Blood #10 ea 04/26/20 06/01/25 History Glucose Test strips) ipratropium bromide 21 mcg (0.03 2 spray intranasal BID allergies 1 06/01/25 History %) nasal spray albuterol sulfate 90 mcg/actuation 2 puff inhalation Q4H PRN 06/01/25 History aerosol inhaler shortness of breath or wheezing fexofenadine 180 mg tablet 180 mg PO DAILY allergies 08/10/22 06/01/25 History (Allergy Relief (fexofenadine)) levonorgestrel 17.5 mcg/24 hr (up 1 device intrauterine ONCE 08/10/22 06/01/25 History to 5 yrs) 19.5mg intrauterine control device tizanidine 4 mg tablet 4 mg PO Q8H PRN Muscle Spasm 08/1006/01/25 History omeprazole 20 mg capsule,delayed 20 mg PO DAILY PRN gerd 08/16/22 0 06/01/25 History release topiramate 100 mg tablet 100 mg PO BID seizures 08/16/22 History fluoxetine 20 mg capsule 20 mg PO DAILY mental health 12/2806/01/25 History gabapentin 300 mg capsule 300 mg PO BID nerve pain 12/28/22 06/01/25 History lisinopril 10 mg tablet 10 mg PO DAILY blood pressure 12/0606/01/25 History ondansetron HCl 4 mg tablet 4 mg PO Q8H PRN nausea 12/28/22 History rimegepant 75 mg disintegrating 75 mg PO DAILY PRN migraine 06/01/25 History tablet (Nurtec ODT) headache semaglutide 0.25 mg or 0.5 mg (2 0.5 mg subcut QWEEK 10/16/2406/01 History mg/3 mL) subcutaneous pen injector (Ozempic) potassium chloride 20 mEq oral 20 meq PO BID 7 days #30 ea 06/01/25 Rx packet [facility] Medical History Abnormal ECG Prolonged Q-T interval [...] low back, left neck pain Visit Number: 6 Details: Tori is a 44 y/o F here today to f/u with ongoing neck and low back pain. Pt. continues to c/o increased pain in her left neck/shoulder/upper back. The pain extends into her left t (more content not included)... Normal [facility] Orthopedic Visit Reporton Orthopedic Visit Report [facility] [address] [place] [address] OFFICE VISIT Date of Service: 05/06/25 MR#: [id number] Acct: [id number] Name: TORI GRAY Rep #: [id number] : 1980 Provider: Dr. Brett kessler MD Age/Sex: 44/F Location: [facility] Status: Signed Intake Vital Signs 03/22/25 09:08 05/06/25 10:04 Height 5 ft 7 in 5 ft 7 in Weight: 275 lb BMI 43.0 Intake Visit Reasons: LEFT SHOULDER Chief Complaint: Left shoulder MRI review Accompanied by: Self Is patient in pain?: Yes Pain scale (1-10): 7 Allergies Corticosteroids (Glucocorticoids) (steroids) Allergy (Verified 05/06/25 10:08) Hives lidocaine Adverse Reaction (Intermediate, Verified 05/06/25 10:08) Hives Medications ???Medication ???Instructions ???Recorded ???Confirmed ???Type blood sugar diagnostic (Blood #10 ea 04/26/20 05/06/25 History Glucose Test strips) ipratropium bromide 21 mcg (0.03 2 spray intranasal BID allergies 1 05/06/25 History %) nasal spray albuterol sulfate 90 mcg/actuation 2 puff inhalation Q4H PRN 05/06/25 History aerosol inhaler shortness of breath or wheezing fexofenadine 180 mg tablet 180 mg PO DAILY allergies 08/10/22 05/06/25 History (Allergy Relief (fexofenadine)) levonorgestrel 17.5 mcg/24 hr (up 1 device intrauterine ONCE 08/10/22 05/06/25 History to 5 yrs) 19.5mg intrauterine control device tizanidine 4 mg tablet 4 mg PO Q8H PRN Muscle Spasm 08/1005/06/25 History omeprazole 20 mg capsule,delayed 20 mg PO DAILY PRN gerd 08/16/22 0 05/06/25 History release topiramate 100 mg tablet 100 mg PO BID seizures 08/16/22 History fluoxetine 20 mg capsule 20 mg PO DAILY mental health 12/2805/06/25 History gabapentin 300 mg capsule 300 mg PO BID nerve pain 12/28/22 05/06/25 History lisinopril 10 mg tablet 10 mg PO DAILY blood pressure 12/0605/06/25 History ondansetron HCl 4 mg tablet 4 mg PO Q8H PRN nausea 12/28/22 History rimegepant 75 mg disintegrating 75 mg PO DAILY PRN migraine 05/06/25 History tablet (Nurtec ODT) headache semaglutide 0.25 mg or 0.5 mg (2 0.5 mg subcut QWEEK 10/16/2405/06 History mg/3 mL) subcutaneous pen injector (Ozempic) potassium chloride 20 mEq oral 20 meq PO BID 7 days #30 ea 05/06/25 Rx packet Have you fallen in the past year?: No PFSH Medical History Abnormal ECG Prolonged Q-T [...] provided and the decisions made by me, (more content not included)... Normal [facility] Chiropractic Reporton 2024 Chiropractic Report [facility] [address] [place] [address] OFFICE VISIT Date of Service: 04/21/25 MR#: [id number] Acct: [id number] Name: TORI GRAY Rep #: [id number] : 1980 Provider: CONCEPCIÓN Montgomery Age/Sex: 44/F Location: [facility] Status: Signed Intake Vital Signs 03/22/25 09:08 Height 5 ft 7 in Intake Visit Reasons: Back pain Chief Complaint: Low back pain Is patient in pain?: Yes (low back) Pain scale (1-10): 2 Allergies Corticosteroids (Glucocorticoids) (steroids) Allergy (Verified 04/21/25 10:22) Hives lidocaine Adverse Reaction (Intermediate, Verified 04/21/25 10:22) Hives Medications ???Medication ???Instructions ???Recorded ???Confirmed ???Type [...] 7 days #30 ea 04/05/25 Rx packet [facility] Medical History Abnormal ECG [...] low back, left neck pain Visit Number: 5 Details: Tori is a 44 y/o F here today to f/u with ongoing neck and low back pain. Pt. continues to c/o increased pain in her left neck/shoulder/upper back. The pain extends into her left trap and under her shoulder blade. She has an appointment w (more content not included)... Normal [facility] Magnetic resonance imaging r eportOrdered By: Salazar Tyson on 04-19-2025 Study report [facility] Imaging Services [address] [place] [address] Upper Ext Joint Only(Routine) MR#: [id number] Acct: [id number] Name: TORI GRAY Rep #: [id number] : 1980 F 44 From: Moncho Tyson MD PCP: Dr. Ivette Grimes MD Status: REG C LI Study:Upper Ext Joint Only(Routine) Date of Exam: 04/17/25 Exam# [id number] Ordering Dr: Brett Quiroga MD PROCEDURE: UPPER EXT JOINT ONLY(ROUTINE) 04/17/2025 REASON FOR EXAM: PAIN, WEAKNESS, FAILED PT TECHNIQUE: T1, T2, PD, MRI of the left upper Extremity. Multiplanar and multisequence images were obtained without IV contrast administration. COMPARISON: COMPARISON : March 11, 2025 x-ray FINDINGS: Bone Marrow: There is no bony contusion or occult fracture. AC joint: The AC joint is aligned. There is no evidence of AC joint separation. There is a type 2 acromion. Rotator cuff: There is no muscular atrophy. There is mild distal supraspinatus tendinopathy without full-thickness tear or retraction. The infraspinatus, subscapularis, and teres minor appear intact. Labrum: There is no visible labral tear. Biceps tendon: The biceps tendon is present within the biceps tendon groove. The biceps tendon anchors appear intact. Effusion: There is a trace joint effusion. There is a small amount of fluid in the subacromial subdeltoid bursa, with bursitis. Soft Tissues: Adjacent soft tissues are unremarkable. MRI/Upper Ext Joint Only(Routine) IMPRESSION: There is mild distal supraspinatus tendinopathy without full-thickness tear or retraction. There is a trace joint effusion. There is a small amount of fluid in the subacromial subdeltoid bursa, with bursitis. Reading Location: [facility] CC: Dr. Brett Quiroga MD; Dr. Ivette Grimes MD ~ Contract Preparer: Signed [facility] Upper Ext Joint Only(Routine )on 04-17-2025 Upper Ext Joint Only(Routine) [facility] Imaging Services [address] [place] [address] Upper Ext Joint Only(Routine) MR#: [id number] Acct: [id number] Name: TORI GRAY Rep #: [id number] : 1980 F 44 From: Salazar Tyson MD PCP: Dr. Ivette Grimes MD Status: REG CLI Study: Upper Ext Joint Only(Routine) Date of Exam: 0 04/17/25 Exam# [id number] Ordering Dr: Brett Quiroga MD PROCEDURE: UPPER EXT JOINT ONLY(ROUTINE) 04/17/2025 REASON FOR EXAM: PAIN, WEAKNESS, FAILED PT TECHNIQUE: T1, T2, PD, MRI of the left upper Extremity. Multiplanar and multisequence images were obtained without IV contrast administration. COMPARISON: COMPARISON : March 11, 2025 x-ray FINDINGS: Bone Marrow: There is no bony contusion or occult fracture. AC joint: The AC joint is aligned. There is no evidence of AC joint separation. There is a type 2 acromion. Rotator cuff: There is no muscular atrophy. There is mild distal supraspinatus tendinopathy without full-thickness tear or retraction. The infraspinatus, subscapularis, and teres minor appear intact. Labrum: There is no visible labral tear. Biceps tendon: The biceps tendon is present within the biceps tendon groove. The biceps tendon anchors appear intact. Effusion: There is a trace joint effusion. There is a small amount of fluid in the subacromial subdeltoid bursa, with bursitis. Soft Tissues: Adjacent soft tissues are unremarkable. MRI/Upper Ext Joint Only(Routine) IMPRESSION: There is mild distal supraspinatus tendinopathy without full-thickness tear or retraction. There is a trace joint effusion. There is a small amount of fluid in the subacromial subdeltoid bursa, with bursitis. Reading Location: [facility] CC: Dr. Brett Quiroga MD; Dr. Ivette Grimes MD Contract Preparer: Signed Normal [facility] TORI G[facility] ([id number]) 1980 F Date Time Provider Department 04/07/25 IVETTE GRIMES During your visit today, we [...] tablet by mouth once daily. - Ipratropium [place] (ATROVENT) 21 mcg (0.03 %) nasal spray [...] Each by INTRAUTERINE route as directed. - [place]-3 Fatty Acids (FISH OIL) 500 mg cap Take 1 capsule by mouth once daily. - blood sugar diagnostic (BLOOD GLUCOSE TEST) test strip Test blood sugar(s) 1 times daily. Dx: Type 2 DM - Controlled E11.9 Insulin: Yes - Lancets lancets Test blood sugar(s) 1 times daily. Dx: Type 2 DM - Controlled E11.9 Insulin: No - Flnbajyr-Nw-Nou-Fe- FA tab Take 1 tablet by mouth [...] 01/23/2010 Routine general medical examination at a [facility]*01/23/2010 12/06/2012 Class: Chronic Routine gynecological examination [Z01.419] 01/23/2010 02/22/2014 Class: Chronic Morbid Obesity [E66.01] 01/23/2010 Lumbar Disc Disorder [M51.9] 02/16/2010 Routine general medical examination at a [facility]*12/06/2012 02/22/2014 Anxiety [F41.9] 06/07/2014 Type 2 diabetes [...] 09/04/2022 09/04/2022 (more content not included)... Normal [facility] Chiropractic Reporton 2024 Chiropractic Report [facility] [address] [place] [address] OFFICE VISIT Date of Service: 04/05/25 MR#: [id number] Acct: [id number] Name: TORI GRAY Rep #: [id number] : 1980 Provider: CONCEPCIÓN Montgomery Age/Sex: 44/F Location: [facility] Status: Signed Intake Vital Signs 03/22/25 09:08 [...] 7 days #30 ea 04/05/25 Rx packet [facility] Medical History Abnormal ECG Prolonged Q-T interval [...] Quiroga last week (more content not included)... [facility] 04-01-2025 [facility] Telephone (NEGAMN) ---- TORI GRAY ([id number]) 1980 F Date Time Provider Department 04/01/25 AMANDA ARTEAGA [facility] During your visit today, we recorded the following information about you: Nakia Caraballo RN 04/01/2025 12:47 PM Signed Botox approved until 11/03/25. Patient and scheduling made aware. She is a patient of [facility] but due to her being out on [...] tablet by mouth once daily. - Ipratropium [place] (ATROVENT) 21 mcg (0.03 %) nasal spray [...] Each by INTRAUTERINE route as directed. - [place]-3 Fatty Acids (FISH OIL) 500 mg cap Take 1 capsule by mouth once daily. - blood sugar diagnostic (BLOOD GLUCOSE TEST) test strip Test blood sugar(s) 1 times daily. Dx: Type 2 DM - Controlled E11.9 Insulin: Yes - Lancets lancets Test blood sugar(s) 1 times daily. Dx: Type 2 DM - Controlled E11.9 Insulin: No - Jdfuopdx-Wr-Jfx-Fe- FA tab Take 1 tablet by mouth [...] 05/06/2009 01/23/2010 Routine general medical examination at [facility]*01/23/2010 12/06/2012 Class: Chronic Routine gynecological examination [Z01.419] 01/23/2010 02/22/2014 Class: Chronic Morbid Obesity [E66.01] 01/23/2010 Lumbar Disc Disorder [M51.9] 02/16/2010 Routine general medical examination at [facility]*12/06/2012 02/22/2014 Anxiety [F41.9] 06/07/2014 Type 2 diabetes [...] mellitus [Z86.39] (more content not included)... Normal [facility] Chiropractic Reporton 2024 Chiropractic Report [facility] [address] [place] [address] OFFICE VISIT Date of Service: 03/22/25 MR#: [id number] Acct: [id number] Name: TORI GRAY Rep #: [id number] : 1980 Provider: CONCEPCIÓN Montgomery Age/Sex: 44/F Location: [facility] Status: Signed Intake Vital Signs 03/09/25 09:20 [...] 7 days #30 ea 03/22/25 Rx packet [facility] Medical History Abnormal ECG [...] an a (more content not included)... Normal [facility] Orthopedic Visit Reporton Orthopedic Visit Report [facility] [address] [place] [address] OFFICE VISIT Date of Service: 03/22/25 MR#: [id number] Acct: [id number] Name: TORI GRAY Rep #: [id number] : 1980 Provider: Dr. Brett kessler MD Age/Sex: 44/F Location: [facility] Status: Signed Intake Vital Signs 11/11/24 05:55 [...] Heart disease Triple bypass surgery Social History (Reviewed 03/22/25 @ 09:12 by JOE Butler Smoking Status: Never smoker alcohol intake: never substance use type: does not use caffeine: Yes Type: coffee what type of physical activity do you participate in: walking frequency: daily seatbelt use: always do you feel safe at home: Yes HPI LEFT SHOULDER Details: This documentation accurately reflects the service provided and the decisions made by me, Dr. West (more content not included)... [facility] 03-19-2025 [facility] Telephone (NEGAMN) ---- TORI GRAY ([id number]) 1980 F Date Time Provider Department 03/19/25 AMANDA ARTEAGA [facility] During your visit today, we recorded the [...] tablet by mouth once daily. - Ipratropium [place] (ATROVENT) 21 mcg (0.03 %) nasal spray [...] Each by INTRAUTERINE route as directed. - [place]-3 Fatty Acids (FISH OIL) 500 mg cap Take 1 capsule by mouth once daily. - blood sugar diagnostic (BLOOD GLUCOSE TEST) test strip Test blood sugar(s) 1 times daily. Dx: Type 2 DM - Controlled E11.9 Insulin: Yes - Lancets lancets Test blood sugar(s) 1 times daily. Dx: Type 2 DM - Controlled E11.9 Insulin: No - Squzamvq-Mn-Gis-Fe- FA tab Take 1 tablet by mouth [...] 05/06/2009 01/23/2010 Routine general medical examination at [facility]*01/23/2010 12/06/2012 Class: Chronic Routine gynecological examination [Z01.419] 01/23/2010 02/22/2014 Class: Chronic Morbid Obesity [E66.01] 01/23/2010 Lumbar Disc Disorder [M51.9] 02/16/2010 Routine general medical examination at [facility]*12/06/2012 02/22/2014 Anxiety [F41.9] 06/07/2014 Type 2 diabetes [...] 09/04/2022 11 (more content not included)... Normal [facility] Shoulder min 2 Viewson 03-11 Shoulder min 2 Views [facility] Imaging Services [address] [place] [address] Shoulder min 2 Views MR#: [id number] Acct: [id number] Name: TORI GRAY Rep #: [id number] : 1980 F 44 From: Jackson Laureano i, MD PCP: Dr. Ivette Grimes MD Status: REG CLI Study: Shoulder min 2 Views Date of Exam: 03/11/25 Exam# [id number] Ordering Dr: Brett Quiroga MD PROCEDURE: SHOULDER [...] Brett Quiroga MD; Dr. Ivette Grimes MD Contract Preparer: Signed Normal [facility] Chiropractic Reporton 2024 Chiropractic Report [facility] [address] [place] [address] OFFICE VISIT Date of Service: 03/09/25 MR#: [id number] Acct: [id number] Name: TORI GRAY Rep #: [id number] : 1980 Provider: CONCEPCIÓN Montgomery Age/Sex: 44/F Location: [facility] Status: Signed Intake Vital Signs 11/11/24 05:55 [...] tablet 10 mg PO DAILY blood pressure 02/02/2403/09/25 History ondansetron HCl 4 mg tablet 4 [...] 7 days #30 ea 03/09/25 Rx packet [facility] Medical History Abnormal ECG [...] under her sh (more content not included)... [facility] 03-04-2025 [facility] Telephone (NEUST) ---- TORI GRAY ([id number]) 1980 F Date Time Provider Department 03/04/25 [...] tablet by mouth once daily. - Ipratropium [place] (ATROVENT) 21 mcg (0.03 %) nasal spray [...] Each by INTRAUTERINE route as directed. - [place]-3 Fatty Acids (FISH OIL) 500 mg cap Take 1 capsule by mouth once daily. - blood sugar diagnostic (BLOOD GLUCOSE TEST) test strip Test blood sugar(s) 1 times daily. Dx: Type 2 DM - Controlled E11.9 Insulin: Yes - Lancets lancets Test blood sugar(s) 1 times daily. Dx: Type 2 DM - Controlled E11.9 Insulin: No - Skrgdjnb-Qd-Yzo-Fe- FA tab Take 1 tablet by mouth [...] 05/06/2009 01/23/2010 Routine general medical examination at [facility]*01/23/2010 12/06/2012 Class: Chronic Routine gynecological examination [Z01.419] 01/23/2010 02/22/2014 Class: Chronic Morbid Obesity [E66.01] 01/23/2010 Lumbar Disc Disorder [M51.9] 02/16/2010 Routine general medical examination at [facility]*12/06/2012 02/22/2014 Anxiety [F41.9] 06/07/2014 Type 2 diabetes [...] headache [G43. (more content not included)... Normal [facility] CNPNon 02-24-2025 CNPN Telephone (HOMERO) ---- TORI GRAY ([id number]) 1980 F Date Time Provider Department 02/24/25 [...] Botox injection on 03-09-25 @ 7:25 am. Hyacinth Mario Allergies As of Date: 02/24/2025 Noted [...] tablet by mouth once daily. - Ipratropium [place] (ATROVENT) 21 mcg (0.03 %) nasal spray [...] Each by INTRAUTERINE route as directed. - [place]-3 Fatty Acids (FISH OIL) 500 mg cap Take 1 capsule by mouth once daily. - blood sugar diagnostic (BLOOD GLUCOSE TEST) test strip Test blood sugar(s) 1 times daily. Dx: Type 2 DM - Controlled E11.9 Insulin: Yes - Lancets lancets Test blood sugar(s) 1 times daily. Dx: Type 2 DM - Controlled E11.9 Insulin: No - Aaaeueno-Cm-Kem-Fe- FA tab Take 1 tablet by mouth [...] 05/06/2009 01/23/2010 Routine general medical examination at [facility]*01/23/2010 12/06/2012 Class: Chronic Routine gynecological examination [Z01.419] 01/23/2010 02/22/2014 Class: Chronic Morbid Obesity [E66.01] 01/23/2010 Lumbar Disc Disorder [M51.9] 02/16/2010 Routine general medical examination at [facility]*12/06/2012 02/22/2014 Anxiety [F41.9] 06/07/2014 Type 2 diabetes [...] 09/04/2022 Low (more content not included)... Normal [facility] Inital Evaluation (1) - PTon 02-08-2025 Inital Evaluation (1) - PT [facility] [place] [address] / REHABILITATION SERVICES INITIAL EVALUATION MR#: [id number] Acct: [id number] Name: TORI GRAY Rep #: [id number] : 1980 44 From: Santana Ruano DPT Referring Dr.: Dr. Ivtete Grimes MD Status: REG RCR Insurance: [employer] SELF PAY INSURANCE Patient's Visit Information Visit Information Visit Information: TORI GRAY is a 44 year old F referred to Physical Therapy by Dr. Ivette Grimes MD with a diagnosis of L shoulder pain. Date of Evaluation: 02/08/25 Physical Therapist: Santana Ruano DPT Visit Plan Frequency: 2x /Week Duration: 6 [...] to be FAXED BACK to us at [phone] for Medicare purposes. For Medicare only, by signing this I certify the plan of care. Please let me know if there are questions or concerns regarding this plan of care. Physician Signature: __Date: 02/08/25 1434 CC: Dr. Ivette Grimes MD CLS Signed Normal [facility] Chiropractic Reporton 2024 Chiropractic Report [facility] [address] [place] [address] OFFICE VISIT Date of Service: 02/04/25 MR#: [id number] Acct: [id number] Name: GRAYTORI ELIAS Rep #: [id number] : 1980 Provider: CONCEPCIÓN Mccarty Do ssi Age/Sex: 44/F Location: [facility] Status: Signed Intake Vital Signs 11/11/24 05:55 [...] 7 days #30 ea 02/04/25 Rx packet [facility] Medical History Abnormal ECG Prolonged Q-T interval [...] adjustment. 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 Normal [facility] Anion gap in Serum or Plasma Ordered By: Ivette Grimes on 01-28-2025 Anion gap [Moles/Vol] 11 mmol/L - [facility] BUN/creatinine ratioOrdered By: Ivette Grimes on 01-28-2025 Urea nitrogen/Creatinine [Mass ratio] 18.5 mg/mg - [facility] Basic Metabolic Profile (BMP )on 01-28-2025 BUN/CRE 18.5 RATIO Normal - [facility] Comment on above: Performed By: #### L 500.2500, L501.9985 ####[facility] [address] [place], [address] Calcium [Mass/Vol] 9.0 mg/dL Normal 7.6-11.0 [facility] Comment on above: Performed By: #### L 500.2500, L501.9985 ####[facility] [address] [place], [address] Chloride [Moles/Vol] 105 mmol/L Normal 98-108 [facility] Comment on above: Performed By: #### L 500.2500, L501.9985 ####[facility] [address] [place], [address] CO2 [Moles/Vol] 21.2 mmol/L Normal 21.0-32.0 [facility] Comment on above: Performed By: #### L 500.2500, L501.9985 ####[facility] [address] [place], [address] Creatinine [Mass/Vol] 0.77 mg/dL Normal 0.70-1.20 [facility] Comment on above: Performed By: #### L 500.2500, L501.9985 ####[facility] [address] [place], [address] GAP 11 Normal 5-15 [facility] Comment on above: Performed By: #### L 500.2500, L501.9985 ####[facility] [address] [place], [address] GFR/1.73 sq M.predicted among non-blacks MDRD (S/P/Bld) [Vol rate/Area] 98 mL/min/{1.73_m2} Normal >60 [facility] Comment on above: Result Comment: mL/m in/1.73m2 CKD-EPI Creatinine Equation (2020) Performed By: #### L 500.2500, L501.9985 ####[facility] [address] [place], [address] Glucose [Mass/Vol] 185 mg/dL High 70-99 [facility] Comment on above: Performed By: #### L 500.2500, L501.9985 ####[facility] [address] [place], [address] Potassium [Moles/Vol] 4.2 mmol/L Normal 3.3-5.1 [facility] Comment on above: Result Comment: Hemo lysis present, Results??could be affected. ?? Performed By: #### L 500.2500, L501.9985 ####[facility] [address] [place], [address] Sodium [Moles/Vol] 137 mmol/L Normal 133-145 [facility] Comment on above: Performed By: #### L 500.2500, L501.9985 ####[facility] [address] [place], [address] Urea nitrogen [Mass/Vol] 14 mg/dL Normal 4-19 [facility] Comment on above: Performed By: #### L 500.2500, L501.9985 ####[facility] [address] [place], [address] [facility] ---- TORI GRAY ([id number]) 1980 F Date Time Provider Department 01/28/25 [facility] During your visit today, we recorded the following information about you: Wilian Barnett RN 01/28/2025 4:54 PM Signed Prior Authorization Documentation Prior authorization requested for the following medication: Medication: Ozempic 1 mg (all though PA done in Aug 2024 and approved until Aug 2025 this needs PA due to dose change). Provider: [place] Name: Minted Phone number: [phone] Patient ID number: [id number] Pharmacy Name: [facility] Pharm[facility] Pharmacy Telephone number: [phone] Evon Philippe LPN 01/28/2025 4:56 PM Signed Electronic PA requested. Evon Philippe LPN 01/28/2025 4:58 PM Signed Unable to complete electronically. Will try on covermymeds Evon Philippe LPN 01/29/2025 9:07 AM Signed [employer] RESPONSE. [employer] does not handle this review. Please visit [email or web address] to start a prior authorization or fax information to [phone]. Please include all supporting chart notes. You may contact [employer] at [phone]. WILL FAX PA REQUEST TO NUMBER PROVIDED. [...] her know when it is ready for clam picker. Allergies As of Date: 01/28/2025 Noted [...] tablet by mouth once daily. - Ipratropium [place] (ATROVENT) 21 mcg (0.03 %) nasal spray [...] Each by INTRAUTERINE route as directed. - [place]-3 Fatty Acids (FISH OIL) 500 mg cap Take 1 capsule by mouth once daily. - blood sugar diagnostic (BLOOD GLUCOSE TEST) test strip Test blood sugar(s) 1 times daily. Dx: Type 2 DM - Controlled E11.9 Insulin: Yes - Lancets lancets Test blood sugar(s) 1 times daily. Dx: Type 2 DM - Controlled E11.9 Insulin: No - Hoxpvdpu-Hz-Ebn-Fe- FA tab Take 1 tablet by mouth [...] DERMATOFIBROMA///BE N (more content not included)... Normal [facility] Telephone ([facility]) ---- TORI GRAY ([id number]) 1980 F Date Time Provider Department 01/28/25 [facility] During your visit today, we recorded the following information about you: Dennise Robles MA 01/28/2025 8:45 AM Signed Scan on 01/28/2025 8:29 AM by ProviderSherry PA-C: BMP Scan on 01/28/2025 8:17 AM by ProviderSherry PA-C: HGB A1C Allergies As of Date: 01/28/2025 [...] tablet by mouth once daily. - Ipratropium [place] (ATROVENT) 21 mcg (0.03 %) nasal spray [...] Each by INTRAUTERINE route as directed. - [place]-3 Fatty Acids (FISH OIL) 500 mg cap Take 1 capsule by mouth once daily. - blood sugar diagnostic (BLOOD GLUCOSE TEST) test strip Test blood sugar(s) 1 times daily. Dx: Type 2 DM - Controlled E11.9 Insulin: Yes - Lancets lancets Test blood sugar(s) 1 times daily. Dx: Type 2 DM - Controlled E11.9 Insulin: No - Wvnrvant-Tw-Olh-Fe- FA tab Take 1 tablet by mouth [...] 02/16/2010 Routine general medical examination at a [facility]*12/06/2012 02/22/2014 Anxiety [F41.9] 06/07/2014 Type 2 diabetes [...] R19.7] 11/22/202109/04 (more content not included)... Normal [facility] Carbon dioxide, total [Moles /volume] in Central venous bloodOrdered By: Ivette Grimes on 01-28-2025 CO2 [Moles/Vol] 21.2 mmol/L 21.0-32.0 [facility] Chloride assayOrdered By: Regina Grimes on 01-28-2025 Chloride [Moles/Vol] 105 mmol/L 98-108 [facility] GFR/1.73 sq M.predicted jamari g non-blacks MDRD (S/P/Bld) [Vol rate/Area]Ordered By: Ivette Grimes on 01-28-2025 Estimated GFR (MDRD) Non-Af Amer 98 >60 [facility] Comment on above: mL/min/1.73m2 CKD-EP I Creatinine Equation (2020) Glomerular filtration rate ( GFR) estimation/1.73 sq m using serum, plasma, or whole bOrdered By: Ivette Grimes on 01-28-2025 GFR/1.73 sq M.predicted among non-blacks MDRD (S/P/Bld) [Vol rate/Area] 98 mL/min/{1.73_m2} >60 [facility] Comment on above: mL/min/1.73m2 CKD-EP I Creatinine Equation (2020) HBA1C (OUTSIDE)on 01-28-2025 [facility] Hemoglobin A1c percentageon 01-28-2025 HbA1c (Bld) [Mass fraction] 6.6 % Normal <=5.6 [facility] Comment on above: Performed By: #### L 500.2500, L501.9985 #### [facility] [place], [place], [address] Potassium (Unsp spec) [Mass/ Vol]Ordered By: Ivette Grimes on 01-28-2025 Potassium [Moles/Vol] 4.2 mmol/L 3.3-5.1 [facility] Comment on above: Hemolysis present, R esults could be affected. Potassium measurement (mass/ volume)Ordered By: Ivette Grimes on 01-28-2025 Potassium (Unsp spec) [Mass/Vol] 4.2 mmol/L 3.3-5.1 [facility] Comment on above: Hemolysis present, R esults could be affected. Serum creatinine measurement (mass/volume)Ordered By: Ivette Grimes on 01-28-2025 Creatinine [Mass/Vol] 0.77 mg/dL 0.70-1.20 [facility] Serum glucose measurement (m ass/volume)Ordered By: Ivette Grimes on 01-28-2025 Glucose [Mass/Vol] 185 mg/dL High 70-99 [facility] Serum or plasma calcium sharron urement (mass/volume)Ordered By: Ivette Grimes on 01-28-2025 Calcium [Mass/Vol] 9.0 mg/dL 7.6-11.0 [facility] Serum or plasma urea nitroge n measurement (mass/volume)Ordered By: Ivette Grimes on 01-28-2025 Urea nitrogen [Mass/Vol] 14 mg/dL 4-19 [facility] Sodium levelOrdered By: Reji Grimes on 01-28-2025 Sodium [Moles/Vol] 137 mmol/L 133-145 [facility] CNOVon 01-22-2025 [facility] TORI GRAY ([id number]) 1980 F Date Time Provider Department 01/22/25 3:40 PM [facility] During your visit today, we recorded the following information about you: Pulse Blood pressure Weight 77/minute 122/72 127.9 kg Ivtete Grimes MD 01/22/2025 4:08 PM Signed Patient [...] 1 tablet by mouth once daily. Ipratropium [place] (ATROVENT) 21 mcg (0.03 %) nasal spray [...] 1 Each by INTRAUTERINE route as directed. [place]-3 Fatty Acids (FISH OIL) 500 mg cap Take 1 capsule by mouth once daily. blood sugar diagnostic (BLOOD GLUCOSE TEST) test strip Test blood sugar(s) 1 times daily. Dx: Type 2 DM - Controlled E11.9 Insulin: Yes Lancets lancets Test blood sugar(s) 1 times daily. Dx: Type 2 DM - Controlled E11.9 Insulin: No Zanwdmbh-Bu-Qmd-Fe- FA tab Take 1 tablet by mouth [...] Age of Onset Alcohol/Drug Mother Heart Father [place] Cancer Father PANCREATIC CANCER Diabetes Father Coronary [...] Controlled ( (more content not included)... [facility] ISAACTORI ([id number]) 1980 F Date Time Provider Department 12/21/24 [facility]ENNI [facility]Z [facility] During your visit today, we recorded the following information about you: Jenni Martínez APRN.GABRIELA 12/21/2024 2:36 PM Signed Can you please [...] tablet by mouth once daily. - Ipratropium [place] (ATROVENT) 21 mcg (0.03 %) nasal spray [...] Each by INTRAUTERINE route as directed. - [place]-3 Fatty Acids (FISH OIL) 500 mg cap Take 1 capsule by mouth once daily. - blood sugar diagnostic (BLOOD GLUCOSE TEST) test strip Test blood sugar(s) 1 times daily. Dx: Type 2 DM - Controlled E11.9 Insulin: Yes - Lancets lancets Test blood sugar(s) 1 times daily. Dx: Type 2 DM - Controlled E11.9 Insulin: No - Fkomehss-Tg-Zlt-Fe- FA tab Take 1 tablet by mouth [...] 05/06/2009 01/23/2010 Routine general medical examination at [facility]*01/23/2010 12/06/2012 Class: Chronic Routine gynecological examination [Z01.419] 01/23/2010 02/22/2014 Class: Chronic Morbid Obesity [E66.01] 01/23/2010 Lumbar Disc Disorder [M51.9] 02/16/2010 Routine general medical examination at [facility]*12/06/2012 02/22/2014 Anxiety [F41.9] 06/07/2014 Type 2 diabetes mellitus with microalbuminuria,*0 07/04/2018 Fatty liver [K76.0] 07/21/2018 08/05/2024 LETITIA (obstructive sleep apnea) [G47.33] 07/21/2018 Microalbuminuria [R80.9] 09/30/2018 09/04/2022 Obesity, Class III, BMI >= 40 [E66.01] 11/26/2019 09/04/2022 (more content not included)... Normal [facility] Albumin to globulin ratioOrd ered By: Jenni Martínez on 12-11-2024 Albumin/Globulin [Mass ratio] 0.8 {ratio} Low 0.9-2.4 [facility] Bilirubin, totalOrdered By: Jenni Martínez on 12-11-2024 Bilirubin [Mass/Vol] 0.80 mg/dL 0.20-1.00 [facility] Comment on above: For patients on eltr ombopag therapy, use of Dimension [place] TBIL is not recommended. Blood urea nitrogen (BUN)/cr eatinine ratioOrdered By: Jenni Martínez on 12-11-2024 Urea nitrogen/Creatinine [Mass ratio] 11.5 mg/mg 10-20 [facility] CNOVon 12-11-2024 [facility] TORI GRAY ([id number]) 1980 F Date Time Provider Department 12/11/24 11:00 AM JENNI [facility] During your visit today, we recorded the following information about you: Temperature Pulse Respiration Blood pressure 97.8 degrees 72/minute 16/minute 138/74 Weight 125.7 kg Jenni Martínez APRN.CNP 12/11/2024 12:26 PM Signed This is a 44 year old female who presents today with: Patient presents with: Acute Visit: cough, congestion x 4 weeks HISTORY OF PRESENT ILLNESS: Jemmabree Gray is a 44 year old female. [...] 1 tablet by mouth once daily. Ipratropium [place] (ATROVENT) 21 mcg (0.03 %) nasal spray [...] 1 Each by INTRAUTERINE route as directed. [place]-3 Fatty Acids (FISH OIL) 500 mg cap Take 1 capsule by mouth once daily. blood sugar diagnostic (BLOOD GLUCOSE TEST) test strip Test blood sugar(s) 1 times daily. Dx: Type 2 DM - Controlled E11.9 Insulin: Yes Lancets lancets Test blood sugar(s) 1 times daily. Dx: Type 2 DM - Controlled E11.9 Insulin: No Mhfvdcgh-Zd-Zhe-Fe- FA tab Take 1 tablet by mouth once daily. No current facility-administer ed medications for this visit. FAMILY HISTORY Problem Relation Age of Onset Alcohol/Drug Mother Heart Father [place] Cancer Father PANCREATIC CANCER Diabetes Father Coronary [...] NECK: Negat (more content not included)... Normal [facility] TORI G[facility] ([id number]) 1980 F Date Time Provider Department 12/11/24 [facility] During your visit today, we recorded the following information about you: Brittney Meredith RN 12/11/2024 8:23 AM Signed Patient calling to make appt for evaluation of respiratory sx's that began approx 4 weeks ago. Pt states she feels she may have bronchitis or pneumonia. States she was at [facility] ER last month due to dizziness, vision [...] tablet by mouth once daily. - Ipratropium [place] (ATROVENT) 21 mcg (0.03 %) nasal spray [...] Each by INTRAUTERINE route as directed. - [place]-3 Fatty Acids (FISH OIL) 500 mg cap Take 1 capsule by mouth once daily. - blood sugar diagnostic (BLOOD GLUCOSE TEST) test strip Test blood sugar(s) 1 times daily. Dx: Type 2 DM - Controlled E11.9 Insulin: Yes - Lancets lancets Test blood sugar(s) 1 times daily. Dx: Type 2 DM - Controlled E11.9 Insulin: No - Kwjyqqxx-Tz-Uwr-Fe- FA tab Take 1 tablet by mouth [...] 05/06/2009 01/23/2010 Routine general medical examination at [facility]*01/23/2010 12/06/2012 Class: Chronic Routine gynecological examination [Z01.419] 01/23/2010 02/22/2014 Class: Chronic Morbid Obesity [E66.01] 01/23/2010 Lumbar Disc Disorder [M51.9] 02/16/2010 Routine general medical examination at [facility]*12/06/2012 02/22/2014 Anxiety [F41.9] 06/07/2014 Type 2 diabetes mellitus with microalbuminuria,*0 07/04/2018 Fatty liver [K76.0] 07/21/2018 08/05/20 (more content not included)... [facility] ISAACTORI ([id number]) 1980 F Date Time Provider Department 12/11/24 JENNI MARTÍNEZ During your visit today, we recorded the following information about you: Jenni Martínez APRN.GABRIELA 12/11/2024 2:18 PM Signed Can you please call the patient and let her know that I am still waiting for x-ray results from [facility]. I went ahead and sent in a [...] tablet by mouth once daily. - Ipratropium [place] (ATROVENT) 21 mcg (0.03 %) nasal spray [...] Each by INTRAUTERINE route as directed. - [place]-3 Fatty Acids (FISH OIL) 500 mg cap Take 1 capsule by mouth once daily. - blood sugar diagnostic (BLOOD GLUCOSE TEST) test strip Test blood sugar(s) 1 times daily. Dx: Type 2 DM - Controlled E11.9 Insulin: Yes - Lancets lancets Test blood sugar(s) 1 times daily. Dx: Type 2 DM - Controlled E11.9 Insulin: No - Jhvkfhqr-Dt-Kmw-Fe- FA tab Take 1 tablet by mouth [...] SACROILIITIS [ (more content not included)... Normal [facility] Carbon dioxide measurementOr dered By: Jenni Martínez on 12-11-2024 CO2 [Moles/Vol] 23.0 mmol/L 21.0-32.0 [facility] Chest PA and Lateralon 12-11 Chest PA and Lateral [facility] Imaging Services [address] [place] [address] Chest PA and Lateral MR#: [id number] Acct: [id number] Name: TORI GRAY Rep #: [id number] : 1980 F 44 From: Sammy Gay MD PCP: Dr. Ivette Grimes MD Status: REG CLI Study: Chest PA and Lateral Date of Exam: 12/11/24 Exam# [id number] Ordering Dr: Jenni Martínez LEAD GENERATION SPECIALIST-Mireya EXAM: XR Chest, 2 Views CLINICAL INDICATION: TECHNIQUE: Frontal and lateral views of the chest. COMPARISON: No relevant prior studies available. FINDINGS: LUNGS AND PLEURAL SPACES: Unremarkable. No consolidation. No pneumothorax. HEART: Unremarkable. No cardiomegaly. MEDIASTINUM: Unremarkable. Normal mediastinal contour. BONES/JOINTS: Unremarkable. No acute fracture. RAD/Chest PA and Lateral IMPRESSION: No acute cardiopulmonary process. Reading [facility] CC: FADUMO Martínez; Dr. Ivette Grimes MD Contract Preparer: Signed Normal [facility] Chloride measurementOrdered By: Jenni Martínez on 12-11-2024 Chloride [Moles/Vol] 107 mmol/L 98-107 [facility] Comprehensive Metabolic Prof ilon 12-11-2024 Albumin [Mass/Vol] 3.7 g/dL Normal 3.2-5.0 [facility] Comment on above: Performed By: #### L 500.4050 ####[facility] [address] [place], [address] Albumin/Globulin [Mass ratio] 0.8 {ratio} Low 0.9-2.4 [facility] Comment on above: Performed By: #### L 500.4050 ####[facility] [address] [place], [address] ALK P 84 U/L Normal 45-117 [facility] Comment on above: Performed By: #### L 500.4050 ####[facility] [address] [place], [address] ALT [Catalytic activity/Vol] 53 U/L Normal 13-56 [facility] Comment on above: Performed By: #### L 500.4050 ####[facility] [address] [place], [address] AST [Catalytic activity/Vol] 40 U/L High 15-37 [facility] Comment on above: Performed By: #### L 500.4050 ####[facility] [address] [place], [address] Bilirubin [Mass/Vol] 0.80 mg/dL Normal 0.20-1.00 [facility] Comment on above: Result Comment: For patients on eltrombopag therapy, use of Dimension [place] TBIL is not recommended. Performed By: #### L 500.4050 ####[facility] [address] [place], [address] BUN/CRE 11.5 RATIO Normal 10-20 [facility] Comment on above: Performed By: #### L 500.4050 ####[facility] [address] [place], [address] CA,Total 8.8 mg/dL Normal 8.5-10.1 [facility] Comment on above: Performed By: #### L 500.4050 ####[facility] [address] [place], [address] Chloride [Moles/Vol] 107 mmol/L Normal 98-107 [facility] Comment on above: Performed By: #### L 500.4050 ####[facility] [address] [place], [address] CO2 [Moles/Vol] 23.0 mmol/L Normal 21.0-32.0 [facility] Comment on above: Performed By: #### L 500.4050 ####[facility] [address] [place], [address] Creatinine [Mass/Vol] 0.78 mg/dL Normal 0.55-1.02 [facility] Comment on above: Result Comment: The validity of the calculated GFR GFRAA in patients over 70 years has not been determined. Clinical correlation is essential. Performed By: #### L 500.4050 ####[facility] [address] [place], [address] EST GFR - AA 104 mL/min Normal >60 [facility] Comment on above: Result Comment: Afri can Omani GFR Calc Performed By: #### L 500.4050 ####[facility] [address] [place], [address] GAP 7 Normal 5-15 [facility] Comment on above: Performed By: #### L 500.4050 ####[facility] [address] [place], [address] GFR/1.73 sq M.predicted among non-blacks MDRD (S/P/Bld) [Vol rate/Area] 86 mL/min/{1.73_m2} Normal >60 [facility] Comment on above: Result Comment: Non- GFR Calc Performed By: #### L 500.4050 ####[facility] [address] [place], [address] Globulin (S) [Mass/Vol] 4.5 g/dL High 2.2-4.2 [facility] Comment on above: Performed By: #### L 500.4050 ####[facility] [address] [place], [address] Glucose [Mass/Vol] 109 mg/dL High 74-106 [facility] Comment on above: Result Comment: Fast ing Glucose result from 100 to 125 mg/dL suggests IMPAIRED HOMEOSTASIS per A.D.A. criteria. Performed By: #### L 500.4050 ####[facility] [address] [place], [address] Potassium [Moles/Vol] 3.9 mmol/L Normal 3.5-5.1 [facility] Comment on above: Performed By: #### L 500.4050 ####[facility] [address] [place], [address] Sodium [Moles/Vol] 137 mmol/L Normal 136-145 [facility] Comment on above: Performed By: #### L 500.4050 ####[facility] [address] [place], [address] T PROT 8.2 g/dL Normal 6.4-8.2 [facility] Comment on above: Performed By: #### L 500.4050 ####[facility] [address] [place], [address] Urea nitrogen [Mass/Vol] 9 mg/dL Normal 7-18 [facility] Comment on above: Performed By: #### L 500.4050 ####[facility] [address] [place], [address] Estimated glomerular filtrat ion rate (GFR) AmericanOrdered By: Jenni Martínez on 12-11-2024 Estimated GFR (MDRD) Amer 104 mL/min >60 [facility] Comment on above: GFR Calc Glomerular filtration rate ( GFR) estimationOrdered By: Jenni Martínez on 12-11-2024 Estimated GFR (MDRD) Non-Af Amer 86 mL/min >60 [facility] Comment on above: Non- GFR Calc GFR/1.73 sq M.predicted among non-blacks MDRD (S/P/Bld) [Vol rate/Area] 86 mL/min/{1.73_m2} >60 [facility] Comment on above: Non- GFR Calc Glucose measurementOrdered B y: Jenni Martínez on 12-11-2024 Glucose [Mass/Vol] 109 mg/dL High 74-106 [facility] Comment on above: Fasting Glucose resu lt from 100 to 125 mg/dL suggests IMPAIRED HOMEOSTASIS per A.D.A. criteria. Laboratory - Chemistry and C hemistry - challengeOrdered By: Jenni Martínez on 12-11-2024 AST [Catalytic activity/Vol] 40 U/L High 15-37 [facility] Potassium measurementOrdered By: Jenni Martínez on 12-11-2024 Potassium [Moles/Vol] 3.9 mmol/L 3.5-5.1 [facility] Serum anion gap measurementO rdered By: Jenni Martínez on 12-11-2024 Anion gap [Moles/Vol] 7 mmol/L 5-15 [facility] Serum globulin measurementOr dered By: Jenni Martínez on 12-11-2024 Globulin (S) [Mass/Vol] 4.5 g/dL High 2.2-4.[address] [facility] Serum or plasma alanine arizmendi otransferase (ALT) measurementOrdered By: Jenni Martínez on 12-11-2024 ALT [Catalytic activity/Vol] 53 U/L 13-56 [facility] Serum or plasma albumin sharron urement (mass/volume)Ordered By: Jenni Martínez on 12-11-2024 Albumin [Mass/Vol] 3.7 g/dL 3.2-5.0 [facility] Serum or plasma alkaline toyin sphatase measurementOrdered By: Jenni Martínez on 12-11-2024 ALP [Catalytic activity/Vol] 84 U/L 45-117 [facility] Serum or plasma calcium sharron urement (mass/volume)Ordered By: Jenni Martínez on 12-11-2024 Calcium [Mass/Vol] 8.8 mg/dL 8.5-10.1 [facility] Serum or plasma creatinine m easurement (mass/volume)Ordered By: Jenni Martínez on 12-11-2024 Creatinine [Mass/Vol] 0.78 mg/dL 0.55-1.02 [facility] Comment on above: The validity of the calculated GFR & GFRAA in patients over 70 years has not been determined. Clinical correlation is essential. Serum or plasma urea nitroge n measurement (mass/volume)Ordered By: Jenni Martínez on 12-11-2024 Urea nitrogen [Mass/Vol] 9 mg/dL 7-18 [facility] Sodium levelOrdered By: Ricco Albaradohof on 12-11-2024 Sodium [Moles/Vol] 137 mmol/L 136-145 [facility] Total proteinOrdered By: John Martínez on 12-11-2024 Protein [Mass/Vol] 8.2 g/dL 6.4-8.2 [facility] Urine Cultureon 11-12-2024 [facility] Mixed Gram Pos Gram Neg Org Avon Count 11,000-25,000 MIXC Mixed contaminants. Submit a new specimen if indicated. Normal [facility] Comment on above: Performed By: #### M 100.2200 ####[facility] [address] [facility] [place], [address] 12 Lead EKGon 11-11-2024 12 Lead EKG [facility] Cardiovascular Services [address] [place] [address] 12 Lead EKG 11/11/24 0649 MR#: [id number] Acct: [id number] Name: TORI GRAY Rep #: [id number] : 1980 44 From: Jackson Keenan MD [...] abnormality Abnormal ECG Confirmed by Jackson Keenan ([id number]), editor & co founder PRISCILA FERRERA ([id number]) on 11/12/2024 10:16:52 AM Referred By: Isabel Confirmed By: Jackson Keenan 11/12/24 1016 Date Jackson Keenan MD CC: Dr. Buddy Hall DO; Dr. Ivette Grimes MD Signed Normal [facility] Absolute neutrophil countOrd ered By: Buddy Hall on 11-11-2024 Neutrophils (Bld) [#/Vol] 6.5 10*3/uL 2.0-7.7 [facility] Albumin to globulin ratioOrd ered By: Buddy Hall on 11-11-2024 Albumin/Globulin [Mass ratio] 0.6 {ratio} Low 0.9-2.4 [facility] Bacteria LM.HPF (Urine sed) [#/Area]Ordered By: Buddy Hall on 11-11-2024 Urine Bacteria RARE /hpf None Seen [facility] Basophil percentageOrdered B y: Buddy Hall on 11-11-2024 Basophils/100 WBC (Bld) 0.4 % 0-[address] [facility] Bilirubin Test strip Ql (U)O rdered By: Buddy Hall on 11-11-2024 Bilirubin Ql (U) Negative Negative [facility] Bilirubin, totalOrdered By: Buddy Hall on 11-11-2024 Bilirubin [Mass/Vol] 0.90 mg/dL 0.20-1.00 [facility] Comment on above: For patients on eltr ombopag therapy, use of Dimension Grayson TBIL is not recommended. Blood urea nitrogen (BUN)/cr eatinine ratioOrdered By: Buddy Hall on 11-11-2024 Urea nitrogen/Creatinine [Mass ratio] 9.8 mg/mg Low 10-20 [facility] CBC W/Diff, Automatedon Absolute Lymph 0.72 X10 3/uL Low 0.83-4.51 [facility] Comment on above: Performed By: #### L 500.4050, L100.0100 #### [facility] [address] [place], [address] Absolute Neut 6.5 X10 3/uL Normal 2.0-7.7 [facility] Comment on above: Performed By: #### L 500.4050, L100.0100 #### [facility] [address] [place], [address] Basophils/100 WBC (Bld) 0.4 % Normal 0-[address] [facility] Comment on above: Performed By: #### L 500.4050, L100.0100 #### [facility] [address] [place], [address] Eosinophils/100 WBC (Bld) 1.2 % Normal 0-5 [facility] Comment on above: Performed By: #### L 500.4050, L100.0100 #### [facility] [address] [place], [address] Erythrocyte distribution width (RBC) [Ratio] 13.7 % Normal 11.6-14.6 [facility] Comment on above: Performed By: #### L 500.4050, L100.0100 #### [facility] [address] [place], [address] Hematocrit (Bld) [Volume fraction] 33.1 % Low 37-47 [facility] Comment on above: Performed By: #### L 500.4050, L100.0100 #### [facility] [address] [place], [address] Hemoglobin (Bld) [Mass/Vol] 11.4 g/dL Low 12.0-15.0 [facility] Comment on above: Performed By: #### L 500.4050, L100.0100 #### [facility] [address] [place], [address] IG% 1.200 High 0.0-0.9 [facility] Comment on above: Result Comment: IG% - Immature Granulocytes (promyelocytes, myelocytes and metamyelocytes) > 1% indicates that a LEFT SHIFT is Present. Performed By: #### L 500.4050, L100.0100 #### [facility] [address] [place], [address] Lymphocytes/100 WBC (Bld) 9.2 % Low 19-41 [facility] Comment on above: Performed By: #### L 500.4050, L100.0100 #### [facility] [address] [place], [address] MCH (RBC) [Entitic mass] 31.8 pg Normal 27.0-32.0 [facility] Comment on above: Performed By: #### L 500.4050, L100.0100 #### [facility] [address] [place], [address] MCHC (RBC) [Mass/Vol] 34.4 g/dL Normal 32-36 [facility] Comment on above: Performed By: #### L 500.4050, L100.0100 #### [facility] [address] [place], [address] MCV (RBC) [Entitic vol] 92.5 fL Normal 81-99 [facility] Comment on above: Performed By: #### L 500.4050, L100.0100 #### [facility] [address] [place], [address] Monocytes/100 WBC (Bld) 4.2 % Normal 0-10 [facility] Comment on above: Performed By: #### L 500.4050, L100.0100 #### [facility] [address] [place], [address] Neutrophils/100 WBC (Bld) 83.8 % High 47-70 [facility] Comment on above: Performed By: #### L 500.4050, L100.0100 #### [facility] [address] [place], [address] Nucleated RBC (Bld) [#/Vol] 0 10*3/uL Normal 0-5 [facility] Comment on above: Performed By: #### L 500.4050, L100.0100 #### [facility] [address] [place], [address] Platelet mean volume (Bld) [Entitic vol] 9.6 fL Normal 6.2-12.0 [facility] Comment on above: Performed By: #### L 500.4050, L100.0100 #### [facility] [address] [place], [address] Platelets (Bld) [#/Vol] 108 10*3/uL Low 150-450 [facility] Comment on above: Performed By: #### L 500.4050, L100.0100 #### [facility] [address] [place], [address] RBC (Bld) [#/Vol] 3.58 10*6/uL Low 4.2-5.4 [facility] Comment on above: Performed By: #### L 500.4050, L100.0100 #### [facility] [address] [place], [address] RDW SD 46.7 fl High 35.1-43.9 [facility] Comment on above: Performed By: #### L 500.4050, L100.0100 #### [facility] [address] [place], [address] WBC (Bld) [#/Vol] 7.8 10*3/uL Normal 4.4-11.0 [facility] Comment on above: Performed By: #### L 500.4050, L100.0100 #### [facility] [address] [place], [address] Carbon dioxide measurementOr dered By: Buddy Hall on 11-11-2024 CO2 [Moles/Vol] 28.0 mmol/L 21.0-32.0 [facility] Chloride measurementOrdered By: Buddy Hall on 11-11-2024 Chloride [Moles/Vol] 102 mmol/L 98-107 [facility] Comprehensive Metabolic Prof ilon 11-11-2024 Albumin [Mass/Vol] 2.6 g/dL Low 3.2-5.0 [facility] Comment on above: Performed By: #### L 500.4050, L100.0100 #### [facility] [address] [place], [address] Albumin/Globulin [Mass ratio] 0.6 {ratio} Low 0.9-2.4 [facility] Comment on above: Performed By: #### L 500.4050, L100.0100 #### [facility] [address] [place], [address] ALK P 79 U/L Normal 45-117 [facility] Comment on above: Performed By: #### L 500.4050, L100.0100 #### [facility] [address] [place], [address] ALT [Catalytic activity/Vol] 29 U/L Normal 13-56 [facility] Comment on above: Performed By: #### L 500.4050, L100.0100 #### [facility] [address] [place], [address] AST [Catalytic activity/Vol] 16 U/L Normal 15-37 [facility] Comment on above: Performed By: #### L 500.4050, L100.0100 #### [facility] [address] [place], [address] Bilirubin [Mass/Vol] 0.90 mg/dL Normal 0.20-1.00 [facility] Comment on above: Result Comment: For patients on eltrombopag therapy, use of Dimension [place]ayson TBIL is not recommended. Performed By: #### L 500.4050, L100.0100 #### [facility] [address] [place], [address] BUN/CRE 9.8 RATIO Low 10-20 [facility] Comment on above: Performed By: #### L 500.4050, L100.0100 #### [facility] [address] [place], [address] CA,Total 8.2 mg/dL Low 8.5-10.1 [facility] Comment on above: Performed By: #### L 500.4050, L100.0100 #### [facility] [address] [place], [address] Chloride [Moles/Vol] 102 mmol/L Normal 98-107 [facility] Comment on above: Performed By: #### L 500.4050, L100.0100 #### [facility] [address] [place], [address] CO2 [Moles/Vol] 28.0 mmol/L Normal 21.0-32.0 [facility] Comment on above: Performed By: #### L 500.4050, L100.0100 #### [facility] [address] [place], [address] Creatinine [Mass/Vol] 1.12 mg/dL High 0.55-1.02 [facility] Comment on above: Result Comment: The validity of the calculated GFR GFRAA in patients over 70 years has not been determined. Clinical correlation is essential. Performed By: #### L 500.4050, L100.0100 #### [facility] [address] [place], [address] ECRCL 92.31 ml/min Normal [facility] Comment on above: Performed By: #### L 500.4050, L100.0100 #### [facility] [address] [place], [address] EST GFR - AA 69 mL/min Normal >60 [facility] Comment on above: Result Comment: Afri can Omani GFR Calc Performed By: #### L 500.4050, L100.0100 #### [facility] [address] [place], [address] GAP 6 Normal 5-15 [facility] Comment on above: Performed By: #### L 500.4050, L100.0100 #### [facility] [address] [place], [address] GFR/1.73 sq M.predicted among non-blacks MDRD (S/P/Bld) [Vol rate/Area] 57 mL/min/{1.73_m2} Low >60 [facility] Comment on above: Result Comment: Non- GFR Calc Performed By: #### L 500.4050, L100.0100 #### [facility] [address] [place], [address] Globulin (S) [Mass/Vol] 4.0 g/dL Normal 2.2-4.[address] [facility] Comment on above: Performed By: #### L 500.4050, L100.0100 #### [facility] [address] [place], [address] Glucose [Mass/Vol] 233 mg/dL High 74-106 [facility] Comment on above: Result Comment: Gluc ose result greater than or equal to 200 mg/dL suggests DIABETES MELLITUS per A.D.A. criteria. Performed By: #### L 500.4050, L100.0100 #### [facility] [address] [place], [address] Potassium [Moles/Vol] 2.6 mmol/L Invalid Interpretation Code 3.5-5.1 [facility] Comment on above: Result Comment: Crit ical Result(s) Called at: 07:34:02 11/11/2024 by: ESTEFANIA ALANIZ to Ronald Dumas. Results read back by same. Performed By: #### L 500.4050, L100.0100 #### [facility] [address] [place], [address] Sodium [Moles/Vol] 135 mmol/L Low 136-145 [facility] Comment on above: Performed By: #### L 500.4050, L100.0100 #### [facility] [address] [place], [address] T PROT 6.6 g/dL Normal 6.4-8.2 [facility] Comment on above: Performed By: #### L 500.4050, L100.0100 #### [facility] [address] [place], [address] Urea nitrogen [Mass/Vol] 11 mg/dL Normal 7-18 [facility] Comment on above: Performed By: #### L 500.4050, L100.0100 #### [facility] [address] [place], [address] Emergency Department Summary on 11-11-2024 Emergency Department Summary [facility] Medical Records Department [address] [place] [address] Emergency Department Summary 11/11/24 MR#: [id number] Acct: [id number] Name: TORI GRAY Rep #: [id number] : 1980 44 From: Buddy Hall DO [...] clarification of this denies any room spinning. [facility] Medical History Abnormal ECG Prolonged Q-T interval [...] you partic (more content not included)... Normal [facility] Eosinophil percentageOrdered By: Buddy Hall on 11-11-2024 Eosinophils/100 WBC (Bld) 1.2 % 0-5 [facility] Epithelial cells.squamous LM Ql (Urine sed)Ordered By: Buddy Hall on 11-11-2024 Epithelial cells.squamous LM.HPF (Urine sed) [#/Area] 0 /[HPF] 5-10 [facility] Erythrocyte distribution wid th ratioOrdered By: Buddy Hall on 11-11-2024 Erythrocyte distribution width (RBC) [Ratio] 13.7 % 11.6-14.6 [facility] Erythrocyte distribution wid th standard deviationOrdered By: Buddy Hall on 11-11-2024 Erythrocyte distribution width (RBC) [Entitic vol] 46.7 fL High 35.1-43.9 [facility] Estimated glomerular filtrat ion rate (GFR) AmericanOrdered By: Buddy Hall on 11-11-2024 Estimated GFR (MDRD) Amer 69 mL/min >60 [facility] Comment on above: GFR Calc Estimation of creatinine deniz aranceOrdered By: Buddy Hall on 11-11-2024 Estimated Creatinine Clearance Calc 92.31 ml/min [facility] Glomerular filtration rate ( GFR) estimationOrdered By: Buddy Hall on 11-11-2024 Estimated GFR (MDRD) Non-Af Amer 57 mL/min Low >60 [facility] Comment on above: Non- GFR Calc Glucose Ql (U)Ordered By: Smith Hall on 11-11-2024 Urine Glucose (UA) Normal mg/dl Normal [facility] Glucose measurementOrdered B y: Buddy Hall on 11-11-2024 Glucose [Mass/Vol] 233 mg/dL High 74-106 [facility] Comment on above: Glucose result great er than or equal to 200 mg/dLsuggests DIABETES MELLITUS per A.D.A. criteria. Hematocrit Auto (Bld) [Volum e fraction]Ordered By: Buddy Hall on 11-11-2024 Hematocrit (Bld) [Volume fraction] 33.1 % Low 37-47 [facility] Hemoglobin measurementOrdere d By: Buddy Hall on 11-11-2024 Hemoglobin (Bld) [Mass/Vol] 11.4 g/dL Low 12.0-15.0 [facility] Immature granulocytes/100 WB C Auto (Bld)Ordered By: Buddy Hall on 11-11-2024 Immature granulocytes/100 WBC (Bld) 1.200 % High 0.0-0.9 [facility] Comment on above: IG% - Immature Granu locytes (promyelocytes, myelocytes and metamyelocytes) > 1% indicates that a LEFT SHIFT is Present. Influenza virus A and B and SARS-CoV-2 (COVID-19) and Respiratory syncytial virus RNAOrdered By: Buddy Hall on 11-11-2024 SARS-CoV-2 (COVID-19) RNA ALLYSON+probe Ql (Unsp spec) [facility] Ketones Test strip Ql (U)Ord ered By: Buddy Hall on 11-11-2024 Ketones Ql (U) 5 mg/dl High Negative [facility] - Chemistry and C hemistry - challengeOrdered By: Buddy Hall on 11-11-2024 AST [Catalytic activity/Vol] 16 U/L 15-37 [facility] Lymphocytes Auto (Unsp spec) [#/Vol]Ordered By: Buddy Hall on 11-11-2024 Lymphocytes (Bld) [#/Vol] 0.72 10*3/uL Low 0.83-4.51 [facility] Lymphocytes/100 WBC Auto (Un sp spec)Ordered By: Buddy Hall on 11-11-2024 Lymphocytes/100 WBC (Bld) 9.2 % Low 19-41 [facility] M100.678on 11-11-2024 M100.678 Pending SARS-CoV-2 (COVID 19) Negative INFLUENZA A Negative INFLUENZA B Negative RSV PCR Negative Normal [facility] Comment on above: Performed By: #### M 100.678, L400.0001 ####[facility] [address] [place], [place], [id number] MCV (mean corpuscular volume ) determinationOrdered By: Buddy Hall on 11-11-2024 MCV (RBC) [Entitic vol] 92.5 fL 81-[address] [facility] Magnesiumon 11-11-2024 Magnesium [Mass/Vol] 1.7 mg/dL Normal 1.6-2.6 [facility] Comment on above: Performed By: #### L 501.5200 ####[facility] [address] [facility] [place], [place], [id number] Magnesium measurementOrdered By: Buddy Hall on 11-11-2024 Magnesium [Mass/Vol] 1.7 mg/dL 1.6-2.6 [facility] Mean corpuscular hemoglobin (MCH) determinationOrdered By: Buddy Hall on 11-11-2024 MCH (RBC) [Entitic mass] 31.8 pg 27.0-32.0 [facility] Mean corpuscular hemoglobin concentration (MCHC) determinationOrdered By: Buddy Hall on 11-11-2024 MCHC (RBC) [Mass/Vol] 34.4 g/dL 32-36 [facility] Mean platelet volume determi nationOrdered By: Buddy Hall on 11-11-2024 Platelet mean volume (Bld) [Entitic vol] 9.6 fL 6.2-12.0 [facility] Microscopic analysis of urin e for red blood cells (RBC)Ordered By: Buddy Hall on 11-11-2024 Urine RBC 0-5 SEEN /hpf 0-5 [facility] Monocyte percentageOrdered B y: Buddy Hall on 11-11-2024 Monocytes/100 WBC (Bld) 4.2 % 0-[address] [facility] Mucus LM Ql (Urine sed)Order ed By: Buddy Hall on 11-11-2024 Mucus Ql (Urine sed) 0 SEEN /hpf [facility] Neutrophil percentageOrdered By: Buddy Hall on 11-11-2024 Neutrophils/100 WBC (Bld) 83.8 % High 47-70 [facility] Nitrite Test strip Ql (U)Ord ered By: Buddy Hall on 11-11-2024 Nitrite Ql (U) Negative Negative [facility] Nucleated red blood cell per centageOrdered By: Buddy Hall on 11-11-2024 Nucleated RBC/100 WBC (Bld) [Ratio] 0 % 0-5 [facility] Platelet countOrdered By: Smith Hall on 11-11-2024 Platelets (Bld) [#/Vol] 108 10*3/uL Low 150-450 [facility] Potassium measurementOrdered By: Buddy Hall on 11-11-2024 Potassium [Moles/Vol] 2.6 mmol/L Low 3.5-5.1 [facility] Comment on above: Critical Result(s) C alled at: 07:34:02 11/11/2024 by: ESTEFANIA ALANIZ to Ronald Dumas. Results read back by same. Protein Test strip Ql (U)Ord ered By: Buddy Hall on 11-11-2024 Protein Ql (U) 100 mg/dl High Negative [facility] RBC Auto (Bld) [#/Vol]Ordere d By: Buddy Hall on 11-11-2024 RBC (Bld) [#/Vol] 3.58 10*6/uL Low 4.2-5.4 [facility] Serum anion gap measurementO rdered By: Buddy Hall on 11-11-2024 Anion gap [Moles/Vol] 6 mmol/L 5-15 [facility] Serum globulin measurementOr dered By: Buddy Hall on 11-11-2024 Globulin (S) [Mass/Vol] 4.0 g/dL 2.2-4.[address] [facility] Serum or plasma alanine arizmendi otransferase (ALT) measurementOrdered By: Buddy Hall on 11-11-2024 ALT [Catalytic activity/Vol] 29 U/L 13-56 [facility] Serum or plasma albumin sharron urement (mass/volume)Ordered By: Buddy Hall on 11-11-2024 Albumin [Mass/Vol] 2.6 g/dL Low 3.2-5.0 [facility] Serum or plasma alkaline toyin sphatase measurementOrdered By: Buddy Hall on 11-11-2024 ALP [Catalytic activity/Vol] 79 U/L 45-117 [facility] Serum or plasma calcium sharron urement (mass/volume)Ordered By: Buddy Hall on 11-11-2024 Calcium [Mass/Vol] 8.2 mg/dL Low 8.5-10.1 [facility] Serum or plasma creatinine m easurement (mass/volume)Ordered By: Buddy Hall on 11-11-2024 Creatinine [Mass/Vol] 1.12 mg/dL High 0.55-1.02 [facility] Comment on above: The validity of the calculated GFR & GFRAA in patients over 70 years has not been determined. Clinical correlation is essential. Serum or plasma urea nitroge n measurement (mass/volume)Ordered By: Buddy Hall on 11-11-2024 Urea nitrogen [Mass/Vol] 11 mg/dL 7-18 [facility] Sodium levelOrdered By: Ashia Hall on 11-11-2024 Sodium [Moles/Vol] 135 mmol/L Low 136-145 [facility] Total proteinOrdered By: Sim Hall on 11-11-2024 Protein [Mass/Vol] 6.6 g/dL 6.4-8.2 [facility] Urinalysis, Completeon 11-11 BACTERIA RARE Normal None Seen [facility] Comment on above: Order Comment: CLEAN CATCH Performed By: #### M 100.678, L400.0001 ####[facility] [address] [place], [address] EPI,SQUAMOUS 0-5 SEEN Normal 5-10 [facility] Comment on above: Order Comment: CLEAN CATCH Performed By: #### M 100.678, L400.0001 ####[facility] [address] [place], [address] RBC 0-5 SEEN Normal 0-5 [facility] Comment on above: Order Comment: CLEAN CATCH Performed By: #### M 100.678, L400.0001 ####[facility] [address] [place], [address] WBC 10-25 SEEN Normal 0-5 [facility] Comment on above: Order Comment: CLEAN CATCH Performed By: #### M 100.678, L400.0001 ####[facility] [address] [place], [address] Mucus Ql (Urine sed) 0 SEEN Normal [facility] Comment on above: Order Comment: CLEAN CATCH Performed By: #### M 100.678, L400.0001 ####[facility] [address] [place], [address] Urine blood detectionOrdered By: Buddy Hall on 11-11-2024 Urine Occult Blood 150 /ul High Negative [facility] Urine clarityOrdered By: Sim Hall on 11-11-2024 Clarity (U) Sl. Cloudy Clear [facility] Urine color determinationOrd ered By: Buddy Hall on 11-11-2024 Color (U) Yellow Yellow [facility] Urine cultureOrdered By: Sim Hall on 11-11-2024 Bacteria identified Cx Nom (U) Mixed Gram Pos & Gram Neg Org Abnormal [facility] Urine leukocyte esterase det ection by dipstickOrdered By: Buddy Hall on 11-11-2024 Leukocyte esterase Test strip Ql (U) 500 /ul High Negative [facility] Urine pHOrdered By: Buddy samuel on 11-11-2024 pH (U) 6.5 [pH] 5.0 - 8.0 [facility] Urine specific gravity measu rementOrdered By: Buddy Hall on 11-11-2024 Specific gravity (U) [Rel density] 1.010 1.002-1.030 [facility] Urobilinogen Ql (U)Ordered B y: Buddy Hall on 11-11-2024 Urine Urobilinogen Normal mg/dl Normal [facility] White blood cell (WBC) count Ordered By: Buddy Hall on 11-11-2024 WBC (Bld) [#/Vol] 7.8 10*3/uL 4.4-11.0 [facility] White blood cell countOrdere d By: Buddy Hall on 11-11-2024 Urine WBC 10-25 SEEN /hpf 0-5 [facility] Chiropractic Reporton 2023 Chiropractic Report [facility] [address] [place] [address] OFFICE VISIT Date of Service: 10/19/24 MR#: [id number] Acct: [id number] Name: TORI GRAY Rep #: [id number] : 1980 Provider: CONCEPCIÓN Montgomery Age/Sex: 44/F Location: [facility] Status: Signed Intake Vital Signs 03/09/24 14:53 [...] Adverse Reaction (Intermediate, Verified 10/19/24 09:22) Hives [facility] Medical History Abnormal ECG Prolonged Q-T interval [...] pain. She reports falling at work at [employer] Saturday. She was setting dishes down when [...] spine nor (more content not included)... Normal [facility] Brain/Head without Contrast [facility] Imaging Services [address] [place], [place] [address] Brain/Head without Contrast MR#: [id number] Acct: [id number] Name: TORI GRAY Rep #: [id number] : 1980 F 44 From: Samir Brito MD PCP: Dr. Ivette Grimes MD Status: REG ER Study: Brain/Head without Contrast Date of Exam: 10/04 01/25 Exam# [id number] Ordering Dr: Angel Ji LEAD GENERATION SPECIALIST-C -[id number] INDICATION: fall EXAMINATION: CT BRAIN - [...] CC: FADUMO Ji; Dr. Ivette Grimes MD Contract Preparer: Signed Normal [facility] Emergency Department Summary on 10-16-2024 Emergency Department Summary [facility] Medical Records Department [address] [place] [address] Emergency Department Summary 10/16/24 MR#: [id number] Acct: [id number] Name: TORI GRAY Rep #: [id number] : 1980 44 From: Sam Pearl MD [...] back pain. This will be Worker's Comp. [facility] Medical History Abnormal ECG Prolonged Q-T interval [...] home: Yes (more content not included)... Normal [facility] HIP, UNI W/ Pelvis 2-3 Views on 10-16-2024 HIP, UNI W/ Pelvis 2-3 Views [facility] Imaging Services [address] [place], [place] [id number] HIP, UNI W/ Pelvis 2-3 Views MR#: [id number] Acct: [id number] Name: ISAACTORI ROBIN Rep #: [id number] : 1980 F 44 From: Samir Brito MD PCP: Dr. Ivette Grimes MD Status: REG ER Study: HIP, UNI W/ Pelvis 2-3 Views Date of Exam: Exam# [id number] Ordering Dr: Angel Ji [id number] INDICATION: right hip EXAMINATION/TECHNIQ UE: X-RAY [...] CC: FADUMO Ji; Dr. Ivette Grimes MD Contract Preparer: Signed Normal [facility] Lumbar Spine 2 or 3 Viewson 10-16-2024 Lumbar Spine 2 or 3 Views [facility] Imaging Services [address] [place], [place] [id number] Lumbar Spine 2 or 3 Views MR#: [id number] Acct: [id number] Name: TORI GRAY Rep #: [id number] : 1980 F 44 From: Samir Brito MD PCP: Dr. Ivette Grimes MD Status: REG ER Study: Lumbar Spine 2 or 3 Views Date of Exam: Exam# [id number] Ordering Dr: Angel Ji [id number] INDICATION: fall EXAMINATION/TECHNIQ UE: X-RAY - [...] CC: FADUMO Ji; Dr. Ivette Grimes MD Contract Preparer: Signed Normal [facility] Spine Cervical without Contr ason 10-16-2024 Spine Cervical without Contras [facility] Imaging Services [address] [place] [address] Spine Cervical without Contras MR#: [id number] Acct: [id number] Name: TORI GRAY Rep #: [id number] : 1980 F 44 From: Samir Brito MD PCP: Dr. Ivette Grimes MD Status: REG ER Study: Spine Cervical without Contras Date of Exam: 12/17/23 Exam# [id number] Ordering Dr: Angel Ji LEAD GENERATION SPECIALISTPrasad [id number] INDICATION: fall EXAMINATION: CT SPINE - [...] Signed: Samir Brito MD at 21:23 EST Reading Location ID and State: [facility] / [place] Tel , Service support , CC: FADUMO Ji; Dr. Ivette Grimes MD Contract Preparer: Signed Normal [facility] Chiropractic Reporton 2023 Chiropractic Report [facility] [address] [place] [address] OFFICE VISIT Date of Service: 09/09/24 MR#: [id number] Acct: [id number] Name: TORI GRAY Rep #: [id number] : 1980 Provider: CONCEPCIÓN Montgomery Age/Sex: 44/F Location: [facility] Status: Signed Intake Vital Signs 03/09/24 14:53 [...] less physic (more content not included)... [facility] Office Visit ([facility]) ---- ISAACTORI Ivan ([id number]) 1980 F Date Time Provider Department 09/03/24 1:[address] [facility] During your visit today, we recorded the [...] days/month: 0 (0 headache-free hours) Migraine severity: 10 After treatment with Onabotulinum Toxin A: Number [...] for migraine Informed Consent Consent Obtained: Written [place] Protocol A moment to CARE was completed [...] applicable Written Consent Obtained: Written LOT #: [id number] Expiration Date: Month: Year: 2025 Second vial: LOT #: [id number] Expiration Date: Month: Year: 2025 Injection Sites Left (Units) Left (Sites) Right (Units) Right (Sites) TOTAL (Units) Nurse Researcher 5 1 5 1 10 Procerus Units: [...] for further instructions. Referring Provider: FATUMA BECKFORD [[id number]] Allergies As of Date: 09/03/2024 Noted Allergy Reaction FARXIGA (DAP (more content not included)... Normal [facility] ---- TORI GRAY ([id number]) 1980 F Date Time Provider Department 09/01/[address] [facility] During your visit today, we recorded the following information about you: Steph Nieto 09/01/2024 3:33 PM Signed 09/10 Shakeel appt [...] needed for wheezing/shortness of breath. - Ipratropium [place] (ATROVENT) 21 mcg (0.03 %) nasal spray [...] Each by INTRAUTERINE route as directed. - [place]-3 Fatty Acids (FISH OIL) 500 mg cap Take 1 capsule by mouth once daily. - blood sugar diagnostic (BLOOD GLUCOSE TEST) test strip Test blood sugar(s) 1 times daily. Dx: Type 2 DM - Controlled E11.9 Insulin: Yes - Lancets lancets Test blood sugar(s) 1 times daily. Dx: Type 2 DM - Controlled E11.9 Insulin: No - Tmdstgou-Mr-Kvu-Fe- FA tab Take 1 tablet by mouth [...] 05/06/2009 01/23/2010 Routine general medical examination at [facility]*01/23/2010 12/06/2012 Class: Chronic Routine gynecological examination [Z01.419] 01/23/2010 02/22/2014 Class: Chronic Morbid Obesity [E66.01] 01/23/2010 Lumbar Disc Disorder [M51.9] 02/16/2010 Routine general medical examination at [facility]*12/06/2012 02/22/2014 Anxiety [F41.9] 06/07/2014 Type 2 diabetes [...] 08/16/2022 Fall (more content not included)... [facility] ---- TORI GRAY ([id number]) 1980 F Date Time Provider Department 09/01/[address] [facility] During your visit today, we recorded the following information about you: Rebecca Baker 09/01/2024 4:11 PM Signed Tori was Ok'ed to get her botox appointment moved into a new patient time due to frequent rescheduling of this visit. She is now scheduled for , 09/03. She has also requested a refill of her [facility] ODT medication. Please adviseRebecca Allergies As of Date: 09/01/2024 Noted Allergy Reaction FARXIGA (DAPAGLIFLOZIN) 08/05/2024 8 - GI Upset LIDOCAINE 12/24/2019 4 - Hives METFORMIN 08/05/2024 8 - GI Upset STEROIDS (BETAMETHASONE DIPROPION* 2 4 - Hives Date Reviewed: 08/05/2024 Reviewed by: Nirmala Storey LPN - Fully Assessed Reason for Visit: Patient Question [1477] Order(s):rimegepant (NURTEC ODT) 75 mg disintegrating tabletTake [...] needed for wheezing/shortness of breath. - Ipratropium [place] (ATROVENT) 21 mcg (0.03 %) nasal spray [...] Each by INTRAUTERINE route as directed. - [place]-3 Fatty Acids (FISH OIL) 500 mg cap Take 1 capsule by mouth once daily. - blood sugar diagnostic (BLOOD GLUCOSE TEST) test strip Test blood sugar(s) 1 times daily. Dx: Type 2 DM - Controlled E11.9 Insulin: Yes - Lancets lancets Test blood sugar(s) 1 times daily. Dx: Type 2 DM - Controlled E11.9 Insulin: No - Iolaqnec-Qd-Ghx-Fe- FA tab Take 1 tablet by mouth [...] 05/06/2009 01/23/2010 Routine general medical examination at [facility]*01/23/2010 12/06/2012 Class: Chronic Routine gynecological examination [Z01.419] 01/23/2010 02/22/2014 Class: Chronic Morbid Obesity [E66.01] 01/23/2010 Lumbar Disc Disorder [M51.9] 02/16/2010 Routine general medical examination at [facility]*12/06/2012 02/22/2014 Anxiety [F41.9] 06/07/2014 Type 2 diabetes [...] mellitus [Z86. (more content not included)... Normal [facility] Chiropractic Reporton 2023 Chiropractic Report [facility] [address] [place] [address] OFFICE VISIT Date of Service: 08/25/24 MR#: [id number] Acct: [id number] Name: TORI GRAY Rep #: [id number] : 1980 Provider: CONCEPCIÓN Montgomery Age/Sex: 44/F Location: [facility] Status: Signed Intake Vital Signs 03/09/24 14:53 Height 5 ft 7 in Intake Visit Reasons: Back pain Chief Complaint: low Back pain/neck pain Is patient in pain?: Yes Pain scale (1-10): 7 Allergies Corticosteroids (Glucocorticoids) (steroids) Allergy (Verified 08/25/24 09:29) Hives lidocaine Adverse Reaction (Intermediate, Verified 08/25/24 09:29) Hives PFSH Medical History Abnormal ECG Prolonged [...] L5 a (more content not included)... Normal [facility] Chiropractic Reporton 2023 Chiropractic Report [facility] [address] [place] [address] [id number] OFFICE VISIT Date of Service: 08/13/24 MR#: [id number] Acct: [id number] Name: TORI GRAY Rep #: [id number] : 1980 Provider: CONCEPCIÓN Mongtomery Age/Sex: 44/F Location: [facility] Status: Signed Intake Vital Signs 03/09/24 14:53 [...] glute and thig (more content not included)... [facility] 08-11-2024 CNPN Telephone ([facility]) ---- TORI GRAY ([id number]) 1980 F Date Time Provider Department 08/11/[address] [facility] During your visit today, we recorded the following information about you: Steph Nieto 08/11/2024 3:34 PM Signed Shakeel appt on 09/10 moved to 3 PM. [...] needed for wheezing/shortness of breath. - Ipratropium [place] (ATROVENT) 21 mcg (0.03 %) nasal spray [...] Each by INTRAUTERINE route as directed. - [place]-3 Fatty Acids (FISH OIL) 500 mg cap Take 1 capsule by mouth once daily. - blood sugar diagnostic (BLOOD GLUCOSE TEST) test strip Test blood sugar(s) 1 times daily. Dx: Type 2 DM - Controlled E11.9 Insulin: Yes - Lancets lancets Test blood sugar(s) 1 times daily. Dx: Type 2 DM - Controlled E11.9 Insulin: No - Mwaeremd-Lp-Zme-Fe- FA tab Take 1 tablet by mouth [...] 02/16/2010 Routine general medical examination at a [facility]*12/06/2012 02/22/2014 Anxiety [F41.9] 06/07/2014 Type 2 diabetes [...] 09/04/2022 11 (more content not included)... 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 Excited for this because will not be as physical. Reviewed labs recently done at [facility]. A1c was 6.7. ldl was 105. Hdl [...] as needed for wheezing/shortness of breath. Ipratropium [place] (ATROVENT) 21 mcg (0.03 %) nasal spray [...] 1 Each by INTRAUTERINE route as directed. [place]-3 Fatty Acids (FISH OIL) 500 mg cap Take 1 capsule by mouth once daily. blood sugar diagnostic (BLOOD GLUCOSE TEST) test strip Test blood sugar(s) 1 times daily. Dx: Type 2 DM - Controlled E11.9 Insulin: Yes Lancets lancets Test blood sugar(s) 1 times daily. Dx: Type 2 DM - Controlled E11.9 Insulin: No Rmxuivdr-Vz-Yod-Fe- FA tab Take 1 tablet by mouth [...] Age of Onset Alcohol/Drug Mother Heart Father [place] Cancer Father PANCREATIC CANCER Diabetes Father Coronary [...] surgical h (more content not included)... [facility] Tele[facility] ([facility]) ---- TORI GRAY ([id number]) 1980 F Date Time Provider Department 08/05/24 [facility] During your visit today, we recorded the following information about you: Dennise Robles MA 08/06/2024 10:44 AM Signed APPROVAL. OZEMPIC. EOC # [id number] VALIDITY DATES 08/06/24-08/05/25 Pharmacy informed. Dennise Robles MA Allergies As of Date: 08/05/2024 Noted Allergy Reaction FARXIGA (DAPAGLIFLOZIN) 08/05/2024 8 - GI Upset LIDOCAINE 12/24/2019 4 - Hives METFORMIN 08/05/2024 8 - GI Upset STEROIDS (BETAMETHASONE DIPROPION* 2 4 - Hives Date Reviewed: 08/05/2024 Reviewed by: Nirmala Storey LPN - Fully Assessed Reason for Visit: Insurance Authorization [[id number]] Cmt: Ozempic Prescriptions as of 08/06/2024 - [...] needed for wheezing/shortness of breath. - Ipratropium [place] (ATROVENT) 21 mcg (0.03 %) nasal spray [...] Each by INTRAUTERINE route as directed. - [place]-3 Fatty Acids (FISH OIL) 500 mg cap Take 1 capsule by mouth once daily. - blood sugar diagnostic (BLOOD GLUCOSE TEST) test strip Test blood sugar(s) 1 times daily. Dx: Type 2 DM - Controlled E11.9 Insulin: Yes - Lancets lancets Test blood sugar(s) 1 times daily. Dx: Type 2 DM - Controlled E11.9 Insulin: No - Eyomcyzd-Bh-Vmb-Fe- FA tab Take 1 tablet by mouth [...] 01/23/2010 Routine general medical examination at a [facility]*01/23/2010 12/06/2012 Class: Chronic Routine gynecological examination [Z01.419] [...] 09/04/2022 11 (more content not included)... Normal [facility] Chiropractic Reporton 2023 Chiropractic Report [facility] [address] [place] [address] OFFICE VISIT Date of Service: 07/30/24 MR#: [id number] Acct: [id number] Name: TORI GRAY Rep #: [id number] : 1980 Provider: CONCEPCIÓN Montgomery Age/Sex: 44/F Location: [facility] Status: Signed Intake Vital Signs 03/09/24 14:53 Height 5 ft 7 in Intake Visit Reasons: Back pain Chief Complaint: low Back pain Is patient in pain?: Yes Pain scale (1-10): 8 Allergies Corticosteroids (Glucocorticoids) (steroids) Allergy (Verified 07/30/24 10:58) Hives lidocaine Adverse Reaction (Intermediate, Verified 07/30/24 10:58) Hives [facility] Medical History Abnormal ECG Prolonged Q-T interval [...] L4, Thoracic (more content not included)... Normal [facility] Chest PA and Lateralon 07-22 Chest PA and Lateral [facility] Imaging Services [address] [place] [address] Chest PA and Lateral MR#: [id number] Acct: [id number] Name: TORI GRAY Rep #: [id number] : 1980 F 44 From: Gregorio barry MD PCP: Dr. Ivette Grimes MD Status: [facility] Study: Chest PA and Lateral Date of Exam: 07/22/24 Exam# [id number] Ordering Dr: Ivette Grimes MD -[id number] STUDY: X-RAY CHEST REASON FOR EXAM: [...] EDT , CC: Dr. Ivette Grimes MD Contract Preparer: Signed [facility]2024 [facility] TORI G[facility] ([id number]) 1980 F Date Time Provider Department 07/21/24 [facility] During your visit today, we recorded the following information about you: Gale Bower RN 07/21/2024 1:46 PM Signed Patient calls and states that cough is not getting any better. Patient states that Dr. rGimes had told her that if cough had not improved that provider wanted to order her a chest xray. Please review and advise, PEPE Marx William J, MD 07/21/2024 2:18 PM Signed ordered Ingrid Salmon MA 07/21/2024 3:03 PM Signed Pt notified. Requested to have order faxed to [facility]. Order faxed. Ingrid Salmon MA Allergies As of Date: 07/21/2024 Noted Allergy Reaction LIDOCAINE 12/24/2019 4 - Hives STEROIDS (BETAMETHASONE DIPROPION* 2 4 - Hives Date Reviewed: 07/03/2024 Reviewed by: Nirmala Storey LPN - Fully Assessed Reason for Visit: Orders [681] Primary Visit Diagnosis:Cough, unspecified type [R05.9] Order(s):XR CHEST 2V FRONTAL/LAT [[id number]] Order #: [id number] FUTURE Prescriptions as of 07/21/2024 - dapagliflozin [...] needed for wheezing/shortness of breath. - Ipratropium [place] (ATROVENT) 21 mcg (0.03 %) nasal spray [...] Each by INTRAUTERINE route as directed. - [place]-3 Fatty Acids (FISH OIL) 500 mg cap Take 1 capsule by mouth once daily. - blood sugar diagnostic (BLOOD GLUCOSE TEST) test strip Test blood sugar(s) 1 times daily. Dx: Type 2 DM - Controlled E11.9 Insulin: Yes - Lancets lancets Test blood sugar(s) 1 times daily. Dx: Type 2 DM - Controlled E11.9 Insulin: No - Ewntsmjg-Qm-Adk-Fe- FA tab Take 1 tablet by mouth [...] 05/06/2009 01/23/2010 Routine general medical examination at [facility]*01/23/2010 12/06/2012 Class: Chronic Routine gynecological examination [Z01.419] 01/23/2010 02/22/2014 Class: Chronic Morbid Obesity [E66.01] 01/23/2010 Lumbar Disc Disorder [M51.9] 02/16/2010 Rout[facility] general medical examination at [facility]*12/06/2012 02/22/2014 Anxiety [F41.9] 06/07/2014 Type 2 diabetes [...] lumbar intervertebr (more content not included)... Normal [facility] Chiropractic Reporton 2023 Chiropractic Report [facility] Chiropractic [facility] [place] [address] OFFICE VISIT Date of Service: 07/16/24 MR#: [id number] Acct: [id number] Name: TORI GRAY Rep #: [id number] : 1980 Provider: CONCEPCIÓN Montgomery Age/Sex: 44/F Location: [facility] Status: Signed Intake Vital Signs 03/09/24 14:53 Height 5 ft 7 in Intake Visit Reasons: Back pain Chief Complaint: low Back pain Is patient in pain?: Yes Pain scale (1-10): 5 Allergies Corticosteroids (Glucocorticoids) (steroids) Allergy (Verified 07/16/24 11:27) Hives lidocaine Adverse Reaction (Intermediate, Verified 07/16/24 11:27) [facility] History Abnormal ECG Prolonged Q-T interval [...] depending on work activities. She works at [employer] and [employer] so she is constantly on her feet [...] Response: posit (more content not included)... Normal [facility] 07-09-2024 [facility] Telephone ([facility]) ---- TORI GRAY ([id number]) 1980 F Date Time Provider Department 07/09/24 [facility] During your visit today, we recorded the [...] 07/10/2024 11:11 AM Signed Rx sent for [facility]. Lets try this Call sugars in two weeks. Nirmala Storey LPN 07/10/2024 11:17 AM Signed Left detailed message for patient. Allergies As of Date: 07/09/2024 Noted Allergy Reaction LIDOCAINE 12/24/2019 4 - Hives STEROIDS (BETAMETHASONE DIPROPION* 2 4 - Hives Date Reviewed: 07/03/2024 Reviewed by: Nirmala Storey LPN - Fully Assessed Reason for Visit: Patient Question [1477] Primary Visit Diagnosis:Type 2 diabetes mellitus with microalbuminuria, with long-term current use of insulin (HCC) [E11.29, R80.9, Z79.4] Order(s):dapagliflo zin propanediol (FARXIGA) [...] needed for wheezing/shortness of breath. - Ipratropium [place] (ATROVENT) 21 mcg (0.03 %) nasal spray [...] Each by INTRAUTERINE route as directed. - [place]-3 Fatty Acids (FISH OIL) 500 mg cap Take 1 capsule by mouth once daily. - blood sugar diagnostic (BLOOD GLUCOSE TEST) test strip Test blood sugar(s) 1 times daily. Dx: Type 2 DM - Controlled E11.9 Insulin: Yes - Lancets lancets Test blood sugar(s) 1 times daily. Dx: Type 2 DM - Controlled E11.9 Insulin: No - Mlfjqznc-Lz-Fch-Fe- FA tab Take 1 tablet by mouth [...] 05/06/2009 01/23/2010 Routine general medical examination at [facility]*01/23/2010 12/06/2012 Class: Chronic Routine gynecological examination [Z01.419] 01/23/2010 02/22/2014 Class: Chronic Morbid Obesity [E66.01] 01/23/2010 Lumbar Disc Disorder [M51.9] 02/16/2010 Routine general medical examination at [facility]*12/06/2012 02/22/2014 Anxiety [F41.9] 06/07/2014 Typ (more content not included)... Normal [facility] CNPNon 07-08-2024 CNPN Telephone (FAMPWS) ---- TORI GRAY ([id number]) 1980 F Date Time Provider Department 07/08/24 [facility] During your visit today, we recorded the following information about you: Dennise Robles MA 07/08/2024 1:15 PM Signed Labs in chart review. STEFFANIE Mcdonald William J, MD 07/08/2024 2:03 PM [...] needed for wheezing/shortness of breath. - Ipratropium [place] (ATROVENT) 21 mcg (0.03 %) nasal spray [...] Each by INTRAUTERINE route as directed. - [place]-3 Fatty Acids (FISH OIL) 500 mg cap Take 1 capsule by mouth once daily. - blood sugar diagnostic (BLOOD GLUCOSE TEST) test strip Test blood sugar(s) 1 times daily. Dx: Type 2 DM - Controlled E11.9 Insulin: Yes - Lancets lancets Test blood sugar(s) 1 times daily. Dx: Type 2 DM - Controlled E11.9 Insulin: No - Rzatbsbk-Xh-Obv-Fe- FA tab Take 1 tablet by mouth [...] 01/23/2010 Routine general medical examination at a [facility]*01/23/2010 12/06/2012 Class: Chronic Routine gynecological examination [Z01.419] 01/23/2010 02/22/2014 Class: Chronic Morbid Obesity [E66.01] 01/23/2010 Lumbar Disc Disorder [M51.9] 02/16/2010 Routine general medical examination at a [facility]*12/06/2012 02/22/2014 Anxiety [F41.9] 06/07/2014 Type 2 diabetes [...] upper extre (more content not included)... Normal [facility] HBA1C (OUTSIDE)on 07-08-2024 HbA1c (Bld) [Mass fraction] 6.7 % [facility] LIPID PANEL (OUTSIDE)on Cholesterol [Mass/Vol] 195 mg/dL [facility] Cholesterol in HDL [Mass/Vol] 35 mg/dL [facility] Cholesterol in LDL [Mass/Vol] 105 mg/dL [facility] LDL:HDL Ratio [facility] Non-HDL Cholesterol [facility] TC:HDL Ratio [facility] Triglyceride [Mass/Vol] 274 mg/dL [facility] VLDL Cholesterol [address] [facility] No Panel Informationon 07-08 [facility] CBC W/Diff, Automatedon 06-06 Absolute Lymph 2.74 X10 3/uL Normal 0.83-4.51 [facility] Comment on above: Performed By: #### L 502.0250, L500.4100, L100.0100, L500.4050, L501.9985 ####[facility] [address] [place], [address] Absolute Neut 4.8 X10 3/uL Normal 2.0-7.7 [facility] Comment on above: Performed By: #### L 502.0250, L500.4100, L100.0100, L500.4050, L501.9985 ####[facility] [address] [place], [address] Basophils/100 WBC (Bld) 0.8 % Normal 0-[address] [facility] Comment on above: Performed By: #### L 502.0250, L500.4100, L100.0100, L500.4050, L501.9985 ####[facility] [address] [place], [address] Eosinophils/100 WBC (Bld) 2.6 % Normal 0-5 [facility] Comment on above: Performed By: #### L 502.0250, L500.4100, L100.0100, L500.4050, L501.9985 ####[facility] [address] [place], [address] Erythrocyte distribution width (RBC) [Ratio] 14.0 % Normal 11.6-14.6 [facility] Comment on above: Performed By: #### L 502.0250, L500.4100, L100.0100, L500.4050, L501.9985 ####[facility] [address] [place], [address] Hematocrit (Bld) [Volume fraction] 39.0 % Normal 37-47 [facility] Comment on above: Performed By: #### L 502.0250, L500.4100, L100.0100, L500.4050, L501.9985 ####[facility] [address] [place], [address] Hemoglobin (Bld) [Mass/Vol] 13.1 g/dL Normal 12.0-15.0 [facility] Comment on above: Performed By: #### L 502.0250, L500.4100, L100.0100, L500.4050, L501.9985 ####[facility] [address] [place], [address] IG% 2.300 High 0.0-0.9 [facility] Comment on above: Result Comment: IG% - Immature Granulocytes (promyelocytes, myelocytes and metamyelocytes) > 1% indicates that a LEFT SHIFT is Present. Performed By: #### L 502.0250, L500.4100, L100.0100, L500.4050, L501.9985 ####[facility] [address] [place], [address] Lymphocytes/100 WBC (Bld) 32.5 % Normal 19-41 [facility] Comment on above: Performed By: #### L 502.0250, L500.4100, L100.0100, L500.4050, L501.9985 ####[facility] [address] [place], [address] MCH (RBC) [Entitic mass] 31.2 pg Normal 27.0-32.0 [facility] Comment on above: Performed By: #### L 502.0250, L500.4100, L100.0100, L500.4050, L501.9985 ####[facility] [address] [place], [address] MCHC (RBC) [Mass/Vol] 33.6 g/dL Normal 32-36 [facility] Comment on above: Performed By: #### L 502.0250, L500.4100, L100.0100, L500.4050, L501.9985 ####[facility] [address] [place], [address] MCV (RBC) [Entitic vol] 92.9 fL Normal 81-[address] [facility] Comment on above: Performed By: #### L 502.0250, L500.4100, L100.0100, L500.4050, L501.9985 ####[facility] [address] [place], [address] Monocytes/100 WBC (Bld) 5.1 % Normal 0-[address] [facility] Comment on above: Performed By: #### L 502.0250, L500.4100, L100.0100, L500.4050, L501.9985 ####[facility] [address] [place], [address] Neutrophils/100 WBC (Bld) 56.7 % Normal 47-70 [facility] Comment on above: Performed By: #### L 502.0250, L500.4100, L100.0100, L500.4050, L501.9985 ####[facility] [address] [place], [address] Nucleated RBC (Bld) [#/Vol] 0 10*3/uL Normal 0-5 [facility] Comment on above: Performed By: #### L 502.0250, L500.4100, L100.0100, L500.4050, L501.9985 ####[facility] [address] [place], [address] Platelet mean volume (Bld) [Entitic vol] 9.2 fL Normal 6.2-12.0 [facility] Comment on above: Performed By: #### L 502.0250, L500.4100, L100.0100, L500.4050, L501.9985 ####[facility] [address] [place], [address] Platelets (Bld) [#/Vol] 196 10*3/uL Normal 150-450 [facility] Comment on above: Performed By: #### L 502.0250, L500.4100, L100.0100, L500.4050, L501.9985 ####[facility] [address] [place], [address] RBC (Bld) [#/Vol] 4.20 10*6/uL Normal 4.2-5.4 [facility] Comment on above: Performed By: #### L 502.0250, L500.4100, L100.0100, L500.4050, L501.9985 ####[facility] [address] [place], [address] RDW SD 47.2 fl High 35.1-43.9 [facility] Comment on above: Performed By: #### L 502.0250, L500.4100, L100.0100, L500.4050, L501.9985 ####[facility] [address] [place], [address] WBC (Bld) [#/Vol] 8.4 10*3/uL Normal 4.4-11.0 [facility] Comment on above: Performed By: #### L 502.0250, L500.4100, L100.0100, L500.4050, L501.9985 ####[facility] [address] [place], [address] Comprehensive Metabolic [facility] 07-04-2024 Albumin [Mass/Vol] 3.6 g/dL Normal 3.2-5.0 [facility] Comment on above: Performed By: #### L 502.0250, L500.4100, L100.0100, L500.4050, L501.9985 ####[facility] [address] [place], [address] Albumin/Globulin [Mass ratio] 0.9 {ratio} Normal 0.9-2.4 [facility] Comment on above: Performed By: #### L 502.0250, L500.4100, L100.0100, L500.4050, L501.9985 ####[facility] [address] [place], [address] ALK P 96 U/L Normal 45-117 [facility] Comment on above: Performed By: #### L 502.0250, L500.4100, L100.0100, L500.4050, L501.9985 ####[facility] [address] [place], [address] ALT [Catalytic activity/Vol] 41 U/L Normal 13-56 [facility] Comment on above: Performed By: #### L 502.0250, L500.4100, L100.0100, L500.4050, L501.9985 ####[facility] [address] [place], [address] AST [Catalytic activity/Vol] 32 U/L Normal 15-37 [facility] Comment on above: Performed By: #### L 502.0250, L500.4100, L100.0100, L500.4050, L501.9985 ####[facility] [address] [place], [address] Bilirubin [Mass/Vol] 0.40 mg/dL Normal 0.20-1.00 [facility] Comment on above: Result Comment: For patients on eltrombopag therapy, use of Dimension [place] TBIL is not recommended. Performed By: #### L 502.0250, L500.4100, L100.0100, L500.4050, L501.9985 ####[facility] [address] [place], [address] BUN/CRE 13.9 RATIO Normal 10-20 [facility] Comment on above: Performed By: #### L 502.0250, L500.4100, L100.0100, L500.4050, L501.9985 ####[facility] [address] [place], [address] CA,Total 8.9 mg/dL Normal 8.5-10.1 [facility] Comment on above: Performed By: #### L 502.0250, L500.4100, L100.0100, L500.4050, L501.9985 ####[facility] [address] [place], [address] Chloride [Moles/Vol] 107 mmol/L Normal 98-107 [facility] Comment on above: Performed By: #### L 502.0250, L500.4100, L100.0100, L500.4050, L501.9985 ####[facility] [address] [place], [address] CO2 [Moles/Vol] 22.0 mmol/L Normal 21.0-32.0 [facility] Comment on above: Performed By: #### L 502.0250, L500.4100, L100.0100, L500.4050, L501.9985 ####[facility] [address] [place], [address] Creatinine [Mass/Vol] 0.79 mg/dL Normal 0.55-1.02 [facility] Comment on above: Result Comment: The validity of the calculated GFR GFRAA in patients over 70 years has not been determined. Clinical correlation is essential. Performed By: #### L 502.0250, L500.4100, L100.0100, L500.4050, L501.9985 ####[facility] [address] [place], [address] EST GFR - AA 103 mL/min Normal >60 [facility] Comment on above: Result Comment: Afri can Omani GFR Calc Performed By: #### L 502.0250, L500.4100, L100.0100, L500.4050, L501.9985 ####[facility] [address] [place], [address] GAP 8 Normal 5-15 [facility] Comment on above: Performed By: #### L 502.0250, L500.4100, L100.0100, L500.4050, L501.9985 ####[facility] [address] [place], [address] GFR/1.73 sq M.predicted among non-blacks MDRD (S/P/Bld) [Vol rate/Area] 85 mL/min/{1.73_m2} Normal >60 [facility] Comment on above: Result Comment: Non- GFR Calc Performed By: #### L 502.0250, L500.4100, L100.0100, L500.4050, L501.9985 ####[facility] [address] [place], [address] Globulin (S) [Mass/Vol] 3.9 g/dL Normal 2.2-4.2 [facility] Comment on above: Performed By: #### L 502.0250, L500.4100, L100.0100, L500.4050, L501.9985 ####[facility] [address] [place], [address] Glucose [Mass/Vol] 186 mg/dL High 74-106 [facility] Comment on above: Result Comment: Fast ing Glucose result greater than or equal to 126 mg/dL suggests DIABETES MELLITUS per A.D.A. criteria. Performed By: #### L 502.0250, L500.4100, L100.0100, L500.4050, L501.9985 ####[facility] [address] [place], [address] Potassium [Moles/Vol] 3.8 mmol/L Normal 3.5-5.1 [facility] Comment on above: Performed By: #### L 502.0250, L500.4100, L100.0100, L500.4050, L501.9985 ####[facility] [address] [place], [address] Sodium [Moles/Vol] 137 mmol/L Normal 136-145 [facility] Comment on above: Performed By: #### L 502.0250, L500.4100, L100.0100, L500.4050, L501.9985 ####[facility] [address] [place], [address] T PROT 7.5 g/dL Normal 6.4-8.2 [facility] Comment on above: Performed By: #### L 502.0250, L500.4100, L100.0100, L500.4050, L501.9985 ####[facility] [address] [place], [address] Urea nitrogen [Mass/Vol] 11 mg/dL Normal 7-18 [facility] Comment on above: Performed By: #### L 502.0250, L500.4100, L100.0100, L500.4050, L501.9985 ####[facility] [address] [place], [address] Hemoglobin A1con 07-04-2024 HbA1c (Bld) [Mass fraction] 6.7 % High 3.8-5.6 [facility] Comment on above: Result Comment: Norm al < 5.7 % Prediabetic 5.7 - 6.4 % Diabetic >or= 6.5 % Please note range changes. Performed By: #### L 502.0250, L500.4100, L100.0100, L500.4050, L501.9985 ####[facility] [address] [place], [address] Lipid Profileon 07-04-2024 Cholesterol [Mass/Vol] 195 mg/dL Normal 200 [facility] Comment on above: Result Comment: <200 mg/dL Desirable 200-240 mg/dL Borderline >240 mg/dL High Risk Performed By: #### L 502.0250, L500.4100, L100.0100, L500.4050, L501.9985 ####[facility] [address] [place], [address] Cholesterol in HDL [Mass/Vol] 35 mg/dL Low [facility] Comment on above: Result Comment: The drugs N-Acetylcysteine and Metamizole may falsely depress this assay. Reference Range HDL <40 mg/dL Low HDL Cholesterol HDL >or= 60 mg/dL High HDL Cholesterol Performed By: #### L 502.0250, L500.4100, L100.0100, L500.4050, L501.9985 ####[facility] [address] [place], [address] Cholesterol in LDL [Mass/Vol] 105 mg/dL Normal 0-130 [facility] Comment on above: Performed By: #### L 502.0250, L500.4100, L100.0100, L500.4050, L501.9985 ####[facility] [address] [place], [address] Cholesterol in VLDL [Mass/Vol] 55 mg/dL High 5-40 [facility] Comment on above: Performed By: #### L 502.0250, L500.4100, L100.0100, L500.4050, L501.9985 ####[facility] [address] [place], [address] Triglyceride [Mass/Vol] 274 mg/dL High [facility] Comment on above: Result Comment: The drugs N-Acetylcysteine and Metamizole may falsely depress this assay. Serum Triglycerides Reference Interval Normal <150 mg/dL Borderline high 150 - 199 mg/dL High 200 - 499 mg/dL Very High > or = 500 mg/dL Performed By: #### L 502.0250, L500.4100, L100.0100, L500.4050, L501.9985 ####[facility] [address] [place], [address] MICROALBUMIN/CREATININE UR W RATIO (EXTERNAL)Ordered By: Lubna Yoon on 07-04-2024 Albumin/Creat Ratio 93 [facility] Creatinine Urine [address] [facility] Microalbumin, Random urine 153 [facility] Microalb:Creat Ratio,Random URon 07-04-2024 Creatinine [Mass/Vol] 164.00 mg/dL Normal NO RAN GE EST. [facility] Comment on above: Performed By: #### L 502.0250, L500.4100, L100.0100, L500.4050, L501.9985 ####[facility] [address] [place], [place], [address] MALB:CRE 93.3 mg/g CRE High <30 mg/g CRE [facility] Comment on above: Performed By: #### L 502.0250, L500.4100, L100.0100, L500.4050, L501.9985 ####[facility] [address] [place], [place], [address] MICROALBUMIN,UR 153.0 mg/L Normal NO RANGE EST. [facility] Comment on above: Performed By: #### L 502.0250, L500.4100, L100.0100, L500.4050, L501.9985 ####[facility] [address] [place], [place], [address] CNOVon 07-03-2024 [facility] ---- TORI GRAY ([id number]) 1980 F Date Time Provider Department 07/03/24 3:40 PM [facility] During your visit today, we recorded [...] as needed for wheezing/shortness of breath. Ipratropium [place] (ATROVENT) 21 mcg (0.03 %) nasal spray [...] 1 Each by INTRAUTERINE route as directed. [place]-3 Fatty Acids (FISH OIL) 500 mg cap Take 1 capsule by mouth once daily. blood sugar diagnostic (BLOOD GLUCOSE TEST) test strip Test blood sugar(s) 1 times daily. Dx: Type 2 DM - Controlled E11.9 Insulin: Yes Lancets lancets Test blood sugar(s) 1 times daily. Dx: Type 2 DM - Controlled E11.9 Insulin: No Sapeizms-Om-Rtt-Fe- FA tab Take 1 tablet by mouth [...] Age of Onset Alcohol/Drug Mother Heart Father [place] Cancer Father PANCREATIC CANCER Diabetes Father Coronary [...] in no (more content not included)... Normal [facility] Reporton 2023 Chiropractic Report [facility] [address] [place] [address] OFFICE VISIT Date of Service: 07/02/24 MR#: [id number] Acct: [id number] Name: TORI GRAY Rep #: [id number] : 1980 Provider: CONCEPCIÓN Mccarty Do ssi Age/Sex: 44/F Location: [facility] Status: Signed Intake Vital Signs 03/09/24 14:53 [...] or tingling (more content not included)... Normal [facility] 06-04-2024 [facility] Tele[facility] ([facility]) ---- TORI GRAY ([id number]) 1980 F Date Time Provider Department 06/04/[address] [facility] During your visit today, we recorded the following information about you: Claribel rWight LPN 06/04/2024 2:23 PM Signed Prior Authorization PENDING Prior Authorization Request From: [facility] Medication/ Treatment: Nurtec Submitted Via Cover My Meds Reference# (if available): (Santos: [id number]) Claribel Wright LPN 06/04/2024 3:39 PM Signed Prior Auth Determination: Denied with Cover my meds. Received via: M Medication/ Treatment: Nurtec Reason: Outcome N/A today by [facility] 2017 [facility] Prior Authorization Department does not manage Prior Authorizations for this plan. Please contact member services phone number on the back of the member ID card. Appeal Information (if included): Re submitted via [employer] Faxed to [phone] Confirmation received Fatuma Brower RN 07/28/2024 3:12 PM Addendum Received fax from [facility] asking for [facility] PA with Cover My Meds Santos [id number]. Submitted this santos on Cover My Meds, and was directed to contact [employer] at [phone]. Called this phone number, opened . They state the previous case submitted June 04 was closed due to lack of information on questionnaires faxed 5 times to [phone]. Asked that they fax the [place] office the questionnaire again. Awaiting fax and will complete in [place] to request PA. Fatuma Brower RN 07/28/2024 3:34 PM Signed Received questionnaire, completed and placed in Fatuma Beckford PA-C [place] inbox to review and sign. Fatuma Brower RN 08/06/2024 11:54 AM Signed Faxed prior auth form. While pending, placed prior auth forms in the nurses station filing cabinet in [place]. Darrion Severino MA 08/20/2024 9:55 AM Signed Prior Auth Determination: Approved Medication/ Treatment: [facility] Auth Information: Approval found in scanned docs Approved 08/06/2024 - 08/05/2025 Scan on 08/06/2024 by Provider, External, PAReneeC: [facility] Approval Allergies As of Date: 06/04/2024 Noted Allergy Reaction LIDOCAINE 12/24/2019 4 - Hives STEROIDS (BETAMETHASONE DIPROPION* 2 4 - Hives Date Reviewed: 04/02/2024 Reviewed by: Fatuma Beckford PA-C - Fully Assessed Reason for Visit: Insurance Authorization [1623] Cmt: [facility] Prescriptions as of 08/20/2024 - tiZANidine (ZANAFLEX) [...] needed for wheezing/shortness of breath. - Ipratropium [place] (ATROVENT) 21 mcg (0.03 %) nasal spray [...] Each by INTRAUTERINE route as directed. - [place]-3 Fatty Acids (FISH OIL) 500 mg cap Take 1 capsule by mouth once daily. - blood sugar diagnostic (BLOOD GLUCOSE TEST) test strip Test blood sugar(s) 1 times daily. Dx: Type 2 DM - Controlled E11.9 Insulin: Yes - Lancets lancets Test blood sugar(s) 1 times daily. Dx: Type 2 DM - Controlled E11.9 Insulin: No - Tfslnqzo-Nk-Tjs-Fe- FA tab Take 1 tablet by mouth once daily. Meds Comments as of 03/01/2019: Percocet March 01, 2019 Stephanie Suresh, RN Problem List As Of Date 06/04/2024 Noted Resolved SUPERVIS NORMAL 1ST PREG [Z34.00] 11/09/2005 07/02/2006 TRANS HYPERTEN-ANTEPART [O13.9] 06/19/2006 07/02/2006 KERATOSIS PILARIS////SKIN ANOMALY NEC [Q82.8] 03/26/2007 01/23/2010 Other Acne [L70.8] (more content not included)... Normal [facility] CNCOon 06-03-2024 CNCO Letter Text Normal [facility] CNPNon 05-01-2024 GABRIELAN Telephone (FAMPST) ---- TORI GRAY ([id number]) 1980 F Date Time Provider Department 05/01/24 IVETTE GRIMES During your visit today, we recorded the following information about you: Rukhsana Wood 05/01/2024 11:53 AM Signed Tori is calling Ivette Grimes MD today to request a medication not on current med list: Tizanidine 4 mg tablet taking every 8 hours as needed #60 refill 0 Pharmacy [facility] Please send today if possible, patient is out of this medicaiton Patient has been identified by name and birthdate. Duration of symptoms: N/A Person calling: self Call patient at: on cell [phone] (home) [phone] (work) [phone] (cell) Was an appointment scheduled: No Closing statement: Results or non-symptom based questions: Thank you for calling [facility], your call will be returned within the next business day. Rukhsana [facility] Cindy Edouard APRN.TRANSFER PROFESSOR 05/01/2024 12:09 PM Signed Script sent. Cindy Edouard APRN.TRANSFER PROFESSOR Allergies As of Date: 05/01/2024 Noted Allergy [...] needed for wheezing/shortness of breath. - Ipratropium [place] (ATROVENT) 21 mcg (0.03 %) nasal spray [...] Each by INTRAUTERINE route as directed. - [place]-3 Fatty Acids (FISH OIL) 500 mg cap Take 1 capsule by mouth once daily. - blood sugar diagnostic (BLOOD GLUCOSE TEST) test strip Test blood sugar(s) 1 times daily. Dx: Type 2 DM - Controlled E11.9 Insulin: Yes - Lancets lancets Test blood sugar(s) 1 times daily. Dx: Type 2 DM - Controlled E11.9 Insulin: No - Ykoobusj-Vj-Ibd-Fe- FA tab Take 1 tablet by mouth [...] 01/23/2010 Routine general medical examination at a [facility]*01/23/2010 12/06/2012 Class: Chronic Routine gynecological examination [Z01.419] 01/23/2010 02/22/2014 Class: Chronic Morbid Obesity [E66.01] 01/23/2010 Lumbar Disc Disorder [M51.9] 02/16/2010 Routine general medical examination at [facility]*12/06/2012 02/22/2014 Anxiety [F41.9] 06/07/2014 Type 2 diabetes mellitus with microalbuminuria,*0 07/04/2018 Fatty liver [K76.0] 07/21/2018 LETITIA (obstructive sleep apnea) [G47.33] 07/21/2018 Microalbuminuria [R80.9] 09/30/2018 09/04/2022 Obes (more content not included)... Normal [facility] CNPNon 04-14-2024 CNPN Telephone (FAMWS) ---- TORI GRAY ([id number]) 1980 F Date Time Provider Department 04/14/24 [facility] During your visit today, we recorded the following information about you: Mirna Santos MA 04/15/2024 9:01 AM Signed Submitted PA through [employer] [place] for Trulicity 0.75 mg. Form faxed with [...] Fully Assessed Reason for Visit: Insurance Authorization [[id number]] Cmt: Trulicity Prescriptions as of 04/15/2024 - [...] days. Take one po qhs - Ipratropium [place] (ATROVENT) 21 mcg (0.03 %) nasal spray [...] Each by INTRAUTERINE route as directed. - [place]-3 Fatty Acids (FISH OIL) 500 mg cap Take 1 capsule by mouth once daily. - blood sugar diagnostic (BLOOD GLUCOSE TEST) test strip Test blood sugar(s) 1 times daily. Dx: Type 2 DM - Controlled E11.9 Insulin: Yes - Lancets lancets Test blood sugar(s) 1 times daily. Dx: Type 2 DM - Controlled E11.9 Insulin: No - Xksitlow-Sd-Pxx-Fe- FA tab Take 1 tablet by mouth [...] 05/06/2009 01/23/2010 Routine general medical examination at [facility]*01/23/2010 12/06/2012 Class: Chronic Routine gynecological examination [Z01.419] 01/23/2010 02/22/2014 Class: Chronic Morbid Obesity [E66.01] 01/23/2010 Lumbar Disc Disorder [M51.9] 02/16/2010 Routine general medical examination at [facility]*12/06/2012 02/22/2014 Anxiety [F41.9] 06/07/2014 Type 2 diabetes [...] diarrhea [R11.2, (more content not included)... Normal [facility] Absolute lymphocyte countOrd ered By: Sam Pearl on 02-04-2024 Lymphocytes Auto (Unsp spec) [#/Vol] 2.24 10*3/uL 0.83-4.51 [facility] Automated lymphocyte count a s percentage of total leukocytesOrdered By: Sam Pearl on 02-04-2024 Lymphocytes/100 WBC Auto (Unsp spec) 19.8 % 19-41 [facility] Basophil percentageOrdered B y: Sam Pearl on 02-04-2024 Basophils/100 WBC (Bld) 0.4 % 0-[address] [facility] Chloride [Moles/Vol] 106 mmol/L 98-107 [facility] Eosinophils/100 WBC (Bld) 0.9 % 0-5 [facility] Glucose [Mass/Vol] 246 mg/dL 74-106 [facility] Comment on above: Glucose result great er than or equal to 200 mg/dLsuggests DIABETES MELLITUS per A.D.A. criteria. Hemoglobin (Bld) [Mass/Vol] 11.2 g/dL 12.0-15.0 [facility] Monocytes/100 WBC (Bld) 6.6 % 0-10 [facility] Neutrophils (Bld) [#/Vol] 8.0 10*3/uL 2.0-7.7 [facility] Neutrophils/100 WBC (Bld) 71.0 % 47-70 [facility] Potassium [Moles/Vol] 3.6 mmol/L 3.5-5.1 [facility] Sodium [Moles/Vol] 135 mmol/L 136-145 [facility] WBC (Bld) [#/Vol] 11.3 10*3/uL 4.4-11.0 [facility] Basophil percentage 10-25 SEEN /hpf 0-5 [facility] Bilirubin Test strip Ql (U)O rdered By: Sam Pearl on 02-04-2024 Bilirubin Ql (U) Negative Negative [facility] Determination of erythrocyte mean corpuscular volume (MCV)Ordered By: Sam Pearl on 02-04-2024 MCV (RBC) [Entitic vol] 89.5 fL 81-[address] [facility] Erythrocyte distribution wid th ratioOrdered By: Sam Pearl on 02-04-2024 Erythrocyte distribution width (RBC) [Ratio] 13.2 % 11.6-14.6 [facility] Erythrocyte distribution wid th standard deviationOrdered By: Sam Pearl on 02-04-2024 Erythrocyte distribution width (RBC) [Entitic vol] 43.2 fL 35.1-43.9 [facility] Hematocrit Auto (Bld) [Volum e fraction]Ordered By: Sam Pearl on 02-04-2024 Hematocrit (Bld) [Volume fraction] 34.2 % 37-47 [facility] Immature granulocytes/100 WB C Auto (Bld)Ordered By: Sam Pearl on 02-04-2024 Immature granulocytes/100 WBC (Bld) 1.300 % 0.0-0.9 [facility] Comment on above: IG% - Immature Granu locytes (promyelocytes, myelocytes and metamyelocytes) > 1% indicates that a LEFT SHIFT is Present. Ketones Test strip Ql (U)Ord ered By: Sam Pearl on 02-04-2024 Ketones Ql (U) Negative Negative [facility] Laboratory - Chemistry and C hemistry - challengeOrdered By: Sam Pearl on 02-04-2024 CO2 [Moles/Vol] 21.0 mmol/L 21.0-32.0 [facility] Urea nitrogen/Creatinine [Mass ratio] 15.0 mg/mg 10-20 [facility] - Hematology and Cell countsOrdered By: Sam Pearl on 02-04-2024 MCH (RBC) [Entitic mass] 29.3 pg 27.0-32.0 [facility] MCHC (RBC) [Mass/Vol] 32.7 g/dL 32-36 [facility] Nucleated RBC/100 WBC (Bld) [Ratio] 0 % 0-5 [facility] Platelet mean volume (Bld) [Entitic vol] 9.2 fL 6.2-12.0 [facility] Platelets (Bld) [#/Vol] 203 10*3/uL 150-450 [facility] - Microbiology an d Antimicrobial susceptibilityOrdered By: Sam Pearl on 02-04-2024 SARS-CoV-2 (COVID-19) RNA ALLYSON+probe Ql (Unsp spec) [facility] Mucus LM Ql (Urine sed)Order ed By: Sam Pearl on 02-04-2024 Mucus Ql (Urine sed) 0 SEEN /hpf [facility] Nitrite Test strip Ql (U)Ord ered By: Sam Pearl on 02-04-2024 Nitrite Ql (U) Negative Negative [facility] No Panel InformationOrdered By: Sam Pearl on 02-04-2024 Estimated Creatinine Clearance Calc 116.68 ml/min [facility] Estimated GFR (MDRD) Amer 92 mL/min >60 [facility] Comment on above: GFR Calc Estimated GFR (MDRD) Non-Af Amer 76 mL/min >60 [facility] Comment on above: Non- GFR Calc Urine RBC 0-5 SEEN /hpf 0-5 [facility] Protein Test strip Ql (U)Ord ered By: Sam Pearl on 02-04-2024 Protein Ql (U) 15 mg/dl Negative [facility] RBC Auto (Bld) [#/Vol]Ordere d By: Sam Pearl on 02-04-2024 RBC (Bld) [#/Vol] 3.82 10*6/uL 4.2-5.4 [facility] Serum or plasma calcium sharron urement (mass/volume)Ordered By: Sam Pearl on 02-04-2024 Calcium [Mass/Vol] 8.4 mg/dL 8.5-10.1 [facility] Serum or plasma creatinine m easurement (mass/volume)Ordered By: Sam Pearl on 02-04-2024 Creatinine [Mass/Vol] 0.87 mg/dL 0.55-1.02 [facility] Comment on above: The validity of the calculated GFR & GFRAA in patients over 70 years has not been determined. Clinical correlation is essential. Serum or plasma urea nitroge n measurement (mass/volume)Ordered By: Sam Pearl on 02-04-2024 Urea nitrogen [Mass/Vol] 13 mg/dL 7-18 [facility] Squamous epithelial cells de tection in urine sediment by light microscopyOrdered By: Sam Pearl on 02-04-2024 Epithelial cells.squamous LM Ql (Urine sed) 0-5 SEEN /hpf 5-10 [facility] Thin prep Papanicolaou smear with manual screeningOrdered By: Sam Pearl on 02-04-2024 Thin prep Papanicolaou smear with manual screening 8 5-15 [facility] Urine blood detectionOrdered By: Sam Pearl on 02-04-2024 RBC Ql (U) 10 /ul Negative [facility] Urine clarityOrdered By: Ramses Pearl on 02-04-2024 Clarity (U) Clear Clear [facility] Urine color determinationOrd ered By: Sam Pearl on 02-04-2024 Color (U) Yellow Yellow [facility] Urine glucose detectionOrder ed By: Sam Pearl on 02-04-2024 Glucose Ql (U) Normal mg/dl Normal [facility] Urine leukocyte esterase det ection by dipstickOrdered By: Sam Pearl on 02-04-2024 Leukocyte esterase Test strip Ql (U) 100 /ul Negative [facility] Urine pHOrdered By: Sam Pearl on 02-04-2024 pH (U) 7.0 [pH] 5.0 - 8.0 [facility] Urine sediment bacteria coun t by microscopy (number/high power field)Ordered By: Sam Pearl on 02-04-2024 Bacteria LM.HPF (Urine sed) [#/Area] 4 /[HPF] None Seen [facility] Urine specific gravity measu rementOrdered By: Sam Pearl on 02-04-2024 Specific gravity (U) [Rel density] 1.010 1.002-1.030 [facility] Urine urobilinogen measureme ntOrdered By: Sam Pearl on 02-04-2024 Urobilinogen Ql (U) Normal mg/dl Normal [facility] Absolute lymphocyte countOrd ered By: Ivette Patinoo on 12-06-2023 Lymphocytes Auto (Unsp spec) [#/Vol] 2.89 10*3/uL 0.83-4.51 [facility] Automated lymphocyte count a s percentage of total leukocytesOrdered By: Ivette Grimes on 12-06-2023 Lymphocytes/100 WBC Auto (Unsp spec) 27.0 % 19-41 [facility] Basophil percentageOrdered B y: Ivette Grimes on 12-06-2023 Basophils/100 WBC (Bld) 0.7 % 0-1 [facility] Bilirubin [Mass/Vol] 0.50 mg/dL 0.20-1.00 [facility] Comment on above: For patients on eltr ombopag therapy, use of Dimension [place] TBIL is not recommended. Chloride [Moles/Vol] 113 mmol/L 98-107 [facility] Cholesterol [Mass/Vol] 202 mg/dL <200 [facility] Comment on above: <200 mg/dL Desirable 200-240 mg/dL Borderline >240 mg/dL High Risk Eosinophils/100 WBC (Bld) 1.4 % 0-5 [facility] Glucose [Mass/Vol] 113 mg/dL 74-106 [facility] Comment on above: Fasting Glucose resu lt from 100 to 125 mg/dL suggests IMPAIRED HOMEOSTASIS per A.D.A. criteria. Hemoglobin (Bld) [Mass/Vol] 13.1 g/dL 12.0-15.0 [facility] Monocytes/100 WBC (Bld) 3.6 % 0-[address] [facility] Neutrophils (Bld) [#/Vol] 7.1 10*3/uL 2.0-7.7 [facility] Neutrophils/100 WBC (Bld) 66.3 % 47-70 [facility] Potassium [Moles/Vol] 4.0 mmol/L 3.5-5.1 [facility] Protein [Mass/Vol] 8.7 g/dL 6.4-8.2 [facility] Sodium [Moles/Vol] 138 mmol/L 136-145 [facility] Triglyceride [Mass/Vol] 192 mg/dL <[address] [facility] Comment on above: The drugs N-Acetylcy steine and Metamizole may falsely depress this assay.Serum Triglycerides Reference Interval Normal <150 mg/dL Borderline high 150 - 199 mg/dL High 200 - 499 mg/dL Very High > or = 500 mg/dL WBC (Bld) [#/Vol] 10.7 10*3/uL 4.4-11.0 [facility] Determination of erythrocyte mean corpuscular volume (MCV)Ordered By: Ivette Grimes on 12-06-2023 MCV (RBC) [Entitic vol] 92.8 fL 81-[address] [facility] Erythrocyte distribution wid th ratioOrdered By: Ivette Grimes on 12-06-2023 Erythrocyte distribution width (RBC) [Ratio] 13.1 % 11.6-14.6 [facility] Erythrocyte distribution wid th standard deviationOrdered By: Ivette Grimes on 12-06-2023 Erythrocyte distribution width (RBC) [Entitic vol] 44.4 fL 35.1-43.9 [facility] Hematocrit Auto (Bld) [Volum e fraction]Ordered By: Ivette Grimes on 12-06-2023 Hematocrit (Bld) [Volume fraction] 39.9 % 37-47 [facility] Immature granulocytes/100 WB C Auto (Bld)Ordered By: Ivette Grimes on 12-06-2023 Immature granulocytes/100 WBC (Bld) 1.000 % 0.0-0.9 [facility] Comment on above: IG% - Immature Granu locytes (promyelocytes, myelocytes and metamyelocytes) > 1% indicates that a LEFT SHIFT is Present. Laboratory - Chemistry and C hemistry - challengeOrdered By: Ivette Grimes on 12-06-2023 Albumin/Globulin [Mass ratio] 0.9 {ratio} 0.9-2.4 [facility] ALP [Catalytic activity/Vol] 80 U/L 45-117 [facility] ALT [Catalytic activity/Vol] 24 U/L 13-56 [facility] Cholesterol in HDL (Body fld) [Mass/Vol] 36 mg/dL >40 [facility] Comment on above: The drugs N-Acetylcy steine and Metamizole may falsely depress this assay. Reference Range HDL <40 mg/dL Low HDL Cholesterol HDL >or= 60 mg/dL High HDL Cholesterol Cholesterol in LDL (Body fld) [Moles/Vol] 128 mg/dL 0-130 [facility] Cholesterol in VLDL Calc [Moles/Vol] 38 mg/dL 5-40 [facility] CO2 [Moles/Vol] 19.0 mmol/L 21.0-32.0 [facility] Globulin (S) [Mass/Vol] 4.6 g/dL 2.2-4.2 [facility] Urea nitrogen/Creatinine [Mass ratio] 25.9 mg/mg 10-20 [facility] Laboratory - Hematology and Cell countsOrdered By: Ivette Grimes on 12-06-2023 MCH (RBC) [Entitic mass] 30.5 pg 27.0-32.0 [facility] MCHC (RBC) [Mass/Vol] 32.8 g/dL 32-36 [facility] Nucleated RBC/100 WBC (Bld) [Ratio] 0 % 0-5 [facility] Platelets (Bld) [#/Vol] 241 10*3/uL 150-450 [facility] No Panel InformationOrdered By: Ivette Girmes on 12-06-2023 Estimated GFR (MDRD) Amer 90 mL/min >60 [facility] Comment on above: GFR Calc Estimated GFR (MDRD) Non-Af Amer 74 mL/min >60 [facility] Comment on above: Non- GFR Calc Platelet mean volume Jose-Ec ker (Bld) [Entitic vol]Ordered By: Ivette Grimes on 12-06-2023 Platelet mean volume (Bld) [Entitic vol] 8.8 fL 6.2-12.0 [facility] RBC Auto (Bld) [#/Vol]Ordere d By: Ivette Grimes on 12-06-2023 RBC (Bld) [#/Vol] 4.30 10*6/uL 4.2-5.4 [facility] Serum or plasma calcium sharron urement (mass/volume)Ordered By: Ivette Grimes on 12-06-2023 Calcium [Mass/Vol] 9.1 mg/dL 8.5-10.1 [facility] Serum or plasma creatinine m easurement (mass/volume)Ordered By: Ivette Grimes on 12-06-2023 Creatinine [Mass/Vol] 0.89 mg/dL 0.55-1.02 [facility] Comment on above: The validity of the calculated GFR & GFRAA in patients over 70 years has not been determined. Clinical correlation is essential. Serum or plasma urea nitroge n measurement (mass/volume)Ordered By: Ivette Grimes on 12-06-2023 Urea nitrogen [Mass/Vol] 23 mg/dL 7-18 [facility] Thin prep Papanicolaou smear with manual screeningOrdered By: Ivette Grimes on 12-06-2023 Thin prep Papanicolaou smear with manual screening 4.1 g/dL 3.2-5.0 [facility] Thin prep Papanicolaou smear with manual screening 11 U/L 15-37 [facility] Thin prep Papanicolaou smear with manual screening 6 5-15 [facility] Whole blood hemoglobin A1c/t otal hemoglobin ratio (mass fraction)Ordered By: Ivette Grimes on 12-06-2023 HbA1c (Bld) [Mass fraction] 5.7 % 3.8-5.6 [facility] Comment on above: Normal < 5.7 % Predi abetic 5.7 - 6.4 % Diabetic >or= 6.5 % Please note range changes. Glucose Glucometer (BldC) [M ass/Vol]Ordered By: Sosa Mendez on 08-07-2023 Glucose [Mass/Vol] 157 mg/dL 74-106 [facility] Comment on above: MANAGEMENT OF PATIEN T CARE PER NURSING PROTOCOL Absolute lymphocyte countOrd ered By: Sosa Mendez on 08-06-2023 Lymphocytes Auto (Unsp spec) [#/Vol] 2.45 10*3/uL 0.83-4.51 [facility] Basophil percentageOrdered B y: Sosa Mendez on 08-06-2023 Basophils/100 WBC (Bld) 0.8 % 0-1 [facility] Chloride [Moles/Vol] 111 mmol/L 98-107 [facility] Cholesterol [Mass/Vol] 173 mg/dL <200 [facility] Comment on above: <200 mg/dL Desirable 200-240 mg/dL Borderline >240 mg/dL High Risk Eosinophils/100 WBC (Bld) 3.1 % 0-5 [facility] Glucose [Mass/Vol] 143 mg/dL 74-106 [facility] Comment on above: Fasting Glucose resu lt greater than or equal to 126 mg/dL suggests DIABETES MELLITUS per A.D.A. criteria. Neutrophils (Bld) [#/Vol] 3.9 10*3/uL 2.0-7.7 [facility] Neutrophils/100 WBC (Bld) 54.5 % 47-70 [facility] Potassium [Moles/Vol] 3.6 mmol/L 3.5-5.1 [facility] Sodium [Moles/Vol] 139 mmol/L 136-145 [facility] Triglyceride [Mass/Vol] 325 mg/dL <[address] [facility] Comment on above: The drugs N-Acetylcy steine and Metamizole may falsely depress this assay.Serum Triglycerides Reference Interval Normal <150 mg/dL Borderline high 150 - 199 mg/dL High 200 - 499 mg/dL Very High > or = 500 mg/dL WBC (Bld) [#/Vol] 7.1 10*3/uL 4.4-11.0 [facility] Blood erythrocytes count (nu mber/volume)Ordered By: Sosa Mendez on 08-06-2023 RBC (Bld) [#/Vol] 4.15 10*6/uL 4.2-5.4 [facility] Blood hemoglobin measurement (mass/volume)Ordered By: Sosa Mendez on 08-06-2023 Hemoglobin (Bld) [Mass/Vol] 13.0 g/dL 12.0-15.0 [facility] Blood lymphocytes/100 leukoc ytesOrdered By: Sosa Mendez on 08-06-2023 Lymphocytes/100 WBC (Bld) 34.4 % 19-41 [facility] Blood monocytes/100 leukocyt esOrdered By: Sosa Mendez on 08-06-2023 Monocytes/100 WBC (Bld) 5.2 % 0-[address] [facility] Blood platelet mean volumeOr dered By: Sosa Mendez on 08-06-2023 Platelet mean volume (Bld) [Entitic vol] 9.4 fL 6.2-12.0 [facility] Determination of erythrocyte mean corpuscular volume (MCV)Ordered By: Sosa Mendez on 08-06-2023 MCV (RBC) [Entitic vol] 95.4 fL 81-[address] [facility] Hematocrit Auto (Bld) [Volum e fraction]Ordered By: Sosa Mendez on 08-06-2023 Hematocrit (Bld) [Volume fraction] 39.6 % 37-47 [facility] - Chemistry and C hemistry - challengeOrdered By: Sosa Mendez on 08-06-2023 CO2 [Moles/Vol] 23.0 mmol/L 21.0-32.0 [facility] Urea nitrogen/Creatinine [Mass ratio] 15.4 mg/mg 10-20 [facility] - Hematology and Cell countsOrdered By: Sosa Mendez on 08-06-2023 Erythrocyte distribution width (RBC) [Entitic vol] 45.4 fL 35.1-43.9 [facility] Erythrocyte distribution width (RBC) [Ratio] 13.0 % 11.6-14.6 [facility] Immature granulocytes/100 WBC (Bld) 2.000 % 0.0-0.9 [facility] Comment on above: IG% - Immature Granu locytes (promyelocytes, myelocytes and metamyelocytes) > 1% indicates that a LEFT SHIFT is Present. MCH (RBC) [Entitic mass] 31.3 pg 27.0-32.0 [facility] Nucleated RBC/100 WBC (Bld) [Ratio] 0 % 0-5 [facility] MCHC Auto (RBC) [Mass/Vol]Or dered By: Sosa Mendez on 08-06-2023 MCHC (RBC) [Mass/Vol] 32.8 g/dL 32-36 [facility] No Panel InformationOrdered By: Sosa Mendez on 08-06-2023 Estimated Creatinine Clearance Calc 92.30 ml/min [facility] Estimated GFR (MDRD) Amer 104 mL/min >60 [facility] Comment on above: GFR Calc Estimated GFR (MDRD) Non-Af Amer 86 mL/min >60 [facility] Comment on above: Non- GFR Calc Platelets bldOrdered By: Shanell Mendez on 08-06-2023 Platelets (Bld) [#/Vol] 184 10*3/uL 150-450 [facility] Serum or plasma calcium sharron urement (mass/volume)Ordered By: Sosa Mendez on 08-06-2023 Calcium [Mass/Vol] 8.2 mg/dL 8.5-10.1 [facility] Serum or plasma cholesterol in HDL measurement (mass/volume)Ordered By: Sosa Mendez on 08-06-2023 Cholesterol in HDL [Mass/Vol] 29 mg/dL >40 [facility] Comment on above: The drugs N-Acetylcy steine and Metamizole may falsely depress this assay. Reference Range HDL <40 mg/dL Low HDL Cholesterol HDL >or= 60 mg/dL High HDL Cholesterol Serum or plasma cholesterol in VLDL measurement (mass/volume)Ordered By: Sosa Mendez on 08-06-2023 Cholesterol in VLDL [Mass/Vol] 65 mg/dL 5-40 [facility] Serum or plasma creatinine m easurement (mass/volume)Ordered By: Sosa Mendez on 08-06-2023 Creatinine [Mass/Vol] 0.78 mg/dL 0.55-1.02 [facility] Comment on above: The validity of the calculated GFR & GFRAA in patients over 70 years has not been determined. Clinical correlation is essential. Serum or plasma low density lipoprotein (LDL) cholesterol measurement (mass/volume)Ordered By: Sosa Mendez on 08-06-2023 Cholesterol in LDL [Mass/Vol] 79 mg/dL 0-130 [facility] Serum or plasma urea nitroge n measurement (mass/volume)Ordered By: Sosa Mendez on 08-06-2023 Urea nitrogen [Mass/Vol] 12 mg/dL 7-18 [facility] Thin prep Papanicolaou smear with manual screeningOrdered By: Sosa Mendez on 08-06-2023 Thin prep Papanicolaou smear with manual screening 5 5-15 [facility] Absolute lymphocyte countOrd ered By: Niurka Kendall on 08-05-2023 Lymphocytes Auto (Unsp spec) [#/Vol] 2.33 10*3/uL 0.83-4.51 [facility] Basophil percentageOrdered B y: Niurka Kendall on 08-05-2023 Basophils/100 WBC (Bld) 0.9 % 0-[address] [facility] Chloride [Moles/Vol] 110 mmol/L 98-107 [facility] Eosinophils/100 WBC (Bld) 2.6 % 0-5 [facility] Glucose [Mass/Vol] 108 mg/dL 74-106 [facility] Comment on above: Fasting Glucose resu lt from 100 to 125 mg/dL suggests IMPAIRED HOMEOSTASIS per A.D.A. criteria. Neutrophils (Bld) [#/Vol] 4.7 10*3/uL 2.0-7.7 [facility] Neutrophils/100 WBC (Bld) 59.9 % 47-70 [facility] Potassium [Moles/Vol] 3.7 mmol/L 3.5-5.1 [facility] Sodium [Moles/Vol] 140 mmol/L 136-145 [facility] WBC (Bld) [#/Vol] 7.8 10*3/uL 4.4-11.0 [facility] Blood erythrocytes count (nu mber/volume)Ordered By: Niurka Kendall on 08-05-2023 RBC (Bld) [#/Vol] 4.04 10*6/uL 4.2-5.4 [facility] Blood hemoglobin measurement (mass/volume)Ordered By: Niurka Kendall on 08-05-2023 Hemoglobin (Bld) [Mass/Vol] 12.9 g/dL 12.0-15.0 [facility] Blood lymphocytes/100 leukoc ytesOrdered By: Niurka Kendall on 08-05-2023 Lymphocytes/100 WBC (Bld) 30.1 % 19-41 [facility] Blood monocytes/100 leukocyt esOrdered By: Niurka Kendall on 08-05-2023 Monocytes/100 WBC (Bld) 5.2 % 0-[address] [facility] Blood platelet mean volumeOr dered By: Niurka Kendall on 08-05-2023 Platelet mean volume (Bld) [Entitic vol] 9.7 fL 6.2-12.0 [facility] COVID-19 virus antigen assay Ordered By: Niurka Kendall on 08-05-2023 SARS-CoV-2 (COVID-19) Ag IA.rapid Ql (Resp) [facility] SARS-CoV-2 (COVID-19) Ag IA.rapid Ql (Resp) [facility] Determination of erythrocyte mean corpuscular volume (MCV)Ordered By: Niurka Kendall on 08-05-2023 MCV (RBC) [Entitic vol] 97.8 fL 81-[address] [facility] Glucose Glucometer (BldC) [M ass/Vol]Ordered By: Niurka Kendall on 08-05-2023 Glucose [Mass/Vol] 120 mg/dL 74-106 [facility] Comment on above: MANAGEMENT OF PATIEN T CARE PER NURSING PROTOCOL Hematocrit Auto (Bld) [Volum e fraction]Ordered By: Niurka Kendall on 08-05-2023 Hematocrit (Bld) [Volume fraction] 39.5 % 37-47 [facility] INR in Blood by Coagulation assayOrdered By: Niurka Kendall on 08-05-2023 INR Coag (Bld) [Relative time] 1.1 {INR} [facility] - Chemistry and C hemistry - challengeOrdered By: Niurka Kendall on 08-05-2023 CO2 [Moles/Vol] 24.0 mmol/L 21.0-32.0 [facility] Urea nitrogen/Creatinine [Mass ratio] 20.8 mg/mg 10-20 [facility] - CoagulationOrde red By: Niurka Kendall on 08-05-2023 aPTT Coag (Bld) [Time] 32.7 s 24.1-36.2 [facility] PT Coag (PPP) [Time] 14.4 s 11.7-14.9 [facility] Laboratory - Hematology and Cell countsOrdered By: Niurka Kendall on 08-05-2023 Erythrocyte distribution width (RBC) [Entitic vol] 47.0 fL 35.1-43.9 [facility] Erythrocyte distribution width (RBC) [Ratio] 13.1 % 11.6-14.6 [facility] Immature granulocytes/100 WBC (Bld) 1.300 % 0.0-0.9 [facility] Comment on above: IG% - Immature Granu locytes (promyelocytes, myelocytes and metamyelocytes) > 1% indicates that a LEFT SHIFT is Present. MCH (RBC) [Entitic mass] 31.9 pg 27.0-32.0 [facility] Nucleated RBC/100 WBC (Bld) [Ratio] 0 % 0-5 [facility] MCHC Auto (RBC) [Mass/Vol]Or dered By: Niurka Kendall on 08-05-2023 MCHC (RBC) [Mass/Vol] 32.7 g/dL 32-36 [facility] No Panel InformationOrdered By: Niurka Kendall on 08-05-2023 Estimated Creatinine Clearance Calc 99.99 ml/min [facility] Estimated GFR (MDRD) Amer 115 mL/min >60 [facility] Comment on above: GFR Calc Estimated GFR (MDRD) Non-Af Amer 95 mL/min >60 [facility] Comment on above: Non- GFR Calc Thyroid Stimulating Hormone (TSH) 1.54 uIU/mL 0.358-3.74 [facility] Troponin I High Sensitivity 4 pg/mL 3.0-54.0 [facility] Comment on above: Please Note: New Ananth t Units and Gender Specific Reference Ranges. For more information see Policy Stat Procedure [place] High Sensitivity Troponin (TNIH) and attachments. Platelets bldOrdered By: Romina Kendall on 08-05-2023 Platelets (Bld) [#/Vol] 190 10*3/uL 150-450 [facility] Serum or plasma calcium sharron urement (mass/volume)Ordered By: Niurka Kendall on 08-05-2023 Calcium [Mass/Vol] 8.5 mg/dL 8.5-10.1 [facility] Serum or plasma creatinine m easurement (mass/volume)Ordered By: Niurka Kendall on 08-05-2023 Creatinine [Mass/Vol] 0.72 mg/dL 0.55-1.02 [facility] Comment on above: The validity of the calculated GFR & GFRAA in patients over 70 years has not been determined. Clinical correlation is essential. Serum or plasma urea nitroge n measurement (mass/volume)Ordered By: Niurka Kendall on 08-05-2023 Urea nitrogen [Mass/Vol] 15 mg/dL 7-18 [facility] Thin prep Papanicolaou smear with manual screeningOrdered By: Niurka Kendall on 08-05-2023 Thin prep Papanicolaou smear with manual screening 6 5-15 [facility] Whole blood hemoglobin A1c/t otal hemoglobin ratio (mass fraction)Ordered By: Sosa Mendez on 08-05-2023 HbA1c (Bld) [Mass fraction] 6.6 % 3.8-5.6 [facility] Comment on above: Normal < 5.7 % Predi abetic 5.7 - 6.4 % Diabetic >or= 6.5 % Please note range changes. XR Foot - right AP and Later al and obliqueon 05-28-2023 IMPRESSION: No acute osseous abnormalities are identified. Calcaneal spurring. Contract Preparer: DIANE Transcribe Date/Time: May 28 2023 11:55A Dictated by : BRITTANY MCCANN MD This examination was interpreted and the report reviewed and electronically signed by: BRITTANY MCCANN MD on May 28 2023 11:56AM [facility] DIVISION OF RADIOLOGY * * [...] and calcaneal enthesophytes. DIVISION OF RADIOLOGY Provider, [facility] [place] - 05/28/2023 * * *Final Report* * [...] acute osseous abnormalities are identified. Calcaneal spurring. Contract Preparer: PSCB Transcribe Date/Time: May 28 2023 11:55A Dictated by : BRITTANY MCCANN MD This examination was interpreted and the report reviewed and electronically signed by: BRITTANY MCCANN MD on May 28 2023 11:56AM EST [facility] Radiology Study observation (narrative) [facility] X[facility] Foot - right AP and Later al and obliqueOrdered By: [facility] Provider on 05-28-2023 [facility] Absolute lymphocyte countOrd ered By: Dr. Grimes on 03-04-2023 Lymphocytes Auto (Unsp spec) [#/Vol] 2.34 10*3/uL 0.83-4.51 [facility] Basophil percentageOrdered B y: Dr. Grimes on 03-04-2023 Basophils/100 WBC (Bld) 1.0 % 0-1 [facility] Chloride [Moles/Vol] 109 mmol/L 98-107 [facility] Eosinophils/100 WBC (Bld) 2.3 % 0-5 [facility] Glucose [Mass/Vol] 142 mg/dL 74-106 [facility] Comment on above: Fasting Glucose resu lt greater than or equal to 126 mg/dL suggests DIABETES MELLITUS per A.D.A. criteria. Neutrophils (Bld) [#/Vol] 5.6 10*3/uL 2.0-7.7 [facility] Neutrophils/100 WBC (Bld) 63.9 % 47-70 [facility] Potassium [Moles/Vol] 3.9 mmol/L 3.5-5.1 [facility] Sodium [Moles/Vol] 138 mmol/L 136-145 [facility] WBC (Bld) [#/Vol] 8.8 10*3/uL 4.4-11.0 [facility] Blood erythrocytes count (nu mber/volume)Ordered By: Dr. Grimes on 03-04-2023 RBC (Bld) [#/Vol] 4.38 10*6/uL 4.2-5.4 [facility] Blood hemoglobin measurement (mass/volume)Ordered By: Dr. Grimes on 03-04-2023 Hemoglobin (Bld) [Mass/Vol] 14.1 g/dL 12.0-15.0 [facility] Blood lymphocytes/100 leukoc ytesOrdered By: Dr. Grimes on 03-04-2023 Lymphocytes/100 WBC (Bld) 26.5 % 19-41 [facility] Blood monocytes/100 leukocyt esOrdered By: Dr. Grimes on 03-04-2023 Monocytes/100 WBC (Bld) 4.6 % 0-[address] [facility] Blood platelet mean volumeOr dered By: Dr. Grimes on 03-04-2023 Platelet mean volume (Bld) [Entitic vol] 9.5 fL 6.2-12.0 [facility] Determination of erythrocyte mean corpuscular volume (MCV)Ordered By: Dr. Grimes on 03-04-2023 MCV (RBC) [Entitic vol] 96.8 fL 81-[address] [facility] Hematocrit Auto (Bld) [Volum e fraction]Ordered By: Dr. Grimes on 03-04-2023 Hematocrit (Bld) [Volume fraction] 42.4 % 37-47 [facility] Iron measurement (mass/mass) Ordered By: Dr. Grimes on 03-04-2023 Iron (Unsp spec) [Mass/Mass] 92 ug/dL 50-170 [facility] - Chemistry and C hemistry - challengeOrdered By: Dr. Grimes on 03-04-2023 CO2 [Moles/Vol] 21.0 mmol/L 21.0-32.0 [facility] Magnesium [Mass/Vol] 1.7 mg/dL 1.6-2.6 [facility] Urea nitrogen/Creatinine [Mass ratio] 17.1 mg/mg 10-20 [facility] - Hematology and Cell countsOrdered By: Dr. Grimes on 03-04-2023 Erythrocyte distribution width (RBC) [Entitic vol] 48.1 fL 35.1-43.9 [facility] Erythrocyte distribution width (RBC) [Ratio] 13.3 % 11.6-14.6 [facility] Immature granulocytes/100 WBC (Bld) 1.700 % 0.0-0.9 [facility] Comment on above: IG% - Immature Granu locytes (promyelocytes, myelocytes and metamyelocytes) > 1% indicates that a LEFT SHIFT is Present. MCH (RBC) [Entitic mass] 32.2 pg 27.0-32.0 [facility] Nucleated RBC/100 WBC (Bld) [Ratio] 0 % 0-5 [facility] MCHC Auto (RBC) [Mass/Vol]Or dered By: Dr. Grimes on 03-04-2023 MCHC (RBC) [Mass/Vol] 33.3 g/dL 32-36 [facility] No Panel InformationOrdered By: Dr. Grimes on 03-04-2023 Urine Microalbumin/Creatinine Ratio 63.0 mg/g CRE <30 [facility] Estimated GFR (MDRD) Amer 99 mL/min >60 [facility] Comment on above: GFR Calc Estimated GFR (MDRD) Non-Af Amer 82 mL/min >60 [facility] Comment on above: Non- GFR Calc Total Iron Binding Capacity 323 ug/dL 250-450 [facility] Platelets bldOrdered By: Dr. Grimes on 03-04-2023 Platelets (Bld) [#/Vol] 214 10*3/uL 150-450 [facility] Serum or plasma calcium sharron urement (mass/volume)Ordered By: Dr. Grimes on 03-04-2023 Calcium [Mass/Vol] 8.4 mg/dL 8.5-10.1 [facility] Serum or plasma creatinine m easurement (mass/volume)Ordered By: Dr. Grimes on 03-04-2023 Creatinine [Mass/Vol] 0.82 mg/dL 0.55-1.02 [facility] Comment on above: The validity of the calculated GFR & GFRAA in patients over 70 years has not been determined. Clinical correlation is essential. Serum or plasma iron saturat ion measurement (mass fraction)Ordered By: Dr. Grmies on 03-04-2023 Iron saturation [Mass fraction] 28.5 % 15.0-55.0 [facility] Serum or plasma urea nitroge n measurement (mass/volume)Ordered By: Dr. Grimes on 03-04-2023 Urea nitrogen [Mass/Vol] 14 mg/dL 7-18 [facility] Thin prep Papanicolaou smear with manual screeningOrdered By: Dr. Grimes on 03-04-2023 Thin prep Papanicolaou smear with manual screening 133.0 mg/L NO RANGE EST. [facility] Thin prep Papanicolaou smear with manual screening 8 5-15 [facility] Urine creatinine measurement (mass/volume)Ordered By: Dr. Grimes on 03-04-2023 Creatinine (U) [Mass/Vol] 211.00 mg/dL NO RANGE EST. [facility] Whole blood hemoglobin A1c/t otal hemoglobin ratio (mass fraction)Ordered By: Dr. Grimes on 03-04-2023 HbA1c (Bld) [Mass fraction] 6.1 % 3.8-5.6 [facility] Comment on above: Normal < 5.7 % Predi abetic 5.7 - 6.4 % Diabetic >or= 6.5 % Please note range changes. No Panel Informationon 02-28 [facility] CNCOon 01-24-20[address] [facility] CNOVon 01-24-2023 CNOV Office Visit (SPAGWO) ---- TORI GRAY ([id number]) 1980 F Date Time Provider Department 01/24/23 10:30 AM ELLE SANCHEZ During your visit today, we recorded the following information about you: Pulse Respiration Last Period 64/minute 16/minute 01/02/23 Elle Sanchez MD 01/24/2023 11:07 AM Signed [facility] Name: Tori Gray : 1980 Purpose: Follow-up, discuss SPRINT Today's Date: 01/24/2023 Last Visit: 11/08/2022 ([facility] [employer]) Chief complaint: LEFT shoulder pain Rosiechelsey Gray is an established patient, returning today [...] palpa (more content not included)... Normal [facility] Hany 01-24-2023 GABRIELAN Telephone (SPAGWO) ---- TORI GRAY ([id number]) 1980 F Date Time Provider Department 01/24/23 ELLE SANCHEZ SPAGWO During your visit today, we recorded the following information about you: Pankaj Lidia 01/24/2023 11:46 AM Signed 1.Are you diabetic [...] 2nd dose of the COVID vaccine.) Pankaj Lidia Allergies As of Date: 01/24/2023 Noted [...] by INTRAUTERINE route as directed. - Ipratropium [place] (ATROVENT) 0.03 % nasal spray Use 2 Sprays in the nose every 12 hours. - metroNIDAZOLE (METROGEL) 0.75 % Topical Gel Apply to affected area twice daily. - [place]-3 Fatty Acids (FISH OIL) 500 mg cap Take 1 capsule by mouth once daily. - blood sugar diagnostic (BLOOD GLUCOSE TEST) test strip Test blood sugar(s) 1 times daily. Dx: Type 2 DM - Controlled E11.9 Insulin: Yes - Lancets lancets Test blood sugar(s) 1 times daily. Dx: Type 2 DM - Controlled E11.9 Insulin: No - [id number]-[id number]- FA tab Take 1 tablet by mouth [...] 01/23/2010 Routine general medical examination at a [facility]*01/23/2010 12/06/2012 Class: Chronic Routine gynecological examination [Z01.419] 01/23/2010 02/22/2014 Class: Chronic Morbid Obesity [E66.01] 01/23/2010 Lumbar Disc Disorder [M51.9] 02/16/2010 (more content not included)... Normal [facility] HCG ( test) Ql (U)o n 01-02-2023 Specific gravity (U) [Rel density] 1.010 Normal 1.005-1.030 [facility] Comment on above: Order Comment: Speci men Type: URINE SPECIMENOrdering Facility: [facility] Address: [address] [place] [id number] Performed By: #### 2 106-3 ####[facility] LABIA [id number] [place] [address] [facility] HCG Preg Ur Qlon 01-02-2023 HCG ( test) Ql (U) Negative Normal Negative [facility] Comment on above: Order Comment: Speci men Type: URINE SPECIMENOrdering Facility: [facility] Address: [place] [address] Result Comment: This test is intended to aid in the early detection of . Very dilute urine samples, as indicated by a low specific gravity, may not contain reimbursement representative levels of hCG. This test detects [...] for . Performed By: #### 2 106-3 ####[facility]IA [id number] [place] [address] [facility] HISTORY PHYSICALon HISTORY PHYSICAL HNO ID: [id number] Author: Elle Sanchez MD Service: Pain Management [...] 1/2 hr before meal. Unknown Yes Ipratropium [place] (ATROVENT) 0.03 % nasal spray Use 2 Sprays in the nose every 12 hours. Unknown Yes [place]-3 Fatty Acids (FISH OIL) 500 mg cap Take 1 capsule by mouth once daily. Patient taking differently: Take 1 tablet by mouth once daily. 1200 mg 01/02/2023 Yes blood sugar diagnostic (BLOOD GLUCOSE TEST) test strip Test blood sugar(s) 1 times daily. Dx: Type 2 DM - Controlled E11.9 Insulin: Yes Yes [id number]-Fe- FA tab Take 1 tablet by mouth [...] 02, 2023 TIME: 11:[address] [facility] OPERATIVE NOon 01-02-2023 OPERATIVE NO HNO ID: [id number] Author: Elle Sanchez MD Service: Pain Management Author Type: Physician Type: Operative Report Filed: 01/02/2023 11:29 AM Note Text: OPERATIVE/PROCEDURE REPORT LOG ID: [id number] SURGERY/PROCEDURE DATE: 01/02/2023 INCISION/PROCEDURE START TIME: 11:18 AM INCISION CLOSE/PROCEDURE END TIME: 11:25 AM SURGEON(S)/PROCEDUR BRETT(S) AND INTERNET DEVELOPER(S): Surgeon(s) and Role: * Elle Sanchez MD [...] Tori Gray DATE: January 02, 2023 TIME: 11:28 AM [facility] Hany 11-29-2022 [facility] Telephone (AGSPINE3) ---- ISAACTORI ([id number]) 1980 F Date Time Provider Department 11/29/22 ELLE SANCHEZ AGSPINE3 During your visit today, we recorded the following information about you: Darrion Barahona 11/29/2022 2:40 PM Signed Patient has left a voicemail stating that she had fallen over the weekend and has a concussion. She is wondering if she should reschedule her appointment for 12/05/22 with you in [employer] as she is not sure if this [...] reschedule. Elle Sanchez III, MD, SULEIMAN Darrion Barahona 11/30/2022 11:56 AM Signed Patient has decided to reschedule out to January 02 at [employer], message has been sent to [place]. Darrion Shah Allergies As of Date: 11/29/2022 Noted Allergy Reaction LIDOCAINE 12/24/2019 4 - Hives STEROIDS (BETAMETHASONE DIPROPION* 2 4 - Hives Date Reviewed: 11/27/2022 Reviewed by: Dennise Robles - Fully Assessed Reason for Visit: Patient Question [1377] Cmt: [employer] appointment on 12/05/22 Prescriptions as of 11/30/2022 [...] by INTRAUTERINE route as directed. - Ipratropium [place] (ATROVENT) 0.03 % nasal spray Use 2 Sprays in the nose every 12 hours. - metroNIDAZOLE (METROGEL) 0.75 % Topical Gel Apply to affected area twice daily. - [place]-3 Fatty Acids (FISH OIL) 500 mg cap Take 1 capsule by mouth once daily. - blood sugar diagnostic (BLOOD GLUCOSE TEST) test strip Test blood sugar(s) 1 times daily. Dx: Type 2 DM - Controlled E11.9 Insulin: Yes - Lancets lancets Test blood sugar(s) 1 times daily. Dx: Type 2 DM - Controlled E11.9 Insulin: No - Blzcdbhk-Tq-Wrn-Fe- FA tab Take 1 tablet by mouth [...] 01/23/2010 Routine general medical examination at a [facility]*01/23/2010 12/06/2012 Class: Chronic Routine gynecological examination [Z01.419] 01/23/2010 02/22/2014 Class: Chronic Morbid Obesity [E66.01] 01/23/2010 Lumbar Disc Disorder [M51.9] 02/16/2010 Routine general medical examination at a [facility]*12/06/2012 02/22/2014 Anxiety [F41.9] 06/07/2014 Type 2 diabetes [...] 09/04/2022 (more content not included)... Normal [facility] Glucose Glucometer (BldC) [M ass/Vol]Ordered By: Dr. Shabazz on 11-24-2022 Glucose [Mass/Vol] 89 mg/dL 74-106 [facility] Comment on above: MANAGEMENT OF PATIEN T CARE PER NURSING PROTOCOL CNOVon 11-08-2022 CNOV Office Visit (SPAGWO) ---- TORI GRAY ([id number]) 1980 F Date Time Provider Department 11/08/22 1:30 PM ADELINA MASON SPAGWO During your visit today, we recorded the [...] ideas. The patient is not nervous/anxious. Adelina Mason, THOM.TRANSFER PROFESSOR 11/08/2022 1:55 PM Signed [facility] General Today's Date: 11/08/2022 Last Visit: 07/19/22 [...] and fevers, chills, or night sweats. Recall: with Vickie Current Status: INTAKE PAIN ASSESSMENT [...] activity was identified. 11/08/2022 by Adelina Mason APRN.TRANSFER PROFESSOR Allergies: ALLERGIES Allergen Reactions Lidocaine Hives Steroids [...] vis (more content not included)... Normal [facility] CNPNon 11-08-2022 CNPN Telephone (SPAGWO) ---- TORI GRAY ([id number]) 1980 F Date Time Provider Department 11/08/22 ELLE SANCHEZ SPAGWO During your visit today, we recorded the following information about you: Vito Mancera 11/08/2022 2:06 PM Signed Procedure(s) being scheduled: [...] No 9. Does this procedure require a dray driver? Yes If yes, has patient been notified that a dray driver is needed and must be present [...] 2nd dose of the COVID vaccine.) Vito Estrella-Lidia Allergies As of Date: 11/08/2022 Noted Allergy Reaction LIDOCAINE 12/24/2019 4 - Hives STEROIDS (BETAMETHASONE DIPROPION* 2 4 - Hives Date Reviewed: 11/08/2022 Reviewed by: Adelina Mason APRN.TRANSFER PROFESSOR - Fully Assessed Reason for Visit: Injections [...] by INTRAUTERINE route as directed. - Ipratropium [place] (ATROVENT) 0.03 % nasal spray Use 2 Sprays in the nose every 12 hours. - metroNIDAZOLE (METROGEL) 0.75 % Topical Gel Apply to affected area twice daily. - [place]-3 Fatty Acids (FISH OIL) 500 mg cap Take 1 capsule by mouth once daily. - blood sugar diagnostic (BLOOD GLUCOSE TEST) test strip Test blood sugar(s) 1 times daily. Dx: Type 2 DM - Controlled E11.9 Insulin: Yes - Lancets lancets Test blood sugar(s) 1 times daily. Dx: Type 2 DM - Controlled E11.9 Insulin: No - Yxrttrgc-Ls-Qwo-Fe- FA tab Take 1 tablet by mouth [...] 01/23/2010 Lumbar (more content not included)... Normal [facility] TORI GRAY ([id number]) 1980 F Date Time Provider Department 10/02/22 ADELINA MASON AGSPINE2 During your visit today, we recorded the [...] spoke with and scheduled with Adelina in [place] beginning of the year. Adriana Licona Allergies As of Date: 10/02/2022 Noted Allergy Reaction LIDOCAINE 12/24/2019 4 - Hives STEROIDS (BETAMETHASONE DIPROPION* 2 4 - Hives Date Reviewed: 09/04/2022 Reviewed by: Dennise Robles - Fully Assessed Reason for Visit: Appointment [[id number]] Patient Question [2157] Prescriptions as of 10/02/2022 - tiZANidine (ZANAFLEX) [...] bed with current PAP mask. - Ipratropium [place] (ATROVENT) 0.03 % nasal spray Use 2 Sprays in the nose every 12 hours. - metroNIDAZOLE (METROGEL) 0.75 % Topical Gel Apply to affected area twice daily. - [place]-3 Fatty Acids (FISH OIL) 500 mg cap Take 1 capsule by mouth once daily. - blood sugar diagnostic (BLOOD GLUCOSE TEST) test strip Test blood sugar(s) 1 times daily. Dx: Type 2 DM - Controlled E11.9 Insulin: Yes - Lancets lancets Test blood sugar(s) 1 times daily. Dx: Type 2 DM - Controlled E11.9 Insulin: No - Ulpvwjvq-Av-Zah-Fe- FA tab Take 1 tablet by mouth [...] 01/23/2010 Routine general medical examination at a [facility]*01/23/2010 12/06/2012 Class: Chronic Routine gynecological examination [Z01.419] 01/23/2010 02/22/2014 Class: Chronic Morbid Obesity [E66.01] 01/23/2010 Lumbar Disc Disorder [M51.9] 02/16/2010 Routine general medical examination at [facility]*12/06/2012 02/22/2014 Anxiety [F41.9] 06/07/2014 Type 2 diabetes [...] 12/ (more content not included)... Normal [facility] Absolute lymphocyte countOrd ered By: Dr. Grimes on 09-06-2022 Lymphocytes Auto (Unsp spec) [#/Vol] 2.67 10*3/uL 0.83-4.51 [facility] Basophil percentageOrdered B y: Dr. Grimes on 09-06-2022 Basophils/100 WBC (Bld) 0.5 % 0-[address] [facility] Chloride [Moles/Vol] 110 mmol/L 98-107 [facility] Eosinophils/100 WBC (Bld) 2.1 % 0-5 [facility] Glucose [Mass/Vol] 120 mg/dL 74-106 [facility] Comment on above: Fasting Glucose resu lt from 100 to 125 mg/dL suggests IMPAIRED HOMEOSTASIS per A.D.A. criteria. Neutrophils (Bld) [#/Vol] 6.2 10*3/uL 2.0-7.7 [facility] Neutrophils/100 WBC (Bld) 64.2 % 47-70 [facility] Potassium [Moles/Vol] 3.6 mmol/L 3.5-5.1 [facility] Sodium [Moles/Vol] 139 mmol/L 136-145 [facility] WBC (Bld) [#/Vol] 9.6 10*3/uL 4.4-11.0 [facility] Blood erythrocytes count (nu mber/volume)Ordered By: Dr. Grimes on 09-06-2022 RBC (Bld) [#/Vol] 4.29 10*6/uL 4.2-5.4 [facility] Blood hemoglobin measurement (mass/volume)Ordered By: Dr. Grimes on 09-06-2022 Hemoglobin (Bld) [Mass/Vol] 13.6 g/dL 12.0-15.0 [facility] Blood lymphocytes/100 leukoc ytesOrdered By: Dr. Grimes on 09-06-2022 Lymphocytes/100 WBC (Bld) 27.8 % 19-41 [facility] Blood monocytes/100 leukocyt esOrdered By: Dr. Grimes on 09-06-2022 Monocytes/100 WBC (Bld) 4.3 % 0-[address] [facility] Blood platelet mean volumeOr dered By: Dr. Grimes on 09-06-2022 Platelet mean volume (Bld) [Entitic vol] 9.6 fL 6.2-12.0 [facility] Determination of erythrocyte mean corpuscular volume (MCV)Ordered By: Dr. Grimes on 09-06-2022 MCV (RBC) [Entitic vol] 90.2 fL 81-[address] [facility] Hematocrit Auto (Bld) [Volum e fraction]Ordered By: Dr. Grimes on 09-06-2022 Hematocrit (Bld) [Volume fraction] 38.7 % 37-47 [facility] - Chemistry and C hemistry - challengeOrdered By: Dr. Grimes on 09-06-2022 CO2 [Moles/Vol] 23.0 mmol/L 21.0-32.0 [facility] Urea nitrogen/Creatinine [Mass ratio] 15.9 mg/mg 10-20 [facility] - Hematology and Cell countsOrdered By: Dr. Grimes on 09-06-2022 Erythrocyte distribution width (RBC) [Entitic vol] 42.5 fL 35.1-43.9 [facility] Erythrocyte distribution width (RBC) [Ratio] 12.9 % 11.6-14.6 [facility] Immature granulocytes/100 WBC (Bld) 1.100 % 0.0-0.9 [facility] Comment on above: IG% - Immature Granu locytes (promyelocytes, myelocytes and metamyelocytes) > 1% indicates that a LEFT SHIFT is Present. MCH (RBC) [Entitic mass] 31.7 pg 27.0-32.0 [facility] Nucleated RBC/100 WBC (Bld) [Ratio] 0 % 0-5 [facility] MCHC Auto (RBC) [Mass/Vol]Or dered By: Dr. Grimes on 09-06-2022 MCHC (RBC) [Mass/Vol] 35.1 g/dL 32-36 [facility] No Panel InformationOrdered By: Dr. Grimes on 09-06-2022 Estimated GFR (MDRD) Amer 100 mL/min >60 [facility] Comment on above: GFR Calc Estimated GFR (MDRD) Non-Af Amer 82 mL/min >60 [facility] Comment on above: Non- GFR Calc Thyroid Stimulating Hormone (TSH) 1.56 uIU/mL 0.358-3.74 [facility] Platelets bldOrdered By: Dr. Grimes on 09-06-2022 Platelets (Bld) [#/Vol] 190 10*3/uL 150-450 [facility] Serum or plasma calcium sharron urement (mass/volume)Ordered By: Dr. Grimes on 09-06-2022 Calcium [Mass/Vol] 8.7 mg/dL 8.5-10.1 [facility] Serum or plasma creatinine m easurement (mass/volume)Ordered By: Dr. Grimes on 09-06-2022 Creatinine [Mass/Vol] 0.82 mg/dL 0.55-1.02 [facility] Comment on above: The validity of the calculated GFR & GFRAA in patients over 70 years has not been determined. Clinical correlation is essential. Serum or plasma urea nitroge n measurement (mass/volume)Ordered By: Dr. Grimes on 09-06-2022 Urea nitrogen [Mass/Vol] 13 mg/dL 7-18 [facility] Thin prep Papanicolaou smear with manual screeningOrdered By: Dr. Grimes on 09-06-2022 Thin prep Papanicolaou smear with manual screening 6 5-15 [facility] - Chemistry and C hemistry - challengeOrdered By: Dr. Guerrero on 08-29-2022 Magnesium [Mass/Vol] 1.7 mg/dL 1.6-2.6 [facility] Basophil percentageOrdered B y: Dr. Grimes on 08-08-2022 Cholesterol [Mass/Vol] 168 mg/dL <200 [facility] Comment on above: <200 mg/dL Desirable 200-240 mg/dL Borderline >240 mg/dL High Risk Triglyceride [Mass/Vol] 176 mg/dL <[address] [facility] Comment on above: The drugs N-Acetylcy steine and Metamizole may falsely depress this assay.Serum Triglycerides Reference Interval Normal <150 mg/dL Borderline high 150 - 199 mg/dL High 200 - 499 mg/dL Very High > or = 500 mg/dL Hany 08-08-2022 [facility] Telephone (AGSPHWG) ---- TORI GRAY ([id number]) 1980 F Date Time Provider Department 08/08/22 ADELINA MASON AGSPHLiamG During your visit today, we recorded the following information about you: Adelina Mason APRN.CNP 08/08/2022 12:55 PM Signed Please advise patient insurance will not approve the RFA of her shoulder. Another option would be to repeat the LEFT scapular NB, but with steroids for a therapeutic effect. If she would like to proceed with this option please let me know and will place the order. Thank you, Adelina Mason APRN.GABRIELA Murillo 08/10/2022 2:13 PM Signed Left patient a detailed message informing her of this information. Also left the number for her to call back. Allergies As of Date: 08/08/2022 Noted Allergy Reaction LIDOCAINE 12/24/2019 4 - Hives STEROIDS (BETAMETHASONE DIPROPION* 2 4 - Hives Date Reviewed: 07/19/2022 Reviewed by: Karen Bansal APRN.TRANSFER PROFESSOR - Fully Assessed Reason for Visit: Patient [...] bed with current PAP mask. - Ipratropium [place] (ATROVENT) 0.03 % nasal spray Use 2 Sprays in the nose every 12 hours. - metroNIDAZOLE (METROGEL) 0.75 % Topical Gel Apply to affected area twice daily. - [place]-3 Fatty Acids (FISH OIL) 500 mg cap Take 1 capsule by mouth once daily. - blood sugar diagnostic (BLOOD GLUCOSE TEST) test strip Test blood sugar(s) 1 times daily. Dx: Type 2 DM - Controlled E11.9 Insulin: Yes - Lancets lancets Test blood sugar(s) 1 times daily. Dx: Type 2 DM - Controlled E11.9 Insulin: No - Jwhmmygx-Lm-Dfi-Fe- FA tab Take 1 tablet by mouth [...] 05/06/2009 01/23/2010 Routine general medical examination at [facility]*01/23/2010 12/06/2012 Class: Chronic Routine gynecological examination [Z01.419] 01/23/2010 02/22/2014 Class: Chronic Morbid Obesity [E66.01] 01/23/2010 Lumbar Disc Disorder [M51.9] 02/16/2010 Routine general medical examination at [facility]*12/06/2012 02/22/2014 Anxiety [F41.9] 06/07/2014 Type 2 diabetes mellitus with microalbuminuria,*0 07/04/2018 Fatty liver [K76.0] 07/21/2018 LETITIA (obstructive sleep apnea) [G47.33] 07/21/2018 Microalbuminuria [R80.9] 09/30/2018 Obesity, Class III, BMI >= 40 [E66.01] 11/26/2019 Prolonged Q-T interval on ECG [R94.31] 03/31/2020 Encounter Status:Closed by ADELINA MASON on 08/08/22 [facility] No Panel InformationOrdered By: Dr. Grimes on 08-08-2022 Thyroid Stimulating Hormone (TSH) 3.38 uIU/mL 0.358-3.74 [facility] Serum or plasma cholesterol in HDL measurement (mass/volume)Ordered By: Dr. Grimes on 08-08-2022 Cholesterol in HDL [Mass/Vol] 37 mg/dL >40 [facility] Comment on above: The drugs N-Acetylcy steine and Metamizole may falsely depress this assay. Reference Range HDL <40 mg/dL Low HDL Cholesterol HDL >or= 60 mg/dL High HDL Cholesterol Serum or plasma cholesterol in VLDL measurement (mass/volume)Ordered By: Dr. Grimes on 08-08-2022 Cholesterol in VLDL [Mass/Vol] 35 mg/dL 5-40 [facility] Serum or plasma low density lipoprotein (LDL) cholesterol measurement (mass/volume)Ordered By: Dr. Grimes on 08-08-2022 Cholesterol in LDL [Mass/Vol] 96 mg/dL 0-130 [facility] Whole blood hemoglobin A1c/t otal hemoglobin ratio (mass fraction)Ordered By: Dr. Grimes on 08-08-2022 HbA1c (Bld) [Mass fraction] 5.3 % 3.8-5.6 [facility] Comment on above: Normal < 5.7 % Predi abetic 5.7 - 6.4 % Diabetic >or= 6.5 % Please note range changes. CNCRamona 07-19-2022 CNCO Letter Text [facility] CNOVon 07-19-2022 CNOV Office Visit (SPAGWO) ---- TORI GRAY ([id number]) 1980 F Date Time Provider Department 07/19/22 9:45 AM ADELINA MASONWAsha During your visit today, we recorded the [...] The patient is not nervous/anxious. Adelina Mason APRN.TRANSFER PROFESSOR 07/19/2022 10:17 AM Signed [facility] [place] General Today's Date: 07/19/2022 Last Visit: 05/24/22 [...] (A) 74 - 99 mg/dL Final Comment: Location:[facility], [address] [place] [address], [facility] The Accu-Chek Inform II glucose meter [...] activity was identified. 07/19/2022 by Adelina Mason APRN.TRANSFER PROFESSOR Last Drug screen: Not Applicable Risk Assessment: VAHE-7: (more content not included)... Normal [facility] CNPIliana 07-19-2022 CNPN Telephone (SPAGWO) ---- TORI GRAY ([id number]) 1980 F Date Time Provider Department 07/19/22 ELLE SANCHEZ During your visit today, we [...] year? Yes If yes, When and Where? [facility], currently attending (Medical Records Release needs to [...] Date Reviewed: 07/19/2022 Reviewed by: Adelina Mason APRN.TRANSFER PROFESSOR - Fully Assessed Reason for Visit: Patient [...] bed with current PAP mask. - Ipratropium [place] (ATROVENT) 0.03 % nasal spray Use 2 Sprays in the nose every 12 hours. - metroNIDAZOLE (METROGEL) 0.75 % Topical Gel Apply to affected area twice daily. - [place]-3 Fatty Acids (FISH OIL) 500 mg cap Take 1 capsule by mouth once daily. - blood sugar diagnostic (BLOOD GLUCOSE TEST) test strip Test blood sugar(s) 1 times daily. Dx: Type 2 DM - Controlled E11.9 Insulin: Yes - Lancets lancets Test blood sugar(s) 1 times daily. Dx: Type 2 DM - Controlled E11.9 Insulin: No - Fqaaabcz-Gl-Pid-Fe- FA tab Take 1 tablet by mouth [...] 05/06/2009 01/23/2010 Routine general medical examination at [facility]*01/23/2010 12/06/2012 Class: Chronic Routine gynecological examination [Z01.419] 01/23/2010 02/22/2014 Class: Chronic Morbid Obesity [E66.01] 01/23/2010 Lumbar Disc Disorder [M51.9] 02/16/2010 Routine general medical examination at [facility]*12/06/2012 02/22/2014 Anxiety [F41.9] 06/07/2014 Type 2 diabetes mellitus with microalbuminuria,*0 07/04/2018 Fatty liver [K76.0] 07/21/2018 LETITIA (obstructive sleep apnea) [G47 (more content not included)... Normal [facility] Absolute lymphocyte counton 06-05-2022 Lymphocytes Auto (Unsp spec) [#/Vol] 2.26 10*3/uL 0.83-4.51 [facility] Work Phone: Absolute reticulocyte counto n 06-05-2022 Reticulocytes (Bld) [#/Vol] 0.00 10*3/uL 0-5 [facility] Work Phone: Basophil percentageon 2021 Basophil percentage 3.4 mg/dL 2.5-4.9 [facility] Work Phone: Bilirubin [Mass/Vol] 0.60 mg/dL 0.20-1.00 [facility] Work Phone: Comment on above: For patients on eltr ombopag therapy, use of Dimension [place] TBIL is not recommended. Chloride [Moles/Vol] 108 mmol/L 98-107 [facility] Work Phone: Cholesterol [Mass/Vol] 180 mg/dL <200 [facility] Work Phone: Comment on above: <200 mg/dL Desirable 200-240 mg/dL Borderline >240 mg/dL High Risk Glucose [Mass/Vol] 100 mg/dL 74-106 [facility] Work Phone: Comment on above: Fasting Glucose resu lt from 100 to 125 mg/dL suggests IMPAIRED HOMEOSTASIS per A.D.A. criteria. Neutrophils (Bld) [#/Vol] 5.5 10*3/uL 2.0-7.7 [facility] Work Phone: Potassium [Moles/Vol] 3.6 mmol/L 3.5-5.1 [facility] Work Phone: Protein [Mass/Vol] 8.2 g/dL 6.4-8.2 [facility] Work Phone: Sodium [Moles/Vol] 137 mmol/L 136-145 [facility] Work Phone: Triglyceride [Mass/Vol] 418 mg/dL <[address] [facility] Work Phone: Comment on above: The drugs N-Acetylcy steine and Metamizole may falsely depress this assay. TRIGLYCERIDE IS GREATER THAN 400 mg/dL. LDL RESULT IS INVALID AND WILL NOT BE REPORTED.Serum Triglycerides Reference Interval Normal <150 mg/dL Borderline high 150 - 199 mg/dL High 200 - 499 mg/dL Very High > or = 500 mg/dL WBC (Bld) [#/Vol] 8.6 10*3/uL 4.4-11.0 [facility] Work Phone: Bilirubin Test strip Ql (U)o n 06-05-2022 Bilirubin Ql (U) Negative Negative [facility] Work Phone: Blood erythrocytes count (nu mber/volume)on 06-05-2022 RBC (Bld) [#/Vol] 4.49 10*6/uL 4.2-5.4 [facility] Work Phone: Blood hemoglobin measurement (mass/volume)on 06-05-2022 Hemoglobin (Bld) [Mass/Vol] 14.0 g/dL 12.0-15.0 [facility] Work Phone: Blood platelet mean volumeon 06-05-2022 Platelet mean volume (Bld) [Entitic vol] 9.2 fL 6.2-12.0 [facility] Work Phone: Determination of erythrocyte mean corpuscular volume (MCV)on 06-05-2022 MCV (RBC) [Entitic vol] 92.7 fL 81-[address] [facility] Work Phone: Direct bilirubinon Bilirubin.direct [Mass/Vol] 0.11 mg/dL 0.00-0.30 [facility] Work Phone: Hematocrit Auto (Bld) [Volum e fraction]on 06-05-2022 Hematocrit (Bld) [Volume fraction] 41.6 % 37-47 [facility] Work Phone: Ketones Test strip Ql (U)on 06-05-2022 Ketones Ql (U) Negative Negative [facility] Work Phone: Laboratory - Chemistry and C hemistry - challengeon 06-05-2022 ALP [Catalytic activity/Vol] 73 U/L 45-117 [facility] Work Phone: ALT [Catalytic activity/Vol] 24 U/L 13-56 [facility] Work Phone: Cholesterol.total/Choles terol in HDL [Mass ratio] 5.50 {ratio} [facility] Work Phone: CO2 [Moles/Vol] 25.0 mmol/L 21.0-32.0 [facility] Work Phone: Globulin (S) [Mass/Vol] 4.1 g/dL 2.2-4.[address] [facility] Work Phone: Urea nitrogen/Creatinine [Mass ratio] 16.6 mg/mg 10-20 [facility] Work Phone: Laboratory - Hematology and Cell countson 06-05-2022 Erythrocyte distribution width (RBC) [Entitic vol] 44.2 fL 35.1-43.9 [facility] Work Phone: Erythrocyte distribution width (RBC) [Ratio] 13.2 % 11.6-14.6 [facility] Work Phone: MCH (RBC) [Entitic mass] 31.2 pg 27.0-32.0 [facility] Work Phone: Nucleated RBC/100 WBC (Bld) [Ratio] 0 % 0-5 [facility] Work Phone: MCHC Auto (RBC) [Mass/Vol]on 06-05-2022 MCHC (RBC) [Mass/Vol] 33.7 g/dL 32-36 [facility] Work Phone: Nitrite Test strip Ql (U)on 06-05-2022 Nitrite Ql (U) Negative Negative [facility] Work Phone: No Panel Informationon 06-05 Estimated GFR (MDRD) Amer 115 mL/min >60 [facility] Work Phone: Comment on above: GFR Calc Estimated GFR (MDRD) Non-Af Amer 95 mL/min >60 [facility] Work Phone: Comment on above: Non- GFR Calc Platelets bldon 06-05-2022 Platelets (Bld) [#/Vol] 200 10*3/uL 150-450 [facility] Work Phone: Protein Test strip Ql (U)on 06-05-2022 Protein Ql (U) 15 mg/dl Negative [facility] Work Phone: Segmented neutrophils/100 WB C Auto (Bld)on 06-05-2022 Segmented neutrophils/100 WBC (Bld) 64.3 % 47-70 [facility] Work Phone: Serum or plasma albumin sharron urement (mass/volume)on 06-05-2022 Albumin [Mass/Vol] 4.1 g/dL 3.2-5.0 [facility] Work Phone: Serum or plasma albumin/glob ulin mass ratioon 06-05-2022 Albumin/Globulin [Mass ratio] 1.0 {ratio} 0.9-2.4 [facility] Work Phone: Serum or plasma calcium sharron urement (mass/volume)on 06-05-2022 Calcium [Mass/Vol] 8.7 mg/dL 8.5-10.1 [facility] Work Phone: Serum or plasma cholesterol in HDL measurement (mass/volume)on 06-05-2022 Cholesterol in HDL [Mass/Vol] 33 mg/dL >40 [facility] Work Phone: Comment on above: The drugs N-Acetylcy steine and Metamizole may falsely depress this assay. Reference Range HDL <40 mg/dL Low HDL Cholesterol HDL >or= 60 mg/dL High HDL Cholesterol Serum or plasma cholesterol in VLDL measurement (mass/volume)on 06-05-2022 Cholesterol in VLDL [Mass/Vol] TNP [facility] Work Phone: Comment on above: Test not performed Serum or plasma creatinine m easurement (mass/volume)on 06-05-2022 Creatinine [Mass/Vol] 0.72 mg/dL 0.55-1.02 [facility] Work Phone: Comment on above: The validity of the calculated GFR & GFRAA in patients over 70 years has not been determined. Clinical correlation is essential. Serum or plasma low density lipoprotein (LDL) cholesterol measurement (mass/volume)on 06-05-2022 Cholesterol in LDL [Mass/Vol] TNP [facility] Work Phone: Comment on above: Test not performed Serum or plasma urea nitroge n measurement (mass/volume)on 06-05-2022 Urea nitrogen [Mass/Vol] 12 mg/dL 7-18 [facility] Work Phone: Serum or plasma uric acid me asurement (mass/volume)on 06-05-2022 Urate [Mass/Vol] 5.6 mg/dL 2.6-6.0 [facility] Work Phone: Comment on above: The drugs N-Acetylcy steine and Metamizole may falsely depress this assay. Thin prep Papanicolaou smear with manual screeningon 06-05-2022 Thin prep Papanicolaou smear with manual screening 14 U/L 15-37 [facility] Work Phone: Thin prep Papanicolaou smear with manual screening 4 5-15 [facility] Work Phone: Thin prep Papanicolaou smear with manual screening 152 U/L 84-246 [facility] Work Phone: Urine blood detectionon 08-0 RBC Ql (U) Negative Negative [facility] Work Phone: Urine clarityon 06-05-2022 Clarity (U) Sl. Cloudy Clear [facility] Work Phone: Urine color determinationon 06-05-2022 Color (U) Yellow Yellow [facility] Work Phone: Urine glucose detectionon Glucose Ql (U) Normal mg/dl Normal [facility] Work Phone: Urine leukocyte esterase det ection by dipstickon 06-05-2022 Leukocyte esterase Test strip Ql (U) 500 /ul Negative [facility] Work Phone: Urine pHon 06-05-2022 pH (U) 5.0 [pH] 5.0 - 8.0 [facility] Work Phone: Urine specific gravity measu rementon 06-05-2022 Specific gravity (U) [Rel density] 1.020 1.002-1.030 [facility] Work Phone: Urobilinogen Auto test strip Ql (U)on 06-05-2022 Urobilinogen Ql (U) Normal mg/dl Normal [facility] Work Phone: CNOVon 05-24-2022 CNOV Office Visit (SPAGWO) ---- TORI GRAY ([id number]) 1980 F Date Time Provider Department 05/24/22 11:00 AM ADELINA MASON During your visit today, [...] The patient is not nervous/anxious. 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 Normal [facility] TORI GRAY ([id number]) 1980 F Date Time Provider Department 05/11/22 ELLE [facility] During your visit today, we [...] DIPROPION* 2 4 - Hives Date Reviewed: 05/10/2022 Reviewed [...] bed with current PAP mask. - Ipratropium [place] (ATROVENT) 0.03 % nasal spray Use 2 Sprays in the nose every 12 hours. - metroNIDAZOLE (METROGEL) 0.75 % Topical Gel Apply to affected area twice daily. - [place]-3 Fatty Acids (FISH OIL) 500 mg cap Take 1 capsule by mouth once daily. - blood sugar diagnostic (BLOOD GLUCOSE TEST) test strip Test blood sugar(s) 1 times daily. Dx: Type 2 DM - Controlled E11.9 Insulin: Yes - Lancets lancets Test blood sugar(s) 1 times daily. Dx: Type 2 DM - Controlled E11.9 Insulin: No - Rjrmhkgh-Hs-Spi-Fe- FA ( FORMULA) ORAL Tab Take 1 [...] 05/06/2009 01/23/2010 Routine general medical examination at [facility]*01/23/2010 12/06/2012 Class: Chronic Routine gynecological examination [Z01.419] 01/23/2010 02/22/2014 Class: Chronic Morbid Obesity [E66.01] 01/23/2010 Lumbar Disc Disorder [M51.9] 02/16/2010 Routine general medical examination at [facility]*12/06/2012 02/22/2014 Anxiety [F41.9] 06/07/2014 Type 2 diabetes mellitus with microalbuminuria,*0 07/04/2018 Fatty liver [K76.0] 07/21/2018 LETITIA (obstructive sleep apnea) [G47.33] 07/21/2018 Microalbuminuria [R80.9] 09/30/2018 Obesity, Class III, BMI >= 40 [E66.01] 11/26/2019 Prolonged Q-T interval on ECG [R94.31] 03/31/2020 Encounter Status:Closed by LIVIA LUNA on 05/11/22 [facility] GLUCOSE, BLOOD (POC)on 05-10 Glucose [Mass/Vol] 104 mg/dL Abnormal 74 - 99 mg/dL [facility] CNCOon 03-29-20[address] CNCO [address] [facility] CNOVon 03-29-2022 CNOV Office Visit (SPAGWO) ---- TORI GRAY ([id number]) 1980 F Date Time Provider Department 03/29/22 11:00 AM ELLE SANCHEZ During your visit today, we recorded the following information about you: Pulse Respiration Normal [facility] CNPNon 03-29-2022 CNPN Telephone (SPAGWO) ---- TORI GRAY ([id number]) 1980 F Date Time Provider Department 03/29/22 ELLE SANCHEZ During your visit today, we recorded the following information about you: Teresezackary Cruz 03/29/2022 12:53 PM Signed 1.Are you [...] DIPROPION* 2 4 - Hives Date Reviewed: 03/29/2022 Reviewed [...] bed with current PAP mask. - Ipratropium [place] (ATROVENT) 0.03 % nasal spray Use 2 Sprays in the nose every 12 hours. - metroNIDAZOLE (METROGEL) 0.75 % Topical Gel Apply to affected area twice daily. - [place]-3 Fatty Acids (FISH OIL) 500 mg cap Take 1 capsule by mouth once daily. - blood sugar diagnostic (BLOOD GLUCOSE TEST) test strip Test blood sugar(s) 1 times daily. Dx: Type 2 DM - Controlled E11.9 Insulin: Yes - Lancets lancets Test blood sugar(s) 1 times daily. Dx: Type 2 DM - Controlled E11.9 Insulin: No - Zlmmpinz-Jz-Nxs-Fe- FA ( FORMULA) ORAL Tab Take 1 [...] 05/06/2009 01/23/2010 Routine general medical examination at [facility]*01/23/2010 12/06/2012 Class: Chronic Routine gynecological examination [Z01.419] 01/23/2010 02/22/2014 Class: Chronic Morbid Obesity [E66.01] 01/23/2010 Lumbar Disc Disorder [M51.9] 02/16/2010 Routine general medical examination at [facility]*12/06/2012 02/22/2014 Anxiety [F41.9] 06/07/2014 Type 2 diabetes mellitus with microalbuminuria,*0 07/04/2018 Fatty liver [K76.0] 07/21/2018 LETITIA (obstructive sleep apnea) [G47.33] 07/21/2018 Microalbuminuria [R80.9] 09/30/2018 Obesity, Class III, BMI >= 40 [E66.01] 11/26/2019 Prolo (more content not included)... Normal [facility] Basophil percentageon 2021 Cholesterol [Mass/Vol] 178 mg/dL <200 [facility] Comment on above: <200 mg/dL Desirable 200-240 mg/dL Borderline >240 mg/dL High Risk Triglyceride [Mass/Vol] 183 mg/dL [facility] Comment on above: The drugs N-Acetylcy steine and Metamizole may falsely depress this assay.Serum Triglycerides Reference Interval Normal <150 mg/dL Borderline high 150 - 199 mg/dL High 200 - 499 mg/dL Very High > or = 500 mg/dL Bilirubin [Mass/Vol] 0.30 mg/dL 0.20-1.00 [facility] Work Phone: Comment on above: For patients on eltr ombopag therapy, use of Dimension [place] TBIL is not recommended. Chloride [Moles/Vol] 109 mmol/L 98-107 [facility] Work Phone: Glucose [Mass/Vol] 126 mg/dL 74-106 [facility] Work Phone: Comment on above: Fasting Glucose resu lt greater than or equal to 126 mg/dL suggests DIABETES MELLITUS per A.D.A. criteria. Potassium [Moles/Vol] 4.1 mmol/L 3.5-5.1 [facility] Work Phone: Protein [Mass/Vol] 8.4 g/dL 6.4-8.2 [facility] Work Phone: Sodium [Moles/Vol] 136 mmol/L 136-145 [facility] Work Phone: WBC (Bld) [#/Vol] 9.6 10*3/uL 4.4-11.0 [facility] Work Phone: Blood erythrocytes count (nu mber/volume)on 02-07-2022 RBC (Bld) [#/Vol] 4.63 10*6/uL 4.2-5.4 [facility] Work Phone: Blood hemoglobin measurement (mass/volume)on 02-07-2022 Hemoglobin (Bld) [Mass/Vol] 14.2 g/dL 12.0-15.0 [facility] Work Phone: Blood platelet mean volumeon 02-07-2022 Platelet mean volume (Bld) [Entitic vol] 9.5 fL 6.2-12.0 [facility] Work Phone: Determination of erythrocyte mean corpuscular volume (MCV)on 02-07-2022 MCV (RBC) [Entitic vol] 91.6 fL 81-[address] [facility] Work Phone: Hematocrit Auto (Bld) [Volum e fraction]on 02-07-2022 Hematocrit (Bld) [Volume fraction] 42.4 % 37-47 [facility] Work Phone: LIPID PANEL (OUTSIDE)on VLDL Cholesterol 37 [facility] - Chemistry and C hemistry - challengeon 02-07-2022 ALP [Catalytic activity/Vol] 87 U/L 45-117 [facility] Work Phone: ALT [Catalytic activity/Vol] 29 U/L 13-56 [facility] Work Phone: CO2 [Moles/Vol] 23.0 mmol/L 21.0-32.0 [facility] Work Phone: Globulin (S) [Mass/Vol] 4.3 g/dL 2.2-4.[address] [facility] Work Phone: Magnesium [Mass/Vol] 1.7 mg/dL 1.6-2.6 [facility] Work Phone: Urea nitrogen/Creatinine [Mass ratio] 15.1 mg/mg 10-20 [facility] Work Phone: Laboratory - Hematology and Cell countson 02-07-2022 Erythrocyte distribution width (RBC) [Entitic vol] 43.8 fL 35.1-43.9 [facility] Work Phone: Erythrocyte distribution width (RBC) [Ratio] 13.2 % 11.6-14.6 [facility] Work Phone: MCH (RBC) [Entitic mass] 30.7 pg 27.0-32.0 [facility] Work Phone: MCHC Auto (RBC) [Mass/Vol]on 02-07-2022 MCHC (RBC) [Mass/Vol] 33.5 g/dL 32-36 [facility] Work Phone: MICROALBUMIN/CREATININE UR W RATIO (EXTERNAL)on 02-07-2022 Albumin/Creat Ratio 153.4 [facility] Creatinine Urine [address] [facility] Microalbumin, Random urine 290 [facility] No Panel Informationon 02-07 Urine Microalbumin/Creatinine Ratio 153.4 mg/g CRE <30 [facility] Work Phone: Estimated GFR (MDRD) Amer 114 mL/min >60 [facility] Work Phone: Comment on above: GFR Calc Estimated GFR (MDRD) Non-Af Amer 94 mL/min >60 [facility] Work Phone: Comment on above: Non- GFR Calc Thyroid Stimulating Hormone (TSH) 2.76 uIU/mL 0.358-3.74 [facility] Work Phone: Platelets bldon 02-07-2022 Platelets (Bld) [#/Vol] 223 10*3/uL 150-450 [facility] Work Phone: Serum or plasma albumin sharron urement (mass/volume)on 02-07-2022 Albumin [Mass/Vol] 4.1 g/dL 3.2-5.0 [facility] Work Phone: Serum or plasma albumin/glob ulin mass ratioon 02-07-2022 Albumin/Globulin [Mass ratio] 1.0 {ratio} 0.9-2.4 [facility] Work Phone: Serum or plasma calcium sharron urement (mass/volume)on 02-07-2022 Calcium [Mass/Vol] 8.8 mg/dL 8.5-10.1 [facility] Work Phone: Serum or plasma cholesterol in HDL measurement (mass/volume)on 02-07-2022 Cholesterol in HDL [Mass/Vol] 37 mg/dL [facility] Comment on above: The drugs N-Acetylcy steine and Metamizole may falsely depress this assay. Reference Range HDL <40 mg/dL Low HDL Cholesterol HDL >or= 60 mg/dL High HDL Cholesterol Serum or plasma cholesterol in VLDL measurement (mass/volume)on 02-07-2022 Cholesterol in VLDL [Mass/Vol] 37 mg/dL 5-40 [facility] Work Phone: Serum or plasma creatinine m easurement (mass/volume)on 02-07-2022 Creatinine [Mass/Vol] 0.73 mg/dL 0.55-1.02 [facility] Work Phone: Comment on above: The validity of the calculated GFR & GFRAA in patients over 70 years has not been determined. Clinical correlation is essential. Serum or plasma low density lipoprotein (LDL) cholesterol measurement (mass/volume)on 02-07-2022 Cholesterol in LDL [Mass/Vol] 104 mg/dL 0-130 [facility] Serum or plasma urea nitroge n measurement (mass/volume)on 02-07-2022 Urea nitrogen [Mass/Vol] 11 mg/dL 7-18 [facility] Work Phone: TSH (EXTERNAL)on 02-07-2022 TSH 2.76 IU/ml 0.2 - 5.6 IU/ml [facility] Thin prep Papanicolaou smear with manual screeningon 02-07-2022 Thin prep Papanicolaou smear with manual screening 290.0 mg/L NO RANGE EST. [facility] Work Phone: Thin prep Papanicolaou smear with manual screening 13 U/L 15-37 [facility] Work Phone: Thin prep Papanicolaou smear with manual screening 4 5-15 [facility] Work Phone: Urine creatinine measurement (mass/volume)on 02-07-2022 Creatinine (U) [Mass/Vol] 189.00 mg/dL NO RANGE EST. [facility] Work Phone: Whole blood hemoglobin A1c/t otal hemoglobin ratio (mass fraction)on 02-07-2022 HbA1c (Bld) [Mass fraction] 5.1 % 3.8-5.6 [facility] Comment on above: Normal < 5.7 % Predi abetic 5.7 - 6.4 % Diabetic >or= 6.5 % Please note range changes. Hany 01-29-2022 CNPN Telephone (AGSPINE3) ---- TORI GRAY ([id number]) 1980 F Date Time Provider Department 01/29/22 ELLE SANCHEZ [id number] During your visit today, we recorded the following information about you: Darrion Barahona 01/29/2022 3:13 PM Signed ----- Message from Gale Quinonez sent at 01/29/2022 3:10 PM EDT ----- Regarding: FW: New Referral ----- Message ----- From: Juliana Carrillo Sent: 01/29/2022 7:34 AM EDT To: Calvin Gaytan Stephanie Gidley Subject: FW: New Referral ----- Message ----- From: Nirmala Storey LPN Sent: 01/26/2022 9:15 AM EDT To: Juliana Carrillo Subject: New Referral Dr Grimes and Dr Alfonso have suggested patient see Dr Sanchez for left shoulder pain. Thank you! Darrion Barahona 01/29/2022 3:14 PM Signed I have attempted to contact this patient by phone, Left brief message on cell voicemail stating to call and schedule. Darrion Barahona Allergies As of Date: 01/29/2022 Noted Allergy [...] bed with current PAP mask. - Ipratropium [place] (ATROVENT) 0.03 % nasal spray Use 2 Sprays in the nose every 12 hours. - metroNIDAZOLE (METROGEL) 0.75 % Topical Gel Apply to affected area twice daily. - [place]-3 Fatty Acids (FISH OIL) 500 mg cap Take 1 capsule by mouth once daily. - blood sugar diagnostic (BLOOD GLUCOSE TEST) test strip Test blood sugar(s) 1 times daily. Dx: Type 2 DM - Controlled E11.9 Insulin: Yes - Lancets lancets Test blood sugar(s) 1 times daily. Dx: Type 2 DM - Controlled E11.9 Insulin: No - Fcisjqfn-Of-Jyp-Fe- FA ( FORMULA) ORAL Tab Take 1 [...] 05/06/2009 01/23/2010 Routine general medical examination at [facility]*01/23/2010 12/06/2012 Class: Chronic Routine gynecological examination [Z01.419] 01/23/2010 02/22/2014 Class: Chronic Morbid Obesity [E66.01] 01/23/2010 Lumbar Disc Disorder [M51.9] 02/16/2010 Routine general medical examination at [facility]*12/06/2012 02/22/2014 Anxiety [F41.9] 06/07/2014 Type 2 diabetes mellitus with microalbuminuria,*0 07/04/2018 Fatty liver [K76.0] 07/21/2018 LETITIA (obstructive sleep apnea) [G47.33] 07/21/2018 Microalbuminuria [R80.9] 09/30/2018 Obesity, Class III, BMI >= 40 [E66.01] 11/26/2019 Prolonged Q-T interval on ECG [R94.31] 03/31/2020 Encounter Status:Closed by BROOKLYN DARRION on 01/30/[address] [facility] - Microbiology an d Antimicrobial susceptibilityon 11-21-2021 SARS-CoV-2 (COVID-19) RNA ALLYSON+probe Ql (Unsp spec) Not detected [facility] Work Phone: Office Visit: Jojo Removal, possible other optionson 09-09-2017 Documentation of current medications (procedure) Done Invalid Interpretation Code [facility] Fall risk assessment No Invalid Interpretation Code [facility] Tobacco smoking status NHIS Never Invalid Interpretation Code [facility] Tobacco use CPHS Never smoker Invalid Interpretation Code [facility] Office Visit: Spine Visit- L ow back pain BWCon 09-05-2017 Documentation of current medications (procedure) Done Invalid Interpretation Code [facility] Work Phone: Office Visit: Spine Visit- L ow back painon 09-03-2017 Documentation of current medications (procedure) Done Invalid Interpretation Code [facility] Work Phone: Office Visit: Spine Visit- L ow back BWCon 08-22-2017 Documentation of current medications (procedure) Done Invalid Interpretation Code [facility] Work Phone: Office Visiton 08-09-2017 Dietary management education, guidance, and counseling (procedure) yes Invalid Interpretation Code [facility] Work Phone: Tobacco smoking status NHIS Never Invalid Interpretation Code [facility] Work Phone: Tobacco use CPHS Never smoker Invalid Interpretation Code [facility] Work Phone: Office Visit: BWC: low back painon 05-02-2017 Fall risk assessment No Invalid Interpretation Code [facility] Work Phone: Office Visit: Jojo Removal, possible other optionson 06-04-2014 General categories [Interpretation] of Cervical or vaginal smear or scraping by Cyto stain Normal Invalid Interpretation Code [facility] Vital Signs Date Time Vital Sign Value Performing Clinician Facility 06-07-2025 18:27-0400 Body mass index (BMI) [Ratio] 44.26 kg/m2 Ivette Grimes MD Work Phone: [facility] 06-07-2025 18:27-0400 Body weight 128.19 kg Ivette Grimes MD Work Phone: [facility] 06-07-2025 18:27-0400 Diastolic blood pressure 80 mm[Hg] Ivette Grimes MD Work Phone: [facility] 06-07-2025 18:27-0400 Heart rate 78 /min Ivette Grimes MD Work Phone: [facility] 06-07-2025 18:27-0400 SaO2% (BldA) [Mass fraction] 98 % Ivette Grimes MD Work Phone: [facility] 06-07-2025 18:27-0400 Systolic blood pressure 132 mm[Hg] Ivette Grimes MD Work Phone: [facility] 05-06-2025 10:04-0400 Body height 170.[address] Ivette Grimes MD Work Phone: [facility] 05-06-2025 10:04-0400 Body mass index (BMI) [Ratio] 43 kg/m2 Dr. Ivette Grimes MD Work Phone: [facility] 05-06-2025 10:04-0400 Body weight 124.[address] Ivette Grimes MD Work Phone: [facility] 03-22-2025 09:08-0400 Body height 170.[address] Ivette Grimes MD Work Phone: [facility] 01-22-2025 15:43-0400 Body mass index (BMI) [Ratio] 44.17 kg/m2 Ivette Grimes MD Work Phone: [facility] 01-22-2025 15:43-0400 Body weight 127.91 kg Ivette Grimes MD Work Phone: [facility] 01-22-2025 15:43-0400 Diastolic blood pressure 72 mm[Hg] Ivette Grimes MD Work Phone: [facility] 01-22-2025 15:43-0400 Heart rate 77 /min Ivette Grimes MD Work Phone: [facility] 01-22-2025 15:43-0400 SaO2% (BldA) [Mass fraction] 97 % Ivette Grimes MD Work Phone: [facility] 01-22-2025 15:43-0400 Systolic blood pressure 122 mm[Hg] Ivette Grimes MD Work Phone: [facility] 12-11-2024 11:08-0500 Body mass index (BMI) [Ratio] 43.4 kg/m2 Jenni Albaradohof LICENSE CLERK.TRANSFER PROFESSOR Work Phone: [facility] 12-11-2024 11:08-0500 Body temperature 97.81 [degF] Jenni Albaradohof LICENSE CLERK.TRANSFER PROFESSOR Work Phone: [facility] 12-11-2024 11:08-0500 Body weight 125.7 kg Jenni Albaradohof LICENSE CLERK.TRANSFER PROFESSOR Work Phone: [facility] 12-11-2024 11:08-0500 Diastolic blood pressure 74 mm[Hg] Jenni Albaradohof LICENSE CLERK.TRANSFER PROFESSOR Work Phone: [facility] 12-11-2024 11:08-0500 Heart rate 72 /min Jenni Albaradohof LICENSE CLERK.TRANSFER PROFESSOR Work Phone: [facility] 12-11-2024 11:08-0500 Respiratory rate 16 /min Jenni Tannhof LICENSE CLERK.TRANSFER PROFESSOR Work Phone: [facility] 12-11-2024 11:08-0500 SaO2% (BldA) [Mass fraction] 99 % Jennijanell Albaradohof LICENSE CLERK.TRANSFER PROFESSOR Work Phone: [facility] 12-11-2024 11:08-0500 Systolic blood pressure 138 mm[Hg] Jenni Martínez APRN.CNP Work Phone: 2(098)410-2501[address] [place] [address] 11-11-2024 12:34-0500 Heart rate 74 /min Dr. Ivette Grimes MD Work Phone: 8(257)592-790640 [place] [address] 11-11-2024 12:34-0500 Respiratory rate 20 /min Dr. Ivette Grimes MD Work Phone: 7(534)913-930540 [place] [address] 11-11-2024 12:34-0500 SaO2% (BldA) [Mass fraction] 100 % Dr. Ivette Grimes MD Work Phone: 3(613)257-515840 [place] [address] 11-11-2024 11:00-0500 Diastolic blood pressure 60 mm[Hg] Dr. Ivette Grimes MD Work Phone: 9(659)543-481540 [place] [address] 11-11-2024 11:00-0500 Systolic blood pressure 108 mm[Hg] Dr. Ivette Grimes MD Work Phone: 8(442)800-404040 [place] [address] 11-11-2024 05:55-0500 Body height 170.[address] Ivette Grimes MD Work Phone: 6(782)548-753940 [place] [address] 11-11-2024 05:55-0500 Body mass index (BMI) [Ratio] 45.2 kg/m2 Dr. Ivette Grimes MD Work Phone: 5(968)171-660840 [place] [address] 11-11-2024 05:55-0500 Body temperature 97.5 [degF] Dr. Ivette Grimes MD Work Phone: 6(262)604-789040 [place] [address] 11-11-2024 05:55-0500 Body weight [address] Ivette Grimes MD Work Phone: 5(960)299-287840 [place] [address] 10-16-2024 21:50-0500 Body temperature 98 [degF] Dr. Ivette Grimes MD Work Phone: 8(819)649-969840 [place] [address] 10-16-2024 21:50-0500 Diastolic blood pressure 72 mm[Hg] Dr. Ivette Grimes MD Work Phone: 5(174)659-579840 [place] [address] 10-16-2024 21:50-0500 Heart rate 60 /min Dr. Ivette Grimes MD Work Phone: [facility] 10-16-2024 21:50-0500 Respiratory rate 16 /min Dr. Ivette Grimes MD Work Phone: [facility] 10-16-2024 21:50-0500 SaO2% (BldA) [Mass fraction] 95 % Dr. Ivette Grimes MD Work Phone: [facility] 10-16-2024 21:50-0500 Systolic blood pressure 137 mm[Hg] Dr. Ivette Grimes MD Work Phone: [facility] 10-16-2024 20:23-0500 Body mass index (BMI) [Ratio] 43 kg/m2 Dr. Ivette Grimes MD Work Phone: [facility] 10-16-2024 20:23-0500 Body weight 124.[address] Ivette Grimes MD Work Phone: [facility] 09-03-2024 12:51-0400 Body height 170.2 cm Fatuma Robertser PA-C Work Phone: [facility] 09-03-2024 12:51-0400 Body mass index (BMI) [Ratio] 43.8 kg/m2 Fatuma Queener PA-C Work Phone: [facility] 09-03-2024 12:51-0400 Body weight 126.85 kg Fatuma Queener PA-C Work Phone: [facility] 09-03-2024 12:51-0400 Diastolic blood pressure 71 mm[Hg] Fatuma Queener PA-C Work Phone: [facility] 09-03-2024 12:51-0400 Heart rate 67 /min Fatuma Robertser PA-C Work Phone: [facility] 09-03-2024 12:51-0400 SaO2% (BldA) [Mass fraction] 97 % Fatuma Robertser PA-C Work Phone: [facility] 09-03-2024 12:51-0400 Systolic blood pressure 153 mm[Hg] Fatuma Beckford PA-C Work Phone: [facility] 08-05-2024 08:04-0400 Body mass index (BMI) [Ratio] 42.81 kg/m2 Ivette Grimes MD Work Phone: [facility] 08-05-2024 08:04-0400 Body weight 131.5 kg Ivette Grimes MD Work Phone: [facility] 08-05-2024 08:04-0400 Diastolic blood pressure 62 mm[Hg] Ivette Grimes MD Work Phone: [facility] 08-05-2024 08:04-0400 Heart rate 56 /min Ivette Grimes MD Work Phone: [facility] 08-05-2024 08:04-0400 SaO2% (BldA) [Mass fraction] 96 % Ivette Grimes MD Work Phone: [facility] 08-05-2024 08:04-0400 Systolic blood pressure 114 mm[Hg] Ivette Grimes MD Work Phone: [facility] 07-03-2024 15:29-0400 Body mass index (BMI) [Ratio] 41.94 kg/m2 Ivette Grimes MD Work Phone: [facility] 07-03-2024 15:29-0400 Body weight 128.82 kg Ivette Grimes MD Work Phone: [facility] 07-03-2024 15:29-0400 Diastolic blood pressure 82 mm[Hg] Ivette Grimes MD Work Phone: [facility] 07-03-2024 15:29-0400 Heart rate 78 /min Ivette Grimes MD Work Phone: [facility] 07-03-2024 15:29-0400 SaO2% (BldA) [Mass fraction] 98 % Ivette Grimes MD Work Phone: [facility] 07-03-2024 15:29-0400 Systolic blood pressure 152 mm[Hg] Ivette Grimes MD Work Phone: [facility] 04-02-2024 12:46-0400 Body height 175.3 cm Fatuma Beckford PA-C Work Phone: [facility] 04-02-2024 12:46-0400 Body mass index (BMI) [Ratio] 41.02 kg/m2 Fatuma Beckford PA-C Work Phone: [facility] 04-02-2024 12:46-0400 Body weight 126 kg Fatuma Beckford PA-C Work Phone: [facility] 04-02-2024 12:46-0400 Diastolic blood pressure 77 mm[Hg] Fatuma Beckford PA-C Work Phone: [facility] 04-02-2024 12:46-0400 Heart rate 59 /min Fatuma Beckford PA-C Work Phone: [facility] 04-02-2024 12:46-0400 SaO2% (BldA) [Mass fraction] 99 % Fatuma Beckford PA-C Work Phone: [facility] 04-02-2024 12:46-0400 Systolic blood pressure 135 mm[Hg] Fatuma Beckford PA-C Work Phone: [facility] 02-04-2024 04:03-0400 Body temperature 98 [degF] Dr. Ivette Grimes Work Phone: [facility] 02-04-2024 04:03-0400 Diastolic blood pressure 56 mm[Hg] Dr. Ivette Grimes Work Phone: [facility] 02-04-2024 04:03-0400 Heart rate 59 /min Dr. Ivette Grimes Work Phone: [facility] 02-04-2024 04:03-0400 Respiratory rate 16 /min Dr. Ivette Grimes Work Phone: [facility] 02-04-2024 04:03-0400 SaO2% (BldA) [Mass fraction] 100 % Dr. Ivette Grimes Work Phone: [facility] 02-04-2024 04:03-0400 Systolic blood pressure 107 mm[Hg] Dr. Ivette Grimes Work Phone: [facility] 02-04-2024 01:120400 Body height 170.[address] Ivette Grimes Work Phone: [facility] 02-04-2024 01:12-0400 Body mass index (BMI) [Ratio] 43 kg/m2 Dr. Ivette Grimes Work Phone: [facility] 02-04-2024 01:120400 Body weight 124.[address] Ivette Grimes Work Phone: [facility] 12-26-2023 10:10-0500 Body height 170.2 cm Fatuma Robertser PA-C Work Phone: [facility] 12-26-2023 10:10-0500 Body weight 123.35 kg Fatuma Robertser PA-C Work Phone: [facility] 12-26-2023 10:10-0500 Diastolic blood pressure 62 mm[Hg] Fatuma Robertser PA-C Work Phone: [facility] 12-26-2023 10:10-0500 Heart rate 68 /min Fatuma Queener PA-C Work Phone: [facility] 12-26-2023 10:10-0500 Systolic blood pressure 118 mm[Hg] Fatuma Robertser PA-C Work Phone: [facility] 12-10-2023 05:52-0500 Body height 170.[address] Ivette Grimes Work Phone: [facility] 12-10-2023 05:52-0500 Body mass index (BMI) [Ratio] 42.3 kg/m2 Dr. Ivette Grimes Work Phone: [facility] 12-10-2023 05:52-0500 Body temperature 98 [degF] Dr. Ivette Grimes Work Phone: [facility] 12-10-2023 05:52-0500 Body weight 122.[address] Ivette Girmes Work Phone: [facility] 12-10-2023 05:52-0500 Diastolic blood pressure 61 mm[Hg] Dr. Ivette Grimes Work Phone: [facility] 12-10-2023 05:52-0500 Heart rate 68 /min Dr. Ivette Grimes Work Phone: [facility] 12-10-2023 05:52-0500 Respiratory rate 16 /min Dr. Ivette Grimes Work Phone: [facility] 12-10-2023 05:52-0500 SaO2% (BldA) [Mass fraction] 98 % Dr. Ivette Grimes Work Phone: [facility] 12-10-2023 05:52-0500 Systolic blood pressure 108 mm[Hg] Dr. Ivette Grimes Work Phone: [facility] 12-09-2023 17:15-0500 Body weight 122.92 kg Ivette Grimes MD Work Phone: [facility] 12-09-2023 17:15-0500 Diastolic blood pressure 62 mm[Hg] Ivette Grimes MD Work Phone: [facility] 12-09-2023 17:15-0500 Heart rate 60 /min Ivette Grimes MD Work Phone: [facility] 12-09-2023 17:15-0500 SaO2% (BldA) [Mass fraction] 97 % Ivette Grimes MD Work Phone: [facility] 12-09-2023 17:15-0500 Systolic blood pressure 124 mm[Hg] Ivette Grimes MD Work Phone: [facility] 10-27-2023 15:06-0500 Body height 170.18 cm Self Referred [facility] 10-27-2023 15:06-0500 Body mass index (BMI) [Ratio] 43.9 kg/m2 Self Referred [facility] 10-27-2023 15:06-0500 Body temperature 97 [degF] Self Referred [facility] 10-27-2023 15:06-0500 Body weight 127.45 kg Self Referred [facility] 10-27-2023 15:06-0500 Diastolic blood pressure 90 mm[Hg] Self Referred [facility] 10-27-2023 15:06-0500 Heart rate 80 /min Self Referred [facility] 10-27-2023 15:06-0500 Respiratory rate 16 /min Self Referred [facility] 10-27-2023 15:06-0500 SaO2% (BldA) [Mass fraction] 98 % Self Referred [facility] 10-27-2023 15:06-0500 Systolic blood pressure 173 mm[Hg] Self Referred [facility] 08-07-2023 12:17-0400 Body temperature 97.5 [degF] Self Referred [facility] 08-07-2023 12:17-0400 Diastolic blood pressure 75 mm[Hg] Self Referred [facility] 08-07-2023 12:17-0400 Heart rate 53 /min Self Referred [facility] 08-07-2023 12:17-0400 Respiratory rate 14 /min Self Referred [facility] 08-07-2023 12:17-0400 SaO2% (BldA) [Mass fraction] 99 % Self Referred [facility] 08-07-2023 12:17-0400 Systolic blood pressure 119 mm[Hg] Self Referred [facility] 08-07-2023 11:00-0400 Body mass index (BMI) [Ratio] 47.2 kg/m2 Self Referred [facility] 08-05-2023 17:16-0400 Body height 170.18 cm Self Referred [facility] 08-05-2023 17:16-0400 Body weight 136.8 kg Self Referred [facility] 08-05-2023 13:00-0400 Body temperature 97.4 [degF] Dr. Ivette Grimes Work Phone: [facility] 08-05-2023 13:00-0400 Diastolic blood pressure 76 mm[Hg] Dr. Ivette Grimes Work Phone: [facility] 08-05-2023 13:00-0400 Heart rate 58 /min Dr. Ivette Grimes Work Phone: [facility] 08-05-2023 13:00-0400 Respiratory rate 14 /min Dr. Ivette Grimes Work Phone: [facility] 08-05-2023 13:00-0400 SaO2% (BldA) [Mass fraction] 96 % Dr. Ivette Grimes Work Phone: [facility] 08-05-2023 13:00-0400 Systolic blood pressure 156 mm[Hg] Dr. Ivette Grimes Work Phone: [facility] 08-05-2023 11:33-0400 Body mass index (BMI) [Ratio] 47.2 kg/m2 Dr. Ivette Grimes Work Phone: [facility] 08-05-2023 09:51-0400 Body weight 136.[address] Ievtte Grimes Work Phone: [facility] 08-05-2023 09:40-0400 Body height 170.[address] Ivette Grimes Work Phone: [facility] 06-07-2023 15:01-0400 Diastolic blood pressure 76 mm[Hg] Ivette Mejia Jr., MD Work Phone: [facility] 06-07-2023 15:01-0400 Heart rate 75 /min Ivette Mejia Jr., MD Work Phone: [facility] 06-07-2023 15:01-0400 Respiratory rate 16 /min Ivette Mejia Jr., MD Work Phone: [facility] 06-07-2023 15:01-0400 SaO2% (BldA) [Mass fraction] 97 % Ivette Mejia Jr., MD Work Phone: [facility] 06-07-2023 15:01-0400 Systolic blood pressure 138 mm[Hg] Ivette Mejia Jr., MD Work Phone: [facility] 06-06-2023 09:39-0400 Body weight 132 kg Ivette Grimes MD Work Phone: [facility] 06-06-2023 09:39-0400 Diastolic blood pressure 81 mm[Hg] Ivette Grimes MD Work Phone: [facility] 06-06-2023 09:39-0400 Heart rate 51 /min Ivette Grimes MD Work Phone: [facility] 06-06-2023 09:39-0400 SaO2% (BldA) [Mass fraction] 98 % Ivette Grimes MD Work Phone: [facility] 06-06-2023 09:39-0400 Systolic blood pressure 129 mm[Hg] Ivette Grimes MD Work Phone: [facility] 05-20-2023 22:47-0400 Diastolic blood pressure 88 mm[Hg] Dr. Ivette Grimes Work Phone: [facility] 05-20-2023 22:47-0400 Heart rate 78 /min Dr. Ivette Grimes Work Phone: [facility] 05-20-2023 22:47-0400 Respiratory rate 18 /min Dr. Ivette Grimes Work Phone: [facility] 05-20-2023 22:47-0400 SaO2% (BldA) [Mass fraction] 100 % Dr. Ivette Grimes Work Phone: [facility] 05-20-2023 22:47-0400 Systolic blood pressure 134 mm[Hg] Dr. Ivette Grimes Work Phone: [facility] 05-20-2023 21:28-0400 Body height 170.[address] Ivette Grimes Work Phone: [facility] 05-20-2023 21:28-0400 Body mass index (BMI) [Ratio] 45.4 kg/m2 Dr. Ivette Grimes Work Phone: [facility] 05-20-2023 21:28-0400 Body temperature 97.5 [degF] Dr. Ivette Grimes Work Phone: [facility] 05-20-2023 21:28-0400 Body weight 131.[address] Ivette Grimes Work Phone: 0(915)929-931147 [place] [address] 05-17-2023 10:04-0400 Body height 170.2 cm Fatuma Robertser PA-C Work Phone: [facility] 05-17-2023 10:04-0400 Body weight 132 kg Fatuma Robertser PA-C Work Phone: [facility] 05-17-2023 10:04-0400 Diastolic blood pressure 70 mm[Hg] Fatuma Robertser PA-C Work Phone: [facility] 05-17-2023 10:04-0400 Heart rate 68 /min Fatuma Robertser PA-C Work Phone: [facility] 05-17-2023 10:04-0400 SaO2% (BldA) [Mass fraction] 97 % Fatuma Robertser PA-C Work Phone: [facility] 05-17-2023 10:04-0400 Systolic blood pressure 123 mm[Hg] Fatuma Robertser PA-C Work Phone: [facility] 03-05-2023 12:35-0400 Body temperature 97.81 [degF] Fatuma Robertser PA-C Work Phone: [facility] 03-05-2023 12:35-0400 Body weight 130.09 kg Fatuma Robertser PA-C Work Phone: [facility] 03-05-2023 12:35-0400 Diastolic blood pressure 76 mm[Hg] Fatuma Robertser PA-C Work Phone: [facility] 03-05-2023 12:35-0400 Heart rate 61 /min Fatuma Robertser PA-C Work Phone: [facility] 03-05-2023 12:35-0400 Respiratory rate 16 /min Fatuma Robertser PA-C Work Phone: [facility] 03-05-2023 12:35-0400 SaO2% (BldA) [Mass fraction] 98 % Fatuma Queener PA-C Work Phone: [facility] 03-05-2023 12:35-0400 Systolic blood pressure 145 mm[Hg] Fatuma Beckford PA-C Work Phone: [facility] 03-05-2023 08:56-0400 Body height 170.2 cm Galina Camacho MD Work Phone: [facility] 03-05-2023 08:56-0400 Body weight 130.18 kg Galina Camacho MD Work Phone: [facility] 03-05-2023 08:56-0400 Diastolic blood pressure 82 mm[Hg] Galina Camacho MD Work Phone: [facility] 03-05-2023 08:56-0400 Systolic blood pressure 122 mm[Hg] Galina Camacho MD Work Phone: [facility] 02-28-2023 14:20-0400 Body weight 131.54 kg Ivette Grimes MD Work Phone: [facility] 02-28-2023 14:20-0400 Diastolic blood pressure 72 mm[Hg] Ivette Grimes MD Work Phone: [facility] 02-28-2023 14:20-0400 Heart rate 79 /min Ivette Grimes MD Work Phone: [facility] 02-28-2023 14:20-0400 SaO2% (BldA) [Mass fraction] 97 % Ivette Grimes MD Work Phone: [facility] 02-28-2023 14:20-0400 Systolic blood pressure 138 mm[Hg] Ivette Grimes MD Work Phone: [facility] 01-31-2023 09:21-0400 Body weight 130.18 kg Ivette Grimes MD Work Phone: [facility] 01-31-2023 09:21-0400 Diastolic blood pressure 82 mm[Hg] Ivette Grimes MD Work Phone: [facility] 01-31-2023 09:21-0400 Heart rate 65 /min Ivette Grimes MD Work Phone: [facility] 01-31-2023 09:21-0400 SaO2% (BldA) [Mass fraction] 98 % Ivette Grimes MD Work Phone: [facility] 01-31-2023 09:21-0400 Systolic blood pressure 120 mm[Hg] Ivette Grimes MD Work Phone: [facility] 01-24-2023 10:23-0400 Heart rate 64 /min Elle Sanchez MD Work Phone: [facility] 01-24-2023 10:23-0400 Respiratory rate 16 /min Elle Sanchez MD Work Phone: [facility] 01-24-2023 10:23-0400 SaO2% (BldA) [Mass fraction] 98 % Elle Sanchez MD Work Phone: [facility] 01-17-2023 11:21-0400 Body height 170.2 cm Ivette Grimes MD Work Phone: [facility] 01-17-2023 11:21-0400 Body weight 128.82 kg Ivette Grimes MD Work Phone: [facility] 01-17-2023 11:21-0400 Diastolic blood pressure 84 mm[Hg] Ivette Grimes MD Work Phone: [facility] 01-17-2023 11:21-0400 Heart rate 70 /min Ivette Grimes MD Work Phone: [facility] 01-17-2023 11:21-0400 SaO2% (BldA) [Mass fraction] 98 % Ivette Grimes MD Work Phone: [facility] 01-17-2023 11:21-0400 Systolic blood pressure 148 mm[Hg] Ivette Grimes MD Work Phone: [facility] 01-04-2023 11:30-0500 Body weight 128.37 kg Ivette Grimes MD Work Phone: [facility] 01-04-2023 11:30-0500 Diastolic blood pressure 78 mm[Hg] Ivette Grimes MD Work Phone: [facility] 01-04-2023 11:30-0500 Heart rate 85 /min Ivette Grimes MD Work Phone: [facility] 01-04-2023 11:30-0500 SaO2% (BldA) [Mass fraction] 97 % Ivette Grimes MD Work Phone: [facility] 01-04-2023 11:30-0500 Systolic blood pressure 132 mm[Hg] Ivette Grimes MD Work Phone: [facility] 12-28-2022 14:55-0500 Body height 170.[address] Ivette Grimes Work Phone: [facility] 12-28-2022 14:55-0500 Body mass index (BMI) [Ratio] 44.6 kg/m2 Dr. Ivette Grimes Work Phone: [facility] 12-28-2022 14:55-0500 Body weight 129.[address] Ivette Grimes Work Phone: [facility] 12-28-2022 14:55-0500 Diastolic blood pressure 79 mm[Hg] Dr. Ivette Grimes Work Phone: [facility] 12-28-2022 14:55-0500 Heart rate 71 /min Dr. Ivette Grimes Work Phone: [facility] 12-28-2022 14:55-0500 Respiratory rate 20 /min Dr. Ivette Grimes Work Phone: [facility] 12-28-2022 14:55-0500 Systolic blood pressure 130 mm[Hg] Dr. Ivette Grimes Work Phone: [facility] 12-26-2022 11:10-0500 Body height 170.2 cm Ivette Grimes MD Work Phone: [facility] 12-26-2022 11:10-0500 Body weight 128.37 kg Ivette Grimes MD Work Phone: [facility] 12-26-2022 11:10-0500 Diastolic blood pressure 74 mm[Hg] Ivette Grimes MD Work Phone: [facility] 12-26-2022 11:10-0500 Heart rate 83 /min Ivette Grimes MD Work Phone: [facility] 12-26-2022 11:10-0500 SaO2% (BldA) [Mass fraction] 97 % Ivette Grimes MD Work Phone: [facility] 12-26-2022 11:10-0500 Systolic blood pressure 140 mm[Hg] Ivette Grimes MD Work Phone: [facility] 12-14-2022 09:16-0500 Body height 170.2 cm Ivette Grimes MD Work Phone: [facility] 12-14-2022 09:16-0500 Body weight 125.65 kg Ivette Grimes MD Work Phone: [facility] 12-14-2022 09:16-0500 Diastolic blood pressure 98 mm[Hg] Ivette Grimes MD Work Phone: [facility] 12-14-2022 09:16-0500 Heart rate 75 /min Ivette Grimes MD Work Phone: [facility] 12-14-2022 09:16-0500 SaO2% (BldA) [Mass fraction] 98 % Ivette Grimes MD Work Phone: [facility] 12-14-2022 09:16-0500 Systolic blood pressure 160 mm[Hg] Ivette Grimes MD Work Phone: [facility] 12-07-2022 16:34-0500 Body temperature 98.8 [degF] Ivette Mejia Jr., MD Work Phone: [facility] 12-07-2022 16:34-0500 Body weight 126.01 kg Ivette Mejia Jr., MD Work Phone: [facility] 12-07-2022 16:34-0500 Diastolic blood pressure 94 mm[Hg] Ivette Mejia Jr., MD Work Phone: [facility] 12-07-2022 16:34-0500 Heart rate 72 /min Ivette Mejia Jr., MD Work Phone: [facility] 12-07-2022 16:34-0500 Respiratory rate 20 /min Ivette Mejia Jr., MD Work Phone: [facility] 12-07-2022 16:34-0500 SaO2% (BldA) [Mass fraction] 97 % Ivette Mejia Jr., MD Work Phone: [facility] 12-07-2022 16:34-0500 Systolic blood pressure 160 mm[Hg] Ivette Mejia Jr., MD Work Phone: [facility] 12-06-2022 08:07-0500 Body mass index (BMI) [Ratio] 43.4 kg/m2 Dr. Ivette Grimes Work Phone: [facility] 12-06-2022 08:07-0500 Body temperature 97.7 [degF] Dr. Ivette Grimes Work Phone: [facility] 12-06-2022 08:07-0500 Body weight 125.[address] Ivette Grimes Work Phone: [facility] 12-06-2022 08:07-0500 Diastolic blood pressure 79 mm[Hg] Dr. Ivette Grimes Work Phone: [facility] 12-06-2022 08:07-0500 Heart rate 70 /min Dr. Ivette Grimes Work Phone: [facility] 12-06-2022 08:07-0500 Respiratory rate 18 /min Dr. Ivette Grimes Work Phone: [facility] 12-06-2022 08:07-0500 SaO2% (BldA) [Mass fraction] 98 % Dr. Ivette Grimes Work Phone: [facility] 12-06-2022 08:07-0500 Systolic blood pressure 141 mm[Hg] Dr. Ivette Grimes Work Phone: [facility] 12-03-2022 20:26-0500 Heart rate 75 /min Dr. Ivette Grimes Work Phone: [facility] 12-03-2022 20:26-0500 Respiratory rate 18 /min Dr. Ivette Grimes Work Phone: 3(261)847-094940 [place] [address] 12-03-2022 20:26-0500 SaO2% (BldA) [Mass fraction] 96 % Dr. Ivette Grimes Work Phone: 5(966)689-285140 [place] [address] 12-03-2022 18:25-0500 Body mass index (BMI) [Ratio] 43.4 kg/m2 Dr. Ivette Grimes Work Phone: 8(611)843-698740 [place] [address] 12-03-2022 18:25-0500 Body temperature 97.8 [degF] Dr. Ivette Grimes Work Phone: 4(923)264-897840 [place] [address] 12-03-2022 18:25-0500 Body weight 125.[address] Ivette Grimes Work Phone: 2(215)761-508840 [place] [address] 12-03-2022 18:25-0500 Diastolic blood pressure 91 mm[Hg] Dr. Ivette Grimes Work Phone: 9(857)740-295940 [place] [address] 12-03-2022 18:25-0500 Systolic blood pressure 176 mm[Hg] Dr. Ivette Grimes Work Phone: 3(487)350-438540 [place] [address] 11-27-2022 14:36-0500 Body height 170.[address] Ivette Grimes Work Phone: 4(201)784-211740 [place] [address] 11-27-2022 14:36-0500 Body mass index (BMI) [Ratio] 42.7 kg/m2 Dr. Ivette Grimes Work Phone: 9(324)882-867940 [place] [address] 11-27-2022 14:36-0500 Body temperature 98.1 [degF] Dr. Ivette Grimes Work Phone: 4(962)156-697840 [place] [address] 11-27-2022 14:36-0500 Body weight 123.[address] Ivette Grimes Work Phone: 3(651)756-990540 [place] [address] 11-27-2022 14:36-0500 Diastolic blood pressure 81 mm[Hg] Dr. Ivette Grimes Work Phone: 5(017)332-986740 [place] [address] 11-27-2022 14:36-0500 Heart rate 70 /min Dr. Ivette Grimes Work Phone: 5(131)505-416340 [place] [address] 11-27-2022 14:36-0500 Respiratory rate 15 /min Dr. Ivette Grimes Work Phone: [facility] 11-27-2022 14:36-0500 SaO2% (BldA) [Mass fraction] 99 % Dr. Ivette Grimes Work Phone: [facility] 11-27-2022 14:36-0500 Systolic blood pressure 154 mm[Hg] Dr. Ivette Grimes Work Phone: [facility] 11-27-2022 13:51-0500 Body height 170.2 cm Ivette Grimes MD Work Phone: [facility] 11-27-2022 13:51-0500 Body weight 123.83 kg Ivette Grimes MD Work Phone: [facility] 11-27-2022 13:51-0500 Diastolic blood pressure 84 mm[Hg] Ivette Grimes MD Work Phone: [facility] 11-27-2022 13:51-0500 Heart rate 75 /min Ivette Grimes MD Work Phone: [facility] 11-27-2022 13:51-0500 SaO2% (BldA) [Mass fraction] 97 % Ivette Grimes MD Work Phone: [facility] 11-27-2022 13:51-0500 Systolic blood pressure 150 mm[Hg] Ivette Grimes MD Work Phone: [facility] 11-24-2022 15:07-0500 Heart rate 67 /min Dr. Ivette Grimes Work Phone: [facility] 11-24-2022 15:07-0500 SaO2% (BldA) [Mass fraction] 97 % Dr. Ivette Grimes Work Phone: [facility] 11-24-2022 13:43-0500 Diastolic blood pressure 64 mm[Hg] Dr. Ivette Grimes Work Phone: [facility] 11-24-2022 13:43-0500 Respiratory rate 16 /min Dr. Ivette Grimes Work Phone: [facility] 11-24-2022 13:43-0500 Systolic blood pressure 132 mm[Hg] Dr. Ivette Grimes Work Phone: [facility] 11-24-2022 11:44-0500 Body height 170.[address] Ivette Grimes Work Phone: [facility] 11-24-2022 11:44-0500 Body mass index (BMI) [Ratio] 47.2 kg/m2 Dr. Ivette Grimes Work Phone: [facility] 11-24-2022 11:44-0500 Body temperature 97.9 [degF] Dr. Ivette Grimes Work Phone: [facility] 11-24-2022 11:44-0500 Body weight [address] Ivette Grimes Work Phone: [facility] 11-08-2022 13:35-0500 Heart rate 70 /min Adelina Mason LICENSE CLERK.TRANSFER PROFESSOR Work Phone: [facility] 11-08-2022 13:35-0500 Respiratory rate 14 /min Adelina Mason LICENSE CLERK.TRANSFER PROFESSOR Work Phone: [facility] 11-08-2022 13:35-0500 SaO2% (BldA) [Mass fraction] 98 % Adelina Mason LICENSE CLERK.TRANSFER PROFESSOR Work Phone: [facility] 09-04-2022 11:50-0400 Body height 170.2 cm Ivette Grimes MD Work Phone: [facility] 09-04-2022 11:50-0400 Body weight 123.11 kg Ivette Grimes MD Work Phone: [facility] 09-04-2022 11:50-0400 Diastolic blood pressure 80 mm[Hg] Ivette Grimes MD Work Phone: [facility] 09-04-2022 11:50-0400 Heart rate 74 /min Ivette Grimes MD Work Phone: [facility] 09-04-2022 11:50-0400 SaO2% (BldA) [Mass fraction] 98 % Ivette Grimes MD Work Phone: [facility] 09-04-2022 11:50-0400 Systolic blood pressure 160 mm[Hg] Ivette Grimes MD Work Phone: [facility] 08-16-2022 12:57-0400 Body height 170.[address] Ivette Grimes Work Phone: [facility] Work Phone: 08-16-2022 12:57-0400 Body mass index (BMI) [Ratio] 42.3 kg/m2 Dr. Ivette Grimes Work Phone: [facility] 08-16-2022 12:57-0400 Body weight 122.[address] Ivette Grimes Work Phone: [facility] 08-16-2022 12:57-0400 Diastolic blood pressure 78 mm[Hg] Dr. Ivette Grimes Work Phone: 6(413)741-133147 [place] [address] 08-16-2022 12:57-0400 Heart rate 73 /min Dr. Ivette Grimes Work Phone: 7(858)327-254347 [place] [address] 08-16-2022 12:57-0400 Respiratory rate 16 /min Dr. Ivette Grimes Work Phone: [facility] 08-16-2022 12:57-0400 Systolic blood pressure 117 mm[Hg] Dr. Ivette Grimes Work Phone: [facility] 08-07-2022 07:38-0400 Body height 170.[address] Ivette Grimes Work Phone: [facility] Work Phone: 08-07-2022 07:38-0400 Body mass index (BMI) [Ratio] 42.5 kg/m2 Dr. Ivette Grimes Work Phone: [facility] 08-07-2022 07:38-0400 Body temperature 99.1 [degF] Dr. Ivette Grimes Work Phone: [facility] 08-07-2022 07:38-0400 Body weight 123.[address] Ivette Grimes Work Phone: [facility] 08-07-2022 07:38-0400 Diastolic blood pressure 81 mm[Hg] Dr. Ivette Grimes Work Phone: [facility] 08-07-2022 07:38-0400 Heart rate 65 /min Dr. Ivette Grimes Work Phone: [facility] 08-07-2022 07:38-0400 Respiratory rate 16 /min Dr. Ivette Grimes Work Phone: [facility] 08-07-2022 07:38-0400 SaO2% (BldA) [Mass fraction] 97 % Dr. Ivette Grimes Work Phone: [facility] 08-07-2022 07:38-0400 Systolic blood pressure 130 mm[Hg] Dr. Ivette Grimes Work Phone: [facility] 08-02-2022 09:50-0400 Body weight 122.02 kg Ivette Grimes MD Work Phone: [facility] 08-02-2022 09:50-0400 Diastolic blood pressure 82 mm[Hg] Ivette Grimes MD Work Phone: [facility] 08-02-2022 09:50-0400 Heart rate 60 /min Ivette Grimes MD Work Phone: [facility] 08-02-2022 09:50-0400 Systolic blood pressure 126 mm[Hg] Ivette Grimes MD Work Phone: [facility] 07-19-2022 12:57-0400 Body height 170.2 cm Karen Bansal LICENSE CLERK.TRANSFER PROFESSOR Work Phone: [facility] 07-19-2022 12:57-0400 Body weight 122.92 kg Karen Bansal LICENSE CLERK.TRANSFER PROFESSOR Work Phone: [facility] 07-19-2022 12:57-0400 Diastolic blood pressure 57 mm[Hg] Karen Bansal LICENSE CLERK.TRANSFER PROFESSOR Work Phone: [facility] 07-19-2022 12:57-0400 Heart rate 76 /min Karen Ocasioerich LICENSE CLERK.TRANSFER PROFESSOR Work Phone: [facility] 07-19-2022 12:57-0400 Systolic blood pressure 115 mm[Hg] Karen Ocasioerich LICENSE CLERK.TRANSFER PROFESSOR Work Phone: [facility] 06-07-2022 15:13-0400 Body temperature 97.81 [degF] Tara Dahlhausen LICENSE CLERK.TRANSFER PROFESSOR Work Phone: [facility] 06-07-2022 15:13-0400 Body weight 119.84 kg Tara Dahlhausen LICENSE CLERK.TRANSFER PROFESSOR Work Phone: [facility] 06-07-2022 15:13-0400 Diastolic blood pressure 68 mm[Hg] Tara Dahlhausen LICENSE CLERK.TRANSFER PROFESSOR Work Phone: [facility] 06-07-2022 15:13-0400 Heart rate 80 /min Tara Dahlhausen LICENSE CLERK.TRANSFER PROFESSOR Work Phone: [facility] 06-07-2022 15:13-0400 Respiratory rate 22 /min Tara Dahlhausen LICENSE CLERK.TRANSFER PROFESSOR Work Phone: [facility] 06-07-2022 15:13-0400 SaO2% (BldA) [Mass fraction] 98 % Tara Dahlhausen LICENSE CLERK.TRANSFER PROFESSOR Work Phone: [facility] 06-07-2022 15:13-0400 Systolic blood pressure 112 mm[Hg] Tara Dahlhausen LICENSE CLERK.TRANSFER PROFESSOR Work Phone: [facility] 06-04-2022 14:39-0400 Body height 170.[address] Ivette Grimes Work Phone: [facility] Work Phone: 05-24-2022 11:01-0400 Heart rate 78 /min Adelina Mason LICENSE CLERK.TRANSFER PROFESSOR Work Phone: [facility] 05-24-2022 11:01-0400 Respiratory rate 18 /min Adelina Mason LICENSE CLERK.TRANSFER PROFESSOR Work Phone: [facility] 05-24-2022 11:01-0400 SaO2% (BldA) [Mass fraction] 98 % Adelina [place] LICENSE CLERK.TRANSFER PROFESSOR Work Phone: [facility] 05-10-2022 10:54-0400 Diastolic blood pressure 75 mm[Hg] Elle Sanchez MD Work Phone: [facility] 05-10-2022 10:54-0400 Heart rate 61 /min Elle Sanchez MD Work Phone: [facility] 05-10-2022 10:54-0400 Respiratory rate 20 /min Elle Sanchez MD Work Phone: [facility] 05-10-2022 10:54-0400 SaO2% (BldA) [Mass fraction] 98 % Elle Sanchez MD Work Phone: [facility] 05-10-2022 10:54-0400 Systolic blood pressure 130 mm[Hg] Elle Sanchez MD Work Phone: [facility] 05-01-2022 14:39-0400 Body weight 118.39 kg Ivette Grimes MD Work Phone: [facility] 05-01-2022 14:39-0400 Diastolic blood pressure 80 mm[Hg] Ivette Grimes MD Work Phone: [facility] 05-01-2022 14:39-0400 Heart rate 68 /min Ivette Grimes MD Work Phone: [facility] 05-01-2022 14:39-0400 Respiratory rate 18 /min Ivette Grimes MD Work Phone: [facility] 05-01-2022 14:39-0400 SaO2% (BldA) [Mass fraction] 98 % Ivette Grimes MD Work Phone: [facility] 05-01-2022 14:39-0400 Systolic blood pressure 132 mm[Hg] Ivette Grimes MD Work Phone: [facility] 04-09-2022 15:29-0400 Body temperature 97.5 [degF] Ivette Mejia Jr., MD Work Phone: [facility] 04-09-2022 15:29-0400 Body weight 122.2 kg Ivette Mejia Jr., MD Work Phone: [facility] 04-09-2022 15:29-0400 Diastolic blood pressure 72 mm[Hg] Ivette Mejia Jr., MD Work Phone: [facility] 04-09-2022 15:29-0400 Heart rate 74 /min Ivette Mejia Jr., MD Work Phone: [facility] 04-09-2022 15:29-0400 Respiratory rate 18 /min Ivette Mejia Jr., MD Work Phone: [facility] 04-09-2022 15:29-0400 SaO2% (BldA) [Mass fraction] 97 % Ivette Mejia Jr., MD Work Phone: [facility] 04-09-2022 15:29-0400 Systolic blood pressure 138 mm[Hg] Ivette Mejia Jr., MD Work Phone: [facility] 03-29-2022 10:58-0400 Heart rate 62 /min Elle Sanchez MD Work Phone: [facility] 03-29-2022 10:58-0400 Respiratory rate 15 /min Elle Sanchez MD Work Phone: [facility] 03-29-2022 10:58-0400 SaO2% (BldA) [Mass fraction] 98 % Elle Sanchez MD Work Phone: [facility] 02-28-2022 16:31-0400 Body weight 120.66 kg Ivette Grimes MD Work Phone: [facility] 02-28-2022 16:31-0400 Diastolic blood pressure 82 mm[Hg] Ivette Grimes MD Work Phone: [facility] 02-28-2022 16:31-0400 Heart rate 72 /min Ivette Grimes MD Work Phone: [facility] 02-28-2022 16:31-0400 Systolic blood pressure 142 mm[Hg] Ivette Grimes MD Work Phone: [facility] 11-21-2021 13:58-0500 Body height 170.[address] Ivette Grimes Work Phone: [facility] Work Phone: 09-09-2017 14:42-0500 BMI (Body Mass Index) 41.78 kg/m2 Amparo Hitchcock MD [facility] 09-09-2017 14:42-0500 Body Temperature 98.5 [degF] Amparo Hitchcock MD [facility] 09-09-2017 14:42-0500 Body Temperature 98.49 [degF] Amparo Hitchcock MD [facility] 09-09-2017 14:42-0500 BP Diastolic 78 mm[Hg] Amparo Hitchcock MD [facility] 09-09-2017 14:42-0500 BP Systolic 137 mm[Hg] Amparo Hitchcock MD [facility] 09-09-2017 14:42-0500 Height 172.72 cm Amparo Hitchcock MD [facility] 09-09-2017 14:42-0500 Pulse (Heart Rate) 67 /min Amparo Hitchcock MD [facility] 09-09-2017 14:42-0500 Respiratory Rate 16 /min Amparo Hitchcock MD [facility] 09-09-2017 14:42-0500 Weight 124.65 kg Amparo Hitchcock MD [facility] 07-22-2017 16:06-0400 BMI (Body Mass Index) 39.53 kg/m2 [facility] Work Phone: 07-22-2017 16:06-0400 Pulse (Heart Rate) 95 /min [facility] Work Phone: 07-22-2017 16:06-0400 Respiratory Rate 22 /min [facility] Work Phone: 07-22-2017 16:06-0400 Weight 117.94 kg [facility] Work Phone: 05-10-2017 14:47-0400 Body Temperature 97.7 [degF] [facility] Work Phone: 05-10-2017 14:47-0400 BP Diastolic 84 mm[Hg] [facility] Work Phone: 05-10-2017 14:47-0400 BP Systolic 132 mm[Hg] Roya Dixon [facility] Work Phone: 05-10-2017 14:47-0400 Height 172.72 cm [facility] Work Phone: Encounters Encounter Date Encounter Type Care Provider Facility Start: 06-23-2025 ambulatory [facility] Facility:[facility] Start: 06-07-2025 End: 06-07-2025 Patient encounter procedure Ivette Grimes MD Work Phone: [facility] Comment on above: Well adult exam (Carolyn alyssa Dx); Anxiety; Flank pain; LETITIA (obstructive sleep apnea); Type 2 diabetes mellitus with microalbuminuria, with long-term current use of insulin (HCC); Essential (primary) hypertension; Nonalcoholic fatty liver; Obesity, Class III, BMI >= 40; Proteinuria, unspecified type; Headache, unspecified headache type; Encounter for screening mammogram for breast cancer Start: 06-07-2025 End: 06-07-2025 Patient encounter status Ivette Grimes MD Work Phone: [facility] Start: 06-05-2025 ambulatory [facility] Facility:[facility] Start: 06-01-2025 End: 06-01-[address] Bibiana Rehman [facility] Work Phone: Start: 06-01-2025 End: 06-01-[address] Ivette Grimes MD Work Phone: [facility] Start: 05-11-2025 ambulatory Ivette Grimes Facility:[facility] Start: 05-11-[address] Ivette barry MD -Physical Therapy Work Phone: Start: 05-06-2025 End: 05-06-[address] Brett Quiroga MD [facility] Work Phone: Start: 05-06-2025 End: 05-06-[address] Ivette Grimes MD Work Phone: [facility] Start: 05-05-[address] Ivette barry MD -Physical Therapy Work Phone: Start: 04-21-2025 End: 04-21-[address] Bibiana Rehman [place] [facility] Work Phone: Start: 04-21-2025 End: 04-21-[address] Ivette Grimes MD Work Phone: [facility] Work Phone: Start: 04-20-[address] Ivette barry MD -Physical Therapy Work Phone: Start: 04-17-2025 End: 04-17-[address] Ivette Grimes MD Work Phone: [facility] Work Phone: Start: 04-17-2025 End: 04-17-[address] Brett Quiroga MD -[facility] Work Phone: Start: 04-17-2025 End: 04-17-2025 ambulatory Ivette Grimes Facility:[facility] Start: 04-12-2025 End: 04-12-2025 ambulatory Ivette Grimes MD Work Phone: [facility] Comment on above: Muscle relaxer Start: 04-07-2025 End: 04-07-2025 Telephone encounter Ivette Grimes MD Work Phone: [facility] [place] Comment on above: Rx Refills Start: 04-05-2025 End: 04-05-[address] Bibiana Rehman [place] [facility] Work Phone: Start: 04-05-2025 End: 04-05-[address] Ivette Grimes MD Work Phone: [facility] Work Phone: Start: 04-01-2025 End: 04-01-2025 Telephone encounter Amanda Arteaga PA-C Work Phone: Neurology Comment on above: Botox Approved Start: 03-22-2025 End: 03-22-[address] Brett Quiroga MD -[facility] Work Phone: Start: 03-22-2025 End: 03-22-[address] Ivette Grimes MD Work Phone: [facility] Work Phone: Start: 03-19-2025 End: 03-19-2025 Telephone encounter Amanda IRENE-C Work Phone: Neurology Comment on above: Botox Referral Start: 03-11-2025 End: 03-11-[address] Ivette Grimes MD Work Phone: [facility] Work Phone: Start: 03-11-2025 End: 03-11-[address] Brett Quiroga MD -Radiology, [facility] Work Phone: Start: 03-11-2025 End: 03-11-2025 ambulatory Brett Quiroga Facility:[facility] Start: 03-09-2025 End: 03-09-[address] Bibiana Rehman [place] [facility] Work Phone: Start: 03-09-2025 End: 03-09-2025 ambulatory Ivette Grimes Facility:[facility] Start: 03-09-[address] Ivette barry MD -Physical Therapy Work Phone: Start: 03-09-2025 End: 03-09-2025 Telemedicine consultation with patient Amanda Arteaga JONNY Work Phone: Neurology Start: 03-09-2025 End: 03-09-2025 ambulatory Amanda Arteaga JONNY Work Phone: Neurology Comment on above: Intractable chronic migraine without aura and with status migrainosus (Primary Dx) Start: 03-04-2025 End: 03-04-2025 Telephone encounter Amanda Arteaga JONNY Work Phone: Neurology Start: 03-02-2025 End: 03-02-2025 Telemedicine consultation with patient Ivette Grimes MD Work Phone: [facility] [place] Start: 03-02-2025 End: 03-02-2025 ambulatory Ivette Grimes MD Work Phone: [facility] Comment on above: Intractable chronic migraine without aura and without status migrainosus (Primary Dx); Chronic left shoulder pain Start: 02-16-2025 ambulatory Ivette Grimes Facility[facility] Start: 02-04-2025 End: 02-04-[address] Bibiana Rehman [place] [facility] Work Phone: Start: 02-04-2025 End: 02-04-2025 ambulatory Ivette Grimes Facility:[facility] Start: 01-28-2025 End: 01-28-2025 Chart abstracting Ivette Grimes MD Work Phone: [facility] Start: 01-28-2025 End: 03-30-2025 Follow-up encounter Ivette Grimes MD Work Phone: [facility] Start: 01-28-2025 End: 02-08-2025 Telephone encounter Ivette Grimes MD Work Phone: [facility] Comment on above: PA new dose of ozemp ic Results Start: 01-28-2025 End: 01-28-[address] Ivette Grimes MD Work Phone: [facility] Work Phone: Start: 01-28-2025 End: 01-28-[address] Ivette Grimes MD -Laboratory Work Phone: Start: 01-28-2025 End: 01-28-2025 ambulatory Ivette Grimes Facility:[facility] Start: 01-22-2025 End: 01-22-2025 ambulatory IVETTE GRIMES Facility:[facility] Start: 01-22-2025 End: 01-22-2025 Patient encounter procedure Ivette Grimes MD Work Phone: [facility] Comment on above: LETITIA (obstructive sle ep apnea) (Primary Dx); Flank pain; Headache, unspecified headache type; Type 2 diabetes mellitus with microalbuminuria, with long-term current use of insulin (HCC); Essential (primary) hypertension; Chronic left shoulder pain; Anxiety; Screening for depression Start: 12-24-2024 End: 12-25-2024 Refill Ivette Grimes MD Work Phone: [facility] Comment on above: Refill Request Start: 12-21-2024 End: 12-24-2024 Telephone encounter Jenni Martínez APRN.TRANSFER PROFESSOR Work Phone: [facility] Comment on above: Results (Labs/Chest xray ) Start: 12-11-2024 End: 12-11-2024 Telephone encounter Ivette Grimes MD Work Phone: [facility] Comment on above: Orders Start: 12-11-2024 End: 12-11-2024 Patient encounter procedure Jenni Martínez LEAD GENERATION SPECIALIST-C -Radiology, [facility] Work Phone: Start: 12-11-2024 End: 12-11-2024 Office outpatient visit 25 minutes Jenni Martínez APRN.TRANSFER PROFESSOR Work Phone: [facility] Comment on above: Sinobronchitis (Prim ziyad Dx); Hypokalemia Start: 12-11-2024 End: 12-11-2024 ambulatory JENNI MARTÍNEZ Facility:[facility] Start: 12-11-2024 End: 12-11-2024 ambulatory [facility] Facility:[facility] Start: 11-25-2024 End: 11-25-2024 Refill Ivette Grimes MD Work Phone: [facility] Comment on above: Refill Request Start: 11-23-2024 End: 11-23-2024 Refill Ivette Grimes MD Work Phone: [facility] Comment on above: Refill Request Start: 11-17-2024 End: 12-18-2024 ambulatory Ivette Grimes MD Work Phone: [facility] Start: 11-11-2024 End: 11-11-2024 Emergency department patient visit Dr. Buddy Hall DO -Emergency Department Work Phone: Start: 10-26-2024 End: 10-26-2024 Refill Ivette Grimes MD Work Phone: Psychiatry Comment on above: Refill Request Start: 10-19-2024 End: 10-19-2024 ambulatory Ivette Grimes MD Work Phone: [facility] Comment on above: Flank pain (Primary Dx) Start: 10-19-2024 End: 10-19-2024 Telemedicine consultation with patient Ivette Grimes MD Work Phone: [facility] Start: 10-19-2024 End: 10-19-[address] Bibiana Rehman [place] [facility] Work Phone: Start: 10-19-2024 End: 10-19-2024 ambulatory [facility] Facility:[facility] Start: 10-16-2024 End: 10-16-2024 Emergency department patient visit Dr. Sam Pearl MD -Emergency Department Work Phone: Start: 10-07-2024 ambulatory [facility] Start: 09-24-2024 End: 09-24-2024 ambulatory Ivette Grimes MD Work Phone: [facility] [place] [place] Comment on above: Dysuria (Primary Dx) ; Type 2 diabetes mellitus with microalbuminuria, with long-term current use of insulin (HCC); Primary insomnia Start: 09-24-2024 End: 09-24-2024 Telemedicine consultation with patient Ivette Grimes MD Work Phone: [facility] Start: 09-09-2024 End: 09-09-2024 ambulatory Ivette Grimes Facility:[facility] Start: 09-03-2024 End: 09-03-2024 ambulatory FATUMAJOSE ROBERTSJASS Facility:[facility] Start: 09-03-2024 End: 09-03-2024 Patient encounter procedure Fatuma Beckford PA-C Work Phone: Neurology Comment on above: Intractable chronic migraine without aura and without status migrainosus (Primary Dx) Start: 09-01-2024 End: 09-02-2024 Telephone encounter Fatuma Shakeel FULLER Work Phone: Neurology Comment on above: Appointment Patient Question Start: 08-25-2024 End: 08-25-2024 ambulatory Ivette Eads Facility:[facility] Start: 08-13-2024 End: 08-13-2024 ambulatory [facility] Facility:[facility] Start: 08-11-2024 End: 08-11-2024 Telephone encounter Fatuma Beckford PA-C Work Phone: Neurology Comment on above: Appointment Start: 08-10-2024 End: 08-11-2024 Refill Ivette Grimes MD Work Phone: [facility] [place] Comment on above: Refill Request Start: 08-05-2024 End: 08-06-2024 Telephone encounter Ivette Grimes MD Work Phone: [facility] [place] Comment on above: Insurance Authorizat ion (Ozempic ) Start: 08-05-2024 End: 08-05-2024 ambulatory IVETTE GRIMES Facility:[facility] Start: 08-05-2024 End: 08-05-2024 Patient encounter procedure [...] encounter status Ivette Grimes MD Work Phone: [facility] Start: 07-30-2024 End: 07-30-2024 ambulatory [facility] Facility:[facility] Start: 07-24-2024 End: 07-27-2024 Refill Ivette Grimes MD Work Phone: Psychiatry Comment on above: Refill Request Start: 07-22-2024 End: 07-22-2024 ambulatory [facility] Facility:[facility] Start: 07-21-2024 End: 07-21-2024 Telephone encounter Ivette Grimes MD Work Phone: [facility] Comment on above: Orders Start: 07-16-2024 End: 07-16-2024 ambulatory [facility] Facility:[facility] Start: 07-09-2024 End: 07-10-2024 Telephone encounter Ivette Grimes MD Work Phone: [facility] Comment on above: Patient Question Start: 07-08-2024 End: 07-08-2024 Chart abstracting Ivette Grimes MD Work Phone: [facility] Start: 07-08-2024 End: 07-08-2024 Telephone encounter Ivette Grimes MD Work Phone: [facility] Comment on above: Results Start: 07-07-2024 End: 07-07-2024 Chart abstracting Ivette Grimes MD Work Phone: [facility] [place] Start: 07-03-2024 End: 07-03-2024 Patient encounter procedure Ivette Grimes MD Work Phone: [facility] [place] Comment on above: Bronchitis (Primary Dx); Type 2 diabetes mellitus with microalbuminuria, with long-term current use of insulin (HCC); Wheezing Start: 07-03-2024 End: 07-04-2024 ambulatory IVETTE GRIMES Facility:[facility] Start: 07-02-2024 End: 07-02-2024 ambulatory Ivette Grimes Facility:[facility] Start: 06-27-2024 End: 06-29-2024 Refill Ivette Grimes MD Work Phone: [facility] [place] Comment on above: Refill Request Start: 06-11-2024 ambulatory Ivette Grimes MD Work Phone: [facility] [place] Comment on above: Good Afternoon Start: 06-05-2024 ambulatory Fatuma vásquez PA-C Work Phone: Neurology Comment on above: Botox Start: 06-05-2024 E-mail encounter fro m caregiver Fatuma Shakeel FLULER Work Phone: Neurology Start: 06-04-2024 Telephone encounter Fatuma perales PA-C Work Phone: Neurology Comment on above: Insurance Authorizat ion ([employer]ur[employer]) Start: 06-03-2024 End: 06-03-2024 ambulatory Ivette Grimes MD Work Phone: [facility] [place] Comment on above: Left sided sciatica (Primary Dx); Screening for depression Start: 06-03-2024 End: 06-03-2024 Telemedicine consultation with patient Ivette Grimes MD Work Phone: [facility] [place] Start: 05-12-2024 Refill Ivette Grimes MD Work Phone: [facility] [place] Comment on above: Refill Request Start: 05-01-2024 Telephone encounter Ivette Grimes MD Work Phone: [facility] Comment on above: medication not on cu rrent medication list Start: 04-20-2024 Refill Ivette Grimes MD Work Phone: [facility] [place] Comment on above: Refill Request Start: 04-19-2024 Refill Ivette Grimes MD Work Phone: [facility] [place] Comment on above: Refill Request Start: 04-14-2024 Refill Grace morales APRN.CNP Work Phone: Psychiatry Comment on above: Refill Request Insurance Authorizat ion (Trulicity ) Start: 04-06-2024 Telephone encounter Fatuma perales TETOPrasad Work Phone: Neurology Comment on above: Insurance Authorizat ion (Botox ) Start: 04-02-2024 End: 04-02-2024 Patient encounter procedure Fatuma IRENE-C Work Phone: Neurology Comment on above: Intractable chronic migraine without aura and without status migrainosus (Primary Dx) Start: 02-28-2024 Refill Stephanie Paz LICENSE CLERK.TRANSFER PROFESSOR Work Phone: [facility] Comment on above: Refill Request Start: 02-04-2024 End: 02-04-2024 Emergency department patient [facility]: Start: 01-22-2024 Refill Ivette Grimes MD Work Phone: [facility] Comment on above: Refill Request Start: 01-01-2024 Refill Grace morales LICENSE CLERK.TRANSFER PROFESSOR Work Phone: Psychiatry Comment on above: Refill Request Start: 12-27-2023 Telephone encounter Fatuma perales TETOPrasad Work Phone: Neurology Comment on above: Insurance Authorizat ion Start: 12-26-2023 End: 12-26-2023 Patient encounter procedure Fatuma Beckford PA-C Work Phone: Neurology Comment on above: Intractable chronic migraine without aura and without status migrainosus (Primary Dx) Start: 12-10-2023 End: 12-10-[address] Ivette Grimes Work Phone: [facility]-P[facility] Medicine [facility] Work Phone: Start: 12-09-2023 End: 12-09-2023 Patient encounter procedure Ivette Grimes MD Work Phone: [facility] Comment on above: Essential (primary) hypertension (Primary Dx); LETITIA (obstructive sleep apnea); Fatty liver; Vertigo; Anxiety Start: 12-09-2023 Telephone encounter Ivette Grimes MD Work Phone: [facility] [place] Comment on above: Orders Start: 12-06-2023 End: 12-06-[address] Ivette Grimes Work Phone: [facility] Work Phone: Start: 12-06-2023 End: 12-06-[address] Ivette Grimes Work Phone: [facility]-Laboratory, [facility] Start: 12-05-2023 ambulatory Ivette Grimes MD Work Phone: [facility] [place] Comment on above: Labs Start: 10-27-2023 End: 10-27-2023 Emergency department patient visit Self Referred [facility]-Emergency Department Work Phone: Start: 10-14-2023 Refill [facility] Comment on above: Refill Request Start: 09-23-2023 Refill Adriana Patel Work Phone: Psychiatry Comment on above: Refill Request Start: 09-12-2023 End: 09-12-2023 Patient encounter procedure Self Referred [facility] Work Phone: Start: 09-09-2023 Refill [facility] Comment on above: Refill Request Start: 08-21-2023 E-mail encounter fro m caregiver [facility] Start: 08-21-2023 Patient encounter procedure [facility] Neurology Comment on above: Botox Appointment Start: 08-20-2023 Telephone encounter Ivette Grimes MD Work Phone: [facility] [place] Comment on above: Forms ([facility] preventat ashish care ) Start: 08-15-2023 End: 08-15-2023 Patient encounter procedure Self Referred [facility] Work Phone: Start: 08-07-2023 Non-patient / Non-visit Self Referre d [facility] [facility] Work Phone: Start: 08-06-2023 Non-patient / Non-visit Self Referre d [facility] [facility] Work Phone: Start: 08-06-2023 Non-patient / Non-visit Self Referre d [facility] Start: 08-05-2023 End: 08-07-2023 Evaluation and management of inpatient Dr. Ivette Grimes Work Phone: [facility]-Progressive Care Unit Work Phone: Start: 08-05-[address] Reji Grimes Work Phone: [facility] Work Phone: Start: 08-01-2023 End: 08-01-[address] Ivette Grimes Work Phone: [facility] Work Phone: Start: 08-01-2023 End: 08-01-2023 ambulatory Self Referred [facility] Work Phone: Start: 08-01-2023 End: 08-01-2023 Discharged Recurring Self Referred [facility]-Physical Therapy Work Phone: Start: 08-01-[address] Gerald Grimes Work Phone: [facility] Therapy Work Phone: Start: 07-18-2023 End: 07-18-[address] [email or web address] Work Phone: Start: 07-18-2023 End: 07-18-[address] Ivette Grimes Work Phone: [facility] Work Phone: Start: 07-18-2023 End: 07-18-[address] Iv[facility] Grimes [facility]: Start: 07-05-2023 Refill Ivette Grimes MD Work Phone: [facility] Comment on above: Refill Request Start: 06-20-2023 End: 06-20-[address] Ivette Grimes Work Phone: [facility] Work Phone: Start: 06-19-2023 End: 06-20-2023 Patient encounter procedure Umesh Delgado Work Phone: Podiatry Comment on above: Plantar [...] encounter procedure Dr. Ivette Grimes Work Phone: [facility] Work Phone: Start: 06-06-2023 End: 06-06-2023 Patient encounter procedure Ivette Grimes MD Work Phone: [facility] Comment on above: Type 2 diabetes [...] 05-29-2023 End: 05-29-2023 Patient encounter procedure Isiah Funes APRN.TRANSFER PROFESSOR Work Phone: [facility] Comment on above: Foot pain, right (Pr imary Dx) Start: 05-29-2023 Telephone encounter Nicole vaca PA-C Work Phone: Urgent Care Comment on above: Pt requesting Boot Start: 05-28-2023 End: 05-28-2023 Subsequent hospital visit by physician X[place] [facility] Comment on above: Pain of right heel [ M79.671] Start: 05-20-2023 End: 05-20-2023 Emergency department patient visit Dr. Ivette Grimes Work Phone: [facility] Work Phone: Start: 05-17-2023 End: 05-17-2023 Patient encounter procedure Fatuma Beckford PA-C Work Phone: Neurology Comment on above: Intractable chronic migraine without aura and without status migrainosus (Primary Dx); Post concussive syndrome Start: 05-09-[address] Gerald Grimes Work Phone: [facility] Work Phone: Start: 05-07-2023 Refill Ivette Grimes MD Work Phone: [facility] Comment on above: Refill Request Start: 04-30-2023 End: 04-30-[address] Ivette Grimes [facility] Phone[facility] Work Phone: Start: 04-16-2023 End: 04-16-[address] Ivette Grimes Work Phone[facility] Work Phone: Start: 04-04-2023 Refill Ivette Grimes MD Work Phone: [facility] Comment on above: Refill Request Start: 04-02-2023 End: 04-02-[address] Ivette Grimes Work Phone: [facility] Work Phone: Start: 04-02-2023 End: 04-02-[address] Ivette Grimes Work Phone: [facility] Work Phone: Start: 04-02-2023 End: 04-02-[address] Ivette Grimes Work Phone: [facility]Neurology Work Phone: Start: 03-20-2023 Telephone encounter Fatuma TOL[place] Work Phone: Neurology Comment on above: Medication Authoriza tion (Botox renewal ) Start: 03-19-2023 End: 03-19-[address] Ivette Grimes Work Phone: [facility] Work Phone: Start: 03-12-2023 ambulatory Fatuma vásquez PA-C Work Phone: Neurology Comment on above: EEG Start: 03-09-2023 ambulatory Karen lópez APRN.TRANSFER PROFESSOR Work Phone: Neurology Comment on above: Botox Start: 03-05-[address] Gerald Grimes Work Phone: [facility] Start: 03-05-2023 End: 03-05-2023 Patient encounter [...] 03-04-2023 ambulatory Ivette Grimes MD Work Phone: [facility] Comment on above: Question regarding M ICROALBUMIN/CREATININE UR W RATIO (EXTERNAL) labs Start: 03-04-2023 E-mail encounter fro wilian caregiver Ivette Grimes MD Work Phone: [facility] Start: 03-04-2023 Telephone encounter Ivette Grimes MD Work Phone: [facility] Comment on above: Medication change re quested Start: 03-04-2023 End: 03-04-[address] Ivette Grimes Work Phone: [facility] Start: 03-01-2023 Telephone encounter Ivetet Mejia MD Work Phone: Neurology Comment on above: Appointment Start: 03-01-2023 End: 03-01-2023 Patient encounter procedure Ivette Mejia MD Work Phone: Neurology Comment on above: Post concussion synd roberta (Primary Dx); LETITIA (obstructive sleep apnea) Start: 02-28-2023 End: 02-28-2023 Patient encounter procedure Ivette Grimes MD Work Phone: [facility] Comment on above: Soft tissue mass (Pr imary Dx); Post concussive syndrome; Essential (primary) hypertension; Type 2 diabetes mellitus with microalbuminuria, with long-term current use of insulin (HCC); Headache, unspecified headache type; Myalgia Start: 02-28-2023 End: 02-28-[address] Ivette Grimes Work Phone: [facility] Start: 02-28-2023 End: 02-28-2023 Subsequent hospital visit by physician Mri Radio [facility] (I-Stat/1.5t) Work Phone: Radiology Comment on above: Post concussion synd roberta [F07.81] Start: 02-27-2023 Telephone encounter Ivette Grimes MD Work Phone: [facility] Comment on above: Medication Request Start: 02-22-2023 Refill Ivette Grimes MD Work Phone: [facility] Comment on above: Refill Request Start: 02-15-2023 End: 02-15-2023 [facility] Grace James Berna WILSON Work Phone: Psychiatry Comment on above: VAHE (generalized anx iety disorder) (Primary Dx); Recurrent major depressive disorder, in full remission (HCC) Start: 02-14-2023 End: 02-14-[address] Ivette Grimes Work Phone: [facility] Start: 02-14-[address] Gerald Grimes Work Phone: [facility] Start: 02-11-2023 Refill Ivette Grimes MD Work Phone: [facility] Comment on above: Refill Request Start: 02-09-2023 Telephone encounter Ivette Grimes MD Work Phone: [facility] Comment on above: Results Start: 02-08-2023 End: 02-08-[address] Ivette Grimes Work Phone: [facility] Work Phone: Start: 02-08-2023 End: 02-08-[address] Ivette Grimes Work Phone: [facility] Start: 01-31-2023 Telephone encounter Ivette Grimes MD Work Phone: [facility] Comment on above: Orders Start: 01-31-2023 End: 01-31-[address] Ivette Grimes Work Phone: [facility] Start: 01-31-2023 End: 01-31-2023 Patient encounter procedure Ivette Grimes MD Work Phone: [facility] Comment on above: Post concussive synd roberta (Primary Dx); Headache, unspecified headache type; Injury of neck, subsequent encounter Start: 01-24-2023 End: 01-24-2023 ambulatory [facility] Facility:[facility] Start: 01-24-2023 End: 01-24-2023 Patient encounter procedure Elle Sanchez MD Work Phone: [facility] Comment on above: Chronic left shoulde r pain (Primary Dx); Adhesive capsulitis of left shoulder; Neuropathic pain; Primary osteoarthritis of left shoulder; Myofascial pain; Lumbar spondylosis Start: 01-22-2023 End: 01-22-2023 Patient encounter procedure Karen Bansal APRN.TRANSFER PROFESSOR Work Phone: Neurology Comment on above: Intractable chronic migraine without aura and without status migrainosus (Primary Dx) Start: 01-17-2023 End: 01-17-[address] Ivette Grimes Work Phone: [facility] Work Phone: Start: 01-17-2023 End: 01-17-[address] Ivette Grimes Work Phone: [facility] Start: 01-17-2023 End: 01-17-2023 Patient encounter procedure Ivette Grimes MD Work Phone: [facility] Comment on above: Post concussive synd roberta (Primary Dx); Headache, unspecified headache type; Injury of neck, subsequent encounter Start: 01-17-2023 End: 01-17-[address] Ivette Grimes Work Phone: [facility] Start: 01-09-2023 Refill Ivette Grimes MD Work Phone: [facility] Comment on above: Refill Request Start: 01-08-2023 Telephone encounter Ivette Grimes MD Work Phone: [facility] Comment on above: Insurance Authorizat ion (Trulicity ) Start: 01-04-2023 End: 01-04-2023 Patient encounter procedure Ivette Grimes MD Work Phone: [facility] Comment on above: Post concussive synd roberta (Primary Dx); Headache, unspecified headache type Start: 01-03-2023 End: 01-03-[address] Ivette Grimes Work Phone: [facility] Start: 01-02-2023 End: 01-02-2023 ambulatory [facility] Facility:[facility] Start: 01-01-2023 Telephone encounter Ivette Grimes MD Work Phone: [facility] [place] Comment on above: Patient Update Start: 12-28-2022 End: 12-28-[address] Ivette Grimes Work Phone: [facility] Start: 12-26-2022 End: 12-26-2022 Patient encounter procedure Ivette Grimes MD Work Phone: [facility] Comment on above: Post concussion synd roberta (Primary Dx); Essential (primary) hypertension Refill Request Start: 12-24-2022 Refill Karen lópez APRN.CNP Work Phone: Neurology Comment on above: Refill Request MRI'S need prior aut horization with workman comp Start: 12-20-2022 End: 12-20-[address] Ivette Grimes Work Phone: [facility] Start: 12-14-2022 End: 12-14-2022 Patient encounter procedure Ivette Grimes MD Work Phone: [facility] Comment on above: Post concussion synd roberta (Primary Dx); Essential (primary) hypertension; Microalbuminuria; Type 2 diabetes mellitus without complication, with long-term current use of insulin (HCC) Start: 12-11-2022 Refill Ivette Grimes MD Work Phone: [facility] Comment on above: Refill Request Mri Start: 12-07-2022 End: 12-07-2022 Patient encounter procedure Ivette Mejia MD Work Phone: Neurology Comment on above: Post concussion synd roberta (Primary Dx); Intractable acute post-traumatic headache; Dizziness; Cervicalgia; History of migraine; LETITIA (obstructive sleep apnea) Start: 12-07-2022 End: 12-07-2022 Patient encounter procedure Ivette Grimes MD Work Phone: [facility] Comment on above: Headache, unspecifie d headache type (Primary Dx); Concussion with loss of consciousness, initial encounter Start: 12-06-2022 End: 12-06-[address] Ivette Grimes Work Phone: [facility] Start: 12-06-2022 End: 12-06-[address] Ivette Grimes Work Phone: [facility] Start: 12-04-2022 Telephone encounter Ivette Grimes MD Work Phone: [facility] Comment on above: Hank requesting records Start: 12-03-2022 End: 12-03-2022 Emergency department patient [facility] Start: 12-03-2022 Telephone encounter Ivette Grimes MD Work Phone: [facility] Comment on above: Patient Update Start: 11-30-2022 End: 11-30-2022 ambulatory Ivette Grimes MD Work Phone: [facility] Comment on above: Headache, unspecifie d headache type (Primary Dx); Concussion with loss of consciousness, initial encounter Start: 11-30-2022 End: 11-30-2022 Telemedicine consultation with patient Ivette Grimes MD Work Phone: [facility] Start: 11-29-2022 Telephone encounter Elle Sanchez MD Work Phone: [facility] [place] Comment on above: Patient Question ( john paul appointment on 12/05/22) Start: 11-27-2022 End: 11-27-2022 Emergency department patient visit Dr[facility] Ivette Grimes [facility] Start: 11-27-2022 End: 11-27-[address] Ivette Grimes Work Phone: [facility] Comment on above: Worst headache of li fe (Primary Dx); Concussion with loss of consciousness, initial encounter Start: 11-27-[address] Gerald Grimes [facility] Start: 11-24-2022 End: 11-24-2022 Emergency department patient visit Dr. Ivette Grimes Work Phone: [facility] Start: 11-23-2022 Refill Ivette Grimes MD Work Phone: [facility] Comment on above: Refill Request Start: 11-22-[address] Gerald Grimes [facility] Start: 11-22-2022 End: 11-22-[address] Ivette Grimes Work Phone: [facility] Start: 11-20-2022 Orders Only Elle Sanchez MD Work Phone: [facility] [place] Comment on above: Chronic left shoulde r pain (Primary Dx); Adhesive capsulitis of left shoulder Start: 11-15-2022 Refill Ivette Grimes MD Work Phone: [facility] Comment on above: Refill Request Start: 11-08-2022 End: 11-08-2022 ambulatory ADELINA MASON Facility:[facility] Start: 11-08-2022 Telephone encounter Elle Sanchez MD Work Phone: [facility] Comment on above: Injections Start: 11-08-2022 End: 11-08-2022 Patient encounter procedure Adelina Mason LICENSE CLERK.TRANSFER PROFESSOR Work Phone: [facility] Comment on above: Chronic left shoulde r pain (Primary Dx); Adhesive capsulitis of left shoulder; Neuropathic pain; Myofascial pain Start: 11-08-2022 End: 11-08-[address] Ivette Grimes Work Phone: [facility] Start: 10-23-2022 End: 10-23-[address] Ivette Grimes Work Phone: [facility] Start: 10-16-2022 End: 10-16-[address] Ivette Grimes Work Phone: [facility] Start: 10-16-[address] Gerald Grimes Work Phone: [facility] Start: 10-15-2022 End: 10-15-[address] Ivette Grimes Work Phone: [facility] Work Phone: Start: 10-15-2022 End: 10-15-[address] Ivette Grimes Work Phone: [facility] Start: 10-12-2022 End: 10-12-2022 [facility] Grace Coronel LICENSE CLERK.TRANSFER PROFESSOR Work Phone: Psychiatry Comment on above: VAHE (generalized anx iety disorder) (Primary Dx); Major depressive disorder, recurrent episode, moderate (HCC) Start: 10-10-2022 ambulatory [facility] Comment on above: Botox Start: 10-10-2022 E-mail encounter escobar cedeno caregiver [facility] Start: 10-06-2022 Refill Tara alcantar LICENSE CLERK.TRANSFER PROFESSOR Work Phone: Neurology Comment on above: Refill Request Start: 10-05-2022 Refill Ivette Grimes MD Work Phone: [facility] [place] Comment on above: Refill Request Start: 10-02-2022 Telephone encounter Adelina lazaro LICENSE CLERK.TRANSFER PROFESSOR Work Phone: [facility] [place] Comment on above: Appointment; Patient Question Start: 10-02-2022 End: 10-02-[address] Ivette Grimes Work Phone: [facility] Start: 09-19-2022 Refill Ivette Grimes MD Work Phone: [facility] Comment on above: Refill Request Start: 09-13-2022 End: 09-13-[address] [facility] Start: 09-13-[address] Gerald Grimes [facility] Start: 09-12-2022 ambulatory Ivette Grimes MD Work Phone: [facility] Start: 09-12-2022 Chart abstracting Rivka SwansonW Work Phone: Adult Psychology Comment on above: Behavioral [facility] Work Start: 09-12-2022 Follow-up encounter Ivette Grimes MD Work Phone: [facility] Comment on above: Follow up (couldn t reply to other message) Start: 09-06-2022 End: 09-06-2022 Refill Ivette Grimes MD Work Phone: [facility] Comment on above: Refill Request Start: 09-06-2022 End: 09-06-[address] Ivette Grimes Work Phone: [facility] Start: 09-04-2022 ambulatory Ivette Grimes MD Work Phone: [facility] Comment on above: Migraine/botox quest ion Start: 09-04-2022 End: 09-04-2022 Patient encounter procedure Ivette Grimes MD Work Phone: [facility] Comment on above: Lightheadedness (Carolyn alyssa Dx); Essential (primary) hypertension; Prolonged Q-T interval on ECG; Type 2 diabetes mellitus with microalbuminuria, with long-term current use of insulin (HCC); Fatty liver; LETITIA (obstructive sleep apnea) Start: 09-04-[address] Gerald Grimes [facility] Start: 09-03-2022 End: 09-03-2022 ambulatory Ivette Grimes MD Work Phone: [facility] Comment on above: Malaise (Primary Dx) Start: 09-03-2022 End: 09-03-2022 Telemedicine consultation with patient Ivette Grimes MD Work Phone: [facility] Start: 09-03-2022 E-mail encounter fro m caregiver [facility] Start: 09-03-2022 Patient encounter procedure [facility] Comment on above: Botox Appointment Start: 08-30-2022 Non-patient / Non-visit Dr. Regina Grimes Work Phone: [facility] Start: 08-30-2022 End: 08-30-[address] Ivette Grimes Work Phone: [facility] Work Phone: Start: 08-30-2022 End: 08-30-[address] Ivette Grimes Work Phone: [facility] Start: 08-29-2022 End: 08-29-[address] Ivette Grimes Work Phone: [facility] Work Phone: Start: 08-29-2022 End: 08-29-[address] Ivette Grimes Work Phone: [facility] Start: 08-27-2022 ambulatory Ivette Grimes MD Work Phone: [facility] Comment on above: Quick question Start: 08-21-2022 Telephone encounter Karen renee APRN.TRANSFER PROFESSOR Work Phone: Neurology Comment on above: Medication Authoriza tion (Botox Approved) Start: 08-21-2022 End: 08-21-[address] Ivette Grimes Work Phone: [facility] Start: 08-16-2022 End: 08-16-[address] Ivette Grimes Work Phone: [facility] [facility] Start: 08-16-[address] Gerald Grimes Work Phone: [facility] Start: 08-10-2022 End: 08-10-[address] Ivette Grimes Work Phone: [facility] Work Phone: Start: 08-10-2022 End: 08-10-[address] Ivtete Grimes Work Phone: [facility] Start: 08-08-2022 Chart abstracting Ivette Martínez MD Work Phone: [facility] Start: 08-08-2022 Telephone encounter Adelina lazaro LICENSE CLERK.TRANSFER PROFESSOR Work Phone: [facility] [place] Comment on above: Patient Update Start: 08-08-2022 End: 08-08-[address] Ivette Grimes Work Phone: [facility] Work Phone: Start: 08-08-2022 End: 08-08-[address] Ivette Grimes Work Phone: [facility] Start: 08-07-[address] Gerald Grimes Work Phone: [facility] Start: 08-07-2022 End: 08-07-[address] Ivette Grimes Work Phone: [facility] Start: 08-06-2022 ambulatory Ivette Grimes MD Work Phone: [facility] Comment on above: Labs Start: 08-02-2022 ambulatory Karen lópez LICENSE CLERK.TRANSFER PROFESSOR Work Phone: Neurology Comment on above: Migraines Start: 08-02-2022 End: 08-02-[address] Ivette Grimes Work Phone: [facility] Start: 08-02-2022 End: 08-02-2022 Patient encounter procedure Ivette Grimes MD Work Phone: [facility] Comment on above: Type 2 diabetes fred itus with microalbuminuria, with long-term current use of insulin (HCC) (Primary Dx); Fatty liver; LETITIA (obstructive sleep apnea); Microalbuminuria; Lumbar disc disorder; Prolonged Q-T interval on ECG; Fatigue, unspecified type Start: 08-01-2022 ambulatory Ivette Grimes MD Work Phone: [facility] Comment on above: Leadership Program Associate Start: 08-01-2022 Telephone encounter Karen renee APRN.TRANSFER PROFESSOR Work Phone: Neurology Comment on above: Medication Authoriza tion (Botox referral) Start: 07-24-2022 End: 07-24-[address] Ivette Grimes Work Phone: [facility] Start: 07-24-2022 End: 07-24-[address] Ivette Grimes Work Phone: [facility] Work Phone: Start: 07-24-2022 End: 07-24-[address] Ivette Grimes Work Phone: [facility] Start: 07-23-2022 Refill Ivette Grimes MD Work Phone: [facility] Comment on above: Refill Request Start: 07-19-2022 Telephone encounter Elle Sanchez MD Work Phone: [facility] Comment on above: Patient Update (Inje ction questions ) Start: 07-19-2022 End: 07-19-2022 Patient encounter procedure Karen Bansal APRN.TRANSFER PROFESSOR Work Phone: Neurology Comment on above: Intractable chronic migraine without aura and without status migrainosus (Primary Dx); Mixed migraine and muscle contraction headache Start: 07-19-2022 End: 07-19-2022 ambulatory ADELINA MASON Facility:[facility] Start: 07-10-2022 Refill Wilian Glen Jun kessler PA-C Work Phone: [facility] Comment on above: Refill Request Start: 07-10-2022 End: 07-10-[address] Ivette Grimes Work Phone: [facility] Start: 07-03-2022 ambulatory Tara alcantar LICENSE CLERK.TRANSFER PROFESSOR Work Phone: Neurology Comment on above: Medication Question Start: 06-28-2022 End: 06-28-[address] Ivette Grimes Work Phone: [facility] Start: 06-22-2022 Refill Ivette Grimes MD Work Phone: [facility] Comment on above: Refill Request Start: 06-07-2022 End: 06-07-2022 Patient encounter procedure Tara Gillette LICENSE CLERK.TRANSFER PROFESSOR Work Phone: Neurology Comment on above: Intractable migraine without aura and without status migrainosus (Primary Dx); Medication overuse headache; LETITIA (obstructive sleep apnea); Class 3 severe obesity with body mass index (BMI) of 45.0 to 49.9 in adult, unspecified obesity type, unspecified whether serious comorbidity present (HCC) Start: 06-07-2022 Telephone encounter Tara Herndon LICENSE CLERK.TRANSFER PROFESSOR Work Phone: Neurology Comment on above: Orders Start: 06-05-2022 ambulatory Ivette guzman MD Work Phone: Neurology Comment on above: Labs Start: 06-05-2022 E-mail encounter fro m caregiver Ivette Grimes MD Work Phone: [facility] Start: 06-05-[address] Luz Grimes Work Phone: [facility] Start: 06-04-2022 End: 06-04-[address] Ivette Grimes Work Phone: [facility] Start: 05-29-2022 Telephone encounter Tara Herndon LICENSE CLERK.TRANSFER PROFESSOR Work Phone: Neurology Comment on above: Appointment Start: 05-29-2022 End: 05-29-[address] Ivette Grimes Work Phone: [facility] Start: 05-24-2022 End: 05-24-2022 ambulatory ADELINA Wilian YVES Facility:[facility] Start: 05-24-2022 End: 05-24-2022 Patient encounter procedure Adelina Mason LICENSE CLERK.TRANSFER PROFESSOR Work Phone: [facility] Comment on above: Chronic left shoulde r pain (Primary Dx); Adhesive capsulitis of left shoulder; Primary osteoarthritis of left shoulder; Myofascial pain Start: 05-14-2022 End: 05-14-[address] Ivette Grimes Work Phone: [facility] Start: 05-11-2022 Telephone encounter Elle Sanchez MD Work Phone: [facility] [place] Comment on above: Procedure Follow Up Start: 05-10-2022 End: 05-10-2022 ambulatory ELLE SANCHEZ Facility:[facility] Start: 05-10-2022 End: 05-10-2022 ambulatory Elle Sanchez MD Work Phone: [facility] [place] Comment on above: Procedure Start: 05-10-2022 End: 05-10-2022 Patient encounter procedure Elle Sanchez MD Work Phone: [facility] Start: 05-08-2022 ambulatory Ivette Grimes MD Work Phone: [facility] Start: 05-08-2022 Follow-up encounter Ivette Grimes MD Work Phone: [facility] Comment on above: Follow up from last appointment Start: 05-04-2022 End: 05-04-[address] 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 Ivette Grimes Work Phone: [facility] Start: 04-19-2022 ambulatory Ivette Grimes MD Work Phone: [facility] Comment on above: Lyrica Start: 04-17-2022 End: 04-17-[address] Ivette Grimes Work Phone: [facility] Start: 04-16-2022 Refill Ivette Grimes MD Work Phone: [facility] Comment on above: Refill Request [employer] Start: 04-09-2022 End: 04-09-2022 Patient encounter procedure Ivette Mejia MD Work Phone: Neurology Comment on above: Intractable migraine without aura and without status migrainosus (Primary Dx); Medication overuse headache; LETITIA (obstructive sleep apnea); Class 3 severe obesity with body mass index (BMI) of 45.0 to 49.9 in adult, unspecified obesity type, unspecified whether serious comorbidity present ([facility]) Start: 04-05-2022 Refill Ivette Grimes MD Work Phone: [facility] Comment on above: Refill Request Start: 04-03-2022 End: 04-03-[address] Ivette Grimes Work Phone: [facility] Start: 03-30-2022 Refill Ivette Grimes MD Work Phone: [facility] [place] Comment on above: Refill Request Start: 03-29-2022 Telephone encounter Elle Sanchez MD Work Phone: [facility] Comment on above: Injections Start: 03-29-2022 End: 03-29-2022 ambulatory ELLE SANCHEZ Facility:[facility] Start: 03-29-2022 End: 03-29-2022 Patient encounter procedure Elle Sanchez MD Work Phone: [facility] Comment on above: Myofascial pain (Carolyn alyssa Dx); Chronic left shoulder pain; Neuropathic pain; Adhesive capsulitis of left shoulder; Primary osteoarthritis of left shoulder Start: 03-16-2022 Refill Ivette Grimes MD Work Phone: [facility] Comment on above: Refill Request Start: 03-03-2022 Refill Wilian Barahona on PA-C Work Phone: [facility] [place] Comment on above: Refill Request Start: 02-28-2022 End: 02-28-2022 Patient encounter procedure Ivette Grimes MD Work Phone: [facility] Comment on above: Upper back pain (Carolyn alyssa Dx); Acute midline low back pain without sciatica; Type 2 diabetes mellitus with microalbuminuria, with long-term current use of insulin (HCC); LETITIA (obstructive sleep apnea); Lumbar disc disorder; Elevated BP without diagnosis of hypertension Start: 02-27-2022 ambulatory Ivette Grimes MD Work Phone: [facility] Comment on above: ER Start: 02-23-2022 Refill Ivette Grimes MD Work Phone: [facility] Comment on above: Refill Request Start: 02-19-2022 E-mail encounter fro m caregiver Ivette Mejia Jr., MD Work Phone: [facility] [place] Start: 02-19-2022 Patient encounter procedure Ivette Mejia MD Work Phone: Neurology Comment on above: Request an Appointme nt Start: 02-08-2022 Chart abstracting Ivette Martínez MD Work Phone: [facility] [place] Start: 02-07-2022 ambulatory Ivette Grimes MD Work Phone: [facility] [place] Comment on above: Lab work Start: 02-07-2022 E-mail encounter fro m caregiver Ivette Grimes MD Work Phone: [facility] [place] Start: 02-07-2022 Telephone encounter Ivette Grimes MD Work Phone: [facility] [place] Comment on above: Results Start: 02-07-2022 End: 02-07-[address] Ivette Grimes Work Phone: [facility] Start: 02-06-[address] Gerald Grimes Work Phone: [facility] Start: 02-06-2022 End: 02-06-[address] Ivette Grimes Work Phone: [facility] Start: 02-05-2022 ambulatory Ivette Grimes MD Work Phone: [facility] [place] Comment on above: Lab work Start: 01-29-2022 Telephone encounter Elle Sanchez MD Work Phone: [facility] [place] Comment on above: New Patient Start: 01-23-2022 End: 01-23-[address] Ivette Grimes Work Phone: [facility] Start: 01-09-2022 End: 01-09-[address] Ivette Grimes Work Phone: [facility] Start: 01-09-2022 Non-patient / Non-visit Dr. Regina Grimes Work Phone: [facility] Start: 01-09-2022 End: 01-09-[address] Ivette Grimes Work Phone: [facility] Start: 01-01-2022 End: 01-01-[address] Ivette Grimes Work Phone: [facility] Start: 12-26-2021 End: 12-26-[address] Ivette Grimes Work Phone: [facility] Start: 11-29-2021 End: 11-29-[address] Ivette Grimes Work Phone: [facility] Start: 11-23-2021 End: 11-23-[address] Ivette Grimes Work Phone: [facility] Start: 11-21-2021 End: 11-21-[address] Ivette Grimes Work Phone: [facility] Start: 11-09-2021 End: 11-09-[address] Ivette Grimes Work Phone: [facility] Start: 10-24-2021 End: 10-24-[address] Ivette Grimes Work Phone: [facility] Start: 12-06-2012 End: 02-22-2014 Patient encounter status Stephanie Paz APRN.TRANSFER PROFESSOR Work Phone: [facility] Start: 01-23-2010 End: 02-22-2014 Patient encounter status Stephanie Paz APRN.TRANSFER PROFESSOR Work Phone: [facility] Procedures Date Procedure Procedure Detail Performing Clinician Start: 04-17-2025 MRI of joint of lowe r extremity Dr. Ivette Grimes MD Work Phone: Start: 03-11-2025 Plain X-ray of shoulder Dr. [...] Mri brain brain stem w/o contrast material Ivette Mejia MD Work Phone: Start: 02-08-2023 Ultrasonography [...] 08-08-2017 Chiropractic manipulative tx spinal 1-2 regions Bibiaan B Dossi DC Work Phone: Start: 08-06-2017 End: 08-06-2017 Appl modality 1/> areas elec stimj unattended Bibiana B Dossi DC Work Phone: Start: 08-06-2017 End: 08-06-2017 Appl modality 1/> areas traction mechanical Bibiana B Dossi DC Work Phone: Start: 08-06-2017 End: 08-06-2017 Chiropractic manipulative tx spinal 1-2 regions Bibiana B Dossi DC Work Phone: Plan of Treatment Date Care Activity Detail Author Start: 06-07-2026 Annual PCP Team Chronic Disease Visit Annual PCP Team Chronic Disease Visit [facility] Start: 03-02-2026 Annual PCP Team Chronic Disease Visit Annual PCP Team Chronic Disease Visit [facility] Start: 02-04-2026 Glaucoma screening Dilated Retinal Exam [facility] Start: 01-22-2026 Annual PCP Team Chronic Disease Visit Annual PCP Team Chronic Disease Visit [facility] Start: 01-22-2026 BP Controlled (<130/80) BP Controlled (<130/80) [facility] Start: 01-22-2026 Depression Screening Depression Screening [facility] Start: 12-11-2025 Annual PCP Team Chronic Disease Visit Annual PCP Team Chronic Disease Visit [facility] Start: 10-19-2025 Annual PCP Team Chronic Disease Visit Annual PCP Team Chronic Disease Visit [facility] Start: 09-24-2025 Annual PCP Team Chronic Disease Visit Annual PCP Team Chronic Disease Visit [facility] Start: 08-05-2025 Annual PCP Team Chronic Disease Visit Annual PCP Team Chronic Disease Visit [facility] Start: 08-05-2025 BP Controlled (<130/80) BP Controlled (<130/80) [facility] Start: 08-05-2025 Covid-19 Vaccine () Covid-19 Vaccine () [facility] Comment on above: Postponed from 07/05/2024 (Declined at t his time) Start: 08-05-2025 Diabetic foot examination Diabetic Foot Exam [facility] Start: 08-05-2025 Pneumococcal vaccination Pneumococcal Vaccine (2 of 2 - PCV) [facility] Comment on above: Postponed from 07/28/2020 (Declined at t his time) Start: 08-05-2025 Urine microalbumin profile DTaP,Tdap,Td Vaccine (2 - Td or Tdap) [facility] Comment on above: Postponed from 06/01/2023 (Declined at t his time) Start: 08-04-2025 End: 08-04-2025 Patient encounter procedure 08/04/2025 4:30 PM EDT Office Visit Neurology [address] [place], [place] [phone] Fatuma Beckford PA-C [address] [place], [place] [phone] [facility] Neurology Comment on above: botox Start: 08-03-2025 End: 08-03-2025 Patient encounter procedure 08/03/2025 2:20 PM EDT Office Visit OB/Gynecology [address] [place], [place] [phone] Galina Camacho MD [address] [place], [place] [phone] annual with pap OB/Gynecology Comment on above: annual with pap Start: 07-31-2025 Hemoglobin A1c measurement HbA1C [facility] Start: 07-08-2025 End: 10-07-2025 Microalbumin/Creatinine [Mass Ratio] in Urine ALBUMIN/CREATININE RATIO, URINE Lab Routine Type 2 diabetes mellitus with microalbuminuria, with long-term current use of insulin (HCC) Expected: 07/08/2025, Expires: 10/07/2025 [facility] Comment on above: Expected: 07/08/2025, Expires: Start: 07-05-2025 Influenza vaccination [facility] Start: 07-05-2025 End: 10-04-2025 Urinalysis complete panel - Urine URINALYSIS, WITH MICROSCOPIC Lab Routine Flank pain Proteinuria, unspecified type Expected: 07/05/2025, Expires: 10/04/2025 [facility] Comment on above: Expected: 07/05/2025, Expires: Start: 07-04-2025 Hepatitis B screening Urine Albumin:Creatinine Ratio [facility] Start: 07-04-2025 Hepatitis B surface antibody level LDL Cholesterol [facility] Start: 07-03-2025 Annual PCP Team Chronic Disease Visit Annual PCP Team Chronic Disease Visit [facility] Start: 06-07-2025 End: 09-06-2025 Cholesterol in LDL [Mass/volume] in Serum or Plasma LDL CHOLESTEROL DIR Lab Routine Type 2 diabetes mellitus with microalbuminuria, with long-term current use of insulin (HCC) Essential (primary) hypertension Expected: 06/07/2025, Expires: 09/06/2025 [facility] Comment on above: Expected: 06/07/2025, Expires: Start: 06-07-2025 End: 09-06-2025 Hemoglobin A1c in Blood HEMOGLOBIN A1C Lab Routine Type 2 diabetes mellitus with microalbuminuria, with long-term current use of insulin (HCC) Expected: 06/07/2025, Expires: 09/06/2025 [facility] Work Phone: Comment on above: Expected: 06/07/2025, Expires: Start: 07-31-2025 Annual PCP Team Chronic Disease Visit Annual PCP Team Chronic Disease Visit [facility] Start: 05-03-2025 Influenza vaccination Influenza Vaccine (#1) [facility] Comment on above: Postponed from 07/05/2024 (Declined at t his time) Start: 04-21-2025 End: 04-21-2025 Patient encounter procedure 04/21/2025 2:00 PM EDT Office Visit Neurology [address] [place] [address] Kristen Enriquez APRN.TRANSFER PROFESSOR [address] [place] [address] botox Neurology Comment on above: botox Start: 03-09-2025 End: 03-09-2025 Patient encounter procedure 03/09/2025 7:25 AM EDT [facility] Neurology [address] [facility] [address] [place] [address] Amanda Arteaga PA-C [address] [facility] [address] [place], [place] [phone] consult botox injection for headache Neurology Comment on above: consult botox injection for headache Start: 01-22-2025 End: 04-23-2025 Basic metabolic 2000 panel - Serum or Plasma BASIC METABOLIC PANEL Lab Routine Essential (primary) hypertension Expected: 01/22/2025, Expires: 04/23/2025 [facility] Comment on above: Expected: 01/22/2025, Expires: Start: 01-22-2025 End: 04-23-2025 Hemoglobin A1c in Blood HEMOGLOBIN A1C Lab Routine Type 2 diabetes mellitus with microalbuminuria, with long-term current use of insulin (HCC) Expected: 01/22/2025, Expires: 04/23/2025 [facility] Work Phone: Comment on above: Expected: 01/22/2025, Expires: Start: 01-01-2025 Hemoglobin A1c measurement HbA1C [facility] Start: 12-26-2024 BP Controlled (<130/80) BP Controlled (<130/80) [facility] Start: 12-25-2024 End: 12-25-2024 Patient encounter procedure 12/25/2024 10:15 AM EST Office Visit OB/Gynecology [address] [place] [address] Karol Mancera APRN.TRANSFER PROFESSOR [address] [place] [address] annual OB/Gynecology Comment on above: annual Start: 12-17-2024 End: 12-17-2024 ambulatory 12/17/2024 9:40 AM EST [facility] [address] [place] [address] Ivette Grimes MD [address] [place] [address] [facility] Comment on above: General Start: 12-11-2024 End: 03-12-2025 Comprehensive metabolic 2000 panel - Serum or Plasma COMPREHENSIVE METABOLIC PANEL Lab Routine Hypokalemia Expected: 12/11/2024, Expires: 03/12/2025 [facility] Comment on above: Expected: 12/11/2024, Expires: Start: 12-09-2024 End: 12-09-2024 Patient encounter procedure 12/09/2024 2:20 PM EST Office Visit OB/Gynecology [address] [place] [address] Galina Camacho MD [address] [place] [address] Check up OB/Gynecology Comment on above: Check up Start: 12-09-2024 Annual PCP Team Chronic Disease Visit Annual PCP Team Chronic Disease Visit [facility] Start: 12-09-2024 BP Controlled (<130/80) BP Controlled (<130/80) [facility] Start: 12-09-2024 Covid-19 Vaccine () Covid-19 Vaccine () [facility] Comment on above: Postponed from 07/05/2023 (Declined at t his time) Start: 12-09-2024 Depression Screening Depression Screening [facility] Start: 11-11-2024 [facility] Start: 11-06-2024 Annual PCP Team Chronic Disease Visit Annual PCP Team Chronic Disease Visit [facility] Start: 10-20-2024 End: 10-20-2024 Patient encounter procedure 10/20/2024 2:20 PM EST Office Visit OB/Gynecology [address] [place], [place] [id number] Galina Camacho MD [address] [place], [place] [phone] Check up OB/Gynecology Comment on above: Check up Start: 09-13-2024 BP Controlled (<130/80) BP Controlled (<130/80) [facility] Start: 09-12-2024 Glaucoma screening Dilated Retinal Exam [facility] Start: 09-10-2024 End: 09-10-2024 Patient encounter procedure Neurology Comment on above: botox Start: 09-03-2024 End: 09-03-2024 Patient encounter procedure 09/03/2024 1:00 PM EDT Office Visit Neurology [address] [place] [id number] Fatuma Beckford PA-C [address] [facility], [place] [phone] botox Neurology Comment on above: botox Start: 08-05-2024 Depression Screening Depression Screening [facility] Comment on above: Postponed from 2000 (Declined at t his time) Start: 08-05-2024 End: 08-05-2024 Patient encounter procedure 08/05/2024 8:00 AM EDT Office Visit [facility] [place] [address] [place], [place] [phone] Ivette Grimes MD [address] [place] [phone] [facility] [place] Comment on above: My health Start: 07-15-2024 Annual PCP Team Chronic Disease Visit Annual PCP Team Chronic Disease Visit [facility] Start: 07-05-2024 Covid-19 Vaccine ( season) Covid-19 Vaccine () [facility] Start: 07-05-2024 Covid-19 Vaccine () Covid-19 Vaccine () [facility] Start: 07-05-2024 Influenza vaccination Influ[facility] Vaccine (#[facility] Start: 07-03-2024 End: 10-02-2024 CBC W Auto Differential panel - Blood COMPLETE BLOOD COUNT AND DIFFERENTIAL Lab Routine Type 2 diabetes mellitus with microalbuminuria, with long-term current use of insulin (HCC) Expected: 07/03/2024, Expires: 10/02/2024 [facility] Work Phone: Comment on above: Expected: 07/03/2024, Expires: Start: 07-03-2024 End: 10-02-2024 Comprehensive metabolic 2000 panel - Serum or Plasma COMPREHENSIVE METABOLIC PANEL Lab Routine Type 2 diabetes mellitus with microalbuminuria, with long-term current use of insulin (HCC) Expected: 07/03/2024, Expires: 10/02/2024 [facility] Comment on above: Expected: 07/03/2024, Expires: Start: 07-03-2024 End: 10-02-2024 Hemoglobin A1c in Blood HEMOGLOBIN A1C Lab Routine Type 2 diabetes mellitus with microalbuminuria, with long-term current use of insulin (HCC) Expected: 07/03/2024, Expires: 10/02/2024 [facility] Comment on above: Expected: 07/03/2024, Expires: Start: 07-03-2024 End: 10-02-2024 Lipid 1996 panel - Serum or Plasma LIPID PANEL BASIC Lab Routine Type 2 diabetes mellitus with microalbuminuria, with long-term current use of insulin (HCC) Expected: 07/03/2024, Expires: 10/02/2024 [facility] Comment on above: Expected: 07/03/2024, Expires: Start: 07-03-2024 End: 10-02-2024 Microalbumin/Creatinine [Mass Ratio] in Urine ALBUMIN/CREATININE RATIO, URINE Lab Routine Type 2 diabetes mellitus with microalbuminuria, with long-term current use of insulin (HCC) Expected: 07/03/2024, Expires: 10/02/2024 [facility] Comment on above: Expected: 07/03/2024, Expires: Start: 06-06-2024 ANNUAL PCP TEAM CHRONIC DISEASE VISIT ANNUAL PCP TEAM CHRONIC DISEASE VISIT [facility] Start: 06-06-2024 COVID-19 VACCINE (4 - Moderna series) COVID-19 VACCINE (4 - Moderna series) [facility] Comment on above: Postponed from 12/13/2021 (Declined at t his time) Start: 06-06-2024 Diabetic foot examination Diabetic Foot Exam [facility] Start: 06-06-2024 Urine microalbumin profile [facility] Comment on above: Postponed from 06/01/2023 (Declined at t his time) Start: 06-05-2024 Hemoglobin A1c measurement HbA1C [facility] Start: 05-17-2024 BP CONTROLLED (<130/80) BP CONTROLLED (<130/80) [facility] Start: 03-26-2024 End: 03-26-2024 Patient encounter procedure 03/26/2024 10:30 AM EDT Office Visit Neurology [address] [place] [address] [place] [address] Fatuma Beckford PA-C [address] [place], [place] [phone] botox 4 of 4 Neurology Comment on above: botox 4 of 4 Start: 03-05-2024 BP CONTROLLED (<130/80) BP CONTROLLED (<130/80) [facility] Start: 03-05-2024 PNEUMOCOCCAL (2 - PCV) PNEUMOCOCCAL (2 - PCV) [facility] Comment on above: Postponed from 07/28/2020 (Declined at t his time) Start: 03-05-2024 Pneumococcal vaccination [facility] Comment on above: Postponed from 07/28/2020 (Declined at t his time) Start: 03-04-2024 Hepatitis B screening URINE ALBUMIN:CREATININE RATIO [facility] Start: 02-29-2024 ANNUAL PCP TEAM CHRONIC DISEASE VISIT ANNUAL PCP TEAM CHRONIC DISEASE VISIT [facility] Start: 02-04-2024 Bacteria identified in Urine by Culture [facility] Start: 02-04-2024 [facility] Start: 02-04-2024 [facility] Start: 02-01-2024 ANNUAL PCP TEAM CHRONIC DISEASE VISIT ANNUAL PCP TEAM CHRONIC DISEASE VISIT [facility] Start: 01-18-2024 ANNUAL PCP TEAM CHRONIC DISEASE VISIT ANNUAL PCP TEAM CHRONIC DISEASE VISIT [facility] Start: 01-05-2024 ANNUAL PCP TEAM CHRONIC DISEASE VISIT ANNUAL PCP TEAM CHRONIC DISEASE VISIT [facility] Start: 12-26-2023 ANNUAL PCP TEAM CHRONIC DISEASE VISIT ANNUAL PCP TEAM CHRONIC DISEASE VISIT [facility] Start: 12-18-2023 HPV TESTING HPV TESTING [facility] Start: 12-18-2023 PAP TESTING PAP TESTING [facility] Start: 12-18-2023 Screening for malignant neoplasm of cervix [facility] Start: 12-14-2023 ANNUAL PCP TEAM CHRONIC DISEASE VISIT ANNUAL PCP TEAM CHRONIC DISEASE VISIT [facility] Start: 12-07-2023 ANNUAL PCP TEAM CHRONIC DISEASE VISIT ANNUAL PCP TEAM CHRONIC DISEASE VISIT [facility] Start: 12-07-2023 End: 02-06-2024 CBC W Auto Differential panel - Blood CBC + DIFF Lab Routine Type 2 diabetes mellitus with microalbuminuria, with long-term current use of insulin ([facility]) Expected: 12/07/2023, Expires: 02/06/2024 [facility] Work Phone: Comment on above: Expected: 12/07/2023, Expires: Start: 12-07-2023 End: 02-06-2024 Comprehensive metabolic 2000 panel - Serum or Plasma COMP METABOLIC PANEL Lab Routine Type 2 diabetes mellitus with microalbuminuria, with long-term current use of insulin ([facility]) Expected: 12/07/2023, Expires: 02/06/2024 [facility] Work Phone: Comment on above: Expected: 12/07/2023, Expires: Start: 12-07-2023 End: 02-06-2024 Hemoglobin A1c in Blood HGB A1C Lab Routine Type 2 diabetes mellitus with microalbuminuria, with long-term current use of insulin (HCC) Expected: 12/07/2023, Expires: 02/06/2024 [facility] Work Phone: Comment on above: Expected: 12/07/2023, Expires: Start: 12-07-2023 End: 02-06-2024 Lipid 1996 panel - Serum or Plasma LIPID PANEL BASIC Lab Routine Type 2 diabetes mellitus with microalbuminuria, with long-term current use of insulin (HCC) Expected: 12/07/2023, Expires: 02/06/2024 [facility] Work Phone: Comment on above: Expected: 12/07/2023, Expires: Start: 11-30-2023 ANNUAL PCP TEAM CHRONIC DISEASE VISIT ANNUAL PCP TEAM CHRONIC DISEASE VISIT [facility] Start: 11-27-2023 ANNUAL PCP TEAM CHRONIC DISEASE VISIT ANNUAL PCP TEAM CHRONIC DISEASE VISIT [facility] Start: 11-04-2023 Behavioral Health Screening Behavioral Health Screening [facility] Start: 11-04-2023 Depression Assessment Depression Assessment [facility] Start: 10-31-2023 BP CONTROLLED (<130/80) BP CONTROLLED (<130/80) [facility] Start: 10-27-2023 [facility] Start: 09-04-2023 ANNUAL PCP TEAM CHRONIC DISEASE VISIT ANNUAL PCP TEAM CHRONIC DISEASE VISIT [facility] Start: 09-04-2023 Hemoglobin A1c measurement HbA1C [facility] Start: 09-04-2023 Hemoglobin A1c/Hemoglobin.total in Blood HBA1C [facility] Start: 09-03-2023 ANNUAL PCP TEAM CHRONIC DISEASE VISIT ANNUAL PCP TEAM CHRONIC DISEASE VISIT [facility] Start: 08-10-2023 Mammography [facility] Start: 08-10-2023 Screening for malignant neoplasm of breast Mammogram Screening [facility] Start: 08-08-2023 Hepatitis B surface antibody level LDL CHOLESTEROL [facility] Start: 08-07-2023 Patient discharge [facility] Start: 08-06-2023 Telepractice consultation [facility] Start: 08-05-2023 End: 08-05-2023 [facility] Start: 08-05-2023 Following clinical pathway protocol [facility] Start: 08-05-2023 Assessment of risk of venous thromboembolism [facility] Start: 08-05-2023 Cardiac monitoring [facility] Start: 08-05-2023 Catheterization of vein [facility] Start: 08-05-2023 Continuous pulse oximetry [facility] Start: 08-05-2023 Elevation of head of bed [facility] Start: 08-05-2023 Exercises [facility] Start: 08-05-2023 Implementation of planned interventions [facility] Start: 08-05-2023 Insertion of catheter into peripheral vein [facility] Start: 08-05-2023 Measuring intake and output [facility] Start: 08-05-2023 Notification of physician [facility] Start: 08-05-2023 Oxygen therapy [facility] Start: 08-05-2023 Providing care according to standard [facility] Start: 08-05-2023 Referral to occupational therapist [facility] Start: 08-05-2023 Referral to service [facility] Start: 08-05-2023 Tobacco use cessation education [facility] Start: 08-05-2023 Vital signs measurements [facility] Start: 08-05-2023 Verification routine [facility] Start: 08-05-2023 Admission procedure [facility] Start: 08-05-2023 Oxygen therapy [facility] Start: 08-05-2023 [facility] Start: 08-05-2023 Inhalation therapy procedure [facility] Start: 08-05-2023 Patient referral to dietitian [facility] Start: 08-02-2023 3 comp foot exam completed DIABETIC FOOT EXAM [facility] Start: 08-02-2023 ANNUAL PCP TEAM CHRONIC DISEASE VISIT ANNUAL PCP TEAM CHRONIC DISEASE VISIT [facility] Start: 08-02-2023 Diabetic foot examination Diabetic Foot Exam [facility] Start: 07-05-2023 Covid-19 Vaccine ( season) Covid-19 Vaccine ( season) [facility] Start: 07-05-2023 Influenza vaccination [facility] Start: 06-07-2023 End: 08-07-2023 Cobalamin (Vitamin B12) [Mass/volume] in Serum or Plasma VITAMIN B12 BLOOD Lab Routine Memory loss Attention and concentration deficit Expected: 06/07/2023, Expires: 08/07/2023 [facility] Work Phone: Comment on above: Expected: 06/07/2023, Expires: Start: 06-07-2023 End: 08-07-2023 Thyrotropin [Units/volume] in Serum or Plasma TSH BLD Lab Routine Memory loss Attention and concentration deficit Expected: 06/07/2023, Expires: 08/07/2023 [facility] Work Phone: Comment on above: Expected: 06/07/2023, Expires: Start: 06-07-2023 End: 08-07-2023 Thyroxine (T4) free [Mass/volume] in Serum or Plasma T4 FREE/FREE THYROX Lab Routine Memory loss Attention and concentration deficit Expected: 06/07/2023, Expires: 08/07/2023 [facility] Work Phone: Comment on above: Expected: 06/07/2023, Expires: Start: 06-01-2023 Urine microalbumin profile [facility] Start: 05-01-2023 ANNUAL PCP TEAM CHRONIC DISEASE VISIT ANNUAL PCP TEAM CHRONIC DISEASE VISIT [facility] Start: 04-02-2023 [facility] Start: 03-29-2023 Adult depression screening assessment DEPRESSION SCREENING [facility] Start: 02-28-2023 End: 04-30-2023 ALBUMIN/CREAT RATIO RND UR ALBUMIN/CREAT RATIO RND UR Lab Routine Type 2 diabetes mellitus with microalbuminuria, with long-term current use of insulin (HCC) Expected: 02/28/2023, Expires: 04/30/2023 [facility] Work Phone: Comment on above: Expected: 02/28/2023, Expires: 3 Start: 02-28-2023 ANNUAL PCP TEAM CHRONIC DISEASE VISIT ANNUAL PCP TEAM CHRONIC DISEASE VISIT [facility] Start: 02-28-2023 End: 04-30-2023 Basic metabolic 2000 panel - Serum or Plasma BASIC METABOLIC PNL Lab Routine Myalgia Expected: 02/28/2023, Expires: 04/30/2023 [facility] Work Phone: Comment on above: Expected: 02/28/2023, Expires: 3 Start: 02-28-2023 End: 04-30-2023 CBC W Auto Differential panel - Blood CBC + DIFF Lab Routine Myalgia Expected: 02/28/2023, Expires: 04/30/2023 [facility] Work Phone: Comment on above: Expected: 02/28/2023, Expires: 3 Start: 02-28-2023 End: 04-30-2023 Hemoglobin A1c in Blood HGB A1C Lab Routine Type 2 diabetes mellitus with microalbuminuria, with long-term current use of insulin (HCC) Expected: 02/28/2023, Expires: 04/30/2023 [facility] Work Phone: Comment on above: Expected: 02/28/2023, Expires: 3 Start: 02-28-2023 End: 04-30-2023 Iron and Iron binding capacity panel - Serum or Plasma IRON + TIBC Lab Routine Myalgia Expected: 02/28/2023, Expires: 04/30/2023 [facility] Work Phone: Comment on above: Expected: 02/28/2023, Expires: 3 Start: 02-28-2023 End: 04-30-2023 Magnesium [Mass/volume] in Serum or Plasma MAGNESIUM BLD Lab Routine Myalgia Expected: 02/28/2023, Expires: 04/30/2023 [facility] Work Phone: Comment on above: Expected: 02/28/2023, Expires: 3 Start: 02-07-2023 Hepatitis B screening URINE ALBUMIN:CREATININE RATIO [facility] Start: 02-07-2023 Hepatitis B surface antibody level LDL CHOLESTEROL [facility] Start: 02-06-2023 Hemoglobin A1c/Hemoglobin.total in Blood HBA1C [facility] Start: 01-25-2023 ANNUAL PCP TEAM CHRONIC DISEASE VISIT ANNUAL PCP TEAM CHRONIC DISEASE VISIT [facility] Start: 11-04-2022 DEPRESSION ASSESSMENT DEPRESSION ASSESSMENT [facility] Start: 10-16-2022 End: 12-16-2022 Thyrotropin [Units/volume] in Serum or Plasma TSH BLD Lab Routine Lightheadedness Expected: 10/16/2022, Expires: 12/16/2022 [facility] Work Phone: Comment on above: Expected: 10/16/2022, Expires: 3 Start: 10-06-2022 Adult depression screening assessment DEPRESSION SCREENING [facility] Start: 10-05-2022 Glaucoma screening Dilated Retinal Exam [facility] Start: 10-05-2022 Hepatitis C antibody, confirmatory test DILATED RETINAL EXAM [facility] Start: 09-04-2022 End: 11-04-2022 Basic metabolic 2000 panel - Serum or Plasma BASIC METABOLIC PNL Lab Routine Lightheadedness Expected: 09/04/2022, Expires: 11/04/2022 [facility] Work Phone: Comment on above: Expected: 09/04/2022, Expires: 3 Start: 09-04-2022 End: 11-04-2022 CBC W Auto Differential panel - Blood CBC + DIFF Lab Routine Lightheadedness Expected: 09/04/2022, Expires: 11/04/2022 [facility] Work Phone: Comment on above: Expected: 09/04/2022, Expires: 3 Start: 08-16-2022 Patient referral [facility] Work Phone: Start: 08-09-2022 Hemoglobin A1c/Hemoglobin.total in Blood HBA1C [facility] Start: 08-02-2022 End: 10-02-2022 Hemoglobin A1c in Blood HGB A1C Lab Routine Type 2 diabetes mellitus with microalbuminuria, with long-term current use of insulin (HCC) Expected: 08/02/2022, Expires: 10/02/2022 [facility] Work Phone: Comment on above: Expected: 08/02/2022, Expires: 2 Start: 08-02-2022 End: 10-02-2022 Lipid 1996 panel - Serum or Plasma LIPID PANEL BASIC Lab Routine Type 2 diabetes mellitus with microalbuminuria, with long-term current use of insulin (HCC) Expected: 08/02/2022, Expires: 10/02/2022 [facility] Work Phone: Comment on above: Expected: 08/02/2022, Expires: 2 Start: 08-02-2022 End: 10-02-2022 Thyrotropin [Units/volume] in Serum or Plasma TSH BLD Lab Routine Fatigue, unspecified type Expected: 08/02/2022, Expires: 10/02/2022 [facility] Work Phone: Comment on above: Expected: 08/02/2022, Expires: 2 Start: 07-20-2022 3 comp foot exam completed DIABETIC FOOT EXAM [facility] Start: 07-05-2022 Influenza vaccination INFLUENZA (#1) [facility] Start: 06-28-2022 Hepatitis B surface antibody level LDL CHOLESTEROL [facility] Start: 2022 Mammography MAMMOGRAM [facility] Start: 06-05-2022 End: 08-05-2022 Bacteria identified in Urine by Culture URINE CULTURE Microbiology Routine Proteinuria, unspecified type Leukocytosis, unspecified type Expected: 06/05/2022, Expires: 08/05/2022 [facility] Work Phone: Comment on above: Expected: 06/05/2022, Expires: 2 Start: 06-05-2022 End: 08-05-2022 Urinalysis complete panel - Urine URINALYSIS, WITH MICROSCOPIC Lab Routine Proteinuria, unspecified type Leukocytosis, unspecified type Expected: 06/05/2022, Expires: 08/05/2022 [facility] Work Phone: Comment on above: Expected: [...] Medication overuse headache Expected: 04/09/2022, Expires: 06/09/2022 [facility] Work Phone: Comment on above: Expected: [...] Medication overuse headache Expected: 04/09/2022, Expires: 06/09/2022 [facility] Work Phone: Comment on above: Expected: 04/09/2022, Expires: 2 Start: 12-26-2021 Patient referral [facility] Work Phone: Start: 12-13-2021 COVID-19 VACCINE (4 - Booster for Moderna series) COVID-19 VACCINE (4 - Booster for Moderna series) [facility] Start: 12-13-2021 COVID-19 VACCINE (4 - Moderna series) COVID-19 VACCINE (4 - Moderna series) [facility] Start: 11-04-2021 DEPRESSION ASSESSMENT DEPRESSION ASSESSMENT [facility] Start: 08-11-2021 Hepatitis B screening URINE ALBUMIN:CREATININE RATIO [facility] Start: 07-15-2021 Hemoglobin A1c/Hemoglobin.total in Blood HBA1C [facility] Start: 07-28-2020 PNEUMOCOCCAL (2 - PCV) PNEUMOCOCCAL (2 - PCV) [facility] Start: 07-28-2020 Pneumococcal vaccination Pneumococcal Vaccine (2 of 2 - PCV) [facility] Start: 09-24-2017 End: 09-24-2017 Appointment Appointment [facility] Work Phone: Start: 09-23-2017 End: 09-23-2017 Appointment Appointment [facility] Work Phone: Start: 09-17-2017 End: 09-17-2017 Appointment Appointment [facility] Work Phone: Start: 09-16-2017 End: 09-16-2017 Appointment Appointment [facility] Work Phone: Start: 09-12-2017 End: 09-12-2017 Appointment Appointment [facility] Work Phone: Start: 09-10-2017 End: 09-10-2017 Appointment Appointment [facility] Work Phone: Start: 09-09-2017 End: 09-09-2017 Appointment Appointment [facility] Work Phone: Start: 09-05-2017 End: 09-05-2017 Appointment Appointment [facility] Work Phone: Start: 09-05-2017 End: 09-05-2017 Follow up Appt 2x/week Follow up Appt 2x/week [facility] Work Phone: Start: 09-03-2017 End: 09-05-2017 [...] up Appt 3x/week Follow up Appt 3x/week [facility] Work Phone: Start: 08-08-2017 End: 08-08-2017 Follow up Appt 3x/week Follow up Appt 3x/week [facility] Medical [facility] Work Phone: Start: 08-06-2017 End: 08-06-2017 Follow up Appt 3x/week Follow up Appt 3x/week [facility] Medical [facility] Work Phone: Start: 07-02-2017 End: 07-02-2017 Mri spinal canal lumbar w/o contrast material MRI Lumbar Spine [facility] Work Phone: Start: 06-06-2017 End: 06-06-2017 Mri spinal canal lumbar w/o contrast material MRI Lumbar Spine [facility] Work Phone: Start: 05-10-2017 End: 05-10-2017 Radex spine lumbosacral minimum 4 views X-Ray, Spine, Lumbosacral 2-3 views [facility] Work Phone: Start: 05-09-2017 End: 05-09-2017 Physical Therapy General [facility], [address] [place] [address], [id number] [facility] Work Phone: Start: 2001 HEPATITIS B (1 of 3 - Risk 3-dose series) HEPATITIS B (1 of 3 - Risk 3-dose series) [facility] Start: 2000 BP CONTROLLED (<130/80) BP CONTROLLED (<130/80) [facility] Start: 2000 Depression Screening Depression Screening [facility] Start: 1982 HEPATITIS B (1 of 3 - 3-dose series) HEPATITIS B (1 of 3 - 3-dose series) [facility] Chiropractic manipulation [facility] End: 03-29-2024 Ct soft tissue neck w/contrast material CT NECK SOFT TISSUE W IVCON Radiology Routine Soft tissue mass 1 Occurrences starting 02/28/2023 until 03/29/2024 [facility] Work Phone: Comment on above: 1 Occurrences starting 02/28/2023 until 03/29/2024 End: 12-17-2025 DBT Breast - bilateral screening FLASH SCREENING W JAQUELIN Radiology Routine Encounter for screening mammogram for breast cancer 1 Occurrences starting 11/17/2024 until 12/17/2025 [facility] Work Phone: Comment on above: 1 Occurrences starting 11/17/2024 until 12/17/2025 End: 07-07-2026 DBT Breast - bilateral screening FLASH SCREENING W [facility]IN Radiology Routine Encounter for screening mammogram for breast cancer 1 Occurrences starting 06/07/2025 until 07/07/2026 [facility] Comment on above: 1 Occurrences starting 06/07/2025 until 07/07/2026 End: 09-04-2023 ECG COMPLETE ECG COMPLETE ECG Routine Prolonged Q-T interval on ECG 1 Occurrences starting 09/04/2022 until 09/04/2023 [facility] Work Phone: Comment on above: 1 Occurrences starting 09/04/2022 until 09/04/2023 End: 03-05-2024 EPIL EEG ROUTINE EPIL EEG ROUTINE NEUROLOGY Routine Altered awareness, transient 1 Occurrences starting 03/05/2023 until 03/05/2024 [facility] Work Phone: Comment on above: 1 Occurrences starting 03/05/2023 until 03/05/2024 Hemoglobin A1c/Hemoglobin.total in Blood [facility] Injection aa&/strd suprascapular nerve INJECT NERV BLCK,SUPRASCAP N. Procedures Routine Adhesive capsulitis of left shoulder Primary osteoarthritis of left shoulder Ordered: 05/10/2022 [facility] Work Phone: Comment on above: Ordered: 05/10/2022 Magnesium [Mass/volu me] in Serum or Plasma [facility] Work Phone: End: 07-05-2024 FLASH SCREENING FLASH SCREENING Radiology Routine Encounter for screening mammogram for malignant neoplasm of breast 1 Occurrences starting 06/06/2023 until 07/05/2024 [facility] Work Phone: Comment on above: 1 Occurrences starting 06/06/2023 until 07/05/2024 End: 01-07-2025 FLASH SCREENING W JAQUELIN FLASH SCREENING W JAQUELIN Radiology Routine Encounter for screening mammogram for malignant neoplasm of breast 1 Occurrences starting 12/09/2023 until 01/07/2025 [facility] Work Phone: Comment on above: 1 Occurrences starting 12/09/2023 until 01/07/2025 MR Lower Extremity Joint [facility] End: 01-06-2024 Mri brain brain stem w/o contrast material MRI BRAIN WO IVCON Radiology Routine Post concussion syndrome Intractable acute post-traumatic headache Dizziness Cervicalgia 1 Occurrences starting 12/07/2022 until 01/06/2024 [facility] Work Phone: Comment on above: 1 Occurrences starting 12/07/2022 until 01/06/2024 End: 01-06-2024 Mri spinal canal cervical w/o contrast matrl MRI CERVICAL SPINE WO IVCON Radiology Routine Post concussion syndrome Intractable acute post-traumatic headache Dizziness Cervicalgia 1 Occurrences starting 12/07/2022 until 01/06/2024 [facility] Work Phone: Comment on above: 1 Occurrences starting 12/07/2022 until 01/06/2024 Patient Education [facility] Work Phone: Patient referral [facility] Work Phone: End: 03-01-2024 US HEAD/NECK SOFT TISSUE OTHER US HEAD/NECK SOFT TISSUE OTHER Radiology Routine Soft tissue mass 1 Occurrences starting 01/31/2023 until 03/01/2024 [facility] Work Phone: Comment on above: 1 Occurrences starting 01/31/2023 until 03/01/2024 US Heart [facility] Work Phone: End: 08-20-2025 XR Chest PA and Lateral XR CHEST 2V FRONTAL/LAT Radiology Routine Cough, unspecified type 1 Occurrences starting 07/21/2024 until 08/20/2025 [facility] Work Phone: Comment on above: 1 Occurrences starting 07/21/2024 until 08/20/2025 End: 01-10-2026 XR Chest PA and Lateral XR CHEST 2V FRONTAL/LAT Radiology STAT Sinobronchitis 1 Occurrences starting 12/11/2024 until 01/10/2026 [facility] Work Phone: Comment on above: 1 Occurrences starting 12/11/2024 until 01/10/2026 End: 05-31-2023 XR RIBS/CHEST 3V AP RIB/OBLS/CXR LEFT XR RIBS/CHEST 3V AP RIB/OBLS/CXR LEFT Radiology Routine Rib pain 1 Occurrences starting 05/01/2022 until 05/31/2023 [facility] Work Phone: Comment on above: 1 Occurrences starting 05/01/2022 until 05/31/2023 [facility] Immunizations Immunization Date Immunization Notes Care Provider [facility] 09-08-2024 influenza, seasonal, injectable, preservative free Dr. Ivette Grimes MD Work Phone: [facility] 09-08-2024 influenza virus vacc ine, unspecified formulation Ivette Grimes MD Work Phone: [facility] 09-23-2023 influenza virus vacc ine, unspecified formulation Ivette Grimes MD Work Phone: [facility] 09-19-2023 influenza, injectabl e, quadrivalent, preservative free Self Referred [facility] 08-06-2022 influenza, injectabl e, quadrivalent, preservative free Dr. Ivette Grimes Work Phone: [facility] 08-06-2022 influenza, seasonal, injectable Ivette Grimes MD Work Phone: [facility] 08-06-2022 influenza virus vacc ine, unspecified formulation Ivette Grimes MD Work Phone: [facility] 10-18-2021 Covid (Moderna) Dr. Ivette Grimes Work Phone: [facility] 08-01-2021 influenza virus vacc ine, unspecified formulation Elle Sanchez MD Work Phone: [facility] 08-01-2021 influenza, injectabl e, quadrivalent, preservative free Dr. Ivette Grimes Work Phone: [facility] 08-01-2021 influenza, seasonal, injectable Dr. Ivette Grimes Work Phone: [facility] 08-01-2021 influenza, seasonal, injectable, preservative free Ivette Grimes MD Work Phone: [facility] 11-29-2020 COVID-19 vaccine, fu ll dose (MODERNA) Elle Sanchez MD Work Phone: [facility] 11-01-2020 Covid (Moderna) Dr. Ivette Grimes Work Phone: [facility] 10-31-2020 COVID-19 vaccine, fu ll dose (MODERNA) Elle Sanchez MD Work Phone: [facility] 08-02-2020 influenza, injectabl e, quadrivalent, preservative free Dr. Ivette Grimes Work Phone: [facility] 08-02-2020 influenza, seasonal, injectable Dr. Ivette Grimes Work Phone: [facility] 08-02-2020 influenza, seasonal, injectable, preservative free Ivette Grimes MD Work Phone: [facility] 08-01-2020 influenza virus vacc ine, unspecified formulation Elle Sanchez MD Work Phone: [facility] 07-30-2019 influenza, injectabl e, quadrivalent, contains preservative Ivette Grimes MD Work Phone: [facility] 07-30-2019 influenza, injectabl e, quadrivalent, preservative free Dr. Ivette Grimes Work Phone: [facility] 07-30-2019 influenza, seasonal, injectable Dr. Ivette Grimes Work Phone: [facility] 07-28-2019 pneumococcal polysaccharide vaccine, 23 valent Elle Sanchez MD Work Phone: [facility] 08-01-2018 influenza, injectabl e, quadrivalent, preservative free Dr. Ivette Grimes Work Phone: [facility] 08-01-2018 influenza, seasonal, injectable Dr. Ivette Grimes Work Phone: [facility] 08-07-2017 influenza, seasonal, injectable Elle Sanchez MD Work Phone: [facility] 07-31-2017 influenza, injectabl e, quadrivalent, preservative free Dr. Ivette Grimes Work Phone: [facility] 07-31-2017 influenza, seasonal, injectable Dr. Ivette Grimes Work Phone: [facility] 08-02-2016 influenza, injectabl e, quadrivalent, preservative free Dr. Ivette Grimes Work Phone: [facility] 08-02-2016 influenza, seasonal, injectable Dr. Ivette Grimes Work Phone: [facility] 07-09-2016 influenza, injectabl e, quadrivalent, contains preservative Elle Sanchez MD Work Phone: [facility] 03-05-2016 hepatitis B vaccine, pediatric or pediatric/adolescent dosage Elle Sanchez MD Work Phone: [facility] 03-05-2016 hepatitis B vaccine, unspecified formulation Elle Sanchez MD Work Phone: [facility] 07-25-2015 influenza, injectabl e, quadrivalent, contains preservative Ivette Grimes MD Work Phone: [facility] 07-25-2015 influenza, injectabl e, quadrivalent, preservative free Dr. Ivette Grimes Work Phone: [facility] 07-25-2015 influenza, seasonal, injectable Dr. Ivette Grimes Work Phone: [facility] 07-25-2015 varicella virus vaccine Cathy Sanchez MD Work Phone: [facility] 06-06-2015 hepatitis B vaccine, pediatric or pediatric/adolescent dosage Elle Sanchez MD Work Phone: [facility] 05-05-2015 hepatitis B vaccine, pediatric or pediatric/adolescent dosage Elle Sanchez MD Work Phone: [facility] 06-01-2013 tetanus toxoid, redu jamila diphtheria toxoid, and acellular pertussis vaccine, adsorbed Elle Sanchez MD Work Phone: [facility] 02-22-2009 human papilloma viru s vaccine, quadrivalent Elle Sanchez MD Work Phone: [facility] Work Phone: 09-27-2008 human papilloma viru s vaccine, quadrivalent Elle Sanchez MD Work Phone: [facility] Work Phone: 07-20-2008 human papilloma viru s vaccine, quadrivalent Elle Sanchez MD Work Phone: [facility] Work Phone: Payers Date Payer Category Payer Unknown [id number] 2024 Self-pay [id number] [phone] [id number] 2022 Government (not [facility] care or Medicaid) [facility] [id number] 2022 Private Health Insurance [id number] 2022 Unknown [id number] 2020 Unknown [id number] 2019 Unknown [id number] 2015 Unknown [id number] Unknown [id number] Unknown [id number] Unknown [id number] Unknown [id number] Unknown [id number] Unknown [id number] 2.16.840.1.245943.3.579.2. 462 Unknown [id number] 2.16.840.1.266219.3.579.2. 462 Unknown [id number] 2.16.840.1.745525.3.579.2. 462 Unknown [id number] 2.840.1.210909.3.579.2. 462 Unknown [id number] 2.840.1.869166.3.579.2. 462 Unknown [id number] 2.840.1.802735.3.579.2. 462 Unknown [id number] .840.1.802195.3.579.2. 462 Unknown [id number] 2.840.1.481854.3.579.2. 462 Unknown [id number] .840.1.061191.3.579.2. 462 Unknown [id number] 2.840.1.058892.3.579.2. 462 Unknown [id number] 2.840.1.189458.3.579.2. 462 Unknown [id number] .840.1.486542.3.579.2. 462 Unknown [id number] .840.1.375023.3.579.2. 462 Unknown [id number] .840.1.181685.3.579.2. 462 Unknown [id number] .840.1.890731.3.579.2. 462 Unknown [id number] 840.1.325345.3.579.2. 462 Unknown [id number] .840.1.817961.3.579.2. 462 Unknown [id number] .840.1.127924.3.579.2. 462 Unknown [id number] 2.840.1.325612.3.579.2. 462 Unknown [id number] 2.840.1.473188.3.579.2. 462 Unknown [id number] 2.840.1.263575.3.579.2. 462 Unknown [id number] .840.1.588253.3.579.2. 462 Unknown [id number] 2.16.840.1.853399.3.579.2. 462 Unknown [id number] 2.16.840.1.353612.3.579.2. 462 Social History Date Type Detail Facility Start: 03-14-2011 End: 07-19-2022 Tobacco smoking status NHIS Never smoked tobacco [facility] Start: 01-25-2022 End: 06-07-2025 Alcohol intake Current non-drinker of alcohol (finding) [facility] Start: 09-13-2020 End: 11-01-2022 History SDOH Alcohol Frequency 1 [facility] Start: 03-09-2020 History SDOH Social Connections Phone 5 [facility] Start: 03-09-2020 End: 11-01-2022 History SDOH Social Connections Get Together 2 [facility] Start: 03-09-2020 End: 11-01-2022 History SDOH Social Connections Mosque 3 [facility] Start: 03-09-2020 End: 11-01-2022 History SDOH Social Connections Living 7 [facility] Start: 09-13-2020 End: 11-01-2022 History SDOH Financial 4 [facility] Start: 08-15-2020 Education 16 [facility] Start: 1980 Sex Assigned At Female C [facility] Start: 01-19-2022 End: 01-22-2023 Exposure to SARS-CoV-2 (event) Not sure [facility] Start: 02-06-2022 End: 02-04-2024 Tobacco smoking status NHIS Unknown if ever smoked [facility] Start: 05-15-2020 None [facility] Start: 05-15-2020 Alone [facility] Start: 05-05-2020 Non-smoker [facility] Start: 03-14-2011 End: 07-19-2022 Tobacco use and exposure Smokeless tobacco non-user [facility] Work Phone: Start: 11-01-2022 History SDOH Alcohol Std Drinks 0 [facility] Start: 11-01-2022 End: 05-17-2023 History of Social function [facility] Start: 11-01-2022 End: 05-17-2023 Social connection and isolation panel [facility] Do you belong to any clubs or organizations such as restorationist groups, [employer], [employer] or athletic groups, or school groups? No [facility] Are you now , , , , never or living with a partner? Never [facility] How often to you hav e a drink containing alcohol? Never [facility] How many standard drinks containing alcohol do you have on a typical day? Patient does not drink [facility] How hard is it for y ou to pay for the very basics like food, housing, medical care, and heating Not very hard [facility] Do you feel stress - tense, restless, nervous, or anxious, or unable to sleep at night because your mind is troubled all the time - these days [OSQ] Only a little [facility] (I/We) worried tye er (my/our) food would run out before (I/we) got money to buy more. Never true [facility] Start: 05-27-2020 Gender identity Identifies as female gender (finding) [facility] Start: 05-27-2020 Sexual orientation Heterosexual (jesu holder) [facility] Do you belong to any clubs or organizations such as restorationist groups, [employer], [employer] or athleReelation groups, or school groups? Yes [facility] Start: 02-02-2025 Sex Female (finding) [facility] NEGATED: Highlighted row [facility] Medical Equipment Procedure Code Equipment Code Equipment Origin al Text Equipment Identifier Dates [id number], [id number] Start: 07-22-2018 Comment on above: Test blood [...] score [AUDIT-C] 0 12/11/19 10:02 AM EST UserShankar [facility] 12-11-2024 Within the last year , have you been humiliated or emotionally abused in other ways by your partner or ex-partner? No 12/11/2024 10:02 AM EST UserShankar [facility] 12-11-2024 Within the last year , have you been afraid of your partner or ex-partner? No 12/11/2024 10:02 AM EST UserFernt No [facility] 12-11-2024 Within the last year , have you been raped or forced to have any kind of sexual activity by your partner or ex-partner? No 12/11/2024 10:02 AM EST UserFernt No [facility] 12-11-2024 Within the last year , have you been kicked, hit, slapped, or otherwise physically hurt by your partner or ex-partner? No 12/11/2024 10:02 AM EST User, Katehart No [facility] 12-11-2024 How often to you hav e a drink containing alcohol? Never 12/11/2024 10:02 AM EST User, Mychart Never [facility] 12-11-2024 Functional status Patient does n ot drink 12/11/2024 10:02 AM EST User, Katehart Patient does not drink [facility] 12-11-2024 How often do you hav e 6 or more drinks on 1 occasion? Never 12/11/2024 10:02 AM EST User, Katehart Never [facility] 08-07-2023 Functional status Chair [facility] Work Phone: 10-22-2014 Are you deaf, or do you have serious difficulty hearing No 10/22/2014 10:49 AM Ashanti Mejia Ma No [facility] 10-22-2014 Are you blind, or do you have serious difficulty seeing, even when wearing glasses No 10/22/2014 10:49 AM Ashanti Mejia Ma No [facility] 10-22-2014 Do you have serious difficulty walking or climbing stairs No 10/22/2014 10:49 AM Ashanti Mejia Ma No [facility] 10-22-2014 Do you have difficul ty dressing or bathing No 10/22/2014 10:49 AM Ashanti Mejia Ma No [facility] 10-22-2014 Because of a physica l, mental, or emotional condition, do you have difficulty doing errands alone such as visiting a physician's office or shopping No 10/22/2014 10:49 AM Ashanti Mejia Ma [facility] Mental Status Date Assessment Result Facility 11-11-2024 Cognitive function Voice/Name [facility] Work Phone: 02-04-2024 Cognitive function Level Of Cons ciousness Awake;Alert;Appropriate [facility] Work Phone: 08-07-2023 Cognitive function Voice/Name [facility] Work Phone: 08-05-2023 Cognitive function Level Of Cons ciousness Awake;Alert;Appropriate;Fol lows Commands [facility] Work Phone: 05-20-2023 Cognitive function Level Of Cons ciousness Awake;Alert;Appropriate [facility] Work Phone: 12-03-2022 Cognitive function Level Of Cons ciousness Awake;Alert;Appropriate;Fol lows Commands [facility] Work Phone: 11-27-2022 Cognitive function Level Of Cons ciousness Awake;Alert;Appropriate [facility] Work Phone: 10-22-2014 Because of a physica l, mental, or emotional condition, do you have serious difficulty concentrating, remembering, or making decisions No 10/22/2014 10:49 AM AKILA Hargroves Ashanti Ramirez [facility] Clinical Notes 12-06-2012 to 06-07-2025 Ivette Grimes MD - 06/07/2025 7:05 PM EDTPatient InstructionsTelephone Encounter - Ivette Grimes MD - 04/07/2025 3:34 PM EDTTelephone Encounter - Ivette Grimes MD - 04/07/2025 3:34 PM EDT Note Date & Type Note Facility 06-07-2025 History of Presen t illness Narrative Tori Gray is a 44-year-old female with a history of type 2 diabetes mellitus, anxiety, depression, migraines, and LETITIA, presenting for an annual wellness visit, with additional concerns about elevated blood glucose levels. HPI Annual Wellness Exam: - Last A1c was 6.6% six months ago. - Recent labs showed glucose 210 mg/dL, uric acid 6.9 mg/dL, phosphorus borderline low, ALT 43 U/L, cholesterol 187 mg/dL, triglycerides 310 mg/dL, HDL 33 mg/dL. - Denies urinary symptoms. - Denies cough, wheeze, or dyspnea. - Uses BiPAP regularly. - Upcoming shoulder surgery scheduled for June [address] Quiroga at [facility]. - Follow-up appointment with Dr. Camacho for Pap smear on July 08; mammogram overdue. - Recent eye exam in October. - No concerns about current medications. Type 2 Diabetes Mellitus: - Reports consistently high fasting blood glucose levels, with one reading as high as 280 mg/dL. - Average blood glucose levels around 150 mg/dL. - Denies hypoglycemic episodes. - Adheres to a diet including a protein shake in the morning, a large salad for lunch, and dinner around 18:00-18:30, with occasional snacks like carrots and granola bars. - Engages in regular exercise at the gym. - Currently taking Ozempic. Anxiety and Depression: - Currently taking fluoxetine. - Reports well-controlled anxiety and depression, considering discontinuing fluoxetine. - Has not had a recent appointment with psychiatrist. Migraines: - Currently taking Topamax and gabapentin once daily at night. - Reports improvement in migraines. - Has an upcoming appointment for Botox treatment on August 04. LETITIA: - Uses BiPAP regularly. MEDICATIONS: Current Outpatient Medications Medication Sig semaglutide (OZEMPIC) 1 mg/dose (4 mg/3 mL) pen Inject 1 mg subcutaneously one time a week. topiramate (TOPAMAX) 100 mg tablet Take 1 tablet by mouth two times a day. albuterol HFA (VENTOLIN HFA) 90 mcg/actuation inhaler [...] 1 tablet by mouth once daily. Ipratropium [place] (ATROVENT) 21 mcg (0.03 %) nasal spray [...] 1 Each by INTRAUTERINE route as directed. Wwpdmlsa-Ns-Piq-Fe-FA tab Take 1 tablet by mouth once daily. FLUoxetine (PROZAC) 20 mg capsule Take 1 capsule by mouth once daily. tiZANidine (ZANAFLEX) 4 mg tablet Take 1 tablet by mouth every 8 hours as needed (muscle spasms). gabapentin (NEURONTIN) 300 mg capsule Take 1 capsule by mouth once daily for 180 days. blood sugar diagnostic (BLOOD GLUCOSE TEST) test strip Test blood sugar(s) 1 times daily. Dx: Type 2 DM - Controlled E11.9 Insulin: Yes Lancets lancets Test blood sugar(s) 1 times daily. Dx: Type 2 DM - Controlled E11.9 Insulin: No No current facility-administered medications for this visit. [...] Age of Onset Alcohol/Drug Mother Heart Father IA Cancer Father PANCREATIC CANCER Diabetes Father Coronary [...] and social history today. REVIEW OF SYSTEMS Respiratory: (-) cough, (-) wheezing, (-) shortness of breath Genitourinary: (+) vaginal spotting, (-) urinary symptoms, (-) dysuria, (-) urinary frequency Musculoskeletal: (+) left-sided pain Neurological: (-) headaches Psychiatric: (-) anxiety Endocrine: (-) hypoglycemic episodes HEALTH MAINTENANCE: Reviewed health maintenance issues today and recommended the following in detail. Mammogram Screening due on 08/10/2023 Cervical Cancer Screening due on 12/18/2023 Urine Albumin:Creatinine Ratio due on 07/04/2025 LDL Cholesterol due on 07/04/2025 LAB REVIEWED: Labs: (06/05) - Glucose: 210 mg/dL - Uric acid: 6.9 mg/dL - Phosphorus: borderline low - ALT: 43 U/L - Cholesterol: 187 mg/dL - Triglycerides: 310 mg/dL - Electrolytes: normal - HDL: 33 mg/dL (low) - CBC: within normal limits - Urinalysis: - RBC: present - WBC: present - Protein: trace A1c: 6.6 Imaging: - MRI (Shoulder): Fluid and bursitis detected VITALS: BP 132/80 Pulse 78 Wt 128.2 kg (282 lb 9.6 oz) LMP (LMP Unknown) SpO2 98% BMI 44.26 kg/m Last 4 Encounter Wt Readings: Date: Wt: 06/07/2025 128.2 kg (282 lb 9.6 oz) 01/22/2025 127.9 kg (282 lb) 12/11/2024 125.7 kg (277 lb 1.9 oz) 09/03/2024 126.9 kg (279 lb 10.5 oz) PHYSICAL EXAMINATION: GENERAL: NAD, alert and oriented. SKIN: Unremarkable, no rash or skin lesions. HEAD: Normocephalic. EYES: PERRLA, EOMI, conjunctiva clear. EARS: External ears normal, canals clear, TM's normal. NOSE/SINUSES: Nares normal. Septum midline. OROPHARYNX: Lips, mucosa, and tongue normal, good dentition. No oral lesions noted. NECK: Supple, no lymphadenopathy, normal thyroid, no carotid bruits. LUNGS: Clear to auscultation bilaterally, no wheezes/rhonchi/rales. HEART: Regular rate and rhythm, no murmurs. No ectopy. EXTREMITIES: Normal, no deformities, no skin discoloration, no edema. NEURO: Awake, alert and oriented x3, cranial nerves II-XII grossly intact, normal gait, no involuntary motions. ASSESSMENT AND PLAN 1. Well adult exam (Z00.00) - Reviewed recent labs: glucose 210, uric acid 6.9, phosphorus borderline low, ALT 43, cholesterol 187, triglycerides 310, HDL 33. - Discussed lab results and their implications. - Follow-up in 6 months for routine checkup. 2. Anxiety (F41.9) - Anxiety well-controlled on fluoxetine; patient inquires about discontinuation. - Discussed limited efficacy of PRN anxiolytics; advised continuation of fluoxetine. 3. Flank pain (R10.9) 4. Proteinuria, unspecified type (R80.9) - Left-sided flank pain with recent UA showing blood, WBCs, and protein; likely related to menstrual spotting. - Repeat UA with microscopy in 4 weeks. 5. LETITIA (obstructive sleep apnea) (G47.33) - Continues to use BiPAP as prescribed. 6. Type 2 diabetes mellitus with microalbuminuria, with long-term current use of insulin (HCC) (E11.29) - Fasting glucose remains elevated despite medication adjustments; last A1c 6.6%. - Order A1c to be added to recent labs. - Order LDL direct. - Order urine microalbumin to be done with repeat UA in 4 weeks. - Discussed overnight glucose elevation due to counter-regulatory hormones; emphasized importance of average glucose control. 7. Essential (primary) hypertension (I10) - Blood pressure well-controlled. 8. Nonalcoholic fatty liver (K76.0) - ALT 43, consistent with previous levels; history of fatty liver disease. 9. Obesity, Class III, BMI 40-49.9 (morbid obesity) (HCC) (E66.813) - Patient is physically active and maintains a balanced diet. 10. Headache, unspecified headache type (R51.9) - Migraines well-controlled; continues Topamax and gabapentin (reduced to once nightly). - Appointment scheduled for August 04 with [facility] to discuss resuming Botox treatment. 11. Encounter for screening mammogram for breast cancer (Z12.31) - Order for screening mammogram to be sent to [facility]. (See patient after visit summary for additional instructions to patient) Ivette Grimes MD Recording using [employer] software for draft documentation of the visit was discussed with the patient/authorized reimbursement representative; all questions welcomed and answered. Patient/authorized reimbursement representative agreed to proceed documented in this encounter [facility] 06-07-2025 Instructions Ivette Grimes MD - 06/07/2025 7:01 PM EDT - Have a hemoglobin A1c (average blood sugar) and direct LDL cholesterol drawn at your employee lab; the order will be faxed--ask them to add a microalbumin check for kidney health. - In 4 weeks, repeat a urinalysis with microscopic exam and microalbumin. - Continue your current medications as prescribed: Ozempic, fluoxetine, Topamax, and gabapentin at night. - Proceed with your shoulder surgery with Dr. Quiroga on June 23 at [facility]. - Keep your neurology appointment on August 04 for Botox treatment of migraines. - Attend your gynecology visit with Dr. Camacho on July 08 for your Pap smear. - Schedule your mammogram at the hospital across the street; the order has been sent there. - Return in 6 months for your routine checkup; contact the office sooner if any new concerns arise. documented in this encounter [facility] 04-07-2025 Telephone encounter Note Requests refill. [facility] 04-07-2025 Miscellaneous Notes Requests refill. documented in this encounter [facility] 04-01-2025 Telephone encounter Note Botox approved until 11/03/25. Patient and scheduling made aware. She is a patient of [facility]uma's but due to her being out on maternity leave, patient will need scheduled with another FÉLIX. Saw Amanda on 03/09/25. Latonia Caraballo RN, BSN [facility] Work Phone: 04-01-2025 Miscellaneous Notes Botox approved until 11/03/25. Patient and scheduling made aware. She is a patient of [facility]uma's but due to her being out on maternity leave, patient will need scheduled with another FÉLIX. Saw Amanda on 03/09/25. Latonia Caraballo RN, BSN documented in this encounter [facility] 03-19-2025 Telephone encounter Note Botox referral sent to pharmacy as patient would like to restart botox. Last botox 09/03/24. Latonia Caraballo RN, BSN [facility] Work Phone: 03-19-2025 Miscellaneous Notes Botox referral sent to pharmacy as patient would like to restart botox. Last botox 09/03/24. Latonia Caraballo RN, BSN documented in this encounter [facility] 03-12-2025 Radiology Diagnostic study note [facility] Imaging Services [address] [place] [id number] Shoulder min 2 Views MR#: [id number] Acct: [id number] Name: TORI GRAY Rep #: [id number] : 1980 F 44 From: Kaushik Newsome MD PCP: Dr. Ivette Grimes MD Status: REG Mireya CURTIS Study:Shoulder min 2 Views Date of Exam: 03/11/25 Exam# [id number] Ordering Dr: Brett Quiroga MD PROCEDURE: SHOULDER MIN 2 VIEWS 03/11/2025 REASON FOR EXAM: PAIN TECHNIQUE: Five views of the left shoulder COMPARISON: Left shoulder x-ray dated 05/03/2021. FINDINGS: The left shoulder is in anatomic alignment. There is no fracture or dislocationseen. No significant osteoarthritis is seen. RAD/Shoulder min 2 Views IMPRESSION: Unremarkable left shoulder series. Reading Location: [facility] CC: Dr. Brett Qiuroga MD; Dr. Ivette Grimes MD ~ Contract Preparer: Signed [facility] 03-09-2025 History of Presen t illness Narrative Images from the original note were not included. [facility] General Neurology New Patient Evaluation This visit [...] visit. Either the patient or their legal reimbursement representative has been informed of the risks and benefits of -- and alternatives to -- treatment through a remote evaluation and consents to proceed with the evaluation remotely. Confirmed verbally that the patient currently located in the [facility].Yes Confirmed verbally that the patient consents to being seen virtually today.Yes Confirmed verbally that the patient consents to being seen by a physician veterinary technician assistant.Yes CHIEF COMPLAINT: Botox for migraines Tori [...] 2. Gets botox for migraines with Karen Bansal CNP. Patient sustained fall and head injury 11/24/22 [...] 1 tablet by mouth once daily. Ipratropium [place] (ATROVENT) 21 mcg (0.03 %) nasal spray [...] 1 Each by INTRAUTERINE route as directed. [place]-3 Fatty Acids (FISH OIL) 500 mg cap Take 1 capsule by mouth once daily. blood sugar diagnostic (BLOOD GLUCOSE TEST) test strip Test blood sugar(s) 1 times daily. Dx: Type 2 DM - Controlled E11.9 Insulin: Yes Lancets lancets Test blood sugar(s) 1 times daily. Dx: Type 2 DM - Controlled E11.9 Insulin: No Vefbssem-Pp-Wzk-Fe-FA tab Take 1 tablet by mouth once [...] at this time, she will follow-up with Fatuma Beckford following this current cycle of Botox. I spent a total of 30 minutes on the date of the service which included preparing to see the patient, [id number] patient care, completing clinical documentation, obtaining and/or [...] study not recommended) documented in this encounter [facility] 03-09-2025 Note HNO ID: [id number] Author: AMANDA ARTEAGA PA-C Service: ? Author Type: Physician Stitch Welder Type: Progress Notes Filed: 03/10/2025 07:59 Note Text: [facility] General Neurology New Patient Evaluation This visit [...] visit. Either the patient or their legal reimbursement representative has been informed of the risks and benefits of -- and alternatives to -- treatment through a remote evaluation and consents to proceed with the evaluation remotely. Confirmed verbally that the patient currently located in the [facility].Yes Confirmed verbally that the patient consents to being seen virtually today.Yes Confirmed verbally that the patient consents to being seen by a physician veterinary technician assistant.Yes CHIEF COMPLAINT: Botox for migraines Tori [...] 2. Gets botox for migraines with Karen [facility]. Patient sustained fall and head injury 11/24/22 [...] as rescue at this time -Mobic 15 a (more content not included)... [facility] 03-04-2025 Telephone encounter Note Tried contacting patient to confirm that she just wants to discuss botox rather than get injections for her upcoming appt as it's a virtual visit, per [place]. Beata Pitts LPN March 04, 2025 2:42 PM [facility] 03-04-2025 Miscellaneous Notes Tried contacting patient to confirm that she just wants to discuss botox rather than get injections for her upcoming appt as it's a virtual visit, per [place]. Beata Pitts LPN March 04, 2025 2:42 PM documented in this encounter [facility] 03-02-2025 History of Presen t illness Narrative [...] visit. Either the patient or their legal reimbursement representative has been informed of the risks [...] like me to send over referral at [facility]. They specialize in shoulders. Seen at optometry at [facility] for dilated vision check on February [...] 1 tablet by mouth once daily. Ipratropium [place] (ATROVENT) 21 mcg (0.03 %) nasal spray [...] 1 Each by INTRAUTERINE route as directed. [place]-3 Fatty Acids (FISH OIL) 500 mg cap Take 1 capsule by mouth once daily. blood sugar diagnostic (BLOOD GLUCOSE TEST) test strip Test blood sugar(s) 1 times daily. Dx: Type 2 DM - Controlled E11.9 Insulin: Yes Lancets lancets Test blood sugar(s) 1 times daily. Dx: Type 2 DM - Controlled E11.9 Insulin: No Chznalxe-Ky-Frj-Fe-FA tab Take 1 tablet by mouth once [...] Age of Onset Alcohol/Drug Mother Heart Father [place] Cancer Father PANCREATIC CANCER Diabetes Father Coronary [...] Ivette Grimes MD documented in this encounter [facility] 03-02-2025 Note HNO ID: [id number] Author: IVETTE GRIMES MD Service: ? Author [...] visit. Either the patient or their legal reimbursement representative has been informed of the risks [...] like me to send over referral at [facility]. They specialize in shoulders. Seen at optometry at [facility] for dilated vision check on February [...] 1 tablet by mouth once daily. Ipratropium [place] (ATROVENT) 21 mcg (0.03 %) nasal spray [...] 1 Each by INTRAUTERINE route as directed. [place]-3 Fatty Acids (FISH OIL) 500 mg cap Take 1 capsule by mouth once daily. blood sugar diagnostic (BLOOD GLUCOSE TEST) test strip Test blood sugar(s) 1 times daily. Dx: Type 2 DM - Controlled E11.9 Insulin: Yes Lancets lancets Test blood sugar(s) 1 times daily. Dx: Type 2 DM - Controlled E11.9 Insulin: No Iwwuibkq-Ob-Tuj-Fe-FA tab Take 1 tablet by mouth once [...] Age of Onset Alcohol/Drug Mother Heart Father [place] Cancer Father PANCREATIC CANCER Diabetes Father Coronary Artery Disease Father Anxiety disorder Sister Depression Sister Depression Brother Cancer Maternal Grandmother LUNG CANCER Diabetes Maternal Grandfather Heart Paternal Grandmother [employer] Social History Tobacco Use Smoking status: Never Smokeless tobacco: Never Vaping Use Vaping status: Never Used Substance Use Topics Alcohol use (more content not included)... [facility] 02-04-2025 Evaluation note Diagnosis Onset Date Resolution [...] lumbar chronic March 09, 2025 9: 17am [facility] Work Phone: 1(756) 507-386704-03-2025 Evaluation note* Diagnosis Onset Date Resolution Status [...] Left shoulder pain inactive March 222024 8:58am [facility] Work Phone: 1([phone]) 908-710104-03-2025 Evaluation note* Diagnosis Onset Date Resolution Status [...] and somatic dysfunction of cervical region acute [facility] 2024 9:33am Segmental and somatic dysfunction of lumbar region acute March 22, 2025 9:33am Segmental and somatic dysfunction of pelvic region acute March 22, 2025 9:33am Segmental and somatic dysfunction of thoracic region acute [facility] 2024 9:33am [facility] Work Phone: 1(455) 154-723904-03-2025 Evaluation note* Diagnosis Onset Date Resolution Status Admit Date Segmental and somatic dysfunction of cervical region acute A pril 2024 2:21pm Segmental and somatic dysfunction of lumbar region acute Feb 2:21pm Segmental and somatic dysfunction of pelvic region acute Feb 2:21pm Segmental and somatic dysfunction of thoracic region acute A pri2024 2:21pm Disc displacement, lumbar chronic February 04, 2025 2:21pm Segmental and somatic dysfunction of cervical region acute [facility] 2024 9:17am Segmental and somatic dysfunction of lumbar region acute March 09, 2025 9:17am Segmental and somatic dysfunction of pelvic region acute March 09, 2025 9:17am Segmental and somatic dysfunction of thoracic region acute [facility] 2024 9:17am Disc displacement, lumbar chronic March 09, 2025 9:17am Left shoulder pain inactive March 222024 8:58am Back pain acute March 22, 2025 9:33am Segmental and somatic dysfunction of cervical region acute [facility] 2024 9:33am Segmental and somatic dysfunction of lumbar region acute March 22, 2025 9:33am Segmental and somatic dysfunction of pelvic region acute March 22, 2025 9:33am Segmental and somatic dysfunction of thoracic region acute [facility] 2024 9:33am Segmental and somatic dysfunction of [...] region suspected April 05, 2025 1 0:22am [facility] Work Phone: 1([phone]) 844-133304-03-2025 Evaluation note* Diagnosis Onset Date Resolution Status [...] displacement, lumbar chronic April 05, 2025 10:22am Segmental and somatic dysfunction of cervical region acute J une 2024 9:49am Segmental and somatic dysfunction of lumbar region acute [facility] 2024 9:49am Segmental and somatic dysfunction of pelvic region acute [facility] 2024 9:49am Segmental and somatic dysfunction of thoracic region acute J une 2024 9:49am Disc displacement, lumbar chronic April 21, 2025 9:49am [facility] Work Phone: 1(335) 472-788804-03-2025 Evaluation note* Diagnosis Onset Date Resolution Status [...] dysfunction of thoracic region acute M 2024 9:17am Disc displacement, lumbar chronic March 09, 2025 9:17am Left shoulder pain inactive March 222024 8:58am Back pain acute March 22, 2025 9:33am Segmental and somatic dysfunction of cervical region acute M 2024 9:33am Segmental and somatic dysfunction of lumbar region acute March 22, 2025 9:33am Segmental and somatic dysfunction of pelvic region acute March 22, 2025 9:33am Segmental and somatic dysfunction of thoracic region acute M 2024 9:33am Segmental and somatic dysfunction of cervical region acute J une 2024 10:22am Segmental and somatic dysfunction of lumbar region acute Noah e 2024 10:22am Segmental and somatic dysfunction of pelvic region acute [facility] e 2024 10:22am Segmental and somatic dysfunction of thoracic region acute J une 2024 10:22am Disc displacement, lumbar chronic April 05, 2025 10:22am Segmental and somatic dysfunction of cervical region acute J une 2024 9:49am Segmental and somatic dysfunction of lumbar region acute Noah e 2024 9:49am Segmental and somatic dysfunction of pelvic region acute [facility] 2024 9:49am Segmental and somatic dysfunction of thoracic region acute J une 2024 9:49am Disc displacement, lumbar chronic April 21, 2025 9:49am Left shoulder pain inactive May 062024 10:02am [facility] Work Phone: 1(273) 121-102304-03-2025 Evaluation note* Diagnosis Onset Date Resolution Status [...] dysfunction of thoracic region acute M 2024 9:17am Disc displacement, lumbar chronic March 09, 2025 9:17am Left shoulder pain inactive March 222024 8:58am Back pain acute March 22, 2025 9:33am Segmental and somatic dysfunction of cervical region acute M 2024 9:33am Segmental and somatic dysfunction of lumbar region acute March 22, 2025 9:33am Segmental and somatic dysfunction of pelvic region acute March 22, 2025 9:33am Segmental and somatic dysfunction of thoracic region acute [facility] 2024 9:33am Segmental and somatic dysfunction of cervical region acute J une 2024 10:22am Segmental and somatic dysfunction of lumbar region acute [facility] 2024 10:22am Segmental and somatic dysfunction of pelvic region acute [facility] 2024 10:22am Segmental and somatic dysfunction of thoracic region acute J une 2024 10:22am Disc displacement, lumbar chronic April 05, 2025 10:22am Segmental and somatic dysfunction of cervical region acute J une 2024 9:49am Segmental and somatic dysfunction of lumbar region acute Noah e 2024 9:49am Segmental and somatic dysfunction of pelvic region acute Noah e 2024 9:49am Segmental and somatic dysfunction of thoracic region acute J une 2024 9:49am Disc displacement, lumbar chronic April 21, 2025 9:49am Left shoulder pain inactive May 062024 10:02am Segmental and somatic dysfunction of cervical region acute J amina2024 10:30am Segmental and somatic dysfunction of lumbar region acute May 10:30am Segmental and somatic dysfunction of pelvic region acute May 10:30am Segmental and somatic dysfunction of thoracic region acute J amina 2024 10:30am Disc displacement, lumbar chronic June 01, 2025 10:30am [facility] [employer] Work Phone: 1([phone]) 765-262204-02-2025 Telephone encounter Note* Telephone Encounter - Evon [...] her know when it is ready for clam picker. [facility]04-02-2025 Miscellaneous Notes* Telephone Encounter - Evon Philippe [...] her know when it is ready for clam picker. * Telephone Encounter - Mirna Santos MA - 02/01/2025 2:42 PM EDT Faxed form completed to [facility] with A1C and office note Mirna Santos MA * Telephone Encounter - Evon Philippe LPN - 01/29/2025 8:31 AM EDT [employer] RESPONSE. [facility] does not handle this review. Please visit [email or web address] to start a prior authorization or fax information to [phone]. Please include all supporting chart notes. You may contact [employer] at [phone]. WILL FAX PA REQUEST TO NUMBER PROVIDED. Records faxed to for PA. * Telephone Encounter - Evon Philippe LPN - 01/28/2025 4:56 PM EDT Unable to complete electronically. Will try on covermymeds * Telephone Encounter - Evon Philippe LPN - 01/28/2025 4:55 PM EDT Electronic PA requested. * Telephone Encounter - Wilian Barnett RN - 01/28/2025 4:51 PM EDT Prior Authorization Documentation Prior authorization requested for the following medication: Medication: Ozempic 1 mg (all though PA done in Aug 2024 and approved until Aug 2025 this needs PA due to dose change). Provider: [employer] Name: [employer] Phone number: [phone] Patient ID number: [id number] Pharmacy Name: [facility] Pharm[facility] Pharmacy Telephone number: [phone] documented in this encounterCleveland [id number] Telephone encounter Note * Telephone Encounter - Mirna Santos MA - 02/01/2025 2:42 PM EDT Faxed form completed to [employer] with A1C and office note Mirna Santos MA [facility]03-28-2025 Telephone encounter Note* Telephone Encounter - Evon Philippe LPN - 01/29/2025 8:31 AM EDT [employer] RESPONSE. [facility] does not handle this review. Please visit [email or web address] to start a prior authorization or fax information to [phone]. Please include all supporting chart notes. You may contact [employer] at [phone]. WILL FAX PA REQUEST TO NUMBER PROVIDED. Records faxed to for PA. [facility]03-27-2025 Telephone encounter Note* Telephone Encounter - Evon Philippe LPN - 01/28/2025 4:56 PM EDT Unable to complete electronically. Will try on covermymeds [facility]03-27-2025 Telephone encounter Note* Telephone Encounter - Evon Philippe LPN - 01/28/2025 4:55 PM EDT Electronic PA requested. [facility]03-27-2025 Telephone encounter Note* Telephone Encounter - Wilian Barnett RN - 01/28/2025 4:51 PM EDT Prior Authorization Documentation Prior authorization requested for the following medication: Medication: Ozempic 1 mg (all though PA done in Aug 2024 and approved until Aug 2025 this needs PA due to dose change). Provider: [employer] Name: [employer] Phone number: [phone] Patient ID number: [id number] Pharmacy Name: [facility] Pharmacy Pharmacy Telephone number: [phone] [facility]03-27-2025 Telephone encounter Note* Telephone Encounter - Dennise Robles MA - 01/28/2025 8:45 AM EDT Scan on 01/28/2025 8:29 AM by ProviderSherry PA-C: BMP Scan on 01/28/2025 8:17 AM by Sherry Mccallum PA-C: HGB A1C [facility]03-27-2025 Miscellaneous Notes* Telephone Encounter - Dennise Robles MA - 01/28/2025 8:45 AM EDT Scan on 01/28/2025 8:29 AM by Sherry Mccallum PA-C: BMP Scan on 01/28/2025 8:17 AM by Sherry Mccallum PA-C: HGB A1C documented in this encounterPromedica Fostoria [facility]03-21-2025 NoteHNO ID: [id number] Author: IVETTE GRIMES MD Service: ? Author [...] 1 tablet by mouth once daily. Ipratropium [place] (ATROVENT) 21 mcg (0.03 %) nasal spray [...] 1 Each by INTRAUTERINE route as directed. [place]-3 Fatty Acids (FISH OIL) 500 mg cap Take 1 capsule by mouth once daily. blood sugar diagnostic (BLOOD GLUCOSE TEST) test strip Test blood sugar(s) 1 times daily. Dx: Type 2 DM - Controlled E11.9 Insulin: Yes Lancets lancets Test blood sugar(s) 1 times daily. Dx: Type 2 DM - Controlled E11.9 Insulin: No Svxefbbl-Oe-Ybf-Fe-FA tab Take 1 tablet by mouth once [...] Age of Onset Alcohol/Drug Mother Heart Father [place] Cancer Father PANCREATIC CANCER Diabetes Father Coronary [...] Wt Readings: Date: Wt: (more content not included)...[facility]03-21-2025 History of Present illness Narrative* Ivette Grimes [...] 1 tablet by mouth once daily. Ipratropium [place] (ATROVENT) 21 mcg (0.03 %) nasal spray [...] 1 Each by INTRAUTERINE route as directed. [place]-3 Fatty Acids (FISH OIL) 500 mg cap Take 1 capsule by mouth once daily. blood sugar diagnostic (BLOOD GLUCOSE TEST) test strip Test blood sugar(s) 1 times daily. Dx: Type 2 DM - Controlled E11.9 Insulin: Yes Lancets lancets Test blood sugar(s) 1 times daily. Dx: Type 2 DM - Controlled E11.9 Insulin: No Bwzxhvfj-Jq-Ffh-Fe-FA tab Take 1 tablet by mouth once [...] Age of Onset Alcohol/Drug Mother Heart Father [place] Cancer Father PANCREATIC CANCER Diabetes Father Coronary [...] six months and prn. documented in this encounterPromedica [facility]02-[facility]25 Telephone encounter Note * Telephone Encounter - [...] Storey LPN December 25, 2024 8:58 AM [facility]02-21-2025 Miscellaneous Notes* Telephone Encounter - Nirmala Storey [...] 25, 2024 8:58 AM documented in this encounterPromedica Fostoria [facility]02-17-2025 Telephone encounter Note * Telephone Encounter - Jumana Harrell LPN - 12/21/2024 3:19 PM EST Patient notified of results, verbalizes understanding of instructions. Pt stated she is about 80% better with the z-pack and cough drops. Will call is get worse again. Jumana Harrell LPN [facility]02-17-2025 Miscellaneous Notes* Telephone Encounter - Jumana Harrell LPN - 12/21/2024 3:19 PM EST Patient notified of results, verbalizes understanding of instructions. Pt stated she is about 80% better with the z-pack and cough drops. Will call is get worse again. Jumana Harrell LPN * Telephone Encounter - Jenni Martínez APRN.GABRIELA - 12/21/2024 2:33 PM EST Can you [...] symptoms improved with the zpack? Jenni Martínez APRN.GABRIELA documented in this encounterPromedica [facility]ost[facility]02-17-2025 Telephone encounter Note * Telephone Encounter - [...] improved with the zpack? Jenni Martínez APRN.CNP [facility] Work Phone: 1(644) 222-208702-07-2025 Telephone encounter Note* Telephone Encounter - Jumana Harrell LPN - 12/11/2024 2:24 PM EST Patient notified of results, verbalizes understanding of instructions. Jumana Harrell LPN [facility]02-07-2025 Miscellaneous Notes* Telephone Encounter - Jumana Harrell LPN - 12/11/2024 2:24 PM EST Patient notified of results, verbalizes understanding of instructions. Jumana Harrell LPN * Telephone Encounter - Jenni Martínez APRN.CNP - 12/11/2024 2:16 PM EST Can you please call the patient and let her know that I am still waiting for x- ray results from [facility]. I went ahead and sent in a [...] Provider: JENNI MARTÍNEZ APRN.CNP documented in this encounterPromedica Fost[facility]02-07-2025 Telephone encounter Note * Telephone Encounter - Jenni Martínez APRN.CNP - 12/11/2024 2:16 PM EST Can you please call the patient and let her know that I am still waiting for x- ray results from [facility]. I went ahead and sent in a [...] until gone. Authorizing Provider: JENNI MARTÍNEZ APRN.CNP [facility]02-07-2025 Instructions* Patient Instructions* Jenni Martínez APRN.CNP - 12/11/2024 11:32 AM EST Get chest xray completed today May use Codeine cough syrup as needed for cough Stay well hydrated Follow up pending test results. documented in this encounterPromedica Fostoria Community Hospital02-07-2025 History of Present illness Narrative* Jenni Martínez [...] 1 tablet by mouth once daily. Ipratropium [place] (ATROVENT) 21 mcg (0.03 %) nasal spray [...] 1 Each by INTRAUTERINE route as directed. [place]-3 Fatty Acids (FISH OIL) 500 mg cap Take 1 capsule by mouth once daily. blood sugar diagnostic (BLOOD GLUCOSE TEST) test strip Test blood sugar(s) 1 times daily. Dx: Type 2 DM - Controlled E11.9 Insulin: Yes Lancets lancets Test blood sugar(s) 1 times daily. Dx: Type 2 DM - Controlled E11.9 Insulin: No Tfvrcdti-Lf-Ugz-Fe-FA tab Take 1 tablet by mouth once daily. No current facility-administered medications for this visit. FAMILY HISTORY Problem Relation Age of Onset Alcohol/Drug Mother Heart Father [place] Cancer Father PANCREATIC CANCER Diabetes Father Coronary [...] discussed and patient voices understanding. Jenni Martínez APRN.GABRIELA This note was partially generated using [employer] voice recognition system. Note was reviewed for accuracy. There may be minor misspellings or grammar miscues with [employer] voice recognition. documented in this encounterPromedica Fostoria [facility] Hospital02-07-2025 NoteHNO ID: [id number] Author: JENNI MARTÍNEZ APRN.CNP Service: ? Author [...] 1 tablet by mouth once daily. Ipratropium [place] (ATROVENT) 21 mcg (0.03 %) nasal spray Use 2 Sprays in the nose every 12 hours. omeprazole (PRILOSEC) 20 mg capsule Take 1 capsule by mouth daily before breakfast. 11/05 hr before meal. MAGNESIUM ORAL Take by mouth. meclizine (ANTIVERT) 25 mg tab Take 25 mg by mouth once daily. Takes two tabs in am BIPAP levonorgestrel (KYLEENA) 17.5 mcg/24 hrs (5 yrs) 19.5 mg IUD 1 Each by INTRAUTERINE route as directed. [place]-3 Fatty Acids (FISH OIL) 500 mg cap Take 1 capsule by mouth once daily. blood sugar diagnostic (BLOOD GLUCOSE TEST) test strip Test blood sugar(s) 1 times daily. Dx: Type 2 DM - Controlled E11.9 Insulin: Yes Lancets lancets Test blood sugar(s) 1 times daily. Dx: Type 2 DM - Controlled E11.9 Insulin: No Fuontjce-Js-Acn-Fe-FA tab Take 1 tablet by mouth once daily. No current facility-administered medications for this visit. FAMILY HISTORY Problem Relation Age of Onset Alcohol/Drug Mother Heart Father IA Cancer Father PANCREATIC CANCER Diabetes Father Coronary [...] : No history o (more content not included)...[facility] 12-11-2024 Telephone encounter Note* Telephone Encounter - Brittney Meredith RN - 12/11/2024 8:17 AM EST Patient calling to make appt for evaluation of respiratory sx's that began approx 4 weeks ago. Pt states she feels she may have bronchitis or pneumonia. States she was at [facility] ER last month due to dizziness, vision [...] evaluation of respiratory sx's. Brittney Meredith RN [facility]02-07-2025 Miscellaneous Notes* Telephone Encounter - Brittney Meredith RN - 12/11/2024 8:17 AM EST Patient calling to make appt for evaluation of respiratory sx's that began approx 4 weeks ago. Pt states she feels she may have bronchitis or pneumonia. States she was at [facility] ER last month due to dizziness, vision [...] sx's. Brittney Meredith RN documented in this encounterPromedica Fostoria [facility] Hospital01-22-2025 Telephone encounter Note * Telephone Encounter - [...] Eric LPN November 25, 2024 2:23 PM [facility]01-22-2025 Miscellaneous Notes* Telephone Encounter - Hailey Eric [...] Thank you. Stephanie Parsons. documented in this encounterPromedica Fostoria Community Hospital01-22-2025 Telephone encounter Note * Telephone Encounter - [...] found Please advise. Thank you. Stephanie Parsons. [facility]01-20-2025 Telephone encounter Note* Telephone Encounter - Judith [...] Judith Cueto November 23, 2024 12:34 PM [facility]01-20-2025 Miscellaneous Notes* Telephone Encounter - Judith Napier [...] 23, 2024 12:34 PM documented in this encounterPromedica Fostoria Community Hospital01-14-2025 NotePatient Outreach (FAMPWS) TORI GRAY ([id number]) 1980 F Date Time Provider Department 11/17/24 [...] for screening mammogram for breast cancer [Z12.31] Order(s):FLASH SCREENING W JAQUELIN [1619697] Order #: [id number] FUTURE Prescriptions as of 12/18/2024 - potassium [...] tablet by mouth once daily. - Ipratropium [place] (ATROVENT) 21 mcg (0.03 %) nasal spray [...] Each by INTRAUTERINE route as directed. - [place]-3 Fatty Acids (FISH OIL) 500 mg cap Take 1 capsule by mouth once daily. - blood sugar diagnostic (BLOOD GLUCOSE TEST) test strip Test blood sugar(s) 1 times daily. Dx: Type 2 DM - Controlled E11.9 Insulin: Yes - Lancets lancets Test blood sugar(s) 1 times daily. Dx: Type 2 DM - Controlled E11.9 Insulin: No - Yqfxpvoc-Tv-Uku-Fe-FA tab Take 1 tablet by mouth once daily. Meds Comments as of 03/01/2019: Percocet March 01, 2019 Stephanie Suresh RN Problem List As Of Date 11/17/2024 [...] 05/06/2009 01/23/2010 Routine general medical examination at [facility]*01/23/2010 12/06/2012 Class: Chronic Routine gynecological examination [Z01.419] 01/23/2010 02/22/2014 Class: Chronic Morbid Obesity [E66.01] 01/23/2010 Lumbar Disc Disorder [M51.9] 02/16/2010 Routine general medical examination at [facility]*12/06/2012 02/22/2014 Anxiety [F41.9] 06/07/2014 Type 2 diabetes [...] type 2 diabetes m (more content not included)...[facility]12-23-2024 Telephone encounter Note* Telephone Encounter - Priscila [...] France RN October 26, 2024 7:53 PM [facility]12-23-2024 Miscellaneous Notes* Telephone Encounter - Priscila France [...] 26, 2024 7:53 PM documented in this encounterPromedica Fostoria Community Hospital12-16-2024 History of Present illness Narrative* Ivette Grimes [...] visit. Either the patient or their legal reimbursement representative has been informed of the risks [...] hours asneeded for wheezing/shortness of breath. Ipratropium [place] (ATROVENT) 21 mcg (0.03 %) nasal spray [...] 1 Each by INTRAUTERINE route as directed. [place]-3 Fatty Acids (FISH OIL) 500 mg cap Take 1 capsule by mouth once daily. blood sugar diagnostic (BLOOD GLUCOSE TEST) test strip Test blood sugar(s) 1 times daily. Dx: Type 2 DM - Controlled E11.9 Insulin: Yes Lancets lancets Test blood sugar(s) 1 times daily. Dx: Type 2 DM - Controlled E11.9 Insulin: No Emphabgq-Sl-Pxe-Fe-FA tab Take 1 tablet by mouth once [...] Age of Onset Alcohol/Drug Mother Heart Father [place] Cancer Father PANCREATIC CANCER Diabetes Father Coronary [...] TABLET Ivette Grimes MD documented in this encounterPromedica Fostoria Community Hospital12-16-2024 NoteHNO ID: [id number] Author: IVETTE GRIMES MD Service: ? Author [...] visit. Either the patient or their legal reimbursement representative has been informed of the risks [...] as needed for wheezing/shortness of breath. Ipratropium [place] (ATROVENT) 21 mcg (0.03 %) nasal spray [...] 1 Each by INTRAUTERINE route as directed. [place]-3 Fatty Acids (FISH OIL) 500 mg cap Take 1 capsule by mouth once daily. blood sugar diagnostic (BLOOD GLUCOSE TEST) test strip Test blood sugar(s) 1 times daily. Dx: Type 2 DM - Controlled E11.9 Insulin: Yes Lancets lancets Test blood sugar(s) 1 times daily. Dx: Type 2 DM - Controlled E11.9 Insulin: No Jqpazasf-Ji-Hkz-Fe-FA tab Take 1 tablet by mouth once [...] Age of Onset Alcohol/Drug Mother Heart Father [place] Cancer Father PANCREATIC CANCER Diabetes Father Coronary [...] wheeze. No pallor. ASSESSM (more content not included)...[facility]12-16-2024 Evaluation note* Diagnosis Onset Date Resolution Status Admit Date Segmental and somatic dysfunction of lumbar region acute Oct emb2023 8:57am Segmental and somatic dysfunction of pelvic region acute Oct 8:57am Segmental and somatic dysfunction of thoracic region acute October 19 8:57am Disc displacement, lumbar chronic October 19, 2024 8:57am [facility] Work Phone: 1(848) 894-314511-21-2024 History of Present illness Narrative* Ivette Grimes [...] visit. Either the patient or their legal reimbursement representative has been informed of the risks [...] No increased caffeine. Sugars are increased recently [phone]. Not coming down as much as it [...] hours asneeded for wheezing/shortness of breath. Ipratropium [place] (ATROVENT) 21 mcg (0.03 %) nasal spray [...] 1 Each by INTRAUTERINE route as directed. [place]-3 Fatty Acids (FISH OIL) 500 mg cap Take 1 capsule by mouth once daily. blood sugar diagnostic (BLOOD GLUCOSE TEST) test strip Test blood sugar(s) 1 times daily. Dx: Type 2 DM - Controlled E11.9 Insulin: Yes Lancets lancets Test blood sugar(s) 1 times daily. Dx: Type 2 DM - Controlled E11.9 Insulin: No Nosspshc-Gv-Tmn-Fe-FA tab Take 1 tablet by mouth once [...] Age of Onset Alcohol/Drug Mother Heart Father [place] Cancer Father PANCREATIC CANCER Diabetes Father Coronary [...] weeks Ivette Grimes MD documented in this encounterPromedica Fostoria Community Hospital11-21-2024 NoteHNO ID: [id number] Author: IVETTE GRIMES MD Service: ? Author [...] visit. Either the patient or their legal reimbursement representative has been informed of the risks [...] No increased caffeine. Sugars are increased recently [phone]'s. Not coming down as much as it [...] as needed for wheezing/shortness of breath. Ipratropium [place] (ATROVENT) 21 mcg (0.03 %) nasal spray [...] 1 Each by INTRAUTERINE route as directed. [place]-3 Fatty Acids (FISH OIL) 500 mg cap Take 1 capsule by mouth once daily. blood sugar diagnostic (BLOOD GLUCOSE TEST) test strip Test blood sugar(s) 1 times daily. Dx: Type 2 DM - Controlled E11.9 Insulin: Yes Lancets lancets Test blood sugar(s) 1 times daily. Dx: Type 2 DM - Controlled E11.9 Insulin: No Sklmimiq-Wh-Tqx-Fe-FA tab Take 1 tablet by mouth once [...] Age of Onset Alcohol/Drug Mother Heart Father [place] Cancer Father PANCREATIC CANCER Diabetes Father Coronary [...] Wt Readings: Date: Wt: (more content not included)...[facility]10-31-2024 Instructions* Patient Instructions* Fatuma Beckford PA-C - [...] office for further instructions. documented in this encounterPromedica Fostoria [facility]10-31-2024 NoteHNO ID: [id number] Author: FATUMA BECKFORD PA-C Service: ? Author Type: Physician Stitch Welder Type: Progress Notes Filed: 09/03/2024 13:30 Note [...] for migraine Informed Consent Consent Obtained: Written [place] Protocol A moment to CARE was completed [...] applicable Written Consent Obtained: Written LOT #: [id number] Expiration Date: Month: Year: 2025 Second vial: LOT #: [id number] Expiration Date: Month: 12 Year: 2025 Injection Sites Left (Units) Left (Sites) Right (Units) Right (Sites) TOTAL (Units) Nurse Researcher 5 1 5 1 10 Procerus Units: [...] weeks, mild. Estimates 5 migraines since march. [facility]10-31-2024 History of Present illness Narrative* Fatuma Beckford [...] for migraine Informed Consent Consent Obtained: Written [place] Protocol A moment to CARE was completed [...] applicable Written Consent Obtained: Written LOT #: [id number] Expiration Date: Month: : 2025 Second vial: LOT #: [id number] Expiration Date: Month: 12 Year: 2025 Injection Sites Left (Units) Left (Sites) Right (Units) Right (Sites) TOTAL (Units) Nurse Researcher 5 1 5 1 10 Procerus Units: [...] march. Fatuma Beckford PA-C documented in this encounterPromedica Fostoria [facility]10-29-2024 Telephone encounter Note * Telephone Encounter - Rebecca Baker - 09/01/2024 4:08 PM EDT Tori was Ok'ed to get her botox appointment moved into a new patient time due to frequent rescheduling of this visit. She is now scheduled for , 09/03. She has also requested a refill of her Nurtec ODT medication. Please advise, Rebecca Baker [facility]10-29-2024 Miscellaneous Notes* Telephone Encounter - Rebecca Baker - 09/01/2024 4:08 PM EDT Tori was Ok'ed to get her botox appointment moved into a new patient time due to frequent rescheduling of this visit. She is now scheduled for , 09/03. She has also requested a refill of her [facility] ODT medication. Please advise, Rebecca Baker documented in this encounterPromedica Fostoria [facility] Hospital10-29-2024 Telephone encounter Note * Telephone Encounter - [...] with this date and time. Rebecca Baker [facility]10-29-2024 Miscellaneous Notes* Telephone Encounter - Rebecca Baker [...] 09/01/2024 3:54 PM EDT Patient read mychart * Telephone Encounter - Steph Nieto - 09/01/2024 3:30 PM EDT 09/10 [place] appt rescheduled to 12/5 and put on wait list. Provider will be out of office. 1st attempt to notify pt, sent MC message. documented in this encounterPromedica Fostoria [facility] Hospital10-29-2024 Telephone encounter Note * Telephone Encounter - Tala Wilson - 09/01/2024 3:54 PM EDT Patient read mychart [facility]10-29-2024 Telephone encounter Note* Telephone Encounter - Steph Nieto - 09/01/2024 3:30 PM EDT 09/10 [place] appt rescheduled to 12/5 and put on wait list. Provider will be out of office. 1st attempt to notify pt, sent MC message. [facility]10-08-2024 Telephone encounter Note* Telephone Encounter - Steph Nieto - 08/11/2024 3:58 PM EDT Pt read MC message. [facility]10-08-2024 Miscellaneous Notes* Telephone Encounter - Steph Nieto - 08/11/2024 3:58 PM EDT Pt read MC message. * Telephone Encounter - Steph Nieto - 08/11/2024 3:32 PM EDT [place] appt on 09/10 moved to 3 PM. 1st attempt to notify pt, sent MC message. documented in this encounterPromedica Fostoria Community Hospital10-08-2024 Telephone encounter Note * Telephone Encounter - Steph Nieto - 08/11/2024 3:32 PM EDT [place] appt on 09/10 moved to 3 PM. 1st attempt to notify pt, sent MC message. [facility]10-08-[facility]24 Telephone encounter Note* Telephone Encounter - Ingrid [...] Salmon MA August 11, 2024 11:06 AM [facility]10-08-2024 Miscellaneous Notes* Telephone Encounter - Ingrid Salmon [...] 11, 2024 11:06 AM documented in this encounterPromedica Fostoria [facility] Hospital10-03-2024 Telephone encounter Note * Telephone Encounter - Dennise Robles MA - 08/06/2024 10:38 AM EDT APPROVAL. SAGE. EOC # [id number] VALIDITY DATES 08/06/24-08/05/25 Pharmacy informed. Dennise Robles MA [facility]10-03-2024 Miscellaneous Notes* Telephone Encounter - Dennise Robles MA - 08/06/2024 10:38 AM EDT APPROVAL. ADELEEMPIC. EOC # [id number] VALIDITY DATES 08/06/24-08/05/25 Pharmacy informed. Dennise Robles MA documented in this encounterPromedica Fostoria [facility] Hospital10-02-2024 NoteHNO ID: [id number] Author: IVETTE GRIMES MD Service: ? 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 Excited for this because will not be as physical. Reviewed labs recently done at [facility]. A1c was 6.7. ldl was 105. Hdl [...] as needed for wheezing/shortness of breath. Ipratropium [place] (ATROVENT) 21 mcg (0.03 %) nasal spray [...] 1 Each by INTRAUTERINE route as directed. [place]-3 Fatty Acids (FISH OIL) 500 mg cap Take 1 capsule by mouth once daily. blood sugar diagnostic (BLOOD GLUCOSE TEST) test strip Test blood sugar(s) 1 times daily. Dx: Type 2 DM - Controlled E11.9 Insulin: Yes Lancets lancets Test blood sugar(s) 1 times daily. 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 Excited for this because will not be as physical. Reviewed labs recently done at [facility]. A1c was 6.7. ldl was 105. Hdl [...] hours asneeded for wheezing/shortness of breath. Ipratropium [place] (ATROVENT) 21 mcg (0.03 %) nasal spray [...] 1 Each by INTRAUTERINE route as directed. [place]-3 Fatty Acids (FISH OIL) 500 mg cap Take 1 capsule by mouth once daily. blood sugar diagnostic (BLOOD GLUCOSE TEST) test strip Test blood sugar(s) 1 times daily. Dx: Type 2 DM - Controlled E11.9 Insulin: Yes Lancets lancets Test blood sugar(s) 1 times daily. Dx: Type 2 DM - Controlled E11.9 Insulin: No Hijlfhem-Gv-Mwk-Fe-FA tab Take 1 tablet by mouth once [...] Age of Onset Alcohol/Drug Mother Heart Father IA Cancer Father PANCREATIC CANCER Diabetes Father Coronary [...] 06/06/2024 Influenza Vaccine(1) due on 07/05/2024 Covid-19 Vaccine(2023- season) due on 07/05/2024 VITALS: BP 114/62 [...] stable. Ivette Grimes MD documented in this encounterPromedica Fostoria [facility]09-23-2024 Telephone encounter Note * Telephone Encounter - [...] Yoon LPN July 27, 2024 8:45 AM [facility]09-23-2024 Miscellaneous Notes* Telephone Encounter - Lubna Yoon [...] 27, 2024 8:45 AM documented in this encounterPromedica Fostoria Community Hospital09-17-2024 Telephone encounter Note * Telephone Encounter - Ingrid Salmon MA - 07/21/2024 3:02 PM EDT Pt notified. Requested to have order faxed to [facility]. Order faxed. Ingrid Salmon MA [facility]09-17-2024 Miscellaneous Notes* Telephone Encounter - Ingrid Salmon MA - 07/21/2024 3:02 PM EDT Pt notified. Requested to have order faxed to [facility]. Order faxed. Ingrid Salmon MA * Telephone [...] advise, Gale Bower RN documented in this encounterPromedica Fostoria [facility] Hospital09-17-2024 Telephone encounter Note * Telephone Encounter - Ivette Grimes MD - 07/21/2024 2:18 PM EDT ordered [facility]09-17-2024 Telephone encounter Note* Telephone Encounter - Gale Bower RN - 07/21/2024 1:45 PM EDT Patient calls and states that cough is not getting any better. Patient states that Dr. Grimes had told her that if cough had not improved that provider wanted to order her a chest xray. Please review and advise, Gale Bower RN [facility]09-06-2024 Telephone encounter Note* Telephone Encounter - Nirmala Storey LPN - 07/10/2024 11:16 AM EDT Left detailed message for patient. [facility]09-06-2024 Miscellaneous Notes* Telephone Encounter - Nirmala Storey [...] advise, Gale Bower RN documented in this encounterPromedica Fostoria [facility] Hospital09-06-2024 Telephone encounter Note * Telephone Encounter - Ivette Grimes MD - 07/10/2024 11:11 AM EDT Rx sent for farxiga. Lets try this Call sugars in two weeks. [facility]09-05-2024 Telephone encounter Note* Telephone Encounter - Gale [...] Please review and advise, Gale Bower RN [facility]09-04-2024 Telephone encounter Note* Telephone Encounter - Ivette Grimes MD - 07/08/2024 2:03 PM EDT noted [facility]09-04-2024 Miscellaneous Notes* Telephone Encounter - Ivette Grimes MD - 07/08/2024 2:03 PM EDT noted * Telephone Encounter - Dennise Robles MA - 07/08/2024 1:13 PM EDT Labs in chart review. Dennise Robles MA documented in this encounterPromedica Fostoria [facility] Hospital09-04-2024 Telephone encounter Note * Telephone Encounter - Dennise Robles MA - 07/08/2024 1:13 PM EDT Labs in chart review. Dennise Robles MA [facility]08-30-2024 NoteHNO ID: [id number] Author: IVETTE GRIMES MD Service: ? Author [...] as needed for wheezing/shortness of breath. Ipratropium [place] (ATROVENT) 21 mcg (0.03 %) nasal spray [...] 1 Each by INTRAUTERINE route as directed. [place]-3 Fatty Acids (FISH OIL) 500 mg cap Take 1 capsule by mouth once daily. blood sugar diagnostic (BLOOD GLUCOSE TEST) test strip Test blood sugar(s) 1 times daily. Dx: Type 2 DM - Controlled E11.9 Insulin: Yes Lancets lancets Test blood sugar(s) 1 times daily. Dx: Type 2 DM - Controlled E11.9 Insulin: No Wrfdugrm-Uq-Hjs-Fe-FA tab Take 1 tablet by mouth once [...] 2006: LAPAROSCOPY SURG CHOLECYSTECTOMY Comment: Cholecystectomy, lap (oRwena Monet) 2019: PAST SURGICAL HISTORY OF Comment: stent into kidney 07/13/2010: REMOVE IUD FAMILY HISTORY Problem Relation Age of Onset Alcohol/Drug Mother Heart Father IA Cancer Father PANCREATIC CANCER Diabetes Father Coronary [...] equally round and reacti (more content not included)...[facility]08-30-2024 History of Present illness Narrative* Ivette Grimes [...] hours asneeded for wheezing/shortness of breath. Ipratropium [place] (ATROVENT) 21 mcg (0.03 %) nasal spray [...] 1 Each by INTRAUTERINE route as directed. [place]-3 Fatty Acids (FISH OIL) 500 mg cap Take 1 capsule by mouth once daily. blood sugar diagnostic (BLOOD GLUCOSE TEST) test strip Test blood sugar(s) 1 times daily. Dx: Type 2 DM - Controlled E11.9 Insulin: Yes Lancets lancets Test blood sugar(s) 1 times daily. Dx: Type 2 DM - Controlled E11.9 Insulin: No Uwzbwurz-Sc-Pqa-Fe-FA tab Take 1 tablet by mouth once [...] Age of Onset Alcohol/Drug Mother Heart Father IA Cancer Father PANCREATIC CANCER Diabetes Father Coronary [...] follow up or prn documented in this encounterPromedica Fostoria [facility]08-24-2024 Telephone encounter Note * Telephone Encounter - [...] Lazo LPN June 27, 2024 11:35 AM [facility]08-24-2024 Miscellaneous Notes* Telephone Encounter - Quinn Lazo [...] 27, 2024 11:35 AM documented in this encounterPromedica Fostoria Community Hospital08-24-2024 Telephone encounter Note * Telephone Encounter - [...] Lazo LPN June 27, 2024 11:29 AM [facility]08-24-2024 Miscellaneous Notes* Telephone Encounter - Quinn Lazo [...] 27, 2024 11:29 AM documented in this encounterPromedica Fostoria Community Hospital08-08-2024 Telephone encounter Note * Telephone Encounter - Lubna De La Garza APRN.CNP - 06/11/2024 12:40 PM EDT Tessalon Perles were ordered. [facility]08-08-2024 Miscellaneous Notes* Telephone Encounter - Lubna De La Garza APRN.CNP - 06/11/2024 12:40 PM EDT Tessalon Perles were ordered. * Telephone Encounter - Ingrid Salmon MA - 06/11/2024 12:25 PM EDT See mychart message documented in this encounterPromedica Fostoria Community Hospital08-08-2024 Telephone encounter Note * Telephone Encounter - Ingrid Salmon MA - 06/11/2024 12:25 PM EDT See MobileReactort message [facility]08-01-2024 Telephone encounter Note* Telephone Encounter - Claribel Wright LPN - 06/04/2024 3:37 PM EDT Prior Auth Determination: Denied with Cover my meds. Received via: CMM Medication/ Treatment: Bannerte Reason: Outcome N/A today by [facility] [address] [facility] Prior Authorization Department does not manage Prior Authorizations for this plan. Please contact member services phone number on the back of the member ID card. Appeal Information (if included): Re submitted via [employer] Benefits Faxed to [phone] Confirmation received [facility]08-01-2024 Miscellaneous Notes* Telephone Encounter - Claribel Wright LPN - 06/04/2024 3:37 PM EDT Prior Auth Determination: Denied with Cover my meds. Received via: CMM Medication/ Treatment: Nurte Reason: Outcome N/A today by [facility] [address] [facility] Prior Authorization Department does not manage Prior Authorizations for this plan. Please contact member services phone number on the back of the member ID card. Appeal Information (if included): Re submitted via [employer] Faxed to [phone] Confirmation received * Telephone Encounter - Claribel Wright LPN - 06/04/2024 2:22 PM EDT Prior Authorization PENDING Prior Authorization Request From: [facility] Medication/ Treatment: Nurtec Submitted Via Cover My Meds Reference# (if available): (Santos: [id number]) documented in this encounterPromedica Fostoria Community Hospital08-01-2024 Telephone encounter Note * Telephone Encounter - Claribel Wright LPN - 06/04/2024 2:22 PM EDT Prior Authorization PENDING Prior Authorization Request From: [facility] Medication/ Treatment: Nurtec Submitted Via Cover My Meds Reference# (if available): (Santos: [id number]) [facility]07-31-2024 NoteHNO ID: [id number] Author: IVETTE GRIMES MD Service: ? Author [...] visit. Either the patient or their legal reimbursement representative has been informed of the risks [...] as needed for wheezing/shortness of breath. Ipratropium [place] (ATROVENT) 21 mcg (0.03 %) nasal spray [...] 1 Each by INTRAUTERINE route as directed. [place]-3 Fatty Acids (FISH OIL) 500 mg cap Take 1 capsule by mouth once daily. blood sugar diagnostic (BLOOD GLUCOSE TEST) test strip Test blood sugar(s) 1 times daily. Dx: Type 2 DM - Controlled E11.9 Insulin: Yes Lancets lancets Test blood sugar(s) 1 times daily. Dx: Type 2 DM - Controlled E11.9 Insulin: No Hwqqapmm-Bv-Hlh-Fe-FA tab Take 1 tablet by mouth once [...] Age of Onset Alcohol/Drug Mother Heart Father [place] Cancer Father PANCREATIC CANCER Diabetes Father Coronary [...] oz) 12/26/2023 123.4 kg (more content not included)...[facility] 06-03-2024 History of Present illness Narrative* Ivette [...] visit. Either the patient or their legal reimbursement representative has been informed of the risks [...] hours asneeded for wheezing/shortness of breath. Ipratropium [place] (ATROVENT) 21 mcg (0.03 %) nasal spray [...] 1 Each by INTRAUTERINE route as directed. [place]-3 Fatty Acids (FISH OIL) 500 mg cap Take 1 capsule by mouth once daily. blood sugar diagnostic (BLOOD GLUCOSE TEST) test strip Test blood sugar(s) 1 times daily. Dx: Type 2 DM - Controlled E11.9 Insulin: Yes Lancets lancets Test blood sugar(s) 1 times daily. Dx: Type 2 DM - Controlled E11.9 Insulin: No Vgzrzdiw-Bm-Pcc-Fe-FA tab Take 1 tablet by mouth once [...] Age of Onset Alcohol/Drug Mother Heart Father [place] Cancer Father PANCREATIC CANCER Diabetes Father Coronary [...] issues. Ivette Grimes MD documented in this encounterPromedica Fostoria [facility] Hospital07-10-2024 Telephone encounter Note * Telephone Encounter - [...] Lazo LPN May 13, 2024 11:29 AM [facility]07-10-2024 Miscellaneous Notes* Telephone Encounter - Quinn Lazo [...] 13, 2024 11:29 AM documented in this encounterPromedica Fostoria Community Hospital06-28-2024 Telephone encounter Note * Telephone Encounter - Cindy Edouard APRN.CNP - 05/01/2024 12:08 PM EDT Script sent. Cindy Edouard APRN.CNP [facility] Work Phone: 1(318) 128-836606-28-2024 Miscellaneous Notes* Telephone Encounter - Cindy Edouard APRN.CNP - 05/01/2024 12:08 PM EDT Script sent. Cindy Edouard APRN.CNP * Telephone Encounter - Rukhsana Wood - 05/01/2024 11:47 AM EDT Tori is calling Ivette rGimes MD today to request a medication not on current med list: Tizanidine 4 mg tablet taking every 8 hours as needed #60 refill 0 Pharmacy [facility] Please send today if possible, patient is out of this medicaiton Patient has been identified by name and birthdate. Duration of symptoms: N/A Person calling: self Call patient at: on cell [phone] (home) [phone] (work) [phone] (cell) Was an appointment scheduled: No Closing statement: Results or non-symptom based questions: Thank you for calling [facility], your call will be returned within the next business day. Rukhsana Guerrero documented in this encounterPromedica Fostoria Community Hospital06-28-2024 Telephone encounter Note * Telephone Encounter - Rukhsana Wood - 05/01/2024 11:47 AM EDT Tori is calling Ivette Grimes MD today to request a medication not on current med list: Tizanidine 4 mg tablet taking every 8 hours as needed #60 refill 0 Pharmacy [facility] Please send today if possible, patient is out of this [facility] Patient has been identified by name and birthdate. Duration of symptoms: N/A Person calling: self Call patient at: on cell [phone] (home) [phone] (work) [phone] (cell) Was an appointment scheduled: No Closing statement: Results or non-symptom based questions: Thank you for calling [facility], your call will be returned within the next business day. Rukhsana Guerrero [facility]06-17-2024 Telephone encounter Note* Telephone Encounter - Priscila [...] France RN April 20, 2024 11:22 AM [facility]06-17-2024 Miscellaneous Notes* Telephone Encounter - Priscila France [...] 20, 2024 11:22 AM documented in this encounterPromedica Fostoria Community Hospital06-17-2024 Telephone encounter Note * Telephone Encounter - [...] Yoon LPN April 20, 2024 10:56 AM [facility]06-17-2024 Miscellaneous Notes* Telephone Encounter - Lubna Yoon [...] Yoon LPN April 20, 2024 10:56 AM documented in this encounterPromedica Fostoria Community Hospital06-12-2024 Telephone encounter Note * Telephone Encounter - Mirna Santos MA - 04/15/2024 12:33 PM EDT PA approved till 04/14/2025. Faxed approval to pharmacy and patient left Mirna Santos MA [facility]06-12-2024 Miscellaneous Notes* Telephone Encounter - Mirna Santos MA - 04/15/2024 12:33 PM EDT PA approved till 04/14/2025. Faxed approval to pharmacy and patient left Mirna Santos MA * Telephone Encounter - Mirna Santos MA - 04/15/2024 8:42 AM EDT Submitted PA through [employer]benefits for Trulicity 0.75 mg. Form faxed with office notes and A1c results Mirna Santos MA documented in this encounterPromedica Fostoria Community Hospital06-12-2024 Telephone encounter Note * Telephone Encounter - Mirna Santos MA - 04/15/2024 8:42 AM EDT Submitted PA through [employer] for Trulicity 0.75 mg. Form faxed with office notes and A1c results Mirna Santos MA [facility]06-11-2024 Telephone encounter Note* Telephone Encounter - Sheron Anne - 04/14/2024 9:01 AM EDT Last: 02/15/2023 Noted-Follow up in 3 months. Consider transfer of care back to PCP if patient does well on the current dose of her medication atthe next visit. It does not appear that you have seen her since [facility]06-11-2024 Miscellaneous Notes* Telephone Encounter - Sheron Anne - 04/14/2024 9:01 AM EDT Last: 02/15/2023 Noted-Follow up in 3 months. Consider transfer of care back to PCP if patient does well on the current dose of her medication atthe next visit. It does not appear that you have seen her since documented in this encounterPromedica Fostoria Community Hospital06-03-2024 Telephone encounter Note * Telephone Encounter - Darrion Severino MA - 04/06/2024 2:26 PM EDT Reminder set for botox authorization to be submitted 05/31. Due for next visit 07/01/24. Previous 04/02/24. [facility]06-03-[facility]24 Miscellaneous Notes* Telephone Encounter - Darrion Severino MA - 04/06/2024 2:26 PM EDT Reminder set for botox authorization to be submitted 05/31. Due for next visit 07/01/24. Previous 04/02/24. documented in this encounterPromedica Fostoria Community Hospital05-30-2024 Instructions* Patient Instructions* Fatuma Beckford PA-C - [...] at for further instructions. documented in this encounterPromedica Fostoria Community Hospital05-30-2024 History of Present illness Narrative* Fatuma Beckford [...] for migraine Informed Consent Consent Obtained: Written [place] Protocol A moment to CARE was completed [...] applicable Written Consent Obtained: Written LOT #: [id number] Expiration Date: Month: 6 Year: 2025 Second vial: LOT #: [id number] Expiration Date: Month: 6 Year: 2025 Injection Sites Left (Units) Left (Sites) Right (Units) Right (Sites) TOTAL (Units) Nurse Researcher 5 1 5 1 10 Procerus Units: [...] needed. Fatuma Beckford PA-C documented in this encounterPromedica Fostoria Community Hospital04-26-2024 Telephone encounter Note * Telephone Encounter - Alyssa Andrews LPN - 02/28/2024 1:21 PM EDT Patient Mode Mediahart message requesting the following refill Refill(s) Requested: Requested Prescriptions Pending Prescriptions Disp Refills tiZANidine (ZANAFLEX) 4 mg tablet 60 tablet 0 Sig: Take 1 tablet by mouth every 8 hours as needed. ALLERGIES Allergen Reactions Lidocaine Hives Steroids [Betametha* Hives (home) [phone] (work) [phone] (cell) Last Office Visit Date: 12/09/2023 Last Distance Health Visit: 07/15/2023 Future Appointment: Visit date not found The patients preferred pharmacy has been captured for this encounter? yes Request is for script(s) to be escript to pharmacy. Alyssa Andrews LPN [facility]04-26-2024 Miscellaneous Notes* Telephone Encounter - Alyssa Andrews LPN - 02/28/2024 1:21 PM EDT Patient MyChart message requesting the following refill Refill(s) Requested: Requested Prescriptions Pending Prescriptions Disp Refills tiZANidine (ZANAFLEX) 4 mg tablet 60 tablet 0 Sig: Take 1 tablet by mouth every 8 hours as needed. ALLERGIES Allergen Reactions Lidocaine Hives Steroids [Betametha* Hives (home) [phone] (work) [phone] (cell) Last Office Visit Date: 12/09/2023 Last [facility] Health Visit: 07/15/2023 Future Appointment: Visit date not found The patients preferred pharmacy has been captured for this encounter? yes Request is for script(s) to be escript to pharmacy. Alyssa Andrews LPN documented in this encounterPromedica Fostoria Community Hospital03-20-2024 Miscellaneous Notes* Telephone Encounter - Stephanie Parsons - 01/22/2024 4:00 PM EDT Patient has been identified by name and date of : Yes Patient phones for refill(s): Patient called for a refill of Tizanidine 4 mg. (Not in refill list). Please send to [facility] pharmacy. Date of last office visit in primary care: 12/09/2023 Date of next office visit in primary care: none Please advise. Thank you. Stephanie Parsons. documented in this encounterPromedica Fostoria Community Hospital03-13-2024 Miscellaneous Notes* Telephone Encounter - Roya Jaramillo LPN - 01/15/2024 12:07 PM EDT Fax received- [facility] has been approved from 01/15/24 - 04/16/24. Roya Jaramillo LPN * Telephone Encounter - Angely Goldsmith LPN - 01/14/2024 5:30 PM EDT Faxed Prior authorization Anthony, signed by provider to [employer] [phone]. Angely Goldsmith LPN * Telephone Encounter - Angely Goldsmith LPN - 01/09/2024 5:17 PM EST Prior Authorization from [employer] received for Nurtec 75 mg, EOC number [id number] dated 01/09/2024 requested a completed drug specific form to be completed, signed by provider faxed. Copy placed on MQ bin in the [place] location to review, sign. Angely Goldsmith LPN * Telephone Encounter - Roya Jaramillo LPN - 01/03/2024 3:39 PM EST Signed completed form faxed per request. Roya Jaramillo LPN * Telephone Encounter - Mariaa Ambrosio OCCA - 12/27/2023 9:01 AM EST Prior authorization needed for Anthony. Patient has [employer]ef[employer]blanca, form completed and OV notes attached. Placed on providers desk for signature when she returns to office 12/31. Once signed, please fax asindicated on form. Thank you. GRISELDA Jasmine documented in this encounterPromedica Fostoria Community Hospital02-22-2024 Instructions* Patient Instructions* Fatuma Beckford PA-C - [...] office for further instructions. documented in this encounterPromedica Fostoria Community Hospital02-22-2024 History of Present illness Narrative* Fatuma Beckford [...] for migraine Informed Consent Consent Obtained: Written [place] Protocol A moment to CARE was completed [...] applicable Written Consent Obtained: Written LOT #: [id number] Expiration Date: Month: Year: 2025 Second vial: LOT #: [id number] Expiration Date: Month: 6 Year: 2025 Injection Sites Left (Units) Left (Sites) Right (Units) Right (Sites) TOTAL (Units) Nurse Researcher 5 1 5 1 10 Procerus Units: [...] 12 weeks for repeat botox therapy. Willneed regioh at next appointment. Fatuma Beckford PA-C documented in this encounterPromedica Fostoria Community Hospital02-05-2024 Miscellaneous Notes* Telephone Encounter - Nirmala Storey LPN - 12/09/2023 6:36 PM EST Faxed to [facility]. * Telephone Encounter - Ivette Grimes MD - 12/09/2023 6:04 PM EST Order placed * Telephone Encounter - Nirmala Storey LPN - 12/09/2023 5:48 PM EST Please file mammo. For [facility] need to be mammo with jaquelin. After filed please fax to [facility] for patient. documented in this encounterPromedica Fostoria Community Hospital02-05-2024 History of Present illness Narrative* Ivette Grimes MD - 12/09/2023 5:29 PM EST Patient presents with: Diabetes HPI: Patient presents today for office visit for follow up. Hb was ok per [facility] lab Still has menses. DM:not checking. Sugars [...] for 180 days. Take one poqhs Ipratropium [place] (ATROVENT) 21 mcg (0.03 %) nasal spray [...] 1 Each by INTRAUTERINE route as directed. [place]-3 Fatty Acids (FISH OIL) 500 mg cap Take 1 capsule by mouth once daily. blood sugar diagnostic (BLOOD GLUCOSE TEST) test strip Test blood sugar(s) 1 times daily. Dx: Type 2 DM - Controlled E11.9 Insulin: Yes Lancets lancets Test blood sugar(s) 1 times daily. Dx: Type 2 DM - Controlled E11.9 Insulin: No Frolvjct-Bs-Wvm-Fe-FA tab Take 1 tablet by mouth once [...] Age of Onset Alcohol/Drug Mother Heart Father IA Cancer Father PANCREATIC CANCER Diabetes Father Coronary [...] and recommended the following in detail. Covid-19 Vaccine() due on 07/05/2023 Diabetic Foot Exam-checked in [...] - stable. Ivette Grimes documented in this encounterPromedica Fostoria Community Hospital12-24-2023 Discharge summary Author Luan Zepeda [facility] October 27, 2023 3:44pm Note Date/Time October 27, 2023 3:16pm [facility] Medical Records Department [address] [place] [address] Emergency Department Summary 10/27/23 MR#: [id number] Acct: [id number] Name: TORI GRAY Rep #:[id number] : 1980 43 From: Luan Barry PCP: Dr. Ivette Grimes MD Status:PRE E R Location: ED HPI History of Present Illness Chief Complaint: [facility] Medical History Abnormal ECG Acute bronchitis Acute [...] %) nasal spray 2 spray intranasal BID vjanojcbn96/20/20 [History Last Taken 08/03/23] omega-3 fatty acids [...] problems, contact your Primary Care Provider. Call [facility] ([phone]) or report to the closest Emergency Room. Call 911 if necessary. 10/27/23 0834 <Electronically signed by Luan Zepeda DO> Cosigner Signature (if applicable): CC: Dr. Ivette Grimes MD ~ Signed [facility] Work Phone: 1(221) 727-213412-12-2023 Miscellaneous Notes* Telephone Encounter - Fatuma Beckford PA-C - 10/15/2023 8:13 AM EST Patient was given three month supply on 09/13/23 documented in this encounterPromedica Fostoria Community Hospital12-11-2023 Miscellaneous Notes* Telephone Encounter - Quinn Lazo - 10/14/2023 1:43 PM EST Patient phones requesting refills as follows: Requested Prescriptions Pending Prescriptions Disp Refills topiramate (TOPAMAX) 100 mg tablet 60 tablet 5 Sig: Take 1 tablet by mouth two times a day. APRIL 07/15/23 NOV 12/09/23 Please review and advise. Quinn Lazo documented in this encounterPromedica Fostoria Community Hospital12-11-2023 Miscellaneous Notes* Telephone Encounter - Adriana Swanson [...] (Not on refill list). Please send to [facility] pharmacy. TY documented in this encounterPromedica Fostoria Community Hospital11-21-2023 Miscellaneous Notes* Telephone Encounter - Ry Wang - 09/24/2023 8:20 AM EST Patient's request for medication is as follows: Requested Prescriptions Pending Prescriptions Disp Refills FLUoxetine (PROZAC) 20 mg capsule 90 capsule 0 Sig: Take 1 capsule by mouth once daily. Prescription(s) as above. Please process accordingly. Ry Wang documented in this [facility]11-06-2023 Miscellaneous Notes* Telephone Encounter - Quinn Lazo - 09/09/2023 1:21 PM EST Patient phones requesting refills as follows: Requested Prescriptions Pending Prescriptions Disp Refills ZOLMitriptan (ZOMIG) 5 mg tablet 9 tablet 11 Sig: Take 1 tablet (5 mg) by mouth once daily. prn APRIL 07/15/23 NOV 12/09/23 Please review and advise. Quinn Lazo documented in this [facility]10-23-2023 Miscellaneous Notes* Telephone Encounter - Nakia Caraballo RN - 08/26/2023 11:58 AM EDT Patient scheduled for 09/13/23 at 2 pm for botox. Latonia Caraballo RN, BSN documented in this [facility]10-20-2023 Miscellaneous Notes* Telephone Encounter - Nirmala Storey LPN - 08/23/2023 2:40 PM EDT Completed and faxed as requested. * Telephone Encounter - Dennise Robles - 08/20/2023 11:55 AM EDT Type of form: 2022 Healthy living program Form received via mail When form is completed, Fax form to [phone] Form has been forwarded to Physician Desk: Dr. Sydney Robles documented in this encounterPromedica Fostoria Community Hospital09-01-2023 Miscellaneous Notes* Telephone Encounter - Quinn Lazo LPN - 07/05/2023 1:44 PM EDT Patient phones requesting refills as follows: Requested Prescriptions Pending Prescriptions Disp Refills albuterol HFA (VENTOLIN HFA) 90 mcg/actuation inhaler 18 g 6 Sig: Inhale 2 Puffs as instructed every 4 hours as needed for wheezing/shortness of breath. APRIL 06/06/23 NOV 12/09/23 Please review and advise. Quinn Lazo LPN documented in this encounterPromedica Fostoria Community Hospital09-01-2023 Miscellaneous Notes* Telephone Encounter - Jenni Zaman - 07/05/2023 8:25 AM EDT Patient has been identified by name and date of : Yes, Provider [facility] Pharmacy phones for refill(s): Requested Prescriptions Pending [...] Thank you. Jenni Zaman documented in this encounterPromedica Fostoria Community Hospital08-16-2023 History of Present illness Narrative* Rosetta Dias LPN - 06/19/2023 4:[address] Delgado, Tori was provided with powerstep original inserts, size 11, and instructed/educated in its application, wear, and care. All questions were answered, and patient was able to demonstrate competence with the necessary skills to utilize the above equipment. Per Dr. Delgado, Tori was provided with achilles gel sleeve, size [...] mouth every 8 hours as needed. Ipratropium [place] (ATROVENT) 21 mcg (0.03 %) nasal spray [...] 1 Each by INTRAUTERINE route as directed. [place]-3 Fatty Acids (FISH OIL) 500 mg cap Take 1 capsule by mouth once daily. Lancets lancets Test blood sugar(s) 1 times daily. Dx: Type 2 DM - Controlled E11.9 Insulin: No Lpwxijzz-Lg-Dkk-Fe-FA tab Take 1 tablet by mouth once [...] Age of Onset Alcohol/Drug Mother Heart Father IA Cancer Father PANCREATIC CANCER Diabetes Father Coronary [...] resection MARK Stein DPM Podiatry [address] [facility] [address] Dept: [phone] Dept * Keri Parker RN - 06/19/2023 [...] developed left foot pain documented in this encounterPromedica Fostoria Community Hospital08-16-2023 Instructions* Patient Instructions* Umesh Delgado - 06/19/2023 [...] time on their feet, such as nurses, doweling machine operator/waiters, andmail carriers, often experience plantar fasciitis. Athletes [...] choose the one that fits the best. [place] with your athletic shoes to find a [...] Powerstep Original Full length. Can purchase at [employer] here in [place], [employer] in [place] or [place]. Also can find in [place] in [facility]. Powersteps can also be purchased [...] everything fits well together documented in this encounterPromedica Fostoria Community Hospital08-04-2023 History of Present illness Narrative* Ivette Mejia [...] are patent. Note that pt did see Wilian Beckford PA-C during the interim on 03/05/23: [...] migraine, would like to go back to [place], noted that I do botox in this location and patient would like to transfer. EEG completed 04/02/23 at [facility] and per report, normal. Pt reports that [...] fall but has messed up disks anyway. was at chiropractor yesterday with images unremarkable [...] 2 weeks ago - was working at [employer] and tubs of butter fell and hit her on the right side of the head. Pt states hurt the next day but then felt better. Did not seek medical attention. But then states went to [facility] ER where they did a CT scan that was ok per pt. YUAN history inconsistent with that reported to Wilian Beckford on 05/17/23. Denies depression or anxiety. [...] mouth every 8 hours as needed. Ipratropium [place] (ATROVENT) 21 mcg (0.03 %) nasal spray [...] 2 DM - Controlled E11.9 Insulin: No Rhpnzsjh-Hb-Xwz-Fe-FA tab Take 1 tablet by mouth once daily. FLUoxetine (PROZAC) 20 mg capsule Take 1 capsule by mouth once daily. [place]-3 Fatty Acids (FISH OIL) 500 mg cap [...] Age of Onset Alcohol/Drug Mother Heart Father IA Cancer Father PANCREATIC CANCER Diabetes Father Coronary [...] today that contradicts what was reported to Wilian IRENE during recent botox visit. Regarding memory [...] time. Follow up after evaluation by neuro [facility]. Ivette Mejia MD I spent a total of 42 minutes on the date of the service which included preparing to see the patient, tfhf-lv-jlya patient care, completing clinical documentation, obtaining and/or [...] of your PCP/referring physician. documented in this encounterCleveland [id number] History of Present illness Narrative* Ivette Grimes [...] mouth every 8 hours as needed. Ipratropium [place] (ATROVENT) 21 mcg (0.03 %) nasal spray [...] 1 Each by INTRAUTERINE route as directed. [place]-3 Fatty Acids (FISH OIL) 500 mg cap Take 1 capsule by mouth once daily. blood sugar diagnostic (BLOOD GLUCOSE TEST) test strip Test blood sugar(s) 1 times daily. Dx: Type 2 DM - Controlled E11.9 Insulin: Yes (Patient not taking: Reported on 05/28/2023) Lancets lancets Test blood sugar(s) 1 times daily. Dx: Type 2 DM - Controlled E11.9 Insulin: No Oujynlvh-Tn-Tfm-Fe-FA tab Take 1 tablet by mouth once [...] Age of Onset Alcohol/Drug Mother Heart Father IA Cancer Father PANCREATIC CANCER Diabetes Father Coronary [...] RTO in six months documented in this encounterPromedica Fostoria Community Hospital07-26-2023 History of Present illness Narrative* Isiah Funes APRN.CNP - 05/29/2023 4:38 PM EDT Boot provided, see yesterdays addended noted. documented in this encounterPromedica Fostoria Community Hospital07-26-2023 Miscellaneous Notes* Telephone Encounter - Priscila France [...] boot. Please call Pt. documented in this encounterPromedica Fostoria Community Hospital07-17-2023 Discharge summary Author Sam Pearl [facility] May 20, 2023 10:36pm Note Date/Time May 20, 2023 10:3 6pm [facility] Medical Records Department [address] [place] [address] Emergency Department Summary 05/20/23 MR#: [id number] Acct: [id number] Name: TORI GRAY Rep #:[id number] : 1980 42 From: Sam Pearl MD PCP: Dr. Ivette Grimes MD Status:PRE E R Location: ED HPI History of Present Illness Chief Complaint: Head Injury Informant: patient Onset/Context/Timing Onset: Hours (1.5) Mechanism/Context: Blunt Injury Narrative Narrative: Patient states she was working at a [employer], it was almost closing time, she was [...] are now made worse since this injury. [facility] Medical History Abnormal ECG Acute bronchitis Acute [...] #10 ea 04/26/20 [History Last Taken Unknown] kvpeubdy-efa-Wa-FA 1 mg capsule 1 cap PO DAILY [...] restrictions temporarily. NEXUS Head CT Instrument from [employer] on 05/20/2023 All calculations should be rechecked [...] Age >=5 years ?> 0 = No [place] CT Head Injury/Trauma Rule from [employer] on 05/20/2023 All calculations should be rechecked by clinician prior to use RESULT SUMMARY: CT Unnecessary The [place] Head CT Rule suggests a head CT [...] consciousness Instructions: ED Concussion Prescriptions: No Action aizmfpop-lwc-Ka-FA 1 mg capsule 1 mg capsule 1 [...] your Primary Care Provider. Call [facility] ([phone]) or report to the closest Emergency Room. Call 911 if necessary. 05/20/232235 <Electronically signed by Sam Pearl MD> [facility] Hospitalign Signature (if applicable): CC: Dr. Ivette Grimes MD ~ Signed [facility] Work Phone: [phone]) 911-844607-14-2023 Instructions* Patient Instructions* Fatuma Beckford PA-C - [...] office for further instructions. documented in this encounterPromedica Fostoria Community Hospital07-14-2023 History of Present illness Narrative* Fatuma Beckford [...] SpO2 97% BMI 45.58 kg/m Patient name: Jemmabree Love Isaac : 1980 ALLERGIES Allergen Reactions Lidocaine Hives Steroids [Betametha* Hives UNIVERSAL PROTOCOL / SAFETY CHECKLIST Procedure: Onabotulinum toxin A for migraine Informed Consent Consent Obtained: Written [place] Protocol A moment to CARE was completed [...] applicable Written Consent Obtained: Written LOT #: [id number] Expiration Date: Month: Year: 2024 Second vial: LOT #: [id number] Expiration Date: Month: 6 Year: 2024 Injection Sites Left (Units) Left (Sites) Right (Units) Right (Sites) TOTAL (Units) Nurse Researcher 5 1 5 1 10 Procerus Units: [...] therapy. Fatuma Beckford PA-C documented in this encounterPromedica Fostoria Community Hospital07-05-2023 Miscellaneous Notes* Telephone Encounter - Lubna Yoon [...] you. Lubna Yoon LPN documented in this encounterPromedica Fostoria Community Hospital06-02-2023 Miscellaneous Notes* Telephone Encounter - Nirmala Storey [...] patient. Nirmala Storey LPN documented in this encounterPromedica Fostoria Community Hospital05-17-2023 Miscellaneous Notes* Telephone Encounter - Nakia Caraballo RN - 03/20/2023 12:38 PM EDT Botox renewal sent to pharmacy. Will schedule at [place] once approved. Patient due 04/22/23. [facility] unchecked. Latonia Caraballo RN documented in this encounterPromedica Fostoria Community Hospital05-08-2023 Miscellaneous Notes* Telephone Encounter - Nakia Caraballo RN - 03/11/2023 11:01 AM EDT Patient is not due for botox until 04/22/23. Asked her which location she prefers so we can scheduleonce approved. Latonia Caraballo RN documented in this encounterPromedica Fostoria Community Hospital05-02-2023 Instructions* Patient Instructions* Fatuma Beckford PA-C - 03/05/2023 1:02 PM EDT Continue regimen Reach out with any new symptoms or worsening weakness Reach out to Karen about moving botox Follow up with sleep provider in three months documented in this encounterPromedica Fostoria Community Hospital05-02-2023 History of Present illness Narrative* Fatuma Beckford [...] 2. Gets botox for migraines with [facility]. Patient sustained fall and head injury 11/24/22 [...] Each by INTRAUTERINE route as directed. Ipratropium [place] (ATROVENT) 0.03 % nasal spray Use 2 Sprays in the nose every 12 hours. [place]-3 Fatty Acids (FISH OIL) 500 mg cap Take 1 capsule by mouth once daily. blood sugar diagnostic (BLOOD GLUCOSE TEST) test strip Test blood sugar(s) 1 times daily. Dx: Type 2 DM - Controlled E11.9 Insulin: Yes Lancets lancets Test blood sugar(s) 1 times daily. Dx: Type 2 DM - Controlled E11.9 Insulin: No Gekcenon-Ol-Otr-Fe-FA tab Take 1 tablet by mouth once daily. HISTORIES PAST MEDICAL HISTORY Diagnosis Date Acute cholecystitis Cholecystitis Anxiety 06/07/2014 Chronic back pain Kidney stones LETITIA treated with BiPAP Type 2 diabetes mellitus (HCC) FAMILY HISTORY Problem Relation Age of Onset Alcohol/Drug Mother Heart Father IA Cancer Father PANCREATIC CANCER Diabetes Father Coronary [...] dysarthria; comprehension, naming, repetition intact. Short and jail memory intact. CN: PERRL, EOMI and without [...] migraine, would like to go back to [place], noted that I do botox in this [...] which included preparing to see the patient, xuwf-yk-eisp patient care, completing clinical documentation, obtaining and/or reviewing separately obtained history, performing a medically appropriate examination, counseling and educating the pat ient/family/caregiver, and ordering medications, tests, or procedures. This document has been created with the use of voice recognition technology. It may contain inaccuracies: (e.g. misspellings, inaccurate syntax or word sense) that have escaped review. 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 Please advise pt. Pharmacy is [facility]. Cary Goldsmith LPN documented in this encounterPromedica Fostoria Community Hospital04-28-2023 History of Present illness Narrative* Ivette Mejia [...] appointment. Ivette Mejia MD documented in this encounterPromedica Fostoria Community Hospital04-28-2023 Miscellaneous Notes* Telephone Encounter - Anni Sauceda Pss - 03/01/2023 9:54 AM EDT PCP requesting the patient have a follow-up with MIKE. Spoke with the patient and she wasn't able to take the time available. The patient is scheduled for a follow-up appointment with the PA. The patient is aware of the appointment. documented in this encounterPromedica Fostoria Community Hospital04-27-2023 History of Present illness Narrative* Ivette Grimes [...] Each by INTRAUTERINE route as directed. Ipratropium [place] (ATROVENT) 0.03 % nasal spray Use 2 Sprays in the nose every 12 hours. metroNIDAZOLE (METROGEL) 0.75 % Topical Gel Apply to affected area twice daily. [place]-3 Fatty Acids (FISH OIL) 500 mg cap Take 1 capsule by mouth once daily. blood sugar diagnostic (BLOOD GLUCOSE TEST) test strip Test blood sugar(s) 1 times daily. Dx: Type 2 DM - Controlled E11.9 Insulin: Yes Lancets lancets Test blood sugar(s) 1 times daily. Dx: Type 2 DM - Controlled E11.9 Insulin: No Mkewcrnu-Lt-Qnu-Fe-FA tab Take 1 tablet by mouth once [...] Age of Onset Alcohol/Drug Mother Heart Father IA Cancer Father PANCREATIC CANCER Diabetes Father Coronary [...] BLD Ivette Grimes MD documented in this encounterPromedica Fostoria Community Hospital04-27-2023 History of Present illness Narrative* Perez, Juliana, RT(R) - 02/28/2023 8:00 AM EDT Radiology Service [...] IV DATA: Not applicable SIGNED BY: RT Fabiana(R) February 28, 2023 8:53 AM documented in this encounterPromedica Fostoria Community Hospital04-26-2023 Miscellaneous Notes* Telephone Encounter - Mirna Santos [...] the provider could send her something to [facility] pharmacy just to take for tomorrow. Please call and advise. documented in this encounterPromedica Fostoria Community Hospital04-24-2023 Miscellaneous Notes* Telephone Encounter - Adriana Swanson [...] 02/28/23 Adriana Swanson MA documented in this encounterPromedica Fostoria Community Hospital04-14-2023 History of Present illness Narrative* Grace Coronel APRN.TRANSFER PROFESSOR - 02/15/2023 3:32 PM EDT Images from [...] visit. Either the patient or their legal reimbursement representative has been informed of the risks [...] has been seeing a counselor at the [facility]. Has been working with him every 3 [...] which included preparing to see the patient, pkfl-oa-wdyl patient care, completing clinical documentation, and counseling and educating the patient/family/caregiver, ordering medications/labs, and communicating with other healthcare providers. Grace Coronel APRN.GABRIELA February 15, 2023 3:32 PM This note was partially generated using [employer] voice recognition system. Note was reviewed for accuracy. There may be minor misspellings or grammar miscues with [employer] voice recognition. documented in this encounterPromedica Fostoria Community Hospital04-12-2023 Miscellaneous Notes* Telephone Encounter - Nirmala Storey LPN - 02/13/2023 5:54 PM EDT [employer] message sent to patient. * Telephone Encounter [...] of US head/neck soft tissue received from [facility] via fax. Results scanned into Epic. (May takea few minutes before viewable in Epic.) Quinn Lazo LPN documented in this encounterPromedica Fostoria Community Hospital04-10-2023 Miscellaneous Notes* Telephone Encounter - Quinn Lazo LPN - 02/11/2023 1:15 PM EDT Patient phones requesting refills as follows: Requested Prescriptions Pending Prescriptions Disp Refills tiZANidine (ZANAFLEX) 4 mg tablet 20 tablet 0 Sig: Take 1 tablet by mouth every 8 hours as needed. APRIL 01/31/23 NOV 02/28/23 Please review and advise. Quinn Lazo LPN documented in this encounterPromedica Fostoria Community Hospital03-30-2023 Miscellaneous Notes* Telephone Encounter - Juliana Murphy Ma - 01/31/2023 10:31 AM EDT Faxed order to [facility] per patient's request * Telephone Encounter - Ivette Grimes MD - 01/31/2023 9:44 AM EDT While here patient has noted an intermittent lump in left neck. Slightly sore to touch. Comes andgoes. Is a nonspecific swelling on left posterior neck. Not sure is related to her fall. Will run throughregular us. Set up us at [facility]. Will run through regular insurance. documented in this encounterPromedica Fostoria Community Hospital03-30-2023 History of Present illness Narrative* Ivette Grimes [...] Each by INTRAUTERINE route as directed. Ipratropium [place] (ATROVENT) 0.03 % nasal spray Use 2 Sprays in the nose every 12 hours. metroNIDAZOLE (METROGEL) 0.75 % Topical Gel Apply to affected area twice daily. [place]-3 Fatty Acids (FISH OIL) 500 mg cap Take 1 capsule by mouth once daily. blood sugar diagnostic (BLOOD GLUCOSE TEST) test strip Test blood sugar(s) 1 times daily. Dx: Type 2 DM - Controlled E11.9 Insulin: Yes Lancets lancets Test blood sugar(s) 1 times daily. Dx: Type 2 DM - Controlled E11.9 Insulin: No Xkddkldl-Oc-Cch-Fe-FA tab Take 1 tablet by mouth once [...] Age of Onset Alcohol/Drug Mother Heart Father IA Cancer Father PANCREATIC CANCER Diabetes Father Coronary [...] above. Ivette Grimes MD documented in this encounterPromedica Fostoria [facility] Hospital03-23-2023 NoteHNO ID: [id number] Author: Gloria Oh MA Service: ? Author Type: Family Support Specialist Type: Progress Notes Filed: 01/24/2023 11:07 AM [...] suicidal ideas. The patient is not nervous/anxious.[facility]03-23-2023 History of Present illness Narrative* Gloria Oh [...] not included. [facility] Name: Tori Gray : 1980 Purpose: Follow-up, discuss SPRINT Today's Date: 01/24/2023 Last Visit: 11/08/2022 (OV LEAD GENERATION SPECIALIST) Chief complaint: LEFT shoulder pain Tori Gray [...] external rotation Special Tests: Non-painful (negative) Zac-Alexandra Ji'blanca Neuro-Lower: Neural Tension Signs: Negative slump in [...] was advised that they will need a dray driver for after the procedure and that if no dray driver is available and on site at the time of the procedure, the procedure will be cancelled. For any anticoagulants, the patient was advised on whether to continue or hold for this procedure. The patient expressed understanding and gave verbal consent to proceed. Medications: Refill: Continue Gabapentin as directed (PCP manages) Functional Yarsanism: Continue PT and TENs unit for pain [...] medical decision making from today's date. Elle COOKA [facility] documented in this encounterPromedica Fostoria Community Hospital03-21-2023 Instructions* Patient Instructions* Jenni Ledesma APRN.GABRIELA - 01/22/2023 11:47 AM EDT Botox Home [...] the next 5 days. documented in this encounterPromedica Fostoria Community Hospital03-21-2023 History of Present illness Narrative* Karen Bansal [...] for migraine Informed Consent Consent Obtained: Written [place] Protocol A moment to CARE was completed [...] applicable Written Consent Obtained: Written LOT #: [id number] Expiration Date: Month: 3 Year: 2024 Second vial: LOT #: [id number] Expiration Date: Month: 3 Year: 2024 Injection Sites Left (Units) Left (Sites) Right (Units) Right (Sites) TOTAL (Units) Nurse Researcher 5 1 5 1 10 Procerus Units: [...] Amitriptyline Propranolol Topiramate/ Trokendi XL Jenni Ledesma APRN.TRANSFER PROFESSOR Attestation: I have reviewed the clinical details [...] highlighting my impression and recommendations. Karen Bansal APRN.TRANSFER PROFESSOR documented in this encounterPromedica Fostoria Community Hospital03-16-2023 History of Past illness Narrative* Problem Noted [...] of this encounter (statuses as of 12/10/2023) [facility] History of Past illness Narrative* Problem Noted [...] of this encounter (statuses as of 12/10/2023) [facility] History of Past illness Narrative* Problem Noted [...] of this encounter (statuses as of 12/26/2023) [place] [address]-16-2023 History of Past illness Narrative* Problem Noted [...] of this encounter (statuses as of 01/02/2024) [facility] History of Past illness Narrative* Problem Noted [...] of this encounter (statuses as of 01/15/2024) [facility] History of Past illness Narrative* Problem Noted [...] of this encounter (statuses as of 01/23/2024) [facility]03-[facility] History of Present illness Narrative* Ivette Grimes [...] to return to her second job at [employer] for one night and 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 She feels like the back of her neck feels off. No cough or congestion. No sore throat or fever. Had a cold last week. Now better. MRI still not approved. She spoke with workers [employer] who states a C9 needs completed specifically [...] Each by INTRAUTERINE route as directed. Ipratropium [place] (ATROVENT) 0.03 % nasal spray Use 2 Sprays in the nose every 12 hours. [place]-3 Fatty Acids (FISH OIL) 500 mg cap Take 1 capsule by mouth once daily. blood sugar diagnostic (BLOOD GLUCOSE TEST) test strip Test blood sugar(s) 1 times daily. Dx: Type 2 DM - Controlled E11.9 Insulin: Yes Lancets lancets Test blood sugar(s) 1 times daily. Dx: Type 2 DM - Controlled E11.9 Insulin: No Jxccsvkg-Gc-Dyt-Fe-FA tab Take 1 tablet by mouth once [...] Age of Onset Alcohol/Drug Mother Heart Father IA Cancer Father PANCREATIC CANCER Diabetes Father Coronary [...] S19.9XXD Ivette Grimes MD documented in this encounterPromedica Fostoria [facility] Hospital03-14-2023 NoteHNO ID: [id number] Author: Elle Sanchez MD Service: ? Author Type: Physician Type: Progress Notes Filed: 01/24/2023 11:07 AM Note Text: [facility] [place] [facility] Name: Tori Gray : 1980 Purpose: Follow-up, discuss SPRINT Today's Date: 01/24/2023 Last Visit: 11/08/2022 (OV LEAD GENERATION SPECIALIST) Chief complaint: LEFT shoulder pain Tori Gray [...] Motion: Normal Scapulothoracic (more content not included)...[facility]03-10-2023 Miscellaneous Notes* Telephone Encounter - Nirmala Storey LPN - 01/11/2023 4:42 PM EST Request is closed. An override is in effect until 01/09/24. * Telephone Encounter - Mirna Santos Ma - 01/08/2023 4:55 PM EST PA was submitted through rx benefits Mirna Santos Ma documented in this encounterPromedica Fostoria Community Hospital03-09-2023 Miscellaneous Notes* Telephone Encounter - Nirmala Storey [...] patient. Nirmala Storey LPN documented in this encounterPromedica Fostoria Community Hospital03-03-2023 History of Present illness Narrative* Ivette Grimes [...] Each by INTRAUTERINE route as directed. Ipratropium [place] (ATROVENT) 0.03 % nasal spray Use 2 Sprays in the nose every 12 hours. metroNIDAZOLE (METROGEL) 0.75 % Topical Gel Apply to affected area twice daily. [place]-3 Fatty Acids (FISH OIL) 500 mg cap Take 1 capsule by mouth once daily. blood sugar diagnostic (BLOOD GLUCOSE TEST) test strip Test blood sugar(s) 1 times daily. Dx: Type 2 DM - Controlled E11.9 Insulin: Yes Lancets lancets Test blood sugar(s) 1 times daily. Dx: Type 2 DM - Controlled E11.9 Insulin: No Vktsbcmz-Hp-Azr-Fe-FA tab Take 1 tablet by mouth once [...] Age of Onset Alcohol/Drug Mother Heart Father IA Cancer Father PANCREATIC CANCER Diabetes Father Coronary [...] R51.9 Ivette Grimes MD documented in this encounterPromedica Fostoria Community Hospital02-28-2023 Miscellaneous Notes* Telephone Encounter - Juliana Murphy Ma - 01/01/2023 3:02 PM EST Patient never checked in for her appointments as workers comp. Sent visits to [facility] to have C9 created and faxed [...] Dr. Grimes to review C-9 and resubmit. Hailye Leone LPN documented in this encounterPromedica Fostoria Community Hospital02-23-2023 Miscellaneous Notes* Telephone Encounter - Anni Sauceda Pss - 12/27/2022 2:22 PM EST Received the [facility] C9 form. The patient was seen on 12/07/2022. The appointment was attached to the patient's insurance not a WC claim. Spoke with the patient and was given the information. PCP Dr. Grimes is the physican of records per the patient. Claim# [id number] Date of injury: 11/24/2022 Nolberto Walden RN [phone] Case management: Cristina # [phone] Left Cristina a message to fax information and to call the office. Requested WC report and DX allowed * Telephone Encounter - Jovana Blackwell MA - 12/26/2022 2:12 PM EST Spoke to [employer]. Will send OV note to complete authorization of MRI order/payment of visit to [phone]. [employer] is sending c9 form for provider to complete. Gave form to Anni Sauceda per Dr. Mejia's instructions. Jovana Blackwell MA * Telephone Encounter - Jovana Blackwell MA - 12/25/2022 10:18 AM EST TC to [employer]. Unable to reach. Left detailed message on VM to return call to office & ask for atriage nurse. Please transfer to neurology back line at ext. [phone]. Jovana Blackwell MA * Telephone Encounter - Marilynn Frank LPN - 12/24/2022 3:28 PM EST Patient calling said her MRI's need to be prior authorized with [employer]. Person name is lawrence number is [phone] works 8 am to 430 pm and fax number is [phone]. Patient claim number is [id number]. documented in this encounterPromedica Fostoria Community Hospital02-22-2023 Miscellaneous Notes* Telephone Encounter - Quinn Lazo LPN - 12/26/2022 11:41 AM EST Patient phones requesting refills as follows: Requested Prescriptions Pending Prescriptions Disp Refills tiZANidine (ZANAFLEX) 4 mg tablet 20 tablet 0 Sig: Take 1 tablet by mouth every 8 hours as needed. APRIL 12/26/22 NOV 01/04/23 Please review and advise. Quinn Lazo LPN documented in this encounterPromedica Fostoria Community Hospital02-22-2023 History of Present illness Narrative* Ivette Grimes [...] Each by INTRAUTERINE route as directed. Ipratropium [place] (ATROVENT) 0.03 % nasal spray Use 2 [...] 2 DM - Controlled E11.9 Insulin: No Ksegpaxh-Lh-Kss-Fe-FA tab Take 1 tablet by mouth once daily. [place]-3 Fatty Acids (FISH OIL) 500 mg cap [...] Age of Onset Alcohol/Drug Mother Heart Father IA Cancer Father PANCREATIC CANCER Diabetes Father Coronary [...] until 01/07. 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 Recheck in one week. 2. Essential (primary) hypertension - ICD9: 401.9, ICD10: I10 - good control - Continue current medication(s) - Goal of BP <130/80 Ivette Grimes MD documented in this encounterPromedica Fostoria Community Hospital02-20-2023 Miscellaneous Notes* Telephone Encounter - Nakia Caraballo RN - 12/24/2022 5:22 PM EST Last OV: 07/19/22 Last Refill: 08/03/22 FU OV: 01/22/23 Appropriate for refill routed to for review Latonia Caraballo RN documented in this encounterPromedica Fostoria Community Hospital02-10-2023 History of Present illness Narrative* Ivette Grimes [...] waiting to schedule those. Conflicts over at [facility] with workers comp. Injury that prompted symptoms [...] Each by INTRAUTERINE route as directed. Ipratropium [place] (ATROVENT) 0.03 % nasal spray Use 2 Sprays in the nose every 12 hours. metroNIDAZOLE (METROGEL) 0.75 % Topical Gel Apply to affected area twice daily. [place]-3 Fatty Acids (FISH OIL) 500 mg cap [...] 2 DM - Controlled E11.9 Insulin: No Ffevojdg-Ua-Erp-Fe-FA tab Take 1 tablet by mouth once [...] Age of Onset Alcohol/Drug Mother Heart Father IA Cancer Father PANCREATIC CANCER Diabetes Father Coronary [...] RTO in two weeks. documented in this encounterPromedica Fostoria Community Hospital02-07-2023 Miscellaneous Notes* Telephone Encounter - Ingrid Salmon Ma - 12/11/2022 9:55 AM EST Last office visit: 12/07/22 F/u scheduled: 12/14/22 Ingrid Salmon Ma documented in this encounterPromedica Fostoria Community Hospital02-03-2023 History of Present illness Narrative* Ivette Grimes [...] view their previous records. documented in this encounterPromedica Fostoria Community Hospital02-03-2023 History of Present illness Narrative* Ivette Mejia [...] BP. Check CMP and CBC due to jail med use. 3. LETITIA (obstructive sleep apnea) [...] when sleepy. 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 Patient now referred for NEW complaint of head trauma. ER notes and PCP notes reviewed. Per PCP note of 11/27/22: Patient presents today for office visit for ER F/U from [facility] 11/24/22. Head injury after fall. Cleaning bed [...] Appears pt had CT brain x2 at [facility] that were both unremarkable. Pt also previously referred to headache center to perform botox -- scheduled to get injections by January 2023. Note records show that pt has seen cards (EP) for QT prolongation concerns. Pt states on 11/24/22 was working at [facility] was doing a discharge, when bedside rail [...] Each by INTRAUTERINE route as directed. Ipratropium [place] (ATROVENT) 0.03 % nasal spray Use 2 Sprays in the nose every 12 hours. blood sugar diagnostic (BLOOD GLUCOSE TEST) test strip Test blood sugar(s) 1 times daily. Dx: Type 2 DM - Controlled E11.9 Insulin: Yes Lancets lancets Test blood sugar(s) 1 times daily. Dx: Type 2 DM - Controlled E11.9 Insulin: No Uwogbaxk-Lm-Wwl-Fe-FA tab Take 1 tablet by mouth once daily. metroNIDAZOLE (METROGEL) 0.75 % Topical Gel Apply to affected area twice daily. (Patient not taking: Reported on 12/07/2022) [place]-3 Fatty Acids (FISH OIL) 500 mg cap Take 1 capsule by mouth once daily. (Patient taking differently: Take 1 tablet by mouth once daily. 1200 mg) HISTORIES PAST MEDICAL HISTORY Diagnosis Date Acute cholecystitis Cholecystitis Anxiety 06/07/2014 Chronic back pain Kidney stones LETITIA treated with BiPAP Type 2 diabetes mellitus (HCC) FAMILY HISTORY Problem Relation Age of Onset Alcohol/Drug Mother Heart Father IA Cancer Father PANCREATIC CANCER Diabetes Father Coronary [...] which included preparing to see the patient, bkvm-ub-oxnv patient care, completing clinical documentation, obtaining and/or reviewing separately obtained history, performing a medically appropriate examination, counseling and educating the pat ient/family/caregiver, ordering medications, tests, or procedures, and communicating results to thepatient/family/caregiver. documented in this encounterPromedica Fostoria Community Hospital01-31-2023 Miscellaneous Notes* Telephone Encounter - Marilynn Frank LPN - 12/04/2022 9:52 AM EST [place] [facility] calling asking for copy of 11/27/2022 office visit notes and copy of letter off work to be faxed to [phone] with claim number [id number]. Printed and faxed as requested. documented in this encounterPromedica Fostoria Community Hospital01-30-2023 Miscellaneous Notes* Telephone Encounter - Ivette Grimes [...] agreeable. Mechelle Velasquez RN documented in this encounterPromedica Fostoria Community Hospital01-27-2023 History of Present illness Narrative* Ivette Grimes [...] Each by INTRAUTERINE route as directed. Ipratropium [place] (ATROVENT) 0.03 % nasal spray Use 2 Sprays in the nose every 12 hours. metroNIDAZOLE (METROGEL) 0.75 % Topical Gel Apply to affected area twice daily. [place]-3 Fatty Acids (FISH OIL) 500 mg cap [...] 2 DM - Controlled E11.9 Insulin: No Htkrdkmk-Kr-Pqa-Fe-FA tab Take 1 tablet by mouth once [...] Age of Onset Alcohol/Drug Mother Heart Father IA Cancer Father PANCREATIC CANCER Diabetes Father Coronary [...] ICD10: S06.0X9A Ivette Grimes documented in this encounterPromedica Fostoria Community Hospital01-26-2023 Miscellaneous Notes* Telephone Encounter - Elle Sanchez [...] MD, SULEIMAN * Telephone Encounter - Darrion Barahona - 11/29/2022 2:30 PM EST Patient has left a voicemail stating that she had fallen over the weekend and has a concussion. Sheis wondering if she should reschedule her appointment for 12/05/22 with you in [employer] as she is not sure if this will effect her. Please advise. Darrion Shah documented in this encounterPromedica Fostoria Community Hospital01-24-[address] Callejas [facility] November 27, 2022 6:34pm Note Date/Time November 27, 2022 3 :56pm [facility] Medical Records Department [address] [place] [address] Emergency Department Summary 11/27/22 MR#: [id number] Acct: [id number] Name: TORI GRAY Rep #:[id number] : 1980 42 From: Tod Callejas MD [...] other symptoms consistent with a viral illness. [facility] Medical History Acute bronchitis Acute cholecystitis Acute [...] #10 ea 04/26/20 [History Last Taken Unknown] bfzuqsmx-kzz-Ai-FA 1 mg capsule 1 cap PO DAILY [...] concussion Instructions: ED Concussion Prescriptions: No Action qsiywiii-bgh-Hh-FA 1 mg capsule 1 mg capsule 1 [...] your Primary Care Provider. Call [facility] ([phone]) or report to the closest Emergency Room. Call 911 if necessary. 11/27/22 1834 <Electronically signed by Tod Callejas MD> Cosigner Signature (if applicable): CC: Dr. Ivette Grimes MD ~ Signed [facility] Work Phone: 1(195) 761-576601-24-2023 History of Present illness Narrative* Ivette Grimes MD - 11/27/2022 1:48 PM EST Patient presents with: ER F/U HPI: Patient presents today for office visit for ER F/U from [facility] 11/24/22. Head injury after fall. Cleaning bed [...] Each by INTRAUTERINE route as directed. Ipratropium [place] (ATROVENT) 0.03 % nasal spray Use 2 Sprays in the nose every 12 hours. metroNIDAZOLE (METROGEL) 0.75 % Topical Gel Apply to affected area twice daily. [place]-3 Fatty Acids (FISH OIL) 500 mg cap [...] 2 DM - Controlled E11.9 Insulin: No Txvfygmv-Sn-Hre-Fe-FA tab Take 1 tablet by mouth once [...] Age of Onset Alcohol/Drug Mother Heart Father IA Cancer Father PANCREATIC CANCER Diabetes Father Coronary [...] S06.0X9A Ivette Grimes MD documented in this encounterPromedica Fostoria Community Hospital01-20-2023 Miscellaneous Notes* Telephone Encounter - Quinn Lazo LPN - 11/23/2022 9:15 AM EST Patient phones [...] advise. Quinn Lazo LPN documented in this encounterPromedica Fostoria Community Hospital01-12-2023 Miscellaneous Notes* Telephone Encounter - Jumana Harrell LPN - 11/15/2022 8:34 AM EST Patient phones requesting refills as follows: Requested Prescriptions Pending Prescriptions Disp Refills tiZANidine (ZANAFLEX) 4 mg tablet 20 tablet 0 Sig: Take 1 tablet by mouth every 8 hours as needed. APRIL-09/04/22 Labs-09/06/22 NOV-12/06/22 med filled 10/05/22 Please review and advise. Jumana Harrell LPN documented in this [facility]01-05-2023 NoteHNO ID: [id number] Author: Adelina Mason APRN.TRANSFER PROFESSOR Service: ? Author Type: Nurse Practitioner Type: Progress Notes Filed: 11/08/2022 1:55 PM Note Text: [facility] [place] [facility] Today's Date: 11/08/2022 Last Visit: 07/19/22 [...] activity was identified. 11/08/2022 by Adelina Mason APRN.TRANSFER PROFESSOR Allergies: ALLERGIES Allergen Reactions Lidocaine Hives Steroids [...] (primary encounter deepali (more content not included)...[facility] 11-08-2022 NoteHNO ID: [id number] Author: Gloria Oh MA Service: ? Author Type: Family Support Specialist Type: Progress Notes Filed: 11/08/2022 1:55 PM [...] suicidal ideas. The patient is not nervous/anxious.[facility]01-05-2023 Miscellaneous Notes* Telephone Encounter - Vito Mancera [...] No 9. Does this procedure require a dray driver? Yes If yes, has patient been notified that a dray driver is needed and must be present [...] COVID vaccine.) Vito Mancera documented in this encounterPromedica Fostoria Community Hospital01-05-2023 Instructions* Patient Instructions* Adelina Mason APRN.CNP - 11/08/2022 1:54 PM EST Activity as tolerated Use Ice and/or heat as tolerated as needed documented in this encounterPromedica Fostoria Community Hospital01-05-2023 History of Present illness Narrative* Adelina Mason APRN.CNP - 11/08/2022 1:30 PM EST Images from the original note were not included. [facility] [place] [facility] Today's Date: 11/08/2022 Last Visit: 07/19/22 [...] and fevers, chills, or night sweats. Recall: with Vickie Current Status: INTAKE PAIN ASSESSMENT [...] suspiciousactivity was identified. 11/08/2022 by Adelina Mason APRN.TRANSFER PROFESSOR Allergies: ALLERGIES Allergen Reactions Lidocaine Hives Steroids [...] Continue Gabapentin as directed (PCP manages) Functional Yarsanism: Continue PT and TENs unit for pain [...] decision making from today's date. Adelina Mason APRN.TRANSFER PROFESSOR Pain Management [facility] * Gloria Oh MA - 11/08/2022 1:29 [...] patient is not nervous/anxious. documented in this encounterPromedica Fostoria Community Hospital12-09-2022 Instructions* Patient Instructions* Grace Coronel APRN.CNP - [...] - Call the National Suicide Hotline at 4-862-IJSGREL ( ) or 2-995-437-TALK (4529) - Text 7PAED to 079160 Medication Update: - Prozac 10 mg - take 1 capsule once daily for 7 days; then take 2 capsules once daily after that. Next appointment: --Schedule in 4 to 6 weeks or sooner if needed -- You may call the department appointment line at [phone] to schedule your appointment. -- Please call my nurse Coretta at [phone] or send me a message in [employer] with any questions or concerns between appointments. documented in this encounterPromedica Fostoria Community Hospital12-09-2022 History of Present illness Narrative* Grace Coronel APRN.CNP - 10/12/2022 8:37 AM EST Images from [...] her. They get along well. 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 REFERRAL SOURCE: PCP - [...] report that daughter has support from her slip seat coverer and therapist and has been doing better. [...] current PAP mask.) 1 Device 99 Ipratropium [place] (ATROVENT) 0.03 % nasal spray Use 2 Sprays in the nose every 12 hours. 1 Bottle2 metroNIDAZOLE (METROGEL) 0.75 % Topical Gel Apply to affected area twice daily. 45 g 2 [place]-3 Fatty Acids (FISH OIL) 500 mg cap Take 1 capsule by mouth once daily. 30 capsule 11 blood sugar diagnostic (BLOOD GLUCOSE TEST) test strip Test blood sugar(s) 1 times daily. Dx: Type 2 DM - Controlled E11.9 Insulin: Yes 50 Strip 11 Lancets lancets Test blood sugar(s) 1 times daily. Dx: Type 2 DM - Controlled E11.9 Insulin: No 100Each 11 Oxddpoxo-Ki-Ixw-Fe-FA tab Take 1 tablet by mouth once daily. 0 No current facility-administered medications for this visit. VITAL SIGNS: There were no vitals filed for this visit. ROS: All other systems negative. PSYCHIATRIC HISTORY: Prior Diagnosis: Generalized Anxiety Disorder, and Depression Prior Provider: No prior psychiatrist Therapist: Previously followed at the counseling center. Stopped during the pandemic. Current Artillery Maintenance Supervisor: No Last Hospitalization: Denies hospitalization. ECT: No Previous Discontinued Psychiatric Med Trials: Ativan as needed PRN. Paxil, Buspar (low dose), Wellbutrin SUBSTANCE USE HISTORY: Nicotine: None Caffeine: Mert, 1/day Alcohol: No history of use or dependence Marijuana: No history of use or dependence Cocaine: No history of use or dependence Opiods: No history of use or dependence SPIRITUALITY: [facility]: Tori Gray is the oldest of 2 siblings. Her brother lives in [place]. The patient was born in [place] and raised in [place], [place]. She completed Associates degree in psychology. [...] which included preparing to see the patient, xkhu-fo-xxnj patient care, completing clinical documentation, obtaining and/or reviewing separately obtained history, counseling and educating the patient/family/caregiver, ordering medications, ananth ts, or procedures, communicating with other HCPs (not separately reported), and independently interpreting results (not separately reported). ADD ON PSYCHOTHERAPY CODE : No SIGNATURE: Grace Coronel APRN.CNP PATIENT NAME: Tori Gray DATE: October 12, 2022 TIME: 8:40 AM PAGER : documented in this encounterPromedica Fostoria Community Hospital12-06-2022 Miscellaneous Notes* Telephone Encounter - Mariaa AmbrosioLEVAR - 10/09/2022 8:44 AM EST Patient has been identified by name and date of : Yes Patient phones for refill(s): Requested Prescriptions Pending Prescriptions Disp Refills topiramate (TOPAMAX) 100 mg tablet 60 tablet 2 Sig: Take 1 tablet by mouth twice daily. Date of last office visit in primary care: [facility] 07/19/2022 with Karen Bansal APRN.CNP No appointment scheduled [facility] Notes: Plan: All options for treatment discussed. [...] Thank you. LEVAR Jasmine documented in this encounterPromedica Fostoria Community Hospital12-02-2022 Miscellaneous Notes* Telephone Encounter - Quinn Lazo LPN - 10/05/2022 8:41 AM EST Patient phones requesting refills as follows: Requested Prescriptions Pending Prescriptions Disp Refills tiZANidine (ZANAFLEX) 4 mg tablet 20 tablet 0 Sig: Take 1 tablet by mouth every 8 hours as needed. APRIL 09/04/22 NOV 11/01/22 Please review and advise. Quinn Lazo LPN documented in this encounterPromedica Fost[facility]11-29-2022 Miscellaneous Notes* Telephone Encounter - Adriana Licona - 10/02/2022 11:32 AM EST Patient was called back and spoke with and scheduled with Adelina in [place] beginning of the year. Adriana Licona * Telephone Encounter - Adriana Licona - 10/02/2022 11:22 AM EST Patient called in leaving a voicemail stating she had an appointment with Adelina back in Jul. Insurance denied the RFA and was needing to finds out what else she can do? Adriana Licona documented in this encounterPromedica Fostoria [facility] Hospital11-16-2022 Miscellaneous Notes* Telephone Encounter - Lubna Yoon [...] you. Lubna Yoon LPN documented in this encounterPromedica Fostoria Community Hospital11-09-2022 History of Present illness Narrative* [place] Fine - 09/12/2022 1:57 PM EST BEHAVIORAL HEALTH SOCIAL WORK QUICK NOTE Provider Action/FYI Needs appointment scheduled with Grace Coronel CNP. Will forward chart to Grace and her DERRICK CAR OPERATOR to assist with scheduling. Patient identified for [facility] from: PCP Reason for referral: [facility] Resources: Psychiatry med management;Psychology - talk therapy [facility] encounter type: Chart Review Attempts to Outreach: 1 attempt Referral made: Psychiatry - Internal;Psychology - External;Psychology - Internal Psychiatry-Internal referral type: Medication Management Psychology-Internal referral type: Therapy Psychology-External referral type: Therapy Reason for external referral: Wait times at [facility] too long Final Disposition: Resources given Patient Discharged?: Yes Patient reported that caregiver was able to meet their needs today?: N/A Pt identified by name and . Patient interested in [facility], specifically Grace Coronel CNP at therequest of pt's PCP. SW will route chart to Grace and her nurse, Coretta Spain who can assist with patient scheduling. Patient states she's on a wait list for counseling at agencies near her home. No needs further from this SW at this time. [place] Fine, ACM-PARK documented in this encounterPromedica Fostoria Community Hospital11-09-2022 Miscellaneous Notes* Addendum Note - Ivette Grimes MD - 09/12/2022 1:19 PM ESTAddended by: IVETTE GRIMES on: 09/12/2022 01:19 PM Modules accepted: Orders * Telephone Encounter - Ivette Grimes MD - 09/12/2022 1:18 PM EST Needs set up with Grace documented in this encounterPromedica Fostoria [facility] Hospital11-03-2022 Miscellaneous Notes* Telephone Encounter - Nakia Caraballo RN - 09/06/2022 12:44 PM EDT Patient is scheduled for botox on 09/13/22 at 1:30 pm with Kaylen. Latonia Caraballo RN documented in this encounterPromedica Fostoria Community Hospital11-01-2022 Miscellaneous Notes* Telephone Encounter - Jovana Blackwell MA - 09/04/2022 3:01 PM EDT Clarified with patient [facility] will be receiving 2 new providers able to administer injections. Patient will continue with plan to stay within [facility] for injections & just follow up in [place] when neuro providers are available to schedule. Jovana Blackwell MA documented in this encounterPromedica Fostoria Community Hospital11-01-2022 History of Past illness Narrative* Problem Noted [...] of this encounter (statuses as of 09/04/2022) [facility] of Past illness Narrative* Problem Noted [...] of this encounter (statuses as of 09/04/2022) [facility] of Past illness Narrative* Problem Noted [...] of this encounter (statuses as of 09/06/2022) [facility] of Past illness Narrative* Problem Noted [...] of this encounter (statuses as of 09/07/2022) [facility] Past illness Narrative* Problem Noted [...] of this encounter (statuses as of 09/12/2022) [facility] of Past illness Narrative* Problem Noted [...] of this encounter (statuses as of 09/12/2022) [facility] Past illness Narrative* Problem Noted [...] of this encounter (statuses as of 09/12/2022) [facility] Past illness Narrative* Problem Noted [...] of this encounter (statuses as of 09/19/2022) [facility] Past illness Narrative* Problem Noted [...] of this encounter (statuses as of 10/02/2022) [facility] Past illness Narrative* Problem Noted [...] of this encounter (statuses as of 10/05/2022) [facility] Past illness Narrative* Problem Noted [...] of this encounter (statuses as of 10/09/2022) [facility] illness Narrative* Problem Noted [...] of this encounter (statuses as of 10/18/2022) [facility] Narrative* Problem Noted [...] of this encounter (statuses as of 10/21/2022) [facility] Narrative* Problem Noted [...] of this encounter (statuses as of 11/09/2022) [facility] Narrative* Problem Noted [...] of this encounter (statuses as of 11/15/2022) [facility] illness Narrative* Problem Noted [...] of this encounter (statuses as of 11/21/2022) [facility] Narrative* Problem Noted [...] of this encounter (statuses as of 11/23/2022) [facility] Narrative* Problem Noted [...] of this encounter (statuses as of 11/27/2022) [facility] Narrative* Problem Noted [...] of this encounter (statuses as of 11/29/2022) [facility] Narrative* Problem Noted [...] of this encounter (statuses as of 11/30/2022) [facility] Narrative* Problem Noted [...] of this encounter (statuses as of 12/04/2022) [facility] Narrative* Problem Noted [...] of this encounter (statuses as of 12/08/2022) [facility] Narrative* Problem Noted [...] of this encounter (statuses as of 12/08/2022) [facility] Narrative* Problem Noted [...] of this encounter (statuses as of 12/11/2022) [facility] Narrative* Problem Noted [...] of this encounter (statuses as of 12/11/2022) [facility] Narrative* Problem Noted [...] of this encounter (statuses as of 12/14/2022) [facility] Narrative* Problem Noted [...] of this encounter (statuses as of 12/21/2022) [facility] Narrative* Problem Noted [...] of this encounter (statuses as of 12/25/2022) [facility] Narrative* Problem Noted [...] of this encounter (statuses as of 12/26/2022) [facility] Narrative* Problem Noted [...] of this encounter (statuses as of 12/26/2022) [facility] Narrative* Problem Noted [...] of this encounter (statuses as of 01/04/2023) [facility] Narrative* Problem Noted [...] of this encounter (statuses as of 01/07/2023) [facility] Narrative* Problem Noted [...] of this encounter (statuses as of 01/10/2023) [facility] Narrative* Problem Noted [...] of this encounter (statuses as of 01/11/2023) [facility] Narrative* Problem Noted [...] of this encounter (statuses as of 01/15/2023) [facility] Narrative* Problem Noted [...] of this encounter (statuses as of 01/17/2023) [facility] Narrative* Problem Noted [...] of this encounter (statuses as of 01/22/2023) [facility] Narrative* Problem Noted [...] of this encounter (statuses as of 01/24/2023) [facility] Narrative* Problem Noted [...] 11/22/2021 1 11/04/2021 Numbness of upper extremity 10/10/20212 Obesity, Class III, BMI >= 40 11/26/2019 [...] of this encounter (statuses as of 01/31/2023) [facility] Narrative* Problem Noted [...] of this encounter (statuses as of 01/31/2023) [facility] Narrative* Problem Noted [...] of this encounter (statuses as of 02/11/2023) [facility] Narrative* Problem Noted [...] of this encounter (statuses as of 02/14/2023) [facility] Narrative* Problem Noted [...] of this encounter (statuses as of 02/16/2023) [facility] Narrative* Problem Noted [...] of this encounter (statuses as of 02/25/2023) [facility] Narrative* Problem Noted [...] of this encounter (statuses as of 02/27/2023) [facility] Narrative* Problem Noted [...] of this encounter (statuses as of 02/28/2023) [facility] Narrative* Problem Noted [...] of this encounter (statuses as of 03/01/2023) [facility] Narrative* Problem Noted [...] of this encounter (statuses as of 03/01/2023) [facility] Narrative* Problem Noted [...] of this encounter (statuses as of 03/04/2023) [facility] Narrative* Problem Noted [...] of this encounter (statuses as of 03/05/2023) [facility] Narrative* Problem Noted [...] of this encounter (statuses as of 03/05/2023) [facility] Narrative* Problem Noted [...] of this encounter (statuses as of 03/05/2023) [facility] Narrative* Problem Noted [...] of this encounter (statuses as of 03/13/2023) [facility] Narrative* Problem Noted [...] of this encounter (statuses as of 03/20/2023) [facility] Narrative* Problem Noted [...] of this encounter (statuses as of 03/20/2023) [facility] Narrative* Problem Noted [...] of this encounter (statuses as of 04/05/2023) [facility] Narrative* Problem Noted [...] of this encounter (statuses as of 05/08/2023) [facility] Narrative* Problem Noted [...] of this encounter (statuses as of 05/17/2023) [facility]arrative* Problem Noted [...] of this encounter (statuses as of 05/29/2023) [facility] Narrative* Problem Noted [...] of this encounter (statuses as of 05/30/2023) [facility] Narrative* Problem Noted [...] of this encounter (statuses as of 06/06/2023) [facility] Narrative* Problem Noted [...] 09/30/2018 09/04/2022 Strain of lumbar region 07/02/2017 1111/2021 Routine general medical exam ination at a [...] of this encounter (statuses as of 06/08/2023) [facility] Narrative* Problem Noted [...] of this encounter (statuses as of 06/10/2023) [facility] Narrative* Problem Noted [...] of this encounter (statuses as of 06/22/2023) [facility] Narrative* Problem Noted [...] of this encounter (statuses as of 07/05/2023) [facility] Narrative* Problem Noted [...] of this encounter (statuses as of 07/09/2023) [facility] Narrative* Problem Noted [...] of this encounter (statuses as of 08/23/2023) [facility] Narrative* Problem Noted [...] of this encounter (statuses as of 08/26/2023) [facility] Narrative* Problem Noted [...] of this encounter (statuses as of 09/08/2023) [facility] Narrative* Problem Noted [...] of this encounter (statuses as of 09/10/2023) [facility] Narrative* Problem Noted [...] and lichen simplex chronicus 7 01/23/2010 DERMATOFIBROMA///BENIGN KIALEY SKIN ARM 03/26/2007 01/23/2010 Contact dermatitis and other eczema, due to unspecified cause 03/26/2007 01/23/2010 Transient hypertension of pr egnancy, antepartum 06/19/2006 07/02/2006 Supervision of normal first 11/09/2005 07/02/2006 documented as of this encounter (statuses as of 09/25/2023) [facility] Narrative* Problem Noted [...] of this encounter (statuses as of 10/14/2023) [facility] Narrative* Problem Noted [...] of this encounter (statuses as of 10/15/2023) [facility] Narrative* Problem Noted [...] of this encounter (statuses as of 10/16/2023) [facility] Narrative* Problem Noted [...] of this encounter (statuses as of 12/06/2023) [facility] Instructions* Patient Instructions* Ivette Grimes MD - 09/04/2022 12:13 PM EDT Counseling and Psychiatry Services [facility] [address] [place], [place] [id number] *counseling [facility] [address], [facility] [phone] *counseling [address] [phone] *counseling Counseling [place] [address] [place], [place] [phone] *counseling and psychiatry [address] [address] *counseling [address] [address] *counseling [place] [address] [facility] [address] *counseling [place] [address] [place] [address] *counseling [facility] [address] [place], [place] [phone] [facility] [address] [place] [address], [address] [place] [address] *counseling [facility] [address] [place], [place] [phone] [facility] [address] [place], [place] [address] *counseling [facility] [address] [place] [address] [facility] [address] [facility] [place] [address] *counseling [facility] [address] [place] [address] *counseling [facility] [address] [place], [place] [phone] *counseling and psychiatry [facility], [facility] [address] [place], [place] [address] *psychiatry [facility] [phone] *grief counseling, individual and groups *If you ever experience a mental health crisis please call [phone], [phone], Please verify with insurance provider for coverage Provide services on a sliding fee scale for [facility] residents. [address] [phone] *Counseling [facility] [address] [place], [place] [phone] *Counseling, Psychiatry and Case Management [address] [phone] *Counseling [address] [address] *Counseling [place] [address] [place] [address] *Counseling [place] [address] [place], [place] [phone] *Counseling [facility] [address] [place], [place] [phone] *Counseling/mental health and substance use treatment [facility] [place] [address] [place], [place] [phone] [place] [address] [place], [place] [address] [facility] [address] [facility] [place], [place] [phone] *Addiction services, services for victims of domestic violence and sexual assault, housing services [facility] -safe, alcohol and drug free environment [facility] [phone] *free grief services, individual and group *If you ever experience a mental health crisis please contact [phone], 911 or go to the nearest ER. Please verify with insurance provider for coverage documented in this encounterPromedica Fostoria [facility] Hospital11-01-2022 History of Present illness Narrative* Ivette Grimes [...] for depression. Was seen by cardiology in [place] who referred her to EPS. Appt is [...] in bed with current PAP mask. Ipratropium [place] (ATROVENT) 0.03 % nasal spray Use 2 Sprays in the nose every 12 hours. metroNIDAZOLE (METROGEL) 0.75 % Topical Gel Apply to affected area twice daily. [place]-3 Fatty Acids (FISH OIL) 500 mg cap Take 1 capsule by mouth once daily. blood sugar diagnostic (BLOOD GLUCOSE TEST) test strip Test blood sugar(s) 1 times daily. Dx: Type 2 DM - Controlled E11.9 Insulin: Yes Lancets lancets Test blood sugar(s) 1 times daily. Dx: Type 2 DM - Controlled E11.9 Insulin: No Rmlawpak-Gl-Oro-Fe-FA tab Take 1 tablet by mouth once [...] Age of Onset Alcohol/Drug Mother Heart Father [place] Cancer Father PANCREATIC CANCER Diabetes Father Diabetes [...] treatment. Ivette Grimes MD documented in this encounterPromedica Fostoria Community Hospital10-31-2022 History of Present illness Narrative* Ivette Grimes [...] in bed with current PAP mask. Ipratropium [place] (ATROVENT) 0.03 % nasal spray Use 2 Sprays in the nose every 12 hours. metroNIDAZOLE (METROGEL) 0.75 % Topical Gel Apply to affected area twice daily. [place]-3 Fatty Acids (FISH OIL) 500 mg cap Take 1 capsule by mouth once daily. blood sugar diagnostic (BLOOD GLUCOSE TEST) test strip Test blood sugar(s) 1 times daily. Dx: Type 2 DM - Controlled E11.9 Insulin: Yes Lancets lancets Test blood sugar(s) 1 times daily. Dx: Type 2 DM - Controlled E11.9 Insulin: No Ilnmuytw-Zq-Fuz-Fe-FA tab Take 1 tablet by mouth once [...] Age of Onset Alcohol/Drug Mother Heart Father [place] Cancer Father PANCREATIC CANCER Diabetes Father Diabetes [...] in am in person documented in this encounterPromedica Fostoria Community Hospital10-18-2022 Miscellaneous Notes* Telephone Encounter - Nakia Caraballo RN - 08/21/2022 1:02 PM EDT Botox approved 08/15/22-01/30/23. Patient made aware that we will get her scheduled. Latonia Caraballo RN documented in this encounterPromedica Fostoria Community Hospital10-05-2022 Miscellaneous Notes* Telephone Encounter - Adelina Mason APRN.TRANSFER PROFESSOR - 08/08/2022 12:53 PM EDT Please advise patient insurance will not approve the RFA of her shoulder. Another option would be to repeat the LEFT scapular NB, but with steroids for a therapeutic effect. If she would like to proceed with this option please let me know and will place the order. Thank you, Adelina Mason APRN.TRANSFER PROFESSOR documented in this encounterPromedica Fostoria Community Hospital10-05-2022 Miscellaneous Notes* Telephone Encounter - Brittney Huffman Pss - 08/08/2022 10:08 AM EDT Spoke with the patient she has not heard back from [place] [facility] will try them again if not able to reach them she will call [facility] back to schedule. documented in this encounterPromedica Fostoria Community Hospital09-30-2022 Miscellaneous Notes* Telephone Encounter - Karen Bansal APRN.CNP - 08/03/2022 10:33 AM EDT Rizatriptan sent to pharmacy. Stop sumatriptan. * Telephone Encounter - Nakia Caraballo RN - 08/03/2022 9:03 AM EDT Patient reporting that sumatriptan is not helping migraines. Asking for another treatment. Botox referral was sent but still pending. Latonia Caraballo RN documented in this encounterPromedica Fostoria Community Hospital09-29-2022 History of Present illness Narrative* Ivette Grimes [...] her cpap. Needs new machine. Sees her technologist development soon. . Will be seeing cardiology. Had [...] in bed with current PAP mask. Ipratropium [place] (ATROVENT) 0.03 % nasal spray Use 2 Sprays in the nose every 12 hours. metroNIDAZOLE (METROGEL) 0.75 % Topical Gel Apply to affected area twice daily. [place]-3 Fatty Acids (FISH OIL) 500 mg cap Take 1 capsule by mouth once daily. blood sugar diagnostic (BLOOD GLUCOSE TEST) test strip Test blood sugar(s) 1 times daily. Dx: Type 2 DM - Controlled E11.9 Insulin: Yes Lancets lancets Test blood sugar(s) 1 times daily. Dx: Type 2 DM - Controlled E11.9 Insulin: No Ovftbeyr-Qp-Htd-Fe-FA tab Take 1 tablet by mouth once [...] Age of Onset Alcohol/Drug Mother Heart Father [place] Cancer Father PANCREATIC CANCER Diabetes Father Diabetes [...] RTO in six months documented in this encounterPromedica Fostoria Community Hospital09-28-2022 Miscellaneous Notes* Telephone Encounter - Nakia Caraballo RN - 08/01/2022 1:21 PM EDT Botox referral sent to pharmacy. Latonia Caraballo RN documented in this encounterPromedica Fostoria Community Hospital09-19-2022 Miscellaneous Notes* Telephone Encounter - Dayanna Daniels [...] 07/2022 Last refill: 07/2021 documented in this encounterPromedica Fostoria Community Hospital09-15-2022 Instructions* Patient Instructions* Gabi Cornelius APRN.TRANSFER PROFESSOR - 07/19/2022 2:08 PM EDT Preventative: Topamax [...] Feverfew: Feverfew is a common garden herb [place] and popular in [facility] as a treatment for disorders typically [...] pepperoni, Pickled leblanc Pods of broad jaquez (Korean beans, Maori pea pods, Nigerien (antwan) beans, saldana and navy beans Ripe avocado, ripe banana [...] too muchlight. These can be obtained at [employer] or [employer]: see list above. 2. Limit use of acute treatments (wruy-sht-tchattx medications, triptans, etc.) to no more than [...] and quiet environment. Relax and reduce stress. Rbytoeh7Hexxj is a free félix that can instruct you on some simple relaxtionand breathing techniques. Http://[employer]Tourlandish is a free website that provides teaching [...] ensuing treatment plans will be released via [employer] and discussedduring your follow-up appointment. [employer]: Please ask the schedulers to give you an activation code. The main way of communication isby [employer] rather than phone lines, so if you have not signed up, please do so. [employer] is also theway that you can review your labs and testing. We are not able to contact everyone to tell them results are normal. If you do not hear back from us regarding testing you have had, it should be considered normal or within normal range. If you have any questions about the results, you are free to message us. [employer] is meant for simple questions regarding medications, possible side effects, or other simplestraight forward questions in limited sentences, rather than multiple paragraphs of discussion. [employer] is not meant for, or efficient for [...] do not comment on most testing on [place] [employer] in a message or commentary unless there is a concern. You will not receive a message from me of the result unless there is a specific concern of the result I need you to address further in care with us or your primary medical team. Make sure to check your my chart email or félix. documented in this encounterPromedica Fostoria [facility]09-15-2022 History of Present illness Narrative* Karen Bansal APRN.CNP - 07/19/2022 1:00 PM EDT Images from the original note were not included. [facility] General Neurology New Patient Headache Evaluation CHIEF [...] Description Onset: Early 30's. Usually start around contract preparer. Denies upon wakening. Total headache days per [...] Outside imaging reviewed Lab work obtained from [facility] and reviewed Blood studies 02/07/2022 Hemoglobin A1C [...] Age of Onset Alcohol/Drug Mother Heart Father [place] Cancer Father PANCREATIC CANCER Diabetes Father Diabetes [...] in bed with current PAP mask. Ipratropium [place] (ATROVENT) 0.03 % nasal spray Use 2 Sprays in the nose every 12 hours. metroNIDAZOLE (METROGEL) 0.75 % Topical Gel Apply to affected area twice daily. [place]-3 Fatty Acids (FISH OIL) 500 mg cap Take 1 capsule by mouth once daily. blood sugar diagnostic (BLOOD GLUCOSE TEST) test strip Test blood sugar(s) 1 times daily. Dx: Type 2 DM - Controlled E11.9 Insulin: Yes Lancets lancets Test blood sugar(s) 1 times daily. Dx: Type 2 DM - Controlled E11.9 Insulin: No Bplpicgn-Lz-Ncp-Fe-FA tab Take 1 tablet by mouth once [...] Finger Abduction (U) 5 Finger Abduction 5 Ultrasound Sonographer 5 Ultrasound Sonographer 5 Right Lower Extremity: (of 5) Left [...] free days a month: 3 Gabi Cornelius APRN.[facility] General Neurology My impression and recommendations were [...] which included preparing to see the patient, [id number] patient care, completing clinical documentation, obtaining and/or [...] recommendations. Karen Bansal APRN.GABRIELA documented in this encounterPromedica Fostoria Community Hospital09-15-2022 NoteHNO ID: [id number] Author: Adelina Mason APRN.CNP Service: ? Author Type: Nurse Practitioner Type: Progress Notes Filed: 07/19/2022 10:17 AM Note Text: [facility] [place] [facility] Today's Date: 07/19/2022 Last Visit: 05/24/22 [...] (A) 74 - 99 mg/dL Final Comment: Location:[facility], [address] [place] [address], [facility] The Accu-Chek Inform II glucose meter [...] activity was identified. 07/19/2022 by Adelina Mason APRN.TRANSFER PROFESSOR Last Drug screen: Not Applicable Risk Assessment: [...] visible regional lymphad (more content not included)...[facility]09-15-2022 NoteHNO ID: [id number] Author: Taina Cifuentes MA Service: ? Author Type: Family Support Specialist Type: Progress Notes Filed: 07/19/2022 10:17 AM [...] suicidal ideas. The patient is not nervous/anxious.[facility]09-15-2022 Miscellaneous Notes* Telephone Encounter - Pankaj Murillo [...] year? Yes If yes, When and Where? [facility], currently attending (Medical Records Release needs to [...] COVID vaccine.) Pankaj Murillo documented in this encounterPromedica Fostoria Community Hospital09-06-2022 Miscellaneous Notes* Telephone Encounter - Ingrid Salmon Ma - 07/10/2022 1:55 PM EDT Last office visit: 05/01/22 F/u scheduled: 08/02/22 Ingrid Salmon Ma documented in this encounterPromedica Fostoria Community Hospital08-30-2022 Miscellaneous Notes* Telephone Encounter - LEVAR Jasmine [...] and PM. Note, lab work obtained from [facility] and reviewed. Given persistence of headaches will [...] Thank you. LEVAR Jasmine documented in this encounterPromedica Fostoria Community Hospital08-19-2022 Miscellaneous Notes* Telephone Encounter - Dayanna Daniels [...] refill: 06/06/2022 20 tablets documented in this encounterPromedica Fostoria Community Hospital08-04-2022 Miscellaneous Notes* Telephone Encounter - LEVAR Jasmine - 06/07/2022 4:24 PM EDT Orders and APRIL Notes faxed to [employer] to service pts PAP due to compliance reports and data no longerbeing able to be pulled from device. LEVAR Jasmine documented in this encounterPromedica Fostoria Community Hospital08-04-2022 History of Present illness Narrative* Tara Gillette APRN.TRANSFER PROFESSOR - 06/07/2022 3:30 PM EDT Images from the original note were not included. [facility] Neurolog[facility] [place] Follow-up Visit Follow-up note June 07, 2022 [...] BP. Check CMP and CBC due to jail med use. 3. LETITIA (obstructive sleep apnea) [...] when sleepy. 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 Usually getting about 7 hours of sleep. [...] in bed with current PAP mask. Ipratropium [place] (ATROVENT) 0.03 % nasal spray Use 2 Sprays in the nose every 12 hours. metroNIDAZOLE (METROGEL) 0.75 % Topical Gel Apply to affected area twice daily. [place]-3 Fatty Acids (FISH OIL) 500 mg cap Take 1 capsule by mouth once daily. blood sugar diagnostic (BLOOD GLUCOSE TEST) test strip Test blood sugar(s) 1 times daily. Dx: Type 2 DM - Controlled E11.9 Insulin: Yes Lancets lancets Test blood sugar(s) 1 times daily. Dx: Type 2 DM - Controlled E11.9 Insulin: No Frdiiomn-Al-Uoe-Fe-FA ( FORMULA) ORAL Tab Take 1 tablet [...] and pattern. Labs/studies: Outside labs reviewed from [facility] collected on 06/05/22: CBC N UA N [...] and PM. Note, lab work obtained from [facility] and reviewed. Given persistence of headaches will [...] 06/07/22 CONSULT TO [facility] Tara Gillette APRN.TRANSFER PROFESSOR I spent a total of 30 minutes on the date of the service which included preparing to see the patient, bhch-yo-pclk patient care, completing clinical documentation, obtaining and/or reviewing separately obtained history, performing a medically appropriate examination, counseling and educating the pat ient/family/caregiver and ordering medications, tests, or procedures. documented in this encounterPromedica Fostoria Community Hospital08-02-2022 Miscellaneous Notes* Addendum Note - Ivette Grimes MD - 06/05/2022 1:46 PM EDT Addended by: IVETTE GRIMES on: 06/05/2022 01:46 PM Modules accepted: Orders * Telephone Encounter - Ivette Grimes MD - 06/05/2022 1:44 PM EDT Can send lab to [facility] to be done in two weeks documented in this encounterPromedica Fostoria Community Hospital07-26-2022 Miscellaneous Notes* Telephone Encounter - LEVAR Jasmine - 05/29/2022 2:12 PM EDT Pt updated to get labs done through . LEVAR Jasmine * Telephone Encounter - Ivette Mejia Jr., [...] says she had CMP andCBC done at [facility] on 02/09. These are in pt chart. Pt asking if she needs to have labs redrawn or if the ones done in February are sufficient. Please advise. Thank you. LEVAR Jasmine documented in this encounterPromedica Fostoria Community Hospital07-21-2022 NoteHNO ID: [id number] Author: Adleina Mason APRN.TRANSFER PROFESSOR Service: ? 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07-21-2022 NoteHNO ID: [id number] Author: Gloria Oh MA Service: ? Author Type: Family Support Specialist Type: Progress Notes Filed: 05/24/2022 10:08 PM [...] suicidal ideas. The patient is not nervous/anxious.[facility]07-21-2022 Instructions* Patient Instructions* Adelina Mason APRN.CNP - 05/24/2022 11:52 AM EDT Activity as tolerated Use Ice and/or heat as tolerated as needed documented in this encounterPromedica Fostoria Community Hospital07-21-2022 History of Present illness Narrative* Adelina Mason APRN.CNP - 05/24/2022 11:28 AM EDT Images from the original note were not included. 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 05/24/2022 by Adelina Mason APRN.TRANSFER PROFESSOR Last Drug screen: Not Applicable Risk Assessment: [...] external rotation Special Tests: Non-painful (negative) Alexandra Raymundo's, O'Ilya, Ravi's Diagnoses: (M25.512, G89.29) Chronic left shoulder [...] refill. UDS, NAOIC/ORT: up to date Functional Yarsanism: Physical Therapy (Land-based) Additional Studies: None Referrals: [...] decision making from today's date. Adelina Mason APRN.TRANSFER PROFESSOR Pain Management [facility] [place] [facility] * Gloria Oh MA - 05/24/2022 11:00 [...] patient is not nervous/anxious. documented in this encounterPromedica Fostoria Community Hospital07-08-2022 Miscellaneous Notes* Telephone Encounter - Livia Luna - 05/11/2022 3:17 PM EDT Left brief message asking patient to call back with any questions or concerns about a recent appointment. Livia Luna LPN May 11, 2022 3:18 PM documented in this encounterPromedica Fostoria Community Hospital07-07-2022 NoteHNO ID: [id number] Author: Mirna Lanza LPN Service: ? Author [...] suicidal ideas. The patient is not nervous/anxious.[facility]07-07-[facility] Nurse Note* Mirna Lanza LPN - 05/10/2022 [...] tablePatient s procedure was performed in an [facility] Procedure room. Pause completed at each [...] Lanza LPN - 05/10/2022 10:03 AM EDT [employer]'s Name: Marilynn Are you on a blood [...] to receive one? n documented in this encounterPromedica Fostoria Community Hospital07-07-2022 Instructions* Patient Instructions* Mirna Lanza LPN - [...] emergency care and why. documented in this encounterPromedica Fostoria Community Hospital07-07-2022 NoteHNO ID: [id number] Author: Elle Sanchez MD Service: ? Author Type: Physician Type: Progress Notes Filed: 05/10/2022 11:04 AM Note Text: [facility] [place] [facility] Patient name: Tori Gray Date of : 1980 Today's date: 05/10/2022 Purpose: Ultrasound-guided injection Diagnosis: (M75.02) Adhesive capsulitis of left shoulder (primary encounter diagnosis) (M19.012) Primary osteoarthritis of left shoulder Procedure: Left Shoulder/Chest Suprascapular Nerve Block Snap Attacher: Elle Sanchez M.D., M.B.A Comments: Allergy Due to the patient's reported history of allergy to Lidocaine, the following medication was substituted: Bupivacaine. Notes from Licensed Nuclear Operator 01/2020 reviewed, she had skin testing to multiple local anesthetics and steroids, without any reaction, but advised that she avoid Lidocaine where possible due to unknown negative predictive value of the tests. Other anesthetics had been used with other procedures that did not have a reaction (eg Bupivacaine). [place] protocol documentation / Pre-Procedure Checklist: ? ID [...] MBA Pain Management [facility] [place] [facility] 05-10-2022 History of Present illness Narrative* [...] 8:23 AM EDT [facility] [place] [facility] Patient name: Tori Gray Date of : 1980 Today's date: 05/10/2022 Purpose: Ultrasound-guided injection Diagnosis: (M75.02) Adhesive capsulitis of left shoulder (primary encounter diagnosis) (M19.012) Primary osteoarthritis of left shoulder Procedure: Left Shoulder/Chest Suprascapular Nerve Block Snap Attacher: Elle Sanchez M.D., M.B.A Comments: Allergy Due to the patient's reported history of allergy to Lidocaine, the following medication was substituted: Bupivacaine. Notes from Licensed Nuclear Operator 01/2020 reviewed, she had skin testing to multiple local anesthetics and steroids, without any reaction, but advised that she avoid Lidocaine where possible due to unknown negative predictive value of the tests. Other anesthetics had been usedwith other procedures that did not have a reaction (eg Bupivacaine). [place] protocol documentation / Pre-Procedure Checklist: ID verified [...] [facility] Pain Management [facility] [place] [facility] documented in this encounterPromedica Fostoria Community Hospital07-05-2022 Miscellaneous Notes* Telephone Encounter - Lubna Yoon LPN - 05/08/2022 1:04 PM EDT Sent a [employer] message * Telephone Encounter - Ivette Grimes MD - 05/08/2022 12:56 PM EDT I would recommend she follow up and see one of us here. documented in this encounterPromedica Fostoria Community Hospital06-30-2022 Miscellaneous Notes* Telephone Encounter - Jumana Harrell [...] advise. Jumana Harrell LPN documented in this encounterPromedica Fostoria Community Hospital06-28-2022 Instructions* Patient Instructions* Ivette Grimes MD - 05/01/2022 3:22 PM EDT Change lyrica to every other day for three days then stop. Then start gabapentin one tab at bedtime for three days. Then one tab twice a day for three days Then one tab in am and two at night for three days. Then 2 tabs twice a day. documented in this encounterPromedica Fostoria Community Hospital06-28-2022 History of Present illness Narrative* Ivette Grimes [...] in bed with current PAP mask. Ipratropium [place] (ATROVENT) 0.03 % nasal spray Use 2 [...] 2 DM - Controlled E11.9 Insulin: No Oyttjyxk-Nq-Gcv-Fe-FA ( FORMULA) ORAL Tab Take 1 tablet by mouth once daily. [place]-3 Fatty Acids (FISH OIL) 500 mg cap [...] Age of Onset Alcohol/Drug Mother Heart Father [place] Cancer Father PANCREATIC CANCER Diabetes Father Diabetes [...] XR RIBS/CHEST 3V AP RIB/OBLS/CXR LEFT Ivette Grimes RTO in three months and prn. documented in this encounterPromedica Fostoria Community Hospital06-16-2022 Miscellaneous Notes* Addendum Note - Ivette Grimes MD - 04/19/2022 2:41 PM EDT Addended by: IVETTE GRIMES on: 04/19/2022 02:41 PM Modules accepted: Orders documented in this encounterPromedica Fostoria Community Hospital06-13-2022 Miscellaneous Notes* Telephone Encounter - Ivette Mejia Jr., MD - 04/16/2022 6:04 PM EDT [place] [place] if pt qualifies for new PAP device. If so, can order a new [employer] PAP. Thank you, Ivette Mejia MD documented in this encounterPromedica Fostoria Community Hospital06-13-2022 Miscellaneous Notes* Telephone Encounter - Quinn Lazo LPN - 04/16/2022 10:28 AM EDT Patient phones requesting refills as follows: Pending Prescriptions Disp Refills TIZANIDINE 4 MG TABLET 20 tablet 0 Sig: Take 1 tablet by mouth every 8 hours as needed. CRISTINA: No APRIL 02/28/22 NOV 05/01/22 Please review and advise. Quinn Lazo LPN documented in this encounterPromedica Fostoria Community Hospital06-06-2022 Instructions* Patient Instructions* Ivette Mejia Jr., MD [...] Excedrin and Tylenol use. documented in this encounterPromedica Fostoria Community Hospital06-06-2022 History of Present illness Narrative* Ivette Mejia [...] this resolves mask issues. [place] [facility] [place], discussed with patient: the physiology [...] in bed with current PAP mask. Ipratropium [place] (ATROVENT) 0.03 % nasal spray Use 2 Sprays in the nose every 12 hours. blood sugar diagnostic (BLOOD GLUCOSE TEST) test strip Test blood sugar(s) 1 times daily. Dx: Type 2 DM - Controlled E11.9 Insulin: Yes Lancets lancets Test blood sugar(s) 1 times daily. Dx: Type 2 DM - Controlled E11.9 Insulin: No Gufmncff-Lr-Mmk-Fe-FA ( FORMULA) ORAL Tab Take 1 tablet by mouth once daily. metroNIDAZOLE (METROGEL) 0.75 % Topical Gel Apply to affected area twice daily. [place]-3 Fatty Acids (FISH OIL) 500 mg cap Take 1 capsule by mouth once daily. HISTORIES PAST MEDICAL HISTORY Diagnosis Date Acute cholecystitis Cholecystitis Anxiety 06/07/2014 Type 2 diabetes mellitus (HCC) FAMILY HISTORY Problem Relation Age of Onset Alcohol/Drug Mother Heart Father [place] Cancer Father PANCREATIC CANCER Diabetes Father Diabetes [...] BP. Check CMP and CBC due to termite exterminator helper med use. 3. LETITIA (obstructive sleep apnea) [...] when sleepy. 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 Ivette Mejia MD I spent a total of 40+ minutes on the date of the service which included preparing to see the patient, jynw-ip-mjco patient care, completing clinical documentation, obtaining and/or reviewing separately obtained history, performing a medically appropriate examination, counseling and educating the pa tient/family/caregiver, ordering medications, tests, or procedures, independently interpreting results (not separately reported) and communicating results to the patient/family/caregiver. documented in this encounterPromedica Fostoria Community Hospital06-02-2022 Miscellaneous Notes* Telephone Encounter - Helen Camacho LPN - 04/05/2022 9:51 AM EDT Last office visit 02/23/2022 documented in this encounterPromedica Fostoria Community Hospital05-27-2022 Miscellaneous Notes* Telephone Encounter - Milena Rico LPN - 03/30/2022 11:08 AM EDT april-- 02/28/22 Next 05/01/22 Last refill-- 03/16/22 20 with 0 refills Last labs 02/07/22 documented in this encounterPromedica Fostoria Community Hospital05-26-2022 Miscellaneous Notes* Telephone Encounter - Terese Cruz [...] COVID vaccine.) Terese Cruz documented in this encounterPromedica Fostoria Community Hospital05-26-2022 NoteHNO ID: [id number] Author: Henna Boles MA Service: ? Author Type: Family Support Specialist Type: Progress Notes Filed: 03/29/2022 11:48 AM [...] suicidal ideas. The patient is not nervous/anxious.[facility]05-26-2022 History of Present illness Narrative* Henna Boles [...] not included. [facility] [place] [facility] Name: Tori Gray : 1980 Purpose: New [...] 12/21/2021, noted she had an EMG at [facility] which was normal (Jul 2021). MRI shoulder had very minor degenerative changes. Non-surgical management was advised. 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 [...] (Meloxicam) and Lodine (Etodolac) Opioids: Vicodin or Lashmeet (Hydrocodone) and Percocet (Oxycodone) Muscle Relaxants: Zanaflex [...] 45' right Special Tests: Concordant pain with Alexandra Raymundo's Diagnoses: (M79.18) Myofascial pain (primary encounter diagnosis) [...] Referrals: No additional considerations at present Functional Yarsanism: No changes-continue current regimen Depending on response [...] making from today's date. Elle Sanchez MD, [facility] Pain Management [facility] [place] [facility] documented in this encounterPromedica Fostoria Community Hospital05-26-2022 NoteHNO ID: [id number] Author: Elle Sanchez MD Service: ? Author Type: Physician Type: Progress Notes Filed: 03/29/2022 11:48 AM Note Text: [facility] Name: Tori Gray : 1980 Purpose: [...] 12/21/2021, noted she had an EMG at [facility] which was normal (Jul 2021). MRI shoulder had very minor degenerative changes. Non-surgical management was advised. 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 [...] (Meloxicam) and Lodine (Etodolac) Opioids: Vicodin or Lashmeet (Hydrocodone) and Percocet (Oxycodone) Muscle Relaxants: Zanaflex [...] today's date, noted (more content not included)...[facility]05-13-2022 Miscellaneous Notes* Telephone Encounter - Helen Camacho LPN - 03/16/2022 11:14 AM EDT Patient phones requesting refills as follows: Pending Prescriptions Disp Refills TIZANIDINE 4 MG TABLET 20 tablet 0 Sig: Take 1 tablet by mouth every 8 hours as needed. CRISTINA: No Please review and advise. Helen Camacho LPN documented in this encounterPromedica Fostoria Community Hospital05-02-2022 Miscellaneous Notes* Telephone Encounter - LEVAR Jasmine - 03/05/2022 9:36 AM EDT Patient has been identified by name and date of : Yes Patient phones for refill(s): Pending Prescriptions Disp Refills TIZANIDINE 4 MG TABLET 20 tablet 0 Sig: Take 1 tablet by mouth every 8 hours as needed. CRISTINA: No Date of last office visit in primary care: APRIL 02/28/2022 Appointment scheduled for 05/01/2022 Last 2 Encounter Wt Readings: Date: Wt: 02/28/2022 120.7 kg (266 lb) 01/25/2022 119.7 kg (264 lb) Please advise. Thank you. LEVAR Jasmine documented in this encounterPromedica Fostoria Community Hospital04-27-2022 History of Present illness Narrative* Ivette Grimes MD - 02/28/2022 4:43 PM EDT Patient presents with: ED Follow-up HPI: Patient presents today for office visit for follow up. Nursing Notes: Nirmala Storey LPN 02/28/2022 4:42 PM Signed HOSPITAL/ER FOLLOW UP: Reason for visit: back pain/headache(different pain not her chronic pain) Pain went from lower backup to shoulders. Which facility: [facility] Date of visit: 02/27/22 Diagnosis: back pain, [...] week as well. Happened all day yesterday. [address] different than her classic disc pain. Might [...] in bed with current PAP mask. Ipratropium [place] (ATROVENT) 0.03 % nasal spray Use 2 Sprays in the nose every 12 hours. metroNIDAZOLE (METROGEL) 0.75 % Topical Gel Apply to affected area twice daily. [place]-3 Fatty Acids (FISH OIL) 500 mg cap Take 1 capsule by mouth once daily. blood sugar diagnostic (BLOOD GLUCOSE TEST) test strip Test blood sugar(s) 1 times daily. Dx: Type 2 DM - Controlled E11.9 Insulin: Yes Lancets lancets Test blood sugar(s) 1 times daily. Dx: Type 2 DM - Controlled E11.9 Insulin: No Zkffbpqj-Fx-Arg-Fe-FA ( FORMULA) ORAL Tab Take 1 tablet [...] Age of Onset Alcohol/Drug Mother Heart Father [place] Cancer Father PANCREATIC CANCER Diabetes Father Diabetes [...] six to eight weeks documented in this encounterPromedica Fostoria Community Hospital04-27-2022 Nurse Note* Nirmala Storey LPN - 02/28/2022 4:36 PM EDT HOSPITAL/ER FOLLOW UP: Reason for visit: back pain/headache(different pain not her chronic pain) Pain went from lower backup to shoulders. Which facility: [facility] Date of visit: 02/27/22 Diagnosis: back pain, hypertension Testing done: CT scan and labs Treatment given: no new changes Current symptoms: mild headache still and back pain, just feels off Was just feeling off. Aching. Cold chills. Scheduled with Dr Sanchez. documented in this encounterPromedica Fostoria Community Hospital04-26-2022 Miscellaneous Notes* Telephone Encounter - Quinn Lazo LPN - 02/27/2022 12:44 PM EDT Appt scheduled. Quinn Lazo LPN documented in this encounterPromedica Fostoria Community Hospital04-22-2022 Miscellaneous Notes* Telephone Encounter - LEVAR Jasmine [...] kg (259 lb) Please advise. Thank you. ELVAR Jasmine documented in this encounterPromedica Fostoria Community Hospital04-06-2022 Miscellaneous Notes* Telephone Encounter - Nirmala Storey LPN - 02/07/2022 4:09 PM EDT [employer] message sent to patient. * Telephone Encounter - Ivette Grimes MD - 02/07/2022 3:38 PM EDT Let her her know her labs look great. * Telephone Encounter - Nirmala Storey LPN - 02/07/2022 2:33 PM EDT Received lab results from [facility]. Placed on desk for review. [facility] Miscellaneous Notes* Telephone Encounter - Tessy Wadsworth Ma - 02/05/2022 12:25 PM EDT Labs faxed within [employer] Pt to update if there are any issues. Tessy Wadsworth Ma documented in this encounterProm[facility]03-28-[facility] Miscellaneous Notes* Telephone Encounter - Darrion Barahona - 01/29/2022 3:13 PM EDT I have attempted to contact this patient by phone, Left brief message on cell voicemail stating to call and schedule. Darrion Barahona * Telephone Encounter - Darrion Barahona - 01/29/2022 3:13 PM EDT ----- Message [...] shoulder pain. Thank you! documented in this encounterProm[facility] History of Past illness Narrative* Problem Noted [...] of this encounter (statuses as of 01/30/2022) [facility] Narrative* Problem Noted [...] of this encounter (statuses as of 02/05/2022) [facility] N[facility]ative* Problem Noted [...] of this encounter (statuses as of 02/07/2022) [facility] N[facility]* Problem Noted [...] of this encounter (statuses as of 02/07/2022) [facility] N[facility]* Problem Noted [...] of this encounter (statuses as of 02/08/2022) [facility] N[facility]ative* Problem Noted [...] of this encounter (statuses as of 02/23/2022) [facility] N[facility]* Problem Noted [...] of this encounter (statuses as of 02/27/2022) [facility] N[facility]* Problem Noted [...] of this encounter (statuses as of 02/28/2022) [facility]* Problem Noted [...] of this encounter (statuses as of 03/05/2022) [facility]* Problem Noted [...] of this encounter (statuses as of 03/16/2022) [facility]* Problem Noted [...] of this encounter (statuses as of 03/29/2022) [facility]* Problem Noted [...] of this encounter (statuses as of 03/29/2022) [facility]* Problem Noted [...] of this encounter (statuses as of 03/30/2022) [facility]* Problem Noted [...] of this encounter (statuses as of 04/05/2022) [facility]* Problem Noted [...] of this encounter (statuses as of 04/09/2022) [facility]* Problem Noted [...] of this encounter (statuses as of 04/10/2022) [facility]* Problem Noted [...] of this encounter (statuses as of 04/16/2022) [facility]* Problem Noted [...] of this encounter (statuses as of 04/16/2022) [facility]* Problem Noted [...] of this encounter (statuses as of 04/19/2022) [facility]* Problem Noted [...] of this encounter (statuses as of 05/01/2022) [facility]* Problem Noted [...] of this encounter (statuses as of 05/03/2022) [facility] Narrative* Problem Noted Date Resolved Date Routine general medical exam ination at a health care facility 12/06/2012 02/22/2014 Routine general medical exam ination at a [facility] care facility 01/23/2010 12/06/2012 Overview: 01/23/2010, from [...] of this encounter (statuses as of 05/08/2022) [facility] Narrative* Problem Noted [...] of this encounter (statuses as of 05/10/2022) [facility]* Problem Noted [...] of this encounter (statuses as of 05/11/2022) [facility]* Problem Noted [...] of this encounter (statuses as of 05/25/2022) [facility]* Problem Noted [...] of this encounter (statuses as of 05/29/2022) [facility]* Problem Noted [...] of this encounter (statuses as of 06/05/2022) [facility]* Problem Noted [...] of this encounter (statuses as of 06/05/2022) [facility]* Problem Noted [...] of this encounter (statuses as of 06/07/2022) [facility]* Problem Noted [...] of this encounter (statuses as of 06/07/2022) [facility]* Problem Noted [...] of this encounter (statuses as of 06/22/2022) [facility]* Problem Noted [...] of this encounter (statuses as of 07/03/2022) [facility]* Problem Noted [...] of this encounter (statuses as of 07/10/2022) [facility]* Problem Noted [...] of this encounter (statuses as of 07/19/2022) [facility]* Problem Noted [...] of this encounter (statuses as of 07/19/2022) [facility]* Problem Noted [...] of this encounter (statuses as of 07/23/2022) [facility]* Problem Noted [...] of this encounter (statuses as of 08/01/2022) [facility]* Problem Noted [...] of this encounter (statuses as of 08/02/2022) [facility]* Problem Noted [...] of this encounter (statuses as of 08/03/2022) [facility]* Problem Noted [...] of this encounter (statuses as of 08/06/2022) [facility]* Problem Noted [...] of this encounter (statuses as of 08/08/2022) [facility]* Problem Noted [...] of this encounter (statuses as of 08/08/2022) [facility]* Problem Noted [...] of this encounter (statuses as of 08/08/2022) [facility]* Problem Noted [...] of this encounter (statuses as of 08/27/2022) [facility] N[facility]* Problem Noted [...] of this encounter (statuses as of 09/03/2022) [facility]+Reason for visit Narrative* Chief Complaint Back [...] dysfunction of thoracic region Disc displacement, lumbar [facility] Work Phone: Discharge summary Author Sam Pearl [facility] February 04, 2024 3:49am Note Date/Time February 04, 2024 2:07 am [facility] Medical Records Department [address] [place] [address] Emergency Department Summary 02/04/24 MR#: [id number] Acct: [id number] Name: TORI GRAY Rep #:[id number] : 1980 43 From: Sam Pearl MD [...] last A1c was in the 5.1 range. [facility] Medical History Abnormal ECG Acute bronchitis Acute [...] %) nasal spray 2 spray intranasal BID hidrknicg23/20/20 [History Last Taken 08/03/23] omega-3 fatty acids [...] tablet 1 tab PO BID #6 TABLETS 04/02/24 [Rx Last Taken Unknown] Allergy/AdvReac Type Severity [...] Neuro Narrative: Normal speech. No aphasia. Normal [id number]-gpox and tcet-bw-dfra bilaterally. No confusion. 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 She describes visual disturbance being diffuse, [...] (Auto) 71.0 H Lymph % (Auto) 19.8 [place] % (Auto) 6.6 Eos % (Auto) 0.9 [...] Clarity Clear Urine pH 7.0 Ur Specific [place] 1.010 Urine Protein 15 H Urine Glucose [...] Juan Luis German MD at 3:17 EDT , Discharge Plan Triage Chief Complaint: Dizziness [...] your Primary Care Provider. Call [facility] ([phone]) or report to the closest Emergency Room. Call 911 if necessary. 02/04/24 0349 <Electronically signed by Sam Pearl MD> Cosigner Signature (if applicable): CC: Dr. Ivette Grimes MD ~ Signed [facility] Work Phone: Evaluation note* Diagnosis Onset Date [...] region acute Disc displacement, lumbar ch ronic [facility] Work Phone: Evaluation note* Diagnosis Upper back pain- Primary Acute midline low back pain without sciatica Type 2 diabetes mellitus with microalbuminuria, with long-term current use of insulin (HCC) LETITIA (obstructive sleep apnea) Obstructive sleep apnea (adult) (pediatric) Lumbar disc disorder Other and unspecified disc disorder of lumbar region Elevated BP without diagnosis of hypertension [facility] Myofascial pain- Primary Mylagia and myositis, unspecified Chronic left shoulder pain Pain in joint, shoulder region Neuropathic pain Neuralgia, neuritis, and radiculitis, unspecified Adhesive capsulitis of left shoulder Adhesive capsulitis of shoulder Primary osteoarthritis of left shoulder Primary localized osteoarthrosis, shoulder region [facility] Diagnosis Migraine without aura and without status migrainosus, not intractable Migraine without aura, without mention of intractable migraine without mention of status migrainosus [facility] Diagnosis Intractable migraine without aura [...] obesity type, unspecified whether serious comorbidity present ([facility]) [facility] Diagnosis Microalbuminuria- Primary Proteinuria Anxiety Anxiety [...] Chest pain, unspecified [facility] Diagnosis SOB (shortness of breath) Shortness of breath [facility] Diagnosis Adhesive capsulitis of left [...] and myositis, unspecified [facility] encounter [facility] Diagnosis Proteinuria, unspecified type- Primary Leukocytosis, [...] comorbidity present (HCC) [facility] Diagnosis Intractable migraine without aura and [...] comorbidity present (HCC) [facility] Diagnosis Intractable chronic migraine without aura and without status migrainosus- Primary Chronic migraine without aura, with intractable migraine, so stated, without mention of status migrainosus Mixed migraine and muscle contraction headache Migraine, unspecified, without mention of intractable migraine without mention of status migrainosus [facility] Diagnosis Onset Date Resolution Status [...] region acute Disc displacement, lumbar ch ronic [facility] Work Phone: Evaluation note* Diagnosis Type 2 [...] Fatigue, unspecified type [facility] encounter [facility] Diagnosis Onset Date Resolution Status Segmental [...] dysfunction of thoracic region chronic Obesity chronic [facility] Work Phone: Evaluation note* Diagnosis Onset Date [...] Ob[facility] chronic [facility]* Diagnosis Malaise- Primary Other malaise and fatigue documented [facility] this encounter [facility] Diagnosis Onset Date Resolution Status Back [...] thoracic region acute Disc displacement, lumbar ch [facility] Work Phone: Evaluation note* Diagnosis Lightheadedness- Primary Dizziness and giddiness Essential (primary) hypertension Unspecified essential hypertension Prolonged Q-T interval on ECG Nonspecific abnormal electrocardiogram (ECG) (EKG) Type 2 diabetes mellitus with microalbuminuria, with long-term current use of insulin (HCC) Fatty liver Other chronic nonalcoholic liver disease LETITIA (obstructive sleep apnea) Obstructive sleep apnea (adult) (pediatric) documented [facility] this encounter [facility] Diagnosis Anxiety with depression- Primary [facility] this encounter [facility] Diagnosis Onset Date Resolution Status Back [...] thoracic region acute Disc displacement, lumbar ch [facility] Work Phone: Evaluation note* Diagnosis Onset Date [...] region acute Disc displacement, lumbar ch ronic [facility] Work Phone: Evaluation note* Diagnosis VAHE (generalized anxiety disorder)- Primary Generalized anxiety disorder Major depressive disorder, recurrent episode, moderate (HCC) Major depressive disorder, recurrent episode, moderate [facility] Diagnosis Chronic left shoulder pain- Primary Pain in joint, shoulder region Adhesive capsulitis of left shoulder Adhesive capsulitis of shoulder Neuropathic pain Neuralgia, neuritis, and radiculitis, unspecified Myofascial pain Mylagia and myositis, unspecified [facility] this encounter [facility] Diagnosis Chronic left shoulder pain- Primary Pain in joint, shoulder region Adhesive capsulitis of left shoulder Adhesive capsulitis of shoulder Chronic left shoulder pain Pain in joint, shoulder region Adhesive capsulitis of left shoulder Adhesive capsulitis of shoulder [facility] this encounter [facility] Diagnosis Microalbuminuria Proteinuria Type 2 diabetes [...] capsulitis of shoulder [facility] this encounter [facility] Diagnosis Onset Date Resolution Status Back [...] thoracic region acute Disc displacement, lumbar ch [facility] Work Phone: Evaluation note* Diagnosis Onset Date [...] region acute Disc displacement, lumbar ch ronic [facility] Work Phone: Evaluation note* Diagnosis Worst headache of life- Primary Headache Concussion with loss of consciousness, initial encounter Chronic left shoulder pain Pain in joint, shoulder region Adhesive capsulitis of left shoulder Adhesive capsulitis of shoulder [facility] this encounter [facility] Diagnosis Headache, unspecified headache type- Primary Concussion with loss of consciousness, initial encounter Chronic left shoulder pain Pain in joint, shoulder region Adhesive capsulitis of left shoulder Adhesive capsulitis of shoulder [facility] Diagnosis Post concussion syndrome- Primary Postconcussion [...] capsulitis of shoulder [facility] Diagnosis Headache, unspecified headache type- Primary Concussion with loss of consciousness, initial encounter Chronic left shoulder pain Pain in joint, shoulder region Adhesive capsulitis of left shoulder Adhesive capsulitis of shoulder [facility] Diagnosis Post concussion syndrome- Primary Postconcussion syndrome Essential (primary) hypertension Unspecified essential hypertension Microalbuminuria Proteinuria Type 2 diabetes mellitus without complication, with long-term current use of insulin ([facility]) Chronic left shoulder pain Pain in joint, shoulder region Adhesive capsulitis of left shoulder Adhesive capsulitis of shoulder [facility] Diagnosis Post concussion syndrome- Primary Postconcussion syndrome Essential (primary) hypertension Unspecified essential hypertension Chronic left shoulder pain Pain in joint, shoulder region Adhesive capsulitis of left shoulder Adhesive capsulitis of shoulder [facility]* Diagnosis Post concussive syndrome- Primary Postconcussion syndrome Headache, unspecified headache type [facility] this encounter [facility] Diagnosis Post concussive syndrome- Primary Postconcussion syndrome Headache, unspecified headache type Injury of neck, subsequent encounter [facility] this encounter [facility] Diagnosis Onset Date Resolution Status Back [...] region acute Disc displacement, lumbar ch ronic [facility] Work Phone: Evaluation note* Diagnosis Intractable chronic migraine without aura and without status migrainosus- Primary Chronic migraine without aura, with intractable migraine, so stated, without mention of status migrainosus [facility] encounter [facility] Diagnosis Chronic left shoulder pain- Primary Pain in joint, shoulder region Adhesive capsulitis of left shoulder Adhesive capsulitis of shoulder Neuropathic pain Neuralgia, neuritis, and radiculitis, unspecified Primary osteoarthritis of left shoulder Primary localized osteoarthrosis, shoulder region Myofascial pain Mylagia and myositis, unspecified Lumbar spondylosis Lumbosacral spondylosis without myelopathy [facility] Diagnosis Post concussive syndrome- Primary Postconcussion syndrome Headache, unspecified headache type Injury of neck, subsequent encounter [facility] Diagnosis Soft tissue mass- Primary Disorders of soft tissue, unspecified [facility] Diagnosis VAHE (generalized anxiety disorder)- Primary Generalized anxiety disorder Recurrent major depressive disorder, in full remission (HCC) [facility] Diagnosis Onset Date Resolution Status Back [...] region acute Disc displacement, lumbar ch ronic [facility] Work Phone: Evaluation note* Diagnosis Anxiety- Primary Anxiety state, unspecified documented in this encounter [facility]* Diagnosis Soft tissue mass- Primary Disorders of soft tissue, unspecified Post concussive syndrome Postconcussion syndrome Essential (primary) hypertension Unspecified essential hypertension Type 2 diabetes mellitus with microalbuminuria, with long-term current use of insulin (HCC) Headache, unspecified headache type Myalgia Mylagia and myositis, unspecified documented in this encounter [facility] note* Diagnosis Post concussion syndrome- Primary Postconcussion syndrome LETITIA (obstructive sleep apnea) Obstructive sleep apnea (adult) (pediatric) documented [facility] this encounter [facility]* Diagnosis Encounter for gynecological examination (general) (routine) without abnormal findings- Primary [facility]* Diagnosis Post concussion syndrome- Primary Postconcussion syndrome LETITIA (obstructive sleep apnea) Obstructive sleep apnea (adult) (pediatric) Intractable acute post-traumatic headache Acute post-traumatic headache Altered awareness, transient Transient alteration of awareness [facility] Diagnosis Onset Date Resolution Status Back [...] region acute Disc displacement, lumbar ch ronic [facility] Work Phone: Evaluation note* Diagnosis Intractable chronic migraine without aura and without status migrainosus- Primary Chronic migraine without aura, with intractable migraine, so stated, without mention of status migrainosus Post concussive syndrome Postconcussion syndrome [facility] this encounter [facility] Diagnosis Onset Date Resolution Status Back [...] region acute Disc displacement, lumbar ch ronic [facility] Work Phone: Evaluation note* Diagnosis Foot pain, right- Primary Pain in limb [facility] Diagnosis Type 2 diabetes mellitus with [...] unspecified headache type [facility] Diagnosis Memory loss- Primary Attention and concentration deficit Attention or concentration deficit Post concussion syndrome Postconcussion syndrome Intractable migraine without aura and without status migrainosus Migraine without aura, with intractable migraine, so stated, without mention of status migrainosus LETITIA (obstructive sleep apnea) Obstructive sleep apnea (adult) (pediatric) [facility] Diagnosis Plantar fasciitis- Primary Plantar fascial fibromatosis Calcaneal spur of right foot Calcaneal spur [facility] this encounter [facility]* Diagnosis SOB (shortness of breath) Shortness of breath [facility] Diagnosis SOB (shortness of breath) Shortness of breath [facility] this encounter [facility] Diagnosis Onset Date Resolution Status Back [...] region acute Disc displacement, lumbar ch ronic [facility] Work Phone: Evaluation note* Diagnosis Post concussion syndrome Postconcussion syndrome Intractable acute post-traumatic headache Acute post-traumatic headache Dizziness Dizziness and giddiness Cervicalgia documented in this encounter [facility]* Diagnosis Post concussive syndrome Postconcussion syndrome Headache, unspecified headache type [facility] Diagnosis Onset Date Resolution Status Back [...] region acute Disc displacement, lumbar ch ronic [facility] Work Phone: Evaluation note* Diagnosis Onset Date [...] region acute Disc displacement, lumbar ch ronic [facility] Work Phone: Evaluation note* Diagnosis Essential (primary) hypertension- Primary Unspecified essential hypertension LETITIA (obstructive sleep apnea) Obstructive sleep apnea (adult) (pediatric) Fatty liver Other chronic nonalcoholic liver disease Vertigo Dizziness and giddiness Anxiety Anxiety state, unspecified documented in this encounter [facility] note* Diagnosis Encounter for screening mammogram for malignant neoplasm of breast- Primary Other screening mammogram [facility] this encounter [facility] Diagnosis Onset Date Resolution Status Back [...] Obesity chronic LETITIA (obstructive sleep apnea) chronic [facility] Work Phone: Evaluation note* Diagnosis Intractable chronic migraine without aura and without status migrainosus- Primary Chronic migraine without aura, with intractable migraine, so stated, without mention of status migrainosus [facility]* Diagnosis Onset Date Resolution Status Obesity chronic LETITIA (obstructive sleep apnea) [facility] Work Phone: Evaluation note* Diagnosis Intractable chronic migraine without aura and without status migrainosus- Primary Chronic migraine without aura, with intractable migraine, so stated, without mention of status migrainosus documented in this encounter [facility] note* Diagnosis Headache, unspecified headache type documented in this encounter [facility] note* Diagnosis Headache, unspecified headache type [facility]* Diagnosis Left sided sciatica- Primary Sciatica Screening for depression [facility]* Diagnosis Acute cough- Primary [facility] Diagnosis Bronchitis- Primary Bronchitis, not specified as acute or chronic Type 2 diabetes mellitus with microalbuminuria, with long-term current use of insulin (HCC) Wheezing documented in this encounter [facility] note* Diagnosis Type 2 diabetes mellitus with microalbuminuria, with long-term current use of insulin (HCC)- Primary [facility] Cough, unspecified type- Primary [facility] Pain of right heel Pain in limb [facility] Diagnosis Well adult exam- Primary Routine [...] myelopathy, lumbar region [facility] Diagnosis Intractable chronic migraine without aura and without status migrainosus- Primary Chronic migraine without aura, with intractable migraine, so stated, without mention of status migrainosus [facility] Diagnosis Dysuria- Primary Type 2 diabetes mellitus with microalbuminuria, with long-term current use of insulin (HCC) Primary insomnia Persistent disorder of initiating or maintaining sleep [facility] Diagnosis Flank pain- Primary Abdominal pain, unspecified site [facility] Diagnosis Flank pain Abdominal pain, unspecified site [facility]* Diagnosis SOB (shortness of breath) Shortness of breath [facility] Diagnosis Sinobronchitis- Primary Unspecified sinusitis (chronic) Hypokalemia Hypopotassemia [facility] Diagnosis Sinobronchitis- Primary Unspecified sinusitis (chronic) [facility]* Diagnosis Encounter for screening mammogram for breast cancer [facility] Diagnosis LETITIA (obstructive sleep apnea)- Primary Obstructive sleep apnea (adult) (pediatric) Flank pain Abdominal pain, unspecified site Headache, unspecified headache type Type 2 diabetes mellitus with microalbuminuria, with long-term current use of insulin (HCC) Essential (primary) hypertension Unspecified essential hypertension Chronic left shoulder pain Pain in joint, shoulder region Anxiety Anxiety state, unspecified Screening for depression [facility] Diagnosis Intractable chronic migraine without aura and without status migrainosus- Primary Chronic migraine without aura, with intractable migraine, so stated, without mention of status migrainosus Chronic left shoulder pain Pain in joint, shoulder region [facility] Diagnosis Intractable chronic migraine without aura and with status migrainosus- Primary Chronic migraine without aura, with intractable migraine, so stated, with status migrainosus [facility] Diagnosis Spasm of muscle [facility]* Diagnosis Flank pain Abdominal pain, unspecified site documented in this encounter [facility] note* Diagnosis Well adult exam- Primary Routine general medical examination at a health care facility Anxiety Anxiety state, unspecified Flank pain Abdominal pain, unspecified site LETITIA (obstructive sleep apnea) Obstructive sleep apnea (adult) (pediatric) Type 2 diabetes mellitus with microalbuminuria, with long-term current use of insulin (HCC) Essential (primary) hypertension Unspecified essential hypertension Nonalcoholic fatty liver Obesity, Class III, BMI >= 40 Morbid obesity Proteinuria, unspecified type Headache, unspecified headache type Encounter for screening mammogram for breast cancer [facility] Electrophysiology Location: None Selected [facility] Work Phone: Hospital Discharge instructions Additional Instructions [...] care physician for further outpatient evaluation and management.[facility] Work Phone: Reason for referral (narrative)* Diagnostic Procedure Only (Routine) - Pending Review Specialty Diagnoses / Procedures Referred By Petra meek Referred To Contact XR IMAGING Diagnoses Rib pain Procedures XR RIBS/CHEST 3V AP RIB/OBLS/CXR LEFT RADEX RIBS UNI W/POSTEROANT CH MINIMUM 3 VIEWS Ivette Grimes MD [address] [place] [address] Xr Imaging Referral ID Status Reason Start Date Expiration Date Visits Requested Visits Authorized [id number] Pending Review Auto-Generat ed Referral 05/01/2022 05/31/2023 1 1 [facility] for referral (narrative)* - Pending Review Specialty Diagnoses / Procedures Referred By Petra t Referred To Contact Physical Therapy Diagnoses Chronic left shoulder pain Adhesive capsulitis of left shoulder Primary osteoarthritis of left shoulder Procedures CONSULT TO PHYSICAL THERAPY Adelina Mason, LICENSE CLERK.TRANSFER PROFESSOR [address] [place] [address] Referral ID Status Reason Start Date Expiration Date V isits Requested Visits Authorized [id number] Pending Review 05/24/2022 08/22/2022 1 1 [facility] for referral (narrative)* Outpatient Procedure (Routine) - Closed Specialty Diagnoses / Procedures Referred By Petra meek Referred To [facility] Diagnoses Prolonged Q-T interval on ECG Procedures ECG COMPLETE ECG ROUTINE ECG W/LEAST 12 LDS W/I&R Ivette Grimes MD [address] [place] [address] [facility] [place] [address] [place] [address] Referral ID Status Reason Start Date Expiration Date V isits Requested Visits Authorized [id number] Closed Auto-Generate d Referral 09/04/2022 09/04/2023 1 1 [facility] for referral (narrative)* Diagnostic Procedure Only (Routine) - Pending Review Specialty Diagnoses / Procedures Referred By Petra t Referred To Contact US IMAGING Diagnoses Soft tissue mass Procedures US HEAD/NECK SOFT TISSUE OTHER US SOFT TISSUE HEAD & NECK REAL TIME IMGE Ivette Charles MD [address] [place] [address] [facility] Referral ID Status Reason Start Date Expiration Date Visits Requested Visits Authorized [id number] Pending Review Auto-Generat ed Referral 01/31/2023 03/01/2024 1 1 [facility] for referral (narrative)* Outpatient Procedure (Routine) - Pending Review Specialty Diagnoses / Procedures Referred By Vladimirac t Referred To Contact [facility] Diagnoses Altered awareness, transient Procedures EPIL EEG ROUTINE ELECTROENCEPHALOGRAM REC COMA/SLEEP ONLY Fatuma Beckford PA-C [address] [place] [address] Neurological [place] [address] [place] [id number] Referral ID Status Reason Start Date Expiration Date Visits Requested Visits Authorized [id number] Pending Review Auto-Generat ed Referral 03/05/2023 03/05/2024 1 1 [facility] for referral (narrative)* Diagnostic Procedure Only (Routine) - Pending Review Specialty Diagnoses / Procedures Referred By Petra meek Referred To Contact BR IMAGING Diagnoses Encounter for screening mammogram for malignant neoplasm of breast Procedures FLASH SCREENING SCREENING MAMMOGRAPHY BI 2-VIEW BREAST INC CAD Ivette Grimes MD [address] [place] [address] [facility] [address] [place] [phone] Referral ID Status Reason Start Date Expiration Date Visits Requested Visits Authorized [id number] Pending Review Auto-Generat ed Referral 06/06/2023 07/05/2024 1 1 * Transition of Care (Routine) - Ref Not Required Specialty Diagnoses / Procedures Referred By Petra t Referred To Contact Pain Management Diagnoses Chronic left shoulder pain Herniation of lumbar intervertebral disc with radiculopathy Procedures CONSULT TO PAIN MGT Ivette Grimes MD [address] [place] [address] Referral ID Status Reason Start Date Expiration Date Visits Requested Visits Authorized [id number] Ref Not Required PCP Requested Referral 06/06/2023 06/05/2024 1 1 [facility] for referral (narrative)* Diagnostic Procedure Only (Routine) - Closed Specialty Diagnoses / Procedures Referred By Contac t Referred To Contact MR IMAGING Diagnoses Post concussion syndrome Intractable acute post-traumatic headache Dizziness Cervicalgia Procedures MRI CERVICAL SPINE WO IVCON MRI SPINAL CANAL CERVICAL W/O CONTRAST MATRL Ivette Mejia Jr., MD [address] [facility] [address] [place] [address] [place] [address] Referral ID Status Reason Start Date Expiration Date V isits Requested Visits Authorized [id number] Closed Auto-Generat ed Referral Patient Cleared - [...] CONTRAST MATERIAL Ivette Mejia Jr., MD [address] [place] [address] [place] [address] Referral ID Status Reason Start Date Expiration Date V isits Requested Visits Authorized [id number] Closed Auto-Generat ed Referral Patient Cleared - Admin/Chairm an/Director advise to proceed or did not respond 02/26/2023 02/28/2023 1 1 [facility] for referral (narrative)* Diagnostic Procedure Only (Routine) - Pending Review Specialty Diagnoses / Procedures Referred By Contac t Referred To Contact BR IMAGING Diagnoses Encounter for screening mammogram for malignant neoplasm of breast Procedures FLASH SCREENING W JAQUELIN SCREENING DIGITAL BREAST TOMOSYNTHESIS BI SCREENING MAMMOGRAPHY BI 2-VIEW BREAST INC CAD Ivette Grimes MD [address] [place] [address] [facility] [address] [place] [address] Referral ID Status Reason Start Date Expiration Date Visits Requested Visits Authorized [id number] Pending Review Auto-Generat ed Referral 12/09/2023 01/07/2025 1 1 [facility] for referral (narrative)* Diagnostic Procedure Only (Urgent) - Closed Specialty Diagnoses / Procedures Referred By Contac t Referred To Contact XR IMAGING Diagnoses Pain of right heel Procedures XR FOOT GENERAL 3V AP/LAT/OBL RIGHT RADEX FOOT COMPLETE MINIMUM 3 VIEWS Nicole Anton PA-C [address] [place] [address] [place] [address] Referral ID Status Reason Start Date Expiration Date V isits Requested Visits Authorized [id number] Closed Auto-Generate d Referral 05/28/2023 06/26/2024 1 1 [facility] for referral (narrative)No reason for referral information [facility] Work Phone: Reason for visit Narrative* Diagnostic Procedure Only (Routine) - Closed Specialty Diagnoses / Procedures Referred By Contac t Referred To Contact MR IMAGING Diagnoses Post concussion syndrome Intractable acute post-traumatic headache Dizziness Cervicalgia Procedures MRI CERVICAL SPINE WO IVCON MRI SPINAL CANAL CERVICAL W/O CONTRAST Ivette Ansari Jr., MD [address] [phone] [place] [address] Referral ID Status Reason Start Date Expiration Date V isits Requested Visits Authorized [id number] Closed Auto-Generat ed Referral Patient Cleared - Admin/Chairm an/Director advise to proceed or did not respond 02/26/2023 02/28/2023 1 1 [facility] for visit Narrative* Diagnostic Procedure Only (Urgent) - Closed Specialty Diagnoses / Procedures Referred By Contac t Referred To Contact XR IMAGING Diagnoses Pain of right heel Procedures XR FOOT GENERAL 3V AP/LAT/OBL RIGHT RADEX FOOT COMPLETE MINIMUM 3 VIEWS Nicole Anton, PA-C [address] [facility] [place] [address] [place] [address] Referral ID Status Reason Start Date Expiration Date V isits Requested Visits Authorized [id number] Closed Auto-Generate d Referral 05/28/2023 06/26/2024 1 1 [facility] Family History Relationship Condition Age at Onset Recorded Date/T kourtney father Diabetes mellitus Unknown Myocardial infarction Unknown Malignant neoplasm of pancreas Unknown mother Alcohol abuse Unknown Drug abuse Unknown grandfather Diabetes mellitus Unknown grandmother Malignant neoplasm of lung Unknown grandmother Cardiac disease Unknown Advance Directives Advance Directive Response Recorded Date/ Time Advance Directives No November 21, 2021 3:58pm Living Will No November 21 3:58pm Power of Tugger Operator No November 21, 2021 3:58pm Advance Directive Response Recorded Date/ Time Advance Directives No November 21, 2021 3:58pm Living Will No February 27, 2022 10:01am Power of Tugger Operator No February 27 10:01am Advance Directive Response Recorded Date/ Time Advance Directives No November 21, 2021 2:58pm Living Will No February 27, 2022 9:01am Power of Tugger Operator No February 27 9:01am Advance Directive Response Recorded Date/ Time Advance Directives No November 21, 2021 2:58pm Living Will No November 24 11:49am Power of Tugger Operator No November 24, 2022 11:49am Advance Directive Response Recorded Date/ Time Advance Directives No November 21, 2021 2:58pm Living Will No November 27 3:43pm Power of Tugger Operator No November 27, 2022 3:43pm Advance Directive Response Recorded Date/ Time Advance Directives No November 21, 2021 3:58pm Living Will No December 03 7:35pm Power of Tugger Operator No December 03, 2022 7:35pm Advance Directive Response Recorded Date/ Time Advance Directives No November 21, 2021 3:58pm Living Will No May 20, 2023 9:41pm Power of Tugger Operator No May 20 3 9:41pm Advance Directive Response Recorded Date/ Time Advance Directives No November 21, 2021 3:58pm Living Will No August 05 3 9:54am Power of Tugger Operator No August 05 023 9:54am Advance Directive Response Recorded Date/ Time Advance Directives No November 21, 2021 2:58pm Living Will No August 05 3 12:04pm Power of Tugger Operator No August 05 2 023 12:04pm Advance Directive Response Recorded Date/ Time Advance Directives No November 21, 2021 2:58pm Living Will No October 27, 2 023 4:06pm Power of Tugger Operator No October 27, 2023 4:06pm Advance Directive Response Recorded Date/ Time Advance Directives No November 21, 2021 3:58pm Living Will No February 04, 2024 1:16am Power of Tugger Operator No February 03 1:16am Advance Directive Response Recorded Date/ Time Advance Directives No October 07, 2024 8:43am Living Will No October 16, 2 024 10:17pm Do you have a Healthcare Power of Tugger Operator? No October 16, 2024 10:17pm Living Will No November 11 7:01am Do you have a Healthcare Power of Tugger Operator? No November 11, 2024 7:01am Advance Directive [...] migrainosus Procedures CONSULT TO HEADACHE CLINIC OFFICE/OUTPATIENT [facility] 60-74 MINUTES Tara Gillette, THOM.TRANSFER PROFESSOR [address] [place] [address] Referral ID Status Reason Start Date Expiration Date Visits Requested Visits Authorized [id number] Authorized PCP Requested Referral 06/07/2022 06/07/2023 1 1 Specialty Diagnoses / Procedures Referred By Contac t Referred To Contact MR IMAGING Diagnoses Post concussion syndrome Intractable acute post-traumatic headache Dizziness Cervicalgia Procedures MRI CERVICAL SPINE WO IVCON MRI SPINAL CANAL CERVICAL W/O CONTRAST MATRL Ivette Mejia Jr., MD [address] [facility] [address] [place] [address] Mr Imaging Referral ID Status Reason Start Date Expiration Date Visits Requested Visits Authorized [id number] Pending Review Auto-Generat ed Referral 12/07/2022 01/06/2024 1 1 Specialty Diagnoses / Procedures Referred By Contac t Referred To Contact MR IMAGING Diagnoses Post concussion syndrome Intractable acute post-traumatic headache Dizziness Cervicalgia Procedures MRI BRAIN WO IVCON MRI BRAIN BRAIN STEM W/O CONTRAST MATERIAL Ivette Mejia Jr., MD [address] [facility] [address] [place] [address] Mr Imaging Referral ID Status Reason Start Date Expiration Date Visits Requested Visits Authorized [id number] Pending Review Auto-Generat ed Referral 12/07/2022 01/06/2024 1 1 Specialty Diagnoses / Procedures Referred By Contac t Referred To Contact CT IMAGING Diagnoses Soft tissue mass Procedures CT NECK SOFT TISSUE W IVCON CT SOFT TISSUE NECK W/CONTRAST MATERIAL Ivette Grimes MD [address] [place] [address] Ct Imaging Referral ID Status Reason Start Date Expiration Date Visits Requested Visits Authorized [id number] Pending Review Auto-Generat ed Referral 02/28/2023 03/29/2024 1 1 Specialty Diagnoses / Procedures Referred By Contac t Referred To Contact [facility] Diagnoses Post concussive syndrome Procedures CONSULT TO SPEECH THERAPY OFFICE/OUTPATIENT [facility] 60-74 MINUTES Fatuma Beckford PA-C [address] [place] [address] [facility] [place] [address] [place] [address] Referral ID Status Reason Start Date Expiration Date Visits Requested Visits Authorized [id number] Pending Review Auto-Generat ed Referral 05/17/2023 05/16/2024 1 1 Specialty Diagnoses / Procedures Referred By Contac t Referred To Contact Fatuma Beckford PA-C [address] [place] [id number] Referral ID Status Reason Start Date Expiration Date Visits Re quested Visits Authorized [id number] Closed 1 1 Specialty Diagnoses / Procedures Referred By Contac t Referred To Contact Diagnoses Type 2 diabetes mellitus with microalbuminuria, with long-term current use of insulin ([facility]) Ivette Grimes MD [address] [place] [address] Referral ID Status Reason Start Date Expiration Date Visits Re quested Visits Authorized [id number] Closed 1 1 Chief Complaint and Reason [...] DISC/ DN/ RX HERE 2 ORDERING JOSE MEJIA & SYDNEY SCREENING Reason for Visit Segmental and somati [...] Y FU 2 ORDERING JOSE MOBLEY SCREENING LUMBAR DISC/ DN/ RX HERE ABN [...] of lumbosacral region April 05, 2025 10:22am Chief Complaint Admit Date BACK PAIN February 04, 2025 2:21 pm Back pain March 09, 2025 9:17am LEFT SHOULDER March 22, 2025 8:58a m BACK PAIN March 22, 2025 9:33a m BACK PAIN April 05, 2025 10:22 am PAIN, WEAKNESS, FAILED PT April 17 11:55am SHOULDER PAIN. RX HERE April 20, 2025 1 0:30am BACK PAIN April 21, 2025 9:49 am Reason for Visit Admit Date Segmental [...] Disc displacement, lumbar April 05, 2025 10:22am Segmental and somatic dysfunction of cer vical region April 21, 2025 9:49am Segmental and somatic dysfunction of lum bar region April 21, 2025 9:49am Segmental and somatic dysfunction of pel jalil region April 21, 2025 9:49am Segmental and somatic dysfunction of tho racic region April 21, 2025 9:49am Disc displacement, lumbar April 21 9:49am Chief Complaint Admit Date BACK PAIN February 04, 2025 2:21 pm Back pain March 09, 2025 9:17am LEFT SHOULDER March 22, 2025 8:58a m BACK PAIN March 22, 2025 9:33a m BACK PAIN April 05, 2025 10:22 am PAIN, WEAKNESS, FAILED PT April 17 11:55am BACK PAIN April 21, 2025 9:49 am SHOULDER PAIN. RX HERE May 05, 2025 12 :30pm LEFT SHOULDER May 06, 2025 10:02 am Reason for Visit Admit Date Segmental [...] Disc displacement, lumbar April 05, 2025 10:22am Segmental and somatic dysfunction of cer vical region April 21, 2025 9:49am Segmental and somatic dysfunction of lum bar region April 21, 2025 9:49am Segmental and somatic dysfunction of pel jalil region April 21, 2025 9:49am Segmental and somatic dysfunction of tho racic region April 21, 2025 9:49am Disc displacement, lumbar April 21 9:49am Left shoulder pain May 06, 2025 10:02 am Chief Complaint Admit Date BACK PAIN February 04, 2025 2:21 pm Back pain March 09, 2025 9:17am LEFT SHOULDER March 22, 2025 8:58a m BACK PAIN March 22, 2025 9:33a m BACK PAIN April 05, 2025 10:22 am PAIN, WEAKNESS, FAILED PT April 17 11:55am BACK PAIN April 21, 2025 9:49 am LEFT SHOULDER May 06, 2025 10:02 am SHOULDER PAIN. RX HERE May 11, 2025 9: 30am BACK PAIN June 01, 2025 10:3 0am Reason for Visit Admit Date Segmental and [...] Disc displacement, lumbar April 05, 2025 10:22am Segmental and somatic dysfunction of cer vical region April 21, 2025 9:49am Segmental and somatic dysfunction of lum bar region April 21, 2025 9:49am Segmental and somatic dysfunction of pel jalil region April 21, 2025 9:49am Segmental and somatic dysfunction of tho racic region April 21, 2025 9:49am Disc displacement, lumbar April 21 9:49am Left shoulder pain May 06, 2025 10:02 am Segmental and somatic dysfunction of cer vical region June 01, 2025 10:30am Segmental and somatic dysfunction of lum bar region June 01, 2025 10:30am Segmental and somatic dysfunction of pel jalil region June 01, 2025 10:30am Segmental and somatic dysfunction of tho racic region June 01, 2025 10:30am Disc displacement, lumbar June 01 10:30am Summary Purpose Additional Source Comments Source Comments (unrecognize d section and content) In the event this informatio n is protected by the Federal Confidentiality of Alcohol and Drug Abuse Patient Records regulations: The Federal rules restrict any use of the information to criminally investigate or prosecute any alcohol or drug abuse patient.[facility] the event this information is protected by the Federal Confidentiality of Alcohol and Drug Abuse Patient Records regulations: The Federal rules restrict any use of the information to criminally investigate or prosecute any alcohol or drug abuse patient.[facility] the event this information is protected by the Federal Confidentiality of Alcohol and Drug Abuse Patient Records regulations: The Federal rules restrict any use of the information to criminally investigate or prosecute any alcohol or drug abuse patient.[facility] the event this information is protected by the Federal Confidentiality of Alcohol and Drug Abuse Patient Records regulations: The Federal rules restrict any use of the information to criminally investigate or prosecute any alcohol or drug abuse patient.[facility] the event this information is protected by the Federal Confidentiality of Alcohol and Drug Abuse Patient Records regulations: The Federal rules restrict any use of the information to criminally investigate or prosecute any alcohol or drug abuse patient.[facility] the event this information is protected by the Federal Confidentiality of Alcohol and Drug Abuse Patient Records regulations: The Federal rules restrict any use of the information to criminally investigate or prosecute any alcohol or drug abuse patient.[facility] the event this information is protected by the Federal Confidentiality of Alcohol and Drug Abuse Patient Records regulations: The Federal rules restrict any use of the information to criminally investigate or prosecute any alcohol or drug abuse patient.[facility]In the event this information is protected by the Federal Confidentiality of Alcohol and Drug Abuse Patient Records regulations: The Federal rules restrict any use of the information to criminally investigate or prosecute any alcohol or drug abuse patient.[facility] HospitalIn the event this information is protected by the Federal Confidentiality of Alcohol and Drug Abuse Patient Records regulations: The Federal rules restrict any use of the information to criminally investigate or prosecute any alcohol or drug abuse patient.[facility] HospitalIn the event this information is protected by the Federal Confidentiality of Alcohol and Drug Abuse Patient Records regulations: The Federal rules restrict any use of the information to criminally investigate or prosecute any alcohol or drug abuse patient.[facility] HospitalIn the event this information is protected by the Federal Confidentiality of Alcohol and Drug Abuse Patient Records regulations: The Federal rules restrict any use of the information to criminally investigate or prosecute any alcohol or drug abuse patient.[facility] HospitalIn the event this information is protected by the Federal Confidentiality of Alcohol and Drug Abuse Patient Records regulations: The Federal rules restrict any use of the information to criminally investigate or prosecute any alcohol or drug abuse patient.[facility] HospitalIn the event this information is protected by the Federal Confidentiality of Alcohol and Drug Abuse Patient Records regulations: The Federal rules restrict any use of the information to criminally investigate or prosecute any alcohol or drug abuse patient.[facility] HospitalIn the event this information is protected by the Federal Confidentiality of Alcohol and Drug Abuse Patient Records regulations: The Federal rules restrict any use of the information to criminally investigate or prosecute any alcohol or drug abuse patient.[facility] HospitalIn the event this information is protected by the Federal Confidentiality of Alcohol and Drug Abuse Patient Records regulations: The Federal rules restrict any use of the information to criminally investigate or prosecute any alcohol or drug abuse patient.[facility] HospitalIn the event this information is protected by the Federal Confidentiality of Alcohol and Drug Abuse Patient Records regulations: The Federal rules restrict any use of the information to criminally investigate or prosecute any alcohol or drug abuse patient.[facility] HospitalIn the event this information is protected by the Federal Confidentiality of Alcohol and Drug Abuse Patient Records regulations: The Federal rules restrict any use of the information to criminally investigate or prosecute any alcohol or drug abuse patient.[facility] the event this information is protected by the Federal Confidentiality of Alcohol and Drug Abuse Patient Records regulations: The Federal rules restrict any use of the information to criminally investigate or prosecute any alcohol or drug abuse patient.[facility] HospitalIn the event this information is protected by the Federal Confidentiality of Alcohol and Drug Abuse Patient Records regulations: The Federal rules restrict any use of the information to criminally investigate or prosecute any alcohol or drug abuse patient.[facility] HospitalIn the event this information is protected by the Federal Confidentiality of Alcohol and Drug Abuse Patient Records regulations: The Federal rules restrict any use of the information to criminally investigate or prosecute any alcohol or drug abuse patient.[facility] HospitalIn the event this information is protected by the Federal Confidentiality of Alcohol and Drug Abuse Patient Records regulations: The Federal rules restrict any use of the information to criminally investigate or prosecute any alcohol or drug abuse patient.[facility] HospitalIn the event this information is protected by the Federal Confidentiality of Alcohol and Drug Abuse Patient Records regulations: The Federal rules restrict any use of the information to criminally investigate or prosecute any alcohol or drug abuse patient.[facility] HospitalIn the event this information is protected by the Federal Confidentiality of Alcohol and Drug Abuse Patient Records regulations: The Federal rules restrict any use of the information to criminally investigate or prosecute any alcohol or drug abuse patient.[facility] HospitalIn the event this information is protected by the Federal Confidentiality of Alcohol and Drug Abuse Patient Records regulations: The Federal rules restrict any use of the information to criminally investigate or prosecute any alcohol or drug abuse patient.[facility] HospitalIn the event this information is protected by the Federal Confidentiality of Alcohol and Drug Abuse Patient Records regulations: The Federal rules restrict any use of the information to criminally investigate or prosecute any alcohol or drug abuse patient.[facility] HospitalIn the event this information is protected by the Federal Confidentiality of Alcohol and Drug Abuse Patient Records regulations: The Federal rules restrict any use of the information to criminally investigate or prosecute any alcohol or drug abuse patient.[facility] HospitalIn the event this information is protected by the Federal Confidentiality of Alcohol and Drug Abuse Patient Records regulations: The Federal rules restrict any use of the information to criminally investigate or prosecute any alcohol or drug abuse patient.[facility] HospitalIn the event this information is protected by the Federal Confidentiality of Alcohol and Drug Abuse Patient Records regulations: The Federal rules restrict any use of the information to criminally investigate or prosecute any alcohol or drug abuse patient.[facility] HospitalIn the event this information is protected by the Federal Confidentiality of Alcohol and Drug Abuse Patient Records regulations: The Federal rules restrict any use of the information to criminally investigate or prosecute any alcohol or drug abuse patient.[facility] HospitalIn the event this information is protected by the Federal Confidentiality of Alcohol and Drug Abuse Patient Records regulations: The Federal rules restrict any use of the information to criminally investigate or prosecute any alcohol or drug abuse patient.[facility] HospitalIn the event this information is protected by the Federal Confidentiality of Alcohol and Drug Abuse Patient Records regulations: The Federal rules restrict any use of the information to criminally investigate or prosecute any alcohol or drug abuse patient.[facility] HospitalIn the event this information is protected by the Federal Confidentiality of Alcohol and Drug Abuse Patient Records regulations: The Federal rules restrict any use of the information to criminally investigate or prosecute any alcohol or drug abuse patient.[facility] HospitalIn the event this information is protected by the Federal Confidentiality of Alcohol and Drug Abuse Patient Records regulations: The Federal rules restrict any use of the information to criminally investigate or prosecute any alcohol or drug abuse patient.[facility] HospitalIn the event this information is protected by the Federal Confidentiality of Alcohol and Drug Abuse Patient Records regulations: The Federal rules restrict any use of the information to criminally investigate or prosecute any alcohol or drug abuse patient.[facility] HospitalIn the event this information is protected by the Federal Confidentiality of Alcohol and Drug Abuse Patient Records regulations: The Federal rules restrict any use of the information to criminally investigate or prosecute any alcohol or drug abuse patient.[facility] HospitalIn the event this information is protected by the Federal Confidentiality of Alcohol and Drug Abuse Patient Records regulations: The Federal rules restrict any use of the information to criminally investigate or prosecute any alcohol or drug abuse patient.[facility] HospitalIn the event this information is protected by the Federal Confidentiality of Alcohol and Drug Abuse Patient Records regulations: The Federal rules restrict any use of the information to criminally investigate or prosecute any alcohol or drug abuse patient.[facility] HospitalIn the event this information is protected by the Federal Confidentiality of Alcohol and Drug Abuse Patient Records regulations: The Federal rules restrict any use of the information to criminally investigate or prosecute any alcohol or drug abuse patient.[facility] HospitalIn the event this information is protected by the Federal Confidentiality of Alcohol and Drug Abuse Patient Records regulations: The Federal rules restrict any use of the information to criminally investigate or prosecute any alcohol or drug abuse patient.[facility] HospitalIn the event this information is protected by the Federal Confidentiality of Alcohol and Drug Abuse Patient Records regulations: The Federal rules restrict any use of the information to criminally investigate or prosecute any alcohol or drug abuse patient.[facility] HospitalIn the event this information is protected by the Federal Confidentiality of Alcohol and Drug Abuse Patient Records regulations: The Federal rules restrict any use of the information to criminally investigate or prosecute any alcohol or drug abuse patient.[facility] HospitalIn the event this information is protected by the Federal Confidentiality of Alcohol and Drug Abuse Patient Records regulations: The Federal rules restrict any use of the information to criminally investigate or prosecute any alcohol or drug abuse patient.[facility] HospitalIn the event this information is protected by the Federal Confidentiality of Alcohol and Drug Abuse Patient Records regulations: The Federal rules restrict any use of the information to criminally investigate or prosecute any alcohol or drug abuse patient.[facility] HospitalIn the event this information is protected by the Federal Confidentiality of Alcohol and Drug Abuse Patient Records regulations: The Federal rules restrict any use of the information to criminally investigate or prosecute any alcohol or drug abuse patient.[facility] HospitalIn the event this information is protected by the Federal Confidentiality of Alcohol and Drug Abuse Patient Records regulations: The Federal rules restrict any use of the information to criminally investigate or prosecute any alcohol or drug abuse patient.[facility] HospitalIn the event this information is protected by the Federal Confidentiality of Alcohol and Drug Abuse Patient Records regulations: The Federal rules restrict any use of the information to criminally investigate or prosecute any alcohol or drug abuse patient.[facility] HospitalIn the event this information is protected by the Federal Confidentiality of Alcohol and Drug Abuse Patient Records regulations: The Federal rules restrict any use of the information to criminally investigate or prosecute any alcohol or drug abuse patient.[facility] HospitalIn the event this information is protected by the Federal Confidentiality of Alcohol and Drug Abuse Patient Records regulations: The Federal rules restrict any use of the information to criminally investigate or prosecute any alcohol or drug abuse patient.[facility] HospitalIn the event this information is protected by the Federal Confidentiality of Alcohol and Drug Abuse Patient Records regulations: The Federal rules restrict any use of the information to criminally investigate or prosecute any alcohol or drug abuse patient.[facility] HospitalIn the event this information is protected by the Federal Confidentiality of Alcohol and Drug Abuse Patient Records regulations: The Federal rules restrict any use of the information to criminally investigate or prosecute any alcohol or drug abuse patient.[facility] HospitalIn the event this information is protected by the Federal Confidentiality of Alcohol and Drug Abuse Patient Records regulations: The Federal rules restrict any use of the information to criminally investigate or prosecute any alcohol or drug abuse patient.[facility] HospitalIn the event this information is protected by the Federal Confidentiality of Alcohol and Drug Abuse Patient Records regulations: The Federal rules restrict any use of the information to criminally investigate or prosecute any alcohol or drug abuse patient.[facility] HospitalIn the event this information is protected by the Federal Confidentiality of Alcohol and Drug Abuse Patient Records regulations: The Federal rules restrict any use of the information to criminally investigate or prosecute any alcohol or drug abuse patient.[facility] HospitalIn the event this information is protected by the Federal Confidentiality of Alcohol and Drug Abuse Patient Records regulations: The Federal rules restrict any use of the information to criminally investigate or prosecute any alcohol or drug abuse patient.[facility] HospitalIn the event this information is protected by the Federal Confidentiality of Alcohol and Drug Abuse Patient Records regulations: The Federal rules restrict any use of the information to criminally investigate or prosecute any alcohol or drug abuse patient.[facility] HospitalIn the event this information is protected by the Federal Confidentiality of Alcohol and Drug Abuse Patient Records regulations: The Federal rules restrict any use of the information to criminally investigate or prosecute any alcohol or drug abuse patient.[facility] HospitalIn the event this information is protected by the Federal Confidentiality of Alcohol and Drug Abuse Patient Records regulations: The Federal rules restrict any use of the information to criminally investigate or prosecute any alcohol or drug abuse patient.[facility] HospitalIn the event this information is protected by the Federal Confidentiality of Alcohol and Drug Abuse Patient Records regulations: The Federal rules restrict any use of the information to criminally investigate or prosecute any alcohol or drug abuse patient.[facility] HospitalIn the event this information is protected by the Federal Confidentiality of Alcohol and Drug Abuse Patient Records regulations: The Federal rules restrict any use of the information to criminally investigate or prosecute any alcohol or drug abuse patient.[facility] HospitalIn the event this information is protected by the Federal Confidentiality of Alcohol and Drug Abuse Patient Records regulations: The Federal rules restrict any use of the information to criminally investigate or prosecute any alcohol or drug abuse patient.[facility] HospitalIn the event this information is protected by the Federal Confidentiality of Alcohol and Drug Abuse Patient Records regulations: The Federal rules restrict any use of the information to criminally investigate or prosecute any alcohol or drug abuse patient.[facility] HospitalIn the event this information is protected by the Federal Confidentiality of Alcohol and Drug Abuse Patient Records regulations: The Federal rules restrict any use of the information to criminally investigate or prosecute any alcohol or drug abuse patient.[facility] HospitalIn the event this information is protected by the Federal Confidentiality of Alcohol and Drug Abuse Patient Records regulations: The Federal rules restrict any use of the information to criminally investigate or prosecute any alcohol or drug abuse patient.[facility] HospitalIn the event this information is protected by the Federal Confidentiality of Alcohol and Drug Abuse Patient Records regulations: The Federal rules restrict any use of the information to criminally investigate or prosecute any alcohol or drug abuse patient.[facility] HospitalIn the event this information is protected by the Federal Confidentiality of Alcohol and Drug Abuse Patient Records regulations: The Federal rules restrict any use of the information to criminally investigate or prosecute any alcohol or drug abuse patient.[facility] HospitalIn the event this information is protected by the Federal Confidentiality of Alcohol and Drug Abuse Patient Records regulations: The Federal rules restrict any use of the information to criminally investigate or prosecute any alcohol or drug abuse patient.[facility] HospitalIn the event this information is protected by the Federal Confidentiality of Alcohol and Drug Abuse Patient Records regulations: The Federal rules restrict any use of the information to criminally investigate or prosecute any alcohol or drug abuse patient.[facility] the event this information is protected by the Federal Confidentiality of Alcohol and Drug Abuse Patient Records regulations: The Federal rules restrict any use of the information to criminally investigate or prosecute any alcohol or drug abuse patient.[facility] HospitalIn the event this information is protected by the Federal Confidentiality of Alcohol and Drug Abuse Patient Records regulations: The Federal rules restrict any use of the information to criminally investigate or prosecute any alcohol or drug abuse patient.[facility] HospitalIn the event this information is protected by the Federal Confidentiality of Alcohol and Drug Abuse Patient Records regulations: The Federal rules restrict any use of the information to criminally investigate or prosecute any alcohol or drug abuse patient.[facility] HospitalIn the event this information is protected by the Federal Confidentiality of Alcohol and Drug Abuse Patient Records regulations: The Federal rules restrict any use of the information to criminally investigate or prosecute any alcohol or drug abuse patient.[facility] HospitalIn the event this information is protected by the Federal Confidentiality of Alcohol and Drug Abuse Patient Records regulations: The Federal rules restrict any use of the information to criminally investigate or prosecute any alcohol or drug abuse patient.[facility] HospitalIn the event this information is protected by the Federal Confidentiality of Alcohol and Drug Abuse Patient Records regulations: The Federal rules restrict any use of the information to criminally investigate or prosecute any alcohol or drug abuse patient.[facility] HospitalIn the event this information is protected by the Federal Confidentiality of Alcohol and Drug Abuse Patient Records regulations: The Federal rules restrict any use of the information to criminally investigate or prosecute any alcohol or drug abuse patient.[facility] HospitalIn the event this information is protected by the Federal Confidentiality of Alcohol and Drug Abuse Patient Records regulations: The Federal rules restrict any use of the information to criminally investigate or prosecute any alcohol or drug abuse patient.[facility] HospitalIn the event this information is protected by the Federal Confidentiality of Alcohol and Drug Abuse Patient Records regulations: The Federal rules restrict any use of the information to criminally investigate or prosecute any alcohol or drug abuse patient.[facility] HospitalIn the event this information is protected by the Federal Confidentiality of Alcohol and Drug Abuse Patient Records regulations: The Federal rules restrict any use of the information to criminally investigate or prosecute any alcohol or drug abuse patient.[facility] HospitalIn the event this information is protected by the Federal Confidentiality of Alcohol and Drug Abuse Patient Records regulations: The Federal rules restrict any use of the information to criminally investigate or prosecute any alcohol or drug abuse patient.[facility] HospitalIn the event this information is protected by the Federal Confidentiality of Alcohol and Drug Abuse Patient Records regulations: The Federal rules restrict any use of the information to criminally investigate or prosecute any alcohol or drug abuse patient.[facility] HospitalIn the event this information is protected by the Federal Confidentiality of Alcohol and Drug Abuse Patient Records regulations: The Federal rules restrict any use of the information to criminally investigate or prosecute any alcohol or drug abuse patient.[facility] HospitalIn the event this information is protected by the Federal Confidentiality of Alcohol and Drug Abuse Patient Records regulations: The Federal rules restrict any use of the information to criminally investigate or prosecute any alcohol or drug abuse patient.[facility] HospitalIn the event this information is protected by the Federal Confidentiality of Alcohol and Drug Abuse Patient Records regulations: The Federal rules restrict any use of the information to criminally investigate or prosecute any alcohol or drug abuse patient.[facility] HospitalIn the event this information is protected by the Federal Confidentiality of Alcohol and Drug Abuse Patient Records regulations: The Federal rules restrict any use of the information to criminally investigate or prosecute any alcohol or drug abuse patient.[facility] HospitalIn the event this information is protected by the Federal Confidentiality of Alcohol and Drug Abuse Patient Records regulations: The Federal rules restrict any use of the information to criminally investigate or prosecute any alcohol or drug abuse patient.[facility] HospitalIn the event this information is protected by the Federal Confidentiality of Alcohol and Drug Abuse Patient Records regulations: The Federal rules restrict any use of the information to criminally investigate or prosecute any alcohol or drug abuse patient.[facility] HospitalIn the event this information is protected by the Federal Confidentiality of Alcohol and Drug Abuse Patient Records regulations: The Federal rules restrict any use of the information to criminally investigate or prosecute any alcohol or drug abuse patient.[facility] HospitalIn the event this information is protected by the Federal Confidentiality of Alcohol and Drug Abuse Patient Records regulations: The Federal rules restrict any use of the information to criminally investigate or prosecute any alcohol or drug abuse patient.[facility] HospitalIn the event this information is protected by the Federal Confidentiality of Alcohol and Drug Abuse Patient Records regulations: The Federal rules restrict any use of the information to criminally investigate or prosecute any alcohol or drug abuse patient.[facility] HospitalIn the event this information is protected by the Federal Confidentiality of Alcohol and Drug Abuse Patient Records regulations: The Federal rules restrict any use of the information to criminally investigate or prosecute any alcohol or drug abuse patient.[facility] HospitalIn the event this information is protected by the Federal Confidentiality of Alcohol and Drug Abuse Patient Records regulations: The Federal rules restrict any use of the information to criminally investigate or prosecute any alcohol or drug abuse patient.[facility] HospitalIn the event this information is protected by the Federal Confidentiality of Alcohol and Drug Abuse Patient Records regulations: The Federal rules restrict any use of the information to criminally investigate or prosecute any alcohol or drug abuse patient.[facility] HospitalIn the event this information is protected by the Federal Confidentiality of Alcohol and Drug Abuse Patient Records regulations: The Federal rules restrict any use of the information to criminally investigate or prosecute any alcohol or drug abuse patient.[facility] HospitalIn the event this information is protected by the Federal Confidentiality of Alcohol and Drug Abuse Patient Records regulations: The Federal rules restrict any use of the information to criminally investigate or prosecute any alcohol or drug abuse patient.[facility] HospitalIn the event this information is protected by the Federal Confidentiality of Alcohol and Drug Abuse Patient Records regulations: The Federal rules restrict any use of the information to criminally investigate or prosecute any alcohol or drug abuse patient.[facility] HospitalIn the event this information is protected by the Federal Confidentiality of Alcohol and Drug Abuse Patient Records regulations: The Federal rules restrict any use of the information to criminally investigate or prosecute any alcohol or drug abuse patient.[facility] HospitalIn the event this information is protected by the Federal Confidentiality of Alcohol and Drug Abuse Patient Records regulations: The Federal rules restrict any use of the information to criminally investigate or prosecute any alcohol or drug abuse patient.[facility] HospitalIn the event this information is protected by the Federal Confidentiality of Alcohol and Drug Abuse Patient Records regulations: The Federal rules restrict any use of the information to criminally investigate or prosecute any alcohol or drug abuse patient.[facility] HospitalIn the event this information is protected by the Federal Confidentiality of Alcohol and Drug Abuse Patient Records regulations: The Federal rules restrict any use of the information to criminally investigate or prosecute any alcohol or drug abuse patient.[facility] HospitalIn the event this information is protected by the Federal Confidentiality of Alcohol and Drug Abuse Patient Records regulations: The Federal rules restrict any use of the information to criminally investigate or prosecute any alcohol or drug abuse patient.[facility] HospitalIn the event this information is protected by the Federal Confidentiality of Alcohol and Drug Abuse Patient Records regulations: The Federal rules restrict any use of the information to criminally investigate or prosecute any alcohol or drug abuse patient.[facility] HospitalIn the event this information is protected by the Federal Confidentiality of Alcohol and Drug Abuse Patient Records regulations: The Federal rules restrict any use of the information to criminally investigate or prosecute any alcohol or drug abuse patient.[facility] HospitalIn the event this information is protected by the Federal Confidentiality of Alcohol and Drug Abuse Patient Records regulations: The Federal rules restrict any use of the information to criminally investigate or prosecute any alcohol or drug abuse patient.[facility] HospitalIn the event this information is protected by the Federal Confidentiality of Alcohol and Drug Abuse Patient Records regulations: The Federal rules restrict any use of the information to criminally investigate or prosecute any alcohol or drug abuse patient.[facility] HospitalIn the event this information is protected by the Federal Confidentiality of Alcohol and Drug Abuse Patient Records regulations: The Federal rules restrict any use of the information to criminally investigate or prosecute any alcohol or drug abuse patient.[facility] HospitalIn the event this information is protected by the Federal Confidentiality of Alcohol and Drug Abuse Patient Records regulations: The Federal rules restrict any use of the information to criminally investigate or prosecute any alcohol or drug abuse patient.[facility] HospitalIn the event this information is protected by the Federal Confidentiality of Alcohol and Drug Abuse Patient Records regulations: The Federal rules restrict any use of the information to criminally investigate or prosecute any alcohol or drug abuse patient.[facility] HospitalIn the event this information is protected by the Federal Confidentiality of Alcohol and Drug Abuse Patient Records regulations: The Federal rules restrict any use of the information to criminally investigate or prosecute any alcohol or drug abuse patient.[facility] HospitalIn the event this information is protected by the Federal Confidentiality of Alcohol and Drug Abuse Patient Records regulations: The Federal rules restrict any use of the information to criminally investigate or prosecute any alcohol or drug abuse patient.[facility] HospitalIn the event this information is protected by the Federal Confidentiality of Alcohol and Drug Abuse Patient Records regulations: The Federal rules restrict any use of the information to criminally investigate or prosecute any alcohol or drug abuse patient.[facility] HospitalIn the event this information is protected by the Federal Confidentiality of Alcohol and Drug Abuse Patient Records regulations: The Federal rules restrict any use of the information to criminally investigate or prosecute any alcohol or drug abuse patient.[facility] HospitalIn the event this information is protected by the Federal Confidentiality of Alcohol and Drug Abuse Patient Records regulations: The Federal rules restrict any use of the information to criminally investigate or prosecute any alcohol or drug abuse patient.[facility] HospitalIn the event this information is protected by the Federal Confidentiality of Alcohol and Drug Abuse Patient Records regulations: The Federal rules restrict any use of the information to criminally investigate or prosecute any alcohol or drug abuse patient.[facility] HospitalIn the event this information is protected by the Federal Confidentiality of Alcohol and Drug Abuse Patient Records regulations: The Federal rules restrict any use of the information to criminally investigate or prosecute any alcohol or drug abuse patient.[facility] HospitalIn the event this information is protected by the Federal Confidentiality of Alcohol and Drug Abuse Patient Records regulations: The Federal rules restrict any use of the information to criminally investigate or prosecute any alcohol or drug abuse patient.[facility] HospitalIn the event this information is protected by the Federal Confidentiality of Alcohol and Drug Abuse Patient Records regulations: The Federal rules restrict any use of the information to criminally investigate or prosecute any alcohol or drug abuse patient.[facility] HospitalIn the event this information is protected by the Federal Confidentiality of Alcohol and Drug Abuse Patient Records regulations: The Federal rules restrict any use of the information to criminally investigate or prosecute any alcohol or drug abuse patient.[facility] HospitalIn the event this information is protected by the Federal Confidentiality of Alcohol and Drug Abuse Patient Records regulations: The Federal rules restrict any use of the information to criminally investigate or prosecute any alcohol or drug abuse patient.[facility] the event this information is protected by the Federal Confidentiality of Alcohol and Drug Abuse Patient Records regulations: The Federal rules restrict any use of the information to criminally investigate or prosecute any alcohol or drug abuse patient.[facility] HospitalIn the event this information is protected by the Federal Confidentiality of Alcohol and Drug Abuse Patient Records regulations: The Federal rules restrict any use of the information to criminally investigate or prosecute any alcohol or drug abuse patient.[facility] HospitalIn the event this information is protected by the Federal Confidentiality of Alcohol and Drug Abuse Patient Records regulations: The Federal rules restrict any use of the information to criminally investigate or prosecute any alcohol or drug abuse patient.[facility] HospitalIn the event this information is protected by the Federal Confidentiality of Alcohol and Drug Abuse Patient Records regulations: The Federal rules restrict any use of the information to criminally investigate or prosecute any alcohol or drug abuse patient.[facility] HospitalIn the event this information is protected by the Federal Confidentiality of Alcohol and Drug Abuse Patient Records regulations: The Federal rules restrict any use of the information to criminally investigate or prosecute any alcohol or drug abuse patient.[facility] HospitalIn the event this information is protected by the Federal Confidentiality of Alcohol and Drug Abuse Patient Records regulations: The Federal rules restrict any use of the information to criminally investigate or prosecute any alcohol or drug abuse patient.[facility] HospitalIn the event this information is protected by the Federal Confidentiality of Alcohol and Drug Abuse Patient Records regulations: The Federal rules restrict any use of the information to criminally investigate or prosecute any alcohol or drug abuse patient.[facility] HospitalIn the event this information is protected by the Federal Confidentiality of Alcohol and Drug Abuse Patient Records regulations: The Federal rules restrict any use of the information to criminally investigate or prosecute any alcohol or drug abuse patient.[facility] HospitalIn the event this information is protected by the Federal Confidentiality of Alcohol and Drug Abuse Patient Records regulations: The Federal rules restrict any use of the information to criminally investigate or prosecute any alcohol or drug abuse patient.[facility] HospitalIn the event this information is protected by the Federal Confidentiality of Alcohol and Drug Abuse Patient Records regulations: The Federal rules restrict any use of the information to criminally investigate or prosecute any alcohol or drug abuse patient.[facility] HospitalIn the event this information is protected by the Federal Confidentiality of Alcohol and Drug Abuse Patient Records regulations: The Federal rules restrict any use of the information to criminally investigate or prosecute any alcohol or drug abuse patient.[facility] HospitalIn the event this information is protected by the Federal Confidentiality of Alcohol and Drug Abuse Patient Records regulations: The Federal rules restrict any use of the information to criminally investigate or prosecute any alcohol or drug abuse patient.[facility] HospitalIn the event this information is protected by the Federal Confidentiality of Alcohol and Drug Abuse Patient Records regulations: The Federal rules restrict any use of the information to criminally investigate or prosecute any alcohol or drug abuse patient.[facility] HospitalIn the event this information is protected by the Federal Confidentiality of Alcohol and Drug Abuse Patient Records regulations: The Federal rules restrict any use of the information to criminally investigate or prosecute any alcohol or drug abuse patient.[facility] HospitalIn the event this information is protected by the Federal Confidentiality of Alcohol and Drug Abuse Patient Records regulations: The Federal rules restrict any use of the information to criminally investigate or prosecute any alcohol or drug abuse patient.[facility] HospitalIn the event this information is protected by the Federal Confidentiality of Alcohol and Drug Abuse Patient Records regulations: The Federal rules restrict any use of the information to criminally investigate or prosecute any alcohol or drug abuse patient.[facility] HospitalIn the event this information is protected by the Federal Confidentiality of Alcohol and Drug Abuse Patient Records regulations: The Federal rules restrict any use of the information to criminally investigate or prosecute any alcohol or drug abuse patient.[facility] HospitalIn the event this information is protected by the Federal Confidentiality of Alcohol and Drug Abuse Patient Records regulations: The Federal rules restrict any use of the information to criminally investigate or prosecute any alcohol or drug abuse patient.[facility] HospitalIn the event this information is protected by the Federal Confidentiality of Alcohol and Drug Abuse Patient Records regulations: The Federal rules restrict any use of the information to criminally investigate or prosecute any alcohol or drug abuse patient.[facility] HospitalIn the event this information is protected by the Federal Confidentiality of Alcohol and Drug Abuse Patient Records regulations: The Federal rules restrict any use of the information to criminally investigate or prosecute any alcohol or drug abuse patient.[facility] HospitalIn the event this information is protected by the Federal Confidentiality of Alcohol and Drug Abuse Patient Records regulations: The Federal rules restrict any use of the information to criminally investigate or prosecute any alcohol or drug abuse patient.[facility] HospitalIn the event this information is protected by the Federal Confidentiality of Alcohol and Drug Abuse Patient Records regulations: The Federal rules restrict any use of the information to criminally investigate or prosecute any alcohol or drug abuse patient.[facility] HospitalIn the event this information is protected by the Federal Confidentiality of Alcohol and Drug Abuse Patient Records regulations: The Federal rules restrict any use of the information to criminally investigate or prosecute any alcohol or drug abuse patient.[facility] HospitalIn the event this information is protected by the Federal Confidentiality of Alcohol and Drug Abuse Patient Records regulations: The Federal rules restrict any use of the information to criminally investigate or prosecute any alcohol or drug abuse patient.[facility] HospitalIn the event this information is protected by the Federal Confidentiality of Alcohol and Drug Abuse Patient Records regulations: The Federal rules restrict any use of the information to criminally investigate or prosecute any alcohol or drug abuse patient.[facility] HospitalIn the event this information is protected by the Federal Confidentiality of Alcohol and Drug Abuse Patient Records regulations: The Federal rules restrict any use of the information to criminally investigate or prosecute any alcohol or drug abuse patient.[facility] HospitalIn the event this information is protected by the Federal Confidentiality of Alcohol and Drug Abuse Patient Records regulations: The Federal rules restrict any use of the information to criminally investigate or prosecute any alcohol or drug abuse patient.[facility] HospitalIn the event this information is protected by the Federal Confidentiality of Alcohol and Drug Abuse Patient Records regulations: The Federal rules restrict any use of the information to criminally investigate or prosecute any alcohol or drug abuse patient.[facility] HospitalIn the event this information is protected by the Federal Confidentiality of Alcohol and Drug Abuse Patient Records regulations: The Federal rules restrict any use of the information to criminally investigate or prosecute any alcohol or drug abuse patient.[facility] HospitalIn the event this information is protected by the Federal Confidentiality of Alcohol and Drug Abuse Patient Records regulations: The Federal rules restrict any use of the information to criminally investigate or prosecute any alcohol or drug abuse patient.[facility] HospitalIn the event this information is protected by the Federal Confidentiality of Alcohol and Drug Abuse Patient Records regulations: The Federal rules restrict any use of the information to criminally investigate or prosecute any alcohol or drug abuse patient.[facility] HospitalIn the event this information is protected by the Federal Confidentiality of Alcohol and Drug Abuse Patient Records regulations: The Federal rules restrict any use of the information to criminally investigate or prosecute any alcohol or drug abuse patient.[facility] HospitalIn the event this information is protected by the Federal Confidentiality of Alcohol and Drug Abuse Patient Records regulations: The Federal rules restrict any use of the information to criminally investigate or prosecute any alcohol or drug abuse patient.[facility] HospitalIn the event this information is protected by the Federal Confidentiality of Alcohol and Drug Abuse Patient Records regulations: The Federal rules restrict any use of the information to criminally investigate or prosecute any alcohol or drug abuse patient.[facility] HospitalIn the event this information is protected by the Federal Confidentiality of Alcohol and Drug Abuse Patient Records regulations: The Federal rules restrict any use of the information to criminally investigate or prosecute any alcohol or drug abuse patient.[facility] HospitalIn the event this information is protected by the Federal Confidentiality of Alcohol and Drug Abuse Patient Records regulations: The Federal rules restrict any use of the information to criminally investigate or prosecute any alcohol or drug abuse patient.[facility] HospitalIn the event this information is protected by the Federal Confidentiality of Alcohol and Drug Abuse Patient Records regulations: The Federal rules restrict any use of the information to criminally investigate or prosecute any alcohol or drug abuse patient.[facility] HospitalIn the event this information is protected by the Federal Confidentiality of Alcohol and Drug Abuse Patient Records regulations: The Federal rules restrict any use of the information to criminally investigate or prosecute any alcohol or drug abuse patient.[facility] HospitalIn the event this information is protected by the Federal Confidentiality of Alcohol and Drug Abuse Patient Records regulations: The Federal rules restrict any use of the information to criminally investigate or prosecute any alcohol or drug abuse patient.[facility] HospitalIn the event this information is protected by the Federal Confidentiality of Alcohol and Drug Abuse Patient Records regulations: The Federal rules restrict any use of the information to criminally investigate or prosecute any alcohol or drug abuse patient.[facility] HospitalIn the event this information is protected by the Federal Confidentiality of Alcohol and Drug Abuse Patient Records regulations: The Federal rules restrict any use of the information to criminally investigate or prosecute any alcohol or drug abuse patient.[facility] HospitalIn the event this information is protected by the Federal Confidentiality of Alcohol and Drug Abuse Patient Records regulations: The Federal rules restrict any use of the information to criminally investigate or prosecute any alcohol or drug abuse patient.[facility] HospitalIn the event this information is protected by the Federal Confidentiality of Alcohol and Drug Abuse Patient Records regulations: The Federal rules restrict any use of the information to criminally investigate or prosecute any alcohol or drug abuse patient.[facility] HospitalIn the event this information is protected by the Federal Confidentiality of Alcohol and Drug Abuse Patient Records regulations: The Federal rules restrict any use of the information to criminally investigate or prosecute any alcohol or drug abuse patient.[facility] HospitalIn the event this information is protected by the Federal Confidentiality of Alcohol and Drug Abuse Patient Records regulations: The Federal rules restrict any use of the information to criminally investigate or prosecute any alcohol or drug abuse patient.[facility] HospitalIn the event this information is protected by the Federal Confidentiality of Alcohol and Drug Abuse Patient Records regulations: The Federal rules restrict any use of the information to criminally investigate or prosecute any alcohol or drug abuse patient.[facility] HospitalIn the event this information is protected by the Federal Confidentiality of Alcohol and Drug Abuse Patient Records regulations: The Federal rules restrict any use of the information to criminally investigate or prosecute any alcohol or drug abuse patient.[facility] HospitalIn the event this information is protected by the Federal Confidentiality of Alcohol and Drug Abuse Patient Records regulations: The Federal rules restrict any use of the information to criminally investigate or prosecute any alcohol or drug abuse patient.[facility] HospitalIn the event this information is protected by the Federal Confidentiality of Alcohol and Drug Abuse Patient Records regulations: The Federal rules restrict any use of the information to criminally investigate or prosecute any alcohol or drug abuse patient.[facility] HospitalIn the event this information is protected by the Federal Confidentiality of Alcohol and Drug Abuse Patient Records regulations: The Federal rules restrict any use of the information to criminally investigate or prosecute any alcohol or drug abuse patient.[facility] the event this information is protected by the Federal Confidentiality of Alcohol and Drug Abuse Patient Records regulations: The Federal rules restrict any use of the information to criminally investigate or prosecute any alcohol or drug abuse patient.[facility] HospitalIn the event this information is protected by the Federal Confidentiality of Alcohol and Drug Abuse Patient Records regulations: The Federal rules restrict any use of the information to criminally investigate or prosecute any alcohol or drug abuse patient.[facility] HospitalIn the event this information is protected by the Federal Confidentiality of Alcohol and Drug Abuse Patient Records regulations: The Federal rules restrict any use of the information to criminally investigate or prosecute any alcohol or drug abuse patient.[facility] HospitalIn the event this information is protected by the Federal Confidentiality of Alcohol and Drug Abuse Patient Records regulations: The Federal rules restrict any use of the information to criminally investigate or prosecute any alcohol or drug abuse patient.[facility] [facility] the event this information is protected by the Federal Confidentiality of Alcohol and Drug Abuse Patient Records regulations: The Federal rules restrict any use of the information to criminally investigate or prosecute any alcohol or drug abuse patient.[facility] the event this information is protected by the Federal Confidentiality of Alcohol and Drug Abuse Patient Records regulations: The Federal rules restrict any use of the information to criminally investigate or prosecute any alcohol or drug abuse patient.[facility]In the event this information is protected by the Federal Confidentiality of Alcohol and Drug Abuse Patient Records regulations: The Federal rules restrict any use of the information to criminally investigate or prosecute any alcohol or drug abuse patient.[facility] the event this information is protected by the Federal Confidentiality of Alcohol and Drug Abuse Patient Records regulations: The Federal rules restrict any use of the information to criminally investigate or prosecute any alcohol or drug abuse patient.[facility]In the event this information is protected by the Federal Confidentiality of Alcohol and Drug Abuse Patient Records regulations: The Federal rules restrict any use of the information to criminally investigate or prosecute any alcohol or drug abuse patient.[facility] HospitalIn the event this information is protected by the Federal Confidentiality of Alcohol and Drug Abuse Patient Records regulations: The Federal rules restrict any use of the information to criminally investigate or prosecute any alcohol or drug abuse patient.[facility] HospitalIn the event this information is protected by the Federal Confidentiality of Alcohol and Drug Abuse Patient Records regulations: The Federal rules restrict any use of the information to criminally investigate or prosecute any alcohol or drug abuse patient.[facility] HospitalIn the event this information is protected by the Federal Confidentiality of Alcohol and Drug Abuse Patient Records regulations: The Federal rules restrict any use of the information to criminally investigate or prosecute any alcohol or drug abuse patient.[facility] HospitalIn the event this information is protected by the Federal Confidentiality of Alcohol and Drug Abuse Patient Records regulations: The Federal rules restrict any use of the information to criminally investigate or prosecute any alcohol or drug abuse patient.[facility] HospitalIn the event this information is protected by the Federal Confidentiality of Alcohol and Drug Abuse Patient Records regulations: The Federal rules restrict any use of the information to criminally investigate or prosecute any alcohol or drug abuse patient.[facility] HospitalIn the event this information is protected by the Federal Confidentiality of Alcohol and Drug Abuse Patient Records regulations: The Federal rules restrict any use of the information to criminally investigate or prosecute any alcohol or drug abuse patient.[facility] Reason for Visit (unrecogniz ed section and content) Reason Comments Follow Up Specialty Diagnoses / Procedures Referred By Contac t Referred To Contact Family Medicine / FAMILY MEDICINE Diagnoses Follow up. Procedures 4[place] [address] [place] [address] Ivette Grimes MD [address] [place] [address] Referral ID Status Reason Start Date Expiration Date V isits Requested Visits Authorized [id number] Pending Review 01/31/2023 05/01/2023 1 1 Reason Comments New Patient Specialty Diagnoses / Procedures Referred By Contac t Referred To Contact Pain Management Diagnoses Chronic left shoulder pain Procedures CONSULT TO PAIN MGT OFFICE/OUTPATIENT [facility] MDM 60-74 MINUTES Ivette Grimes MD [address] [place] [id number] Referral ID Status Reason Start Date Expiration Date V isits Requested Visits Authorized [id number] Closed PCP Requested Referral 01/22/2022 01/22/2023 1 [...] status migrainosus Procedures CONSULT TO NEUROLOGY OFFICE/OUTPATIENT [facility] MDM 60-74 MINUTES Ivette Grimes MD [address] [id number] Referral ID Status Reason Start Date Expiration Date V isits Requested Visits Authorized [id number] Closed PCP Requested Referral 12/25/2021 12/25/2022 1 1 Reason Onset Date Comments Refill Request 04/16/2022 Reason Comments Follow Up shoulder pain, switc h medication back to gabapentin Specialty Diagnoses / Procedures Referred By Petra t Referred To Contact Family Practice / FAMILY MEDICINE Diagnoses Follow-up exam follow up Procedures OFFICE/OUTPATIENT ESTABLISHED HIGH MDM 40-54 MIN MYC OFFICE VISIT Ivette Grimes MD [address] [place] [address] Ivette Grimes MD [address] [place] [address] Referral ID Status Reason Start Date Expiration Date Visits Re quested Visits Authorized [id number] Closed 04/17/2022 11/03/2022 1 1 Reason Onset Date Comments Refill Request 05/03/2022 Reason Comments Procedure Specialty Diagnoses / Procedures Referred By Petra t Referred To Contact Pain Management / PAIN MANAGEMENT Diagnoses Neuralgia and neuritis, unspecified Adhesive capsulitis of left shoulder ultrasound guided left suprascapular nerve blockade (no steroids) Procedures INJECTION AA&/STRD SUPRASCAPULAR NERVE US GUIDANCE NEEDLE PLACEMENT IMG S&I PROCEDURE 20 Elle Sanchez MD [address] [address] Elle Sanchez MD [address] [place] [address] Referral ID Status Reason Start Date Expiration Date Visits Re quested Visits Authorized [id number] Closed 05/10/2022 06/10/2022 1 1 Reason Comments Procedure Follow Up Reason Comments Follow Up Specialty Diagnoses / Procedures Referred By Contac t Referred To Contact Pain Management / PAIN MANAGEMENT Diagnoses OV & follow up inj Procedures OFFICE/OUTPATIENT ESTABLISHED MOD MDM 30-39 MIN EST PATIENT Elle Sanchez MD [address] [address] Adelina Mason, LICENSE CLERK.TRANSFER PROFESSOR [address] [place] [address] Referral ID Status Reason Start Date Expiration Date Visits Re quested Visits Authorized [id number] Closed 11/04/2021 11/03/2022 1 1 Reason Comments Appointment Reason Comments Headache follow up Specialty Diagnoses / Procedures Referred By Contac t Referred To Contact Neurology Diagnoses Migraine with aura, not intractable, without status migrainosus Procedures CONSULT TO NEUROLOGY OFFICE/OUTPATIENT [facility] 60-74 MINUTES Ivette Grimes MD [address] [place] [address] Reason Comments Orders Reason Onset Date Comments Refill Request 06/22/2022 Reason Onset Date Comments Refill Request 07/10/2022 Reason Comments Patient Update Injection questions Reason Comments Chronic Migraine X 6-7 years Specialty Diagnoses / Procedures Referred By Contac t Referred To Contact Diagnoses Intractable migraine without aura and without status migrainosus Procedures CONSULT TO HEADACHE CLINIC OFFICE/OUTPATIENT [facility] 60-74 MINUTES Tara Gillette APRN.TRANSFER PROFESSOR [address] [place] [address] Referral ID Status Reason Start Date Expiration Date V isits Requested Visits Authorized [id number] Closed PCP Requested Referral 06/07/2022 06/07/2023 1 [...] PT. Specialty Diagnoses / Procedures Referred By Contac t Referred To Contact Family Medicine / FAMILY MEDICINE Diagnoses Follow-up exam follow up Procedures OFFICE/OUTPATIENT [facility] 40-54 MIN MYC OFFICE VISIT Ivette Grimes MD [address] [place] [address] Ivette Grimes MD [address] [place] [address] Referral ID Status Reason Start Date Expiration Date V isits Requested Visits Authorized [id number] Authorized 04/17/2022 11/03/2022 99 99 Reason Comments Patient Update Reason Comments Follow Up Acute Visit Reason Comments Fatigue Specialty Diagnoses / Procedures Referred By Contac t Referred To Contact Family Medicine / FAMILY MEDICINE Diagnoses dizzy-follow up from virtual with Dr Bianchi 09/03 Procedures 4C EST Ivette Grimes MD [address] [place] [address] Ivette Grimes MD [address] [place] [address] Referral ID Status Reason Start Date Expiration Date Visits Re quested Visits Authorized [id number] Closed 09/04/2022 12/03/2022 1 1 Reason Onset Date Comments Refill Request 09/06/2022 Reason Comments Behavioral Health Social Work Reason Comments Medication Authorization Botox Approved Reason Onset Date Comments Refill Request 09/19/2022 Reason Comments Appointment Patient Question Reason Onset Date Comments Refill Request 10/05/2022 Reason Onset Date Comments Refill Request 10/06/2022 Reason Comments New Patient Evaluation Specialty Diagnoses / Procedures Referred By Contac t Referred To Contact Psychiatry / ADULT PSYCHIATRY Diagnoses Routine general medical examination at a health care facility NEW PATIENT Procedures OFFICE/OUTPATIENT NEW MODERATE MDM 45-59 MINUTES VIDEO PSYC/PSYL NEW Self Grace Coronel, LICENSE CLERK.TRANSFER PROFESSOR [address] [place] [address] Referral ID Status Reason Start Date Expiration Date Visits Re quested Visits Authorized [id number] Closed 11/04/2021 11/03/2022 1 1 Reason Comments Follow Up Pain (Shoulder Pain) Left Specialty Diagnoses / Procedures Referred By Contac t Referred To Contact Pain Management / PAIN MANAGEMENT Diagnoses Examination wants to discuss options since Insurance denied RFA Procedures OFFICE/OUTPATIENT ESTABLISHED MOD MDM 30-39 MIN EST PATIENT Self Adelina Mason, LICENSE CLERK.TRANSFER PROFESSOR [address] [place] [address] Referral ID Status Reason Start Date Expiration Date V isits Requested Visits Authorized [id number] Closed Patient Cleared - Admin/Chairm an/Director advise to proceed 11/08/2022 02/06/2023 1 1 Reason Onset Date Comments Refill Request 11/15/2022 Reason Onset Date Comments Refill Request 11/23/2022 Reason Comments ER F/U Reason Comments Patient Question [employer] appointment on 12/05/22 Reason Comments Acute Visit Reason Comments Hank requesting records Reason Comments Follow Up Concussion, [...] referral botox 200 units every 90 days [id number] Karen Bansal, LICENSE CLERK.TRANSFER PROFESSOR [address] [place] [address] Neur Adult Main [address] [place] [address] Referral ID Status Reason Start Date Expiration Date V isits Requested Visits Authorized [id number] Authorized 08/15/2022 01/30/2023 2 2 Reason Comments [...] Referred By Contac t Referred To Contact TOBACCO STRIPPER Diagnoses annual Procedures EST WHI ANNUAL PATIENT Self Galina Camacho MD [address] [place] [address] Referral ID Status Reason Start Date Expiration Date V isits Requested Visits Authorized [id number] Closed Patient Cleared - INN Insurance Found [...] Patient due on 04/22/23 Fatuma Beckford PA-C [address] [place] [address] [place] [address] Neur Adult Main [address] [place] [address] Referral ID Status Reason Start Date Expiration Date V isits Requested Visits Authorized [id number] Authorized 04/02/2023 04/02/2024 4 4 Reason Comments Pt requesting Boot Reason Comments Follow Up Reason Comments Follow Up MRI results. Reason Onset Date Comments Refill Request 06/08/2023 Reason Comments New Bone spurs Pain Bone spurs Reason Onset Date Comments Refill Request 07/05/2023 Reason Comments Forms [facility] preventative car e Reason Onset Date Comments Refill Request 09/09/2023 Reason Onset Date Comments Refill Request 09/23/2023 Reason Onset Date Comments Refill Request 10/14/2023 Reason Comments Diabetes Reason Onset Date Comments Refill Request 01/01/2024 Reason Comments Insurance Authorization Reason Onset Date Comments Refill Request 01/22/2024 Reason Onset Date Comments Refill Request 02/28/2024 Reason Comments Botox Injection Specialty Diagnoses / Procedures [facility] To Contact ADULT NEUROLOGY Diagnoses Intractable chronic migraine without aura Procedures BOTULINUM TOXIN A PER 1 UNIT CHEMODERVATE FACIAL/TRIGEM/CERV MUSC MIGRAINE Renewal botox 200 units every 90 days. Patient due on 04/22/23 Fatuma Beckford PA-C [address] [place] [address] Neur Adult Main [address] [place], [place] [id number] Referral ID Status Reason Start Date Expiration Date Visits Re quested Visits Authorized [id number] Closed 04/02/2023 04/02/2024 4 4 Reason Comments [...] Referred By Petra meek Referred To Contact ADULT NEUROLOGY Diagnoses Chronic migraine without aura, intractable, without status migrainosus Procedures BOTULINUM TOXIN A PER 1 UNIT CHEMODERVATE FACIAL/TRIGEM/CERV MUSC MIGRAINE Fatuma Beckford PA-C [address] [place] [address] [place] [address] [place] [address] Referral ID Status Reason Start Date Expiration Date V isits Requested Visits Authorized [id number] Authorized 07/01/2024 11/03/2024 99 99 Reason Onset [...] Comments Botox Approved Reason Comments Rx Refills Reason Comments SUGAR Yearly Exam Care Teams (unrecognized sec tion and content) Payroll Processor Relationship Specialty Start Date End Date Ivette Grimes MD [address] [place], [place] [phone] PCP - General Family Practice 11/21/13 Jagdish Carballo, [facility] [address] [place], [place] [phone] Pharmacist Pharmacy 05/19/20 Payroll Processor Relationship Specialty Start Date End Date Ivette Grimes MD [address] [place] [address] PCP - General Family Practice 11/21/13 [facility] [address] [place] [address] Pharmacist Pharmacy 05/19/20 Payroll Processor Relationship Specialty Start Date End Date Ivette Grimes MD [address] [place] [address] PCP - General Family Practice 11/21/13 [facility] [address] [place] [address] Pharmacist Pharmacy 05/19/20 Payroll Processor Relationship Specialty Start Date End Date Ivette Grimes MD [address] [place] [address] PCP - General Family Practice 11/21/13 [facility] [address] [place] [address] Pharmacist Pharmacy 05/19/20 Payroll Processor Relationship Specialty Start Date End Date Ivette Grimes MD [address] [place] [address] PCP - General Family Practice 11/21/13 [facility] [address] [place] [address] Pharmacist Pharmacy 05/19/20 Payroll Processor Relationship Specialty Start Date End Date Ivette Grimes MD [address] [place] [address] PCP - General Family Practice 11/21/13 [facility] [address] [place] [address] Pharmacist Pharmacy 05/19/20 Payroll Processor Relationship Specialty Start Date End Date Ivette Grimes MD [address] [place] [address] PCP - General Family Practice 11/21/13 Jagdish Carballo, [facility] [address] [facility] [place] [address] Pharmacist Pharmacy 05/19/20 Payroll Processor Relationship Specialty Start Date End Date Ivette Grimes MD [address] [place] [address] PCP - General Family Practice 11/21/13 Jagdish Carballo, [facility] [address] [facility] [place] [address] Pharmacist Pharmacy 05/19/20 Payroll Processor Relationship Specialty Start Date End Date Ivette Grimes MD [address] [place] [address] PCP - General Family Practice 11/21/13 Jagdish Carballo, [facility] [address] [facility] [place] [place] [address] Pharmacist Pharmacy 05/19/20 Payroll Processor Relationship Specialty Start Date End Date Ivette Grimes MD [address] [place] [address] PCP - General Family Practice 11/21/13 Jagdish Carballo, [facility] [address] [place] [address] Pharmacist Pharmacy 05/19/20 Payroll Processor Relationship Specialty Start Date End Date Ivette Grimes MD [address] [place] [address] PCP - General Family Practice 11/21/13 Jagdish Carballo, [facility] [address] [place] [address] Pharmacist Pharmacy 05/19/20 Payroll Processor Relationship Specialty Start Date End Date Ivette Grimes MD [address] [place] [address] PCP - General Family Practice 11/21/13 [facility] [address] [place] [address] Pharmacist Pharmacy 05/19/20 Payroll Processor Relationship Specialty Start Date End Date Ivette Grimes MD [address] [place] [address] PCP - General Family Practice 11/21/13 [facility] [address] [place] [address] Pharmacist Pharmacy 05/19/20 Payroll Processor Relationship Specialty Start Date End Date Ivette Grimes MD [address] [place] [address] PCP - General Family Practice 11/21/13 [facility] [address] [place] [address] Pharmacist Pharmacy 05/19/20 Payroll Processor Relationship Specialty Start Date End Date Ivette Grimes MD [address] [place] [address] PCP - General Family Practice 11/21/13 [facility] [address] [place] [address] Pharmacist Pharmacy 05/19/20 Payroll Processor Relationship Specialty Start Date End Date Ivette Grimes MD [address] [place] [address] PCP - General Family Practice 11/21/13 [facility] [address] [place] [address] Pharmacist Pharmacy 05/19/20 Payroll Processor Relationship Specialty Start Date End Date Ivette Grimes MD [address] [place] [address] PCP - General Family Practice 11/21/13 [facility] [address] [place] [address] Pharmacist Pharmacy 05/19/20 Payroll Processor Relationship Specialty Start Date End Date Ivette Grimes MD [address] [place] [address] PCP - General Family Practice 11/21/13 [facility] [address] [place] [address] Pharmacist Pharmacy 05/19/20 Payroll Processor Relationship Specialty Start Date End Date Ivette Grimes MD [address] [place] [address] PCP - General Family Practice 11/21/13 [facility] [address] [place] [address] Pharmacist Pharmacy 05/19/20 Payroll Processor Relationship Specialty Start Date End Date Ivette Grimes MD [address] [place] [address] PCP - General Family Medicine 11/21/13 [facility] [address] [place] [address] Pharmacist Pharmacy 05/19/20 Payroll Processor Relationship Specialty Start Date End Date Ivette Grimes MD [address] [place] [address] PCP - General Family Medicine 11/21/13 [facility] [address] [place] [address] Pharmacist Pharmacy 05/19/20 Payroll Processor Relationship Specialty Start Date End Date Ivette Grimes MD [address] [place] [address] PCP - General Family Medicine 11/21/13 [facility] [address] [place] [address] Pharmacist Pharmacy 05/19/20 Payroll Processor Relationship Specialty Start Date End Date Ivette Grimes MD [address] [place] [address] PCP - General Family Medicine 11/21/13 [facility] [address] [place] [address] Pharmacist Pharmacy 05/19/20 Payroll Processor Relationship Specialty Start Date End Date Ivette Grimes MD [address] [place] [address] PCP - General Family Medicine 11/21/13 [facility] [address] [place] [address] Pharmacist Pharmacy 05/19/20 Payroll Processor Relationship Specialty Start Date End Date Ivette Grimes MD [address] [place] [address] PCP - General Family Medicine 11/21/13 [facility] [address] [place] [address] Pharmacist Pharmacy 05/19/20 Payroll Processor Relationship Specialty Start Date End Date Ivette Grimes MD [address] [place] [address] PCP - General Family Medicine 11/21/13 Jagdish Carballo, [facility] [address] [facility] [place] [address] Pharmacist Pharmacy 05/19/20 Payroll Processor Relationship Specialty Start Date End Date Ivette Grimes MD [address] [place] [address] PCP - General Family Medicine 11/21/13 Jagdish Carballo, [facility] [address] [place] [address] Pharmacist Pharmacy 05/19/20 Payroll Processor Relationship Specialty Start Date End Date Ivette Grimes MD [address] [place] [address] PCP - General Family Medicine 11/21/13 [facility] [address] [place] [address] Pharmacist Pharmacy 05/19/20 Payroll Processor Relationship Specialty Start Date End Date Ivette Grimes MD [address] [place] [address] PCP - General Family Medicine 11/21/13 Martinhenry Jagdish, [facility] [address] [place] [address] Pharmacist Pharmacy 05/19/20 Payroll Processor Relationship Specialty Start Date End Date Ivette Grimes MD [address] [place] [address] PCP - General Family Medicine 11/21/13 Jagdish Carballo, [facility] [address] [place] [address] Pharmacist Pharmacy 05/19/20 Payroll Processor Relationship Specialty Start Date End Date Ivette Grimes MD [address] [place] [address] PCP - General Family Medicine 11/21/13 [facility] [address] [place] [address] Pharmacist Pharmacy 05/19/20 Payroll Processor Relationship Specialty Start Date End Date Ivette Grimes MD [address] [place] [address] PCP - General Family Medicine 11/21/13 [facility] [address] [place] [address] Pharmacist Pharmacy 05/19/20 Payroll Processor Relationship Specialty Start Date End Date Ivette Grimes MD [address] [place] [address] PCP - General Family Medicine 11/21/13 [facility] [address] [place] [address] Pharmacist Pharmacy 05/19/20 Payroll Processor Relationship Specialty Start Date End Date Ivette Grimes MD [address] [place] [address] PCP - General Family Medicine 11/21/13 [facility] [address] [place] [address] Pharmacist Pharmacy 05/19/20 Payroll Processor Relationship Specialty Start Date End Date Ivette Grimes MD [address] [place] [address] PCP - General Family Medicine 11/21/13 [facility] [address] [place] [address] Pharmacist Pharmacy 05/19/20 Payroll Processor Relationship Specialty Start Date End Date Ivette Grimes MD [address] [place] [address] PCP - General Family Medicine 11/21/13 [facility] [address] [place] [address] Pharmacist Pharmacy 05/19/20 Jemal Orozco MD [address] [place] [address] Cardiology 10/31/22 Payroll Processor Relationship Specialty Start Date End Date Ivette Grimes MD [address] [place] [address] PCP - General Family Medicine 11/21/13 [facility] [address] [place] [address] Pharmacist Pharmacy 05/19/20 Jemal Orozco MD [address] [place] [address] Cardiology 10/31/22 Payroll Processor Relationship Specialty Start Date End Date Ivette Grimes MD [address] [place] [address] PCP - General Family Medicine 11/21/13 [facility] [address] [place] [address] Pharmacist Pharmacy 05/19/20 Jemal Orozco MD [address] [place] [address] Cardiology 10/31/22 Payroll Processor Relationship Specialty Start Date End Date Ivette Grimes MD [address] [place] [address] PCP - General Family Medicine 11/21/13 [facility] [address] [place], [place] [address] Pharmacist Pharmacy 05/19/20 Jemal Orozco MD [address] [place] [address] Cardiology 10/31/22 Team Status: Active Member Role Status Dates Dr. Ivette Grimes MD Family Provider Active Dr. Ivette Grimes MD Primary Care Provider Active Team Status: Inactive Member Role Status Dates Dr. Ivette Grimes MD Primary Care Provider, Referring Provider Active Dr. Primo Ceron MD Attending [...] Dr. Ivette Mejia MD Attending Provider, Referring P rovider Active Team Status: Active Member Role Status [...] Dr. Tod Callejas MD Emergency Provider Active Payroll Processor Relationship Specialty Start Date End Date Ivette Grimes MD [address] [place] [address] PCP - General Family Medicine 11/21/13 [facility] [address] [place] [address] Pharmacist Pharmacy 05/19/20 Jemal Orozco MD [address] [place] [address] Cardiology 10/31/22 Payroll Processor Relationship Specialty Start Date End Date Ivette Grimes MD [address] [place] [address] PCP - General Family Medicine 11/21/13 [facility] [address] [place] [address] Pharmacist Pharmacy 05/19/20 Jemal Orozco MD [address] [place] [address] Cardiology 10/31/22 Payroll Processor Relationship Specialty Start Date End Date Ivette Grimes MD [address] [place] [address] PCP - General Family Medicine 11/21/13 [facility] [address] [place] [address] Pharmacist Pharmacy 05/19/20 Jemal Orozco MD [address] [place] [address] Cardiology 10/31/22 Payroll Processor Relationship Specialty Start Date End Date Ivette Grimes MD [address] [place] [address] PCP - General Family Medicine 11/21/13 [facility] [address] [place] [address] Pharmacist Pharmacy 05/19/20 Jemal Orozco MD [address] [place], [place] [phone] Cardiology 10/31/22 Payroll Processor Relationship Specialty Start Date End Date Ivette Grimes MD [address] [place] [address] PCP - General Family Medicine 11/21/13 [facility] [address] [place] [address] Pharmacist Pharmacy 05/19/20 Jemal Orozco MD [address] [place] [address] Cardiology 10/31/22 Payroll Processor Relationship Specialty Start Date End Date Ivette Grimes MD [address] [place] [address] PCP - General Family Medicine 11/21/13 [facility] [address] [place] [address] Pharmacist Pharmacy 05/19/20 Jemal Orozco MD [address] [place] [address] Cardiology 10/31/22 Payroll Processor Relationship Specialty Start Date End Date Ivette Grimes MD [address] [place] [address] PCP - General Family Medicine 11/21/13 [facility] [address] [place] [address] Pharmacist Pharmacy 05/19/20 Jemal Orozco MD [address] [place] [address] Cardiology 10/31/22 Payroll Processor Relationship Specialty Start Date End Date Ivette Grimes MD [address] [place] [address] PCP - General Family Medicine 11/21/13 [facility] [address] [place] [address] Pharmacist Pharmacy 05/19/20 Jemal Orozco MD [address] [place] [address] Cardiology 10/31/22 Payroll Processor Relationship Specialty Start Date End Date Ivette Grimes MD [address] [place] [address] PCP - General Family Medicine 11/21/13 [facility] [address] [place] [address] Pharmacist Pharmacy 05/19/20 Jemal Orozco MD [address] [place] [address] Cardiology 10/31/22 Payroll Processor Relationship Specialty Start Date End Date Ivette Grimes MD [address] [place] [address] PCP - General Family Medicine 11/21/13 [facility] [address] [place] [address] Pharmacist Pharmacy 05/19/20 Jemal Orozco MD [address] [place] [address] Cardiology 10/31/22 Payroll Processor Relationship Specialty Start Date End Date vIette Grimes MD [address] [place] [address] PCP - General Family Medicine 11/21/13 Jagdish Carballo, RPh [address] [place] [address] Pharmacist Pharmacy 05/19/20 Jemal Orozco MD [address] [place] [address] Cardiology 10/31/22 Team Status: Inactive Member Role Status Dates Dr. Ivette Grimes MD Primary Care Provider, Referring Provider Active Dr. Vin Montes MD Attending Provider Active Team Status: Inactive Member Role Status Dates Dr. Ivette Grimes MD Primary Care Provider, Referring Provider Active Jesenia Mercado LEAD GENERATION SPECIALIST, LEAD GENERATION SPECIALIST-C Attending Provider Active Team Status: Inactive Member [...] Pearl MD Attending Provider, Emergency Provider Active Payroll Processor Relationship Specialty Start Date End Date Ivette Grimes MD [address] [place] [address] PCP - General Family Medicine 11/21/13 [facility] [address] [place] [address] Pharmacist Pharmacy 05/19/20 Jemal Orozco MD [address] [place] [address] Cardiology 10/31/22 Payroll Processor Relationship Specialty Start Date End Date Ivette Grimes MD [address] [place] [address] PCP - General Family Medicine 11/21/13 [facility] [address] [place] [address] Pharmacist Pharmacy 05/19/20 Jemal Orozco MD [address] [place] [address] Cardiology 10/31/22 Payroll Processor Relationship Specialty Start Date End Date Ivette Grimes MD [address] [place] [address] PCP - General Family Medicine 11/21/13 [facility] [address] [place] [address] Pharmacist Pharmacy 05/19/20 Jemal Orozco MD [address] [place] [address] Cardiology 10/31/22 Payroll Processor Relationship Specialty Start Date End Date Ivette Grimes MD [address] [place] [address] PCP - General Family Medicine 11/21/13 [facility] [address] [place] [address] Pharmacist Pharmacy 05/19/20 Jemal Orozco MD [address] [place], [place] [phone] Cardiology 10/31/22 Team Status: Active Member Role Status Dates Dr. Ivette Grimes MD Primary Care Provider Active Adelina Mason LEAD GENERATION SPECIALIST, LEAD GENERATION SPECIALIST-C Attending Provider, Willian alvarez Provider Active Payroll Processor Relationship Specialty Start Date End Date Ivette Grimes MD [address] [place] [address] PCP - General Family Medicine 11/21/13 [facility] [address] [place] [address] Pharmacist Pharmacy 05/19/20 Jemal Orozco MD [address] [place] [address] Cardiology 10/31/22 Payroll Processor Relationship Specialty Start Date End Date Ivette Grimes MD [address] [place] [address] PCP - General Family Medicine 11/21/13 [facility] [address] [place] [address] Pharmacist Pharmacy 05/19/20 Jemal Orozco MD [address] [place] [address] Cardiology 10/31/22 Payroll Processor Relationship Specialty Start Date End Date Ivette Grimes MD [address] [place] [address] PCP - General Family Medicine 11/21/13 [facility] [address] [place] [address] Pharmacist Pharmacy 05/19/20 Jemal Orozco MD [address] [place] [address] Cardiology 10/31/22 Payroll Processor Relationship Specialty Start Date End Date Ivette Grimes MD [address] [place] [address] PCP - General Family Medicine 11/21/13 [facility] [address] [place] [address] Pharmacist Pharmacy 05/19/20 Jemal Orozco MD [address] [place] [address] Cardiology 10/31/22 Payroll Processor Relationship Specialty Start Date End Date Ivette Grimes MD [address] [place] [address] PCP - General Family Medicine 11/21/13 [facility] [address] [place] [address] Pharmacist Pharmacy 05/19/20 Jemal Orozco MD [address], [place] [address] Cardiology 10/31/22 Payroll Processor Relationship Specialty Start Date End Date Ivette Grimes MD [address] [place] [address] PCP - General Family Medicine 11/21/13 [facility] [address] [place] [address] Pharmacist Pharmacy 05/19/20 Jemal Orozco MD [address] [place], [place] [address] Cardiology 10/31/22 Team Status: Inactive Member Role Status Dates Dr. Ivette Grimes MD Primary Care Provider Active TETO RIDER Attending Provider, Referring Pro vider Active Team Status: Inactive Member Role Status Dates Dr. Ivette Grimes MD Primary Care Provider Active Dr. Sam Pearl MD Emergency Provider Active Payroll Processor Relationship Specialty Start Date End Date Ivette Grimes MD [address] [place] [address] PCP - General Family Medicine 11/21/13 [facility] [address] [place] [address] Pharmacist Pharmacy 05/19/20 Jemal Orozco MD [address] [place] [address] Cardiology 10/31/22 Payroll Processor Relationship Specialty Start Date End Date Ivette Grimes MD [address] [place] [address] PCP - General Family Medicine 11/21/13 [facility] [address] [place] [address] Pharmacist Pharmacy 05/19/20 Jemal Orozco MD [address] [place], [place] [address] Cardiology 10/31/22 Payroll Processor Relationship Specialty Start Date End Date Ivette Grimes MD [address] [place] [address] PCP - General Family Medicine 11/21/13 [facility] [address] [place] [address] Pharmacist Pharmacy 05/19/20 Jemal Orozco MD [address] [place] [address] Cardiology 10/31/22 Payroll Processor Relationship Specialty Start Date End Date Ivette Grimes MD [address] [place] [address] PCP - General Family Medicine 11/21/13 Jagdish Carballo, [facility] [address] [place] [address] Pharmacist Pharmacy 05/19/20 Jemal Orozco MD [address] [place] [address] Cardiology 10/31/22 Payroll Processor Relationship Specialty Start Date End Date Ivette Grimes MD [address] [place] [address] PCP - General Family Medicine 11/21/13 Jagdish Carballo, [facility] [address] [place] [address] Pharmacist Pharmacy 05/19/20 Jemal Orozco MD [address] [place], [place] [phone] Cardiology 10/31/22 Payroll Processor Relationship Specialty Start Date End Date Ivette Grimes MD [address] [place] [address] PCP - General Family Medicine 11/21/13 [facility] [address] [place] [address] Pharmacist Pharmacy 05/19/20 Jemal Orozco MD [address] [place] [address] Cardiology 10/31/22 Payroll Processor Relationship Specialty Start Date End Date Ivette Grimes MD [address] [place] [address] PCP - General Family Medicine 11/21/13 [facility] [address] [place] [address] Pharmacist Pharmacy 05/19/20 Jemal Orozco MD [address] [place], [place] [address] Cardiology 10/31/22 Team Status: Active Member Role Status Dates Dr. Ivette Grimes MD Family Provider Active Team Status: Inactive Member Role Status Dates Dr. Bibiana Rehman DC Attending Provider Active Team Status: Inactive Member Role Status Dates Dr. Ivette Grimes MD Primary Care Provider Active Adelina Mason LEAD GENERATION SPECIALIST, LEAD GENERATION SPECIALIST-C Attending Provider, Referrin g Provider Active Team [...] MD Admit Provider, Attending Prov ider Active Payroll Processor Relationship Specialty Start Date End Date Ivette Grimes MD [address] [place] [address] PCP - General Family Medicine 11/21/13 [facility]dead[facility] [address] [place] [address] Pharmacist Pharmacy 05/19/20 Jemal Orozco MD [address] [place] [address] Cardiology 10/31/22 Payroll Processor Relationship Specialty Start Date End Date Ivette Grimes MD [address] [place] [address] PCP - General Family Medicine 11/21/13 [facility] [address] [place] [address] Pharmacist Pharmacy 05/19/20 Jemal Orozco MD [address] [place], [place] 52317[address] Cardiology 10/31/22 Payroll Processor Relationship Specialty Start Date End Date Ivette Grimes MD [address] [place] [address] PCP - General Family Medicine 11/21/13 [facility] [address] [place] [address] Pharmacist Pharmacy 05/19/20 Jemal Orozco MD [address] [place], [place] [address] Cardiology 10/31/22 Payroll Processor Relationship Specialty Start Date End Date Ivette Grimes MD [address] [place] [address] PCP - General Family Medicine 11/21/13 [facility] [address] [place] [address] Pharmacist Pharmacy 05/19/20 Jemal Orozco MD [address] [place] [address] Cardiology 10/31/22 Team Status: Inactive [...] MD Admit Provider, Attending Prov ider Active Payroll Processor Relationship Specialty Start Date End Date Ivette Grimes MD [address] [place] [address] PCP - General Family Medicine 11/21/13 [facility] Sol[facility], [facility] [address] [place] [address] Pharmacist Pharmacy 05/19/20 Jemal Orozco MD [address] [place] [address] Cardiology 10/31/22 Payroll Processor Relationship Specialty Start Date End Date Ivette Grimes MD [address] [facility] [place] [address] PCP - General Family Medicine 11/21/13 [facility] [address] [place] [address] Pharmacist Pharmacy 05/19/20 Jemal Orozco MD [address] [place] [address] Cardiology 10/31/22 Payroll Processor Relationship Specialty Start Date End Date Ivette Grimes MD [address] [place] [address] PCP - General Family Medicine 11/21/13 Jagdish Carballo, [facility] [address] [place] [address] Pharmacist Pharmacy 05/19/20 Jemal Orozco MD [address], [place] 248[address] Cardiology 10/31/22 Team Status: Inactive Member Role Status Dates Dr. Ivette Grimes MD Primary Care Provider Active Dr. Luan Zepeda DO Emergency Provider Active Payroll Processor Relationship Specialty Start Date End Date Ivette Grimes MD [address] [place] [address] PCP - General Family Medicine 11/21/13 [facility] [address] [place] [address] Pharmacist Pharmacy 05/19/20 Jemal Orozco MD [address] [place] [address] Cardiology 10/31/22 Payroll Processor Relationship Specialty Start Date End Date Ivette Grimes MD [address] [place] [address] PCP - General Family Medicine 11/21/13 [facility] [address] [place] [address] Pharmacist Pharmacy 05/19/20 Jemal Orozco MD [address] [place], [place] 3309[address] Cardiology 10/31/22 Payroll Processor Relationship Specialty Start Date End Date Ivette Grimes MD [address] [place] [address] PCP - General Family Medicine 11/21/13 [facility] [address] [place] [address] Pharmacist Pharmacy 05/19/20 Jemal Orozco MD [address] [place] [address] Cardiology 10/31/22 Team Status: Inactive Member Role Status Dates Dr. Ivette Grimes MD Primary Care Provider Active Dr. Luan Zepeda DO Attending Provider, Roxane go Active Payroll Processor Relationship Specialty Start Date End Date Ivette Grimes MD [address] [place], [place] 660081 PCP - General Family Medicine 11/21/13 Jemal Orozco MD [address] [place] [address] Cardiology 10/31/22 Payroll Processor Relationship Specialty Start Date End Date Ivette Grimes MD [address] [place], [place] 77034691 PCP - General Family Medicine 11/21/13 Jemal Orozco MD [address] [place] [address] Cardiology 10/31/22 Payroll Processor Relationship Specialty Start Date End Date Ivette Grimes MD [address] [place], [place] 490131 PCP - General Family Medicine 11/21/13 Jemal Orozco MD [address] [place], [place] 8234[address] Cardiology 10/31/22 Payroll Processor Relationship Specialty Start Date End Date Ivette Grimes MD [address] [place] [address] PCP - General Family Medicine 11/21/13 Jemal Orozco MD [address] [place] [address] Cardiology 10/31/22 Payroll Processor Relationship Specialty Start Date End Date Ivette Grimes MD [address] [place], [place] 333141 PCP - General Family Medicine 11/21/13 Jemal Orozco MD [address] [place], [place] 4811[address] Cardiology 10/31/22 Payroll Processor Relationship Specialty Start Date End Date Ivette Grimes MD [address] [place], [place] 158681 PCP - General Family Medicine 11/21/13 Jemal Orozco MD [address] [place] [address] Cardiology 10/31/22 Payroll Processor Relationship Specialty Start Date End Date Ivette Grimes MD [address] [place], [place] 595381 PCP - General Family Medicine 11/21/13 Jemal Orozco MD [address] [place] [address] Cardiology 10/31/22 Payroll Processor Relationship Specialty Start Date End Date Ivette Grimes MD [address] [place], [place] 102561 PCP - General Family Medicine 11/21/13 Jemal Orozco MD [address], [place] 0997495 Cardiology 10/31/22 Payroll Processor Relationship Specialty Start Date End Date Ivette Grimes MD [address] [place], [place] 524131 PCP - General Family Medicine 11/21/13 Jemal Orozco MD [address] [place], [place] 11268[address] Cardiology 10/31/22 Payroll Processor Relationship Specialty Start Date End Date Ivette Grimes MD [address] [place], [place] 334611 PCP - General Family Medicine 11/21/13 Jemal Orozco MD [address] [place], [place] 74957[address] Cardiology 10/31/22 Payroll Processor Relationship Specialty Start Date End Date Ivette Grimes MD [address] [place], [place] 951541 PCP - General Family Medicine 11/21/13 Jemal Orozco MD [address] [place], [place] 49450[address] Cardiology 10/31/22 Payroll Processor Relationship Specialty Start Date End Date Ivette Grimes MD [address] [place] [address] PCP - General Family Medicine 11/21/13 Jemal Orozco MD [address] [place] [address] Cardiology 10/31/22 Payroll Processor Relationship Specialty Start Date End Date Ivette Grimes MD [address] [place], [place] 451091 PCP - General Family Medicine 11/21/13 Jemal Orozco MD [address] [place], [place] 65[address] Cardiology 10/31/22 Payroll Processor Relationship Specialty Start Date End Date Ivette Grimes MD [address] [place], [place] 262411 PCP - General Family Medicine 11/21/13 Jemal Orozco MD [address], [place] 0963995 Cardiology 10/31/22 Payroll Processor Relationship Specialty Start Date End Date Ivette Grimes MD [address] [place], [place] 861821 PCP - General Family Medicine 11/21/13 Jagdish Carballo, [facility] [address] [place], [place] 883491 Pharmacist Pharmacy 05/19/20 12/25/23 Jemal Orozco MD [address] [place], [place] 0399695 Cardiology 10/31/22 Payroll Processor Relationship Specialty Start Date End Date Ivette Grimes MD [address] [place], [place] 188071 PCP - General Family Medicine 11/21/13 Jemal Orozco MD [address] [place], [place] 29218[address] Cardiology 10/31/22 Payroll Processor Relationship Specialty Start Date End Date Ivette Grimes MD [address] [place], [place] 860301 PCP - General Family Medicine 11/21/13 Jemal Orozco MD [address] [place], [place] 81924[address] Cardiology 10/31/22 Payroll Processor Relationship Specialty Start Date End Date Ivette Grimes MD [address] [place], [place] 272321 PCP - General Family Medicine 11/21/13 Jemal Orozco MD [address] [place] [address] Cardiology 10/31/22 Payroll Processor Relationship Specialty Start Date End Date Ivette Grimes MD [address] [place], [place] 020491 PCP - General Family Medicine 11/21/13 Jemal Orozco MD [address] [place] [address] Cardiology 10/31/22 Payroll Processor Relationship Specialty Start Date End Date Ivette Grimes MD [address] [place], [place] 451541 PCP - General Family Medicine 11/21/13 Jemal Orozco MD [address] [place] [address] Cardiology 10/31/22 Cindy Edouard APRN.TRANSFER PROFESSOR [address] [place], [place] [id number] Spa Attendant Family Medicine 10/12/24 Lubna De La Garza APRN.TRANSFER PROFESSOR [address] [place] [address] [facility] 10/12/24 Payroll Processor Relationship Specialty Start Date End Date Ivette Grimes MD [address] [place] [address] PCP - General Family Medicine 11/21/13 Jemal Orozco MD [address] [place] [address] Cardiology 10/31/22 Cindy Edouard APRN.TRANSFER PROFESSOR [address] [facility] [place] [address] [facility] 10/12/24 Lubna De La Garza LICENSE CLERK.TRANSFER PROFESSOR [address] [place] [address] [facility] 10/12/24 Payroll Processor Relationship Specialty Start Date End Date Ivette Grimes MD [address] [place] [address] PCP - General Family Medicine 11/21/13 Jemal Orozco MD [address] [place] [address] Cardiology 10/31/22 Cindy Edouard APRN.TRANSFER PROFESSOR [address] [facility] [place] [address] [facility] 10/12/24 Lubna De La Garza LICENSE CLERK.TRANSFER PROFESSOR [address] [place] [address] [facility] Att[facility] Family [facility] 10/12/24 Payroll Processor Relationship Specialty Start Date End Date Ivette Grimes MD [address] [place] [address] PCP - General Family Medicine 11/21/13 Jemal Orozco MD [address] [place] [address] Cardiology 10/31/22 Cindy Edouard LICENSE CLERK.TRANSFER PROFESSOR [address] [place] [address] Spa Attendant Family Medicine 10/12/24 Lubna De La Garza LICENSE CLERK.TRANSFER PROFESSOR [address] [place] [address] [facility] 10/12/24 Payroll Processor Relationship Specialty Start Date End Date Ivette Grimes MD [address] [place] [address] PCP - General Family Medicine 11/21/13 Jemal Oroczo MD [address] [place], [place] 3964095 Cardiology 10/31/22 Cindy Edouard LICENSE CLERK.TRANSFER PROFESSOR [address] [place] [address] Spa Attendant Family Medicine 10/12/24 Lubna De La Garza LICENSE CLERK.TRANSFER PROFESSOR [address] [place] [address] [facility] 10/12/24 Payroll Processor Relationship Specialty Start Date End Date Ivette Grimes MD [address] [place] [address] PCP - General Family Medicine 11/21/13 Jemal Orozco MD [address] [place], [place] 6738[address] Cardiology 10/31/22 Cindy Edouard, LICENSE CLERK.TRANSFER PROFESSOR [address] [place] [address] [facility] 10/12/24 Lubna De La Garza LICENSE CLERK.TRANSFER PROFESSOR [address] [place] [address] [facility] 10/12/24 Payroll Processor Relationship Specialty Start Date End Date Ivette Grimes MD [address] [place] [address] PCP - General Family Medicine 11/21/13 Jemal Orozco MD [address] [place] [address] Cardiology 10/31/22 Cindy Edouard, LICENSE CLERK.TRANSFER PROFESSOR [address] [facility] [place] [address] Spa Attendant Family Medicine 10/12/24 Lubna De La Garza LICENSE CLERK.TRANSFER PROFESSOR [address] [place] [address] Spa Att[facility] Family Medicine 10/12/24 Payroll Processor Relationship Specialty Start Date End Date Ivette Grimes MD [address] [place] [address] PCP - General Family Medicine 11/21/13 Jemal Orozco MD [address] [place] [address] Cardiology 10/31/22 Cindy Edouard, LICENSE CLERK.TRANSFER PROFESSOR [address] [place] [address] [facility] Att[facility] Family Medicine 10/12/24 Lubna De La Garza LICENSE CLERK.TRANSFER PROFESSOR [address] [place] [address] [facility] 10/12/24 Payroll Processor Relationship Specialty Start Date End Date Ivette Grimes MD [address] [place] [address] PCP - General Family Medicine 11/21/13 Jemal Orozco MD [address] [place] [address] Cardiology 10/31/22 Cindy Edouard, LICENSE CLERK.TRANSFER PROFESSOR [address] [place] [address] Spa Attendant Family Medicine 10/12/24 Lubna De La Garza LICENSE CLERK.TRANSFER PROFESSOR [address] [place] [address] Spa Attendant Family Medicine 10/12/24 Payroll Processor Relationship Specialty Start Date End Date Ivette Grimes MD [address] [place] [address] PCP - General Family Medicine 11/21/13 Jemal Orozco MD [address] [place], [place] [address] Cardiology 10/31/22 Cindy Edouard APRN.TRANSFER PROFESSOR [address] [facility] [place] [address] Spa Attendant Family Medicine 10/12/24 Lubna De La Garza LICENSE CLERK.TRANSFER PROFESSOR [address] [place] [address] Spa Attendant Family Medicine 10/12/24 Payroll Processor Relationship Specialty Start Date End Date Ivette Grimes MD [address] [place] [address] PCP - General Family Medicine 11/21/13 Jemal Orozco MD [address] [place], [place] 739[address] Cardiology 10/31/22 Cindy Edouard LICENSE CLERK.TRANSFER PROFESSOR [address] [facility] [place] [address] Spa Attendant Family Medicine 10/12/24 Lubna De La Garza LICENSE CLERK.TRANSFER PROFESSOR [address] [place] [address] Spa Attendant Family Medicine 10/12/24 Payroll Processor Relationship Specialty Start Date End Date Ivette Grimes MD [address] [place] [address] PCP - General Family Medicine 11/21/13 Jemal Orozco MD [address] [place], [place] 8179195 Cardiology 10/31/22 Cindy Edouard, LICENSE CLERK.TRANSFER PROFESSOR [address] [facility] [place] [id number] [facility] 10/12/24 Lubna De La Garza LICENSE CLERK.TRANSFER PROFESSOR [address] [facility] [place] [id number] [facility] 10/12/24 Team Status: Active Member Role Status [...] January 28, 2025 End: January 28, 2025 Payroll Processor Relationship Specialty Start Date End Date Ivette Grimes MD [address] [place] [address] PCP - General Family Medicine 11/21/13 Jemal Orozco MD [address] [place] [address] Cardiology 10/31/22 Cindy Edouard, LICENSE CLERK.TRANSFER PROFESSOR [address] [place] [address] [facility] 10/12/24 Lubna De La Garza LICENSE CLERK.TRANSFER PROFESSOR [address] [place] [address] [facility] 10/12/24 Payroll Processor Relationship Specialty Start Date End Date Ivette Grimes MD [address] [place], [place] [address]261 PCP - General Family Medicine 11/21/13 Jemal Orozco MD [address] [address] Cardiology 10/31/22 Cindy Edouard, LICENSE CLERK.TRANSFER PROFESSOR [address] [place], [place] [id number] [facility] Family Medicine 10/12/24 Lubna De La Garza APRN.[facility] [address] [facility] [place] [place] [address] [facility] Team Status: Inactive Member Role Status [...] March 22, 2025 End: March 22, 2025 Payroll Processor Relationship Specialty Start Date End Date Ivette Grimes MD [address] [place], [place] [id number] PCP - General Family Medicine 11/21/13 Jemal Orozco MD [address] [place], [place] [id number] Cardiology 10/31/22 Cindy Edouard, LICENSE CLERK.TRANSFER PROFESSOR [address] [place] [address] Spa Attendant [facility] 10/12/24 Lubna De La Garza LICENSE CLERK.TRANSFER PROFESSOR [address] [place] [address] [facility]24 Team Status: Inactive Member Role Status Dates Dr. Ivette Grimes MD Primary Care Provider Active Start: April 05, 2025 End: April 05, 2025 Dr. Ivette Grimes MD Referring Provider Active Start: April 05, 2025 End: April 05, 2025 Dr. Bibiana Rehman DC Attending Provider Active S tart: April 05, 2025 End: April 05, 2025 Payroll Processor Relationship Specialty Start Date End Date Ivette Grimes MD [address] [place] [address] PCP - General Family Medicine 11/21/13 Jemal Orozco MD [address] [place], [place] [id number] Cardiology 10/31/22 Cindy Edouard, LICENSE CLERK.TRANSFER PROFESSOR [address] [place] [address] Spa Attendant [facility] 10/12/24 Lubna De La Garza APRN.CNP [address] [place] [address] [facility] 10/12/24 Team Status: Active Member Role Status Dates Dr. Ivette Grimes MD Primary Care Provider Active Start: April 17, 2025 Brett Quiroga MD Attending Provider Active St art: April 17, 2025 Brett Quiroga MD Referring Provider Active St art: April 17, 2025 Team Status: Active Member Role Status Dates Dr. Ivette Grimes MD Primary Care Provider Active Start: April 20, 2025 Dr. Ivette Grimes MD Attending Provider Active Start: April 20, 2025 Dr. Ivette Grimes MD Referring Provider Active Start: April 20, 2025 Team Status: Inactive Member Role Status Dates Dr. Ivette Grimes MD Primary Care Provider Active Start: April 21, 2025 End: April 21, 2025 Dr. Ivette Grimes MD Referring Provider Active Start: April 21, 2025 End: April 21, 2025 Dr. Bibiana Rehman DC Attending Provider Active S tart: April 21, 2025 End: April 21, 2025 Team Status: Inactive Member Role Status Dates Dr. Ivette Grimes MD Primary Care Provider Active Start: April 17, 2025 End: April 17, 2025 Brtet Quiroga MD Attending Provider Active St art: April 17, 2025 End: April 17, 2025 Brett Quiroga MD Referring Provider Active St art: April 17, 2025 End: April 17, 2025 Team Status: Active Member Role/Relationship Status Dates Dr. Ivette Grimes MD Primary Care Provider Active Team Status: Inactive Member Role/Relationship Status Dates Dr. Ivette Grimes MD Primary Care Provider Active Start: January 28, 2025 End: January 28, 2025 Dr. Ivette Grimes MD Attending Provider Active Start: January 28, 2025 End: January 28, 2025 Dr. Ivette Grimes MD Referring Provider Active Start: January 28, 2025 End: January 28, 2025 Team Status: Inactive Member Role/Relationship Status Dates Dr. Ivette Grimes MD Primary Care Provider Active Start: February 04, 2025 End: February 04, 2025 Dr. Ivette Grimes MD Referring Provider Active Start: February 04, 2025 End: February 04, 2025 Dr. Bibiana Rehman DC Attending Provider Active S tart: February 04, 2025 End: February 04, 2025 Team Status: Inactive Member Role/Relationship Status Dates Dr. Ivette Grimes MD Primary Care Provider Active Start: March 09, 2025 End: March 09, 2025 Dr. Ivette Grimes MD Referring Provider Active Start: March 09, 2025 End: March 09, 2025 Dr. Bibiana Rehman DC Attending Provider Active S tart: March 09, 2025 End: March 09, 2025 Team Status: Inactive Member Role/Relationship Status Dates Dr. Ivette Grimes MD Primary Care Provider Active Start: March 11, 2025 End: March 11, 2025 Brett Quiroga MD Attending Provider Active St art: March 11, 2025 End: March 11, 2025 Brett Quiroga MD Referring Provider Active St art: March 11, 2025 End: March 11, 2025 Team Status: Inactive Member Role/Relationship Status Dates Dr. Ivette Grimes MD Primary Care Provider Active Start: March 22, 2025 End: March 22, 2025 Dr. Ivette Grimes MD Referring Provider Active Start: March 22, 2025 End: March 22, 2025 Brett Quiroga MD Attending Provider Active St art: March 22, 2025 End: March 22, 2025 Team Status: Inactive Member Role/Relationship Status Dates Dr. Ivette Grimes MD Primary Care Provider Active Start: March 22, 2025 End: March 22, 2025 Dr. Ivette Grimes MD Referring Provider Active Start: March 22, 2025 End: March 22, 2025 Dr. Bibiana Rehman DC Attending Provider Active S tart: March 22, 2025 End: March 22, 2025 Team Status: Inactive Member Role/Relationship Status Dates Dr. Ivette Grimes MD Primary Care Provider Active Start: April 05, 2025 End: April 05, 2025 Dr. Ivette Grimes MD Referring Provider Active Start: April 05, 2025 End: April 05, 2025 Dr. Bibiana Rehman DC Attending Provider Active S tart: April 05, 2025 End: April 05, 2025 Team Status: Inactive Member Role/Relationship Status Dates Dr. Ivette Grimes MD Primary Care Provider Active Start: April 17, 2025 End: April 17, 2025 Brett Quiroga MD Attending Provider Active St art: April 17, 2025 End: April 17, 2025 Brett Quiroga MD Referring Provider Active St art: April 17, 2025 End: April 17, 2025 Team Status: Inactive Member Role/Relationship Status Dates Dr. Ivette Grimes MD Primary Care Provider Active Start: April 21, 2025 End: April 21, 2025 Dr. Ivette Grimes MD Referring Provider Active Start: April 21, 2025 End: April 21, 2025 Dr. Bibiana Rehman DC Attending Provider Active S tart: April 21, 2025 End: April 21, 2025 Team Status: Active Member Role/Relationship Status Dates Dr. Ivette Grimes MD Primary Care Provider Active Start: May 05, 2025 Dr. Ivette Grimes MD Attending Provider Active Start: May 05, 2025 Dr. Ivette Grimes MD Referring Provider Active Start: May 05, 2025 Team Status: Inactive Member Role/Relationship Status Dates Dr. Ivette Grimes MD Primary Care Provider Active Start: May 06, 2025 End: May 06, 2025 Dr. Ivette Grimes MD Referring Provider Active Start: May 06, 2025 End: May 06, 2025 Brett Quiroga MD Attending Provider Active St art: May 06, 2025 End: May 06, 2025 Team Status: Inactive Member Role/Relationship Status Dates Dr. Ivette Grimes MD Primary Care Provider Active Start: February 04, 2025 End: February 04, 2025 Dr. Ivette Grimes MD Referring Provider Active Start: February 04, 2025 End: February 04, 2025 Dr. Bibiana Rehman DC Attending Provider Active S tart: February 04, 2025 End: February 04, 2025 Team Status: Inactive Member Role/Relationship Status Dates Dr. Ivette Grimes MD Primary Care Provider Active Start: March 09, 2025 End: March 09, 2025 Dr. Ivette Grimes MD Referring Provider Active Start: March 09, 2025 End: March 09, 2025 Dr. Bibiana Rehman DC Attending Provider Active S tart: March 09, 2025 End: March 09, 2025 Team Status: Inactive Member Role/Relationship Status Dates Dr. Ivette Grimes MD Primary Care Provider Active Start: March 11, 2025 End: March 11, 2025 Brett Quiroga MD Attending Provider Active St art: March 11, 2025 End: March 11, 2025 Brett Quiroga MD Referring Provider Active St art: March 11, 2025 End: March 11, 2025 Team Status: Inactive Member Role/Relationship Status Dates Dr. Ivette Grimes MD Primary Care Provider Active Start: March 22, 2025 End: March 22, 2025 Dr. Ivette Grimes MD Referring Provider Active Start: March 22, 2025 End: March 22, 2025 Brett Quiroga MD Attending Provider Active St art: March 22, 2025 End: March 22, 2025 Team Status: Inactive Member Role/Relationship Status Dates Dr. Ivette Grimes MD Primary Care Provider Active Start: March 22, 2025 End: March 22, 2025 Dr. Ivette Grimes MD Referring Provider Active Start: March 22, 2025 End: March 22, 2025 Dr. Bibiana Rehman DC Attending Provider Active S tart: March 22, 2025 End: March 22, 2025 Team Status: Inactive Member Role/Relationship Status Dates Dr. Ivette Grimes MD Primary Care Provider Active Start: April 05, 2025 End: April 05, 2025 Dr. Ivette Grimes MD Referring Provider Active Start: April 05, 2025 End: April 05, 2025 Dr. Bibiana Rehman DC Attending Provider Active S tart: April 05, 2025 End: April 05, 2025 Team Status: Inactive Member Role/Relationship Status Dates Dr. Ivette Grimes MD Primary Care Provider Active Start: April 17, 2025 End: April 17, 2025 Brett Quiroga MD Attending Provider Active St art: April 17, 2025 End: April 17, 2025 Brett Quiroga MD Referring Provider Active St art: April 17, 2025 End: April 17, 2025 Team Status: Inactive Member Role/Relationship Status Dates Dr. Ivette Grimes MD Primary Care Provider Active Start: April 21, 2025 End: April 21, 2025 Dr. Ivette Grimes MD Referring Provider Active Start: April 21, 2025 End: April 21, 2025 Dr. Bibiana Rehman DC Attending Provider Active S tart: April 21, 2025 End: April 21, 2025 Team Status: Inactive Member Role/Relationship Status Dates Dr. Ivette Grimes MD Primary Care Provider Active Start: May 06, 2025 End: May 06, 2025 Dr. Ivette Grimes MD Referring Provider Active Start: May 06, 2025 End: May 06, 2025 Brett Quiroga MD Attending Provider Active St art: May 06, 2025 End: May 06, 2025 Team Status: Active Member Role/Relationship Status Dates Dr. Ivette Grimes MD Primary Care Provider Active Start: May 11, 2025 Dr. Ivette Grimes MD Attending Provider Active Start: May 11, 2025 Dr. Ivette Grimes MD Referring Provider Active Start: May 11, 2025 Team Status: Inactive Member Role/Relationship Status Dates Dr. Ivette Grimes MD Primary Care Provider Active Start: June 01, 2025 End: June 01, 2025 Dr. Ivette Grimes MD Referring Provider Active Start: June 01, 2025 End: June 01, 2025 Dr. Bibiana Rehman DC Attending Provider Active S tart: June 01, 2025 End: June 01, 2025 Payroll Processor Relationship Specialty Start Date End Date Ivette Grimse MD [address] [place], [place] [address] PCP - General Family Medicine 11/21/13 Jemal Orozco MD [address] [place], [place] [id number] Cardiology 10/31/22 Cindy Edouard APRN.TRANSFER PROFESSOR [address] [place], [place] [id number] Spa Attendant Family Medicine 10/12/24 Lubna De La Garza LICENSE CLERK.TRANSFER PROFESSOR [address] [place], [place] [id number] Spa Attendant Family Medicine 10/12/24 INFORMATION SOURCE (unrecogn ized section and content) DATE CREATED AUTHOR 01/25/2023 [facility] DATE CREATED AUTHOR AUTHOR'S ORGANIZ ATION 04/08/2025 [facility] DATE CREATED AUTHOR AUTHOR'S ORGANIZ ATION 06/06/2025 [facility] Inactive Administered Medications - up to 3 [...] BE BASED ON THE PRIMARY CLINICAL RECORDS. [employer] provides no warranty or guarantee of the accuracy or completeness of information in this document.
[2025-06-10 13:08] LABS: LDL, Direct 120295 96 mg/dL (0-99)
== END | disposition home or self-care (01) ==
PROVIDERS: PCP Family Medicine; Referring Provider Family Medicine; Visit Provider Family Medicine
DX: E11.29 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 kidney complication (principal); Z79.4 Long term (current) use of insulin; I10 Essential (primary) hypertension; R80.9 Proteinuria, unspecified
CPT/HCPCS: 36415; 83036; 83721

== ENCOUNTER 2025-06-23 06:20 | Day surgery (SDC) | payer OTHER, SELFPAY ==
--- NOTE | 2025-06-10 12:43 | EKG12_ITS ---
Test Reason : PRE OP Blood Pressure : */* mmHG Vent. Rate : 60 BPM Atrial Rate : 60 BPM P-R Int : 146 ms QRS Dur : 88 ms QT Int : 472 ms P-R-T Axes : 13 58 28 degrees QTcB Int : 472 ms Normal sinus rhythm Low voltage QRS Prolonged QT Abnormal ECG Confirmed by ANASTASIYA SHEARER, DALLIN ([id number]), editorial writer PRISCILA FERRERA ([id number]) on 06/11/2025 5:54:48 AM Referred By: Brett Quiroga Confirmed By: DALLIN LANGFORD MD
--- NOTE | 2025-06-15 16:47 | PAT.ANE_ITS ---
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 When Was Last Pacemaker Check QUESTION #4 FULL TEXT: You/Your Family Experience fever (hyperthermia) with Anesthesia Last Oral Intake Last Oral intake: Last Oral Intake NPO since Meds taken in AM with sips of water? Meds patient instructed to take am of surgery PONV PONV - regional sales leader: PONV - regional sales leader Female Yes 06/10/25 09:08 HX of Motion Sickness No 06/10/25 09:08 HX of N/V After Surgery Yes 06/10/25 09:08 Non-Smoker Yes 06/10/25 09:08 Duration of Surgery greater Yes 06/10/25 09:08 than 60 minutes Number of Risk Factors 4 06/10/25 09:08 PONV Score Severe Risk 06/10/25 09:08 Height & Weight Height & Weight: Anesthesia: Height & Weight Height 5 ft 7 in 05/06/25 10:04 Respiratory Assessment Respiratory Assessment - regional sales leader: Respiratory Tract Infection Hx - regional sales leader Hx Respiratory Tract Infection No 06/10/25 09:08 STOP Sleep Apnea STOP Sleep Apnea - regional sales leader: STOP Sleep Apnea - regional sales leader Hx Hypertension No: LISINOPRIL FOR LIVER 06/10/25 09:08 Hx Sleep Apnea Yes 06/10/25 09:08 CPAP No 06/10/25 09:08 BIPAP Yes 06/10/25 09:08 Do you snore loudly (louder than talking or can be heard Do you often feel tired/ fatigued/ sleepy during daytime? Has anyone observed you stop breathing during sleep? STOP Results Positive 06/10/25 09:08 QUESTION #5 FULL TEXT : Do you snore loudly (louder than talking or can be heard through closed doors)? 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 Specify any problems Hx of Preganancy in last 3 No 06/10/25 09:08 Months Nurse Filling Out Transfusion [email or web address] 06/10/25 09:08 & Questions: Date: 06/10/25 06/10/25 09:08 Time: 09:12 06/10/25 09:08 Patient unable to answer at this time (ie. confused, unrespo /Reproduction History /Reproductive History - regional sales leader: /Reproductive Hx- regional sales leader Hx Now No 06/10/25 09:08 Gestational Age (in weeks): EDC: Hx Hx Para Hx Section SAB No 06/10/25 09:08 [facility] Medical History (Updated 06/10/25 @ 09:17 by Peipto Underwood) Diabetes Fatty liver Gastric reflux BiPAP (biphasic positive airway pressure) dependence Sleep apnea Non-smoker History of stress test History of echocardiogram Cardiology follow-up encounter Abnormal ECG Prolonged Q-T interval on ECG Microalbuminuria LETITIA (obstructive sleep apnea) Back pain 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 Nausea Left shoulder pain Pain of left scapula Left upper extremity numbness Left shoulder strain Obstructive Sleep Apnea-Hypopnea Syndrome Fatty liver Type 2 diabetes mellitus with microalbuminuria Type 2 diabetes mellitus without complication, with long-term current use of insulin History of stent into kidney Anxiety Acute cholecystitis Segmental and somatic dysfunction of cervical region Migraines Acute bronchitis Acute respiratory insufficiency Dyspnea History of obstructive sleep apnea Elevated triglycerides with high cholesterol Calculus of left kidney Nonalcoholic hepatosteatosis Hydroureter, left Hydronephrosis, left Acute kidney injury Pyelonephritis Nephrolithiasis Obesity Hypertension Type 2 diabetes mellitus Segmental and somatic dysfunction of lumbar region Vertigo Left upper quadrant abdominal pain Dysuria Urinary tract infection Segmental and somatic dysfunction of pelvic region Segmental and somatic dysfunction of thoracic region Lumbar facet arthropathy Lumbosacral spondylosis Radiculopathy of lumbosacral region Disc displacement, lumbar Degeneration of intervertebral disc of lumbosacral region Home Medications ?Medication ?Instructions ?Recorded ?Last Taken ?Type blood sugar diagnostic (Blood #10 ea 04/26/20 Unknown History Glucose Test strips) ipratropium bromide 21 mcg (0.03 2 spray intranasal BI D PRN 08/23/20 08/03/23 History %) nasal spray allergies albuterol sulfate 90 mcg/actuation 2 puff inhalation Q 4H PRN 08/10/22 08/03/23 History aerosol inhaler shortness of breath or wheez ing fexofenadine 180 mg tablet 180 mg PO DAILY allergies 1 08/05/23 History (Allergy Relief (fexofenadine)) levonorgestrel 17.5 mcg/24 hr (up 1 device intrauterin e ONCE 08/10/22 Unknown History to 5 yrs) 19.5mg intrauterine control device tizanidine 4 mg tablet 4 mg PO Q8H PRN Muscle Spasm 08/10/22 08/04/23 History omeprazole 20 mg capsule,delayed 20 mg PO DAILY PRN ge rd 08/16/22 Unknown History release topiramate 100 mg tablet 100 mg PO BID seizures 08/1608/05/23 History fluoxetine 20 mg capsule 20 mg PO QHS mental health 0 12/28/22 08/04/23 History gabapentin 300 mg capsule 300 mg PO QHS nerve pain 08/05/23 History lisinopril 10 mg tablet 10 mg PO DAILY blood pressur e 12/28/22 08/05/23 History ondansetron HCl 4 mg tablet 4 mg PO Q8H PRN nausea Unknown History rimegepant 75 mg disintegrating 75 mg PO DAILY PRN rosalina ray 02/04/24 11/10/24 History tablet (Nurtec ODT) headache semaglutide 0.25 mg or 0.5 mg (2 0.5 mg subcut QWEEK 1 12/17/23 06/10/25 History mg/3 mL) subcutaneous pen injector (Ozempic) Allergy/AdvReac Type Severity Reaction Status Date / Time Corticosteroids Allergy Hives Verified 06/10/25 09:05 (Glucocorticoids) (steroids) lidocaine AdvReac Intermediate Hives Verified 06/10/25 09:05 Family History Father Diabetes Myocardial infarction Pancreatic cancer Mother Alcohol abuse Drug abuse Grandfather Diabetes Grandmother Lung cancer Grandmother Heart disease Triple bypass surgery Surgical History History of urethral stent (~2018) Hx laparoscopic cholecystectomy (~2005) H/O: (~2005) Social History Smoking Status: Never smoker alcohol intake: never substance use type: does not use caffeine: Yes Type: coffee what type of physical activity do you participate in: walking frequency: daily seatbelt use: always do you feel safe at home: Yes Audit: Pertinent Findings Pertinent Findings EKG Perinent findings: June 10, 2025. Normal sinus rhythm. Prolonged QT. Stress test pertinent findings: April 14, 2019. EF is 60% at rest increased to 75% with stress. Negative stress echocardiogram Echo (EF%) pertinent findings: August 06, 2023. EF is 60%. No aortic valve stenosis is noted. Consult pertinent findings: March 09, 2024. Dr. Keenan. 1. Abnormal EKG-EKG in office today shows normal QT interval with normal sinus rhythm and nonspecific T wave changes and poor R wave progression and low voltage consistent with her body habitus. Previous prolonged QT interval has resolved. Continue to monitor with yearly EKGs. 2. Hypertension-stable. Continue TRUNG inhibitor. 3. Obstructive sleep apnea-continue to treat. Recommendation Anesthesia Recommendation Anesthesia recommendation: OPTIMIZED for anesthesia (Caution when treating with ondansetron as it may prolong the QT interval further.)
[2025-06-23] VITALS (11 sets, daily range): BP systolic 110–116; BP diastolic 55–70; PULSE 65–75; RESP 12–18; TEMP 35.9–36.6; O2SAT 86–98; BMI 43.4
--- OUTSIDE RECORDS SUMMARY | 2025-06-23 06:27 | XMS RPT_ITS | CCD ---
Author Organization [facility] Care Team Providers Care Bath Steward Name Role Phone Dossi Bibiana BEEBE Unavailable Roya Dixon Unavailable Roya Dixon Unavailable Amparo Hitchcock MD Unavailable [phone] Ivetet Grimes MD Primary Care Provider [facility], Keti Unavailable Dr. Ivette Grimes Primary Care Provider Dr. Ivette Grimes Referring Provider Dr. Bibiana Rehman Attending Provider [phone] Dr. Munir Siddiqui Attending Provider Dr. Marin Villalpando Attending Provider [phone] Dr. Munir Lucas Attending Provider Dr. Sam Greene Referring Provider Ivette Grimes MD Primary Care Provider [facility], [place]eti Unavailable Kait [facility], Keti Unavailable Dr. Ivette Grimes Primary Care Provider Dr. Ivette Grimes Referring Provider Dr. Bibiana Rehman Attending Provider [phone] Ivette Grimes MD Primary Care Provider Dr. Ivette Grimes Primary Care Provider Dr. Ivette Grimes Referring Provider Dossi, Dr. Mccarty Attending Provider [phone] Dr. Primo Ceron Attending Provider [place], Dr. Mcgarry Primary Care Provider Sydney, Dr. Mcgarry Referring Provider Dossi, Dr. Mccarty Attending Provider [phone] Cesar, Dr. Churchill Attending Provider [place], Dr. Mcgarry Primary Care Provider [place], Dr. Mcgarry Referring Provider Dossi, Dr. Mccarty Attending Provider [phone] [place], Dr. Mcgarry Primary Care Provider [place], Dr. Mcgarry Referring Provider Dossi, Dr. Mccarty Attending Provider [phone] Dr. Primo Ceron Attending Provider Cesar, Dr. Churchill Attending Provider [phone] [place] Ivette SHEARER Primary Care Provider [facility], [place] Unavailable [place], Dr. Mcgarry Primary Care Provider [phone] [place], Dr. Mcgarry Referring Provider Dossi, Dr. Mccarty Attending Provider [phone] Ernesto SHEARER, Jemal Unavailable [place], Dr. Mcgarry Primary Care Provider [place], Dr. Mcgarry Referring Provider Dossi, Dr. Mccarty Attending Provider [phone] [place], Dr. Mcgarry Primary Care Provider Sydney, Dr. [...] Unavailable ADELINA MASON Referring Unavailable SYDNEY, IVETTE Jaems Primary Care Unavailable SANCHEZ, ELLE Admitting Unavailable SANCHEZ, ELLE Attending Unavailable SYDNEY, IVETTE James Primary Care Unavailable [place], Dr. Mcgarry Primary Care Provider [place], Dr. Mcgarry Referring Provider Dossi, Dr. Mccarty Attending Provider [phone] [place], Dr. Mcgarry Primary Care Provider [place], Dr. Mcgarry Referring Provider Dossi, Dr. Mccarty Attending Provider [phone] [place], Dr. Mcgarry Primary Care Provider [place], Dr. Mcgarry Referring Provider Dossi, Dr. Mccarty Attending Provider [phone] [place], Dr. Mcgarry Primary Care Provider [place], Dr. Mcgarry Referring Provider Dossi, Dr. Mccarty Attending Provider [phone] [place], Dr. Mcgarry Primary Care Provider [place], Dr. Mcgarry Referring Provider Dossi, Dr. Mccarty Attending Provider [phone] Referred, Self Primary Care Provider Unavailabl e Referred, Self Referring Provider Unavailable [facility], [place] Unavailable Dossi, Dr. Mccarty Attending Provider [phone] Referred, Self Primary Care Provider Unavailabl e Referred, Self Referring Provider Unavailable [place], Dr. Mcgarry Primary Care Provider [facility], Dr. Banuelos Attending Provider [facility], Dr. Sosa Chirinos Referring Provider Dr. Niurka [...] Provider Ivette Grimes MD Primary Care Provider [facility], [place]eti Unavailable Haagen INSURANCE VERIFICATION 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.POLYGRAPH EXAMINER, Cindy Unavailable Suppan INSURANCE VERIFICATION 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.POLYGRAPH EXAMINER, Lub[place] A Unavailable [phone] Suppan INSURANCE VERIFICATION 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.POLYGRAPH EXAMINER, [place] A Unavailable [phone] Suppan INSURANCE VERIFICATION 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.POLYGRAPH EXAMINER, [place] A Unavailable [phone] Dr. Ivette Grimes MD Primary Care Provider Dr. Sam Pearl MD Attending Provider Dr. Sam Pearl MD Emergency Provider Dr. Ivette Grimes MD Referring Provider Dossi CONCEPCIÓN, Dr. Mccarty Attending Provider Dr. Buddy Hall DO Attending Provider Dr. Buddy Hall DO Emergency Provider Tanya ENAMEL MACHINE OPERATOR-CJenni Attending Provider Tanya ENAMEL MACHINE OPERATOR-CJenni Referring Provider Dr. Ivette Grimes MD Attending Provider Sydney SHEARER, Dr. Mcgarry Primary Care Provider Sydney SHEARER, Dr. Mcgarry Referring Provider Dossi DC, Dr. Mccarty Attending Provider [phone] Junaid SHEARER, Brett Attending Provider Junaid SHEARER, Brett Referring Provider [phone] Sydney SHEARER, Dr. Mcgarry Primary Care Provider Sydney SHEARER, Dr. Mcgarry Primary Care Provider Sydney SHEARER, Dr. Mcgarry Referring Provider Sydney SHEARER, Dr. Mcgarry Attending Provider Sydney SHEARER, Dr. Mcgarry Primary Care Provider Sydney SHEARER, Dr. Mcgarry Referring Provider Dossi DC, Dr. Mccarty Attending Provider [phone] Assessment, Health Risk Attending Provider Unava ilable Assessment, Health Risk Referring Provider Unava ilable Jyoti SHEARER, Dr. Banuelos Attending Provider Brett Quiroga Attending Unavailable Brett Quiroga Referring Unavailable [place], Ivette Primary Care Unavailable [place], Ivette Primary Care Unavailable [place], Ivette Attending Unavailable [place], Ivette Referring Unavailable Dossi, Bibiana Attending Unavailable Sydney, Ivette Referring Unavailable [place], Ivette Primary Care Unavailable Sam Pearl Attending Unavailable Sydney, Ivette Primary Care Unavailable Brett Quiroga Attending Unavailable Brett Quiroga Referring Unavailable [place], Ivette Primary Care Unavailable Jenni Martínez Attending Unavailable Jenni Martínez Referring Unavailable Sydney, Ivette Primary Care Unavailable Buddy Hall Attending Unavailable Sydney, Ivette Primary Care Unavailable Sydney, Ivette Attending Unavailable Sydney, Ivette Referring Unavailable [place], Ivette Primary Care Unavailable Dossi, Bibiana Attending Unavailable Sydney, Ivette Primary Care Unavailable [place], Ivette Referring Unavailable Sydney, Ivette Primary Care Unavailable Dossi, Bibiana Attending Unavailable [place], Ivette Referring Unavailable Dossi, Bibiana Attending Unavailable [place], Ivette Primary Care Unavailable Sydney, Ivette Referring Unavailable [place], Ivette Primary Care Unavailable Dossi, Bibiana Attending Unavailable Sydney, Ivette Referring Unavailable Dossi, Bibiana Attending Unavailable Sydney, Ivette Primary Care Unavailable [place], Ivette Referring Unavailable Sydney, Ivette Primary Care Unavailable Dossi, Bibiana Attending Unavailable [place], Ivette Referring Unavailable Dossi, Bibiana Attending Unavailable [place], Ivette Referring Unavailable Sydney, Ivette Primary Care Unavailable Mollison, Brett Referring Unavailable Mollison, Brett Attending Unavailable Sydney, Viette Primary Care Unavailable Assessment, Health Risk Attending Unavaila ble Assessment, Health Risk Referring Unavaila ble Sydney, Ivette Primary Care Unavailable Sydney, Ivette Attending Unavailable [place], Ivette Referring Unavailable [place], Ivette Primary Care Unavailable Sydney, Ievtte Primary Care Unavailable Dossi, Bibiana Attending Unavailable Sydney, Ivette Referring Unavailable Jess ENAMEL MACHINE OPERATOR, Jesenia Attending Unavailable [place], Ivette Referring Unavailable Sydney, Ivette Primary Care Unavailable Mollison, Brett Referring Unavailable Vin Montes Attending Unavailable Sydney, Ivette Primary Care Unavailable Dossi, Bibiana Attending Unavailable Sydney, Ivette Primary Care Unavailable [place], Ivette Referring Unavailable Sydney, Ivette Primary Care Unavailable Dossi, Bibiana Attending Unavailable Sydney, Ivette Referring Unavailable [place], Ivette Primary Care Unavailable Sydney, Ivette Attending Unavailable [place], Ivette Referring Unavailable Sydney, Ivette Primary Care Unavailable Dossi, Bibiana Attending Unavailable [place], Ivette Referring Unavailable [place], Ivette Primary Care Unavailable Dossi, Bibiana Attending Unavailable Sydney, Ivette Referring Unavailable Mollison, Brett Attending Unavailable [place], Ivette Referring Unavailable Sydney, Ivette Primary Care Unavailable Dossi, Bibiana Attending Unavailable Sydney, Ivette Referring Unavailable [place], Ivette Primary Care Unavailable Dossi, Bibiana Attending Unavailable [place], Ivette Referring Unavailable [place], Ivette Primary Care Unavailable Mollison, Brett Attending Unavailable Sydney, Ivette Referring Unavailable [place], Ivette Primary Care Unavailable Sydney, Ivette Referring Unavailable [place], Ivette Primary Care Unavailable [place], Ivette Attending Unavailable JENNI MARTÍNEZ Attending Unavailabl e SYDNEY, IVETTE J Primary Care Unavailable SYDNEY, IVETTE J Primary Care Unavailable SYDNEY, IVETTE J Attending Unavailable SYDNEY, IVETTE J Primary Care Unavailable SYDNEY, IVETTE J Attending Unavailable SYDNEY, IVETTE J Primary Care Unavailable FATUMA BECKFORD Referring Unavailable FATUMA BECKFORD Attending Unavailable SYDNEY, IVETTE J Primary Care Unavailable SYDNEY, IVETTE J Attending Unavailable SYDNEY, IVETTE J Attending Unavailable SYDNEY, IVETTE J Primary Care Unavailable SYDNEY, IVETTE J Attending Unavailable SYDNEY, IVETTE J Primary Care Unavailable AMANDA ARTEAGA Attending Unavailable SYDNEY, IVETTE J Primary Care Unavailable SYDNEY, IVETTE J Primary Care Unavailable IVETTE GRIMES Attending Unavailable IVETTE GRIMES Attending Unavailable IVETTE GRIMES Primary Care Unavailable Allergies Allergy Classification Reported Allergen(s) Allergy Type Date of Onset Reaction(s) Facility (20 sources) Betamethasone; Translations: [BETAMETHASONE DIPROPIONATE] Drug Allergy 12-21-19 [facility] Work Phone: (20 sources) Lidocaine; Translations: [LIDOCAINE] Drug Allergy 12-24-19 [facility] Work Phone: (7 sources) Corticosteroids Allergy to substance 01-01-20 [facility] Work Phone: (20 sources) Glucocorticoid Receptor Agonists Allergy to substance 10-16-20 [facility] (20 sources) dapagliflozin; Translations: [DAPAGLIFLOZIN] Drug Allergy 08-05-20 [facility] (20 sources) metFORMIN; Translations: [METFORMIN] Drug Allergy 08-05-20 [facility] (1 source) Corticosteroids Drug allergy (disorder) 06-17-20 [facility] (1 source) Lidocaine Drug Allergy 06-17-20 [facility] Medications Current Medications Medication Drug Class(es) Dates Sig (Normalized) Sig (Original) [id number] 200 actuat albuterol 0.09 mg/actuat metered dose [...] Take 1 tablet by ishmael once daily. FLUoxetine 20 mg oral capsule [...] on above: Take 1 capsule by mo [facility] once daily for 7 days, THEN 2 capsules once daily. Take 1 capsule by [facility] once daily. gabapentin 300 mg oral capsule (20 sources) Anti-epileptic Agent Start: 12-28-2022 End: 12-04-2025 take 1 capsule by mouth once daily gabapentin (NEURONTIN) 300 mg capsule Indications: Headache, unspecified headache type Take 1 capsule by mouth once daily for 180 days. 90 capsule 06/07/2025 12/04/2025 Active Start: 12-28-2022 End: 07-21-2025 take 1 capsule [...] 3:46pm Start: 05-22-2017 take 1 capsule by [facility] three times daily GABAPENTIN 300 MG CAPS 1 po tid GABAPENTIN [id number] Jackson Brown Comment on above: Take 2 capsules by m [facility] twice daily for 90 days. Take 1 tablet in AM, afternoon and bedtime. If after 2 days symptoms persist, increase to 1 tab in AM, afternoon and 2 tabs at bedtime. Take one po qhs Take 1 capsule by [facility] twice daily for 180 days. Take one po qhs ipratropium bromide 0.021 mg/actuat metered dose nasal spray (20 sources) Anticholinergic Start: 05-02-2023 Ipratropium Milton (ATROVENT) 21 mcg (0.03 %) nasal spray Use 2 Sprays in the nose every 12 hours. 30 mL 5 05/02/2023 Active Start: 08-23-2020 Ipratropium Br omide 0.03 % spray,non-aerosol Active 2 NMA INTRANASAL TWICE A DAY as needed for allergies August 23, 2020 12:00am administer into each nostril Start: 08-23-2020 take 1 spray(s) nasa l route twice daily Ipratropium Milton Active 2 SPRAY INTRANASAL TWICE A DAY August 23, 2020 12:00am administer into each nostril Start: 03-14-2020 End: 05-01-2023 Ipratropium [place] (ATROVEN T) 0.03 % nasal spray Use [...] the CT contrast administration guidelines link. levonorgestrel 0.396349 mg/hr intrauterine system (20 sources) Progestin, Progestin-containing [...] Start: 09-09-2017 JOJO 13.5 MG IUD LEVONORGESTREL [id number] Amparo Hitchcock MD Comment on above: 1 [...] (20 sources) Nitrofuran Antibacterial Start: 09-24-2024 End: 11-26-2024 take 1 capsule by mouth twice daily [...] 2021 4:26pm must administer with a meal/food [place]-3 Fatty Acids (Fish Oil Concentrate) 1,000 mg capsule (20 sources) Start: 02-21-2021 take 1 capsule by mouth once daily [place]-3 Fatty Acids (Fish Oil Concentrate) 1,000 mg capsule Active 1000 MG PO DAILY February 21, 2021 9:19am Start: 02-21-2021 End: 10-16-2024 take 1 capsule by mouth once daily [place]-3 Fatty Acids (Fish Oil Concentrate) 1,000 mg capsule Discontinued 1000 mg PO DAILY February 21, 2021 12:00am October 16, 2024 10:15pm supplement Start: 02-21-2021 End: 10-16-2024 take 1 capsule by mouth once daily [place]-3 Fatty Acids (Fish Oil Concentrate) 1,000 mg capsule Discontinued 1000 mg PO DAILY February 21, 2021 12:00am October 16, 2024 10:15pm Start: 02-21-2021 take 1 capsule by [facility] once daily [place]-3 Fatty Acids (Fish Oil Concentrate) 1,000 mg capsule Active 1000 MG PO DAILY February 20, 2021 11:00pm Start: 02-21-2021 take 1 capsule by [facility] once daily [place]-3 Fatty Acids (Fish Oil Concentrate) 1,000 mg capsule Active 1000 MG PO DAILY February 21, 2021 12:00am Vgvshjsl-Ui-Ius-Fe-FA tab (20 sources) Start: 03-14-2011 take 1 tablet by mouth once daily Wfiitwtm-Yd-Gkg-Fe-FA tab Take 1 tablet by mouth once daily. 0 03/14/2011 Active Comment on above: Take 1 tablet by ishmael once daily. qaznorda-egb-Tw-FA 1 mg capsule (20 sources) Start: 04-26-2020 take 1 capsule by mouth once daily ugbzbikm-qut-Qw-FA 1 mg capsule Active 1 CAP PO DAILY April 26, 2020 10:18am Start: 04-26-2020 End: 08-05-2023 take 1 capsule by mouth once daily uurryktf-lbl-Ya-FA 1 mg capsule Discontinued 1 CAP PO DAILY April 25, 2020 11:00pm August 05, 2023 10:25am Start: 04-26-2020 End: 08-05-2023 take 1 capsule by mouth once daily uljunkvx-tcw-Cb-FA 1 mg capsule Discontinued 1 CAP PO DAILY April 26, 2020 12:00am August 05, 2023 11:25am Start: 04-26-2020 take 1 capsule by mo azh once daily noliecog-rxs-Be-FA 1 mg capsule Active 1 CAP PO DAILY April 25, 2020 11:00pm Start: 04-26-2020 take 1 capsule by mo [facility] once daily ibotrddq-ont-Ap-FA 1 mg capsule Active 1 CAP PO DAILY April 26, 2020 12:00am rimegepant 75 mg disintegrating oral tablet (20 sources) Start: 12-26-2023 End: 09-02-2024 take 1 tablet by mouth once daily as needed rimegepant (NURTEC ODT) 75 mg disintegrating tablet Take 1 tablet by mouth once daily as needed. 8 tablet 2 09/02/2024 Active Comment on above: Take 1 tablet by [facility] once daily as needed. Semaglutide (11 sources) Start: 10-16-2024 Semaglutide (Ozempic) 0.25 mg or 0.5 mg (2 mg/3 mL) pen injector Active 0.5 mg SC EVERY WEEK October 16, 2024 1:00am semaglutide (OZEMPIC) 2 mg/dose (8 mg/3 mL) pen injector (2 sources) Start: 06-09-2025 End: 12-06-2025 inject 2 mg by subcutaneous injection every week semaglutide (OZEMPIC) 2 mg/dose (8 mg/3 mL) pen injector Indications: Type 2 diabetes mellitus with microalbuminuria, with long-term current use of insulin (HCC) Inject 2 mg subcutaneously one time a week. 3 mL 5 06/09/2025 12/06/2025 Active tiZANidine 4 mg oral tablet (20 sources) Central alpha-2 Adrenergic Agonist Start: 08-10-2022 End: 08-06-2025 take 1 tablet by mouth every eight hours as needed for muscle spasms tiZANidine (ZANAFLEX) 4 mg tablet Indications: Flank pain Take 1 tablet by mouth every 8 hours as needed (muscle spasms). 60 tablet 06/07/2025 08/06/2025 Active Start: 08-01-2022 take 1 tablet by [...] as needed for muscle spasms TIZANIDINE HCL [id number] Sammy Victor HEADING REPAIRER-C Start: 04-29-2017 End: 08-10-2022 take 1 tablet by mouth once daily as needed for muscle spasms Tizanidine 4 MG tablet Discontinued 4 mg PO DAILY NEEDED as needed for Muscle Spasm April 29, 2017 12:00am August 10, 2022 3:09pm Start: 04-26-2017 End: 05-06-2017 ZANAFLEX 2 MG CAPS Take 1-2 tablets every 8 hours as needed. TIZANIDINE HCL [id number] Santana IRENE Comment on above: Take 1 [...] Start: 09-09-2017 TROKENDI XR 20 0 MG [id number] TOPIRAMATE [id number] Amparo Hitchcock MD Start: 09-28-2016 End: 09-09-2017 TOPIRAMATE 15 MG CPSP 11/28 TOPIRAMATE [id number] Santana IRENE Comment on above: Take 1 tablet by ishmael th twice daily. Take 1 tab in AM and 2 tabs in PM. One tab daily Take 1 tablet by ishmael th two times a day. Completed/Discontinued Medications Medication Drug Class(es) Dates Sig (Normalized) Sig (Original) ACETAMINOPHEN CAPS (5 sources) Start: 09-28-2016 End: 09-09-2017 TYLENOL CAPS ACETAMINOPHEN CAPS [id number] Amparo Hitchcock MD Start: 09-28-2016 TYLENOL CAPS 2 ACETAMINOPHEN CAPS [id number] Santana IRENE acetaminophen 325 mg / HYDROcodone [...] one every 6 hours as needed. HYDROCODONE-ACETAMINOPHEN [id number] Santana IRENE acetaminophen 325 mg / oxyCODONE [...] tablet Discontinued 875 mg PO Q12H 14 February 17, 2019 12:00am February 25, 2019 [...] 04/09/2022 Active Start: 08-01-2020 CPAP Indicatio ns: LETTIIA (obstructive sleep apnea) Please fit with a [...] MG PO THREE TIMES DAILY BEFORE MEALS 20 May 08, 2019 12:00am April 26, 2020 10:16am diflunisal 500 mg oral tablet (5 sources) Nonsteroidal Anti-inflammatory Drug Start: 05-02-2017 End: 09-09-2017 DIFLUNISAL 500 MG TABS DIFLUNISAL [id number] Raghav IRENE 0.5 ml dulaglutide 1.5 mg/ml [...] tablet Discontinued 500 mg PO DAILY 10 0 June 21, 2021 12:00am January 01, 2022 4:28pm LORazepam 1 mg oral tablet (20 sources) Benzodiazepine Start: 02-27-2023 End: 03-28-2023 LORazepam (ATIVAN) 1 mg tablet Indications: Anxiety One tab one hour before test 1 tablet 0 02/27/2023 03/28/2023 Start: 09-28-2016 LORAZEPAM 1 MG TABS LORAZEPAM [id number] Santana IRENE Start: 10-27-2013 End: 04-26-2020 take [...] pack Discontinued 0 PO per package directions 21 0 August 07, 2021 12:00am September 13, 2021 [...] a month. ofloxacin 3 mg/ml otic solution (16 sources) Quinolone Antimicrobial Start: 10-27-2023 End: 12-10-2023 [...] both ears once daily for 7 days. [place]-3 Fatty Acids (20 sources) Start: 04-26-2020 End: 08-23-2020 take 500 mg by mouth once daily [place]-3 Fatty Acids Discontinued 500 MG PO DAILY April 26, 2020 10:19am August 23, 2020 10:22am Start: 04-26-2020 End: 08-23-2020 take 500 mg by mouth once daily [place]-3 Fatty Acids Discontinued 500 MG PO DAILY April 25, 2020 11:00pm August 23, 2020 9:22am Start: 04-26-2020 End: 08-23-2020 take 500 mg by mouth once daily [place]-3 Fatty Acids Discontinued 500 MG PO DAILY April 26, 2020 12:00am August 23, 2020 10:22am [place]-3 Fatty Acids (FISH OIL) 500 mg cap (20 sources) Start: 10-09-2019 End: 06-07-2025 take 1 capsule by mouth once daily [place]-3 Fatty Acids (FISH OIL) 500 mg cap Take 1 capsule by mouth once daily. 30 capsule 11 10/09/2019 06/07/2025 Discontinued Start: 10-09-2019 take 1 capsule by mo uth once daily [place]-3 Fatty Acids (FISH OIL) 500 mg cap Take 1 capsule by mouth once daily. 30 capsule 11 10/09/2019 Active Comment on above: Take 1 capsule by mo uth once daily. [place]-3 Fatty Acids 500 mg capsule (11 sources) Start: 0 End: 0 take 1 capsule by mouth once daily [place]-3 Fatty Acids 500 mg capsule Discontinued 500 mg PO DAILY April 26, 2020 12:00am August 23, 2020 10:22am omeprazole 20 mg delayed release oral capsule (20 sources) Proton Pump Inhibitor Start: 2 End: 5 take 1 capsule by mouth once daily before breakfast omeprazole (PRILOSEC) 20 mg capsule Indications: LUQ pain Take 1 capsule by mouth daily before breakfast. 1/2 hr before meal. 90 capsule 3 03/27/2023 06/16/2025 Discontinued Start: 04-26-2020 End: 08-10-2022 take 1 tablet by mouth once daily Omeprazole Magnesium (Prilosec Otc) 20 mg tablet,delayed release (DR/EC) Discontinued 20 mg PO DAILY April 26, 2020 12:00am August 10, 2022 3:03pm Comment on above: Take 1 capsule by mo ut daily before breakfast. 1/2 hr before meal. ondansetron 4 mg oral tablet (20 sources) Serotonin-3 Receptor Antagonist Start: 3 End: 5 take 1 tablet by mouth every eight hours as needed for nausea ondansetron (ZOFRAN) 4 mg tablet Indications: Flank pain Take 1 tablet by mouth every 8 hours as needed for nausea/vomiting. 29 tablet 10/19/2024 06/16/2025 Discontinued Start: 04-26-2020 End: 08-10-2022 take 1 tablet [...] every 8 hours as needed for nausea/vomiting. PARoxetine hydrochloride 10 mg oral tablet (20 sources) Serotonin Reuptake Inhibitor Start: 2017 End: 2018 take 1 tablet by mouth once daily Paroxetine Hcl 10 MG tablet Discontinued 10 mg PO DAILY July 22, 2018 12:00am February 17, 2019 4:36pm DEPRESSION phenazopyridine hydrochloride 200 mg oral tablet (20 sources) Start: 2018 End: 2018 take 1 tablet by mouth three times daily as needed for muscle spasms Phenazopyridine 200 MG tablet Discontinued 200 mg PO 3 TIMES DAILY NEEDED as needed for Bladder Spasms 30 7 0 February 25, 2019 12:00am March 03, 2019 12:00am March 04, 2019 12:07am phentermine hydrochloride 37.5 mg oral capsule (1 source) Sympathomimetic Amine Anorectic Start: 2016 take 1 tablet by mouth once daily ADIPEX-P 37.5 MG CAPS One tablet by mouth daily PHENTERMINE HCL [id number] Amparo Hitchcock MD potassium chloride 20 meq powder for oral solution (20 sources) Start: 2024 End: 2024 take 20 mEq by mouth twice daily Potassium Chloride 20 mEq packet Discontinued 20 meq PO TWICE A DAY 30 7 0 November 11, 2024 1:00am June 10, 2025 9:06am predniSONE 50 mg oral tablet (5 sources) Corticosteroid Start: 2016 End: 2016 PREDNISONE 50 MG TABS 1 tablet every morning PREDNISONE [id number] Raghav IRENE pregabalin 75 mg oral capsule (14 sources) Start: 2021 End: 2021 pregabalin (LYRICA) 75 mg capsule Indications: fibromyalgia [...] on pill 3 times per day thereafter Nkbmckih-Ev-Tlz-Fe-FA ( FORMULA) ORAL Tab (20 sources) Start: 2010 take 1 tablet by mouth once daily Lsnhansf-Gs-Aas-Fe-FA ( FORMULA) ORAL Tab Take 1 tablet by mouth once daily. 0 03/14/2011 Active Comment on above: Take 1 tablet by ishmael th once daily. Otafwdng-Nez-Tq-Fa 1 mg capsule (11 sources) Start: 2019 End: 2022 take 1 capsule by mouth once daily Bdcotgfb-Mhi-Ic-Fa 1 mg capsule Discontinued 1 NMA PO DAILY April 26, 2020 12:00am August 05, 2023 11:25am promethazine hydrochloride 25 mg oral tablet (20 sources) Phenothiazine Start: 2019 End: 2021 take 1 tablet by mouth every six hours as needed for nausea Promethazine 25 MG tablet Discontinued 25 mg PO EVERY 6 HOURS NEEDED as needed for Nausea 10 0 July 11, 2020 12:00am August 10, 2022 3:08pm 24 hr propranolol hydrochloride 60 mg extended release oral capsule (20 sources) beta-Adrenergic [place] Start: 2020 End: 2021 take 1 capsule by mouth once daily Propranolol 60 mg capsule,extended release 24 hr Discontinued 60 mg PO DAILY February 21, 2021 12:00am January 01, 2022 4:29pm rizatriptan 10 mg oral tablet (20 sources) Serotonin-1b and Serotonin-1d Receptor Agonist Start: 2022 End: 2023 take 1 tablet by mouth once Rizatriptan [...] week. 3 mL 2 08/05/2024 02/01/2025 Active semaglutide (OZEMPIC) 1 mg/dose (4 mg/3 mL) pen (14 sources) Start: 01-22-2025 End: 06-09-2025 inject 1 mg by subcutaneous injection every week semaglutide (OZEMPIC) 1 mg/dose (4 mg/3 mL) pen Indications: Type 2 diabetes mellitus with microalbuminuria, with long-term current use of insulin (HCC) Inject 1 mg subcutaneously one time a week. 3 mL 5 01/22/2025 06/09/2025 Discontinued Start: 01-22-2025 End: 07-21-2025 inject 1 mg by subcutaneous injection every week semaglutide (OZEMPIC) 1 mg/dose (4 mg/3 mL) pen Indications: Type 2 diabetes mellitus with microalbuminuria, with long-term current use of insulin (HCC) Inject 1 mg subcutaneously one time a week. 3 mL 5 01/22/2025 07/21/2025 Active sulfamethoxazole 800 mg / trimethoprim 160 [...] {tbl} PO TWICE A DAY 6 3 0 February 25, 2019 12:00am February 27, 2019 [...] sided abdominal pain; Translations: [Unspecified abdominal pain] Onset: 06-07-20 25 03-02-2019 Episodic Acute and unspecified renal failure (20 sources) Injury of kidney; Translations: [Acute kidney failure, unspecified] 08-10-2022 Episodic Acute bronchitis (20 sources) Acute bronchitis 07-23-2022 Episodic Anxiety disorders (20 sources) Anxiety; Translations: [Anxiety disorder, unspecified] Onset: 06-07-20 14 06-07-2014 Chronic Blindness and vision defects (12 sources) Subjective visual disturbance; Translations: [Unspecified subjective visual disturbances] 02-04-2024 Episodic Delirium, dementia, and amnestic and other cognitive disorders (13 sources) Postconcussion syndrome; Translations: [Postconcussional syndrome] Chronic Diabetes mellitus with complications (20 sources) Type 2 diabetes mellitus; Translations: [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 kidney complication] Onset: 07-04-20 18 Resolved : 09-04-20 22 10-09-2019 Chronic Diabetes mellitus without complication (11 sources) Type 2 diabetes mellitus without complications; [...] The patient is not on statin therapy. Genitourinary symptoms and ill-defined conditions (20 sources) Microalbuminuria; Translations: [Proteinuria, unspecified] Onset: 09-30-20 Resolved : 09-04-2009-30-2018 Episodic Headache; including migraine (20 sources) Migraine; Translations: [Migraine, unspecified, not intractable, without status migrainosus] Onset: 09-04-20 Chronic Headache; including migraine (2 sources) Headache; including migraine; Translations: [Headache, unspecified] Onset: [...] region; Translations: [Nonallopathic lesions, cervical region] Onset: 06-17-20 Episodic Other bone disease and musculoskeletal deformities (20 sources) Segmental and somatic dysfunction of lumbar region; Translations: [Nonallopathic lesions, lumbar region] Onset: 06-17-20 Episodic Other bone disease and musculoskeletal deformities (20 sources) Segmental and somatic dysfunction of pelvic region; Translations: [Nonallopathic lesions, pelvic region] Onset: 06-17-20 Episodic Other bone disease and musculoskeletal deformities (20 sources) Segmental and somatic dysfunction of thoracic region; Translations: [Nonallopathic lesions, thoracic region] Onset: 06-17-20 Episodic Other circulatory disease (1 source) Elevated [...] Episodic Other ear and sense organ disorders (14 sources) Otitis externa; Translations: [Unspecified otitis externa, [...] not elsewhere classified] Onset: 01-18-2012-27-2022 Chronic Other liver diseases (1 source) Fatty (change of) liver, not elsewhere classified; Translations: [Nonalcoholic fatty liver] Onset: 01-18-20 Chronic Other lower respiratory disease (20 sources) [...] sense organs] Episodic Other nervous system disorders (15 sources) Facial paresthesia; Translations: [Paresthesia of skin] 08-09-2023 Episodic Other nervous system disorders (15 sources) Paresthesia of left lower limb; Translations: [Paresthesia of skin] 08-09-2023 Episodic Other nervous system disorders (15 sources) Paresthesia of left upper limb; Translations: [Paresthesia of skin] 08-09-2023 Episodic Other nervous system disorders (6 sources) Paresthesia of skin; Translations: [Disturbance of skin sensation] 08-07-2023 Episodic Other nutritional; endocrine; and metabolic disorders [...] (pediatric); Translations: [Obstructive sleep apnea (adult)(pediatric)] Onset: 06-07-2012-06-2022 Chronic Residual codes; unclassified (1 source) Transient alteration of awareness; Translations: [Transient alteration of awareness] Episodic Residual codes; unclassified (1 source) Amnesia; Translations: [Other amnesia] 06-07-2023 Episodic Spondylosis; intervertebral disc disorders; other back problems (20 sources) Lumbar disc prolapse with radiculopathy; Translations: [Disorder of lumbar disc] Onset: 05-06-20 09 Resolved : 01-24-20 10 06-24-2017 Chronic Spondylosis; [...] unspecified; Translations: [Cough, unspecified] Onset: 08-13-20 24 Unclassified (1 source) Obesity, Class III, BMI 40-49.9 (morbid obesity) ([facility]); Translations: [Obesity, Class III, BMI 40-49.9 (morbid obesity) ([facility])] Onset: 01-03-20 Urinary tract infections (20 sources) Urinary tract [...] encounter] Onset: 09-04-2022 Resolved: 09-04-2022 05-06-2020 Episodic Fluid and electrolyte disorders (20 sources) Dehydration; Translations: [Dehydration] Onset: 12-11-2024 12-11-2024 Episodic Headache; including migraine (20 sources) Headache; Translations: [Headache] Onset: 09-04-2022 Resolved: 09-04-2022 Episodic Hypertension complicating ; childbirth and the [...] 09-04-2022 03-24-2020 Episodic Other aftercare (1 source) [facility]DC (current) use of insulin; Translations: [Type 2 [...] in left shoulder] Onset: 01-02-2023 Episodic Other non-traumatic joint disorders (20 sources) Pain in left shoulder; Translations: [Left shoulder pain] Onset: 01-02-2023 08-10-2022 Episodic Other nutritional; endocrine; and metabolic [...] unspecified] Onset: 09-04-2022 Resolved: 09-04-2022 02-04-2024 Episodic Sprains and strains (20 sources) [...] stent into kidney 05-30-2022 Comment on above: 2019 Unclassified (2 sources) Patient encounter status 12-12-2024 Viral infection (20 sources) Viral disease; Translations: [Viral infection, unspecified] Onset: 09-04-2022 Resolved: 09-04-2022 07-12-2020 Episodic Results Test Name Value Interpretation Reference Range Facility Chiropractic Reporton 2024 Chiropractic Report [facility] [address] [place] [address] OFFICE VISIT Date of Service: 06/17/25 MR#: [id number] Acct: [id number] Name: TORI GRAY Rep #: [id number] : 1980 Provider: CONCEPCIÓN Montgomery Age/Sex: 45/F Location: [facility] Status: Signed Intake Vital Signs 05/06/25 10:04 Height 5 ft 7 in Intake Visit Reasons: Back pain Chief Complaint: low back pain Allergies Corticosteroids (Glucocorticoids) (steroids) Allergy (Verified 06/17/25 09:44) Hives lidocaine Adverse Reaction (Intermediate, Verified 06/17/25 09:44) Hives Medications ???Medication ???Instructions ???Recorded ???Confirmed ???Type blood sugar diagnostic (Blood #10 ea 04/26/20 06/17/25 History Glucose Test strips) ipratropium bromide 21 mcg (0.03 2 spray intranasal BID PRN 0 06/17/25 History %) nasal spray allergies albuterol sulfate 90 mcg/actuation 2 puff inhalation Q4H PRN 06/17/25 History aerosol inhaler shortness of breath or wheezing fexofenadine 180 mg tablet 180 mg PO DAILY allergies 08/10/22 06/17/25 History (Allergy Relief (fexofenadine)) levonorgestrel 17.5 mcg/24 hr (up 1 device intrauterine ONCE 08/10/22 06/17/25 History to 5 yrs) 19.5mg intrauterine control device tizanidine 4 mg tablet 4 mg PO Q8H PRN Muscle Spasm 08/1006/17/25 History omeprazole 20 mg capsule,delayed 20 mg PO DAILY PRN gerd 08/16/22 0 06/17/25 History release topiramate 100 mg tablet 100 mg PO BID seizures 08/16/22 History fluoxetine 20 mg capsule 20 mg PO QHS mental health 3 06/17/25 History gabapentin 300 mg capsule 300 mg PO QHS nerve pain 12/28/22 06/17/25 History lisinopril 10 mg tablet 10 mg PO DAILY blood pressure 12/0606/17/25 History ondansetron HCl 4 mg tablet 4 mg PO Q8H PRN nausea 12/28/22 History rimegepant 75 mg disintegrating 75 mg PO DAILY PRN migraine 06/17/25 History tablet (Nurtec ODT) headache semaglutide 0.25 mg or 0.5 mg (2 0.5 mg subcut QWEEK 10/16/2406/17 History mg/3 mL) subcutaneous pen injector (Ozempic) [facility] History Diabetes Fatty liver Gastric reflux BiPAP (biphasic positive airway pressure) dependence Sleep apnea Non-smoker History of stress test History of echocardiogram Cardiology follow-up encounter Abnormal ECG Prolonged Q-T interval on ECG [...] low back, left neck pain Visit Number: 7 Details: Tori is a 45 y/o F here today to f/u with ongoing neck and low back pain. Pt. c/o achiness and mild pain in her neck and upper back. She rates her neck pain 2/10 today. She continues to (more content not included)... Normal [facility] MR/PAT.ANEon 06-15-2025 MR/PAT.[facility] Medical Records Department [address] [place] [address] PAT - Anesthesia 06/15/25 1647 MR#: [id number] Acct: [id number] Name: TORI GRAY Rep #: [id number] : 1980 45 From: Newton Preciado MD PCP: Dr. Ivette Grimes MD Status:PRE [facility] Y Race: C Location: [facility] Pre-Assessment Diagnosis/Proposed Procedure Planned Operative Procedure(s): LEFT SHOULDER ARTHROSCOPY, SUBACROMIAL DECOMPRESSION DEBRIDMENT Anesthesia History Anesthesia History - medical underwriter: Anesthesia History - medical underwriter Hx Hospitalization No 06/10/25 09:08 Any Problems With Anesthesia Yes: N/V 06/10/25 09:08 Cholinesterase deficiency No 06/10/25 09:08 You/Your Family Experience No 06/10/25 09:08 fever (hyperthermia) with Relationship Recent Exposure to Contagious No 03/09/25 09:20 Disease Does patient have nerve No 06/10/25 09:08 stimulator Patient instructed to have device shut off --Does patient have Pacemaker or ICD? When Was Last Pacemaker Check QUESTION #4 FULL TEXT: You/Your Family Experience fever (hyperthermia) with Anesthesia Last Oral Intake Last Oral intake: Last Oral Intake NPO since Meds taken in AM with sips of water? Meds patient instructed to take am of surgery PONV PONV - medical underwriter: PONV - medical underwriter Female Yes 06/10/25 09:08 HX of Motion Sickness No 06/10/25 09:08 HX of N/V After Surgery Yes 06/10/25 09:08 Non-Smoker Yes 06/10/25 09:08 Duration of Surgery greater Yes 06/10/25 09:08 than 60 minutes Number of Risk Factors 4 06/10/25 09:08 PONV Score Severe Risk 06/10/25 09:08 Height Weight Height Weight: Anesthesia: Height Weight Height 5 ft 7 in 05/06/25 10:04 Respiratory Assessment Respiratory Assessment - medical underwriter: Respiratory Tract Infection Hx - medical underwriter Hx Respiratory Tract Infection No 06/10/25 09:08 STOP Sleep Apnea STOP Sleep Apnea - medical underwriter: STOP Sleep Apnea - medical underwriter Hx Hypertension No: LISINOPRIL FOR LIVER 06/10/25 09:08 Hx Sleep Apnea Yes 06/10/25 09:08 CPAP No 06/10/25 09:08 BIPAP Yes 06/10/25 09:08 Do you snore loudly (louder than talking or can be heard Do you often feel tired/ fatigued/ sleepy during daytime? Has anyone observed you stop breathing during sleep? STOP Results Positive 06/10/25 09:08 QUESTION #5 FULL TEXT : Do you snore loudly (louder than talking or can be heard through closed doors)? Tobacco Use History Tobacco Use History - medical underwriter: Tobacco Use History - medical underwriter Tobacco Use Non-smoker 03/09/25 09:20 Smoking Status Never smoker 06/10/25 09:08 Hx Tobacco Use No 06/10/25 09:08 Years Smoking Packs Smoked per Day Smoking Cessation Date was within the last 15 years Hx Smoking Cessation Date Hx Smoking Cessation Counseling Hematologic Medial History Hematologic Hx - medical underwriter: Hematologic Medical Hx - clinical documentation consultant Hx of Blood Transfusion No 06/10/25 09:08 Hx of Transfusion in last 3 No 06/10/25 09:08 Months Date of Last Transfusion (if within last 3 months) Ever experience any problems No 06/10/25 09:08 with transfusion(s)? Specify any problems Hx of Preganancy in last 3 No 06/10/25 09:08 Months Nurse Filling Out Transfusion CPOWERS2 06/10/25 09:08 Questions: Date: 06/10/25 06/10/25 09:08 Time: 09:12 06/10/25 09:08 Patient unable to answer at this time (ie. confused, unrespo /Reproduct ion History /Reproduct ashish History - medical underwriter: /Reproduct ashish Hx- medical underwriter Hx Now No 06/10/25 09:08 Gestational Age (in weeks): EDC: Hx Hx Para Hx Section SAB No 06/10/25 09:08 [facility] Medical History (Updated 06/10/25 @ 09:17 by Pepito Underwood) Diabetes Fatty liver Gastric reflux BiPAP (biphasic positive airway pressure) dependence Sleep apnea Non-smoker History of stress test History of echocardiogram Cardiology follow-up encounter Abnormal ECG Prolonged Q-T interval on ECG [...] cervical region Migraines Acute bronchitis Acute respiratory insuffi (more content not included)... Normal [facility] 12 Lead EKGon 06-10-2025 12 Lead EKG [facility] Cardiovascular Services [address] [place] [address] 12 Lead EKG 06/10/25 1247 MR#: [id number] Acct: [id number] Name: TORI GRAY Rep #: [id number] : 1980 44 From: Vin Montes MD Attending Dr: Dr. Brett Quiroga MD Status: CA E SD Ordering Dr: Woody Choudhary MD Date: 06/10/25 Location: [facility] Sex: F C Admitted: Test Reason : PRE OP Blood Pressure : */* mmHG Vent. Rate : 60 BPM Atrial Rate : 60 BPM P-R Int : 146 ms QRS Dur : 88 ms QT Int : 472 ms P-R-T Axes : 13 58 28 degrees QTcB Int : 472 ms Normal sinus rhythm Low voltage QRS Prolonged QT Abnormal ECG Confirmed by VIN MONTES MD ([id number]), slot editor PRISCILA FERRERA ([id number]) on 06/11/2025 5:54:48 AM Referred By: Brett Quiroga Confirmed By: VIN MONTES MD 06/11/25 0554 Date Vin Montes MD CC: Dr. Woody Choudhary MD; Dr. Brett Quiroga MD; Dr. Ivette Grimes MD Signed Normal [facility] LDL CHOLESTEROL DIRECT (FOR REMOTE [facility] USE)on 06-10-2025 [facility] LDL, Directon 06-10-2025 Cholesterol in LDL [Mass/Vol] 96 mg/dL Normal 0-99 [facility] Comment on above: Result Comment: Perf ormed at: - [facility] [address] [id number] Manufacturing Technology Analyst: José Antonio Aldana PhD, Phone: [phone] Performed By: #### L 3300.4490, L599.9985 ####[facility] [address] [place], [place], [id number] COMMENT TNP Normal . [facility] Comment on above: Performed By: #### L 3300.4490, L501.9985 ####[facility] [address] [place], [place], [id number] CNPNon 06-09-2025 [facility] TORI GRAY ([id number]) 1980 F Date Time Provider Department 06/09/25 IVETTE GRIMES [facility] During your visit today, we recorded the following information about you: Nirmala Storey LPN 06/09/2025 10:21 AM Signed HgbA1C from [facility] 7.4 Ivette Grimes MD 06/09/2025 10:49 AM Signed Lets increase the ozempic to 2 mg a day. Call sugars in two weeks. Watch the diet. Nirmala Storey LPN 06/09/2025 3:25 PM Addendum Flavorvan[employer] message sent to the patient. Juliana Murphy MA 06/10/2025 2:17 PM Signed LDL Direct scanned to chart Allergies As of Date: 06/09/2025 Noted Allergy Reaction FARXIGA (DAPAGLIFLOZIN) 08/05/2024 8 - GI Upset LIDOCAINE 12/24/2019 4 - Hives METFORMIN 08/05/2024 8 - GI Upset STEROIDS (BETAMETHASONE DIPROPION* 2 4 - Hives Date Reviewed: 06/07/2025 Reviewed by: Casi Encinas - Fully Assessed Reason for Visit: Results [95] Visit Diagnosis:Type 2 diabetes mellitus with microalbuminuria, with long-term current use of insulin ([facility]) [E11.29, R80.9, Z79.4] Order(s):HBA1C (OUTSIDE) [8155089] Order #: [id number] semaglutide (OZEMPIC) 2 mg/dose (8 mg/3 mL) pen injectorInject 2 mg subcutaneously one time a week.Disp: 3 mLRfl: 5 LDL CHOLESTEROL DIRECT (FOR REMOTE [facility] USE) [SQRLDL] Order #: [id number] Prescriptions as of 06/18/2025 - omeprazole (PRILOSEC) 20 mg capsule Take 1 capsule by mouth daily before breakfast. 1/2 hr before meal. - ondansetron (ZOFRAN) 4 mg tablet Take 1 tablet by mouth every 8 hours as needed for nausea/vomiting. - semaglutide (OZEMPIC) 2 mg/dose (8 mg/3 mL) pen injector Inject 2 mg subcutaneously one time a week. - FLUoxetine (PROZAC) 20 mg capsule Take 1 capsule by mouth once daily. - tiZANidine (ZANAFLEX) 4 mg tablet Take 1 tablet by mouth every 8 hours as needed (muscle spasms). - gabapentin (NEURONTIN) 300 mg capsule Take 1 capsule by mouth once daily for 180 days. - topiramate (TOPAMAX) 100 mg tablet Take 1 tablet by mouth two times a day. - albuterol HFA (VENTOLIN HFA) 90 mcg/actuation inhaler Inhale 2 Puffs as instructed every 4 hours as needed for wheezing/shortness of breath. - lisinopril (ZESTRIL) 10 mg tablet Take [...] tablet by mouth once daily. - Ipratropium Milton (ATROVENT) 21 mcg (0.03 %) nasal spray Use 2 Sprays in the nose every 12 hours. - MAGNESIUM ORAL Take by mouth. - meclizine (ANTIVERT) 25 mg tab Take 25 mg by mouth once daily. Takes two tabs in am - BIPAP - levonorgestrel (KYLEENA) 17.5 mcg/24 hrs (5 yrs) 19.5 mg IUD 1 Each by INTRAUTERINE route as directed. - blood sugar diagnostic (BLOOD GLUCOSE TEST) test strip Test blood sugar(s) 1 times daily. Dx: Type 2 DM - Controlled E11.9 Insulin: Yes - Lancets lancets Test blood sugar(s) 1 times daily. Dx: Type 2 DM - Controlled E11.9 Insulin: No - Wboxyoyo-Yf-Epl-Fe- FA tab Take 1 tablet by mouth once daily. Meds Comments as of 03/01/2019: Percocet March 01, 2019 Stephanie Suresh RN Problem List As Of Date 06/09/2025 Noted Resolved SUPERVIS NORMAL 1ST PREG [Z34.00] [...] 01/23/2010 Routine general medical examination at a [facility]*01/23/2010 12/06/2012 Class: Chronic Routine gynecological examination [Z01.419] 01/23/2010 02/22/2014 Class: Chronic Morbid obesity (HCC) [E66.01] 01/23/2010 06/07/2025 Lumbar Disc Disorder [M51.9] 02/16/2010 Routine general medical examination at [facility]*12/06/2012 02/22/2014 Anxiety [F41.9] 06/07/2014 Type 2 diabetes mellitus with microalbuminuria,*0 07/04/2018 Fatty liver [K76.0] 07/21/2018 08/05/2024 LETITIA (obstructive sleep apnea) [G47.33] 07/21/2018 Microalbuminuria [R80.9] 09/30/2018 09/04/2022 Obesity, Class III, BMI >= 40 [E66.813] 11/26/2019 09/04/2022 Prolonged Q-T interval on ECG [R94.31] 03/31/2020 Calculus of kidney [N20.0] 09/04/2022 Chest pain [R07.9] 09/04/2022 09/04/2022 Contusion of knee [S80.00XA] 09/04/2022 09/04/2022 Essential (primary) hypertension [I10] 10/ (more content not included)... Normal [facility] Cholesterol in LDL Direct as say [Mass/Vol]Ordered By: Ivette Grimes on 06-09-2025 Cholesterol in LDL [Mass/Vol] 96 mg/dL 0-99 [facility] Comment on above: Performed at: [address] [id number] Director: José Antonio Aldana PhD, Phone: [phone] HBA1C (OUTSIDE)on 06-09-2025 [facility] Hemoglobin A1con 06-09-2025 HbA1c (Bld) [Mass fraction] 7.4 % High <=5.6 [facility] Comment on above: Result Comment: Norm al < 5.7 % Prediabetic 5.7 - 6.4 % Diabetic >or= 6.5 % Please note range changes. Performed By: #### L 3300.4490, L501.9985 ####[facility] [address] [place], [address] Hemoglobin A1c percentageOrd ered By: Ivette Grimes on 06-09-2025 HbA1c (Bld) [Mass fraction] 7.4 % [facility] Comment on above: Normal < 5.7 % Predi abetic 5.7 - 6.4 % Diabetic >or= 6.5 % Please note range changes. Laboratory - Miscellaneous t estsOrdered By: Ivette Grimes on 06-09-2025 Service comment (Unsp spec) [Interp] TNP [facility] Comment on above: Test not performed CNOVon 06-07-2025 [facility] ---- TORI GRAY ([id number]) 1980 F Date Time Provider Department 06/07/25 6:40 PM IVETTE GRIMES [facility] During your visit today, we recorded the following information about you: Pulse Blood pressure Weight 78/minute 132/80 128.2 kg Ivette Grimes MD 06/07/2025 7:01 PM Signed - Have a hemoglobin A1c (average blood [...] with Dr. Quiroga on June 23 at [facility]. - Keep your neurology appointment on August 04 for Botox treatment of migraines. - Attend your gynecology visit with Dr. Camacho on July 08 for your Pap smear. - Schedule your mammogram at the hospital across the street; the order has been sent there. - Return in 6 months for your routine checkup; contact the office sooner if any new concerns arise. Ivette Grimes MD 06/07/2025 7:06 PM Signed Tori Gray is a 44-year-old female with [...] for June [address] Quiroga at [facility]. - Follow-up appointment with Dr. Camacho for [...] 1 tablet by mouth once daily. Ipratropium Milton (ATROVENT) 21 mcg (0.03 %) nasal spray [...] 1 Each by INTRAUTERINE route as directed. Ujrygrld-Yc-Zqv-Fe- FA tab Take 1 tablet by mouth [...] Insulin: Yes Lancets lancets Test blood sugar(s) (more content not included)... Normal [facility] Absolute lymphocyte countOrd ered By: HEALTH ASSESSMENT on 06-05-2025 Lymphocytes Auto (Unsp spec) [#/Vol] 2.43 10*3/uL 0.83-4.51 [facility] Absolute neutrophil countOrd ered By: HEALTH ASSESSMENT on 06-05-2025 Neutrophils (Bld) [#/Vol] 6.3 10*3/uL 2.0-7.7 [facility] Absolute nucleated red blood cell countOrdered By: HEALTH ASSESSMENT on 06-05-2025 Nucleated RBC (Bld) [#/Vol] 0.00 10*3/uL 0-5 [facility] Anion gap in Serum or Plasma Ordered By: HEALTH ASSESSMENT on 06-05-2025 Anion gap [Moles/Vol] 14 mmol/L 5-15 [facility] BUN/creatinine ratioOrdered By: HEALTH ASSESSMENT on 06-05-2025 Urea nitrogen/Creatinine [Mass ratio] 10.6 mg/mg 10-20 [facility] Bilirubin Test strip Ql (U)O rdered By: HEALTH ASSESSMENT on 06-05-2025 Bilirubin Ql (U) Negative Negative [facility] Bilirubin directOrdered By: HEALTH ASSESSMENT on 06-05-2025 Bilirubin.direct [Mass/Vol] 0.20 mg/dL 0.00-0.30 [facility] Bilirubin, totalOrdered By: HEALTH ASSESSMENT on 06-05-2025 Bilirubin [Mass/Vol] 0.51 mg/dL 0.00-1.30 [facility] CBC, Employeeon 06-05-2025 Absolute Lymph 2.43 X10 3/uL Normal 0.83-4.51 [facility] Comment on above: Performed By: #### L 100.0200, L400.0100, L500.2900 ####[facility] [address] [place], [address] Absolute Neut 6.3 X10 3/uL Normal 2.0-7.7 [facility] Comment on above: Performed By: #### L 100.0200, L400.0100, L500.2900 ####[facility] [address] [place], [address] Basophils/100 WBC (Bld) 0.9 % Normal 0-1 [facility] Comment on above: Performed By: #### L 100.0200, L400.0100, L500.2900 ####[facility] [address] [place], [address] Eosinophils/100 WBC (Bld) 1.8 % Normal 0-5 [facility] Comment on above: Performed By: #### L 100.0200, L400.0100, L500.2900 ####[facility] [address] [place], [address] Erythrocyte distribution width (RBC) [Ratio] 14.5 % Normal 11.6-14.6 [facility] Comment on above: Performed By: #### L 100.0200, L400.0100, L500.2900 ####[facility] [address] [place], [address] Hematocrit (Bld) [Volume fraction] 39.2 % Normal 37-47 [facility] Comment on above: Performed By: #### L 100.0200, L400.0100, L500.2900 ####[facility] [address] [place], [address] Hemoglobin (Bld) [Mass/Vol] 13.5 g/dL Normal 12.0-15.0 [facility] Comment on above: Performed By: #### L 100.0200, L400.0100, L500.2900 ####[facility] [address] [place], [address] Lymphocytes/100 WBC (Bld) 25.5 % Normal 19-41 [facility] Comment on above: Performed By: #### L 100.0200, L400.0100, L500.2900 ####[facility] [address] [place], [address] MCH (RBC) [Entitic mass] 32.4 pg High 27.0-32.0 [facility] Comment on above: Performed By: #### L 100.0200, L400.0100, L500.2900 ####[facility] [address] [place], [address] MCHC (RBC) [Mass/Vol] 34.4 g/dL Normal 32-36 [facility] Comment on above: Performed By: #### L 100.0200, L400.0100, L500.2900 ####[facility] [address] [place], [address] MCV (RBC) [Entitic vol] 94.0 fL Normal 81-99 [facility] Comment on above: Performed By: #### L 100.0200, L400.0100, L500.2900 ####[facility] [address] [place], [address] Monocytes/100 WBC (Bld) 3.6 % Normal 0-10 [facility] Comment on above: Performed By: #### L 100.0200, L400.0100, L500.2900 ####[facility] [address] [place], [address] Neutrophils/100 WBC (Bld) 66.2 % Normal 47-70 [facility] Comment on above: Performed By: #### L 100.0200, L400.0100, L500.2900 ####[facility] [address] [place], [address] NRBC # 0.00 10 3/uL Normal 0-5 [facility] Comment on above: Performed By: #### L 100.0200, L400.0100, L500.2900 ####[facility] [address] [place], [address] Nucleated RBC (Bld) [#/Vol] 0 10*3/uL Normal 0-5 [facility] Comment on above: Performed By: #### L 100.0200, L400.0100, L500.2900 ####[facility] [address] [place], [address] Platelet mean volume (Bld) [Entitic vol] 9.6 fL Normal 6.2-12.0 [facility] Comment on above: Performed By: #### L 100.0200, L400.0100, L500.2900 ####[facility] [address] [place], [address] Platelets (Bld) [#/Vol] 192 10*3/uL Normal 150-450 [facility] Comment on above: Performed By: #### L 100.0200, L400.0100, L500.2900 ####[facility] [address] [place], [address] RBC (Bld) [#/Vol] 4.17 10*6/uL Low 4.2-5.4 [facility] Comment on above: Performed By: #### L 100.0200, L400.0100, L500.2900 ####[facility] [address] [place], [address] RDW SD 49.7 fl High 35.1-43.9 [facility] Comment on above: Performed By: #### L 100.0200, L400.0100, L500.2900 ####[facility] [address] [place], [address] WBC (Bld) [#/Vol] 9.5 10*3/uL Normal 4.4-11.0 [facility] Comment on above: Performed By: #### L 100.0200, L400.0100, L500.2900 ####[facility] [address] [place], [address] Calculated very low density lipoprotein (VLDL) cholesterol measurementOrdered By: HEALTH ASSESSMENT on 06-05-2025 Calculated very low density lipoprotein (VLDL) cholesterol measurement 62 mg/dL High 5-40 [facility] Carbon dioxide, total [Moles /volume] in Central venous bloodOrdered By: HEALTH ASSESSMENT on 06-05-2025 CO2 [Moles/Vol] 17.5 mmol/L Low 21.0-32.0 [facility] Chloride assayOrdered By: HE ALTH ASSESSMENT on 06-05-2025 Chloride [Moles/Vol] 105 mmol/L 98-108 [facility] Employee Profileon LDH 188 U/L Normal 84-246 [facility] Comment on above: Performed By: #### L 100.0200, L400.0100, L500.2900 ####[facility] [address] [place], [address] Phosphate [Mass/Vol] 2.2 mg/dL Low 2.7-4.5 [facility] Comment on above: Performed By: #### L 100.0200, L400.0100, L500.2900 ####[facility] [address] [place], [address] URIC 6.9 mg/dL High 2.6-6.0 [facility] Comment on above: Result Comment: The drugs N-Acetylcysteine and Metamizole may falsely depress this assay. Performed By: #### L 100.0200, L400.0100, L500.2900 ####[facility] [address] [place], [address] Erythrocyte distribution wid th ratioOrdered By: HEALTH ASSESSMENT on 06-05-2025 Erythrocyte distribution width (RBC) [Ratio] 14.5 % 11.6-14.6 [facility] Erythrocyte distribution wid th standard deviationOrdered By: HEALTH ASSESSMENT on 06-05-2025 Erythrocyte distribution width (RBC) [Ratio] 49.7 fl High 35.1-43.9 [facility] Glomerular filtration rate ( GFR) estimation/1.73 sq m using serum, plasma, or whole bOrdered By: HEALTH ASSESSMENT on 06-05-2025 GFR/1.73 sq M.predicted among non-blacks MDRD (S/P/Bld) [Vol rate/Area] 94 mL/min/{1.73_m2} >60 [facility] Comment on above: mL/min/1.73m2 CKD-EP I Creatinine Equation (2020) Hematocrit Auto (Bld) [Volum e fraction]Ordered By: HEALTH ASSESSMENT on 06-05-2025 Hematocrit (Bld) [Volume fraction] 39.2 % 37-47 [facility] Hemoglobin measurementOrdere d By: HEALTH ASSESSMENT on 06-05-2025 Hemoglobin (Bld) [Mass/Vol] 13.5 g/dL 12.0-15.0 [facility] Ketones Test strip Ql (U)Ord ered By: HEALTH ASSESSMENT on 06-05-2025 Ketones Ql (U) Negative Negative [facility] LDL calc ser/plasOrdered By: HEALTH ASSESSMENT on 06-05-2025 Cholesterol in LDL [Mass/Vol] 92 mg/dL [facility] Comment on above: Uzrytzaccw=460-172 m g/dL & Higher Gaux=791 mg/dL or greaterFriedwald Equation for LDL-C Laboratory - Chemistry and C hemistry - challengeOrdered By: HEALTH ASSESSMENT on 06-05-2025 AST [Catalytic activity/Vol] 41 U/L High <32 [facility] Lactate dehydrogenase (LDH) measurementOrdered By: HEALTH ASSESSMENT on 06-05-2025 LDH [Catalytic activity/Vol] 188 U/L 84-246 [facility] MCV (mean corpuscular volume ) determinationOrdered By: HEALTH ASSESSMENT on 06-05-2025 MCV (RBC) [Entitic vol] 94.0 fL 81-99 [facility] Mean corpuscular hemoglobin (MCH) determinationOrdered By: HEALTH ASSESSMENT on 06-05-2025 MCH (RBC) [Entitic mass] 32.4 pg High 27.0-32.0 [facility] Mean corpuscular hemoglobin concentration (MCHC) determinationOrdered By: HEALTH ASSESSMENT on 06-05-2025 MCHC (RBC) [Mass/Vol] 34.4 g/dL 32-36 [facility] Mean platelet volume determi nationOrdered By: HEALTH ASSESSMENT on 06-05-2025 Platelet mean volume (Bld) [Entitic vol] 9.6 fL 6.2-12.0 [facility] Neutrophil percentageOrdered By: HEALTH ASSESSMENT on 06-05-2025 Neutrophils/100 WBC (Bld) 66.2 % 47-70 [facility] Nitrite Test strip Ql (U)Ord ered By: HEALTH ASSESSMENT on 06-05-2025 Nitrite Ql (U) Negative Negative [facility] Nucleated red blood cell per centageOrdered By: HEALTH ASSESSMENT on 06-05-2025 Nucleated RBC/100 WBC (Bld) [Ratio] 0 % 0-5 [facility] Platelet countOrdered By: HE ALTH ASSESSMENT on 06-05-2025 Platelets (Bld) [#/Vol] 192 10*3/uL 150-450 [facility] Potassium measurement (mass/ volume)Ordered By: HEALTH ASSESSMENT on 06-05-2025 Potassium (Unsp spec) [Mass/Vol] 4.0 mmol/L 3.3-5.1 [facility] Protein Test strip Ql (U)Ord ered By: HEALTH ASSESSMENT on 06-05-2025 Protein Ql (U) 100 mg/dl High Negative [facility] RBC Auto (Bld) [#/Vol]Ordere d By: HEALTH ASSESSMENT on 06-05-2025 RBC (Bld) [#/Vol] 4.17 10*6/uL Low 4.2-5.4 [facility] Screening total cholesterol/ high density lipoprotein (HDL) cholesterol ratioOrdered By: HEALTH ASSESSMENT on 06-05-2025 Cholesterol.total/Choles terol in HDL [Mass ratio] 5.63 {ratio} [facility] Serum creatinine measurement (mass/volume)Ordered By: HEALTH ASSESSMENT on 06-05-2025 Creatinine [Mass/Vol] 0.80 mg/dL 0.70-1.20 [facility] Serum globulin measurementOr dered By: HEALTH ASSESSMENT on 06-05-2025 Globulin (S) [Mass/Vol] 3.3 g/dL 2.2-4.2 [facility] Serum glucose measurement (m ass/volume)Ordered By: HEALTH ASSESSMENT on 06-05-2025 Glucose [Mass/Vol] 210 mg/dL High 70-99 [facility] Serum or plasma alanine arizmendi otransferase (ALT) measurementOrdered By: HEALTH ASSESSMENT on 06-05-2025 ALT [Catalytic activity/Vol] 43 U/L High <35 [facility] Serum or plasma albumin sharron urement (mass/volume)Ordered By: HEALTH ASSESSMENT on 06-05-2025 Albumin [Mass/Vol] 4.2 g/dL 3.5-5.0 [facility] Serum or plasma albumin/glob ulin mass ratioOrdered By: HEALTH ASSESSMENT on 06-05-2025 Albumin/Globulin [Mass ratio] 1.3 {ratio} 0.9-2.4 [facility] Serum or plasma alkaline toyin sphatase measurementOrdered By: HEALTH ASSESSMENT on 06-05-2025 ALP [Catalytic activity/Vol] 84 U/L 35-104 [facility] Serum or plasma calcium hsarron urement (mass/volume)Ordered By: HEALTH ASSESSMENT on 06-05-2025 Calcium [Mass/Vol] 8.8 mg/dL 7.6-11.0 [facility] Serum or plasma cholesterol in HDL measurement (mass/volume)Ordered By: HEALTH ASSESSMENT on 06-05-2025 Cholesterol in HDL [Mass/Vol] 33 mg/dL Low >40 [facility] Comment on above: National Cholesterol Education Program (NCEP) guidelines:<40 mg/dL: Low HDL-cholesterol (major risk factor for CHD)>= 60 mg/dL: High HDL-cholesterol (negative risk factor for CHD)HDL-cholesterol is affected by a number of factors, e.g. smoking, exercise, hormones, sex and age. Serum or plasma cholesterol measurement (mass/volume)Ordered By: HEALTH ASSESSMENT on 06-05-2025 Cholesterol [Mass/Vol] 187 mg/dL <201 [facility] Comment on above: Cholesterol level, D esirable <200 mg/dLBorderline high cholesterol 200-239 mg/dLHigh cholesterol >=240 mg/dLRecommendations of the NCEP Adult Treatment Panel for the following risk-cutoff thresholds for the [place] population. Serum or plasma urea nitroge n measurement (mass/volume)Ordered By: HEALTH ASSESSMENT on 06-05-2025 Urea nitrogen [Mass/Vol] 9 mg/dL 4-19 [facility] Serum or plasma uric acid me asurement (mass/volume)Ordered By: HEALTH ASSESSMENT on 06-05-2025 Urate [Mass/Vol] 6.9 mg/dL High 2.6-6.0 [facility] Comment on above: The drugs N-Acetylcy steine and Metamizole may falsely depress this assay. Sodium levelOrdered By: HEAL ASSESSMENT on 06-05-2025 Sodium [Moles/Vol] 137 mmol/L 133-145 [facility] Total proteinOrdered By: [facility] ASSESSMENT on 06-05-2025 Protein [Mass/Vol] 7.5 g/dL 5.9-8.4 [facility] Triglycerides measurementOrd ered By: HEALTH ASSESSMENT on 06-05-2025 Triglyceride [Mass/Vol] 310 mg/dL High <199 [facility] Comment on above: The drugs N-Acetylcy steine and Metamizole may falsely depress this assay. Normal range: <150 mg/dLBorderline High: 150-199 mg/dLHigh: 200-499 mg/dLVery High: >500 mg/dL Urinalysis, Employeeon 06-05 BILIRUBIN URINE Negative Normal Negative [facility] Comment on above: Order Comment: Urine , Random Performed By: #### L 100.0200, L400.0100, L500.2900 ####[facility] [address] [place], [address] Clarity (U) Sl. Cloudy Normal Clear [facility] Comment on above: Order Comment: Urine , Random Performed By: #### L 100.0200, L400.0100, L500.2900 ####[facility] [address] [place], [address] Color (U) Yellow Normal Yellow [facility] Comment on above: Order Comment: Urine , Random Performed By: #### L 100.0200, L400.0100, L500.2900 ####[facility] [address] [place], [address] GLUCOSE, UR Normal Normal Normal [facility] Comment on above: Order Comment: Urine , Random Performed By: #### L 100.0200, L400.0100, L500.2900 ####[facility] [address] [place], [address] KETONE UR Negative Normal Negative [facility] Comment on above: Order Comment: Urine , Random Performed By: #### L 100.0200, L400.0100, L500.2900 ####[facility] [address] [place], [address] LEUK ESTERASE 500 /ul Abnormal Negative [facility] Comment on above: Order Comment: Urine , Random Performed By: #### L 100.0200, L400.0100, L500.2900 ####[facility] [address] [place], [address] Nitrite Ql (U) Negative Normal Negative [facility] Comment on above: Order Comment: Urine , Random Performed By: #### L 100.0200, L400.0100, L500.2900 ####[facility] [address] [place], [address] OCCULT BLOOD-UR 25 /ul Abnormal Negative [facility] Comment on above: Order Comment: Urine , Random Performed By: #### L 100.0200, L400.0100, L500.2900 ####[facility] [address], [address] pH UR 6.0 Normal 5.0 - 8.0 [facility] Comment on above: Order Comment: Urine , Random Performed By: #### L 100.0200, L400.0100, L500.2900 ####[facility] [address] [place], [address] PROT DIPSTX 100 mg/dl Abnormal Negative [facility] Comment on above: Order Comment: Urine , Random Performed By: #### L 100.0200, L400.0100, L500.2900 ####[facility] [address], [address] SP.GR. DIPSTX 1.015 Normal 1.002-1.030 [facility] Comment on above: Order Comment: Urine , Random Performed By: #### L 100.0200, L400.0100, L500.2900 ####[facility] [address] [place], [address] UROBILI Normal Normal Normal [facility] Comment on above: Order Comment: Urine , Random Performed By: #### L 100.0200, L400.0100, L500.2900 ####[facility] [address] [place], [address] Urine clarityOrdered By: [facility] ASSESSMENT on 06-05-2025 Clarity (U) Sl. Cloudy Clear [facility] Urine color determinationOrd ered By: HEALTH ASSESSMENT on 06-05-2025 Color (U) Yellow Yellow [facility] Urine glucose detectionOrder ed By: HEALTH ASSESSMENT on 06-05-2025 Glucose Ql (U) Normal mg/dl Normal [facility] Urine leukocyte esterase det ection by dipstickOrdered By: HEALTH ASSESSMENT on 06-05-2025 Leukocyte esterase Test strip Ql (U) 500 /ul High Negative [facility] Urine pHOrdered By: HEALTH A SSESSMENT on 06-05-2025 pH (U) 6.0 [pH] 5.0 - 8.0 [facility] Urine specific gravity measu rementOrdered By: HEALTH ASSESSMENT on 06-05-2025 Specific gravity (U) [Rel density] 1.015 1.002-1.030 [facility] Urine urobilinogen measureme ntOrdered By: HEALTH ASSESSMENT on 06-05-2025 Urobilinogen Ql (U) Normal mg/dl Normal [facility] White blood cell (WBC) count Ordered By: HEALTH ASSESSMENT on 06-05-2025 WBC (Bld) [#/Vol] 9.5 10*3/uL 4.4-11.0 [facility] Chiropractic Reporton 2024 Chiropractic Report [facility] [place] [facility] [place], [place] [address] OFFICE VISIT Date of Service: 06/01/25 MR#: [id number] Acct: [id number] Name: TORI GRAY Rep #: [id number] : 1980 Provider: CONCEPCIÓN Montgomery Age/Sex: 44/F [place] [facility] Status: Signed Intake Vital Signs 03/22/25 09:08 [...] 7 days #30 ea 06/01/25 Rx packet PFSH Medical History Abnormal ECG [...] left t (more content not included)... Normal [facility] Orthopedic Visit Reporton Orthopedic Visit Report [facility] [address] [place] [address] [address] [place] [address] OFFICE VISIT Date of Service: 05/06/25 MR#: [id number] Acct: [id number] Name: TORI GRAY Rep #: [id number] : 1980 Provider: Dr. Brett kessler MD Age/Sex: 44/F Location: [facility] Status: Signed Intake Vital Signs 03/22/25 09:08 [...] by me, (more content not included)... Normal [facility] Chiropractic Reporton 2024 Chiropractic Report [facility] [address] [place] [address] OFFICE VISIT Date of Service: 04/21/25 MR#: [id number] Acct: [id number] Name: TORI RGAY Rep #: [id number] : 1980 Provider: CONCEPCIÓN Montgomery Age/Sex: 44/F Location: [facility] Status: Signed Intake Vital Signs 03/22/25 09:08 [...] appointment w (more content not included)... Normal [facility] Magnetic resonance imaging r eportOrdered By: Salazar Tyson on 04-19-2025 Study report [facility] Imaging Services [address] [place], [place] [id number] Upper Ext Joint Only(Routine) MR#: [id number] Acct: [id number] Name: TORI GRAY Rep #: [id number] : 1980 F 44 From: Moncho Tyson MD PCP: Dr. Ivette Grimes MD Status: GER[place] CURTIS Study:Upper Ext Joint Only(Routine) Date of Exam: 04/17/25 Exam# [id number] Ordering Dr: Brett Quiroga MD PROCEDURE: UPPER [...] subacromial subdeltoid bursa, with bursitis. Reading Location: [facility] CC: Dr. Brett Quiroga MD; Dr. Ivette Grimes MD ~ Supervisor [facility]: Signed [facility] Upper Ext Joint Only(Routine )on 04-17-2025 Upper Ext Joint Only(Routine) [facility] Imaging Services [address] [place] [id number] Upper Ext Joint Only(Routine) MR#: [id number] Acct: [id number] Name: TORI GRAY Rep #: [id number] : 1980 F 44 From: Salazar Tyson MD PCP: Dr. Ivette Grimes MD Status: REG CLI Study: Upper Ext Joint Only(Routine) Date of Exam: 0 04/17/25 Exam# [id number] Ordering Dr: Brett Quiroga MD PROCEDURE: UPPER [...] subacromial subdeltoid bursa, with bursitis. Reading Location: [facility] CC: Dr. Brett Quiroga MD; Dr. Ivette Grimes MD Supervisor [facility]: Signed [facility] GRAYTORI ([id number]) 1980 F Date Time Provider Department 04/07/25 IVETTE GRIMESPWS During your visit today, we recorded the [...] tablet by mouth once daily. - Ipratropium Milton (ATROVENT) 21 mcg (0.03 %) nasal spray [...] Each by INTRAUTERINE route as directed. - [place]-3 Fatty Acids (FISH OIL) 500 mg cap Take 1 capsule by mouth once daily. - blood sugar diagnostic (BLOOD GLUCOSE TEST) test strip Test blood sugar(s) 1 times daily. Dx: Type 2 DM - Controlled E11.9 Insulin: Yes - Lancets lancets Test blood sugar(s) 1 times daily. Dx: Type 2 DM - Controlled E11.9 Insulin: No - Tjdposia-Du-Ssg-Fe- FA tab Take 1 tablet by mouth [...] 05/06/2009 01/23/2010 Routine general medical examination at [facility]*01/23/2010 12/06/2012 Class: Chronic Routine gynecological examination [Z01.419] 01/23/2010 02/22/2014 Class: Chronic Morbid Obesity [E66.01] 01/23/2010 Lumbar Disc Disorder [M51.9] 02/16/2010 Routine general medical examination at [facility]*12/06/2012 02/22/2014 Anxiety [F41.9] 06/07/2014 Type 2 [...] 09/04/2022 09/04/2022 (more content not included)... Normal [facility] Chiropractic Reporton 2024 Chiropractic Report [facility] [address] [place] [address] OFFICE VISIT Date of Service: 04/05/25 MR#: [id number] Acct: [id number] Name: TORI GRAY Rep #: [id number] : 1980 Provider: CONCEPCIÓN Montgomery Age/Sex: 44/F [place] [facility] Status: Signed Intake Vital Signs 03/22/25 09:08 [...] Quiroga last week (more content not included)... [facility] 04-01-2025 [facility] ---- TORI GRAY ([id number]) 1980 F Date Time Provider Department 04/01/25 AMANDA ARTEAGA [facility] During your visit today, we recorded the following information about you: Nakia Caraballo RN 04/01/2025 12:47 PM Signed Botox approved until 11/03/25. Patient and scheduling made aware. She is a patient of [facility] but due to her being out on [...] tablet by mouth once daily. - Ipratropium Milton (ATROVENT) 21 mcg (0.03 %) nasal spray [...] Each by INTRAUTERINE route as directed. - [place]-3 Fatty Acids (FISH OIL) 500 mg cap Take 1 capsule by mouth once daily. - blood sugar diagnostic (BLOOD GLUCOSE TEST) test strip Test blood sugar(s) 1 times daily. Dx: Type 2 DM - Controlled E11.9 Insulin: Yes - Lancets lancets Test blood sugar(s) 1 times daily. Dx: Type 2 DM - Controlled E11.9 Insulin: No - Uflfhhgo-Bl-Uhi-Fe- FA tab Take 1 tablet by mouth [...] 05/06/2009 01/23/2010 Routine general medical examination at [facility]*01/23/2010 12/06/2012 Class: Chronic Routine gynecological examination [Z01.419] 01/23/2010 02/22/2014 Class: Chronic Morbid Obesity [E66.01] 01/23/2010 Lumbar Disc Disorder [M51.9] 02/16/2010 Routine general medical examination at [facility]*12/06/2012 02/22/2014 Anxiety [F41.9] 06/07/2014 Type 2 [...] mellitus [Z86.39] (more content not included)... Normal [facility] Chiropractic Reporton 2024 Chiropractic Report [facility] [address] [place] [address] OFFICE VISIT Date of Service: 03/22/25 MR#: [id number] Acct: [id number] Name: TORI GRAY Rep #: [id number] : 1980 Provider: CONCEPCIÓN Montgomery Age/Sex: 44/F [facility] Status: Signed Intake Vital Signs 03/09/25 09:20 [...] 7 days #30 ea 03/22/25 Rx packet [facility] Medical History Abnormal ECG Prolonged [...] an a (more content not included)... Normal [facility] Orthopedic Visit Reporton Orthopedic Visit Report [facility] [address] [place] [address] OFFICE VISIT Date of Service: 03/22/25 MR#: [id number] Acct: [id number] Name: TORI GRAY Rep #: [id number] : 1980 Provider: Dr. Brett kessler MD Age/Sex: 44/F Location: [facility] Status: Signed Intake Vital Signs 11/11/24 05:55 [...] you fallen in the past year?: Yes [facility] Abnormal ECG Prolonged Q-T [...] me, Dr. West (more content not included)... [facility] 03-19-2025 [facility] Telephone ([facility]) ---- TORI GRAY ([id number]) 1980 F Date Time Provider Department 03/19/25 AMANDA ARTEAGA [facility] During your visit today, we recorded [...] tablet by mouth once daily. - Ipratropium Milton (ATROVENT) 21 mcg (0.03 %) nasal spray [...] Each by INTRAUTERINE route as directed. - [place]-3 Fatty Acids (FISH OIL) 500 mg cap Take 1 capsule by mouth once daily. - blood sugar diagnostic (BLOOD GLUCOSE TEST) test strip Test blood sugar(s) 1 times daily. Dx: Type 2 DM - Controlled E11.9 Insulin: Yes - Lancets lancets Test blood sugar(s) 1 times daily. Dx: Type 2 DM - Controlled E11.9 Insulin: No - Akxfvcgd-Uu-Vhi-Fe- FA tab Take 1 tablet by mouth [...] 05/06/2009 01/23/2010 Routine general medical examination at [facility]*01/23/2010 12/06/2012 Class: Chronic Routine gynecological examination [Z01.419] 01/23/2010 02/22/2014 Class: Chronic Morbid Obesity [E66.01] 01/23/2010 Lumbar Disc Disorder [M51.9] 02/16/2010 [facility] hospital*12/06/2012 02/22/2014 Anxiety [F41.9] 06/07/2014 Type 2 [...] 09/04/2022 11 (more content not included)... Normal [facility] Shoulder min 2 Viewson 03-11 Shoulder min 2 Views [facility] Imaging Services [address] [place] [address] Shoulder min 2 Views MR#: [id number] Acct: [id number] Name: TORI GRAY Rep #: [id number] : 1980 F 44 From: Jackson Laureano i, MD PCP: Dr. Ivette Grimes MD Status: REG CLI Study: Shoulder min 2 Views Date of Exam: 03/11/25 Exam# [id number] Ordering Dr: Brett Quiroga MD PROCEDURE: SHOULDER [...] Brett Quiroga MD; Dr. Ivette Grimes MD Supervisor [facility]: Signed Normal [facility] Chiropractic Reporton 2024 Chiropractic Report [facility] [address] [place] [id number] OFFICE VISIT Date of Service: 03/09/25 MR#: [id number] Acct: [id number] Name: GRAYTORI ELIAS Rep #: [id number] : 1980 Provider: CONCEPCIÓN Mccarty Do ssi Age/Sex: 44/F Location: [facility] Status: Signed Intake Vital Signs 11/11/24 05:55 [...] 7 days #30 ea 03/09/25 Rx packet [facility] Medical History Abnormal ECG Prolonged [...] under her sh (more content not included)... Normal [facility] 03-04-2025 [facility] Telephone (NEUSTF) ---- TORI GRAY ([id number]) 1980 F Date Time Provider Department 03/04/25 [...] tablet by mouth once daily. - Ipratropium Milton (ATROVENT) 21 mcg (0.03 %) nasal spray [...] Each by INTRAUTERINE route as directed. - Yakima-3 Fatty Acids (FISH OIL) 500 mg cap Take 1 capsule by mouth once daily. - blood sugar diagnostic (BLOOD GLUCOSE TEST) test strip Test blood sugar(s) 1 times daily. Dx: Type 2 DM - Controlled E11.9 Insulin: Yes - Lancets lancets Test blood sugar(s) 1 times daily. Dx: Type 2 DM - Controlled E11.9 Insulin: No - Ajmhwfce-Ie-Ajn-Fe- FA tab Take 1 tablet by mouth [...] 01/23/2010 Routine general medical examination at a [facility]*01/23/2010 12/06/2012 Class: Chronic Routine gynecological examination [Z01.419] 01/23/2010 02/22/2014 Class: Chronic Morbid Obesity [E66.01] 01/23/2010 Lumbar Disc Disorder [M51.9] 02/16/2010 Routine general medical examination at a [facility]*12/06/2012 02/22/2014 Anxiety [F41.9] 06/07/2014 Type [...] headache [G43. (more content not included)... Normal [facility] CNPNon 02-24-2025 GABRIELAN Telephone (HOMERO) ---- TORI GRAY ([id number]) 1980 F Date Time Provider Department 02/24/25 [...] tablet by mouth once daily. - Ipratropium Milton (ATROVENT) 21 mcg (0.03 %) nasal spray [...] Each by INTRAUTERINE route as directed. - Yakima-3 Fatty Acids (FISH OIL) 500 mg cap Take 1 capsule by mouth once daily. - blood sugar diagnostic (BLOOD GLUCOSE TEST) test strip Test blood sugar(s) 1 times daily. Dx: Type 2 DM - Controlled E11.9 Insulin: Yes - Lancets lancets Test blood sugar(s) 1 times daily. Dx: Type 2 DM - Controlled E11.9 Insulin: No - Lxzdbsdf-Mc-Ixg-Fe- FA tab Take 1 tablet by mouth [...] 05/06/2009 01/23/2010 Routine general medical examination at [facility]*01/23/2010 12/06/2012 Class: Chronic Routine gynecological examination [Z01.419] 01/23/2010 02/22/2014 Class: Chronic Morbid Obesity [E66.01] 01/23/2010 Lumbar Disc Disorder [M51.9] 02/16/2010 Routine general medical examination at [facility]*12/06/2012 02/22/2014 Anxiety [F41.9] 06/07/2014 Type 2 [...] 09/04/2022 Low (more content not included)... Normal [facility] Inital Evaluation (1) - PTon 02-08-2025 Inital Evaluation (1) - PT [facility] Physical Therapy [facility] [address] [place] [address]. [address] [place] [address] / REHABILITATION SERVICES INITIAL EVALUATION MR#: [id number] Acct: [id number] Name: TORI GRAY Rep #: [id number] : 1980 44 From: Santana GOMEZT Referring Dr.: Dr. Ivette Grimes MD Status: REG RCR [facility]: [facility] [employer] SELF PAY INSURANCE Patient's Visit [...] to be FAXED BACK to us at [phone] for Medicare purposes. For Medicare only, by signing this I certify the plan of care. Please let me know if there are questions or concerns regarding this plan of care. Physician Signature: __Date: 02/08/25 1434 CC: Dr. Ivette Grimes MD CLS Signed Normal [facility] Chiropractic Reporton 2024 Chiropractic Report [facility] [place] [facility] [address] [place] [address] OFFICE VISIT Date of Service: 02/04/25 MR#: [id number] Acct: [id number] Name: TORI GRAY Rep #: [id number] : 1980 Provider: CONCEPCIÓN Mccarty Do ssi Age/Sex: 44/F Location: [facility] Status: Signed Intake Vital Signs 11/11/24 05:55 [...] 7 days #30 ea 02/04/25 Rx packet [facility] Medical History Abnormal ECG Prolonged [...] adjustment. 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 Normal [facility] Anion gap in Serum or Plasma Ordered By: Ivette Grimes on 01-28-2025 Anion gap [Moles/Vol] 11 mmol/L - [facility] BUN/creatinine ratioOrdered By: Ivette Grimes on 01-28-2025 Urea nitrogen/Creatinine [Mass ratio] 18.5 mg/mg - [facility] Basic Metabolic Profile (BMP )on 01-28-2025 BUN/CRE 18.5 RATIO Normal - [facility] Comment on above: Performed By: #### L 500.2500, L501.9985 #### [facility] Laboratory [address], [address] Calcium [Mass/Vol] 9.0 mg/dL Normal 7.6-11.0 [facility] Comment on above: Performed By: #### L 500.2500, L501.9985 #### [facility] [address] [place], [address] Chloride [Moles/Vol] 105 mmol/L Normal 98-108 [facility] Comment on above: Performed By: #### L 500.2500, L501.9985 #### [facility] [address] [place], [address] CO2 [Moles/Vol] 21.2 mmol/L Normal 21.0-32.0 [facility] Comment on above: Performed By: #### L 500.2500, L501.9985 #### [facility] [address] [place], [address] Creatinine [Mass/Vol] 0.77 mg/dL Normal 0.70-1.20 [facility] Comment on above: Performed By: #### L 500.2500, L501.9985 #### [facility] [address] [place], [address] GAP 11 Normal -15 [facility] Comment on above: Performed By: #### L 500.2500, L501.9985 #### [facility] [address] [place], [address] GFR/1.73 sq M.predicted among non-blacks MDRD (S/P/Bld) [Vol rate/Area] 98 mL/min/{1.73_m2} Normal >60 [facility] Comment on above: Result Comment: mL/m in/1.73m2 CKD-EPI Creatinine Equation (2020) Performed By: #### L 500.2500, L501.9985 #### [facility] [address] [place], [address] Glucose [Mass/Vol] 185 mg/dL High 70-99 [facility] Comment on above: Performed By: #### L 500.2500, L501.9985 #### [facility] [address] [place], [address] Potassium [Moles/Vol] 4.2 mmol/L Normal 3.3-5.1 [facility] Comment on above: Result Comment: Hemo lysis present, Results??could be affected. ?? Performed By: #### L 500.2500, L501.9985 #### [facility] [address] [place], [address] Sodium [Moles/Vol] 137 mmol/L Normal 133-145 [facility] Comment on above: Performed By: #### L 500.2500, L501.9985 #### [facility] [address] [place], [address] Urea nitrogen [Mass/Vol] 14 mg/dL Normal 4-19 [facility] Comment on above: Performed By: #### L 500.2500, L501.9985 #### [facility] [address] [place], [address] CNPNon 01-28-2025 [facility] TORI GRAY ([id number]) 1980 F Date Time Provider Department 01/28/25 IVETTE GRIMES [facility] During your visit today, we recorded the following information about you: Krystle Barnett, RN 01/28/2025 4:54 PM Signed Prior Authorization Documentation Prior authorization requested for the following medication: Medication: Ozempic 1 mg (all though PA done in Aug 2024 and approved until Aug 2025 this needs PA due to dose change). Provider: [employer] Name: [employer] Phone number: [phone] Patient ID number: [id number] Pharmacy Name: [facility] Pharmacy Telephone number: [phone] Evon Philippe LPN 01/28/2025 4:56 PM Signed Electronic PA requested. Evon Philippe LPN 01/28/2025 4:58 PM Signed Unable to complete electronically. Will try on covermymeds Evon Philippe LPN 01/29/2025 9:07 AM Signed [employer] RESPONSE. [employer] does not handle this review. Please visit [employer] to start a prior authorization or fax information to [phone]. Please include all supporting chart notes. You may contact [employer] at [phone]. WILL FAX PA REQUEST TO NUMBER PROVIDED. 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 Allergies As of Date: 01/28/2025 Noted Allergy [...] tablet by mouth once daily. - Ipratropium Milton (ATROVENT) 21 mcg (0.03 %) nasal spray [...] Each by INTRAUTERINE route as directed. - Yakima-3 Fatty Acids (FISH OIL) 500 mg cap Take 1 capsule by mouth once daily. - blood sugar diagnostic (BLOOD GLUCOSE TEST) test strip Test blood sugar(s) 1 times daily. Dx: Type 2 DM - Controlled E11.9 Insulin: Yes - Lancets lancets Test blood sugar(s) 1 times daily. Dx: Type 2 DM - Controlled E11.9 Insulin: No - Pasecyrb-Xy-Qkt-Fe- FA tab Take 1 tablet by mouth [...] DERMATOFIBROMA///BE N (more content not included)... Normal [facility] Telephone (FAMPWS) ---- ISAACCASSANDRAJUDAH Love ([id number]) 1980 F Date Time Provider Department 01/28/25 [...] tablet by mouth once daily. - Ipratropium Milton (ATROVENT) 21 mcg (0.03 %) nasal spray [...] Each by INTRAUTERINE route as directed. - Yakima-3 Fatty Acids (FISH OIL) 500 mg cap Take 1 capsule by mouth once daily. - blood sugar diagnostic (BLOOD GLUCOSE TEST) test strip Test blood sugar(s) 1 times daily. Dx: Type 2 DM - Controlled E11.9 Insulin: Yes - Lancets lancets Test blood sugar(s) 1 times daily. Dx: Type 2 DM - Controlled E11.9 Insulin: No - Ccbbhult-Ii-Fqa-Fe- FA tab Take 1 tablet by mouth once daily. Meds Comments as of 03/01/2019: Percocet March 01, 2019 Stephanie uSresh RN Problem List As Of Date 01/28/2025 [...] 02/16/2010 Routine general medical examination at a [facility]*12/06/2012 02/22/2014 Anxiety [F41.9] 06/07/2014 Type [...] R19.7] 11/22/202109/04 (more content not included)... Normal [facility] Carbon dioxide, total [Moles /volume] in Central venous bloodOrdered By: Ivette Grimes on 01-28-2025 CO2 [Moles/Vol] 21.2 mmol/L 21.0-32.0 [facility] Chloride assayOrdered By: Regina Grimes on 01-28-2025 Chloride [Moles/Vol] 105 mmol/L 98-108 [facility] GFR/1.73 sq M.predicted jamari g non-blacks MDRD (S/P/Bld) [Vol rate/Area]Ordered By: Ivette Grimes on 01-28-2025 Estimated GFR (MDRD) Non-Af Amer 98 >60 [facility] Comment on above: mL/min/1.73m2 CKD-EP I Creatinine Equation (2020) Glomerular filtration rate ( GFR) estimation/1.73 sq m using serum, plasma, or whole bOrdered By: Ivette Grimse on 01-28-2025 GFR/1.73 sq M.predicted among non-blacks MDRD (S/P/Bld) [Vol rate/Area] 98 mL/min/{1.73_m2} >60 [facility] Comment on above: mL/min/1.73m2 CKD-EP I Creatinine Equation (2020) HBA1C (OUTSIDE)on 01-28-2025 [facility] Hemoglobin A1c percentageon 01-28-2025 HbA1c (Bld) [Mass fraction] 6.6 % Normal <=5.6 [facility] Comment on above: Performed By: #### L 500.2500, L501.9985 #### [facility] [address] [place], [place], [id number] Potassium (Unsp spec) [Mass/ Vol]Ordered By: Ivette Grimes on 01-28-2025 Potassium [Moles/Vol] 4.2 mmol/L 3.3-5.1 [facility] Comment on above: Hemolysis present, R esults could be affected. Potassium measurement (mass/ volume)Ordered By: Ivette Grimes on 01-28-2025 Potassium (Unsp spec) [Mass/Vol] 4.2 mmol/L 3.3-5.1 [facility] Comment on above: Hemolysis present, R esults could be affected. Serum creatinine measurement (mass/volume)Ordered By: Ivette Grimes on 01-28-2025 Creatinine [Mass/Vol] 0.77 mg/dL 0.70-1.20 [facility] Serum glucose measurement (m ass/volume)Ordered By: Ivette Grimes on 01-28-2025 Glucose [Mass/Vol] 185 mg/dL High 70-99 [facility] Serum or plasma calcium sharron urement (mass/volume)Ordered By: Ivette Grimes on 01-28-2025 Calcium [Mass/Vol] 9.0 mg/dL 7.6-11.0 [facility] Serum or plasma urea nitroge n measurement (mass/volume)Ordered By: Ivette Grimes on 01-28-2025 Urea nitrogen [Mass/Vol] 14 mg/dL 4-19 [facility] Sodium levelOrdered By: Reji Grimes on 01-28-2025 Sodium [Moles/Vol] 137 mmol/L 133-145 [facility] CNOVon 01-22-2025 [facility] ---- TORI GRAY ([id number]) 1980 F Date Time Provider Department 01/22/25 3:40 PM [facility] During your visit today, we recorded [...] 1 tablet by mouth once daily. Ipratropium Milton (ATROVENT) 21 mcg (0.03 %) nasal spray [...] 1 Each by INTRAUTERINE route as directed. Yakima-3 Fatty Acids (FISH OIL) 500 mg cap Take 1 capsule by mouth once daily. blood sugar diagnostic (BLOOD GLUCOSE TEST) test strip Test blood sugar(s) 1 times daily. Dx: Type 2 DM - Controlled E11.9 Insulin: Yes Lancets lancets Test blood sugar(s) 1 times daily. Dx: Type 2 DM - Controlled E11.9 Insulin: No Kvphzhpq-Lk-Blz-Fe- FA tab Take 1 tablet by mouth [...] Age of Onset Alcohol/Drug Mother Heart Father [place] Cancer Father PANCREATIC CANCER Diabetes Father Coronary [...] Controlled ( (more content not included)... [facility] (FAMPWS) ---- ISAACTORI Ivan ([id number]) 1980 F Date Time Provider Department 12/21/24 JENNI MARTÍNEZ [facility] During your visit today, we recorded the following information about you: Jenni Martínez APRN.POLYGRAPH EXAMINER 12/21/2024 2:36 PM Signed Can you please [...] tablet by mouth once daily. - Ipratropium Milton (ATROVENT) 21 mcg (0.03 %) nasal spray [...] Each by INTRAUTERINE route as directed. - Yakima-3 Fatty Acids (FISH OIL) 500 mg cap Take 1 capsule by mouth once daily. - blood sugar diagnostic (BLOOD GLUCOSE TEST) test strip Test blood sugar(s) 1 times daily. Dx: Type 2 DM - Controlled E11.9 Insulin: Yes - Lancets lancets Test blood sugar(s) 1 times daily. Dx: Type 2 DM - Controlled E11.9 Insulin: No - Irniydhx-Gu-Tja-Fe- FA tab Take 1 tablet by mouth [...] 05/06/2009 01/23/2010 Routine general medical examination at [facility]*01/23/2010 12/06/2012 Class: Chronic Routine gynecological examination [Z01.419] 01/23/2010 02/22/2014 Class: Chronic Morbid Obesity [E66.01] 01/23/2010 Lumbar Disc Disorder [M51.9] 02/16/2010 Routine general medical examination at [facility]*12/06/2012 02/22/2014 Anxiety [F41.9] 06/07/2014 Type 2 diabetes mellitus with microalbuminuria,*0 07/04/2018 Fatty liver [K76.0] 07/21/2018 08/05/2024 LETITIA (obstructive sleep apnea) [G47.33] 07/21/2018 Microalbuminuria [R80.9] 09/30/2018 09/04/2022 Obesity, Class III, BMI >= 40 [E66.01] 11/26/2019 09/04/2022 (more content not included)... Normal [facility] Albumin to globulin ratioOrd ered By: Jenni Martínez on 12-11-2024 Albumin/Globulin [Mass ratio] 0.8 {ratio} Low 0.9-2.4 [facility] Bilirubin, totalOrdered By: Jenni Martínez on 12-11-2024 Bilirubin [Mass/Vol] 0.80 mg/dL 0.20-1.00 [facility] Comment on above: For patients on eltr ombopag therapy, use of Dimension Duchesne TBIL is not recommended. Blood urea nitrogen (BUN)/cr eatinine ratioOrdered By: Jenni Martínez on 12-11-2024 Urea nitrogen/Creatinine [Mass ratio] 11.5 mg/mg 10-20 [facility] CNOVon 12-11-2024 CNOV Office Visit (FAMPWS) ---- TORI GRAY ([id number]) 1980 F Date Time Provider Department 12/11/24 11:00 AM [facility] During your visit today, we recorded the following information about you: Temperature Pulse Respiration Blood pressure 97.8 degrees 72/minute 16/minute 138/74 Weight 125.7 kg Jenni Martínez APRN.POLYGRAPH EXAMINER 12/11/2024 12:26 PM Signed This is a [...] 1 tablet by mouth once daily. Ipratropium Milton (ATROVENT) 21 mcg (0.03 %) nasal spray [...] 1 Each by INTRAUTERINE route as directed. Yakima-3 Fatty Acids (FISH OIL) 500 mg cap Take 1 capsule by mouth once daily. blood sugar diagnostic (BLOOD GLUCOSE TEST) test strip Test blood sugar(s) 1 times daily. Dx: Type 2 DM - Controlled E11.9 Insulin: Yes Lancets lancets Test blood sugar(s) 1 times daily. Dx: Type 2 DM - Controlled E11.9 Insulin: No Qqxycojf-Tr-Fcm-Fe- FA tab Take 1 tablet by mouth once daily. No current facility-administer ed medications for this visit. FAMILY HISTORY Problem Relation Age of Onset Alcohol/Drug Mother Heart Father AL Cancer Father PANCREATIC CANCER Diabetes Father Coronary [...] NECK: Negat (more content not included)... Normal [facility] Hany 12-11-2024 GABRIELAN Telephone (FAMPWS) ---- TORI GRAY ([id number]) 1980 F Date Time Provider Department 12/11/24 IVETTE GRIMES During your visit today, we recorded the following information about you: Brittney Meredith RN 12/11/2024 8:23 AM Signed Patient calling to make appt for evaluation of respiratory sx's that began approx 4 weeks ago. Pt states she feels she may have bronchitis or pneumonia. States she was at [facility] ER last month due to [...] tablet by mouth once daily. - Ipratropium Milton (ATROVENT) 21 mcg (0.03 %) nasal spray [...] Each by INTRAUTERINE route as directed. - Yakima-3 Fatty Acids (FISH OIL) 500 mg cap Take 1 capsule by mouth once daily. - blood sugar diagnostic (BLOOD GLUCOSE TEST) test strip Test blood sugar(s) 1 times daily. Dx: Type 2 DM - Controlled E11.9 Insulin: Yes - Lancets lancets Test blood sugar(s) 1 times daily. Dx: Type 2 DM - Controlled E11.9 Insulin: No - Jrahxnrg-Aa-Mem-Fe- FA tab Take 1 tablet by mouth [...] 01/23/2010 Routine general medical examination at a [facility]*01/23/2010 12/06/2012 Class: Chronic Routine gynecological examination [Z01.419] 01/23/2010 02/22/2014 Class: Chronic Morbid Obesity [E66.01] 01/23/2010 Lumbar Disc Disorder [M51.9] 02/16/2010 Routine general medical examination at [facility]*12/06/2012 02/22/2014 Anxiety [F41.9] 06/07/2014 Type 2 diabetes mellitus with microalbuminuria,*0 07/04/2018 Fatty liver [K76.0] 07/21/2018 08/05/20 (more content not included)... Normal [facility] Telephone (FAMPWS) ---- TORI GRAY ([id number]) 1980 F Date Time Provider Department 12/11/24 JENNI MARTÍNEZ During your visit today, we recorded the following information about you: Jenni Martínez APRN.CNP 12/11/2024 2:18 PM Signed Can you please call the patient and let her know that I am still waiting for x-ray results from [facility]. I went ahead and sent [...] until gone. Authorizing Provider: JENNI MARTÍNEZ APRN.CNP Ferriman, Barbara, LPN 12/11/2024 2:24 PM Signed Patient notified [...] tablet by mouth once daily. - Ipratropium Milton (ATROVENT) 21 mcg (0.03 %) nasal spray [...] Each by INTRAUTERINE route as directed. - Yakima-3 Fatty Acids (FISH OIL) 500 mg cap Take 1 capsule by mouth once daily. - blood sugar diagnostic (BLOOD GLUCOSE TEST) test strip Test blood sugar(s) 1 times daily. Dx: Type 2 DM - Controlled E11.9 Insulin: Yes - Lancets lancets Test blood sugar(s) 1 times daily. Dx: Type 2 DM - Controlled E11.9 Insulin: No - Lfyiuqbh-Kf-Uys-Fe- FA tab Take 1 tablet by mouth [...] SACROILIITIS [ (more content not included)... Normal [facility] Carbon dioxide measurementOr dered By: Jenni Martínez on 12-11-2024 CO2 [Moles/Vol] 23.0 mmol/L 21.0-32.0 [facility] Chest PA and Lateralon 12-11 Chest PA and Lateral [facility] Imaging Services [address] [place], [place] [id number] Chest PA and Lateral MR#: [id number] Acct: [id number] Name: GRAYTORI Rep #: [id number] : 1980 F 44 From: Sammy Gay MD PCP: Dr. Ivette Grimes MD Status: REG CLI Study: Chest PA and Lateral Date of Exam: 12/11/24 Exam# [id number] Ordering Dr: Jenni Mratínez ENAMEL MACHINE OPERATOR-C EXAM: XR Chest, 2 Views CLINICAL INDICATION: TECHNIQUE: Frontal and lateral views of the chest. COMPARISON: No relevant prior studies available. FINDINGS: LUNGS AND PLEURAL SPACES: Unremarkable. No consolidation. No pneumothorax. HEART: Unremarkable. No cardiomegaly. MEDIASTINUM: Unremarkable. Normal mediastinal contour. BONES/JOINTS: Unremarkable. No acute fracture. RAD/Chest PA and Lateral IMPRESSION: No acute cardiopulmonary process. Reading Location: [facility] CC: ENAMEL MACHINE OPERATOR-Mireya Martínez; Dr. Ivette Grimes MD Supervisor [facility]: Signed Normal [facility] Chloride measurementOrdered By: Jenni Martínez on 12-11-2024 Chloride [Moles/Vol] 107 mmol/L 98-107 [facility] Comprehensive Metabolic Prof ilon 12-11-2024 Albumin [Mass/Vol] 3.7 g/dL Normal 3.2-5.0 [facility] Comment on above: Performed By: #### L 500.4050 #### [facility] [address] [place], [address] Albumin/Globulin [Mass ratio] 0.8 {ratio} Low 0.9-2.4 [facility] Comment on above: Performed By: #### L 500.4050 #### [facility] [address] [place], [address] ALK P 84 U/L Normal 45-117 [facility] Comment on above: Performed By: #### L 500.4050 #### [facility] [address] [place], [address] ALT [Catalytic activity/Vol] 53 U/L Normal 13-56 [facility] Comment on above: Performed By: #### L 500.4050 #### [facility] [address] [place], [address] AST [Catalytic activity/Vol] 40 U/L High 15-37 [facility] Comment on above: Performed By: #### L 500.4050 #### [facility] [address] [place], [address] Bilirubin [Mass/Vol] 0.80 mg/dL Normal 0.20-1.00 [facility] Comment on above: Result Comment: For patients on eltrombopag therapy, use of Dimension [place] TBIL is not recommended. Performed By: #### L 500.4050 #### [facility] [address] [place], [address] BUN/CRE 11.5 RATIO Normal 10-20 [facility] Comment on above: Performed By: #### L 500.4050 #### [facility] [address] [place], [address] CA,Total 8.8 mg/dL Normal 8.5-10.1 [facility] Comment on above: Performed By: #### L 500.4050 #### [facility] [address] [place], [address] Chloride [Moles/Vol] 107 mmol/L Normal 98-107 [facility] Comment on above: Performed By: #### L 500.4050 #### [facility] [address] [place], [address] CO2 [Moles/Vol] 23.0 mmol/L Normal 21.0-32.0 [facility] Comment on above: Performed By: #### L 500.4050 #### [facility] [address] [place], [address] Creatinine [Mass/Vol] 0.78 mg/dL Normal 0.55-1.02 [facility] Comment on above: Result Comment: The validity of the calculated GFR GFRAA in patients over 70 years has not been determined. Clinical correlation is essential. Performed By: #### L 500.4050 #### [facility] [address] [place], [address] EST GFR - AA 104 mL/min Normal >60 [facility] Comment on above: Result Comment: Afri can Dutch GFR Calc Performed By: #### L 500.4050 #### [facility] [address] [place], [address] GAP 7 Normal 5-15 [facility] Comment on above: Performed By: #### L 500.4050 #### [facility] [address] [place], [address] GFR/1.73 sq M.predicted among non-blacks MDRD (S/P/Bld) [Vol rate/Area] 86 mL/min/{1.73_m2} Normal >60 [facility] Comment on above: Result Comment: Non- GFR Calc Performed By: #### L 500.4050 #### [facility] [address] [place], [address] Globulin (S) [Mass/Vol] 4.5 g/dL High 2.2-4.2 [facility] Comment on above: Performed By: #### L 500.4050 #### [facility] [address] [place], [address] Glucose [Mass/Vol] 109 mg/dL High 74-106 [facility] Comment on above: Result Comment: Fast ing Glucose result from 100 to 125 mg/dL suggests IMPAIRED HOMEOSTASIS per A.D.A. criteria. Performed By: #### L 500.4050 #### [facility] [address] [place], [address] Potassium [Moles/Vol] 3.9 mmol/L Normal 3.5-5.1 [facility] Comment on above: Performed By: #### L 500.4050 #### [facility] [address] [place], [address] Sodium [Moles/Vol] 137 mmol/L Normal 136-145 [facility] Comment on above: Performed By: #### L 500.4050 #### [facility] [address] [place], [address] T PROT 8.2 g/dL Normal 6.4-8.2 [facility] Comment on above: Performed By: #### L 500.4050 #### [facility] [address] [place], [address] Urea nitrogen [Mass/Vol] 9 mg/dL Normal 7-18 [facility] Comment on above: Performed By: #### L 500.4050 #### [facility] [address] [place], [address] Estimated glomerular filtrat ion rate (GFR) AmericanOrdered By: Jenni Martínez on 12-11-2024 Estimated GFR (MDRD) Amer 104 mL/min >60 [facility] Comment on above: GFR Calc Glomerular filtration rate ( GFR) estimationOrdered By: Jenni Martínez on 12-11-2024 Estimated GFR (MDRD) Non-Af Amer 86 mL/min >60 [facility] Comment on above: Non- GFR Calc GFR/1.73 sq M.predicted among non-blacks MDRD (S/P/Bld) [Vol rate/Area] 86 mL/min/{1.73_m2} >60 [facility] Comment on above: Non- GFR Calc Glucose measurementOrdered B y: Jenni Martínez on 12-11-2024 Glucose [Mass/Vol] 109 mg/dL High 74-106 [facility] Comment on above: Fasting Glucose resu lt from 100 to 125 mg/dL suggests IMPAIRED HOMEOSTASIS per A.D.A. criteria. Laboratory - Chemistry and C hemistry - challengeOrdered By: Jenni Martínez on 12-11-2024 AST [Catalytic activity/Vol] 40 U/L High 15-37 [facility] Potassium measurementOrdered By: Jenni Martínez on 12-11-2024 Potassium [Moles/Vol] 3.9 mmol/L 3.5-5.1 [facility] Serum anion gap measurementO rdered By: Jenni Martínez on 12-11-2024 Anion gap [Moles/Vol] 7 mmol/L 5-15 [facility] Serum globulin measurementOr dered By: Jenni Martínez on 12-11-2024 Globulin (S) [Mass/Vol] 4.5 g/dL High 2.2-4.2 [facility] Serum or plasma alanine arizmendi otransferase (ALT) measurementOrdered By: Jenni Martínez on 12-11-2024 ALT [Catalytic activity/Vol] 53 U/L 13-56 [facility] Serum or plasma albumin sharron urement (mass/volume)Ordered By: Jenni Martínez on 12-11-2024 Albumin [Mass/Vol] 3.7 g/dL 3.2-5.0 [facility] Serum or plasma alkaline toyin sphatase measurementOrdered By: Jenni Martínez on 12-11-2024 ALP [Catalytic activity/Vol] 84 U/L 45-117 [facility] Serum or plasma calcium sharron urement (mass/volume)Ordered By: Jenni Martínez on 12-11-2024 Calcium [Mass/Vol] 8.8 mg/dL 8.5-10.1 [facility] Serum or plasma creatinine m easurement (mass/volume)Ordered By: Jenni Martínez on 12-11-2024 Creatinine [Mass/Vol] 0.78 mg/dL 0.55-1.02 [facility] Comment on above: The validity of the calculated GFR & GFRAA in patients over 70 years has not been determined. Clinical correlation is essential. Serum or plasma urea nitroge n measurement (mass/volume)Ordered By: Jenni Martínez on 12-11-2024 Urea nitrogen [Mass/Vol] 9 mg/dL 7-18 [facility] Sodium levelOrdered By: Ricco Martínez on 12-11-2024 Sodium [Moles/Vol] 137 mmol/L 136-145 [facility] Total proteinOrdered By: John Martínez on 12-11-2024 Protein [Mass/Vol] 8.2 g/dL 6.4-8.2 [facility] Urine Cultureon 11-12-2024 URC Mixed Gram Pos Gram Neg Org [place] Count 11,000-25,000 [facility] Mixed contaminants. Submit a new specimen if indicated. Normal [facility] Comment on above: Performed By: #### M 100.8950 ####[facility] [id number] [place], [address] 12 Lead EKGon 11-11-2024 12 Lead EKG [facility] Cardiovascular Services [address] [place] [address] 12 Lead EKG 11/11/24 0649 MR#: [id number] Acct: [id number] Name: TORI GRAY Rep #: [id number] : 1980 44 From: Jackson Keenan MD [...] abnormality Abnormal ECG Confirmed by Jackson Keenan ([id number]), slot editor PRISCILA FERRERA ([id number]) on 11/12/2024 10:16:52 AM Referred By: Isabel Confirmed By: Jackson Keenan 11/12/24 1016 Date Jackson Keenan MD CC: Dr. Buddy Hall DO; Dr. Ivette Grimes MD Signed Normal [facility] Absolute neutrophil countOrd ered By: Buddy Hall on 11-11-2024 Neutrophils (Bld) [#/Vol] 6.5 10*3/uL 2.0-7.7 [facility] Albumin to globulin ratioOrd ered By: Buddy Hall on 11-11-2024 Albumin/Globulin [Mass ratio] 0.6 {ratio} Low 0.9-2.4 [facility] Bacteria LM.HPF (Urine sed) [#/Area]Ordered By: Buddy Hall on 11-11-2024 Urine Bacteria RARE /hpf None Seen [facility] Basophil percentageOrdered B y: Buddy Hall on 11-11-2024 Basophils/100 WBC (Bld) 0.4 % 0-1 [facility] Bilirubin Test strip Ql (U)O rdered By: Buddy Hall on 11-11-2024 Bilirubin Ql (U) Negative Negative [facility] Bilirubin, totalOrdered By: Buddy Hall on 11-11-2024 Bilirubin [Mass/Vol] 0.90 mg/dL 0.20-1.00 [facility] Comment on above: For patients on eltr ombopag therapy, use of Dimension [place] TBIL is not recommended. Blood urea nitrogen (BUN)/cr eatinine ratioOrdered By: Buddy Hall on 11-11-2024 Urea nitrogen/Creatinine [Mass ratio] 9.8 mg/mg Low 10-20 [facility] CBC W/Diff, Automatedon Absolute Lymph 0.72 X10 3/uL Low 0.83-4.51 [facility] Comment on above: Performed By: #### L 500.4050, L100.0100 #### [facility] [address] [place], [address] Absolute Neut 6.5 X10 3/uL Normal 2.0-7.7 [facility] Comment on above: Performed By: #### L 500.4050, L100.0100 #### [facility] [address] [place], [address] Basophils/100 WBC (Bld) 0.4 % Normal 0-1 [facility] Comment on above: Performed By: #### L 500.4050, L100.0100 #### [facility] [address] [place], [address] Eosinophils/100 WBC (Bld) 1.2 % Normal 0-5 [facility] Comment on above: Performed By: #### L 500.4050, L100.0100 #### [facility] [address] [place], [address] Erythrocyte distribution width (RBC) [Ratio] 13.7 % Normal 11.6-14.6 [facility] Comment on above: Performed By: #### L 500.4050, L100.0100 #### [facility] [address] [place], [address] Hematocrit (Bld) [Volume fraction] 33.1 % Low 37-47 [facility] Comment on above: Performed By: #### L 500.4050, L100.0100 #### [facility] [address] [place], [address] Hemoglobin (Bld) [Mass/Vol] 11.4 g/dL Low 12.0-15.0 [facility] Comment on above: Performed By: #### L 500.4050, L100.0100 #### [facility] [address] [place], [address] IG% 1.200 High 0.0-0.9 [facility] Comment on above: Result Comment: IG% - Immature Granulocytes (promyelocytes, myelocytes and metamyelocytes) > 1% indicates that a LEFT SHIFT is Present. Performed By: #### L 500.4050, L100.0100 #### [facility] [address] [place], [address] Lymphocytes/100 WBC (Bld) 9.2 % Low 19-41 [facility] Comment on above: Performed By: #### L 500.4050, L100.0100 #### [facility] [address] [place], [address] MCH (RBC) [Entitic mass] 31.8 pg Normal 27.0-32.0 [facility] Comment on above: Performed By: #### L 500.4050, L100.0100 #### [facility] [address] [place], [address] MCHC (RBC) [Mass/Vol] 34.4 g/dL Normal 32-36 [facility] Comment on above: Performed By: #### L 500.4050, L100.0100 #### [facility] [address] [place], [address] MCV (RBC) [Entitic vol] 92.5 fL Normal 81-99 [facility] Comment on above: Performed By: #### L 500.4050, L100.0100 #### [facility] [address] [place], [address] Monocytes/100 WBC (Bld) 4.2 % Normal 0-10 [facility] Comment on above: Performed By: #### L 500.4050, L100.0100 #### [facility] [address] [place], [address] Neutrophils/100 WBC (Bld) 83.8 % High 47-70 [facility] Comment on above: Performed By: #### L 500.4050, L100.0100 #### [facility] [address] [place], [address] Nucleated RBC (Bld) [#/Vol] 0 10*3/uL Normal 0-5 [facility] Comment on above: Performed By: #### L 500.4050, L100.0100 #### [facility] [address] [place], [address] Platelet mean volume (Bld) [Entitic vol] 9.6 fL Normal 6.2-12.0 [facility] Comment on above: Performed By: #### L 500.4050, L100.0100 #### [facility] [address] [place], [address] Platelets (Bld) [#/Vol] 108 10*3/uL Low 150-450 [facility] Comment on above: Performed By: #### L 500.4050, L100.0100 #### [facility] [address] [place], [address] RBC (Bld) [#/Vol] 3.58 10*6/uL Low 4.2-5.4 [facility] Comment on above: Performed By: #### L 500.4050, L100.0100 #### [facility] [address] [place], [address] RDW SD 46.7 fl High 35.1-43.9 [facility] Comment on above: Performed By: #### L 500.4050, L100.0100 #### [facility] [address] [place], [address] WBC (Bld) [#/Vol] 7.8 10*3/uL Normal 4.4-11.0 [facility] Comment on above: Performed By: #### L 500.4050, L100.0100 #### [facility] [address] [place], [address] Carbon dioxide measurementOr dered By: Buddy Hall on 11-11-2024 CO2 [Moles/Vol] 28.0 mmol/L 21.0-32.0 [facility] Chloride measurementOrdered By: Buddy Hall on 11-11-2024 Chloride [Moles/Vol] 102 mmol/L 98-107 [facility] Comprehensive Metabolic Prof ilon 11-11-2024 Albumin [Mass/Vol] 2.6 g/dL Low 3.2-5.0 [facility] Comment on above: Performed By: #### L 500.4050, L100.0100 #### [facility] [address] [place], [address] Albumin/Globulin [Mass ratio] 0.6 {ratio} Low 0.9-2.4 [facility] Comment on above: Performed By: #### L 500.4050, L100.0100 #### [facility] [address] [place], [address] ALK P 79 U/L Normal 45-117 [facility] Comment on above: Performed By: #### L 500.4050, L100.0100 #### [facility] [address] [place], [address] ALT [Catalytic activity/Vol] 29 U/L Normal 13-56 [facility] Comment on above: Performed By: #### L 500.4050, L100.0100 #### [facility] [address] [place], [address] AST [Catalytic activity/Vol] 16 U/L Normal 15-37 [facility] Comment on above: Performed By: #### L 500.4050, L100.0100 #### [facility] [address] [place], [address] Bilirubin [Mass/Vol] 0.90 mg/dL Normal 0.20-1.00 [facility] Comment on above: Result Comment: For patients on eltrombopag therapy, use of Dimension [place] TBIL is not recommended. Performed By: #### L 500.4050, L100.0100 #### [facility] [address] [place], [address] BUN/CRE 9.8 RATIO Low 10-20 [facility] Comment on above: Performed By: #### L 500.4050, L100.0100 #### [facility] [address] [place], [address] CA,Total 8.2 mg/dL Low 8.5-10.1 [facility] Comment on above: Performed By: #### L 500.4050, L100.0100 #### [facility] [address] [place], [address] Chloride [Moles/Vol] 102 mmol/L Normal 98-107 [facility] Comment on above: Performed By: #### L 500.4050, L100.0100 #### [facility] [address] [place], [address] CO2 [Moles/Vol] 28.0 mmol/L Normal 21.0-32.0 [facility] Comment on above: Performed By: #### L 500.4050, L100.0100 #### [facility] [address] [place], [address] Creatinine [Mass/Vol] 1.12 mg/dL High 0.55-1.02 [facility] Comment on above: Result Comment: The validity of the calculated GFR GFRAA in patients over 70 years has not been determined. Clinical correlation is essential. Performed By: #### L 500.4050, L100.0100 #### [facility] [address] [place], [address] ECRCL 92.31 ml/min Normal [facility] Comment on above: Performed By: #### L 500.4050, L100.0100 #### [facility] [address] [place], [address] EST GFR - AA 69 mL/min Normal >60 [facility] Comment on above: Result Comment: Afri can Dutch GFR Calc Performed By: #### L 500.4050, L100.0100 #### [facility] [address] [place], [address] GAP 6 Normal 5-15 [facility] Comment on above: Performed By: #### L 500.4050, L100.0100 #### [facility] [address] [place], [address] GFR/1.73 sq M.predicted among non-blacks MDRD (S/P/Bld) [Vol rate/Area] 57 mL/min/{1.73_m2} Low >60 [facility] Comment on above: Result Comment: Non- GFR Calc Performed By: #### L 500.4050, L100.0100 #### [facility] [address] [place], [address] Globulin (S) [Mass/Vol] 4.0 g/dL Normal 2.2-4.2 [facility] Comment on above: Performed By: #### L 500.4050, L100.0100 #### [facility] [address] [place], [address] Glucose [Mass/Vol] 233 mg/dL High 74-106 [facility] Comment on above: Result Comment: Gluc ose result greater than or equal to 200 mg/dL suggests DIABETES MELLITUS per A.D.A. criteria. Performed By: #### L 500.4050, L100.0100 #### [facility] [address] [place], [address] Potassium [Moles/Vol] 2.6 mmol/L Invalid Interpretation Code 3.5-5.1 [facility] Comment on above: Result Comment: Crit ical Result(s) Called at: 07:34:02 11/11/2024 by: ESTEFANIA ALANIZ to Ronald Dumas. Results read back by same. Performed By: #### L 500.4050, L100.0100 #### [facility] [address] [place], [address] Sodium [Moles/Vol] 135 mmol/L Low 136-145 [facility] Comment on above: Performed By: #### L 500.4050, L100.0100 #### [facility] [address] [place], [address] T PROT 6.6 g/dL Normal 6.4-8.2 [facility] Comment on above: Performed By: #### L 500.4050, L100.0100 #### [facility] [address] [place], [address] Urea nitrogen [Mass/Vol] 11 mg/dL Normal 7-18 [facility] Comment on above: Performed By: #### L 500.4050, L100.0100 #### [facility] [address] [place], [address] Emergency Department Summary on 11-11-[address] [facility] Medical Records Department [address] [place] [address] Emergency Department Summary 11/11/24 MR#: [id number] Acct: [id number] Name: TORI GRAY Rep #: [id number] : 1980 44 From: Buddy Hall DO [...] clarification of this denies any room spinning. [facility] Medical History Abnormal ECG Prolonged Q-T [...] you partic (more content not included)... Normal [facility] Eosinophil percentageOrdered By: Buddy Hall on 11-11-2024 Eosinophils/100 WBC (Bld) 1.2 % 0-5 [facility] Epithelial cells.squamous LM Ql (Urine sed)Ordered By: Buddy Hall on 11-11-2024 Epithelial cells.squamous LM.HPF (Urine sed) [#/Area] 0 /[HPF] 5-10 [facility] Erythrocyte distribution wid th ratioOrdered By: Buddy Hall on 11-11-2024 Erythrocyte distribution width (RBC) [Ratio] 13.7 % 11.6-14.6 [facility] Erythrocyte distribution wid th standard deviationOrdered By: Buddy Hall on 11-11-2024 Erythrocyte distribution width (RBC) [Entitic vol] 46.7 fL High 35.1-43.9 [facility] Estimated glomerular filtrat ion rate (GFR) AmericanOrdered By: Buddy Hall on 11-11-2024 Estimated GFR (MDRD) Amer 69 mL/min >60 [facility] Comment on above: GFR Calc Estimation of creatinine deniz aranceOrdered By: Buddy Hall on 11-11-2024 Estimated Creatinine Clearance Calc 92.31 ml/min [facility] Glomerular filtration rate ( GFR) estimationOrdered By: Buddy Hall on 11-11-2024 Estimated GFR (MDRD) Non-Af Amer 57 mL/min Low >60 [facility] Comment on above: Non- GFR Calc Glucose Ql (U)Ordered By: Smith Hall on 11-11-2024 Urine Glucose (UA) Normal mg/dl Normal [facility] Glucose measurementOrdered B y: Buddy Hall on 11-11-2024 Glucose [Mass/Vol] 233 mg/dL High 74-106 [facility] Comment on above: Glucose result great er than or equal to 200 mg/dLsuggests DIABETES MELLITUS per A.D.A. criteria. Hematocrit Auto (Bld) [Volum e fraction]Ordered By: Buddy Hall on 11-11-2024 Hematocrit (Bld) [Volume fraction] 33.1 % Low 37-47 [facility] Hemoglobin measurementOrdere d By: Buddy Hall on 11-11-2024 Hemoglobin (Bld) [Mass/Vol] 11.4 g/dL Low 12.0-15.0 [facility] Immature granulocytes/100 WB C Auto (Bld)Ordered By: Buddy Hall on 11-11-2024 Immature granulocytes/100 WBC (Bld) 1.200 % High 0.0-0.9 [facility] Comment on above: IG% - Immature Granu locytes (promyelocytes, myelocytes and metamyelocytes) > 1% indicates that a LEFT SHIFT is Present. Influenza virus A and B and SARS-CoV-2 (COVID-19) and Respiratory syncytial virus RNAOrdered By: Buddy Hall on 11-11-2024 SARS-CoV-2 (COVID-19) RNA ALLYSON+probe Ql (Unsp spec) [facility] Ketones Test strip Ql (U)Ord ered By: Buddy Hall on 11-11-2024 Ketones Ql (U) 5 mg/dl High Negative [facility] Laboratory - Chemistry and C hemistry - challengeOrdered By: Buddy Hall on 11-11-2024 AST [Catalytic activity/Vol] 16 U/L 15-37 [facility] Lymphocytes Auto (Unsp spec) [#/Vol]Ordered By: Buddy Hall on 11-11-2024 Lymphocytes (Bld) [#/Vol] 0.72 10*3/uL Low 0.83-4.51 [facility] Lymphocytes/100 WBC Auto (Un sp spec)Ordered By: Buddy Hall on 11-11-2024 Lymphocytes/100 WBC (Bld) 9.2 % Low 19-41 [facility] M100.678on 11-11-2024 M100.678 Pending SARS-CoV-2 (COVID 19) Negative INFLUENZA A Negative INFLUENZA B Negative RSV PCR Negative Normal [facility] Comment on above: Performed By: #### M 100.678, L400.0001 #### [facility] [address] [facility] [place], [place], [address] MCV (mean corpuscular volume ) determinationOrdered By: Buddy Hall on 11-11-2024 MCV (RBC) [Entitic vol] 92.5 fL 81-99 [facility] Magnesiumon 11-11-2024 Magnesium [Mass/Vol] 1.7 mg/dL Normal 1.6-2.6 [facility] Comment on above: Performed By: #### L 501.5200 ####[facility] [address] [facility] [place], [place], [address] Magnesium measurementOrdered By: Buddy Hall on 11-11-2024 Magnesium [Mass/Vol] 1.7 mg/dL 1.6-2.6 [facility] Mean corpuscular hemoglobin (MCH) determinationOrdered By: Buddy Hall on 11-11-2024 MCH (RBC) [Entitic mass] 31.8 pg 27.0-32.0 [facility] Mean corpuscular hemoglobin concentration (MCHC) determinationOrdered By: Buddy Hall on 11-11-2024 MCHC (RBC) [Mass/Vol] 34.4 g/dL 32-36 [facility] Mean platelet volume determi nationOrdered By: Buddy Hall on 11-11-2024 Platelet mean volume (Bld) [Entitic vol] 9.6 fL 6.2-12.0 [facility] Microscopic analysis of urin e for red blood cells (RBC)Ordered By: Buddy Hall on 11-11-2024 Urine RBC 0-5 SEEN /hpf 0-5 [facility] Monocyte percentageOrdered B y: Buddy Hall on 11-11-2024 Monocytes/100 WBC (Bld) 4.2 % 0-10 [facility] Mucus LM Ql (Urine sed)Order ed By: Buddy Hall on 11-11-2024 Mucus Ql (Urine sed) 0 SEEN /hpf [facility] Neutrophil percentageOrdered By: Buddy Hall on 11-11-2024 Neutrophils/100 WBC (Bld) 83.8 % High 47-70 [facility] Nitrite Test strip Ql (U)Ord ered By: Buddy Hall on 11-11-2024 Nitrite Ql (U) Negative Negative [facility] Nucleated red blood cell per centageOrdered By: Buddy Hall on 11-11-2024 Nucleated RBC/100 WBC (Bld) [Ratio] 0 % 0-5 [facility] Platelet countOrdered By: Smith Hall on 11-11-2024 Platelets (Bld) [#/Vol] 108 10*3/uL Low 150-450 [facility] Potassium measurementOrdered By: Buddy Hall on 11-11-2024 Potassium [Moles/Vol] 2.6 mmol/L Low 3.5-5.1 [facility] [facility] Comment on above: Critical Result(s) C alled at: 07:34:02 11/11/2024 by: ESTEFANIA ALANIZ to Ronald Dumas. Results read back by same. Protein Test strip Ql (U)Ord ered By: Buddy Hall on 11-11-2024 Protein Ql (U) 100 mg/dl High Negative [facility] RBC Auto (Bld) [#/Vol]Ordere d By: Buddy Hall on 11-11-2024 RBC (Bld) [#/Vol] 3.58 10*6/uL Low 4.2-5.4 [facility] Serum anion gap measurementO rdered By: Buddy Hall on 11-11-2024 Anion gap [Moles/Vol] 6 mmol/L 5-15 [facility] Serum globulin measurementOr dered By: Buddy Hall on 11-11-2024 Globulin (S) [Mass/Vol] 4.0 g/dL 2.2-4.2 [facility] Serum or plasma alanine arizmendi otransferase (ALT) measurementOrdered By: Buddy Hall on 11-11-2024 ALT [Catalytic activity/Vol] 29 U/L 13-56 [facility] Serum or plasma albumin sharron urement (mass/volume)Ordered By: Buddy Hall on 11-11-2024 Albumin [Mass/Vol] 2.6 g/dL Low 3.2-5.0 [facility] Serum or plasma alkaline toyin sphatase measurementOrdered By: Buddy Hall on 11-11-2024 ALP [Catalytic activity/Vol] 79 U/L 45-117 [facility] Serum or plasma calcium sharron urement (mass/volume)Ordered By: Buddy Hall on 11-11-2024 Calcium [Mass/Vol] 8.2 mg/dL Low 8.5-10.1 [facility] Serum or plasma creatinine m easurement (mass/volume)Ordered By: Buddy Hall on 11-11-2024 Creatinine [Mass/Vol] 1.12 mg/dL High 0.55-1.02 [facility] Comment on above: The validity of the calculated GFR & GFRAA in patients over 70 years has not been determined. Clinical correlation is essential. Serum or plasma urea nitroge n measurement (mass/volume)Ordered By: Buddy aHll on 11-11-2024 Urea nitrogen [Mass/Vol] 11 mg/dL 7-18 [facility] Sodium levelOrdered By: Ashia Hall on 11-11-2024 Sodium [Moles/Vol] 135 mmol/L Low 136-145 [facility] Total proteinOrdered By: Sim Hall on 11-11-2024 Protein [Mass/Vol] 6.6 g/dL 6.4-8.2 [facility] Urinalysis, Completeon 11-11 BACTERIA RARE Normal None Seen [facility] Comment on above: Order Comment: CLEAN CATCH Performed By: #### M 100.678, L400.0001 #### [facility] [address] [place], [address] EPI,SQUAMOUS 0-5 SEEN Normal 5-10 [facility] Comment on above: Order Comment: CLEAN CATCH Performed By: #### M 100.678, L400.0001 #### [facility] [address] [place], [address] RBC 0-5 SEEN Normal 0-5 [facility] Comment on above: Order Comment: CLEAN CATCH Performed By: #### M 100.678, L400.0001 #### [facility] [address] [place], [address] WBC 10-25 SEEN Normal 0-5 [facility] Comment on above: Order Comment: CLEAN CATCH Performed By: #### M 100.678, L400.0001 #### [facility] [address] [place], [address] Mucus Ql (Urine sed) 0 SEEN Normal [facility] Comment on above: Order Comment: CLEAN CATCH Performed By: #### M 100.678, L400.0001 #### [facility] [address] [place], [address] Urine blood detectionOrdered By: Buddy Hall on 11-11-2024 Urine Occult Blood 150 /ul High Negative [facility] Urine clarityOrdered By: Sim Hall on 11-11-2024 Clarity (U) Sl. Cloudy Clear [facility] Urine color determinationOrd ered By: Buddy Hall on 11-11-2024 Color (U) Yellow Yellow [facility] Urine cultureOrdered By: Sim Hall on 11-11-2024 Bacteria identified Cx Nom (U) Mixed Gram Pos & Gram Neg Org Abnormal [facility] Urine leukocyte esterase det ection by dipstickOrdered By: Buddy Hall on 11-11-2024 Leukocyte esterase Test strip Ql (U) 500 /ul High Negative [facility] Urine pHOrdered By: Buddy samuel on 11-11-2024 pH (U) 6.5 [pH] 5.0 - 8.0 [facility] Urine specific gravity measu rementOrdered By: Buddy Isabel on 11-11-2024 Specific gravity (U) [Rel density] 1.010 1.002-1.030 [facility] Urobilinogen Ql (U)Ordered B y: Buddy Hall on 11-11-2024 Urine Urobilinogen Normal mg/dl Normal [facility] White blood cell (WBC) count Ordered By: Buddy Gallardoer on 11-11-2024 WBC (Bld) [#/Vol] 7.8 10*3/uL 4.4-11.0 [facility] White blood cell countOrdere d By: Buddy Isabel on 11-11-2024 Urine WBC 10-25 SEEN /hpf 0-5 [facility] Chiropractic Reporton 2023 Chiropractic Report [facility] [address] [place] [address] OFFICE VISIT Date of Service: 10/19/24 MR#: [id number] Acct: [id number] Name: TORI GRAY Rep #: [id number] : 1980 Provider: CONCEPCIÓN Montgomery Age/Sex: 44/F Location[facility] Status: Signed Intake Vital Signs 03/09/24 14:53 [...] Adverse Reaction (Intermediate, Verified 10/19/24 09:22) Hives [facility] Medical History Abnormal ECG Prolonged [...] pain. She reports falling at work at [employer] Saturday. She was setting dishes down when [...] spine nor (more content not included)... Normal [facility] Brain/Head without Contrasto n 10-16-2024 Brain/Head without Contrast [facility] Imaging Services [address] [place] [phone] Brain/Head without Contrast MR#: [id number] Acct: [id number] Name: TORI GRAY Rep #: [id number] : 1980 F 44 From: Samir Brito MD PCP: Dr. 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 Ivette Grimes MD Supervisor Hospitality House: Signed Normal [facility] Emergency Department Summary on 10-16-[address] [facility] Medical Records Department [address] [place] [address] Emergency Department Summary 10/16/24 MR#: [id number] Acct: [id number] Name: TORI GRAY Rep #: [id number] : 1980 44 From: Sam Pearl MD PCP: Dr. Ivette Grimes MD Status:[facility] ER Location: ED HPI History of Present [...] back pain. This will be Worker's Comp. [facility] Medical History Abnormal ECG Prolonged Q-T [...] home: Yes (more content not included)... Normal [facility] HIP, UNI W/ Pelvis 2-3 Views on 10-16-2024 HIP, UNI W/ Pelvis 2-3 Views [facility] Imaging Services [address] [place], [place] [id number] HIP, UNI W/ Pelvis 2-3 Views MR#: [id number] Acct: [id number] Name: TORI GRAY Rep #: [id number] : 1980 F 44 From: Samir Brito MD PCP: Dr. Ivette Grimes MD Status: REG ER Study: HIP, UNI W/ Pelvis 2-3 Views Date of Exam: Exam# [id number] Ordering Dr: Angel Ji -[id number] INDICATION: right hip EXAMINATION/TECHNIQ UE: X-RAY [...] CC: FADUMO Ji; Dr. Ivette Grimes MD Supervisor Hospitality House: Signed Normal [facility] Lumbar Spine 2 or 3 Viewson 10-16-2024 Lumbar Spine 2 or 3 Views [facility] Imaging Services [address] [place] [address] [id number] Lumbar Spine 2 or 3 Views MR#: [id number] Acct: [id number] Name: TORI GRAY Rep #: [id number] : 1980 F 44 From: Samir Brito MD PCP: Dr. Ivette Grimes MD Status: REG ER Study: Lumbar Spine 2 or 3 Views Date of Exam: Exam# [id number] Ordering Dr: Angel Ji -[id number] INDICATION: fall EXAMINATION/TECHNIQ UE: X-RAY - [...] CC: FADUMO Ji; Dr. Ivette Grimes MD Supervisor Hospitality House: Signed Normal [facility] Spine Cervical without Contr ason 10-16-2024 Spine Cervical without Contras [facility] Imaging Services [address] [place], [place] [phone] Spine Cervical without Contras MR#: [id number] Acct: [id number] Name: TORI GRAY Rep #: [id number] : 1980 F 44 From: Samir Brito MD PCP: Dr. Ivette Grimes MD Status: REG ER Study: Spine Cervical without Contras Date of Exam: 12/17/23 Exam# [id number] Ordering Dr: Angel Ji -[id number] INDICATION: fall EXAMINATION: CT SPINE - [...] CC: FADUMO Ji; Dr. Ivette Grimes MD Supervisor Hospitality House: Signed Normal [facility] Chiropractic Reporton 2023 Chiropractic Report [facility] [address] [place] [address] OFFICE VISIT Date of Service: 09/09/24 MR#: [id number] Acct: [id number] Name: TORI GRAY Rep #: [id number] : 1980 Provider: CONCEPCIÓN Montgomery Age/Sex: 44/F Location: [facility] Status: Signed Intake Vital Signs 03/09/24 14:53 [...] less physic (more content not included)... Normal [facility] 09-03-2024 [facility] Office Visit ([facility]) ---- TORI GRAY ([id number]) 1980 F Date Time Provider Department 09/03/24 1:[address] 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 Referring Provider: FATUMA BECKFORD [[id number]] Allergies As of Date: 09/03/2024 Noted Allergy Reaction FARXIGA (DAP (more content not included)... Normal [facility] ---- TORI GRAY ([id number]) 1980 F Date Time Provider Department 09/01/[address] [facility] During your visit today, we recorded [...] needed for wheezing/shortness of breath. - Ipratropium Milton (ATROVENT) 21 mcg (0.03 %) nasal spray [...] Each by INTRAUTERINE route as directed. - Yakima-3 Fatty Acids (FISH OIL) 500 mg cap Take 1 capsule by mouth once daily. - blood sugar diagnostic (BLOOD GLUCOSE TEST) test strip Test blood sugar(s) 1 times daily. Dx: Type 2 DM - Controlled E11.9 Insulin: Yes - Lancets lancets Test blood sugar(s) 1 times daily. Dx: Type 2 DM - Controlled E11.9 Insulin: No - Ukrvetcl-Wv-Viv-Fe- FA tab Take 1 tablet by mouth [...] 05/06/2009 01/23/2010 Routine general medical examination at [facility]*01/23/2010 12/06/2012 Class: Chronic Routine gynecological examination [Z01.419] 01/23/2010 02/22/2014 Class: Chronic Morbid Obesity [E66.01] 01/23/2010 Lumbar Disc Disorder [M51.9] 02/16/2010 Routine general medical examination at [facility]*12/06/2012 02/22/2014 Anxiety [F41.9] 06/07/2014 Type 2 [...] 08/16/2022 Fall (more content not included)... Normal [facility] Telephone ([facility]) ---- TORI GRAY ([id number]) 1980 F Date Time Provider Department 09/01/[address] [facility] During your visit today, we recorded the following information about you: Rebecca Baker 09/01/2024 4:11 PM Signed Tori was Ok'ed to get her botox appointment moved into a new patient time due to frequent rescheduling of this visit. She is now scheduled for , 09/03. She has also requested a refill of her [facility] ODT medication. Please adviseRebecca Allergies As of Date: 09/01/2024 Noted Allergy Reaction FARXIGA (DAPAGLIFLOZIN) 08/05/2024 8 - GI Upset LIDOCAINE 12/24/2019 4 - Hives METFORMIN 08/05/2024 8 - GI Upset STEROIDS (BETAMETHASONE DIPROPION* 2 4 - Hives Date Reviewed: 08/05/2024 Reviewed by: Nirmala Storey LPN - Fully Assessed Reason for Visit: Patient Question [9072] Order(s):rimegepant (NURTEC ODT) 75 mg disintegrating tabletTake [...] needed for wheezing/shortness of breath. - Ipratropium Milton (ATROVENT) 21 mcg (0.03 %) nasal spray [...] Each by INTRAUTERINE route as directed. - Y[place]ima-3 Fatty Acids (FISH OIL) 500 mg cap Take 1 capsule by mouth once daily. - blood sugar diagnostic (BLOOD GLUCOSE TEST) test strip Test blood sugar(s) 1 times daily. Dx: Type 2 DM - Controlled E11.9 Insulin: Yes - Lancets lancets Test blood sugar(s) 1 times daily. Dx: Type 2 DM - Controlled E11.9 Insulin: No - Jncbhyri-Ky-Xfi-Fe- FA tab Take 1 tablet by mouth [...] 05/06/2009 01/23/2010 Routine general medical examination at [facility]*01/23/2010 12/06/2012 Class: Chronic Routine gynecological examination [Z01.419] 01/23/2010 02/22/2014 Class: Chronic Morbid Obesity [E66.01] 01/23/2010 Lumbar Disc Disorder [M51.9] 02/16/2010 Routine general medical examination at [facility]*12/06/2012 02/22/2014 Anxiety [F41.9] 06/07/2014 Type 2 [...] mellitus [Z86. (more content not included)... Normal [facility] Chiropractic Reporton 2023 Chiropractic Report [facility] [address] [place] [address] OFFICE VISIT Date of Service: 08/25/24 MR#: [id number] Acct: [id number] Name: TORI GRAY Rep #: [id number] : 1980 Provider: CONCEPCIÓN Montgomery Age/Sex: 44/F [place] [facility] Status: Signed Intake Vital Signs 03/09/24 14:53 Height 5 ft 7 in Intake Visit Reasons: Back pain Chief Complaint: low Back pain/neck pain Is patient in pain?: Yes Pain scale (1-10): 7 Allergies Corticosteroids (Glucocorticoids) (steroids) Allergy (Verified 08/25/24 09:29) Hives lidocaine Adverse Reaction (Intermediate, Verified 08/25/24 09:29) Hives [facility] Medical History Abnormal ECG Prolonged [...] L5 a (more content not included)... Normal [facility] Chiropractic Reporton 2023 Chiropractic Report [facility] [address] [place] [address] OFFICE VISIT Date of Service: 08/13/24 MR#: [id number] Acct: [id number] Name: TORI GRAY Rep #: [id number] : 1980 Provider: CONCEPCIÓN Montgomery Age/Sex: 44/F Location: [facility] Status: Signed Intake Vital Signs 03/09/24 14:53 [...] glute and thig (more content not included)... [facility] 08-11-2024 [facility] Telephone ([facility]) ---- TORI GRAY ([id number]) 1980 F Date Time Provider Department 08/11/[address] [facility] During your visit today, we recorded [...] needed for wheezing/shortness of breath. - Ipratropium Milton (ATROVENT) 21 mcg (0.03 %) nasal spray [...] Each by INTRAUTERINE route as directed. - Yakima-3 Fatty Acids (FISH OIL) 500 mg cap Take 1 capsule by mouth once daily. - blood sugar diagnostic (BLOOD GLUCOSE TEST) test strip Test blood sugar(s) 1 times daily. Dx: Type 2 DM - Controlled E11.9 Insulin: Yes - Lancets lancets Test blood sugar(s) 1 times daily. Dx: Type 2 DM - Controlled E11.9 Insulin: No - Tumnhqpi-La-Oly-Fe- FA tab Take 1 tablet by mouth [...] 09/04/2022 11 (more content not included)... 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 Excited for this because will not be as physical. Reviewed labs recently done at [facility]. A1c was 6.7. ldl was [...] as needed for wheezing/shortness of breath. Ipratropium Milton (ATROVENT) 21 mcg (0.03 %) nasal spray [...] 1 Each by INTRAUTERINE route as directed. Yakima-3 Fatty Acids (FISH OIL) 500 mg cap Take 1 capsule by mouth once daily. blood sugar diagnostic (BLOOD GLUCOSE TEST) test strip Test blood sugar(s) 1 times daily. Dx: Type 2 DM - Controlled E11.9 Insulin: Yes Lancets lancets Test blood sugar(s) 1 times daily. Dx: Type 2 DM - Controlled E11.9 Insulin: No Knsfewie-Vv-Oig-Fe- FA tab Take 1 tablet by mouth [...] Age of Onset Alcohol/Drug Mother Heart Father AL Cancer Father PANCREATIC CANCER Diabetes Father Coronary [...] surgical h (more content not included)... Normal [facility] 08-05-2024 [facility] Telephone (JAIMEWS) ---- TORI GRAY ([id number]) 1980 F Date Time Provider Department 08/05/24 [facility] During your visit today, we recorded the following information about you: Dennise Robles MA 08/06/2024 10:44 AM Signed APPROVAL. [facility] # [id number] VALIDITY DATES 08/06/24-08/05/25 Pharmacy informed. Dennise Robles MA Allergies As of Date: 08/05/2024 Noted Allergy Reaction FARXIGA (DAPAGLIFLOZIN) 08/05/2024 8 - GI Upset LIDOCAINE 12/24/2019 4 - Hives METFORMIN 08/05/2024 8 - GI Upset STEROIDS (BETAMETHASONE DIPROPION* 2 4 - Hives Date Reviewed: 08/05/2024 Reviewed by: Nirmala Storey LPN - Fully Assessed Reason for Visit: Insurance Authorization [[id number]] Cmt: Ozempic Prescriptions as of 08/06/2024 - [...] needed for wheezing/shortness of breath. - Ipratropium Milton (ATROVENT) 21 mcg (0.03 %) nasal spray [...] Each by INTRAUTERINE route as directed. - Yakima-3 Fatty Acids (FISH OIL) 500 mg cap Take 1 capsule by mouth once daily. - blood sugar diagnostic (BLOOD GLUCOSE TEST) test strip Test blood sugar(s) 1 times daily. Dx: Type 2 DM - Controlled E11.9 Insulin: Yes - Lancets lancets Test blood sugar(s) 1 times daily. Dx: Type 2 DM - Controlled E11.9 Insulin: No - Qlgngznj-Xb-Gtd-Fe- FA tab Take 1 tablet by mouth [...] 05/06/2009 01/23/2010 Routine general medical examination at [facility]*01/23/2010 12/06/2012 Class: Chronic Routine gynecological examination [Z01.419] 01/23/2010 02/22/2014 Class: Chronic Morbid Obesity [E66.01] 01/23/2010 Lumbar Disc Disorder [M51.9] 02/16/2010 Routine general medical examination at [facility]*12/06/2012 02/22/2014 Anxiety [F41.9] 06/07/2014 Type 2 [...] 09/04/2022 11 (more content not included)... Normal [facility] Chiropractic Reporton 2023 Chiropractic Report [facility] [address] [place] [address] OFFICE VISIT Date of Service: 07/30/24 MR#: [id number] Acct: [id number] Name: TORI GRAY Rep #: [id number] : 1980 Provider: CONCEPCIÓN Montgomery Age/Sex: 44/F Location: [facility] Status: Signed Intake Vital Signs 03/09/24 14:53 [...] L4, Thoracic (more content not included)... Normal [facility] Chest PA and Lateralon 07-22 Chest PA and Lateral [facility] Imaging Services [address] [place], [place] [address] Chest PA and Lateral MR#: [id number] Acct: [id number] Name: TORI GRAY Rep #: [id number] : 1980 F 44 From: Gregorio barry MD PCP: Dr. Ivette Grimes MD Status: [facility] Study: Chest PA and Lateral Date of Exam: 07/22/24 Exam# [id number] Ordering Dr: Ivette Grimes MD -[id number] STUDY: X-RAY CHEST REASON FOR EXAM: [...] EDT , CC: Dr. Ivette Grimes MD Supervisor Hospitality House: Signed Normal [facility] 07-21-2024 [facility] Telephone (FAMWS) ---- TORI GRAY ([id number]) 1980 F Date Time Provider Department 07/21/24 IVETTE GRIMES [facility] During your visit today, we recorded the [...] notified. Requested to have order faxed to [facility]. Order faxed. Ingrid Salmon MA Allergies As of Date: 07/21/2024 Noted Allergy Reaction LIDOCAINE 12/24/2019 4 - Hives STEROIDS (BETAMETHASONE DIPROPION* 4 - Hives Date Reviewed: 07/03/2024 Reviewed by: Nirmala Storey LPN - Fully Assessed Reason for Visit: Orders [681] Primary Visit Diagnosis:Cough, unspecified type [R05.9] Order(s):XR CHEST 2V FRONTAL/LAT [[id number]] Order #: [id number] FUTURE Prescriptions as of 07/21/2024 - dapagliflozin [...] needed for wheezing/shortness of breath. - Ipratropium Milton (ATROVENT) 21 mcg (0.03 %) nasal spray [...] Each by INTRAUTERINE route as directed. - Yakima-3 Fatty Acids (FISH OIL) 500 mg cap Take 1 capsule by mouth once daily. - blood sugar diagnostic (BLOOD GLUCOSE TEST) test strip Test blood sugar(s) 1 times daily. Dx: Type 2 DM - Controlled E11.9 Insulin: Yes - Lancets lancets Test blood sugar(s) 1 times daily. Dx: Type 2 DM - Controlled E11.9 Insulin: No - Tsbpnhfz-Jg-Goc-Fe- FA tab Take 1 tablet by mouth [...] 01/23/2010 Routine general medical examination at [facility]*01/23/2010 12/06/2012 Class: Chronic Routine gynecological examination [Z01.419] 01/23/2010 02/22/2014 Class: Chronic Morbid Obesity [E66.01] 01/23/2010 Lumbar Disc Disorder [M51.9] 02/16/2010 Routine general medical examination at a [facility]*12/06/2012 02/22/2014 Anxiety [F41.9] 06/07/2014 Type [...] lumbar intervertebr (more content not included)... Normal [facility] Chiropractic Reporton 2023 Chiropractic Report [facility]rop[facility] [place] [address] OFFICE VISIT Date of Service: 07/16/24 MR#: [id number] Acct: [id number] Name: TORI GRAY Rep #: [id number] : 1980 Provider: CONCEPCIÓN Montgomery Age/Sex: 44/F [facility] Status: Signed Intake Vital Signs 03/09/24 14:53 Height 5 ft 7 in Intake Visit Reasons: Back pain Chief Complaint: low Back pain Is patient in pain?: Yes Pain scale (1-10): 5 Allergies Corticosteroids (Glucocorticoids) (steroids) Allergy (Verified 07/16/24 11:27) Hives lidocaine Adverse Reaction (Intermediate, Verified 07/16/24 11:27) Hives [facility] Medical History Abnormal ECG Prolonged [...] depending on work activities. She works at [employer] so she is constantly on her feet [...] Response: posit (more content not included)... Normal [facility] 07-09-2024 [facility] Telephone (FAMWS) ---- TORI GRAY ([id number]) 1980 F Date Time Provider Department 07/09/24 IVETTE GRIMES [facility] During your visit today, we recorded the [...] 07/10/2024 11:11 AM Signed Rx sent for [facility]. Lets try this Call sugars in two [...] needed for wheezing/shortness of breath. - Ipratropium Milton (ATROVENT) 21 mcg (0.03 %) nasal spray [...] Each by INTRAUTERINE route as directed. - Yakima-3 Fatty Acids (FISH OIL) 500 mg cap Take 1 capsule by mouth once daily. - blood sugar diagnostic (BLOOD GLUCOSE TEST) test strip Test blood sugar(s) 1 times daily. Dx: Type 2 DM - Controlled E11.9 Insulin: Yes - Lancets lancets Test blood sugar(s) 1 times daily. Dx: Type 2 DM - Controlled E11.9 Insulin: No - Xduicnxy-Zv-Nkg-Fe- FA tab Take 1 tablet by mouth [...] 05/06/2009 01/23/2010 Routine general medical examination at [facility]*01/23/2010 12/06/2012 Class: Chronic Routine gynecological examination [Z01.419] 01/23/2010 02/22/2014 Class: Chronic Morbid Obesity [E66.01] 01/23/2010 Lumbar Disc Disorder [M51.9] 02/16/2010 Routine general medical examination at [facility]*12/06/2012 02/22/2014 Anxiety [F41.9] 06/07/2014 Typ (more content not included)... Normal [facility] 07-08-2024 [facility] Telephone (FAMPWS) ---- TORI GRAY ([id number]) 1980 F Date Time Provider Department 07/08/24 [facility] During your visit today, we recorded the [...] needed for wheezing/shortness of breath. - Ipratropium [place] (ATROVENT) 21 mcg (0.03 %) nasal spray [...] Each by INTRAUTERINE route as directed. - [place]-3 Fatty Acids (FISH OIL) 500 mg cap Take 1 capsule by mouth once daily. - blood sugar diagnostic (BLOOD GLUCOSE TEST) test strip Test blood sugar(s) 1 times daily. Dx: Type 2 DM - Controlled E11.9 Insulin: Yes - Lancets lancets Test blood sugar(s) 1 times daily. Dx: Type 2 DM - Controlled E11.9 Insulin: No - Rlxhcsuo-Bu-Zbc-Fe- FA tab Take 1 tablet by mouth [...] 01/23/2010 Routine general medical examination at a [facility]*01/23/2010 12/06/2012 Class: Chronic Routine gynecological examination [Z01.419] 01/23/2010 02/22/2014 Class: Chronic Morbid Obesity [E66.01] 01/23/2010 Lumbar Disc Disorder [M51.9] 02/16/2010 Routine general medical examination at a [facility]*12/06/2012 02/22/2014 Anxiety [F41.9] 06/07/2014 Type [...] upper extre (more content not included)... Normal [facility] HBA1C (OUTSIDE)on 07-08-2024 HbA1c (Bld) [Mass fraction] 6.7 % [facility] LIPID PANEL (OUTSIDE)on Cholesterol [Mass/Vol] 195 mg/dL [facility] Cholesterol in HDL [Mass/Vol] 35 mg/dL [facility] Cholesterol in LDL [Mass/Vol] 105 mg/dL [facility] LDL:HDL Ratio [facility] Non-HDL Cholesterol [facility] TC:HDL Ratio [facility] Triglyceride [Mass/Vol] 274 mg/dL [facility] VLDL Cholesterol 55 [facility] No Panel Informationon 07-08 [facility] CBC W/Diff, Automatedon 06-06 Absolute Lymph 2.74 X10 3/uL Normal 0.83-4.51 [facility] Comment on above: Performed By: #### L 502.0250, L500.4100, L100.0100, L500.4050, L501.9985 ####[facility] [address] [place], [address] Absolute Neut 4.8 X10 3/uL Normal 2.0-7.7 [facility] Comment on above: Performed By: #### L 502.0250, L500.4100, L100.0100, L500.4050, L501.9985 ####[facility] [address] [place], [address] Basophils/100 WBC (Bld) 0.8 % Normal 0-1 [facility] Comment on above: Performed By: #### L 502.0250, L500.4100, L100.0100, L500.4050, L501.9985 ####[facility] [address] [place], [address] Eosinophils/100 WBC (Bld) 2.6 % Normal 0-5 [facility] Comment on above: Performed By: #### L 502.0250, L500.4100, L100.0100, L500.4050, L501.9985 ####[facility] [address] [place], [address] Erythrocyte distribution width (RBC) [Ratio] 14.0 % Normal 11.6-14.6 [facility] Comment on above: Performed By: #### L 502.0250, L500.4100, L100.0100, L500.4050, L501.9985 ####[facility] [address] [place], [address] Hematocrit (Bld) [Volume fraction] 39.0 % Normal 37-47 [facility] Comment on above: Performed By: #### L 502.0250, L500.4100, L100.0100, L500.4050, L501.9985 ####[facility] [address] [place], [address] Hemoglobin (Bld) [Mass/Vol] 13.1 g/dL Normal 12.0-15.0 [facility] Comment on above: Performed By: #### L 502.0250, L500.4100, L100.0100, L500.4050, L501.9985 ####[facility] [address] [place], [address] IG% 2.300 High 0.0-0.9 [facility] Comment on above: Result Comment: IG% - Immature Granulocytes (promyelocytes, myelocytes and metamyelocytes) > 1% indicates that a LEFT SHIFT is Present. Performed By: #### L 502.0250, L500.4100, L100.0100, L500.4050, L501.9985 ####[facility] [address] [place], [address] Lymphocytes/100 WBC (Bld) 32.5 % Normal 19-41 [facility] Comment on above: Performed By: #### L 502.0250, L500.4100, L100.0100, L500.4050, L501.9985 ####[facility] [address] [place], [address] MCH (RBC) [Entitic mass] 31.2 pg Normal 27.0-32.0 [facility] Comment on above: Performed By: #### L 502.0250, L500.4100, L100.0100, L500.4050, L501.9985 ####[facility] [address] [place], [address] MCHC (RBC) [Mass/Vol] 33.6 g/dL Normal 32-36 [facility] Comment on above: Performed By: #### L 502.0250, L500.4100, L100.0100, L500.4050, L501.9985 ####[facility] [address] [place], [address] MCV (RBC) [Entitic vol] 92.9 fL Normal 81-99 [facility] Comment on above: Performed By: #### L 502.0250, L500.4100, L100.0100, L500.4050, L501.9985 ####[facility] [address] [place], [address] Monocytes/100 WBC (Bld) 5.1 % Normal 0-10 [facility] Comment on above: Performed By: #### L 502.0250, L500.4100, L100.0100, L500.4050, L501.9985 ####[facility] [address] [place], [address] Neutrophils/100 WBC (Bld) 56.7 % Normal 47-70 [facility] Comment on above: Performed By: #### L 502.0250, L500.4100, L100.0100, L500.4050, L501.9985 ####[facility] [address] [place], [address] Nucleated RBC (Bld) [#/Vol] 0 10*3/uL Normal 0-5 [facility] Comment on above: Performed By: #### L 502.0250, L500.4100, L100.0100, L500.4050, L501.9985 ####[facility] [address] [place], [address] Platelet mean volume (Bld) [Entitic vol] 9.2 fL Normal 6.2-12.0 [facility] Comment on above: Performed By: #### L 502.0250, L500.4100, L100.0100, L500.4050, L501.9985 ####[facility] [address] [place], [address] Platelets (Bld) [#/Vol] 196 10*3/uL Normal 150-450 [facility] Comment on above: Performed By: #### L 502.0250, L500.4100, L100.0100, L500.4050, L501.9985 ####[facility] [address] [place], [address] RBC (Bld) [#/Vol] 4.20 10*6/uL Normal 4.2-5.4 [facility] Comment on above: Performed By: #### L 502.0250, L500.4100, L100.0100, L500.4050, L501.9985 ####[facility] [address] [place], [address] RDW SD 47.2 fl High 35.1-43.9 [facility] Comment on above: Performed By: #### L 502.0250, L500.4100, L100.0100, L500.4050, L501.9985 ####[facility] [address] [place], [address] WBC (Bld) [#/Vol] 8.4 10*3/uL Normal 4.4-11.0 [facility] Comment on above: Performed By: #### L 502.0250, L500.4100, L100.0100, L500.4050, L501.9985 ####[facility] [address] [place], [address] Comprehensive Metabolic Prof laon 07-04-2024 Albumin [Mass/Vol] 3.6 g/dL Normal 3.2-5.0 [facility] Comment on above: Performed By: #### L 502.0250, L500.4100, L100.0100, L500.4050, L501.9985 ####[facility] [address] [place], [address] Albumin/Globulin [Mass ratio] 0.9 {ratio} Normal 0.9-2.4 [facility] Comment on above: Performed By: #### L 502.0250, L500.4100, L100.0100, L500.4050, L501.9985 ####[facility] [address] [place], [address] ALK P 96 U/L Normal 45-117 [facility] Comment on above: Performed By: #### L 502.0250, L500.4100, L100.0100, L500.4050, L501.9985 ####[facility] [address] [place], [address] ALT [Catalytic activity/Vol] 41 U/L Normal 13-56 [facility] Comment on above: Performed By: #### L 502.0250, L500.4100, L100.0100, L500.4050, L501.9985 ####[facility] [address] [place], [address] AST [Catalytic activity/Vol] 32 U/L Normal 15-37 [facility] Comment on above: Performed By: #### L 502.0250, L500.4100, L100.0100, L500.4050, L501.9985 ####[facility] [address] [place], [address] Bilirubin [Mass/Vol] 0.40 mg/dL Normal 0.20-1.00 [facility] Comment on above: Result Comment: For patients on eltrombopag therapy, use of Dimension [place] TBIL is not recommended. Performed By: #### L 502.0250, L500.4100, L100.0100, L500.4050, L501.9985 ####[facility] [address] [place], [address] BUN/CRE 13.9 RATIO Normal 10-20 [facility] Comment on above: Performed By: #### L 502.0250, L500.4100, L100.0100, L500.4050, L501.9985 ####[facility] [address] [place], [address] CA,Total 8.9 mg/dL Normal 8.5-10.1 [facility] Comment on above: Performed By: #### L 502.0250, L500.4100, L100.0100, L500.4050, L501.9985 ####[facility] [address] [place], [address] Chloride [Moles/Vol] 107 mmol/L Normal 98-107 [facility] Comment on above: Performed By: #### L 502.0250, L500.4100, L100.0100, L500.4050, L501.9985 ####[facility] [address] [place], [address] CO2 [Moles/Vol] 22.0 mmol/L Normal 21.0-32.0 [facility] Comment on above: Performed By: #### L 502.0250, L500.4100, L100.0100, L500.4050, L501.9985 ####[facility] [address] [place], [address] Creatinine [Mass/Vol] 0.79 mg/dL Normal 0.55-1.02 [facility] Comment on above: Result Comment: The validity of the calculated GFR GFRAA in patients over 70 years has not been determined. Clinical correlation is essential. Performed By: #### L 502.0250, L500.4100, L100.0100, L500.4050, L501.9985 ####[facility] [address] [place], [address] EST GFR - AA 103 mL/min Normal >60 [facility] Comment on above: Result Comment: Afri can Dutch GFR Calc Performed By: #### L 502.0250, L500.4100, L100.0100, L500.4050, L501.9985 ####[facility] [address] [place], [address] GAP 8 Normal 5-15 [facility] Comment on above: Performed By: #### L 502.0250, L500.4100, L100.0100, L500.4050, L501.9985 ####[facility] [address] [place], [address] GFR/1.73 sq M.predicted among non-blacks MDRD (S/P/Bld) [Vol rate/Area] 85 mL/min/{1.73_m2} Normal >60 [facility] Comment on above: Result Comment: Non- GFR Calc Performed By: #### L 502.0250, L500.4100, L100.0100, L500.4050, L501.9985 ####[facility] [address] [place], [address] Globulin (S) [Mass/Vol] 3.9 g/dL Normal 2.2-4.2 [facility] Comment on above: Performed By: #### L 502.0250, L500.4100, L100.0100, L500.4050, L501.9985 ####[facility] [address] [place], [address] Glucose [Mass/Vol] 186 mg/dL High 74-106 [facility] Comment on above: Result Comment: Fast ing Glucose result greater than or equal to 126 mg/dL suggests DIABETES MELLITUS per A.D.A. criteria. Performed By: #### L 502.0250, L500.4100, L100.0100, L500.4050, L501.9985 ####[facility] [address] [place], [address] Potassium [Moles/Vol] 3.8 mmol/L Normal 3.5-5.1 [facility] Comment on above: Performed By: #### L 502.0250, L500.4100, L100.0100, L500.4050, L501.9985 ####[facility] [address] [place], [address] Sodium [Moles/Vol] 137 mmol/L Normal 136-145 [facility] Comment on above: Performed By: #### L 502.0250, L500.4100, L100.0100, L500.4050, L501.9985 ####[facility] [address] [place], [address] T PROT 7.5 g/dL Normal 6.4-8.2 [facility] Comment on above: Performed By: #### L 502.0250, L500.4100, L100.0100, L500.4050, L501.9985 ####[facility] [address] [place], [address] Urea nitrogen [Mass/Vol] 11 mg/dL Normal 7-18 [facility] Comment on above: Performed By: #### L 502.0250, L500.4100, L100.0100, L500.4050, L501.9985 ####[facility] [address] [place], [address] Hemoglobin A1con 07-04-2024 HbA1c (Bld) [Mass fraction] 6.7 % High 3.8-5.6 [facility] Comment on above: Result Comment: Norm al < 5.7 % Prediabetic 5.7 - 6.4 % Diabetic >or= 6.5 % Please note range changes. Performed By: #### L 502.0250, L500.4100, L100.0100, L500.4050, L501.9985 ####[facility] [address] [place], [address] Lipid Profileon 07-04-2024 Cholesterol [Mass/Vol] 195 mg/dL Normal 200 [facility] Comment on above: Result Comment: <200 mg/dL Desirable 200-240 mg/dL Borderline >240 mg/dL High Risk Performed By: #### L 502.0250, L500.4100, L100.0100, L500.4050, L501.9985 ####[facility] [address] [place], [address] Cholesterol in HDL [Mass/Vol] 35 mg/dL Low [facility] Comment on above: Result Comment: The drugs N-Acetylcysteine and Metamizole may falsely depress this assay. Reference Range HDL <40 mg/dL Low HDL Cholesterol HDL >or= 60 mg/dL High HDL Cholesterol Performed By: #### L 502.0250, L500.4100, L100.0100, L500.4050, L501.9985 ####[facility] [address] [place], [address] Cholesterol in LDL [Mass/Vol] 105 mg/dL Normal 0-130 [facility] Comment on above: Performed By: #### L 502.0250, L500.4100, L100.0100, L500.4050, L501.9985 ####[facility] [address] [place], [address] Cholesterol in VLDL [Mass/Vol] 55 mg/dL High 5-40 [facility] Comment on above: Performed By: #### L 502.0250, L500.4100, L100.0100, L500.4050, L501.9985 ####[facility] [address] [place], [address] Triglyceride [Mass/Vol] 274 mg/dL High [facility] Comment on above: Result Comment: The drugs N-Acetylcysteine and Metamizole may falsely depress this assay. Serum Triglycerides Reference Interval Normal <150 mg/dL Borderline high 150 - 199 mg/dL High 200 - 499 mg/dL Very High > or = 500 mg/dL Performed By: #### L 502.0250, L500.4100, L100.0100, L500.4050, L501.9985 ####[facility] [address] [place], [address] MICROALBUMIN/CREATININE UR W RATIO (EXTERNAL)Ordered By: Lubna Yoon on 07-04-2024 Albumin/Creat Ratio 93 [facility] Creatinine Urine 164 [facility] Microalbumin, Random urine 153 [facility] Microalb:Creat Ratio,Random URon 07-04-2024 Creatinine [Mass/Vol] 164.00 mg/dL Normal NO RAN GE EST. [facility] Comment on above: Performed By: #### L 502.0250, L500.4100, L100.0100, L500.4050, L501.9985 ####[facility] [address] [place], [place], [address] MALB:CRE 93.3 mg/g CRE High <30 mg/g CRE [facility] Comment on above: Performed By: #### L 502.0250, L500.4100, L100.0100, L500.4050, L501.9985 ####[facility] [address] [place], [address] MICROALBUMIN,UR 153.0 mg/L Normal NO RANGE EST. [facility] Comment on above: Performed By: #### L 502.0250, L500.4100, L100.0100, L500.4050, L501.9985 ####[facility] [address] [place], [place], [address] CNOVon 07-03-2024 [facility] ---- TORI GRAY ([id number]) 1980 F Date Time Provider Department 07/03/24 3:40 PM [facility] During your visit today, we recorded [...] as needed for wheezing/shortness of breath. Ipratropium [place] (ATROVENT) 21 mcg (0.03 %) nasal spray [...] 1 Each by INTRAUTERINE route as directed. [place]-3 Fatty Acids (FISH OIL) 500 mg cap Take 1 capsule by mouth once daily. blood sugar diagnostic (BLOOD GLUCOSE TEST) test strip Test blood sugar(s) 1 times daily. Dx: Type 2 DM - Controlled E11.9 Insulin: Yes Lancets lancets Test blood sugar(s) 1 times daily. Dx: Type 2 DM - Controlled E11.9 Insulin: No Oxykcrow-Up-Nlv-Fe- FA tab Take 1 tablet by mouth [...] Age of Onset Alcohol/Drug Mother Heart Father AL Cancer Father PANCREATIC CANCER Diabetes Father Coronary [...] in no (more content not included)... Normal [facility] Chiropractic Reporton 2023 Chiropractic Report [facility] Chiropractic [facility] [place] [address] OFFICE VISIT Date of Service: 07/02/24 MR#: [id number] Acct: [id number] Name: TORI GRAY Rep #: [id number] : 1980 Provider: CONCEPCIÓN Montgomery Age/Sex: 44/F [place] [facility] [place] Status: Signed Intake Vital Signs 03/09/24 14:53 [...] or tingling (more content not included)... Normal [facility] Absolute lymphocyte countOrd ered By: Sam Pearl on 02-04-2024 Lymphocytes Auto (Unsp spec) [#/Vol] 2.24 10*3/uL 0.83-4.51 [facility] Automated lymphocyte count a s percentage of total leukocytesOrdered By: Sam Pearl on 02-04-2024 Lymphocytes/100 WBC Auto (Unsp spec) 19.8 % 19-41 [facility] Basophil percentageOrdered B y: Sam Pearl on 02-04-2024 Basophils/100 WBC (Bld) 0.4 % 0-1 [facility] Chloride [Moles/Vol] 106 mmol/L 98-107 [facility] Eosinophils/100 WBC (Bld) 0.9 % 0-5 [facility] Glucose [Mass/Vol] 246 mg/dL 74-106 [facility] Comment on above: Glucose result great er than or equal to 200 mg/dLsuggests DIABETES MELLITUS per A.D.A. criteria. Hemoglobin (Bld) [Mass/Vol] 11.2 g/dL 12.0-15.0 [facility] Monocytes/100 WBC (Bld) 6.6 % 0-10 [facility] Neutrophils (Bld) [#/Vol] 8.0 10*3/uL 2.0-7.7 [facility] Neutrophils/100 WBC (Bld) 71.0 % 47-70 [facility] Potassium [Moles/Vol] 3.6 mmol/L 3.5-5.1 [facility] Sodium [Moles/Vol] 135 mmol/L 136-145 [facility] WBC (Bld) [#/Vol] 11.3 10*3/uL 4.4-11.0 [facility] Basophil percentage 10-25 SEEN /hpf 0-5 [facility] Bilirubin Test strip Ql (U)O rdered By: Sam Pearl on 02-04-2024 Bilirubin Ql (U) Negative Negative [facility] Determination of erythrocyte mean corpuscular volume (MCV)Ordered By: Sam Pearl on 02-04-2024 MCV (RBC) [Entitic vol] 89.5 fL 81-99 [facility] Erythrocyte distribution wid th ratioOrdered By: Sam Pearl on 02-04-2024 Erythrocyte distribution width (RBC) [Ratio] 13.2 % 11.6-14.6 [facility] Erythrocyte distribution wid th standard deviationOrdered By: Sam Pearl on 02-04-2024 Erythrocyte distribution width (RBC) [Entitic vol] 43.2 fL 35.1-43.9 [facility] Hematocrit Auto (Bld) [Volum e fraction]Ordered By: Sam Pearl on 02-04-2024 Hematocrit (Bld) [Volume fraction] 34.2 % 37-47 [facility] Immature granulocytes/100 WB C Auto (Bld)Ordered By: Sam Pearl on 02-04-2024 Immature granulocytes/100 WBC (Bld) 1.300 % 0.0-0.9 [facility] Comment on above: IG% - Immature Granu locytes (promyelocytes, myelocytes and metamyelocytes) > 1% indicates that a LEFT SHIFT is Present. Ketones Test strip Ql (U)Ord ered By: Sam Pearl on 02-04-2024 Ketones Ql (U) Negative Negative [facility] Laboratory - Chemistry and C hemistry - challengeOrdered By: Sam Pearl on 02-04-2024 CO2 [Moles/Vol] 21.0 mmol/L 21.0-32.0 [facility] Urea nitrogen/Creatinine [Mass ratio] 15.0 mg/mg 10-20 [facility] Laboratory - Hematology and Cell countsOrdered By: Sam Pearl on 02-04-2024 MCH (RBC) [Entitic mass] 29.3 pg 27.0-32.0 [facility] MCHC (RBC) [Mass/Vol] 32.7 g/dL 32-36 [facility] Nucleated RBC/100 WBC (Bld) [Ratio] 0 % 0-5 [facility] Platelet mean volume (Bld) [Entitic vol] 9.2 fL 6.2-12.0 [facility] Platelets (Bld) [#/Vol] 203 10*3/uL 150-450 [facility] Laboratory - Microbiology an d Antimicrobial susceptibilityOrdered By: Sam Pearl on 02-04-2024 SARS-CoV-2 (COVID-19) RNA ALLYSON+probe Ql (Unsp spec) [facility] Mucus LM Ql (Urine sed)Order ed By: Sam Pearl on 02-04-2024 Mucus Ql (Urine sed) 0 SEEN /hpf [facility] Nitrite Test strip Ql (U)Ord ered By: Sam Pearl on 02-04-2024 Nitrite Ql (U) Negative Negative [facility] No Panel InformationOrdered By: Sam Pearl on 02-04-2024 Estimated Creatinine Clearance Calc 116.68 ml/min [facility] Estimated GFR (MDRD) Amer 92 mL/min >60 [facility] Comment on above: GFR Calc Estimated GFR (MDRD) Non-Af Amer 76 mL/min >60 [facility] Comment on above: Non- GFR Calc Urine RBC 0-5 SEEN /hpf 0-5 [facility] Protein Test strip Ql (U)Ord ered By: Sam Pearl on 02-04-2024 Protein Ql (U) 15 mg/dl Negative [facility] RBC Auto (Bld) [#/Vol]Ordere d By: Sam Pearl on 02-04-2024 RBC (Bld) [#/Vol] 3.82 10*6/uL 4.2-5.4 [facility] Serum or plasma calcium sharron urement (mass/volume)Ordered By: Sam Pearl on 02-04-2024 Calcium [Mass/Vol] 8.4 mg/dL 8.5-10.1 [facility] Serum or plasma creatinine m easurement (mass/volume)Ordered By: Sam Pearl on 02-04-2024 Creatinine [Mass/Vol] 0.87 mg/dL 0.55-1.02 [facility] Comment on above: The validity of the calculated GFR & GFRAA in patients over 70 years has not been determined. Clinical correlation is essential. Serum or plasma urea nitroge n measurement (mass/volume)Ordered By: Sam Pearl on 02-04-2024 Urea nitrogen [Mass/Vol] 13 mg/dL 7-18 [facility] Squamous epithelial cells de tection in urine sediment by light microscopyOrdered By: Sam Pearl on 02-04-2024 Epithelial cells.squamous LM Ql (Urine sed) 0-5 SEEN /hpf 5-10 [facility] Thin prep Papanicolaou smear with manual screeningOrdered By: Sam Pearl on 02-04-2024 Thin prep Papanicolaou smear with manual screening 8 5-15 [facility] Urine blood detectionOrdered By: Sam Pearl on 02-04-2024 RBC Ql (U) 10 /ul Negative [facility] Urine clarityOrdered By: Ramses Pearl on 02-04-2024 Clarity (U) Clear Clear [facility] Urine color determinationOrd ered By: Sam Pearl on 02-04-2024 Color (U) Yellow Yellow [facility] Urine glucose detectionOrder ed By: Sam Pearl on 02-04-2024 Glucose Ql (U) Normal mg/dl Normal [facility] Urine leukocyte esterase det ection by dipstickOrdered By: Sam Pearl on 02-04-2024 Leukocyte esterase Test strip Ql (U) 100 /ul Negative [facility] Urine pHOrdered By: Sam Pearl on 02-04-2024 pH (U) 7.0 [pH] 5.0 - 8.0 [facility] Urine sediment bacteria coun t by microscopy (number/high power field)Ordered By: Sam Pearl on 02-04-2024 Bacteria LM.HPF (Urine sed) [#/Area] 4 /[HPF] None Seen [facility] Urine specific gravity measu rementOrdered By: Sam Pearl on 02-04-2024 Specific gravity (U) [Rel density] 1.010 1.002-1.030 [facility] Urine urobilinogen measureme ntOrdered By: Sam Pearl on 02-04-2024 Urobilinogen Ql (U) Normal mg/dl Normal [facility] Absolute lymphocyte countOrd ered By: Ivette Grimes on 12-06-2023 Lymphocytes Auto (Unsp spec) [#/Vol] 2.89 10*3/uL 0.83-4.51 [facility] Automated lymphocyte count a s percentage of total leukocytesOrdered By: Ivette Grimes on 12-06-2023 Lymphocytes/100 WBC Auto (Unsp spec) 27.0 % 19-41 [facility] Basophil percentageOrdered B y: Ivette Grimes on 12-06-2023 Basophils/100 WBC (Bld) 0.7 % 0-1 [facility] Bilirubin [Mass/Vol] 0.50 mg/dL 0.20-1.00 [facility] Comment on above: For patients on eltr ombopag therapy, use of Dimension [place] TBIL is not recommended. Chloride [Moles/Vol] 113 mmol/L 98-107 [facility] Cholesterol [Mass/Vol] 202 mg/dL <200 [facility] Comment on above: <200 mg/dL Desirable 200-240 mg/dL Borderline >240 mg/dL High Risk Eosinophils/100 WBC (Bld) 1.4 % 0-5 [facility] Glucose [Mass/Vol] 113 mg/dL 74-106 [facility] Comment on above: Fasting Glucose resu lt from 100 to 125 mg/dL suggests IMPAIRED HOMEOSTASIS per A.D.A. criteria. Hemoglobin (Bld) [Mass/Vol] 13.1 g/dL 12.0-15.0 [facility] Monocytes/100 WBC (Bld) 3.6 % 0-10 [facility] Neutrophils (Bld) [#/Vol] 7.1 10*3/uL 2.0-7.7 [facility] Neutrophils/100 WBC (Bld) 66.3 % 47-70 [facility] Potassium [Moles/Vol] 4.0 mmol/L 3.5-5.1 [facility] Protein [Mass/Vol] 8.7 g/dL 6.4-8.2 [facility] Sodium [Moles/Vol] 138 mmol/L 136-145 [facility] Triglyceride [Mass/Vol] 192 mg/dL <199 [facility] Comment on above: The drugs N-Acetylcy steine and Metamizole may falsely depress this assay.Serum Triglycerides Reference Interval Normal <150 mg/dL Borderline high 150 - 199 mg/dL High 200 - 499 mg/dL Very High > or = 500 mg/dL WBC (Bld) [#/Vol] 10.7 10*3/uL 4.4-11.0 [facility] Determination of erythrocyte mean corpuscular volume (MCV)Ordered By: Ivette Grimes on 12-06-2023 MCV (RBC) [Entitic vol] 92.8 fL 81-99 [facility] Erythrocyte distribution wid th ratioOrdered By: Ivette Grimes on 12-06-2023 Erythrocyte distribution width (RBC) [Ratio] 13.1 % 11.6-14.6 [facility] Erythrocyte distribution wid th standard deviationOrdered By: Ivette Grimes on 12-06-2023 Erythrocyte distribution width (RBC) [Entitic vol] 44.4 fL 35.1-43.9 [facility] Hematocrit Auto (Bld) [Volum e fraction]Ordered By: Ivette Grimes on 12-06-2023 Hematocrit (Bld) [Volume fraction] 39.9 % 37-47 [facility] Immature granulocytes/100 WB C Auto (Bld)Ordered By: Ivette Grimes on 12-06-2023 Immature granulocytes/100 WBC (Bld) 1.000 % 0.0-0.9 [facility] Comment on above: IG% - Immature Granu locytes (promyelocytes, myelocytes and metamyelocytes) > 1% indicates that a LEFT SHIFT is Present. Laboratory - Chemistry and C hemistry - challengeOrdered By: Ivette Grimes on 12-06-2023 Albumin/Globulin [Mass ratio] 0.9 {ratio} 0.9-2.4 [facility] ALP [Catalytic activity/Vol] 80 U/L 45-117 [facility] ALT [Catalytic activity/Vol] 24 U/L 13-56 [facility] Cholesterol in HDL (Body fld) [Mass/Vol] 36 mg/dL >40 [facility] Comment on above: The drugs N-Acetylcy steine and Metamizole may falsely depress this assay. Reference Range HDL <40 mg/dL Low HDL Cholesterol HDL >or= 60 mg/dL High HDL Cholesterol Cholesterol in LDL (Body fld) [Moles/Vol] 128 mg/dL 0-130 [facility] Cholesterol in VLDL Calc [Moles/Vol] 38 mg/dL 5-40 [facility] CO2 [Moles/Vol] 19.0 mmol/L 21.0-32.0 [facility] Globulin (S) [Mass/Vol] 4.6 g/dL 2.2-4.2 [facility] Urea nitrogen/Creatinine [Mass ratio] 25.9 mg/mg 10-20 [facility] Laboratory - Hematology and Cell countsOrdered By: Ivette Grimes on 12-06-2023 MCH (RBC) [Entitic mass] 30.5 pg 27.0-32.0 [facility] MCHC (RBC) [Mass/Vol] 32.8 g/dL 32-36 [facility] Nucleated RBC/100 WBC (Bld) [Ratio] 0 % 0-5 [facility] Platelets (Bld) [#/Vol] 241 10*3/uL 150-450 [facility] No Panel InformationOrdered By: Ivette Grimes on 12-06-2023 Estimated GFR (MDRD) Amer 90 mL/min >60 [facility] Comment on above: GFR Calc Estimated GFR (MDRD) Non-Af Amer 74 mL/min >60 [facility] Comment on above: Non- GFR Calc Platelet mean volume Jose-Ec ker (Bld) [Entitic vol]Ordered By: Ivette Grimes on 12-06-2023 Platelet mean volume (Bld) [Entitic vol] 8.8 fL 6.2-12.0 [facility] RBC Auto (Bld) [#/Vol]Ordere d By: Ivette Grimes on 12-06-2023 RBC (Bld) [#/Vol] 4.30 10*6/uL 4.2-5.4 [facility] Serum or plasma calcium sharron urement (mass/volume)Ordered By: Ivette Grimes on 12-06-2023 Calcium [Mass/Vol] 9.1 mg/dL 8.5-10.1 [facility] Serum or plasma creatinine m easurement (mass/volume)Ordered By: Ivette Grimes on 12-06-2023 Creatinine [Mass/Vol] 0.89 mg/dL 0.55-1.02 [facility] Comment on above: The validity of the calculated GFR & GFRAA in patients over 70 years has not been determined. Clinical correlation is essential. Serum or plasma urea nitroge n measurement (mass/volume)Ordered By: Ivette Grimes on 12-06-2023 Urea nitrogen [Mass/Vol] 23 mg/dL 7-18 [facility] Thin prep Papanicolaou smear with manual screeningOrdered By: Ivette Grimes on 12-06-2023 Thin prep Papanicolaou smear with manual screening 4.1 g/dL 3.2-5.0 [facility] Thin prep Papanicolaou smear with manual screening 11 U/L 15-37 [facility] Thin prep Papanicolaou smear with manual screening 6 5-15 [facility] Whole blood hemoglobin A1c/t otal hemoglobin ratio (mass fraction)Ordered By: Ivette Grimes on 12-06-2023 HbA1c (Bld) [Mass fraction] 5.7 % 3.8-5.6 [facility] Comment on above: Normal < 5.7 % Predi abetic 5.7 - 6.4 % Diabetic >or= 6.5 % Please note range changes. Glucose Glucometer (BldC) [M ass/Vol]Ordered By: Sosa Mendez on 08-07-2023 Glucose [Mass/Vol] 157 mg/dL 74-106 [facility] Comment on above: MANAGEMENT OF PATIEN T CARE PER NURSING PROTOCOL Absolute lymphocyte countOrd ered By: Sosa Mendez on 08-06-2023 Lymphocytes Auto (Unsp spec) [#/Vol] 2.45 10*3/uL 0.83-4.51 [facility] Basophil percentageOrdered B y: Sosa Mendez on 08-06-2023 Basophils/100 WBC (Bld) 0.8 % 0-1 [facility] Chloride [Moles/Vol] 111 mmol/L 98-107 [facility] Cholesterol [Mass/Vol] 173 mg/dL <200 [facility] Comment on above: <200 mg/dL Desirable 200-240 mg/dL Borderline >240 mg/dL High Risk Eosinophils/100 WBC (Bld) 3.1 % 0-5 [facility] Glucose [Mass/Vol] 143 mg/dL 74-106 [facility] Comment on above: Fasting Glucose resu lt greater than or equal to 126 mg/dL suggests DIABETES MELLITUS per A.D.A. criteria. Neutrophils (Bld) [#/Vol] 3.9 10*3/uL 2.0-7.7 [facility] Neutrophils/100 WBC (Bld) 54.5 % 47-70 [facility] Potassium [Moles/Vol] 3.6 mmol/L 3.5-5.1 [facility] Sodium [Moles/Vol] 139 mmol/L 136-145 [facility] Triglyceride [Mass/Vol] 325 mg/dL <199 [facility] Comment on above: The drugs N-Acetylcy steine and Metamizole may falsely depress this assay.Serum Triglycerides Reference Interval Normal <150 mg/dL Borderline high 150 - 199 mg/dL High 200 - 499 mg/dL Very High > or = 500 mg/dL WBC (Bld) [#/Vol] 7.1 10*3/uL 4.4-11.0 [facility] Blood erythrocytes count (nu mber/volume)Ordered By: Sosa Mendez on 08-06-2023 RBC (Bld) [#/Vol] 4.15 10*6/uL 4.2-5.4 [facility] Blood hemoglobin measurement (mass/volume)Ordered By: Sosa Mendez on 08-06-2023 Hemoglobin (Bld) [Mass/Vol] 13.0 g/dL 12.0-15.0 [facility] Blood lymphocytes/100 leukoc ytesOrdered By: Sosa Mendez on 08-06-2023 Lymphocytes/100 WBC (Bld) 34.4 % 19-41 [facility] Blood monocytes/100 leukocyt esOrdered By: Sosa Mendez on 08-06-2023 Monocytes/100 WBC (Bld) 5.2 % 0-10 [facility] Blood platelet mean volumeOr dered By: Sosa Mendez on 08-06-2023 Platelet mean volume (Bld) [Entitic vol] 9.4 fL 6.2-12.0 [facility] Determination of erythrocyte mean corpuscular volume (MCV)Ordered By: Sosa Mendez on 08-06-2023 MCV (RBC) [Entitic vol] 95.4 fL 81-99 [facility] Hematocrit Auto (Bld) [Volum e fraction]Ordered By: Sosa Mendez on 08-06-2023 Hematocrit (Bld) [Volume fraction] 39.6 % 37-47 [facility] Laboratory - Chemistry and C hemistry - challengeOrdered By: Sosa Mendez on 08-06-2023 CO2 [Moles/Vol] 23.0 mmol/L 21.0-32.0 [facility] Urea nitrogen/Creatinine [Mass ratio] 15.4 mg/mg 10-20 [facility] Laboratory - Hematology and Cell countsOrdered By: Sosa Mendez on 08-06-2023 Erythrocyte distribution width (RBC) [Entitic vol] 45.4 fL 35.1-43.9 [facility] Erythrocyte distribution width (RBC) [Ratio] 13.0 % 11.6-14.6 [facility] Immature granulocytes/100 WBC (Bld) 2.000 % 0.0-0.9 [facility] Comment on above: IG% - Immature Granu locytes (promyelocytes, myelocytes and metamyelocytes) > 1% indicates that a LEFT SHIFT is Present. MCH (RBC) [Entitic mass] 31.3 pg 27.0-32.0 [facility] Nucleated RBC/100 WBC (Bld) [Ratio] 0 % 0-5 [facility] MCHC Auto (RBC) [Mass/Vol]Or dered By: Sosa Mendez on 08-06-2023 MCHC (RBC) [Mass/Vol] 32.8 g/dL 32-36 [facility] No Panel InformationOrdered By: Sosa Mendez on 08-06-2023 Estimated Creatinine Clearance Calc 92.30 ml/min [facility] Estimated GFR (MDRD) Amer 104 mL/min >60 [facility] Comment on above: GFR Calc Estimated GFR (MDRD) Non-Af Amer 86 mL/min >60 [facility] Comment on above: Non- GFR Calc Platelets bldOrdered By: Shanell Mendez on 08-06-2023 Platelets (Bld) [#/Vol] 184 10*3/uL 150-450 [facility] Serum or plasma calcium sharron urement (mass/volume)Ordered By: Sosa Mendez on 08-06-2023 Calcium [Mass/Vol] 8.2 mg/dL 8.5-10.1 [facility] Serum or plasma cholesterol in HDL measurement (mass/volume)Ordered By: Sosa Mendez on 08-06-2023 Cholesterol in HDL [Mass/Vol] 29 mg/dL >40 [facility] Comment on above: The drugs N-Acetylcy steine and Metamizole may falsely depress this assay. Reference Range HDL <40 mg/dL Low HDL Cholesterol HDL >or= 60 mg/dL High HDL Cholesterol Serum or plasma cholesterol in VLDL measurement (mass/volume)Ordered By: Sosa Mendez on 08-06-2023 Cholesterol in VLDL [Mass/Vol] 65 mg/dL 5-40 [facility] Serum or plasma creatinine m easurement (mass/volume)Ordered By: Sosa Mendez on 08-06-2023 Creatinine [Mass/Vol] 0.78 mg/dL 0.55-1.02 [facility] Comment on above: The validity of the calculated GFR & GFRAA in patients over 70 years has not been determined. Clinical correlation is essential. Serum or plasma low density lipoprotein (LDL) cholesterol measurement (mass/volume)Ordered By: Sosa Mendez on 08-06-2023 Cholesterol in LDL [Mass/Vol] 79 mg/dL 0-130 [facility] Serum or plasma urea nitroge n measurement (mass/volume)Ordered By: Sosa Mendez on 08-06-2023 Urea nitrogen [Mass/Vol] 12 mg/dL 7-18 [facility] Thin prep Papanicolaou smear with manual screeningOrdered By: Sosa Mendez on 08-06-2023 Thin prep Papanicolaou smear with manual screening 5 5-15 [facility] Absolute lymphocyte countOrd ered By: Niurka Kendall on 08-05-2023 Lymphocytes Auto (Unsp spec) [#/Vol] 2.33 10*3/uL 0.83-4.51 [facility] Basophil percentageOrdered B y: Niurka Kendall on 08-05-2023 Basophils/100 WBC (Bld) 0.9 % 0-1 [facility] Chloride [Moles/Vol] 110 mmol/L 98-107 [facility] Eosinophils/100 WBC (Bld) 2.6 % 0-5 [facility] Glucose [Mass/Vol] 108 mg/dL 74-106 [facility] Comment on above: Fasting Glucose resu lt from 100 to 125 mg/dL suggests IMPAIRED HOMEOSTASIS per A.D.A. criteria. Neutrophils (Bld) [#/Vol] 4.7 10*3/uL 2.0-7.7 [facility] Neutrophils/100 WBC (Bld) 59.9 % 47-70 [facility] Potassium [Moles/Vol] 3.7 mmol/L 3.5-5.1 [facility] Sodium [Moles/Vol] 140 mmol/L 136-145 [facility] WBC (Bld) [#/Vol] 7.8 10*3/uL 4.4-11.0 [facility] Blood erythrocytes count (nu mber/volume)Ordered By: Niurka Kendall on 08-05-2023 RBC (Bld) [#/Vol] 4.04 10*6/uL 4.2-5.4 [facility] Blood hemoglobin measurement (mass/volume)Ordered By: Niurka Kendall on 08-05-2023 Hemoglobin (Bld) [Mass/Vol] 12.9 g/dL 12.0-15.0 [facility] Blood lymphocytes/100 leukoc ytesOrdered By: Niurka Kendall on 08-05-2023 Lymphocytes/100 WBC (Bld) 30.1 % 19-41 [facility] Blood monocytes/100 leukocyt esOrdered By: Niurka Kendall on 08-05-2023 Monocytes/100 WBC (Bld) 5.2 % 0-10 [facility] Blood platelet mean volumeOr dered By: Niurka Kendall on 08-05-2023 Platelet mean volume (Bld) [Entitic vol] 9.7 fL 6.2-12.0 [facility] COVID-19 virus antigen assay Ordered By: Niurka Kendall on 08-05-2023 SARS-CoV-2 (COVID-19) Ag IA.rapid Ql (Resp) [facility] SARS-CoV-2 (COVID-19) Ag IA.rapid Ql (Resp) [facility] Determination of erythrocyte mean corpuscular volume (MCV)Ordered By: Niurka Kendall on 08-05-2023 MCV (RBC) [Entitic vol] 97.8 fL 81-99 [facility] Glucose Glucometer (BldC) [M ass/Vol]Ordered By: Niurka Kendall on 08-05-2023 Glucose [Mass/Vol] 120 mg/dL 74-106 [facility] Comment on above: MANAGEMENT OF PATIEN T CARE PER NURSING PROTOCOL Hematocrit Auto (Bld) [Volum e fraction]Ordered By: Niurka Kendall on 08-05-2023 Hematocrit (Bld) [Volume fraction] 39.5 % 37-47 [facility] INR in Blood by Coagulation assayOrdered By: Niurka Kendall on 08-05-2023 INR Coag (Bld) [Relative time] 1.1 {INR} [facility] Laboratory - Chemistry and C hemistry - challengeOrdered By: Niurka Kendall on 08-05-2023 CO2 [Moles/Vol] 24.0 mmol/L 21.0-32.0 [facility] Urea nitrogen/Creatinine [Mass ratio] 20.8 mg/mg 10-20 [facility] Laboratory - CoagulationOrde red By: Niurka Kendall on 08-05-2023 aPTT Coag (Bld) [Time] 32.7 s 24.1-36.2 [facility] PT Coag (PPP) [Time] 14.4 s 11.7-14.9 [facility] Laboratory - Hematology and Cell countsOrdered By: Niurka Kendall on 08-05-2023 Erythrocyte distribution width (RBC) [Entitic vol] 47.0 fL 35.1-43.9 [facility] Erythrocyte distribution width (RBC) [Ratio] 13.1 % 11.6-14.6 [facility] Immature granulocytes/100 WBC (Bld) 1.300 % 0.0-0.9 [facility] Comment on above: IG% - Immature Granu locytes (promyelocytes, myelocytes and metamyelocytes) > 1% indicates that a LEFT SHIFT is Present. MCH (RBC) [Entitic mass] 31.9 pg 27.0-32.0 [facility] Nucleated RBC/100 WBC (Bld) [Ratio] 0 % 0-5 [facility] ([facility]BC) [Mass/Vol]Or dered By: Niurka Kendall on 08-05-2023 MCHC (RBC) [Mass/Vol] 32.7 g/dL 32-36 [facility] No Panel InformationOrdered By: Niurka Kendall on 08-05-2023 Estimated Creatinine Clearance Calc 99.99 ml/min [facility] Estimated GFR (MDRD) Amer 115 mL/min >60 [facility] Comment on above: GFR Calc Estimated GFR (MDRD) Non-Af Amer 95 mL/min >60 [facility] Comment on above: Non- GFR Calc Thyroid Stimulating Hormone (TSH) 1.54 uIU/mL 0.358-3.74 [facility] Troponin I High Sensitivity 4 pg/mL 3.0-54.0 [facility] Comment on above: Please Note: New Ananth t Units and Gender Specific Reference Ranges. For more information see Policy Stat Procedure [place] High Sensitivity Troponin (TNIH) and attachments. Platelets bldOrdered By: Romina Kendall on 08-05-2023 Platelets (Bld) [#/Vol] 190 10*3/uL 150-450 [facility] Serum or plasma calcium sharron urement (mass/volume)Ordered By: Niurka Kendall on 08-05-2023 Calcium [Mass/Vol] 8.5 mg/dL 8.5-10.1 [facility] Serum or plasma creatinine m easurement (mass/volume)Ordered By: Niurka Kendall on 08-05-2023 Creatinine [Mass/Vol] 0.72 mg/dL 0.55-1.02 [facility] Comment on above: The validity of the calculated GFR & GFRAA in patients over 70 years has not been determined. Clinical correlation is essential. Serum or plasma urea nitroge n measurement (mass/volume)Ordered By: Niurka Kendall on 08-05-2023 Urea nitrogen [Mass/Vol] 15 mg/dL 7-18 [facility] Thin prep Papanicolaou smear with manual screeningOrdered By: Niurka Kendall on 08-05-2023 Thin prep Papanicolaou smear with manual screening 6 5-15 [facility] Whole blood hemoglobin A1c/t otal hemoglobin ratio (mass fraction)Ordered By: Sosakarla Mendez on 08-05-2023 HbA1c (Bld) [Mass fraction] 6.6 % 3.8-5.6 [facility] Comment on above: Normal < 5.7 % Predi abetic 5.7 - 6.4 % Diabetic >or= 6.5 % Please note range changes. XR Foot - right AP and Later al and obliqueon 05-28-2023 IMPRESSION: No acute osseous abnormalities are identified. Calcaneal spurring. Supervisor [facility]: [facility] Transcribe Date/Time: May 28 2023 11:55A Dictated by : BRITTANY MCCANN MD This examination was interpreted and the report reviewed and electronically signed by: BRITTANY MCCANN MD on May 28 2023 11:56AM [facility] DIVISION OF RADIOLOGY * * *Final Report* [...] and calcaneal enthesophytes. DIVISION OF RADIOLOGY Provider, [facility] [place] - 05/28/2023 * * *Final Report* * [...] acute osseous abnormalities are identified. Calcaneal spurring. Supervisor [facility]: [facility] Transcribe Date/Time: May 28 2023 11:55A Dictated by : BRITTANY MCCANN MD This examination was interpreted and the report reviewed and electronically signed by: BRITTANY MCCANN MD on May 28 2023 11:56AM EST [facility] Radiology Study observation (narrative) [facility] XR Foot - right AP and Later al and obliqueOrdered By: [facility] Provider on 05-28-2023 [facility] Absolute lymphocyte countOrd ered By: Dr. Grimes on 03-04-2023 Lymphocytes Auto (Unsp spec) [#/Vol] 2.34 10*3/uL 0.83-4.51 [facility] Basophil percentageOrdered B y: Dr. Grimes on 03-04-2023 Basophils/100 WBC (Bld) 1.0 % 0-1 [facility] Chloride [Moles/Vol] 109 mmol/L 98-107 [facility] Eosinophils/100 WBC (Bld) 2.3 % 0-5 [facility] Glucose [Mass/Vol] 142 mg/dL 74-106 [facility] Comment on above: Fasting Glucose resu lt greater than or equal to 126 mg/dL suggests DIABETES MELLITUS per A.D.A. criteria. Neutrophils (Bld) [#/Vol] 5.6 10*3/uL 2.0-7.7 [facility] Neutrophils/100 WBC (Bld) 63.9 % 47-70 [facility] Potassium [Moles/Vol] 3.9 mmol/L 3.5-5.1 [facility] Sodium [Moles/Vol] 138 mmol/L 136-145 [facility] WBC (Bld) [#/Vol] 8.8 10*3/uL 4.4-11.0 [facility] Blood erythrocytes count (nu mber/volume)Ordered By: Dr. Grimes on 03-04-2023 RBC (Bld) [#/Vol] 4.38 10*6/uL 4.2-5.4 [facility] Blood hemoglobin measurement (mass/volume)Ordered By: Dr. Grimes on 03-04-2023 Hemoglobin (Bld) [Mass/Vol] 14.1 g/dL 12.0-15.0 [facility] Blood lymphocytes/100 leukoc ytesOrdered By: Dr. Grimes on 03-04-2023 Lymphocytes/100 WBC (Bld) 26.5 % 19-41 [facility] Blood monocytes/100 leukocyt esOrdered By: Dr. Grimes on 03-04-2023 Monocytes/100 WBC (Bld) 4.6 % 0-10 [facility] Blood platelet mean volumeOr dered By: Dr. Grimes on 03-04-2023 Platelet mean volume (Bld) [Entitic vol] 9.5 fL 6.2-12.0 [facility] Determination of erythrocyte mean corpuscular volume (MCV)Ordered By: Dr. Grimes on 03-04-2023 MCV (RBC) [Entitic vol] 96.8 fL 81-99 [facility] Hematocrit Auto (Bld) [Volum e fraction]Ordered By: Dr. Grimes on 03-04-2023 Hematocrit (Bld) [Volume fraction] 42.4 % 37-47 [facility] Iron measurement (mass/mass) Ordered By: Dr. Grimes on 03-04-2023 Iron (Unsp spec) [Mass/Mass] 92 ug/dL 50-170 [facility] Laboratory - Chemistry and C hemistry - challengeOrdered By: Dr. Grimes on 03-04-2023 CO2 [Moles/Vol] 21.0 mmol/L 21.0-32.0 [facility] Magnesium [Mass/Vol] 1.7 mg/dL 1.6-2.6 [facility] Urea nitrogen/Creatinine [Mass ratio] 17.1 mg/mg 10-20 [facility] Laboratory - Hematology and Cell countsOrdered By: Dr. Grimes on 03-04-2023 Erythrocyte distribution width (RBC) [Entitic vol] 48.1 fL 35.1-43.9 [facility] Erythrocyte distribution width (RBC) [Ratio] 13.3 % 11.6-14.6 [facility] Immature granulocytes/100 WBC (Bld) 1.700 % 0.0-0.9 [facility] Comment on above: IG% - Immature Granu locytes (promyelocytes, myelocytes and metamyelocytes) > 1% indicates that a LEFT SHIFT is Present. MCH (RBC) [Entitic mass] 32.2 pg 27.0-32.0 [facility] Nucleated RBC/100 WBC (Bld) [Ratio] 0 % 0-5 [facility] Auto (RBC) [Mass/Vol]Or dered By: Dr. Grimes on 03-04-2023 MCHC (RBC) [Mass/Vol] 33.3 g/dL 32-36 [facility] No Panel InformationOrdered By: Dr. Grimes on 03-04-2023 Urine Microalbumin/Creatinine Ratio 63.0 mg/g CRE <30 [facility] Estimated GFR (MDRD) Amer 99 mL/min >60 [facility] Comment on above: GFR Calc Estimated GFR (MDRD) Non-Af Amer 82 mL/min >60 [facility] Comment on above: Non- GFR Calc Total Iron Binding Capacity 323 ug/dL 250-450 [facility] Platelets bldOrdered By: Dr. Grimes on 03-04-2023 Platelets (Bld) [#/Vol] 214 10*3/uL 150-450 [facility] Serum or plasma calcium sharron urement (mass/volume)Ordered By: Dr. Grimes on 03-04-2023 Calcium [Mass/Vol] 8.4 mg/dL 8.5-10.1 [facility] Serum or plasma creatinine m easurement (mass/volume)Ordered By: Dr. Grimes on 03-04-2023 Creatinine [Mass/Vol] 0.82 mg/dL 0.55-1.02 [facility] Comment on above: The validity of the calculated GFR & GFRAA in patients over 70 years has not been determined. Clinical correlation is essential. Serum or plasma iron saturat ion measurement (mass fraction)Ordered By: Dr. Grimes on 03-04-2023 Iron saturation [Mass fraction] 28.5 % 15.0-55.0 [facility] Serum or plasma urea nitroge n measurement (mass/volume)Ordered By: Dr. Grimes on 03-04-2023 Urea nitrogen [Mass/Vol] 14 mg/dL 7-18 [facility] Thin prep Papanicolaou smear with manual screeningOrdered By: Dr. Grimes on 03-04-2023 Thin prep Papanicolaou smear with manual screening 133.0 mg/L NO RANGE EST. [facility] Thin prep Papanicolaou smear with manual screening 8 5-15 [facility] Urine creatinine measurement (mass/volume)Ordered By: Dr. Grimes on 03-04-2023 Creatinine (U) [Mass/Vol] 211.00 mg/dL NO RANGE EST. [facility] Whole blood hemoglobin A1c/t otal hemoglobin ratio (mass fraction)Ordered By: Dr. Grimes on 03-04-2023 HbA1c (Bld) [Mass fraction] 6.1 % 3.8-5.6 [facility] Comment on above: Normal < 5.7 % Predi abetic 5.7 - 6.4 % Diabetic >or= 6.5 % Please note range changes. No Panel Informationon 02-28 [facility] CNCOon 01-24-2023 CNCO Letter Text Normal [facility] CNOVon 01-24-2023 CNOV Office Visit (SPAGWO) ---- GRAYCASSANDRAJUDAH Love ([id number]) 1980 F Date Time Provider Department 01/24/23 10:30 AM ELLE SANCHEZ During your visit today, we recorded the following information about you: Pulse Respiration Last Period 64/minute 16/minute 01/02/23 Elle Sanchez MD 01/24/2023 11:07 AM Signed [facility] Name: Tori Gray : 1980 Purpose: Follow-up, discuss SPRINT Today's Date: 01/24/2023 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 Normal [facility] Hany 01-24-2023 [facility] Telephone (SPAGWO) ---- TORI GRAY ([id number]) 1980 F Date Time Provider Department 01/24/23 ELLE SANCHEZ During your visit today, we [...] by INTRAUTERINE route as directed. - Ipratropium Milton (ATROVENT) 0.03 % nasal spray Use 2 Sprays in the nose every 12 hours. - metroNIDAZOLE (METROGEL) 0.75 % Topical Gel Apply to affected area twice daily. - [place]-3 Fatty Acids (FISH OIL) 500 mg cap Take 1 capsule by mouth once daily. - blood sugar diagnostic (BLOOD GLUCOSE TEST) test strip Test blood sugar(s) 1 times daily. Dx: Type 2 DM - Controlled E11.9 Insulin: Yes - Lancets lancets Test blood sugar(s) 1 times daily. Dx: Type 2 DM - Controlled E11.9 Insulin: No - Tuvfizuc-So-Vzj-Fe- FA tab Take 1 tablet by mouth [...] 01/23/2010 Routine general medical examination at a [facility]*01/23/2010 12/06/2012 Class: Chronic Routine gynecological examination [Z01.419] 01/23/2010 02/22/2014 Class: Chronic Morbid Obesity [E66.01] 01/23/2010 Lumbar Disc Disorder [M51.9] 02/16/2010 (more content not included)... Normal [facility] HCG ( test) Ql (U)o n 01-02-2023 Specific gravity (U) [Rel density] 1.010 Normal 1.005-1.030 [facility] Comment on above: Order Comment: Speci men Type: URINE SPECIMENOrdering Facility: [facility] [address] [place] [address] Performed By: #### 2 106-3 ####[facility] LODI LABCLIA [id number] [place] [address] [place] HCG Preg Ur Qlon 01-02-2023 HCG ( test) Ql (U) Negative Normal Negative [facility] Comment on above: Order Comment: Speci men Type: URINE SPECIMENOrdering Facility: [facility] Address: [address], [place] [address] Result Comment: This test is intended to aid in the early detection of . Very dilute urine samples, as indicated by a low specific gravity, may not contain professional healthcare representative levels of hCG. This test detects [...] for . Performed By: #### 2 106-3 ####[facility] LABCLIA [id number] [place] [address] [facility] HISTORY PHYSICALon HISTORY PHYSICAL HNO ID: [id number] Author: Elle Sanchez MD Service: Pain Management [...] 1/2 hr before meal. Unknown Yes Ipratropium Milton (ATROVENT) 0.03 % nasal spray Use 2 Sprays in the nose every 12 hours. Unknown Yes [place]-3 Fatty Acids (FISH OIL) 500 mg cap Take 1 capsule by mouth once daily. Patient taking differently: Take 1 tablet by mouth once daily. 1200 mg 01/02/2023 Yes blood sugar diagnostic (BLOOD GLUCOSE TEST) test strip Test blood sugar(s) 1 times daily. Dx: Type 2 DM - Controlled E11.9 Insulin: Yes Yes Xiuqtefw-Xi-Iko-Fe- FA tab Take 1 tablet by mouth [...] January 02, 2023 TIME: 11:00 AM [facility] OPERATIVE NOon 01-02-2023 OPERATIVE NO HNO ID: [id number] Author: Elle Sanchez MD Service: Pain Management Author Type: Physician Type: Operative Report Filed: 01/02/2023 11:29 AM Note Text: OPERATIVE/PROCEDURE REPORT LOG ID: [id number] SURGERY/PROCEDURE DATE: 01/02/2023 INCISION/PROCEDURE START TIME: 11:18 AM INCISION CLOSE/PROCEDURE END TIME: 11:25 AM SURGEON(S)/PROCEDBRYSON WEST(S) AND LIFELINE 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S(S): Surgeon(s) and Role: * Elle Sanchez MD [...] SIGNATURE: Elle Sanchez MD PATIENT NAME: Tori Love Isaac DATE: January 02, 2023 TIME: 11:28 AM [facility] 11-29-2022 [facility] Telephone (AGSPINE3) ---- TORI GRAY ([id number]) 1980 F Date Time Provider Department 11/29/22 ELLE SANCHEZ AGSPINE3 During your visit today, we recorded the following information about you: Darrion Carson 11/29/2022 2:40 PM Signed Patient has left a voicemail stating that she had fallen over the weekend and has a concussion. She is wondering if she should reschedule her appointment for 12/05/22 with you in [place] as she is not sure if this [...] to reschedule out to January 02 at [place], message has been sent to [place]. Darrion Shah Allergies As of Date: 11/29/2022 Noted Allergy Reaction LIDOCAINE 12/24/2019 4 - Hives STEROIDS (BETAMETHASONE DIPROPION* 2 4 - Hives Date Reviewed: 11/27/2022 Reviewed by: Dennise Robles - Fully Assessed Reason for Visit: Patient Question [1477] Cmt: [place] appointment on 12/05/22 Prescriptions as of 11/30/2022 [...] by INTRAUTERINE route as directed. - Ipratropium Milton (ATROVENT) 0.03 % nasal spray Use 2 Sprays in the nose every 12 hours. - metroNIDAZOLE (METROGEL) 0.75 % Topical Gel Apply to affected area twice daily. - [place]-3 Fatty Acids (FISH OIL) 500 mg cap Take 1 capsule by mouth once daily. - blood sugar diagnostic (BLOOD GLUCOSE TEST) test strip Test blood sugar(s) 1 times daily. Dx: Type 2 DM - Controlled E11.9 Insulin: Yes - Lancets lancets Test blood sugar(s) 1 times daily. Dx: Type 2 DM - Controlled E11.9 Insulin: No - Qznvkver-Pz-Wta-Fe- FA tab Take 1 tablet by mouth [...] 02/16/2010 Routine general medical examination at a [facility]*12/06/2012 02/22/2014 Anxiety [F41.9] 06/07/2014 Type [...] 04/17/2022 09/04/2022 (more content not included)... Normal [facility] Glucose Glucometer (BldC) [M ass/Vol]Ordered By: Dr. Shabazz on 11-24-2022 Glucose [Mass/Vol] 89 mg/dL 74-106 [facility] Comment on above: MANAGEMENT OF PATIEN T CARE PER NURSING PROTOCOL CNOVon 11-08-2022 CNOV Office Visit (SPAGWO) ---- ISAACTORI Love ([id number]) 1980 F Date Time Provider Department 11/08/22 [...] The patient is not nervous/anxious. Adelina Mason, THOM.POLYGRAPH EXAMINER 11/08/2022 1:55 PM Signed [facility] Today's Date: 11/08/2022 Last Visit: 07/19/22 Name: Tori Gray : 1980 Chief complaint: LEFT shoulder pain History of Present Illness: Since last encounter, Tori Ivan Isaac; reports that the chronic problem(s) detailed above [...] activity was identified. 11/08/2022 by Adelina Mason APRN.POLYGRAPH EXAMINER Allergies: ALLERGIES Allergen Reactions Lidocaine Hives Steroids [...] No vis (more content not included)... Normal [facility] CNPNon 11-08-2022 CNPN Telephone (SPAGWO) ---- TORI GRAY ([id number]) 1980 F Date Time Provider Department 11/08/22 ELLE SANCHEZ SPAIntegenXWO During your visit today, we recorded the [...] No 9. Does this procedure require a local truck driver? Yes If yes, has patient been notified that a local truck driver is needed and must be present [...] Date Reviewed: 11/08/2022 Reviewed by: Adelina Mason APRN.POLYGRAPH EXAMINER - Fully Assessed Reason for Visit: Injections [...] by INTRAUTERINE route as directed. - Ipratropium Milton (ATROVENT) 0.03 % nasal spray Use 2 Sprays in the nose every 12 hours. - metroNIDAZOLE (METROGEL) 0.75 % Topical Gel Apply to affected area twice daily. - [place]-3 Fatty Acids (FISH OIL) 500 mg cap Take 1 capsule by mouth once daily. - blood sugar diagnostic (BLOOD GLUCOSE TEST) test strip Test blood sugar(s) 1 times daily. Dx: Type 2 DM - Controlled E11.9 Insulin: Yes - Lancets lancets Test blood sugar(s) 1 times daily. Dx: Type 2 DM - Controlled E11.9 Insulin: No - Yfkwimdt-Ln-Ynx-Fe- FA tab Take 1 tablet by mouth [...] 01/23/2010 Routine general medical examination at a [facility]*01/23/2010 12/06/2012 Class: Chronic Routine gynecological examination [Z01.419] 01/23/2010 02/22/2014 Class: Chronic Morbid Obesity [E66.01] 01/23/2010 Lumbar (more content not included)... Normal [facility] Hany 10-02-2022 CNPN Telephone (AGSPINE2) ---- TORI GRAY ([id number]) 1980 F Date Time Provider Department 10/02/22 [...] spoke with and scheduled with Adelina in [place] beginning of the year. Adriana Licona Allergies As of Date: 10/02/2022 Noted Allergy Reaction LIDOCAINE 12/24/2019 4 - Hives STEROIDS (BETAMETHASONE DIPROPION* 2 4 - Hives Date Reviewed: 09/04/2022 Reviewed by: Dennise Robles - Fully Assessed Reason for Visit: Appointment [[id number]] Patient Question [3320] Prescriptions as of 10/02/2022 - tiZANidine (ZANAFLEX) [...] bed with current PAP mask. - Ipratropium Milton (ATROVENT) 0.03 % nasal spray Use 2 Sprays in the nose every 12 hours. - metroNIDAZOLE (METROGEL) 0.75 % Topical Gel Apply to affected area twice daily. - [place]-3 Fatty Acids (FISH OIL) 500 mg cap Take 1 capsule by mouth once daily. - blood sugar diagnostic (BLOOD GLUCOSE TEST) test strip Test blood sugar(s) 1 times daily. Dx: Type 2 DM - Controlled E11.9 Insulin: Yes - Lancets lancets Test blood sugar(s) 1 times daily. Dx: Type 2 DM - Controlled E11.9 Insulin: No - Rzbonekg-Dz-Xih-Fe- FA tab Take 1 tablet by mouth [...] 01/23/2010 Routine general medical examination at a [facility]*01/23/2010 12/06/2012 Class: Chronic Routine gynecological examination [Z01.419] 01/23/2010 02/22/2014 Class: Chronic Morbid Obesity [E66.01] 01/23/2010 Lumbar Disc Disorder [M51.9] 02/16/2010 Routine general medical examination at a [facility]*12/06/2012 02/22/2014 Anxiety [F41.9] 06/07/2014 Type [...] [R20.0] 12/ (more content not included)... [facility] Absolute lymphocyte countOrd ered By: Dr. Grimes on 09-06-2022 Lymphocytes Auto (Unsp spec) [#/Vol] 2.67 10*3/uL 0.83-4.51 [facility] Basophil percentageOrdered B y: Dr. Grimes on 09-06-2022 Basophils/100 WBC (Bld) 0.5 % 0-1 [facility] Chloride [Moles/Vol] 110 mmol/L 98-107 [facility] Eosinophils/100 WBC (Bld) 2.1 % 0-5 [facility] Glucose [Mass/Vol] 120 mg/dL 74-106 [facility] Comment on above: Fasting Glucose resu lt from 100 to 125 mg/dL suggests IMPAIRED HOMEOSTASIS per A.D.A. criteria. Neutrophils (Bld) [#/Vol] 6.2 10*3/uL 2.0-7.7 [facility] Neutrophils/100 WBC (Bld) 64.2 % 47-70 [facility] Potassium [Moles/Vol] 3.6 mmol/L 3.5-5.1 [facility] Sodium [Moles/Vol] 139 mmol/L 136-145 [facility] WBC (Bld) [#/Vol] 9.6 10*3/uL 4.4-11.0 [facility] Blood erythrocytes count (nu mber/volume)Ordered By: Dr. Grimes on 09-06-2022 RBC (Bld) [#/Vol] 4.29 10*6/uL 4.2-5.4 [facility] Blood hemoglobin measurement (mass/volume)Ordered By: Dr. Grimes on 09-06-2022 Hemoglobin (Bld) [Mass/Vol] 13.6 g/dL 12.0-15.0 [facility] Blood lymphocytes/100 leukoc ytesOrdered By: Dr. Grimes on 09-06-2022 Lymphocytes/100 WBC (Bld) 27.8 % 19-41 [facility] Blood monocytes/100 leukocyt esOrdered By: Dr. Grimes on 09-06-2022 Monocytes/100 WBC (Bld) 4.3 % 0-10 [facility] Blood platelet mean volumeOr dered By: Dr. Grimes on 09-06-2022 Platelet mean volume (Bld) [Entitic vol] 9.6 fL 6.2-12.0 [facility] Determination of erythrocyte mean corpuscular volume (MCV)Ordered By: Dr. Grimes on 09-06-2022 MCV (RBC) [Entitic vol] 90.2 fL 81-99 [facility] Hematocrit Auto (Bld) [Volum e fraction]Ordered By: Dr. Grimes on 09-06-2022 Hematocrit (Bld) [Volume fraction] 38.7 % 37-47 [facility] Laboratory - Chemistry and C hemistry - challengeOrdered By: Dr. Grimes on 09-06-2022 CO2 [Moles/Vol] 23.0 mmol/L 21.0-32.0 [facility] Urea nitrogen/Creatinine [Mass ratio] 15.9 mg/mg 10-20 [facility] Laboratory - Hematology and Cell countsOrdered By: Dr. Grimes on 09-06-2022 Erythrocyte distribution width (RBC) [Entitic vol] 42.5 fL 35.1-43.9 [facility] Erythrocyte distribution width (RBC) [Ratio] 12.9 % 11.6-14.6 [facility] Immature granulocytes/100 WBC (Bld) 1.100 % 0.0-0.9 [facility] Comment on above: IG% - Immature Granu locytes (promyelocytes, myelocytes and metamyelocytes) > 1% indicates that a LEFT SHIFT is Present. MCH (RBC) [Entitic mass] 31.7 pg 27.0-32.0 [facility] Nucleated RBC/100 WBC (Bld) [Ratio] 0 % 0-5 [facility] Auto (RBC) [Mass/Vol]Or dered By: Dr. Grimes on 09-06-2022 MCHC (RBC) [Mass/Vol] 35.1 g/dL 32-36 [facility] No Panel InformationOrdered By: Dr. Grimes on 09-06-2022 Estimated GFR (MDRD) Amer 100 mL/min >60 [facility] Comment on above: GFR Calc Estimated GFR (MDRD) Non-Af Amer 82 mL/min >60 [facility] Comment on above: Non- GFR Calc Thyroid Stimulating Hormone (TSH) 1.56 uIU/mL 0.358-3.74 [facility] Platelets bldOrdered By: Dr. Grimes on 09-06-2022 Platelets (Bld) [#/Vol] 190 10*3/uL 150-450 [facility] Serum or plasma calcium sharron urement (mass/volume)Ordered By: Dr. Grimes on 09-06-2022 Calcium [Mass/Vol] 8.7 mg/dL 8.5-10.1 [facility] Serum or plasma creatinine m easurement (mass/volume)Ordered By: Dr. Grimes on 09-06-2022 Creatinine [Mass/Vol] 0.82 mg/dL 0.55-1.02 [facility] Comment on above: The validity of the calculated GFR & GFRAA in patients over 70 years has not been determined. Clinical correlation is essential. Serum or plasma urea nitroge n measurement (mass/volume)Ordered By: Dr. Grimes on 09-06-2022 Urea nitrogen [Mass/Vol] 13 mg/dL 7-18 [facility] Thin prep Papanicolaou smear with manual screeningOrdered By: Dr. Grimes on 09-06-2022 Thin prep Papanicolaou smear with manual screening 6 5-15 [facility] Laboratory - Chemistry and C hemistry - challengeOrdered By: Dr. Guerrero on 08-29-2022 Magnesium [Mass/Vol] 1.7 mg/dL 1.6-2.6 [facility] Basophil percentageOrdered B y: Dr. Grimes on 08-08-2022 Cholesterol [Mass/Vol] 168 mg/dL <200 [facility] Comment on above: <200 mg/dL Desirable 200-240 mg/dL Borderline >240 mg/dL High Risk Triglyceride [Mass/Vol] 176 mg/dL <199 [facility] Comment on above: The drugs N-Acetylcy steine and Metamizole may falsely depress this assay.Serum Triglycerides Reference Interval Normal <150 mg/dL Borderline high 150 - 199 mg/dL High 200 - 499 mg/dL Very High > or = 500 mg/dL Hany 08-08-2022 G[facility]RIELAN Telephone (AGSPHWG) ---- TORI GRAY ([id number]) 1980 F Date Time Provider Department 08/08/22 ADELINA MASON AGSPHiLamG During your visit today, we recorded the [...] Date Reviewed: 07/19/2022 Reviewed by: Karen Bansal APRN.CNP - Fully Assessed Reason for Visit: Patient [...] bed with current PAP mask. - Ipratropium Milton (ATROVENT) 0.03 % nasal spray Use 2 Sprays in the nose every 12 hours. - metroNIDAZOLE (METROGEL) 0.75 % Topical Gel Apply to affected area twice daily. - [place]-3 Fatty Acids (FISH OIL) 500 mg cap Take 1 capsule by mouth once daily. - blood sugar diagnostic (BLOOD GLUCOSE TEST) test strip Test blood sugar(s) 1 times daily. Dx: Type 2 DM - Controlled E11.9 Insulin: Yes - Lancets lancets Test blood sugar(s) 1 times daily. Dx: Type 2 DM - Controlled E11.9 Insulin: No - Visbhrqb-Wl-Zdv-Fe- FA tab Take 1 tablet by mouth [...] 05/06/2009 01/23/2010 Routine general medical examination at [facility]*01/23/2010 12/06/2012 Class: Chronic Routine gynecological examination [Z01.419] 01/23/2010 02/22/2014 Class: Chronic Morbid Obesity [E66.01] 01/23/2010 Lumbar Disc Disorder [M51.9] 02/16/2010 Routine general medical examination at [facility]*12/06/2012 02/22/2014 Anxiety [F41.9] 06/07/2014 Type 2 diabetes mellitus with microalbuminuria,*0 07/04/2018 Fatty liver [K76.0] 07/21/2018 LETITIA (obstructive sleep apnea) [G47.33] 07/21/2018 Microalbuminuria [R80.9] 09/30/2018 Obesity, Class III, BMI >= 40 [E66.01] 11/26/2019 Prolonged Q-T interval on ECG [R94.31] 03/31/2020 Encounter Status:Closed by ADELINA MASON on 08/08/22 [facility] No Panel InformationOrdered By: Dr. Grimes on 08-08-2022 Thyroid Stimulating Hormone (TSH) 3.38 uIU/mL 0.358-3.74 [facility] Serum or plasma cholesterol in HDL measurement (mass/volume)Ordered By: Dr. Grimes on 08-08-2022 Cholesterol in HDL [Mass/Vol] 37 mg/dL >40 [facility] Comment on above: The drugs N-Acetylcy steine and Metamizole may falsely depress this assay. Reference Range HDL <40 mg/dL Low HDL Cholesterol HDL >or= 60 mg/dL High HDL Cholesterol Serum or plasma cholesterol in VLDL measurement (mass/volume)Ordered By: Dr. Grimes on 08-08-2022 Cholesterol in VLDL [Mass/Vol] 35 mg/dL 5-40 [facility] Serum or plasma low density lipoprotein (LDL) cholesterol measurement (mass/volume)Ordered By: Dr. Grimes on 08-08-2022 Cholesterol in LDL [Mass/Vol] 96 mg/dL 0-130 [facility] Whole blood hemoglobin A1c/t otal hemoglobin ratio (mass fraction)Ordered By: Dr. Grimes on 08-08-2022 HbA1c (Bld) [Mass fraction] 5.3 % 3.8-5.6 [facility] Comment on above: Normal < 5.7 % Predi abetic 5.7 - 6.4 % Diabetic >or= 6.5 % Please note range changes. CNCOon 07-19-2022 CNCO Letter Text Normal [facility] CNOVon 07-19-2022 CNOV Office Visit (ESDRASGWO) ---- TORI GRAY ([id number]) 1980 F Date Time Provider Department 07/19/22 [...] The patient is not nervous/anxious. Adelina Mason APRN.POLYGRAPH EXAMINER 07/19/2022 10:17 AM Signed [facility] Today's Date: 07/19/2022 Last Visit: 05/24/22 Name: Tori Gray : 1980 Purpose: Established Patient Encounter Interval History: Since last encounter, Tori Love Isaac; reports that the chronic problem(s) of LEFT [...] (A) 74 - 99 mg/dL Final Comment: Location:[facility], [address] [place] [address], [facility] The Accu-Chek Inform II glucose meter has [...] activity was identified. 07/19/2022 by Adelina Mason APRN.[facility] Last Drug screen: Not Applicable Risk Assessment: VAHE-7: (more content not included)... Normal [facility] CNPNon 07-19-2022 G[facility] Telephone (SPAGWO) ---- TORI GRAY ([id number]) 1980 F Date Time Provider Department 07/19/22 [...] year? Yes If yes, When and Where? [facility], currently attending (Medical Records Release needs to [...] their 2nd dose of the COVID vaccine.) Lisashayy Lidia Allergies As of Date: 07/19/2022 Noted Allergy Reaction LIDOCAINE 12/24/2019 4 - Hives STEROIDS (BETAMETHASONE DIPROPION* 4 - Hives Date Reviewed: 07/19/2022 Reviewed by: Adelina Mason APRN.POLYGRAPH EXAMINER - Fully Assessed Reason for Visit: Patient [...] bed with current PAP mask. - Ipratropium Milton (ATROVENT) 0.03 % nasal spray Use 2 Sprays in the nose every 12 hours. - metroNIDAZOLE (METROGEL) 0.75 % Topical Gel Apply to affected area twice daily. - [place]-3 Fatty Acids (FISH OIL) 500 mg cap Take 1 capsule by mouth once daily. - blood sugar diagnostic (BLOOD GLUCOSE TEST) test strip Test blood sugar(s) 1 times daily. Dx: Type 2 DM - Controlled E11.9 Insulin: Yes - Lancets lancets Test blood sugar(s) 1 times daily. Dx: Type 2 DM - Controlled E11.9 Insulin: No - Vinuhbmw-Ll-Gnv-Fe- FA tab Take 1 tablet by mouth [...] 05/06/2009 01/23/2010 Routine general medical examination at [facility]*01/23/2010 12/06/2012 Class: Chronic Routine gynecological examination [Z01.419] 01/23/2010 02/22/2014 Class: Chronic Morbid Obesity [E66.01] 01/23/2010 Lumbar Disc Disorder [M51.9] 02/16/2010 Routine general medical examination at [facility]*12/06/2012 02/22/2014 Anxiety [F41.9] 06/07/2014 Type 2 diabetes mellitus with microalbuminuria,*0 07/04/2018 Fatty liver [K76.0] 07/21/2018 LETITIA (obstructive sleep apnea) [G47 (more content not included)... [facility] Absolute lymphocyte counton 06-05-2022 Lymphocytes Auto (Unsp spec) [#/Vol] 2.26 10*3/uL 0.83-4.51 [facility] Work Phone: Absolute reticulocyte counto n 06-05-2022 Reticulocytes (Bld) [#/Vol] 0.00 10*3/uL 0-5 [facility] Work Phone: Basophil percentageon 08-02- 2022 Basophil percentage 3.4 mg/dL 2.5-4.9 [facility] Work Phone: Bilirubin [Mass/Vol] 0.60 mg/dL 0.20-1.00 [facility] Work Phone: Comment on above: For patients on eltr ombopag therapy, use of Dimension [place] TBIL is not recommended. Chloride [Moles/Vol] 108 mmol/L 98-107 [facility] Work Phone: Cholesterol [Mass/Vol] 180 mg/dL <200 [facility] Work Phone: Comment on above: <200 mg/dL Desirable 200-240 mg/dL Borderline >240 mg/dL High Risk Glucose [Mass/Vol] 100 mg/dL 74-106 [facility] Work Phone: Comment on above: Fasting Glucose resu lt from 100 to 125 mg/dL suggests IMPAIRED HOMEOSTASIS per A.D.A. criteria. Neutrophils (Bld) [#/Vol] 5.5 10*3/uL 2.0-7.7 [facility] Work Phone: Potassium [Moles/Vol] 3.6 mmol/L 3.5-5.1 [facility] Work Phone: Protein [Mass/Vol] 8.2 g/dL 6.4-8.2 [facility] Work Phone: Sodium [Moles/Vol] 137 mmol/L 136-145 [facility] Work Phone: Triglyceride [Mass/Vol] 418 mg/dL <199 [facility] Work Phone: Comment on above: The [...] (Bld) [#/Vol] 8.6 10*3/uL 4.4-11.0 [facility] Work Phone: Bilirubin Test strip Ql (U)o n 06-05-2022 Bilirubin Ql (U) Negative Negative [facility] Work Phone: Blood erythrocytes count (nu mber/volume)on 06-05-2022 RBC (Bld) [#/Vol] 4.49 10*6/uL 4.2-5.4 [facility] Work Phone: Blood hemoglobin measurement (mass/volume)on 06-05-2022 Hemoglobin (Bld) [Mass/Vol] 14.0 g/dL 12.0-15.0 [facility] Work Phone: Blood platelet mean volumeon 06-05-2022 Platelet mean volume (Bld) [Entitic vol] 9.2 fL 6.2-12.0 [facility] Work Phone: Determination of erythrocyte mean corpuscular volume (MCV)on 06-05-2022 MCV (RBC) [Entitic vol] 92.7 fL 81-99 [facility] Work Phone: Direct bilirubinon Bilirubin.direct [Mass/Vol] 0.11 mg/dL 0.00-0.30 [facility] Work Phone: Hematocrit Auto (Bld) [Volum e fraction]on 06-05-2022 Hematocrit (Bld) [Volume fraction] 41.6 % 37-47 [facility] Work Phone: Ketones Test strip Ql (U)on 06-05-2022 Ketones Ql (U) Negative Negative [facility] Work Phone: Laboratory - Chemistry and C hemistry - challengeon 06-05-2022 ALP [Catalytic activity/Vol] 73 U/L 45-117 [facility] Work Phone: ALT [Catalytic activity/Vol] 24 U/L 13-56 [facility] Work Phone: Cholesterol.total/Choles terol in HDL [Mass ratio] 5.50 {ratio} [facility] Work Phone: CO2 [Moles/Vol] 25.0 mmol/L 21.0-32.0 [facility] Work Phone: Globulin (S) [Mass/Vol] 4.1 g/dL 2.2-4.2 [facility] Work Phone: Urea nitrogen/Creatinine [Mass ratio] 16.6 mg/mg 10-20 [facility] Work Phone: Laboratory - Hematology and Cell countson 06-05-2022 Erythrocyte distribution width (RBC) [Entitic vol] 44.2 fL 35.1-43.9 [facility] Work Phone: Erythrocyte distribution width (RBC) [Ratio] 13.2 % 11.6-14.6 [facility] Work Phone: MCH (RBC) [Entitic mass] 31.2 pg 27.0-32.0 [facility] Work Phone: Nucleated RBC/100 WBC (Bld) [Ratio] 0 % 0-5 [facility] Work Phone: MCHC Auto (RBC) [Mass/Vol]on 06-05-2022 MCHC (RBC) [Mass/Vol] 33.7 g/dL 32-36 [facility] Work Phone: Nitrite Test strip Ql (U)on 06-05-2022 Nitrite Ql (U) Negative Negative [facility] Work Phone: No Panel Informationon 06-05 Estimated GFR (MDRD) Amer 115 mL/min >60 [facility] Work Phone: Comment on above: GFR Calc Estimated GFR (MDRD) Non-Af Amer 95 mL/min >60 [facility] Work Phone: Comment on above: Non- GFR Calc Platelets bldon 06-05-2022 Platelets (Bld) [#/Vol] 200 10*3/uL 150-450 [facility] Work Phone: Protein Test strip Ql (U)on 06-05-2022 Protein Ql (U) 15 mg/dl Negative [facility] Work Phone: Segmented neutrophils/100 WB C Auto (Bld)on 06-05-2022 Segmented neutrophils/100 WBC (Bld) 64.3 % 47-70 [facility] Work Phone: Serum or plasma albumin sharron urement (mass/volume)on 06-05-2022 Albumin [Mass/Vol] 4.1 g/dL 3.2-5.0 [facility] Work Phone: Serum or plasma albumin/glob ulin mass ratioon 06-05-2022 Albumin/Globulin [Mass ratio] 1.0 {ratio} 0.9-2.4 [facility] Work Phone: Serum or plasma calcium sharron urement (mass/volume)on 06-05-2022 Calcium [Mass/Vol] 8.7 mg/dL 8.5-10.1 [facility] Work Phone: Serum or plasma cholesterol in HDL measurement (mass/volume)on 06-05-2022 Cholesterol in HDL [Mass/Vol] 33 mg/dL >40 [facility] Work Phone: Comment on above: The drugs N-Acetylcy steine and Metamizole may falsely depress this assay. Reference Range HDL <40 mg/dL Low HDL Cholesterol HDL >or= 60 mg/dL High HDL Cholesterol Serum or plasma cholesterol in VLDL measurement (mass/volume)on 06-05-2022 Cholesterol in VLDL [Mass/Vol] [facility] Work Phone: Comment on above: Test not performed Serum or plasma creatinine m easurement (mass/volume)on 06-05-2022 Creatinine [Mass/Vol] 0.72 mg/dL 0.55-1.02 [facility] Work Phone: Comment on above: The validity of the calculated GFR & GFRAA in patients over 70 years has not been determined. Clinical correlation is essential. Serum or plasma low density lipoprotein (LDL) cholesterol measurement (mass/volume)on 06-05-2022 Cholesterol in LDL [Mass/Vol] [facility] Work Phone: Comment on above: Test not performed Serum or plasma urea nitroge n measurement (mass/volume)on 06-05-2022 Urea nitrogen [Mass/Vol] 12 mg/dL 7-18 [facility] Work Phone: Serum or plasma uric acid me asurement (mass/volume)on 06-05-2022 Urate [Mass/Vol] 5.6 mg/dL 2.6-6.0 [facility] Work Phone: Comment on above: The drugs N-Acetylcy steine and Metamizole may falsely depress this assay. Thin prep Papanicolaou smear with manual screeningon 06-05-2022 Thin prep Papanicolaou smear with manual screening 14 U/L 15-37 [facility] Work Phone: Thin prep Papanicolaou smear with manual screening 4 5-15 [facility] Work Phone: Thin prep Papanicolaou smear with manual screening 152 U/L 84-246 [facility] Work Phone: Urine blood detectionon 08-0 RBC Ql (U) Negative Negative [facility] Work Phone: Urine clarityon 06-05-2022 Clarity (U) Sl. Cloudy Clear [facility] Work Phone: Urine color determinationon 06-05-2022 Color (U) Yellow Yellow [facility] Work Phone: Urine glucose detectionon Glucose Ql (U) Normal mg/dl Normal [facility] Work Phone: Urine leukocyte esterase det ection by dipstickon 06-05-2022 Leukocyte esterase Test strip Ql (U) 500 /ul Negative [facility] Work Phone: Urine pHon 06-05-2022 pH (U) 5.0 [pH] 5.0 - 8.0 [facility] Work Phone: Urine specific gravity measu rementon 06-05-2022 Specific gravity (U) [Rel density] 1.020 1.002-1.030 [facility] Work Phone: Urobilinogen Auto test strip Ql (U)on 06-05-2022 Urobilinogen Ql (U) Normal mg/dl Normal [facility] Work Phone: CNOVon 05-24-2022 CNOV Office Visit (SPAGWO) ---- TORI GRAY ([id number]) 1980 F Date Time Provider Department 05/24/22 11:00 AM ADELINA MASONGWAsha During your visit today, we recorded the [...] The patient is not nervous/anxious. 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 [facility] CNPN Telephone (AGSPHWG) ---- TORI GRAY ([id number]) 1980 F Date Time Provider Department 05/11/22 ELLE SANCHEZ AGSWG During your visit today, we recorded the [...] bed with current PAP mask. - Ipratropium Milton (ATROVENT) 0.03 % nasal spray Use 2 Sprays in the nose every 12 hours. - metroNIDAZOLE (METROGEL) 0.75 % Topical Gel Apply to affected area twice daily. - [place]-3 Fatty Acids (FISH OIL) 500 mg cap Take 1 capsule by mouth once daily. - blood sugar diagnostic (BLOOD GLUCOSE TEST) test strip Test blood sugar(s) 1 times daily. Dx: Type 2 DM - Controlled E11.9 Insulin: Yes - Lancets lancets Test blood sugar(s) 1 times daily. Dx: Type 2 DM - Controlled E11.9 Insulin: No - Bclxzotd-Ia-Xgv-Fe- FA ( FORMULA) ORAL Tab Take 1 [...] 05/06/2009 01/23/2010 Routine general medical examination at [facility]*01/23/2010 12/06/2012 Class: Chronic Routine gynecological examination [Z01.419] 01/23/2010 02/22/2014 Class: Chronic Morbid Obesity [E66.01] 01/23/2010 Lumbar Disc Disorder [M51.9] 02/16/2010 Routine general medical examination at [facility]*12/06/2012 02/22/2014 Anxiety [F41.9] 06/07/2014 Type 2 diabetes mellitus with microalbuminuria,*0 07/04/2018 Fatty liver [K76.0] 07/21/2018 LETITIA (obstructive sleep apnea) [G47.33] 07/21/2018 Microalbuminuria [R80.9] 09/30/2018 Obesity, Class III, BMI >= 40 [E66.01] 11/26/2019 Prolonged Q-T interval on ECG [R94.31] 03/31/2020 Encounter Status:Closed by LIVIA LUNA on 05/11/22 Normal [facility] GLUCOSE, BLOOD (POC)on 05-10 Glucose [Mass/Vol] 104 mg/dL Abnormal 74 - 99 mg/dL [facility] CNCOon 03-29-2022 CNCO Letter Text Normal [facility] CNOVon 03-29-2022 CNOV Office Visit (SPAGWO) ---- TORI GRAY ([id number]) 1980 F Date Time Provider Department 03/29/22 11:00 AM ELLE SANCHEZ During your visit today, we recorded the following information about you: Pulse Respiration Normal [facility] CNPNon 03-29-2022 CNPN Telephone (SPAGWO) ---- TORI GRAY ([id number]) 1980 F Date Time Provider Department 03/29/22 ELLE SANCHEZ During your visit today, we recorded the following information about you: Teresekarla Cruz 03/29/2022 12:53 PM Signed 1.Are you [...] bed with current PAP mask. - Ipratropium Milton (ATROVENT) 0.03 % nasal spray Use 2 Sprays in the nose every 12 hours. - metroNIDAZOLE (METROGEL) 0.75 % Topical Gel Apply to affected area twice daily. - [place]-3 Fatty Acids (FISH OIL) 500 mg cap Take 1 capsule by mouth once daily. - blood sugar diagnostic (BLOOD GLUCOSE TEST) test strip Test blood sugar(s) 1 times daily. Dx: Type 2 DM - Controlled E11.9 Insulin: Yes - Lancets lancets Test blood sugar(s) 1 times daily. Dx: Type 2 DM - Controlled E11.9 Insulin: No - Vzybgmeo-Df-Gpn-Fe- FA ( FORMULA) ORAL Tab Take 1 [...] 05/06/2009 01/23/2010 Routine general medical examination at [facility]*01/23/2010 12/06/2012 Class: Chronic Routine gynecological examination [Z01.419] 01/23/2010 02/22/2014 Class: Chronic Morbid Obesity [E66.01] 01/23/2010 Lumbar Disc Disorder [M51.9] 02/16/2010 Routine general medical examination at [facility]*12/06/2012 02/22/2014 Anxiety [F41.9] 06/07/2014 Type 2 diabetes mellitus with microalbuminuria,*0 07/04/2018 Fatty liver [K76.0] 07/21/2018 LETITIA (obstructive sleep apnea) [G47.33] 07/21/2018 Microalbuminuria [R80.9] 09/30/2018 Obesity, Class III, BMI >= 40 [E66.01] 11/26/2019 Prolo (more content not included)... [facility] Basophil percentageon 2021 Cholesterol [Mass/Vol] 178 mg/dL <200 [facility] Comment on above: <200 mg/dL Desirable 200-240 mg/dL Borderline >240 mg/dL High Risk Triglyceride [Mass/Vol] 183 mg/dL C [facility] Comment on above: The drugs N-Acetylcy steine and Metamizole may falsely depress this assay.Serum Triglycerides Reference Interval Normal <150 mg/dL Borderline high 150 - 199 mg/dL High 200 - 499 mg/dL Very High > or = 500 mg/dL Bilirubin [Mass/Vol] 0.30 mg/dL 0.20-1.00 [facility] Work Phone: Comment on above: For patients on eltr ombopag therapy, use of Dimension [place] TBIL is not recommended. Chloride [Moles/Vol] 109 mmol/L 98-107 [facility] Work Phone: Glucose [Mass/Vol] 126 mg/dL 74-106 [facility] Work Phone: Comment on above: Fasting Glucose resu lt greater than or equal to 126 mg/dL suggests DIABETES MELLITUS per A.D.A. criteria. Potassium [Moles/Vol] 4.1 mmol/L 3.5-5.1 [facility] Work Phone: Protein [Mass/Vol] 8.4 g/dL 6.4-8.2 [facility] Work Phone: Sodium [Moles/Vol] 136 mmol/L 136-145 [facility] Work Phone: WBC (Bld) [#/Vol] 9.6 10*3/uL 4.4-11.0 [facility]: Blood erythrocytes count (nu mber/volume)on 02-07-2022 RBC (Bld) [#/Vol] 4.63 10*6/uL 4.2-5.4 [facility] Work [facility]: Blood hemoglobin measurement (mass/volume)on 02-07-2022 Hemoglobin (Bld) [Mass/Vol] 14.2 g/dL 12.0-15.0 [facility] Work Phone: Blood platelet mean volumeon 02-07-2022 Platelet mean volume (Bld) [Entitic vol] 9.5 fL 6.2-12.0 [facility] Work Phone: Determination of erythrocyte mean corpuscular volume (MCV)on 02-07-2022 MCV (RBC) [Entitic vol] 91.6 fL 81-99 [facility] Work Phone: Hematocrit Auto (Bld) [Volum e fraction]on 02-07-2022 Hematocrit (Bld) [Volume fraction] 42.4 % 37-47 [facility] Work Phone: LIPID PANEL (OUTSIDE)on VLDL Cholesterol 37 [facility] Laboratory - Chemistry and C hemistry - challengeon 02-07-2022 ALP [Catalytic activity/Vol] 87 U/L 45-117 [facility] Work Phone: ALT [Catalytic activity/Vol] 29 U/L 13-56 [facility] Work Phone: CO2 [Moles/Vol] 23.0 mmol/L 21.0-32.0 [facility] Work Phone: Globulin (S) [Mass/Vol] 4.3 g/dL 2.2-4.2 [facility] Work Phone: Magnesium [Mass/Vol] 1.7 mg/dL 1.6-2.6 [facility]: Urea nitrogen/Creatinine [Mass ratio] 15.1 mg/mg 10-20 [facility] Work Phone: Laboratory - Hematology and Cell countson 02-07-2022 Erythrocyte distribution width (RBC) [Entitic vol] 43.8 fL 35.1-43.9 [facility] Work Phone: Erythrocyte distribution width (RBC) [Ratio] 13.2 % 11.6-14.6 [facility] Work Phone: MCH (RBC) [Entitic mass] 30.7 pg 27.0-32.0 [facility] Work Phone: MCHC Auto (RBC) [Mass/Vol]on 02-07-2022 MCHC (RBC) [Mass/Vol] 33.5 g/dL 32-36 [facility] Work Phone: MICROALBUMIN/CREATININE UR W RATIO (EXTERNAL)on 02-07-2022 Albumin/Creat Ratio 153.4 [facility] Creatinine Urine 189 [facility] Microalbumin, Random urine 290 [facility] No Panel Informationon 02-07 Urine Microalbumin/Creatinine Ratio 153.4 mg/g CRE <30 [facility] Work Phone: Estimated GFR (MDRD) Amer 114 mL/min >60 [facility] Work Phone: Comment on above: GFR Calc Estimated GFR (MDRD) Non-Af Amer 94 mL/min >60 [facility] Work Phone: Comment on above: Non- GFR Calc Thyroid Stimulating Hormone (TSH) 2.76 uIU/mL 0.358-3.74 [facility] Work Phone: Platelets bldon 02-07-2022 Platelets (Bld) [#/Vol] 223 10*3/uL 150-450 [facility] Work Phone: Serum or plasma albumin sharron urement (mass/volume)on 02-07-2022 Albumin [Mass/Vol] 4.1 g/dL 3.2-5.0 [facility] Work Phone: Serum or plasma albumin/glob ulin mass ratioon 02-07-2022 Albumin/Globulin [Mass ratio] 1.0 {ratio} 0.9-2.4 [facility] Work Phone: Serum or plasma calcium sharron urement (mass/volume)on 02-07-2022 Calcium [Mass/Vol] 8.8 mg/dL 8.5-10.1 [facility] Work Phone: Serum or plasma cholesterol in HDL measurement (mass/volume)on 02-07-2022 Cholesterol in HDL [Mass/Vol] 37 mg/dL [facility] Comment on above: The drugs N-Acetylcy steine and Metamizole may falsely depress this assay. Reference Range HDL <40 mg/dL Low HDL Cholesterol HDL >or= 60 mg/dL High HDL Cholesterol Serum or plasma cholesterol in VLDL measurement (mass/volume)on 02-07-2022 Cholesterol in VLDL [Mass/Vol] 37 mg/dL 5-40 [facility] Work Phone: Serum or plasma creatinine m easurement (mass/volume)on 02-07-2022 Creatinine [Mass/Vol] 0.73 mg/dL 0.55-1.02 [facility] Work Phone: Comment on above: The validity of the calculated GFR & GFRAA in patients over 70 years has not been determined. Clinical correlation is essential. Serum or plasma low density lipoprotein (LDL) cholesterol measurement (mass/volume)on 02-07-2022 Cholesterol in LDL [Mass/Vol] 104 mg/dL 0-130 [facility] Serum or plasma urea nitroge n measurement (mass/volume)on 02-07-2022 Urea nitrogen [Mass/Vol] 11 mg/dL 7-18 [facility] Work Phone: TSH (EXTERNAL)on 02-07-2022 TSH 2.76 IU/ml 0.2 - 5.6 IU/ml [facility] Thin prep Papanicolaou smear with manual screeningon 02-07-2022 Thin prep Papanicolaou smear with manual screening 290.0 mg/L NO RANGE EST. [facility] Work Phone: Thin prep Papanicolaou smear with manual screening 13 U/L 15-37 [facility] Work Phone: Thin prep Papanicolaou smear with manual screening 4 5-15 [facility] Work Phone: Urine creatinine measurement (mass/volume)on 02-07-2022 Creatinine (U) [Mass/Vol] 189.00 mg/dL NO RANGE EST. [facility] Work Phone: Whole blood hemoglobin A1c/t otal hemoglobin ratio (mass fraction)on 02-07-2022 HbA1c (Bld) [Mass fraction] 5.1 % 3.8-5.6 [facility] Comment on above: Normal < 5.7 % Predi abetic 5.7 - 6.4 % Diabetic >or= 6.5 % Please note range changes. Hany 01-29-2022 CNPN Telephone (AGSPINE3) ---- TORI GRAY ([id number]) 1980 F Date Time Provider Department 01/29/22 [facility] During your visit today, we recorded the [...] by phone, Left brief message on cell voiceAlta Analogil stating to call and schedule. Crystal Gross Allergies As of Date: 01/29/2022 Noted Allergy [...] bed with current PAP mask. - Ipratropium [place] (ATROVENT) 0.03 % nasal spray Use 2 Sprays in the nose every 12 hours. - metroNIDAZOLE (METROGEL) 0.75 % Topical Gel Apply to affected area twice daily. - [place]-3 Fatty Acids (FISH OIL) 500 mg cap Take 1 capsule by mouth once daily. - blood sugar diagnostic (BLOOD GLUCOSE TEST) test strip Test blood sugar(s) 1 times daily. Dx: Type 2 DM - Controlled E11.9 Insulin: Yes - Lancets lancets Test blood sugar(s) 1 times daily. Dx: Type 2 DM - Controlled E11.9 Insulin: No - Hazgjylc-Mg-Nta-Fe- FA ( FORMULA) ORAL Tab Take 1 [...] 05/06/2009 01/23/2010 Routine general medical examination at [facility]*01/23/2010 12/06/2012 Class: Chronic Routine gynecological examination [Z01.419] 01/23/2010 02/22/2014 Class: Chronic Morbid Obesity [E66.01] 01/23/2010 Lumbar Disc Disorder [M51.9] 02/16/2010 Routine general medical examination at [facility]*12/06/2012 02/22/2014 Anxiety [F41.9] 06/07/2014 Type 2 diabetes mellitus with microalbuminuria,*0 07/04/2018 Fatty liver [K76.0] 07/21/2018 LETITIA (obstructive sleep apnea) [G47.33] 07/21/2018 Microalbuminuria [R80.9] 09/30/2018 Obesity, Class III, BMI >= 40 [E66.01] 11/26/2019 Prolonged Q-T interval on ECG [R94.31] 03/31/2020 Encounter Status:Closed by DARRION CARSON on 01/30/22 Normal [facility] Laboratory - Microbiology an d Antimicrobial susceptibilityon 11-21-2021 SARS-CoV-2 (COVID-19) RNA ALLYSON+probe Ql (Unsp spec) Not detected [facility] Work Phone: Office Visit: Jojo Removal, possible other optionson 09-09-2017 Documentation of current medications (procedure) Done Invalid Interpretation Code [facility] Fall risk assessment No Invalid Interpretation Code [facility] Tobacco smoking status NHIS Never Invalid Interpretation Code [facility] Tobacco use CPHS Never smoker Invalid Interpretation Code [facility] Office Visit: Spine Visit- L ow back pain BWCon 09-05-2017 Documentation of current medications (procedure) Done Invalid Interpretation Code [facility] Work Phone: Office Visit: Spine Visit- L ow back painon 09-03-2017 Documentation of current medications (procedure) Done Invalid Interpretation Code [facility] Work Phone: Office Visit: Spine Visit- L ow back [facility] 08-22-2017 Documentation of current medications (procedure) Done Invalid Interpretation Code [facility] Work Phone: Office Visiton 08-09-2017 Dietary management education, guidance, and counseling (procedure) yes Invalid Interpretation Code [facility] Work Phone: Tobacco smoking status NHIS Never Invalid Interpretation Code [facility] Work Phone: Tobacco use CPHS Never smoker Invalid Interpretation Code [facility] Work Phone: Office Visit: BWC: low back painon 05-02-2017 Fall risk assessment No Invalid Interpretation Code [facility] Work Phone: Office Visit: Jojo Removal, possible other optionson 06-04-2014 General categories [Interpretation] of Cervical or vaginal smear or scraping by Cyto stain Normal Invalid Interpretation Code [facility] Vital Signs Date Time Vital Sign Value Performing Clinician Facility 06-07-2025 18:27-0400 Body mass index (BMI) [Ratio] 44.26 kg/m2 Ivette Grimes MD Work Phone: [facility] 06-07-2025 18:27-0400 Body weight 128.19 kg Ivette Grimes MD Work Phone: [facility] 06-07-2025 18:27-0400 Diastolic blood pressure 80 mm[Hg] Ivette Grimes MD Work Phone: [facility] 06-07-2025 18:27-0400 Heart rate 78 /min Ivette Grimes MD Work Phone: [facility] 06-07-2025 18:27-0400 SaO2% (BldA) [Mass fraction] 98 % Ivette Grimes MD Work Phone: [facility] 06-07-2025 18:27-0400 Systolic blood pressure 132 mm[Hg] Ivette Grimes MD Work Phone: [facility] 05-06-2025 10:04-0400 Body height 170.[address] Ivette Grimes MD Work Phone: [facility] 05-06-2025 10:04-0400 Body mass index (BMI) [Ratio] 43 kg/m2 Dr. Ivette Grimes MD Work Phone: [facility] 05-06-2025 10:04-0400 Body weight 124.[address] Ivette Grimes MD Work Phone: [facility] 03-22-2025 09:08-0400 Body height 170.[address] Ivette Grimes MD Work Phone: [facility] 01-22-2025 15:43-0400 Body mass index (BMI) [Ratio] 44.17 kg/m2 Ivette Grimes MD Work Phone: [facility] 01-22-2025 15:43-0400 Body weight 127.91 kg Ivette Grimes MD Work Phone: [facility] 01-22-2025 15:43-0400 Diastolic blood pressure 72 mm[Hg] Ivette Grimes MD Work Phone: [facility] 01-22-2025 15:43-0400 Heart rate 77 /min Ivette Grimes MD Work Phone: [facility] 01-22-2025 15:43-0400 SaO2% (BldA) [Mass fraction] 97 % Ivette Grimes MD Work Phone: [facility] 01-22-2025 15:43-0400 Systolic blood pressure 122 mm[Hg] Ivette Grimes MD Work Phone: [facility] 12-11-2024 11:08-0500 Body mass index (BMI) [Ratio] 43.4 kg/m2 Jennijanell Albaradohof INSURANCE VERIFICATION 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.POLYGRAPH EXAMINER Work Phone: [facility] 12-11-2024 11:08-0500 Body temperature 97.81 [degF] Jenni Albaradohof INSURANCE VERIFICATION 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.POLYGRAPH EXAMINER Work Phone: [facility] 12-11-2024 11:08-0500 Body weight 125.7 kg Jenni Albaradohof INSURANCE VERIFICATION 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.POLYGRAPH EXAMINER Work Phone: [facility] 12-11-2024 11:08-0500 Diastolic blood pressure 74 mm[Hg] Jenni Albaradohof INSURANCE VERIFICATION 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.POLYGRAPH EXAMINER Work Phone: [facility] 12-11-2024 11:08-0500 Heart rate 72 /min Jenni Albaradohof INSURANCE VERIFICATION 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.POLYGRAPH EXAMINER Work Phone: [facility] 12-11-2024 11:08-0500 Respiratory rate 16 /min Jenni Albaradohof INSURANCE VERIFICATION 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.POLYGRAPH EXAMINER Work Phone: [facility] 12-11-2024 11:08-0500 SaO2% (BldA) [Mass fraction] 99 % Jennijanell Albaradohof INSURANCE VERIFICATION 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.POLYGRAPH EXAMINER Work Phone: [facility] 12-11-2024 11:08-0500 Systolic blood pressure 138 mm[Hg] Jenni Albaradohof INSURANCE VERIFICATION 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.POLYGRAPH EXAMINER Work Phone: [facility] 11-11-2024 12:34-0500 Heart rate 74 /min Dr. Ivette Grimes MD Work Phone: [facility] 11-11-2024 12:34-0500 Respiratory rate 20 /min Dr. Ivette Grimes MD Work Phone: [phone] [place] [address] 11-11-2024 12:34-0500 SaO2% (BldA) [Mass fraction] 100 % Dr. Ivette Grimes MD Work Phone: [phone] [place] [address] 11-11-2024 11:00-0500 Diastolic blood pressure 60 mm[Hg] Dr. Ivette Grimes MD Work Phone: [phone] [place] [address] 11-11-2024 11:00-0500 Systolic blood pressure 108 mm[Hg] Dr. Ivette Grimes MD Work Phone: [phone] [place] [address] 11-11-2024 05:55-0500 Body height [address] Ivette Grimes MD Work Phone: 5(415)452-670087 [place] [address] 11-11-2024 05:55-0500 Body mass index (BMI) [Ratio] 45.2 kg/m2 Dr. Ivette Grimes MD Work Phone: 5(486)154-946187 [place] [address] 11-11-2024 05:55-0500 Body temperature 97.5 [degF] Dr. Ivette Grimes MD Work Phone: 4(593)241-316787 [place] [address] 11-11-2024 05:55-0500 Body weight [address] Ivette Grimes MD Work Phone: 3(921)075-806787 [place] [address] 10-16-2024 21:50-0500 Body temperature 98 [degF] Dr. Ivette Grimes MD Work Phone: 9(139)114-302287 [place] [address] 10-16-2024 21:50-0500 Diastolic blood pressure 72 mm[Hg] Dr. Ivette Grimes MD Work Phone: 6(739)945-873087 [place] [address] 10-16-2024 21:50-0500 Heart rate 60 /min Dr. Ivette Grimes MD Work Phone: 5(253)913-244687 [place] [address] 10-16-2024 21:50-0500 Respiratory rate 16 /min Dr. Ivette Grimes MD Work Phone: 7(835)873-564587 [place] [address] 10-16-2024 21:50-0500 SaO2% (BldA) [Mass fraction] 95 % Dr. Ivette Grimes MD Work Phone: [facility] 10-16-2024 21:50-0500 Systolic blood pressure 137 mm[Hg] Dr. Ivette Grimes MD Work Phone: [facility] 10-16-2024 20:23-0500 Body mass index (BMI) [Ratio] 43 kg/m2 Dr. Ivette Grimes MD Work Phone: [facility] 10-16-2024 20:23-0500 Body weight 124.[address] Ivette Grimes MD Work Phone: [facility] 09-03-2024 12:51-0400 Body height 170.2 cm Fatuma Robertser PA-C Work Phone: [facility] 09-03-2024 12:51-0400 Body mass index (BMI) [Ratio] 43.8 kg/m2 Fatuma Queener PA-C Work Phone: [facility] 09-03-2024 12:51-0400 Body weight 126.85 kg Fatuma Queener PA-C Work Phone: [facility] 09-03-2024 12:51-0400 Diastolic blood pressure 71 mm[Hg] Fatuma Queener PA-C Work Phone: [facility] 09-03-2024 12:51-0400 Heart rate 67 /min Fatuma Queener PA-C Work Phone: [facility] 09-03-2024 12:51-0400 SaO2% (BldA) [Mass fraction] 97 % Fatuma Queener PA-C Work Phone: [facility] 09-03-2024 12:51-0400 Systolic blood pressure 153 mm[Hg] Fatuma Queener PA-C Work Phone: [facility] 08-05-2024 08:04-0400 Body mass index (BMI) [Ratio] 42.81 kg/m2 Ivette Grimes MD Work Phone: [facility] 08-05-2024 08:04-0400 Body weight 131.5 kg Ivette Grimes MD Work Phone: [facility] 08-05-2024 08:04-0400 Diastolic blood pressure 62 mm[Hg] Ivette Grimes MD Work Phone: [facility] 08-05-2024 08:04-0400 Heart rate 56 /min Ivette Grimes MD Work Phone: [facility] 08-05-2024 08:04-0400 SaO2% (BldA) [Mass fraction] 96 % Ivette Grimes MD Work Phone: [facility] 08-05-2024 08:04-0400 Systolic blood pressure 114 mm[Hg] Ivette Grimes MD Work Phone: [facility] 07-03-2024 15:29-0400 Body mass index (BMI) [Ratio] 41.94 kg/m2 Ivette Grimes MD Work Phone: [facility] 07-03-2024 15:29-0400 Body weight 128.82 kg Ivette Grimes MD Work Phone: [facility] 07-03-2024 15:29-0400 Diastolic blood pressure 82 mm[Hg] Ivette Grimes MD Work Phone: [facility] 07-03-2024 15:29-0400 Heart rate 78 /min Ivette Grimes MD Work Phone: [facility] 07-03-2024 15:29-0400 SaO2% (BldA) [Mass fraction] 98 % Ivette Grimes MD Work Phone: [facility] 07-03-2024 15:29-0400 Systolic blood pressure 152 mm[Hg] Ivette Grimes MD Work Phone: [facility] 04-02-2024 12:46-0400 Body height 175.3 cm Fatuma Beckford PA-C Work Phone: [facility] 04-02-2024 12:46-0400 Body mass index (BMI) [Ratio] 41.02 kg/m2 Fatuma Beckford PA-C Work Phone: [facility] 04-02-2024 12:46-0400 Body weight 126 kg Fatuma Robertser PA-C Work Phone: [facility] 04-02-2024 12:46-0400 Diastolic blood pressure 77 mm[Hg] Fatuma Robertser PA-C Work Phone: [facility] 04-02-2024 12:46-0400 Heart rate 59 /min Fatuma Robertser PA-C Work Phone: [facility] 04-02-2024 12:46-0400 SaO2% (BldA) [Mass fraction] 99 % Fatuma Robertser PA-C Work Phone: [facility] 04-02-2024 12:46-0400 Systolic blood pressure 135 mm[Hg] Fatuma Beckford PA-C Work Phone: [facility] 02-04-2024 04:03-0400 Body temperature 98 [degF] Dr. Ivette Grimes Work Phone: [facility] 02-04-2024 04:03-0400 Diastolic blood pressure 56 mm[Hg] Dr. Ivette Grimes Work Phone: [facility] 02-04-2024 04:03-0400 Heart rate 59 /min Dr. Ivette Grimes Work Phone: [facility] 02-04-2024 04:03-0400 Respiratory rate 16 /min Dr. Ivette Grimes Work Phone: [facility] 02-04-2024 04:03-0400 SaO2% (BldA) [Mass fraction] 100 % Dr. Ivette Grimes Work Phone: [facility] 02-04-2024 04:03-0400 Systolic blood pressure 107 mm[Hg] Dr. Ivette Grimes Work Phone: [facility] 02-04-2024 01:12-0400 Body height 170.[address] Ivette Grimes Work Phone: [facility] 02-04-2024 01:12-0400 Body mass index (BMI) [Ratio] 43 kg/m2 Dr. Ivette Grimes Work Phone: [facility] 02-04-2024 01:12-0400 Body weight 124.[address] Ivette Grimes Work Phone: [facility] 12-26-2023 10:10-0500 Body height 170.2 cm Fatuma Robertser PA-C Work Phone: [facility] 12-26-2023 10:10-0500 Body weight 123.35 kg Fatuma Robertser PA-C Work Phone: [facility] 12-26-2023 10:10-0500 Diastolic blood pressure 62 mm[Hg] Fatuma Robertser PA-C Work Phone: [facility] 12-26-2023 10:10-0500 Heart rate 68 /min Fatuma Robertser PA-C Work Phone: [facility] 12-26-2023 10:10-0500 Systolic blood pressure 118 mm[Hg] Fatuma Robertser PA-C Work Phone: [facility] 12-10-2023 05:52-0500 Body height 170.[address] Ivette Grimes Work Phone: [facility] 12-10-2023 05:52-0500 Body mass index (BMI) [Ratio] 42.3 kg/m2 Dr. Ivette Grimes Work Phone: [facility] 12-10-2023 05:52-0500 Body temperature 98 [degF] Dr. Ivette Grimes Work Phone: [facility] 12-10-2023 05:52-0500 Body weight 122.[address] Ivette Grimes Work Phone: [facility] 12-10-2023 05:52-0500 Diastolic blood pressure 61 mm[Hg] Dr. Ivette Grimes Work Phone: [facility] 12-10-2023 05:52-0500 Heart rate 68 /min Dr. Ivette Grimes Work Phone: [facility] 12-10-2023 05:52-0500 Respiratory rate 16 /min Dr. Ivette Grimes Work Phone: [facility] 12-10-2023 05:52-0500 SaO2% (BldA) [Mass fraction] 98 % Dr. Ivette Grimes Work Phone: [facility] 12-10-2023 05:52-0500 Systolic blood pressure 108 mm[Hg] Dr. Ivette Grimes Work Phone: [facility] 12-09-2023 17:15-0500 Body weight 122.92 kg Ivette Grimes MD Work Phone: [facility] 12-09-2023 17:15-0500 Diastolic blood pressure 62 mm[Hg] Ivette Grimes MD Work Phone: [facility] 12-09-2023 17:15-0500 Heart rate 60 /min Ivette Grimes MD Work Phone: [facility] 12-09-2023 17:15-0500 SaO2% (BldA) [Mass fraction] 97 % Ivette Grimes MD Work Phone: [facility] 12-09-2023 17:15-0500 Systolic blood pressure 124 mm[Hg] Ivette Grimes MD Work Phone: [facility] 10-27-2023 15:06-0500 Body height 170.18 cm Self Referred [facility] 10-27-2023 15:06-0500 Body mass index (BMI) [Ratio] 43.9 kg/m2 Self Referred [facility] 10-27-2023 15:06-0500 Body temperature 97 [degF] Self Referred [facility] 10-27-2023 15:06-0500 Body weight 127.45 kg Self Referred [facility] 10-27-2023 15:06-0500 Diastolic blood pressure 90 mm[Hg] Self Referred [facility] 10-27-2023 15:06-0500 Heart rate 80 /min Self Referred [facility] 10-27-2023 15:06-0500 Respiratory rate 16 /min Self Referred [facility] 10-27-2023 15:06-0500 SaO2% (BldA) [Mass fraction] 98 % Self Referred [facility] 10-27-2023 15:06-0500 Systolic blood pressure 173 mm[Hg] Self Referred [facility] 08-07-2023 12:17-0400 Body temperature 97.5 [degF] Self Referred [facility] 08-07-2023 12:17-0400 Diastolic blood pressure 75 mm[Hg] Self Referred [facility] 08-07-2023 12:17-0400 Heart rate 53 /min Self Referred [facility] 08-07-2023 12:17-0400 Respiratory rate 14 /min Self Referred [facility] 08-07-2023 12:17-0400 SaO2% (BldA) [Mass fraction] 99 % Self Referred [facility] 08-07-2023 12:17-0400 Systolic blood pressure 119 mm[Hg] Self Referred [facility] 08-07-2023 11:00-0400 Body mass index (BMI) [Ratio] 47.2 kg/m2 Self Referred [facility] 08-05-2023 17:16-0400 Body height 170.18 cm Self Referred [facility] 08-05-2023 17:16-0400 Body weight 136.8 kg Self Referred [facility] 08-05-2023 13:00-0400 Body temperature 97.4 [degF] Dr. Ivette Grimes Work Phone: [facility] 08-05-2023 13:00-0400 Diastolic blood pressure 76 mm[Hg] Dr. Ivette Grimes Work Phone: [facility] 08-05-2023 13:00-0400 Heart rate 58 /min Dr. Ivette Grimes Work Phone: [facility] 08-05-2023 13:00-0400 Respiratory rate 14 /min Dr. Ivette Grimes Work Phone: [facility] 08-05-2023 13:00-0400 SaO2% (BldA) [Mass fraction] 96 % Dr. Ivette Grimes Work Phone: [facility] 08-05-2023 13:00-0400 Systolic blood pressure 156 mm[Hg] Dr. Ivette Grimes Work Phone: [facility] 08-05-2023 11:33-0400 Body mass index (BMI) [Ratio] 47.2 kg/m2 Dr. Ivette Grimes Work Phone: [facility] 08-05-2023 09:51-0400 Body weight 136.[address] Ivette Grimes Work Phone: [facility] 08-05-2023 09:40-0400 Body height 170.[address] Ivette Grimes Work Phone: [facility] 06-07-2023 15:01-0400 Diastolic blood pressure 76 mm[Hg] Ivette Mejia Jr., MD Work Phone: [facility] 06-07-2023 15:01-0400 Heart rate 75 /min Ivette Mejia Jr., MD Work Phone: [facility] 06-07-2023 15:01-0400 Respiratory rate 16 /min Ivette Mejia Jr., MD Work Phone: [facility] 06-07-2023 15:01-0400 SaO2% (BldA) [Mass fraction] 97 % Ivette Mejia Jr., MD Work Phone: [facility] 06-07-2023 15:01-0400 Systolic blood pressure 138 mm[Hg] Ivette Mejia Jr., MD Work Phone: [facility] 06-06-2023 09:39-0400 Body weight 132 kg Ivette Grimes MD Work Phone: [facility] 06-06-2023 09:39-0400 Diastolic blood pressure 81 mm[Hg] Ivette Grimes MD Work Phone: [facility] 06-06-2023 09:39-0400 Heart rate 51 /min Ivette Grimes MD Work Phone: [facility] 06-06-2023 09:39-0400 SaO2% (BldA) [Mass fraction] 98 % Ivette Grimes MD Work Phone: [facility] 06-06-2023 09:39-0400 Systolic blood pressure 129 mm[Hg] Ivette Grimes MD Work Phone: [facility] 05-20-2023 22:47-0400 Diastolic blood pressure 88 mm[Hg] Dr. Ivette Grimes Work Phone: [facility] 05-20-2023 22:47-0400 Heart rate 78 /min Dr. Ivette Grimes Work Phone: [facility] 05-20-2023 22:47-0400 Respiratory rate 18 /min Dr. Ivette Grimes Work Phone: [facility] 05-20-2023 22:47-0400 SaO2% (BldA) [Mass fraction] 100 % Dr. Ivette Grimes Work Phone: [facility] 05-20-2023 22:47-0400 Systolic blood pressure 134 mm[Hg] Dr. Ivette Grimes Work Phone: [facility] 05-20-2023 21:28-0400 Body height 170.[address] Ivette Grimes Work Phone: [facility] 05-20-2023 21:28-0400 Body mass index (BMI) [Ratio] 45.4 kg/m2 Dr. Ivette Grimes Work Phone: [facility] 05-20-2023 21:28-0400 Body temperature 97.5 [degF] Dr. Ivette Grimes Work Phone: [facility] 05-20-2023 21:28-0400 Body weight 131.[address] Ivette Grimes Work Phone: [facility] 05-17-2023 10:04-0400 Body height 170.2 cm Fatuma Beckford PA-C Work Phone: [facility] 05-17-2023 10:04-0400 Body weight 132 kg Fatuma Beckford PA-C Work Phone: [facility] 05-17-2023 10:04-0400 Diastolic blood pressure 70 mm[Hg] Fatuma Robertser PA-C Work Phone: [facility] 05-17-2023 10:04-0400 Heart rate 68 /min Fatuma Queener PA-C Work Phone: [facility] 05-17-2023 10:04-0400 SaO2% (BldA) [Mass fraction] 97 % Fatuma Queener PA-C Work Phone: [facility] 05-17-2023 10:04-0400 Systolic blood pressure 123 mm[Hg] Fatuma Queener PA-C Work Phone: [facility] 03-05-2023 12:35-0400 Body temperature 97.81 [degF] Fatuma Queener PA-C Work Phone: [facility] 03-05-2023 12:35-0400 Body weight 130.09 kg Fatuma Robertser PA-C Work Phone: [facility] 03-05-2023 12:35-0400 Diastolic blood pressure 76 mm[Hg] Fatuma Queener PA-C Work Phone: [facility] 03-05-2023 12:35-0400 Heart rate 61 /min Fatuma Queener PA-C Work Phone: [facility] 03-05-2023 12:35-0400 Respiratory rate 16 /min Fatuma Robertser PA-C Work Phone: [facility] 03-05-2023 12:35-0400 SaO2% (BldA) [Mass fraction] 98 % Fatuma Queener PA-C Work Phone: [facility] 03-05-2023 12:35-0400 Systolic blood pressure 145 mm[Hg] Fatuma Queener PA-C Work Phone: [facility] 03-05-2023 08:56-0400 Body height 170.2 cm Galina Camacho MD Work Phone: [facility] 03-05-2023 08:56-0400 Body weight 130.18 kg Galina Camacho MD Work Phone: [facility] 03-05-2023 08:56-0400 Diastolic blood pressure 82 mm[Hg] Galina Camacho MD Work Phone: [facility] 03-05-2023 08:56-0400 Systolic blood pressure 122 mm[Hg] Galina Camacho MD Work Phone: [facility] 02-28-2023 14:20-0400 Body weight 131.54 kg Ivette Grimes MD Work Phone: [facility] 02-28-2023 14:20-0400 Diastolic blood pressure 72 mm[Hg] Ivette Grimes MD Work Phone: [facility] 02-28-2023 14:20-0400 Heart rate 79 /min Ivette Grimes MD Work Phone: [facility] 02-28-2023 14:20-0400 SaO2% (BldA) [Mass fraction] 97 % Ivette Grimes MD Work Phone: [facility] 02-28-2023 14:20-0400 Systolic blood pressure 138 mm[Hg] Ivette Grimes MD Work Phone: [facility] 01-31-2023 09:21-0400 Body weight 130.18 kg Ivette Grimes MD Work Phone: [facility] 01-31-2023 09:21-0400 Diastolic blood pressure 82 mm[Hg] Ivette Grimes MD Work Phone: [facility] 01-31-2023 09:21-0400 Heart rate 65 /min Ivette Grimes MD Work Phone: [facility] 01-31-2023 09:21-0400 SaO2% (BldA) [Mass fraction] 98 % Ivette Grimes MD Work Phone: [facility] 01-31-2023 09:21-0400 Systolic blood pressure 120 mm[Hg] Ivette Grimes MD Work Phone: [facility] 01-24-2023 10:23-0400 Heart rate 64 /min Elle Sanchez MD Work Phone: [facility] 01-24-2023 10:23-0400 Respiratory rate 16 /min Elle Sanchez MD Work Phone: [facility] 01-24-2023 10:23-0400 SaO2% (BldA) [Mass fraction] 98 % Elle Sanchez MD Work Phone: [facility] 01-17-2023 11:21-0400 Body height 170.2 cm Ivette Grimes MD Work Phone: [facility] 01-17-2023 11:21-0400 Body weight 128.82 kg Ivette Grimes MD Work Phone: [facility] 01-17-2023 11:21-0400 Diastolic blood pressure 84 mm[Hg] Ivette Grimes MD Work Phone: [facility] 01-17-2023 11:21-0400 Heart rate 70 /min Ivette Grimes MD Work Phone: [facility] 01-17-2023 11:21-0400 SaO2% (BldA) [Mass fraction] 98 % Ivette Grimes MD Work Phone: [facility] 01-17-2023 11:21-0400 Systolic blood pressure 148 mm[Hg] Ivette Grimes MD Work Phone: [facility] 01-04-2023 11:30-0500 Body weight 128.37 kg Ivette Grimes MD Work Phone: [facility] 01-04-2023 11:30-0500 Diastolic blood pressure 78 mm[Hg] Ivette Grimes MD Work Phone: [facility] 01-04-2023 11:30-0500 Heart rate 85 /min Ivette Grimes MD Work Phone: [facility] 01-04-2023 11:30-0500 SaO2% (BldA) [Mass fraction] 97 % Ivette Grimes MD Work Phone: [facility] 01-04-2023 11:30-0500 Systolic blood pressure 132 mm[Hg] Ivette Grimes MD Work Phone: [facility] 12-28-2022 14:55-0500 Body height 170.[address] Ivette Grimes Work Phone: [facility] 12-28-2022 14:55-0500 Body mass index (BMI) [Ratio] 44.6 kg/m2 Dr. Ivette Grimes Work Phone: [facility] 12-28-2022 14:55-0500 Body weight 129.[address] Ivette Grimes Work Phone: [facility] 12-28-2022 14:55-0500 Diastolic blood pressure 79 mm[Hg] Dr. Ivette Grimes Work Phone: [facility] 12-28-2022 14:55-0500 Heart rate 71 /min Dr. Ivette Grimes Work Phone: [facility] 12-28-2022 14:55-0500 Respiratory rate 20 /min Dr. Ivette Grimes Work Phone: [facility] 12-28-2022 14:55-0500 Systolic blood pressure 130 mm[Hg] Dr. Ivette Grimes Work Phone: [facility] 12-26-2022 11:10-0500 Body height 170.2 cm Ivette Grimes MD Work Phone: [facility] 12-26-2022 11:10-0500 Body weight 128.37 kg Ivette Grimes MD Work Phone: [facility] 12-26-2022 11:10-0500 Diastolic blood pressure 74 mm[Hg] Ivette Grimes MD Work Phone: [facility] 12-26-2022 11:10-0500 Heart rate 83 /min Ivette Grimes MD Work Phone: [facility] 12-26-2022 11:10-0500 SaO2% (BldA) [Mass fraction] 97 % Ivette Grimes MD Work Phone: [facility] 12-26-2022 11:10-0500 Systolic blood pressure 140 mm[Hg] Ivette Grimes MD Work Phone: [facility] 12-14-2022 09:16-0500 Body height 170.2 cm Ivette Grimes MD Work Phone: [facility] 12-14-2022 09:16-0500 Body weight 125.65 kg Ivette Grimes MD Work Phone: [facility] 12-14-2022 09:16-0500 Diastolic blood pressure 98 mm[Hg] Ivette Grimes MD Work Phone: [facility] 12-14-2022 09:16-0500 Heart rate 75 /min Ivette Grimes MD Work Phone: [facility] 12-14-2022 09:16-0500 SaO2% (BldA) [Mass fraction] 98 % Ivette Grimes MD Work Phone: [facility] 12-14-2022 09:16-0500 Systolic blood pressure 160 mm[Hg] Ivette Grimes MD Work Phone: [facility] 12-07-2022 16:34-0500 Body temperature 98.8 [degF] Ivette Mejia Jr., MD Work Phone: [facility] 12-07-2022 16:34-0500 Body weight 126.01 kg Ivette Mejia Jr., MD Work Phone: [facility] 12-07-2022 16:34-0500 Diastolic blood pressure 94 mm[Hg] Ivette Mejia Jr., MD Work Phone: [facility] 12-07-2022 16:34-0500 Heart rate 72 /min Ivette Mejia Jr., MD Work Phone: [facility] 12-07-2022 16:34-0500 Respiratory rate 20 /min Ivette Mejia Jr., MD Work Phone: [facility] 12-07-2022 16:34-0500 SaO2% (BldA) [Mass fraction] 97 % Ivette Mejia Jr., MD Work Phone: [facility] 12-07-2022 16:34-0500 Systolic blood pressure 160 mm[Hg] Ivette Mejia Jr., MD Work Phone: [facility] 12-06-2022 08:07-0500 Body mass index (BMI) [Ratio] 43.4 kg/m2 Dr. Ivette Grimes Work Phone: [facility] 12-06-2022 08:07-0500 Body temperature 97.7 [degF] Dr. Ivette Grimes Work Phone: 0(574)662-871620 [place] [address] 12-06-2022 08:07-0500 Body weight 125.[address] Ivette Grimes Work Phone: 5(715)688-468087 [place] [address] 12-06-2022 08:07-0500 Diastolic blood pressure 79 mm[Hg] Dr. Ivette Grimes Work Phone: 7(328)229-898620 [place] [address] 12-06-2022 08:07-0500 Heart rate 70 /min Dr. Ivette Grimes Work Phone: 9(758)680-106787 [place] [address] 12-06-2022 08:07-0500 Respiratory rate 18 /min Dr. Ivette Grimes Work Phone: 2(526)052-591987 [place] [address] 12-06-2022 08:07-0500 SaO2% (BldA) [Mass fraction] 98 % Dr. Ivette Grimes Work Phone: 0(145)767-924520 [place] [address] 12-06-2022 08:07-0500 Systolic blood pressure 141 mm[Hg] Dr. Ivette Grimes Work Phone: 2(417)796-169320 [place] [address] 12-03-2022 20:26-0500 Heart rate 75 /min Dr. Ivette Grimes Work Phone: 7(077)210-031120 [place] [address] 12-03-2022 20:26-0500 Respiratory rate 18 /min Dr. Ivette Grimes Work Phone: 8(465)000-395587 [place] [address] 12-03-2022 20:26-0500 SaO2% (BldA) [Mass fraction] 96 % Dr. Ivette Grimes Work Phone: 8(477)808-322120 [place] [address] 12-03-2022 18:25-0500 Body mass index (BMI) [Ratio] 43.4 kg/m2 Dr. Ivette Grimes Work Phone: 0(894)003-669087 [place] [address] 12-03-2022 18:25-0500 Body temperature 97.8 [degF] Dr. Ivette Grimes Work Phone: 2(229)577-257087 [place] [address] 12-03-2022 18:25-0500 Body weight 125.[address] Ivette Grimes Work Phone: 8(141)274-276187 [place] [address] 12-03-2022 18:25-0500 Diastolic blood pressure 91 mm[Hg] Dr. Ivette Grimes Work Phone: 4(405)155-249887 [place] [address] 12-03-2022 18:25-0500 Systolic blood pressure 176 mm[Hg] Dr. Ivette Grimes Work Phone: 4(059)906-308787 [place] [address] 11-27-2022 14:36-0500 Body height 170.[address] Ivette Grimes Work Phone: 7(780)668-349787 [place] [address] 11-27-2022 14:36-0500 Body mass index (BMI) [Ratio] 42.7 kg/m2 Dr. Ivette Grimes Work Phone: 7(862)630-358887 [place] [address] 11-27-2022 14:36-0500 Body temperature 98.1 [degF] Dr. Ivette Grimes Work Phone: 1(222)151-307487 [place] [address] 11-27-2022 14:36-0500 Body weight 123.[address] Ivette Grimes Work Phone: 5(481)115-699387 [place] [address] 11-27-2022 14:36-0500 Diastolic blood pressure 81 mm[Hg] Dr. Ivette Grimes Work Phone: 6(599)146-663787 [place] [address] 11-27-2022 14:36-0500 Heart rate 70 /min Dr. Ivette Grimes Work Phone: 9(615)672-838987 [place] [address] 11-27-2022 14:36-0500 Respiratory rate 15 /min Dr. Ivette Grimes Work Phone: 2(222)038-744287 [place] [address] 11-27-2022 14:36-0500 SaO2% (BldA) [Mass fraction] 99 % Dr. Ivette Grimes Work Phone: [facility] 11-27-2022 14:36-0500 Systolic blood pressure 154 mm[Hg] Dr. Ivette Grimes Work Phone: [facility] 11-27-2022 13:51-0500 Body height 170.2 cm Ivette Grimes MD Work Phone: [facility] 11-27-2022 13:51-0500 Body weight 123.83 kg Ivette Grimes MD Work Phone: [facility] 11-27-2022 13:51-0500 Diastolic blood pressure 84 mm[Hg] Ivette Grimes MD Work Phone: [facility] 11-27-2022 13:51-0500 Heart rate 75 /min Ivette Grimes MD Work Phone: [facility] 11-27-2022 13:51-0500 SaO2% (BldA) [Mass fraction] 97 % Ivette Grimes MD Work Phone: [facility] 11-27-2022 13:51-0500 Systolic blood pressure 150 mm[Hg] Ivette Grimes MD Work Phone: [facility] 11-24-2022 15:07-0500 Heart rate 67 /min Dr. Ivette Grimes Work Phone: [facility] 11-24-2022 15:07-0500 SaO2% (BldA) [Mass fraction] 97 % Dr. Ivette Grimes Work Phone: [facility] 11-24-2022 13:43-0500 Diastolic blood pressure 64 mm[Hg] Dr. Ivette Grimes Work Phone: [facility] 11-24-2022 13:43-0500 Respiratory rate 16 /min Dr. Ivette Grimes Work Phone: [facility] 11-24-2022 13:43-0500 Systolic blood pressure 132 mm[Hg] Dr. Ivette Grimes Work Phone: [facility] 11-24-2022 11:44-0500 Body height 170.[address] Ivette Grimes Work Phone: [facility] 11-24-2022 11:44-0500 Body mass index (BMI) [Ratio] 47.2 kg/m2 Dr. Ivette Grimes Work Phone: [facility] 11-24-2022 11:44-0500 Body temperature 97.9 [degF] Dr. Ivette Grimes Work Phone: [facility] 11-24-2022 11:44-0500 Body weight [address] Ivette Grimes Work Phone: [facility] 11-08-2022 13:35-0500 Heart rate 70 /min Adelina Mason INSURANCE VERIFICATION 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.POLYGRAPH EXAMINER Work Phone: [facility] 11-08-2022 13:35-0500 Respiratory rate 14 /min Adelina Mason INSURANCE VERIFICATION 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.POLYGRAPH EXAMINER Work Phone: [facility] 11-08-2022 13:35-0500 SaO2% (BldA) [Mass fraction] 98 % Adelina Crowfield INSURANCE VERIFICATION 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.POLYGRAPH EXAMINER Work Phone: [facility] 09-04-2022 11:50-0400 Body height 170.2 cm Ivette Grimes MD Work Phone: [facility] 09-04-2022 11:50-0400 Body weight 123.11 kg Ivette Grimes MD Work Phone: [facility] 09-04-2022 11:50-0400 Diastolic blood pressure 80 mm[Hg] Ivette Grimes MD Work Phone: [facility] 09-04-2022 11:50-0400 Heart rate 74 /min Ivette Grimes MD Work Phone: [facility] 09-04-2022 11:50-0400 SaO2% (BldA) [Mass fraction] 98 % Ivette Grimes MD Work Phone: [facility] 09-04-2022 11:50-0400 Systolic blood pressure 160 mm[Hg] Ivette Grimes MD Work Phone: 5(795)930-284963 [place] [address] 08-16-2022 12:57-0400 Body height 170.[address] Ivette Grimes Work Phone: 9(191)574-948420 [place] [address] Work Phone: 08-16-2022 12:57-0400 Body mass index (BMI) [Ratio] 42.3 kg/m2 Dr. Ivette Grimes Work Phone: 1(641)768-490120 [place] [address] 08-16-2022 12:57-0400 Body weight 122.[address] Ivette Grimes Work Phone: 7(347)472-143987 [place] [address] 08-16-2022 12:57-0400 Diastolic blood pressure 78 mm[Hg] Dr. Ivette Grimes Work Phone: 6(339)717-711087 [place] [address] 08-16-2022 12:57-0400 Heart rate 73 /min Dr. Ivette Grimes Work Phone: 6(214)384-077887 [place] [address] 08-16-2022 12:57-0400 Respiratory rate 16 /min Dr. Ivette Grimes Work Phone: 5(010)025-253287 [place] [address] 08-16-2022 12:57-0400 Systolic blood pressure 117 mm[Hg] Dr. Ivette Grimes Work Phone: 4(929)738-254187 [place] [address] 08-07-2022 07:38-0400 Body height 170.[address] Ivette Grimes Work Phone: 7(526)527-526065 [address] Work Phone: 08-07-2022 07:38-0400 Body mass index (BMI) [Ratio] 42.5 kg/m2 Dr. Ivette Grimes Work Phone: 2(838)645-555420 [place] [address] 08-07-2022 07:38-0400 Body temperature 99.1 [degF] Dr. Ivette Grimes Work Phone: 2(483)034-411787 [place] [address] 08-07-2022 07:38-0400 Body weight 123.[address] Ivette Grimes Work Phone: 3(691)540-653887 [place] [address] 08-07-2022 07:38-0400 Diastolic blood pressure 81 mm[Hg] Dr. Ivette Grimes Work Phone: 4(247)308-315087 [place] [address] 08-07-2022 07:38-0400 Heart rate 65 /min Dr. Ivette Grimes Work Phone: [facility] 08-07-2022 07:38-0400 Respiratory rate 16 /min Dr. Ivette Grimes Work Phone: [facility] 08-07-2022 07:38-0400 SaO2% (BldA) [Mass fraction] 97 % Dr. Ivette Grimes Work Phone: [facility] 08-07-2022 07:38-0400 Systolic blood pressure 130 mm[Hg] Dr. Ivette Grimes Work Phone: [facility] 08-02-2022 09:50-0400 Body weight 122.02 kg Ivette Grimes MD Work Phone: [facility] 08-02-2022 09:50-0400 Diastolic blood pressure 82 mm[Hg] Ivette Grimes MD Work Phone: [facility] 08-02-2022 09:50-0400 Heart rate 60 /min Ivette Grimes MD Work Phone: [facility] 08-02-2022 09:50-0400 Systolic blood pressure 126 mm[Hg] Ivette Grimes MD Work Phone: [facility] 07-19-2022 12:57-0400 Body height 170.2 cm Karen Bansal INSURANCE VERIFICATION 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.POLYGRAPH EXAMINER Work Phone: [facility] 07-19-2022 12:57-0400 Body weight 122.92 kg Karen Bansal INSURANCE VERIFICATION 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.POLYGRAPH EXAMINER Work Phone: [facility] 07-19-2022 12:57-0400 Diastolic blood pressure 57 mm[Hg] Karen Bansal INSURANCE VERIFICATION 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.POLYGRAPH EXAMINER Work Phone: [facility] 07-19-2022 12:57-0400 Heart rate 76 /min Karen Bansal INSURANCE VERIFICATION 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.POLYGRAPH EXAMINER Work Phone: [facility] 07-19-2022 12:57-0400 Systolic blood pressure 115 mm[Hg] Karen Bansal INSURANCE VERIFICATION 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.POLYGRAPH EXAMINER Work Phone: [facility] 06-07-2022 15:13-0400 Body temperature 97.81 [degF] Tara Dahlhausen INSURANCE VERIFICATION 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.POLYGRAPH EXAMINER Work Phone: [facility] 06-07-2022 15:13-0400 Body weight 119.84 kg Tara Dahlhausen INSURANCE VERIFICATION 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.POLYGRAPH EXAMINER Work Phone: [facility] 06-07-2022 15:13-0400 Diastolic blood pressure 68 mm[Hg] Tara Dahlhausen INSURANCE VERIFICATION 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.POLYGRAPH EXAMINER Work Phone: [facility] 06-07-2022 15:13-0400 Heart rate 80 /min Tara Dahlhausen INSURANCE VERIFICATION 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.POLYGRAPH EXAMINER Work Phone: [facility] 06-07-2022 15:13-0400 Respiratory rate 22 /min Tara Dahlhausen INSURANCE VERIFICATION 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.POLYGRAPH EXAMINER Work Phone: [facility] 06-07-2022 15:13-0400 SaO2% (BldA) [Mass fraction] 98 % Tara Dahlhausen INSURANCE VERIFICATION 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.POLYGRAPH EXAMINER Work Phone: [facility] 06-07-2022 15:13-0400 Systolic blood pressure 112 mm[Hg] Tara Dahlhausen INSURANCE VERIFICATION 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.POLYGRAPH EXAMINER Work Phone: [facility] 06-04-2022 14:39-0400 Body height 170.[address] Ivette Grimes Work Phone: [facility] Work Phone: 05-24-2022 11:01-0400 Heart rate 78 /min Adelina Mason INSURANCE VERIFICATION 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.POLYGRAPH EXAMINER Work Phone: [facility] 05-24-2022 11:01-0400 Respiratory rate 18 /min Adelina Mason INSURANCE VERIFICATION 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.POLYGRAPH EXAMINER Work Phone: [facility] 05-24-2022 11:01-0400 SaO2% (BldA) [Mass fraction] 98 % Adelina Mason INSURANCE VERIFICATION 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.POLYGRAPH EXAMINER Work Phone: [facility] 05-10-2022 10:54-0400 Diastolic blood pressure 75 mm[Hg] Elle Sanchez MD Work Phone: [facility] 05-10-2022 10:54-0400 Heart rate 61 /min Elle Sanchez MD Work Phone: [facility] 05-10-2022 10:54-0400 Respiratory rate 20 /min Elle Sanchez MD Work Phone: [facility] 05-10-2022 10:54-0400 SaO2% (BldA) [Mass fraction] 98 % Elle Sanchez MD Work Phone: [facility] 05-10-2022 10:54-0400 Systolic blood pressure 130 mm[Hg] Elle Sanchez MD Work Phone: [facility] 05-01-2022 14:39-0400 Body weight 118.39 kg Ivette Grimes MD Work Phone: [facility] 05-01-2022 14:39-0400 Diastolic blood pressure 80 mm[Hg] Ivette Grimes MD Work Phone: [facility] 05-01-2022 14:39-0400 Heart rate 68 /min Ivette Grimes MD Work Phone: [facility] 05-01-2022 14:39-0400 Respiratory rate 18 /min Ivette Grimes MD Work Phone: [facility] 05-01-2022 14:39-0400 SaO2% (BldA) [Mass fraction] 98 % Ivette Grimes MD Work Phone: [facility] 05-01-2022 14:39-0400 Systolic blood pressure 132 mm[Hg] Ivette Grimes MD Work Phone: [facility] 04-09-2022 15:29-0400 Body temperature 97.5 [degF] Ivette Mejia Jr., MD Work Phone: [facility] 04-09-2022 15:29-0400 Body weight 122.2 kg Ivette Mejia Jr., MD Work Phone: [facility] 04-09-2022 15:29-0400 Diastolic blood pressure 72 mm[Hg] Ivette Mejia Jr., MD Work Phone: [facility] 04-09-2022 15:29-0400 Heart rate 74 /min Ivette Mejia Jr., MD Work Phone: [facility] 04-09-2022 15:29-0400 Respiratory rate 18 /min Ivette Mejia Jr., MD Work Phone: [facility] 04-09-2022 15:29-0400 SaO2% (BldA) [Mass fraction] 97 % Ivette Mejia Jr., MD Work Phone: [facility] 04-09-2022 15:29-0400 Systolic blood pressure 138 mm[Hg] Ivette Mejia Jr., MD Work Phone: [facility] 03-29-2022 10:58-0400 Heart rate 62 /min Elle Sanchez MD Work Phone: [facility] 03-29-2022 10:58-0400 Respiratory rate 15 /min Elle Sanchez MD Work Phone: [facility] 03-29-2022 10:58-0400 SaO2% (BldA) [Mass fraction] 98 % Elle Sanchez MD Work Phone: [facility] 02-28-2022 16:31-0400 Body weight 120.66 kg Ivette Grimes MD Work Phone: [facility] 02-28-2022 16:31-0400 Diastolic blood pressure 82 mm[Hg] Ivette Grimes MD Work Phone: [facility] 02-28-2022 16:31-0400 Heart rate 72 /min Ivette Grimes MD Work Phone: [facility] 02-28-2022 16:31-0400 Systolic blood pressure 142 mm[Hg] Ivette Grimes MD Work Phone: [facility] 11-21-2021 13:58-0500 Body height 170.[address] Ivette Grimes Work Phone: [facility] Work Phone: 09-09-2017 14:42-0500 BMI (Body Mass Index) 41.78 kg/m2 Amparo Hitchcock MD [facility] 09-09-2017 14:42-0500 Body Temperature 98.5 [degF] Amparo Hitchcock MD [facility] 09-09-2017 14:42-0500 Body Temperature 98.49 [degF] Amparo Hitchcock MD [facility] 09-09-2017 14:42-0500 BP Diastolic 78 mm[Hg] Amparo Hitchcock MD [facility] 09-09-2017 14:42-0500 BP Systolic 137 mm[Hg] Amparo Hitchcock MD [facility] 09-09-2017 14:42-0500 Height 172.72 cm Amparo Hitchcock MD [facility] 09-09-2017 14:42-0500 Pulse (Heart Rate) 67 /min Amparo Hitchcock MD [facility] 09-09-2017 14:42-0500 Respiratory Rate 16 /min Amparo Hitchcock MD [facility] 09-09-2017 14:42-0500 Weight 124.65 kg Amparo Hitchcock MD [facility] 07-22-2017 16:06-0400 BMI (Body Mass Index) 39.53 kg/m2 [facility] Work Phone: 07-22-2017 16:06-0400 Pulse (Heart Rate) 95 /min [facility] Work Phone: 07-22-2017 16:06-0400 Respiratory Rate 22 /min [facility] Work Phone: 07-22-2017 16:06-0400 Weight 117.94 kg [facility] Work Phone: 05-10-2017 14:47-0400 Body Temperature 97.7 [degF] Roya [facility] Work Phone: 05-10-2017 14:47-0400 BP Diastolic 84 mm[Hg] [facility] Work Phone: 05-10-2017 14:47-0400 BP Systolic 132 mm[Hg] [facility] Work Phone: 05-10-2017 14:47-0400 Height 172.72 cm [facility] Work Phone: Encounters Encounter Date Encounter Type Care Provider Facility Start: 06-17-2025 Encounter for other preprocedural examination [place] Start: 06-17-2025 End: 06-17-[address] Bibiana Rehman [place] -[facility] Work Phone: Start: 06-17-2025 End: 06-17-[address] Ivette Grimes MD Work Phone: -[facility] Start: 06-16-2025 End: 06-16-2025 Refill Ivette Grimes MD Work Phone: [facility] Comment on above: Refill Request Start: 06-10-[address] [facility] Start: 06-10-2025 Non-patient / Non-visit Dr. Carson SHEARER -[facility] Work Phone: Start: 06-09-2025 End: 06-18-2025 Telephone encounter Ivette Grimes MD Work Phone: [facility] Comment on above: Results Start: 06-09-2025 End: 06-09-[address] Ivette Grimes MD Work Phone: -Laboratory Start: 06-09-2025 End: 06-09-[address] Ivette Grimes MD -Laboratory Work Phone: Start: 06-09-2025 End: 06-09-2025 ambulatory [facility] Facility:[facility] Start: 06-07-2025 End: 06-07-2025 Patient encounter procedure Ivette Grimes MD Work Phone: [facility] [place] Comment on above: Well adult exam (Carolyn [...] encounter status Ivette Grimes MD Work Phone: [facility] Start: 06-07-2025 End: 06-07-2025 ambulatory IVETTE GRIMES Facility:[facility] Start: 06-07-2025 Encounter for genera l adult medical examination without abnormal findings IVETTE GRIMES [facility] Start: 06-05-2025 Registered Referred HEALTH RISK ASSE SSMENT -Laboratory Work Phone: Start: 06-05-2025 ambulatory Health Risk Assessment Facility:[facility] Start: 06-01-2025 End: 06-01-[address] Bibiana Rehman [place] -[facility] Work Phone: Start: 06-01-2025 End: 06-01-[address] Ivette Grimes MD Work Phone: -[facility] Start: 05-11-2025 ambulatory Ivette Grimes Facility:[facility] Start: 05-11-[address] Ivette barry MD -Physical Therapy Work Phone: Start: 05-06-2025 End: 05-06-[address] Brett Quiroga MD -[facility] Work Phone: Start: 05-06-2025 End: 05-06-[address] Ivette Grimes MD Work Phone: -[facility] Start: 05-05-[address] Ivette barry MD -Physical Therapy Work Phone: Start: 04-21-2025 End: 04-21-[address] Bibiana Rehman [place] -[facility] Work Phone: Start: 04-21-2025 End: 04-21-[address] Ivette Grimes MD Work Phone: [facility] Work Phone: Start: 04-20-[address] Ivette barry MD -Physical Therapy Work Phone: Start: 04-17-2025 End: 04-17-[address] Ivette Grimes MD Work Phone: [facility] Work Phone: Start: 04-17-2025 End: 04-17-[address] Brett Quiroga MD -[facility] Work Phone: Start: 04-17-2025 End: 04-17-2025 ambulatory Brett Quiroga Facility:[facility] Start: 04-12-2025 End: 04-12-2025 ambulatory Ivette Grimes MD Work Phone: [facility] Comment on above: Muscle relaxer Start: 04-07-2025 End: 04-07-2025 Telephone encounter Ivette Grimes MD Work Phone: [facility] Comment on above: Rx Refills Start: 04-05-2025 End: 04-05-[address] Bibiana Rehman [place] -[facility] Work Phone: Start: 04-05-2025 End: 04-05-[address] Ivette Grimes MD Work Phone: [facility] Work Phone: Start: 04-01-2025 End: 04-01-2025 Telephone encounter Amanda Arteaga PA-C Work Phone: Neurology Comment on above: Botox Approved Start: 03-22-2025 End: 03-22-[address] Brett Quiroga MD -[facility] Work Phone: Start: 03-22-2025 End: 03-22-[address] Ivette Grimes MD Work Phone: [facility] Work Phone: Start: 03-19-2025 End: 03-19-2025 Telephone encounter Amanda M Chandler PA-C Work Phone: Neurology Comment on above: Botox Referral Start: 03-11-2025 End: 03-11-[address] Ivette Grimes MD Work Phone: [facility] Work Phone: Start: 03-11-2025 End: 03-11-[address] Brett Quiroga MD -Radiology, [facility] Work Phone: Start: 03-11-2025 End: 03-11-2025 ambulatory Brett Quiroga Facility:[facility] Start: 03-09-2025 End: 03-09-[address] Bibiana Rehman [place] -[facility] Work Phone: Start: 03-09-2025 End: 03-09-2025 ambulatory Bibiana Rehman [facility] Start: 03-09-[address] Ivette barry MD -Physical Therapy Work Phone: Start: 03-09-2025 End: 03-09-2025 Telemedicine consultation with patient Amanda Ortizshi PA-C Work Phone: Neurology Start: 03-09-2025 End: 03-09-2025 ambulatory Amanda M Chandler PA-C Work Phone: Neurology Comment on above: Intractable chronic migraine without aura and with status migrainosus (Primary Dx) Start: 03-04-2025 End: 03-04-2025 Telephone encounter Amanda Arteaga PA-C Work Phone: Neurology Start: 03-02-2025 End: 03-02-2025 Telemedicine consultation with patient Ivette Grimes MD Work Phone: [facility] [place] Start: 03-02-2025 End: 03-02-2025 ambulatory Ivette Grimes MD Work Phone: [facility] Comment on above: Intractable chronic migraine without aura and without status migrainosus (Primary Dx); Chronic left shoulder pain Start: 02-16-2025 ambulatory Jesenia Mercado ENAMEL MACHINE OPERATOR Fac ility:[facility] Start: 02-04-2025 End: 02-04-[address] Bibiana [facility]hman [facility] Work Phone: Start: 02-04-2025 End: 02-04-2025 ambulatory Bibiana Rehman [facility] Start: 01-28-2025 End: 01-28-2025 Chart abstracting Ivette Grimes MD Work Phone: [facility] Start: 01-28-2025 End: 03-30-2025 Follow-up encounter Ivette Grimes MD Work Phone: [facility] Start: 01-28-2025 End: 02-08-2025 Telephone encounter Ivette Grimes MD Work Phone: [facility] Comment on above: PA new dose of ozemp ic Results Start: 01-28-2025 End: 01-28-[address] Ivette Grimes MD Work Phone: [facility] Work Phone: Start: 01-28-2025 End: 01-28-[address] Ivette Grimes MD -Laboratory Work Phone: Start: 01-28-2025 End: 01-28-2025 ambulatory Ivette Grimes Facility:[facility] Start: 01-22-2025 End: 01-22-2025 ambulatory IVETTE GRIMES Facility:[facility] Start: 01-22-2025 End: 01-22-2025 Patient encounter procedure Ivette Grimes MD Work Phone: [facility] Comment on above: LETITIA (obstructive sle ep apnea) (Primary Dx); Flank pain; Headache, unspecified headache type; Type 2 diabetes mellitus with microalbuminuria, with long-term current use of insulin (HCC); Essential (primary) hypertension; Chronic left shoulder pain; Anxiety; Screening for depression Start: 12-24-2024 End: 12-25-2024 Refill Ivette Grimes MD Work Phone: [facility] [place] Comment on above: Refill Request Start: 12-21-2024 End: 12-24-2024 Telephone encounter Jenni Martínez APRN.POLYGRAPH EXAMINER Work Phone: [facility] Comment on above: Results (Labs/Chest xray ) Start: 12-11-2024 End: 12-11-2024 Telephone encounter Ivette Grimes MD Work Phone: [facility] Comment on above: Orders Start: 12-11-2024 End: 12-11-2024 Patient encounter procedure Jenni Martínez ENAMEL MACHINE OPERATOR-C -Radiology, [facility] Work Phone: Start: 12-11-2024 End: 12-11-2024 Office outpatient visit 25 minutes Jenni Martínez APRN.POLYGRAPH EXAMINER Work Phone: [facility] Comment on above: Sinobronchitis (Prim ziyad Dx); Hypokalemia Start: 12-11-2024 End: 12-11-2024 ambulatory [facility] Facility:[facility] Start: 12-11-2024 End: 12-11-2024 ambulatory [facility] Facility:[facility] Start: 11-25-2024 End: 11-25-2024 Refill Ivette Grimes MD Work Phone: [facility] Comment on above: Refill Request Start: 11-23-2024 End: 11-23-2024 Refill Ivette Grimes MD Work Phone: [facility] Comment on above: Refill Request Start: 11-17-2024 End: 12-18-2024 ambulatory Ivette Grimes MD Work Phone: [facility] Start: 11-11-2024 End: 11-11-2024 Emergency department patient visit Dr. Buddy Hall DO -Emergency Department Work Phone: Start: 10-26-2024 End: 10-26-2024 Refill Ivette Grimes MD Work Phone: Psychiatry Comment on above: Refill Request Start: 10-19-2024 End: 10-19-2024 ambulatory Ivette Grimes MD Work Phone: [facility] Comment on above: Flank pain (Primary Dx) Start: 10-19-2024 End: 10-19-2024 Telemedicine consultation with patient Ivette Grimes MD Work Phone: [facility] Start: 10-19-2024 End: 10-19-[address] Bibiana Rehman [place] -[facility] Work Phone: Start: 10-19-2024 End: 10-19-2024 ambulatory Ivette [place] Facility[place] Start: 10-16-2024 End: 10-16-2024 Emergency department patient visit Dr. Sam Pearl MD -Emergency Department Work Phone: Start: 10-07-2024 ambulatory [facility] Facility:[facility] Start: 09-24-2024 End: 09-24-2024 ambulatory Ivette Grimes MD Work Phone: [facility] Comment on above: Dysuria (Primary Dx) ; Type 2 diabetes mellitus with microalbuminuria, with long-term current use of insulin (HCC); Primary insomnia Start: 09-24-2024 End: 09-24-2024 Telemedicine consultation with patient Ivette Grimes MD Work Phone: [facility] Start: 09-09-2024 End: 09-09-2024 ambulatory [facility] Facility[facility] Start: 09-03-2024 End: 09-03-2024 ambulatory IVETTE GRIMES Facility:[facility] Start: 09-03-2024 End: 09-03-2024 Patient encounter procedure Fatuma Beckford PA-C Work Phone: Neurology Comment on above: Intractable chronic migraine without aura and without status migrainosus (Primary Dx) Start: 09-01-2024 End: 09-02-2024 Telephone encounter Fatuma Beckford PA-C Work Phone: Neurology Comment on above: Appointment Patient Question Start: 08-25-2024 End: 08-25-2024 ambulatory Ivette [place] Facility[place] Start: 08-13-2024 End: 08-13-2024 ambulatory [facility] Facility:[facility] Start: 08-11-2024 End: 08-11-2024 Telephone encounter Fatuma Beckford PA-C Work Phone: Neurology Comment on above: Appointment Start: 08-10-2024 End: 08-11-2024 Refill Ivette Grimes MD Work Phone: [facility] [place] Comment on above: Refill Request Start: 08-05-2024 End: 08-06-2024 Telephone encounter Ivette Grimes MD Work Phone: [facility] [place] Comment on above: Insurance Authorizat ion (Ozempic ) Start: 08-05-2024 End: 08-05-2024 ambulatory IVETTE GRIMES Facility:[facility] [place] Start: 08-05-2024 End: 08-05-2024 Patient encounter procedure Ivette Grimes MD Work Phone: [facility] [place] Comment on above: Well adult exam ([facility] alyssa Dx); Essential (primary) hypertension; LETITIA (obstructive sleep apnea); Nonalcoholic fatty liver; Type 2 diabetes mellitus with microalbuminuria, with long-term current use of insulin (HCC); Vertigo; Morbid obesity (HCC); Anxiety; Prolonged Q-T interval on ECG; Herniation of lumbar intervertebral disc with radiculopathy Start: 08-05-2024 End: 08-05-2024 Patient encounter status Ivette Grimes MD Work Phone: [facility] Start: 07-30-2024 End: 07-30-2024 ambulatory Ivette Sydney [facility] Start: 07-24-2024 End: 07-27-2024 Refill Ivette Grimes MD Work Phone: Psychiatry Comment on above: Refill Request Start: 07-22-2024 End: 07-22-2024 ambulatory [facility] Facility:[facility] Start: 07-21-2024 End: 07-21-2024 Telephone encounter Ivette Grimes MD Work Phone: Family [facility] [place] Comment on above: Orders Start: 07-16-2024 End: 07-16-2024 ambulatory [facility] Facility[facility] Start: 07-09-2024 End: 07-10-2024 Telephone encounter Ivette Grimes MD Work Phone: Family [facility] [place] Comment on above: Patient Question Start: 07-08-2024 End: 07-08-2024 Chart abstracting Ivette Grimes MD Work Phone: Family [facility] [place] Start: 07-08-2024 End: 07-08-2024 Telephone encounter Ivette Grimes MD Work Phone: Family [facility] [place] Comment on above: Results Start: 07-07-2024 End: 07-07-2024 Chart abstracting Ivette Grimes MD Work Phone: Family [facility] [place] Start: 07-03-2024 End: 07-03-2024 Patient encounter procedure [facility] Comment on above: Bronchitis (Primary Dx); Type 2 diabetes mellitus with microalbuminuria, with long-term current use of insulin (HCC); Wheezing Start: 07-03-2024 End: 07-04-2024 ambulatory [facility] Facility:[facility] Start: 07-02-2024 End: 07-02-2024 ambulatory Bibiana Rehman Facility[facility] Start: 06-27-2024 End: 06-29-2024 Refill Iv[facility] Grimes MD [facility] Comment on above: Refill Request Start: 06-11-2024 ambulatory Ivette Grimes MD Work Phone: [facility] [place] Comment on above: Good Afternoon Start: 06-05-2024 ambulatory Fatuma vásquez PA-C Work Phone: Neurology Comment on above: Botox Start: 06-05-2024 E-mail encounter fro m caregiver Fatuma Beckford PA-C Work Phone: Neurology Start: 06-04-2024 Telephone encounter Fatuma Rico perales PA-C Work Phone: Neurology Comment on above: Insurance Authorizat ion ([employer]ur[employer]) Start: 06-03-2024 End: 06-03-2024 ambulatory Ivette Grimes MD Work Phone: [facility] [place] Comment on above: Left sided sciatica (Primary Dx); Screening for depression Start: 06-03-2024 End: 06-03-2024 Telemedicine consultation with patient Ivette Grimes MD Work Phone: [facility] [place] Start: 05-12-2024 Refill Ivette Grimes MD Work Phone: [facility] [place] Comment on above: Refill Request Start: 05-01-2024 Telephone encounter Ivette Grimes MD Work Phone: Family [facility] Comment on above: medication not on cu rrent medication list Start: 04-20-2024 Refill Ivette Grimes MD Work Phone: [facility] [place] Comment on above: Refill Request Start: 04-19-2024 Refill Ivette Grimes MD Work Phone: [facility] [place] Comment on above: Refill Request Start: 04-14-2024 Refill Grace morales INSURANCE VERIFICATION 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.POLYGRAPH EXAMINER Work Phone: Psychiatry Comment on above: Refill Request Insurance Authorizat ion (Trulicity ) Start: 04-06-2024 Telephone encounter Fatuma Rico perales PA-C Work Phone: Neurology Comment on above: Insurance Authorizat ion (Botox ) Start: 04-02-2024 End: 04-02-2024 Patient encounter procedure Fatuma Shakeel FULLER Work Phone: Neurology Comment on above: Intractable chronic migraine without aura and without status migrainosus (Primary Dx) Start: 02-28-2024 Refill Stephanie Paz INSURANCE VERIFICATION 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.POLYGRAPH EXAMINER Work Phone: [facility] [place] Comment on above: Refill Request Start: 02-04-2024 End: 02-04-2024 Emergency department patient visit Dr. Ivette Grimes Work Phone: [facility]-Emergency Department Work Phone: Start: 01-22-2024 Refill Ivette Grimes MD Work Phone: [facility] Comment on above: Refill Request Start: 01-01-2024 Refill Grace morales APRN.CNP Work Phone: Psychiatry Comment on above: Refill Request Start: 12-27-2023 Telephone encounter Fatuma Gómez angella PA-C Work Phone: Neurology Comment on above: Insurance Authorizat ion Start: 12-26-2023 End: 12-26-2023 Patient encounter procedure Fatuma Robertscatherine IRENE-Miryea Work Phone: Neurology Comment on above: Intractable chronic migraine without aura and without status migrainosus (Primary Dx) Start: 12-10-2023 End: 12-10-[address] Ivette Grimes Work Phone: [facility]-Pulmonary Medicine [facility] Work Phone: Start: 12-09-2023 End: 12-09-2023 Patient encounter procedure Ivette Grimes MD Work Phone: [facility] Comment on above: Essential (primary) hypertension (Primary Dx); LETITIA (obstructive sleep apnea); Fatty liver; Vertigo; Anxiety Start: 12-09-2023 Telephone encounter Ivette Grimes MD Work Phone: [facility] Comment on above: Orders Start: 12-06-2023 End: 12-06-[address] Ivette Grimes Work Phone: [facility] Work Phone: Start: 12-06-2023 End: 12-06-[address] Ivette Grimes Work Phone: [facility]-Laboratory, OP Pavilion Start: 12-05-2023 ambulatory Ivette Grimes MD Work Phone: [facility] Comment on above: Labs Start: 10-27-2023 End: 10-27-2023 Emergency department patient visit Self Referred [facility]-Emergency Department Work Phone: Start: 10-14-2023 Refill Ivette Grimes MD Work Phone: Family [facility] [place] Comment on above: Refill Request Start: 09-23-2023 Refill Adriana Patel Work Phone: Psychiatry Comment on above: Refill Request Start: 09-12-2023 End: 09-12-2023 Patient encounter procedure Self Referred [facility] Work Phone: Start: 09-09-2023 Refill Ivette Grimes MD Work Phone: [facility] Comment on above: Refill Request Start: 08-21-2023 E-mail encounter fro m caregiver [facility] Start: 08-21-2023 Patient encounter procedure [facility] Neurology Comment on above: Botox Appointment Start: 08-20-2023 Telephone encounter Ievtte Grimes MD Work Phone: [facility] Comment on above: Forms ([facility] preventat ashish care ) Start: 08-15-2023 End: 08-15-2023 Patient encounter procedure Self Referred [facility] Work Phone: Start: 08-07-2023 Non-patient / Non-visit Self Referre d [facility] In[facility] Physicians Work Phone: Start: 08-06-2023 Non-patient / Non-visit Self Referre d [facility] Inpatient [facility] Work Phone: Start: 08-06-2023 Non-patient / Non-visit Self Referre d [facility] Start: 08-05-2023 End: 08-07-2023 Evaluation and management of inpatient Dr. Ivette Grimes Work Phone: [facility]-Progressive Care Unit Work Phone: Start: 08-05-[address] Reji Grimes Work Phone: [facility] Work Phone: Start: 08-01-2023 End: 08-01-[address] [facility] Work Phone: Start: 08-01-2023 End: 08-01-2023 ambulatory Self Referred [facility] Work Phone: Start: 08-01-2023 End: 08-01-2023 Discharged Recurring Self Referred [facility]-Physical Therapy Work Phone: Start: 08-01-[address] Gerald Grimes Work Phone: [facility]-Physical Therapy Work Phone: Start: 07-18-2023 End: 07-18-[address] [facility]imes [facility] Work Phone: Start: 07-18-2023 End: 07-18-[address] Ivette Grimes Work Phone: [facility] Work Phone: Start: 07-18-2023 End: 07-18-[address] Ivette Grimes Work Phone: [facility]-Physical Therapy Work Phone: Start: 07-05-2023 Refill Ivette Grimes MD Work Phone: [facility] Comment on above: Refill Request Start: 06-20-2023 End: 06-20-[address] [facility] Work Phone: Start: 06-19-2023 End: 06-20-2023 Patient encounter procedure Umesh Delgado Work Phone: Podiatry Comment on above: Plantar fasciitis (P rimary Dx); Calcaneal spur of right foot Start: 06-08-2023 Refill Grace morales APRN.POLYGRAPH EXAMINER Work Phone: Psychiatry Comment on above: Refill Request Start: 06-07-2023 End: 06-07-2023 Patient encounter procedure Ivette Mejia MD Work Phone: Neurology Comment on above: Memory loss (Primary Dx); Attention and concentration deficit; Post concussion syndrome; Intractable migraine without aura and without status migrainosus; LETITIA (obstructive sleep apnea) Start: 06-06-2023 End: 06-06-[address] [facility]imes [facility] Work Phone: Start: 06-06-2023 End: 06-06-2023 Patient encounter procedure Ivette Grimes MD Work Phone: [facility] Comment on above: Type 2 diabetes [...] End: 05-29-2023 Patient encounter procedure Isiah Funes APRN.POLYGRAPH EXAMINER Work Phone: [facility] Comment on above: Foot pain, right (Pr imary Dx) Start: 05-29-2023 Telephone encounter Nicole vaca PA-C Work Phone: Urgent Care Comment on above: Pt requesting Boot Start: 05-28-2023 End: 05-28-2023 Subsequent hospital visit by physician Christina [facility] [place] Work Phone: Radiology Comment on above: Pain of right heel [ M79.671] Start: 05-20-2023 End: 05-20-2023 Emergency department patient visit Dr. Ivette Grimes Work Phone: [facility]-Emergency Department Work Phone: Start: 05-17-2023 End: 05-17-2023 Patient encounter procedure Fatuma Beckford PA-C Work Phone: Neurology Comment on above: Intractable chronic migraine without aura and without status migrainosus (Primary Dx); Post concussive syndrome Start: 05-09-[address] Gerald Grimes Work Phone: [facility]-Physical Therapy Work Phone: Start: 05-07-2023 Refill Ivette Grimes MD Work Phone: [facility] Comment on above: Refill Request Start: 04-30-2023 End: 04-30-[address] Ivette Grimes Work Phone: [facility] Work Phone: Start: 04-16-2023 End: 04-16-[address] [facility] Grimes [facility] Work Phone: Start: 04-04-2023 Refill Ivette Grimes MD Work Phone: [facility] Comment on above: Refill Request Start: 04-02-2023 End: 04-02-[address] Ivette Grimes Work Phone: [facility] Work Phone: Start: 04-02-2023 End: 04-02-[address] Ivette Grimes Work Phone: [facility] Work Phone: Start: 04-02-2023 End: 04-02-[address] Ivette Grimes Work Phone: [facility]-Pulmonary Services/Neurology Work Phone: Start: 03-20-2023 Telephone encounter Fatuma perales PA-C Work Phone: Neurology Comment on above: Medication Authoriza tion (Botox renewal ) Start: 03-19-2023 End: 03-19-[address] Ivette Grimes Work Phone: [facility] Work Phone: Start: 03-12-2023 ambulatory Fatuma vásquez PA-C Work Phone: Neurology Comment on above: EEG Start: 03-09-2023 ambulatory Karen Thibodeaux rene INSURANCE VERIFICATION 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.POLYGRAPH EXAMINER Work Phone: Neurology Comment on above: Botox Start: 03-05-[address] Gerald Grimes Work Phone: [facility]-Physical Therapy Start: 03-05-2023 End: 03-05-2023 Patient [...] ambulatory Ivette Grimes MD Work Phone: [facility] Comment on above: Question regarding M ICROALBUMIN/CREATININE UR W RATIO (EXTERNAL) labs Start: 03-04-2023 E-mail encounter fro m caregiver Ivette Grimes MD Work Phone: [facility] [place] Start: 03-04-2023 Telephone encounter Ivette Grimes MD Work Phone: [facility] Comment on above: Medication change re quested Start: 03-04-2023 End: 03-04-[address] Ivette Grimes Work Phone: [facility]-Laboratory, OP Pavilion Start: 03-01-2023 Telephone encounter Ivette Mejia MD Work Phone: Neurology Comment on above: Appointment Start: 03-01-2023 End: 03-01-2023 Patient encounter procedure Ivette Mejia MD Work Phone: Neurology Comment on above: Post concussion synd roberta (Primary Dx); LETITIA (obstructive sleep apnea) Start: 02-28-2023 End: 02-28-2023 Patient encounter procedure Ivette Grimes MD Work Phone: Family [facility] Comment on above: Soft tissue mass (Pr imary Dx); Post concussive syndrome; Essential (primary) hypertension; Type 2 diabetes mellitus with microalbuminuria, with long-term current use of insulin (HCC); Headache, unspecified headache type; Myalgia Start: 02-28-2023 End: 02-28-[address] Ivette Grimes Work Phone: [facility] Start: 02-28-2023 End: 02-28-2023 Subsequent hospital visit by physician Mri [facility] (I-Stat/1.5t) Work Phone: Radiology Comment on above: Post concussion synd roberta [F07.81] Start: 02-27-2023 Telephone encounter Ivette Grimes MD Work Phone: [facility] Comment on above: Medication Request Start: 02-22-2023 Refill Ivette Grimes MD Work Phone: [facility] Comment on above: Refill Request Start: 02-15-2023 End: 02-15-2023 [facility] Grace Coronel APRN.CNP Work Phone: Psychiatry Comment on above: VAHE (generalized anx iety disorder) (Primary Dx); Recurrent major depressive disorder, in full remission (HCC) Start: 02-14-2023 End: 02-14-[address] Ivette Grimes Work Phone: [facility] Start: 02-14-[address] Gerald Grimes Work Phone: [facility]-Physical Therapy Start: 02-11-2023 Refill Ivette Grimes MD Work Phone: [facility] Comment on above: Refill Request Start: 02-09-2023 Telephone encounter Ivette Grimes MD Work Phone: [facility] Comment on above: Results Start: 02-08-2023 End: 02-08-[address] Ivette Grimes Work Phone: [facility] Work Phone: Start: 02-08-2023 End: 02-08-[address] Ivette Grimes Work Phone: [facility], [facility] Start: 01-31-2023 Telephone encounter Ivette Grimes MD Work Phone: [facility] Comment on above: Orders Start: 01-31-2023 End: 01-31-[address] Ivette Grimes Work Phone: [facility] Start: 01-31-2023 End: 01-31-2023 Patient encounter procedure Ivette Grimes MD Work Phone: [facility] Comment on above: Post concussive synd roberta (Primary Dx); Headache, unspecified headache type; Injury of neck, subsequent encounter Start: 01-24-2023 End: 01-24-2023 ambulatory ELLE SANCHEZ Facility:[facility] Start: 01-24-2023 End: 01-24-2023 Patient encounter procedure Elle Sanchez MD Work Phone: [facility] Comment on above: Chronic [...] 01-17-[address] Ivette Grimes Work Phone: [facility] Work Phone: Start: 01-17-2023 End: 01-17-[address] Ivette Grimes Work Phone: [facility]-Physical Therapy Start: 01-17-2023 End: 01-17-2023 Patient encounter procedure Ivette Grimes MD Work Phone: [facility] [place] Comment on above: Post concussive synd roberta (Primary Dx); Headache, unspecified headache type; Injury of neck, subsequent encounter Start: 01-17-2023 End: 01-17-[address] Ivette Grimes Work Phone: [facility] Start: 01-09-2023 Refill Ivette Grimes MD Work Phone: Family [facility] Comment on above: Refill Request Start: 01-08-2023 Telephone encounter Ivette Grimes MD Work Phone: [facility] [place] Comment on above: Insurance Authorizat ion (Trulicity ) Start: 01-04-2023 End: 01-04-2023 Patient encounter procedure Ivette Grimes MD Work Phone: [facility] Comment on above: Post concussive synd roberta (Primary Dx); Headache, unspecified headache type Start: 01-03-2023 End: 01-03-[address] Ivette Grimes Work Phone: [facility] Start: 01-02-2023 End: 01-02-2023 ambulatory [facility] Facility:[facility] Start: 01-01-2023 Telephone encounter Ivette Grimes MD Work Phone: [facility] [place] Comment on above: Patient Update Start: 12-28-2022 End: 12-28-[address] Ivette Grimes Work Phone: [facility] Start: 12-26-2022 End: 12-26-2022 Patient encounter procedure Ivette Grimes MD Work Phone: [facility] Comment on above: Post concussion synd roberta (Primary Dx); Essential (primary) hypertension Refill Request Start: 12-24-2022 Refill Karen Thibodeaux rene WILSON Work Phone: Neurology Comment on above: Refill Request MRI'S need prior aut horization with workman comp Start: 12-20-2022 End: 12-20-[address] Ivette Grimes Work Phone: [facility] Start: 12-14-2022 End: 12-14-2022 Patient encounter procedure Ivette Grimes MD Work Phone: [facility] Comment on above: Post concussion synd roberta (Primary Dx); Essential (primary) hypertension; Microalbuminuria; Type 2 diabetes mellitus without complication, with long-term current use of insulin ([facility]) Start: 12-11-2022 Refill Ivette Grimes MD Work Phone: [facility] Comment on above: Refill Request Mri Start: 12-07-2022 End: 12-07-2022 Patient encounter procedure Ivette Mejia MD Work Phone: Neurology Comment on above: Post concussion synd roberta (Primary Dx); Intractable acute post-traumatic headache; Dizziness; Cervicalgia; History of migraine; LETITIA (obstructive sleep apnea) Start: 12-07-2022 End: 12-07-2022 Patient encounter procedure Ivette Grimes MD Work Phone: [facility] Comment on above: Headache, unspecifie d headache type (Primary Dx); Concussion with loss of consciousness, initial encounter Start: 12-06-2022 End: 12-06-[address] Ivette Grimes Work Phone: [facility] Start: 12-06-2022 End: 12-06-[address] Ivette Grimes Work Phone: [facility] Start: 12-04-2022 Telephone encounter Ivette Grimes MD Work Phone: [facility] Comment on above: Hank requesting records Start: 12-03-2022 End: 12-03-2022 Emergency department patient [facility] Start: 12-03-2022 Telephone encounter Ivette Grimes MD Work Phone: [facility] Comment on above: Patient Update Start: 11-30-2022 End: 11-30-2022 ambulatory Ivette Grimes MD Work Phone: [facility] Comment on above: Headache, unspecifie d headache type (Primary Dx); Concussion with loss of consciousness, initial encounter Start: 11-30-2022 End: 11-30-2022 Telemedicine consultation with patient Ivette Grimes MD Work Phone: [facility] Start: 11-29-2022 Telephone encounter Elle Sanchez MD Work Phone: [facility] [place] Comment on above: Patient Question ( di appointment on 12/05/22) Start: 11-27-2022 End: 11-27-2022 Emergency department patient visit Dr. Ivette Grimes Work Phone: [facility]-Emergency Department Start: 11-27-2022 End: 11-27-[address] Ivette Grimes Work Phone: [facility] Comment on above: Worst headache of li fe (Primary Dx); Concussion with loss of consciousness, initial encounter Start: 11-27-[address] [facility] Start: 11-24-2022 End: 11-24-2022 Emergency department patient visit Dr. Ivette Grimes Work Phone: [facility]-Emergency Department Start: 11-23-2022 Refill Ivette Grimes MD Work Phone: [facility] Comment on above: Refill Request Start: 11-22-[address] Gerald [facility]imes [facility] Start: 11-22-2022 End: 11-22-[address] Ivette Grimes Work Phone: [facility] Start: 11-20-2022 Orders Only Elle Sanchez MD Work Phone: [facility] [place] Comment on above: Chronic left shoulde r pain (Primary Dx); Adhesive capsulitis of left shoulder Start: 11-15-2022 Refill Ivette Grimes MD Work Phone: [facility] Comment on above: Refill Request Start: 11-08-2022 End: 11-08-2022 ambulatory ADELINA MASON Facility:[facility] Start: 11-08-2022 Telephone encounter Elle Sanchez MD Work Phone: [facility] Comment on above: Injections Start: 11-08-2022 End: 11-08-2022 Patient encounter procedure Adelina Mason INSURANCE VERIFICATION 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.POLYGRAPH EXAMINER Work Phone: [facility] Comment on above: Chronic left shoulde r pain (Primary Dx); Adhesive capsulitis of left shoulder; Neuropathic pain; Myofascial pain Start: 11-08-2022 End: 11-08-[address] Ivette Grimes Work Phone: [facility] Start: 10-23-2022 End: 10-23-[address] Ivette Grimes Work Phone: [facility] Start: 10-16-2022 End: 10-16-[address] Ivette Grimes Work Phone: [facility] Start: 10-16-[address] [facility] Start: 10-15-2022 End: 10-15-[address] Ivette Grimes Work Phone: [facility] Work Phone: Start: 10-15-2022 End: 10-15-[address] Ivette Grimes Work Phone: [facility]-Sleep Lab Start: 10-12-2022 End: 10-12-2022 [facility] Gracejustine Coronel INSURANCE VERIFICATION 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.POLYGRAPH EXAMINER Work Phone: Psychiatry Comment on above: VAHE (generalized anx iety disorder) (Primary Dx); Major depressive disorder, recurrent episode, moderate (HCC) Start: 10-10-2022 ambulatory [facility] Neurology Comment on above: Botox Start: 10-10-2022 E-mail encounter escobar cedeno caregiver [facility] Provider [facility] Start: 10-06-2022 Refill Tara alcantar INSURANCE VERIFICATION 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.POLYGRAPH EXAMINER Work Phone: Neurology Comment on above: Refill Request Start: 10-05-2022 Refill Ivette Grimes MD Work Phone: [facility] Comment on above: Refill Request Start: 10-02-2022 Telephone encounter Adelina lazaro INSURANCE VERIFICATION 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.POLYGRAPH EXAMINER Work Phone: [facility] [place] Comment on above: Appointment; Patient Question Start: 10-02-2022 End: 10-02-[address] Ivette Grimes Work Phone: [facility] Start: 09-19-2022 Refill Ivette Grimes MD Work Phone: [facility] Comment on above: Refill Request Start: 09-13-2022 End: 09-13-[address] Ivette Grimes Work Phone: [facility] Start: 09-13-[address] Gerald Grimes Work Phone: [facility] Start: 09-12-2022 ambulatory Ivette Grimes MD Work Phone: [facility] Start: 11-09-2022 Chart abstracting Rivka SwansonW Work Phone: Adult Psychology Comment on above: Behavioral Health So cial Work Start: 09-12-2022 Follow-up encounter Ivette Grimes MD Work Phone: [facility] Comment on above: Follow up (couldn t reply to other message) Start: 09-06-2022 End: 09-06-2022 Refill Ivette Grimes MD Work Phone: [facility] Comment on above: Refill Request Start: 09-06-2022 End: 09-06-[address] Ivette Grimes Work Phone: [facility]Laboratory, [facility] Start: 09-04-2022 ambulatory Ivette Grimes MD Work Phone: [facility] Comment on above: Migraine/botox quest ion Start: 09-04-2022 End: 09-04-2022 Patient encounter procedure Ivette Grimes MD Work Phone: [facility] Comment on above: Lightheadedness (Carolyn alyssa Dx); Essential (primary) hypertension; Prolonged Q-T interval on ECG; Type 2 diabetes mellitus with microalbuminuria, with long-term current use of insulin (HCC); Fatty liver; LETITIA (obstructive sleep apnea) Start: 09-04-[address] Gerald Grimes Work Phone: [facility] Start: 09-03-2022 End: 09-03-2022 ambulatory Ivette Grimes MD Work Phone: [facility] Comment on above: Malaise (Primary Dx) Start: 09-03-2022 End: 09-03-2022 Telemedicine consultation with patient Ivette Grimes MD Work Phone: [facility] Start: 09-03-2022 E-mail encounter escobar m caregiver [facility] Provider [facility] Start: 09-03-2022 Patient encounter procedure [facility] Neurology Comment on above: Botox Appointment Start: 08-30-2022 Non-patient / Non-visit Dr. Regina Grimes Work Phone: [facility] Start: 08-30-2022 End: 08-30-[address] Ivette Grimes Work Phone: [facility] Work Phone: Start: 08-30-2022 End: 08-30-[address] Ivette Grimes Work Phone: [facility] Start: 08-29-2022 End: 08-29-[address] Ivette Grimes Work Phone: [facility] Work Phone: Start: 08-29-2022 End: 08-29-[address] Ivette Grimes Work Phone: [facility] Start: 08-27-2022 ambulatory Ivette Grimes MD Work Phone: [facility] [place] Comment on above: Quick question Start: 08-21-2022 Telephone encounter Karen renee APRN.POLYGRAPH EXAMINER Work Phone: Neurology Comment on above: Medication Authoriza tion (Botox Approved) Start: 08-21-2022 End: 08-21-[address] Ivette Grimes Work Phone: [facility] Start: 08-16-2022 End: 08-16-[address] Ivette Grimes Work Phone: [facility] Start: 08-16-[address] Gerald Grimes Work Phone: [facility] Start: 08-10-2022 End: 08-10-[address] Ivette Grimes Work Phone: [facility] Work Phone: Start: 08-10-2022 End: 08-10-[address] Ivette Grimes Work Phone: [facility]Outpatient Breast Imaging Start: 08-08-2022 Chart abstracting Ivette Martínez MD Work Phone: [facility] Start: 08-08-2022 Telephone encounter Adelina lazaro APRN.POLYGRAPH EXAMINER Work Phone: [facility] [place] Comment on above: Patient Update Start: 08-08-2022 End: 08-08-[address] Ivette Grimes Work Phone: [facility] Work Phone: Start: 08-08-2022 End: 08-08-[address] Ivette Grimes Work Phone: [facility] Start: 08-07-[address] Gerald Grimes Work Phone: [facility] Start: 08-07-2022 End: 08-07-[address] Ivette Grimes Work Phone: [facility]Pulmonary Medicine [facility] Start: 08-06-2022 ambulatory Ivette Grimes MD Work Phone: [facility] Comment on above: Labs Start: 08-02-2022 ambulatory Karen lópez APRN.POLYGRAPH EXAMINER Work Phone: Neurology Comment on above: Migraines Start: 08-02-2022 End: 08-02-[address] Ivette Grimes Work Phone: [facility] Start: 08-02-2022 End: 08-02-2022 Patient encounter procedure Ivette Grimes MD Work Phone: [facility] Comment on above: Type 2 diabetes fred itus with microalbuminuria, with long-term current use of insulin (HCC) (Primary Dx); Fatty liver; LETITIA (obstructive sleep apnea); Microalbuminuria; Lumbar disc disorder; Prolonged Q-T interval on ECG; Fatigue, unspecified type Start: 08-01-2022 ambulatory Ivette Grimes MD Work Phone: [facility] Comment on above: Senior Erp Consultant Start: 08-01-2022 Telephone encounter Karen renee APRN.POLYGRAPH EXAMINER Work Phone: Neurology Comment on above: Medication Authoriza tion (Botox referral) Start: 07-24-2022 End: 07-24-[address] Ivette Grimes Work Phone: [facility] Start: 07-24-2022 End: 07-24-[address] Ivette Grimes Work Phone: [facility] Work Phone: Start: 07-24-2022 End: 07-24-[address] Ivette Grimes Work Phone: [facility] Start: 07-23-2022 Refill Ivette Grimes MD Work Phone: [facility] Comment on above: Refill Request Start: 07-19-2022 Telephone encounter Elle Sanchez MD Work Phone: [facility] Comment on above: Patient Update (Inje ction questions ) Start: 07-19-2022 End: 07-19-2022 Patient encounter procedure Karen Bansal APRN.POLYGRAPH EXAMINER Work Phone: Neurology Comment on above: Intractable chronic migraine without aura and without status migrainosus (Primary Dx); Mixed migraine and muscle contraction headache Start: 07-19-2022 End: 07-19-2022 ambulatory ADELINA MASON Facility:[facility] Start: 07-10-2022 Refill Krystle Barahona on PA-C Work Phone: [facility] Comment on above: Refill Request Start: 07-10-2022 End: 07-10-[address] Ivette Grimes Work Phone: [facility] Start: 07-03-2022 ambulatory Tara alcantar APRN.POLYGRAPH EXAMINER Work Phone: Neurology Comment on above: Medication Question Start: 06-28-2022 End: 06-28-[address] Ivette Grimes Work Phone: [facility] Start: 06-22-2022 Refill Ivette Grimes MD Work Phone: [facility] Comment on above: Refill Request Start: 06-07-2022 End: 06-07-2022 Patient encounter procedure Tara Gillette APRN.POLYGRAPH EXAMINER Work Phone: Neurology Comment on above: Intractable migraine without aura and without status migrainosus (Primary Dx); Medication overuse headache; LETITIA (obstructive sleep apnea); Class 3 severe obesity with body mass index (BMI) of 45.0 to 49.9 in adult, unspecified obesity type, unspecified whether serious comorbidity present (HCC) Start: 06-07-2022 Telephone encounter Tara Herndon APRN.POLYGRAPH EXAMINER Work Phone: Neurology Comment on above: Orders Start: 06-05-2022 ambulatory Ivette guzman MD Work Phone: Neurology Comment on above: Labs Start: 06-05-2022 E-mail encounter fro m caregiver Ivette Grimes MD Work Phone: [facility] Start: 06-05-[address] Luz Grimes Work Phone: [facility] Start: 06-04-2022 End: 06-04-[address] Ivette Grimes Work Phone: [facility] Start: 05-29-2022 Telephone encounter Tara Herndon APRN.POLYGRAPH EXAMINER Work Phone: Neurology Comment on above: Appointment Start: 05-29-2022 End: 05-29-[address] Ivette Grimes Work Phone: [facility] Start: 05-24-2022 End: 05-24-2022 ambulatory ADELINA MASON Facility:[facility] Start: 05-24-2022 End: 05-24-2022 Patient encounter procedure Adelina Mason INSURANCE VERIFICATION 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.POLYGRAPH EXAMINER Work Phone: [facility] Comment on above: Chronic left shoulde r pain (Primary Dx); Adhesive capsulitis of left shoulder; Primary osteoarthritis of left shoulder; Myofascial pain Start: 05-14-2022 End: 05-14-[address] Ivette Grimes Work Phone: [facility] Start: 05-11-2022 Telephone encounter Elle Sanchez MD Work Phone: [facility] [place] Comment on above: Procedure Follow Up Start: 05-10-2022 End: 05-10-2022 ambulatory ELLE SANCHEZ Facility:[facility] Start: 05-10-2022 End: 05-10-2022 ambulatory Elle Sanchez MD Work Phone: [facility] [place] Comment on above: Procedure Start: 05-10-2022 End: 05-10-2022 Patient encounter procedure Elle Sanchez MD Work Phone: [facility] Start: 05-08-2022 ambulatory Ivette Grimes MD Work Phone: [facility] Start: 05-08-2022 Follow-up encounter Ivette Grimes MD Work Phone: [facility] Comment on above: Follow up from last appointment Start: 05-04-2022 End: 05-04-[address] 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 Ivette Grimes Work Phone: [facility] Start: 04-19-2022 ambulatory Ivtete Grimes MD Work Phone: [facility] Comment on above: Lyrica Start: 04-17-2022 End: 04-17-[address] Ivette Grimes Work Phone: [facility] Start: 04-16-2022 Refill Ivette Grimes MD Work Phone: [facility] Comment on above: Refill Request [employer] [...] Refill Ivette Grimes MD Work Phone: [facility] Comment on above: Refill Request Start: 04-03-2022 End: 04-03-[address] Ivette Grimes Work Phone: [facility] Start: 03-30-2022 Refill Ivette Grimes MD Work Phone: [facility] Comment on above: Refill Request Start: 03-29-2022 Telephone encounter Elle Sanchez MD Work Phone: [facility] Comment on above: Injections Start: 03-29-2022 End: 03-29-2022 ambulatory ELLE SANCHEZ Facility:[facility] Start: 03-29-2022 End: 03-29-2022 Patient encounter procedure Elle Sanchez MD Work Phone: [facility] Comment on above: Myofascial pain (Carolyn alyssa Dx); Chronic left shoulder pain; Neuropathic pain; Adhesive capsulitis of left shoulder; Primary osteoarthritis of left shoulder Start: 03-16-2022 Refill Ivette Grimes MD Work Phone: [facility] [place] Comment on above: Refill Request Start: 03-03-2022 Refill M Glen Barahona on PA-C Work Phone: [facility] [place] Comment on above: Refill Request Start: 02-28-2022 End: 02-28-2022 Patient encounter procedure Ivette Grimes MD Work Phone: [facility] [place] Comment on above: Upper back pain (Carolyn alyssa Dx); Acute midline low back pain without sciatica; Type 2 diabetes mellitus with microalbuminuria, with long-term current use of insulin (HCC); LETITIA (obstructive sleep apnea); Lumbar disc disorder; Elevated BP without diagnosis of hypertension Start: 02-27-2022 ambulatory Ivette Grimes MD Work Phone: [facility] [place] Comment on above: ER Start: 02-23-2022 Refill Ivette Grimes MD Work Phone: [facility] [place] Comment on above: Refill Request Start: 02-19-2022 E-mail encounter fro m caregiver Ivette Mejia Jr., MD Work Phone: [facility] [place] Start: 02-19-2022 Patient encounter procedure Ivette [...] encounter Ivette Grimes MD Work Phone: [facility] Comment on above: Results Start: 02-07-2022 End: 02-07-[address] Ivette Grimes Work Phone: [facility], Future Start: 02-06-[address] Gerald Grimes Work Phone: [facility] Start: 02-06-2022 End: 02-06-[address] Ivette Grimes Work Phone: [facility] Start: 02-05-2022 ambulatory Ivette Grimes MD Work Phone: [facility] Comment on above: Lab work Start: 01-29-2022 Telephone encounter Elle Sanchez MD Work Phone: [facility] [place] Comment on above: New Patient Start: 01-23-2022 End: 01-23-[address] Ivette Grimes Work Phone: [facility] Start: 01-09-2022 End: 01-09-[address] Ivette Grimes Work Phone: [facility] Start: 01-09-2022 Non-patient / Non-visit Dr. Regina Grimes Work Phone: [facility] Start: 01-09-2022 End: 01-09-[address] Ivette Grimes Work Phone: [facility] Start: 01-01-2022 End: 01-01-[address] Ivette Grimes Work Phone: [facility] Start: 12-26-2021 End: 12-26-[address] Ivette Grimes Work Phone: [facility] Start: 11-29-2021 End: 11-29-[address] Ivette Grimes Work Phone: [facility] Start: 11-23-2021 End: 11-23-[address] Ivette Grimes Work Phone: [facility] Start: 11-21-2021 End: 11-21-[address] Ivette Grimes Work Phone: [facility] Start: 11-09-2021 End: 11-09-[address] Ivette Grmies Work Phone: [facility] Start: 10-24-2021 End: 10-24-[address] Ivette Grimes Work Phone: [facility] Start: 12-06-2012 End: 02-22-2014 Patient encounter status Stephanie Paz INSURANCE VERIFICATION 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.POLYGRAPH EXAMINER Work Phone: [facility] Start: 01-23-2010 End: 02-22-2014 Patient encounter status Stephanie Paz INSURANCE VERIFICATION 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.POLYGRAPH EXAMINER Work Phone: [facility] Procedures Date Procedure Procedure Detail Performing Clinician Start: 06-09-2025 Hemoglobin A1c/Hemoglobin.total in Blood [facility] Start: 06-09-[address] (FOR REMOTE [facility] USE) [facility] Provider Start: 06-05-2025 Serum inorganic phos phate measurement Dr. Ivette Grimes MD Work Phone: Start: 06-05-2025 Urnls dip stick/tabl et reagent auto microscopy Dr. Ivette Grimes MD Work Phone: Start: 04-17-2025 MRI of joint of lowe [...] Visit Annual PCP Team Chronic Disease Visit [facility] Start: 03-02-2026 Annual PCP Team Chronic Disease Visit Annual PCP Team Chronic Disease Visit [facility] Start: 02-04-2026 Glaucoma screening Dilated Retinal Exam [facility] Start: 01-22-2026 Annual PCP Team Chronic Disease Visit Annual PCP Team Chronic Disease Visit [facility] Start: 01-22-2026 BP Controlled (<130/80) BP Controlled (<130/80) [facility] Start: 01-22-2026 Depression Screening Depression Screening [facility] Start: 12-11-2025 Annual PCP Team Chronic Disease Visit Annual PCP Team Chronic Disease Visit [facility] Start: 12-10-2025 Hemoglobin A1c measurement HbA1C [facility] Start: 10-19-2025 Annual PCP Team Chronic Disease Visit Annual PCP Team Chronic Disease Visit [facility] Start: 09-24-2025 Annual PCP Team Chronic Disease Visit Annual PCP Team Chronic Disease Visit [facility] Start: 08-05-2025 Annual PCP Team Chronic Disease Visit Annual PCP Team Chronic Disease Visit [facility] Start: 08-05-2025 BP Controlled (<130/80) BP Controlled (<130/80) [facility] Start: 08-05-2025 Covid-19 Vaccine () Covid-19 Vaccine () [facility] Comment on above: Postponed from 07/05/2024 (Declined at t his time) Start: 08-05-2025 Diabetic foot examination Diabetic Foot Exam [facility] Start: 08-05-2025 Pneumococcal vaccination Pneumococcal Vaccine (2 of 2 - PCV) [facility] Comment on above: Postponed from 07/28/2020 (Declined at t his time) Start: 08-05-2025 Urine microalbumin profile DTaP,Tdap,Td Vaccine (2 - Td or Tdap) [facility] Comment on above: Postponed from 06/01/2023 (Declined at t his time) Start: 08-04-2025 End: 08-04-2025 Patient encounter procedure 08/04/2025 4:30 PM EDT Office Visit Neurology [address] [place], [place] [id number] Fatuma Beckford PA-C [address] [place], [place] [id number] botox Neurology Comment on above: botox Start: 08-03-2025 End: 08-03-2025 Patient encounter procedure 08/03/2025 2:20 PM EDT Office Visit OB/Gynecology [address] [place] [id number] Galina Camacho MD [address] [place], [place] [id number] annual with pap OB/Gynecology Comment on above: annual with pap Start: 07-31-2025 Hemoglobin A1c measurement HbA1C [facility] Start: 07-08-2025 End: 10-07-2025 Microalbumin/Creatinine [Mass Ratio] in Urine ALBUMIN/CREATININE RATIO, URINE Lab Routine Type 2 diabetes mellitus with microalbuminuria, with long-term current use of insulin (HCC) Expected: 07/08/2025, Expires: 10/07/2025 [facility] Comment on above: Expected: 07/08/2025, Expires: Start: 07-05-2025 Influenza [facility] Start: 07-05-2025 End: 10-04-2025 Urinalysis complete panel - Urine URINALYSIS, WITH MICROSCOPIC Lab Routine Flank pain Proteinuria, unspecified type Expected: 07/05/2025, Expires: 10/04/2025 [facility] Comment on above: Expected: 07/05/2025, Expires: Start: 07-04-2025 Hepatitis B screening Urine Albumin:Creatinine Ratio [facility] Start: 07-04-2025 Hepatitis B surface antibody level LDL Cholesterol [facility] Start: 07-03-2025 Annual PCP Team Chronic Disease Visit Annual PCP Team Chronic Disease Visit [facility] Start: 06-23-2025 ambulatory Ambulatory Facility:[facility] Start: 06-07-2025 End: 09-06-2025 Cholesterol in LDL [Mass/volume] in Serum or Plasma LDL CHOLESTEROL DIR Lab Routine Type 2 diabetes mellitus with microalbuminuria, with long-term current use of insulin (HCC) Essential (primary) hypertension Expected: 06/07/2025, Expires: 09/06/2025 [facility] Comment on above: Expected: 06/07/2025, Expires: Start: 06-07-2025 End: 09-06-2025 Hemoglobin A1c in Blood HEMOGLOBIN A1C Lab Routine Type 2 diabetes mellitus with microalbuminuria, with long-term current use of insulin (HCC) Expected: 06/07/2025, Expires: 09/06/2025 [facility] Work Phone: Comment on above: Expected: 06/07/2025, Expires: Start: 06-03-2025 Annual PCP Team Chronic Disease Visit Annual PCP Team Chronic Disease Visit [facility] Start: 05-03-2025 Influenza vaccination Influenza Vaccine (#1) [facility] Comment on above: Postponed from 07/05/2024 (Declined at t his time) Start: 04-21-2025 End: 04-21-2025 Patient encounter procedure 04/21/2025 2:00 PM EDT Office Visit Neurology [address] [place] [address] Kristen Enriquez APRN.POLYGRAPH EXAMINER [address] [place] [address] botox Neurology Comment on above: botox Start: 03-09-2025 End: 03-09-2025 Patient encounter procedure 03/09/2025 7:25 AM EDT [facility] Neurology [address] [facility] [address] [place] [address] Amanda Arteaga, PA-C [address] [facility] [address] [place] [address] consult botox injection for headache Neurology Comment on above: consult botox injection for headache Start: 01-22-2025 End: 04-23-2025 Basic metabolic 2000 panel - Serum or Plasma BASIC METABOLIC PANEL Lab Routine Essential (primary) hypertension Expected: 01/22/2025, Expires: 04/23/2025 [facility] Comment on above: Expected: 01/22/2025, Expires: Start: 01-22-2025 End: 04-23-2025 Hemoglobin A1c in Blood HEMOGLOBIN A1C Lab Routine Type 2 diabetes mellitus with microalbuminuria, with long-term current use of insulin (HCC) Expected: 01/22/2025, Expires: 04/23/2025 [facility] Work Phone: Comment on above: Expected: 01/22/2025, Expires: Start: 01-01-2025 Hemoglobin A1c measurement HbA1C [facility] Start: 12-26-2024 BP Controlled (<130/80) BP Controlled (<130/80) [facility] Start: 12-25-2024 End: 12-25-2024 Patient encounter procedure 12/25/2024 10:15 AM EST Office Visit OB/Gynecology [address] [place] [address] Karol Mancera APRN.POLYGRAPH EXAMINER [address] [place] [address] annual OB/Gynecology Comment on above: annual Start: 12-17-2024 End: 12-17-2024 ambulatory 12/17/2024 9:40 AM EST [facility] [address] [place], [place] [phone] Ivette Grimes MD [address] [place] [address] [facility] Comment on above: General Start: 12-11-2024 End: 03-12-2025 Comprehensive metabolic 2000 panel - Serum or Plasma COMPREHENSIVE METABOLIC PANEL Lab Routine Hypokalemia Expected: 12/11/2024, Expires: 03/12/2025 [facility] Comment on above: Expected: 12/11/2024, Expires: Start: 12-09-2024 End: 12-09-2024 Patient encounter procedure 12/09/2024 2:20 PM EST Office Visit OB/Gynecology [address] [place] [address] Galina Camacho MD [address] [place] [address] Check up OB/Gynecology Comment on above: Check up Start: 12-09-2024 Annual PCP Team Chronic Disease Visit Annual PCP Team Chronic Disease Visit [facility] Start: 12-09-2024 BP Controlled (<130/80) BP Controlled (<130/80) [facility] in Start: 12-09-2024 Covid-19 Vaccine () Covid-19 Vaccine () [facility] Comment on above: Postponed from 07/05/2023 (Declined at t his time) Start: 12-09-2024 Depression Screening Depression Screening [facility] Start: 11-11-2024 [facility] Start: 11-06-2024 Annual PCP Team Chronic Disease Visit Annual PCP Team Chronic Disease Visit [facility] Start: 10-20-2024 End: 10-20-2024 Patient encounter procedure 10/20/2024 2:20 PM EST Office Visit OB/Gynecology [address] [place], [place] [id number] Galina Camacho MD [address] [place], [place] [id number] Check up OB/Gynecology Comment on above: Check up Start: 09-13-2024 BP Controlled (<130/80) BP Controlled (<130/80) [facility] in Start: 09-12-2024 Glaucoma screening Dilated Retinal Exam [facility] Start: 09-10-2024 End: 09-10-2024 Patient encounter procedure Neurology Comment on above: botox Start: 09-03-2024 End: 09-03-2024 Patient encounter procedure 09/03/2024 1:00 PM EDT Office Visit Neurology [address] [place] [id number] Fatuma Beckford PA-C [address] [place], [place] [id number] botox Neurology Comment on above: botox Start: 08-05-2024 Depression Screening Depression Screening [facility] Comment on above: Postponed from 2000 (Declined at t his time) Start: 08-05-2024 End: 08-05-2024 Patient encounter procedure 08/05/2024 8:00 AM EDT Office Visit Family [facility] [place] [address] [place], [place] [phone] Ivette Grimes MD [address] [place], [place] [phone] [facility] health [facility] [place] Comment on above: My health Start: 07-15-2024 Annual PCP Team Chronic Disease Visit Annual PCP Team Chronic Disease Visit [facility] Start: 07-05-2024 Covid-19 Vaccine ( season) Covid-19 Vaccine () [facility] Start: 07-05-2024 Covid-19 Vaccine () Covid-19 Vaccine () [facility] Start: 07-05-2024 Influenza vaccination [facility] Start: 07-03-2024 End: 10-02-2024 CBC W Auto Differential panel - Blood COMPLETE BLOOD COUNT AND DIFFERENTIAL Lab Routine Type 2 diabetes mellitus with microalbuminuria, with long-term current use of insulin (HCC) Expected: 07/03/2024, Expires: 10/02/2024 [facility] Work Phone: Comment on above: Expected: 07/03/2024, Expires: Start: 07-03-2024 End: 10-02-2024 Comprehensive metabolic 2000 panel - Serum or Plasma COMPREHENSIVE METABOLIC PANEL Lab Routine Type 2 diabetes mellitus with microalbuminuria, with long-term current use of insulin (HCC) Expected: 07/03/2024, Expires: 10/02/2024 [facility] Comment on above: Expected: 07/03/2024, Expires: 4 Start: 07-03-2024 End: 10-02-2024 Hemoglobin A1c in Blood HEMOGLOBIN A1C Lab Routine Type 2 diabetes mellitus with microalbuminuria, with long-term current use of insulin (HCC) Expected: 07/03/2024, Expires: 10/02/2024 [facility] Comment on above: Expected: 07/03/2024, Expires: 4 Start: 07-03-2024 End: 10-02-2024 Lipid 1996 panel - Serum or Plasma LIPID PANEL BASIC Lab Routine Type 2 diabetes mellitus with microalbuminuria, with long-term current use of insulin (HCC) Expected: 07/03/2024, Expires: 10/02/2024 [facility] Comment on above: Expected: 07/03/2024, Expires: Start: 07-03-2024 End: 10-02-2024 Microalbumin/Creatinine [Mass Ratio] in Urine ALBUMIN/CREATININE RATIO, URINE Lab Routine Type 2 diabetes mellitus with microalbuminuria, with long-term current use of insulin (HCC) Expected: 07/03/2024, Expires: 10/02/2024 [facility] Comment on above: Expected: 07/03/2024, Expires: Start: 06-06-2024 ANNUAL PCP TEAM CHRONIC DISEASE VISIT ANNUAL PCP TEAM CHRONIC DISEASE VISIT [facility] Start: 06-06-2024 COVID-19 VACCINE (4 - Moderna series) COVID-19 VACCINE (4 - Moderna series) [facility] Comment on above: Postponed from 12/13/2021 (Declined at t his time) Start: 06-06-2024 Diabetic foot examination Diabetic Foot Exam [facility] Start: 06-06-2024 Urine microalbumin profile [facility] Comment on above: Postponed from 06/01/2023 (Declined at t his time) Start: 06-05-2024 Hemoglobin A1c measurement HbA1C [facility] Start: 05-17-2024 BP CONTROLLED (<130/80) BP CONTROLLED (<130/80) [facility] Start: 03-26-2024 End: 03-26-2024 Patient encounter procedure 03/26/2024 10:30 AM EDT Office Visit Neurology [address] [place] [address] Fatuma Beckford PA-C [address] [place], [place] [id number] botox 4 of 4 Neurology Comment on above: botox 4 of 4 Start: 03-05-2024 BP CONTROLLED (<130/80) BP CONTROLLED (<130/80) [facility] Start: 03-05-2024 PNEUMOCOCCAL (2 - PCV) PNEUMOCOCCAL (2 - PCV) [facility] Comment on above: Postponed from 07/28/2020 (Declined at t his time) Start: 03-05-2024 Pneumococcal vaccination [facility] Comment on above: Postponed from 07/28/2020 (Declined at t his time) Start: 03-04-2024 Hepatitis B screening URINE ALBUMIN:CREATININE RATIO [facility] Start: 02-29-2024 ANNUAL PCP TEAM CHRONIC DISEASE VISIT ANNUAL PCP TEAM CHRONIC DISEASE VISIT [facility] Start: 02-04-2024 Bacteria identified in Urine by Culture [facility] Start: 02-04-2024 [facility] Start: 02-04-2024 [facility] Start: 02-01-2024 ANNUAL PCP TEAM CHRONIC DISEASE VISIT ANNUAL PCP TEAM CHRONIC DISEASE VISIT [facility] Start: 01-18-2024 ANNUAL PCP TEAM CHRONIC DISEASE VISIT ANNUAL PCP TEAM CHRONIC DISEASE VISIT [facility] Start: 01-05-2024 ANNUAL PCP TEAM CHRONIC DISEASE VISIT ANNUAL PCP TEAM CHRONIC DISEASE VISIT [facility] Start: 12-26-2023 ANNUAL PCP TEAM CHRONIC DISEASE VISIT ANNUAL PCP TEAM CHRONIC DISEASE VISIT [facility] Start: 12-18-2023 HPV TESTING HPV TESTING [facility] Start: 12-18-2023 PAP TESTING PAP TESTING [facility] Start: 12-18-2023 Screening for malignant neoplasm of cervix [facility] Start: 12-14-2023 ANNUAL PCP TEAM CHRONIC DISEASE VISIT ANNUAL PCP TEAM CHRONIC DISEASE VISIT [facility] Start: 12-07-2023 ANNUAL PCP TEAM CHRONIC DISEASE VISIT ANNUAL PCP TEAM CHRONIC DISEASE VISIT [facility] Start: 12-07-2023 End: 02-06-2024 CBC W Auto Differential panel - Blood CBC + DIFF Lab Routine Type 2 diabetes mellitus with microalbuminuria, with long-term current use of insulin ([facility]) Expected: 12/07/2023, Expires: 02/06/2024 [facility] Work Phone: Comment on above: Expected: 12/07/2023, Expires: Start: 12-07-2023 End: 02-06-2024 Comprehensive metabolic 2000 panel - Serum or Plasma COMP METABOLIC PANEL Lab Routine Type 2 diabetes mellitus with microalbuminuria, with long-term current use of insulin (HCC) Expected: 12/07/2023, Expires: 02/06/2024 [facility] Work Phone: Comment on above: Expected: 12/07/2023, Expires: Start: 12-07-2023 End: 02-06-2024 Hemoglobin A1c in Blood HGB A1C Lab Routine Type 2 diabetes mellitus with microalbuminuria, with long-term current use of insulin ([facility]) Expected: 12/07/2023, Expires: 02/06/2024 [facility] Work Phone: Comment on above: Expected: 12/07/2023, Expires: 4 Start: 12-07-2023 End: 02-06-2024 Lipid 1996 panel - Serum or Plasma LIPID PANEL BASIC Lab Routine Type 2 diabetes mellitus with microalbuminuria, with long-term current use of insulin (HCC) Expected: 12/07/2023, Expires: 02/06/2024 [facility] Work Phone: Comment on above: Expected: 12/07/2023, Expires: Start: 11-30-2023 ANNUAL PCP TEAM CHRONIC DISEASE VISIT ANNUAL PCP TEAM CHRONIC DISEASE VISIT [facility] Start: 11-27-2023 ANNUAL PCP TEAM CHRONIC DISEASE VISIT ANNUAL PCP TEAM CHRONIC DISEASE VISIT [facility] Start: 11-04-2023 Behavioral Health Screening Behavioral Health Screening [facility] Start: 11-04-2023 Depression Assessment Depression Assessment [facility] Start: 10-31-2023 BP CONTROLLED (<130/80) BP CONTROLLED (<130/80) [facility] Start: 10-27-2023 [facility] Start: 09-04-2023 ANNUAL PCP TEAM CHRONIC DISEASE VISIT ANNUAL PCP TEAM CHRONIC DISEASE VISIT [facility] Start: 09-04-2023 Hemoglobin A1c measurement HbA1C [facility] Start: 09-04-2023 Hemoglobin A1c/Hemoglobin.total in Blood HBA1C [facility] Start: 09-03-2023 ANNUAL PCP TEAM CHRONIC DISEASE VISIT ANNUAL PCP TEAM CHRONIC DISEASE VISIT [facility] Start: 08-10-2023 Mammography [facility] Start: 08-10-2023 Screening for malignant neoplasm of breast Mammogram Screening [facility] Start: 08-08-2023 Hepatitis B surface antibody level LDL CHOLESTEROL [facility] Start: 08-07-2023 Patient discharge [facility] Start: 08-06-2023 Telepractice consultation [facility] Start: 08-05-2023 End: 08-05-2023 [facility] Start: 08-05-2023 Following clinical pathway protocol [facility] Start: 08-05-2023 Assessment of risk of venous thromboembolism [facility] Start: 08-05-2023 Cardiac monitoring [facility] Start: 08-05-2023 Catheterization of vein [facility] Start: 08-05-2023 Continuous pulse oximetry [facility] Start: 08-05-2023 Elevation of head of bed [facility] Start: 08-05-2023 Exercises [facility] Start: 08-05-2023 Implementation of planned interventions [facility] Start: 08-05-2023 Insertion of catheter into peripheral vein [facility] Start: 08-05-2023 Measuring intake and output [facility] Start: 08-05-2023 Notification of physician [facility] Start: 08-05-2023 Oxygen therapy [facility] Start: 08-05-2023 Providing care according to standard [facility] Start: 08-05-2023 Referral to occupational therapist [facility] Start: 08-05-2023 Referral to service [facility] Start: 08-05-2023 Tobacco use cessation education [facility] Start: 08-05-2023 Vital signs measurements [facility] Start: 08-05-2023 Verification routine [facility] Start: 08-05-2023 Admission procedure [facility] Start: 08-05-2023 Oxygen therapy [facility] Start: 08-05-2023 [facility] Start: 08-05-2023 Inhalation therapy procedure [facility] Start: 08-05-2023 Patient referral to dietitian [facility] Start: 08-02-2023 3 comp foot exam completed DIABETIC FOOT EXAM [facility] Start: 08-02-2023 ANNUAL PCP TEAM CHRONIC DISEASE VISIT ANNUAL PCP TEAM CHRONIC DISEASE VISIT [facility] Start: 08-02-2023 Diabetic foot examination Diabetic Foot Exam [facility] Start: 07-05-2023 Covid-19 Vaccine ( season) Covid-19 Vaccine ( season) [facility] Start: 07-05-2023 Influenza vaccination [facility] Start: 06-07-2023 End: 08-07-2023 Cobalamin (Vitamin B12) [Mass/volume] in Serum or Plasma VITAMIN B12 BLOOD Lab Routine Memory loss Attention and concentration deficit Expected: 06/07/2023, Expires: 08/07/2023 [facility] Work Phone: Comment on above: Expected: 06/07/2023, Expires: Start: 06-07-2023 End: 08-07-2023 Thyrotropin [Units/volume] in Serum or Plasma TSH BLD Lab Routine Memory loss Attention and concentration deficit Expected: 06/07/2023, Expires: 08/07/2023 [facility] Work Phone: Comment on above: Expected: 06/07/2023, Expires: Start: 06-07-2023 End: 08-07-2023 Thyroxine (T4) free [Mass/volume] in Serum or Plasma T4 FREE/FREE THYROX Lab Routine Memory loss Attention and concentration deficit Expected: 06/07/2023, Expires: 08/07/2023 [facility] Work Phone: Comment on above: Expected: 06/07/2023, Expires: Start: 06-01-2023 Urine microalbumin profile [facility] Start: 05-01-2023 ANNUAL PCP TEAM CHRONIC DISEASE VISIT ANNUAL PCP TEAM CHRONIC DISEASE VISIT [facility] Start: 04-02-2023 [facility] Start: 03-29-2023 Adult depression screening assessment DEPRESSION SCREENING [facility] Start: 02-28-2023 End: 04-30-2023 ALBUMIN/CREAT RATIO RND UR ALBUMIN/CREAT RATIO RND UR Lab Routine Type 2 diabetes mellitus with microalbuminuria, with long-term current use of insulin (HCC) Expected: 02/28/2023, Expires: 04/30/2023 [facility] Work Phone: Comment on above: Expected: 02/28/2023, Expires: 3 Start: 02-28-2023 ANNUAL PCP TEAM CHRONIC DISEASE VISIT ANNUAL PCP TEAM CHRONIC DISEASE VISIT [facility] Start: 02-28-2023 End: 04-30-2023 Basic metabolic 2000 panel - Serum or Plasma BASIC METABOLIC PNL Lab Routine Myalgia Expected: 02/28/2023, Expires: 04/30/2023 [facility] Work Phone: Comment on above: Expected: 02/28/2023, Expires: 3 Start: 02-28-2023 End: 04-30-2023 CBC W Auto Differential panel - Blood CBC + DIFF Lab Routine Myalgia Expected: 02/28/2023, Expires: 04/30/2023 [facility] Work Phone: Comment on above: Expected: 02/28/2023, Expires: 3 Start: 02-28-2023 End: 04-30-2023 Hemoglobin A1c in Blood HGB A1C Lab Routine Type 2 diabetes mellitus with microalbuminuria, with long-term current use of insulin (HCC) Expected: 02/28/2023, Expires: 04/30/2023 [facility] Work Phone: Comment on above: Expected: 02/28/2023, Expires: 3 Start: 02-28-2023 End: 04-30-2023 Iron and Iron binding capacity panel - Serum or Plasma IRON + TIBC Lab Routine Myalgia Expected: 02/28/2023, Expires: 04/30/2023 [facility] Work Phone: Comment on above: Expected: 02/28/2023, Expires: 3 Start: 02-28-2023 End: 04-30-2023 Magnesium [Mass/volume] in Serum or Plasma MAGNESIUM BLD Lab Routine Myalgia Expected: 02/28/2023, Expires: 04/30/2023 [facility] Work Phone: Comment on above: Expected: 02/28/2023, Expires: 3 Start: 02-07-2023 Hepatitis B screening URINE ALBUMIN:CREATININE RATIO [facility] Start: 02-07-2023 Hepatitis B surface antibody level LDL CHOLESTEROL [facility] Start: 02-06-2023 Hemoglobin A1c/Hemoglobin.total in Blood HBA1C [facility] Start: 01-25-2023 ANNUAL PCP TEAM CHRONIC DISEASE VISIT ANNUAL PCP TEAM CHRONIC DISEASE VISIT [facility] Start: 11-04-2022 DEPRESSION ASSESSMENT DEPRESSION ASSESSMENT [facility] Start: 10-16-2022 End: 12-16-2022 Thyrotropin [Units/volume] in Serum or Plasma TSH BLD Lab Routine Lightheadedness Expected: 10/16/2022, Expires: 12/16/2022 [facility] Work Phone: Comment on above: Expected: 10/16/2022, Expires: 3 Start: 10-06-2022 Adult depression screening assessment DEPRESSION SCREENING [facility] Start: 10-05-2022 Glaucoma screening Dilated Retinal Exam [facility] Start: 10-05-2022 Hepatitis C antibody, confirmatory test DILATED RETINAL EXAM [facility] Start: 09-04-2022 End: 11-04-2022 Basic metabolic 2000 panel - Serum or Plasma BASIC METABOLIC PNL Lab Routine Lightheadedness Expected: 09/04/2022, Expires: 11/04/2022 [facility] Work Phone: Comment on above: Expected: 09/04/2022, Expires: 3 Start: 09-04-2022 End: 11-04-2022 CBC W Auto Differential panel - Blood CBC + DIFF Lab Routine Lightheadedness Expected: 09/04/2022, Expires: 11/04/2022 [facility] Work Phone: Comment on above: Expected: 09/04/2022, Expires: 3 Start: 08-16-2022 Patient referral [facility] Work Phone: Start: 08-09-2022 Hemoglobin A1c/Hemoglobin.total in Blood HBA1C [facility] Start: 08-02-2022 End: 10-02-2022 Hemoglobin A1c in Blood HGB A1C Lab Routine Type 2 diabetes mellitus with microalbuminuria, with long-term current use of insulin (HCC) Expected: 08/02/2022, Expires: 10/02/2022 [facility] Work Phone: Comment on above: Expected: 08/02/2022, Expires: 2 Start: 08-02-2022 End: 10-02-2022 Lipid 1996 panel - Serum or Plasma LIPID PANEL BASIC Lab Routine Type 2 diabetes mellitus with microalbuminuria, with long-term current use of insulin (HCC) Expected: 08/02/2022, Expires: 10/02/2022 [facility] Work Phone: Comment on above: Expected: 08/02/2022, Expires: 2 Start: 08-02-2022 End: 10-02-2022 Thyrotropin [Units/volume] in Serum or Plasma TSH BLD Lab Routine Fatigue, unspecified type Expected: 08/02/2022, Expires: 10/02/2022 [facility] Work Phone: Comment on above: Expected: 08/02/2022, Expires: 2 Start: 07-20-2022 3 comp foot exam completed DIABETIC FOOT EXAM [facility] Start: 07-05-2022 Influenza vaccination INFLUENZA (#1) [facility] Start: 06-28-2022 Hepatitis B surface antibody level LDL CHOLESTEROL [facility] Start: 2022 Mammography MAMMOGRAM [facility] Start: 06-05-2022 End: 08-05-2022 Bacteria identified in Urine by Culture URINE CULTURE Microbiology Routine Proteinuria, unspecified type Leukocytosis, unspecified type Expected: 06/05/2022, Expires: 08/05/2022 [facility] Work Phone: Comment on above: Expected: 06/05/2022, Expires: 2 Start: 06-05-2022 End: 08-05-2022 Urinalysis complete panel - Urine URINALYSIS, WITH MICROSCOPIC Lab Routine Proteinuria, unspecified type Leukocytosis, unspecified type Expected: 06/05/2022, Expires: 08/05/2022 [facility] Work Phone: Comment on above: Expected: [...] Medication overuse headache Expected: 04/09/2022, Expires: 06/09/2022 [facility] Work Phone: Comment on above: Expected: [...] Medication overuse headache Expected: 04/09/2022, Expires: 06/09/2022 [facility] Work Phone: Comment on above: Expected: 04/09/2022, Expires: 2 Start: 12-26-2021 Patient referral [facility] Work Phone: Start: 12-13-2021 COVID-19 VACCINE (4 - Booster for Moderna series) COVID-19 VACCINE (4 - Booster for Moderna series) [facility] Start: 12-13-2021 COVID-19 VACCINE (4 - Moderna series) COVID-19 VACCINE (4 - Moderna series) [facility] Start: 11-04-2021 DEPRESSION ASSESSMENT DEPRESSION ASSESSMENT [facility] Start: 08-11-2021 Hepatitis B screening URINE ALBUMIN:CREATININE RATIO [facility] Start: 07-15-2021 Hemoglobin A1c/Hemoglobin.total in Blood HBA1C [facility] Start: 07-28-2020 PNEUMOCOCCAL (2 - PCV) PNEUMOCOCCAL (2 - PCV) [facility] Start: 07-28-2020 Pneumococcal vaccination Pneumococcal Vaccine (2 of 2 - PCV) [facility] Start: 09-24-2017 End: 09-24-2017 Appointment Appointment [facility] Work Phone: Start: 09-23-2017 End: 09-23-2017 Appointment Appointment [facility] Work Phone: Start: 09-17-2017 End: 09-17-2017 Appointment Appointment [facility] Work Phone: Start: 09-16-2017 End: 09-16-2017 Appointment Appointment [facility] Work Phone: Start: 09-12-2017 End: 09-12-2017 Appointment Appointment [facility] Work Phone: Start: 09-10-2017 End: 09-10-2017 Appointment Appointment [facility] Work Phone: Start: 09-09-2017 End: 09-09-2017 Appointment Appointment [facility] Work Phone: Start: 09-05-2017 End: 09-05-2017 Appointment Appointment [facility] Work Phone: Start: 09-05-2017 End: 09-05-2017 Follow up Appt 2x/week Follow up Appt 2x/week [facility] Work Phone: Start: 09-03-2017 End: 09-05-2017 [...] 3x/week Follow up Appt 3x/week [facility] Work Phone: Start: 08-08-2017 End: 08-08-2017 Follow up Appt 3x/week Follow up Appt 3x/week [facility] Work Phone: Start: 08-06-2017 End: 08-06-2017 Follow up Appt 3x/week Follow up Appt 3x/week [facility] Work Phone: Start: 07-02-2017 End: 07-02-2017 Mri spinal canal lumbar w/o contrast material MRI Lumbar Spine [facility] Work Phone: Start: 06-06-2017 End: 06-06-2017 Mri spinal canal lumbar w/o contrast material MRI Lumbar Spine [facility] Work Phone: Start: 05-10-2017 End: 05-10-2017 Radex spine lumbosacral minimum 4 views X-Ray, Spine, Lumbosacral 2-3 views [facility] Work Phone: Start: 05-09-2017 End: 05-09-2017 Physical Therapy General Physical Therapy [facility], [address] [place] [address], [id number] [facility] Work Phone: Start: 2001 HEPATITIS B (1 of 3 - Risk 3-dose series) HEPATITIS B (1 of 3 - Risk 3-dose series) [facility] Start: 2000 BP CONTROLLED (<130/80) BP CONTROLLED (<130/80) [facility] Start: 2000 Depression Screening Depression Screening [facility] Start: 1982 HEPATITIS B (1 of 3 - 3-dose series) HEPATITIS B (1 of 3 - 3-dose series) [facility] Chiropractic manipulation [facility] End: 03-29-2024 Ct soft tissue neck w/contrast material CT NECK SOFT TISSUE W IVCON Radiology Routine Soft tissue mass 1 Occurrences starting 02/28/2023 until 03/29/2024 [facility] Work Phone: Comment on above: 1 Occurrences starting 02/28/2023 until 03/29/2024 End: 12-17-2025 DBT Breast - bilateral screening FLASH SCREENING W JAQUELIN Radiology Routine Encounter for screening mammogram for breast cancer 1 Occurrences starting 11/17/2024 until 12/17/2025 [facility] Work Phone: Comment on above: 1 Occurrences starting 11/17/2024 until 12/17/2025 End: 07-07-2026 DBT Breast - bilateral screening FLASH SCREENING W JAQUELIN Radiology Routine Encounter for screening mammogram for breast cancer 1 Occurrences starting 06/07/2025 until 07/07/2026 [facility] Comment on above: 1 Occurrences starting 06/07/2025 until 07/07/2026 End: 09-04-2023 ECG COMPLETE ECG COMPLETE ECG Routine Prolonged Q-T interval on ECG 1 Occurrences starting 09/04/2022 until 09/04/2023 [facility] Work Phone: Comment on above: 1 Occurrences starting 09/04/2022 until 09/04/2023 End: 03-05-2024 EPIL EEG ROUTINE EPIL EEG ROUTINE NEUROLOGY Routine Altered awareness, transient 1 Occurrences starting 03/05/2023 until 03/05/2024 [facility] Work Phone: Comment on above: 1 Occurrences starting 03/05/2023 until 03/05/2024 Hemoglobin A1c/Hemoglobin.total in Blood [facility] Injection aa&/strd suprascapular nerve INJECT NERV BLCK,SUPRASCAP N. Procedures Routine Adhesive capsulitis of left shoulder Primary osteoarthritis of left shoulder Ordered: 05/10/2022 [facility] Work Phone: Comment on above: Ordered: 05/10/2022 Magnesium [Mass/volu me] in Serum or Plasma [facility] Work Phone: End: 07-05-2024 FLASH SCREENING FLASH SCREENING Radiology Routine Encounter for screening mammogram for malignant neoplasm of breast 1 Occurrences starting 06/06/2023 until 07/05/2024 [facility] Work Phone: Comment on above: 1 Occurrences starting 06/06/2023 until 07/05/2024 End: 01-07-2025 FLASH SCREENING W JAQUELIN FLASH SCREENING W JAQUELIN Radiology Routine Encounter for screening mammogram for malignant neoplasm of breast 1 Occurrences starting 12/09/2023 until 01/07/2025 [facility] Work Phone: Comment on above: 1 Occurrences starting 12/09/2023 until 01/07/2025 MR Lower Extremity Joint [facility] End: 01-06-2024 Mri brain brain stem w/o contrast material MRI BRAIN WO IVCON Radiology Routine Post concussion syndrome Intractable acute post-traumatic headache Dizziness Cervicalgia 1 Occurrences starting 12/07/2022 until 01/06/2024 [facility] Work Phone: Comment on above: 1 Occurrences starting 12/07/2022 until 01/06/2024 End: 01-06-2024 Mri spinal canal cervical w/o contrast matrl MRI CERVICAL SPINE WO IVCON Radiology Routine Post concussion syndrome Intractable acute post-traumatic headache Dizziness Cervicalgia 1 Occurrences starting 12/07/2022 until 01/06/2024 [facility] Work Phone: Comment on above: 1 Occurrences starting 12/07/2022 until 01/06/2024 Patient Education [facility] Work Phone: Patient referral [facility] Work Phone: End: 03-01-2024 US HEAD/NECK SOFT TISSUE OTHER US HEAD/NECK SOFT TISSUE OTHER Radiology Routine Soft tissue mass 1 Occurrences starting 01/31/2023 until 03/01/2024 [facility] Work Phone: Comment on above: 1 Occurrences starting 01/31/2023 until 03/01/2024 US Heart [facility] Work Phone: End: 08-20-2025 XR Chest PA and Lateral XR CHEST 2V FRONTAL/LAT Radiology Routine Cough, unspecified type 1 Occurrences starting 07/21/2024 until 08/20/2025 [facility] Work Phone: Comment on above: 1 Occurrences starting 07/21/2024 until 08/20/2025 End: 01-10-2026 XR Chest PA and Lateral XR CHEST 2V FRONTAL/LAT Radiology STAT Sinobronchitis 1 Occurrences starting 12/11/2024 until 01/10/2026 [facility] Work Phone: Comment on above: 1 Occurrences starting 12/11/2024 until 01/10/2026 End: 05-31-2023 XR RIBS/CHEST 3V AP RIB/OBLS/CXR LEFT XR RIBS/CHEST 3V AP RIB/OBLS/CXR LEFT Radiology Routine Rib pain 1 Occurrences starting 05/01/2022 until 05/31/2023 [facility] Work Phone: Comment on above: 1 Occurrences starting 05/01/2022 until 05/31/2023 [facility] Immunizations Immunization Date Immunization Notes Care Provider [facility] 09-08-2024 influenza, seasonal, injectable, preservative free Dr. Ivette Grimes MD Work Phone: [facility] 09-08-2024 influenza virus vacc ine, unspecified formulation Ivette Grimes MD Work Phone: [facility] 09-23-2023 influenza virus vacc ine, unspecified formulation Ivette Grimes MD Work Phone: [facility] 09-19-2023 influenza, injectabl e, quadrivalent, preservative free Self Referred [facility] 08-06-2022 influenza, injectabl e, quadrivalent, preservative free Dr. Ivette Grimes Work Phone: [facility] 08-06-2022 influenza, seasonal, injectable Ivette Grimes MD Work Phone: [facility] 08-06-2022 influenza virus vacc ine, unspecified formulation Ivette Grimes MD Work Phone: [facility] 10-18-2021 Covid (Moderna) Dr. Ivette Grimes Work Phone: [facility] 08-01-2021 influenza virus vacc ine, unspecified formulation Elle Sanchez MD Work Phone: [facility] 08-01-2021 influenza, injectabl e, quadrivalent, preservative free Dr. Ivette Grimes Work Phone: [facility] 08-01-2021 influenza, seasonal, injectable Dr. Ivette Grimes Work Phone: [facility] 08-01-2021 influenza, seasonal, injectable, preservative free Ivette Grimes MD Work Phone: [facility] 11-29-2020 COVID-19 vaccine, fu ll dose (MODERNA) Elle Sanchez MD Work Phone: [facility] 11-01-2020 Covid (Moderna) Dr. Ivette Grimes Work Phone: [facility] 10-31-2020 COVID-19 vaccine, fu ll dose (MODERNA) Elle Sanchez MD Work Phone: [facility] 08-02-2020 influenza, injectabl e, quadrivalent, preservative free Dr. Ivette Grimes Work Phone: [facility] 08-02-2020 influenza, seasonal, injectable Dr. Ivette Grimes Work Phone: [facility] 08-02-2020 influenza, seasonal, injectable, preservative free Ivette Grimes MD Work Phone: [facility] 08-01-2020 influenza virus vacc ine, unspecified formulation Elle Sanchez MD Work Phone: [facility] 07-30-2019 influenza, injectabl e, quadrivalent, contains preservative Ivette Grimes MD Work Phone: [facility] 07-30-2019 influenza, injectabl e, quadrivalent, preservative free Dr. Ivette Grimes Work Phone: [facility] 07-30-2019 influenza, seasonal, injectable Dr. Ivette Grimes Work Phone: [facility] 07-28-2019 pneumococcal polysaccharide vaccine, 23 valent Elle Sanchez MD Work Phone: [facility] 08-01-2018 influenza, injectabl e, quadrivalent, preservative free Dr. Ivette Grimes Work Phone: [facility] 08-01-2018 influenza, seasonal, injectable Dr. Ivette Grimes Work Phone: [facility] 08-07-2017 influenza, seasonal, injectable Elle Sanchez MD Work Phone: [facility] 07-31-2017 influenza, injectabl e, quadrivalent, preservative free Dr. Ivette Grimes Work Phone: [facility] 07-31-2017 influenza, seasonal, injectable Dr. Ivette Grimes Work Phone: [facility] 08-02-2016 influenza, injectabl e, quadrivalent, preservative free Dr. Ivette Grimes Work Phone: [facility] 08-02-2016 influenza, seasonal, injectable Dr. Ivette Grimes Work Phone: [facility] 07-09-2016 influenza, injectabl e, quadrivalent, contains preservative Elle Sanchez MD Work Phone: [facility] 03-05-2016 hepatitis B vaccine, pediatric or pediatric/adolescent dosage Elle Sanchez MD Work Phone: [facility] 03-05-2016 hepatitis B vaccine, unspecified formulation Elle Sanchez MD Work Phone: [facility] 07-25-2015 influenza, injectabl e, quadrivalent, contains preservative Ivette Grimes MD Work Phone: [facility] 07-25-2015 influenza, injectabl e, quadrivalent, preservative free Dr. Ivette Grimes Work Phone: [facility] 07-25-2015 influenza, seasonal, injectable Dr. Ivette Grimes Work Phone: [facility] 07-25-2015 varicella virus vaccine Cathy Sanchez MD Work Phone: [facility] 06-06-2015 hepatitis B vaccine, pediatric or pediatric/adolescent dosage Elle Sanchez MD Work Phone: [facility] 05-05-2015 hepatitis B vaccine, pediatric or pediatric/adolescent dosage Elle Sanchez MD Work Phone: [facility] 06-01-2013 tetanus toxoid, redu jamila diphtheria toxoid, and acellular pertussis vaccine, adsorbed Elle Sanchez MD Work Phone: [facility] 02-22-2009 human papilloma viru s vaccine, quadrivalent Elle Sanchez MD Work Phone: [facility] Work Phone: 09-27-2008 human papilloma viru s vaccine, quadrivalent Elle Sanchez MD Work Phone: [facility] Work Phone: 07-20-2008 human papilloma viru s vaccine, quadrivalent Elle Sanchez MD Work Phone: [facility] Work Phone: Payers Date Payer Category Payer Unknown [id number] 2024 Self-pay [id number] [phone] [id number] 2022 Government (not [facility] care or Medicaid) [facility] [id number] 2022 Private Health Insurance [id number]. [id number] 2022 Unknown [id number] 2020 Unknown [id number]. [id number] 2019 Unknown [id number]. 1.13.159.2. [id number] 2015 Unknown [id number] Unknown [id number] Unknown [id number] 2.16.840.1.520143.3.579.2. 462 Unknown [id number] 2.16.840.1.327865.3.579.2. 462 Unknown [id number] 2.16.840.1.651861.3.579.2. 462 Unknown [id number] 2.16.840.1.919622.3.579.2. 462 Unknown [id number] 2.16.840.1.555020.3.579.2. 462 Unknown [id number] 2.16.840.1.230737.3.579.2. 462 Unknown [id number] 2.16.840.1.235911.3.579.2. 462 Unknown [id number] 2.16.840.1.895792.3.579.2. 462 Unknown [id number] 2.16840.1.388879.3.579.2. 462 Unknown [id number] 2.16.840.1.785423.3.579.2. 462 Unknown [id number] 2.840.1.900064.3.579.2. 462 Unknown [id number] 2.840.1.802568.3.579.2. 462 Unknown [id number] 2.840.1.647143.3.579.2. 462 Unknown [id number] 2.840.1.009255.3.579.2. 462 Unknown [id number] 2.840.1.422372.3.579.2. 462 Unknown [id number] 2.840.1.196284.3.579.2. 462 Unknown [id number] 2.840.1.967111.3.579.2. 462 Unknown [id number] 2.840.1.843090.3.579.2. 462 Unknown [id number] 2.840.1.487068.3.579.2. 462 Unknown [id number] 2.840.1.390241.3.579.2. 462 Unknown [id number] 2.840.1.575377.3.579.2. 462 Unknown [id number] 2.840.1.625769.3.579.2. 462 Unknown [id number] 2.840.1.716828.3.579.2. 462 Unknown [id number] 2.840.1.112000.3.579.2. 462 Unknown [id number] 2.840.1.000210.3.579.2. 462 Unknown [id number] 2.840.1.195927.3.579.2. 462 Unknown [id number] 2.840.1.904782.3.579.2. 462 Unknown [id number] 2.0.1.828591.3.579.2. 462 Unknown [id number] 2.840.1.539645.3.579.2. 462 Unknown [id number] 2.0.1.521386.3.579.2. 462 Unknown [id number] 2.0.1.282493.3.579.2. 462 Social History Date Type Detail Facility Start: 03-14-2011 End: 07-19-2022 Tobacco smoking status NHIS Never smoked tobacco [facility] Start: 01-25-2022 End: 06-07-2025 Alcohol intake Current non-drinker of alcohol (finding) [facility] Start: 09-13-2020 End: 11-01-2022 History SDOH Alcohol Frequency 1 [facility] Start: 03-09-2020 History SDOH Social Connections Phone 5 [facility] Start: 03-09-2020 End: 11-01-2022 History SDOH Social Connections Get Together 2 [facility] Start: 03-09-2020 End: 11-01-2022 History SDOH Social Connections Mormonism 3 [facility] Start: 03-09-2020 End: 11-01-2022 History SDOH Social Connections Living 7 [facility] Start: 09-13-2020 End: 11-01-2022 History SDOH Financial 4 [facility] Start: 08-15-2020 Education 16 [facility] Start: 1980 Sex Assigned At Female C [facility] Start: 01-19-2022 End: 01-22-2023 Exposure to SARS-CoV-2 (event) Not sure [facility] Start: 02-06-2022 End: 02-04-2024 Tobacco smoking status NHIS Unknown if ever smoked [facility] Start: 05-15-2020 None [facility] Start: 05-15-2020 Alone [facility] Start: 05-05-2020 Non-smoker [facility] Start: 03-14-2011 End: 07-19-2022 Tobacco use and exposure Smokeless tobacco non-user [facility] Work Phone: Start: 11-01-2022 History SDOH Alcohol Std Drinks 0 [facility] Start: 11-01-2022 End: 05-17-2023 History of Social function [facility] Start: 11-01-2022 End: 05-17-2023 Social connection and isolation panel [facility] Do you belong to any clubs or organizations such as [facility] groups, [employer], [employer] or [employer] groups, or school groups? No [facility] Are you now , , , , never or living with a partner? Never [facility] How often to you hav e a drink containing alcohol? Never [facility] Start: 10-05-2012 How many standard drinks containing alcohol do you have on a typical day? Patient does not drink [facility] How hard is it for y ou to pay for the very basics like food, housing, medical care, and heating Not very hard [facility] Do you feel stress - tense, restless, nervous, or anxious, or unable to sleep at night because your mind is troubled all the time - these days [OSQ] Only a little [facility] (I/We) worried wheth er (my/our) food would run out before (I/we) got money to buy more. Never true [facility] Start: 05-27-2020 Gender identity Identifies as female gender (finding) [facility] Start: 05-27-2020 Sexual orientation Heterosexual (fin ding) [facility] Do you belong to any clubs or organizations such as [facility] groups, [employer], [employer] or [employer] groups, or school groups? Yes [facility] Start: 02-02-2025 Sex Female (finding) [facility] NEGATED: Highlighted row [facility] Medical Equipment Procedure Code Equipment Code Equipment Origin al Text Equipment Identifier Dates [id number], [id number] Start: 07-22-2018 Comment on above: Test blood [...] [AUDIT-C] 0 12/11/19 10:02 AM EST User, Fernt [facility] 12-11-2024 Within the last year , have you been humiliated or emotionally abused in other ways by your partner or ex-partner? No 12/11/2024 10:02 AM EST User, Katehart No [facility] 12-11-2024 Within the last year , have you been afraid of your partner or ex-partner? No 12/11/2024 10:02 AM EST User, Katehart No [facility] 12-11-2024 Within the last year , have you been raped or forced to have any kind of sexual activity by your partner or ex-partner? No 12/11/2024 10:02 AM EST User, Fernt No [facility] 12-11-2024 Within the last year , have you been kicked, hit, slapped, or otherwise physically hurt by your partner or ex-partner? No 12/11/2024 10:02 AM EST User, Fernt No [facility] 12-11-2024 How often to you hav e a drink containing alcohol? Never 12/11/2024 10:02 AM EST User, Mychart Never [facility] 12-11-2024 Functional status Patient does n ot drink 12/11/2024 10:02 AM EST User, Fernt Patient does not drink [facility] 12-11-2024 How often do you hav e 6 or more drinks on 1 occasion? Never 12/11/2024 10:02 AM EST User, Mychart Never [facility] 08-07-2023 Functional status Chair [facility] Work Phone: 10-22-2014 Are you deaf, or do you have serious difficulty hearing No 10/22/2014 10:49 AM EST Ashanti Goss Ma No [facility] 10-22-2014 Are you blind, or do you have serious difficulty seeing, even when wearing glasses No 10/22/2014 10:49 AM Ashanti Mejia Ma [facility] 10-22-2014 Do you have serious difficulty walking or climbing stairs No 10/22/2014 10:49 AM Ashanti Mejia Ma [facility] 10-22-2014 Do you have difficul ty dressing or bathing No 10/22/2014 10:49 AM Ashanti Mejia Ma [facility] 10-22-2014 Because of a physica l, mental, or emotional condition, do you have difficulty doing errands alone such as visiting a physician's office or shopping No 10/22/2014 10:49 AM Ashanti Mejia Ma [facility] Mental Status Date Assessment Result Facility 11-11-2024 Cognitive function Voice/Name [facility] Work Phone: 02-04-2024 Cognitive function Level Of Cons ciousness Awake;Alert;Appropriate [facility] Work Phone: 08-07-2023 Cognitive function Voice/Name [facility] Work Phone: 08-05-2023 Cognitive function Level Of Cons ciousness Awake;Alert;Appropriate;Fol lows Commands [facility] Work Phone: 05-20-2023 Cognitive function Level Of Cons ciousness Awake;Alert;Appropriate [facility] Work Phone: 12-03-2022 Cognitive function Level Of Cons ciousness Awake;Alert;Appropriate;Fol lows Commands [facility] Work Phone: 11-27-2022 Cognitive function Level Of Cons ciousness Awake;Alert;Appropriate [facility] Work Phone: 10-22-2014 Because of a physica l, mental, or emotional condition, do you have serious difficulty concentrating, remembering, or making decisions No 10/22/2014 10:49 AM Ashanti Mejia Ma [facility] Clinical Notes 12-06-2012 to 06-17-2025 Note Date & Type Note Facility 06-17-2025 Progress note [facility] 06-17-2025 Progress note Note Date/Time June 17, 2025 10:05am [facility] [address] [place] [address] OFFICE VISIT Date of Service: 06/17/25 MR#: [id number] Acct: [id number] Name: TORI GRAY Rep #: [id number] : 1980 Provider: CONCEPCIÓN Rehman Age/Sex: 45/F [place] [facility] Status: Signed Intake Vital Signs 05/06/25 10:04 Height 5 ft 7 in Intake Visit Reasons: Back pain Chief Complaint: low back pain Allergies Corticosteroids (Glucocorticoids) (steroids) Allergy (Verified 06/17/25 09:44) Hives lidocaine Adverse Reaction (Intermediate, Verified 06/17/25 09:44) Hives Medications ?Medication ?Instructions ?Recorded ?Confirmed ?Type blood sugar diagnostic (Blood #10 ea 04/26/20 06/17/25 History Glucose Test strips) ipratropium bromide 21 mcg (0.03 2 spray intranasal BI D PRN 08/23/20 06/17/25 History %) nasal spray allergies albuterol sulfate 90 mcg/actuation 2 puff inhalation Q 4H PRN 08/10/22 06/17/25 History aerosol inhaler shortness of breath or wheez ing fexofenadine 180 mg tablet 180 mg PO DAILY allergies 1 06/17/25 History (Allergy Relief (fexofenadine)) levonorgestrel 17.5 mcg/24 hr (up 1 device intrauterin e ONCE 08/10/22 06/17/25 History to 5 yrs) 19.5mg intrauterine control device tizanidine 4 mg tablet 4 mg PO Q8H PRN Muscle Spasm 08/10/22 06/17/25 History omeprazole 20 mg capsule,delayed 20 mg PO DAILY PRN ge rd 08/16/22 06/17/25 History release topiramate 100 mg tablet 100 mg PO BID seizures 08/1606/17/25 History fluoxetine 20 mg capsule 20 mg PO QHS mental health 0 12/28/22 06/17/25 History gabapentin 300 mg capsule 300 mg PO QHS nerve pain 06/17/25 History lisinopril 10 mg tablet 10 mg PO DAILY blood pressur e 12/28/22 06/17/25 History ondansetron HCl 4 mg tablet 4 mg PO Q8H PRN nausea 06/17/25 History rimegepant 75 mg disintegrating 75 mg PO DAILY PRN rosalina ray 02/04/24 06/17/25 History tablet (Nurtec ODT) headache semaglutide 0.25 mg or 0.5 mg (2 0.5 mg subcut QWEEK 1 12/17/23 06/17/25 History mg/3 mL) subcutaneous pen injector (Ozempic) PFSH Medical History Diabetes Fatty liver Gastric reflux BiPAP (biphasic positive airway pressure) dependence Sleep apnea Non-smoker History of stress test History of echocardiogram Cardiology follow-up encounter Abnormal ECG Prolonged Q-T interval on ECG [...] region Surgical History History of urethral stent (~2018) Hx laparoscopic cholecystectomy (~2005) H/O: (~2005) Family History Father Diabetes Myocardial infarction Pancreatic [...] low back, left neck pain Visit Number: 7 Details: Tori is a 45 y/o F here today to f/u with ongoing neck and low back pain. Pt.c/o achiness and mild pain in her neck and upper back. She rates her neck pain 2/10 today. She continues to have pain in her left shoulder. She is having surgery on her left shoulder with Dr. Quiroga. She reports tightness and mild pain in her low back today. She has been on vacation for a week and hasbeen relaxing so her pain is minimal at this time. She rates her low back pain 2/10. She treats pain at home by using a TENS unit and alternates Tylenol and Aleve as needed. Pt. denies numbness, tingling or radiculopathy. Pt. reports chiropractic adjustments are helpful in relieving her back pain and discomfort but it gradually returns. Location: L neck/back Duration: frequent Aggravating or associated factors: sitting, lifting,shoulder injury Relieving factors: chiro Pain Quality: aching, dull and sharp Exam Musc General: Yes normal posture, normal gait, joint tenderness and decreased range of motion Cervical Spine: Yes loss of normal cervical lordosis (mild anterior head carriage), Yes cervical muscular tenderness bilateral lower , Yes cervical spasmleft greater than right lower trapezius and paracervical muscles and Yes misalignment misalignment: C5, C6 and C7 Thoracic/Lumber: No thoracic and lumbar spine normal to inspection (decreased lordosis, edema at C/T junction), Yes paraspinal tenderness on the right greaterthan left (lumbopelvic) and on the left greater than right (upper/mid thoracic),Yes thoraco-lumbar spasm on the right greater than left (QL, lumbar paraspinal) and on the left greater than right (piriformis,trap) and Yes misalignment T1, T2, T3, T4, L3, L4, L5 and RIL Sacroiliac joints: on the right tender to palpation Office Procedures Procedures - Chiropractic Procedures Manipulation: Cervical C6, Lumbar L4, Thoracic T2 and Pelvis RIL Manipulation: 3-4 regions Traction, Mechanical: Yes Patient Response: positive Assessment and Plan Assessment and Plan (1) Disc displacement, lumbar: Status: Chronic (2) Segmental and somatic dysfunction of thoracic region: Status: Acute (3) Segmental and somatic dysfunction of pelvic region: Status: Acute (4) Segmental and somatic dysfunction of lumbar region: Status: Acute (5) Segmental and somatic dysfunction of cervical region: Status: Acute Orders: Orders Chiropractic Treatments Today M51.26 - Other intervertebral disc displacement, lumbar region, M54.17 - Radiculopathy, lumbosacral region, M99.01 - Segmental and somatic dysfunction of cervical region, M99.02 - Segmental and somatic dysfunction of thoracic region, M99.03 - Segmental and somatic dysfunction of lumbar region, M99.05 - Segmental and somatic dysfunction of pelvic region Plan Patient was treated without incident. Continue care as needed. Plan Details Goals & Barriers: Goals Decrease spasm Improve intersegmental motion Decrease pain Decrease HAs Barriers Disc bulge Follow Up: PRN Coding Level of Care Code No Charge Diagnoses Disc displacement, lumbar M51.26 Segmental and somatic dysfunction of thoracic region M99.02 Segmental and somatic dysfunction of pelvic region M99.05 Segmental and somatic dysfunction of lumbar region M99.03 Segmental and somatic dysfunction of cervical region M99.01 CPT Codes Procedures - Manipulation: 3-4 regions (38211) Procedures - Traction, Mechanical: Yes (35786) 06/17/25 1005 <Electronically signed by Bibiana Aguilar> Date _ Bibiana Rehman D.C. Cosigner Signature: Date (if applicable) CC: ~ [facility] Work Phone: 1(673) 730-599708-07-2025 Telephone encounter Note* Telephone Encounter - Juliana Murphy MA - 06/10/2025 2:17 PM EDT LDL Direct scanned to chart [facility]08-07-2025 Miscellaneous Notes* Telephone Encounter - Juliana Murphy MA - 06/10/2025 2:17 PM EDT LDL Direct scanned to chart * Telephone Encounter - Nirmala Storey LPN - 06/09/2025 12:53 PM EDT [employer] message sent to the patient. * Telephone Encounter - Ivette Grimes MD - 06/09/2025 10:48 AM EDT Lets increase the ozempic to 2 mg a day. Call sugars in two weeks. Watch the diet. * Telephone Encounter - Nirmala Storey LPN - 06/09/2025 10:20 AM EDT [facility] 7.4 documented in this encounterTr[facility] Telephone encounter Note * Telephone Encounter - Nirmala Storey LPN - 06/09/2025 12:53 PM EDT [facility] message sent to the patient. [facility]08-06-2025 Telephone encounter Note* Telephone Encounter - Ivette Grimes MD - 06/09/2025 10:48 AM EDT Lets increase the ozempic to 2 mg a day. Call sugars in two weeks. Watch the diet. [facility]08-06-2025 Telephone encounter Note* Telephone Encounter - Nirmala Storey LPN - 06/09/2025 10:20 AM EDT HgbA1C from [facility] 7.4 [facility]08-04-2025 NoteHNO ID: [id number] Author: IVETTE GRIMES MD Service: ? Author Type: Physician Type: Progress Notes Filed: 06/07/2025 19:06 Note Text: Tori Gray is a 44-year-old female with [...] for June [address] Quiroga at [facility]. - Follow-up appointment with Dr. Camacho for [...] 1 tablet by mouth once daily. Ipratropium Milton (ATROVENT) 21 mcg (0.03 %) nasal spray [...] 1 Each by INTRAUTERINE route as directed. Zhhzanrr-Ee-Phv-Fe-FA tab Take 1 tablet by mouth once [...] Age of Onset Alcohol/Drug Mother Heart Father AL Cancer Father PANCREATIC CANCER Diabetes Father Coronary Artery Disease Father Anxiety disorder Sister Depression Sister Depression Brother Cancer Maternal Grandmother LUNG CANCER Diabetes Maternal Grandfather Heart Paternal Grandmother TRIPLE BYPASS SURGERY S (more content not included)...[facility]08-04-2025 History of Present illness Narrative* Ivette Grimes MD - 06/07/2025 7:05 PM EDT Tori Gray is a 44-year-old female with a history of type 2 diabetes mellitus, anxiety, depression, migraines, and LETITIA, presenting for an annual wellness visit, with additional concerns about elevated blood glucose levels. HPI Annual Wellness Exam: - Last A1c was 6.6% six months ago. - Recent labs showed glucose 210 mg/dL, uric acid 6.9 mg/dL, phosphorus borderline low, ALT 43 U/L,cholesterol 187 mg/dL, triglycerides 310 mg/dL, HDL 33 mg/dL. - Denies urinary symptoms. - Denies cough, wheeze, or dyspnea. - Uses BiPAP regularly. - Upcoming shoulder surgery scheduled for June [address] Quiroga at [facility]. - Follow-up appointment with Dr. Camacho for [...] 4 hours asneeded for wheezing/shortness of breath. ondansetron (ZOFRAN) 4 [...] 1 tablet by mouth once daily. Ipratropium Milton (ATROVENT) 21 mcg (0.03 %) nasal spray [...] 1 Each by INTRAUTERINE route as directed. Dstmqdso-Gd-Ynt-Fe-FA tab Take 1 tablet by mouth once [...] Age of Onset Alcohol/Drug Mother Heart Father AL Cancer Father PANCREATIC CANCER Diabetes Father Coronary [...] history andsocial history today. REVIEW OF SYSTEMS Respiratory: (-) [...] Appointment scheduled for August 04 with Fatuma Cervantes to discuss resuming Botox treatment. 11. Encounter for screening mammogram for breast cancer (Z12.31) - Order for screening mammogram to be sent to [facility]. (See patient after visit summary for additional instructions to patient) Ivette Grimes MD Recording using uStudio software for draft documentation of the visit was discussed with the patient/authorized professional healthcare representative; all questions welcomed and answered. Patient/authorized professional healthcare representative agreed to proceed documented in this encounterTr[facility]ull [facility]08-[facility]-2025 Instructions* Patient Instructions* Ivette Grimes MD - 06/07/2025 7:01 PM [...] with Dr. Quiroga on June 23 at [facility]. - Keep your neurology appointment on [...] any new concerns arise. documented in this encounterTr[facility]06-[facility]-2025 Telephone encounter Note * Telephone Encounter - Ivette Grimes MD - 04/07/2025 3:34 PM EDT Requests refill. [facility]06-04-2025 Miscellaneous Notes* Telephone Encounter - Ivette Grimes MD - 04/07/2025 3:34 PM EDT Requests refill. documented in this encounterTrumbull [facility]05-29-2025 Telephone encounter Note * Telephone Encounter - Nakia Caraballo RN - 04/01/2025 12:45 PM EDT Botox approved until 11/03/25. Patient and scheduling made aware. She is a patient of Fatuma's butdue to her being out on maternity leave, patient will need scheduled with another FÉLIX. Saw Amanda on03/09/25. RIZWANA Hinkle RN [facility] Work Phone: 1(851) 222-554005-29-2025 Miscellaneous Notes* Telephone Encounter - Nakia Caraballo RN - 04/01/2025 12:45 PM EDT Botox approved until 11/03/25. Patient and scheduling made aware. She is a patient of Fatuma's butdue to her being out on maternity leave, patient will need scheduled with another FÉLIX. Saw Amanda on03/09/25. RIZWANA Hinkle RN documented in this encounterTrumbull [facility] Center05-16-2025 Telephone encounter Note * Telephone Encounter - Nakia Caraballo RN - 03/19/2025 3:14 PM EDT Botox referral sent to pharmacy as patient would like to restart botox. Last botox 09/03/24. TUNDE Hinkle RNN [facility] Work Phone: 1(287) 359-727505-16-2025 Miscellaneous Notes* Telephone Encounter - Nakia Caraballo RN - 03/19/2025 3:14 PM EDT Botox referral sent to pharmacy as patient would like to restart botox. Last botox 09/03/24. TUNDE Hinkle RNN documented in this encounterTrumbull Regional [facility] Center05-09-2025 Radiology Diagnostic study note [facility] Imaging Services [address] [place] [address] Shoulder min 2 Views MR#: [id number] Acct: [id number] Name: TORI GRAY Rep #: [id number] : 1980 F 44 From: Kaushik Newsome MD PCP: Dr. Ivette Grimes MD Status: REG C LI Study:Shoulder min 2 Views Date of Exam: 03/11/25 Exam# [id number] Ordering Dr: Brett Quiroga MD PROCEDURE: SHOULDER MIN 2 VIEWS 03/11/2025 REASON FOR EXAM: PAIN TECHNIQUE: Five views of the left shoulder COMPARISON: Left shoulder x-ray dated 05/03/2021. FINDINGS: The left shoulder is in anatomic alignment. There is no fracture or dislocationseen. No significantosteoarthritis is seen. RAD/Shoulder min 2 Views IMPRESSION: Unremarkable left shoulder series. Reading Location: [facility] CC: Dr. Brett Quiroga MD; Dr. Ivette Grimes MD ~ Supervisor [facility]: Signed [facility]05-06-2025 Evaluation note* Diagnosis Onset Date Resolution Status Admit Date Segmental and somatic dysfunction of cervical region acute [facility] 2024 9:17am Segmental and somatic dysfunction of lumbar region acute March 09, 2025 9:17am Segmental and somatic dysfunction of pelvic region acute March 09, 2025 9:17am Segmental and somatic dysfunction of thoracic region acute [facility] 2024 9:17am Disc displacement, lumbar chronic March 09, 2025 9:17am Left shoulder pain inactive March 222024 8:58am Back pain acute March 22, 2025 9:33am Segmental and somatic dysfunction of cervical region acute [facility] 2024 9:33am Segmental and somatic dysfunction of lumbar region acute March 22, 2025 9:33am Segmental and somatic dysfunction of pelvic region acute March 22, 2025 9:33am Segmental and somatic dysfunction of thoracic region acute [facility] 2024 9:33am Segmental and somatic dysfunction of [...] somatic dysfunction of cervical region acute J amina 2024 10:30am Segmental and somatic dysfunction of lumbar region acute May 10:30am Segmental and somatic dysfunction of pelvic region acute May 10:30am Segmental and somatic dysfunction of thoracic region acute J amina 2024 10:30am Disc displacement, lumbar chronic June 01, 2025 10:30am Segmental and somatic dysfunction of cervical region acute A ugust 2024 9:27am Segmental and somatic dysfunction of lumbar region acute Aug ust 2024 9:27am Segmental and somatic dysfunction of pelvic region acute Jun ust 2024 9:27am Segmental and somatic dysfunction of thoracic region acute A ugust 2024 9:27am Disc displacement, lumbar chronic June 17, 2025 9:27am [facility] Work Phone: 1(896) 762-594205-06-2025 History of Present illness Narrative* Amanda Arteaga PA-C - 03/09/2025 7:25 AM EDT Images from the original note were not included. [facility] for General Neurology New Patient Evaluation This [...] visit. Either the patient or their legal professional healthcare representative has been informed of the risks and benefits of -- and alternatives to -- treatment through a remote evaluation andconsents to proceed with the evaluation remotely. Confirmed verbally that the patient currently located in the [facility].Yes Confirmed verbally that the patient consents to being seen virtually today.Yes Confirmed verbally that the patient consents to being seen by a physician back office medical assistant.Yes CHIEF COMPLAINT: Botox for migraines Tori Gray is a 44 year old female with history of T2DM, LETITIA with BiPAP use, Anxiety, Kidneystones. She is unaccompanied Consult requested for an [...] 2. Gets botox for migraines with [facility]. Patient sustained fall and head injury [...] 4 hours asneeded for wheezing/shortness of breath. ondansetron (ZOFRAN) 4 [...] 1 tablet by mouth once daily. Ipratropium Milton (ATROVENT) 21 mcg (0.03 %) nasal spray [...] 1 Each by INTRAUTERINE route as directed. [place]-3 Fatty Acids (FISH OIL) 500 mg cap Take 1 capsule by mouth once daily. blood sugar diagnostic (BLOOD GLUCOSE TEST) test strip Test blood sugar(s) 1 times daily. Dx: Type 2 DM - Controlled E11.9 Insulin: Yes Lancets lancets Test blood sugar(s) 1 times daily. Dx: Type 2 DM - Controlled E11.9 Insulin: No Kxsmnnhg-Vd-Bmz-Fe-FA tab Take 1 tablet by mouth once [...] interview and examination showed normal level of consciousness,orientation, language, memory, praxis, and higher intellectual function Affect: Normal Speech: normal Cranial Nerves: III, IV, -EOMI: full. VII-face is symmetric without evidence of weakness. VIII-hearing intact. Strength: MAEW REVIEW OF STUDIES: Blood studies 07/04/2024: CMP and CBC unremarkable MRI brain wo contrast 02/28/2023: unremarkable IMPRESSION/PLAN: (G43.711) Intractable chronic migraine without aura and with status migrainosus (primary encounter diagnosis) Tori Gray is a 44 year old female with history of T2DM, LETITIA with BiPAP use, Anxiety, Kidneystones. Patient seen virtually today to repetition Botox [...] which included preparing to see the patient, [id number] patient care, completing clinical documentation, obtaining and/or [...] and wish to discuss any issues directly withme, please feel free to obtain one. 3. [...] (Sleep study not recommended) documented in this encounterTr[facility]ull [facility]05-06-2025 NoteHNO ID: [id number] Author: AMANDA ARTEAGA PA-C Service: ? Author Type: Physician Electric Refrigerator Preparer Type: Progress Notes Filed: 03/10/2025 07:59 Note Text: [facility] for General Neurology New Patient Evaluation This [...] visit. Either the patient or their legal professional healthcare representative has been informed of the risks and benefits of -- and alternatives to -- treatment through a remote evaluation and consents to proceed with the evaluation remotely. Confirmed verbally that the patient currently located in the [facility].Yes Confirmed verbally that the patient consents to being seen virtually today.Yes Confirmed verbally that the patient consents to being seen by a physician back office medical assistant.Yes CHIEF COMPLAINT: Botox for migraines Tori [...] 2. Gets botox for migraines with [facility]. Patient sustained fall and head injury 11/24/22 [...] time -Mobic 15 a (more content not included)...[facility]05-01-2025 Telephone encounter Note* Telephone Encounter - Beata Pitts LPN - 03/04/2025 2:41 PM EDT Tried contacting patient to confirm that she just wants to discuss botox rather than get injectionsfor her upcoming appt as it's a virtual visit, per [place]. Beata Pitts LPN March 04, 2025 2:42 PM [facility]05-01-2025 Miscellaneous Notes* Telephone Encounter - Beata Pitts LPN - 03/04/2025 2:41 PM EDT Tried contacting patient to confirm that she just wants to discuss botox rather than get injectionsfor her upcoming appt as it's a virtual visit, per [place]. Beata Pitts LPN March 04, 2025 2:42 PM documented in this encounterTrumbull [facility] Center04-29-2025 History of Present illness Narrative* Ivette Grimes MD - 03/02/2025 10:40 AM EDT Patient presents with: Follow Up HPI:This visit is a virtual encounter. It required patient-provider interaction for the medical decision making as documented below. Patient has elected to have a visit through distance medicine I have communicated my name and active licensure. The patient's identity and physical location wereverified at the time of this visit. Either the patient or their legal professional healthcare representative has been informed of the risks and benefits of -- and alternatives to -- treatment through a remote evaluation andconsents to proceed with the evaluation remotely. Wants [...] like me to send over referral at [facility]. They specialize in shoulders. Seen at optometry at [facility] for dilated vision check on February [...] 4 hours asneeded for wheezing/shortness of breath. ondansetron (ZOFRAN) 4 [...] 1 tablet by mouth once daily. Ipratropium Milton (ATROVENT) 21 mcg (0.03 %) nasal spray [...] 1 Each by INTRAUTERINE route as directed. [place]ima-3 Fatty Acids (FISH OIL) 500 mg cap Take 1 capsule by mouth once daily. blood sugar diagnostic (BLOOD GLUCOSE TEST) test strip Test blood sugar(s) 1 times daily. Dx: Type 2 DM - Controlled E11.9 Insulin: Yes Lancets lancets Test blood sugar(s) 1 times daily. Dx: Type 2 DM - Controlled E11.9 Insulin: No Wfvjqpil-Ek-Ohs-Fe-FA tab Take 1 tablet by mouth once [...] Age of Onset Alcohol/Drug Mother Heart Father AL Cancer Father PANCREATIC CANCER Diabetes Father Coronary [...] to call if any sideeffects or questions. No other nsaids while on [...] ORTHOPAEDICS Ivette Grimes MD documented in this encounterTrumbull [facility] Center04-29-2025 NoteHNO ID: [id number] Author: IVETTE GRIMES MD Service: ? Author [...] visit. Either the patient or their legal professional healthcare representative has been informed of the risks [...] like me to send over referral at [facility]. They specialize in shoulders. Seen at optometry at [facility] for dilated vision check on February [...] 1 tablet by mouth once daily. Ipratropium Milton (ATROVENT) 21 mcg (0.03 %) nasal spray [...] 1 Each by INTRAUTERINE route as directed. [place]-3 Fatty Acids (FISH OIL) 500 mg cap Take 1 capsule by mouth once daily. blood sugar diagnostic (BLOOD GLUCOSE TEST) test strip Test blood sugar(s) 1 times daily. Dx: Type 2 DM - Controlled E11.9 Insulin: Yes Lancets lancets Test blood sugar(s) 1 times daily. Dx: Type 2 DM - Controlled E11.9 Insulin: No Ytvryhmz-Sh-Jdf-Fe-FA tab Take 1 tablet by mouth once [...] Age of Onset Alcohol/Drug Mother Heart Father AL Cancer Father PANCREATIC CANCER Diabetes Father Coronary Artery Disease Father Anxiety disorder Sister Depression Sister Depression Brother Cancer Maternal Grandmother LUNG CANCER Diabetes Maternal Grandfather Heart Paternal Grandmother TRIPLE BYPASS SURGERY Social History Tobacco Use Smoking status: Never Smokeless tobacco: Never Vaping Use Vaping status: Never Used Substance Use Topics Alcohol use (more content not included)...[facility]04-03-2025 Evaluation note* Diagnosis Onset Date Resolution Status [...] displacement, lumbar chronic March 09, 2025 9:17am [facility] Work Phone: [phone]) 849-361804-03-2025 Evaluation note* Diagnosis Onset Date Resolution Status [...] Left shoulder pain inactive March 222024 8:58am [facility] Work Phone: 1([phone]) [phone] Evaluation note* Diagnosis Onset Date Resolution Status [...] of thoracic region acute M 2024 9:33am [place] [facility] Work Phone: [phone]) [phone] Evaluation note* Diagnosis Onset Date Resolution Status [...] and somatic dysfunction of cervical region acute [facility] 2024 9:33am Segmental and somatic dysfunction of lumbar region acute March 22, 2025 9:33am Segmental and somatic dysfunction of pelvic region acute March 22, 2025 9:33am Segmental and somatic dysfunction of thoracic region acute [facility] 2024 9:33am Segmental and somatic dysfunction of [...] region suspected April 05, 2025 1 0:22am [facility] Work Phone: 1(580) 195-395504-03-2025 Evaluation note* Diagnosis Onset Date Resolution Status [...] and somatic dysfunction of cervical region acute [facility] 2024 9:17am Segmental and somatic dysfunction of lumbar region acute March 09, 2025 9:17am Segmental and somatic dysfunction of pelvic region acute March 09, 2025 9:17am Segmental and somatic dysfunction of thoracic region acute [facility] 2024 9:17am Disc displacement, lumbar chronic March 09, 2025 9:17am Left shoulder pain inactive March 222024 8:58am Back pain acute March 22, 2025 9:33am Segmental and somatic dysfunction of cervical region acute [facility] 2024 9:33am Segmental and somatic dysfunction of lumbar region acute March 22, 2025 9:33am Segmental and somatic dysfunction of pelvic region acute March 22, 2025 9:33am Segmental and somatic dysfunction of thoracic region acute [facility] 2024 9:33am Segmental and somatic dysfunction of [...] displacement, lumbar chronic April 21, 2025 9:49am [facility] Work Phone: 1(155) 882-578104-03-2025 Evaluation note* Diagnosis Onset Date Resolution Status [...] and somatic dysfunction of cervical region acute [facility] 2024 9:17am Segmental and somatic dysfunction of [...] somatic dysfunction of pelvic region acute [facility] 2024 10:22am Segmental and somatic dysfunction of [...] Left shoulder pain inactive May 062024 10:02am [facility] Work Phone: 1(453) 765-727604-03-2025 Evaluation note* Diagnosis Onset Date Resolution Status [...] dysfunction of cervical region acute M 2024 9:17am Segmental and somatic dysfunction of lumbar region acute March 09, 2025 9:17am Segmental and somatic dysfunction of pelvic region acute March 09, 2025 9:17am Segmental and somatic dysfunction of thoracic region acute 2024 9:17am Disc displacement, lumbar chronic March [...] somatic dysfunction of pelvic region acute [facility] 2024 10:22am Segmental and somatic dysfunction of [...] somatic dysfunction of cervical region acute J amina 2024 10:30am Segmental and somatic dysfunction of lumbar region acute May 10:30am Segmental and somatic dysfunction of pelvic region acute May 10:30am Segmental and somatic dysfunction of thoracic region acute J amina 2024 10:30am Disc displacement, lumbar chronic June 01, 2025 10:30am [facility] Work Phone: 1([phone]) 868-106004-02-2025 Telephone encounter Note* Telephone Encounter - Evon [...] her know when it is ready for pickling operator. [facility]04-02-2025 Miscellaneous Notes* Telephone Encounter - [...] her know when it is ready for pickling operator. * Telephone Encounter - Mirna Santos MA - 02/01/2025 2:42 PM EDT Faxed form completed to [employer] with A1C and office note Mirna Santos MA * Telephone Encounter - Evon Philippe LPN - 01/29/2025 8:31 AM EDT [employer] RESPONSE. [facility] does not handle this review. Please visit [email or web address] to start a prior authorization or fax information to [phone]. Please include all supporting chart notes. You may contact [employer] at [phone]. WILL FAX PA REQUEST TO NUMBER PROVIDED. [...] needs PA due to dose change). Provider: [employer] Name: [facility] [employer] Phone number: [phone] Patient ID number: [id number] Pharmacy Name: [facility] Pharmacy Telephone number: [phone] documented in this encounterTrumbull [facility] Center03-31-2025 Telephone encounter Note * Telephone Encounter - Mirna Santos MA - 02/01/2025 2:42 PM EDT Faxed form completed to [employer] with A1C and office note Mirna Santos MA [facility]03-28-2025 Telephone encounter Note* Telephone Encounter - Evon Philippe LPN - 01/29/2025 8:31 AM EDT [employer] RESPONSE. [facility] does not handle this review. Please visit [email or web address] to start a prior authorization or fax information to [phone]. Please include all supporting chart notes. You may contact [employer] at [phone]. WILL FAX PA REQUEST TO NUMBER PROVIDED. Records faxed to for PA. [facility]03-27-2025 Telephone encounter Note* Telephone Encounter - Evon Philippe LPN - 01/28/2025 4:56 PM EDT Unable to complete electronically. Will try on covermymeds [facility]03-27-2025 Telephone encounter Note* Telephone Encounter - Evon Philippe LPN - 01/28/2025 4:55 PM EDT Electronic PA requested. [facility]03-27-2025 Telephone encounter Note* Telephone Encounter - Krystle Barnett RN - 01/28/2025 4:51 PM EDT Prior Authorization Documentation Prior authorization requested for the following medication: Medication: Ozempic 1 mg (all though PA done in Aug 2024 and approved until Aug 2025 this needs PA due to dose change). Provider: [employer] [facility] [employer] Phone number: [phone] Patient ID number: [id number] Pharmacy Name: [facility] Pharmacy Pharmacy Telephone number: [phone] [facility]03-27-2025 Telephone encounter Note* Telephone Encounter - Dennise Robles MA - 01/28/2025 8:45 AM EDT Scan on 01/28/2025 8:29 AM by ProviderSherry PA-C: BMP Scan on 01/28/2025 8:17 AM by ProviderSherry PA-C: HGB A1C [facility]03-27-2025 Miscellaneous Notes* Telephone Encounter - Dennise Robles MA - 01/28/2025 8:45 AM EDT Scan on 01/28/2025 8:29 AM by Sherry Mccallum PA-C: BMP Scan on 01/28/2025 8:17 AM by Sherry Mccallum PA-C: HGB A1C documented in this encounterTrumbull Regional Medical Center03-21-2025 NoteHNO ID: [id number] Author: IVETTE GRIMES MD Service: ? Author [...] 1 tablet by mouth once daily. Ipratropium Milton (ATROVENT) 21 mcg (0.03 %) nasal spray [...] 1 Each by INTRAUTERINE route as directed. [place]-3 Fatty Acids (FISH OIL) 500 mg cap Take 1 capsule by mouth once daily. blood sugar diagnostic (BLOOD GLUCOSE TEST) test strip Test blood sugar(s) 1 times daily. Dx: Type 2 DM - Controlled E11.9 Insulin: Yes Lancets lancets Test blood sugar(s) 1 times daily. Dx: Type 2 DM - Controlled E11.9 Insulin: No Roybzchr-Vw-Ovr-Fe-FA tab Take 1 tablet by mouth once [...] Age of Onset Alcohol/Drug Mother Heart Father AL Cancer Father PANCREATIC CANCER Diabetes Father Coronary [...] Wt Readings: Date: Wt: (more content not included)...[facility]03-21-2025 History of Present illness Narrative* Ivette [...] 1 tablet by mouth once daily. Ipratropium Milton (ATROVENT) 21 mcg (0.03 %) nasal spray [...] 1 Each by INTRAUTERINE route as directed. [place]-3 Fatty Acids (FISH OIL) 500 mg cap Take 1 capsule by mouth once daily. blood sugar diagnostic (BLOOD GLUCOSE TEST) test strip Test blood sugar(s) 1 times daily. Dx: Type 2 DM - Controlled E11.9 Insulin: Yes Lancets lancets Test blood sugar(s) 1 times daily. Dx: Type 2 DM - Controlled E11.9 Insulin: No Wwtvhdxw-Og-Plm-Fe-FA tab Take 1 tablet by mouth once [...] Age of Onset Alcohol/Drug Mother Heart Father AL Cancer Father PANCREATIC CANCER Diabetes Father Coronary [...] six months and prn. [facility] Telephone encounter Note * Telephone [...] Storey LPN December 25, 2024 8:58 AM [facility]02-21-[facility]25 Miscellaneous Notes* Telephone Encounter - [...] 25, 2024 8:58 AM documented in this encounterTr[facility]ull [facility]02-17-2025 Telephone encounter Note * Telephone Encounter - Jumana Harrell LPN - 12/21/2024 3:19 PM EST Patient notified of results, verbalizes understanding of instructions. Pt stated she is about 80% better with the z-pack and cough drops. Will call is get worse again. Jumana Harrell LPN [facility]02-17-2025 Miscellaneous Notes* Telephone Encounter - [...] zpack? Jenni Martínez APRN.GABRIELA documented in this encounterTrumbull [facility]02-17-2025 Telephone encounter Note * Telephone [...] improved with the zpack? Jenni Martínez APRN.CNP [facility] Work Phone: 1(106) 101-105402-07-2025 Telephone encounter Note* Telephone Encounter - Jumana Harrell LPN - 12/11/2024 2:24 PM EST Patient notified of results, verbalizes understanding of instructions. Jumana Harrell LPN [facility]02-07-2025 Miscellaneous Notes* Telephone Encounter - Jumana Harrell LPN - 12/11/2024 2:24 PM EST Patient notified of results, verbalizes understanding of instructions. Jumana Harrell LPN * Telephone Encounter - Jenni Martínez APRN.CNP - 12/11/2024 2:16 PM EST Can you please call the patient and let her know that I am still waiting for x- ray results from [facility]. I went ahead and sent [...] Provider: JENNI MARTÍNEZ APRN.CNP documented in this encounterTrumbull [facility]02-07-2025 Telephone encounter Note * Telephone Encounter - Jenni Martínez APRN.CNP - 12/11/2024 2:16 PM EST Can you please call the patient and let her know that I am still waiting for x- ray results from [facility]. I went ahead and sent [...] until gone. Authorizing Provider: JENNI MARTÍNEZ APRN.CNP [facility]02-07-[facility] Instructions* Patient Instructions* Jenni Martínez APRN.CNP - 12/11/2024 11:32 AM EST Get chest xray completed today May use Codeine cough syrup as needed for cough Stay well hydrated Follow up pending test results. documented in this encounterTr[facility]ull [facility] Center02-07-2025 History of Present illness Narrative* [...] 1 tablet by mouth once daily. Ipratropium Milton (ATROVENT) 21 mcg (0.03 %) nasal spray [...] 1 Each by INTRAUTERINE route as directed. [place]ima-3 Fatty Acids (FISH OIL) 500 mg cap Take 1 capsule by mouth once daily. blood sugar diagnostic (BLOOD GLUCOSE TEST) test strip Test blood sugar(s) 1 times daily. Dx: Type 2 DM - Controlled E11.9 Insulin: Yes Lancets lancets Test blood sugar(s) 1 times daily. Dx: Type 2 DM - Controlled E11.9 Insulin: No Kaunzcpi-Pm-Kwg-Fe-FA tab Take 1 tablet by mouth once daily. No current facility-administered medications for this visit. FAMILY HISTORY Problem Relation Age of Onset Alcohol/Drug Mother Heart Father AL Cancer Father PANCREATIC CANCER Diabetes Father Coronary [...] discussed and patient voices understanding. Jenni Martínez APRN.POLYGRAPH EXAMINER This note was partially generated using [employer] recognition system. Note was reviewed for accuracy. There may be minor misspellings or grammar miscues with [employer] voice recognition. documented in this encounterTrumbull [facility] Center02-07-2025 NoteHNO ID: [id number] Author: JENNI MARTÍNEZ APRN.GABRIELA Service: ? Author Type: Nurse Practitioner [...] 1 tablet by mouth once daily. Ipratropium Milton (ATROVENT) 21 mcg (0.03 %) nasal spray [...] 1 Each by INTRAUTERINE route as directed. [place]-3 Fatty Acids (FISH OIL) 500 mg cap Take 1 capsule by mouth once daily. blood sugar diagnostic (BLOOD GLUCOSE TEST) test strip Test blood sugar(s) 1 times daily. Dx: Type 2 DM - Controlled E11.9 Insulin: Yes Lancets lancets Test blood sugar(s) 1 times daily. Dx: Type 2 DM - Controlled E11.9 Insulin: No Tbdhalzv-Dx-Cvb-Fe-FA tab Take 1 tablet by mouth once daily. No current facility-administered medications for this visit. FAMILY HISTORY Problem Relation Age of Onset Alcohol/Drug Mother Heart Father AL Cancer Father PANCREATIC CANCER Diabetes Father Coronary [...] : No history o (more content not included)...[facility] 12-11-2024 Telephone encounter Note* Telephone Encounter - Brittney Meredith RN - 12/11/2024 8:17 AM EST Patient calling to make appt for evaluation of respiratory sx's that began approx 4 weeks ago. Pt states she feels she may have bronchitis or pneumonia. States she was at [facility] ER last month due to [...] evaluation of respiratory sx's. Brittney Meredith RN [place] 99047-07-2025 Miscellaneous Notes* Telephone Encounter - Brittney Meredith RN - 12/11/2024 8:17 AM EST Patient calling to make appt for evaluation of respiratory sx's that began approx 4 weeks ago. Pt states she feels she may have bronchitis or pneumonia. States she was at [facility] ER last month due to [...] sx's. Brittney Meredith RN documented in this encounterTr[facility]01-22-2025 Telephone encounter Note * Telephone [...] Eric LPN November 25, 2024 2:23 PM [facility]01-22-2025 Miscellaneous Notes* Telephone Encounter - [...] Thank you. Stephanie Parsons. documented in this encounterTrumbull [facility] Medical Center01-22-2025 Telephone encounter Note * Telephone [...] found Please advise. Thank you. Stephanie Parsons. [facility]01-20-2025 Telephone encounter Note* Telephone Encounter - [...] Judith Cueto November 23, 2024 12:34 PM [facility]01-20-2025 Miscellaneous Notes* Telephone Encounter - Judith [...] 23, 2024 12:34 PM documented in this encounterTrumbull [facility] Center01-14-2025 NotePatient Outreach (FAMPWS) TORI GRAY ([id number]) 1980 F Date Time Provider Department 11/17/24 [facility] During your visit today, we recorded the following information about you: Allergies As of Date: 11/17/2024 Noted Allergy Reaction FARXIGA (DAPAGLIFLOZIN) 08/05/2024 8 - GI Upset LIDOCAINE 12/24/2019 4 - Hives METFORMIN 08/05/2024 8 - GI Upset STEROIDS (BETAMETHASONE DIPROPION*12/21/2021 4 - Hives Date Reviewed: 09/03/2024 Reviewed by: Fatuma Beckford PA-C - Fully Assessed Visit Diagnosis:Encounter for screening mammogram for breast cancer [Z12.31] Order(s):[facility] [[id number]] Order #: [id number] FUTURE Prescriptions as of 12/18/2024 - potassium [...] tablet by mouth once daily. - Ipratropium Milton (ATROVENT) 21 mcg (0.03 %) nasal spray [...] Each by INTRAUTERINE route as directed. - [place]ima-3 Fatty Acids (FISH OIL) 500 mg cap Take 1 capsule by mouth once daily. - blood sugar diagnostic (BLOOD GLUCOSE TEST) test strip Test blood sugar(s) 1 times daily. Dx: Type 2 DM - Controlled E11.9 Insulin: Yes - Lancets lancets Test blood sugar(s) 1 times daily. Dx: Type 2 DM - Controlled E11.9 Insulin: No - Nlorzgvi-Hq-Nyl-Fe-FA tab Take 1 tablet by mouth once [...] 05/06/2009 01/23/2010 Routine general medical examination at [facility]*01/23/2010 12/06/2012 Class: Chronic Routine gynecological examination [Z01.419] 01/23/2010 02/22/2014 Class: Chronic Morbid Obesity [E66.01] 01/23/2010 Lumbar Disc Disorder [M51.9] 02/16/2010 Routine general medical examination at [facility]*12/06/2012 02/22/2014 Anxiety [F41.9] 06/07/2014 Type 2 [...] type 2 diabetes m (more content not included)...[facility]12-23-2024 Telephone encounter Note* Telephone Encounter - [...] [place] RN October 26, 2024 7:53 PM [facility]12[facility] Miscellaneous Notes* Telephone Encounter - [...] 26, 2024 7:53 PM documented in this encounterTrumbull Regional Medical Center12-16-2024 History of Present illness Narrative* [...] visit. Either the patient or their legal professional healthcare representative has been informed of the risks [...] hours asneeded for wheezing/shortness of breath. Ipratropium Milton (ATROVENT) 21 mcg (0.03 %) nasal spray [...] 1 Each by INTRAUTERINE route as directed. [place]-3 Fatty Acids (FISH OIL) 500 mg cap Take 1 capsule by mouth once daily. blood sugar diagnostic (BLOOD GLUCOSE TEST) test strip Test blood sugar(s) 1 times daily. Dx: Type 2 DM - Controlled E11.9 Insulin: Yes Lancets lancets Test blood sugar(s) 1 times daily. Dx: Type 2 DM - Controlled E11.9 Insulin: No Uxvrpghz-Od-Qxf-Fe-FA tab Take 1 tablet by mouth once [...] Age of Onset Alcohol/Drug Mother Heart Father AL Cancer Father PANCREATIC CANCER Diabetes Father Coronary [...] TABLET Ivette Grimes MD documented in this encounterTrumbull [facility] Center12-16-2024 NoteHNO ID: [id number] Author: IVETTE GRIMES MD Service: ? Author [...] visit. Either the patient or their legal professional healthcare representative has been informed of the risks [...] as needed for wheezing/shortness of breath. Ipratropium Milton (ATROVENT) 21 mcg (0.03 %) nasal spray [...] 1 Each by INTRAUTERINE route as directed. [place]akima-3 Fatty Acids (FISH OIL) 500 mg cap Take 1 capsule by mouth once daily. blood sugar diagnostic (BLOOD GLUCOSE TEST) test strip Test blood sugar(s) 1 times daily. Dx: Type 2 DM - Controlled E11.9 Insulin: Yes Lancets lancets Test blood sugar(s) 1 times daily. Dx: Type 2 DM - Controlled E11.9 Insulin: No Knzbdtyl-Hz-Kql-Fe-FA tab Take 1 tablet by mouth once [...] Age of Onset Alcohol/Drug Mother Heart Father AL Cancer Father PANCREATIC CANCER Diabetes Father Coronary [...] wheeze. No pallor. ASSESSM (more content not included)...[facility]12-16-2024 Evaluation note* Diagnosis Onset Date Resolution Status Admit Date Segmental and somatic dysfunction of lumbar region acute Oct emb2023 8:57am Segmental and somatic dysfunction of pelvic region acute Oct emb2023 8:57am Segmental and somatic dysfunction of thoracic region acute October 19, 024 8:57am Disc displacement, lumbar chronic October 19, 2024 8:57am [facility] Work Phone: 1(994) 724-339011-21-2024 History of Present illness Narrative* Ivette Grimes [...] visit. Either the patient or their legal professional healthcare representative has been informed of the risks [...] No increased caffeine. Sugars are increased recently [phone]'s. Not coming down as much as it [...] hours asneeded for wheezing/shortness of breath. Ipratropium Milton (ATROVENT) 21 mcg (0.03 %) nasal spray [...] 1 Each by INTRAUTERINE route as directed. [place]akima-3 Fatty Acids (FISH OIL) 500 mg cap Take 1 capsule by mouth once daily. blood sugar diagnostic (BLOOD GLUCOSE TEST) test strip Test blood sugar(s) 1 times daily. Dx: Type 2 DM - Controlled E11.9 Insulin: Yes Lancets lancets Test blood sugar(s) 1 times daily. Dx: Type 2 DM - Controlled E11.9 Insulin: No Ynfvgsrw-Xg-Mmm-Fe-FA tab Take 1 tablet by mouth once [...] Age of Onset Alcohol/Drug Mother Heart Father AL Cancer Father PANCREATIC CANCER Diabetes Father Coronary [...] weeks Ivette Grimes MD documented in this encounterTr[facility]ull [facility] Center11-21-2024 NoteHNO ID: [id number] Author: IVETTE GRIMES MD Service: ? Author [...] visit. Either the patient or their legal professional healthcare representative has been informed of the risks [...] No increased caffeine. Sugars are increased recently 217=772's. Not coming down as much as it [...] as needed for wheezing/shortness of breath. Ipratropium Milton (ATROVENT) 21 mcg (0.03 %) nasal spray [...] 1 Each by INTRAUTERINE route as directed. [place]akima-3 Fatty Acids (FISH OIL) 500 mg cap Take 1 capsule by mouth once daily. blood sugar diagnostic (BLOOD GLUCOSE TEST) test strip Test blood sugar(s) 1 times daily. Dx: Type 2 DM - Controlled E11.9 Insulin: Yes Lancets lancets Test blood sugar(s) 1 times daily. Dx: Type 2 DM - Controlled E11.9 Insulin: No Aibilltb-Mh-Uuh-Fe-FA tab Take 1 tablet by mouth once [...] Age of Onset Alcohol/Drug Mother Heart Father AL Cancer Father PANCREATIC CANCER Diabetes Father Coronary [...] Wt Readings: Date: Wt: (more content not included)...[facility]10-31-2024 Instructions* Patient Instructions* Fatuma Beckford PA-C [...] office for further instructions. documented in this encounterTrumbull [facility] Center10-31-2024 NoteHNO ID: [id number] Author: FATUMA BECKFORD PA-C Service: ? 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 Estimates 5 migraines since march. [facility] History of Present illness Narrative* Fatuma Beckford [...] for migraine Informed Consent Consent Obtained: Written Powell Protocol A moment to CARE was completed [...] applicable Written Consent Obtained: Written LOT #: [id number] Expiration Date: Month: : 2025 Second vial: LOT #: [id number] Expiration Date: Month: 12 Year: 2025 Injection Sites Left (Units) Left (Sites) Right (Units) Right (Sites) TOTAL (Units) Automobile Radio Repairer 5 1 5 1 10 Procerus Units: [...] march. Fatuma Beckford PA-C documented in this encounterTrumbull [facility] Center10-29-2024 Telephone encounter Note * Telephone Encounter - Rebecca Baker - 09/01/2024 4:08 PM EDT Tori was Ok'ed to get her botox appointment moved into a new patient time due to frequent rescheduling of this visit. She is now scheduled for 09/03. She has also requested a refill of her Nurtec ODT medication. Please adviseRebecca [facility]10-29-2024 Miscellaneous Notes* Telephone Encounter - Rebecca Baker - 09/01/2024 4:08 PM EDT Tori was Ok'ed to get her botox appointment moved into a new patient time due to frequent rescheduling of this visit. She is now scheduled for 09/03. She has also requested a refill of her Nurtec ODT medication. Please adviseRebecca documented in this encounterTrumbull [facility] Center10-29-2024 Telephone encounter Note * Telephone [...] with this date and time. Rebecca Baker [facility]10-29-2024 Miscellaneous Notes* Telephone Encounter - [...] Nieto - 09/01/2024 3:30 PM EDT 09/10 [place] to 10/08 and put on wait list. Provider will be out of office. 1st attempt to notify pt, sent MC message. documented in this encounterTrumbull [facility] Medical Center10-29-2024 Telephone encounter Note * Telephone Encounter - Tala Wilson - 09/01/2024 3:54 PM EDT Patient read mychart [facility]10-29-2024 Telephone encounter Note* Telephone Encounter - Steph Nieto - 09/01/2024 3:30 PM EDT 09/10 [facility] appt rescheduled to 10/08 and put on wait list. Provider will be out of office. 1st attempt to notify pt, sent MC message. [facility]10-[facility] Telephone encounter Note* Telephone Encounter - Steph Nieto - 08/11/2024 3:58 PM EDT Pt read MC message. [facility]10-08-[facility] Miscellaneous Notes* Telephone Encounter - Steph Nieto - 08/11/2024 3:58 PM EDT Pt read MC message. * Telephone Encounter - Steph Nieto - 08/11/2024 3:32 PM EDT [facility] appt on 09/10 moved to 3 PM. 1st attempt to notify pt, sent MC message. documented in this encounterTrumbull [facility] Center10-08-2024 Telephone encounter Note * Telephone Encounter - Steph Nieto - 08/11/2024 3:32 PM EDT [facility] appt on 09/10 moved to 3 PM. 1st attempt to notify pt, sent MC message. [facility]10-08-[facility] Telephone encounter Note* Telephone Encounter [...] Salmon MA August 11, 2024 11:06 AM [facility]10-08-2024 Miscellaneous Notes* Telephone Encounter - [...] 11, 2024 11:06 AM documented in this encounterTrumbull Regional Medical Center10-03-2024 Telephone encounter Note * Telephone Encounter - Dennise Robles MA - 08/06/2024 10:38 AM EDT APPROVAL. [employer]. EOC # [id number] VALIDITY DATES 08/06/24-08/05/25 Pharmacy informed. Dennise Robles MA [facility]10-03-2024 Miscellaneous Notes* Telephone Encounter - Dennise Robles MA - 08/06/2024 10:38 AM EDT APPROVAL. SAGE. EOC # [id number] VALIDITY DATES 08/06/24-08/05/25 Pharmacy informed. Dennise Robles MA documented in this encounterTrumbull Regional Medical Center10-02-2024 NoteHNO ID: [id number] Author: IVETTE GRIMES MD Service: ? 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 Excited for this because will not be as physical. Reviewed labs recently done at [facility]. A1c was 6.7. ldl was [...] as needed for wheezing/shortness of breath. Ipratropium Milton (ATROVENT) 21 mcg (0.03 %) nasal spray [...] 1 Each by INTRAUTERINE route as directed. [place]-3 Fatty Acids (FISH OIL) 500 mg cap Take 1 capsule by mouth once daily. blood sugar diagnostic (BLOOD GLUCOSE TEST) test strip Test blood sugar(s) 1 times daily. Dx: Type 2 DM - Controlled E11.9 Insulin: Yes Lancets lancets Test blood sugar(s) 1 times daily. 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 Excited for this because will not be as physical. Reviewed labs recently done at [facility]. A1c was 6.7. ldl was [...] hours asneeded for wheezing/shortness of breath. Ipratropium Milton (ATROVENT) 21 mcg (0.03 %) nasal spray [...] 1 Each by INTRAUTERINE route as directed. [place]-3 Fatty Acids (FISH OIL) 500 mg cap Take 1 capsule by mouth once daily. blood sugar diagnostic (BLOOD GLUCOSE TEST) test strip Test blood sugar(s) 1 times daily. Dx: Type 2 DM - Controlled E11.9 Insulin: Yes Lancets lancets Test blood sugar(s) 1 times daily. Dx: Type 2 DM - Controlled E11.9 Insulin: No Mkbbosxh-Wl-Zco-Fe-FA tab Take 1 tablet by mouth once [...] Age of Onset Alcohol/Drug Mother Heart Father AL Cancer Father PANCREATIC CANCER Diabetes Father Coronary [...] stable. Ivette Grimes MD documented in this encounterTrumbull [facility] Center09-23-2024 Telephone encounter Note * Telephone [...] Yoon LPN July 27, 2024 8:45 AM [facility]09-23-2024 Miscellaneous Notes* Telephone Encounter - [...] 27, 2024 8:45 AM documented in this encounterTrumbull [facility] Center09-17-2024 Telephone encounter Note * Telephone Encounter - Ingrid Salmon MA - 07/21/2024 3:02 PM EDT Pt notified. Requested to have order faxed to [facility]. Order faxed. Ingrid Salmon MA [facility]09-17-2024 Miscellaneous Notes* Telephone Encounter - Ingrid Salmon MA - 07/21/2024 3:02 PM EDT Pt notified. Requested to have order faxed to [facility]. Order faxed. Ingrid Salmon MA [...] advise, Gale Bower RN documented in this encounterTrumbull Regional Medical Center09-17-2024 Telephone encounter Note * Telephone Encounter - Ivette Grimes MD - 07/21/2024 2:18 PM EDT ordered [facility]09-17-2024 Telephone encounter Note* Telephone Encounter - Gale Bower RN - 07/21/2024 1:45 PM EDT Patient calls and states that cough is not getting any better. Patient states that Dr. Grimes had told her that if cough had not improved that provider wanted to order her a chest xray. Please review and advise, Gale Bower RN [facility]09-06-2024 Telephone encounter Note* Telephone Encounter - Nirmala Storey LPN - 07/10/2024 11:16 AM EDT Left detailed message for patient. [facility]09-06-2024 Miscellaneous Notes* Telephone Encounter - Nirmala Storey LPN - 07/10/2024 11:16 AM EDT Left detailed message for patient. * Telephone Encounter - Ivette Girmes MD - 07/10/2024 11:11 AM EDT Rx [...] advise, Gale Bower RN documented in this encounterTrumbull Regional [facility] Center09-06-2024 Telephone encounter Note * Telephone Encounter - Ivette Grimes MD - 07/10/2024 11:11 AM EDT Rx sent for farxiga. Lets try this Call sugars in two weeks. [facility]09-05-20[facility] Telephone encounter Note* Telephone Encounter [...] Please review and advise, Gale Bower RN [facility]09-04-2024 Telephone encounter Note* Telephone Encounter - Ivette Grimes MD - 07/08/2024 2:03 PM EDT noted [facility]09-04-2024 Miscellaneous Notes* Telephone Encounter - Ivette Grimes MD - 07/08/2024 2:03 PM EDT noted * Telephone Encounter - Dennise Robles MA - 07/08/2024 1:13 PM EDT Labs in chart review. Dennise Robles MA documented in this encounterTrumbull Regional [facility] Center09-04-2024 Telephone encounter Note * Telephone Encounter - Dennise Robles MA - 07/08/2024 1:13 PM EDT Labs in chart review. Dennise Robles MA [facility]08-30-2024 NoteHNO ID: [id number] Author: IVETTE GRIMES MD Service: ? Author [...] as needed for wheezing/shortness of breath. Ipratropium Milton (ATROVENT) 21 mcg (0.03 %) nasal spray [...] 1 Each by INTRAUTERINE route as directed. [place]-3 Fatty Acids (FISH OIL) 500 mg cap Take 1 capsule by mouth once daily. blood sugar diagnostic (BLOOD GLUCOSE TEST) test strip Test blood sugar(s) 1 times daily. Dx: Type 2 DM - Controlled E11.9 Insulin: Yes Lancets lancets Test blood sugar(s) 1 times daily. Dx: Type 2 DM - Controlled E11.9 Insulin: No Orfezwun-Zm-Zke-Fe-FA tab Take 1 tablet by mouth once [...] Age of Onset Alcohol/Drug Mother Heart Father AL Cancer Father PANCREATIC CANCER Diabetes Father Coronary [...] equally round and reacti (more content not included)...[facility]08-30-2024 History of Present illness Narrative* Ivette [...] hours asneeded for wheezing/shortness of breath. Ipratropium Milton (ATROVENT) 21 mcg (0.03 %) nasal spray [...] 1 Each by INTRAUTERINE route as directed. [place]ima-3 Fatty Acids (FISH OIL) 500 mg cap Take 1 capsule by mouth once daily. blood sugar diagnostic (BLOOD GLUCOSE TEST) test strip Test blood sugar(s) 1 times daily. Dx: Type 2 DM - Controlled E11.9 Insulin: Yes Lancets lancets Test blood sugar(s) 1 times daily. Dx: Type 2 DM - Controlled E11.9 Insulin: No Omvctucd-Bk-Uub-Fe-FA tab Take 1 tablet by mouth once [...] 2006: DELIVERY ONLY Comment: , low cervical 12/16/08: INSERT INTRAUTERINE DEVICE Comment: [facility] 2006: LAPAROSCOPY SURG CHOLECYSTECTOMY Comment: Cholecystectomy, lap (Rowena Monet) 2019: PAST SURGICAL HISTORY OF Comment: stent into kidney 07/13/2010: REMOVE IUD FAMILY HISTORY Problem Relation Age of Onset Alcohol/Drug Mother Heart Father AL Cancer Father PANCREATIC CANCER Diabetes Father Coronary [...] follow up or prn documented in this encounterTr[facility]08-24-2024 Telephone encounter Note * Telephone [...] Lazo LPN June 27, 2024 11:35 AM [facility]08-[facility]24 Miscellaneous Notes* Telephone Encounter - [...] 27, 2024 11:35 AM documented in this encounterTrumbull [facility] Center08-24-2024 Telephone encounter Note * Telephone [...] Lazo LPN June 27, 2024 11:29 AM [facility]08-24-2024 Miscellaneous Notes* Telephone Encounter - [...] 27, 2024 11:29 AM documented in this encounterTrumbull [facility] Center08-08-2024 Telephone encounter Note * Telephone Encounter - Lubna De La Garza APRN.CNP - 06/11/2024 12:40 PM EDT Ángel Rodriges were ordered. [facility]08-08-2024 Miscellaneous Notes* Telephone Encounter - Lubna De La Garza APRN.CNP - 06/11/2024 12:40 PM EDT Brunaon Antelmo were ordered. * Telephone Encounter - Ingrid Salmon MA - 06/11/2024 12:25 PM EDT See [employer] message documented in this encounterTrumbull [facility] Center08-08-2024 Telephone encounter Note * Telephone Encounter - Ingrid Salmon MA - 06/11/2024 12:25 PM EDT See [employer] message [facility]08-01-2024 Telephone encounter Note* Telephone Encounter - Claribel Wright LPN - 06/04/2024 3:37 PM EDT Prior Auth Determination: Denied with Cover my meds. Received via: CMM Medication/ Treatment: Nurtec Reason: Outcome N/A today by [facility] Prior Authorization Department does not manage Prior Authorizations for this plan. Please contact member services phone number on the back of the member ID card. Appeal Information (if included): Re submitted via RX Benefits Faxed to [phone] Confirmation received [facility]08-01-2024 Miscellaneous Notes* Telephone Encounter - Claribel Wright LPN - 06/04/2024 3:37 PM EDT Prior Auth Determination: Denied with Cover my meds. Received via: CMM Medication/ Treatment: Nurte Reason: Outcome N/A today by [facility] Prior Authorization Department does not manage Prior Authorizations for this plan. Please contact member services phone number on the back of the member ID card. Appeal Information (if included): Re submitted via RX Benefits Faxed to [phone] Confirmation received * Telephone Encounter - Claribel Wright LPN - 06/04/2024 2:22 PM EDT Prior Authorization PENDING Prior Authorization Request From: [facility] Medication/ Treatment: Nurtec Submitted Via Cover My Meds Reference# (if available): (Santos: [id number]) documented in this encounterTrumbull [facility] Center08-01-2024 Telephone encounter Note * Telephone Encounter - Claribel Wright LPN - 06/04/2024 2:22 PM EDT Prior Authorization PENDING Prior Authorization Request From: [facility] Medication/ Treatment: Nurtec Submitted Via Cover My Meds Reference# (if available): (Santos: [id number]) [facility]07-31-2024 History of Present illness Narrative* Ivette Grimes [...] visit. Either the patient or their legal professional healthcare representative has been informed of the risks [...] hours asneeded for wheezing/shortness of breath. Ipratropium Milton (ATROVENT) 21 mcg (0.03 %) nasal spray [...] 1 Each by INTRAUTERINE route as directed. [place]ima-3 Fatty Acids (FISH OIL) 500 mg cap Take 1 capsule by mouth once daily. blood sugar diagnostic (BLOOD GLUCOSE TEST) test strip Test blood sugar(s) 1 times daily. Dx: Type 2 DM - Controlled E11.9 Insulin: Yes Lancets lancets Test blood sugar(s) 1 times daily. Dx: Type 2 DM - Controlled E11.9 Insulin: No Muzaqpim-Yg-Tbp-Fe-FA tab Take 1 tablet by mouth once [...] Age of Onset Alcohol/Drug Mother Heart Father AL Cancer Father PANCREATIC CANCER Diabetes Father Coronary [...] issues. Ivette Grimes MD documented in this encounterTrumbull [facility] Center07-10-2024 Telephone encounter Note * Telephone [...] Lazo LPN May 13, 2024 11:29 AM [facility]07-10-2024 Miscellaneous Notes* Telephone Encounter - [...] 13, 2024 11:29 AM documented in this encounterTrumbull [facility] Center06-28-2024 Telephone encounter Note * Telephone Encounter - Cindy Edouard APRN.CNP - 05/01/2024 12:08 PM EDT Script sent. Cindy Edouard APRN.CNP [facility] Work Phone: 1(420) 700-283406-28-2024 Miscellaneous Notes* Telephone Encounter - Cindy Edouard APRN.CNP - 05/01/2024 12:08 PM EDT Script sent. Cindy Edouard APRN.CNP * Telephone Encounter - Rukhsana Wood - 05/01/2024 11:47 AM EDT Tori is calling Ivette Grmies MD today to request a medication not on current med list: Tizanidine 4 mg tablet taking every 8 hours as needed #60 refill 0 Pharmacy [facility] Please send today if possible, patient is out of this [facility] Patient has been identified by name and birthdate. Duration of symptoms: N/A Person calling: self Call patient at: on cell [phone] (home) [phone] (work) [phone] (cell) Was an appointment scheduled: No Closing statement: Results or non-symptom based questions: Thank you for calling [facility], your call will be returned within the next business day. Rukhsana Guerrero documented in this encounterTrumbull Regional Medical Center06-28-2024 Telephone encounter Note * Telephone Encounter - Rukhsana Wood - 05/01/2024 11:47 AM EDT Tori is calling Ivette Grimes MD today to request a medication not on current med list: Tizanidine 4 mg tablet taking every 8 hours as needed #60 refill 0 Pharmacy [facility] Please send today if possible, patient is out of this [facility] Patient has been identified by name and birthdate. Duration of symptoms: N/A Person calling: self Call patient at: on cell [phone] (home) [phone] (work) [phone] (cell) Was an appointment scheduled: No Closing statement: Results or non-symptom based questions: Thank you for calling [facility], your call will be returned within the next business day. Rukhsana Guerrero [facility]06-17-2024 Telephone encounter Note* Telephone Encounter [...] France RN April 20, 2024 11:22 AM T [facility]06-17-2024 Miscellaneous Notes* Telephone Encounter - [...] 20, 2024 11:22 AM documented in this encounterTrumbull [facility] Medical Center06-17-2024 Telephone encounter Note * Telephone [...] Yoon LPN April 20, 2024 10:56 AM [facility]06-17-2024 Miscellaneous Notes* Telephone Encounter - [...] 20, 2024 10:56 AM documented in this encounterTrumbull [facility] Medical Center06-12-2024 Telephone encounter Note * Telephone Encounter - Mirna Santos MA - 04/15/2024 12:33 PM EDT PA approved till 04/14/2025. Faxed approval to pharmacy and patient left vm Mirna Santos MA [facility]06-12-2024 Miscellaneous Notes* Telephone Encounter - Mirna Santos MA - 04/15/2024 12:33 PM EDT PA approved till 04/14/2025. Faxed approval to pharmacy and patient left Mirna Santos MA * Telephone Encounter - Mirna Santos MA - 04/15/2024 8:42 AM EDT Submitted PA through [employer] for Trulicity 0.75 mg. Form faxed with office notes and A1c results Mirna Santos MA documented in this encounterTrumbull Regional Medical Center06-12-2024 Telephone encounter Note * Telephone Encounter - Mirna Santos MA - 04/15/2024 8:42 AM EDT Submitted PA through [employer] for Trulicity 0.75 mg. Form faxed with office notes and A1c results Mirna Santos MA [facility]06-11-2024 Telephone encounter Note* Telephone Encounter - Sheron Anne - 04/14/2024 9:01 AM EDT Last: 02/15/2023 Noted-Follow up in 3 months. Consider transfer of care back to PCP if patient does well on the current dose of her medication atthe next visit. It does not appear that you have seen her since [facility]06-11-2024 Miscellaneous Notes* Telephone Encounter - Sheron Anne - 04/14/2024 9:01 AM EDT Last: 02/15/2023 Noted-Follow up in 3 months. Consider transfer of care back to PCP if patient does well on the current dose of her medication atthe next visit. It does not appear that you have seen her since documented in this encounterTrumbull Regional Medical Center06-03-2024 Telephone encounter Note * Telephone Encounter - Darrion Severino MA - 04/06/2024 2:26 PM EDT Reminder set for botox authorization to be submitted 05/31. Due for next visit 07/01/24. Previous 04/02/24. [facility]06-03-2024 Miscellaneous Notes* Telephone Encounter - Darrion Severino MA - 04/06/2024 2:26 PM EDT Reminder set for botox authorization to be submitted 05/31. Due for next visit 07/01/24. Previous 04/02/24. documented in this encounterTrumbull Regional Medical Center05-30-2024 Instructions* Patient Instructions* Fatuma Beckford [...] at for further instructions. documented in this encounterTrumbull Regional Medical Center05-30-2024 History of Present illness Narrative* [...] for migraine Informed Consent Consent Obtained: Written Powell Protocol A moment to CARE was completed [...] applicable Written Consent Obtained: Written LOT #: [id number] Expiration Date: Month: Year: 2025 Second vial: LOT #: [id number] Expiration Date: Month: Year: 2025 Injection Sites Left (Units) Left (Sites) Right (Units) Right (Sites) TOTAL (Units) Automobile Radio Repairer 5 1 5 1 10 Procerus Units: [...] needed. Fatuma Beckford PA-C documented in this encounterTrumbull Regional Medical Center04-26-2024 Telephone encounter Note * Telephone Encounter - Alyssa Andrews LPN - 02/28/2024 1:21 PM EDT Patient MyChart message requesting the following refill Refill(s) Requested: Requested Prescriptions Pending Prescriptions Disp Refills tiZANidine (ZANAFLEX) 4 mg tablet 60 tablet 0 Sig: Take 1 tablet by mouth every 8 hours as needed. ALLERGIES Allergen Reactions Lidocaine Hives Steroids [Betametha* Hives (home) [phone] (work) [phone] (cell) Last Office Visit Date: 12/09/2023 Last Distance Health Visit: 07/15/2023 Future Appointment: Visit date not found The patients preferred pharmacy has been captured for this encounter? yes Request is for script(s) to be escript to pharmacy. Alyssa Andrews LPN [facility]04-26-2024 Miscellaneous Notes* Telephone Encounter - Alyssa Andrews LPN - 02/28/2024 1:21 PM EDT Patient MyChart message requesting the following refill Refill(s) Requested: Requested Prescriptions Pending Prescriptions Disp Refills tiZANidine (ZANAFLEX) 4 mg tablet 60 tablet 0 Sig: Take 1 tablet by mouth every 8 hours as needed. ALLERGIES Allergen Reactions Lidocaine Hives Steroids [Betametha* Hives (home) [phone] (work) [phone] (cell) Last Office Visit Date: 12/09/2023 Last Distance Health Visit: 07/15/2023 Future Appointment: Visit date not found The patients preferred pharmacy has been captured for this encounter? yes Request is for script(s) to be escript to pharmacy. Alyssa Andrews LPN documented in this encounterTrumbull Regional Medical Center03-20-2024 Miscellaneous Notes* Telephone Encounter - Stephanie Parsons - 01/22/2024 4:00 PM EDT Patient has been identified by name and date of : Yes Patient phones for refill(s): Patient called for a refill of Tizanidine 4 mg. (Not in refill list). Please send to [facility] pharmacy. Date of last office visit in primary care: 12/09/2023 Date of next office visit in primary care: none Please advise. Thank you. Stephanie Parsons. documented in this encounterTrumbull Regional Medical Center03-13-2024 Miscellaneous Notes* Telephone Encounter - Roya Jaramillo LPN - 01/15/2024 12:07 PM EDT Fax received- Nurtec has been approved from 01/15/24 - 04/16/24. Roya Jaramillo LPN * Telephone Encounter - Angely Goldsmith LPN - 01/14/2024 5:30 PM EDT Faxed Prior authorization Anthony, signed by provider to [facility] [phone]. Angely Goldsmith LPN * Telephone Encounter - Angely Goldsmith LPN - 01/09/2024 5:17 PM EST Prior Authorization from Rx Benefits received for Nurtec 75 mg, EOC number [id number] dated 01/09/2024 requested a completed drug specific form to be completed, signed by provider faxed. Copy placed on MQ bin in the [place] location to review, sign. Angely Goldsmith LPN * Telephone Encounter - Roya Jaramillo LPN - 01/03/2024 3:39 PM EST Signed completed form faxed per request. Roya Jaramillo LPN * Telephone Encounter - Mariaa Ambrosio OCCA - 12/27/2023 9:01 AM EST Prior authorization needed for [facility]. Patient has RxBenefits, form completed and OV notes attached. Placed on providers desk for signature when she returns to office 12/31. Once signed, please fax asindicated on form. Thank you. GRISELDA Jasmine documented in this encounterTrumbull Regional Medical Center02-22-2024 Instructions* Patient Instructions* Fatuma Beckford [...] office for further instructions. documented in this encounterTrumbull Regional Medical Center02-22-2024 History of Present illness Narrative* [...] for migraine Informed Consent Consent Obtained: Written Powell Protocol A moment to CARE was completed [...] applicable Written Consent Obtained: Written LOT #: [id number] Expiration Date: Month: 6 Year: 2025 Second vial: LOT #: [id number] Expiration Date: Month: 6 Year: 2025 Injection Sites Left (Units) Left (Sites) Right (Units) Right (Sites) TOTAL (Units) Automobile Radio Repairer 5 1 5 1 10 Procerus Units: [...] appointment. Fatuma Beckford PA-C documented in this encounterTrumbull Regional Medical Center02-05-2024 Miscellaneous Notes* Telephone Encounter - Nirmala Storey LPN - 12/09/2023 6:36 PM EST Faxed to [facility]. * Telephone Encounter - Ivette Grimes MD - 12/09/2023 6:04 PM EST Order placed * Telephone Encounter - Nirmala Storey LPN - 12/09/2023 5:48 PM EST Please file mammo. For [facility] need to be mammo with jaquelin. After filed please fax to [facility] for patient. documented in this encounterTrumbull Regional Medical Center02-05-2024 History of Present illness Narrative* Ivette Grimes MD - 12/09/2023 5:29 PM EST Patient presents with: Diabetes HPI: Patient presents today for office visit for follow up. Hb was ok per [facility] lab Still has menses. DM:not [...] for 180 days. Take one poqhs Ipratropium Milton (ATROVENT) 21 mcg (0.03 %) nasal spray [...] 1 Each by INTRAUTERINE route as directed. [place]akima-3 Fatty Acids (FISH OIL) 500 mg cap Take 1 capsule by mouth once daily. blood sugar diagnostic (BLOOD GLUCOSE TEST) test strip Test blood sugar(s) 1 times daily. Dx: Type 2 DM - Controlled E11.9 Insulin: Yes Lancets lancets Test blood sugar(s) 1 times daily. Dx: Type 2 DM - Controlled E11.9 Insulin: No Rjoucijf-Vi-Xob-Fe-FA tab Take 1 tablet by mouth once [...] Age of Onset Alcohol/Drug Mother Heart Father AL Cancer Father PANCREATIC CANCER Diabetes Father Coronary [...] - stable. Ivette Grimes documented in this encounterTrumbull Regional Medical Center12-24-2023 Discharge summary Author Luan Zepeda [facility] October 27, 2023 3:44pm Note Date/Time October 27, 2023 3:16pm [facility] Medical Records Department [address] [place] [address] Emergency Department Summary 10/27/23 MR#: [id number] Acct: [id number] Name: TORI GRAY Rep #:[id number] : 1980 43 From: Luan Barry PCP: Dr. Ivette Grimes MD Status:PRE E R Location: ED HPI History of Present Illness Chief Complaint: Ear Problem [facility] Medical History Abnormal ECG Acute bronchitis [...] %) nasal spray 2 spray intranasal BID racshmims23/20/20 [History Last Taken 08/03/23] omega-3 fatty acids [...] Ox 98 Oxygen Delivery Method Room Air [facility] Narrative Medical decision making narrative: HISTORY OF [...] similar Factors affecting care: Type 2 diabetes [facility] Narrative: Patient was hemodynamically stable, afebrile, nontoxic-appearing. [...] problems, contact your Primary Care Provider. Call [employer] [facility] ([phone]) or report to the closest Emergency Room. Call 911 if necessary. 10/27/23 4021 <Electronically signed by Luan Zepeda DO> Cosigner Signature (if applicable): CC: Dr. Ivette Grimes MD ~ Signed [facility] Work Phone: [phone]) 127-301612-12-2023 Miscellaneous Notes* Telephone Encounter - aFtuma Beckford PA-C - 10/15/2023 8:13 AM EST Patient was given three month supply on 09/13/23 documented in this encounterTrumbull Regional Medical Center12-11-2023 Miscellaneous Notes* Telephone Encounter - Quinn Lazo - 10/14/2023 1:43 PM EST Patient phones requesting refills as follows: Requested Prescriptions Pending Prescriptions Disp Refills topiramate (TOPAMAX) 100 mg tablet 60 tablet 5 Sig: Take 1 tablet by mouth two times a day. APRIL 07/15/23 NOV 12/09/23 Please review and advise. Quinn Lazo documented in this encounterTrumbull Regional Medical Center12-11-2023 Miscellaneous Notes* Telephone Encounter - [...] (Not on refill list). Please send to [facility] pharmacy. TY documented in this encounterTrumbull Regional Medical Center11-21-2023 Miscellaneous Notes* Telephone Encounter - Ry Wang - 09/24/2023 8:20 AM EST Patient's request for medication is as follows: Requested Prescriptions Pending Prescriptions Disp Refills FLUoxetine (PROZAC) 20 mg capsule 90 capsule 0 Sig: Take 1 capsule by mouth once daily. Prescription(s) as above. Please process accordingly. Ry Wang documented in this encounterTrumbull Regional Medical Center11-06-2023 Miscellaneous Notes* Telephone Encounter - Quinn Lazo - 09/09/2023 1:21 PM EST Patient phones requesting refills as follows: Requested Prescriptions Pending Prescriptions Disp Refills ZOLMitriptan (ZOMIG) 5 mg tablet 9 tablet 11 Sig: Take 1 tablet (5 mg) by mouth once daily. prn APRIL 07/15/23 NOV 12/09/23 Please review and advise. Quinn Lazo documented in this [facility]10-23-2023 Miscellaneous Notes* Telephone Encounter - Nakia Caraballo RN - 08/26/2023 11:58 AM EDT Patient scheduled for 09/13/23 at 2 pm for botox. Latonia Caraballo RN, BSN documented in this [facility]10-20-2023 Miscellaneous Notes* Telephone Encounter - Nirmala Storey LPN - 08/23/2023 2:40 PM EDT Completed and faxed as requested. * Telephone Encounter - Dennise Robles - 08/20/2023 11:55 AM EDT Type of form: 2022 Healthy living program Form received via mail When form is completed, Fax form to [phone] Form has been forwarded to Physician Desk: Dr. Sydney Robles documented in this [facility]09-01-2023 Miscellaneous Notes* Telephone Encounter - Quinn Lazo [...] advise. Quinn Lazo LPN documented in this [facility]09-01-2023 Miscellaneous Notes* Telephone Encounter - Jenni Zaman - 07/05/2023 8:25 AM EDT Patient has been identified by name and date of : Yes, Provider [facility] Pharmacy phones for refill(s): Requested Prescriptions [...] Thank you. Jenni Zaman documented in this encounterTrumbull Regional Medical Center08-16-2023 History of Present illness Narrative* Rosetta Dias LPN - 06/19/2023 4:[address] Delgado, Lorilie was provided with powerstep original inserts, size [...] 02/22/2014 5.3 % 12/05/2012 5.9 % HBA1C, [place] (%) Date Value 01/23/2010 5.8 PCP: Ivette [...] mouth every 8 hours as needed. Ipratropium Milton (ATROVENT) 21 mcg (0.03 %) nasal spray [...] 1 Each by INTRAUTERINE route as directed. [place]ima-3 Fatty Acids (FISH OIL) 500 mg cap Take 1 capsule by mouth once daily. Lancets lancets Test blood sugar(s) 1 times daily. Dx: Type 2 DM - Controlled E11.9 Insulin: No Hqflfrzp-Yn-Mik-Fe-FA tab Take 1 tablet by mouth once [...] Age of Onset Alcohol/Drug Mother Heart Father AL Cancer Father PANCREATIC CANCER Diabetes Father Coronary [...] consider spur resection MARK Stein DPM Podiatry [address] [place] [id number] Dept: [phone] Dept * Keri Parker RN - 06/19/2023 [...] developed left foot pain documented in this encounterTrumbull Regional Medical Center08-16-2023 Instructions* Patient Instructions* Umesh Delgado [...] time on their feet, such as nurses, sales operations analyst/waiters, andmail carriers, often experience plantar fasciitis. Athletes [...] choose the one that fits the best. Bernie with your athletic shoes to find a [...] Powerstep Original Full length. Can purchase at [employer] here in [place], [employer] in [place] or [place]. Also can find in [facility] in [facility]. Powersteps can also be purchased online, [...] everything fits well together documented in this encounterTrumbull Regional Medical Center08-04-2023 History of Present illness Narrative* [...] migraine, would like to go back to [facility], noted that I do botox in this location and patient would like to transfer. EEG completed 04/02/23 at [facility] and per report, normal. Pt [...] 2 weeks ago - was working at [employer] and tubs of butter fell and hit her on the right side of the head. Pt states hurt the next day but then felt better. Did not seek medical attention. But then states went to [facility] ER where they did a [...] mouth every 8 hours as needed. Ipratropium Milton (ATROVENT) 21 mcg (0.03 %) nasal spray [...] 2 DM - Controlled E11.9 Insulin: No Kbfcarcq-Ay-Jsp-Fe-FA tab Take 1 tablet by mouth once daily. FLUoxetine (PROZAC) 20 mg capsule Take 1 capsule by mouth once daily. [place]-3 Fatty Acids (FISH OIL) 500 mg cap [...] Age of Onset Alcohol/Drug Mother Heart Father AL Cancer Father PANCREATIC CANCER Diabetes Father Coronary [...] time. Follow up after evaluation by neuro [facility]. Ivette Mejia MD I spent a total of 42 minutes on the date of the service which included preparing to see the patient, ryva-md-fepn patient care, completing clinical documentation, obtaining and/or [...] of your PCP/referring physician. documented in this encounterTrumbull Regional Medical Center08-03-2023 History of Present illness Narrative* Ivette Grimes MD - 06/06/2023 9:30 AM EDT Patient presents with: Follow Up HPI: Patient presents today for office visit for follow up. UC visit showed 2 spurs right foot and [...] mouth every 8 hours as needed. Ipratropium Milton (ATROVENT) 21 mcg (0.03 %) nasal spray [...] 1 Each by INTRAUTERINE route as directed. [place]-3 Fatty Acids (FISH OIL) 500 mg cap Take 1 capsule by mouth once daily. blood sugar diagnostic (BLOOD GLUCOSE TEST) test strip Test blood sugar(s) 1 times daily. Dx: Type 2 DM - Controlled E11.9 Insulin: Yes (Patient not taking: Reported on 05/28/2023) Lancets lancets Test blood sugar(s) 1 times daily. Dx: Type 2 DM - Controlled E11.9 Insulin: No Dqfgtpes-Rr-Tzk-Fe-FA tab Take 1 tablet by mouth once [...] Age of Onset Alcohol/Drug Mother Heart Father AL Cancer Father PANCREATIC CANCER Diabetes Father Coronary [...] RTO in six months documented in this encounterTrumbull Regional Medical Center07-26-2023 History of Present illness Narrative* Isiah Funes APRN.CNP - 05/29/2023 4:38 PM EDT Boot provided, see yesterdays addended noted. documented in this encounterTrumbull Regional Medical Center07-26-2023 Miscellaneous Notes* Telephone Encounter - [...] boot. Please call Pt. documented in this encounterTrumbull Regional Medical [facility]07-17-2023 Discharge summary Author Sam Pearl [facility] May 20, 2023 10:36pm Note Date/Time May 20, 2023 10:3 6pm [facility] Medical Records Department [address] [place] [id number] Emergency Department Summary 05/20/23 MR#: [id number] Acct: [id number] Name: TORI GRAY Rep #:[id number] : 1980 42 From: Sam Pearl MD PCP: Dr. 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 [facility] Medical History Abnormal ECG Acute bronchitis [...] #10 ea 04/26/20 [History Last Taken Unknown] vnwkowhq-htb-Rx-FA 1 mg capsule 1 cap PO DAILY [...] Normal speech. Can name and remember objects. Lavonia Coma Scale: document GCS findings Spontaneous Obeys [...] restrictions temporarily. NEXUS Head CT Instrument from [employer] on 05/20/2023 All calculations should be rechecked [...] Age >=5 years ?> 0 = No [place] CT Head Injury/Trauma Rule from [employer] on 05/20/2023 All calculations should be rechecked by clinician prior to use RESULT SUMMARY: CT Unnecessary The [place] Head CT Rule suggests a head CT [...] consciousness Instructions: ED Concussion Prescriptions: No Action fepoobzz-jij-In-FA 1 mg capsule 1 mg capsule 1 [...] your Primary Care Provider. Call [facility] ([phone]) or report to the closest Emergency Room. Call 911 if necessary. 05/20/23 1340 <Electronically signed by Sam Pearl MD> Mauricio Signature (if applicable): CC: Dr. Ivette Grimes MD ~ Signed [facility] Work Phone: [phone]) 872-246307-14-2023 Instructions* Patient Instructions* Fatuma Beckford PA-C - [...] office for further instructions. documented in this encounterTrumbull [facility] Center07-14-2023 History of Present illness Narrative* [...] days/month: 28 (672 headache-free hours) Migraine severity: 10 Patient reduction in overall migraine days: Yes [...] for migraine Informed Consent Consent Obtained: Written Powell Protocol A moment to CARE was completed [...] applicable Written Consent Obtained: Written LOT #: [id number] Expiration Date: Month: Year: 2024 Second vial: LOT #: [id number] Expiration Date: Month: Year: 2024 Injection Sites Left (Units) Left (Sites) Right (Units) Right (Sites) TOTAL (Units) Automobile Radio Repairer 5 1 5 1 10 Procerus Units: [...] therapy. Fatuma Beckford PA-C documented in this encounterTrumbull [facility] Medical Center07-05-2023 Miscellaneous Notes* Telephone Encounter - [...] you. Lubna Yoon LPN documented in this encounterTrumbull Regional Medical Center06-02-2023 Miscellaneous Notes* Telephone Encounter - [...] patient. Nirmala Storey LPN documented in this encounterTrumbull Regional Medical Center05-17-2023 Miscellaneous Notes* Telephone Encounter - Nakia Caraballo RN - 03/20/2023 12:38 PM EDT Botox renewal sent to pharmacy. Will schedule at [place] once approved. Patient due 04/22/23. [facility] unchecked. Latonia Caraballo RN documented in this encounterTrumbull Regional Medical Center05-08-2023 Miscellaneous Notes* Telephone Encounter - Nakia Caraballo RN - 03/11/2023 11:01 AM EDT Patient is not due for botox until 04/22/23. Asked her which location she prefers so we can scheduleonce approved. Latonia Caraballo RN documented in this encounterTrumbull Regional Medical Center05-02-2023 Instructions* Patient Instructions* Fatuma Beckford PA-C - 03/05/2023 1:02 PM EDT Continue regimen Reach out with any new symptoms or worsening weakness Reach out to Karen about moving botox Follow up with sleep provider in three months documented in this encounterTrumbull Regional Medical Center05-02-2023 History of Present illness Narrative* [...] 2. Gets botox for migraines with Karen Dowell POLYGRAPH EXAMINER. Patient sustained fall and head injury 11/24/22 [...] Each by INTRAUTERINE route as directed. Ipratropium Milton (ATROVENT) 0.03 % nasal spray Use 2 Sprays in the nose every 12 hours. Yakima-3 Fatty Acids (FISH OIL) 500 mg cap Take 1 capsule by mouth once daily. blood sugar diagnostic (BLOOD GLUCOSE TEST) test strip Test blood sugar(s) 1 times daily. Dx: Type 2 DM - Controlled E11.9 Insulin: Yes Lancets lancets Test blood sugar(s) 1 times daily. Dx: Type 2 DM - Controlled E11.9 Insulin: No Hfewumqx-Hs-Jmd-Fe-FA tab Take 1 tablet by mouth once daily. HISTORIES PAST MEDICAL HISTORY Diagnosis Date Acute cholecystitis Cholecystitis Anxiety 06/07/2014 Chronic back pain Kidney stones LETITIA treated with BiPAP Type 2 diabetes mellitus (HCC) FAMILY HISTORY Problem Relation Age of Onset Alcohol/Drug Mother Heart Father AL Cancer Father PANCREATIC CANCER Diabetes Father Coronary [...] dysarthria; comprehension, naming, repetition intact. Short and long term care phlebotomist memory intact. CN: PERRL, EOMI and without [...] migraine, would like to go back to [place], noted that I do botox in this [...] which included preparing to see the patient, lbri-dj-pfzc patient care, completing clinical documentation, obtaining and/or reviewing separately obtained history, performing a medically appropriate examination, counseling and educating the pat ient/family/caregiver, and ordering medications, tests, or procedures. This document has been created with the use of voice recognition technology. It may contain inaccuracies: (e.g. misspellings, inaccurate syntax or word sense) that have escaped review. documented in this encounterTrumbull Regional Medical Center05-02-2023 History of Present illness Narrative* [...] L1 SAB0 IAB0 Ectopic0 Multiple0 Live Births1 Mill Representative History LMP: 01/02/2023 (Approximate), IUD Age at Menarche: Age at First : Age at Menopause: Mill Representative History Comments: Sexual Activity: Not Currently; No [...] Age of Onset Alcohol/Drug Mother Heart Father AL Cancer Father PANCREATIC CANCER Diabetes Father Coronary [...] external genitalia normal, normal Bartholin's glands, urethra, Sacaton's glands, no vulvar lesions, no cervical lesions, [...] needed Galina Camacho MD documented in this encounterTrumbull Regional Medical Center05-01-2023 Miscellaneous Notes* Telephone Encounter - Nirmala Storey [...] to Mounjaro. Please advise pt. Pharmacy is [facility]. Cary Goldsmith LPN documented in this encounterTrumbull Regional Medical Center04-28-2023 History of Present illness Narrative* [...] appointment. Ivette Mejia MD documented in this encounterTrumbull Regional Medical Center04-28-2023 Miscellaneous Notes* Telephone Encounter - Anni Sauceda Pss - 03/01/2023 9:54 AM EDT PCP requesting the patient have a follow-up with [facility]. Spoke with the patient and she wasn't able to take the time available. The patient is scheduled for a follow-up appointment with the PA. The patient is aware of the appointment. documented in this encounterTrumbull Regional Medical Center04-27-2023 History of Present illness Narrative* [...] Each by INTRAUTERINE route as directed. Ipratropium Milton (ATROVENT) 0.03 % nasal spray Use 2 Sprays in the nose every 12 hours. metroNIDAZOLE (METROGEL) 0.75 % Topical Gel Apply to affected area twice daily. Yakima-3 Fatty Acids (FISH OIL) 500 mg cap Take 1 capsule by mouth once daily. blood sugar diagnostic (BLOOD GLUCOSE TEST) test strip Test blood sugar(s) 1 times daily. Dx: Type 2 DM - Controlled E11.9 Insulin: Yes Lancets lancets Test blood sugar(s) 1 times daily. Dx: Type 2 DM - Controlled E11.9 Insulin: No Yaghqktq-Sn-Psq-Fe-FA tab Take 1 tablet by mouth once [...] Age of Onset Alcohol/Drug Mother Heart Father AL Cancer Father PANCREATIC CANCER Diabetes Father Coronary [...] BLD Ivette Grimes MD documented in this encounterTrumbull Regional Medical Center04-27-2023 History of Present illness Narrative* Juliana Perez RT(R) - 02/28/2023 8:00 AM EDT Radiology [...] 28, 2023 8:53 AM documented in this encounterTrumbull Regional Medical Center04-26-2023 Miscellaneous Notes* Telephone Encounter - [...] the provider could send her something to [facility] pharmacy just to take for tomorrow. Please call and advise. documented in this encounterTrumbull Regional Medical Center04-24-2023 Miscellaneous Notes* Telephone Encounter - [...] 02/28/23 Adriana Swanson MA documented in this encounterTrumbull Regional Medical Center04-14-2023 History of Present illness Narrative* Grace Coronel APRN.POLYGRAPH EXAMINER - 02/15/2023 3:32 PM EDT Images from [...] visit. Either the patient or their legal professional healthcare representative has been informed of the risks [...] has been seeing a counselor at the [facility]. Has been working with him [...] which included preparing to see the patient, vpll-fi-psyg patient care, completing clinical documentation, and counseling and educating the patient/family/caregiver, ordering medications/labs, and communicating with other healthcare providers. Grace Coronel APRN.CNP February 15, 2023 3:32 PM This note was partially generated using [employer] voice recognition system. Note was reviewed for accuracy. There may be minor misspellings or grammar miscues with UserTestingon voice recognition. documented in this encounterTrumbull Regional Medical Center04-12-2023 Miscellaneous Notes* Telephone Encounter - Nirmala Storey LPN - 02/13/2023 5:54 PM EDT [employer] message sent to patient. * Telephone Encounter [...] of US head/neck soft tissue received from [facility] via fax. Results scanned into Calm. (May takea few minutes before viewable in Epic.) Quinn Lazo LPN documented in this encounterTrumbull Regional Medical Center04-10-2023 Miscellaneous Notes* Telephone Encounter - Quinn Lazo LPN - 02/11/2023 1:15 PM EDT Patient phones requesting refills as follows: Requested Prescriptions Pending Prescriptions Disp Refills tiZANidine (ZANAFLEX) 4 mg tablet 20 tablet 0 Sig: Take 1 tablet by mouth every 8 hours as needed. APRIL 01/31/23 NOV 02/28/23 Please review and advise. Quinn Lazo LPN documented in this encounterTrumbull Regional Medical Center03-30-2023 Miscellaneous Notes* Telephone Encounter - Juliana Murphy Ma - 01/31/2023 10:31 AM EDT Faxed order to [facility] per patient's request * Telephone Encounter - Ivette Grimes MD - 01/31/2023 9:44 AM EDT While here patient has noted an intermittent lump in left neck. Slightly sore to touch. Comes andgoes. Is a nonspecific swelling on left posterior neck. Not sure is related to her fall. Will run throughregular us. Set up us at [facility]. Will run through regular insurance. documented in this encounterTrumbull Regional Medical Center03-30-2023 History of Present illness Narrative* [...] Each by INTRAUTERINE route as directed. Ipratropium Milton (ATROVENT) 0.03 % nasal spray Use 2 Sprays in the nose every 12 hours. metroNIDAZOLE (METROGEL) 0.75 % Topical Gel Apply to affected area twice daily. Yakima-3 Fatty Acids (FISH OIL) 500 mg cap Take 1 capsule by mouth once daily. blood sugar diagnostic (BLOOD GLUCOSE TEST) test strip Test blood sugar(s) 1 times daily. Dx: Type 2 DM - Controlled E11.9 Insulin: Yes Lancets lancets Test blood sugar(s) 1 times daily. Dx: Type 2 DM - Controlled E11.9 Insulin: No Oxwgagdt-Rz-Gyc-Fe-FA tab Take 1 tablet by mouth once [...] Age of Onset Alcohol/Drug Mother Heart Father AL Cancer Father PANCREATIC CANCER Diabetes Father Coronary [...] above. Ivette Grimes MD documented in this encounterTrumbull Regional Medical Center03-23-2023 NoteHNO ID: [id number] Author: Gloria Oh MA Service: ? Author Type: Computer Applications Instructor Type: Progress Notes Filed: 01/24/2023 11:07 AM [...] and suicidal ideas. The patient is not nervous/anxious.[facility]03-23-2023 History of Present illness Narrative* Gloria [...] not included. [facility] [place] [facility] Name: Tori Gray : 1980 Purpose: Follow-up, discuss SPRINT Today's Date: 01/24/2023 Last Visit: 11/08/2022 (OV ENAMEL MACHINE OPERATOR) Chief complaint: LEFT shoulder pain [...] rotation Special Tests: Non-painful (negative) Alexandra Raymundo's Neuro-Lower: Neural Tension Signs: Negative slump in [...] was advised that they will need a local truck driver for after the procedure and that if no local truck driver is available and on site at the time of the procedure, the procedure will be cancelled. For any anticoagulants, the patient was advised on whether to continue or hold for this procedure. The patient expressed understanding and gave verbal consent to proceed. Medications: Refill: Continue Gabapentin as directed (PCP manages) Functional Advent: Continue PT and TENs unit for pain [...] MBA Pain Management [facility] documented in this encounterTrumbull Regional Medical Center03-21-2023 Instructions* Patient Instructions* Jenni Ledesma APRN.POLYGRAPH EXAMINER - 01/22/2023 11:47 AM EDT Botox Home [...] the next 5 days. documented in this encounterTrumbull Regional Medical Center03-21-2023 History of Present illness Narrative* [...] for migraine Informed Consent Consent Obtained: Written Powell Protocol A moment to CARE was completed [...] applicable Written Consent Obtained: Written LOT #: [id number] Expiration Date: Month: 3 Year: 2024 Second vial: LOT #: [id number] Expiration Date: Month: 3 Year: 2024 Injection Sites Left (Units) Left (Sites) Right (Units) Right (Sites) TOTAL (Units) Automobile Radio Repairer 5 1 5 1 10 Procerus Units: [...] recommendations. Karen Bansal APRN.GABRIELA documented in this encounterTrumbull Regional Medical Center03-16-2023 History of Past illness Narrative* [...] of this encounter (statuses as of 12/10/2023) [facility]03-[facility] History of Past illness Narrative* [...] of this encounter (statuses as of 12/10/2023) [facility]03-16-[facility] History of Past illness Narrative* [...] of this encounter (statuses as of 12/26/2023) [facility]03-16-[facility] History of Past illness Narrative* [...] of this encounter (statuses as of 01/02/2024) [facility]03-16-[facility] History of Past illness Narrative* [...] of this encounter (statuses as of 01/15/2024) [facility]03-16-[facility] History of Past illness Narrative* [...] of this encounter (statuses as of 01/23/2024) [facility]03-16-[facility] History of Present illness Narrative* [...] to return to her second job at [employer] for one night and 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 She feels like the back of her neck feels off. No cough or congestion. No sore throat or fever. Had a cold last week. Now better. MRI still not approved. She spoke with [employer] who states a C9 needs completed specifically [...] Each by INTRAUTERINE route as directed. Ipratropium Milton (ATROVENT) 0.03 % nasal spray Use 2 Sprays in the nose every 12 hours. Yakima-3 Fatty Acids (FISH OIL) 500 mg cap Take 1 capsule by mouth once daily. blood sugar diagnostic (BLOOD GLUCOSE TEST) test strip Test blood sugar(s) 1 times daily. Dx: Type 2 DM - Controlled E11.9 Insulin: Yes Lancets lancets Test blood sugar(s) 1 times daily. Dx: Type 2 DM - Controlled E11.9 Insulin: No Sfuzohpv-Qr-Vas-Fe-FA tab Take 1 tablet by mouth once [...] Age of Onset Alcohol/Drug Mother Heart Father AL Cancer Father PANCREATIC CANCER Diabetes Father Coronary [...] S19.9XXD Ivette Grimes MD documented in this encounterTrumbull Regional Medical Center03-14-2023 NoteHNO ID: [id number] Author: Elle Sanchez MD Service: ? Author Type: Physician Type: Progress Notes Filed: 01/24/2023 11:07 AM Note Text: [facility] [place] [facility] Name: Tori Gray : 1980 Purpose: Follow-up, discuss SPRINT Today's Date: 01/24/2023 Last Visit: 11/08/2022 (OV ENAMEL MACHINE OPERATOR) Chief complaint: LEFT shoulder pain [...] of Motion: Normal Scapulothoracic (more content not included)...[facility]03-10-2023 Miscellaneous Notes* Telephone Encounter - Nirmala Storey LPN - 01/11/2023 4:42 PM EST Request is closed. An override is in effect until 01/09/24. * Telephone Encounter - Mirna Santos Ma - 01/08/2023 4:55 PM EST PA was submitted through rx benefits Mirna Santos Ma documented in this encounterTrumbull Regional Medical Center03-09-2023 Miscellaneous Notes* Telephone Encounter - [...] patient. Nirmala Storey LPN documented in this encounterTrumbull Regional Medical Center03-03-2023 History of Present illness Narrative* [...] Each by INTRAUTERINE route as directed. Ipratropium Milton (ATROVENT) 0.03 % nasal spray Use 2 Sprays in the nose every 12 hours. metroNIDAZOLE (METROGEL) 0.75 % Topical Gel Apply to affected area twice daily. Yakima-3 Fatty Acids (FISH OIL) 500 mg cap Take 1 capsule by mouth once daily. blood sugar diagnostic (BLOOD GLUCOSE TEST) test strip Test blood sugar(s) 1 times daily. Dx: Type 2 DM - Controlled E11.9 Insulin: Yes Lancets lancets Test blood sugar(s) 1 times daily. Dx: Type 2 DM - Controlled E11.9 Insulin: No Vgneftbx-Wz-Rpy-Fe-FA tab Take 1 tablet by mouth once [...] Age of Onset Alcohol/Drug Mother Heart Father AL Cancer Father PANCREATIC CANCER Diabetes Father Coronary [...] R51.9 Ivette Grimes MD documented in this encounterTrumbull Regional Medical Center02-28-2023 Miscellaneous Notes* Telephone Encounter - Juliana Murphy Ma - 01/01/2023 3:02 PM EST Patient never checked in for her appointments as workers comp. Sent visits to [facility] to have C9 created and faxed to [...] resubmit. Hailey Leone LPN documented in this encounterTrumbull Regional Medical Center02-23-2023 Miscellaneous Notes* Telephone Encounter - Anni Sauceda Pss - 12/27/2022 2:22 PM EST Received the [facility] C9 form. The patient was seen on 12/07/2022. The appointment was attached to the patient's insurance not a WC claim. Spoke with the patient and was given the information. PCP Dr. Grimes is the physican of records per the patient. Claim# [id number] Date of injury: 11/24/2022 Nolberto Walden RN [phone] Case management: Cristina # [phone] Left Cristina a message to fax information and to call the office. Requested WC report and DX allowed * Telephone Encounter - Jovana Blackwell MA - 12/26/2022 2:12 PM EST Spoke to [employer]. Will send OV note to complete authorization of MRI order/payment of visit to [phone]. [employer] is sending c9 form for provider to complete. Gave form to Anni Sauceda per Dr. Mejia's instructions. Jovana Blackwell MA * Telephone Encounter - Jovana Blackwell MA - 12/25/2022 10:18 AM EST TC to [employer]. Unable to reach. Left detailed message on VM to return call to office & ask for atriage nurse. Please transfer to neurology back line at ext. [phone]. Jovana Blackwell MA * Telephone Encounter - Marilynn Frank LPN - 12/24/2022 3:28 PM EST Patient calling said her MRI's need to be prior authorized with [employer]. Person name is lawrence number is [phone] works 8 am to 430 pm and fax number is [phone]. Patient claim number is [id number]. documented in this encounterTrumbull Regional Medical Center02-22-2023 Miscellaneous Notes* Telephone Encounter - Quinn Lazo LPN - 12/26/2022 11:41 AM EST Patient phones requesting refills as follows: Requested Prescriptions Pending Prescriptions Disp Refills tiZANidine (ZANAFLEX) 4 mg tablet 20 tablet 0 Sig: Take 1 tablet by mouth every 8 hours as needed. APRIL 12/26/22 NOV 01/04/23 Please review and advise. Quinn Lazo LPN documented in this encounterTrumbull Regional Medical Center02-22-2023 History of Present illness Narrative* [...] Each by INTRAUTERINE route as directed. Ipratropium Milton (ATROVENT) 0.03 % nasal spray Use 2 [...] 2 DM - Controlled E11.9 Insulin: No Moirywzy-Vv-Tsh-Fe-FA tab Take 1 tablet by mouth once daily. Yakima-3 Fatty Acids (FISH OIL) 500 mg cap [...] Age of Onset Alcohol/Drug Mother Heart Father AL Cancer Father PANCREATIC CANCER Diabetes Father Coronary [...] until 01/07. 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 Recheck in one week. 2. Essential (primary) hypertension - ICD9: 401.9, ICD10: I10 - good control - Continue current medication(s) - Goal of BP <130/80 Ivette Grimes MD documented in this encounterTrumbull Regional Medical Center02-20-2023 Miscellaneous Notes* Telephone Encounter - Nakia Caraballo RN - 12/24/2022 5:22 PM EST Last OV: 07/19/22 Last Refill: 08/03/22 FU OV: 01/22/23 Appropriate for refill routed to for review Latonia Caraballo RN documented in this encounterTrumbull Regional Medical Center02-10-2023 History of Present illness Narrative* [...] waiting to schedule those. Conflicts over at [facility] with workers comp. Injury that [...] Each by INTRAUTERINE route as directed. Ipratropium Milton (ATROVENT) 0.03 % nasal spray Use 2 Sprays in the nose every 12 hours. metroNIDAZOLE (METROGEL) 0.75 % Topical Gel Apply to affected area twice daily. [place]akima-3 Fatty Acids (FISH OIL) 500 mg cap [...] 2 DM - Controlled E11.9 Insulin: No Qmjpsbmu-Ls-Dqc-Fe-FA tab Take 1 tablet by mouth once [...] Age of Onset Alcohol/Drug Mother Heart Father AL Cancer Father PANCREATIC CANCER Diabetes Father Coronary [...] RTO in two weeks. documented in this encounterTrumbull Regional Medical Center02-07-2023 Miscellaneous Notes* Telephone Encounter - Ingrid Salmon Ma - 12/11/2022 9:55 AM EST Last office visit: 12/07/22 F/u scheduled: 12/14/22 Ingrid Salmon Ma documented in this encounterTrumbull Regional Medical Center02-03-2023 History of Present illness Narrative* [...] view their previous records. documented in this encounterTrumbull Regional Medical Center02-03-2023 History of Present illness Narrative* [...] BP. Check CMP and CBC due to correction med use. 3. LETITIA (obstructive sleep apnea) [...] when sleepy. Advised pt to avoid ozone nurse advisor. Patient now referred for NEW complaint of head trauma. ER notes and PCP notes reviewed. Per PCP note of 11/27/22: Patient presents today for office visit for ER F/U from [facility] 11/24/22. Head injury after fall. [...] Appears pt had CT brain x2 at [facility] that were both unremarkable. Pt also previously referred to headache center to perform botox -- scheduled to get injections by January 2023. Note records show that pt has seen cards (EP) for QT prolongation concerns. Pt states on 11/24/22 was working at [facility] was doing a discharge, when [...] Each by INTRAUTERINE route as directed. Ipratropium Milton (ATROVENT) 0.03 % nasal spray Use 2 Sprays in the nose every 12 hours. blood sugar diagnostic (BLOOD GLUCOSE TEST) test strip Test blood sugar(s) 1 times daily. Dx: Type 2 DM - Controlled E11.9 Insulin: Yes Lancets lancets Test blood sugar(s) 1 times daily. Dx: Type 2 DM - Controlled E11.9 Insulin: No Wvekzpgf-Bf-Tcw-Fe-FA tab Take 1 tablet by mouth once daily. metroNIDAZOLE (METROGEL) 0.75 % Topical Gel Apply to affected area twice daily. (Patient not taking: Reported on 12/07/2022) Yakima-3 Fatty Acids (FISH OIL) 500 mg cap Take 1 capsule by mouth once daily. (Patient taking differently: Take 1 tablet by mouth once daily. 1200 mg) HISTORIES PAST MEDICAL HISTORY Diagnosis Date Acute cholecystitis Cholecystitis Anxiety 06/07/2014 Chronic back pain Kidney stones LETITIA treated with BiPAP Type 2 diabetes mellitus (HCC) FAMILY HISTORY Problem Relation Age of Onset Alcohol/Drug Mother Heart Father AL Cancer Father PANCREATIC CANCER Diabetes Father Coronary [...] which included preparing to see the patient, yvby-cj-uobv patient care, completing clinical documentation, obtaining and/or reviewing separately obtained history, performing a medically appropriate examination, counseling and educating the pat ient/family/caregiver, ordering medications, tests, or procedures, and communicating results to thepatient/family/caregiver. documented in this encounterTrumbull [facility] Medical Center01-31-2023 Miscellaneous Notes* Telephone Encounter - Marilynn Velazquezyusuf SÁNCHEZ - 12/04/2022 9:52 AM EST [facility] asking for copy of 11/27/2022 office visit notes and copy of letter off work to be faxed to [phone] with claim number [id number]. Printed and faxed as requested. documented in this encounterTrumbull Regional Medical Center01-30-2023 Miscellaneous Notes* Telephone Encounter - [...] agreeable. Mechelle Velasquez RN documented in this encounterTrumbull Regional Medical Center01-27-2023 History of Present illness Narrative* [...] Each by INTRAUTERINE route as directed. Ipratropium Milton (ATROVENT) 0.03 % nasal spray Use 2 Sprays in the nose every 12 hours. metroNIDAZOLE (METROGEL) 0.75 % Topical Gel Apply to affected area twice daily. Yakima-3 Fatty Acids (FISH OIL) 500 mg cap [...] 2 DM - Controlled E11.9 Insulin: No Uqlmzefj-Aj-Wxd-Fe-FA tab Take 1 tablet by mouth once [...] Age of Onset Alcohol/Drug Mother Heart Father AL Cancer Father PANCREATIC CANCER Diabetes Father Coronary [...] ICD10: S06.0X9A Ivette Grimes documented in this encounterTrumbull Regional Medical Center01-26-2023 Miscellaneous Notes* Telephone Encounter - [...] her appointment for 12/05/22 with you in [place] as she is not sure if this will effect her. Please advise. Darrion Shah documented in this encounterTrumbull Regional Medical Center01-24-[address] Callejas [facility] November 27, 2022 6:34pm Note Date/Time November 27, 2022 3 :56pm [facility] Medical Records Department [address] [place] [address] Emergency Department Summary 11/27/22 MR#: [id number] Acct: [id number] Name: ISAACTORI KELLY Rep #:[id number] : 1980 42 From: Tod Callejas MD [...] other symptoms consistent with a viral illness. [facility] Medical History Acute bronchitis Acute cholecystitis [...] #10 ea 04/26/20 [History Last Taken Unknown] lznahbkf-jgz-Nd-FA 1 mg capsule 1 cap PO DAILY [...] concussion Instructions: ED Concussion Prescriptions: No Action krchzext-oep-Yd-FA 1 mg capsule 1 mg capsule 1 [...] your Primary Care Provider. Call [facility] ([phone]) or report to the closest Emergency Room. Call 911 if necessary. 11/27/224 <Electronically signed by Tod Callejas MD> Cosigner Signature (if applicable): CC: Dr. Ivette Grimes MD ~ Signed [facility] Work Phone: 1(438) 379-729201-24-2023 History of Present illness Narrative* Ivette Grimes MD - 11/27/2022 1:48 PM EST Patient presents with: ER F/U HPI: Patient presents today for office visit for ER F/U from [facility] 11/24/22. Head injury after fall. [...] Each by INTRAUTERINE route as directed. Ipratropium Milton (ATROVENT) 0.03 % nasal spray Use 2 Sprays in the nose every 12 hours. metroNIDAZOLE (METROGEL) 0.75 % Topical Gel Apply to affected area twice daily. [place]akima-3 Fatty Acids (FISH OIL) 500 mg cap [...] 2 DM - Controlled E11.9 Insulin: No Iprvhznh-Pu-Hit-Fe-FA tab Take 1 tablet by mouth once [...] Age of Onset Alcohol/Drug Mother Heart Father AL Cancer Father PANCREATIC CANCER Diabetes Father Coronary [...] S06.0X9A Ivette Grimes MD documented in this encounterTrumbull Regional Medical Center01-20-2023 Miscellaneous Notes* Telephone Encounter - [...] advise. Quinn Lazo LPN documented in this encounterTrumbull Regional Medical Center01-12-2023 Miscellaneous Notes* Telephone Encounter - Jumana Harrell LPN - 11/15/2022 8:34 AM EST Patient phones requesting refills as follows: Requested Prescriptions Pending Prescriptions Disp Refills tiZANidine (ZANAFLEX) 4 mg tablet 20 tablet 0 Sig: Take 1 tablet by mouth every 8 hours as needed. APRIL-09/04/22 Labs-09/06/22 NOV-12/06/22 med filled 10/05/22 Please review and advise. Jumana Harrell LPN documented in this encounterTrumbull Regional Medical Center01-05-2023 NoteHNO ID: [id number] Author: Adelina Mason APRN.POLYGRAPH EXAMINER Service: ? Author Type: Nurse Practitioner Type: Progress Notes Filed: 11/08/2022 1:55 PM Note Text: [facility] [place] [facility] Today's Date: 11/08/2022 Last Visit: 07/19/22 [...] activity was identified. 11/08/2022 by Adelina Mason APRN.POLYGRAPH EXAMINER Allergies: ALLERGIES Allergen Reactions Lidocaine Hives Steroids [...] pain (primary encounter deepali (more content not included)...[facility] 11-08-2022 NoteHNO ID: [id number] Author: Gloria Oh MA Service: ? Author Type: Computer Applications Instructor Type: Progress Notes Filed: 11/08/2022 1:55 PM [...] and suicidal ideas. The patient is not nervous/anxious.[facility]01-05-2023 Miscellaneous Notes* Telephone Encounter - Vito [...] No 9. Does this procedure require a local truck driver? Yes If yes, has patient been notified that a local truck driver is needed and must be present [...] COVID vaccine.) Vito Mancera documented in this encounterTrumbull Regional Medical Center01-05-2023 Instructions* Patient Instructions* Adelina Mason APRN.CNP - 11/08/2022 1:54 PM EST Activity as tolerated Use Ice and/or heat as tolerated as needed documented in this encounterTrumbull Regional Medical Center01-05-2023 History of Present illness Narrative* Adelina Mason, THOM.POLYGRAPH EXAMINER - 11/08/2022 1:30 PM EST Images from the original note were not included. [facility] [place] [facility] Today's Date: 11/08/2022 Last Visit: 07/19/22 [...] suspiciousactivity was identified. 11/08/2022 by Adelina Mason APRN.POLYGRAPH EXAMINER Allergies: ALLERGIES Allergen Reactions Lidocaine Hives Steroids [...] Continue Gabapentin as directed (PCP manages) [facility]: Continue PT and TENs unit for pain [...] APRN.[facility] * Gloria Oh MA - 11/08/2022 1:29 [...] patient is not nervous/anxious. documented in this encounterTrumbull Regional Medical Center12-09-2022 Instructions* Patient Instructions* Grace Coronel APRN.CNP - 10/12/2022 9:28 AM EST Power Monge, It was good to meet and talk with you today. Below is a summary of the plan that we discussed during your appointment for reference. Of course, if you have any questions or concerns do not hesitate to reach out to me via a message or call. Bill, Grace Coronel APRN.CNP PLAN AND FOLLOW UP: [...] - Call the National Suicide Hotline at 7-549-UVYLZKE ( ) or 7-199-008-TALK (4792) - Text 2OOPE to 388292 Medication Update: - Prozac 10 mg - take 1 capsule once daily for 7 days; then take 2 capsules once daily after that. Next appointment: --Schedule in 4 to 6 weeks or sooner if needed -- You may call the department appointment line at [phone] to schedule your appointment. -- Please call my nurse Coretta at [phone] or send me a message in Flavor[place]il with any questions or concerns between appointments. documented in this encounterTrumbull Regional Medical Center12-09-2022 History of Present illness Narrative* rGace Coronel APRN.CNP - 10/12/2022 8:37 AM EST [...] her. They get along well. 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 REFERRAL SOURCE: PCP - [...] report that daughter has support from her academic interventionist and therapist and has been doing better. [...] current PAP mask.) 1 Device 99 Ipratropium Milton (ATROVENT) 0.03 % nasal spray Use 2 Sprays in the nose every 12 hours. 1 Bottle2 metroNIDAZOLE (METROGEL) 0.75 % Topical Gel Apply to affected area twice daily. 45 g 2 Yakima-3 Fatty Acids (FISH OIL) 500 mg cap Take 1 capsule by mouth once daily. 30 capsule 11 blood sugar diagnostic (BLOOD GLUCOSE TEST) test strip Test blood sugar(s) 1 times daily. Dx: Type 2 DM - Controlled E11.9 Insulin: Yes 50 Strip 11 Lancets lancets Test blood sugar(s) 1 times daily. Dx: Type 2 DM - Controlled E11.9 Insulin: No 100Each 11 Yvmlrvtm-Iy-Mea-Fe-FA tab Take 1 tablet by mouth once daily. 0 No current facility-administered medications for this visit. VITAL SIGNS: There were no vitals filed for this visit. ROS: All other systems negative. PSYCHIATRIC HISTORY: Prior Diagnosis: Generalized Anxiety Disorder, and Depression Prior Provider: No prior psychiatrist Therapist: Previously followed at the counseling center. Stopped during the pandemic. Current Apartment Groundskeeper: No Last Hospitalization: Denies hospitalization. ECT: No Previous Discontinued Psychiatric Med Trials: Ativan as needed PRN. Paxil, Buspar (low dose), Wellbutrin SUBSTANCE USE HISTORY: Nicotine: None Caffeine: Mert, 1/day Alcohol: No history of use or dependence Marijuana: No history of use or dependence Cocaine: No history of use or dependence Opiods: No history of use or dependence SPIRITUALITY: Religious [facility]: Tori Gray is the oldest of 2 siblings. Her brother lives in [place]. The patient was born in [place] and raised in [place], [place]. She completed Associates degree in psychology. [...] which included preparing to see the patient, lbbt-wq-ghnd patient care, completing clinical documentation, obtaining and/or reviewing separately obtained history, counseling and educating the patient/family/caregiver, ordering medications, ananth ts, or procedures, communicating with other HCPs (not separately reported), and independently interpreting results (not separately reported). ADD ON PSYCHOTHERAPY CODE : No SIGNATURE: Grace Coronel APRN.CNP PATIENT NAME: Tori Gray DATE: October 12, 2022 TIME: 8:40 AM PAGER : documented in this encounterTrumbull Regional Medical Center12-06-2022 Miscellaneous Notes* Telephone Encounter - LEVAR Jasmine - 10/09/2022 8:44 AM EST Patient has been identified by name and date of : Yes Patient phones for refill(s): Requested Prescriptions Pending Prescriptions Disp Refills topiramate (TOPAMAX) 100 mg tablet 60 tablet 2 Sig: Take 1 tablet by mouth twice daily. Date of last office visit in primary care: [facility] 07/19/2022 with Karen Bansal APRN.POLYGRAPH EXAMINER No appointment scheduled [facility] Notes: Plan: All options for treatment discussed. [...] Thank you. LEVAR Jasmine documented in this encounterTrumbull Regional Medical Center12-02-2022 Miscellaneous Notes* Telephone Encounter - Quinn Lazo LPN - 10/05/2022 8:41 AM EST Patient phones requesting refills as follows: Requested Prescriptions Pending Prescriptions Disp Refills tiZANidine (ZANAFLEX) 4 mg tablet 20 tablet 0 Sig: Take 1 tablet by mouth every 8 hours as needed. [facility] 09/04/22 NOV 11/01/22 Please review and advise. Quinn Lazo LPN documented in this encounterTrumbull Regional Medical Center11-29-2022 Miscellaneous Notes* Telephone Encounter - Adriana Licona - 10/02/2022 11:32 AM EST Patient was called back and spoke with and scheduled with Adelina in [place] beginning of the year. Adriana Licona * Telephone Encounter - Adriana Licona - 10/02/2022 11:22 AM EST Patient called in leaving a voicemail stating she had an appointment with Adelina back in Jul. Insurance denied the RFA and was needing to finds out what else she can do? Adriana Licona documented in this encounterTrumbull Regional Medical Center11-16-2022 Miscellaneous Notes* Telephone Encounter - [...] you. Lubna Yoon LPN documented in this encounterTrumbull Regional Medical Center11-09-2022 History of Present illness Narrative* WELLINGTON Fine - 09/12/2022 1:57 PM EST BEHAVIORAL HEALTH SOCIAL WORK QUICK NOTE Provider Action/MYRA Needs appointment scheduled with Grace Coronel CNP. Will forward chart to Grace and her TUBE MAKING MACHINE OPERATOR to assist with scheduling. Patient identified for [facility] from: PCP Reason for referral: Resources Behavioral Health Resources: Psychiatry med management;Psychology - talk therapy [facility] encounter type: Chart Review Attempts to Outreach: 1 attempt Referral made: Psychiatry - Internal;Psychology - External;Psychology - Internal Psychiatry-Internal referral type: Medication Management Psychology-Internal referral type: Therapy Psychology-External referral type: Therapy Reason for external referral: Wait times at [facility] too long Final Disposition: Resources given Patient Discharged?: Yes Patient reported that caregiver was able to meet their needs today?: N/A Pt identified by name and . Patient [facility], specifically Grace Coronel, POLYGRAPH EXAMINER at therequest of pt's PCP. SW will route chart to Grace and her nurse, Coretta Spain who can assist with patient scheduling. Patient states she's on a wait list for counseling at agencies near her home. No needs further from this SW at this time. WELLINGTON Fine, ACM-SW documented in this encounterTrumbull Regional Medical Center11-09-2022 Miscellaneous Notes* Addendum Note - Ivette Grimes MD - 09/12/2022 1:19 PM ESTAddended by: IVETTE GRIMES on: 09/12/2022 01:19 PM Modules accepted: Orders * Telephone Encounter - Ivette Grimes MD - 09/12/2022 1:18 PM EST Needs set up with Grace documented in this encounterTrumbull Regional Medical Center11-03-2022 Miscellaneous Notes* Telephone Encounter - Nakia Caraballo RN - 09/06/2022 12:44 PM EDT Patient is scheduled for botox on 09/13/22 at 1:30 pm with Kaylen. Latonia Caraballo RN documented in this encounterTrumbull Regional Medical Center11-01-2022 Miscellaneous Notes* Telephone Encounter - Jovana Blackwell MA - 09/04/2022 3:01 PM EDT Clarified with patient [facility] will be receiving 2 new providers able to administer injections. Patient will continue with plan to stay within [facility] for injections & just follow up in [place] when neuro providers are available to schedule. Jovaan Blackwell MA documented in this encounterTrumbull Regional Medical Center11-01-2022 History of Past illness Narrative* [...] of this encounter (statuses as of 09/04/2022) [facility] of Past illness Narrative* [...] of this encounter (statuses as of 09/04/2022) [facility] of Past illness Narrative* [...] of this encounter (statuses as of 09/06/2022) [facility] of Past illness Narrative* [...] of this encounter (statuses as of 09/07/2022) [facility] of Past illness Narrative* [...] of this encounter (statuses as of 09/12/2022) [facility] of Past illness Narrative* [...] of this encounter (statuses as of 09/12/2022) [facility] of Past illness Narrative* [...] of this encounter (statuses as of 09/12/2022) [facility] of Past illness Narrative* [...] of this encounter (statuses as of 09/19/2022) [facility] of Past illness Narrative* [...] of this encounter (statuses as of 10/02/2022) [facility] of Past illness Narrative* [...] of this encounter (statuses as of 10/05/2022) [facility] of Past illness Narrative* [...] of this encounter (statuses as of 10/09/2022) [facility] of Past illness Narrative* [...] of this encounter (statuses as of 10/18/2022) [facility] of Past illness Narrative* [...] of this encounter (statuses as of 10/21/2022) [facility] of Past illness Narrative* [...] of this encounter (statuses as of 11/09/2022) [facility] of Past illness Narrative* [...] 04/17/2022 09/04/2022 Nausea, vomiting, and diarrhea 11/22/2021 11/04/2021 Numbness of upper extremity 10/10/202111/2021 Obesity, [...] of this encounter (statuses as of 11/15/2022) [facility] illness Narrative* [...] of this encounter (statuses as of 11/21/2022) [facility] Past illness Narrative* [...] of this encounter (statuses as of 11/23/2022) [facility] illness Narrative* [...] of this encounter (statuses as of 11/27/2022) [facility] illness Narrative* [...] of this encounter (statuses as of 11/29/2022) [facility] illness Narrative* [...] of this encounter (statuses as of 11/30/2022) [facility] Narrative* [...] of this encounter (statuses as of 12/04/2022) [facility] Narrative* [...] of this encounter (statuses as of 12/08/2022) [facility] Narrative* [...] of this encounter (statuses as of 12/08/2022) [facility] Narrative* [...] of this encounter (statuses as of 12/11/2022) [facility] Narrative* [...] of this encounter (statuses as of 12/11/2022) [facility] Narrative* [...] of this encounter (statuses as of 12/14/2022) [facility] Narrative* [...] of this encounter (statuses as of 12/21/2022) [facility] Narrative* [...] of this encounter (statuses as of 12/25/2022) [facility] Narrative* [...] of this encounter (statuses as of 12/26/2022) [facility] Narrative* [...] of this encounter (statuses as of 12/26/2022) [facility] Narrative* [...] of this encounter (statuses as of 01/04/2023) [facility] Narrative* [...] of this encounter (statuses as of 01/07/2023) [facility] Narrative* [...] of this encounter (statuses as of 01/10/2023) [facility] Narrative* [...] of this encounter (statuses as of 01/11/2023) [facility] Narrative* [...] of this encounter (statuses as of 01/15/2023) [facility] Narrative* [...] of this encounter (statuses as of 01/17/2023) [facility] Narrative* [...] of this encounter (statuses as of 01/22/2023) [facility] Narrative* [...] of this encounter (statuses as of 01/24/2023) [facility] Narrative* [...] of this encounter (statuses as of 01/31/2023) [facility] Narrative* [...] of this encounter (statuses as of 01/31/2023) [facility] Narrative* [...] of this encounter (statuses as of 02/11/2023) [facility] Narrative* [...] facility 01/23/2010 12/06/2012 Overview: 01/23/2010, from Dr. Whiet Routine gynecological examination 01/23/2010 02/22/2014 SACROILIITIS 05/06/2009 [...] of this encounter (statuses as of 02/14/2023) [facility] Narrative* [...] of this encounter (statuses as of 02/16/2023) [facility] Narrative* [...] of this encounter (statuses as of 02/25/2023) [facility] Narrative* [...] of this encounter (statuses as of 02/27/2023) [facility] Narrative* [...] of this encounter (statuses as of 02/28/2023) [facility] Narrative* [...] of this encounter (statuses as of 03/01/2023) [facility] Narrative* [...] of this encounter (statuses as of 03/01/2023) [facility] Narrative* [...] of this encounter (statuses as of 03/04/2023) [facility] Narrative* [...] of this encounter (statuses as of 03/05/2023) [facility] Narrative* [...] of this encounter (statuses as of 03/05/2023) [facility] Narrative* [...] of this encounter (statuses as of 03/05/2023) [facility] Narrative* [...] of this encounter (statuses as of 03/13/2023) [facility]arrative* [...] of this encounter (statuses as of 03/20/2023) [facility] Narrative* [...] of this encounter (statuses as of 03/20/2023) [facility] Narrative* [...] of this encounter (statuses as of 04/05/2023) [facility]arrative* [...] of this encounter (statuses as of 05/08/2023) [facility] Narrative* [...] of this encounter (statuses as of 05/17/2023) [facility] Narrative* [...] of this encounter (statuses as of 05/29/2023) [facility] Narrative* [...] of this encounter (statuses as of 05/30/2023) [facility] Narrative* [...] of this encounter (statuses as of 06/06/2023) [facility] Narrative* [...] of this encounter (statuses as of 06/08/2023) [facility] Narrative* [...] of this encounter (statuses as of 06/10/2023) [facility] Narrative* [...] 09/30/2018 09/04/2022 Strain of lumbar region 07/02/2017 11/2021 Routine general medical exam ination at [...] of this encounter (statuses as of 06/22/2023) [facility] Narr[facility]* [...] of this encounter (statuses as of 07/05/2023) [facility] Narrative* [...] of this encounter (statuses as of 07/09/2023) [facility] Narrative* [...] of this encounter (statuses as of 08/23/2023) [facility]arr[facility]* [...] of this encounter (statuses as of 08/26/2023) [facility]arr[facility]* [...] of this encounter (statuses as of 09/08/2023) [facility]* [...] of this encounter (statuses as of 09/10/2023) [facility]arr[facility]* [...] of this encounter (statuses as of 09/25/2023) [facility]arr[facility]* [...] of this encounter (statuses as of 10/14/2023) [facility]arr[facility]* [...] of this encounter (statuses as of 10/15/2023) [facility]* [...] of this encounter (statuses as of 10/16/2023) [facility]* [...] of this encounter (statuses as of 12/06/2023) [facility]11-01-2022 Instructions* Patient Instructions* Ivette Grimes MD - 09/04/2022 12:13 PM EDT Counseling and Psychiatry Services [facility] [address] [place] [address] *counseling [facility] PSYCHOLOGICAL AND COUNSELING SERVICES [facility] [address], [address], [facility] [address] *counseling [place] [address] [place] [address] *counseling [facility] [address] [place], [place] [phone] *counseling and psychiatry [place] [address] [place], [place] [address] *counseling [address] [phone] *counseling [place] [address] [place] [address] *counseling [place] [address] [place] [address] *counseling [facility] [address] [place], [place] [phone] [facility] [address], [address] [place] [address] *counseling [facility] [address] [place], [place] [phone] [facility] [address] [place], [place] [phone] *counseling Rosio Chatman [facility] [address] [place], [place] [phone] [employer] [facility] [address] [facility] [place], [place] [phone] *counseling [employer] [address] [facility] [address] [place], [place] [phone] *counseling [facility] Office [address] [place] [address] *counseling and psychiatry [facility] [place], [facility] [address] [place], [place] [phone] *psychiatry [facility] [phone] *grief counseling, individual and groups *If you ever experience a mental health crisis please call [phone], 911, Please verify with insurance provider for coverage Provide services on a sliding fee scale for [facility] residents. [address] [address] *Counseling Counsel[facility] Office [address] [place], [place] [phone] *Counseling, Psychiatry and Case Management [address] [phone] *Counseling [address] [place] [address] *Counseling [place] [address] [facility] [place] [address] *Counseling [place] [address] [place] [address] *Counseling [place] [address] [place] [address] *Counseling/mental health and substance use treatment [facility] [address] [address] [place] [address] [place], [place] [address] [facility] [address] [place] [address] *Addiction services, services for victims of domestic violence and sexual assault, housing services [facility] -safe, alcohol and drug free environment [facility] [phone] *free grief services, individual and group *If you ever experience a mental health crisis please contact [phone], 911 or go to the nearest ER. Please verify with insurance provider for coverage documented in this encounterTrumbull Regional Medical Center11-01-2022 History of Present illness Narrative* [...] for depression. Was seen by cardiology in [place] who referred her to EPS. Appt is [...] in bed with current PAP mask. Ipratropium Milton (ATROVENT) 0.03 % nasal spray Use 2 Sprays in the nose every 12 hours. metroNIDAZOLE (METROGEL) 0.75 % Topical Gel Apply to affected area twice daily. Yakima-3 Fatty Acids (FISH OIL) 500 mg cap Take 1 capsule by mouth once daily. blood sugar diagnostic (BLOOD GLUCOSE TEST) test strip Test blood sugar(s) 1 times daily. Dx: Type 2 DM - Controlled E11.9 Insulin: Yes Lancets lancets Test blood sugar(s) 1 times daily. Dx: Type 2 DM - Controlled E11.9 Insulin: No Gjhuhtes-Qa-Jyo-Fe-FA tab Take 1 tablet by mouth once [...] Age of Onset Alcohol/Drug Mother Heart Father AL Cancer Father PANCREATIC CANCER Diabetes Father Diabetes [...] treatment. Ivette Grimes MD documented in this encounterTrumbull Regional Medical Center10-31-2022 History of Present illness Narrative* [...] in bed with current PAP mask. Ipratropium Milton (ATROVENT) 0.03 % nasal spray Use 2 Sprays in the nose every 12 hours. metroNIDAZOLE (METROGEL) 0.75 % Topical Gel Apply to affected area twice daily. Yakima-3 Fatty Acids (FISH OIL) 500 mg cap Take 1 capsule by mouth once daily. blood sugar diagnostic (BLOOD GLUCOSE TEST) test strip Test blood sugar(s) 1 times daily. Dx: Type 2 DM - Controlled E11.9 Insulin: Yes Lancets lancets Test blood sugar(s) 1 times daily. Dx: Type 2 DM - Controlled E11.9 Insulin: No Vajioxks-Qg-Jvx-Fe-FA tab Take 1 tablet by mouth once [...] Age of Onset Alcohol/Drug Mother Heart Father AL Cancer Father PANCREATIC CANCER Diabetes Father Diabetes [...] in am in person documented in this encounterTrumbull Regional Medical Center10-18-2022 Miscellaneous Notes* Telephone Encounter - Nakia Caraballo RN - 08/21/2022 1:02 PM EDT Botox approved 08/15/22-01/30/23. Patient made aware that we will get her scheduled. Latonia Caraballo RN documented in this encounterTrumbull Regional Medical Center10-05-2022 Miscellaneous Notes* Telephone Encounter - Adelina Mason APRN.GABRIELA - 08/08/2022 12:53 PM EDT Please advise patient insurance will not approve the RFA of her shoulder. Another option would be to repeat the LEFT scapular NB, but with steroids for a therapeutic effect. If she would like to proceed with this option please let me know and will place the order. Thank you, Adelina Mason APRN.POLYGRAPH EXAMINER documented in this encounterTrumbull Regional Medical Center10-05-2022 Miscellaneous Notes* Telephone Encounter - Brittney Cueto - 08/08/2022 10:08 AM EDT Spoke with the patient she has not heard back from [facility] will try them again if not able to reach them she will call [facility] back to schedule. documented in this encounterTrumbull Regional Medical Center09-30-2022 Miscellaneous Notes* Telephone Encounter - Karen Bansal APRN.CNP - 08/03/2022 10:33 AM EDT Rizatriptan sent to pharmacy. Stop sumatriptan. * Telephone Encounter - Nakia Caraballo RN - 08/03/2022 9:03 AM EDT Patient reporting that sumatriptan is not helping migraines. Asking for another treatment. Botox referral was sent but still pending. Latonia Caraballo RN documented in this encounterTrumbull Regional Medical Center09-29-2022 History of Present illness Narrative* [...] her cpap. Needs new machine. 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 . Will be seeing cardiology. Had [...] in bed with current PAP mask. Ipratropium Milton (ATROVENT) 0.03 % nasal spray Use 2 Sprays in the nose every 12 hours. metroNIDAZOLE (METROGEL) 0.75 % Topical Gel Apply to affected area twice daily. Yakima-3 Fatty Acids (FISH OIL) 500 mg cap Take 1 capsule by mouth once daily. blood sugar diagnostic (BLOOD GLUCOSE TEST) test strip Test blood sugar(s) 1 times daily. Dx: Type 2 DM - Controlled E11.9 Insulin: Yes Lancets lancets Test blood sugar(s) 1 times daily. Dx: Type 2 DM - Controlled E11.9 Insulin: No Etbxsyxs-Kh-Nrq-Fe-FA tab Take 1 tablet by mouth once [...] Age of Onset Alcohol/Drug Mother Heart Father AL Cancer Father PANCREATIC CANCER Diabetes Father Diabetes [...] RTO in six months documented in this encounterTrumbull Regional Medical Center09-28-2022 Miscellaneous Notes* Telephone Encounter - Nakia Caraballo RN - 08/01/2022 1:21 PM EDT Botox referral sent to pharmacy. Latonia Caraballo RN documented in this encounterTrumbull Regional Medical Center09-19-2022 Miscellaneous Notes* Telephone Encounter - [...] 07/2022 Last refill: 07/2021 documented in this encounterTrumbull Regional Medical Center09-15-2022 Instructions* Patient Instructions* Gabi Cornelius [...] Feverfew: Feverfew is a common garden herb pilot station to [place] and popular in [place] as a treatment for disorders typically controlled [...] pepperoni, Pickled leblanc Pods of broad jaquez (Sammarinese beans, Central African pea pods, Maltese (antwan) beans, saldana and navy beans Ripe [...] Strenuous Exercise High Altitude Location New Move Day Physical Illness Oversleep/Not enough sleep Weather [...] too muchlight. These can be obtained at [employer] or [employer] Foods: see list above. 2. Limit use of acute treatments (jqnb-jrx-qgresyh medications, triptans, etc.) to no more than [...] and quiet environment. Relax and reduce stress. Gqttyvb1Ngvhw is a free félix that can instruct you on some simple relaxtionand breathing techniques. Http://Ch[employer] is a free website that provides teaching [...] ensuing treatment plans will be released via Flavorvanil and discussedduring your follow-up appointment. [facility]: Please ask the schedulers to give you an activation code. The main way of communication isby ascentifyt rather than phone lines, so if you have not signed up, please do so. Flavorvanil is also theway that you can review your labs and testing. We are not able to contact everyone to tell them results are normal. If you do not hear back from us regarding testing you have had, it should be considered normal or within normal range. If you have any questions about the results, you are free to message us. Flavor[employer]il is meant for simple questions regarding medications, possible side effects, or other simplestraight forward questions in limited sentences, rather than multiple paragraphs of discussion. Flavorvanil is not meant for, or efficient for [...] do not comment on most testing on [employer] in a message or commentary unless there is a concern. You will not receive a message from me of the result unless there is a specific concern of the result I need you to address further in care with us or your primary medical team. Make sure to check your my chart email or félix. documented in this encounterTrumbull Regional Medical Center09-15-2022 History of Present illness Narrative* Karen Bansal APRN.CNP - 07/19/2022 1:00 PM EDT Images from the original note were not included. [facility] General Neurology New Patient Headache [...] Description Onset: Early 30's. 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 Denies upon wakening. Total headache days per [...] Outside imaging reviewed Lab work obtained from [facility] and reviewed Blood studies 02/07/2022 [...] Age of Onset Alcohol/Drug Mother Heart Father AL Cancer Father PANCREATIC CANCER Diabetes Father Diabetes [...] in bed with current PAP mask. Ipratropium Milton (ATROVENT) 0.03 % nasal spray Use 2 Sprays in the nose every 12 hours. metroNIDAZOLE (METROGEL) 0.75 % Topical Gel Apply to affected area twice daily. Yakima-3 Fatty Acids (FISH OIL) 500 mg cap Take 1 capsule by mouth once daily. blood sugar diagnostic (BLOOD GLUCOSE TEST) test strip Test blood sugar(s) 1 times daily. Dx: Type 2 DM - Controlled E11.9 Insulin: Yes Lancets lancets Test blood sugar(s) 1 times daily. Dx: Type 2 DM - Controlled E11.9 Insulin: No Lunljidl-Nt-Ldu-Fe-FA tab Take 1 tablet by mouth once [...] Finger Abduction (U) 5 Finger Abduction 5 Offline Editor 5 Offline Editor 5 Right Lower Extremity: (of 5) Left [...] device: independent Romberg's sign is negative. IMPRESSION/PLAN: (G43.358) Intractable chronic migraine without aura and without [...] Headache free days a month: 3 Gabi Poulton, INSURANCE VERIFICATION 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.GABRIELA [facility] General Neurology My impression and [...] which included preparing to see the patient, dusl-qc-tnyc patient care, completing clinical documentation, obtaining and/or [...] recommendations. Karen Bansal APRN.GABRIELA documented in this encounterTrumbull Regional Medical Center09-15-2022 NoteHNO ID: [id number] Author: Adelina Mason APRN.GABRIELA Service: ? Author Type: Nurse Practitioner Type: Progress Notes Filed: 07/19/2022 10:17 AM Note Text: [facility] [place] [facility] Today's Date: 07/19/2022 Last Visit: 05/24/22 Name: Tori Gray : 1980 Purpose: Established Patient Encounter Interval History: Since last encounter, Jemmadinh Ivan Gray; reports that the chronic problem(s) of [...] (A) 74 - 99 mg/dL Final Comment: Location:[facility], [address], [place], [place], [facility] The Accu-Chek Inform II glucose meter has [...] activity was identified. 07/19/2022 by Adelina Mason APRN.POLYGRAPH EXAMINER Last Drug screen: Not Applicable Risk Assessment: [...] No visible regional lymphad (more content not included)...[facility]09-15-2022 NoteHNO ID: [id number] Author: Tiana Cifuentes MA Service: ? Author Type: Computer Applications Instructor Type: Progress Notes Filed: 07/19/2022 10:17 AM [...] and suicidal ideas. The patient is not nervous/anxious.[facility]09-15-2022 Miscellaneous Notes* Telephone Encounter - Pankaj [...] year? Yes If yes, [place] and [place] (Medical Records Release needs to [...] COVID vaccine.) Pankaj Murillo documented in this encounterTrumbull Regional Medical Center09-06-2022 Miscellaneous Notes* Telephone Encounter - Ingrid Salmon Ma - 07/10/2022 1:55 PM EDT Last office visit: 05/01/22 F/u scheduled: 08/02/22 Ingrid Salmon Ma documented in this encounterTrumbull Regional Medical Center08-30-2022 Miscellaneous Notes* Telephone Encounter - [...] and PM. Note, lab work obtained from [facility] and reviewed. Given persistence of [...] Thank you. LEVAR Jasmine documented in this encounterTrumbull Regional Medical Center08-19-2022 Miscellaneous Notes* Telephone Encounter - [...] refill: 06/06/2022 20 tablets documented in this encounterTrumbull Regional Medical Center08-04-2022 Miscellaneous Notes* Telephone Encounter - LEVAR Jasmine - 06/07/2022 4:24 PM EDT Orders and APRIL Notes faxed to [employer] to service pts PAP due to compliance reports and data no longerbeing able to be pulled from device. LEVAR Jasmine documented in this encounterTrumbull Regional Medical Center08-04-2022 History of Present illness Narrative* Tara Gillette APRN.POLYGRAPH EXAMINER - 06/07/2022 3:30 PM EDT Images from the original note were not included. [facility] [place] Follow-up Visit Follow-up note June 07, 2022 HPI: Ms. Gary presents today for a follow-up visit. Per [...] BP. Check CMP and CBC due to correction med use. 3. LETITIA (obstructive sleep apnea) [...] when sleepy. Advised pt to avoid ozone nurse advisor. Usually getting about 7 hours of sleep. [...] in bed with current PAP mask. Ipratropium Milton (ATROVENT) 0.03 % nasal spray Use 2 Sprays in the nose every 12 hours. metroNIDAZOLE (METROGEL) 0.75 % Topical Gel Apply to affected area twice daily. Yakima-3 Fatty Acids (FISH OIL) 500 mg cap Take 1 capsule by mouth once daily. blood sugar diagnostic (BLOOD GLUCOSE TEST) test strip Test blood sugar(s) 1 times daily. Dx: Type 2 DM - Controlled E11.9 Insulin: Yes Lancets lancets Test blood sugar(s) 1 times daily. Dx: Type 2 DM - Controlled E11.9 Insulin: No Griiwfzg-Ar-Yid-Fe-FA ( FORMULA) ORAL Tab Take 1 tablet [...] and pattern. Labs/studies: Outside labs reviewed from [facility] collected on 06/05/22: CBC N [...] and PM. Note, lab work obtained from [facility] and reviewed. Given persistence of [...] 06/07/22 [facility]SULT TO [facility] Tara Gillette APRN.GABRIELA I spent a total of 30 minutes on the date of the service which included preparing to see the patient, cylo-wp-cbnc patient care, completing clinical documentation, obtaining and/or reviewing separately obtained history, performing a medically appropriate examination, counseling and educating the pat ient/family/caregiver and ordering medications, tests, or procedures. documented in this encounterTrumbull Regional Medical Center08-02-2022 Miscellaneous Notes* Addendum Note - Ivette Grimes MD - 06/05/2022 1:46 PM EDT Addended by: IVETTE GRIMES on: 06/05/2022 01:46 PM Modules accepted: Orders * Telephone Encounter - Ivette Grimes MD - 06/05/2022 1:44 PM EDT Can send lab to [facility] to be done in two weeks documented in this encounterTrumbull Regional Medical Center07-26-2022 Miscellaneous Notes* Telephone Encounter - [...] says she had CMP andCBC done at [facility] on 02/09. These are in pt chart. Pt asking if she needs to have labs redrawn or if the ones done in February are sufficient. Please advise. Thank you. LEVAR Jasmine documented in this encounterTrumbull Regional Medical Center07-21-2022 NoteHNO ID: [id number] Author: Adelina Mason APRN.GABRIELA Service: ? 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 Author Type: Computer Applications Instructor Type: Progress Notes Filed: 05/24/2022 10:08 PM [...] and suicidal ideas. The patient is not nervous/anxious.[facility]07-21-2022 Instructions* Patient Instructions* Adelina Mason APRN.CNP - 05/24/2022 11:52 AM EDT Activity as tolerated Use Ice and/or heat as tolerated as needed documented in this encounterTrumbull Regional Medical Center07-21-2022 History of Present illness Narrative* Adelina Mason APRN.CNP - 05/24/2022 11:28 AM EDT Images from the original note were not included. 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 05/24/2022 by Adelina Maosn APRN.POLYGRAPH EXAMINER Last Drug screen: Not Applicable Risk Assessment: [...] rotation Special Tests: Non-painful (negative) ZacEm, Alexandra's, O'Briens, Speed's Diagnoses: (M25.512, G89.29) Chronic left shoulder pain [...] refill. UDS, NAOIC/ORT: up to date [facility] (Land-based) Additional Studies: None Referrals: [...] APRN.GABRIELA Pain Management [facility] [place] [facility] * Gloria Oh MA - 05/24/2022 11:00 [...] patient is not nervous/anxious. documented in this encounterTrumbull Regional Medical Center07-08-2022 Miscellaneous Notes* Telephone Encounter - Livia Luna - 05/11/2022 3:17 PM EDT Left brief message asking patient to call back with any questions or concerns about a recent appointment. Livia Luna LPN May 11, 2022 3:18 PM documented in this encounterTrumbull Regional Medical Center07-07-2022 NoteHNO ID: [id number] Author: Mirna Lanza LPN Service: ? Author [...] and suicidal ideas. The patient is not nervous/anxious.[facility]07-07-2022 Nurse Note* Mirna Lanza LPN - [...] tablePatient s procedure was performed in an [facility] Procedure room. Pause completed at each level [...] Lanza LPN - 05/10/2022 10:03 AM EDT Lining Feller Blindstitch's Name: Marilynn Are you on a blood [...] to receive one? n documented in this encounterTrumbull Regional Medical Center07-07-2022 Instructions* Patient Instructions* Mirna Lanza [...] emergency care and why. documented in this encounterTrumbull Regional Medical Center07-07-2022 NoteHNO ID: [id number] Author: Elle Sanchez MD Service: ? Author Type: Physician Type: Progress Notes Filed: 05/10/2022 11:04 AM Note Text: [facility] [place] [facility] Patient name: Tori Gray Date of : 1980 Today's date: 05/10/2022 Purpose: Ultrasound-guided injection Diagnosis: (M75.02) Adhesive capsulitis of left shoulder (primary encounter diagnosis) (M19.012) Primary osteoarthritis of left shoulder Procedure: Left Shoulder/Chest Suprascapular Nerve Block Center Lead Consultant: Elle Sanchez M.D. MStephanyB.Karla Comments: Allergy Due to the patient's reported history of allergy to Lidocaine, the following medication was substituted: Bupivacaine. Notes from Health And Safety Technician 01/2020 reviewed, she had skin testing to multiple local anesthetics and steroids, without any reaction, but advised that she avoid Lidocaine where possible due to unknown negative predictive value of the tests. Other anesthetics had been used with other procedures that did not have a reaction (eg Bupivacaine). Powell protocol documentation / Pre-Procedure Checklist: ? ID [...] [facility] [place] [facility] 05-10-2022 History of Present illness Narrative* [...] 8:23 AM EDT [facility] [place] [facility] Patient name: Tori Gray Date of : 1980 Today's date: 05/10/2022 Purpose: Ultrasound-guided injection Diagnosis: (M75.02) Adhesive capsulitis of left shoulder (primary encounter diagnosis) (M19.012) Primary osteoarthritis of left shoulder Procedure: Left Shoulder/Chest Suprascapular Nerve Block Center Lead Consultant: Elle Sanchez M.D., M.B.A Comments: Allergy Due to the patient's reported history of allergy to Lidocaine, the following medication was substituted: Bupivacaine. Notes from Health And Safety Technician 01/2020 reviewed, she had skin testing to multiple local anesthetics and steroids, without any reaction, but advised that she avoid Lidocaine where possible due to unknown negative predictive value of the tests. Other anesthetics had been usedwith other procedures that did not have a reaction (eg Bupivacaine). Powell protocol documentation / Pre-Procedure Checklist: ID verified [...] follow-up with the requesting physician. Elle Sanchez MD [facility] [place] [facility] documented in this encounterTrumbull Regional Medical Center07-05-2022 Miscellaneous Notes* Telephone Encounter - Lubna Yoon LPN - 05/08/2022 1:04 PM EDT Sent a [employer] message * Telephone Encounter - Ivette Grimes MD - 05/08/2022 12:56 PM EDT I would recommend she follow up and see one of us here. documented in this encounterTrumbull Regional Medical Center06-30-2022 Miscellaneous Notes* Telephone Encounter - [...] advise. Jumana Harrell LPN documented in this encounterTrumbull Regional Medical Center06-28-2022 Instructions* Patient Instructions* Ivette Grimes [...] tabs twice a day. documented in this encounterTrumbull Regional Medical Center06-28-2022 History of Present illness Narrative* [...] in bed with current PAP mask. Ipratropium Milton (ATROVENT) 0.03 % nasal spray Use 2 [...] 2 DM - Controlled E11.9 Insulin: No Punqmhob-Hv-Bxg-Fe-FA ( FORMULA) ORAL Tab Take 1 tablet by mouth once daily. Yakima-3 Fatty Acids (FISH OIL) 500 mg cap [...] Age of Onset Alcohol/Drug Mother Heart Father AL Cancer Father PANCREATIC CANCER Diabetes Father Diabetes [...] three months and prn. documented in this encounterTrumbull Regional Medical Center06-16-2022 Miscellaneous Notes* Addendum Note - Ivette Grimes MD - 04/19/2022 2:41 PM EDT Addended by: IVETTE GRIMES on: 04/19/2022 02:41 PM Modules accepted: Orders documented in this encounterTrumbull Regional Medical Center06-13-2022 Miscellaneous Notes* Telephone Encounter - Ivette Mejia Jr., MD - 04/16/2022 6:04 PM EDT Please contact DME ([facility]) to determine if pt qualifies for new PAP device. If so, can order a new [employer] PAP. Thank you, Ivette Mejia MD documented in this encounterTrumbull Regional Medical Center06-13-2022 Miscellaneous Notes* Telephone Encounter - Quinn Lazo LPN - 04/16/2022 10:28 AM EDT Patient phones requesting refills as follows: Pending Prescriptions Disp Refills TIZANIDINE 4 MG TABLET 20 tablet 0 Sig: Take 1 tablet by mouth every 8 hours as needed. CRISTINA: No APRIL 02/28/22 NOV 05/01/22 Please review and advise. Quinn Lazo LPN documented in this encounterTr[facility]ull [facility]22 Instructions* Patient Instructions* Ivette Mejia [...] Excedrin and Tylenol use. documented in this encounterTrumbull Regional Medical Center06-06-2022 History of Present illness Narrative* [...] this resolves mask issues. Rx sent to [facility]. During visit, discussed with patient: the physiology [...] to 50mg BID. PAP data download shows 52/90 days use with no use throughout March [...] in bed with current PAP mask. Ipratropium Milton (ATROVENT) 0.03 % nasal spray Use 2 Sprays in the nose every 12 hours. blood sugar diagnostic (BLOOD GLUCOSE TEST) test strip Test blood sugar(s) 1 times daily. Dx: Type 2 DM - Controlled E11.9 Insulin: Yes Lancets lancets Test blood sugar(s) 1 times daily. Dx: Type 2 DM - Controlled E11.9 Insulin: No Zxjlhfzg-Ci-Vrf-Fe-FA ( FORMULA) ORAL Tab Take 1 tablet by mouth once daily. metroNIDAZOLE (METROGEL) 0.75 % Topical Gel Apply to affected area twice daily. [place]akima-3 Fatty Acids (FISH OIL) 500 mg cap Take 1 capsule by mouth once daily. HISTORIES PAST MEDICAL HISTORY Diagnosis Date Acute cholecystitis Cholecystitis Anxiety 06/07/2014 Type 2 diabetes mellitus (HCC) FAMILY HISTORY Problem Relation Age of Onset Alcohol/Drug Mother Heart Father AL Cancer Father PANCREATIC CANCER Diabetes Father Diabetes [...] BP. Check CMP and CBC due to long term care phlebotomist med use. 3. LETITIA (obstructive sleep apnea) [...] when sleepy. Advised pt to avoid ozone nurse advisor. Ivette Mejia MD I spent a total of 40+ minutes on the date of the service which included preparing to see the patient, [id number]-wrtj patient care, completing clinical documentation, obtaining and/or reviewing separately obtained history, performing a medically appropriate examination, counseling and educating the pa tient/family/caregiver, ordering medications, tests, or procedures, independently interpreting results (not separately reported) and communicating results to the patient/family/caregiver. documented in this encounterTrumbull [facility] Medical Center06-02-2022 Miscellaneous Notes* Telephone Encounter - Helen Camacho LPN - 04/05/2022 9:51 AM EDT Last office visit 02/23/2022 documented in this encounterTrumbull [facility] Center05-27-2022 Miscellaneous Notes* Telephone Encounter - Milena Rico LPN - 03/30/2022 11:08 AM EDT april-- 02/28/22 Next 05/01/22 Last refill-- 03/16/22 20 with 0 refills Last labs 02/07/22 documented in this encounterTrumbull [facility] Medical Center05-26-2022 Miscellaneous Notes* Telephone Encounter - [...] COVID vaccine.) Terese Cruz documented in this encounterTrumbull Regional Medical Center05-26-2022 NoteHNO ID: [id number] Author: Henna Boles MA Service: ? Author Type: Computer Applications Instructor Type: Progress Notes Filed: 03/29/2022 11:48 AM [...] and suicidal ideas. The patient is not nervous/anxious.[facility]05-26-[facility] History of Present illness Narrative* Henna [...] not included. [facility] Name: Tori Gray : 1980 Purpose: New [...] 12/21/2021, noted she had an EMG at [facility] which was normal (Jul 2021). MRI shoulder had very minor degenerative changes. Non-surgical management was advised. 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 [...] (Meloxicam) and Lodine (Etodolac) Opioids: Vicodin or Whitesboro (Hydrocodone) and Percocet (Oxycodone) Muscle Relaxants: Zanaflex [...] Referrals: No additional considerations at present Functional Advent: No changes-continue current regimen Depending on response [...] [facility] documented in this encounterTrumbull Regional Medical Center05-26-2022 NoteHNO ID: [id number] Author: Elle Sanchez MD Service: ? Author Type: Physician Type: Progress Notes Filed: 03/29/2022 11:48 AM Note Text: [facility] Name: Tori Gray : 1980 Purpose: New [...] 12/21/2021, noted she had an EMG at [facility] which was normal (Jul 2021). MRI shoulder had very minor degenerative changes. Non-surgical management was advised. 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 [...] (Meloxicam) and Lodine (Etodolac) Opioids: Vicodin or [place] (Hydrocodone) and Percocet (Oxycodone) Muscle Relaxants: Zanaflex [...] On today's date, noted (more content not included)...[facility]05-13-2022 Miscellaneous Notes* Telephone Encounter - Helen Camacho LPN - 03/16/2022 11:14 AM EDT Patient phones requesting refills as follows: Pending Prescriptions Disp Refills TIZANIDINE 4 MG TABLET 20 tablet 0 Sig: Take 1 tablet by mouth every 8 hours as needed. CRISTINA: No Please review and advise. Helen Camacho LPN documented in this encounterTrumbull Regional Medical Center05-02-2022 Miscellaneous Notes* Telephone Encounter - [...] Thank you. LEVAR Jasmine documented in this encounterTrumbull Regional Medical Center04-27-2022 History of Present illness Narrative* Ivette Grimes MD - 02/28/2022 4:43 PM EDT Patient presents with: ED Follow-up HPI: Patient presents today for office visit for follow up. Nursing Notes: Nirmala Storey LPN 02/28/2022 4:42 PM Signed HOSPITAL/ER FOLLOW UP: Reason for visit: back pain/headache(different pain not her chronic pain) Pain went from lower backup to shoulders. Which facility: [facility] Date of visit: 02/27/22 Diagnosis: [...] week as well. Happened all day yesterday. Vale different than her classic disc pain. Might [...] in bed with current PAP mask. Ipratropium Milton (ATROVENT) 0.03 % nasal spray Use 2 Sprays in the nose every 12 hours. metroNIDAZOLE (METROGEL) 0.75 % Topical Gel Apply to affected area twice daily. [place]akima-3 Fatty Acids (FISH OIL) 500 mg cap Take 1 capsule by mouth once daily. blood sugar diagnostic (BLOOD GLUCOSE TEST) test strip Test blood sugar(s) 1 times daily. Dx: Type 2 DM - Controlled E11.9 Insulin: Yes Lancets lancets Test blood sugar(s) 1 times daily. Dx: Type 2 DM - Controlled E11.9 Insulin: No Orhgeckf-Ys-Dvi-Fe-FA ( FORMULA) ORAL Tab Take 1 tablet [...] Age of Onset Alcohol/Drug Mother Heart Father AL Cancer Father PANCREATIC CANCER Diabetes Father Diabetes [...] six to eight weeks documented in this encounterTrumbull [facility] Medical Center04-27-2022 Nurse Note* Nirmala Storey LPN - 02/28/2022 4:36 PM EDT HOSPITAL/ER FOLLOW UP: Reason for visit: back pain/headache(different pain not her chronic pain) Pain went from lower backup to shoulders. Which facility: [facility] Date of visit: 02/27/22 Diagnosis: back pain, hypertension Testing done: CT scan and labs Treatment given: no new changes Current symptoms: mild headache still and back pain, just feels off Was just feeling off. Aching. Cold chills. Scheduled with Dr Sanchez. documented in this encounterTrumbull Regional Medical Center04-26-2022 Miscellaneous Notes* Telephone Encounter - Quinn Lazo LPN - 02/27/2022 12:44 PM EDT Appt scheduled. Quinn Lazo LPN documented in this encounterTrumbull Regional Medical Center04-22-2022 Miscellaneous Notes* Telephone Encounter - [...] Thank you. LEVAR Jasmine documented in this encounterTrumbull [facility] Medical Center04-06-2022 Miscellaneous Notes* Telephone Encounter - Nirmala Storey LPN - 02/07/2022 4:09 PM EDT Acquaintablehart message sent to patient. * Telephone Encounter - Ivette Grimes MD - 02/07/2022 3:38 PM EDT Let her her know her labs look great. * Telephone Encounter - Nirmala Storey LPN - 02/07/2022 2:33 PM EDT Received lab results from [facility]. Placed on desk for review. documented in this encounterTrumbull Regional Medical Center04-04-2022 Miscellaneous Notes* Telephone Encounter - Tessy Wadsworth Ma - 02/05/2022 12:25 PM EDT Labs faxed within [employer] to update if there are any issues. Tessy Wadsworth Ma documented in this encounterTrumbull Regional Medical Center03-28-2022 Miscellaneous Notes* Telephone Encounter - Darrion Carson - 01/29/2022 3:13 PM EDT I have attempted to contact this patient by phone, Left brief message on [employer] voicemail stating to call and schedule. Darrion [...] shoulder pain. Thank you! documented in this encounterTrumbull Regional Medical Center02-02-2013 History of Past illness Narrative* [...] of this encounter (statuses as of 01/30/2022) [facility] Narrative* [...] of this encounter (statuses as of 02/05/2022) [facility] Narrative* [...] of this encounter (statuses as of 02/07/2022) [facility] Narrative* [...] of this encounter (statuses as of 02/07/2022) [facility] Narrative* [...] of this encounter (statuses as of 02/08/2022) [facility] Narrative* [...] of this encounter (statuses as of 02/23/2022) [facility] Narrative* [...] of this encounter (statuses as of 02/27/2022) [facility] Narrative* [...] of this encounter (statuses as of 02/28/2022) [facility] Narrative* [...] of this encounter (statuses as of 03/05/2022) [facility] Narrative* [...] of this encounter (statuses as of 03/16/2022) [facility] Narrative* [...] of this encounter (statuses as of 03/29/2022) [facility] Narrative* [...] of this encounter (statuses as of 03/29/2022) [facility] Narrative* [...] of this encounter (statuses as of 03/30/2022) [facility] Narrative* [...] of this encounter (statuses as of 04/05/2022) [facility] Narrative* [...] of this encounter (statuses as of 04/09/2022) [facility] Narrative* [...] of this encounter (statuses as of 04/10/2022) [facility] Narrative* [...] of this encounter (statuses as of 04/16/2022) [facility] Narrative* [...] of this encounter (statuses as of 04/16/2022) [facility] Narrative* [...] of this encounter (statuses as of 04/19/2022) [facility] Narrative* [...] of this encounter (statuses as of 05/01/2022) [facility] Narrative* [...] of this encounter (statuses as of 05/03/2022) [facility] Narrative* [...] of this encounter (statuses as of 05/08/2022) [facility] Narrative* [...] of this encounter (statuses as of 05/10/2022) [facility] Narrative* [...] of this encounter (statuses as of 05/11/2022) [facility] Narrative* [...] of this encounter (statuses as of 05/25/2022) [facility] Narrative* [...] of this encounter (statuses as of 05/29/2022) [facility] Narrative* [...] of this encounter (statuses as of 06/05/2022) [facility] Narrative* [...] of this encounter (statuses as of 06/05/2022) [facility] Narrative* [...] of this encounter (statuses as of 06/07/2022) [facility] Narrative* [...] of this encounter (statuses as of 06/07/2022) [facility] Narrative* [...] of this encounter (statuses as of 06/22/2022) [facility] Narrative* [...] of this encounter (statuses as of 07/03/2022) [facility] Narrative* [...] of this encounter (statuses as of 07/10/2022) [facility] Narrative* [...] of this encounter (statuses as of 07/19/2022) [facility] Narrative* [...] of this encounter (statuses as of 07/19/2022) [facility] Narrative* [...] of this encounter (statuses as of 07/23/2022) [facility] Narrative* [...] of this encounter (statuses as of 08/01/2022) [facility] Narrative* [...] of this encounter (statuses as of 08/02/2022) [facility] N[facility]ative* [...] of this encounter (statuses as of 08/03/2022) [facility] Narrative* [...] of this encounter (statuses as of 08/06/2022) [facility] N[facility]* [...] of this encounter (statuses as of 08/08/2022) [facility] Narrative* [...] of this encounter (statuses as of 08/08/2022) [facility] Narrative* [...] of this encounter (statuses as of 08/08/2022) [facility] Narrative* [...] of this encounter (statuses as of 08/27/2022) [facility] Narrative* [...] of this encounter (statuses as of 09/03/2022) [facility] complaint+Reason for visit Narrative* Chief Complaint [...] dysfunction of thoracic region Disc displacement, lumbar [facility] Work Phone: Discharge summary Author Sam Pearl [facility] February 04, 2024 3:49am Note Date/Time February 04, 2024 2:07 am [facility] Medical Records Department [facility] [place] [address] Emergency Department Summary 02/04/24 MR#: [id number] Acct: [id number] Name: TORI GRAY Rep #:[id number] : 1980 43 From: Sam Pearl MD [...] last A1c was in the 5.1 range. [facility] Medical History Abnormal ECG Acute bronchitis [...] %) nasal spray 2 spray intranasal BID othwzjyme53/20/20 [History Last Taken 08/03/23] omega-3 fatty acids [...] Neuro Narrative: Normal speech. No aphasia. Normal unqyti-jy-huje and aezl-ri-oeea bilaterally. No confusion. Sensorium / Orientation: alert [...] do not think this is a primary AMBULATORY CARE NURSE problem. She describes visual disturbance being diffuse, [...] (Auto) 71.0 H Lymph % (Auto) 19.8 Carbon % (Auto) 6.6 Eos % (Auto) 0.9 [...] Clarity Clear Urine pH 7.0 Ur Specific Empire 1.010 Urine Protein 15 H Urine Glucose [...] your Primary Care Provider. Call [facility] ([phone]) or report to the closest Emergency Room. Call 911 if necessary. 02/04/24 0349 <Electronically signed by Sam Pearl MD> Cosigner Signature (if applicable): CC: Dr. Ivette Grimes MD ~ Signed [facility] Work Phone: Evaluation note* Diagnosis Onset [...] region acute Disc displacement, lumbar ch ronic [facility] Work Phone: Evaluation note* Diagnosis Upper back pain- Primary Acute midline low back pain without sciatica Type 2 diabetes mellitus with microalbuminuria, with long-term current use of insulin ([facility]) LETITIA (obstructive sleep apnea) Obstructive sleep apnea (adult) (pediatric) Lumbar disc disorder Other and unspecified disc disorder of lumbar region Elevated BP without diagnosis of hypertension documented in this encounter [facility] [place] [facility]* Diagnosis Myofascial pain- Primary Mylagia and myositis, unspecified Chronic left shoulder pain Pain in joint, shoulder region Neuropathic pain Neuralgia, neuritis, and radiculitis, unspecified Adhesive capsulitis of left shoulder Adhesive capsulitis of shoulder Primary osteoarthritis of left shoulder Primary localized osteoarthrosis, shoulder region documented in this encounter [facility] [place] [facility]* Diagnosis Migraine without aura and without status migrainosus, not intractable Migraine without aura, without mention of intractable migraine without mention of status migrainosus documented in this encounter [facility] [place] [facility]* Diagnosis Intractable migraine without aura and [...] [facility] Diagnosis Microalbuminuria- Primary Proteinuria Anxiety [...] Chest pain, unspecified [facility] Diagnosis SOB (shortness of breath) Shortness of breath documented in this encounter [facility]* Diagnosis Adhesive capsulitis of left shoulder- Primary Adhesive capsulitis of shoulder Primary osteoarthritis of left shoulder Primary localized osteoarthrosis, shoulder region [facility] Diagnosis Chronic left shoulder pain- Primary Pain in joint, shoulder region Adhesive capsulitis of left shoulder Adhesive capsulitis of shoulder Primary osteoarthritis of left shoulder Primary localized osteoarthrosis, shoulder region Myofascial pain Mylagia and myositis, unspecified [facility] Diagnosis Proteinuria, unspecified type- Primary [...] comorbidity present (HCC) documented in this encounter [facility]* Diagnosis Intractable migraine without aura and [...] comorbidity present (HCC) documented in this encounter [facility]* Diagnosis Intractable chronic migraine without aura and without status migrainosus- Primary Chronic migraine without aura, with intractable migraine, so stated, without mention of status migrainosus Mixed migraine and muscle contraction headache Migraine, unspecified, without mention of intractable migraine without mention of status migrainosus documented in this encounter [facility]* Diagnosis Onset Date Resolution [...] region acute Disc displacement, lumbar ch ronic [facility] Work Phone: Evaluation note* Diagnosis Type [...] Fatigue, unspecified type documented in this encounter [facility]* Diagnosis Onset Date Resolution [...] dysfunction of thoracic region chronic Obesity chronic [facility] Work Phone: Evaluation note* Diagnosis Onset [...] chronic Obesity chronic Type 2 diabetes mellitus [facility] Work Phone: Evaluation note* Diagnosis Malaise- Primary Other malaise and fatigue documented [facility] this encounter [facility]* Diagnosis Onset Date Resolution [...] region acute Disc displacement, lumbar ch ronic [facility] Work Phone: Evaluation note* Diagnosis Lightheadedness- Primary Dizziness and giddiness Essential (primary) hypertension Unspecified essential hypertension Prolonged Q-T interval on ECG Nonspecific abnormal electrocardiogram (ECG) (EKG) Type 2 diabetes mellitus with microalbuminuria, with long-term current use of insulin (HCC) Fatty liver Other chronic nonalcoholic liver disease LETITIA (obstructive sleep apnea) Obstructive sleep apnea (adult) (pediatric) documented in this encounter [facility]* Diagnosis Anxiety with depression- Primary [facility] [place] [facility] Diagnosis Onset Date Resolution Status Back [...] region acute Disc displacement, lumbar ch ronic [facility] Work Phone: Evaluation note* Diagnosis Onset [...] region acute Disc displacement, lumbar ch ronic [facility] Work Phone: Evaluation note* Diagnosis VAHE (generalized anxiety disorder)- Primary Generalized anxiety disorder Major depressive disorder, recurrent episode, moderate ([facility]) Major depressive disorder, recurrent episode, moderate documented in this encounter [facility]* Diagnosis Chronic left shoulder pain- Primary Pain in joint, shoulder region Adhesive capsulitis of left shoulder Adhesive capsulitis of shoulder Neuropathic pain Neuralgia, neuritis, and radiculitis, unspecified Myofascial pain Mylagia and myositis, unspecified documented in this encounter [facility]* Diagnosis Chronic left shoulder pain- Primary Pain in joint, shoulder region Adhesive capsulitis of left shoulder Adhesive capsulitis of shoulder Chronic left shoulder pain Pain in joint, shoulder region Adhesive capsulitis of left shoulder Adhesive capsulitis of shoulder [facility] Diagnosis Microalbuminuria Proteinuria Type 2 diabetes mellitus without complication, with long-term current use of insulin ([facility]) Lumbar herniated disc Displacement of lumbar intervertebral disc without myelopathy 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 Displacement of thoracic intervertebral disc without myelopathy Spinal stenosis of thoracolumbar region Spinal stenosis of thoracic region Pain of left upper extremity Chronic left shoulder pain Pain in joint, shoulder region Adhesive capsulitis of left shoulder Adhesive capsulitis of shoulder [facility] Diagnosis Onset Date Resolution Status [...] region acute Disc displacement, lumbar ch ronic [facility] Work Phone: Evaluation note* Diagnosis Onset [...] region acute Disc displacement, lumbar ch ronic [facility] Work Phone: Evaluation note* Diagnosis Worst headache of life- Primary Headache Concussion with loss of consciousness, initial encounter Chronic left shoulder pain Pain in joint, shoulder region Adhesive capsulitis of left shoulder Adhesive capsulitis of shoulder documented in this encounter [facility] [place] [facility]* Diagnosis Headache, unspecified headache type- Primary Concussion with loss of consciousness, initial encounter Chronic left shoulder pain Pain in joint, shoulder region Adhesive capsulitis of left shoulder Adhesive capsulitis of shoulder documented in this encounter [facility]* Diagnosis Post concussion syndrome- [...] capsulitis of shoulder documented in this encounter [facility]* Diagnosis Headache, unspecified headache type- Primary Concussion with loss of consciousness, initial encounter Chronic left shoulder pain Pain in joint, shoulder region Adhesive capsulitis of left shoulder Adhesive capsulitis of shoulder [facility] Post concussion syndrome- Primary Postconcussion syndrome Essential (primary) hypertension Unspecified essential hypertension Microalbuminuria Proteinuria Type 2 diabetes mellitus without complication, with long-term current use of insulin ([facility]) Chronic left shoulder pain Pain in joint, shoulder region Adhesive capsulitis of left shoulder Adhesive capsulitis of shoulder [facility] [place] [facility] Diagnosis Post concussion syndrome- Primary Postconcussion syndrome Essential (primary) hypertension Unspecified essential hypertension Chronic left shoulder pain Pain in joint, shoulder region Adhesive capsulitis of left shoulder Adhesive capsulitis of shoulder [facility] Diagnosis Post concussive syndrome- Primary Postconcussion syndrome Headache, unspecified headache type [facility] [place] [facility] Diagnosis Post concussive syndrome- Primary Postconcussion syndrome Headache, unspecified headache type Injury of neck, subsequent encounter [facility] [place] [facility]* Diagnosis Onset Date Resolution Status Back [...] region acute Disc displacement, lumbar ch ronic [facility] Work Phone: Evaluation note* Diagnosis Intractable chronic migraine without aura and without status migrainosus- Primary Chronic migraine without aura, with intractable migraine, so stated, without mention of status migrainosus [facility] Chronic left shoulder pain- Primary Pain in joint, shoulder region Adhesive capsulitis of left shoulder Adhesive capsulitis of shoulder Neuropathic pain Neuralgia, neuritis, and radiculitis, unspecified Primary osteoarthritis of left shoulder Primary localized osteoarthrosis, shoulder region Myofascial pain Mylagia and myositis, unspecified Lumbar spondylosis Lumbosacral spondylosis without myelopathy [facility] Diagnosis Post concussive syndrome- Primary Postconcussion syndrome Headache, unspecified headache type Injury of neck, subsequent encounter [facility] Diagnosis Soft tissue mass- Primary Disorders of soft tissue, unspecified [facility] Diagnosis VAHE (generalized anxiety disorder)- Primary Generalized anxiety disorder Recurrent major depressive disorder, in full remission (HCC) [facility] Diagnosis Onset Date Resolution Status [...] region acute Disc displacement, lumbar ch ronic [facility] Work Phone: Evaluation note* Diagnosis Anxiety- Primary Anxiety state, unspecified [facility] [place] [facility] Diagnosis Soft tissue mass- Primary Disorders of soft tissue, unspecified Post concussive syndrome Postconcussion syndrome Essential (primary) hypertension Unspecified essential hypertension Type 2 diabetes mellitus with microalbuminuria, with long-term current use of insulin (HCC) Headache, unspecified headache type Myalgia Mylagia and myositis, unspecified [facility] [place] [facility]* Diagnosis Post concussion syndrome- Primary Postconcussion syndrome LETITIA (obstructive sleep apnea) Obstructive sleep apnea (adult) (pediatric) [facility] [place] [facility]* Diagnosis Encounter for gynecological examination (general) (routine) without abnormal findings- Primary documented in this encounter [facility] note* Diagnosis Post concussion syndrome- Primary Postconcussion syndrome LETITIA (obstructive sleep apnea) Obstructive sleep apnea (adult) (pediatric) Intractable acute post-traumatic headache Acute post-traumatic headache Altered awareness, transient Transient alteration of awareness documented in this encounter [facility] note* Diagnosis Onset Date Resolution Status Back [...] region acute Disc displacement, lumbar ch ronic [facility] Work Phone: Evaluation note* Diagnosis Intractable chronic migraine without aura and without status migrainosus- Primary Chronic migraine without aura, with intractable migraine, so stated, without mention of status migrainosus Post concussive syndrome Postconcussion syndrome [facility] Diagnosis Onset Date Resolution [...] region acute Disc displacement, lumbar ch ronic [facility] Work Phone: Evaluation note* Diagnosis Foot pain, right- Primary Pain in limb [facility] Diagnosis Type 2 diabetes mellitus with [...] unspecified headache type [facility]* Diagnosis Memory loss- Primary Attention and concentration deficit Attention or concentration deficit Post concussion syndrome Postconcussion syndrome Intractable migraine without aura and without status migrainosus Migraine without aura, with intractable migraine, so stated, without mention of status migrainosus LETITIA (obstructive sleep apnea) Obstructive sleep apnea (adult) (pediatric) [facility]* Diagnosis Plantar fasciitis- Primary Plantar fascial fibromatosis Calcaneal spur of right foot Calcaneal spur [facility]* Diagnosis SOB (shortness of breath) Shortness of breath [facility] Diagnosis SOB (shortness of breath) Shortness of breath [facility] Diagnosis Onset Date Resolution Status [...] region acute Disc displacement, lumbar ch ronic [facility] Work Phone: Evaluation note* Diagnosis Post concussion syndrome Postconcussion syndrome Intractable acute post-traumatic headache Acute post-traumatic headache Dizziness Dizziness and giddiness Cervicalgia [facility] Diagnosis Post concussive syndrome Postconcussion syndrome Headache, unspecified headache type [facility] [place] [facility] Diagnosis Onset Date Resolution Status Back [...] region acute Disc displacement, lumbar ch ronic [facility] Work Phone: Evaluation note* Diagnosis Onset [...] region acute Disc displacement, lumbar ch ronic [facility] Work Phone: Evaluation note* Diagnosis Essential (primary) hypertension- Primary Unspecified essential hypertension LETITIA (obstructive sleep apnea) Obstructive sleep apnea (adult) (pediatric) Fatty liver Other chronic nonalcoholic liver disease Vertigo Dizziness and giddiness Anxiety Anxiety state, unspecified [facility] Diagnosis Encounter for screening mammogram for malignant neoplasm of breast- Primary Other screening mammogram [facility] Diagnosis Onset Date Resolution [...] ronic Obesity chronic LETITIA (obstructive sleep apnea) [facility] Work Phone: Evaluation note* Diagnosis Intractable chronic migraine without aura and without status migrainosus- Primary Chronic migraine without aura, with intractable migraine, so stated, without mention of status migrainosus [facility] Diagnosis Onset Date Resolution Status Obesity chronic LETITIA (obstructive sleep apnea) [facility] Work Phone: Evaluation note* Diagnosis Intractable chronic migraine without aura and without status migrainosus- Primary Chronic migraine without aura, with intractable migraine, so stated, without mention of status migrainosus [facility] Diagnosis Headache, unspecified headache type [facility] Diagnosis Headache, unspecified headache type [facility] Diagnosis Left sided sciatica- Primary Sciatica Screening for depression [facility] Diagnosis Acute cough- Primary [facility]* Diagnosis Bronchitis- Primary Bronchitis, not specified as acute or chronic Type 2 diabetes mellitus with microalbuminuria, with long-term current use of insulin (HCC) Wheezing [facility]* Diagnosis Type 2 diabetes mellitus with microalbuminuria, with long-term current use of insulin (HCC)- Primary [facility]* Diagnosis Cough, unspecified type- Primary [facility]* Diagnosis Pain of right heel Pain in limb [facility]* Diagnosis Well adult exam- Primary Routine [...] myelopathy, lumbar region [facility]* Diagnosis Intractable chronic migraine without aura and without status migrainosus- Primary Chronic migraine without aura, with intractable migraine, so stated, without mention of status migrainosus [facility]* Diagnosis Dysuria- Primary Type 2 diabetes mellitus with microalbuminuria, with long-term current use of insulin (HCC) Primary insomnia Persistent disorder of initiating or maintaining sleep [facility] Diagnosis Flank pain- Primary Abdominal pain, unspecified site [facility] Diagnosis Flank pain Abdominal pain, unspecified site documented in this encounter [facility] note* Diagnosis SOB (shortness of breath) Shortness of breath documented in this encounter [facility] note* Diagnosis Sinobronchitis- Primary Unspecified sinusitis (chronic) Hypokalemia Hypopotassemia documented in this encounter [facility] note* Diagnosis Sinobronchitis- Primary Unspecified sinusitis (chronic) documented in this encounter [facility] note* Diagnosis Encounter for screening mammogram for breast cancer documented in this encounter [facility] note* Diagnosis LETITIA (obstructive sleep apnea)- Primary Obstructive sleep apnea (adult) (pediatric) Flank pain Abdominal pain, unspecified site Headache, unspecified headache type Type 2 diabetes mellitus with microalbuminuria, with long-term current use of insulin (HCC) Essential (primary) hypertension Unspecified essential hypertension Chronic left shoulder pain Pain in joint, shoulder region Anxiety Anxiety state, unspecified Screening for depression documented in this encounter [facility] note* Diagnosis Intractable chronic migraine without aura and without status migrainosus- Primary Chronic migraine without aura, with intractable migraine, so stated, without mention of status migrainosus Chronic left shoulder pain Pain in joint, shoulder region documented in this encounter [facility] note* Diagnosis Intractable chronic migraine without aura and with status migrainosus- Primary Chronic migraine without aura, with intractable migraine, so stated, with status migrainosus documented in this encounter [facility] note* Diagnosis Spasm of muscle documented in this encounter [facility] note* Diagnosis Flank pain Abdominal pain, unspecified site documented in this encounter [facility] note* Diagnosis Well adult exam- Primary Routine [...] for breast cancer documented in this encounter [facility] note* Diagnosis LUQ pain Abdominal pain, left upper quadrant Flank pain Abdominal pain, unspecified site [facility] Diagnosis Type 2 diabetes mellitus with microalbuminuria, with long-term current use of insulin (HCC) [facility] Electrophysiology Location: None Selected [facility] Work Phone: Hospital Discharge instructions Additional [...] care physician for further outpatient evaluation and management.[facility] Work Phone: Reason for referral (narrative)* Diagnostic Procedure Only (Routine) - Pending Review Specialty Diagnoses / Procedures Referred By Petra meek Referred To Contact XR IMAGING Diagnoses Rib pain Procedures XR RIBS/CHEST 3V AP RIB/OBLS/CXR LEFT RADEX RIBS UNI W/POSTEROANT CH MINIMUM 3 VIEWS Ivette Grimes MD [address] [place] [address] Xr Imaging Referral ID Status Reason Start Date Expiration Date Visits Requested Visits Authorized [id number] Pending Review Auto-Generat ed Referral 05/01/2022 05/31/2023 1 1 [facility] for referral (narrative)* - Pending Review Specialty Diagnoses / Procedures Referred By Contlety t Referred To Contact Physical Therapy Diagnoses Chronic left shoulder pain Adhesive capsulitis of left shoulder Primary osteoarthritis of left shoulder Procedures CONSULT TO PHYSICAL THERAPY Adelina Mason, THOM.POLYGRAPH EXAMINER [address] [place] [address] Referral ID Status Reason Start Date Expiration Date V isits Requested Visits Authorized [id number] Pending Review 05/24/2022 08/22/2022 1 1 [facility] for referral (narrative)* Outpatient Procedure (Routine) - Closed Specialty Diagnoses / Procedures Referred By Contac t Referred To Contact [facility] Diagnoses Prolonged Q-T interval on ECG Procedures ECG COMPLETE ECG ROUTINE ECG W/LEAST 12 LDS W/I&R Ivette Grimes MD [address] [place] [address] [facility] [place] [address] [place] [id number] Referral ID Status Reason Start Date Expiration Date V isits Requested Visits Authorized [id number] Closed Auto-Generate d Referral 09/04/2022 09/04/2023 1 1 [facility] for referral (narrative)* Diagnostic Procedure Only (Routine) - Pending Review Specialty Diagnoses / Procedures Referred By Vladimirac t Referred To Contact US IMAGING Diagnoses Soft tissue mass Procedures US HEAD/NECK SOFT TISSUE OTHER US SOFT TISSUE HEAD & NECK REAL TIME IMGE DOCM Ivette Grimes MD [address] [place] [id number] [facility] Referral ID Status Reason Start Date Expiration Date Visits Requested Visits Authorized [id number] Pending Review Auto-Generat ed Referral 01/31/2023 03/01/2024 1 1 [facility] for referral (narrative)* Outpatient Procedure (Routine) - Pending Review Specialty Diagnoses / Procedures Referred By Contac t Referred To Contact [facility] Diagnoses Altered awareness, transient Procedures EPIL EEG ROUTINE ELECTROENCEPHALOGRAM REC COMA/SLEEP ONLY Fatuma Beckford PA-C [address] [place] [address] [facility] [place] [address] [place] [id number] Referral ID Status Reason Start Date Expiration Date Visits Requested Visits Authorized [id number] Pending Review Auto-Generat ed Referral 03/05/2023 03/05/2024 1 1 [facility] for referral (narrative)* Diagnostic Procedure Only (Routine) - Pending Review Specialty Diagnoses / Procedures Referred By Contac t Referred To Contact BR IMAGING Diagnoses Encounter for screening mammogram for malignant neoplasm of breast Procedures FLASH SCREENING SCREENING MAMMOGRAPHY BI 2-VIEW BREAST INC CAD Ivette Grimes MD [address] [place] [address] [facility] [address] [place] [address] Referral ID Status Reason Start Date Expiration Date Visits Requested Visits Authorized [id number] Pending Review Auto-Generat ed Referral 06/06/2023 07/05/2024 1 1 * Transition of Care (Routine) - Ref Not Required Specialty Diagnoses / Procedures Referred By Petra t Referred To Contact Pain Management Diagnoses Chronic left shoulder pain Herniation of lumbar intervertebral disc with radiculopathy Procedures CONSULT TO PAIN MGT Ivette Grimes MD [address] [place] [address] Referral ID Status Reason Start Date Expiration Date Visits Requested Visits Authorized [id number] Ref Not Required PCP Requested Referral 06/06/2023 06/05/2024 1 1 [facility] for referral (narrative)* Diagnostic Procedure Only (Routine) - Closed Specialty Diagnoses / Procedures Referred By Contac t Referred To Contact MR IMAGING Diagnoses Post concussion syndrome Intractable acute post-traumatic headache Dizziness Cervicalgia Procedures MRI CERVICAL SPINE WO IVCON MRI SPINAL CANAL CERVICAL W/O CONTRAST MATRL Ivette Mejia Jr., MD [address] [facility] [address] [place] [address] [place] [address] Referral ID Status Reason Start Date Expiration Date V isits Requested Visits Authorized [id number] Closed Auto-Generat ed Referral Patient Cleared - [...] MATERIAL Ivette Mejia Jr., MD [address] [facility] [address] [place] [address] [place] [address] Referral ID Status Reason Start Date Expiration Date V isits Requested Visits Authorized [id number] Closed Auto-Generat ed Referral Patient Cleared - Admin/Chairm an/Director advise to proceed or did not respond 02/26/2023 02/28/2023 1 1 [facility] for referral (narrative)* Diagnostic Procedure Only (Routine) - Pending Review Specialty Diagnoses / Procedures Referred By Contac t Referred To Contact BR IMAGING Diagnoses Encounter for screening mammogram for malignant neoplasm of breast Procedures FLASH SCREENING W JAQUELIN SCREENING DIGITAL BREAST TOMOSYNTHESIS BI SCREENING MAMMOGRAPHY BI 2-VIEW BREAST INC CAD Ivette Grimes MD [address] [place] [address] [facility] [address] [place] [address] Referral ID Status Reason Start Date Expiration Date Visits Requested Visits Authorized [id number] Pending Review Auto-Generat ed Referral 12/09/2023 01/07/2025 1 1 [facility] for referral (narrative)* Diagnostic Procedure Only (Urgent) - Closed Specialty Diagnoses / Procedures Referred By Contac t Referred To Contact XR IMAGING Diagnoses Pain of right heel Procedures XR FOOT GENERAL 3V AP/LAT/OBL RIGHT RADEX FOOT COMPLETE MINIMUM 3 VIEWS Nicole Anton, PAReneeC [address] [place] [address] [place] [address] Referral ID Status Reason Start Date Expiration Date V isits Requested Visits Authorized [id number] Closed Auto-Generate d Referral 05/28/2023 06/26/2024 1 1 [facility] for referral (narrative)No reason for referral [facility] Reason for visit Narrative* Diagnostic Procedure Only (Routine) - Closed Specialty Diagnoses / Procedures Referred By Contac t Referred To Contact MR IMAGING Diagnoses Post concussion syndrome Intractable acute post-traumatic headache Dizziness Cervicalgia Procedures MRI CERVICAL SPINE WO IVCON MRI SPINAL CANAL CERVICAL W/O CONTRAST Ivette Ansari Jr., MD [address] [facility] [address] [place] [address] [place] [address] Referral ID Status Reason Start Date Expiration Date V isits Requested Visits Authorized [id number] Closed Auto-Generat ed Referral Patient Cleared - Admin/Chairm an/Director advise to proceed or did not respond 02/26/2023 02/28/2023 1 1 [facility] for visit Narrative* Diagnostic Procedure Only (Urgent) - Closed Specialty Diagnoses / Procedures Referred By Contac t Referred To Contact XR IMAGING Diagnoses Pain of right heel Procedures XR FOOT GENERAL 3V AP/LAT/OBL RIGHT RADEX FOOT COMPLETE MINIMUM 3 VIEWS Nicole Anton PA-C [address] [place] [address] [place] [address] Referral ID Status Reason Start Date Expiration Date V isits Requested Visits Authorized [id number] Closed Auto-Generate d Referral 05/28/2023 06/26/2024 1 1 [facility] Family History No Family History [...] Will No November 21 3:58pm Power of Retail Security Professional No November 21, 2021 3:58pm Advance Directive Response Recorded Date/ Time Advance Directives No November 21, 2021 3:58pm Living Will No February 27, 2022 10:01am Power of Retail Security Professional No February 27 10:01am Advance Directive Response Recorded Date/ Time Advance Directives No November 21, 2021 2:58pm Living Will No February 27, 2022 9:01am Power of Retail Security Professional No February 27 9:01am Advance Directive Response Recorded Date/ Time Advance Directives No November 21, 2021 2:58pm Living Will No November 24 11:49am Power of Retail Security Professional No November 24, 2022 11:49am Advance Directive Response Recorded Date/ Time Advance Directives No November 21, 2021 2:58pm Living Will No November 27 3:43pm Power of Retail Security Professional No November 27, 2022 3:43pm Advance Directive Response Recorded Date/ Time Advance Directives No November 21, 2021 3:58pm Living Will No December 03 7:35pm Power of Retail Security Professional No December 03, 2022 7:35pm Advance Directive Response Recorded Date/ Time Advance Directives No November 21, 2021 3:58pm Living Will No May 20, 2023 9:41pm Power of Retail Security Professional No May 20 9:41pm Advance Directive Response Recorded Date/ Time Advance Directives No November 21, 2021 3:58pm Living Will No August 05 9:54am Power of Retail Security Professional No August 05 023 9:54am Advance Directive Response Recorded Date/ Time Advance Directives No November 21, 2021 2:58pm Living Will No August 05 12:04pm Power of Retail Security Professional No August 05 2 023 12:04pm Advance Directive Response Recorded Date/ Time Advance Directives No November 21, 2021 2:58pm Living Will No October 27, 2 023 4:06pm Power of Retail Security Professional No October 27, 2023 4:06pm Advance Directive Response Recorded Date/ Time Advance Directives No November 21, 2021 3:58pm Living Will No February 04, 2024 1:16am Power of Retail Security Professional No February 03 1:16am Advance Directive Response Recorded Date/ Time Advance Directives No October 07, 2024 8:43am Living Will No October 16, 2 024 10:17pm Do you have a Healthcare Power of Retail Security Professional? No October 16, 2024 10:17pm Living Will No November 11 7:01am Do you have a Healthcare Power of Retail Security Professional? No November 11, 2024 7:01am Advance Directive [...] Referral Specialty Diagnoses / Procedures Referred By Petra meek Referred To Contact Diagnoses Intractable migraine without aura and without status migrainosus Procedures CONSULT TO HEADACHE CLINIC OFFICE/OUTPATIENT [facility] 60-74 MINUTES Tara Gillette, INSURANCE VERIFICATION 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.POLYGRAPH EXAMINER [address] [place] [address] Referral ID Status Reason Start Date Expiration Date Visits Requested Visits Authorized [id number] Authorized PCP Requested Referral 06/07/2022 06/07/2023 1 1 Specialty Diagnoses / Procedures Referred By Petra meek Referred To Contact MR IMAGING Diagnoses Post concussion syndrome Intractable acute post-traumatic headache Dizziness Cervicalgia Procedures MRI CERVICAL SPINE WO IVCON MRI SPINAL CANAL CERVICAL W/O CONTRAST MATRL Ivette Mejia Jr., MD [address] [facility] [address] [place] [address] Mr Imaging Referral ID Status Reason Start Date Expiration Date Visits Requested Visits Authorized [id number] Pending Review Auto-Generat ed Referral 12/07/2022 01/06/2024 1 1 Specialty Diagnoses / Procedures Referred By Contac t Referred To Contact MR IMAGING Diagnoses Post concussion syndrome Intractable acute post-traumatic headache Dizziness Cervicalgia Procedures MRI BRAIN WO IVCON MRI BRAIN BRAIN STEM W/O CONTRAST MATERIAL Ivette Mejia Jr., MD [facility] [place] [place] [address] Mr Imaging Referral ID Status Reason Start Date Expiration Date Visits Requested Visits Authorized [id number] Pending Review Auto-Generat ed Referral 12/07/2022 01/06/2024 1 1 Specialty Diagnoses / Procedures Referred By Contac t Referred To Contact CT IMAGING Diagnoses Soft tissue mass Procedures CT NECK SOFT TISSUE W IVCON CT SOFT TISSUE NECK W/CONTRAST MATERIAL Ivette Grimes MD [address] [place] [address] Ct Imaging Referral ID Status Reason Start Date Expiration Date Visits Requested Visits Authorized [id number] Pending Review Auto-Generat ed Referral 02/28/2023 03/29/2024 1 1 Specialty Diagnoses / Procedures Referred By Contac t Referred To Contact [facility] Diagnoses Post concussive syndrome Procedures CONSULT TO SPEECH THERAPY OFFICE/OUTPATIENT [facility] 60-74 MINUTES Fatuma Beckford PA-C [address] [place] [address] [facility] [place] [address] [place] [id number] Referral ID Status Reason Start Date Expiration Date Visits Requested Visits Authorized [id number] Pending Review Auto-Generat ed Referral 05/17/2023 05/16/2024 1 1 Specialty Diagnoses / Procedures Referred By Contac t Referred To Contact Fatuma Beckford PA-C [address] [place] [address] Referral ID Status Reason Start Date Expiration Date Visits Re quested Visits Authorized [id number] Closed 1 1 Specialty Diagnoses / Procedures Referred By Contac t Referred To Contact Diagnoses Type 2 diabetes mellitus with microalbuminuria, with long-term current use of insulin ([facility]) Ivette Grimes MD [address] [place] [address] Referral ID Status Reason Start Date Expiration Date Visits Re quested Visits Authorized [id number] Closed 1 1 Chief Complaint and Reason [...] 10:30am Disc displacement, lumbar June 01 10:30am Chief Complaint Admit Date Back pain March 09, 2025 9:17am LEFT [...] BACK PAIN June 01, 2025 10:3 0am [employer] June 05, 2025 9: 23am PREOP June 10, 2025 12: 47pm BACK PAIN June 17, 2025 9: 27am Reason for Visit Admit Date Segmental and [...] 10:30am Disc displacement, lumbar June 01 10:30am Segmental and somatic dysfunction of cer vical region June 17, 2025 9:27am Segmental and somatic dysfunction of lum bar region June 17, 2025 9:27am Segmental and somatic dysfunction of pel jalil region June 17, 2025 9:27am Segmental and somatic dysfunction of tho racic region June 17, 2025 9:27am Disc displacement, lumbar June 17, 025 9:27am Summary Purpose Additional Source Comments Source Comments (unrecognize d section and content) In the event this informatio n is protected by the Federal Confidentiality of Alcohol and Drug Abuse Patient Records regulations: The Federal rules restrict any use of the information to criminally investigate or prosecute any alcohol or drug abuse patient.[facility] the event this information is protected by the Federal Confidentiality of Alcohol and Drug Abuse Patient Records regulations: The Federal rules restrict any use of the information to criminally investigate or prosecute any alcohol or drug abuse patient.[facility] CenterIn the event this information is protected by the Federal Confidentiality of Alcohol and Drug Abuse Patient Records regulations: The Federal rules restrict any use of the information to criminally investigate or prosecute any alcohol or drug abuse patient.[facility] CenterIn the event this information is protected by the Federal Confidentiality of Alcohol and Drug Abuse Patient Records regulations: The Federal rules restrict any use of the information to criminally investigate or prosecute any alcohol or drug abuse patient.[facility] CenterIn the event this information is protected by the Federal Confidentiality of Alcohol and Drug Abuse Patient Records regulations: The Federal rules restrict any use of the information to criminally investigate or prosecute any alcohol or drug abuse patient.[facility] CenterIn the event this information is protected by the Federal Confidentiality of Alcohol and Drug Abuse Patient Records regulations: The Federal rules restrict any use of the information to criminally investigate or prosecute any alcohol or drug abuse patient.[facility] CenterIn the event this information is protected by the Federal Confidentiality of Alcohol and Drug Abuse Patient Records regulations: The Federal rules restrict any use of the information to criminally investigate or prosecute any alcohol or drug abuse patient.[facility] CenterIn the event this information is protected by the Federal Confidentiality of Alcohol and Drug Abuse Patient Records regulations: The Federal rules restrict any use of the information to criminally investigate or prosecute any alcohol or drug abuse patient.[facility] CenterIn the event this information is protected by the Federal Confidentiality of Alcohol and Drug Abuse Patient Records regulations: The Federal rules restrict any use of the information to criminally investigate or prosecute any alcohol or drug abuse patient.[facility] CenterIn the event this information is protected by the Federal Confidentiality of Alcohol and Drug Abuse Patient Records regulations: The Federal rules restrict any use of the information to criminally investigate or prosecute any alcohol or drug abuse patient.[facility] CenterIn the event this information is protected by the Federal Confidentiality of Alcohol and Drug Abuse Patient Records regulations: The Federal rules restrict any use of the information to criminally investigate or prosecute any alcohol or drug abuse patient.[facility] CenterIn the event this information is protected by the Federal Confidentiality of Alcohol and Drug Abuse Patient Records regulations: The Federal rules restrict any use of the information to criminally investigate or prosecute any alcohol or drug abuse patient.[facility] CenterIn the event this information is protected by the Federal Confidentiality of Alcohol and Drug Abuse Patient Records regulations: The Federal rules restrict any use of the information to criminally investigate or prosecute any alcohol or drug abuse patient.[facility] CenterIn the event this information is protected by the Federal Confidentiality of Alcohol and Drug Abuse Patient Records regulations: The Federal rules restrict any use of the information to criminally investigate or prosecute any alcohol or drug abuse patient.[facility] CenterIn the event this information is protected by the Federal Confidentiality of Alcohol and Drug Abuse Patient Records regulations: The Federal rules restrict any use of the information to criminally investigate or prosecute any alcohol or drug abuse patient.[facility] CenterIn the event this information is protected by the Federal Confidentiality of Alcohol and Drug Abuse Patient Records regulations: The Federal rules restrict any use of the information to criminally investigate or prosecute any alcohol or drug abuse patient.[facility] CenterIn the event this information is protected by the Federal Confidentiality of Alcohol and Drug Abuse Patient Records regulations: The Federal rules restrict any use of the information to criminally investigate or prosecute any alcohol or drug abuse patient.[facility] CenterIn the event this information is protected by the Federal Confidentiality of Alcohol and Drug Abuse Patient Records regulations: The Federal rules restrict any use of the information to criminally investigate or prosecute any alcohol or drug abuse patient.[facility] CenterIn the event this information is protected by the Federal Confidentiality of Alcohol and Drug Abuse Patient Records regulations: The Federal rules restrict any use of the information to criminally investigate or prosecute any alcohol or drug abuse patient.[facility] CenterIn the event this information is protected by the Federal Confidentiality of Alcohol and Drug Abuse Patient Records regulations: The Federal rules restrict any use of the information to criminally investigate or prosecute any alcohol or drug abuse patient.[facility] CenterIn the event this information is protected by the Federal Confidentiality of Alcohol and Drug Abuse Patient Records regulations: The Federal rules restrict any use of the information to criminally investigate or prosecute any alcohol or drug abuse patient.[facility] CenterIn the event this information is protected by the Federal Confidentiality of Alcohol and Drug Abuse Patient Records regulations: The Federal rules restrict any use of the information to criminally investigate or prosecute any alcohol or drug abuse patient.[facility] CenterIn the event this information is protected by the Federal Confidentiality of Alcohol and Drug Abuse Patient Records regulations: The Federal rules restrict any use of the information to criminally investigate or prosecute any alcohol or drug abuse patient.[facility] CenterIn the event this information is protected by the Federal Confidentiality of Alcohol and Drug Abuse Patient Records regulations: The Federal rules restrict any use of the information to criminally investigate or prosecute any alcohol or drug abuse patient.[facility] CenterIn the event this information is protected by the Federal Confidentiality of Alcohol and Drug Abuse Patient Records regulations: The Federal rules restrict any use of the information to criminally investigate or prosecute any alcohol or drug abuse patient.[facility] the event this information is protected by the Federal Confidentiality of Alcohol and Drug Abuse Patient Records regulations: The Federal rules restrict any use of the information to criminally investigate or prosecute any alcohol or drug abuse patient.[facility] CenterIn the event this information is protected by the Federal Confidentiality of Alcohol and Drug Abuse Patient Records regulations: The Federal rules restrict any use of the information to criminally investigate or prosecute any alcohol or drug abuse patient.[facility] CenterIn the event this information is protected by the Federal Confidentiality of Alcohol and Drug Abuse Patient Records regulations: The Federal rules restrict any use of the information to criminally investigate or prosecute any alcohol or drug abuse patient.[facility]In the event this information is protected by the Federal Confidentiality of Alcohol and Drug Abuse Patient Records regulations: The Federal rules restrict any use of the information to criminally investigate or prosecute any alcohol or drug abuse patient.[facility] CenterIn the event this information is protected by the Federal Confidentiality of Alcohol and Drug Abuse Patient Records regulations: The Federal rules restrict any use of the information to criminally investigate or prosecute any alcohol or drug abuse patient.[facility] CenterIn the event this information is protected by the Federal Confidentiality of Alcohol and Drug Abuse Patient Records regulations: The Federal rules restrict any use of the information to criminally investigate or prosecute any alcohol or drug abuse patient.[facility] CenterIn the event this information is protected by the Federal Confidentiality of Alcohol and Drug Abuse Patient Records regulations: The Federal rules restrict any use of the information to criminally investigate or prosecute any alcohol or drug abuse patient.[facility] CenterIn the event this information is protected by the Federal Confidentiality of Alcohol and Drug Abuse Patient Records regulations: The Federal rules restrict any use of the information to criminally investigate or prosecute any alcohol or drug abuse patient.[facility] CenterIn the event this information is protected by the Federal Confidentiality of Alcohol and Drug Abuse Patient Records regulations: The Federal rules restrict any use of the information to criminally investigate or prosecute any alcohol or drug abuse patient.[facility] CenterIn the event this information is protected by the Federal Confidentiality of Alcohol and Drug Abuse Patient Records regulations: The Federal rules restrict any use of the information to criminally investigate or prosecute any alcohol or drug abuse patient.[facility] CenterIn the event this information is protected by the Federal Confidentiality of Alcohol and Drug Abuse Patient Records regulations: The Federal rules restrict any use of the information to criminally investigate or prosecute any alcohol or drug abuse patient.[facility] CenterIn the event this information is protected by the Federal Confidentiality of Alcohol and Drug Abuse Patient Records regulations: The Federal rules restrict any use of the information to criminally investigate or prosecute any alcohol or drug abuse patient.[facility] CenterIn the event this information is protected by the Federal Confidentiality of Alcohol and Drug Abuse Patient Records regulations: The Federal rules restrict any use of the information to criminally investigate or prosecute any alcohol or drug abuse patient.[facility] CenterIn the event this information is protected by the Federal Confidentiality of Alcohol and Drug Abuse Patient Records regulations: The Federal rules restrict any use of the information to criminally investigate or prosecute any alcohol or drug abuse patient.[facility] CenterIn the event this information is protected by the Federal Confidentiality of Alcohol and Drug Abuse Patient Records regulations: The Federal rules restrict any use of the information to criminally investigate or prosecute any alcohol or drug abuse patient.[facility] CenterIn the event this information is protected by the Federal Confidentiality of Alcohol and Drug Abuse Patient Records regulations: The Federal rules restrict any use of the information to criminally investigate or prosecute any alcohol or drug abuse patient.[facility] CenterIn the event this information is protected by the Federal Confidentiality of Alcohol and Drug Abuse Patient Records regulations: The Federal rules restrict any use of the information to criminally investigate or prosecute any alcohol or drug abuse patient.[facility] CenterIn the event this information is protected by the Federal Confidentiality of Alcohol and Drug Abuse Patient Records regulations: The Federal rules restrict any use of the information to criminally investigate or prosecute any alcohol or drug abuse patient.[facility] CenterIn the event this information is protected by the Federal Confidentiality of Alcohol and Drug Abuse Patient Records regulations: The Federal rules restrict any use of the information to criminally investigate or prosecute any alcohol or drug abuse patient.[facility] CenterIn the event this information is protected by the Federal Confidentiality of Alcohol and Drug Abuse Patient Records regulations: The Federal rules restrict any use of the information to criminally investigate or prosecute any alcohol or drug abuse patient.[facility] CenterIn the event this information is protected by the Federal Confidentiality of Alcohol and Drug Abuse Patient Records regulations: The Federal rules restrict any use of the information to criminally investigate or prosecute any alcohol or drug abuse patient.[facility] CenterIn the event this information is protected by the Federal Confidentiality of Alcohol and Drug Abuse Patient Records regulations: The Federal rules restrict any use of the information to criminally investigate or prosecute any alcohol or drug abuse patient.[facility] CenterIn the event this information is protected by the Federal Confidentiality of Alcohol and Drug Abuse Patient Records regulations: The Federal rules restrict any use of the information to criminally investigate or prosecute any alcohol or drug abuse patient.[facility] CenterIn the event this information is protected by the Federal Confidentiality of Alcohol and Drug Abuse Patient Records regulations: The Federal rules restrict any use of the information to criminally investigate or prosecute any alcohol or drug abuse patient.[facility] CenterIn the event this information is protected by the Federal Confidentiality of Alcohol and Drug Abuse Patient Records regulations: The Federal rules restrict any use of the information to criminally investigate or prosecute any alcohol or drug abuse patient.[facility] CenterIn the event this information is protected by the Federal Confidentiality of Alcohol and Drug Abuse Patient Records regulations: The Federal rules restrict any use of the information to criminally investigate or prosecute any alcohol or drug abuse patient.[facility] CenterIn the event this information is protected by the Federal Confidentiality of Alcohol and Drug Abuse Patient Records regulations: The Federal rules restrict any use of the information to criminally investigate or prosecute any alcohol or drug abuse patient.[facility] CenterIn the event this information is protected by the Federal Confidentiality of Alcohol and Drug Abuse Patient Records regulations: The Federal rules restrict any use of the information to criminally investigate or prosecute any alcohol or drug abuse patient.[facility] CenterIn the event this information is protected by the Federal Confidentiality of Alcohol and Drug Abuse Patient Records regulations: The Federal rules restrict any use of the information to criminally investigate or prosecute any alcohol or drug abuse patient.[facility] CenterIn the event this information is protected by the Federal Confidentiality of Alcohol and Drug Abuse Patient Records regulations: The Federal rules restrict any use of the information to criminally investigate or prosecute any alcohol or drug abuse patient.[facility] CenterIn the event this information is protected by the Federal Confidentiality of Alcohol and Drug Abuse Patient Records regulations: The Federal rules restrict any use of the information to criminally investigate or prosecute any alcohol or drug abuse patient.[facility] CenterIn the event this information is protected by the Federal Confidentiality of Alcohol and Drug Abuse Patient Records regulations: The Federal rules restrict any use of the information to criminally investigate or prosecute any alcohol or drug abuse patient.[facility] CenterIn the event this information is protected by the Federal Confidentiality of Alcohol and Drug Abuse Patient Records regulations: The Federal rules restrict any use of the information to criminally investigate or prosecute any alcohol or drug abuse patient.[facility] CenterIn the event this information is protected by the Federal Confidentiality of Alcohol and Drug Abuse Patient Records regulations: The Federal rules restrict any use of the information to criminally investigate or prosecute any alcohol or drug abuse patient.[facility] CenterIn the event this information is protected by the Federal Confidentiality of Alcohol and Drug Abuse Patient Records regulations: The Federal rules restrict any use of the information to criminally investigate or prosecute any alcohol or drug abuse patient.[facility] CenterIn the event this information is protected by the Federal Confidentiality of Alcohol and Drug Abuse Patient Records regulations: The Federal rules restrict any use of the information to criminally investigate or prosecute any alcohol or drug abuse patient.[facility] CenterIn the event this information is protected by the Federal Confidentiality of Alcohol and Drug Abuse Patient Records regulations: The Federal rules restrict any use of the information to criminally investigate or prosecute any alcohol or drug abuse patient.[facility] CenterIn the event this information is protected by the Federal Confidentiality of Alcohol and Drug Abuse Patient Records regulations: The Federal rules restrict any use of the information to criminally investigate or prosecute any alcohol or drug abuse patient.[facility] CenterIn the event this information is protected by the Federal Confidentiality of Alcohol and Drug Abuse Patient Records regulations: The Federal rules restrict any use of the information to criminally investigate or prosecute any alcohol or drug abuse patient.[facility] CenterIn the event this information is protected by the Federal Confidentiality of Alcohol and Drug Abuse Patient Records regulations: The Federal rules restrict any use of the information to criminally investigate or prosecute any alcohol or drug abuse patient.[facility] CenterIn the event this information is protected by the Federal Confidentiality of Alcohol and Drug Abuse Patient Records regulations: The Federal rules restrict any use of the information to criminally investigate or prosecute any alcohol or drug abuse patient.[facility] CenterIn the event this information is protected by the Federal Confidentiality of Alcohol and Drug Abuse Patient Records regulations: The Federal rules restrict any use of the information to criminally investigate or prosecute any alcohol or drug abuse patient.[facility] CenterIn the event this information is protected by the Federal Confidentiality of Alcohol and Drug Abuse Patient Records regulations: The Federal rules restrict any use of the information to criminally investigate or prosecute any alcohol or drug abuse patient.[facility] CenterIn the event this information is protected by the Federal Confidentiality of Alcohol and Drug Abuse Patient Records regulations: The Federal rules restrict any use of the information to criminally investigate or prosecute any alcohol or drug abuse patient.[facility] CenterIn the event this information is protected by the Federal Confidentiality of Alcohol and Drug Abuse Patient Records regulations: The Federal rules restrict any use of the information to criminally investigate or prosecute any alcohol or drug abuse patient.[facility] CenterIn the event this information is protected by the Federal Confidentiality of Alcohol and Drug Abuse Patient Records regulations: The Federal rules restrict any use of the information to criminally investigate or prosecute any alcohol or drug abuse patient.[facility] CenterIn the event this information is protected by the Federal Confidentiality of Alcohol and Drug Abuse Patient Records regulations: The Federal rules restrict any use of the information to criminally investigate or prosecute any alcohol or drug abuse patient.[facility] CenterIn the event this information is protected by the Federal Confidentiality of Alcohol and Drug Abuse Patient Records regulations: The Federal rules restrict any use of the information to criminally investigate or prosecute any alcohol or drug abuse patient.[facility] CenterIn the event this information is protected by the Federal Confidentiality of Alcohol and Drug Abuse Patient Records regulations: The Federal rules restrict any use of the information to criminally investigate or prosecute any alcohol or drug abuse patient.[facility] CenterIn the event this information is protected by the Federal Confidentiality of Alcohol and Drug Abuse Patient Records regulations: The Federal rules restrict any use of the information to criminally investigate or prosecute any alcohol or drug abuse patient.[facility] the event this information is protected by the Federal Confidentiality of Alcohol and Drug Abuse Patient Records regulations: The Federal rules restrict any use of the information to criminally investigate or prosecute any alcohol or drug abuse patient.[facility] CenterIn the event this information is protected by the Federal Confidentiality of Alcohol and Drug Abuse Patient Records regulations: The Federal rules restrict any use of the information to criminally investigate or prosecute any alcohol or drug abuse patient.[facility] CenterIn the event this information is protected by the Federal Confidentiality of Alcohol and Drug Abuse Patient Records regulations: The Federal rules restrict any use of the information to criminally investigate or prosecute any alcohol or drug abuse patient.[facility]In the event this information is protected by the Federal Confidentiality of Alcohol and Drug Abuse Patient Records regulations: The Federal rules restrict any use of the information to criminally investigate or prosecute any alcohol or drug abuse patient.[facility] CenterIn the event this information is protected by the Federal Confidentiality of Alcohol and Drug Abuse Patient Records regulations: The Federal rules restrict any use of the information to criminally investigate or prosecute any alcohol or drug abuse patient.[facility] CenterIn the event this information is protected by the Federal Confidentiality of Alcohol and Drug Abuse Patient Records regulations: The Federal rules restrict any use of the information to criminally investigate or prosecute any alcohol or drug abuse patient.[facility] CenterIn the event this information is protected by the Federal Confidentiality of Alcohol and Drug Abuse Patient Records regulations: The Federal rules restrict any use of the information to criminally investigate or prosecute any alcohol or drug abuse patient.[facility] CenterIn the event this information is protected by the Federal Confidentiality of Alcohol and Drug Abuse Patient Records regulations: The Federal rules restrict any use of the information to criminally investigate or prosecute any alcohol or drug abuse patient.[facility] CenterIn the event this information is protected by the Federal Confidentiality of Alcohol and Drug Abuse Patient Records regulations: The Federal rules restrict any use of the information to criminally investigate or prosecute any alcohol or drug abuse patient.[facility] CenterIn the event this information is protected by the Federal Confidentiality of Alcohol and Drug Abuse Patient Records regulations: The Federal rules restrict any use of the information to criminally investigate or prosecute any alcohol or drug abuse patient.[facility] CenterIn the event this information is protected by the Federal Confidentiality of Alcohol and Drug Abuse Patient Records regulations: The Federal rules restrict any use of the information to criminally investigate or prosecute any alcohol or drug abuse patient.[facility] CenterIn the event this information is protected by the Federal Confidentiality of Alcohol and Drug Abuse Patient Records regulations: The Federal rules restrict any use of the information to criminally investigate or prosecute any alcohol or drug abuse patient.[facility] CenterIn the event this information is protected by the Federal Confidentiality of Alcohol and Drug Abuse Patient Records regulations: The Federal rules restrict any use of the information to criminally investigate or prosecute any alcohol or drug abuse patient.[facility] CenterIn the event this information is protected by the Federal Confidentiality of Alcohol and Drug Abuse Patient Records regulations: The Federal rules restrict any use of the information to criminally investigate or prosecute any alcohol or drug abuse patient.[facility] CenterIn the event this information is protected by the Federal Confidentiality of Alcohol and Drug Abuse Patient Records regulations: The Federal rules restrict any use of the information to criminally investigate or prosecute any alcohol or drug abuse patient.[facility] CenterIn the event this information is protected by the Federal Confidentiality of Alcohol and Drug Abuse Patient Records regulations: The Federal rules restrict any use of the information to criminally investigate or prosecute any alcohol or drug abuse patient.[facility] CenterIn the event this information is protected by the Federal Confidentiality of Alcohol and Drug Abuse Patient Records regulations: The Federal rules restrict any use of the information to criminally investigate or prosecute any alcohol or drug abuse patient.[facility] CenterIn the event this information is protected by the Federal Confidentiality of Alcohol and Drug Abuse Patient Records regulations: The Federal rules restrict any use of the information to criminally investigate or prosecute any alcohol or drug abuse patient.[facility] CenterIn the event this information is protected by the Federal Confidentiality of Alcohol and Drug Abuse Patient Records regulations: The Federal rules restrict any use of the information to criminally investigate or prosecute any alcohol or drug abuse patient.[facility] CenterIn the event this information is protected by the Federal Confidentiality of Alcohol and Drug Abuse Patient Records regulations: The Federal rules restrict any use of the information to criminally investigate or prosecute any alcohol or drug abuse patient.[facility] CenterIn the event this information is protected by the Federal Confidentiality of Alcohol and Drug Abuse Patient Records regulations: The Federal rules restrict any use of the information to criminally investigate or prosecute any alcohol or drug abuse patient.[facility] CenterIn the event this information is protected by the Federal Confidentiality of Alcohol and Drug Abuse Patient Records regulations: The Federal rules restrict any use of the information to criminally investigate or prosecute any alcohol or drug abuse patient.[facility] CenterIn the event this information is protected by the Federal Confidentiality of Alcohol and Drug Abuse Patient Records regulations: The Federal rules restrict any use of the information to criminally investigate or prosecute any alcohol or drug abuse patient.[facility] CenterIn the event this information is protected by the Federal Confidentiality of Alcohol and Drug Abuse Patient Records regulations: The Federal rules restrict any use of the information to criminally investigate or prosecute any alcohol or drug abuse patient.[facility] CenterIn the event this information is protected by the Federal Confidentiality of Alcohol and Drug Abuse Patient Records regulations: The Federal rules restrict any use of the information to criminally investigate or prosecute any alcohol or drug abuse patient.[facility] CenterIn the event this information is protected by the Federal Confidentiality of Alcohol and Drug Abuse Patient Records regulations: The Federal rules restrict any use of the information to criminally investigate or prosecute any alcohol or drug abuse patient.[facility] CenterIn the event this information is protected by the Federal Confidentiality of Alcohol and Drug Abuse Patient Records regulations: The Federal rules restrict any use of the information to criminally investigate or prosecute any alcohol or drug abuse patient.[facility] CenterIn the event this information is protected by the Federal Confidentiality of Alcohol and Drug Abuse Patient Records regulations: The Federal rules restrict any use of the information to criminally investigate or prosecute any alcohol or drug abuse patient.[facility] CenterIn the event this information is protected by the Federal Confidentiality of Alcohol and Drug Abuse Patient Records regulations: The Federal rules restrict any use of the information to criminally investigate or prosecute any alcohol or drug abuse patient.[facility] CenterIn the event this information is protected by the Federal Confidentiality of Alcohol and Drug Abuse Patient Records regulations: The Federal rules restrict any use of the information to criminally investigate or prosecute any alcohol or drug abuse patient.[facility] CenterIn the event this information is protected by the Federal Confidentiality of Alcohol and Drug Abuse Patient Records regulations: The Federal rules restrict any use of the information to criminally investigate or prosecute any alcohol or drug abuse patient.[facility] CenterIn the event this information is protected by the Federal Confidentiality of Alcohol and Drug Abuse Patient Records regulations: The Federal rules restrict any use of the information to criminally investigate or prosecute any alcohol or drug abuse patient.[facility] CenterIn the event this information is protected by the Federal Confidentiality of Alcohol and Drug Abuse Patient Records regulations: The Federal rules restrict any use of the information to criminally investigate or prosecute any alcohol or drug abuse patient.[facility]In the event this information is protected by the Federal Confidentiality of Alcohol and Drug Abuse Patient Records regulations: The Federal rules restrict any use of the information to criminally investigate or prosecute any alcohol or drug abuse patient.[facility]In the event this information is protected by the Federal Confidentiality of Alcohol and Drug Abuse Patient Records regulations: The Federal rules restrict any use of the information to criminally investigate or prosecute any alcohol or drug abuse patient.[facility] CenterIn the event this information is protected by the Federal Confidentiality of Alcohol and Drug Abuse Patient Records regulations: The Federal rules restrict any use of the information to criminally investigate or prosecute any alcohol or drug abuse patient.[facility]In the event this information is protected by the Federal Confidentiality of Alcohol and Drug Abuse Patient Records regulations: The Federal rules restrict any use of the information to criminally investigate or prosecute any alcohol or drug abuse patient.[facility]In the event this information is protected by the Federal Confidentiality of Alcohol and Drug Abuse Patient Records regulations: The Federal rules restrict any use of the information to criminally investigate or prosecute any alcohol or drug abuse patient.[facility]In the event this information is protected by the Federal Confidentiality of Alcohol and Drug Abuse Patient Records regulations: The Federal rules restrict any use of the information to criminally investigate or prosecute any alcohol or drug abuse patient.[facility]In the event this information is protected by the Federal Confidentiality of Alcohol and Drug Abuse Patient Records regulations: The Federal rules restrict any use of the information to criminally investigate or prosecute any alcohol or drug abuse patient.[facility]In the event this information is protected by the Federal Confidentiality of Alcohol and Drug Abuse Patient Records regulations: The Federal rules restrict any use of the information to criminally investigate or prosecute any alcohol or drug abuse patient.[facility]In the event this information is protected by the Federal Confidentiality of Alcohol and Drug Abuse Patient Records regulations: The Federal rules restrict any use of the information to criminally investigate or prosecute any alcohol or drug abuse patient.[facility]In the event this information is protected by the Federal Confidentiality of Alcohol and Drug Abuse Patient Records regulations: The Federal rules restrict any use of the information to criminally investigate or prosecute any alcohol or drug abuse patient.[facility]In the event this information is protected by the Federal Confidentiality of Alcohol and Drug Abuse Patient Records regulations: The Federal rules restrict any use of the information to criminally investigate or prosecute any alcohol or drug abuse patient.[facility]In the event this information is protected by the Federal Confidentiality of Alcohol and Drug Abuse Patient Records regulations: The Federal rules restrict any use of the information to criminally investigate or prosecute any alcohol or drug abuse patient.[facility]In the event this information is protected by the Federal Confidentiality of Alcohol and Drug Abuse Patient Records regulations: The Federal rules restrict any use of the information to criminally investigate or prosecute any alcohol or drug abuse patient.[facility]In the event this information is protected by the Federal Confidentiality of Alcohol and Drug Abuse Patient Records regulations: The Federal rules restrict any use of the information to criminally investigate or prosecute any alcohol or drug abuse patient.[facility]In the event this information is protected by the Federal Confidentiality of Alcohol and Drug Abuse Patient Records regulations: The Federal rules restrict any use of the information to criminally investigate or prosecute any alcohol or drug abuse patient.[facility]In the event this information is protected by the Federal Confidentiality of Alcohol and Drug Abuse Patient Records regulations: The Federal rules restrict any use of the information to criminally investigate or prosecute any alcohol or drug abuse patient.[facility] CenterIn the event this information is protected by the Federal Confidentiality of Alcohol and Drug Abuse Patient Records regulations: The Federal rules restrict any use of the information to criminally investigate or prosecute any alcohol or drug abuse patient.[facility] the event this information is protected by the Federal Confidentiality of Alcohol and Drug Abuse Patient Records regulations: The Federal rules restrict any use of the information to criminally investigate or prosecute any alcohol or drug abuse patient.[facility] CenterIn the event this information is protected by the Federal Confidentiality of Alcohol and Drug Abuse Patient Records regulations: The Federal rules restrict any use of the information to criminally investigate or prosecute any alcohol or drug abuse patient.[facility]In the event this information is protected by the Federal Confidentiality of Alcohol and Drug Abuse Patient Records regulations: The Federal rules restrict any use of the information to criminally investigate or prosecute any alcohol or drug abuse patient.[facility]In the event this information is protected by the Federal Confidentiality of Alcohol and Drug Abuse Patient Records regulations: The Federal rules restrict any use of the information to criminally investigate or prosecute any alcohol or drug abuse patient.[facility]In the event this information is protected by the Federal Confidentiality of Alcohol and Drug Abuse Patient Records regulations: The Federal rules restrict any use of the information to criminally investigate or prosecute any alcohol or drug abuse patient.[facility]In the event this information is protected by the Federal Confidentiality of Alcohol and Drug Abuse Patient Records regulations: The Federal rules restrict any use of the information to criminally investigate or prosecute any alcohol or drug abuse patient.[facility]In the event this information is protected by the Federal Confidentiality of Alcohol and Drug Abuse Patient Records regulations: The Federal rules restrict any use of the information to criminally investigate or prosecute any alcohol or drug abuse patient.[facility]In the event this information is protected by the Federal Confidentiality of Alcohol and Drug Abuse Patient Records regulations: The Federal rules restrict any use of the information to criminally investigate or prosecute any alcohol or drug abuse patient.[facility]In the event this information is protected by the Federal Confidentiality of Alcohol and Drug Abuse Patient Records regulations: The Federal rules restrict any use of the information to criminally investigate or prosecute any alcohol or drug abuse patient.[facility]In the event this information is protected by the Federal Confidentiality of Alcohol and Drug Abuse Patient Records regulations: The Federal rules restrict any use of the information to criminally investigate or prosecute any alcohol or drug abuse patient.[facility]In the event this information is protected by the Federal Confidentiality of Alcohol and Drug Abuse Patient Records regulations: The Federal rules restrict any use of the information to criminally investigate or prosecute any alcohol or drug abuse patient.[facility]In the event this information is protected by the Federal Confidentiality of Alcohol and Drug Abuse Patient Records regulations: The Federal rules restrict any use of the information to criminally investigate or prosecute any alcohol or drug abuse patient.[facility]In the event this information is protected by the Federal Confidentiality of Alcohol and Drug Abuse Patient Records regulations: The Federal rules restrict any use of the information to criminally investigate or prosecute any alcohol or drug abuse patient.[facility]In the event this information is protected by the Federal Confidentiality of Alcohol and Drug Abuse Patient Records regulations: The Federal rules restrict any use of the information to criminally investigate or prosecute any alcohol or drug abuse patient.[facility]In the event this information is protected by the Federal Confidentiality of Alcohol and Drug Abuse Patient Records regulations: The Federal rules restrict any use of the information to criminally investigate or prosecute any alcohol or drug abuse patient.[facility]In the event this information is protected by the Federal Confidentiality of Alcohol and Drug Abuse Patient Records regulations: The Federal rules restrict any use of the information to criminally investigate or prosecute any alcohol or drug abuse patient.[facility]In the event this information is protected by the Federal Confidentiality of Alcohol and Drug Abuse Patient Records regulations: The Federal rules restrict any use of the information to criminally investigate or prosecute any alcohol or drug abuse patient.[facility]In the event this information is protected by the Federal Confidentiality of Alcohol and Drug Abuse Patient Records regulations: The Federal rules restrict any use of the information to criminally investigate or prosecute any alcohol or drug abuse patient.[facility]In the event this information is protected by the Federal Confidentiality of Alcohol and Drug Abuse Patient Records regulations: The Federal rules restrict any use of the information to criminally investigate or prosecute any alcohol or drug abuse patient.[facility]In the event this information is protected by the Federal Confidentiality of Alcohol and Drug Abuse Patient Records regulations: The Federal rules restrict any use of the information to criminally investigate or prosecute any alcohol or drug abuse patient.[facility]In the event this information is protected by the Federal Confidentiality of Alcohol and Drug Abuse Patient Records regulations: The Federal rules restrict any use of the information to criminally investigate or prosecute any alcohol or drug abuse patient.[facility]In the event this information is protected by the Federal Confidentiality of Alcohol and Drug Abuse Patient Records regulations: The Federal rules restrict any use of the information to criminally investigate or prosecute any alcohol or drug abuse patient.[facility]In the event this information is protected by the Federal Confidentiality of Alcohol and Drug Abuse Patient Records regulations: The Federal rules restrict any use of the information to criminally investigate or prosecute any alcohol or drug abuse patient.[facility]In the event this information is protected by the Federal Confidentiality of Alcohol and Drug Abuse Patient Records regulations: The Federal rules restrict any use of the information to criminally investigate or prosecute any alcohol or drug abuse patient.[facility]In the event this information is protected by the Federal Confidentiality of Alcohol and Drug Abuse Patient Records regulations: The Federal rules restrict any use of the information to criminally investigate or prosecute any alcohol or drug abuse patient.[facility]In the event this information is protected by the Federal Confidentiality of Alcohol and Drug Abuse Patient Records regulations: The Federal rules restrict any use of the information to criminally investigate or prosecute any alcohol or drug abuse patient.[facility]In the event this information is protected by the Federal Confidentiality of Alcohol and Drug Abuse Patient Records regulations: The Federal rules restrict any use of the information to criminally investigate or prosecute any alcohol or drug abuse patient.[facility]In the event this information is protected by the Federal Confidentiality of Alcohol and Drug Abuse Patient Records regulations: The Federal rules restrict any use of the information to criminally investigate or prosecute any alcohol or drug abuse patient.[facility]In the event this information is protected by the Federal Confidentiality of Alcohol and Drug Abuse Patient Records regulations: The Federal rules restrict any use of the information to criminally investigate or prosecute any alcohol or drug abuse patient.[facility]In the event this information is protected by the Federal Confidentiality of Alcohol and Drug Abuse Patient Records regulations: The Federal rules restrict any use of the information to criminally investigate or prosecute any alcohol or drug abuse patient.[facility]In the event this information is protected by the Federal Confidentiality of Alcohol and Drug Abuse Patient Records regulations: The Federal rules restrict any use of the information to criminally investigate or prosecute any alcohol or drug abuse patient.[facility]In the event this information is protected by the Federal Confidentiality of Alcohol and Drug Abuse Patient Records regulations: The Federal rules restrict any use of the information to criminally investigate or prosecute any alcohol or drug abuse patient.[facility] CenterIn the event this information is protected by the Federal Confidentiality of Alcohol and Drug Abuse Patient Records regulations: The Federal rules restrict any use of the information to criminally investigate or prosecute any alcohol or drug abuse patient.[facility] CenterIn the event this information is protected by the Federal Confidentiality of Alcohol and Drug Abuse Patient Records regulations: The Federal rules restrict any use of the information to criminally investigate or prosecute any alcohol or drug abuse patient.[facility] CenterIn the event this information is protected by the Federal Confidentiality of Alcohol and Drug Abuse Patient Records regulations: The Federal rules restrict any use of the information to criminally investigate or prosecute any alcohol or drug abuse patient.[facility] CenterIn the event this information is protected by the Federal Confidentiality of Alcohol and Drug Abuse Patient Records regulations: The Federal rules restrict any use of the information to criminally investigate or prosecute any alcohol or drug abuse patient.[facility] CenterIn the event this information is protected by the Federal Confidentiality of Alcohol and Drug Abuse Patient Records regulations: The Federal rules restrict any use of the information to criminally investigate or prosecute any alcohol or drug abuse patient.[facility] CenterIn the event this information is protected by the Federal Confidentiality of Alcohol and Drug Abuse Patient Records regulations: The Federal rules restrict any use of the information to criminally investigate or prosecute any alcohol or drug abuse patient.[facility] CenterIn the event this information is protected by the Federal Confidentiality of Alcohol and Drug Abuse Patient Records regulations: The Federal rules restrict any use of the information to criminally investigate or prosecute any alcohol or drug abuse patient.[facility] CenterIn the event this information is protected by the Federal Confidentiality of Alcohol and Drug Abuse Patient Records regulations: The Federal rules restrict any use of the information to criminally investigate or prosecute any alcohol or drug abuse patient.[facility] CenterIn the event this information is protected by the Federal Confidentiality of Alcohol and Drug Abuse Patient Records regulations: The Federal rules restrict any use of the information to criminally investigate or prosecute any alcohol or drug abuse patient.[facility] CenterIn the event this information is protected by the Federal Confidentiality of Alcohol and Drug Abuse Patient Records regulations: The Federal rules restrict any use of the information to criminally investigate or prosecute any alcohol or drug abuse patient.[facility] CenterIn the event this information is protected by the Federal Confidentiality of Alcohol and Drug Abuse Patient Records regulations: The Federal rules restrict any use of the information to criminally investigate or prosecute any alcohol or drug abuse patient.[facility] CenterIn the event this information is protected by the Federal Confidentiality of Alcohol and Drug Abuse Patient Records regulations: The Federal rules restrict any use of the information to criminally investigate or prosecute any alcohol or drug abuse patient.[facility] CenterIn the event this information is protected by the Federal Confidentiality of Alcohol and Drug Abuse Patient Records regulations: The Federal rules restrict any use of the information to criminally investigate or prosecute any alcohol or drug abuse patient.[facility] CenterIn the event this information is protected by the Federal Confidentiality of Alcohol and Drug Abuse Patient Records regulations: The Federal rules restrict any use of the information to criminally investigate or prosecute any alcohol or drug abuse patient.[facility] CenterIn the event this information is protected by the Federal Confidentiality of Alcohol and Drug Abuse Patient Records regulations: The Federal rules restrict any use of the information to criminally investigate or prosecute any alcohol or drug abuse patient.[facility] CenterIn the event this information is protected by the Federal Confidentiality of Alcohol and Drug Abuse Patient Records regulations: The Federal rules restrict any use of the information to criminally investigate or prosecute any alcohol or drug abuse patient.[facility] CenterIn the event this information is protected by the Federal Confidentiality of Alcohol and Drug Abuse Patient Records regulations: The Federal rules restrict any use of the information to criminally investigate or prosecute any alcohol or drug abuse patient.[facility] CenterIn the event this information is protected by the Federal Confidentiality of Alcohol and Drug Abuse Patient Records regulations: The Federal rules restrict any use of the information to criminally investigate or prosecute any alcohol or drug abuse patient.[facility] the event this information is protected by the Federal Confidentiality of Alcohol and Drug Abuse Patient Records regulations: The Federal rules restrict any use of the information to criminally investigate or prosecute any alcohol or drug abuse patient.[facility] CenterIn the event this information is protected by the Federal Confidentiality of Alcohol and Drug Abuse Patient Records regulations: The Federal rules restrict any use of the information to criminally investigate or prosecute any alcohol or drug abuse patient.[facility] CenterIn the event this information is protected by the Federal Confidentiality of Alcohol and Drug Abuse Patient Records regulations: The Federal rules restrict any use of the information to criminally investigate or prosecute any alcohol or drug abuse patient.[facility]In the event this information is protected by the Federal Confidentiality of Alcohol and Drug Abuse Patient Records regulations: The Federal rules restrict any use of the information to criminally investigate or prosecute any alcohol or drug abuse patient.[facility] CenterIn the event this information is protected by the Federal Confidentiality of Alcohol and Drug Abuse Patient Records regulations: The Federal rules restrict any use of the information to criminally investigate or prosecute any alcohol or drug abuse patient.[facility] CenterIn the event this information is protected by the Federal Confidentiality of Alcohol and Drug Abuse Patient Records regulations: The Federal rules restrict any use of the information to criminally investigate or prosecute any alcohol or drug abuse patient.[facility] CenterIn the event this information is protected by the Federal Confidentiality of Alcohol and Drug Abuse Patient Records regulations: The Federal rules restrict any use of the information to criminally investigate or prosecute any alcohol or drug abuse patient.[facility] CenterIn the event this information is protected by the Federal Confidentiality of Alcohol and Drug Abuse Patient Records regulations: The Federal rules restrict any use of the information to criminally investigate or prosecute any alcohol or drug abuse patient.[facility] CenterIn the event this information is protected by the Federal Confidentiality of Alcohol and Drug Abuse Patient Records regulations: The Federal rules restrict any use of the information to criminally investigate or prosecute any alcohol or drug abuse patient.[facility] Reason for Visit (unrecogniz ed section and content) Reason Comments Follow Up Specialty Diagnoses / Procedures Referred By Petra meek Referred To Contact Family Medicine / FAMILY MEDICINE Diagnoses Follow up. Procedures 4C EST Ivette Grimes MD [address] [place] [address] Ivette Grimes MD [address] [place] [address] Referral ID Status Reason Start Date Expiration Date V isits Requested Visits Authorized [id number] Pending Review 01/31/2023 05/01/2023 1 1 Reason Comments New Patient Specialty Diagnoses / Procedures Referred By Petra meek Referred To Contact Pain Management Diagnoses Chronic left shoulder pain Procedures CONSULT TO PAIN MGT OFFICE/OUTPATIENT NEW HIGH MDM 60-74 MINUTES Ivette Grimes MD [address] [place] [address] Referral ID Status Reason Start Date Expiration Date V isits Requested Visits Authorized [id number] Closed PCP Requested Referral 01/22/2022 01/22/2023 1 [...] intractable Specialty Diagnoses / Procedures Referred By Petra t Referred To Contact Neurology Diagnoses Migraine with aura, not intractable, without status migrainosus Procedures CONSULT TO NEUROLOGY OFFICE/OUTPATIENT [facility] M[facility] 60-74 MINUTES Ivette Grimes MD [address] [place] [address] Referral ID Status Reason Start Date Expiration Date V isits Requested Visits Authorized [id number] Closed PCP Requested Referral 12/25/2021 12/25/2022 1 1 Reason Onset Date Comments Refill Request 04/16/2022 Reason Comments Follow Up shoulder pain, switc h medication back to gabapentin Specialty Diagnoses / Procedures Referred By Petra meek Referred To Contact Family Practice / FAMILY MEDICINE Diagnoses Follow-up exam follow up Procedures OFFICE/OUTPATIENT [facility] MDM 40-54 MIN [facility] OFFICE VISIT Ivette Grimes MD [address] [place] [address] Ivette Grimes MD [address] [place] [address] Referral ID Status Reason Start Date Expiration Date Visits Re quested Visits Authorized [id number] Closed 04/17/2022 11/03/2022 1 1 Reason Onset [...] PROCEDURE 20 Elle Sanchez MD [address] [address] Elle Sanchez MD [address] [place] [address] Referral ID Status Reason Start Date Expiration Date Visits Re quested Visits Authorized [id number] Closed 05/10/2022 06/10/2022 1 1 Reason Comments Procedure Follow Up Reason Comments Follow Up Specialty Diagnoses / Procedures Referred By Contac t Referred To Contact Pain Management / PAIN MANAGEMENT Diagnoses OV & follow up inj Procedures OFFICE/OUTPATIENT ESTABLISHED [facility] 30-39 MIN EST PATIENT Elle Sanchez MD [address] [address] Adelina Mason, INSURANCE VERIFICATION 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.POLYGRAPH EXAMINER [address] [place] [address] Referral ID Status Reason Start Date Expiration Date Visits Re quested Visits Authorized [id number] Closed 11/04/2021 11/03/2022 1 1 Reason Comments Appointment Reason Comments Headache follow up Specialty Diagnoses / Procedures Referred By Contac t Referred To Contact Neurology Diagnoses Migraine with aura, not intractable, without status migrainosus Procedures CONSULT TO NEUROLOGY OFFICE/OUTPATIENT [facility] 60-74 MINUTES Ivette Grimes MD [address] [place] [address] Reason Comments Orders Reason Onset Date Comments Refill Request 06/22/2022 Reason Onset Date Comments Refill Request 07/10/2022 Reason Comments Patient Update Injection questions Reason Comments Chronic Migraine X 6-7 years Specialty Diagnoses / Procedures Referred By Contac t Referred To Contact Diagnoses Intractable migraine without aura and without status migrainosus Procedures CONSULT TO HEADACHE CLINIC OFFICE/OUTPATIENT [facility] 60-74 MINUTES Tara Gillette, INSURANCE VERIFICATION 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.POLYGRAPH EXAMINER [address] [place] [address] Referral ID Status Reason Start Date Expiration Date V isits Requested Visits Authorized [id number] Closed PCP Requested Referral 06/07/2022 06/07/2023 1 [...] MYC OFFICE VISIT Ivette Grimes MD [address] [place] [address] Ivette Grimes MD [address] [place] [address] Referral ID Status Reason Start Date Expiration Date V isits Requested Visits Authorized [id number] Authorized 04/17/2022 11/03/2022 99 99 Reason Comments Patient Update Reason Comments Follow Up Acute Visit Reason Comments Fatigue Specialty Diagnoses / Procedures Referred By Petra meek Referred To Contact Family Medicine / FAMILY MEDICINE Diagnoses dizzy-follow up from virtual with Dr Bianchi 09/03 Procedures 4C EST Ivette Grimes MD [address] [place] [address] Ivette Grimes MD [address] [place] [address] Referral ID Status Reason Start Date Expiration Date Visits Re quested Visits Authorized [id number] Closed 09/04/2022 12/03/2022 1 1 Reason Onset [...] MINUTES VIDEO PSYC/PSYL NEW Self Grace Coronel, INSURANCE VERIFICATION 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.POLYGRAPH EXAMINER [address] [place] [address] Referral ID Status Reason Start Date Expiration Date Visits Re quested Visits Authorized [id number] Closed 11/04/2021 11/03/2022 1 1 Reason Comments Follow Up Pain (Shoulder Pain) Left Specialty Diagnoses / Procedures Referred By Contac t Referred To Contact Pain Management / PAIN MANAGEMENT Diagnoses Examination wants to discuss options since Insurance denied RFA Procedures OFFICE/OUTPATIENT ESTABLISHED MOD MDM 30-39 MIN EST PATIENT Self [place], Adelina Cedeno, INSURANCE VERIFICATION 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.POLYGRAPH EXAMINER [address] [place] [address] Referral ID Status Reason Start Date Expiration Date V isits Requested Visits Authorized [id number] Closed Patient Cleared - Admin/Chairm an/Director advise to proceed 11/08/2022 02/06/2023 1 1 Reason Onset Date Comments Refill Request 11/15/2022 Reason Onset Date Comments Refill Request 11/23/2022 Reason Comments ER F/U Reason Comments Patient Question [place] appointment on 12/05/22 Reason Comments Acute Visit [...] comp Specialty Diagnoses / Procedures Referred By Contac t Referred To Contact ADULT NEUROLOGY Diagnoses Chronic migraine without aura, intractable, without status migrainosus G43.719 Intractable chronic migraine without aura and without status migrainosus Procedures BOTULINUM TOXIN A PER 1 UNIT CHEMODERVATE FACIAL/TRIGEM/CERV MUSC MIGRAINE New referral botox 200 units every 90 days [id number] Karen Bansal, INSURANCE VERIFICATION 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.POLYGRAPH EXAMINER [address] [place] [address] Neur Adult Main [address] [phone] Referral ID Status Reason Start Date Expiration Date V isits Requested Visits Authorized [id number] Authorized 08/15/2022 01/30/2023 2 2 Reason Comments [...] Referred By Contac t Referred To Contact ORDER PROCESSOR Diagnoses annual Procedures EST [facility] ANNUAL PATIENT Self Galina Camacho MD [address] [place] [address] Referral ID Status Reason Start Date Expiration Date V isits Requested Visits Authorized [id number] Closed Patient Cleared - INN Insurance Found [...] due on 04/22/23 Fatuma Beckford PA-C [address] [facility] [place] [address] Neur Adult Main [address] [phone] Referral ID Status Reason Start Date Expiration Date V isits Requested Visits Authorized [id number] Authorized 04/02/2023 04/02/2024 4 4 Reason Comments [...] Patient due on 04/22/23 Fatuma Beckford PA-C [address] [place] [address] [place] [address] [place] [address] Referral ID Status Reason Start Date Expiration Date Visits Re quested Visits Authorized [id number] Closed 04/02/2023 04/02/2024 4 4 Reason Comments [...] 08/10/2024 Specialty Diagnoses / Procedures Referred By Contac t Referred To Contact ADULT NEUROLOGY Diagnoses Chronic migraine without aura, intractable, without status migrainosus Procedures BOTULINUM TOXIN A PER 1 UNIT CHEMODERVATE FACIAL/TRIGEM/CERV MUSC MIGRAINE Fatuma Beckford PA-C [address] [place] [address] [place] [address] Neur Brandy [address] [place] [address] Referral ID Status Reason Start Date Expiration Date V isits Requested Visits Authorized [id number] Authorized 07/01/2024 11/03/2024 99 99 Reason Onset [...] Rx Refills Reason Comments SUGAR Yearly Exam Reason Onset Date Comments Refill Request 06/16/2025 Reason Comments Results Care Teams (unrecognized sec tion and content) Bath Steward Relationship Specialty Start Date End Date Ivette Grimes MD [address] [place] [address] PCP - General Family Practice 11/21/13 [facility] [address] [facility] [place] [address] Pharmacist Pharmacy 05/19/20 Bath Steward Relationship Specialty Start Date End Date Ivette Grimes MD [address] [place] [address] PCP - General Family Practice 11/21/13 [facility] [address] [place] [address] Pharmacist Pharmacy 05/19/20 Bath Steward Relationship Specialty Start Date End Date Ivette Grimes MD [address] [facility] [place] [address] PCP - General Family Practice 11/21/13 [facility] [address] [facility] [place] [address] Pharmacist Pharmacy 05/19/20 Bath Steward Relationship Specialty Start Date End Date Ivette Grimes MD [address] [place] [address] PCP - General Family Practice 11/21/13 [facility] [address] [place] [address] Pharmacist Pharmacy 05/19/20 Bath Steward Relationship Specialty Start Date End Date Ivette Grimes MD [address] [facility] [place] [address] PCP - General Family Practice 11/21/13 [facility] [address] [place] [address] Pharmacist Pharmacy 05/19/20 Bath Steward Relationship Specialty Start Date End Date Ivette Grimes MD [address] [facility] [place] [address] PCP - General Family Practice 11/21/13 [facility]sh [facility] [address] [place] [address] Pharmacist Pharmacy 05/19/20 Bath Steward Relationship Specialty Start Date End Date Ivette Grimes MD [address] [facility] [place] [address] PCP - General Family Practice 11/21/13 [facility] [address] [facility] [place] [address] Pharmacist Pharmacy 05/19/20 Bath Steward Relationship Specialty Start Date End Date Ivette Grimes MD [address] [facility] [place] [address] PCP - General Family Practice 11/21/13 [facility] [address] [place] [address] Pharmacist Pharmacy 05/19/20 Bath Steward Relationship Specialty Start Date End Date Ivette Grimes MD [address] [facility] [place] [address] PCP - General Family Practice 11/21/13 Jagdish Carballo, [facility] [address] [place] [address] Pharmacist Pharmacy 05/19/20 Bath Steward Relationship Specialty Start Date End Date Ivette Grimes MD [address] [facility] [place] [address] PCP - General Family Practice 11/21/13 Jagdish Carballo, [facility] [address] [place] [address] Pharmacist Pharmacy 05/19/20 Bath Steward Relationship Specialty Start Date End Date Ivette Grimes MD [address] [facility] [place] [address] PCP - General Family Practice 11/21/13 Jagdish Carballo, [facility] [address] [place] [address] Pharmacist Pharmacy 05/19/20 Bath Steward Relationship Specialty Start Date End Date Ivette Grimes MD [address] [facility] [place] [address] PCP - General Family Practice 11/21/13 Jagdish Carballo, [facility] [address] [place] [address] Pharmacist Pharmacy 05/19/20 Bath Steward Relationship Specialty Start Date End Date Ivette Grimes MD [address] [facility] [place] [address] PCP - General Family Practice 11/21/13 Jagdish Carballo, [facility] [address] [place] [address] Pharmacist Pharmacy 05/19/20 Bath Steward Relationship Specialty Start Date End Date Ivette Grimes MD [address] [place] [address] PCP - General Family Practice 11/21/13 Jagdish Carballo, [facility] [address] [place] [address] Pharmacist Pharmacy 05/19/20 Bath Steward Relationship Specialty Start Date End Date Ivette Grimes MD [address] [place] [address] PCP - General Family Practice 11/21/13 Jagdish Carballo, [facility] [address] [place] [address] Pharmacist Pharmacy 05/19/20 Bath Steward Relationship Specialty Start Date End Date Ivette Grimes MD [address] [facility] [place] [address] PCP - General Family Practice 11/21/13 Jagdish Carballo, [facility] [address] [place] [address] Pharmacist Pharmacy 05/19/20 Bath Steward Relationship Specialty Start Date End Date Ivette Grimse MD [address] [facility] [place] [address] PCP - General Family Practice 11/21/13 Jagdish Carballo, [facility] [address] [place] [address] Pharmacist Pharmacy 05/19/20 Bath Steward Relationship Specialty Start Date End Date Ivette Grimes MD [address] [facility] [place] [address] PCP - General Family Practice 11/21/13 Jagdish Carballo, [facility] [address] [place] [address] Pharmacist Pharmacy 05/19/20 Bath Steward Relationship Specialty Start Date End Date Ivette Grimes MD [address] [facility] [place] [address] PCP - General Family Practice 11/21/13 Jagdish Carballo, [facility] [address] [facility] [place] [address] Pharmacist Pharmacy 05/19/20 Bath Steward Relationship Specialty Start Date End Date Ivette Grimes MD [address] [facility] [place] [address] PCP - General Family Medicine 11/21/13 [facility] [address] [facility] [place] [address] Pharmacist Pharmacy 05/19/20 Bath Steward Relationship Specialty Start Date End Date Ivette Grimes MD [address] [facility] [place] [address] PCP - General Family Medicine 11/21/13 [facility] [address] [facility] [place] [address] Pharmacist Pharmacy 05/19/20 Bath Steward Relationship Specialty Start Date End Date Ivette Grimes MD [address] [facility] [place] [address] PCP - General Family Medicine 11/21/13 [facility] [address] [facility] [place] [address] Pharmacist Pharmacy 05/19/20 Bath Steward Relationship Specialty Start Date End Date Ivette Grimes MD [address] [facility] [place] [address] PCP - General Family Medicine 11/21/13 Jagdish Carballo, [facility] [address] [facility] [place] [address] Pharmacist Pharmacy 05/19/20 Bath Steward Relationship Specialty Start Date End Date Ivette Grimes MD [address] [facility] [place] [address] PCP - General Family Medicine 11/21/13 [facility] [address] [place] [address] Pharmacist Pharmacy 05/19/20 Bath Steward Relationship Specialty Start Date End Date Ivette Grimes MD [address] [place] [address] PCP - General Family Medicine 11/21/13 [facility] [address] [place] [address] Pharmacist Pharmacy 05/19/20 Bath Steward Relationship Specialty Start Date End Date Ivette Grimes MD [address] [facility] [place] [address] PCP - General Family Medicine 11/21/13 [facility] [address] [place] [address] Pharmacist Pharmacy 05/19/20 Bath Steward Relationship Specialty Start Date End Date Ivette Grimes MD [address] [facility] [place] [address] PCP - General Family Medicine 11/21/13 [facility] [address] [place] [address] Pharmacist Pharmacy 05/19/20 Bath Steward Relationship Specialty Start Date End Date Ivette Grimes MD [address] [place] [address] PCP - General Family Medicine 11/21/13 [facility] [address] [facility] [place] [address] Pharmacist Pharmacy 05/19/20 Bath Steward Relationship Specialty Start Date End Date Ivette Grimes MD [address] [facility] [place] [address] PCP - General Family Medicine 11/21/13 Jagdish Carballo, [facility] [address] [place] [address] Pharmacist Pharmacy 05/19/20 Bath Steward Relationship Specialty Start Date End Date Ivette Grimes MD [address] [place] [address] PCP - General Family Medicine 11/21/13 Jagdish Carballo, [facility] [address] [place] [address] Pharmacist Pharmacy 05/19/20 Bath Steward Relationship Specialty Start Date End Date Ivette Grimes MD [address] [place] [address] PCP - General Family Medicine 11/21/13 Jagdish Carballo, [facility] [address] [place] [address] Pharmacist Pharmacy 05/19/20 Bath Steward Relationship Specialty Start Date End Date Ivette Grimes MD [address] [place] [address] PCP - General Family Medicine 11/21/13 Jagdish Carballo, [facility] [address] [place] [address] Pharmacist Pharmacy 05/19/20 Bath Steward Relationship Specialty Start Date End Date Ivette Grimes MD [address] [place] [address] PCP - General Family Medicine 11/21/13 Jagdish Carballo, [facility] [address] [facility] [place] [address] Pharmacist Pharmacy 05/19/20 Bath Steward Relationship Specialty Start Date End Date Ivette Grimes MD [address] [facility] [place] [address] PCP - General Family Medicine 11/21/13 [facility] [address] [facility] [place] [address] Pharmacist Pharmacy 05/19/20 Bath Steward Relationship Specialty Start Date End Date Ivette Grimes MD [address] [place] [address] PCP - General Family Medicine 11/21/13 [facility] [address] [place] [address] Pharmacist Pharmacy 05/19/20 Bath Steward Relationship Specialty Start Date End Date Ivette Grimes MD [address] [place] [address] PCP - General Family Medicine 11/21/13 [facility] [address] [facility] [place] [address] Pharmacist Pharmacy 05/19/20 Jemal Orozco MD [address] [place] [address] Cardiology 10/31/22 Bath Steward Relationship Specialty Start Date End Date Ivette Grimes MD [address] [place] [address] PCP - General Family Medicine 11/21/13 [facility] [address] [facility] [place] [address] Pharmacist Pharmacy 05/19/20 Jemal Orozco MD [address] [place] [address] Cardiology 10/31/22 Bath Steward Relationship Specialty Start Date End Date Ivette Grimes MD [address] [place] [address] PCP - General Family Medicine 11/21/13 [facility] [address] [place] [address] Pharmacist Pharmacy 05/19/20 Jemal Orozco MD [address] [place] [address] Cardiology 10/31/22 Bath Steward Relationship Specialty Start Date End Date Ivette Grimes MD [address] [place] [address] PCP - General Family Medicine 11/21/13 [facility] [address] [place] [address] Pharmacist Pharmacy 05/19/20 Jemal Orozco MD [address] [place], [place] [id number] Cardiology 10/31/22 Team Status: Active Member Role [...] Ivette Mejia MD Attending Provider, Referring P romihaelader Active Team Status: Active Member Role Status [...] Dr. Tod Callejas MD Emergency Provider Active Bath Steward Relationship Specialty Start Date End Date Ivette Grimes MD [address] [place] [address] PCP - General Family Medicine 11/21/13 [facility] [address] [place] [address] Pharmacist Pharmacy 05/19/20 Jemal Orozco MD [address] [place] [address] Cardiology 10/31/22 Bath Steward Relationship Specialty Start Date End Date Ivette Grimes MD [address] [place] [address] PCP - General Family Medicine 11/21/13 [facility] [address] [place] [address] Pharmacist Pharmacy 05/19/20 Jemal Orozco MD [address] [place] [address] Cardiology 10/31/22 Bath Steward Relationship Specialty Start Date End Date Ivette Grimes MD [address] [place] [address] PCP - General Family Medicine 11/21/13 [facility] [address] [place] [address] Pharmacist Pharmacy 05/19/20 Jemal Orozco MD [address] [place] [address] Cardiology 10/31/22 Bath Steward Relationship Specialty Start Date End Date Ivette Grimes MD [address] [place] [address] PCP - General Family Medicine 11/21/13 [facility] [address] [place] [address] Pharmacist Pharmacy 05/19/20 Jemal Orozco MD [address] [place] [address] Cardiology 10/31/22 Bath Steward Relationship Specialty Start Date End Date Ivette Grimes MD [address] [place] [address] PCP - General Family Medicine 11/21/13 [facility] [address] [place] [address] Pharmacist Pharmacy 05/19/20 Jemal Orozco MD [address] [place] [address] Cardiology 10/31/22 Bath Steward Relationship Specialty Start Date End Date Ivette Grimes MD [address] [place] [address] PCP - General Family Medicine 11/21/13 [facility] [address] [facility] [place] [address] Pharmacist Pharmacy 05/19/20 Jemal Orozco MD [address] [place], [place] [id number] Cardiology 10/31/22 Bath Steward Relationship Specialty Start Date End Date Ivette Grimes MD [address] [facility] [place] [address] PCP - General Family Medicine 11/21/13 [facility] [address] [facility] [place] [address] Pharmacist Pharmacy 05/19/20 Jemal Orozco MD [address] [place] [address] Cardiology 10/31/22 Bath Steward Relationship Specialty Start Date End Date Ivette Grimes MD [address] [place] [address] PCP - General Family Medicine 11/21/13 [facility] [address] [place] [address] Pharmacist Pharmacy 05/19/20 Jemal Orozco MD [address] [place] [address] Cardiology 10/31/22 Bath Steward Relationship Specialty Start Date End Date Ivette Grimes MD [address] [facility] [place] [address] PCP - General Family Medicine 11/21/13 [facility] [address] [facility] [place] [address] Pharmacist Pharmacy 05/19/20 Jemal Orozco MD [address] [place] [address] Cardiology 10/31/22 Bath Steward Relationship Specialty Start Date End Date Ivette Grimes MD [address] [place] [address] PCP - General Family Medicine 11/21/13 [facility] [address] [place] [address] Pharmacist Pharmacy 05/19/20 Jemal Orozco MD [address] [place] [address] Cardiology 10/31/22 Bath Steward Relationship Specialty Start Date End Date Ivette Grimes MD [address] [place] [address] PCP - General Family Medicine 11/21/13 [facility] [address] [place] [address] Pharmacist Pharmacy 05/19/20 Jemal Orozco MD [address] [place], [place] [id number] Cardiology 10/31/22 Team Status: Inactive Member Role Status Dates Dr. Ivette Grimes MD Primary Care Provider, Referring Provider Active Dr. Vin Montes MD Attending Provider Active Team Status: Inactive Member Role Status Dates Dr. Ivette Grimes MD Primary Care Provider, Referring Provider Active Jesenia Mecrado ENAMEL MACHINE OPERATOR, ENAMEL MACHINE OPERATOR-C Attending Provider Active Team Status: [...] Pearl MD Attending Provider, Emergency Provider Active Bath Steward Relationship Specialty Start Date End Date Ivette Grimes MD [address] [place] [address] PCP - General Family Medicine 11/21/13 [facility] [address] [place] [address] Pharmacist Pharmacy 05/19/20 Jemal Orozco MD [address] [place] [address] Cardiology 10/31/22 Bath Steward Relationship Specialty Start Date End Date Ivette Grimes MD [address] [place] [address] PCP - General Family Medicine 11/21/13 [facility] [address] [place] [address] Pharmacist Pharmacy 05/19/20 Jemal Orozco MD [address] [place] [address] Cardiology 10/31/22 Bath Steward Relationship Specialty Start Date End Date Ivette Grimes MD [address] [place] [address] PCP - General Family Medicine 11/21/13 [facility] [address] [place] [address] Pharmacist Pharmacy 05/19/20 Jemal Orozco MD [address] [place] [address] Cardiology 10/31/22 Bath Steward Relationship Specialty Start Date End Date Ivette Grimes MD [address] [place] [address] PCP - General Family Medicine 11/21/13 [facility] [address] [place] [address] Pharmacist Pharmacy 05/19/20 Jemal Orozco MD [address] [place], [place] [id number] Cardiology 10/31/22 Team Status: Active Member Role Status Dates Dr. Ivette Grimes MD Primary Care Provider Active Adelina Mason ENAMEL MACHINE OPERATOR, ENAMEL MACHINE OPERATOR-C Attending Provider, Willian alvarez Provider Active Bath Steward Relationship Specialty Start Date End Date Ivette Grimes MD [address] [place] [address] PCP - General Family Medicine 11/21/13 [facility] [address] [place] [address] Pharmacist Pharmacy 05/19/20 Jemal Orozco MD [address] [place] [address] Cardiology 10/31/22 Bath Steward Relationship Specialty Start Date End Date Ivette Grimes MD [address] [place] [address] PCP - General Family Medicine 11/21/13 [facility] [address] [place] [address] Pharmacist Pharmacy 05/19/20 Jemal Orozco MD [address] [place] [address] Cardiology 10/31/22 Bath Steward Relationship Specialty Start Date End Date Ivette Grimes MD [address] [place] [address] PCP - General Family Medicine 11/21/13 [facility] [address] [facility] [place] [address] Pharmacist Pharmacy 05/19/20 Jemal Orozco MD [address] [place] [address] Cardiology 10/31/22 Bath Steward Relationship Specialty Start Date End Date Ivette Grimes MD [address] [facility] [place] [address] PCP - General Family Medicine 11/21/13 [facility] [address] [facility] [place] [address] Pharmacist Pharmacy 05/19/20 Jemal Orozco MD [address] [place] [address] Cardiology 10/31/22 Bath Steward Relationship Specialty Start Date End Date Ivette Grimes MD [address] [facility] [place] [address] PCP - General Family Medicine 11/21/13 MartinJagdish figueroaAlvin J. [facility] [address] [facility] [place] [address] Pharmacist Pharmacy 05/19/20 Jemal Orozco MD [address] [place] [address] Cardiology 10/31/22 Bath Steward Relationship Specialty Start Date End Date Ivette Grimes MD [address] [facility] [place] [address] PCP - General Family Medicine 11/21/13 MartinJagdish figueroaAlvin [facility] [address] [facility] [place] [address] Pharmacist Pharmacy 05/19/20 Jemal Orozco MD [address] [place], [place] [id number] Cardiology 10/31/22 Team Status: Inactive Member Role Status Dates Dr. Ivette Grimes MD Primary Care Provider Active TETO RIDER Attending Provider, Referring Pro vider Active Team Status: Inactive Member Role Status Dates Dr. Ivette Grimes MD Primary Care Provider Active Dr. Sam Pearl MD Emergency Provider Active Bath Steward Relationship Specialty Start Date End Date Ivette Grimes MD [address] [facility] [place] [address] PCP - General Family Medicine 11/21/13 [facility] [address] [place] [address] Pharmacist Pharmacy 05/19/20 Jemal Orozco MD [address] [place] [address] Cardiology 10/31/22 Bath Steward Relationship Specialty Start Date End Date Ivette Grimes MD [address] [facility] [place] [address] PCP - General Family Medicine 11/21/13 [facility] [address] [place] [address] Pharmacist Pharmacy 05/19/20 Jemal Orozco MD [address] [place], [place] [address]078[address] Cardiology 10/31/22 Bath Steward Relationship Specialty Start Date End Date Ivette Grimes MD [address] [place] [address] PCP - General Family Medicine 11/21/13 [facility] [address] [facility] [place] [address] Pharmacist Pharmacy 05/19/20 Jemal Orozco MD [address] [place], [place] [address] Cardiology 10/31/22 Bath Steward Relationship Specialty Start Date End Date Ivette Grimes MD [address] [facility] [place] [address] PCP - General Family Medicine 11/21/13 [facility] [address] [facility] [place] [address] Pharmacist Pharmacy 05/19/20 Jemal Orozco MD [address] [place] [address] Cardiology 10/31/22 Bath Steward Relationship Specialty Start Date End Date Ivette Grimes MD [address] [place] [address] PCP - General Family Medicine 11/21/13 [facility] [address] [place] [address] Pharmacist Pharmacy 05/19/20 Jemal Orozco MD [address] [place], [place] 8204[address] Cardiology 10/31/22 Bath Steward Relationship Specialty Start Date End Date Ivette Grimes MD [address] [place] [address] PCP - General Family Medicine 11/21/13 [facility] [address] [place] [address] Pharmacist Pharmacy 05/19/20 Jemal Orozco MD [address] [place] [address] Cardiology 10/31/22 Bath Steward Relationship Specialty Start Date End Date Ivette Grimes MD [address] [place], [place] 841051 PCP - General Family Medicine 11/21/13 [facility] [address] [place] [address] Pharmacist Pharmacy 05/19/20 Jemal Orozco MD [address] [place] [address] Cardiology 10/31/22 Team Status: Active Member Role Status Dates Dr. Ivette Grimes MD Family Provider Active Team Status: Inactive Member Role Status Dates Dr. Bibiana Rehman DC Attending Provider Active Team Status: Inactive Member Role Status Dates Dr. Ivette Grimes MD Primary Care Provider Active Adelina Mason ENAMEL MACHINE OPERATOR, ENAMEL MACHINE OPERATOR-C Attending Provider, Referrin g Provider [...] MD Admit Provider, Attending Prov ider Active Bath Steward Relationship Specialty Start Date End Date Ivette Grimes MD [address] [place], [place] 204511 PCP - General Family Medicine 11/21/13 [facility] [address] [place] [address] Pharmacist Pharmacy 05/19/20 Jemal Orozco MD [address] [place], [place] [address]44[address] Cardiology 10/31/22 Bath Steward Relationship Specialty Start Date End Date Ivette Grimes MD [address] [place] [address] PCP - General Family Medicine 11/21/13 [facility] [address] [place] [address] Pharmacist Pharmacy 05/19/20 Jemal Orozco MD [address] [place], [place] [address] Cardiology 10/31/22 Bath Steward Relationship Specialty Start Date End Date Ivette Grimes MD [address] [place] [address] PCP - General Family Medicine 11/21/13 [facility] [address] [place] [address] Pharmacist Pharmacy 05/19/20 Jemal Orozco MD [address] [place] [address] Cardiology 10/31/22 Bath Steward Relationship Specialty Start Date End Date Ivette Grimes MD [address] [place] [address] PCP - General Family Medicine 11/21/13 [facility] [address] [place] [address] Pharmacist Pharmacy 05/19/20 Jemal Orozco MD [address] [place] [address] Cardiology 10/31/22 Team Status: Inactive [...] MD Admit Provider, Attending Prov ider Active Bath Steward Relationship Specialty Start Date End Date Ivette Grimes MD [address] [place] [address] PCP - General Family Medicine 11/21/13 [facility] [address] [place] [address] Pharmacist Pharmacy 05/19/20 Jemal Orozco MD [address] [place] [address] Cardiology 10/31/22 Bath Steward Relationship Specialty Start Date End Date Ivette Grimes MD [address] [place] [address] PCP - General Family Medicine 11/21/13 Jagdish Carballo [facility] [address] [place] [address] Pharmacist Pharmacy 05/19/20 Jemal Orozco MD [address] [place] [address] Cardiology 10/31/22 Bath Steward Relationship Specialty Start Date End Date Ivette Grimes MD [address] [place] [address] PCP - General Family Medicine 11/21/13 [facility] [address] [place] [address] Pharmacist Pharmacy 05/19/20 Jemal Orozco MD [address] [place] [address] Cardiology 10/31/22 Team Status: Inactive Member Role Status Dates Dr. Ivette Grimes MD Primary Care Provider Active Dr. Luan Zepeda DO Emergency Provider Active Bath Steward Relationship Specialty Start Date End Date Ivette Grimes MD [address] [place] [address] PCP - General Family Medicine 11/21/13 [facility] [address] [place] [address] Pharmacist Pharmacy 05/19/20 Jemal Orozco MD [address] [place] [address] Cardiology 10/31/22 Bath Steward Relationship Specialty Start Date End Date Ivette Grimes MD [address] [place] [address] PCP - General Family Medicine 11/21/13 Martinhenry [facility] [address] [place] [address] Pharmacist Pharmacy 05/19/20 Jemal Orozco MD [address] [place] [address] Cardiology 10/31/22 Bath Steward Relationship Specialty Start Date End Date Ivette Grimes MD [address] [place] [address] PCP - General Family Medicine 11/21/13 [facility] [address] [place] [address] Pharmacist Pharmacy 05/19/20 Jemal Orozco MD [address] [place] [address] Cardiology 10/31/22 Team Status: Inactive Member Role Status Dates Dr. Ivette Grimes MD Primary Care Provider Active Dr. Luan Zepeda DO Attending Provider, Roxane go Active Bath Steward Relationship Specialty Start Date End Date Ivette Grimes MD [address] [place] [address] PCP - General Family Medicine 11/21/13 Jemal Orozco MD [address] [place] [address] Cardiology 10/31/22 Bath Steward Relationship Specialty Start Date End Date Ivette Grimes MD [address] [place] [address] PCP - General Family Medicine 11/21/13 Jemal Orozco MD [address] [place], [place] 23025[address] Cardiology 10/31/22 Bath Steward Relationship Specialty Start Date End Date Ivette Grimes MD [address] [place], [place] 305871 PCP - General Family Medicine 11/21/13 Jemal Orozco MD [address] [place], [place] 23445[address] Cardiology 10/31/22 Bath Steward Relationship Specialty Start Date End Date Ivette Grimes MD [address] [place], [place] 295521 PCP - General Family Medicine 11/21/13 Jemal Orozco MD [address] [place], [place] 26436[address] Cardiology 10/31/22 Bath Steward Relationship Specialty Start Date End Date Ivette Grimes MD [address] [place] [address] PCP - General Family Medicine 11/21/13 Jemal Orozco MD [address] [place] [address] Cardiology 10/31/22 Bath Steward Relationship Specialty Start Date End Date Ivette Grimes MD [address] [place] [address] PCP - General Family Medicine 11/21/13 Jemal Orozco MD [address] [place] 2665[address] Cardiology 10/31/22 Bath Steward Relationship Specialty Start Date End Date Ivette Grimes MD [address] [place], [place] 026281 PCP - General Family Medicine 11/21/13 Jemal Orozco MD [address] [place], [place] 15833[address] Cardiology 10/31/22 Bath Steward Relationship Specialty Start Date End Date Ivette Grimes MD [address] [place], [place] 622501 PCP - General Family Medicine 11/21/13 Jemal Orozco MD [address] [place], [place] [address] Cardiology 10/31/22 Bath Steward Relationship Specialty Start Date End Date Ivette Grimes MD [address] [place] [address] PCP - General Family Medicine 11/21/13 Jemal Orozco MD [address] [place], [place] [address] Cardiology 10/31/22 Bath Steward Relationship Specialty Start Date End Date Ivette Grimes MD [address] [place], [place] 423781 PCP - General Family Medicine 11/21/13 Jemal Orozco MD [address] [place], [place] 8753095 Cardiology 10/31/22 Bath Steward Relationship Specialty Start Date End Date Ivette Grimes MD [address] [place] [address] PCP - General Family Medicine 11/21/13 Jemal Orozco MD [address] [place], [place] [address] Cardiology 10/31/22 Bath Steward Relationship Specialty Start Date End Date Ivette Grimes MD [address] [place] [address] PCP - General Family Medicine 11/21/13 Jemal Orozco MD [address] [place], [place] 1669[address] Cardiology 10/31/22 Bath Steward Relationship Specialty Start Date End Date Ivette Grimes MD [address] [place] [address] PCP - General Family Medicine 11/21/13 Jemal Orozco MD [address] [place], [place] 28938[address] Cardiology 10/31/22 Bath Steward Relationship Specialty Start Date End Date vIette Grimes MD [address] [place] [address] PCP - General Family Medicine 11/21/13 Jemal Orozco MD [address] [place] [address] Cardiology 10/31/22 Bath Steward Relationship Specialty Start Date End Date Ivette Grimes MD [address] [place], [place] 640741 PCP - General Family Medicine 11/21/13 Jagdish Carballo [facility] [address] [place], [place] [address]2501 Pharmacist Pharmacy 05/19/20 12/25/23 Jemal Orozco MD [address] [place], [place] 617[address] Cardiology 10/31/22 Bath Steward Relationship Specialty Start Date End Date Ivette Grimes MD [address] [place], [place] 565691 PCP - General Family Medicine 11/21/13 Jemal Orozco MD [address] [place], [place] 49820[address] Cardiology 10/31/22 Bath Steward Relationship Specialty Start Date End Date Ivette Grimes MD [address] [place], [place] 946211 PCP - General Family Medicine 11/21/13 Jemal Orozco MD [address] [place], [place] 30398[address] Cardiology 10/31/22 Bath Steward Relationship Specialty Start Date End Date Ivette Grimes MD [address] [place] [address] PCP - General Family Medicine 11/21/13 Jemal Orozco MD [address] [place], [place] 44255[address] Cardiology 10/31/22 Bath Steward Relationship Specialty Start Date End Date Ivette Grimes MD [address] [place] [address] PCP - General Family Medicine 11/21/13 Jemal Orozco MD [address] [place], [place] 28038[address] Cardiology 10/31/22 Bath Steward Relationship Specialty Start Date End Date Ivette Grimes MD [address] [place] [address] PCP - General Family Medicine 11/21/13 Jemal Orozco MD [address] [place], [place] 80028[address] Cardiology 10/31/22 Cindy Edouard, INSURANCE VERIFICATION 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.POLYGRAPH EXAMINER [address] [place] [address] Movie Producer Family Medicine 10/12/24 Lubna De La Garza APRN.POLYGRAPH EXAMINER [address] [place] [address] Movie Producer Family Medicine 10/12/24 Bath Steward Relationship Specialty Start Date End Date Ivette Grimes MD [address] [place], [place] 449251 PCP - General Family Medicine 11/21/13 Jemal Orozco MD [address] [place] [address] Cardiology 10/31/22 Cindy Edouard, INSURANCE VERIFICATION 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.POLYGRAPH EXAMINER [address] [place] [address] Movie Producer Family Medicine 10/12/24 Lubna De La Garza APRN.POLYGRAPH EXAMINER [address] [facility] [place] [address] [facility] [place] [place] 10/12/24 Bath Steward Relationship Specialty Start Date End Date Ivette Grimes MD [address] [facility], [place] 359571 PCP - General Family Medicine 11/21/13 Jemal Orozco MD [address] [place] [address] Cardiology 10/31/22 Cindy Edouard APRN.POLYGRAPH EXAMINER [address] [place] [address] Movie Producer[facility] [place], [place] 10/12/24 Lubna De La Garza APRN.POLYGRAPH EXAMINER [address] [facility] [place] [address] [facility] 10/12/24 Bath Steward Relationship Specialty Start Date End Date Ivette Grimes MD [address] [facility] [place] [address] PCP - General Family Medicine 11/21/13 Jemal Orozco MD [address] [place] [address] Cardiology 10/31/22 Cindy Edouard APRN.POLYGRAPH EXAMINER [address] [place] [address] [facility]Cl[facility] 10/12/24 Lubna De La Garza APRN.POLYGRAPH EXAMINER [address] [facility], [place] [address] Movie Producer Family Medicine 10/12/24 Bath Steward Relationship Specialty Start Date End Date Ivette Grimes MD [address] [place], [place] 459761 PCP - General Family Medicine 11/21/13 Jemal Orozco MD [address] [place], [place] 667[address] Cardiology 10/31/22 Cindy Edouard, INSURANCE VERIFICATION 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.POLYGRAPH EXAMINER [address] [place] [id number] [facility] [place] 10/12/24 Lubna De La Garza INSURANCE VERIFICATION 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.POLYGRAPH EXAMINER [address] [place] [address] [facility] [place], [place] 10/12/24 Bath Steward Relationship Specialty Start Date End Date Ivette Grimes MD [address] [place], [place] [id number] PCP - General Family Medicine 11/21/13 Jemal Orozco MD [address] [place] [address] Cardiology 10/31/22 Cindy Edouard INSURANCE VERIFICATION 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.POLYGRAPH EXAMINER [address] [place] [address] [facility] Family Medicine 10/12/24 Lubna De La Garza INSURANCE VERIFICATION 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.POLYGRAPH EXAMINER [address] [place] [address] Movie Producer Family Medicine 10/12/24 Bath Steward Relationship Specialty Start Date End Date Ivette Grimes MD [address] [facility], [place] [address] PCP - General Family Medicine 11/21/13 Jemal Orozco MD [address] [place], [place] [id number] Cardiology 10/31/22 Cindy Edouard, INSURANCE VERIFICATION 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.POLYGRAPH EXAMINER [address] [place] [address] Movie Producer Family Medicine 10/12/24 Lubna De La Garza INSURANCE VERIFICATION 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.POLYGRAPH EXAMINER [address] [place] [address] Movie Producer Family Medicine 10/12/24 Bath Steward Relationship Specialty Start Date End Date Ivette Grimes MD [address] [facility] [place] [address] PCP - General Family Medicine 11/21/13 Jemal Orozco MD [address] [place], [place] [id number] Cardiology 10/31/22 Cindy Edouard, INSURANCE VERIFICATION 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.POLYGRAPH EXAMINER [address] [place] [address] Movie Producer Family Medicine 10/12/24 Lubna De La Garza INSURANCE VERIFICATION 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.POLYGRAPH EXAMINER [address] [facility] [place] [address] Movie Producer Family Medicine 10/12/24 Bath Steward Relationship Specialty Start Date End Date Ivette Grimes MD [address] [place], [place] [id number] PCP - General Family Medicine 11/21/13 Jemal Orozco MD [address] [place], [place] [id number] Cardiology 10/31/22 Cindy Edouard, INSURANCE VERIFICATION 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.POLYGRAPH EXAMINER [address] [place] [address] Movie Producer Family Medicine 10/12/24 Lubna De La Garza INSURANCE VERIFICATION 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.POLYGRAPH EXAMINER [address] [place] [address] [facility] 10/12/24 Bath Steward Relationship Specialty Start Date End Date Ivette Grimes MD [address] [place] [address] PCP - General Family Medicine 11/21/13 Jemal Orozco MD [address] [place], [place] [id number] Cardiology 10/31/22 Cindy Edouard, INSURANCE VERIFICATION 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.POLYGRAPH EXAMINER [address] [place] [address] Movie Producer Family Medicine 10/12/24 Lubna De La Garza, INSURANCE VERIFICATION 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.POLYGRAPH EXAMINER [address] [place] [address] [facility] Family Medicine 10/12/24 Bath Steward Relationship Specialty Start Date End Date Ivette Grimes MD [address] [place] [address] PCP - General Family Medicine 11/21/13 Jemal Orozco MD [address] [place], [place] [id number] Cardiology 10/31/22 Cindy Edouard APRN.POLYGRAPH EXAMINER [address] [place] [address] Movie Producer Family [facility] 10/12/24 Lubna De La Garza APRN.POLYGRAPH EXAMINER [address] [place] [address] Movie [facility] [place], [place] 10/12/24 Bath Steward Relationship Specialty Start Date End Date Ivette Grimes MD [address] [place], [place] [address]241 PCP - General Family Medicine 11/21/13 Jemal Orozco MD [address] [place] [address] Cardiology 10/31/22 Cindy Edouard APRN.POLYGRAPH EXAMINER [address] [place] [address] [facility] [place] [place] 10/12/24 Lubna De La Garza APRN.POLYGRAPH EXAMINER [address] [place] [address] Movie [facility] [place], [place] 10/12/24 Team Status: Active Member Role Status Dates Dr. Ivette Griems MD Primary Care Provider Active Team Status: [...] January 28, 2025 End: January 28, 2025 Bath Steward Relationship Specialty Start Date End Date Ivette Grimes MD [address] [place] [address] PCP - General Family Medicine 11/21/13 Jemal Orozco MD [address] [place], [place] [phone] Cardiology 10/31/22 Cindy Edouard APRN.POLYGRAPH EXAMINER [address] [place], [place] 216281 [facility] 10/12/24 Lubna De La Garza INSURANCE VERIFICATION 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.POLYGRAPH EXAMINER [address] [place], [place] [address] [facility] 10/12/24 Bath Steward Relationship Specialty Start Date End Date Ivette Grimes MD [address] [place], [place] [id number] PCP - General Family Medicine 11/21/13 Jemal Orozco MD [address] [place] [address] Cardiology 10/31/22 Cindy Edouard, INSURANCE VERIFICATION 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.POLYGRAPH EXAMINER [address] [place], [place] [address] [facility] 10/12/24 Lubna De La Garza, INSURANCE VERIFICATION 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.POLYGRAPH EXAMINER [address] [place], [place] [address] [facility] 10/12/24 Team Status: Inactive Member Role Status [...] March 22, 2025 End: March 22, 2025 Bath Steward Relationship Specialty Start Date End Date Ivette Grimes MD [address] [place] [address] PCP - General Family Medicine 11/21/13 Jemal Orozco MD [address] [place] [phone] Cardiology 10/31/22 Cindy Edouard APRN.POLYGRAPH EXAMINER [address] [place] [address] Movie Producer Family Medicine 10/12/24 Lubna De La Garza INSURANCE VERIFICATION 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.POLYGRAPH EXAMINER [address] [place], [place] [address] [facility] 10/12/24 Team Status: Inactive Member Role Status Dates Dr. Ivette Grimes MD Primary Care Provider Active Start: April 05, 2025 End: April 05, 2025 Dr. Ivette Grimes MD Referring Provider Active Start: April 05, 2025 End: April 05, 2025 Dr. Bibiana Rehman , [place] Attending Provider Active S tart: April 05, 2025 End: April 05, 2025 Bath Steward Relationship Specialty Start Date End Date Ivette Grimes MD [address] [place], [place] [address]381 PCP - General Family Medicine 11/21/13 Jemal Orozco MD [address] [place], [place] [phone] Cardiology 10/31/22 Cindy Edouard, INSURANCE VERIFICATION 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.POLYGRAPH EXAMINER [address] [place], [place] [address] [facility] 10/12/24 Lubna De La Garza INSURANCE VERIFICATION 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.POLYGRAPH EXAMINER [address] [place], [place] [address] [facility] 10/12/24 Team Status: Active Member Role Status [...] June 01, 2025 End: June 01, 2025 Bath Steward Relationship Specialty Start Date End Date Ivette Grimes MD [address] [place], [place] [address] PCP - General Family Medicine 11/21/13 Jemal Orozco MD [address] [place], [place] [id number] Cardiology 10/31/22 Cindy Edouard APRN.POLYGRAPH EXAMINER [address] [place] [address] Movie Producer [facility] 10/12/24 Lubna De La Garza INSURANCE VERIFICATION 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.POLYGRAPH EXAMINER [address] [place] [address] Movie Producer [facility] 10/12/24 Team Status: Inactive Member Role/Relationship Status Dates [...] June 01, 2025 End: June 01, 2025 Team Status: Active Member Role/Relationship Status Dates Dr. Ivette Grimes MD Primary Care Provider Active Start: June 05, 2025 Health Risk Assessment Attending Provider Active Start: June 05, 2025 Health Risk Assessment Referring Provider Active Start: June 05, 2025 Team Status: Active Member Role/Relationship Status Dates Dr. Ivette Grimes MD Primary Care Provider Active Start: June 09, 2025 Dr. Ivette Grimes MD Attending Provider Active Start: June 09, 2025 Dr. Ivette Grimes MD Referring Provider Active Start: June 09, 2025 Team Status: Active Member Role/Relationship Status Dates Dr. Ivette Grimes MD Primary Care Provider Active Start: June 10, 2025 Dr. Vin Montes MD Attending Provider Active S tart: June 10, 2025 Brett Quiroga MD Referring Provider Active St art: June 10, 2025 Team Status: Inactive Member Role/Relationship Status Dates Dr. Ivette Grimes MD Primary Care Provider Active Start: June 17, 2025 End: June 17, 2025 Dr. Ivette Grimes MD Referring Provider Active Start: June 17, 2025 End: June 17, 2025 Dr. Bibiana Rehman DC Attending Provider Active S tart: June 17, 2025 End: June 17, 2025 Team Status: Inactive Member Role/Relationship Status Dates Dr. Ivette Grimes MD Primary Care Provider Active Start: June 09, 2025 End: June 09, 2025 Dr. Ivette Grimes MD Attending Provider Active Start: June 09, 2025 End: June 09, 2025 Dr. Ivette Grimes MD Referring Provider Active Start: June 09, 2025 End: June 09, 2025 Bath Steward Relationship Specialty Start Date End Date Ivette Grimes MD [address] [place] [address] PCP - General Family Medicine 11/21/13 Jemal Orozco MD [address] [place], [place] [phone] Cardiology 10/31/22 Cindy Edouard APRN.POLYGRAPH EXAMINER [address] [place], [place] [address] [facility] 10/12/24 Lubna De La Garza APRN.POLYGRAPH EXAMINER [address] [place], [place] [address] [facility] 10/12/24 INFORMATION SOURCE (unrecogn ized section and content) DATE CREATED AUTHOR 01/25/2023 [facility] DATE CREATED AUTHOR AUTHOR'S ORGANIZ ATION 06/19/2025 [facility] DATE CREATED AUTHOR AUTHOR'S ORGANIZ ATION 06/20/2025 [facility] Inactive Administered Medications - up to [...] BE BASED ON THE PRIMARY CLINICAL RECORDS. [employer] provides no warranty or guarantee of the accuracy or completeness of information in this document.
[2025-06-23 06:50] LABS: Internal QC Validated? YES +Cl - CLEAR BKGD; Pregnancy, Urine Negative Negative; Record Kit Lot#,Urine Preg 0000962302
[2025-06-23] MEDS: Lactated Ringers 1,000 ML 15 ML IV (06:59)
--- NOTE | 2025-06-23 07:12 | PCM.HP.STD ---
HPI - General HPI Narrative TORI GARCIA, is a 45 F who presents for left shoulder arthroscopy, subacromial decompression, debridement. no change to h and p. ok to proceed. rab, post op instructions, narcotic counselling. possible licodaine allergy, but after discussion with anesthesia, the patient and the anesthesia provider have decided to proceed with a block. left shoulder marked. ok to proceed. MR#: [id number] Acct: [id number] Name: TORI GARCIA Rep #: [id number] : 1980 Provider: Dr. Brett Quiroga MD Age/Sex: 44/F Location: [facility] [place] Status: Signed Intake Vital Signs 03/22/2509:08 05/06/2510:04 Height 5 ft 7 in 5 ft 7 in Weight: 275 lb BMI 43.0 Intake Visit Reasons: LEFT SHOULDER Chief Complaint: Left shoulder MRI review Accompanied by: Self Is patient in pain?: Yes Pain scale (1-10): 7 Allergies Corticosteroids (Glucocorticoids) (steroids) Allergy (Verified 05/06/25 10:08) Hiveslidocaine Adverse Reaction (Intermediate, Verified 05/06/25 10:08) Hives Medications ?Medication ?Instructions ?Recorded ?Confirmed ?Type blood sugar diagnostic (Blood #10 ea 04/26/20 05/06/25 History Glucose Test strips) ipratropium bromide 21 mcg (0.03 2 spray intranasal BID allergies 08/23/20 05/06/25 History %) nasal spray albuterol sulfate 90 mcg/actuation 2 puff inhalation Q4H PRN 08/10/22 05/06/25 History aerosol inhaler shortness of breath or wheezing fexofenadine 180 mg tablet 180 mg PO DAILY allergies 08/10/22 05/06/25 History (Allergy Relief (fexofenadine)) levonorgestrel 17.5 mcg/24 hr (up 1 device intrauterine ONCE 08/10/22 05/06/25 History to 5 yrs) 19.5mg intrauterine control device tizanidine 4 mg tablet 4 mg PO Q8H PRN Muscle Spasm 08/10/22 05/06/25 History omeprazole 20 mg capsule,delayed 20 mg PO DAILY PRN gerd 08/16/22 05/06/25 History release topiramate 100 mg tablet 100 mg PO BID seizures 08/16/22 05/06/25 History fluoxetine 20 mg capsule 20 mg PO DAILY mental health 12/28/22 05/06/25 History gabapentin 300 mg capsule 300 mg PO BID nerve pain 12/28/22 05/06/25 History lisinopril 10 mg tablet 10 mg PO DAILY blood pressure 12/28/22 05/06/25 History ondansetron HCl 4 mg tablet 4 mg PO Q8H PRN nausea 12/28/22 05/06/25 History rimegepant 75 mg disintegrating 75 mg PO DAILY PRN migraine 02/04/24 05/06/25 History tablet (Nurtec ODT) headache semaglutide 0.25 mg or 0.5 mg (2 0.5 mg subcut QWEEK 10/16/24 05/06/25 History mg/3 mL) subcutaneous pen injector (Ozempic) potassium chloride 20 mEq oral 20 meq PO BID 7 days #30 ea 11/11/24 05/06/25 Rx packet Have you fallen in the past year?: No PFSH Medical History Abnormal ECG Prolonged Q-T interval on ECG Microalbuminuria LETITIA (obstructive sleep apnea) Back pain 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 Nausea Left shoulder pain Pain of left scapula Left upper extremity numbness Left shoulder strain Obstructive Sleep Apnea-Hypopnea Syndrome Fatty liver Type 2 diabetes mellitus with microalbuminuria Type 2 diabetes mellitus without complication, with long-term current use of insulin History of stent into kidney Anxiety Acute cholecystitis Segmental and somatic dysfunction of cervical region Migraines Acute bronchitis Acute respiratory insufficiency Dyspnea History of obstructive sleep apnea Elevated triglycerides with high cholesterol Calculus of left kidney Nonalcoholic hepatosteatosis Hydroureter, left Hydronephrosis, left Acute kidney injury Pyelonephritis Nephrolithiasis Obesity Hypertension Type 2 diabetes mellitus Segmental and somatic dysfunction of lumbar region Vertigo Left upper quadrant abdominal pain Dysuria Urinary tract infection Segmental and somatic dysfunction of pelvic region Segmental and somatic dysfunction of thoracic region Lumbar facet arthropathy Lumbosacral spondylosis Radiculopathy of lumbosacral region Disc displacement, lumbar Degeneration of intervertebral disc of lumbosacral region Surgical History History of urethral stent (~2018) Hx laparoscopic cholecystectomy (~2005) H/O: (~2005) Family History Father Diabetes Myocardial infarction Pancreatic cancerMother Alcohol abuse Drug abuseGrandfather DiabetesGrandmother Lung cancerGrandmother Heart disease Triple bypass surgery Social History Smoking Status: Never smoker alcohol intake: never substance use type: does not use caffeine: Yes Type: coffee what type of physical activity do you participate in: walking frequency: daily seatbelt use: always do you feel safe at home: Yes HPI LEFT SHOULDER Details: This documentation accurately reflects the service provided and the decisions made by me, Dr. Brett Quiroga MD 05/06/25 0960. Part of today?s visit was documented by [ ], acting as scribe. TORI GARCIA is a 44 year old F here today for follow-up left shoulder MRI. Doing PT with [facility]. getting worse. cant do injections. seems to be getting worse, with ADLs as well. worse with lifting. lat and anterior pain. 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 Supplemental Info [facility] [address] [place], [place] [address] Upper Ext Joint Only(Routine) MR#: [id number] Acct: [id number] Name: TORI GARCIA Rep #: [id number] : 1980 F 44 From: Salazar Tyson MD PCP: Dr. Zeferino Leon MD Status: REG CLI Study: Upper Ext Joint Only(Routine) Date of Exam: 04/17/25 Exam# [id number] Ordering Dr: Brett Quiroga MD PROCEDURE: UPPER EXT JOINT ONLY(ROUTINE) 04/17/2025 REASON FOR EXAM: PAIN, WEAKNESS, FAILED PT TECHNIQUE: T1, T2, PD, MRI of the left upper Extremity. Multiplanar and multisequence images were obtained without IV contrast administration. COMPARISON: COMPARISON : March 11, 2025 x-ray FINDINGS: Bone Marrow: There is no bony contusion or occult fracture. AC joint: The AC joint is aligned. There is no evidence of AC joint separation. There is a type 2 acromion. Rotator cuff: There is no muscular atrophy. There is mild distal supraspinatus tendinopathy without full-thickness tear or retraction. The infraspinatus, subscapularis, and teres minor appear intact. Labrum: There is no visible labral tear. Biceps tendon: The biceps tendon is present within the biceps tendon groove. The biceps tendon anchors appear intact. Effusion: There is a trace joint effusion. There is a small amount of fluid in the subacromial subdeltoid bursa, with bursitis. Soft Tissues: Adjacent soft tissues are unremarkable. MRI/Upper Ext Joint Only(Routine) IMPRESSION: There is mild distal supraspinatus tendinopathy without full-thickness tear or retraction. There is a trace joint effusion. There is a small amount of fluid in the subacromial subdeltoid bursa, with bursitis. Reading Location: [facility] I independently reviewed the imaging. Concur with radiologist report. Coding Level of Care Code Off vis,est,level 4 Diagnoses Left shoulder pain M25.512 Assessment and Plan Assessment and Plan (1) Left shoulder pain: Status: Inactive Plan: TORI GARCIA is a 44 year old F here today for left shoulder pain. MRI shows tendinopathy of the rotator cuff tendonopathy as well as mild bursitis no tears or cysts. There is mild distal supraspinatus tendinopathy without full-thickness tear or retraction. There is a trace joint effusion. There is a small amount of fluid in the subacromial subdeltoid bursa, with bursitis. We went over the nonoperative and surgical option for this. In terms of surgery this would be a left shoulder arthroscopy, subacromial decompression, debridement. If I saw anything else that was not on the MRI I would address that as well such as a rotator cuff tear or SLAP tear. Patient understands wished to go ahead with surgery they have obstructive sleep apnea and diabetes can increase the risk of perioperative complications like infection or possibly the need to stay overnight to monitor breathing I advised the patient to bring her CPAP machine. The patient understands no further questions or concerns on the consent form for surgery. Patient counselled on non-operative and operative means of treating shoulder pain. Conservative options include but not limited to: 1. Rest and Activity Modification: Giving your shoulder time to heal by avoiding movements that cause pain can help. This may involve limiting overhead activities or heavy lifting. 2. Physical Therapy: A physical therapist can guide you through exercises that strengthen the muscles around the shoulder, improve flexibility, and reduce strain on the rotator cuff tendon. 3. Ice and Heat Therapy: Applying ice to the shoulder can help reduce swelling and pain, especially after activity. Heat can be helpful to relax tense muscles and improve blood flow before exercises. 4. Anti-Inflammatory Medications: [id number]-fwqlaux medications like ibuprofen or naproxen can help reduce pain and inflammation in the tendon. 5. Corticosteroid Injections: If the pain is more severe, a steroid injection can reduce inflammation in the shoulder and provide relief for a longer period. 6. Platelet-Rich Plasma (PRP) Injection: This treatment involves using your own blood to promote healing in the tendon. The plasma is rich in growth factors that can encourage tissue repair. 7. TENS (Transcutaneous Electrical Nerve Stimulation): This therapy uses a small electrical current to help manage pain and promote healing by stimulating nerves. Plan Details Goals & Barriers: Goals Decrease spasm Improve intersegmental motion Decrease pain Decrease HAs Barriers Disc bulge Clinical Quality Measures Falls Risk Screening/Assistive Devices Have you fallen in the past year?: No Ortho Exam General General: Yes no acute distress Neurologic: Yes alert and Yes oriented x3 Psychologic: Yes reasonable and appropriate Left Shoulder Skin/Wound: Yes CDI, No ecchymosis, No erythema and No swelling Testing: Yes Hawkin's, Yes Neer's, Yes Speed's, Yes TTP Biceps, Yes TTP AC Joint, Yes AROM-Forward Elevation 0-180, Yes AROM-External Rotation at side 0-60, Yes empty can, No scapular winging and Yes belly press normal SHOULDER: normal motor and sens to axillary N, MRU and AIN/PIN. Hand warm well perfused normal radial pulse. strength FE 4+, ER 5/5. 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 Nausea Left shoulder pain Pain of left scapula Left upper extremity numbness Left shoulder strain Obstructive Sleep Apnea-Hypopnea Syndrome Fatty liver Type 2 diabetes mellitus with microalbuminuria Type 2 diabetes mellitus without complication, with long-term current use of insulin History of stent into kidney Anxiety Acute cholecystitis Segmental and somatic dysfunction of cervical region Migraines Acute bronchitis Acute respiratory insufficiency Dyspnea History of obstructive sleep apnea Elevated triglycerides with high cholesterol Calculus of left kidney Nonalcoholic hepatosteatosis Hydroureter, left Hydronephrosis, left Acute kidney injury Pyelonephritis Nephrolithiasis Obesity Hypertension Type 2 diabetes mellitus Segmental and somatic dysfunction of lumbar region Vertigo Left upper quadrant abdominal pain Dysuria Urinary tract infection Segmental and somatic dysfunction of pelvic region Segmental and somatic dysfunction of thoracic region Lumbar facet arthropathy Lumbosacral spondylosis Radiculopathy of lumbosacral region Disc displacement, lumbar Degeneration of intervertebral disc of lumbosacral region Home Medications ?Medication ?Instructions ?Recorded ?Last Taken ?Type blood sugar diagnostic (Blood #10 ea 04/26/20 Unknown History Glucose Test strips) ipratropium bromide 21 mcg (0.03 2 spray intranasal BID PRN 08/23/20 08/03/23 History %) nasal spray allergies albuterol sulfate 90 mcg/actuation 2 puff inhalation Q4H PRN 08/10/22 08/03/23 History aerosol inhaler shortness of breath or wheezing fexofenadine 180 mg tablet 180 mg PO DAILY allergies 08/10/22 06/22/25 History (Allergy Relief (fexofenadine)) levonorgestrel 17.5 mcg/24 hr (up 1 device intrauterine ONCE 08/10/22 06/23/25 History to 5 yrs) 19.5mg intrauterine control device tizanidine 4 mg tablet 4 mg PO Q8H PRN Muscle Spasm 08/10/22 06/20/25 History omeprazole 20 mg capsule,delayed 20 mg PO DAILY PRN gerd 08/16/22 06/22/25 History release topiramate 100 mg tablet 100 mg PO BID seizures 08/16/22 06/23/25 History fluoxetine 20 mg capsule 20 mg PO QHS mental health 12/28/22 06/22/25 History gabapentin 300 mg capsule 300 mg PO QHS nerve pain 12/28/22 06/22/25 History lisinopril 10 mg tablet 10 mg PO DAILY blood pressure 12/28/22 06/22/25 History ondansetron HCl 4 mg tablet 4 mg PO Q8H PRN nausea 12/28/22 Unknown History rimegepant 75 mg disintegrating 75 mg PO DAILY PRN migraine 02/04/24 11/10/24 History tablet (Nurtec ODT) headache semaglutide 0.25 mg or 0.5 mg (2 0.5 mg subcut QWEEK 10/16/24 06/10/25 History mg/3 mL) subcutaneous pen injector (Ozempic) Allergy/AdvReac Type Severity Reaction Status Date / Time Corticosteroids Allergy Hives Verified 06/23/25 06:38 (Glucocorticoids) (steroids) lidocaine AdvReac Intermediate Hives Verified 06/23/25 06:38 Family History Father Diabetes Myocardial infarction Pancreatic cancer Mother Alcohol abuse Drug abuse Grandfather Diabetes Grandmother Lung cancer Grandmother Heart disease Triple bypass surgery Surgical History History of urethral stent (~2018) Hx laparoscopic cholecystectomy (~2005) H/O: (~2005) Social History Smoking Status: Never smoker alcohol intake: never substance use type: does not use caffeine: Yes Type: coffee what type of physical activity do you participate in: walking frequency: daily seatbelt use: always do you feel safe at home: Yes Vital Signs Vital Signs Vital Signs: 06/23/25 06:40 06/23/25 06:40 Temperature 97.8 F Temperature Source Temporal Pulse Rate 73 Respiratory Rate 18 Respiratory Pattern Normal Blood Pressure 112/70 Blood Pressure Mean 84 Blood Pressure Source Monitor Blood Pressure Position Semi-Fowlers Blood Pressure Location Right Arm Pulse Ox 98 Oxygen Delivery Method Room Air Weight Weight: 277 lb 12.519 oz Body Mass Index (BMI) 43.4 Results Lab / Micro Data Labs: Laboratory Results - last 24 hr 06/23/25 06:30: Urine Test Negative
[2025-06-23] MEDS: Midazolam 2 MG/2 ML Syringe IV (07:29)
--- NOTE | 2025-06-23 07:39 | PCM.PRE.AN2 ---
ASA Classification* ASA Classification ASA Classification: 3 Assessment & Plan Anesthesia* Anesthesia Assessment Anesthesia Assessment: Discussed sedation and/or anesthesia options, risks, benefits, and alternatives with patient/parents/legal guardian/POA. Questions invited. The patient/parents/legal guardian/POA seems to understand and agrees to proceed with anesthesia plan. Reviewed the physical assessment, medical history, allergy history and patient home medications list prior to surgery/procedure/anesthetic and documented any changes. Performed airway and anesthesia risk assessments. Anesthesia Type Anesthesia Type: General and Block (Supraclavicular Block) Anesthesia Focused Assessment* Temperature: 97.8 F Pulse Rate: 73 Blood Pressure: 112/70 Respiratory Rate: 18 Pulse Ox: 98 Airway Assessment Mouth opens: >3 cm Mallampati Score: III Labs Anesthesia Preop lab: CBC WBC 9.5 K/mm3 (4.4-11.0) 06/05/25 09:06/05/25 RBC 4.17 M/mm3 (4.2-5.4) L 06/05/25 09:06/05/25 Hgb 13.5 g/dL (12.0-15.0) 06/05/25 09:06/05/25 Hct 39.2 % (37-47) 06/05/25 09:06/05/25 Plt Count 192 K/mm3 (150-450) 06/05/25 09:06/05/25 CHEMISTRY Potassium 4.0 mmol/L (3.3-5.1) 06/05/25 09:06/05/25 Sodium 137 mmol/L (133-145) 06/05/25 09:06/05/25 Magnesium 1.7 mg/dL (1.6-2.6) 11/11/24 06:37 11/11/24 Phosphorus 2.2 mg/dL (2.7-4.5) L 06/05/25 09:06/05/25 BUN 9 mg/dL (4-19) 06/05/25 09:06/05/25 Creatinine 0.80 mg/dL (0.70-1.20) 06/05/25 09:06/05/25 Glucose 210 mg/dL (70-99) H 06/05/25 09:06/05/25 POC Glucose 157 mg/dL (74-106) H 08/07/23 11:02 08/07/23 TSH 1.54 uIU/mL (0.358-3.74) 08/05/23 10:00 08/05/23 COAG PT 14.4 SECONDS (11.7-14.9) 08/05/23 11:15 08/05/23 Urine Test Negative Negative 06/23/25 06:30 06/23/25 Tst Clinic Negative 05/26/18 16:29 05/26/18 Pre-Assessment Diagnosis/Proposed Procedure Planned Operative Procedure(s): LEFT SHOULDER ARTHROSCOPY, SUBACROMIAL DECOMPRESSION DEBRIDMENT Anesthesia History Anesthesia History - it data architect: Anesthesia History - it data architect Hx Hospitalization No 06/10/25 09:08 Any Problems With Anesthesia Yes: N/V 06/10/25 09:08 Cholinesterase deficiency No 06/10/25 09:08 You/Your Family Experience No 06/10/25 09:08 fever (hyperthermia) with Relationship Recent Exposure to Contagious No 06/23/25 06:40 Disease Does patient have nerve No 06/10/25 09:08 stimulator Patient instructed to have device shut off --Does patient have Pacemaker No 06/23/25 06:40 or ICD? When Was Last Pacemaker Check QUESTION #4 FULL TEXT: You/Your Family Experience fever (hyperthermia) with Anesthesia Last Oral Intake Last Oral intake: Last Oral Intake NPO since 19:00 06/23/25 06:40 Meds taken in AM with sips of Yes 06/23/25 06:40 water? Meds patient instructed to topiramate 06/23/25 06:40 take am of surgery PONV PONV - it data architect: PONV - it data architect Female Yes 06/10/25 09:08 HX of Motion Sickness No 06/10/25 09:08 HX of N/V After Surgery Yes 06/10/25 09:08 Non-Smoker Yes 06/10/25 09:08 Duration of Surgery greater Yes 06/10/25 09:08 than 60 minutes Number of Risk Factors 4 06/10/25 09:08 PONV Score Severe Risk 06/10/25 09:08 Height & Weight Height & Weight: Anesthesia: Height & Weight Height 5 ft 7 in 06/23/25 06:40 Weight: 126 kg 06/23/25 06:40 Body Mass Index (BMI) 43.4 06/23/25 06:40 Respiratory Assessment Respiratory Assessment - it data architect: Respiratory Tract Infection Hx - it data architect Hx Respiratory Tract Infection No 06/10/25 09:08 STOP Sleep Apnea STOP Sleep Apnea - it data architect: STOP Sleep Apnea - it data architect Hx Hypertension No: LISINOPRIL FOR LIVER 06/10/25 09:08 Hx Sleep Apnea Yes 06/10/25 09:08 CPAP No 06/10/25 09:08 BIPAP Yes 06/10/25 09:08 Do you snore loudly (louder than talking or can be heard Do you often feel tired/ fatigued/ sleepy during daytime? Has anyone observed you stop breathing during sleep? STOP Results Positive 06/10/25 09:08 QUESTION #5 FULL TEXT : Do you snore loudly (louder than talking or can be heard through closed doors)? 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 Specify any problems Hx of Preganancy in last 3 No 06/10/25 09:08 Months Nurse Filling Out Transfusion [email or web address] 06/10/25 09:08 & Questions: Date: 06/10/25 06/10/25 09:08 Time: 09:12 06/10/25 09:08 Patient unable to answer at this time (ie. confused, unrespo /Reproduction History /Reproductive History - it data architect: /Reproductive Hx- it data architect Hx Now No 06/10/25 09:08 Gestational Age (in weeks): EDC: Hx Hx Para Hx Section SAB No 06/10/25 09:08 Active Medications Active Medications: Current Medications Generic Name Dose Route Start Last Admin Trade Name Freq PRN Reason Stop Dose Admin Cefazolin Sodium 3 gm/ Sodium 115 mls @ 200 mls/hr 06/23/25 07:30 Chloride IV 06/23/25 08:04 INTRAOP ONE Lactated Ringer's 1,000 mls @ 15 mls/hr 06/23/25 06:30 06/23/25 06:59 IV 15 mls/hr .Q48H GEORGE Administration PFSH Medical History Diabetes Fatty liver Gastric reflux BiPAP (biphasic positive airway pressure) dependence Sleep apnea Non-smoker History of stress test History of echocardiogram Cardiology follow-up encounter Abnormal ECG Prolonged Q-T interval on ECG Microalbuminuria LETITIA (obstructive sleep apnea) Back pain 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 Nausea Left shoulder pain Pain of left scapula Left upper extremity numbness Left shoulder strain Obstructive Sleep Apnea-Hypopnea Syndrome Fatty liver Type 2 diabetes mellitus with microalbuminuria Type 2 diabetes mellitus without complication, with long-term current use of insulin History of stent into kidney Anxiety Acute cholecystitis Segmental and somatic dysfunction of cervical region Migraines Acute bronchitis Acute respiratory insufficiency Dyspnea History of obstructive sleep apnea Elevated triglycerides with high cholesterol Calculus of left kidney Nonalcoholic hepatosteatosis Hydroureter, left Hydronephrosis, left Acute kidney injury Pyelonephritis Nephrolithiasis Obesity Hypertension Type 2 diabetes mellitus Segmental and somatic dysfunction of lumbar region Vertigo Left upper quadrant abdominal pain Dysuria Urinary tract infection Segmental and somatic dysfunction of pelvic region Segmental and somatic dysfunction of thoracic region Lumbar facet arthropathy Lumbosacral spondylosis Radiculopathy of lumbosacral region Disc displacement, lumbar Degeneration of intervertebral disc of lumbosacral region Home Medications ?Medication ?Instructions ?Recorded ?Last Taken ?Type blood sugar diagnostic (Blood #10 ea 04/26/20 Unknown History Glucose Test strips) ipratropium bromide 21 mcg (0.03 2 spray intranasal BID PRN 08/23/20 08/03/23 History %) nasal spray allergies albuterol sulfate 90 mcg/actuation 2 puff inhalation Q4H PRN 08/10/22 08/03/23 History aerosol inhaler shortness of breath or wheezing fexofenadine 180 mg tablet 180 mg PO DAILY allergies 08/10/22 06/22/25 History (Allergy Relief (fexofenadine)) levonorgestrel 17.5 mcg/24 hr (up 1 device intrauterine ONCE 08/10/22 06/23/25 History to 5 yrs) 19.5mg intrauterine control device tizanidine 4 mg tablet 4 mg PO Q8H PRN Muscle Spasm 08/10/22 06/20/25 History omeprazole 20 mg capsule,delayed 20 mg PO DAILY PRN gerd 08/16/22 06/22/25 History release topiramate 100 mg tablet 100 mg PO BID seizures 08/16/22 06/23/25 History fluoxetine 20 mg capsule 20 mg PO QHS mental health 12/28/22 06/22/25 History gabapentin 300 mg capsule 300 mg PO QHS nerve pain 12/28/22 06/22/25 History lisinopril 10 mg tablet 10 mg PO DAILY blood pressure 12/28/22 06/22/25 History ondansetron HCl 4 mg tablet 4 mg PO Q8H PRN nausea 12/28/22 Unknown History rimegepant 75 mg disintegrating 75 mg PO DAILY PRN migraine 02/04/24 11/10/24 History tablet (Nurtec ODT) headache semaglutide 0.25 mg or 0.5 mg (2 0.5 mg subcut QWEEK 10/16/24 06/10/25 History mg/3 mL) subcutaneous pen injector (Ozempic) Allergy/AdvReac Type Severity Reaction Status Date / Time Corticosteroids Allergy Hives Verified 06/23/25 06:38 (Glucocorticoids) (steroids) lidocaine AdvReac Intermediate Hives Verified 06/23/25 06:38 Family History Father Diabetes Myocardial infarction Pancreatic cancer Mother Alcohol abuse Drug abuse Grandfather Diabetes Grandmother Lung cancer Grandmother Heart disease Triple bypass surgery Surgical History History of urethral stent (~2018) Hx laparoscopic cholecystectomy (~2005) H/O: (~2005) Social History Smoking Status: Never smoker alcohol intake: never substance use type: does not use caffeine: Yes Type: coffee what type of physical activity do you participate in: walking frequency: daily seatbelt use: always do you feel safe at home: Yes Review of Systems (Anesthesia) ROS Narrative System reviewed and no additional complaints, except as documented.
[2025-06-23] MEDS: Cefazolin 1 GM/5 ML Vial 3 GM IV (07:40)
[2025-06-23] MEDS: Epinephrine (1 mg/ml) 1 MG/ML VIAL (08:15)
--- NOTE | 2025-06-23 08:31 | PCM.OPRPT ---
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: Yes Healthcare Facility Administrator: jamila Tasks completed by assistant community director: Retracting Additional surgical services assistant?: No Type of Anesthesia: Block,Regional and General RN Documented Start/Stop Times: Operation Date: 06/23/25 07:30 Case Time Into Pre-Op 06/23/25 06:21 Out of Pre-Op 06/23/25 07:40 Anesthesia Start 06/23/25 07:41 Into Room 06/23/25 07:41 Procedure Start 06/23/25 08:09 Procedure Start Time: 08:09 Procedure Stop Time: 08:32 Select all DRAINS/GRAFTS/IMPLANTS that apply: None Estimated Blood Loss: 20 Specimen collected: No Description of surgery: Patient brought to the operating room theater. Placed supine on the table. General anesthesia induced. 3 g of IV Ancef administered prior to the start of the case. Patient transferred left side up lateral decubitus beanbag positioner. Axillary roll placed. SCDs on the legs. All bony prominences padded. Upper extremity prepped and draped in the usual sterile fashion with chlorhexidine-based prep solution allowing over 3 minutes drying time prior to draping. 10 pounds of inline traction with the arm in 40 degrees of abduction was used. Preoperative timeout performed to confirm the site patient and the surgery. Began by inserting the arthroscope into the intra-articular portion of the shoulder. Use spinal needle inside out localization to perform an anterior portal through the rotator interval. Did a full diagnostic arthroscopy. Cartilage on the humeral head and the glenoid was normal. LHB normal, stable anchor. Labrum normal. The subscapularis was normal. Undersurface cuff normal. No fraying of tears. No loose body. I then placed the arthroscope into the subacromial space and used 1 accessory lateral portals. Did a complete bursectomy for moderate amount of mostly inflammatory bursitis. Downsloping of AL acromion. Used high speed kasey to flatten this by 4mm. Again probed the rotator cuff, no tears or fraying. Arthroscopy pictures taken and saved onto the system throughout the case. wounds thoroughly irrigated. Meticulous hemostasis achieved. Portal sites cleaned with wet dry dressing followed by closure of the portals with 3-0 Monocryl sutures. Steri-Strips Adaptic 4 x 4 gauze ABD dressing with cloth tape and an abduction pillow sling was then placed. Patient woken up from general anesthetic transferred off the operating room table and taken to postanesthetic care unit in stable condition. All sponge needle instrument counts were correct. Plan to the patient discharged home according to day surgery criteria. CPT 25819, 42013 Surgical Findings: As above Complications Complications: No Admit VTE Documentation VTE Present on Admission: No VTE Mechan Device Prophylaxis: SCD's VTE Pharm Prophylaxis ordered?: No Reason prophylaxis not ordered: Treatment Not Indicated
--- NOTE | 2025-06-23 08:36 | DCINST_ITS ---
Discharge Instructions Diet Discharge Diet: No restrictions Activity May shower in (days): 1 Ice area for (Minutes): 10 Lifting Restrictions: no lifting over 1 pound Additional Activity Instructions:: pendulums 4x/day, ok for hand wrist elbow rom, ok to take breaks from sling. Dressing / Incision Call your doctor if your incision/area has: Continuous Slow Oozing, Sudden Increased Bleeding, Increased Pain/ Swelling, Increased Redness, Foul Smelling Discharge and Swelling at the incision site Call your doctor if you observe: Fever of 101 or Higher, Coldness, Increased Pain and Numbness or Tingling Change Dressing in: leave in place till F/U Cleanse incision/area with: Do not get Incision Wet Additional Dressing/Incision Instructions:: ok to change dressing if wet or you want. keep incisions covered. leave tapes on (steri strips) Follow Up Care Please Follow Up With: Brett Quiroga MD When: within 2 weeks Test Results: Test results from this visit will be discussed in further detail at your follow- up appointment, if applicable. Discharge Plan Admission Attending Provider: Brett Quiroga Primary Care Provider: Zeferino Leon Instructions Patient Instructions: After Shoulder Arthroscopy Print Language: Jordanian Discharge Orders/Prescriptions Prescriptions: New oxycodone-acetaminophen [Endocet] 5-325 mg tablet 1 tab PO Q4H MDD 6 PRN (Reason: pain) 4 Days Qty: 20 0RF No Action (DME) blood sugar diagnostic [Blood Glucose Test] Strip See Rx Instructions .ROUTE .MEDSUPPLY Qty: 10 Rx Instructions: As directed ipratropium bromide 0.03 % spray,non-aerosol 2 spray INTRANASAL BID PRN (Reason: allergies) Rx Instructions: administer into each nostril fexofenadine [Allergy Relief (fexofenadine)] 180 mg tablet 180 mg PO DAILY levonorgestrel 17.5 mcg/24 hrs (5 yrs) 19.5 mg intrauterine device 1 device intrauterine ONCE Rx Instructions: as a single dose omeprazole 20 mg capsule,delayed release(DR/EC) 20 mg PO DAILY PRN (Reason: gerd) Patient Comments: Take 1 capsule by mouthndaily before breakfast. 1/2 hr before meal. topiramate 100 mg tablet 100 mg PO BID Patient Comments: Take 1 tablet by mouthitwice daily. gabapentin 300 mg capsule 300 mg PO QHS lisinopril 10 mg tablet 10 mg PO DAILY Patient Comments: Take 1 tablet by mouthEonce daily. ondansetron HCl 4 mg tablet 4 mg PO Q8H PRN (Reason: nausea) Patient Comments: TAKE 1 TABLET BY MOUTHEEVERY 8 HOURS NEEDED FOR NAUSEA OR VOMITING fluoxetine 20 mg capsule 20 mg PO QHS Patient Comments: Take 1 capsule by mouthConce daily. albuterol sulfate 90 mcg/actuation HFA aerosol inhaler 2 puff INHALATION Q4H PRN (Reason: shortness of breath or wheezing) tizanidine 4 mg tablet 4 mg PO Q8H PRN (Reason: Muscle Spasm) Nurtec ODT 75 mg tablet,disintegrating 75 mg PO DAILY PRN (Reason: migraine headache) Ozempic 0.25 mg or 0.5 mg (2 mg/3 mL) pen injector 0.5 mg subcut QWEEK Other Ambulatory Orders: 12 Lead EKG (Routine) Timeframe: [id number] Location: None Selected Ordered By: Dr. Woody Choudhary Referrals / Follow Up: Brett Quiroga MD [Med Staff - Active Staff] - Zeferino Leon MD [Primary Care Provider] - Disposition Disposition (needs filled in before D/C Order can be placed): Home, Self Care
--- NOTE | 2025-06-23 08:57 | PCM.POST.ANE ---
Anesthesia: Postop Eval I Current Vital Signs Temperature: 97.8 F Pulse Rate: 74 Blood Pressure: 114/70 Respiratory Rate: 16 Pulse Ox: 94 Assessment Airway patent: Yes Spontaneous unlabored respirations: Yes nausea: No Vomiting: No Anesthesia Complication: No Fluid Hydration Crystalloid volume administer (ml): 800 Total IV fluid infused: 800 Progress Note Anesthesia document: Postop Eval 1 completed: Yes
--- NOTE | 2025-06-23 08:58 | SUR.PHASEI ---
ice applied to left shoulder
== END 2025-06-23 10:38 | disposition home or self-care (01) ==
LOC: SDC 06:20 → AC 06:20
PROVIDERS: Anesthesiology; PCP Family Medicine; Referring Provider Orthopaedic Surgery Sports Medicine; Visit Provider Orthopaedic Surgery Sports Medicine
PROC: (CPT 29805; principal; 2025-06-23 07:10)
DX: M75.42 Impingement syndrome of left shoulder (principal); Z68.41 Body mass index [BMI] 40.0-44.9, adult; E11.9 Type 2 diabetes mellitus without complications; M75.52 Bursitis of left shoulder; I10 Essential (primary) hypertension; E66.9 Obesity, unspecified; K21.9 Gastro-esophageal reflux disease without esophagitis; F41.9 Anxiety disorder, unspecified; G47.33 Obstructive sleep apnea (adult) (pediatric); G43.909 Migraine, unspecified, not intractable, without status migrainosus; Z79.899 Other long term (current) drug therapy; Z79.85 Long-term (current) use of injectable non-insulin antidiabetic drugs
CPT/HCPCS: 29822; 29826; 01630; 64415; 81025; 82962; 93005; J2405

== ENCOUNTER 2025-07-05 17:32 | Inpatient (IN) | payer OTHER, SELFPAY ==
[2025-07-05] VITALS (15 sets, daily range): BP systolic 83–127; BP diastolic 46–77; PULSE 71–78; RESP 16–27; TEMP 37–37.9; O2SAT 94–100; BMI 45.3; BMI 44.7
--- NOTE | 2025-07-05 17:47 | EKG12_ITS ---
Test Reason : SOB Blood Pressure : */* mmHG Vent. Rate : 75 BPM Atrial Rate : 75 BPM P-R Int : 138 ms QRS Dur : 94 ms QT Int : 384 ms P-R-T Axes : 5 -21 -55 degrees QTcB Int : 428 ms Normal sinus rhythm Low voltage QRS Nonspecific ST and T wave abnormality Abnormal ECG Confirmed by Jackson Keenan ([id number]), website/blog editor PRISCILA FERRERA ([id number]) on 07/06/2025 11:04:28 AM Referred By: Confirmed By: Jackson Keenan
[2025-07-05] MEDS: 0.9% Normal Saline (1000mL) 1,000 ML 1000 ML IV ×2 (17:50→20:58)
[2025-07-05 17:58] LABS: SITE Not entered; VBG BASE EXCESS -10 mmol/L (-1.0-3.5); VBG PO2 77 mmHg (25-40); VBG SO2 94 % (50-70); VBG TCO2 17 mmol/L (23-33)
[2025-07-05 18:09] LABS: Hematocrit 28.2 % (37-47); Hemoglobin 9.5 g/dL (12.0-15.0); Immature Granulocytes Count 0.060 X10^3/uL (0.0-0.0); Mean Corp Hgb Conc 33.7 g/dL (32-36); Mean Corpuscular Volume 95.9 fL (81-99); Mean Platelet Vol. 10.4 fl (6.2-12.0); NRBC Flagged by Analyzer 0 % (0-5); Platelet Count 136 K/mm3 (150-450); RBC Distribution Width CV 13.8 % (11.6-14.6); RBC Distribution Width SD 48.8 fl (35.1-43.9); Red Blood Count 2.94 M/mm3 (4.2-5.4); White Blood Count 6.9 K/mm3 (4.4-11.0)
[2025-07-05 18:12] LABS: Mucous, Urine 0 SEEN /hpf (<or=2+)
[2025-07-05 18:14] LABS: Color, Urine Straw (Yellow); Glucose, Dipstick 1000 mg/dl (Normal); Ketone-Dipstick Negative (Negative); Leukocyte Esterase-Dipstick 100 /ul (Negative); Nitrite-Dipstick Negative (Negative); Occult Blood-Urine 150 /ul (Negative); Protein-Dipstick 30 mg/dl (Negative); Specific Gravity, Urine 1.010 (1.002-1.030); Urine Bilirubin Dipstick Negative (Negative)
[2025-07-05 18:20] LABS: Red Blood Cells-Urine 5-10 SEEN /hpf (0-5); Squamous Epithelial Cells - UA 5-10 SEEN /hpf (5-10)
--- OUTSIDE RECORDS SUMMARY | 2025-07-05 18:20 | XMS RPT_ITS | CCD ---
Author Organization [facility] Care Team Providers Care Paunch Trimmer Name Role Phone Dossi Bibiana BEEBE Unavailable Roya Dixon Unavailable Roya Dixon Unavailable Amparo Hitchcock MD Unavailable [phone] Ivette Grimes MD Primary Care Provider [facility], [place]eti Unavailable Dr. Ivette Grimes Primary Care Provider Dr. Ivette Grimes Referring Provider Dr. Bibiana Rehman Attending Provider [phone] Dr. Munir Siddiqui Attending Provider Dr. Marin Villalpando Attending Provider [phone] Dr. Munir Lucas Attending Provider Dr. Sam Greene Referring Provider Ivette Grimes MD Primary Care Provider [facility] [place], [place]eti Unavailable Dr. Ivette Grimes Primary Care Provider Dr. Ivette Grimes Referring Provider Dr. Bibiana Rehman Attending Provider [phone] Ivette Grimes MD Primary Care Provider Dr. Ivette Grimes Primary Care Provider Dr. Ivette Grimes Referring Provider Dossi, Dr. Mccarty Attending Provider [phone] Dr. Primo Ceron Attending Provider Bray, Dr. Mcgarry Primary Care Provider Sydney, Dr. Mcgarry Referring Provider Dossi, Dr. Mccarty Attending Provider [phone] Cesar, Dr. Churchill Attending Provider Bray, Dr. Mcgarry Primary Care Provider Bray, Dr. Mcgarry Referring Provider Dossi, Dr. Mccarty Attending Provider [phone] Sydney, Dr. Mcgarry Primary Care Provider Bray, Dr. Mcgarry Referring Provider Dossi, Dr. Mccarty Attending Provider [phone] Dr. Primo Ceron Attending Provider Cesar, Dr. Churchill Attending Provider [phone] Bray Ivette SHEARER Primary Care Provider [facility], [place] Unavailable Bray, Dr. Mcgarry Primary Care Provider Bray, Dr. Mcgarry Referring Provider Dossi, Dr. Mccarty Attending Provider [phone] Ernesto SHEARER, Jemal Unavailable Bray, Dr. Mcgarry Primary Care Provider Bray, Dr. Mcgarry Referring Provider Dossi, Dr. Mccarty Attending Provider [phone] Bray, Dr. Mcgarry Primary Care Provider Bray, Dr. Mcgarry Referring Provider Dossi, Dr. Mccarty Attending Provider [phone] Jess MACHINE JOINT CUTTER, FADUMO Ba Attending Provider [phone] Jyoti, Dr. Banuelos Attending Provider [phone] ELLE SANCHEZ Attending Unavailable SAM GREENE Referring Unavailable [facility], IVETTE James Primary Care Unavailable SANCHEZ, ELLE [...] Unavailable SYDNEY, IVETTE James Primary Care Unavailable Bray, Dr. Mcgarry Primary Care Provider Bray, Dr. Mcgarry Referring Provider Dossi, Dr. Mccarty Attending Provider [phone] Bray, Dr. Mcgarry Primary Care Provider Bray, Dr. Mcgarry Referring Provider Dossi, Dr. Mccarty Attending Provider [phone] Sydney, Dr. Mcgarry Primary Care Provider Bray, Dr. Mcgarry Referring Provider Dossi, Dr. Mccarty Attending Provider [phone] Bray, Dr. Mcgarry Primary Care Provider Bray, Dr. Mcgarry Referring Provider Dossi, Dr. Mccarty Attending Provider [phone] Bray, Dr. Mcgarry Primary Care Provider Bray, Dr. Mcgarry Referring Provider Dossi, Dr. Mccarty Attending Provider [phone] Referred, Self Primary Care Provider Unavailabl e Referred, Self Referring Provider Unavailable [facility], [place] Unavailable Dosparam, Dr. Mccarty Attending Provider [phone] Referred, Self Primary Care Provider Unavailabl e Referred, Self Referring Provider Unavailable Bray, Dr. Mcgarry Primary Care Provider Jyoti, Dr. Banuelos Attending Provider Dr. Sosa Mendez Referring Provider Dr. Niurka Kendall Emergency Provider Vanessa, Dr. Sosa Chirinos Admit Provider Korgarland, Dr. Sosa Chirinos Attending Provider Korgarland, Dr. Sosa Chirinos Other Provider Sydney, Dr. Mcgarry Referring Provider Ori, Dr. Mccarty Attending Provider Dossi, Dr. Mccarty Attending Provider Sydney, Dr. Mcgarry Primary Care Provider Dr. Primo Ceron Attending Provider Sydney, Dr. Mcgarry Primary Care Provider Sydney, Dr. Mcgarry Referring Provider Osmany, Dr. Tillman Attending Provider Ivette Grimes MD Primary Care Provider [facility], [place] Unavailable Haagen AIR CONDITIONING UNIT ASSEMBLER.STEP DOWN SPECIALIST, Cindy Unavailable Suppan AIR CONDITIONING UNIT ASSEMBLER.STEP DOWN SPECIALIST, Lubna A Unavailable [phone] Suppan AIR CONDITIONING UNIT ASSEMBLER.STEP DOWN SPECIALIST, Lubna A Unavailable [phone] Suppan AIR CONDITIONING UNIT ASSEMBLER.STEP DOWN SPECIALIST, Lubna A Unavailable Dr. Ivette Grimes MD Primary Care Provider Dr. Sam Pearl MD Attending Provider Dr. Sam Pearl MD Emergency Provider Dr. Ivette Grimes MD Referring Provider Dossi CONCEPCIÓN, Dr. Mccarty Attending Provider Dr. Buddy Hall DO Attending Provider Dr. Buddy Hall DO Emergency Provider Tanya MACHINE JOINT CUTTER-CJenni Attending Provider Tanya MACHINE JOINT CUTTER-CJenni Referring Provider Dr. Ivette Grimes MD Attending Provider Sydney SHEARER, Dr. Mcgarry Primary Care Provider Sydney SHEARER, Dr. Mcgarry Referring Provider Dossi DC, Dr. Mccarty Attending Provider Junaid SHEARER, Brett Attending Provider [phone] Junaid SHEARER, Brett Referring Provider [phone] Sydney SHEARER, Dr. Mcgarry Primary Care Provider [...] ilable Jyoti SHEARER, Dr. Banuelos Attending Provider [phone] JENNI MARTÍNEZ Attending Unavailabl e SYDNEY, IVETTE James Primary Care Unavailable SYDNEY, IVETTE James Primary Care Unavailable SYDNEY, IVETTE James Attending Unavailable SYDNEY, IVETTE James Primary Care Unavailable SYDNEY, IVETTE James Attending Unavailable SYDNEY, IVETTE James Primary Care Unavailable FATUMA BECKFORD Referring Unavailable FATUMA BECKFORD Attending Unavailable SYDNEY, IVETTE James Primary Care Unavailable SYDNEY, IVETTE James Attending Unavailable SYDNEY, IVETTE James Attending Unavailable SYDNEY, IVETTE James Primary Care Unavailable SYDNEY, IVETTE James Attending Unavailable SYDNEY, IVETTE James Primary Care Unavailable AMANDA ARTEAGA Attending Unavailable SYDNEY, IVETTE James Primary Care Unavailable SYDNEY, IVETTE James Primary Care Unavailable SYDNEY, IVETTE James Attending Unavailable SYDNEY, IVETTE James Attending Unavailable SYDNEY, IVETTE James Primary Care Unavailable Junaid SHEARER, Brett Other Provider Sydney, Ivette Referring Unavailable Sydney, Ivette Attending Unavailable Sydney, Ivette Primary Care Unavailable Brett Quiroga Attending Unavailable Brett Quiroga Referring Unavailable Sydney, Ivette Primary Care Unavailable Bray, Ivette Primary Care Unavailable Sydney, Ivette Attending Unavailable Sydney, Ivette Referring Unavailable Buddy Hall Attending Unavailable Bray, Ivette Primary Care Unavailable Sam Pearl Attending Unavailable Sydney, Ivette Primary Care Unavailable Bray, Ivette Referring Unavailable Sydney, Ivette Attending Unavailable Bray, Ivette Primary Care Unavailable Jenni Martínez Attending Unavailable Jenni Martínez Referring Unavailable Bray, Ivette Primary Care Unavailable Mollison, Brett Referring Unavailable Mollison, Brett Attending Unavailable Sydney, Ivette Primary Care Unavailable Dossi, Bibiana Attending Unavailable Sydney, Ivette Referring Unavailable Sydney, Ivette Primary Care Unavailable Dossi, Bibiana Attending Unavailable Sydney, Ivette Primary Care Unavailable Sydney, Ivette Referring Unavailable Sydney, Ivette Primary Care Unavailable Mollison, Brett Attending Unavailable Bray, Ivette Referring Unavailable Dossi, Bibiana Attending Unavailable Bray, Ivette Referring Unavailable Bray, Ivette Primary Care Unavailable Dossi, Bibiana Attending Unavailable Sydney, Ivette Referring Unavailable Sydney, Ivette Primary Care Unavailable Dossi, Bibiana Attending Unavailable Bray, Ivette Referring Unavailable Bray, Ivette Primary Care Unavailable Bray, Ivette Primary Care Unavailable Dossi, Bibiana Attending Unavailable Bray, Ivette Referring Unavailable Bray, Ivette Primary Care Unavailable Dossi, Bibiana Attending Unavailable Bray, Ivette Referring Unavailable Mollison, Brett Referring Unavailable Mollison, Brett Attending Unavailable Sydney, Ivette Primary Care Unavailable Assessment, Health Risk Attending Unavaila ble Assessment, Health Risk Referring Unavaila ble Sydney, Ivette Primary Care Unavailable Sydney, Ivette Primary Care Unavailable Junaid, Brett Referring Unavailable Junaid, Brett Consulting Unavailable Junaid, Brett Attending Unavailable Jesenia Mercado NP Attending Unavailable Bray, Ivette Referring Unavailable Sydney, Ivette Primary Care Unavailable Dossi, Bibiana Attending Unavailable Sydney, Ivette Referring Unavailable Sydney, Ivette Primary Care Unavailable Dossi, Bibiana Attending Unavailable Bray, Ivette Referring Unavailable Sydney, Ivette Primary Care Unavailable Sydney, Ivette Attending Unavailable Bray, Ivette Referring Unavailable Bray, Ivette Primary Care Unavailable Dossi, Bibiana Attending Unavailable Sydney, Ivette Referring Unavailable Sydney, Ivette Primary Care Unavailable Bray, Ivette Primary Care Unavailable Bray, Ivette Attending Unavailable Sydney, Ivette Referring Unavailable Dossi, Bibiana Attending Unavailable Sydney, Ivette Referring Unavailable Sydney, Ivette Primary Care Unavailable Dossi, Bibiana Attending Unavailable Bray, Ivette Referring Unavailable Bray, Ivette Primary Care Unavailable Dossi, Bibiana Attending Unavailable Bray, Ivette Referring Unavailable Bray, Ivette Primary Care Unavailable Mollison, Brett Attending Unavailable Sydney, Ivette Referring Unavailable Sydney, Ivette Primary Care Unavailable Bibiana Rehman Attending Unavailable SydneyIvette barry Referring Unavailable Sydney Ivette Primary Care Unavailable Bibiana Rehman Attending Unavailable Ivette Grimes Referring Unavailable BrayIvette barry Primary Care Unavailable Brett Quiroga Attending Unavailable Ivette Grimes Referring Unavailable Bray, Ivette Primary Care Unavailable Brett Quiroga Referring Unavailable Vin Montes Attending Unavailable Sydney Ivette Primary Care Unavailable Allergies Allergy Classification Reported Allergen(s) Allergy Type Date of Onset Reaction(s) Facility (20 sources) Betamethasone; Translations: [BETAMETHASONE DIPROPIONATE] Drug Allergy 12-21-19 [facility] Work Phone: (20 sources) Lidocaine; Translations: [LIDOCAINE] Drug Allergy 12-24-19 [facility] Work Phone: (7 sources) Corticosteroids Allergy to substance 01-01-20 [facility] Work Phone: (20 sources) Glucocorticoid Receptor Agonists Allergy to substance 10-16-20 [facility] (20 sources) dapagliflozin; Translations: [DAPAGLIFLOZIN] Drug Allergy 08-05-20 [facility] (20 sources) metFORMIN; Translations: [METFORMIN] Drug Allergy 08-05-20 [facility] (1 source) Corticosteroids Drug allergy (disorder) 06-25-20 [facility] (1 source) Lidocaine Drug Allergy 06-25-20 [facility] Medications Current Medications Medication Drug Class(es) Dates Sig (Normalized) Sig (Original) acetaminophen 325 mg / oxyCODONE hydrochloride 5 mg oral tablet (20 sources) Opioid Agonist Start: 06-23-2025 take 1 tablet by mouth every four hours as needed for pain Oxycodone-Acetamin ophen (Endocet) 5-325 mg tablet Active 1 {tbl} PO Q4H as needed for pain 20 4 0 June 23, 2025 Impingement of left shoulder Other specified joint disorders, left shoulder Start: 02-25-2019 End: 03-04-2019 Oxycodone-Acetaminophen 1 TA BLET tablet Discontinued 1 - 2 {tbl} PO [...] 12:10am Calculus of kidney Calculus of kidney [id number] actuat albuterol 0.09 mg/actuat metered dose inhaler (20 sources) beta2-Adrenergic Agonist Start: 08-10-2022 Albut claribel Sulfate 90 mcg/actuation HFA aerosol inhaler Active [...] 1 tablet by mouth once daily Fexofenadine (Allergy Relief (Fexofenadine)) 180 mg tablet Active 180 mg PO DAILY August 10, 2022 12:00am allergies Start: 04-26-2020 End: 08-23-2020 take 1 tablet by mouth once daily Fexofenadine 180 mg tablet Discontinued 180 mg PO DAILY April 26, 2020 12:00am August 23, 2020 10:23am Comment on above: Take 1 tablet by [facility] once daily. FLUoxetine 20 mg oral capsule (20 sources) Serotonin Reuptake Inhibitor Start: 11-16-2022 End: 06-07-2026 take 1 capsule by mouth at bedtime Fluoxetine 20 mg capsule Active 20 mg PO AT BEDTIME December 28, 2022 1:00am mental health Start: 10-12-2022 End: 11-18-2022 take 1 capsule by mouth once daily, then take 2 capsules by mouth once daily FLUoxetine (PROZAC) 10 mg capsule Take 1 capsule by mouth once daily for 7 days, THEN 2 capsules once daily. 67 capsule 1 10/12/2022 11/18/2022 Active Comment on above: Take 1 capsule by [facility] once daily for 7 days, THEN 2 capsules once daily. Take 1 capsule by [facility] once daily. gabapentin 300 mg oral capsule (20 sources) Anti-epileptic Agent Start: 12-28-2022 End: 12-04-2025 take 1 capsule by mouth at bedtime Gabapentin 300 mg capsule Active 300 mg PO AT BEDTIME December 28, 2022 1:00am nerve pain Start: 12-28-2022 End: 07-21-2025 take 1 capsule [...] 3:46pm Start: 05-22-2017 take 1 capsule by [facility] three times daily GABAPENTIN 300 MG CAPS 1 po tid GABAPENTIN [id number] Jackson Brown Comment on above: Take 2 capsules by m [facility] twice daily for 90 days. Take 1 tablet in AM, afternoon and bedtime. If after 2 days symptoms persist, increase to 1 tab in AM, afternoon and 2 tabs at bedtime. Take one po qhs Take 1 capsule by mo [facility] twice daily for 180 days. Take one po qhs ipratropium bromide 0.021 mg/actuat metered dose nasal spray (20 sources) Anticholinergic Start: 05-02-2023 Ipratropium [place] (ATROVENT) 21 mcg (0.03 %) nasal spray Use 2 Sprays in the nose every 12 hours. 30 mL 5 05/02/2023 Active Start: 08-23-2020 Ipratropium Br omide 0.03 % spray,non-aerosol Active 2 NMA INTRANASAL TWICE A DAY as needed for allergies August 23, 2020 12:00am administer into each nostril Start: 08-23-2020 take 1 spray(s) nasa l route twice daily Ipratropium [place] Active 2 SPRAY INTRANASAL TWICE A DAY August 23, 2020 12:00am administer into each nostril Start: 03-14-2020 End: 05-01-2023 Ipratropium [place] (ATROVEN T) 0.03 % nasal spray Use [...] the CT contrast administration guidelines link. levonorgestrel 0.969830 mg/hr intrauterine system (20 sources) Progestin, Progestin-containing Intrauterine Device Start: 2021 Levonorgestrel Active 1 DEVICE INTRA-UTER ONCE August 10, 2022 12:00am as a single dose Start: 04-18-2021 End: 04-17-2026 Levonorgestrel 17.5 mcg/24 h rs (5 yrs) 19.5 mg intrauterine device Active 1 NMA INTRA-UTER ONCE August 10, 2022 12:00am control as a single dose Start: 04-26-2020 End: [...] Start: 09-09-2017 JOJO 13.5 MG IUD LEVONORGESTREL [id number] Amparo Hitchcock MD Comment on above: 1 Each by INTRAUTERI NE route as directed. lisinopril 10 mg oral tablet (20 sources) Angiotensin Converting Enzyme Inhibitor Start: 3 End: 3 take 1 tablet by mouth once daily [...] 2021 4:26pm must administer with a meal/food Valentine-3 Fatty Acids (Fish Oil Concentrate) 1,000 mg capsule (20 sources) Start: 02-21-2021 take 1 capsule by mouth once daily Valentine-3 Fatty Acids (Fish Oil Concentrate) 1,000 mg capsule Active 1000 MG PO DAILY February 21, 2021 9:19am Start: 02-21-2021 End: 10-16-2024 take 1 capsule by mouth once daily Valentine-3 Fatty Acids (Fish Oil Concentrate) 1,000 mg capsule Discontinued 1000 mg PO DAILY February 21, 2021 12:00am October 16, 2024 10:15pm supplement Start: 02-21-2021 End: 10-16-2024 take 1 capsule by mouth once daily Valentine-3 Fatty Acids (Fish Oil Concentrate) 1,000 mg capsule Discontinued 1000 mg PO DAILY February 21, 2021 12:00am October 16, 2024 10:15pm Start: 02-21-2021 take 1 capsule by mo [facility] once daily Valentine-3 Fatty Acids (Fish Oil Concentrate) 1,000 mg capsule Active 1000 MG PO DAILY February 20, 2021 11:00pm Start: 02-21-2021 take 1 capsule by mo [facility] once daily Valentine-3 Fatty Acids (Fish Oil Concentrate) 1,000 mg capsule Active 1000 MG PO DAILY February 21, 2021 12:00am ondansetron 4 mg oral tablet (20 sources) Serotonin-3 Receptor Antagonist Start: 11-30-2022 End: 06-16-2025 take 1 tablet by mouth every eight [...] every 8 hours as needed for nausea/vomiting. Nmalymsm-Dq-Eys-Fe -FA tab (20 sources) Start: 1 take 1 tablet by mouth once daily Nggypujy-Ht-Cvi-F e-FA tab Take 1 tablet by mouth once daily. 0 03/14/2011 Active Comment on above: Take 1 tablet by ishmael th once daily. oztnzarb-eie-Ko-FA 1 mg capsule (20 sources) Start: take 1 capsule by mouth once daily dmtvnyvv-rpl-Zv-F A 1 mg capsule Active 1 CAP PO DAILY April 26, 2020 10:18am Start: 04-26-2020 End: 08-05-2023 take 1 capsule by mouth once daily uxpssqhk-wml-Xd-FA 1 mg capsule Discontinued 1 CAP PO DAILY April 25, 2020 11:00pm August 05, 2023 10:25am Start: 04-26-2020 End: 08-05-2023 take 1 capsule by mouth once daily nnubtpug-btw-Zd-FA 1 mg capsule Discontinued 1 CAP PO DAILY April 26, 2020 12:00am August 05, 2023 11:25am Start: 04-26-2020 take 1 capsule by mo [facility] once daily jqpfamds-mot-Gs-FA 1 mg capsule Active 1 CAP PO DAILY April 25, 2020 11:00pm Start: 04-26-2020 take 1 capsule by mo [facility] once daily pfnfzphp-zzy-Fd-FA 1 mg capsule Active 1 CAP PO DAILY April 26, 2020 12:00am rimegepant 75 mg disintegrating oral tablet (20 sources) Start: 12-26-2023 End: 09-02-2024 take 1 tablet by mouth once daily as needed for headache Rimegepant (Rimegepant 75 Mg Disintegrating Tablet) 75 mg tablet,disintegrating Active 75 mg PO DAILY as needed for migraine headache February 04, 2024 12:00am Comment on above: [facility]. Semaglutide (13 sources) Start: 10-16-2024 Semaglutide (Ozempic) 0.25 mg [...] long-term current use of insulin ([facility]) Inject 2 mg subcutaneously one time a week. 3 mL 5 06/09/2025 12/06/2025 Active tiZANidine 4 mg oral tablet (20 sources) Central alpha-2 Adrenergic Agonist Start: 08-10-2022 End: 08-06-2025 take 1 tablet by mouth every eight hours as needed for muscle spasms Tizanidine 4 mg tablet Active 4 mg PO Q8H as needed for Muscle Spasm August 10, 2022 2:59pm Start: 08-01-2022 take 1 tablet by ishmael [...] as needed for muscle spasms TIZANIDINE HCL [id number] Sammy Victor [employer]OCK[employer] REPA[employer]ER-C Start: 04-29-2017 End: 08-10-2022 take 1 tablet by mouth once daily as needed for muscle spasms Tizanidine 4 MG tablet Discontinued 4 mg PO DAILY NEEDED as needed for Muscle Spasm April 29, 2017 12:00am August 10, 2022 3:09pm Start: 04-26-2017 End: 05-06-2017 ZANAFLEX 2 MG CAPS Take 1-2 tablets every 8 hours as needed. TIZANIDINE HCL [id number] Santana IRENE Comment on above: Take 1 tablet by ishmael th every 8 hours as needed. topiramate 100 mg oral tablet (20 sources) Anti-epileptic Agent Start: 07-03-2022 End: 06-23-2025 take 1 tablet by mouth twice daily Topiramate 100 mg tablet Active 100 mg PO TWICE A DAY August 16, 2022 12:00am seizures Start: 04-09-2022 End: 07-03-2022 topiramate (TOPAMAX) 50 [...] Start: 09-09-2017 TROKENDI XR 20 0 MG AM39R-THL TOPIRAMATE [id number] Amparo Hitchcock MD Start: 09-28-2016 End: 09-09-2017 TOPIRAMATE 15 MG CPSP 11/28 TOPIRAMATE [id number] Santana IRENE Comment on above: Take 1 tablet by ishmael th twice daily. Take 1 tab in AM and 2 tabs in PM. One tab daily Take 1 tablet by ishmael th two times a day. Completed/Discontinued Medications Medication Drug Class(es) Dates Sig (Normalized) Sig (Original) ACETAMINOPHEN CAPS (5 sources) Start: 09-28-2016 End: 09-09-2017 TYLENOL CAPS ACETAMINOPHEN CAPS [id number] Amparo Hitchcock MD Start: 09-28-2016 TYLENOL CAPS 2 ACETAMINOPHEN CAPS [id number] Santana IRENE acetaminophen 325 mg / HYDROcodone bitartrate 5 mg oral tablet (20 sources) Opioid Agonist Start: 05-06-2019 End: 05-10-2019 Hydrocodone-Acetaminophen 1 TABLET tablet Discontinued 1 {tbl} PO EVERY 4 HOURS NEEDED as needed for Pain 10 2 May 06, 2019 May 07, 2019 12:00am May 10, 2019 12:09am Flank pain Unspecified abdominal pain Start: 05-06-2019 End: 05-10-2019 take 1 tablet by mouth every four hours as needed Hydrocodone-Acetaminophen Discontinued 1 TABLET PO EVERY 4 HOURS NEEDED 10 May 06, 2019 May 10, 2019 12:09am Start: 05-10-2017 End: 05-14-2017 NORCO 5-325 MG TABS Take one every 6 hours as needed. HYDROCODONE-ACETAMINOPHEN [id number] Santana IRENE amitriptyline hydrochloride 25 mg oral tablet (20 [...] End: 09-09-2017 DIFLUNISAL 500 MG TABS DIFLUNISAL [id number] Raghav IRENE 0.5 ml dulaglutide 1.5 mg/ml [...] Start: 09-28-2016 LORAZEPAM 1 MG TABS LORAZEPAM [id number] Santana IRENE Start: 10-27-2013 End: 04-26-2020 take [...] Discontinued 0 PO per package directions 21 August 07, 2021 12:00am September 13, 2021 [...] a month. ofloxacin 3 mg/ml otic solution (18 sources) Quinolone Antimicrobial Start: 10-27-2023 End: 12-10-2023 [...] both ears once daily for 7 days. Valentine-3 Fatty Acids (20 sources) Start: 04-26-2020 End: 08-23-2020 take 500 mg by mouth once daily Valentine-3 Fatty Acids Discontinued 500 MG PO DAILY April 26, 2020 10:19am August 23, 2020 10:22am Start: 04-26-2020 End: 08-23-2020 take 500 mg by mouth once daily Valentine-3 Fatty Acids Discontinued 500 MG PO DAILY April 25, 2020 11:00pm August 23, 2020 9:22am Start: 04-26-2020 End: 08-23-2020 take 500 mg by mouth once daily Valentine-3 Fatty Acids Discontinued 500 MG PO DAILY April 26, 2020 12:00am August 23, 2020 10:22am Valentine-3 Fatty Acids (FISH OIL) 500 mg cap (20 sources) Start: 10-09-2019 End: 06-07-2025 take 1 capsule by mouth once daily Valentine-3 Fatty Acids (FISH OIL) 500 mg cap Take 1 capsule by mouth once daily. 30 capsule 11 10/09/2019 06/07/2025 Discontinued Start: 10-09-2019 take 1 capsule by [facility] once daily Valentine-3 Fatty Acids (FISH OIL) 500 mg cap Take 1 capsule by mouth once daily. 30 capsule 11 10/09/2019 Active Comment on above: Take 1 capsule by mo [facility] once daily. Valentine-3 Fatty Acids 500 mg capsule (13 sources) Start: 0 End: 0 take 1 capsule by mouth once daily Valentine-3 Fatty Acids 500 mg capsule Discontinued 500 mg PO DAILY April 26, 2020 12:00am August 23, 2020 10:22am omeprazole 20 mg delayed release oral capsule (20 sources) Proton Pump Inhibitor Start: 2 End: 5 take 1 capsule by mouth once daily Omeprazole 20 mg capsule,delayed release(DR/EC) Discontinued 20 mg PO DAILY August 10, 2022 12:00am August 16, 2022 1:05pm Start: 04-26-2020 End: 08-10-2022 take 1 tablet by mouth once daily Omeprazole Magnesium (Prilosec Otc) 20 mg tablet,delayed release (DR/EC) Discontinued 20 mg PO DAILY April 26, 2020 12:00am August 10, 2022 3:03pm Comment on above: Take 1 capsule by [facility] daily before breakfast. 1/2 hr before meal. PARoxetine hydrochloride 10 mg oral tablet (20 [...] One tablet by mouth daily PHENTERMINE HCL [id number] Amparo Hitchcock MD potassium chloride 20 meq powder for oral solution (20 sources) Start: End: take 20 mEq by mouth twice daily Potassium Chloride 20 mEq packet Discontinued 20 meq PO TWICE A DAY 30 7 0 November 11, 2024 1:00am June 10, 2025 9:06am predniSONE 50 mg oral tablet (5 sources) Corticosteroid Start: End: PREDNISONE 50 MG TABS 1 tablet every morning PREDNISONE [id number] Raghav IRENE pregabalin 75 mg oral capsule [...] on pill 3 times per day thereafter Cbfiphwd-Se-Oic-Fe-FA ( FORMULA) ORAL Tab (20 sources) Start: take 1 tablet by mouth once daily Qvqflsiy-Iw-Dfz-Fe-FA ( FORMULA) ORAL Tab Take 1 tablet by mouth once daily. 0 03/14/2011 Active Comment on above: Take 1 tablet by ishmael th once daily. Cbimxeog-Cto-Or-Fa 1 mg capsule (13 sources) Start: End: take 1 capsule by mouth once daily Bfrusstd-Ltv-Fe-Fa 1 mg capsule Discontinued 1 NMA PO [...] sources) Serotonin-1b and Serotonin-1d Receptor Agonist Start: 023 End: take 1 tablet by mouth once [...] long-term current use of insulin ([facility]) Inject 0.25 mg subcutaneously one time a week. 3 mL 2 08/05/2024 02/01/2025 Active semaglutide (OZEMPIC) 1 mg/dose (4 mg/3 mL) pen (14 sources) Start: 01-22-2025 End: 06-09-2025 inject 1 mg by subcutaneous injection every week semaglutide (OZEMPIC) 1 mg/dose (4 mg/3 mL) pen Indications: Type 2 diabetes mellitus with microalbuminuria, with long-term current use of insulin ([facility]) Inject 1 mg subcutaneously one time a week. 3 mL 5 01/22/2025 06/09/2025 Discontinued Start: 01-22-2025 End: 07-21-2025 inject 1 mg by subcutaneous injection every week semaglutide (OZEMPIC) 1 mg/dose (4 mg/3 mL) pen Indications: Type 2 diabetes mellitus with microalbuminuria, with long-term current use of insulin ([facility]) Inject 1 mg subcutaneously one time a [...] sources) Antifibrinolytic Agent Start: 02-22-20 End: 01-01-20 22 take 1 tablet by [...] 14 06-07-2014 Chronic Blindness and vision defects (14 sources) Subjective visual disturbance; Translations: [Unspecified subjective visual disturbances] 02-04-2024 Episodic Calculus of urinary tract (20 sources) Kidney stone; Translations: [Calculus of kidney] Onset: 09-04-20 22 09-04-2022 Episodic Conditions associated with dizziness or vertigo (20 sources) Lightheadedness; Translations: [Dizziness and giddiness] Onset: 09-14-20 Episodic Delirium, dementia, and amnestic and other [...] and hypertriglyceridemia; Translations: [Mixed hyperlipidemia] 12-30-2019 Chronic E Codes: Fall (20 sources) Fall; Translations: [Unspecified fall, initial encounter] Onset: 09-04-20 Resolved : 09-04-2005-06-2020 Episodic Essential hypertension (20 sources) Hypertensive disorder; Translations: [...] Resolved : 09-04-20 Episodic Headache; including migraine (2 sources) Headache; including migraine; Translations: [Headache, unspecified headache type] Onset: 12-04-19 Immunizations and screening for infectious [...] Translations: [Major depressive disorder, recurrent, moderate] Chronic Nausea and vomiting (20 sources) Nausea, vomiting and diarrhea; Translations: [Nausea with vomiting, unspecified] Onset: 11-22-19 Resolved : 09-04-2009-25-2019 Episodic Nonspecific chest pain (20 sources) Chest pain; Translations: [Chest pain, unspecified] Onset: 09-04-20 Resolved : 09-04-2003-24-2020 Episodic Osteoarthritis (5 sources) Osteoarthritis of joint of left shoulder region; Translations: [Primary osteoarthritis, left shoulder] Onset: 03-29-20 Chronic Other bone disease and musculoskeletal deformities (20 sources) Segmental and somatic dysfunction; Translations: [Segmental and somatic dysfunction of cervical region] Onset: 04-17-20 Resolved : 09-04-2008-21-2022 Episodic Other bone disease and musculoskeletal deformities (20 sources) Pain of left shoulder blade; Translations: [Other specified disorders of bone, shoulder] Onset: 09-04-20 Resolved : 09-04-2008-10-2022 Episodic Other bone disease and musculoskeletal deformities [...] left arm] Episodic Other connective tissue disease (20 sources) Muscle pain; Translations: [Myalgia, unspecified site] Onset: 09-04-20 Resolved : 09-04-2003-07-2022 Episodic Other connective tissue disease (1 source) [...] Episodic Other ear and sense organ disorders (16 sources) Otitis externa; Translations: [Unspecified otitis externa, unspecified ear] 10-27-2023 Chronic Other gastrointestinal disorders (20 sources) Acute diarrhea; Translations: [Diarrhea, unspecified] 12-31-2019 Episodic Other injuries and conditions due to external causes (20 sources) Closed injury of head; Translations: [Unspecified injury of head, initial encounter] Onset: 11-27-19 Resolved : 12-09-1911-24-2022 Episodic Other injuries and conditions due to external causes (2 sources) Injury of neck; Translations: [Unspecified injury of neck, subsequent encounter] Episodic Other liver diseases (20 sources) Steatosis of liver; Translations: [Fatty (change of) liver, not elsewhere classified] Onset: 07-21-20 Resolved : 08-05-2008-17-2020 Chronic Other liver diseases (20 sources) Non-alcoholic [...] insufficiency 07-23-2022 Episodic Other lower respiratory disease (20 sources) Dyspnea; Translations: [Dyspnea, unspecified] Onset: 09-04-20 Resolved : 09-04-20 Episodic Other lower respiratory disease (1 source) [...] organs] 08-10-2022 Episodic Other nervous system disorders (20 sources) Numbness of upper limb; Translations: [Anesthesia of skin] Onset: 10-10-20 Resolved : 09-04-2008-10-2022 Episodic Other nervous system disorders (1 source) H/O: migraine; Translations: [Personal history of other diseases of the nervous system and sense organs] Episodic Other nervous system disorders (20 sources) Paresthesia; Translations: [Paresthesia of skin] Onset: 01-18-20 Resolved : 12-09-1901-17-2023 Episodic Other nervous system disorders (17 sources) Facial paresthesia; Translations: [Paresthesia of skin] 08-09-2023 Episodic Other nervous system disorders (17 sources) Paresthesia of left lower limb; Translations: [Paresthesia of skin] 08-09-2023 Episodic Other nervous system disorders (17 sources) Paresthesia of left upper limb; Translations: [Paresthesia of skin] 08-09-2023 Episodic Other nervous system disorders (6 sources) Paresthesia of skin; Translations: [Disturbance of skin sensation] 08-07-2023 Episodic Other non-traumatic joint disorders (20 sources) Pain in left shoulder; Translations: [Left shoulder pain] Onset: 01-03-2008-10-2022 Episodic Other non-traumatic joint disorders (5 sources) Disorder of shoulder; Translations: [Other specified joint disorders, left shoulder] 06-23-2025 Episodic Other non-traumatic joint disorders (1 source) Other specified joint disorders, left shoulder; Translations: [Other specified joint disorders, left shoulder] Onset: 06-25-20 Episodic Other nutritional; endocrine; and metabolic disorders [...] sinusitis, unspecified] Onset: 12-11-19 25 12-11-2024 Chronic Other upper respiratory infections (20 sources) Upper respiratory infection; Translations: [Acute upper respiratory infection, unspecified] Onset: 09-04-20 Resolved : 09-04-2002-04-2024 Episodic Residual codes; unclassified (20 sources) Obstructive sleep [...] disc] Onset: 05-06-20 Resolved : 01-24-2006-24-2017 Chronic Spondylosis; intervertebral disc disorders; other back problems (20 sources) Low back pain; Translations: [Backache] Onset: 04-26-20 Resolved : 09-04-2004-26-2017 Episodic Sprains and strains (20 sources) Strain of muscle, fascia and tendon of lower back, subsequent encounter; Translations: [Strain of muscle, fascia and tendon of lower back, initial encounter] Onset: 07-02-20 Resolved : 09-04-2008-06-2017 Episodic Superficial injury; contusion (20 sources) Contusion of knee; Translations: [Contusion of right knee, initial encounter] Onset: 09-04-20 Resolved : 09-04-2011-24-2022 Episodic Syncope (20 sources) Near syncope; Translations: [Syncope and collapse] 03-01-2019 Episodic Unclassified (20 sources) Body mass index 40+ - severely obese; Translations: [Morbid (severe) obesity due to excess calories] Onset: 09-09-20 Resolved : 09-04-2009-09-2017 Chronic Unclassified (2 sources) Chronic pain of left upper limb 01-22-2025 Unclassified (1 source) Obesity, Class III, BMI 40-49.9 (morbid obesity) ([facility]); Translations: [Obesity, Class III, BMI 40-49.9 (morbid obesity) ([facility])] Onset: 01-03-20 Unclassified (1 source) Low back pain, unspecified; Translations: [Low back pain, unspecified] Onset: 03-22-20 Unclassified (1 source) Cough, unspecified; Translations: [Cough, unspecified] Onset: 08-13-20 Urinary tract infections (20 sources) Urinary tract infectious disease; Translations: [Urinary tract infection, site not specified] 08-10-2022 Episodic Viral infection (20 sources) Viral disease; Translations: [Viral infection, unspecified] Onset: 09-04-20 Resolved : 09-04-2007-12-2020 Episodic Past or Other Problems Problem Classification Problem Date Documented Date Episodic/Chronic Allergic reactions (20 sources) Contact dermatitis; Translations: [Unspecified contact dermatitis, unspecified cause] Onset: 03-26-2007 Resolved: 01-23-2010 01-23-2010 Episodic Chronic obstructive pulmonary disease and bronchiectasis (4 sources) Bronchitis; Translations: [Bronchitis, not specified as acute or chronic] Onset: 07-03-2024 07-03-2024 Episodic Contraceptive and procreative management (20 sources) IUD contraception; Translations: [Presence of (intrauterine) contraceptive device] Onset: 09-09-2017 09-09-2017 Episodic Hypertension complicating ; childbirth and the puerperium (20 sources) Transient hypertension of ; Translations: [Gestational [-induced] hypertension without significant proteinuria, unspecified trimester] Onset: 06-19-2006 Resolved: 07-02-2006 07-02-2006 Episodic Other aftercare (1 source) [facility]PC (current) use of insulin; Translations: [Type 2 diabetes mellitus with microalbuminuria, with long-term current use of insulin (HCC)] Onset: 10-09-2019 Episodic Other and unspecified benign neoplasm (20 sources) Benign neoplasm of skin of upper limb; Translations: [Other benign neoplasm of skin of unspecified upper limb, including shoulder] Onset: 03-26-2007 Resolved: 01-23-2010 01-23-2010 Episodic Other congenital anomalies (20 sources) Congenital anomaly of skin; Translations: [Other specified congenital malformations of skin] Onset: 03-26-2007 Resolved: 01-23-2010 01-23-2010 Chronic Other connective tissue disease (20 sources) Adhesive capsulitis of left shoulder; Translations: [Adhesive capsulitis of left shoulder] Onset: 01-02-2023 Episodic Other connective tissue disease (1 source) [...] head, initial encounter] Onset: 11-18-2024 Episodic Other lower respiratory disease (1 source) Wheezing; Translations: [Wheezing] Onset: 07-03-2024 Episodic Other non-traumatic joint disorders (20 sources) [...] abnormalities] Onset: 03-26-2007 Resolved: 01-23-2010 01-23-2010 Episodic Unclassified (20 sources) Left upper quadrant abdominal pain 08-10-2022 Unclassified (20 sources) History of stent into kidney 05-30-2022 Comment on above: 2019 Unclassified (2 sources) Patient encounter status 12-12-2024 Results Test Name Value Interpretation Reference Range Facility Orthopedic Visit Reporton Orthopedic Visit Report [facility] [address] [place] [address] [address] [place] [address] OFFICE VISIT Date of Service: 06/25/25 MR#: [id number] Acct: [id number] Name: TORI GRAY Rep #: [id number] : 1980 Provider: Dr. Brett kessler MD Age/Sex: 45/F [place] [facility] Status: Signed Intake Vital Signs 05/06/25 10:04 06/23/25 06:40 Height 5 ft 7 in 5 ft 7 in Intake Visit Reasons: left shoulder Chief Complaint: Left Shoulder 2 Day Post-Op Is patient in pain?: Yes Pain scale (1-10): 7 Allergies Corticosteroids (Glucocorticoids) (steroids) Allergy (Verified 06/25/25 09:20) Hives lidocaine Adverse Reaction (Intermediate, Verified 06/25/25 09:20) Hives Medications ???Medication ???Instructions ???Recorded ???Confirmed ???Type blood sugar diagnostic (Blood #10 ea 04/26/20 06/25/25 History Glucose Test strips) ipratropium bromide 21 mcg (0.03 2 spray intranasal BID PRN 0 06/25/25 History %) nasal spray allergies albuterol sulfate 90 mcg/actuation 2 puff inhalation Q4H PRN 06/25/25 History aerosol inhaler shortness of breath or wheezing fexofenadine 180 mg tablet 180 mg PO DAILY allergies 08/10/22 06/25/25 History (Allergy Relief (fexofenadine)) levonorgestrel 17.5 mcg/24 hr (up 1 device intrauterine ONCE 08/10/22 06/25/25 History to 5 yrs) 19.5mg intrauterine control device tizanidine 4 mg tablet 4 mg PO Q8H PRN Muscle Spasm 08/1006/25/25 History omeprazole 20 mg capsule,delayed 20 mg PO DAILY PRN gerd 08/16/22 0 06/25/25 History release topiramate 100 mg tablet 100 mg PO BID seizures 08/16/22 History fluoxetine 20 mg capsule 20 mg PO QHS mental health 3 06/25/25 History gabapentin 300 mg capsule 300 mg PO QHS nerve pain 12/28/22 06/25/25 History lisinopril 10 mg tablet 10 mg PO DAILY blood pressure 12/0606/25/25 History ondansetron HCl 4 mg tablet 4 mg PO Q8H PRN nausea 12/28/22 History rimegepant 75 mg disintegrating 75 mg PO DAILY PRN migraine 06/25/25 History tablet (Nurtec ODT) headache semaglutide 0.25 mg or 0.5 mg (2 0.5 mg subcut QWEEK 10/16/2406/25 History mg/3 mL) subcutaneous pen injector (Ozempic) oxycodone-acetamino phen 5 mg-325 1 tab PO Q4H PRN pain 4 days #20 0 06/23/25 06/25/25 Rx mg tablet (Endocet) tabs PFSH Medical History (Updated 06/23/25 @ 08:31 by Brett Quiroga MD) Impingement of left shoulder Diabetes Fatty liver Gastric reflux BiPAP (biphasic [...] you feel safe at home: Yes HPI (more content not included)... Normal [facility] Bedside Glucoseon 06-23-2025 FINGERSTICK GLU 210 mg/dL High 74-106 [facility] Comment on above: Result Comment: [place] OF PATIENT CARE PER NURSING PROTOCOL Performed By: #### L 501.080 #### [facility] [address] [facility] [place], [address] Discharge Instructionon 06-05 Discharge Instruction [facility] Medical Records Department [address] [place] [address] Instructions for Home/Discharge Instructions 06/23/25 0836 MR#: [id number] Acct: [id number] Name: TORI GRAY Rep #: [id number] : 1980 45 From: Brett Quiroga MD PCP: Dr. Ivette Grimes MD Status:[facility] Discharge Instructions Diet Discharge Diet: No restrictions Activity May shower in (days): 1 Ice area for (Minutes): 10 Lifting Restrictions: no lifting over 1 pound Additional Activity Instructions:: pendulums 4x/day, ok for hand wrist elbow rom, ok to take breaks from sling. Dressing / Incision Call your doctor if your incision/area has: Continuous Slow Oozing, Sudden Increased Bleeding, Increased Pain/ Swelling, Increased Redness, Foul Smelling Discharge and Swelling at the incision site Call your doctor if you observe: Fever of 101 or Higher, Coldness, Increased Pain and Numbness or Tingling Change Dressing in: leave in place till F/U Cleanse incision/area with: Do not get Incision Wet Additional Dressing/Incision Instructions:: ok to change dressing if wet or you want. keep incisions covered. leave tapes on (steri strips) Follow Up Care Please Follow Up With: Brett Quiroga MD When: within 2 weeks Test Results: Test results from this visit will be discussed in further detail at your follow-up appointment, if applicable. Discharge Plan Admission Attending Provider: Brett Quiroga Primary Care Provider: Ivette Grimes Instructions Patient Instructions: After Shoulder Arthroscopy Print Language: Czech Discharge Orders/Prescription s Prescriptions: New oxycodone-acetamino phen [Endocet] 5-325 mg tablet 1 tab PO Q4H MDD 6 PRN (Reason: pain) 4 Days Qty: 20 0RF No Action (DME) blood sugar diagnostic [Blood Glucose Test] Strip See Rx Instructions .ROUTE .MEDSUPPLY Qty: 10 Rx Instructions: As directed ipratropium bromide 0.03 % spray,non-aerosol 2 spray INTRANASAL BID PRN (Reason: allergies) Rx Instructions: administer into each nostril fexofenadine [Allergy Relief (fexofenadine)] 180 mg tablet [...] 300 mg capsule 300 mg PO QHS lisinopril 10 mg tablet 10 mg PO DAILY Patient Comments: Take 1 tablet by mouthEonce daily. ondansetron HCl 4 mg tablet 4 mg PO Q8H PRN (Reason: nausea) Patient Comments: TAKE 1 TABLET BY MOUTHEEVERY 8 HOURS NEEDED FOR NAUSEA OR VOMITING fluoxetine 20 mg capsule 20 mg PO QHS Patient Comments: Take 1 capsule by mouthConce daily. albuterol sulfate 90 mcg/actuation HFA aerosol inhaler 2 puff INHALATION Q4H PRN (Reason: shortness of breath or wheezing) tizanidine 4 mg tablet 4 mg PO Q8H PRN (Reason: Muscle Spasm) Nurtec ODT 75 mg tablet,disintegrati ng 75 mg PO DAILY PRN (Reason: migraine headache) Ozempic 0.25 mg or 0.5 mg (2 mg/3 mL) pen injector 0.5 mg subcut QWEEK Other Ambulatory Orders: 12 Lead EKG (Routine) Timeframe: 20250610 Location: None Selected Ordered By: Dr. Woody Choudhary Referrals / Follow Up: Brett Quiroga MD [Med Staff - Active Staff] - Ivette Grimes MD [Primary Care Provider] - Disposition Disposition (needs filled in before D/C Order can be placed): Home, Self Care 06/23/25838 Brett Quiroga MD CC: Dr. Ivette Grimes MD Signed Normal [facility] deOrdered By: Brett Quiroga on 06-23-2025 Glucose [Mass/Vol] 210 mg/dL High 74-106 [facility] Comment on above: MANAGEMENT OF PATIEN T CARE PER NURSING PROTOCOL MR/POSTOP.ANEon 06-23-2025 MR/POSTOP.[facility] Medical Records Department [address] [place] [address] Anesthesia Postop Eval I 06/23/2557 MR#: [id number] Acct: [id number] Name: TORI GRAY Rep #: [id number] : 1980 45 From: Ankur Templeton CRNA PCP: Dr. Ivette Grimes MD Status:[facility] Y Race: C Location: [place] [address] Anesthesia: Postop Eval I Current Vital Signs Temperature: 97.8 F Pulse Rate: 74 Blood Pressure: 114/70 Respiratory Rate: 16 Pulse Ox: 94 Assessment Airway patent: Yes Spontaneous unlabored respirations: Yes nausea: No Vomiting: No Anesthesia Complication: No Fluid Hydration Crystalloid volume administer (ml): 800 Total IV fluid infused: 800 Progress Note Anesthesia document: Postop Eval 1 completed: Yes 06/23/25 0858 Date Ankur Templeton TEXTILE MACHINE MAINTENANCE MECHANIC Cosigner Signature: Date CC: Signed Normal [facility] Operative Reporton 5 Operative Report [facility] Medical Records Department [address] [place] [address] Operative Report 06/23/25 0831 MR#: [id number] Acct: [id number] Name: TORI GRAY Rep #: [id number] : 1980 45 From: Brett Quiroga MD PCP: Dr. Ivette Grimes MD Status:[facility] Location: [place] [address] 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 creative engagement director: Yes Energy Control Officer: jamila Tasks completed by appeals assistant: Retracting Additional social service assistant?: No Type of Anesthesia: Block,Regional and General RN Documented Start/Stop Times: Operation Date: 06/23/25 07:30 Case Time Into Pre-Op 06/23/25 06:21 Out of Pre-Op 06/23/25 07:40 Anesthesia Start 06/23/25 07:41 Into Room 06/23/25 07:41 Procedure Start 06/23/25 08:09 Procedure Start Time: 08:09 Procedure Stop Time: 08:32 Select all DRAINS/GRAFTS/IMPLA NTS that apply: None Estimated Blood Loss: 20 Specimen collected: No Description of surgery: Patient brought to the operating room theater. Placed supine on the table. General anesthesia induced. 3 g of IV Ancef administered prior to the start of the case. Patient transferred left side up lateral decubitus beanbag positioner. Axillary roll placed. SCDs on the legs. All bony prominences padded. Upper extremity prepped and draped in the usual sterile fashion with chlorhexidine-based prep solution allowing over 3 minutes drying time prior to draping. 10 pounds of inline traction with the arm in 40 degrees of abduction was used. Preoperative timeout performed to confirm the site patient and the surgery. Began by inserting the arthroscope into the intra-articular portion of the shoulder. Use spinal needle inside out localization to perform an anterior portal through the rotator interval. Did a full diagnostic arthroscopy. Cartilage on the humeral head and the glenoid was normal. LHB normal, stable anchor. Labrum normal. The subscapularis was normal. Undersurface cuff normal. No fraying of tears. No loose body. I then placed the arthroscope into the subacromial space and used 1 accessory lateral portals. Did a complete bursectomy for moderate amount of mostly inflammatory bursitis. Downsloping of AL acromion. Used high speed kasey to flatten this by 4mm. Again probed the rotator cuff, no tears or fraying. Arthroscopy pictures taken and saved onto the system throughout the case. wounds thoroughly irrigated. Meticulous hemostasis achieved. Portal sites cleaned with wet dry dressing followed by closure of the portals with 3-0 Monocryl sutures. Steri-Strips Adaptic 4 x 4 gauze ABD dressing with cloth tape and an abduction pillow sling was then placed. Patient woken up from general anesthetic transferred off the operating room table and taken to postanesthetic care unit in stable condition. All sponge needle instrument counts were correct. Plan to the patient discharged home according to day surgery criteria. CPT 46513, 34280 Surgical Findings: As above Complications Complications: No Admit VTE Documentation VTE Present on Admission: No VTE Mechan Device Prophylaxis: SCD's VTE Pharm Prophylaxis ordered?: No Reason prophylaxis not ordered: Treatment Not Indicated 06/23/25 0836 Cosigner Signature (if applicable): CC: Dr. Brett Quiroga MD; Dr. Ivette Grimes MD Signed Normal [facility] ,Urineon 06-23-2025 Beta HCG ( test) Ql (U) Negative Normal [facility] Comment on above: Result Comment: Very dilute urine specimens, as indicated by a low specific gravity, may not contain fraud representative levels of hCG. If is still suspected, a first morning urine specimen should be collected 48 hours later and tested. Performed By: #### L 877.1162 #### [facility] [place], [address] Urine testOrdered By: Woody Choudhary on 06-23-2025 HCG ( test) Ql (U) Negative [facility] Comment on above: Very dilute urine sp ecimens, as indicated by a low specificgravity, may not contain fraud representative levels of hCG. If is still suspected, a first morning urinespecimen should be collected 48 hours later and tested. Chiropractic Reporton 2024 Chiropractic Report [facility] [address] [place] [address] OFFICE VISIT Date of Service: 06/17/25 MR#: [id number] Acct: [id number] Name: TORI GRAY Rep #: [id number] : 1980 Provider: CONCEPCIÓN Montgomery Age/Sex: 45/F [place] [facility] Status: Signed Intake Vital Signs 05/06/25 10:04 [...] mcg (0.03 2 spray intranasal BID PRN 08/23/2 0 06/17/25 History %) nasal spray allergies [...] History mg/3 mL) subcutaneous pen injector (Ozempic) [facility] Medical History Diabetes Fatty liver Gastric reflux [...] continues to (more content not included)... Normal [facility] MR/PAT.ANEon 06-15-2025 MR/PAT.[facility] Medical Records Department [address] [place] [address] PAT - Anesthesia 06/15/25 1647 MR#: [id number] Acct: [id number] Name: TORI GRAY Rep #: [id number] : 1980 45 From: Newton Preciado MD PCP: Dr. Ivette Grimes MD Status:[facility] Y Race: C Location: [facility] Pre-Assessment Diagnosis/Proposed Procedure Planned Operative Procedure(s): LEFT SHOULDER ARTHROSCOPY, SUBACROMIAL DECOMPRESSION DEBRIDMENT Anesthesia History Anesthesia History - manager of project management: Anesthesia History - manager of project management Hx Hospitalization No 06/10/25 09:08 Any Problems [...] take am of surgery PONV PONV - manager of project management: PONV - manager of project management Female Yes 06/10/25 09:08 HX of Motion [...] 05/06/25 10:04 Respiratory Assessment Respiratory Assessment - manager of project management: Respiratory Tract Infection Hx - manager of project management Hx Respiratory Tract Infection No 06/10/25 09:08 STOP Sleep Apnea STOP Sleep Apnea - manager of project management: STOP Sleep Apnea - manager of project management Hx Hypertension No: LISINOPRIL FOR LIVER 06/10/25 [...] Tobacco Use History Tobacco Use History - manager of project management: Tobacco Use History - manager of project management Tobacco Use Non-smoker 03/09/25 09:20 Smoking Status Never smoker 06/10/25 09:08 Hx Tobacco Use No 06/10/25 09:08 Years Smoking Packs Smoked per Day Smoking Cessation Date was within the last 15 years Hx Smoking Cessation Date Hx Smoking Cessation Counseling Hematologic Medial History Hematologic Hx - manager of project management: Hematologic Medical Hx - ultrasound specialist Hx of Blood Transfusion No 06/10/25 09:08 [...] /Reproduct ion History /Reproduct ashish History - manager of project management: /Reproduct ashish Hx- manager of project management Hx Now No 06/10/25 09:08 Gestational Age (in weeks): EDC: Hx Hx Para Hx Section SAB No 06/10/25 09:08 [facility] Medical History (Updated 06/10/25 @ 09:17 by [...] respiratory insuffi (more content not included)... Normal [facility] Electrocardiogram reportOrde red By: Vin Montes on 06-11-2025 EKG study [facility] Cardiovascular Services [address] [place] [address] 12 Lead EKG 06/10/25 1247 MR#: [id number] Acct: [id number] Name: TORI GRAY Rep #:[id number] : 1980 44 From: Vin Montes MD Attending Dr: Dr. Brett Quiroga MD Status: PRE SDC Ordering Dr: Woody Choudhary MD Date: Location: [facility] Sex: F C Admitted: Test Reason : [...] Abnormal ECG Confirmed by VIN MONTES MD ([id number]), sports editor PRISCILA FERRERA ([id number]) on 06/11/2025 5:54:48 AM Referred By: Brett Quiroga Confirmed By: VIN MONTES MD 06/11/25 0554 Date _ Vin Montes MD CC: Dr. Woody Choudhary MD; Dr. Brett Quiroga MD; Dr. Ivette Grimes MD ~ [facility] Work Phone: 12 Lead EKGon 06-10-2025 12 Lead EKG [facility] Cardiovascular Services [address] [place] [address] 12 Lead EKG 06/10/25 1247 MR#: [id number] Acct: [id number] Name: TORI GRAY Rep #: [id number] : 1980 44 From: Vin Montes MD Attending Dr: Dr. Brett Quiroga MD Status: MT E SDC Ordering Dr: Woody Choudhary MD Date: 06/10/25 Location: [facility] Sex: F C Admitted: Test Reason : [...] Abnormal ECG Confirmed by VIN MONTES MD ([id number]), sports editor PRISCILA FERRERA ([id number]) on 06/11/2025 5:54:48 AM Referred By: Brett Quiroga Confirmed By: VIN MONTES MD 06/11/25 0554 Date Vin Montes MD CC: Dr. Woody Choudhary MD; Dr. Brett Quiroga MD; Dr. Ivette Grimes MD Signed Normal [facility] LDL CHOLESTEROL DIRECT (FOR REMOTE [facility] USE)on 06-10-2025 [facility] LDL, Directon 06-10-2025 Cholesterol in LDL [Mass/Vol] 96 mg/dL Normal 0-99 [facility] Comment on above: Result Comment: Perf ormed at: - [facility] [address] [id number] Data Modeling Specialist: José Antonio Aldana PhD, Phone: [phone] Performed By: #### L 3300.4490, L539.9985 ####[facility] [address] [place], [place], [id number] COMMENT TNP Normal . [facility] Comment on above: Performed By: #### L 3300.4490, L501.9985 ####[facility] [address] [place], [place], [id number] CNPNon 06-09-20[facility] TORI GRAY ([id number]) 1980 F Date Time Provider Department 06/09/25 [facility] During your visit today, we recorded the following information about you: Nirmala Storey LPN 06/09/2025 10:21 AM Signed HgbA1C from [facility] 7.4 Ivette Grimes MD 06/09/2025 10:49 AM Signed Lets increase the ozempic to 2 mg a day. Call sugars in two weeks. Watch the diet. Nirmala Storey LPN 06/09/2025 3:25 PM Addendum [employer] message sent to the patient. Juliana Murphy [...] long-term current use of insulin ([facility]) [E11.29, R80.9, Z79.4] Order(s):HBA1C (OUTSIDE) [3079867] Order #: [id number] semaglutide (OZEMPIC) 2 mg/dose (8 mg/3 mL) pen injectorInject 2 mg subcutaneously one time a week.Disp: 3 mLRfl: 5 LDL CHOLESTEROL DIRECT (FOR REMOTE [facility] USE) [SQRLDL] Order #: [id number] Prescriptions as of 06/18/2025 - omeprazole (PRILOSEC) [...] tablet by mouth once daily. - Ipratropium Olney (ATROVENT) 21 mcg (0.03 %) nasal spray [...] DM - Controlled E11.9 Insulin: No - Jccmnksj-Ul-Fzt-Fe- FA tab Take 1 tablet by mouth [...] 05/06/2009 01/23/2010 Routine general medical examination at [facility]*01/23/2010 12/06/2012 Class: Chronic Routine gynecological examination [Z01.419] 01/23/2010 02/22/2014 Class: Chronic Morbid obesity (HCC) [E66.01] 01/23/2010 06/07/2025 Lumbar Disc Disorder [M51.9] 02/16/2010 Routine general medical examination at [facility]*12/06/2012 02/22/2014 Anxiety [F41.9] 06/07/2014 Type 2 [...] [I10] 10/ (more content not included)... Normal [facility] Cholesterol in LDL Direct as say [Mass/Vol]Ordered By: Ivette Grimes on 06-09-2025 Cholesterol in LDL [Mass/Vol] 96 mg/dL 0-99 [facility] Comment on above: Performed at: [address] [id number] Director: José Antonio Aldana PhD, Phone: [phone] HBA1C (OUTSIDE)on 06-09-2025 [facility] Hemoglobin A1con 06-09-2025 HbA1c (Bld) [Mass fraction] 7.4 % High <=5.6 [facility] Comment on above: Result Comment: Norm al < 5.7 % Prediabetic 5.7 - 6.4 % Diabetic >or= 6.5 % Please note range changes. Performed By: #### L 3300.4490, L501.9985 ####[facility] [address] [place], [address] Hemoglobin A1c percentageOrd ered By: Ivette Grimes on 06-09-2025 HbA1c (Bld) [Mass fraction] 7.4 % High <5.7 [facility] Comment on above: Normal < 5.7 % Predi abetic 5.7 - 6.4 % Diabetic >or= 6.5 % Please note range changes. Laboratory - Miscellaneous t estsOrdered By: Ivette Grimes on 06-09-2025 Service comment (Unsp spec) [Interp] TNP [facility] Comment on above: Test not performed CNOVon 06-07-2025 [facility] ---- TORI GRAY ([id number]) 1980 F Date Time Provider Department 06/07/25 6:40 PM [facility] During your visit today, we recorded [...] with Dr. Quiroga on June 23 at [facility]. - Keep your neurology appointment on [...] for June [address] [facility]. - Follow-up appointment with Dr. Camacho for [...] 1 tablet by mouth once daily. Ipratropium Olney (ATROVENT) 21 mcg (0.03 %) nasal spray [...] 1 Each by INTRAUTERINE route as directed. Hiatbiwb-Hr-Nxw-Fe- FA tab Take 1 tablet by mouth [...] blood sugar(s) (more content not included)... Normal [facility] Absolute lymphocyte countOrd ered By: HEALTH ASSESSMENT on 06-05-2025 Lymphocytes Auto (Unsp spec) [#/Vol] 2.43 10*3/uL 0.83-4.51 [facility] Absolute neutrophil countOrd ered By: HEALTH ASSESSMENT on 06-05-2025 Neutrophils (Bld) [#/Vol] 6.3 10*3/uL 2.0-7.7 [facility] Absolute nucleated red blood cell countOrdered By: HEALTH ASSESSMENT on 06-05-2025 Nucleated RBC (Bld) [#/Vol] 0.00 10*3/uL 0-5 [facility] Anion gap in Serum or Plasma Ordered By: HEALTH ASSESSMENT on 06-05-2025 Anion gap [Moles/Vol] 14 mmol/L 5-15 [facility] BUN/creatinine ratioOrdered By: HEALTH ASSESSMENT on 06-05-2025 Urea nitrogen/Creatinine [Mass ratio] 10.6 mg/mg 10-20 [facility] Bilirubin Test strip Ql (U)O rdered By: HEALTH ASSESSMENT on 06-05-2025 Bilirubin Ql (U) Negative Negative [facility] Bilirubin directOrdered By: HEALTH ASSESSMENT on 06-05-2025 Bilirubin.direct [Mass/Vol] 0.20 mg/dL 0.00-0.30 [facility] Bilirubin, totalOrdered By: HEALTH ASSESSMENT on 06-05-2025 Bilirubin [Mass/Vol] 0.51 mg/dL 0.00-1.30 [facility] CBC, Employeeon 06-05-2025 Absolute Lymph 2.43 X10 3/uL Normal 0.83-4.51 [facility] Comment on above: Performed By: #### L 100.0200, L400.0100, L500.2900 ####[facility] [address] [place], [address] Absolute Neut 6.3 X10 3/uL Normal 2.0-7.7 [facility] Comment on above: Performed By: #### L 100.0200, L400.0100, L500.2900 ####[facility] [address] [place], [address] Basophils/100 WBC (Bld) 0.9 % Normal 0-1 [facility] Comment on above: Performed By: #### L 100.0200, L400.0100, L500.2900 ####[facility] [address] [place], [address] Eosinophils/100 WBC (Bld) 1.8 % Normal 0-5 [facility] Comment on above: Performed By: #### L 100.0200, L400.0100, L500.2900 ####[facility] [address] [place], [address] Erythrocyte distribution width (RBC) [Ratio] 14.5 % Normal 11.6-14.6 [facility] Comment on above: Performed By: #### L 100.0200, L400.0100, L500.2900 ####[facility] [address] [place], [address] Hematocrit (Bld) [Volume fraction] 39.2 % Normal 37-47 [facility] Comment on above: Performed By: #### L 100.0200, L400.0100, L500.2900 ####[facility] [address] [place], [address] Hemoglobin (Bld) [Mass/Vol] 13.5 g/dL Normal 12.0-15.0 [facility] Comment on above: Performed By: #### L 100.0200, L400.0100, L500.2900 ####[facility] [address] [place], [address] Lymphocytes/100 WBC (Bld) 25.5 % Normal 19-41 [facility] Comment on above: Performed By: #### L 100.0200, L400.0100, L500.2900 ####[facility] [address] [place], [address] MCH (RBC) [Entitic mass] 32.4 pg High 27.0-32.0 [facility] Comment on above: Performed By: #### L 100.0200, L400.0100, L500.2900 ####[facility] [address] [place], [address] MCHC (RBC) [Mass/Vol] 34.4 g/dL Normal 32-36 [facility] Comment on above: Performed By: #### L 100.0200, L400.0100, L500.2900 ####[facility] [address] [place], [address] MCV (RBC) [Entitic vol] 94.0 fL Normal 81-99 [facility] Comment on above: Performed By: #### L 100.0200, L400.0100, L500.2900 ####[facility] [address] [place], [address] Monocytes/100 WBC (Bld) 3.6 % Normal 0-10 [facility] Comment on above: Performed By: #### L 100.0200, L400.0100, L500.2900 ####[facility] [address] [place], [address] Neutrophils/100 WBC (Bld) 66.2 % Normal 47-70 [facility] Comment on above: Performed By: #### L 100.0200, L400.0100, L500.2900 ####[facility] [address] [place], [address] NRBC # 0.00 10 3/uL Normal 0-5 [facility] Comment on above: Performed By: #### L 100.0200, L400.0100, L500.2900 ####[facility] [address] [place], [address] Nucleated RBC (Bld) [#/Vol] 0 10*3/uL Normal 0-5 [facility] Comment on above: Performed By: #### L 100.0200, L400.0100, L500.2900 ####[facility] [address] [place], [address] Platelet mean volume (Bld) [Entitic vol] 9.6 fL Normal 6.2-12.0 [facility] Comment on above: Performed By: #### L 100.0200, L400.0100, L500.2900 ####[facility] [address] [place], [address] Platelets (Bld) [#/Vol] 192 10*3/uL Normal 150-450 [facility] Comment on above: Performed By: #### L 100.0200, L400.0100, L500.2900 ####[facility] [address] [place], [address] RBC (Bld) [#/Vol] 4.17 10*6/uL Low 4.2-5.4 [facility] Comment on above: Performed By: #### L 100.0200, L400.0100, L500.2900 ####[facility] [address] [place], [address] RDW SD 49.7 fl High 35.1-43.9 [facility] Comment on above: Performed By: #### L 100.0200, L400.0100, L500.2900 ####[facility] [address] [place], [address] WBC (Bld) [#/Vol] 9.5 10*3/uL Normal 4.4-11.0 [facility] Comment on above: Performed By: #### L 100.0200, L400.0100, L500.2900 ####[facility] [address] [place], [address] Calculated very low density lipoprotein (VLDL) cholesterol measurementOrdered By: HEALTH ASSESSMENT on 06-05-2025 Calculated very low density lipoprotein (VLDL) cholesterol measurement 62 mg/dL High 5-40 [facility] Carbon dioxide, total [Moles /volume] in Central venous bloodOrdered By: HEALTH ASSESSMENT on 06-05-2025 CO2 [Moles/Vol] 17.5 mmol/L Low 21.0-32.0 [facility] Chloride assayOrdered By: HE ALTH ASSESSMENT on 06-05-2025 Chloride [Moles/Vol] 105 mmol/L 98-108 [facility] Employee Profileon LDH 188 U/L Normal 84-246 [facility] Comment on above: Performed By: #### L 100.0200, L400.0100, L500.2900 ####[facility] [address] [place], [address] Phosphate [Mass/Vol] 2.2 mg/dL Low 2.7-4.5 [facility] Comment on above: Performed By: #### L 100.0200, L400.0100, L500.2900 ####[facility] [address] [place], [address] URIC 6.9 mg/dL High 2.6-6.0 [facility] Comment on above: Result Comment: The drugs N-Acetylcysteine and Metamizole may falsely depress this assay. Performed By: #### L 100.0200, L400.0100, L500.2900 ####[facility] [address] [place], [address] Erythrocyte distribution wid th ratioOrdered By: HEALTH ASSESSMENT on 06-05-2025 Erythrocyte distribution width (RBC) [Ratio] 14.5 % 11.6-14.6 [facility] Erythrocyte distribution wid th standard deviationOrdered By: HEALTH ASSESSMENT on 06-05-2025 Erythrocyte distribution width (RBC) [Ratio] 49.7 fl High 35.1-43.9 [facility] Glomerular filtration rate ( GFR) estimation/1.73 sq m using serum, plasma, or whole bOrdered By: HEALTH ASSESSMENT on 06-05-2025 GFR/1.73 sq M.predicted among non-blacks MDRD (S/P/Bld) [Vol rate/Area] 94 mL/min/{1.73_m2} >60 [facility] Comment on above: mL/min/1.73m2 CKD-EP I Creatinine Equation (2020) Hematocrit Auto (Bld) [Volum e fraction]Ordered By: HEALTH ASSESSMENT on 06-05-2025 Hematocrit (Bld) [Volume fraction] 39.2 % 37-47 [facility] Hemoglobin measurementOrdere d By: HEALTH ASSESSMENT on 06-05-2025 Hemoglobin (Bld) [Mass/Vol] 13.5 g/dL 12.0-15.0 [facility] Ketones Test strip Ql (U)Ord ered By: HEALTH ASSESSMENT on 06-05-2025 Ketones Ql (U) Negative Negative [facility] LDL calc ser/plasOrdered By: HEALTH ASSESSMENT on 06-05-2025 Cholesterol in LDL [Mass/Vol] 92 mg/dL [facility] Comment on above: Ruxwtdjqkg=861-752 m g/dL & Higher Asvu=132 mg/dL or greaterFriedwald Equation for LDL-C Laboratory - Chemistry and C hemistry - challengeOrdered By: HEALTH ASSESSMENT on 06-05-2025 AST [Catalytic activity/Vol] 41 U/L High <32 [facility] Lactate dehydrogenase (LDH) measurementOrdered By: HEALTH ASSESSMENT on 06-05-2025 LDH [Catalytic activity/Vol] 188 U/L 84-246 [facility] MCV (mean corpuscular volume ) determinationOrdered By: HEALTH ASSESSMENT on 06-05-2025 MCV (RBC) [Entitic vol] 94.0 fL 81-99 [facility] Mean corpuscular hemoglobin (MCH) determinationOrdered By: HEALTH ASSESSMENT on 06-05-2025 MCH (RBC) [Entitic mass] 32.4 pg High 27.0-32.0 [facility] Mean corpuscular hemoglobin concentration (MCHC) determinationOrdered By: HEALTH ASSESSMENT on 06-05-2025 MCHC (RBC) [Mass/Vol] 34.4 g/dL 32-36 [facility] Mean platelet volume determi nationOrdered By: HEALTH ASSESSMENT on 06-05-2025 Platelet mean volume (Bld) [Entitic vol] 9.6 fL 6.2-12.0 [facility] Neutrophil percentageOrdered By: HEALTH ASSESSMENT on 06-05-2025 Neutrophils/100 WBC (Bld) 66.2 % 47-70 [facility] Nitrite Test strip Ql (U)Ord ered By: HEALTH ASSESSMENT on 06-05-2025 Nitrite Ql (U) Negative Negative [facility] Nucleated red blood cell per centageOrdered By: HEALTH ASSESSMENT on 06-05-2025 Nucleated RBC/100 WBC (Bld) [Ratio] 0 % 0-5 [facility] Platelet countOrdered By: HE ALTH ASSESSMENT on 06-05-2025 Platelets (Bld) [#/Vol] 192 10*3/uL 150-450 [facility] Potassium measurement (mass/ volume)Ordered By: HEALTH ASSESSMENT on 06-05-2025 Potassium (Unsp spec) [Mass/Vol] 4.0 mmol/L 3.3-5.1 [facility] Protein Test strip Ql (U)Ord ered By: HEALTH ASSESSMENT on 06-05-2025 Protein Ql (U) 100 mg/dl High Negative [facility] RBC Auto (Bld) [#/Vol]Ordere d By: HEALTH ASSESSMENT on 06-05-2025 RBC (Bld) [#/Vol] 4.17 10*6/uL Low 4.2-5.4 [facility] Screening total cholesterol/ high density lipoprotein (HDL) cholesterol ratioOrdered By: HEALTH ASSESSMENT on 06-05-2025 Cholesterol.total/Choles terol in HDL [Mass ratio] 5.63 {ratio} [facility] Serum creatinine measurement (mass/volume)Ordered By: HEALTH ASSESSMENT on 06-05-2025 Creatinine [Mass/Vol] 0.80 mg/dL 0.70-1.20 [facility] Serum globulin measurementOr dered By: HEALTH ASSESSMENT on 06-05-2025 Globulin (S) [Mass/Vol] 3.3 g/dL 2.2-4.2 [facility] Serum glucose measurement (m ass/volume)Ordered By: HEALTH ASSESSMENT on 06-05-2025 Glucose [Mass/Vol] 210 mg/dL High 70-99 [facility] Serum or plasma alanine arizmendi otransferase (ALT) measurementOrdered By: HEALTH ASSESSMENT on 06-05-2025 ALT [Catalytic activity/Vol] 43 U/L High <35 [facility] Serum or plasma albumin sharron urement (mass/volume)Ordered By: HEALTH ASSESSMENT on 06-05-2025 Albumin [Mass/Vol] 4.2 g/dL 3.5-5.0 [facility] Serum or plasma albumin/glob ulin mass ratioOrdered By: HEALTH ASSESSMENT on 06-05-2025 Albumin/Globulin [Mass ratio] 1.3 {ratio} 0.9-2.4 [facility] Serum or plasma alkaline toyin sphatase measurementOrdered By: HEALTH ASSESSMENT on 06-05-2025 ALP [Catalytic activity/Vol] 84 U/L 35-104 [facility] Serum or plasma calcium sharron urement (mass/volume)Ordered By: HEALTH ASSESSMENT on 06-05-2025 Calcium [Mass/Vol] 8.8 mg/dL 7.6-11.0 [facility] Serum or plasma cholesterol in HDL measurement (mass/volume)Ordered By: HEALTH ASSESSMENT on 06-05-2025 Cholesterol in HDL [Mass/Vol] 33 mg/dL Low >40 [facility] Comment on above: National Cholesterol Education Program (NCEP) guidelines:<40 mg/dL: Low HDL-cholesterol (major risk factor for CHD)>= 60 mg/dL: High HDL-cholesterol (negative risk factor for CHD)HDL-cholesterol is affected by a number of factors, e.g. smoking, exercise, hormones, sex and age. Serum or plasma cholesterol measurement (mass/volume)Ordered By: HEALTH ASSESSMENT on 06-05-2025 Cholesterol [Mass/Vol] 187 mg/dL <201 [facility] Comment on above: Cholesterol level, D esirable <200 mg/dLBorderline high cholesterol 200-239 mg/dLHigh cholesterol >=240 mg/dLRecommendations of the NCEP Adult Treatment Panel for the following risk-cutoff thresholds for the [place] population. Serum or plasma urea nitroge n measurement (mass/volume)Ordered By: HEALTH ASSESSMENT on 06-05-2025 Urea nitrogen [Mass/Vol] 9 mg/dL 4-19 [facility] Serum or plasma uric acid me asurement (mass/volume)Ordered By: HEALTH ASSESSMENT on 06-05-2025 Urate [Mass/Vol] 6.9 mg/dL High 2.6-6.0 [facility] Comment on above: The drugs N-Acetylcy steine and Metamizole may falsely depress this assay. Sodium levelOrdered By: HEAL ASSESSMENT on 06-05-2025 Sodium [Moles/Vol] 137 mmol/L 133-145 [facility] Total proteinOrdered By: HEA [facility] ASSESSMENT on 06-05-2025 Protein [Mass/Vol] 7.5 g/dL 5.9-8.4 [facility] Triglycerides measurementOrd ered By: HEALTH ASSESSMENT on 06-05-2025 Triglyceride [Mass/Vol] 310 mg/dL High <199 [facility] Comment on above: The drugs N-Acetylcy steine and Metamizole may falsely depress this assay. Normal range: <150 mg/dLBorderline High: 150-199 mg/dLHigh: 200-499 mg/dLVery High: >500 mg/dL Urinalysis, Employeeon 06-05 BILIRUBIN URINE Negative Normal Negative [facility] Comment on above: Order Comment: Urine , Random Performed By: #### L 100.0200, L400.0100, L500.2900 ####[facility] [address] [place], [address] Clarity (U) Sl. Cloudy Normal Clear [facility] Comment on above: Order Comment: Urine , Random Performed By: #### L 100.0200, L400.0100, L500.2900 ####[facility] [address] [place], [address] Color (U) Yellow Normal Yellow [facility] Comment on above: Order Comment: Urine , Random Performed By: #### L 100.0200, L400.0100, L500.2900 ####[facility] [address] [place], [address] GLUCOSE, UR Normal Normal Normal [facility] Comment on above: Order Comment: Urine , Random Performed By: #### L 100.0200, L400.0100, L500.2900 ####[facility] [address] [place], [address] KETONE UR Negative Normal Negative [facility] Comment on above: Order Comment: Urine , Random Performed By: #### L 100.0200, L400.0100, L500.2900 ####[facility] [address] [place], [address] LEUK ESTERASE 500 /ul Abnormal Negative [facility] Comment on above: Order Comment: Urine , Random Performed By: #### L 100.0200, L400.0100, L500.2900 ####[facility] [address] [place], [address] Nitrite Ql (U) Negative Normal Negative [facility] Comment on above: Order Comment: Urine , Random Performed By: #### L 100.0200, L400.0100, L500.2900 ####[facility] [address] [place], [address] OCCULT BLOOD-UR 25 /ul Abnormal Negative [facility] Comment on above: Order Comment: Urine , Random Performed By: #### L 100.0200, L400.0100, L500.2900 ####[facility] [address] [place], [address] pH UR 6.0 Normal 5.0 - 8.0 [facility] Comment on above: Order Comment: Urine , Random Performed By: #### L 100.0200, L400.0100, L500.2900 ####[facility] [address] [place], [address] PROT DIPSTX 100 mg/dl Abnormal Negative [facility] Comment on above: Order Comment: Urine , Random Performed By: #### L 100.0200, L400.0100, L500.2900 ####[facility] [address] [place], [address] SP.GR. DIPSTX 1.015 Normal 1.002-1.030 [facility] Comment on above: Order Comment: Urine , Random Performed By: #### L 100.0200, L400.0100, L500.2900 ####[facility] [address] [place], [address] UROBILI Normal Normal Normal [facility] Comment on above: Order Comment: Urine , Random Performed By: #### L 100.0200, L400.0100, L500.2900 ####[facility] [address] [place], [address] Urine clarityOrdered By: A [facility] ASSESSMENT on 06-05-2025 Clarity (U) Sl. Cloudy Clear [facility] Urine color determinationOrd ered By: HEALTH ASSESSMENT on 06-05-2025 Color (U) Yellow Yellow [facility] Urine glucose detectionOrder ed By: HEALTH ASSESSMENT on 06-05-2025 Glucose Ql (U) Normal mg/dl Normal [facility] Urine leukocyte esterase det ection by dipstickOrdered By: HEALTH ASSESSMENT on 06-05-2025 Leukocyte esterase Test strip Ql (U) 500 /ul High Negative [facility] Urine pHOrdered By: HEALTH A SSESSMENT on 06-05-2025 pH (U) 6.0 [pH] 5.0 - 8.0 [facility] Urine specific gravity measu rementOrdered By: HEALTH ASSESSMENT on 06-05-2025 Specific gravity (U) [Rel density] 1.015 1.002-1.030 [facility] Urine urobilinogen measureme ntOrdered By: HEALTH ASSESSMENT on 06-05-2025 Urobilinogen Ql (U) Normal mg/dl Normal [facility] White blood cell (WBC) count Ordered By: HEALTH ASSESSMENT on 06-05-2025 WBC (Bld) [#/Vol] 9.5 10*3/uL 4.4-11.0 [facility] Chiropractic Reporton 2024 Chiropractic Report [facility] [place], [place] [address] OFFICE VISIT Date of Service: 06/01/25 MR#: [id number] Acct: [id number] Name: TORI GRAY Rep #: [id number] : 1980 Provider: CONCEPCIÓN Montgomery Age/Sex: 44/F [place] [facility] Status: Signed Intake Vital Signs 03/22/25 09:08 [...] left t (more content not included)... Normal [facility] Orthopedic Visit Reporton Orthopedic Visit Report [facility] [address] [place] [address] [address] [place] [address] OFFICE VISIT Date of Service: 05/06/25 MR#: [id number] Acct: [id number] Name: TORI GRAY Rep #: [id number] : 1980 Provider: Dr. Brett kessler MD Age/Sex: 44/F [place] [facility] Status: Signed Intake Vital Signs 03/22/25 09:08 [...] by me, (more content not included)... Normal [facility] Chiropractic Reporton 2024 Chiropractic Report [facility] [address] [place] [address] OFFICE VISIT Date of Service: 04/21/25 MR#: [id number] Acct: [id number] Name: TORI GRAY Rep #: [id number] : 1980 Provider: CONCEPCIÓN Montgomery Age/Sex: 44/F Location: [facility] [place] Status: Signed Intake Vital Signs 03/22/25 09:08 [...] appointment w (more content not included)... Normal [facility] Magnetic resonance imaging r eportOrdered By: Salazar Tyson on 04-19-2025 Study report [facility] Imaging Services [address] [place], [place] [id number] Upper Ext Joint Only(Routine) MR#: [id number] Acct: [id number] Name: TORI GRAY Rep #: [id number] : 1980 F 44 From: Moncho Tyson MD PCP: Dr. Ivette Grimes MD Status: GERMAIN CURTIS Study:Upper Ext Joint Only(Routine) Date of Exam: 04/17/25 Exam# [id number] Ordering Dr: Brett Quiroga MD PROCEDURE: UPPER [...] Quiroga MD; Dr. 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: Signed [facility] Upper Ext Joint Only(Routine )on 04-17-2025 Upper Ext Joint Only(Routine) [facility] Imaging Services [address] [place] [id number] Upper Ext Joint Only(Routine) MR#: [id number] Acct: [id number] Name: TORI GRAY Rep #: [id number] : 1980 F 44 From: Salazar Tyson MD PCP: Dr. Ivette Grimes MD Status: REG CLI Study: Upper Ext Joint Only(Routine) Date of Exam: 0 04/17/25 Exam# [id number] Ordering Dr: Brett Quiroga MD PROCEDURE: UPPER [...] Brett Quiroga MD; Dr. Ivette Grimes MD Accounting Machine Servicer: Signed [facility] GRAYTORI ([id number]) 1980 F Date Time Provider Department 04/07/25 [...] tablet by mouth once daily. - Ipratropium Olney (ATROVENT) 21 mcg (0.03 %) nasal spray [...] Each by INTRAUTERINE route as directed. - Valentine-3 Fatty Acids (FISH OIL) 500 mg cap Take 1 capsule by mouth once daily. - blood sugar diagnostic (BLOOD GLUCOSE TEST) test strip Test blood sugar(s) 1 times daily. Dx: Type 2 DM - Controlled E11.9 Insulin: Yes - Lancets lancets Test blood sugar(s) 1 times daily. Dx: Type 2 DM - Controlled E11.9 Insulin: No - Ygkluxbl-Is-Sdl-Fe- FA tab Take 1 tablet by mouth [...] 05/06/2009 01/23/2010 Routine general medical examination at [facility]*01/23/2010 12/06/2012 Class: Chronic Routine gynecological examination [Z01.419] 01/23/2010 02/22/2014 Class: Chronic Morbid Obesity [E66.01] 01/23/2010 Lumbar Disc Disorder [M51.9] 02/16/2010 Routine general medical examination at [facility]*12/06/2012 02/22/2014 Anxiety [F41.9] 06/07/2014 Type 2 [...] 09/04/2022 09/04/2022 (more content not included)... Normal [facility] Chiropractic Reporton 2024 Chiropractic Report [facility] [address] [place] [address] OFFICE VISIT Date of Service: 04/05/25 MR#: [id number] Acct: [id number] Name: TORI GRAY Rep #: [id number] : 1980 Provider: CONCEPCIÓN Montgomery Age/Sex: 44/F [place] [facility] Status: Signed Intake Vital Signs [...] week (more content not included)... [facility] 04-01-2025 [facility] ---- TORI GRAY ([id number]) 1980 F Date Time Provider Department 04/01/25 [facility] [place] During your visit today, we recorded the following information about you: Nakai Caraballo RN 04/01/2025 12:47 PM Signed Botox approved until 11/03/25. Patient and scheduling made aware. She is a patient of [facility] but due to her being out on [...] tablet by mouth once daily. - Ipratropium Olney (ATROVENT) 21 mcg (0.03 %) nasal spray [...] Each by INTRAUTERINE route as directed. - Valentine-3 Fatty Acids (FISH OIL) 500 mg cap Take 1 capsule by mouth once daily. - blood sugar diagnostic (BLOOD GLUCOSE TEST) test strip Test blood sugar(s) 1 times daily. Dx: Type 2 DM - Controlled E11.9 Insulin: Yes - Lancets lancets Test blood sugar(s) 1 times daily. Dx: Type 2 DM - Controlled E11.9 Insulin: No - Tljhdnjs-Pp-Wft-Fe- FA tab Take 1 tablet by mouth [...] 05/06/2009 01/23/2010 Routine general medical examination at [facility]*01/23/2010 12/06/2012 Class: Chronic Routine gynecological examination [Z01.419] 01/23/2010 02/22/2014 Class: Chronic Morbid Obesity [E66.01] 01/23/2010 Lumbar Disc Disorder [M51.9] 02/16/2010 Routine general medical examination at [facility]*12/06/2012 02/22/2014 Anxiety [F41.9] 06/07/2014 Type 2 [...] mellitus [Z86.39] (more content not included)... Normal [facility] Chiropractic Reporton 2024 Chiropractic Report [facility] [address] [place] [address] OFFICE VISIT Date of Service: 03/22/25 MR#: [id number] Acct: [id number] Name: TORI GRAY Rep #: [id number] : 1980 Provider: CONCEPCIÓN Montgomery Age/Sex: 44/F [place] [facility] Status: Signed Intake Vital Signs 03/09/25 09:20 [...] #30 ea 03/22/25 Rx packet [facility] Medical History Abnormal ECG Prolonged Q-T interval [...] an a (more content not included)... Normal [facility] Orthopedic Visit Reporton Orthopedic Visit Report [facility] [address] [place] [address] OFFICE VISIT Date of Service: 03/22/25 MR#: [id number] Acct: [id number] Name: TORI GRAY Rep #: [id number] : 1980 Provider: Dr. Brett kessler MD Age/Sex: 44/F [place] [facility] Status: Signed Intake Vital Signs 11/11/24 05:55 [...] you fallen in the past year?: Yes [facility] Abnormal ECG Prolonged Q-T [...] West (more content not included)... [facility] 03-19-2025 [facility] Telephone (NEAKMN) ---- TORI GRAY ([id number]) 1980 F Date Time Provider Department 03/19/25 [facility] [place] During your visit today, we recorded the [...] tablet by mouth once daily. - Ipratropium Olney (ATROVENT) 21 mcg (0.03 %) nasal spray [...] Each by INTRAUTERINE route as directed. - Valentine-3 Fatty Acids (FISH OIL) 500 mg cap Take 1 capsule by mouth once daily. - blood sugar diagnostic (BLOOD GLUCOSE TEST) test strip Test blood sugar(s) 1 times daily. Dx: Type 2 DM - Controlled E11.9 Insulin: Yes - Lancets lancets Test blood sugar(s) 1 times daily. Dx: Type 2 DM - Controlled E11.9 Insulin: No - Ijnpvkrb-Ry-Mmp-Fe- FA tab Take 1 tablet by mouth [...] 05/06/2009 01/23/2010 Routine general medical examination at [facility]*01/23/2010 12/06/2012 Class: Chronic Routine gynecological examination [Z01.419] 01/23/2010 02/22/2014 Class: Chronic Morbid Obesity [E66.01] 01/23/2010 Lumbar Disc Disorder [M51.9] 02/16/2010 Routine general medical examination at [facility]*12/06/2012 02/22/2014 Anxiety [F41.9] 06/07/2014 Type 2 [...] 09/04/2022 11 (more content not included)... Normal [facility] Shoulder min 2 Viewson 03-11 Shoulder min 2 Views [facility] Imaging Services [address] [place] [address] Shoulder min 2 Views MR#: [id number] Acct: [id number] Name: TORI GRAY Rep #: [id number] : 1980 F 44 From: Jackson Laureano i, MD PCP: Dr. Ivette Grimes MD Status: REG CLI Study: Shoulder min 2 Views Date of Exam: 03/11/25 Exam# [id number] Ordering Dr: Brett Quiroga MD PROCEDURE: SHOULDER [...] Brett Quiroga MD; Dr. Ivette Grimes MD Accounting Machine Servicer: Signed Normal [facility] Chiropractic Reporton 2024 Chiropractic Report [facility] [address] [place] [id number] OFFICE VISIT Date of Service: 03/09/25 MR#: [id number] Acct: [id number] Name: GRAYTORI ELIAS Rep #: [id number] : 1980 Provider: CONCEPCIÓN Mccarty Do ssi Age/Sex: 44/F [place] [facility] Status: Signed Intake Vital Signs 11/11/24 05:55 [...] #30 ea 03/09/25 Rx packet [facility] Medical History Abnormal ECG Prolonged Q-T interval [...] her sh (more content not included)... Normal [facility] 03-04-2025 [facility] Telephone (NEUSTF) ---- TORI GRAY ([id number]) 1980 F Date Time Provider Department 03/04/25 [...] tablet by mouth once daily. - Ipratropium Olney (ATROVENT) 21 mcg (0.03 %) nasal spray [...] Each by INTRAUTERINE route as directed. - Valentine-3 Fatty Acids (FISH OIL) 500 mg cap Take 1 capsule by mouth once daily. - blood sugar diagnostic (BLOOD GLUCOSE TEST) test strip Test blood sugar(s) 1 times daily. Dx: Type 2 DM - Controlled E11.9 Insulin: Yes - Lancets lancets Test blood sugar(s) 1 times daily. Dx: Type 2 DM - Controlled E11.9 Insulin: No - Ayjfojpo-Oy-Axr-Fe- FA tab Take 1 tablet by mouth [...] 01/23/2010 [facility]*01/23/2010 12/06/2012 Class: Chronic Routine gynecological examination [Z01.419] 01/23/2010 02/22/2014 Class: Chronic Morbid Obesity [E66.01] 01/23/2010 Lumbar Disc Disorder [M51.9] 02/16/2010 Routine general medical examination at a regional medical center*12/06/2012 02/22/2014 Anxiety [F41.9] 06/07/2014 Type [...] headache [G43. (more content not included)... Normal [facility] CNPNon 02-24-2025 [facility] Telephone (HOMERO) ---- TORI GRAY ([id number]) 1980 F Date Time Provider Department 02/24/25 [...] tablet by mouth once daily. - Ipratropium Olney (ATROVENT) 21 mcg (0.03 %) nasal spray [...] Each by INTRAUTERINE route as directed. - Valentine-3 Fatty Acids (FISH OIL) 500 mg cap Take 1 capsule by mouth once daily. - blood sugar diagnostic (BLOOD GLUCOSE TEST) test strip Test blood sugar(s) 1 times daily. Dx: Type 2 DM - Controlled E11.9 Insulin: Yes - Lancets lancets Test blood sugar(s) 1 times daily. Dx: Type 2 DM - Controlled E11.9 Insulin: No - Lgjrqjqq-Eu-Mgi-Fe- FA tab Take 1 tablet by mouth [...] 05/06/2009 01/23/2010 Routine general medical examination at [facility]*01/23/2010 12/06/2012 Class: Chronic Routine gynecological examination [Z01.419] 01/23/2010 02/22/2014 Class: Chronic Morbid Obesity [E66.01] 01/23/2010 Lumbar Disc Disorder [M51.9] 02/16/2010 Routine general medical examination at [facility]*12/06/2012 02/22/2014 Anxiety [F41.9] 06/07/2014 Type 2 [...] 09/04/2022 Low (more content not included)... Normal [facility] Inital Evaluation (1) - PTon 02-08-2025 Inital Evaluation (1) - PT [facility] [address] [place] [address]. [address] [place] [address] / REHABILITATION SERVICES INITIAL EVALUATION MR#: [id number] Acct: [id number] Name: TORI GRAY Rep #: [id number] : 1980 44 From: Santana GOMEZT Referring Dr.: Dr. Ivette Grimes MD Status: REG RCR [facility] [employer] SELF PAY INSURANCE Patient's Visit Information Visit [...] to be FAXED BACK to us at [phone] for Medicare purposes. For Medicare only, by signing this I certify the plan of care. Please let me know if there are questions or concerns regarding this plan of care. Physician Signature: __Date: 02/08/25 1434 CC: Dr. Ivette Grimes MD CLS Signed Normal [facility] Chiropractic Reporton 2024 Chiropractic Report [facility] [address] [place] [address] OFFICE VISIT Date of Service: 02/04/25 MR#: [id number] Acct: [id number] Name: TORI GRAY Rep #: [id number] : 1980 Provider: CONCEPCIÓN Mccarty Do ssi Age/Sex: 44/F [place] [facility] Status: Signed Intake Vital Signs 11/11/24 05:55 [...] #30 ea 02/04/25 Rx packet [facility] Medical History Abnormal ECG Prolonged Q-T interval [...] adjustment. 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 Normal [facility] Anion gap in Serum or Plasma Ordered By: Ivette Grimes on 01-28-2025 Anion gap [Moles/Vol] 11 mmol/L - [facility] BUN/creatinine ratioOrdered By: Ivette Grimes on 01-28-2025 Urea nitrogen/Creatinine [Mass ratio] 18.5 mg/mg - [facility] Basic Metabolic Profile (BMP )on 01-28-2025 BUN/CRE 18.5 RATIO Normal - [facility] Comment on above: Performed By: #### L 500.2500, L501.9985 ####[facility] [address] [place], [address] Calcium [Mass/Vol] 9.0 mg/dL Normal 7.6-11.0 [facility] Comment on above: Performed By: #### L 500.2500, L501.9985 ####[facility] [address] [place], [address] Chloride [Moles/Vol] 105 mmol/L Normal 98-108 [facility] Comment on above: Performed By: #### L 500.2500, L501.9985 ####[facility] [address] [place], [address] CO2 [Moles/Vol] 21.2 mmol/L Normal 21.0-32.0 [facility] Comment on above: Performed By: #### L 500.2500, L501.9985 ####[facility] [address] [place], [address] Creatinine [Mass/Vol] 0.77 mg/dL Normal 0.70-1.20 [facility] Comment on above: Performed By: #### L 500.2500, L501.9985 ####[facility] [address] [place], [address] GAP 11 Normal -15 [facility] Comment on above: Performed By: #### L 500.2500, L501.9985 ####[facility] [address] [place], [address] GFR/1.73 sq M.predicted among non-blacks MDRD (S/P/Bld) [Vol rate/Area] 98 mL/min/{1.73_m2} Normal >60 [facility] Comment on above: Result Comment: mL/m in/1.73m2 CKD-EPI Creatinine Equation (2020) Performed By: #### L 500.2500, L501.9985 ####[facility] [address] [place], [address] Glucose [Mass/Vol] 185 mg/dL High 70-99 [facility] Comment on above: Performed By: #### L 500.2500, L501.9985 ####[facility] [address] [place], [address] Potassium [Moles/Vol] 4.2 mmol/L Normal 3.3-5.1 [facility] Comment on above: Result Comment: Hemo lysis present, Results??could be affected. ?? Performed By: #### L 500.2500, L501.9985 ####[facility] [address] [place], [address] Sodium [Moles/Vol] 137 mmol/L Normal 133-145 [facility] Comment on above: Performed By: #### L 500.2500, L501.9985 ####[facility] [address] [place], [address] Urea nitrogen [Mass/Vol] 14 mg/dL Normal 4-19 [facility] Comment on above: Performed By: #### L 500.2500, L501.9985 ####[facility] [address] [place], [address] CNPNon 01-28-2025 [facility] ---- TORI GRAY ([id number]) 1980 F Date Time Provider Department 01/28/25 [facility] GRIMES [facility] During your visit today, we recorded the following information about you: Krystle Barnett, RN 01/28/2025 4:54 PM Signed Prior Authorization Documentation Prior authorization requested for the following medication: Medication: Ozempic 1 mg (all though PA done in Aug 2024 and approved until Aug 2025 this needs PA due to dose change). Provider: [employer] Name: [employer] Phone number: [phone] Patient ID number: [id number] Pharmacy Name: [facility] Telephone number: [phone] Evon Philippe LPN 01/28/2025 4:56 PM Signed Electronic PA requested. Evon Philippe LPN 01/28/2025 4:58 PM Signed Unable to complete electronically. Will try on covermymeds Evon Philippe LPN 01/29/2025 9:07 AM Signed [employer] RESPONSE. [employer] does not handle this review. Please visit [employer] to start a prior authorization or fax information to [phone]. Please include all supporting chart notes. You may contact [employer] at [phone]. WILL FAX PA REQUEST TO NUMBER PROVIDED. 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 Allergies As of Date: 01/28/2025 Noted [...] tablet by mouth once daily. - Ipratropium Olney (ATROVENT) 21 mcg (0.03 %) nasal spray [...] Each by INTRAUTERINE route as directed. - Valentine-3 Fatty Acids (FISH OIL) 500 mg cap Take 1 capsule by mouth once daily. - blood sugar diagnostic (BLOOD GLUCOSE TEST) test strip Test blood sugar(s) 1 times daily. Dx: Type 2 DM - Controlled E11.9 Insulin: Yes - Lancets lancets Test blood sugar(s) 1 times daily. Dx: Type 2 DM - Controlled E11.9 Insulin: No - Vxruwgzs-Ky-Nef-Fe- FA tab Take 1 tablet by mouth [...] DERMATOFIBROMA///BE N (more content not included)... Normal [facility] Telephone (FAMPWS) ---- ISAACROSIECHELSEY Love ([id number]) 1980 F Date Time Provider Department 01/28/25 [...] tablet by mouth once daily. - Ipratropium Olney (ATROVENT) 21 mcg (0.03 %) nasal spray [...] Each by INTRAUTERINE route as directed. - Valentine-3 Fatty Acids (FISH OIL) 500 mg cap Take 1 capsule by mouth once daily. - blood sugar diagnostic (BLOOD GLUCOSE TEST) test strip Test blood sugar(s) 1 times daily. Dx: Type 2 DM - Controlled E11.9 Insulin: Yes - Lancets lancets Test blood sugar(s) 1 times daily. Dx: Type 2 DM - Controlled E11.9 Insulin: No - Qehyudjv-Fn-Uab-Fe- FA tab Take 1 tablet by mouth [...] 02/16/2010 Routine general medical examination at a regional medical center*12/06/2012 02/22/2014 Anxiety [F41.9] 06/07/2014 Type [...] R19.7] 11/22/202109/04 (more content not included)... Normal [facility] Carbon dioxide, total [Moles /volume] in Central venous bloodOrdered By: Ivette Grimes on 01-28-2025 CO2 [Moles/Vol] 21.2 mmol/L 21.0-32.0 [facility] Chloride assayOrdered By: Regina Grimes on 01-28-2025 Chloride [Moles/Vol] 105 mmol/L 98-108 [facility] GFR/1.73 sq M.predicted jamari g non-blacks MDRD (S/P/Bld) [Vol rate/Area]Ordered By: Ivette Grimes on 01-28-2025 Estimated GFR (MDRD) Non-Af Amer 98 >60 [facility] Comment on above: mL/min/1.73m2 CKD-EP I Creatinine Equation (2020) Glomerular filtration rate ( GFR) estimation/1.73 sq m using serum, plasma, or whole bOrdered By: Ivette Grimes on 01-28-2025 GFR/1.73 sq M.predicted among non-blacks MDRD (S/P/Bld) [Vol rate/Area] 98 mL/min/{1.73_m2} >60 [facility] Comment on above: mL/min/1.73m2 CKD-EP I Creatinine Equation (2020) HBA1C (OUTSIDE)on 01-28-2025 [facility] Hemoglobin A1c percentageon 01-28-2025 HbA1c (Bld) [Mass fraction] 6.6 % Normal <=5.6 [facility] Comment on above: Performed By: #### L 500.2500, L501.9985 ####[facility] [address] [place], [place], [id number] Potassium (Unsp spec) [Mass/ Vol]Ordered By: Ivette Grimes on 01-28-2025 Potassium [Moles/Vol] 4.2 mmol/L 3.3-5.1 [facility] Comment on above: Hemolysis present, R esults could be affected. Potassium measurement (mass/ volume)Ordered By: Ivette Grimes on 01-28-2025 Potassium (Unsp spec) [Mass/Vol] 4.2 mmol/L 3.3-5.1 [facility] Comment on above: Hemolysis present, R esults could be affected. Serum creatinine measurement (mass/volume)Ordered By: Ivette Grimes on 01-28-2025 Creatinine [Mass/Vol] 0.77 mg/dL 0.70-1.20 [facility] Serum glucose measurement (m ass/volume)Ordered By: Ivette Grimes on 01-28-2025 Glucose [Mass/Vol] 185 mg/dL High 70-99 [facility] Serum or plasma calcium sharron urement (mass/volume)Ordered By: Ivette Grimes on 01-28-2025 Calcium [Mass/Vol] 9.0 mg/dL 7.6-11.0 [facility] Serum or plasma urea nitroge n measurement (mass/volume)Ordered By: Ivette Grimes on 01-28-2025 Urea nitrogen [Mass/Vol] 14 mg/dL 4-19 [facility] Sodium levelOrdered By: Reji Grimes on 01-28-2025 Sodium [Moles/Vol] 137 mmol/L 133-145 [facility] CNOVon 01-22-2025 CNOV [facility] ---- TORI GRAY ([id number]) 1980 F Date Time Provider Department 01/22/25 3:40 PM [facility] During your visit today, we recorded [...] 1 tablet by mouth once daily. Ipratropium Olney (ATROVENT) 21 mcg (0.03 %) nasal spray [...] 1 Each by INTRAUTERINE route as directed. Valentine-3 Fatty Acids (FISH OIL) 500 mg cap Take 1 capsule by mouth once daily. blood sugar diagnostic (BLOOD GLUCOSE TEST) test strip Test blood sugar(s) 1 times daily. Dx: Type 2 DM - Controlled E11.9 Insulin: Yes Lancets lancets Test blood sugar(s) 1 times daily. Dx: Type 2 DM - Controlled E11.9 Insulin: No Lppuxypd-Rh-Xky-Fe- FA tab Take 1 tablet by mouth [...] Age of Onset Alcohol/Drug Mother Heart Father ND Cancer Father PANCREATIC CANCER Diabetes Father Coronary [...] Controlled ( (more content not included)... [facility] (FAMPWS[facility] ---- ISAACTORI Ivan ([id number]) 1980 F Date Time Provider Department 12/21/24 JENNI MARTÍNEZ [facility] During your visit today, we recorded the following information about you: Jenni Martínez APRN.STEP DOWN SPECIALIST 12/21/2024 2:36 PM Signed Can you please [...] tablet by mouth once daily. - Ipratropium Olney (ATROVENT) 21 mcg (0.03 %) nasal spray [...] Each by INTRAUTERINE route as directed. - Valentine-3 Fatty Acids (FISH OIL) 500 mg cap Take 1 capsule by mouth once daily. - blood sugar diagnostic (BLOOD GLUCOSE TEST) test strip Test blood sugar(s) 1 times daily. Dx: Type 2 DM - Controlled E11.9 Insulin: Yes - Lancets lancets Test blood sugar(s) 1 times daily. Dx: Type 2 DM - Controlled E11.9 Insulin: No - Jhjynbml-Gy-Ukv-Fe- FA tab Take 1 tablet by mouth [...] 05/06/2009 01/23/2010 Routine general medical examination at [facility]*01/23/2010 12/06/2012 Class: Chronic Routine gynecological examination [Z01.419] 01/23/2010 02/22/2014 Class: Chronic Morbid Obesity [E66.01] 01/23/2010 Lumbar Disc Disorder [M51.9] 02/16/2010 Routine general medical examination at [facility]*12/06/2012 02/22/2014 Anxiety [F41.9] 06/07/2014 Type 2 diabetes mellitus with microalbuminuria,*0 07/04/2018 Fatty liver [K76.0] 07/21/2018 08/05/2024 LETITIA (obstructive sleep apnea) [G47.33] 07/21/2018 Microalbuminuria [R80.9] 09/30/2018 09/04/2022 Obesity, Class III, BMI >= 40 [E66.01] 11/26/2019 09/04/2022 (more content not included)... Normal [facility] Albumin to globulin ratioOrd ered By: Jenni Martínez on 12-11-2024 Albumin/Globulin [Mass ratio] 0.8 {ratio} Low 0.9-2.4 [facility] Bilirubin, totalOrdered By: Jenni Martínez on 12-11-2024 Bilirubin [Mass/Vol] 0.80 mg/dL 0.20-1.00 [facility] Comment on above: For patients on eltr ombopag therapy, use of Dimension [place] TBIL is not recommended. Blood urea nitrogen (BUN)/cr eatinine ratioOrdered By: Jenni Martínez on 12-11-2024 Urea nitrogen/Creatinine [Mass ratio] 11.5 mg/mg 10-20 [facility] CNOVon 12-11-2024 CNOV Office Visit (FAMPWS) ---- TORI GRAY ([id number]) 1980 F Date Time Provider Department 12/11/24 11:00 AM [facility] During your visit today, we recorded the following information about you: Temperature Pulse Respiration Blood pressure 97.8 degrees 72/minute 16/minute 138/74 Weight 125.7 kg Jenni Martínez APRN.STEP DOWN SPECIALIST 12/11/2024 12:26 PM Signed This is a [...] 1 tablet by mouth once daily. Ipratropium Olney (ATROVENT) 21 mcg (0.03 %) nasal spray [...] 1 Each by INTRAUTERINE route as directed. Valentine-3 Fatty Acids (FISH OIL) 500 mg cap Take 1 capsule by mouth once daily. blood sugar diagnostic (BLOOD GLUCOSE TEST) test strip Test blood sugar(s) 1 times daily. Dx: Type 2 DM - Controlled E11.9 Insulin: Yes Lancets lancets Test blood sugar(s) 1 times daily. Dx: Type 2 DM - Controlled E11.9 Insulin: No Nldoohjm-Hp-Fsc-Fe- FA tab Take 1 tablet by mouth once daily. No current facility-administer ed medications for this visit. FAMILY HISTORY Problem Relation Age of Onset Alcohol/Drug Mother Heart Father ND Cancer Father PANCREATIC CANCER Diabetes Father Coronary [...] NECK: Negat (more content not included)... Normal [facility] Hany 12-11-2024 GABRIELAN Telephone (FAMPWS) ---- TORI GRAY ([id number]) 1980 F Date Time Provider Department 12/11/24 IVETTE GRIMES During your visit today, we recorded the following information about you: Brittney Meredith RN 12/11/2024 8:23 AM Signed Patient calling to make appt for evaluation of respiratory sx's that began approx 4 weeks ago. Pt states she feels she may have bronchitis or pneumonia. States she was at [facility] ER last month due to dizziness, vision [...] tablet by mouth once daily. - Ipratropium [place] (ATROVENT) 21 mcg (0.03 %) nasal spray [...] Each by INTRAUTERINE route as directed. - Valentine-3 Fatty Acids (FISH OIL) 500 mg cap Take 1 capsule by mouth once daily. - blood sugar diagnostic (BLOOD GLUCOSE TEST) test strip Test blood sugar(s) 1 times daily. Dx: Type 2 DM - Controlled E11.9 Insulin: Yes - Lancets lancets Test blood sugar(s) 1 times daily. Dx: Type 2 DM - Controlled E11.9 Insulin: No - Ejjwowci-Yn-Uxv-Fe- FA tab Take 1 tablet by mouth [...] 01/23/2010 Routine general medical examination at a [facility]*01/23/2010 12/06/2012 Class: Chronic Routine gynecological examination [Z01.419] 01/23/2010 02/22/2014 Class: Chronic Morbid Obesity [E66.01] 01/23/2010 Lumbar Disc Disorder [M51.9] 02/16/2010 Routine general medical examination at [facility]*12/06/2012 02/22/2014 Anxiety [F41.9] 06/07/2014 Type 2 diabetes mellitus with microalbuminuria,*0 07/04/2018 Fatty liver [K76.0] 07/21/2018 08/05/20 (more content not included)... Normal [facility] Telephone (FAMPWS) ---- TORI GRAY ([id number]) 1980 F Date Time Provider Department 12/11/24 JENNI MARTÍNEZ During your visit today, we recorded the following information about you: Jenni Martínez APRN.CNP 12/11/2024 2:18 PM Signed Can you please call the patient and let her know that I am still waiting for x-ray results from [facility]. I went ahead and sent in a [...] tablet by mouth once daily. - Ipratropium [place] (ATROVENT) 21 mcg (0.03 %) nasal spray [...] Each by INTRAUTERINE route as directed. - Valentine-3 Fatty Acids (FISH OIL) 500 mg cap Take 1 capsule by mouth once daily. - blood sugar diagnostic (BLOOD GLUCOSE TEST) test strip Test blood sugar(s) 1 times daily. Dx: Type 2 DM - Controlled E11.9 Insulin: Yes - Lancets lancets Test blood sugar(s) 1 times daily. Dx: Type 2 DM - Controlled E11.9 Insulin: No - Rwfjphad-Iq-Xwa-Fe- FA tab Take 1 tablet by mouth [...] SACROILIITIS [ (more content not included)... Normal [facility] Carbon dioxide measurementOr dered By: Jenni Martínez on 12-11-2024 CO2 [Moles/Vol] 23.0 mmol/L 21.0-32.0 [facility] Chest PA and Lateralon 12-11 Chest PA and Lateral [facility] Imaging Services [address] [place], [place] [id number] Chest PA and Lateral MR#: [id number] Acct: [id number] Name: GRAYTORI Rep #: [id number] : 1980 F 44 From: Sammy Gay MD PCP: Dr. Ivette Grimes MD Status: REG CLI Study: Chest PA and Lateral Date of Exam: 12/11/24 Exam# [id number] Ordering Dr: Jenni Martínez MACHINE JOINT CUTTER-C EXAM: XR Chest, 2 Views CLINICAL INDICATION: TECHNIQUE: Frontal and lateral views of the chest. COMPARISON: No relevant prior studies available. FINDINGS: LUNGS AND PLEURAL SPACES: Unremarkable. No consolidation. No pneumothorax. HEART: Unremarkable. No cardiomegaly. MEDIASTINUM: Unremarkable. Normal mediastinal contour. BONES/JOINTS: Unremarkable. No acute fracture. RAD/Chest PA and Lateral IMPRESSION: No acute cardiopulmonary process. Reading Location: [facility] CC: MACHINE JOINT CUTTER-Mireya Martínez; Dr. Ivette Grimes MD Accounting Machine Servicer: Signed Normal [facility] Chloride measurementOrdered By: Jenni Martínez on 12-11-2024 Chloride [Moles/Vol] 107 mmol/L 98-107 [facility] Comprehensive Metabolic Prof ilon 12-11-2024 Albumin [Mass/Vol] 3.7 g/dL Normal 3.2-5.0 [facility] Comment on above: Performed By: #### L 400.7600 #### [facility] [address] [place], [address] Albumin/Globulin [Mass ratio] 0.8 {ratio} Low 0.9-2.4 [facility] Comment on above: Performed By: #### L 400.7600 #### [facility] [address] [place], [address] ALK P 84 U/L Normal 45-117 [facility] Comment on above: Performed By: #### L 400.7600 #### [facility] [address] [place], [address] ALT [Catalytic activity/Vol] 53 U/L Normal 13-56 [facility] Comment on above: Performed By: #### L 400.7600 #### [facility] [address] [place], [address] AST [Catalytic activity/Vol] 40 U/L High 15-37 [facility] Comment on above: Performed By: #### L 400.7600 #### [facility] [address] [place], [address] Bilirubin [Mass/Vol] 0.80 mg/dL Normal 0.20-1.00 [facility] Comment on above: Result Comment: For patients on eltrombopag therapy, use of Dimension [place] TBIL is not recommended. Performed By: #### L 400.7600 #### [facility] [address] [place], [address] BUN/CRE 11.5 RATIO Normal 10-20 [facility] Comment on above: Performed By: #### L 400.7600 #### [facility] [address] [place], [address] CA,Total 8.8 mg/dL Normal 8.5-10.1 [facility] Comment on above: Performed By: #### L 400.7600 #### [facility] [address] [place], [address] Chloride [Moles/Vol] 107 mmol/L Normal 98-107 [facility] Comment on above: Performed By: #### L 400.7600 #### [facility] [address] [place], [address] CO2 [Moles/Vol] 23.0 mmol/L Normal 21.0-32.0 [facility] Comment on above: Performed By: #### L 400.7600 #### [facility] [address] [place], [address] Creatinine [Mass/Vol] 0.78 mg/dL Normal 0.55-1.02 [facility] Comment on above: Result Comment: The validity of the calculated GFR GFRAA in patients over 70 years has not been determined. Clinical correlation is essential. Performed By: #### L 400.7600 #### [facility] [address] [place], [address] EST GFR - AA 104 mL/min Normal >60 [facility] Comment on above: Result Comment: Afri can [place]ermudian GFR Calc Performed By: #### L 400.7600 #### [facility] [address] [place], [address] GAP 7 Normal 5-15 [facility] Comment on above: Performed By: #### L 400.7600 #### [facility] [address] [place], [address] GFR/1.73 sq M.predicted among non-blacks MDRD (S/P/Bld) [Vol rate/Area] 86 mL/min/{1.73_m2} Normal >60 [facility] Comment on above: Result Comment: Non- GFR Calc Performed By: #### L 400.7600 #### [facility] [address] [place], [address] Globulin (S) [Mass/Vol] 4.5 g/dL High 2.2-4.2 [facility] Comment on above: Performed By: #### L 400.7600 #### [facility] [address] [place], [address] Glucose [Mass/Vol] 109 mg/dL High 74-106 [facility] Comment on above: Result Comment: Fast ing Glucose result from 100 to 125 mg/dL suggests IMPAIRED HOMEOSTASIS per A.D.A. criteria. Performed By: #### L 400.7600 #### [facility] [address] [place], [address] Potassium [Moles/Vol] 3.9 mmol/L Normal 3.5-5.1 [facility] Comment on above: Performed By: #### L 400.7600 #### [facility] [address] [place], [address] Sodium [Moles/Vol] 137 mmol/L Normal 136-145 [facility] Comment on above: Performed By: #### L 400.7600 #### [facility] [address] [place], [address] T PROT 8.2 g/dL Normal 6.4-8.2 [facility] Comment on above: Performed By: #### L 400.7600 #### [facility] [address] [place], [address] Urea nitrogen [Mass/Vol] 9 mg/dL Normal 7-18 [facility] Comment on above: Performed By: #### L 400.7600 #### [facility] [address] [place], [address] Estimated glomerular filtrat ion rate (GFR) AmericanOrdered By: Jenni Martínez on 12-11-2024 Estimated GFR (MDRD) Amer 104 mL/min >60 [facility] Comment on above: GFR Calc Glomerular filtration rate ( GFR) estimationOrdered By: Jenni Martínez on 12-11-2024 Estimated GFR (MDRD) Non-Af Amer 86 mL/min >60 [facility] Comment on above: Non- GFR Calc GFR/1.73 sq M.predicted among non-blacks MDRD (S/P/Bld) [Vol rate/Area] 86 mL/min/{1.73_m2} >60 [facility] Comment on above: Non- GFR Calc Glucose measurementOrdered B y: Jenni Martínez on 12-11-2024 Glucose [Mass/Vol] 109 mg/dL High 74-106 [facility] Comment on above: Fasting Glucose resu lt from 100 to 125 mg/dL suggests IMPAIRED HOMEOSTASIS per A.D.A. criteria. Laboratory - Chemistry and C hemistry - challengeOrdered By: Jenni Martínez on 12-11-2024 AST [Catalytic activity/Vol] 40 U/L High 15-37 [facility] Potassium measurementOrdered By: Jenni Martínez on 12-11-2024 Potassium [Moles/Vol] 3.9 mmol/L 3.5-5.1 [facility] Serum anion gap measurementO rdered By: Jenni Martínez on 12-11-2024 Anion gap [Moles/Vol] 7 mmol/L 5-15 [facility] Serum globulin measurementOr dered By: Jenni Martínez on 12-11-2024 Globulin (S) [Mass/Vol] 4.5 g/dL High 2.2-4.2 [facility] Serum or plasma alanine arizmendi otransferase (ALT) measurementOrdered By: Jenni Martínez on 12-11-2024 ALT [Catalytic activity/Vol] 53 U/L 13-56 [facility] Serum or plasma albumin sharron urement (mass/volume)Ordered By: Jenni Martínez on 12-11-2024 Albumin [Mass/Vol] 3.7 g/dL 3.2-5.0 [facility] Serum or plasma alkaline toyin sphatase measurementOrdered By: Jenni Martínez on 12-11-2024 ALP [Catalytic activity/Vol] 84 U/L 45-117 [facility] Serum or plasma calcium sharron urement (mass/volume)Ordered By: Jenni Martínez on 12-11-2024 Calcium [Mass/Vol] 8.8 mg/dL 8.5-10.1 [facility] Serum or plasma creatinine m easurement (mass/volume)Ordered By: Jenni Martínez on 12-11-2024 Creatinine [Mass/Vol] 0.78 mg/dL 0.55-1.02 [facility] Comment on above: The validity of the calculated GFR & GFRAA in patients over 70 years has not been determined. Clinical correlation is essential. Serum or plasma urea nitroge n measurement (mass/volume)Ordered By: Jenni Martínez on 12-11-2024 Urea nitrogen [Mass/Vol] 9 mg/dL 7-18 [facility] Sodium levelOrdered By: Ricco Martínez on 12-11-2024 Sodium [Moles/Vol] 137 mmol/L 136-145 [facility] Total proteinOrdered By: John Martínez on 12-11-2024 Protein [Mass/Vol] 8.2 g/dL 6.4-8.2 [facility] Urine Cultureon 11-12-2024 [facility] Mixed Gram Pos Gram Neg Org [place] Count 11,000-25,000 [facility] Mixed contaminants. Submit a new specimen if indicated. Normal [facility] Comment on above: Performed By: #### M 100.1470 ####[facility] [id number] [place], [address] 12 Lead EKGon 11-11-2024 12 Lead EKG [facility] Cardiovascular Services [address] [place] [address] 12 Lead EKG 11/11/24 0649 MR#: [id number] Acct: [id number] Name: TORI GRAY Rep #: [id number] : 1980 44 From: Jackson Keenan MD [...] Abnormal ECG Confirmed by Jackson Keenan ([id number]), sports editor PRISCILA FERRERA ([id number]) on 11/12/2024 10:16:52 AM Referred By: Isabel Confirmed By: Jackson Keenan 11/12/24 1016 Date Jackson Keenan MD CC: Dr. Buddy Hall DO; Dr. Ivette Grimes MD Signed Normal [facility] Absolute neutrophil countOrd ered By: Buddy Hall on 11-11-2024 Neutrophils (Bld) [#/Vol] 6.5 10*3/uL 2.0-7.7 [facility] Albumin to globulin ratioOrd ered By: Buddy Hall on 11-11-2024 Albumin/Globulin [Mass ratio] 0.6 {ratio} Low 0.9-2.4 [facility] Bacteria LM.HPF (Urine sed) [#/Area]Ordered By: Buddy Hall on 11-11-2024 Urine Bacteria RARE /hpf None Seen [facility] Basophil percentageOrdered B y: Buddy Hall on 11-11-2024 Basophils/100 WBC (Bld) 0.4 % 0-1 [facility] Bilirubin Test strip Ql (U)O rdered By: Buddy Hall on 11-11-2024 Bilirubin Ql (U) Negative Negative [facility] Bilirubin, totalOrdered By: Buddy Hall on 11-11-2024 Bilirubin [Mass/Vol] 0.90 mg/dL 0.20-1.00 [facility] Comment on above: For patients on eltr ombopag therapy, use of Dimension [place] TBIL is not recommended. Blood urea nitrogen (BUN)/cr eatinine ratioOrdered By: Buddy Hall on 11-11-2024 Urea nitrogen/Creatinine [Mass ratio] 9.8 mg/mg Low 10-20 [facility] CBC W/Diff, Automatedon Absolute Lymph 0.72 X10 3/uL Low 0.83-4.51 [facility] Comment on above: Performed By: #### L 400.7600 #### [facility] [address] [place], [address] Absolute Neut 6.5 X10 3/uL Normal 2.0-7.7 [facility] Comment on above: Performed By: #### L 400.7600 #### [facility] [address] [place], [address] Basophils/100 WBC (Bld) 0.4 % Normal 0-1 [facility] Comment on above: Performed By: #### L 400.7600 #### [facility] [address] [place], [address] Eosinophils/100 WBC (Bld) 1.2 % Normal 0-5 [facility] Comment on above: Performed By: #### L 400.7600 #### [facility] [address] [place], [address] Erythrocyte distribution width (RBC) [Ratio] 13.7 % Normal 11.6-14.6 [facility] Comment on above: Performed By: #### L 400.7600 #### [facility] [address] [place], [address] Hematocrit (Bld) [Volume fraction] 33.1 % Low 37-47 [facility] Comment on above: Performed By: #### L 400.7600 #### [facility] [address] [place], [address] Hemoglobin (Bld) [Mass/Vol] 11.4 g/dL Low 12.0-15.0 [facility] Comment on above: Performed By: #### L 400.7600 #### [facility] [address] [place], [address] IG% 1.200 High 0.0-0.9 [facility] Comment on above: Result Comment: IG% - Immature Granulocytes (promyelocytes, myelocytes and metamyelocytes) > 1% indicates that a LEFT SHIFT is Present. Performed By: #### L 400.7600 #### [facility] [address] [place], [address] Lymphocytes/100 WBC (Bld) 9.2 % Low 19-41 [facility] Comment on above: Performed By: #### L 400.7600 #### [facility] [address] [place], [address] MCH (RBC) [Entitic mass] 31.8 pg Normal 27.0-32.0 [facility] Comment on above: Performed By: #### L 400.7600 #### [facility] [address] [place], [address] MCHC (RBC) [Mass/Vol] 34.4 g/dL Normal 32-36 [facility] Comment on above: Performed By: #### L 400.7600 #### [facility] [address] [place], [address] MCV (RBC) [Entitic vol] 92.5 fL Normal 81-99 [facility] Comment on above: Performed By: #### L 400.7600 #### [facility] [address] [place], [address] Monocytes/100 WBC (Bld) 4.2 % Normal 0-10 [facility] Comment on above: Performed By: #### L 400.7600 #### [facility] [address] [place], [address] Neutrophils/100 WBC (Bld) 83.8 % High 47-70 [facility] Comment on above: Performed By: #### L 400.7600 #### [facility] [address] [place], [address] Nucleated RBC (Bld) [#/Vol] 0 10*3/uL Normal 0-5 [facility] Comment on above: Performed By: #### L 400.7600 #### [facility] [address] [place], [address] Platelet mean volume (Bld) [Entitic vol] 9.6 fL Normal 6.2-12.0 [facility] Comment on above: Performed By: #### L 400.7600 #### [facility] [address] [place], [address] Platelets (Bld) [#/Vol] 108 10*3/uL Low 150-450 [facility] Comment on above: Performed By: #### L 400.7600 #### [facility] [address] [place], [address] RBC (Bld) [#/Vol] 3.58 10*6/uL Low 4.2-5.4 [facility] Comment on above: Performed By: #### L 400.7600 #### [facility] [address] [place], [address] RDW SD 46.7 fl High 35.1-43.9 [facility] Comment on above: Performed By: #### L 400.7600 #### [facility] [address] [place], [address] WBC (Bld) [#/Vol] 7.8 10*3/uL Normal 4.4-11.0 [facility] Comment on above: Performed By: #### L 400.7600 #### [facility] [address] [place], [address] Carbon dioxide measurementOr dered By: Buddy Hall on 11-11-2024 CO2 [Moles/Vol] 28.0 mmol/L 21.0-32.0 [facility] Chloride measurementOrdered By: Buddy Hall on 11-11-2024 Chloride [Moles/Vol] 102 mmol/L 98-107 [facility] Comprehensive Metabolic Prof ilon 11-11-2024 Albumin [Mass/Vol] 2.6 g/dL Low 3.2-5.0 [facility] Comment on above: Performed By: #### L 400.7600 #### [facility] [address] [place], [address] Albumin/Globulin [Mass ratio] 0.6 {ratio} Low 0.9-2.4 [facility] Comment on above: Performed By: #### L 400.7600 #### [facility] [address] [place], [address] ALK P 79 U/L Normal 45-117 [facility] Comment on above: Performed By: #### L 400.7600 #### [facility] [address] [place], [address] ALT [Catalytic activity/Vol] 29 U/L Normal 13-56 [facility] Comment on above: Performed By: #### L 400.7600 #### [facility] [address] [place], [address] AST [Catalytic activity/Vol] 16 U/L Normal 15-37 [facility] Comment on above: Performed By: #### L 400.7600 #### [facility] [address] [place], [address] Bilirubin [Mass/Vol] 0.90 mg/dL Normal 0.20-1.00 [facility] Comment on above: Result Comment: For patients on eltrombopag therapy, use of Dimension [place] TBIL is not recommended. Performed By: #### L 400.7600 #### [facility] [address] [place], [address] BUN/CRE 9.8 RATIO Low 10-20 [facility] Comment on above: Performed By: #### L 400.7600 #### [facility] [address] [place], [address] CA,Total 8.2 mg/dL Low 8.5-10.1 [facility] Comment on above: Performed By: #### L 400.7600 #### [facility] [address] [place], [address] Chloride [Moles/Vol] 102 mmol/L Normal 98-107 [facility] Comment on above: Performed By: #### L 400.7600 #### [facility] [address] [place], [address] CO2 [Moles/Vol] 28.0 mmol/L Normal 21.0-32.0 [facility] Comment on above: Performed By: #### L 400.7600 #### [facility] [address] [place], [address] Creatinine [Mass/Vol] 1.12 mg/dL High 0.55-1.02 [facility] Comment on above: Result Comment: The validity of the calculated GFR GFRAA in patients over 70 years has not been determined. Clinical correlation is essential. Performed By: #### L 400.7600 #### [facility] [address] [place], [address] ECRCL 92.31 ml/min Normal [facility] Comment on above: Performed By: #### L 400.7600 #### [facility] [address] [place], [address] EST GFR - AA 69 mL/min Normal >60 [facility] Comment on above: Result Comment: Afri can [place] GFR Calc Performed By: #### L 400.7600 #### [facility] [address] [place], [address] GAP 6 Normal 5-15 [facility] Comment on above: Performed By: #### L 400.7600 #### [facility] [address] [place], [address] GFR/1.73 sq M.predicted among non-blacks MDRD (S/P/Bld) [Vol rate/Area] 57 mL/min/{1.73_m2} Low >60 [facility] Comment on above: Result Comment: Non- GFR Calc Performed By: #### L 400.7600 #### [facility] [address] [place], [address] Globulin (S) [Mass/Vol] 4.0 g/dL Normal 2.2-4.2 [facility] Comment on above: Performed By: #### L 400.7600 #### [facility] [address] [place], [address] Glucose [Mass/Vol] 233 mg/dL High 74-106 [facility] Comment on above: Result Comment: Gluc ose result greater than or equal to 200 mg/dL suggests DIABETES MELLITUS per A.D.A. criteria. Performed By: #### L 400.7600 #### [facility] [address] [place], [address] Potassium [Moles/Vol] 2.6 mmol/L Invalid Interpretation Code 3.5-5.1 [facility] Comment on above: Result Comment: Crit ical Result(s) Called at: 07:34:02 11/11/2024 by: ESTEFANIA ALANIZ to Ronald Peñanet. Results read back by same. Performed By: #### L 400.7600 #### [facility] [address] [place], [address] Sodium [Moles/Vol] 135 mmol/L Low 136-145 [facility] Comment on above: Performed By: #### L 400.7600 #### [facility] [address] [place], [address] T PROT 6.6 g/dL Normal 6.4-8.2 [facility] Comment on above: Performed By: #### L 400.7600 #### [facility] [address] [place], [address] Urea nitrogen [Mass/Vol] 11 mg/dL Normal 7-18 [facility] Comment on above: Performed By: #### L 400.7600 #### [facility] [address] [place], [address] Emergency Department Summary on 11-11-2024 Emergency Department Summary [facility] Medical Records Department [address] [place] [address] Emergency Department Summary 11/11/24 MR#: [id number] Acct: [id number] Name: TORI GRAY Rep #: [id number] : 1980 44 From: Buddy Hall DO [...] clarification of this denies any room spinning. [facility] Medical History Abnormal ECG Prolonged Q-T interval [...] you partic (more content not included)... Normal [facility] Eosinophil percentageOrdered By: Buddy Hall on 11-11-2024 Eosinophils/100 WBC (Bld) 1.2 % 0-5 [facility] Epithelial cells.squamous LM Ql (Urine sed)Ordered By: Buddy Hall on 11-11-2024 Epithelial cells.squamous LM.HPF (Urine sed) [#/Area] 0 /[HPF] 5-10 [facility] Erythrocyte distribution wid th ratioOrdered By: Buddy Hall on 11-11-2024 Erythrocyte distribution width (RBC) [Ratio] 13.7 % 11.6-14.6 [facility] Erythrocyte distribution wid th standard deviationOrdered By: Buddy Hall on 11-11-2024 Erythrocyte distribution width (RBC) [Entitic vol] 46.7 fL High 35.1-43.9 [facility] Estimated glomerular filtrat ion rate (GFR) AmericanOrdered By: Buddy Hall on 11-11-2024 Estimated GFR (MDRD) Amer 69 mL/min >60 [facility] Comment on above: GFR Calc Estimation of creatinine deniz aranceOrdered By: Buddy Hall on 11-11-2024 Estimated Creatinine Clearance Calc 92.31 ml/min [facility] Glomerular filtration rate ( GFR) estimationOrdered By: Buddy Hall on 11-11-2024 Estimated GFR (MDRD) Non-Af Amer 57 mL/min Low >60 [facility] Comment on above: Non- GFR Calc Glucose Ql (U)Ordered By: Smith Hall on 11-11-2024 Urine Glucose (UA) Normal mg/dl Normal [facility] Glucose measurementOrdered B y: Buddy Hall on 11-11-2024 Glucose [Mass/Vol] 233 mg/dL High 74-106 [facility] Comment on above: Glucose result great er than or equal to 200 mg/dLsuggests DIABETES MELLITUS per A.D.A. criteria. Hematocrit Auto (Bld) [Volum e fraction]Ordered By: Buddy Hall on 11-11-2024 Hematocrit (Bld) [Volume fraction] 33.1 % Low 37-47 [facility] Hemoglobin measurementOrdere d By: Buddy Hall on 11-11-2024 Hemoglobin (Bld) [Mass/Vol] 11.4 g/dL Low 12.0-15.0 [facility] Immature granulocytes/100 WB C Auto (Bld)Ordered By: Buddy Hall on 11-11-2024 Immature granulocytes/100 WBC (Bld) 1.200 % High 0.0-0.9 [facility] Comment on above: IG% - Immature Granu locytes (promyelocytes, myelocytes and metamyelocytes) > 1% indicates that a LEFT SHIFT is Present. Influenza virus A and B and SARS-CoV-2 (COVID-19) and Respiratory syncytial virus RNAOrdered By: Buddy Hall on 11-11-2024 SARS-CoV-2 (COVID-19) RNA ALLYSON+probe Ql (Unsp spec) [facility] Ketones Test strip Ql (U)Ord ered By: Buddy Hall on 11-11-2024 Ketones Ql (U) 5 mg/dl High Negative [facility] Laboratory - Chemistry and C hemistry - challengeOrdered By: Buddy Hall on 11-11-2024 AST [Catalytic activity/Vol] 16 U/L 15-37 [facility] Lymphocytes Auto (Unsp spec) [#/Vol]Ordered By: Buddy Hall on 11-11-2024 Lymphocytes (Bld) [#/Vol] 0.72 10*3/uL Low 0.83-4.51 [facility] Lymphocytes/100 WBC Auto (Un sp spec)Ordered By: Buddy Hall on 11-11-2024 Lymphocytes/100 WBC (Bld) 9.2 % Low 19-41 [facility] M100.678on 11-11-2024 M100.678 Pending SARS-CoV-2 (COVID 19) Negative INFLUENZA A Negative INFLUENZA B Negative RSV PCR Negative Normal [facility] Comment on above: Performed By: #### M 100.678, L400.0001 ####[facility] [address] [place], [place], [id number] MCV (mean corpuscular volume ) determinationOrdered By: Buddy Hall on 11-11-2024 MCV (RBC) [Entitic vol] 92.5 fL 81-99 [facility] Magnesiumon 11-11-2024 Magnesium [Mass/Vol] 1.7 mg/dL Normal 1.6-2.6 [facility] Comment on above: Performed By: #### L 501.5208 ####[facility] [address] [place], [address] Magnesium measurementOrdered By: Buddy Hall on 11-11-2024 Magnesium [Mass/Vol] 1.7 mg/dL 1.6-2.6 [facility] Mean corpuscular hemoglobin (MCH) determinationOrdered By: Buddy Hall on 11-11-2024 MCH (RBC) [Entitic mass] 31.8 pg 27.0-32.0 [facility] Mean corpuscular hemoglobin concentration (MCHC) determinationOrdered By: Buddy Hall on 11-11-2024 MCHC (RBC) [Mass/Vol] 34.4 g/dL 32-36 [facility] Mean platelet volume determi nationOrdered By: Buddy Hall on 11-11-2024 Platelet mean volume (Bld) [Entitic vol] 9.6 fL 6.2-12.0 [facility] Microscopic analysis of urin e for red blood cells (RBC)Ordered By: Buddy Hall on 11-11-2024 Urine RBC 0-5 SEEN /hpf 0-5 [facility] Monocyte percentageOrdered B y: Buddy Hall on 11-11-2024 Monocytes/100 WBC (Bld) 4.2 % 0-10 [facility] Mucus LM Ql (Urine sed)Order ed By: Buddy Hall on 11-11-2024 Mucus Ql (Urine sed) 0 SEEN /hpf [facility] Neutrophil percentageOrdered By: Buddy Hall on 11-11-2024 Neutrophils/100 WBC (Bld) 83.8 % High 47-70 [facility] Nitrite Test strip Ql (U)Ord ered By: Buddy Hlal on 11-11-2024 Nitrite Ql (U) Negative Negative [facility] Nucleated red blood cell per centageOrdered By: Buddy Hall on 11-11-2024 Nucleated RBC/100 WBC (Bld) [Ratio] 0 % 0-5 [facility] Platelet countOrdered By: Smith Hall on 11-11-2024 Platelets (Bld) [#/Vol] 108 10*3/uL Low 150-450 [facility] Potassium measurementOrdered By: Buddy Hall on 11-11-2024 Potassium [Moles/Vol] 2.6 mmol/L Low 3.5-5.1 [facility] Comment on above: Critical Result(s) C alled at: 07:34:02 11/11/2024 by: ESTEFANIA ALANIZ to Ronald Dumas. Results read back by same. Protein Test strip Ql (U)Ord ered By: Buddy Hall on 11-11-2024 Protein Ql (U) 100 mg/dl High Negative [facility] RBC Auto (Bld) [#/Vol]Ordere d By: Buddy Hall on 11-11-2024 RBC (Bld) [#/Vol] 3.58 10*6/uL Low 4.2-5.4 [facility] Serum anion gap measurementO rdered By: Buddy Hall on 11-11-2024 Anion gap [Moles/Vol] 6 mmol/L 5-15 [facility] Serum globulin measurementOr dered By: Buddy Hall on 11-11-2024 Globulin (S) [Mass/Vol] 4.0 g/dL 2.2-4.2 [facility] Serum or plasma alanine arizmendi otransferase (ALT) measurementOrdered By: Buddy Hall on 11-11-2024 ALT [Catalytic activity/Vol] 29 U/L 13-56 [facility] Serum or plasma albumin sharron urement (mass/volume)Ordered By: Buddy Hall on 11-11-2024 Albumin [Mass/Vol] 2.6 g/dL Low 3.2-5.0 [facility] Serum or plasma alkaline toyin sphatase measurementOrdered By: Buddy Hall on 11-11-2024 ALP [Catalytic activity/Vol] 79 U/L 45-117 [facility] Serum or plasma calcium sharron urement (mass/volume)Ordered By: Buddy Hall on 11-11-2024 Calcium [Mass/Vol] 8.2 mg/dL Low 8.5-10.1 [facility] Serum or plasma creatinine m easurement (mass/volume)Ordered By: Buddy Hall on 11-11-2024 Creatinine [Mass/Vol] 1.12 mg/dL High 0.55-1.02 [facility] Comment on above: The validity of the calculated GFR & GFRAA in patients over 70 years has not been determined. Clinical correlation is essential. Serum or plasma urea nitroge n measurement (mass/volume)Ordered By: Buddy Hall on 11-11-2024 Urea nitrogen [Mass/Vol] 11 mg/dL 7-18 [facility] Sodium levelOrdered By: Ashia Hall on 11-11-2024 Sodium [Moles/Vol] 135 mmol/L Low 136-145 [facility] Total proteinOrdered By: Sim Hall on 11-11-2024 Protein [Mass/Vol] 6.6 g/dL 6.4-8.2 [facility] Urinalysis, Completeon 11-11 BACTERIA RARE Normal None Seen [facility] Comment on above: Order Comment: CLEAN CATCH Performed By: #### M 100.678, L400.0001 ####[facility] [address] [place], [address] EPI,SQUAMOUS 0-5 SEEN Normal 5-10 [facility] Comment on above: Order Comment: CLEAN CATCH Performed By: #### M 100.678, L400.0001 ####[facility] [address] [place], [address] RBC 0-5 SEEN Normal 0-5 [facility] Comment on above: Order Comment: CLEAN CATCH Performed By: #### M 100.678, L400.0001 ####[facility] [address] [place], [address] WBC 10-25 SEEN Normal 0-5 [facility] Comment on above: Order Comment: CLEAN CATCH Performed By: #### M 100.678, L400.0001 ####[facility] [address] [place], [address] Mucus Ql (Urine sed) 0 SEEN Normal [facility] Comment on above: Order Comment: CLEAN CATCH Performed By: #### M 100.678, L400.0001 ####[facility] [address] [place], [address] Urine blood detectionOrdered By: Buddy Hall on 11-11-2024 Urine Occult Blood 150 /ul High Negative [facility] Urine clarityOrdered By: Sim Hall on 11-11-2024 Clarity (U) Sl. Cloudy Clear [facility] Urine color determinationOrd ered By: Buddy Hall on 11-11-2024 Color (U) Yellow Yellow [facility] Urine cultureOrdered By: Sim Hall on 11-11-2024 Bacteria identified Cx Nom (U) Mixed Gram Pos & Gram Neg Org Abnormal [facility] Urine leukocyte esterase det ection by dipstickOrdered By: Buddy Hall on 11-11-2024 Leukocyte esterase Test strip Ql (U) 500 /ul High Negative [facility] Urine pHOrdered By: Buddy samuel on 11-11-2024 pH (U) 6.5 [pH] 5.0 - 8.0 [facility] Urine specific gravity measu rementOrdered By: Buddy Hall on 11-11-2024 Specific gravity (U) [Rel density] 1.010 1.002-1.030 [facility] Urobilinogen Ql (U)Ordered B y: Buddy Hall on 11-11-2024 Urine Urobilinogen Normal mg/dl Normal [facility] White blood cell (WBC) count Ordered By: Buddy Hall on 11-11-2024 WBC (Bld) [#/Vol] 7.8 10*3/uL 4.4-11.0 [facility] White blood cell countOrdere d By: Buddy Hall on 11-11-2024 Urine WBC 10-25 SEEN /hpf 0-5 [facility] Chiropractic Reporton 2023 Chiropractic Report [facility] Chiropractic [facility] [place] [address] OFFICE VISIT Date of Service: 10/19/24 MR#: [id number] Acct: [id number] Name: TORI GRAY Rep #: [id number] : 1980 Provider: CONCEPCIÓN Montgomery Age/Sex: 44/F [place] [facility] Status: Signed Intake Vital Signs 03/09/24 14:53 [...] (Intermediate, Verified 10/19/24 09:22) Hives [facility] Medical History Abnormal ECG Prolonged Q-T interval [...] pain. She reports falling at work at [employer] Saturday. She was setting dishes down when [...] spine nor (more content not included)... Normal [facility] Brain/Head without Contrasto n 10-16-2024 Brain/Head without Contrast [facility] Imaging Services [address] [place] [place], [place] [address] Brain/Head without Contrast MR#: [id number] Acct: [id number] Name: TORI GRAY Rep #: [id number] : 1980 F 44 From: Samir Brito MD PCP: Dr. Ivette Grimes MD Status: REG ER Study: Brain/Head without Contrast Date of Exam: 10/04 01/25 Exam# [id number] Ordering Dr: Angel Ji MACHINE JOINT CUTTER-Mireya -[id number] INDICATION: fall EXAMINATION: CT BRAIN - [...] CC: FADUMO Ji; Dr. Ivette Grimes MD Accounting Machine Servicer: Signed Normal [facility] Emergency Department Summary on 10-16-2024 Emergency Department Summary [facility] Medical Records Department [address] [place] [address] Emergency Department Summary 10/16/24 MR#: [id number] Acct: [id number] Name: TORI GRAY Rep #: [id number] : 1980 44 From: Sam Pearl MD [...] back pain. This will be Worker's Comp. [facility] Medical History Abnormal ECG Prolonged Q-T interval [...] ???Last Taken ???Type blood sugar diagnostic (Blood #04/26/20 Unknown History Glucose Test strips) ipratropium bromide [...] home: Yes (more content not included)... Normal [facility] HIP, UNI W/ Pelvis 2-3 Views on 10-16-2024 HIP, UNI W/ Pelvis 2-3 Views [facility] Imaging Services [address] [place], [place] [id number] HIP, UNI W/ Pelvis 2-3 Views MR#: [id number] Acct: [id number] Name: TORI GRAY Rep #: [id number] : 1980 F 44 From: Samir Brito MD PCP: Dr. Ivette Grimes MD Status: [facility] ER Study: HIP, UNI W/ Pelvis 2-3 Views Date of Exam: Exam# [id number] Ordering Dr: Angel Ji MACHINE JOINT CUTTER-C [id number] INDICATION: right hip EXAMINATION/TECHNIQ UE: X-RAY [...] the pelvis or right hip. Electronically Signed: aSmir Brito MD at 21:27 EST , CC: FADUMO Ji; Dr. Ivette Grimes MD Accounting Machine Servicer: Signed Normal [facility] Lumbar Spine 2 or 3 Viewson 10-16-2024 Lumbar Spine 2 or 3 Views [facility] Imaging Services [address] [place], [place] [address] Lumbar Spine 2 or 3 Views MR#: [id number] Acct: [id number] Name: TORI GRAY Rep #: [id number] : 1980 F 44 From: Samir Brito MD PCP: Dr. Ivette Grimes MD Status: REG ER Study: Lumbar Spine 2 or 3 Views Date of Exam: Exam# [id number] Ordering Dr: Angel Ji MACHINE JOINT CUTTERPrasad -[id number] INDICATION: fall EXAMINATION/TECHNIQ UE: X-RAY - [...] CC: FADUMO Ji; Dr. 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 Ivette Grimes MD Status: REG ER Study: Spine Cervical without Contras Date of Exam: 12/17/23 Exam# [id number] Ordering Dr: Angel Ji -[id number] INDICATION: fall EXAMINATION: CT SPINE - [...] evidence of acute fracture. Electronically Signed: Samir Birto MD at 21:23 EST , CC: FADUMO Ji; Dr. Ivette Grimes MD Accounting Machine Servicer: Signed Normal [facility] Chiropractic Reporton 2023 Chiropractic Report [facility] Chiropractic [address] [place] [address] OFFICE VISIT Date of Service: 09/09/24 MR#: [id number] Acct: [id number] Name: TORI GRAY Rep #: [id number] : 1980 Provider: CONCEPCIÓN Montgomery Age/Sex: 44/F [place] [facility] Status: Signed Intake Vital Signs [...] tightness/achiness bilaterally today, she rates her discomfort /. 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 [facility] Office Visit ([facility]) ---- GRAYTORI ELIAS ([id number]) 1980 F Date Time Provider Department 09/03/24 1:00 PM FATUMA BECKFORD [facility] During your visit today, we recorded the [...] for migraine Informed Consent Consent Obtained: Written [place] Protocol A moment to CARE was completed [...] applicable Written Consent Obtained: Written LOT #: [id number] Expiration Date: Month: Year: 2025 Second vial: LOT #: [id number] Expiration Date: Month: Year: 2025 Injection Sites Left (Units) Left (Sites) Right (Units) Right (Sites) TOTAL (Units) Pharmacy Scheduler 5 1 5 1 10 Procerus Units: [...] for further instructions. Referring Provider: FATUMA BECKFORD [[id number]] Allergies As of Date: 09/03/2024 Noted Allergy Reaction FARXIGA (DAP (more content not included)... Normal [facility] Hany 09-01-2024 [facility] Telephone ([facility]) ---- TORI GRAY ([id number]) 1980 F Date Time Provider Department 09/01/24 FATUMA BECKFORD [facility] During your visit today, we recorded the following information about you: Steph Nieto 09/01/2024 3:33 PM [facility]. Provider will be out of office. 1st attempt to notify pt, sent message. Tala Wilson 09/01/2024 3:54 PM Signed [...] needed for wheezing/shortness of breath. - Ipratropium Olney (ATROVENT) 21 mcg (0.03 %) nasal spray [...] Each by INTRAUTERINE route as directed. - Valentine-3 Fatty Acids (FISH OIL) 500 mg cap Take 1 capsule by mouth once daily. - blood sugar diagnostic (BLOOD GLUCOSE TEST) test strip Test blood sugar(s) 1 times daily. Dx: Type 2 DM - Controlled E11.9 Insulin: Yes - Lancets lancets Test blood sugar(s) 1 times daily. Dx: Type 2 DM - Controlled E11.9 Insulin: No - Vmijnwok-Zb-Zgn-Fe- FA tab Take 1 tablet by mouth [...] 01/23/2010 Routine general medical examination at a regional medical center*01/23/2010 12/06/2012 Class: Chronic Routine gynecological examination [Z01.419] 01/23/2010 02/22/2014 Class: Chronic Morbid Obesity [E66.01] 01/23/2010 Lumbar Disc Disorder [M51.9] 02/16/2010 Routine general medical examination at a regional medical center*12/06/2012 02/22/2014 Anxiety [F41.9] 06/07/2014 Type [...] 08/16/2022 Fall (more content not included)... Normal [facility] Telephone ([facility]) ---- TORI GRAY ([id number]) 1980 F Date Time Provider Department 09/01/24 FATUMA BECKFORD [facility] During your visit today, we recorded the [...] needed for wheezing/shortness of breath. - Ipratropium Olney (ATROVENT) 21 mcg (0.03 %) nasal spray [...] Each by INTRAUTERINE route as directed. - Valentine-3 Fatty Acids (FISH OIL) 500 mg cap Take 1 capsule by mouth once daily. - blood sugar diagnostic (BLOOD GLUCOSE TEST) test strip Test blood sugar(s) 1 times daily. Dx: Type 2 DM - Controlled E11.9 Insulin: Yes - Lancets lancets Test blood sugar(s) 1 times daily. Dx: Type 2 DM - Controlled E11.9 Insulin: No - Xuhsguha-Um-Cup-Fe- FA tab Take 1 tablet by mouth [...] 02/16/2010 Routine general medical examination at a regional medical center*12/06/2012 02/22/2014 Anxiety [F41.9] 06/07/2014 Type [...] mellitus [Z86. (more content not included)... Normal [facility] Chiropractic Reporton 2023 Chiropractic Report [facility] Chiropractic [facility] [place] [address] OFFICE VISIT Date of Service: 08/25/24 MR#: [id number] Acct: [id number] Name: TORI GRAY Rep #: [id number] : 1980 Provider: CONCEPCIÓN Montgomery Age/Sex: 44/F [place] [facility] Status: Signed Intake Vital Signs 03/09/24 14:53 Height 5 ft 7 in Intake Visit Reasons: Back pain Chief Complaint: low Back pain/neck pain Is patient in pain?: Yes Pain scale (1-10): 7 Allergies Corticosteroids (Glucocorticoids) (steroids) Allergy (Verified 08/25/24 09:29) Hives lidocaine Adverse Reaction (Intermediate, Verified 08/25/24 09:29) Hives [facility] Medical History Abnormal ECG Prolonged Q-T interval [...] L5 a (more content not included)... Normal [facility] Chiropractic Reporton 2023 Chiropractic Report [facility] Chiropractic [address] [place] [address] OFFICE VISIT Date of Service: 08/13/24 MR#: [id number] Acct: [id number] Name: TORI GRAY Rep #: [id number] : 1980 Provider: CONCEPCIÓN Mccarty Do ssi Age/Sex: 44/F Location[place] [facility] Status: Signed Intake Vital Signs 03/09/24 14:53 [...] thig (more content not included)... [facility] 08-11-2024 [facility] Telephone ([facility]) ---- TORI GRAY ([id number]) 1980 F Date Time Provider Department 08/11/24 FATUMA BECKFORD [facility] During your visit today, we recorded the [...] needed for wheezing/shortness of breath. - Ipratropium Olney (ATROVENT) 21 mcg (0.03 %) nasal spray [...] Each by INTRAUTERINE route as directed. - Valentine-3 Fatty Acids (FISH OIL) 500 mg cap Take 1 capsule by mouth once daily. - blood sugar diagnostic (BLOOD GLUCOSE TEST) test strip Test blood sugar(s) 1 times daily. Dx: Type 2 DM - Controlled E11.9 Insulin: Yes - Lancets lancets Test blood sugar(s) 1 times daily. Dx: Type 2 DM - Controlled E11.9 Insulin: No - Jleffdos-Mf-Jll-Fe- FA tab Take 1 tablet by mouth [...] 05/06/2009 01/23/2010 Routine general medical examination at [facility]*01/23/2010 12/06/2012 Class: Chronic Routine gynecological examination [Z01.419] 01/23/2010 02/22/2014 Class: Chronic Morbid Obesity [E66.01] 01/23/2010 Lumbar Disc Disorder [M51.9] 02/16/2010 Routine general medical examination at [facility]*12/06/2012 02/22/2014 Anxiety [F41.9] 06/07/2014 Type 2 [...] 09/04/2022 11 (more content not included)... Normal [facility]on 08-05-2024 [facility] Office Visit ([facility]) ---- TORI GRAY ([id number]) 1980 F Date Time Provider Department 08/05/24 [...] as physical. Reviewed labs recently done at [facility]. A1c was 6.7. ldl was 105. Hdl [...] as needed for wheezing/shortness of breath. Ipratropium Olney (ATROVENT) 21 mcg (0.03 %) nasal spray [...] 1 Each by INTRAUTERINE route as directed. Valentine-3 Fatty Acids (FISH OIL) 500 mg cap Take 1 capsule by mouth once daily. blood sugar diagnostic (BLOOD GLUCOSE TEST) test strip Test blood sugar(s) 1 times daily. Dx: Type 2 DM - Controlled E11.9 Insulin: Yes Lancets lancets Test blood sugar(s) 1 times daily. Dx: Type 2 DM - Controlled E11.9 Insulin: No Fbkmxfpf-Qt-Nnt-Fe- FA tab Take 1 tablet by mouth [...] Age of Onset Alcohol/Drug Mother Heart Father ND Cancer Father PANCREATIC CANCER Diabetes Father Coronary [...] surgical h (more content not included)... Normal [facility] TORI G[facility] ([id number]) 1980 F Date Time Provider Department 08/05/24 [facility] During your visit today, we recorded the following information about you: Dennise Robles MA 08/06/2024 10:44 AM Signed APPROVAL. [facility] # [id number] VALIDITY DATES 08/06/24-08/05/25 Pharmacy informed. Dennise Robles MA Allergies As of Date: 08/05/2024 Noted Allergy Reaction FARXIGA (DAPAGLIFLOZIN) 08/05/2024 8 - GI Upset LIDOCAINE 12/24/2019 4 - Hives METFORMIN 08/05/2024 8 - GI Upset STEROIDS (BETAMETHASONE DIPROPION* 2 4 - Hives Date Reviewed: 08/05/2024 Reviewed by: Nirmala Storey LPN - Fully Assessed Reason for Visit: Insurance Authorization [[id number]] Cmt: Ozempic Prescriptions as of 08/06/2024 - [...] needed for wheezing/shortness of breath. - Ipratropium Olney (ATROVENT) 21 mcg (0.03 %) nasal spray [...] Each by INTRAUTERINE route as directed. - Valentine-3 Fatty Acids (FISH OIL) 500 mg cap Take 1 capsule by mouth once daily. - blood sugar diagnostic (BLOOD GLUCOSE TEST) test strip Test blood sugar(s) 1 times daily. Dx: Type 2 DM - Controlled E11.9 Insulin: Yes - Lancets lancets Test blood sugar(s) 1 times daily. Dx: Type 2 DM - Controlled E11.9 Insulin: No - Pvcwmsyi-Vm-Hlq-Fe- FA tab Take 1 tablet by mouth [...] 01/23/2010 Routine general medical examination at a regional medical center*01/23/2010 12/06/2012 Class: Chronic Routine gynecological examination [Z01.419] 01/23/2010 02/22/2014 Class: Chronic Morbid Obesity [E66.01] 01/23/2010 Lumbar Disc Disorder [M51.9] 02/16/2010 Routine general medical examination at [facility]*12/06/2012 02/22/2014 Anxiety [F41.9] 06/07/2014 Type 2 [...] 09/04/2022 11 (more content not included)... Normal [facility] Chiropractic Reporton 2023 Chiropractic Report [facility] Chiropractic [address] [place] [address] OFFICE VISIT Date of Service: 07/30/24 MR#: [id number] Acct: [id number] Name: TORI GRAY Rep #: [id number] : 1980 Provider: CONCEPCIÓN Montgomery Age/Sex: 44/F [place] [facility] Status: Signed Intake Vital Signs 03/09/24 14:53 Height 5 ft 7 in Intake Visit Reasons: Back pain Chief Complaint: low Back pain Is patient in pain?: Yes Pain scale (1-10): 8 Allergies Corticosteroids (Glucocorticoids) (steroids) Allergy (Verified 07/30/24 10:58) Hives lidocaine Adverse Reaction (Intermediate, Verified 07/30/24 10:58) Hives [facility] Medical History Abnormal ECG Prolonged Q-T interval [...] L4, Thoracic (more content not included)... Normal [facility] Chest PA and Lateralon 07-22 Chest PA and Lateral [facility] Services [address], [place] [address] Chest PA and Lateral MR#: [id number] Acct: [id number] Name: TORI GRAY Rep #: [id number] : 1980 F 44 From: Gregorio barry MD PCP: Dr. Ivette Grimes MD Status: [facility] Study: Chest PA and Lateral Date of Exam: 07/22/24 Exam# [id number] Ordering Dr: Ivette Grimes MD -[id number] STUDY: X-RAY CHEST REASON FOR EXAM: [...] EDT , CC: Dr. Ivette Grimes MD Accounting Machine Servicer: Signed Normal [facility] 07-21-2024 [facility] Telephone (FAMWS) ---- TORI GRAY ([id number]) 1980 F Date Time Provider Department 07/21/24 IVETTE GRIMES [facility] During your visit today, we recorded [...] notified. Requested to have order faxed to [facility]. Order faxed. Ingrid Salmon MA Allergies As of Date: 07/21/2024 Noted Allergy Reaction LIDOCAINE 12/24/2019 4 - Hives STEROIDS (BETAMETHASONE DIPROPION* 2 4 - Hives Date Reviewed: 07/03/2024 Reviewed by: Nirmala Storey LPN - Fully Assessed Reason for Visit: Orders [681] Primary Visit Diagnosis:Cough, unspecified type [R05.9] Order(s):XR CHEST 2V FRONTAL/LAT [4690355] Order #: [id number] FUTURE Prescriptions as of 07/21/2024 - dapagliflozin [...] needed for wheezing/shortness of breath. - Ipratropium [place] (ATROVENT) 21 mcg (0.03 %) nasal spray [...] Each by INTRAUTERINE route as directed. - Valentine-3 Fatty Acids (FISH OIL) 500 mg cap Take 1 capsule by mouth once daily. - blood sugar diagnostic (BLOOD GLUCOSE TEST) test strip Test blood sugar(s) 1 times daily. Dx: Type 2 DM - Controlled E11.9 Insulin: Yes - Lancets lancets Test blood sugar(s) 1 times daily. Dx: Type 2 DM - Controlled E11.9 Insulin: No - Inlkjcpp-Xf-Yvr-Fe- FA tab Take 1 tablet by mouth [...] 01/23/2010 Routine general medical examination at a regional medical center*01/23/2010 12/06/2012 Class: Chronic Routine gynecological examination [Z01.419] 01/23/2010 02/22/2014 Class: Chronic Morbid Obesity [E66.01] 01/23/2010 Lumbar Disc Disorder [M51.9] 02/16/2010 Routine general medical examination at [facility]*12/06/2012 02/22/2014 Anxiety [F41.9] 06/07/2014 Type 2 [...] lumbar intervertebr (more content not included)... Normal [facility] Chiropractic Reporton 2023 Chiropractic Report [facility] Chiropractic [address] [place] [address] OFFICE VISIT Date of Service: 07/16/24 MR#: [id number] Acct: [id number] Name: TORI GRAY Rep #: [id number] : 1980 Provider: CONCEPCIÓN Montgomery Age/Sex: 44/F [place] [facility] Status: Signed Intake Vital Signs 03/09/24 14:53 Height 5 ft 7 in Intake Visit Reasons: Back pain Chief Complaint: low Back pain Is patient in pain?: Yes Pain scale (1-10): 5 Allergies Corticosteroids (Glucocorticoids) (steroids) Allergy (Verified 07/16/24 11:27) Hives lidocaine Adverse Reaction (Intermediate, Verified 07/16/24 11:27) Hives [facility] Medical History Abnormal ECG Prolonged Q-T interval [...] work activities. 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 Normal [facility] 07-09-2024 [facility] Telephone (OLGA) ---- TORI GRAY ([id number]) 1980 F Date Time Provider Department 07/09/24 IVETTE GRIMES During your visit today, we [...] long-term current use of insulin ([facility]) [E11.29, R80.9, Z79.4] Order(s):dapagliflo zin propanediol (FARXIGA) [...] needed for wheezing/shortness of breath. - Ipratropium [place] (ATROVENT) 21 mcg (0.03 %) nasal spray [...] Each by INTRAUTERINE route as directed. - Valentine-3 Fatty Acids (FISH OIL) 500 mg cap Take 1 capsule by mouth once daily. - blood sugar diagnostic (BLOOD GLUCOSE TEST) test strip Test blood sugar(s) 1 times daily. Dx: Type 2 DM - Controlled E11.9 Insulin: Yes - Lancets lancets Test blood sugar(s) 1 times daily. Dx: Type 2 DM - Controlled E11.9 Insulin: No - Zijhgiwj-Qu-Hks-Fe- FA tab Take 1 tablet by mouth [...] 01/23/2010 Routine general medical examination at a regional medical center*01/23/2010 12/06/2012 Class: Chronic Routine gynecological examination [Z01.419] 01/23/2010 02/22/2014 Class: Chronic Morbid Obesity [E66.01] 01/23/2010 Lumbar Disc Disorder [M51.9] 02/16/2010 Routine general medical examination at a regional medical center*12/06/2012 02/22/2014 Anxiety [F41.9] 06/07/2014 Typ (more content not included)... [facility] ---- TORI GRAY ([id number]) 1980 F Date Time Provider Department 07/08/24 IVETTE GRIMES [facility] During your visit today, we recorded [...] needed for wheezing/shortness of breath. - Ipratropium [place] (ATROVENT) 21 mcg (0.03 %) nasal spray [...] Each by INTRAUTERINE route as directed. - Valentine-3 Fatty Acids (FISH OIL) 500 mg cap Take 1 capsule by mouth once daily. - blood sugar diagnostic (BLOOD GLUCOSE TEST) test strip Test blood sugar(s) 1 times daily. Dx: Type 2 DM - Controlled E11.9 Insulin: Yes - Lancets lancets Test blood sugar(s) 1 times daily. Dx: Type 2 DM - Controlled E11.9 Insulin: No - Uldrplrl-Fs-Ryz-Fe- FA tab Take 1 tablet by mouth [...] 01/23/2010 Routine general medical examination at a regional medical center*01/23/2010 12/06/2012 Class: Chronic Routine gynecological examination [Z01.419] 01/23/2010 02/22/2014 Class: Chronic Morbid Obesity [E66.01] 01/23/2010 Lumbar Disc Disorder [M51.9] 02/16/2010 Routine general medical examination at [facility]*12/06/2012 02/22/2014 Anxiety [F41.9] 06/07/2014 Type 2 [...] upper extre (more content not included)... Normal [facility] HBA1C (OUTSIDE)on 07-08-2024 HbA1c (Bld) [Mass fraction] 6.7 % [facility] LIPID PANEL (OUTSIDE)on Cholesterol [Mass/Vol] 195 mg/dL [facility] Cholesterol in HDL [Mass/Vol] 35 mg/dL [facility] Cholesterol in LDL [Mass/Vol] 105 mg/dL [facility] LDL:HDL Ratio [facility] Non-HDL Cholesterol [facility] TC:HDL Ratio [facility] Triglyceride [Mass/Vol] 274 mg/dL C [facility]DL [facility] No Panel Informationon 07-08 [facility] CBC W/Diff, Automatedon - Absolute Lymph 2.74 X10 3/uL Normal 0.83-4.51 [facility] Comment on above: Performed By: #### L 502.0250, L500.4100, L100.0100, L500.4050, L501.9985 #### [facility] [address] [place], [address] Absolute Neut 4.8 X10 3/uL Normal 2.0-7.7 [facility] Comment on above: Performed By: #### L 502.0250, L500.4100, L100.0100, L500.4050, L501.9985 #### [facility] [address] [place], [address] Basophils/100 WBC (Bld) 0.8 % Normal 0-1 [facility] Comment on above: Performed By: #### L 502.0250, L500.4100, L100.0100, L500.4050, L501.9985 #### [facility] [address] [place], [address] Eosinophils/100 WBC (Bld) 2.6 % Normal 0-5 [facility] Comment on above: Performed By: #### L 502.0250, L500.4100, L100.0100, L500.4050, L501.9985 #### [facility] [address] [place], [address] Erythrocyte distribution width (RBC) [Ratio] 14.0 % Normal 11.6-14.6 [facility] Comment on above: Performed By: #### L 502.0250, L500.4100, L100.0100, L500.4050, L501.9985 #### [facility] [address] [place], [address] Hematocrit (Bld) [Volume fraction] 39.0 % Normal 37-47 [facility] Comment on above: Performed By: #### L 502.0250, L500.4100, L100.0100, L500.4050, L501.9985 #### [facility] [address] [place], [address] Hemoglobin (Bld) [Mass/Vol] 13.1 g/dL Normal 12.0-15.0 [facility] Comment on above: Performed By: #### L 502.0250, L500.4100, L100.0100, L500.4050, L501.9985 #### [facility] [address] [place], [address] IG% 2.300 High 0.0-0.9 [facility] Comment on above: Result Comment: IG% - Immature Granulocytes (promyelocytes, myelocytes and metamyelocytes) > 1% indicates that a LEFT SHIFT is Present. Performed By: #### L 502.0250, L500.4100, L100.0100, L500.4050, L501.9985 #### [facility] [address] [place], [address] Lymphocytes/100 WBC (Bld) 32.5 % Normal 19-41 [facility] Comment on above: Performed By: #### L 502.0250, L500.4100, L100.0100, L500.4050, L501.9985 #### [facility] [address] [place], [address] MCH (RBC) [Entitic mass] 31.2 pg Normal 27.0-32.0 [facility] Comment on above: Performed By: #### L 502.0250, L500.4100, L100.0100, L500.4050, L501.9985 #### [facility] [address] [place], [address] MCHC (RBC) [Mass/Vol] 33.6 g/dL Normal 32-36 [facility] Comment on above: Performed By: #### L 502.0250, L500.4100, L100.0100, L500.4050, L501.9985 #### [facility] [address] [place], [address] MCV (RBC) [Entitic vol] 92.9 fL Normal 81-99 [facility] Comment on above: Performed By: #### L 502.0250, L500.4100, L100.0100, L500.4050, L501.9985 #### [facility] [address] [place], [address] Monocytes/100 WBC (Bld) 5.1 % Normal 0-10 [facility] Comment on above: Performed By: #### L 502.0250, L500.4100, L100.0100, L500.4050, L501.9985 #### [facility] [address] [place], [address] Neutrophils/100 WBC (Bld) 56.7 % Normal 47-70 [facility] Comment on above: Performed By: #### L 502.0250, L500.4100, L100.0100, L500.4050, L501.9985 #### [facility] [address] [place], [address] Nucleated RBC (Bld) [#/Vol] 0 10*3/uL Normal 0-5 [facility] Comment on above: Performed By: #### L 502.0250, L500.4100, L100.0100, L500.4050, L501.9985 #### [facility] [address] [place], [address] Platelet mean volume (Bld) [Entitic vol] 9.2 fL Normal 6.2-12.0 [facility] Comment on above: Performed By: #### L 502.0250, L500.4100, L100.0100, L500.4050, L501.9985 #### [facility] [address] [place], [address] Platelets (Bld) [#/Vol] 196 10*3/uL Normal 150-450 [facility] Comment on above: Performed By: #### L 502.0250, L500.4100, L100.0100, L500.4050, L501.9985 #### [facility] [address] [place], [address] RBC (Bld) [#/Vol] 4.20 10*6/uL Normal 4.2-5.4 [facility] Comment on above: Performed By: #### L 502.0250, L500.4100, L100.0100, L500.4050, L501.9985 #### [facility] [address] [place], [address] RDW SD 47.2 fl High 35.1-43.9 [facility] Comment on above: Performed By: #### L 502.0250, L500.4100, L100.0100, L500.4050, L501.9985 #### [facility] [address] [place], [address] WBC (Bld) [#/Vol] 8.4 10*3/uL Normal 4.4-11.0 [facility] Comment on above: Performed By: #### L 502.0250, L500.4100, L100.0100, L500.4050, L501.9985 #### [facility] [address] [place], [address] Comprehensive Metabolic Prof [facility] 07-04-2024 Albumin [Mass/Vol] 3.6 g/dL Normal 3.2-5.0 [facility] Comment on above: Performed By: #### L 502.0250, L500.4100, L100.0100, L500.4050, L501.9985 #### [facility] [address] [place], [address] Albumin/Globulin [Mass ratio] 0.9 {ratio} Normal 0.9-2.4 [facility] Comment on above: Performed By: #### L 502.0250, L500.4100, L100.0100, L500.4050, L501.9985 #### [facility] [address] [place], [address] ALK P 96 U/L Normal 45-117 [facility] Comment on above: Performed By: #### L 502.0250, L500.4100, L100.0100, L500.4050, L501.9985 #### [facility] [address] [place], [address] ALT [Catalytic activity/Vol] 41 U/L Normal 13-56 [facility] Comment on above: Performed By: #### L 502.0250, L500.4100, L100.0100, L500.4050, L501.9985 #### [facility] [address] [place], [address] AST [Catalytic activity/Vol] 32 U/L Normal 15-37 [facility] Comment on above: Performed By: #### L 502.0250, L500.4100, L100.0100, L500.4050, L501.9985 #### [facility] [address] [place], [address] Bilirubin [Mass/Vol] 0.40 mg/dL Normal 0.20-1.00 [facility] Comment on above: Result Comment: For patients on eltrombopag therapy, use of Dimension [place] TBIL is not recommended. Performed By: #### L 502.0250, L500.4100, L100.0100, L500.4050, L501.9985 #### [facility] [address] [place], [address] BUN/CRE 13.9 RATIO Normal 10-20 [facility] Comment on above: Performed By: #### L 502.0250, L500.4100, L100.0100, L500.4050, L501.9985 #### [facility] [address] [place], [address] CA,Total 8.9 mg/dL Normal 8.5-10.1 [facility] Comment on above: Performed By: #### L 502.0250, L500.4100, L100.0100, L500.4050, L501.9985 #### [facility] [address] [place], [address] Chloride [Moles/Vol] 107 mmol/L Normal 98-107 [facility] Comment on above: Performed By: #### L 502.0250, L500.4100, L100.0100, L500.4050, L501.9985 #### [facility] [address] [place], [address] CO2 [Moles/Vol] 22.0 mmol/L Normal 21.0-32.0 [facility] Comment on above: Performed By: #### L 502.0250, L500.4100, L100.0100, L500.4050, L501.9985 #### [facility] [address] [place], [address] Creatinine [Mass/Vol] 0.79 mg/dL Normal 0.55-1.02 [facility] Comment on above: Result Comment: The validity of the calculated GFR GFRAA in patients over 70 years has not been determined. Clinical correlation is essential. Performed By: #### L 502.0250, L500.4100, L100.0100, L500.4050, L501.9985 #### [facility] [address] [place], [address] EST GFR - AA 103 mL/min Normal >60 [facility] Comment on above: Result Comment: Afri can Bermudian GFR Calc Performed By: #### L 502.0250, L500.4100, L100.0100, L500.4050, L501.9985 #### [facility] [address] [place], [address] GAP 8 Normal 5-15 [facility] Comment on above: Performed By: #### L 502.0250, L500.4100, L100.0100, L500.4050, L501.9985 #### [facility] [address] [place], [address] GFR/1.73 sq M.predicted among non-blacks MDRD (S/P/Bld) [Vol rate/Area] 85 mL/min/{1.73_m2} Normal >60 [facility] Comment on above: Result Comment: Non- GFR Calc Performed By: #### L 502.0250, L500.4100, L100.0100, L500.4050, L501.9985 #### [facility] [address] [place], [address] Globulin (S) [Mass/Vol] 3.9 g/dL Normal 2.2-4.2 [facility] Comment on above: Performed By: #### L 502.0250, L500.4100, L100.0100, L500.4050, L501.9985 #### [facility] [address] [place], [address] Glucose [Mass/Vol] 186 mg/dL High 74-106 [facility] Comment on above: Result Comment: Fast ing Glucose result greater than or equal to 126 mg/dL suggests DIABETES MELLITUS per A.D.A. criteria. Performed By: #### L 502.0250, L500.4100, L100.0100, L500.4050, L501.9985 #### [facility] [address] [place], [address] Potassium [Moles/Vol] 3.8 mmol/L Normal 3.5-5.1 [facility] Comment on above: Performed By: #### L 502.0250, L500.4100, L100.0100, L500.4050, L501.9985 #### [facility] [address] [place], [address] Sodium [Moles/Vol] 137 mmol/L Normal 136-145 [facility] Comment on above: Performed By: #### L 502.0250, L500.4100, L100.0100, L500.4050, L501.9985 #### [facility] [address] [place], [address] T PROT 7.5 g/dL Normal 6.4-8.2 [facility] Comment on above: Performed By: #### L 502.0250, L500.4100, L100.0100, L500.4050, L501.9985 #### [facility] [address] [place], [address] Urea nitrogen [Mass/Vol] 11 mg/dL Normal 7-18 [facility] Comment on above: Performed By: #### L 502.0250, L500.4100, L100.0100, L500.4050, L501.9985 #### [facility] [address] [place], [address] Hemoglobin A1con 07-04-2024 HbA1c (Bld) [Mass fraction] 6.7 % High 3.8-5.6 [facility] Comment on above: Result Comment: Norm al < 5.7 % Prediabetic 5.7 - 6.4 % Diabetic >or= 6.5 % Please note range changes. Performed By: #### L 502.0250, L500.4100, L100.0100, L500.4050, L501.9985 #### [facility] [address] [place], [address] Lipid Profileon 07-04-2024 Cholesterol [Mass/Vol] 195 mg/dL Normal 200 [facility] Comment on above: Result Comment: <200 mg/dL Desirable 200-240 mg/dL Borderline >240 mg/dL High Risk Performed By: #### L 502.0250, L500.4100, L100.0100, L500.4050, L501.9985 #### [facility] [address] [place], [address] Cholesterol in HDL [Mass/Vol] 35 mg/dL Low [facility] Comment on above: Result Comment: The drugs N-Acetylcysteine and Metamizole may falsely depress this assay. Reference Range HDL <40 mg/dL Low HDL Cholesterol HDL >or= 60 mg/dL High HDL Cholesterol Performed By: #### L 502.0250, L500.4100, L100.0100, L500.4050, L501.9985 #### [facility] [address] [place], [address] Cholesterol in LDL [Mass/Vol] 105 mg/dL Normal 0-130 [facility] Comment on above: Performed By: #### L 502.0250, L500.4100, L100.0100, L500.4050, L501.9985 #### [facility] [address] [place], [address] Cholesterol in VLDL [Mass/Vol] 55 mg/dL High 5-40 [facility] Comment on above: Performed By: #### L 502.0250, L500.4100, L100.0100, L500.4050, L501.9985 #### [facility] [address] [place], [address] Triglyceride [Mass/Vol] 274 mg/dL High [facility] Comment on above: Result Comment: The drugs N-Acetylcysteine and Metamizole may falsely depress this assay. Serum Triglycerides Reference Interval Normal <150 mg/dL Borderline high 150 - 199 mg/dL High 200 - 499 mg/dL Very High > or = 500 mg/dL Performed By: #### L 502.0250, L500.4100, L100.0100, L500.4050, L501.9985 #### [facility] [address] [place], [place], [address] MICROALBUMIN/CREATININE UR W RATIO (EXTERNAL)Ordered By: Lubna Yoon on 07-04-2024 Albumin/Creat Ratio 93 [facility] Creatinine Urine 164 [facility] Microalbumin, Random urine 153 [facility] Microalb:Creat Ratio,Random URon 07-04-2024 Creatinine [Mass/Vol] 164.00 mg/dL Normal NO RAN GE EST. [facility] Comment on above: Performed By: #### L 502.0250, L500.4100, L100.0100, L500.4050, L501.9985 #### [facility] [address] [place], [address] MALB:CRE 93.3 mg/g CRE High <30 mg/g CRE [facility] Comment on above: Performed By: #### L 502.0250, L500.4100, L100.0100, L500.4050, L501.9985 #### [facility] [address] [place], [place], [address] MICROALBUMIN,UR 153.0 mg/L Normal NO RANGE EST. [facility] Comment on above: Performed By: #### L 502.0250, L500.4100, L100.0100, L500.4050, L501.9985 #### [facility] [address] [place], [address] CNOVon 07-03-2024 CNOV Office Visit (FAMPWS) ---- TORI GRAY ([id number]) 1980 F Date Time Provider Department 07/03/24 3:40 PM IVETTE GRIMES During your visit today, we [...] as needed for wheezing/shortness of breath. Ipratropium [place] (ATROVENT) 21 mcg (0.03 %) nasal spray [...] 1 Each by INTRAUTERINE route as directed. Valentine-3 Fatty Acids (FISH OIL) 500 mg cap Take 1 capsule by mouth once daily. blood sugar diagnostic (BLOOD GLUCOSE TEST) test strip Test blood sugar(s) 1 times daily. Dx: Type 2 DM - Controlled E11.9 Insulin: Yes Lancets lancets Test blood sugar(s) 1 times daily. Dx: Type 2 DM - Controlled E11.9 Insulin: No Zscenxky-Tx-Pqo-Fe- FA tab Take 1 tablet by mouth [...] Age of Onset Alcohol/Drug Mother Heart Father ND Cancer Father PANCREATIC CANCER Diabetes Father Coronary [...] in no (more content not included)... Normal [facility] Chiropractic Reporton 2023 Chiropractic Report [facility] [address] [place] [address] OFFICE VISIT Date of Service: 07/02/24 MR#: [id number] Acct: [id number] Name: TORI GRAY Rep #: [id number] : 1980 Provider: CONCEPCIÓN Montgomery Age/Sex: 44/F Location: [facility] [place] Status: Signed Intake Vital [...] or tingling (more content not included)... Normal [facility] Absolute lymphocyte countOrd ered By: Sam Pearl on 02-04-2024 Lymphocytes Auto (Unsp spec) [#/Vol] 2.24 10*3/uL 0.83-4.51 [facility] Automated lymphocyte count a s percentage of total leukocytesOrdered By: Sam Pearl on 02-04-2024 Lymphocytes/100 WBC Auto (Unsp spec) 19.8 % 19-41 [facility] Basophil percentageOrdered B y: Sam Pearl on 02-04-2024 Basophils/100 WBC (Bld) 0.4 % 0-1 [facility] Chloride [Moles/Vol] 106 mmol/L 98-107 [facility] Eosinophils/100 WBC (Bld) 0.9 % 0-5 [facility] Glucose [Mass/Vol] 246 mg/dL 74-106 [facility] Comment on above: Glucose result great er than or equal to 200 mg/dLsuggests DIABETES MELLITUS per A.D.A. criteria. Hemoglobin (Bld) [Mass/Vol] 11.2 g/dL 12.0-15.0 [facility] Monocytes/100 WBC (Bld) 6.6 % 0-10 [facility] Neutrophils (Bld) [#/Vol] 8.0 10*3/uL 2.0-7.7 [facility] Neutrophils/100 WBC (Bld) 71.0 % 47-70 [facility] Potassium [Moles/Vol] 3.6 mmol/L 3.5-5.1 [facility] Sodium [Moles/Vol] 135 mmol/L 136-145 [facility] WBC (Bld) [#/Vol] 11.3 10*3/uL 4.4-11.0 [facility] Basophil percentage 10-25 SEEN /hpf 0-5 [facility] Bilirubin Test strip Ql (U)O rdered By: Sam Pearl on 02-04-2024 Bilirubin Ql (U) Negative Negative [facility] Determination of erythrocyte mean corpuscular volume (MCV)Ordered By: Sam Pearl on 02-04-2024 MCV (RBC) [Entitic vol] 89.5 fL 81-99 [facility] Erythrocyte distribution wid th ratioOrdered By: Sam Pearl on 02-04-2024 Erythrocyte distribution width (RBC) [Ratio] 13.2 % 11.6-14.6 [facility] Erythrocyte distribution wid th standard deviationOrdered By: Sam Pearl on 02-04-2024 Erythrocyte distribution width (RBC) [Entitic vol] 43.2 fL 35.1-43.9 [facility] Hematocrit Auto (Bld) [Volum e fraction]Ordered By: Sam Pearl on 02-04-2024 Hematocrit (Bld) [Volume fraction] 34.2 % 37-47 [facility] Immature granulocytes/100 WB C Auto (Bld)Ordered By: Sam Pearl on 02-04-2024 Immature granulocytes/100 WBC (Bld) 1.300 % 0.0-0.9 [facility] Comment on above: IG% - Immature Granu locytes (promyelocytes, myelocytes and metamyelocytes) > 1% indicates that a LEFT SHIFT is Present. Ketones Test strip Ql (U)Ord ered By: Sam Pearl on 02-04-2024 Ketones Ql (U) Negative Negative [facility] - Chemistry and C hemistry - challengeOrdered By: Sam Pearl on 02-04-2024 CO2 [Moles/Vol] 21.0 mmol/L 21.0-32.0 [facility] Urea nitrogen/Creatinine [Mass ratio] 15.0 mg/mg 10-20 [facility] - Hematology and Cell countsOrdered By: Sam Pearl on 02-04-2024 MCH (RBC) [Entitic mass] 29.3 pg 27.0-32.0 [facility] MCHC (RBC) [Mass/Vol] 32.7 g/dL 32-36 [facility] Nucleated RBC/100 WBC (Bld) [Ratio] 0 % 0-5 [facility] Platelet mean volume (Bld) [Entitic vol] 9.2 fL 6.2-12.0 [facility] Platelets (Bld) [#/Vol] 203 10*3/uL 150-450 [facility] - Microbiology an d Antimicrobial susceptibilityOrdered By: Sam Pearl on 02-04-2024 SARS-CoV-2 (COVID-19) RNA ALLYSON+probe Ql (Unsp spec) [facility] Mucus LM Ql (Urine sed)Order ed By: Sam Pearl on 02-04-2024 Mucus Ql (Urine sed) 0 SEEN /hpf [facility] Nitrite Test strip Ql (U)Ord ered By: Sam Pearl on 02-04-2024 Nitrite Ql (U) Negative Negative [facility] No Panel InformationOrdered By: Sam Pearl on 02-04-2024 Estimated Creatinine Clearance Calc 116.68 ml/min [facility] Estimated GFR (MDRD) Amer 92 mL/min >60 [facility] Comment on above: GFR Calc Estimated GFR (MDRD) Non-Af Amer 76 mL/min >60 [facility] Comment on above: Non- GFR Calc Urine RBC 0-5 SEEN /hpf 0-5 [facility] Protein Test strip Ql (U)Ord ered By: Sam Pearl on 02-04-2024 Protein Ql (U) 15 mg/dl Negative [facility] RBC Auto (Bld) [#/Vol]Ordere d By: Sam Pearl on 02-04-2024 RBC (Bld) [#/Vol] 3.82 10*6/uL 4.2-5.4 [facility] Serum or plasma calcium sharron urement (mass/volume)Ordered By: Sam Pearl on 02-04-2024 Calcium [Mass/Vol] 8.4 mg/dL 8.5-10.1 [facility] Serum or plasma creatinine m easurement (mass/volume)Ordered By: Sam Pearl on 02-04-2024 Creatinine [Mass/Vol] 0.87 mg/dL 0.55-1.02 [facility] Comment on above: The validity of the calculated GFR & GFRAA in patients over 70 years has not been determined. Clinical correlation is essential. Serum or plasma urea nitroge n measurement (mass/volume)Ordered By: Sam Pearl on 02-04-2024 Urea nitrogen [Mass/Vol] 13 mg/dL 7-18 [facility] Squamous epithelial cells de tection in urine sediment by light microscopyOrdered By: Sam Pearl on 02-04-2024 Epithelial cells.squamous LM Ql (Urine sed) 0-5 SEEN /hpf 5-10 [facility] Thin prep Papanicolaou smear with manual screeningOrdered By: Sam Pearl on 02-04-2024 Thin prep Papanicolaou smear with manual screening 8 5-15 [facility] Urine blood detectionOrdered By: Sam Pearl on 02-04-2024 RBC Ql (U) 10 /ul Negative [facility] Urine clarityOrdered By: Ramses Pearl on 02-04-2024 Clarity (U) Clear Clear [facility] Urine color determinationOrd ered By: Sam Pearl on 02-04-2024 Color (U) Yellow Yellow [facility] Urine glucose detectionOrder ed By: Sam Pearl on 02-04-2024 Glucose Ql (U) Normal mg/dl Normal [facility] Urine leukocyte esterase det ection by dipstickOrdered By: Sam Pearl on 02-04-2024 Leukocyte esterase Test strip Ql (U) 100 /ul Negative [facility] Urine pHOrdered By: Sam Pearl on 02-04-2024 pH (U) 7.0 [pH] 5.0 - 8.0 [facility] Urine sediment bacteria coun t by microscopy (number/high power field)Ordered By: Sam Pearl on 02-04-2024 Bacteria LM.HPF (Urine sed) [#/Area] 4 /[HPF] None Seen [facility] Urine specific gravity measu rementOrdered By: Sam Pearl on 02-04-2024 Specific gravity (U) [Rel density] 1.010 1.002-1.030 [facility] Urine urobilinogen measureme ntOrdered By: Sam Pearl on 02-04-2024 Urobilinogen Ql (U) Normal mg/dl Normal [facility] Absolute lymphocyte countOrd ered By: Ivette Grimes on 12-06-2023 Lymphocytes Auto (Unsp spec) [#/Vol] 2.89 10*3/uL 0.83-4.51 [facility] Automated lymphocyte count a s percentage of total leukocytesOrdered By: Ivette Grimes on 12-06-2023 Lymphocytes/100 WBC Auto (Unsp spec) 27.0 % 19-41 [facility] Basophil percentageOrdered B y: Ivette Grimes on 12-06-2023 Basophils/100 WBC (Bld) 0.7 % 0-1 [facility] Bilirubin [Mass/Vol] 0.50 mg/dL 0.20-1.00 [facility] Comment on above: For patients on eltr ombopag therapy, use of Dimension [place] TBIL is not recommended. Chloride [Moles/Vol] 113 mmol/L 98-107 [facility] Cholesterol [Mass/Vol] 202 mg/dL <200 [facility] Comment on above: <200 mg/dL Desirable 200-240 mg/dL Borderline >240 mg/dL High Risk Eosinophils/100 WBC (Bld) 1.4 % 0-5 [facility] Glucose [Mass/Vol] 113 mg/dL 74-106 [facility] Comment on above: Fasting Glucose resu lt from 100 to 125 mg/dL suggests IMPAIRED HOMEOSTASIS per A.D.A. criteria. Hemoglobin (Bld) [Mass/Vol] 13.1 g/dL 12.0-15.0 [facility] Monocytes/100 WBC (Bld) 3.6 % 0-10 [facility] Neutrophils (Bld) [#/Vol] 7.1 10*3/uL 2.0-7.7 [facility] Neutrophils/100 WBC (Bld) 66.3 % 47-70 [facility] Potassium [Moles/Vol] 4.0 mmol/L 3.5-5.1 [facility] Protein [Mass/Vol] 8.7 g/dL 6.4-8.2 [facility] Sodium [Moles/Vol] 138 mmol/L 136-145 [facility] Triglyceride [Mass/Vol] 192 mg/dL <199 [facility] Comment on above: The drugs N-Acetylcy steine and Metamizole may falsely depress this assay.Serum Triglycerides Reference Interval Normal <150 mg/dL Borderline high 150 - 199 mg/dL High 200 - 499 mg/dL Very High > or = 500 mg/dL WBC (Bld) [#/Vol] 10.7 10*3/uL 4.4-11.0 [facility] Determination of erythrocyte mean corpuscular volume (MCV)Ordered By: Ivette Grimes on 12-06-2023 MCV (RBC) [Entitic vol] 92.8 fL 81-99 [facility] Erythrocyte distribution wid th ratioOrdered By: Ivette Grimes on 12-06-2023 Erythrocyte distribution width (RBC) [Ratio] 13.1 % 11.6-14.6 [facility] Erythrocyte distribution wid th standard deviationOrdered By: Ivette Grimes on 12-06-2023 Erythrocyte distribution width (RBC) [Entitic vol] 44.4 fL 35.1-43.9 [facility] Hematocrit Auto (Bld) [Volum e fraction]Ordered By: Ivette Grimes on 12-06-2023 Hematocrit (Bld) [Volume fraction] 39.9 % 37-47 [facility] Immature granulocytes/100 WB C Auto (Bld)Ordered By: Ivette Grimes on 12-06-2023 Immature granulocytes/100 WBC (Bld) 1.000 % 0.0-0.9 [facility] Comment on above: IG% - Immature Granu locytes (promyelocytes, myelocytes and metamyelocytes) > 1% indicates that a LEFT SHIFT is Present. Laboratory - Chemistry and C hemistry - challengeOrdered By: Ivette Grimes on 12-06-2023 Albumin/Globulin [Mass ratio] 0.9 {ratio} 0.9-2.4 [facility] ALP [Catalytic activity/Vol] 80 U/L 45-117 [facility] ALT [Catalytic activity/Vol] 24 U/L 13-56 [facility] Cholesterol in HDL (Body fld) [Mass/Vol] 36 mg/dL >40 [facility] Comment on above: The drugs N-Acetylcy steine and Metamizole may falsely depress this assay. Reference Range HDL <40 mg/dL Low HDL Cholesterol HDL >or= 60 mg/dL High HDL Cholesterol Cholesterol in LDL (Body fld) [Moles/Vol] 128 mg/dL 0-130 [facility] Cholesterol in VLDL Calc [Moles/Vol] 38 mg/dL 5-40 [facility] CO2 [Moles/Vol] 19.0 mmol/L 21.0-32.0 [facility] Globulin (S) [Mass/Vol] 4.6 g/dL 2.2-4.2 [facility] Urea nitrogen/Creatinine [Mass ratio] 25.9 mg/mg 10-20 [facility] - Hematology and Cell countsOrdered By: Ivette Grimes on 12-06-2023 MCH (RBC) [Entitic mass] 30.5 pg 27.0-32.0 [facility] MCHC (RBC) [Mass/Vol] 32.8 g/dL 32-36 [facility] Nucleated RBC/100 WBC (Bld) [Ratio] 0 % 0-5 [facility] Platelets (Bld) [#/Vol] 241 10*3/uL 150-450 [facility] No Panel InformationOrdered By: Ivette Grimes on 12-06-2023 Estimated GFR (MDRD) Amer 90 mL/min >60 [facility] Comment on above: GFR Calc Estimated GFR (MDRD) Non-Af Amer 74 mL/min >60 [facility] Comment on above: Non- GFR Calc Platelet mean volume Jose-Ec ker (Bld) [Entitic vol]Ordered By: Ivette Grimes on 12-06-2023 Platelet mean volume (Bld) [Entitic vol] 8.8 fL 6.2-12.0 [facility] RBC Auto (Bld) [#/Vol]Ordere d By: Ivette Grimes on 12-06-2023 RBC (Bld) [#/Vol] 4.30 10*6/uL 4.2-5.4 [facility] Serum or plasma calcium sharron urement (mass/volume)Ordered By: Ivette Grimes on 12-06-2023 Calcium [Mass/Vol] 9.1 mg/dL 8.5-10.1 [facility] Serum or plasma creatinine m easurement (mass/volume)Ordered By: Ivette Grimes on 12-06-2023 Creatinine [Mass/Vol] 0.89 mg/dL 0.55-1.02 [facility] Comment on above: The validity of the calculated GFR & GFRAA in patients over 70 years has not been determined. Clinical correlation is essential. Serum or plasma urea nitroge n measurement (mass/volume)Ordered By: Ivette Grimes on 12-06-2023 Urea nitrogen [Mass/Vol] 23 mg/dL 7-18 [facility] Thin prep Papanicolaou smear with manual screeningOrdered By: Ivette Grimes on 12-06-2023 Thin prep Papanicolaou smear with manual screening 4.1 g/dL 3.2-5.0 [facility] Thin prep Papanicolaou smear with manual screening 11 U/L 15-37 [facility] Thin prep Papanicolaou smear with manual screening 6 5-15 [facility] Whole blood hemoglobin A1c/t otal hemoglobin ratio (mass fraction)Ordered By: Ivette Grimes on 12-06-2023 HbA1c (Bld) [Mass fraction] 5.7 % 3.8-5.6 [facility] Comment on above: Normal < 5.7 % Predi abetic 5.7 - 6.4 % Diabetic >or= 6.5 % Please note range changes. Glucose Glucometer (BldC) [M ass/Vol]Ordered By: Sosa Mendez on 08-07-2023 Glucose [Mass/Vol] 157 mg/dL 74-106 [facility] Comment on above: MANAGEMENT OF PATIEN T CARE PER NURSING PROTOCOL Absolute lymphocyte countOrd ered By: Sosa Mendez on 08-06-2023 Lymphocytes Auto (Unsp spec) [#/Vol] 2.45 10*3/uL 0.83-4.51 [facility] Basophil percentageOrdered B y: Sosa Mendez on 08-06-2023 Basophils/100 WBC (Bld) 0.8 % 0-1 [facility] Chloride [Moles/Vol] 111 mmol/L 98-107 [facility] Cholesterol [Mass/Vol] 173 mg/dL <200 [facility] Comment on above: <200 mg/dL Desirable 200-240 mg/dL Borderline >240 mg/dL High Risk Eosinophils/100 WBC (Bld) 3.1 % 0-5 [facility] Glucose [Mass/Vol] 143 mg/dL 74-106 [facility] Comment on above: Fasting Glucose resu lt greater than or equal to 126 mg/dL suggests DIABETES MELLITUS per A.D.A. criteria. Neutrophils (Bld) [#/Vol] 3.9 10*3/uL 2.0-7.7 [facility] Neutrophils/100 WBC (Bld) 54.5 % 47-70 [facility] Potassium [Moles/Vol] 3.6 mmol/L 3.5-5.1 [facility] Sodium [Moles/Vol] 139 mmol/L 136-145 [facility] Triglyceride [Mass/Vol] 325 mg/dL <199 [facility] Comment on above: The drugs N-Acetylcy steine and Metamizole may falsely depress this assay.Serum Triglycerides Reference Interval Normal <150 mg/dL Borderline high 150 - 199 mg/dL High 200 - 499 mg/dL Very High > or = 500 mg/dL WBC (Bld) [#/Vol] 7.1 10*3/uL 4.4-11.0 [facility] Blood erythrocytes count (nu mber/volume)Ordered By: Sosa Mendez on 08-06-2023 RBC (Bld) [#/Vol] 4.15 10*6/uL 4.2-5.4 [facility] Blood hemoglobin measurement (mass/volume)Ordered By: Sosa Mendez on 08-06-2023 Hemoglobin (Bld) [Mass/Vol] 13.0 g/dL 12.0-15.0 [facility] Blood lymphocytes/100 leukoc ytesOrdered By: Sosa Mendez on 08-06-2023 Lymphocytes/100 WBC (Bld) 34.4 % 19-41 [facility] Blood monocytes/100 leukocyt esOrdered By: Sosa Mendez on 08-06-2023 Monocytes/100 WBC (Bld) 5.2 % 0-10 [facility] Blood platelet mean volumeOr dered By: Sosa Mendez on 08-06-2023 Platelet mean volume (Bld) [Entitic vol] 9.4 fL 6.2-12.0 [facility] Determination of erythrocyte mean corpuscular volume (MCV)Ordered By: Sosa Mendez on 08-06-2023 MCV (RBC) [Entitic vol] 95.4 fL 81-99 [facility] Hematocrit Auto (Bld) [Volum e fraction]Ordered By: Sosa Menedz on 08-06-2023 Hematocrit (Bld) [Volume fraction] 39.6 % 37-47 [facility] - Chemistry and C hemistry - challengeOrdered By: Sosa Mendez on 08-06-2023 CO2 [Moles/Vol] 23.0 mmol/L 21.0-32.0 [facility] Urea nitrogen/Creatinine [Mass ratio] 15.4 mg/mg 10-20 [facility] - Hematology and Cell countsOrdered By: Sosa Mendez on 08-06-2023 Erythrocyte distribution width (RBC) [Entitic vol] 45.4 fL 35.1-43.9 [facility] Erythrocyte distribution width (RBC) [Ratio] 13.0 % 11.6-14.6 [facility] Immature granulocytes/100 WBC (Bld) 2.000 % 0.0-0.9 [facility] Comment on above: IG% - Immature Granu locytes (promyelocytes, myelocytes and metamyelocytes) > 1% indicates that a LEFT SHIFT is Present. MCH (RBC) [Entitic mass] 31.3 pg 27.0-32.0 [facility] Nucleated RBC/100 WBC (Bld) [Ratio] 0 % 0-5 [facility] MCHC Auto (RBC) [Mass/Vol]Or dered By: Sosa Mendez on 08-06-2023 MCHC (RBC) [Mass/Vol] 32.8 g/dL 32-36 [facility] No Panel InformationOrdered By: Sosa Mendez on 08-06-2023 Estimated Creatinine Clearance Calc 92.30 ml/min [facility] Estimated GFR (MDRD) Amer 104 mL/min >60 [facility] Comment on above: GFR Calc Estimated GFR (MDRD) Non-Af Amer 86 mL/min >60 [facility] Comment on above: Non- GFR Calc Platelets bldOrdered By: Shanell Mendez on 08-06-2023 Platelets (Bld) [#/Vol] 184 10*3/uL 150-450 [facility] Serum or plasma calcium sharron urement (mass/volume)Ordered By: Sosa Mendez on 08-06-2023 Calcium [Mass/Vol] 8.2 mg/dL 8.5-10.1 [facility] Serum or plasma cholesterol in HDL measurement (mass/volume)Ordered By: Sosa Mendez on 08-06-2023 Cholesterol in HDL [Mass/Vol] 29 mg/dL >40 [facility] Comment on above: The drugs N-Acetylcy steine and Metamizole may falsely depress this assay. Reference Range HDL <40 mg/dL Low HDL Cholesterol HDL >or= 60 mg/dL High HDL Cholesterol Serum or plasma cholesterol in VLDL measurement (mass/volume)Ordered By: Sosa Mendez on 08-06-2023 Cholesterol in VLDL [Mass/Vol] 65 mg/dL 5-40 [facility] Serum or plasma creatinine m easurement (mass/volume)Ordered By: Sosa Mendez on 08-06-2023 Creatinine [Mass/Vol] 0.78 mg/dL 0.55-1.02 [facility] Comment on above: The validity of the calculated GFR & GFRAA in patients over 70 years has not been determined. Clinical correlation is essential. Serum or plasma low density lipoprotein (LDL) cholesterol measurement (mass/volume)Ordered By: Sosa Mendez on 08-06-2023 Cholesterol in LDL [Mass/Vol] 79 mg/dL 0-130 [facility] Serum or plasma urea nitroge n measurement (mass/volume)Ordered By: Sosa Mendez on 08-06-2023 Urea nitrogen [Mass/Vol] 12 mg/dL 7-18 [facility] Thin prep Papanicolaou smear with manual screeningOrdered By: Sosa Mendez on 08-06-2023 Thin prep Papanicolaou smear with manual screening 5 5-15 [facility] Absolute lymphocyte countOrd ered By: Niurka Kendall on 08-05-2023 Lymphocytes Auto (Unsp spec) [#/Vol] 2.33 10*3/uL 0.83-4.51 [facility] Basophil percentageOrdered B y: Niurka Kendall on 08-05-2023 Basophils/100 WBC (Bld) 0.9 % 0-1 [facility] Chloride [Moles/Vol] 110 mmol/L 98-107 [facility] Eosinophils/100 WBC (Bld) 2.6 % 0-5 [facility] Glucose [Mass/Vol] 108 mg/dL 74-106 [facility] Comment on above: Fasting Glucose resu lt from 100 to 125 mg/dL suggests IMPAIRED HOMEOSTASIS per A.D.A. criteria. Neutrophils (Bld) [#/Vol] 4.7 10*3/uL 2.0-7.7 [facility] Neutrophils/100 WBC (Bld) 59.9 % 47-70 [facility] Potassium [Moles/Vol] 3.7 mmol/L 3.5-5.1 [facility] Sodium [Moles/Vol] 140 mmol/L 136-145 [facility] WBC (Bld) [#/Vol] 7.8 10*3/uL 4.4-11.0 [facility] Blood erythrocytes count (nu mber/volume)Ordered By: Niurka Kendall on 08-05-2023 RBC (Bld) [#/Vol] 4.04 10*6/uL 4.2-5.4 [facility] Blood hemoglobin measurement (mass/volume)Ordered By: Niurka Kendall on 08-05-2023 Hemoglobin (Bld) [Mass/Vol] 12.9 g/dL 12.0-15.0 [facility] Blood lymphocytes/100 leukoc ytesOrdered By: Niurka Kendall on 08-05-2023 Lymphocytes/100 WBC (Bld) 30.1 % 19-41 [facility] Blood monocytes/100 leukocyt esOrdered By: Niurka Kendall on 08-05-2023 Monocytes/100 WBC (Bld) 5.2 % 0-10 [facility] Blood platelet mean volumeOr dered By: Niurka Kendall on 08-05-2023 Platelet mean volume (Bld) [Entitic vol] 9.7 fL 6.2-12.0 [facility] COVID19 virus antigen assay Ordered By: Niurka Kendall on 08-05-2023 SARS-CoV-2 (COVID-19) Ag IA.rapid Ql (Resp) [facility] SARS-CoV-2 (COVID-19) Ag IA.rapid Ql (Resp) [facility] Determination of erythrocyte mean corpuscular volume (MCV)Ordered By: Niurka Kendall on 08-05-2023 MCV (RBC) [Entitic vol] 97.8 fL 81-99 [facility] Glucose Glucometer (BldC) [M ass/Vol]Ordered By: Niurka Kendall on 08-05-2023 Glucose [Mass/Vol] 120 mg/dL 74-106 [facility] Comment on above: MANAGEMENT OF PATIEN T CARE PER NURSING PROTOCOL Hematocrit Auto (Bld) [Volum e fraction]Ordered By: Niurka Kendall on 08-05-2023 Hematocrit (Bld) [Volume fraction] 39.5 % 37-47 [facility] INR in Blood by Coagulation assayOrdered By: Niurka Kendall on 08-05-2023 INR Coag (Bld) [Relative time] 1.1 {INR} [facility] Laboratory - Chemistry and C hemistry - challengeOrdered By: Niurka Kendall on 08-05-2023 CO2 [Moles/Vol] 24.0 mmol/L 21.0-32.0 [facility] Urea nitrogen/Creatinine [Mass ratio] 20.8 mg/mg 10-20 [facility] Laboratory - CoagulationOrde red By: Niurka Kendall on 08-05-2023 aPTT Coag (Bld) [Time] 32.7 s 24.1-36.2 [facility] PT Coag (PPP) [Time] 14.4 s 11.7-14.9 [facility] Laboratory - Hematology and Cell countsOrdered By: Niurka Kendall on 08-05-2023 Erythrocyte distribution width (RBC) [Entitic vol] 47.0 fL 35.1-43.9 [facility] Erythrocyte distribution width (RBC) [Ratio] 13.1 % 11.6-14.6 [facility] Immature granulocytes/100 WBC (Bld) 1.300 % 0.0-0.9 [facility] Comment on above: IG% - Immature Granu locytes (promyelocytes, myelocytes and metamyelocytes) > 1% indicates that a LEFT SHIFT is Present. MCH (RBC) [Entitic mass] 31.9 pg 27.0-32.0 [facility] Nucleated RBC/100 WBC (Bld) [Ratio] 0 % 0-5 [facility] MCHC Auto (RBC) [Mass/Vol]Or dered By: Niurka Kendall on 08-05-2023 MCHC (RBC) [Mass/Vol] 32.7 g/dL 32-36 [facility] No Panel InformationOrdered By: Niurka Kendall on 08-05-2023 Estimated Creatinine Clearance Calc 99.99 ml/min [facility] Estimated GFR (MDRD) Amer 115 mL/min >60 [facility] Comment on above: GFR Calc Estimated GFR (MDRD) Non-Af Amer 95 mL/min >60 [facility] Comment on above: Non- GFR Calc Thyroid Stimulating Hormone (TSH) 1.54 uIU/mL 0.358-3.74 [facility] Troponin I High Sensitivity 4 pg/mL 3.0-54.0 [facility] Comment on above: Please Note: New Ananth t Units and Gender Specific Reference Ranges. For more information see Policy Stat Procedure [place] High Sensitivity Troponin (TNIH) and attachments. Platelets bldOrdered By: Romina Kendall on 08-05-2023 Platelets (Bld) [#/Vol] 190 10*3/uL 150-450 [facility] Serum or plasma calcium sharron urement (mass/volume)Ordered By: Niurka Kendall on 08-05-2023 Calcium [Mass/Vol] 8.5 mg/dL 8.5-10.1 [facility] Serum or plasma creatinine m easurement (mass/volume)Ordered By: Niurka Kendall on 08-05-2023 Creatinine [Mass/Vol] 0.72 mg/dL 0.55-1.02 [facility] Comment on above: The validity of the calculated GFR & GFRAA in patients over 70 years has not been determined. Clinical correlation is essential. Serum or plasma urea nitroge n measurement (mass/volume)Ordered By: Niurka Kendall on 08-05-2023 Urea nitrogen [Mass/Vol] 15 mg/dL 7-18 [facility] Thin prep Papanicolaou smear with manual screeningOrdered By: Niurka Kendall on 08-05-2023 Thin prep Papanicolaou smear with manual screening 6 5-15 [facility] Whole blood hemoglobin A1c/t otal hemoglobin ratio (mass fraction)Ordered By: Sosa Mendez on 08-05-2023 HbA1c (Bld) [Mass fraction] 6.6 % 3.8-5.6 [facility] Comment on above: Normal < 5.7 % Predi abetic 5.7 - 6.4 % Diabetic >or= 6.5 % Please note range changes. XR Foot - right AP and Later al and obliqueon 05-28-2023 IMPRESSION: No acute osseous abnormalities are identified. Calcaneal spurring. 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 DIVISION OF RADIOLOGY Provider, [facility] [place] - 05/28/2023 * * *Final Report* * [...] acute osseous abnormalities are identified. Calcaneal spurring. Accounting Machine Servicer[facility] Transcribe Date/Time: May 28 2023 11:55A Dictated by : BRITTANY MCCANN MD This examination was interpreted and the report reviewed and electronically signed by: BRITTANY MCCANN MD on May 28 2023 11:56AM EST [facility] Radiology Study observation (narrative) [facility] XR Foot - right AP and Later al and obliqueOrdered By: [facility] Provider on 05-28-2023 [facility] Absolute lymphocyte countOrd ered By: Dr. Grimes on 03-04-2023 Lymphocytes Auto (Unsp spec) [#/Vol] 2.34 10*3/uL 0.83-4.51 [facility] Basophil percentageOrdered B y: Dr. Grimes on 03-04-2023 Basophils/100 WBC (Bld) 1.0 % 0-1 [facility] Chloride [Moles/Vol] 109 mmol/L 98-107 [facility] Eosinophils/100 WBC (Bld) 2.3 % 0-5 [facility] Glucose [Mass/Vol] 142 mg/dL 74-106 [facility] Comment on above: Fasting Glucose resu lt greater than or equal to 126 mg/dL suggests DIABETES MELLITUS per A.D.A. criteria. Neutrophils (Bld) [#/Vol] 5.6 10*3/uL 2.0-7.7 [facility] Neutrophils/100 WBC (Bld) 63.9 % 47-70 [facility] Potassium [Moles/Vol] 3.9 mmol/L 3.5-5.1 [facility] Sodium [Moles/Vol] 138 mmol/L 136-145 [facility] WBC (Bld) [#/Vol] 8.8 10*3/uL 4.4-11.0 [facility] Blood erythrocytes count (nu mber/volume)Ordered By: Dr. Grimes on 03-04-2023 RBC (Bld) [#/Vol] 4.38 10*6/uL 4.2-5.4 [facility] Blood hemoglobin measurement (mass/volume)Ordered By: Dr. Grimes on 03-04-2023 Hemoglobin (Bld) [Mass/Vol] 14.1 g/dL 12.0-15.0 [facility] Blood lymphocytes/100 leukoc ytesOrdered By: Dr. Grimes on 03-04-2023 Lymphocytes/100 WBC (Bld) 26.5 % 19-41 [facility] Blood monocytes/100 leukocyt esOrdered By: Dr. Grimes on 03-04-2023 Monocytes/100 WBC (Bld) 4.6 % 0-10 [facility] Blood platelet mean volumeOr dered By: Dr. Grimes on 03-04-2023 Platelet mean volume (Bld) [Entitic vol] 9.5 fL 6.2-12.0 [facility] Determination of erythrocyte mean corpuscular volume (MCV)Ordered By: Dr. Grimes on 03-04-2023 MCV (RBC) [Entitic vol] 96.8 fL 81-99 [facility] Hematocrit Auto (Bld) [Volum e fraction]Ordered By: Dr. Grimes on 03-04-2023 Hematocrit (Bld) [Volume fraction] 42.4 % 37-47 [facility] Iron measurement (mass/mass) Ordered By: Dr. Grimes on 03-04-2023 Iron (Unsp spec) [Mass/Mass] 92 ug/dL 50-170 [facility] Laboratory - Chemistry and C hemistry - challengeOrdered By: Dr. Grimes on 03-04-2023 CO2 [Moles/Vol] 21.0 mmol/L 21.0-32.0 [facility] Magnesium [Mass/Vol] 1.7 mg/dL 1.6-2.6 [facility] Urea nitrogen/Creatinine [Mass ratio] 17.1 mg/mg 10-20 [facility] Laboratory - Hematology and Cell countsOrdered By: Dr. Grimes on 03-04-2023 Erythrocyte distribution width (RBC) [Entitic vol] 48.1 fL 35.1-43.9 [facility] Erythrocyte distribution width (RBC) [Ratio] 13.3 % 11.6-14.6 [facility] Immature granulocytes/100 WBC (Bld) 1.700 % 0.0-0.9 [facility] Comment on above: IG% - Immature Granu locytes (promyelocytes, myelocytes and metamyelocytes) > 1% indicates that a LEFT SHIFT is Present. MCH (RBC) [Entitic mass] 32.2 pg 27.0-32.0 [facility] Nucleated RBC/100 WBC (Bld) [Ratio] 0 % 0-5 [facility] MCHC Auto (RBC) [Mass/Vol]Or dered By: Dr. Grimes on 03-04-2023 MCHC (RBC) [Mass/Vol] 33.3 g/dL 32-36 [facility] No Panel InformationOrdered By: Dr. Grimes on 03-04-2023 Urine Microalbumin/Creatinine Ratio 63.0 mg/g CRE <30 [facility] Estimated GFR (MDRD) Amer 99 mL/min >60 [facility] Comment on above: GFR Calc Estimated GFR (MDRD) Non-Af Amer 82 mL/min >60 [facility] Comment on above: Non- GFR Calc Total Iron Binding Capacity 323 ug/dL 250-450 [facility] Platelets bldOrdered By: Dr. Grimes on 03-04-2023 Platelets (Bld) [#/Vol] 214 10*3/uL 150-450 [facility] Serum or plasma calcium sharron urement (mass/volume)Ordered By: Dr. Grimes on 03-04-2023 Calcium [Mass/Vol] 8.4 mg/dL 8.5-10.1 [facility] Serum or plasma creatinine m easurement (mass/volume)Ordered By: Dr. Grimes on 03-04-2023 Creatinine [Mass/Vol] 0.82 mg/dL 0.55-1.02 [facility] Comment on above: The validity of the calculated GFR & GFRAA in patients over 70 years has not been determined. Clinical correlation is essential. Serum or plasma iron saturat ion measurement (mass fraction)Ordered By: Dr. Grimes on 03-04-2023 Iron saturation [Mass fraction] 28.5 % 15.0-55.0 [facility] Serum or plasma urea nitroge n measurement (mass/volume)Ordered By: Dr. Grimes on 03-04-2023 Urea nitrogen [Mass/Vol] 14 mg/dL 7-18 [facility] Thin prep Papanicolaou smear with manual screeningOrdered By: Dr. Grimes on 03-04-2023 Thin prep Papanicolaou smear with manual screening 133.0 mg/L NO RANGE EST. [facility] Thin prep Papanicolaou smear with manual screening 8 5-15 [facility] Urine creatinine measurement (mass/volume)Ordered By: Dr. Grimes on 03-04-2023 Creatinine (U) [Mass/Vol] 211.00 mg/dL NO RANGE EST. [facility] Whole blood hemoglobin A1c/t otal hemoglobin ratio (mass fraction)Ordered By: Dr. Grimes on 03-04-2023 HbA1c (Bld) [Mass fraction] 6.1 % 3.8-5.6 [facility] Comment on above: Normal < 5.7 % Predi abetic 5.7 - 6.4 % Diabetic >or= 6.5 % Please note range changes. No Panel Informationon 02-28 [facility] CNCOon 01-24-2023 CNCO Letter Text Normal 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 Normal [facility] CNPIliana 01-24-2023 [facility] Telephone (SPAGSquirrlyO) ---- TORI GRAY ([id number]) 1980 F Date Time Provider Department 01/24/23 ELLE SANCHEZ [facility] During your visit today, we recorded the [...] by INTRAUTERINE route as directed. - Ipratropium [place] (ATROVENT) 0.03 % nasal spray Use 2 Sprays in the nose every 12 hours. - metroNIDAZOLE (METROGEL) 0.75 % Topical Gel Apply to affected area twice daily. - Valentine-3 Fatty Acids (FISH OIL) 500 mg cap Take 1 capsule by mouth once daily. - blood sugar diagnostic (BLOOD GLUCOSE TEST) test strip Test blood sugar(s) 1 times daily. Dx: Type 2 DM - Controlled E11.9 Insulin: Yes - Lancets lancets Test blood sugar(s) 1 times daily. Dx: Type 2 DM - Controlled E11.9 Insulin: No - Zdfqrrrw-Js-Wtr-Fe- FA tab Take 1 tablet by mouth [...] 05/06/2009 01/23/2010 [facility]01/23/2010 12/06/2012 Class: Chronic Routine gynecological examination [Z01.419] 01/23/2010 02/22/2014 Class: Chronic Morbid Obesity [E66.01] 01/23/2010 Lumbar Disc Disorder [M51.9] 02/16/2010 (more content not included)... Normal [facility] HCG ( test) Ql (U)o n 01-02-2023 Specific gravity (U) [Rel density] 1.010 Normal 1.005-1.030 [facility] Comment on above: Order Comment: Speci men Type: URINE SPECIMENOrdering Facility: [facility] Address: [address] [place] [address] Performed By: #### 2 106-3 ####[facility] [employer] [id number] [place] [id number] [place] [facility] HCG Preg Ur Qlon 01-02-2023 HCG ( test) Ql (U) Negative Normal Negative [facility] Comment on above: Order Comment: Speci men Type: URINE SPECIMENOrdering Facility: [facility] Address: [address] [place] [address] Result Comment: This test is intended to aid in the early detection of . Very dilute urine samples, as indicated by a low specific gravity, may not contain fraud representative levels of hCG. This test detects [...] for . Performed By: #### 2 106-3 ####[facility] [employer]I LABCLIA [id number] [place] [address] [place] HISTORY PHYSICALon HISTORY PHYSICAL HNO ID: [id number] Author: Elle Sanchez MD Service: Pain Management [...] 1/2 hr before meal. Unknown Yes Ipratropium Ol[place] (ATROVENT) 0.03 % nasal spray Use 2 Sprays in the nose every 12 hours. Unknown Yes Valentine-3 Fatty Acids (FISH OIL) 500 mg cap Take 1 capsule by mouth once daily. Patient taking differently: Take 1 tablet by mouth once daily. 1200 mg 01/02/2023 Yes blood sugar diagnostic (BLOOD GLUCOSE TEST) test strip Test blood sugar(s) 1 times daily. Dx: Type 2 DM - Controlled E11.9 Insulin: Yes Yes Qzoqanqw-Qu-Byc-Fe- FA tab Take 1 tablet by mouth [...] January 02, 2023 TIME: 11:00 AM Normal [facility] OPERATIVE NOon 01-02-2023 OPERATIVE NO HNO ID: [id number] Author: Elle Sanchez MD Service: Pain Management Author Type: Physician Type: Operative Report Filed: 01/02/2023 11:29 AM Note Text: OPERATIVE/PROCEDURE REPORT LOG ID: [id number] SURGERY/PROCEDURE DATE: 01/02/2023 INCISION/PROCEDURE START TIME: 11:18 AM INCISION CLOSE/PROCEDURE END TIME: 11:25 AM SURGEON(S)/PROCEDUR BRETT(S) AND MAPPING PILOT(S): Surgeon(s) and Role: * Elle Sanchez MD [...] January 02, 2023 TIME: 11:28 AM Normal [facility] C[facility] Tele[facility] (AGSPINE3) ---- TORI GRAY ([id number]) 1980 F Date Time Provider Department 11/29/22 ELLE SANCHEZ AGSPINE3 During your visit today, we recorded the following information about you: Darrion Carson 11/29/2022 2:40 PM Signed Patient has left a voicemail stating that she had fallen over the weekend and has a concussion. She is wondering if she should reschedule her appointment for 12/05/22 with you in [place] as she is not sure if this [...] to reschedule out to January 02 at [place], message has been sent to [place]. Darrion Shah Allergies As of Date: 11/29/2022 Noted Allergy Reaction LIDOCAINE 12/24/2019 4 - Hives STEROIDS (BETAMETHASONE DIPROPION* 2 4 - Hives Date Reviewed: 11/27/2022 Reviewed by: Dennsie Robles - Fully Assessed Reason for Visit: Patient Question [1472] Cmt: [place] appointment on 12/05/22 Prescriptions as of 11/30/2022 [...] by INTRAUTERINE route as directed. - Ipratropium [place] (ATROVENT) 0.03 % nasal spray Use 2 Sprays in the nose every 12 hours. - metroNIDAZOLE (METROGEL) 0.75 % Topical Gel Apply to affected area twice daily. - Valentine-3 Fatty Acids (FISH OIL) 500 mg cap Take 1 capsule by mouth once daily. - blood sugar diagnostic (BLOOD GLUCOSE TEST) test strip Test blood sugar(s) 1 times daily. Dx: Type 2 DM - Controlled E11.9 Insulin: Yes - Lancets lancets Test blood sugar(s) 1 times daily. Dx: Type 2 DM - Controlled E11.9 Insulin: No - Wcghjawe-Hx-Iwu-Fe- FA tab Take 1 tablet by mouth [...] 05/06/2009 01/23/2010 Routine general medical examination at [facility]*01/23/2010 12/06/2012 Class: Chronic Routine gynecological examination [Z01.419] 01/23/2010 02/22/2014 Class: Chronic Morbid Obesity [E66.01] 01/23/2010 Lumbar Disc Disorder [M51.9] 02/16/2010 Routine general medical examination at [facility]*12/06/2012 02/22/2014 Anxiety [F41.9] 06/07/2014 Type 2 [...] 04/17/2022 09/04/2022 (more content not included)... Normal [facility] Glucose Glucometer (BldC) [M ass/Vol]Ordered By: Dr. Shabazz on 11-24-2022 Glucose [Mass/Vol] 89 mg/dL 74-106 [facility] Comment on above: MANAGEMENT OF PATIEN T CARE PER NURSING PROTOCOL CNOVon 11-08-2022 CNOV Office Visit (SPAGWO) ---- TORI GRAY ([id number]) 1980 F Date Time Provider Department 11/08/22 [...] The patient is not nervous/anxious. Adelina Mason APRN.STEP DOWN SPECIALIST 11/08/2022 1:55 PM Signed [facility] [place] [facility] Today's Date: 11/08/2022 Last Visit: 07/19/22 [...] activity was identified. 11/08/2022 by Adelina Mason APRN.STEP DOWN SPECIALIST Allergies: ALLERGIES Allergen Reactions Lidocaine Hives Steroids [...] No vis (more content not included)... Normal [facility]Non [facility] TOR[facility] G[facility] ([id number]) 1980 F Date Time Provider Department 11/08/22 ELLE SANCHEZ During your visit today, we [...] No 9. Does this procedure require a furniture mover driver? Yes If yes, has patient been notified that a furniture mover driver is needed and must be present [...] 2nd dose of the COVID vaccine.) Vito EstrellaVidal Allergies As of Date: 11/08/2022 Noted Allergy Reaction LIDOCAINE 12/24/2019 4 - Hives STEROIDS (BETAMETHASONE DIPROPION* 2 4 - Hives Date Reviewed: 11/08/2022 Reviewed by: Adelina Mason APRN.STEP DOWN SPECIALIST - Fully Assessed Reason for Visit: Injections [...] by INTRAUTERINE route as directed. - Ipratropium [place] (ATROVENT) 0.03 % nasal spray Use 2 Sprays in the nose every 12 hours. - metroNIDAZOLE (METROGEL) 0.75 % Topical Gel Apply to affected area twice daily. - Valentine-3 Fatty Acids (FISH OIL) 500 mg cap Take 1 capsule by mouth once daily. - blood sugar diagnostic (BLOOD GLUCOSE TEST) test strip Test blood sugar(s) 1 times daily. Dx: Type 2 DM - Controlled E11.9 Insulin: Yes - Lancets lancets Test blood sugar(s) 1 times daily. Dx: Type 2 DM - Controlled E11.9 Insulin: No - Rzdeohmf-Wd-Jli-Fe- FA tab Take 1 tablet by mouth [...] 01/23/2010 Routine general medical examination at a [facility]*01/23/2010 12/06/2012 Class: Chronic Routine gynecological examination [Z01.419] 01/23/2010 02/22/2014 Class: Chronic Morbid Obesity [E66.01] 01/23/2010 Lumbar (more content not included)... Normal [facility] ---- TORI GRAY ([id number]) 1980 F Date Time Provider Department 10/02/22 [...] Reason for Visit: Appointment [186] Patient Question [3647] Prescriptions as of 10/02/2022 - tiZANidine (ZANAFLEX) [...] bed with current PAP mask. - Ipratropium [place] (ATROVENT) 0.03 % nasal spray Use 2 Sprays in the nose every 12 hours. - metroNIDAZOLE (METROGEL) 0.75 % Topical Gel Apply to affected area twice daily. - Valentine-3 Fatty Acids (FISH OIL) 500 mg cap Take 1 capsule by mouth once daily. - blood sugar diagnostic (BLOOD GLUCOSE TEST) test strip Test blood sugar(s) 1 times daily. Dx: Type 2 DM - Controlled E11.9 Insulin: Yes - Lancets lancets Test blood sugar(s) 1 times daily. Dx: Type 2 DM - Controlled E11.9 Insulin: No - Rxsicjdf-Aw-Fza-Fe- FA tab Take 1 tablet by mouth [...] 01/23/2010 Routine general medical examination at a regional medical center*01/23/2010 12/06/2012 Class: Chronic Routine gynecological [...] [R20.0] 12/ (more content not included)... Normal [facility] Absolute lymphocyte countOrd ered By: Dr. Grimes on 09-06-2022 Lymphocytes Auto (Unsp spec) [#/Vol] 2.67 10*3/uL 0.83-4.51 [facility] Basophil percentageOrdered B y: Dr. Grimes on 09-06-2022 Basophils/100 WBC (Bld) 0.5 % 0-1 [facility] Chloride [Moles/Vol] 110 mmol/L 98-107 [facility] Eosinophils/100 WBC (Bld) 2.1 % 0-5 [facility] Glucose [Mass/Vol] 120 mg/dL 74-106 [facility] Comment on above: Fasting Glucose resu lt from 100 to 125 mg/dL suggests IMPAIRED HOMEOSTASIS per A.D.A. criteria. Neutrophils (Bld) [#/Vol] 6.2 10*3/uL 2.0-7.7 [facility] Neutrophils/100 WBC (Bld) 64.2 % 47-70 [facility] Potassium [Moles/Vol] 3.6 mmol/L 3.5-5.1 [facility] Sodium [Moles/Vol] 139 mmol/L 136-145 [facility] WBC (Bld) [#/Vol] 9.6 10*3/uL 4.4-11.0 [facility] Blood erythrocytes count (nu mber/volume)Ordered By: Dr. Grimes on 09-06-2022 RBC (Bld) [#/Vol] 4.29 10*6/uL 4.2-5.4 [facility] Blood hemoglobin measurement (mass/volume)Ordered By: Dr. Grimes on 09-06-2022 Hemoglobin (Bld) [Mass/Vol] 13.6 g/dL 12.0-15.0 [facility] Blood lymphocytes/100 leukoc ytesOrdered By: Dr. Grimes on 09-06-2022 Lymphocytes/100 WBC (Bld) 27.8 % 19-41 [facility] Blood monocytes/100 leukocyt esOrdered By: Dr. Grimes on 09-06-2022 Monocytes/100 WBC (Bld) 4.3 % 0-10 [facility] Blood platelet mean volumeOr dered By: Dr. Grimes on 09-06-2022 Platelet mean volume (Bld) [Entitic vol] 9.6 fL 6.2-12.0 [facility] Determination of erythrocyte mean corpuscular volume (MCV)Ordered By: Dr. Grimes on 09-06-2022 MCV (RBC) [Entitic vol] 90.2 fL 81-99 [facility] Hematocrit Auto (Bld) [Volum e fraction]Ordered By: Dr. Grimes on 09-06-2022 Hematocrit (Bld) [Volume fraction] 38.7 % 37-47 [facility] Laboratory - Chemistry and C hemistry - challengeOrdered By: Dr. Grimes on 09-06-2022 CO2 [Moles/Vol] 23.0 mmol/L 21.0-32.0 [facility] Urea nitrogen/Creatinine [Mass ratio] 15.9 mg/mg 10-20 [facility] Laboratory - Hematology and Cell countsOrdered By: Dr. Grimes on 09-06-2022 Erythrocyte distribution width (RBC) [Entitic vol] 42.5 fL 35.1-43.9 [facility] Erythrocyte distribution width (RBC) [Ratio] 12.9 % 11.6-14.6 [facility] Immature granulocytes/100 WBC (Bld) 1.100 % 0.0-0.9 [facility] Comment on above: IG% - Immature Granu locytes (promyelocytes, myelocytes and metamyelocytes) > 1% indicates that a LEFT SHIFT is Present. MCH (RBC) [Entitic mass] 31.7 pg 27.0-32.0 [facility] Nucleated RBC/100 WBC (Bld) [Ratio] 0 % 0-5 [facility] MCHC Auto (RBC) [Mass/Vol]Or dered By: Dr. Grimes on 09-06-2022 MCHC (RBC) [Mass/Vol] 35.1 g/dL 32-36 [facility] No Panel InformationOrdered By: Dr. Grimes on 09-06-2022 Estimated GFR (MDRD) Amer 100 mL/min >60 [facility] Comment on above: GFR Calc Estimated GFR (MDRD) Non-Af Amer 82 mL/min >60 [facility] Comment on above: Non- GFR Calc Thyroid Stimulating Hormone (TSH) 1.56 uIU/mL 0.358-3.74 [facility] Platelets bldOrdered By: Dr. Grimes on 09-06-2022 Platelets (Bld) [#/Vol] 190 10*3/uL 150-450 [facility] Serum or plasma calcium sharron urement (mass/volume)Ordered By: Dr. Grimes on 09-06-2022 Calcium [Mass/Vol] 8.7 mg/dL 8.5-10.1 [facility] Serum or plasma creatinine m easurement (mass/volume)Ordered By: Dr. Grimes on 09-06-2022 Creatinine [Mass/Vol] 0.82 mg/dL 0.55-1.02 [facility] Comment on above: The validity of the calculated GFR & GFRAA in patients over 70 years has not been determined. Clinical correlation is essential. Serum or plasma urea nitroge n measurement (mass/volume)Ordered By: Dr. Grimes on 09-06-2022 Urea nitrogen [Mass/Vol] 13 mg/dL 7-18 [facility] Thin prep Papanicolaou smear with manual screeningOrdered By: Dr. Grimes on 09-06-2022 Thin prep Papanicolaou smear with manual screening 6 5-15 [facility] Laboratory - Chemistry and C hemistry - challengeOrdered By: Dr. Guerrero on 08-29-2022 Magnesium [Mass/Vol] 1.7 mg/dL 1.6-2.6 [facility] Basophil percentageOrdered B y: Dr. Grimes on 08-08-2022 Cholesterol [Mass/Vol] 168 mg/dL <200 [facility] Comment on above: <200 mg/dL Desirable 200-240 mg/dL Borderline >240 mg/dL High Risk Triglyceride [Mass/Vol] 176 mg/dL <199 [facility] Comment on above: The drugs N-Acetylcy steine and Metamizole may falsely depress this assay.Serum Triglycerides Reference Interval Normal <150 mg/dL Borderline high 150 - 199 mg/dL High 200 - 499 mg/dL Very High > or = 500 mg/dL [facility] 08-08-2022 [facility] Telephone (AGSPHWG) ---- TORI GRAY ([id number]) 1980 F Date Time Provider Department 08/08/22 YVES, ADELINA Krystle AGSPHWG During your visit today, we recorded [...] place the order. Thank you, Adelina Mason APRN.STEP DOWN SPECIALIST Lisashayy Lidia 08/10/2022 2:13 PM Signed Left patient a detailed message informing her of this information. Also left the number for her to call back. Allergies As of Date: 08/08/2022 Noted Allergy Reaction LIDOCAINE 12/24/2019 4 - Hives STEROIDS (BETAMETHASONE DIPROPION* 2 4 - Hives Date Reviewed: 07/19/2022 Reviewed by: Karen Bansal APRN.STEP DOWN SPECIALIST - Fully Assessed Reason for Visit: Patient [...] bed with current PAP mask. - Ipratropium [place] (ATROVENT) 0.03 % nasal spray Use 2 Sprays in the nose every 12 hours. - metroNIDAZOLE (METROGEL) 0.75 % Topical Gel Apply to affected area twice daily. - Valentine-3 Fatty Acids (FISH OIL) 500 mg cap Take 1 capsule by mouth once daily. - blood sugar diagnostic (BLOOD GLUCOSE TEST) test strip Test blood sugar(s) 1 times daily. Dx: Type 2 DM - Controlled E11.9 Insulin: Yes - Lancets lancets Test blood sugar(s) 1 times daily. Dx: Type 2 DM - Controlled E11.9 Insulin: No - Wmwdrdxm-Ab-Dao-Fe- FA tab Take 1 tablet by mouth [...] 01/23/2010 Routine general medical examination at a regional medical center*01/23/2010 12/06/2012 Class: Chronic Routine gynecological [...] Encounter Status:Closed by ADELINA MASON on 08/08/22 [facility] No Panel InformationOrdered By: Dr. Grimes on 08-08-2022 Thyroid Stimulating Hormone (TSH) 3.38 uIU/mL 0.358-3.74 [facility] Serum or plasma cholesterol in HDL measurement (mass/volume)Ordered By: Dr. Grimes on 08-08-2022 Cholesterol in HDL [Mass/Vol] 37 mg/dL >40 [facility] Comment on above: The drugs N-Acetylcy steine and Metamizole may falsely depress this assay. Reference Range HDL <40 mg/dL Low HDL Cholesterol HDL >or= 60 mg/dL High HDL Cholesterol Serum or plasma cholesterol in VLDL measurement (mass/volume)Ordered By: Dr. Grimes on 08-08-2022 Cholesterol in VLDL [Mass/Vol] 35 mg/dL 5-40 [facility] Serum or plasma low density lipoprotein (LDL) cholesterol measurement (mass/volume)Ordered By: Dr. Grimes on 08-08-2022 Cholesterol in LDL [Mass/Vol] 96 mg/dL 0-130 [facility] Whole blood hemoglobin A1c/t otal hemoglobin ratio (mass fraction)Ordered By: Dr. Grimes on 08-08-2022 HbA1c (Bld) [Mass fraction] 5.3 % 3.8-5.6 [facility] Comment on above: Normal < 5.7 % Predi abetic 5.7 - 6.4 % Diabetic >or= 6.5 % Please note range changes. CNCOon 07-19-2022 CNCO Letter Text Normal [facility] CNOVon 07-19-2022 CNOV Office Visit (SPAGWO) ---- TORI GRAY ([id number]) 1980 F Date Time Provider Department 07/19/22 [...] The patient is not nervous/anxious. Adelina Mason APRN.STEP DOWN SPECIALIST 07/19/2022 10:17 AM Signed [facility] Today's Date: 07/19/2022 Last Visit: 05/24/22 Name: Rosiechelsey Love Isaac : 1980 Purpose: Established Patient Encounter Interval [...] (A) 74 - 99 mg/dL Final Comment: Location:[facility], [address] [place] [address] [address], [place], [place], [address] The Accu-Chek Inform II glucose meter has [...] IMPROVEMENT 05/09/22 LEFT suprascapular NB 75% Compliance: [facility] website checked and validated. All prescriptions have been APPROPRIATELY filled. No suspicious activity was identified. 07/19/2022 by Adelina Mason APRN.STEP DOWN SPECIALIST Last Drug screen: Not Applicable Risk Assessment: VAHE-7: (more content not included)... Normal [facility] CNPNon 07-19-2022 CNPN Telephone (SPAGWO) ---- TORI GRAY ([id number]) 1980 F Date Time Provider Department 07/19/22 ELLE SANCHEZ SPAGWO During your visit today, we recorded the following information about you: Pankaj Lidia 07/19/2022 11:15 AM Signed 1.Are you diabetic [...] year? Yes If yes, When and Where? [facility], currently attending (Medical Records Release needs [...] Date Reviewed: 07/19/2022 Reviewed by: Adelina Mason APRN.STEP DOWN SPECIALIST - Fully Assessed Reason for Visit: Patient [...] bed with current PAP mask. - Ipratropium [place] (ATROVENT) 0.03 % nasal spray Use 2 Sprays in the nose every 12 hours. - metroNIDAZOLE (METROGEL) 0.75 % Topical Gel Apply to affected area twice daily. - Valentine-3 Fatty Acids (FISH OIL) 500 mg cap Take 1 capsule by mouth once daily. - blood sugar diagnostic (BLOOD GLUCOSE TEST) test strip Test blood sugar(s) 1 times daily. Dx: Type 2 DM - Controlled E11.9 Insulin: Yes - Lancets lancets Test blood sugar(s) 1 times daily. Dx: Type 2 DM - Controlled E11.9 Insulin: No - Uztunvqy-Ss-Bnc-Fe- FA tab Take 1 tablet by mouth [...] 01/23/2010 Routine general medical examination at a regional medical center*01/23/2010 12/06/2012 Class: Chronic Routine gynecological examination [Z01.419] 01/23/2010 02/22/2014 Class: Chronic Morbid Obesity [E66.01] 01/23/2010 Lumbar Disc Disorder [M51.9] 02/16/2010 Routine general medical examination at [facility]*12/06/2012 02/22/2014 Anxiety [F41.9] 06/07/2014 Type 2 diabetes mellitus with microalbuminuria,*0 07/04/2018 Fatty liver [K76.0] 07/21/2018 LETITIA (obstructive sleep apnea) [G47 (more content not included)... Normal [facility] Absolute lymphocyte counton 06-05-2022 Lymphocytes Auto (Unsp spec) [#/Vol] 2.26 10*3/uL 0.83-4.51 [facility] Work Phone: Absolute reticulocyte counto n 06-05-2022 Reticulocytes (Bld) [#/Vol] 0.00 10*3/uL 0-5 [facility] Work Phone: Basophil percentageon 2021 Basophil percentage 3.4 mg/dL 2.5-4.9 [facility] Work Phone: Bilirubin [Mass/Vol] 0.60 mg/dL 0.20-1.00 [facility] Work Phone: Comment on above: For patients on eltr ombopag therapy, use of Dimension [place] TBIL is not recommended. Chloride [Moles/Vol] 108 mmol/L 98-107 [facility] Work Phone: Cholesterol [Mass/Vol] 180 mg/dL <200 [facility] Work Phone: Comment on above: <200 mg/dL Desirable 200-240 mg/dL Borderline >240 mg/dL High Risk Glucose [Mass/Vol] 100 mg/dL 74-106 [facility] Work Phone: Comment on above: Fasting Glucose resu lt from 100 to 125 mg/dL suggests IMPAIRED HOMEOSTASIS per A.D.A. criteria. Neutrophils (Bld) [#/Vol] 5.5 10*3/uL 2.0-7.7 [facility] Work Phone: Potassium [Moles/Vol] 3.6 mmol/L 3.5-5.1 [facility] Work Phone: Protein [Mass/Vol] 8.2 g/dL 6.4-8.2 [facility] Work Phone: Sodium [Moles/Vol] 137 mmol/L 136-145 [facility] Work Phone: Triglyceride [Mass/Vol] 418 mg/dL <199 [facility] Work Phone: Comment on above: The drugs N-Acetylcy steine and Metamizole may falsely depress this assay. TRIGLYCERIDE IS GREATER THAN 400 mg/dL. LDL RESULT IS INVALID AND WILL NOT BE REPORTED.Serum Triglycerides Reference Interval Normal <150 mg/dL Borderline high 150 - 199 mg/dL High 200 - 499 mg/dL Very High > or = 500 mg/dL WBC (Bld) [#/Vol] 8.6 10*3/uL 4.4-11.0 [facility] Work Phone: Bilirubin Test strip Ql (U)o n 06-05-2022 Bilirubin Ql (U) Negative Negative [facility] Work Phone: Blood erythrocytes count (nu mber/volume)on 06-05-2022 RBC (Bld) [#/Vol] 4.49 10*6/uL 4.2-5.4 [facility] Work Phone: Blood hemoglobin measurement (mass/volume)on 06-05-2022 Hemoglobin (Bld) [Mass/Vol] 14.0 g/dL 12.0-15.0 [facility] Work Phone: Blood platelet mean volumeon 06-05-2022 Platelet mean volume (Bld) [Entitic vol] 9.2 fL 6.2-12.0 [facility] Work Phone: Determination of erythrocyte mean corpuscular volume (MCV)on 06-05-2022 MCV (RBC) [Entitic vol] 92.7 fL 81-99 [facility] Work Phone: Direct bilirubinon Bilirubin.direct [Mass/Vol] 0.11 mg/dL 0.00-0.30 [facility] Work Phone: Hematocrit Auto (Bld) [Volum e fraction]on 06-05-2022 Hematocrit (Bld) [Volume fraction] 41.6 % 37-47 [facility] Work Phone: Ketones Test strip Ql (U)on 06-05-2022 Ketones Ql (U) Negative Negative [facility] Work Phone: Laboratory - Chemistry and C hemistry - challengeon 06-05-2022 ALP [Catalytic activity/Vol] 73 U/L 45-117 [facility] Work Phone: ALT [Catalytic activity/Vol] 24 U/L 13-56 [facility] Work Phone: Cholesterol.total/Choles terol in HDL [Mass ratio] 5.50 {ratio} [facility] Work Phone: CO2 [Moles/Vol] 25.0 mmol/L 21.0-32.0 [facility] Work Phone: Globulin (S) [Mass/Vol] 4.1 g/dL 2.2-4.2 [facility] Work Phone: Urea nitrogen/Creatinine [Mass ratio] 16.6 mg/mg 10-20 [facility] Work Phone: Laboratory - Hematology and Cell countson 06-05-2022 Erythrocyte distribution width (RBC) [Entitic vol] 44.2 fL 35.1-43.9 [facility] Work Phone: Erythrocyte distribution width (RBC) [Ratio] 13.2 % 11.6-14.6 [facility] Work Phone: MCH (RBC) [Entitic mass] 31.2 pg 27.0-32.0 [facility] Work Phone: Nucleated RBC/100 WBC (Bld) [Ratio] 0 % 0-5 [facility] Work Phone: MCHC Auto (RBC) [Mass/Vol]on 06-05-2022 MCHC (RBC) [Mass/Vol] 33.7 g/dL 32-36 [facility] Work Phone: Nitrite Test strip Ql (U)on 06-05-2022 Nitrite Ql (U) Negative Negative [facility] Work Phone: No Panel Informationon 06-05 Estimated GFR (MDRD) Amer 115 mL/min >60 [facility] Work Phone: Comment on above: GFR Calc Estimated GFR (MDRD) Non-Af Amer 95 mL/min >60 [facility] Work Phone: Comment on above: Non- GFR Calc Platelets bldon 06-05-2022 Platelets (Bld) [#/Vol] 200 10*3/uL 150-450 [facility] Work Phone: Protein Test strip Ql (U)on 06-05-2022 Protein Ql (U) 15 mg/dl Negative [facility] Work Phone: Segmented neutrophils/100 WB C Auto (Bld)on 06-05-2022 Segmented neutrophils/100 WBC (Bld) 64.3 % 47-70 [facility] Work Phone: Serum or plasma albumin sharron urement (mass/volume)on 06-05-2022 Albumin [Mass/Vol] 4.1 g/dL 3.2-5.0 [facility] Work Phone: Serum or plasma albumin/glob ulin mass ratioon 06-05-2022 Albumin/Globulin [Mass ratio] 1.0 {ratio} 0.9-2.4 [facility] Work Phone: Serum or plasma calcium sharron urement (mass/volume)on 06-05-2022 Calcium [Mass/Vol] 8.7 mg/dL 8.5-10.1 [facility] Work Phone: Serum or plasma cholesterol in HDL measurement (mass/volume)on 06-05-2022 Cholesterol in HDL [Mass/Vol] 33 mg/dL >40 [facility] Work Phone: Comment on above: The drugs N-Acetylcy steine and Metamizole may falsely depress this assay. Reference Range HDL <40 mg/dL Low HDL Cholesterol HDL >or= 60 mg/dL High HDL Cholesterol Serum or plasma cholesterol in VLDL measurement (mass/volume)on 06-05-2022 Cholesterol in VLDL [Mass/Vol] [facility] Work Phone: Comment on above: Test not performed Serum or plasma creatinine m easurement (mass/volume)on 06-05-2022 Creatinine [Mass/Vol] 0.72 mg/dL 0.55-1.02 [facility] Work Phone: Comment on above: The validity of the calculated GFR & GFRAA in patients over 70 years has not been determined. Clinical correlation is essential. Serum or plasma low density lipoprotein (LDL) cholesterol measurement (mass/volume)on 06-05-2022 Cholesterol in LDL [Mass/Vol] [facility] Work Phone: Comment on above: Test not performed Serum or plasma urea nitroge n measurement (mass/volume)on 06-05-2022 Urea nitrogen [Mass/Vol] 12 mg/dL 7-18 [facility] Work Phone: Serum or plasma uric acid me asurement (mass/volume)on 06-05-2022 Urate [Mass/Vol] 5.6 mg/dL 2.6-6.0 [facility] Work Phone: Comment on above: The drugs N-Acetylcy steine and Metamizole may falsely depress this assay. Thin prep Papanicolaou smear with manual screeningon 06-05-2022 Thin prep Papanicolaou smear with manual screening 14 U/L 15-37 [facility] Work Phone: Thin prep Papanicolaou smear with manual screening 4 5-15 [facility] Work Phone: Thin prep Papanicolaou smear with manual screening 152 U/L 84-246 [facility] Work Phone: Urine blood detectionon 08-0 RBC Ql (U) Negative Negative [facility] Work Phone: Urine clarityon 06-05-2022 Clarity (U) Sl. Cloudy Clear [facility] Work Phone: Urine color determinationon 06-05-2022 Color (U) Yellow Yellow [facility] Work Phone: Urine glucose detectionon Glucose Ql (U) Normal mg/dl Normal [facility] Work Phone: Urine leukocyte esterase det ection by dipstickon 06-05-2022 Leukocyte esterase Test strip Ql (U) 500 /ul Negative [facility] Work Phone: Urine pHon 06-05-2022 pH (U) 5.0 [pH] 5.0 - 8.0 [facility] Work Phone: Urine specific gravity measu rementon 06-05-2022 Specific gravity (U) [Rel density] 1.020 1.002-1.030 [facility] Work Phone: Urobilinogen Auto test strip Ql (U)on 06-05-2022 Urobilinogen Ql (U) Normal mg/dl Normal [facility] Work Phone: CNOVon 05-24-2022 CNOV Office Visit (SPAGWO) ---- TORI GRAY ([id number]) 1980 F Date Time Provider Department 05/24/22 11:00 AM ADELINA MASON SPAGWO During your visit today, [...] The patient is not nervous/anxious. 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 Normal [facility] CNPNon 05-11-2022 CNPN Telephone (AGSPHWG) ---- ISAACTORI ([id number]) 1980 F Date Time Provider Department 05/11/22 [...] bed with current PAP mask. - Ipratropium [place] (ATROVENT) 0.03 % nasal spray Use 2 Sprays in the nose every 12 hours. - metroNIDAZOLE (METROGEL) 0.75 % Topical Gel Apply to affected area twice daily. - Valentine-3 Fatty Acids (FISH OIL) 500 mg cap Take 1 capsule by mouth once daily. - blood sugar diagnostic (BLOOD GLUCOSE TEST) test strip Test blood sugar(s) 1 times daily. Dx: Type 2 DM - Controlled E11.9 Insulin: Yes - Lancets lancets Test blood sugar(s) 1 times daily. Dx: Type 2 DM - Controlled E11.9 Insulin: No - Uhoobrgc-Ev-Vqq-Fe- FA ( FORMULA) ORAL Tab Take 1 [...] 01/23/2010 Routine general medical examination at a regional medical center*01/23/2010 12/06/2012 Class: Chronic Routine gynecological examination [Z01.419] 01/23/2010 02/22/2014 Class: Chronic Morbid Obesity [E66.01] 01/23/2010 Lumbar Disc Disorder [M51.9] 02/16/2010 Routine general medical examination at [facility]*12/06/2012 02/22/2014 Anxiety [F41.9] 06/07/2014 Type 2 diabetes mellitus with microalbuminuria,*0 07/04/2018 Fatty liver [K76.0] 07/21/2018 LETITIA (obstructive sleep apnea) [G47.33] 07/21/2018 Microalbuminuria [R80.9] 09/30/2018 Obesity, Class III, BMI >= 40 [E66.01] 11/26/2019 Prolonged Q-T interval on ECG [R94.31] 03/31/2020 Encounter Status:Closed by LIVIA LUNA on 05/11/22 Normal [facility] GLUCOSE, BLOOD (POC)on 05-10 Glucose [Mass/Vol] 104 mg/dL Abnormal 74 - 99 mg/dL [facility] CNCOon 03-29-2022 CNCO Letter Text Normal [facility] CNOVon 03-29-2022 CNOV Office Visit (SPAGWO) ---- TORI GRAY ([id number]) 1980 F Date Time Provider Department 03/29/22 11:00 AM ELLE SANCHEZ During your visit today, we recorded the following information about you: Pulse Respiration Normal [facility] CNPNon 03-29-2022 CNPN Telephone (SPAGWO) ---- TORI GRAY ([id number]) 1980 F Date Time Provider Department 03/29/22 [...] bed with current PAP mask. - Ipratropium [place] (ATROVENT) 0.03 % nasal spray Use 2 Sprays in the nose every 12 hours. - metroNIDAZOLE (METROGEL) 0.75 % Topical Gel Apply to affected area twice daily. - Valentine-3 Fatty Acids (FISH OIL) 500 mg cap Take 1 capsule by mouth once daily. - blood sugar diagnostic (BLOOD GLUCOSE TEST) test strip Test blood sugar(s) 1 times daily. Dx: Type 2 DM - Controlled E11.9 Insulin: Yes - Lancets lancets Test blood sugar(s) 1 times daily. Dx: Type 2 DM - Controlled E11.9 Insulin: No - Hsswtqxe-Gk-Msi-Fe- FA ( FORMULA) ORAL Tab Take 1 [...] 01/23/2010 Routine general medical examination at a regional medical center*01/23/2010 12/06/2012 Class: Chronic Routine gynecological examination [Z01.419] 01/23/2010 02/22/2014 Class: Chronic Morbid Obesity [E66.01] 01/23/2010 Lumbar Disc Disorder [M51.9] 02/16/2010 Routine general medical examination at [facility]*12/06/2012 02/22/2014 Anxiety [F41.9] 06/07/2014 Type 2 diabetes mellitus with microalbuminuria,*0 07/04/2018 Fatty liver [K76.0] 07/21/2018 LETITIA (obstructive sleep apnea) [G47.33] 07/21/2018 Microalbuminuria [R80.9] 09/30/2018 Obesity, Class III, BMI >= 40 [E66.01] 11/26/2019 Prolo (more content not included)... Normal [facility] Basophil percentageon 2021 Cholesterol [Mass/Vol] 178 mg/dL <200 [facility] Comment on above: <200 mg/dL Desirable 200-240 mg/dL Borderline >240 mg/dL High Risk Triglyceride [Mass/Vol] 183 mg/dL C [facility] Comment on above: The drugs N-Acetylcy steine and Metamizole may falsely depress this assay.Serum Triglycerides Reference Interval Normal <150 mg/dL Borderline high 150 - 199 mg/dL High 200 - 499 mg/dL Very High > or = 500 mg/dL Bilirubin [Mass/Vol] 0.30 mg/dL 0.20-1.00 [facility] Work Phone: Comment on above: For patients on eltr ombopag therapy, use of Dimension [place] TBIL is not recommended. Chloride [Moles/Vol] 109 mmol/L 98-107 [facility] Work Phone: Glucose [Mass/Vol] 126 mg/dL 74-106 [facility] Work Phone: Comment on above: Fasting Glucose resu lt greater than or equal to 126 mg/dL suggests DIABETES MELLITUS per A.D.A. criteria. Potassium [Moles/Vol] 4.1 mmol/L 3.5-5.1 [facility] Work Phone: Protein [Mass/Vol] 8.4 g/dL 6.4-8.2 [facility] Work Phone: Sodium [Moles/Vol] 136 mmol/L 136-145 [facility] Work Phone: WBC (Bld) [#/Vol] 9.6 10*3/uL 4.4-11.0 [facility] Work Phone: Blood erythrocytes count (nu mber/volume)on 02-07-2022 RBC (Bld) [#/Vol] 4.63 10*6/uL 4.2-5.4 [facility] Work Phone: Blood hemoglobin measurement (mass/volume)on 02-07-2022 Hemoglobin (Bld) [Mass/Vol] 14.2 g/dL 12.0-15.0 [facility] Work Phone: Blood platelet mean volumeon 02-07-2022 Platelet mean volume (Bld) [Entitic vol] 9.5 fL 6.2-12.0 [facility] Work Phone: Determination of erythrocyte mean corpuscular volume (MCV)on 02-07-2022 MCV (RBC) [Entitic vol] 91.6 fL 81-99 [facility] Work Phone: Hematocrit Auto (Bld) [Volum e fraction]on 02-07-2022 Hematocrit (Bld) [Volume fraction] 42.4 % 37-47 [facility] Work Phone: LIPID PANEL (OUTSIDE)on VLDL Cholesterol 37 [facility] Laboratory - Chemistry and C hemistry - challengeon 02-07-2022 ALP [Catalytic activity/Vol] 87 U/L 45-117 [facility] Work Phone: ALT [Catalytic activity/Vol] 29 U/L 13-56 [facility] Work Phone: CO2 [Moles/Vol] 23.0 mmol/L 21.0-32.0 [facility] Work Phone: Globulin (S) [Mass/Vol] 4.3 g/dL 2.2-4.2 [facility] Work Phone: Magnesium [Mass/Vol] 1.7 mg/dL 1.6-2.6 [facility] Work Phone: Urea nitrogen/Creatinine [Mass ratio] 15.1 mg/mg 10-20 [facility] Work Phone: Laboratory - Hematology and Cell countson 02-07-2022 Erythrocyte distribution width (RBC) [Entitic vol] 43.8 fL 35.1-43.9 [facility] Work Phone: Erythrocyte distribution width (RBC) [Ratio] 13.2 % 11.6-14.6 [facility] Work Phone: MCH (RBC) [Entitic mass] 30.7 pg 27.0-32.0 [facility] Work Phone: MCHC Auto (RBC) [Mass/Vol]on 02-07-2022 MCHC (RBC) [Mass/Vol] 33.5 g/dL 32-36 [facility] Work Phone: MICROALBUMIN/CREATININE UR W RATIO (EXTERNAL)on 02-07-2022 Albumin/Creat Ratio 153.4 [facility] Creatinine Urine 189 [facility] Microalbumin, Random urine 290 [facility] No Panel Informationon 02-07 Urine Microalbumin/Creatinine Ratio 153.4 mg/g CRE <30 [facility] Work Phone: Estimated GFR (MDRD) Amer 114 mL/min >60 [facility] Work Phone: Comment on above: GFR Calc Estimated GFR (MDRD) Non-Af Amer 94 mL/min >60 [facility] Work Phone: Comment on above: Non- GFR Calc Thyroid Stimulating Hormone (TSH) 2.76 uIU/mL 0.358-3.74 [facility] Work Phone: Platelets bldon 02-07-2022 Platelets (Bld) [#/Vol] 223 10*3/uL 150-450 [facility] Work Phone: Serum or plasma albumin sharron urement (mass/volume)on 02-07-2022 Albumin [Mass/Vol] 4.1 g/dL 3.2-5.0 [facility] Work Phone: Serum or plasma albumin/glob ulin mass ratioon 02-07-2022 Albumin/Globulin [Mass ratio] 1.0 {ratio} 0.9-2.4 [facility] Work Phone: Serum or plasma calcium sharron urement (mass/volume)on 02-07-2022 Calcium [Mass/Vol] 8.8 mg/dL 8.5-10.1 [facility] Work Phone: Serum or plasma cholesterol in HDL measurement (mass/volume)on 02-07-2022 Cholesterol in HDL [Mass/Vol] 37 mg/dL [facility] Comment on above: The drugs N-Acetylcy steine and Metamizole may falsely depress this assay. Reference Range HDL <40 mg/dL Low HDL Cholesterol HDL >or= 60 mg/dL High HDL Cholesterol Serum or plasma cholesterol in VLDL measurement (mass/volume)on 02-07-2022 Cholesterol in VLDL [Mass/Vol] 37 mg/dL 5-40 [facility] Work Phone: Serum or plasma creatinine m easurement (mass/volume)on 02-07-2022 Creatinine [Mass/Vol] 0.73 mg/dL 0.55-1.02 [facility] Work Phone: Comment on above: The validity of the calculated GFR & GFRAA in patients over 70 years has not been determined. Clinical correlation is essential. Serum or plasma low density lipoprotein (LDL) cholesterol measurement (mass/volume)on 02-07-2022 Cholesterol in LDL [Mass/Vol] 104 mg/dL 0-130 [facility] Serum or plasma urea nitroge n measurement (mass/volume)on 02-07-2022 Urea nitrogen [Mass/Vol] 11 mg/dL 7-18 [facility] Work Phone: TSH (EXTERNAL)on 02-07-2022 TSH 2.76 IU/ml 0.2 - 5.6 IU/ml [facility] Thin prep Papanicolaou smear with manual screeningon 02-07-2022 Thin prep Papanicolaou smear with manual screening 290.0 mg/L NO RANGE EST. [facility] Work Phone: Thin prep Papanicolaou smear with manual screening 13 U/L 15-37 [facility] Work Phone: Thin prep Papanicolaou smear with manual screening 4 5-15 [facility] Work Phone: Urine creatinine measurement (mass/volume)on 02-07-2022 Creatinine (U) [Mass/Vol] 189.00 mg/dL NO RANGE EST. [facility] Work Phone: Whole blood hemoglobin A1c/t otal hemoglobin ratio (mass fraction)on 02-07-2022 HbA1c (Bld) [Mass fraction] 5.1 % 3.8-5.6 [facility] Comment on above: Normal < 5.7 % Predi abetic 5.7 - 6.4 % Diabetic >or= 6.5 % Please note range changes. Hany 01-29-2022 GABRIELAN Telephone (AGSPINE3) ---- TORI GRAY ([id number]) 1980 F Date Time Provider Department 01/29/22 [...] by phone, Left brief message on cell [employer] stating to call and schedule. Darrion Carson [...] bed with current PAP mask. - Ipratropium [place] (ATROVENT) 0.03 % nasal spray Use 2 Sprays in the nose every 12 hours. - metroNIDAZOLE (METROGEL) 0.75 % Topical Gel Apply to affected area twice daily. - Valentine-3 Fatty Acids (FISH OIL) 500 mg cap Take 1 capsule by mouth once daily. - blood sugar diagnostic (BLOOD GLUCOSE TEST) test strip Test blood sugar(s) 1 times daily. Dx: Type 2 DM - Controlled E11.9 Insulin: Yes - Lancets lancets Test blood sugar(s) 1 times daily. Dx: Type 2 DM - Controlled E11.9 Insulin: No - Wcgqgavv-Im-Exs-Fe- FA ( FORMULA) ORAL Tab Take 1 [...] 05/06/2009 01/23/2010 Routine general medical examination at [facility]*01/23/2010 12/06/2012 Class: Chronic Routine gynecological examination [Z01.419] 01/23/2010 02/22/2014 Class: Chronic Morbid Obesity [E66.01] 01/23/2010 Lumbar Disc Disorder [M51.9] 02/16/2010 Routine general medical examination at [facility]*12/06/2012 02/22/2014 Anxiety [F41.9] 06/07/2014 Type 2 diabetes mellitus with microalbuminuria,*0 07/04/2018 Fatty liver [K76.0] 07/21/2018 LETITIA (obstructive sleep apnea) [G47.33] 07/21/2018 Microalbuminuria [R80.9] 09/30/2018 Obesity, Class III, BMI >= 40 [E66.01] 11/26/2019 Prolonged Q-T interval on ECG [R94.31] 03/31/2020 Encounter Status:Closed by DARRION CARSON on 01/30/22 [facility] Laboratory - Microbiology an d Antimicrobial susceptibilityon 11-21-2021 SARS-CoV-2 (COVID-19) RNA ALLYSON+probe Ql (Unsp spec) Not detected [facility] Work Phone: Office Visit: Jojo Removal, possible other optionson 09-09-2017 Documentation of current medications (procedure) Done Invalid Interpretation Code [facility] Fall risk assessment No Invalid Interpretation Code [facility] Tobacco smoking status NHIS Never Invalid Interpretation Code [facility] Tobacco use [facility] Never smoker Invalid Interpretation Code [facility] Office Visit: Spine Visit- L ow back pain BWCon 09-05-2017 Documentation of current medications (procedure) Done Invalid Interpretation Code [facility] Work Phone: Office Visit: Spine Visit- L ow back painon 09-03-2017 Documentation of current medications (procedure) Done Invalid Interpretation Code [facility] Work Phone: Office Visit: Spine Visit- L ow back BWCon 08-22-2017 Documentation of current medications (procedure) Done Invalid Interpretation Code [facility] Work Phone: Office Visiton 08-09-2017 Dietary management education, guidance, and counseling (procedure) yes Invalid Interpretation Code [facility] Work Phone: Tobacco smoking status NHIS Never Invalid Interpretation Code [facility] Work Phone: Tobacco use CPHS Never smoker Invalid Interpretation Code [facility] Work Phone: Office Visit: BWC: low back painon 05-02-2017 Fall risk assessment No Invalid Interpretation Code [facility] Work Phone: Office Visit: Jojo Removal, possible other optionson 06-04-2014 General categories [Interpretation] of Cervical or vaginal smear or scraping by Cyto stain Normal Invalid Interpretation Code [facility] Vital Signs Date Time Vital Sign Value Performing Clinician Facility 06-23-2025 09:45-0400 Body temperature 96.6 [degF] Dr. Ivette Grimes MD Work Phone: [facility] 06-23-2025 09:45-0400 Diastolic blood pressure 60 mm[Hg] Dr. Ivette Grimes MD Work Phone: [facility] 06-23-2025 09:45-0400 Heart rate 65 /min Dr. Ivette Grimes MD Work Phone: [facility] 06-23-2025 09:45-0400 Respiratory rate 16 /min Dr. Ivette Grimes MD Work Phone: [facility] 06-23-2025 09:45-0400 SaO2% (BldA) [Mass fraction] 95 % Dr. Ivette Grimes MD Work Phone: [facility] 06-23-2025 09:45-0400 Systolic blood pressure 112 mm[Hg] Dr. Ivette Grimes MD Work Phone: [facility] 06-23-2025 09:15-0400 Inhaled oxygen flow rate 2 L/min Dr. Ivette Grimes MD Work Phone: [facility] 06-23-2025 06:40-0400 Body height 170.[address] Ivette Grimes MD Work Phone: [facility] 06-23-2025 06:40-0400 Body mass index (BMI) [Ratio] 43.4 kg/m2 Dr. Ivette Grimes MD Work Phone: [facility] 06-23-2025 06:40-0400 Body weight [address] Ivette Grimes MD Work Phone: [facility] 06-07-2025 18:27-0400 Body mass index (BMI) [Ratio] 44.26 kg/m2 Ivette Grimes MD Work Phone: [facility] 06-07-2025 18:27-0400 Body weight 128.19 kg Ivette Grimes MD Work Phone: [facility] 06-07-2025 18:27-0400 Diastolic blood pressure 80 mm[Hg] Ivette Grimes MD Work Phone: [facility] 06-07-2025 18:27-0400 Heart rate 78 /min Ivette Grimes MD Work Phone: [facility] 06-07-2025 18:27-0400 SaO2% (BldA) [Mass fraction] 98 % Ivette Grimes MD Work Phone: [facility] 06-07-2025 18:27-0400 Systolic blood pressure 132 mm[Hg] Ivette Grimes MD Work Phone: [facility] 05-06-2025 10:04-0400 Body height 170.[address] Ivette Grimes MD Work Phone: [facility] 05-06-2025 10:04-0400 Body mass index (BMI) [Ratio] 43 kg/m2 Dr. Ivette Grimes MD Work Phone: [facility] 05-06-2025 10:04-0400 Body weight 124.[address] Ivette Grimes MD Work Phone: [facility] 03-22-2025 09:08-0400 Body height 170.[address] Ivette Grimes MD Work Phone: [facility] 01-22-2025 15:43-0400 Body mass index (BMI) [Ratio] 44.17 kg/m2 Ivette Grimes MD Work Phone: [facility] 01-22-2025 15:43-0400 Body weight 127.91 kg Ivette Grimes MD Work Phone: [facility] 01-22-2025 15:43-0400 Diastolic blood pressure 72 mm[Hg] Ivette Grimes MD Work Phone: [facility] 01-22-2025 15:43-0400 Heart rate 77 /min Ivette Grimes MD Work Phone: [facility] 01-22-2025 15:43-0400 SaO2% (BldA) [Mass fraction] 97 % Ivette Grimes MD Work Phone: [facility] 01-22-2025 15:43-0400 Systolic blood pressure 122 mm[Hg] Ivette Grimes MD Work Phone: [facility] 12-11-2024 11:08-0500 Body mass index (BMI) [Ratio] 43.4 kg/m2 Jenni Martínez APRN.STEP DOWN SPECIALIST Work Phone: [facility] 12-11-2024 11:08-0500 Body temperature 97.81 [degF] Jenni Martínez [employer] CONDITIONING UNIT ASSEMBLER.STEP DOWN SPECIALIST Work Phone: [facility] 12-11-2024 11:08-0500 Body weight 125.7 kg Jenni Martínez AIR CONDITIONING UNIT ASSEMBLER.STEP DOWN SPECIALIST Work Phone: [facility] 12-11-2024 11:08-0500 Diastolic blood pressure 74 mm[Hg] Jenni Martínez AIR CONDITIONING UNIT ASSEMBLER.STEP DOWN SPECIALIST Work Phone: [facility] 12-11-2024 11:08-0500 Heart rate 72 /min Jenni Martínez AIR CONDITIONING UNIT ASSEMBLER.STEP DOWN SPECIALIST Work Phone: [facility] 12-11-2024 11:08-0500 Respiratory rate 16 /min Jenni Martínez AIR CONDITIONING UNIT ASSEMBLER.STEP DOWN SPECIALIST Work Phone: 8(167)849-993267 [place] [address] 12-11-2024 11:08-0500 SaO2% (BldA) [Mass fraction] 99 % Jenni Martínez AIR CONDITIONING UNIT ASSEMBLER.STEP DOWN SPECIALIST Work Phone: 4(705)403-511567 [place] [address] 12-11-2024 11:08-0500 Systolic blood pressure 138 mm[Hg] Jenni Martínez AIR CONDITIONING UNIT ASSEMBLER.STEP DOWN SPECIALIST Work Phone: 6(576)153-285367 [place] [address] 11-11-2024 12:34-0500 Heart rate 74 /min Dr. Ivette Grimes MD Work Phone: 2(746)897-306968 [place] [address] 11-11-2024 12:34-0500 Respiratory rate 20 /min Dr. Ivette Grimes MD Work Phone: 0(840)016-123668 [place] [address] 11-11-2024 12:34-0500 SaO2% (BldA) [Mass fraction] 100 % Dr. Ivette Grimes MD Work Phone: 3(764)665-867968 [place] [address] 11-11-2024 11:00-0500 Diastolic blood pressure 60 mm[Hg] Dr. Ivette Grimes MD Work Phone: 6(371)146-241868 [place] [address] 11-11-2024 11:00-0500 Systolic blood pressure 108 mm[Hg] Dr. Ivette Grimes MD Work Phone: 7(397)233-991068 [place] [address] 11-11-2024 05:55-0500 Body height 170.[address] Ivette Grimes MD Work Phone: 9(111)786-181468 [place] [address] 11-11-2024 05:55-0500 Body mass index (BMI) [Ratio] 45.2 kg/m2 Dr. Ivette Grimes MD Work Phone: 0(161)407-975868 [place] [address] 11-11-2024 05:55-0500 Body temperature 97.5 [degF] Dr. Ivette Grimes MD Work Phone: 3(412)779-496968 [place] [address] 11-11-2024 05:55-0500 Body weight [address] Ivette Grimes MD Work Phone: 6(418)318-397468 [place] [address] 10-16-2024 21:50-0500 Body temperature 98 [degF] Dr. Ivette Grimes MD Work Phone: 2(502)824-867187 [place] [address] 10-16-2024 21:50-0500 Diastolic blood pressure 72 mm[Hg] Dr. Ivette Grimes MD Work Phone: 8(272)731-721068 [place] [address] 10-16-2024 21:50-0500 Heart rate 60 /min Dr. Ivette Grimes MD Work Phone: 9(923)505-165068 [place] [address] 10-16-2024 21:50-0500 Respiratory rate 16 /min Dr. Ivette Grimes MD Work Phone: 5(231)887-035068 [place] [address] 10-16-2024 21:50-0500 SaO2% (BldA) [Mass fraction] 95 % Dr. Ivette Grimes MD Work Phone: 9(812)509-584668 [place] [address] 10-16-2024 21:50-0500 Systolic blood pressure 137 mm[Hg] Dr. Ivette Grimes MD Work Phone: 4(507)288-064568 [place] [address] 10-16-2024 20:23-0500 Body mass index (BMI) [Ratio] 43 kg/m2 Dr. Ivette Grimes MD Work Phone: 9(929)101-273687 [place] [address] 10-16-2024 20:23-0500 Body weight 124.[address] Ivette Grimes MD Work Phone: [facility] 09-03-2024 12:51-0400 Body height 170.2 cm Fatuma Beckford PA-C Work Phone: [facility] 09-03-2024 12:51-0400 Body mass index (BMI) [Ratio] 43.8 kg/m2 Fatuma Beckford PA-C Work Phone: [facility] 09-03-2024 12:51-0400 Body weight 126.85 kg Fatuma Beckford PA-C Work Phone: [facility] 09-03-2024 12:51-0400 Diastolic blood pressure 71 mm[Hg] Fatuma Beckford PA-C Work Phone: [facility] 10-31-2024 12:51-0400 Heart rate 67 /min Fatuma Shakeel PA-C Work Phone: [facility] 09-03-2024 12:51-0400 SaO2% (BldA) [Mass fraction] 97 % Fatuma Robertscatherine PA-C Work Phone: [facility] 09-03-2024 12:51-0400 Systolic blood pressure 153 mm[Hg] Fatumarobin Robertscatherine PA-C Work Phone: [facility] 08-05-2024 08:04-0400 Body mass index (BMI) [Ratio] 42.81 kg/m2 Ivette Grimes MD Work Phone: [facility] 08-05-2024 08:04-0400 Body weight 131.5 kg Ivette Grimes MD Work Phone: [facility] 08-05-2024 08:04-0400 Diastolic blood pressure 62 mm[Hg] Ivette Grimes MD Work Phone: [facility] 08-05-2024 08:04-0400 Heart rate 56 /min Ivette Grimes MD Work Phone: [facility] 08-05-2024 08:04-0400 SaO2% (BldA) [Mass fraction] 96 % Ivette Grimes MD Work Phone: [facility] 08-05-2024 08:04-0400 Systolic blood pressure 114 mm[Hg] Ivette Grimes MD Work Phone: [facility] 07-03-2024 15:29-0400 Body mass index (BMI) [Ratio] 41.94 kg/m2 Ivette Grimes MD Work Phone: [facility] 07-03-2024 15:29-0400 Body weight 128.82 kg Ivette Grimes MD Work Phone: [facility] 07-03-2024 15:29-0400 Diastolic blood pressure 82 mm[Hg] Ivette Grimes MD Work Phone: [facility] 07-03-2024 15:29-0400 Heart rate 78 /min Ivette Grimes MD Work Phone: [facility] 07-03-2024 15:29-0400 SaO2% (BldA) [Mass fraction] 98 % Ivette rGimes MD Work Phone: [facility] 07-03-2024 15:29-0400 Systolic blood pressure 152 mm[Hg] Ivette Grimes MD Work Phone: [facility] 04-02-2024 12:46-0400 Body height 175.3 cm Fatuma Robertser PA-C Work Phone: [facility] 04-02-2024 12:46-0400 Body mass index (BMI) [Ratio] 41.02 kg/m2 Fatuma Robertser PA-C Work Phone: [facility] 04-02-2024 12:46-0400 Body weight 126 kg Fatuma Robertser PA-C Work Phone: [facility] 04-02-2024 12:46-0400 Diastolic blood pressure 77 mm[Hg] Fatuma Robertser PA-C Work Phone: [facility] 04-02-2024 12:46-0400 Heart rate 59 /min Fatuma Robertser PA-C Work Phone: [facility] 04-02-2024 12:46-0400 SaO2% (BldA) [Mass fraction] 99 % Fatuma Robertser PA-C Work Phone: [facility] 04-02-2024 12:46-0400 Systolic blood pressure 135 mm[Hg] Fatuma er PA-C Work Phone: [facility] 02-04-2024 04:03-0400 Body temperature 98 [degF] Dr. Ivette Grimes Work Phone: [facility] 02-04-2024 04:03-0400 Diastolic blood pressure 56 mm[Hg] Dr. Ivette Grimes Work Phone: [facility] 02-04-2024 04:03-0400 Heart rate 59 /min Dr. Ivette Grimes Work Phone: [facility] 02-04-2024 04:03-0400 Respiratory rate 16 /min Dr. Ivette Grimes Work Phone: [facility] 02-04-2024 04:03-0400 SaO2% (BldA) [Mass fraction] 100 % Dr. Ivette Grimes Work Phone: [facility] 02-04-2024 04:03-0400 Systolic blood pressure 107 mm[Hg] Dr. Ivette Grimes Work Phone: [facility] 02-04-2024 01:12-0400 Body height 170.[address] Ivette Grimes Work Phone: [facility] 02-04-2024 01:12-0400 Body mass index (BMI) [Ratio] 43 kg/m2 Dr. Ivette Grimes Work Phone: [facility] 02-04-2024 01:12-0400 Body weight 124.[address] Ivette Grimes Work Phone: [facility] 12-26-2023 10:10-0500 Body height 170.2 cm Fatuma Beckford PA-C Work Phone: [facility] 12-26-2023 10:10-0500 Body weight 123.35 kg Fatuma Robertser PA-C Work Phone: [facility] 12-26-2023 10:10-0500 Diastolic blood pressure 62 mm[Hg] Fatuma Beckford PA-C Work Phone: [facility] 12-26-2023 10:10-0500 Heart rate 68 /min Fatuma Beckford PA-C Work Phone: [facility] 12-26-2023 10:10-0500 Systolic blood pressure 118 mm[Hg] Fatuma Beckford PA-C Work Phone: [facility] 12-10-2023 05:52-0500 Body height 170.[address] Ivette Grimes Work Phone: [facility] 12-10-2023 05:52-0500 Body mass index (BMI) [Ratio] 42.3 kg/m2 Dr. Ivette Grimes Work Phone: [facility] 12-10-2023 05:52-0500 Body temperature 98 [degF] Dr. Ivette Grimes Work Phone: [facility] 12-10-2023 05:52-0500 Body weight 122.[address] Ivette Grimes Work Phone: [facility] 12-10-2023 05:52-0500 Diastolic blood pressure 61 mm[Hg] Dr. Ivette Grimes Work Phone: [facility] 12-10-2023 05:52-0500 Heart rate 68 /min Dr. Ivette Grimes Work Phone: [facility] 12-10-2023 05:52-0500 Respiratory rate 16 /min Dr. Ivette Grimes Work Phone: [facility] 12-10-2023 05:52-0500 SaO2% (BldA) [Mass fraction] 98 % Dr. Ivette Grimes Work Phone: [facility] 12-10-2023 05:52-0500 Systolic blood pressure 108 mm[Hg] Dr. Ivette Grimes Work Phone: [facility] 12-09-2023 17:15-0500 Body weight 122.92 kg Ivette Grimes MD Work Phone: [facility] 12-09-2023 17:15-0500 Diastolic blood pressure 62 mm[Hg] Ivette Grimes MD Work Phone: [facility] 12-09-2023 17:15-0500 Heart rate 60 /min Ivette Grimes MD Work Phone: [facility] 12-09-2023 17:15-0500 SaO2% (BldA) [Mass fraction] 97 % Ivette Grimes MD Work Phone: [facility] 12-09-2023 17:15-0500 Systolic blood pressure 124 mm[Hg] Ivette Grimes MD Work Phone: [facility] 10-27-2023 15:06-0500 Body height 170.18 cm Self Referred [facility] 10-27-2023 15:06-0500 Body mass index (BMI) [Ratio] 43.9 kg/m2 Self Referred [facility] 10-27-2023 15:06-0500 Body temperature 97 [degF] Self Referred [facility] 10-27-2023 15:06-0500 Body weight 127.45 kg Self Referred [facility] 10-27-2023 15:06-0500 Diastolic blood pressure 90 mm[Hg] Self Referred [facility] 10-27-2023 15:06-0500 Heart rate 80 /min Self Referred [facility] 10-27-2023 15:06-0500 Respiratory rate 16 /min Self Referred [facility] 10-27-2023 15:06-0500 SaO2% (BldA) [Mass fraction] 98 % Self Referred [facility] 10-27-2023 15:06-0500 Systolic blood pressure 173 mm[Hg] Self Referred [facility] 08-07-2023 12:17-0400 Body temperature 97.5 [degF] Self Referred [facility] 08-07-2023 12:17-0400 Diastolic blood pressure 75 mm[Hg] Self Referred [facility] 08-07-2023 12:17-0400 Heart rate 53 /min Self Referred [facility] 08-07-2023 12:17-0400 Respiratory rate 14 /min Self Referred [facility] 08-07-2023 12:17-0400 SaO2% (BldA) [Mass fraction] 99 % Self Referred [facility] 08-07-2023 12:17-0400 Systolic blood pressure 119 mm[Hg] Self Referred [facility] 08-07-2023 11:00-0400 Body mass index (BMI) [Ratio] 47.2 kg/m2 Self Referred [facility] 08-05-2023 17:16-0400 Body height 170.18 cm Self Referred [facility] 08-05-2023 17:16-0400 Body weight 136.8 kg Self Referred [facility] 08-05-2023 13:00-0400 Body temperature 97.4 [degF] Dr. Ivette Grimes Work Phone: [facility] 08-05-2023 13:00-0400 Diastolic blood pressure 76 mm[Hg] Dr. Ivette Grimes Work Phone: 1(578)987-361768 [place] [address] 08-05-2023 13:00-0400 Heart rate 58 /min Dr. Ivette Grimes Work Phone: 1(601)259-522868 [place] [address] 08-05-2023 13:00-0400 Respiratory rate 14 /min Dr. Ivette Grimes Work Phone: 2(819)998-725368 [place] [address] 08-05-2023 13:00-0400 SaO2% (BldA) [Mass fraction] 96 % Dr. Ivette Grimes Work Phone: 6(452)714-928668 [place] [address] 08-05-2023 13:00-0400 Systolic blood pressure 156 mm[Hg] Dr. Ivette Grimes Work Phone: 5(399)714-750468 [place] [address] 08-05-2023 11:33-0400 Body mass index (BMI) [Ratio] 47.2 kg/m2 Dr. Ivette Grimes Work Phone: 1(187)198-391768 [place] [address] 08-05-2023 09:51-0400 Body weight 136.[address] Ivette Grimes Work Phone: 9(827)627-544268 [place] [address] 08-05-2023 09:40-0400 Body height 170.[address] Ivette Grimes Work Phone: [facility] 06-07-2023 15:01-0400 Diastolic blood pressure 76 mm[Hg] Ivette Mejia Jr., MD Work Phone: [facility] 06-07-2023 15:01-0400 Heart rate 75 /min Ivette Mejia Jr., MD Work Phone: [facility] 06-07-2023 15:01-0400 Respiratory rate 16 /min Ivette Mejia Jr., MD Work Phone: [facility] 06-07-2023 15:01-0400 SaO2% (BldA) [Mass fraction] 97 % Ivette Mejia Jr., MD Work Phone: [facility] 06-07-2023 15:01-0400 Systolic blood pressure 138 mm[Hg] Ivette Mejia Jr., MD Work Phone: [facility] 06-06-2023 09:39-0400 Body weight 132 kg Ivette Grimes MD Work Phone: [facility] 06-06-2023 09:39-0400 Diastolic blood pressure 81 mm[Hg] Ivette Grimes MD Work Phone: [facility] 06-06-2023 09:39-0400 Heart rate 51 /min Ivette Grimes MD Work Phone: [facility] 06-06-2023 09:39-0400 SaO2% (BldA) [Mass fraction] 98 % Ivette Grimes MD Work Phone: [facility] 06-06-2023 09:39-0400 Systolic blood pressure 129 mm[Hg] Ivette Grimes MD Work Phone: [facility] 05-20-2023 22:47-0400 Diastolic blood pressure 88 mm[Hg] Dr. Ivette Grimes Work Phone: [facility] 05-20-2023 22:47-0400 Heart rate 78 /min Dr. Ivette Grimes Work Phone: [facility] 05-20-2023 22:47-0400 Respiratory rate 18 /min Dr. Ivette Grimes Work Phone: [facility] 05-20-2023 22:47-0400 SaO2% (BldA) [Mass fraction] 100 % Dr. Ivette Grimes Work Phone: [facility] 05-20-2023 22:47-0400 Systolic blood pressure 134 mm[Hg] Dr. Ivette Grimes Work Phone: [facility] 05-20-2023 21:28-0400 Body height 170.[address] Ivette Grimes Work Phone: [facility] 05-20-2023 21:28-0400 Body mass index (BMI) [Ratio] 45.4 kg/m2 Dr. Ivette Grimes Work Phone: [facility] 05-20-2023 21:28-0400 Body temperature 97.5 [degF] Dr. Ivette Grimes Work Phone: [facility] 05-20-2023 21:28-0400 Body weight 131.[address] Ivette Grimes Work Phone: [facility] 05-17-2023 10:04-0400 Body height 170.2 cm Fatuma Robertser PA-C Work Phone: [facility] 05-17-2023 10:04-0400 Body weight 132 kg Fatuma Queener PA-C Work Phone: [facility] 05-17-2023 10:04-0400 Diastolic blood pressure 70 mm[Hg] Fatuma Robertser PA-C Work Phone: [facility] 05-17-2023 10:04-0400 Heart rate 68 /min Fatuma Queener PA-C Work Phone: [facility] 05-17-2023 10:04-0400 SaO2% (BldA) [Mass fraction] 97 % Fatuma Queener PA-C Work Phone: [facility] 05-17-2023 10:04-0400 Systolic blood pressure 123 mm[Hg] Fatuma Queener PA-C Work Phone: [facility] 03-05-2023 12:35-0400 Body temperature 97.81 [degF] Fatuma Queener PA-C Work Phone: [facility] 03-05-2023 12:35-0400 Body weight 130.09 kg Fatuma Queener PA-C Work Phone: [facility] 03-05-2023 12:35-0400 Diastolic blood pressure 76 mm[Hg] Fatuma Queener PA-C Work Phone: [facility] 03-05-2023 12:35-0400 Heart rate 61 /min Fatuma Queener PA-C Work Phone: [facility] 03-05-2023 12:35-0400 Respiratory rate 16 /min Fatuma Beckford PA-C Work Phone: [facility] 03-05-2023 12:35-0400 SaO2% (BldA) [Mass fraction] 98 % Fatuma Beckford PA-C Work Phone: [facility] 03-05-2023 12:35-0400 Systolic blood pressure 145 mm[Hg] Fatuma Beckford PA-C Work Phone: [facility] 03-05-2023 08:56-0400 Body height 170.2 cm Galina Camacho MD Work Phone: [facility] 03-05-2023 08:56-0400 Body weight 130.18 kg Galina Camacho MD Work Phone: [facility] 03-05-2023 08:56-0400 Diastolic blood pressure 82 mm[Hg] Galina Camacho MD Work Phone: [facility] 03-05-2023 08:56-0400 Systolic blood pressure 122 mm[Hg] Galina Camacho MD Work Phone: [facility] 02-28-2023 14:20-0400 Body weight 131.54 kg Ivette Grimes MD Work Phone: [facility] 02-28-2023 14:20-0400 Diastolic blood pressure 72 mm[Hg] Ivette Grimes MD Work Phone: [facility] 02-28-2023 14:20-0400 Heart rate 79 /min Ivette Grimes MD Work Phone: [facility] 02-28-2023 14:20-0400 SaO2% (BldA) [Mass fraction] 97 % Ivette Grimes MD Work Phone: [facility] 02-28-2023 14:20-0400 Systolic blood pressure 138 mm[Hg] Ivette Grimes MD Work Phone: [facility] 01-31-2023 09:21-0400 Body weight 130.18 kg Ivette Grimes MD Work Phone: [facility] 01-31-2023 09:21-0400 Diastolic blood pressure 82 mm[Hg] Ivette Grimes MD Work Phone: [facility] 01-31-2023 09:21-0400 Heart rate 65 /min Ivette Grimes MD Work Phone: [facility] 01-31-2023 09:21-0400 SaO2% (BldA) [Mass fraction] 98 % Ivette Grimes MD Work Phone: [facility] 01-31-2023 09:21-0400 Systolic blood pressure 120 mm[Hg] Ivette Grimes MD Work Phone: [facility] 01-24-2023 10:23-0400 Heart rate 64 /min Elle Sanchez MD Work Phone: [facility] 01-24-2023 10:23-0400 Respiratory rate 16 /min Elle Sanchez MD Work Phone: [facility] 01-24-2023 10:23-0400 SaO2% (BldA) [Mass fraction] 98 % Elle Sanchez MD Work Phone: [facility] 01-17-2023 11:21-0400 Body height 170.2 cm Ivette Grimes MD Work Phone: [facility] 01-17-2023 11:21-0400 Body weight 128.82 kg Ivette Grimes MD Work Phone: [facility] 01-17-2023 11:21-0400 Diastolic blood pressure 84 mm[Hg] Ivette Grimes MD Work Phone: [facility] 01-17-2023 11:21-0400 Heart rate 70 /min Ivette Grimes MD Work Phone: [facility] 01-17-2023 11:21-0400 SaO2% (BldA) [Mass fraction] 98 % Ivette Grimes MD Work Phone: [facility] 01-17-2023 11:21-0400 Systolic blood pressure 148 mm[Hg] Ivette Grimes MD Work Phone: [facility] 01-04-2023 11:30-0500 Body weight 128.37 kg Ivette Grimes MD Work Phone: [facility] 01-04-2023 11:30-0500 Diastolic blood pressure 78 mm[Hg] Ivette Grimes MD Work Phone: [facility] 01-04-2023 11:30-0500 Heart rate 85 /min Ivette Grimes MD Work Phone: [facility] 01-04-2023 11:30-0500 SaO2% (BldA) [Mass fraction] 97 % Ivette Grimes MD Work Phone: [facility] 01-04-2023 11:30-0500 Systolic blood pressure 132 mm[Hg] Ivette Grimes MD Work Phone: [facility] 12-28-2022 14:55-0500 Body height 170.[address] Ivette Grimes Work Phone: [facility] 12-28-2022 14:55-0500 Body mass index (BMI) [Ratio] 44.6 kg/m2 Dr. Ivette Grimes Work Phone: [facility] 12-28-2022 14:55-0500 Body weight 129.[address] Ivette Grimes Work Phone: [facility] 12-28-2022 14:55-0500 Diastolic blood pressure 79 mm[Hg] Dr. Ivette Grimes Work Phone: [facility] 12-28-2022 14:55-0500 Heart rate 71 /min Dr. Ivette Grimes Work Phone: [facility] 12-28-2022 14:55-0500 Respiratory rate 20 /min Dr. Ivette Grimes Work Phone: [facility] 12-28-2022 14:55-0500 Systolic blood pressure 130 mm[Hg] Dr. Ivette Grimes Work Phone: [facility] 12-26-2022 11:10-0500 Body height 170.2 cm Ivette Grimes MD Work Phone: [facility] 12-26-2022 11:10-0500 Body weight 128.37 kg Ivette Grimes MD Work Phone: [facility] 12-26-2022 11:10-0500 Diastolic blood pressure 74 mm[Hg] Ivette Grimes MD Work Phone: [facility] 12-26-2022 11:10-0500 Heart rate 83 /min Ivette Grimes MD Work Phone: [facility] 12-26-2022 11:10-0500 SaO2% (BldA) [Mass fraction] 97 % Ivette Grimes MD Work Phone: [facility] 12-26-2022 11:10-0500 Systolic blood pressure 140 mm[Hg] Ivette Grimes MD Work Phone: [facility] 12-14-2022 09:16-0500 Body height 170.2 cm Ivette Grimes MD Work Phone: [facility] 12-14-2022 09:16-0500 Body weight 125.65 kg Ivette Grimes MD Work Phone: [facility] 12-14-2022 09:16-0500 Diastolic blood pressure 98 mm[Hg] Ivette Grimes MD Work Phone: [facility] 12-14-2022 09:16-0500 Heart rate 75 /min Ivette Grimes MD Work Phone: [facility] 12-14-2022 09:16-0500 SaO2% (BldA) [Mass fraction] 98 % Ivette Grimes MD Work Phone: [facility] 12-14-2022 09:16-0500 Systolic blood pressure 160 mm[Hg] Ivette Grimes MD Work Phone: [facility] 12-07-2022 16:34-0500 Body temperature 98.8 [degF] Ivette Mejia Jr., MD Work Phone: [facility] 12-07-2022 16:34-0500 Body weight 126.01 kg Ivette Mejia Jr., MD Work Phone: [facility] 12-07-2022 16:34-0500 Diastolic blood pressure 94 mm[Hg] Ivette Mejia Jr., MD Work Phone: [facility] 12-07-2022 16:34-0500 Heart rate 72 /min Ivette Mejia Jr., MD Work Phone: [facility] 12-07-2022 16:34-0500 Respiratory rate 20 /min Ivette Mejia Jr., MD Work Phone: [facility] 12-07-2022 16:34-0500 SaO2% (BldA) [Mass fraction] 97 % Ivette Mejia Jr., MD Work Phone: [facility] 12-07-2022 16:34-0500 Systolic blood pressure 160 mm[Hg] Ivette Mejia Jr., MD Work Phone: [facility] 12-06-2022 08:07-0500 Body mass index (BMI) [Ratio] 43.4 kg/m2 Dr. Ivette Grimes Work Phone: [facility] 12-06-2022 08:07-0500 Body temperature 97.7 [degF] Dr. Ivette Grimes Work Phone: [facility] 12-06-2022 08:07-0500 Body weight 125.[address] Ivette Grimes Work Phone: [facility] 12-06-2022 08:07-0500 Diastolic blood pressure 79 mm[Hg] Dr. Ivette Grimes Work Phone: [facility] 12-06-2022 08:07-0500 Heart rate 70 /min Dr. Ivette Grimes Work Phone: [facility] 12-06-2022 08:07-0500 Respiratory rate 18 /min Dr. Ivette Grimes Work Phone: [facility] 12-06-2022 08:07-0500 SaO2% (BldA) [Mass fraction] 98 % Dr. Ivette Grimes Work Phone: [facility] 12-06-2022 08:07-0500 Systolic blood pressure 141 mm[Hg] Dr. Ivette Grimes Work Phone: 7(202)432-158268 [place] [address] 12-03-2022 20:26-0500 Heart rate 75 /min Dr. Ivette Grimes Work Phone: 6(259)224-875168 [place] [address] 12-03-2022 20:26-0500 Respiratory rate 18 /min Dr. Ivette Grimes Work Phone: 2(464)018-042168 [place] [address] 12-03-2022 20:26-0500 SaO2% (BldA) [Mass fraction] 96 % Dr. Ivette Grimes Work Phone: 2(780)810-998468 [place] [address] 12-03-2022 18:25-0500 Body mass index (BMI) [Ratio] 43.4 kg/m2 Dr. Ivette Grimes Work Phone: 9(992)506-882968 [place] [address] 12-03-2022 18:25-0500 Body temperature 97.8 [degF] Dr. Ivette Grimes Work Phone: 4(082)802-283768 [address] [place] [address] 12-03-2022 18:25-0500 Body weight 125.[address] Ivette Grimes Work Phone: 1(191)[phone] [place] [address] 12-03-2022 18:25-0500 Diastolic blood pressure 91 mm[Hg] Dr. Ivette Grimes Work Phone: 0(908)[phone] [place] [address] 12-03-2022 18:25-0500 Systolic blood pressure 176 mm[Hg] Dr. Ivette Grimes Work Phone: 3(191)[phone] [place] [address] 11-27-2022 14:36-0500 Body height 170.[address] Ivette Grimes Work Phone: 3(270)869-417868 [place] [address] 11-27-2022 14:36-0500 Body mass index (BMI) [Ratio] 42.7 kg/m2 Dr. Ivette Grimes Work Phone: 5(664)[phone] [place] [address] 11-27-2022 14:36-0500 Body temperature 98.1 [degF] Dr. Ivette Grimes Work Phone: 8(841)[phone] [place] [address] 11-27-2022 14:36-0500 Body weight 123.[address] Ivette Grimes Work Phone: [facility] 11-27-2022 14:36-0500 Diastolic blood pressure 81 mm[Hg] Dr. Ivette Grimes Work Phone: [facility] 11-27-2022 14:36-0500 Heart rate 70 /min Dr. Ivette Grimes Work Phone: [facility] 11-27-2022 14:36-0500 Respiratory rate 15 /min Dr. Ivette Grimes Work Phone: [facility] 11-27-2022 14:36-0500 SaO2% (BldA) [Mass fraction] 99 % Dr. Ivette Grimes Work Phone: [facility] 11-27-2022 14:36-0500 Systolic blood pressure 154 mm[Hg] Dr. Ivette Grimes Work Phone: [facility] 11-27-2022 13:51-0500 Body height 170.2 cm Ivette Grimes MD Work Phone: [facility] 11-27-2022 13:51-0500 Body weight 123.83 kg Ivette Grimes MD Work Phone: [facility] 11-27-2022 13:51-0500 Diastolic blood pressure 84 mm[Hg] Ivette Grimes MD Work Phone: [facility] 11-27-2022 13:51-0500 Heart rate 75 /min Ivette Grimes MD Work Phone: [facility] 11-27-2022 13:51-0500 SaO2% (BldA) [Mass fraction] 97 % Ivette Grimes MD Work Phone: [facility] 11-27-2022 13:51-0500 Systolic blood pressure 150 mm[Hg] Ivette Grimes MD Work Phone: [facility] 11-24-2022 15:07-0500 Heart rate 67 /min Dr. Ivette Grimes Work Phone: [facility] 11-24-2022 15:07-0500 SaO2% (BldA) [Mass fraction] 97 % Dr. Ivette Grimes Work Phone: [facility] 11-24-2022 13:43-0500 Diastolic blood pressure 64 mm[Hg] Dr. Ivette rGimes Work Phone: [facility] 11-24-2022 13:43-0500 Respiratory rate 16 /min Dr. Ivette Grimes Work Phone: [facility] 11-24-2022 13:43-0500 Systolic blood pressure 132 mm[Hg] Dr. Ivette Grimes Work Phone: [facility] 11-24-2022 11:44-0500 Body height 170.[address] Ivette Grimes Work Phone: [facility] 11-24-2022 11:44-0500 Body mass index (BMI) [Ratio] 47.2 kg/m2 Dr. Ivette Grimes Work Phone: [facility] 11-24-2022 11:44-0500 Body temperature 97.9 [degF] Dr. Ivette Grimes Work Phone: [facility] 11-24-2022 11:44-0500 Body weight [address] Ivette Grimes Work Phone: [facility] 11-08-2022 13:35-0500 Heart rate 70 /min Adelina Mason AIR CONDITIONING UNIT ASSEMBLER.STEP DOWN SPECIALIST Work Phone: [facility] 11-08-2022 13:35-0500 Respiratory rate 14 /min Adelina Mason AIR CONDITIONING UNIT ASSEMBLER.STEP DOWN SPECIALIST Work Phone: [facility] 11-08-2022 13:35-0500 SaO2% (BldA) [Mass fraction] 98 % Adelina Mason AIR CONDITIONING UNIT ASSEMBLERStephanySTEP DOWN SPECIALIST Work Phone: [facility] 09-04-2022 11:50-0400 Body height 170.2 cm Ivette Grimes MD Work Phone: [facility] 09-04-2022 11:50-0400 Body weight 123.11 kg Ivette Grimes MD Work Phone: [facility] 09-04-2022 11:50-0400 Diastolic blood pressure 80 mm[Hg] Ivette Grimes MD Work Phone: [facility] 09-04-2022 11:50-0400 Heart rate 74 /min Ivette Grimes MD Work Phone: [facility] 09-04-2022 11:50-0400 SaO2% (BldA) [Mass fraction] 98 % Ivette Grimes MD Work Phone: [facility] 09-04-2022 11:50-0400 Systolic blood pressure 160 mm[Hg] Ivette Grimes MD Work Phone: [facility] 08-16-2022 12:57-0400 Body height 170.[address] Ivette Grimes Work Phone: [facility] Work Phone: 08-16-2022 12:57-0400 Body mass index (BMI) [Ratio] 42.3 kg/m2 Dr. Ivette Grimes Work Phone: [facility] 08-16-2022 12:57-0400 Body weight 122.[address] Ivette Grimes Work Phone: [facility] 08-16-2022 12:57-0400 Diastolic blood pressure 78 mm[Hg] Dr. Ivette Grimes Work Phone: [facility] 08-16-2022 12:57-0400 Heart rate 73 /min Dr. Ivette Grimes Work Phone: [facility] 08-16-2022 12:57-0400 Respiratory rate 16 /min Dr. Ivette Grimes Work Phone: [facility] 08-16-2022 12:57-0400 Systolic blood pressure 117 mm[Hg] Dr. Ivette Grimes Work Phone: [facility] 08-07-2022 07:38-0400 Body height 170.[address] Ivette Grimes Work Phone: [facility] Work Phone: 08-07-2022 07:38-0400 Body mass index (BMI) [Ratio] 42.5 kg/m2 Dr. Ivette Grimes Work Phone: [facility] 08-07-2022 07:38-0400 Body temperature 99.1 [degF] Dr. Ivette Grimes Work Phone: [facility] 08-07-2022 07:38-0400 Body weight 123.[address] Ivette Grimes Work Phone: [facility] 08-07-2022 07:38-0400 Diastolic blood pressure 81 mm[Hg] Dr. Ivette Grimes Work Phone: [facility] 08-07-2022 07:38-0400 Heart rate 65 /min Dr. Ivette Grimes Work Phone: [facility] 08-07-2022 07:38-0400 Respiratory rate 16 /min Dr. Ivette Grimes Work Phone: [facility] 08-07-2022 07:38-0400 SaO2% (BldA) [Mass fraction] 97 % Dr. Ivette Grimes Work Phone: [facility] 08-07-2022 07:38-0400 Systolic blood pressure 130 mm[Hg] Dr. Ivette Grimes Work Phone: [facility] 08-02-2022 09:50-0400 Body weight 122.02 kg Ivette Grimes MD Work Phone: [facility] 08-02-2022 09:50-0400 Diastolic blood pressure 82 mm[Hg] Ivette Grimes MD Work Phone: [facility] 08-02-2022 09:50-0400 Heart rate 60 /min Ivette Grimes MD Work Phone: [facility] 08-02-2022 09:50-0400 Systolic blood pressure 126 mm[Hg] Ivette Grimes MD Work Phone: [facility] 07-19-2022 12:57-0400 Body height 170.2 cm Karen Diederich AIR CONDITIONING UNIT ASSEMBLER.STEP DOWN SPECIALIST Work Phone: [facility] 07-19-2022 12:57-0400 Body weight 122.92 kg Karen Bansal AIR CONDITIONING UNIT ASSEMBLER.STEP DOWN SPECIALIST Work Phone: [facility] 07-19-2022 12:57-0400 Diastolic blood pressure 57 mm[Hg] Karen Ocasioerich AIR CONDITIONING UNIT ASSEMBLER.STEP DOWN SPECIALIST Work Phone: [facility] 07-19-2022 12:57-0400 Heart rate 76 /min Karen Ocasioerich AIR CONDITIONING UNIT ASSEMBLER.STEP DOWN SPECIALIST Work Phone: [facility] 07-19-2022 12:57-0400 Systolic blood pressure 115 mm[Hg] Karen Ocasioerich AIR CONDITIONING UNIT ASSEMBLER.STEP DOWN SPECIALIST Work Phone: [facility] 06-07-2022 15:13-0400 Body temperature 97.81 [degF] Tara Dahlhausen AIR CONDITIONING UNIT ASSEMBLER.STEP DOWN SPECIALIST Work Phone: [facility] 06-07-2022 15:13-0400 Body weight 119.84 kg Tara Dacolettehausen AIR CONDITIONING UNIT ASSEMBLER.STEP DOWN SPECIALIST Work Phone: [facility] 06-07-2022 15:13-0400 Diastolic blood pressure 68 mm[Hg] Tara Dahlhausen AIR CONDITIONING UNIT ASSEMBLER.STEP DOWN SPECIALIST Work Phone: [facility] 06-07-2022 15:13-0400 Heart rate 80 /min Tara Dacolettehausen AIR CONDITIONING UNIT ASSEMBLER.STEP DOWN SPECIALIST Work Phone: [facility] 06-07-2022 15:13-0400 Respiratory rate 22 /min Tara Dahlhausen AIR CONDITIONING UNIT ASSEMBLER.STEP DOWN SPECIALIST Work Phone: [facility] 06-07-2022 15:13-0400 SaO2% (BldA) [Mass fraction] 98 % Tara Dahlhausen AIR CONDITIONING UNIT ASSEMBLER.STEP DOWN SPECIALIST Work Phone: [facility] 06-07-2022 15:13-0400 Systolic blood pressure 112 mm[Hg] Tara Dahlhausen AIR CONDITIONING UNIT ASSEMBLER.STEP DOWN SPECIALIST Work Phone: [facility] 06-04-2022 14:39-0400 Body height 170.[address] Ivette Grimes Work Phone: [facility] Work Phone: 05-24-2022 11:01-0400 Heart rate 78 /min Adelina Yves AIR CONDITIONING UNIT ASSEMBLER.STEP DOWN SPECIALIST Work Phone: [facility] 05-24-2022 11:01-0400 Respiratory rate 18 /min Adelina Yves AIR CONDITIONING UNIT ASSEMBLER.STEP DOWN SPECIALIST Work Phone: [facility] 05-24-2022 11:01-0400 SaO2% (BldA) [Mass fraction] 98 % Adelina Sorento AIR CONDITIONING UNIT ASSEMBLER.STEP DOWN SPECIALIST Work Phone: [facility] 05-10-2022 10:54-0400 Diastolic blood pressure 75 mm[Hg] Elle Sanchez MD Work Phone: [facility] 05-10-2022 10:54-0400 Heart rate 61 /min Elle Sanchez MD Work Phone: [facility] 05-10-2022 10:54-0400 Respiratory rate 20 /min Elle Sanchez MD Work Phone: [facility] 05-10-2022 10:54-0400 SaO2% (BldA) [Mass fraction] 98 % Elle Sanchez MD Work Phone: [facility] 05-10-2022 10:54-0400 Systolic blood pressure 130 mm[Hg] Elle Sanchez MD Work Phone: [facility] 05-01-2022 14:39-0400 Body weight 118.39 kg Ivette Grimes MD Work Phone: [facility] 05-01-2022 14:39-0400 Diastolic blood pressure 80 mm[Hg] Ivette Grimes MD Work Phone: [facility] 05-01-2022 14:39-0400 Heart rate 68 /min Ivette Grimes MD Work Phone: [facility] 05-01-2022 14:39-0400 Respiratory rate 18 /min Ivette Grimes MD Work Phone: [facility] 05-01-2022 14:39-0400 SaO2% (BldA) [Mass fraction] 98 % Ivette Grimes MD Work Phone: [facility] 05-01-2022 14:39-0400 Systolic blood pressure 132 mm[Hg] Ivette Grimes MD Work Phone: [facility] 04-09-2022 15:29-0400 Body temperature 97.5 [degF] Ivette Mejia Jr., MD Work Phone: [facility] 04-09-2022 15:29-0400 Body weight 122.2 kg Ivette Mejia Jr., MD Work Phone: [facility] 04-09-2022 15:29-0400 Diastolic blood pressure 72 mm[Hg] Ivette Mejia Jr., MD Work Phone: [facility] 04-09-2022 15:29-0400 Heart rate 74 /min Ivette Mejia Jr., MD Work Phone: [facility] 04-09-2022 15:29-0400 Respiratory rate 18 /min Ivette Mejia Jr., MD Work Phone: [facility] 04-09-2022 15:29-0400 SaO2% (BldA) [Mass fraction] 97 % Ivette Mejia Jr., MD Work Phone: [facility] 04-09-2022 15:29-0400 Systolic blood pressure 138 mm[Hg] Ivette Mejia Jr., MD Work Phone: [facility] 03-29-2022 10:58-0400 Heart rate 62 /min Elle Sanchez MD Work Phone: [facility] 03-29-2022 10:58-0400 Respiratory rate 15 /min Elle Sanchez MD Work Phone: [facility] 03-29-2022 10:58-0400 SaO2% (BldA) [Mass fraction] 98 % Elle Sanchez MD Work Phone: [facility] 02-28-2022 16:31-0400 Body weight 120.66 kg Ivette Grimes MD Work Phone: [facility] 02-28-2022 16:31-0400 Diastolic blood pressure 82 mm[Hg] Ivette Grimes MD Work Phone: [facility] 02-28-2022 16:31-0400 Heart rate 72 /min Ivette Grimes MD Work Phone: [facility] 02-28-2022 16:31-0400 Systolic blood pressure 142 mm[Hg] Ivette Grimes MD Work Phone: [facility] 11-21-2021 13:58-0500 Body height 170.[address] Ivette Grimes Work Phone: [facility] Work Phone: 09-09-2017 14:42-0500 BMI (Body Mass Index) 41.78 kg/m2 Amparo Hitchcock MD [facility] 09-09-2017 14:42-0500 Body Temperature 98.5 [degF] Amparo Hitchcock MD [facility] 09-09-2017 14:42-0500 Body Temperature 98.49 [degF] Amparo Hitchcock MD [facility] 09-09-2017 14:42-0500 BP Diastolic 78 mm[Hg] Amparo Hitchcock MD [facility] 09-09-2017 14:42-0500 BP Systolic 137 mm[Hg] Amparo Hitchcock MD [facility] 09-09-2017 14:42-0500 Height 172.72 cm Amparo Hitchcock MD [facility] 09-09-2017 14:42-0500 Pulse (Heart Rate) 67 /min Amparo Hitchcock MD [facility] 09-09-2017 14:42-0500 Respiratory Rate 16 /min Amparo Hitchcock MD [facility] 09-09-2017 14:42-0500 Weight 124.65 kg Amparo Hitchcock MD [facility] 07-22-2017 16:06-0400 BMI (Body Mass Index) 39.53 kg/m2 [facility] Work Phone: 07-22-2017 16:06-0400 Pulse (Heart Rate) 95 /min [facility] Work Phone: 07-22-2017 16:06-0400 Respiratory Rate 22 /min [facility] Work Phone: 07-22-2017 16:06-0400 [facility] Work Phone: 05-10-2017 14:47-0400 Body Temperature 97.7 [degF] [facility] Work Phone: 05-10-2017 14:47-0400 BP Diastolic 84 mm[Hg] [facility] Work Phone: 05-10-2017 14:47-0400 BP Systolic 132 mm[Hg] [facility] Work Phone: 05-10-2017 14:47-0400 Height 172.72 cm [facility] Work Phone: Encounters Encounter Date Encounter Type Care Provider Facility Start: 06-29-2025 Encounter for other preprocedural examination Brett Quiroga [facility] Start: 06-25-2025 End: 06-25-[address] Brett Quiroga MD -[facility] Work Phone: Start: 06-25-2025 End: 06-25-[address] Ivette Grimes MD Work Phone: -[facility] Start: 06-23-2025 Non-patient / Non-visit Dr. Brett hernandez MD -[facility] Start: 06-23-2025 End: 06-23-2025 Admission to same day surgery center Dr. Brett Quiroga MD [facility] Start: 06-23-2025 End: 06-23-[address] Ivette Grimes MD Work Phone: [facility] Start: 06-17-2025 End: 06-17-[address] Bibiana Rehman DC -[facility] Work Phone: Start: 06-17-2025 End: 06-17-[address] Ivette Grimes MD Work Phone: [facility] Start: 06-16-2025 End: 06-16-2025 Refill Ivette Grimes MD Work Phone: [facility] Comment on above: Refill Request Start: 06-10-2025 ambulatory Brett Quiroga [place]: 06-10-2025 Non-patient / Non-visit Dr. Carson SHEARER -[facility] Work Phone: Start: 06-09-2025 End: 06-18-2025 Telephone encounter Ivette Grimes MD Work Phone: [facility] Comment on above: Results Start: 06-09-2025 End: 06-09-[address] Ivette Grimes MD Work Phone: -Laboratory Start: 06-09-2025 End: 06-09-[address] Ivette Grimes MD -Laboratory Work Phone: Start: 06-09-2025 End: 06-09-2025 ambulatory Ivette Grimes Facility:[facility] Start: 06-07-2025 End: 06-07-2025 Patient encounter procedure Ivette Grimes MD Work Phone: [facility] Comment on above: Well adult exam [...] encounter status Ivette Grimes MD Work Phone: [facility] Start: 06-07-2025 End: 06-07-2025 ambulatory IVETTE PATINOO Facility:[facility] Start: 06-07-2025 Encounter for genera l adult medical examination without abnormal findings IVETTE James SYDNEY [facility] Start: 06-05-2025 Registered Referred HEALTH RISK ASSE SSMENT -Laboratory Work Phone: Start: 06-05-2025 ambulatory Health Risk Assessment Facility:[facility] Start: 06-01-2025 End: 06-01-[address] Bibiana Rehman DC -[facility] Work Phone: Start: 06-01-2025 End: 06-01-[address] Ivette Grimes MD Work Phone: [facility] Start: 05-11-2025 ambulatory Ivette Patinoo Facility:[facility] Start: 05-11-[address] Ivette barry MD -Physical Therapy Work Phone: Start: 05-06-2025 End: 05-06-[address] Brett Quiroga MD -[facility] Work Phone: Start: 05-06-2025 End: 05-06-[address] Ivette Grimes MD Work Phone: -[facility] Start: 05-05-[address] Ivette barry MD -Physical Therapy Work Phone: Start: 04-21-2025 End: 04-21-[address] Bibiana Rehman DC -[facility] Work Phone: Start: 04-21-2025 End: 04-21-[address] Ivette Grimes MD Work Phone: [facility] Work Phone: Start: 04-20-[address] Ivette barry MD -Physical Therapy Work Phone: Start: 04-17-2025 End: 04-17-[address] Ivette Grimes MD Work Phone: [facility] Work Phone: Start: 04-17-2025 End: 04-17-[address] Brett Quiroga MD -[facility] Work Phone: Start: 04-17-2025 End: 04-17-2025 ambulatory Brett Quiroga Facility:[facility] Start: 04-12-2025 End: 04-12-2025 ambulatory Ivette Grimes MD Work Phone: [facility] Comment on above: Muscle relaxer Start: 04-07-2025 End: 04-07-2025 Telephone encounter Ivette Grimes MD Work Phone: [facility] Comment on above: Rx Refills Start: 04-05-2025 End: 04-05-[address] Bibiana Rehman DC -[facility] Work Phone: Start: 04-05-2025 End: 04-05-[address] Ivette Grimes MD Work Phone: [facility] Work Phone: Start: 04-01-2025 End: 04-01-2025 Telephone encounter Amanda Arteaga PA-C Work Phone: Neurology Comment on above: Botox Approved Start: 03-22-2025 End: 03-22-[address] Brett Quiroga MD -[facility] Work Phone: Start: 03-22-2025 End: 03-22-[address] Ivette Grimes MD Work Phone: [facility] Work Phone: Start: 03-19-2025 End: 03-19-2025 Telephone encounter Amanda Arteaga PA-C Work Phone: Neurology Comment on above: Botox Referral Start: 03-11-2025 End: 03-11-[address] Ivette Grimes MD Work Phone: [facility] Work Phone: Start: 03-11-2025 End: 03-11-[address] Brett Quiroga MD -Radiology, [facility] Work Phone: Start: 03-11-2025 End: 03-11-2025 ambulatory Brett Quiroga Facility:[facility] Start: 03-09-2025 End: 03-09-[address] Bibiana Rehman DC -[facility] Work Phone: Start: 03-09-2025 End: 03-09-2025 ambulatory Bibiana Rehman [place] Start: 03-09-[address] Ivette barry MD -Physical Therapy Work Phone: Start: 03-09-2025 End: 03-09-2025 Telemedicine consultation with patient Amanda Krystle Arteaga PA-C Work Phone: Neurology Start: 03-09-2025 End: 03-09-2025 ambulatory Amanda Krystle Arteaga PA-C Work Phone: Neurology Comment on above: Intractable chronic migraine without aura and with status migrainosus (Primary Dx) Start: 03-04-2025 End: 03-04-2025 Telephone encounter Amanda Krystle Chandler PA-C Work Phone: Neurology Start: 03-02-2025 End: 03-02-2025 Telemedicine consultation with patient Ivette Grimes MD Work Phone: [facility] Start: 03-02-2025 End: 03-02-2025 ambulatory Ivette Grimes MD Work Phone: [facility] Comment on above: Intractable chronic migraine without aura and without status migrainosus (Primary Dx); Chronic left shoulder pain Start: 02-16-2025 ambulatory Jesenia Mercado NP Fac ility:[facility] Start: 02-04-2025 End: 02-04-[address] Bibiana Rehman DC -[facility] Work Phone: Start: 02-04-2025 End: 02-04-2025 ambulatory Bibiana Rehman Facility:[facility] Start: 01-28-2025 End: 01-28-2025 Chart abstracting Ivette Grimes MD Work Phone: [facility] Start: 01-28-2025 End: 03-30-2025 Follow-up encounter Ivette Grimes MD Work Phone: [facility] Start: 01-28-2025 End: 02-08-2025 Telephone encounter Ivette Grimes MD Work Phone: [facility] Comment on above: PA new dose of ozemp ic Results Start: 01-28-2025 End: 01-28-[address] Ivette Grimes MD Work Phone: [facility] Work Phone: Start: 01-28-2025 End: 01-28-[address] Ivette Grimes MD -Laboratory Work Phone: Start: 01-28-2025 End: 01-28-2025 ambulatory Ivette Bray Facility:[facility] Start: 01-22-2025 End: 01-22-2025 ambulatory IVETTE GRIMES Facility:[facility] Start: 01-22-2025 End: 01-22-2025 Patient encounter [...] encounter Ivette Grimes MD Work Phone: [facility] Comment on above: Orders Start: 12-11-2024 End: 12-11-2024 Patient encounter procedure Jenni Martínez MACHINE JOINT CUTTER-C -Radiology, [facility] Work Phone: Start: 12-11-2024 End: 12-11-2024 Office outpatient visit 25 minutes Jenni Tanya AIR CONDITIONING UNIT ASSEMBLER.STEP DOWN SPECIALIST Work Phone: [facility] [place] Comment on above: Sinobronchitis (Prim ziyad Dx); Hypokalemia Start: 12-11-2024 End: 12-11-2024 ambulatory JENNI MAHAN Facility:[facility] Start: 12-11-2024 End: 12-11-2024 ambulatory [facility] Facility:[facility] Start: 11-25-2024 End: 11-25-2024 Refill Ivette Grimes MD Work Phone: [facility] Comment on above: Refill Request Start: 11-23-2024 End: 11-23-2024 Refill Ivette Grimes MD Work Phone: [facility] Comment on above: Refill Request Start: 11-17-2024 End: 12-18-2024 ambulatory Ivette Griems MD Work Phone: [facility] Start: 11-11-2024 End: 11-11-2024 Emergency department patient visit Dr. Buddy Hall DO -Emergency Department Work Phone: Start: 10-26-2024 End: 10-26-2024 Refill Ivette Grimes MD Work Phone: Psychiatry Comment on above: Refill Request Start: 10-19-2024 End: 10-19-2024 ambulatory Ivette Grimes MD Work Phone: [facility] Comment on above: Flank pain (Primary Dx) Start: 10-19-2024 End: 10-19-2024 Telemedicine consultation with patient Ivette Grimes MD Work Phone: [facility] Start: 10-19-2024 End: 10-19-[address] Bibiana Rehman OR -[facility] Work Phone: Start: 10-19-2024 End: 10-19-2024 ambulatory Bibiana Rehman Facility:[facility] Start: 10-16-2024 End: 10-16-2024 Emergency department patient visit Dr. Sam Pearl MD -Emergency Department Work Phone: Start: 10-07-2024 ambulatory Bibiana Rehman Facility:[facility] Start: 09-24-2024 End: 09-24-2024 ambulatory Ivette Grimes MD Work Phone: [facility] Comment on above: Dysuria (Primary Dx) ; Type 2 diabetes mellitus with microalbuminuria, with long-term current use of insulin (HCC); Primary insomnia Start: 09-24-2024 End: 09-24-2024 Telemedicine consultation with patient Ivette Grimes MD Work Phone: [facility] Start: 09-09-2024 End: 09-09-2024 ambulatory Bibiana Rehman Facility:[facility] Start: 09-03-2024 End: 09-03-2024 ambulatory IVETTE GRIMES Facility:[facility] Start: 09-03-2024 End: 09-03-2024 Patient encounter procedure Fatuma Beckford PA-C Work Phone: Neurology Comment on above: Intractable chronic migraine without aura and without status migrainosus (Primary Dx) Start: 09-01-2024 End: 09-02-2024 Telephone encounter Fatuma IRENE-Mireya Work Phone: Neurology Comment on above: Appointment Patient Question Start: 08-25-2024 End: 08-25-2024 ambulatory Bibiana Rehman Facility:[facility] Start: 08-13-2024 End: 08-13-2024 ambulatory Bibiana Rehman Facility:[facility] Start: 08-11-2024 End: 08-11-2024 Telephone encounter [...] Start: 08-05-2024 End: 08-05-2024 ambulatory IVETTE GRIMES Facility:[facility] Start: 08-05-2024 End: 08-05-2024 Patient encounter [...] encounter status Ivette Grimes MD Work Phone: [facility] Start: 07-30-2024 End: 07-30-2024 ambulatory Bibiana Valadez [place] Start: 07-24-2024 End: 07-27-2024 Refill Ivette Grimes MD Work Phone: Psychiatry Comment on above: Refill Request Start: 07-22-2024 End: 07-22-2024 ambulatory Ivette Sydney Facility:[facility] Start: 07-21-2024 End: 07-21-2024 Telephone encounter Ivette Grimes MD Work Phone: Family [facility] [place] Comment on above: Orders Start: 07-16-2024 End: 07-16-2024 ambulatory Ivette Sydney [place] Start: 07-09-2024 End: 07-10-2024 Telephone encounter Ivette Grmies MD Work Phone: [facility] [place] Comment on above: Patient Question Start: 07-08-2024 End: 07-08-2024 Chart abstracting Ivette Grimes MD Work Phone: [facility] [place] Start: 07-08-2024 End: 07-08-2024 Telephone encounter Ivette Grimes MD Work Phone: [facility] [place] Comment on above: Results Start: 07-07-2024 End: 07-07-2024 Chart abstracting Ivette Grimes MD Work Phone: [facility] [place] Start: 07-03-2024 End: 07-03-2024 Patient encounter procedure Ivette Grimes MD Work Phone: [facility] [place] Comment on above: Bronchitis (Primary Dx); Type 2 diabetes mellitus with microalbuminuria, with long-term current use of insulin (HCC); Wheezing Start: 07-03-2024 End: 07-04-2024 ambulatory IVETTE GRIMES Facility:[facility] Start: 07-02-2024 End: 07-02-2024 ambulatory Ivette Grimes [place] Start: 06-27-2024 End: 06-29-2024 Refill Ivette Grimes MD Work Phone: [facility] [place] Comment on above: Refill Request Start: 06-11-2024 ambulatory Ivette Grimes MD Work Phone: [facility] [place] Comment on above: Good Afternoon Start: 06-05-2024 ambulatory Fatuma vásquez PA-C Work Phone: Neurology Comment on above: Botox Start: 06-05-2024 E-mail encounter fro m caregiver Fatuma Beckford PA-C Work Phone: Neurology Start: 06-04-2024 Telephone encounter Fatuma perales PA-C Work Phone: Neurology Comment on above: Insurance Authorizat ion ([employer]) Start: 06-03-2024 End: 06-03-2024 ambulatory Ivette Grimes MD Work Phone: [facility] [place] Comment on above: Left sided sciatica (Primary Dx); Screening for depression Start: 06-03-2024 End: 06-03-2024 Telemedicine consultation with patient Ivette Grimes MD Work Phone: [facility] [place] Start: 05-12-2024 Refill Ivette Grimes MD Work Phone: [facility] Comment on above: Refill Request Start: 05-01-2024 Telephone encounter Ivette Grimes MD Work Phone: [facility] Comment on above: medication not on cu rrent medication list Start: 04-20-2024 Refill Ivette Grimes MD Work Phone: [facility] [place] Comment on above: Refill Request Start: 04-19-2024 Refill [facility] Comment on above: Refill Request Start: 04-14-2024 Refill Grace Child u AIR CONDITIONING UNIT ASSEMBLER.STEP DOWN SPECIALIST Work Phone: Psychiatry Comment on above: Refill Request Insurance Authorizat ion ([employer] ) Start: 04-06-2024 Telephone encounter Fatuma perales PA-C Work Phone: Neurology Comment on above: Insurance Authorizat ion (Botox ) Start: 04-02-2024 End: 04-02-2024 Patient encounter procedure Fatuma Beckford PA-C Work Phone: Neurology Comment on above: Intractable chronic migraine without aura and without status migrainosus (Primary Dx) Start: 02-28-2024 Refill Stephanie Paz AIR CONDITIONING UNIT ASSEMBLER.STEP DOWN SPECIALIST Work Phone: [facility] Comment on above: Refill Request Start: 02-04-2024 End: 02-04-2024 Emergency department patient visit Dr. Ivette Grimes [facility] Work Phone: Start: 01-22-2024 Refill Ivette Grimes MD Work Phone: [facility] [place] Comment on above: Refill Request Start: 01-01-2024 Refill Grace Child u AIR CONDITIONING UNIT ASSEMBLER.STEP DOWN SPECIALIST Work Phone: Psychiatry Comment on above: Refill Request Start: 12-27-2023 Telephone encounter Fatuma perales PA-C Work Phone: Neurology Comment on above: Insurance Authorizat ion Start: 12-26-2023 End: 12-26-2023 Patient encounter procedure Fatuma Beckford PA-C Work Phone: Neurology Comment on above: Intractable chronic migraine without aura and without status migrainosus (Primary Dx) Start: 12-10-2023 End: 12-10-[address] Ivette Grimes Work Phone: [facility] Work Phone: Start: 12-09-2023 End: 12-09-2023 Patient encounter procedure Ivette Grimes MD Work Phone: [facility] Comment on above: Essential (primary) hypertension (Primary Dx); LETITIA (obstructive sleep apnea); Fatty liver; Vertigo; Anxiety Start: 12-09-2023 Telephone encounter Ivette Grimes MD Work Phone: [facility] Comment on above: Orders Start: 12-06-2023 End: 12-06-[address] Ivette Grimes Work Phone: [facility] Work Phone: Start: 12-06-2023 End: 12-06-[address] Ivette Grimes Work Phone: [facility]-Laboratory, OP Pavilion Start: 12-05-2023 ambulatory Ivette Grimes MD Work Phone: [facility] Comment on above: Labs Start: 10-27-2023 End: 10-27-2023 Emergency department patient visit Self Referred [facility]Emergency Department Work Phone: Start: 10-14-2023 Refill Ivette Grimes MD Work Phone: [facility] Comment on above: Refill Request Start: 09-23-2023 Refill Adriana Patel Work Phone: Psychiatry Comment on above: Refill Request Start: 09-12-2023 End: 09-12-2023 Patient encounter procedure Self Referred [facility] Work Phone: Start: 09-09-2023 Refill Ivette Grimes MD Work Phone: Family [facility] [place] Comment on above: Refill Request Start: 08-21-2023 E-mail encounter fro m caregiver [facility] Start: 08-21-2023 Patient encounter procedure [facility] Neurology Comment on above: Botox Appointment Start: 08-20-2023 Telephone encounter Ivette Grimes MD Work Phone: [facility] [place] Comment on above: Forms ([employer] preventat ashish care ) Start: 08-15-2023 End: 08-15-2023 Patient encounter procedure Self Referred [facility] Work Phone: Start: 08-07-2023 Non-patient / Non-visit Self Referre d [facility] Work Phone: Start: 08-06-2023 Non-patient / Non-visit Self Referre d [facility] Work Phone: Start: 08-06-2023 Non-patient / Non-visit Self Referre d [facility] Start: 08-05-2023 End: 08-07-2023 Evaluation and management of inpatient Dr. Ivette Grimes Work Phone: [facility]-Progressive Care Unit Work Phone: Start: 08-05-[address] Reji Grimes Work Phone: [facility] Work Phone: Start: 08-01-2023 End: 08-01-[address] Ivette Grimes Work Phone: [facility] Work Phone: Start: 08-01-2023 End: 08-01-2023 ambulatory Self Referred [facility] Work Phone: Start: 08-01-2023 End: 08-01-2023 Discharged Recurring Self Referred [facility]-Physical Therapy Work Phone: Start: 08-01-[address] Gerald Grimes Work Phone: [facility] Work Phone: Start: 07-18-2023 End: 07-18-[address] Ivette Grimes Work Phone: [facility] Work Phone: Start: 07-18-2023 End: 07-18-[address] Ivette Grimes Work Phone: [facility] Work Phone: Start: 07-18-2023 End: 07-18-[address] Ivette Grimes Work Phone: [facility] Therapy Work Phone: Start: 07-05-2023 Refill Ivette Grimes MD Work Phone: [facility] Comment on above: Refill Request Start: 06-20-2023 End: 06-20-[address] Ivette Grimes Work Phone: [facility] Work Phone: Start: 06-19-2023 End: 06-20-2023 Patient encounter procedure Umesh Delgado Work Phone: Podiatry Comment on above: Plantar fasciitis (P rimary Dx); Calcaneal spur of right foot Start: 06-08-2023 Refill Grace morales APRN.STEP DOWN SPECIALIST Work Phone: Psychiatry Comment on above: Refill Request Start: 06-07-2023 End: 06-07-2023 Patient encounter procedure Ivette Mejia MD Work Phone: Neurology Comment on above: Memory loss (Primary Dx); Attention and concentration deficit; Post concussion syndrome; Intractable migraine without aura and without status migrainosus; LETITIA (obstructive sleep apnea) Start: 06-06-2023 End: 06-06-[address] Ivette Grimes Work Phone: [facility] Work Phone: Start: 06-06-2023 End: 06-06-2023 Patient encounter procedure Ivette Grimes MD Work Phone: [facility] [place] Comment on above: Type 2 diabetes fred [...] End: 05-29-2023 Patient encounter procedure Isiah Funes APRN.CNP Work Phone: [place] [facility] Comment on above: Foot pain, right (Pr imary Dx) Start: 05-29-2023 Telephone encounter Nicole vaca PA-C Work Phone: Urgent Care Comment on above: Pt requesting Boot Start: 05-28-2023 End: 05-28-2023 Subsequent hospital visit by physician X[facility] Work Phone: Radiology Comment on above: Pain of right heel [ M79.671] Start: 05-20-2023 End: 05-20-2023 Emergency department patient visit Dr. Ivette Grimes Work Phone: [facility]Emergency Department Work Phone: Start: 05-17-2023 End: 05-17-2023 Patient encounter procedure Fatuma Beckford PA-C Work Phone: Neurology Comment on above: Intractable chronic migraine without aura and without status migrainosus (Primary Dx); Post concussive syndrome Start: 05-09-[address] Gerald Grimes Work Phone: [facility]Physical Therapy Work Phone: Start: 05-07-2023 Refill Ivette Grimes MD Work Phone: [facility] Comment on above: Refill Request Start: 04-30-2023 End: 04-30-[address] Ivette Grimes Work Phone: [facility] Work Phone: Start: 04-16-2023 End: 04-16-[address] Ivette Grimes Work Phone: [facility] Work Phone: Start: 04-04-2023 Refill Ivette Grimes MD Work Phone: [facility] Comment on above: Refill Request Start: 04-02-2023 End: 04-02-[address] Ivette Grimes Work Phone: [facility] Work Phone: Start: 04-02-2023 End: 04-02-[address] Ivette Grimes Work Phone: [facility] Work Phone: Start: 04-02-2023 End: 04-02-[address] Ivette Grimes Work Phone: [facility]-Pulmonary Services/Neurology Work Phone: Start: 03-20-2023 Telephone encounter Fatuma perales PA-C Work Phone: Neurology Comment on above: Medication Authoriza tion (Botox renewal ) Start: 03-19-2023 End: 03-19-[address] Ivette Grimes Work Phone: [facility] Work Phone: Start: 03-12-2023 ambulatory Fatuma vásquez PA-C Work Phone: Neurology Comment on above: EEG Start: 03-09-2023 ambulatory Karen lópez AIR CONDITIONING UNIT ASSEMBLER.STEP DOWN SPECIALIST Work Phone: Neurology Comment on above: Botox Start: 03-05-[address] Gerald Grimes Work Phone: [facility] Therapy Start: 03-05-2023 End: 03-05-2023 Patient encounter [...] procedure Dr. Ivette Grimes Work Phone: [facility]Laboratory, [facility] Start: 03-01-2023 Telephone encounter Ivette [...] encounter procedure Dr. Ivette Grimes Work Phone: [facility] Start: 02-28-2023 End: 02-28-2023 Subsequent hospital visit by physician [facility] [employer] [facility] (I-Stat/1.5t) Work Phone: Radiology Comment on above: Post concussion synd roberta [F07.81] Start: 02-27-2023 Telephone encounter Ivette Grimes MD Work Phone: Family [facility] Comment on above: Medication Request Start: 02-22-2023 Refill Ivette Grimes MD Work Phone: [facility] Comment on above: Refill Request Start: 02-15-2023 End: 02-15-2023 [facility] Grace Coronel APRN.CNP Work Phone: Psychiatry Comment on above: VAHE (generalized anx iety disorder) (Primary Dx); Recurrent major depressive disorder, in full remission (HCC) Start: 02-14-2023 End: 02-14-[address] Ivette Grimes Work Phone: [facility] Start: 02-14-[address] Gerald Grimes [facility] Start: 02-11-2023 Refill Ivette Grimes MD Work Phone: [facility] Comment on above: Refill Request Start: 02-09-2023 Telephone encounter Ivette Grimes MD Work Phone: [facility] Comment on above: Results Start: 02-08-2023 End: 02-08-[address] Ivette Grimes Work Phone: [facility] Work Phone: Start: 02-08-2023 End: 02-08-[address] Ivette Grimes Work Phone: [facility] [employer] Start: 01-31-2023 Telephone encounter Ivette Grimes MD Work Phone: [facility] Comment on above: Orders Start: 01-31-2023 End: 01-31-[address] Ivette Grimes Work Phone: [facility] Start: 01-31-2023 End: 01-31-2023 Patient encounter procedure Ivette Grimes MD Work Phone: [facility] Comment on above: Post concussive synd roberta (Primary Dx); Headache, unspecified headache type; Injury of neck, subsequent encounter Start: 01-24-2023 End: 01-24-2023 ambulatory ELLE SANCHEZ Facility:[facility] Start: 01-24-2023 End: 01-24-2023 Patient encounter procedure Elle Sanchez MD Work Phone: [facility] Comment on above: [...] 01-17-[address] Ivette Grimes Work Phone: [facility] Work Phone: Start: 01-17-2023 End: 01-17-[address] Ivette Grimes Work Phone: [facility] Therapy Start: 01-17-2023 End: 01-17-2023 Patient encounter procedure Ivette Grimes MD Work Phone: [facility] Comment on above: Post concussive synd roberta (Primary Dx); Headache, unspecified headache type; Injury of neck, subsequent encounter Start: 01-17-2023 End: 01-17-[address] Ivette Grimes Work Phone: [facility] Start: 01-09-2023 Refill Ivette Grimes [...] encounter procedure Dr. Ivette Grimes Work Phone: [facility] Start: 01-02-2023 End: 01-02-2023 ambulatory [facility] Facility:[facility] Start: 01-01-2023 Telephone encounter Ivette Grimes MD Work Phone: [facility] [place] Comment on above: Patient Update Start: 12-28-2022 End: 12-28-[address] Ivette Grimes Work Phone: [facility] Start: 12-26-2022 End: 12-26-2022 Patient [...] encounter procedure Dr. Ivette Grimes Work Phone: [facility] Start: 12-14-2022 End: 12-14-2022 Patient [...] encounter procedure Dr. Ivette Grimes Work Phone: [facility] Start: 12-06-2022 End: 12-06-[address] Ivette Grimes Work Phone: [facility] Start: 12-04-2022 Telephone encounter Ivette Grimes MD Work Phone: [facility] Comment on above: Hank requesting records Start: 12-03-2022 End: 12-03-2022 Emergency department patient visit Dr. Ivette Grimes [facility] Start: 12-03-2022 Telephone encounter Ivette Grimes MD Work Phone: [facility] Comment on above: Patient Update Start: 11-30-2022 End: 11-30-2022 ambulatory Ivette Grimes MD Work Phone: [facility] Comment on above: Headache, unspecifie d headache type (Primary Dx); Concussion with loss of consciousness, initial encounter Start: 11-30-2022 End: 11-30-2022 Telemedicine consultation with patient Ivette Grimes MD Work Phone: [facility] Start: 11-29-2022 Telephone encounter Elle Sanchez MD Work Phone: [facility] [place] Comment on above: Patient Question (Lo di appointment on 12/05/22) Start: 11-27-2022 End: 11-27-2022 Emergency department patient visit Dr. Ivette Grimes Work Phone[facility] Start: 11-27-2022 End: 11-27-[address] Ivette Grimes Work Phone: [facility] Comment on above: Worst headache of li fe (Primary Dx); Concussion with loss of consciousness, initial encounter Start: 11-27-[address] Gerald Grimes Work Phone: [facility] Start: 11-24-2022 End: 11-24-2022 Emergency department patient visit Dr. Ivette Grimes Work Phone[facility] Start: 11-23-2022 Refill Ivette Grimes MD Work Phone: [facility] Comment on above: Refill Request Start: 11-22-[address] Gerald Grimes Work Phone: [facility] Start: 11-22-2022 End: 11-22-[address] Ivette Grimes Work Phone: [facility] Start: 11-20-2022 Orders Only Elle Sanchez MD Work Phone: [facility] [place] Comment on above: Chronic left shoulde r pain (Primary Dx); Adhesive capsulitis of left shoulder Start: 11-15-2022 Refill Ivette Grimes MD Work Phone: [facility] Comment on above: Refill Request Start: 11-08-2022 End: 11-08-2022 ambulatory ADELINA MASON Facility:[facility] Start: 11-08-2022 Telephone encounter Elle Sanchez MD Work Phone: [facility] Comment on above: Injections Start: 11-08-2022 End: 11-08-2022 Patient encounter procedure Adelina Mason AIR CONDITIONING UNIT ASSEMBLER.STEP DOWN SPECIALIST Work Phone: [facility] Comment on above: Chronic left shoulde r pain (Primary Dx); Adhesive capsulitis of left shoulder; Neuropathic pain; Myofascial pain Start: 11-08-2022 End: 11-08-[address] Ivette Grimes Work Phone: [facility] Start: 10-23-2022 End: 10-23-[address] Ivette Grimes Work Phone: [facility] Start: 10-16-2022 End: 10-16-[address] Ivette Grimes Work Phone: [facility] Start: 10-16-[address] Gerald Grimes Work Phone: [facility] Therapy Start: 10-15-2022 End: 10-15-[address] Ivette Grimes Work Phone: [facility] Work Phone: Start: 10-15-2022 End: 10-15-[address] Ivette Grimes Work Phone: [facility] Lab Start: 10-12-2022 End: 10-12-2022 [facility] Grace Coronel AIR CONDITIONING UNIT ASSEMBLER.STEP DOWN SPECIALIST Work Phone: Psychiatry Comment on above: VAHE (generalized anx iety disorder) (Primary Dx); Major depressive disorder, recurrent episode, moderate (HCC) Start: 10-10-2022 ambulatory [facility] Comment on above: Botox Start: 10-10-2022 E-mail encounter escobar cedeno caregiver [facility] Provider [facility] Start: 10-06-2022 Refill Tara alcantar AIR CONDITIONING UNIT ASSEMBLER.STEP DOWN SPECIALIST Work Phone: Neurology Comment on above: Refill Request Start: 10-05-2022 Refill Ivette Grimes MD Work Phone: [facility] Comment on above: Refill Request Start: 10-02-2022 Telephone encounter Adelina lazaro AIR CONDITIONING UNIT ASSEMBLER.STEP DOWN SPECIALIST Work Phone: [facility] [place] Comment on above: Appointment; Patient Question Start: 10-02-2022 End: 10-02-[address] Ivette Grimes Work Phone: [facility] Start: 09-19-2022 Refill Ivette Grimes MD Work Phone: [facility] Comment on above: Refill Request Start: 09-13-2022 End: 09-13-[address] Ivette Grimes Work Phone: [facility] Start: 09-13-[address] Gerald Grimes [facility] Phone[facility] Start: 09-12-2022 ambulatory Ivette Grimes MD Work Phone: [facility] Start: 09-12-2022 Chart abstracting Rivka SwansonW Work Phone: Adult Psychology Comment on above: Behavioral Health So cial Work Start: 09-12-2022 Follow-up encounter Ivette Grimes MD Work Phone: [facility] Comment on above: Follow up (couldn t reply to other message) Start: 09-06-2022 End: 09-06-2022 Refill Ivette Grimes MD Work Phone: [facility] Comment on above: Refill Request Start: 09-06-2022 End: 09-06-[address] Ivette Grimes Work Phone: [facility]Laboratory, [facility] Start: 09-04-2022 ambulatory Ivette Grimes [...] Registered Recurring Dr. Gerald Grimes Work Phone: [facility] Start: 09-03-2022 End: 09-03-2022 ambulatory Ivette Grimes MD Work Phone: [facility] Comment on above: Malaise (Primary Dx) Start: 09-03-2022 End: 09-03-2022 Telemedicine consultation with patient Ivette Grimes MD Work Phone: [facility] Start: 09-03-2022 E-mail encounter fro m caregiver [facility] Start: 09-03-2022 Patient encounter procedure [facility] Neu[facility] Comment on above: Botox Appointment Start: 08-30-2022 Non-patient / Non-visit Dr. Regina Grimes Work Phone: [facility] Start: 08-30-2022 End: 08-30-[address] Ivette Grimes Work Phone: [facility] Work Phone: Start: 08-30-2022 End: 08-30-[address] Ivette Grimes Work Phone: [facility] Start: 08-29-2022 End: 08-29-[address] Ivette Grimes Work Phone: [facility] Work Phone: Start: 08-29-2022 End: 08-29-[address] Ivette Grimes Work Phone: [facility] Start: 08-27-2022 ambulatory Ivette Grimes MD Work Phone: [facility] Comment on above: Quick question Start: 08-21-2022 Telephone encounter Karen renee AIR CONDITIONING UNIT ASSEMBLER.STEP DOWN SPECIALIST Work Phone: Neurology Comment on above: Medication Authoriza tion (Botox Approved) Start: 08-21-2022 End: 08-21-[address] Ivette Grimes Work Phone: [facility] Start: 08-16-2022 End: 08-16-[address] Ivette Grimes Work Phone: [facility] Start: 08-16-[address] Gerald Grimes Work Phone: [facility] Start: 08-10-2022 End: 08-10-[address] Ivette Grimes Work Phone: [facility] Work Phone: Start: 08-10-2022 End: 08-10-[address] Ivette Grimes Work Phone: [facility] Start: 08-08-2022 Chart abstracting Ivette Martínez MD Work Phone: [facility] Start: 08-08-2022 Telephone encounter Adelina lazaro AIR CONDITIONING UNIT ASSEMBLER.STEP DOWN SPECIALIST Work Phone: [facility] [place] Comment on above: Patient Update Start: 08-08-2022 End: 08-08-[address] Ivette Grimes Work Phone: [facility] Work Phone: Start: 08-08-2022 End: 08-08-[address] Ivette Grimes Work Phone: [facility]Laboratory, OP Pavilion Start: 08-07-[address] Gerald Grimes Work Phone: [facility]Physical Therapy Start: 08-07-2022 End: 08-07-[address] Ivette Grimes Work Phone: [facility] Medicine [facility] Start: 08-06-2022 ambulatory Ivette Grimes MD Work Phone: [facility] Comment on above: Labs Start: 08-02-2022 ambulatory Karen lópez AIR CONDITIONING UNIT ASSEMBLER.STEP DOWN SPECIALIST Work Phone: Neurology Comment on above: Migraines Start: 08-02-2022 End: 08-02-[address] Ivette Grimes Work Phone: [facility] Start: 08-02-2022 End: 08-02-2022 Patient [...] Phone: [facility] Comment on above: Combo Welder Start: 08-01-2022 Telephone encounter Karen renee AIR CONDITIONING UNIT ASSEMBLER.STEP DOWN SPECIALIST Work Phone: Neurology Comment on above: Medication Authoriza tion (Botox referral) Start: 07-24-2022 End: 07-24-[address] Ivette Grimes Work Phone: [facility] Start: 07-24-2022 End: 07-24-[address] Ivette Grimes Work Phone: [facility] Work Phone: Start: 07-24-2022 End: 07-24-[address] [facility] Grimes [facility] Start: 07-23-2022 Refill Ivette Grimes MD Work Phone: [facility] Comment on above: Refill Request Start: 07-19-2022 Telephone encounter Elle Sanchez MD Work Phone: [facility] Comment on above: Patient Update (Inje ction questions ) Start: 07-19-2022 End: 07-19-2022 Patient encounter procedure Karen Bansal AIR CONDITIONING UNIT ASSEMBLER.STEP DOWN SPECIALIST Work Phone: Neurology Comment on above: Intractable chronic migraine without aura and without status migrainosus (Primary Dx); Mixed migraine and muscle contraction headache Start: 07-19-2022 End: 07-19-2022 ambulatory [facility] Facility:[facility] Start: 07-10-2022 Refill Krystle Barahona on PA-C Work Phone: [facility] Comment on above: Refill Request Start: 07-10-2022 End: 07-10-[address] Ivette Grimes Work Phone: [facility] Start: 07-03-2022 ambulatory Tara alcantar AIR CONDITIONING UNIT ASSEMBLER.STEP DOWN SPECIALIST Work Phone: Neurology Comment on above: Medication Question Start: 06-28-2022 End: 06-28-[address] Ivette Grimes Work Phone: [facility] Start: 06-22-2022 Refill Ivette Grimes MD Work Phone: [facility] Comment on above: Refill Request Start: 06-07-2022 End: 06-07-2022 Patient encounter procedure Tara Gillette APRN.STEP DOWN SPECIALIST Work Phone: Neurology Comment on above: Intractable migraine without aura and without status migrainosus (Primary Dx); Medication overuse headache; LETITIA (obstructive sleep apnea); Class 3 severe obesity with body mass index (BMI) of 45.0 to 49.9 in adult, unspecified obesity type, unspecified whether serious comorbidity present (HCC) Start: 06-07-2022 Telephone encounter Tara Herndon APRN.STEP DOWN SPECIALIST Work Phone: Neurology Comment on above: Orders Start: 06-05-2022 ambulatory Ivette guzman MD Work Phone: Neurology Comment on above: Labs Start: 06-05-2022 E-mail encounter fro m caregiver Ivette Grimes MD Work Phone: [facility] Start: 06-05-[address] Luz Grimes Work Phone: [facility] Start: 06-04-2022 End: 06-04-[address] Ivette Grimes Work Phone: [facility] Start: 05-29-2022 Telephone encounter Tara Herndon APRN.STEP DOWN SPECIALIST Work Phone: Neurology Comment on above: Appointment Start: 05-29-2022 End: 05-29-[address] Ivette Grimes Work Phone: [facility] Start: 05-24-2022 End: 05-24-2022 ambulatory ADELINA MASON Facility:[facility] Start: 05-24-2022 End: 05-24-2022 Patient encounter procedure Adelina Mason APRN.STEP DOWN SPECIALIST Work Phone: [facility] Comment on above: Chronic left shoulde r pain (Primary Dx); Adhesive capsulitis of left shoulder; Primary osteoarthritis of left shoulder; Myofascial pain Start: 05-14-2022 End: 05-14-[address] Ivette Grimes Work Phone: [facility] Start: 05-11-2022 Telephone encounter Elle Sanchez MD Work Phone: [facility] [place] Comment on above: Procedure Follow Up Start: 05-10-2022 End: 05-10-2022 ambulatory ELLE SNACHEZ Facility:[facility] Start: 05-10-2022 End: 05-10-2022 ambulatory Elle Sanchez MD Work Phone: [facility] [place] Comment on above: Procedure Start: 05-10-2022 End: 05-10-2022 Patient encounter procedure Elle Sanchez MD Work Phone: [facility] Start: 05-08-2022 ambulatory Ivette Grimes MD Work Phone: [facility] [place] Start: 05-08-2022 Follow-up encounter Ivette Grimes MD Work Phone: [facility] Comment on above: Follow up from last appointment Start: 05-04-2022 End: 05-04-[address] Ivette Grimes [facility] Start: 05-03-2022 Refill Ivette Grimes MD Work Phone: [facility] Comment on above: Refill Request [...] encounter procedure Dr. Ivette Grimes Work Phone: [facility] Start: 04-19-2022 ambulatory Ivette Grimes MD Work Phone: [facility] Comment on above: Lyrica Start: 04-17-2022 End: 04-17-[address] Ivette Grimes Work Phone: [facility] Start: 04-16-2022 Refill Ivette Grimes [...] 04-05-2022 Refill Ivette Grimes MD Work Phone: [facility] Comment on above: Refill Request Start: 04-03-2022 End: 04-03-[address] Ivette Grimes Work Phone: [facility] Start: 03-30-2022 Refill [facility] Comment on above: Refill Request Start: 03-29-2022 Telephone encounter Elle Sanchez MD Work Phone: [facility] Comment on above: Injections Start: 03-29-2022 End: 03-29-2022 ambulatory ELLE SANCHEZ Facility:[facility] Start: 03-29-2022 End: 03-29-2022 Patient encounter procedure Elle Sanchez MD Work Phone: [facility] Comment on above: Myofascial pain (Carolyn alyssa Dx); Chronic left shoulder pain; Neuropathic pain; Adhesive capsulitis of left shoulder; Primary osteoarthritis of left shoulder Start: 03-16-2022 Refill Ivette Grimes MD Work Phone: [facility] [place] Comment on above: Refill Request Start: 03-03-2022 Refill Krystle Barahona on PA-C Work Phone: [facility] [place] Comment on above: Refill Request Start: 02-28-2022 End: 02-28-2022 Patient encounter procedure Ivette Grimes MD Work Phone: [facility] [place] Comment on above: Upper back pain (Carolyn [...] Ivette Martínez MD Work Phone: [facility] [place] Start: 02-07-2022 ambulatory Ivette Grimes MD Work Phone: [facility] [place] Comment on above: Lab work Start: 02-07-2022 E-mail encounter fro m caregiver Ivette Grimes MD Work Phone: [facility] [place] Start: 02-07-2022 Telephone encounter Ivette Grimes MD Work Phone: [facility] [place] Comment on above: Results Start: 02-07-2022 End: 02-07-[address] Ivette Grimes Work Phone: [facility], Future Start: 02-06-[address] Gerald Grimes Work Phone: [facility] Start: 02-06-2022 End: 02-06-[address] Ivette Grimes Work Phone: [facility] Start: 02-05-2022 ambulatory Ivette Grimes MD Work Phone: [facility] [place] Comment on above: Lab work Start: 01-29-2022 Telephone encounter Elle Sanchez MD Work Phone: [facility] [place] Comment on above: New Patient Start: 01-23-2022 End: 01-23-[address] Ivette Grimes Work Phone: [facility] Start: 01-09-2022 End: 01-09-[address] Ivette Grimes Work Phone: [facility] Start: 01-09-2022 Non-patient / Non-visit Dr. Regina Grimes Work Phone: [facility] Start: 01-09-2022 End: 01-09-[address] Ivette Grimes Work Phone: [facility] Start: 01-01-2022 End: 01-01-[address] Ivette Grimes Work Phone: [facility] Start: 12-26-2021 End: 12-26-[address] Ivette Grimes Work Phone: [facility] Start: 11-29-2021 End: 11-29-[address] Ivette Grimes Work Phone: [facility] Start: 11-23-2021 End: 11-23-[address] Ivette Grimes Work Phone: [facility] Start: 11-21-2021 End: 11-21-[address] Ivette Grimes Work Phone: [facility] Start: 11-09-2021 End: 11-09-[address] Ivette Grimes Work Phone: [facility] Start: 10-24-2021 End: 10-24-[address] Ivette Grimes Work Phone: [facility] Start: 12-06-2012 End: 02-22-2014 Patient encounter status Stephanie Podlogar AIR CONDITIONING UNIT ASSEMBLER.STEP DOWN SPECIALIST Work Phone: [facility] Start: 01-23-2010 End: 02-22-2014 Patient encounter status Stephanie Podlogar AIR CONDITIONING UNIT ASSEMBLER.STEP DOWN SPECIALIST Work Phone: [facility] Procedures Date Procedure Procedure Detail Performing Clinician Start: 06-23-2025 Procedure on shoulder joint Dr. Ivette Grimes MD Work Phone: Start: 06-09-2025 Hemoglobin A1c/Hemoglobin.total in Blood [facility] Provider Start: 06-09-[address] (FOR REMOTE [facility] USE) [facility] Provider Start: 06-05-2025 Serum inorganic phos phate measurement Dr. Ivette Girmes MD Work Phone: Start: 06-05-2025 Urnls dip [...] Appl modality 1/> areas traction mechanical Bibiana Love Dossi DC Work Phone: Start: 08-08-2017 End: 08-08-2017 Chiropractic manipulative tx spinal 1-2 regions Bibiana Love Dossi DC Work Phone: Start: 08-06-2017 End: 08-06-2017 Appl modality 1/> areas elec stimj unattended Bibiana Love Dossi DC Work Phone: Start: 08-06-2017 End: 08-06-2017 Appl modality 1/> areas traction mechanical Bibiana Love Dossi DC Work Phone: Start: 08-06-2017 End: 08-06-2017 Chiropractic manipulative tx spinal 1-2 regions Bibiana Love Dossi DC Work Phone: Plan of Treatment Date Care Activity Detail Author Start: 06-07-2026 Annual PCP Team Chronic Disease Visit Annual PCP Team Chronic Disease Visit [facility] Start: 03-02-2026 Annual PCP Team Chronic Disease Visit Annual PCP Team Chronic Disease Visit [facility] Start: 02-04-2026 Glaucoma screening Dilated Retinal Exam [facility] Start: 01-22-2026 Annual PCP Team Chronic Disease Visit Annual PCP Team Chronic Disease Visit [facility] Start: 01-22-2026 BP Controlled (<130/80) BP Controlled (<130/80) [facility] Start: 01-22-2026 Depression Screening Depression Screening [facility] Start: 12-11-2025 Annual PCP Team Chronic Disease Visit Annual PCP Team Chronic Disease Visit [facility] Start: 12-10-2025 [facility]c [facility] Start: 10-19-2025 Annual PCP Team Chronic Disease Visit Annual PCP Team Chronic Disease Visit [facility] Start: 09-24-2025 Annual PCP Team Chronic Disease Visit Annual PCP Team Chronic Disease Visit [facility] Start: 08-05-2025 Annual PCP Team Chronic Disease Visit Annual PCP Team Chronic Disease Visit [facility] Start: 08-05-2025 BP Controlled (<130/80) BP Controlled (<130/80) [facility] Start: 08-05-2025 Covid-19 Vaccine ( season) Covid-19 Vaccine ( season) [facility] Comment on above: Postponed from 07/05/2024 (Declined at t his time) Start: 08-05-2025 Diabetic foot examination Diabetic Foot Exam [facility] Start: 08-05-2025 Pneumococcal vaccination Pneumococcal Vaccine (2 of 2 - PCV) [facility] Comment on above: Postponed from 07/28/2020 (Declined at t his time) Start: 08-05-2025 Urine microalbumin profile DTaP,Tdap,Td Vaccine (2 - Td or Tdap) [facility] Comment on above: Postponed from 06/01/2023 (Declined at t his time) Start: 08-04-2025 End: 08-04-2025 Patient encounter procedure 08/04/2025 4:30 PM EDT Office Visit Neurology [address] [place], [place] [id number] Fatuma Beckford PA-C [address] [place], [place] [phone] botox Neurology Comment on above: botox Start: 08-03-2025 End: 08-03-2025 Patient encounter procedure 08/03/2025 2:20 PM EDT Office Visit OB/Gynecology [address] [place], [place] [phone] Galina Camacho MD [address] [place], [place] [phone] annual with pap OB/Gynecology Comment on above: annual with pap Start: 07-31-2025 Hemoglobin A1c measurement HbA1C [facility] Start: 07-08-2025 End: 10-07-2025 Microalbumin/Creatinine [Mass Ratio] in Urine ALBUMIN/CREATININE RATIO, URINE Lab Routine Type 2 diabetes mellitus with microalbuminuria, with long-term current use of insulin (HCC) Expected: 07/08/2025, Expires: 10/07/2025 [facility] Comment on above: Expected: 07/08/2025, Expires: Start: 07-05-2025 Influenza vaccination [facility] Start: 07-05-2025 End: 10-04-2025 Urinalysis complete panel - Urine URINALYSIS, WITH MICROSCOPIC Lab Routine Flank pain Proteinuria, unspecified type Expected: 07/05/2025, Expires: 10/04/2025 [facility] Comment on above: Expected: 07/05/2025, Expires: Start: 07-04-2025 Hepatitis B screening Urine Albumin:Creatinine Ratio [facility] Start: 07-04-2025 Hepatitis B surface antibody level LDL Cholesterol [facility] Start: 07-03-2025 Annual PCP Team Chronic Disease Visit Annual PCP Team Chronic Disease Visit [facility] Start: 06-23-2025 Patient discharge [facility] Start: 06-23-2025 Application of ice collar, cap or bag [facility] Start: 06-23-2025 Assessment of risk of venous thromboembolism [facility] Start: 06-23-2025 Catheterization of vein [facility] Start: 06-23-2025 Continuous positive airway pressure ventilation treatment [facility] Start: 06-23-2025 Following clinical pathway protocol [facility] Start: 06-23-2025 Incentive spirometry [facility] Start: 06-23-2025 Introduction of urinary catheter [facility] Start: 06-23-2025 Vital signs measurements [facility] Start: 06-23-2025 [facility] Start: 06-07-2025 End: 09-06-2025 Cholesterol in LDL [Mass/volume] in Serum or Plasma LDL CHOLESTEROL DIR Lab Routine Type 2 diabetes mellitus with microalbuminuria, with long-term current use of insulin (HCC) Essential (primary) hypertension Expected: 06/07/2025, Expires: 09/06/2025 [facility] Comment on above: Expected: 06/07/2025, Expires: Start: 06-07-2025 End: 09-06-2025 Hemoglobin A1c in Blood HEMOGLOBIN A1C Lab Routine Type 2 diabetes mellitus with microalbuminuria, with long-term current use of insulin (HCC) Expected: 06/07/2025, Expires: 09/06/2025 [facility] Work Phone: Comment on above: Expected: 06/07/2025, Expires: Start: 06-03-2025 Annual PCP Team Chronic Disease Visit Annual PCP Team Chronic Disease Visit [facility] Start: 05-03-2025 Influenza vaccination Influenza Vaccine (#1) [facility] Comment on above: Postponed from 07/05/2024 (Declined at t his time) Start: 04-21-2025 End: 04-21-2025 Patient encounter procedure 04/21/2025 2:00 PM EDT Office Visit Neurology [address] [place] [address] Kristen Enriquez APRN.STEP DOWN SPECIALIST [address] [place] [address] botox Neurology Comment on above: botox Start: 03-09-2025 End: 03-09-2025 Patient encounter procedure 03/09/2025 7:25 AM EDT [facility] Neurology [address] [facility] [address] [place] [id number] Amanda Arteaga PA-C [address] [facility] [address] [place], [place] [phone] consult botox injection for headache Neurology Comment on above: consult botox injection for headache Start: 01-22-2025 End: 04-23-2025 Basic metabolic 2000 panel - Serum or Plasma BASIC METABOLIC PANEL Lab Routine Essential (primary) hypertension Expected: 01/22/2025, Expires: 04/23/2025 [facility] Comment on above: Expected: 01/22/2025, Expires: Start: 01-22-2025 End: 04-23-2025 Hemoglobin A1c in Blood HEMOGLOBIN A1C Lab Routine Type 2 diabetes mellitus with microalbuminuria, with long-term current use of insulin (HCC) Expected: 01/22/2025, Expires: 04/23/2025 [facility] Work Phone: Comment on above: Expected: 01/22/2025, Expires: Start: 01-01-2025 Hemoglobin A1c measurement HbA1C [facility] Start: 12-26-2024 BP Controlled (<130/80) BP Controlled (<130/80) [facility] Start: 12-25-2024 End: 12-25-2024 Patient encounter procedure 12/25/2024 10:15 AM EST Office Visit OB/Gynecology [address] [place], [place] [phone] Karol Mancera APRN.STEP DOWN SPECIALIST [address] [place], [place] [phone] annual OB/Gynecology Comment on above: annual Start: 12-17-2024 End: 12-17-2024 ambulatory 12/17/2024 9:40 AM EST Counts include 234 beds at the [facility] [address] [place] [address] Ivette Grimes MD [address] [place] [phone] [facility] Comment on above: General Start: 12-11-2024 End: 03-12-2025 Comprehensive metabolic 2000 panel - Serum or Plasma COMPREHENSIVE METABOLIC PANEL Lab Routine Hypokalemia Expected: 12/11/2024, Expires: 03/12/2025 [facility] Comment on above: Expected: 12/11/2024, Expires: Start: 12-09-2024 End: 12-09-2024 Patient encounter procedure 12/09/2024 2:20 PM EST Office Visit OB/Gynecology [address] [place] [address] Galina Camacho MD [address] [place], [place] [phone] Check up OB/Gynecology Comment on above: Check up Start: 12-09-2024 Annual PCP Team Chronic Disease Visit Annual PCP Team Chronic Disease Visit [facility] Start: 12-09-2024 BP Controlled (<130/80) BP Controlled (<130/80) [facility] Start: 12-09-2024 Covid-19 Vaccine (4 - 2023-24 season) Covid-19 Vaccine () [facility] Comment on above: Postponed from 07/05/2023 (Declined at t his time) Start: 12-09-2024 Depression Screening Depression Screening [facility] Start: 11-11-2024 [facility] Start: 11-06-2024 Annual PCP Team Chronic Disease Visit Annual PCP Team Chronic Disease Visit [facility] Start: 10-20-2024 End: 10-20-2024 Patient encounter procedure 10/20/2024 2:20 PM EST Office Visit OB/Gynecology [address] [place], [place] [phone] Galina Camacho MD [address] [place], [place] [phone] Check up OB/Gynecology Comment on above: Check up Start: 09-13-2024 BP Controlled (<130/80) BP Controlled (<130/80) [facility] Start: 09-12-2024 Glaucoma screening Dilated Retinal Exam [facility] Start: 09-10-2024 End: 09-10-2024 Patient encounter procedure Neurology Comment on above: botox Start: 09-03-2024 End: 09-03-2024 Patient encounter procedure 09/03/2024 1:00 PM EDT Office Visit Neurology [address] [place] [phone] Fatuma Beckford PA-C [address] [place], [place] [phone] botox Neurology Comment on above: botox Start: 08-05-2024 Depression Screening Depression Screening [facility] Comment on above: Postponed from 2000 (Declined at t his time) Start: 08-05-2024 End: 08-05-2024 Patient encounter procedure 08/05/2024 8:00 AM EDT Office Visit [facility] [place] [address] [place], [place] [phone] Ivette Grimes MD [address] [place], [place] [phone] [facility] [place] Comment on above: [facility] Start: 07-15-2024 Annual PCP Team Chronic Disease Visit Annual PCP Team Chronic Disease Visit [facility] Start: 07-05-2024 Covid-19 Vaccine ( season) Covid-19 Vaccine () [facility] Start: 07-05-2024 Covid-19 Vaccine () Covid-19 Vaccine () [facility] Start: 07-05-2024 Influenza vaccination Influenza Vaccine (#1) [facility] Start: 07-03-2024 End: 10-02-2024 CBC W Auto Differential panel - Blood COMPLETE BLOOD COUNT AND DIFFERENTIAL Lab Routine Type 2 diabetes mellitus with microalbuminuria, with long-term current use of insulin (HCC) Expected: 07/03/2024, Expires: 10/02/2024 [facility] Work Phone: Comment on above: Expected: 07/03/2024, Expires: Start: 07-03-2024 End: 10-02-2024 Comprehensive metabolic 2000 panel - Serum or Plasma COMPREHENSIVE METABOLIC PANEL Lab Routine Type 2 diabetes mellitus with microalbuminuria, with long-term current use of insulin (HCC) Expected: 07/03/2024, Expires: 10/02/2024 [facility] Comment on above: Expected: 07/03/2024, Expires: Start: 07-03-2024 End: 10-02-2024 Hemoglobin A1c in Blood HEMOGLOBIN A1C Lab Routine Type 2 diabetes mellitus with microalbuminuria, with long-term current use of insulin (HCC) Expected: 07/03/2024, Expires: 10/02/2024 [facility] Comment on above: Expected: 07/03/2024, Expires: Start: 07-03-2024 End: 10-02-2024 Lipid 1996 panel - Serum or Plasma LIPID PANEL BASIC Lab Routine Type 2 diabetes mellitus with microalbuminuria, with long-term current use of insulin (HCC) Expected: 07/03/2024, Expires: 10/02/2024 [facility] Comment on above: Expected: 07/03/2024, Expires: 4 Start: 07-03-2024 End: 10-02-2024 Microalbumin/Creatinine [Mass Ratio] in Urine ALBUMIN/CREATININE RATIO, URINE Lab Routine Type 2 diabetes mellitus with microalbuminuria, with long-term current use of insulin (HCC) Expected: 07/03/2024, Expires: 10/02/2024 [facility] Comment on above: Expected: 07/03/2024, Expires: Start: 06-06-2024 ANNUAL PCP TEAM CHRONIC DISEASE VISIT ANNUAL PCP TEAM CHRONIC DISEASE VISIT [facility] Start: 06-06-2024 COVID-19 VACCINE (4 - Moderna series) COVID-19 VACCINE (4 - Moderna series) [facility] Comment on above: Postponed from 12/13/2021 (Declined at t his time) Start: 06-06-2024 Diabetic foot examination Diabetic Foot Exam [facility] Start: 06-06-2024 [facility]rine [facility]in [facility] Comment on above: Postponed from 06/01/2023 (Declined at t his time) Start: 06-05-2024 Hemoglobin A1c measurement [facility]C [facility] Start: 05-17-2024 BP CONTROLLED (<130/80) BP CONTROLLED (<130/80) [facility] Start: 03-26-2024 End: 03-26-2024 Patient encounter procedure 03/26/2024 10:30 AM EDT Office Visit Neurology [address] [address] Fatuma Beckford PA-C [address] [place] [address] botox 4 of 4 Neurology Comment on above: botox 4 of 4 Start: 03-05-2024 BP CONTROLLED (<130/80) BP CONTROLLED (<130/80) [facility] in Start: 03-05-2024 PNEUMOCOCCAL (2 - PCV) PNEUMOCOCCAL (2 - PCV) [facility] Comment on above: Postponed from 07/28/2020 (Declined at t his time) Start: 03-05-2024 [facility] Comment on above: Postponed from 07/28/2020 (Declined at t his time) Start: 03-04-2024 Hepatitis B screening URINE ALBUMIN:CREATININE RATIO [facility] Start: 02-29-2024 ANNUAL PCP TEAM CHRONIC DISEASE VISIT ANNUAL PCP TEAM CHRONIC DISEASE VISIT [facility] Start: 02-04-2024 Bacteria identified in Urine by Culture [facility] Start: 02-04-2024 [facility] Start: 02-04-2024 [facility] Start: 02-01-2024 ANNUAL PCP TEAM CHRONIC DISEASE VISIT ANNUAL PCP TEAM CHRONIC DISEASE VISIT [facility] Start: 01-18-2024 ANNUAL PCP TEAM CHRONIC DISEASE VISIT ANNUAL PCP TEAM CHRONIC DISEASE VISIT [facility] Start: 01-05-2024 ANNUAL PCP TEAM CHRONIC DISEASE VISIT ANNUAL PCP TEAM CHRONIC DISEASE VISIT [facility] Start: 12-26-2023 ANNUAL PCP TEAM CHRONIC DISEASE VISIT ANNUAL PCP TEAM CHRONIC DISEASE VISIT [facility] Start: 12-18-2023 HPV TESTING HPV TESTING [facility] Start: 12-18-2023 PAP TESTING PAP TESTING [facility] Start: 12-18-2023 Screening for malignant neoplasm of cervix [facility] Start: 12-14-2023 ANNUAL PCP TEAM CHRONIC DISEASE VISIT ANNUAL PCP TEAM CHRONIC DISEASE VISIT [facility] Start: 12-07-2023 ANNUAL PCP TEAM CHRONIC DISEASE VISIT ANNUAL PCP TEAM CHRONIC DISEASE VISIT [facility] Start: 12-07-2023 End: 02-06-2024 CBC W Auto Differential panel - Blood CBC + DIFF Lab Routine Type 2 diabetes mellitus with microalbuminuria, with long-term current use of insulin (HCC) Expected: 12/07/2023, Expires: 02/06/2024 [facility] Work Phone: Comment on above: Expected: 12/07/2023, Expires: Start: 12-07-2023 End: 02-06-2024 Comprehensive metabolic 2000 panel - Serum or Plasma COMP METABOLIC PANEL Lab Routine Type 2 diabetes mellitus with microalbuminuria, with long-term current use of insulin (HCC) Expected: 12/07/2023, Expires: 02/06/2024 [facility] Work Phone: Comment on above: Expected: 12/07/2023, Expires: Start: 12-07-2023 End: 02-06-2024 Hemoglobin A1c in Blood HGB A1C Lab Routine Type 2 diabetes mellitus with microalbuminuria, with long-term current use of insulin (HCC) Expected: 12/07/2023, Expires: 02/06/2024 [facility] Work Phone: Comment on above: Expected: 12/07/2023, Expires: 4 Start: 12-07-2023 End: 02-06-2024 Lipid 1996 panel - Serum or Plasma LIPID PANEL BASIC Lab Routine Type 2 diabetes mellitus with microalbuminuria, with long-term current use of insulin (HCC) Expected: 12/07/2023, Expires: 02/06/2024 [facility] Work Phone: Comment on above: Expected: 12/07/2023, Expires: Start: 11-30-2023 ANNUAL PCP TEAM CHRONIC DISEASE VISIT ANNUAL PCP TEAM CHRONIC DISEASE VISIT [facility] Start: 11-27-2023 ANNUAL PCP TEAM CHRONIC DISEASE VISIT ANNUAL PCP TEAM CHRONIC DISEASE VISIT [facility] Start: 11-04-2023 Behavioral Health Screening Behavioral Health Screening [facility] Start: 11-04-2023 Depression Assessment Depression Assessment [facility] Start: 10-31-2023 BP CONTROLLED (<130/80) BP CONTROLLED (<130/80) [facility] in Start: 10-27-2023 [facility] Start: 09-04-2023 ANNUAL PCP TEAM CHRONIC DISEASE VISIT ANNUAL PCP TEAM CHRONIC DISEASE VISIT [facility] Start: 09-04-2023 Hemoglobin A1c measurement HbA1C [facility] Start: 09-04-2023 Hemoglobin A1c/Hemoglobin.total in Blood HBA1C [facility] Start: 09-03-2023 ANNUAL PCP TEAM CHRONIC DISEASE VISIT ANNUAL PCP TEAM CHRONIC DISEASE VISIT [facility] Start: 08-10-2023 Mammography [facility] Start: 08-10-2023 Screening for malignant neoplasm of breast Mammogram Screening [facility] Start: 08-08-2023 Hepatitis B surface antibody level LDL CHOLESTEROL [facility] Start: 08-07-2023 Patient discharge [facility] Start: 08-06-2023 Telepractice consultation [facility] Start: 08-05-2023 End: 08-05-2023 [facility] Start: 08-05-2023 Following clinical pathway protocol [facility] Start: 08-05-2023 Assessment of risk of venous thromboembolism [facility] Start: 08-05-2023 Cardiac monitoring [facility] Start: 08-05-2023 Catheterization of vein [facility] Start: 08-05-2023 Continuous pulse oximetry [facility] Start: 08-05-2023 Elevation of head of bed [facility] Start: 08-05-2023 Exercises [facility] Start: 08-05-2023 Implementation of planned interventions [facility] Start: 08-05-2023 Insertion of catheter into peripheral vein [facility] Start: 08-05-2023 Measuring intake and output [facility] Start: 08-05-2023 Notification of physician [facility] Start: 08-05-2023 Oxygen therapy [facility] Start: 08-05-2023 Providing care according to standard [facility] Start: 08-05-2023 Referral to occupational therapist [facility] Start: 08-05-2023 Referral to service [facility] Start: 08-05-2023 Tobacco use cessation education [facility] Start: 08-05-2023 Vital signs measurements [facility] Start: 08-05-2023 Verification routine [facility] Start: 08-05-2023 Admission procedure [facility] Start: 08-05-2023 Oxygen therapy [facility] Start: 08-05-2023 [facility] Start: 08-05-2023 Inhalation therapy procedure [facility] Start: 08-05-2023 Patient referral to dietitian [facility] Start: 08-02-2023 3 comp foot exam completed DIABETIC FOOT EXAM [facility] Start: 08-02-2023 ANNUAL PCP TEAM CHRONIC DISEASE VISIT ANNUAL PCP TEAM CHRONIC DISEASE VISIT [facility] Start: 08-02-2023 Diabetic foot examination Diabetic Foot Exam [facility] Start: 07-05-2023 Covid-19 Vaccine ( season) Covid-19 Vaccine () [facility] Start: 07-05-2023 Influenza vaccination [facility] Start: 06-07-2023 End: 08-07-2023 Cobalamin (Vitamin B12) [Mass/volume] in Serum or Plasma VITAMIN B12 BLOOD Lab Routine Memory loss Attention and concentration deficit Expected: 06/07/2023, Expires: 08/07/2023 [facility] Work Phone: Comment on above: Expected: 06/07/2023, Expires: Start: 06-07-2023 End: 08-07-2023 Thyrotropin [Units/volume] in Serum or Plasma TSH BLD Lab Routine Memory loss Attention and concentration deficit Expected: 06/07/2023, Expires: 08/07/2023 [facility] Work Phone: Comment on above: Expected: 06/07/2023, Expires: Start: 06-07-2023 End: 08-07-2023 Thyroxine (T4) free [Mass/volume] in Serum or Plasma T4 FREE/FREE THYROX Lab Routine Memory loss Attention and concentration deficit Expected: 06/07/2023, Expires: 08/07/2023 [facility] Work Phone: Comment on above: Expected: 06/07/2023, Expires: 3 Start: 06-01-2023 Urine microalbumin profile [facility] Start: 05-01-2023 ANNUAL PCP TEAM CHRONIC DISEASE VISIT ANNUAL PCP TEAM CHRONIC DISEASE VISIT [facility] Start: 04-02-2023 [facility] Start: 03-29-2023 Adult depression screening assessment DEPRESSION SCREENING [facility] Start: 02-28-2023 End: 04-30-2023 ALBUMIN/CREAT RATIO RND UR ALBUMIN/CREAT RATIO RND UR Lab Routine Type 2 diabetes mellitus with microalbuminuria, with long-term current use of insulin (HCC) Expected: 02/28/2023, Expires: 04/30/2023 [facility] Work Phone: Comment on above: Expected: 02/28/2023, Expires: Start: 02-28-2023 ANNUAL PCP TEAM CHRONIC DISEASE VISIT ANNUAL PCP TEAM CHRONIC DISEASE VISIT [facility] Start: 02-28-2023 End: 04-30-2023 Basic metabolic 2000 panel - Serum or Plasma BASIC METABOLIC PNL Lab Routine Myalgia Expected: 02/28/2023, Expires: 04/30/2023 [facility] Work Phone: Comment on above: Expected: 02/28/2023, Expires: 3 Start: 02-28-2023 End: 04-30-2023 CBC W Auto Differential panel - Blood CBC + DIFF Lab Routine Myalgia Expected: 02/28/2023, Expires: 04/30/2023 [facility] Work Phone: Comment on above: Expected: 02/28/2023, Expires: 3 Start: 02-28-2023 End: 04-30-2023 Hemoglobin A1c in Blood HGB A1C Lab Routine Type 2 diabetes mellitus with microalbuminuria, with long-term current use of insulin (HCC) Expected: 02/28/2023, Expires: 04/30/2023 [facility] Work Phone: Comment on above: Expected: 02/28/2023, Expires: 3 Start: 02-28-2023 End: 04-30-2023 Iron and Iron binding capacity panel - Serum or Plasma IRON + TIBC Lab Routine Myalgia Expected: 02/28/2023, Expires: 04/30/2023 [facility] Work Phone: Comment on above: Expected: 02/28/2023, Expires: 3 Start: 02-28-2023 End: 04-30-2023 Magnesium [Mass/volume] in Serum or Plasma MAGNESIUM BLD Lab Routine Myalgia Expected: 02/28/2023, Expires: 04/30/2023 [facility] Work Phone: Comment on above: Expected: 02/28/2023, Expires: 3 Start: 02-07-2023 Hepatitis B screening URINE ALBUMIN:CREATININE RATIO [facility] Start: 02-07-2023 Hepatitis B surface antibody level LDL CHOLESTEROL [facility] Start: 02-06-2023 Hemoglobin A1c/Hemoglobin.total in Blood HBA1C [facility] Start: 01-25-2023 ANNUAL PCP TEAM CHRONIC DISEASE VISIT ANNUAL PCP TEAM CHRONIC DISEASE VISIT [facility] Start: 11-04-2022 DEPRESSION ASSESSMENT DEPRESSION ASSESSMENT [facility] Start: 10-16-2022 End: 12-16-2022 Thyrotropin [Units/volume] in Serum or Plasma TSH BLD Lab Routine Lightheadedness Expected: 10/16/2022, Expires: 12/16/2022 [facility] Work Phone: Comment on above: Expected: 10/16/2022, Expires: 3 Start: 10-06-2022 Adult depression screening assessment DEPRESSION SCREENING [facility] Start: 10-05-2022 Glaucoma screening Dilated Retinal Exam [facility] Start: 10-05-2022 Hepatitis C antibody, confirmatory test DILATED RETINAL EXAM [facility] Start: 09-04-2022 End: 11-04-2022 Basic metabolic 2000 panel - Serum or Plasma BASIC METABOLIC PNL Lab Routine Lightheadedness Expected: 09/04/2022, Expires: 11/04/2022 [facility] Work Phone: Comment on above: Expected: 09/04/2022, Expires: 3 Start: 09-04-2022 End: 11-04-2022 CBC W Auto Differential panel - Blood CBC + DIFF Lab Routine Lightheadedness Expected: 09/04/2022, Expires: 11/04/2022 [facility] Work Phone: Comment on above: Expected: 09/04/2022, Expires: 3 Start: 08-16-2022 Patient referral [facility] Work Phone: Start: 08-09-2022 Hemoglobin A1c/Hemoglobin.total in Blood HBA1C [facility] Start: 08-02-2022 End: 10-02-2022 Hemoglobin A1c in Blood HGB A1C Lab Routine Type 2 diabetes mellitus with microalbuminuria, with long-term current use of insulin (HCC) Expected: 08/02/2022, Expires: 10/02/2022 [facility] Work Phone: Comment on above: Expected: 08/02/2022, Expires: 2 Start: 08-02-2022 End: 10-02-2022 Lipid 1996 panel - Serum or Plasma LIPID PANEL BASIC Lab Routine Type 2 diabetes mellitus with microalbuminuria, with long-term current use of insulin (HCC) Expected: 08/02/2022, Expires: 10/02/2022 [facility] Work Phone: Comment on above: Expected: 08/02/2022, Expires: 2 Start: 08-02-2022 End: 10-02-2022 Thyrotropin [Units/volume] in Serum or Plasma TSH BLD Lab Routine Fatigue, unspecified type Expected: 08/02/2022, Expires: 10/02/2022 [facility] Work Phone: Comment on above: Expected: 08/02/2022, Expires: 2 Start: 07-20-2022 3 comp foot exam [facility] Start: 07-05-2022 Influenza vaccination INFLUENZA (#1) [facility] Start: 06-28-2022 Hepatitis B surface antibody level LDL CHOLESTEROL [facility] Start: 2022 Mammography MAMMOGRAM [facility] Start: 06-05-2022 End: 08-05-2022 Bacteria identified in Urine by Culture URINE CULTURE Microbiology Routine Proteinuria, unspecified type Leukocytosis, unspecified type Expected: 06/05/2022, Expires: 08/05/2022 [facility] Work Phone: Comment on above: Expected: 06/05/2022, Expires: 2 Start: 06-05-2022 End: 08-05-2022 Urinalysis complete panel - Urine URINALYSIS, WITH MICROSCOPIC Lab Routine Proteinuria, unspecified type Leukocytosis, unspecified type Expected: 06/05/2022, Expires: 08/05/2022 [facility] Work Phone: Comment on above: Expected: [...] Medication overuse headache Expected: 04/09/2022, Expires: 06/09/2022 [facility] Work Phone: Comment on above: Expected: [...] Medication overuse headache Expected: 04/09/2022, Expires: 06/09/2022 [facility] Work Phone: Comment on above: Expected: 04/09/2022, Expires: 2 Start: 12-26-2021 Patient referral [facility] Work Phone: Start: 12-13-2021 COVID-19 VACCINE (4 - Booster for Moderna series) COVID-19 VACCINE (4 - Booster for Moderna series) [facility] Start: 12-13-2021 COVID-19 VACCINE (4 - Moderna series) COVID-19 VACCINE (4 - Moderna series) [facility] Start: 11-04-2021 DEPRESSION ASSESSMENT DEPRESSION ASSESSMENT [facility] Start: 08-11-2021 Hepatitis B screening URINE ALBUMIN:CREATININE RATIO [facility] Start: 07-15-2021 Hemoglobin A1c/Hemoglobin.total in Blood HBA1C [facility] Start: 07-28-2020 PNEUMOCOCCAL (2 - PCV) PNEUMOCOCCAL (2 - PCV) [facility] Start: 07-28-2020 Pneumococcal vaccination Pneumococcal Vaccine (2 of 2 - PCV) [facility] Start: 09-24-2017 End: 09-24-2017 Appointment Appointment [facility] Work Phone: Start: 09-23-2017 End: 09-23-2017 Appointment Appointment [facility] Work Phone: Start: 09-17-2017 End: 09-17-2017 Appointment Appointment [facility] Work Phone: Start: 09-16-2017 End: 09-16-2017 Appointment Appointment [facility] Work Phone: Start: 09-12-2017 End: 09-12-2017 Appointment Appointment [facility] Work Phone: Start: 09-10-2017 End: 09-10-2017 Appointment Appointment [facility] Work Phone: Start: 09-09-2017 End: 09-09-2017 Appointment Appointment [facility] Work Phone: Start: 09-05-2017 End: 09-05-2017 Appointment Appointment [facility] Work Phone: [...] Follow up Appt 3x/week [facility] Work Phone: Start: 08-12-2017 End: 08-13-2017 Follow up Appt 3x/week Follow up Appt 3x[facility]week [facility] Work Phone: Start: 08-08-2017 End: 08-08-2017 Follow up Appt 3x/week [facility] Work Phone: Start: 08-06-2017 End: 08-06-2017 Follow up Appt 3x/week Follow up Appt 3x/week [facility] Work Phone: Start: 07-02-2017 End: 07-02-2017 Mri spinal canal lumbar w/o contrast material MRI Lumbar Spine [facility] Work Phone: Start: 06-06-2017 End: 06-06-2017 Mri spinal canal lumbar w/o contrast material MRI Lumbar Spine [facility] Work Phone: Start: 05-10-2017 End: 05-10-2017 Radex spine lumbosacral minimum 4 views X-Ray, Spine, Lumbosacral 2-3 views [facility] Work Phone: Start: 05-09-2017 End: 05-09-2017 Physical Therapy General Physical Therapy [facility], [address] [place] [address], [id number] [facility] Work Phone: Start: 2001 HEPATITIS B (1 of 3 - Risk 3-dose series) HEPATITIS B (1 of 3 - Risk 3-dose series) [facility] Start: 2000 BP CONTROLLED (<130/80) BP CONTROLLED (<130/80) [facility] Start: 2000 Depression Screening Depression Screening [facility] Start: 1982 HEPATITIS B (1 of 3 - 3-dose series) HEPATITIS B (1 of 3 - 3-dose series) [facility] Chiropractic manipulation [facility] End: 03-29-2024 Ct soft tissue neck w/contrast material CT NECK SOFT TISSUE W IVCON Radiology Routine Soft tissue mass 1 Occurrences starting 02/28/2023 until 03/29/2024 [facility] Work Phone: Comment on above: 1 Occurrences starting 02/28/2023 until 03/29/2024 End: 12-17-2025 DBT Breast - bilateral screening FLASH SCREENING W JAQUELIN Radiology Routine Encounter for screening mammogram for breast cancer 1 Occurrences starting 11/17/2024 until 12/17/2025 [facility] Work Phone: Comment on above: 1 Occurrences starting 11/17/2024 until 12/17/2025 End: 07-07-2026 DBT Breast - bilateral screening FLASH SCREENING W JAQUELIN Radiology Routine Encounter for screening mammogram for breast cancer 1 Occurrences starting 06/07/2025 until 07/07/2026 [facility] Comment on above: 1 Occurrences starting 06/07/2025 until 07/07/2026 End: 09-04-2023 ECG COMPLETE ECG COMPLETE ECG Routine Prolonged Q-T interval on ECG 1 Occurrences starting 09/04/2022 until 09/04/2023 [facility] Work Phone: Comment on above: 1 Occurrences starting 09/04/2022 until 09/04/2023 Electrocardiographic procedure [facility] End: 03-05-2024 EPIL EEG ROUTINE EPIL EEG ROUTINE NEUROLOGY Routine Altered awareness, transient 1 Occurrences starting 03/05/2023 until 03/05/2024 [facility] Work Phone: Comment on above: 1 Occurrences starting 03/05/2023 until 03/05/2024 Hemoglobin A1c/Hemoglobin.total in Blood [facility] Injection aa&/strd suprascapular nerve INJECT NERV BLCK,SUPRASCAP N. Procedures Routine Adhesive capsulitis of left shoulder Primary osteoarthritis of left shoulder Ordered: 05/10/2022 [facility] Work Phone: Comment on above: Ordered: 05/10/2022 Magnesium [Mass/volu me] in Serum or Plasma [facility] Work Phone: End: 07-05-2024 FLASH SCREENING FLASH SCREENING Radiology Routine Encounter for screening mammogram for malignant neoplasm of breast 1 Occurrences starting 06/06/2023 until 07/05/2024 [facility] Work Phone: Comment on above: 1 Occurrences starting 06/06/2023 until 07/05/2024 End: 01-07-2025 FLASH SCREENING W JAQUELIN FLASH SCREENING W JAQUELIN Radiology Routine Encounter for screening mammogram for malignant neoplasm of breast 1 Occurrences starting 12/09/2023 until 01/07/2025 [facility] Work Phone: Comment on above: 1 Occurrences starting 12/09/2023 until 01/07/2025 MR Lower Extremity Joint [facility] End: 01-06-2024 Mri brain brain stem w/o contrast material MRI BRAIN WO IVCON Radiology Routine Post concussion syndrome Intractable acute post-traumatic headache Dizziness Cervicalgia 1 Occurrences starting 12/07/2022 until 01/06/2024 [facility] Work Phone: Comment on above: 1 Occurrences starting 12/07/2022 until 01/06/2024 End: 01-06-2024 Mri spinal canal cervical w/o contrast matrl MRI CERVICAL SPINE WO IVCON Radiology Routine Post concussion syndrome Intractable acute post-traumatic headache Dizziness Cervicalgia 1 Occurrences starting 12/07/2022 until 01/06/2024 [facility] Work Phone: Comment on above: 1 Occurrences starting 12/07/2022 until 01/06/2024 Patient Education [facility] Work Phone: Patient referral [facility] Work Phone: End: 03-01-2024 US HEAD/NECK SOFT TISSUE OTHER US HEAD/NECK SOFT TISSUE OTHER Radiology Routine Soft tissue mass 1 Occurrences starting 01/31/2023 until 03/01/2024 [facility] Work Phone: Comment on above: 1 Occurrences starting 01/31/2023 until 03/01/2024 US Heart [facility] Work Phone: End: 10-17-2025 XR Chest PA and Lateral XR CHEST 2V FRONTAL/LAT Radiology Routine Cough, unspecified type 1 Occurrences starting 07/21/2024 until 08/20/2025 [facility] Work Phone: Comment on above: 1 Occurrences starting 07/21/2024 until 08/20/2025 End: 01-10-2026 XR Chest PA and Lateral XR CHEST 2V FRONTAL/LAT Radiology STAT Sinobronchitis 1 Occurrences starting 12/11/2024 until 01/10/2026 [facility] Work Phone: Comment on above: 1 Occurrences starting 12/11/2024 until 01/10/2026 End: 05-31-2023 XR RIBS/CHEST 3V AP RIB/OBLS/CXR LEFT XR RIBS/CHEST 3V AP RIB/OBLS/CXR LEFT Radiology Routine Rib pain 1 Occurrences starting 05/01/2022 until 05/31/2023 [facility] Work Phone: Comment on above: 1 Occurrences starting 05/01/2022 until 05/31/2023 [facility] Immunizations Immunization Date Immunization Notes Care Provider [facility] 09-08-2024 influenza, seasonal, injectable, preservative free Dr. Ivette Grimes MD Work Phone: [facility] 09-08-2024 influenza virus vacc ine, unspecified formulation Ivette Grimes MD Work Phone: [facility] 09-23-2023 influenza virus vacc ine, unspecified formulation Ivette Grimes MD Work Phone: [facility] 09-19-2023 influenza, injectabl e, quadrivalent, preservative free Self Referred [facility] 08-06-2022 influenza, injectabl e, quadrivalent, preservative free Dr. Ivette Grimes Work Phone: [facility] 08-06-2022 influenza, seasonal, injectable Ivette Grimes MD Work Phone: [facility] 08-06-2022 influenza virus vacc ine, unspecified formulation Ivette Grimes MD Work Phone: [facility] 10-18-2021 Covid (Moderna) Dr. Ivette Grimes Work Phone: [facility] 08-01-2021 influenza virus vacc ine, unspecified formulation Elle Sanchez MD Work Phone: [facility] 08-01-2021 influenza, injectabl e, quadrivalent, preservative free Dr. Ivette Grimes Work Phone: [facility] 08-01-2021 influenza, seasonal, injectable Dr. Ivette Grimes Work Phone: [facility] 08-01-2021 influenza, seasonal, injectable, preservative free Ivette Grimes MD Work Phone: [facility] 11-29-2020 COVID-19 vaccine, fu ll dose (MODERNA) Elle Sanchez MD Work Phone: [facility] 11-01-2020 Covid (Moderna) Dr. Ivette Grimes Work Phone: [facility] 10-31-2020 COVID-19 vaccine, fu ll dose (MODERNA) Elle Sanchez MD Work Phone: [facility] 08-02-2020 influenza, injectabl e, quadrivalent, preservative free Dr. Ivette Grimes Work Phone: [facility] 08-02-2020 influenza, seasonal, injectable Dr. Ivette Grimes [facility] [place] 08-02-2020 influenza, seasonal, injectable, preservative free Ivette Grimes MD Work Phone: [facility] 08-01-2020 influenza virus vacc ine, unspecified formulation Elle Sanchez MD Work Phone: [facility] 07-30-2019 influenza, injectabl e, quadrivalent, contains preservative Ivette Grimes MD Work Phone: [facility] 07-30-2019 influenza, injectabl e, quadrivalent, preservative free Dr. Ivette Grimes Work Phone: [facility] [place] 07-30-2019 influenza, seasonal, injectable Dr. Ivette Grimes Work Phone: [facility] [place] 07-28-2019 pneumococcal polysaccharide vaccine, 23 valent Elle Sanchez MD Work Phone: [facility] 08-01-2018 influenza, injectabl e, quadrivalent, preservative free Dr. Ivette Grimes Work Phone: [facility] [place] 08-01-2018 influenza, seasonal, injectable Dr. Ivette Grimes Work Phone: [facility] 08-07-2017 influenza, seasonal, injectable Elle Sanchez MD Work Phone: [facility] 07-31-2017 influenza, injectabl e, quadrivalent, preservative free Dr. Ivette Grimes Work Phone: [facility] [place] 07-31-2017 influenza, seasonal, injectable Dr. Ivette Grimes Work Phone: [facility] 08-02-2016 influenza, injectabl e, quadrivalent, preservative free Dr. Ivette Grimes Work Phone: [facility] [place] 08-02-2016 influenza, seasonal, injectable Dr. Ivette Grimes Work Phone: [facility] 07-09-2016 influenza, injectabl e, quadrivalent, contains preservative Elle Sanchez MD Work Phone: [facility] 03-05-2016 hepatitis B vaccine, pediatric or pediatric/adolescent dosage Elle Sanchez MD Work Phone: [facility] 03-05-2016 hepatitis B vaccine, unspecified formulation Elle Sanchez MD Work Phone: [facility] 07-25-2015 influenza, injectabl e, quadrivalent, contains preservative Ivette Grimes MD Work Phone: [facility] 07-25-2015 influenza, injectabl e, quadrivalent, preservative free Dr. Ivette Grimes Work Phone: [facility] [place] 07-25-2015 influenza, seasonal, injectable Dr. Ivette Grimes Work Phone: [facility] [place] 07-25-2015 varicella virus vaccine Cathy Sanchez MD Work Phone: [facility] 06-06-2015 hepatitis B vaccine, pediatric or pediatric/adolescent dosage Elle Sanchez MD Work Phone: [facility] 05-05-2015 hepatitis B vaccine, pediatric or pediatric/adolescent dosage Elle Sanchez MD Work Phone: [facility] 06-01-2013 tetanus toxoid, redu jamila diphtheria toxoid, and acellular pertussis vaccine, adsorbed Elle Sanchez MD Work Phone: [facility] 02-22-2009 human papilloma viru s vaccine, quadrivalent Elle Sanchez MD Work Phone: [facility] Work Phone: 09-27-2008 human papilloma viru s vaccine, quadrivalent Elle Sanchez MD Work Phone: [facility] Work Phone: 07-20-2008 human papilloma viru s vaccine, quadrivalent Elle Sanchez MD Work Phone: [facility] Work Phone: Payers Date Payer Category Payer Unknown [id number] 2024 Self-pay [phone] [id number] 2022 Government (not [facility] care or Medicaid) [facility] [id number] 2022 Private Health Insurance [id number] .[id number]. [id number] 2022 Unknown [id number] 2020 Unknown [id number]. [id number] 2019 Unknown [id number]. 1.13.159.2. 7.3.237936.315 2015 Unknown [id number] Unknown [id number] Unknown [id number] 2.16.840.1.999238.3.579.2. 462 Unknown [id number] 2.16.840.1.384085.3.579.2. 462 Unknown [id number] 2.16.840.1.727473.3.579.2. 462 Unknown [id number] 2.16.840.1.021052.3.579.2. 462 Unknown [id number] 2.16.840.1.702307.3.579.2. 462 Unknown [id number] 2.840.1.399064.3.579.2. 462 Unknown [id number] 2.840.1.281705.3.579.2. 462 Unknown [id number] 2.840.1.487563.3.579.2. 462 Unknown [id number] 2.840.1.935345.3.579.2. 462 Unknown [id number] .840.1.311191.3.579.2. 462 Unknown [id number] .840.1.317362.3.579.2. 462 Unknown [id number] 2.840.1.299397.3.579.2. 462 Unknown [id number] .840.1.952148.3.579.2. 462 Unknown [id number] .840.1.010490.3.579.2. 462 Unknown [id number] .840.1.385472.3.579.2. 462 Unknown [id number] 840.1.057932.3.579.2. 462 Unknown [id number] .840.1.614507.3.579.2. 462 Unknown [id number] 840.1.261122.3.579.2. 462 Unknown [id number] .840.1.864489.3.579.2. 462 Unknown [id number] .840.1.465308.3.579.2. 462 Unknown [id number] 2.840.1.257093.3.579.2. 462 Unknown [id number] 2.840.1.154021.3.579.2. 462 Unknown [id number] 2.840.1.849555.3.579.2. 462 Unknown [id number] 2.16.840.1.299246.3.579.2. 462 Unknown [id number] 2.16.840.1.109425.3.579.2. 462 Unknown [id number] 2.16.840.1.738400.3.579.2. 462 Unknown [id number] 2.16.840.1.686727.3.579.2. 462 Unknown [id number] 2.16.840.1.089802.3.579.2. 462 Unknown [id number] 2.16.840.1.491860.3.579.2. 462 Unknown [id number] 2.16840.1.368733.3.579.2. 462 Unknown [id number] 2.16.840.1.710915.3.579.2. 462 Unknown [id number] 2.840.1.725301.3.579.2. 462 Unknown [id number] 2.16840.1.994372.3.579.2. 462 Social History Date Type Detail Facility Start: 03-14-2011 End: 06-10-2025 Tobacco smoking status NHIS Never smoked tobacco [facility] Start: 01-25-2022 End: 06-07-2025 Alcohol intake Current non-drinker of alcohol (finding) [facility] Start: 09-13-2020 End: 11-01-2022 History SDOH Alcohol Frequency 1 [facility] Start: 03-09-2020 History SDOH Social Connections Phone 5 [facility] Start: 03-09-2020 End: 11-01-2022 History SDOH Social Connections Get Together 2 [facility] Start: 03-09-2020 End: 11-01-2022 History SDOH Social Connections Gnosticism 3 [facility] Start: 03-09-2020 End: 11-01-2022 History SDOH Social Connections Living 7 [facility] Start: 09-13-2020 End: 11-01-2022 History SDOH Financial 4 [facility] Start: 08-15-2020 Education 16 [facility] Start: 1980 Sex Assigned At Female [facility] Start: 01-19-2022 End: 01-22-2023 Exposure to SARS-CoV-2 (event) Not sure [facility] Start: 02-06-2022 End: 02-04-2024 Tobacco smoking status NHIS Unknown if ever smoked [facility] [place] Start: 05-15-2020 None [facility] Start: 05-15-2020 Alone [facility] Start: 05-05-2020 Non-smoker [facility] Start: 03-14-2011 End: 07-19-2022 Tobacco use and exposure Smokeless tobacco non-user [facility] Work Phone: Start: 11-01-2022 History SDOH Alcohol Std Drinks 0 [facility] Start: 11-01-2022 End: 05-17-2023 History of Social function [facility] Start: 11-01-2022 End: 05-17-2023 Social connection and isolation panel [facility] Do you belong to any clubs or organizations such as Relive groups, [employer], [employer] or [employer] groups, or school groups? No [facility] Are you now , , , , never or living with a partner? Never [facility] How often to you hav e a drink containing alcohol? Never [facility] Start: 10-05-2012 How many standard drinks containing alcohol do you have on a typical day? Patient does not drink [facility] How hard is it for y ou to pay for the very basics like food, housing, medical care, and heating Not very hard [facility] Do you feel stress - tense, restless, nervous, or anxious, or unable to sleep at night because your mind is troubled all the time - these days [OSQ] Only a little [facility] (I/We) worried wheth er (my/our) food would run out before (I/we) got money to buy more. Never true [facility] Start: 05-27-2020 Gender identity Identifies as female gender (finding) [facility] Start: 05-27-2020 Sexual orientation Heterosexual (jesu holder) [facility] Do you belong to any clubs or organizations such as Relive groups, [employer], [employer] or [employer] groups, or school groups? Yes [facility] Start: 02-02-2025 Sex Female (finding) [facility] NEGATED: Highlighted row [facility] [place] Medical Equipment Procedure Code Equipment Code Equipment Origin al Text Equipment Identifier Dates [id number], [id number] Start: 07-22-2018 Comment on above: Test blood [...] [AUDIT-C] 0 12/11/19 10:02 AM EST User, [facility] 12-11-2024 Within the last year , have you been humiliated or emotionally abused in other ways by your partner or ex-partner? No 12/11/2024 10:02 AM EST [facility], [facility] 12-11-2024 Within the last year , have you been afraid of your partner or ex-partner? No 12/11/2024 10:02 AM EST [facility], [facility] 12-11-2024 Within the last year , have you been raped or forced to have any kind of sexual activity by your partner or ex-partner? No 12/11/2024 10:02 AM EST User, [facility] 12-11-2024 Within the last year , have you been kicked, hit, slapped, or otherwise physically hurt by your partner or ex-partner? No 12/11/2024 10:02 AM EST [facility], [facility] 12-11-2024 How often to you hav e a drink containing alcohol? Never 12/11/2024 10:02 AM EST UserShankar Never [facility] 12-11-2024 Functional status Patient does n ot drink 12/11/2024 10:02 AM EST UserShankar Patient does not drink [facility] 12-11-2024 How often do you hav e 6 or more drinks on 1 occasion? Never 12/11/2024 10:02 AM EST Shankar Angel Never [facility] 08-07-2023 Functional status Chair [facility] Work Phone: 10-22-2014 Are you deaf, or do you have serious difficulty hearing No 10/22/2014 10:49 AM Ashanti Mejia Ma No [facility] 10-22-2014 Are you blind, or do you have serious difficulty seeing, even when wearing glasses No 10/22/2014 10:49 AM Ashanti Mejia Ma No [facility] 10-22-2014 Do you have serious difficulty walking or climbing stairs No 10/22/2014 10:49 AM Ashanti Mejia Ma No [facility] 10-22-2014 Do you have difficul ty dressing or bathing No 10/22/2014 10:49 AM Ashanti Mejia Ma No [facility] 10-22-2014 Because of a physica l, mental, or emotional condition, do you have difficulty doing errands alone such as visiting a physician's office or shopping No 10/22/2014 10:49 AM Ashanti Mejia Ma No [facility] Mental Status Date Assessment Result Facility 06-23-2025 Cognitive function Voice/Name [facility] Work Phone: 11-11-2024 Cognitive function Voice/Name [facility] Work Phone: 02-04-2024 Cognitive function Level Of Cons ciousness Awake;Alert;Appropriate [facility] [place] Work Phone: 08-07-2023 Cognitive function Voice/Name [facility] Work Phone: 08-05-2023 Cognitive function Level Of Cons ciousness Awake;Alert;Appropriate;Fol lows Commands [facility] [place] Work Phone: 05-20-2023 Cognitive function Level Of Cons ciousness Awake;Alert;Appropriate [facility] [place] Work Phone: 12-03-2022 Cognitive function Level Of Cons ciousness Awake;Alert;Appropriate;Fol lows Commands [facility] [place] Work Phone: 11-27-2022 Cognitive function Level Of Cons ciousness Awake;Alert;Appropriate [facility] [place] Work Phone: 10-22-2014 Because of a physica l, mental, or emotional condition, do you have serious difficulty concentrating, remembering, or making decisions No 10/22/2014 10:49 AM EST Masters Ashanti Ramirez [facility] Clinical Notes 12-06-2012 to 06-25-2025 Note Date & Type Note Facility 06-25-2025 Progress note [facility] 06-25-2025 Progress note Note Date/Time June 25, 2025 9:35am [facility] [address] [place] [address] [address] [place] [address] OFFICE VISIT Date of Service: 06/25/25 MR#: [id number] Acct: [id number] Name: TORI GRAY Rep #: [id number] : 1980 Provider: Dr. Killian Quiroga MD Age/Sex: 45/F [place] [facility] [place] Status: Signed Intake Vital Signs 05/06/25 10:04 06/23/25 06:40 Height 5 ft 7 in 5 ft 7 in Intake Visit Reasons: left shoulder Chief Complaint: Left Shoulder 2 Day Post-Op Is patient in pain?: Yes Pain scale (1-10): 7 Allergies Corticosteroids (Glucocorticoids) (steroids) Allergy (Verified 06/25/25 09:20) Hives lidocaine Adverse Reaction (Intermediate, Verified 06/25/25 09:20) Hives Medications ?Medication ?Instructions ?Recorded ?Confirmed ?Type blood sugar diagnostic (Blood #10 ea 04/26/20 06/25/25 History Glucose Test strips) ipratropium bromide 21 mcg (0.03 2 spray intranasal BI D PRN 08/23/20 06/25/25 History %) nasal spray allergies albuterol sulfate 90 mcg/actuation 2 puff inhalation Q 4H PRN 10/07/22 08/22/25 History aerosol inhaler shortness of breath or wheez ing fexofenadine 180 mg tablet 180 mg PO DAILY allergies 1 06/25/25 History (Allergy Relief (fexofenadine)) levonorgestrel 17.5 mcg/24 hr (up 1 device intrauterin e ONCE 08/10/22 06/25/25 History to 5 yrs) 19.5mg intrauterine control device tizanidine 4 mg tablet 4 mg PO Q8H PRN Muscle Spasm 08/10/22 06/25/25 History omeprazole 20 mg capsule,delayed 20 mg PO DAILY PRN ge rd 08/16/22 06/25/25 History release topiramate 100 mg tablet 100 mg PO BID seizures 08/1606/25/25 History fluoxetine 20 mg capsule 20 mg PO QHS mental health 0 12/28/22 06/25/25 History gabapentin 300 mg capsule 300 mg PO QHS nerve pain 06/25/25 History lisinopril 10 mg tablet 10 mg PO DAILY blood pressur e 12/28/22 06/25/25 History ondansetron HCl 4 mg tablet 4 mg PO Q8H PRN nausea 06/25/25 History rimegepant 75 mg disintegrating 75 mg PO DAILY PRN rosalina ray 02/04/24 06/25/25 History tablet (Nurtec ODT) headache semaglutide 0.25 mg or 0.5 mg (2 0.5 mg subcut QWEEK 1 12/17/23 06/25/25 History mg/3 mL) subcutaneous pen injector (Ozempic) oxycodone-acetaminophen 5 mg-325 1 tab PO Q4H PRN pain 4 days #20 06/23/25 06/25/25 Rx mg tablet (Endocet) tabs PFSH Medical History (Updated 06/23/25 @ 08:31 by Brett Quiroga MD) Impingement of left shoulder Diabetes Fatty liver Gastric reflux BiPAP (biphasic [...] you feel safe at home: Yes HPI left shoulder Details: This documentation accurately reflects the service provided and the decisions made by me, Dr. Brett Quiroga MD 06/25/25 0903. Part of today?s visit was documented by [ ], acting as scribe. TORI GRAY is a 45 year old F here today for POD 2 Left shoulder arthroscopy, subacromial decompression, debridement. well. block wore off. trying to avoid the narcotics. mild pain. doing pendulums. Coding Level of Care Code Global Post Op Diagnoses Impingement of left shoulder M25.812 Assessment and Plan Assessment and Plan (1) Impingement of left shoulder: Status: Acute Plan: TORI GRAY is a 45 year old F here today for POD 2 Left shoulder arthroscopy, subacromial decompression, debridement. Doing well. Recommend to keep the dressings clean and dry change in every 1 to 2 days okay for gentle pendulum exercises gradually wean the sling and follow-up in the office in 2 weeks time. The patient understands no further questions or concerns. Plan Details Goals & Barriers: Goals Decrease spasm Improve intersegmental motion Decrease pain Decrease HAs Barriers Disc bulge Ortho Exam General General: Yes no acute distress Neurologic: Yes alert and Yes oriented x3 Psychologic: Yes reasonable and appropriate Left Shoulder Skin/Wound: Yes CDI, Yes healing, No ecchymosis, No erythema and No swelling SHOULDER: nvi mru ain/pin, ax nerves, rad pulse 2+ 06/25/25 0935 <Electronically signed by Brett judge MD> Date _ Brett Quiroga MD Cosigner Signature: Date (if applicable) CC: ~ [facility] [employer] [facility] Work Phone: 1(418) 618-105008-20-2025 Discharge summary Author Brett Quiroga [facility] [place] Note Date/Time June 23, 2025 8: 39am [facility] Medical Records Department [address] [place] [address] Instructions for Home/Discharge Instructions 06/23/25 0836 MR#: [id number] Acct: [id number] Name: TORI GRAY Rep #:[id number] : 1980 45 From: Brett Quiroga MD PCP: Dr. Ivette Grimes MD Status:REG S DC Discharge Instructions Diet Discharge Diet: No restrictions Activity May shower in (days): 1 Ice area for (Minutes): 10 Lifting Restrictions: no lifting over 1 pound Additional Activity Instructions:: pendulums 4x/day, ok for hand wrist elbow rom, ok to take breaks from sling. Dressing / Incision Call your doctor if your incision/area has: Continuous Slow Oozing, Sudden Increased Bleeding, Increased Pain/ Swelling, Increased Redness, Foul Smelling Discharge and Swelling at the incision site Call your doctor if you observe: Fever of 101 or Higher, Coldness, Increased Pain and Numbness or Tingling Change Dressing in: leave in place till F/U Cleanse incision/area with: Do not get Incision Wet Additional Dressing/Incision Instructions:: ok to change dressing if wet or you want. keep incisions covered. leave tapes on (steri strips) Follow Up Care Please Follow Up With: Brett Quiroga MD When: within 2 weeks Test Results: Test results from this visit will be discussed in further detail at your follow- up appointment, if applicable. Discharge Plan Admission Attending Provider: Brett Quiroga Primary Care Provider: Ivette Grimes Instructions Patient Instructions: After Shoulder Arthroscopy Print Language: Czech Discharge Orders/Prescriptions Prescriptions: New oxycodone-acetaminophen [Endocet] 5-325 mg tablet 1 tab PO Q4H MDD 6 PRN (Reason: pain) 4 Days Qty: 20 0RF No Action (DME) blood sugar diagnostic [Blood Glucose Test] Strip See Rx Instructions .ROUTE .MEDSUPPLY Qty: 10 Rx Instructions: As directed ipratropium bromide 0.03 % spray,non-aerosol 2 spray INTRANASAL BID PRN (Reason: allergies) Rx Instructions: administer into each nostril fexofenadine [Allergy Relief (fexofenadine)] 180 mg tablet [...] 300 mg capsule 300 mg PO QHS lisinopril 10 mg tablet 10 mg PO DAILY Patient Comments: Take 1 tablet by mouthEonce daily. ondansetron HCl 4 mg tablet 4 mg PO Q8H PRN (Reason: nausea) Patient Comments: TAKE 1 TABLET BY MOUTHEEVERY 8 HOURS NEEDED FOR NAUSEA OR VOMITING fluoxetine 20 mg capsule 20 mg PO QHS Patient Comments: Take 1 capsule by mouthConce daily. albuterol sulfate 90 mcg/actuation HFA aerosol inhaler 2 puff INHALATION Q4H PRN (Reason: shortness of breath or wheezing) tizanidine 4 mg tablet 4 mg PO Q8H PRN (Reason: Muscle Spasm) Nurtec ODT 75 mg tablet,disintegrating 75 mg PO DAILY PRN (Reason: migraine headache) Ozempic 0.25 mg or 0.5 mg (2 mg/3 mL) pen injector 0.5 mg subcut QWEEK Other Ambulatory Orders: 12 Lead EKG (Routine) Timeframe: 20250610 Location: None Selected Ordered By: Dr. Woody Choudhary Referrals / Follow Up: Brett Quiroga MD [Med Staff - Active Staff] - Ivette Grimes MD [Primary Care Provider] - Disposition Disposition (needs filled in before D/C Order can be placed): Home, Self Care 06/23/25 0839<Electronically signed by Brett Quiroga MD>Brett Quiroga MD CC: Dr. Ivette Grimes MD ~ Signed [facility] [place] Work Phone: 1(500) 959-236908-20-2025 Consult note [facility] Medical Records Department [address] [place] [address] Pre-Anesthesia Evaluation 06/23/25 0739 MR#: [id number] Acct: [id number] Name: TORI GRAY Rep #:[id number] : 1980 45 From: Ankur ROJO PCP: Dr. Ivette Grimes MD Status:REG S DC Y Race: C Location: [place] [id number] ASA Classification* ASA Classification ASA Classification: 3 Assessment & Plan Anesthesia* Anesthesia Assessment Anesthesia Assessment: Discussed sedation and/or anesthesia options, risks, benefits, and alternatives with patient/parents/legal guardian/POA. Questions invited. The patient/parents/legal guardian/POA seems to understand and agrees to proceedwith anesthesia plan. Reviewed the physical assessment, medical history, allergy history and patient home medications list prior to surgery/procedure/anesthetic and documented any changes. Performed airway and anesthesia risk assessments. Anesthesia Type Anesthesia Type: General and Block (Supraclavicular Block) Anesthesia Focused Assessment* Temperature: 97.8 F Pulse Rate: 73 Blood Pressure: 112/70 Respiratory Rate: 18 Pulse Ox: 98 Airway Assessment Mouth opens: >3 cm Mallampati Score: III Labs Anesthesia Preop lab: CBC WBC 9.5 K/mm3 (4.4-11.0) 06/05/25 09:27 06/05/25 RBC 4.17 M/mm3 (4.2-5.4) L 06/05/25 09:27 06/05/25 Hgb 13.5 g/dL (12.0-15.0) 06/05/25 09:27 06/05/25 Hct 39.2 % (37-47) 06/05/25 09:06/05/25 Plt Count 192 K/mm3 (150-450) 06/05/25 09:06/05/25 CHEMISTRY Potassium 4.0 mmol/L (3.3-5.1) 06/05/25 09:06/05/25 Sodium 137 mmol/L (133-145) 06/05/25 09:27 06/05/25 Magnesium 1.7 mg/dL (1.6-2.6) 11/11/24 06:37 11/11/24 Phosphorus 2.2 mg/dL (2.7-4.5) L 06/05/25 09:27 06/05/25 BUN 9 mg/dL (4-19) 06/05/25 09:27 06/05/25 Creatinine 0.80 mg/dL (0.70-1.20) 06/05/25 09:06/05/25 Glucose 210 mg/dL (70-99) H 06/05/25 09:27 06/05/25 POC Glucose 157 mg/dL (74-106) H 08/07/23 11:02 08/07/23 TSH 1.54 uIU/mL (0.358-3.74) 08/05/23 10:00 COAG PT 14.4 SECONDS (11.7-14.9) 08/05/23 11:15 Urine Test Negative Negative 06/23/25 06:30 06/23/25 Tst Clinic Negative 05/26/18 16:29 05/26/18 Pre-Assessment Diagnosis/Proposed Procedure Planned Operative Procedure(s): LEFT SHOULDER ARTHROSCOPY, SUBACROMIAL DECOMPRESSION DEBRIDMENT Anesthesia History 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 When Was Last Pacemaker Check QUESTION #4 FULL TEXT: You/Your Family Experience fever (hyperthermia) with Anesthesia Last Oral Intake Last Oral intake: Last Oral Intake NPO since 19:00 06/23/25 06:40 Meds taken in AM with sips of Yes 06/23/25 06:40 water? Meds patient instructed to topiramate 06/23/25 06:40 take am of surgery PONV PONV - manager of project management: PONV - manager of project management Female Yes 06/10/25 09:08 HX of Motion Sickness No 06/10/25 09:08 HX of N/V After Surgery Yes 06/10/25 09:08 Non-Smoker Yes 06/10/25 09:08 Duration of Surgery greater Yes 06/10/25 09:08 than 60 minutes Number of Risk Factors 4 06/10/25 09:08 PONV Score Severe Risk 06/10/25 09:08 Height & Weight Height & Weight: Anesthesia: Height & Weight Height 5 ft 7 in 06/23/25 06:40 Weight: 126 kg 06/23/25 06:40 Body Mass Index (BMI) 43.4 06/23/25 06:40 Respiratory Assessment Respiratory Assessment - manager of project management: Respiratory Tract Infection Hx - manager of project management Hx Respiratory Tract Infection No 06/10/25 09:08 STOP Sleep Apnea STOP Sleep Apnea - manager of project management: STOP Sleep Apnea - manager of project management Hx Hypertension No: LISINOPRIL FOR LIVER 06/10/25 [...] than talking or can be heard through closeddoors)? 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 Specify any problems Hx of Preganancy in last 3 No 06/10/25 09:08 Months Nurse Filling Out Transfusion [email or web address] 06/10/25 09:08 & Questions: Date: 06/10/25 06/10/25 09:08 Time: 09:12 06/10/25 09:08 Patient unable to answer at this time (ie. confused, unrespo /Reproduction History /Reproductive History - manager of project management: /Reproductive Hx- manager of project management Hx Now No 06/10/25 09:08 Gestational Age (in weeks): EDC: Hx Hx Para Hx Section SAB No 06/10/25 09:08 Active Medications Active Medications: Current Medications Generic Name Dose Route Start Last Admin Trade Name Freq PRN Reason Stop Dose Admin Cefazolin Sodium 3 gm/ Sodium 115 mls @ 200 mls/hr 06/23/25 07:30 Chloride IV 06/23/25 08:04 INTRAOP ONE Lactated Ringer's 1,000 mls @ 15 mls/hr 06/23/25 06:30 06/23/25 06:59 IV 15 mls/hr .Q48H GEORGE Administration PFSH Medical History Diabetes Fatty liver Gastric [...] intervertebral disc of lumbosacral region Home Medications ?Medication ?Instructions ?Recorded ?Last Taken ?Type blood sugar diagnostic (Blood #10 ea 04/26/20 Unknown History Glucose Test strips) ipratropium bromide 21 mcg (0.03 2 spray intranasal BI D PRN 08/23/20 08/03/23 History %) nasal spray allergies albuterol sulfate 90 mcg/actuation 2 puff inhalation Q 4H PRN 08/10/22 08/03/23 History aerosol inhaler shortness of breath or wheez ing fexofenadine 180 mg tablet 180 mg PO DAILY allergies 1 06/22/25 History (Allergy Relief (fexofenadine)) levonorgestrel 17.5 mcg/24 hr (up 1 device intrauterin e ONCE 08/10/22 06/23/25 History to 5 yrs) 19.5mg intrauterine control device tizanidine 4 mg tablet 4 mg PO Q8H PRN Muscle Spasm 08/10/22 06/20/25 History omeprazole 20 mg capsule,delayed 20 mg PO DAILY PRN ge rd 08/16/22 06/22/25 History release topiramate 100 mg tablet 100 mg PO BID seizures 08/1606/23/25 History fluoxetine 20 mg capsule 20 mg PO QHS mental health 0 12/28/22 06/22/25 History gabapentin 300 mg capsule 300 mg PO QHS nerve pain 06/22/25 History lisinopril 10 mg tablet 10 mg PO DAILY blood pressur e 12/28/22 06/22/25 History ondansetron HCl 4 mg tablet 4 mg PO Q8H PRN nausea Unknown History rimegepant 75 mg disintegrating 75 mg PO DAILY PRN rosalina ray 02/04/24 11/10/24 History tablet (Nurtec ODT) headache semaglutide 0.25 mg or 0.5 mg (2 0.5 mg subcut QWEEK 1 12/17/23 06/10/25 History mg/3 mL) subcutaneous pen injector (Ozempic) Allergy/AdvReac Type Severity Reaction Status Date / Time Corticosteroids Allergy Hives Verified 06/23/25 06:38 (Glucocorticoids) (steroids) lidocaine AdvReac Intermediate Hives Verified 06/23/25 06:38 Family History Father Diabetes Myocardial infarction Pancreatic cancer Mother Alcohol abuse Drug abuse Grandfather Diabetes Grandmother Lung cancer Grandmother Heart disease Triple bypass surgery Surgical History History of urethral stent (~2018) Hx laparoscopic cholecystectomy (~2005) H/O: (~2005) Social History Smoking Status: Never smoker alcohol intake: never substance use type: does not use caffeine: Yes Type: coffee what type of physical activity do you participate in: walking frequency: daily seatbelt use: always do you feel safe at home: Yes Review of Systems (Anesthesia) ROS Narrative System reviewed and no additional complaints, except as documented. 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 Ivette Grimes MD Status:REG S DC Y Race: C Location: [place] [address] ASA Classification* ASA Classification ASA Classification: 3 Assessment & Plan Anesthesia* Anesthesia Assessment Anesthesia Assessment: Discussed sedation and/or anesthesia options, risks, benefits, and alternatives with patient/parents/legal guardian/POA. Questions invited. The patient/parents/legal guardian/POA seems to understand and agrees to proceedwith anesthesia plan. Reviewed the physical assessment, medical history, allergy history and patient home medications list prior to surgery/procedure/anesthetic and documented any changes. Performed airway and anesthesia risk assessments. Anesthesia Type Anesthesia Type: General and Block (Supraclavicular Block) Anesthesia Focused Assessment* Temperature: 97.8 F Pulse Rate: 73 Blood Pressure: 112/70 Respiratory Rate: 18 Pulse Ox: 98 Airway Assessment Mouth opens: >3 cm Mallampati Score: III Labs Anesthesia Preop lab: CBC WBC 9.5 K/mm3 (4.4-11.0) 06/05/25 09:06/05/25 RBC 4.17 M/mm3 (4.2-5.4) L 06/05/25 09:06/05/25 Hgb 13.5 g/dL (12.0-15.0) 06/05/25 09:06/05/25 Hct 39.2 % (37-47) 06/05/25 09:27 06/05/25 Plt Count 192 K/mm3 (150-450) 06/05/25 09:06/05/25 CHEMISTRY Potassium 4.0 mmol/L (3.3-5.1) 06/05/25 09:27 06/05/25 Sodium 137 mmol/L (133-145) 06/05/25 09:27 06/05/25 Magnesium 1.7 mg/dL (1.6-2.6) 11/11/24 06:37 11/11/24 Phosphorus 2.2 mg/dL (2.7-4.5) L 06/05/25 09:27 06/05/25 BUN 9 mg/dL (4-19) 06/05/25 09:27 06/05/25 Creatinine 0.80 mg/dL (0.70-1.20) 06/05/25 09:27 06/05/25 Glucose 210 mg/dL (70-99) H 06/05/25 09:27 06/05/25 POC Glucose 157 mg/dL (74-106) H 08/07/23 11:02 08/07/23 TSH 1.54 uIU/mL (0.358-3.74) 08/05/23 10:00 COAG PT 14.4 SECONDS (11.7-14.9) 08/05/23 11:15 Urine Test Negative Negative 06/23/25 06:30 06/23/25 Tst Clinic Negative 05/26/18 16:29 05/26/18 Pre-Assessment Diagnosis/Proposed Procedure Planned Operative Procedure(s): LEFT SHOULDER ARTHROSCOPY, SUBACROMIAL DECOMPRESSION DEBRIDMENT Anesthesia History 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 When Was Last Pacemaker Check QUESTION #4 FULL TEXT: You/Your Family Experience fever (hyperthermia) with Anesthesia Last Oral Intake Last Oral intake: Last Oral Intake NPO since 19:00 06/23/25 06:40 Meds taken in AM with sips of Yes 06/23/25 06:40 water? Meds patient instructed to topiramate 06/23/25 06:40 take am of surgery PONV PONV - manager of project management: PONV - manager of project management Female Yes 06/10/25 09:08 HX of Motion Sickness No 06/10/25 09:08 HX of N/V After Surgery Yes 06/10/25 09:08 Non-Smoker Yes 06/10/25 09:08 Duration of Surgery greater Yes 06/10/25 09:08 than 60 minutes Number of Risk Factors 4 06/10/25 09:08 PONV Score Severe Risk 06/10/25 09:08 Height & Weight Height & Weight: Anesthesia: Height & Weight Height 5 ft 7 in 06/23/25 06:40 Weight: 126 kg 06/23/25 06:40 Body Mass Index (BMI) 43.4 06/23/25 06:40 Respiratory Assessment Respiratory Assessment - manager of project management: Respiratory Tract Infection Hx - manager of project management Hx Respiratory Tract Infection No 06/10/25 09:08 STOP Sleep Apnea STOP Sleep Apnea - manager of project management: STOP Sleep Apnea - manager of project management Hx Hypertension No: LISINOPRIL FOR LIVER 06/10/25 [...] Tobacco Use History Tobacco Use History - manager of project management: Tobacco Use History - manager of project management Tobacco Use Non-smoker 03/09/25 09:20 Smoking Status Never smoker 06/10/25 09:08 Hx Tobacco Use No 06/10/25 09:08 Years Smoking Packs Smoked per Day Smoking Cessation Date was within the last 15 years Hx Smoking Cessation Date Hx Smoking Cessation Counseling Hematologic Medial History Hematologic Hx - manager of project management: Hematologic 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 Specify any problems Hx of Preganancy in last 3 No 06/10/25 09:08 Months Nurse Filling Out Transfusion [email or web address] 06/10/25 09:08 & Questions: Date: 06/10/25 06/10/25 09:08 Time: 09:12 06/10/25 09:08 Patient unable to answer at this time (ie. confused, unrespo /Reproduction History /Reproductive History - manager of project management: /Reproductive Hx- manager of project management Hx Now No 06/10/25 09:08 Gestational Age (in weeks): EDC: Hx Hx Para Hx Section SAB No 06/10/25 09:08 Active Medications Active Medications: Current Medications Generic Name Dose Route Start Last Admin Trade Name Freq PRN Reason Stop Dose Admin Cefazolin Sodium 3 gm/ Sodium 115 mls @ 200 mls/hr 06/23/25 07:30 Chloride IV 06/23/25 08:04 INTRAOP ONE Lactated Ringer's 1,000 mls @ 15 mls/hr 06/23/25 06:30 06/23/25 06:59 IV 15 mls/hr .Q48H GEORGE Administration PFSH Medical History Diabetes Fatty liver Gastric [...] intervertebral disc of lumbosacral region Home Medications ?Medication ?Instructions ?Recorded ?Last Taken ?Type blood sugar diagnostic (Blood #10 ea 04/26/20 Unknown History Glucose Test strips) ipratropium bromide 21 mcg (0.03 2 spray intranasal BI D PRN 08/23/20 08/03/23 History %) nasal spray allergies albuterol sulfate 90 mcg/actuation 2 puff inhalation Q 4H PRN 08/10/22 08/03/23 History aerosol inhaler shortness of breath or wheez ing fexofenadine 180 mg tablet 180 mg PO DAILY allergies 1 06/22/25 History (Allergy Relief (fexofenadine)) levonorgestrel 17.5 mcg/24 hr (up 1 device intrauterin e ONCE 08/10/22 06/23/25 History to 5 yrs) 19.5mg intrauterine control device tizanidine 4 mg tablet 4 mg PO Q8H PRN Muscle Spasm 08/10/22 06/20/25 History omeprazole 20 mg capsule,delayed 20 mg PO DAILY PRN ge rd 08/16/22 06/22/25 History release topiramate 100 mg tablet 100 mg PO BID seizures 08/1606/23/25 History fluoxetine 20 mg capsule 20 mg PO QHS mental health 0 12/28/22 06/22/25 History gabapentin 300 mg capsule 300 mg PO QHS nerve pain 06/22/25 History lisinopril 10 mg tablet 10 mg PO DAILY blood pressur e 12/28/22 06/22/25 History ondansetron HCl 4 mg tablet 4 mg PO Q8H PRN nausea Unknown History rimegepant 75 mg disintegrating 75 mg PO DAILY PRN rosalina ray 02/04/24 11/10/24 History tablet (Nurtec ODT) headache semaglutide 0.25 mg or 0.5 mg (2 0.5 mg subcut QWEEK 1 12/17/23 06/10/25 History mg/3 mL) subcutaneous pen injector (Ozempic) Allergy/AdvReac Type Severity Reaction Status Date / Time Corticosteroids Allergy Hives Verified 06/23/25 06:38 (Glucocorticoids) (steroids) lidocaine AdvReac Intermediate Hives Verified 06/23/25 06:38 Family History Father Diabetes Myocardial infarction Pancreatic cancer Mother Alcohol abuse Drug abuse Grandfather Diabetes Grandmother Lung cancer Grandmother Heart disease Triple bypass surgery Surgical History History of urethral stent (~2018) Hx laparoscopic cholecystectomy (~2005) H/O: (~2005) Social History Smoking Status: Never smoker alcohol intake: never substance use type: does not use caffeine: Yes Type: coffee what type of physical activity do you participate in: walking frequency: daily seatbelt use: always do you feel safe at home: Yes Review of Systems (Anesthesia) ROS Narrative System reviewed and no additional complaints, except as documented. 06/23/2539 <Electronically signed by Ankur Templeton CRNA> Date _ Ankur Templeton CRNA Cosigner Signature: Date CC: ~ Signed [facility] Work Phone: 1(619) 779-885808-20-2025 History and physical note Author Brett Quiroga [facility] Note Date/Time June 23, 2025 7: 14am [facility] Medical Records Department [address] [place] [address] History & Physical Exam 06/23/2512 MR#: [id number] Acct: [id number] Name: TORI GRAY Rep #:[id number] : 1980 45 From: Brett Quiroga MD PCP: Dr. Ivette Grimes MD Status:REG S DC Location: [place] [address] HPI - General HPI Narrative TORI GRAY, is a 45 F who presents for left shoulder arthroscopy, subacromial decompression, debridement. no change to h and p. ok to proceed. rab, post op instructions, narcotic counselling. possible licodaine allergy, butafter discussion with anesthesia, the patient and the anesthesia provider have decided to proceed with a block. left shoulder marked. ok to proceed. MR#: [id number] Acct: [id number] Name: TORI GRAY Rep #: [id number] : 1980 Provider: Dr. Brett Quiroga MD Age/Sex: 44/F Location[place] [facility] [place] Status: Signed Intake Vital Signs 03/22/2509:08 05/06/2510:04 Height 5 ft 7 in 5 ft 7 in Weight: 275 lb BMI 43.0 Intake Visit Reasons: LEFT SHOULDER Chief Complaint: Left shoulder MRI review Accompanied by: Self Is patient in pain?: Yes Pain scale (1-10): 7 Allergies Corticosteroids (Glucocorticoids) (steroids) Allergy (Verified 05/06/25 10:08) Hiveslidocaine Adverse Reaction (Intermediate, Verified 05/06/25 10:08) Hives Medications ?Medication ?Instructions ?Recorded ?Confirmed ?Type blood sugar diagnostic (Blood #10 ea 04/26/20 05/06/25 History Glucose Test strips) ipratropium bromide 21 mcg (0.03 2 spray intranasal BID allergies 0 01/26 History %) nasal spray albuterol sulfate 90 mcg/actuation 2 puff inhalation Q4H PRN 08/10/2205/06 History aerosol inhaler shortness of breath or wheezing fexofenadine 180 mg tablet 180 mg PO DAILY allergies 08/10/2205/06 History (Allergy Relief (fexofenadine)) levonorgestrel 17.5 mcg/24 hr (up 1 device intrauterine ONCE 2 05/06/25 History to 5 yrs) 19.5mg intrauterine control device tizanidine 4 mg tablet 4 mg PO Q8H PRN Muscle Spasm 08/10/22 History omeprazole 20 mg capsule,delayed 20 mg PO DAILY PRN gerd 08/16/22 5 History release topiramate 100 mg tablet 100 mg PO BID seizures 08/16/22 05/06/25 History fluoxetine 20 mg capsule 20 mg PO DAILY mental health 12/28/22 History gabapentin 300 mg capsule 300 mg PO BID nerve pain 12/28/22 History lisinopril 10 mg tablet 10 mg PO DAILY blood pressure 12/28/22 0 05/06/25 History ondansetron HCl 4 mg tablet 4 mg PO Q8H PRN nausea 12/28/22 05/06/25 History rimegepant 75 mg disintegrating 75 mg PO DAILY PRN migraine 02/04/2401/26 History tablet (Nurtec ODT) headache semaglutide 0.25 mg or 0.5 mg (2 0.5 mg subcut QWEEK 10/16/24 05/06/25 Hi story mg/3 mL) subcutaneous pen injector (Ozempic) potassium chloride 20 mEq oral 20 meq PO BID 7 days #30 ea 11/11/2401/26 Rx packet Have you fallen in the [...] Family History Father Diabetes Myocardial infarction Pancreatic cancerMother Alcohol abuse Drug abuseGrandfather DiabetesGrandmother Lung cancerGrandmother Heart disease Triple bypass surgery Social History [...] and the decisions made by me, Dr. Brett Quiroga MD 05/06/25 0908. Part of today?s visit was documented by [ ], acting as scribe. TORI GRAY is a 44 year old F here today for follow-up left shoulder MRI. Doing PT [facility]. getting worse. cant do injections. seems to be getting worse, with ADLs as well. worse with lifting. lat and anterior pain. 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 Supplemental Info [facility] Imaging Services [address] [place] [id number] Upper Ext Joint Only(Routine) MR#: [id number] Acct: [id number] Name: TORI GRAY Rep #: [id number] : 1980 F 44 From: Salazar Tyson MD PCP: Dr. Ivette Grimes MD Status: REG CLI Study: Upper Ext Joint Only(Routine) Date of Exam: 04/17/25 Exam# [id number] Ordering Dr: Brett Quiroga MD PROCEDURE: UPPER [...] is present within the biceps tendon groove. T he biceps tendon anchors appear intact. Effusion: There [...] subdeltoid bursa, with bursitis. Reading Location: [facility] I independently reviewed the imaging. Concur with radiologist report. Coding Level of Care Code Off vis,est,level 4 Diagnoses Left shoulder pain M25.512 Assessment and Plan Assessment and Plan (1) Left shoulder pain: Status: Inactive Plan: TORI GRAY is a 44 year old F here today for left shoulder pain. MRI shows tendinopathy of the rotator cuff tendonopathy as well as mild bursitis no tears or cysts. There is mild distal supraspinatus tendinopathy without full-thickness tear or retraction. There is a trace joint effusion. There is a small amount of fluid in the subacromial subdeltoid bursa, with bursitis. We went over the nonoperative and surgical option for this. In terms of surgery this would be a left shoulder arthroscopy, subacromial decompression, debridement. If I saw anything else that was not on the MRI I would address that as well such as a rotator cuff tear or SLAP tear. Patient understands wished to go ahead with surgery they have obstructive sleep apnea and diabetes can increase the risk of perioperative complications like infection or possibly the need to stay overnight to monitor breathing I advised the patient to bring her CPAP machine. The patient understands no further questions or concerns on the consent form for surgery. Patient counselled on non-operative and operative means of treating shoulder pain. Conservative options include but not limited to: 1. Rest and Activity Modification: Giving your shoulder time to heal by avoiding movements that cause pain can help. This may involve limiting overhead activities or heavy lifting. 2. Physical Therapy: A physical therapist can guide you through exercises that strengthen the muscles around the shoulder, improve flexibility, and reduce strain on the rotator cuff tendon. 3. Ice and Heat Therapy: Applying ice to the shoulder can help reduce swelling and pain, especially after activity. Heat can be helpful to relax tense muscles and improve blood flow before exercises. 4. Anti-Inflammatory Medications: Oifl-xsz-uixddhr medications like ibuprofen or naproxen can help reduce pain and inflammation in the tendon. 5. Corticosteroid Injections: If the pain is more severe, a steroid injection can reduce inflammation in the shoulder and provide relief for a longer period. 6. Platelet-Rich Plasma (PRP) Injection: This treatment involves using your own blood to promote healing in the tendon. The plasma is rich in growth factors that can encourage tissue repair. 7. TENS (Transcutaneous Electrical Nerve Stimulation): This therapy uses a small electrical current to help manage pain and promote healing by stimulating nerves. Plan Details Goals & Barriers: Goals Decrease spasm Improve intersegmental motion Decrease pain Decrease HAs Barriers Disc bulge Clinical Quality Measures Falls Risk Screening/Assistive Devices Have you fallen in the past year?: No Ortho Exam General General: Yes no acute distress Neurologic: Yes alert and Yes oriented x3 Psychologic: Yes reasonable and appropriate Left Shoulder Skin/Wound: Yes CDI, No ecchymosis, No erythema and No swelling Testing: Yes Hawkin's, Yes Neer's, Yes Speed's, Yes TTP Biceps, Yes TTP AC Joint, Yes AROM-Forward Elevation 0-180, Yes AROM-External Rotation at side 0- 60, Yes empty can, No scapular winging and Yes belly press normal SHOULDER: normal motor and sens to axillary N, MRU and AIN/PIN. Hand warm well perfused normal radial pulse. strength FE 4+, ER 5/5. [facility] Medical History Diabetes Fatty liver Gastric reflux [...] intervertebral disc of lumbosacral region Home Medications ?Medication ?Instructions ?Recorded ?Last Taken ?Type blood sugar diagnostic (Blood #10 ea 04/26/20 Unknown History Glucose Test strips) ipratropium bromide 21 mcg (0.03 2 spray intranasal BI D PRN 08/23/20 08/03/23 History %) nasal spray allergies albuterol sulfate 90 mcg/actuation 2 puff inhalation Q 4H PRN 08/10/22 08/03/23 History aerosol inhaler shortness of breath or wheez ing fexofenadine 180 mg tablet 180 mg PO DAILY allergies 1 06/22/25 History (Allergy Relief (fexofenadine)) levonorgestrel 17.5 mcg/24 hr (up 1 device intrauterin e ONCE 08/10/22 06/23/25 History to 5 yrs) 19.5mg intrauterine control device tizanidine 4 mg tablet 4 mg PO Q8H PRN Muscle Spasm 08/10/22 06/20/25 History omeprazole 20 mg capsule,delayed 20 mg PO DAILY PRN ge rd 08/16/22 06/22/25 History release topiramate 100 mg tablet 100 mg PO BID seizures 08/1606/23/25 History fluoxetine 20 mg capsule 20 mg PO QHS mental health 0 12/28/22 06/22/25 History gabapentin 300 mg capsule 300 mg PO QHS nerve pain 06/22/25 History lisinopril 10 mg tablet 10 mg PO DAILY blood pressur e 12/28/22 06/22/25 History ondansetron HCl 4 mg tablet 4 mg PO Q8H PRN nausea Unknown History rimegepant 75 mg disintegrating 75 mg PO DAILY PRN rosalina ray 02/04/24 11/10/24 History tablet (Nurtec ODT) headache semaglutide 0.25 mg or 0.5 mg (2 0.5 mg subcut QWEEK 1 12/17/23 06/10/25 History mg/3 mL) subcutaneous pen injector (Ozempic) Allergy/AdvReac Type Severity Reaction Status Date / Time Corticosteroids Allergy Hives Verified 06/23/25 06:38 (Glucocorticoids) (steroids) lidocaine AdvReac Intermediate Hives Verified 06/23/25 06:38 Family History Father Diabetes Myocardial infarction Pancreatic cancer Mother Alcohol abuse Drug abuse Grandfather Diabetes Grandmother Lung cancer Grandmother Heart disease Triple bypass surgery Surgical History History of urethral stent (~2018) Hx laparoscopic cholecystectomy (~2005) H/O: (~2005) Social History Smoking Status: Never smoker alcohol intake: never substance use type: does not use caffeine: Yes Type: coffee what type of physical activity do you participate in: walking frequency: daily seatbelt use: always do you feel safe at home: Yes Vital Signs Vital Signs Vital Signs: 06/23/25 06:40 06/23/25 06:40 Temperature 97.8 F Temperature Source Temporal Pulse Rate 73 Respiratory Rate 18 Respiratory Pattern Normal Blood Pressure 112/70 Blood Pressure Mean 84 Blood Pressure Source Monitor Blood Pressure Position Semi-Fowlers Blood Pressure Location Right Arm Pulse Ox 98 Oxygen Delivery Method Room Air Weight Weight: 277 lb 12.519 oz Body Mass Index (BMI) 43.4 Results Lab / Micro Data Labs: Laboratory Results - last 24 hr 06/23/25 06:30: Urine Test Negative 06/23/25 0714 <Electronically signed by Brett Quiroga MD> Cosigner Signature (if applicable): CC: Dr. Brett Quiroga MD; Dr. Ivette Grimes MD~ Signed [facility] Work Phone: 1(802) 778-430808-20-2025 Consult note [facility] Medical Records Department [address] [place] [place] [address] Anesthesia Postop Eval I 06/23/25 0857 MR#: [id number] Acct: [id number] Name: TORI GRAY Rep #:[id number] : 1980 45 From: Ankur ROJO PCP: Dr. 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 Ivette Grimes MD Status:REG S DC Discharge Instructions Diet Discharge Diet: No restrictions Activity May shower in (days): 1 Ice area for (Minutes): 10 Lifting Restrictions: no lifting over 1 pound Additional Activity Instructions:: pendulums 4x/day, ok for hand wrist elbow rom, ok to take breaksfrom sling. Dressing / Incision Call your doctor if your incision/area has: Continuous Slow Oozing, Sudden Increased Bleeding, Increased Pain/ Swelling, Increased Redness, Foul Smelling Discharge and Swelling at the incision site Call your doctor if you observe: Fever of 101 or Higher, Coldness, Increased Pain and Numbness or Tingling Change Dressing in: leave in place till F/U Cleanse incision/area with: Do not get Incision Wet Additional Dressing/Incision Instructions:: ok to change dressing if wet or you want. keep incisions covered. leave tapes on (steri strips) Follow Up Care Please Follow Up With: Brett Quiroga MD When: within 2 weeks Test Results: Test results from this visit will be discussed in further detail at your follow- up appointment, if applicable. Discharge Plan Admission Attending Provider: Brett Quiroga Primary Care Provider: Ivette Grimes Instructions Patient Instructions: After Shoulder Arthroscopy Print Language: Czech Discharge Orders/Prescriptions Prescriptions: New oxycodone-acetaminophen [Endocet] 5-325 mg tablet 1 tab PO Q4H MDD 6 PRN (Reason: pain) 4 Days Qty: 20 0RF No Action (DME) blood sugar diagnostic [Blood Glucose Test] Strip See Rx Instructions .ROUTE .MEDSUPPLY Qty: 10 Rx Instructions: As directed ipratropium bromide 0.03 % spray,non-aerosol 2 spray INTRANASAL BID PRN (Reason: allergies) Rx Instructions: administer into each nostril fexofenadine [Allergy Relief (fexofenadine)] 180 mg tablet [...] 300 mg capsule 300 mg PO QHS lisinopril 10 mg tablet 10 mg PO DAILY Patient Comments: Take 1 tablet by mouthEonce daily. ondansetron HCl 4 mg tablet 4 mg PO Q8H PRN (Reason: nausea) Patient Comments: TAKE 1 TABLET BY MOUTHEEVERY 8 HOURS NEEDED FOR NAUSEA OR VOMITING fluoxetine 20 mg capsule 20 mg PO QHS Patient Comments: Take 1 capsule by mouthConce daily. albuterol sulfate 90 mcg/actuation HFA aerosol inhaler 2 puff INHALATION Q4H PRN (Reason: shortness of breath or wheezing) tizanidine 4 mg tablet 4 mg PO Q8H PRN (Reason: Muscle Spasm) Nurtec ODT 75 mg tablet,disintegrating 75 mg PO DAILY PRN (Reason: migraine headache) Ozempic 0.25 mg or 0.5 mg (2 mg/3 mL) pen injector 0.5 mg subcut QWEEK Other Ambulatory Orders: 12 Lead EKG (Routine) Timeframe: 20250610 Location: None Selected Ordered By: Dr. Woody Choudhary Referrals / Follow Up: Brett Quiroga MD [Med Staff - Active Staff] - Ivette Grimes MD [Primary Care Provider] - Disposition Disposition (needs filled in before D/C Order can be placed): Home, Self Care 06/23/25 0839Brett Quiroga MD CC: Dr. Ivette Grimes MD ~ Signed [facility]08-20-2025 Procedure note [facility] Medical Records Department [address] [place] [address] Operative Report 06/23/25830 MR#: [id number] Acct: [id number] Name: TORI GRAY Rep #:[id number] : 1980 45 From: Brett Quiroga MD PCP: Dr. Ivette Grimes MD Status:REG S DC Location: [facility] 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 creative engagement director: Yes Energy Control Officer: jamila Tasks completed by appeals assistant: Retracting Additional social service assistant?: No Type of Anesthesia: Block,Regional and General RN Documented Start/Stop Times: Operation Date: 06/23/25 07:30 Case Time Into Pre-Op 06/23/25 06:21 Out of Pre-Op 06/23/25 07:40 Anesthesia Start 06/23/25 07:41 Into Room 06/23/25 07:41 Procedure Start 06/23/25 08:09 Procedure Start Time: 08:09 Procedure Stop Time: 08:32 Select all DRAINS/GRAFTS/IMPLANTS that apply: None Estimated Blood Loss: 20 Specimen collected: No Description of surgery: Patient brought to the operating room theater. Placed supine on the table. General anesthesia induced. 3 g of IV Ancef administered prior to the start of the case. Patient transferred left side up lateral decubitus beanbag positioner. Axillary roll placed. SCDs on the legs. All bony prominences padded. Upper extremity prepped and draped in the usual sterile fashion with chlorhexidine- based prep solution allowing over 3 minutes drying time prior to draping. 10 pounds of inline traction with the arm in 40 degrees of abduction was used. Preoperative timeout performed to confirm the site patient and the surgery. Began by inserting the arthroscope into the intra-articular portion of the shoulder. Use spinal needle inside out localization to perform an anterior portal through the rotator interval. Did a full diagnostic arthroscopy. Cartilage on the humeral head and the glenoid was normal. LHB normal, stable a nchor. Labrum normal. The subscapularis was normal. Undersurface cuff normal. No fraying of tears. No loose body. I then placed the arthroscope into the subacromial space and used 1 accessory lateral portals. Did a complete bursectomy for moderate amount of mostly inflammatory bursitis. Downsloping of AL acromion. Used high speed kasey to flatten this by 4mm. Again probed the rotator cuff, no tears or fraying. Arthroscopy pictures taken and saved onto the system throughout the case. woundsthoroughly irrigated. Meticulous hemostasis achieved. Portal sites cleaned with wet dry dressing followed by closure ofthe portals with 3-0 Monocryl sutures. Steri-Strips Adaptic 4 x 4 gauze ABD dressing with cloth tape and an abduction pillow sling was then placed. Patient woken up from general anesthetic transferred off the operating room table and taken to postanesthetic care unit in stable condition. All sponge needle instrument counts were correct. Plan to the patient discharged home according to day surgery criteria. CPT 30209, 00354 Surgical Findings: As above Complications Complications: No Admit VTE Documentation VTE Present on Admission: No VTE Mechan Device Prophylaxis: SCD's VTE Pharm Prophylaxis ordered?: No Reason prophylaxis not ordered: Treatment Not Indicated 06/23/25 0836 Cosigner Signature (if applicable): CC: Dr. Brett Quiroga MD; Dr. Ivette Grimes MD~ Signed [facility]08-20-2025 History and physical note [facility] Medical Records Department [address] [place] [address] History & Physical Exam 06/23/25 0712 MR#: [id number] Acct: [id number] Name: TORI GRAY Rep #:[id number] : 1980 45 From: Brett Quiroga MD PCP: Dr. Ivette Grimes MD Status:REG S DC Location: [place] [address] HPI - General HPI Narrative TORI GRAY, is a 45 F who presents for left shoulder arthroscopy, subacromial decompression, debridement. no change to h and p. ok to proceed. rab, post op instructions, narcotic counselling. possible licodaine allergy, butafter discussion with anesthesia, the patient and the anesthesia provider have decided to proceed with a block. left shoulder marked. ok to proceed. MR#: [id number] Acct: [id number] Name: TORI GRAY Rep #: [id number] : 1980 Provider: Dr. Brett Quiroga MD Age/Sex: 44/F [place] [facility] Status: Signed Intake Vital Signs 03/22/2509:08 05/06/2510:04 Height 5 ft 7 in 5 ft 7 in Weight: 275 lb BMI 43.0 Intake Visit Reasons: LEFT SHOULDER Chief Complaint: Left shoulder MRI review Accompanied by: Self Is patient in pain?: Yes Pain scale (1-10): 7 Allergies Corticosteroids (Glucocorticoids) (steroids) Allergy (Verified 05/06/25 10:08) Hiveslidocaine Adverse Reaction (Intermediate, Verified 05/06/25 10:08) Hives Medications ?Medication ?Instructions ?Recorded ?Confirmed ?Type blood sugar diagnostic (Blood #10 ea 04/26/20 05/06/25 History Glucose Test strips) ipratropium bromide 21 mcg (0.03 2 spray intranasal BID allergies 0 01/26 History %) nasal spray albuterol sulfate 90 mcg/actuation 2 puff inhalation Q4H PRN 08/10/2205/06 History aerosol inhaler shortness of breath or wheezing fexofenadine 180 mg tablet 180 mg PO DAILY allergies 08/10/2205/06 History (Allergy Relief (fexofenadine)) levonorgestrel 17.5 mcg/24 hr (up 1 device intrauterine ONCE 2 05/06/25 History to 5 yrs) 19.5mg intrauterine control device tizanidine 4 mg tablet 4 mg PO Q8H PRN Muscle Spasm 08/10/22 History omeprazole 20 mg capsule,delayed 20 mg PO DAILY PRN gerd 08/16/22 5 History release topiramate 100 mg tablet 100 mg PO BID seizures 08/16/22 05/06/25 History fluoxetine 20 mg capsule 20 mg PO DAILY mental health 12/28/22 History gabapentin 300 mg capsule 300 mg PO BID nerve pain 12/28/22 History lisinopril 10 mg tablet 10 mg PO DAILY blood pressure 12/28/22 0 05/06/25 History ondansetron HCl 4 mg tablet 4 mg PO Q8H PRN nausea 12/28/22 05/06/25 History rimegepant 75 mg disintegrating 75 mg PO DAILY PRN migraine 02/04/2401/26 History tablet (Nurtec ODT) headache semaglutide 0.25 mg or 0.5 mg (2 0.5 mg subcut QWEEK 10/16/24 05/06/25 Hi story mg/3 mL) subcutaneous pen injector (Ozempic) potassium chloride 20 mEq oral 20 meq PO BID 7 days #30 ea 11/11/2401/26 Rx packet Have you fallen in the [...] Family History Father Diabetes Myocardial infarction Pancreatic cancerMother Alcohol abuse Drug abuseGrandfather DiabetesGrandmother Lung cancerGrandmother Heart disease Triple bypass surgery Social History [...] and the decisions made by me, Dr. Kassie MD 05/06/25 9557. Part of today?s visit was documented by [ ], acting as scribe. TORI GRAY is a 44 year old F here today for follow-up left shoulder MRI. [facility]. getting worse. cant do injections. seems to be getting worse, with ADLs as well. worse with lifting. lat and anterior pain. 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 Supplemental Info [facility] Imaging Services [address] [place] [address] Upper Ext Joint Only(Routine) MR#: [id number] Acct: [id number] Name: TORI GRAY Rep #: [id number] : 1980 F 44 From: Salazar Tyson MD PCP: Dr. Ivette Grimes MD Status: REG CLI Study: Upper Ext Joint Only(Routine) Date of Exam: 04/17/25 Exam# [id number] Ordering Dr: Brett Quiroga MD PROCEDURE: UPPER [...] is present within the biceps tendon groove. T he biceps tendon anchors appear intact. Effusion: There [...] subdeltoid bursa, with bursitis. Reading Location: [facility] Olson independently reviewed the imaging. Concur with radiologist report. Coding Level of Care Code Off vis,est,level 4 Diagnoses Left shoulder pain M25.512 Assessment and Plan Assessment and Plan (1) Left shoulder pain: Status: Inactive Plan: TORI GRAY is a 44 year old F here today for left shoulder pain. MRI shows tendinopathy of the rotator cuff tendonopathy as well as mild bursitis no tears or cysts. There is mild distal supraspinatus tendinopathy without full-thickness tear or retraction. There is a trace joint effusion. There is a small amount of fluid in the subacromial subdeltoid bursa, with bursitis. We went over the nonoperative and surgical option for this. In terms of surgery this would be a left shoulder arthroscopy, subacromial decompression, debridement. If I saw anything else that was not on the MRI I would address that as well such as a rotator cuff tear or SLAP tear. Patient understands wished to go ahead with surgery they have obstructive sleep apnea and diabetescan increase the risk of perioperative complications like infection or possibly the need to stay overnight to monitor breathing I advised the patient to bring her CPAP machine. The patient understands no further questions or concerns on the consent form for surgery. Patient counselled on non-operative and operative means of treating shoulder pain. Conservative options include but not limited to: 1. Rest and Activity Modification: Giving your shoulder time to heal by avoiding movements that cause pain can help. This may involve limiting overhead activities or heavy lifting. 2. Physical Therapy: A physical therapist can guide you through exercises that strengthen the muscles around the shoulder, improve flexibility, and reduce strain on the rotator cuff tendon. 3. Ice and Heat Therapy: Applying ice to the shoulder can help reduce swelling and pain, especially after activity. Heat can be helpful to relax tense muscles and improve blood flow before exercises. 4. Anti-Inflammatory Medications: Twuo-dos-ayckyzj medications like ibuprofen or naproxen can help reduce pain and inflammation in the tendon. 5. Corticosteroid Injections: If the pain is more severe, a steroid injection can reduce inflammation in the shoulder and provide relief for a longer period. 6. Platelet-Rich Plasma (PRP) Injection: This treatment involves using your own blood to promote healing in the tendon. The plasma is rich in growth factors that can encourage tissue repair. 7. TENS (Transcutaneous Electrical Nerve Stimulation): This therapy uses a small electrical current to help manage pain and promote healing by stimulating nerves. Plan Details Goals & Barriers: Goals Decrease spasm Improve intersegmental motion Decrease pain Decrease HAs Barriers Disc bulge Clinical Quality Measures Falls Risk Screening/Assistive Devices Have you fallen in the past year?: No Ortho Exam General General: Yes no acute distress Neurologic: Yes alert and Yes oriented x3 Psychologic: Yes reasonable and appropriate Left Shoulder Skin/Wound: Yes CDI, No ecchymosis, No erythema and No swelling Testing: Yes Hawkin's, Yes Neer's, Yes Speed's, Yes TTP Biceps, Yes TTP AC Joint, Yes AROM-Forward Elevation 0-180, Yes AROM-External Rotation at side 0- 60, Yes empty can, Noscapular winging and Yes belly press normal SHOULDER: normal motor and sens to axillary N, MRU and AIN/PIN. Hand warm well perfused normal radial pulse. strength FE 4+, ER 5/5. [facility] Medical History Diabetes Fatty liver Gastric reflux [...] intervertebral disc of lumbosacral region Home Medications ?Medication ?Instructions ?Recorded ?Last Taken ?Type blood sugar diagnostic (Blood #10 ea 04/26/20 Unknown History Glucose Test strips) ipratropium bromide 21 mcg (0.03 2 spray intranasal BI D PRN 08/23/20 08/03/23 History %) nasal spray allergies albuterol sulfate 90 mcg/actuation 2 puff inhalation Q 4H PRN 08/10/22 08/03/23 History aerosol inhaler shortness of breath or wheez ing fexofenadine 180 mg tablet 180 mg PO DAILY allergies 1 06/22/25 History (Allergy Relief (fexofenadine)) levonorgestrel 17.5 mcg/24 hr (up 1 device intrauterin e ONCE 08/10/22 06/23/25 History to 5 yrs) 19.5mg intrauterine control device tizanidine 4 mg tablet 4 mg PO Q8H PRN Muscle Spasm 08/10/22 06/20/25 History omeprazole 20 mg capsule,delayed 20 mg PO DAILY PRN ge rd 08/16/22 06/22/25 History release topiramate 100 mg tablet 100 mg PO BID seizures 08/1606/23/25 History fluoxetine 20 mg capsule 20 mg PO QHS mental health 0 12/28/22 06/22/25 History gabapentin 300 mg capsule 300 mg PO QHS nerve pain 06/22/25 History lisinopril 10 mg tablet 10 mg PO DAILY blood pressur e 12/28/22 06/22/25 History ondansetron HCl 4 mg tablet 4 mg PO Q8H PRN nausea Unknown History rimegepant 75 mg disintegrating 75 mg PO DAILY PRN rosalina ray 02/04/24 11/10/24 History tablet (Nurtec ODT) headache semaglutide 0.25 mg or 0.5 mg (2 0.5 mg subcut QWEEK 1 12/17/23 06/10/25 History mg/3 mL) subcutaneous pen injector (Ozempic) Allergy/AdvReac Type Severity Reaction Status Date / Time Corticosteroids Allergy Hives Verified 06/23/25 06:38 (Glucocorticoids) (steroids) lidocaine AdvReac Intermediate Hives Verified 06/23/25 06:38 Family History Father Diabetes Myocardial infarction Pancreatic cancer Mother Alcohol abuse Drug abuse Grandfather Diabetes Grandmother Lung cancer Grandmother Heart disease Triple bypass surgery Surgical History History of urethral stent (~2018) Hx laparoscopic cholecystectomy (~2005) H/O: (~2005) Social History Smoking Status: Never smoker alcohol intake: never substance use type: does not use caffeine: Yes Type: coffee what type of physical activity do you participate in: walking frequency: daily seatbelt use: always do you feel safe at home: Yes Vital Signs Vital Signs Vital Signs: 06/23/25 06:40 06/23/25 06:40 Temperature 97.8 F Temperature Source Temporal Pulse Rate 73 Respiratory Rate 18 Respiratory Pattern Normal Blood Pressure 112/70 Blood Pressure Mean 84 Blood Pressure Source Monitor Blood Pressure Position Semi-Fowlers Blood Pressure Location Right Arm Pulse Ox 98 Oxygen Delivery Method Room Air Weight Weight: 277 lb 12.519 oz Body Mass Index (BMI) 43.4 Results Lab / Micro Data Labs: Laboratory Results - last 24 hr 06/23/25 06:30: Urine Test Negative 06/23/25713 Cosigner Signature (if applicable): CC: Dr. Brett Quiroga MD; Dr. Ivette Grimes MD~ Signed [facility]08-20-2025 [facility] Medical Records Department [address] [place] [address] History Physical Exam 06/23/2512 MR#: [id number] Acct: [id number] Name: TORI GRAY Rep #: [id number] : 1980 45 From: Brett Quiroga MD PCP: Dr. Ivette Grimes MD Status:[facility] Location: [place] [address]-1 HPI - General HPI Narrative TORI GRAY, is a 45 F who presents for left shoulder arthroscopy, subacromial decompression, debridement. no change to h and p. ok to proceed. rab, post op instructions, narcotic counselling. possible licodaine allergy, but after discussion with anesthesia, the patient and the anesthesia provider have decided to proceed with a block. left shoulder marked. ok to proceed. MR#: [id number] Acct: [id number] Name: TORI GRAY Rep #: [id number] : 1980 Provider: Dr. Brett Quiroga MD Age/Sex: 44/F [place] [facility] Status: Signed Intake Vital Signs 03/22/2509:08 05/06/2510:04 Height 5 ft 7 in 5 ft 7 in Weight: 275 lb BMI 43.0 Intake Visit Reasons: LEFT SHOULDER Chief Complaint: Left shoulder MRI review Accompanied by: Self Is patient in pain?: Yes Pain scale (1-10): 7 Allergies Corticosteroids (Glucocorticoids) (steroids) Allergy (Verified 05/06/25 10:08) Hiveslidocaine Adverse Reaction (Intermediate, Verified 05/06/25 10:08) Hives Medications ???Medication ???Instructions ???Recorded ???Confirmed ???Type blood sugar diagnostic (Blood #10 ea 04/26/20 05/06/25 History Glucose Test strips) ipratropium bromide 21 mcg (0.03 2 spray intranasal BID allergies 08/23/20 05/06/25 History %) nasal spray albuterol sulfate 90 mcg/actuation 2 puff inhalation Q4H PRN 08/10/22 05/06/25 Histor y aerosol inhaler shortness of breath or wheezing fexofenadine 180 mg tablet 180 mg PO DAILY allergies 08/10/22 05/06/25 Histor y (Allergy Relief (fexofenadine)) levonorgestrel 17.5 mcg/24 hr (up 1 device intrauterine ONCE 08/10/22 05/06/25 History to 5 yrs) 19.5mg intrauterine control device tizanidine 4 mg tablet 4 mg PO Q8H PRN Muscle Spasm 08/10/22 05/06/25 His tory omeprazole 20 mg capsule,delayed 20 mg PO DAILY PRN gerd 08/16/22 05/06/25 History release topiramate 100 mg tablet 100 mg PO BID seizures 08/16/22 05/06/25 History fluoxetine 20 mg capsule 20 mg PO DAILY mental health 12/28/22 05/06/25 His tory gabapentin 300 mg capsule 300 mg PO BID nerve pain 12/28/22 05/06/25 History lisinopril 10 mg tablet 10 mg PO DAILY blood pressure 12/28/22 05/06/25 Hi story ondansetron HCl 4 mg tablet 4 mg PO Q8H PRN nausea 12/28/22 05/06/25 History rimegepant 75 mg disintegrating 75 mg PO DAILY PRN migraine 02/04/24 05/06/25 Hist ory tablet (Nurtec ODT) headache semaglutide 0.25 mg or 0.5 mg (2 0.5 mg subcut QWEEK 12/13/24 07/03/25 History mg/3 mL) subcutaneous pen injector (Ozempic) potassium chloride 20 mEq oral 20 meq PO BID 7 days #30 ea 11/11/24 05/06/25 Rx packet Have you fallen in the past year?: No [facility] Medical History Abnormal ECG Prolonged Q-T interval [...] ( 2005) H/O: ( 2005) Family History (Rev (more content not included)...[facility] 06-17-2025 Progress [facility] [address] [place] [address] OFFICE VISIT Date of Service: 06/17/25 MR#: [id number] Acct: [id number] Name: TORI GRAY Rep #: [id number] : 1980 Provider: CONCEPCIÓN Rehman Age/Sex: 45/F [place] [facility] Status: Signed Intake Vital Signs [...] than right (piriformis,trap) and Yes misalignment T1, T2,T3, T4, L3, L4, L5 and RIL Sacroiliac [...] CPT Codes Procedures - Manipulation: 3-4 regions (80891) Procedures - Traction, Mechanical: Yes (03420) 06/17/25 1005 .C.> Date _ Bibiana Rehman D.C. Cosigncatherine Signature: Date (if applicable) CC: ~ [facility]08-14-2025 Progress note Author Bibiana Rehman [facility] Note Date/Time June 17, 2025 10 :05am [facility] [address] [place] [address] OFFICE VISIT Date of Service: 06/17/25 MR#: [id number] Acct: [id number] Name: ISAACTORI KELLY Rep #: [id number] : 1980 Provider: CONCEPCIÓN Rehman Age/Sex: 45/F Location[place] [facility] Status: Signed Intake Vital Signs 05/06/25 10:04 [...] CPT Codes Procedures - Manipulation: 3-4 regions (15681) Procedures - Traction, Mechanical: Yes (45868) 06/17/25 1005 <Electronically signed by Bibiana Aguilar> Date _ Bibiana Rehman D.C. Cosigner Signature: Date (if applicable) CC: ~ [facility] [employer] [facility] [employer] Work Phone: [phone] Telephone encounter Note* Telephone Encounter - Juliana Murphy MA - 06/10/2025 2:17 PM EDT LDL Direct scanned to chart [facility]08-07-2025 Miscellaneous Notes* Telephone Encounter - Juliana Murphy MA - 06/10/2025 2:17 PM EDT LDL Direct scanned to chart * Telephone Encounter - Nirmala Storey LPN - 06/09/2025 12:53 PM EDT MyChart message sent to the patient. * Telephone Encounter - Ivette Grimes MD - 06/09/2025 10:48 AM EDT Lets increase the ozempic to 2 mg a day. Call sugars in two weeks. Watch the diet. * Telephone Encounter - Nirmala Storey LPN - 06/09/2025 10:20 AM EDT HgbA1C from [facility] 7.4 [facility] Hospital Discharge instructionsAmbulatory Orders* 12 Lead EKG [[facility]] Time Frame: 06/10/25, Location: None Selected [facility] Work Phone: [phone]) 794-931108-06-2025 Telephone encounter Note* Telephone Encounter - Nirmala Storey LPN - 06/09/2025 12:53 PM EDT Plan B [employer] message sent to the patient. [facility]08-06-2025 Telephone encounter Note* Telephone Encounter - Ivette Grimes MD - 06/09/2025 10:48 AM EDT Lets increase the ozempic to 2 mg a day. Call sugars in two weeks. Watch the diet. [facility]08-06-2025 Telephone encounter Note* Telephone Encounter - Nirmala Storey LPN - 06/09/2025 10:20 AM EDT HgbA1C from [facility] 7.4 [facility]08-04-2025 NoteHNO ID: [id number] Author: IVETTE GRIMES MD Service: ? Author [...] for June [address] Quiro[address] at [facility]. - Follow-up appointment with Dr. Camacho for [...] 1 tablet by mouth once daily. Ipratropium [place] (ATROVENT) 21 mcg (0.03 %) nasal spray [...] 1 Each by INTRAUTERINE route as directed. [id number]-Ho-Acp-Fe-FA tab Take 1 tablet by mouth once [...] Age of Onset Alcohol/Drug Mother Heart Father ND Cancer Father PANCREATIC CANCER Diabetes Father Coronary Artery Disease Father Anxiety disorder Sister Depression Sister Depression Brother Cancer Maternal Grandmother LUNG CANCER Diabetes Maternal Grandfather Heart Paternal Grandmother TRIPLE BYPASS SURGERY S (more content not included)...[facility]08-04-2025 History of Present illness Narrative* Ivette Grimes [...] for June [address] Quiro[address] at [facility]. - Follow-up appointment with Dr. Camacho for [...] 1 tablet by mouth once daily. Ipratropium [place] (ATROVENT) 21 mcg (0.03 %) nasal spray [...] 1 Each by INTRAUTERINE route as directed. Mxwhksef-Lx-Fwh-Fe-FA tab Take 1 tablet by mouth once [...] Age of Onset Alcohol/Drug Mother Heart Father ND Cancer Father PANCREATIC CANCER Diabetes Father Coronary [...] for screening mammogram to be sent to [facility]. (See patient after visit summary for additional instructions to patient) Ivette Grimes MD Recording using [employer] software for draft documentation of the visit was discussed with the patient/authorized fraud representative; all questions welcomed and answered. Patient/authorized fraud representative agreed to proceed documented in this encounterAdena [facility] Center08-04-2025 Instructions* Patient Instructions* Ivette [...] with Dr. Quiroga on June 23 at [facility]. - Keep your neurology appointment on [...] any new concerns arise. documented in this encounterAdena Regional Medical Center06-04-2025 Telephone encounter Note * Telephone Encounter - Ivette Grimes MD - 04/07/2025 3:34 PM EDT Requests refill. [facility]06-04-2025 Miscellaneous Notes* Telephone Encounter - Ivette Grimes MD - 04/07/2025 3:34 PM EDT Requests refill. documented in this encounterAdena Regional Medical Center05-29-2025 Telephone encounter Note * Telephone Encounter - Nakia Caraballo RN - 04/01/2025 12:45 PM EDT Botox approved until 11/03/25. Patient and scheduling made aware. She is a patient of Fatuma's butdue to her being out on maternity leave, patient will need scheduled with another FÉLIX. Saw Amanda on03/09/25. Latonia Caraballo RN, BSN [facility] Work Phone: 1(231) 240-996605-29-2025 Miscellaneous Notes* Telephone Encounter - Nakia Caraballo RN - 04/01/2025 12:45 PM EDT Botox approved until 11/03/25. Patient and scheduling made aware. She is a patient of [facility] butdue to her being out on maternity leave, patient will need scheduled with another FÉLIX. Saw Amanda on03/09/25. TUNDE Hinkle RNN documented in this encounterAdena Regional Medical Center05-16-2025 Telephone encounter Note * Telephone Encounter - Nakia Caraballo RN - 03/19/2025 3:14 PM EDT Botox referral sent to pharmacy as patient would like to restart botox. Last botox 09/03/24. RIZWANA Hinkle RN [facility] Work Phone: 1(657) 465-325505-16-2025 Miscellaneous Notes* Telephone Encounter - Nkaia Caraballo RN - 03/19/2025 3:14 PM EDT Botox referral sent to pharmacy as patient would like to restart botox. Last botox 09/03/24. Latonia Caraballo RN BSN documented in this encounterAdena Regional Medical Center05-09-2025 Radiology Diagnostic study note [facility] Imaging Services [address], [place] [address] Shoulder min 2 Views MR#: [id number] Acct: [id number] Name: TORI GRAY Rep #: [id number] : 1980 F 44 From: Kaushik Newsome MD PCP: Dr. Ivette Grimes MD Status: REG C LI Study:Shoulder min 2 Views Date of Exam: 03/11/25 Exam# [id number] Ordering Dr: Brett Quiroga MD PROCEDURE: SHOULDER [...] Quiroga MD; Dr. 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: Signed [facility]05-06-2025 Evaluation note* Diagnosis Onset Date Resolution Status Admit Date Segmental and somatic dysfunction of cervical region acute [facility] 2024 9:17am Segmental and somatic dysfunction of lumbar region acute March 09, 2025 9:17am Segmental and somatic dysfunction of pelvic region acute March 09, 2025 9:17am Segmental and somatic dysfunction of thoracic region acute [facility] 2024 9:17am Disc displacement, lumbar chronic March 09, 2025 9:17am Left shoulder pain inactive March 222024 8:58am Back pain acute March 22, 2025 9:33am Segmental and somatic dysfunction of cervical region acute [facility] 2024 9:33am Segmental and somatic dysfunction of lumbar region acute March 22, 2025 9:33am Segmental and somatic dysfunction of pelvic region acute March 22, 2025 9:33am Segmental and somatic dysfunction of thoracic region acute [facility] 2024 9:33am Segmental and somatic dysfunction of cervical region acute J une 2024 10:22am Segmental and somatic dysfunction of lumbar region acute Apr 10:22am Segmental and somatic dysfunction of pelvic [...] somatic dysfunction of pelvic region acute Apr 9:49am Segmental and somatic dysfunction of thoracic [...] and somatic dysfunction of lumbar region acute Jun ust 2024 9:27am Segmental and somatic dysfunction of pelvic region acute Jun ust 2024 9:27am Segmental and somatic dysfunction of thoracic region acute A ugust 2024 9:27am Disc displacement, lumbar chronic June 17, 2025 9:27am [facility] Work Phone: 1(909) 577-177405-06-2025 Evaluation note* Diagnosis Onset Date Resolution Status Admit Date Segmental and somatic dysfunction of cervical region acute [facility] 2024 9:17am Segmental and somatic dysfunction of lumbar region acute March 09, 2025 9:17am Segmental and somatic dysfunction of pelvic region acute March 09, 2025 9:17am Segmental and somatic dysfunction of thoracic region acute [facility] 2024 9:17am Disc displacement, lumbar chronic March 09, 2025 9:17am Left shoulder pain inactive March 222024 8:58am Back pain acute March 22, 2025 9:33am Segmental and somatic dysfunction of cervical region acute [facility] 2024 9:33am Segmental and somatic dysfunction of lumbar region acute March 22, 2025 9:33am Segmental and somatic dysfunction of pelvic region acute March 22, 2025 9:33am Segmental and somatic dysfunction of thoracic region acute [facility] 2024 9:33am Segmental and somatic dysfunction of cervical region acute J une 2024 10:22am Segmental and somatic dysfunction of lumbar region acute [facility] 2024 10:22am Segmental and somatic dysfunction of pelvic region acute Apr 10:22am Segmental and somatic dysfunction of thoracic [...] displacement, lumbar chronic June 17, 2025 9:27am Impingement of left shoulder acute June 23, 2025 6:20am [facility] Work Phone: 1(348) 436-104405-06-2025 Evaluation note* Diagnosis Onset Date Resolution Status Admit Date Segmental and somatic dysfunction of cervical region acute [facility] 2024 9:17am Segmental and somatic dysfunction of lumbar region acute March 09, 2025 9:17am Segmental and somatic dysfunction of pelvic region acute March 09, 2025 9:17am Segmental and somatic dysfunction of thoracic region acute [facility] 2024 9:17am Disc displacement, lumbar [...] displacement, lumbar chronic June 17, 2025 9:27am Impingement of left shoulder acute June 23, 2025 6:20am Impingement of left shoulder acute June 25, 2025 9:12am [facility] Work Phone: 1(231) 108-688005-06-2025 History of Present illness Narrative* Amanda Arteaga PA-C - 03/09/2025 7:25 AM EDT Images from the original note were not included. [facility] General Neurology New Patient Evaluation This visit [...] visit. Either the patient or their legal fraud representative has been informed of the risks and benefits of -- and alternatives to -- treatment through a remote evaluation andconsents to proceed with the evaluation remotely. Confirmed verbally that the patient currently located in the [facility].Yes Confirmed verbally that the patient consents to being seen virtually today.Yes Confirmed verbally that the patient consents to being seen by a physician social service assistant.Yes CHIEF COMPLAINT: Botox for migraines Tori [...] Gets botox for migraines with Karen Dowell STEP DOWN SPECIALIST. Patient sustained fall and head injury 11/24/22 [...] 1 tablet by mouth once daily. Ipratropium Olney (ATROVENT) 21 mcg (0.03 %) nasal spray [...] 1 Each by INTRAUTERINE route as directed. Valentine-3 Fatty Acids (FISH OIL) 500 mg cap Take 1 capsule by mouth once daily. blood sugar diagnostic (BLOOD GLUCOSE TEST) test strip Test blood sugar(s) 1 times daily. Dx: Type 2 DM - Controlled E11.9 Insulin: Yes Lancets lancets Test blood sugar(s) 1 times daily. Dx: Type 2 DM - Controlled E11.9 Insulin: No Bgxpkcca-Jf-Ehp-Fe-FA tab Take 1 tablet by mouth once [...] which included preparing to see the patient, [id number] patient care, completing clinical documentation, obtaining and/or [...] (Sleep study not recommended) documented in this encounterAdena Regional Medical Center05-06-2025 NoteHNO ID: [id number] Author: AMANDA ARTEAGA PA-C Service: ? Author Type: Physician Parts Cleaner Type: Progress Notes Filed: 03/10/2025 07:59 Note Text: [facility] for General Neurology New Patient [...] visit. Either the patient or their legal fraud representative has been informed of the risks and benefits of -- and alternatives to -- treatment through a remote evaluation and consents to proceed with the evaluation remotely. Confirmed verbally that the patient currently located in the [facility].Yes Confirmed verbally that the patient consents to being seen virtually today.Yes Confirmed verbally that the patient consents to being seen by a physician social service assistant.Yes CHIEF COMPLAINT: Botox for migraines Tori [...] review Seen by General Neurology: Seen by aFtuma Beckford:03/05/2023 HISTORY OF PRESENT ILLNESS: Tori Gray [...] not helping as rescue at this time -Mobmayra 15 a (more content not included)...[facility]05-01-2025 Telephone encounter Note* Telephone Encounter - Beata Pitts LPN - 03/04/2025 2:41 PM EDT Tried contacting patient to confirm that she just wants to discuss botox rather than get injectionsfor her upcoming appt as it's a virtual visit, per [place]. Beata Pitts LPN March 04, 2025 2:42 PM [facility]05-01-2025 Miscellaneous Notes* Telephone Encounter - Beata Pitts LPN - 03/04/2025 2:41 PM EDT Tried contacting patient to confirm that she just wants to discuss botox rather than get injectionsfor her upcoming appt as it's a virtual visit, per [place]. Beata Pitts LPN March 04, 2025 2:42 PM documented in this encounterAdena Regional Medical Center04-29-2025 History of Present illness [...] visit. Either the patient or their legal fraud representative has been informed of the risks [...] like me to send over referral at [facility]. They specialize in shoulders. Seen at optometry at [facility] for dilated vision check on February 04. [...] 1 tablet by mouth once daily. Ipratropium Olney (ATROVENT) 21 mcg (0.03 %) nasal spray [...] 1 Each by INTRAUTERINE route as directed. Valentine-3 Fatty Acids (FISH OIL) 500 mg cap Take 1 capsule by mouth once daily. blood sugar diagnostic (BLOOD GLUCOSE TEST) test strip Test blood sugar(s) 1 times daily. Dx: Type 2 DM - Controlled E11.9 Insulin: Yes Lancets lancets Test blood sugar(s) 1 times daily. Dx: Type 2 DM - Controlled E11.9 Insulin: No Psjsmtzc-Ta-Bpq-Fe-FA tab Take 1 tablet by mouth once [...] Age of Onset Alcohol/Drug Mother Heart Father ND Cancer Father PANCREATIC CANCER Diabetes Father Coronary [...] ORTHOPAEDICS Ivette Grimes MD documented in this encounterAdena Regional Medical Center04-29-2025 NoteHNO ID: [id number] Author: IVETTE GRIMES MD Service: ? Author [...] visit. Either the patient or their legal fraud representative has been informed of the risks [...] like me to send over referral at [facility]. They specialize in shoulders. Seen at optometry at [facility] for dilated vision check on February 04. [...] 1 tablet by mouth once daily. Ipratropium Olney (ATROVENT) 21 mcg (0.03 %) nasal spray [...] 1 Each by INTRAUTERINE route as directed. Valentine-3 Fatty Acids (FISH OIL) 500 mg cap Take 1 capsule by mouth once daily. blood sugar diagnostic (BLOOD GLUCOSE TEST) test strip Test blood sugar(s) 1 times daily. Dx: Type 2 DM - Controlled E11.9 Insulin: Yes Lancets lancets Test blood sugar(s) 1 times daily. Dx: Type 2 DM - Controlled E11.9 Insulin: No Zunamfhz-Oq-Ola-Fe-FA tab Take 1 tablet by mouth once [...] Age of Onset Alcohol/Drug Mother Heart Father ND Cancer Father PANCREATIC CANCER Diabetes Father Coronary Artery Disease Father Anxiety disorder Sister Depression Sister Depression Brother Cancer Maternal Grandmother LUNG CANCER Diabetes Maternal Grandfather Heart Paternal Grandmother TRIPLE BYPASS SURGERY Social History Tobacco Use Smoking status: Never Smokeless tobacco: Never Vaping Use Vaping status: Never Used Substance Use Topics Alcohol use (more content not included)...[facility]04-03-2025 Evaluation note* Diagnosis Onset Date Resolution Status [...] displacement, lumbar chronic March 09, 2025 9:17am [facility] Work Phone: 1(143) 215-714404-03-2025 Evaluation note* Diagnosis Onset Date Resolution Status [...] Left shoulder pain inactive March 222024 8:58am [facility] Work Phone: 1(383) 429-726404-03-2025 Evaluation note* Diagnosis Onset Date Resolution Status [...] and somatic dysfunction of cervical region acute [facility] 2024 9:33am Segmental and somatic dysfunction of lumbar region acute March 22, 2025 9:33am Segmental and somatic dysfunction of pelvic region acute March 22, 2025 9:33am Segmental and somatic dysfunction of thoracic region acute [facility] 2024 9:33am [facility] Work Phone: 1([phone]) 813-191204-03-2025 Evaluation note* Diagnosis Onset Date Resolution Status [...] and somatic dysfunction of cervical region acute [facility] 2024 9:17am Segmental and somatic dysfunction of lumbar region acute March 09, 2025 9:17am Segmental and somatic dysfunction of pelvic region acute March 09, 2025 9:17am Segmental and somatic dysfunction of thoracic region acute [facility] 2024 9:17am Disc displacement, lumbar chronic March 09, 2025 9:17am Left shoulder pain inactive March 222024 8:58am Back pain acute March 22, 2025 9:33am Segmental and somatic dysfunction of cervical region acute [facility] 2024 9:33am Segmental and somatic dysfunction of lumbar region acute March 22, 2025 9:33am Segmental and somatic dysfunction of pelvic region acute March 22, 2025 9:33am Segmental and somatic dysfunction of thoracic region acute [facility] 2024 9:33am Segmental and somatic dysfunction of cervical region acute J une 2024 10:22am Segmental and somatic dysfunction of lumbar region acute Apr 10:22am Segmental and somatic dysfunction of pelvic region acute Apr 10:22am Segmental and somatic dysfunction of thoracic region acute J une 2024 10:22am Disc displacement, lumbar chronic April 05, 2025 10:22am Radiculopathy of lumbosacral region suspected April 05, 2025 1 0:22am [facility] Work Phone: 1([phone]) 120-989604-03-2025 Evaluation note* Diagnosis Onset Date Resolution Status [...] and somatic dysfunction of thoracic region acute [facility] 2024 9:17am Disc displacement, lumbar chronic March 09, 2025 9:17am Left shoulder pain inactive March 222024 8:58am Back pain acute March 22, 2025 9:33am Segmental and somatic dysfunction of cervical region acute [facility] 2024 9:33am Segmental and somatic dysfunction of lumbar region acute March 22, 2025 9:33am Segmental and somatic dysfunction of pelvic region acute March 22, 2025 9:33am Segmental and somatic dysfunction of thoracic region acute [facility] 2024 9:33am Segmental and somatic [...] displacement, lumbar chronic April 21, 2025 9:49am [facility] Work Phone: 1(519) 117-140504-03-2025 Evaluation note* Diagnosis Onset Date Resolution Status [...] and somatic dysfunction of cervical region acute [facility] 2024 9:17am Segmental and somatic dysfunction of lumbar region acute March 09, 2025 9:17am Segmental and somatic dysfunction of pelvic region acute March 09, 2025 9:17am Segmental and somatic dysfunction of thoracic region acute [facility] 2024 9:17am Disc displacement, lumbar chronic March 09, 2025 9:17am Left shoulder pain inactive March 222024 8:58am Back pain acute March 22, 2025 9:33am Segmental and somatic dysfunction of cervical region acute [facility] 2024 9:33am Segmental and somatic dysfunction of lumbar region acute March 22, 2025 9:33am Segmental and somatic dysfunction of pelvic region acute March 22, 2025 9:33am Segmental and somatic dysfunction of thoracic region acute [facility] 2024 9:33am Segmental and somatic dysfunction of cervical region acute J une 2024 10:22am Segmental and somatic dysfunction of lumbar region acute [facility] 2024 10:22am Segmental and [...] Left shoulder pain inactive May 062024 10:02am [facility] Work Phone: 1([phone]) 981-164604-03-2025 Evaluation note* Diagnosis Onset Date Resolution Status [...] and somatic dysfunction of cervical region acute [facility] 2024 9:17am Segmental and somatic dysfunction of lumbar region acute March 09, 2025 9:17am Segmental and somatic dysfunction of pelvic region acute March 09, 2025 9:17am Segmental and somatic dysfunction of thoracic region acute [facility] 2024 9:17am Disc displacement, lumbar chronic March 09, 2025 9:17am Left shoulder pain inactive March 222024 8:58am Back pain acute March 22, 2025 9:33am Segmental and somatic dysfunction of cervical region acute [facility] 2024 9:33am Segmental and somatic dysfunction of lumbar region acute March 22, 2025 9:33am Segmental and somatic dysfunction of pelvic region acute March 22, 2025 9:33am Segmental and somatic dysfunction of thoracic region acute [facility] 2024 9:33am Segmental and somatic dysfunction of cervical region acute J une 2024 10:22am Segmental and somatic dysfunction of lumbar region acute [facility] 2024 10:22am Segmental and [...] somatic dysfunction of thoracic region acute J 2024 10:30am Disc displacement, lumbar chronic June 01, 2025 10:30am [facility] [employer] Work Phone: 1([phone]) 998-954004-02-2025 Telephone encounter Note* Telephone Encounter - Evon [...] her know when it is ready for picking belt operator. [facility]04-02-2025 Miscellaneous Notes* Telephone Encounter [...] her know when it is ready for picking belt operator. * Telephone Encounter - Mirna Santos MA - 02/01/2025 2:42 PM EDT Faxed form completed to [employer] with A1C and office note Mirna Santos MA * Telephone Encounter - Evon Philippe LPN - 01/29/2025 8:31 AM EDT [employer] RESPONSE. [employer] does not handle this review. Please visit [email or web address] to start a prior authorization or fax information to [phone]. Please include all supporting chart notes. You may contact [facility] at [phone]. WILL FAX PA REQUEST TO NUMBER PROVIDED. [...] needs PA due to dose change). Provider: [employer] [facility] Phone number: [phone] Patient ID number: [id number] Pharmacy Name: [facility] Telephone number: [phone] documented in this encounterAdena Regional Medical Center03-31-2025 Telephone encounter Note * Telephone Encounter - Mirna Santos MA - 02/01/2025 2:42 PM EDT Faxed form completed to [employer] with A1C and office note Mirna Santos MA [facility]03-28-2025 Telephone encounter Note* Telephone Encounter - Evon Philippe LPN - 01/29/2025 8:31 AM EDT [employer] RESPONSE. [employer] does not handle this review. Please visit [email or web address] Information to start a prior authorization or fax information to [phone]. Please include all supporting chart notes. You may contact [employer] at [phone]. WILL FAX PA REQUEST TO NUMBER PROVIDED. Records faxed to for PA. [facility]03-27-2025 Telephone encounter Note* Telephone Encounter - Evon Philippe LPN - 01/28/2025 4:56 PM EDT Unable to complete electronically. Will try on covermymeds [facility]03-27-2025 Telephone encounter Note* Telephone Encounter - Evon Philippe LPN - 01/28/2025 4:55 PM EDT Electronic PA requested. [facility]03-27-2025 Telephone encounter Note* Telephone Encounter - Krystle Barnett RN - 01/28/2025 4:51 PM EDT Prior Authorization Documentation Prior authorization requested for the following medication: Medication: Ozempic 1 mg (all though PA done in Aug 2024 and approved until Aug 2025 this needs PA due to dose change). Provider: [employer] Name: Gumaro Cavazos [facility] Phone number: [phone] Patient ID number: [id number] Pharmacy Name: [facility] Telephone number: [phone] [facility]03-27-2025 Telephone encounter Note* Telephone Encounter - Dennise Robles MA - 01/28/2025 8:45 AM EDT Scan on 01/28/2025 8:29 AM by ProviderSherry PA-C: BMP Scan on 01/28/2025 8:17 AM by ProviderSherry PA-C: HGB A1C [facility]03-27-2025 Miscellaneous Notes* Telephone Encounter - Dennise Robles MA - 01/28/2025 8:45 AM EDT Scan on 01/28/2025 8:29 AM by ProviderSherry PA-C: BMP Scan on 01/28/2025 8:17 AM by Sherry Mccallum PA-C: HGB A1C documented in this encounterAdena Regional Medical Center03-21-2025 NoteHNO ID: [id number] Author: IVETTE GRIMES MD Service: ? Author [...] 1 tablet by mouth once daily. Ipratropium Olney (ATROVENT) 21 mcg (0.03 %) nasal spray [...] 1 Each by INTRAUTERINE route as directed. Valentine-3 Fatty Acids (FISH OIL) 500 mg cap Take 1 capsule by mouth once daily. blood sugar diagnostic (BLOOD GLUCOSE TEST) test strip Test blood sugar(s) 1 times daily. Dx: Type 2 DM - Controlled E11.9 Insulin: Yes Lancets lancets Test blood sugar(s) 1 times daily. Dx: Type 2 DM - Controlled E11.9 Insulin: No Lywhscsf-Qs-Und-Fe-FA tab Take 1 tablet by mouth once [...] Age of Onset Alcohol/Drug Mother Heart Father ND Cancer Father PANCREATIC CANCER Diabetes Father Coronary [...] Wt Readings: Date: Wt: (more content not included)...[facility]03-21-2025 History of Present illness Narrative* Ivette Grimes [...] 1 tablet by mouth once daily. Ipratropium Olney (ATROVENT) 21 mcg (0.03 %) nasal spray [...] 1 Each by INTRAUTERINE route as directed. Valentine-3 Fatty Acids (FISH OIL) 500 mg cap Take 1 capsule by mouth once daily. blood sugar diagnostic (BLOOD GLUCOSE TEST) test strip Test blood sugar(s) 1 times daily. Dx: Type 2 DM - Controlled E11.9 Insulin: Yes Lancets lancets Test blood sugar(s) 1 times daily. Dx: Type 2 DM - Controlled E11.9 Insulin: No Ohqulyfs-Sc-Eqe-Fe-FA tab Take 1 tablet by mouth once [...] Age of Onset Alcohol/Drug Mother Heart Father ND Cancer Father PANCREATIC CANCER Diabetes Father Coronary [...] six months and prn. documented in this encounterAdena Regional Medical Center02-21-2025 Telephone encounter Note * [...] Storey LPN December 25, 2024 8:58 AM [facility]02-21-2025 Miscellaneous Notes* Telephone Encounter [...] 25, 2024 8:58 AM documented in this encounterAdena Regional Medical Center02-17-2025 Telephone encounter Note * Telephone Encounter - Jumana Harrell LPN - 12/21/2024 3:19 PM EST Patient notified of results, verbalizes understanding of instructions. Pt stated she is about 80% better with the z-pack and cough drops. Will call is get worse again. Jumana Harrell LPN [facility]02-17-2025 Miscellaneous Notes* Telephone Encounter [...] symptoms improved with the zpack? Jenni Martínez APRN.STEP DOWN SPECIALIST documented in this encounterAdena Regional Medical Center02-17-2025 Telephone encounter Note * [...] improved with the zpack? Jenni Martínez APRN.GABRIELA [facility] Work Phone: 1(948) 381-788302-07-2025 Telephone encounter Note* Telephone Encounter - Jumana Harrell LPN - 12/11/2024 2:24 PM EST Patient notified of results, verbalizes understanding of instructions. Jumana Harrell LPN [facility]02-07-2025 Miscellaneous Notes* Telephone Encounter - Jumana Harrell LPN - 12/11/2024 2:24 PM EST Patient notified of results, verbalizes understanding of instructions. Jumana Harrell LPN * Telephone Encounter - Jenni Martínez APRN.CNP - 12/11/2024 2:16 PM EST Can you please call the patient and let her know that I am still waiting for x- ray results from [facility]. I went ahead and sent in a [...] Provider: JENNI MARTÍNEZ APRN.CNP documented in this encounterAdena [facility]02-[facility] Telephone encounter Note * Telephone Encounter - Jenni Martínez APRN.CNP - 12/11/2024 2:16 PM EST Can you please call the patient and let her know that I am still waiting for x- ray results from [facility]. I went ahead and sent in a [...] until gone. Authorizing Provider: JENNI MARTÍNEZ APRN.CNP [facility]02-07-2025 Instructions* Patient Instructions* Jenni Martínez APRN.CNP - 12/11/2024 11:32 AM EST Get chest xray completed today May use Codeine cough syrup as needed for cough Stay well hydrated Follow up pending test results. documented in this encounterAdena [facility] Medical Center02-07-2025 History of Present illness Narrative* Jenni Martínez APRN.CNP - 12/11/2024 11:00 AM EST This is a 44 year old female who presents today with: Patient presents with: Acute Visit: cough, congestion x 4 weeks HISTORY OF PRESENT ILLNESS: Tori rGay is a 44 year old female. Patient [...] 1 tablet by mouth once daily. Ipratropium Olney (ATROVENT) 21 mcg (0.03 %) nasal spray [...] 1 Each by INTRAUTERINE route as directed. Valentine-3 Fatty Acids (FISH OIL) 500 mg cap Take 1 capsule by mouth once daily. blood sugar diagnostic (BLOOD GLUCOSE TEST) test strip Test blood sugar(s) 1 times daily. Dx: Type 2 DM - Controlled E11.9 Insulin: Yes Lancets lancets Test blood sugar(s) 1 times daily. Dx: Type 2 DM - Controlled E11.9 Insulin: No Jorqantv-Us-Lgt-Fe-FA tab Take 1 tablet by mouth once daily. No current facility-administered medications for this visit. FAMILY HISTORY Problem Relation Age of Onset Alcohol/Drug Mother Heart Father ND Cancer Father PANCREATIC CANCER Diabetes Father Coronary [...] APRN.CNP This note was partially generated using Telepath voice recognition system. Note was reviewed for accuracy. There may be minor misspellings or grammar miscues with Telepath voice recognition. documented in this encounterAdena [facility] Medical Center02-07-2025 NoteHNO ID: [id number] Author: JENNI MARTÍNEZ APRN.CNP Service: ? Author [...] mirena LAPAROSCOPY SURG CHOLECYSTECTOMY 2006 Cholecystectomy, lap (Savi Monetltman) PAST SURGICAL HISTORY OF 2019 stent into [...] 1 tablet by mouth once daily. Ipratropium Olney (ATROVENT) 21 mcg (0.03 %) nasal spray [...] 1 Each by INTRAUTERINE route as directed. Valentine-3 Fatty Acids (FISH OIL) 500 mg cap Take 1 capsule by mouth once daily. blood sugar diagnostic (BLOOD GLUCOSE TEST) test strip Test blood sugar(s) 1 times daily. Dx: Type 2 DM - Controlled E11.9 Insulin: Yes Lancets lancets Test blood sugar(s) 1 times daily. Dx: Type 2 DM - Controlled E11.9 Insulin: No Oqbjcana-Oe-Bne-Fe-FA tab Take 1 tablet by mouth once daily. No current facility-administered medications for this visit. FAMILY HISTORY Problem Relation Age of Onset Alcohol/Drug Mother Heart Father ND Cancer Father PANCREATIC CANCER Diabetes Father Coronary [...] : No history o (more content not included)...[facility] 12-11-2024 Telephone encounter Note* Telephone Encounter - Brittney Meredith RN - 12/11/2024 8:17 AM EST Patient calling to make appt for evaluation of respiratory sx's that began approx 4 weeks ago. Pt states she feels she may have bronchitis or pneumonia. States she was at [facility] ER last month due to dizziness, vision [...] evaluation of respiratory sx's. Brittney Meredith RN [facility]02-07-2025 Miscellaneous Notes* Telephone Encounter - Brittney Meredith RN - 12/11/2024 8:17 AM EST Patient calling to make appt for evaluation of respiratory sx's that began approx 4 weeks ago. Pt states she feels she may have bronchitis or pneumonia. States she was at [facility] ER last month due to dizziness, vision [...] sx's. Brittney Meredith RN documented in this encounterAdena [facility] Center01-22-2025 Telephone encounter Note * [...] Eric LPN November 25, 2024 2:23 PM [facility]01-22-2025 Miscellaneous Notes* Telephone Encounter [...] Thank you. Stephanie Parsons. documented in this encounterAdena Regional Medical Center01-22-2025 Telephone encounter Note * [...] found Please advise. Thank you. Stephanie Parsons. [facility]01-20-2025 Telephone encounter Note* Telephone Encounter - Judith [...] Judith Cueto November 23, 2024 12:34 PM [facility]01-20-2025 Miscellaneous Notes* Telephone Encounter - Judith Napier [...] 23, 2024 12:34 PM documented in this encounterAdena [facility] Center01-14-2025 NotePatient Outreach (FAMPWS) TORI GRAY ([id number]) 1980 F Date Time Provider Department 11/17/24 [...] screening mammogram for breast cancer [Z12.31] Order(s):FLASH STEPHEN [[id number]] Order #: [id number] FUTURE Prescriptions as of 12/18/2024 - potassium [...] tablet by mouth once daily. - Ipratropium Olney (ATROVENT) 21 mcg (0.03 %) nasal spray [...] Each by INTRAUTERINE route as directed. - Valentine-3 Fatty Acids (FISH OIL) 500 mg cap Take 1 capsule by mouth once daily. - blood sugar diagnostic (BLOOD GLUCOSE TEST) test strip Test blood sugar(s) 1 times daily. Dx: Type 2 DM - Controlled E11.9 Insulin: Yes - Lancets lancets Test blood sugar(s) 1 times daily. Dx: Type 2 DM - Controlled E11.9 Insulin: No - Qzhohzfy-Wu-Anc-Fe-FA tab Take 1 tablet by mouth once [...] 05/06/2009 01/23/2010 Routine general medical examination at [facility]*01/23/2010 12/06/2012 Class: Chronic Routine gynecological examination [Z01.419] 01/23/2010 02/22/2014 Class: Chronic Morbid Obesity [E66.01] 01/23/2010 Lumbar Disc Disorder [M51.9] 02/16/2010 Routine general medical examination at [facility]*12/06/2012 02/22/2014 Anxiety [F41.9] 06/07/2014 Type 2 [...] type 2 diabetes m (more content not included)...[facility]12-23-2024 Telephone encounter Note* Telephone Encounter - Priscila [...] France RN October 26, 2024 7:53 PM [facility]12-[facility]24 Miscellaneous Notes* Telephone Encounter [...] 26, 2024 7:53 PM documented in this encounterAdena Regional Medical Center12-16-2024 History of Present illness [...] visit. Either the patient or their legal fraud representative has been informed of the risks [...] hours asneeded for wheezing/shortness of breath. Ipratropium Olney (ATROVENT) 21 mcg (0.03 %) nasal spray [...] 1 Each by INTRAUTERINE route as directed. Valentine-3 Fatty Acids (FISH OIL) 500 mg cap Take 1 capsule by mouth once daily. blood sugar diagnostic (BLOOD GLUCOSE TEST) test strip Test blood sugar(s) 1 times daily. Dx: Type 2 DM - Controlled E11.9 Insulin: Yes Lancets lancets Test blood sugar(s) 1 times daily. Dx: Type 2 DM - Controlled E11.9 Insulin: No Wsklkrot-Oa-Wce-Fe-FA tab Take 1 tablet by mouth once [...] Age of Onset Alcohol/Drug Mother Heart Father ND Cancer Father PANCREATIC CANCER Diabetes Father Coronary [...] TABLET Ivette Grimes MD documented in this encounterAdena Regional Medical Center12-16-2024 NoteHNO ID: [id number] Author: IVETTE GRIMES MD Service: ? Author [...] visit. Either the patient or their legal fraud representative has been informed of the risks [...] as needed for wheezing/shortness of breath. Ipratropium Olney (ATROVENT) 21 mcg (0.03 %) nasal spray [...] 1 Each by INTRAUTERINE route as directed. Valentine-3 Fatty Acids (FISH OIL) 500 mg cap Take 1 capsule by mouth once daily. blood sugar diagnostic (BLOOD GLUCOSE TEST) test strip Test blood sugar(s) 1 times daily. Dx: Type 2 DM - Controlled E11.9 Insulin: Yes Lancets lancets Test blood sugar(s) 1 times daily. Dx: Type 2 DM - Controlled E11.9 Insulin: No Cgmytswc-Rd-Yhv-Fe-FA tab Take 1 tablet by mouth once [...] Age of Onset Alcohol/Drug Mother Heart Father ND Cancer Father PANCREATIC CANCER Diabetes Father Coronary [...] wheeze. No pallor. ASSESSM (more content not included)...[facility]12-16-2024 Evaluation note* Diagnosis Onset Date Resolution Status Admit Date Segmental and somatic dysfunction of lumbar region acute Oct emb2023 8:57am Segmental and somatic dysfunction of pelvic region acute Oct 8:57am Segmental and somatic dysfunction of thoracic region acute October 19 8:57am Disc displacement, lumbar chronic October 19, 2024 8:57am [facility] Work Phone: 1(943) 492-728411-21-2024 History of Present illness Narrative* Ivette Grimes [...] visit. Either the patient or their legal fraud representative has been informed of the risks [...] No increased caffeine. Sugars are increased recently [phone]=187's. Not coming down as much as it [...] hours asneeded for wheezing/shortness of breath. Ipratropium Olney (ATROVENT) 21 mcg (0.03 %) nasal spray [...] 1 Each by INTRAUTERINE route as directed. Valentine-3 Fatty Acids (FISH OIL) 500 mg cap Take 1 capsule by mouth once daily. blood sugar diagnostic (BLOOD GLUCOSE TEST) test strip Test blood sugar(s) 1 times daily. Dx: Type 2 DM - Controlled E11.9 Insulin: Yes Lancets lancets Test blood sugar(s) 1 times daily. Dx: Type 2 DM - Controlled E11.9 Insulin: No Cguksipa-Yp-Yjb-Fe-FA tab Take 1 tablet by mouth once [...] Age of Onset Alcohol/Drug Mother Heart Father ND Cancer Father PANCREATIC CANCER Diabetes Father Coronary [...] weeks Ivette Grimes MD documented in this encounterAdena Regional Medical Center11-21-2024 NoteHNO ID: [id number] Author: IVETTE GRIMES MD Service: ? Author [...] visit. Either the patient or their legal fraud representative has been informed of the risks [...] No increased caffeine. Sugars are increased recently 114=735's. Not coming down as much as it [...] as needed for wheezing/shortness of breath. Ipratropium Olney (ATROVENT) 21 mcg (0.03 %) nasal spray [...] 1 Each by INTRAUTERINE route as directed. Valentine-3 Fatty Acids (FISH OIL) 500 mg cap Take 1 capsule by mouth once daily. blood sugar diagnostic (BLOOD GLUCOSE TEST) test strip Test blood sugar(s) 1 times daily. Dx: Type 2 DM - Controlled E11.9 Insulin: Yes Lancets lancets Test blood sugar(s) 1 times daily. Dx: Type 2 DM - Controlled E11.9 Insulin: No Qtnlkhvv-Pj-Gbx-Fe-FA tab Take 1 tablet by mouth once [...] Age of Onset Alcohol/Drug Mother Heart Father ND Cancer Father PANCREATIC CANCER Diabetes Father Coronary [...] Wt Readings: Date: Wt: (more content not included)...[facility]10-31-2024 Instructions* Patient Instructions* Fatuma Beckford PA-C - [...] office for further instructions. documented in this encounterAdena Regional Medical Center10-31-2024 NoteHNO ID: [id number] Author: FATUMA BECKFORD PA-C Service: ? Author Type: Physician Parts Cleaner Type: Progress Notes Filed: 09/03/2024 13:30 Note [...] for migraine Informed Consent Consent Obtained: Written [place] Protocol A moment to CARE was completed [...] applicable Written Consent Obtained: Written LOT #: [id number] Expiration Date: Month: Year: 2025 Second vial: LOT #: [id number] Expiration Date: Month: Year: 2025 Injection Sites Left (Units) Left (Sites) Right (Units) Right (Sites) TOTAL (Units) Pharmacy Scheduler 5 1 5 1 10 Procerus Units: [...] mild. Estimates 5 migraines since march. [facility]10-31-[facility]24 History of Present illness Narrative* Fatuma [...] for migraine Informed Consent Consent Obtained: Written Chappell Protocol A moment to CARE was completed [...] applicable Written Consent Obtained: Written LOT #: [id number] Expiration Date: Month: 12 Year: 2025 Second vial: LOT #: [id number] Expiration Date: Month: Year: 2025 Injection Sites Left (Units) Left (Sites) Right (Units) Right (Sites) TOTAL (Units) Pharmacy Scheduler 5 1 5 1 10 Procerus Units: [...] march. Fatuma Beckford PA-C documented in this encounterAdena [facility] Medical Center10-29-2024 Telephone encounter Note * Telephone Encounter - Rebecca Baker - 09/01/2024 4:08 PM EDT Tori was Ok'ed to get her botox appointment moved into a new patient time due to frequent rescheduling of this visit. She is now scheduled for , 09/03. She has also requested a refill of her Nurtec ODT medication. Please advise, Rebecca Baker [facility]10-29-2024 Miscellaneous Notes* Telephone Encounter - Rebecca Baker - 09/01/2024 4:08 PM EDT Tori was Ok'ed to get her botox appointment moved into a new patient time due to frequent rescheduling of this visit. She is now scheduled for , 09/03. She has also [facility]. Please advise, Rebecca Baker documented in this encounterAdena Regional Medical Center10-29-2024 Telephone encounter Note * [...] with this date and time. Rebecca Baker [facility]10-29-2024 Miscellaneous Notes* Telephone Encounter [...] Nieto - 09/01/2024 3:30 PM EDT 09/10 [place] appt rescheduled to / and put on wait list. Provider will be out of office. 1st attempt to notify pt, sent MC message. documented in this encounterAdena Regional Medical Center10-29-2024 Telephone encounter Note * Telephone Encounter - Tala Wilson - 09/01/2024 3:54 PM EDT Patient read mychart [facility]10-29-2024 Telephone encounter Note* Telephone Encounter - Steph Nieto - 09/01/2024 3:30 PM EDT 09/10 [facility] appt rescheduled to 12/ and put on wait list. Provider will be out of office. 1st attempt to notify pt, sent MC message. [facility]10-08-20[facility] Telephone encounter Note* Telephone Encounter - Steph Nieto - 08/11/2024 3:58 PM EDT Pt read MC message. [facility]10-08-2024 Miscellaneous Notes* Telephone Encounter - Steph Nieto - 08/11/2024 3:58 PM EDT Pt read MC message. * Telephone Encounter - Steph Nieto - 08/11/2024 3:32 PM EDT [place] appt on 09/10 moved to 3 PM. 1st attempt to notify pt, sent MC message. documented in this encounterAdena [facility] Medical Center10-08-2024 Telephone encounter Note * Telephone Encounter - Steph Nieto - 08/11/2024 3:32 PM EDT [place] appt on 09/10 moved to 3 PM. 1st attempt to notify pt, sent MC message. [facility]10-08-[facility] Telephone encounter Note* Telephone [...] Salmon MA August 11, 2024 11:06 AM [facility]10-08-2024 Miscellaneous Notes* Telephone Encounter [...] 11, 2024 11:06 AM documented in this encounterAdena Regional Medical Center10-03-2024 Telephone encounter Note * Telephone Encounter - Dennise Robles MA - 08/06/2024 10:38 AM EDT APPROVAL. [employer]. EOC # [id number] VALIDITY DATES 08/06/24-08/05/25 Pharmacy informed. Dennise Robles MA [facility]10-03-2024 Miscellaneous Notes* Telephone Encounter - Dennise Robles MA - 08/06/2024 10:38 AM EDT APPROVAL. S[employer]. EOC # [id number] VALIDITY DATES 08/06/24-08/05/25 Pharmacy informed. Dennise Robles MA documented in this encounterAdena Regional Medical Center10-02-2024 NoteHNO ID: [id number] Author: IVETTE GRIMES MD Service: ? Author [...] as physical. Reviewed labs recently done at [facility]. A1c was 6.7. ldl was 105. Hdl [...] as needed for wheezing/shortness of breath. Ipratropium Olney (ATROVENT) 21 mcg (0.03 %) nasal spray [...] 1 Each by INTRAUTERINE route as directed. Valentine-3 Fatty Acids (FISH OIL) 500 mg cap Take 1 capsule by mouth once daily. blood sugar diagnostic (BLOOD GLUCOSE TEST) test strip Test blood sugar(s) 1 times daily. Dx: Type 2 DM - Controlled E11.9 Insulin: Yes Lancets lancets Test blood sugar(s) 1 times daily. Dx: Type 2 DM - Controlled E11.9 Insulin: No Kqrepxqs-Dj-Vfg-Fe-FA tab Take 1 tablet by mouth once [...] Age of Onset Alcohol/Drug Mother Heart Father ND Cancer Father PANCREATIC CANCER Diabetes Father Coronary [...] of breath or wheez (more content not included)...[facility]10-02-2024 History of Present illness Narrative* Ivette Grimes [...] as physical. Reviewed labs recently done at [facility]. A1c was 6.7. ldl was 105. Hdl [...] hours asneeded for wheezing/shortness of breath. Ipratropium Olney (ATROVENT) 21 mcg (0.03 %) nasal spray [...] 1 Each by INTRAUTERINE route as directed. Valentine-3 Fatty Acids (FISH OIL) 500 mg cap Take 1 capsule by mouth once daily. blood sugar diagnostic (BLOOD GLUCOSE TEST) test strip Test blood sugar(s) 1 times daily. Dx: Type 2 DM - Controlled E11.9 Insulin: Yes Lancets lancets Test blood sugar(s) 1 times daily. Dx: Type 2 DM - Controlled E11.9 Insulin: No Odwnuusi-Pa-Sap-Fe-FA tab Take 1 tablet by mouth once [...] Age of Onset Alcohol/Drug Mother Heart Father ND Cancer Father PANCREATIC CANCER Diabetes Father Coronary [...] stable. Ivette Grimes MD documented in this encounterAdena Regional Medical Center09-23-2024 Telephone encounter Note * [...] Yoon LPN July 27, 2024 8:45 AM [facility]09-23-2024 Miscellaneous Notes* Telephone Encounter [...] 27, 2024 8:45 AM documented in this encounterAdena Regional Medical Center09-17-2024 Telephone encounter Note * Telephone Encounter - Ingrid Salmon MA - 07/21/2024 3:02 PM EDT Pt notified. Requested to have order faxed to [facility]. Order faxed. Ingrid Salmon MA [facility]09-17-2024 Miscellaneous Notes* Telephone Encounter - Ingrid Salmon MA - 07/21/2024 3:02 PM EDT Pt notified. Requested to have order faxed to [facility]. Order faxed. Ingrid Salmon MA * Telephone [...] advise, Gale Bower RN documented in this encounterAdena Regional Medical Center09-17-2024 Telephone encounter Note * Telephone Encounter - Ivette Grimes MD - 07/21/2024 2:18 PM EDT ordered [facility]09-17-20[facility] Telephone encounter Note* Telephone Encounter - Gale Bower RN - 07/21/2024 1:45 PM EDT Patient calls and states that cough is not getting any better. Patient states that Dr. Grimes had told her that if cough had not improved that provider wanted to order her a chest xray. Please review and advise, Gale Bower RN [facility]09-06-2024 Telephone encounter Note* Telephone Encounter - Nirmala Storey LPN - 07/10/2024 11:16 AM EDT Left detailed message for patient. [facility]09-06-2024 Miscellaneous Notes* Telephone Encounter - Nirmala Storey LPN - 07/10/2024 11:16 AM EDT Left detailed message for patient. * Telephone Encounter - Ivette Grimes MD - 07/10/2024 11:11 AM EDT [facility] Call sugars in two [...] advise, Gale Bower RN documented in this encounterAdena Regional Medical Center09-06-2024 Telephone encounter Note * Telephone Encounter - Ivette Grimes MD - 07/10/2024 11:11 AM EDT Rx sent for anaxiga. Lets try this Call sugars in two weeks. [facility]09-05-20[facility] Telephone encounter Note* Telephone [...] Please review and advise, Gale Bower RN [facility]09-04-2024 Telephone encounter Note* Telephone Encounter - Ivette Grimes MD - 07/08/2024 2:03 PM EDT noted [facility]09-04-2024 Miscellaneous Notes* Telephone Encounter - Ivette Grimes MD - 07/08/2024 2:03 PM EDT noted * Telephone Encounter - Dennise Robles MA - 07/08/2024 1:13 PM EDT Labs in chart review. Dennise Robles MA documented in this encounterAdena Regional Medical Center09-04-2024 Telephone encounter Note * Telephone Encounter - Dennise Robles MA - 07/08/2024 1:13 PM EDT Labs in chart review. Dennise Robles MA [facility]08-30-2024 NoteHNO ID: [id number] Author: IVETTE GRIMES MD Service: ? Author [...] as needed for wheezing/shortness of breath. Ipratropium Olney (ATROVENT) 21 mcg (0.03 %) nasal spray [...] 1 Each by INTRAUTERINE route as directed. Valentine-3 Fatty Acids (FISH OIL) 500 mg cap Take 1 capsule by mouth once daily. blood sugar diagnostic (BLOOD GLUCOSE TEST) test strip Test blood sugar(s) 1 times daily. Dx: Type 2 DM - Controlled E11.9 Insulin: Yes Lancets lancets Test blood sugar(s) 1 times daily. Dx: Type 2 DM - Controlled E11.9 Insulin: No Thoybadb-Lj-Cof-Fe-FA tab Take 1 tablet by mouth once [...] Age of Onset Alcohol/Drug Mother Heart Father ND Cancer Father PANCREATIC CANCER Diabetes Father Coronary [...] equally round and reacti (more content not included)...[facility]08-30-2024 History of Present illness Narrative* Ivette Grimes [...] hours asneeded for wheezing/shortness of breath. Ipratropium Olney (ATROVENT) 21 mcg (0.03 %) nasal spray [...] 1 Each by INTRAUTERINE route as directed. Valentine-3 Fatty Acids (FISH OIL) 500 mg cap Take 1 capsule by mouth once daily. blood sugar diagnostic (BLOOD GLUCOSE TEST) test strip Test blood sugar(s) 1 times daily. Dx: Type 2 DM - Controlled E11.9 Insulin: Yes Lancets lancets Test blood sugar(s) 1 times daily. Dx: Type 2 DM - Controlled E11.9 Insulin: No Mfckdfxj-Wy-Wqy-Fe-FA tab Take 1 tablet by mouth once [...] Age of Onset Alcohol/Drug Mother Heart Father ND Cancer Father PANCREATIC CANCER Diabetes Father Coronary [...] follow up or prn documented in this encounterAdena Regional Medical Center08-24-2024 Telephone encounter Note * [...] Lazo LPN June 27, 2024 11:35 AM [facility]08-24-2024 Miscellaneous Notes* Telephone Encounter [...] 27, 2024 11:35 AM documented in this encounterAdena Regional Medical Center08-24-2024 Telephone encounter Note * [...] Lazo LPN June 27, 2024 11:29 AM [facility]08-24-2024 Miscellaneous Notes* Telephone Encounter [...] 27, 2024 11:29 AM documented in this encounterAdena Regional Medical Center08-08-2024 Telephone encounter Note * Telephone Encounter - Lubna De La Garza APRN.CNP - 06/11/2024 12:40 PM EDT Ángel Rodriges were ordered. [facility]08-08-2024 Miscellaneous Notes* Telephone Encounter - Lubna De La Garza APRN.CNP - 06/11/2024 12:40 PM EDT Ángel Rodriges were ordered. * Telephone Encounter - Ingrid Salmon MA - 06/11/2024 12:25 PM EDT See mychart message documented in this encounterAdena Regional Medical Center08-08-2024 Telephone encounter Note * Telephone Encounter - Ingrid Salmon MA - 06/11/2024 12:25 PM EDT See Risehart message [facility]08-01-2024 Telephone encounter Note* Telephone Encounter - Claribel Wright LPN - 06/04/2024 3:37 PM EDT Prior Auth Determination: Denied with Cover my meds. Received via: CMM Medication/ Treatment: Nurte Reason: Outcome N/A today by [facility] Prior Authorization Department does not manage Prior Authorizations for this plan. Please contact member services phone number on the back of the member ID card. Appeal Information (if included): Re submitted via [employer] Benefits Faxed to [phone] Confirmation received [facility]08-01-2024 Miscellaneous Notes* Telephone Encounter - Claribel Wright LPN - 06/04/2024 3:37 PM EDT Prior Auth Determination: Denied with Cover my meds. Received via: CMM Medication/ Treatment: Nurte Reason: Outcome N/A today by [facility] [employer] Prior Authorization Department does not manage Prior Authorizations for this plan. Please contact member services phone number on the back of the member ID card. Appeal Information (if included): Re submitted via [employer] Benefits Faxed to [phone] Confirmation received * Telephone Encounter - Claribel Wright LPN - 06/04/2024 2:22 PM EDT Prior Authorization PENDING Prior Authorization Request From: [facility] Medication/ Treatment: Nurtec Submitted Via Cover My Meds Reference# (if available): (Asntos: [id number]) documented in this encounterAdena Regional Medical Center08-01-2024 Telephone encounter Note * Telephone Encounter - Claribel Wright LPN - 06/04/2024 2:22 PM EDT Prior Authorization PENDING Prior Authorization Request From: [facility] Medication/ Treatment: Nurtec Submitted Via Cover My Meds Reference# (if available): (Santos: [id number]) [facility]07-31-[facility] History of Present illness [...] visit. Either the patient or their legal fraud representative has been informed of the risks [...] hours asneeded for wheezing/shortness of breath. Ipratropium Olney (ATROVENT) 21 mcg (0.03 %) nasal spray [...] 1 Each by INTRAUTERINE route as directed. Valentine-3 Fatty Acids (FISH OIL) 500 mg cap Take 1 capsule by mouth once daily. blood sugar diagnostic (BLOOD GLUCOSE TEST) test strip Test blood sugar(s) 1 times daily. Dx: Type 2 DM - Controlled E11.9 Insulin: Yes Lancets lancets Test blood sugar(s) 1 times daily. Dx: Type 2 DM - Controlled E11.9 Insulin: No Thfqqqus-Ld-Dsf-Fe-FA tab Take 1 tablet by mouth once [...] Age of Onset Alcohol/Drug Mother Heart Father ND Cancer Father PANCREATIC CANCER Diabetes Father Coronary [...] issues. Ivette Grimes MD documented in this encounterA[facility]07-10-[facility]24 Telephone encounter Note * [...] Lazo LPN May 13, 2024 11:29 AM [facility]07-10-2024 Miscellaneous Notes* Telephone Encounter [...] 13, 2024 11:29 AM documented in this encounterAdena [facility] Center06-28-2024 Telephone encounter Note * Telephone Encounter - Cindy Edouard APRN.CNP - 05/01/2024 12:08 PM EDT Script sent. Cindy Edouard APRN.CNP [facility] Work Phone: 1(215) 549-646706-28-2024 Miscellaneous Notes* Telephone Encounter - Cindy Edouard APRN.CNP - 05/01/2024 12:08 PM EDT Script sent. Cindy Edouard APRN.CNP * Telephone Encounter - Rukhsana Wood - 05/01/2024 11:47 AM EDT Tori is calling Ivette Grimes MD today to request a medication not on current med list: Tizanidine 4 mg tablet taking every 8 hours as needed #60 refill 0 Pharmacy [facility] Please send today if possible, patient is out of this medicaiton Patient has been identified by name and birthdate. Duration of symptoms: N/A Person calling: self Call patient at: on cell [phone] (home) [phone] (work) [phone] (cell) Was an appointment scheduled: No Closing statement: Results or non-symptom based questions: Thank you for calling [facility], your call will be returned within the next business day. Rukhsana Guerrero documented in this encounterAdena [facility] Center06-28-2024 Telephone encounter Note * Telephone Encounter - Rukhsaan Wood - 05/01/2024 11:47 AM EDT Tori is calling Ivette Grimes MD today to request a medication not on current med list: Tizanidine 4 mg tablet taking every 8 hours as needed #60 refill 0 Pharmacy [facility] Please send today if possible, patient is out of this medicaiton Patient has been identified by name and birthdate. Duration of symptoms: N/A Person calling: self Call patient at: on cell [phone] (home) [phone] (work) [phone] (cell) Was an appointment scheduled: No Closing statement: Results or non-symptom based questions: Thank you for calling [facility], your call will be returned within the next business day. Rukhsana Guerrero [facility]06-17-2024 Telephone encounter Note* Telephone [...] France RN April 20, 2024 11:22 AM [facility]06-17-2024 Miscellaneous Notes* Telephone Encounter [...] 20, 2024 11:22 AM documented in this encounterAdena [facility] Center06-17-2024 Telephone encounter Note * [...] Yoon LPN April 20, 2024 10:56 AM [facility]06-17-2024 Miscellaneous Notes* Telephone Encounter [...] 20, 2024 10:56 AM documented in this encounterAdena [facility] Center06-12-2024 Telephone encounter Note * Telephone Encounter - Mirna Santos MA - 04/15/2024 12:33 PM EDT PA approved till 04/14/2025. Faxed approval to pharmacy and patient left Mirna Santos MA [facility]06-12-2024 Miscellaneous Notes* Telephone Encounter - Mirna Santos MA - 04/15/2024 12:33 PM EDT PA approved till 04/14/2025. Faxed approval to pharmacy and patient left Mirna Santos MA * Telephone Encounter - Mirna Santos MA - 04/15/2024 8:42 AM EDT Submitted PA through [employer] for Trulicity 0.75 mg. Form faxed with office notes and A1c results Mirna Santos MA documented in this encounterAdena Regional Medical Center06-12-2024 Telephone encounter Note * Telephone Encounter - Mirna Santos MA - 04/15/2024 8:42 AM EDT Submitted PA through [employer] for Trulicity 0.75 mg. Form faxed with office notes and A1c results Mirna Santos MA [facility]06-11-2024 Telephone encounter Note* Telephone Encounter - Sheron Anne - 04/14/2024 9:01 AM EDT Last: 02/15/2023 Noted-Follow up in 3 months. Consider transfer of care back to PCP if patient does well on the current dose of her medication atthe next visit. It does not appear that you have seen her since [facility]06-11-[facility]24 Miscellaneous Notes* Telephone Encounter - Sheron Anne - 04/14/2024 9:01 AM EDT Last: 02/15/2023 Noted-Follow up in 3 months. Consider transfer of care back to PCP if patient does well on the current dose of her medication atthe next visit. It does not appear that you have seen her since documented in this encounterAdena [facility] Medical Center06-03-2024 Telephone encounter Note * Telephone Encounter - Darrion Severino MA - 04/06/2024 2:26 PM EDT Reminder set for botox authorization to be submitted 05/31. Due for next visit 07/01/24. Previous 04/02/24. [facility]06-03-[facility] Miscellaneous Notes* Telephone Encounter - Darrion Severino MA - 04/06/2024 2:26 PM EDT Reminder set for botox authorization to be submitted 05/31. Due for next visit 07/01/24. Previous 04/02/24. documented in this encounterAdena [facility] Medical Center05-30-2024 Instructions* Patient Instructions* Fatuma [...] at for further instructions. documented in this encounterAdena Regional Medical Center05-30-2024 History of Present illness [...] days/month: 28 (672 headache-free hours) Migraine severity: 7/10 Patient reduction in overall migraine days: Yes [...] for migraine Informed Consent Consent Obtained: Written Chappell Protocol A moment to CARE was completed [...] applicable Written Consent Obtained: Written LOT #: [id number] Expiration Date: Month: 6 Year: 2025 Second vial: LOT #: [id number] Expiration Date: Month: 6 Year: 2025 Injection Sites Left (Units) Left (Sites) Right (Units) Right (Sites) TOTAL (Units) Pharmacy Scheduler 5 1 5 1 10 Procerus Units: [...] needed. Fatuma Beckford PA-C documented in this encounterAdena Regional Medical Center04-26-2024 Telephone encounter Note * Telephone Encounter - Alyssa Andrews LPN - 02/28/2024 1:21 PM EDT Patient MyChart message requesting the following refill Refill(s) Requested: Requested Prescriptions Pending Prescriptions Disp Refills tiZANidine (ZANAFLEX) 4 mg tablet 60 tablet 0 Sig: Take 1 tablet by mouth every 8 hours as needed. ALLERGIES Allergen Reactions Lidocaine Hives Steroids [Betametha* Hives (home) [phone] (work) [phone] (cell) Last Office Visit Date: 12/09/2023 Last Distance Health Visit: 07/15/2023 Future Appointment: Visit date not found The patients preferred pharmacy has been captured for this encounter? yes Request is for script(s) to be escript to pharmacy. Alyssa Andrews LPN [facility]04-26-2024 Miscellaneous Notes* Telephone Encounter - Alyssa Andrews LPN - 02/28/2024 1:21 PM EDT Patient MyChart message requesting the following refill Refill(s) Requested: Requested Prescriptions Pending Prescriptions Disp Refills tiZANidine (ZANAFLEX) 4 mg tablet 60 tablet 0 Sig: Take 1 tablet by mouth every 8 hours as needed. ALLERGIES Allergen Reactions Lidocaine Hives Steroids [Betametha* Hives (home) [phone] (work) [phone] (cell) Last Office Visit Date: 12/09/2023 Last Distance Health Visit: 07/15/2023 Future Appointment: Visit date not found The patients preferred pharmacy has been captured for this encounter? yes Request is for script(s) to be escript to pharmacy. Alyssa Andrews LPN documented in this encounterAdena [facility] Medical Center03-20-2024 Miscellaneous Notes* Telephone Encounter - Stephanie Parsons - 01/22/2024 4:00 PM EDT Patient has been identified by name and date of : Yes Patient phones for refill(s): Patient called for a refill of Tizanidine 4 mg. (Not in refill list). Please send to [facility] pharmacy. Date of last office visit in primary care: 12/09/2023 Date of next office visit in primary care: none Please advise. Thank you. Stephanie Parsons. documented in this encounterAdena Regional Medical Center03-13-2024 Miscellaneous Notes* Telephone Encounter - Roya Jaramillo LPN - 01/15/2024 12:07 PM EDT Fax received- Anthony has been approved from 01/15/24 - 04/16/24. Roya Jaramillo LPN * Telephone Encounter - Angely Goldsmith LPN - 01/14/2024 5:30 PM EDT Faxed Prior authorization Gilles, signed by provider to [employer] [phone]. Angely Goldsmith LPN * Telephone Encounter - Angely Goldsmith LPN - 01/09/2024 5:17 PM EST Prior Authorization from [employer] received for Nurtec 75 mg, EOC number [id number] dated 01/09/2024 requested a completed drug specific form to be completed, signed by provider faxed. Copy placed on MQ bin in the [place] location to review, sign. Angely Goldsmith LPN * Telephone Encounter - Roya Jaramillo LPN - 01/03/2024 3:39 PM EST Signed completed form faxed per request. Roya Jaramillo LPN * Telephone Encounter - Mariaa Ambrosio OCCA - 12/27/2023 9:01 AM EST Prior authorization needed for [facility]. Patient has [employer], form completed and OV notes attached. Placed on providers desk for signature when she returns to office 12/31. Once signed, please fax asindicated on form. Thank you. GRISELDA Jasmine documented in this encounterAdena Regional Medical Center02-22-2024 Instructions* Patient Instructions* Fatuma [...] office for further instructions. documented in this encounterAdena Regional Medical Center02-22-2024 History of Present illness [...] for migraine Informed Consent Consent Obtained: Written Chappell Protocol A moment to CARE was completed [...] applicable Written Consent Obtained: Written LOT #: [id number] Expiration Date: Month: 6 Year: 2025 Second vial: LOT #: [id number] Expiration Date: Month: 6 Year: 2025 Injection Sites Left (Units) Left (Sites) Right (Units) Right (Sites) TOTAL (Units) Pharmacy Scheduler 5 1 5 1 10 Procerus Units: [...] appointment. Fatuma Beckford PA-C documented in this encounterAdena Regional Medical Center02-05-2024 Miscellaneous Notes* Telephone Encounter - Nirmala Storey LPN - 12/09/2023 6:36 PM EST Faxed to [facility]. * Telephone Encounter - Ivette Grimes MD - 12/09/2023 6:04 PM EST Order placed * Telephone Encounter - Nirmala Storey LPN - 12/09/2023 5:48 PM EST Please file mammo. For [facility] need to be mammo with jaquelin. After filed please fax to [facility] for patient. documented in this encounterAdena Regional Medical Center02-05-2024 History of Present illness Narrative* Ivette Grimes MD - 12/09/2023 5:29 PM EST Patient presents with: Diabetes HPI: Patient presents today for office visit for follow up. Hb was ok per [facility] lab Still has menses. DM:not checking. Sugars [...] for 180 days. Take one poqhs Ipratropium Olney (ATROVENT) 21 mcg (0.03 %) nasal spray [...] 1 Each by INTRAUTERINE route as directed. Valentine-3 Fatty Acids (FISH OIL) 500 mg cap Take 1 capsule by mouth once daily. blood sugar diagnostic (BLOOD GLUCOSE TEST) test strip Test blood sugar(s) 1 times daily. Dx: Type 2 DM - Controlled E11.9 Insulin: Yes Lancets lancets Test blood sugar(s) 1 times daily. Dx: Type 2 DM - Controlled E11.9 Insulin: No Tqgaqpyb-Sy-Oxs-Fe-FA tab Take 1 tablet by mouth once [...] Age of Onset Alcohol/Drug Mother Heart Father ND Cancer Father PANCREATIC CANCER Diabetes Father Coronary [...] - stable. Ivette Grimes documented in this encounterAdena Regional Medical Center12-24-2023 Discharge summary Author Luan Zepeda [facility] October 27, 2023 3:44pm Note Date/Time October 27, 2023 3:16pm [facility] Medical Records Department [address] [place] [address] Emergency Department Summary 10/27/23 MR#: [id number] Acct: [id number] Name: TORI GRAY Rep #:[id number] : 1980 43 From: Luan Barry PCP: Dr. Ivette Grimes MD Status:PRE E R Location: ED HPI History of Present Illness Chief Complaint: Ear Problem [facility] Medical History Abnormal ECG Acute bronchitis Acute [...] %) nasal spray 2 spray intranasal BID cjxnoecdq24/20/20 [History Last Taken 08/03/23] omega-3 fatty acids [...] your Primary Care Provider. Call [facility] ([phone]) or report to the closest Emergency Room. Call 911 if necessary. 10/27/23 0454 <Electronically signed by Luan Zepeda DO> Cosigner Signature (if applicable): CC: Dr. Ivette Grimes MD ~ Signed [facility] Work Phone: [phone] Miscellaneous Notes* Telephone Encounter - Fatuma Beckford PA-C - 10/15/2023 8:13 AM EST Patient was given three month supply on 09/13/23 documented in this encounterAdena Regional Medical Center12-11-2023 Miscellaneous Notes* Telephone Encounter - Quinn Lazo - 10/14/2023 1:43 PM EST Patient phones requesting refills as follows: Requested Prescriptions Pending Prescriptions Disp Refills topiramate (TOPAMAX) 100 mg tablet 60 tablet 5 Sig: Take 1 tablet by mouth two times a day. APRIL 07/15/23 NOV 12/09/23 Please review and advise. Quinn Lazo documented in this encounterAdena Regional Medical Center12-11-2023 Miscellaneous Notes* Telephone Encounter [...] (Not on refill list). Please send to [facility] pharmacy. TY documented in this encounterAdena Regional Medical Center11-21-2023 Miscellaneous Notes* Telephone Encounter - Ry Wang - 09/24/2023 8:20 AM EST Patient's request for medication is as follows: Requested Prescriptions Pending Prescriptions Disp Refills FLUoxetine (PROZAC) 20 mg capsule 90 capsule 0 Sig: Take 1 capsule by mouth once daily. Prescription(s) as above. Please process accordingly. Ry Wang documented in this encounterAdena Regional Medical Center11-06-2023 Miscellaneous Notes* Telephone Encounter - Quinn Lazo - 09/09/2023 1:21 PM EST Patient phones requesting refills as follows: Requested Prescriptions Pending Prescriptions Disp Refills ZOLMitriptan (ZOMIG) 5 mg tablet 9 tablet 11 Sig: Take 1 tablet (5 mg) by mouth once daily. prn APRIL 07/15/23 NOV 12/09/23 Please review and advise. Quinn Lazo documented in this [facility]10-23-2023 Miscellaneous Notes* Telephone Encounter - Nakia Caraballo RN - 08/26/2023 11:58 AM EDT Patient scheduled for 09/13/23 at 2 pm for botox. Latonia Caraballo RN, BSN documented in this [facility]10-20-2023 Miscellaneous Notes* Telephone Encounter - Nirmala Storey LPN - 08/23/2023 2:40 PM EDT Completed and faxed as requested. * Telephone Encounter - Dennise Robles - 08/20/2023 11:55 AM EDT Type of form: 2022 Healthy living program Form received via mail When form is completed, Fax form to [phone] Form has been forwarded to Physician Desk: Dr. Sydney Robles documented in this [facility]09-01-2023 Miscellaneous Notes* Telephone Encounter - Quinn [...] advise. Quinn Lazo LPN documented in this encounterAdena Regional Medical Center09-01-2023 Miscellaneous Notes* Telephone Encounter - Jenni Zaman - 07/05/2023 8:25 AM EDT Patient has been identified by name and date of : Yes, Provider SYDNEY Pharmacy phones for refill(s): Requested Prescriptions Pending Prescriptions Disp Refills fexofenadine (LAMA ALLERGY) 180 mg tablet 90 tablet 3 [...] Thank you. Jenni Zaman documented in this encounterAdena Regional Medical Center08-16-2023 History of Present illness [...] 02/22/2014 5.3 % 12/05/2012 5.9 % HBA1C, Mroeno (%) Date Value 01/23/2010 5.8 PCP: Ivette [...] mouth every 8 hours as needed. Ipratropium Olney (ATROVENT) 21 mcg (0.03 %) nasal spray [...] 1 Each by INTRAUTERINE route as directed. Valentine-3 Fatty Acids (FISH OIL) 500 mg cap Take 1 capsule by mouth once daily. Lancets lancets Test blood sugar(s) 1 times daily. Dx: Type 2 DM - Controlled E11.9 Insulin: No Abkhotkh-Ss-Fge-Fe-FA tab Take 1 tablet by mouth once [...] Age of Onset Alcohol/Drug Mother Heart Father ND Cancer Father PANCREATIC CANCER Diabetes Father Coronary [...] Stein DPM Podiatry [address] [facility] [address] Dept: [phone] Dept * Keri Parker RN - 06/19/2023 [...] developed left foot pain documented in this encounterAdena Regional Medical Center08-16-2023 Instructions* Patient Instructions* Umesh [...] time on their feet, such as nurses, singing waiter or waitress/waiters, andmail carriers, often experience plantar fasciitis. Athletes [...] choose the one that fits the best. [place] with your athletic shoes to find a [...] Powerstep Original Full length. Can purchase at [employer] here in [place], [employer] in [place] or [place]. Also can find in [place] in [facility]. Powersteps can also be purchased online, starting [...] everything fits well together documented in this encounterAdena Regional Medical Center08-04-2023 History of Present illness [...] migraine, would like to go back to [facility], noted that I do botox in this location and patient would like to transfer. EEG completed 04/02/23 at [facility] and per report, normal. Pt reports that [...] had another concussion 2 weeks ago - states was working at [employer] and tubs of butter fell and hit her on the right side of the head. Pt states hurt the next day but then felt better. Did not seek medical attention. But then states went to [facility] ER where they did a CT scan [...] mouth every 8 hours as needed. Ipratropium Olney (ATROVENT) 21 mcg (0.03 %) nasal spray [...] 2 DM - Controlled E11.9 Insulin: No Yjkdypyv-Rh-Xfn-Fe-FA tab Take 1 tablet by mouth once daily. FLUoxetine (PROZAC) 20 mg capsule Take 1 capsule by mouth once daily. Valentine-3 Fatty Acids (FISH OIL) 500 mg cap [...] Age of Onset Alcohol/Drug Mother Heart Father ND Cancer Father PANCREATIC CANCER Diabetes Father Coronary [...] time. [facility] Iv[facility] Mejia MD I spent a total of 42 minutes on the date of the service which included preparing to see the patient, tvuq-fi-hohr patient care, completing clinical documentation, obtaining and/or [...] of your PCP/referring physician. documented in this encounterAdena Regional Medical Center08-03-2023 History of Present illness [...] eps and given ok to continue. Seeing [place] cardiology. Feeling well overall MEDICATIONS: Current Outpatient Medications Medication Sig tiZANidine (ZANAFLEX) 4 mg tablet Take 1 tablet by mouth every 8 hours as needed. Ipratropium Olney (ATROVENT) 21 mcg (0.03 %) nasal spray [...] 1 Each by INTRAUTERINE route as directed. Valentine-3 Fatty Acids (FISH OIL) 500 mg cap Take 1 capsule by mouth once daily. blood sugar diagnostic (BLOOD GLUCOSE TEST) test strip Test blood sugar(s) 1 times daily. Dx: Type 2 DM - Controlled E11.9 Insulin: Yes (Patient not taking: Reported on 05/28/2023) Lancets lancets Test blood sugar(s) 1 times daily. Dx: Type 2 DM - Controlled E11.9 Insulin: No Hkhmhymo-Ym-Pcp-Fe-FA tab Take 1 tablet by mouth once [...] Age of Onset Alcohol/Drug Mother Heart Father ND Cancer Father PANCREATIC CANCER Diabetes Father Coronary [...] RTO in six months documented in this encounterAdena Regional Medical Center07-26-2023 History of Present illness Narrative* Isiah Funes APRN.CNP - 05/29/2023 4:38 PM EDT Boot provided, see yesterdays addended noted. documented in this encounterAdena Regional Medical Center07-26-2023 Miscellaneous Notes* Telephone Encounter [...] boot. Please call Pt. documented in this encounterAdena Regional Medical Center07-17-2023 Discharge summary Author Sam Pearl [facility] May 20, 2023 10:36pm Note Date/Time May 20, 2023 10:3 6pm [facility] Medical Records Department [address] [place] [address] Emergency Department Summary 05/20/23 MR#: [id number] Acct: [id number] Name: TORI GRAY Rep #:[id number] : 1980 42 From: Sam Pearl MD PCP: Dr. Ivette Grimes MD Status:PRE E R Location: ED HPI History of Present Illness Chief Complaint: Head Injury Informant: patient Onset/Context/Timing Onset: Hours (1.5) Mechanism/Context: Blunt Injury Narrative Narrative: Patient states she was working at a [employer], it was almost closing time, she was [...] are now made worse since this injury. [facility] Medical History Abnormal ECG Acute bronchitis Acute [...] #10 ea 04/26/20 [History Last Taken Unknown] psgfqiik-fvv-Jc-FA 1 mg capsule 1 cap PO DAILY [...] Normal speech. Can name and remember objects. [place] Coma Scale: document GCS findings Spontaneous Obeys [...] restrictions temporarily. NEXUS Head CT Instrument from [employer] on 05/20/2023 All calculations should be rechecked [...] Age >=5 years ?> 0 = No Thai CT Head Injury/Trauma Rule from [employer] on 05/20/2023 All calculations should be rechecked by clinician prior to use RESULT SUMMARY: CT Unnecessary The Thai Head CT Rule suggests a head CT [...] consciousness Instructions: ED Concussion Prescriptions: No Action auykwkrh-dgk-Xy-FA 1 mg capsule 1 mg capsule 1 [...] your Primary Care Provider. Call [facility] ([phone]) or report to the closest Emergency Room. Call 911 if necessary. 05/20/232235 <Electronically signed by Sam Pearl MD> Cosigner Signature (if applicable): CC: Dr. Ivette Grimes MD ~ Signed [facility] Work Phone: 1(819) 975-305007-14-2023 Instructions* Patient Instructions* Fatuma Beckford PA-C - [...] office for further instructions. documented in this encounterAdena Regional Medical Center07-14-2023 History of Present illness [...] days/month: 28 (672 headache-free hours) Migraine severity: 710 Patient reduction in overall migraine days: Yes [...] for migraine Informed Consent Consent Obtained: Written Chappell Protocol A moment to CARE was completed [...] applicable Written Consent Obtained: Written LOT #: [id number] Expiration Date: Month: 9 Year: 2024 Second vial: LOT #: [id number] Expiration Date: Month: 6 Year: 2024 Injection Sites Left (Units) Left (Sites) Right (Units) Right (Sites) TOTAL (Units) Pharmacy Scheduler 5 1 5 1 10 Procerus Units: [...] therapy. Fatuma Beckford PA-C documented in this encounterAdena Regional Medical Center07-05-2023 Miscellaneous Notes* Telephone Encounter [...] you. Lubna Yoon LPN documented in this encounterAdena Regional Medical Center06-02-2023 Miscellaneous Notes* Telephone Encounter [...] patient. Nirmala Storey LPN documented in this encounterAdena Regional Medical Center05-17-2023 Miscellaneous Notes* Telephone Encounter - Nakia Caraballo RN - 03/20/2023 12:38 PM EDT Botox renewal sent to pharmacy. Will schedule at [facility] once approved. Patient due 04/22/23. [facility] unchecked. Latonia Caraballo RN documented in this encounterAdena Regional Medical Center05-08-2023 Miscellaneous Notes* Telephone Encounter - Nakia Caraballo RN - 03/11/2023 11:01 AM EDT Patient is not due for botox until 04/22/23. Asked her which location she prefers so we can scheduleonce approved. Latonia Caraballo RN documented in this encounterAdena Regional Medical Center05-02-2023 Instructions* Patient Instructions* Fatuma Beckford PA-C - 03/05/2023 1:02 PM EDT Continue regimen Reach out with any new symptoms or worsening weakness Reach out to [facility] about moving botox Follow up with sleep provider in three months documented in this encounterAdena Regional Medical Center05-02-2023 History of Present illness [...] Each by INTRAUTERINE route as directed. Ipratropium Olney (ATROVENT) 0.03 % nasal spray Use 2 Sprays in the nose every 12 hours. Valentine-3 Fatty Acids (FISH OIL) 500 mg cap Take 1 capsule by mouth once daily. blood sugar diagnostic (BLOOD GLUCOSE TEST) test strip Test blood sugar(s) 1 times daily. Dx: Type 2 DM - Controlled E11.9 Insulin: Yes Lancets lancets Test blood sugar(s) 1 times daily. Dx: Type 2 DM - Controlled E11.9 Insulin: No Khotsqro-Qs-Utt-Fe-FA tab Take 1 tablet by mouth once daily. HISTORIES PAST MEDICAL HISTORY Diagnosis Date Acute cholecystitis Cholecystitis Anxiety 06/07/2014 Chronic back pain Kidney stones LETITIA treated with BiPAP Type 2 diabetes mellitus (HCC) FAMILY HISTORY Problem Relation Age of Onset Alcohol/Drug Mother Heart Father ND Cancer Father PANCREATIC CANCER Diabetes Father Coronary [...] dysarthria; comprehension, naming, repetition intact. Short and exterminator helper memory intact. CN: PERRL, EOMI and without [...] migraine, would like to go back to [facility], noted that I do botox in this [...] which included preparing to see the patient, glxd-es-djwf patient care, completing clinical documentation, obtaining and/or reviewing separately obtained history, performing a medically appropriate examination, counseling and educating the pat ient/family/caregiver, and ordering medications, tests, or procedures. This document has been created with the use of voice recognition technology. It may contain inaccuracies: (e.g. misspellings, inaccurate syntax or word sense) that have escaped review. 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 Please advise pt. Pharmacy is [facility]. Cary Goldsmith LPN documented in this encounterAdena Regional Medical Center04-28-2023 History of Present illness [...] appointment. Ivette Mejia MD documented in this encounterAdena Regional Medical Center04-28-2023 Miscellaneous Notes* Telephone Encounter - Anni Cueto - 03/01/2023 9:54 AM EDT PCP requesting the patient have a follow-up with MIKE. Spoke with the patient and she wasn't able to take the time available. The patient is scheduled for a follow-up appointment with the PA. The patient is aware of the appointment. documented in this encounterAdena Regional Medical Center04-27-2023 History of Present illness [...] Each by INTRAUTERINE route as directed. Ipratropium Olney (ATROVENT) 0.03 % nasal spray Use 2 Sprays in the nose every 12 hours. metroNIDAZOLE (METROGEL) 0.75 % Topical Gel Apply to affected area twice daily. Valentine-3 Fatty Acids (FISH OIL) 500 mg cap Take 1 capsule by mouth once daily. blood sugar diagnostic (BLOOD GLUCOSE TEST) test strip Test blood sugar(s) 1 times daily. Dx: Type 2 DM - Controlled E11.9 Insulin: Yes Lancets lancets Test blood sugar(s) 1 times daily. Dx: Type 2 DM - Controlled E11.9 Insulin: No Wgpvxwuz-Nd-Mxq-Fe-FA tab Take 1 tablet by mouth once [...] Age of Onset Alcohol/Drug Mother Heart Father ND Cancer Father PANCREATIC CANCER Diabetes Father Coronary [...] BLD Ivette Grimes MD documented in this encounterAdena Regional Medical Center04-27-2023 History of Present illness Narrative* Juliana Perez, RT(R) - 02/28/2023 8:00 AM EDT Radiology [...] 28, 2023 8:53 AM documented in this encounterAdena Regional Medical Center04-26-2023 Miscellaneous Notes* Telephone Encounter [...] the provider could send her something to [facility] pharmacy just to take for tomorrow. Please call and advise. documented in this encounterAdena Regional Medical Center04-24-2023 Miscellaneous Notes* Telephone Encounter [...] 02/28/23 Adriana Swanson MA documented in this encounterAdena Regional Medical Center04-14-2023 History of Present illness Narrative* Grace Coronel APRN.STEP DOWN SPECIALIST - 02/15/2023 3:32 PM EDT Images from [...] visit. Either the patient or their legal fraud representative has been informed of the risks [...] has been seeing a counselor at the [facility]. Has been working with him every 3 [...] which included preparing to see the patient, uqaq-gl-yzvo patient care, completing clinical documentation, and counseling and educating the patient/family/caregiver, ordering medications/labs, and communicating with other healthcare providers. Grace Coronel APRN.STEP DOWN SPECIALIST February 15, 2023 3:32 PM This note was partially generated using MyVerseon voice recognition system. Note was reviewed for accuracy. There may be minor misspellings or grammar miscues with Dragon voice recognition. documented in this encounterAdena Regional Medical Center04-12-2023 Miscellaneous Notes* Telephone Encounter - Nirmala Storey LPN - 02/13/2023 5:54 PM EDT CompassMD message sent to patient. * Telephone Encounter [...] of US head/neck soft tissue received from [facility] via fax. Results scanned into Epic. (May takea few minutes before viewable in Epic.) Quinn Lazo LPN documented in this encounterAdena Regional Medical Center04-10-2023 Miscellaneous Notes* Telephone Encounter - Quinn Lazo LPN - 02/11/2023 1:15 PM EDT Patient phones requesting refills as follows: Requested Prescriptions Pending Prescriptions Disp Refills tiZANidine (ZANAFLEX) 4 mg tablet 20 tablet 0 Sig: Take 1 tablet by mouth every 8 hours as needed. APRIL 01/31/23 NOV 02/28/23 Please review and advise. Quinn Lazo LPN documented in this encounterAdena Regional Medical Center03-30-2023 Miscellaneous Notes* Telephone Encounter - Juliana Murphy Ma - 01/31/2023 10:31 AM EDT Faxed order to [facility] per patient's request * Telephone Encounter - Ivette Grimes MD - 01/31/2023 9:44 AM EDT While here patient has noted an intermittent lump in left neck. Slightly sore to touch. Comes andgoes. Is a nonspecific swelling on left posterior neck. Not sure is related to her fall. Will run throughregular us. Set up us at [facility]. Will run through regular insurance. documented in this encounterAdena Regional Medical Center03-30-2023 History of Present illness [...] Each by INTRAUTERINE route as directed. Ipratropium Olney (ATROVENT) 0.03 % nasal spray Use 2 Sprays in the nose every 12 hours. metroNIDAZOLE (METROGEL) 0.75 % Topical Gel Apply to affected area twice daily. Valentine-3 Fatty Acids (FISH OIL) 500 mg cap Take 1 capsule by mouth once daily. blood sugar diagnostic (BLOOD GLUCOSE TEST) test strip Test blood sugar(s) 1 times daily. Dx: Type 2 DM - Controlled E11.9 Insulin: Yes Lancets lancets Test blood sugar(s) 1 times daily. Dx: Type 2 DM - Controlled E11.9 Insulin: No Cyavbrxy-Np-Hvy-Fe-FA tab Take 1 tablet by mouth once [...] Age of Onset Alcohol/Drug Mother Heart Father ND Cancer Father PANCREATIC CANCER Diabetes Father Coronary [...] above. Ivette Grimes MD documented in this encounterAdena Regional Medical Center03-23-2023 NoteHNO ID: [id number] Author: Gloria Oh MA Service: ? Author Type: Tool Planer Set Up Operator Type: Progress Notes Filed: 01/24/2023 11:07 AM [...] and suicidal ideas. The patient is not nervous/anxious.[facility]03-23-2023 History of Present illness Narrative* Gloria [...] not included. 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 For any anticoagulants, the patient was advised on whether to continue or hold for this procedure. The patient expressed understanding and gave verbal consent to proceed. Medications: Refill: Continue Gabapentin as directed (PCP manages) Functional [facility]: Continue PT and TENs unit for pain [...] [facility] documented in this encounterAdena Regional Medical Center03-21-2023 Instructions* Patient Instructions* Jenni Ledesma APRN.GABRIELA - [...] the next 5 days. documented in this encounterAdena Regional Medical Center03-21-2023 History of Present illness [...] for migraine Informed Consent Consent Obtained: Written [place]ell Protocol A moment to CARE was completed [...] applicable Written Consent Obtained: Written LOT #: [id number] Expiration Date: Month: 3 Year: 2024 Second vial: LOT #: [id number] Expiration Date: Month: 3 Year: 2024 Injection Sites Left (Units) Left (Sites) Right (Units) Right (Sites) TOTAL (Units) Pharmacy Scheduler 5 1 5 1 10 Procerus Units: [...] Amitriptyline Propranolol Topiramate/ Trokendi XL Jenni Ledesma APRN.STEP DOWN SPECIALIST Attestation: I have reviewed the clinical details [...] recommendations. Karen Bansal APRN.CNP documented in this encounterAdena Regional Medical Center03-16-2023 History of Past illness [...] of this encounter (statuses as of 12/10/2023) [facility] of Past illness [...] of this encounter (statuses as of 12/10/2023) [facility]03-[facility] History of Past illness [...] of this encounter (statuses as of 12/26/2023) [facility]03-[facility] History of Past illness [...] of this encounter (statuses as of 01/02/2024) [facility]03-[facility] History of Past illness [...] of this encounter (statuses as of 01/15/2024) [facility]03-[facility] History of Past illness [...] of this encounter (statuses as of 01/23/2024) [facility]03-[facility] History of Present illness [...] to return to her second job at [employer] for one night and 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 She feels like the back of her neck feels off. No cough or congestion. No sore throat or fever. Had a cold last week. Now better. MRI still not approved. She spoke with Kyron who states a C9 needs completed specifically [...] Each by INTRAUTERINE route as directed. Ipratropium Olney (ATROVENT) 0.03 % nasal spray Use 2 Sprays in the nose every 12 hours. Valentine-3 Fatty Acids (FISH OIL) 500 mg cap Take 1 capsule by mouth once daily. blood sugar diagnostic (BLOOD GLUCOSE TEST) test strip Test blood sugar(s) 1 times daily. Dx: Type 2 DM - Controlled E11.9 Insulin: Yes Lancets lancets Test blood sugar(s) 1 times daily. Dx: Type 2 DM - Controlled E11.9 Insulin: No Prtfqsxg-As-Oma-Fe-FA tab Take 1 tablet by mouth once [...] Age of Onset Alcohol/Drug Mother Heart Father ND Cancer Father PANCREATIC CANCER Diabetes Father Coronary [...] S19.9XXD Ivette Grimes MD documented in this encounterAdena Regional Medical Center03-14-2023 NoteHNO ID: [id number] Author: Elle Sanchez MD Service: ? 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03-10-2023 Miscellaneous Notes* Telephone Encounter - Nirmala Storey LPN - 01/11/2023 4:42 PM EST Request is closed. An override is in effect until 01/09/24. * Telephone Encounter - Mirna Santos Ma - 01/08/2023 4:55 PM EST PA was submitted through rx benefits Mirna Santos Ma documented in this encounterAdena Regional Medical Center03-09-2023 Miscellaneous Notes* Telephone Encounter - Nirmalazackary Rodgersmayelin SÁNCHEZ - 01/10/2023 2:16 PM EST Patient has been identified by name and date of : Yes Requested Prescriptions Pending Prescriptions Disp Refills tiZANidine (ZANAFLEX) 4 mg tablet 20 tablet 0 Sig: Take 1 tablet by mouth every 8 hours as needed. RX INSTRUCTIONS: Patient aware RX will be sent to pharmacy. No need to notify patient. Nirmala Rodgersmayelin SÁNCHEZ documented in this encounterAdena Regional Medical Center03-03-2023 History of Present illness [...] Each by INTRAUTERINE route as directed. Ipratropium Olney (ATROVENT) 0.03 % nasal spray Use 2 Sprays in the nose every 12 hours. metroNIDAZOLE (METROGEL) 0.75 % Topical Gel Apply to affected area twice daily. Valentine-3 Fatty Acids (FISH OIL) 500 mg cap Take 1 capsule by mouth once daily. blood sugar diagnostic (BLOOD GLUCOSE TEST) test strip Test blood sugar(s) 1 times daily. Dx: Type 2 DM - Controlled E11.9 Insulin: Yes Lancets lancets Test blood sugar(s) 1 times daily. Dx: Type 2 DM - Controlled E11.9 Insulin: No Xliwtxqu-Td-Eex-Fe-FA tab Take 1 tablet by mouth once [...] Age of Onset Alcohol/Drug Mother Heart Father ND Cancer Father PANCREATIC CANCER Diabetes Father Coronary [...] R51.9 Ivette Grimes MD documented in this encounterAdena Regional Medical Center02-28-2023 Miscellaneous Notes* Telephone Encounter - Juliana Murphy Ma - 01/01/2023 3:02 PM EST Patient never checked in for her appointments as workers comp. Sent visits to [facility] to have C9 created and faxed to [...] resubmit. Hailey Leone LPN documented in this encounterAdena Regional Medical Center02-23-2023 Miscellaneous Notes* Telephone Encounter - Anni Cueto - 12/27/2022 2:22 PM EST Received the [facility] C9 form. The patient was seen on 12/07/2022. The appointment was attached to the patient's insurance not a WC claim. Spoke with the patient and was given the information. PCP Dr. Grimes is the physican of records per the patient. Claim# [id number] Date of injury: 11/24/2022 Nolberto Walden RN [phone] Case management: Cristina # [phone] Left Cristina a message to fax information and to call the office. Requested WC report and DX allowed * Telephone Encounter - Jovana Blackwell MA - 12/26/2022 2:12 PM EST Spoke to [facility]. Will send OV note to complete authorization of MRI order/payment of visit to [phone]. Iram is sending c9 form for provider to complete. Gave form to Anni Sauceda per Dr. Mejia's instructions. Jovana Blackwell MA * Telephone Encounter - Jovana Blackwell MA - 12/25/2022 10:18 AM EST TC to [facility]. Unable to reach. Left detailed message on VM to return call to office & ask for atriage nurse. Please transfer to neurology back line at ext. [phone]. Jovana Blackwell MA * Telephone Encounter - Marilynn Frank LPN - 12/24/2022 3:28 PM EST Patient calling said her MRI's need to be prior authorized with Concetta Amanda. Person name is lawrence number is [phone] works 8 am to 430 pm and fax number is [phone]. Patient claim number is [id number]. documented in this encounterAdena Regional Medical Center02-22-2023 Miscellaneous Notes* Telephone Encounter - Quinn Lazo LPN - 12/26/2022 11:41 AM EST Patient phones requesting refills as follows: Requested Prescriptions Pending Prescriptions Disp Refills tiZANidine (ZANAFLEX) 4 mg tablet 20 tablet 0 Sig: Take 1 tablet by mouth every 8 hours as needed. APRIL 12/26/22 NOV 01/04/23 Please review and advise. Quinn Lazo LPN documented in this encounterAdena Regional Medical Center02-22-2023 History of Present illness [...] Each by INTRAUTERINE route as directed. Ipratropium Olney (ATROVENT) 0.03 % nasal spray Use 2 [...] 2 DM - Controlled E11.9 Insulin: No Usujwczb-Us-Pmg-Fe-FA tab Take 1 tablet by mouth once daily. Valentine-3 Fatty Acids (FISH OIL) 500 mg cap [...] Age of Onset Alcohol/Drug Mother Heart Father ND Cancer Father PANCREATIC CANCER Diabetes Father Coronary [...] until 01/07. 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 Recheck in one week. 2. Essential (primary) hypertension - ICD9: 401.9, ICD10: I10 - good control - Continue current medication(s) - Goal of BP <130/80 Ivette Grimes MD documented in this encounterAdena Regional Medical Center02-20-2023 Miscellaneous Notes* Telephone Encounter - Nakia Caraballo RN - 12/24/2022 5:22 PM EST Last OV: 07/19/22 Last Refill: 08/03/22 FU OV: 01/22/23 Appropriate for refill routed to for review Latonia Caraballo RN documented in this encounterAdena Regional Medical Center02-10-2023 History of Present illness [...] waiting to schedule those. Conflicts over at [facility] with workers comp. Injury that prompted symptoms [...] Each by INTRAUTERINE route as directed. Ipratropium Olney (ATROVENT) 0.03 % nasal spray Use 2 Sprays in the nose every 12 hours. metroNIDAZOLE (METROGEL) 0.75 % Topical Gel Apply to affected area twice daily. Valentine-3 Fatty Acids (FISH OIL) 500 mg cap [...] 2 DM - Controlled E11.9 Insulin: No Luuzaizn-Ze-Tgu-Fe-FA tab Take 1 tablet by mouth once [...] Age of Onset Alcohol/Drug Mother Heart Father ND Cancer Father PANCREATIC CANCER Diabetes Father Coronary [...] RTO in two weeks. documented in this encounterAdena Regional Medical Center02-07-2023 Miscellaneous Notes* Telephone Encounter - Ingrid Salmon Ma - 12/11/2022 9:55 AM EST Last office visit: 12/07/22 F/u scheduled: 12/14/22 Ingrid Salmon Ma documented in this encounterAdena Regional Medical Center02-03-2023 History of Present illness [...] view their previous records. documented in this encounterAdena Regional Medical Center02-03-2023 History of Present illness [...] BP. Check CMP and CBC due to fdc med use. 3. LETITIA (obstructive sleep apnea) [...] when sleepy. 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 Patient now referred for NEW complaint of head trauma. ER notes and PCP notes reviewed. Per PCP note of 11/27/22: Patient presents today for office visit for ER F/U from [facility] 11/24/22. Head injury after fall. Cleaning bed [...] Appears pt had CT brain x2 at [facility] that were both unremarkable. Pt also previously referred to headache center to perform botox -- scheduled to get injections by January 2023. Note records show that pt has seen cards (EP) for QT prolongation concerns. Pt states on 11/24/22 was working at [facility] was doing a discharge, when bedside rail [...] Each by INTRAUTERINE route as directed. Ipratropium Olney (ATROVENT) 0.03 % nasal spray Use 2 Sprays in the nose every 12 hours. blood sugar diagnostic (BLOOD GLUCOSE TEST) test strip Test blood sugar(s) 1 times daily. Dx: Type 2 DM - Controlled E11.9 Insulin: Yes Lancets lancets Test blood sugar(s) 1 times daily. Dx: Type 2 DM - Controlled E11.9 Insulin: No Jtamygxn-Nd-Mgq-Fe-FA tab Take 1 tablet by mouth once daily. metroNIDAZOLE (METROGEL) 0.75 % Topical Gel Apply to affected area twice daily. (Patient not taking: Reported on 12/07/2022) Valentine-3 Fatty Acids (FISH OIL) 500 mg cap Take 1 capsule by mouth once daily. (Patient taking differently: Take 1 tablet by mouth once daily. 1200 mg) HISTORIES PAST MEDICAL HISTORY Diagnosis Date Acute cholecystitis Cholecystitis Anxiety 06/07/2014 Chronic back pain Kidney stones LETITIA treated with BiPAP Type 2 diabetes mellitus (HCC) FAMILY HISTORY Problem Relation Age of Onset Alcohol/Drug Mother Heart Father ND Cancer Father PANCREATIC CANCER Diabetes Father Coronary [...] which included preparing to see the patient, rutb-yj-tpeo patient care, completing clinical documentation, obtaining and/or reviewing separately obtained history, performing a medically appropriate examination, counseling and educating the pat ient/family/caregiver, ordering medications, tests, or procedures, and communicating results to thepatient/family/caregiver. documented in this encounterAdena Regional Medical Center01-31-2023 Miscellaneous Notes* Telephone Encounter - Marilynn Frank LPN - 12/04/2022 9:52 AM EST [employer] from [facility] calling asking for copy of 11/27/2022 office visit notes and copy of letter off work to be faxed to [phone] with claim number [id number]. Printed and faxed as requested. documented in this encounterAdena Regional Medical Center01-30-2023 Miscellaneous Notes* Telephone Encounter [...] agreeable. Mechelle Velasquez RN documented in this encounterAdena Regional Medical Center01-27-2023 History of Present illness [...] Each by INTRAUTERINE route as directed. Ipratropium Olney (ATROVENT) 0.03 % nasal spray Use 2 Sprays in the nose every 12 hours. metroNIDAZOLE (METROGEL) 0.75 % Topical Gel Apply to affected area twice daily. Valentine-3 Fatty Acids (FISH OIL) 500 mg cap [...] 2 DM - Controlled E11.9 Insulin: No Owiyehzy-Cc-Uxm-Fe-FA tab Take 1 tablet by mouth once [...] Age of Onset Alcohol/Drug Mother Heart Father ND Cancer Father PANCREATIC CANCER Diabetes Father Coronary [...] ICD10: S06.0X9A Ivette Grimes documented in this encounterAdena Regional Medical Center01-26-2023 Miscellaneous Notes* Telephone Encounter [...] her appointment for 12/05/22 with you in [place] as she is not sure if this will effect her. Please advise. Darrion Shah documented in this encounterAdena Regional Medical Center01-24-[address] Callejas [facility] November 27, 2022 6:34pm Note Date/Time November 27, 2022 3 :56pm [facility] Medical Records Department [address] [place] [address] Emergency Department Summary 11/27/22 MR#: [id number] Acct: [id number] Name: TORI GRAY Rep #:[id number] : 1980 42 From: Tod Callejas MD [...] other symptoms consistent with a viral illness. [facility] Medical History Acute bronchitis Acute cholecystitis Acute [...] #10 ea 04/26/20 [History Last Taken Unknown] itpjbuhg-ujy-Ip-FA 1 mg capsule 1 cap PO DAILY [...] concussion Instructions: ED Concussion Prescriptions: No Action qiceyorp-bxz-Dk-FA 1 mg capsule 1 mg capsule 1 [...] your Primary Care Provider. Call [facility] ([phone]) or report to the closest Emergency Room. Call 911 if necessary. 11/27/22 1834 <Electronically signed by Tod Callejas MD> Cosigner Signature (if applicable): CC: Dr. Ivette Grimes MD ~ Signed [facility] Work Phone: 1(468) 979-307901-24-2023 History of Present illness Narrative* Ivette Grimes MD - 11/27/2022 1:48 PM EST Patient presents with: ER F/U HPI: Patient presents today for office visit for ER F/U from [facility] 11/24/22. Head injury after fall. Cleaning bed [...] Each by INTRAUTERINE route as directed. Ipratropium Olney (ATROVENT) 0.03 % nasal spray Use 2 Sprays in the nose every 12 hours. metroNIDAZOLE (METROGEL) 0.75 % Topical Gel Apply to affected area twice daily. Valentine-3 Fatty Acids (FISH OIL) 500 mg cap [...] 2 DM - Controlled E11.9 Insulin: No Nqnlfpkl-We-Usx-Fe-FA tab Take 1 tablet by mouth once [...] Age of Onset Alcohol/Drug Mother Heart Father ND Cancer Father PANCREATIC CANCER Diabetes Father Coronary [...] S06.0X9A Ivette Grimes MD documented in this encounterAdena Regional Medical Center01-20-2023 Miscellaneous Notes* Telephone Encounter - Quinn Redkarin SÁNCHEZ - 11/23/2022 9:15 AM EST Patient phones [...] advise. Quinn Lazo LPN documented in this encounterAdena Regional Medical Center01-12-2023 Miscellaneous Notes* Telephone Encounter - Jumana Harrell LPN - 11/15/2022 8:34 AM EST Patient phones requesting refills as follows: Requested Prescriptions Pending Prescriptions Disp Refills tiZANidine (ZANAFLEX) 4 mg tablet 20 tablet 0 Sig: Take 1 tablet by mouth every 8 hours as needed. APRIL-09/04/22 Labs-09/06/22 NOV-12/06/22 med filled 10/05/22 Please review and advise. Jumana Harrell LPN documented in this encounterAdena Regional Medical Center01-05-2023 NoteHNO ID: [id number] Author: Adelina Mason APRN.STEP DOWN SPECIALIST Service: ? Author Type: Nurse Practitioner Type: Progress Notes Filed: 11/08/2022 1:55 PM Note Text: [facility] [place] [facility] Today's Date: 11/08/2022 Last Visit: 07/19/22 [...] fevers, chills, or night sweats. Recall: SE mary Johnston Current Status: INTAKE PAIN ASSESSMENT 10/31/2022 11/08/2022 [...] activity was identified. 11/08/2022 by Adelina Mason APRN.STEP DOWN SPECIALIST Allergies: ALLERGIES Allergen Reactions Lidocaine Hives Steroids [...] pain (primary encounter deepali (more content not included)...[facility] 11-08-2022 NoteHNO ID: [id number] Author: Gloria Oh MA Service: ? Author Type: Tool Planer Set Up Operator Type: Progress Notes Filed: 11/08/2022 1:55 PM [...] and suicidal ideas. The patient is not nervous/anxious.[facility]01-05-2023 Miscellaneous Notes* Telephone Encounter - Vito PaLidia - 11/08/2022 2:03 PM EST Procedure(s) being [...] No 9. Does this procedure require a furniture mover driver? Yes If yes, has patient been notified that a furniture mover driver is needed and must be present [...] COVID vaccine.) Vito Mancera documented in this encounterAden[facility]23 Instructions* Patient Instructions* Adelina Mason APRN.CNP - 11/08/2022 1:54 PM EST Activity as tolerated Use Ice and/or heat as tolerated as needed documented in this encounterAdena Regional Medical Center01-05-2023 History of Present illness Narrative* Adelina Mason APRN.CNP - 11/08/2022 1:30 PM EST Images from the original note were not included. [facility] [place] [facility] Today's Date: 11/08/2022 Last Visit: 07/19/22 [...] suspiciousactivity was identified. 11/08/2022 by Adelina Mason APRN.STEP DOWN SPECIALIST Allergies: ALLERGIES Allergen Reactions Lidocaine Hives Steroids [...] Continue Gabapentin as directed (PCP manages) Functional [facility]: Continue PT and TENs unit for pain [...] APRN.GABRIELA Pain [facility] * Gloria [place] [...] patient is not nervous/anxious. documented in this encounterAdena Regional Medical Center12-09-2022 Instructions* Patient Instructions* Grace Coronel APRN.STEP DOWN SPECIALIST - 10/12/2022 9:28 AM EST Power Monge, [...] - Call the National Suicide Hotline at 3-064-DCOQLAR ( ) or 9-709-262-TALK (4888) - Text 4BYIA to 302146 Medication Update: - Prozac 10 mg - take 1 capsule once daily for 7 days; then take 2 capsules once daily after that. Next appointment: --Schedule in 4 to 6 weeks or sooner if needed -- You may call the department appointment line at [phone] to schedule your appointment. -- Please call my nurse Coretta at [phone] or send me a message in [employer] with any questions or concerns between appointments. documented in this encounterAdena Regional Medical Center12-09-2022 History of Present illness [...] her. They get along well. 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 REFERRAL SOURCE: PCP - [...] report that daughter has support from her hatchery employee and therapist and has been doing better. [...] current PAP mask.) 1 Device 99 Ipratropium Ol[place] (ATROVENT) 0.03 % nasal spray Use 2 Sprays in the nose every 12 hours. 1 Bottle2 metroNIDAZOLE (METROGEL) 0.75 % Topical Gel Apply to affected area twice daily. 45 g 2 Valentine-3 Fatty Acids (FISH OIL) 500 mg cap Take 1 capsule by mouth once daily. 30 capsule 11 blood sugar diagnostic (BLOOD GLUCOSE TEST) test strip Test blood sugar(s) 1 times daily. Dx: Type 2 DM - Controlled E11.9 Insulin: Yes 50 Strip 11 Lancets lancets Test blood sugar(s) 1 times daily. Dx: Type 2 DM - Controlled E11.9 Insulin: No 100Each 11 Yhyhfkhu-Co-Ano-Fe-FA tab Take 1 tablet by mouth once daily. 0 No current facility-administered medications for this visit. VITAL SIGNS: There were no vitals filed for this visit. ROS: All other systems negative. PSYCHIATRIC HISTORY: Prior Diagnosis: Generalized Anxiety Disorder, and Depression Prior Provider: No prior psychiatrist Therapist: Previously followed at the counseling center. Stopped during the pandemic. Current Retail Security Professional: No Last Hospitalization: Denies hospitalization. ECT: No Previous Discontinued Psychiatric Med Trials: Ativan as needed PRN. Paxil, Buspar (low dose), Wellbutrin SUBSTANCE USE HISTORY: Nicotine: None Caffeine: Mert, 1/day Alcohol: No history of use or dependence Marijuana: No history of use or dependence Cocaine: No history of use or dependence Opiods: No history of use or dependence SPIRITUALITY: Tenriism [facility]: Tori Gray is the oldest of 2 siblings. Her brother lives in [place]. The patient was born in [place] and raised in [place], [place]. She completed Associates degree in psychology. [...] which included preparing to see the patient, eljl-hc-ujyg patient care, completing clinical documentation, obtaining and/or reviewing separately obtained history, counseling and educating the patient/family/caregiver, ordering medications, ananth ts, or procedures, communicating with other HCPs (not separately reported), and independently interpreting results (not separately reported). ADD ON PSYCHOTHERAPY CODE : No SIGNATURE: Grace Coronel APRN.CNP PATIENT NAME: Tori Gray DATE: October 12, 2022 TIME: 8:40 AM PAGER : documented in this encounterAdena [facility] Medical Center12-06-2022 Miscellaneous Notes* Telephone Encounter - LEVAR Jasmine - 10/09/2022 8:44 AM EST Patient has been identified by name and date of : Yes Patient phones for refill(s): Requested Prescriptions Pending Prescriptions Disp Refills topiramate (TOPAMAX) 100 mg tablet 60 tablet 2 Sig: Take 1 tablet by mouth twice daily. Date of last office visit in primary care: [facility] 07/19/2022 with Karen Bansal APRN.CNP No appointment scheduled [facility] Notes: Plan: All options for treatment [...] Thank you. LEVAR Jasmine documented in this encounterAdena Regional Medical Center12-02-2022 Miscellaneous Notes* Telephone Encounter - Quinn Lazo LPN - 10/05/2022 8:41 AM EST Patient phones requesting refills as follows: Requested Prescriptions Pending Prescriptions Disp Refills tiZANidine (ZANAFLEX) 4 mg tablet 20 tablet 0 Sig: Take 1 tablet by mouth every 8 hours as needed. APRIL 09/04/22 NOV 11/01/22 Please review and advise. Quinn Lazo LPN documented in this [facility]11-29-2022 Miscellaneous Notes* Telephone Encounter - Adriana Licona - 10/02/2022 11:32 AM EST Patient was called back and spoke with and scheduled with Adelina in [place] beginning of the year. Adriana Licona * Telephone Encounter - Adriana Licona - 10/02/2022 11:22 AM EST Patient called in leaving a voicemail stating she had an appointment with Adelina back in Jul. Insurance denied the RFA and was needing to finds out what else she can do? Adriana Licona documented in this [facility]11-16-2022 Miscellaneous Notes* Telephone Encounter - Lubna [...] you. Lubna Yoon LPN documented in this encounterAdena Regional Medical Center11-09-2022 History of Present illness Narrative* WELLINGTON Fine - 09/12/2022 1:57 PM EST BEHAVIORAL HEALTH SOCIAL WORK QUICK NOTE Provider Action/FYI Needs appointment scheduled with Grace Coronel CNP. Will forward chart to Grace and her LOGISTICS PLANNING ENGINEER to assist with scheduling. Patient identified for [facility] from: PCP Reason for referral: [facility] Resources: Psychiatry med management;Psychology - talk therapy [facility] encounter type: Chart Review Attempts to Outreach: 1 attempt Referral made: Psychiatry - Internal;Psychology - External;Psychology - Internal Psychiatry-Internal referral type: Medication Management Psychology-Internal referral type: Therapy Psychology-External referral type: Therapy Reason for external referral: Wait times at [facility] too long Final Disposition: Resources given Patient Discharged?: Yes Patient reported that caregiver was able to meet their needs today?: N/A Pt identified by name and . Patient [facility], specifically Grace Coronel CNP at therequest of pt's PCP. SW will route chart to Grace and her nurse, Coretta Spain who can assist with patient scheduling. Patient states she's on a wait list for counseling at agencies near her home. No needs further from this SW at this time. WELLINGTON Fine, AC- documented in this encounterAdena [facility] Medical Center11-09-2022 Miscellaneous Notes* Addendum Note - Ivette Grimes MD - 09/12/2022 1:19 PM ESTAddended by: IVETTE GRIMES on: 09/12/2022 01:19 PM Modules accepted: Orders * Telephone Encounter - Ivette Grimes MD - 09/12/2022 1:18 PM EST Needs set up with Grace documented in this encounterAdena Regional Medical Center11-03-2022 Miscellaneous Notes* Telephone Encounter - Nakia Caraballo RN - 09/06/2022 12:44 PM EDT Patient is scheduled for botox on 09/13/22 at 1:30 pm with Kaylen. Latonia Caraballo RN documented in this encounterAdena Regional Medical Center11-01-2022 Miscellaneous Notes* Telephone Encounter - Jovana Blackwell MA - 09/04/2022 3:01 PM EDT Clarified with patient [facility] will be receiving 2 new providers able to administer injections. Patient will continue with plan to stay within [facility] for injections & just follow up in [place] when neuro providers are available to schedule. Jovana Blackwell MA documented in this encounterAdena [facility] Medical Center11-01-2022 History of Past illness [...] of this encounter (statuses as of 09/04/2022) [facility] of [facility] illness [...] of this encounter (statuses as of 09/04/2022) [facility] of Past illness [...] of this encounter (statuses as of 09/06/2022) [facility] of Past illness [...] of this encounter (statuses as of 09/07/2022) [facility] of Past illness [...] of this encounter (statuses as of 09/12/2022) [facility] of Past illness [...] of this encounter (statuses as of 09/12/2022) [facility] of Past illness [...] of this encounter (statuses as of 09/12/2022) [facility] of Past illness [...] of this encounter (statuses as of 09/19/2022) [facility] of Past illness [...] of this encounter (statuses as of 10/02/2022) [facility] History of Past illness [...] of this encounter (statuses as of 10/05/2022) [facility] of Past illness [...] of this encounter (statuses as of 10/09/2022) [facility] of Past illness [...] of this encounter (statuses as of 10/18/2022) [facility] of Past illness [...] of this encounter (statuses as of 10/21/2022) [facility] of Past illness [...] of this encounter (statuses as of 11/09/2022) [facility] of Past illness [...] of this encounter (statuses as of 11/15/2022) [facility] of Past illness [...] of this encounter (statuses as of 11/21/2022) [facility] of Past illness [...] of this encounter (statuses as of 11/23/2022) [facility] of Past illness [...] of this encounter (statuses as of 11/27/2022) [facility] of Past illness [...] of this encounter (statuses as of 11/29/2022) [facility] of Past illness [...] of this encounter (statuses as of 11/30/2022) [facility] of Past illness [...] of this encounter (statuses as of 12/04/2022) [facility] of Past illness [...] of this encounter (statuses as of 12/08/2022) [facility] of [facility] illness [...] infection 09/04/2022 09/04/2022 Low back pain, unspecified 04/17/202209/042 Segmental and somatic dysfunction 04/17/2022 09/04/2022 Nausea, [...] of this encounter (statuses as of 12/08/2022) [facility] of Past illness Narrative* Problem Noted Date Resolved Date Chest pain 09/04/2022 09/04/2022 Contusion of knee 09/04/2022 09/04/2022 Fall 09/04/2022 09/04/2022 Headache 09/04/2022 09/04/2022 History of type 2 diabetes mellitus 09/04/2022 09/04/2022 Muscle pain 09/04/2022 09/04/2022 Pain of left scapula 09/04/2022 09/04/2022 Shortness of breath 09/04/2022 09/04/2022 Type 2 diabetes mellitus with hyperglycemia 1111/202109/04/2022 Upper respiratory tract infection 09/04/2022 09/04/2022 Viral [...] of this encounter (statuses as of 12/11/2022) [facility] illness [...] of this encounter (statuses as of 12/11/2022) [facility] of Past illness [...] of this encounter (statuses as of 12/14/2022) [facility] of Past illness [...] of this encounter (statuses as of 12/21/2022) [facility] of Past illness [...] of this encounter (statuses as of 12/25/2022) [facility] of Past illness [...] of this encounter (statuses as of 12/26/2022) [facility] of Past illness [...] of this encounter (statuses as of 12/26/2022) [facility] of Past illness [...] of this encounter (statuses as of 01/04/2023) [facility] of Past illness [...] of this encounter (statuses as of 01/07/2023) [facility] of Past illness [...] of this encounter (statuses as of 01/10/2023) [facility] of Past illness [...] of this encounter (statuses as of 01/11/2023) [facility] of Past illness [...] of this encounter (statuses as of 01/15/2023) [facility] of Past illness [...] of this encounter (statuses as of 01/17/2023) [facility] of Past illness [...] of this encounter (statuses as of 01/22/2023) [facility] of Past illness [...] of this encounter (statuses as of 01/24/2023) [facility] of Past illness [...] of this encounter (statuses as of 01/31/2023) [facility] of Past illness [...] of this encounter (statuses as of 01/31/2023) [facility] of Past illness [...] of this encounter (statuses as of 02/11/2023) [facility] Past illness [...] of this encounter (statuses as of 02/14/2023) [facility] Past illness [...] of this encounter (statuses as of 02/16/2023) [facility] of Past illness [...] of this encounter (statuses as of 02/25/2023) [facility] of Past illness [...] of this encounter (statuses as of 02/27/2023) [facility] of Past illness [...] of this encounter (statuses as of 02/28/2023) [facility] Past illness [...] of this encounter (statuses as of 03/01/2023) [facility] Past illness [...] of this encounter (statuses as of 03/01/2023) [facility] of Past illness [...] of this encounter (statuses as of 03/04/2023) [facility] of Past illness [...] of this encounter (statuses as of 03/05/2023) [facility] Past illness [...] of this encounter (statuses as of 03/05/2023) [facility] of Past illness [...] of this encounter (statuses as of 03/05/2023) [facility] of Past illness [...] of this encounter (statuses as of 03/13/2023) [facility] of Past illness [...] of this encounter (statuses as of 03/20/2023) [facility] Past illness [...] of this encounter (statuses as of 03/20/2023) [facility] of Past illness [...] of this encounter (statuses as of 04/05/2023) [facility] of Past illness [...] of this encounter (statuses as of 05/08/2023) [facility] of Past illness [...] of this encounter (statuses as of 05/17/2023) [facility] of Past illness [...] of this encounter (statuses as of 05/29/2023) [facility] of Past illness [...] of this encounter (statuses as of 05/30/2023) [facility] of Past illness [...] of this encounter (statuses as of 06/06/2023) [facility] of Past illness [...] of this encounter (statuses as of 06/08/2023) [facility] Past illness [...] of this encounter (statuses as of 06/10/2023) [facility] Past illness [...] of this encounter (statuses as of 06/22/2023) [facility] of Past illness [...] of this encounter (statuses as of 07/05/2023) [facility] of Past illness [...] of this encounter (statuses as of 07/09/2023) [facility] of Past illness [...] of this encounter (statuses as of 08/23/2023) [facility] of Past illness [...] of this encounter (statuses as of 08/26/2023) [facility] Past illness [...] of this encounter (statuses as of 09/08/2023) [facility] of Past illness [...] of this encounter (statuses as of 09/10/2023) [facility] of Past illness [...] of this encounter (statuses as of 09/25/2023) [facility] Past illness [...] of this encounter (statuses as of 10/14/2023) [facility] of Past illness [...] of this encounter (statuses as of 10/15/2023) [facility] of Past illness [...] of this encounter (statuses as of 10/16/2023) [facility] of Past illness [...] of this encounter (statuses as of 12/06/2023) [facility] Instructions* Patient Instructions* Ivette Grimes MD - 09/04/2022 12:13 PM EDT Counseling and Psychiatry Services [facility] [address] [place] [address] *counseling [facility] [address] [facility], [facility] [address] *counseling [facility] [address] [place] [address] *counseling [facility] [address] [place], [place] [address] *counseling and psychiatry [address] [place] [address] *counseling [address] [address] *counseling [address] [phone] *counseling [facility] [address] [place] [phone] *counseling [facility] [address] [place], [place] [id number] [facility] [address] [facility] [address] [place] [address] *counseling [facility] [address] [place] [address] [employer] [address] [place], [place] [address] *counseling Rosio Chatman [facility] [address] [facility] [address] [place] [address] [facility] [address] [place] [address] *counseling [employer] [address] [facility] [place] [address] *counseling [facility] [address] [place] [address] *counseling and psychiatry [facility] [place], [facility] [address] [place], [place] [id number] *psychiatry [facility] [phone] *grief counseling, individual and groups *If you ever experience a mental health crisis please call [phone], 911, Please verify with insurance provider for coverage Provide services on a sliding fee scale for [facility]. [employer] [facility] [address] [place] [address] *Counseling [facility] [address] [place], [place] [address] *Counseling, Psychiatry and Case Management [address] [place] [address] *Counseling [facility] [address] [place] [address] *Counseling [facility] [address] [place], [place] [phone] *Counseling [facility] [address] [place] [address] *Counseling [facility] [address] [place], [place] [id number] *Counseling/mental health and substance use treatment [employer] [facility] [address] [place], [place] [address] [facility] [address] [place], [place] [address] [facility] [address] [facility] [place], [place] [id number] *Addiction services, services for victims of domestic violence and sexual assault, housing services [facility] -safe, alcohol and drug free environment [facility] [phone] *free grief services, individual and group *If you ever experience a mental health crisis please contact [phone], 911 or go to the nearest ER. Please verify with insurance provider for coverage documented in this encounterAdena [facility] Medical Center11-01-2022 History of Present illness [...] for depression. Was seen by cardiology in [place] who referred her to EPS. Appt is [...] in bed with current PAP mask. Ipratropium [place] (ATROVENT) 0.03 % nasal spray Use 2 Sprays in the nose every 12 hours. metroNIDAZOLE (METROGEL) 0.75 % Topical Gel Apply to affected area twice daily. Valentine-3 Fatty Acids (FISH OIL) 500 mg cap Take 1 capsule by mouth once daily. blood sugar diagnostic (BLOOD GLUCOSE TEST) test strip Test blood sugar(s) 1 times daily. Dx: Type 2 DM - Controlled E11.9 Insulin: Yes Lancets lancets Test blood sugar(s) 1 times daily. Dx: Type 2 DM - Controlled E11.9 Insulin: No Abofpohx-Gj-Nkt-Fe-FA tab Take 1 tablet by mouth once [...] Age of Onset Alcohol/Drug Mother Heart Father ND Cancer Father PANCREATIC CANCER Diabetes Father Diabetes [...] treatment. Ivette Grimes MD documented in this encounterAdena Regional Medical Center10-31-2022 History of Present illness [...] in bed with current PAP mask. Ipratropium [place] (ATROVENT) 0.03 % nasal spray Use 2 Sprays in the nose every 12 hours. metroNIDAZOLE (METROGEL) 0.75 % Topical Gel Apply to affected area twice daily. Valentine-3 Fatty Acids (FISH OIL) 500 mg cap Take 1 capsule by mouth once daily. blood sugar diagnostic (BLOOD GLUCOSE TEST) test strip Test blood sugar(s) 1 times daily. Dx: Type 2 DM - Controlled E11.9 Insulin: Yes Lancets lancets Test blood sugar(s) 1 times daily. Dx: Type 2 DM - Controlled E11.9 Insulin: No Rmbuzcda-Gv-Muz-Fe-FA tab Take 1 tablet by mouth once [...] Age of Onset Alcohol/Drug Mother Heart Father ND Cancer Father PANCREATIC CANCER Diabetes Father Diabetes [...] in am in person documented in this encounterAdena [facility] Medical Center10-18-2022 Miscellaneous Notes* Telephone Encounter - Nakia Caraballo RN - 08/21/2022 1:02 PM EDT Botox approved 08/15/22-01/30/23. Patient made aware that we will get her scheduled. Latonia Caraballo RN documented in this encounterAdena Regional Medical Center10-05-2022 Miscellaneous Notes* Telephone Encounter [...] place the order. Thank you, Adelina Mason APRN.STEP DOWN SPECIALIST documented in this encounterAdena Regional Medical Center10-05-2022 Miscellaneous Notes* Telephone Encounter - Brittney Cueto - 08/08/2022 10:08 AM EDT Spoke with the patient she has not heard back from [facility] [facility] will try them again if not able to reach them she will call [facility] back to schedule. documented in this encounterAdena Regional Medical Center09-30-2022 Miscellaneous Notes* Telephone Encounter - Karen Bansal APRN.CNP - 08/03/2022 10:33 AM EDT Rizatriptan sent to pharmacy. Stop sumatriptan. * Telephone Encounter - Nakia Caraballo RN - 08/03/2022 9:03 AM EDT Patient reporting that sumatriptan is not helping migraines. Asking for another treatment. Botox referral was sent but still pending. Latonia Caraballo RN documented in this encounterAdena Regional Medical Center09-29-2022 History of Present illness [...] her cpap. Needs new machine. Sees her icu tech soon. . Will be seeing cardiology. Had [...] in bed with current PAP mask. Ipratropium [place] (ATROVENT) 0.03 % nasal spray Use 2 Sprays in the nose every 12 hours. metroNIDAZOLE (METROGEL) 0.75 % Topical Gel Apply to affected area twice daily. Valentine-3 Fatty Acids (FISH OIL) 500 mg cap Take 1 capsule by mouth once daily. blood sugar diagnostic (BLOOD GLUCOSE TEST) test strip Test blood sugar(s) 1 times daily. Dx: Type 2 DM - Controlled E11.9 Insulin: Yes Lancets lancets Test blood sugar(s) 1 times daily. Dx: Type 2 DM - Controlled E11.9 Insulin: No Iynudfjp-Cg-Ukn-Fe-FA tab Take 1 tablet by mouth once [...] Age of Onset Alcohol/Drug Mother Heart Father ND Cancer Father PANCREATIC CANCER Diabetes Father Diabetes [...] RTO in six months documented in this encounterAden[facility]-28-2022 Miscellaneous Notes* Telephone Encounter - Nakia Caraballo RN - 08/01/2022 1:21 PM EDT Botox referral sent to pharmacy. Latonia Caraballo RN documented in this encounterAdena Regional Medical Center09-19-2022 Miscellaneous Notes* Telephone Encounter [...] 07/2022 Last refill: 07/2021 documented in this encounterAdena Regional Medical Center09-15-2022 Instructions* Patient Instructions* Gabi Cornelius APRN.STEP DOWN SPECIALIST - 07/19/2022 2:08 PM EDT Preventative: Topamax [...] Feverfew: Feverfew is a common garden herb [place] to [place] and popular in [facility] as a treatment for disorders typically controlled [...] pepperoni, Pickled leblanc Pods of broad jaquez (Czech beans, Barbadian pea pods, Yi (antwan) beans, saldana and navy beans Ripe [...] too muchlight. These can be obtained at [employer].Handseeing Information or [employer].Handseeing Information Foods: see list above. 2. Limit use of acute treatments (vzhk-qad-siqulwm medications, triptans, etc.) to no more than [...] and quiet environment. Relax and reduce stress. Lhmzymx5Cevjd is a free félix that can instruct you on some simple relaxtionand breathing techniques. Http://[employer]SQL is a free website that provides teaching [...] ensuing treatment plans will be released via [employer] and discussedduring your follow-up appointment. Plan B Mediahart: Please ask the schedulers to give you an activation code. The main way of communication isby [employer] rather than phone lines, so if you have not signed up, please do so. [employer] is also theway that you can review your labs and testing. We are not able to contact everyone to tell them results are normal. If you do not hear back from us regarding testing you have had, it should be considered normal or within normal range. If you have any questions about the results, you are free to message us. [employer] is meant for simple questions regarding medications, possible side effects, or other simplestraight forward questions in limited sentences, rather than multiple paragraphs of discussion. [employer] is not meant for, or efficient for [...] do not comment on most testing on [facility] in a message or commentary unless there is a concern. You will not receive a message from me of the result unless there is a specific concern of the result I need you to address further in care with us or your primary medical team. Make sure to check your my chart email or félix. documented in this encounterAdena [facility] Medical Center09-15-2022 History of Present illness Narrative* Karen Bansal APRN.CNP - 07/19/2022 1:00 PM EDT Images from the original note were not included. [facility] General [facility] New Patient [...] Description Onset: Early 30's. Usually start around early childhood associate. Denies upon wakening. Total headache days per [...] Outside imaging reviewed Lab work obtained from [facility] and reviewed Blood studies 02/07/2022 Hemoglobin A1C [...] Age of Onset Alcohol/Drug Mother Heart Father ND Cancer Father PANCREATIC CANCER Diabetes Father Diabetes [...] in bed with current PAP mask. Ipratropium Olney (ATROVENT) 0.03 % nasal spray Use 2 Sprays in the nose every 12 hours. metroNIDAZOLE (METROGEL) 0.75 % Topical Gel Apply to affected area twice daily. Valentine-3 Fatty Acids (FISH OIL) 500 mg cap Take 1 capsule by mouth once daily. blood sugar diagnostic (BLOOD GLUCOSE TEST) test strip Test blood sugar(s) 1 times daily. Dx: Type 2 DM - Controlled E11.9 Insulin: Yes Lancets lancets Test blood sugar(s) 1 times daily. Dx: Type 2 DM - Controlled E11.9 Insulin: No Qcdoozec-Zr-Jrr-Fe-FA tab Take 1 tablet by mouth once [...] Finger Abduction (U) 5 Finger Abduction 5 Electromatic Typist 5 Electromatic Typist 5 Right Lower Extremity: (of 5) Left [...] days a month: 3 Gabi Cornelius APRN.GABRIELA [facility] General Neurology My impression [...] which included preparing to see the patient, kcmh-kk-wqea patient care, completing clinical documentation, obtaining and/or [...] recommendations. Karen Bansal APRN.CNP documented in this encounterAdena Regional Medical Center09-15-2022 NoteHNO ID: [id number] Author: Adelina Mason APRN.CNP Service: ? Author Type: Nurse Practitioner Type: Progress Notes Filed: 07/19/2022 10:17 AM Note Text: [facility] [place] [facility] Today's Date: 07/19/2022 Last Visit: 05/24/22 [...] (A) 74 - 99 mg/dL Final Comment: Location:[facility], [address] [place] [address], [facility] The Accu-Chek Inform II glucose meter [...] activity was identified. 07/19/2022 by Adelina Mason APRN.STEP DOWN SPECIALIST Last Drug screen: Not Applicable Risk Assessment: [...] No visible regional lymphad (more content not included)...[facility]09-15-2022 NoteHNO ID: [id number] Author: Tiana Cifuentes MA Service: ? Author Type: Tool Planer Set Up Operator Type: Progress Notes Filed: 07/19/2022 10:17 AM [...] and suicidal ideas. The patient is not nervous/anxious.[facility]09-15-2022 Miscellaneous Notes* Telephone Encounter - Pankaj [...] year? Yes If yes, When and Where? [place], currently attending (Medical Records Release needs to [...] COVID vaccine.) Pankaj Murillo documented in this encounterAdena Regional Medical Center09-06-2022 Miscellaneous Notes* Telephone Encounter - Ingrid Salmon Ma - 07/10/2022 1:55 PM EDT Last office visit: 05/01/22 F/u scheduled: 08/02/22 Ingrid Salmon Ma documented in this encounterAdena Regional Medical Center08-30-2022 Miscellaneous Notes* Telephone Encounter [...] and PM. Note, lab work obtained from [facility] and reviewed. Given persistence of headaches will [...] Thank you. LEVAR Jasmine documented in this encounterAdena Regional Medical Center08-19-2022 Miscellaneous Notes* Telephone Encounter [...] refill: 06/06/2022 20 tablets documented in this encounterAdena Regional Medical Center08-04-2022 Miscellaneous Notes* Telephone Encounter - LEVAR Jasmine - 06/07/2022 4:24 PM EDT Orders and APRIL Notes faxed to [employer] to service pts PAP due to compliance reports and data no longerbeing able to be pulled from device. LEVAR Jasmine documented in this encounterAdena Regional Medical Center08-04-2022 History of Present illness Narrative* Tara Gillette APRN.STEP DOWN SPECIALIST - 06/07/2022 3:30 PM EDT Images from the original note were not included. [facility] [place] Follow-up Visit Follow-up note June 07, 2022 [...] BP. Check CMP and CBC due to exterminator helper med use. 3. LETITIA (obstructive [...] when sleepy. 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 Usually getting about 7 hours of sleep. [...] in bed with current PAP mask. Ipratropium Olney (ATROVENT) 0.03 % nasal spray Use 2 Sprays in the nose every 12 hours. metroNIDAZOLE (METROGEL) 0.75 % Topical Gel Apply to affected area twice daily. Valentine-3 Fatty Acids (FISH OIL) 500 mg cap Take 1 capsule by mouth once daily. blood sugar diagnostic (BLOOD GLUCOSE TEST) test strip Test blood sugar(s) 1 times daily. Dx: Type 2 DM - Controlled E11.9 Insulin: Yes Lancets lancets Test blood sugar(s) 1 times daily. Dx: Type 2 DM - Controlled E11.9 Insulin: No Vmjgkbyq-Ld-Kvo-Fe-FA ( FORMULA) ORAL Tab Take 1 tablet [...] and pattern. Labs/studies: Outside labs reviewed from [facility] collected on 06/05/22: CBC N UA N [...] and PM. Note, lab work obtained from [facility] and reviewed. Given persistence of headaches will [...] which included preparing to see the patient, kdcx-fq-llwe patient care, completing clinical documentation, obtaining and/or reviewing separately obtained history, performing a medically appropriate examination, counseling and educating the pat ient/family/caregiver and ordering medications, tests, or procedures. documented in this encounterAdena Regional Medical Center08-02-2022 Miscellaneous Notes* Addendum Note - Ivette Grimes MD - 06/05/2022 1:46 PM EDT Addended by: IVETTE GRIMES on: 06/05/2022 01:46 PM Modules accepted: Orders * Telephone Encounter - Ivette Grimes MD - 06/05/2022 1:44 PM EDT Can send lab to [facility] to be done in two weeks documented in this encounterAdena Regional Medical Center07-26-2022 Miscellaneous Notes* Telephone Encounter [...] says she had CMP andCBC done at [facility] on 02/09. These are in pt chart. Pt asking if she needs to have labs redrawn or if the ones done in February are sufficient. Please advise. Thank you. LEVAR Jasmine documented in this encounterAdena Regional Medical Center07-21-2022 NoteHNO ID: [id number] Author: Adelina Mason APRN.STEP DOWN SPECIALIST Service: ? 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07-21-2022 NoteHNO ID: [id number] Author: Gloria Oh MA Service: ? Author Type: Tool Planer Set Up Operator Type: Progress Notes Filed: 05/24/2022 10:08 PM [...] and suicidal ideas. The patient is not nervous/anxious.[facility]07-21-2022 Instructions* Patient Instructions* Adelina Mason APRN.GABRIELA - 05/24/2022 11:52 AM EDT Activity as tolerated Use Ice and/or heat as tolerated as needed documented in this encounterAdena Regional Medical Center07-21-2022 History of Present illness Narrative* Adelina Mason APRN.STEP DOWN SPECIALIST - 05/24/2022 11:28 AM EDT Images from the original note were not included. 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 05/24/2022 by Adelina Mason APRN.STEP DOWN SPECIALIST Last Drug screen: Not Applicable Risk Assessment: [...] and external rotation Special Tests: Non-painful (negative) Zac-Ji, Neer's, O'Briens, Speed's Diagnoses: (M25.512, G89.29) Chronic left [...] refill. UDS, NAOIC/ORT: up to date [facility]: Physical Therapy (Land-based) Additional Studies: None Referrals: [...] decision making from today's date. Adelina Mason APRN.STEP DOWN SPECIALIST Pain Management [facility] [place] [facility] * Gloria Oh [...] patient is not nervous/anxious. documented in this encounterAdena Regional Medical Center07-08-2022 Miscellaneous Notes* Telephone Encounter - Livia Luna - 05/11/2022 3:17 PM EDT Left brief message asking patient to call back with any questions or concerns about a recent appointment. Livia Luna LPN May 11, 2022 3:18 PM documented in this encounterAdena Regional Medical Center07-07-2022 NoteHNO ID: [id number] Author: Mirna Lanza LPN Service: ? Author [...] and suicidal ideas. The patient is not nervous/anxious.[facility]07-07-2022 Nurse Note* Mirna Lanza LPN - [...] tablePatient s procedure was performed in an [facility] Procedure room. Pause completed at each [...] Lanza LPN - 05/10/2022 10:03 AM EDT Outsole Paraffiner's Name: Marilynn Are you on a blood [...] to receive one? n documented in this encounterAdena Regional Medical Center07-07-2022 Instructions* Patient Instructions* Mirna [...] emergency care and why. documented in this encounterAdena Regional Medical Center07-07-2022 NoteHNO ID: [id number] Author: Elle Sanchez MD Service: ? Author Type: Physician Type: Progress Notes Filed: 05/10/2022 11:04 AM Note Text: [facility] [place] [facility] Patient name: Tori Gray Date of : 1980 Today's date: 05/10/2022 Purpose: Ultrasound-guided injection Diagnosis: (M75.02) Adhesive capsulitis of left shoulder (primary encounter diagnosis) (M19.012) Primary osteoarthritis of left shoulder Procedure: Left Shoulder/Chest Suprascapular Nerve Block Roller Print Tender: Elle Sanchez M.D., M.B.A Comments: Allergy Due to the patient's reported history of allergy to Lidocaine, the following medication was substituted: Bupivacaine. Notes from Logistics Planning Engineer 01/2020 reviewed, she had skin testing to multiple local anesthetics and steroids, without any reaction, but advised that she avoid Lidocaine where possible due to unknown negative predictive value of the tests. Other anesthetics had been used with other procedures that did not have a reaction (eg Bupivacaine). [facility]ell protocol documentation / Pre-Procedure Checklist: ? ID [...] COOKA Pain Management [facility] [place] [facility] 05-10-2022 History of Present illness Narrative* [...] 8:23 AM EDT [facility] [place] [facility] Patient name: Tori Gray Date of : 1980 Today's date: 05/10/2022 Purpose: Ultrasound-guided injection Diagnosis: (M75.02) Adhesive capsulitis of left shoulder (primary encounter diagnosis) (M19.012) Primary osteoarthritis of left shoulder Procedure: Left Shoulder/Chest Suprascapular Nerve Block Roller Print Tender: Elle Sanchez M.D., M.B.A Comments: Allergy Due to the patient's reported history of allergy to Lidocaine, the following medication was substituted: Bupivacaine. Notes from Logistics Planning Engineer 01/2020 reviewed, she had skin testing to multiple local anesthetics and steroids, without any reaction, but advised that she avoid Lidocaine where possible due to unknown negative predictive value of the tests. Other anesthetics had been usedwith other procedures that did not have a reaction (eg Bupivacaine). [facility]appell protocol documentation / Pre-Procedure Checklist: ID verified [...] MBA Pain Management [facility] [place] [facility] documented in this encounterAdena Regional Medical Center07-05-2022 Miscellaneous Notes* Telephone Encounter - Lubna Yoon LPN - 05/08/2022 1:04 PM EDT Sent a Wannado message * Telephone Encounter - Ivette Grimes MD - 05/08/2022 12:56 PM EDT I would recommend she follow up and see one of us here. documented in this encounterAdena Regional Medical Center06-30-2022 Miscellaneous Notes* Telephone Encounter [...] advise. Jumana Harrell LPN documented in this encounterAdena Regional Medical Center06-28-2022 Instructions* Patient Instructions* Ivette [...] tabs twice a day. documented in this encounterAdena Regional Medical Center06-28-2022 History of Present illness [...] in bed with current PAP mask. Ipratropium Olney (ATROVENT) 0.03 % nasal spray Use 2 [...] 2 DM - Controlled E11.9 Insulin: No Mdzvtrvt-Bi-Kdg-Fe-FA ( FORMULA) ORAL Tab Take 1 tablet by mouth once daily. Valentine-3 Fatty Acids (FISH OIL) 500 mg cap [...] Age of Onset Alcohol/Drug Mother Heart Father ND Cancer Father PANCREATIC CANCER Diabetes Father Diabetes [...] three months and prn. documented in this encounterAdena Regional Medical Center06-16-2022 Miscellaneous Notes* Addendum Note - Ivette Grimes MD - 04/19/2022 2:41 PM EDT Addended by: IVETTE GRIMES on: 04/19/2022 02:41 PM Modules accepted: Orders documented in this encounterAdena Regional Medical Center06-13-2022 Miscellaneous Notes* Telephone Encounter - Ivette Mejia Jr., MD - 04/16/2022 6:04 PM EDT Please contact DME ([facility]) to determine if pt qualifies for new PAP device. If so, can order a new AutoBilevel PAP. Thank you, Ivette Mejia MD documented in this encounterAdena Regional Medical Center06-13-2022 Miscellaneous Notes* Telephone Encounter - Quinn Lazo LPN - 04/16/2022 10:28 AM EDT Patient phones requesting refills as follows: Pending Prescriptions Disp Refills TIZANIDINE 4 MG TABLET 20 tablet 0 Sig: Take 1 tablet by mouth every 8 hours as needed. CRISTINA: No APRIL 02/28/22 NOV 05/01/22 Please review and advise. Quinn Lazo LPN documented in this encounterAdena Regional Medical Center06-06-2022 Instructions* Patient Instructions* Ivette eMjia Jr., MD - 04/09/2022 4:15 PM EDT [...] Excedrin and Tylenol use. documented in this encounterAdena Regional Medical Center06-06-2022 History of Present illness [...] this resolves mask issues. Rx sent to [facility]. During visit, discussed with patient: the physiology [...] with Tpx, but would like to continue. Luis Taylor reviewed with patient. Rx provided to continue [...] in bed with current PAP mask. Ipratropium Olney (ATROVENT) 0.03 % nasal spray Use 2 Sprays in the nose every 12 hours. blood sugar diagnostic (BLOOD GLUCOSE TEST) test strip Test blood sugar(s) 1 times daily. Dx: Type 2 DM - Controlled E11.9 Insulin: Yes Lancets lancets Test blood sugar(s) 1 times daily. Dx: Type 2 DM - Controlled E11.9 Insulin: No Dkadfflo-Sw-Jaq-Fe-FA ( FORMULA) ORAL Tab Take 1 tablet by mouth once daily. metroNIDAZOLE (METROGEL) 0.75 % Topical Gel Apply to affected area twice daily. Valentine-3 Fatty Acids (FISH OIL) 500 mg cap Take 1 capsule by mouth once daily. HISTORIES PAST MEDICAL HISTORY Diagnosis Date Acute cholecystitis Cholecystitis Anxiety 06/07/2014 Type 2 diabetes mellitus (HCC) FAMILY HISTORY Problem Relation Age of Onset Alcohol/Drug Mother Heart Father ND Cancer Father PANCREATIC CANCER Diabetes Father Diabetes [...] BP. Check CMP and CBC due to exterminator helper med use. 3. LETITIA (obstructive [...] when sleepy. 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 Ivette Mejia MD I spent a total of 40+ minutes on the date of the service which included preparing to see the patient, czye-tg-jdvl patient care, completing clinical documentation, obtaining and/or reviewing separately obtained history, performing a medically appropriate examination, counseling and educating the pa tient/family/caregiver, ordering medications, tests, or procedures, independently interpreting results (not separately reported) and communicating results to the patient/family/caregiver. documented in this encounterAdena Regional Medical Center06-02-2022 Miscellaneous Notes* Telephone Encounter - Helen Camacho LPN - 04/05/2022 9:51 AM EDT Last office visit 02/23/2022 documented in this encounterAdena Regional Medical Center05-27-2022 Miscellaneous Notes* Telephone Encounter - Milena Rico LPN - 03/30/2022 11:08 AM EDT april-- 02/28/22 Next 05/01/22 Last refill-- 03/16/22 20 with 0 refills Last labs 02/07/22 documented in this encounterAdena Regional Medical Center05-26-2022 Miscellaneous Notes* Telephone Encounter [...] COVID vaccine.) Terese Cruz documented in this encounterAdena Regional Medical Center05-26-2022 NoteHNO ID: [id number] Author: Henna Boles MA Service: ? Author Type: Tool Planer Set Up Operator Type: Progress Notes Filed: 03/29/2022 11:48 AM [...] and suicidal ideas. The patient is not nervous/anxious.[facility]05-26-2022 History of Present illness Narrative* Henna [...] not included. [facility] General Name: Tori Gray : 1980 Purpose: [...] 12/21/2021, noted she had an EMG at [facility] which was normal (Jul 2021). MRI shoulder had very minor degenerative changes. Non-surgical management was advised. 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 [...] (Meloxicam) and Lodine (Etodolac) Opioids: Vicodin or Maquoketa (Hydrocodone) and Percocet (Oxycodone) Muscle Relaxants: Zanaflex [...] Referrals: No additional considerations at present [facility]: No changes-continue current regimen Depending on response [...] SULE[facility]AN Pain Management [facility] [place] [facility] documented in this encounterAdena Regional Medical Center05-26-2022 NoteHNO ID: [id number] Author: Elle Sanchez MD Service: ? Author Type: Physician Type: Progress Notes Filed: 03/29/2022 11:48 AM Note Text: [facility]: Tori Gray : 1980 Purpose: New Patient [...] 12/21/2021, noted she had an EMG at [facility] which was normal (Jul 2021). MRI shoulder had very minor degenerative changes. Non-surgical management was advised. 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 [...] lumbar disc disease. She was seeing Dr. Schafre. Current Status: INTAKE PAIN ASSESSMENT 02/28/2022 03/29/2022 [...] (Meloxicam) and Lodine (Etodolac) Opioids: Vicodin or [place]qu[place]eta (Hydrocodone) and Percocet (Oxycodone) Muscle Relaxants: Zanaflex [...] On today's date, noted (more content not included)...[facility]05-13-2022 Miscellaneous Notes* Telephone Encounter - Helen Camacho LPN - 03/16/2022 11:14 AM EDT Patient phones requesting refills as follows: Pending Prescriptions Disp Refills TIZANIDINE 4 MG TABLET 20 tablet 0 Sig: Take 1 tablet by mouth every 8 hours as needed. CRISTINA: No Please review and advise. Helen Camacho LPN documented in this encounterAdena Regional Medical Center05-02-2022 Miscellaneous Notes* Telephone Encounter [...] Thank you. LEVAR Jasmine documented in this encounterAdena Regional Medical Center04-27-2022 History of Present illness Narrative* Ivette Grimes MD - 02/28/2022 4:43 PM EDT Patient presents with: ED Follow-up HPI: Patient presents today for office visit for follow up. Nursing Notes: Nirmala Storey PRINCESS 02/28/2022 4:42 PM Signed HOSPITAL/ER FOLLOW UP: Reason for visit: back pain/headache(different pain not her chronic pain) Pain went from lower backup to shoulders. Which facility: [facility] Date of visit: 02/27/22 Diagnosis: back pain, [...] week as well. Happened all day yesterday. [place] different than her classic disc pain. Might [...] in bed with current PAP mask. Ipratropium Olney (ATROVENT) 0.03 % nasal spray Use 2 Sprays in the nose every 12 hours. metroNIDAZOLE (METROGEL) 0.75 % Topical Gel Apply to affected area twice daily. Valentine-3 Fatty Acids (FISH OIL) 500 mg cap Take 1 capsule by mouth once daily. blood sugar diagnostic (BLOOD GLUCOSE TEST) test strip Test blood sugar(s) 1 times daily. Dx: Type 2 DM - Controlled E11.9 Insulin: Yes Lancets lancets Test blood sugar(s) 1 times daily. Dx: Type 2 DM - Controlled E11.9 Insulin: No Nxkvlktl-Ir-Abt-Fe-FA ( FORMULA) ORAL Tab Take 1 tablet [...] Age of Onset Alcohol/Drug Mother Heart Father ND Cancer Father PANCREATIC CANCER Diabetes Father Diabetes [...] six to eight weeks documented in this [facility]04-27-2022 Nurse Note* Nirmala Storey LPN - 02/28/2022 4:36 PM EDT HOSPITAL/ER FOLLOW UP: Reason for visit: back pain/headache(different pain not her chronic pain) Pain went from lower backup to shoulders. Which facility: [facility] Date of visit: 02/27/22 Diagnosis: back pain, hypertension Testing done: CT scan and labs Treatment given: no new changes Current symptoms: mild headache still and back pain, just feels off Was just feeling off. Aching. Cold chills. Scheduled with Dr Sanchez. documented in this [facility]04-26-2022 Miscellaneous Notes* Telephone Encounter - Quinn Lazo LPN - 02/27/2022 12:44 PM EDT Appt scheduled. Quinn Lazo LPN documented in this [facility]04-22-2022 Miscellaneous Notes* Telephone Encounter - LEVAR [...] Thank you. LEVAR Jasmine documented in this [facility]04-06-2022 Miscellaneous Notes* Telephone Encounter - Nirmala Storey LPN - 02/07/2022 4:09 PM EDT Mychart message sent to patient. * Telephone Encounter - Ivette Grimes MD - 02/07/2022 3:38 PM EDT Let her her know her labs look great. * Telephone Encounter - Nirmala Storey LPN - 02/07/2022 2:33 PM EDT Received lab results from [facility]. Placed on desk for review. [facility] Misc[facility]* Telephone Encounter - Tessy Wadsworth Ma - 02/05/2022 12:25 PM EDT Labs faxed within [employer] to update if there are any issues. Tessy Wadsworth Ma [facility] Miscellaneous Notes* Telephone Encounter [...] Carrillo Sent: 01/29/2022 7:34 AM EDT To: Clavin Gaytan Stephanie Gidley Subject: FW: New Referral ----- Message ----- From: Nirmala Storey LPN Sent: 01/26/2022 9:15 AM EDT To: Juliana Carrillo Subject: New Referral Dr Grimes and Dr Alfonso have suggested patient see Dr Sanchez for left shoulder pain. Thank you! [facility] History of Past illness [...] of this encounter (statuses as of 01/30/2022) [facility] [...] of this encounter (statuses as of 02/05/2022) [facility] [...] of this encounter (statuses as of 02/07/2022) [facility] [...] of this encounter (statuses as of 02/07/2022) [facility] [...] of this encounter (statuses as of 02/08/2022) [facility] [...] of this encounter (statuses as of 02/23/2022) [facility] [...] of this encounter (statuses as of 02/27/2022) [facility] [...] of this encounter (statuses as of 02/28/2022) [facility] Narrative* Problem Noted Date Resolved Date Routine general medical exam ination at a health care facility 12/06/2012 02/22/2014 Routine general medical exam ination at a [facility] care facility 01/23/2010 12/06/2012 Overview: 01/23/2010, from [...] of this encounter (statuses as of 03/05/2022) [facility] [...] of this encounter (statuses as of 03/16/2022) [facility] Narrative* Problem Noted Date Resolved Date Routine general medical exam ination at a health care facility 12/06/2012 02/22/2014 Routine general medical exam ination at a [facility] medical [facility] care facility 01/23/2010 12/06/2012 Overview: 01/23/2010, from [...] of this encounter (statuses as of 03/29/2022) [facility] [...] of this encounter (statuses as of 03/29/2022) [facility] [...] of this encounter (statuses as of 03/30/2022) [facility] [...] of this encounter (statuses as of 04/05/2022) [facility] of [facility] [...] of this encounter (statuses as of 04/09/2022) [place] [address]-02-2013 History of Past illness Narrative* Problem Noted [...] of this encounter (statuses as of 04/10/2022) [facility] [...] of this encounter (statuses as of 04/16/2022) [facility] [...] of this encounter (statuses as of 04/16/2022) [facility] [...] of this encounter (statuses as of 04/19/2022) [facility] [...] of this encounter (statuses as of 05/01/2022) [facility] [...] of this encounter (statuses as of 05/03/2022) [facility] [...] of this encounter (statuses as of 05/08/2022) [facility] illness [...] of this encounter (statuses as of 05/10/2022) [facility] [...] of this encounter (statuses as of 05/11/2022) [facility] illness [...] of this encounter (statuses as of 05/25/2022) [facility] [...] of this encounter (statuses as of 05/29/2022) [facility] [...] of this encounter (statuses as of 06/05/2022) [facility] [...] of this encounter (statuses as of 06/05/2022) [facility] illness [...] of this encounter (statuses as of 06/07/2022) [facility] [...] of this encounter (statuses as of 06/07/2022) [facility] [...] of this encounter (statuses as of 06/22/2022) [facility] [...] of this encounter (statuses as of 07/03/2022) [facility] [...] of this encounter (statuses as of 07/10/2022) [facility] [...] of this encounter (statuses as of 07/19/2022) [facility] [...] of this encounter (statuses as of 07/19/2022) [facility] [...] of this encounter (statuses as of 07/23/2022) [facility] [...] of this encounter (statuses as of 08/01/2022) [facility] [...] of this encounter (statuses as of 08/02/2022) [facility] [...] of this encounter (statuses as of 08/03/2022) [facility] Narrative* Problem Noted Date Resolved Date Routine general medical exam ination at a health care facility 12/06/2012 02/22/2014 Routine general medical exam ination at a regional medical center care facility 01/23/2010 12/06/2012 Overview: 01/23/2010, from [...] of this encounter (statuses as of 08/06/2022) [facility] [...] of this encounter (statuses as of 08/08/2022) [facility] [...] of this encounter (statuses as of 08/08/2022) [facility] [...] of this encounter (statuses as of 08/08/2022) [facility] [...] of this encounter (statuses as of 08/27/2022) [facility] of [facility] [...] of this encounter (statuses as of 09/03/2022) [facility]Reason for [facility] Narr[facility]* Chief Complaint Back [...] dysfunction of thoracic region Disc displacement, lumbar [facility] Work Phone: Consult note Author Ankur Templeton [facility] Note Date/Time June 23, 2025 8: 58am [facility] Medical Records Department [address] [place] [address] Anesthesia Postop Eval I 06/23/25 0857 MR#: [id number] Acct: [id number] Name: TORI GRAY Rep #:[id number] : 1980 45 From: Ankur ROJO PCP: Dr. Ivette Grimes MD Status:REG S DC Y Race: C Location: [place] [address] Anesthesia: Postop Eval I Current Vital Signs Temperature: 97.8 F Pulse Rate: 74 Blood Pressure: 114/70 Respiratory Rate: 16 Pulse Ox: 94 Assessment Airway patent: Yes Spontaneous unlabored respirations: Yes nausea: No Vomiting: No Anesthesia Complication: No Fluid Hydration Crystalloid volume administer (ml): 800 Total IV fluid infused: 800 Progress Note Anesthesia document: Postop Eval 1 completed: Yes 06/23/25 0858 <Electronically signed by Ankur Templeton CRNA> Date _ Ankur Templeton CRNA Cosigner Signature: Date CC: ~ Signed [facility] Work Phone: Discharge summary Author Sam Pearl [facility] February 04, 2024 3:49am Note Date/Time February 04, 2024 2:07 am [facility] Medical Records Department [address] [address] Emergency Department Summary 02/04/24 MR#: [id number] Acct: [id number] Name: TORI GRAY Rep #:[id number] : 1980 43 From: Sam Pearl MD [...] last A1c was in the 5.1 range. [facility] Medical History Abnormal ECG Acute bronchitis Acute [...] %) nasal spray 2 spray intranasal BID [id number]/20/20 [History Last Taken 08/03/23] omega-3 fatty acids [...] Neuro Narrative: Normal speech. No aphasia. Normal wiubhe-fi-cgct and oork-fu-gaug bilaterally. No confusion. Sensorium / Orientation: alert [...] do not think this is a primary LOCATION WORKER problem. She describes visual disturbance being diffuse, [...] (Auto) 71.0 H Lymph % (Auto) 19.8 Taylor % (Auto) 6.6 Eos % (Auto) 0.9 [...] Clarity Clear Urine pH 7.0 Ur Specific [place] 1.010 Urine Protein 15 H Urine Glucose [...] your Primary Care Provider. Call [facility] ([phone]) or report to the closest Emergency Room. Call 911 if necessary. 02/04/24 6599 <Electronically signed by Sam Pearl MD> Cosigner Signature (if applicable): CC: Dr. Ivette Grimes MD ~ Signed [facility] Work Phone: Evaluation note* Diagnosis Onset Date [...] region acute Disc displacement, lumbar ch ronic [facility] Work Phone: Evaluation note* Diagnosis Upper back pain- Primary Acute midline low back pain without sciatica Type 2 diabetes mellitus with microalbuminuria, with long-term current use of insulin ([facility]) LETITIA (obstructive sleep apnea) Obstructive sleep apnea (adult) (pediatric) Lumbar disc disorder Other and unspecified disc disorder of lumbar region Elevated BP without diagnosis of hypertension [facility] Diagnosis Myofascial pain- Primary Mylagia and myositis, unspecified Chronic left shoulder pain Pain in joint, shoulder region Neuropathic pain Neuralgia, neuritis, and radiculitis, unspecified Adhesive capsulitis of left shoulder Adhesive capsulitis of shoulder Primary osteoarthritis of left shoulder Primary localized osteoarthrosis, shoulder region [facility] this encounter [facility]* Diagnosis Migraine without aura and without status migrainosus, not intractable Migraine without aura, without mention of intractable migraine without mention of status migrainosus [facility] encounter [facility]* Diagnosis Intractable migraine [...] comorbidity present (HCC) [facility] encounter [facility]* Diagnosis Microalbuminuria- Primary Proteinuria [...] Chest pain, unspecified [facility] SOB (shortness of breath) Shortness of breath [facility]* Diagnosis Adhesive capsulitis of left shoulder- Primary Adhesive capsulitis of shoulder Primary osteoarthritis of left shoulder Primary localized osteoarthrosis, shoulder region [facility] Diagnosis Chronic left shoulder pain- Primary Pain in joint, shoulder region Adhesive capsulitis of left shoulder Adhesive capsulitis of shoulder Primary osteoarthritis of left shoulder Primary localized osteoarthrosis, shoulder region Myofascial pain Mylagia and myositis, unspecified [facility]* Diagnosis Proteinuria, unspecified type- Primary Leukocytosis, [...] comorbidity present (HCC) [facility] Diagnosis Intractable migraine without aura [...] comorbidity present (HCC) documented in this encounter [facility]* Diagnosis Intractable chronic migraine without aura and without status migrainosus- Primary Chronic migraine without aura, with intractable migraine, so stated, without mention of status migrainosus Mixed migraine and muscle contraction headache Migraine, unspecified, without mention of intractable migraine without mention of status migrainosus [facility] this encounter [facility]* Diagnosis Onset Date [...] region acute Disc displacement, lumbar ch ronic [facility] Work Phone: Evaluation note* Diagnosis Type 2 [...] Fatigue, unspecified type [facility] encounter [facility]* Diagnosis Onset Date [...] of thoracic region chronic Obesity chronic [facility] Work Phone: Evaluation note* Diagnosis Onset Date [...] chronic Obesity chronic Type 2 diabetes mellitus [facility] Work Phone: Evaluation note* Diagnosis Malaise- Primary Other malaise and fatigue [facility] this encounter [facility] Diagnosis Onset Date [...] region acute Disc displacement, lumbar ch ronic [facility] Work Phone: Evaluation note* Diagnosis Lightheadedness- Primary Dizziness and giddiness Essential (primary) hypertension Unspecified essential hypertension Prolonged Q-T interval on ECG Nonspecific abnormal electrocardiogram (ECG) (EKG) Type 2 diabetes mellitus with microalbuminuria, with long-term current use of insulin (HCC) Fatty liver Other chronic nonalcoholic liver disease LETITIA (obstructive sleep apnea) Obstructive sleep apnea (adult) (pediatric) [facility] Diagnosis Anxiety with depression- Primary [facility] this encounter [facility] Diagnosis Onset Date [...] region acute Disc displacement, lumbar ch ronic [facility] Work Phone: Evaluation note* Diagnosis Onset Date [...] region acute Disc displacement, lumbar ch ronic [facility] Work Phone: Evaluation note* Diagnosis VAHE (generalized anxiety disorder)- Primary Generalized anxiety disorder Major depressive disorder, recurrent episode, moderate ([facility]) Major depressive disorder, recurrent episode, moderate [facility] Diagnosis Chronic left shoulder pain- Primary Pain in joint, shoulder region Adhesive capsulitis of left shoulder Adhesive capsulitis of shoulder Neuropathic pain Neuralgia, neuritis, and radiculitis, unspecified Myofascial pain Mylagia and myositis, unspecified [facility] encounter [facility] Diagnosis Chronic left shoulder pain- Primary Pain in joint, shoulder region Adhesive capsulitis of left shoulder Adhesive capsulitis of shoulder Chronic left shoulder pain Pain in joint, shoulder region Adhesive capsulitis of left shoulder Adhesive capsulitis of shoulder [facility] Diagnosis Microalbuminuria Proteinuria Type 2 diabetes mellitus without complication, with long-term current use of insulin ([facility]) Lumbar herniated disc Displacement of lumbar intervertebral disc without myelopathy 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 Displacement of thoracic intervertebral disc without myelopathy Spinal stenosis of thoracolumbar region Spinal stenosis of thoracic region Pain of left upper extremity Chronic left shoulder pain Pain in joint, shoulder region Adhesive capsulitis of left shoulder Adhesive capsulitis of shoulder [facility] Diagnosis Onset Date [...] region acute Disc displacement, lumbar ch ronic [facility] Work Phone: Evaluation note* Diagnosis Onset Date [...] region acute Disc displacement, lumbar ch ronic [facility] Work Phone: Evaluation note* Diagnosis Worst headache of life- Primary Headache Concussion with loss of consciousness, initial encounter Chronic left shoulder pain Pain in joint, shoulder region Adhesive capsulitis of left shoulder Adhesive capsulitis of shoulder documented in this encounter [facility]* Diagnosis Headache, unspecified headache type- Primary Concussion with loss of consciousness, initial encounter Chronic left shoulder pain Pain in joint, shoulder region Adhesive capsulitis of left shoulder Adhesive capsulitis of shoulder [facility] encounter [facility]* Diagnosis Post concussion [...] capsulitis of shoulder [facility]* Diagnosis Headache, unspecified headache type- Primary Concussion with loss of consciousness, initial encounter Chronic left shoulder pain Pain in joint, shoulder region Adhesive capsulitis of left shoulder Adhesive capsulitis of shoulder [facility]* Diagnosis Post concussion syndrome- Primary Postconcussion syndrome Essential (primary) hypertension Unspecified essential hypertension Microalbuminuria Proteinuria Type 2 diabetes mellitus without complication, with long-term current use of insulin ([facility]) Chronic left shoulder pain Pain in joint, shoulder region Adhesive capsulitis of left shoulder Adhesive capsulitis of shoulder documented in this encounter [facility]* Diagnosis Post concussion syndrome- Primary Postconcussion syndrome Essential (primary) hypertension Unspecified essential hypertension Chronic left shoulder pain Pain in joint, shoulder region Adhesive capsulitis of left shoulder Adhesive capsulitis of shoulder [facility]* Diagnosis Post concussive syndrome- Primary Postconcussion syndrome Headache, unspecified headache type documented in this encounter [facility]* Diagnosis Post concussive syndrome- Primary Postconcussion syndrome Headache, unspecified headache type Injury of neck, subsequent encounter documented in this encounter [facility]* Diagnosis Onset Date Resolution Status Back [...] region acute Disc displacement, lumbar ch ronic [facility] Work Phone: Evaluation note* Diagnosis Intractable chronic migraine without aura and without status migrainosus- Primary Chronic migraine without aura, with intractable migraine, so stated, without mention of status migrainosus [facility] Diagnosis Chronic left shoulder pain- Primary Pain in joint, shoulder region Adhesive capsulitis of left shoulder Adhesive capsulitis of shoulder Neuropathic pain Neuralgia, neuritis, and radiculitis, unspecified Primary osteoarthritis of left shoulder Primary localized osteoarthrosis, shoulder region Myofascial pain Mylagia and myositis, unspecified Lumbar spondylosis Lumbosacral spondylosis without myelopathy [facility] Diagnosis Post concussive syndrome- Primary Postconcussion syndrome Headache, unspecified headache type Injury of neck, subsequent encounter [facility] Diagnosis Soft tissue mass- Primary Disorders of soft tissue, unspecified [facility] Diagnosis VAHE (generalized anxiety disorder)- Primary Generalized anxiety disorder Recurrent major depressive disorder, in full remission (HCC) [facility] Diagnosis Onset Date Resolution Status [...] region acute Disc displacement, lumbar ch ronic [facility] Work Phone: Evaluation note* Diagnosis Anxiety- Primary Anxiety state, unspecified [facility] Diagnosis Soft tissue mass- Primary Disorders of soft tissue, unspecified Post concussive syndrome Postconcussion syndrome Essential (primary) hypertension Unspecified essential hypertension Type 2 diabetes mellitus with microalbuminuria, with long-term current use of insulin (HCC) Headache, unspecified headache type Myalgia Mylagia and myositis, unspecified [facility]* Diagnosis Post concussion syndrome- Primary Postconcussion syndrome LETITIA (obstructive sleep apnea) Obstructive sleep apnea (adult) (pediatric) documented in this encounter [facility]* Diagnosis Encounter for gynecological examination (general) (routine) without abnormal findings- Primary [facility]* Diagnosis Post concussion syndrome- Primary Postconcussion syndrome LETITIA (obstructive sleep apnea) Obstructive sleep apnea (adult) (pediatric) Intractable acute post-traumatic headache Acute post-traumatic headache Altered awareness, transient Transient alteration of awareness documented in this encounter [facility]* Diagnosis Onset Date Resolution Status Back [...] region acute Disc displacement, lumbar ch ronic [facility] Work Phone: Evaluation note* Diagnosis Intractable chronic migraine without aura and without status migrainosus- Primary Chronic migraine without aura, with intractable migraine, so stated, without mention of status migrainosus Post concussive syndrome Postconcussion syndrome [facility] Diagnosis Onset Date [...] region acute Disc displacement, lumbar ch ronic [facility] Work Phone: Evaluation note* Diagnosis Foot pain, right- Primary Pain in limb [facility] Diagnosis Type 2 diabetes mellitus [...] unspecified headache type [facility] Diagnosis Memory loss- Primary Attention and concentration deficit Attention or concentration deficit Post concussion syndrome Postconcussion syndrome Intractable migraine without aura and without status migrainosus Migraine without aura, with intractable migraine, so stated, without mention of status migrainosus LETITIA (obstructive sleep apnea) Obstructive sleep apnea (adult) (pediatric) [facility] Diagnosis Plantar fasciitis- Primary Plantar fascial fibromatosis Calcaneal spur of right foot Calcaneal spur [facility] Diagnosis SOB (shortness of breath) Shortness of breath [facility]* Diagnosis SOB (shortness of breath) Shortness of breath [facility]* Diagnosis Onset Date Resolution Status [...] thoracic region acute [facility]* Diagnosis Post concussion syndrome Postconcussion syndrome Intractable acute post-traumatic headache Acute post-traumatic headache Dizziness Dizziness and giddiness Cervicalgia documented in this encounter [facility] [facility] Post concussive syndrome Postconcussion syndrome Headache, unspecified headache type [facility] Diagnosis Onset Date Resolution Status Back [...] region acute Disc displacement, lumbar ch ronic [facility] Work Phone: Evaluation note* Diagnosis Onset Date [...] region acute Disc displacement, lumbar ch ronic [facility] Work Phone: Evaluation note* Diagnosis Essential (primary) hypertension- Primary Unspecified essential hypertension LETITIA (obstructive sleep apnea) Obstructive sleep apnea (adult) (pediatric) Fatty liver Other chronic nonalcoholic liver disease Vertigo Dizziness and giddiness Anxiety Anxiety state, unspecified [facility] Diagnosis Encounter for screening mammogram for malignant neoplasm of breast- Primary Other screening mammogram [facility] Diagnosis Onset Date [...] ronic Obesity chronic LETITIA (obstructive sleep apnea) [facility] Work Phone: Evaluation note* Diagnosis Intractable chronic migraine without aura and without status migrainosus- Primary Chronic migraine without aura, with intractable migraine, so stated, without mention of status migrainosus [facility] Diagnosis Onset Date Resolution Status Obesity chronic LETITIA (obstructive sleep apnea) [facility] Work Phone: Evaluation note* Diagnosis Intractable chronic migraine without aura and without status migrainosus- Primary Chronic migraine without aura, with intractable migraine, so stated, without mention of status migrainosus documented [facility] Diagnosis Headache, unspecified headache type documented [facility] this [facility]* Diagnosis Headache, unspecified headache type documented [facility] this [facility]* Diagnosis Left sided sciatica- Primary Sciatica Screening for depression documented in this encounter [facility]* Diagnosis Acute cough- Primary documented in this [facility]* Diagnosis Bronchitis- Primary Bronchitis, not specified as acute or chronic Type 2 diabetes mellitus with microalbuminuria, with long-term current use of insulin (HCC) Wheezing documented [facility] this encounter [facility]* Diagnosis Type 2 diabetes mellitus with microalbuminuria, with long-term current use of insulin (HCC)- Primary documented in this [facility]* Diagnosis Cough, unspecified type- Primary documented in this encounter [facility]* Diagnosis Pain of right heel Pain in limb documented in this encounter [facility]* Diagnosis Well adult exam- Primary Routine [...] myelopathy, lumbar region documented in this encounter [facility] note* Diagnosis Intractable chronic migraine without aura and without status migrainosus- Primary Chronic migraine without aura, with intractable migraine, so stated, without mention of status migrainosus documented [facility] this encounter [facility]* Diagnosis Dysuria- Primary Type 2 diabetes mellitus with microalbuminuria, with long-term current use of insulin (HCC) Primary insomnia Persistent disorder of initiating or maintaining sleep documented in this encounter [facility] note* Diagnosis Flank pain- Primary Abdominal pain, unspecified site documented [facility] this encounter [facility]* Diagnosis Flank pain Abdominal pain, unspecified site [facility]* Diagnosis SOB (shortness of breath) Shortness of breath documented [facility] this [facility]* Diagnosis Sinobronchitis- Primary Unspecified sinusitis (chronic) Hypokalemia Hypopotassemia documented in this encounter [facility]* Diagnosis Sinobronchitis- Primary Unspecified sinusitis (chronic) documented in this encounter [facility] note* Diagnosis Encounter for screening mammogram for breast cancer documented in this encounter [facility]* Diagnosis LETITIA (obstructive sleep apnea)- Primary Obstructive sleep apnea (adult) (pediatric) Flank pain Abdominal pain, unspecified site Headache, unspecified headache type Type 2 diabetes mellitus with microalbuminuria, with long-term current use of insulin (HCC) Essential (primary) hypertension Unspecified essential hypertension Chronic left shoulder pain Pain in joint, shoulder region Anxiety Anxiety state, unspecified Screening for depression documented in this encounter [facility]* Diagnosis Intractable chronic migraine without aura and without status migrainosus- Primary Chronic migraine without aura, with intractable migraine, so stated, without mention of status migrainosus Chronic left shoulder pain Pain in joint, shoulder region documented in this encounter [facility]* Diagnosis Intractable chronic migraine without aura and with status migrainosus- Primary Chronic migraine without aura, with intractable migraine, so stated, with status migrainosus [facility]* Diagnosis Spasm of muscle [facility]* Diagnosis Flank pain Abdominal pain, unspecified site documented in this encounter [facility]* Diagnosis Well adult exam- Primary Routine [...] for breast cancer [facility]* Diagnosis LUQ pain Abdominal pain, left upper quadrant Flank pain Abdominal pain, unspecified site [facility]* Diagnosis Type 2 diabetes mellitus with microalbuminuria, with long-term current use of insulin (HCC) [facility] Electrophysiology Location: None Selected [facility] Work Phone: Hospital Discharge instructions Additional Instructions [...] care physician for further outpatient evaluation and management.[facility] Work Phone: Reason for referral (narrative)* Diagnostic Procedure Only (Routine) - Pending Review Specialty Diagnoses / Procedures Referred By Petra meek Referred To Contact XR IMAGING Diagnoses Rib pain Procedures XR RIBS/CHEST 3V AP RIB/OBLS/CXR LEFT RADEX RIBS UNI W/POSTEROANT CH MINIMUM 3 VIEWS Ivette Grimes MD [address] [place] [address] Xr Imaging Referral ID Status Reason Start Date Expiration Date Visits Requested Visits Authorized [id number] Pending Review Auto-Generat ed Referral 05/01/2022 05/31/2023 1 1 [facility] for referral (narrative)* - Pending Review Specialty Diagnoses / Procedures Referred By Petra meek Referred To Contact Physical Therapy Diagnoses Chronic left shoulder pain Adhesive capsulitis of left shoulder Primary osteoarthritis of left shoulder Procedures CONSULT TO PHYSICAL THERAPY Adelina Mason, THOM.STEP DOWN SPECIALIST [address] [place] [address] Referral ID Status Reason Start Date Expiration Date V isits Requested Visits Authorized [id number] Pending Review 05/24/2022 08/22/2022 1 1 [facility] for referral (narrative)* Outpatient Procedure (Routine) - Closed Specialty Diagnoses / Procedures Referred By Contac t Referred To Contact [facility] Diagnoses Prolonged Q-T interval on ECG Procedures ECG COMPLETE ECG ROUTINE ECG W/LEAST 12 LDS W/I&R Ivette Grimes MD [address] [place] [address] [facility] [place] [address] [place] [id number] Referral ID Status Reason Start Date Expiration Date V isits Requested Visits Authorized [id number] Closed Auto-Generate d Referral 09/04/2022 09/04/2023 1 1 [facility] for referral (narrative)* Diagnostic Procedure Only (Routine) - Pending Review Specialty Diagnoses / Procedures Referred By Contac t Referred To Contact US IMAGING Diagnoses Soft tissue mass Procedures US HEAD/NECK SOFT TISSUE OTHER US SOFT TISSUE HEAD & NECK REAL TIME IMGE DOCM Ivette Grimes MD [address] [place] [address] Us Imaging Referral ID Status Reason Start Date Expiration Date Visits Requested Visits Authorized [id number] Pending Review Auto-Generat ed Referral 01/31/2023 03/01/2024 1 1 [facility] for referral (narrative)* Outpatient Procedure (Routine) - Pending Review Specialty Diagnoses / Procedures Referred By Contac t Referred To Contact [facility] Diagnoses Altered awareness, transient Procedures EPIL EEG ROUTINE ELECTROENCEPHALOGRAM REC COMA/SLEEP ONLY Fatuma Beckford PA-C [address] [place] [address] [facility] [place] [address] [place] [address] Referral ID Status Reason Start Date Expiration Date Visits Requested Visits Authorized [id number] Pending Review Auto-Generat ed Referral 03/05/2023 03/05/2024 1 1 [facility] for referral (narrative)* Diagnostic Procedure Only (Routine) - Pending Review Specialty Diagnoses / Procedures Referred By Petra t Referred To Contact BR IMAGING Diagnoses Encounter for screening mammogram for malignant neoplasm of breast Procedures FLASH SCREENING SCREENING MAMMOGRAPHY BI 2-VIEW BREAST INC CAD Ivette Grimes MD [address] [place] [address] [facility] [address] [place] [address] Referral ID Status Reason Start Date Expiration Date Visits Requested Visits Authorized [id number] Pending Review Auto-Generat ed Referral 06/06/2023 07/05/2024 1 1 * Transition of Care (Routine) - Ref Not Required Specialty Diagnoses / Procedures Referred By Petra meek Referred To Contact Pain Management Diagnoses Chronic left shoulder pain Herniation of lumbar intervertebral disc with radiculopathy Procedures CONSULT TO PAIN MGT Ivette Grimes MD [address] [place] [address] Referral ID Status Reason Start Date Expiration Date Visits Requested Visits Authorized [id number] Ref Not Required PCP Requested Referral 06/06/2023 06/05/2024 1 1 [facility] for referral (narrative)* Diagnostic Procedure Only (Routine) - Closed Specialty Diagnoses / Procedures Referred By Petra t Referred To Contact MR IMAGING Diagnoses Post concussion syndrome Intractable acute post-traumatic headache Dizziness Cervicalgia Procedures MRI CERVICAL SPINE WO IVCON MRI SPINAL CANAL CERVICAL W/O CONTRAST Ivette Ansari Jr., MD [address] [address] [place] [address] Referral ID Status Reason Start Date Expiration Date V isits Requested Visits Authorized [id number] Closed Auto-Generat ed Referral Patient Cleared - [...] CONTRAST MATERIAL Ivette Mejia Jr., MD [address] [facility] [address] [place] [address] [place] [address] Referral ID Status Reason Start Date Expiration Date V isits Requested Visits Authorized [id number] Closed Auto-Generat ed Referral Patient Cleared - Admin/Chairm an/Director advise to proceed or did not respond 02/26/2023 02/28/2023 1 1 [facility] for referral (narrative)* Diagnostic Procedure Only (Routine) - Pending Review Specialty Diagnoses / Procedures Referred By Contlety t Referred To Contact BR IMAGING Diagnoses Encounter for screening mammogram for malignant neoplasm of breast Procedures FLASH SCREENING W JAQUELIN SCREENING DIGITAL BREAST TOMOSYNTHESIS BI SCREENING MAMMOGRAPHY BI 2-VIEW BREAST INC CAD Ivette Grimes MD [address] [place] [address] [facility] [address] [place] [address] Referral ID Status Reason Start Date Expiration Date Visits Requested Visits Authorized [id number] Pending Review Auto-Generat ed Referral 12/09/2023 01/07/2025 1 1 [facility] for referral (narrative)* Diagnostic Procedure Only (Urgent) - Closed Specialty Diagnoses / Procedures Referred By Contac t Referred To Contact XR IMAGING Diagnoses Pain of right heel Procedures XR FOOT GENERAL 3V AP/LAT/OBL RIGHT RADEX FOOT COMPLETE MINIMUM 3 VIEWS Nicole Anton, PAReneeC [address] [place] [address] [place] [address] Referral ID Status Reason Start Date Expiration Date V isits Requested Visits Authorized [id number] Closed Auto-Generate d Referral 05/28/2023 06/26/2024 1 1 [facility] for referral (narrative)No reason for referral information availableWLake [facility]: Reason for visit Narrative* Diagnostic Procedure Only (Routine) - Closed Specialty Diagnoses / Procedures Referred By Contac t Referred To Contact MR IMAGING Diagnoses Post concussion syndrome Intractable acute post-traumatic headache Dizziness Cervicalgia Procedures MRI CERVICAL SPINE WO IVCON MRI SPINAL CANAL CERVICAL W/O CONTRAST Ivette Ansari Jr., MD [address] [facility] [address] [place] [address] [place] [address] Referral ID Status Reason Start Date Expiration Date V isits Requested Visits Authorized [id number] Closed Auto-Generat ed Referral Patient Cleared - Admin/Chairm an/Director advise to proceed or did not respond 02/26/2023 02/28/2023 1 1 [facility] for visit Narrative* Diagnostic Procedure Only (Urgent) - Closed Specialty Diagnoses / Procedures Referred By Contac t Referred To Contact XR IMAGING Diagnoses Pain of right heel Procedures XR FOOT GENERAL 3V AP/LAT/OBL RIGHT RADEX FOOT COMPLETE MINIMUM 3 VIEWS Nicole Anton PA-C [address] [place] [address] [place] [address] Referral ID Status Reason Start Date Expiration Date V isits Requested Visits Authorized [id number] Closed Auto-Generate d Referral 05/28/2023 06/26/2024 1 1 [facility] Family History No Family [...] Will No November 21 3:58pm Power of Marine Biologist No November 21, 2021 3:58pm Advance Directive Response Recorded Date/ Time Advance Directives No November 21, 2021 3:58pm Living Will No February 27, 2022 10:01am Power of Marine Biologist No February 27 10:01am Advance Directive Response Recorded Date/ Time Advance Directives No November 21, 2021 2:58pm Living Will No February 27, 2022 9:01am Power of Marine Biologist No February 27 9:01am Advance Directive Response Recorded Date/ Time Advance Directives No November 21, 2021 2:58pm Living Will No November 24 11:49am Power of Marine Biologist No November 24, 2022 11:49am Advance Directive Response Recorded Date/ Time Advance Directives No November 21, 2021 2:58pm Living Will No November 27 3:43pm Power of Marine Biologist No November 27, 2022 3:43pm Advance Directive Response Recorded Date/ Time Advance Directives No November 21, 2021 3:58pm Living Will No December 03 7:35pm Power of Marine Biologist No December 03, 2022 7:35pm Advance Directive Response Recorded Date/ Time Advance Directives No November 21, 2021 3:58pm Living Will No May 20, 2023 9:41pm Power of Marine Biologist No May 20 9:41pm Advance Directive Response Recorded Date/ Time Advance Directives No November 21, 2021 3:58pm Living Will No August 05 9:54am Power of Marine Biologist No August 05 023 9:54am Advance Directive Response Recorded Date/ Time Advance Directives No November 21, 2021 2:58pm Living Will No August 05 12:04pm Power of Marine Biologist No August 05 2 023 12:04pm Advance Directive Response Recorded Date/ Time Advance Directives No November 21, 2021 2:58pm Living Will No October 27 2 023 4:06pm Power of Marine Biologist No October 27, 2023 4:06pm Advance Directive Response Recorded Date/ Time Advance Directives No November 21, 2021 3:58pm Living Will No February 04, 2024 1:16am Power of Marine Biologist No February 03 1:16am Advance Directive Response Recorded Date/ Time Advance Directives No October 07, 2024 8:43am Living Will No October 16, 2 024 10:17pm Do you have a Healthcare Power of Marine Biologist? No October 16, 2024 10:17pm Living Will No November 11 7:01am Do you have a Healthcare Power of Marine Biologist? No November 11, 2024 7:01am Advance Directive Response Recorded Date/ Time Advance Directives No March 09, 2025 9:20am Advance Directive Response Recorded Date/ Time Advance Directives No March 09, 2025 9:20am Do you have a Healthcare Power of Marine Biologist? No June 10, 2025 9:08am Medications Administered Section Inactive Administered Medications - [...] Specialty Diagnoses / Procedures Referred By Petra meke Referred To Contact Diagnoses Intractable migraine without aura and without status migrainosus Procedures CONSULT TO HEADACHE CLINIC OFFICE/OUTPATIENT [facility] 60-74 MINUTES Tara Gillette APRN.STEP DOWN SPECIALIST [address] [place] [address] Referral ID Status Reason Start Date Expiration Date Visits Requested Visits Authorized [id number] Authorized PCP Requested Referral 06/07/2022 06/07/2023 1 1 Specialty Diagnoses / Procedures Referred By Contac t Referred To Contact MR IMAGING Diagnoses Post concussion syndrome Intractable acute post-traumatic headache Dizziness Cervicalgia Procedures MRI CERVICAL SPINE WO IVCON MRI SPINAL CANAL CERVICAL W/O CONTRAST MATRL Ivette Mejia Jr., MD [address] [facility] [address] [place] [address] Mr Imaging Referral ID Status Reason Start Date Expiration Date Visits Requested Visits Authorized [id number] Pending Review Auto-Generat ed Referral 12/07/2022 01/06/2024 1 1 Specialty Diagnoses / Procedures Referred By Contac t Referred To Contact MR IMAGING Diagnoses Post concussion syndrome Intractable acute post-traumatic headache Dizziness Cervicalgia Procedures MRI BRAIN WO IVCON MRI BRAIN BRAIN STEM W/O CONTRAST MATERIAL Ivette Mejia Jr., MD [address] [facility] [address] [place] [address] Mr Imaging Referral ID Status Reason Start Date Expiration Date Visits Requested Visits Authorized [id number] Pending Review Auto-Generat ed Referral 12/07/2022 01/06/2024 1 1 Specialty Diagnoses / Procedures Referred By Contac t Referred To Contact CT IMAGING Diagnoses Soft tissue mass Procedures CT NECK SOFT TISSUE W IVCON CT SOFT TISSUE NECK W/CONTRAST MATERIAL Ivette Grimes MD [address] [place] [address] Ct Imaging Referral ID Status Reason Start Date Expiration Date Visits Requested Visits Authorized [id number] Pending Review Auto-Generat ed Referral 02/28/2023 03/29/2024 1 1 Specialty Diagnoses / Procedures Referred By Contac t Referred To Contact [facility] Diagnoses Post concussive syndrome Procedures CONSULT TO SPEECH THERAPY OFFICE/OUTPATIENT [facility] 60-74 MINUTES Fatuma Beckford PA-C [address] [place] [address] [facility] [place] [address] [place] [address] Referral ID Status Reason Start Date Expiration Date Visits Requested Visits Authorized [id number] Pending Review Auto-Generat ed Referral 05/17/2023 05/16/2024 1 1 Specialty Diagnoses / Procedures Referred By Contac t Referred To Contact Fatuma Beckford PA-C [address] [place] [address] Referral ID Status Reason Start Date Expiration Date Visits Re quested Visits Authorized [id number] Closed 1 1 Specialty Diagnoses / Procedures Referred By Contac t Referred To Contact Diagnoses Type 2 diabetes mellitus with microalbuminuria, with long-term current use of insulin ([facility]) Ivette Grimes MD [address] [place] [address] Referral ID Status Reason Start Date Expiration Date Visits Re quested Visits Authorized [id number] Closed 1 1 Chief Complaint and Reason [...] Back pain 1 Y FU 2 ORDERING 'Bryan MEJIA & SYDNEY SCREENING ABN EKG (SYDNEY) [...] (obstructive sleep apnea) Chief Complaint Admit Date fallOctober 16, 2024 8:22pm Back pain October 19, [...] 2025 9:27am Disc displacement, lumbar June 17, 2 025 9:27am Chief Complaint Admit Date Back pain March [...] BACK PAIN June 17, 2025 9: 27am Left shoulder Arthroscopy, subacromial d ecompressi June 23, 2025 6:20am Left shoulder Arthroscopy, subacromial d ecompressi June 23, 2025 7:12am Reason for Visit Admit Date Segmental and [...] 2025 9:27am Disc displacement, lumbar June 17, 2 025 9:27am Impingement of left shoulder June 6:20am Chief Complaint Admit Date Back pain March [...] BACK PAIN June 17, 2025 9: 27am Left shoulder Arthroscopy, subacromial d ecompressi June 23, 2025 6:20am Left shoulder Arthroscopy, subacromial d ecompressi June 23, 2025 7:12am left shoulder June 25, 2025 9: 12am Reason for Visit Admit Date Segmental and [...] 2025 9:27am Disc displacement, lumbar June 17, 2 025 9:27am Impingement of left shoulder June 6:20am Impingement of left shoulder June 9:12am Summary Purpose Additional Source Comments Source Comments (unrecognize d section and content) In the event this informatio n is protected by the Federal Confidentiality of Alcohol and Drug Abuse Patient Records regulations: The Federal rules restrict any use of the information to criminally investigate or prosecute any alcohol or drug abuse patient.[facility] the event this information is protected by the Federal Confidentiality of Alcohol and Drug Abuse Patient Records regulations: The Federal rules restrict any use of the information to criminally investigate or prosecute any alcohol or drug abuse patient.[facility] the event this information is protected by the Federal Confidentiality of Alcohol and Drug Abuse Patient Records regulations: The Federal rules restrict any use of the information to criminally investigate or prosecute any alcohol or drug abuse patient.[facility] the event this information is protected by the Federal Confidentiality of Alcohol and Drug Abuse Patient Records regulations: The Federal rules restrict any use of the information to criminally investigate or prosecute any alcohol or drug abuse patient.[facility] the event this information is protected by the Federal Confidentiality of Alcohol and Drug Abuse Patient Records regulations: The Federal rules restrict any use of the information to criminally investigate or prosecute any alcohol or drug abuse patient.[facility] the event this information is protected by the Federal Confidentiality of Alcohol and Drug Abuse Patient Records regulations: The Federal rules restrict any use of the information to criminally investigate or prosecute any alcohol or drug abuse patient.[facility] the event this information is protected by the Federal Confidentiality of Alcohol and Drug Abuse Patient Records regulations: The Federal rules restrict any use of the information to criminally investigate or prosecute any alcohol or drug abuse patient.[facility] the event this information is protected by the Federal Confidentiality of Alcohol and Drug Abuse Patient Records regulations: The Federal rules restrict any use of the information to criminally investigate or prosecute any alcohol or drug abuse patient.[facility] Center[facility] the event this information is protected by the Federal Confidentiality of Alcohol and Drug Abuse Patient Records regulations: The Federal rules restrict any use of the information to criminally investigate or prosecute any alcohol or drug abuse patient.[facility] CenterIn the event this information is protected by the Federal Confidentiality of Alcohol and Drug Abuse Patient Records regulations: The Federal rules restrict any use of the information to criminally investigate or prosecute any alcohol or drug abuse patient.[facility] CenterIn the event this information is protected by the Federal Confidentiality of Alcohol and Drug Abuse Patient Records regulations: The Federal rules restrict any use of the information to criminally investigate or prosecute any alcohol or drug abuse patient.[facility] CenterIn the event this information is protected by the Federal Confidentiality of Alcohol and Drug Abuse Patient Records regulations: The Federal rules restrict any use of the information to criminally investigate or prosecute any alcohol or drug abuse patient.[facility] CenterIn the event this information is protected by the Federal Confidentiality of Alcohol and Drug Abuse Patient Records regulations: The Federal rules restrict any use of the information to criminally investigate or prosecute any alcohol or drug abuse patient.[facility] CenterIn the event this information is protected by the Federal Confidentiality of Alcohol and Drug Abuse Patient Records regulations: The Federal rules restrict any use of the information to criminally investigate or prosecute any alcohol or drug abuse patient.[facility] CenterIn the event this information is protected by the Federal Confidentiality of Alcohol and Drug Abuse Patient Records regulations: The Federal rules restrict any use of the information to criminally investigate or prosecute any alcohol or drug abuse patient.[facility] CenterIn the event this information is protected by the Federal Confidentiality of Alcohol and Drug Abuse Patient Records regulations: The Federal rules restrict any use of the information to criminally investigate or prosecute any alcohol or drug abuse patient.[facility] CenterIn the event this information is protected by the Federal Confidentiality of Alcohol and Drug Abuse Patient Records regulations: The Federal rules restrict any use of the information to criminally investigate or prosecute any alcohol or drug abuse patient.[facility] CenterIn the event this information is protected by the Federal Confidentiality of Alcohol and Drug Abuse Patient Records regulations: The Federal rules restrict any use of the information to criminally investigate or prosecute any alcohol or drug abuse patient.[facility] CenterIn the event this information is protected by the Federal Confidentiality of Alcohol and Drug Abuse Patient Records regulations: The Federal rules restrict any use of the information to criminally investigate or prosecute any alcohol or drug abuse patient.[facility] CenterIn the event this information is protected by the Federal Confidentiality of Alcohol and Drug Abuse Patient Records regulations: The Federal rules restrict any use of the information to criminally investigate or prosecute any alcohol or drug abuse patient.[facility] CenterIn the event this information is protected by the Federal Confidentiality of Alcohol and Drug Abuse Patient Records regulations: The Federal rules restrict any use of the information to criminally investigate or prosecute any alcohol or drug abuse patient.[facility] CenterIn the event this information is protected by the Federal Confidentiality of Alcohol and Drug Abuse Patient Records regulations: The Federal rules restrict any use of the information to criminally investigate or prosecute any alcohol or drug abuse patient.[facility] CenterIn the event this information is protected by the Federal Confidentiality of Alcohol and Drug Abuse Patient Records regulations: The Federal rules restrict any use of the information to criminally investigate or prosecute any alcohol or drug abuse patient.[facility] CenterIn the event this information is protected by the Federal Confidentiality of Alcohol and Drug Abuse Patient Records regulations: The Federal rules restrict any use of the information to criminally investigate or prosecute any alcohol or drug abuse patient.[facility] CenterIn the event this information is protected by the Federal Confidentiality of Alcohol and Drug Abuse Patient Records regulations: The Federal rules restrict any use of the information to criminally investigate or prosecute any alcohol or drug abuse patient.[facility] CenterIn the event this information is protected by the Federal Confidentiality of Alcohol and Drug Abuse Patient Records regulations: The Federal rules restrict any use of the information to criminally investigate or prosecute any alcohol or drug abuse patient.[facility] CenterIn the event this information is protected by the Federal Confidentiality of Alcohol and Drug Abuse Patient Records regulations: The Federal rules restrict any use of the information to criminally investigate or prosecute any alcohol or drug abuse patient.[facility] CenterIn the event this information is protected by the Federal Confidentiality of Alcohol and Drug Abuse Patient Records regulations: The Federal rules restrict any use of the information to criminally investigate or prosecute any alcohol or drug abuse patient.[facility] CenterIn the event this information is protected by the Federal Confidentiality of Alcohol and Drug Abuse Patient Records regulations: The Federal rules restrict any use of the information to criminally investigate or prosecute any alcohol or drug abuse patient.[facility] CenterIn the event this information is protected by the Federal Confidentiality of Alcohol and Drug Abuse Patient Records regulations: The Federal rules restrict any use of the information to criminally investigate or prosecute any alcohol or drug abuse patient.[facility] CenterIn the event this information is protected by the Federal Confidentiality of Alcohol and Drug Abuse Patient Records regulations: The Federal rules restrict any use of the information to criminally investigate or prosecute any alcohol or drug abuse patient.[facility] CenterIn the event this information is protected by the Federal Confidentiality of Alcohol and Drug Abuse Patient Records regulations: The Federal rules restrict any use of the information to criminally investigate or prosecute any alcohol or drug abuse patient.[facility] CenterIn the event this information is protected by the Federal Confidentiality of Alcohol and Drug Abuse Patient Records regulations: The Federal rules restrict any use of the information to criminally investigate or prosecute any alcohol or drug abuse patient.[facility] CenterIn the event this information is protected by the Federal Confidentiality of Alcohol and Drug Abuse Patient Records regulations: The Federal rules restrict any use of the information to criminally investigate or prosecute any alcohol or drug abuse patient.[facility] CenterIn the event this information is protected by the Federal Confidentiality of Alcohol and Drug Abuse Patient Records regulations: The Federal rules restrict any use of the information to criminally investigate or prosecute any alcohol or drug abuse patient.[facility] CenterIn the event this information is protected by the Federal Confidentiality of Alcohol and Drug Abuse Patient Records regulations: The Federal rules restrict any use of the information to criminally investigate or prosecute any alcohol or drug abuse patient.[facility] CenterIn the event this information is protected by the Federal Confidentiality of Alcohol and Drug Abuse Patient Records regulations: The Federal rules restrict any use of the information to criminally investigate or prosecute any alcohol or drug abuse patient.[facility] CenterIn the event this information is protected by the Federal Confidentiality of Alcohol and Drug Abuse Patient Records regulations: The Federal rules restrict any use of the information to criminally investigate or prosecute any alcohol or drug abuse patient.[facility] CenterIn the event this information is protected by the Federal Confidentiality of Alcohol and Drug Abuse Patient Records regulations: The Federal rules restrict any use of the information to criminally investigate or prosecute any alcohol or drug abuse patient.[facility] CenterIn the event this information is protected by the Federal Confidentiality of Alcohol and Drug Abuse Patient Records regulations: The Federal rules restrict any use of the information to criminally investigate or prosecute any alcohol or drug abuse patient.[facility] CenterIn the event this information is protected by the Federal Confidentiality of Alcohol and Drug Abuse Patient Records regulations: The Federal rules restrict any use of the information to criminally investigate or prosecute any alcohol or drug abuse patient.[facility]In the event this information is protected by the Federal Confidentiality of Alcohol and Drug Abuse Patient Records regulations: The Federal rules restrict any use of the information to criminally investigate or prosecute any alcohol or drug abuse patient.[facility]In the event this information is protected by the Federal Confidentiality of Alcohol and Drug Abuse Patient Records regulations: The Federal rules restrict any use of the information to criminally investigate or prosecute any alcohol or drug abuse patient.[facility]In the event this information is protected by the Federal Confidentiality of Alcohol and Drug Abuse Patient Records regulations: The Federal rules restrict any use of the information to criminally investigate or prosecute any alcohol or drug abuse patient.[facility]In the event this information is protected by the Federal Confidentiality of Alcohol and Drug Abuse Patient Records regulations: The Federal rules restrict any use of the information to criminally investigate or prosecute any alcohol or drug abuse patient.[facility]In the event this information is protected by the Federal Confidentiality of Alcohol and Drug Abuse Patient Records regulations: The Federal rules restrict any use of the information to criminally investigate or prosecute any alcohol or drug abuse patient.[facility]In the event this information is protected by the Federal Confidentiality of Alcohol and Drug Abuse Patient Records regulations: The Federal rules restrict any use of the information to criminally investigate or prosecute any alcohol or drug abuse patient.[facility]In the event this information is protected by the Federal Confidentiality of Alcohol and Drug Abuse Patient Records regulations: The Federal rules restrict any use of the information to criminally investigate or prosecute any alcohol or drug abuse patient.[facility]In the event this information is protected by the Federal Confidentiality of Alcohol and Drug Abuse Patient Records regulations: The Federal rules restrict any use of the information to criminally investigate or prosecute any alcohol or drug abuse patient.[facility]In the event this information is protected by the Federal Confidentiality of Alcohol and Drug Abuse Patient Records regulations: The Federal rules restrict any use of the information to criminally investigate or prosecute any alcohol or drug abuse patient.[facility]In the event this information is protected by the Federal Confidentiality of Alcohol and Drug Abuse Patient Records regulations: The Federal rules restrict any use of the information to criminally investigate or prosecute any alcohol or drug abuse patient.[facility]In the event this information is protected by the Federal Confidentiality of Alcohol and Drug Abuse Patient Records regulations: The Federal rules restrict any use of the information to criminally investigate or prosecute any alcohol or drug abuse patient.[facility]In the event this information is protected by the Federal Confidentiality of Alcohol and Drug Abuse Patient Records regulations: The Federal rules restrict any use of the information to criminally investigate or prosecute any alcohol or drug abuse patient.[facility]In the event this information is protected by the Federal Confidentiality of Alcohol and Drug Abuse Patient Records regulations: The Federal rules restrict any use of the information to criminally investigate or prosecute any alcohol or drug abuse patient.[facility]In the event this information is protected by the Federal Confidentiality of Alcohol and Drug Abuse Patient Records regulations: The Federal rules restrict any use of the information to criminally investigate or prosecute any alcohol or drug abuse patient.[facility]In the event this information is protected by the Federal Confidentiality of Alcohol and Drug Abuse Patient Records regulations: The Federal rules restrict any use of the information to criminally investigate or prosecute any alcohol or drug abuse patient.[facility]In the event this information is protected by the Federal Confidentiality of Alcohol and Drug Abuse Patient Records regulations: The Federal rules restrict any use of the information to criminally investigate or prosecute any alcohol or drug abuse patient.[facility]In the event this information is protected by the Federal Confidentiality of Alcohol and Drug Abuse Patient Records regulations: The Federal rules restrict any use of the information to criminally investigate or prosecute any alcohol or drug abuse patient.[facility]In the event this information is protected by the Federal Confidentiality of Alcohol and Drug Abuse Patient Records regulations: The Federal rules restrict any use of the information to criminally investigate or prosecute any alcohol or drug abuse patient.[facility]In the event this information is protected by the Federal Confidentiality of Alcohol and Drug Abuse Patient Records regulations: The Federal rules restrict any use of the information to criminally investigate or prosecute any alcohol or drug abuse patient.[facility]In the event this information is protected by the Federal Confidentiality of Alcohol and Drug Abuse Patient Records regulations: The Federal rules restrict any use of the information to criminally investigate or prosecute any alcohol or drug abuse patient.[facility]In the event this information is protected by the Federal Confidentiality of Alcohol and Drug Abuse Patient Records regulations: The Federal rules restrict any use of the information to criminally investigate or prosecute any alcohol or drug abuse patient.[facility]In the event this information is protected by the Federal Confidentiality of Alcohol and Drug Abuse Patient Records regulations: The Federal rules restrict any use of the information to criminally investigate or prosecute any alcohol or drug abuse patient.[facility]In the event this information is protected by the Federal Confidentiality of Alcohol and Drug Abuse Patient Records regulations: The Federal rules restrict any use of the information to criminally investigate or prosecute any alcohol or drug abuse patient.[facility]In the event this information is protected by the Federal Confidentiality of Alcohol and Drug Abuse Patient Records regulations: The Federal rules restrict any use of the information to criminally investigate or prosecute any alcohol or drug abuse patient.[facility]In the event this information is protected by the Federal Confidentiality of Alcohol and Drug Abuse Patient Records regulations: The Federal rules restrict any use of the information to criminally investigate or prosecute any alcohol or drug abuse patient.[facility]In the event this information is protected by the Federal Confidentiality of Alcohol and Drug Abuse Patient Records regulations: The Federal rules restrict any use of the information to criminally investigate or prosecute any alcohol or drug abuse patient.[facility]In the event this information is protected by the Federal Confidentiality of Alcohol and Drug Abuse Patient Records regulations: The Federal rules restrict any use of the information to criminally investigate or prosecute any alcohol or drug abuse patient.[facility]In the event this information is protected by the Federal Confidentiality of Alcohol and Drug Abuse Patient Records regulations: The Federal rules restrict any use of the information to criminally investigate or prosecute any alcohol or drug abuse patient.[facility]In the event this information is protected by the Federal Confidentiality of Alcohol and Drug Abuse Patient Records regulations: The Federal rules restrict any use of the information to criminally investigate or prosecute any alcohol or drug abuse patient.[facility]In the event this information is protected by the Federal Confidentiality of Alcohol and Drug Abuse Patient Records regulations: The Federal rules restrict any use of the information to criminally investigate or prosecute any alcohol or drug abuse patient.[facility]In the event this information is protected by the Federal Confidentiality of Alcohol and Drug Abuse Patient Records regulations: The Federal rules restrict any use of the information to criminally investigate or prosecute any alcohol or drug abuse patient.[facility]In the event this information is protected by the Federal Confidentiality of Alcohol and Drug Abuse Patient Records regulations: The Federal rules restrict any use of the information to criminally investigate or prosecute any alcohol or drug abuse patient.[facility]In the event this information is protected by the Federal Confidentiality of Alcohol and Drug Abuse Patient Records regulations: The Federal rules restrict any use of the information to criminally investigate or prosecute any alcohol or drug abuse patient.[facility]In the event this information is protected by the Federal Confidentiality of Alcohol and Drug Abuse Patient Records regulations: The Federal rules restrict any use of the information to criminally investigate or prosecute any alcohol or drug abuse patient.[facility]In the event this information is protected by the Federal Confidentiality of Alcohol and Drug Abuse Patient Records regulations: The Federal rules restrict any use of the information to criminally investigate or prosecute any alcohol or drug abuse patient.[facility]In the event this information is protected by the Federal Confidentiality of Alcohol and Drug Abuse Patient Records regulations: The Federal rules restrict any use of the information to criminally investigate or prosecute any alcohol or drug abuse patient.[facility]In the event this information is protected by the Federal Confidentiality of Alcohol and Drug Abuse Patient Records regulations: The Federal rules restrict any use of the information to criminally investigate or prosecute any alcohol or drug abuse patient.[facility]In the event this information is protected by the Federal Confidentiality of Alcohol and Drug Abuse Patient Records regulations: The Federal rules restrict any use of the information to criminally investigate or prosecute any alcohol or drug abuse patient.[facility]In the event this information is protected by the Federal Confidentiality of Alcohol and Drug Abuse Patient Records regulations: The Federal rules restrict any use of the information to criminally investigate or prosecute any alcohol or drug abuse patient.[facility]In the event this information is protected by the Federal Confidentiality of Alcohol and Drug Abuse Patient Records regulations: The Federal rules restrict any use of the information to criminally investigate or prosecute any alcohol or drug abuse patient.[facility]In the event this information is protected by the Federal Confidentiality of Alcohol and Drug Abuse Patient Records regulations: The Federal rules restrict any use of the information to criminally investigate or prosecute any alcohol or drug abuse patient.[facility]In the event this information is protected by the Federal Confidentiality of Alcohol and Drug Abuse Patient Records regulations: The Federal rules restrict any use of the information to criminally investigate or prosecute any alcohol or drug abuse patient.[facility]In the event this information is protected by the Federal Confidentiality of Alcohol and Drug Abuse Patient Records regulations: The Federal rules restrict any use of the information to criminally investigate or prosecute any alcohol or drug abuse patient.[facility]In the event this information is protected by the Federal Confidentiality of Alcohol and Drug Abuse Patient Records regulations: The Federal rules restrict any use of the information to criminally investigate or prosecute any alcohol or drug abuse patient.[facility]In the event this information is protected by the Federal Confidentiality of Alcohol and Drug Abuse Patient Records regulations: The Federal rules restrict any use of the information to criminally investigate or prosecute any alcohol or drug abuse patient.[facility]In the event this information is protected by the Federal Confidentiality of Alcohol and Drug Abuse Patient Records regulations: The Federal rules restrict any use of the information to criminally investigate or prosecute any alcohol or drug abuse patient.[facility]In the event this information is protected by the Federal Confidentiality of Alcohol and Drug Abuse Patient Records regulations: The Federal rules restrict any use of the information to criminally investigate or prosecute any alcohol or drug abuse patient.[facility]In the event this information is protected by the Federal Confidentiality of Alcohol and Drug Abuse Patient Records regulations: The Federal rules restrict any use of the information to criminally investigate or prosecute any alcohol or drug abuse patient.[facility]In the event this information is protected by the Federal Confidentiality of Alcohol and Drug Abuse Patient Records regulations: The Federal rules restrict any use of the information to criminally investigate or prosecute any alcohol or drug abuse patient.[facility]In the event this information is protected by the Federal Confidentiality of Alcohol and Drug Abuse Patient Records regulations: The Federal rules restrict any use of the information to criminally investigate or prosecute any alcohol or drug abuse patient.[facility]In the event this information is protected by the Federal Confidentiality of Alcohol and Drug Abuse Patient Records regulations: The Federal rules restrict any use of the information to criminally investigate or prosecute any alcohol or drug abuse patient.[facility] CenterIn the event this information is protected by the Federal Confidentiality of Alcohol and Drug Abuse Patient Records regulations: The Federal rules restrict any use of the information to criminally investigate or prosecute any alcohol or drug abuse patient.[facility] CenterIn the event this information is protected by the Federal Confidentiality of Alcohol and Drug Abuse Patient Records regulations: The Federal rules restrict any use of the information to criminally investigate or prosecute any alcohol or drug abuse patient.[facility] CenterIn the event this information is protected by the Federal Confidentiality of Alcohol and Drug Abuse Patient Records regulations: The Federal rules restrict any use of the information to criminally investigate or prosecute any alcohol or drug abuse patient.[facility] CenterIn the event this information is protected by the Federal Confidentiality of Alcohol and Drug Abuse Patient Records regulations: The Federal rules restrict any use of the information to criminally investigate or prosecute any alcohol or drug abuse patient.[facility] CenterIn the event this information is protected by the Federal Confidentiality of Alcohol and Drug Abuse Patient Records regulations: The Federal rules restrict any use of the information to criminally investigate or prosecute any alcohol or drug abuse patient.[facility] CenterIn the event this information is protected by the Federal Confidentiality of Alcohol and Drug Abuse Patient Records regulations: The Federal rules restrict any use of the information to criminally investigate or prosecute any alcohol or drug abuse patient.[facility] CenterIn the event this information is protected by the Federal Confidentiality of Alcohol and Drug Abuse Patient Records regulations: The Federal rules restrict any use of the information to criminally investigate or prosecute any alcohol or drug abuse patient.[facility] CenterIn the event this information is protected by the Federal Confidentiality of Alcohol and Drug Abuse Patient Records regulations: The Federal rules restrict any use of the information to criminally investigate or prosecute any alcohol or drug abuse patient.[facility] CenterIn the event this information is protected by the Federal Confidentiality of Alcohol and Drug Abuse Patient Records regulations: The Federal rules restrict any use of the information to criminally investigate or prosecute any alcohol or drug abuse patient.[facility] CenterIn the event this information is protected by the Federal Confidentiality of Alcohol and Drug Abuse Patient Records regulations: The Federal rules restrict any use of the information to criminally investigate or prosecute any alcohol or drug abuse patient.[facility] CenterIn the event this information is protected by the Federal Confidentiality of Alcohol and Drug Abuse Patient Records regulations: The Federal rules restrict any use of the information to criminally investigate or prosecute any alcohol or drug abuse patient.[facility] CenterIn the event this information is protected by the Federal Confidentiality of Alcohol and Drug Abuse Patient Records regulations: The Federal rules restrict any use of the information to criminally investigate or prosecute any alcohol or drug abuse patient.[facility] CenterIn the event this information is protected by the Federal Confidentiality of Alcohol and Drug Abuse Patient Records regulations: The Federal rules restrict any use of the information to criminally investigate or prosecute any alcohol or drug abuse patient.[facility] CenterIn the event this information is protected by the Federal Confidentiality of Alcohol and Drug Abuse Patient Records regulations: The Federal rules restrict any use of the information to criminally investigate or prosecute any alcohol or drug abuse patient.[facility] CenterIn the event this information is protected by the Federal Confidentiality of Alcohol and Drug Abuse Patient Records regulations: The Federal rules restrict any use of the information to criminally investigate or prosecute any alcohol or drug abuse patient.[facility] CenterIn the event this information is protected by the Federal Confidentiality of Alcohol and Drug Abuse Patient Records regulations: The Federal rules restrict any use of the information to criminally investigate or prosecute any alcohol or drug abuse patient.[facility] CenterIn the event this information is protected by the Federal Confidentiality of Alcohol and Drug Abuse Patient Records regulations: The Federal rules restrict any use of the information to criminally investigate or prosecute any alcohol or drug abuse patient.[facility] CenterIn the event this information is protected by the Federal Confidentiality of Alcohol and Drug Abuse Patient Records regulations: The Federal rules restrict any use of the information to criminally investigate or prosecute any alcohol or drug abuse patient.[facility] CenterIn the event this information is protected by the Federal Confidentiality of Alcohol and Drug Abuse Patient Records regulations: The Federal rules restrict any use of the information to criminally investigate or prosecute any alcohol or drug abuse patient.[facility] CenterIn the event this information is protected by the Federal Confidentiality of Alcohol and Drug Abuse Patient Records regulations: The Federal rules restrict any use of the information to criminally investigate or prosecute any alcohol or drug abuse patient.[facility] CenterIn the event this information is protected by the Federal Confidentiality of Alcohol and Drug Abuse Patient Records regulations: The Federal rules restrict any use of the information to criminally investigate or prosecute any alcohol or drug abuse patient.[facility] CenterIn the event this information is protected by the Federal Confidentiality of Alcohol and Drug Abuse Patient Records regulations: The Federal rules restrict any use of the information to criminally investigate or prosecute any alcohol or drug abuse patient.[facility] CenterIn the event this information is protected by the Federal Confidentiality of Alcohol and Drug Abuse Patient Records regulations: The Federal rules restrict any use of the information to criminally investigate or prosecute any alcohol or drug abuse patient.[facility] CenterIn the event this information is protected by the Federal Confidentiality of Alcohol and Drug Abuse Patient Records regulations: The Federal rules restrict any use of the information to criminally investigate or prosecute any alcohol or drug abuse patient.[facility] CenterIn the event this information is protected by the Federal Confidentiality of Alcohol and Drug Abuse Patient Records regulations: The Federal rules restrict any use of the information to criminally investigate or prosecute any alcohol or drug abuse patient.[facility] CenterIn the event this information is protected by the Federal Confidentiality of Alcohol and Drug Abuse Patient Records regulations: The Federal rules restrict any use of the information to criminally investigate or prosecute any alcohol or drug abuse patient.[facility] CenterIn the event this information is protected by the Federal Confidentiality of Alcohol and Drug Abuse Patient Records regulations: The Federal rules restrict any use of the information to criminally investigate or prosecute any alcohol or drug abuse patient.[facility] CenterIn the event this information is protected by the Federal Confidentiality of Alcohol and Drug Abuse Patient Records regulations: The Federal rules restrict any use of the information to criminally investigate or prosecute any alcohol or drug abuse patient.[facility] CenterIn the event this information is protected by the Federal Confidentiality of Alcohol and Drug Abuse Patient Records regulations: The Federal rules restrict any use of the information to criminally investigate or prosecute any alcohol or drug abuse patient.[facility] CenterIn the event this information is protected by the Federal Confidentiality of Alcohol and Drug Abuse Patient Records regulations: The Federal rules restrict any use of the information to criminally investigate or prosecute any alcohol or drug abuse patient.[facility] CenterIn the event this information is protected by the Federal Confidentiality of Alcohol and Drug Abuse Patient Records regulations: The Federal rules restrict any use of the information to criminally investigate or prosecute any alcohol or drug abuse patient.[facility] CenterIn the event this information is protected by the Federal Confidentiality of Alcohol and Drug Abuse Patient Records regulations: The Federal rules restrict any use of the information to criminally investigate or prosecute any alcohol or drug abuse patient.[facility] CenterIn the event this information is protected by the Federal Confidentiality of Alcohol and Drug Abuse Patient Records regulations: The Federal rules restrict any use of the information to criminally investigate or prosecute any alcohol or drug abuse patient.[facility] CenterIn the event this information is protected by the Federal Confidentiality of Alcohol and Drug Abuse Patient Records regulations: The Federal rules restrict any use of the information to criminally investigate or prosecute any alcohol or drug abuse patient.[facility] CenterIn the event this information is protected by the Federal Confidentiality of Alcohol and Drug Abuse Patient Records regulations: The Federal rules restrict any use of the information to criminally investigate or prosecute any alcohol or drug abuse patient.[facility] CenterIn the event this information is protected by the Federal Confidentiality of Alcohol and Drug Abuse Patient Records regulations: The Federal rules restrict any use of the information to criminally investigate or prosecute any alcohol or drug abuse patient.[facility]In the event this information is protected by the Federal Confidentiality of Alcohol and Drug Abuse Patient Records regulations: The Federal rules restrict any use of the information to criminally investigate or prosecute any alcohol or drug abuse patient.[facility] CenterIn the event this information is protected by the Federal Confidentiality of Alcohol and Drug Abuse Patient Records regulations: The Federal rules restrict any use of the information to criminally investigate or prosecute any alcohol or drug abuse patient.[facility]In the event this information is protected by the Federal Confidentiality of Alcohol and Drug Abuse Patient Records regulations: The Federal rules restrict any use of the information to criminally investigate or prosecute any alcohol or drug abuse patient.[facility] CenterIn the event this information is protected by the Federal Confidentiality of Alcohol and Drug Abuse Patient Records regulations: The Federal rules restrict any use of the information to criminally investigate or prosecute any alcohol or drug abuse patient.[facility]In the event this information is protected by the Federal Confidentiality of Alcohol and Drug Abuse Patient Records regulations: The Federal rules restrict any use of the information to criminally investigate or prosecute any alcohol or drug abuse patient.[facility]In the event this information is protected by the Federal Confidentiality of Alcohol and Drug Abuse Patient Records regulations: The Federal rules restrict any use of the information to criminally investigate or prosecute any alcohol or drug abuse patient.[facility]In the event this information is protected by the Federal Confidentiality of Alcohol and Drug Abuse Patient Records regulations: The Federal rules restrict any use of the information to criminally investigate or prosecute any alcohol or drug abuse patient.[facility]In the event this information is protected by the Federal Confidentiality of Alcohol and Drug Abuse Patient Records regulations: The Federal rules restrict any use of the information to criminally investigate or prosecute any alcohol or drug abuse patient.[facility]In the event this information is protected by the Federal Confidentiality of Alcohol and Drug Abuse Patient Records regulations: The Federal rules restrict any use of the information to criminally investigate or prosecute any alcohol or drug abuse patient.[facility]In the event this information is protected by the Federal Confidentiality of Alcohol and Drug Abuse Patient Records regulations: The Federal rules restrict any use of the information to criminally investigate or prosecute any alcohol or drug abuse patient.[facility]In the event this information is protected by the Federal Confidentiality of Alcohol and Drug Abuse Patient Records regulations: The Federal rules restrict any use of the information to criminally investigate or prosecute any alcohol or drug abuse patient.[facility]In the event this information is protected by the Federal Confidentiality of Alcohol and Drug Abuse Patient Records regulations: The Federal rules restrict any use of the information to criminally investigate or prosecute any alcohol or drug abuse patient.[facility]In the event this information is protected by the Federal Confidentiality of Alcohol and Drug Abuse Patient Records regulations: The Federal rules restrict any use of the information to criminally investigate or prosecute any alcohol or drug abuse patient.[facility]In the event this information is protected by the Federal Confidentiality of Alcohol and Drug Abuse Patient Records regulations: The Federal rules restrict any use of the information to criminally investigate or prosecute any alcohol or drug abuse patient.[facility]In the event this information is protected by the Federal Confidentiality of Alcohol and Drug Abuse Patient Records regulations: The Federal rules restrict any use of the information to criminally investigate or prosecute any alcohol or drug abuse patient.[facility]In the event this information is protected by the Federal Confidentiality of Alcohol and Drug Abuse Patient Records regulations: The Federal rules restrict any use of the information to criminally investigate or prosecute any alcohol or drug abuse patient.[facility]In the event this information is protected by the Federal Confidentiality of Alcohol and Drug Abuse Patient Records regulations: The Federal rules restrict any use of the information to criminally investigate or prosecute any alcohol or drug abuse patient.[facility]In the event this information is protected by the Federal Confidentiality of Alcohol and Drug Abuse Patient Records regulations: The Federal rules restrict any use of the information to criminally investigate or prosecute any alcohol or drug abuse patient.[facility]In the event this information is protected by the Federal Confidentiality of Alcohol and Drug Abuse Patient Records regulations: The Federal rules restrict any use of the information to criminally investigate or prosecute any alcohol or drug abuse patient.[facility]In the event this information is protected by the Federal Confidentiality of Alcohol and Drug Abuse Patient Records regulations: The Federal rules restrict any use of the information to criminally investigate or prosecute any alcohol or drug abuse patient.[facility]In the event this information is protected by the Federal Confidentiality of Alcohol and Drug Abuse Patient Records regulations: The Federal rules restrict any use of the information to criminally investigate or prosecute any alcohol or drug abuse patient.[facility]In the event this information is protected by the Federal Confidentiality of Alcohol and Drug Abuse Patient Records regulations: The Federal rules restrict any use of the information to criminally investigate or prosecute any alcohol or drug abuse patient.[facility]In the event this information is protected by the Federal Confidentiality of Alcohol and Drug Abuse Patient Records regulations: The Federal rules restrict any use of the information to criminally investigate or prosecute any alcohol or drug abuse patient.[facility]In the event this information is protected by the Federal Confidentiality of Alcohol and Drug Abuse Patient Records regulations: The Federal rules restrict any use of the information to criminally investigate or prosecute any alcohol or drug abuse patient.[facility]In the event this information is protected by the Federal Confidentiality of Alcohol and Drug Abuse Patient Records regulations: The Federal rules restrict any use of the information to criminally investigate or prosecute any alcohol or drug abuse patient.[facility]In the event this information is protected by the Federal Confidentiality of Alcohol and Drug Abuse Patient Records regulations: The Federal rules restrict any use of the information to criminally investigate or prosecute any alcohol or drug abuse patient.[facility]In the event this information is protected by the Federal Confidentiality of Alcohol and Drug Abuse Patient Records regulations: The Federal rules restrict any use of the information to criminally investigate or prosecute any alcohol or drug abuse patient.[facility]In the event this information is protected by the Federal Confidentiality of Alcohol and Drug Abuse Patient Records regulations: The Federal rules restrict any use of the information to criminally investigate or prosecute any alcohol or drug abuse patient.[facility]In the event this information is protected by the Federal Confidentiality of Alcohol and Drug Abuse Patient Records regulations: The Federal rules restrict any use of the information to criminally investigate or prosecute any alcohol or drug abuse patient.[facility]In the event this information is protected by the Federal Confidentiality of Alcohol and Drug Abuse Patient Records regulations: The Federal rules restrict any use of the information to criminally investigate or prosecute any alcohol or drug abuse patient.[facility]In the event this information is protected by the Federal Confidentiality of Alcohol and Drug Abuse Patient Records regulations: The Federal rules restrict any use of the information to criminally investigate or prosecute any alcohol or drug abuse patient.[facility]In the event this information is protected by the Federal Confidentiality of Alcohol and Drug Abuse Patient Records regulations: The Federal rules restrict any use of the information to criminally investigate or prosecute any alcohol or drug abuse patient.[facility]In the event this information is protected by the Federal Confidentiality of Alcohol and Drug Abuse Patient Records regulations: The Federal rules restrict any use of the information to criminally investigate or prosecute any alcohol or drug abuse patient.[facility]In the event this information is protected by the Federal Confidentiality of Alcohol and Drug Abuse Patient Records regulations: The Federal rules restrict any use of the information to criminally investigate or prosecute any alcohol or drug abuse patient.[facility]In the event this information is protected by the Federal Confidentiality of Alcohol and Drug Abuse Patient Records regulations: The Federal rules restrict any use of the information to criminally investigate or prosecute any alcohol or drug abuse patient.[facility]In the event this information is protected by the Federal Confidentiality of Alcohol and Drug Abuse Patient Records regulations: The Federal rules restrict any use of the information to criminally investigate or prosecute any alcohol or drug abuse patient.[facility]In the event this information is protected by the Federal Confidentiality of Alcohol and Drug Abuse Patient Records regulations: The Federal rules restrict any use of the information to criminally investigate or prosecute any alcohol or drug abuse patient.[facility]In the event this information is protected by the Federal Confidentiality of Alcohol and Drug Abuse Patient Records regulations: The Federal rules restrict any use of the information to criminally investigate or prosecute any alcohol or drug abuse patient.[facility]In the event this information is protected by the Federal Confidentiality of Alcohol and Drug Abuse Patient Records regulations: The Federal rules restrict any use of the information to criminally investigate or prosecute any alcohol or drug abuse patient.[facility]In the event this information is protected by the Federal Confidentiality of Alcohol and Drug Abuse Patient Records regulations: The Federal rules restrict any use of the information to criminally investigate or prosecute any alcohol or drug abuse patient.[facility]In the event this information is protected by the Federal Confidentiality of Alcohol and Drug Abuse Patient Records regulations: The Federal rules restrict any use of the information to criminally investigate or prosecute any alcohol or drug abuse patient.[facility]In the event this information is protected by the Federal Confidentiality of Alcohol and Drug Abuse Patient Records regulations: The Federal rules restrict any use of the information to criminally investigate or prosecute any alcohol or drug abuse patient.[facility]In the event this information is protected by the Federal Confidentiality of Alcohol and Drug Abuse Patient Records regulations: The Federal rules restrict any use of the information to criminally investigate or prosecute any alcohol or drug abuse patient.[facility]In the event this information is protected by the Federal Confidentiality of Alcohol and Drug Abuse Patient Records regulations: The Federal rules restrict any use of the information to criminally investigate or prosecute any alcohol or drug abuse patient.[facility]In the event this information is protected by the Federal Confidentiality of Alcohol and Drug Abuse Patient Records regulations: The Federal rules restrict any use of the information to criminally investigate or prosecute any alcohol or drug abuse patient.[facility]In the event this information is protected by the Federal Confidentiality of Alcohol and Drug Abuse Patient Records regulations: The Federal rules restrict any use of the information to criminally investigate or prosecute any alcohol or drug abuse patient.[facility]In the event this information is protected by the Federal Confidentiality of Alcohol and Drug Abuse Patient Records regulations: The Federal rules restrict any use of the information to criminally investigate or prosecute any alcohol or drug abuse patient.[facility]In the event this information is protected by the Federal Confidentiality of Alcohol and Drug Abuse Patient Records regulations: The Federal rules restrict any use of the information to criminally investigate or prosecute any alcohol or drug abuse patient.[facility] CenterIn the event this information is protected by the Federal Confidentiality of Alcohol and Drug Abuse Patient Records regulations: The Federal rules restrict any use of the information to criminally investigate or prosecute any alcohol or drug abuse patient.[facility] CenterIn the event this information is protected by the Federal Confidentiality of Alcohol and Drug Abuse Patient Records regulations: The Federal rules restrict any use of the information to criminally investigate or prosecute any alcohol or drug abuse patient.[facility] CenterIn the event this information is protected by the Federal Confidentiality of Alcohol and Drug Abuse Patient Records regulations: The Federal rules restrict any use of the information to criminally investigate or prosecute any alcohol or drug abuse patient.[facility] CenterIn the event this information is protected by the Federal Confidentiality of Alcohol and Drug Abuse Patient Records regulations: The Federal rules restrict any use of the information to criminally investigate or prosecute any alcohol or drug abuse patient.[facility] CenterIn the event this information is protected by the Federal Confidentiality of Alcohol and Drug Abuse Patient Records regulations: The Federal rules restrict any use of the information to criminally investigate or prosecute any alcohol or drug abuse patient.[facility] CenterIn the event this information is protected by the Federal Confidentiality of Alcohol and Drug Abuse Patient Records regulations: The Federal rules restrict any use of the information to criminally investigate or prosecute any alcohol or drug abuse patient.[facility] CenterIn the event this information is protected by the Federal Confidentiality of Alcohol and Drug Abuse Patient Records regulations: The Federal rules restrict any use of the information to criminally investigate or prosecute any alcohol or drug abuse patient.[facility] CenterIn the event this information is protected by the Federal Confidentiality of Alcohol and Drug Abuse Patient Records regulations: The Federal rules restrict any use of the information to criminally investigate or prosecute any alcohol or drug abuse patient.[facility] Reason for Visit (unrecogniz ed section and content) Reason Comments Follow Up Specialty Diagnoses / Procedures Referred By Contlety t Referred To Contact Family Medicine / FAMILY MEDICINE Diagnoses Follow up. Procedures 4C EST Ivette Grimes MD [address] [place] [address] Ivette Grimes MD [address] [place] [address] Referral ID Status Reason Start Date Expiration Date V isits Requested Visits Authorized [id number] Pending Review 01/31/2023 05/01/2023 1 1 Reason Comments New Patient Specialty Diagnoses / Procedures Referred By Contac t Referred To Contact Pain Management Diagnoses Chronic left shoulder pain Procedures CONSULT TO PAIN MGT OFFICE/OUTPATIENT NEW HIGH MDM 60-74 [place] [address] [place] [address] Referral ID Status Reason Start Date Expiration Date V isits Requested Visits Authorized [id number] Closed PCP Requested Referral 01/22/2022 01/22/2023 1 [...] migrainosus Procedures CONSULT TO NEUROLOGY OFFICE/OUTPATIENT NEW HIGH MDM 60-74 MINUTES Ivette Grimes MD [address] [place] [address] Referral ID Status Reason Start Date Expiration Date V isits Requested Visits Authorized [id number] Closed PCP Requested Referral 12/25/2021 12/25/2022 1 1 Reason Onset Date Comments Refill Request 04/16/2022 Reason Comments Follow Up shoulder pain, switc h medication back to gabapentin Specialty Diagnoses / Procedures Referred By Contac t Referred To Contact Family Practice / FAMILY MEDICINE Diagnoses Follow-up exam follow up Procedures OFFICE/OUTPATIENT ESTABLISHED HIGH MDM 40-54 MIN MYC OFFICE VISIT Ivette Grimes MD [address] [place] [address] Ivette Grimes MD [address] [place] [id number] Referral ID Status Reason Start Date Expiration Date Visits Re quested Visits Authorized [id number] Closed 04/17/2022 11/03/2022 1 1 Reason Onset [...] PROCEDURE 20 Elle Sanchez MD [address] [address] Elle Sanchez MD [address] [place] [address] Referral ID Status Reason Start Date Expiration Date Visits Re quested Visits Authorized [id number] Closed 05/10/2022 06/10/2022 1 1 Reason Comments Procedure Follow Up Reason Comments Follow Up Specialty Diagnoses / Procedures Referred By Contac t Referred To Contact Pain Management / PAIN MANAGEMENT Diagnoses OV & follow up inj Procedures OFFICE/[place] [facility] [place] 30-39 [place] EST PATIENT Elle Sanchez MD [address] [address] Adelina Mason, THOM.[facility] [address] [place] [address] Referral ID Status Reason Start Date Expiration Date Visits Re quested Visits Authorized [id number] Closed 11/04/2021 11/03/2022 1 1 Reason Comments Appointment Reason Comments Headache follow up Specialty Diagnoses / Procedures Referred By Contac t Referred To Contact Neurology Diagnoses Migraine with aura, not intractable, without status migrainosus Procedures CONSULT TO NEUROLOGY OFFICE/OUTPATIENT [facility] 60-74 MINUTES Ivette Grimes MD [address] [place] [address] Reason Comments Orders Reason Onset Date Comments Refill Request 06/22/2022 Reason Onset Date Comments Refill Request 07/10/2022 Reason Comments Patient Update Injection questions Reason Comments Chronic Migraine X 6-7 years Specialty Diagnoses / Procedures Referred By Contac t Referred To Contact Diagnoses Intractable migraine without aura and without status migrainosus Procedures CONSULT TO HEADACHE CLINIC OFFICE/OUTPATIENT [facility] MDM 60-74 MINUTES Tara Gillette, THOM.[employer] [address] [place] [address] Referral ID Status Reason Start Date Expiration Date V isits Requested Visits Authorized [id number] Closed PCP Requested Referral 06/07/2022 06/07/2023 1 [...] Diagnoses Follow-up exam follow up Procedures OFFICE/OUTPATIENT [facility] 40-54 MIN MYC OFFICE VISIT Ivette Grimes MD [facility] [place] [address] Ivette Grimes MD [address] [place] [address] Referral ID Status Reason Start Date Expiration Date V isits Requested Visits Authorized [id number] Authorized 04/17/2022 11/03/2022 99 99 Reason Comments Patient Update Reason Comments Follow Up Acute Visit Reason Comments Fatigue Specialty Diagnoses / Procedures Referred By Petra meek Referred To Contact Family Medicine / FAMILY MEDICINE Diagnoses dizzy-follow up from virtual with Dr Bianchi 09/03 Procedures 4C EST Ivette Grimes MD [address] [place] [address] Ivette Grimes MD [address] [place] [address] Referral ID Status Reason Start Date Expiration Date Visits Re quested Visits Authorized [id number] Closed 09/04/2022 12/03/2022 1 1 Reason Onset [...] MINUTES VIDEO PSYC/PSYL NEW Self Grace Coronel, AIR CONDITIONING UNIT ASSEMBLER.[employer] SPECIALIST [address] [place] [address] Referral ID Status Reason Start Date Expiration Date Visits Re quested Visits Authorized [id number] Closed 11/04/2021 11/03/2022 1 1 Reason Comments Follow Up Pain (Shoulder Pain) Left Specialty Diagnoses / Procedures Referred By Contac t Referred To Contact Pain Management / PAIN MANAGEMENT Diagnoses Examination wants to discuss options since Insurance denied RFA Procedures OFFICE/OUTPATIENT ESTABLISHED MOD MDM 30-39 MIN EST PATIENT Self Adelina Mason, AIR CONDITIONING UNIT ASSEMBLER.STEP DOWN SPECIALIST [address] [place] [address] Referral ID Status Reason Start Date Expiration Date V isits Requested Visits Authorized [id number] Closed Patient Cleared - Admin/Chairm an/Director advise to proceed 11/08/2022 02/06/2023 1 1 Reason Onset Date Comments Refill Request 11/15/2022 Reason Onset Date Comments Refill Request 11/23/2022 Reason Comments ER F/U Reason Comments Patient Question [place] appointment on 12/05/22 Reason Comments Acute Visit [...] referral botox 200 units every 90 days [id number] Karen Bansal, AIR CONDITIONING UNIT ASSEMBLER.STEP DOWN SPECIALIST [address] [place] [address] Neur Adult Main [address] [phone] Referral ID Status Reason Start Date Expiration Date V isits Requested Visits Authorized [id number] Authorized 08/15/2022 01/30/2023 2 2 Reason Comments [...] Referred By Contac t Referred To Contact [employer] Diagnoses annual Procedures EST I ANNUAL PATIENT Self Galina Camacho MD [address] [place] [address] Referral ID Status Reason Start Date Expiration Date V isits Requested Visits Authorized [id number] Closed Patient Cleared - INN Insurance Found [...] due on 04/22/23 Fatuma Beckford PA-C [address] [address] Neur Adult Main [address] [phone] Referral ID Status Reason Start Date Expiration Date V isits Requested Visits Authorized [id number] Authorized 04/02/2023 04/02/2024 4 4 Reason Comments Pt requesting Boot Reason Comments Follow Up Reason Comments Follow Up MRI results. Reason Onset Date Comments Refill Request 06/08/2023 Reason Comments New Bone spurs Pain Bone spurs Reason Onset Date Comments Refill Request 07/05/2023 Reason Comments Forms H preventative car e Reason Onset Date Comments [...] Patient due on 04/22/23 Fatuma Beckford PA-C [address] [place] [address] [place] [address] Neur Adult Main [address] [place] [address] Referral ID Status Reason Start Date Expiration Date Visits Re quested Visits Authorized [id number] Closed 04/02/2023 04/02/2024 4 4 Reason Comments [...] FACIAL/TRIGEM/CERV MUSC MIGRAINE Fatuma Beckford PA-C [address] [place] [address] Lindsey [place] [address] [place] [address] Referral ID Status Reason Start Date Expiration Date V isits Requested Visits Authorized [id number] Authorized 07/01/2024 11/03/2024 99 99 Reason Onset [...] Care Teams (unrecognized sec tion and content) Paunch Trimmer Relationship Specialty Start Date End Date Ivette Grimes MD [address] [place] [address] PCP - General Family Practice 11/21/13 [facility] [address] [place] [address] Pharmacist Pharmacy 05/19/20 Paunch Trimmer Relationship Specialty Start Date End Date Ivette Grimes MD [address] [place], [place] [address]991 PCP - General Family Practice 11/21/13 [facility] [address] [place] [address] Pharmacist Pharmacy 05/19/20 Paunch Trimmer Relationship Specialty Start Date End Date Ivette Grimes MD [address] [place] [address] PCP - General Family Practice 11/21/13 [facility] [address] [place] [address] Pharmacist Pharmacy 05/19/20 Paunch Trimmer Relationship Specialty Start Date End Date Ivette Grimes MD [address] [place] [address] PCP - General Family Practice 11/21/13 Jagdish Carballo, [facility] [address] [place] [address] Pharmacist Pharmacy 05/19/20 Paunch Trimmer Relationship Specialty Start Date End Date Ivette Grimes MD [address] [place] [address] PCP - General Family Practice 11/21/13 Jagdish Carabllo, [facility] [address] [place] [address] Pharmacist Pharmacy 05/19/20 Paunch Trimmer Relationship Specialty Start Date End Date Ivette Grimes MD [address] [place] [address] PCP - General Family Practice 11/21/13 Jagdish Carballo, [facility] [address] [place] [address] Pharmacist Pharmacy 05/19/20 Paunch Trimmer Relationship Specialty Start Date End Date Ivette Grimes MD [address] [place] [address] PCP - General Family Practice 11/21/13 Jagdish Carballo, [facility] [address] [place] [address] Pharmacist Pharmacy 05/19/20 Paunch Trimmer Relationship Specialty Start Date End Date Ivette Grimes MD [address] [facility] [place] [address] PCP - General Family Practice 11/21/13 [facility] [address] [place] [address] Pharmacist Pharmacy 05/19/20 Paunch Trimmer Relationship Specialty Start Date End Date Ivette Grimes MD [address] [facility] [place] [address] PCP - General Family Practice 11/21/13 [facility] [address] [facility] [place] [address] Pharmacist Pharmacy 05/19/20 Paunch Trimmer Relationship Specialty Start Date End Date Ivette Grimes MD [address] [place] [address] PCP - General Family Practice 11/21/13 [facility] [address] [facility] [place] [address] Pharmacist Pharmacy 05/19/20 Paunch Trimmer Relationship Specialty Start Date End Date Ivette Grimes MD [address] [facility] [place] [address] PCP - General Family Practice 11/21/13 [facility] [address] [facility] [place] [address] Pharmacist Pharmacy 05/19/20 Paunch Trimmer Relationship Specialty Start Date End Date Ivette Grimes MD [address] [place] [address] PCP - General Family Practice 11/21/13 Jagdish Carballo, [facility] [address] [place] [address] Pharmacist Pharmacy 05/19/20 Paunch Trimmer Relationship Specialty Start Date End Date Ivette Grimes MD [address] [facility] [place] [address] PCP - General Family Practice 11/21/13 Jagdish Carballo, [facility] [address] [facility] [place] [address] Pharmacist Pharmacy 05/19/20 Paunch Trimmer Relationship Specialty Start Date End Date Ivette Grimes MD [address] [facility] [place] [address] PCP - General Family Practice 11/21/13 Jagdish Carballo, [facility] [address] [facility] [place] [address] Pharmacist Pharmacy 05/19/20 Paunch Trimmer Relationship Specialty Start Date End Date Ivette Grimes MD [address] [place] [address] PCP - General Family Practice 11/21/13 Jagdish Carballo, [facility] [address] [facility] [place] [address] Pharmacist Pharmacy 05/19/20 Paunch Trimmer Relationship Specialty Start Date End Date Ivette Grimes MD [address] [place] [address] PCP - General Family Practice 11/21/13 Jagdish Carballo, [facility] [address] [facility] [place] [address] Pharmacist Pharmacy 05/19/20 Paunch Trimmer Relationship Specialty Start Date End Date Ivette Grimes MD [address] [place] [address] PCP - General Family Practice 11/21/13 Jagdish Carballo, [facility] [address] [facility] [place] [address] Pharmacist Pharmacy 05/19/20 Paunch Trimmer Relationship Specialty Start Date End Date Ivette Grimes MD [address] [place] [address] PCP - General Family Practice 11/21/13 [facility] [address] [place] [address] Pharmacist Pharmacy 05/19/20 Paunch Trimmer Relationship Specialty Start Date End Date Ivette Grimes MD [address] [place] [address] PCP - General Family Practice 11/21/13 [facility] [address] [place] [address] Pharmacist Pharmacy 05/19/20 Paunch Trimmer Relationship Specialty Start Date End Date Ivette Grimes MD [address] [place] [address] PCP - General Family Medicine 11/21/13 [facility] [address] [place] [address] Pharmacist Pharmacy 05/19/20 Paunch Trimmer Relationship Specialty Start Date End Date Ivette Grimes MD [address] [place] [address] PCP - General Family Medicine 11/21/13 [facility] [address] [place] [address] Pharmacist Pharmacy 05/19/20 Paunch Trimmer Relationship Specialty Start Date End Date Ivette Grimes MD [address] [place] [address] PCP - General Family Medicine 11/21/13 [facility] [address] [place] [address] Pharmacist Pharmacy 05/19/20 Paunch Trimmer Relationship Specialty Start Date End Date Ivette Grimes MD [address] [place] [address] PCP - General Family Medicine 11/21/13 Jagdish Carballo, [facility] [address] [place] [address] Pharmacist Pharmacy 05/19/20 Paunch Trimmer Relationship Specialty Start Date End Date Ivette Grimes MD [address] [place] [address] PCP - General Family Medicine 11/21/13 Jagdish Carballo, [facility] [address] [facility] [place] [address] Pharmacist Pharmacy 05/19/20 Paunch Trimmer Relationship Specialty Start Date End Date Ivette Grimes MD [address] [place] [address] PCP - General Family Medicine 11/21/13 Jagdish Carballo, [facility] [address] [place] [address] Pharmacist Pharmacy 05/19/20 Paunch Trimmer Relationship Specialty Start Date End Date Ivette Grimes MD [address] [place] [address] PCP - General Family Medicine 11/21/13 Jagdish Carballo, [facility] [address] [facility] [place] [address] Pharmacist Pharmacy 05/19/20 Paunch Trimmer Relationship Specialty Start Date End Date Ivette Grimes MD [address] [place] [address] PCP - General Family Medicine 11/21/13 Jagdish Carballo, [facility] [address] [place] [address] Pharmacist Pharmacy 05/19/20 Paunch Trimmer Relationship Specialty Start Date End Date Ivette Grimes MD [address] [place] [address] PCP - General Family Medicine 11/21/13 Jagdish Carballo, [facility] [address] [place] [address] Pharmacist Pharmacy 05/19/20 Paunch Trimmer Relationship Specialty Start Date End Date Ivette Grimes MD [address] [place] [address] PCP - General Family Medicine 11/21/13 Jagdish Carballo, [facility] [address] [place] [address] Pharmacist Pharmacy 05/19/20 Paunch Trimmer Relationship Specialty Start Date End Date Ivette Grimes MD [address] [place] [address] PCP - General Family Medicine 11/21/13 Jagdish Carballo, [facility] [address] [place] [address] Pharmacist Pharmacy 05/19/20 Paunch Trimmer Relationship Specialty Start Date End Date Ivette Grimes MD [address] [place] [address] PCP - General Family Medicine 11/21/13 Jagdish Carballo, [facility] [address] [facility] [place] [address] Pharmacist Pharmacy 05/19/20 Paunch Trimmer Relationship Specialty Start Date End Date Ivette Grimes MD [address] [place] [address] PCP - General Family Medicine 11/21/13 [facility] [address] [place] [address] Pharmacist Pharmacy 05/19/20 Paunch Trimmer Relationship Specialty Start Date End Date Ivette Grimes MD [address] [place] [address] PCP - General Family Medicine 11/21/13 [facility] [address] [place] [address] Pharmacist Pharmacy 05/19/20 Paunch Trimmer Relationship Specialty Start Date End Date Ivette Grimes MD [address] [place] [address] PCP - General Family Medicine 11/21/13 [facility] [address] [place] [address] Pharmacist Pharmacy 05/19/20 Paunch Trimmer Relationship Specialty Start Date End Date Ivette Grimes MD [address] [place] [address] PCP - General Family Medicine 11/21/13 [facility] [address] [place] [address] Pharmacist Pharmacy 05/19/20 Paunch Trimmer Relationship Specialty Start Date End Date Ivette Grimes MD [address] [place] [address] PCP - General Family Medicine 11/21/13 [facility] [address] [place] [address] Pharmacist Pharmacy 05/19/20 Jemal Orozco MD [address] [place] [address] Cardiology 10/31/22 Paunch Trimmer Relationship Specialty Start Date End Date Ivette Grimes MD [address] [place] [address] PCP - General Family Medicine 11/21/13 [facility] [address] [place] [address] Pharmacist Pharmacy 05/19/20 Jemal Orozco MD [address] [place] [address] Cardiology 10/31/22 Paunch Trimmer Relationship Specialty Start Date End Date Ivette Grimes MD [address] [place] [address] PCP - General Family Medicine 11/21/13 [facility] [address] [place] [address] Pharmacist Pharmacy 05/19/20 Jemal Orozco MD [address] [place] [address] Cardiology 10/31/22 Paunch Trimmer Relationship Specialty Start Date End Date Ivette Grimes MD [address] [place] [address] PCP - General Family Medicine 11/21/13 [facility] [address] [place] [address] Pharmacist Pharmacy 05/19/20 Jemal Orozco MD [address] [place], [place] [id number] Cardiology 10/31/22 Team Status: Active Member Role [...] Dr. Tod Callejas MD Emergency Provider Active Paunch Trimmer Relationship Specialty Start Date End Date Ivette Grimes MD [address] [place], [place] [address] PCP - General Family Medicine 11/21/13 Jagdish Carballo RPh [address] [place], [place] [address] Pharmacist Pharmacy 05/19/20 Jemal Orozco MD [address] [place] [address] Cardiology 10/31/22 Paunch Trimmer Relationship Specialty Start Date End Date Ivette Grimes MD [address] [place] [address] PCP - General Family Medicine 11/21/13 [facility] [address] [place] [address] Pharmacist Pharmacy 05/19/20 Jemal Orozco MD [address] [place], [place] [id number] Cardiology 10/31/22 Paunch Trimmer Relationship Specialty Start Date End Date Ivette Grimes MD [address] [place] [address] PCP - General Family Medicine 11/21/13 [facility] [address] [place] [address] Pharmacist Pharmacy 05/19/20 Jemal Orozco MD [address] [place] [address] Cardiology 10/31/22 Paunch Trimmer Relationship Specialty Start Date End Date Ivette Grimes MD [address] [place] [address] PCP - General Family Medicine 11/21/13 [facility] [address] [place] [address] Pharmacist Pharmacy 05/19/20 Jemal Orozco MD [address] [place] [address] Cardiology 10/31/22 Paunch Trimmer Relationship Specialty Start Date End Date Ivette Grimes MD [address] [place] [address] PCP - General Family Medicine 11/21/13 [facility] [address] [place] [address] Pharmacist Pharmacy 05/19/20 Jemal Orozco MD [address] [place] [address] Cardiology 10/31/22 Paunch Trimmer Relationship Specialty Start Date End Date Ivette Grimes MD [address] [place] [address] PCP - General Family Medicine 11/21/13 [facility] [address] [place] [address] Pharmacist Pharmacy 05/19/20 Jemal Orozco MD [address] [place] [address] Cardiology 10/31/22 Paunch Trimmer Relationship Specialty Start Date End Date Ivette Grimes MD [address] [place] [address] PCP - General Family Medicine 11/21/13 [facility] [address] [place] [address] Pharmacist Pharmacy 05/19/20 Jemal Orozco MD [address] [place] [address] Cardiology 10/31/22 Paunch Trimmer Relationship Specialty Start Date End Date Ivette Grimes MD [address] [place] [address] PCP - General Family Medicine 11/21/13 [facility] [address] [place] [address] Pharmacist Pharmacy 05/19/20 Jemal Orozco MD [address] [place] [address] Cardiology 10/31/22 Paunch Trimmer Relationship Specialty Start Date End Date Ivette Grimes MD [address] [place] [address] PCP - General Family Medicine 11/21/13 [facility] [address] [place] [address] Pharmacist Pharmacy 05/19/20 Jemal Orozco MD [address] [place] [address] Cardiology 10/31/22 Paunch Trimmer Relationship Specialty Start Date End Date Ivette Grimes MD [address] [place] [address] PCP - General Family Medicine 11/21/13 [facility] [address] [place] [address] Pharmacist Pharmacy 05/19/20 Jemal Orozco MD [address] [place] [address] Cardiology 10/31/22 Paunch Trimmer Relationship Specialty Start Date End Date Ivette Grimes MD [address] [place] [address] PCP - General Family Medicine 11/21/13 [facility] [address] [place] [address] Pharmacist Pharmacy 05/19/20 Jemal Orozco MD [address] [place] [address] Cardiology 10/31/22 Team Status: Inactive Member Role Status Dates Dr. Ivette Grimes MD Primary Care Provider, Referring Provider Active Dr. Vin Montes MD Attending Provider Active Team Status: Inactive Member Role Status Dates Dr. Ivette Grimes MD Primary Care Provider, Referring Provider Active Jesenia Mercado MACHINE JOINT CUTTER, MACHINE JOINT CUTTER-C Attending Provider Active Team Status: Inactive Member Role Status Dates Dr. Ivette Grimes MD Primary Care Provider Active Dr. Woody Shabazz DO Attending Provider, Emergency Kentrell go Active Team Status: Inactive Member Role Status Dates Dr. Ivette Grimes MD Primary Care Provider Active Dr. Tod Callejas MD Attending Provider, Emergency Provider Active Team Status: Inactive Member Role Status Dates Dr. Ivette Grimes MD Primary Care Provider Active Dr. Sam Pearl MD Attending Provider, Emergency Provider Active Paunch Trimmer Relationship Specialty Start Date End Date Ivette Grimes MD [address] [place] [address] PCP - General Family Medicine 11/21/13 [facility] [address] [place] [address] Pharmacist Pharmacy 05/19/20 Jemal Orozco MD [address] [place] [address] Cardiology 10/31/22 Paunch Trimmer Relationship Specialty Start Date End Date Ivette Grimes MD [address] [place] [address] PCP - General Family Medicine 11/21/13 [facility] [address] [place] [address] Pharmacist Pharmacy 05/19/20 Jemal Orozco MD [address] [place] [address] Cardiology 10/31/22 Paunch Trimmer Relationship Specialty Start Date End Date Ivette Grimes MD [address] [place] [address] PCP - General Family Medicine 11/21/13 [facility] [address] [place] [address] Pharmacist Pharmacy 05/19/20 Jemal Orozco MD [address] [place] [address] Cardiology 10/31/22 Paunch Trimmer Relationship Specialty Start Date End Date Ivette Grimes MD [address] [place] [address] PCP - General Family Medicine 11/21/13 [facility] [address] [place] [address] Pharmacist Pharmacy 05/19/20 Jemal Orozco MD [address] [place] [address] Cardiology 10/31/22 Team Status: Active Member Role Status Dates Dr. Ivette Grimes MD Primary Care Provider Active Adelina Mason MACHINE JOINT CUTTER, MACHINE JOINT CUTTER-C Attending Provider, Willian alvarez Provider Active Paunch Trimmer Relationship Specialty Start Date End Date Ivette Grimes MD [address] [place] [address] PCP - General Family Medicine 11/21/13 [facility] [address] [place] [address] Pharmacist Pharmacy 05/19/20 Jemal Orozco MD [address] [place] [address] Cardiology 10/31/22 Paunch Trimmer Relationship Specialty Start Date End Date Ivette Grimes MD [address] [place] [address] PCP - General Family Medicine 11/21/13 [facility] [address] [place] [address] Pharmacist Pharmacy 05/19/20 Jemal Orozco MD [address] [place] [address] Cardiology 10/31/22 Paunch Trimmer Relationship Specialty Start Date End Date Ivette Grimes MD [address] [place] [address] PCP - General Family Medicine 11/21/13 [facility] [address] [place] [address] Pharmacist Pharmacy 05/19/20 Jemal Orozco MD [address] [place] [address] Cardiology 10/31/22 Paunch Trimmer Relationship Specialty Start Date End Date Ivette Grimes MD [address] [place] [address] PCP - General Family Medicine 11/21/13 [facility] [address] [place] [address] Pharmacist Pharmacy 05/19/20 Jemal Orozco MD [address] [place] [address] Cardiology 10/31/22 Paunch Trimmer Relationship Specialty Start Date End Date Ivette Grimes MD [address] [place] [address] PCP - General Family Medicine 11/21/13 [facility] [address] [place] [address] Pharmacist Pharmacy 05/19/20 Jemal Orozco MD [address] [place] [address] Cardiology 10/31/22 Paunch Trimmer Relationship Specialty Start Date End Date Ivette Grimes MD [address] [place] [address] PCP - General Family Medicine 11/21/13 [facility] [address] [place] [address] Pharmacist Pharmacy 05/19/20 Jemal Orozco MD [address] [place] [address] Cardiology 10/31/22 Team Status: Inactive Member Role Status Dates Dr. Ivette Grimes MD Primary Care Provider Active TETO RIDER Attending Provider, Referring Pro vider Active Team Status: Inactive Member Role Status Dates Dr. Ivette Grimes MD Primary Care Provider Active Dr. Sam Pearl MD Emergency Provider Active Paunch Trimmer Relationship Specialty Start Date End Date Ivette Grimes MD [address] [place] [address] PCP - General Family Medicine 11/21/13 [facility] [address] [place] [address] Pharmacist Pharmacy 05/19/20 Jemal Orozco MD [address] [place] [address] Cardiology 10/31/22 Paunch Trimmer Relationship Specialty Start Date End Date Ivette Grimes MD [address] [place] [address] PCP - General Family Medicine 11/21/13 [facility] [address] [place] [address] Pharmacist Pharmacy 05/19/20 Jemal Orozco MD [address] [place] [address] Cardiology 10/31/22 Paunch Trimmer Relationship Specialty Start Date End Date Ivette Grimes MD [address] [place] [address] PCP - General Family Medicine 11/21/13 [facility] [address] [place] [address] Pharmacist Pharmacy 05/19/20 Jeaml Orozco MD [address] [place] [address] Cardiology 10/31/22 Paunch Trimmer Relationship Specialty Start Date End Date Ivette Grimes MD [address] [place] [address] PCP - General Family Medicine 11/21/13 [facility] [address] [place] [address] Pharmacist Pharmacy 05/19/20 Jemal Orozco MD [address] [place] [address] Cardiology 10/31/22 Paunch Trimmer Relationship Specialty Start Date End Date Ivette Grimes MD [address] [place] [address] PCP - General Family Medicine 11/21/13 Jagdish Carballo, [facility] [address] [facility] [place] [address] Pharmacist Pharmacy 05/19/20 Jemal Orozco MD [address] [place], [place] [address] Cardiology 10/31/22 Paunch Trimmer Relationship Specialty Start Date End Date Ivette Grimes MD [address] [place] [address] PCP - General Family Medicine 11/21/13 [facility] [address] [place] [address] Pharmacist Pharmacy 05/19/20 Jemal Orozco MD [address] [place], [place] [address] Cardiology 10/31/22 Paunch Trimmer Relationship Specialty Start Date End Date Ivette Grimes MD [address] [place] [address] PCP - General Family Medicine 11/21/13 [facility] [address] [place] [address] Pharmacist Pharmacy 05/19/20 Jemal Orozco MD [address] [place], [place] 6153995 Cardiology 10/31/22 Team Status: Active Member Role Status Dates Dr. Ivette Grimes MD Family Provider Active Team Status: Inactive Member Role Status Dates Dr. Bibiana Rehman DC Attending Provider Active Team Status: Inactive Member Role Status Dates Dr. Ivette Grimes MD Primary Care Provider Active Adelina Mason MACHINE JOINT CUTTER, MACHINE JOINT CUTTER-C Attending Provider, Referrin g Provider Active Team [...] MD Admit Provider, Attending Prov ider Active Paunch Trimmer Relationship Specialty Start Date End Date Ivette Grimes MD [address] [place] [address] PCP - General Family Medicine 11/21/13 [facility] [address] [place] [address] Pharmacist Pharmacy 05/19/20 Jemal Orozco MD [address] [place] [address]127[address] Cardiology 10/31/22 Paunch Trimmer Relationship Specialty Start Date End Date Ivette Grimes MD [address] [place] [address] PCP - General Family Medicine 11/21/13 [facility] [address] [place] [address] Pharmacist Pharmacy 05/19/20 Jemal Orozco MD [address] [place], [place] [address]708[address] Cardiology 10/31/22 Paunch Trimmer Relationship Specialty Start Date End Date Ivette Grimes MD [address] [place] [address] PCP - General Family Medicine 11/21/13 [facility] [address] [place] [address] Pharmacist Pharmacy 05/19/20 Jemal Orozco MD [address] [place], [place] 9470[address] Cardiology 10/31/22 Paunch Trimmer Relationship Specialty Start Date End Date Ivette Grimes MD [address] [place], [place] 046941 PCP - General Family Medicine 11/21/13 [facility] [address] [place], [place] 471811 Pharmacist Pharmacy 05/19/20 Jemal Orozco MD [address] [place] [address] Cardiology 10/31/22 Team Status: Inactive Member Role [...] MD Admit Provider, Attending Prov ider Active Paunch Trimmer Relationship Specialty Start Date End Date Ivette Grimes MD [address] [place] [address] PCP - General Family Medicine 11/21/13 [facility] [address] [place] [address] Pharmacist Pharmacy 05/19/20 Jemal Orozco MD [address] [place] [address] Cardiology 10/31/22 Paunch Trimmer Relationship Specialty Start Date End Date Ivette Grimes MD [address] [place] [address] PCP - General Family Medicine 11/21/13 [facility] [address] [place] [address] Pharmacist Pharmacy 05/19/20 Jemal Orozco MD [address] [place], [place] 4822395 Cardiology 10/31/22 Paunch Trimmer Relationship Specialty Start Date End Date Ivette Grimes MD [address] [place] [address] PCP - General Family Medicine 11/21/13 [facility] [address] [place] [address] Pharmacist Pharmacy 05/19/20 Jemal Orozco MD [address] [place], [place] [address]38[address] Cardiology 10/31/22 Team Status: Inactive Member Role Status Dates Dr. Ivette Grimes MD Primary Care Provider Active Dr. Luan Zepeda DO Emergency Provider Active Paunch Trimmer Relationship Specialty Start Date End Date Ivette Grimes MD [address] [place] [address] PCP - General Family Medicine 11/21/13 [facility] [address] [place] [address] Pharmacist Pharmacy 05/19/20 Jemal Orozco MD [address] [place], [place] [address]486[address] Cardiology 10/31/22 Paunch Trimmer Relationship Specialty Start Date End Date Ivette Grimes MD [address] [place] [address] PCP - General Family Medicine 11/21/13 [facility] [address] [place] [address] Pharmacist Pharmacy 05/19/20 Jeaml Orozco MD [address] [place], [place] [address]248[address] Cardiology 10/31/22 Paunch Trimmer Relationship Specialty Start Date End Date Ivette Grimes MD [address] [place] [address] PCP - General Family Medicine 11/21/13 [facility] [address] [place] [address] Pharmacist Pharmacy 05/19/20 Jemal Orozco MD [address] [place], [place] 5155395 Cardiology 10/31/22 Team Status: Inactive Member Role Status Dates Dr. Ivette Grimes MD Primary Care Provider Active Dr. Luan Zepeda DO Attending Provider, Roxane go Active Paunch Trimmer Relationship Specialty Start Date End Date Ivette Grimes MD [address] [place] [address] PCP - General Family Medicine 11/21/13 Jemal Orozco MD [address] [place] [address] Cardiology 10/31/22 Paunch Trimmer Relationship Specialty Start Date End Date Ivette Grimes MD [address] [place] [address] PCP - General Family Medicine 11/21/13 Jemal Orozco MD [address] [place] [address] Cardiology 10/31/22 Paunch Trimmer Relationship Specialty Start Date End Date Ivette Grimes MD [address] [place], [place] 137251 PCP - General Family Medicine 11/21/13 Jemal Orozco MD [address] [place] [address] Cardiology 10/31/22 Paunch Trimmer Relationship Specialty Start Date End Date Ivette Grimes MD [address] [place] [address] PCP - General Family Medicine 11/21/13 Jemal Orozco MD [address] [place] [address] Cardiology 10/31/22 Paunch Trimmer Relationship Specialty Start Date End Date Ivette Grimes MD [address] [place], [place] 147581 PCP - General Family Medicine 11/21/13 Jemal Orozco MD [address] [place], [place] 4249295 Cardiology 10/31/22 Paunch Trimmer Relationship Specialty Start Date End Date Ivette Grimes MD [address] [place], [place] 169761 PCP - General Family Medicine 11/21/13 Jemal Orozco MD [address] [place], [place] 49526[address] Cardiology 10/31/22 Paunch Trimmer Relationship Specialty Start Date End Date Ivette Grimes MD [address] [place], [place] 461361 PCP - General Family Medicine 11/21/13 Jemal Orozco MD [address] [place], [place] 1833195 Cardiology 10/31/22 Paunch Trimmer Relationship Specialty Start Date End Date Ivette Grimes MD [address] [place], [place] 895921 PCP - General Family Medicine 11/21/13 Jemal Orozco MD [address] [place], [place] 29364[address] Cardiology 10/31/22 Paunch Trimmer Relationship Specialty Start Date End Date Ivette Grimes MD [address] [place] [address] PCP - General Family Medicine 11/21/13 Jemal Orozco MD [address] [place], [place] 8268[address] Cardiology 10/31/22 Paunch Trimmer Relationship Specialty Start Date End Date Ivette Grimes MD [address] [place] [address] PCP - General Family Medicine 11/21/13 Jemal Orozco MD [address] [place], [place] 9850095 Cardiology 10/31/22 Paunch Trimmer Relationship Specialty Start Date End Date Ivette Grimes MD [address] [place] [address] PCP - General Family Medicine 11/21/13 Jemal Orozco MD [address] [place], [place] 3608995 Cardiology 10/31/22 Paunch Trimmer Relationship Specialty Start Date End Date Ivette Grimes MD [address] [place], [place] 205041 PCP - General Family Medicine 11/21/13 Jemal Orozco MD [address] [place], [place] 6203[address] Cardiology 10/31/22 Paunch Trimmer Relationship Specialty Start Date End Date Ivette Grimes MD [address] [place], [place] 287761 PCP - General Family Medicine 11/21/13 Jemal Orozco MD [address] [place] [address] Cardiology 10/31/22 Paunch Trimmer Relationship Specialty Start Date End Date Ivette Grimes MD [address] [place], [place] 417441 PCP - General Family Medicine 11/21/13 Jemal Orozco MD [address] [place], [place] 8572195 Cardiology 10/31/22 Paunch Trimmer Relationship Specialty Start Date End Date Ivette Grimes MD [address] [place], [place] [address]1301 PCP - General Family Medicine 11/21/13 Jagdish Carballo [facility] [address] [place], [place] 643821 Pharmacist Pharmacy 05/19/20 12/25/23 Jemal Orozco MD [address] [place], [place] 6412595 Cardiology 10/31/22 Paunch Trimmer Relationship Specialty Start Date End Date Ivette Grimes MD [address] [place], [place] 461741 PCP - General Family Medicine 11/21/13 Jemal Orozco MD [address] [place], [place] 0079695 Cardiology 10/31/22 Paunch Trimmer Relationship Specialty Start Date End Date Ivette Grimes MD [address] [place] [address] PCP - General Family Medicine 11/21/13 Jemal Orozco MD [address] [place], [place] 3481695 Cardiology 10/31/22 Paunch Trimmer Relationship Specialty Start Date End Date Ivette Grimes MD [address] [place] [address] PCP - General Family Medicine 11/21/13 Jemal Orozco MD [address] [place], [place] 3493595 Cardiology 10/31/22 Paunch Trimmer Relationship Specialty Start Date End Date Ivette Grimes MD [address] [place], [place] 613801 PCP - General Family Medicine 11/21/13 Jemal Orozco MD [address] [place] [address] Cardiology 10/31/22 Paunch Trimmer Relationship Specialty Start Date End Date Ivette Grimes MD [address] [place], [place] 108831 PCP - General Family Medicine 11/21/13 Jemal Orozco MD [address] [place], [place] 279999[address] Cardiology 10/31/22 Cindy Edouard, THOM.STEP DOWN SPECIALIST [address] [place] [address] Information Technology Technician Family Medicine 10/12/24 Lubna De La Garza AIR CONDITIONING UNIT ASSEMBLER.STEP DOWN SPECIALIST [address] [place] [address] Information Technology Technician Family Medicine 10/12/24 Paunch Trimmer Relationship Specialty Start Date End Date Ivette Grimes MD [address] [place], [place] 234111 PCP - General Family Medicine 11/21/13 Jemal Orozco MD [address] [place], [place] 8272995 Cardiology 10/31/22 Cindy Edouard APRN.STEP DOWN SPECIALIST [address] [place] [address] Information Technology Technician Family Medicine 10/12/24 Lubna De La Garza AIR CONDITIONING UNIT ASSEMBLER.STEP DOWN SPECIALIST [address] [place] [address] Information Technology Technician Family Medicine 10/12/24 Paunch Trimmer Relationship Specialty Start Date End Date Ivette Grimes MD [address] [place], [place] 808631 PCP - General Family Medicine 11/21/13 Jemal Orozco MD [address] [place], [place] [address] Cardiology 10/31/22 Cindy Edouard, AIR CONDITIONING UNIT ASSEMBLER.STEP DOWN SPECIALIST [address] [place] [address] Information Technology Technician Family Medicine 10/12/24 Lubna De La Garza AIR CONDITIONING UNIT ASSEMBLER.STEP DOWN SPECIALIST [address] [place] [address] Information Technology Technician Family Medicine 10/12/24 Paunch Trimmer Relationship Specialty Start Date End Date Ivette Grimes MD [address] [place] [address] PCP - General Family Medicine 11/21/13 Jemal Orozco MD [address] [place], [place] 0731495 Cardiology 10/31/22 Cindy Edourad APRN.STEP DOWN SPECIALIST [address] [place] [address] [facility] 10/12/24 Lubna De La Garza AIR CONDITIONING UNIT ASSEMBLER.STEP DOWN SPECIALIST [address] [place] [address] [facility] 10/12/24 Paunch Trimmer Relationship Specialty Start Date End Date Ivette Grimes MD [address] [place] [address] PCP - General Family Medicine 11/21/13 Jemal Orozco MD [address] [place], [place] 17755[address] Cardiology 10/31/22 Cindy Edouard AIR CONDITIONING UNIT ASSEMBLER.STEP DOWN SPECIALIST [address] [place] [address] [facility] 10/12/24 Lubna De La Garza AIR CONDITIONING UNIT ASSEMBLER.STEP DOWN SPECIALIST [address] [place] [address] [facility] 10/12/24 Paunch Trimmer Relationship Specialty Start Date End Date Ivette Grimes MD [address] [place] [address] PCP - General Family Medicine 11/21/13 Jemal Orozco MD [address] [place], [place] [address]58[address] Cardiology 10/31/22 Cindy Edouard APRN.STEP DOWN SPECIALIST [address] [facility] [place] [address] Information Technology [facility] 10/12/24 Lubna De La Garza APRN.STEP DOWN SPECIALIST [address] [place] [address] Information Technology [facility] 10/12/24 Paunch Trimmer Relationship Specialty Start Date End Date Ivette Grimes MD [address] [place] [address] PCP - General Family Medicine 11/21/13 Jemal Orozco MD [address] [place] [address] Cardiology 10/31/22 Cindy Edouard AIR CONDITIONING UNIT ASSEMBLER.STEP DOWN SPECIALIST [address] [place] [address] Information Technology [facility] 10/12/24 Lubna De La Garza APRN.STEP DOWN SPECIALIST [address] [place] [address] [facility] 10/12/24 Paunch Trimmer Relationship Specialty Start Date End Date Ivette Grimes MD [address] [place] [address] PCP - General Family Medicine 11/21/13 Jemal Orozco MD [address] [place] [address] Cardiology 10/31/22 Cindy Edouard APRN.STEP DOWN SPECIALIST [address] [place] [address] [facility] Technology [facility] 10/12/24 Lubna De La Garza APRN.STEP DOWN SPECIALIST [address] [place] [address] [facility] 10/12/24 Paunch Trimmer Relationship Specialty Start Date End Date Ivette Grimes MD [address] [place] [address] PCP - General Family Medicine 11/21/13 Jemal Orozco MD [address] [place] [address] Cardiology 10/31/22 Cindy Edouard APRN.STEP DOWN SPECIALIST [address] [place] [address] [facility] 10/12/24 Lubna De La Garza APRN.STEP DOWN SPECIALIST [address] [place] [address] [facility] 10/12/24 Paunch Trimmer Relationship Specialty Start Date End Date Ivette Grimes MD [address] [place] [address] PCP - General Family Medicine 11/21/13 Jemal Orozco MD [address] [place], [place] 69338[address] Cardiology 10/31/22 Cindy Edouard APRN.STEP DOWN SPECIALIST [address] [place] [address] [facility] 10/12/24 Lubna De La Garza APRN.STEP DOWN SPECIALIST [address] [place] [address] Information Technology Technician Family Medicine 10/12/24 Paunch Trimmer Relationship Specialty Start Date End Date Ivette Grimes MD [address] [place] [address] PCP - General Family Medicine 11/21/13 Jemal Orozco MD [address] [place] [address] Cardiology 10/31/22 Cindy Edouard APRN.STEP DOWN SPECIALIST [address] [place] [address] Information Technology Technician Family Medicine 10/12/24 Lubna De La Garza AIR CONDITIONING UNIT ASSEMBLER.STEP DOWN SPECIALIST [address] [place] [address] Information Technology [facility] 10/12/24 Paunch Trimmer Relationship Specialty Start Date End Date Ivette Grimes MD [address] [place] [address] PCP - General Family Medicine 11/21/13 Jemal Orozco MD [address] [place], [place] 0131795 Cardiology 10/31/22 Cindy Edoaurd AIR CONDITIONING UNIT ASSEMBLER.STEP DOWN SPECIALIST [address] [place] [address] Information Technology Technician Family Medicine 10/12/24 Lubna De La Garza AIR CONDITIONING UNIT ASSEMBLER.STEP DOWN SPECIALIST [address] [place] [address] Information Technology Technician Family Medicine 10/12/24 Team Status: Active Member Role Status [...] January 28, 2025 End: January 28, 2025 Paunch Trimmer Relationship Specialty Start Date End Date Ivette Grimes MD [address] [place] [address] PCP - General Family Medicine 11/21/13 Jemal Orozco MD [address] [place], [place] [address]45[address] Cardiology 10/31/22 Cindy Edouard, AIR CONDITIONING UNIT ASSEMBLER.STEP DOWN SPECIALIST [address] [place], [place] 9230[address] [facility] 10/12/24 Lubna De La Garza AIR CONDITIONING UNIT ASSEMBLER.STEP DOWN SPECIALIST [address] [place] [address] [facility] 10/12/24 Paunch Trimmer Relationship Specialty Start Date End Date Ivette Grimes MD [address] [place] [address] PCP - General Family Medicine 11/21/13 Jemal Orozco MD [address] [place], [place] 2904[address] Cardiology 10/31/22 Cindy Edouard, AIR CONDITIONING UNIT ASSEMBLER.STEP DOWN SPECIALIST [address] [place] [address] [facility] 10/12/24 Lubna De La Garza AIR CONDITIONING UNIT ASSEMBLER.STEP DOWN SPECIALIST [address] [place] [address] [facility] 10/12/24 Team Status: Inactive Member Role [...] March 22, 2025 End: March 22, 2025 Paunch Trimmer Relationship Specialty Start Date End Date Ivette Grimes MD [address] [place] [address] PCP - General Family Medicine 11/21/13 Jemal Orozco MD [address] [place] [address] Cardiology 10/31/22 Cindy Edouard, THOM.STEP DOWN SPECIALIST [address] [place], [place] [address]341 Information Technology [facility]icianSt[facility] 10/12/24 Lubna De La Garza APRN.STEP DOWN SPECIALIST [address] [place], [place] [address] [facility] 10/12/24 Team Status: Inactive Member Role Status Dates Dr. Ivette Grimes MD Primary Care Provider Active Start: April 05, 2025 End: April 05, 2025 Dr. Ivette Grimes MD Referring Provider Active Start: April 05, 2025 End: April 05, 2025 Dr. Bibiana Rehman DC Attending Provider Active S tart: April 05, 2025 End: April 05, 2025 Paunch Trimmer Relationship Specialty Start Date End Date Ivette Grimes MD [address] [place], [place] 127581 PCP - General Family Medicine 11/21/13 Jemal Orozco MD [address] [place], [place] [address]68[address] Cardiology 10/31/22 Cindy Edouard, AIR CONDITIONING UNIT ASSEMBLER.STEP DOWN SPECIALIST [address] [place], [place] [address]8901 [facility] 10/12/24 Lubna De La Garza APRN.STEP DOWN SPECIALIST [address] [place], [place] [id number] [facility] 10/12/24 Team Status: Active Member Role [...] June 01, 2025 End: June 01, 2025 Paunch Trimmer Relationship Specialty Start Date End Date Ivette Grimes MD [address] [place], [place] 070181 PCP - General Family Medicine 11/21/13 Jemal Orozco MD [address] [place] [address] Cardiology 10/31/22 Cindy Edouard, AIR CONDITIONING UNIT ASSEMBLER.STEP DOWN SPECIALIST [address] [place], [place] [id number] [facility] 10/12/24 Lubna De La Garza, AIR CONDITIONING UNIT ASSEMBLER.STEP DOWN SPECIALIST [address] [place], [place] [id number] [facility] 10/12/24 Team Status: Inactive Member Role/Relationship Status [...] 2025 End: June 01, 2025 Dr. Bibiana Remhan DC Attending Provider Active S tart: June [...] June 09, 2025 End: June 09, 2025 Paunch Trimmer Relationship Specialty Start Date End Date Ivette Grimes MD [address] [place], [place] [id number] PCP - General Family Medicine 11/21/13 eJmal Orozco MD [address] [place], [place] [id number] Cardiology 10/31/22 Cindy Edouard APRN.STEP DOWN SPECIALIST [address] [place], [place] [id number] Information Technology Technician Family [facility] 10/12/24 Lubna De La Garza AIR CONDITIONING UNIT ASSEMBLER.STEP DOWN SPECIALIST [address] [place], [place] [address] Information Technology Technician [facility] 10/12/24 Team Status: Inactive Member Role/Relationship Status Dates Dr. Ivette Grimes MD Primary Care Provider Active Start: June 23, 2025 End: June 23, 2025 Brett Quiroga MD Attending Provider Active St art: June 23, 2025 End: June 23, 2025 Brett Quiroga MD Referring Provider Active St art: June 23, 2025 End: June 23, 2025 Team Status: Active Member Role/Relationship Status Dates Dr. Ivette Grimes MD Primary Care Provider Active Start: June 23, 2025 Brett Quiroga MD Attending Provider Active St art: June 23, 2025 Brett Quiroga MD Referring Provider Active St art: June 23, 2025 Brett Quiroga MD Other Provider Active Start: June 23, 2025 Team Status: Inactive Member Role/Relationship Status Dates Dr. Ivette Grimes MD Primary Care Provider Active Start: June 25, 2025 End: June 25, 2025 Dr. Ivette Grimes MD Referring Provider Active Start: June 25, 2025 End: June 25, 2025 Brett Quiroga MD Attending Provider Active St art: June 25, 2025 End: June 25, 2025 INFORMATION SOURCE (unrecogn ized section and content) DATE CREATED AUTHOR 01/25/2023 [facility] DATE CREATED AUTHOR AUTHOR'S ORGANIZ ATION 06/20/2025 [facility] DATE CREATED AUTHOR AUTHOR'S ORGANIZ ATION 07/01/2025 [facility] Inactive Administered Medications - up to 3 [...] BE BASED ON THE PRIMARY CLINICAL RECORDS. [employer] provides no warranty or guarantee of the accuracy or completeness of information in this document.
--- NOTE | 2025-07-05 18:27 | RAD_ITS ---
PROCEDURE: CHEST PA AND LATERAL 07/05/2025 REASON FOR EXAM: SHORTNESS OF BREATH TECHNIQUE: Procedure Code: RADCXR Modality: DX Procedure: CHEST PA AND LATERAL COMPARISON: 12/11/2024 FINDINGS: Lungs/Pleura: No appreciable focal consolidation, pneumothorax or pleural effusion. Heart/Mediastinum: Enlarged cardiac silhouette, and central vascular congestion. Bones/Soft tissues: Mild degenerative changes of the thoracic spine. RAD/Chest PA and Lateral IMPRESSION: Cardiomegaly with mild vascular congestion. No airspace consolidation or sizable pleural effusion. Reading Location: [id number]
[2025-07-05 19:08] LABS: AST(SGOT) 19 U/L (<=31); Alanine Aminotransfer ALT/SGPT 26 U/L (<=34); Albumin, Serum 3.3 g/dL (3.5-5.0); Alkaline Phosphatase 183 U/L (35-104); Anion Gap 15 (5-15); BUN 41 mg/dL (4-19); BUN/Creat Ratio 20.7 RATIO (10-20); Calcium,Total 8.3 mg/dL (7.6-11.0); Carbon Dioxide 15.0 mmol/L (21.0-32.0); Chloride 98 mmol/L (98-108); Estimated Creatinine Clearance 51.75 ml/min (50-250); Globulin 3.7 g/dL (2.2-4.2); Glucose 533 mg/dL (70-99); Potassium 3.8 mmol/L (3.3-5.1)
[2025-07-05] MEDS: Ceftriaxone 2 GM in 0.9% Normal Saline (50mL MB+) 50 ML IV (19:20)
[2025-07-05] MEDS: Insulin Lispro 100 UNIT in 0.9% Normal Saline (100mL Bag) 99 ML 8.7 UNIT CONT INF (20:34)
[2025-07-05 20:36] LABS: BETA-HYDROXYBUTYRATE 0.1 mmol/L (0.0-0.3); Magnesium 2.2 mg/dL (1.5-2.2)
--- NOTE | 2025-07-05 20:43 | EX.ED.DYSGE1 ---
HPI History of Present Illness Chief Complaint: Shortness of Breath Detail of Chief Complaint: Altered mental status, thirst, elevated blood sugar, shortness of breath, l Informant: patient and family (Daughter states she has received text messages that do not make sense.) Onset/Context/Timing Onset: Days (Saturday) Context: Sudden Onset Timing: Continuous and Waxes and wanes Quality: Altered mental status, decreased urine output, dark urine, thirst Location: Multiple Current Severity: Moderate Maximum Severity: Severe Worsened by: Unknown certain Relieved by: Nothing Associated Symptoms Associated Symptoms: Chills with subjective fever Narrative Narrative: Patient is a 45-year-old woman. 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 She presents because she not been feeling well. Daughter states she is been sending unusual and weird text that do not make sense. Subjective fever with chills. Thirst dry mouth. Complains of shortness of breath. Denies dyspnea on exertion, orthopnea or PND. Denies chest discomfort of any type. Does endorse nausea without vomiting. Said some intermittent diarrhea. She has not been on antibiotic in the past month. She reports decreased urine output and dark-colored urine. She has some mild discomfort in the suprapubic area describes it as pressure. She denies back or flank pain. She denies skin lesions. She states her sugars normally run 11/24/1929. They have been greater than 400 the past 12 hours. Prior similar symptoms: No Recent Illness/Hospitalization: No PFSH PFS Medical History Impingement of left shoulder Diabetes Fatty liver Gastric reflux BiPAP (biphasic positive airway pressure) dependence Sleep apnea Non-smoker History of stress test History of echocardiogram Cardiology follow-up encounter Abnormal ECG Prolonged Q-T interval on ECG Microalbuminuria LETITIA (obstructive sleep apnea) Back pain 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 Nausea Left shoulder pain Pain of left scapula Left upper extremity numbness Left shoulder strain Obstructive Sleep Apnea-Hypopnea Syndrome Fatty liver Type 2 diabetes mellitus with microalbuminuria Type 2 diabetes mellitus without complication, with long-term current use of insulin History of stent into kidney Anxiety Acute cholecystitis Segmental and somatic dysfunction of cervical region Migraines Acute bronchitis Acute respiratory insufficiency Dyspnea History of obstructive sleep apnea Elevated triglycerides with high cholesterol Calculus of left kidney Nonalcoholic hepatosteatosis Hydroureter, left Hydronephrosis, left Acute kidney injury Pyelonephritis Nephrolithiasis Obesity Hypertension Type 2 diabetes mellitus Segmental and somatic dysfunction of lumbar region Vertigo Left upper quadrant abdominal pain Dysuria Urinary tract infection Segmental and somatic dysfunction of pelvic region Segmental and somatic dysfunction of thoracic region Lumbar facet arthropathy Lumbosacral spondylosis Radiculopathy of lumbosacral region Disc displacement, lumbar Degeneration of intervertebral disc of lumbosacral region Home Medications ?Medication ?Instructions ?Recorded ?Last Taken ?Type blood sugar diagnostic (Blood #10 ea 04/26/20 Unknown History Glucose Test strips) ipratropium bromide 21 mcg (0.03 2 spray intranasal BID PRN 08/23/20 08/03/23 History %) nasal spray allergies albuterol sulfate 90 mcg/actuation 2 puff inhalation Q4H PRN 08/10/22 08/03/23 History aerosol inhaler shortness of breath or wheezing fexofenadine 180 mg tablet 180 mg PO DAILY allergies 08/10/22 06/22/25 History (Allergy Relief (fexofenadine)) levonorgestrel 17.5 mcg/24 hr (up 1 device intrauterine ONCE 08/10/22 06/23/25 History to 5 yrs) 19.5mg intrauterine control device tizanidine 4 mg tablet 4 mg PO Q8H PRN Muscle Spasm 08/10/22 06/20/25 History omeprazole 20 mg capsule,delayed 20 mg PO DAILY PRN gerd 08/16/22 06/22/25 History release topiramate 100 mg tablet 100 mg PO BID seizures 08/16/22 06/23/25 History fluoxetine 20 mg capsule 20 mg PO QHS mental health 12/28/22 06/22/25 History gabapentin 300 mg capsule 300 mg PO QHS nerve pain 12/28/22 06/22/25 History lisinopril 10 mg tablet 10 mg PO DAILY blood pressure 12/28/22 06/22/25 History ondansetron HCl 4 mg tablet 4 mg PO Q8H PRN nausea 12/28/22 Unknown History rimegepant 75 mg disintegrating 75 mg PO DAILY PRN migraine 02/04/24 11/10/24 History tablet (Nurtec ODT) headache semaglutide 2 mg/dose (8 mg/3 mL) 2 mg subcut QWEEK 07/05/25 Unknown History subcutaneous pen injector (Ozempic) Allergy/AdvReac Type Severity Reaction Status Date / Time Corticosteroids Allergy Hives Verified 07/05/25 17:33 (Glucocorticoids) (steroids) lidocaine AdvReac Intermediate Hives Verified 07/05/25 17:33 Family History Father Diabetes Myocardial infarction Pancreatic cancer Mother Alcohol abuse Drug abuse Grandfather Diabetes Grandmother Lung cancer Grandmother Heart disease Triple bypass surgery Surgical History History of urethral stent (~2018) Hx laparoscopic cholecystectomy (~2005) H/O: (~2005) Social History household members: none Smoking Status: Never smoker alcohol intake: never substance use type: does not use caffeine: Yes Type: coffee what type of physical activity do you participate in: walking frequency: daily seatbelt use: always do you feel safe at home: Yes ROS ROS ED Constitutional Constitutional ED: Reports chills, fever(s) and subjective; Denies sweats Eyes Eyes: Denies blurry vision, change in vision or diplopia ENT ENT ED: Denies ear pain, rhinorrhea or sore throat Cardiovascular Cardiovascular: Denies chest pain, orthopnea, palpitations, paroxysmal nocturnal dyspnea or racing heartbeat Respiratory/Chest Respiratory/Chest: Reports dyspnea and dyspnea on exertion; Denies cough, orthopnea, paroxysmal nocturnal dyspnea or sputum Gastrointestinal Gastrointestinal: Reports diarrhea and nausea; Denies abdominal pain Genitourinary Genitourinary ED: Denies dysuria, hematuria or urinary frequency Musculoskeletal Musculoskeletal: Reports myalgias; Denies arthralgias, back pain or neck pain Integumentary Denies rash Neurologic Neurologic: Reports weakness; Denies headache(s) or paresthesias Endocrine Endocrinology: Denies cold intolerance or heat intolerance Hematologic/Lymphatic Hematologic/Lymphatic: Reports systems reviewed and no addt'l complaints, except as documented EXAM Physical Exam Const Vital Signs: 07/05/25 17:32 07/05/25 17:34 07/05/25 17:36 Temperature 98.6 F 98.6 F Temperature Source Oral Oral Pulse Rate 78 76 Respiratory Rate 18 21 H Respiratory Effort Normal Non-Labored Respiratory Depth Normal Respiratory Pattern Normal Blood Pressure 106/46 L 127/65 H Blood Pressure Mean 66 85 Pulse Ox 96 98 Oxygen Delivery Method Room Air Room Air Room Air 07/05/25 18:08 07/05/25 18:15 07/05/25 18:15 Temperature Temperature Source Pulse Rate 76 72 Respiratory Rate 20 H 24 H Respiratory Effort Respiratory Depth Respiratory Pattern Blood Pressure 118/61 118/61 Blood Pressure Mean 77 77 Pulse Ox 98 98 Oxygen Delivery Method 07/05/25 18:30 07/05/25 18:36 07/05/25 18:38 Temperature 99.7 F H Temperature Source Oral Pulse Rate 74 74 Respiratory Rate 24 H 24 H Respiratory Effort Respiratory Depth Respiratory Pattern Blood Pressure 83/61 L 114/55 L 114/55 L Blood Pressure Mean 67 74 71 Pulse Ox 97 96 98 Oxygen Delivery Method Room Air 07/05/25 18:45 07/05/25 19:00 07/05/25 19:00 Temperature 99.9 F H Temperature Source Oral Pulse Rate 72 76 71 Respiratory Rate 19 H 21 H 26 H Respiratory Effort Respiratory Depth Respiratory Pattern Blood Pressure 116/54 L 108/53 L 108/53 L Blood Pressure Mean 70 71 68 Pulse Ox 100 97 97 Oxygen Delivery Method Room Air 07/05/25 19:22 07/05/25 19:50 07/05/25 21:00 Temperature 99.9 F H 100 F H Temperature Source Oral Pulse Rate 71 73 72 Respiratory Rate 20 H 24 H 22 H Respiratory Effort Respiratory Depth Respiratory Pattern Blood Pressure 101/53 L 97/56 L 102/47 L Blood Pressure Mean 69 69 65 Pulse Ox 98 100 96 Oxygen Delivery Method Room Air Room Air 07/05/25 22:00 Temperature 97.9 F Temperature Source Oral Pulse Rate 77 Respiratory Rate 16 Respiratory Effort Respiratory Depth Respiratory Pattern Blood Pressure 95/77 Blood Pressure Mean 83 Pulse Ox 97 Oxygen Delivery Method Room Air Positive well nourished, well developed and obese Constitutional Narrative: Patient appears pale. She does not appear well. General Appearance ED: well developed Nutritional Appearance: obese HEENT Reports dry mucous membranes HEENT Narrative: Tongue is pierced. Ears are normal. Nares patent. Posterior pharynx is normal. Mouth ED: Yes dry mucous membranes Mouth: dry mucous membranes Eyes PERRL and EOMs intact bilaterally General Eye ED: Yes pale conjunctiva; Negative for scleral icterus Neck no lymphadenopathy, supple and no JVD Resp normal respiratory effort and clear to auscultation bilaterally Cardio regular rate, regular rhythm, S1 normal heart sound, S2 normal heart sound and no murmurs GI normal to inspection, nondistended, normoactive bowel sounds, non-distended and no masses; Negative for non-tender or hepatosplenomegaly Palpation: tender suprapubic Back/Spine no CVA tenderness Extremity normal to inspection General Extremety ED: Negative for edema or tenderness General Extremity: Negative for edema Neuro oriented x3, CN's II-XII intact bilaterally and no sensory deficits noted Neuro Narrative: Awake but not alert. Sensorium / Orientation: Negative for alert Psych Mood & Affect: depressed Skin Skin Narrative: Patient is flushed in the submental area and right and left cheek region. There is no evidence of cellulitis i.e. induration, warmth, fluctuance lymphangitis or lymphadenopathy. Sepsis Attestation Sepsis Alert: Yes Date exam was performed: 07/05/25 Time exam was performed: 20:00 Possible Source of Sepsis: Genitourinary Fluid Resuscitation Fluid resuscitation indicated?: Yes Fluid Resuscitation ordered: 30 ml/kg fluid bolus ordered MDM MDM MDM Narrative Medical decision making narrative: Patient with encephalopathy this could be due to metabolic or infectious. Will obtain appropriate blood work. Prior records reviewed and document in the HPI narrative. Lab Data Attestation: I reviewed the patient's lab results. Lab results narrative: White count is normal. Patient had a significant drop in her hemoglobin. She was question regarding black or maroon-colored stool she denies. She denies hematuria. Hemoglobin was 13 5 and hematocrit of 39.2 on June 05, 2025. [facility] metabolic panel is remarkable for glucose of 593 with a CO2 of 15 and anion gap of 15. Sodium is 128 suspect this is pseudohyponatremia due to her hyperglycemia. Her creatinine is doubled. This would indicate endorgan dysfunction. Urine is consistent with infection. Urine and blood cultures were obtained prior to starting patient on Rocephin. After reviewing vital signs and noted that she had a drop in her blood pressure at approximately 2000 and additional 3 L of normal saline was ordered. Labs: Laboratory Results - last 24 hr 07/05/25 07/05/25 07/05/25 17:40 17:48 18:02 WBC 6.9 RBC 2.94 L Hgb 9.5 L Hct 28.2 L MCV 95.9 MCH 32.3 H MCHC 33.7 RDW Std Deviation 48.8 H RDW Coeff of Itzel 13.8 Plt Count 136 L MPV 10.4 Immature Gran % (Auto) 0.900 Neut % (Auto) 77.6 H Lymph % (Auto) 14.4 L [place] % (Auto) 5.8 Eos % (Auto) 0.9 Baso % (Auto) 0.4 Absolute Neuts (auto) 5.3 Absolute Lymphs (auto) 0.99 Nucleated RBC % 0 Sodium 128 L Potassium 3.8 Chloride 98 Carbon Dioxide 15.0 L Anion Gap 15 BUN 41 H Creatinine 1.98 H Estim Creat Clear Calc 51.75 Est GFR (MDRD) Non-Af 32 L BUN/Creatinine Ratio 20.7 H Glucose 533 H* Lactic Acid 2.2 H* Calcium 8.3 Phosphorus 3.0 Magnesium 2.2 Total Bilirubin 0.57 AST 19 ALT 26 Alkaline Phosphatase 183 H Total Protein 7.1 Albumin 3.3 L Globulin 3.7 Albumin/Globulin Ratio 0.9 b-Hydroxybutyric mmol/L 0.1 Urine Color Straw Urine Clarity Sl. Cloudy Urine pH 6.0 Ur Specific [place] 1.010 Urine Protein 30 H Urine Glucose (UA) 1000 H Urine Ketones Negative Urine Occult Blood 150 H Urine Nitrite Negative Urine Bilirubin Negative Urine Urobilinogen Normal Ur Leukocyte Esterase 100 H Urine RBC 5-10 SEEN Urine WBC 10-25 SEEN Ur Squamous Epith Cells 5-10 SEEN Urine Bacteria 3+ Urine Mucus 0 SEEN POC Glucose 459 H* 07/05/25 07/05/25 07/05/25 20:26 20:45 21:35 WBC RBC Hgb Hct MCV MCH MCHC RDW Std Deviation RDW Coeff of Itzel Plt Count MPV Immature Gran % (Auto) Neut % (Auto) Lymph % (Auto) [place] % (Auto) Eos % (Auto) Baso % (Auto) Absolute Neuts (auto) Absolute Lymphs (auto) Nucleated RBC % Sodium 130 L Potassium 3.6 Chloride 101 Carbon Dioxide 17.3 L Anion Gap 11 BUN Creatinine Estim Creat Clear Calc Est GFR (MDRD) Non-Af BUN/Creatinine Ratio Glucose Lactic Acid Calcium Phosphorus Magnesium Total Bilirubin AST ALT Alkaline Phosphatase Total Protein Albumin Globulin Albumin/Globulin Ratio b-Hydroxybutyric mmol/L Urine Color Urine Clarity Urine pH Ur Specific [place] Urine Protein Urine Glucose (UA) Urine Ketones Urine Occult Blood Urine Nitrite Urine Bilirubin Urine Urobilinogen Ur Leukocyte Esterase Urine RBC Urine WBC Ur Squamous Epith Cells Urine Bacteria Urine Mucus POC Glucose 369 H 321 H Since the beta-hydroxybutyrate is normal patient is not in DKA. She has sepsis and the cause of her metabolic acidosis. She also has hyperglycemia. ABG Data ABG results: ABG 07/05/25 17:55 Specimen Type SHIRA Sample Site Not entered VBG pH 7.32 VBG pO2 77 H VBG HCO3 16 L VBG Total CO2 17 L VBG O2 Sat (Calc) 94 H VBG Base Excess -10 L POC Mix VBG pCO2 Pt Tmp 31.6 L O2 Delivery Device Not entered Radiography Chest X-Ray - ED: 1 View and Read by ED Physician (Normal cardiac silhouette. Heart is slightly enlarged. There is no infiltrate, pneumothorax or effusion. There is no acute abnormality of the osseous structures. There is independent reviewed interpreted by me) Diagnostic Testing: Clinical Impression(s) from Imaging Studies Chest X-Ray 07/05/25 18:27 IMPRESSION: Cardiomegaly with mild vascular congestion. No airspace consolidation or sizable pleural effusion. Reading Location: [facility] EKG Initial EKG: Attestation: I personally reviewed and interpreted this EKG as follows: Interpretation: Sinus Rhythm (Rate is 75. Voltage is low. LA interval is 138 ms. QS duration 94 ms per QT duration 384 ms. Myrtle is normal. There is nonseptic changes which is artifact.) Treatment and Re-Evaluation :: Beta hydroxybutyrate was also added. Started on insulin drip. Suspect patient is in DKA due to her sepsis. Critical Care Time Critical Care Time: Yes Critical care time (excluding procedures): 30-74 minutes (34), Including time spent: (History, physical, documentation, review of prior records, interpretation laboratories alts and images and initiation of treatment for DKA and sepsis.), Discussing w/Patient &/or Family/Evaluation Analyst, Discussing w/Consultants and Arranging Admission or Transfer Discharge Plan Dx/Rx/DC Orders Clinical Impression: Sepsis, LETITIA (obstructive sleep apnea), Complicated urinary tract infection, Acidosis, lactic, Acute kidney injury, Acute anemia, Acute hypotension, Adult BMI 45.0-49.9 kg/sq m Disposition Disposition: Acute Care Hospital [facility]
[2025-07-05 21:06] LABS: Anion Gap 11 (5-15); Carbon Dioxide 17.3 mmol/L (21.0-32.0); Chloride 101 mmol/L (98-108); Potassium 3.6 mmol/L (3.3-5.1)
--- NOTE | 2025-07-05 21:35 | HP.PCM.HOS_ITS ---
HPI - General General Date of Admission: 07/05/25 Date of Service: 07/05/25 Chief Complaint: Altered mentation, elevated BS, dark urine, suprapubic discomfort, polydipsia. HPI Narrative The patient is a 45 y/o F w/ PMHx: Morbid obesity, Diabetes mellitus type II with chronic neuropathy, LETITIA on BIPAP q HS, HTN, Anxiety and Depression, GERD, Chronic migraines, s/p L shoulder surgery secondary L shoulder impingement syndrome with bursitis 06/23/[address] Quiroga with subacromial decompression and debridement with arthroscopy who presents to the [facility] ED on 07/05/2025 with history of altered mental status, polyuria, polydipsia, elevated blood sugars as well as dyspnea complaint with family noting that they have been receiving texts from her that were nonsensical with additionally reported decreased urine output that has been significantly dark in color with subjective fever and chills and general Pia's with nausea but no emesis and possibly intermittent diarrhea with mild suprapubic discomfort but no flank pain prompting eventual ED evaluation to be cautious. Workup in the ED included T98.6, heart rate 78, BP 106/46, respiratory rate 18, 96% on room air with BP transiently decreasing while in the ED down to 83/61 with a MAP of 67 however most recent repeat vitals T100 oral, heart rate 72, BP 102/47, MAP 65, respiratory rate 22, 96% on room air, CBC with WBC 6.9, hemoglobin 9.5, MCV 95.9, platelet 136 without significant shift, VBG with PO277, bicarb 16, total CO2 17, CMP with sodium 130, potassium 3.6, chloride 101, carbon dioxide 17.3, anion gap 11, BUN/creatinine 41/1.98, GFR 32, glucose 533, lactic acid 2.2, hepatic profile not marked appearing aside from alk phos 183, beta hydroxybutyrate level 0.1, urinalysis with cloudy appearing urine, specific gravity 1.010, protein 30, glucose thousand, negative ketone, occult blood 150, negative nitrite, leukocyte Estrace 100 with urine WBCs 10-25 although squamous epithelial cells of note are 5-10 however there is 3+ urine bacteria, chest x- ray with cardiomegaly with questionable mild vascular congestion with no other acute findings, blood culture x 2 pending per ED, urine culture pending per ED. In the ED patient administered aggressive IV fluid hydration, Tylenol 650 mg p.o. x 1, Rocephin 2 g IV x 1, transition to maintenance IV fluids at 150 mL/h, initiated on insulin drip. [facility] Medical History Impingement of left shoulder Diabetes Fatty liver Gastric reflux BiPAP (biphasic positive airway pressure) dependence Sleep apnea Non-smoker History of stress test History of echocardiogram Cardiology follow-up encounter Abnormal ECG Prolonged Q-T interval on ECG Microalbuminuria LETITIA (obstructive sleep apnea) Back pain 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 Nausea Left shoulder pain Pain of left scapula Left upper extremity numbness Left shoulder strain Obstructive Sleep Apnea-Hypopnea Syndrome Fatty liver Type 2 diabetes mellitus with microalbuminuria Type 2 diabetes mellitus without complication, with long-term current use of insulin History of stent into kidney Anxiety Acute cholecystitis Segmental and somatic dysfunction of cervical region Migraines Acute bronchitis Acute respiratory insufficiency Dyspnea History of obstructive sleep apnea Elevated triglycerides with high cholesterol Calculus of left kidney Nonalcoholic hepatosteatosis Hydroureter, left Hydronephrosis, left Acute kidney injury Pyelonephritis Nephrolithiasis Obesity Hypertension Type 2 diabetes mellitus Segmental and somatic dysfunction of lumbar region Vertigo Left upper quadrant abdominal pain Dysuria Urinary tract infection Segmental and somatic dysfunction of pelvic region Segmental and somatic dysfunction of thoracic region Lumbar facet arthropathy Lumbosacral spondylosis Radiculopathy of lumbosacral region Disc displacement, lumbar Degeneration of intervertebral disc of lumbosacral region Home Medications ?Medication ?Instructions ?Recorded ?Last Taken ?Type blood sugar diagnostic (Blood #10 ea 04/26/20 Unknown History Glucose Test strips) ipratropium bromide 21 mcg (0.03 2 spray intranasal BI D PRN 08/23/20 08/03/23 History %) nasal spray allergies albuterol sulfate 90 mcg/actuation 2 puff inhalation Q 4H PRN 08/10/22 08/03/23 History aerosol inhaler shortness of breath or wheez ing fexofenadine 180 mg tablet 180 mg PO DAILY allergies 1 06/22/25 History (Allergy Relief (fexofenadine)) levonorgestrel 17.5 mcg/24 hr (up 1 device intrauterin e ONCE 08/10/22 06/23/25 History to 5 yrs) 19.5mg intrauterine control device tizanidine 4 mg tablet 4 mg PO Q8H PRN Muscle Spasm 08/10/22 06/20/25 History omeprazole 20 mg capsule,delayed 20 mg PO DAILY PRN ge rd 08/16/22 06/22/25 History release topiramate 100 mg tablet 100 mg PO BID seizures 08/1606/23/25 History fluoxetine 20 mg capsule 20 mg PO QHS mental health 0 12/28/22 06/22/25 History gabapentin 300 mg capsule 300 mg PO QHS nerve pain 06/22/25 History lisinopril 10 mg tablet 10 mg PO DAILY blood pressur e 12/28/22 06/22/25 History ondansetron HCl 4 mg tablet 4 mg PO Q8H PRN nausea Unknown History rimegepant 75 mg disintegrating 75 mg PO DAILY PRN rosalina ray 02/04/24 11/10/24 History tablet (Nurtec ODT) headache semaglutide 2 mg/dose (8 mg/3 mL) 2 mg subcut QWEEK Unknown History subcutaneous pen injector (Ozempic) Allergy/AdvReac Type Severity Reaction Status Date / Time Corticosteroids Allergy Hives Verified 07/05/25 17:33 (Glucocorticoids) (steroids) lidocaine AdvReac Intermediate Hives Verified 07/05/25 17:33 Family History Father Diabetes Myocardial infarction Pancreatic cancer Mother Alcohol abuse Drug abuse Grandfather Diabetes Grandmother Lung cancer Grandmother Heart disease Triple bypass surgery Surgical History History of urethral stent (~2018) Hx laparoscopic cholecystectomy (~2005) H/O: (~2005) Social History household members: none Smoking Status: Never smoker alcohol intake: never substance use type: does not use caffeine: Yes Type: coffee what type of physical activity do you participate in: walking frequency: daily seatbelt use: always do you feel safe at home: Yes ROS ROS Narrative Admission Review of Systems: CONSTITUTIONAL: No weight loss, + fever, chills, weakness or fatigue. HEENT: Eyes: No visual loss, blurred vision, double vision or yellow sclerae. Ears, Nose, Throat: No hearing loss, sneezing, congestion, runny nose or sore throat. SKIN: No rash or itching, lesions, wounds. CARDIOVASCULAR: No chest pain, chest pressure or chest discomfort, palpitations, edema, orthopnea, syncopal events. RESPIRATORY: + Dyspnea. No cough or sputum, wheezing, hemoptysis. GASTROINTESTINAL: + anorexia, nausea, loose stools. No vomiting, abdominal pain, melena, BRBPR. GENITOURINARY: + Suprapubic discomfort, decreased urine output, dark appearing urine. No urgency or retention. NEUROLOGICAL: + Altered mentation, chronic bilateral lower extremity neuropathy. No headache, dizziness, syncope, paralysis, ataxia, focal weakness, change in bowel or bladder control, seizure. MUSCULOSKELETAL: + muscle, back pain, joint pain or stiffness. HEMATOLOGIC: + Acute on possibly chronic anemia of unclear etiology, no specific easy history of bleeding or bruising. LYMPHATICS: No enlarged nodes. No history of splenectomy. PSYCHIATRIC: + History of anxiety and depression. ENDOCRINOLOGIC: No reports of sweating, cold or heat intolerance. + polydipsia. ALLERGIES:+ History of hives, allegic rhinitis. Vital Signs Vital Signs Vital Signs: 07/05/25 17:32 07/05/25 17:34 07/05/25 17:36 Temperature 98.6 F 98.6 F Temperature Source Oral Oral Pulse Rate 78 76 Respiratory Rate 18 21 H Respiratory Effort Normal Non-Labored Respiratory Depth Normal Respiratory Pattern Normal Blood Pressure 106/46 L 127/65 H Blood Pressure Mean 66 85 Pulse Ox 96 98 Oxygen Delivery Method Room Air Room Air Room Air 07/05/25 18:08 07/05/25 18:15 07/05/25 18:15 Temperature Temperature Source Pulse Rate 76 72 Respiratory Rate 20 H 24 H Respiratory Effort Respiratory Depth Respiratory Pattern Blood Pressure 118/61 118/61 Blood Pressure Mean 77 77 Pulse Ox 98 98 Oxygen Delivery Method 07/05/25 18:30 07/05/25 18:36 07/05/25 18:38 Temperature 99.7 F H Temperature Source Oral Pulse Rate 74 74 Respiratory Rate 24 H 24 H Respiratory Effort Respiratory Depth Respiratory Pattern Blood Pressure 83/61 L 114/55 L 114/55 L Blood Pressure Mean 67 74 71 Pulse Ox 97 96 98 Oxygen Delivery Method Room Air 07/05/25 18:45 07/05/25 19:00 07/05/25 19:00 Temperature 99.9 F H Temperature Source Oral Pulse Rate 72 76 71 Respiratory Rate 19 H 21 H 26 H Respiratory Effort Respiratory Depth Respiratory Pattern Blood Pressure 116/54 L 108/53 L 108/53 L Blood Pressure Mean 70 71 68 Pulse Ox 100 97 97 Oxygen Delivery Method Room Air 07/05/25 19:22 07/05/25 19:50 07/05/25 21:00 Temperature 99.9 F H 100 F H Temperature Source Oral Pulse Rate 71 73 72 Respiratory Rate 20 H 24 H 22 H Respiratory Effort Respiratory Depth Respiratory Pattern Blood Pressure 101/53 L 97/56 L 102/47 L Blood Pressure Mean 69 69 65 Pulse Ox 98 100 96 Oxygen Delivery Method Room Air Room Air Weight Weight: 289 lb 7.471 oz Body Mass Index (BMI) 45.3 Physical Exam Narrative Physical Examination: General: Awake, alert, oriented x 3 and cooperative, seated upright in ED bed in no apparent distress, fatigued and ill-appearing. Skin: Normal color, normal turgor, no icterus, no cyanosis except occasional stage ecchymoses, abrasion, status post recent left shoulder surgery with Steri- Strips still intact over trocar incisions, well-appearing, no drainage, no redness. HEENT: AT/NC, EOMI, PERRLA, dry MM, no carotid bruits, difficult to discern JVD given thickened neck. Lungs: CTA bilaterally, moderate effort, mild decrease BL bases, no rales, ronchi or wheezing. Heart: Regular rate and rhythm; no gallop, rub audible. Abdomen: Soft, morbidly obese, NTTP no suprapubic tenderness elicited, distant BS, difficult to discern distention and HSM given habitus. Extremities: No cyanosis, no clubbing, no significant distal edema noted. Neurological: Patient awake, alert, oriented as noted, cognitive function intact; pupils equally reactive to light and accommodation, cranial nerves grossly normal, moving all 4 extremities, no focal deficits, strength moderately to severely globally decreased secondary to acute presentation. Psychiatric: Affect appears flat, fatigued, ill-appearing, no acute evidence of depressive or anxiety feelings. Results Lab / Micro Data 07/05/25 17:48 07/05/25 20:45 Labs: Laboratory Results - last 24 hr 07/05/25 17:40: POC Glucose 459 H* 07/05/25 17:48: WBC 6.9, RBC 2.94 L, Hgb 9.5 L, Hct 28.2 L, MCV 95.9, MCH 32.3 H , MCHC 33.7, RDW Std Deviation 48.8 H, RDW Coeff of Itzel 13.8, Plt Count 136 L, MPV 10.4, Immature Gran % (Auto) 0.900, Neut % (Auto) 77.6 H, Lymph % (Auto) 14.4 L, [place] % (Auto) 5.8, Eos % (Auto) 0.9, Baso % (Auto) 0.4, Absolute Neuts (auto) 5.3, Absolute Lymphs (auto) 0.99, Nucleated RBC % 0, Sodium 128 L, Potassium 3.8, Chloride 98, Carbon Dioxide 15.0 L, Anion Gap 15, BUN 41 H, C reatinine 1.98 H, Estim Creat Clear Calc 51.75, Est GFR (MDRD) Non-Af 32 L, B UN/Creatinine Ratio 20.7 H, Glucose 533 H*, Lactic Acid 2.2 H*, Calcium 8.3, Phosphorus 3.0, Magnesium 2.2, Total Bilirubin 0.57, AST 19, ALT 26, Alkaline Phosphatase 183 H, Total Protein 7.1, Albumin 3.3 L, Globulin 3.7, Albumin/Globulin Ratio 0.9, b-Hydroxybutyric mmol/L 0.1 07/05/25 18:02: Urine Color Straw, Urine Clarity Sl. Cloudy, Urine pH 6.0, Ur Specific [place] 1.010, Urine Protein 30 H, Urine Glucose (UA) 1000 H, Urine Ketones Negative, Urine Occult Blood 150 H, Urine Nitrite Negative, Urine Bilirubin Negative, Urine Urobilinogen Normal, Ur Leukocyte Esterase 100 H, Urine RBC 5-10 SEEN, Urine WBC 10-25 SEEN, Ur Squamous Epith Cells 5-10 SEEN, Urine Bacteria 3+, Urine Mucus 0 SEEN 07/05/25 20:26: POC Glucose 369 H 07/05/25 20:45: Sodium 130 L, Potassium 3.6, Chloride 101, Carbon Dioxide 17.3 L , Anion Gap 11 ABG Data ABG results: ABG 07/05/25 17:55 Specimen Type SHIRA Sample Site Not entered VBG pH 7.32 VBG pO2 77 H VBG HCO3 16 L VBG Total CO2 17 L VBG O2 Sat (Calc) 94 H VBG Base Excess -10 L POC Mix VBG pCO2 Pt Tmp 31.6 L O2 Delivery Device Not entered Imaging Radiology Impression Chest X-Ray 07/05/25 18:27 IMPRESSION: Cardiomegaly with mild vascular congestion. No airspace consolidation or sizable pleural effusion. Reading Location: [id number] Assessment & Plan Assessment/Plan (1) Sepsis: (2) Complicated urinary tract infection: PLAN: Plan The patient is a 45 y/o F w/ PMHx: Morbid obesity, Diabetes mellitus type II with chronic neuropathy, LETITIA on BIPAP q HS, HTN, Anxiety and Depression, GERD, Chronic migraines who presents to the [facility] ED on 07/05/2025 with history of altered mental status, polyuria, polydipsia, elevated blood sugars as well as dyspnea complaint with family noting that they have been receiving texts from her that were nonsensical with additionally reported decreased urine output that has been significantly dark in color with subjective fever and chills and general Pia's with nausea but no emesis and possibly intermittent diarrhea with mild suprapubic discomfort but no flank pain prompting eventual ED evaluation to be cautious. #1. Acute hyperglycemia with significant electrolyte disturbances with notable hyponatremia likely falsely decreased given significant hyperglycemia with suspected Acute HHS, DKA ruled out with normal anion gap as well as normal beta hydroxybutyrate level: Will admit to the ICU, will continue aggressive IV fluid hydration, will continue insulin drip initiated per ED, will request osmolality level as suspect HHS will continue to obtain serial BMPs given electrolyte disturbances, magnesium and phosphorus levels per ED normal range, continue to trend as needed with repletion as needed, hemoglobin A1c level requested, nutrition consulted. #2. Acute Sepsis secondary to Acute Complicated Urinary Tract Infection w/ concurrently as noted #1 as a result likely (source, hypotensive, tachypneic, acute kidney injury, lactic acidosis): UA upon ED evaluation remarkable, pending UCx, continue aggressive IVFs per protocol with ED initiated, monitor I/Os, continue IV Rocephin w/ transition as able pending sensitivities and speciation. Bld cx x 2 obtained in the ED. of note patient does have a history of kidney stones therefore if clinically not improving low threshold to obtain imaging to assure no concerning findings that would require urology involvement concurrently. #3. Acute kidney injury on CKD stage II/1 per review of GFR trending: Secondary to acute presentation as noted above #1, #2. Admission BUN/Cr 41/1.98, GFR 32, prior baseline creatinine noted to be primarily 0.7-0.8. Will hydrate, hold nephrotoxic medications and repeat chemistry in AM. If no improvement would plan FeNa assessment and further evaluation #4. Acute on chronic anemia, normocytic, unclear etiology: Admission hemoglobin 9.5, MCV 95.9, previous hemoglobin primarily 13 range however has dropped intermittently upon lab review into the 11 range, unclear exact etiology as no reported hematemesis or altered stool appearance or heavy menstruation, will continue to trend, iron panel, ferritin, guaiac requested to be cautious. #5. Acute thrombocytopenia, unclear etiology: Platelets 136, baseline usually normal range, likely reactive given acute presentation, will continue to closely trend CBC. #6. Hypertension: Holding all hypertensive regimen given hypotensive presentation, add back once clinically appropriate blood pressure as well as kidney function. #7. Anxiety and depression: Will continue patient home fluoxetine however adjustments may be necessary if renal function worsens/does not improve. #8. Chronic migraines: Will temporally hold patient rimegepant regimen, will continue topiramate regimen, continue to closely monitor labs given alterations as noted above. #9. Morbid Obesity: Weight loss and lifestyle changes encouraged, nutrition consulted. #10. LETITIA: Will continue BiPAP nightly. #11. GERD: Will continue patient home PPI. #12. DVT prophylaxis: SCDs, defer chemoprophylaxis given acute on chronic anemia as noted. Charges/Coding Visit Charges Inpatient E&M: 68210 Init Hosp L3
[2025-07-05] MEDS: 0.9% Normal Saline (1000mL) 1,000 ML 150 ML IV (21:40)
[2025-07-05 21:59] LABS: Reflex Lactate? Y
--- NOTE | 2025-07-05 22:18 | CT_ITS ---
PROCEDURE: ABDOMEN/PELVIS WITHOUT CONT 07/05/2025 REASON FOR EXAM: ABD PAIN, UTI, ? KIDNEY STONE TECHNIQUE: Procedure Code: CTABDPEL Modality: CT Procedure: ABDOMEN/PELVIS WITHOUT CONT Noncontrast technique limits evaluation of the abdominal and pelvic viscera. Coronal and Sagittal reconstruction series were provided. One or more dose reduction techniques were used (e.g., Automated exposure control, adjustment of the mA and/or kV according to patient size, use of iterative reconstruction technique). COMPARISON: 02/27/2022. FINDINGS: Lack of IV and oral contrast limits evaluation on portions of the study. Cholecystectomy. A 10 mm stone is noted within the UPJ of the left renal pelvis, with mild left hydronephrosis. Mild left perinephric fat stranding is noted, likely secondary to obstruction. Mildly prominent left para-aortic lymph nodes are noted, likely reactive in nature. An IUD is seen within the uterus. The appendix is visualized and normal-appearing. No other acute abdominal or pelvic process is clearly identified. The visualized lung bases are clear. No acute osseous abnormality. No acute fracture. CT/Abdomen/Pelvis without Cont IMPRESSION: 1. A 10 mm stone at the left UPJ resulting in mild left hydronephrosis. 2. Mildly prominent reactive left para-aortic lymph nodes. Reading Location: [id number]
[2025-07-05 22:34] LABS: Osmolality, Serum 307 mOsm/KG (275-295)
[2025-07-05 22:36] LABS: Ferritin 601 ng/mL (22-378)
[2025-07-05 22:49] LABS: Anion Gap 13 (5-15); Carbon Dioxide 15.9 mmol/L (21.0-32.0); Chloride 101 mmol/L (98-108); Potassium 3.6 mmol/L (3.3-5.1)
--- OUTSIDE RECORDS SUMMARY | 2025-07-05 22:49 | XMS RPT_ITS | CCD ---
Author Organization [facility] Care Team Providers Care Pit Recorder Name Role Phone Dossi Bibiana BEEBE Unavailable Roya Dixon Unavailable Roya Dixon Unavailable Amparo Hitchcock MD Unavailable [phone] Ivette Grimes MD Primary Care Provider [facility], Keti Unavailable Dr. Ivette Grimes Primary Care Provider Dr. Ivette Grimes Referring Provider Dr. Bibiana Rehman Attending Provider [phone] Dr. Munir Siddiqui Attending Provider Dr. Marin Villalpando Attending Provider [phone] Dr. Munir Lucas Attending Provider Dr. Sam Greene Referring Provider Ivette Grimes MD Primary Care Provider [facility], [facility], Keti Unavailable Dr. Ivette Grimes Primary Care Provider Dr. Ivette Grimes Referring Provider Dr. Bibiana Rehman Attending Provider [phone] Ivette Grimes MD Primary Care Provider Dr. Ivette Grimes Primary Care Provider Dr. Ivette Grimes Referring Provider Dossi, Dr. Mccarty Attending Provider [phone] Dr. Primo Ceron Attending Provider Barre, Dr. Mcgarry Primary Care Provider Sydney, Dr. Mcgarry Referring Provider Dossi, Dr. Mccarty Attending Provider [phone] Cesar, Dr. Churchill Attending Provider Barre, Dr. Mcgarry Primary Care Provider Barre, Dr. Mcgarry Referring Provider Dossi, Dr. Mccarty Attending Provider [phone] Sydney, Dr. Mcgarry Primary Care Provider Barre, Dr. Mcgarry Referring Provider Dossi, Dr. Mccarty Attending Provider [phone] Dr. Primo Ceron Attending Provider Cesar, Dr. Churchill Attending Provider [phone] Barre Ivette SHEARER Primary Care Provider [facility], Keti Unavailable Barre, Dr. Mcgarry Primary Care Provider Barre, Dr. Mcgarry Referring Provider Dossi, Dr. Mccarty Attending Provider [phone] Ernesto SHEARER, Jemal Unavailable Barre, Dr. Mcgarry Primary Care Provider Barre, Dr. Mcgarry Referring Provider Dossi, Dr. Mccarty Attending Provider [phone] Barre, Dr. Mcgarry Primary Care Provider Barre, Dr. Mcgarry Referring Provider Dossi, Dr. Mccarty Attending Provider [phone] Jess DRAWER HARDWARE WORKER, FADUMO Ba Attending Provider Jyoti, Dr. Banuelos Attending Provider [phone] ELLE SANCHEZ Attending Unavailable SAM GREENE Referring Unavailable [facility], IVETTE James Primary Care Unavailable SANCHEZ, ELLE [...] Unavailable SYDNEY, IVETTE James Primary Care Unavailable Barre, Dr. Mcgarry Primary Care Provider Barre, Dr. Mcgarry Referring Provider Dossi, Dr. Mccarty Attending Provider [phone] Barre, Dr. Mcgarry Primary Care Provider Barre, Dr. Mcgarry Referring Provider Dossi, Dr. Mccarty Attending Provider [phone] Sydney, Dr. Mcgarry Primary Care Provider Barre, Dr. Mcgarry Referring Provider Dossi, Dr. Mccarty Attending Provider [phone] Barre, Dr. Mcgarry Primary Care Provider Barre, Dr. Mcgarry Referring Provider Dossi, Dr. Mccarty Attending Provider [phone] Barre, Dr. Mcgarry Primary Care Provider Barre, Dr. Mcgarry Referring Provider Dossi, Dr. Mccarty Attending Provider [phone] Referred, Self Primary Care Provider Unavailabl e Referred, Self Referring Provider Unavailable [facility], Keti Unavailable Dosparam, Dr. Mccarty Attending Provider [phone] Referred, Self Primary Care Provider Unavailabl e Referred, Self Referring Provider Unavailable Barre, Dr. Mcgarry Primary Care Provider Jyoti, Dr. Banuelos Attending Provider Dr. Sosa Mendez Referring Provider [phone] Dr. Niurka Kendall Emergency Provider Vanessa, Dr. [...] Provider Ivette Grimes MD Primary Care Provider [facility], Keti Unavailable Haagen SEARCH DIRECTOR.PROJECTION ENGINEER, Cindy Unavailable Suppan SEARCH DIRECTOR.PROJECTION ENGINEER, Lubna A Unavailable Suppan SEARCH DIRECTOR.PROJECTION ENGINEER, Lubna A Unavailable [phone] Suppan SEARCH DIRECTOR.PROJECTION ENGINEER, Lubna A Unavailable [phone] Dr. Ivette Grimes MD Primary Care Provider Dr. Sam Pearl MD Attending Provider Dr. Sam Pearl MD Emergency Provider Dr. Ivette Grimes MD Referring Provider Dossi CONCEPCIÓN, Dr. Mccarty Attending Provider Dr. Buddy Hall DO Attending Provider Dr. Buddy Hall DO Emergency Provider Tanya DRAWER HARDWARE WORKER-CJenni Attending Provider Tanya DRAWER HARDWARE WORKER-CJenni Referring Provider Dr. Ivette Grimes MD Attending Provider Sydney SHEARER, Dr. Mcgarry Primary Care Provider Sydney SHEARER, Dr. Mcgarry Referring Provider Dossi DC, Dr. Mccarty Attending Provider [phone] Brett Quiroga MD Attending Provider [phone] Junaid SHEARER, Brett Referring Provider [phone] Sydney SHEARER, Dr. Mcgarry Primary Care [...] ilable Jyoti SHEARER, Dr. Banuelos Attending Provider JENNI MARTÍNEZ Attending Unavailabl e SYDNEY, IVETTE James Primary Care Unavailable SYDNEY, IVETTE J Primary [...] IVETTE James Primary Care Unavailable SYDNEY, IVETTE J Primary Care Unavailable SYDNEY, IVETTE James Attending Unavailable SYDNEY, IVETTE James Attending Unavailable SYDNEY, IVETTE J Primary Care Unavailable uJnaid SHEARER, Brett Other Provider DosBibiana virgen Attending Unavailable Sydney, Ivette Referring Unavailable Sydney, Ivette Primary Care Unavailable Sydney, Ivette Primary Care Unavailable Bibiana Rehman Attending Unavailable Sydney, Ivette Referring Unavailable Barre, Ivette Primary Care Unavailable DosBibiana virgen Attending Unavailable Sydney, Ivette Referring Unavailable Dossi, Bibiana Attending Unavailable Sydney, Ivette Primary Care Unavailable Barre, Ivette Referring Unavailable Dossi, Bibiana Attending Unavailable Barre, Ivette Referring Unavailable Sydney, Ivette Primary Care Unavailable Mollison, Brett Attending Unavailable Mollison, Brett Referring Unavailable Barre, Ivette Primary Care Unavailable Dossi, Bibiana Attending Unavailable Sydney, Ivette Referring Unavailable Sydney, Ivette Primary Care Unavailable Dossi, Bibiana Attending Unavailable Barre, Ivette Referring Unavailable Barre, Ivette Primary Care Unavailable Dossi, Bibiana Attending Unavailable Sydney, Ivette Referring Unavailable Barre, Ivette Primary Care Unavailable Dossi, Bibiana Attending Unavailable Sydney, Ivette Referring Unavailable Sydney, Ivette Primary Care Unavailable Sydney, Ivette Primary Care Unavailable Mollison, Brett Attending Unavailable Sydney, Ivette Referring Unavailable Pina, Abhi Attending Unavailable Barre, Ivette Primary Care Unavailable Sydney, Ivette Primary Care Unavailable Mollison, Brett Referring Unavailable Mollison, Brett Attending Unavailable Buddy Hall Attending Unavailable Barre, Ivette Primary Care Unavailable Sam Pearl Attending Unavailable Sydney, Ivette Primary Care Unavailable Sydney, Ivette Attending Unavailable Sydney, Ivette Referring Unavailable Barre, Ivette Primary Care Unavailable Mollison, Brett Attending Unavailable Mollison, Brett Referring Unavailable Sydney, Ivette Primary Care Unavailable Mollison, Brett Attending Unavailable Barre, Ivette Referring Unavailable Barre, Ivette Primary Care Unavailable Dossi, Bibiana Attending Unavailable Barre, Ivette Referring Unavailable Barre, Ivette Primary Care Unavailable Dossi, Bibiana Attending Unavailable Barre, Ivette Referring Unavailable Sydney, Ivette Primary Care Unavailable Dossi, Bibiana Attending Unavailable Sydney, Ivetet Referring Unavailable Barre, Ivette Primary Care Unavailable Sydney, Ivette Primary Care Unavailable Mollison, Brett Referring Unavailable Mollison, Brett Consulting Unavailable Mollison, Brett Attending Unavailable Sydney, Ivette Primary Care Unavailable Mollison, Brett Attending Unavailable Barre, Ivette Referring Unavailable Dossi, Bibiana Attending Unavailable Barre, Ivette Primary Care Unavailable Barre, Ivette Referring Unavailable Dossi, Bibiana Attending Unavailable Barre, Ivette Referring Unavailable Barre, Ivette Primary Care Unavailable Jenni Martínez Attending Unavailable Jenni Martínez Referring Unavailable Barre, Ivette Primary Care Unavailable Barre, Ivette Primary Care Unavailable Sydney, Ivette Attending Unavailable Sydney, Ivette Referring Unavailable Barre, Ivette Primary Care Unavailable Sydney, Ivette Attending Unavailable Sydney, Ivette Referring Unavailable Sydney, Ivette Referring Unavailable Sydney, Ivette Primary Care Unavailable Sydney, Ivette Attending Unavailable Sydney, Ivette Primary Care Unavailable Assessment, Health Risk Attending Unavaila ble Assessment, Health Risk Referring Unavaila ble Jess DENNIS, Jesenia Attending Unavailable Ivette Grimes Primary Care Unavailable Ivette Grimes Referring Unavailable Brett Quiroga Referring Unavailable Vin Montes Attending Unavailable Ivette Grimes [facility] Unavailable Allergies Allergy Classification Reported Allergen(s) Allergy Type Date of Onset Reaction(s) Facility (20 sources) Betamethasone; Translations: [BETAMETHASONE DIPROPIONATE] Drug Allergy 12-21-19 [facility] Work Phone: (20 sources) Lidocaine; Translations: [LIDOCAINE] Drug Allergy 12-24-19 [facility] Work Phone: (7 sources) Corticosteroids Allergy to substance 01-01-20 [facility] Work Phone: (20 sources) Glucocorticoid Receptor Agonists Allergy to substance 10-16-20 [facility] (20 sources) dapagliflozin; Translations: [DAPAGLIFLOZIN] Drug Allergy 08-05-20 [facility] (20 sources) metFORMIN; Translations: [METFORMIN] Drug Allergy 08-05-20 [facility] (1 source) Corticosteroids Drug allergy (disorder) 07-05-20 [facility] (1 source) Lidocaine Drug Allergy 07-05-20 [facility] Medications Current Medications Medication Drug Class(es) [...] 12:10am Calculus of kidney Calculus of kidney [id number] actuat albuterol 0.09 mg/actuat metered dose [...] Comment on above: Take 1 tablet by [facility] once daily. FLUoxetine 20 mg oral capsule [...] Comment on above: Take [address] [facility] once daily for 7 days, THEN 2 capsules once daily. Take [address] [facility] once daily. gabapentin 300 mg oral [...] 3:46pm Start: 05-22-[address] [facility] three times daily GABAPENTIN 300 MG CAPS 1 po tid GABAPENTIN [id number] Jackson Brown Comment on above: Take 2 capsules by m out twice daily for 90 days. Take 1 tablet in AM, afternoon and bedtime. If after 2 days symptoms persist, increase to 1 tab in AM, afternoon and 2 tabs at bedtime. Take one po qhs Take 1 capsule by mo ut twice daily for 180 days. Take one po qhs ipratropium bromide 0.021 mg/actuat metered dose nasal spray (20 sources) Anticholinergic Start: 05-02-2023 Ipratropium [place] (ATROVENT) 21 mcg (0.03 %) nasal spray Use 2 Sprays in the nose every 12 hours. 30 mL 5 05/02/2023 Active Start: 08-23-2020 Ipratropium Br omide 0.03 % spray,non-aerosol Active 2 NMA INTRANASAL TWICE A DAY as needed for allergies August 23, 2020 12:00am administer into each nostril Start: 08-23-2020 take 1 spray(s) nasa l route twice daily Ipratropium [place] Active 2 SPRAY INTRANASAL TWICE A DAY August 23, 2020 12:00am administer into each nostril Start: 03-14-2020 End: 05-01-2023 Ipratropium [place] (ATROVEN T) 0.03 % nasal spray Use [...] the CT contrast administration guidelines link. levonorgestrel 0.242788 mg/hr intrauterine system (20 sources) Progestin, Progestin-containing [...] Start: 09-09-2017 JOJO 13.5 MG IUD LEVONORGESTREL [id number] Amparo Hitchcock MD Comment on above: 1 [...] 2021 4:26pm must administer with a meal/food [place]-3 Fatty Acids (Fish Oil Concentrate) 1,000 mg capsule (20 sources) Start: 02-21-2021 take 1 capsule by mouth once daily [place]-3 Fatty Acids (Fish Oil Concentrate) 1,000 mg capsule Active 1000 MG PO DAILY February 21, 2021 9:19am Start: 02-21-2021 End: 10-16-2024 take 1 capsule by mouth once daily [place]-3 Fatty Acids (Fish Oil Concentrate) 1,000 mg capsule Discontinued 1000 mg PO DAILY February 21, 2021 12:00am October 16, 2024 10:15pm supplement Start: 02-21-2021 End: 10-16-2024 take 1 capsule by mouth once daily [place]-3 Fatty Acids (Fish Oil Concentrate) 1,000 mg capsule Discontinued 1000 mg PO DAILY February 21, 2021 12:00am October 16, 2024 10:15pm Start: 02-21-2021 take 1 capsule by mo uth once daily [place]-3 Fatty Acids (Fish Oil Concentrate) 1,000 mg capsule Active 1000 MG PO DAILY February 20, 2021 11:00pm Start: 02-21-2021 take 1 capsule by mo uth once daily [place]-3 Fatty Acids (Fish Oil Concentrate) 1,000 mg [...] every 8 hours as needed for nausea/vomiting. Spxilipj-Nd-Wrn-Fe -FA tab (20 sources) Start: 1 take 1 tablet by mouth once daily Hqqurwhc-Pc-Ptn-F e-FA tab Take 1 tablet by mouth once daily. 0 03/14/2011 Active Comment on above: Take 1 tablet by ishmael th once daily. fanrpbec-elv-Gg-FA 1 mg capsule (20 sources) Start: 0 take 1 capsule by mouth once daily ccetkwke-vgf-Vl-F A 1 mg capsule Active 1 CAP PO DAILY April 26, 2020 10:18am Start: 04-26-2020 End: 08-05-2023 take 1 capsule by mouth once daily duujrfhx-rlx-Ub-FA 1 mg capsule Discontinued 1 CAP PO DAILY April 25, 2020 11:00pm August 05, 2023 10:25am Start: 04-26-2020 End: 08-05-2023 take 1 capsule by mouth once daily xnnmcaqs-hdk-Ji-FA 1 mg capsule Discontinued 1 CAP PO DAILY April 26, 2020 12:00am August 05, 2023 11:25am Start: 04-26-2020 take 1 capsule by mo uth once daily slkhctsa-pon-Ha-FA 1 mg capsule Active 1 CAP PO DAILY April 25, 2020 11:00pm Start: 04-26-2020 take 1 capsule by mo uth once daily cshzlred-jxp-Vb-FA 1 mg capsule Active 1 CAP PO [...] by ishmael once daily as needed. Semaglutide (13 sources) [...] as needed for muscle spasms TIZANIDINE HCL [id number] Sammy Victor CELERY CUTTER-C Start: 04-29-2017 End: 08-10-2022 take 1 tablet by mouth once daily as needed for muscle spasms Tizanidine 4 MG tablet Discontinued 4 mg PO DAILY NEEDED as needed for Muscle Spasm April 29, 2017 12:00am August 10, 2022 3:09pm Start: 04-26-2017 End: 05-06-2017 ZANAFLEX 2 MG CAPS Take 1-2 tablets every 8 hours as needed. TIZANIDINE HCL [id number] Santana IRENE Comment on above: Take 1 [...] mg PO TWICE A DAY 14 7 April 28, 2020 12:00am May 04, 2020 12:00am May 05, 2020 12:02am Start: 09-09-2017 TROKENDI XR 20 0 MG DV63C-IFZ TOPIRAMATE [id number] Amparo Hitchcock MD Start: 09-28-2016 End: 09-09-2017 TOPIRAMATE 15 MG CPSP 11/28 TOPIRAMATE [id number] Santana IRENE Comment on above: Take 1 tablet by ishmael th twice daily. Take 1 tab in AM and 2 tabs in PM. One tab daily Take 1 tablet by ishmael th two times a day. Completed/Discontinued Medications Medication Drug Class(es) Dates Sig (Normalized) Sig (Original) ACETAMINOPHEN CAPS (5 sources) Start: 09-28-2016 End: 09-09-2017 TYLENOL CAPS ACETAMINOPHEN CAPS [id number] Amparo Hitchcock MD Start: 09-28-2016 TYLENOL CAPS 2 ACETAMINOPHEN CAPS [id number] Santana IRENE acetaminophen 325 mg / HYDROcodone [...] one every 6 hours as needed. HYDROCODONE-ACETAMINOPHEN [id number] Santana IRENE amitriptyline hydrochloride 25 mg oral [...] 1 {tbl} PO TWICE A DAY 14 0 October 27, 2023 1:00am December 10, 2023 10:58am Start: 10-27-2023 End: 12-10-2023 take 1 tablet by mouth twice daily Amoxicillin-Pot Clavulanate Discontinued 1 TABLET PO TWICE A DAY 14 October 27, [...] End: 09-09-2017 DIFLUNISAL 500 MG TABS DIFLUNISAL [id number] Raghav IRENE 0.5 ml dulaglutide 1.5 mg/ml [...] Start: 09-28-2016 LORAZEPAM 1 MG TABS LORAZEPAM [id number] Santana IRENE Start: 10-27-2013 End: 04-26-2020 take [...] DAILY NEEDED as needed for Pain Score -08/13 10 0 May 05, 2020 4:05pm August [...] both ears once daily for 7 days. [place]-3 Fatty Acids (20 sources) Start: 04-26-2020 End: 08-23-2020 take 500 mg by mouth once daily [place]-3 Fatty Acids Discontinued 500 MG PO DAILY April 26, 2020 10:19am August 23, 2020 10:22am Start: 04-26-2020 End: 08-23-2020 take 500 mg by mouth once daily [place]-3 Fatty Acids Discontinued 500 MG PO DAILY April 25, 2020 11:00pm August 23, 2020 9:22am Start: 04-26-2020 End: 08-23-2020 take 500 mg by mouth once daily [place]-3 Fatty Acids Discontinued 500 MG PO DAILY April 26, 2020 12:00am August 23, 2020 10:22am [place]-3 Fatty Acids (FISH OIL) 500 mg cap (20 sources) Start: 10-09-2019 End: 06-07-2025 take 1 capsule by mouth once daily [place]-3 Fatty Acids (FISH OIL) 500 mg cap Take 1 capsule by mouth once daily. 30 capsule 11 10/09/2019 06/07/2025 Discontinued Start: 10-09-2019 take 1 capsule by mo [facility] once daily [place]-3 Fatty Acids (FISH OIL) 500 mg cap Take 1 capsule by mouth once daily. 30 capsule 11 10/09/2019 Active Comment on above: Take 1 capsule by mo [facility] once daily. [place]-3 Fatty Acids 500 mg capsule (13 sources) Start: 0 End: 0 take 1 capsule by mouth once daily [place]-3 Fatty Acids 500 mg capsule Discontinued 500 [...] on above: Take 1 capsule by mo [facility] daily before breakfast. 1/2 hr before meal. [...] One tablet by mouth daily PHENTERMINE HCL [id number] Amparo Hitchcock MD potassium chloride 20 meq [...] MG TABS 1 tablet every morning PREDNISONE [id number] Raghav IRENE pregabalin 75 mg oral capsule [...] on pill 3 times per day thereafter Kkcvfsdy-Zi-Gjd-Fe-FA ( FORMULA) ORAL Tab (20 sources) Start: take 1 tablet by mouth once daily Nlayzyzx-Ir-Xex-Fe-FA ( FORMULA) ORAL Tab Take 1 tablet by mouth once daily. 0 03/14/2011 Active Comment on above: Take 1 tablet by ishmael th once daily. Sjrzedex-Rsi-Nn-Fa 1 mg capsule (13 sources) Start: End: take 1 capsule by mouth once daily Swqpumtm-Kei-Mm-Fa 1 mg capsule Discontinued 1 NMA PO [...] microalbuminuria, with long-term current use of insulin ([facility]) Inject 1 mg subcutaneously one time a week. 3 mL 5 01/22/2025 07/21/2025 Active sulfamethoxazole 800 mg / trimethoprim 160 mg oral tablet (20 sources) Dihydrofolate Reductase Inhibitor Antibacterial, Sulfonamide Antimicrobial Start: 02-04-2024 End: 03-09-2024 Sulfamethoxazole-Trimethopri m 800-160 mg tablet Discontinued 1 {tbl} PO TWICE A DAY 6 February 04, 2024 12:00am March 09, 2024 [...] : 09-04-2010-09-2019 Chronic Diabetes mellitus without complication (11 sources) [...] fall, initial encounter] Onset: 09-04-20 Resolved : 09-04-20 05-06-2020 Episodic Essential hypertension (20 sources) Hypertensive disorder; [...] injury of brain] Onset: 09-28-20 Resolved : 09-09-2009-28-2016 Episodic Malaise and fatigue (20 sources) Fatigue; [...] liver, not elsewhere classified] Onset: 01-18-20 23 05-15-2020 Chronic Other liver diseases (20 sources) Non-alcoholic [...] Obesity, Class III, BMI 40-49.9 (morbid obesity) ([facility]); Translations: [Obesity, Class III, BMI 40-49.9 (morbid obesity) ([facility])] Onset: 01-03-20 Unclassified (1 source) Low back [...] 07-02-2006 07-02-2006 Episodic Other aftercare (1 source) senior living (current) use of insulin; Translations: [Type 2 [...] Test Name Value Interpretation Reference Range Facility Bedside Glucoseon 07-05-2025 FINGERSTICK GLU 369 mg/dL High 74-106 [facility] Comment on above: Result Comment: SANTA GEMENT OF PATIENT CARE PER NURSING PROTOCOL Performed By: #### L 100.0100, L503.6005, L500.4050 #### [facility] [address] [place], [address] FINGERSTICK GLU 459 mg/dL Invalid Interpretation Code 74-106 [facility] Comment on above: Result Comment: SANTA GEMENT OF PATIENT CARE PER NURSING PROTOCOL Performed By: #### L 501.080 #### [facility] [address] [place], [address] Beta-Hydroxbytyrateon 2024 BETA-HYDROXYBUT 0.1 mmol/L Normal 0.0-0.3 [facility] Comment on above: Performed By: #### L 100.0100, L503.6005, L500.4050 #### [facility] [address] [place], [address] CBC W/Diff, Automatedon Absolute Lymph 0.99 X10 3/uL Normal 0.83-4.51 [facility] Comment on above: Performed By: #### L 100.0100, L503.6005, L500.4050 #### [facility] [address] [place], [address] Absolute Neut 5.3 X10 3/uL Normal 2.0-7.7 [facility] Comment on above: Performed By: #### L 100.0100, L503.6005, [id number] #### [facility] [address] [place], [address] Basophils/100 WBC (Bld) 0.4 % Normal 0-1 [facility] Comment on above: Performed By: #### L 100.0100, L503.6005, [id number] #### [facility] [address] [place], [address] Eosinophils/100 WBC (Bld) 0.9 % Normal 0-5 [facility] Comment on above: Performed By: #### L 100.0100, L503.6005, [id number] #### [facility] [address] [place], [address] Erythrocyte distribution width (RBC) [Ratio] 13.8 % Normal 11.6-14.6 [facility] Comment on above: Performed By: #### L 100.0100, L503.6005, L500.4050 #### [facility] [address] [place], [address] Hematocrit (Bld) [Volume fraction] 28.2 % Low 37-47 [facility] Comment on above: Performed By: #### L 100.0100, L503.6005, L500.4050 #### [facility] [address] [place], [address] Hemoglobin (Bld) [Mass/Vol] 9.5 g/dL Low 12.0-15.0 [facility] Comment on above: Performed By: #### L 100.0100, L503.6005, L500.4050 #### [facility] [address] [place], [address] IG% 0.900 Normal 0.0-0.9 [facility] Comment on above: Result Comment: IG% - Immature Granulocytes (promyelocytes, myelocytes and metamyelocytes) > 1% indicates that a LEFT SHIFT is Present. Performed By: #### L 100.0100, L503.6005, L500.4050 #### [facility] [address] [place], [address] Lymphocytes/100 WBC (Bld) 14.4 % Low 19-41 [facility] Comment on above: Performed By: #### L 100.0100, L503.6005, [id number] #### [facility] [address] [place], [address] MCH (RBC) [Entitic mass] 32.3 pg High 27.0-32.0 [facility] Comment on above: Performed By: #### L 100.0100, L503.6005, L500.4050 #### [facility] [address] [place], [address] MCHC (RBC) [Mass/Vol] 33.7 g/dL Normal 32-36 [facility] Comment on above: Performed By: #### L 100.0100, L503.6005, [id number] #### [facility] [address] [place], [address] MCV (RBC) [Entitic vol] 95.9 fL Normal 81-99 [facility] Comment on above: Performed By: #### L 100.0100, L503.6005, [id number] #### [facility] [address] [place], [address] Monocytes/100 WBC (Bld) 5.8 % Normal 0-10 [facility] Comment on above: Performed By: #### L 100.0100, L503.6005, [id number] #### [facility] [address] [place], [address] Neutrophils/100 WBC (Bld) 77.6 % High 47-70 [facility] Comment on above: Performed By: #### L 100.0100, L503.6005, [id number] #### [facility] [address] [place], [address] Nucleated RBC (Bld) [#/Vol] 0 10*3/uL Normal 0-5 [facility] Comment on above: Performed By: #### L 100.0100, L503.6005, [id number] #### [facility] [address] [place], [address] Platelet mean volume (Bld) [Entitic vol] 10.4 fL Normal 6.2-12.0 [facility] Comment on above: Performed By: #### L 100.0100, L503.6005, [id number] #### [facility] [address] [place], [address] Platelets (Bld) [#/Vol] 136 10*3/uL Low 150-450 [facility] Comment on above: Performed By: #### L 100.0100, L503.6005, [id number] #### [facility] [address] [place], [address] RBC (Bld) [#/Vol] 2.94 10*6/uL Low 4.2-5.4 [facility] Comment on above: Performed By: #### L 100.0100, L503.6005, L500.4050 #### [facility] [address] [place], [address] RDW SD 48.8 fl High 35.1-43.9 [facility] Comment on above: Performed By: #### L 100.0100, L503.6005, L500.4050 #### [facility] [address] [place], [address] WBC (Bld) [#/Vol] 6.9 10*3/uL Normal 4.4-11.0 [facility] Comment on above: Performed By: #### L 100.0100, L503.6005, L500.4050 #### [facility] [address] [place], [address] Chest PA and Lateralon 07-[address] [facility] Imaging Services [address] [place] [address] Chest PA and Lateral MR#: [id number] Acct: [id number] Name: TORI GRAY Rep #: [id number] : 1980 F 45 From: Kyle Hankins MD PCP: Dr. Ivette Grimes MD Status: REG ER Study: Chest PA and Lateral Date of Exam: 07/05/25 Exam# [id number] Ordering Dr: Abhi Pina MD PROCEDURE: CHEST PA AND LATERAL 07/05/2025 REASON FOR EXAM: SHORTNESS OF BREATH TECHNIQUE: Procedure Code: RADCXR Modality: DX Procedure: CHEST PA AND LATERAL COMPARISON: 12/11/2024 FINDINGS: Lungs/Pleura: No appreciable focal consolidation, pneumothorax or pleural effusion. Heart/Mediastinum: Enlarged cardiac silhouette, and central vascular congestion. Bones/Soft tissues: Mild degenerative changes of the thoracic spine. RAD/Chest PA and Lateral IMPRESSION: Cardiomegaly with mild vascular congestion. No airspace consolidation or sizable pleural effusion. Reading Location: [id number] CC: Dr. Abhi Pina MD; Dr. Ivette Grimes MD Senior Wealth Advisor: Signed Normal [facility] Comprehensive Metabolic Prof ilon 07-05-2025 Albumin [Mass/Vol] 3.3 g/dL Low 3.5-5.0 [facility] Comment on above: Performed By: #### L 100.0100, L503.6005, L500.4050 #### [facility] [address] [place], [address] Albumin/Globulin [Mass ratio] 0.9 {ratio} Normal 0.9-2.4 [facility] Comment on above: Performed By: #### L 100.0100, L503.6005, L500.4050 #### [facility] [address] [place], [address] ALK PHOS 183 U/L High 35-104 [facility] Comment on above: Performed By: #### L 100.0100, L503.6005, L500.4050 #### [facility] [address] [place], [address] ALT [Catalytic activity/Vol] 26 U/L Normal <=34 [facility] Comment on above: Performed By: #### L 100.0100, L503.6005, L500.4050 #### [facility] [address] [place], [address] AST [Catalytic activity/Vol] 19 U/L Normal <=31 [facility] Comment on above: Performed By: #### L 100.0100, L503.6005, L500.4050 #### [facility] [address] [place], [address] Bilirubin [Mass/Vol] 0.57 mg/dL Normal 0.00-1.30 [facility] Comment on above: Performed By: #### L 100.0100, L503.6005, L500.4050 #### [facility] [address] [place], [address] BUN/CRE 20.7 RATIO High 10-20 [facility] Comment on above: Performed By: #### L 100.0100, L503.6005, L500.4050 #### [facility] [address] [place], [address] Calcium [Mass/Vol] 8.3 mg/dL Normal 7.6-11.0 [facility] Comment on above: Performed By: #### L 100.0100, L503.6005, L500.4050 #### [facility] [address] [place], [address] Chloride [Moles/Vol] 98 mmol/L Normal 98-108 [facility] Comment on above: Performed By: #### L 100.0100, L503.6005, L500.4050 #### [facility] [address] [place], [address] CO2 [Moles/Vol] 15.0 mmol/L Low 21.0-32.0 [facility] Comment on above: Performed By: #### L 100.0100, L503.6005, L500.4050 #### [facility] [address] [place], [address] Creatinine [Mass/Vol] 1.98 mg/dL High 0.70-1.20 [facility] Comment on above: Performed By: #### L 100.0100, L503.6005, L500.4050 #### [facility] [address] [place], [address] ECRCL 51.75 ml/min Normal 50-250 [facility] Comment on above: Performed By: #### L 100.0100, L503.6005, L500.4050 #### [facility] [address] [place], [address] GAP 15 Normal 5-15 [facility] Comment on above: Performed By: #### L 100.0100, L503.6005, L500.4050 #### [facility] [address] [place], [address] GFR/1.73 sq M.predicted among non-blacks MDRD (S/P/Bld) [Vol rate/Area] 32 mL/min/{1.73_m2} Low >60 [facility] Comment on above: Result Comment: mL/m in/1.73m2 CKD-EPI Creatinine Equation (2020) Performed By: #### L 100.0100, L503.6005, L500.4050 #### [facility] [address] [place], [address] Globulin (S) [Mass/Vol] 3.7 g/dL Normal 2.2-4.2 [facility] Comment on above: Performed By: #### L 100.0100, L503.6005, L500.4050 #### [facility] [address] [place], [address] Glucose [Mass/Vol] 533 mg/dL Invalid Interpretation Code 70-99 [facility] Comment on above: Result Comment: Crit ical Result(s) Called at: 1907 by:??MIGUELITO KELLY TO LIZ CEDILLO Results read back by same. Performed By: #### L 100.0100, L503.6005, L500.4050 #### [facility] [address] [place], [address] Potassium [Moles/Vol] 3.8 mmol/L Normal 3.3-5.1 [facility] Comment on above: Performed By: #### L 100.0100, L503.6005, L500.4050 #### [facility] [address] [place], [address] Sodium [Moles/Vol] 128 mmol/L Low 133-145 [facility] Comment on above: Performed By: #### L 100.0100, L503.6005, L500.4050 #### [facility] [address] [place], [address] T PROT 7.1 g/dL Normal 5.9-8.4 [facility] Comment on above: Performed By: #### L 100.0100, L503.6005, L500.4050 #### [facility] [address] [place], [address] Urea nitrogen [Mass/Vol] 41 mg/dL High 4-19 [facility] Comment on above: Performed By: #### L 100.0100, L503.6005, L500.4050 #### [facility] [address] [place], [address] Electrolyte Panelon 07-05-20 25 Chloride [Moles/Vol] 101 mmol/L Normal 98-108 [facility] Comment on above: Performed By: #### L 100.0100, L503.6005, L500.4050 #### [facility] [address] [place], [address] CO2 [Moles/Vol] 17.3 mmol/L Low 21.0-32.0 [facility] Comment on above: Performed By: #### L 100.0100, L503.6005, L500.4050 #### [facility] [address] [place], [address] GAP 11 Normal 5-15 [facility] Comment on above: Performed By: #### L 100.0100, L503.6005, L500.4050 #### [facility] [address] [place], [address] Potassium [Moles/Vol] 3.6 mmol/L Normal 3.3-5.1 [facility] Comment on above: Performed By: #### L 100.0100, L503.6005, L500.4050 #### [facility] [address] [place], [address] Sodium [Moles/Vol] 130 mmol/L Low 133-145 [facility] Comment on above: Performed By: #### L 100.0100, L503.6005, L500.4050 #### [facility] [address] [place], [address] Lactic Acidon 07-05-2025 Lactate [Moles/Vol] 2.2 mmol/L Invalid Interpretation Code 0.0-2.0 [facility] Comment on above: Order Comment: Y Result Comment: Crit ical Result(s) Called at: 1907 by:??MIGUELITO KELLY TO LIZ CEDILLO Results read back by same. Performed By: #### L 100.0100, L503.6005, L500.4050 #### [facility] [address] [place], [address] Magnesiumon 07-05-2025 Magnesium [Mass/Vol] 2.2 mg/dL Normal 1.5-2.2 [facility] Comment on above: Performed By: #### L 100.0100, L503.6005, L500.4050 #### [facility] [address] [place], [address] Phosphoruson 07-05-2025 Phosphate [Mass/Vol] 3.0 mg/dL Normal 2.7-4.5 [facility] Comment on above: Performed By: #### L 100.0100, L503.6005, L500.4050 #### [facility] [address] [place], [address] Urinalysis, Completeon 07-05 BACTERIA 3+ /hpf Normal None Seen [facility] Comment on above: Order Comment: CLEAN CATCH Performed By: #### L 100.0100, L503.6005, L500.4050 #### [facility] [address] [place], [address] EPI,SQUAMOUS 5-10 SEEN Normal 5-10 [facility] Comment on above: Order Comment: CLEAN CATCH Performed By: #### L 100.0100, L503.6005, L500.4050 #### [facility] [address] [place], [address] RBC 5-10 SEEN Normal 0-5 [facility] Comment on above: Order Comment: CLEAN CATCH Performed By: #### L 100.0100, L503.6005, L500.4050 #### [facility] [address] [place], [address] WBC 10-25 SEEN Normal 0-5 [facility] Comment on above: Order Comment: CLEAN CATCH Performed By: #### L 100.0100, L503.6005, L500.4050 #### [facility] [address] [place], [address] Mucus Ql (Urine sed) 0 SEEN Normal [facility] Comment on above: Order Comment: CLEAN CATCH Performed By: #### L 100.0100, L503.6005, L500.4050 #### [facility] [address] [place], [address] Venous Blood Gason 5 Blood Gas Type SHIRA [facility] Comment on above: Performed By: #### L 9000.0810 ####[facility] [address] [place], [address] CO2 [Moles/Vol] 17 mmol/L Low 23-33 [facility] Comment on above: Performed By: #### L 9000.0810 ####[facility] [address] [place], [address] HCO3 (Bld) [Moles/Vol] 16 mmol/L Low 22-26 [facility] Comment on above: Performed By: #### L 9000.0810 ####[facility] [address] [place], [address] O2 Delivery Dev Not entered [facility] Comment on above: Performed By: #### L 9000.0810 ####[facility] [address] [place], [address] SITE Not entered [facility] Comment on above: Performed By: #### L 9000.0810 ####[facility] [address] [place], [address] VBG BE -10 mmol/L Low -1.0-3.5 [facility] Comment on above: Performed By: #### L 9000.0810 ####[facility] [address] [place], [address] VBG pCO2 31.6 mmHg Low 41-51 [facility] Comment on above: Performed By: #### L 9000.0810 ####[facility] [address] [place], [address] VBG pH 7.32 Normal 7.32-7.42 [facility] Comment on above: Performed By: #### L 9000.0810 ####[facility] [address] [place], [address] VBG PO2 77 mmHg High 25-40 [facility] Comment on above: Performed By: #### L 9000.0810 ####[facility] [address] [place], [address] VBG SO2 94 High 50-70 [facility] Comment on above: Performed By: #### L 9000.0810 ####[facility] [address] [place], [address] Orthopedic Visit Reporton Orthopedic Visit Report [facility] [address] [place] [address] OFFICE VISIT Date of Service: 06/25/25 MR#: [id number] Acct: [id number] Name: TORI GRAY Rep #: [id number] : 1980 Provider: Dr. Brett kessler MD Age/Sex: 45/F Location: [facility] Status: Signed Intake Vital Signs 05/06/25 10:04 [...] Yes HPI (more content not included)... Normal [facility] Bedside Glucoseon 06-23-2025 FINGERSTICK GLU 210 mg/dL High 74-106 [facility] Comment on above: Result Comment: [place] OF PATIENT CARE PER NURSING PROTOCOL Performed By: #### L 501.080 #### [facility] [address] [place], [address] Discharge Instructionon 06-05 Discharge Instruction [facility] Medical Records Department [address] [place] [address] Instructions for Home/Discharge Instructions 06/23/25 0836 MR#: [id number] Acct: [id number] Name: TORI GRAY Rep #: [id number] : 1980 45 From: Brett Quiroga MD PCP: Dr. Ivette Grimes MD Status:REG [facility] [place] [place] Discharge Instructions Diet Discharge Diet: No restrictions [...] Brett Quiroga Primary Care Provider: Ivette Grimes Patient Instructions: After Shoulder Arthroscopy Print Language: Tanzanian Discharge Orders/Prescription s Prescriptions: New oxycodone-acetamino phen [...] can be placed): Home, Self Care 06/23/25 0839 Brett Quiroga MD CC: Dr. Ivette Grimes MD Signed Normal [facility] By: Brett Quiroga on 06-23-2025 Glucose [Mass/Vol] 210 mg/dL High 74-106 [facility] Comment on above: MANAGEMENT OF PATIEN T CARE PER NURSING PROTOCOL MR/POSTOP.ANEon 06-23-2025 MR/POSTOP.[facility] Medical Records Department [address] [place] [address] Anesthesia Postop Eval I 06/23/25 0857 MR#: [id number] Acct: [id number] Name: TORI GRAY Rep #: [id number] : 1980 45 From: Ankur Templeton CRNA PCP: Dr. Ivette Grimes MD Status:REG [facility] [place] [place] Y Race: C Location: [place] [address] Anesthesia: Postop Eval I Current Vital Signs Temperature: 97.8 F Pulse Rate: 74 Blood Pressure: 114/70 Respiratory Rate: 16 Pulse Ox: 94 Assessment Airway patent: Yes Spontaneous unlabored respirations: Yes nausea: No Vomiting: No Anesthesia Complication: No Fluid Hydration Crystalloid volume administer (ml): 800 Total IV fluid infused: 800 Progress Note Anesthesia document: Postop Eval 1 completed: Yes 06/23/25857 Date Ankur Templeton [place] ATTENDANT Cosigner Signature: Date CC: Signed Normal [facility] Operative Reporton 5 Operative Report [facility] Medical Records Department [address] [place] [address] Operative Report 06/23/25 0831 MR#: [id number] Acct: [id number] Name: TORI GRAY Rep #: [id number] : 1980 45 From: Brett Quiroga MD PCP: Dr. Ivette Grimes MD Status:REG [facility] [place] [place] Location: [address] 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 model making supervisor: Yes Chemistry Research Assistant: jamila Tasks completed by phlebotomy lab assistant: Retracting Additional licensed physical therapist assistant?: No Type of Anesthesia: Block,Regional and [...] home according to day surgery criteria. CPT 76106, [address]29 Surgical Findings: As above Complications Complications: No Admit VTE Documentation VTE Present on Admission: No VTE Mechan Device Prophylaxis: SCD's VTE Pharm Prophylaxis ordered?: No Reason prophylaxis not ordered: Treatment Not Indicated 06/23/25 0836 Cosigner Signature (if applicable): CC: Dr. Brett Quiroga MD; Dr. Ivette Grimes MD Signed Normal [facility] ,Urineon 06-23-2025 Beta HCG ( test) Ql (U) Negative Normal [facility] Comment on above: Result Comment: Very dilute urine specimens, as indicated by a low specific gravity, may not contain open claims representative levels of hCG. If is still suspected, a first morning urine specimen should be collected 48 hours later and tested. Performed By: #### L 400.7600 #### [facility] [address] [place], [place], [address] Urine testOrdered By: Woody Choudhary on 06-23-2025 HCG ( test) Ql (U) Negative [facility] Comment on above: Very dilute urine sp ecimens, as indicated by a low specificgravity, may not contain open claims representative levels of hCG. If is still suspected, a first morning urinespecimen should be collected 48 hours later and tested. Chiropractic Reporton 2024 Chiropractic Report [facility] [address] [place] [address] OFFICE VISIT Date of Service: 06/17/25 MR#: [id number] Acct: [id number] Name: TORI GRAY Rep #: [id number] : 1980 Provider: CONCEPCIÓN Montgomery Age/Sex: 45/F Location: [facility] [facility] Status: Signed Intake Vital Signs 05/06/25 10:04 [...] continues to (more content not included)... Normal [facility] MR/PAT.Boom 06-15-2025 MR/PAT.[facility] Medical Records Department [address] [place] [address] PAT - Anesthesia 06/15/25 1647 MR#: [id number] Acct: [id number] Name: TORI GRAY Rep #: [id number] : 1980 45 From: Newton Preciado MD PCP: Dr. 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 Female Yes 06/10/25 09:08 HX of Motion [...] 05/06/25 10:04 Respiratory Assessment Respiratory Assessment - broadcast 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: Respiratory Tract Infection Hx - broadcast 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 Hx Respiratory Tract Infection No 06/10/25 09:08 STOP Sleep Apnea STOP Sleep Apnea - broadcast 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: STOP Sleep Apnea - broadcast 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 Hx Hypertension No: LISINOPRIL FOR LIVER 06/10/25 [...] Tobacco Use History Tobacco Use History - broadcast 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: Tobacco Use History - broadcast 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 Tobacco Use Non-smoker 03/09/25 09:20 Smoking Status Never smoker 06/10/25 09:08 Hx Tobacco Use No 06/10/25 09:08 Years Smoking Packs Smoked per Day Smoking Cessation Date was within the last 15 years Hx Smoking Cessation Date Hx Smoking Cessation Counseling Hematologic Medial History Hematologic Hx - broadcast 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: 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 Normal [facility] Electrocardiogram reportOrde red By: Vin Montes on 06-11-[address] [facility] Cardiovascular Services [address] [place] [address] 12 Lead EKG 06/10/25 1247 MR#: [id number] Acct: [id number] Name: TORI GRAY Rep #:[id number] : 1980 44 From: Vin Montes MD Attending Dr: Dr. Brett Quiroga MD Status: PRE [facility] [place] [place] Ordering Dr: Woody Choudhary MD Date: Location: [facility] [place] [place] Sex: F C Admitted: Test Reason : PRE OP Blood Pressure : */* mmHG Vent. Rate : 60 BPM Atrial Rate : 60 BPM P-R Int : 146 ms QRS Dur : 88 ms QT Int : 472 ms P-R-T Axes : 13 58 28 degrees QTcB Int : 472 ms Normal sinus rhythm Low voltage QRS Prolonged QT Abnormal ECG Confirmed by JYOTI SHEARER, VIN ([id number]), editorial intern PRISCILA FERRERA ([id number]) on 06/11/2025 5:54:48 AM Referred By: Brett Quiroga Confirmed By: VIN MONTES MD 06/11/25 0554 Date _ Vin Montes MD CC: Dr. Woody Choudhary MD; Dr. Brett Quiroga MD; Dr. Ivette Grimes MD ~ Signed [facility] Work Phone: 12 Lead EKGon 06-10-[address] [facility] Cardiovascular Services [address] [place] [address] 12 Lead EKG 06/10/25 1247 MR#: [id number] Acct: [id number] Name: TORI GRAY Rep #: [id number] : 1980 44 From: Vin Montes MD Attending Dr: Dr. Brett Quiroga MD Status: CO E [facility] [place] [place] Ordering Dr: Woody Choudhary MD Date: 06/10/25 Location: [facility] [place] [place] Sex: F C Admitted: Test Reason : PRE OP Blood Pressure : */* mmHG Vent. Rate : 60 BPM Atrial Rate : 60 BPM P-R Int : 146 ms QRS Dur : 88 ms QT Int : 472 ms P-R-T Axes : 13 58 28 degrees QTcB Int : 472 ms Normal sinus rhythm Low voltage QRS Prolonged QT Abnormal ECG Confirmed by JYOTI SHEARER, VIN ([id number]), editorial intern PRISCILA FERRERA ([id number]) on 06/11/2025 5:54:48 AM Referred By: Brett Quiroga Confirmed By: VIN MONTES MD 06/11/25 0554 Date Vin Montes MD CC: Dr. Woody Choudhary MD; Dr. Brett Quiroga MD; Dr. Ivette Grimes MD Signed Normal [facility] LDL CHOLESTEROL DIRECT (FOR REMOTE [facility] USE)on 06-10-2025 [facility] LDL, Directon 06-10-2025 Cholesterol in LDL [Mass/Vol] 96 mg/dL Normal 0-99 [facility] Comment on above: Result Comment: Perf ormed at: CB - [facility] [address] [id number] Menagerie Caretaker: José Antonio Aldana PhD, Phone: [phone] Performed By: #### L 501.9985, A3437.0834 ####[facility] [address] [place], [address] COMMENT TNP Normal . [facility] Comment on above: Performed By: #### L 501.9985, L3884.3566 ####[facility] [address] [place], [address] CNPNon 06-09-2025 [facility] Telephone (FAMPWS) ---- TORI GRAY ([id number]) 1980 F Date Time Provider Department 06/09/25 IVETTE GRIMES [facility] During your visit today, we recorded the following information about you: Nrimala Storey LPN 06/09/2025 10:21 AM Signed HgbA1C from [facility] 7.4 Ivette Grimes MD 06/09/2025 10:49 AM Signed Lets increase the ozempic to 2 mg a day. Call sugars in two weeks. Watch the diet. Nirmala Storey LPN 06/09/2025 3:25 PM Addendum Vidmaker message sent to the patient. Juliana Murphy [...] microalbuminuria, with long-term current use of insulin ([facility]) [E11.29, R80.9, Z79.4] Order(s):HBA1C (OUTSIDE) [3508082] Order #: [id number] semaglutide (OZEMPIC) 2 mg/dose (8 mg/3 mL) pen injectorInject 2 mg subcutaneously one time a week.Disp: 3 mLRfl: 5 LDL CHOLESTEROL DIRECT (FOR REMOTE [facility] USE) [SQRLDL] Order #: [id number] Prescriptions as of 06/18/2025 - omeprazole (PRILOSEC) [...] tablet by mouth once daily. - Ipratropium [place] (ATROVENT) 21 mcg (0.03 %) nasal spray [...] DM - Controlled E11.9 Insulin: No - Ruatghdh-Fo-Zpg-Fe- FA tab Take 1 tablet by mouth [...] 05/06/2009 01/23/2010 Routine general medical examination at [facility]*01/23/2010 12/06/2012 Class: Chronic Routine gynecological examination [Z01.419] 01/23/2010 02/22/2014 Class: Chronic Morbid obesity (HCC) [E66.01] 01/23/2010 06/07/2025 Lumbar Disc Disorder [M51.9] 02/16/2010 Routine general medical examination at [facility]*12/06/2012 02/22/2014 Anxiety [F41.9] 06/07/2014 Type 2 [...] [I10] 10/ (more content not included)... Normal [facility] Cholesterol in LDL Direct as say [Mass/Vol]Ordered By: Ivette Grimes on 06-09-2025 Cholesterol in LDL [Mass/Vol] 96 mg/dL 0-99 [facility] Comment on above: Performed at: [facility] [address] [id number] Director: José Antonio Aldana PhD, Phone: [phone] HBA1C (OUTSIDE)on 06-09-2025 [facility] Hemoglobin A1con 06-09-2025 HbA1c (Bld) [Mass fraction] 7.4 % High <=5.6 [facility] Comment on above: Result Comment: Norm al < 5.7 % Prediabetic 5.7 - 6.4 % Diabetic >or= 6.5 % Please note range changes. Performed By: #### L 501.9985, L3300.4490 ####[facility] [address] [place], [address] Hemoglobin A1c percentageOrd ered By: Ivette Grimes on 06-09-2025 HbA1c (Bld) [Mass fraction] 7.4 % High <5.7 [facility] Comment on above: Normal < 5.7 % Predi abetic 5.7 - 6.4 % Diabetic >or= 6.5 % Please note range changes. Laboratory - Miscellaneous t estsOrdered By: Ivette Grimes on 06-09-2025 Service comment (Unsp spec) [Interp] TNP [facility] Comment on above: Test not performed CNOVon 06-07-2025 CNOV Office Visit (FAMPWS) ---- TORI GRAY ([id number]) 1980 F Date Time Provider Department 06/07/25 6:40 PM IVETTE GRIMESWS During your visit today, [...] with Dr. Quiroga on June 23 at [facility]. - Keep your neurology appointment on August 04 for Botox treatment of migraines. - Attend your gynecology visit with Dr. Camacho on July 08 for your Pap smear. - Schedule your mammogram [facility]; the order has [...] June [address] Quiroga at [facility]. - Follow-up appointment with Dr. Camacho [...] 1 tablet by mouth once daily. Ipratropium [place] (ATROVENT) 21 mcg (0.03 %) nasal spray [...] 1 Each by INTRAUTERINE route as directed. Jqbbphhs-Ux-Mzw-Fe- FA tab Take 1 tablet by mouth [...] blood sugar(s) (more content not included)... Normal [facility] Absolute lymphocyte countOrd ered By: HEALTH ASSESSMENT on 06-05-2025 Lymphocytes Auto (Unsp spec) [#/Vol] 2.43 10*3/uL 0.83-4.51 [facility] Absolute neutrophil countOrd ered By: HEALTH ASSESSMENT on 06-05-2025 Neutrophils (Bld) [#/Vol] 6.3 10*3/uL 2.0-7.7 [facility] Absolute nucleated red blood cell countOrdered By: HEALTH ASSESSMENT on 06-05-2025 Nucleated RBC (Bld) [#/Vol] 0.00 10*3/uL 0-5 [facility] Anion gap in Serum or Plasma Ordered By: HEALTH ASSESSMENT on 06-05-2025 Anion gap [Moles/Vol] 14 mmol/L 5-15 [facility] BUN/creatinine ratioOrdered By: HEALTH ASSESSMENT on 06-05-2025 Urea nitrogen/Creatinine [Mass ratio] 10.6 mg/mg 10-20 [facility] Bilirubin Test strip Ql (U)O rdered By: HEALTH ASSESSMENT on 06-05-2025 Bilirubin Ql (U) Negative Negative [facility] Bilirubin directOrdered By: HEALTH ASSESSMENT on 06-05-2025 Bilirubin.direct [Mass/Vol] 0.20 mg/dL 0.00-0.30 [facility] Bilirubin, totalOrdered By: HEALTH ASSESSMENT on 06-05-2025 Bilirubin [Mass/Vol] 0.51 mg/dL 0.00-1.30 [facility] CBC, Employeeon 06-05-2025 Absolute Lymph 2.43 X10 3/uL Normal 0.83-4.51 [facility] Comment on above: Performed By: #### L 501.080 #### [facility] [address] [place], [address] Absolute Neut 6.3 X10 3/uL Normal 2.0-7.7 [facility] Comment on above: Performed By: #### L 501.080 #### [facility] [address] [place], [address] Basophils/100 WBC (Bld) 0.9 % Normal 0-1 [facility] Comment on above: Performed By: #### L 501.080 #### [facility] [address] [place], [address] Eosinophils/100 WBC (Bld) 1.8 % Normal 0-5 [facility] Comment on above: Performed By: #### L 501.080 #### [facility] [address] [place], [address] Erythrocyte distribution width (RBC) [Ratio] 14.5 % Normal 11.6-14.6 [facility] Comment on above: Performed By: #### L 501.080 #### [facility] [address] [place], [address] Hematocrit (Bld) [Volume fraction] 39.2 % Normal 37-47 [facility] Comment on above: Performed By: #### L 501.080 #### [facility] [address] [place], [address] Hemoglobin (Bld) [Mass/Vol] 13.5 g/dL Normal 12.0-15.0 [facility] Comment on above: Performed By: #### L 501.080 #### [facility] [address] [place], [address] Lymphocytes/100 WBC (Bld) 25.5 % Normal 19-41 [facility] Comment on above: Performed By: #### L 501.080 #### [facility] [address] [place], [address] MCH (RBC) [Entitic mass] 32.4 pg High 27.0-32.0 [facility] Comment on above: Performed By: #### L 501.080 #### [facility] [address] [place], [address] MCHC (RBC) [Mass/Vol] 34.4 g/dL Normal 32-36 [facility] Comment on above: Performed By: #### L 501.080 #### [facility] [address] [place], [address] MCV (RBC) [Entitic vol] 94.0 fL Normal 81-99 [facility] Comment on above: Performed By: #### L 501.080 #### [facility] [address] [place], [address] Monocytes/100 WBC (Bld) 3.6 % Normal 0-10 [facility] Comment on above: Performed By: #### L 501.080 #### [facility] [address] [place], [address] Neutrophils/100 WBC (Bld) 66.2 % Normal 47-70 [facility] Comment on above: Performed By: #### L 501.080 #### [facility] [address] [place], [address] NRBC # 0.00 10 3/uL Normal 0-5 [facility] Comment on above: Performed By: #### L 501.080 #### [facility] [address] [place], [address] Nucleated RBC (Bld) [#/Vol] 0 10*3/uL Normal 0-5 [facility] Comment on above: Performed By: #### L 501.080 #### [facility] [address] [place], [address] Platelet mean volume (Bld) [Entitic vol] 9.6 fL Normal 6.2-12.0 [facility] Comment on above: Performed By: #### L 501.080 #### [facility] [address] [place], [address] Platelets (Bld) [#/Vol] 192 10*3/uL Normal 150-450 [facility] Comment on above: Performed By: #### L 501.080 #### [facility] [address] [place], [address] RBC (Bld) [#/Vol] 4.17 10*6/uL Low 4.2-5.4 [facility] Comment on above: Performed By: #### L 501.080 #### [facility] [address] [place], [address] RDW SD 49.7 fl High 35.1-43.9 [facility] Comment on above: Performed By: #### L 501.080 #### [facility] [address] [place], [address] WBC (Bld) [#/Vol] 9.5 10*3/uL Normal 4.4-11.0 [facility] Comment on above: Performed By: #### L 501.080 #### [facility] [address] [place], [address] Calculated very low density lipoprotein (VLDL) cholesterol measurementOrdered By: HEALTH ASSESSMENT on 06-05-2025 Calculated very low density lipoprotein (VLDL) cholesterol measurement 62 mg/dL High 5-40 [facility] Carbon dioxide, total [Moles /volume] in Central venous bloodOrdered By: HEALTH ASSESSMENT on 06-05-2025 CO2 [Moles/Vol] 17.5 mmol/L Low 21.0-32.0 [facility] Chloride assayOrdered By: HE ALTH ASSESSMENT on 06-05-2025 Chloride [Moles/Vol] 105 mmol/L 98-108 [facility] Employee Profileon LDH 188 U/L Normal 84-246 [facility] Comment on above: Performed By: #### L 501.080 #### [facility] [address] [place], [address] Phosphate [Mass/Vol] 2.2 mg/dL Low 2.7-4.5 [facility] Comment on above: Performed By: #### L 501.080 #### [facility] [address] [place], [address] URIC 6.9 mg/dL High 2.6-6.0 [facility] Comment on above: Result Comment: The drugs N-Acetylcysteine and Metamizole may falsely depress this assay. Performed By: #### L 501.080 #### [facility] [address] [place], [address] Erythrocyte distribution wid th ratioOrdered By: HEALTH ASSESSMENT on 06-05-2025 Erythrocyte distribution width (RBC) [Ratio] 14.5 % 11.6-14.6 [facility] Erythrocyte distribution wid th standard deviationOrdered By: HEALTH ASSESSMENT on 06-05-2025 Erythrocyte distribution width (RBC) [Ratio] 49.7 fl High 35.1-43.9 [facility] Glomerular filtration rate ( GFR) estimation/1.73 sq m using serum, plasma, or whole bOrdered By: HEALTH ASSESSMENT on 06-05-2025 GFR/1.73 sq M.predicted among non-blacks MDRD (S/P/Bld) [Vol rate/Area] 94 mL/min/{1.73_m2} >60 [facility] Comment on above: mL/min/1.73m2 CKD-EP I Creatinine Equation (2020) Hematocrit Auto (Bld) [Volum e fraction]Ordered By: HEALTH ASSESSMENT on 06-05-2025 Hematocrit (Bld) [Volume fraction] 39.2 % 37-47 [facility] Hemoglobin measurementOrdere d By: HEALTH ASSESSMENT on 06-05-2025 Hemoglobin (Bld) [Mass/Vol] 13.5 g/dL 12.0-15.0 [facility] Ketones Test strip Ql (U)Ord ered By: HEALTH ASSESSMENT on 06-05-2025 Ketones Ql (U) Negative Negative [facility] LDL calc ser/plasOrdered By: HEALTH ASSESSMENT on 06-05-2025 Cholesterol in LDL [Mass/Vol] 92 mg/dL [facility] Comment on above: Wzqmjpjkiw=753-612 m g/dL & Higher Ijka=012 mg/dL or greaterFriedwald Equation for LDL-C Laboratory - Chemistry and C hemistry - challengeOrdered By: HEALTH ASSESSMENT on 06-05-2025 AST [Catalytic activity/Vol] 41 U/L High <32 [facility] Lactate dehydrogenase (LDH) measurementOrdered By: HEALTH ASSESSMENT on 06-05-2025 LDH [Catalytic activity/Vol] 188 U/L 84-246 [facility] MCV (mean corpuscular volume ) determinationOrdered By: HEALTH ASSESSMENT on 06-05-2025 MCV (RBC) [Entitic vol] 94.0 fL 81-99 [facility] Mean corpuscular hemoglobin (MCH) determinationOrdered By: HEALTH ASSESSMENT on 06-05-2025 MCH (RBC) [Entitic mass] 32.4 pg High 27.0-32.0 [facility] Mean corpuscular hemoglobin concentration (MCHC) determinationOrdered By: HEALTH ASSESSMENT on 06-05-2025 MCHC (RBC) [Mass/Vol] 34.4 g/dL 32-36 [facility] Mean platelet volume determi nationOrdered By: HEALTH ASSESSMENT on 06-05-2025 Platelet mean volume (Bld) [Entitic vol] 9.6 fL 6.2-12.0 [facility] Neutrophil percentageOrdered By: HEALTH ASSESSMENT on 06-05-2025 Neutrophils/100 WBC (Bld) 66.2 % 47-70 [facility] Nitrite Test strip Ql (U)Ord ered By: HEALTH ASSESSMENT on 06-05-2025 Nitrite Ql (U) Negative Negative [facility] Nucleated red blood cell per centageOrdered By: HEALTH ASSESSMENT on 06-05-2025 Nucleated RBC/100 WBC (Bld) [Ratio] 0 % 0-5 [facility] Platelet countOrdered By: HE ALTH ASSESSMENT on 06-05-2025 Platelets (Bld) [#/Vol] 192 10*3/uL 150-450 [facility] Potassium measurement (mass/ volume)Ordered By: HEALTH ASSESSMENT on 06-05-2025 Potassium (Unsp spec) [Mass/Vol] 4.0 mmol/L 3.3-5.1 [facility] Protein Test strip Ql (U)Ord ered By: HEALTH ASSESSMENT on 06-05-2025 Protein Ql (U) 100 mg/dl High Negative [facility] RBC Auto (Bld) [#/Vol]Ordere d By: HEALTH ASSESSMENT on 06-05-2025 RBC (Bld) [#/Vol] 4.17 10*6/uL Low 4.2-5.4 [facility] Screening total cholesterol/ high density lipoprotein (HDL) cholesterol ratioOrdered By: HEALTH ASSESSMENT on 06-05-2025 Cholesterol.total/Choles terol in HDL [Mass ratio] 5.63 {ratio} [facility] Serum creatinine measurement (mass/volume)Ordered By: HEALTH ASSESSMENT on 06-05-2025 Creatinine [Mass/Vol] 0.80 mg/dL 0.70-1.20 [facility] Serum globulin measurementOr dered By: HEALTH ASSESSMENT on 06-05-2025 Globulin (S) [Mass/Vol] 3.3 g/dL 2.2-4.2 [facility] Serum glucose measurement (m ass/volume)Ordered By: HEALTH ASSESSMENT on 06-05-2025 Glucose [Mass/Vol] 210 mg/dL High 70-99 [facility] Serum or plasma alanine arizmendi otransferase (ALT) measurementOrdered By: HEALTH ASSESSMENT on 06-05-2025 ALT [Catalytic activity/Vol] 43 U/L High <35 [facility] Serum or plasma albumin sharron urement (mass/volume)Ordered By: HEALTH ASSESSMENT on 06-05-2025 Albumin [Mass/Vol] 4.2 g/dL 3.5-5.0 [facility] Serum or plasma albumin/glob ulin mass ratioOrdered By: HEALTH ASSESSMENT on 06-05-2025 Albumin/Globulin [Mass ratio] 1.3 {ratio} 0.9-2.4 [facility] Serum or plasma alkaline toyin sphatase measurementOrdered By: HEALTH ASSESSMENT on 06-05-2025 ALP [Catalytic activity/Vol] 84 U/L 35-104 [facility] Serum or plasma calcium sharron urement (mass/volume)Ordered By: HEALTH ASSESSMENT on 06-05-2025 Calcium [Mass/Vol] 8.8 mg/dL 7.6-11.0 [facility] Serum or plasma cholesterol in HDL measurement (mass/volume)Ordered By: HEALTH ASSESSMENT on 06-05-2025 Cholesterol in HDL [Mass/Vol] 33 mg/dL Low >40 [facility] Comment on above: National Cholesterol Education Program (NCEP) guidelines:<40 mg/dL: Low HDL-cholesterol (major risk factor for CHD)>= 60 mg/dL: High HDL-cholesterol (negative risk factor for CHD)HDL-cholesterol is affected by a number of factors, e.g. smoking, exercise, hormones, sex and age. Serum or plasma cholesterol measurement (mass/volume)Ordered By: HEALTH ASSESSMENT on 06-05-2025 Cholesterol [Mass/Vol] 187 mg/dL <201 [facility] Comment on above: Cholesterol level, D esirable <200 mg/dLBorderline high cholesterol 200-239 mg/dLHigh cholesterol >=240 mg/dLRecommendations of the NCEP Adult Treatment Panel for the following risk-cutoff thresholds for the [place] population. Serum or plasma urea nitroge n measurement (mass/volume)Ordered By: HEALTH ASSESSMENT on 06-05-2025 Urea nitrogen [Mass/Vol] 9 mg/dL 4-19 [facility] Serum or plasma uric acid me asurement (mass/volume)Ordered By: HEALTH ASSESSMENT on 06-05-2025 Urate [Mass/Vol] 6.9 mg/dL High 2.6-6.0 [facility] Comment on above: The drugs N-Acetylcy steine and Metamizole may falsely depress this assay. Sodium levelOrdered By: HEAL TH ASSESSMENT on 06-05-2025 Sodium [Moles/Vol] 137 mmol/L 133-145 [facility] Total proteinOrdered By: CARLEEN LT ASSESSMENT on 06-05-2025 Protein [Mass/Vol] 7.5 g/dL 5.9-8.4 [facility] Triglycerides measurementOrd ered By: HEALTH ASSESSMENT on 06-05-2025 Triglyceride [Mass/Vol] 310 mg/dL High <199 [facility] Comment on above: The drugs N-Acetylcy steine and Metamizole may falsely depress this assay. Normal range: <150 mg/dLBorderline High: 150-199 mg/dLHigh: 200-499 mg/dLVery High: >500 mg/dL [employer]inalysis, Employeeon 06-05 BILIRUBIN URINE Negative Normal Negative [facility] Comment on above: Order Comment: Urine , Random Performed By: #### L 501.080 #### [facility] [address] [place], [address] Clarity (U) Sl. Cloudy Normal Clear [facility] Comment on above: Order Comment: Urine , Random Performed By: #### L 501.080 #### [facility] [address] [place], [address] Color (U) Yellow Normal Yellow [facility] Comment on above: Order Comment: Urine , Random Performed By: #### L 501.080 #### [facility] [address] [place], [address] GLUCOSE, UR Normal Normal Normal [facility] Comment on above: Order Comment: Urine , Random Performed By: #### L 501.080 #### [facility] [address] [place], [address] KETONE UR Negative Normal Negative [facility] Comment on above: Order Comment: Urine , Random Performed By: #### L 501.080 #### [facility] [address] [place], [address] LEUK ESTERASE 500 /ul Abnormal Negative [facility] Comment on above: Order Comment: Urine , Random Performed By: #### L 501.080 #### [facility] [address] [place], [address] Nitrite Ql (U) Negative Normal Negative [facility] Comment on above: Order Comment: Urine , Random Performed By: #### L 501.080 #### [facility] [address] [place], [address] OCCULT BLOOD-UR 25 /ul Abnormal Negative [facility] Comment on above: Order Comment: Urine , Random Performed By: #### L 501.080 #### [facility] [address] [place], [address] pH UR 6.0 Normal 5.0 - 8.0 [facility] Comment on above: Order Comment: Urine , Random Performed By: #### L 501.080 #### [facility] [address] [place], [address] PROT DIPSTX 100 mg/dl Abnormal Negative [facility] Comment on above: Order Comment: Urine , Random Performed By: #### L 501.080 #### [facility] [address] [place], [address] SP.GR. DIPSTX 1.015 Normal 1.002-1.030 [facility] Comment on above: Order Comment: Urine , Random Performed By: #### L 501.080 #### [facility] [address] [place], [address] UROBILI Normal Normal Normal [facility] Comment on above: Order Comment: Urine , Random Performed By: #### L 501.080 #### [facility] [address] [place], [address] Urine clarityOrdered By: A [facility] ASSESSMENT on 06-05-2025 Clarity (U) Sl. Cloudy Clear [facility] Urine color determinationOrd ered By: HEALTH ASSESSMENT on 06-05-2025 Color (U) Yellow Yellow [facility] Urine glucose detectionOrder ed By: HEALTH ASSESSMENT on 06-05-2025 Glucose Ql (U) Normal mg/dl Normal [facility] Urine leukocyte esterase det ection by dipstickOrdered By: HEALTH ASSESSMENT on 06-05-2025 Leukocyte esterase Test strip Ql (U) 500 /ul High Negative [facility] Urine pHOrdered By: HEALTH A SSESSMENT on 06-05-2025 pH (U) 6.0 [pH] 5.0 - 8.0 [facility] Urine specific gravity measu rementOrdered By: HEALTH ASSESSMENT on 06-05-2025 Specific gravity (U) [Rel density] 1.015 1.002-1.030 [facility] Urine urobilinogen measureme ntOrdered By: HEALTH ASSESSMENT on 06-05-2025 Urobilinogen Ql (U) Normal mg/dl Normal [facility] White blood cell (WBC) count Ordered By: HEALTH ASSESSMENT on 06-05-2025 WBC (Bld) [#/Vol] 9.5 10*3/uL 4.4-11.0 [facility] Chiropractic Reporton 2024 Chiropractic Report [facility] [address] [place] [address] OFFICE VISIT Date of Service: 06/01/25 MR#: [id number] Acct: [id number] Name: TORI GRAY Rep #: [id number] : 1980 Provider: CONCEPCIÓN Montgomery Age/Sex: 44/F [facility] Status: Signed Intake Vital Signs 03/22/25 09:08 [...] left t (more content not included)... Normal [facility] Orthopedic Visit Reporton Orthopedic Visit Report [facility] [address] [place] [address] OFFICE VISIT Date of Service: 05/06/25 MR#: [id number] Acct: [id number] Name: TORI GRAY Rep #: [id number] : 1980 Provider: Dr. Brett kessler MD Age/Sex: 44/F Location: [facility] Status: Signed Intake Vital Signs 03/22/25 09:08 [...] tablet 10 mg PO DAILY blood pressure /2 02/2405/06/25 History ondansetron HCl 4 mg tablet 4 [...] by me, (more content not included)... Normal [facility] Chiropractic Reporton 2024 Chiropractic Report [facility] [address] [place] [address] OFFICE VISIT Date of Service: 04/21/25 MR#: [id number] Acct: [id number] Name: TORI GRAY Rep #: [id number] : 1980 Provider: CONCEPCIÓN Montgomery Age/Sex: 44/F [facility] Status: Signed Intake Vital Signs 03/22/25 09:08 [...] 7 days #30 ea 04/05/25 Rx packet [facility] Medical History Abnormal ECG Prolonged Q-T interval [...] appointment w (more content not included)... Normal [facility] Magnetic resonance imaging r eportOrdered By: Salazar Tyson on 04-19-[address] [facility] [address] [place], [place] [address] Upper Ext Joint Only(Routine) MR#: [id number] Acct: [id number] Name: TORI GRAY Rep #: [id number] : 1980 F 44 From: Moncho Tyson MD PCP: Dr. Ivette Grimes MD Status: REG C EVER Study:Upper Ext Joint Only(Routine) Date of Exam: 04/17/25 Exam# [id number] Ordering Dr: Brett Quiroga MD PROCEDURE: UPPER [...] subacromial subdeltoid bursa, with bursitis. [facility] CC: Dr. Brett Quiroga MD; Dr. Ivette Grimes MD ~ Senior Wealth Advisor: Signed [facility] Upper Ext Joint Only(Routine )on 04-17-2025 Upper Ext Joint Only(Routine) [facility] [address] [place] [id number] Upper Ext Joint Only(Routine) MR#: [id number] Acct: [id number] Name: TORI GRAY Rep #: [id number] : 1980 F 44 From: Salazar Tyson MD PCP: Dr. Ivette Grimes MD Status: REG CLI Study: Upper Ext Joint Only(Routine) Date of Exam: 0 04/17/25 Exam# [id number] Ordering Dr: Brett Quiroga MD PROCEDURE: UPPER [...] Brett Quiroga MD; Dr. Ivette Grimes MD Senior Wealth Advisor: Signed [facility] 04-07-2025 [facility] Telephone (FAMPWS) ---- TORI GRAY ([id number]) 1980 F Date Time Provider Department 04/07/25 IVETTE GRIMES [facility] During your visit today, we recorded [...] tablet by mouth once daily. - Ipratropium [place] (ATROVENT) 21 mcg (0.03 %) nasal spray [...] Each by INTRAUTERINE route as directed. - [place]-3 Fatty Acids (FISH OIL) 500 mg cap Take 1 capsule by mouth once daily. - blood sugar diagnostic (BLOOD GLUCOSE TEST) test strip Test blood sugar(s) 1 times daily. Dx: Type 2 DM - Controlled E11.9 Insulin: Yes - Lancets lancets Test blood sugar(s) 1 times daily. Dx: Type 2 DM - Controlled E11.9 Insulin: No - Dmhabdbh-Hz-Oyx-Fe- FA tab Take 1 tablet by mouth [...] 01/23/2010 Routine general medical examination at a [facility]*01/23/2010 12/06/2012 Class: Chronic Routine gynecological examination [...] 09/04/2022 09/04/2022 (more content not included)... Normal [facility] Chiropractic Reporton 2024 Chiropractic Report [facility] [address] [place] [address] OFFICE VISIT Date of Service: 04/05/25 MR#: [id number] Acct: [id number] Name: TORI GRAY Rep #: [id number] : 1980 Provider: CONCEPCIÓN Montgomery Age/Sex: 44/F [place] [facility] Status: Signed Intake Vital Signs 03/22/25 09:08 [...] Quiroga last week (more content not included)... [facility] 04-01-2025 [facility] Telephone ([facility] ---- TORI GRAY ([id number]) 1980 F Date Time Provider Department 04/01/25 AMANDA ARTEAGA NETNMN During your visit today, we recorded the following information about you: Nakia Caraballo RN 04/01/2025 12:47 PM Signed Botox approved until 11/03/25. Patient and scheduling made aware. She is a patient of [facility] but due to her being out on maternity leave, patient will need scheduled with another FÉLIX. Saw Amanda on 03/09/25. Latonia Caraballo RN, BSN Allergies As of Date: 04/01/2025 Noted Allergy Reaction FARXIGA (DAPAGLIFLOZIN) 08/05/2024 8 - GI Upset LIDOCAINE 12/24/2019 4 - Hives METFORMIN 08/05/2024 8 - GI Upset STEROIDS (BETAMETHASONE DIPROPION* 2 4 - Hives Date Reviewed: 01/22/2025 Reviewed by: Nirmaal Storey LPN - Fully Assessed Reason for [...] tablet by mouth once daily. - Ipratropium [place] (ATROVENT) 21 mcg (0.03 %) nasal spray [...] Each by INTRAUTERINE route as directed. - [place]-3 Fatty Acids (FISH OIL) 500 mg cap Take 1 capsule by mouth once daily. - blood sugar diagnostic (BLOOD GLUCOSE TEST) test strip Test blood sugar(s) 1 times daily. Dx: Type 2 DM - Controlled E11.9 Insulin: Yes - Lancets lancets Test blood sugar(s) 1 times daily. Dx: Type 2 DM - Controlled E11.9 Insulin: No - Bcllcejy-Kk-Moc-Fe- FA tab Take 1 tablet by mouth [...] 01/23/2010 Routine general medical examination at a [facility]*01/23/2010 12/06/2012 Class: Chronic Routine gynecological examination [Z01.419] 01/23/2010 02/22/2014 Class: Chronic Morbid Obesity [E66.01] 01/23/2010 Lumbar Disc Disorder [M51.9] 02/16/2010 Routine general medical examination at [facility]*12/06/2012 02/22/2014 Anxiety [F41.9] 06/07/2014 Type 2 [...] mellitus [Z86.39] (more content not included)... Normal [facility] Chiropractic Reporton 2024 Chiropractic Report [facility] [place] [address] OFFICE VISIT Date of Service: 03/22/25 MR#: [id number] Acct: [id number] Name: TORI GRAY Rep #: [id number] : 1980 Provider: CONCEPCIÓN Montgomery Age/Sex: 44/F Location: [facility] Status: Signed Intake Vital Signs 03/09/25 09:20 [...] 7 days #30 ea 03/22/25 Rx packet PFS Medical History Abnormal ECG Prolonged Q-T interval [...] an a (more content not included)... Normal [facility] Orthopedic Visit Reporton Orthopedic Visit Report [facility] [address] [place] [address] OFFICE VISIT Date of Service: 03/22/25 MR#: [id number] Acct: [id number] Name: TORI GRAY Rep #: [id number] : 1980 Provider: Dr. Brett kessler MD Age/Sex: 44/F Location: [facility] Status: Signed Intake Vital Signs 11/11/24 05:55 [...] me, Dr. West (more content not included)... [facility] 03-19-2025 [facility] ---- TORI GRAY ([id number]) 1980 F Date Time Provider Department 03/19/25 AMANDA ARTEAGANMMN During your visit today, we recorded the [...] tablet by mouth once daily. - Ipratropium [place] (ATROVENT) 21 mcg (0.03 %) nasal spray [...] Each by INTRAUTERINE route as directed. - [place]-3 Fatty Acids (FISH OIL) 500 mg cap Take 1 capsule by mouth once daily. - blood sugar diagnostic (BLOOD GLUCOSE TEST) test strip Test blood sugar(s) 1 times daily. Dx: Type 2 DM - Controlled E11.9 Insulin: Yes - Lancets lancets Test blood sugar(s) 1 times daily. Dx: Type 2 DM - Controlled E11.9 Insulin: No - Svunnhmi-Qe-Idu-Fe- FA tab Take 1 tablet by mouth [...] 01/23/2010 Routine general medical examination at a [facility]*01/23/2010 12/06/2012 Class: Chronic Routine gynecological examination [Z01.419] 01/23/2010 02/22/2014 Class: Chronic Morbid Obesity [E66.01] 01/23/2010 Lumbar Disc Disorder [M51.9] 02/16/2010 Routine general medical examination at a [facility]*12/06/2012 02/22/2014 Anxiety [F41.9] 06/07/2014 Type 2 [...] 09/04/2022 11 (more content not included)... Normal [facility] Shoulder min 2 Viewson 03-[address] [facility] Imaging Services [address] [place], [place] [address] Shoulder min 2 Views MR#: [id number] Acct: [id number] Name: TORI GRAY Rep #: [id number] : 1980 F 44 From: Jackson Laureano i, MD PCP: Dr. Ivette Grimes MD Status: REG CLI Study: Shoulder min 2 Views Date of Exam: 03/11/25 Exam# [id number] Ordering Dr: Brett Quiroga MD PROCEDURE: SHOULDER MIN 2 VIEWS 03/11/2025 REASON FOR EXAM: PAIN TECHNIQUE: Five views of the left shoulder COMPARISON: Left shoulder x-ray dated 05/03/2021. FINDINGS: The left shoulder is in anatomic alignment. There is no fracture or dislocation seen. No significant osteoarthritis is seen. RAD/Shoulder min 2 Views IMPRESSION: Unremarkable left shoulder series. Reading Location: [id number] CC: Dr. Brett Quiroga MD; Dr. Ivette Grimes MD Senior Wealth Advisor: Signed Normal [facility] Chiropractic Reporton 2024 Chiropractic Report [facility] [address] [place] [address] OFFICE VISIT Date of Service: 03/09/25 MR#: [id number] Acct: [id number] Name: TORI GRAY Rep #: [id number] : 1980 Provider: CONCEPCIÓN Montgomery Age/Sex: 44/F Location: [facility] Status: Signed Intake Vital Signs 11/11/24 05:55 [...] #30 ea 03/09/25 Rx packet [facility] Medical History Abnormal ECG Prolonged Q-T interval [...] under her sh (more content not included)... [facility]20[facility] ---- ISAACTORI Ivan ([id number]) 1980 F Date Time Provider Department 03/04/25 [...] tablet by mouth once daily. - Ipratropium [place] (ATROVENT) 21 mcg (0.03 %) nasal spray [...] Each by INTRAUTERINE route as directed. - [place]-3 Fatty Acids (FISH OIL) 500 mg cap Take 1 capsule by mouth once daily. - blood sugar diagnostic (BLOOD GLUCOSE TEST) test strip Test blood sugar(s) 1 times daily. Dx: Type 2 DM - Controlled E11.9 Insulin: Yes - Lancets lancets Test blood sugar(s) 1 times daily. Dx: Type 2 DM - Controlled E11.9 Insulin: No - Opdgcsbk-Lk-Sck-Fe- FA tab Take 1 tablet by mouth [...] 01/23/2010 Routine general medical examination at a [facility]*01/23/2010 12/06/2012 Class: Chronic Routine gynecological examination [Z01.419] 01/23/2010 02/22/2014 Class: Chronic Morbid Obesity [E66.01] 01/23/2010 Lumbar Disc Disorder [M51.9] 02/16/2010 Rout[facility] general medical examination at [facility]*12/06/2012 02/22/2014 Anxiety [F41.9] 06/07/2014 Type 2 [...] headache [G43. (more content not included)... Normal [facility] Hany 02-24-2025 [facility] Telephone ([facility] ---- ISAACTORI ([id number]) 1980 F Date Time Provider Department 02/24/25 [...] tablet by mouth once daily. - Ipratropium [place] (ATROVENT) 21 mcg (0.03 %) nasal spray [...] Each by INTRAUTERINE route as directed. - [place]-3 Fatty Acids (FISH OIL) 500 mg cap Take 1 capsule by mouth once daily. - blood sugar diagnostic (BLOOD GLUCOSE TEST) test strip Test blood sugar(s) 1 times daily. Dx: Type 2 DM - Controlled E11.9 Insulin: Yes - Lancets lancets Test blood sugar(s) 1 times daily. Dx: Type 2 DM - Controlled E11.9 Insulin: No - Wuwcabof-To-Zwe-Fe- FA tab Take 1 tablet by mouth [...] 02/16/2010 Routine general medical examination at a [facility]*12/06/2012 02/22/2014 Anxiety [F41.9] 06/07/2014 Type 2 [...] 09/04/2022 Low (more content not included)... Normal [facility] Inital Evaluation (1) - PTon 02-08-2025 Inital Evaluation (1) - PT [facility] Physical Therapy [facility] [address] [place] [address] / REHABILITATION SERVICES INITIAL EVALUATION MR#: [id number] Acct: [id number] Name: TORI GRAY Rep #: [id number] : 1980 44 From: Santana Ruano DPT Referring Dr.: Dr. Ivette Grimes MD Status: REG RCR Insurance: [employer]/[facility] SELF PAY INSURANCE Patient's Visit Information [...] to be FAXED BACK to us at [phone] for Medicare purposes. For Medicare only, by signing this I certify the plan of care. Please let me know if there are questions or concerns regarding this plan of care. Physician Signature: __Date: 02/08/25 1434 CC: Dr. Ivette Grimes MD CLS Signed Normal [facility] Chiropractic Reporton 2024 Chiropractic Report [facility] [address] [place] [address] OFFICE VISIT Date of Service: 02/04/25 MR#: [id number] Acct: [id number] Name: TORI GRAY Rep #: [id number] : 1980 Provider: CONCEPCIÓN Montgomery Age/Sex: 44/F Location: [facility] Status: Signed Intake Vital Signs 11/11/24 [...] #30 ea 02/04/25 Rx packet [facility] Medical History Abnormal ECG Prolonged Q-T interval [...] adjustment. 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 Normal [facility] Anion gap in Serum or Plasma Ordered By: Ivette Grimes on 01-28-2025 Anion gap [Moles/Vol] 11 mmol/L 03-18 [facility] BUN/creatinine ratioOrdered By: Ivette Grimes on 01-28-2025 Urea nitrogen/Creatinine [Mass ratio] 18.5 mg/mg 08-23 [facility] Basic Metabolic Profile (BMP )on 01-28-2025 BUN/CRE 18.5 RATIO Normal 08-23 [facility] Comment on above: Performed By: #### L 501.080 #### [facility] [address] [place], [address] Calcium [Mass/Vol] 9.0 mg/dL Normal 7.6-11.0 [facility] Comment on above: Performed By: #### L 501.080 #### [facility] [address] [place], [address] Chloride [Moles/Vol] 105 mmol/L Normal 98-108 [facility] Comment on above: Performed By: #### L 501.080 #### [facility] [address] [place], [address] CO2 [Moles/Vol] 21.2 mmol/L Normal 21.0-32.0 [facility] Comment on above: Performed By: #### L 501.080 #### [facility] [address] [place], [address] Creatinine [Mass/Vol] 0.77 mg/dL Normal 0.70-1.20 [facility] Comment on above: Performed By: #### L 501.080 #### [facility] [address] [place], [address] GAP 11 Normal 5-15 [facility] Comment on above: Performed By: #### L 501.080 #### [facility] [address] [place], [address] GFR/1.73 sq M.predicted among non-blacks MDRD (S/P/Bld) [Vol rate/Area] 98 mL/min/{1.73_m2} Normal >60 [facility] Comment on above: Result Comment: mL/m in/1.73m2 CKD-EPI Creatinine Equation (2020) Performed By: #### L 501.080 #### [facility] [address] [place], [address] Glucose [Mass/Vol] 185 mg/dL High 70-99 [facility] Comment on above: Performed By: #### L 501.080 #### [facility] [address] [place], [address] Potassium [Moles/Vol] 4.2 mmol/L Normal 3.3-5.1 [facility] Comment on above: Result Comment: Hemo lysis present, Results??could be affected. ?? Performed By: #### L 501.080 #### [facility] [address] [place], [place], [address] Sodium [Moles/Vol] 137 mmol/L Normal 133-145 [facility] Comment on above: Performed By: #### L 501.080 #### [facility] [address] [place], [place], [address] Urea nitrogen [Mass/Vol] 14 mg/dL Normal 4-19 [facility] Comment on above: Performed By: #### L 501.080 #### [facility] [address] [place], [place], [address] [facility] 01-28-2025 [facility] Telephone ([facility]) ---- TORI GRAY ([id number]) 1980 F Date Time Provider Department 01/28/25 IVETTE GRIMES [facility] During your visit today, we recorded the following information about you: Krystle Barnett, RN 01/28/2025 4:54 PM Signed Prior Authorization Documentation Prior authorization requested for the following medication: Medication: Ozempic 1 mg (all though PA done in Aug 2024 and approved until Aug 2025 this needs PA due to dose change). Provider: [employer] Name: [employer] Phone number: [phone] Patient ID number: [id number] Pharmacy Name: [facility] Pharm[facility] Telephone number: [phone] Evon Philippe LPN 01/28/2025 4:56 PM Signed Electronic PA requested. Jose Martin PRINCESS Barnard 01/28/2025 4:58 PM Signed Unable to complete electronically. Will try on covermymeds Evon Philippe LPN 01/29/2025 9:07 AM Signed [employer] RESPONSE. [employer] does not handle this review. Please visit [email or web address] to start a prior authorization or fax information to [phone]. Please include all supporting chart notes. You may contact [employer] at [phone]. WILL FAX PA REQUEST TO NUMBER PROVIDED. 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 Allergies As of Date: 01/28/2025 Noted Allergy [...] tablet by mouth once daily. - Ipratropium [place] (ATROVENT) 21 mcg (0.03 %) nasal spray [...] Each by INTRAUTERINE route as directed. - [place]-3 Fatty Acids (FISH OIL) 500 mg cap Take 1 capsule by mouth once daily. - blood sugar diagnostic (BLOOD GLUCOSE TEST) test strip Test blood sugar(s) 1 times daily. Dx: Type 2 DM - Controlled E11.9 Insulin: Yes - Lancets lancets Test blood sugar(s) 1 times daily. Dx: Type 2 DM - Controlled E11.9 Insulin: No - Pcavaqxj-Ug-Udh-Fe- FA tab Take 1 tablet by mouth [...] DERMATOFIBROMA///BE N (more content not included)... [facility] ---- TORI GRAY ([id number]) 1980 F Date Time Provider Department 01/28/25 IVETTE GRIMES [facility] During your visit today, we recorded the following information about you: Dennise Robles MA 01/28/2025 8:45 AM Signed Scan on 01/28/2025 8:29 AM by ProviderSherry PA-C: BMP Scan on 01/28/2025 8:17 AM by Sherry Mccallum PA-C: HGB A1C Allergies As of Date: [...] tablet by mouth once daily. - Ipratropium [place] (ATROVENT) 21 mcg (0.03 %) nasal spray [...] Each by INTRAUTERINE route as directed. - [place]-3 Fatty Acids (FISH OIL) 500 mg cap Take 1 capsule by mouth once daily. - blood sugar diagnostic (BLOOD GLUCOSE TEST) test strip Test blood sugar(s) 1 times daily. Dx: Type 2 DM - Controlled E11.9 Insulin: Yes - Lancets lancets Test blood sugar(s) 1 times daily. Dx: Type 2 DM - Controlled E11.9 Insulin: No - Artvnwuh-Se-Bro-Fe- FA tab Take 1 tablet by mouth [...] 05/06/2009 01/23/2010 Routine general medical examination at [facility]*01/23/2010 12/06/2012 Class: Chronic Routine gynecological examination [Z01.419] 01/23/2010 02/22/2014 Class: Chronic Morbid Obesity [E66.01] 01/23/2010 Lumbar Disc Disorder [M51.9] 02/16/2010 Routine general medical examination at [facility]*12/06/2012 02/22/2014 Anxiety [F41.9] 06/07/2014 Type 2 [...] R19.7] 11/22/202109/04 (more content not included)... Normal [facility] Carbon dioxide, total [Moles /volume] in Central venous bloodOrdered By: Ivette Grimes on 01-28-2025 CO2 [Moles/Vol] 21.2 mmol/L 21.0-32.0 [facility] Chloride assayOrdered By: Regina Grimes on 01-28-2025 Chloride [Moles/Vol] 105 mmol/L 98-108 [facility] GFR/1.73 sq M.predicted jamari g non-blacks MDRD (S/P/Bld) [Vol rate/Area]Ordered By: Ivette Grimes on 01-28-2025 Estimated GFR (MDRD) Non-Af Amer 98 >60 [facility] Comment on above: mL/min/1.73m2 CKD-EP I Creatinine Equation (2020) Glomerular filtration rate ( GFR) estimation/1.73 sq m using serum, plasma, or whole bOrdered By: Ivette Grimes on 01-28-2025 GFR/1.73 sq M.predicted among non-blacks MDRD (S/P/Bld) [Vol rate/Area] 98 mL/min/{1.73_m2} >60 [facility] Comment on above: mL/min/1.73m2 CKD-EP I Creatinine Equation (2020) HBA1C (OUTSIDE)on 01-28-2025 [facility] Hemoglobin A1c percentageon 01-28-2025 HbA1c (Bld) [Mass fraction] 6.6 % Normal <=5.6 [facility] Comment on above: Performed By: #### L 501.080 #### [facility] [address] [place], [place], [address] Potassium (Unsp spec) [Mass/ Vol]Ordered By: Ivette Grimes on 01-28-2025 Potassium [Moles/Vol] 4.2 mmol/L 3.3-5.1 [facility] Comment on above: Hemolysis present, R esults could be affected. Potassium measurement (mass/ volume)Ordered By: Ivette Grimes on 01-28-2025 Potassium (Unsp spec) [Mass/Vol] 4.2 mmol/L 3.3-5.1 [facility] Comment on above: Hemolysis present, R esults could be affected. Serum creatinine measurement (mass/volume)Ordered By: Ivette Grimes on 01-28-2025 Creatinine [Mass/Vol] 0.77 mg/dL 0.70-1.20 [facility] Serum glucose measurement (m ass/volume)Ordered By: Ivette Grimes on 01-28-2025 Glucose [Mass/Vol] 185 mg/dL High 70-99 [facility] Serum or plasma calcium sharron urement (mass/volume)Ordered By: Ivette Grimes on 01-28-2025 Calcium [Mass/Vol] 9.0 mg/dL 7.6-11.0 [facility] Serum or plasma urea nitroge n measurement (mass/volume)Ordered By: Ivette Grimes on 01-28-2025 Urea nitrogen [Mass/Vol] 14 mg/dL 4-19 [facility] Sodium levelOrdered By: Reji Griems on 01-28-2025 Sodium [Moles/Vol] 137 mmol/L 133-145 [facility] CNOVon 01-22-2025 CNOV Office Visit (FAMPWS) ---- TORI GRAY ([id number]) 1980 F Date Time Provider Department 01/22/25 [...] 1 tablet by mouth once daily. Ipratropium [place] (ATROVENT) 21 mcg (0.03 %) nasal spray [...] 1 Each by INTRAUTERINE route as directed. [place]-3 Fatty Acids (FISH OIL) 500 mg cap Take 1 capsule by mouth once daily. blood sugar diagnostic (BLOOD GLUCOSE TEST) test strip Test blood sugar(s) 1 times daily. Dx: Type 2 DM - Controlled E11.9 Insulin: Yes Lancets lancets Test blood sugar(s) 1 times daily. Dx: Type 2 DM - Controlled E11.9 Insulin: No Xjdrlqlx-Ia-Zay-Fe- FA tab Take 1 tablet by mouth [...] Age of Onset Alcohol/Drug Mother Heart Father [place] Cancer Father PANCREATIC CANCER Diabetes Father Coronary [...] Controlled ( (more content not included)... [facility] ---- TORI GRAY ([id number]) 1980 F Date Time Provider Department 12/21/24 JENNI MARTÍNEZ [facility] During your visit today, we recorded the following information about you: Jenni Martínez APRN.CNP 12/21/2024 2:36 PM Signed Can you please call the patient and let her know that I apologize for not getting back to her sooner. I had to go on and print off her test results from the hospital. Labs were relatively stable. Potassium was normal. Chest x-ray was normal as well. Can you please ask if her symptoms improved with the zpack? STEVE Lara Barbara, LPN 12/21/2024 3:20 PM Signed Patient notified [...] tablet by mouth once daily. - Ipratropium [place] (ATROVENT) 21 mcg (0.03 %) nasal spray [...] Each by INTRAUTERINE route as directed. - [place]-3 Fatty Acids (FISH OIL) 500 mg cap Take 1 capsule by mouth once daily. - blood sugar diagnostic (BLOOD GLUCOSE TEST) test strip Test blood sugar(s) 1 times daily. Dx: Type 2 DM - Controlled E11.9 Insulin: Yes - Lancets lancets Test blood sugar(s) 1 times daily. Dx: Type 2 DM - Controlled E11.9 Insulin: No - Pvvxduxh-Do-Jps-Fe- FA tab Take 1 tablet by mouth [...] 01/23/2010 Routine general medical examination at a [facility]*01/23/2010 12/06/2012 Class: Chronic Routine gynecological examination [Z01.419] 01/23/2010 02/22/2014 Class: Chronic Morbid Obesity [E66.01] 01/23/2010 Lumbar Disc Disorder [M51.9] 02/16/2010 Routine general medical examination at [facility]*12/06/2012 02/22/2014 Anxiety [F41.9] 06/07/2014 Type 2 diabetes mellitus with microalbuminuria,*0 07/04/2018 Fatty liver [K76.0] 07/21/2018 08/05/2024 LETITIA (obstructive sleep apnea) [G47.33] 07/21/2018 Microalbuminuria [R80.9] 09/30/2018 09/04/2022 Obesity, Class III, BMI >= 40 [E66.01] 11/26/2019 09/04/2022 (more content not included)... Normal [facility] Albumin to globulin ratioOrd ered By: Jenni Martínez on 12-11-2024 Albumin/Globulin [Mass ratio] 0.8 {ratio} Low 0.9-2.4 [facility] Bilirubin, totalOrdered By: Jenni Martínez on 12-11-2024 Bilirubin [Mass/Vol] 0.80 mg/dL 0.20-1.00 [facility] Comment on above: For patients on eltr ombopag therapy, use of Dimension [place] TBIL is not recommended. Blood urea nitrogen (BUN)/cr eatinine ratioOrdered By: Jenni Martínez on 12-11-2024 Urea nitrogen/Creatinine [Mass ratio] 11.5 mg/mg 10-20 [facility] CNOVon 12-11-2024 CNOV Office Visit (FAMPWS) ---- TORI GRAY ([id number]) 1980 F Date Time Provider Department 12/11/24 11:00 AM JENNI MARTÍNEZ During your visit today, we recorded the following information about you: Temperature Pulse Respiration Blood pressure 97.8 degrees 72/minute 16/minute 138/74 Weight 125.7 kg Jenni Martínez APRN.PROJECTION ENGINEER 12/11/2024 12:26 PM Signed This is a [...] 1 tablet by mouth once daily. Ipratropium [place] (ATROVENT) 21 mcg (0.03 %) nasal spray [...] 1 Each by INTRAUTERINE route as directed. [place]-3 Fatty Acids (FISH OIL) 500 mg cap Take 1 capsule by mouth once daily. blood sugar diagnostic (BLOOD GLUCOSE TEST) test strip Test blood sugar(s) 1 times daily. Dx: Type 2 DM - Controlled E11.9 Insulin: Yes Lancets lancets Test blood sugar(s) 1 times daily. Dx: Type 2 DM - Controlled E11.9 Insulin: No Ftzesrkz-On-Pes-Fe- FA tab Take 1 tablet by mouth once daily. No current facility-administer ed medications for this visit. FAMILY HISTORY Problem Relation Age of Onset Alcohol/Drug Mother Heart Father [place] Cancer Father PANCREATIC CANCER Diabetes Father Coronary [...] NECK: Negat (more content not included)... Normal [facility]20[facility] ---- TORI GRAY ([id number]) 1980 F Date Time Provider Department 12/11/24 IVETTE GRIMES [facility] During your visit today, we recorded the following information about you: Brittney Meredith RN 12/11/2024 8:23 AM Signed Patient calling to make appt for evaluation of respiratory sx's that began approx 4 weeks ago. Pt states she feels she may have bronchitis or pneumonia. States she was at [facility] ER last month due to dizziness, [...] tablet by mouth once daily. - Ipratropium [place] (ATROVENT) 21 mcg (0.03 %) nasal spray [...] Each by INTRAUTERINE route as directed. - [place]-3 Fatty Acids (FISH OIL) 500 mg cap Take 1 capsule by mouth once daily. - blood sugar diagnostic (BLOOD GLUCOSE TEST) test strip Test blood sugar(s) 1 times daily. Dx: Type 2 DM - Controlled E11.9 Insulin: Yes - Lancets lancets Test blood sugar(s) 1 times daily. Dx: Type 2 DM - Controlled E11.9 Insulin: No - Bhmnekir-Ue-Vat-Fe- FA tab Take 1 tablet by mouth [...] 05/06/2009 01/23/2010 Routine general medical examination at [facility]*01/23/2010 12/06/2012 Class: Chronic Routine gynecological examination [Z01.419] 01/23/2010 02/22/2014 Class: Chronic Morbid Obesity [E66.01] 01/23/2010 Lumbar Disc Disorder [M51.9] 02/16/2010 Routine general medical examination at [facility]*12/06/2012 02/22/2014 Anxiety [F41.9] 06/07/2014 Type 2 diabetes mellitus with microalbuminuria,*0 07/04/2018 Fatty liver [K76.0] 07/21/2018 08/05/20 (more content not included)... Normal [facility]AY[facility]ER Telephone ([facility]) ---- TORI GRAY ([id number]) 1980 F Date Time Provider Department 12/11/24 JENNI MARTÍNEZ During your visit today, we recorded the following information about you: Jenni Martínez APRN.GABRIELA 12/11/2024 2:18 PM Signed Can you please call the patient and let her know that I am still waiting for x-ray results from [facility]. I went ahead and sent in [...] tablet by mouth once daily. - Ipratropium [place] (ATROVENT) 21 mcg (0.03 %) nasal spray [...] Each by INTRAUTERINE route as directed. - [place]-3 Fatty Acids (FISH OIL) 500 mg cap Take 1 capsule by mouth once daily. - blood sugar diagnostic (BLOOD GLUCOSE TEST) test strip Test blood sugar(s) 1 times daily. Dx: Type 2 DM - Controlled E11.9 Insulin: Yes - Lancets lancets Test blood sugar(s) 1 times daily. Dx: Type 2 DM - Controlled E11.9 Insulin: No - Hbmiyaqh-Hl-Ojm-Fe- FA tab Take 1 tablet by mouth [...] SACROILIITIS [ (more content not included)... Normal [facility] Carbon dioxide measurementOr dered By: Jenni Martínez on 12-11-2024 CO2 [Moles/Vol] 23.0 mmol/L 21.0-32.0 [facility] Chest PA and Lateralon 12-11 Chest PA and Lateral [facility] Imaging Services [address] [place] [id number] Chest PA and Lateral MR#: [id number] Acct: [id number] Name: TORI GRAY Rep #: [id number] : 1980 F 44 From: Sammy Gay MD PCP: Dr. Ivette Grimes MD Status: REG CLI Study: Chest PA and Lateral Date of Exam: 12/11/24 Exam# [id number] Ordering Dr: Jenni Martínez DRAWER HARDWARE WORKER-C EXAM: XR Chest, 2 Views CLINICAL INDICATION: TECHNIQUE: Frontal and lateral views of the chest. COMPARISON: No relevant prior studies available. FINDINGS: LUNGS AND PLEURAL SPACES: Unremarkable. No consolidation. No pneumothorax. HEART: Unremarkable. No cardiomegaly. MEDIASTINUM: Unremarkable. Normal mediastinal contour. BONES/JOINTS: Unremarkable. No acute fracture. RAD/Chest PA and Lateral IMPRESSION: No acute cardiopulmonary process. Reading [facility] CC: FADUMO Martínez; Dr. Ivette Grimes MD Senior Wealth Advisor: Signed Normal [facility] Chloride measurementOrdered By: Jenni Martínez on 12-11-2024 Chloride [Moles/Vol] 107 mmol/L 98-107 [facility] Comprehensive Metabolic Prof ilon 12-11-2024 Albumin [Mass/Vol] 3.7 g/dL Normal 3.2-5.0 [facility] Comment on above: Performed By: #### L 100.0100, L503.6005, L500.4050 #### [facility] [address] [place], [address] Albumin/Globulin [Mass ratio] 0.8 {ratio} Low 0.9-2.4 [facility] Comment on above: Performed By: #### L 100.0100, L503.6005, L500.4050 #### [facility] [address] [place], [address] ALK P 84 U/L Normal 45-117 [facility] Comment on above: Performed By: #### L 100.0100, L503.6005, L500.4050 #### [facility] [address] [place], [address] ALT [Catalytic activity/Vol] 53 U/L Normal 13-56 [facility] Comment on above: Performed By: #### L 100.0100, L503.6005, L500.4050 #### [facility] [address] [place], [address] AST [Catalytic activity/Vol] 40 U/L High 15-37 [facility] Comment on above: Performed By: #### L 100.0100, L503.6005, L500.4050 #### [facility] [address] [place], [address] Bilirubin [Mass/Vol] 0.80 mg/dL Normal 0.20-1.00 [facility] Comment on above: Result Comment: For patients on eltrombopag therapy, use of Dimension [place] TBIL is not recommended. Performed By: #### L 100.0100, L503.6005, L500.4050 #### [facility] [address] [place], [address] BUN/CRE 11.5 RATIO Normal 10-20 [facility] Comment on above: Performed By: #### L 100.0100, L503.6005, L500.4050 #### [facility] [address] [place], [address] CA,Total 8.8 mg/dL Normal 8.5-10.1 [facility] Comment on above: Performed By: #### L 100.0100, L503.6005, L500.4050 #### [facility] [address] [place], [address] Chloride [Moles/Vol] 107 mmol/L Normal 98-107 [facility] Comment on above: Performed By: #### L 100.0100, L503.6005, L500.4050 #### [facility] [address] [place], [address] CO2 [Moles/Vol] 23.0 mmol/L Normal 21.0-32.0 [facility] Comment on above: Performed By: #### L 100.0100, L503.6005, L500.4050 #### [facility] [address] [place], [address] Creatinine [Mass/Vol] 0.78 mg/dL Normal 0.55-1.02 [facility] Comment on above: Result Comment: The validity of the calculated GFR GFRAA in patients over 70 years has not been determined. Clinical correlation is essential. Performed By: #### L 100.0100, L503.6005, L500.4050 #### [facility] [address] [place], [address] EST GFR - AA 104 mL/min Normal >60 [facility] Comment on above: Result Comment: Afri can [place]er GFR Calc Performed By: #### L 100.0100, L503.6005, L500.4050 #### [facility] [address] [place], [address] GAP 7 Normal 5-15 [facility] Comment on above: Performed By: #### L 100.0100, L503.6005, L500.4050 #### [facility] [address] [place], [address] GFR/1.73 sq M.predicted among non-blacks MDRD (S/P/Bld) [Vol rate/Area] 86 mL/min/{1.73_m2} Normal >60 [facility] Comment on above: Result Comment: Non- GFR Calc Performed By: #### L 100.0100, L503.6005, L500.4050 #### [facility] [address] [place], [address] Globulin (S) [Mass/Vol] 4.5 g/dL High 2.2-4.2 [facility] Comment on above: Performed By: #### L 100.0100, L503.6005, L500.4050 #### [facility] [address] [place], [address] Glucose [Mass/Vol] 109 mg/dL High 74-106 [facility] Comment on above: Result Comment: Fast ing Glucose result from 100 to 125 mg/dL suggests IMPAIRED HOMEOSTASIS per A.D.A. criteria. Performed By: #### L 100.0100, L503.6005, L500.4050 #### [facility] [address] [place], [address] Potassium [Moles/Vol] 3.9 mmol/L Normal 3.5-5.1 [facility] Comment on above: Performed By: #### L 100.0100, L503.6005, L500.4050 #### [facility] [address] [place], [address] Sodium [Moles/Vol] 137 mmol/L Normal 136-145 [facility] Comment on above: Performed By: #### L 100.0100, L503.6005, L500.4050 #### [facility] [address] [place], [address] T PROT 8.2 g/dL Normal 6.4-8.2 [facility] Comment on above: Performed By: #### L 100.0100, L503.6005, L500.4050 #### [facility] [address] [place], [address] Urea nitrogen [Mass/Vol] 9 mg/dL Normal 7-18 [facility] Comment on above: Performed By: #### L 100.0100, L503.6005, L500.4050 #### [facility] [address] [place], [address] Estimated glomerular filtrat ion rate (GFR) AmericanOrdered By: Jenni Martínez on 12-11-2024 Estimated GFR (MDRD) Amer 104 mL/min >60 [facility] Comment on above: GFR Calc Glomerular filtration rate ( GFR) estimationOrdered By: Jenni Martínez on 12-11-2024 Estimated GFR (MDRD) Non-Af Amer 86 mL/min >60 [facility] Comment on above: Non- GFR Calc GFR/1.73 sq M.predicted among non-blacks MDRD (S/P/Bld) [Vol rate/Area] 86 mL/min/{1.73_m2} >60 [facility] Comment on above: Non- GFR Calc Glucose measurementOrdered B y: Jenni Martínez on 12-11-2024 Glucose [Mass/Vol] 109 mg/dL High 74-106 [facility] Comment on above: Fasting Glucose resu lt from 100 to 125 mg/dL suggests IMPAIRED HOMEOSTASIS per A.D.A. criteria. Laboratory - Chemistry and C hemistry - challengeOrdered By: Jenni Martínez on 12-11-2024 AST [Catalytic activity/Vol] 40 U/L High 15-37 [facility] Potassium measurementOrdered By: Jenni Martínez on 12-11-2024 Potassium [Moles/Vol] 3.9 mmol/L 3.5-5.1 [facility] Serum anion gap measurementO rdered By: Jenni Martínez on 12-11-2024 Anion gap [Moles/Vol] 7 mmol/L 5-15 [facility] Serum globulin measurementOr dered By: Jenni Martínez on 12-11-2024 Globulin (S) [Mass/Vol] 4.5 g/dL High 2.2-4.2 [facility] Serum or plasma alanine arizmendi otransferase (ALT) measurementOrdered By: Jenni Martínez on 12-11-2024 ALT [Catalytic activity/Vol] 53 U/L 13-56 [facility] Serum or plasma albumin sharron urement (mass/volume)Ordered By: Jenni Martínez on 12-11-2024 Albumin [Mass/Vol] 3.7 g/dL 3.2-5.0 [facility] Serum or plasma alkaline toyin sphatase measurementOrdered By: Jenni Martínez on 12-11-2024 ALP [Catalytic activity/Vol] 84 U/L 45-117 [facility] Serum or plasma calcium sharron urement (mass/volume)Ordered By: Jenni Martínez on 12-11-2024 Calcium [Mass/Vol] 8.8 mg/dL 8.5-10.1 [facility] Serum or plasma creatinine m easurement (mass/volume)Ordered By: Jenni Martínez on 12-11-2024 Creatinine [Mass/Vol] 0.78 mg/dL 0.55-1.02 [facility] Comment on above: The validity of the calculated GFR & GFRAA in patients over 70 years has not been determined. Clinical correlation is essential. Serum or plasma urea nitroge n measurement (mass/volume)Ordered By: Jenni Martínez on 12-11-2024 Urea nitrogen [Mass/Vol] 9 mg/dL 7-18 [facility] Sodium levelOrdered By: Ricco Martínez on 12-11-2024 Sodium [Moles/Vol] 137 mmol/L 136-145 [facility] Total proteinOrdered By: John Martínez on 12-11-2024 Protein [Mass/Vol] 8.2 g/dL 6.4-8.2 [facility] Urine Cultureon 11-12-2024 URC Mixed Gram Pos Gram Neg Org Pratt Count 11,000-25,000 [facility] Mixed contaminants. Submit a new specimen if indicated. Normal [facility] Comment on above: Performed By: #### M 100.4416 ####[facility] [id number] [facility] [place], [address] 12 Lead EKGon 11-11-[address] [facility] [address] [place] [address] 12 Lead EKG 11/11/24 0649 MR#: [id number] Acct: [id number] Name: TORI GRAY Rep #: [id number] : 1980 44 From: Jackson Keenan MD [...] abnormality Abnormal ECG Confirmed by Jackson Keenan ([id number]), editorial intern PRISCILA FERRERA ([id number]) on 11/12/2024 10:16:52 AM Referred By: Isabel Confirmed By: Jackson Keenan 11/12/24 1016 Date Jackson Keenan MD CC: Dr. Buddy Hall DO; Dr. Ivette Grimes MD Signed Normal [facility] Absolute neutrophil countOrd ered By: Buddy Hall on 11-11-2024 Neutrophils (Bld) [#/Vol] 6.5 10*3/uL 2.0-7.7 [facility] Albumin to globulin ratioOrd ered By: Buddy Hall on 11-11-2024 Albumin/Globulin [Mass ratio] 0.6 {ratio} Low 0.9-2.4 [facility] Bacteria LM.HPF (Urine sed) [#/Area]Ordered By: Buddy Hall on 11-11-2024 Urine Bacteria RARE /hpf None Seen [facility] Basophil percentageOrdered B y: Buddy Hall on 11-11-2024 Basophils/100 WBC (Bld) 0.4 % 0-1 [facility] Bilirubin Test strip Ql (U)O rdered By: Buddy Hall on 11-11-2024 Bilirubin Ql (U) Negative Negative [facility] Bilirubin, totalOrdered By: Buddy Hall on 11-11-2024 Bilirubin [Mass/Vol] 0.90 mg/dL 0.20-1.00 [facility] Comment on above: For patients on eltr ombopag therapy, use of Dimension [place] TBIL is not recommended. Blood urea nitrogen (BUN)/cr eatinine ratioOrdered By: Buddy Hall on 11-11-2024 Urea nitrogen/Creatinine [Mass ratio] 9.8 mg/mg Low 10-20 [facility] CBC W/Diff, Automatedon Absolute Lymph 0.72 X10 3/uL Low 0.83-4.51 [facility] Comment on above: Performed By: #### L 100.0100, L503.6005, L500.4050 #### [facility] [address] [place], [address] Absolute Neut 6.5 X10 3/uL Normal 2.0-7.7 [facility] Comment on above: Performed By: #### L 100.0100, L503.6005, L500.4050 #### [facility] [address] [place], [address] Basophils/100 WBC (Bld) 0.4 % Normal 0-1 [facility] Comment on above: Performed By: #### L 100.0100, L503.6005, L500.4050 #### [facility] [address] [place], [address] Eosinophils/100 WBC (Bld) 1.2 % Normal 0-5 [facility] Comment on above: Performed By: #### L 100.0100, L503.6005, L500.4050 #### [facility] [address] [place], [address] Erythrocyte distribution width (RBC) [Ratio] 13.7 % Normal 11.6-14.6 [facility] Comment on above: Performed By: #### L 100.0100, L503.6005, L500.4050 #### [facility] [address] [place], [address] Hematocrit (Bld) [Volume fraction] 33.1 % Low 37-47 [facility] Comment on above: Performed By: #### L 100.0100, L503.6005, L500.4050 #### [facility] [address] [place], [address] Hemoglobin (Bld) [Mass/Vol] 11.4 g/dL Low 12.0-15.0 [facility] Comment on above: Performed By: #### L 100.0100, L503.6005, L500.4050 #### [facility] [address] [place], [address] IG% 1.200 High 0.0-0.9 [facility] Comment on above: Result Comment: IG% - Immature Granulocytes (promyelocytes, myelocytes and metamyelocytes) > 1% indicates that a LEFT SHIFT is Present. Performed By: #### L 100.0100, L503.6005, L500.4050 #### [facility] [address] [place], [address] Lymphocytes/100 WBC (Bld) 9.2 % Low 19-41 [facility] Comment on above: Performed By: #### L 100.0100, L503.6005, L500.4050 #### [facility] [address] [place], [address] MCH (RBC) [Entitic mass] 31.8 pg Normal 27.0-32.0 [facility] Comment on above: Performed By: #### L 100.0100, L503.6005, L500.4050 #### [facility] [address] [place], [address] MCHC (RBC) [Mass/Vol] 34.4 g/dL Normal 32-36 [facility] Comment on above: Performed By: #### L 100.0100, L503.6005, L500.4050 #### [facility] [address] [place], [address] MCV (RBC) [Entitic vol] 92.5 fL Normal 81-99 [facility] Comment on above: Performed By: #### L 100.0100, L503.6005, L500.4050 #### [facility] [address] [place], [address] Monocytes/100 WBC (Bld) 4.2 % Normal 0-10 [facility] Comment on above: Performed By: #### L 100.0100, L503.6005, L500.4050 #### [facility] [address] [place], [address] Neutrophils/100 WBC (Bld) 83.8 % High 47-70 [facility] Comment on above: Performed By: #### L 100.0100, L503.6005, L500.4050 #### [facility] [address] [place], [address] Nucleated RBC (Bld) [#/Vol] 0 10*3/uL Normal 0-5 [facility] Comment on above: Performed By: #### L 100.0100, L503.6005, L500.4050 #### [facility] [address] [place], [address] Platelet mean volume (Bld) [Entitic vol] 9.6 fL Normal 6.2-12.0 [facility] Comment on above: Performed By: #### L 100.0100, L503.6005, L500.4050 #### [facility] [address] [place], [address] Platelets (Bld) [#/Vol] 108 10*3/uL Low 150-450 [facility] Comment on above: Performed By: #### L 100.0100, L503.6005, L500.4050 #### [facility] [address] [place], [address] RBC (Bld) [#/Vol] 3.58 10*6/uL Low 4.2-5.4 [facility] Comment on above: Performed By: #### L 100.0100, L503.6005, L500.4050 #### [facility] [address] [place], [address] RDW SD 46.7 fl High 35.1-43.9 [facility] Comment on above: Performed By: #### L 100.0100, L503.6005, L500.4050 #### [facility] [address] [place], [address] WBC (Bld) [#/Vol] 7.8 10*3/uL Normal 4.4-11.0 [facility] Comment on above: Performed By: #### L 100.0100, L503.6005, L500.4050 #### [facility] [address] [place], [address] Carbon dioxide measurementOr dered By: Buddy Hall on 11-11-2024 CO2 [Moles/Vol] 28.0 mmol/L 21.0-32.0 [facility] Chloride measurementOrdered By: Buddy Hall on 11-11-2024 Chloride [Moles/Vol] 102 mmol/L 98-107 [facility] Comprehensive Metabolic Prof ilon 11-11-2024 Albumin [Mass/Vol] 2.6 g/dL Low 3.2-5.0 [facility] Comment on above: Performed By: #### L 100.0100, L503.6005, L500.4050 #### [facility] [address] [place], [address] Albumin/Globulin [Mass ratio] 0.6 {ratio} Low 0.9-2.4 [facility] Comment on above: Performed By: #### L 100.0100, L503.6005, L500.4050 #### [facility] [address] [place], [address] ALK P 79 U/L Normal 45-117 [facility] Comment on above: Performed By: #### L 100.0100, L503.6005, L500.4050 #### [facility] [address] [place], [address] ALT [Catalytic activity/Vol] 29 U/L Normal 13-56 [facility] Comment on above: Performed By: #### L 100.0100, L503.6005, L500.4050 #### [facility] [address] [place], [address] AST [Catalytic activity/Vol] 16 U/L Normal 15-37 [facility] Comment on above: Performed By: #### L 100.0100, L503.6005, L500.4050 #### [facility] [address] [place], [address] Bilirubin [Mass/Vol] 0.90 mg/dL Normal 0.20-1.00 [facility] Comment on above: Result Comment: For patients on eltrombopag therapy, use of Dimension [place] TBIL is not recommended. Performed By: #### L 100.0100, L503.6005, L500.4050 #### [facility] [address] [place], [address] BUN/CRE 9.8 RATIO Low 10-20 [facility] Comment on above: Performed By: #### L 100.0100, L503.6005, L500.4050 #### [facility] [address] [place], [address] CA,Total 8.2 mg/dL Low 8.5-10.1 [facility] Comment on above: Performed By: #### L 100.0100, L503.6005, L500.4050 #### [facility] [address] [place], [address] Chloride [Moles/Vol] 102 mmol/L Normal 98-107 [facility] Comment on above: Performed By: #### L 100.0100, L503.6005, L500.4050 #### [facility] [address] [place], [address] CO2 [Moles/Vol] 28.0 mmol/L Normal 21.0-32.0 [facility] Comment on above: Performed By: #### L 100.0100, L503.6005, L500.4050 #### [facility] [address] [place], [address] Creatinine [Mass/Vol] 1.12 mg/dL High 0.55-1.02 [facility] Comment on above: Result Comment: The validity of the calculated GFR GFRAA in patients over 70 years has not been determined. Clinical correlation is essential. Performed By: #### L 100.0100, L503.6005, L500.4050 #### [facility] [address] [place], [address] ECRCL 92.31 ml/min Normal [facility] Comment on above: Performed By: #### L 100.0100, L503.6005, L500.4050 #### [facility] [address] [place], [address] EST GFR - AA 69 mL/min Normal >60 [facility] Comment on above: Result Comment: Afri can [place]er GFR Calc Performed By: #### L 100.0100, L503.6005, L500.4050 #### [facility] [address] [place], [address] GAP 6 Normal 5-15 [facility] Comment on above: Performed By: #### L 100.0100, L503.6005, L500.4050 #### [facility] [address] [place], [address] GFR/1.73 sq M.predicted among non-blacks MDRD (S/P/Bld) [Vol rate/Area] 57 mL/min/{1.73_m2} Low >60 [facility] Comment on above: Result Comment: Non- GFR Calc Performed By: #### L 100.0100, L503.6005, L500.4050 #### [facility] [address] [place], [address] Globulin (S) [Mass/Vol] 4.0 g/dL Normal 2.2-4.2 [facility] Comment on above: Performed By: #### L 100.0100, L503.6005, L500.4050 #### [facility] [address] [place], [address] Glucose [Mass/Vol] 233 mg/dL High 74-106 [facility] Comment on above: Result Comment: Gluc ose result greater than or equal to 200 mg/dL suggests DIABETES MELLITUS per A.D.A. criteria. Performed By: #### L 100.0100, L503.6005, L500.4050 #### [facility] [address] [place], [address] Potassium [Moles/Vol] 2.6 mmol/L Invalid Interpretation Code 3.5-5.1 [facility] Comment on above: Result Comment: Crit ical Result(s) Called at: 07:34:02 11/11/2024 by: ESTEFANIA ALANIZ to Ronald Piter. Results read back by same. Performed By: #### L 100.0100, L503.6005, L500.4050 #### [facility] [address] [place], [address] Sodium [Moles/Vol] 135 mmol/L Low 136-145 [facility] Comment on above: Performed By: #### L 100.0100, L503.6005, L500.4050 #### [facility] [address] [place], [address] T PROT 6.6 g/dL Normal 6.4-8.2 [facility] Comment on above: Performed By: #### L 100.0100, L503.6005, L500.4050 #### [facility] [address] [place], [address] Urea nitrogen [Mass/Vol] 11 mg/dL Normal 7-18 [facility] Comment on above: Performed By: #### L 100.0100, L503.6005, L500.4050 #### [facility] [address] [place], [address] Emergency Department Summary on 11-11-2024 Emergency Department Summary [facility] Medical Records Department [address] [place] [address] Emergency Department Summary 11/11/24 MR#: [id number] Acct: [id number] Name: TORI GRAY Rep #: [id number] : 1980 44 From: Buddy Hall DO [...] clarification of this denies any room spinning. [facility] Medical History Abnormal ECG Prolonged Q-T [...] you partic (more content not included)... Normal [facility] Eosinophil percentageOrdered By: Buddy Hall on 11-11-2024 Eosinophils/100 WBC (Bld) 1.2 % 0-5 [facility] Epithelial cells.squamous LM Ql (Urine sed)Ordered By: Buddy Hall on 11-11-2024 Epithelial cells.squamous LM.HPF (Urine sed) [#/Area] 0 /[HPF] 5-10 [facility] Erythrocyte distribution wid th ratioOrdered By: Buddy Hall on 11-11-2024 Erythrocyte distribution width (RBC) [Ratio] 13.7 % 11.6-14.6 [facility] Erythrocyte distribution wid th standard deviationOrdered By: Buddy Hall on 11-11-2024 Erythrocyte distribution width (RBC) [Entitic vol] 46.7 fL High 35.1-43.9 [facility] Estimated glomerular filtrat ion rate (GFR) AmericanOrdered By: Buddy Hall on 11-11-2024 Estimated GFR (MDRD) Amer 69 mL/min >60 [facility] Comment on above: GFR Calc Estimation of creatinine deniz aranceOrdered By: Buddy Hall on 11-11-2024 Estimated Creatinine Clearance Calc 92.31 ml/min [facility] Glomerular filtration rate ( GFR) estimationOrdered By: Buddy Hall on 11-11-2024 Estimated GFR (MDRD) Non-Af Amer 57 mL/min Low >60 [facility] Comment on above: Non- GFR Calc Glucose Ql (U)Ordered By: Smith Hall on 11-11-2024 Urine Glucose (UA) Normal mg/dl Normal [facility] Glucose measurementOrdered B y: Buddy Hall on 11-11-2024 Glucose [Mass/Vol] 233 mg/dL High 74-106 [facility] Comment on above: Glucose result great er than or equal to 200 mg/dLsuggests DIABETES MELLITUS per A.D.A. criteria. Hematocrit Auto (Bld) [Volum e fraction]Ordered By: Buddy Hall on 11-11-2024 Hematocrit (Bld) [Volume fraction] 33.1 % Low 37-47 [facility] Hemoglobin measurementOrdere d By: Buddy Hall on 11-11-2024 Hemoglobin (Bld) [Mass/Vol] 11.4 g/dL Low 12.0-15.0 [facility] Immature granulocytes/100 WB C Auto (Bld)Ordered By: Buddy Hall on 11-11-2024 Immature granulocytes/100 WBC (Bld) 1.200 % High 0.0-0.9 [facility] Comment on above: IG% - Immature Granu locytes (promyelocytes, myelocytes and metamyelocytes) > 1% indicates that a LEFT SHIFT is Present. Influenza virus A and B and SARS-CoV-2 (COVID-19) and Respiratory syncytial virus RNAOrdered By: Buddy Hall on 11-11-2024 SARS-CoV-2 (COVID-19) RNA ALLYSON+probe Ql (Unsp spec) [facility] Ketones Test strip Ql (U)Ord ered By: Buddy Hall on 11-11-2024 Ketones Ql (U) 5 mg/dl High Negative [facility] - Chemistry and C hemistry - challengeOrdered By: Buddy Hall on 11-11-2024 AST [Catalytic activity/Vol] 16 U/L 15-37 [facility] Lymphocytes Auto (Unsp spec) [#/Vol]Ordered By: Buddy Hall on 11-11-2024 Lymphocytes (Bld) [#/Vol] 0.72 10*3/uL Low 0.83-4.51 [facility] Lymphocytes/100 WBC Auto (Un sp spec)Ordered By: Buddy Hall on 11-11-2024 Lymphocytes/100 WBC (Bld) 9.2 % Low 19-41 [facility] M100.678on 11-11-2024 M100.678 Pending SARS-CoV-2 (COVID 19) Negative INFLUENZA A Negative INFLUENZA B Negative RSV PCR Negative Normal [facility] Comment on above: Performed By: #### L 400.0001, M100.678 ####[facility] [id number] [facility] [place], [address] MCV (mean corpuscular volume ) determinationOrdered By: Buddy Hall on 11-11-2024 MCV (RBC) [Entitic vol] 92.5 fL 81-99 [facility] Magnesiumon 11-11-2024 Magnesium [Mass/Vol] 1.7 mg/dL Normal 1.6-2.6 [facility] Comment on above: Performed By: #### L 501.5200 #### [facility] [address] [place], [place], [id number] Magnesium measurementOrdered By: Buddy Hall on 11-11-2024 Magnesium [Mass/Vol] 1.7 mg/dL 1.6-2.6 [facility] Mean corpuscular hemoglobin (MCH) determinationOrdered By: Buddy Hall on 11-11-2024 MCH (RBC) [Entitic mass] 31.8 pg 27.0-32.0 [facility] Mean corpuscular hemoglobin concentration (MCHC) determinationOrdered By: Buddy Hall on 11-11-2024 MCHC (RBC) [Mass/Vol] 34.4 g/dL 32-36 [facility] Mean platelet volume determi nationOrdered By: Buddy Hall on 11-11-2024 Platelet mean volume (Bld) [Entitic vol] 9.6 fL 6.2-12.0 [facility] Microscopic analysis of urin e for red blood cells (RBC)Ordered By: Buddy Hall on 11-11-2024 Urine RBC 0-5 SEEN /hpf 0-5 [facility] Monocyte percentageOrdered B y: Buddy Hall on 11-11-2024 Monocytes/100 WBC (Bld) 4.2 % 0-10 [facility] Mucus LM Ql (Urine sed)Order ed By: Buddy Hall on 11-11-2024 Mucus Ql (Urine sed) 0 SEEN /hpf [facility] Neutrophil percentageOrdered By: Buddy Hall on 11-11-2024 Neutrophils/100 WBC (Bld) 83.8 % High 47-70 [facility] Nitrite Test strip Ql (U)Ord ered By: Buddy Hall on 11-11-2024 Nitrite Ql (U) Negative Negative [facility] Nucleated red blood cell per centageOrdered By: Buddy Hall on 11-11-2024 Nucleated RBC/100 WBC (Bld) [Ratio] 0 % 0-5 [facility] Platelet countOrdered By: Smith Hall on 11-11-2024 Platelets (Bld) [#/Vol] 108 10*3/uL Low 150-450 [facility] Potassium measurementOrdered By: Buddy Hall on 11-11-2024 Potassium [Moles/Vol] 2.6 mmol/L Low 3.5-5.1 [facility] Comment on above: Critical Result(s) C alled at: 07:34:02 11/11/2024 by: ESTEFANIA ALANIZ to Ronald Dumas. Results read back by same. Protein Test strip Ql (U)Ord ered By: Buddy Hall on 11-11-2024 Protein Ql (U) 100 mg/dl High Negative [facility] RBC Auto (Bld) [#/Vol]Ordere d By: Buddy Hall on 11-11-2024 RBC (Bld) [#/Vol] 3.58 10*6/uL Low 4.2-5.4 [facility] Serum anion gap measurementO rdered By: Buddy Hall on 11-11-2024 Anion gap [Moles/Vol] 6 mmol/L 5-15 [facility] Serum globulin measurementOr dered By: Buddy Hall on 11-11-2024 Globulin (S) [Mass/Vol] 4.0 g/dL 2.2-4.2 [facility] Serum or plasma alanine arizmendi otransferase (ALT) measurementOrdered By: Buddy Hall on 11-11-2024 ALT [Catalytic activity/Vol] 29 U/L 13-56 [facility] Serum or plasma albumin sharron urement (mass/volume)Ordered By: Buddy Hall on 11-11-2024 Albumin [Mass/Vol] 2.6 g/dL Low 3.2-5.0 [facility] Serum or plasma alkaline toyin sphatase measurementOrdered By: Buddy Hall on 11-11-2024 ALP [Catalytic activity/Vol] 79 U/L 45-117 [facility] Serum or plasma calcium sharron urement (mass/volume)Ordered By: Buddy Hall on 11-11-2024 Calcium [Mass/Vol] 8.2 mg/dL Low 8.5-10.1 [facility] Serum or plasma creatinine m easurement (mass/volume)Ordered By: Buddy Hall on 11-11-2024 Creatinine [Mass/Vol] 1.12 mg/dL High 0.55-1.02 [facility] Comment on above: The validity of the calculated GFR & GFRAA in patients over 70 years has not been determined. Clinical correlation is essential. Serum or plasma urea nitroge n measurement (mass/volume)Ordered By: Buddy Hall on 11-11-2024 Urea nitrogen [Mass/Vol] 11 mg/dL 7-18 [facility] Sodium levelOrdered By: Ashia Hall on 11-11-2024 Sodium [Moles/Vol] 135 mmol/L Low 136-145 [facility] Total proteinOrdered By: Sim Hall on 11-11-2024 Protein [Mass/Vol] 6.6 g/dL 6.4-8.2 [facility] Urinalysis, Completeon 11-11 BACTERIA RARE Normal None Seen [facility] Comment on above: Order Comment: CLEAN CATCH Performed By: #### L 400.0001, M100.678 ####[facility] [address] [place], [address] EPI,SQUAMOUS 0-5 SEEN Normal 5-10 [facility] Comment on above: Order Comment: CLEAN CATCH Performed By: #### L 400.0001, M100.678 ####[facility] [address] [place], [address] RBC 0-5 SEEN Normal 0-5 [facility] Comment on above: Order Comment: CLEAN CATCH Performed By: #### L 400.0001, M100.678 ####[facility] [address] [place], [address] WBC 10-25 SEEN Normal 0-5 [facility] Comment on above: Order Comment: CLEAN CATCH Performed By: #### L 400.0001, M100.678 ####[facility] [address] [place], [address] Mucus Ql (Urine sed) 0 SEEN Normal [facility] Comment on above: Order Comment: CLEAN CATCH Performed By: #### L 400.0001, M100.678 ####[facility] [address] [place], [address] Urine blood detectionOrdered By: Buddy Hall on 11-11-2024 Urine Occult Blood 150 /ul High Negative [facility] Urine clarityOrdered By: Sim Hall on 11-11-2024 Clarity (U) Sl. Cloudy Clear [facility] Urine color determinationOrd ered By: Buddy Hall on 11-11-2024 Color (U) Yellow Yellow [facility] Urine cultureOrdered By: Sim Hall on 11-11-2024 Bacteria identified Cx Nom (U) Mixed Gram Pos & Gram Neg Org Abnormal [facility] Urine leukocyte esterase det ection by dipstickOrdered By: Buddy Hall on 11-11-2024 Leukocyte esterase Test strip Ql (U) 500 /ul High Negative [facility] Urine pHOrdered By: Buddy samuel on 11-11-2024 pH (U) 6.5 [pH] 5.0 - 8.0 [facility] Urine specific gravity measu rementOrdered By: Buddy Hall on 11-11-2024 Specific gravity (U) [Rel density] 1.010 1.002-1.030 [facility] Urobilinogen Ql (U)Ordered B y: Buddy Hall on 11-11-2024 Urine Urobilinogen Normal mg/dl Normal [facility] White blood cell (WBC) count Ordered By: Buddy Hall on 11-11-2024 WBC (Bld) [#/Vol] 7.8 10*3/uL 4.4-11.0 [facility] White blood cell countOrdere d By: Buddy Hall on 11-11-2024 Urine WBC 10-25 SEEN /hpf 0-5 [facility] Chiropractic Reporton 2023 Chiropractic Report [facility] [address] [place] [address] [id number] OFFICE VISIT Date of Service: 10/19/24 MR#: [id number] Acct: [id number] Name: TORI GRAY Rep #: [id number] : 1980 Provider: CONCEPCIÓN Montgomery Age/Sex: 44/F Location: [facility] Status: Signed Intake Vital Signs 03/09/24 14:53 [...] (Intermediate, Verified 10/19/24 09:22) Hives [facility] Medical History Abnormal ECG Prolonged Q-T interval [...] pain. She reports falling at work at [employer] (formerly [employer]) Saturday. She was setting dishes down when [...] spine nor (more content not included)... Normal [facility] Brain/Head without Contrasto n 10-16-2024 Brain/Head without Contrast [facility] [address] [place] [address] Brain/Head without Contrast MR#: [id number] Acct: [id number] Name: TORI GRAY Rep #: [id number] : 1980 F 44 From: Samir Brito MD PCP: Dr. Ivette Grimes MD Status: REG ER Study: Brain/Head without Contrast Date of Exam: 10/04 01/25 Exam# [id number] Ordering Dr: Angel Ji -[id number] INDICATION: fall EXAMINATION: CT BRAIN - [...] CC: FADUMO Ji; Dr. Ivette Grimes MD Senior Wealth Advisor: Signed Normal [facility] Emergency Department Summary on 10-16-2024 Emergency Department Summary [facility] Medical Records Department [address] [place] [address] Emergency Department Summary 10/16/24 MR#: [id number] Acct: [id number] Name: TOIR GRAY Rep #: [id number] : 1980 44 From: Sam Pearl MD [...] back pain. This will be Worker's Comp. [facility] Medical History Abnormal ECG Prolonged Q-T [...] home: Yes (more content not included)... Normal [facility] HIP, UNI W/ Pelvis 2-3 Views on 10-16-2024 HIP, UNI W/ Pelvis 2-[address] [facility] [address] [place], [place] [address] HIP, UNI W/ Pelvis 2-3 Views MR#: [id number] Acct: [id number] Name: TORI GRAY Rep #: [id number] : 1980 F 44 From: Samir Brito MD PCP: Dr. Ivette Grimes MD Status: [facility] Study: HIP, UNI W/ Pelvis 2-3 Views Date of Exam: Exam# [id number] Ordering Dr: Angel Ji DRAWER HARDWARE WORKER-C -[id number] INDICATION: right hip EXAMINATION/TECHNIQ UE: X-RAY [...] CC: FADUMO Ji; Dr. Ivette Grimes MD Senior Wealth Advisor: Signed Normal [facility] Lumbar Spine 2 or 3 Viewson 10-16-2024 Lumbar Spine [address] [facility] [address] [place] [address] Lumbar Spine 2 or 3 Views MR#: [id number] Acct: [id number] Name: TORI GRAY Rep #: [id number] : 1980 F 44 From: Samir Brito MD PCP: Dr. Ivette Grimes MD Status: REG ER Study: Lumbar Spine 2 or 3 Views Date of Exam: Exam# [id number] Ordering Dr: Angel Ji DRAWER HARDWARE WORKERPrasad -[id number] INDICATION: fall EXAMINATION/TECHNIQ UE: X-RAY - [...] CC: FADUMO Ji; Dr. Ivette Grimes MD Senior Wealth Advisor: Signed Normal [facility] Spine Cervical without Contr ason 10-16-[address] [facility] [address] [place], [place] [address] Spine Cervical without Contras MR#: [id number] Acct: [id number] Name: TORI GRAY Rep #: [id number] : 1980 F 44 From: Samir Brito MD PCP: Dr. Ivette Grimes MD Status: [facility] ER Study: Spine Cervical without Contras Date of Exam: 12/17/23 Exam# [id number] Ordering Dr: Angel Ji -[id number] INDICATION: fall EXAMINATION: CT SPINE - [...] CC: FADUMO Ji; Dr. Ivette Grimes MD Senior Wealth Advisor: Signed Normal [facility] Chiropractic Reporton 2023 Chiropractic Report [facility] [place], [place] [id number] OFFICE VISIT Date of Service: 09/09/24 MR#: [id number] Acct: [id number] Name: TORI GRAY Rep #: [id number] : 1980 Provider: CONCEPCIÓN Montgomery Age/Sex: 44/F Location: [facility] Status: Signed Intake Vital Signs 03/09/24 14:53 Height 5 ft 7 in Intake Visit Reasons: Back pain Chief Complaint: low Back pain/neck pain Is patient in pain?: Yes (low back ) Pain scale (1-10): 2 Allergies Corticosteroids (Glucocorticoids) (steroids) Allergy (Verified 09/09/24 10:06) Hives lidocaine Adverse Reaction (Intermediate, Verified 09/09/24 10:06) Hives Medications ???Medication ???Instructions ???Recorded ???Confirmed ???Type blood sugar diagnostic (Blood # ea 04/26/20 09/09/24 History Glucose Test strips) [...] less physic (more content not included)... [facility] Office Visit ([facility]) ---- ISAACTORI Ivan ([id number]) 1980 F Date Time Provider Department 09/03/24 1:00 PM FATUMA BECKFORD [facility] During your visit today, we recorded [...] for migraine Informed Consent Consent Obtained: Written Colony Protocol A moment to CARE was completed [...] applicable Written Consent Obtained: Written LOT #: [id number] Expiration Date: Month: : 2025 Second vial: LOT #: [id number] Expiration Date: Month: Year: 2025 Injection Sites Left (Units) Left (Sites) Right (Units) Right (Sites) TOTAL (Units) Consulting Project Director 5 1 5 1 10 Procerus Units: [...] for further instructions. Referring Provider: FATUMA BECKFORD [[id number]] Allergies As of Date: 09/03/2024 Noted Allergy Reaction FARXIGA (DAP (more content not included)... Normal [facility] 09-01-2024 [facility] Telephone ([facility]) ---- TORI GRAY ([id number]) 1980 F Date Time Provider Department 09/01/24 FATUMA BECKFORD [facility] During your visit today, we recorded the following information about you: Steph Nieto 09/01/2024 3:33 PM [facility]. Provider will be out of office. 1st attempt to notify pt, sent [facility] message. Tala Wilson 09/01/2024 3:54 PM Signed Patient read ap Baker Rebecca 09/01/2024 4:02 PM Signed Fatuma Giovani Ok'ed the use of a new patient [...] needed for wheezing/shortness of breath. - Ipratropium [place] (ATROVENT) 21 mcg (0.03 %) nasal spray [...] Each by INTRAUTERINE route as directed. - [place]-3 Fatty Acids (FISH OIL) 500 mg cap Take 1 capsule by mouth once daily. - blood sugar diagnostic (BLOOD GLUCOSE TEST) test strip Test blood sugar(s) 1 times daily. Dx: Type 2 DM - Controlled E11.9 Insulin: Yes - Lancets lancets Test blood sugar(s) 1 times daily. Dx: Type 2 DM - Controlled E11.9 Insulin: No - Esbepgfs-Wq-Rlm-Fe- FA tab Take 1 tablet by mouth [...] 02/16/2010 Routine general medical examination at a [facility]*12/06/2012 02/22/2014 Anxiety [F41.9] 06/07/2014 Type 2 [...] 08/16/2022 Fall (more content not included)... [facility] TORI G[facility] ([id number]) 1980 F Date Time Provider Department 09/01/24 CATHERINEFATUMA [facility] During your visit today, we recorded the following information about you: Rebecca Baker 09/01/2024 4:11 PM Signed Tori was Ok'ed to get her botox appointment moved into a new patient time due to frequent rescheduling of this visit. She is now scheduled for , 09/03. She has also requested a refill of her Nurtec ODT medication. Please advise Rebecca Baker Allergies As of Date: 09/01/2024 Noted Allergy Reaction FARXIGA (DAPAGLIFLOZIN) 08/05/2024 8 - GI Upset LIDOCAINE 12/24/2019 4 - Hives METFORMIN 08/05/2024 8 - GI Upset STEROIDS (BETAMETHASONE DIPROPION* 2 4 - Hives Date Reviewed: 08/05/2024 Reviewed by: Nirmala Storey LPN - Fully Assessed Reason for Visit: Patient Question [5857] Order(s):rimegepant (NURTEC ODT) 75 mg disintegrating tabletTake [...] needed for wheezing/shortness of breath. - Ipratropium [place] (ATROVENT) 21 mcg (0.03 %) nasal spray [...] Each by INTRAUTERINE route as directed. - [place]-3 Fatty Acids (FISH OIL) 500 mg cap Take 1 capsule by mouth once daily. - blood sugar diagnostic (BLOOD GLUCOSE TEST) test strip Test blood sugar(s) 1 times daily. Dx: Type 2 DM - Controlled E11.9 Insulin: Yes - Lancets lancets Test blood sugar(s) 1 times daily. Dx: Type 2 DM - Controlled E11.9 Insulin: No - Yuwnfkos-Ec-Hyo-Fe- FA tab Take 1 tablet by mouth [...] 02/16/2010 Routine general medical examination at a [facility]*12/06/2012 02/22/2014 Anxiety [F41.9] 06/07/2014 Type 2 [...] mellitus [Z86. (more content not included)... Normal [facility] Chiropractic Reporton 2023 Chiropractic Report [facility] [address] [place] [address] [id number] OFFICE VISIT Date of Service: 08/25/24 MR#: [id number] Acct: [id number] Name: TORI GRAY Rep #: [id number] : 1980 Provider: CONCEPCIÓN Montgomery Age/Sex: 44/F Location: [facility] Status: Signed Intake Vital Signs 03/09/24 14:53 Height 5 ft 7 in Intake Visit Reasons: Back pain Chief Complaint: low Back pain/neck pain Is patient in pain?: Yes Pain scale (1-10): 7 Allergies Corticosteroids (Glucocorticoids) (steroids) Allergy (Verified 08/25/24 09:29) Hives lidocaine Adverse Reaction (Intermediate, Verified 08/25/24 09:29) Hives [facility] Medical History Abnormal ECG Prolonged Q-T interval [...] disease Triple bypass surgery Social History (Reviewed 08/25/24 @ 09:30 by Serena Lowe Smoking Status: Never smoker alcohol intake: never [...] L5 a (more content not included)... Normal [facility] Chiropractic Reporton 2023 Chiropractic Report [facility] [address] [place] [address] OFFICE VISIT Date of Service: 08/13/24 MR#: [id number] Acct: [id number] Name: TORI GRAY Rep #: [id number] : 1980 Provider: CONCEPCIÓN Montgomery Age/Sex: 44/F [place] [facility] Status: Signed Intake Vital Signs 03/09/24 14:53 [...] glute and thig (more content not included)... [facility] 08-11-2024 [facility] Telephone ([facility]) ---- TORI GRAY ([id number]) 1980 F Date Time Provider Department 08/11/24 FATUMA BECKFORD [facility] During your visit today, we recorded [...] needed for wheezing/shortness of breath. - Ipratropium [place] (ATROVENT) 21 mcg (0.03 %) nasal spray [...] Each by INTRAUTERINE route as directed. - [place]-3 Fatty Acids (FISH OIL) 500 mg cap Take 1 capsule by mouth once daily. - blood sugar diagnostic (BLOOD GLUCOSE TEST) test strip Test blood sugar(s) 1 times daily. Dx: Type 2 DM - Controlled E11.9 Insulin: Yes - Lancets lancets Test blood sugar(s) 1 times daily. Dx: Type 2 DM - Controlled E11.9 Insulin: No - Xjlwdjbp-Ve-Crj-Fe- FA tab Take 1 tablet by mouth [...] 05/06/2009 01/23/2010 Routine general medical examination at [facility]*01/23/2010 12/06/2012 Class: Chronic Routine gynecological examination [Z01.419] 01/23/2010 02/22/2014 Class: Chronic Morbid Obesity [E66.01] 01/23/2010 Lumbar Disc Disorder [M51.9] 02/16/2010 Routine general medical examination at [facility]*12/06/2012 02/22/2014 Anxiety [F41.9] 06/07/2014 Type 2 [...] 09/04/2022 11 (more content not included)... 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 Excited for this because will not be as physical. Reviewed labs recently done at [facility]. A1c was 6.7. ldl was 105. [...] as needed for wheezing/shortness of breath. Ipratropium [place] (ATROVENT) 21 mcg (0.03 %) nasal spray [...] 1 Each by INTRAUTERINE route as directed. [place]-3 Fatty Acids (FISH OIL) 500 mg cap Take 1 capsule by mouth once daily. blood sugar diagnostic (BLOOD GLUCOSE TEST) test strip Test blood sugar(s) 1 times daily. Dx: Type 2 DM - Controlled E11.9 Insulin: Yes Lancets lancets Test blood sugar(s) 1 times daily. Dx: Type 2 DM - Controlled E11.9 Insulin: No Ijhovufc-Re-Nsa-Fe- FA tab Take 1 tablet by mouth [...] Age of Onset Alcohol/Drug Mother Heart Father [place] Cancer Father PANCREATIC CANCER Diabetes Father Coronary [...] surgical h (more content not included)... Normal [facility] 08-05-2024 [facility] ---- TORI GRAY ([id number]) 1980 F Date Time Provider Department 08/05/24 [facility] GR[facility] During your visit today, we recorded the following information about you: Dennise Robles MA 08/06/2024 10:44 AM Signed APPROVAL. [facility]. [facility] # [id number] VALIDITY DATES 08/06/24-08/05/25 Pharmacy informed. Dennise Rboles MA Allergies As of Date: 08/05/2024 Noted Allergy Reaction FARXIGA (DAPAGLIFLOZIN) 08/05/2024 8 - GI Upset LIDOCAINE 12/24/2019 4 - Hives METFORMIN 08/05/2024 8 - GI Upset STEROIDS (BETAMETHASONE DIPROPION* 2 4 - Hives Date Reviewed: 08/05/2024 Reviewed by: Nirmala Storey LPN - Fully Assessed Reason for Visit: Insurance Authorization [[id number]] Cmt: Ozempic Prescriptions as of 08/06/2024 - [...] needed for wheezing/shortness of breath. - Ipratropium [place] (ATROVENT) 21 mcg (0.03 %) nasal spray [...] Each by INTRAUTERINE route as directed. - [place]-3 Fatty Acids (FISH OIL) 500 mg cap Take 1 capsule by mouth once daily. - blood sugar diagnostic (BLOOD GLUCOSE TEST) test strip Test blood sugar(s) 1 times daily. Dx: Type 2 DM - Controlled E11.9 Insulin: Yes - Lancets lancets Test blood sugar(s) 1 times daily. Dx: Type 2 DM - Controlled E11.9 Insulin: No - Pgqyknfq-De-Cyf-Fe- FA tab Take 1 tablet by mouth [...] 02/16/2010 Routine general medical examination at a [facility]*12/06/2012 02/22/2014 Anxiety [F41.9] 06/07/2014 Type 2 [...] 09/04/2022 11 (more content not included)... Normal [facility] Chiropractic Reporton 2023 Chiropractic Report [facility] [address] [place] [address] OFFICE VISIT Date of Service: 07/30/24 MR#: [id number] Acct: [id number] Name: TORI GRAY Rep #: [id number] : 1980 Provider: CONCEPCIÓN Montgomery Age/Sex: 44/F Location: [facility] Status: Signed Intake Vital Signs 03/09/24 14:53 Height 5 ft 7 in Intake Visit Reasons: Back pain Chief Complaint: low Back pain Is patient in pain?: Yes Pain scale (1-10): 8 Allergies Corticosteroids (Glucocorticoids) (steroids) Allergy (Verified 07/30/24 10:58) Hives lidocaine Adverse Reaction (Intermediate, Verified 07/30/24 10:58) Hives [facility] Medical History Abnormal ECG Prolonged Q-T interval [...] L4, Thoracic (more content not included)... Normal [facility] Chest PA and Lateralon 07-22 Chest PA and Lateral [facility] Imaging Services [address] [place], [place] [address] Chest PA and Lateral MR#: [id number] Acct: [id number] Name: TORI GRAY Rep #: [id number] : 1980 F 44 From: Gregorio barry MD PCP: Dr. Ivette Grimes MD Status: [facility] Study: Chest PA and Lateral Date of Exam: 07/22/24 Exam# [id number] Ordering Dr: Ivette Grimes MD [id number] STUDY: X-RAY CHEST REASON FOR EXAM: [...] EDT , CC: Dr. Ivette Grimes MD Senior Wealth Advisor: Signed Normal [facility] TORI GRAY ([id number]) 1980 F Date Time Provider Department 07/21/24 IVETTE GRIMES [facility] During your visit today, we recorded [...] notified. Requested to have order faxed to [facility]. Order faxed. Ingrid Salmon MA Allergies As of Date: 07/21/2024 Noted Allergy Reaction LIDOCAINE 12/24/2019 4 - Hives STEROIDS (BETAMETHASONE DIPROPION*02/17/202 2 4 - Hives Date Reviewed: 07/03/2024 Reviewed by: Nirmala Storey LPN - Fully Assessed Reason for Visit: Orders [681] Primary Visit Diagnosis:Cough, unspecified type [R05.9] Order(s):XR CHEST 2V FRONTAL/LAT [1547902] Order #: [id number] FUTURE Prescriptions as of 07/21/2024 - dapagliflozin [...] needed for wheezing/shortness of breath. - Ipratropium [place] (ATROVENT) 21 mcg (0.03 %) nasal spray [...] Each by INTRAUTERINE route as directed. - [place]-3 Fatty Acids (FISH OIL) 500 mg cap Take 1 capsule by mouth once daily. - blood sugar diagnostic (BLOOD GLUCOSE TEST) test strip Test blood sugar(s) 1 times daily. Dx: Type 2 DM - Controlled E11.9 Insulin: Yes - Lancets lancets Test blood sugar(s) 1 times daily. Dx: Type 2 DM - Controlled E11.9 Insulin: No - Qnlftnkm-Mv-Ypu-Fe- FA tab Take 1 tablet by mouth [...] 05/06/2009 01/23/2010 Routine general medical examination at [facility]*01/23/2010 12/06/2012 Class: Chronic Routine gynecological examination [Z01.419] 01/23/2010 02/22/2014 Class: Chronic Morbid Obesity [E66.01] 01/23/2010 Lumbar Disc Disorder [M51.9] 02/16/2010 Routine general medical examination at [facility]*12/06/2012 02/22/2014 Anxiety [F41.9] 06/07/2014 Type 2 [...] lumbar intervertebr (more content not included)... Normal [facility] Chiropractic Reporton 2023 Chiropractic Report [facility]ractic [address] [place] [address] OFFICE VISIT Date of Service: 07/16/24 MR#: [id number] Acct: [id number] Name: TORI GRAY Rep #: [id number] : 1980 Provider: CONCEPCIÓN Montgomery Age/Sex: 44/F [place] [facility] Status: Signed Intake Vital Signs 03/09/24 14:53 Height 5 ft 7 in Intake Visit Reasons: Back pain Chief Complaint: low Back pain Is patient in pain?: Yes Pain scale (1-10): 5 Allergies Corticosteroids (Glucocorticoids) (steroids) Allergy (Verified 07/16/24 11:27) Hives lidocaine Adverse Reaction (Intermediate, Verified 07/16/24 11:27) Hives [facility] Medical History Abnormal ECG Prolonged [...] work activities. 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 Normal [facility] 07-09-2024 [facility] Telephone (OLGA) ---- TORI GRAY ([id number]) 1980 F Date Time Provider Department 07/09/24 IVETTE GRIMES [facility] During your visit today, we recorded the following information about you: Gale Bower, PEPE 07/09/2024 4:37 PM Signed Patient calls and [...] microalbuminuria, with long-term current use of insulin ([facility]) [E11.29, R80.9, Z79.4] Order(s):dapagliflo zin propanediol (FARXIGA) [...] needed for wheezing/shortness of breath. - Ipratropium [place] (ATROVENT) 21 mcg (0.03 %) nasal spray [...] Each by INTRAUTERINE route as directed. - [place]-3 Fatty Acids (FISH OIL) 500 mg cap Take 1 capsule by mouth once daily. - blood sugar diagnostic (BLOOD GLUCOSE TEST) test strip Test blood sugar(s) 1 times daily. Dx: Type 2 DM - Controlled E11.9 Insulin: Yes - Lancets lancets Test blood sugar(s) 1 times daily. Dx: Type 2 DM - Controlled E11.9 Insulin: No - Wrnilehh-Wl-Gjr-Fe- FA tab Take 1 tablet by mouth [...] 01/23/2010 Routine general medical examination at a [facility]*01/23/2010 12/06/2012 Class: Chronic Routine gynecological examination [Z01.419] 01/23/2010 02/22/2014 Class: Chronic Morbid Obesity [E66.01] 01/23/2010 Lumbar Disc Disorder [M51.9] 02/16/2010 Routine general medical examination at a [facility]*12/06/2012 02/22/2014 Anxiety [F41.9] 06/07/2014 Typ (more content not included)... [facility] Tele[facility] (FAMWS) ---- TORI GRAY ([id number]) 1980 F Date Time Provider Department 07/08/24 IVETTE GRIMES [facility] During your visit today, we recorded [...] needed for wheezing/shortness of breath. - Ipratropium [place] (ATROVENT) 21 mcg (0.03 %) nasal spray [...] Each by INTRAUTERINE route as directed. - [place]-3 Fatty Acids (FISH OIL) 500 mg cap Take 1 capsule by mouth once daily. - blood sugar diagnostic (BLOOD GLUCOSE TEST) test strip Test blood sugar(s) 1 times daily. Dx: Type 2 DM - Controlled E11.9 Insulin: Yes - Lancets lancets Test blood sugar(s) 1 times daily. Dx: Type 2 DM - Controlled E11.9 Insulin: No - Oymhvwcw-Fm-Qit-Fe- FA tab Take 1 tablet by mouth [...] 05/06/2009 01/23/2010 Routine general medical examination at [facility]*01/23/2010 12/06/2012 Class: Chronic Routine gynecological examination [Z01.419] 01/23/2010 02/22/2014 Class: Chronic Morbid Obesity [E66.01] 01/23/2010 Lumbar Disc Disorder [M51.9] 02/16/2010 Routine general medical examination at [facility]*12/06/2012 02/22/2014 Anxiety [F41.9] 06/07/2014 Type 2 [...] upper extre (more content not included)... Normal [facility] HBA1C (OUTSIDE)on 07-08-2024 HbA1c (Bld) [Mass fraction] 6.7 % [facility] LIPID PANEL (OUTSIDE)on Cholesterol [Mass/Vol] 195 mg/dL [facility] Cholesterol in HDL [Mass/Vol] 35 mg/dL [facility] Cholesterol in LDL [Mass/Vol] 105 mg/dL [facility] LDL:HDL Ratio [facility] Non-HDL Cholesterol [facility] TC:HDL Ratio [facility] Triglyceride [Mass/Vol] 274 mg/dL [facility] VLDL Cholesterol 55 [facility] No Panel Informationon 07-08 [facility] MICROALBUMIN/CREATININE UR W RATIO (EXTERNAL)Ordered By: Lubna Yoon on 07-04-2024 Albumin/Creat Ratio 93 [facility] Creatinine Urine 164 [facility] Microalbumin, Random urine 153 [facility] CNOVon 07-03-2024 CNOV Office Visit (FAMPWS) ---- TORI GRAY ([id number]) 1980 F Date Time Provider Department 07/03/24 3:40 PM [facility] During your visit today, we recorded the [...] as needed for wheezing/shortness of breath. Ipratropium [place] (ATROVENT) 21 mcg (0.03 %) nasal spray [...] 1 Each by INTRAUTERINE route as directed. [place]-3 Fatty Acids (FISH OIL) 500 mg cap Take 1 capsule by mouth once daily. blood sugar diagnostic (BLOOD GLUCOSE TEST) test strip Test blood sugar(s) 1 times daily. Dx: Type 2 DM - Controlled E11.9 Insulin: Yes Lancets lancets Test blood sugar(s) 1 times daily. Dx: Type 2 DM - Controlled E11.9 Insulin: No Xbarolgc-Ry-Ylh-Fe- FA tab Take 1 tablet by mouth [...] Age of Onset Alcohol/Drug Mother Heart Father CO Cancer Father PANCREATIC CANCER Diabetes Father Coronary [...] in no (more content not included)... Normal [facility] Absolute lymphocyte countOrd ered By: Sam Pearl on 02-04-2024 Lymphocytes Auto (Unsp spec) [#/Vol] 2.24 10*3/uL 0.83-4.51 [facility] Automated lymphocyte count a s percentage of total leukocytesOrdered By: Sam Pearl on 02-04-2024 Lymphocytes/100 WBC Auto (Unsp spec) 19.8 % 19-41 [facility] Basophil percentageOrdered B y: Sam Pearl on 02-04-2024 Basophils/100 WBC (Bld) 0.4 % 0-1 [facility] Chloride [Moles/Vol] 106 mmol/L 98-107 [facility] Eosinophils/100 WBC (Bld) 0.9 % 0-5 [facility] Glucose [Mass/Vol] 246 mg/dL 74-106 [facility] Comment on above: Glucose result great er than or equal to 200 mg/dLsuggests DIABETES MELLITUS per A.D.A. criteria. Hemoglobin (Bld) [Mass/Vol] 11.2 g/dL 12.0-15.0 [facility] Monocytes/100 WBC (Bld) 6.6 % 0-10 [facility] Neutrophils (Bld) [#/Vol] 8.0 10*3/uL 2.0-7.7 [facility] Neutrophils/100 WBC (Bld) 71.0 % 47-70 [facility] Potassium [Moles/Vol] 3.6 mmol/L 3.5-5.1 [facility] Sodium [Moles/Vol] 135 mmol/L 136-145 [facility] WBC (Bld) [#/Vol] 11.3 10*3/uL 4.4-11.0 [facility] Basophil percentage 10-25 SEEN /hpf 0-5 [facility] Bilirubin Test strip Ql (U)O rdered By: Sam Pearl on 02-04-2024 Bilirubin Ql (U) Negative Negative [facility] Determination of erythrocyte mean corpuscular volume (MCV)Ordered By: Sam Pearl on 02-04-2024 MCV (RBC) [Entitic vol] 89.5 fL 81-99 [facility] Erythrocyte distribution wid th ratioOrdered By: Sam Pearl on 02-04-2024 Erythrocyte distribution width (RBC) [Ratio] 13.2 % 11.6-14.6 [facility] Erythrocyte distribution wid th standard deviationOrdered By: Sam Pearl on 02-04-2024 Erythrocyte distribution width (RBC) [Entitic vol] 43.2 fL 35.1-43.9 [facility] Hematocrit Auto (Bld) [Volum e fraction]Ordered By: Sam Pearl on 02-04-2024 Hematocrit (Bld) [Volume fraction] 34.2 % 37-47 [facility] Immature granulocytes/100 WB C Auto (Bld)Ordered By: Sam Pearl on 02-04-2024 Immature granulocytes/100 WBC (Bld) 1.300 % 0.0-0.9 [facility] Comment on above: IG% - Immature Granu locytes (promyelocytes, myelocytes and metamyelocytes) > 1% indicates that a LEFT SHIFT is Present. Ketones Test strip Ql (U)Ord ered By: Sam Pearl on 02-04-2024 Ketones Ql (U) Negative Negative [facility] Laboratory - Chemistry and C hemistry - challengeOrdered By: Sam Pearl on 02-04-2024 CO2 [Moles/Vol] 21.0 mmol/L 21.0-32.0 [facility] Urea nitrogen/Creatinine [Mass ratio] 15.0 mg/mg 10-20 [facility] Laboratory - Hematology and Cell countsOrdered By: Sam Pearl on 02-04-2024 MCH (RBC) [Entitic mass] 29.3 pg 27.0-32.0 [facility] MCHC (RBC) [Mass/Vol] 32.7 g/dL 32- [facility] Nucleated RBC/100 WBC (Bld) [Ratio] 0 % 0-5 [facility] Platelet mean volume (Bld) [Entitic vol] 9.2 fL 6.2-12.0 [facility] Platelets (Bld) [#/Vol] 203 10*3/uL 150-450 [facility] Laboratory - Microbiology an d Antimicrobial susceptibilityOrdered By: Sam Pearl on 02-04-2024 SARS-CoV-2 (COVID-19) RNA ALLYSON+probe Ql (Unsp spec) [facility] Mucus LM Ql (Urine sed)Order ed By: Sam Pearl on 02-04-2024 Mucus Ql (Urine sed) 0 SEEN /hpf [facility] Nitrite Test strip Ql (U)Ord ered By: Sam Pearl on 02-04-2024 Nitrite Ql (U) Negative Negative [facility] No Panel InformationOrdered By: Sam Pearl on 02-04-2024 Estimated Creatinine Clearance Calc 116.68 ml/min [facility] Estimated GFR (MDRD) Amer 92 mL/min >60 [facility] Comment on above: GFR Calc Estimated GFR (MDRD) Non-Af Amer 76 mL/min >60 [facility] Comment on above: Non- GFR Calc Urine RBC 0-5 SEEN /hpf 0-5 [facility] Protein Test strip Ql (U)Ord ered By: Sam Pearl on 02-04-2024 Protein Ql (U) 15 mg/dl Negative [facility] RBC Auto (Bld) [#/Vol]Ordere d By: Sam Pearl on 02-04-2024 RBC (Bld) [#/Vol] 3.82 10*6/uL 4.2-5.4 [facility] Serum or plasma calcium sharron urement (mass/volume)Ordered By: Sam Pearl on 02-04-2024 Calcium [Mass/Vol] 8.4 mg/dL 8.5-10.1 [facility] Serum or plasma creatinine m easurement (mass/volume)Ordered By: Sam Pearl on 02-04-2024 Creatinine [Mass/Vol] 0.87 mg/dL 0.55-1.02 [facility] Comment on above: The validity of the calculated GFR & GFRAA in patients over 70 years has not been determined. Clinical correlation is essential. Serum or plasma urea nitroge n measurement (mass/volume)Ordered By: Sam Pearl on 02-04-2024 Urea nitrogen [Mass/Vol] 13 mg/dL 7-18 [facility] Squamous epithelial cells de tection in urine sediment by light microscopyOrdered By: Sam Pearl on 02-04-2024 Epithelial cells.squamous LM Ql (Urine sed) 0-5 SEEN /hpf 5-10 [facility] Thin prep Papanicolaou smear with manual screeningOrdered By: Sam Pearl on 02-04-2024 Thin prep Papanicolaou smear with manual screening 8 5-15 [facility] Urine blood detectionOrdered By: Sam Pearl on 02-04-2024 RBC Ql (U) 10 /ul Negative [facility] Urine clarityOrdered By: Ramses Pearl on 02-04-2024 Clarity (U) Clear Clear [facility] Urine color determinationOrd ered By: Sam Pearl on 02-04-2024 Color (U) Yellow Yellow [facility] Urine glucose detectionOrder ed By: Sam Pearl on 02-04-2024 Glucose Ql (U) Normal mg/dl Normal [facility] Urine leukocyte esterase det ection by dipstickOrdered By: Sam Pearl on 02-04-2024 Leukocyte esterase Test strip Ql (U) 100 /ul Negative [facility] Urine pHOrdered By: Sam Pearl on 02-04-2024 pH (U) 7.0 [pH] 5.0 - 8.0 [facility] Urine sediment bacteria coun t by microscopy (number/high power field)Ordered By: Sam Pearl on 02-04-2024 Bacteria LM.HPF (Urine sed) [#/Area] 4 /[HPF] None Seen [facility] Urine specific gravity measu rementOrdered By: Sam Pearl on 02-04-2024 Specific gravity (U) [Rel density] 1.010 1.002-1.030 [facility] Urine urobilinogen measureme ntOrdered By: Sam Pearl on 02-04-2024 Urobilinogen Ql (U) Normal mg/dl Normal [facility] Absolute lymphocyte countOrd ered By: Ivette Grimes on 12-06-2023 Lymphocytes Auto (Unsp spec) [#/Vol] 2.89 10*3/uL 0.83-4.51 [facility] Automated lymphocyte count a s percentage of total leukocytesOrdered By: Ivette Grimes on 12-06-2023 Lymphocytes/100 WBC Auto (Unsp spec) 27.0 % 19-41 [facility] Basophil percentageOrdered B y: Ivette Grimes on 12-06-2023 Basophils/100 WBC (Bld) 0.7 % 0-1 [facility] Bilirubin [Mass/Vol] 0.50 mg/dL 0.20-1.00 [facility] Comment on above: For patients on eltr ombopag therapy, use of Dimension [place] TBIL is not recommended. Chloride [Moles/Vol] 113 mmol/L 98-107 [facility] Cholesterol [Mass/Vol] 202 mg/dL <200 [facility] Comment on above: <200 mg/dL Desirable 200-240 mg/dL Borderline >240 mg/dL High Risk Eosinophils/100 WBC (Bld) 1.4 % 0-5 [facility] Glucose [Mass/Vol] 113 mg/dL 74-106 [facility] Comment on above: Fasting Glucose resu lt from 100 to 125 mg/dL suggests IMPAIRED HOMEOSTASIS per A.D.A. criteria. Hemoglobin (Bld) [Mass/Vol] 13.1 g/dL 12.0-15.0 [facility] Monocytes/100 WBC (Bld) 3.6 % 0-10 [facility] Neutrophils (Bld) [#/Vol] 7.1 10*3/uL 2.0-7.7 [facility] Neutrophils/100 WBC (Bld) 66.3 % 47-70 [facility] Potassium [Moles/Vol] 4.0 mmol/L 3.5-5.1 [facility] Protein [Mass/Vol] 8.7 g/dL 6.4-8.2 [facility] Sodium [Moles/Vol] 138 mmol/L 136-145 [facility] Triglyceride [Mass/Vol] 192 mg/dL <199 [facility] Comment on above: The drugs N-Acetylcy steine and Metamizole may falsely depress this assay.Serum Triglycerides Reference Interval Normal <150 mg/dL Borderline high 150 - 199 mg/dL High 200 - 499 mg/dL Very High > or = 500 mg/dL WBC (Bld) [#/Vol] 10.7 10*3/uL 4.4-11.0 [facility] Determination of erythrocyte mean corpuscular volume (MCV)Ordered By: Ivette Grimes on 12-06-2023 MCV (RBC) [Entitic vol] 92.8 fL 81-99 [facility] Erythrocyte distribution wid th ratioOrdered By: Ivette Grimes on 12-06-2023 Erythrocyte distribution width (RBC) [Ratio] 13.1 % 11.6-14.6 [facility] Erythrocyte distribution wid th standard deviationOrdered By: Ivette Grimes on 12-06-2023 Erythrocyte distribution width (RBC) [Entitic vol] 44.4 fL 35.1-43.9 [facility] Hematocrit Auto (Bld) [Volum e fraction]Ordered By: Ivette Grimes on 12-06-2023 Hematocrit (Bld) [Volume fraction] 39.9 % 37-47 [facility] Immature granulocytes/100 WB C Auto (Bld)Ordered By: Ivette Grimes on 12-06-2023 Immature granulocytes/100 WBC (Bld) 1.000 % 0.0-0.9 [facility] Comment on above: IG% - Immature Granu locytes (promyelocytes, myelocytes and metamyelocytes) > 1% indicates that a LEFT SHIFT is Present. Laboratory - Chemistry and C hemistry - challengeOrdered By: Ivette Grimes on 12-06-2023 Albumin/Globulin [Mass ratio] 0.9 {ratio} 0.9-2.4 [facility] ALP [Catalytic activity/Vol] 80 U/L 45-117 [facility] ALT [Catalytic activity/Vol] 24 U/L 13-56 [facility] Cholesterol in HDL (Body fld) [Mass/Vol] 36 mg/dL >40 [facility] Comment on above: The drugs N-Acetylcy steine and Metamizole may falsely depress this assay. Reference Range HDL <40 mg/dL Low HDL Cholesterol HDL >or= 60 mg/dL High HDL Cholesterol Cholesterol in LDL (Body fld) [Moles/Vol] 128 mg/dL 0-130 [facility] Cholesterol in VLDL Calc [Moles/Vol] 38 mg/dL 5-40 [facility] CO2 [Moles/Vol] 19.0 mmol/L 21.0-32.0 [facility] Globulin (S) [Mass/Vol] 4.6 g/dL 2.2-4.2 [facility] Urea nitrogen/Creatinine [Mass ratio] 25.9 mg/mg 10-20 [facility] Laboratory - Hematology and Cell countsOrdered By: Ivette Grimes on 12-06-2023 MCH (RBC) [Entitic mass] 30.5 pg 27.0-32.0 [facility] MCHC (RBC) [Mass/Vol] 32.8 g/dL 32-36 [facility] Nucleated RBC/100 WBC (Bld) [Ratio] 0 % 0-5 [facility] Platelets (Bld) [#/Vol] 241 10*3/uL 150-450 [facility] No Panel InformationOrdered By: Ivette Grimes on 12-06-2023 Estimated GFR (MDRD) Amer 90 mL/min >60 [facility] Comment on above: GFR Calc Estimated GFR (MDRD) Non-Af Amer 74 mL/min >60 [facility] Comment on above: Non- GFR Calc Platelet mean volume Jose-Ec ker (Bld) [Entitic vol]Ordered By: Ivette Grimes on 12-06-2023 Platelet mean volume (Bld) [Entitic vol] 8.8 fL 6.2-12.0 [facility] RBC Auto (Bld) [#/Vol]Ordere d By: Ivette Grimes on 12-06-2023 RBC (Bld) [#/Vol] 4.30 10*6/uL 4.2-5.4 [facility] Serum or plasma calcium sharron urement (mass/volume)Ordered By: Ivette Grimes on 12-06-2023 Calcium [Mass/Vol] 9.1 mg/dL 8.5-10.1 [facility] Serum or plasma creatinine m easurement (mass/volume)Ordered By: Ivette Grimes on 12-06-2023 Creatinine [Mass/Vol] 0.89 mg/dL 0.55-1.02 [facility] Comment on above: The validity of the calculated GFR & GFRAA in patients over 70 years has not been determined. Clinical correlation is essential. Serum or plasma urea nitroge n measurement (mass/volume)Ordered By: Ivette Griems on 12-06-2023 Urea nitrogen [Mass/Vol] 23 mg/dL 7-18 [facility] Thin prep Papanicolaou smear with manual screeningOrdered By: Ivette Grimes on 12-06-2023 Thin prep Papanicolaou smear with manual screening 4.1 g/dL 3.2-5.0 [facility] Thin prep Papanicolaou smear with manual screening 11 U/L 15-37 [facility] Thin prep Papanicolaou smear with manual screening 6 5-15 [facility] Whole blood hemoglobin A1c/t otal hemoglobin ratio (mass fraction)Ordered By: Ivette Grimes on 12-06-2023 HbA1c (Bld) [Mass fraction] 5.7 % 3.8-5.6 [facility] Comment on above: Normal < 5.7 % Predi abetic 5.7 - 6.4 % Diabetic >or= 6.5 % Please note range changes. Glucose Glucometer (BldC) [M ass/Vol]Ordered By: Sosa Mendez on 08-07-2023 Glucose [Mass/Vol] 157 mg/dL 74-106 [facility] Comment on above: MANAGEMENT OF PATIEN T CARE PER NURSING PROTOCOL Absolute lymphocyte countOrd ered By: Sosazackary Mendez on 08-06-2023 Lymphocytes Auto (Unsp spec) [#/Vol] 2.45 10*3/uL 0.83-4.51 [facility] Basophil percentageOrdered B y: Sosa Vanessa on 08-06-2023 Basophils/100 WBC (Bld) 0.8 % 0-1 [facility] Chloride [Moles/Vol] 111 mmol/L 98-107 [facility] Cholesterol [Mass/Vol] 173 mg/dL <200 [facility] Comment on above: <200 mg/dL Desirable 200-240 mg/dL Borderline >240 mg/dL High Risk Eosinophils/100 WBC (Bld) 3.1 % 0-5 [facility] Glucose [Mass/Vol] 143 mg/dL 74-106 [facility] Comment on above: Fasting Glucose resu lt greater than or equal to 126 mg/dL suggests DIABETES MELLITUS per A.D.A. criteria. Neutrophils (Bld) [#/Vol] 3.9 10*3/uL 2.0-7.7 [facility] Neutrophils/100 WBC (Bld) 54.5 % 47-70 [facility] Potassium [Moles/Vol] 3.6 mmol/L 3.5-5.1 [facility] Sodium [Moles/Vol] 139 mmol/L 136-145 [facility] Triglyceride [Mass/Vol] 325 mg/dL <199 [facility] Comment on above: The drugs N-Acetylcy steine and Metamizole may falsely depress this assay.Serum Triglycerides Reference Interval Normal <150 mg/dL Borderline high 150 - 199 mg/dL High 200 - 499 mg/dL Very High > or = 500 mg/dL WBC (Bld) [#/Vol] 7.1 10*3/uL 4.4-11.0 [facility] Blood erythrocytes count (nu mber/volume)Ordered By: Sosa Mendez on 08-06-2023 RBC (Bld) [#/Vol] 4.15 10*6/uL 4.2-5.4 [facility] Blood hemoglobin measurement (mass/volume)Ordered By: Sosa Mendez on 08-06-2023 Hemoglobin (Bld) [Mass/Vol] 13.0 g/dL 12.0-15.0 [facility] Blood lymphocytes/100 leukoc ytesOrdered By: Sosa Mendez on 08-06-2023 Lymphocytes/100 WBC (Bld) 34.4 % 19-41 [facility] Blood monocytes/100 leukocyt esOrdered By: Sosa Mendez on 08-06-2023 Monocytes/100 WBC (Bld) 5.2 % 0-10 [facility] Blood platelet mean volumeOr dered By: Sosa Mendez on 08-06-2023 Platelet mean volume (Bld) [Entitic vol] 9.4 fL 6.2-12.0 [facility] Determination of erythrocyte mean corpuscular volume (MCV)Ordered By: Sosa Mendez on 08-06-2023 MCV (RBC) [Entitic vol] 95.4 fL 81-99 [facility] Hematocrit Auto (Bld) [Volum e fraction]Ordered By: Sosa Mendez on 08-06-2023 Hematocrit (Bld) [Volume fraction] 39.6 % 37-47 [facility] Laboratory - Chemistry and C hemistry - challengeOrdered By: Sosa Mendez on 08-06-2023 CO2 [Moles/Vol] 23.0 mmol/L 21.0-32.0 [facility] Urea nitrogen/Creatinine [Mass ratio] 15.4 mg/mg 10-20 [facility] Laboratory - Hematology and Cell countsOrdered By: Sosa Mendez on 08-06-2023 Erythrocyte distribution width (RBC) [Entitic vol] 45.4 fL 35.1-43.9 [facility] Erythrocyte distribution width (RBC) [Ratio] 13.0 % 11.6-14.6 [facility] Immature granulocytes/100 WBC (Bld) 2.000 % 0.0-0.9 [facility] Comment on above: IG% - Immature Granu locytes (promyelocytes, myelocytes and metamyelocytes) > 1% indicates that a LEFT SHIFT is Present. MCH (RBC) [Entitic mass] 31.3 pg 27.0-32.0 [facility] Nucleated RBC/100 WBC (Bld) [Ratio] 0 % 0-5 [facility] MCHC Auto (RBC) [Mass/Vol]Or dered By: Sosa Mendez on 08-06-2023 MCHC (RBC) [Mass/Vol] 32.8 g/dL 32-36 [facility] No Panel InformationOrdered By: Sosa Mendez on 08-06-2023 Estimated Creatinine Clearance Calc 92.30 ml/min [facility] Estimated GFR (MDRD) Amer 104 mL/min >60 [facility] Comment on above: GFR Calc Estimated GFR (MDRD) Non-Af Amer 86 mL/min >60 [facility] Comment on above: Non- GFR Calc Platelets bldOrdered By: Shanell Mendez on 08-06-2023 Platelets (Bld) [#/Vol] 184 10*3/uL 150-450 [facility] Serum or plasma calcium sharron urement (mass/volume)Ordered By: Sosa Mendez on 08-06-2023 Calcium [Mass/Vol] 8.2 mg/dL 8.5-10.1 [facility] Serum or plasma cholesterol in HDL measurement (mass/volume)Ordered By: Sosa Mendez on 08-06-2023 Cholesterol in HDL [Mass/Vol] 29 mg/dL >40 [facility] Comment on above: The drugs N-Acetylcy steine and Metamizole may falsely depress this assay. Reference Range HDL <40 mg/dL Low HDL Cholesterol HDL >or= 60 mg/dL High HDL Cholesterol Serum or plasma cholesterol in VLDL measurement (mass/volume)Ordered By: Sosa Mendez on 08-06-2023 Cholesterol in VLDL [Mass/Vol] 65 mg/dL 5-40 [facility] Serum or plasma creatinine m easurement (mass/volume)Ordered By: Sosa Mendez on 08-06-2023 Creatinine [Mass/Vol] 0.78 mg/dL 0.55-1.02 [facility] Comment on above: The validity of the calculated GFR & GFRAA in patients over 70 years has not been determined. Clinical correlation is essential. Serum or plasma low density lipoprotein (LDL) cholesterol measurement (mass/volume)Ordered By: Sosa Mendez on 08-06-2023 Cholesterol in LDL [Mass/Vol] 79 mg/dL 0-130 [facility] Serum or plasma urea nitroge n measurement (mass/volume)Ordered By: Sosa Mendez on 08-06-2023 Urea nitrogen [Mass/Vol] 12 mg/dL 7-18 [facility] Thin prep Papanicolaou smear with manual screeningOrdered By: Sosa Mendez on 08-06-2023 Thin prep Papanicolaou smear with manual screening 5 5-15 [facility] Absolute lymphocyte countOrd ered By: Niurka Kendall on 08-05-2023 Lymphocytes Auto (Unsp spec) [#/Vol] 2.33 10*3/uL 0.83-4.51 [facility] Basophil percentageOrdered B y: Niurka Kendall on 08-05-2023 Basophils/100 WBC (Bld) 0.9 % 0-1 [facility] Chloride [Moles/Vol] 110 mmol/L 98-107 [facility] Eosinophils/100 WBC (Bld) 2.6 % 0-5 [facility] Glucose [Mass/Vol] 108 mg/dL 74-106 [facility] Comment on above: Fasting Glucose resu lt from 100 to 125 mg/dL suggests IMPAIRED HOMEOSTASIS per A.D.A. criteria. Neutrophils (Bld) [#/Vol] 4.7 10*3/uL 2.0-7.7 [facility] Neutrophils/100 WBC (Bld) 59.9 % 47-70 [facility] Potassium [Moles/Vol] 3.7 mmol/L 3.5-5.1 [facility] Sodium [Moles/Vol] 140 mmol/L 136-145 [facility] WBC (Bld) [#/Vol] 7.8 10*3/uL 4.4-11.0 [facility] Blood erythrocytes count (nu mber/volume)Ordered By: Niurka Kendall on 08-05-2023 RBC (Bld) [#/Vol] 4.04 10*6/uL 4.2-5.4 [facility] Blood hemoglobin measurement (mass/volume)Ordered By: Niurka Kendall on 08-05-2023 Hemoglobin (Bld) [Mass/Vol] 12.9 g/dL 12.0-15.0 [facility] Blood lymphocytes/100 leukoc ytesOrdered By: Niurka Kendall on 08-05-2023 Lymphocytes/100 WBC (Bld) 30.1 % 19-41 [facility] Blood monocytes/100 leukocyt esOrdered By: Niurka Kendall on 08-05-2023 Monocytes/100 WBC (Bld) 5.2 % 0-10 [facility] Blood platelet mean volumeOr dered By: iNurka Kendall on 08-05-2023 Platelet mean volume (Bld) [Entitic vol] 9.7 fL 6.2-12.0 [facility] COVID-19 virus antigen assay Ordered By: Niurka Kendall on 08-05-2023 SARS-CoV-2 (COVID-19) Ag IA.rapid Ql (Resp) [facility] SARS-CoV-2 (COVID-19) Ag IA.rapid Ql (Resp) [facility] Determination of erythrocyte mean corpuscular volume (MCV)Ordered By: Niurka Kendall on 08-05-2023 MCV (RBC) [Entitic vol] 97.8 fL 81-99 [facility] Glucose Glucometer (BldC) [M ass/Vol]Ordered By: Niurka Kendall on 08-05-2023 Glucose [Mass/Vol] 120 mg/dL 74-106 [facility] Comment on above: MANAGEMENT OF PATIEN T CARE PER NURSING PROTOCOL Hematocrit Auto (Bld) [Volum e fraction]Ordered By: Niurka Kendall on 08-05-2023 Hematocrit (Bld) [Volume fraction] 39.5 % 37-47 [facility] INR in Blood by Coagulation assayOrdered By: Niurka Kendall on 08-05-2023 INR Coag (Bld) [Relative time] 1.1 {INR} [facility] Laboratory - Chemistry and C hemistry - challengeOrdered By: Niurka Kendall on 08-05-2023 CO2 [Moles/Vol] 24.0 mmol/L 21.0-32.0 [facility] Urea nitrogen/Creatinine [Mass ratio] 20.8 mg/mg 10-20 [facility] Laboratory - CoagulationOrde red By: Niurka Kendall on 08-05-2023 aPTT Coag (Bld) [Time] 32.7 s 24.1-36.2 [facility] PT Coag (PPP) [Time] 14.4 s 11.7-14.9 [facility] Laboratory - Hematology and Cell countsOrdered By: Niurka Kendall on 08-05-2023 Erythrocyte distribution width (RBC) [Entitic vol] 47.0 fL 35.1-43.9 [facility] Erythrocyte distribution width (RBC) [Ratio] 13.1 % 11.6-14.6 [facility] Immature granulocytes/100 WBC (Bld) 1.300 % 0.0-0.9 [facility] Comment on above: IG% - Immature Granu locytes (promyelocytes, myelocytes and metamyelocytes) > 1% indicates that a LEFT SHIFT is Present. MCH (RBC) [Entitic mass] 31.9 pg 27.0-32.0 [facility] Nucleated RBC/100 WBC (Bld) [Ratio] 0 % 0-5 [facility] MCHC Auto (RBC) [Mass/Vol]Or dered By: Niurka Kendall on 08-05-2023 MCHC (RBC) [Mass/Vol] 32.7 g/dL 32-36 [facility] No Panel InformationOrdered By: Niurka Kendall on 08-05-2023 Estimated Creatinine Clearance Calc 99.99 ml/min [facility] Estimated GFR (MDRD) Amer 115 mL/min >60 [facility] Comment on above: GFR Calc Estimated GFR (MDRD) Non-Af Amer 95 mL/min >60 [facility] Comment on above: Non- GFR Calc Thyroid Stimulating Hormone (TSH) 1.54 uIU/mL 0.358-3.74 [facility] Troponin I High Sensitivity 4 pg/mL 3.0-54.0 [facility] Comment on above: Please Note: New Ananth t Units and Gender Specific Reference Ranges. For more information see Policy Stat Procedure [place] High Sensitivity Troponin (TNIH) and attachments. Platelets bldOrdered By: Romina Kendall on 08-05-2023 Platelets (Bld) [#/Vol] 190 10*3/uL 150-450 [facility] Serum or plasma calcium sharron urement (mass/volume)Ordered By: Niurka Kendall on 08-05-2023 Calcium [Mass/Vol] 8.5 mg/dL 8.5-10.1 [facility] Serum or plasma creatinine m easurement (mass/volume)Ordered By: Niurka Kendall on 08-05-2023 Creatinine [Mass/Vol] 0.72 mg/dL 0.55-1.02 [facility] Comment on above: The validity of the calculated GFR & GFRAA in patients over 70 years has not been determined. Clinical correlation is essential. Serum or plasma urea nitroge n measurement (mass/volume)Ordered By: Niurka Kendall on 08-05-2023 Urea nitrogen [Mass/Vol] 15 mg/dL 7-18 [facility] Thin prep Papanicolaou smear with manual screeningOrdered By: Niurka Kendall on 08-05-2023 Thin prep Papanicolaou smear with manual screening 6 5-15 [facility] Whole blood hemoglobin A1c/t otal hemoglobin ratio (mass fraction)Ordered By: Sosa Mendez on 08-05-2023 HbA1c (Bld) [Mass fraction] 6.6 % 3.8-5.6 [facility] Comment on above: Normal < 5.7 % Predi abetic 5.7 - 6.4 % Diabetic >or= 6.5 % Please note range changes. XR Foot - right AP and Later al and obliqueon 05-28-2023 IMPRESSION: No acute osseous abnormalities are identified. Calcaneal spurring. Senior Wealth Advisor: PSCB Transcribe Date/Time: May 28 2023 11:55A Dictated by : BRITTANY MCCANN MD This examination was interpreted and the report reviewed and electronically signed by: BRITTANY MCCANN MD on May 28 2023 11:56AM [facility] DIVISION OF RADIOLOGY * * *Final Report* [...] and calcaneal enthesophytes. DIVISION OF RADIOLOGY Provider, [facility] [place] - 05/28/2023 * * *Final Report* * [...] acute osseous abnormalities are identified. Calcaneal spurring. Senior Wealth Advisor: PSCB Transcribe Date/Time: May 28 2023 11:55A Dictated by : BRITTANY MCCANN MD This examination was interpreted and the report reviewed and electronically signed by: BRITTANY MCCANN MD on May 28 2023 11:56AM EST [facility] Radiology Study observation (narrative) [facility] XR Foot - right AP and Later al and obliqueOrdered By: Ccf Provider on 05-28-2023 [facility] Absolute lymphocyte countOrd ered By: Dr. Grimes on 03-04-2023 Lymphocytes Auto (Unsp spec) [#/Vol] 2.34 10*3/uL 0.83-4.51 [facility] Basophil percentageOrdered B y: Dr. Grimes on 03-04-2023 Basophils/100 WBC (Bld) 1.0 % 0-1 [facility] Chloride [Moles/Vol] 109 mmol/L 98-107 [facility] Eosinophils/100 WBC (Bld) 2.3 % 0-5 [facility] Glucose [Mass/Vol] 142 mg/dL 74-106 [facility] Comment on above: Fasting Glucose resu lt greater than or equal to 126 mg/dL suggests DIABETES MELLITUS per A.D.A. criteria. Neutrophils (Bld) [#/Vol] 5.6 10*3/uL 2.0-7.7 [facility] Neutrophils/100 WBC (Bld) 63.9 % 47-70 [facility] Potassium [Moles/Vol] 3.9 mmol/L 3.5-5.1 [facility] Sodium [Moles/Vol] 138 mmol/L 136-145 [facility] WBC (Bld) [#/Vol] 8.8 10*3/uL 4.4-11.0 [facility] Blood erythrocytes count (nu mber/volume)Ordered By: Dr. Grimes on 03-04-2023 RBC (Bld) [#/Vol] 4.38 10*6/uL 4.2-5.4 [facility] Blood hemoglobin measurement (mass/volume)Ordered By: Dr. Grimes on 03-04-2023 Hemoglobin (Bld) [Mass/Vol] 14.1 g/dL 12.0-15.0 [facility] Blood lymphocytes/100 leukoc ytesOrdered By: Dr. Grimes on 03-04-2023 Lymphocytes/100 WBC (Bld) 26.5 % 19-41 [facility] Blood monocytes/100 leukocyt esOrdered By: Dr. Grimes on 03-04-2023 Monocytes/100 WBC (Bld) 4.6 % 0-10 [facility] Blood platelet mean volumeOr dered By: Dr. Grimes on 03-04-2023 Platelet mean volume (Bld) [Entitic vol] 9.5 fL 6.2-12.0 [facility] Determination of erythrocyte mean corpuscular volume (MCV)Ordered By: Dr. Grimes on 03-04-2023 MCV (RBC) [Entitic vol] 96.8 fL 81-99 [facility] Hematocrit Auto (Bld) [Volum e fraction]Ordered By: Dr. Grimes on 03-04-2023 Hematocrit (Bld) [Volume fraction] 42.4 % 37-47 [facility] Iron measurement (mass/mass) Ordered By: Dr. Grimes on 03-04-2023 Iron (Unsp spec) [Mass/Mass] 92 ug/dL 50-170 [facility] Laboratory - Chemistry and C hemistry - challengeOrdered By: Dr. Grimes on 03-04-2023 CO2 [Moles/Vol] 21.0 mmol/L 21.0-32.0 [facility] Magnesium [Mass/Vol] 1.7 mg/dL 1.6-2.6 [facility] Urea nitrogen/Creatinine [Mass ratio] 17.1 mg/mg 10-20 [facility] Laboratory - Hematology and Cell countsOrdered By: Dr. Grimes on 03-04-2023 Erythrocyte distribution width (RBC) [Entitic vol] 48.1 fL 35.1-43.9 [facility] Erythrocyte distribution width (RBC) [Ratio] 13.3 % 11.6-14.6 [facility] Immature granulocytes/100 WBC (Bld) 1.700 % 0.0-0.9 [facility] Comment on above: IG% - Immature Granu locytes (promyelocytes, myelocytes and metamyelocytes) > 1% indicates that a LEFT SHIFT is Present. MCH (RBC) [Entitic mass] 32.2 pg 27.0-32.0 [facility] Nucleated RBC/100 WBC (Bld) [Ratio] 0 % 0-5 [facility] MCHC Auto (RBC) [Mass/Vol]Or dered By: Dr. Grimes on 03-04-2023 MCHC (RBC) [Mass/Vol] 33.3 g/dL 32-36 [facility] No Panel InformationOrdered By: Dr. Grimes on 03-04-2023 Urine Microalbumin/Creatinine Ratio 63.0 mg/g CRE <30 [facility] Estimated GFR (MDRD) Amer 99 mL/min >60 [facility] Comment on above: GFR Calc Estimated GFR (MDRD) Non-Af Amer 82 mL/min >60 [facility] Comment on above: Non- GFR Calc Total Iron Binding Capacity 323 ug/dL 250-450 [facility] Platelets bldOrdered By: Dr. Grimes on 03-04-2023 Platelets (Bld) [#/Vol] 214 10*3/uL 150-450 [facility] Serum or plasma calcium sharron urement (mass/volume)Ordered By: Dr. Grimes on 03-04-2023 Calcium [Mass/Vol] 8.4 mg/dL 8.5-10.1 [facility] Serum or plasma creatinine m easurement (mass/volume)Ordered By: Dr. Grimes on 03-04-2023 Creatinine [Mass/Vol] 0.82 mg/dL 0.55-1.02 [facility] Comment on above: The validity of the calculated GFR & GFRAA in patients over 70 years has not been determined. Clinical correlation is essential. Serum or plasma iron saturat ion measurement (mass fraction)Ordered By: Dr. Grimes on 03-04-2023 Iron saturation [Mass fraction] 28.5 % 15.0-55.0 [facility] Serum or plasma urea nitroge n measurement (mass/volume)Ordered By: Dr. Grimes on 03-04-2023 Urea nitrogen [Mass/Vol] 14 mg/dL 7-18 [facility] Thin prep Papanicolaou smear with manual screeningOrdered By: Dr. Grimes on 03-04-2023 Thin prep Papanicolaou smear with manual screening 133.0 mg/L NO RANGE EST. [facility] Thin prep Papanicolaou smear with manual screening 8 5-15 [facility] Urine creatinine measurement (mass/volume)Ordered By: Dr. Grimes on 03-04-2023 Creatinine (U) [Mass/Vol] 211.00 mg/dL NO RANGE EST. [facility] Whole blood hemoglobin A1c/t otal hemoglobin ratio (mass fraction)Ordered By: Dr. Grimes on 03-04-2023 HbA1c (Bld) [Mass fraction] 6.1 % 3.8-5.6 [facility] Comment on above: Normal < 5.7 % Predi abetic 5.7 - 6.4 % Diabetic >or= 6.5 % Please note range changes. No Panel Informationon 02-28 [facility] CNCOon 01-24-2023 CNCO Letter Text Normal [facility] CNOVon 01-24-2023 CNOV Office Visit (SPAGWO) ---- TORI GRAY ([id number]) 1980 F Date Time Provider Department 01/24/23 10:30 AM ELLE SANCHEZ During your visit today, we recorded the following information about you: Pulse Respiration Last Period 64/minute 16/minute 01/02/23 Elle Sanchez MD 01/24/2023 11:07 AM Signed 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 Normal [facility] CNPIliana 01-24-2023 CNPN Telephone (SPAGWO) ---- TORI GRAY ([id number]) 1980 F Date Time Provider Department 01/24/23 ELLE SANCHEZ SPAGWO During your visit today, we recorded the following information about you: Paknaj Lidia 01/24/2023 11:46 AM Signed 1.Are you [...] by INTRAUTERINE route as directed. - Ipratropium [place] (ATROVENT) 0.03 % nasal spray Use 2 Sprays in the nose every 12 hours. - metroNIDAZOLE (METROGEL) 0.75 % Topical Gel Apply to affected area twice daily. - [place]-3 Fatty Acids (FISH OIL) 500 mg cap Take 1 capsule by mouth once daily. - blood sugar diagnostic (BLOOD GLUCOSE TEST) test strip Test blood sugar(s) 1 times daily. Dx: Type 2 DM - Controlled E11.9 Insulin: Yes - Lancets lancets Test blood sugar(s) 1 times daily. Dx: Type 2 DM - Controlled E11.9 Insulin: No - Zjagwstc-Fr-Xwo-Fe- FA tab Take 1 tablet by mouth [...] 05/06/2009 01/23/2010 Routine general medical examination at [facility]*01/23/2010 12/06/2012 Class: Chronic Routine gynecological examination [Z01.419] 01/23/2010 02/22/2014 Class: Chronic Morbid Obesity [E66.01] 01/23/2010 Lumbar Disc Disorder [M51.9] 02/16/2010 (more content not included)... Normal [facility] HCG ( test) Ql (U)o n 01-02-2023 Specific gravity (U) [Rel density] 1.010 Normal 1.005-1.030 [facility] Comment on above: Order Comment: Speci men Type: URINE SPECIMENOrdering Facility: [facility] Address: [address] [place] [address] Performed By: #### 2 106-3 ####[facility] LABIA [id number] [place] [id number] [facility] HCG Preg Ur Qlon 01-02-2023 HCG ( test) Ql (U) Negative Normal Negative [facility] Comment on above: Order Comment: Speci men Type: URINE SPECIMENOrdering Facility: [facility] Address: [address] [place] [address] Result Comment: This test is intended to aid in the early detection of . Very dilute urine samples, as indicated by a low specific gravity, may not contain open claims representative levels of hCG. This test detects [...] for . Performed By: #### 2 106-3 ####[facility] LABIA [id number] [place] [id number] [facility] HISTORY PHYSICALon 3 HISTORY PHYSICAL HNO ID: [id number] Author: Elle Sanchez MD Service: Pain Management [...] 1/2 hr before meal. Unknown Yes Ipratropium [place] (ATROVENT) 0.03 % nasal spray Use 2 Sprays in the nose every 12 hours. Unknown Yes [place]-3 Fatty Acids (FISH OIL) 500 mg cap Take 1 capsule by mouth once daily. Patient taking differently: Take 1 tablet by mouth once daily. 1200 mg 01/02/2023 Yes blood sugar diagnostic (BLOOD GLUCOSE TEST) test strip Test blood sugar(s) 1 times daily. Dx: Type 2 DM - Controlled E11.9 Insulin: Yes Yes Xokqojkk-Tt-Abn-Fe- FA tab Take 1 tablet by mouth [...] 2023 TIME: 11:00 AM Normal [facility] OPERATIVE NOon 01-02-2023 OPERATIVE NO HNO ID: [id number] Author: Elle Sanchez MD Service: Pain Management Author Type: Physician Type: Operative Report Filed: 01/02/2023 11:29 AM Note Text: OPERATIVE/PROCEDURE REPORT LOG ID: [id number] SURGERY/PROCEDURE DATE: 01/02/2023 INCISION/PROCEDURE START TIME: 11:18 AM INCISION CLOSE/PROCEDURE END TIME: 11:25 AM SURGEON(S)/PROCEDUR KAYST(S) AND LOGGING SUPERVISOR(S): Surgeon(s) and Role: * Elle Sanchez MD [...] 2023 TIME: 11:28 AM Normal [facility] CNPIliana 11-29-2022 CNPN Telephone (AGSPINE3) ---- TORI GRAY ([id number]) 1980 F Date Time Provider Department 11/29/22 ELLE SANCHEZ AGSPINE3 During your visit today, we recorded the following information about you: Darrion Carson 11/29/2022 2:40 PM Signed Patient has left a voicemail stating that she had fallen over the weekend and has a concussion. She is wondering if she should reschedule her appointment for 12/05/22 with you in [place] as she is not sure if this [...] to reschedule out to January 02 at [place], message has been sent to [place]. Darrion Shah Allergies As of Date: 11/29/2022 Noted Allergy Reaction LIDOCAINE 12/24/2019 4 - Hives STEROIDS (BETAMETHASONE DIPROPION* 2 4 - Hives Date Reviewed: 11/27/2022 Reviewed by: Dennise Robles - Fully Assessed Reason for Visit: Patient Question [4557] Cmt: [place] appointment on 12/05/22 Prescriptions as of 11/30/2022 [...] by INTRAUTERINE route as directed. - Ipratropium [place] (ATROVENT) 0.03 % nasal spray Use 2 Sprays in the nose every 12 hours. - metroNIDAZOLE (METROGEL) 0.75 % Topical Gel Apply to affected area twice daily. - [place]-3 Fatty Acids (FISH OIL) 500 mg cap Take 1 capsule by mouth once daily. - blood sugar diagnostic (BLOOD GLUCOSE TEST) test strip Test blood sugar(s) 1 times daily. Dx: Type 2 DM - Controlled E11.9 Insulin: Yes - Lancets lancets Test blood sugar(s) 1 times daily. Dx: Type 2 DM - Controlled E11.9 Insulin: No - Ywfokpfp-An-Sdf-Fe- FA tab Take 1 tablet by mouth [...] 02/16/2010 Routine general medical examination at a [facility]*12/06/2012 02/22/2014 Anxiety [F41.9] 06/07/2014 Type 2 [...] (more content not included)... Normal [facility] Glucose Glucometer (BldC) [M ass/Vol]Ordered By: Dr. Shabazz on 11-24-2022 Glucose [Mass/Vol] 89 mg/dL 74-106 [facility] Comment on above: MANAGEMENT OF PATIEN T CARE PER NURSING PROTOCOL CNOVon 11-08-2022 CNOV Office Visit (SPAGWO) ---- TORI GRAY ([id number]) 1980 F Date Time Provider Department 11/08/22 [...] The patient is not nervous/anxious. Adelina Mason, THOM.PROJECTION ENGINEER 11/08/2022 1:55 PM Signed [facility] Today's Date: 11/08/2022 Last Visit: 07/19/22 Name: [...] activity was identified. 11/08/2022 by Adelina Mason APRN.PROJECTION ENGINEER Allergies: ALLERGIES Allergen Reactions Lidocaine Hives Steroids [...] (more content not included)... Normal [facility] CNPIliana 11-08-2022 CNPN Telephone (SPAGWO) ---- TORI GRAY ([id number]) 1980 F Date Time Provider Department 11/08/22 ELLE SANCHEZ During your visit today, we recorded the following information about you: Vito PaLidia 11/08/2022 2:06 PM Signed Procedure(s) being scheduled: [...] No 9. Does this procedure require a route driver? Yes If yes, has patient been notified that a route driver is needed and must be present [...] Date Reviewed: 11/08/2022 Reviewed by: Adelina Mason APRN.PROJECTION ENGINEER - Fully Assessed Reason for Visit: Injections [...] by INTRAUTERINE route as directed. - Ipratropium [place] (ATROVENT) 0.03 % nasal spray Use 2 Sprays in the nose every 12 hours. - metroNIDAZOLE (METROGEL) 0.75 % Topical Gel Apply to affected area twice daily. - [place]-3 Fatty Acids (FISH OIL) 500 mg cap Take 1 capsule by mouth once daily. - blood sugar diagnostic (BLOOD GLUCOSE TEST) test strip Test blood sugar(s) 1 times daily. Dx: Type 2 DM - Controlled E11.9 Insulin: Yes - Lancets lancets Test blood sugar(s) 1 times daily. Dx: Type 2 DM - Controlled E11.9 Insulin: No - Hrnsiapu-No-Giz-Fe- FA tab Take 1 tablet by mouth [...] 01/23/2010 Routine general medical examination at a [facility]*01/23/2010 12/06/2012 Class: Chronic Routine gynecological examination [Z01.419] 01/23/2010 02/22/2014 Class: Chronic Morbid Obesity [E66.01] 01/23/2010 Lumbar (more content not included)... Normal [facility] TORI GRAY ([id number]) 1980 F Date Time Provider Department 10/02/22 [...] spoke with and scheduled with Adelina in [place] beginning of the year. Adriana Licona Allergies As of Date: 10/02/2022 Noted Allergy Reaction LIDOCAINE 12/24/2019 4 - Hives STEROIDS (BETAMETHASONE DIPROPION* 2 4 - Hives Date Reviewed: 09/04/2022 Reviewed by: Dennise Robles - Fully Assessed Reason for Visit: Appointment [[id number]] Patient Question [8497] Prescriptions as of 10/02/2022 - tiZANidine (ZANAFLEX) [...] bed with current PAP mask. - Ipratropium [place] (ATROVENT) 0.03 % nasal spray Use 2 Sprays in the nose every 12 hours. - metroNIDAZOLE (METROGEL) 0.75 % Topical Gel Apply to affected area twice daily. - [place]-3 Fatty Acids (FISH OIL) 500 mg cap Take 1 capsule by mouth once daily. - blood sugar diagnostic (BLOOD GLUCOSE TEST) test strip Test blood sugar(s) 1 times daily. Dx: Type 2 DM - Controlled E11.9 Insulin: Yes - Lancets lancets Test blood sugar(s) 1 times daily. Dx: Type 2 DM - Controlled E11.9 Insulin: No - Ndlzobgi-Xf-Bsn-Fe- FA tab Take 1 tablet by mouth [...] 05/06/2009 01/23/2010 Routine general medical examination at [facility]*01/23/2010 12/06/2012 Class: Chronic Routine gynecological examination [Z01.419] 01/23/2010 02/22/2014 Class: Chronic Morbid Obesity [E66.01] 01/23/2010 Lumbar Disc Disorder [M51.9] 02/16/2010 Routine general medical examination at [facility]*12/06/2012 02/22/2014 Anxiety [F41.9] 06/07/2014 Type 2 [...] (more content not included)... Normal [facility] Absolute lymphocyte countOrd ered By: Dr. Grimes on 09-06-2022 Lymphocytes Auto (Unsp spec) [#/Vol] 2.67 10*3/uL 0.83-4.51 [facility] Basophil percentageOrdered B y: Dr. Grimes on 09-06-2022 Basophils/100 WBC (Bld) 0.5 % 0-1 [facility] Chloride [Moles/Vol] 110 mmol/L 98-107 [facility] Eosinophils/100 WBC (Bld) 2.1 % 0-5 [facility] Glucose [Mass/Vol] 120 mg/dL 74-106 [facility] Comment on above: Fasting Glucose resu lt from 100 to 125 mg/dL suggests IMPAIRED HOMEOSTASIS per A.D.A. criteria. Neutrophils (Bld) [#/Vol] 6.2 10*3/uL 2.0-7.7 [facility] Neutrophils/100 WBC (Bld) 64.2 % 47-70 [facility] Potassium [Moles/Vol] 3.6 mmol/L 3.5-5.1 [facility] Sodium [Moles/Vol] 139 mmol/L 136-145 [facility] WBC (Bld) [#/Vol] 9.6 10*3/uL 4.4-11.0 [facility] Blood erythrocytes count (nu mber/volume)Ordered By: Dr. Grimes on 09-06-2022 RBC (Bld) [#/Vol] 4.29 10*6/uL 4.2-5.4 [facility] Blood hemoglobin measurement (mass/volume)Ordered By: Dr. Grimes on 09-06-2022 Hemoglobin (Bld) [Mass/Vol] 13.6 g/dL 12.0-15.0 [facility] Blood lymphocytes/100 leukoc ytesOrdered By: Dr. Grimes on 09-06-2022 Lymphocytes/100 WBC (Bld) 27.8 % 19-41 [facility] Blood monocytes/100 leukocyt esOrdered By: Dr. Grimes on 09-06-2022 Monocytes/100 WBC (Bld) 4.3 % 0-10 [facility] Blood platelet mean volumeOr dered By: Dr. Grimes on 09-06-2022 Platelet mean volume (Bld) [Entitic vol] 9.6 fL 6.2-12.0 [facility] Determination of erythrocyte mean corpuscular volume (MCV)Ordered By: Dr. Grimes on 09-06-2022 MCV (RBC) [Entitic vol] 90.2 fL 81-99 [facility] Hematocrit Auto (Bld) [Volum e fraction]Ordered By: Dr. Grimes on 09-06-2022 Hematocrit (Bld) [Volume fraction] 38.7 % 37-47 [facility] Laboratory - Chemistry and C hemistry - challengeOrdered By: Dr. Grimes on 09-06-2022 CO2 [Moles/Vol] 23.0 mmol/L 21.0-32.0 [facility] Urea nitrogen/Creatinine [Mass ratio] 15.9 mg/mg 10-20 [facility] Laboratory - Hematology and Cell countsOrdered By: Dr. Grimes on 09-06-2022 Erythrocyte distribution width (RBC) [Entitic vol] 42.5 fL 35.1-43.9 [facility] Erythrocyte distribution width (RBC) [Ratio] 12.9 % 11.6-14.6 [facility] Immature granulocytes/100 WBC (Bld) 1.100 % 0.0-0.9 [facility] Comment on above: IG% - Immature Granu locytes (promyelocytes, myelocytes and metamyelocytes) > 1% indicates that a LEFT SHIFT is Present. MCH (RBC) [Entitic mass] 31.7 pg 27.0-32.0 [facility] Nucleated RBC/100 WBC (Bld) [Ratio] 0 % 0-5 [facility] MCHC Auto (RBC) [Mass/Vol]Or dered By: Dr. Grimes on 09-06-2022 MCHC (RBC) [Mass/Vol] 35.1 g/dL 32-36 [facility] No Panel InformationOrdered By: Dr. Grimes on 09-06-2022 Estimated GFR (MDRD) Amer 100 mL/min >60 [facility] Comment on above: GFR Calc Estimated GFR (MDRD) Non-Af Amer 82 mL/min >60 [facility] Comment on above: Non- GFR Calc Thyroid Stimulating Hormone (TSH) 1.56 uIU/mL 0.358-3.74 [facility] Platelets bldOrdered By: Dr. Grimes on 09-06-2022 Platelets (Bld) [#/Vol] 190 10*3/uL 150-450 [facility] Serum or plasma calcium sharron urement (mass/volume)Ordered By: Dr. Grimes on 09-06-2022 Calcium [Mass/Vol] 8.7 mg/dL 8.5-10.1 [facility] Serum or plasma creatinine m easurement (mass/volume)Ordered By: Dr. Grimes on 09-06-2022 Creatinine [Mass/Vol] 0.82 mg/dL 0.55-1.02 [facility] Comment on above: The validity of the calculated GFR & GFRAA in patients over 70 years has not been determined. Clinical correlation is essential. Serum or plasma urea nitroge n measurement (mass/volume)Ordered By: Dr. Grimes on 09-06-2022 Urea nitrogen [Mass/Vol] 13 mg/dL 7-18 [facility] Thin prep Papanicolaou smear with manual screeningOrdered By: Dr. Grimes on 09-06-2022 Thin prep Papanicolaou smear with manual screening 6 5-15 [facility] Laboratory - Chemistry and C hemistry - challengeOrdered By: Dr. Guerrero on 08-29-2022 Magnesium [Mass/Vol] 1.7 mg/dL 1.6-2.6 [facility] Basophil percentageOrdered B y: Dr. Grimes on 08-08-2022 Cholesterol [Mass/Vol] 168 mg/dL <200 [facility] Comment on above: <200 mg/dL Desirable 200-240 mg/dL Borderline >240 mg/dL High Risk Triglyceride [Mass/Vol] 176 mg/dL <199 [facility] Comment on above: The drugs N-Acetylcy steine and Metamizole may falsely depress this assay.Serum Triglycerides Reference Interval Normal <150 mg/dL Borderline high 150 - 199 mg/dL High 200 - 499 mg/dL Very High > or = 500 mg/dL Hany 08-08-2022 GABRIELAN Telephone (AGSPHWG) ---- TORI GRAY ([id number]) 1980 F Date Time Provider Department 08/08/22 ADELINA MASON During your visit today, we recorded the following information about you: Adelina Mason APRN.PROJECTION ENGINEER 08/08/2022 12:55 PM Signed Please advise patient insurance will not approve the RFA of her shoulder. Another option would be to repeat the LEFT scapular NB, but with steroids for a therapeutic effect. If she would like to proceed with this option please let me know and will place the order. Thank you, Adelina Mason APRN.PROJECTION ENGINEER Pankaj Murillo 08/10/2022 2:13 PM Signed Left patient a detailed message informing her of this information. Also left the number for her to call back. Allergies As of Date: 08/08/2022 Noted Allergy Reaction LIDOCAINE 12/24/2019 4 - Hives STEROIDS (BETAMETHASONE DIPROPION* 2 4 - Hives Date Reviewed: 07/19/2022 Reviewed by: Karen Bansal APRN.PROJECTION ENGINEER - Fully Assessed Reason for Visit: Patient [...] bed with current PAP mask. - Ipratropium [place] (ATROVENT) 0.03 % nasal spray Use 2 Sprays in the nose every 12 hours. - metroNIDAZOLE (METROGEL) 0.75 % Topical Gel Apply to affected area twice daily. - [place]-3 Fatty Acids (FISH OIL) 500 mg cap Take 1 capsule by mouth once daily. - blood sugar diagnostic (BLOOD GLUCOSE TEST) test strip Test blood sugar(s) 1 times daily. Dx: Type 2 DM - Controlled E11.9 Insulin: Yes - Lancets lancets Test blood sugar(s) 1 times daily. Dx: Type 2 DM - Controlled E11.9 Insulin: No - Drrjzhni-Fw-Qnx-Fe- FA tab Take 1 tablet by mouth [...] 05/06/2009 01/23/2010 Routine general medical examination at [facility]*01/23/2010 12/06/2012 Class: Chronic Routine gynecological examination [Z01.419] 01/23/2010 02/22/2014 Class: Chronic Morbid Obesity [E66.01] 01/23/2010 Lumbar Disc Disorder [M51.9] 02/16/2010 Routine general medical examination at [facility]*12/06/2012 02/22/2014 Anxiety [F41.9] 06/07/2014 Type 2 diabetes mellitus with microalbuminuria,*0 07/04/2018 Fatty liver [K76.0] 07/21/2018 LETITIA (obstructive sleep apnea) [G47.33] 07/21/2018 Microalbuminuria [R80.9] 09/30/2018 Obesity, Class III, BMI >= 40 [E66.01] 11/26/2019 Prolonged Q-T interval on ECG [R94.31] 03/31/2020 Encounter Status:Closed by ADELINA MASON on 08/08/22 [facility] No Panel InformationOrdered By: Dr. Grimes on 08-08-2022 Thyroid Stimulating Hormone (TSH) 3.38 uIU/mL 0.358-3.74 [facility] Serum or plasma cholesterol in HDL measurement (mass/volume)Ordered By: Dr. Grimes on 08-08-2022 Cholesterol in HDL [Mass/Vol] 37 mg/dL >40 [facility] Comment on above: The drugs N-Acetylcy steine and Metamizole may falsely depress this assay. Reference Range HDL <40 mg/dL Low HDL Cholesterol HDL >or= 60 mg/dL High HDL Cholesterol Serum or plasma cholesterol in VLDL measurement (mass/volume)Ordered By: Dr. Grimes on 08-08-2022 Cholesterol in VLDL [Mass/Vol] 35 mg/dL 5-40 [facility] Serum or plasma low density lipoprotein (LDL) cholesterol measurement (mass/volume)Ordered By: Dr. Grimes on 08-08-2022 Cholesterol in LDL [Mass/Vol] 96 mg/dL 0-130 [facility] Whole blood hemoglobin A1c/t otal hemoglobin ratio (mass fraction)Ordered By: Dr. Grimes on 08-08-2022 HbA1c (Bld) [Mass fraction] 5.3 % 3.8-5.6 [facility] Comment on above: Normal < 5.7 % Predi abetic 5.7 - 6.4 % Diabetic >or= 6.5 % Please note range changes. CNCOon 07-19-2022 CNCO Letter Text [facility] CNOVon 07-19-2022 CNOV Office Visit (SPAGWO) ---- TORI GRAY ([id number]) 1980 F Date Time Provider Department 07/19/22 [...] The patient is not nervous/anxious. Adelina Mason APRN.PROJECTION ENGINEER 07/19/2022 10:17 AM Signed [facility] [place] [facility] Today's Date: 07/19/2022 Last Visit: 05/24/22 [...] (A) 74 - 99 mg/dL Final Comment: Location:[facility], [address] [place] [address], [facility] The Accu-Chek Inform II glucose meter [...] IMPROVEMENT 05/09/22 LEFT suprascapular NB 75% Compliance: [facility] website checked and validated. All prescriptions have been APPROPRIATELY filled. No suspicious activity was identified. 07/19/2022 by Adelina Mason APRN.[facility] Last Drug screen: Not Applicable Risk Assessment: VAHE-7: (more content not included)... Normal [facility] CNPNon 07-19-2022 CNPN Telephone (SPAGWO) ---- TORI GRAY ([id number]) 1980 F Date Time Provider Department 07/19/22 [...] year? Yes If yes, [facility] and [facility] Records Release needs to [...] Date Reviewed: 07/19/2022 Reviewed by: Adelina Mason APRN.PROJECTION ENGINEER - Fully Assessed Reason for Visit: Patient [...] bed with current PAP mask. - Ipratropium [place] (ATROVENT) 0.03 % nasal spray Use 2 Sprays in the nose every 12 hours. - metroNIDAZOLE (METROGEL) 0.75 % Topical Gel Apply to affected area twice daily. - [place]-3 Fatty Acids (FISH OIL) 500 mg cap Take 1 capsule by mouth once daily. - blood sugar diagnostic (BLOOD GLUCOSE TEST) test strip Test blood sugar(s) 1 times daily. Dx: Type 2 DM - Controlled E11.9 Insulin: Yes - Lancets lancets Test blood sugar(s) 1 times daily. Dx: Type 2 DM - Controlled E11.9 Insulin: No - Uisgwbwa-Ds-Mmm-Fe- FA tab Take 1 tablet by mouth [...] 05/06/2009 01/23/2010 Routine general medical examination at [facility]*01/23/2010 12/06/2012 Class: Chronic Routine gynecological examination [Z01.419] 01/23/2010 02/22/2014 Class: Chronic Morbid Obesity [E66.01] 01/23/2010 Lumbar Disc Disorder [M51.9] 02/16/2010 Routine general medical examination at [facility]*12/06/2012 02/22/2014 Anxiety [F41.9] 06/07/2014 Type 2 diabetes mellitus with microalbuminuria,*0 07/04/2018 Fatty liver [K76.0] 07/21/2018 LETITIA (obstructive sleep apnea) [G47 (more content not included)... Normal [facility] Absolute lymphocyte counton 06-05-2022 Lymphocytes Auto (Unsp spec) [#/Vol] 2.26 10*3/uL 0.83-4.51 [facility] Work Phone: Absolute reticulocyte counto n 06-05-2022 Reticulocytes (Bld) [#/Vol] 0.00 10*3/uL 0-5 [facility] Work Phone: Basophil percentageon 2021 Basophil percentage 3.4 mg/dL 2.5-4.9 [facility] Work Phone: Bilirubin [Mass/Vol] 0.60 mg/dL 0.20-1.00 [facility] Work Phone: Comment on above: For patients on eltr ombopag therapy, use of Dimension [place] TBIL is not recommended. Chloride [Moles/Vol] 108 mmol/L 98-107 [facility] Work Phone: Cholesterol [Mass/Vol] 180 mg/dL <200 [facility] Work Phone: Comment on above: <200 mg/dL Desirable 200-240 mg/dL Borderline >240 mg/dL High Risk Glucose [Mass/Vol] 100 mg/dL 74-106 [facility] Work Phone: Comment on above: Fasting Glucose resu lt from 100 to 125 mg/dL suggests IMPAIRED HOMEOSTASIS per A.D.A. criteria. Neutrophils (Bld) [#/Vol] 5.5 10*3/uL 2.0-7.7 [facility] Work Phone: Potassium [Moles/Vol] 3.6 mmol/L 3.5-5.1 [facility] Work Phone: Protein [Mass/Vol] 8.2 g/dL 6.4-8.2 [facility] Work Phone: Sodium [Moles/Vol] 137 mmol/L 136-145 [facility] Work Phone: Triglyceride [Mass/Vol] 418 mg/dL <199 [facility] Work Phone: Comment on above: The drugs N-Acetylcy steine and Metamizole may falsely depress this assay. TRIGLYCERIDE IS GREATER THAN 400 mg/dL. LDL RESULT IS INVALID AND WILL NOT BE REPORTED.Serum Triglycerides Reference Interval Normal <150 mg/dL Borderline high 150 - 199 mg/dL High 200 - 499 mg/dL Very High > or = 500 mg/dL WBC (Bld) [#/Vol] 8.6 10*3/uL 4.4-11.0 [facility] Work Phone: Bilirubin Test strip Ql (U)o n 06-05-2022 Bilirubin Ql (U) Negative Negative [facility] Work Phone: Blood erythrocytes count (nu mber/volume)on 06-05-2022 RBC (Bld) [#/Vol] 4.49 10*6/uL 4.2-5.4 [facility] Work Phone: Blood hemoglobin measurement (mass/volume)on 06-05-2022 Hemoglobin (Bld) [Mass/Vol] 14.0 g/dL 12.0-15.0 [facility] Work Phone: Blood platelet mean volumeon 06-05-2022 Platelet mean volume (Bld) [Entitic vol] 9.2 fL 6.2-12.0 [facility] Work Phone: Determination of erythrocyte mean corpuscular volume (MCV)on 06-05-2022 MCV (RBC) [Entitic vol] 92.7 fL 81-99 [facility] Work Phone: Direct bilirubinon Bilirubin.direct [Mass/Vol] 0.11 mg/dL 0.00-0.30 [facility] Work Phone: Hematocrit Auto (Bld) [Volum e fraction]on 06-05-2022 Hematocrit (Bld) [Volume fraction] 41.6 % 37-47 [facility] Work Phone: Ketones Test strip Ql (U)on 06-05-2022 Ketones Ql (U) Negative Negative [facility] Work Phone: Laboratory - Chemistry and C hemistry - challengeon 06-05-2022 ALP [Catalytic activity/Vol] 73 U/L 45-117 [facility] Work Phone: ALT [Catalytic activity/Vol] 24 U/L 13-56 [facility] Work Phone: Cholesterol.total/Choles terol in HDL [Mass ratio] 5.50 {ratio} [facility] Work Phone: CO2 [Moles/Vol] 25.0 mmol/L 21.0-32.0 [facility] Work Phone: Globulin (S) [Mass/Vol] 4.1 g/dL 2.2-4.2 [facility] Work Phone: Urea nitrogen/Creatinine [Mass ratio] 16.6 mg/mg 10-20 [facility] Work Phone: Laboratory - Hematology and Cell countson 06-05-2022 Erythrocyte distribution width (RBC) [Entitic vol] 44.2 fL 35.1-43.9 [facility] Work Phone: Erythrocyte distribution width (RBC) [Ratio] 13.2 % 11.6-14.6 [facility] Work Phone: MCH (RBC) [Entitic mass] 31.2 pg 27.0-32.0 [facility] Work Phone: Nucleated RBC/100 WBC (Bld) [Ratio] 0 % 0-5 [facility] Work Phone: MCHC Auto (RBC) [Mass/Vol]on 06-05-2022 MCHC (RBC) [Mass/Vol] 33.7 g/dL 32-36 [facility] Work Phone: Nitrite Test strip Ql (U)on 06-05-2022 Nitrite Ql (U) Negative Negative [facility] Work Phone: No Panel Informationon 06-05 Estimated GFR (MDRD) Amer 115 mL/min >60 [facility] Work Phone: Comment on above: GFR Calc Estimated GFR (MDRD) Non-Af Amer 95 mL/min >60 [facility] Work Phone: Comment on above: Non- GFR Calc Platelets bldon 06-05-2022 Platelets (Bld) [#/Vol] 200 10*3/uL 150-450 [facility] Work Phone: Protein Test strip Ql (U)on 06-05-2022 Protein Ql (U) 15 mg/dl Negative [facility] Work Phone: Segmented neutrophils/100 WB C Auto (Bld)on 06-05-2022 Segmented neutrophils/100 WBC (Bld) 64.3 % 47-70 [facility] Work Phone: Serum or plasma albumin sharron urement (mass/volume)on 06-05-2022 Albumin [Mass/Vol] 4.1 g/dL 3.2-5.0 [facility] Work Phone: Serum or plasma albumin/glob ulin mass ratioon 06-05-2022 Albumin/Globulin [Mass ratio] 1.0 {ratio} 0.9-2.4 [facility] Work Phone: Serum or plasma calcium sharron urement (mass/volume)on 06-05-2022 Calcium [Mass/Vol] 8.7 mg/dL 8.5-10.1 [facility] Work Phone: Serum or plasma cholesterol in HDL measurement (mass/volume)on 06-05-2022 Cholesterol in HDL [Mass/Vol] 33 mg/dL >40 [facility] Work Phone: Comment on above: The drugs N-Acetylcy steine and Metamizole may falsely depress this assay. Reference Range HDL <40 mg/dL Low HDL Cholesterol HDL >or= 60 mg/dL High HDL Cholesterol Serum or plasma cholesterol in VLDL measurement (mass/volume)on 06-05-2022 Cholesterol in VLDL [Mass/Vol] TNP [facility] Work Phone: Comment on above: Test not performed Serum or plasma creatinine m easurement (mass/volume)on 06-05-2022 Creatinine [Mass/Vol] 0.72 mg/dL 0.55-1.02 [facility] Work Phone: Comment on above: The validity of the calculated GFR & GFRAA in patients over 70 years has not been determined. Clinical correlation is essential. Serum or plasma low density lipoprotein (LDL) cholesterol measurement (mass/volume)on 06-05-2022 Cholesterol in LDL [Mass/Vol] TNP [facility] Work Phone: Comment on above: Test not performed Serum or plasma urea nitroge n measurement (mass/volume)on 06-05-2022 Urea nitrogen [Mass/Vol] 12 mg/dL 7-18 [facility] Work Phone: Serum or plasma uric acid me asurement (mass/volume)on 06-05-2022 Urate [Mass/Vol] 5.6 mg/dL 2.6-6.0 [facility] Work Phone: Comment on above: The drugs N-Acetylcy steine and Metamizole may falsely depress this assay. Thin prep Papanicolaou smear with manual screeningon 06-05-2022 Thin prep Papanicolaou smear with manual screening 14 U/L 15-37 [facility] Work Phone: Thin prep Papanicolaou smear with manual screening 4 5-15 [facility] Work Phone: Thin prep Papanicolaou smear with manual screening 152 U/L 84-246 [facility] Work Phone: Urine blood detectionon RBC Ql (U) Negative Negative [facility] Work Phone: Urine clarityon 06-05-2022 Clarity (U) Sl. Cloudy Clear [facility] Work Phone: Urine color determinationon 06-05-2022 Color (U) Yellow Yellow [facility] Work Phone: Urine glucose detectionon Glucose Ql (U) Normal mg/dl Normal [facility] Work Phone: Urine leukocyte esterase det ection by dipstickon 06-05-2022 Leukocyte esterase Test strip Ql (U) 500 /ul Negative [facility] Work Phone: Urine pHon 06-05-2022 pH (U) 5.0 [pH] 5.0 - 8.0 [facility] Work Phone: Urine specific gravity measu rementon 06-05-2022 Specific gravity (U) [Rel density] 1.020 1.002-1.030 [facility] Work Phone: Urobilinogen Auto test strip Ql (U)on 06-05-2022 Urobilinogen Ql (U) Normal mg/dl Normal [facility] Work Phone: CNOVon 05-24-2022 CNOV Office Visit (SPAGWO) ---- TORI GRAY ([id number]) 1980 F Date Time Provider Department 05/24/22 [...] The patient is not nervous/anxious. Adelina Mason APRN.PROJECTION ENGINEER 05/24/2022 10:08 PM Signed 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 Normal [facility] CNPIliana 05-11-2022 CNPN Telephone (AGSPHWG) ---- TORI GRAY ([id number]) 1980 F Date Time Provider Department 05/11/22 [...] bed with current PAP mask. - Ipratropium [place] (ATROVENT) 0.03 % nasal spray Use 2 Sprays in the nose every 12 hours. - metroNIDAZOLE (METROGEL) 0.75 % Topical Gel Apply to affected area twice daily. - [place]-3 Fatty Acids (FISH OIL) 500 mg cap Take 1 capsule by mouth once daily. - blood sugar diagnostic (BLOOD GLUCOSE TEST) test strip Test blood sugar(s) 1 times daily. Dx: Type 2 DM - Controlled E11.9 Insulin: Yes - Lancets lancets Test blood sugar(s) 1 times daily. Dx: Type 2 DM - Controlled E11.9 Insulin: No - Pusgqguw-Mq-Rpc-Fe- FA ( FORMULA) ORAL Tab Take 1 [...] 05/06/2009 01/23/2010 Routine general medical examination at [facility]*01/23/2010 12/06/2012 Class: Chronic Routine gynecological examination [Z01.419] 01/23/2010 02/22/2014 Class: Chronic Morbid Obesity [E66.01] 01/23/2010 Lumbar Disc Disorder [M51.9] 02/16/2010 Routine general medical examination at [facility]*12/06/2012 02/22/2014 Anxiety [F41.9] 06/07/2014 Type 2 diabetes mellitus with microalbuminuria,*0 07/04/2018 Fatty liver [K76.0] 07/21/2018 LETITIA (obstructive sleep apnea) [G47.33] 07/21/2018 Microalbuminuria [R80.9] 09/30/2018 Obesity, Class III, BMI >= 40 [E66.01] 11/26/2019 Prolonged Q-T interval on ECG [R94.31] 03/31/2020 Encounter Status:Closed by LIVIA LUNA on 05/11/22 [facility] GLUCOSE, BLOOD (POC)on 05-10 Glucose [Mass/Vol] 104 mg/dL Abnormal 74 - 99 mg/dL [facility] CNCOon 03-29-2022 CNCO Letter Text Normal [facility] CNOVon 03-29-2022 CNOV Office Visit (SPAGWO) ---- TORI GRAY ([id number]) 1980 F Date Time Provider Department 03/29/22 11:00 AM ELLE SANCHEZ During your visit today, we recorded the following information about you: Pulse Respiration Normal [facility] CNPNon 03-29-2022 CNPN Telephone (SPAGWO) ---- TORI GRAY ([id number]) 1980 F Date Time Provider Department 03/29/22 [...] bed with current PAP mask. - Ipratropium [place] (ATROVENT) 0.03 % nasal spray Use 2 Sprays in the nose every 12 hours. - metroNIDAZOLE (METROGEL) 0.75 % Topical Gel Apply to affected area twice daily. - [place]-3 Fatty Acids (FISH OIL) 500 mg cap Take 1 capsule by mouth once daily. - blood sugar diagnostic (BLOOD GLUCOSE TEST) test strip Test blood sugar(s) 1 times daily. Dx: Type 2 DM - Controlled E11.9 Insulin: Yes - Lancets lancets Test blood sugar(s) 1 times daily. Dx: Type 2 DM - Controlled E11.9 Insulin: No - Bpucdzpt-Pl-Znt-Fe- FA ( FORMULA) ORAL Tab Take 1 [...] 01/23/2010 Routine general medical examination at a [facility]*01/23/2010 12/06/2012 Class: Chronic Routine gynecological examination [Z01.419] 01/23/2010 02/22/2014 Class: Chronic Morbid Obesity [E66.01] 01/23/2010 Lumbar Disc Disorder [M51.9] 02/16/2010 Routine general medical examination at a [facility]*12/06/2012 02/22/2014 Anxiety [F41.9] 06/07/2014 Type 2 diabetes mellitus with microalbuminuria,*0 07/04/2018 Fatty liver [K76.0] 07/21/2018 LETITIA (obstructive sleep apnea) [G47.33] 07/21/2018 Microalbuminuria [R80.9] 09/30/2018 Obesity, Class III, BMI >= 40 [E66.01] 11/26/2019 Prolo (more content not included)... Normal [facility] Basophil percentageon 2021 Cholesterol [Mass/Vol] 178 mg/dL <200 [facility] Comment on above: <200 mg/dL Desirable 200-240 mg/dL Borderline >240 mg/dL High Risk Triglyceride [Mass/Vol] 183 mg/dL C [facility] Comment on above: The drugs N-Acetylcy steine and Metamizole may falsely depress this assay.Serum Triglycerides Reference Interval Normal <150 mg/dL Borderline high 150 - 199 mg/dL High 200 - 499 mg/dL Very High > or = 500 mg/dL Bilirubin [Mass/Vol] 0.30 mg/dL 0.20-1.00 [facility] Work Phone: Comment on above: For patients on eltr ombopag therapy, use of Dimension [place] TBIL is not recommended. Chloride [Moles/Vol] 109 mmol/L 98-107 [facility] Work Phone: Glucose [Mass/Vol] 126 mg/dL 74-106 [facility] Work Phone: Comment on above: Fasting Glucose resu lt greater than or equal to 126 mg/dL suggests DIABETES MELLITUS per A.D.A. criteria. Potassium [Moles/Vol] 4.1 mmol/L 3.5-5.1 [facility] Work Phone: Protein [Mass/Vol] 8.4 g/dL 6.4-8.2 [facility] Work Phone: Sodium [Moles/Vol] 136 mmol/L 136-145 [facility] Work Phone: WBC (Bld) [#/Vol] 9.6 10*3/uL 4.4-11.0 [facility] Work Phone: Blood erythrocytes count (nu mber/volume)on 02-07-2022 RBC (Bld) [#/Vol] 4.63 10*6/uL 4.2-5.4 [facility] Work [facility]: Blood hemoglobin measurement (mass/volume)on 02-07-2022 Hemoglobin (Bld) [Mass/Vol] 14.2 g/dL 12.0-15.0 [facility] Work Phone: Blood platelet mean volumeon 02-07-2022 Platelet mean volume (Bld) [Entitic vol] 9.5 fL 6.2-12.0 [facility] Work Phone: Determination of erythrocyte mean corpuscular volume (MCV)on 02-07-2022 MCV (RBC) [Entitic vol] 91.6 fL 81-99 [facility] Work Phone: Hematocrit Auto (Bld) [Volum e fraction]on 02-07-2022 Hematocrit (Bld) [Volume fraction] 42.4 % 37-47 [facility] Work Phone: LIPID PANEL (OUTSIDE)on VLDL Cholesterol 37 [facility] Laboratory - Chemistry and C hemistry - challengeon 02-07-2022 ALP [Catalytic activity/Vol] 87 U/L 45-117 [facility] Work Phone: ALT [Catalytic activity/Vol] 29 U/L 13-56 [facility] Work Phone: CO2 [Moles/Vol] 23.0 mmol/L 21.0-32.0 [facility] Work Phone: Globulin (S) [Mass/Vol] 4.3 g/dL 2.2-4.2 [facility] Work Phone: Magnesium [Mass/Vol] 1.7 mg/dL 1.6-2.6 [facility] Work Phone: Urea nitrogen/Creatinine [Mass ratio] 15.1 mg/mg 10-20 [facility] Work Phone: Laboratory - Hematology and Cell countson 02-07-2022 Erythrocyte distribution width (RBC) [Entitic vol] 43.8 fL 35.1-43.9 [facility] Work Phone: Erythrocyte distribution width (RBC) [Ratio] 13.2 % 11.6-14.6 [facility] Work Phone: MCH (RBC) [Entitic mass] 30.7 pg 27.0-32.0 [facility] Work Phone: MCHC Auto (RBC) [Mass/Vol]on 02-07-2022 MCHC (RBC) [Mass/Vol] 33.5 g/dL 32-36 [facility] Work Phone: MICROALBUMIN/CREATININE UR W RATIO (EXTERNAL)on 02-07-2022 Albumin/Creat Ratio 153.4 [facility] Creatinine Urine 189 [facility] Microalbumin, Random urine 290 [facility] No Panel Informationon 02-07 Urine Microalbumin/Creatinine Ratio 153.4 mg/g CRE <30 [facility] Work Phone: Estimated GFR (MDRD) Amer 114 mL/min >60 [facility] Work Phone: Comment on above: GFR Calc Estimated GFR (MDRD) Non-Af Amer 94 mL/min >60 [facility] Work Phone: Comment on above: Non- GFR Calc Thyroid Stimulating Hormone (TSH) 2.76 uIU/mL 0.358-3.74 [facility] Work Phone: Platelets bldon 02-07-2022 Platelets (Bld) [#/Vol] 223 10*3/uL 150-450 [facility] Work Phone: Serum or plasma albumin sharron urement (mass/volume)on 02-07-2022 Albumin [Mass/Vol] 4.1 g/dL 3.2-5.0 [facility] Work Phone: Serum or plasma albumin/glob ulin mass ratioon 02-07-2022 Albumin/Globulin [Mass ratio] 1.0 {ratio} 0.9-2.4 [facility] Work Phone: Serum or plasma calcium sharron urement (mass/volume)on 02-07-2022 Calcium [Mass/Vol] 8.8 mg/dL 8.5-10.1 [facility] Work Phone: Serum or plasma cholesterol in HDL measurement (mass/volume)on 02-07-2022 Cholesterol in HDL [Mass/Vol] 37 mg/dL [facility] Comment on above: The drugs N-Acetylcy steine and Metamizole may falsely depress this assay. Reference Range HDL <40 mg/dL Low HDL Cholesterol HDL >or= 60 mg/dL High HDL Cholesterol Serum or plasma cholesterol in VLDL measurement (mass/volume)on 02-07-2022 Cholesterol in VLDL [Mass/Vol] 37 mg/dL 5-40 [facility] Work Phone: Serum or plasma creatinine m easurement (mass/volume)on 02-07-2022 Creatinine [Mass/Vol] 0.73 mg/dL 0.55-1.02 [facility] Work Phone: Comment on above: The validity of the calculated GFR & GFRAA in patients over 70 years has not been determined. Clinical correlation is essential. Serum or plasma low density lipoprotein (LDL) cholesterol measurement (mass/volume)on 02-07-2022 Cholesterol in LDL [Mass/Vol] 104 mg/dL 0-130 [facility] Serum or plasma urea nitroge n measurement (mass/volume)on 02-07-2022 Urea nitrogen [Mass/Vol] 11 mg/dL 7-18 [facility] Work Phone: TSH (EXTERNAL)on 02-07-2022 TSH 2.76 IU/ml 0.2 - 5.6 IU/ml [facility] [facility] Papanicolaou smear with manual screeningon 02-07-2022 Thin prep Papanicolaou smear with manual screening 290.0 mg/L NO RANGE EST. [facility] Work Phone: Thin prep Papanicolaou smear with manual screening 13 U/L 15-37 [facility] Work Phone: Thin prep Papanicolaou smear with manual screening 4 5-15 [facility] Work Phone: Urine creatinine measurement (mass/volume)on 02-07-2022 Creatinine (U) [Mass/Vol] 189.00 mg/dL NO RANGE EST. [facility] Work Phone: Whole blood hemoglobin A1c/t otal hemoglobin ratio (mass fraction)on 02-07-2022 HbA1c (Bld) [Mass fraction] 5.1 % 3.8-5.6 [facility] Comment on above: Normal < 5.7 % Predi abetic 5.7 - 6.4 % Diabetic >or= 6.5 % Please note range changes. Hany 01-29-2022 CNPN Telephone ([id number]) ---- TORI RGAY ([id number]) 1980 F Date Time Provider Department 01/29/22 [...] patient by phone, Left brief message on [employer] stating to call and schedule. Darrion Carson [...] bed with current PAP mask. - Ipratropium [place] (ATROVENT) 0.03 % nasal spray Use 2 Sprays in the nose every 12 hours. - metroNIDAZOLE (METROGEL) 0.75 % Topical Gel Apply to affected area twice daily. - [place]-3 Fatty Acids (FISH OIL) 500 mg cap Take 1 capsule by mouth once daily. - blood sugar diagnostic (BLOOD GLUCOSE TEST) test strip Test blood sugar(s) 1 times daily. Dx: Type 2 DM - Controlled E11.9 Insulin: Yes - Lancets lancets Test blood sugar(s) 1 times daily. Dx: Type 2 DM - Controlled E11.9 Insulin: No - Hilfoalh-Er-Kxg-Fe- FA ( FORMULA) ORAL Tab Take 1 [...] 01/23/2010 Routine general medical examination at a [facility]*01/23/2010 12/06/2012 Class: Chronic Routine gynecological examination [Z01.419] 01/23/2010 02/22/2014 Class: Chronic Morbid Obesity [E66.01] 01/23/2010 Lumbar Disc Disorder [M51.9] 02/16/2010 Routine general medical examination at [facility]*12/06/2012 02/22/2014 Anxiety [F41.9] 06/07/2014 Type 2 diabetes mellitus with microalbuminuria,*0 07/04/2018 Fatty liver [K76.0] 07/21/2018 LETITIA (obstructive sleep apnea) [G47.33] 07/21/2018 Microalbuminuria [R80.9] 09/30/2018 Obesity, Class III, BMI >= 40 [E66.01] 11/26/2019 Prolonged Q-T interval on ECG [R94.31] 03/31/2020 Encounter Status:Closed by DARRION CARSON on 01/30/22 [facility] - Microbiology an d Antimicrobial susceptibilityon 11-21-2021 SARS-CoV-2 (COVID-19) RNA ALLYSON+probe Ql (Unsp spec) Not detected [facility] Work Phone: Office Visit: Jojo Removal, possible other optionson 09-09-2017 Documentation of current medications (procedure) Done Invalid Interpretation Code [facility] Fall risk assessment No Invalid Interpretation Code [facility] Tobacco smoking status NHIS Never Invalid Interpretation Code [facility] Tobacco use CPHS Never smoker Invalid Interpretation Code [facility] Office Visit: Spine Visit- L ow back pain [facility] 09-05-2017 Documentation of current medications (procedure) Done Invalid Interpretation Code [facility] Work Phone: Office Visit: Spine Visit- L ow back painon 09-03-2017 Documentation of current medications (procedure) Done Invalid Interpretation Code [facility] Work Phone: Office Visit: Spine Visit- L ow back [facility] 08-22-2017 Documentation of current medications (procedure) Done Invalid Interpretation Code [facility] Work Phone: Office Visiton 08-09-2017 Dietary management education, guidance, and counseling (procedure) yes Invalid Interpretation Code [facility] Work Phone: Tobacco smoking status NHIS Never Invalid Interpretation Code [facility] Work Phone: Tobacco use CPHS Never smoker Invalid Interpretation Code [facility] Work Phone: Office Visit: [facility]: low back painon 05-02-2017 Fall risk assessment No Invalid Interpretation Code [facility] Work Phone: Office Visit: Jojo Removal, possible other optionson 06-04-2014 General categories [Interpretation] of Cervical or vaginal smear or scraping by Cyto stain Normal Invalid Interpretation Code [facility] Vital Signs Date Time Vital Sign Value Performing Clinician Facility 06-23-2025 09:45-0400 Body temperature 96.6 [degF] Dr. Ivette Grimes MD Work Phone: [facility] 06-23-2025 09:45-0400 Diastolic blood pressure 60 mm[Hg] Dr. Ivette Grimes MD Work Phone: 2(553)755-183347 [address] 06-23-2025 09:45-0400 Heart rate 65 /min Dr. Ivette Grimes MD Work Phone: 2(517)615-707055 [place] [address] 06-23-2025 09:45-0400 Respiratory rate 16 /min Dr. Ivette Grimes MD Work Phone: 3(028)963-427855 [place] [address] 06-23-2025 09:45-0400 SaO2% (BldA) [Mass fraction] 95 % Dr. Ivette Grimes MD Work Phone: 1(798)092-893655 [place] [address] 06-23-2025 09:45-0400 Systolic blood pressure 112 mm[Hg] Dr. Ivette Grimes MD Work Phone: [facility] 06-23-2025 09:15-0400 Inhaled oxygen flow rate 2 L/min Dr. Ivette Grimes MD Work Phone: 3(798)[phone] [place] [address] 06-23-2025 06:40-0400 Body height 170.[address] Ivette Grimes MD Work Phone: [facility] 06-23-2025 06:40-0400 Body mass index (BMI) [Ratio] 43.4 kg/m2 Dr. Ivette Grimes MD Work Phone: [facility] 06-23-2025 06:40-0400 Body weight [address] Ivette Grimes MD Work Phone: [facility] 06-07-2025 18:27-0400 Body mass index (BMI) [Ratio] 44.26 kg/m2 Ivette Grimes MD Work Phone: [facility] 06-07-2025 18:27-0400 Body weight 128.19 kg Ivette Grimes MD Work Phone: [facility] 06-07-2025 18:27-0400 Diastolic blood pressure 80 mm[Hg] Ivette Grimes MD Work Phone: [facility] 06-07-2025 18:27-0400 Heart rate 78 /min Ivette Grimes MD Work Phone: [facility] 06-07-2025 18:27-0400 SaO2% (BldA) [Mass fraction] 98 % Ivette Grimes MD Work Phone: [facility] 06-07-2025 18:27-0400 Systolic blood pressure 132 mm[Hg] Ivette Grimes MD Work Phone: [facility] 05-06-2025 10:04-0400 Body height 170.[address] Ivette Grimes MD Work Phone: [facility] 05-06-2025 10:04-0400 Body mass index (BMI) [Ratio] 43 kg/m2 Dr. Ivette Grimes MD Work Phone: [facility] 05-06-2025 10:04-0400 Body weight 124.[address] Ivette Grimes MD Work Phone: [facility] 03-22-2025 09:08-0400 Body height 170.[address] Ivette Grimes MD Work Phone: [facility] 01-22-2025 15:43-0400 Body mass index (BMI) [Ratio] 44.17 kg/m2 Ivette Grimes MD Work Phone: [facility] 01-22-2025 15:43-0400 Body weight 127.91 kg Ivette Grimes MD Work Phone: [facility] 01-22-2025 15:43-0400 Diastolic blood pressure 72 mm[Hg] Ivette Grimes MD Work Phone: [facility] 01-22-2025 15:43-0400 Heart rate 77 /min Ivette Grimes MD Work Phone: [facility] 01-22-2025 15:43-0400 SaO2% (BldA) [Mass fraction] 97 % Ivette Grimes MD Work Phone: [facility] 01-22-2025 15:43-0400 Systolic blood pressure 122 mm[Hg] Ivette Grimes MD Work Phone: [facility] 12-11-2024 11:08-0500 Body mass index (BMI) [Ratio] 43.4 kg/m2 Jennifrank Albaradohof SEARCH DIRECTOR.PROJECTION ENGINEER Work Phone: [facility] 12-11-2024 11:08-0500 Body temperature 97.81 [degF] Jenni Tannhof SEARCH DIRECTOR.PROJECTION ENGINEER Work Phone: [facility] 12-11-2024 11:08-0500 Body weight 125.7 kg Jennifrank Albaradohof SEARCH DIRECTOR.PROJECTION ENGINEER Work Phone: [facility] 12-11-2024 11:08-0500 Diastolic blood pressure 74 mm[Hg] Jenni Tannhof SEARCH DIRECTOR.PROJECTION ENGINEER Work Phone: [facility] 12-11-2024 11:08-0500 Heart rate 72 /min Jenni Tannhof SEARCH DIRECTOR.PROJECTION ENGINEER Work Phone: [facility] 12-11-2024 11:08-0500 Respiratory rate 16 /min Jenni Tannhof SEARCH DIRECTOR.PROJECTION ENGINEER Work Phone: [facility] 12-11-2024 11:08-0500 SaO2% (BldA) [Mass fraction] 99 % Jenni Tannhof SEARCH DIRECTOR.PROJECTION ENGINEER Work Phone: [facility] 12-11-2024 11:08-0500 Systolic blood pressure 138 mm[Hg] Jenni Tannhof SEARCH DIRECTOR.PROJECTION ENGINEER Work Phone: 4(153)452-636442 [place] [address] 11-11-2024 12:34-0500 Heart rate 74 /min Dr. Ivette Grimes MD Work Phone: 7(037)686-482869 [place] [address] 11-11-2024 12:34-0500 Respiratory rate 20 /min Dr. Ivette Grimes MD Work Phone: 5(793)039-247869 [place] [address] 11-11-2024 12:34-0500 SaO2% (BldA) [Mass fraction] 100 % Dr. Ivette Grimes MD Work Phone: 7(575)202-821569 [place] [address] 11-11-2024 11:00-0500 Diastolic blood pressure 60 mm[Hg] Dr. Ivette Grimes MD Work Phone: 8(574)879-855369 [place] [address] 11-11-2024 11:00-0500 Systolic blood pressure 108 mm[Hg] Dr. Ivette Grimes MD Work Phone: 2(629)905-489369 [place] [address] 11-11-2024 05:55-0500 Body height 170.[address] Ivette Grimes MD Work Phone: 1(279)997-082169 [place] [address] 11-11-2024 05:55-0500 Body mass index (BMI) [Ratio] 45.2 kg/m2 Dr. Ivette Grimes MD Work Phone: 0(140)749-191169 [place] [address] 11-11-2024 05:55-0500 Body temperature 97.5 [degF] Dr. Ivette Girmes MD Work Phone: 6(397)239-942969 [place] [address] 11-11-2024 05:55-0500 Body weight [address] Ivette Grimes MD Work Phone: 1(033)896-734969 [place] [address] 10-16-2024 21:50-0500 Body temperature 98 [degF] Dr. Ivette Grimes MD Work Phone: 9(524)928-357069 [place] [address] 10-16-2024 21:50-0500 Diastolic blood pressure 72 mm[Hg] Dr. Ivette Grimes MD Work Phone: 8(308)147-136969 [place] [address] 10-16-2024 21:50-0500 Heart rate 60 /min Dr. Ivette Grimes MD Work Phone: [facility] 10-16-2024 21:50-0500 Respiratory rate 16 /min Dr. Ivette Grimes MD Work Phone: [facility] 10-16-2024 21:50-0500 SaO2% (BldA) [Mass fraction] 95 % Dr. Ivette Grimes MD Work Phone: [facility] 10-16-2024 21:50-0500 Systolic blood pressure 137 mm[Hg] Dr. Ivette Grimes MD Work Phone: [facility] 10-16-2024 20:23-0500 Body mass index (BMI) [Ratio] 43 kg/m2 Dr. Ivette Grimes MD Work Phone: [facility] 10-16-2024 20:23-0500 Body weight 124.[address] Ivette Grimes MD Work Phone: [facility] 09-03-2024 12:51-0400 Body height 170.2 cm Fatuma Robertser PA-C Work Phone: [facility] 09-03-2024 12:51-0400 Body mass index (BMI) [Ratio] 43.8 kg/m2 Fatuma Queener PA-C Work Phone: [facility] 09-03-2024 12:51-0400 Body weight 126.85 kg Fatuma Queener PA-C Work Phone: [facility] 09-03-2024 12:51-0400 Diastolic blood pressure 71 mm[Hg] Fatuma Queener PA-C Work Phone: [facility] 09-03-2024 12:51-0400 Heart rate 67 /min Fatuma Queener PA-C Work Phone: [facility] 09-03-2024 12:51-0400 SaO2% (BldA) [Mass fraction] 97 % Fatuma Queener PA-C Work Phone: [facility] 09-03-2024 12:51-0400 Systolic blood pressure 153 mm[Hg] Fatuma Beckford PA-C Work Phone: [facility] 08-05-2024 08:04-0400 Body mass index (BMI) [Ratio] 42.81 kg/m2 Ivette Grimes MD Work Phone: [facility] 08-05-2024 08:04-0400 Body weight 131.5 kg Ivette Grimes MD Work Phone: [facility] 08-05-2024 08:04-0400 Diastolic blood pressure 62 mm[Hg] Ivette Grimes MD Work Phone: [facility] 08-05-2024 08:04-0400 Heart rate 56 /min Ivette Grimes MD Work Phone: [facility] 08-05-2024 08:04-0400 SaO2% (BldA) [Mass fraction] 96 % Ivette Grimes MD Work Phone: [facility] 08-05-2024 08:04-0400 Systolic blood pressure 114 mm[Hg] Ivette Grimes MD Work Phone: [facility] 07-03-2024 15:29-0400 Body mass index (BMI) [Ratio] 41.94 kg/m2 Ivette Grimes MD Work Phone: [facility] 07-03-2024 15:29-0400 Body weight 128.82 kg Ivette Grimes MD Work Phone: [facility] 07-03-2024 15:29-0400 Diastolic blood pressure 82 mm[Hg] Ivette Grimes MD Work Phone: [facility] 07-03-2024 15:29-0400 Heart rate 78 /min Ivette Grimes MD Work Phone: [facility] 07-03-2024 15:29-0400 SaO2% (BldA) [Mass fraction] 98 % Ivette Grimes MD Work Phone: [facility] 07-03-2024 15:29-0400 Systolic blood pressure 152 mm[Hg] Ivette Grimes MD Work Phone: [facility] 04-02-2024 12:46-0400 Body height 175.3 cm Fatuma Beckford PA-C Work Phone: [facility] 04-02-2024 12:46-0400 Body mass index (BMI) [Ratio] 41.02 kg/m2 Fatuma Beckford PA-C Work Phone: [facility] 04-02-2024 12:46-0400 Body weight 126 kg Fatuma Beckford PA-C Work Phone: [facility] 04-02-2024 12:46-0400 Diastolic blood pressure 77 mm[Hg] Fatuma Beckford PA-C Work Phone: [facility] 04-02-2024 12:46-0400 Heart rate 59 /min Fatuma Beckford PA-C Work Phone: [facility] 04-02-2024 12:46-0400 SaO2% (BldA) [Mass fraction] 99 % Fatuma Beckford PA-C Work Phone: [facility] 04-02-2024 12:46-0400 Systolic blood pressure 135 mm[Hg] Fatuma Beckford PA-C Work Phone: [facility] 02-04-2024 04:03-0400 Body temperature 98 [degF] Dr. Ivette Grimes Work Phone: [facility] 02-04-2024 04:03-0400 Diastolic blood pressure 56 mm[Hg] Dr. Ivette Grimes Work Phone: [facility] 02-04-2024 04:03-0400 Heart rate 59 /min Dr. Ivette Grimes Work Phone: [facility] 02-04-2024 04:03-0400 Respiratory rate 16 /min Dr. Ivette Grimes Work Phone: [facility] 02-04-2024 04:03-0400 SaO2% (BldA) [Mass fraction] 100 % Dr. Ivette Grimes Work Phone: [facility] 02-04-2024 04:03-0400 Systolic blood pressure 107 mm[Hg] Dr. Ivette Grimes Work Phone: [facility] 02-04-2024 01:12-0400 Body height 170.[address] Ivette Grimes Work Phone: [facility] 02-04-2024 01:12-0400 Body mass index (BMI) [Ratio] 43 kg/m2 Dr. Ivette Grimes Work Phone: [facility] 02-04-2024 01:120400 Body weight 124.[address] Ivette Grimes Work Phone: [facility] 12-26-2023 10:10-0500 Body height 170.2 cm Fatuma Robertser PA-C Work Phone: [facility] 12-26-2023 10:10-0500 Body weight 123.35 kg Fatuma Robertser PA-C Work Phone: [facility] 12-26-2023 10:10-0500 Diastolic blood pressure 62 mm[Hg] Fatuma Robertser PA-C Work Phone: [facility] 12-26-2023 10:10-0500 Heart rate 68 /min Fatuma Robertser PA-C Work Phone: [facility] 12-26-2023 10:10-0500 Systolic blood pressure 118 mm[Hg] Fatuma Robertser PA-C Work Phone: [facility] 12-10-2023 05:52-0500 Body height 170.[address] Ivette Grimes Work Phone: [facility] 12-10-2023 05:52-0500 Body mass index (BMI) [Ratio] 42.3 kg/m2 Dr. Ivette Grimes Work Phone: [facility] 12-10-2023 05:52-0500 Body temperature 98 [degF] Dr. Ivette Grimes Work Phone: [facility] 12-10-2023 05:52-0500 Body weight 122.[address] Ivette Grimes Work Phone: [facility] 12-10-2023 05:52-0500 Diastolic blood pressure 61 mm[Hg] Dr. Ivette Grimes Work Phone: [facility] 12-10-2023 05:52-0500 Heart rate 68 /min Dr. Ivette Grimes Work Phone: [facility] 12-10-2023 05:52-0500 Respiratory rate 16 /min Dr. Ivette Grimes Work Phone: [facility] 12-10-2023 05:52-0500 SaO2% (BldA) [Mass fraction] 98 % Dr. Ivette Grimes Work Phone: [facility] 12-10-2023 05:52-0500 Systolic blood pressure 108 mm[Hg] Dr. Ivette Grimes Work Phone: [facility] 12-09-2023 17:15-0500 Body weight 122.92 kg Ivette Grimes MD Work Phone: [facility] 12-09-2023 17:15-0500 Diastolic blood pressure 62 mm[Hg] Ivette Grimes MD Work Phone: [facility] 12-09-2023 17:15-0500 Heart rate 60 /min Ivette Grimes MD Work Phone: [facility] 12-09-2023 17:15-0500 SaO2% (BldA) [Mass fraction] 97 % Ivette Grimes MD Work Phone: [facility] 12-09-2023 17:15-0500 Systolic blood pressure 124 mm[Hg] Ivette Grimes MD Work Phone: [facility] 10-27-2023 15:06-0500 Body height 170.18 cm Self [facility] 10-27-2023 15:06-0500 Body mass index (BMI) [Ratio] 43.9 kg/m2 Self Referred [facility] 10-27-2023 15:06-0500 Body temperature 97 [degF] Self [facility] 10-27-2023 15:06-0500 Body weight 127.45 kg Self [facility] 10-27-2023 15:06-0500 Diastolic blood pressure 90 mm[Hg] Self Referred [facility] 10-27-2023 15:06-0500 Heart rate 80 /min Self [facility] 10-27-2023 15:06-0500 Respiratory rate 16 /min Self [facility] 10-27-2023 15:06-0500 SaO2% (BldA) [Mass fraction] 98 % Self [facility]erred [facility] 10-27-2023 15:06-0500 Systolic blood pressure 173 mm[Hg] Self [facility] 08-07-2023 12:17-0400 Body temperature 97.5 [degF] [facility] 08-07-2023 12:17-0400 Diastolic blood pressure 75 mm[Hg] Self Referred [facility] 08-07-2023 12:17-0400 Heart rate 53 /min Self [facility] 08-07-2023 12:17-0400 Respiratory rate 14 /min [facility] 08-07-2023 12:17-0400 SaO2% (BldA) [Mass fraction] 99 % Self [facility] 08-07-2023 12:17-0400 Systolic blood pressure 119 mm[Hg] Self [facility] 08-07-2023 11:00-0400 Body mass index (BMI) [Ratio] 47.2 kg/m2 Self [facility] 08-05-2023 17:16-0400 Body height 170.18 cm Self [facility] 08-05-2023 17:16-0400 Body weight 136.8 kg Self [facility] 08-05-2023 13:00-0400 Body temperature 97.4 [degF] Dr. Ivette Grimes Work Phone: [facility] 08-05-2023 13:00-0400 Diastolic blood pressure 76 mm[Hg] Dr. Ivette Grimes Work Phone: [facility] 08-05-2023 13:00-0400 Heart rate 58 /min Dr. Ivette Grimes Work Phone: [facility] 08-05-2023 13:00-0400 Respiratory rate 14 /min Dr. Ivette Grimes Work Phone: [facility] 08-05-2023 13:00-0400 SaO2% (BldA) [Mass fraction] 96 % Dr. Ivette Grimes Work Phone: [facility] 08-05-2023 13:00-0400 Systolic blood pressure 156 mm[Hg] Dr. Ivette Grimes Work Phone: [facility] 08-05-2023 11:33-0400 Body mass index (BMI) [Ratio] 47.2 kg/m2 Dr. Ivette Grimes Work Phone: [facility] 08-05-2023 09:51-0400 Body weight 136.[address] Ivette Grimes Work Phone: [facility] 08-05-2023 09:40-0400 Body height 170.[address] Ivette Grimes Work Phone: [facility] 06-07-2023 15:01-0400 Diastolic blood pressure 76 mm[Hg] Ivette Mejia Jr., MD Work Phone: [facility] 06-07-2023 15:01-0400 Heart rate 75 /min Ivette Mejia Jr., MD Work Phone: [facility] 06-07-2023 15:01-0400 Respiratory rate 16 /min Ivette Mejia Jr., MD Work Phone: [facility] 06-07-2023 15:01-0400 SaO2% (BldA) [Mass fraction] 97 % Ivette Mejia Jr., MD Work Phone: [facility] 06-07-2023 15:01-0400 Systolic blood pressure 138 mm[Hg] Ivette Mejia Jr., MD Work Phone: [facility] 06-06-2023 09:39-0400 Body weight 132 kg Ivette Grimes MD Work Phone: [facility] 06-06-2023 09:39-0400 Diastolic blood pressure 81 mm[Hg] Ivette Grimes MD Work Phone: [facility] 06-06-2023 09:39-0400 Heart rate 51 /min Ivette Grimes MD Work Phone: [facility] 06-06-2023 09:39-0400 SaO2% (BldA) [Mass fraction] 98 % Ivette Grimes MD Work Phone: [facility] 06-06-2023 09:39-0400 Systolic blood pressure 129 mm[Hg] Ivette Grimes MD Work Phone: [facility] 05-20-2023 22:47-0400 Diastolic blood pressure 88 mm[Hg] Dr. Ivette Grimes Work Phone: [facility] 05-20-2023 22:47-0400 Heart rate 78 /min Dr. Ivette Grimes Work Phone: [facility] 05-20-2023 22:47-0400 Respiratory rate 18 /min Dr. Ivette Grimes Work Phone: [facility] 05-20-2023 22:47-0400 SaO2% (BldA) [Mass fraction] 100 % Dr. Ivette Grimes Work Phone: [facility] 05-20-2023 22:47-0400 Systolic blood pressure 134 mm[Hg] Dr. Ivette Grimes Work Phone: 7(376)162-939355 [place] [address] 05-20-2023 21:28-0400 Body height 170.[address] Ivette Grimes Work Phone: [facility] 05-20-2023 21:28-0400 Body mass index (BMI) [Ratio] 45.4 kg/m2 Dr. Ivette Grimes Work Phone: 2(935)[phone] [place] [address] 05-20-2023 21:28-0400 Body temperature 97.5 [degF] Dr. Ivette Grimes Work Phone: 0(513)138-756855 [place] [address] 05-20-2023 21:28-0400 Body weight 131.[address] Ivette Grimes Work Phone: 8(642)745-099655 [place] [address] 05-17-2023 10:04-0400 Body height 170.2 cm Fatuma Robertser PA-C Work Phone: [facility] 05-17-2023 10:04-0400 Body weight 132 kg Fatuma Robertser PA-C Work Phone: [facility] 05-17-2023 10:04-0400 Diastolic blood pressure 70 mm[Hg] Fatuma Robertser PA-C Work Phone: [facility] 05-17-2023 10:04-0400 Heart rate 68 /min Fatuma Robertser PA-C Work Phone: [facility] 05-17-2023 10:04-0400 SaO2% (BldA) [Mass fraction] 97 % Fatuma Robertser PA-C Work Phone: [facility] 05-17-2023 10:04-0400 Systolic blood pressure 123 mm[Hg] Fatuma Robertser PA-C Work Phone: [facility] 03-05-2023 12:35-0400 Body temperature 97.81 [degF] Fatuma Robertser PA-C Work Phone: [facility] 03-05-2023 12:35-0400 Body weight 130.09 kg Fatuma Robertser PA-C Work Phone: [facility] 03-05-2023 12:35-0400 Diastolic blood pressure 76 mm[Hg] Fatuma Robertser PA-C Work Phone: [facility] 03-05-2023 12:35-0400 Heart rate 61 /min Fatuma Robertser PA-C Work Phone: [facility] 03-05-2023 12:35-0400 Respiratory rate 16 /min Fatuma Queener PA-C Work Phone: [facility] 03-05-2023 12:35-0400 SaO2% (BldA) [Mass fraction] 98 % Fatuma Queener PA-C Work Phone: [facility] 03-05-2023 12:35-0400 Systolic blood pressure 145 mm[Hg] Fatuma Beckford PA-C Work Phone: [facility] 03-05-2023 08:56-0400 Body height 170.2 cm Galina Camacho MD Work Phone: [facility] 03-05-2023 08:56-0400 Body weight 130.18 kg Galina Camacho MD Work Phone: [facility] 03-05-2023 08:56-0400 Diastolic blood pressure 82 mm[Hg] Galina Camacho MD Work Phone: [facility] 03-05-2023 08:56-0400 Systolic blood pressure 122 mm[Hg] Galina Camacho MD Work Phone: [facility] 02-28-2023 14:20-0400 Body weight 131.54 kg Ivette Grimes MD Work Phone: [facility] 02-28-2023 14:20-0400 Diastolic blood pressure 72 mm[Hg] Ivette Grimes MD Work Phone: [facility] 02-28-2023 14:20-0400 Heart rate 79 /min Ivette Grimes MD Work Phone: [facility] 02-28-2023 14:20-0400 SaO2% (BldA) [Mass fraction] 97 % Ivette Grimes MD Work Phone: [facility] 02-28-2023 14:20-0400 Systolic blood pressure 138 mm[Hg] Ivette Grimes MD Work Phone: [facility] 01-31-2023 09:21-0400 Body weight 130.18 kg Ivette Grimes MD Work Phone: [facility] 01-31-2023 09:21-0400 Diastolic blood pressure 82 mm[Hg] Ivette Grimes MD Work Phone: [facility] 01-31-2023 09:21-0400 Heart rate 65 /min Ivette Grimes MD Work Phone: [facility] 01-31-2023 09:21-0400 SaO2% (BldA) [Mass fraction] 98 % Ivette Grimes MD Work Phone: [facility] 01-31-2023 09:21-0400 Systolic blood pressure 120 mm[Hg] Ivette Grimes MD Work Phone: [facility] 01-24-2023 10:23-0400 Heart rate 64 /min Elle Sanchez MD Work Phone: [facility] 01-24-2023 10:23-0400 Respiratory rate 16 /min Elle Sanchez MD Work Phone: [facility] 01-24-2023 10:23-0400 SaO2% (BldA) [Mass fraction] 98 % Elle Sanchez MD Work Phone: [facility] 01-17-2023 11:21-0400 Body height 170.2 cm Ivette Grimes MD Work Phone: [facility] 01-17-2023 11:21-0400 Body weight 128.82 kg Ivette Grimes MD Work Phone: [facility] 01-17-2023 11:21-0400 Diastolic blood pressure 84 mm[Hg] Ivette Grimes MD Work Phone: [facility] 01-17-2023 11:21-0400 Heart rate 70 /min Ivette Grimes MD Work Phone: [facility] 01-17-2023 11:21-0400 SaO2% (BldA) [Mass fraction] 98 % Ivette Grimes MD Work Phone: [facility] 01-17-2023 11:21-0400 Systolic blood pressure 148 mm[Hg] Ivette Grimes MD Work Phone: [facility] 01-04-2023 11:30-0500 Body weight 128.37 kg Ivette Grimes MD Work Phone: [facility] 01-04-2023 11:30-0500 Diastolic blood pressure 78 mm[Hg] Ivette Grimes MD Work Phone: [facility] 01-04-2023 11:30-0500 Heart rate 85 /min Ivette Grimes MD Work Phone: [facility] 01-04-2023 11:30-0500 SaO2% (BldA) [Mass fraction] 97 % Ivette Grimes MD Work Phone: [facility] 01-04-2023 11:30-0500 Systolic blood pressure 132 mm[Hg] Ivette Grimes MD Work Phone: [facility] 12-28-2022 14:55-0500 Body height 170.[address] Ivette Grimes Work Phone: [facility] 12-28-2022 14:55-0500 Body mass index (BMI) [Ratio] 44.6 kg/m2 Dr. Ivette Grimes Work Phone: [facility] 12-28-2022 14:55-0500 Body weight 129.[address] Ivette rGimes Work Phone: [facility] 12-28-2022 14:55-0500 Diastolic blood pressure 79 mm[Hg] Dr. Ivette Grimes Work Phone: [facility] 12-28-2022 14:55-0500 Heart rate 71 /min Dr. Ivette Grimes Work Phone: [facility] 12-28-2022 14:55-0500 Respiratory rate 20 /min Dr. Ivette Grimes Work Phone: [facility] 12-28-2022 14:55-0500 Systolic blood pressure 130 mm[Hg] Dr. Ivette Grimes Work Phone: [facility] 12-26-2022 11:10-0500 Body height 170.2 cm Ivette Grimes MD Work Phone: [facility] 12-26-2022 11:10-0500 Body weight 128.37 kg Ivette Grimes MD Work Phone: [facility] 12-26-2022 11:10-0500 Diastolic blood pressure 74 mm[Hg] Ivette Grimes MD Work Phone: [facility] 12-26-2022 11:10-0500 Heart rate 83 /min Ivette Grimes MD Work Phone: [facility] 12-26-2022 11:10-0500 SaO2% (BldA) [Mass fraction] 97 % Ivette Grimes MD Work Phone: [facility] 12-26-2022 11:10-0500 Systolic blood pressure 140 mm[Hg] Ivette Grimes MD Work Phone: [facility] 12-14-2022 09:16-0500 Body height 170.2 cm Ivette Grimes MD Work Phone: [facility] 12-14-2022 09:16-0500 Body weight 125.65 kg Ivette Grimes MD Work Phone: [facility] 12-14-2022 09:16-0500 Diastolic blood pressure 98 mm[Hg] Ivette Grimes MD Work Phone: [facility] 12-14-2022 09:16-0500 Heart rate 75 /min Ivette Grimes MD Work Phone: [facility] 12-14-2022 09:16-0500 SaO2% (BldA) [Mass fraction] 98 % Ivette Grimes MD Work Phone: [facility] 12-14-2022 09:16-0500 Systolic blood pressure 160 mm[Hg] Ivette Grimes MD Work Phone: [facility] 12-07-2022 16:34-0500 Body temperature 98.8 [degF] Ivette Mejia Jr., MD Work Phone: [facility] 12-07-2022 16:34-0500 Body weight 126.01 kg Ivette Mejia Jr., MD Work Phone: [facility] 12-07-2022 16:34-0500 Diastolic blood pressure 94 mm[Hg] Ivette Mejia Jr., MD Work Phone: [facility] 12-07-2022 16:34-0500 Heart rate 72 /min Ivette Mejia Jr., MD Work Phone: [facility] 12-07-2022 16:34-0500 Respiratory rate 20 /min Ivette Mejia Jr., MD Work Phone: [facility] 12-07-2022 16:34-0500 SaO2% (BldA) [Mass fraction] 97 % Ivette Mejia Jr., MD Work Phone: [facility] 12-07-2022 16:34-0500 Systolic blood pressure 160 mm[Hg] Ivette Mejia Jr., MD Work Phone: [facility] 12-06-2022 08:07-0500 Body mass index (BMI) [Ratio] 43.4 kg/m2 Dr. Ivette Grimes Work Phone: [facility] 12-06-2022 08:07-0500 Body temperature 97.7 [degF] Dr. Ivette Grimes Work Phone: [facility] 12-06-2022 08:07-0500 Body weight 125.[address] Ivette Grimes Work Phone: [facility] 12-06-2022 08:07-0500 Diastolic blood pressure 79 mm[Hg] Dr. Ivette Grimes Work Phone: [facility] 12-06-2022 08:07-0500 Heart rate 70 /min Dr. Ivette Grimes Work Phone: [facility] 12-06-2022 08:07-0500 Respiratory rate 18 /min Dr. Ivette Grimes Work Phone: [facility] 12-06-2022 08:07-0500 SaO2% (BldA) [Mass fraction] 98 % Dr. Ivette Grimes Work Phone: [facility] 12-06-2022 08:07-0500 Systolic blood pressure 141 mm[Hg] Dr. Ivette Grimes Work Phone: [facility] 12-03-2022 20:26-0500 Heart rate 75 /min Dr. Ivette Grimes Work Phone: [facility] 12-03-2022 20:26-0500 Respiratory rate 18 /min Dr. Ivette Grimes Work Phone: 8(237)825-616369 [place] [address] 12-03-2022 20:26-0500 SaO2% (BldA) [Mass fraction] 96 % Dr. Ivette Grimes Work Phone: 6(656)123-609669 [place] [address] 12-03-2022 18:25-0500 Body mass index (BMI) [Ratio] 43.4 kg/m2 Dr. Ivette Grimes Work Phone: 0(837)847-677169 [place] [address] 12-03-2022 18:25-0500 Body temperature 97.8 [degF] Dr. Ivette Grimes Work Phone: 3(024)219-786969 [place] [address] 12-03-2022 18:25-0500 Body weight 125.[address] Ivette Grimes Work Phone: 4(737)091-604369 [place] [address] 12-03-2022 18:25-0500 Diastolic blood pressure 91 mm[Hg] Dr. Ivette Grimes Work Phone: 5(549)454-102369 [place] [address] 12-03-2022 18:25-0500 Systolic blood pressure 176 mm[Hg] Dr. Ivette Grimes Work Phone: 5(133)566-060969 [place] [address] 11-27-2022 14:36-0500 Body height 170.[address] Ivette Grimes Work Phone: 4(897)621-073869 [place] [address] 11-27-2022 14:36-0500 Body mass index (BMI) [Ratio] 42.7 kg/m2 Dr. Ivette Grimes Work Phone: 9(374)913-256969 [place] [address] 11-27-2022 14:36-0500 Body temperature 98.1 [degF] Dr. Ivette Grimes Work Phone: 7(681)424-474169 [place] [address] 11-27-2022 14:36-0500 Body weight 123.[address] Ivette Grimes Work Phone: 9(643)571-955769 [place] [address] 11-27-2022 14:36-0500 Diastolic blood pressure 81 mm[Hg] Dr. Ivette Grimes Work Phone: 7(001)996-892869 [place] [address] 11-27-2022 14:36-0500 Heart rate 70 /min Dr. Ivette Grimes Work Phone: 9(440)011-052169 [place] [address] 11-27-2022 14:36-0500 Respiratory rate 15 /min Dr. Ivette Grimes Work Phone: [facility] 11-27-2022 14:36-0500 SaO2% (BldA) [Mass fraction] 99 % Dr. Ivette Grimes Work Phone: [facility] 11-27-2022 14:36-0500 Systolic blood pressure 154 mm[Hg] Dr. Ivette Grimes Work Phone: [facility] 11-27-2022 13:51-0500 Body height 170.2 cm Ivette Grimes MD Work Phone: [facility] 11-27-2022 13:51-0500 Body weight 123.83 kg Ivette Grimes MD Work Phone: [facility] 11-27-2022 13:51-0500 Diastolic blood pressure 84 mm[Hg] Ivette Grimes MD Work Phone: [facility] 11-27-2022 13:51-0500 Heart rate 75 /min Ivette Grimes MD Work Phone: [facility] 11-27-2022 13:51-0500 SaO2% (BldA) [Mass fraction] 97 % Ivette Grimes MD Work Phone: [facility] 11-27-2022 13:51-0500 Systolic blood pressure 150 mm[Hg] Ivette Grimes MD Work Phone: [facility] 11-24-2022 15:07-0500 Heart rate 67 /min Dr. Ivette Grimes Work Phone: [facility] 11-24-2022 15:07-0500 SaO2% (BldA) [Mass fraction] 97 % Dr. Ivette Grimes Work Phone: [facility] 11-24-2022 13:43-0500 Diastolic blood pressure 64 mm[Hg] Dr. Ivette Grimes Work Phone: [facility] 11-24-2022 13:43-0500 Respiratory rate 16 /min Dr. Ivette Grimes Work Phone: [facility] 11-24-2022 13:43-0500 Systolic blood pressure 132 mm[Hg] Dr. Ivette Grimes Work Phone: [facility] 11-24-2022 11:44-0500 Body height 170.[address] Ivette Grimes Work Phone: [facility] 11-24-2022 11:44-0500 Body mass index (BMI) [Ratio] 47.2 kg/m2 Dr. Ivette Grimes Work Phone: [facility] 11-24-2022 11:44-0500 Body temperature 97.9 [degF] Dr. Ivette Grimes Work Phone: [facility] 11-24-2022 11:44-0500 Body weight [address] Ivette Grimes Work Phone: [facility] 11-08-2022 13:35-0500 Heart rate 70 /min Adelina Mason SEARCH DIRECTOR.PROJECTION ENGINEER Work Phone: [facility] 11-08-2022 13:35-0500 Respiratory rate 14 /min Adelina Mason SEARCH DIRECTOR.PROJECTION ENGINEER Work Phone: [facility] 11-08-2022 13:35-0500 SaO2% (BldA) [Mass fraction] 98 % Adelina Mason SEARCH DIRECTOR.PROJECTION ENGINEER Work Phone: [facility] 09-04-2022 11:50-0400 Body height 170.2 cm Ivette Grimes MD Work Phone: [facility] 09-04-2022 11:50-0400 Body weight 123.11 kg Ivette Grimes MD Work Phone: [facility] 09-04-2022 11:50-0400 Diastolic blood pressure 80 mm[Hg] Ivette Grimes MD Work Phone: [facility] 09-04-2022 11:50-0400 Heart rate 74 /min Ivette Grimes MD Work Phone: [facility] 09-04-2022 11:50-0400 SaO2% (BldA) [Mass fraction] 98 % Ivette Grimes MD Work Phone: [facility] 09-04-2022 11:50-0400 Systolic blood pressure 160 mm[Hg] Ivette Grimes MD Work Phone: [facility] 08-16-2022 12:57-0400 Body height 170.[address] Ivette Grimes Work Phone: [facility] Work Phone: 08-16-2022 12:57-0400 Body mass index (BMI) [Ratio] 42.3 kg/m2 Dr. Ivette Grimes Work Phone: [facility] 08-16-2022 12:57-0400 Body weight 122.[address] Ivette Grimes Work Phone: [facility] 08-16-2022 12:57-0400 Diastolic blood pressure 78 mm[Hg] Dr. Ivette Grimes Work Phone: 5(315)827-882855 [place] [address] 08-16-2022 12:57-0400 Heart rate 73 /min Dr. Ivette Grimes Work Phone: 1(872)706-809655 [place] [address] 08-16-2022 12:57-0400 Respiratory rate 16 /min Dr. Ivette Grimes Work Phone: [facility] 08-16-2022 12:57-0400 Systolic blood pressure 117 mm[Hg] Dr. Ivette Grimes Work Phone: [facility] 08-07-2022 07:38-0400 Body height 170.[address] Ivette Grimes Work Phone: [facility] Work Phone: 08-07-2022 07:38-0400 Body mass index (BMI) [Ratio] 42.5 kg/m2 Dr. Ivette Grimes Work Phone: [facility] 08-07-2022 07:38-0400 Body temperature 99.1 [degF] Dr. Ivette Grimes Work Phone: [facility] 08-07-2022 07:38-0400 Body weight 123.[address] Ivette Grimes Work Phone: [facility] 08-07-2022 07:38-0400 Diastolic blood pressure 81 mm[Hg] Dr. Ivette Grimes Work Phone: [facility] 08-07-2022 07:38-0400 Heart rate 65 /min Dr. Ivette Grimes Work Phone: [facility] 08-07-2022 07:38-0400 Respiratory rate 16 /min Dr. Ivette Grimes Work Phone: [facility] 08-07-2022 07:38-0400 SaO2% (BldA) [Mass fraction] 97 % Dr. Ivette Grimes Work Phone: [facility] 08-07-2022 07:38-0400 Systolic blood pressure 130 mm[Hg] Dr. Ivette Grimes Work Phone: [facility] 08-02-2022 09:50-0400 Body weight 122.02 kg Ivette Grimes MD Work Phone: [facility] 08-02-2022 09:50-0400 Diastolic blood pressure 82 mm[Hg] Ivette Grimes MD Work Phone: [facility] 08-02-2022 09:50-0400 Heart rate 60 /min Ivette Grimes MD Work Phone: [facility] 08-02-2022 09:50-0400 Systolic blood pressure 126 mm[Hg] Ivette Grimes MD Work Phone: [facility] 07-19-2022 12:57-0400 Body height 170.2 cm Karen Bansal SEARCH DIRECTOR.PROJECTION ENGINEER Work Phone: [facility] 07-19-2022 12:57-0400 Body weight 122.92 kg Karen Bansal SEARCH DIRECTOR.PROJECTION ENGINEER Work Phone: [facility] 07-19-2022 12:57-0400 Diastolic blood pressure 57 mm[Hg] Karen Bansal SEARCH DIRECTOR.PROJECTION ENGINEER Work Phone: [facility] 07-19-2022 12:57-0400 Heart rate 76 /min Karen Ocasioerich SEARCH DIRECTOR.PROJECTION ENGINEER Work Phone: [facility] 07-19-2022 12:57-0400 Systolic blood pressure 115 mm[Hg] Karen Ocasioerich SEARCH DIRECTOR.PROJECTION ENGINEER Work Phone: [facility] 06-07-2022 15:13-0400 Body temperature 97.81 [degF] Tara Dahlhausen SEARCH DIRECTOR.PROJECTION ENGINEER Work Phone: [facility] 06-07-2022 15:13-0400 Body weight 119.84 kg Tara Dahlhausen SEARCH DIRECTOR.PROJECTION ENGINEER Work Phone: [facility] 06-07-2022 15:13-0400 Diastolic blood pressure 68 mm[Hg] Tara Dahlhausen SEARCH DIRECTOR.PROJECTION ENGINEER Work Phone: [facility] 06-07-2022 15:13-0400 Heart rate 80 /min Tara Dahlhausen SEARCH DIRECTOR.PROJECTION ENGINEER Work Phone: [facility] 06-07-2022 15:13-0400 Respiratory rate 22 /min Tara Dahlhausen SEARCH DIRECTOR.PROJECTION ENGINEER Work Phone: [facility] 06-07-2022 15:13-0400 SaO2% (BldA) [Mass fraction] 98 % Tara Dahlhausen SEARCH DIRECTOR.PROJECTION ENGINEER Work Phone: [facility] 06-07-2022 15:13-0400 Systolic blood pressure 112 mm[Hg] Tara Dahlhausen SEARCH DIRECTOR.PROJECTION ENGINEER Work Phone: [facility] 06-04-2022 14:39-0400 Body height 170.[address] Ivette Grimes Work Phone: [facility] Work Phone: 05-24-2022 11:01-0400 Heart rate 78 /min Adelina Mason SEARCH DIRECTOR.PROJECTION ENGINEER Work Phone: [facility] 05-24-2022 11:01-0400 Respiratory rate 18 /min Adelina Mason SEARCH DIRECTOR.PROJECTION ENGINEER Work Phone: [facility] 05-24-2022 11:01-0400 SaO2% (BldA) [Mass fraction] 98 % Adelina Woodland SEARCH DIRECTOR.PROJECTION ENGINEER Work Phone: [facility] 05-10-2022 10:54-0400 Diastolic blood pressure 75 mm[Hg] Elle Sanchez MD Work Phone: [facility] 05-10-2022 10:54-0400 Heart rate 61 /min Elle Sanchez MD Work Phone: [facility] 05-10-2022 10:54-0400 Respiratory rate 20 /min Elle Sanchez MD Work Phone: [facility] 05-10-2022 10:54-0400 SaO2% (BldA) [Mass fraction] 98 % Elle Sanchez MD Work Phone: [facility] 05-10-2022 10:54-0400 Systolic blood pressure 130 mm[Hg] Elle Sanchez MD Work Phone: [facility] 05-01-2022 14:39-0400 Body weight 118.39 kg Ivette Grimes MD Work Phone: [facility] 05-01-2022 14:39-0400 Diastolic blood pressure 80 mm[Hg] Ivette Grimes MD Work Phone: [facility] 05-01-2022 14:39-0400 Heart rate 68 /min Ivette Grimes MD Work Phone: [facility] 05-01-2022 14:39-0400 Respiratory rate 18 /min Ivette Grimes MD Work Phone: [facility] 05-01-2022 14:39-0400 SaO2% (BldA) [Mass fraction] 98 % Ivette Grimes MD Work Phone: [facility] 05-01-2022 14:39-0400 Systolic blood pressure 132 mm[Hg] Ivette Grimes MD Work Phone: [facility] 04-09-2022 15:29-0400 Body temperature 97.5 [degF] Ivette Mejia Jr., MD Work Phone: [facility] 04-09-2022 15:29-0400 Body weight 122.2 kg Ivette Mejia Jr., MD Work Phone: [facility] 04-09-2022 15:29-0400 Diastolic blood pressure 72 mm[Hg] Ivette Mejia Jr., MD Work Phone: [facility] 04-09-2022 15:29-0400 Heart rate 74 /min Ivette Mejai Jr., MD Work Phone: [facility] 04-09-2022 15:29-0400 Respiratory rate 18 /min Ivette Mejia Jr., MD Work Phone: [facility] 04-09-2022 15:29-0400 SaO2% (BldA) [Mass fraction] 97 % Ivette Mejia Jr., MD Work Phone: [facility] 04-09-2022 15:29-0400 Systolic blood pressure 138 mm[Hg] Ivette Mejia Jr., MD Work Phone: [facility] 03-29-2022 10:58-0400 Heart rate 62 /min Elle Sanchez MD Work Phone: [facility] 03-29-2022 10:58-0400 Respiratory rate 15 /min Elle Sanchez MD Work Phone: [facility] 03-29-2022 10:58-0400 SaO2% (BldA) [Mass fraction] 98 % Elle Sanchez MD Work Phone: [facility] 02-28-2022 16:31-0400 Body weight 120.66 kg Ivette Grimes MD Work Phone: [facility] 02-28-2022 16:31-0400 Diastolic blood pressure 82 mm[Hg] Ivette Grimes MD Work Phone: [facility] 02-28-2022 16:31-0400 Heart rate 72 /min Ivette Grimes MD Work Phone: [facility] 02-28-2022 16:31-0400 Systolic blood pressure 142 mm[Hg] Ivette Grimes MD Work Phone: [facility] 11-21-2021 13:58-0500 Body height 170.[address] Ivette Grimes Work Phone: [facility] Work Phone: 09-09-2017 14:42-0500 BMI (Body Mass Index) 41.78 kg/m2 Amparo Hitchcock MD [facility] 09-09-2017 14:42-0500 Body Temperature 98.5 [degF] Amparo Hitchcock MD [facility] 09-09-2017 14:42-0500 Body Temperature 98.49 [degF] Amparo Hitchcock MD [facility] 09-09-2017 14:42-0500 BP Diastolic 78 mm[Hg] Amparo Hitchcock MD [facility] 09-09-2017 14:42-0500 BP Systolic 137 mm[Hg] Amparo Hitchcock MD [facility] 09-09-2017 14:42-0500 Height 172.72 cm Amparo Hitchcock MD [facility] 09-09-2017 14:42-0500 Pulse (Heart Rate) 67 /min Amparo Hitchcock MD [facility] 09-09-2017 14:42-0500 Respiratory Rate 16 /min Amparo Hitchcock MD [facility] 09-09-2017 14:42-0500 Weight 124.65 kg Amparo Hitchcock MD [facility] 07-22-2017 16:06-0400 BMI (Body Mass Index) 39.53 kg/m2 [facility] Work Phone: 07-22-2017 16:06-0400 Pulse (Heart Rate) 95 /min [facility] Work Phone: 07-22-2017 16:06-0400 Respiratory Rate 22 /min [facility] Work Phone: 07-22-2017 16:06-0400 Weight 117.94 kg Roya Dixon [facility] Work Phone: 05-10-2017 14:47-0400 Body Temperature 97.7 [degF] Roya Dixon [facility] Work Phone: 05-10-2017 14:47-0400 BP Diastolic 84 mm[Hg] Roya Dixon [facility] Work Phone: 05-10-2017 14:47-0400 BP Systolic 132 mm[Hg] Roya Dixon [facility] Work Phone: 05-10-2017 14:47-0400 Height 172.72 cm Roya Dixon [facility] Work Phone: Encounters Encounter Date Encounter Type Care Provider Facility Start: 07-05-2025 Emergency department patient visit [facility] Facility:[facility] Start: 06-29-2025 Encounter for other preprocedural examination Brett Quiroga [facility] Start: 06-25-2025 End: 06-25-[address] Brett Quiroga MD -[facility] Work Phone: Start: 06-25-2025 End: 06-25-[address] Ivette Grimes MD Work Phone: -[facility] Start: 06-23-2025 Non-patient / Non-visit Dr. Brett hernandez MD -[facility] Start: 06-23-2025 End: 06-23-2025 Admission to same day surgery center Dr. Brett Quiroga [facility] Start: 06-23-2025 End: 06-23-[address] Ivette Grimes MD Work Phone: [facility] Start: 06-17-2025 End: 06-17-[address] Bibiana Rehman DC -[facility] Work Phone: Start: 06-17-2025 End: 06-17-[address] Ivette Grimes MD Work Phone: [facility] Start: 06-16-2025 End: 06-16-2025 Refill Ivette Grimes MD Work Phone: [facility] Comment on above: Refill Request Start: 06-10-[address] [facility] Facility :[facility] Start: 06-10-2025 Non-patient / Non-[facility] Work Phone: Start: 06-09-2025 End: 06-18-2025 Telephone encounter Ivette Grimes MD Work Phone: [facility] Comment on above: Results Start: 06-09-2025 End: 06-09-[address] Ivette Grimes MD Work Phone: -Laboratory Start: 06-09-2025 End: 06-09-[address] Ivette Grimes MD -Laboratory Work Phone: Start: 06-09-2025 End: 06-09-2025 ambulatory Ivette Grimes Facility:[facility] Start: 06-07-2025 End: 06-07-2025 Patient encounter procedure Ivette Grimes MD Work Phone: [facility] Comment on above: Well adult exam (Carolyn [...] encounter status Ivette Grimes MD Work Phone: [facility] Start: 06-07-2025 End: 06-07-2025 ambulatory IVETTE GRIMES Facility:[facility] Start: 06-07-2025 Encounter for genera l adult medical examination without abnormal findings IVETTE GRIMES [facility] Start: 06-05-2025 Registered [facility] -Laboratory Work Phone: Start: 06-05-2025 ambulatory [facility] Facility:[facility] Start: 06-01-2025 End: 06-01-[address] Bibiana Rehman DC -[facility] Work Phone: Start: 06-01-2025 End: 06-01-[address] Ivette Grimes MD Work Phone: -[facility] Start: 05-11-2025 ambulatory [facility] Facility:[facility] Start: 05-11-[address] Ivette barry MD -Physical Therapy Work Phone: Start: 05-06-2025 End: 05-06-[address] Brett Quiroga MD -[facility] Work Phone: Start: 05-06-2025 End: 05-06-[address] Ivette Grimes MD Work Phone: [facility] Start: 05-05-[address] Ivette barry MD -Physical Therapy Work Phone: Start: 04-21-2025 End: 04-21-[address] Bibiana Rehman DC -[facility] Work Phone: Start: 04-21-2025 End: 04-21-[address] Ivette Grimes MD Work Phone: [facility] Work Phone: Start: 04-20-[address] Ivette barry MD -Physical Therapy Work Phone: Start: 04-17-2025 End: 04-17-[address] Ivette Grimes MD Work Phone: [facility] Work Phone: Start: 04-17-2025 End: 04-17-[address] Brett Quiroga MD -MRI - [facility] Work Phone: Start: 04-17-2025 End: 04-17-2025 ambulatory Brett Quiroga Facility:[facility] Start: 04-12-2025 End: 04-12-2025 ambulatory Ivette Grimes MD Work Phone: [facility] Comment on above: Muscle relaxer Start: 04-07-2025 End: 04-07-2025 Telephone encounter Ivette Grimes MD Work Phone: [facility] Comment on above: Rx Refills Start: 04-05-2025 End: 04-05-[address] Bibiana Rehman DC -[facility] Work Phone: Start: 04-05-2025 End: 04-05-[address] Ivette Grimes MD Work Phone: [facility] Work Phone: Start: 04-01-2025 End: 04-01-2025 Telephone encounter Amanda IRENE-C Work Phone: Neurology Comment on above: Botox Approved Start: 03-22-2025 End: 03-22-[address] Brett Quiroga MD -[facility] Work Phone: Start: 03-22-2025 End: 03-22-[address] Ivette Grimes MD Work Phone: [facility] Work Phone: Start: 03-19-2025 End: 03-19-2025 Telephone encounter Amanda Arteaga PA-C Work Phone: Neurology Comment on above: Botox Referral Start: 03-11-2025 End: 03-11-[address] Ivette Grimes MD Work Phone: [facility] Work Phone: Start: 03-11-2025 End: 03-11-[address] Brett Quiroga MD -Radiology, [facility] Work Phone: Start: 03-11-2025 End: 03-11-[address] [facility] Facility:[facility] Start: 03-09-2025 End: 03-09-[address] Bibiana Rehman DC -[facility] Work Phone: Start: 03-09-2025 End: 03-09-2025 ambulatory Bibiana Rehman Facility:[facility] Start: 03-09-[address] Ivette barry MD -Physical Therapy Work Phone: Start: 03-09-2025 End: 03-09-2025 Telemedicine consultation with patient Amanda Krystle Chandler PA-C Work Phone: Neurology Start: 03-09-2025 End: 03-09-2025 ambulatory Amanda M Chandler PA-C Work Phone: Neurology Comment on above: Intractable chronic migraine without aura and with status migrainosus (Primary Dx) Start: 03-04-2025 End: 03-04-2025 Telephone encounter Amanda IRENE-C Work Phone: Neurology Start: 03-02-2025 End: 03-02-2025 Telemedicine consultation with patient Ivette Grimes MD Work Phone: Family [facility] Start: 03-02-2025 End: 03-02-2025 ambulatory Ivette Grimes MD Work Phone: [facility] Comment on above: Intractable chronic migraine without aura and without status migrainosus (Primary Dx); Chronic left shoulder pain Start: 02-16-2025 ambulatory Jesenia Mercado DRAWER HARDWARE WORKER Fac ility:[facility] Start: 02-04-2025 End: 02-04-[address] Bibiana Rehman [place] -[facility] Work Phone: Start: 02-04-2025 End: 02-04-2025 ambulatory Bibiana Rehman Facility:[facility] Start: 01-28-2025 End: 01-28-2025 Chart abstracting Ivette Grimes MD Work Phone: [facility] [place] Start: 01-28-2025 End: 03-30-2025 Follow-up encounter [facility] Start: 01-28-2025 End: 02-08-2025 Telephone encounter Ivette Grimes MD Work Phone: [facility] Comment on above: PA new dose of ozemp ic Results Start: 01-28-2025 End: 01-28-[address] Ivette Grimes MD Work Phone: [facility] Work Phone: Start: 01-28-2025 End: 01-28-[address] Ivette Grimes MD -Laboratory Work Phone: Start: 01-28-2025 End: 01-28-2025 ambulatory Ivette Sydney Facility:[facility] Start: 01-22-2025 End: 01-22-2025 ambulatory IVETTE SYDNEY Facility:[facility] Start: 01-22-2025 End: 01-22-2025 Patient encounter procedure Ivette Grimes MD Work Phone: [facility] Comment on above: LETITIA (obstructive sle ep apnea) (Primary Dx); Flank pain; Headache, unspecified headache type; Type 2 diabetes mellitus with microalbuminuria, with long-term current use of insulin (HCC); Essential (primary) hypertension; Chronic left shoulder pain; Anxiety; Screening for depression Start: 12-24-2024 End: 12-25-2024 Refill Ivette Grimes MD Work Phone: [facility] Comment on above: Refill Request Start: 12-21-2024 End: 12-24-2024 Telephone encounter Jenni Martínez APRN.CNP Work Phone: [facility] Comment on above: Results (Labs/Chest xray ) Start: 12-11-2024 End: 12-11-2024 Telephone encounter Ivette Grimes MD Work Phone: [facility] Comment on above: Orders Start: 12-11-2024 End: 12-11-2024 Patient encounter procedure Jenni Martínez NP-C -Radiology, [facility] Work Phone: Start: 12-11-2024 End: 12-11-2024 Office outpatient visit 25 minutes Jenni [facility] SEARCH DIRECTOR.PROJECTION ENGINEER Work Phone: [facility] Comment on above: Sinobronchitis (Prim ziyad Dx); Hypokalemia Start: 12-11-2024 End: 12-11-2024 ambulatory [facility] Facility:[facility] Start: 12-11-2024 End: 12-11-2024 ambulatory [facility] Facility:[facility] Start: 11-25-2024 End: 11-25-2024 Refill Ivette Grimes MD Work Phone: [facility] Comment on above: Refill Request Start: 11-23-2024 End: 11-23-2024 Refill Ivette Grimes MD Work Phone: [facility] Comment on above: Refill Request Start: 11-17-2024 End: 12-18-2024 ambulatory Ivette Grimes MD Work Phone: [facility] Start: 11-11-2024 End: 11-11-2024 Emergency department patient visit Dr. Buddy Hall DO -Emergency Department Work Phone: Start: 10-26-2024 End: 10-26-2024 Refill Ivette Grimes MD Work Phone: Psychiatry Comment on above: Refill Request Start: 10-19-2024 End: 10-19-2024 ambulatory Ivette Grimes MD Work Phone: [facility] Comment on above: Flank pain (Primary Dx) Start: 10-19-2024 End: 10-19-2024 Telemedicine consultation with patient Ivette Grimes MD Work Phone: [facility] Start: 10-19-2024 End: 10-19-[address] Bibiana Rehman [place] -[facility] Work Phone: Start: 10-19-2024 End: 10-19-2024 ambulatory Bibiana Rehman Facility:[facility] Start: 10-16-2024 End: 10-16-2024 Emergency department patient visit Dr. Sam Pearl MD -Emergency Department Work Phone: Start: 10-07-2024 ambulatory Bibiana Rehman [facility] Start: 09-24-2024 End: 09-24-2024 ambulatory Ivette Grimes MD Work Phone: [facility] Comment on above: Dysuria (Primary Dx) ; Type 2 diabetes mellitus with microalbuminuria, with long-term current use of insulin (HCC); Primary insomnia Start: 09-24-2024 End: 09-24-2024 Telemedicine consultation with patient Ivette Grimes MD Work Phone: [facility] Start: 09-09-2024 End: 09-09-2024 ambulatory Bibiana Rehman Facility:[facility] Start: 09-03-2024 End: 09-03-2024 ambulatory IVETTE GRIMES Facility:[facility] Start: 09-03-2024 End: 09-03-2024 Patient encounter procedure Fatuma Beckford PA-C Work Phone: Neurology Comment on above: Intractable chronic migraine without aura and without status migrainosus (Primary Dx) Start: 09-01-2024 End: 09-02-2024 Telephone encounter Fatuma Beckford PA-C Work Phone: Neurology Comment on above: Appointment Patient Question Start: 08-25-2024 End: 08-25-2024 ambulatory Ivette Grimes Facility:[facility] Start: 08-13-2024 End: 08-13-2024 ambulatory Bibiana Rehman Facility:[facility] Start: 08-11-2024 End: 08-11-2024 Telephone encounter Fatuma Beckford PA-C Work Phone: Neurology Comment on above: Appointment Start: 08-10-2024 End: 08-11-2024 Refill Ivette Grimes MD Work Phone: [facility] [place] Comment on above: Refill Request Start: 08-05-2024 End: 08-06-2024 Telephone encounter Ivette Grimes MD Work Phone: [facility] [place] Comment on above: Insurance Authorizat ion (Ozempic ) Start: 08-05-2024 End: 08-05-2024 ambulatory IVETTE GRIMES Facility:[facility] Start: 08-05-2024 End: 08-05-2024 Patient encounter [...] encounter status Ivette Grimes MD Work Phone: [facility] Start: 07-30-2024 End: 07-30-2024 ambulatory Bibiana [facility] Facility:[facility] Start: 07-24-2024 End: 07-27-2024 Refill Ivette Grimes MD Work Phone: Psychiatry Comment on above: Refill Request Start: 07-22-2024 End: 07-22-2024 ambulatory Ivette Grimes Facility:[facility] Start: 07-21-2024 End: 07-21-2024 Telephone encounter Ivette Grimes MD Work Phone: [facility] [place] Comment on above: Orders Start: 07-16-2024 End: 07-16-2024 ambulatory [facility] Facility:[facility] Start: 07-09-2024 End: 07-10-2024 Telephone encounter Ivette [...] Ivette Grimes MD Work Phone: [facility] [place] Start: 07-03-2024 End: 07-03-2024 Patient encounter procedure Ivette Grimes MD Work Phone: [facility] [place] Comment on above: Bronchitis (Primary Dx); Type 2 diabetes mellitus with microalbuminuria, with long-term current use of insulin (HCC); Wheezing Start: 07-03-2024 End: 07-03-2024 ambulatory IVETTE GRIMES Facility:[facility] Start: 06-27-2024 End: 06-29-2024 Refill Ivette Grimes MD Work Phone: [facility] [place] Comment on above: Refill Request Start: 06-11-2024 ambulatory Ivette Grimes MD Work Phone: [facility] [place] Comment on above: Good Afternoon Start: 06-05-2024 ambulatory Fatuma vásquez PA-C Work Phone: Neurology Comment on above: Botox Start: 06-05-2024 E-mail encounter fro m caregiver Fatuma Beckford PA-C Work Phone: Neurology Start: 06-04-2024 Telephone encounter Fatuma perales PA-C Work Phone: Neurology Comment on above: Insurance Authorizat ion ([employer]) Start: 06-03-2024 End: 06-03-2024 ambulatory Ivette Grimes MD Work Phone: [facility] [place] Comment on above: Left sided sciatica (Primary Dx); Screening for depression Start: 06-03-2024 End: 06-03-2024 Telemedicine consultation with patient Ivette Grimes MD Work Phone: [facility] [place] Start: 05-12-2024 Refill Ivette Grimes MD Work Phone: [facility] [place] Comment on above: Refill Request Start: 05-01-2024 Telephone encounter Ivette Grimes MD Work Phone: Family [facility] Comment on above: medication not on cu rrent medication list Start: 04-20-2024 Refill Ivette Grimes MD Work Phone: [facility] Comment on above: Refill Request Start: 04-19-2024 Refill Ivette Grimes MD Work Phone: [facility] Comment on above: Refill Request Start: 04-14-2024 Refill Grace morales SEARCH DIRECTOR.PROJECTION ENGINEER Work Phone: Psychiatry Comment on above: Refill Request Insurance Authorizat ion (Trulicity ) Start: 04-06-2024 Telephone encounter Fatuma Rico IRENE-C Work Phone: Neurology Comment on above: Insurance Authorizat ion (Botox ) Start: 04-02-2024 End: 04-02-2024 Patient encounter procedure Fatuma Robertscatherine IRENE-C Work Phone: Neurology Comment on above: Intractable chronic migraine without aura and without status migrainosus (Primary Dx) Start: 02-28-2024 Refill Stephanie Paz SEARCH DIRECTOR.PROJECTION ENGINEER Work Phone: [facility] Comment on above: Refill Request Start: 02-04-2024 End: 02-04-2024 Emergency department patient [facility] Dr[facility] Work [facility]: Start: 01-22-2024 Refill Ivette Grimes MD Work Phone: [facility] Comment on above: Refill Request Start: 01-01-2024 Refill Grace Child u SEARCH DIRECTOR.PROJECTION ENGINEER Work Phone: Psychiatry Comment on above: Refill Request Start: 12-27-2023 Telephone encounter Fatuma Rico IRENE-C Work Phone: Neurology Comment on above: Insurance Authorizat ion Start: 12-26-2023 End: 12-26-2023 Patient encounter procedure Fatuma Shakeel IRENE-C Work Phone: Neurology Comment on above: Intractable chronic migraine without aura and without status migrainosus (Primary Dx) Start: 12-10-2023 End: 12-10-[address] Ivette Grimes Work Phone: [facility]-Pulmonary Medicine [facility] Work Phone: Start: 12-09-2023 End: 12-09-2023 Patient encounter procedure Ivette Grimes MD Work Phone: [facility] Comment on above: Essential (primary) hypertension (Primary Dx); LETITIA (obstructive sleep apnea); Fatty liver; Vertigo; Anxiety Start: 12-09-2023 Telephone encounter Ivette Grimes MD Work Phone: [facility] Comment on above: Orders Start: 12-06-2023 End: 12-06-[address] Ivette Grimes Work Phone: [facility] Work Phone: Start: 12-06-2023 End: 12-06-[address] Ivette Grimes Work Phone: [facility]-Laboratory, OP Pavilion Start: 12-05-2023 ambulatory Ivette Grimes MD Work Phone: [facility] Comment on above: Labs Start: 10-27-2023 End: 10-27-2023 Emergency department patient visit Self Referred [facility]-Emergency Department Work Phone: Start: 10-14-2023 Refill Ivette Grimes MD Work Phone: [facility] Comment on above: Refill Request Start: 09-23-2023 Refill Adriana Patel Work Phone: Psychiatry Comment on above: Refill Request Start: 09-12-2023 End: 09-12-2023 Patient encounter procedure Self Referred [facility] Work Phone: Start: 09-09-2023 Refill Ivette Grimes MD Work Phone: [facility] Comment on above: Refill Request Start: 08-21-2023 E-mail encounter fro m caregiver [facility] Start: 08-21-2023 Patient encounter procedure [facility] Neurology Comment on above: Botox Appointment Start: 08-20-2023 Telephone encounter Ivette Grimes MD Work Phone: [facility] [place] Comment on above: Forms ([facility] preventat ashish care ) Start: 08-15-2023 End: 08-15-2023 [facility] Work [facility]: Start: 08-07-2023 Non-patient / Non-visit Self Referre d [facility] Work Phone: Start: 08-06-2023 Non-patient / Non-visit Self Referre d [facility] Work Phone: Start: 08-06-2023 Non-patient / Non-visit Self Referre d [facility] Start: 08-05-2023 End: 08-07-2023 Evaluation and management of inpatient Dr. Ivette Grimes Work Phone: [facility]-Progressive Care Unit Work Phone: Start: 08-05-[address] Reji Grimes Work Phone: [facility] Work Phone: Start: 08-01-2023 End: 08-01-[address] [facility] Work Phone: Start: 08-01-2023 End: 08-01-2023 ambulatory Self Referred [facility] Work Phone: Start: 08-01-2023 End: 08-01-2023 Discharged Recurring Self Referred [facility]-Physical Therapy Work Phone: Start: 08-01-[address] Gerald Grimes Work Phone: [facility]-Physical Therapy Work Phone: Start: 07-18-2023 End: 07-18-[address] Ivette Grimes Work Phone: [facility] Work Phone: Start: 07-18-2023 End: 07-18-[address] Ivette Grimes Work Phone: [facility] Work Phone: Start: 07-18-2023 End: 07-18-[address] Ivette Grimes Work Phone: [facility]-Physical Therapy Work Phone: Start: 07-05-2023 Refill Ivette Grimes MD Work Phone: [facility] Comment on above: Refill Request Start: 06-20-2023 End: 06-20-[address] Ivette Grimes Work Phone: [facility] Work Phone: Start: 06-19-2023 End: 06-20-2023 Patient encounter procedure Umesh Danny Work Phone: Podiatry Comment on above: Plantar [...] Dr. Ivette Grimes Work Phone: [facility] Work Phone: Start: 06-06-2023 End: 06-06-2023 Patient encounter procedure Ivette Grimes MD Work Phone: [facility] Comment on above: Type 2 diabetes fred [...] encounter procedure Isiah Funes APRN.CNP Work Phone: [facility] Comment on above: Foot pain, right (Pr imary Dx) Start: 05-29-2023 Telephone encounter Nicole vaca PA-C Work Phone: Urgent Care Comment on above: Pt requesting Boot Start: 05-28-2023 End: 05-28-2023 Subsequent hospital visit by physician Xr [facility] Work Phone: Radiology Comment on above: Pain of right heel [ M79.671] Start: 05-20-2023 End: 05-20-2023 Emergency department patient visit Dr. Ivette Grimes Work Phone: [facility]-Emergency Department Work Phone: Start: 05-17-2023 End: 05-17-2023 Patient encounter procedure Fatuma Beckford PA-C Work Phone: Neurology Comment on above: Intractable chronic migraine without aura and without status migrainosus (Primary Dx); Post concussive syndrome Start: 05-09-[address] Gerald Grimes Work Phone: [facility]-Physical Therapy Work Phone: Start: 05-07-2023 Refill Ivette Grimes MD Work Phone: [facility] [place] Comment on above: Refill Request Start: 04-30-2023 End: 04-30-[address] Ivette Grimes Work Phone: [facility] Work Phone: Start: 04-16-2023 End: 04-16-[address] Ivette Grimes Work Phone: [facility] Work Phone: Start: 04-04-2023 Refill Ivette Grimes MD Work Phone: [facility] Comment on above: Refill Request Start: 04-02-2023 End: 04-02-[address] Ivette Grimes Work Phone: [facility] Work Phone: Start: 04-02-2023 End: 04-02-[address] Ivette Grimes Work Phone: [facility] Work Phone: Start: 04-02-2023 End: 04-02-[address] Ivette Grimes Work Phone: [facility]-Pulmonary Services/Neurology Work Phone: Start: 03-20-2023 Telephone encounter Fatuma perales PA-C Work Phone: Neurology Comment on above: Medication Authoriza tion (Botox renewal ) Start: 03-19-2023 End: 03-19-[address] Ivette Grimes Work Phone: [facility] Work Phone: Start: 03-12-2023 ambulatory Fatuma vásquez PA-C Work Phone: Neurology Comment on above: EEG Start: 03-09-2023 ambulatory Karen lópez SEARCH DIRECTOR.PROJECTION ENGINEER Work Phone: Neurology Comment on above: Botox Start: 03-05-[address] Gerald Grimes Work Phone: [facility]-Physical Therapy Start: 03-05-2023 End: 03-05-2023 Patient encounter [...] 03-04-2023 ambulatory Ivette Grimes MD Work Phone: [facility] Comment on above: Question regarding M ICROALBUMIN/CREATININE UR W RATIO (EXTERNAL) labs Start: 03-04-2023 E-mail encounter fro m caregiver Ivette Grimes MD Work Phone: [facility] Start: 03-04-2023 Telephone encounter Ivette Grimes MD Work Phone: [facility] Comment on above: Medication change re quested Start: 03-04-2023 End: 03-04-[address] Ivette Grimes Work Phone: [facility]-Laboratory, [facility] Pav[facility] Start: 03-01-2023 Telephone encounter Ivette Mejia MD Work Phone: Neurology Comment on above: Appointment Start: 03-01-2023 End: 03-01-2023 Patient encounter procedure Ivette Mejia MD Work Phone: Neurology Comment on above: Post concussion synd roberta (Primary Dx); LETITIA (obstructive sleep apnea) Start: 02-28-2023 End: 02-28-2023 Patient encounter procedure Ivette Grimes MD Work Phone: [facility] Comment on above: Soft tissue mass (Pr imary Dx); Post concussive syndrome; Essential (primary) hypertension; Type 2 diabetes mellitus with microalbuminuria, with long-term current use of insulin (HCC); Headache, unspecified headache type; Myalgia Start: 02-28-2023 End: 02-28-[address] Ivette Grimes Work Phone: [facility] Start: 02-28-2023 End: 02-28-2023 Subsequent hospital visit by physician Mri Radio [facility] W[facility] (I-Stat/1.5t) Work Phone: Radiology Comment on above: Post concussion synd roberta [F07.81] Start: 02-27-2023 Telephone encounter Ivette Grimes MD Work Phone: [facility] [place] Comment on above: Medication Request Start: 02-22-2023 Refill Ivette Grimes MD Work Phone: Family [facility] Comment on above: Refill Request Start: 02-15-2023 End: 02-15-2023 [facility] Grace Jacob Coronel APRN.PROJECTION ENGINEER Work Phone: Psychiatry Comment on above: VAHE (generalized anx iety disorder) (Primary Dx); Recurrent major depressive disorder, in full remission (HCC) Start: 02-14-2023 End: 02-14-[address] Ivette Grimes Work Phone: [facility] Start: 02-14-[address] Gerald Grimes Work Phone: [facility]-Physical Therapy Start: 02-11-2023 Refill Ivette Grimes MD Work Phone: [facility] Comment on above: Refill Request Start: 02-09-2023 Telephone encounter Ivette Grimes MD Work Phone: [facility] Comment on above: Results Start: 02-08-2023 End: 02-08-[address] Ivette Grimes Work Phone: [facility] Work Phone: Start: 02-08-2023 End: 02-08-[address] Ivette Grimes Work Phone: [facility] Start: 01-31-2023 Telephone encounter Ivette Grimes MD Work Phone: [facility] Comment on above: Orders Start: 01-31-2023 End: 01-31-[address] Ivette Grimes Work Phone: [facility] Start: 01-31-2023 End: 01-31-2023 Patient encounter procedure Ivette Grimes MD Work Phone: [facility] Comment on above: Post concussive synd roberta (Primary Dx); Headache, unspecified headache type; Injury of neck, subsequent encounter Start: 01-24-2023 End: 01-24-2023 ambulatory ELLE SANCHEZ Facility:[facility] Start: 01-24-2023 End: 01-24-2023 Patient encounter procedure Elle Sanchez MD Work Phone: [facility] Comment on above: [...] 01-17-[address] Ivette Grimes Work Phone: [facility] Work Phone: Start: 01-17-2023 End: 01-17-[address] Ivette Grimes Work Phone: [facility]-Physical Therapy Start: 01-17-2023 End: 01-17-2023 Patient encounter procedure Ivette Grimes MD Work Phone: [facility] Comment on above: Post concussive synd roberta (Primary Dx); Headache, unspecified headache type; Injury of neck, subsequent encounter Start: 01-17-2023 End: 01-17-[address] Ivette Grimes Work Phone: [facility] Start: 01-09-2023 Refill Ivette Grimes MD Work Phone: [facility] Comment on above: Refill Request Start: 01-08-2023 Telephone encounter Ivette Grimes MD Work Phone: [facility] Comment on above: Insurance Authorizat ion (Trulicity ) Start: 01-04-2023 End: 01-04-2023 Patient encounter procedure Ivette Grimes MD Work Phone: [facility] Comment on above: Post concussive synd roberta (Primary Dx); Headache, unspecified headache type Start: 01-03-2023 End: 01-03-[address] Ivette Grimes Work Phone: [facility] Start: 01-02-2023 End: 01-02-2023 ambulatory [facility] Facility:[facility] Start: 01-01-2023 Telephone encounter Ivette Grimes MD Work Phone: [facility] [place] Comment on above: Patient Update Start: 12-28-2022 End: 12-28-[address] Ivette Grimes Work Phone: [facility] Start: 12-26-2022 End: 12-26-2022 Patient encounter procedure Ivette Grimes MD Work Phone: [facility] Comment on above: Post concussion synd roberta (Primary Dx); Essential (primary) hypertension Refill Request Start: 12-24-2022 Refill Karen lópez APRN.CNP Work Phone: Neurology Comment on above: Refill Request MRI'S need prior aut horization with workman comp Start: 12-20-2022 End: 12-20-[address] Ivette Grimes Work Phone: [facility] Start: 12-14-2022 End: 12-14-2022 Patient encounter procedure Ivette Grimes MD Work Phone: [facility] Comment on above: Post concussion synd roberta (Primary Dx); Essential (primary) hypertension; Microalbuminuria; Type 2 diabetes mellitus without complication, with long-term current use of insulin (HCC) Start: 12-11-2022 Refill Ivette Grimes MD Work Phone: [facility] Comment on above: Refill Request Mri Start: 12-07-2022 End: 12-07-2022 Patient encounter procedure Ivette Mejia MD Work Phone: Neurology Comment on above: Post concussion synd roberta (Primary Dx); Intractable acute post-traumatic headache; Dizziness; Cervicalgia; History of migraine; LETITIA (obstructive sleep apnea) Start: 12-07-2022 End: 12-07-2022 Patient encounter procedure Ivette Grimes MD Work Phone: [facility] Comment on above: Headache, unspecifie d headache type (Primary Dx); Concussion with loss of consciousness, initial encounter Start: 12-06-2022 End: 12-06-[address] Ivette Grimes Work Phone: [facility] Medicine [facility] Start: 12-06-2022 End: 12-06-[address] Ivette Grimes Work Phone: [facility] Start: 12-04-2022 Telephone encounter Ivette Grimes MD Work Phone: [facility] Comment on above: Aprylck requesting records Start: 12-03-2022 End: 12-03-2022 Emergency department patient visit Dr. Ivette Grimes [facility] Start: 12-03-2022 Telephone encounter Ivette Grimes MD Work Phone: [facility] Comment on above: Patient Update Start: 11-30-2022 End: 11-30-2022 ambulatory Ivette Grimes MD Work Phone: [facility] Comment on above: Headache, unspecifie d headache type (Primary Dx); Concussion with loss of consciousness, initial encounter Start: 11-30-2022 End: 11-30-2022 Telemedicine consultation with patient Ivette Grimes MD Work Phone: [facility] Start: 11-29-2022 Telephone encounter Elle Sanchez MD Work Phone: [facility] Comment on above: Patient Question (Lo di appointment on 12/05/22) Start: 11-27-2022 End: 11-27-2022 Emergency department patient visit Dr. Ivette Grimes [facility] Phone[facility] Start: 11-27-2022 End: 11-27-[address] Ivette Grimes Work Phone: [facility] Comment on above: Worst headache of li fe (Primary Dx); Concussion with loss of consciousness, initial encounter Start: 11-27-[address] Gerald Grimes [facility] Start: 11-24-2022 End: 11-24-2022 Emergency department patient visit Dr. Ivette Grimes [facility] Phone[facility] Start: 11-23-2022 Refill Ivette Grimes MD Work Phone: [facility] Comment on above: Refill Request Start: 11-22-[address] Gerald Grimes Work Phone: [facility] Therapy Start: 11-22-2022 End: 11-22-[address] Ivette Grimes Work Phone: [facility] Start: 11-20-2022 Orders Only Elle Sanchez MD Work Phone: [facility] Comment on above: Chronic left shoulde r pain (Primary Dx); Adhesive capsulitis of left shoulder Start: 11-15-2022 Refill Ivette Grimes MD Work Phone: [facility] Comment on above: Refill Request Start: 11-08-2022 End: 11-08-2022 ambulatory ADELINA MASON Facility:[facility] Start: 11-08-2022 Telephone encounter Elle Sanchez MD Work Phone: [facility] Comment on above: Injections Start: 11-08-2022 End: 11-08-2022 Patient encounter procedure Adelina Mason SEARCH DIRECTOR.PROJECTION ENGINEER Work Phone: [facility] Comment on above: Chronic left shoulde r pain (Primary Dx); Adhesive capsulitis of left shoulder; Neuropathic pain; Myofascial pain Start: 11-08-2022 End: 11-08-[address] Ivette Grimes Work Phone: [facility] Start: 10-23-2022 End: 10-23-[address] Ivette Grimes Work Phone: [facility] Start: 10-16-2022 End: 10-16-[address] Ivette Grimes Work Phone: [facility] Start: 10-16-[address] Gerald Grimes Work Phone: [facility] Start: 10-15-2022 End: 10-15-[address] Ivette Grimes Work Phone: [facility] Work Phone: Start: 10-15-2022 End: 10-15-[address] Ivette Grimes Work Phone: [facility] Start: 10-12-2022 End: 10-12-2022 [facility] Grace Coronel SEARCH DIRECTOR.PROJECTION ENGINEER Work Phone: Psychiatry Comment on above: VAHE (generalized anx iety disorder) (Primary Dx); Major depressive disorder, recurrent episode, moderate (HCC) Start: 10-10-2022 ambulatory [facility] Comment on above: Botox Start: 10-10-2022 E-mail encounter fro m caregiver [facility] Start: 10-06-2022 Refill Tara alcantar APRN.PROJECTION ENGINEER Work Phone: Neurology Comment on above: Refill Request Start: 10-05-2022 Refill Ivette Grimes MD Work Phone: [facility] Comment on above: Refill Request Start: 10-02-2022 Telephone encounter Adelina Dalton Krystle lazaro SEARCH DIRECTOR.PROJECTION ENGINEER Work Phone: [facility] Comment on above: Appointment; Patient Question Start: 10-02-2022 End: 10-02-[address] Ivette Grimes Work Phone: [facility] Start: 09-19-2022 Refill Ivette Grimes MD Work Phone: [facility] Comment on above: Refill Request Start: 09-13-2022 End: 09-13-[address] Ivette Grimes Work Phone: [facility] Start: 09-13-[address] Gerald Grimes Work Phone: [facility] Start: 09-12-2022 ambulatory Ivette rGimes MD Work Phone: [facility] Start: 09-12-2022 Chart abstracting Rivka Hartman SURGICAL ASSISTANT CERTIFIED Work Phone: Adult Psychology Comment on above: Behavioral Health So cial Work Start: 09-12-2022 Follow-up encounter Ivette Grimes MD Work Phone: [facility] Comment on above: Follow up (couldn t reply to other message) Start: 09-06-2022 End: 09-06-2022 Refill Ivette Grimes MD Work Phone: [facility] Comment on above: Refill Request Start: 09-06-2022 End: 09-06-[address] Ivette Grimes Work Phone: [facility] Start: 09-04-2022 ambulatory Ivette Grimes MD Work Phone: [facility] Comment on above: Migraine/botox quest ion Start: 09-04-2022 End: 09-04-2022 Patient encounter procedure Ivette Grimes MD Work Phone: [facility] Comment on above: Lightheadedness (Carolyn alyssa Dx); Essential (primary) hypertension; Prolonged Q-T interval on ECG; Type 2 diabetes mellitus with microalbuminuria, with long-term current use of insulin (HCC); Fatty liver; LETITIA (obstructive sleep apnea) Start: 09-04-[address] Gerald Grimes Work Phone: [facility] Start: 09-03-2022 End: 09-03-2022 ambulatory Ivette Grimes MD Work Phone: [facility] Comment on above: Malaise (Primary Dx) Start: 09-03-2022 End: 09-03-2022 Telemedicine consultation with patient Ivette Grimes MD Work Phone: [facility] Start: 09-03-2022 E-mail encounter fro m caregiver [facility] Start: 09-03-2022 Patient encounter procedure [facility] Comment on above: Botox Appointment Start: 08-30-2022 Non-patient / Non-visit Dr. Regina Grimes Work Phone: [facility] Start: 08-30-2022 End: 08-30-[address] Ivette Grimes Work Phone: [facility] Work Phone: Start: 08-30-2022 End: 08-30-[address] Ivette Grimes Work Phone: [facility] Start: 08-29-2022 End: 08-29-[address] Ivette Grimes Work Phone: [facility] Work Phone: Start: 08-29-2022 End: 08-29-[address] Ivette Grimes Work Phone: [facility] Start: 08-27-2022 ambulatory Ivette Grimes MD Work Phone: [facility] Comment on above: Quick question Start: 08-21-2022 Telephone encounter Karen renee SEARCH DIRECTOR.PROJECTION ENGINEER Work Phone: Neurology Comment on above: Medication Authoriza tion (Botox Approved) Start: 08-21-2022 End: 08-21-[address] Ivette Grimes Work Phone: [facility] Start: 08-16-2022 End: 08-16-[address] Ivette Grimes Work Phone: [facility] Start: 08-16-[address] Gerald Grimes Work Phone: [facility] Start: 08-10-2022 End: 08-10-[address] Ivette Grimes Work Phone: [facility] Work Phone: Start: 08-10-2022 End: 08-10-[address] Ivette Grimes Work Phone: [facility] Start: 08-08-2022 Chart abstracting Ivette Martínez MD Work Phone: [facility] [place] Start: 08-08-2022 Telephone encounter Adelina lazaro SEARCH DIRECTOR.PROJECTION ENGINEER Work Phone: [facility] Comment on above: Patient Update Start: 08-08-2022 End: 08-08-[address] Ivette Grimes Work Phone: [facility] Work Phone: Start: 08-08-2022 End: 08-08-[address] Ivette Grimes Work Phone: [facility] Start: 08-07-[address] Gerald Grimes Work Phone: [facility] Start: 08-07-2022 End: 08-07-[address] Ivette Grimes Work Phone: [facility] Start: 08-06-2022 ambulatory Ivette Grimes MD Work Phone: [facility] Comment on above: Labs Start: 08-02-2022 ambulatory Karen lópez APRN.PROJECTION ENGINEER Work Phone: Neurology Comment on above: Migraines Start: 08-02-2022 End: 08-02-[address] Ivette Grimes Work Phone: [facility] Start: 08-02-2022 End: 08-02-2022 Patient encounter procedure Ivette Grimes MD Work Phone: [facility] Comment on above: Type 2 diabetes fred itus with microalbuminuria, with long-term current use of insulin (HCC) (Primary Dx); Fatty liver; LETITIA (obstructive sleep apnea); Microalbuminuria; Lumbar disc disorder; Prolonged Q-T interval on ECG; Fatigue, unspecified type Start: 08-01-2022 ambulatory Ivette Grimes MD Work Phone: [facility] Comment on above: Musculoskeletal Physician Start: 08-01-2022 Telephone encounter Karen renee APRN.PROJECTION ENGINEER Work Phone: Neurology Comment on above: Medication Authoriza tion (Botox referral) Start: 07-24-2022 End: 07-24-[address] Ivette Grimes Work Phone: [facility] Start: 07-24-2022 End: 07-24-[address] Ivette Grimes Work Phone: [facility] Work Phone: Start: 07-24-2022 End: 07-24-[address] Ivette Grimes Work Phone: [facility] Start: 07-23-2022 Refill Ivette Grimes MD Work Phone: [facility] Comment on above: Refill Request Start: 07-19-2022 Telephone encounter Elle Sanchez MD Work Phone: [facility] Comment on above: Patient Update (Inje ction questions ) Start: 07-19-2022 End: 07-19-2022 Patient encounter procedure Karen Ocasioaashish ROSEPROJECTION ENGINEER Work Phone: Neurology Comment on above: Intractable chronic migraine without aura and without status migrainosus (Primary Dx); Mixed migraine and muscle contraction headache Start: 07-19-2022 End: 07-19-2022 ambulatory ADELINANola ALBERTOYVES Facility:[facility] Start: 07-10-2022 Refill Krystle Barahona on PA-C Work Phone: [facility] Comment on above: Refill Request Start: 07-10-2022 End: 07-10-[address] Ivette Grimes Work Phone: [facility] Start: 07-03-2022 ambulatory Tara alcantar APRN.PROJECTION ENGINEER Work Phone: Neurology Comment on above: Medication Question Start: 06-28-2022 End: 06-28-[address] Ivette Grimes Work Phone: [facility] Start: 06-22-2022 Refill Ivette Grimes MD Work Phone: [facility] Comment on above: Refill Request Start: 06-07-2022 End: 06-07-2022 Patient encounter procedure Tara Gillette APRN.PROJECTION ENGINEER Work Phone: Neurology Comment on above: Intractable migraine without aura and without status migrainosus (Primary Dx); Medication overuse headache; LETITIA (obstructive sleep apnea); Class 3 severe obesity with body mass index (BMI) of 45.0 to 49.9 in adult, unspecified obesity type, unspecified whether serious comorbidity present (HCC) Start: 06-07-2022 Telephone encounter Tara Herndon APRN.PROJECTION ENGINEER Work Phone: Neurology Comment on above: Orders Start: 06-05-2022 ambulatory Ivette guzman MD Work Phone: Neurology Comment on above: Labs Start: 06-05-2022 E-mail encounter fro m caregiver Ivette Grimes MD Work Phone: [facility] Start: 06-05-[address] Luz Grimes Work Phone: [facility] Start: 06-04-2022 End: 06-04-[address] Ivette Grimes Work Phone: [facility] Start: 05-29-2022 Telephone encounter Tara Herndon SEARCH DIRECTOR.PROJECTION ENGINEER Work Phone: Neurology Comment on above: Appointment Start: 05-29-2022 End: 05-29-[address] Ivette Grimes Work Phone: [facility] Start: 05-24-2022 End: 05-24-2022 ambulatory ADELINA MASON Facility:[facility] Start: 05-24-2022 End: 05-24-2022 Patient encounter procedure Adelina Mason SEARCH DIRECTOR.PROJECTION ENGINEER Work Phone: [facility] Comment on above: Chronic left shoulde r pain (Primary Dx); Adhesive capsulitis of left shoulder; Primary osteoarthritis of left shoulder; Myofascial pain Start: 05-14-2022 End: 05-14-[address] Ivette Grimes Work Phone: [facility] Start: 05-11-2022 Telephone encounter Elle Sanchez MD Work Phone: [facility] Comment on above: Procedure Follow Up Start: 05-10-2022 End: 05-10-2022 ambulatory ELLE SANCHEZ Facility:[facility] Start: 05-10-2022 End: 05-10-2022 ambulatory Elle Sanchez MD Work Phone: [facility] Comment on above: Procedure Start: 05-10-2022 End: 05-10-2022 Patient encounter procedure Elle Sanchez MD Work Phone: [facility] Start: 05-08-2022 ambulatory Ivette Grimes MD Work Phone: [facility] Start: 05-08-2022 Follow-up encounter Ivette Grimes MD Work Phone: [facility] Comment on above: Follow up from last appointment Start: 05-04-2022 End: 05-04-[address] Ivette Grimes [facility] Start: 05-03-2022 Refill Ivette Grimes MD Work Phone: 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 Ivette Grimes Work Phone: [facility] Start: 04-19-2022 ambulatory Ivette Grimes MD Work Phone: [facility] Comment on above: Lyrica Start: 04-17-2022 End: 04-17-[address] Ivette Grimes Work Phone: [facility] Start: 04-16-2022 Refill Ivette Grimes MD Work Phone: [facility] Comment on above: Refill Request [employer] Start: 04-09-2022 End: 04-09-2022 Patient encounter procedure Ivette Mejia MD Work Phone: Neurology Comment on above: Intractable migraine without aura and without status migrainosus (Primary Dx); Medication overuse headache; LETITIA (obstructive sleep apnea); Class 3 severe obesity with body mass index (BMI) of 45.0 to 49.9 in adult, unspecified obesity type, unspecified whether serious comorbidity present ([facility]) Start: 04-05-2022 Refill Ivette Grimes MD Work Phone: [facility] Comment on above: Refill Request Start: 04-03-2022 End: 04-03-[address] Ivette Grimes Work Phone: [facility] Start: 03-30-2022 Refill Ivette Grimes MD Work Phone: [facility] Comment on above: Refill Request Start: 03-29-2022 Telephone encounter Elle Sanchez MD Work Phone: [facility] Comment on above: Injections Start: 03-29-2022 End: 03-29-2022 ambulatory ELLE SANCHEZ Facility:[facility] Start: 03-29-2022 End: 03-29-2022 Patient encounter procedure Elle Sanchez MD Work Phone: [facility] Comment on above: Myofascial pain (Carolyn alyssa Dx); Chronic left shoulder pain; Neuropathic pain; Adhesive capsulitis of left shoulder; Primary osteoarthritis of left shoulder Start: 03-16-2022 Refill Ivette Grimes MD Work Phone: [facility] Comment on above: Refill Request Start: 03-03-2022 Refill Krystle kessler PA-C Work Phone: [facility] Comment on above: Refill Request Start: 02-28-2022 End: 02-28-2022 Patient encounter procedure Ivette Grimes MD Work Phone: [facility] Comment on above: Upper back pain (Carolyn alyssa Dx); Acute midline low back pain without sciatica; Type 2 diabetes mellitus with microalbuminuria, with long-term current use of insulin ([facility]); LETITIA (obstructive sleep apnea); Lumbar disc disorder; Elevated BP without diagnosis of hypertension Start: 02-27-2022 ambulatory Ivette Grimes MD Work Phone: [facility] [place] Comment on above: ER Start: 02-23-2022 Refill Ivette Grimes MD Work Phone: [facility] [place] Comment on above: Refill Request Start: 02-19-2022 E-mail encounter fro m caregiver Ivette Mejia Jr., MD Work Phone: [facility] Start: 02-19-2022 Patient encounter procedure Ivette Mejia MD Work Phone: Neurology Comment on above: Request an Appointme nt Start: 02-08-2022 Chart abstracting Ivette Martínez MD Work Phone: [facility] [place] Start: 02-07-2022 ambulatory Ivette Grimes MD Work Phone: [facility] [place] Comment on above: Lab work Start: 02-07-2022 E-mail encounter fro m caregiver Ivette Grimes MD Work Phone: [facility] Start: 02-07-2022 Telephone encounter Ivette Grimes MD Work Phone: [facility] [place] Comment on above: Results Start: 02-07-2022 End: 02-07-[address] Ivette Grimes Work Phone: [facility], Future Start: 02-06-[address] Gerald Grimes Work Phone: [facility] Start: 02-06-2022 End: 02-06-[address] Ivette Grimes Work Phone: [facility] Start: 02-05-2022 ambulatory Ivette Grimes MD Work Phone: [facility] [place] Comment on above: Lab work Start: 01-29-2022 Telephone encounter Elle Sanchez MD Work Phone: [facility] [place] Comment on above: New Patient Start: 01-23-2022 End: 01-23-[address] Ivette Grimes Work Phone: [facility] Start: 01-09-2022 End: 01-09-[address] Ivette Grimes Work Phone: [facility] Start: 01-09-2022 Non-patient / Non-visit Dr. Regina Grimes Work Phone: [facility] Start: 01-09-2022 End: 01-09-[address] Ivette Grimes Work Phone: [facility] Start: 01-01-2022 End: 01-01-[address] Ivette Grimes Work Phone: [facility] Start: 12-26-2021 End: 12-26-[address] Ivette Grimes Work Phone: [facility] Start: 11-29-2021 End: 11-29-[address] Ivette Grimes Work Phone: [facility] Start: 11-23-2021 End: 11-23-[address] Ivette Grimes Work Phone: [facility] Start: 11-21-2021 End: 11-21-[address] Ivette Grimes Work Phone: [facility] Start: 11-09-2021 End: 11-09-[address] Ivette Grimes Work Phone: [facility] Start: 10-24-2021 End: 10-24-[address] Ivtete Grimes Work Phone: [facility] Start: 12-06-2012 End: 02-22-2014 Patient encounter status Stephanie Paz APRN.CNP Work Phone: [facility] Start: 01-23-2010 End: 02-22-2014 Patient encounter status Stephanie Paz SEARCH DIRECTOR.PROJECTION ENGINEER Work Phone: [facility] Procedures Date Procedure Procedure Detail Performing Clinician Start: 06-23-2025 Procedure on shoulder joint Dr. Ivette Grimes MD Work Phone: Start: 06-09-2025 Hemoglobin A1c/Hemoglobin.total in Blood [facility] Start: 06-09-[address] (FOR REMOTE [facility] USE) [facility] Start: 06-05-2025 Serum [...] modality 1/> areas elec stimj unattended Bibiana Rehman DC Work Phone: Start: 09-05-2017 End: 09-05-2017 Appl modality 1/> areas traction mechanical Bibiana Love Dossi DC Work Phone: Start: 09-05-2017 End: 09-05-2017 Chiropractic manipulative tx spinal 1-2 regions Bibiana Rehman DC Work Phone: Start: 09-03-2017 End: 09-05-2017 [...] Visit Annual PCP Team Chronic Disease Visit [facility] Start: 03-02-2026 Annual PCP Team Chronic Disease Visit Annual PCP Team Chronic Disease Visit [facility] Start: 02-04-2026 Glaucoma screening Dilated Retinal Exam [facility] Start: 01-22-2026 Annual PCP Team Chronic Disease Visit Annual PCP Team Chronic Disease Visit [facility] Start: 01-22-2026 BP Controlled (<130/80) BP Controlled (<130/80) [facility] Start: 01-22-2026 Depression Screening Depression Screening [facility] Start: 12-11-2025 Annual PCP Team Chronic Disease Visit Annual PCP Team Chronic Disease Visit [facility] Start: 12-10-2025 Hemoglobin A1c measurement HbA1C [facility] michaela Start: 10-19-2025 Annual PCP Team Chronic Disease Visit Annual PCP Team Chronic Disease Visit [facility] Start: 09-24-2025 Annual PCP Team Chronic Disease Visit Annual PCP Team Chronic Disease Visit [facility] Start: 08-05-2025 Annual PCP Team Chronic Disease Visit Annual PCP Team Chronic Disease Visit [facility] Start: 08-05-2025 BP Controlled (<130/80) BP Controlled (<130/80) [facility] Start: 08-05-2025 Covid-19 Vaccine () Covid-19 Vaccine () [facility] Comment on above: Postponed from 07/05/2024 (Declined at t his time) Start: 08-05-2025 Diabetic foot examination Diabetic Foot Exam [facility] Start: 08-05-2025 Pneumococcal vaccination Pneumococcal Vaccine (2 of 2 - PCV) [facility] Comment on above: Postponed from 07/28/2020 (Declined at t his time) Start: 08-05-2025 Urine microalbumin profile DTaP,Tdap,Td Vaccine (2 - Td or Tdap) [facility] Comment on above: Postponed from 06/01/2023 (Declined at t his time) Start: 08-04-2025 End: 08-04-2025 Patient encounter procedure 08/04/2025 4:30 PM EDT Office Visit Neurology [address], [place] [id number] Fatuma Beckford PA-C [address] [place], [place] [id number] botox Neurology Comment on above: botox Start: 08-03-2025 End: 08-03-2025 Patient encounter procedure 08/03/2025 2:20 PM EDT Office Visit OB/Gynecology [address] [place], [place] [id number] Galina Camacho MD [address] [place], [place] [id number] annual with pap OB/Gynecology Comment on above: annual with pap Start: 07-31-2025 Hemoglobin A1c measurement HbA1C [facility] [facility] Start: 07-08-2025 End: 10-07-2025 Microalbumin/Creatinine [Mass Ratio] in Urine ALBUMIN/CREATININE RATIO, URINE Lab Routine Type 2 diabetes mellitus with microalbuminuria, with long-term current use of insulin (HCC) Expected: 07/08/2025, Expires: 10/07/2025 [facility] Comment on above: Expected: 07/08/2025, Expires: Start: 07-05-2025 Influenza vaccination Influenza Vaccine (#1) [facility] Start: 07-05-2025 End: 10-04-2025 Urinalysis complete panel - Urine URINALYSIS, WITH MICROSCOPIC Lab Routine Flank pain Proteinuria, unspecified type Expected: 07/05/2025, Expires: 10/04/2025 [facility] Comment on above: Expected: 07/05/2025, Expires: Start: 07-04-2025 Hepatitis B screening Urine Albumin:Creatinine Ratio [facility] Start: 07-04-2025 Hepatitis B surface antibody level LDL Cholesterol [facility] Start: 07-03-2025 Annual PCP Team Chronic Disease Visit Annual PCP Team Chronic Disease Visit [facility] Start: 06-23-2025 Patient discharge [facility] Start: 06-23-2025 Application of ice collar, cap or bag [facility] Start: 06-23-2025 Assessment of risk of venous thromboembolism [facility] Start: 06-23-2025 Catheterization of vein [facility] Start: 06-23-2025 Continuous positive airway pressure ventilation treatment [facility] Start: 06-23-2025 Following clinical pathway protocol [facility] Start: 06-23-2025 Incentive spirometry [facility] Start: 06-23-2025 Introduction of urinary catheter [facility] Start: 06-23-2025 Vital signs measurements [facility] Start: 06-23-2025 [facility] Start: 06-07-2025 End: 09-06-2025 Cholesterol in LDL [Mass/volume] in Serum or Plasma LDL CHOLESTEROL DIR Lab Routine Type 2 diabetes mellitus with microalbuminuria, with long-term current use of insulin (HCC) Essential (primary) hypertension Expected: 06/07/2025, Expires: 09/06/2025 [facility] Comment on above: Expected: 06/07/2025, Expires: Start: 06-07-2025 End: 09-06-2025 Hemoglobin A1c in Blood HEMOGLOBIN A1C Lab Routine Type 2 diabetes mellitus with microalbuminuria, with long-term current use of insulin (HCC) Expected: 06/07/2025, Expires: 09/06/2025 [facility] Work Phone: Comment on above: Expected: 06/07/2025, Expires: Start: 06-03-2025 Annual PCP Team Chronic Disease Visit Annual PCP Team Chronic Disease Visit [facility] Start: 05-03-2025 Influenza vaccination Influenza Vaccine (#1) [facility] Comment on above: Postponed from 07/05/2024 (Declined at t his time) Start: 04-21-2025 End: 04-21-2025 Patient encounter procedure 04/21/2025 2:00 PM EDT Office Visit Neurology [address] [place] [address] Kristen Enriquez APRN.PROJECTION ENGINEER [address] [place] [address] botox Neurology Comment on above: botox Start: 03-09-2025 End: 03-09-2025 Patient encounter procedure 03/09/2025 7:25 AM EDT [facility] Neurology [address] [place] [id number] Amanda Arteaga PA-C [address] [facility] [address] [place] [address] consult botox injection for headache Neurology Comment on above: consult botox injection for headache Start: 01-22-2025 End: 04-23-2025 Basic metabolic 2000 panel - Serum or Plasma BASIC METABOLIC PANEL Lab Routine Essential (primary) hypertension Expected: 01/22/2025, Expires: 04/23/2025 [facility] Comment on above: Expected: 01/22/2025, Expires: Start: 01-22-2025 End: 04-23-2025 Hemoglobin A1c in Blood HEMOGLOBIN A1C Lab Routine Type 2 diabetes mellitus with microalbuminuria, with long-term current use of insulin (HCC) Expected: 01/22/2025, Expires: 04/23/2025 [facility] Work Phone: Comment on above: Expected: 01/22/2025, Expires: 5 Start: 01-01-2025 [facility] Start: 12-26-2024 BP Controlled (<130/80) BP Controlled (<130/80) [facility] Start: 12-25-2024 End: 12-25-2024 Patient encounter procedure 12/25/2024 10:15 AM EST Office Visit OB/Gynecology [address] [place], [place] [id number] Karol Mancera APRN.PROJECTION ENGINEER [address] [place] [address] annual OB/Gynecology Comment on above: annual Start: 12-17-2024 End: 12-17-2024 ambulatory 12/17/2024 9:40 AM EST Formerly [facility] [address] [place] [address] Ivette Grimes MD [address] [place] [address] General [facility] Comment on above: General Start: 12-11-2024 End: 03-12-2025 Comprehensive metabolic 2000 panel - Serum or Plasma COMPREHENSIVE METABOLIC PANEL Lab Routine Hypokalemia Expected: 12/11/2024, Expires: 03/12/2025 [facility] Comment on above: Expected: 12/11/2024, Expires: Start: 12-09-2024 End: 12-09-2024 Patient encounter procedure 12/09/2024 2:20 PM EST Office Visit OB/Gynecology [address] [place] [address] Galina Camacho MD [address] [place] [address] Check up OB/Gynecology Comment on above: Check up Start: 12-09-2024 Annual PCP Team Chronic Disease Visit Annual PCP Team Chronic Disease Visit [facility] Start: 12-09-2024 BP Controlled (<130/80) BP Controlled (<130/80) [facility] Start: 12-09-2024 Covid-19 Vaccine ( season) Covid-19 Vaccine () [facility] Comment on above: Postponed from 07/05/2023 (Declined at t his time) Start: 12-09-2024 Depression Screening Depression Screening [facility] Start: 11-11-2024 [facility] Start: 11-06-2024 Annual PCP Team Chronic Disease Visit Annual PCP Team Chronic Disease Visit [facility] Start: 10-20-2024 End: 10-20-2024 Patient encounter procedure 10/20/2024 2:20 PM EST Office Visit OB/Gynecology [address] [place], [place] [address] Galina Camacho MD [address] [place], [place] [phone] Check up OB/Gynecology Comment on above: Check up Start: 09-13-2024 BP Controlled (<130/80) BP Controlled (<130/80) [facility] Start: 09-12-2024 Glaucoma screening Dilated Retinal Exam [facility] Start: 09-10-2024 End: 09-10-2024 Patient encounter procedure Neurology Comment on above: botox Start: 09-03-2024 End: 09-03-2024 Patient encounter procedure 09/03/2024 1:00 PM EDT Office Visit Neurology [address] [place] [phone] Fatuma Beckford PA-C [address] [place], [place] [id number] botox Neurology Comment on above: botox Start: 08-05-2024 Depression Screening Depression Screening [facility] Comment on above: Postponed from 2000 (Declined at t his time) Start: 08-05-2024 End: 08-05-2024 Patient encounter procedure 08/05/2024 8:00 AM EDT Office Visit Family Medicine [place] [address] [place], [place] [id number] Ivette Grimes MD [address] [place], [place] [phone] [facility] [place] Comment on above: My health Start: 07-15-2024 Annual PCP Team Chronic Disease Visit Annual PCP Team Chronic Disease Visit [facility] Start: 07-05-2024 Covid-19 Vaccine () Covid-19 Vaccine () [facility] Start: 07-05-2024 Covid-19 Vaccine (4 - 2024-25 season) Covid-19 Vaccine ( season) [facility] Start: 07-05-2024 [facility] Start: 07-03-2024 End: 10-02-2024 CBC W Auto Differential panel - Blood COMPLETE BLOOD COUNT AND DIFFERENTIAL Lab Routine Type 2 diabetes mellitus with microalbuminuria, with long-term current use of insulin (HCC) Expected: 07/03/2024, Expires: 10/02/2024 [facility] Work Phone: Comment on above: Expected: 07/03/2024, Expires: Start: 07-03-2024 End: 10-02-2024 Comprehensive metabolic 2000 panel - Serum or Plasma COMPREHENSIVE METABOLIC PANEL Lab Routine Type 2 diabetes mellitus with microalbuminuria, with long-term current use of insulin (HCC) Expected: 07/03/2024, Expires: 10/02/2024 [facility] Comment on above: Expected: 07/03/2024, Expires: Start: 07-03-2024 End: 10-02-2024 Hemoglobin A1c in Blood HEMOGLOBIN A1C Lab Routine Type 2 diabetes mellitus with microalbuminuria, with long-term current use of insulin (HCC) Expected: 07/03/2024, Expires: 10/02/2024 [facility] Comment on above: Expected: 07/03/2024, Expires: Start: 07-03-2024 End: 10-02-2024 Lipid 1996 panel - Serum or Plasma LIPID PANEL BASIC Lab Routine Type 2 diabetes mellitus with microalbuminuria, with long-term current use of insulin (HCC) Expected: 07/03/2024, Expires: 10/02/2024 [facility] Comment on above: Expected: 07/03/2024, Expires: Start: 07-03-2024 End: 10-02-2024 Microalbumin/Creatinine [Mass Ratio] in Urine ALBUMIN/CREATININE RATIO, URINE Lab Routine Type 2 diabetes mellitus with microalbuminuria, with long-term current use of insulin (HCC) Expected: 07/03/2024, Expires: 10/02/2024 [facility] Comment on above: Expected: 07/03/2024, Expires: Start: 06-06-2024 ANNUAL PCP TEAM CHRONIC DISEASE VISIT ANNUAL PCP TEAM CHRONIC DISEASE VISIT [facility] Start: 06-06-2024 COVID-19 VACCINE (4 - Moderna series) COVID-19 VACCINE (4 - Moderna series) [facility] Comment on above: Postponed from 12/13/2021 (Declined at t his time) Start: 06-06-2024 Diabetic foot examination Diabetic Foot Exam [facility] Start: 06-06-2024 Urine microalbumin profile [facility] michaela Comment on above: Postponed from 06/01/2023 (Declined at t his time) Start: 06-05-2024 Hemoglobin A1c measurement HbA1C [facility] Start: 05-17-2024 BP CONTROLLED (<130/80) BP CONTROLLED (<130/80) [facility] Start: 03-26-2024 End: 03-26-2024 Patient encounter procedure 03/26/2024 10:30 AM EDT Office Visit Neurology [address] [place] [address] [place] [phone] Fatuma Beckford PA-C [address] [place] [address] botox 4 of 4 Neurology Comment on above: botox 4 of 4 Start: 03-05-2024 BP CONTROLLED (<130/80) BP CONTROLLED (<130/80) [facility] Start: 03-05-2024 PNEUMOCOCCAL (2 - PCV) PNEUMOCOCCAL (2 - PCV) [facility] Comment on above: Postponed from 07/28/2020 (Declined at t his time) Start: 03-05-2024 Pneumococcal vaccination [facility] Comment on above: Postponed from 07/28/2020 (Declined at t his time) Start: 03-04-2024 Hepatitis B screening URINE ALBUMIN:CREATININE RATIO [facility] Start: 02-29-2024 ANNUAL PCP TEAM CHRONIC DISEASE VISIT ANNUAL PCP TEAM CHRONIC DISEASE VISIT [facility] Start: 02-04-2024 Bacteria identified in Urine by Culture [facility] Start: 02-04-2024 [facility] Start: 02-04-2024 [facility] Start: 02-01-2024 ANNUAL PCP TEAM CHRONIC DISEASE VISIT ANNUAL PCP TEAM CHRONIC DISEASE VISIT [facility] Start: 01-18-2024 ANNUAL PCP TEAM CHRONIC DISEASE VISIT ANNUAL PCP TEAM CHRONIC DISEASE VISIT [facility] Start: 01-05-2024 ANNUAL PCP TEAM CHRONIC DISEASE VISIT ANNUAL PCP TEAM CHRONIC DISEASE VISIT [facility] Start: 12-26-2023 ANNUAL PCP TEAM CHRONIC DISEASE VISIT ANNUAL PCP TEAM CHRONIC DISEASE VISIT [facility] Start: 12-18-2023 HPV TESTING HPV TESTING [facility] Start: 12-18-2023 PAP TESTING PAP TESTING [facility] Start: 12-18-2023 Screening for malignant neoplasm of cervix [facility] Start: 12-14-2023 ANNUAL PCP TEAM CHRONIC DISEASE VISIT ANNUAL PCP TEAM CHRONIC DISEASE VISIT [facility] Start: 12-07-2023 ANNUAL PCP TEAM CHRONIC DISEASE VISIT ANNUAL PCP TEAM CHRONIC DISEASE VISIT [facility] Start: 12-07-2023 End: 02-06-2024 CBC W Auto Differential panel - Blood CBC + DIFF Lab Routine Type 2 diabetes mellitus with microalbuminuria, with long-term current use of insulin ([facility]) Expected: 12/07/2023, Expires: 02/06/2024 [facility] Work Phone: Comment on above: Expected: 12/07/2023, Expires: Start: 12-07-2023 End: 02-06-2024 Comprehensive metabolic 2000 panel - Serum or Plasma COMP METABOLIC PANEL Lab Routine Type 2 diabetes mellitus with microalbuminuria, with long-term current use of insulin ([facility]) Expected: 12/07/2023, Expires: 02/06/2024 [facility] Work Phone: Comment on above: Expected: 12/07/2023, Expires: Start: 12-07-2023 End: 02-06-2024 Hemoglobin A1c in Blood HGB A1C Lab Routine Type 2 diabetes mellitus with microalbuminuria, with long-term current use of insulin (HCC) Expected: 12/07/2023, Expires: 02/06/2024 [facility] Work Phone: Comment on above: Expected: 12/07/2023, Expires: Start: 12-07-2023 End: 02-06-2024 Lipid 1996 panel - Serum or Plasma LIPID PANEL BASIC Lab Routine Type 2 diabetes mellitus with microalbuminuria, with long-term current use of insulin (HCC) Expected: 12/07/2023, Expires: 02/06/2024 [facility] Work Phone: Comment on above: Expected: 12/07/2023, Expires: Start: 11-30-2023 ANNUAL PCP TEAM CHRONIC DISEASE VISIT ANNUAL PCP TEAM CHRONIC DISEASE VISIT [facility] Start: 11-27-2023 ANNUAL PCP TEAM CHRONIC DISEASE VISIT ANNUAL PCP TEAM CHRONIC DISEASE VISIT [facility] Start: 11-04-2023 Behavioral Health Screening Behavioral Health Screening [facility] Start: 11-04-2023 Depression Assessment Depression Assessment [facility] Start: 10-31-2023 BP CONTROLLED (<130/80) BP CONTROLLED (<130/80) [facility] Start: 10-27-2023 [facility] Start: 09-04-2023 ANNUAL PCP TEAM CHRONIC DISEASE VISIT ANNUAL PCP TEAM CHRONIC DISEASE VISIT [facility] Start: 09-04-2023 Hemoglobin A1c measurement HbA1C [facility] Start: 09-04-2023 Hemoglobin A1c/Hemoglobin.total in Blood HBA1C [facility] Start: 09-03-2023 ANNUAL PCP TEAM CHRONIC DISEASE VISIT ANNUAL PCP TEAM CHRONIC DISEASE VISIT [facility] Start: 08-10-[address] [facility] Start: 08-10-2023 Screening for malignant neoplasm of breast Mammogram Screening [facility] Start: 08-08-2023 Hepatitis B surface antibody level LDL CHOLESTEROL [facility] Start: 08-07-2023 Patient discharge [facility] Start: 08-06-2023 Telepractice consultation [facility] Start: 08-05-2023 End: 08-05-2023 [facility] Start: 08-05-2023 Following clinical pathway protocol [facility] Start: 08-05-2023 Assessment of risk of venous thromboembolism [facility] Start: 08-05-2023 Cardiac monitoring [facility] Start: 08-05-2023 Catheterization of vein [facility] Start: 08-05-2023 Continuous pulse oximetry [facility] Start: 08-05-2023 Elevation of head of bed [facility] Start: 08-05-2023 Exercises [facility] Start: 08-05-2023 Implementation of planned interventions [facility] Start: 08-05-2023 Insertion of catheter into peripheral vein [facility] Start: 08-05-2023 Measuring intake and output [facility] Start: 08-05-2023 Notification of physician [facility] Start: 08-05-2023 Oxygen therapy [facility] Start: 08-05-2023 Providing care according to standard [facility] Start: 08-05-2023 Referral to occupational therapist [facility] Start: 08-05-2023 Referral to service [facility] Start: 08-05-2023 Tobacco use cessation education [facility] Start: 08-05-2023 Vital signs measurements [facility] Start: 08-05-2023 Verification routine [facility] Start: 08-05-2023 Admission procedure [facility] Start: 08-05-2023 Oxygen therapy [facility] Start: 08-05-2023 [facility] Start: 08-05-2023 Inhalation therapy procedure [facility] Start: 08-05-2023 Patient referral to dietitian [facility] Start: 08-02-2023 3 comp foot exam completed [facility] Start: 08-02-2023 ANNUAL PCP TEAM CHRONIC DISEASE VISIT ANNUAL PCP TEAM CHRONIC DISEASE VISIT [facility] Start: 08-02-2023 Diabetic foot examination Diabetic Foot Exam [facility] Start: 07-05-2023 Covid-19 Vaccine ( season) Covid-19 Vaccine () [facility] Start: 07-05-[address] [facility] Start: 06-07-2023 End: 08-07-2023 Cobalamin (Vitamin B12) [Mass/volume] in Serum or Plasma VITAMIN B12 BLOOD Lab Routine Memory loss Attention and concentration deficit Expected: 06/07/2023, Expires: 08/07/2023 [facility] Work Phone: Comment on above: Expected: 06/07/2023, Expires: Start: 06-07-2023 End: 08-07-2023 Thyrotropin [Units/volume] in Serum or Plasma TSH BLD Lab Routine Memory loss Attention and concentration deficit Expected: 06/07/2023, Expires: 08/07/2023 [facility] Work Phone: Comment on above: Expected: 06/07/2023, Expires: Start: 06-07-2023 End: 08-07-2023 Thyroxine (T4) free [Mass/volume] in Serum or Plasma T4 FREE/FREE THYROX Lab Routine Memory loss Attention and concentration deficit Expected: 06/07/2023, Expires: 08/07/2023 [facility] Work Phone: Comment on above: Expected: 06/07/2023, Expires: Start: 06-01-2023 Urine microalbumin profile [facility] Start: 05-01-2023 ANNUAL PCP TEAM CHRONIC DISEASE VISIT ANNUAL PCP TEAM CHRONIC DISEASE VISIT [facility] Start: 04-02-2023 [facility] Start: 03-29-2023 Adult depression screening assessment DEPRESSION SCREENING [facility] Start: 02-28-2023 End: 04-30-2023 ALBUMIN/CREAT RATIO RND UR ALBUMIN/CREAT RATIO RND UR Lab Routine Type 2 diabetes mellitus with microalbuminuria, with long-term current use of insulin (HCC) Expected: 02/28/2023, Expires: 04/30/2023 [facility] Work Phone: Comment on above: Expected: 02/28/2023, Expires: Start: 02-28-2023 ANNUAL PCP TEAM CHRONIC DISEASE VISIT ANNUAL PCP TEAM CHRONIC DISEASE VISIT [facility] Start: 02-28-2023 End: 04-30-2023 Basic metabolic 2000 panel - Serum or Plasma BASIC METABOLIC PNL Lab Routine Myalgia Expected: 02/28/2023, Expires: 04/30/2023 [facility] Work Phone: Comment on above: Expected: 02/28/2023, Expires: Start: 02-28-2023 End: 04-30-2023 CBC W Auto Differential panel - Blood CBC + DIFF Lab Routine Myalgia Expected: 02/28/2023, Expires: 04/30/2023 [facility] Work Phone: Comment on above: Expected: 02/28/2023, Expires: 3 Start: 02-28-2023 End: 04-30-2023 Hemoglobin A1c in Blood HGB A1C Lab Routine Type 2 diabetes mellitus with microalbuminuria, with long-term current use of insulin (HCC) Expected: 02/28/2023, Expires: 04/30/2023 [facility] Work Phone: Comment on above: Expected: 02/28/2023, Expires: 3 Start: 02-28-2023 End: 04-30-2023 Iron and Iron binding capacity panel - Serum or Plasma IRON + TIBC Lab Routine Myalgia Expected: 02/28/2023, Expires: 04/30/2023 [facility] Work Phone: Comment on above: Expected: 02/28/2023, Expires: 3 Start: 02-28-2023 End: 04-30-2023 Magnesium [Mass/volume] in Serum or Plasma MAGNESIUM BLD Lab Routine Myalgia Expected: 02/28/2023, Expires: 04/30/2023 [facility] Work Phone: Comment on above: Expected: 02/28/2023, Expires: 3 Start: 02-07-2023 Hepatitis B screening URINE ALBUMIN:CREATININE RATIO [facility] Start: 02-07-2023 Hepatitis B surface antibody level LDL CHOLESTEROL [facility] Start: 02-06-2023 Hemoglobin A1c/Hemoglobin.total in Blood HBA1C [facility] Start: 01-25-2023 ANNUAL PCP TEAM CHRONIC DISEASE VISIT ANNUAL PCP TEAM CHRONIC DISEASE VISIT [facility] Start: 11-04-2022 DEPRESSION ASSESSMENT DEPRESSION ASSESSMENT [facility] Start: 10-16-2022 End: 12-16-2022 Thyrotropin [Units/volume] in Serum or Plasma TSH BLD Lab Routine Lightheadedness Expected: 10/16/2022, Expires: 12/16/2022 [facility] Work Phone: Comment on above: Expected: 10/16/2022, Expires: 3 Start: 10-06-2022 Adult depression screening assessment DEPRESSION SCREENING [facility] Start: 10-05-2022 Glaucoma screening Dilated Retinal Exam [facility] Start: 10-05-2022 Hepatitis C antibody, confirmatory test DILATED RETINAL EXAM [facility] Start: 09-04-2022 End: 11-04-2022 Basic metabolic 2000 panel - Serum or Plasma BASIC METABOLIC PNL Lab Routine Lightheadedness Expected: 09/04/2022, Expires: 11/04/2022 [facility] Work Phone: Comment on above: Expected: 09/04/2022, Expires: 3 Start: 09-04-2022 End: 11-04-2022 CBC W Auto Differential panel - Blood CBC + DIFF Lab Routine Lightheadedness Expected: 09/04/2022, Expires: 11/04/2022 [facility] Work Phone: Comment on above: Expected: 09/04/2022, Expires: 3 Start: 08-16-2022 Patient referral [facility] Work Phone: Start: 08-09-2022 Hemoglobin A1c/Hemoglobin.total in Blood HBA1C [facility] Start: 08-02-2022 End: 10-02-2022 Hemoglobin A1c in Blood HGB A1C Lab Routine Type 2 diabetes mellitus with microalbuminuria, with long-term current use of insulin (HCC) Expected: 08/02/2022, Expires: 10/02/2022 [facility] Work Phone: Comment on above: Expected: 08/02/2022, Expires: 2 Start: 08-02-2022 End: 10-02-2022 Lipid 1996 panel - Serum or Plasma LIPID PANEL BASIC Lab Routine Type 2 diabetes mellitus with microalbuminuria, with long-term current use of insulin (HCC) Expected: 08/02/2022, Expires: 10/02/2022 [facility] Work Phone: Comment on above: Expected: 08/02/2022, Expires: 2 Start: 08-02-2022 End: 10-02-2022 Thyrotropin [Units/volume] in Serum or Plasma TSH BLD Lab Routine Fatigue, unspecified type Expected: 08/02/2022, Expires: 10/02/2022 [facility] Work Phone: Comment on above: Expected: 08/02/2022, Expires: 2 Start: 07-20-2022 3 comp foot exam completed DIABETIC FOOT EXAM [facility] Start: 07-05-2022 Influenza vaccination INFLUENZA (#1) [facility] Start: 06-28-2022 Hepatitis B surface antibody level LDL CHOLESTEROL [facility] Start: [address] [facility] Start: 06-05-2022 End: 08-05-2022 Bacteria identified in Urine by Culture URINE CULTURE Microbiology Routine Proteinuria, unspecified type Leukocytosis, unspecified type Expected: 06/05/2022, Expires: 08/05/2022 [facility] Work Phone: Comment on above: Expected: 06/05/2022, Expires: 2 Start: 06-05-2022 End: 08-05-2022 Urinalysis complete panel - Urine URINALYSIS, WITH MICROSCOPIC Lab Routine Proteinuria, unspecified type Leukocytosis, unspecified type Expected: 06/05/2022, Expires: 08/05/2022 [facility] Work Phone: Comment on above: Expected: 06/05/2022, [...] Medication overuse headache Expected: 04/09/2022, Expires: 06/09/2022 [facility] Work Phone: Comment on above: Expected: 04/09/2022, [...] Medication overuse headache Expected: 04/09/2022, Expires: 06/09/2022 [facility] Work Phone: Comment on above: Expected: 04/09/2022, Expires: 2 Start: 12-26-2021 Patient referral [facility] Work Phone: Start: 12-13-2021 COVID-19 VACCINE (4 - Booster for Moderna series) COVID-19 VACCINE (4 - Booster for Moderna series) [facility] Start: 12-13-2021 COVID-19 VACCINE (4 - Moderna series) COVID-19 VACCINE (4 - Moderna series) [facility] Start: 11-04-2021 DEPRESSION ASSESSMENT DEPRESSION ASSESSMENT [facility] Start: 08-11-2021 Hepatitis B screening URINE ALBUMIN:CREATININE RATIO [facility] Start: 07-15-2021 Hemoglobin A1c/Hemoglobin.total in Blood HBA1C [facility] Start: 07-28-2020 PNEUMOCOCCAL (2 - PCV) PNEUMOCOCCAL (2 - PCV) [facility] Start: 07-28-2020 Pneumococcal vaccination Pneumococcal Vaccine (2 of 2 - PCV) [facility] Start: 09-24-2017 End: 09-24-[address] [facility] Work Phone: Start: 09-23-2017 End: 09-23-[address] [facility] Work Phone: Start: 09-17-2017 End: 09-17-[address] [facility] Work Phone: Start: 09-16-2017 End: 09-16-[address] [facility] Work Phone: Start: 09-12-2017 End: 09-12-[address] [facility] Work Phone: Start: 09-10-2017 End: 09-10-[address] [facility] Work Phone: Start: 09-09-2017 End: 09-09-[address] [facility] Work Phone: Start: 09-05-2017 End: 09-05-[address] [facility] Work [...] [facility] Work Phone: Start: 08-06-2017 End: 08-06-2017 Follow up Appt 3x/week Follow up Appt 3x/week [facility] Work Phone: Start: 07-02-2017 End: 07-02-2017 Mri spinal canal lumbar w/o contrast material MRI Lumbar Spine [facility] Work Phone: Start: 06-06-2017 End: 06-06-2017 Mri spinal canal lumbar w/o contrast material MRI Lumbar Spine [facility] Work Phone: Start: 05-10-2017 End: 05-10-2017 Radex spine lumbosacral minimum 4 views X-Ray, Spine, Lumbosacral 2-[address] [facility] Work Phone: Start: 05-09-2017 End: 05-09-2017 Physical Therapy General Physical Therapy [facility], [address] [place] [address], [id number] [facility] Work Phone: Start: 2001 HEPATITIS B (1 of 3 - Risk 3-dose series) HEPATITIS B (1 of 3 - Risk 3-dose series) [facility] Start: 2000 BP CONTROLLED (<130/80) BP CONTROLLED (<130/80) [facility] Start: 2000 Depression Screening Depression Screening [facility] Start: 1982 HEPATITIS B (1 of 3 - 3-dose series) HEPATITIS B (1 of 3 - 3-dose series) [facility] Chiropractic manipulation [facility] End: 03-29-2024 Ct soft tissue neck w/contrast material CT NECK SOFT TISSUE W IVCON Radiology Routine Soft tissue mass 1 Occurrences starting 02/28/2023 until 03/29/2024 [facility] Work Phone: Comment on above: 1 Occurrences starting 02/28/2023 until 03/29/2024 End: 12-17-2025 DBT Breast - bilateral screening FLASH SCREENING W JAQUELIN Radiology Routine Encounter for screening mammogram for breast cancer 1 Occurrences starting 11/17/2024 until 12/17/2025 [facility] Work Phone: Comment on above: 1 Occurrences starting 11/17/2024 until 12/17/2025 End: 07-07-2026 DBT Breast - bilateral screening FLASH SCREENING W JAQUELIN Radiology Routine Encounter for screening mammogram for breast cancer 1 Occurrences starting 06/07/2025 until 07/07/2026 [facility] Comment on above: 1 Occurrences starting 06/07/2025 until 07/07/2026 End: 09-04-2023 ECG COMPLETE ECG COMPLETE ECG Routine Prolonged Q-T interval on ECG 1 Occurrences starting 09/04/2022 until 09/04/2023 [facility] Work Phone: Comment on above: 1 Occurrences starting 09/04/2022 until 09/04/2023 Electrocardiographic procedure [facility] End: 03-05-2024 EPIL EEG ROUTINE EPIL EEG ROUTINE NEUROLOGY Routine Altered awareness, transient 1 Occurrences starting 03/05/2023 until 03/05/2024 [facility] Work Phone: Comment on above: 1 Occurrences starting 03/05/2023 until 03/05/2024 Hemoglobin A1c/Hemoglobin.total in Blood [facility] Injection aa&/strd suprascapular nerve INJECT NERV BLCK,SUPRASCAP N. Procedures Routine Adhesive capsulitis of left shoulder Primary osteoarthritis of left shoulder Ordered: 05/10/2022 [facility] Work Phone: Comment on above: Ordered: 05/10/2022 Magnesium [Mass/volu me] in Serum or Plasma [facility] Work Phone: End: 07-05-2024 FLASH SCREENING FLASH SCREENING Radiology Routine Encounter for screening mammogram for malignant neoplasm of breast 1 Occurrences starting 06/06/2023 until 07/05/2024 [facility] Work Phone: Comment on above: 1 Occurrences starting 06/06/2023 until 07/05/2024 End: 01-07-2025 FLASH SCREENING W JAQUELIN FLASH SCREENING W JAQUELIN Radiology Routine Encounter for screening mammogram for malignant neoplasm of breast 1 Occurrences starting 12/09/2023 until 01/07/2025 [facility] Work Phone: Comment on above: 1 Occurrences starting 12/09/2023 until 01/07/2025 MR Lower Extremity Joint [facility] End: 01-06-2024 Mri brain brain stem w/o contrast material MRI BRAIN WO IVCON Radiology Routine Post concussion syndrome Intractable acute post-traumatic headache Dizziness Cervicalgia 1 Occurrences starting 12/07/2022 until 01/06/2024 [facility] Work Phone: Comment on above: 1 Occurrences starting 12/07/2022 until 01/06/2024 End: 01-06-2024 Mri spinal canal cervical w/o contrast matrl MRI CERVICAL SPINE WO IVCON Radiology Routine Post concussion syndrome Intractable acute post-traumatic headache Dizziness Cervicalgia 1 Occurrences starting 12/07/2022 until 01/06/2024 [facility] Work Phone: Comment on above: 1 Occurrences starting 12/07/2022 until 01/06/2024 Patient Education [facility] Work Phone: Patient referral [facility] Work Phone: End: 03-01-2024 US HEAD/NECK SOFT TISSUE OTHER US HEAD/NECK SOFT TISSUE OTHER Radiology Routine Soft tissue mass 1 Occurrences starting 01/31/2023 until 03/01/2024 [facility] Work Phone: Comment on above: 1 Occurrences starting 01/31/2023 until 03/01/2024 US Heart [facility] Work Phone: End: 08-20-2025 XR Chest PA and Lateral XR CHEST 2V FRONTAL/LAT Radiology Routine Cough, unspecified type 1 Occurrences starting 07/21/2024 until 08/20/2025 [facility] Work Phone: Comment on above: 1 Occurrences starting 07/21/2024 until 08/20/2025 End: 01-10-2026 XR Chest PA and Lateral XR CHEST 2V FRONTAL/LAT Radiology STAT Sinobronchitis 1 Occurrences starting 12/11/2024 until 01/10/2026 [facility] Work Phone: Comment on above: 1 Occurrences starting 12/11/2024 until 01/10/2026 End: 05-31-2023 XR RIBS/CHEST 3V AP RIB/OBLS/CXR LEFT XR RIBS/CHEST 3V AP RIB/OBLS/CXR LEFT Radiology Routine Rib pain 1 Occurrences starting 05/01/2022 until 05/31/2023 [facility] Work Phone: Comment on above: 1 Occurrences starting 05/01/2022 until 05/31/[address] [facility] Immunizations Immunization Date Immunization Notes Care Provider [facility] 09-08-2024 influenza, seasonal, injectable, preservative free Dr. Ivette Grimes MD Work Phone: [facility] 09-08-2024 influenza virus vacc ine, unspecified formulation Ivette Grimes MD Work Phone: [facility] 09-23-2023 influenza virus vacc ine, unspecified formulation Ivette Grimes MD Work Phone: [facility] 09-19-2023 influenza, injectabl e, quadrivalent, preservative free Self Referred [facility] 08-06-2022 influenza, injectabl e, quadrivalent, preservative free Dr. Ivette Grimes Work Phone: [facility] 08-06-2022 influenza, seasonal, injectable Ivette Grimes MD Work Phone: [facility] 08-06-2022 influenza virus vacc ine, unspecified formulation Ivette Grimes MD Work Phone: [facility] 10-18-2021 Covid (Moderna) Dr. Ivette Grimes Work Phone: [facility] 08-01-2021 influenza virus vacc ine, unspecified formulation Elle Sanchez MD Work Phone: [facility] 08-01-2021 influenza, injectabl e, quadrivalent, preservative free Dr. Ivetet Grimes Work Phone: [facility] 08-01-2021 influenza, seasonal, injectable Dr. Ivette Grimes Work Phone: [facility] 08-01-2021 influenza, seasonal, injectable, preservative free Ivette Grimes MD Work Phone: [facility] 11-29-2020 COVID-19 vaccine, fu ll dose (MODERNA) Elle Sanchez MD Work Phone: [facility] 11-01-2020 Covid (Moderna) Dr. Ivette Grimes Work Phone: [facility] 10-31-2020 COVID-19 vaccine, fu ll dose (MODERNA) Elle Sanchez MD Work Phone: [facility] 08-02-2020 influenza, injectabl e, quadrivalent, preservative free Dr. Ivette Grimes Work Phone: [facility] 08-02-2020 influenza, seasonal, injectable Dr. Ivette Grimes Work Phone: [facility] 08-02-2020 influenza, seasonal, injectable, preservative free Ivette Grimes MD Work Phone: [facility] 08-01-2020 influenza virus vacc ine, unspecified formulation Elle Sanchez MD Work Phone: [facility] 07-30-2019 influenza, injectabl e, quadrivalent, contains preservative Ivette Grimes MD Work Phone: [facility] 07-30-2019 influenza, injectabl e, quadrivalent, preservative free Dr. Ivette Grimes Work Phone: [facility] 07-30-2019 influenza, seasonal, injectable Dr. Ivette Grimes Work Phone: [facility] 07-28-2019 pneumococcal polysaccharide vaccine, 23 valent Elle Sanchez MD Work Phone: [facility] 08-01-2018 influenza, injectabl e, quadrivalent, preservative free Dr. Ivette Grimes Work Phone: [facility] 08-01-2018 influenza, seasonal, injectable Dr. Ivette Grimes Work Phone: [facility] 08-07-2017 influenza, seasonal, injectable Elle Sanchez MD Work Phone: [facility] 07-31-2017 influenza, injectabl e, quadrivalent, preservative free Dr. Ivette Grimes Work Phone: [facility] 07-31-2017 influenza, seasonal, injectable Dr. Ivette Grimes Work Phone: [facility] 08-02-2016 influenza, injectabl e, quadrivalent, preservative free Dr. Ivette Grimes Work Phone: [facility] 08-02-2016 influenza, seasonal, injectable Dr. Ivette Grimes Work Phone: [facility] 07-09-2016 influenza, injectabl e, quadrivalent, contains preservative Elle Sanchez MD Work Phone: [facility] 03-05-2016 hepatitis B vaccine, pediatric or pediatric/adolescent dosage Elle Sanchez MD Work Phone: [facility] 03-05-2016 hepatitis B vaccine, unspecified formulation Elle Sanchez MD Work Phone: [facility] 07-25-2015 influenza, injectabl e, quadrivalent, contains preservative Ivette Grimes MD Work Phone: [facility] 07-25-2015 influenza, injectabl e, quadrivalent, preservative free Dr. Ivette Grimes Work Phone: [facility] 07-25-2015 influenza, seasonal, injectable Dr. Ivette Grimes Work Phone: [facility] 07-25-2015 varicella virus vaccine Cathy Sanchez MD Work Phone: [facility] 06-06-2015 hepatitis B vaccine, pediatric or pediatric/adolescent dosage Elle Sanchez MD Work Phone: [facility] 05-05-2015 hepatitis B vaccine, pediatric or pediatric/adolescent dosage Elle Sanchez MD Work Phone: [facility] 06-01-2013 tetanus toxoid, redu jamila diphtheria toxoid, and acellular pertussis vaccine, adsorbed Elle Sanchez MD Work Phone: [facility] 02-22-2009 human papilloma viru s vaccine, quadrivalent Elle Sanchez MD Work Phone: [facility] Work Phone: 09-27-2008 human papilloma viru s vaccine, quadrivalent Elle Sanchez MD Work Phone: [facility] Work Phone: 07-20-2008 human papilloma viru s vaccine, quadrivalent Elle Sanchez MD Work Phone: [facility] Work Phone: Payers Date Payer Category Payer Unknown [id number] 2024 Self-pay [id number] [phone] [id number] 2022 Government (not [facility] care or Medicaid) [facility] [id number] 2022 Private Health Insurance [id number]. [id number] 2022 Unknown [id number] 2020 Unknown [id number]. [id number] 2019 Unknown [id number]. 1.13.159.2. [id number] 2015 Unknown [id number] Unknown [id number] Unknown [id number] 2.16840.1.691315.3.579.2. 462 Unknown [id number] 2.16840.1.227363.3.579.2. 462 Unknown [id number] 2.840.1.271469.3.579.2. 462 Unknown [id number] 2.16840.1.860238.3.579.2. 462 Unknown [id number] 2.16840.1.816607.3.579.2. 462 Unknown [id number] 2.16840.1.612266.3.579.2. 462 Unknown [id number] 2.16840.1.565305.3.579.2. 462 Unknown [id number] 2.16840.1.311600.3.579.2. 462 Unknown [id number] 2.16.840.1.117692.3.579.2. 462 Unknown [id number] 2.16.840.1.616885.3.579.2. 462 Unknown [id number] 2.16.840.1.298870.3.579.2. 462 Unknown [id number] 2.16.840.1.450652.3.579.2. 462 Unknown [id number] 2.840.1.856828.3.579.2. 462 Unknown [id number] 2.840.1.329673.3.579.2. 462 Unknown [id number] 2.840.1.722965.3.579.2. 462 Unknown [id number] 2.840.1.594934.3.579.2. 462 Unknown [id number] 2.840.1.609931.3.579.2. 462 Unknown [id number] 2.840.1.014553.3.579.2. 462 Unknown [id number] 2.840.1.663723.3.579.2. 462 Unknown [id number] 2.840.1.843635.3.579.2. 462 Unknown [id number] 2.840.1.576330.3.579.2. 462 Unknown [id number] 2.840.1.424484.3.579.2. 462 Unknown [id number] 2.840.1.932354.3.579.2. 462 Unknown [id number] 2.840.1.642947.3.579.2. 462 Unknown [id number] 2.840.1.037617.3.579.2. 462 Unknown [id number] 2.840.1.818748.3.579.2. 462 Unknown [id number] 2.840.1.955519.3.579.2. 462 Unknown [id number] 2.840.1.082378.3.579.2. 462 Unknown [id number] 2.840.1.810595.3.579.2. 462 Unknown [id number] 2.840.1.044928.3.579.2. 462 Unknown [id number] 2.840.1.230101.3.579.2. 462 Unknown [id number] 2.840.1.548758.3.579.2. 462 Social History Date Type Detail Facility Start: 03-14-2011 End: 06-10-2025 Tobacco smoking status NHIS Never smoked tobacco [facility] Start: 01-25-2022 End: 06-07-2025 Alcohol intake Current non-drinker of alcohol (finding) [facility] Start: 09-13-2020 End: 11-01-2022 History SDOH Alcohol Frequency 1 [facility] Start: 03-09-2020 History SDOH Social Connections Phone 5 [facility] Start: 03-09-2020 End: 11-01-2022 History SDOH Social Connections Get Together 2 [facility] Start: 03-09-2020 End: 11-01-2022 History SDOH Social Connections [facility] Start: 03-09-2020 End: 11-01-2022 History SDOH Social Connections Living 7 [facility] Start: 09-13-2020 End: 11-01-2022 History SDOH Financial 4 [facility] Start: 08-15-[address] [facility] Start: 1980 Sex Assigned At Female [facility] Start: 01-19-2022 End: 01-22-2023 Exposure to SARS-CoV-2 (event) Not sure [facility] Start: 02-06-2022 End: 02-04-2024 Tobacco smoking status NHIS Unknown if ever smoked [facility] Start: 05-15-2020 [facility]: 05-15-2020 [facility] Start: 05-05-2020 [facility] Start: 03-14-2011 End: 07-19-2022 Tobacco use and exposure Smokeless tobacco non-user [facility] Work Phone: Start: 11-01-2022 History SDOH Alcohol Std Drinks 0 [facility] Start: 11-01-2022 End: 05-17-2023 History of [address] function [facility] Start: 11-01-2022 End: 05-17-2023 Social connection and isolation panel [facility] Do you belong to any clubs or organizations such as [employer] groups, [employer], [employer] or [employer]ings[employer] groups, or school groups? No [facility] Are you now , , , , never or living with a partner? Never [facility] How often to you hav e a drink containing alcohol? Never [facility] Start: 10-05-2012 How many standard drinks containing alcohol do you have on a typical day? Patient does not drink [facility] How hard is it for y ou to pay for the very basics like food, housing, medical care, and heating Not very hard [facility] Do you feel stress - tense, restless, nervous, or anxious, or unable to sleep at night because your mind is troubled all the time - these days [OSQ] Only a little [facility] (I/We) worried wheth er (my/our) food would run out before (I/we) got money to buy more. Never true [facility] Start: 05-27-2020 Gender identity Identifies as female gender (finding) [facility] Start: 05-27-2020 Sexual orientation Heterosexual (fin ding) [facility] Do you belong to any clubs or organizations such as [employer] groups, [employer], [employer] or [employer]ings[employer] groups, or school groups? Yes [facility] Start: 02-02-2025 Sex Female (finding) [facility] NEGATED: Highlighted row [facility] Medical Equipment Procedure Code Equipment Code Equipment Origin al Text Equipment Identifier Dates [id number], [id number] Start: 07-22-2018 Comment on above: Test blood [...] [AUDIT-C] 0 12/11/19 10:02 AM EST User, Katehart [facility] 12-11-2024 Within the last year , have you been humiliated or emotionally abused in other ways by your partner or ex-partner? No 12/11/2024 10:02 AM EST User, Mychart No [facility] 12-11-2024 Within the last year , have you been afraid of your partner or ex-partner? No 12/11/2024 10:02 AM EST User, Katehart No [facility] 12-11-2024 Within the last year , have you been raped or forced to have any kind of sexual activity by your partner or ex-partner? No 12/11/2024 10:02 AM EST User, Mychart No [facility] 12-11-2024 Within the last year , have you been kicked, hit, slapped, or otherwise physically hurt by your partner or ex-partner? No 12/11/2024 10:02 AM EST User, Mychart No [facility] 12-11-2024 How often to you hav e a drink containing alcohol? Never 12/11/2024 10:02 AM EST User, Mychart Never [facility] 12-11-2024 Functional status Patient does n ot drink 12/11/2024 10:02 AM EST User, Mychart Patient does not drink [facility] 12-11-2024 How often do you hav e 6 or more drinks on 1 occasion? Never 12/11/2024 10:02 AM EST User, Mychart Never [facility] 08-07-2023 Functional status [facility] Work Phone: 10-22-2014 Are you deaf, or do you have serious difficulty hearing No 10/22/2014 10:49 AM AKILA Goss MaRickAshanti No [facility] 10-22-2014 Are you blind, or do you have serious difficulty seeing, even when wearing glasses No 10/22/2014 10:49 AM Ashanti Mejia Ma [facility] 10-22-2014 Do you have serious difficulty walking or climbing stairs No 10/22/2014 10:49 AM Ashanti Mejia Ma [facility] 10-22-2014 Do you have difficul ty dressing or bathing No 10/22/2014 10:49 AM Ashanti Mejia Ma [facility] 10-22-2014 Because of a physica l, mental, or emotional condition, do you have difficulty doing errands alone such as visiting a physician's office or shopping No 10/22/2014 10:49 AM AKILA Goss Ma Ashanti Mora [facility] Mental Status Date Assessment Result Facility 06-23-2025 Cognitive function Voice/Name [facility] Work Phone: 11-11-2024 Cognitive function Voice/Name [facility] Work Phone: 02-04-2024 Cognitive function Level Of Cons ciousness Awake;Alert;Appropriate [facility] Work Phone: 08-07-2023 Cognitive function Voice/Name [facility] Work Phone: 08-05-2023 Cognitive function Level Of Cons ciousness Awake;Alert;Appropriate;Fol lows Commands [facility] Work Phone: 05-20-2023 Cognitive function Level Of Cons ciousness Awake;Alert;Appropriate [facility] Work Phone: 12-03-2022 Cognitive function Level Of Cons ciousness Awake;Alert;Appropriate;Fol lows Commands [facility] Work Phone: 11-27-2022 Cognitive function Level Of Cons ciousness Awake;Alert;Appropriate [facility] Work Phone: 10-22-2014 Because of a physica l, mental, or emotional condition, do you have serious difficulty concentrating, remembering, or making decisions No 10/22/2014 10:49 AM EST Masters Ashanti Ramirez [facility] Clinical Notes 12-06-2012 to 06-25-2025 Note Date & Type Note Facility 06-25-2025 Progress note [facility] 06-25-2025 Progress note Note Date/Time June 25, 2025 9:35am [facility] [address] [place] [address] [address] [place] [address] OFFICE VISIT Date of Service: 06/25/25 MR#: [id number] Acct: [id number] Name: TORI GRAY Rep #: [id number] : 1980 Provider: Dr. Killian Quiroga MD Age/Sex: 45/F Location: [facility] Status: Signed Intake Vital Signs 05/06/25 10:04 [...] 2 puff inhalation Q 4H PRN 08/10/22 06/25/25 History aerosol inhaler shortness of breath [...] Cosigner Signature: Date (if applicable) CC: ~ [facility] Work Phone: 1(876) 306-234708-20-2025 Discharge summary Author Brett Quiroga [facility] Note Date/Time June 23, 2025 8: 39am [facility] Medical Records Department [address] [place] [address] Instructions for Home/Discharge Instructions 06/23/25 0836 MR#: [id number] Acct: [id number] Name: TORI GRAY Rep #:[id number] : 1980 45 From: Brett Quiroga MD [...] Brett Quiroga Primary Care Provider: Ivette Grimes Patient Instructions: After Shoulder Arthroscopy Print Language: Tanzanian Discharge Orders/Prescriptions Prescriptions: New oxycodone-acetaminophen [Endocet] 5-325 [...] CC: Dr. Ivette Grimes MD ~ Signed [facility] Work Phone: 1(672) 983-422508-20-[address] [facility] Medical Records Department [address] [place] [address] Pre-Anesthesia Evaluation 06/23/25 0739 MR#: [id number] Acct: [id number] Name: TORI GRAY Rep #:[id number] : 1980 45 From: Ankur ROJO PCP: Dr. 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 Hx Hospitalization No 06/10/25 09:08 Any Problems [...] take am of surgery PONV 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: 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 Female Yes 06/10/25 09:08 HX of Motion [...] 06/23/25 06:40 Respiratory Assessment Respiratory Assessment - broadcast 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: Respiratory Tract Infection Hx - broadcast 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 Hx Respiratory Tract Infection No 06/10/25 09:08 STOP Sleep Apnea STOP Sleep Apnea - broadcast 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: STOP Sleep Apnea - broadcast 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 Hx Hypertension No: LISINOPRIL FOR LIVER 06/10/25 [...] Tobacco Use History Tobacco Use History - broadcast 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: Tobacco Use History - broadcast 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 Tobacco Use Non-smoker 03/09/25 09:20 Smoking Status Never smoker 06/10/25 09:08 Hx Tobacco Use No 06/10/25 09:08 Years Smoking Packs Smoked per Day Smoking Cessation Date was within the last 15 years Hx Smoking Cessation Date Hx Smoking Cessation Counseling Hematologic Medial History Hematologic Hx - broadcast 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: 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 06/23/25738 FUEL ISLAND ATTENDANT> Date _ Ankur Templeton FUEL ISLAND ATTENDANT Cosigner Signature: Date CC: ~ Signed [facility]08-20-2025 Consult note Author Ankur Templeton [facility] Note Date/Time June 23, 2025 10 :38am [facility] Medical Records Department [address] [place] [address] Pre-Anesthesia Evaluation 06/23/2539 MR#: [id number] Acct: [id number] Name: TORI GRAY Rep #:[id number] : 1980 45 From: Ankur ROJO PCP: Dr. 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 - broadcast 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 Hx Hospitalization No 06/10/25 09:08 Any Problems [...] take am of surgery PONV 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: 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 Female Yes 06/10/25 09:08 HX of Motion [...] 06/23/25 06:40 Respiratory Assessment Respiratory Assessment - broadcast 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: Respiratory Tract Infection Hx - broadcast 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 Hx Respiratory Tract Infection No 06/10/25 09:08 STOP Sleep Apnea STOP Sleep Apnea - broadcast 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: STOP Sleep Apnea - broadcast 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 Hx Hypertension No: LISINOPRIL FOR LIVER 06/10/25 [...] Tobacco Use History Tobacco Use History - broadcast 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: Tobacco Use History - broadcast 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 Tobacco Use Non-smoker 03/09/25 09:20 Smoking Status Never smoker 06/10/25 09:08 Hx Tobacco Use No 06/10/25 09:08 Years Smoking Packs Smoked per Day Smoking Cessation Date was within the last 15 years Hx Smoking Cessation Date Hx Smoking Cessation Counseling Hematologic Medial History Hematologic Hx - broadcast 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: 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 06/23/25 0739 <Electronically signed by Ankur Templeton CRNA> Date _ Ankur Templeton CRNA Cosigner Signature: Date CC: ~ Signed [facility] Work Phone: 1(934) 905-601808-20-2025 History and physical note Author [facility] Note Date/Time June 23, 2025 7: 14am [facility] Medical Records Department [address] [place] [address] History & Physical Exam 06/23/2512 MR#: [id number] Acct: [id number] Name: TORI GRAY Rep #:[id number] : 1980 45 From: Brett Quiroga MD PCP: Dr. Ivette Grimes MD Status:REG S DC Location: [place] [address]- HPI - General HPI Narrative TORI GRAY, is a 45 F who presents for left shoulder arthroscopy, subacromial decompression, debridement. no change to h and p. ok to proceed. rab, post op instructions, narcotic counselling. possible licodaine allergy, butafter discussion with anesthesia, the patient and the anesthesia provider have decided to proceed with a block. left shoulder marked. ok to proceed. MR#: [id number] Acct: [id number] Name: TORI GRAY Rep #: [id number] : 1980 Provider: Dr. Brett Quiroga MD Age/Sex: 44/F Location: [facility] Status: Signed Intake Vital Signs 03/22/2509:08 05/06/2510:04 [...] by me, Dr. Brett Quiroga MD 05/06/25 0921. Part of today?s visit was documented by [ ], acting as scribe. TORI GRAY is a 44 year old F here today for follow-up left shoulder MRI. [facility] getting worse. cant do injections. seems to be getting worse, with ADLs as well. worse with lifting. lat and anterior pain. 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 Supplemental Info [facility] Imaging Services [address] [place] [address] Upper Ext Joint Only(Routine) MR#: [id number] Acct: [id number] Name: TORI GRAY Rep #: [id number] : 1980 F 44 From: Salazar Tyson MD PCP: Dr. Ivette Grimes MD Status: REG CLI Study: Upper Ext Joint Only(Routine) Date of Exam: 04/17/25 Exam# [id number] Ordering Dr: Brett Quiroga MD PROCEDURE: UPPER [...] subacromial subdeltoid bursa, with bursitis. Reading [facility] independently reviewed the imaging. Concur with [...] blood flow before exercises. 4. Anti-Inflammatory Medications: Zxeh-jme-awqzvvv medications like ibuprofen or naproxen can help [...] strength FE 4+, ER 5/5. [facility] Medical History Diabetes Fatty liver Gastric reflux [...] Quiroga MD; Dr. Ivette Grimes MD~ Signed [facility] Work Phone: 1(534) 556-573008-20-[address] [facility] Medical Records Department [address] [place] [address] Anesthesia Postop Eval I 06/23/25 0857 MR#: [id number] Acct: [id number] Name: TORI GRAY Rep #:[id number] : 1980 45 From: Ankur ROJO PCP: Dr. Ivette Grimes MD Status:REG S DC Y Race: C Location: [place] [address]- Anesthesia: Postop Eval I Current Vital Signs Temperature: 97.8 F Pulse Rate: 74 Blood Pressure: 114/70 Respiratory Rate: 16 Pulse Ox: 94 Assessment Airway patent: Yes Spontaneous unlabored respirations: Yes nausea: No Vomiting: No Anesthesia Complication: No Fluid Hydration Crystalloid volume administer (ml): 800 Total IV fluid infused: 800 Progress Note Anesthesia document: Postop Eval 1 completed: Yes 06/23/25 0858 FUEL ISLAND ATTENDANT> Date _ Ankur Haddadt FUEL ISLAND ATTENDANT Cosigner Signature: Date CC: ~ Signed [facility]08-20-2025 Discharge summary [facility] Medical Records Department [address] [place] [address] Instructions for Home/Discharge Instructions 06/23/25 0836 MR#: [id number] Acct: [id number] Name: TORI GRAY Rep #:[id number] : 1980 45 From: Brett Quiroga MD [...] Patient Instructions: After Shoulder Arthroscopy Print Language: Tanzanian Discharge Orders/Prescriptions Prescriptions: New oxycodone-acetaminophen [Endocet] 5-325 [...] CC: Dr. Ivette Grimes MD ~ Signed [facility]08-20-2025 Procedure note [facility] Medical Records Department [address] [place] [address] Operative Report 06/23/25830 MR#: [id number] Acct: [id number] Name: TORI GRAY Rep #:[id number] : 1980 45 From: Brett Quiroga MD PCP: Dr. Ivette Grimes MD Status:REG S GA Location: [place] [address]-1 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 model making supervisor: Yes Chemistry Research Assistant: jamila Tasks completed by phlebotomy lab assistant: Retracting Additional licensed physical therapist assistant?: No Type of Anesthesia: Block,Regional and [...] home according to day surgery criteria. CPT 72575, 23011 Surgical Findings: As above Complications Complications: No Admit VTE Documentation VTE Present on Admission: No VTE Mechan Device Prophylaxis: SCD's VTE Pharm Prophylaxis ordered?: No Reason prophylaxis not ordered: Treatment Not Indicated 06/23/25 0836 Cosigner Signature (if applicable): CC: Dr. Brett Quiroga MD; Dr. Ivette Grimes MD~ Signed [facility]08-20-2025 History and physical note [facility] Medical Records Department [address] [place] [address] History & Physical Exam 06/23/25 0712 MR#: [id number] Acct: [id number] Name: TORI GRAY Rep #:[id number] : 1980 45 From: Brett Quiroga MD PCP: Dr. Ivette Grimes MD Status:REG S DC Location: [place] [address] HPI - General HPI Narrative TORI GRAY, is a 45 F who presents for left shoulder arthroscopy, subacromial decompression, debridement. no change to h and p. ok to proceed. rab, post op instructions, narcotic counselling. possible licodaine allergy, butafter discussion with anesthesia, the patient and the anesthesia provider have decided to proceed with a block. left shoulder marked. ok to proceed. MR#: [id number] Acct: [id number] Name: TORI GRAY Rep #: [id number] : 1980 Provider: Dr. Brett Quiroga MD Age/Sex: 44/F Location: [facility] Status: Signed Intake Vital Signs 03/22/2509:08 05/06/2510:04 [...] made by me, Dr. Kassie MD 05/06/25 0973. Part of today?s visit was documented by [ ], acting as scribe. TOIR GRAY is a 44 year old F here today for follow-up left shoulder MRI. [facility] getting worse. cant do injections. seems to be getting worse, with ADLs as well. worse with lifting. lat and anterior pain. 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 Supplemental Info [facility] Imaging Services [address] [place], [place] [address] Upper Ext Joint Only(Routine) MR#: [id number] Acct: [id number] Name: TORI GRAY Rep #: [id number] : 1980 F 44 From: Salazar Tyson MD PCP: Dr. Ivette Grimes MD Status: REG CLI Study: Upper Ext Joint Only(Routine) Date of Exam: 04/17/25 Exam# [id number] Ordering Dr: Brett Quiroga MD PROCEDURE: UPPER [...] subdeltoid bursa, with bursitis. Reading Location: [place] I independently reviewed the imaging. Concur with [...] blood flow before exercises. 4. Anti-Inflammatory Medications: Dnph-xrs-bkoxhra medications like ibuprofen or naproxen can help [...] radial pulse. strength FE 4+, ER 5/5. PFSH Medical History Diabetes Fatty liver Gastric [...] Quiroga MD; Dr. Ivette Grimes MD~ Signed [facility]08-20-2025 [facility] Medical Records Department [address] [place] [address] History Physical Exam 06/23/25 0712 MR#: [id number] Acct: [id number] Name: TORI GRAY Rep #: [id number] : 1980 45 From: Brett Quiroga MD PCP: Dr. Ivette Grimes MD Status:[facility] Location: [place] [address]- HPI - General HPI Narrative TORI GRAY, is a 45 F who presents for left shoulder arthroscopy, subacromial decompression, debridement. no change to h and p. ok to proceed. rab, post op instructions, narcotic counselling. possible licodaine allergy, but after discussion with anesthesia, the patient and the anesthesia provider have decided to proceed with a block. left shoulder marked. ok to proceed. MR#: [id number] Acct: [id number] Name: TOIR GRAY Rep #: [id number] : 1980 Provider: Dr. Brett Quiroga MD Age/Sex: 44/F Location: [facility] Status: Signed Intake Vital Signs 03/22/2509:08 05/06/2510:04 [...] PRN migraine 02/04/24 05/06/25 Hist ory tablet ([facility] ODT) headache semaglutide 0.25 mg or 0.5 mg (2 0.5 mg subcut QWEEK 10/16/24 05/06/25 History mg/3 mL) subcutaneous pen injector (Ozempic) [...] 2005) Family History (Rev (more content not included)...[facility] 06-17-2025 Progress [facility] [address] [place] [address] OFFICE VISIT Date of Service: 06/17/25 MR#: [id number] Acct: [id number] Name: TORI GRAY Rep #: [id number] : 1980 Provider: CONCEPCIÓN Rehman Age/Sex: 45/F Location[place] [facility] Status: Signed Intake Vital Signs 05/06/25 10:04 [...] mL) subcutaneous pen injector (Ozempic) [facility] Medical History Diabetes Fatty liver Gastric reflux [...] CPT Codes Procedures - Manipulation: 3-4 regions (13713) Procedures - Traction, Mechanical: Yes (36624) 06/17/25 1005 .C.> Date _ Bibiana Rehman D.C. Cosigner Signature: Date (if applicable) CC: ~ [facility]08-14-2025 Progress note Author Bibiana Rehman [facility] Note Date/Time June 17, 2025 10 :05am [facility] [address] [place] [address] OFFICE VISIT Date of Service: 06/17/25 MR#: [id number] Acct: [id number] Name: TORI GRAY Rep #: [id number] : 1980 Provider: CONCEPCIÓN Rehman Age/Sex: 45/F Location: [facility] Status: Signed Intake Vital Signs 05/06/25 10:04 [...] mL) subcutaneous pen injector (Ozempic) [facility] Medical History Diabetes Fatty liver Gastric reflux [...] CPT Codes Procedures - Manipulation: 3-4 regions (38834) Procedures - Traction, Mechanical: Yes (41087) 06/17/25 1005 <Electronically signed by Bibiana Aguilar> Date _ Bibiana Rehman D.C. Cosigner Signature: Date (if applicable) CC: ~ [facility] Work Phone: 1([phone]) 624-583808-07-2025 Telephone encounter Note* Telephone Encounter - Juliana Murphy MA - 06/10/2025 2:17 PM EDT LDL Direct scanned to chart [facility]08-07-2025 Miscellaneous Notes* Telephone Encounter - Juliana Murphy MA - 06/10/2025 2:17 PM EDT LDL Direct scanned to chart * Telephone Encounter - Nirmala Storey LPN - 06/09/2025 12:53 PM EDT Vidmaker message sent to the patient. * Telephone Encounter - Ivette Grimes MD - 06/09/2025 10:48 AM EDT Lets increase the ozempic to 2 mg a day. Call sugars in two weeks. Watch the diet. * Telephone Encounter - Nirmala Storey LPN - 06/09/2025 10:20 AM EDT HgbA1C from [facility] 7.4 documented in this encounterSt. [facility]08-[facility]25 Hospital Discharge instructionsAmbulatory Orders* 12 Lead EKG [[facility]] Time Frame: 06/10/25, Location: None Selected [facility] Work Phone: 1(264) 339-327108-06-2025 Telephone encounter Note* Telephone Encounter - Nirmala Storey LPN - 06/09/2025 12:53 PM EDT Vidmaker message sent to the patient. [facility]08-06-2025 Telephone encounter Note* Telephone Encounter - Ivette Grimes MD - 06/09/2025 10:48 AM EDT Lets increase the ozempic to 2 mg a day. Call sugars in two weeks. Watch the diet. [facility]08-06-2025 Telephone encounter Note* Telephone Encounter - Nirmala Storey LPN - 06/09/2025 10:20 AM EDT HgbA1C from [facility] 7.4 [facility]08-04-2025 NoteHNO ID: [id number] Author: IVETTE GRIMES MD Service: ? Author [...] June [address] Quiroga at [facility]. - Follow-up appointment with Dr. Camacho [...] 1 tablet by mouth once daily. Ipratropium [place] (ATROVENT) 21 mcg (0.03 %) nasal spray [...] 1 Each by INTRAUTERINE route as directed. Dfvrnpjo-Mo-Dsr-Fe-FA tab Take 1 tablet by mouth once [...] Age of Onset Alcohol/Drug Mother Heart Father CO Cancer Father PANCREATIC CANCER Diabetes Father Coronary Artery Disease Father Anxiety disorder Sister Depression Sister Depression Brother Cancer Maternal Grandmother LUNG CANCER Diabetes Maternal Grandfather Heart Paternal Grandmother TRIPLE BYPASS SURGERY S (more content not included)...[facility]08-04-2025 History of Present illness Narrative* [...] June [address] Quiroga at [facility]. - Follow-up appointment with Dr. Camacho [...] 1 tablet by mouth once daily. Ipratropium [place] (ATROVENT) 21 mcg (0.03 %) nasal spray [...] 1 Each by INTRAUTERINE route as directed. Cycnaqbw-Oc-Mar-Fe-FA tab Take 1 tablet by mouth once [...] Anxiety 06/07/2014 Chronic back pain Kidney stones LEITTIA treated with BiPAP Type 2 diabetes mellitus (HCC) PAST SURGICAL HISTORY Procedure Laterality Date DELIVERY ONLY 2005 , low cervical INSERT INTRAUTERINE DEVICE 10/19/08 mirena LAPAROSCOPY SURG CHOLECYSTECTOMY 2006 Cholecystectomy, lap (Rowena Monet) PAST SURGICAL HISTORY OF 2019 stent into kidney REMOVE IUD 07/13/2010 FAMILY HISTORY Problem Relation Age of Onset Alcohol/Drug Mother Heart Father CO Cancer Father PANCREATIC CANCER Diabetes Father Coronary [...] for screening mammogram to be sent to [facility]. (See patient after visit summary for additional instructions to patient) Ivette Grimes MD Recording using [employer] software for draft documentation of the visit was discussed with the patient/authorized open claims representative; all questions welcomed and answered. Patient/authorized open claims representative agreed to proceed documented in this encounterSt. [facility]08-04-2025 Instructions* Patient Instructions* Ivette Grimes MD - [...] with Dr. Quiroga on June 23 at [facility]. - Keep your neurology appointment on [...] any new concerns arise. documented in this encounterSt. [facility]06-04-2025 Telephone encounter Note * Telephone Encounter - Ivette Grimes MD - 04/07/2025 3:34 PM EDT Requests refill. [facility]06-04-2025 Miscellaneous Notes* Telephone Encounter - Ivette Grimes MD - 04/07/2025 3:34 PM EDT Requests refill. documented in this encounterSt. [facility] Hospital05-29-2025 Telephone encounter Note * Telephone Encounter - Nakia Caraballo RN - 04/01/2025 12:45 PM EDT Botox approved until 11/03/25. Patient and scheduling made aware. She is a patient of Fatuma's butdue to her being out on maternity leave, patient will need scheduled with another FÉLIX. Saw Amanda on03/09/25. Latonia Caraballo RN, BSN [facility] Work Phone: [phone] Miscellaneous Notes* Telephone Encounter - Nakia Caraballo RN - 04/01/2025 12:45 PM EDT Botox approved until 11/03/25. Patient and scheduling made aware. She is a patient of Fatuma's butdue to her being out on maternity leave, patient will need scheduled with another FÉLIX. Saw Amanda on03/09/25. Latonia Caraballo RN, BSN documented in this encounterSt. [facility] Hospital05-16-2025 Telephone encounter Note * Telephone Encounter - Nakia Caraballo RN - 03/19/2025 3:14 PM EDT Botox referral sent to pharmacy as patient would like to restart botox. Last botox 09/03/24. Latonia Caraballo RN, BSN [facility] Work Phone: [phone] Miscellaneous Notes* Telephone Encounter - Nakia Caraballo RN - 03/19/2025 3:14 PM EDT Botox referral sent to pharmacy as patient would like to restart botox. Last botox 09/03/24. Latonia Caraballo RN, BSN documented in this encounterSt. [facility] Hospital05-09-2025 Radiology Diagnostic study note [facility] Imaging Services [address] [place] [id number] Shoulder min 2 Views MR#: [id number] Acct: [id number] Name: TORI GRAY Rep #: [id number] : 1980 F 44 From: Kaushik Newsome MD PCP: Dr. Ivette Grimes MD Status: GERMAIN CURTIS Study:Shoulder min 2 Views Date of Exam: 03/11/25 Exam# [id number] Ordering Dr: Brett Quiroga MD PROCEDURE: SHOULDER [...] Quiroga MD; Dr. Ivette Grimes MD ~ Senior Wealth Advisor: Signed [facility]05-06-2025 Evaluation note* Diagnosis Onset Date Resolution Status Admit Date Segmental and somatic dysfunction of cervical region acute [facility] 2024 9:17am Segmental and somatic dysfunction of lumbar region acute March 09, 2025 9:17am Segmental and somatic dysfunction of pelvic region acute March 09, 2025 9:17am Segmental and somatic dysfunction of thoracic region acute [facility] 2024 9:17am Disc displacement, lumbar chronic March 09, 2025 9:17am Left shoulder pain inactive March 222024 8:58am Back pain acute March 22, 2025 9:33am Segmental and somatic dysfunction of cervical region acute [facility] 2024 9:33am Segmental and somatic dysfunction of lumbar region acute March 22, 2025 9:33am Segmental and somatic dysfunction of pelvic region acute March 22, 2025 9:33am Segmental and somatic dysfunction of thoracic region acute [facility] 2024 9:33am Segmental and somatic dysfunction [...] displacement, lumbar chronic June 17, 2025 9:27am [facility] [employer] Work Phone: [phone]) 421-808805-06-2025 Evaluation note* Diagnosis Onset Date Resolution Status Admit Date Segmental and somatic dysfunction of cervical region acute 2024 9:17am Segmental and somatic dysfunction of [...] and somatic dysfunction of cervical region acute [facility] 2024 9:33am Segmental and somatic dysfunction of lumbar region acute March 22, 2025 9:33am Segmental and somatic dysfunction of pelvic region acute March 22, 2025 9:33am Segmental and somatic dysfunction of thoracic region acute ay 2024 9:33am Segmental and somatic dysfunction [...] dysfunction of pelvic region acute Noah 2024 9:49am Segmental and somatic dysfunction of [...] somatic dysfunction of pelvic region acute Jun us2024 9:27am Segmental and somatic dysfunction of thoracic region acute A ugust 2024 9:27am Disc displacement, lumbar chronic June 17, 2025 9:27am Impingement of left shoulder acute June 23, 2025 6:20am [facility] Work Phone: [phone]) 174-796805-06-2025 Evaluation note* Diagnosis Onset Date Resolution Status Admit Date Segmental and somatic dysfunction of cervical region acute [facility] 2024 9:17am Segmental and somatic dysfunction of lumbar region acute March 09, 2025 9:17am Segmental and somatic dysfunction of pelvic region acute March 09, 2025 9:17am Segmental and somatic dysfunction of thoracic region acute [facility] 2024 9:17am Disc displacement, lumbar chronic March 09, 2025 9:17am Left shoulder pain inactive March 222024 8:58am Back pain acute March 22, 2025 9:33am Segmental and somatic dysfunction of cervical region acute [facility] 2024 9:33am Segmental and somatic dysfunction of lumbar region acute March 22, 2025 9:33am Segmental and somatic dysfunction of pelvic region acute March 22, 2025 9:33am Segmental and somatic dysfunction of thoracic region acute [facility] 2024 9:33am Segmental and somatic dysfunction [...] left shoulder acute June 25, 2025 9:12am [facility] Work Phone: [phone]) [phone] History of Present illness Narrative* Amanda Arteaga PA-C - 03/09/2025 7:25 AM EDT Images from the original note were not included. [facility] New Patient Evaluation This [...] visit. Either the patient or their legal open claims representative has been informed of the risks and benefits of -- and alternatives to -- treatment through a remote evaluation andconsents to proceed with the evaluation remotely. Confirmed verbally that the patient [facility].Yes Confirmed verbally that the patient consents to being seen virtually today.Yes Confirmed verbally that the patient consents to being seen by a physician licensed physical therapist assistant.Yes CHIEF COMPLAINT: Botox for migraines Tori [...] 1 tablet by mouth once daily. Ipratropium [place] (ATROVENT) 21 mcg (0.03 %) nasal spray [...] 1 Each by INTRAUTERINE route as directed. [place]-3 Fatty Acids (FISH OIL) 500 mg cap Take 1 capsule by mouth once daily. blood sugar diagnostic (BLOOD GLUCOSE TEST) test strip Test blood sugar(s) 1 times daily. Dx: Type 2 DM - Controlled E11.9 Insulin: Yes Lancets lancets Test blood sugar(s) 1 times daily. Dx: Type 2 DM - Controlled E11.9 Insulin: No Nsgcyomn-Au-Xeo-Fe-FA tab Take 1 tablet by mouth once [...] which included preparing to see the patient, eewq-qp-[id number] patient care, completing clinical documentation, obtaining and/or [...] (Sleep study not recommended) documented in this encounterSt. [facility] Hospital05-06-2025 NoteHNO ID: [id number] Author: AMANDA ARTEAGA PA-C Service: ? Author Type: Physician Insurance Writer Type: Progress Notes Filed: 03/10/2025 07:59 Note Text: [facility] New Patient Evaluation This [...] visit. Either the patient or their legal open claims representative has been informed of the risks and benefits of -- and alternatives to -- treatment through a remote evaluation and consents to proceed with the evaluation remotely. Confirmed verbally that the patient currently located in the state of [place].Yes Confirmed verbally that the patient consents to being seen virtually today.Yes Confirmed verbally that the patient consents to being seen by a physician licensed physical therapist assistant.Yes CHIEF COMPLAINT: Botox for migraines Tori [...] time -Irma 15 a (more content not included)...[facility]05-01-2025 Telephone encounter Note* Telephone Encounter - Beata Pitts LPN - 03/04/2025 2:41 PM EDT Tried contacting patient to confirm that she just wants to discuss botox rather than get injectionsfor her upcoming appt as it's a virtual visit, per [place]. Beata Pitts LPN March 04, 2025 2:[address] [facility]05-01-2025 Miscellaneous Notes* Telephone Encounter - Beata Pitts LPN - 03/04/2025 2:41 PM EDT Tried contacting patient to confirm that she just wants to discuss botox rather than get injectionsfor her upcoming appt as it's a virtual visit, per [place]. Beata Pitts LPN March 04, 2025 2:42 PM documented in this encounterSt. [facility]04-29-[facility] History of Present illness Narrative* Ivette Grimes [...] visit. Either the patient or their legal open claims representative has been informed of the risks [...] like me to send over referral at [facility]. They specialize in shoulders. Seen at optometry at [facility] for dilated vision check on February 04. [...] 1 tablet by mouth once daily. Ipratropium [place] (ATROVENT) 21 mcg (0.03 %) nasal spray [...] 1 Each by INTRAUTERINE route as directed. [place]-3 Fatty Acids (FISH OIL) 500 mg cap Take 1 capsule by mouth once daily. blood sugar diagnostic (BLOOD GLUCOSE TEST) test strip Test blood sugar(s) 1 times daily. Dx: Type 2 DM - Controlled E11.9 Insulin: Yes Lancets lancets Test blood sugar(s) 1 times daily. Dx: Type 2 DM - Controlled E11.9 Insulin: No Urxmkeox-Yu-Nvi-Fe-FA tab Take 1 tablet by mouth once [...] Age of Onset Alcohol/Drug Mother Heart Father CO Cancer Father PANCREATIC CANCER Diabetes Father Coronary [...] ORTHOPAEDICS Ivette Grimes MD documented in this encounterSt. Francis Hospital04-29-2025 NoteHNO ID: [id number] Author: IVETTE GRIMES MD Service: ? Author [...] visit. Either the patient or their legal open claims representative has been informed of the risks [...] like me to send over referral at [facility]. They specialize in shoulders. Seen at optometry at [facility] for dilated vision check on February 04. [...] 1 tablet by mouth once daily. Ipratropium [place] (ATROVENT) 21 mcg (0.03 %) nasal spray [...] 1 Each by INTRAUTERINE route as directed. [place]-3 Fatty Acids (FISH OIL) 500 mg cap Take 1 capsule by mouth once daily. blood sugar diagnostic (BLOOD GLUCOSE TEST) test strip Test blood sugar(s) 1 times daily. Dx: Type 2 DM - Controlled E11.9 Insulin: Yes Lancets lancets Test blood sugar(s) 1 times daily. Dx: Type 2 DM - Controlled E11.9 Insulin: No Uqzzvixt-Bn-Tem-Fe-FA tab Take 1 tablet by mouth once [...] Age of Onset Alcohol/Drug Mother Heart Father CO Cancer Father PANCREATIC CANCER Diabetes Father Coronary Artery Disease Father Anxiety disorder Sister Depression Sister Depression Brother Cancer Maternal Grandmother LUNG CANCER Diabetes Maternal Grandfather Heart Paternal Grandmother TRIPLE BYPASS SURGERY Social History Tobacco Use Smoking status: Never Smokeless tobacco: Never Vaping Use Vaping status: Never Used Substance Use Topics Alcohol use (more content not included)...[facility]04-03-2025 Evaluation note* Diagnosis Onset Date [...] displacement, lumbar chronic March 09, 2025 9:17am [facility] Work Phone: 1(125) 357-591304-03-2025 Evaluation note* Diagnosis Onset Date Resolution Status [...] Left shoulder pain inactive March 222024 8:58am [place] [employer] Work Phone: 1(238) 924-218804-03-2025 Evaluation note* Diagnosis Onset Date Resolution Status [...] and somatic dysfunction of cervical region acute [facility] 2024 9:17am Segmental and somatic dysfunction [...] and somatic dysfunction of cervical region acute [facility] 2024 9:33am Segmental and somatic dysfunction of lumbar region acute March 22, 2025 9:33am Segmental and somatic dysfunction of pelvic region acute March 22, 2025 9:33am Segmental and somatic dysfunction of thoracic region acute [facility] 2024 9:33am [employer] Work Phone: 1(147) 166-704204-03-2025 Evaluation note* Diagnosis Onset Date Resolution Status [...] and somatic dysfunction of cervical region acute [facility] 2024 9:33am Segmental and somatic dysfunction of lumbar region acute March 22, 2025 9:33am Segmental and somatic dysfunction of pelvic region acute March 22, 2025 9:33am Segmental and somatic dysfunction of thoracic region acute [facility] 2024 9:33am Segmental and somatic dysfunction [...] region suspected April 05, 2025 1 0:22am [facility] Work Phone: 1(794) 383-146904-03-2025 Evaluation note* Diagnosis Onset Date Resolution Status [...] displacement, lumbar chronic April 21, 2025 9:49am [facility] Work Phone: 1([phone]) [phone] Evaluation note* Diagnosis Onset Date Resolution Status [...] Left shoulder pain inactive May 062024 10:02am [facility] Work Phone: 1(217) 311-335604-03-2025 Evaluation note* Diagnosis Onset Date Resolution Status [...] and somatic dysfunction of thoracic region acute [facility] 2024 9:17am Disc displacement, lumbar chronic March 09, 2025 9:17am Left shoulder pain inactive March 222024 8:58am Back pain acute March 22, 2025 9:33am Segmental and somatic dysfunction of cervical region acute [facility] 2024 9:33am Segmental and somatic dysfunction of lumbar region acute March 22, 2025 9:33am Segmental and somatic dysfunction of pelvic region acute March 22, 2025 9:33am Segmental and somatic dysfunction of thoracic region acute [facility] 2024 9:33am Segmental and somatic dysfunction [...] displacement, lumbar chronic June 01, 2025 10:30am [place] [employer] Work Phone: 1([phone]) 541-362404-02-2025 Telephone encounter Note* Telephone Encounter - Evon [...] her know when it is ready for car pick up driver. [facility]04-02-2025 Miscellaneous Notes* Telephone Encounter - Evon [...] her know when it is ready for car pick up driver. * Telephone Encounter - Mirna Santos MA - 02/01/2025 2:42 PM EDT Faxed form completed to [employer] with A1C and office note Mirna Santos MA * Telephone Encounter - Evon Philippe LPN - 01/29/2025 8:31 AM EDT COVER[employer]S RESPONSE. [employer] does not handle this review. Please visit [email or web address] to start a prior authorization or fax information to [phone]. Please include all supporting chart notes. You may contact [employer] at [phone]. WILL FAX PA REQUEST TO NUMBER PROVIDED. [...] needs PA due to dose change). Provider: [employer] Name: [facility] [employer] Phone number: [phone] Patient ID number: [id number] Pharmacy Name: [facility] Pharmacy Pharmacy Telephone number: [phone] documented in this encounterSt. [facility] Hospital03-31-2025 Telephone encounter Note * Telephone Encounter - Mirna Santos MA - 02/01/2025 2:42 PM EDT Faxed form completed to [employer] with A1C and office note Mirna Santos MA [facility]03-28-2025 Telephone encounter Note* Telephone Encounter - Evon Philippe LPN - 01/29/2025 8:31 AM EDT [employer] RESPONSE. [employer] does not handle this review. Please visit [email or web address] to start a prior authorization or fax information to [phone]. Please include all supporting chart notes. You may contact [employer] at [phone]. WILL FAX PA REQUEST TO NUMBER PROVIDED. Records faxed to for PA. [facility]03-27-2025 Telephone encounter Note* Telephone Encounter - Evon Philippe LPN - 01/28/2025 4:56 PM EDT Unable to complete electronically. Will try on covermymeds [facility]03-27-2025 Telephone encounter Note* Telephone Encounter - Evon Philippe LPN - 01/28/2025 4:55 PM EDT Electronic PA requested. [facility]03-27-2025 Telephone encounter Note* Telephone Encounter - Krystle Barnett, PEPE - 01/28/2025 4:51 PM EDT Prior Authorization Documentation Prior authorization requested for the following medication: Medication: Ozempic 1 mg (all though PA done in Aug 2024 and approved until Aug 2025 this needs PA due to dose change). Provider: [employer] Name: [facility] [employer] Phone number: [phone] Patient ID number: [id number] Pharmacy Name: [facility] Pharmacy Pharmacy Telephone number: [phone] [facility]03-27-2025 Telephone encounter Note* Telephone Encounter - Dennise Robles MA - 01/28/2025 8:45 AM EDT Scan on 01/28/2025 8:29 AM by ProviderSherry PA-C: BMP Scan on 01/28/2025 8:17 AM by ProviderSherry PA-C: HGB A1C [facility]03-27-2025 Miscellaneous Notes* Telephone Encounter - Dennise Robles MA - 01/28/2025 8:45 AM EDT Scan on 01/28/2025 8:29 AM by ProviderSherry PA-C: BMP Scan on 01/28/2025 8:17 AM by Sherry Mccallum PA-C: HGB A1C documented in this encounterSt. Francis Hospital03-21-2025 NoteHNO ID: [id number] Author: IVETTE GRIMES MD Service: ? Author [...] 1 tablet by mouth once daily. Ipratropium [place] (ATROVENT) 21 mcg (0.03 %) nasal spray [...] 1 Each by INTRAUTERINE route as directed. [place]-3 Fatty Acids (FISH OIL) 500 mg cap Take 1 capsule by mouth once daily. blood sugar diagnostic (BLOOD GLUCOSE TEST) test strip Test blood sugar(s) 1 times daily. Dx: Type 2 DM - Controlled E11.9 Insulin: Yes Lancets lancets Test blood sugar(s) 1 times daily. Dx: Type 2 DM - Controlled E11.9 Insulin: No Srmkafwq-Pj-Jwg-Fe-FA tab Take 1 tablet by mouth once [...] Age of Onset Alcohol/Drug Mother Heart Father CO Cancer Father PANCREATIC CANCER Diabetes Father Coronary [...] Wt Readings: Date: Wt: (more content not included)...[facility]03-21-2025 History of Present illness Narrative* [...] 1 tablet by mouth once daily. Ipratropium [place] (ATROVENT) 21 mcg (0.03 %) nasal spray [...] 1 Each by INTRAUTERINE route as directed. [place]-3 Fatty Acids (FISH OIL) 500 mg cap Take 1 capsule by mouth once daily. blood sugar diagnostic (BLOOD GLUCOSE TEST) test strip Test blood sugar(s) 1 times daily. Dx: Type 2 DM - Controlled E11.9 Insulin: Yes Lancets lancets Test blood sugar(s) 1 times daily. Dx: Type 2 DM - Controlled E11.9 Insulin: No Zlbmbhzl-Dy-Hig-Fe-FA tab Take 1 tablet by mouth once [...] Age of Onset Alcohol/Drug Mother Heart Father CO Cancer Father PANCREATIC CANCER Diabetes Father Coronary [...] six months and prn. documented in this encounterSt. [facility] Hospital02-21-2025 Telephone encounter Note * Telephone Encounter [...] Storey LPN December 25, 2024 8:[address] [facility]02-21-2025 Miscellaneous Notes* Telephone Encounter - Nirmala [...] 25, 2024 8:58 AM documented in this encounterSt. Francis Hospital02-17-2025 Telephone encounter Note * Telephone Encounter - Jumana Harrell LPN - 12/21/2024 3:19 PM EST Patient notified of results, verbalizes understanding of instructions. Pt stated she is about 80% better with the z-pack and cough drops. Will call is get worse again. Jumana Harrell LPN [facility]02-17-2025 Miscellaneous Notes* Telephone Encounter - Jumana [...] zpack? Jenni Martínez APRN.GABRIELA documented in this encounterSt. Francis Hospital02-17-2025 Telephone encounter Note * Telephone Encounter [...] improved with the zpack? Jenni Martínez APRN.GABRIELA [facility] Work Phone: 1(227) 360-335302-07-2025 Telephone encounter Note* Telephone Encounter - Jumana Harrell LPN - 12/11/2024 2:24 PM EST Patient notified of results, verbalizes understanding of instructions. Jumana Harrell LPN [facility]02-07-2025 Miscellaneous Notes* Telephone Encounter - Jumana Harrell LPN - 12/11/2024 2:24 PM EST Patient notified of results, verbalizes understanding of instructions. Jumana Harrell LPN * Telephone Encounter - Jenni Martínez APRN.CNP - 12/11/2024 2:16 PM EST Can you please call the patient and let her know that I am still waiting for x- ray results from [facility]. I went ahead and sent in [...] Provider: JENNI MARTÍNEZ APRN.CNP documented in this encounterSt. Francis Hospital02-07-2025 Telephone encounter Note * Telephone Encounter - Jenni Martínez APRN.CNP - 12/11/2024 2:16 PM EST Can you please call the patient and let her know that I am still waiting for x- ray results from [facility]. I went ahead and sent in [...] until gone. Authorizing Provider: JENNI MARTÍNEZ APRN.CNP [facility]02-07-2025 Instructions* Patient Instructions* Jenni Martínez APRN.CNP - 12/11/2024 11:32 AM EST Get chest xray completed today May use Codeine cough syrup as needed for cough Stay well hydrated Follow up pending test results. documented in this encounterSt. Francis Hospital02-07-2025 History of Present illness Narrative* Jenni [...] LAPAROSCOPY SURG CHOLECYSTECTOMY 2005 Cholecystectomy, lap (Rowena Moent) PAST SURGICAL HISTORY OF 2019 stent into [...] 1 tablet by mouth once daily. Ipratropium [place] (ATROVENT) 21 mcg (0.03 %) nasal spray [...] 1 Each by INTRAUTERINE route as directed. [place]-3 Fatty Acids (FISH OIL) 500 mg cap Take 1 capsule by mouth once daily. blood sugar diagnostic (BLOOD GLUCOSE TEST) test strip Test blood sugar(s) 1 times daily. Dx: Type 2 DM - Controlled E11.9 Insulin: Yes Lancets lancets Test blood sugar(s) 1 times daily. Dx: Type 2 DM - Controlled E11.9 Insulin: No Ylnuwkwx-Jf-Iun-Fe-FA tab Take 1 tablet by mouth once daily. No current facility-administered medications for this visit. FAMILY HISTORY Problem Relation Age of Onset Alcohol/Drug Mother Heart Father CO Cancer Father PANCREATIC CANCER Diabetes Father Coronary [...] discussed and patient voices understanding. Jenni Martínez APRN.PROJECTION ENGINEER This note was partially generated using Elastra recognition system. Note was reviewed for accuracy. There may be minor misspellings or grammar miscues with Kaesuon voice recognition. documented in this encounterSt. Francis Hospital02-07-2025 NoteHNO ID: [id number] Author: JENNI MARTÍNEZ APRN.CNP Service: ? Author [...] 1 tablet by mouth once daily. Ipratropium [place] (ATROVENT) 21 mcg (0.03 %) nasal spray [...] 1 Each by INTRAUTERINE route as directed. [place]-3 Fatty Acids (FISH OIL) 500 mg cap Take 1 capsule by mouth once daily. blood sugar diagnostic (BLOOD GLUCOSE TEST) test strip Test blood sugar(s) 1 times daily. Dx: Type 2 DM - Controlled E11.9 Insulin: Yes Lancets lancets Test blood sugar(s) 1 times daily. Dx: Type 2 DM - Controlled E11.9 Insulin: No Kykoijts-Un-Jzd-Fe-FA tab Take 1 tablet by mouth once daily. No current facility-administered medications for this visit. FAMILY HISTORY Problem Relation Age of Onset Alcohol/Drug Mother Heart Father CO Cancer Father PANCREATIC CANCER Diabetes Father Coronary [...] : No history o (more content not included)...[facility] 12-11-2024 Telephone encounter Note* Telephone Encounter - Brittney Meredith RN - 12/11/2024 8:17 AM EST Patient calling to make appt for evaluation of respiratory sx's that began approx 4 weeks ago. Pt states she feels she may have bronchitis or pneumonia. States she was at [facility] ER last month due to dizziness, [...] evaluation of respiratory sx's. Brittney Meredith RN [facility]02-07-2025 Miscellaneous Notes* Telephone Encounter - Brittney Meredith RN - 12/11/2024 8:17 AM EST Patient calling to make appt for evaluation of respiratory sx's that began approx 4 weeks ago. Pt states she feels she may have bronchitis or pneumonia. States she was at [facility] ER last month due to dizziness, [...] sx's. Brittney Meredith RN documented in this encounterSt. Francis Hospital01-22-2025 Telephone encounter Note * Telephone Encounter [...] Eric LPN November 25, 2024 2:[address] [facility]01-22-2025 Miscellaneous Notes* Telephone Encounter - Hailey [...] Thank you. Stephanie Parsons. documented in this encounterSt. Francis Hospital01-22-2025 Telephone encounter Note * Telephone Encounter [...] found Please advise. Thank you. Stephanie Parsons. [facility]01-20-2025 Telephone encounter Note* Telephone Encounter [...] Judith Cueto November 23, 2024 12:34 PM [facility]01-20-2025 Miscellaneous Notes* Telephone Encounter - [...] 23, 2024 12:34 PM documented in this encounterSt. Francis Hospital01-14-2025 NotePatient Outreach (FAMPWS) TORI GRAY ([id number]) 1980 F Date Time Provider Department 11/17/24 IVETTE GRIMES [facility] During your visit today, we recorded the following information about you: Allergies As of Date: 11/17/2024 Noted Allergy Reaction FARXIGA (DAPAGLIFLOZIN) 08/05/2024 8 - GI Upset LIDOCAINE 12/24/2019 4 - Hives METFORMIN 08/05/2024 8 - GI Upset STEROIDS (BETAMETHASONE DIPROPION*12/21/2021 4 - Hives Date Reviewed: 09/03/2024 Reviewed by: Fatuma Beckford PA-C - Fully Assessed Visit Diagnosis:Encounter for screening mammogram for breast cancer [Z12.31] Order(s):[facility] SCREENING W JAQUELIN [[id number]] Order #: [id number] FUTURE Prescriptions as of 12/18/2024 - potassium [...] tablet by mouth once daily. - Ipratropium [place] (ATROVENT) 21 mcg (0.03 %) nasal spray [...] Each by INTRAUTERINE route as directed. - [place]-3 Fatty Acids (FISH OIL) 500 mg cap Take 1 capsule by mouth once daily. - blood sugar diagnostic (BLOOD GLUCOSE TEST) test strip Test blood sugar(s) 1 times daily. Dx: Type 2 DM - Controlled E11.9 Insulin: Yes - Lancets lancets Test blood sugar(s) 1 times daily. Dx: Type 2 DM - Controlled E11.9 Insulin: No - Ffjnrtku-Xt-Ixa-Fe-FA tab Take 1 tablet by mouth once [...] 05/06/2009 01/23/2010 Routine general medical examination at [facility]*01/23/2010 12/06/2012 Class: Chronic Routine gynecological examination [Z01.419] 01/23/2010 02/22/2014 Class: Chronic Morbid Obesity [E66.01] 01/23/2010 Lumbar Disc Disorder [M51.9] 02/16/2010 Routine general medical examination at [facility]*12/06/2012 02/22/2014 Anxiety [F41.9] 06/07/2014 Type 2 [...] type 2 diabetes m (more content not included)...[facility]12-23-2024 Telephone encounter Note* Telephone Encounter [...] France RN October 26, 2024 7:[address] [facility]12-23-[facility] Miscellaneous Notes* Telephone Encounter - Priscila [...] 26, 2024 7:53 PM documented in this encounterSt. Francis Hospital12-16-2024 History of Present illness Narrative* Ivette [...] visit. Either the patient or their legal open claims representative has been informed of the risks [...] hours asneeded for wheezing/shortness of breath. Ipratropium [place] (ATROVENT) 21 mcg (0.03 %) nasal spray [...] 1 Each by INTRAUTERINE route as directed. [place]-3 Fatty Acids (FISH OIL) 500 mg cap Take 1 capsule by mouth once daily. blood sugar diagnostic (BLOOD GLUCOSE TEST) test strip Test blood sugar(s) 1 times daily. Dx: Type 2 DM - Controlled E11.9 Insulin: Yes Lancets lancets Test blood sugar(s) 1 times daily. Dx: Type 2 DM - Controlled E11.9 Insulin: No Jnecindz-Pg-Tcx-Fe-FA tab Take 1 tablet by mouth once [...] Age of Onset Alcohol/Drug Mother Heart Father CO Cancer Father PANCREATIC CANCER Diabetes Father Coronary [...] TABLET Ivette Grimes MD documented in this encounterSt. Francis Hospital12-16-2024 NoteHNO ID: [id number] Author: IVETTE GRIMES MD Service: ? Author [...] visit. Either the patient or their legal open claims representative has been informed of the risks [...] as needed for wheezing/shortness of breath. Ipratropium [place] (ATROVENT) 21 mcg (0.03 %) nasal spray [...] 1 Each by INTRAUTERINE route as directed. [place]-3 Fatty Acids (FISH OIL) 500 mg cap Take 1 capsule by mouth once daily. blood sugar diagnostic (BLOOD GLUCOSE TEST) test strip Test blood sugar(s) 1 times daily. Dx: Type 2 DM - Controlled E11.9 Insulin: Yes Lancets lancets Test blood sugar(s) 1 times daily. Dx: Type 2 DM - Controlled E11.9 Insulin: No Idmfthqp-Nm-Gvm-Fe-FA tab Take 1 tablet by mouth once [...] Age of Onset Alcohol/Drug Mother Heart Father CO Cancer Father PANCREATIC CANCER Diabetes Father Coronary [...] wheeze. No pallor. ASSESSM (more content not included)...[facility]12-16-2024 Evaluation note* Diagnosis Onset Date Resolution Status Admit Date Segmental and somatic dysfunction of lumbar region acute Oct 8:57am Segmental and somatic dysfunction of pelvic region acute Oct 8:57am Segmental and somatic dysfunction of thoracic region acute October 19, 024 8:57am Disc displacement, lumbar chronic October 19, 2024 8:57am [facility] Work Phone: 1(547) 744-169611-21-2024 History of Present illness Narrative* Ivette Grimes [...] visit. Either the patient or their legal open claims representative has been informed of the risks [...] No increased caffeine. Sugars are increased recently 276=272's. Not coming down as much as it [...] hours asneeded for wheezing/shortness of breath. Ipratropium [place] (ATROVENT) 21 mcg (0.03 %) nasal spray [...] 1 Each by INTRAUTERINE route as directed. [place]-3 Fatty Acids (FISH OIL) 500 mg cap Take 1 capsule by mouth once daily. blood sugar diagnostic (BLOOD GLUCOSE TEST) test strip Test blood sugar(s) 1 times daily. Dx: Type 2 DM - Controlled E11.9 Insulin: Yes Lancets lancets Test blood sugar(s) 1 times daily. Dx: Type 2 DM - Controlled E11.9 Insulin: No Yuwonmcn-Br-Tml-Fe-FA tab Take 1 tablet by mouth once [...] Age of Onset Alcohol/Drug Mother Heart Father CO Cancer Father PANCREATIC CANCER Diabetes Father Coronary [...] weeks Ivette Grimes MD documented in this encounterSt. Francis Hospital11-21-2024 NoteHNO ID: [id number] Author: IVETTE GRIMES MD Service: ? Author [...] visit. Either the patient or their legal open claims representative has been informed of the risks [...] No increased caffeine. Sugars are increased recently 709=724's. Not coming down as much as it [...] as needed for wheezing/shortness of breath. Ipratropium [place] (ATROVENT) 21 mcg (0.03 %) nasal spray [...] 1 Each by INTRAUTERINE route as directed. [place]-3 Fatty Acids (FISH OIL) 500 mg cap Take 1 capsule by mouth once daily. blood sugar diagnostic (BLOOD GLUCOSE TEST) test strip Test blood sugar(s) 1 times daily. Dx: Type 2 DM - Controlled E11.9 Insulin: Yes Lancets lancets Test blood sugar(s) 1 times daily. Dx: Type 2 DM - Controlled E11.9 Insulin: No Cslcrjcw-Du-Kah-Fe-FA tab Take 1 tablet by mouth once [...] Age of Onset Alcohol/Drug Mother Heart Father CO Cancer Father PANCREATIC CANCER Diabetes Father Coronary [...] Wt Readings: Date: Wt: (more content not included)...[facility]10-31-2024 Instructions* Patient Instructions* Fatuma Beckford [...] office for further instructions. documented in this encounterSt. Francis Hospital10-31-2024 NoteHNO ID: [id number] Author: FATUMA BECKFORD PA-C Service: ? Author Type: Physician Insurance Writer Type: Progress Notes Filed: 09/03/2024 13:30 Note [...] for migraine Informed Consent Consent Obtained: Written [place] Protocol A moment to CARE was completed [...] applicable Written Consent Obtained: Written LOT #: [id number] Expiration Date: Month: : 2025 Second vial: LOT #: [id number] Expiration Date: Month: Year: 2025 Injection Sites Left (Units) Left (Sites) Right (Units) Right (Sites) TOTAL (Units) Consulting Project Director 5 1 5 1 10 Procerus Units: [...] mild. Estimates 5 migraines since march. [facility] History of Present illness Narrative* Fatuma Beckford [...] for migraine Informed Consent Consent Obtained: Written Colony Protocol A moment to CARE was completed [...] applicable Written Consent Obtained: Written LOT #: [id number] Expiration Date: Month: 12 Year: 2025 Second vial: LOT #: [id number] Expiration Date: Month: Year: 2025 Injection Sites Left (Units) Left (Sites) Right (Units) Right (Sites) TOTAL (Units) Consulting Project Director 5 1 5 1 10 Procerus Units: [...] march. Fatuma Beckford PA-C documented in this encounterSt. [facility]10-29-[facility]24 Telephone encounter Note * Telephone Encounter - Rebecca Baker - 09/01/2024 4:08 PM EDT Tori was Ok'ed to get her botox appointment moved into a new patient time due to frequent rescheduling of this visit. She is now scheduled for 09/03. She has also requested a refill of her Nurtec ODT medication. Please adviseRebecca [facility] Miscellaneous Notes* Telephone Encounter - Rebecca Baker - 09/01/2024 4:08 PM EDT Tori was Ok'ed to get her botox appointment moved into a new patient time due to frequent rescheduling of this visit. She is now scheduled for 09/03. She has also requested a refill of her Nurtec ODT medication. Please adviseRebecca documented in this encounterSt. Francis Hospital10-29-2024 Telephone encounter Note * Telephone Encounter [...] with this date and time. Rebecca Baker [facility] Miscellaneous Notes* Telephone Encounter - Rebecca [...] Nieto - 09/01/2024 3:30 PM EDT 09/10 [place] res[place] to 10/08 and put on wait list. Provider will be out of office. 1st attempt to notify pt, sent MC message. documented in this encounterSt. Francis Hospital10-29-2024 Telephone encounter Note * Telephone Encounter - Tala Wilson - 09/01/2024 3:54 PM EDT Patient read mychart [facility] Telephone encounter Note* Telephone Encounter - Steph Nieto - 09/01/2024 3:30 PM EDT 09/10 [facility] appt rescheduled to 10/08 and put on wait list. Provider will be out of office. 1st attempt to notify pt, sent MC message. [facility] Telephone encounter Note* Telephone Encounter - Steph Nieto - 08/11/2024 3:58 PM EDT Pt read MC message. [facility] Miscellaneous Notes* Telephone Encounter - Steph Nieto - 08/11/2024 3:58 PM EDT Pt read MC message. * Telephone Encounter - Steph Nieto - 08/11/2024 3:32 PM EDT [facility] appt on 09/10 moved to 3 PM. 1st attempt to notify pt, sent MC message. documented in this encounterSt. Francis Hospital10-08-2024 Telephone encounter Note * Telephone Encounter - Steph Nieto - 08/11/2024 3:32 PM EDT [facility] appt on 09/10 moved to 3 PM. 1st attempt to notify pt, sent MC message. [facility] Telephone encounter Note* Telephone Encounter - [...] Salmon MA August 11, 2024 11:[address] [facility] Miscellaneous Notes* Telephone Encounter - Ingrid [...] 11, 2024 11:06 AM documented in this encounterSt. Francis Hospital10-03-2024 Telephone encounter Note * Telephone Encounter - Dennise Robles MA - 08/06/2024 10:38 AM EDT APPROVAL. OZEMPIC. EOC # [id number] VALIDITY DATES 08/06/24-08/05/25 Pharmacy informed. Dennise Robles MA [facility]24 Miscellaneous Notes* Telephone Encounter - Dennise Robles MA - 08/06/2024 10:38 AM EDT APPROVAL. SAGE. EOC # [id number] VALIDITY DATES 08/06/24-08/05/25 Pharmacy informed. Dennise Robles MA documented in this encounterSt. Francis Hospital10-02-2024 NoteHNO ID: [id number] Author: IVETTE GRIMES MD Service: ? 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 Excited for this because will not be as physical. Reviewed labs recently done at [facility]. A1c was 6.7. ldl was 105. Hdl 35 The 10-year ASCVD risk score (Tom DK, et al., 2019) is: 2.9%* Values used [...] as needed for wheezing/shortness of breath. Ipratropium [place] (ATROVENT) 21 mcg (0.03 %) nasal spray [...] 1 Each by INTRAUTERINE route as directed. [place]-3 Fatty Acids (FISH OIL) 500 mg cap Take 1 capsule by mouth once daily. blood sugar diagnostic (BLOOD GLUCOSE TEST) test strip Test blood sugar(s) 1 times daily. Dx: Type 2 DM - Controlled E11.9 Insulin: Yes Lancets lancets Test blood sugar(s) 1 times daily. 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 Excited for this because will not be as physical. Reviewed labs recently done at [facility]. A1c was 6.7. ldl was 105. Hdl 35 The 10-year ASCVD risk score (Tom DK, et al., 2019) is: 2.9%* Values used [...] hours asneeded for wheezing/shortness of breath. Ipratropium [place] (ATROVENT) 21 mcg (0.03 %) nasal spray [...] 1 Each by INTRAUTERINE route as directed. [place]-3 Fatty Acids (FISH OIL) 500 mg cap Take 1 capsule by mouth once daily. blood sugar diagnostic (BLOOD GLUCOSE TEST) test strip Test blood sugar(s) 1 times daily. Dx: Type 2 DM - Controlled E11.9 Insulin: Yes Lancets lancets Test blood sugar(s) 1 times daily. Dx: Type 2 DM - Controlled E11.9 Insulin: No Zfvfafuo-Tm-Mmu-Fe-FA tab Take 1 tablet by mouth once [...] Age of Onset Alcohol/Drug Mother Heart Father CO Cancer Father PANCREATIC CANCER Diabetes Father Coronary [...] stable. Ivette Grimes MD documented in this encounterSt. Francis Hospital09-23-2024 Telephone encounter Note * Telephone Encounter [...] Yoon LPN July 27, 2024 8:[address] [facility] Miscellaneous Notes* Telephone Encounter - Lubna [...] 27, 2024 8:45 AM documented in this encounterSt. Francis Hospital09-17-2024 Telephone encounter Note * Telephone Encounter - Ingrid Salmon MA - 07/21/2024 3:02 PM EDT Pt notified. Requested to have order faxed to [facility]. Order faxed. Ingrid Salmon MA [facility] Miscellaneous Notes* Telephone Encounter - Ingrid Salmon MA - 07/21/2024 3:02 PM EDT Pt notified. Requested to have order faxed to [facility]. Order faxed. Ingrid Salmon MA * [...] advise, Gale Bower RN documented in this encounterSt. Francis Hospital09-17-2024 Telephone encounter Note * Telephone Encounter - Ivette Grimes MD - 07/21/2024 2:[address] [facility] Telephone encounter Note* Telephone Encounter - Gale Bower RN - 07/21/2024 1:45 PM EDT Patient calls and states that cough is not getting any better. Patient states that Dr. Grimes had told her that if cough had not improved that provider wanted to order her a chest xray. Please review and advise, Gale Bower RN [facility]-06-[facility]24 Telephone encounter Note* Telephone Encounter - Nirmala Storey LPN - 07/10/2024 11:16 AM EDT Left detailed message for patient. [facility] Miscellaneous Notes* Telephone Encounter - Nirmala [...] advise, Gale Bower RN documented in this encounterSt. Francis Hospital09-06-2024 Telephone encounter Note * Telephone Encounter - Ivette Grimes MD - 07/10/2024 11:11 AM EDT Rx sent for farxiga. Lets try this Call sugars in two weeks. [facility]-05-[facility] Telephone encounter Note* Telephone Encounter - [...] Please review and advise, Gale Bower RN [facility]09-04-2024 Telephone encounter Note* Telephone Encounter - Ivette Grimes MD - 07/08/2024 2:[address] [facility]-04-2024 Miscellaneous Notes* Telephone Encounter - Ivette Grimes MD - 07/08/2024 2:03 PM EDT noted * Telephone Encounter - Dennise Robles MA - 07/08/2024 1:13 PM EDT Labs in chart review. Dennise Robles MA documented in this encounterSt. Francis Hospital09-04-2024 Telephone encounter Note * Telephone Encounter - Dennise Robles MA - 07/08/2024 1:13 PM EDT Labs in chart review. Dennise Robles MA [facility]08-30-2024 NoteHNO ID: [id number] Author: IVETTE GRIMES MD Service: ? Author [...] as needed for wheezing/shortness of breath. Ipratropium [place] (ATROVENT) 21 mcg (0.03 %) nasal spray [...] 1 Each by INTRAUTERINE route as directed. [place]-3 Fatty Acids (FISH OIL) 500 mg cap Take 1 capsule by mouth once daily. blood sugar diagnostic (BLOOD GLUCOSE TEST) test strip Test blood sugar(s) 1 times daily. Dx: Type 2 DM - Controlled E11.9 Insulin: Yes Lancets lancets Test blood sugar(s) 1 times daily. Dx: Type 2 DM - Controlled E11.9 Insulin: No Uvvviwvk-Cg-Xjv-Fe-FA tab Take 1 tablet by mouth once [...] Age of Onset Alcohol/Drug Mother Heart Father CO Cancer Father PANCREATIC CANCER Diabetes Father Coronary [...] equally round and reacti (more content not included)...[facility]08-30-2024 History of Present illness Narrative* [...] hours asneeded for wheezing/shortness of breath. Ipratropium [place] (ATROVENT) 21 mcg (0.03 %) nasal spray [...] 1 Each by INTRAUTERINE route as directed. [place]-3 Fatty Acids (FISH OIL) 500 mg cap Take 1 capsule by mouth once daily. blood sugar diagnostic (BLOOD GLUCOSE TEST) test strip Test blood sugar(s) 1 times daily. Dx: Type 2 DM - Controlled E11.9 Insulin: Yes Lancets lancets Test blood sugar(s) 1 times daily. Dx: Type 2 DM - Controlled E11.9 Insulin: No Bfxxtmpc-Bl-Yhv-Fe-FA tab Take 1 tablet by mouth once [...] Age of Onset Alcohol/Drug Mother Heart Father CO Cancer Father PANCREATIC CANCER Diabetes Father Coronary [...] follow up or prn documented in this encounterSt. Francis Hospital08-24-2024 Telephone encounter Note * Telephone Encounter [...] Lazo LPN June 27, 2024 11:[address] [facility]08-[facility] Miscellaneous Notes* Telephone Encounter - Quinn [...] 27, 2024 11:35 AM documented in this encounterSt. Francis Hospital08-24-2024 Telephone encounter Note * Telephone Encounter [...] message to pt advising of the same. Qiunn Lazo LPN June 27, 2024 11:[address] [facility]08-24-[facility]24 Miscellaneous Notes* Telephone Encounter - Quinn [...] 27, 2024 11:29 AM documented in this encounterSt. Francis Hospital08-08-2024 Telephone encounter Note * Telephone Encounter - Lubna De La Garza APRN.CNP - 06/11/2024 12:40 PM EDT Ángel Rodriges were ordered. [facility]-08-[facility] Miscellaneous Notes* Telephone Encounter - Lubna De La Garza APRN.CNP - 06/11/2024 12:40 PM EDT Ananthsalon Antelmo were ordered. * Telephone Encounter - Ingrid Salmon MA - 06/11/2024 12:25 PM EDT See mychart message documented in this encounterSt. Francis Hospital08-08-2024 Telephone encounter Note * Telephone Encounter - Ingrid Salmon MA - 06/11/2024 12:25 PM EDT See mychart message [facility] Telephone encounter Note* Telephone Encounter - Claribel Wright LPN - 06/04/2024 3:37 PM EDT Prior Auth Determination: Denied with Cover my meds. Received via: CMM Medication/ Treatment: Nurtec Reason: Outcome N/A today by [facility] Prior Authorization Department does not manage Prior Authorizations for this plan. Please contact member services phone number on the back of the member ID card. Appeal Information (if included): Re submitted via RX Benefits Faxed to [phone]08-01-2024 Miscellaneous Notes* Telephone Encounter - Claribel Wright LPN - 06/04/2024 3:37 PM EDT Prior Auth Determination: Denied with Cover my meds. Received via: CMM Medication/ Treatment: Nurtec Reason: Outcome N/A today by [facility] Prior Authorization Department does not manage Prior Authorizations for this plan. Please contact member services phone number on the back of the member ID card. Appeal Information (if included): Re submitted via RX Benefits Faxed to [phone] Confirmation received * Telephone Encounter - Claribel Wright LPN - 06/04/2024 2:22 PM EDT Prior Authorization PENDING Prior Authorization Request From: [facility] Medication/ Treatment: Nurtec Submitted Via Cover My Meds Reference# (if available): (Santos: [id number]) documented in this encounterSt. Francis Hospital08-01-2024 Telephone encounter Note * Telephone Encounter - Claribel Wright LPN - 06/04/2024 2:22 PM EDT Prior Authorization PENDING Prior Authorization Request From: [facility] Medication/ Treatment: Nurtec Submitted Via Cover My Meds Reference# (if available): (Santos: [id number]) [facility]-31[facility] History of Present illness Narrative* Ivette Grimes [...] visit. Either the patient or their legal open claims representative has been informed of the risks [...] hours asneeded for wheezing/shortness of breath. Ipratropium [place] (ATROVENT) 21 mcg (0.03 %) nasal spray [...] 1 Each by INTRAUTERINE route as directed. [place]-3 Fatty Acids (FISH OIL) 500 mg cap Take 1 capsule by mouth once daily. blood sugar diagnostic (BLOOD GLUCOSE TEST) test strip Test blood sugar(s) 1 times daily. Dx: Type 2 DM - Controlled E11.9 Insulin: Yes Lancets lancets Test blood sugar(s) 1 times daily. Dx: Type 2 DM - Controlled E11.9 Insulin: No Pleudfxv-Dq-Fdf-Fe-FA tab Take 1 tablet by mouth once [...] Age of Onset Alcohol/Drug Mother Heart Father CO Cancer Father PANCREATIC CANCER Diabetes Father Coronary [...] issues. Ivette Grimes MD documented in this encounterSt. Francis Hospital07-10-2024 Telephone encounter Note * Telephone Encounter [...] Lazo LPN May 13, 2024 11:[address] [facility]07-10-2024 Miscellaneous Notes* Telephone Encounter - Quinn [...] 13, 2024 11:29 AM documented in this encounterSt. Francis Hospital06-28-2024 Telephone encounter Note * Telephone Encounter - Cindy Edouard APRN.CNP - 05/01/2024 12:08 PM EDT Script sent. Cindy Edouard APRN.CNP [facility] Work Phone: [phone] Miscellaneous Notes* Telephone Encounter - Cindy Edouard APRN.CNP - 05/01/2024 12:08 PM EDT Script sent. Cindy Edouard APRN.CNP * Telephone Encounter - Rukhsana Wood - 05/01/2024 11:47 AM EDT Tori is calling Ivette Grimes MD today to request a medication not on current med list: Tizanidine 4 mg tablet taking every 8 hours as needed #60 refill 0 Pharmacy [facility] Please send today if possible, patient is out of this [facility] Patient has been identified by name and birthdate. Duration of symptoms: N/A Person calling: self Call patient at: on cell [phone] (home) [phone] (work) [phone] (cell) Was an appointment scheduled: No Closing statement: Results or non-symptom based questions: Thank you [facility], your call will be returned within the next business day. Rukhsana Guerrero documented in this encounterSt. Francis Hospital06-28-2024 Telephone encounter Note * Telephone Encounter - Rukhsana Wood - 05/01/2024 11:47 AM EDT Tori is calling Ivette Grimes MD today to request a medication not on current med list: Tizanidine 4 mg tablet taking every 8 hours as needed #60 refill 0 Pharmacy [facility] Please send today if possible, patient is out of this medicaiton Patient has been identified by name and birthdate. Duration of symptoms: N/A Person calling: self Call patient at: on cell [phone] (home) [phone] (work) [phone] (cell) Was an appointment scheduled: No Closing statement: Results or non-symptom based questions: Thank you for calling [facility], your call will be returned within the next business day. Rukhsana Guerrero [facility]06-17-[facility] Telephone encounter Note* Telephone Encounter - [...] RN April 20, 2024 11:[address] [facility]06-17-2024 Miscellaneous Notes* Telephone Encounter - Priscila [...] 20, 2024 11:22 AM documented in this encounterSt. Francis Hospital06-17-2024 Telephone encounter Note * Telephone Encounter [...] Yoon LPN April 20, 2024 10:[address] [facility]06-17-2024 Miscellaneous Notes* Telephone Encounter - Lubna [...] 20, 2024 10:56 AM documented in this encounterSt. Francis Hospital06-12-2024 Telephone encounter Note * Telephone Encounter - Mirna Santos MA - 04/15/2024 12:33 PM EDT PA approved till 04/14/2025. Faxed approval to pharmacy and patient left Mirna Santos MA [facility]06-12-2024 Miscellaneous Notes* Telephone Encounter - Mirna Santos MA - 04/15/2024 12:33 PM EDT PA approved till 04/14/2025. Faxed approval to pharmacy and patient left Mirna Santos MA * Telephone Encounter - Mirna Santos MA - 04/15/2024 8:42 AM EDT Submitted PA through [email or web address] for Trulicity 0.75 mg. Form faxed with office notes and A1c results Mirna Santos MA documented in this encounterSt. Francis Hospital06-12-2024 Telephone encounter Note * Telephone Encounter - Mirna Santos MA - 04/15/2024 8:42 AM EDT Submitted PA through [email or web address] for Trulicity 0.75 mg. Form faxed with office notes and A1c results Mirna Santos MA [facility]06-11-2024 Telephone encounter Note* Telephone Encounter - Sheron Anne - 04/14/2024 9:01 AM EDT Last: 02/15/2023 Noted-Follow up in 3 months. Consider transfer of care back to PCP if patient does well on the current dose of her medication atthe next visit. It does not appear that you have seen her since [facility] Miscellaneous Notes* Telephone Encounter - Sheron Anne - 04/14/2024 9:01 AM EDT Last: 02/15/2023 Noted-Follow up in 3 months. Consider transfer of care back to PCP if patient does well on the current dose of her medication atthe next visit. It does not appear that you have seen her since documented in this encounterSt. Francis Hospital06-03-2024 Telephone encounter Note * Telephone Encounter - Darrion Severino MA - 04/06/2024 2:26 PM EDT Reminder set for botox authorization to be submitted 05/31. Due for next visit 07/01/24. Previous 04/02/24. [facility]-03-[facility] Miscellaneous Notes* Telephone Encounter - Darrion Severino MA - 04/06/2024 2:26 PM EDT Reminder set for botox authorization to be submitted 05/31. Due for next visit 07/01/24. Previous 04/02/24. documented in this encounterSt. Francis Hospital05-30-2024 Instructions* Patient Instructions* Fatuma Beckford PA-C [...] at for further instructions. documented in this encounterSt. Francis Hospital05-30-2024 History of Present illness Narrative* Fatuma [...] for migraine Informed Consent Consent Obtained: Written Colony Protocol A moment to CARE was completed [...] applicable Written Consent Obtained: Written LOT #: [id number] Expiration Date: Month: 6 Year: 2025 Second vial: LOT #: [id number] Expiration Date: Month: Year: 2025 Injection Sites Left (Units) Left (Sites) Right (Units) Right (Sites) TOTAL (Units) Consulting Project Director 5 1 5 1 10 Procerus Units: [...] needed. Fatuma Beckford PA-C documented in this encounterSt. Francis Hospital04-26-2024 Telephone encounter Note * Telephone Encounter - Alyssa Andrews LPN - 02/28/2024 1:21 PM EDT Patient Medic [employer] message requesting the following refill Refill(s) Requested: Requested Prescriptions Pending Prescriptions Disp Refills tiZANidine (ZANAFLEX) 4 mg tablet 60 tablet 0 Sig: Take 1 tablet by mouth every 8 hours as needed. ALLERGIES Allergen Reactions Lidocaine Hives Steroids [Betametha* Hives (home) [phone] (work) [phone] (cell) Last Office Visit Date: 12/09/2023 Last Distance Health Visit: 07/15/2023 Future Appointment: Visit date not found The patients preferred pharmacy has been captured for this encounter? yes Request is for script(s) to be escript to pharmacy. Alyssa Andrews LPN [facility]04-26-2024 Miscellaneous Notes* Telephone Encounter - Alyssa Andrews LPN - 02/28/2024 1:21 PM EDT Patient Medic [employer] message requesting the following refill Refill(s) Requested: Requested Prescriptions Pending Prescriptions Disp Refills tiZANidine (ZANAFLEX) 4 mg tablet 60 tablet 0 Sig: Take 1 tablet by mouth every 8 hours as needed. ALLERGIES Allergen Reactions Lidocaine Hives Steroids [Betametha* Hives (home) [phone] (work) [phone] (cell) Last Office Visit Date: 12/09/2023 Last Distance Health Visit: 07/15/2023 Future Appointment: Visit date not found The patients preferred pharmacy has been captured for this encounter? yes Request is for script(s) to be escript to pharmacy. Alyssa Andrews LPN documented in this encounterSt. Francis Hospital03-20-2024 Miscellaneous Notes* Telephone Encounter - Stephanie Parsons - 01/22/2024 4:00 PM EDT Patient has been identified by name and date of : Yes Patient phones for refill(s): Patient called for a refill of Tizanidine 4 mg. (Not in refill list). Please send to [facility] pharmacy. Date of last office visit in primary care: 12/09/2023 Date of next office visit in primary care: none Please advise. Thank you. Stephanie Parsons. documented in this encounterSt. Francis Hospital03-13-2024 Miscellaneous Notes* Telephone Encounter - Roya Jaramillo LPN - 01/15/2024 12:07 PM EDT Fax received- Nurtekati has been approved from 01/15/24 - 04/16/24. Roya Jaramillo LPN * Telephone Encounter - Angely Goldsmith LPN - 01/14/2024 5:30 PM EDT Faxed Prior authorization Anthony, signed by provider to [facility] [phone]. Angely Goldsmith LPN * Telephone Encounter - Angely Goldsmith LPN - 01/09/2024 5:17 PM EST Prior Authorization from Rx Benefits received for Nurtec 75 mg, EOC number [id number] dated 01/09/2024 requested a completed drug specific form to be completed, signed by provider faxed. Copy placed on MQ bin in the [place] location to review, sign. Angely Goldsmith LPN * Telephone Encounter - Roya Jaramillo LPN - 01/03/2024 3:39 PM EST Signed completed form faxed per request. Roya Jaramillo LPN * Telephone Encounter - Mariaa Ambrosio OCCA - 12/27/2023 9:01 AM EST Prior authorization needed for [facility]. Patient has RxBenefits, form completed and OV notes attached. Placed on providers desk for signature when she returns to office 12/31. Once signed, please fax asindicated on form. Thank you. GRISELDA Jasmine documented in this encounterSt. Francis Hospital02-22-2024 Instructions* Patient Instructions* Fatuma Beckford PA-C [...] office for further instructions. documented in this encounterSt. Francis Hospital02-22-2024 History of Present illness Narrative* Fatuma [...] for migraine Informed Consent Consent Obtained: Written Colony Protocol A moment to CARE was completed [...] applicable Written Consent Obtained: Written LOT #: [id number] Expiration Date: Month: Year: 2025 Second vial: LOT #: [id number] Expiration Date: Month: Year: 2025 Injection Sites Left (Units) Left (Sites) Right (Units) Right (Sites) TOTAL (Units) Consulting Project Director 5 1 5 1 10 Procerus Units: [...] appointment. Fatuma Beckford PA-C documented in this encounterSt. Francis Hospital02-05-2024 Miscellaneous Notes* Telephone Encounter - Nirmala Storey LPN - 12/09/2023 6:36 PM EST Faxed to [facility]. * Telephone Encounter - Ivette Grimes MD - 12/09/2023 6:04 PM EST Order placed * Telephone Encounter - Nirmala Storey LPN - 12/09/2023 5:48 PM EST Please file mammo. For [facility] need to be mammo with jaquelin. After filed please fax to [facility] for patient. documented in this encounterSt. Francis Hospital02-05-2024 History of Present illness Narrative* Ivette Grimes MD - 12/09/2023 5:29 PM EST Patient presents with: Diabetes HPI: Patient presents today for office visit for follow up. Hb was ok per [facility] lab Still has menses. DM:not checking. [...] for 180 days. Take one poqhs Ipratropium [place] (ATROVENT) 21 mcg (0.03 %) nasal spray [...] 1 Each by INTRAUTERINE route as directed. [place]-3 Fatty Acids (FISH OIL) 500 mg cap Take 1 capsule by mouth once daily. blood sugar diagnostic (BLOOD GLUCOSE TEST) test strip Test blood sugar(s) 1 times daily. Dx: Type 2 DM - Controlled E11.9 Insulin: Yes Lancets lancets Test blood sugar(s) 1 times daily. Dx: Type 2 DM - Controlled E11.9 Insulin: No Zkfpesxu-Gr-Dqd-Fe-FA tab Take 1 tablet by mouth once [...] Age of Onset Alcohol/Drug Mother Heart Father [place] Cancer Father PANCREATIC CANCER Diabetes Father Coronary [...] - stable. Ivette Grimes documented in this encounterSt. [facility] Hospital12-24-[facility]23 Discharge summary Author Luan Zepeda [facility] October 27, 2023 3:44pm Note Date/Time October 27, 2023 3:16pm [facility] Medical Records Department [address] [place] [address] Emergency Department Summary 10/27/23 MR#: [id number] Acct: [id number] Name: TORI GRAY Rep #:[id number] : 1980 43 From: Luan Barry PCP: Dr. Ivette Grimes MD Status:PRE E R Location: ED [facility] History of Present Illness Chief Complaint: Ear Problem [facility] Medical History Abnormal ECG Acute bronchitis [...] Nonalcoholic hepatosteatosis Obesity Obstructive Sleep Apnea-Hypopnea Syndrome ELTITIA (obstructive sleep apnea) Pain of left scapula [...] %) nasal spray 2 spray intranasal BID vufimarhq91/20/20 [History Last Taken 08/03/23] omega-3 fatty acids [...] Ox 98 Oxygen Delivery Method Room Air [facility] Narrative Medical decision making narrative: HISTORY OF [...] similar Factors affecting care: Type 2 diabetes [facility] Narrative: Patient was hemodynamically stable, afebrile, [...] problems, contact your Primary Care Provider. Call [facility] ([phone]) or report to the closest Emergency Room. Call 911 if necessary. 10/27/23 9366 <Electronically signed by Luan Zepeda DO> Cosigner Signature (if applicable): CC: Dr. Ivette Grimes MD ~ Signed [facility] Work Phone: 1(201) 747-329112-12-2023 Miscellaneous Notes* Telephone Encounter - Fatuma Beckford PA-C - 10/15/2023 8:13 AM EST Patient was given three month supply on 09/13/23 documented in this encounterSt. [facility] Hospital12-11-2023 Miscellaneous Notes* Telephone Encounter - Quinn Lazo - 10/14/2023 1:43 PM EST Patient phones requesting refills as follows: Requested Prescriptions Pending Prescriptions Disp Refills topiramate (TOPAMAX) 100 mg tablet 60 tablet 5 Sig: Take 1 tablet by mouth two times a day. APRIL 07/15/23 NOV 12/09/23 Please review and advise. Quinn Lazo documented in this encounterSt. Francis Hospital12-11-2023 Miscellaneous Notes* Telephone Encounter - Adriana [...] (Not on refill list). Please send to [facility] pharmacy. TY documented in this encounterSt. Francis Hospital11-21-2023 Miscellaneous Notes* Telephone Encounter - Ry Wang - 09/24/2023 8:20 AM EST Patient's request for medication is as follows: Requested Prescriptions Pending Prescriptions Disp Refills FLUoxetine (PROZAC) 20 mg capsule 90 capsule 0 Sig: Take 1 capsule by mouth once daily. Prescription(s) as above. Please process accordingly. Ry Wang documented in this encounterSt. Francis Hospital11-06-2023 Miscellaneous Notes* Telephone Encounter - Quinn Lazo - 09/09/2023 1:21 PM EST Patient phones requesting refills as follows: Requested Prescriptions Pending Prescriptions Disp Refills ZOLMitriptan (ZOMIG) 5 mg tablet 9 tablet 11 Sig: Take 1 tablet (5 mg) by mouth once daily. prn APRIL 07/15/23 NOV 12/09/23 Please review and advise. Quinn Lazo documented in this [facility]10-23-2023 Miscellaneous Notes* Telephone Encounter - Nakia Caraballo RN - 08/26/2023 11:58 AM EDT Patient scheduled for 09/13/23 at 2 pm for botox. Latonia Caraballo RN, BSN documented in this [facility]10-20-2023 Miscellaneous Notes* Telephone Encounter - Nirmala Storey LPN - 08/23/2023 2:40 PM EDT Completed and faxed as requested. * Telephone Encounter - Dennise Robles - 08/20/2023 11:55 AM EDT Type of form: 2022 Healthy living program Form received via mail When form is completed, Fax form to [phone] Form has been forwarded to Physician Desk: Dr. Sydney Robles documented in this [facility]09-01-2023 Miscellaneous Notes* Telephone Encounter - [...] advise. Quinn Lazo LPN documented in this [facility]09-01-2023 Miscellaneous Notes* Telephone Encounter - [...] Not applicable Please advise. Thank you. Jenni Junie documented in this encounterSt. Francis Hospital08-16-2023 History of Present illness Narrative* Rosetta Dias LPN - 06/19/2023 4:[address] Delgado, Rosieilie was provided with powerstep original inserts, size 11, and instructed/educated in its application, wear, and care. All questions were answered, and patient was able to demonstrate competence with the necessary skills to utilize the above equipment. Per Dr. Delgado, Rosieilie was provided with achilles gel sleeve, size [...] 02/22/2014 5.3 % 12/05/2012 5.9 % HBA1C, [place] (%) Date Value 01/23/2010 5.8 PCP: Ivette [...] mouth every 8 hours as needed. Ipratropium [place] (ATROVENT) 21 mcg (0.03 %) nasal spray [...] 1 Each by INTRAUTERINE route as directed. [place]-3 Fatty Acids (FISH OIL) 500 mg cap Take 1 capsule by mouth once daily. Lancets lancets Test blood sugar(s) 1 times daily. Dx: Type 2 DM - Controlled E11.9 Insulin: No Qrvlykok-Bj-Axd-Fe-FA tab Take 1 tablet by mouth once [...] Age of Onset Alcohol/Drug Mother Heart Father [place] Cancer Father PANCREATIC CANCER Diabetes Father Coronary [...] consider spur resection MARK Stein DPM Podiatry [address] [facility] [address] Dept: [phone] Dept * Keri Parker RN - 06/19/2023 [...] developed left foot pain documented in this encounterSt. 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 Athletes [...] choose the one that fits the best. [place] with your athletic shoes to find a [...] Powerstep Original Full length. Can purchase at [employer] here in [place], [employer] in [place] or [place]. Also can find in [place] in [facility]. Powersteps can also be purchased online, [...] everything fits well together documented in this encounterSt. Francis Hospital08-04-2023 History of Present illness Narrative* Ivette [...] migraine, would like to go back to [place], noted that I do botox in this location and patient would like to transfer. EEG completed 04/02/23 at [facility] and per report, normal. Pt reports [...] 2 weeks ago - was working at [employer] ([employer]) and tubs of butter fell and hit her on the right side of the head. Pt states hurt the next day but then felt better. Did not seek medical attention. But then states went to [facility] ER where they did a CT [...] mouth every 8 hours as needed. Ipratropium [place] (ATROVENT) 21 mcg (0.03 %) nasal spray [...] 2 DM - Controlled E11.9 Insulin: No Hfvqkgpg-Pk-Fhj-Fe-FA tab Take 1 tablet by mouth once daily. FLUoxetine (PROZAC) 20 mg capsule Take 1 capsule by mouth once daily. [place]-3 Fatty Acids (FISH OIL) 500 mg cap [...] Age of Onset Alcohol/Drug Mother Heart Father [place] Cancer Father PANCREATIC CANCER Diabetes Father Coronary [...] time. Follow up after evaluation by [facility]. Ivette Mejia MD I spent a total of 42 minutes on the date of the service which included preparing to see the patient, hiua-yi-akzu patient care, completing clinical documentation, obtaining and/or [...] of your PCP/referring physician. documented in this encounterSt. Francis Hospital08-03-2023 History of Present illness Narrative* Ivette Grimes [...] mouth every 8 hours as needed. Ipratropium [place] (ATROVENT) 21 mcg (0.03 %) nasal spray [...] 1 Each by INTRAUTERINE route as directed. [place]-3 Fatty Acids (FISH OIL) 500 mg cap Take 1 capsule by mouth once daily. blood sugar diagnostic (BLOOD GLUCOSE TEST) test strip Test blood sugar(s) 1 times daily. Dx: Type 2 DM - Controlled E11.9 Insulin: Yes (Patient not taking: Reported on 05/28/2023) Lancets lancets Test blood sugar(s) 1 times daily. Dx: Type 2 DM - Controlled E11.9 Insulin: No Zquajztt-Jz-Eba-Fe-FA tab Take 1 tablet by mouth once [...] Age of Onset Alcohol/Drug Mother Heart Father CO Cancer Father PANCREATIC CANCER Diabetes Father Coronary [...] RTO in six months documented in this encounterSt. Francis Hospital07-26-2023 History of Present illness Narrative* Isiah Funes APRN.CNP - 05/29/2023 4:38 PM EDT Boot provided, see yesterdays addended noted. documented in this encounterSt. Francis Hospital07-26-2023 Miscellaneous Notes* Telephone Encounter - Priscila [...] boot. Please call Pt. documented in this encounterSt. Francis Hospital07-17-2023 Discharge summary Author Sam Pearl [facility] May 20, 2023 10:36pm Note Date/Time May 20, 2023 10:3 6pm [facility] Medical Records Department [address] [place] [id number] Emergency Department Summary 05/20/23 MR#: [id number] Acct: [id number] Name: TORI GRAY Rep #:[id number] : 1980 42 From: Sam Pearl MD [...] are now made worse since this injury. [facility] Medical History Abnormal ECG Acute bronchitis [...] #10 ea 04/26/20 [History Last Taken Unknown] qasrgtgb-wkg-Gf-FA 1 mg capsule 1 cap PO DAILY [...] restrictions temporarily. NEXUS Head CT Instrument from [facility] on 05/20/2023 All calculations should be rechecked [...] Age >=5 years ?> 0 = No Russian CT Head Injury/Trauma Rule from [facility] on 05/20/2023 All calculations should be rechecked by clinician prior to use RESULT SUMMARY: CT Unnecessary The Russian Head CT Rule suggests a head CT [...] consciousness Instructions: ED Concussion Prescriptions: No Action mzculofq-anx-Hf-FA 1 mg capsule 1 mg capsule 1 [...] your Primary Care Provider. Call [facility] ([phone]) or report to the closest Emergency Room. Call 911 if necessary. 07/2235 <Electronically signed by Sam Pearl MD> Cosigner Signature (if applicable): CC: Dr. Ivette Grimes MD ~ Signed [facility] Work Phone: 1(450) 349-674607-14-2023 Instructions* Patient Instructions* Fatuma Beckford PA-C - [...] office for further instructions. documented in this encounterSt. Francis Hospital07-14-2023 History of Present illness Narrative* Fatuma [...] days/month: 0 (0 headache-free hours) Migraine severity: 1010 After treatment with Onabotulinum Toxin A: Number [...] for migraine Informed Consent Consent Obtained: Written Colony Protocol A moment to CARE was completed [...] applicable Written Consent Obtained: Written LOT #: [id number] Expiration Date: Month: 9 Year: 2024 Second vial: LOT #: [id number] Expiration Date: Month: Year: 2024 Injection Sites Left (Units) Left (Sites) Right (Units) Right (Sites) TOTAL (Units) Consulting Project Director 5 1 5 1 10 Procerus Units: [...] therapy. Fatuma Beckford PA-C documented in this encounterSt. Francis Hospital07-05-2023 Miscellaneous Notes* Telephone Encounter - Lubna [...] you. Lubna Yoon LPN documented in this encounterSt. Francis Hospital06-02-2023 Miscellaneous Notes* Telephone Encounter - Nirmala [...] patient. Nirmala Storey LPN documented in this encounterSt. Francis Hospital05-17-2023 Miscellaneous Notes* Telephone Encounter - Nakia Caraballo RN - 03/20/2023 12:38 PM EDT Botox renewal sent to pharmacy. Will schedule at [place] once approved. Patient due 04/22/23. [facility] unchecked. Latonia Caraballo RN documented in this encounterSt. Francis Hospital05-08-2023 Miscellaneous Notes* Telephone Encounter - Nakia Caraballo RN - 03/11/2023 11:01 AM EDT Patient is not due for botox until 04/22/23. Asked her which location she prefers so we can scheduleonce approved. Latonia Caraballo RN documented in this encounterSt. Francis Hospital05-02-2023 Instructions* Patient Instructions* Fatuma Beckford PA-C - 03/05/2023 1:02 PM EDT Continue regimen Reach out with any new symptoms or worsening weakness Reach out to [facility] about moving botox Follow up with sleep provider in three months documented in this encounterSt. Francis Hospital05-02-2023 History of Present illness Narrative* Fatuma [...] Each by INTRAUTERINE route as directed. Ipratropium [place] (ATROVENT) 0.03 % nasal spray Use 2 Sprays in the nose every 12 hours. [place]-3 Fatty Acids (FISH OIL) 500 mg cap Take 1 capsule by mouth once daily. blood sugar diagnostic (BLOOD GLUCOSE TEST) test strip Test blood sugar(s) 1 times daily. Dx: Type 2 DM - Controlled E11.9 Insulin: Yes Lancets lancets Test blood sugar(s) 1 times daily. Dx: Type 2 DM - Controlled E11.9 Insulin: No Yvdglnzn-Hi-Mcu-Fe-FA tab Take 1 tablet by mouth once daily. HISTORIES PAST MEDICAL HISTORY Diagnosis Date Acute cholecystitis Cholecystitis Anxiety 06/07/2014 Chronic back pain Kidney stones LETITIA treated with BiPAP Type 2 diabetes mellitus (HCC) FAMILY HISTORY Problem Relation Age of Onset Alcohol/Drug Mother Heart Father [place] Cancer Father PANCREATIC CANCER Diabetes Father Coronary [...] dysarthria; comprehension, naming, repetition intact. Short and long-term memory intact. CN: PERRL, EOMI and without [...] migraine, would like to go back to [place], noted that I do botox in this [...] which included preparing to see the patient, dyvc-yb-aina patient care, completing clinical documentation, obtaining and/or reviewing separately obtained history, performing a medically appropriate examination, counseling and educating the pat ient/family/caregiver, and ordering medications, tests, or procedures. This document has been created with the use of voice recognition technology. It may contain inaccuracies: (e.g. misspellings, inaccurate syntax or word sense) that have escaped review. documented in this encounterSt. Francis Hospital05-02-2023 History of Present illness Narrative* Galina [...] L1 SAB0 IAB0 Ectopic0 Multiple0 Live Births1 Logistician History LMP: 01/02/2023 (Approximate), IUD Age at Menarche: Age at First : Age at Menopause: Logistician History Comments: Sexual Activity: Not Currently; No [...] Age of Onset Alcohol/Drug Mother Heart Father CO Cancer Father PANCREATIC CANCER Diabetes Father Coronary [...] external genitalia normal, normal Bartholin's glands, urethra, [place]'s glands, no vulvar lesions, no cervical lesions, [...] needed Galina Camacho MD documented in this encounterSt. Francis Hospital05-01-2023 Miscellaneous Notes* Telephone Encounter - Nirmala [...] to Mounjaro. Please advise pt. Pharmacy is [facility]. Cary Goldsmith LPN documented in this encounterSt. Francis Hospital04-28-2023 History of Present illness Narrative* Ivette [...] appointment. Ivette Mejia MD documented in this encounterSt. Francis Hospital04-28-2023 Miscellaneous Notes* Telephone Encounter - Anni Sauceda Pss - 03/01/2023 9:54 AM EDT PCP requesting the patient have a follow-up with [facility]. Spoke with the patient and she wasn't able to take the time available. The patient is scheduled for a follow-up appointment with the PA. The patient is aware of the appointment. documented in this encounterSt. Francis Hospital04-27-2023 History of Present illness Narrative* Ivette [...] Each by INTRAUTERINE route as directed. Ipratropium [place] (ATROVENT) 0.03 % nasal spray Use 2 Sprays in the nose every 12 hours. metroNIDAZOLE (METROGEL) 0.75 % Topical Gel Apply to affected area twice daily. [place]-3 Fatty Acids (FISH OIL) 500 mg cap Take 1 capsule by mouth once daily. blood sugar diagnostic (BLOOD GLUCOSE TEST) test strip Test blood sugar(s) 1 times daily. Dx: Type 2 DM - Controlled E11.9 Insulin: Yes Lancets lancets Test blood sugar(s) 1 times daily. Dx: Type 2 DM - Controlled E11.9 Insulin: No Ndapeupj-Em-Trs-Fe-FA tab Take 1 tablet by mouth once [...] Age of Onset Alcohol/Drug Mother Heart Father CO Cancer Father PANCREATIC CANCER Diabetes Father Coronary [...] BLD Ivette Grimes MD documented in this encounterSt. Francis Hospital04-27-2023 History of Present illness Narrative* Juliana Perez [...] 28, 2023 8:53 AM documented in this encounterSt. Francis Hospital04-26-2023 Miscellaneous Notes* Telephone Encounter - Mirna [...] the provider could send her something to [facility] pharmacy just to take for tomorrow. Please call and advise. documented in this encounterSt. Francis Hospital04-24-2023 Miscellaneous Notes* Telephone Encounter - Adriana [...] 02/28/23 Adriana Swanson MA documented in this encounterSt. Francis Hospital04-14-2023 History of Present illness Narrative* Grace Coronel APRN.GABRIELA - 02/15/2023 3:32 PM EDT Images from [...] visit. Either the patient or their legal open claims representative has been informed of the risks [...] has been seeing a counselor at the [facility]. Has been working with him every 3 weeks. Feels that it is going well. Interval Progress: Improved Risks and benefits of the medication, including any black box warnings, were discussed with the patient. Social History: See HPI PATIENT DATA: Generalized Anxiety Disorder Scale (VAHE-7) VAHE - 7 SCORES 10/05/2022 11/14/202202/13/2023 VAHE-7 Score 8 2 6 (0-4) minimal [...] which included preparing to see the patient, csdj-wy-yrpk patient care, completing clinical documentation, and counseling and educating the patient/family/caregiver, ordering medications/labs, and communicating with other healthcare providers. Grace Coronel APRN.PROJECTION ENGINEER February 15, 2023 3:32 PM This note was partially generated using [employer] voice recognition system. Note was reviewed for accuracy. There may be minor misspellings or grammar miscues with [employer] voice recognition. documented in this encounterSt. Francis Hospital04-12-2023 Miscellaneous Notes* Telephone Encounter - Nirmala Storey LPN - 02/13/2023 5:54 PM EDT imo.im message sent to patient. * Telephone Encounter [...] of US head/neck soft tissue received from [facility] via fax. Results scanned into [employer]. (May takea few minutes before viewable in Epic.) Quinn Lazo LPN documented in this encounterSt. Francis Hospital04-10-2023 Miscellaneous Notes* Telephone Encounter - Quinn Lazo LPN - 02/11/2023 1:15 PM EDT Patient phones requesting refills as follows: Requested Prescriptions Pending Prescriptions Disp Refills tiZANidine (ZANAFLEX) 4 mg tablet 20 tablet 0 Sig: Take 1 tablet by mouth every 8 hours as needed. APRIL 01/31/23 NOV 02/28/23 Please review and advise. Quinn Lazo LPN documented in this encounterSt. Francis Hospital03-30-2023 Miscellaneous Notes* Telephone Encounter - Juliana Murphy Ma - 01/31/2023 10:31 AM EDT Faxed order to [facility] per patient's request * Telephone Encounter - Ivette Grimes MD - 01/31/2023 9:44 AM EDT While here patient has noted an intermittent lump in left neck. Slightly sore to touch. Comes andgoes. Is a nonspecific swelling on left posterior neck. Not sure is related to her fall. Will run throughregular [employer]. Set up us at [facility]. Will run through regular insurance. documented in this encounterSt. Francis Hospital03-30-2023 History of Present illness Narrative* Ivette [...] Each by INTRAUTERINE route as directed. Ipratropium [place] (ATROVENT) 0.03 % nasal spray Use 2 Sprays in the nose every 12 hours. metroNIDAZOLE (METROGEL) 0.75 % Topical Gel Apply to affected area twice daily. [place]-3 Fatty Acids (FISH OIL) 500 mg cap Take 1 capsule by mouth once daily. blood sugar diagnostic (BLOOD GLUCOSE TEST) test strip Test blood sugar(s) 1 times daily. Dx: Type 2 DM - Controlled E11.9 Insulin: Yes Lancets lancets Test blood sugar(s) 1 times daily. Dx: Type 2 DM - Controlled E11.9 Insulin: No Nyjeriin-Kj-Zuk-Fe-FA tab Take 1 tablet by mouth once [...] Age of Onset Alcohol/Drug Mother Heart Father [place] Cancer Father PANCREATIC CANCER Diabetes Father Coronary [...] above. Ivette Grimes MD documented in this encounterSt. Francis Hospital03-23-2023 NoteHNO ID: [id number] Author: Gloria Oh MA Service: ? Author Type: Photography Professor Type: Progress Notes Filed: 01/24/2023 11:07 AM [...] ideas. The patient is not nervous/anxious.[facility]03-23-[facility]23 History of Present illness Narrative* Gloria [...] not included. 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 For any anticoagulants, the patient was advised on whether to continue or hold for this procedure. The patient expressed understanding and gave verbal consent to proceed. Medications: Refill: Continue Gabapentin as directed (PCP manages) Functional Jew: Continue PT and TENs unit for pain [...] MBA Pain Management [facility] documented in this encounterSt. Francis Hospital03-21-2023 Instructions* Patient Instructions* Jennifrank Ledesma APRN.CNP - 01/22/2023 11:47 AM EDT [...] the next 5 days. documented in this encounterSt. Francis Hospital03-21-2023 History of Present illness Narrative* Karen [...] for migraine Informed Consent Consent Obtained: Written Colony Protocol A moment to CARE was completed [...] applicable Written Consent Obtained: Written LOT #: [id number] Expiration Date: Month: 3 Year: 2024 Second vial: LOT #: [id number] Expiration Date: Month: 3 Year: 2024 Injection Sites Left (Units) Left (Sites) Right (Units) Right (Sites) TOTAL (Units) Consulting Project Director 5 1 5 1 10 Procerus Units: [...] recommendations. Karen Bansal APRN.GABRIELA documented in this encounterSt. Francis Hospital03-16-2023 History of Past illness Narrative* Problem [...] of this encounter (statuses as of 12/10/2023) [facility] History of Past illness Narrative* Problem [...] of this encounter (statuses as of 12/10/2023) [facility] History of Past illness Narrative* Problem [...] Routine general medical exam ination at a [facility] care facility 01/23/2010 12/06/2012 Overview: 01/23/2010, from [...] of this encounter (statuses as of 12/26/2023) [facility] History of Past illness Narrative* Problem [...] of this encounter (statuses as of 01/02/2024) [facility] of Past illness Narrative* Problem [...] of this encounter (statuses as of 01/15/2024) [facility] of Past illness Narrative* Problem [...] of this encounter (statuses as of 01/23/2024) 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 She feels like the back of her neck feels off. No cough or congestion. No sore throat or fever. Had a cold last week. Now better. MRI still not approved. She spoke with [employer] who states a C9 needs completed specifically [...] Each by INTRAUTERINE route as directed. Ipratropium [place] (ATROVENT) 0.03 % nasal spray Use 2 Sprays in the nose every 12 hours. [place]-3 Fatty Acids (FISH OIL) 500 mg cap Take 1 capsule by mouth once daily. blood sugar diagnostic (BLOOD GLUCOSE TEST) test strip Test blood sugar(s) 1 times daily. Dx: Type 2 DM - Controlled E11.9 Insulin: Yes Lancets lancets Test blood sugar(s) 1 times daily. Dx: Type 2 DM - Controlled E11.9 Insulin: No Saaowxso-Ys-Qgo-Fe-FA tab Take 1 tablet by mouth once [...] Age of Onset Alcohol/Drug Mother Heart Father [place] Cancer Father PANCREATIC CANCER Diabetes Father Coronary [...] S19.9XXD Ivette Grimes MD documented in this encounterSt. Francis Hospital03-14-2023 NoteHNO ID: [id number] Author: Elle Sanchez MD Service: ? Author Type: Physician Type: Progress Notes Filed: 01/24/2023 11:07 AM Note Text: 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 An override is in effect until 01/09/24. * Telephone Encounter - Mirna Santos Ma - 01/08/2023 4:55 PM EST PA was submitted through rx benefits Mirna Santos Ma documented in this encounterSt. [facility] Hospital03-09-2023 Miscellaneous Notes* Telephone Encounter - Nirmala [...] patient. Nirmala Storey LPN documented in this encounterSt. Francis Hospital03-03-2023 History of Present illness Narrative* Ivette [...] Each by INTRAUTERINE route as directed. Ipratropium [place] (ATROVENT) 0.03 % nasal spray Use 2 Sprays in the nose every 12 hours. metroNIDAZOLE (METROGEL) 0.75 % Topical Gel Apply to affected area twice daily. [place]-3 Fatty Acids (FISH OIL) 500 mg cap Take 1 capsule by mouth once daily. blood sugar diagnostic (BLOOD GLUCOSE TEST) test strip Test blood sugar(s) 1 times daily. Dx: Type 2 DM - Controlled E11.9 Insulin: Yes Lancets lancets Test blood sugar(s) 1 times daily. Dx: Type 2 DM - Controlled E11.9 Insulin: No Jrhgtegx-Oi-Efl-Fe-FA tab Take 1 tablet by mouth once [...] Age of Onset Alcohol/Drug Mother Heart Father CO Cancer Father PANCREATIC CANCER Diabetes Father Coronary [...] R51.9 Ivette Grimes MD documented in this encounterSt. Francis Hospital02-28-2023 Miscellaneous Notes* Telephone Encounter - Juliana Carrionnu Ramirez - 01/01/2023 3:02 PM EST Patient never checked in for her appointments as workers comp. Sent visits to [facility] to have C9 created and faxed [...] resubmit. Hailey Leone LPN documented in this encounterSt. Francis Hospital02-23-2023 Miscellaneous Notes* Telephone Encounter - Anni Sauceda Pss - 12/27/2022 2:22 PM EST Received the [facility] C9 form. The patient was seen on 12/07/2022. The appointment was attached to the patient's insurance not a WC claim. Spoke with the patient and was given the information. PCP Dr. Grimes is the physican of records per the patient. Claim# [id number] Date of injury: 11/24/2022 Nolberto Walden RN [phone] Case management: Cristina # [phone] Left Cristina a message to fax information and to call the office. Requested WC report and DX allowed * Telephone Encounter - Jovana Blackwell MA - 12/26/2022 2:12 PM EST Spoke to Iram. Will send OV note to complete authorization of MRI order/payment of visit to [phone]. Iram is sending c9 form for provider to complete. Gave form to Anni Sauceda per Dr. Mejia's instructions. Jovana Blackwell MA * Telephone Encounter - Jovana Blackwell MA - 12/25/2022 10:18 AM EST TC to Iram. Unable to reach. Left detailed message on VM to return call to office & ask for atriage nurse. Please transfer to neurology back line at ext. [phone]. Jovana Blackwell MA * Telephone Encounter - Marilynn Frank LPN - 12/24/2022 3:28 PM EST Patient calling said her MRI's need to be prior authorized with Concetta Amanda. Person name is lawrence number is [phone] works 8 am to 430 pm and fax number is [phone]. Patient claim number is [id number]. documented in this encounterSt. Francis Hospital02-22-2023 Miscellaneous Notes* Telephone Encounter - Quinn Lazo LPN - 12/26/2022 11:41 AM EST Patient phones requesting refills as follows: Requested Prescriptions Pending Prescriptions Disp Refills tiZANidine (ZANAFLEX) 4 mg tablet 20 tablet 0 Sig: Take 1 tablet by mouth every 8 hours as needed. APRIL 12/26/22 NOV 01/04/23 Please review and advise. Quinn Lazo LPN documented in this encounterSt. Francis Hospital02-22-2023 History of Present illness Narrative* Ivette [...] Each by INTRAUTERINE route as directed. Ipratropium [place] (ATROVENT) 0.03 % nasal spray Use 2 [...] 2 DM - Controlled E11.9 Insulin: No Heamkivl-Ry-Klq-Fe-FA tab Take 1 tablet by mouth once daily. [place]-3 Fatty Acids (FISH OIL) 500 mg cap [...] Age of Onset Alcohol/Drug Mother Heart Father CO Cancer Father PANCREATIC CANCER Diabetes Father Coronary [...] 01/07. 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 Recheck in one week. 2. Essential (primary) hypertension - ICD9: 401.9, ICD10: I10 - good control - Continue current medication(s) - Goal of BP <130/80 Ivette Grimes MD documented in this encounterSt. Francis Hospital02-20-2023 Miscellaneous Notes* Telephone Encounter - Nakia Caraballo RN - 12/24/2022 5:22 PM EST Last OV: 07/19/22 Last Refill: 08/03/22 FU OV: 01/22/23 Appropriate for refill routed to for review Latonia Caraballo RN documented in this encounterSt. Francis Hospital02-10-2023 History of Present illness Narrative* Ivette [...] waiting to schedule those. Conflicts over at [facility] with workers comp. Injury that prompted [...] Each by INTRAUTERINE route as directed. Ipratropium [place] (ATROVENT) 0.03 % nasal spray Use 2 Sprays in the nose every 12 hours. metroNIDAZOLE (METROGEL) 0.75 % Topical Gel Apply to affected area twice daily. [place]-3 Fatty Acids (FISH OIL) 500 mg cap [...] 2 DM - Controlled E11.9 Insulin: No Feqkmsfv-Ed-One-Fe-FA tab Take 1 tablet by mouth once [...] Age of Onset Alcohol/Drug Mother Heart Father CO Cancer Father PANCREATIC CANCER Diabetes Father Coronary [...] RTO in two weeks. documented in this encounterSt. Francis Hospital02-07-2023 Miscellaneous Notes* Telephone Encounter - Ingrid Salmon Ma - 12/11/2022 9:55 AM EST Last office visit: 12/07/22 F/u scheduled: 12/14/22 Ingrid Salmon Ma documented in this encounterSt. Francis Hospital02-03-2023 History of Present illness Narrative* Ivette [...] view their previous records. documented in this encounterSt. Francis Hospital02-03-2023 History of Present illness Narrative* Ivette [...] BP. Check CMP and CBC due to long-term med use. 3. LETITIA (obstructive sleep apnea) [...] when sleepy. 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 Patient now referred for NEW complaint of head trauma. ER notes and PCP notes reviewed. Per PCP note of 11/27/22: Patient presents today for office visit for ER F/U from [facility] 11/24/22. Head injury after fall. Cleaning [...] Appears pt had CT brain x2 at [facility] that were both unremarkable. Pt also previously referred to headache center to perform botox -- scheduled to get injections by January 2023. Note records show that pt has seen cards (EP) for QT prolongation concerns. Pt states on 11/24/22 was working at [facility] was doing a discharge, when bedside [...] Each by INTRAUTERINE route as directed. Ipratropium [place] (ATROVENT) 0.03 % nasal spray Use 2 Sprays in the nose every 12 hours. blood sugar diagnostic (BLOOD GLUCOSE TEST) test strip Test blood sugar(s) 1 times daily. Dx: Type 2 DM - Controlled E11.9 Insulin: Yes Lancets lancets Test blood sugar(s) 1 times daily. Dx: Type 2 DM - Controlled E11.9 Insulin: No Ftxdkces-Ur-Wuz-Fe-FA tab Take 1 tablet by mouth once daily. metroNIDAZOLE (METROGEL) 0.75 % Topical Gel Apply to affected area twice daily. (Patient not taking: Reported on 12/07/2022) [place]-3 Fatty Acids (FISH OIL) 500 mg cap Take 1 capsule by mouth once daily. (Patient taking differently: Take 1 tablet by mouth once daily. 1200 mg) HISTORIES PAST MEDICAL HISTORY Diagnosis Date Acute cholecystitis Cholecystitis Anxiety 06/07/2014 Chronic back pain Kidney stones LETITIA treated with BiPAP Type 2 diabetes mellitus (HCC) FAMILY HISTORY Problem Relation Age of Onset Alcohol/Drug Mother Heart Father CO Cancer Father PANCREATIC CANCER Diabetes Father Coronary [...] which included preparing to see the patient, dkvg-xi-jnor patient care, completing clinical documentation, obtaining and/or reviewing separately obtained history, performing a medically appropriate examination, counseling and educating the pat ient/family/caregiver, ordering medications, tests, or procedures, and communicating results to thepatient/family/caregiver. documented in this encounterSt. Francis Hospital01-31-2023 Miscellaneous Notes* Telephone Encounter - Marilynn Gómezgeremias SÁNCHEZ - 12/04/2022 9:52 AM EST [facility] calling asking for copy of 11/27/2022 office visit notes and copy of letter off work to be faxed to [phone] with claim number [id number]. Printed and faxed as requested. documented in this encounterSt. Francis Hospital01-30-2023 Miscellaneous Notes* Telephone Encounter - Ivette [...] agreeable. Mechelle Velasquez RN documented in this encounterSt. Francis Hospital01-27-2023 History of Present illness Narrative* Ivette [...] Each by INTRAUTERINE route as directed. Ipratropium [place] (ATROVENT) 0.03 % nasal spray Use 2 Sprays in the nose every 12 hours. metroNIDAZOLE (METROGEL) 0.75 % Topical Gel Apply to affected area twice daily. [place]-3 Fatty Acids (FISH OIL) 500 mg cap [...] 2 DM - Controlled E11.9 Insulin: No Owabbedj-Uj-Oxp-Fe-FA tab Take 1 tablet by mouth once [...] Age of Onset Alcohol/Drug Mother Heart Father CO Cancer Father PANCREATIC CANCER Diabetes Father Coronary [...] ICD10: S06.0X9A Ivette Grimes documented in this encounterSt. Francis Hospital01-26-2023 Miscellaneous Notes* Telephone Encounter - Elle [...] her appointment for 12/05/22 with you in [place] as she is not sure if this will effect her. Please advise. Darrion Shah documented in this encounterSt. Francis Hospital01-24-[address] Callejas [facility] November 27, 2022 6:34pm Note Date/Time November 27, 2022 3 :56pm [facility] Medical Records Department [address] [place] [address] Emergency Department Summary 11/27/22 MR#: [id number] Acct: [id number] Name: TORI GRAY Rep #:[id number] : 1980 42 From: Tod Callejas MD [...] other symptoms consistent with a viral illness. [facility] Medical History Acute bronchitis Acute cholecystitis [...] #10 ea 04/26/20 [History Last Taken Unknown] uqojzzkd-eby-Re-FA 1 mg capsule 1 cap PO DAILY [...] concussion Instructions: ED Concussion Prescriptions: No Action ydyhfnud-ydv-Bc-FA 1 mg capsule 1 mg capsule 1 [...] your Primary Care Provider. Call [facility] ([phone]) or report to the closest Emergency Room. Call 911 if necessary. 11/27/221833 <Electronically signed by Tod Callejas MD> Cosigner Signature (if applicable): CC: Dr. Ivette Grimes MD ~ Signed [facility] Work Phone: [phone]) 599-398001-24-2023 History of Present illness Narrative* Ivette Grimes MD - 11/27/2022 1:48 PM EST Patient presents with: ER F/U HPI: Patient presents today for office visit for ER F/U from [facility] 11/24/22. Head injury after fall. Cleaning [...] Each by INTRAUTERINE route as directed. Ipratropium [place] (ATROVENT) 0.03 % nasal spray Use 2 Sprays in the nose every 12 hours. metroNIDAZOLE (METROGEL) 0.75 % Topical Gel Apply to affected area twice daily. [place]-3 Fatty Acids (FISH OIL) 500 mg cap [...] 2 DM - Controlled E11.9 Insulin: No Awytewsf-Sd-Hda-Fe-FA tab Take 1 tablet by mouth once [...] Age of Onset Alcohol/Drug Mother Heart Father CO Cancer Father PANCREATIC CANCER Diabetes Father Coronary [...] S06.0X9A Ivette Grimes MD documented in this encounterSt. Francis Hospital01-20-2023 Miscellaneous Notes* Telephone Encounter - Qunin Lazo LPN - 11/23/2022 9:15 AM EST [...] advise. Quinn Lazo LPN documented in this encounterSt. Francis Hospital01-12-2023 Miscellaneous Notes* Telephone Encounter - Jumana Harrell LPN - 11/15/2022 8:34 AM EST Patient phones requesting refills as follows: Requested Prescriptions Pending Prescriptions Disp Refills tiZANidine (ZANAFLEX) 4 mg tablet 20 tablet 0 Sig: Take 1 tablet by mouth every 8 hours as needed. APRIL-09/04/22 Labs-09/06/22 NOV-12/06/22 med filled 10/05/22 Please review and advise. Jumana Harrell LPN documented in this encounterSt. Francis Hospital01-05-2023 NoteHNO ID: [id number] Author: Adelina Mason APRN.PROJECTION ENGINEER Service: ? Author Type: Nurse Practitioner Type: Progress Notes Filed: 11/08/2022 1:55 PM Note Text: [facility] [place] [facility] Today's Date: 11/08/2022 Last Visit: 07/19/22 [...] activity was identified. 11/08/2022 by Adelina Mason APRN.PROJECTION ENGINEER Allergies: ALLERGIES Allergen Reactions Lidocaine Hives Steroids [...] encounter deepali (more content not included)...[facility] 11-08-2022 NoteHNO ID: [id number] Author: Gloria Oh MA Service: ? Author Type: Photography Professor Type: Progress Notes Filed: 11/08/2022 1:55 PM [...] ideas. The patient is not nervous/anxious.[facility]01-05-2023 Miscellaneous Notes* Telephone Encounter - Vito [...] No 9. Does this procedure require a route driver? Yes If yes, has patient been notified that a route driver is needed and must be present [...] COVID vaccine.) Vito Mancera documented in this encounterSt. Francis Hospital01-05-2023 Instructions* Patient Instructions* Adelina Mason APRN.CNP - 11/08/2022 1:54 PM EST Activity as tolerated Use Ice and/or heat as tolerated as needed documented in this encounterSt. Francis Hospital01-05-2023 History of Present illness Narrative* Adelina Mason APRN.CNP - 11/08/2022 1:30 PM EST Images from the original note were not included. [facility] [place] [facility] Today's Date: 11/08/2022 Last Visit: 07/19/22 [...] suspiciousactivity was identified. 11/08/2022 by Adelina Mason APRN.PROJECTION ENGINEER Allergies: ALLERGIES Allergen Reactions Lidocaine Hives Steroids [...] Continue Gabapentin as directed (PCP manages) Functional Jew: Continue PT and TENs unit for pain [...] decision making from today's date. Adelina Mason APRN.CNP Pain Management [facility] * Gloria Oh MA - 11/08/2022 [...] patient is not nervous/anxious. documented in this encounterSt. Francis Hospital12-09-2022 Instructions* Patient Instructions* Grace Coronel APRN.CNP [...] - Call the National Suicide Hotline at 1-265-AZQWIMU ( ) or 3-467-737-TALK (9828) - Text 4YIJV to 991829 Medication Update: - Prozac 10 mg - take 1 capsule once daily for 7 days; then take 2 capsules once daily after that. Next appointment: --Schedule in 4 to 6 weeks or sooner if needed -- You may call the department appointment line at [phone] to schedule your appointment. -- Please call my nurse Coretta at [phone] or send me a message in Vidmaker with any questions or concerns between appointments. documented in this encounterSt. Francis Hospital12-09-2022 History of Present illness Narrative* Grace [...] her. They get along well. 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 REFERRAL SOURCE: PCP - [...] report that daughter has support from her fiberglass product tester and therapist and has been doing better. [...] Reported on 09/04/2022) 1 Each 999 fexofenadine (AMLA ALLERGY) 180 mg tablet Take 1 tablet [...] current PAP mask.) 1 Device 99 Ipratropium [place] (ATROVENT) 0.03 % nasal spray Use 2 Sprays in the nose every 12 hours. 1 Bottle2 metroNIDAZOLE (METROGEL) 0.75 % Topical Gel Apply to affected area twice daily. 45 g 2 [place]-3 Fatty Acids (FISH OIL) 500 mg cap Take 1 capsule by mouth once daily. 30 capsule 11 blood sugar diagnostic (BLOOD GLUCOSE TEST) test strip Test blood sugar(s) 1 times daily. Dx: Type 2 DM - Controlled E11.9 Insulin: Yes 50 Strip 11 Lancets lancets Test blood sugar(s) 1 times daily. Dx: Type 2 DM - Controlled E11.9 Insulin: No 100Each 11 Bhkhybqj-Jn-Epq-Fe-FA tab Take 1 tablet by mouth once daily. 0 No current facility-administered medications for this visit. VITAL SIGNS: There were no vitals filed for this visit. ROS: All other systems negative. PSYCHIATRIC HISTORY: Prior Diagnosis: Generalized Anxiety Disorder, and Depression Prior Provider: No prior psychiatrist Therapist: Previously followed at the counseling center. Stopped during the pandemic. Current Chemistry Tutor: No Last Hospitalization: Denies hospitalization. ECT: No Previous Discontinued Psychiatric Med Trials: Ativan as needed PRN. Paxil, Buspar (low dose), Wellbutrin SUBSTANCE USE HISTORY: Nicotine: None Caffeine: Mert, 1/day Alcohol: No history of use or dependence Marijuana: No history of use or dependence Cocaine: No history of use or dependence Opiods: No history of use or dependence SPIRITUALITY: Orthodoxy [facility]: Tori Gray is the oldest of 2 siblings. Her brother lives in [place]. The patient was born in [place] and raised in [place], [place]. She completed Associates degree in psychology. [...] which included preparing to see the patient, urpr-rw-gbcm patient care, completing clinical documentation, obtaining and/or reviewing separately obtained history, counseling and educating the patient/family/caregiver, ordering medications, ananth ts, or procedures, communicating with other HCPs (not separately reported), and independently interpreting results (not separately reported). ADD ON PSYCHOTHERAPY CODE : No SIGNATURE: Grace Coronel APRN.CNP PATIENT NAME: Tori Gray DATE: October 12, 2022 TIME: 8:40 AM PAGER : documented in this encounterSt. Francis Hospital12-06-2022 Miscellaneous Notes* Telephone Encounter - LEVAR Jasmine - 10/09/2022 8:44 AM EST Patient has been identified by name and date of : Yes Patient phones for refill(s): Requested Prescriptions Pending Prescriptions Disp Refills topiramate (TOPAMAX) 100 mg tablet 60 tablet 2 Sig: Take 1 tablet by mouth twice daily. Date of last office visit in primary care: [facility] 07/19/2022 with Karen Bansal APRN.PROJECTION ENGINEER No appointment scheduled [facility] Notes: Plan: All options for treatment discussed. [...] Thank you. LEVAR Jasmine documented in this encounterSt. Francis Hospital12-02-2022 Miscellaneous Notes* Telephone Encounter - Quinn Lazo LPN - 10/05/2022 8:41 AM EST Patient phones requesting refills as follows: Requested Prescriptions Pending Prescriptions Disp Refills tiZANidine (ZANAFLEX) 4 mg tablet 20 tablet 0 Sig: Take 1 tablet by mouth every 8 hours as needed. [facility] 09/04/22 NOV 11/01/22 Please review and advise. Quinn Lazo LPN documented in this encounterSt. Francis Hospital11-29-2022 Miscellaneous Notes* Telephone Encounter - Adriana [...] can do? Adriana Licona documented in this encounterSt. Francis Hospital11-16-2022 Miscellaneous Notes* Telephone Encounter - Lubna [...] you. Lubna Yoon LPN documented in this encounterSt. Francis Hospital11-09-2022 History of Present illness Narrative* WELLINGTON Fine - 09/12/2022 1:57 PM EST BEHAVIORAL HEALTH SOCIAL WORK QUICK NOTE Provider Action/RADHAI Needs appointment scheduled with Grace Coronel CNP. Will forward chart to Grace and her CLAY MAKER to assist with scheduling. Patient identified for [facility] from: PCP Reason for referral: Resources Behavioral Health Resources: Psychiatry med management;Psychology - talk therapy [facility] encounter type: Chart Review Attempts to Outreach: 1 attempt Referral made: Psychiatry - Internal;Psychology - External;Psychology - Internal Psychiatry-Internal referral type: Medication Management Psychology-Internal referral type: Therapy Psychology-External referral type: Therapy Reason for external referral: Wait times at F too long Final Disposition: Resources given Patient Discharged?: Yes Patient reported that caregiver was able to meet their needs today?: N/A Pt identified by name and . Patient interested in seeing psychiatry at [facility], specifically Grace Coronel, PROJECTION ENGINEER at therequest of pt's PCP. SW will route chart to Grace and her nurse, Coretta Spain who can assist with patient scheduling. Patient states she's on a wait list for counseling at agencies near her home. No needs further from this SW at this time. WELLINGTON Fine, ACM-SW documented in this encounterSt. Francis Hospital11-09-2022 Miscellaneous Notes* Addendum Note - Ivette Grimes MD - 09/12/2022 1:19 PM ESTAddended by: IVETTE GRIMES on: 09/12/2022 01:19 PM Modules accepted: Orders * Telephone Encounter - Ivette Grimes MD - 09/12/2022 1:18 PM EST Needs set up with Grace documented in this encounterSt. Francis Hospital11-03-2022 Miscellaneous Notes* Telephone Encounter - Nakia Caraballo RN - 09/06/2022 12:44 PM EDT Patient is scheduled for botox on 09/13/22 at 1:30 pm with Kaylen. Latonia Caraballo RN documented in this encounterSt. Francis Hospital11-01-2022 Miscellaneous Notes* Telephone Encounter - Jovana Blackwell MA - 09/04/2022 3:01 PM EDT Clarified with patient [facility] will be receiving 2 new providers able to administer injections. Patient will continue with plan to stay within [facility] for injections & just follow up in [place] when neuro providers are available to schedule. Jovana Blackwell MA documented in this encounterSt. Francis Hospital11-01-2022 History of Past illness Narrative* Problem [...] of this encounter (statuses as of 09/04/2022) [facility] of Past illness Narrative* Problem [...] of this encounter (statuses as of 09/04/2022) [facility] of Past illness Narrative* Problem [...] of this encounter (statuses as of 09/06/2022) [facility] of Past illness Narrative* Problem [...] of this encounter (statuses as of 09/07/2022) [facility] of Past illness Narrative* Problem [...] of this encounter (statuses as of 09/12/2022) [facility] of Past illness Narrative* Problem [...] of this encounter (statuses as of 09/12/2022) [facility] Past illness Narrative* Problem [...] of this encounter (statuses as of 09/12/2022) [facility] Past illness Narrative* Problem [...] of this encounter (statuses as of 09/19/2022) [facility] Past illness Narrative* Problem [...] of this encounter (statuses as of 10/02/2022) [facility] Past illness Narrative* Problem [...] of this encounter (statuses as of 10/05/2022) [facility] Past illness Narrative* Problem [...] of this encounter (statuses as of 10/09/2022) [facility] Past illness Narrative* Problem [...] of this encounter (statuses as of 10/18/2022) [facility] Past illness Narrative* Problem [...] of this encounter (statuses as of 10/21/2022) [facility] Past illness Narrative* Problem [...] of this encounter (statuses as of 11/09/2022) [facility] Past illness Narrative* Problem [...] of this encounter (statuses as of 11/15/2022) [facility] Past illness Narrative* Problem [...] of this encounter (statuses as of 11/21/2022) [facility] Past illness Narrative* Problem [...] of this encounter (statuses as of 11/23/2022) [facility] illness Narrative* Problem [...] of this encounter (statuses as of 11/27/2022) [facility] Past illness Narrative* Problem [...] of this encounter (statuses as of 11/29/2022) [facility] Past illness Narrative* Problem [...] of this encounter (statuses as of 11/30/2022) [facility] Past illness Narrative* Problem [...] of this encounter (statuses as of 12/04/2022) [facility] Past illness Narrative* Problem [...] of this encounter (statuses as of 12/08/2022) [facility] Past illness Narrative* Problem [...] of this encounter (statuses as of 12/08/2022) [facility] Narrative* Problem [...] of this encounter (statuses as of 12/11/2022) [facility] History of Past illness Narrative* Problem [...] of this encounter (statuses as of 12/11/2022) [facility] Past illness Narrative* Problem [...] of this encounter (statuses as of 12/14/2022) [facility] Past illness Narrative* Problem [...] of this encounter (statuses as of 12/21/2022) [facility] of Past illness Narrative* Problem [...] of this encounter (statuses as of 12/25/2022) [facility] History of Past illness Narrative* Problem [...] of this encounter (statuses as of 12/26/2022) [facility] of Past illness Narrative* Problem [...] facility 01/23/2010 12/06/2012 Overview: 01/23/2010, from Dr. Wihte Routine gynecological examination 01/23/2010 02/22/2014 SACROILIITIS 05/06/2009 [...] of this encounter (statuses as of 12/26/2022) [facility] Past illness Narrative* Problem [...] of this encounter (statuses as of 01/04/2023) [facility] Past illness Narrative* Problem [...] of this encounter (statuses as of 01/07/2023) [facility] Past illness Narrative* Problem [...] of this encounter (statuses as of 01/10/2023) [facility] illness Narrative* Problem [...] of this encounter (statuses as of 01/11/2023) [facility] Past illness Narrative* Problem [...] of this encounter (statuses as of 01/15/2023) [facility] Past illness Narrative* Problem [...] of this encounter (statuses as of 01/17/2023) [facility] Past illness Narrative* Problem [...] of this encounter (statuses as of 01/22/2023) [facility] Past illness Narrative* Problem [...] of this encounter (statuses as of 01/24/2023) [facility] Past illness Narrative* Problem [...] of this encounter (statuses as of 01/31/2023) [facility] Past illness Narrative* Problem [...] of this encounter (statuses as of 01/31/2023) [facility] illness Narrative* Problem [...] of this encounter (statuses as of 02/11/2023) [facility] illness Narrative* Problem [...] of this encounter (statuses as of 02/14/2023) [facility] illness Narrative* Problem [...] of this encounter (statuses as of 02/16/2023) [facility] illness Narrative* Problem [...] of this encounter (statuses as of 02/25/2023) [facility] Past illness Narrative* Problem [...] of this encounter (statuses as of 02/27/2023) [facility] illness Narrative* Problem [...] of this encounter (statuses as of 02/28/2023) [facility] illness Narrative* Problem [...] of this encounter (statuses as of 03/01/2023) [facility] illness Narrative* Problem [...] of this encounter (statuses as of 03/01/2023) [facility] illness Narrative* Problem [...] of this encounter (statuses as of 03/04/2023) [facility] illness Narrative* Problem [...] of this encounter (statuses as of 03/05/2023) [facility] illness Narrative* Problem [...] of this encounter (statuses as of 03/05/2023) [facility] illness Narrative* Problem [...] of this encounter (statuses as of 03/05/2023) [facility] illness Narrative* Problem [...] of this encounter (statuses as of 03/13/2023) [facility] Narrative* Problem [...] of this encounter (statuses as of 03/20/2023) [facility] illness Narrative* Problem [...] of this encounter (statuses as of 03/20/2023) [facility] illness Narrative* Problem [...] of this encounter (statuses as of 04/05/2023) [facility] illness Narrative* Problem [...] of this encounter (statuses as of 05/08/2023) [facility] illness Narrative* Problem [...] of this encounter (statuses as of 05/17/2023) [facility] illness Narrative* Problem [...] of this encounter (statuses as of 05/29/2023) [facility] illness Narrative* Problem [...] of this encounter (statuses as of 05/30/2023) [facility] illness Narrative* Problem [...] of this encounter (statuses as of 06/06/2023) [facility] illness Narrative* Problem [...] of this encounter (statuses as of 06/08/2023) [facility] illness Narrative* Problem [...] of this encounter (statuses as of 06/10/2023) [facility] illness Narrative* Problem [...] of this encounter (statuses as of 06/22/2023) [facility] illness Narrative* Problem [...] of this encounter (statuses as of 07/05/2023) [facility] Narrative* Problem [...] of this encounter (statuses as of 07/09/2023) [facility] illness Narrative* Problem [...] of this encounter (statuses as of 08/23/2023) [facility] illness Narrative* Problem [...] of this encounter (statuses as of 08/26/2023) [facility] illness Narrative* Problem [...] of this encounter (statuses as of 09/08/2023) [facility] illness Narrative* Problem [...] of this encounter (statuses as of 09/10/2023) [facility] illness Narrative* Problem [...] of this encounter (statuses as of 09/25/2023) [facility] Past illness Narrative* Problem [...] of this encounter (statuses as of 10/14/2023) [facility] Past illness Narrative* Problem [...] of this encounter (statuses as of 10/15/2023) [facility] Past illness Narrative* Problem [...] of this encounter (statuses as of 10/16/2023) [facility] Past illness Narrative* Problem [...] of this encounter (statuses as of 12/06/2023) [facility] Instructions* Patient Instructions* Ivette Grimes MD - 09/04/2022 12:13 PM EDT Counseling [facility] Psychiatry Services [facility] [address] [place] [address] *counseling [facility] [address] [facility], [facility] [phone] *counseling [place] [address] [facility] [place] [address] *counseling [facility] [address] [place], [place] [address] *counseling and psychiatry [address] [phone] *counseling [place] [address] [place] [address] *counseling [facility] [address] [place] [address] *counseling [place] [address] [place] [address] *counseling [employer] [address] [place], [place] [phone] [facility] [address] [place] [address] *counseling [facility] [address] [place], [place] [phone] [facility] [employer] [address] [place], [place] [phone] *counseling Rosio Chatman [facility] [place] [address] [facility] [address] [place], [place] [phone] [facility] [address] [facility] [place] [address] *counseling [email or web address] [address] [facility] [address] [place], [place] [phone] *counseling [facility] [address] [place], [place] [phone] *counseling and psychiatry [facility] [place], [facility] [address] [facility] [address] [place], [place] [address] *psychiatry [facility] [phone] *grief counseling, individual and groups *If you ever experience a mental health crisis please call [phone], [phone], Please verify with insurance provider for coverage Provide services on a sliding fee scale for [facility] residents. [facility] [address] [place] [phone] *Counseling [facility] Office [address] [place], [place] [address] *Counseling, Psychiatry and Case Management [address] [address] *Counseling [place] [address] [place] [address] *Counseling [place] [address] [place] [address] *Counseling [place] [address] [place] [address] *Counseling [place] [address] [place] [address] *Counseling/mental health and substance use treatment [facility] [address] [place] [address] [place] [address] [place], [place] [address] [facility] [address] [place] [address] *Addiction services, services for victims of domestic violence and sexual assault, housing services [facility] -safe, alcohol and drug free environment [facility] [phone] *free grief services, individual and group *If you ever experience a mental health crisis please contact [phone] or go to the nearest ER. Please verify with insurance provider for coverage documented in this encounterSt. [facility] History of Present illness Narrative* Ivette [...] for depression. Was seen by cardiology in [place] who referred her to EPS. Appt is [...] in bed with current PAP mask. Ipratropium [place] (ATROVENT) 0.03 % nasal spray Use 2 Sprays in the nose every 12 hours. metroNIDAZOLE (METROGEL) 0.75 % Topical Gel Apply to affected area twice daily. [place]-3 Fatty Acids (FISH OIL) 500 mg cap Take 1 capsule by mouth once daily. blood sugar diagnostic (BLOOD GLUCOSE TEST) test strip Test blood sugar(s) 1 times daily. Dx: Type 2 DM - Controlled E11.9 Insulin: Yes Lancets lancets Test blood sugar(s) 1 times daily. Dx: Type 2 DM - Controlled E11.9 Insulin: No Yklpcfht-Xw-Iib-Fe-FA tab Take 1 tablet by mouth once [...] Age of Onset Alcohol/Drug Mother Heart Father CO Cancer Father PANCREATIC CANCER Diabetes Father Diabetes [...] treatment. Ivette Grimes MD documented in this encounterSt. [facility] Hospital10-[facility]22 History of Present illness Narrative* Ivette [...] in bed with current PAP mask. Ipratropium [place] (ATROVENT) 0.03 % nasal spray Use 2 Sprays in the nose every 12 hours. metroNIDAZOLE (METROGEL) 0.75 % Topical Gel Apply to affected area twice daily. [place]-3 Fatty Acids (FISH OIL) 500 mg cap Take 1 capsule by mouth once daily. blood sugar diagnostic (BLOOD GLUCOSE TEST) test strip Test blood sugar(s) 1 times daily. Dx: Type 2 DM - Controlled E11.9 Insulin: Yes Lancets lancets Test blood sugar(s) 1 times daily. Dx: Type 2 DM - Controlled E11.9 Insulin: No Nldoxtum-Nt-Wdh-Fe-FA tab Take 1 tablet by mouth once [...] Age of Onset Alcohol/Drug Mother Heart Father CO Cancer Father PANCREATIC CANCER Diabetes Father Diabetes [...] in am in person documented in this encounterSt. [facility] Hospital10-18-2022 Miscellaneous Notes* Telephone Encounter - Nakia Caraballo RN - 08/21/2022 1:02 PM EDT Botox approved 08/15/22-01/30/23. Patient made aware that we will get her scheduled. Latonia Caraballo RN documented in this encounterSt. Francis Hospital10-05-2022 Miscellaneous Notes* Telephone Encounter - Adelina Mason APRN.PROJECTION ENGINEER - 08/08/2022 12:53 PM EDT Please advise patient insurance will not approve the RFA of her shoulder. Another option would be to repeat the LEFT scapular NB, but with steroids for a therapeutic effect. If she would like to proceed with this option please let me know and will place the order. Thank you, Adelina Mason APRN.GABRIELA documented in this encounterSt. Francis Hospital10-05-2022 Miscellaneous Notes* Telephone Encounter - Brittney Cueto - 08/08/2022 10:08 AM EDT Spoke with the patient she has not heard back from [facility] will try them again if not able to reach them she will call [facility] back to schedule. documented in this encounterSt. Francis Hospital09-30-2022 Miscellaneous Notes* Telephone Encounter - Karen Bansal APRN.CNP - 08/03/2022 10:33 AM EDT Rizatriptan sent to pharmacy. Stop sumatriptan. * Telephone Encounter - Nakia Caraballo RN - 08/03/2022 9:03 AM EDT Patient reporting that sumatriptan is not helping migraines. Asking for another treatment. Botox referral was sent but still pending. Latonia Caraballo RN documented in this encounterSt. Francis Hospital09-29-2022 History of Present illness Narrative* Ivette [...] her cpap. Needs new machine. 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 . Will be seeing cardiology. [...] in bed with current PAP mask. Ipratropium [place] (ATROVENT) 0.03 % nasal spray Use 2 Sprays in the nose every 12 hours. metroNIDAZOLE (METROGEL) 0.75 % Topical Gel Apply to affected area twice daily. [place]-3 Fatty Acids (FISH OIL) 500 mg cap Take 1 capsule by mouth once daily. blood sugar diagnostic (BLOOD GLUCOSE TEST) test strip Test blood sugar(s) 1 times daily. Dx: Type 2 DM - Controlled E11.9 Insulin: Yes Lancets lancets Test blood sugar(s) 1 times daily. Dx: Type 2 DM - Controlled E11.9 Insulin: No Bemdayip-Mo-Iyf-Fe-FA tab Take 1 tablet by mouth once [...] Age of Onset Alcohol/Drug Mother Heart Father CO Cancer Father PANCREATIC CANCER Diabetes Father Diabetes [...] RTO in six months documented in this encounterSt. Francis Hospital09-28-2022 Miscellaneous Notes* Telephone Encounter - Nakia Caraballo RN - 08/01/2022 1:21 PM EDT Botox referral sent to pharmacy. Latonia Caraballo RN documented in this encounterSt. Francis Hospital09-19-2022 Miscellaneous Notes* Telephone Encounter - Dayanna [...] 07/2022 Last refill: 07/2021 documented in this encounterSt. Francis Hospital09-15-2022 Instructions* Patient Instructions* Gabi Cornelius APRN.GABRIELA - [...] Feverfew: Feverfew is a common garden herb [place] to [place] and popular in [place] [...] pepperoni, Pickled leblanc Pods of broad jaquez (Tanzanian beans, Barbadian pea pods, Maori (antwan) beans, saldana and navy beans Ripe [...] too muchlight. These can be obtained at [employer]Locationary or [employer]Locationary Foods: see list above. 2. Limit use of acute treatments (xlix-wdc-pjnbiwc medications, triptans, etc.) to no more than [...] and quiet environment. Relax and reduce stress. Numvabm1Vpgay is a free félix that can instruct you on some simple relaxtionand breathing techniques. Http://Fobbler is a free website that provides teaching [...] ensuing treatment plans will be released via Vidmaker and discussedduring your follow-up appointment. MyChart: Please ask the schedulers to give you an activation code. The main way of communication isby Medic Vision Brain Technologieshart rather than phone lines, so if you have not signed up, please do so. Vidmaker is also theway that you can review your labs and testing. We are not able to contact everyone to tell them results are normal. If you do not hear back from us regarding testing you have had, it should be considered normal or within normal range. If you have any questions about the results, you are free to message us. [facility] [employer] is meant for simple questions regarding medications, possible side effects, or other simplestraight forward questions in limited sentences, rather than multiple paragraphs of discussion. Vidmaker is not meant for, or efficient for [...] do not comment on most testing on HearToday.Org in a message or commentary unless there is a concern. You will not receive a message from me of the result unless there is a specific concern of the result I need you to address further in care with us or your primary medical team. Make sure to check your my chart email or félix. documented in this encounterSt. Francis Hospital09-15-2022 History of Present illness Narrative* Karen Bansal APRN.CNP - 07/19/2022 1:00 PM EDT Images from the original note were not included. [facility] Neurology New Patient Headache Evaluation [...] Description Onset: Early 30's. 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 Denies upon wakening. Total headache days per [...] Outside imaging reviewed Lab work obtained from [facility] and reviewed Blood studies 02/07/2022 Hemoglobin [...] Age of Onset Alcohol/Drug Mother Heart Father [place] Cancer Father PANCREATIC CANCER Diabetes Father Diabetes [...] in bed with current PAP mask. Ipratropium [place] (ATROVENT) 0.03 % nasal spray Use 2 Sprays in the nose every 12 hours. metroNIDAZOLE (METROGEL) 0.75 % Topical Gel Apply to affected area twice daily. [place]-3 Fatty Acids (FISH OIL) 500 mg cap Take 1 capsule by mouth once daily. blood sugar diagnostic (BLOOD GLUCOSE TEST) test strip Test blood sugar(s) 1 times daily. Dx: Type 2 DM - Controlled E11.9 Insulin: Yes Lancets lancets Test blood sugar(s) 1 times daily. Dx: Type 2 DM - Controlled E11.9 Insulin: No Kqlnuqlb-Yu-Pps-Fe-FA tab Take 1 tablet by mouth once [...] Finger Abduction (U) 5 Finger Abduction 5 Bookbinding Machine Operator 5 Bookbinding Machine Operator 5 Right Lower Extremity: (of 5) [...] device: independent Romberg's sign is negative. IMPRESSION/PLAN: (G43.729) Intractable chronic migraine without aura and without [...] days a month: [address] [facility] Neurology My impression and recommendations [...] which included preparing to see the patient, xonv-mw-sqzd patient care, completing clinical documentation, obtaining and/or [...] recommendations. Karen Bansal APRN.GABRIELA documented in this encounterSt. Francis Hospital09-15-2022 NoteHNO ID: [id number] Author: Adelina Mason APRN.GABRIELA Service: ? Author Type: Nurse Practitioner Type: Progress Notes Filed: 07/19/2022 10:17 AM Note Text: [facility] [place] General Today's Date: 07/19/2022 Last Visit: 05/24/22 [...] (A) 74 - 99 mg/dL Final Comment: Location:[facility], [address], [place], [place], [facility] The Accu-Chek Inform II glucose meter [...] activity was identified. 07/19/2022 by Adelina Mason APRN.PROJECTION ENGINEER Last Drug screen: Not Applicable Risk Assessment: [...] regional lymphad (more content not included)...[facility]09-15-2022 NoteHNO ID: [id number] Author: Tiana Cifuentes MA Service: ? Author Type: Photography Professor Type: Progress Notes Filed: 07/19/2022 10:17 AM [...] ideas. The patient is not nervous/anxious.[facility]09-15-2022 Miscellaneous Notes* Telephone Encounter - Pankaj [...] year? Yes If yes, When and Where? [place], currently attending (Medical Records Release needs to [...] COVID vaccine.) Pankaj Murillo documented in this encounterSt. Francis Hospital09-06-2022 Miscellaneous Notes* Telephone Encounter - Ingrid Salmon Ma - 07/10/2022 1:55 PM EDT Last office visit: 05/01/22 F/u scheduled: 08/02/22 Ingrid Salmon Ma documented in this encounterSt. Francis Hospital08-30-2022 Miscellaneous Notes* Telephone Encounter - LEVAR [...] and PM. Note, lab work obtained from [facility] and reviewed. Given persistence of headaches [...] Thank you. LEVAR Jasmine documented in this encounterSt. Francis Hospital08-19-2022 Miscellaneous Notes* Telephone Encounter - Dayanna [...] refill: 06/06/2022 20 tablets documented in this encounterSt. Francis Hospital08-04-2022 Miscellaneous Notes* Telephone Encounter - LEVAR Jasmine - 06/07/2022 4:24 PM EDT Orders and APRIL Notes faxed to [facility] to service pts PAP due to compliance reports and data no longerbeing able to be pulled from device. LEVAR Jasmine documented in this encounterSt. Francis Hospital08-04-2022 History of Present illness Narrative* Tara Gillette APRN.PROJECTION ENGINEER - 06/07/2022 3:30 PM EDT Images from the original note were not included. [facility] [place] Follow-up Visit Follow-up note June 07, 2022 [...] BP. Check CMP and CBC due to vermin exterminator med use. 3. LETITIA (obstructive sleep apnea) [...] when sleepy. 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 Usually getting about 7 hours of sleep. [...] in bed with current PAP mask. Ipratropium [place] (ATROVENT) 0.03 % nasal spray Use 2 Sprays in the nose every 12 hours. metroNIDAZOLE (METROGEL) 0.75 % Topical Gel Apply to affected area twice daily. [place]-3 Fatty Acids (FISH OIL) 500 mg cap Take 1 capsule by mouth once daily. blood sugar diagnostic (BLOOD GLUCOSE TEST) test strip Test blood sugar(s) 1 times daily. Dx: Type 2 DM - Controlled E11.9 Insulin: Yes Lancets lancets Test blood sugar(s) 1 times daily. Dx: Type 2 DM - Controlled E11.9 Insulin: No Mbhcfhol-Qf-Xgc-Fe-FA ( FORMULA) ORAL Tab Take 1 tablet [...] and pattern. Labs/studies: Outside labs reviewed from [facility] collected on 06/05/22: CBC N UA [...] and PM. Note, lab work obtained from [facility] and reviewed. Given persistence of headaches [...] which included preparing to see the patient, pkht-cr-cmtw patient care, completing clinical documentation, obtaining and/or reviewing separately obtained history, performing a medically appropriate examination, counseling and educating the pat ient/family/caregiver and ordering medications, tests, or procedures. documented in this encounterJames [place]ille [address]-02-2022 Miscellaneous Notes* Addendum Note - Ivette Grimes MD - 06/05/2022 1:46 PM EDT Addended by: IVETTE GRIMES on: 06/05/2022 01:46 PM Modules accepted: Orders * Telephone Encounter - Ivette Grimes MD - 06/05/2022 1:44 PM EDT Can send lab to [facility] to be done in two weeks documented in this encounterSt. Francis Hospital07-26-2022 Miscellaneous Notes* Telephone Encounter - LEVAR [...] says she had CMP andCBC done at [facility] on 02/09. These are in pt chart. Pt asking if she needs to have labs redrawn or if the ones done in February are sufficient. Please advise. Thank you. LEVAR Jasmine documented in this encounterSt. Francis Hospital07-21-2022 NoteHNO ID: [id number] Author: Adelina Mason APRN.PROJECTION ENGINEER Service: ? Author Type: Nurse Practitioner Type: Progress Notes Filed: 05/24/2022 10:08 PM Note Text: 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 Author Type: Photography Professor Type: Progress Notes Filed: 05/24/2022 10:08 PM [...] ideas. The patient is not nervous/anxious.[facility]07-21-2022 Instructions* Patient Instructions* Adelina Mason APRN.CNP - 05/24/2022 11:52 AM EDT Activity as tolerated Use Ice and/or heat as tolerated as needed documented in this encounterSt. Francis Hospital07-21-2022 History of Present illness Narrative* Adelina Mason APRN.CNP - 05/24/2022 11:28 AM EDT Images from the original note were not included. 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 05/24/2022 by Adelina Mason APRN.PROJECTION ENGINEER Last Drug screen: Not Applicable Risk Assessment: [...] refill. UDS, NAOIC/ORT: up to date Functional Jew: Physical Therapy (Land-based) Additional Studies: None Referrals: [...] decision making from today's date. Adelina Mason APRN.PROJECTION ENGINEER Pain Management [facility] [place] * Gloria Oh MA - 05/24/2022 [...] patient is not nervous/anxious. documented in this encounterSt. Francis Hospital07-08-2022 Miscellaneous Notes* Telephone Encounter - Livia Luna - 05/11/2022 3:17 PM EDT Left brief message asking patient to call back with any questions or concerns about a recent appointment. Livia Luna LPN May 11, 2022 3:18 PM documented in this encounterSt. Francis Hospital07-07-2022 NoteHNO ID: [id number] Author: Mirna Lanza LPN Service: ? Author [...] ideas. The patient is not nervous/anxious.[facility]07-07-[facility] Nurse Note* Mirna Lanza LPN - [...] tablePatient s procedure was performed in an [facility] Procedure room. Pause completed at each [...] Lanza LPN - 05/10/2022 10:03 AM EDT Pharmacy Analyst's Name: Marilynn Are you on a blood [...] to receive one? n documented in this encounterSt. Francis Hospital07-07-2022 Instructions* Patient Instructions* Mirna Lanza LPN [...] emergency care and why. documented in this encounterSt. Francis Hospital07-07-2022 NoteHNO ID: [id number] Author: Elle Sanchez MD Service: ? Author Type: Physician Type: Progress Notes Filed: 05/10/2022 11:04 AM Note Text: [facility] [place] Patient name: Tori Gray Date of : 1980 Today's date: 05/10/2022 Purpose: Ultrasound-guided injection Diagnosis: (M75.02) Adhesive capsulitis of left shoulder (primary encounter diagnosis) (M19.012) Primary osteoarthritis of left shoulder Procedure: Left Shoulder/Chest Suprascapular Nerve Block Prekindergarten Teacher: Elle Sanchez M.D. MStephanyB.A Comments: Allergy Due to the patient's reported history of allergy to Lidocaine, the following medication was substituted: Bupivacaine. Notes from Early Breastfeeding Care Specialist 01/2020 reviewed, she had skin testing to multiple local anesthetics and steroids, without any reaction, but advised that she avoid Lidocaine where possible due to unknown negative predictive value of the tests. Other anesthetics had been used with other procedures that did not have a reaction (eg Bupivacaine). Colony protocol documentation / Pre-Procedure Checklist: ? ID [...] COOKA Pain Management [facility] [place] [facility] 05-10-2022 History of Present illness Narrative* [...] 8:23 AM EDT [facility] [place] [facility] Patient name: Tori Gray Date of : 1980 Today's date: 05/10/2022 Purpose: Ultrasound-guided injection Diagnosis: (M75.02) Adhesive capsulitis of left shoulder (primary encounter diagnosis) (M19.012) Primary osteoarthritis of left shoulder Procedure: Left Shoulder/Chest Suprascapular Nerve Block Prekindergarten Teacher: Elle Sanchez M.D., M.B.A Comments: Allergy Due to the patient's reported history of allergy to Lidocaine, the following medication was substituted: Bupivacaine. Notes from Early Breastfeeding Care Specialist 01/2020 reviewed, she had skin testing to multiple local anesthetics and steroids, without any reaction, but advised that she avoid Lidocaine where possible due to unknown negative predictive value of the tests. Other anesthetics had been usedwith other procedures that did not have a reaction (eg Bupivacaine). Colony protocol documentation / Pre-Procedure Checklist: ID verified [...] SULEIMAN Pain Management [facility] documented in this encounterSt. Francis Hospital07-05-2022 Miscellaneous Notes* Telephone Encounter - Lunba Yoon LPN - 05/08/2022 1:04 PM EDT Sent a [email or web address] message * Telephone Encounter - Ivette Grimes MD - 05/08/2022 12:56 PM EDT I would recommend she follow up and see one of us here. documented in this encounterSt. Francis Hospital06-30-2022 Miscellaneous Notes* Telephone Encounter - Jumana [...] advise. Jumana Harrell LPN documented in this encounterSt. Francis Hospital06-28-2022 Instructions* Patient Instructions* Ivette Grimes MD - 05/01/2022 3:22 PM EDT Change lyrica to every other day for three days then stop. Then start gabapentin one tab at bedtime for three days. Then one tab twice a day for three days Then one tab in am and two at night for three days. Then 2 tabs twice a day. documented in this encounterSt. Francis Hospital06-28-2022 History of Present illness Narrative* Ivette [...] in bed with current PAP mask. Ipratropium [place] (ATROVENT) 0.03 % nasal spray Use 2 [...] 2 DM - Controlled E11.9 Insulin: No Rbwxyurw-Bk-Hab-Fe-FA ( FORMULA) ORAL Tab Take 1 tablet by mouth once daily. [place]-3 Fatty Acids (FISH OIL) 500 mg cap [...] Age of Onset Alcohol/Drug Mother Heart Father [place] Cancer Father PANCREATIC CANCER Diabetes Father Diabetes [...] three months and prn. documented in this encounterSt. Francis Hospital06-16-2022 Miscellaneous Notes* Addendum Note - Ivette Grimes MD - 04/19/2022 2:41 PM EDT Addended by: IVETTE GRIMES on: 04/19/2022 02:41 PM Modules accepted: Orders documented in this encounterSt. Francis Hospital06-13-2022 Miscellaneous Notes* Telephone Encounter - Ivette Mejia Jr., MD - 04/16/2022 6:04 PM EDT Please contact DME ([facility]) to determine if pt qualifies for new PAP device. If so, can order a new AutoBilevel PAP. Thank you, Ivette Mejia MD documented in this encounterSt. Francis Hospital06-13-2022 Miscellaneous Notes* Telephone Encounter - Quinn Lazo LPN - 04/16/2022 10:28 AM EDT Patient phones requesting refills as follows: Pending Prescriptions Disp Refills TIZANIDINE 4 MG TABLET 20 tablet 0 Sig: Take 1 tablet by mouth every 8 hours as needed. CRISTINA: No APRIL 02/28/22 NOV 05/01/22 Please review and advise. Quinn Lazo LPN documented in this encounterSt. Francis Hospital06-06-2022 Instructions* Patient Instructions* Ivette Mejia Jr., [...] Excedrin and Tylenol use. documented in this encounterSt. Francis Hospital06-06-2022 History of Present illness Narrative* Ivette [...] this resolves mask issues. Rx sent to [facility]. During visit, discussed with patient: the physiology [...] in bed with current PAP mask. Ipratropium [place] (ATROVENT) 0.03 % nasal spray Use 2 Sprays in the nose every 12 hours. blood sugar diagnostic (BLOOD GLUCOSE TEST) test strip Test blood sugar(s) 1 times daily. Dx: Type 2 DM - Controlled E11.9 Insulin: Yes Lancets lancets Test blood sugar(s) 1 times daily. Dx: Type 2 DM - Controlled E11.9 Insulin: No Chvhsyco-Xu-Dyu-Fe-FA ( FORMULA) ORAL Tab Take 1 tablet by mouth once daily. metroNIDAZOLE (METROGEL) 0.75 % Topical Gel Apply to affected area twice daily. [place]-3 Fatty Acids (FISH OIL) 500 mg cap Take 1 capsule by mouth once daily. HISTORIES PAST MEDICAL HISTORY Diagnosis Date Acute cholecystitis Cholecystitis Anxiety 06/07/2014 Type 2 diabetes mellitus (HCC) FAMILY HISTORY Problem Relation Age of Onset Alcohol/Drug Mother Heart Father [place] Cancer Father PANCREATIC CANCER Diabetes Father Diabetes [...] BP. Check CMP and CBC due to long-term med use. 3. LETITIA (obstructive sleep apnea) [...] when sleepy. 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 Ivette Mejia MD I spent a total of 40+ minutes on the date of the service which included preparing to see the patient, [id number] patient care, completing clinical documentation, obtaining and/or reviewing separately obtained history, performing a medically appropriate examination, counseling and educating the pa tient/family/caregiver, ordering medications, tests, or procedures, independently interpreting results (not separately reported) and communicating results to the patient/family/caregiver. documented in this encounterSt. Francis Hospital06-02-2022 Miscellaneous Notes* Telephone Encounter - Helen Camacho LPN - 04/05/2022 9:51 AM EDT Last office visit 02/23/2022 documented in this encounterSt. Francis Hospital05-27-2022 Miscellaneous Notes* Telephone Encounter - Milena Rico LPN - 03/30/2022 11:08 AM EDT april-- 02/28/22 Next 05/01/22 Last refill-- 03/16/22 20 with 0 refills Last labs 02/07/22 documented in this encounterSt. Francis Hospital05-26-2022 Miscellaneous Notes* Telephone Encounter - Terese [...] COVID vaccine.) Terese Cruz documented in this encounterSt. Francis Hospital05-26-2022 NoteHNO ID: [id number] Author: Henna Boles MA Service: ? Author Type: Photography Professor Type: Progress Notes Filed: 03/29/2022 11:48 AM [...] ideas. The patient is not nervous/anxious.[facility]05-26-2022 History of Present illness Narrative* Henna [...] not included. [facility] Name: Tori Gray : 1980 [...] 12/21/2021, noted she had an EMG at [facility] which was normal (Jul 2021). MRI shoulder had very minor degenerative changes. Non-surgical management was advised. 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 [...] (Meloxicam) and Lodine (Etodolac) Opioids: Vicodin or [place] (Hydrocodone) and Percocet (Oxycodone) Muscle Relaxants: Zanaflex [...] 45' right Special Tests: Concordant pain with Zac-JiAlexandra's Diagnoses: (M79.18) Myofascial pain (primary encounter diagnosis) [...] Referrals: No additional considerations at present Functional Jew: No changes-continue current regimen Depending on response [...] SULEIMAN Pain Management [facility] [place] [facility] documented in this encounterSt. Francis Hospital05-26-2022 NoteHNO ID: [id number] Author: Elle Sanchez MD Service: ? Author Type: Physician Type: Progress Notes Filed: 03/29/2022 11:48 AM Note Text: [facility] Name: Tori Gray : 1980 [...] 12/21/2021, noted she had an EMG at [facility] which was normal (Jul 2021). MRI shoulder had very minor degenerative changes. Non-surgical management was advised. 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 [...] (Meloxicam) and Lodine (Etodolac) Opioids: Vicodin or [place] (Hydrocodone) and Percocet (Oxycodone) Muscle Relaxants: Zanaflex [...] date, noted (more content not included)...[facility]05-13-2022 Miscellaneous Notes* Telephone Encounter - Helen Camacho LPN - 03/16/2022 11:14 AM EDT Patient phones requesting refills as follows: Pending Prescriptions Disp Refills TIZANIDINE 4 MG TABLET 20 tablet 0 Sig: Take 1 tablet by mouth every 8 hours as needed. CRISTINA: No Please review and advise. Helen Camacho LPN documented in this encounterSt. Francis Hospital05-02-2022 Miscellaneous Notes* Telephone Encounter - LEVAR Jasmine - 03/05/2022 9:36 AM EDT Patient has been identified by name and date of : Yes Patient phones for refill(s): Pending Prescriptions Disp Refills TIZANIDINE 4 MG TABLET 20 tablet 0 Sig: Take 1 tablet by mouth every 8 hours as needed. CRISTINA: No Date of last office visit in primary care: [facility] 02/28/2022 Appointment scheduled for 05/01/2022 Last 2 Encounter Wt Readings: Date: Wt: 02/28/2022 120.7 kg (266 lb) 01/25/2022 119.7 kg (264 lb) Please advise. Thank you. LEVAR Jasmine documented in this encounterSt. Francis Hospital04-27-2022 History of Present illness Narrative* Ivette Grimes MD - 02/28/2022 4:43 PM EDT Patient presents with: ED Follow-up HPI: Patient presents today for office visit for follow up. Nursing Notes: Nirmala Storey LPN 02/28/2022 4:42 PM Signed HOSPITAL/ER FOLLOW UP: Reason for visit: back pain/headache(different pain not her chronic pain) Pain went from lower backup to shoulders. Which facility: [facility] Date of visit: 02/27/22 Diagnosis: back [...] week as well. Happened all day yesterday. [place] different than her classic disc pain. Might [...] in bed with current PAP mask. Ipratropium [place] (ATROVENT) 0.03 % nasal spray Use 2 Sprays in the nose every 12 hours. metroNIDAZOLE (METROGEL) 0.75 % Topical Gel Apply to affected area twice daily. [place]-3 Fatty Acids (FISH OIL) 500 mg cap Take 1 capsule by mouth once daily. blood sugar diagnostic (BLOOD GLUCOSE TEST) test strip Test blood sugar(s) 1 times daily. Dx: Type 2 DM - Controlled E11.9 Insulin: Yes Lancets lancets Test blood sugar(s) 1 times daily. Dx: Type 2 DM - Controlled E11.9 Insulin: No Liyvwlem-At-Dpg-Fe-FA ( FORMULA) ORAL Tab Take 1 tablet [...] Age of Onset Alcohol/Drug Mother Heart Father [place] Cancer Father PANCREATIC CANCER Diabetes Father Diabetes [...] six to eight weeks documented in this encounterSt. Francis Hospital04-27-2022 Nurse Note* Nirmala Storey LPN - 02/28/2022 4:36 PM EDT HOSPITAL/ER FOLLOW UP: Reason for visit: back pain/headache(different pain not her chronic pain) Pain went from lower backup to shoulders. Which facility: [facility] Date of visit: 4/26/22 Diagnosis: back pain, hypertension Testing done: CT scan and labs Treatment given: no new changes Current symptoms: mild headache still and back pain, just feels off Was just feeling off. Aching. Cold chills. Scheduled with Dr Sanchez. documented in this encounterSt. Francis Hospital04-26-2022 Miscellaneous Notes* Telephone Encounter - Quinn Lazo LPN - 02/27/2022 12:44 PM EDT Appt scheduled. Quinn Lazo LPN documented in this encounterSt. Francis Hospital04-22-2022 Miscellaneous Notes* Telephone Encounter - LEVAR [...] Thank you. LEVAR Jasmine documented in this encounterSt. Francis Hospital04-06-2022 Miscellaneous Notes* Telephone Encounter - Nirmala Storey LPN - 02/07/2022 4:09 PM EDT [employer] message sent to patient. * Telephone Encounter - Ivette Grimes MD - 02/07/2022 3:38 PM EDT Let her her know her labs look great. * Telephone Encounter - Nirmala Storey LPN - 02/07/2022 2:33 PM EDT Received lab results from [facility]. Placed on desk for review. documented in this encounterSt. Francis Hospital04-04-2022 Miscellaneous Notes* Telephone Encounter - Tessy Wadsworth Ma - 02/05/2022 12:25 PM EDT Labs faxed within [employer] to update if there are any issues. Tessy Wadsworth Ma documented in this encounterSt. Francis Hospital03-28-2022 Miscellaneous Notes* Telephone Encounter - Darrion Carson [...] shoulder pain. Thank you! documented in this encounterSt. Francis Hospital02-02-2013 History of Past illness Narrative* Problem [...] of this encounter (statuses as of 01/30/2022) [facility] Narrative* Problem [...] of this encounter (statuses as of 02/05/2022) [facility] Narrative* Problem [...] of this encounter (statuses as of 02/07/2022) [facility] Narrative* Problem [...] of this encounter (statuses as of 02/07/2022) [facility] Narrative* Problem [...] of this encounter (statuses as of 02/08/2022) [facility] Narrative* Problem [...] of this encounter (statuses as of 02/23/2022) [facility] Narrative* Problem [...] of this encounter (statuses as of 02/27/2022) [facility] Narrative* Problem [...] of this encounter (statuses as of 02/28/2022) [facility] Narrative* Problem [...] of this encounter (statuses as of 03/05/2022) [facility] Narrative* Problem [...] of this encounter (statuses as of 03/16/2022) [facility] Narrative* Problem [...] Lichenification and lichen simplex chronicus 01/23/2010 DERMATOFIBROMA///BENIGN KALIEY SKIN ARM 03/26/2007 01/23/2010 Contact dermatitis and other eczema, due to unspecified cause 03/26/2007 01/23/2010 Transient hypertension of , antepartum 06/19/2006 07/02/2006 Supervision of normal first 11/09/2005 07/02/2006 documented as of this encounter (statuses as of 03/29/2022) [facility] Narrative* Problem [...] of this encounter (statuses as of 03/29/2022) [facility] Narrative* Problem [...] of this encounter (statuses as of 03/30/2022) [facility] Narrative* Problem [...] of this encounter (statuses as of 04/05/2022) [facility] Narrative* Problem [...] of this encounter (statuses as of 04/09/2022) [facility] Narrative* Problem [...] of this encounter (statuses as of 04/10/2022) [facility] Narrative* Problem [...] of this encounter (statuses as of 04/16/2022) [facility] N[facility]ative* Problem [...] of this encounter (statuses as of 04/16/2022) [facility] N[facility]ative* Problem [...] of this encounter (statuses as of 04/19/2022) [facility] N[facility]ative* Problem [...] of this encounter (statuses as of 05/01/2022) [facility] N[facility]* Problem [...] of this encounter (statuses as of 05/03/2022) [facility] Narrative* Problem [...] of this encounter (statuses as of 05/08/2022) [facility] N[facility]ative* Problem [...] of this encounter (statuses as of 05/10/2022) [facility] N[facility]ative* Problem [...] of this encounter (statuses as of 05/11/2022) [facility] Narrative* Problem Noted Date Resolved Date Routine general medical exam ination at a health care facility 12/06/2012 02/22/2014 Routine general medical exam ination at a [facility] care facility 01/23/2010 12/06/2012 Overview: 01/23/2010, from [...] of this encounter (statuses as of 05/25/2022) [facility] Narrative* Problem [...] of this encounter (statuses as of 05/29/2022) [facility] N[facility]ative* Problem [...] of this encounter (statuses as of 06/05/2022) [facility] N[facility]ative* Problem [...] of this encounter (statuses as of 06/05/2022) [facility] N[facility]* Problem [...] of this encounter (statuses as of 06/07/2022) [facility]* Problem [...] of this encounter (statuses as of 06/07/2022) [facility] Narrative* Problem [...] of this encounter (statuses as of 06/22/2022) [facility] N[facility]ative* Problem [...] of this encounter (statuses as of 07/03/2022) [facility]* Problem [...] of this encounter (statuses as of 07/10/2022) [facility]* Problem [...] of this encounter (statuses as of 07/19/2022) [facility]* Problem [...] of this encounter (statuses as of 07/19/2022) [facility]* Problem [...] of this encounter (statuses as of 07/23/2022) [facility]* Problem [...] of this encounter (statuses as of 08/01/2022) [facility]* Problem [...] of this encounter (statuses as of 08/02/2022) [facility]* Problem [...] of this encounter (statuses as of 08/03/2022) [facility]* Problem [...] of this encounter (statuses as of 08/06/2022) [facility]* Problem [...] of this encounter (statuses as of 08/08/2022) [facility]* Problem [...] of this encounter (statuses as of 08/08/2022) [facility]* Problem [...] of this encounter (statuses as of 08/08/2022) [facility]* Problem [...] of this encounter (statuses as of 08/27/2022) [facility] N[facility]ative* Problem [...] of this encounter (statuses as of 09/03/2022) [facility] complaint+Reason for visit Narrative* Chief Complaint Back [...] dysfunction of thoracic region Disc displacement, lumbar [facility] Work Phone: Consult note Author Ankur Templeton [facility] Note Date/Time June 23, 2025 8: 58am [facility] Medical Records Department [address] [place] [address] Anesthesia Postop Eval I 06/23/25 0857 MR#: [id number] Acct: [id number] Name: TORI GRAY Rep #:[id number] : 1980 45 From: Ankur ROJO PCP: Dr. Ivette Grimes MD Status:REG S DC Y Race: C Location: [place] [address] Anesthesia: Postop Eval I Current Vital Signs [...] CRNA Cosigner Signature: Date CC: ~ Signed [facility] Work Phone: Discharge summary Author Sam Pearl [facility] February 04, 2024 3:49am Note Date/Time February 04, 2024 2:07 am [facility] Medical Records Department [address] [place] [id number] Emergency Department Summary 02/04/24 MR#: [id number] Acct: [id number] Name: TORI GRAY Rep #:[id number] : 1980 43 From: Sam Pearl MD [...] last A1c was in the 5.1 range. [facility] Medical History Abnormal ECG Acute bronchitis [...] %) nasal spray 2 spray intranasal BID /20/20 [History Last Taken 08/03/23] omega-3 fatty acids [...] Physical Exam Const Vital Signs: 02/04/24 01:12 04/02/24 01:14 Temperature 98.1 F Temperature Source Temporal [...] Neuro Narrative: Normal speech. No aphasia. Normal yijkfs-ov-uheb and uzjx-xw-zraf bilaterally. No confusion. 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 She describes visual disturbance being diffuse, [...] (Auto) 71.0 H Lymph % (Auto) 19.8 George % (Auto) 6.6 Eos % (Auto) 0.9 [...] Clarity Clear Urine pH 7.0 Ur Specific Mutual 1.010 Urine Protein 15 H Urine Glucose [...] your Primary Care Provider. Call [facility] ([phone]) or report to the closest Emergency Room. Call 911 if necessary. 02/04/24 0349 <Electronically signed by Sam Pearl MD> Cosigner Signature (if applicable): CC: Dr. Ivette Grimes MD ~ Signed [facility] Work Phone: Evaluation note* Diagnosis Onset Date [...] region acute Disc displacement, lumbar ch ronic [facility] Work Phone: Evaluation note* Diagnosis Upper back pain- Primary Acute midline low back pain without sciatica Type 2 diabetes mellitus with microalbuminuria, with long-term current use of insulin (HCC) LETITIA (obstructive sleep apnea) Obstructive sleep apnea (adult) (pediatric) Lumbar disc disorder Other and unspecified disc disorder of lumbar region Elevated BP without diagnosis of hypertension [facility] Diagnosis Myofascial pain- Primary Mylagia and myositis, unspecified Chronic left shoulder pain Pain in joint, shoulder region Neuropathic pain Neuralgia, neuritis, and radiculitis, unspecified Adhesive capsulitis of left shoulder Adhesive capsulitis of shoulder Primary osteoarthritis of left shoulder Primary localized osteoarthrosis, shoulder region [facility] Diagnosis Migraine without aura and without status migrainosus, not intractable Migraine without aura, without mention of intractable migraine without mention of status migrainosus [facility] Diagnosis Intractable migraine without aura [...] obesity type, unspecified whether serious comorbidity present ([facility]) [facility] Diagnosis Microalbuminuria- Primary Proteinuria Anxiety Anxiety [...] Shortness of breath [facility] Diagnosis Adhesive capsulitis of left shoulder- [...] and myositis, unspecified [facility] Diagnosis Proteinuria, unspecified type- Primary [...] comorbidity present (HCC) [facility] Diagnosis Intractable migraine without aura [...] [facility] Diagnosis Intractable chronic migraine without aura and without status migrainosus- Primary Chronic migraine without aura, with intractable migraine, so stated, without mention of status migrainosus Mixed migraine and muscle contraction headache Migraine, unspecified, without mention of intractable migraine without mention of status migrainosus [facility] Diagnosis Onset Date Resolution Status [...] region acute Disc displacement, lumbar ch ronic [facility] Work Phone: Evaluation note* Diagnosis Type 2 diabetes mellitus with microalbuminuria, with long-term current use of insulin ([facility])- Primary Fatty liver Other chronic nonalcoholic liver disease LETITIA (obstructive sleep apnea) Obstructive sleep apnea (adult) (pediatric) Microalbuminuria Proteinuria Lumbar disc disorder Other and unspecified disc disorder of lumbar region Prolonged Q-T interval on ECG Nonspecific abnormal electrocardiogram (ECG) (EKG) Fatigue, unspecified type [facility] Diagnosis Onset Date Resolution Status [...] dysfunction of thoracic region chronic Obesity chronic [facility] Work Phone: Evaluation note* Diagnosis Onset Date [...] chronic Obesity chronic Type 2 diabetes mellitus [facility] Work Phone: Evaluation note* Diagnosis Malaise- Primary Other malaise and fatigue [facility] Diagnosis Onset Date Resolution Status [...] region acute Disc displacement, lumbar ch ronic [facility] Work Phone: Evaluation note* Diagnosis Lightheadedness- Primary Dizziness and giddiness Essential (primary) hypertension Unspecified essential hypertension Prolonged Q-T interval on ECG Nonspecific abnormal electrocardiogram (ECG) (EKG) Type 2 diabetes mellitus with microalbuminuria, with long-term current use of insulin (HCC) Fatty liver Other chronic nonalcoholic liver disease LETITIA (obstructive sleep apnea) Obstructive sleep apnea (adult) (pediatric) [facility] Diagnosis Anxiety with depression- Primary [facility] Diagnosis Onset Date Resolution Status [...] region acute Disc displacement, lumbar ch ronic [facility] Work Phone: Evaluation note* Diagnosis Onset Date [...] region acute Disc displacement, lumbar ch ronic [facility] Work Phone: Evaluation note* Diagnosis VAHE (generalized anxiety disorder)- Primary Generalized anxiety disorder Major depressive disorder, recurrent episode, moderate (HCC) Major depressive disorder, recurrent episode, moderate [facility] Diagnosis Chronic left shoulder pain- Primary Pain in joint, shoulder region Adhesive capsulitis of left shoulder Adhesive capsulitis of shoulder Neuropathic pain Neuralgia, neuritis, and radiculitis, unspecified Myofascial pain Mylagia and myositis, unspecified [facility] Diagnosis Chronic left shoulder pain- Primary Pain in joint, shoulder region Adhesive capsulitis of left shoulder Adhesive capsulitis of shoulder Chronic left shoulder pain Pain in joint, shoulder region Adhesive capsulitis of left shoulder Adhesive capsulitis of shoulder [facility] Diagnosis Microalbuminuria Proteinuria Type 2 diabetes [...] capsulitis of shoulder [facility] Diagnosis Onset Date Resolution Status [...] region acute Disc displacement, lumbar ch ronic [facility] Work Phone: Evaluation note* Diagnosis Onset Date [...] thoracic region acute [facility] displacement, [facility] Work Phone: Evaluation note* Diagnosis Worst headache of life- Primary Headache Concussion with loss of consciousness, initial encounter Chronic left shoulder pain Pain in joint, shoulder region Adhesive capsulitis of left shoulder Adhesive capsulitis of shoulder [facility] Diagnosis Headache, unspecified headache type- Primary Concussion with loss of consciousness, initial encounter Chronic left shoulder pain Pain in joint, shoulder region Adhesive capsulitis of left shoulder Adhesive capsulitis of shoulder [facility] Diagnosis Post concussion syndrome- Primary [...] capsulitis of shoulder [facility]* Diagnosis Headache, unspecified headache type- Primary Concussion with loss of consciousness, initial encounter Chronic left shoulder pain Pain in joint, shoulder region Adhesive capsulitis of left shoulder Adhesive capsulitis of shoulder [facility] Diagnosis Post concussion syndrome- Primary Postconcussion syndrome Essential (primary) hypertension Unspecified essential hypertension Microalbuminuria Proteinuria Type 2 diabetes mellitus without complication, with long-term current use of insulin ([facility]) Chronic left shoulder pain Pain in joint, shoulder region Adhesive capsulitis of left shoulder Adhesive capsulitis of shoulder [facility] Diagnosis Post concussion syndrome- Primary Postconcussion syndrome Essential (primary) hypertension Unspecified essential hypertension Chronic left shoulder pain Pain in joint, shoulder region Adhesive capsulitis of left shoulder Adhesive capsulitis of shoulder [facility] Diagnosis Post concussive syndrome- Primary Postconcussion syndrome Headache, unspecified headache type [facility] Diagnosis Post concussive syndrome- Primary Postconcussion syndrome Headache, unspecified headache type Injury of neck, subsequent encounter [facility] Diagnosis Onset Date Resolution Status [...] region acute Disc displacement, lumbar ch ronic [facility] Work Phone: Evaluation note* Diagnosis Intractable chronic migraine without aura and without status migrainosus- Primary Chronic migraine without aura, with intractable migraine, so stated, without mention of status migrainosus [facility] Diagnosis Chronic left shoulder pain- [...] neck, subsequent encounter [facility] Diagnosis Soft tissue mass- Primary Disorders of soft tissue, unspecified [facility] Diagnosis VAHE (generalized anxiety disorder)- Primary Generalized anxiety disorder Recurrent major depressive disorder, in full remission (HCC) [facility] Diagnosis Onset Date Resolution Status [...] region acute Disc displacement, lumbar ch ronic [facility] Work Phone: Evaluation note* Diagnosis Anxiety- Primary Anxiety state, unspecified [facility] Diagnosis Soft tissue mass- Primary Disorders of soft tissue, unspecified Post concussive syndrome Postconcussion syndrome Essential (primary) hypertension Unspecified essential hypertension Type 2 diabetes mellitus with microalbuminuria, with long-term current use of insulin (HCC) Headache, unspecified headache type Myalgia Mylagia and myositis, unspecified [facility] Diagnosis Post concussion syndrome- Primary Postconcussion syndrome LETITIA (obstructive sleep apnea) Obstructive sleep apnea (adult) (pediatric) [facility] Diagnosis Encounter for gynecological examination (general) (routine) without abnormal findings- Primary [facility]* Diagnosis Post concussion syndrome- Primary Postconcussion syndrome LETITIA (obstructive sleep apnea) Obstructive sleep apnea (adult) (pediatric) Intractable acute post-traumatic headache Acute post-traumatic headache Altered awareness, transient Transient alteration of awareness [facility] Diagnosis Onset Date Resolution Status [...] of pelvic region acute Disc displacement, lumbar [facility] Work Phone: Evaluation note* Diagnosis Intractable chronic migraine without aura and without status migrainosus- Primary Chronic migraine without aura, with intractable migraine, so stated, without mention of status migrainosus Post concussive syndrome Postconcussion syndrome [facility]* Diagnosis Onset Date Resolution Status [...] region acute Disc displacement, lumbar ch [facility] Work Phone: Evaluation note* Diagnosis Foot pain, right- Primary Pain in limb [facility] this [facility]* Diagnosis Type 2 diabetes mellitus with [...] unspecified headache type [facility]* Diagnosis Memory loss- Primary Attention and concentration deficit Attention or concentration deficit Post concussion syndrome Postconcussion syndrome Intractable migraine without aura and without status migrainosus Migraine without aura, with intractable migraine, so stated, without mention of status migrainosus LETITIA (obstructive sleep apnea) Obstructive sleep apnea (adult) (pediatric) [facility] Diagnosis Plantar fasciitis- Primary Plantar fascial fibromatosis Calcaneal spur of right foot Calcaneal spur [facility] [...] region acute Disc displacement, lumbar ch ronic [facility] Work Phone: Evaluation note* Diagnosis Post concussion syndrome Postconcussion syndrome Intractable acute post-traumatic headache Acute post-traumatic headache Dizziness Dizziness and giddiness Cervicalgia [facility] this [facility] Diagnosis Post concussive syndrome Postconcussion syndrome Headache, unspecified headache type [facility] this [facility] Diagnosis Onset Date Resolution Status [...] region acute Disc displacement, lumbar ch ronic [facility] Work Phone: Evaluation note* Diagnosis Onset Date [...] region acute Disc displacement, lumbar ch ronic [facility] Work Phone: Evaluation note* Diagnosis Essential (primary) hypertension- Primary Unspecified essential hypertension LETITIA (obstructive sleep apnea) Obstructive sleep apnea (adult) (pediatric) Fatty liver Other chronic nonalcoholic liver disease Vertigo Dizziness and giddiness Anxiety Anxiety state, unspecified [facility] Diagnosis Encounter for screening mammogram for malignant neoplasm of breast- Primary Other screening mammogram [facility] Diagnosis Onset Date Resolution Status [...] ronic Obesity chronic LETITIA (obstructive sleep apnea) [facility] Work Phone: Evaluation note* Diagnosis Intractable chronic migraine without aura and without status migrainosus- Primary Chronic migraine without aura, with intractable migraine, so stated, without mention of status migrainosus documented in this encounter [facility]* Diagnosis Onset Date Resolution Status Obesity chronic LETITIA (obstructive sleep apnea) [facility] Work Phone: Evaluation note* Diagnosis Intractable chronic migraine without aura and without status migrainosus- Primary Chronic migraine without aura, with intractable migraine, so stated, without mention of status migrainosus [facility]* Diagnosis Headache, unspecified headache type [facility]* Diagnosis Headache, unspecified headache type [facility]* Diagnosis Left sided sciatica- Primary Sciatica Screening for depression [facility] Diagnosis Acute cough- Primary [facility]* Diagnosis Bronchitis- Primary Bronchitis, not specified as acute or chronic Type 2 diabetes mellitus with microalbuminuria, with long-term current use of insulin (HCC) Wheezing [facility]* Diagnosis Type 2 diabetes mellitus with microalbuminuria, with long-term current use of insulin (HCC)- Primary [facility]* Diagnosis Cough, unspecified type- Primary [facility]* Diagnosis Pain of right heel Pain in limb [facility]* Diagnosis Well adult exam- Primary [...] myelopathy, lumbar region [facility]* Diagnosis Intractable chronic migraine without aura and without status migrainosus- Primary Chronic migraine without aura, with intractable migraine, so stated, without mention of status migrainosus [facility]* Diagnosis Dysuria- Primary Type 2 diabetes mellitus with microalbuminuria, with long-term current use of insulin (HCC) Primary insomnia Persistent disorder of initiating or maintaining sleep [facility] Diagnosis Flank pain- Primary Abdominal pain, unspecified site [facility] Diagnosis Flank pain Abdominal pain, unspecified site [facility]* Diagnosis SOB (shortness of breath) Shortness of breath [facility]* Diagnosis Sinobronchitis- Primary Unspecified sinusitis (chronic) Hypokalemia Hypopotassemia [facility] Diagnosis Sinobronchitis- Primary Unspecified sinusitis (chronic) [facility]* Diagnosis Encounter for screening mammogram for breast cancer [facility] Diagnosis LETITIA (obstructive sleep apnea)- Primary Obstructive sleep apnea (adult) (pediatric) Flank pain Abdominal pain, unspecified site Headache, unspecified headache type Type 2 diabetes mellitus with microalbuminuria, with long-term current use of insulin (HCC) Essential (primary) hypertension Unspecified essential hypertension Chronic left shoulder pain Pain in joint, shoulder region Anxiety Anxiety state, unspecified Screening for depression [facility]* Diagnosis Intractable chronic migraine without aura and without status migrainosus- Primary Chronic migraine without aura, with intractable migraine, so stated, without mention of status migrainosus Chronic left shoulder pain Pain in joint, shoulder region [facility]* Diagnosis Intractable chronic migraine without aura and with status migrainosus- Primary Chronic migraine without aura, with intractable migraine, so stated, with status migrainosus [facility] Diagnosis Spasm of muscle [facility]* Diagnosis Flank pain Abdominal pain, unspecified site [facility]* Diagnosis Well adult exam- Primary [...] for breast cancer [facility] Diagnosis LUQ pain Abdominal pain, left upper quadrant Flank pain Abdominal pain, unspecified site [facility]* Diagnosis Type 2 diabetes mellitus with microalbuminuria, with long-term current use of insulin (HCC) [facility] Electrophysiology Location: None Selected [facility] Work Phone: Hospital Discharge instructions Additional Instructions [...] care physician for further outpatient evaluation and management.[facility] Work Phone: Reason for referral (narrative)* Diagnostic Procedure Only (Routine) - Pending Review Specialty Diagnoses / Procedures Referred By Contac t Referred To Contact XR IMAGING Diagnoses Rib pain Procedures XR RIBS/CHEST 3V AP RIB/OBLS/CXR LEFT RADEX RIBS UNI W/POSTEROANT CH MINIMUM 3 VIEWS Ivette Grimes MD [address] [place] [address] Xr Imaging Referral ID Status Reason Start Date Expiration Date Visits Requested Visits Authorized [id number] Pending Review Auto-Generat ed Referral 05/01/2022 05/31/2023 1 1 [facility] for referral (narrative)* - Pending Review Specialty Diagnoses / Procedures Referred By Contac t Referred To Contact Physical Therapy Diagnoses Chronic left shoulder pain Adhesive capsulitis of left shoulder Primary osteoarthritis of left shoulder Procedures CONSULT TO PHYSICAL THERAPY Adelina Mason, SEARCH DIRECTOR.PROJECTION ENGINEER [address] [place] [address] Referral ID Status Reason Start Date Expiration Date V isits Requested Visits Authorized [id number] Pending Review 05/24/2022 08/22/2022 1 1 [facility] for referral (narrative)* Outpatient Procedure (Routine) - Closed Specialty Diagnoses / Procedures Referred By Contac t Referred To Contact [facility] Diagnoses Prolonged Q-T interval on ECG Procedures ECG COMPLETE ECG ROUTINE ECG W/LEAST 12 LDS W/I&R Ivette Grimes MD [address] [place] [address] [facility] [place] [address] [place] [address] Referral ID Status Reason Start Date Expiration Date V isits Requested Visits Authorized [id number] Closed Auto-Generate d Referral 09/04/2022 09/04/2023 1 1 [facility] for referral (narrative)* Diagnostic Procedure Only (Routine) - Pending Review Specialty Diagnoses / Procedures Referred By Petra meek Referred To Contact US IMAGING Diagnoses Soft tissue mass Procedures US HEAD/NECK SOFT TISSUE OTHER US SOFT TISSUE HEAD & NECK REAL TIME IMGE DOCM Ivette Grimes MD [address] [place] [address] [facility] Referral ID Status Reason Start Date Expiration Date Visits Requested Visits Authorized [id number] Pending Review Auto-Generat ed Referral 01/31/2023 03/01/2024 1 1 [facility] for referral (narrative)* Outpatient Procedure (Routine) - Pending Review Specialty Diagnoses / Procedures Referred By Petra t Referred To Contact [facility] Diagnoses Altered awareness, transient Procedures EPIL EEG ROUTINE ELECTROENCEPHALOGRAM REC COMA/SLEEP ONLY Fatuma Beckford PA-C [address] [place] [address] [facility] [place] [address] [place] [id number] Referral ID Status Reason Start Date Expiration Date Visits Requested Visits Authorized [id number] Pending Review Auto-Generat ed Referral 03/05/2023 03/05/2024 1 1 [facility] for referral (narrative)* Diagnostic Procedure Only (Routine) - Pending Review Specialty Diagnoses / Procedures Referred By Petra t Referred To Contact BR IMAGING Diagnoses Encounter for screening mammogram for malignant neoplasm of breast Procedures FLASH SCREENING SCREENING MAMMOGRAPHY BI 2-VIEW BREAST INC CAD Ivette Grimes MD [address] [place] [address] [facility] [address] [place] [address] Referral ID Status Reason Start Date Expiration Date Visits Requested Visits Authorized [id number] Pending Review Auto-Generat ed Referral 06/06/2023 07/05/2024 1 1 * Transition of Care (Routine) - Ref Not Required Specialty Diagnoses / Procedures Referred By Contac t Referred To Contact Pain Management Diagnoses Chronic left shoulder pain Herniation of lumbar intervertebral disc with radiculopathy Procedures CONSULT TO PAIN MGT Ivette Grimes MD [address] [place] [address] Referral ID Status Reason Start Date Expiration Date Visits Requested Visits Authorized [id number] Ref Not Required PCP Requested Referral 06/06/2023 06/05/[address] [facility] Diagnostic Procedure Only (Routine) - Closed Specialty Diagnoses / Procedures Referred By Contac t Referred To Contact MR IMAGING Diagnoses Post concussion syndrome Intractable acute post-traumatic headache Dizziness Cervicalgia Procedures MRI CERVICAL SPINE WO IVCON MRI SPINAL CANAL CERVICAL W/O CONTRAST MATRL Ivette Mejia Jr., MD [address] [facility] [address] [place] [address] [place] [address] Referral ID Status Reason Start Date Expiration Date V isits Requested Visits Authorized [id number] Closed Auto-Generat ed Referral Patient Cleared - [...] CONTRAST MATERIAL Ivette Mejia Jr., MD [address] [facility] [address] [place] [address] [place] [address] Referral ID Status Reason Start Date Expiration Date V isits Requested Visits Authorized [id number] Closed Auto-Generat ed Referral Patient Cleared - Admin/Chairm an/Director advise to proceed or did not respond 02/26/2023 02/28/2023 1 1 [facility] for referral (narrative)* Diagnostic Procedure Only (Routine) - Pending Review Specialty Diagnoses / Procedures Referred By Contac t Referred To Contact [facility] Diagnoses Encounter for screening mammogram for malignant neoplasm of breast Procedures FLASH SCREENING W JAQUELIN SCREENING DIGITAL BREAST TOMOSYNTHESIS BI SCREENING MAMMOGRAPHY BI 2-VIEW BREAST INC Ivette Rey MD [address] [place] [address] [facility] [address] [place] [address] Referral ID Status Reason Start Date Expiration Date Visits Requested Visits Authorized [id number] Pending Review Auto-Generat ed Referral 12/09/2023 01/07/2025 1 1 [facility] for referral (narrative)* Diagnostic Procedure Only (Urgent) - Closed Specialty Diagnoses / Procedures Referred By Petra meek Referred To Contact XR IMAGING Diagnoses Pain of right heel Procedures XR FOOT GENERAL 3V AP/LAT/OBL RIGHT RADEX FOOT COMPLETE MINIMUM 3 VIEWS Nicole Anton PA-C [address] [place] [address] [place] [id number] Referral ID Status Reason Start Date Expiration Date V isits Requested Visits Authorized [id number] Closed Auto-Generate d Referral 05/28/2023 06/26/2024 1 1 [facility] for referral (narrative)No reason for referral information [facility]: Reason for visit Narrative* Diagnostic Procedure Only (Routine) - Closed Specialty Diagnoses / Procedures Referred By Vladimirac t Referred To Contact MR IMAGING Diagnoses Post concussion syndrome Intractable acute post-traumatic headache Dizziness Cervicalgia Procedures MRI CERVICAL SPINE WO IVCON MRI SPINAL CANAL CERVICAL W/O CONTRAST Ivette Ansari Jr., MD [address] [facility] [address] [place] [address] [place] [address] Referral ID Status Reason Start Date Expiration Date V isits Requested Visits Authorized [id number] Closed Auto-Generat ed Referral Patient Cleared - Admin/Chairm an/Director advise to proceed or did not respond 02/26/2023 02/28/2023 1 1 [facility] for visit Narrative* Diagnostic Procedure Only (Urgent) - Closed Specialty Diagnoses / Procedures Referred By Contac t Referred To Contact XR IMAGING Diagnoses Pain of right heel Procedures XR FOOT GENERAL 3V AP/LAT/OBL RIGHT RADEX FOOT COMPLETE MINIMUM 3 VIEWS Nicole Anton, PAReneeC [address] [place] [address] [place] [id number] Referral ID Status Reason Start Date Expiration Date V isits Requested Visits Authorized [id number] Closed Auto-Generate d Referral 05/28/2023 06/26/[address] [facility] Family History No Family History Records Found [...] Will No November 21 3:58pm Power of Clinical Project Coordinator No November 21, 2021 3:58pm Advance Directive Response Recorded Date/ Time Advance Directives No November 21, 2021 3:58pm Living Will No February 27, 2022 10:01am Power of Clinical Project Coordinator No February 27 10:01am Advance Directive Response Recorded Date/ Time Advance Directives No November 21, 2021 2:58pm Living Will No February 27, 2022 9:01am Power of Clinical Project Coordinator No February 27 9:01am Advance Directive Response Recorded Date/ Time Advance Directives No November 21, 2021 2:58pm Living Will No November 24 11:49am Power of Clinical Project Coordinator No November 24, 2022 11:49am Advance Directive Response Recorded Date/ Time Advance Directives No November 21, 2021 2:58pm Living Will No November 27 3:43pm Power of Clinical Project Coordinator No November 27, 2022 3:43pm Advance Directive Response Recorded Date/ Time Advance Directives No November 21, 2021 3:58pm Living Will No December 03 7:35pm Power of Clinical Project Coordinator No December 03, 2022 7:35pm Advance Directive Response Recorded Date/ Time Advance Directives No November 21, 2021 3:58pm Living Will No May 20, 2023 9:41pm Power of Clinical Project Coordinator No May 20 9:41pm Advance Directive Response Recorded Date/ Time Advance Directives No November 21, 2021 3:58pm Living Will No August 05 9:54am Power of Clinical Project Coordinator No August 05 023 9:54am Advance Directive Response Recorded Date/ Time Advance Directives No November 21, 2021 2:58pm Living Will No August 05 12:04pm Power of Clinical Project Coordinator No August 05 023 12:04pm Advance Directive Response Recorded Date/ Time Advance Directives No November 21, 2021 2:58pm Living Will No October 27, 2 023 4:06pm Power of Clinical Project Coordinator No October 27, 2023 4:06pm Advance Directive Response Recorded Date/ Time Advance Directives No November 21, 2021 3:58pm Living Will No February 04, 2024 1:16am Power of Clinical Project Coordinator No February 03 1:16am Advance Directive Response Recorded Date/ Time Advance Directives No October 07, 2024 8:43am Living Will No October 16, 2 024 10:17pm Do you have a Healthcare Power of Clinical Project Coordinator? No October 16, 2024 10:17pm Living Will No November 11 7:01am Do you have a Healthcare Power of Clinical Project Coordinator? No November 11, 2024 7:01am Advance Directive Response Recorded Date/ Time Advance Directives No March 09, 2025 9:20am Advance Directive Response Recorded Date/ Time Advance Directives No March 09, 2025 9:20am Do you have a Healthcare Power of Clinical Project Coordinator? No June 10, 2025 9:08am Medications Administered [...] migrainosus Procedures CONSULT TO HEADACHE CLINIC OFFICE/OUTPATIENT [facility] 60-74 MINUTES Tara Gillette APRN.PROJECTION ENGINEER [address] [place] [address] Referral ID Status Reason Start Date Expiration Date Visits Requested Visits Authorized [id number] Authorized PCP Requested Referral 06/07/2022 06/07/2023 1 1 Specialty Diagnoses / Procedures Referred By Petra meek Referred To Contact MR IMAGING Diagnoses Post concussion syndrome Intractable acute post-traumatic headache Dizziness Cervicalgia Procedures MRI CERVICAL SPINE WO IVCON MRI SPINAL CANAL CERVICAL W/O CONTRAST Ivette Ansari Jr., MD [address] [facility] [address] [place] [address] Mr Imaging Referral ID Status Reason Start Date Expiration Date Visits Requested Visits Authorized [id number] Pending Review Auto-Generat ed Referral 12/07/2022 01/06/2024 1 1 Specialty Diagnoses / Procedures Referred By Contac t Referred To Contact MR IMAGING Diagnoses Post concussion syndrome Intractable acute post-traumatic headache Dizziness Cervicalgia Procedures MRI BRAIN WO IVCON MRI BRAIN BRAIN STEM W/O CONTRAST MATERIAL Ivette Mejia Jr., MD [address] [address] Mr Imaging Referral ID Status Reason Start Date Expiration Date Visits Requested Visits Authorized [id number] Pending Review Auto-Generat ed Referral 12/07/2022 01/06/2024 1 1 Specialty Diagnoses / Procedures Referred By Contac t Referred To Contact CT IMAGING Diagnoses Soft tissue mass Procedures CT NECK SOFT TISSUE W IVCON CT SOFT TISSUE NECK W/CONTRAST MATERIAL Ivette Grimes MD [address] [place] [address] Ct Imaging Referral ID Status Reason Start Date Expiration Date Visits Requested Visits Authorized [id number] Pending Review Auto-Generat ed Referral 02/28/2023 03/29/2024 1 1 Specialty Diagnoses / Procedures Referred By Contac t Referred To Contact [facility] Diagnoses Post concussive syndrome Procedures CONSULT TO SPEECH THERAPY OFFICE/OUTPATIENT [facility] 60-74 MINUTES Fatuma Beckford PA-C [address] [place] [address] [facility] [place] [address] [place] [address] Referral ID Status Reason Start Date Expiration Date Visits Requested Visits Authorized [id number] Pending Review Auto-Generat ed Referral 05/17/2023 05/16/2024 1 1 Specialty Diagnoses / Procedures Referred By Contac t Referred To Contact Fatuma Beckford PA-C [address] [place] [address] Referral ID Status Reason Start Date Expiration Date Visits Re quested Visits Authorized [id number] Closed 1 1 Specialty Diagnoses / Procedures Referred By Contac t Referred To Contact Diagnoses Type 2 diabetes mellitus with microalbuminuria, with long-term current use of insulin ([facility]) Ivette Grimes MD [address] [place] [address] Referral ID Status Reason Start Date Expiration Date Visits Re quested Visits Authorized [id number] Closed 1 1 Chief Complaint and Reason [...] or prosecute any alcohol or drug abuse patient.[facility] the event this information is protected by the Federal Confidentiality of Alcohol and Drug Abuse Patient Records regulations: The Federal rules restrict any use of the information to criminally investigate or prosecute any alcohol or drug abuse patient.[facility] HospitalIn the event this information is protected by the Federal Confidentiality of Alcohol and Drug Abuse Patient Records regulations: The Federal rules restrict any use of the information to criminally investigate or prosecute any alcohol or drug abuse patient.[facility] HospitalIn the event this information is protected by the Federal Confidentiality of Alcohol and Drug Abuse Patient Records regulations: The Federal rules restrict any use of the information to criminally investigate or prosecute any alcohol or drug abuse patient.[facility] HospitalIn the event this information is protected by the Federal Confidentiality of Alcohol and Drug Abuse Patient Records regulations: The Federal rules restrict any use of the information to criminally investigate or prosecute any alcohol or drug abuse patient.[facility] HospitalIn the event this information is protected by the Federal Confidentiality of Alcohol and Drug Abuse Patient Records regulations: The Federal rules restrict any use of the information to criminally investigate or prosecute any alcohol or drug abuse patient.[facility] HospitalIn the event this information is protected by the Federal Confidentiality of Alcohol and Drug Abuse Patient Records regulations: The Federal rules restrict any use of the information to criminally investigate or prosecute any alcohol or drug abuse patient.[facility] HospitalIn the event this information is protected by the Federal Confidentiality of Alcohol and Drug Abuse Patient Records regulations: The Federal rules restrict any use of the information to criminally investigate or prosecute any alcohol or drug abuse patient.[facility] HospitalIn the event this information is protected by the Federal Confidentiality of Alcohol and Drug Abuse Patient Records regulations: The Federal rules restrict any use of the information to criminally investigate or prosecute any alcohol or drug abuse patient.[facility] HospitalIn the event this information is protected by the Federal Confidentiality of Alcohol and Drug Abuse Patient Records regulations: The Federal rules restrict any use of the information to criminally investigate or prosecute any alcohol or drug abuse patient.[facility] HospitalIn the event this information is protected by the Federal Confidentiality of Alcohol and Drug Abuse Patient Records regulations: The Federal rules restrict any use of the information to criminally investigate or prosecute any alcohol or drug abuse patient.[facility] HospitalIn the event this information is protected by the Federal Confidentiality of Alcohol and Drug Abuse Patient Records regulations: The Federal rules restrict any use of the information to criminally investigate or prosecute any alcohol or drug abuse patient.[facility] HospitalIn the event this information is protected by the Federal Confidentiality of Alcohol and Drug Abuse Patient Records regulations: The Federal rules restrict any use of the information to criminally investigate or prosecute any alcohol or drug abuse patient.[facility] HospitalIn the event this information is protected by the Federal Confidentiality of Alcohol and Drug Abuse Patient Records regulations: The Federal rules restrict any use of the information to criminally investigate or prosecute any alcohol or drug abuse patient.[facility] HospitalIn the event this information is protected by the Federal Confidentiality of Alcohol and Drug Abuse Patient Records regulations: The Federal rules restrict any use of the information to criminally investigate or prosecute any alcohol or drug abuse patient.[facility] HospitalIn the event this information is protected by the Federal Confidentiality of Alcohol and Drug Abuse Patient Records regulations: The Federal rules restrict any use of the information to criminally investigate or prosecute any alcohol or drug abuse patient.[facility] HospitalIn the event this information is protected by the Federal Confidentiality of Alcohol and Drug Abuse Patient Records regulations: The Federal rules restrict any use of the information to criminally investigate or prosecute any alcohol or drug abuse patient.[facility] HospitalIn the event this information is protected by the Federal Confidentiality of Alcohol and Drug Abuse Patient Records regulations: The Federal rules restrict any use of the information to criminally investigate or prosecute any alcohol or drug abuse patient.[facility] HospitalIn the event this information is protected by the Federal Confidentiality of Alcohol and Drug Abuse Patient Records regulations: The Federal rules restrict any use of the information to criminally investigate or prosecute any alcohol or drug abuse patient.[facility] HospitalIn the event this information is protected by the Federal Confidentiality of Alcohol and Drug Abuse Patient Records regulations: The Federal rules restrict any use of the information to criminally investigate or prosecute any alcohol or drug abuse patient.[facility] HospitalIn the event this information is protected by the Federal Confidentiality of Alcohol and Drug Abuse Patient Records regulations: The Federal rules restrict any use of the information to criminally investigate or prosecute any alcohol or drug abuse patient.[facility] HospitalIn the event this information is protected by the Federal Confidentiality of Alcohol and Drug Abuse Patient Records regulations: The Federal rules restrict any use of the information to criminally investigate or prosecute any alcohol or drug abuse patient.[facility] HospitalIn the event this information is protected by the Federal Confidentiality of Alcohol and Drug Abuse Patient Records regulations: The Federal rules restrict any use of the information to criminally investigate or prosecute any alcohol or drug abuse patient.[facility] HospitalIn the event this information is protected by the Federal Confidentiality of Alcohol and Drug Abuse Patient Records regulations: The Federal rules restrict any use of the information to criminally investigate or prosecute any alcohol or drug abuse patient.[facility] HospitalIn the event this information is protected by the Federal Confidentiality of Alcohol and Drug Abuse Patient Records regulations: The Federal rules restrict any use of the information to criminally investigate or prosecute any alcohol or drug abuse patient.[facility] HospitalIn the event this information is protected by the Federal Confidentiality of Alcohol and Drug Abuse Patient Records regulations: The Federal rules restrict any use of the information to criminally investigate or prosecute any alcohol or drug abuse patient.[facility] HospitalIn the event this information is protected by the Federal Confidentiality of Alcohol and Drug Abuse Patient Records regulations: The Federal rules restrict any use of the information to criminally investigate or prosecute any alcohol or drug abuse patient.[facility] HospitalIn the event this information is protected by the Federal Confidentiality of Alcohol and Drug Abuse Patient Records regulations: The Federal rules restrict any use of the information to criminally investigate or prosecute any alcohol or drug abuse patient.[facility] HospitalIn the event this information is protected by the Federal Confidentiality of Alcohol and Drug Abuse Patient Records regulations: The Federal rules restrict any use of the information to criminally investigate or prosecute any alcohol or drug abuse patient.[facility] HospitalIn the event this information is protected by the Federal Confidentiality of Alcohol and Drug Abuse Patient Records regulations: The Federal rules restrict any use of the information to criminally investigate or prosecute any alcohol or drug abuse patient.[facility] HospitalIn the event this information is protected by the Federal Confidentiality of Alcohol and Drug Abuse Patient Records regulations: The Federal rules restrict any use of the information to criminally investigate or prosecute any alcohol or drug abuse patient.[facility] HospitalIn the event this information is protected by the Federal Confidentiality of Alcohol and Drug Abuse Patient Records regulations: The Federal rules restrict any use of the information to criminally investigate or prosecute any alcohol or drug abuse patient.[facility] HospitalIn the event this information is protected by the Federal Confidentiality of Alcohol and Drug Abuse Patient Records regulations: The Federal rules restrict any use of the information to criminally investigate or prosecute any alcohol or drug abuse patient.[facility] HospitalIn the event this information is protected by the Federal Confidentiality of Alcohol and Drug Abuse Patient Records regulations: The Federal rules restrict any use of the information to criminally investigate or prosecute any alcohol or drug abuse patient.[facility] HospitalIn the event this information is protected by the Federal Confidentiality of Alcohol and Drug Abuse Patient Records regulations: The Federal rules restrict any use of the information to criminally investigate or prosecute any alcohol or drug abuse patient.[facility] HospitalIn the event this information is protected by the Federal Confidentiality of Alcohol and Drug Abuse Patient Records regulations: The Federal rules restrict any use of the information to criminally investigate or prosecute any alcohol or drug abuse patient.[facility] HospitalIn the event this information is protected by the Federal Confidentiality of Alcohol and Drug Abuse Patient Records regulations: The Federal rules restrict any use of the information to criminally investigate or prosecute any alcohol or drug abuse patient.[facility] HospitalIn the event this information is protected by the Federal Confidentiality of Alcohol and Drug Abuse Patient Records regulations: The Federal rules restrict any use of the information to criminally investigate or prosecute any alcohol or drug abuse patient.[facility] HospitalIn the event this information is protected by the Federal Confidentiality of Alcohol and Drug Abuse Patient Records regulations: The Federal rules restrict any use of the information to criminally investigate or prosecute any alcohol or drug abuse patient.[facility] HospitalIn the event this information is protected by the Federal Confidentiality of Alcohol and Drug Abuse Patient Records regulations: The Federal rules restrict any use of the information to criminally investigate or prosecute any alcohol or drug abuse patient.[facility] HospitalIn the event this information is protected by the Federal Confidentiality of Alcohol and Drug Abuse Patient Records regulations: The Federal rules restrict any use of the information to criminally investigate or prosecute any alcohol or drug abuse patient.[facility] HospitalIn the event this information is protected by the Federal Confidentiality of Alcohol and Drug Abuse Patient Records regulations: The Federal rules restrict any use of the information to criminally investigate or prosecute any alcohol or drug abuse patient.[facility] HospitalIn the event this information is protected by the Federal Confidentiality of Alcohol and Drug Abuse Patient Records regulations: The Federal rules restrict any use of the information to criminally investigate or prosecute any alcohol or drug abuse patient.[facility] HospitalIn the event this information is protected by the Federal Confidentiality of Alcohol and Drug Abuse Patient Records regulations: The Federal rules restrict any use of the information to criminally investigate or prosecute any alcohol or drug abuse patient.[facility] HospitalIn the event this information is protected by the Federal Confidentiality of Alcohol and Drug Abuse Patient Records regulations: The Federal rules restrict any use of the information to criminally investigate or prosecute any alcohol or drug abuse patient.[facility] HospitalIn the event this information is protected by the Federal Confidentiality of Alcohol and Drug Abuse Patient Records regulations: The Federal rules restrict any use of the information to criminally investigate or prosecute any alcohol or drug abuse patient.[facility] HospitalIn the event this information is protected by the Federal Confidentiality of Alcohol and Drug Abuse Patient Records regulations: The Federal rules restrict any use of the information to criminally investigate or prosecute any alcohol or drug abuse patient.[facility] HospitalIn the event this information is protected by the Federal Confidentiality of Alcohol and Drug Abuse Patient Records regulations: The Federal rules restrict any use of the information to criminally investigate or prosecute any alcohol or drug abuse patient.[facility] HospitalIn the event this information is protected by the Federal Confidentiality of Alcohol and Drug Abuse Patient Records regulations: The Federal rules restrict any use of the information to criminally investigate or prosecute any alcohol or drug abuse patient.[facility] HospitalIn the event this information is protected by the Federal Confidentiality of Alcohol and Drug Abuse Patient Records regulations: The Federal rules restrict any use of the information to criminally investigate or prosecute any alcohol or drug abuse patient.[facility] HospitalIn the event this information is protected by the Federal Confidentiality of Alcohol and Drug Abuse Patient Records regulations: The Federal rules restrict any use of the information to criminally investigate or prosecute any alcohol or drug abuse patient.[facility] HospitalIn the event this information is protected by the Federal Confidentiality of Alcohol and Drug Abuse Patient Records regulations: The Federal rules restrict any use of the information to criminally investigate or prosecute any alcohol or drug abuse patient.[facility] HospitalIn the event this information is protected by the Federal Confidentiality of Alcohol and Drug Abuse Patient Records regulations: The Federal rules restrict any use of the information to criminally investigate or prosecute any alcohol or drug abuse patient.[facility] HospitalIn the event this information is protected by the Federal Confidentiality of Alcohol and Drug Abuse Patient Records regulations: The Federal rules restrict any use of the information to criminally investigate or prosecute any alcohol or drug abuse patient.[facility] HospitalIn the event this information is protected by the Federal Confidentiality of Alcohol and Drug Abuse Patient Records regulations: The Federal rules restrict any use of the information to criminally investigate or prosecute any alcohol or drug abuse patient.[facility] HospitalIn the event this information is protected by the Federal Confidentiality of Alcohol and Drug Abuse Patient Records regulations: The Federal rules restrict any use of the information to criminally investigate or prosecute any alcohol or drug abuse patient.[facility] HospitalIn the event this information is protected by the Federal Confidentiality of Alcohol and Drug Abuse Patient Records regulations: The Federal rules restrict any use of the information to criminally investigate or prosecute any alcohol or drug abuse patient.[facility] HospitalIn the event this information is protected by the Federal Confidentiality of Alcohol and Drug Abuse Patient Records regulations: The Federal rules restrict any use of the information to criminally investigate or prosecute any alcohol or drug abuse patient.[facility] HospitalIn the event this information is protected by the Federal Confidentiality of Alcohol and Drug Abuse Patient Records regulations: The Federal rules restrict any use of the information to criminally investigate or prosecute any alcohol or drug abuse patient.[facility] HospitalIn the event this information is protected by the Federal Confidentiality of Alcohol and Drug Abuse Patient Records regulations: The Federal rules restrict any use of the information to criminally investigate or prosecute any alcohol or drug abuse patient.[facility] HospitalIn the event this information is protected by the Federal Confidentiality of Alcohol and Drug Abuse Patient Records regulations: The Federal rules restrict any use of the information to criminally investigate or prosecute any alcohol or drug abuse patient.[facility] HospitalIn the event this information is protected by the Federal Confidentiality of Alcohol and Drug Abuse Patient Records regulations: The Federal rules restrict any use of the information to criminally investigate or prosecute any alcohol or drug abuse patient.[facility] HospitalIn the event this information is protected by the Federal Confidentiality of Alcohol and Drug Abuse Patient Records regulations: The Federal rules restrict any use of the information to criminally investigate or prosecute any alcohol or drug abuse patient.[facility] HospitalIn the event this information is protected by the Federal Confidentiality of Alcohol and Drug Abuse Patient Records regulations: The Federal rules restrict any use of the information to criminally investigate or prosecute any alcohol or drug abuse patient.[facility] HospitalIn the event this information is protected by the Federal Confidentiality of Alcohol and Drug Abuse Patient Records regulations: The Federal rules restrict any use of the information to criminally investigate or prosecute any alcohol or drug abuse patient.[facility] HospitalIn the event this information is protected by the Federal Confidentiality of Alcohol and Drug Abuse Patient Records regulations: The Federal rules restrict any use of the information to criminally investigate or prosecute any alcohol or drug abuse patient.[facility] HospitalIn the event this information is protected by the Federal Confidentiality of Alcohol and Drug Abuse Patient Records regulations: The Federal rules restrict any use of the information to criminally investigate or prosecute any alcohol or drug abuse patient.[facility] HospitalIn the event this information is protected by the Federal Confidentiality of Alcohol and Drug Abuse Patient Records regulations: The Federal rules restrict any use of the information to criminally investigate or prosecute any alcohol or drug abuse patient.[facility] HospitalIn the event this information is protected by the Federal Confidentiality of Alcohol and Drug Abuse Patient Records regulations: The Federal rules restrict any use of the information to criminally investigate or prosecute any alcohol or drug abuse patient.[facility] HospitalIn the event this information is protected by the Federal Confidentiality of Alcohol and Drug Abuse Patient Records regulations: The Federal rules restrict any use of the information to criminally investigate or prosecute any alcohol or drug abuse patient.[facility] HospitalIn the event this information is protected by the Federal Confidentiality of Alcohol and Drug Abuse Patient Records regulations: The Federal rules restrict any use of the information to criminally investigate or prosecute any alcohol or drug abuse patient.[facility] HospitalIn the event this information is protected by the Federal Confidentiality of Alcohol and Drug Abuse Patient Records regulations: The Federal rules restrict any use of the information to criminally investigate or prosecute any alcohol or drug abuse patient.[facility] HospitalIn the event this information is protected by the Federal Confidentiality of Alcohol and Drug Abuse Patient Records regulations: The Federal rules restrict any use of the information to criminally investigate or prosecute any alcohol or drug abuse patient.[facility] HospitalIn the event this information is protected by the Federal Confidentiality of Alcohol and Drug Abuse Patient Records regulations: The Federal rules restrict any use of the information to criminally investigate or prosecute any alcohol or drug abuse patient.[facility] HospitalIn the event this information is protected by the Federal Confidentiality of Alcohol and Drug Abuse Patient Records regulations: The Federal rules restrict any use of the information to criminally investigate or prosecute any alcohol or drug abuse patient.[facility] HospitalIn the event this information is protected by the Federal Confidentiality of Alcohol and Drug Abuse Patient Records regulations: The Federal rules restrict any use of the information to criminally investigate or prosecute any alcohol or drug abuse patient.[facility] HospitalIn the event this information is protected by the Federal Confidentiality of Alcohol and Drug Abuse Patient Records regulations: The Federal rules restrict any use of the information to criminally investigate or prosecute any alcohol or drug abuse patient.[facility] HospitalIn the event this information is protected by the Federal Confidentiality of Alcohol and Drug Abuse Patient Records regulations: The Federal rules restrict any use of the information to criminally investigate or prosecute any alcohol or drug abuse patient.[facility] HospitalIn the event this information is protected by the Federal Confidentiality of Alcohol and Drug Abuse Patient Records regulations: The Federal rules restrict any use of the information to criminally investigate or prosecute any alcohol or drug abuse patient.[facility] HospitalIn the event this information is protected by the Federal Confidentiality of Alcohol and Drug Abuse Patient Records regulations: The Federal rules restrict any use of the information to criminally investigate or prosecute any alcohol or drug abuse patient.[facility] HospitalIn the event this information is protected by the Federal Confidentiality of Alcohol and Drug Abuse Patient Records regulations: The Federal rules restrict any use of the information to criminally investigate or prosecute any alcohol or drug abuse patient.[facility] HospitalIn the event this information is protected by the Federal Confidentiality of Alcohol and Drug Abuse Patient Records regulations: The Federal rules restrict any use of the information to criminally investigate or prosecute any alcohol or drug abuse patient.[facility] HospitalIn the event this information is protected by the Federal Confidentiality of Alcohol and Drug Abuse Patient Records regulations: The Federal rules restrict any use of the information to criminally investigate or prosecute any alcohol or drug abuse patient.[facility] HospitalIn the event this information is protected by the Federal Confidentiality of Alcohol and Drug Abuse Patient Records regulations: The Federal rules restrict any use of the information to criminally investigate or prosecute any alcohol or drug abuse patient.[facility] HospitalIn the event this information is protected by the Federal Confidentiality of Alcohol and Drug Abuse Patient Records regulations: The Federal rules restrict any use of the information to criminally investigate or prosecute any alcohol or drug abuse patient.[facility] HospitalIn the event this information is protected by the Federal Confidentiality of Alcohol and Drug Abuse Patient Records regulations: The Federal rules restrict any use of the information to criminally investigate or prosecute any alcohol or drug abuse patient.[facility] HospitalIn the event this information is protected by the Federal Confidentiality of Alcohol and Drug Abuse Patient Records regulations: The Federal rules restrict any use of the information to criminally investigate or prosecute any alcohol or drug abuse patient.[facility] HospitalIn the event this information is protected by the Federal Confidentiality of Alcohol and Drug Abuse Patient Records regulations: The Federal rules restrict any use of the information to criminally investigate or prosecute any alcohol or drug abuse patient.[facility] HospitalIn the event this information is protected by the Federal Confidentiality of Alcohol and Drug Abuse Patient Records regulations: The Federal rules restrict any use of the information to criminally investigate or prosecute any alcohol or drug abuse patient.[facility] HospitalIn the event this information is protected by the Federal Confidentiality of Alcohol and Drug Abuse Patient Records regulations: The Federal rules restrict any use of the information to criminally investigate or prosecute any alcohol or drug abuse patient.[facility] HospitalIn the event this information is protected by the Federal Confidentiality of Alcohol and Drug Abuse Patient Records regulations: The Federal rules restrict any use of the information to criminally investigate or prosecute any alcohol or drug abuse patient.[facility] HospitalIn the event this information is protected by the Federal Confidentiality of Alcohol and Drug Abuse Patient Records regulations: The Federal rules restrict any use of the information to criminally investigate or prosecute any alcohol or drug abuse patient.[facility] HospitalIn the event this information is protected by the Federal Confidentiality of Alcohol and Drug Abuse Patient Records regulations: The Federal rules restrict any use of the information to criminally investigate or prosecute any alcohol or drug abuse patient.[facility] HospitalIn the event this information is protected by the Federal Confidentiality of Alcohol and Drug Abuse Patient Records regulations: The Federal rules restrict any use of the information to criminally investigate or prosecute any alcohol or drug abuse patient.[facility] HospitalIn the event this information is protected by the Federal Confidentiality of Alcohol and Drug Abuse Patient Records regulations: The Federal rules restrict any use of the information to criminally investigate or prosecute any alcohol or drug abuse patient.[facility] HospitalIn the event this information is protected by the Federal Confidentiality of Alcohol and Drug Abuse Patient Records regulations: The Federal rules restrict any use of the information to criminally investigate or prosecute any alcohol or drug abuse patient.[facility] HospitalIn the event this information is protected by the Federal Confidentiality of Alcohol and Drug Abuse Patient Records regulations: The Federal rules restrict any use of the information to criminally investigate or prosecute any alcohol or drug abuse patient.[facility] HospitalIn the event this information is protected by the Federal Confidentiality of Alcohol and Drug Abuse Patient Records regulations: The Federal rules restrict any use of the information to criminally investigate or prosecute any alcohol or drug abuse patient.[facility] HospitalIn the event this information is protected by the Federal Confidentiality of Alcohol and Drug Abuse Patient Records regulations: The Federal rules restrict any use of the information to criminally investigate or prosecute any alcohol or drug abuse patient.[facility] HospitalIn the event this information is protected by the Federal Confidentiality of Alcohol and Drug Abuse Patient Records regulations: The Federal rules restrict any use of the information to criminally investigate or prosecute any alcohol or drug abuse patient.[facility] HospitalIn the event this information is protected by the Federal Confidentiality of Alcohol and Drug Abuse Patient Records regulations: The Federal rules restrict any use of the information to criminally investigate or prosecute any alcohol or drug abuse patient.[facility] HospitalIn the event this information is protected by the Federal Confidentiality of Alcohol and Drug Abuse Patient Records regulations: The Federal rules restrict any use of the information to criminally investigate or prosecute any alcohol or drug abuse patient.[facility] HospitalIn the event this information is protected by the Federal Confidentiality of Alcohol and Drug Abuse Patient Records regulations: The Federal rules restrict any use of the information to criminally investigate or prosecute any alcohol or drug abuse patient.[facility] HospitalIn the event this information is protected by the Federal Confidentiality of Alcohol and Drug Abuse Patient Records regulations: The Federal rules restrict any use of the information to criminally investigate or prosecute any alcohol or drug abuse patient.[facility] HospitalIn the event this information is protected by the Federal Confidentiality of Alcohol and Drug Abuse Patient Records regulations: The Federal rules restrict any use of the information to criminally investigate or prosecute any alcohol or drug abuse patient.[facility] HospitalIn the event this information is protected by the Federal Confidentiality of Alcohol and Drug Abuse Patient Records regulations: The Federal rules restrict any use of the information to criminally investigate or prosecute any alcohol or drug abuse patient.[facility] HospitalIn the event this information is protected by the Federal Confidentiality of Alcohol and Drug Abuse Patient Records regulations: The Federal rules restrict any use of the information to criminally investigate or prosecute any alcohol or drug abuse patient.[facility] HospitalIn the event this information is protected by the Federal Confidentiality of Alcohol and Drug Abuse Patient Records regulations: The Federal rules restrict any use of the information to criminally investigate or prosecute any alcohol or drug abuse patient.[facility] HospitalIn the event this information is protected by the Federal Confidentiality of Alcohol and Drug Abuse Patient Records regulations: The Federal rules restrict any use of the information to criminally investigate or prosecute any alcohol or drug abuse patient.[facility] HospitalIn the event this information is protected by the Federal Confidentiality of Alcohol and Drug Abuse Patient Records regulations: The Federal rules restrict any use of the information to criminally investigate or prosecute any alcohol or drug abuse patient.[facility] HospitalIn the event this information is protected by the Federal Confidentiality of Alcohol and Drug Abuse Patient Records regulations: The Federal rules restrict any use of the information to criminally investigate or prosecute any alcohol or drug abuse patient.[facility] HospitalIn the event this information is protected by the Federal Confidentiality of Alcohol and Drug Abuse Patient Records regulations: The Federal rules restrict any use of the information to criminally investigate or prosecute any alcohol or drug abuse patient.[facility] HospitalIn the event this information is protected by the Federal Confidentiality of Alcohol and Drug Abuse Patient Records regulations: The Federal rules restrict any use of the information to criminally investigate or prosecute any alcohol or drug abuse patient.[facility] HospitalIn the event this information is protected by the Federal Confidentiality of Alcohol and Drug Abuse Patient Records regulations: The Federal rules restrict any use of the information to criminally investigate or prosecute any alcohol or drug abuse patient.[facility]In the event this information is protected by the Federal Confidentiality of Alcohol and Drug Abuse Patient Records regulations: The Federal rules restrict any use of the information to criminally investigate or prosecute any alcohol or drug abuse patient.[facility] HospitalIn the event this information is protected by the Federal Confidentiality of Alcohol and Drug Abuse Patient Records regulations: The Federal rules restrict any use of the information to criminally investigate or prosecute any alcohol or drug abuse patient.[facility] HospitalIn the event this information is protected by the Federal Confidentiality of Alcohol and Drug Abuse Patient Records regulations: The Federal rules restrict any use of the information to criminally investigate or prosecute any alcohol or drug abuse patient.[facility] HospitalIn the event this information is protected by the Federal Confidentiality of Alcohol and Drug Abuse Patient Records regulations: The Federal rules restrict any use of the information to criminally investigate or prosecute any alcohol or drug abuse patient.[facility] HospitalIn the event this information is protected by the Federal Confidentiality of Alcohol and Drug Abuse Patient Records regulations: The Federal rules restrict any use of the information to criminally investigate or prosecute any alcohol or drug abuse patient.[facility] HospitalIn the event this information is protected by the Federal Confidentiality of Alcohol and Drug Abuse Patient Records regulations: The Federal rules restrict any use of the information to criminally investigate or prosecute any alcohol or drug abuse patient.[facility]In the event this information is protected by the Federal Confidentiality of Alcohol and Drug Abuse Patient Records regulations: The Federal rules restrict any use of the information to criminally investigate or prosecute any alcohol or drug abuse patient.[facility] HospitalIn the event this information is protected by the Federal Confidentiality of Alcohol and Drug Abuse Patient Records regulations: The Federal rules restrict any use of the information to criminally investigate or prosecute any alcohol or drug abuse patient.[facility] HospitalIn the event this information is protected by the Federal Confidentiality of Alcohol and Drug Abuse Patient Records regulations: The Federal rules restrict any use of the information to criminally investigate or prosecute any alcohol or drug abuse patient.[facility] HospitalIn the event this information is protected by the Federal Confidentiality of Alcohol and Drug Abuse Patient Records regulations: The Federal rules restrict any use of the information to criminally investigate or prosecute any alcohol or drug abuse patient.[facility] HospitalIn the event this information is protected by the Federal Confidentiality of Alcohol and Drug Abuse Patient Records regulations: The Federal rules restrict any use of the information to criminally investigate or prosecute any alcohol or drug abuse patient.[facility] HospitalIn the event this information is protected by the Federal Confidentiality of Alcohol and Drug Abuse Patient Records regulations: The Federal rules restrict any use of the information to criminally investigate or prosecute any alcohol or drug abuse patient.[facility] HospitalIn the event this information is protected by the Federal Confidentiality of Alcohol and Drug Abuse Patient Records regulations: The Federal rules restrict any use of the information to criminally investigate or prosecute any alcohol or drug abuse patient.[facility] HospitalIn the event this information is protected by the Federal Confidentiality of Alcohol and Drug Abuse Patient Records regulations: The Federal rules restrict any use of the information to criminally investigate or prosecute any alcohol or drug abuse patient.[facility]In the event this information is protected by the Federal Confidentiality of Alcohol and Drug Abuse Patient Records regulations: The Federal rules restrict any use of the information to criminally investigate or prosecute any alcohol or drug abuse patient.[facility]In the event this information is protected by the Federal Confidentiality of Alcohol and Drug Abuse Patient Records regulations: The Federal rules restrict any use of the information to criminally investigate or prosecute any alcohol or drug abuse patient.[facility]In the event this information is protected by the Federal Confidentiality of Alcohol and Drug Abuse Patient Records regulations: The Federal rules restrict any use of the information to criminally investigate or prosecute any alcohol or drug abuse patient.[facility] HospitalIn the event this information is protected by the Federal Confidentiality of Alcohol and Drug Abuse Patient Records regulations: The Federal rules restrict any use of the information to criminally investigate or prosecute any alcohol or drug abuse patient.[facility] HospitalIn the event this information is protected by the Federal Confidentiality of Alcohol and Drug Abuse Patient Records regulations: The Federal rules restrict any use of the information to criminally investigate or prosecute any alcohol or drug abuse patient.[facility] HospitalIn the event this information is protected by the Federal Confidentiality of Alcohol and Drug Abuse Patient Records regulations: The Federal rules restrict any use of the information to criminally investigate or prosecute any alcohol or drug abuse patient.[facility]In the event this information is protected by the Federal Confidentiality of Alcohol and Drug Abuse Patient Records regulations: The Federal rules restrict any use of the information to criminally investigate or prosecute any alcohol or drug abuse patient.[facility]In the event this information is protected by the Federal Confidentiality of Alcohol and Drug Abuse Patient Records regulations: The Federal rules restrict any use of the information to criminally investigate or prosecute any alcohol or drug abuse patient.[facility]In the event this information is protected by the Federal Confidentiality of Alcohol and Drug Abuse Patient Records regulations: The Federal rules restrict any use of the information to criminally investigate or prosecute any alcohol or drug abuse patient.[facility]In the event this information is protected by the Federal Confidentiality of Alcohol and Drug Abuse Patient Records regulations: The Federal rules restrict any use of the information to criminally investigate or prosecute any alcohol or drug abuse patient.[facility]In the event this information is protected by the Federal Confidentiality of Alcohol and Drug Abuse Patient Records regulations: The Federal rules restrict any use of the information to criminally investigate or prosecute any alcohol or drug abuse patient.[facility]In the event this information is protected by the Federal Confidentiality of Alcohol and Drug Abuse Patient Records regulations: The Federal rules restrict any use of the information to criminally investigate or prosecute any alcohol or drug abuse patient.[facility]In the event this information is protected by the Federal Confidentiality of Alcohol and Drug Abuse Patient Records regulations: The Federal rules restrict any use of the information to criminally investigate or prosecute any alcohol or drug abuse patient.[facility]In the event this information is protected by the Federal Confidentiality of Alcohol and Drug Abuse Patient Records regulations: The Federal rules restrict any use of the information to criminally investigate or prosecute any alcohol or drug abuse patient.[facility]In the event this information is protected by the Federal Confidentiality of Alcohol and Drug Abuse Patient Records regulations: The Federal rules restrict any use of the information to criminally investigate or prosecute any alcohol or drug abuse patient.[facility]In the event this information is protected by the Federal Confidentiality of Alcohol and Drug Abuse Patient Records regulations: The Federal rules restrict any use of the information to criminally investigate or prosecute any alcohol or drug abuse patient.[facility]In the event this information is protected by the Federal Confidentiality of Alcohol and Drug Abuse Patient Records regulations: The Federal rules restrict any use of the information to criminally investigate or prosecute any alcohol or drug abuse patient.[facility]In the event this information is protected by the Federal Confidentiality of Alcohol and Drug Abuse Patient Records regulations: The Federal rules restrict any use of the information to criminally investigate or prosecute any alcohol or drug abuse patient.[facility]In the event this information is protected by the Federal Confidentiality of Alcohol and Drug Abuse Patient Records regulations: The Federal rules restrict any use of the information to criminally investigate or prosecute any alcohol or drug abuse patient.[facility]In the event this information is protected by the Federal Confidentiality of Alcohol and Drug Abuse Patient Records regulations: The Federal rules restrict any use of the information to criminally investigate or prosecute any alcohol or drug abuse patient.[facility] HospitalIn the event this information is protected by the Federal Confidentiality of Alcohol and Drug Abuse Patient Records regulations: The Federal rules restrict any use of the information to criminally investigate or prosecute any alcohol or drug abuse patient.[facility] HospitalIn the event this information is protected by the Federal Confidentiality of Alcohol and Drug Abuse Patient Records regulations: The Federal rules restrict any use of the information to criminally investigate or prosecute any alcohol or drug abuse patient.[facility] HospitalIn the event this information is protected by the Federal Confidentiality of Alcohol and Drug Abuse Patient Records regulations: The Federal rules restrict any use of the information to criminally investigate or prosecute any alcohol or drug abuse patient.[facility] HospitalIn the event this information is protected by the Federal Confidentiality of Alcohol and Drug Abuse Patient Records regulations: The Federal rules restrict any use of the information to criminally investigate or prosecute any alcohol or drug abuse patient.[facility] HospitalIn the event this information is protected by the Federal Confidentiality of Alcohol and Drug Abuse Patient Records regulations: The Federal rules restrict any use of the information to criminally investigate or prosecute any alcohol or drug abuse patient.[facility] HospitalIn the event this information is protected by the Federal Confidentiality of Alcohol and Drug Abuse Patient Records regulations: The Federal rules restrict any use of the information to criminally investigate or prosecute any alcohol or drug abuse patient.[facility] HospitalIn the event this information is protected by the Federal Confidentiality of Alcohol and Drug Abuse Patient Records regulations: The Federal rules restrict any use of the information to criminally investigate or prosecute any alcohol or drug abuse patient.[facility] HospitalIn the event this information is protected by the Federal Confidentiality of Alcohol and Drug Abuse Patient Records regulations: The Federal rules restrict any use of the information to criminally investigate or prosecute any alcohol or drug abuse patient.[facility] HospitalIn the event this information is protected by the Federal Confidentiality of Alcohol and Drug Abuse Patient Records regulations: The Federal rules restrict any use of the information to criminally investigate or prosecute any alcohol or drug abuse patient.[facility] HospitalIn the event this information is protected by the Federal Confidentiality of Alcohol and Drug Abuse Patient Records regulations: The Federal rules restrict any use of the information to criminally investigate or prosecute any alcohol or drug abuse patient.[facility] HospitalIn the event this information is protected by the Federal Confidentiality of Alcohol and Drug Abuse Patient Records regulations: The Federal rules restrict any use of the information to criminally investigate or prosecute any alcohol or drug abuse patient.[facility] HospitalIn the event this information is protected by the Federal Confidentiality of Alcohol and Drug Abuse Patient Records regulations: The Federal rules restrict any use of the information to criminally investigate or prosecute any alcohol or drug abuse patient.[facility] HospitalIn the event this information is protected by the Federal Confidentiality of Alcohol and Drug Abuse Patient Records regulations: The Federal rules restrict any use of the information to criminally investigate or prosecute any alcohol or drug abuse patient.[facility] HospitalIn the event this information is protected by the Federal Confidentiality of Alcohol and Drug Abuse Patient Records regulations: The Federal rules restrict any use of the information to criminally investigate or prosecute any alcohol or drug abuse patient.[facility] HospitalIn the event this information is protected by the Federal Confidentiality of Alcohol and Drug Abuse Patient Records regulations: The Federal rules restrict any use of the information to criminally investigate or prosecute any alcohol or drug abuse patient.[facility] HospitalIn the event this information is protected by the Federal Confidentiality of Alcohol and Drug Abuse Patient Records regulations: The Federal rules restrict any use of the information to criminally investigate or prosecute any alcohol or drug abuse patient.[facility] HospitalIn the event this information is protected by the Federal Confidentiality of Alcohol and Drug Abuse Patient Records regulations: The Federal rules restrict any use of the information to criminally investigate or prosecute any alcohol or drug abuse patient.[facility] HospitalIn the event this information is protected by the Federal Confidentiality of Alcohol and Drug Abuse Patient Records regulations: The Federal rules restrict any use of the information to criminally investigate or prosecute any alcohol or drug abuse patient.[facility] HospitalIn the event this information is protected by the Federal Confidentiality of Alcohol and Drug Abuse Patient Records regulations: The Federal rules restrict any use of the information to criminally investigate or prosecute any alcohol or drug abuse patient.[facility] HospitalIn the event this information is protected by the Federal Confidentiality of Alcohol and Drug Abuse Patient Records regulations: The Federal rules restrict any use of the information to criminally investigate or prosecute any alcohol or drug abuse patient.[facility] HospitalIn the event this information is protected by the Federal Confidentiality of Alcohol and Drug Abuse Patient Records regulations: The Federal rules restrict any use of the information to criminally investigate or prosecute any alcohol or drug abuse patient.[facility] HospitalIn the event this information is protected by the Federal Confidentiality of Alcohol and Drug Abuse Patient Records regulations: The Federal rules restrict any use of the information to criminally investigate or prosecute any alcohol or drug abuse patient.[facility] HospitalIn the event this information is protected by the Federal Confidentiality of Alcohol and Drug Abuse Patient Records regulations: The Federal rules restrict any use of the information to criminally investigate or prosecute any alcohol or drug abuse patient.[facility] HospitalIn the event this information is protected by the Federal Confidentiality of Alcohol and Drug Abuse Patient Records regulations: The Federal rules restrict any use of the information to criminally investigate or prosecute any alcohol or drug abuse patient.[facility] HospitalIn the event this information is protected by the Federal Confidentiality of Alcohol and Drug Abuse Patient Records regulations: The Federal rules restrict any use of the information to criminally investigate or prosecute any alcohol or drug abuse patient.[facility] HospitalIn the event this information is protected by the Federal Confidentiality of Alcohol and Drug Abuse Patient Records regulations: The Federal rules restrict any use of the information to criminally investigate or prosecute any alcohol or drug abuse patient.[facility] HospitalIn the event this information is protected by the Federal Confidentiality of Alcohol and Drug Abuse Patient Records regulations: The Federal rules restrict any use of the information to criminally investigate or prosecute any alcohol or drug abuse patient.[facility] HospitalIn the event this information is protected by the Federal Confidentiality of Alcohol and Drug Abuse Patient Records regulations: The Federal rules restrict any use of the information to criminally investigate or prosecute any alcohol or drug abuse patient.[facility] HospitalIn the event this information is protected by the Federal Confidentiality of Alcohol and Drug Abuse Patient Records regulations: The Federal rules restrict any use of the information to criminally investigate or prosecute any alcohol or drug abuse patient.[facility] HospitalIn the event this information is protected by the Federal Confidentiality of Alcohol and Drug Abuse Patient Records regulations: The Federal rules restrict any use of the information to criminally investigate or prosecute any alcohol or drug abuse patient.[facility] HospitalIn the event this information is protected by the Federal Confidentiality of Alcohol and Drug Abuse Patient Records regulations: The Federal rules restrict any use of the information to criminally investigate or prosecute any alcohol or drug abuse patient.[facility] HospitalIn the event this information is protected by the Federal Confidentiality of Alcohol and Drug Abuse Patient Records regulations: The Federal rules restrict any use of the information to criminally investigate or prosecute any alcohol or drug abuse patient.[facility] HospitalIn the event this information is protected by the Federal Confidentiality of Alcohol and Drug Abuse Patient Records regulations: The Federal rules restrict any use of the information to criminally investigate or prosecute any alcohol or drug abuse patient.[facility] HospitalIn the event this information is protected by the Federal Confidentiality of Alcohol and Drug Abuse Patient Records regulations: The Federal rules restrict any use of the information to criminally investigate or prosecute any alcohol or drug abuse patient.[facility] HospitalIn the event this information is protected by the Federal Confidentiality of Alcohol and Drug Abuse Patient Records regulations: The Federal rules restrict any use of the information to criminally investigate or prosecute any alcohol or drug abuse patient.[facility] HospitalIn the event this information is protected by the Federal Confidentiality of Alcohol and Drug Abuse Patient Records regulations: The Federal rules restrict any use of the information to criminally investigate or prosecute any alcohol or drug abuse patient.[facility] Reason for Visit (unrecogniz ed section and content) Reason Comments Follow Up Specialty Diagnoses / Procedures Referred By Petra meek Referred To Contact Family Medicine / FAMILY MEDICINE Diagnoses Follow up. Procedures 4C EST Ivette Grimes MD [address] [place] [address] Ivette Grimes MD [address] [place] [address] Referral ID Status Reason Start Date Expiration Date V isits Requested Visits Authorized [id number] Pending Review 01/31/2023 05/01/2023 1 1 Reason Comments New Patient Specialty Diagnoses / Procedures Referred By Petra meek Referred To Contact Pain Management Diagnoses Chronic left shoulder pain Procedures CONSULT TO PAIN MGT OFFICE/OUTPATIENT NEW HIGH MDM 60-74 MINUTES Ivette Grimes MD [address] [place] [address] Referral ID Status Reason Start Date Expiration Date V isits Requested Visits Authorized [id number] Closed PCP Requested Referral 01/22/2022 01/22/2023 1 [...] status migrainosus Procedures CONSULT TO NEUROLOGY OFFICE/OUTPATIENT [facility] MDM 60-[place] [address] [place] [address] Referral ID Status Reason Start Date Expiration Date V isits Requested Visits Authorized [id number] Closed PCP Requested Referral 12/25/2021 12/25/2022 1 1 Reason Onset Date Comments Refill Request 04/16/2022 Reason Comments Follow Up shoulder pain, switc h medication back to gabapentin Specialty Diagnoses / Procedures Referred By Contac t Referred To Contact Family Practice / FAMILY MEDICINE Diagnoses Follow-up exam follow up Procedures OFFICE/OUTPATIENT [facility] MDM 40-54 MIN [facility] OFFICE VISIT Ivette Grimes MD [address] [place] [address] [place] [address] [place] [address] Referral ID Status Reason Start Date Expiration Date Visits Re quested Visits Authorized [id number] Closed 04/17/2022 11/03/2022 1 1 Reason Onset [...] IMG S&I PROCEDURE 20 Elle Sanchez MD [address] [facility] [address] [place] [address] Elle Sanchez MD [address] [place] [address] Referral ID Status Reason Start Date Expiration Date Visits Re quested Visits Authorized [id number] Closed 05/10/2022 06/10/2022 1 1 Reason Comments Procedure Follow Up Reason Comments Follow Up Specialty Diagnoses / Procedures Referred By Contac t Referred To Contact Pain Management / PAIN MANAGEMENT Diagnoses OV & follow up inj Procedures OFFICE/OUTPATIENT ESTABLISHED [facility] 30-39 MIN EST PATIENT Elle Sanchez MD [address] [address] Adelina Mason, SEARCH DIRECTOR.PROJECTION ENGINEER [address] [place] [address] Referral ID Status Reason Start Date Expiration Date Visits Re quested Visits Authorized [id number] Closed 11/04/2021 11/03/2022 1 1 Reason Comments Appointment Reason Comments Headache follow up Specialty Diagnoses / Procedures Referred By Contac t Referred To Contact Neurology Diagnoses Migraine with aura, not intractable, without status migrainosus Procedures CONSULT TO NEUROLOGY OFFICE/OUTPATIENT [facility] 60-74 MINUTES Ivette Grimes MD [address] [place] [address] Reason Comments Orders Reason Onset Date Comments Refill Request 06/22/2022 Reason Onset Date Comments Refill Request 07/10/2022 Reason Comments Patient Update Injection questions Reason Comments Chronic Migraine X 6-7 years Specialty Diagnoses / Procedures Referred By Contac t Referred To Contact Diagnoses Intractable migraine without aura and without status migrainosus Procedures CONSULT TO HEADACHE CLINIC OFFICE/OUTPATIENT [facility] 60-74 MINUTES Tara Gillette, THOM.PROJECTION ENGINEER [address] [place] [address] Referral ID Status Reason Start Date Expiration Date V isits Requested Visits Authorized [id number] Closed PCP Requested Referral 06/07/2022 06/07/2023 1 [...] MYC OFFICE VISIT Ivette Grimes MD [address] [place] [address] [place] [address] [place] [address] Referral ID Status Reason Start Date Expiration Date V isits Requested Visits Authorized [id number] Authorized 04/17/2022 11/03/2022 99 99 Reason Comments Patient Update Reason Comments Follow Up Acute Visit Reason Comments Fatigue Specialty Diagnoses / Procedures Referred By Petra meek Referred To Contact Family Medicine / FAMILY MEDICINE Diagnoses dizzy-follow up from virtual with Dr Bianchi 09/03 Procedures 4C EST Ivette Grimes MD [address] [place] [address] [place] [address] [place] [address] Referral ID Status Reason Start Date Expiration Date Visits Re quested Visits Authorized [id number] Closed 09/04/2022 12/03/2022 1 1 Reason Onset [...] MINUTES VIDEO PSYC/PSYL NEW Self Grace Coronel, SEARCH DIRECTOR.PROJECTION ENGINEER [address] [place] [address] Referral ID Status Reason Start Date Expiration Date Visits Re quested Visits Authorized [id number] Closed 11/04/2021 11/03/2022 1 1 Reason Comments Follow Up Pain (Shoulder Pain) Left Specialty Diagnoses / Procedures Referred By Petra meek Referred To Contact Pain Management / PAIN MANAGEMENT Diagnoses Examination wants to discuss options since Insurance denied RFA Procedures OFFICE/OUTPATIENT ESTABLISHED MOD MDM 30-39 MIN EST PATIENT Self Adelina Mason, SEARCH DIRECTOR.PROJECTION ENGINEER [address] [place] [address] Referral ID Status Reason Start Date Expiration Date V isits Requested Visits Authorized [id number] Closed Patient Cleared - Admin/Chairm an/Director advise to proceed 11/08/2022 02/06/2023 1 1 Reason Onset Date Comments Refill Request 11/15/2022 Reason Onset Date Comments Refill Request 11/23/2022 Reason Comments ER F/U Reason Comments Patient Question [place] appointment on 12/05/22 Reason Comments Acute Visit [...] referral botox 200 units every 90 days [id number] Karen Bansal, SEARCH DIRECTOR.PROJECTION ENGINEER [address] [place] [address] Neur Adult Main [address] [place] [address] Referral ID Status Reason Start Date Expiration Date V isits Requested Visits Authorized [id number] Authorized 08/15/2022 01/30/2023 2 2 Reason Comments [...] Referred By Contac t Referred To Contact HOUSE CALLS NURSE Diagnoses annual Procedures EST I ANNUAL PATIENT Self Galina Camacho MD [address] [place] [address] Referral ID Status Reason Start Date Expiration Date V isits Requested Visits Authorized [id number] Closed Patient Cleared - INN Insurance Found [...] due on 04/22/23 Fatuma Beckford PA-C [address] [facility] [place] [address] Neur Adult Main [address] [place] [address] Referral ID Status Reason Start Date Expiration Date V isits Requested Visits Authorized [id number] Authorized 04/02/2023 04/02/2024 4 4 Reason Comments [...] Injection Specialty Diagnoses / Procedures Referred By Petra t Referred To Contact ADULT NEUROLOGY Diagnoses Intractable chronic migraine without aura Procedures BOTULINUM TOXIN A PER 1 UNIT CHEMODERVATE FACIAL/TRIGEM/CERV MUSC MIGRAINE Renewal botox 200 units every 90 days. Patient due on 04/22/23 Fatuma Beckford PA-C [address] [place] [address] [place] [address] Neur Adult [facility] [address] [place] [address] Referral ID Status Reason Start Date Expiration Date Visits Re quested Visits Authorized [id number] Closed 04/02/2023 04/02/2024 4 4 Reason Comments [...] FACIAL/TRIGEM/CERV MUSC MIGRAINE Fatuma Beckford PA-C [address] [facility] [place] [address] [place] [address] [facility] [place] [address] Referral ID Status Reason Start Date Expiration Date V isits Requested Visits Authorized [id number] Authorized 07/01/2024 11/03/2024 99 99 Reason Onset [...] Care Teams (unrecognized sec tion and content) Pit Recorder Relationship Specialty Start Date End Date Ivette Grimes MD [address] [place] [address] PCP - General Family Practice 11/21/13 [facility] [address] [place] [address] Pharmacist Pharmacy 05/19/20 Pit Recorder Relationship Specialty Start Date End Date Ivette Grimes MD [address] [place] [address] PCP - General Family Practice 11/21/13 [facility] [address] [place] [address] Pharmacist Pharmacy 05/19/20 Pit Recorder Relationship Specialty Start Date End Date Ivette Grimes MD [address] [place] [address] PCP - General Family Practice 11/21/13 [facility] [address] [place] [address] Pharmacist Pharmacy 05/19/20 Pit Recorder Relationship Specialty Start Date End Date Ivette Grimes MD [address] [place] [address] PCP - General Family Practice 11/21/13 [facility] [address] [place] [address] Pharmacist Pharmacy 05/19/20 Pit Recorder Relationship Specialty Start Date End Date Ivette Grimes MD [address] [place] [address] PCP - General Family Practice 11/21/13 Jagdish Carballo, [facility] [address] [place] [address] Pharmacist Pharmacy 05/19/20 Pit Recorder Relationship Specialty Start Date End Date Ivette Grimes MD [address] [place] [address] PCP - General Family Practice 11/21/13 [facility] [address] [place] [address] Pharmacist Pharmacy 05/19/20 Pit Recorder Relationship Specialty Start Date End Date Ivette Grimes MD [address] [place] [address] PCP - General Family Practice 11/21/13 MartinhenryJagdish, [facility] [address] [place] [address] Pharmacist Pharmacy 05/19/20 Pit Recorder Relationship Specialty Start Date End Date Ivette Grimes MD [address] [place] [address] PCP - General Family Practice 11/21/13 Jagdish Carballo, [facility] [address] [place] [address] Pharmacist Pharmacy 05/19/20 Pit Recorder Relationship Specialty Start Date End Date Ivette Grimes MD [address] [place] [address] PCP - General Family Practice 11/21/13 [facility] [address] [place] [address] Pharmacist Pharmacy 05/19/20 Pit Recorder Relationship Specialty Start Date End Date Ivette Grimes MD [address] [place] [address] PCP - General Family Practice 11/21/13 [facility] [address] [place] [address] Pharmacist Pharmacy 05/19/20 Pit Recorder Relationship Specialty Start Date End Date Ivette Grimes MD [address] [place] [address] PCP - General Family Practice 11/21/13 [facility] [address] [place] [address] Pharmacist Pharmacy 05/19/20 Pit Recorder Relationship Specialty Start Date End Date Ivette Grimes MD [address] [place] [address] PCP - General Family Practice 11/21/13 [facility] [address] [place] [address] Pharmacist Pharmacy 05/19/20 Pit Recorder Relationship Specialty Start Date End Date Ivette Grimes MD [address] [place] [address] PCP - General Family Practice 11/21/13 Jagdish Carballo, [facility] [address] [place] [address] Pharmacist Pharmacy 05/19/20 Pit Recorder Relationship Specialty Start Date End Date Ivette Grimes MD [address] [place] [address] PCP - General Family Practice 11/21/13 Jagdish Carballo, [facility] [address] [place] [address] Pharmacist Pharmacy 05/19/20 Pit Recorder Relationship Specialty Start Date End Date Ivette Grimes MD [address] [place] [address] PCP - General Family Practice 11/21/13 Jagdish Carballo, [facility] [address] [place] [address] Pharmacist Pharmacy 05/19/20 Pit Recorder Relationship Specialty Start Date End Date Ivette Grimes MD [address] [place] [address] PCP - General Family Practice 11/21/13 Jagdish Carballo, [facility] [address] [place] [address] Pharmacist Pharmacy 05/19/20 Pit Recorder Relationship Specialty Start Date End Date Ivette Grimes MD [address] [place] [address] PCP - General Family Practice 11/21/13 Jagdish Carballo, [facility] [address] [place] [address] Pharmacist Pharmacy 05/19/20 Pit Recorder Relationship Specialty Start Date End Date Ivette Grimes MD [address] [place] [address] PCP - General Family Practice 11/21/13 Jagdish Carballo, [facility] [address] [place] [address] Pharmacist Pharmacy 05/19/20 Pit Recorder Relationship Specialty Start Date End Date Ivette Grimes MD [address] [place] [address] PCP - General Family Practice 11/21/13 [facility] [address] [place] [address] Pharmacist Pharmacy 05/19/20 Pit Recorder Relationship Specialty Start Date End Date Ivette Grimes MD [address] [place] [address] PCP - General Family Medicine 11/21/13 [facility] [address] [place] [address] Pharmacist Pharmacy 05/19/20 Pit Recorder Relationship Specialty Start Date End Date Ivette Grimes MD [address] [place] [address] PCP - General Family Medicine 11/21/13 [facility] [address] [place] [address] Pharmacist Pharmacy 05/19/20 Pit Recorder Relationship Specialty Start Date End Date Ivette Grimes MD [address] [place] [address] PCP - General Family Medicine 11/21/13 [facility] [address] [place] [address] Pharmacist Pharmacy 05/19/20 Pit Recorder Relationship Specialty Start Date End Date Ivette Grimes MD [address] [place] [address] PCP - General Family Medicine 11/21/13 Jagdish Carballo, [facility] [address] [place] [address] Pharmacist Pharmacy 05/19/20 Pit Recorder Relationship Specialty Start Date End Date Ivette Grimes MD [address] [place] [address] PCP - General Family Medicine 11/21/13 Jagdish Carballo, [facility] [address] [place] [address] Pharmacist Pharmacy 05/19/20 Pit Recorder Relationship Specialty Start Date End Date Ivette Grimes MD [address] [place] [address] PCP - General Family Medicine 11/21/13 Jagdish Carballo, [facility] [address] [place] [address] Pharmacist Pharmacy 05/19/20 Pit Recorder Relationship Specialty Start Date End Date Ivette Grimes MD [address] [place] [address] PCP - General Family Medicine 11/21/13 Jagdish Carballo, [facility] [address] [place] [address] Pharmacist Pharmacy 05/19/20 Pit Recorder Relationship Specialty Start Date End Date Ivette Grimes MD [address] [place] [address] PCP - General Family Medicine 11/21/13 Jagdish Carabllo, [facility] [address] [place] [address] Pharmacist Pharmacy 05/19/20 Pit Recorder Relationship Specialty Start Date End Date Ivette Grimes MD [address] [place] [address] PCP - General Family Medicine 11/21/13 Jagdish Carballo, [facility] [address] [place] [address] Pharmacist Pharmacy 05/19/20 Pit Recorder Relationship Specialty Start Date End Date Ivette Grimes MD [address] [place] [address] PCP - General Family Medicine 11/21/13 Jagdish Carballo, [facility] [address] [place] [address] Pharmacist Pharmacy 05/19/20 Pit Recorder Relationship Specialty Start Date End Date Ivette Grimes MD [address] [place] [address] PCP - General Family Medicine 11/21/13 Jagdish Carballo, [facility] [address] [place] [address] Pharmacist Pharmacy 05/19/20 Pit Recorder Relationship Specialty Start Date End Date Ivette Grimes MD [address] [place] [address] PCP - General Family Medicine 11/21/13 Jagdish Carballo, [facility] [address] [place] [address] Pharmacist Pharmacy 05/19/20 Pit Recorder Relationship Specialty Start Date End Date Ivette Grimes MD [address] [place] [address] PCP - General Family Medicine 11/21/13 Jagdish Carballo, [facility] [address] [place] [address] Pharmacist Pharmacy 05/19/20 Pit Recorder Relationship Specialty Start Date End Date Ivette Grimes MD [address] [place] [address] PCP - General Family Medicine 11/21/13 Jagdish Carballo, [facility] [address] [place] [address] Pharmacist Pharmacy 05/19/20 Pit Recorder Relationship Specialty Start Date End Date Ivette Grimes MD [address] [place] [address] PCP - General Family Medicine 11/21/13 [facility] [address] [place] [address] Pharmacist Pharmacy 05/19/20 Pit Recorder Relationship Specialty Start Date End Date Ivette Grimes MD [address] [place] [address] PCP - General Family Medicine 11/21/13 [facility] [address] [place] [address] Pharmacist Pharmacy 05/19/20 Pit Recorder Relationship Specialty Start Date End Date Ivette Grimes MD [address] [place] [address] PCP - General Family Medicine 11/21/13 [facility] [address] [place] [address] Pharmacist Pharmacy 05/19/20 Jemal Orozco MD [address] [place] [address] Cardiology 10/31/22 Pit Recorder Relationship Specialty Start Date End Date Ivette Grimes MD [address] [place] [address] PCP - General Family Medicine 11/21/13 [facility] [address] [place] [address] Pharmacist Pharmacy 05/19/20 Jemal Orozco MD [address] [place], [place] [id number] Cardiology 10/31/22 Pit Recorder Relationship Specialty Start Date End Date Ivette Grimes MD [address] [place] [address] PCP - General Family Medicine 11/21/13 [facility] [address] [place] [address] Pharmacist Pharmacy 05/19/20 Jemal Orozco MD [address] [place] [address] Cardiology 10/31/22 Pit Recorder Relationship Specialty Start Date End Date Ivette Grimes MD [address] [place] [address] PCP - General Family Medicine 11/21/13 [facility] [address] [place] [address] Pharmacist Pharmacy 05/19/20 Jemal Orozco MD [address] [place] [address] Cardiology 10/31/22 Team Status: Active [...] Ivette Mejia MD Attending Provider, Referring P abbi Active Team Status: Active Member Role Status [...] Dr. Tod Callejas MD Emergency Provider Active Pit Recorder Relationship Specialty Start Date End Date Ivette Grimes MD [address] [place] [address] PCP - General Family Medicine 11/21/13 [facility] [address] [place] [address] Pharmacist Pharmacy 05/19/20 Jemal Orozco MD [address] [place], [place] [phone] Cardiology 10/31/22 Pit Recorder Relationship Specialty Start Date End Date Ivette Grimes MD [address] [place] [address] PCP - General Family Medicine 11/21/13 [facility] [address] [place] [address] Pharmacist Pharmacy 05/19/20 Jemal Orozco MD [address] [place] [address] Cardiology 10/31/22 Pit Recorder Relationship Specialty Start Date End Date Ivette Grimes MD [address] [place] [address] PCP - General Family Medicine 11/21/13 [facility] [address] [place] [address] Pharmacist Pharmacy 05/19/20 Jemal Orozco MD [address] [place] [address] Cardiology 10/31/22 Pit Recorder Relationship Specialty Start Date End Date Ivette Grimes MD [address] [place] [address] PCP - General Family Medicine 11/21/13 [facility] [address] [place] [address] Pharmacist Pharmacy 05/19/20 Jeaml Orozco MD [address] [place] [address] Cardiology 10/31/22 Pit Recorder Relationship Specialty Start Date End Date Ivette Grimes MD [address] [place] [address] PCP - General Family Medicine 11/21/13 [facility] [address] [place] [address] Pharmacist Pharmacy 05/19/20 Jemal Orozco MD [address] [place] [address] Cardiology 10/31/22 Pit Recorder Relationship Specialty Start Date End Date Ivette Grimes MD [address] [place] [address] PCP - General Family Medicine 11/21/13 [facility]ad [facility] [address] [place] [address] Pharmacist Pharmacy 05/19/20 Jemal Orozco MD [address] [place] [address] Cardiology 10/31/22 Pit Recorder Relationship Specialty Start Date End Date Ivette Grimes MD [address] [place] [address] PCP - General Family Medicine 11/21/13 Kait [facility] [address] [place] [address] Pharmacist Pharmacy 05/19/20 Jemal Orozco MD [address] [place] [address] Cardiology 10/31/22 Pit Recorder Relationship Specialty Start Date End Date Ivette Grimes MD [address] [place] [address] PCP - General Family Medicine 11/21/13 Martinhenry [facility] [address] [place] [address] Pharmacist Pharmacy 05/19/20 Jemal Orozco MD [address] [place] [address] Cardiology 10/31/22 Pit Recorder Relationship Specialty Start Date End Date Ivette Grimes MD [address] [place] [address] PCP - General Family Medicine 11/21/13 [facility] [address] [place] [address] Pharmacist Pharmacy 05/19/20 Jemal Orozco MD [address] [place], [place] [phone] Cardiology 10/31/22 Pit Recorder Relationship Specialty Start Date End Date Ivette Grimes MD [address] [place] [address] PCP - General Family Medicine 11/21/13 [facility] [address] [place] [address] Pharmacist Pharmacy 05/19/20 Jemal Orozco MD [address] [place], [place] [phone] Cardiology 10/31/22 Pit Recorder Relationship Specialty Start Date End Date Ivette Grimes MD [address] [place] [address] PCP - General Family Medicine 11/21/13 [facility] [address] [place] [address] Pharmacist Pharmacy 05/19/20 Jemal Orozco MD [address] [place] [address] Cardiology 10/31/22 Team Status: Inactive Member Role Status Dates Dr. Ivette Grimes MD Primary Care Provider, Referring Provider Active Dr. Vin Montes MD Attending Provider Active Team Status: Inactive Member Role Status Dates Dr. Ivette Grimes MD Primary Care Provider, Referring Provider Active Jesenia Mercado DRAWER HARDWARE WORKER, DRAWER HARDWARE WORKER-C Attending Provider Active Team Status: Inactive Member [...] Pearl MD Attending Provider, Emergency Provider Active Pit Recorder Relationship Specialty Start Date End Date Ivette Grimes MD [address] [place] [address] PCP - General Family Medicine 11/21/13 [facility] [address] [place] [address] Pharmacist Pharmacy 05/19/20 Jemal Orozco MD [address] [place] [address] Cardiology 10/31/22 Pit Recorder Relationship Specialty Start Date End Date Ivette Grimes MD [address] [place] [address] PCP - General Family Medicine 11/21/13 [facility] [address] [place] [address] Pharmacist Pharmacy 05/19/20 Jemal Orozco MD [address] [place] [address] Cardiology 10/31/22 Pit Recorder Relationship Specialty Start Date End Date Ivette Grimes MD [address] [place] [address] PCP - General Family Medicine 11/21/13 [facility] [address] [place] [address] Pharmacist Pharmacy 05/19/20 Jemal Orozco MD [address] [place] [address] Cardiology 10/31/22 Pit Recorder Relationship Specialty Start Date End Date Ivette Grimes MD [address] [place] [address] PCP - General Family Medicine 11/21/13 [facility] [address] [place] [address] Pharmacist Pharmacy 05/19/20 Jemal Orozco MD [address] [place], [place] [phone] Cardiology 10/31/22 Team Status: Active Member Role Status Dates Dr. Ivette Grimes MD Primary Care Provider Active Adelina Mason DRAWER HARDWARE WORKER, DRAWER HARDWARE WORKER-C Attending Provider, Willian alvarez Provider Active Pit Recorder Relationship Specialty Start Date End Date Ivette Grimes MD [address] [place] [address] PCP - General Family Medicine 11/21/13 [facility] [address] [place] [address] Pharmacist Pharmacy 05/19/20 Jemal Orozco MD [address] [place] [address] Cardiology 10/31/22 Pit Recorder Relationship Specialty Start Date End Date Ivette Grimes MD [address] [place] [address] PCP - General Family Medicine 11/21/13 [facility] [address] [place] [address] Pharmacist Pharmacy 05/19/20 Jemal Orozco MD [address] [place], [place] [phone] Cardiology 10/31/22 Pit Recorder Relationship Specialty Start Date End Date Ivette Grimes MD [address] [place] [address] PCP - General Family Medicine 11/21/13 [facility] [address] [place] [address] Pharmacist Pharmacy 05/19/20 Jemal Orozco MD [address] [place] [address] Cardiology 10/31/22 Pit Recorder Relationship Specialty Start Date End Date Ivette Grimes MD [address] [place] [address] PCP - General Family Medicine 11/21/13 [facility] [address] [place] [address] Pharmacist Pharmacy 05/19/20 Jemal Orozco MD [address] [place] [address] Cardiology 10/31/22 Pit Recorder Relationship Specialty Start Date End Date Ivette Grimes MD [address] [place] [address] PCP - General Family Medicine 11/21/13 [facility] [address] [place] [address] Pharmacist Pharmacy 05/19/20 Jemal Orozco MD [address] [place] [address] Cardiology 10/31/22 Pit Recorder Relationship Specialty Start Date End Date Ivette Grimes MD [address] [place] [address] PCP - General Family Medicine 11/21/13 [facility] [address] [place] [address] Pharmacist Pharmacy 05/19/20 Jemal Orozco MD [address] [place] [address] Cardiology 10/31/22 Team Status: Inactive Member Role Status Dates Dr. Ivette Grimes MD Primary Care Provider Active TETO RIDER Attending Provider, Referring Pro vider Active Team Status: Inactive Member Role Status Dates Dr. Ivette Grimes MD Primary Care Provider Active Dr. Sam Pearl MD Emergency Provider Active Pit Recorder Relationship Specialty Start Date End Date Ivette Grimes MD [address] [place] [address] PCP - General Family Medicine 11/21/13 [facility] [address] [place] [address] Pharmacist Pharmacy 05/19/20 Jemal Orozco MD [address] [place] [address] Cardiology 10/31/22 Pit Recorder Relationship Specialty Start Date End Date Ivette Grimes MD [address] [place] [address] PCP - General Family Medicine 11/21/13 [facility] [address] [place] [address] Pharmacist Pharmacy 05/19/20 Jemal Orozco MD [address] [place] [address] Cardiology 10/31/22 Pit Recorder Relationship Specialty Start Date End Date Ivette Grimes MD [address] [place] [address] PCP - General Family Medicine 11/21/13 [facility] [address] [place] [address] Pharmacist Pharmacy 05/19/20 Jemal Orozco MD [address] [place], [place] [id number] Cardiology 10/31/22 Pit Recorder Relationship Specialty Start Date End Date Ivette Grimes MD [address] [place] [address] PCP - General Family Medicine 11/21/13 [facility] [address] [place] [address] Pharmacist Pharmacy 05/19/20 Jemal Orozco MD [address] [place], [place] [phone] Cardiology 10/31/22 Pit Recorder Relationship Specialty Start Date End Date Ivette Grimes MD [address] [place] [address] PCP - General Family Medicine 11/21/13 [facility] [address] [place] [address] Pharmacist Pharmacy 05/19/20 Jemal Orozco MD [address] [place], [place] [phone] Cardiology 10/31/22 Pit Recorder Relationship Specialty Start Date End Date Ivette Grimes MD [address] [place] [address] PCP - General Family Medicine 11/21/13 [facility] [address] [place] [address] Pharmacist Pharmacy 05/19/20 Jemal Orozco MD [address] [place] [address] Cardiology 10/31/22 Pit Recorder Relationship Specialty Start Date End Date Ivette Grimes MD [address] [place], [place] [id number] PCP - General Family Medicine 11/21/13 [facility] [address] [place], [place] 363901 Pharmacist Pharmacy 05/19/20 Jemal Orozco MD [address] [place] [address] Cardiology 10/31/22 Team Status: Active Member Role Status Dates Dr. Ivette Grimes MD Family Provider Active Team Status: Inactive Member Role Status Dates Dr. Bibiana Rehman DC Attending Provider Active Team Status: Inactive Member Role Status Dates Dr. Ivette Grimes MD Primary Care Provider Active Adelina Mason DRAWER HARDWARE WORKER, DRAWER HARDWARE WORKER-C Attending Provider, Referrin g Provider Active Team [...] MD Admit Provider, Attending Prov ider Active Pit Recorder Relationship Specialty Start Date End Date Ivette Grimes MD [address] [place], [place] [address]88601 PCP - General Family Medicine 11/21/13 [facility] [address] [place], [place] [address]4867[address] Pharmacist Pharmacy 05/19/20 Jemal Orozco MD [address] [place], [place] [phone] Cardiology 10/31/22 Pit Recorder Relationship Specialty Start Date End Date Ivette Grimes MD [address] [place] [address] PCP - General Family Medicine 11/21/13 Jagdish Carballo, [facility] [address] [place] [address] Pharmacist Pharmacy 05/19/20 Jemal Orozco MD [address] [place], [place] 0279[address] Cardiology 10/31/22 Pit Recorder Relationship Specialty Start Date End Date Ivette Grimes MD [address] [place] [address] PCP - General Family Medicine 11/21/13 Jagdish Carballo, [facility] [address] [place] [address] Pharmacist Pharmacy 05/19/20 Jemal Orozco MD [address] [place] [address] Cardiology 10/31/22 Pit Recorder Relationship Specialty Start Date End Date Ivette Grimes MD [address] [place] [address] PCP - General Family Medicine 11/21/13 Jagdish Carballo, [facility] [address] [place] [address] Pharmacist Pharmacy 05/19/20 Jemal Orozco MD [address] [place] [address] Cardiology 10/31/22 Team Status: Inactive Member Role [...] MD Admit Provider, Attending Prov ider Active Pit Recorder Relationship Specialty Start Date End Date Ivette Grimes MD [address] [place] [address] PCP - General Family Medicine 11/21/13 [facility] [address] [place], [place] 621431 Pharmacist Pharmacy 05/19/20 Jemal Orozco MD [address] [place] [address] Cardiology 10/31/22 Pit Recorder Relationship Specialty Start Date End Date Ivette Grimes MD [address] [place] [address] PCP - General Family Medicine 11/21/13 [facility] [address] [place], [place] 855977 [phone] Pharmacist Pharmacy 05/19/20 Jemal Orozco MD [address] [place] [address] Cardiology 10/31/22 Pit Recorder Relationship Specialty Start Date End Date Ivette Grimes MD [address] [place] [address] PCP - General Family Medicine 11/21/13 [facility] [address] [place] [address] Pharmacist Pharmacy 05/19/20 Jemal Orozco MD [address] [place], [place] [phone] Cardiology 10/31/22 Team Status: Inactive Member Role Status Dates Dr. Ivette Grimes MD Primary Care Provider Active Dr. Luan Zepeda DO Emergency Provider Active Pit Recorder Relationship Specialty Start Date End Date Ivette Grimes MD [address] [place] [address] PCP - General Family Medicine 11/21/13 [facility] [address] [place] [address] Pharmacist Pharmacy 05/19/20 Jemal Orozco MD [address] [place], [place] [phone] Cardiology 10/31/22 Pit Recorder Relationship Specialty Start Date End Date Ivette Grimes MD [address] [place] [address] PCP - General Family Medicine 11/21/13 [facility] [address] [place] [address] Pharmacist Pharmacy 05/19/20 Jemal Orozco MD [address] [place], [place] [phone] Cardiology 10/31/22 Pit Recorder Relationship Specialty Start Date End Date Ivette Grimes MD [address] [place] [address] PCP - General Family Medicine 11/21/13 [facility] [address] [place] [address] Pharmacist Pharmacy 05/19/20 Jemal Orozco MD [address] [place] [address] Cardiology 10/31/22 Team Status: Inactive Member Role Status Dates Dr. Ivette Grimes MD Primary Care Provider Active Dr. Luan Zepeda DO Attending Provider, Roxane go Active Pit Recorder Relationship Specialty Start Date End Date Ivette Grimes MD [address] [place] [address] PCP - General Family Medicine 11/21/13 Jemal Orozco MD [address] [place] [address] Cardiology 10/31/22 Pit Recorder Relationship Specialty Start Date End Date Ivette Grimes MD [address] [place] [address] PCP - General Family Medicine 11/21/13 Jemal Orozco MD [address] [place] [address] Cardiology 10/31/22 Pit Recorder Relationship Specialty Start Date End Date Ivette Grimes MD [address] [place], [place] 104651 PCP - General Family Medicine 11/21/13 Jemal Orozco MD [address] [place] [address] Cardiology 10/31/22 Pit Recorder Relationship Specialty Start Date End Date Ivette Grimes MD [address] [place] [address] PCP - General Family Medicine 11/21/13 Jemal Orozco MD [address] [place] [address] Cardiology 10/31/22 Pit Recorder Relationship Specialty Start Date End Date Ivette Grimes MD [address] [place] [address] PCP - General Family Medicine 11/21/13 Jemal Orozco MD [address] [place] [address] Cardiology 10/31/22 Pit Recorder Relationship Specialty Start Date End Date Ivette Grimes MD [address] [place] [address] PCP - General Family Medicine 11/21/13 Jemal Orozco MD [address] [place], [place] [phone] Cardiology 10/31/22 Pit Recorder Relationship Specialty Start Date End Date Ivette Grimes MD [address] [place], [place] 841041 PCP - General Family Medicine 11/21/13 Jemal Orozco MD [address] [place], [place] [phone] Cardiology 10/31/22 Pit Recorder Relationship Specialty Start Date End Date Ivette Grimes MD [address] [place], [place] 209781 PCP - General Family Medicine 11/21/13 Jemal Orozco MD [address] [place], [place] 7134995 Cardiology 10/31/22 Pit Recorder Relationship Specialty Start Date End Date Ivette Grimes MD [address] [place], [place] 476921 PCP - General Family Medicine 11/21/13 Jemal Orozco MD [address] [place], [place] 6378[address] Cardiology 10/31/22 Pit Recorder Relationship Specialty Start Date End Date Ivette Grimes MD [address] [place] [address] PCP - General Family Medicine 11/21/13 Jemal Orozco MD [address] [place] [address] Cardiology 10/31/22 Pit Recorder Relationship Specialty Start Date End Date Ivette Grimes MD [address] [place] [address] PCP - General Family Medicine 11/21/13 Jemal Orozco MD [address] [place], [place] [phone] Cardiology 10/31/22 Pit Recorder Relationship Specialty Start Date End Date Ivette Grimes MD [address] [place], [place] 753431 PCP - General Family Medicine 11/21/13 Jemal Orozco MD [address] [place] [address] Cardiology 10/31/22 Pit Recorder Relationship Specialty Start Date End Date Ivette Grimes MD [address] [place], [place] 260471 PCP - General Family Medicine 11/21/13 Jemal Orozco MD [address] [place] [address] Cardiology 10/31/22 Pit Recorder Relationship Specialty Start Date End Date Ivette Grimes MD [address] [place], [place] 755941 PCP - General Family Medicine 11/21/13 Jemal Orozco MD [address] [place] [address] Cardiology 10/31/22 Pit Recorder Relationship Specialty Start Date End Date Ivette Grimes MD [address] [place], [place] 400781 PCP - General Family Medicine 11/21/13 Jagdish Carballo [facility] [address] [place], [place] 377111 Pharmacist Pharmacy 05/19/20 12/25/23 Jemal Orozco MD [address] [place], [place] [phone] Cardiology 10/31/22 Pit Recorder Relationship Specialty Start Date End Date Ivette Grimes MD [address] [place], [place] 811821 PCP - General Family Medicine 11/21/13 Jemal Orozco MD [address] [place], [place] 8369495 Cardiology 10/31/22 Pit Recorder Relationship Specialty Start Date End Date Ivette Grimes MD [address] [place], [place] 489211 PCP - General Family Medicine 11/21/13 Jemal Orozco MD [address] [place] [address] Cardiology 10/31/22 Pit Recorder Relationship Specialty Start Date End Date Ivette Grimes MD [address] [place] [address] PCP - General Family Medicine 11/21/13 Jemal Orozco MD [address] [place], [place] 7531195 Cardiology 10/31/22 Pit Recorder Relationship Specialty Start Date End Date Ivette Grimes MD [address] [place], [place] 561931 PCP - General Family Medicine 11/21/13 Jemal Orozco MD [address] [place], [place] 1337795 Cardiology 10/31/22 Pit Recorder Relationship Specialty Start Date End Date Ivette Grimes MD [address] [place], [place] 445311 PCP - General Family Medicine 11/21/13 Jemal Orozco MD [address] [place] [address] Cardiology 10/31/22 Cindy Edouard APRN.PROJECTION ENGINEER [address] [place] [address] Senior Risk Manager Family Medicine 10/12/24 Lubna De La Garza SEARCH DIRECTOR.PROJECTION ENGINEER [address] [place] [address] Senior Risk Manager [facility] Medicine 10/12/24 Pit Recorder Relationship Specialty Start Date End Date Ivette Grimes MD [address] [place] [address] PCP - General Family Medicine 11/21/13 Jemal Orozco MD [address] [place], [place] [phone] Cardiology 10/31/22 Cindy Edouard APRN.PROJECTION ENGINEER [address] [place] [address] Senior Risk Manager Family Medicine 10/12/24 Lubna De La Garza APRN.PROJECTION ENGINEER [address] [place] [address] Senior Risk Manager Family Medicine 10/12/24 Pit Recorder Relationship Specialty Start Date End Date Ivette Grimes MD [address] [place] [address] PCP - General Family Medicine 11/21/13 Jemal Orozco MD [address] [place], [place] [phone] Cardiology 10/31/22 Cindy Edouard SEARCH DIRECTOR.PROJECTION ENGINEER [address] [place] [address] Senior Risk Manager Family Medicine 10/12/24 Lubna De La Garza SEARCH DIRECTOR.PROJECTION ENGINEER [address] [place] [address] Senior Risk Manager Family Medicine 10/12/24 Pit Recorder Relationship Specialty Start Date End Date Ivette Grimes MD [address] [place] [address] PCP - General Family Medicine 11/21/13 Jemal Orozco MD [address] [place], [place] 0236995 Cardiology 10/31/22 Cindy Edouard SEARCH DIRECTOR.PROJECTION ENGINEER [address] [place] [address] Senior Risk Manager Family Medicine 10/12/24 Lubna De La Garza SEARCH DIRECTOR.PROJECTION ENGINEER [address] [place] [address] Senior Risk Manager Family Medicine 10/12/24 Pit Recorder Relationship Specialty Start Date End Date Ivette Grimes MD [address] [place], [place] 794111 PCP - General Family Medicine 11/21/13 Jemal Orozco MD [address] [place], [place] 6057295 Cardiology 10/31/22 Cindy Edouard SEARCH DIRECTOR.PROJECTION ENGINEER [address] [place] [address] Senior Risk Manager [facility] Medicine 10/12/24 Lubna De La Garza SEARCH DIRECTOR.PROJECTION ENGINEER [address] [place] [address] [facility] 10/12/24 Pit Recorder Relationship Specialty Start Date End Date Ivette Grimes MD [address] [place] [address] PCP - General Family Medicine 11/21/13 Jemal Orozco MD [address] [place], [place] [id number] Cardiology 10/31/22 Cindy Edouard SEARCH DIRECTOR.PROJECTION ENGINEER [address] [place] [address] [facility] 10/12/24 Lubna De La Garza SEARCH DIRECTOR.PROJECTION ENGINEER [address] [place] [address] [facility] 10/12/24 Pit Recorder Relationship Specialty Start Date End Date Ivette Grimes MD [address] [place] [address] PCP - General Family Medicine 11/21/13 Jemal Orozco MD [address] [place] [address] Cardiology 10/31/22 Cindy Edouard, SEARCH DIRECTOR.PROJECTION ENGINEER [address] [place] [address] Senior Risk Manager Family Medicine 10/12/24 Lubna De La Garza SEARCH DIRECTOR.PROJECTION ENGINEER [address] [place] [address] Senior Risk Manager Family Medicine 10/12/24 Pit Recorder Relationship Specialty Start Date End Date Ivette Grimes MD [address] [place] [address] PCP - General Family Medicine 11/21/13 Jemal Orozco MD [address] [place] [address] Cardiology 10/31/22 Cindy Edouard, SEARCH DIRECTOR.PROJECTION ENGINEER [address] [place] [address] Senior Risk Manager Family Medicine 10/12/24 Lubna De La Garza SEARCH DIRECTOR.PROJECTION ENGINEER [address] [place] [address] Senior Risk Manager Family Medicine 10/12/24 Pit Recorder Relationship Specialty Start Date End Date Ivette Grimes MD [address] [place] [address] PCP - General Family Medicine 11/21/13 Jemal Orozco MD [address] [place], [place] [id number] Cardiology 10/31/22 Cindy Edouard, SEARCH DIRECTOR.PROJECTION ENGINEER [address] [place] [address] Senior Risk Manager Family Medicine 10/12/24 Lubna De La Garza SEARCH DIRECTOR.PROJECTION ENGINEER [address] [place] [address] Senior Risk Manager Family Medicine 10/12/24 Pit Recorder Relationship Specialty Start Date End Date Ivette Grimes MD [address] [place], [place] [id number] PCP - General Family Medicine 11/21/13 Jemal Orozco MD [address] [place], [place] [id number] Cardiology 10/31/22 Cindy Edouard, SEARCH DIRECTOR.PROJECTION ENGINEER [address] [place] [address] Senior Risk Manager Family Medicine 10/12/24 Lubna De La Garza SEARCH DIRECTOR.PROJECTION ENGINEER [address] [place] [address] Senior Risk Manager Family Medicine 10/12/24 Pit Recorder Relationship Specialty Start Date End Date Ivette Grimes MD [address] [place] [address] PCP - General Family Medicine 11/21/13 Jemal Orozco MD [address] [place] [address] Cardiology 10/31/22 Cindy Edouard SEARCH DIRECTOR.PROJECTION ENGINEER [address] [place] [address] [facility] 10/12/24 Lubna De La Garza SEARCH DIRECTOR.PROJECTION ENGINEER [address] [place] [address] [facility] 10/12/24 Pit Recorder Relationship Specialty Start Date End Date Ivette Grimes MD [address] [place], [place] [id number] PCP - General Family Medicine 11/21/13 Jemal Orozco MD [address] [place] [address] Cardiology 10/31/22 Cindy Edouard SEARCH DIRECTOR.PROJECTION ENGINEER [address] [place], [place] [address] [facility] 10/12/24 Lubna De La Garza SEARCH DIRECTOR.PROJECTION ENGINEER [address] [place], [place] [address] [facility] 10/12/24 Team Status: Active Member Role [...] January 28, 2025 End: January 28, 2025 Pit Recorder Relationship Specialty Start Date End Date Ivette Grimes MD [address] [place] [address] PCP - General Family Medicine 11/21/13 Jemal Orozco MD [address] [place] [address] Cardiology 10/31/22 Cindy Edouard APRN.CNP [address] [place], [place] [address] [facility] 10/12/24 Lubna De La Garza SEARCH DIRECTOR.PROJECTION ENGINEER [address] [place], [place] [address] [facility] 10/12/24 Pit Recorder Relationship Specialty Start Date End Date Ivette Grimes MD [address] [place], [place] [id number] PCP - General Family Medicine 11/21/13 Jemal Orozco MD [address] [place] [address] Cardiology 10/31/22 Cindy Edouard APRN.PROJECTION ENGINEER [address] [place], [place] [address] [facility] 10/12/24 Lubna De La Garza SEARCH DIRECTOR.PROJECTION ENGINEER [address] [place], [place] [address] [facility] 10/12/24 Team Status: Inactive Member Role [...] Inactive Member Role Status Dates Dr. Ivette Grimse MD Primary Care Provider Active Start: March [...] March 22, 2025 End: March 22, 2025 Pit Recorder Relationship Specialty Start Date End Date Ivette Grimes MD [address] [place] [address] PCP - General Family Medicine 11/21/13 Jemal Orozco MD [address] [place] [address] Cardiology 10/31/22 Cindy Edouard APRN.PROJECTION ENGINEER [address] [place], [place] [id number] Senior Risk Manager Family Medicine 10/12/24 Lubna De La Garza, SEARCH DIRECTOR.PROJECTION ENGINEER [address] [place], [place] [id number] [facility] 10/12/24 Team Status: Inactive Member Role Status Dates Dr. Ivette Grimes MD Primary Care Provider Active Start: April 05, 2025 End: April 05, 2025 Dr. Ivette Grimes MD Referring Provider Active Start: April 05, 2025 End: April 05, 2025 Dr. Bibiana Rehman , [place] Attending Provider Active S tart: April 05, 2025 End: April 05, 2025 Pit Recorder Relationship Specialty Start Date End Date Ivette Grimes MD [address] [place], [place] [address] PCP - General Family Medicine 11/21/13 Jemal Orozco MD [address] [place], [place] [id number] Cardiology 10/31/22 Cindy Edouard, SEARCH DIRECTOR.PROJECTION ENGINEER [address] [place] [address] [facility] 10/12/24 Lubna De La Garza, SEARCH DIRECTOR.PROJECTION ENGINEER [address] [place] [address] [facility] 10/12/24 Team Status: Active Member Role [...] June 01, 2025 End: June 01, 2025 Pit Recorder Relationship Specialty Start Date End Date Ivette Grimes MD [address] [place], [place] [id number] PCP - General Family Medicine 11/21/13 Jemal Orozco MD [address] [place] [address] Cardiology 10/31/22 Cindy Edouard, SEARCH DIRECTOR.PROJECTION ENGINEER [address] [place], [place] [address] [facility] 10/12/24 Lubna De La Garza SEARCH DIRECTOR.PROJECTION ENGINEER [address] [place], [place] [address] [facility] 10/12/24 Team Status: Inactive Member Role/Relationship Status [...] March 11, 2025 End: March 11, 2025 rBett Quiroga MD Referring Provider Active St art: [...] June 09, 2025 End: June 09, 2025 Pit Recorder Relationship Specialty Start Date End Date Ivette Grimes MD [address] [place], [place] [address] PCP - General Family Medicine 11/21/13 Jemal Orozco MD [address] [place] [address] Cardiology 10/31/22 Cindy Edouard, SEARCH DIRECTOR.PROJECTION ENGINEER [address] [place], [place] [address] Senior Risk Manager [facility] 10/12/24 Lubna De La Garza SEARCH DIRECTOR.PROJECTION ENGINEER [address] [place], [place] [address] [facility] 10/12/24 Team Status: Inactive Member Role/Relationship [...] section and content) DATE CREATED AUTHOR 01/25/2023 [facility] DATE CREATED AUTHOR AUTHOR'S ORGANIZ ATION 06/20/2025 [facility] DATE CREATED AUTHOR AUTHOR'S ORGANIZ ATION 07/05/2025 [facility] Inactive Administered Medications - up to 3 [...] BE BASED ON THE PRIMARY CLINICAL RECORDS. [employer] provides no warranty or guarantee of the accuracy or completeness of information in this document.
--- OUTSIDE RECORDS SUMMARY | 2025-07-05 22:52 | XMS RPT_ITS | CCD ---
Author Organization [facility] Care Team Providers Care Court Monitor Name Role Phone Dossi Bibiana BEEBE Unavailable Roya Dixon Unavailable Roya Dixon Unavailable Amparo Hitchcock MD Unavailable [phone] Ivette Grimes MD Primary Care Provider [facility], Keti Unavailable Dr. Ivette Grimes Primary Care Provider Dr. Ivette Grimes Referring Provider Dr. Bibiana Rehman Attending Provider [phone] Dr. Munir Siddiqui Attending Provider Dr. Marin Villalpando Attending Provider [phone] Dr. Munir Lucas Attending Provider Dr. Sam Greene Referring Provider Ivette Grimes MD Primary Care Provider [facility], [place] Unavailable [facility], Keti Unavailable Dr. Ivette Grimes Primary Care Provider Dr. Ivette Grimes Referring Provider Dr. Bibiana Rehman Attending Provider [phone] Ivette Grimes MD Primary Care Provider Dr. Ivette Grimes Primary Care Provider Dr. Ivette Grimes Referring Provider Dossi, Dr. Mccarty Attending Provider [phone] Dr. Primo Ceron Attending Provider [place], Dr. Mcgarry Primary Care Provider Sydney, Dr. Mcgarry Referring Provider Dossi, Dr. Mccarty Attending Provider [phone] Cesar, Dr. Churchill Attending Provider [place], Dr. Mcgarry Primary Care Provider [place], Dr. Mcgarry Referring Provider Dossi, Dr. Mccarty Attending Provider [phone] Sydney, Dr. Mcgarry Primary Care Provider [place], Dr. Mcgarry Referring Provider Dossi, Dr. Mccarty Attending Provider [phone] Dr. Primo Ceron Attending Provider Cesar, Dr. Churchill Attending Provider [phone] [place] Ivette SHEARER Primary Care Provider [facility], [place]eti Unavailable [place], Dr. Mcgarry Primary Care Provider [place], Dr. Mcgarry Referring Provider Dossi, Dr. Mccarty Attending Provider [phone] Ernesto SHEARER, Jemal Unavailable [place], Dr. Mcgarry Primary Care Provider [place], Dr. Mcgarry Referring Provider Dossi, Dr. Mccarty Attending Provider [phone] [place], Dr. Mcgarry Primary Care Provider [place], Dr. Mcgarry Referring Provider Dossi, Dr. Mccarty Attending Provider [phone] Jess RELIGIOUS HEALER, FADUMO Ba Attending Provider Jyoti, Dr. Banuelos Attending Provider [phone] ELLE SANCHEZ Attending Unavailable SAM GREENE Referring Unavailable [facility], IVETTE James Primary Care Unavailable SANCHEZ, ELLE [...] Unavailable SYDNEY, IVETTE James Primary Care Unavailable [place], Dr. Mcgarry Primary Care Provider [place], Dr. Mcgarry Referring Provider Dossi, Dr. Mccarty Attending Provider [phone] [place], Dr. Mcgarry Primary Care Provider [place], Dr. Mcgarry Referring Provider Dossi, Dr. Mccarty Attending Provider [phone] Sydney, Dr. Mcgarry Primary Care Provider [place], Dr. Mcgarry Referring Provider Dossi, Dr. Mccarty Attending Provider [phone] [place], Dr. Mcgarry Primary Care Provider [place], Dr. Mcgarry Referring Provider Dossi, Dr. Mccarty Attending Provider [phone] [place], Dr. Mcgarry Primary Care Provider [place], Dr. Mcgarry Referring Provider Dossi, Dr. Mccarty Attending Provider [phone] Referred, Self Primary Care Provider Unavailabl e Referred, Self Referring Provider Unavailable [facility], Keti Unavailable Dosparam, Dr. Mccarty Attending Provider [phone] Referred, Self Primary Care Provider Unavailabl e Referred, Self Referring Provider Unavailable [place], Dr. Mcgarry Primary Care Provider Jyoti, Dr. Banuelos Attending Provider Dr. Sosa Mendez Referring Provider Dr. Niurka Kendall Emergency Provider Vanessa, Dr. Sosa Chirinos Admit Provider [place], Dr. Sosa Chirinos Attending Provider [phone] [place], Dr. Sosa Chirinos Other Provider Sydney, Dr. Mcgarry Referring Provider Ori, Dr. Mccarty Attending Provider Dossi, Dr. Mccarty Attending Provider Sydney, Dr. Mcgarry Primary Care Provider Dr. Primo Ceron Attending Provider Sydney, Dr. Mcgarry Primary Care Provider Sydney, Dr. Mcgarry Referring Provider Osmany, Dr. Tillman Attending Provider Ivette Grimes MD Primary Care Provider [facility], Keti Unavailable [place] IRON MINER BLASTING.EBD TEACHER, Cindy Unavailable [place] IRON MINER BLASTING.EBD TEACHER, Lubna A Unavailable [place] IRON MINER BLASTING.EBD TEACHER, Lubna A Unavailable [phone] [place] IRON MINER BLASTING.EBD TEACHER, Lubna A Unavailable [phone] Dr. Ivette Grimes MD Primary Care Provider Dr. Sam Pearl MD Attending Provider Dr. Sam Pearl MD Emergency Provider Dr. Ivette Grimes MD Referring Provider Dossi CONCEPCIÓN, Dr. Mccarty Attending Provider Dr. Buddy Hall DO Attending Provider Dr. Buddy Hall DO Emergency Provider Tanya RELIGIOUS HEALER-CJenni Attending Provider Tanya RELIGIOUS HEALER-CJenni Referring Provider Dr. Ivette Grimes MD Attending [...] SYDNEY, IVETTE James Attending Unavailable SYDNEY, IVETTE Jaems Attending Unavailable SYDNEY, IVETTE J Primary Care Unavailable Junaid SHEARER, Brett Other Provider DosBibiana virgen Attending Unavailable Sydney, Ivette Referring Unavailable Sydney, Ivette Primary Care Unavailable Sydney, Ivette Primary Care Unavailable Bibiana Rehman Attending Unavailable [place], Ivette Referring Unavailable [place], Ivette Primary Care Unavailable DosBibiana virgen Attending Unavailable Sydney, Ivette Referring Unavailable Dossi, Bibiana Attending Unavailable Sydney, Ivette Primary Care Unavailable [place], Ivette Referring Unavailable Dossi, Bibiana Attending Unavailable [place], Ivette Referring Unavailable Sydney, Ivette Primary Care Unavailable Mollison, Brett Attending Unavailable Mollison, Brett Referring Unavailable [place], Ivette Primary Care Unavailable Dossi, Bibiana Attending Unavailable Sydney, Ivette Referring Unavailable Sydney, Ivette Primary Care Unavailable Dossi, Bibiana Attending Unavailable [place], Ivette Referring Unavailable [place], Ivette Primary Care Unavailable Dossi, Bibiana Attending Unavailable Sydney, Ivette Referring Unavailable [place], Ivette Primary Care Unavailable Dossi, Bibiana Attending Unavailable Sydney, Ivette Referring Unavailable Sydney, Ivette Primary Care Unavailable Sydney, Ivette Primary Care Unavailable Mollison, Brett Attending Unavailable Sydney, Ivette Referring Unavailable Pina, Abhi Attending Unavailable [place], Ivette Primary Care Unavailable Sydney, Ivette Primary Care Unavailable Mollison, Brett Referring Unavailable Mollison, Brett Attending Unavailable Buddy Hall Attending Unavailable [place], Ivette Primary Care Unavailable Sam Pearl Attending Unavailable Sydney, Ivette Primary Care Unavailable Sydney, Ivette Attending Unavailable Sydney, Ivette Referring Unavailable [place], Ivette Primary Care Unavailable Mollison, Brett Attending Unavailable Mollison, Brett Referring Unavailable Sydney, Ivette Primary Care Unavailable Mollison, Brett Attending Unavailable [place], Ivette Referring Unavailable [place], Ivette Primary Care Unavailable Dossi, Bibiana Attending Unavailable [place], Ivette Referring Unavailable [place], Ivette Primary Care Unavailable Dossi, Bibiana Attending Unavailable [place], Ivette Referring Unavailable Sydney, Ivette Primary Care Unavailable Dossi, Bibiana Attending Unavailable Sydney, Ivette Referring Unavailable [place], Ivette Primary Care Unavailable Sydney, Ivette Primary Care Unavailable Mollison, Brett Referring Unavailable Mollison, Brett Consulting Unavailable Mollison, Brett Attending Unavailable Sydney, Ivette Primary Care Unavailable Mollison, Brett Attending Unavailable [place], Ivette Referring Unavailable Dossi, Bibiana Attending Unavailable [place], Ivette Primary Care Unavailable [place], Ivette Referring Unavailable Dossi, Bibiana Attending Unavailable [place], Ivette Referring Unavailable [place], Ivette Primary Care Unavailable Jenni Martínez Attending Unavailable Jenni Martínez Referring Unavailable [place], Ivette Primary Care Unavailable [place], Ivette Primary Care Unavailable Sydney, Ivette Attending Unavailable Sydney, Ivette Referring Unavailable [place], Ivette Primary Care Unavailable [place], Ivette Attending [...] Unavailable Vin Montes Attending Unavailable Ivette Grimes [facility] Unavailable Allergies Allergy Classification Reported Allergen(s) Allergy Type Date of Onset Reaction(s) Facility (20 sources) Betamethasone; Translations: [BETAMETHASONE DIPROPIONATE] Drug Allergy 12-21-19 [facility] Work Phone: (20 sources) Lidocaine; Translations: [LIDOCAINE] Drug Allergy 12-24-19 [facility] Work Phone: (7 sources) Corticosteroids Allergy to substance 01-01-20 [facility] Work Phone: (20 sources) Glucocorticoid Receptor Agonists Allergy to substance 10-16-20 [facility] (20 sources) dapagliflozin; Translations: [DAPAGLIFLOZIN] Drug Allergy 08-05-20 [facility] (20 sources) metFORMIN; Translations: [METFORMIN] Drug Allergy 08-05-20 [facility] (1 source) Corticosteroids Drug allergy (disorder) 07-05-20 [facility] (1 source) Lidocaine Drug Allergy 07-05-20 [facility] Medications Current Medications Medication Drug Class(es) [...] 12:10am Calculus of kidney Calculus of kidney [id number] actuat albuterol 0.09 mg/actuat metered dose [...] Comment on above: Take 1 tablet by [facility] once daily. FLUoxetine 20 mg oral capsule [...] Comment on above: Take 1 capsule by [facility] once daily for 7 days, THEN 2 capsules once daily. Take 1 capsule by [facility] once daily. gabapentin 300 mg [...] 3:46pm Start: 05-22-2017 take 1 capsule by [facility] three times daily GABAPENTIN 300 MG CAPS 1 po tid GABAPENTIN [id number] Jackson Brown Comment on above: Take 2 [...] spray (20 sources) Anticholinergic Start: 05-02-2023 Ipratropium What Cheer (ATROVENT) 21 mcg (0.03 %) nasal spray Use 2 Sprays in the nose every 12 hours. 30 mL 5 05/02/2023 Active Start: 08-23-2020 Ipratropium Br omide 0.03 % spray,non-aerosol Active 2 NMA INTRANASAL TWICE A DAY as needed for allergies August 23, 2020 12:00am administer into each nostril Start: 08-23-2020 take 1 spray(s) nasa l route twice daily Ipratropium What Cheer Active 2 SPRAY INTRANASAL TWICE A DAY August 23, 2020 12:00am administer into each nostril Start: 03-14-2020 End: 05-01-2023 Ipratropium What Cheer (ATROVEN T) 0.03 % nasal spray Use [...] the CT contrast administration guidelines link. levonorgestrel 0.095195 mg/hr intrauterine system (20 sources) Progestin, Progestin-containing [...] Start: 09-09-2017 JOJO 13.5 MG IUD LEVONORGESTREL [id number] Amparo Hitchcock MD Comment on above: 1 [...] 2021 4:26pm must administer with a meal/food [place]-3 Fatty Acids (Fish Oil Concentrate) 1,000 mg capsule (20 sources) Start: 02-21-2021 take 1 capsule by mouth once daily [place]-3 Fatty Acids (Fish Oil Concentrate) 1,000 mg capsule Active 1000 MG PO DAILY February 21, 2021 9:19am Start: 02-21-2021 End: 10-16-2024 take 1 capsule by mouth once daily [place]-3 Fatty Acids (Fish Oil Concentrate) 1,000 mg capsule Discontinued 1000 mg PO DAILY February 21, 2021 12:00am October 16, 2024 10:15pm supplement Start: 02-21-2021 End: 10-16-2024 take 1 capsule by mouth once daily [place]-3 Fatty Acids (Fish Oil Concentrate) 1,000 mg capsule Discontinued 1000 mg PO DAILY February 21, 2021 12:00am October 16, 2024 10:15pm Start: 02-21-2021 take 1 capsule by mo uth once daily [place]-3 Fatty Acids (Fish Oil Concentrate) 1,000 mg capsule Active 1000 MG PO DAILY February 20, 2021 11:00pm Start: 02-21-2021 take 1 capsule by mo uth once daily [place]-3 Fatty Acids (Fish Oil Concentrate) 1,000 mg [...] every 8 hours as needed for nausea/vomiting. Napfmpoj-Ki-Uqc-Fe -FA tab (20 sources) Start: 1 take 1 tablet by mouth once daily Awmddcim-Tc-Cvs-F e-FA tab Take 1 tablet by mouth once daily. 0 03/14/2011 Active Comment on above: Take 1 tablet by ishmael th once daily. vphoaese-nec-Ai-FA 1 mg capsule (20 sources) Start: 0 take 1 capsule by mouth once daily ftcolzqg-qmq-Jw-F A 1 mg capsule Active 1 CAP PO DAILY April 26, 2020 10:18am Start: 04-26-2020 End: 08-05-2023 take 1 capsule by mouth once daily bdflkqao-yrt-Oh-FA 1 mg capsule Discontinued 1 CAP PO DAILY April 25, 2020 11:00pm August 05, 2023 10:25am Start: 04-26-2020 End: 08-05-2023 take 1 capsule by mouth once daily kryuntqw-ptd-Ur-FA 1 mg capsule Discontinued 1 CAP PO DAILY April 26, 2020 12:00am August 05, 2023 11:25am Start: 04-26-2020 take 1 capsule by mo uth once daily fhyutdcn-jcp-Eh-FA 1 mg capsule Active 1 CAP PO DAILY April 25, 2020 11:00pm Start: 04-26-2020 take 1 capsule by mo uth once daily vgefmmtj-cyq-Gf-FA 1 mg capsule Active 1 CAP PO [...] as needed for muscle spasms TIZANIDINE HCL [id number] Sammy Victor MUSHROOM PICKER-C Start: 04-29-2017 End: 08-10-2022 take 1 tablet by mouth once daily as needed for muscle spasms Tizanidine 4 MG tablet Discontinued 4 mg PO DAILY NEEDED as needed for Muscle Spasm April 29, 2017 12:00am August 10, 2022 3:09pm Start: 04-26-2017 End: 05-06-2017 ZANAFLEX 2 MG CAPS Take 1-2 tablets every 8 hours as needed. TIZANIDINE HCL [id number] Santana IRENE Comment on above: Take 1 [...] Start: 09-09-2017 TROKENDI XR 20 0 MG VI02T-RBU TOPIRAMATE [id number] Amparo Hitchcock MD Start: 09-28-2016 End: 09-09-2017 TOPIRAMATE 15 MG CPSP 11/28 TOPIRAMATE [id number] Santana IRENE Comment on above: Take 1 tablet by ishmael th twice daily. Take 1 tab in AM and 2 tabs in PM. One tab daily Take 1 tablet by ishmael th two times a day. Completed/Discontinued Medications Medication Drug Class(es) Dates Sig (Normalized) Sig (Original) ACETAMINOPHEN CAPS (5 sources) Start: 09-28-2016 End: 09-09-2017 TYLENOL CAPS ACETAMINOPHEN CAPS [id number] Amparo Hitchcock MD Start: 09-28-2016 TYLENOL CAPS 2 ACETAMINOPHEN CAPS [id number] Santana IRENE acetaminophen 325 mg / HYDROcodone [...] one every 6 hours as needed. HYDROCODONE-ACETAMINOPHEN [id number] Santana IRENE amitriptyline hydrochloride 25 mg oral [...] End: 09-09-2017 DIFLUNISAL 500 MG TABS DIFLUNISAL [id number] Raghav IRENE 0.5 ml dulaglutide 1.5 mg/ml [...] Start: 09-28-2016 LORAZEPAM 1 MG TABS LORAZEPAM [id number] Santana IRENE Start: 10-27-2013 End: 04-26-2020 take [...] both ears once daily for 7 days. [place]-3 Fatty Acids (20 sources) Start: 04-26-2020 End: 08-23-2020 take 500 mg by mouth once daily [place]-3 Fatty Acids Discontinued 500 MG PO DAILY April 26, 2020 10:19am August 23, 2020 10:22am Start: 04-26-2020 End: 08-23-2020 take 500 mg by mouth once daily [place]-3 Fatty Acids Discontinued 500 MG PO DAILY April 25, 2020 11:00pm August 23, 2020 9:22am Start: 04-26-2020 End: 08-23-2020 take 500 mg by mouth once daily [place]-3 Fatty Acids Discontinued 500 MG PO DAILY April 26, 2020 12:00am August 23, 2020 10:22am [place]-3 Fatty Acids (FISH OIL) 500 mg cap (20 sources) Start: 10-09-2019 End: 06-07-2025 take 1 capsule by mouth once daily [place]-3 Fatty Acids (FISH OIL) 500 mg cap Take 1 capsule by mouth once daily. 30 capsule 11 10/09/2019 06/07/2025 Discontinued Start: 10-09-2019 take 1 capsule by mo [facility] once daily [place]-3 Fatty Acids (FISH OIL) 500 mg cap Take 1 capsule by mouth once daily. 30 capsule 11 10/09/2019 Active Comment on above: Take 1 capsule by mo [facility] once daily. [place]-3 Fatty Acids 500 mg capsule (13 sources) Start: 0 End: 0 take 1 capsule by mouth once daily [place]-3 Fatty Acids 500 mg capsule Discontinued 500 [...] on above: Take 1 capsule by mo [facility] daily before breakfast. 1/2 hr [...] One tablet by mouth daily PHENTERMINE HCL [id number] Amparo Hitchcock MD potassium chloride 20 meq [...] MG TABS 1 tablet every morning PREDNISONE [id number] Raghav IRENE pregabalin 75 mg oral capsule [...] on pill 3 times per day thereafter Gofefpky-Fm-Ujh-Fe-FA ( FORMULA) ORAL Tab (20 sources) Start: take 1 tablet by mouth once daily Xpesaauc-As-Kpg-Fe-FA ( FORMULA) ORAL Tab Take 1 tablet by mouth once daily. 0 03/14/2011 Active Comment on above: Take 1 tablet by ishmael th once daily. Lhyhyopd-Dyx-Si-Fa 1 mg capsule (13 sources) Start: End: take 1 capsule by mouth once daily Yjeffuog-Nlt-Hh-Fa 1 mg capsule Discontinued 1 NMA PO [...] microalbuminuria, with long-term current use of insulin ([facility]) Inject 1 mg subcutaneously one [...] Obesity, Class III, BMI 40-49.9 (morbid obesity) ([facility]); Translations: [Obesity, Class III, BMI 40-49.9 (morbid obesity) ([facility])] Onset: 01-03-20 Unclassified (1 source) [...] 07-02-2006 07-02-2006 Episodic Other aftercare (1 source) [facility] (current) use of insulin; Translations: [Type 2 [...] 07-05-2025 FINGERSTICK GLU 369 mg/dL High 74-106 [facility] Comment on above: Result Comment: SANTA GEMENT OF PATIENT CARE PER NURSING PROTOCOL Performed By: #### L 100.0100, L503.6005, L500.4050 #### [facility] [address] [place], [address] FINGERSTICK GLU 459 mg/dL Invalid Interpretation Code 74-106 [facility] Comment on above: Result Comment: SANTA GEMENT OF PATIENT CARE PER NURSING PROTOCOL Performed By: #### L 501.080 #### [facility] [address] [place], [address] Beta-Hydroxbytyrateon 2024 BETA-HYDROXYBUT 0.1 mmol/L Normal 0.0-0.3 [facility] Comment on above: Performed By: #### L 100.0100, L503.6005, L500.4050 #### [facility] [address] [place], [address] CBC W/Diff, Automatedon Absolute Lymph 0.99 X10 3/uL Normal 0.83-4.51 [facility] Comment on above: Performed By: #### L 100.0100, L503.6005, L500.4050 #### [facility] [address] [place], [address] Absolute Neut 5.3 X10 3/uL Normal 2.0-7.7 [facility] Comment on above: Performed By: #### L 100.0100, L503.6005, L500.4050 #### [facility] [address] [place], [address] Basophils/100 WBC (Bld) 0.4 % Normal 0-1 [facility] Comment on above: Performed By: #### L 100.0100, L503.6005, L500.4050 #### [facility] [address] [place], [address] Eosinophils/100 WBC (Bld) 0.9 % Normal 0-5 [facility] Comment on above: Performed By: #### L 100.0100, L503.6005, L500.4050 #### [facility] [address] [place], [address] Erythrocyte distribution width (RBC) [Ratio] 13.8 % Normal 11.6-14.6 [facility] Comment on above: Performed By: #### L 100.0100, L503.6005, L500.4050 #### [facility] [address] [place], [address] Hematocrit (Bld) [Volume fraction] 28.2 % Low 37-47 [facility] Comment on above: Performed By: #### L 100.0100, L503.6005, L500.4050 #### [facility] [address] [place], [address] Hemoglobin (Bld) [Mass/Vol] 9.5 g/dL Low 12.0-15.0 [facility] Comment on above: Performed By: #### L 100.0100, L503.6005, L500.4050 #### [facility] [address] [place], [address] IG% 0.900 Normal 0.0-0.9 [facility] Comment on above: Result Comment: IG% - Immature Granulocytes (promyelocytes, myelocytes and metamyelocytes) > 1% indicates that a LEFT SHIFT is Present. Performed By: #### L 100.0100, L503.6005, L500.4050 #### [facility] [address] [place], [address] Lymphocytes/100 WBC (Bld) 14.4 % Low 19-41 [facility] Comment on above: Performed By: #### L 100.0100, L503.6005, L500.4050 #### [facility] [address] [place], [address] MCH (RBC) [Entitic mass] 32.3 pg High 27.0-32.0 [facility] Comment on above: Performed By: #### L 100.0100, L503.6005, L500.4050 #### [facility] [address] [place], [address] MCHC (RBC) [Mass/Vol] 33.7 g/dL Normal 32-36 [facility] Comment on above: Performed By: #### L 100.0100, L503.6005, L500.4050 #### [facility] [address] [place], [address] MCV (RBC) [Entitic vol] 95.9 fL Normal 81-99 [facility] Comment on above: Performed By: #### L 100.0100, L503.6005, L500.4050 #### [facility] [address] [place], [address] Monocytes/100 WBC (Bld) 5.8 % Normal 0-10 [facility] Comment on above: Performed By: #### L 100.0100, L503.6005, L500.4050 #### [facility] [address] [place], [address] Neutrophils/100 WBC (Bld) 77.6 % High 47-70 [facility] Comment on above: Performed By: #### L 100.0100, L503.6005, L500.4050 #### [facility] [address] [place], [address] Nucleated RBC (Bld) [#/Vol] 0 10*3/uL Normal 0-5 [facility] Comment on above: Performed By: #### L 100.0100, L503.6005, L500.4050 #### [facility] [address] [place], [address] Platelet mean volume (Bld) [Entitic vol] 10.4 fL Normal 6.2-12.0 [facility] Comment on above: Performed By: #### L 100.0100, L503.6005, L500.4050 #### [facility] [address] [place], [address] Platelets (Bld) [#/Vol] 136 10*3/uL Low 150-450 [facility] Comment on above: Performed By: #### L 100.0100, L503.6005, L500.4050 #### [facility] [address] [place], [address] RBC (Bld) [#/Vol] 2.94 10*6/uL Low 4.2-5.4 [facility] Comment on above: Performed By: #### L 100.0100, L503.6005, L500.4050 #### [facility] [address] [place], [address] RDW SD 48.8 fl High 35.1-43.9 [facility] Comment on above: Performed By: #### L 100.0100, L503.6005, L500.4050 #### [facility] [address] [place], [address] WBC (Bld) [#/Vol] 6.9 10*3/uL Normal 4.4-11.0 [facility] Comment on above: Performed By: #### L 100.0100, L503.6005, L500.4050 #### [facility] [address] [place], [address] Chest PA and Lateralon 07-05 Chest PA and Lateral [facility] Services [address] [place] [address] Chest PA and Lateral MR#: [id number] Acct: [id number] Name: TORI GRAY Rep #: [id number] : 1980 F 45 From: Kyle Hankins MD PCP: Dr. Ivette Grimes MD Status: REG ER Study: Chest PA and Lateral Date of Exam: 07/05/25 Exam# [id number] Ordering Dr: Abhi Pina MD PROCEDURE: CHEST [...] consolidation or sizable pleural effusion. Reading Location: [id number] CC: Dr. Abhi Pina MD; Dr. Ivette Grimes MD Breakfast Attendant: Signed Normal [facility] Comprehensive Metabolic Prof ilon 07-05-2025 Albumin [Mass/Vol] 3.3 g/dL Low 3.5-5.0 [facility] Comment on above: Performed By: #### L 100.0100, L503.6005, L500.4050 #### [facility] [address] [place], [address] Albumin/Globulin [Mass ratio] 0.9 {ratio} Normal 0.9-2.4 [facility] Comment on above: Performed By: #### L 100.0100, L503.6005, L500.4050 #### [facility] [address] [place], [address] ALK PHOS 183 U/L High 35-104 [facility] Comment on above: Performed By: #### L 100.0100, L503.6005, L500.4050 #### [facility] [address] [place], [address] ALT [Catalytic activity/Vol] 26 U/L Normal <=34 [facility] Comment on above: Performed By: #### L 100.0100, L503.6005, L500.4050 #### [facility] [address] [place], [address] AST [Catalytic activity/Vol] 19 U/L Normal <=31 [facility] Comment on above: Performed By: #### L 100.0100, L503.6005, L500.4050 #### [facility] [address] [place], [address] Bilirubin [Mass/Vol] 0.57 mg/dL Normal 0.00-1.30 [facility] Comment on above: Performed By: #### L 100.0100, L503.6005, L500.4050 #### [facility] [address] [place], [address] BUN/CRE 20.7 RATIO High 10-20 [facility] Comment on above: Performed By: #### L 100.0100, L503.6005, L500.4050 #### [facility] [address] [place], [address] Calcium [Mass/Vol] 8.3 mg/dL Normal 7.6-11.0 [facility] Comment on above: Performed By: #### L 100.0100, L503.6005, L500.4050 #### [facility] [address] [place], [address] Chloride [Moles/Vol] 98 mmol/L Normal 98-108 [facility] Comment on above: Performed By: #### L 100.0100, L503.6005, L500.4050 #### [facility] [address] [place], [address] CO2 [Moles/Vol] 15.0 mmol/L Low 21.0-32.0 [facility] Comment on above: Performed By: #### L 100.0100, L503.6005, L500.4050 #### [facility] [address] [place], [address] Creatinine [Mass/Vol] 1.98 mg/dL High 0.70-1.20 [facility] Comment on above: Performed By: #### L 100.0100, L503.6005, L500.4050 #### [facility] [address] [place], [address] ECRCL 51.75 ml/min Normal 50-250 [facility] Comment on above: Performed By: #### L 100.0100, L503.6005, L500.4050 #### [facility] [address] [place], [address] GAP 15 Normal 5-15 [facility] Comment on above: Performed By: #### L 100.0100, L503.6005, L500.4050 #### [facility] [address] [place], [address] GFR/1.73 sq M.predicted among non-blacks MDRD (S/P/Bld) [Vol rate/Area] 32 mL/min/{1.73_m2} Low >60 [facility] Comment on above: Result Comment: mL/m in/1.73m2 CKD-EPI Creatinine Equation (2020) Performed By: #### L 100.0100, L503.6005, L500.4050 #### [facility] [address] [place], [address] Globulin (S) [Mass/Vol] 3.7 g/dL Normal 2.2-4.2 [facility] Comment on above: Performed By: #### L 100.0100, L503.6005, L500.4050 #### [facility] [address] [place], [address] Glucose [Mass/Vol] 533 mg/dL Invalid Interpretation Code 70-99 [facility] Comment on above: Result Comment: Crit ical Result(s) Called at: 1907 by:??MIGUELITO KELLY TO LIZ CEDILLO Results read back by same. Performed By: #### L 100.0100, L503.6005, L500.4050 #### [facility] [address] [place], [address] Potassium [Moles/Vol] 3.8 mmol/L Normal 3.3-5.1 [facility] Comment on above: Performed By: #### L 100.0100, L503.6005, L500.4050 #### [facility] [address] [place], [address] Sodium [Moles/Vol] 128 mmol/L Low 133-145 [facility] Comment on above: Performed By: #### L 100.0100, L503.6005, L500.4050 #### [facility] [address] [place], [address] T PROT 7.1 g/dL Normal 5.9-8.4 [facility] Comment on above: Performed By: #### L 100.0100, L503.6005, L500.4050 #### [facility] [address] [place], [address] Urea nitrogen [Mass/Vol] 41 mg/dL High 4-19 [facility] Comment on above: Performed By: #### L 100.0100, L503.6005, L500.4050 #### [facility] [address] [place], [address] Electrolyte Panelon 07-05-20 25 Chloride [Moles/Vol] 101 mmol/L Normal 98-108 [facility] Comment on above: Performed By: #### L 100.0100, L503.6005, L500.4050 #### [facility] [address] [place], [address] CO2 [Moles/Vol] 17.3 mmol/L Low 21.0-32.0 [facility] Comment on above: Performed By: #### L 100.0100, L503.6005, L500.4050 #### [facility] [address] [place], [address] GAP 11 Normal 5-15 [facility] Comment on above: Performed By: #### L 100.0100, L503.6005, L500.4050 #### [facility] [address] [place], [address] Potassium [Moles/Vol] 3.6 mmol/L Normal 3.3-5.1 [facility] Comment on above: Performed By: #### L 100.0100, L503.6005, L500.4050 #### [facility] [address] [place], [address] Sodium [Moles/Vol] 130 mmol/L Low 133-145 [facility] Comment on above: Performed By: #### L 100.0100, L503.6005, L500.4050 #### [facility] [address] [place], [address] Lactic Acidon 07-05-2025 Lactate [Moles/Vol] 2.2 mmol/L Invalid Interpretation Code 0.0-2.0 [facility] Comment on above: Order Comment: Y Result Comment: Crit ical Result(s) Called at: 1907 by:??MIGUELITO KELLY TO LIZ CEDILLO Results read back by same. Performed By: #### L 100.0100, L503.6005, L500.4050 #### [facility] [address] [place], [address] Magnesiumon 07-05-2025 Magnesium [Mass/Vol] 2.2 mg/dL Normal 1.5-2.2 [facility] Comment on above: Performed By: #### L 100.0100, L503.6005, L500.4050 #### [facility] [address] [place], [address] Phosphoruson 07-05-2025 Phosphate [Mass/Vol] 3.0 mg/dL Normal 2.7-4.5 [facility] Comment on above: Performed By: #### L 100.0100, L503.6005, L500.4050 #### [facility] [address] [place], [address] Urinalysis, Completeon 07-05 BACTERIA 3+ /hpf Normal None Seen [facility] Comment on above: Order Comment: CLEAN CATCH Performed By: #### L 100.0100, L503.6005, L500.4050 #### [facility] [address] [place], [address] EPI,SQUAMOUS 5-10 SEEN Normal 5-10 [facility] Comment on above: Order Comment: CLEAN CATCH Performed By: #### L 100.0100, L503.6005, L500.4050 #### [facility] [address] [place], [address] RBC 5-10 SEEN Normal 0-5 [facility] Comment on above: Order Comment: CLEAN CATCH Performed By: #### L 100.0100, L503.6005, L500.4050 #### [facility] [address] [place], [address] WBC 10-25 SEEN Normal 0-5 [facility] Comment on above: Order Comment: CLEAN CATCH Performed By: #### L 100.0100, L503.6005, L500.4050 #### [facility] [address] [place], [address] Mucus Ql (Urine sed) 0 SEEN Normal [facility] Comment on above: Order Comment: CLEAN CATCH Performed By: #### L 100.0100, L503.6005, L500.4050 #### [facility] [address] [place], [address] Venous Blood Gason 5 Blood Gas Type SHIRA [facility] Comment on above: Performed By: #### L 9000.0810 ####[facility] [address] [place], [address] CO2 [Moles/Vol] 17 mmol/L Low 23-33 [facility] Comment on above: Performed By: #### L 9000.0810 ####[facility] [address] [place], [address] HCO3 (Bld) [Moles/Vol] 16 mmol/L Low 22-26 [facility] Comment on above: Performed By: #### L 9000.0810 ####[facility] [address] [place], [address] O2 Delivery Dev Not entered [facility] Comment on above: Performed By: #### L 9000.0810 ####[facility] [address] [place], [address] SITE Not entered [facility] Comment on above: Performed By: #### L 9000.0810 ####[facility] [address] [place], [address] VBG BE -10 mmol/L Low -1.0-3.5 [facility] Comment on above: Performed By: #### L 9000.0810 ####[facility] [address] [place], [address] VBG pCO2 31.6 mmHg Low 41-51 [facility] Comment on above: Performed By: #### L 9000.0810 ####[facility] [address] [place], [address] VBG pH 7.32 Normal 7.32-7.42 [facility] Comment on above: Performed By: #### L 9000.0810 ####[facility] [address] [place], [address] VBG PO2 77 mmHg High 25-40 [facility] Comment on above: Performed By: #### L 9000.0810 ####[facility] [address] [place], [address] VBG SO2 94 High 50-70 [facility] Comment on above: Performed By: #### L 9000.0810 ####[facility] [address] [place], [address] Orthopedic Visit Reporton Orthopedic Visit Report [facility] [address] [place] [address] OFFICE VISIT Date of Service: 06/25/25 MR#: [id number] Acct: [id number] Name: TORI GRAY Rep #: [id number] : 1980 Provider: Dr. Brett kessler MD Age/Sex: 45/F Location: [facility] Status: Signed Intake Vital Signs 05/06/25 10:04 [...] Yes HPI (more content not included)... Normal [facility] Bedside Glucoseon 06-23-2025 FINGERSTICK GLU 210 mg/dL High 74-106 [facility] Comment on above: Result Comment: [place] OF PATIENT CARE PER NURSING PROTOCOL Performed By: #### L 501.080 #### [facility] [address] [place], [address] Discharge Instructionon 06-05 Discharge Instruction [facility] Medical Records Department [address] [place] [address] Instructions for Home/Discharge Instructions 06/23/25 0836 MR#: [id number] Acct: [id number] Name: TORI GRAY Rep #: [id number] : 1980 45 From: Brett Quiroga MD PCP: Dr. Ivette Grimes MD Status:REG [facility] Discharge Instructions Diet Discharge Diet: No restrictions [...] Patient Instructions: After Shoulder Arthroscopy Print Language: [place] Discharge Orders/Prescription s Prescriptions: New oxycodone-acetamino phen [...] CC: Dr. Ivette Grimes MD Signed Normal [facility] Gl[facility] deOrdered By: Brett Quiroga on 06-23-2025 Glucose [Mass/Vol] 210 mg/dL High 74-106 [facility] Comment on above: MANAGEMENT OF PATIEN T CARE PER NURSING PROTOCOL MR/POSTOP.ANEon 06-23-2025 MR/POSTOP.[facility] Medical Records Department [address] [place] [address] Anesthesia Postop Eval I 06/23/25 0857 MR#: [id number] Acct: [id number] Name: TORI GRAY Rep #: [id number] : 1980 45 From: Ankur Templeton CRNA PCP: Dr. Ivette Grimes MD Status:REG [facility] Y Race: C Location: [place] [address] Anesthesia: Postop Eval I Current Vital Signs Temperature: 97.8 F Pulse Rate: 74 Blood Pressure: 114/70 Respiratory Rate: 16 Pulse Ox: 94 Assessment Airway patent: Yes Spontaneous unlabored respirations: Yes nausea: No Vomiting: No Anesthesia Complication: No Fluid Hydration Crystalloid volume administer (ml): 800 Total IV fluid infused: 800 Progress Note Anesthesia document: Postop Eval 1 completed: Yes 06/23/25857 Date Ankur Templeton MAMMAL CONTROL AGENT Cosigner Signature: Date CC: Signed Normal [facility] Operative Reporton 5 Operative Report [facility] Medical Records Department [address] [place] [address] Operative Report 06/23/25 0831 MR#: [id number] Acct: [id number] Name: TORI GRAY Rep #: [id number] : 1980 45 From: Brett Quiroga MD PCP: Dr. Ivette Grimes MD Status:REG [facility] Location: [address] 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 organisation and methods analyst: Yes [employer]: jamila Tasks completed by certified registered dental assistant: Retracting Additional reference assistant?: No Type of Anesthesia: Block,Regional and [...] home according to day surgery criteria. CPT 00[address], [address] Surgical Findings: As above Complications Complications: No Admit VTE Documentation VTE Present on Admission: No VTE Mechan Device Prophylaxis: SCD's VTE Pharm Prophylaxis ordered?: No Reason prophylaxis not ordered: Treatment Not Indicated 06/23/25 0836 Cosigner Signature (if applicable): CC: Dr. Brett Quiroga MD; Dr. Ivette Grimes MD Signed Normal [facility] ,Urineon 06-23-2025 Beta HCG ( test) Ql (U) Negative Normal [facility] Comment on above: Result Comment: Very dilute urine specimens, as indicated by a low specific gravity, may not contain account development representative levels of hCG. If is still suspected, a first morning urine specimen should be collected 48 hours later and tested. Performed By: #### L 400.7600 #### [facility] [address] [place], [place], [address] Urine testOrdered By: Woody Choudhary on 06-23-2025 HCG ( test) Ql (U) Negative [facility] Comment on above: Very dilute urine sp ecimens, as indicated by a low specificgravity, may not contain account development representative levels of hCG. If is still suspected, a first morning urinespecimen should be collected 48 hours later and tested. Chiropractic Reporton 2024 Chiropractic Report [facility] [address] [place] [id number] OFFICE VISIT Date of Service: 06/17/25 MR#: [id number] Acct: [id number] Name: TORI GRAY Rep #: [id number] : 1980 Provider: CONCEPCIÓN Montgomery Age/Sex: 45/F Location: [facility] Status: Signed Intake Vital Signs [...] continues to (more content not included)... Normal [facility] MR/PAT.Boom 06-15-2025 MR/PAT.MAIN [facility] Medical Records Department [address] [place] [address] PAT - Anesthesia 06/15/25 1647 MR#: [id number] Acct: [id number] Name: TORI GRAY Rep #: [id number] : 1980 45 From: Newton Preciado MD PCP: Dr. 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: Anesthesia History - supervisor spring up Hx Hospitalization No 06/10/25 09:08 Any Problems [...] take am of surgery PONV PONV - supervisor spring up: PONV - supervisor spring up Female Yes 06/10/25 09:08 HX of Motion [...] 05/06/25 10:04 Respiratory Assessment Respiratory Assessment - supervisor spring up: Respiratory Tract Infection Hx - supervisor spring up Hx Respiratory Tract Infection No 06/10/25 09:08 STOP Sleep Apnea STOP Sleep Apnea - supervisor spring up: STOP Sleep Apnea - supervisor spring up Hx Hypertension No: LISINOPRIL FOR LIVER 06/10/25 [...] Tobacco Use History Tobacco Use History - supervisor spring up: Tobacco Use History - supervisor spring up Tobacco Use Non-smoker 03/09/25 09:20 Smoking Status Never smoker 06/10/25 09:08 Hx Tobacco Use No 06/10/25 09:08 Years Smoking Packs Smoked per Day Smoking Cessation Date was within the last 15 years Hx Smoking Cessation Date Hx Smoking Cessation Counseling Hematologic Medial History Hematologic Hx - supervisor spring up: 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 Normal [facility] Electrocardiogram reportOrde red By: Vin Montes on 06-11-2025 EKG study [facility] Cardiovascular Services [address] [place] [address] 12 Lead EKG 06/10/25 1247 MR#: [id number] Acct: [id number] Name: TORI GRAY Rep #:[id number] : 1980 44 From: Vin Montes MD Attending Dr: Dr. Brett Quiroga MD Status: PRE [facility] Ordering Dr: Woody Choudhary MD Date: Location: [facility] Sex: F C Admitted: Test Reason : [...] ECG Confirmed by JYOTI SHEARER, VIN ([id number]), newspaper or periodical editor PRISCILA FERRERA ([id number]) on 06/11/2025 5:54:48 AM Referred By: Brett Quiroga Confirmed By: VIN MONTES MD 06/11/25 0554 Date _ Vin Montes MD CC: Dr. Woody Choudhary MD; Dr. Brett Quiroga MD; Dr. Ivette Grimes MD ~ Signed [facility] Work Phone: 12 Lead EKGon 06-10-2025 12 Lead EKG [facility] Cardiovascular Services [address] [place] [address] 12 Lead EKG 06/10/25 1247 MR#: [id number] Acct: [id number] Name: TORI GRAY Rep #: [id number] : 1980 44 From: Vin Montes MD Attending Dr: Dr. Brett Quiroga MD Status: MD E [facility] Ordering Dr: Woody Choudhary MD Date: 06/10/25 Location: [facility] Sex: F C Admitted: Test Reason : [...] Abnormal ECG Confirmed by JYOTI SHEARER, VIN ([id number]), newspaper or periodical editor PRISCILA FERRERA ([id number]) on 06/11/2025 5:54:48 AM Referred By: Brett Quiroga Confirmed By: VIN MONTES MD 06/11/25 0554 Date Vin Montes MD CC: Dr. Woody Choudhary MD; Dr. Brett Quiroga MD; Dr. Ivette Grimes MD Signed Normal [facility] LDL CHOLESTEROL DIRECT (FOR REMOTE [facility] USE)on 06-10-2025 [facility] LDL, Directon 06-10-2025 Cholesterol in LDL [Mass/Vol] 96 mg/dL Normal 0-99 [facility] Comment on above: Result Comment: Perf ormed at: CB - [facility] [address] [id number] Warehouse Administrator: José Antonio Aldana PhD, Phone: [phone] Performed By: #### L 501.9985, B2473.6154 ####[facility] [address] [place], [address] COMMENT TNP Normal . [facility] Comment on above: Performed By: #### L 501.9985, L3442.5319 ####[facility] [address] [place], [address] CNPNon 06-09-2025 [facility] Telephone (FAMPWS) ---- TORI GRAY ([id number]) 1980 F Date Time Provider Department 06/09/25 IVETTE GRIMES [facility] During your visit today, we recorded the following information about you: Nirmala Storey LPN 06/09/2025 10:21 AM Signed HgbA1C from [facility] 7.4 Ivette Grimes MD 06/09/2025 10:49 AM Signed Lets increase the ozempic to 2 mg a day. Call sugars in two weeks. Watch the diet. Nirmala Storey LPN 06/09/2025 3:25 PM Addendum [employer] message sent to the patient. Juliana Murphy [...] microalbuminuria, with long-term current use of insulin ([facility]) [E11.29, R80.9, Z79.4] Order(s):HBA1C (OUTSIDE) [7832340] Order #: [id number] semaglutide (OZEMPIC) 2 mg/dose (8 mg/3 mL) pen injectorInject 2 mg subcutaneously one time a week.Disp: 3 mLRfl: 5 LDL CHOLESTEROL DIRECT (FOR REMOTE [facility] USE) [SQRLDL] Order #: [id number] Prescriptions as of 06/18/2025 - omeprazole (PRILOSEC) [...] tablet by mouth once daily. - Ipratropium What Cheer (ATROVENT) 21 mcg (0.03 %) nasal spray [...] DM - Controlled E11.9 Insulin: No - Jfghbiuh-Ks-Dgw-Fe- FA tab Take 1 tablet by mouth [...] 05/06/2009 01/23/2010 Routine general medical examination at [facility]*01/23/2010 12/06/2012 Class: Chronic Routine gynecological examination [Z01.419] 01/23/2010 02/22/2014 Class: Chronic Morbid obesity (HCC) [E66.01] 01/23/2010 06/07/2025 Lumbar Disc Disorder [M51.9] 02/16/2010 Routine general medical examination at [facility]*12/06/2012 02/22/2014 Anxiety [F41.9] 06/07/2014 Type [...] [I10] 10/ (more content not included)... Normal [facility] Cholesterol in LDL Direct as say [Mass/Vol]Ordered By: Ivette Grimes on 06-09-2025 Cholesterol in LDL [Mass/Vol] 96 mg/dL 0-99 [facility] Comment on above: Performed at: [facility] [address] [id number] Director: José Antonio Aldana PhD, Phone: [phone] HBA1C (OUTSIDE)on 06-09-2025 [facility] Hemoglobin A1con 06-09-2025 HbA1c (Bld) [Mass fraction] 7.4 % High <=5.6 [facility] Comment on above: Result Comment: Norm al < 5.7 % Prediabetic 5.7 - 6.4 % Diabetic >or= 6.5 % Please note range changes. Performed By: #### L 501.9985, L3300.4490 ####[facility] [address] [place], [address] Hemoglobin A1c percentageOrd ered By: Ivette Grimes on 06-09-2025 HbA1c (Bld) [Mass fraction] 7.4 % High <5.7 [facility] Comment on above: Normal < 5.7 % Predi abetic 5.7 - 6.4 % Diabetic >or= 6.5 % Please note range changes. Laboratory - Miscellaneous t estsOrdered By: Ivette Grimes on 06-09-2025 Service comment (Unsp spec) [Interp] TNP [facility] Comment on above: Test not performed CNOVon 06-07-2025 CNOV Office Visit (FAMPWS) ---- TORI GRAY ([id number]) 1980 F Date Time Provider Department 06/07/25 [...] with Dr. Quiroga on June 23 at [facility]. - Keep your neurology appointment on [...] for June [address] Quiroga at [facility]. - Follow-up appointment with Dr. Camacho [...] 1 tablet by mouth once daily. Ipratropium What Cheer (ATROVENT) 21 mcg (0.03 %) nasal spray [...] 1 Each by INTRAUTERINE route as directed. Qkdrdrtw-Tf-Xdk-Fe- FA tab Take 1 tablet by mouth [...] blood sugar(s) (more content not included)... Normal [facility] Absolute lymphocyte countOrd ered By: HEALTH ASSESSMENT on 06-05-2025 Lymphocytes Auto (Unsp spec) [#/Vol] 2.43 10*3/uL 0.83-4.51 [facility] Absolute neutrophil countOrd ered By: HEALTH ASSESSMENT on 06-05-2025 Neutrophils (Bld) [#/Vol] 6.3 10*3/uL 2.0-7.7 [facility] Absolute nucleated red blood cell countOrdered By: HEALTH ASSESSMENT on 06-05-2025 Nucleated RBC (Bld) [#/Vol] 0.00 10*3/uL 0-5 [facility] Anion gap in Serum or Plasma Ordered By: HEALTH ASSESSMENT on 06-05-2025 Anion gap [Moles/Vol] 14 mmol/L 5-15 [facility] BUN/creatinine ratioOrdered By: HEALTH ASSESSMENT on 06-05-2025 Urea nitrogen/Creatinine [Mass ratio] 10.6 mg/mg 10-20 [facility] Bilirubin Test strip Ql (U)O rdered By: HEALTH ASSESSMENT on 06-05-2025 Bilirubin Ql (U) Negative Negative [facility] Bilirubin directOrdered By: HEALTH ASSESSMENT on 06-05-2025 Bilirubin.direct [Mass/Vol] 0.20 mg/dL 0.00-0.30 [facility] Bilirubin, totalOrdered By: HEALTH ASSESSMENT on 06-05-2025 Bilirubin [Mass/Vol] 0.51 mg/dL 0.00-1.30 [facility] CBC, Employeeon 06-05-2025 Absolute Lymph 2.43 X10 3/uL Normal 0.83-4.51 [facility] Comment on above: Performed By: #### L 501.080 #### [facility] [address] [place], [address] Absolute Neut 6.3 X10 3/uL Normal 2.0-7.7 [facility] Comment on above: Performed By: #### L 501.080 #### [facility] [address] [place], [address] Basophils/100 WBC (Bld) 0.9 % Normal 0-1 [facility] Comment on above: Performed By: #### L 501.080 #### [facility] [address] [place], [address] Eosinophils/100 WBC (Bld) 1.8 % Normal 0-5 [facility] Comment on above: Performed By: #### L 501.080 #### [facility] [address] [place], [address] Erythrocyte distribution width (RBC) [Ratio] 14.5 % Normal 11.6-14.6 [facility] Comment on above: Performed By: #### L 501.080 #### [facility] [address] [place], [address] Hematocrit (Bld) [Volume fraction] 39.2 % Normal 37-47 [facility] Comment on above: Performed By: #### L 501.080 #### [facility] [address] [place], [address] Hemoglobin (Bld) [Mass/Vol] 13.5 g/dL Normal 12.0-15.0 [facility] Comment on above: Performed By: #### L 501.080 #### [facility] [address] [place], [address] Lymphocytes/100 WBC (Bld) 25.5 % Normal 19-41 [facility] Comment on above: Performed By: #### L 501.080 #### [facility] [address] [place], [address] MCH (RBC) [Entitic mass] 32.4 pg High 27.0-32.0 [facility] Comment on above: Performed By: #### L 501.080 #### [facility] [address] [place], [address] MCHC (RBC) [Mass/Vol] 34.4 g/dL Normal 32-36 [facility] Comment on above: Performed By: #### L 501.080 #### [facility] [address] [place], [address] MCV (RBC) [Entitic vol] 94.0 fL Normal 81-99 [facility] Comment on above: Performed By: #### L 501.080 #### [facility] [address] [place], [address] Monocytes/100 WBC (Bld) 3.6 % Normal 0-10 [facility] Comment on above: Performed By: #### L 501.080 #### [facility] [address] [place], [address] Neutrophils/100 WBC (Bld) 66.2 % Normal 47-70 [facility] Comment on above: Performed By: #### L 501.080 #### [facility] [address] [place], [address] NRBC # 0.00 10 3/uL Normal 0-5 [facility] Comment on above: Performed By: #### L 501.080 #### [facility] [address] [place], [address] Nucleated RBC (Bld) [#/Vol] 0 10*3/uL Normal 0-5 [facility] Comment on above: Performed By: #### L 501.080 #### [facility] [address] [place], [address] Platelet mean volume (Bld) [Entitic vol] 9.6 fL Normal 6.2-12.0 [facility] Comment on above: Performed By: #### L 501.080 #### [facility] [address] [place], [address] Platelets (Bld) [#/Vol] 192 10*3/uL Normal 150-450 [facility] Comment on above: Performed By: #### L 501.080 #### [facility] [address] [place], [address] RBC (Bld) [#/Vol] 4.17 10*6/uL Low 4.2-5.4 [facility] Comment on above: Performed By: #### L 501.080 #### [facility] [address] [place], [address] RDW SD 49.7 fl High 35.1-43.9 [facility] Comment on above: Performed By: #### L 501.080 #### [facility] [address] [place], [address] WBC (Bld) [#/Vol] 9.5 10*3/uL Normal 4.4-11.0 [facility] Comment on above: Performed By: #### L 501.080 #### [facility] [address] [place], [address] Calculated very low density lipoprotein (VLDL) cholesterol measurementOrdered By: HEALTH ASSESSMENT on 06-05-2025 Calculated very low density lipoprotein (VLDL) cholesterol measurement 62 mg/dL High 5-40 [facility] Carbon dioxide, total [Moles /volume] in Central venous bloodOrdered By: HEALTH ASSESSMENT on 06-05-2025 CO2 [Moles/Vol] 17.5 mmol/L Low 21.0-32.0 [facility] Chloride assayOrdered By: HE ALTH ASSESSMENT on 06-05-2025 Chloride [Moles/Vol] 105 mmol/L 98-108 [facility] Employee Profileon LDH 188 U/L Normal 84-246 [facility] Comment on above: Performed By: #### L 501.080 #### [facility] [address] [place], [address] Phosphate [Mass/Vol] 2.2 mg/dL Low 2.7-4.5 [facility] Comment on above: Performed By: #### L 501.080 #### [facility] [address] [place], [address] URIC 6.9 mg/dL High 2.6-6.0 [facility] Comment on above: Result Comment: The drugs N-Acetylcysteine and Metamizole may falsely depress this assay. Performed By: #### L 501.080 #### [facility] [address] [place], [address] Erythrocyte distribution wid th ratioOrdered By: HEALTH ASSESSMENT on 06-05-2025 Erythrocyte distribution width (RBC) [Ratio] 14.5 % 11.6-14.6 [facility] Erythrocyte distribution wid th standard deviationOrdered By: HEALTH ASSESSMENT on 06-05-2025 Erythrocyte distribution width (RBC) [Ratio] 49.7 fl High 35.1-43.9 [facility] Glomerular filtration rate ( GFR) estimation/1.73 sq m using serum, plasma, or whole bOrdered By: HEALTH ASSESSMENT on 06-05-2025 GFR/1.73 sq M.predicted among non-blacks MDRD (S/P/Bld) [Vol rate/Area] 94 mL/min/{1.73_m2} >60 [facility] Comment on above: mL/min/1.73m2 CKD-EP I Creatinine Equation (2020) Hematocrit Auto (Bld) [Volum e fraction]Ordered By: HEALTH ASSESSMENT on 06-05-2025 Hematocrit (Bld) [Volume fraction] 39.2 % 37-47 [facility] Hemoglobin measurementOrdere d By: HEALTH ASSESSMENT on 06-05-2025 Hemoglobin (Bld) [Mass/Vol] 13.5 g/dL 12.0-15.0 [facility] Ketones Test strip Ql (U)Ord ered By: HEALTH ASSESSMENT on 06-05-2025 Ketones Ql (U) Negative Negative [facility] LDL calc ser/plasOrdered By: HEALTH ASSESSMENT on 06-05-2025 Cholesterol in LDL [Mass/Vol] 92 mg/dL [facility] Comment on above: Itpqykatkb=249-599 m g/dL & Higher Kvbn=810 mg/dL or greaterFriedwald Equation for LDL-C Laboratory - Chemistry and C hemistry - challengeOrdered By: HEALTH ASSESSMENT on 06-05-2025 AST [Catalytic activity/Vol] 41 U/L High <32 [facility] Lactate dehydrogenase (LDH) measurementOrdered By: HEALTH ASSESSMENT on 06-05-2025 LDH [Catalytic activity/Vol] 188 U/L 84-246 [facility] MCV (mean corpuscular volume ) determinationOrdered By: HEALTH ASSESSMENT on 06-05-2025 MCV (RBC) [Entitic vol] 94.0 fL 81-99 [facility] Mean corpuscular hemoglobin (MCH) determinationOrdered By: HEALTH ASSESSMENT on 06-05-2025 MCH (RBC) [Entitic mass] 32.4 pg High 27.0-32.0 [facility] Mean corpuscular hemoglobin concentration (MCHC) determinationOrdered By: HEALTH ASSESSMENT on 06-05-2025 MCHC (RBC) [Mass/Vol] 34.4 g/dL 32-36 [facility] Mean platelet volume determi nationOrdered By: HEALTH ASSESSMENT on 06-05-2025 Platelet mean volume (Bld) [Entitic vol] 9.6 fL 6.2-12.0 [facility] Neutrophil percentageOrdered By: HEALTH ASSESSMENT on 06-05-2025 Neutrophils/100 WBC (Bld) 66.2 % 47-70 [facility] Nitrite Test strip Ql (U)Ord ered By: HEALTH ASSESSMENT on 06-05-2025 Nitrite Ql (U) Negative Negative [facility] Nucleated red blood cell per centageOrdered By: HEALTH ASSESSMENT on 06-05-2025 Nucleated RBC/100 WBC (Bld) [Ratio] 0 % 0-5 [facility] Platelet countOrdered By: HE ALTH ASSESSMENT on 06-05-2025 Platelets (Bld) [#/Vol] 192 10*3/uL 150-450 [facility] Potassium measurement (mass/ volume)Ordered By: HEALTH ASSESSMENT on 06-05-2025 Potassium (Unsp spec) [Mass/Vol] 4.0 mmol/L 3.3-5.1 [facility] Protein Test strip Ql (U)Ord ered By: HEALTH ASSESSMENT on 06-05-2025 Protein Ql (U) 100 mg/dl High Negative [facility] RBC Auto (Bld) [#/Vol]Ordere d By: HEALTH ASSESSMENT on 06-05-2025 RBC (Bld) [#/Vol] 4.17 10*6/uL Low 4.2-5.4 [facility] Screening total cholesterol/ high density lipoprotein (HDL) cholesterol ratioOrdered By: HEALTH ASSESSMENT on 06-05-2025 Cholesterol.total/Choles terol in HDL [Mass ratio] 5.63 {ratio} [facility] Serum creatinine measurement (mass/volume)Ordered By: HEALTH ASSESSMENT on 06-05-2025 Creatinine [Mass/Vol] 0.80 mg/dL 0.70-1.20 [facility] Serum globulin measurementOr dered By: HEALTH ASSESSMENT on 06-05-2025 Globulin (S) [Mass/Vol] 3.3 g/dL 2.2-4.2 [facility] Serum glucose measurement (m ass/volume)Ordered By: HEALTH ASSESSMENT on 06-05-2025 Glucose [Mass/Vol] 210 mg/dL High 70-99 [facility] Serum or plasma alanine arizmendi otransferase (ALT) measurementOrdered By: HEALTH ASSESSMENT on 06-05-2025 ALT [Catalytic activity/Vol] 43 U/L High <35 [facility] Serum or plasma albumin sharron urement (mass/volume)Ordered By: HEALTH ASSESSMENT on 06-05-2025 Albumin [Mass/Vol] 4.2 g/dL 3.5-5.0 [facility] Serum or plasma albumin/glob ulin mass ratioOrdered By: HEALTH ASSESSMENT on 06-05-2025 Albumin/Globulin [Mass ratio] 1.3 {ratio} 0.9-2.4 [facility] Serum or plasma alkaline toyin sphatase measurementOrdered By: HEALTH ASSESSMENT on 06-05-2025 ALP [Catalytic activity/Vol] 84 U/L 35-104 [facility] Serum or plasma calcium sharron urement (mass/volume)Ordered By: HEALTH ASSESSMENT on 06-05-2025 Calcium [Mass/Vol] 8.8 mg/dL 7.6-11.0 [facility] Serum or plasma cholesterol in HDL measurement (mass/volume)Ordered By: HEALTH ASSESSMENT on 06-05-2025 Cholesterol in HDL [Mass/Vol] 33 mg/dL Low >40 [facility] Comment on above: National Cholesterol Education Program (NCEP) guidelines:<40 mg/dL: Low HDL-cholesterol (major risk factor for CHD)>= 60 mg/dL: High HDL-cholesterol (negative risk factor for CHD)HDL-cholesterol is affected by a number of factors, e.g. smoking, exercise, hormones, sex and age. Serum or plasma cholesterol measurement (mass/volume)Ordered By: HEALTH ASSESSMENT on 06-05-2025 Cholesterol [Mass/Vol] 187 mg/dL <201 [facility] Comment on above: Cholesterol level, D esirable <200 mg/dLBorderline high cholesterol 200-239 mg/dLHigh cholesterol >=240 mg/dLRecommendations of the NCEP Adult Treatment Panel for the following risk-cutoff thresholds for the [place] population. Serum or plasma urea nitroge n measurement (mass/volume)Ordered By: HEALTH ASSESSMENT on 06-05-2025 Urea nitrogen [Mass/Vol] 9 mg/dL 4-19 [facility] Serum or plasma uric acid me asurement (mass/volume)Ordered By: HEALTH ASSESSMENT on 06-05-2025 Urate [Mass/Vol] 6.9 mg/dL High 2.6-6.0 [facility] Comment on above: The drugs N-Acetylcy steine and Metamizole may falsely depress this assay. Sodium levelOrdered By: HEAL TH ASSESSMENT on 06-05-2025 Sodium [Moles/Vol] 137 mmol/L 133-145 [facility] Total proteinOrdered By: CARLEEN LT ASSESSMENT on 06-05-2025 Protein [Mass/Vol] 7.5 g/dL 5.9-8.4 [facility] Triglycerides measurementOrd ered By: HEALTH ASSESSMENT on 06-05-2025 Triglyceride [Mass/Vol] 310 mg/dL High <199 [facility] Comment on above: The drugs N-Acetylcy steine and Metamizole may falsely depress this assay. Normal range: <150 mg/dLBorderline High: 150-199 mg/dLHigh: 200-499 mg/dLVery High: >500 mg/dL Urinalysis, Employeeon 06-05 BILIRUBIN URINE Negative Normal Negative [facility] Comment on above: Order Comment: Urine , Random Performed By: #### L 501.080 #### [facility] [address] [place], [address] Clarity (U) Sl. Cloudy Normal Clear [facility] Comment on above: Order Comment: Urine , Random Performed By: #### L 501.080 #### [facility] [address] [place], [address] Color (U) Yellow Normal Yellow [facility] Comment on above: Order Comment: Urine , Random Performed By: #### L 501.080 #### [facility] [address] [place], [address] GLUCOSE, UR Normal Normal Normal [facility] Comment on above: Order Comment: Urine , Random Performed By: #### L 501.080 #### [facility] [address] [place], [address] KETONE UR Negative Normal Negative [facility] Comment on above: Order Comment: Urine , Random Performed By: #### L 501.080 #### [facility] [address] [place], [address] LEUK ESTERASE 500 /ul Abnormal Negative [facility] Comment on above: Order Comment: Urine , Random Performed By: #### L 501.080 #### [facility] [address] [place], [address] Nitrite Ql (U) Negative Normal Negative [facility] Comment on above: Order Comment: Urine , Random Performed By: #### L 501.080 #### [facility] [address] [place], [address] OCCULT BLOOD-UR 25 /ul Abnormal Negative [facility] Comment on above: Order Comment: Urine , Random Performed By: #### L 501.080 #### [facility] [address] [place], [address] pH UR 6.0 Normal 5.0 - 8.0 [facility] Comment on above: Order Comment: Urine , Random Performed By: #### L 501.080 #### [facility] [address] [place], [address] PROT DIPSTX 100 mg/dl Abnormal Negative [facility] Comment on above: Order Comment: Urine , Random Performed By: #### L 501.080 #### [facility] [address] [place], [address] SP.GR. DIPSTX 1.015 Normal 1.002-1.030 [facility] Comment on above: Order Comment: Urine , Random Performed By: #### L 501.080 #### [facility] [address] [place], [address] UROBILI Normal Normal Normal [facility] Comment on above: Order Comment: Urine , Random Performed By: #### L 501.080 #### [facility] [address] [place], [address] Urine clarityOrdered By: A [facility] ASSESSMENT on 06-05-2025 Clarity (U) Sl. Cloudy Clear [facility] Urine color determinationOrd ered By: HEALTH ASSESSMENT on 06-05-2025 Color (U) Yellow Yellow [facility] Urine glucose detectionOrder ed By: HEALTH ASSESSMENT on 06-05-2025 Glucose Ql (U) Normal mg/dl Normal [facility] Urine leukocyte esterase det ection by dipstickOrdered By: HEALTH ASSESSMENT on 06-05-2025 Leukocyte esterase Test strip Ql (U) 500 /ul High Negative [facility] Urine pHOrdered By: HEALTH A SSESSMENT on 06-05-2025 pH (U) 6.0 [pH] 5.0 - 8.0 [facility] Urine specific gravity measu rementOrdered By: HEALTH ASSESSMENT on 06-05-2025 Specific gravity (U) [Rel density] 1.015 1.002-1.030 [facility] Urine urobilinogen measureme ntOrdered By: HEALTH ASSESSMENT on 06-05-2025 Urobilinogen Ql (U) Normal mg/dl Normal [facility] White blood cell (WBC) count Ordered By: HEALTH ASSESSMENT on 06-05-2025 WBC (Bld) [#/Vol] 9.5 10*3/uL 4.4-11.0 [facility] Chiropractic Reporton 2024 Chiropractic Report [facility] [address] [place] [address] OFFICE VISIT Date of Service: 06/01/25 MR#: [id number] Acct: [id number] Name: TORI GRAY Rep #: [id number] : 1980 Provider: CONCEPCIÓN Montgomery Age/Sex: 44/F [facility] Status: Signed Intake Vital Signs 03/22/25 09:08 [...] left t (more content not included)... Normal [facility] Orthopedic Visit Reporton Orthopedic Visit Report [facility] [address] [place] [address] OFFICE VISIT Date of Service: 05/06/25 MR#: [id number] Acct: [id number] Name: TORI GRAY Rep #: [id number] : 1980 Provider: Dr. Brett kessler MD [...] by me, (more content not included)... Normal [facility] Chiropractic Reporton 2024 Chiropractic Report [facility] [address] [place] [address] OFFICE VISIT Date of Service: 04/21/25 MR#: [id number] Acct: [id number] Name: TORI GRAY Rep #: [id number] : 1980 Provider: CONCEPCIÓN Montgomery Age/Sex: 44/F Location: [facility] Status: Signed Intake Vital Signs [...] 7 days #30 ea 04/05/25 Rx packet [facility] Medical History Abnormal ECG Prolonged Q-T [...] appointment w (more content not included)... Normal [facility] Magnetic resonance imaging r eportOrdered By: Salazar Tyson on 04-19-2025 Study report [facility] Imaging Services [address] [place], [place] [address] Upper Ext Joint Only(Routine) MR#: [id number] Acct: [id number] Name: TORI GRAY Rep #: [id number] : 1980 F 44 From: Moncho Tyson MD PCP: Dr. Ivette Grimes MD Status: REG C EVER Study:Upper Ext Joint Only(Routine) Date of Exam: 04/17/25 Exam# [id number] Ordering Dr: Brett Quiroga MD PROCEDURE: UPPER [...] subacromial subdeltoid bursa, with bursitis. [facility]: Dr. Brett Quiroga MD; Dr. 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: Signed [facility] Upper Ext Joint Only(Routine )on 04-17-2025 Upper Ext Joint Only(Routine) [facility] Imaging Services [address] [place] [address] Upper Ext Joint Only(Routine) MR#: [id number] Acct: [id number] Name: TORI GRAY Rep #: [id number] : 1980 F 44 From: Salazar Tyson MD PCP: Dr. Ivette Grimes MD Status: REG CLI Study: Upper Ext Joint Only(Routine) Date of Exam: 0 04/17/25 Exam# [id number] Ordering Dr: Brett Quiroga MD PROCEDURE: UPPER [...] Brett Quiroga MD; Dr. Ivette Grimes MD Breakfast Attendant: Signed [facility] 04-07-2025 SynforaN Telephone (FAMPWS) ---- TORI GRAY ([id number]) 1980 F Date Time Provider Department 04/07/25 IVETTE GRIMES [facility] During your visit today, we [...] tablet by mouth once daily. - Ipratropium What Cheer (ATROVENT) 21 mcg (0.03 %) nasal spray [...] Each by INTRAUTERINE route as directed. - [place]-3 Fatty Acids (FISH OIL) 500 mg cap Take 1 capsule by mouth once daily. - blood sugar diagnostic (BLOOD GLUCOSE TEST) test strip Test blood sugar(s) 1 times daily. Dx: Type 2 DM - Controlled E11.9 Insulin: Yes - Lancets lancets Test blood sugar(s) 1 times daily. Dx: Type 2 DM - Controlled E11.9 Insulin: No - Ytaqmkbg-Pn-Pvc-Fe- FA tab Take 1 tablet by mouth [...] 01/23/2010 Routine general medical examination at a [facility]*01/23/2010 12/06/2012 Class: Chronic Routine gynecological examination [Z01.419] [...] 09/04/2022 09/04/2022 (more content not included)... Normal [facility] Chiropractic Reporton 2024 Chiropractic Report [facility] [address] [place] [address] OFFICE VISIT Date of Service: 04/05/25 MR#: [id number] Acct: [id number] Name: TORI GRAY Rep #: [id number] : 1980 Provider: CONCEPCIÓN Montgomery Age/Sex: 44/F Location: [facility] Status: Signed Intake Vital Signs 03/22/25 09:08 [...] Quiroga last week (more content not included)... [facility] 04-01-2025 [facility] ---- TORI GRAY ([id number]) 1980 F Date Time Provider Department 04/01/25 AMANDA ARTEAGA NEMIMN During your visit today, we recorded the following information about you: Nakia Caraballo RN 04/01/2025 12:47 PM Signed Botox approved until 11/03/25. Patient and scheduling made aware. She is a patient of [facility] but due to her being out on [...] tablet by mouth once daily. - Ipratropium What Cheer (ATROVENT) 21 mcg (0.03 %) nasal spray [...] Each by INTRAUTERINE route as directed. - [place]-3 Fatty Acids (FISH OIL) 500 mg cap Take 1 capsule by mouth once daily. - blood sugar diagnostic (BLOOD GLUCOSE TEST) test strip Test blood sugar(s) 1 times daily. Dx: Type 2 DM - Controlled E11.9 Insulin: Yes - Lancets lancets Test blood sugar(s) 1 times daily. Dx: Type 2 DM - Controlled E11.9 Insulin: No - Ehgvcchv-Si-Rrl-Fe- FA tab Take 1 tablet by mouth [...] 01/23/2010 Routine general medical examination at a [facility]*01/23/2010 12/06/2012 Class: Chronic Routine gynecological examination [Z01.419] 01/23/2010 02/22/2014 Class: Chronic Morbid Obesity [E66.01] 01/23/2010 Lumbar Disc Disorder [M51.9] 02/16/2010 Routine general medical examination at [facility]*12/06/2012 02/22/2014 Anxiety [F41.9] 06/07/2014 Type [...] mellitus [Z86.39] (more content not included)... Normal [facility] Chiropractic Reporton 2024 Chiropractic Report [facility] [place] [address] OFFICE VISIT Date of Service: 03/22/25 MR#: [id number] Acct: [id number] Name: TORI GRAY Rep #: [id number] : 1980 Provider: CONCEPCIÓN Montgomery Age/Sex: 44/F Location: [facility] Status: Signed Intake Vital Signs 03/09/25 09:20 [...] an a (more content not included)... Normal [facility] Orthopedic Visit Reporton Orthopedic Visit Report [facility] [address] [place] [address] OFFICE VISIT Date of Service: 03/22/25 MR#: [id number] Acct: [id number] Name: TORI GRAY Rep #: [id number] : 1980 Provider: Dr. Brett kessler MD Age/Sex: 44/F Location: [facility] Status: Signed Intake Vital Signs [...] me, Dr. West (more content not included)... [facility] 03-19-2025 [facility] ---- TORI GRAY ([id number]) 1980 F Date Time Provider Department 03/19/25 [...] tablet by mouth once daily. - Ipratropium What Cheer (ATROVENT) 21 mcg (0.03 %) nasal spray [...] Each by INTRAUTERINE route as directed. - [place]-3 Fatty Acids (FISH OIL) 500 mg cap Take 1 capsule by mouth once daily. - blood sugar diagnostic (BLOOD GLUCOSE TEST) test strip Test blood sugar(s) 1 times daily. Dx: Type 2 DM - Controlled E11.9 Insulin: Yes - Lancets lancets Test blood sugar(s) 1 times daily. Dx: Type 2 DM - Controlled E11.9 Insulin: No - Hbdhomfg-Mo-Zbn-Fe- FA tab Take 1 tablet by mouth [...] 01/23/2010 Routine general medical examination at a [facility]*01/23/2010 12/06/2012 Class: Chronic Routine gynecological examination [Z01.419] 01/23/2010 02/22/2014 Class: Chronic Morbid Obesity [E66.01] 01/23/2010 Lumbar Disc Disorder [M51.9] 02/16/2010 Routine general medical examination at a [facility]*12/06/2012 02/22/2014 Anxiety [F41.9] 06/07/2014 Type 2 diabetes [...] 09/04/2022 11 (more content not included)... Normal [facility] Shoulder min 2 Viewson 03-11 Shoulder min 2 Views [facility] Services [address] [place] [place], [place] [id number] Shoulder min 2 Views MR#: [id number] Acct: [id number] Name: TORI GRAY Rep #: [id number] : 1980 F 44 From: Jackson Laureano i, MD PCP: Dr. Ivette Grimes MD Status: REG CLI Study: Shoulder min 2 Views Date of Exam: 03/11/25 Exam# [id number] Ordering Dr: Brett Quiroga MD PROCEDURE: SHOULDER MIN 2 VIEWS 03/11/2025 REASON FOR EXAM: PAIN TECHNIQUE: Five views of the left shoulder COMPARISON: Left shoulder x-ray dated 05/03/2021. FINDINGS: The left shoulder is in anatomic alignment. There is no fracture or dislocation seen. No significant osteoarthritis is seen. RAD/Shoulder min 2 Views IMPRESSION: Unremarkable left shoulder series. Reading Location: [id number] CC: Dr. Brett Quiroga MD; Dr. Ivette Grimes MD Breakfast Attendant: Signed Normal [facility] Chiropractic Reporton 2024 Chiropractic Report [facility] [address] [place] [address] OFFICE VISIT Date of Service: 03/09/25 MR#: [id number] Acct: [id number] Name: TORI GRAY Rep #: [id number] : 1980 Provider: CONCEPCIÓN Montgomery Age/Sex: 44/F Location: [facility] Status: Signed Intake Vital Signs [...] 7 days #30 ea 03/09/25 Rx packet [facility] Medical History Abnormal ECG Prolonged Q-T [...] under her sh (more content not included)... [facility] [place] [facility] ---- ISAACTORI Ivan ([id number]) 1980 F Date Time Provider Department 03/04/25 [...] tablet by mouth once daily. - Ipratropium What Cheer (ATROVENT) 21 mcg (0.03 %) nasal spray [...] Each by INTRAUTERINE route as directed. - [place]-3 Fatty Acids (FISH OIL) 500 mg cap Take 1 capsule by mouth once daily. - blood sugar diagnostic (BLOOD GLUCOSE TEST) test strip Test blood sugar(s) 1 times daily. Dx: Type 2 DM - Controlled E11.9 Insulin: Yes - Lancets lancets Test blood sugar(s) 1 times daily. Dx: Type 2 DM - Controlled E11.9 Insulin: No - Uxgjykbv-Sx-Edu-Fe- FA tab Take 1 tablet by mouth [...] 01/23/2010 Routine general medical examination at a [facility]*01/23/2010 12/06/2012 Class: Chronic Routine gynecological examination [Z01.419] 01/23/2010 02/22/2014 Class: Chronic Morbid Obesity [E66.01] 01/23/2010 Lumbar Disc Disorder [M51.9] 02/16/2010 Routine general medical examination at [facility]*12/06/2012 02/22/2014 Anxiety [F41.9] 06/07/2014 Type [...] headache [G43. (more content not included)... Normal [facility] Hany 02-24-2025 GABRIELAN Telephone ([facility]) ---- ISAACTORI ([id number]) 1980 F Date Time Provider Department 02/24/25 [...] tablet by mouth once daily. - Ipratropium What Cheer (ATROVENT) 21 mcg (0.03 %) nasal spray [...] Each by INTRAUTERINE route as directed. - [place]-3 Fatty Acids (FISH OIL) 500 mg cap Take 1 capsule by mouth once daily. - blood sugar diagnostic (BLOOD GLUCOSE TEST) test strip Test blood sugar(s) 1 times daily. Dx: Type 2 DM - Controlled E11.9 Insulin: Yes - Lancets lancets Test blood sugar(s) 1 times daily. Dx: Type 2 DM - Controlled E11.9 Insulin: No - Wrbqkucz-Kc-Sxr-Fe- FA tab Take 1 tablet by mouth [...] 02/16/2010 Routine general medical examination at a [facility]*12/06/2012 02/22/2014 Anxiety [F41.9] 06/07/2014 Type 2 diabetes [...] 09/04/2022 Low (more content not included)... Normal [facility] Inital Evaluation (1) - PTon 02-08-2025 Inital Evaluation (1) - PT [facility] [address] [place] [address] / REHABILITATION SERVICES INITIAL EVALUATION MR#: [id number] Acct: [id number] Name: TORI GRAY Rep #: [id number] : 1980 44 From: Santana Ruano DPT Referring Dr.: Dr. Ivette Grimes MD Status: REG RCR Insurance: [employer]/[facility] SELF PAY INSURANCE Patient's Visit [...] to be FAXED BACK to us at [phone] for Medicare purposes. For Medicare only, by signing this I certify the plan of care. Please let me know if there are questions or concerns regarding this plan of care. Physician Signature: __Date: 02/08/25 1434 CC: Dr. Ivette Grimes MD CLS Signed Normal [facility] Chiropractic Reporton 2024 Chiropractic Report [facility] [address] [place] [address] OFFICE VISIT Date of Service: 02/04/25 MR#: [id number] Acct: [id number] Name: TORI GRAY Rep #: [id number] : 1980 Provider: CONCEPCIÓN Montgomery Age/Sex: 44/F Location: [facility] Status: Signed Intake Vital Signs 11/11/24 05:55 [...] 7 days #30 ea 02/04/25 Rx packet [facility] Medical History Abnormal ECG Prolonged Q-T [...] adjustment. 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 Normal [facility] Anion gap in Serum or Plasma Ordered By: Ivette Grimes on 01-28-2025 Anion gap [Moles/Vol] 11 mmol/L 03-18 [facility] BUN/creatinine ratioOrdered By: Ivette Grimes on 01-28-2025 Urea nitrogen/Creatinine [Mass ratio] 18.5 mg/mg 08-23 [facility] Basic Metabolic Profile (BMP )on 01-28-2025 BUN/CRE 18.5 RATIO Normal 08-23 [facility] Comment on above: Performed By: #### L 501.080 #### [facility] [address] [place], [address] Calcium [Mass/Vol] 9.0 mg/dL Normal 7.6-11.0 [facility] Comment on above: Performed By: #### L 501.080 #### [facility] [address] [place], [address] Chloride [Moles/Vol] 105 mmol/L Normal 98-108 [facility] Comment on above: Performed By: #### L 501.080 #### [facility] [address] [place], [address] CO2 [Moles/Vol] 21.2 mmol/L Normal 21.0-32.0 [facility] Comment on above: Performed By: #### L 501.080 #### [facility] [address] [place], [address] Creatinine [Mass/Vol] 0.77 mg/dL Normal 0.70-1.20 [facility] Comment on above: Performed By: #### L 501.080 #### [facility] [address] [place], [address] GAP 11 Normal 5-15 [facility] Comment on above: Performed By: #### L 501.080 #### [facility] [address] [place], [address] GFR/1.73 sq M.predicted among non-blacks MDRD (S/P/Bld) [Vol rate/Area] 98 mL/min/{1.73_m2} Normal >60 [facility] Comment on above: Result Comment: mL/m in/1.73m2 CKD-EPI Creatinine Equation (2020) Performed By: #### L 501.080 #### [facility] [address] [place], [address] Glucose [Mass/Vol] 185 mg/dL High 70-99 [facility] Comment on above: Performed By: #### L 501.080 #### [facility] [address] [place], [address] Potassium [Moles/Vol] 4.2 mmol/L Normal 3.3-5.1 [facility] Comment on above: Result Comment: Hemo lysis present, Results??could be affected. ?? Performed By: #### L 501.080 #### [facility] [address] [place], [place], [address] Sodium [Moles/Vol] 137 mmol/L Normal 133-145 [facility] Comment on above: Performed By: #### L 501.080 #### [facility] [address] [place], [place], [address] Urea nitrogen [Mass/Vol] 14 mg/dL Normal 4-19 [facility] Comment on above: Performed By: #### L 501.080 #### [facility] [address] [place], [place], [address] [facility] 01-28-2025 BANNER Telephone ([facility]) ---- TORI GRAY ([id number]) 1980 F Date Time Provider Department 01/28/25 IVETTE GRIMES [facility] During your visit today, we recorded the following information about you: Krystle Barnett, RN 01/28/2025 4:54 PM Signed Prior Authorization Documentation Prior authorization requested for the following medication: Medication: Ozempic 1 mg (all though PA done in Aug 2024 and approved until Aug 2025 this needs PA due to dose change). Provider: [employer] Name: [employer] Phone number: [phone] Patient ID number: [id number] Pharmacy Name: [facility] Pharmacy Telephone number: [phone] Evon Philippe LPN 01/28/2025 4:56 PM Signed Electronic PA requested. Jose Martin PRINCESS Barnard 01/28/2025 4:58 PM Signed Unable to complete electronically. Will try on covermymeds Evon Philippe LPN 01/29/2025 9:07 AM Signed [employer] RESPONSE. [employer] does not handle this review. Please visit [employer] to start a prior authorization or fax information to [phone]. Please include all supporting chart notes. You may contact [employer] at [phone]. WILL FAX PA REQUEST TO NUMBER PROVIDED. 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 Allergies As of Date: 01/28/2025 Noted Allergy [...] tablet by mouth once daily. - Ipratropium What Cheer (ATROVENT) 21 mcg (0.03 %) nasal spray [...] Each by INTRAUTERINE route as directed. - [place]-3 Fatty Acids (FISH OIL) 500 mg cap Take 1 capsule by mouth once daily. - blood sugar diagnostic (BLOOD GLUCOSE TEST) test strip Test blood sugar(s) 1 times daily. Dx: Type 2 DM - Controlled E11.9 Insulin: Yes - Lancets lancets Test blood sugar(s) 1 times daily. Dx: Type 2 DM - Controlled E11.9 Insulin: No - Zenytqjj-Lx-Rlz-Fe- FA tab Take 1 tablet by mouth [...] DERMATOFIBROMA///BE N (more content not included)... [facility] ---- TORI GRAY ([id number]) 1980 F Date Time Provider Department 01/28/25 IVETTE GRIMES [facility] During your visit today, we [...] tablet by mouth once daily. - Ipratropium What Cheer (ATROVENT) 21 mcg (0.03 %) nasal spray [...] Each by INTRAUTERINE route as directed. - [place]-3 Fatty Acids (FISH OIL) 500 mg cap Take 1 capsule by mouth once daily. - blood sugar diagnostic (BLOOD GLUCOSE TEST) test strip Test blood sugar(s) 1 times daily. Dx: Type 2 DM - Controlled E11.9 Insulin: Yes - Lancets lancets Test blood sugar(s) 1 times daily. Dx: Type 2 DM - Controlled E11.9 Insulin: No - Wxiarehy-Rv-Fch-Fe- FA tab Take 1 tablet by mouth [...] 05/06/2009 01/23/2010 Routine general medical examination at [facility]*01/23/2010 12/06/2012 Class: Chronic Routine gynecological examination [Z01.419] 01/23/2010 02/22/2014 Class: Chronic Morbid Obesity [E66.01] 01/23/2010 Lumbar Disc Disorder [M51.9] 02/16/2010 Routine general medical examination at [facility]*12/06/2012 02/22/2014 Anxiety [F41.9] 06/07/2014 Type [...] R19.7] 11/22/202109/04 (more content not included)... Normal [facility] Carbon dioxide, total [Moles /volume] in Central venous bloodOrdered By: Ivette Grimes on 01-28-2025 CO2 [Moles/Vol] 21.2 mmol/L 21.0-32.0 [facility] Chloride assayOrdered By: Regina Grimes on 01-28-2025 Chloride [Moles/Vol] 105 mmol/L 98-108 [facility] GFR/1.73 sq M.predicted jamari g non-blacks MDRD (S/P/Bld) [Vol rate/Area]Ordered By: Ivette Grimes on 01-28-2025 Estimated GFR (MDRD) Non-Af Amer 98 >60 [facility] Comment on above: mL/min/1.73m2 CKD-EP I Creatinine Equation (2020) Glomerular filtration rate ( GFR) estimation/1.73 sq m using serum, plasma, or whole bOrdered By: Ivette Grimes on 01-28-2025 GFR/1.73 sq M.predicted among non-blacks MDRD (S/P/Bld) [Vol rate/Area] 98 mL/min/{1.73_m2} >60 [facility] Comment on above: mL/min/1.73m2 CKD-EP I Creatinine Equation (2020) HBA1C (OUTSIDE)on 01-28-2025 [facility] Hemoglobin A1c percentageon 01-28-2025 HbA1c (Bld) [Mass fraction] 6.6 % Normal <=5.6 [facility] Comment on above: Performed By: #### L 501.080 #### [facility] [address] [place], [place], [address] Potassium (Unsp spec) [Mass/ Vol]Ordered By: Ivette Grimes on 01-28-2025 Potassium [Moles/Vol] 4.2 mmol/L 3.3-5.1 [facility] Comment on above: Hemolysis present, R esults could be affected. Potassium measurement (mass/ volume)Ordered By: Ivette Grimes on 01-28-2025 Potassium (Unsp spec) [Mass/Vol] 4.2 mmol/L 3.3-5.1 [facility] Comment on above: Hemolysis present, R esults could be affected. Serum creatinine measurement (mass/volume)Ordered By: Ivette Grimes on 01-28-2025 Creatinine [Mass/Vol] 0.77 mg/dL 0.70-1.20 [facility] Serum glucose measurement (m ass/volume)Ordered By: Ivette Grimes on 01-28-2025 Glucose [Mass/Vol] 185 mg/dL High 70-99 [facility] Serum or plasma calcium sharron urement (mass/volume)Ordered By: Ivette Grimes on 01-28-2025 Calcium [Mass/Vol] 9.0 mg/dL 7.6-11.0 [facility] Serum or plasma urea nitroge n measurement (mass/volume)Ordered By: Ivette Grimes on 01-28-2025 Urea nitrogen [Mass/Vol] 14 mg/dL 4-19 [facility] Sodium levelOrdered By: Reji Grimes on 01-28-2025 Sodium [Moles/Vol] 137 mmol/L 133-145 [facility] CNOVon 01-22-2025 CNOV Office Visit (FAMPWS) ---- TORI GRAY ([id number]) 1980 F Date Time Provider Department 01/22/25 [...] 1 tablet by mouth once daily. Ipratropium What Cheer (ATROVENT) 21 mcg (0.03 %) nasal spray [...] 1 Each by INTRAUTERINE route as directed. [place]-3 Fatty Acids (FISH OIL) 500 mg cap Take 1 capsule by mouth once daily. blood sugar diagnostic (BLOOD GLUCOSE TEST) test strip Test blood sugar(s) 1 times daily. Dx: Type 2 DM - Controlled E11.9 Insulin: Yes Lancets lancets Test blood sugar(s) 1 times daily. Dx: Type 2 DM - Controlled E11.9 Insulin: No Qscvmick-Ju-Byw-Fe- FA tab Take 1 tablet by mouth [...] Age of Onset Alcohol/Drug Mother Heart Father [place] Cancer Father PANCREATIC CANCER Diabetes Father Coronary [...] Controlled ( (more content not included)... [facility] ---- TORI GRAY ([id number]) 1980 F Date Time Provider Department 12/21/24 [facility] visit today, we recorded [...] tablet by mouth once daily. - Ipratropium What Cheer (ATROVENT) 21 mcg (0.03 %) nasal spray [...] Each by INTRAUTERINE route as directed. - [place]-3 Fatty Acids (FISH OIL) 500 mg cap Take 1 capsule by mouth once daily. - blood sugar diagnostic (BLOOD GLUCOSE TEST) test strip Test blood sugar(s) 1 times daily. Dx: Type 2 DM - Controlled E11.9 Insulin: Yes - Lancets lancets Test blood sugar(s) 1 times daily. Dx: Type 2 DM - Controlled E11.9 Insulin: No - Ugiywyun-Nf-Hvz-Fe- FA tab Take 1 tablet by mouth [...] 01/23/2010 Routine general medical examination at a [facility]*01/23/2010 12/06/2012 Class: Chronic Routine gynecological examination [Z01.419] 01/23/2010 02/22/2014 Class: Chronic Morbid Obesity [E66.01] 01/23/2010 Lumbar Disc Disorder [M51.9] 02/16/2010 Routine general medical examination at [facility]*12/06/2012 02/22/2014 Anxiety [F41.9] 06/07/2014 Type 2 diabetes mellitus with microalbuminuria,*0 07/04/2018 Fatty liver [K76.0] 07/21/2018 08/05/2024 LETITIA (obstructive sleep apnea) [G47.33] 07/21/2018 Microalbuminuria [R80.9] 09/30/2018 09/04/2022 Obesity, Class III, BMI >= 40 [E66.01] 11/26/2019 09/04/2022 (more content not included)... Normal [facility] Albumin to globulin ratioOrd ered By: Jenni Martínez on 12-11-2024 Albumin/Globulin [Mass ratio] 0.8 {ratio} Low 0.9-2.4 [facility] Bilirubin, totalOrdered By: Jenni Martínez on 12-11-2024 Bilirubin [Mass/Vol] 0.80 mg/dL 0.20-1.00 [facility] Comment on above: For patients on eltr ombopag therapy, use of Dimension [place] TBIL is not recommended. Blood urea nitrogen (BUN)/cr eatinine ratioOrdered By: Jenni Martínez on 12-11-2024 Urea nitrogen/Creatinine [Mass ratio] 11.5 mg/mg 10-20 [facility] CNOVon 12-11-2024 CNOV Office Visit (FAMPWS) ---- TORI GRAY ([id number]) 1980 F Date Time Provider Department 12/11/24 11:00 AM JENNI MARTÍNEZ During your visit today, we recorded the following information about you: Temperature Pulse Respiration Blood pressure 97.8 degrees 72/minute 16/minute 138/74 Weight 125.7 kg Jenni Martínez APRN.EBD TEACHER 12/11/2024 12:26 PM Signed This is a [...] 1 tablet by mouth once daily. Ipratropium What Cheer (ATROVENT) 21 mcg (0.03 %) nasal spray [...] 1 Each by INTRAUTERINE route as directed. [place]-3 Fatty Acids (FISH OIL) 500 mg cap Take 1 capsule by mouth once daily. blood sugar diagnostic (BLOOD GLUCOSE TEST) test strip Test blood sugar(s) 1 times daily. Dx: Type 2 DM - Controlled E11.9 Insulin: Yes Lancets lancets Test blood sugar(s) 1 times daily. Dx: Type 2 DM - Controlled E11.9 Insulin: No Hjzqycov-Cz-Fxk-Fe- FA tab Take 1 tablet by mouth once daily. No current facility-administer ed medications for this visit. FAMILY HISTORY Problem Relation Age of Onset Alcohol/Drug Mother Heart Father [place] Cancer Father PANCREATIC CANCER Diabetes Father Coronary [...] NECK: Negat (more content not included)... Normal [facility] TORI GRAY ([id number]) 1980 F Date Time Provider Department 12/11/24 IVETTE GRIMES [facility] During your visit today, we recorded the following information about you: Brittney Meredith RN 12/11/2024 8:23 AM Signed Patient calling to make appt for evaluation of respiratory sx's that began approx 4 weeks ago. Pt states she feels she may have bronchitis or pneumonia. States she was at [facility] ER last month due to [...] tablet by mouth once daily. - Ipratropium What Cheer (ATROVENT) 21 mcg (0.03 %) nasal spray [...] Each by INTRAUTERINE route as directed. - [place]-3 Fatty Acids (FISH OIL) 500 mg cap Take 1 capsule by mouth once daily. - blood sugar diagnostic (BLOOD GLUCOSE TEST) test strip Test blood sugar(s) 1 times daily. Dx: Type 2 DM - Controlled E11.9 Insulin: Yes - Lancets lancets Test blood sugar(s) 1 times daily. Dx: Type 2 DM - Controlled E11.9 Insulin: No - Sxgxhzyi-Cu-Rrb-Fe- FA tab Take 1 tablet by mouth [...] 05/06/2009 01/23/2010 Routine general medical examination at [facility]*01/23/2010 12/06/2012 Class: Chronic Routine gynecological examination [Z01.419] 01/23/2010 02/22/2014 Class: Chronic Morbid Obesity [E66.01] 01/23/2010 Lumbar Disc Disorder [M51.9] 02/16/2010 Routine general medical examination at [facility]*12/06/2012 02/22/2014 Anxiety [F41.9] 06/07/2014 Type 2 diabetes mellitus with microalbuminuria,*0 07/04/2018 Fatty liver [K76.0] 07/21/2018 08/05/20 (more content not included)... Normal [facility] TAYLER Telephone (OLGA) ---- TORI GRAY ([id number]) 1980 F Date Time Provider Department 12/11/24 JENNI MARTÍNEZ During your visit today, we recorded the following information about you: Jenni Martínez APRN.GABRIELA 12/11/2024 2:18 PM Signed Can you please call the patient and let her know that I am still waiting for x-ray results from [facility]. I went ahead and sent [...] tablet by mouth once daily. - Ipratropium What Cheer (ATROVENT) 21 mcg (0.03 %) nasal spray [...] Each by INTRAUTERINE route as directed. - [place]-3 Fatty Acids (FISH OIL) 500 mg cap Take 1 capsule by mouth once daily. - blood sugar diagnostic (BLOOD GLUCOSE TEST) test strip Test blood sugar(s) 1 times daily. Dx: Type 2 DM - Controlled E11.9 Insulin: Yes - Lancets lancets Test blood sugar(s) 1 times daily. Dx: Type 2 DM - Controlled E11.9 Insulin: No - Gfvzgvnw-Of-Bxr-Fe- FA tab Take 1 tablet by mouth [...] SACROILIITIS [ (more content not included)... Normal [facility] Carbon dioxide measurementOr dered By: Jenni Martínez on 12-11-2024 CO2 [Moles/Vol] 23.0 mmol/L 21.0-32.0 [facility] Chest PA and Lateralon 12-11 Chest PA and Lateral [facility] Imaging Services [address] [place] [address] Chest PA and Lateral MR#: [id number] Acct: [id number] Name: TORI GRAY Rep #: [id number] : 1980 F 44 From: Sammy Gay MD PCP: Dr. Ivette Grimes MD Status: REG CLI Study: Chest PA and Lateral Date of Exam: 12/11/24 Exam# [id number] Ordering Dr: Jenni Martínez RELIGIOUS HEALER-C EXAM: XR Chest, 2 Views CLINICAL INDICATION: TECHNIQUE: Frontal and lateral views of the chest. COMPARISON: No relevant prior studies available. FINDINGS: LUNGS AND PLEURAL SPACES: Unremarkable. No consolidation. No pneumothorax. HEART: Unremarkable. No cardiomegaly. MEDIASTINUM: Unremarkable. Normal mediastinal contour. BONES/JOINTS: Unremarkable. No acute fracture. RAD/Chest PA and Lateral IMPRESSION: No acute cardiopulmonary process. Reading [facility] CC: FADUMO Martínez; Dr. Ivette Grimes MD Breakfast Attendant: Signed Normal [facility] Chloride measurementOrdered By: Jenni Martínez on 12-11-2024 Chloride [Moles/Vol] 107 mmol/L 98-107 [facility] Comprehensive Metabolic Prof ilon 12-11-2024 Albumin [Mass/Vol] 3.7 g/dL Normal 3.2-5.0 [facility] Comment on above: Performed By: #### L 100.0100, L503.6005, L500.4050 #### [facility] [address] [place], [address] Albumin/Globulin [Mass ratio] 0.8 {ratio} Low 0.9-2.4 [facility] Comment on above: Performed By: #### L 100.0100, L503.6005, L500.4050 #### [facility] [address] [place], [address] ALK P 84 U/L Normal 45-117 [facility] Comment on above: Performed By: #### L 100.0100, L503.6005, L500.4050 #### [facility] [address] [place], [address] ALT [Catalytic activity/Vol] 53 U/L Normal 13-56 [facility] Comment on above: Performed By: #### L 100.0100, L503.6005, L500.4050 #### [facility] [address] [place], [address] AST [Catalytic activity/Vol] 40 U/L High 15-37 [facility] Comment on above: Performed By: #### L 100.0100, L503.6005, L500.4050 #### [facility] [address] [place], [address] Bilirubin [Mass/Vol] 0.80 mg/dL Normal 0.20-1.00 [facility] Comment on above: Result Comment: For patients on eltrombopag therapy, use of Dimension [place] TBIL is not recommended. Performed By: #### L 100.0100, L503.6005, L500.4050 #### [facility] [address] [place], [address] BUN/CRE 11.5 RATIO Normal 10-20 [facility] Comment on above: Performed By: #### L 100.0100, L503.6005, L500.4050 #### [facility] [address] [place], [address] CA,Total 8.8 mg/dL Normal 8.5-10.1 [facility] Comment on above: Performed By: #### L 100.0100, L503.6005, L500.4050 #### [facility] [address] [place], [address] Chloride [Moles/Vol] 107 mmol/L Normal 98-107 [facility] Comment on above: Performed By: #### L 100.0100, L503.6005, L500.4050 #### [facility] [address] [place], [address] CO2 [Moles/Vol] 23.0 mmol/L Normal 21.0-32.0 [facility] Comment on above: Performed By: #### L 100.0100, L503.6005, L500.4050 #### [facility] [address] [place], [address] Creatinine [Mass/Vol] 0.78 mg/dL Normal 0.55-1.02 [facility] Comment on above: Result Comment: The validity of the calculated GFR GFRAA in patients over 70 years has not been determined. Clinical correlation is essential. Performed By: #### L 100.0100, L503.6005, L500.4050 #### [facility] [address] [place], [address] EST GFR - AA 104 mL/min Normal >60 [facility] Comment on above: Result Comment: Afri can [place] GFR Calc Performed By: #### L 100.0100, L503.6005, L500.4050 #### [facility] [address] [place], [address] GAP 7 Normal 5-15 [facility] Comment on above: Performed By: #### L 100.0100, L503.6005, L500.4050 #### [facility] [address] [place], [address] GFR/1.73 sq M.predicted among non-blacks MDRD (S/P/Bld) [Vol rate/Area] 86 mL/min/{1.73_m2} Normal >60 [facility] Comment on above: Result Comment: Non- GFR Calc Performed By: #### L 100.0100, L503.6005, L500.4050 #### [facility] [address] [place], [address] Globulin (S) [Mass/Vol] 4.5 g/dL High 2.2-4.2 [facility] Comment on above: Performed By: #### L 100.0100, L503.6005, L500.4050 #### [facility] [address] [place], [address] Glucose [Mass/Vol] 109 mg/dL High 74-106 [facility] Comment on above: Result Comment: Fast ing Glucose result from 100 to 125 mg/dL suggests IMPAIRED HOMEOSTASIS per A.D.A. criteria. Performed By: #### L 100.0100, L503.6005, L500.4050 #### [facility] [address] [place], [address] Potassium [Moles/Vol] 3.9 mmol/L Normal 3.5-5.1 [facility] Comment on above: Performed By: #### L 100.0100, L503.6005, L500.4050 #### [facility] [address] [place], [address] Sodium [Moles/Vol] 137 mmol/L Normal 136-145 [facility] Comment on above: Performed By: #### L 100.0100, L503.6005, L500.4050 #### [facility] [address] [place], [address] T PROT 8.2 g/dL Normal 6.4-8.2 [facility] Comment on above: Performed By: #### L 100.0100, L503.6005, L500.4050 #### [facility] [address] [place], [address] Urea nitrogen [Mass/Vol] 9 mg/dL Normal 7-18 [facility] Comment on above: Performed By: #### L 100.0100, L503.6005, L500.4050 #### [facility] [address] [place], [address] Estimated glomerular filtrat ion rate (GFR) AmericanOrdered By: Jenni Martínez on 12-11-2024 Estimated GFR (MDRD) Amer 104 mL/min >60 [facility] Comment on above: GFR Calc Glomerular filtration rate ( GFR) estimationOrdered By: Jenni Martínez on 12-11-2024 Estimated GFR (MDRD) Non-Af Amer 86 mL/min >60 [facility] Comment on above: Non- GFR Calc GFR/1.73 sq M.predicted among non-blacks MDRD (S/P/Bld) [Vol rate/Area] 86 mL/min/{1.73_m2} >60 [facility] Comment on above: Non- GFR Calc Glucose measurementOrdered B y: Jenni Martínez on 12-11-2024 Glucose [Mass/Vol] 109 mg/dL High 74-106 [facility] Comment on above: Fasting Glucose resu lt from 100 to 125 mg/dL suggests IMPAIRED HOMEOSTASIS per A.D.A. criteria. Laboratory - Chemistry and C hemistry - challengeOrdered By: Jenni Martínez on 12-11-2024 AST [Catalytic activity/Vol] 40 U/L High 15-37 [facility] Potassium measurementOrdered By: Jenni Martínez on 12-11-2024 Potassium [Moles/Vol] 3.9 mmol/L 3.5-5.1 [facility] Serum anion gap measurementO rdered By: Jenni Martínez on 12-11-2024 Anion gap [Moles/Vol] 7 mmol/L 5-15 [facility] Serum globulin measurementOr dered By: Jenni Martínez on 12-11-2024 Globulin (S) [Mass/Vol] 4.5 g/dL High 2.2-4.2 [facility] Serum or plasma alanine arizmendi otransferase (ALT) measurementOrdered By: Jenni Martínez on 12-11-2024 ALT [Catalytic activity/Vol] 53 U/L 13-56 [facility] Serum or plasma albumin sharron urement (mass/volume)Ordered By: Jenni Martínez on 12-11-2024 Albumin [Mass/Vol] 3.7 g/dL 3.2-5.0 [facility] Serum or plasma alkaline toyin sphatase measurementOrdered By: Jenni Martínez on 12-11-2024 ALP [Catalytic activity/Vol] 84 U/L 45-117 [facility] Serum or plasma calcium sharron urement (mass/volume)Ordered By: Jenni Martínez on 12-11-2024 Calcium [Mass/Vol] 8.8 mg/dL 8.5-10.1 [facility] Serum or plasma creatinine m easurement (mass/volume)Ordered By: Jenni Martínez on 12-11-2024 Creatinine [Mass/Vol] 0.78 mg/dL 0.55-1.02 [facility] Comment on above: The validity of the calculated GFR & GFRAA in patients over 70 years has not been determined. Clinical correlation is essential. Serum or plasma urea nitroge n measurement (mass/volume)Ordered By: Jenni Martínez on 12-11-2024 Urea nitrogen [Mass/Vol] 9 mg/dL 7-18 [facility] Sodium levelOrdered By: Ricco Martínez on 12-11-2024 Sodium [Moles/Vol] 137 mmol/L 136-145 [facility] Total proteinOrdered By: John Martínez on 12-11-2024 Protein [Mass/Vol] 8.2 g/dL 6.4-8.2 [facility] Urine Cultureon 11-12-2024 [facility] Mixed Gram Pos Gram Neg Org [place] Count 11,000-25,000 [facility] Mixed contaminants. Submit a new specimen if indicated. Normal [facility] Comment on above: Performed By: #### M 100.9712 ####[facility] [id number] [facility] [place], [address] 12 Lead EKGon 11-11-2024 12 Lead EKG [facility] Cardiovascular Services [address] [place] [address] 12 Lead EKG 11/11/24 0649 MR#: [id number] Acct: [id number] Name: TORI GRAY Rep #: [id number] : 1980 44 From: Jackson Keenan MD [...] abnormality Abnormal ECG Confirmed by Jackson Keenan ([id number]), newspaper or periodical editor PRISCILA FERRERA ([id number]) on 11/12/2024 10:16:52 AM Referred By: Isabel Confirmed By: Jackson Keenan 11/12/24 1016 Date Jackson Keenan MD CC: Dr. Buddy Hall DO; Dr. Ivette Grimes MD Signed Normal [facility] Absolute neutrophil countOrd ered By: Buddy Hall on 11-11-2024 Neutrophils (Bld) [#/Vol] 6.5 10*3/uL 2.0-7.7 [facility] Albumin to globulin ratioOrd ered By: Buddy Hall on 11-11-2024 Albumin/Globulin [Mass ratio] 0.6 {ratio} Low 0.9-2.4 [facility] Bacteria LM.HPF (Urine sed) [#/Area]Ordered By: Buddy Hall on 11-11-2024 Urine Bacteria RARE /hpf None Seen [facility] Basophil percentageOrdered B y: Buddy Hall on 11-11-2024 Basophils/100 WBC (Bld) 0.4 % 0-1 [facility] Bilirubin Test strip Ql (U)O rdered By: Buddy Hall on 11-11-2024 Bilirubin Ql (U) Negative Negative [facility] Bilirubin, totalOrdered By: Buddy Hall on 11-11-2024 Bilirubin [Mass/Vol] 0.90 mg/dL 0.20-1.00 [facility] Comment on above: For patients on eltr ombopag therapy, use of Dimension [place] TBIL is not recommended. Blood urea nitrogen (BUN)/cr eatinine ratioOrdered By: Buddy Hall on 11-11-2024 Urea nitrogen/Creatinine [Mass ratio] 9.8 mg/mg Low 10-20 [facility] CBC W/Diff, Automatedon Absolute Lymph 0.72 X10 3/uL Low 0.83-4.51 [facility] Comment on above: Performed By: #### L 100.0100, L503.6005, L500.4050 #### [facility] [address] [place], [address] Absolute Neut 6.5 X10 3/uL Normal 2.0-7.7 [facility] Comment on above: Performed By: #### L 100.0100, L503.6005, L500.4050 #### [facility] [address] [place], [address] Basophils/100 WBC (Bld) 0.4 % Normal 0-1 [facility] Comment on above: Performed By: #### L 100.0100, L503.6005, L500.4050 #### [facility] [address] [place], [address] Eosinophils/100 WBC (Bld) 1.2 % Normal 0-5 [facility] Comment on above: Performed By: #### L 100.0100, L503.6005, L500.4050 #### [facility] [address] [place], [address] Erythrocyte distribution width (RBC) [Ratio] 13.7 % Normal 11.6-14.6 [facility] Comment on above: Performed By: #### L 100.0100, L503.6005, L500.4050 #### [facility] [address] [place], [address] Hematocrit (Bld) [Volume fraction] 33.1 % Low 37-47 [facility] Comment on above: Performed By: #### L 100.0100, L503.6005, L500.4050 #### [facility] [address] [place], [address] Hemoglobin (Bld) [Mass/Vol] 11.4 g/dL Low 12.0-15.0 [facility] Comment on above: Performed By: #### L 100.0100, L503.6005, L500.4050 #### [facility] [address] [place], [address] IG% 1.200 High 0.0-0.9 [facility] Comment on above: Result Comment: IG% - Immature Granulocytes (promyelocytes, myelocytes and metamyelocytes) > 1% indicates that a LEFT SHIFT is Present. Performed By: #### L 100.0100, L503.6005, L500.4050 #### [facility] [address] [place], [address] Lymphocytes/100 WBC (Bld) 9.2 % Low 19-41 [facility] Comment on above: Performed By: #### L 100.0100, L503.6005, L500.4050 #### [facility] [address] [place], [address] MCH (RBC) [Entitic mass] 31.8 pg Normal 27.0-32.0 [facility] Comment on above: Performed By: #### L 100.0100, L503.6005, L500.4050 #### [facility] [address] [place], [address] MCHC (RBC) [Mass/Vol] 34.4 g/dL Normal 32-36 [facility] Comment on above: Performed By: #### L 100.0100, L503.6005, L500.4050 #### [facility] [address] [place], [address] MCV (RBC) [Entitic vol] 92.5 fL Normal 81-99 [facility] Comment on above: Performed By: #### L 100.0100, L503.6005, L500.4050 #### [facility] [address] [place], [address] Monocytes/100 WBC (Bld) 4.2 % Normal 0-10 [facility] Comment on above: Performed By: #### L 100.0100, L503.6005, L500.4050 #### [facility] [address] [place], [address] Neutrophils/100 WBC (Bld) 83.8 % High 47-70 [facility] Comment on above: Performed By: #### L 100.0100, L503.6005, L500.4050 #### [facility] [address] [place], [address] Nucleated RBC (Bld) [#/Vol] 0 10*3/uL Normal 0-5 [facility] Comment on above: Performed By: #### L 100.0100, L503.6005, L500.4050 #### [facility] [address] [place], [address] Platelet mean volume (Bld) [Entitic vol] 9.6 fL Normal 6.2-12.0 [facility] Comment on above: Performed By: #### L 100.0100, L503.6005, L500.4050 #### [facility] [address] [place], [address] Platelets (Bld) [#/Vol] 108 10*3/uL Low 150-450 [facility] Comment on above: Performed By: #### L 100.0100, L503.6005, L500.4050 #### [facility] [address] [place], [address] RBC (Bld) [#/Vol] 3.58 10*6/uL Low 4.2-5.4 [facility] Comment on above: Performed By: #### L 100.0100, L503.6005, L500.4050 #### [facility] [address] [place], [address] RDW SD 46.7 fl High 35.1-43.9 [facility] Comment on above: Performed By: #### L 100.0100, L503.6005, L500.4050 #### [facility] [address] [place], [address] WBC (Bld) [#/Vol] 7.8 10*3/uL Normal 4.4-11.0 [facility] Comment on above: Performed By: #### L 100.0100, L503.6005, L500.4050 #### [facility] [address] [place], [address] Carbon dioxide measurementOr dered By: Buddy Hall on 11-11-2024 CO2 [Moles/Vol] 28.0 mmol/L 21.0-32.0 [facility] Chloride measurementOrdered By: Buddy Hall on 11-11-2024 Chloride [Moles/Vol] 102 mmol/L 98-107 [facility] Comprehensive Metabolic Prof ilon 11-11-2024 Albumin [Mass/Vol] 2.6 g/dL Low 3.2-5.0 [facility] Comment on above: Performed By: #### L 100.0100, L503.6005, L500.4050 #### [facility] [address] [place], [address] Albumin/Globulin [Mass ratio] 0.6 {ratio} Low 0.9-2.4 [facility] Comment on above: Performed By: #### L 100.0100, L503.6005, L500.4050 #### [facility] [address] [place], [address] ALK P 79 U/L Normal 45-117 [facility] Comment on above: Performed By: #### L 100.0100, L503.6005, L500.4050 #### [facility] [address] [place], [address] ALT [Catalytic activity/Vol] 29 U/L Normal 13-56 [facility] Comment on above: Performed By: #### L 100.0100, L503.6005, L500.4050 #### [facility] [address] [place], [address] AST [Catalytic activity/Vol] 16 U/L Normal 15-37 [facility] Comment on above: Performed By: #### L 100.0100, L503.6005, L500.4050 #### [facility] [address] [place], [address] Bilirubin [Mass/Vol] 0.90 mg/dL Normal 0.20-1.00 [facility] Comment on above: Result Comment: For patients on eltrombopag therapy, use of Dimension [place] TBIL is not recommended. Performed By: #### L 100.0100, L503.6005, L500.4050 #### [facility] [address] [place], [address] BUN/CRE 9.8 RATIO Low 10-20 [facility] Comment on above: Performed By: #### L 100.0100, L503.6005, L500.4050 #### [facility] [address] [place], [address] CA,Total 8.2 mg/dL Low 8.5-10.1 [facility] Comment on above: Performed By: #### L 100.0100, L503.6005, L500.4050 #### [facility] [address] [place], [address] Chloride [Moles/Vol] 102 mmol/L Normal 98-107 [facility] Comment on above: Performed By: #### L 100.0100, L503.6005, L500.4050 #### [facility] [address] [place], [address] CO2 [Moles/Vol] 28.0 mmol/L Normal 21.0-32.0 [facility] Comment on above: Performed By: #### L 100.0100, L503.6005, L500.4050 #### [facility] [address] [place], [address] Creatinine [Mass/Vol] 1.12 mg/dL High 0.55-1.02 [facility] Comment on above: Result Comment: The validity of the calculated GFR GFRAA in patients over 70 years has not been determined. Clinical correlation is essential. Performed By: #### L 100.0100, L503.6005, L500.4050 #### [facility] [address] [place], [address] ECRCL 92.31 ml/min Normal [facility] Comment on above: Performed By: #### L 100.0100, L503.6005, L500.4050 #### [facility] [address] [place], [address] EST GFR - AA 69 mL/min Normal >60 [facility] Comment on above: Result Comment: Afri can [place] GFR Calc Performed By: #### L 100.0100, L503.6005, L500.4050 #### [facility] [address] [place], [address] GAP 6 Normal 5-15 [facility] Comment on above: Performed By: #### L 100.0100, L503.6005, L500.4050 #### [facility] [address] [place], [address] GFR/1.73 sq M.predicted among non-blacks MDRD (S/P/Bld) [Vol rate/Area] 57 mL/min/{1.73_m2} Low >60 [facility] Comment on above: Result Comment: Non- GFR Calc Performed By: #### L 100.0100, L503.6005, L500.4050 #### [facility] [address] [place], [address] Globulin (S) [Mass/Vol] 4.0 g/dL Normal 2.2-4.2 [facility] Comment on above: Performed By: #### L 100.0100, L503.6005, L500.4050 #### [facility] [address] [place], [address] Glucose [Mass/Vol] 233 mg/dL High 74-106 [facility] Comment on above: Result Comment: Gluc ose result greater than or equal to 200 mg/dL suggests DIABETES MELLITUS per A.D.A. criteria. Performed By: #### L 100.0100, L503.6005, L500.4050 #### [facility] [address] [place], [address] Potassium [Moles/Vol] 2.6 mmol/L Invalid Interpretation Code 3.5-5.1 [facility] Comment on above: Result Comment: Crit ical Result(s) Called at: 07:34:02 11/11/2024 by: ESTEFANIA ALANIZ to Ronald Piter. Results read back by same. Performed By: #### L 100.0100, L503.6005, L500.4050 #### [facility] [address] [place], [address] Sodium [Moles/Vol] 135 mmol/L Low 136-145 [facility] Comment on above: Performed By: #### L 100.0100, L503.6005, L500.4050 #### [facility] [address] [place], [address] T PROT 6.6 g/dL Normal 6.4-8.2 [facility] Comment on above: Performed By: #### L 100.0100, L503.6005, L500.4050 #### [facility] [address] [place], [address] Urea nitrogen [Mass/Vol] 11 mg/dL Normal 7-18 [facility] Comment on above: Performed By: #### L 100.0100, L503.6005, L500.4050 #### [facility] [address] [place], [address] Emergency Department Summary on 11-11-2024 Emergency Department Summary [facility] Medical Records Department [address] [place] [address] Emergency Department Summary 11/11/24 MR#: [id number] Acct: [id number] Name: TORI GRAY Rep #: [id number] : 1980 44 From: Buddy Hall DO [...] clarification of this denies any room spinning. [facility] Medical History Abnormal ECG Prolonged [...] you partic (more content not included)... Normal [facility] Eosinophil percentageOrdered By: Buddy Hall on 11-11-2024 Eosinophils/100 WBC (Bld) 1.2 % 0-5 [facility] Epithelial cells.squamous LM Ql (Urine sed)Ordered By: Buddy Hall on 11-11-2024 Epithelial cells.squamous LM.HPF (Urine sed) [#/Area] 0 /[HPF] 5-10 [facility] Erythrocyte distribution wid th ratioOrdered By: Buddy Hall on 11-11-2024 Erythrocyte distribution width (RBC) [Ratio] 13.7 % 11.6-14.6 [facility] Erythrocyte distribution wid th standard deviationOrdered By: Buddy Hall on 11-11-2024 Erythrocyte distribution width (RBC) [Entitic vol] 46.7 fL High 35.1-43.9 [facility] Estimated glomerular filtrat ion rate (GFR) AmericanOrdered By: Buddy Hall on 11-11-2024 Estimated GFR (MDRD) Amer 69 mL/min >60 [facility] Comment on above: GFR Calc Estimation of creatinine deniz aranceOrdered By: Buddy Hall on 11-11-2024 Estimated Creatinine Clearance Calc 92.31 ml/min [facility] Glomerular filtration rate ( GFR) estimationOrdered By: Buddy Hall on 11-11-2024 Estimated GFR (MDRD) Non-Af Amer 57 mL/min Low >60 [facility] Comment on above: Non- GFR Calc Glucose Ql (U)Ordered By: Smith Hall on 11-11-2024 Urine Glucose (UA) Normal mg/dl Normal [facility] Glucose measurementOrdered B y: Buddy Hall on 11-11-2024 Glucose [Mass/Vol] 233 mg/dL High 74-106 [facility] Comment on above: Glucose result great er than or equal to 200 mg/dLsuggests DIABETES MELLITUS per A.D.A. criteria. Hematocrit Auto (Bld) [Volum e fraction]Ordered By: Buddy Hall on 11-11-2024 Hematocrit (Bld) [Volume fraction] 33.1 % Low 37-47 [facility] Hemoglobin measurementOrdere d By: Buddy Hall on 11-11-2024 Hemoglobin (Bld) [Mass/Vol] 11.4 g/dL Low 12.0-15.0 [facility] Immature granulocytes/100 WB C Auto (Bld)Ordered By: Buddy Hall on 11-11-2024 Immature granulocytes/100 WBC (Bld) 1.200 % High 0.0-0.9 [facility] Comment on above: IG% - Immature Granu locytes (promyelocytes, myelocytes and metamyelocytes) > 1% indicates that a LEFT SHIFT is Present. Influenza virus A and B and SARS-CoV-2 (COVID-19) and Respiratory syncytial virus RNAOrdered By: Buddy Hall on 11-11-2024 SARS-CoV-2 (COVID-19) RNA ALLYSON+probe Ql (Unsp spec) [facility] Ketones Test strip Ql (U)Ord ered By: Buddy Hall on 11-11-2024 Ketones Ql (U) 5 mg/dl High Negative [facility] - Chemistry and C hemistry - challengeOrdered By: Buddy Hall on 11-11-2024 AST [Catalytic activity/Vol] 16 U/L 15-37 [facility] Lymphocytes Auto (Unsp spec) [#/Vol]Ordered By: Buddy Hall on 11-11-2024 Lymphocytes (Bld) [#/Vol] 0.72 10*3/uL Low 0.83-4.51 [facility] Lymphocytes/100 WBC Auto (Un sp spec)Ordered By: Buddy Hall on 11-11-2024 Lymphocytes/100 WBC (Bld) 9.2 % Low 19-41 [facility] M100.678on 11-11-2024 M100.678 Pending SARS-CoV-2 (COVID 19) Negative INFLUENZA A Negative INFLUENZA B Negative RSV PCR Negative Normal [facility] Comment on above: Performed By: #### L 400.0001, M100.678 ####[facility] [id number] [facility] [place], [address] MCV (mean corpuscular volume ) determinationOrdered By: Buddy Hall on 11-11-2024 MCV (RBC) [Entitic vol] 92.5 fL 81-99 [facility] Magnesiumon 11-11-2024 Magnesium [Mass/Vol] 1.7 mg/dL Normal 1.6-2.6 [facility] Comment on above: Performed By: #### L 501.5200 #### [facility] [address] [place], [place], [id number] Magnesium measurementOrdered By: Buddy Hall on 11-11-2024 Magnesium [Mass/Vol] 1.7 mg/dL 1.6-2.6 [facility] Mean corpuscular hemoglobin (MCH) determinationOrdered By: Buddy Hall on 11-11-2024 MCH (RBC) [Entitic mass] 31.8 pg 27.0-32.0 [facility] Mean corpuscular hemoglobin concentration (MCHC) determinationOrdered By: Buddy Hall on 11-11-2024 MCHC (RBC) [Mass/Vol] 34.4 g/dL 32-36 [facility] Mean platelet volume determi nationOrdered By: Buddy Hall on 11-11-2024 Platelet mean volume (Bld) [Entitic vol] 9.6 fL 6.2-12.0 [facility] Microscopic analysis of urin e for red blood cells (RBC)Ordered By: Buddy Hall on 11-11-2024 Urine RBC 0-5 SEEN /hpf 0-5 [facility] Monocyte percentageOrdered B y: Buddy Hall on 11-11-2024 Monocytes/100 WBC (Bld) 4.2 % 0-10 [facility] Mucus LM Ql (Urine sed)Order ed By: Buddy Hall on 11-11-2024 Mucus Ql (Urine sed) 0 SEEN /hpf [facility] Neutrophil percentageOrdered By: Buddy Hall on 11-11-2024 Neutrophils/100 WBC (Bld) 83.8 % High 47-70 [facility] Nitrite Test strip Ql (U)Ord ered By: Buddy Hall on 11-11-2024 Nitrite Ql (U) Negative Negative [facility] Nucleated red blood cell per centageOrdered By: Buddy Hall on 11-11-2024 Nucleated RBC/100 WBC (Bld) [Ratio] 0 % 0-5 [facility] Platelet countOrdered By: Smith Hall on 11-11-2024 Platelets (Bld) [#/Vol] 108 10*3/uL Low 150-450 [facility] Potassium measurementOrdered By: Buddy Hall on 11-11-2024 Potassium [Moles/Vol] 2.6 mmol/L Low 3.5-5.1 [facility] Comment on above: Critical Result(s) C alled at: 07:34:02 11/11/2024 by: ESTEFANIA AALNIZ to Ronald Dumas. Results read back by same. Protein Test strip Ql (U)Ord ered By: Buddy Hall on 11-11-2024 Protein Ql (U) 100 mg/dl High Negative [facility] RBC Auto (Bld) [#/Vol]Ordere d By: Buddy Hall on 11-11-2024 RBC (Bld) [#/Vol] 3.58 10*6/uL Low 4.2-5.4 [facility] Serum anion gap measurementO rdered By: Buddy Hall on 11-11-2024 Anion gap [Moles/Vol] 6 mmol/L 5-15 [facility] Serum globulin measurementOr dered By: Buddy Hall on 11-11-2024 Globulin (S) [Mass/Vol] 4.0 g/dL 2.2-4.2 [facility] Serum or plasma alanine arizmendi otransferase (ALT) measurementOrdered By: Buddy Hall on 11-11-2024 ALT [Catalytic activity/Vol] 29 U/L 13-56 [facility] Serum or plasma albumin sharron urement (mass/volume)Ordered By: Buddy Hall on 11-11-2024 Albumin [Mass/Vol] 2.6 g/dL Low 3.2-5.0 [facility] Serum or plasma alkaline toyin sphatase measurementOrdered By: Buddy Hall on 11-11-2024 ALP [Catalytic activity/Vol] 79 U/L 45-117 [facility] Serum or plasma calcium sharron urement (mass/volume)Ordered By: Buddy Hall on 11-11-2024 Calcium [Mass/Vol] 8.2 mg/dL Low 8.5-10.1 [facility] Serum or plasma creatinine m easurement (mass/volume)Ordered By: Buddy Hall on 11-11-2024 Creatinine [Mass/Vol] 1.12 mg/dL High 0.55-1.02 [facility] Comment on above: The validity of the calculated GFR & GFRAA in patients over 70 years has not been determined. Clinical correlation is essential. Serum or plasma urea nitroge n measurement (mass/volume)Ordered By: Buddy Hall on 11-11-2024 Urea nitrogen [Mass/Vol] 11 mg/dL 7-18 [facility] Sodium levelOrdered By: Ashia Hall on 11-11-2024 Sodium [Moles/Vol] 135 mmol/L Low 136-145 [facility] Total proteinOrdered By: Sim Hall on 11-11-2024 Protein [Mass/Vol] 6.6 g/dL 6.4-8.2 [facility] Urinalysis, Completeon 11-11 BACTERIA RARE Normal None Seen [facility] Comment on above: Order Comment: CLEAN CATCH Performed By: #### L 400.0001, M100.678 ####[facility] [address] [place], [address] EPI,SQUAMOUS 0-5 SEEN Normal 5-10 [facility] Comment on above: Order Comment: CLEAN CATCH Performed By: #### L 400.0001, M100.678 ####[facility] [address] [place], [address] RBC 0-5 SEEN Normal 0-5 [facility] Comment on above: Order Comment: CLEAN CATCH Performed By: #### L 400.0001, M100.678 ####[facility] [address] [place], [address] WBC 10-25 SEEN Normal 0-5 [facility] Comment on above: Order Comment: CLEAN CATCH Performed By: #### L 400.0001, M100.678 ####[facility] [address] [place], [address] Mucus Ql (Urine sed) 0 SEEN Normal [facility] Comment on above: Order Comment: CLEAN CATCH Performed By: #### L 400.0001, M100.678 ####[facility] [address] [place], [address] Urine blood detectionOrdered By: Buddy Hall on 11-11-2024 Urine Occult Blood 150 /ul High Negative [facility] Urine clarityOrdered By: Sim Hall on 11-11-2024 Clarity (U) Sl. Cloudy Clear [facility] Urine color determinationOrd ered By: Buddy Hall on 11-11-2024 Color (U) Yellow Yellow [facility] Urine cultureOrdered By: Sim Hall on 11-11-2024 Bacteria identified Cx Nom (U) Mixed Gram Pos & Gram Neg Org Abnormal [facility] Urine leukocyte esterase det ection by dipstickOrdered By: Buddy Hall on 11-11-2024 Leukocyte esterase Test strip Ql (U) 500 /ul High Negative [facility] Urine pHOrdered By: Buddy samuel on 11-11-2024 pH (U) 6.5 [pH] 5.0 - 8.0 [facility] Urine specific gravity measu rementOrdered By: Buddy Hall on 11-11-2024 Specific gravity (U) [Rel density] 1.010 1.002-1.030 [facility] Urobilinogen Ql (U)Ordered B y: Buddy Hall on 11-11-2024 Urine Urobilinogen Normal mg/dl Normal [facility] White blood cell (WBC) count Ordered By: Buddy Hall on 11-11-2024 WBC (Bld) [#/Vol] 7.8 10*3/uL 4.4-11.0 [facility] White blood cell countOrdere d By: Buddy Hall on 11-11-2024 Urine WBC 10-25 SEEN /hpf 0-5 [facility] Chiropractic Reporton 2023 Chiropractic Report [facility] [address] [place] [address] OFFICE VISIT Date of Service: 10/19/24 MR#: [id number] Acct: [id number] Name: TORI GRAY Rep #: [id number] : 1980 Provider: CONCEPCIÓN Montgomery Age/Sex: 44/F Location: [facility] Status: Signed Intake Vital Signs [...] Adverse Reaction (Intermediate, Verified 10/19/24 09:22) Hives [facility] Medical History Abnormal ECG Prolonged Q-T [...] pain. She reports falling at work at [employer] Saturday. She was setting dishes down when [...] spine nor (more content not included)... Normal [facility] Brain/Head without Contrasto n 10-16-2024 Brain/Head without Contrast [facility] Imaging Services [address] [place] [address] Brain/Head without Contrast MR#: [id number] Acct: [id number] Name: TORI GRAY Rep #: [id number] : 1980 F 44 From: Samir Brito MD PCP: Dr. Ivette Grimes MD Status: REG ER Study: Brain/Head without Contrast Date of Exam: 10/04 01/25 Exam# [id number] Ordering Dr: Angel Ji -[id number] INDICATION: fall EXAMINATION: CT BRAIN - [...] CC: FADUMO Ji; Dr. Ivette Grimes MD Breakfast Attendant: Signed Normal [facility] Emergency Department Summary on 10-16-2024 Emergency Department Summary [facility] Medical Records Department [address] [place] [address] Emergency Department Summary 10/16/24 MR#: [id number] Acct: [id number] Name: TORI GRAY Rep #: [id number] : 1980 44 From: Sam Pearl MD [...] back pain. This will be Worker's Comp. [facility] Medical History Abnormal ECG Prolonged [...] home: Yes (more content not included)... Normal [facility] HIP, UNI W/ Pelvis 2-3 Views on 10-16-2024 HIP, UNI W/ Pelvis 2-3 Views [facility] Imaging Services [address] [place], [place] [address] HIP, UNI W/ Pelvis 2-3 Views MR#: [id number] Acct: [id number] Name: TORI GRAY Rep #: [id number] : 1980 F 44 From: Samir Brito MD PCP: Dr. Ivette Grimes MD Status: [facility] Study: HIP, UNI W/ Pelvis 2-3 Views Date of Exam: Exam# [id number] Ordering Dr: Angel Ji RELIGIOUS HEALER-C -[id number] INDICATION: right hip EXAMINATION/TECHNIQ UE: X-RAY [...] CC: FADUMO Ji; Dr. Ivette Grimes MD Breakfast Attendant: Signed Normal [facility] Lumbar Spine 2 or 3 Viewson 10-16-2024 Lumbar Spine 2 or 3 Views [facility] Imaging Services [address] [place] [address] Lumbar Spine 2 or 3 Views MR#: [id number] Acct: [id number] Name: TORI GRAY Rep #: [id number] : 1980 F 44 From: Samir Brito MD PCP: Dr. Ivette Grimes MD Status: REG ER Study: Lumbar Spine 2 or 3 Views Date of Exam: Exam# [id number] Ordering Dr: Angel Ji RELIGIOUS HEALERPrasad -[id number] INDICATION: fall EXAMINATION/TECHNIQ UE: X-RAY - [...] CC: FADUMO Ji; Dr. Ivette Grimes MD Breakfast Attendant: Signed Normal [facility] Spine Cervical without Contr ason 10-16-2024 Spine Cervical without Contras [facility] Imaging Services [address] [place], [place] [address] Spine Cervical without Contras MR#: [id number] Acct: [id number] Name: TORI GRAY Rep #: [id number] : 1980 F 44 From: Samir Brito MD PCP: Dr. Ivette Grimes MD Status: REG ER Study: Spine Cervical without Contras Date of Exam: 12/17/23 Exam# [id number] Ordering Dr: Angel Ji -[id number] INDICATION: fall EXAMINATION: CT SPINE - [...] CC: FADUMO Ji; Dr. Ivette Grimes MD Breakfast Attendant: Signed Normal [facility] Chiropractic Reporton 2023 Chiropractic Report [facility] [place], [place] [id number] OFFICE VISIT Date of Service: 09/09/24 MR#: [id number] Acct: [id number] Name: TORI GRAY Rep #: [id number] : 1980 Provider: CONCEPCIÓN Montgomery Age/Sex: 44/F Location: [facility] Status: Signed Intake Vital Signs [...] less physic (more content not included)... [facility] Office Visit ([facility]) ---- ISAACTORI Ivan ([id number]) 1980 F Date Time Provider Department 09/03/24 1:00 PM FATUMA BECKFORD [facility] During your visit today, we recorded [...] for migraine Informed Consent Consent Obtained: Written Sheridan Protocol A moment to CARE was completed [...] applicable Written Consent Obtained: Written LOT #: [id number] Expiration Date: Month: : 2025 Second vial: LOT #: [id number] Expiration Date: Month: Year: 2025 Injection Sites Left (Units) Left (Sites) Right (Units) Right (Sites) TOTAL (Units) Research Program Assistant 5 1 5 1 10 Procerus Units: [...] for further instructions. Referring Provider: FATUMA BECKFORD [[id number]] Allergies As of Date: 09/03/2024 Noted Allergy Reaction FARXIGA (DAP (more content not included)... Normal [facility] 09-01-2024 [facility] Telephone ([facility]) ---- TORI GRAY ([id number]) 1980 F Date Time Provider Department 09/01/24 FATUMA BECKFORD [facility] During your visit today, we recorded the following information about you: Steph Nieto 09/01/2024 3:33 PM [facility] [...] needed for wheezing/shortness of breath. - Ipratropium What Cheer (ATROVENT) 21 mcg (0.03 %) nasal spray [...] Each by INTRAUTERINE route as directed. - [place]-3 Fatty Acids (FISH OIL) 500 mg cap Take 1 capsule by mouth once daily. - blood sugar diagnostic (BLOOD GLUCOSE TEST) test strip Test blood sugar(s) 1 times daily. Dx: Type 2 DM - Controlled E11.9 Insulin: Yes - Lancets lancets Test blood sugar(s) 1 times daily. Dx: Type 2 DM - Controlled E11.9 Insulin: No - Tpzfwolu-Dk-Gav-Fe- FA tab Take 1 tablet by mouth [...] 02/16/2010 Routine general medical examination at a [facility]*12/06/2012 02/22/2014 Anxiety [F41.9] 06/07/2014 Type 2 diabetes [...] 08/16/2022 Fall (more content not included)... [facility] ---- TORI GRAY ([id number]) 1980 F Date Time Provider Department 09/01/24 CATHERINEFATUMA [facility] During your visit today, we recorded [...] Fully Assessed Reason for Visit: Patient Question [3157] Order(s):rimegepant (NURTEC ODT) 75 mg disintegrating tabletTake [...] needed for wheezing/shortness of breath. - Ipratropium What Cheer (ATROVENT) 21 mcg (0.03 %) nasal spray [...] Each by INTRAUTERINE route as directed. - [place]-3 Fatty Acids (FISH OIL) 500 mg cap Take 1 capsule by mouth once daily. - blood sugar diagnostic (BLOOD GLUCOSE TEST) test strip Test blood sugar(s) 1 times daily. Dx: Type 2 DM - Controlled E11.9 Insulin: Yes - Lancets lancets Test blood sugar(s) 1 times daily. Dx: Type 2 DM - Controlled E11.9 Insulin: No - Frlahely-Rt-Mji-Fe- FA tab Take 1 tablet by mouth [...] 02/16/2010 Routine general medical examination at a [facility]*12/06/2012 02/22/2014 Anxiety [F41.9] 06/07/2014 Type 2 diabetes [...] mellitus [Z86. (more content not included)... Normal [facility] Chiropractic Reporton 2023 Chiropractic Report [facility]rop[facility] [address] [place] [address] [id number] OFFICE VISIT Date of Service: 08/25/24 MR#: [id number] Acct: [id number] Name: TORI GRAY Rep #: [id number] : 1980 Provider: CONCEPCIÓN Montgomery Age/Sex: 44/F Location: [facility] Status: Signed Intake Vital Signs 03/09/24 14:53 Height 5 ft 7 in Intake Visit Reasons: Back pain Chief Complaint: low Back pain/neck pain Is patient in pain?: Yes Pain scale (1-10): 7 Allergies Corticosteroids (Glucocorticoids) (steroids) Allergy (Verified 08/25/24 09:29) Hives lidocaine Adverse Reaction (Intermediate, Verified 08/25/24 09:29) Hives [facility] Medical History Abnormal ECG Prolonged Q-T [...] L5 a (more content not included)... Normal [facility] Chiropractic Reporton 2023 Chiropractic Report [facility] [address] [place] [address] OFFICE VISIT Date of Service: 08/13/24 MR#: [id number] Acct: [id number] Name: TORI GRAY Rep #: [id number] : 1980 Provider: CONCEPCIÓN Montgomery Age/Sex: 44/F Location: [facility] Status: Signed Intake Vital Signs 03/09/24 14:53 [...] glute and thig (more content not included)... [facility] 08-11-2024 [facility] Telephone ([facility]) ---- TORI GRAY ([id number]) 1980 F Date Time Provider Department 08/11/24 FATUMA BECKFORD [facility] During your visit today, we recorded [...] needed for wheezing/shortness of breath. - Ipratropium What Cheer (ATROVENT) 21 mcg (0.03 %) nasal spray [...] Each by INTRAUTERINE route as directed. - [place]-3 Fatty Acids (FISH OIL) 500 mg cap Take 1 capsule by mouth once daily. - blood sugar diagnostic (BLOOD GLUCOSE TEST) test strip Test blood sugar(s) 1 times daily. Dx: Type 2 DM - Controlled E11.9 Insulin: Yes - Lancets lancets Test blood sugar(s) 1 times daily. Dx: Type 2 DM - Controlled E11.9 Insulin: No - Mwgzoqbs-Sx-Swm-Fe- FA tab Take 1 tablet by mouth [...] 05/06/2009 01/23/2010 Routine general medical examination at [facility]*01/23/2010 12/06/2012 Class: Chronic Routine gynecological examination [Z01.419] 01/23/2010 02/22/2014 Class: Chronic Morbid Obesity [E66.01] 01/23/2010 Lumbar Disc Disorder [M51.9] 02/16/2010 Routine general medical examination at [facility]*12/06/2012 02/22/2014 Anxiety [F41.9] 06/07/2014 Type [...] 09/04/2022 11 (more content not included)... 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 Excited for this because will not be as physical. Reviewed labs recently done at [facility]. A1c was 6.7. ldl was [...] as needed for wheezing/shortness of breath. Ipratropium What Cheer (ATROVENT) 21 mcg (0.03 %) nasal spray [...] 1 Each by INTRAUTERINE route as directed. [place]-3 Fatty Acids (FISH OIL) 500 mg cap Take 1 capsule by mouth once daily. blood sugar diagnostic (BLOOD GLUCOSE TEST) test strip Test blood sugar(s) 1 times daily. Dx: Type 2 DM - Controlled E11.9 Insulin: Yes Lancets lancets Test blood sugar(s) 1 times daily. Dx: Type 2 DM - Controlled E11.9 Insulin: No Kdfgkrhi-Ra-Cgd-Fe- FA tab Take 1 tablet by mouth [...] Age of Onset Alcohol/Drug Mother Heart Father DC Cancer Father PANCREATIC CANCER Diabetes Father Coronary [...] surgical h (more content not included)... Normal [facility]-05[facility]20[facility] TORI G[facility] ([id number]) 1980 F Date Time Provider Department 08/05/24 IVETTE GRIMES [facility] During your visit today, we recorded the following information about you: Dennise Robles MA 08/06/2024 10:44 AM Signed APPROVAL. O[facility]PPEGGY. [facility] # [id number] VALIDITY DATES 08/06/24-08/05/25 Pharmacy informed. Dennise Robles MA Allergies As of Date: 08/05/2024 Noted Allergy Reaction FARXIGA (DAPAGLIFLOZIN) 08/05/2024 8 - GI Upset LIDOCAINE 12/24/2019 4 - Hives METFORMIN 08/05/2024 8 - GI Upset STEROIDS (BETAMETHASONE DIPROPION* 2 4 - Hives Date Reviewed: 08/05/2024 Reviewed by: Nirmala Storey LPN - Fully Assessed Reason for Visit: Insurance Authorization [[id number]] Cmt: Ozempic Prescriptions as of 08/06/2024 - [...] needed for wheezing/shortness of breath. - Ipratropium What Cheer (ATROVENT) 21 mcg (0.03 %) nasal spray [...] Each by INTRAUTERINE route as directed. - [place]-3 Fatty Acids (FISH OIL) 500 mg cap Take 1 capsule by mouth once daily. - blood sugar diagnostic (BLOOD GLUCOSE TEST) test strip Test blood sugar(s) 1 times daily. Dx: Type 2 DM - Controlled E11.9 Insulin: Yes - Lancets lancets Test blood sugar(s) 1 times daily. Dx: Type 2 DM - Controlled E11.9 Insulin: No - Wtizryzw-Ev-Hlb-Fe- FA tab Take 1 tablet by mouth [...] 02/16/2010 Routine general medical examination at a [facility]*12/06/2012 02/22/2014 Anxiety [F41.9] 06/07/2014 Type 2 diabetes [...] 09/04/2022 11 (more content not included)... Normal [facility] Chiropractic Reporton 2023 Chiropractic Report [facility] Chiropractic [address] [place] [address] OFFICE VISIT Date of Service: 07/30/24 MR#: [id number] Acct: [id number] Name: TORI GRAY Rep #: [id number] : 1980 Provider: CONCEPCIÓN Montgomery Age/Sex: 44/F Location: [facility] Status: Signed Intake Vital Signs 03/09/24 14:53 Height 5 ft 7 in Intake Visit Reasons: Back pain Chief Complaint: low Back pain Is patient in pain?: Yes Pain scale (1-10): 8 Allergies Corticosteroids (Glucocorticoids) (steroids) Allergy (Verified 07/30/24 10:58) Hives lidocaine Adverse Reaction (Intermediate, Verified 07/30/24 10:58) Hives [facility] Medical History Abnormal ECG Prolonged Q-T [...] L4, Thoracic (more content not included)... Normal [facility] Chest PA and Lateralon 07-22 Chest PA and Lateral [facility] Imaging Services [address] [place], [place] [address] Chest PA and Lateral MR#: [id number] Acct: [id number] Name: TORI GRAY Rep #: [id number] : 1980 F 44 From: Gregorio barry MD PCP: Dr. Ivette Grimes MD Status: [facility] Study: Chest PA and Lateral Date of Exam: 07/22/24 Exam# [id number] Ordering Dr: Ivette Grimes MD -[id number] STUDY: X-RAY CHEST REASON FOR EXAM: [...] EDT , CC: Dr. Ivette Grimes MD Breakfast Attendant: Signed Normal [facility] TORI GRAY ([id number]) 1980 F Date Time Provider Department 07/21/24 IVETTE GRIMES [facility] During your visit today, we recorded the following information about you: Gale Bowre RN 07/21/2024 1:46 PM Signed Patient calls [...] notified. Requested to have order faxed to [facility]. Order faxed. Ingrid Salmon MA Allergies As of Date: 07/21/2024 Noted Allergy Reaction LIDOCAINE 12/24/2019 4 - Hives STEROIDS (BETAMETHASONE DIPROPION*02/17/202 2 4 - Hives Date Reviewed: 07/03/2024 Reviewed by: Nirmala Storey LPN - Fully Assessed Reason for Visit: Orders [681] Primary Visit Diagnosis:Cough, unspecified type [R05.9] Order(s):XR CHEST 2V FRONTAL/LAT [[id number]] Order #: [id number] FUTURE Prescriptions as of 07/21/2024 - dapagliflozin [...] needed for wheezing/shortness of breath. - Ipratropium What Cheer (ATROVENT) 21 mcg (0.03 %) nasal spray [...] Each by INTRAUTERINE route as directed. - [place]-3 Fatty Acids (FISH OIL) 500 mg cap Take 1 capsule by mouth once daily. - blood sugar diagnostic (BLOOD GLUCOSE TEST) test strip Test blood sugar(s) 1 times daily. Dx: Type 2 DM - Controlled E11.9 Insulin: Yes - Lancets lancets Test blood sugar(s) 1 times daily. Dx: Type 2 DM - Controlled E11.9 Insulin: No - Lcmlkzpo-Nn-Iwq-Fe- FA tab Take 1 tablet by mouth [...] 05/06/2009 01/23/2010 Routine general medical examination at [facility]*01/23/2010 12/06/2012 Class: Chronic Routine gynecological examination [Z01.419] 01/23/2010 02/22/2014 Class: Chronic Morbid Obesity [E66.01] 01/23/2010 Lumbar Disc Disorder [M51.9] 02/16/2010 Routine general medical examination at [facility]*12/06/2012 02/22/2014 Anxiety [F41.9] 06/07/2014 Type [...] lumbar intervertebr (more content not included)... Normal [facility] Chiropractic Reporton 2023 Chiropractic Report [facility] Chiropractic [address] [place] [address] OFFICE VISIT Date of Service: 07/16/24 MR#: [id number] Acct: [id number] Name: TORI GRAY Rep #: [id number] : 1980 Provider: CONCEPCIÓN Montgomery Age/Sex: 44/F Location: [facility] Status: Signed Intake Vital Signs 03/09/24 14:53 [...] work activities. 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 Normal [facility] 07-09-2024 [facility] Telephone ([facility]) ---- TORI GRAY ([id number]) 1980 F Date Time Provider Department 07/09/[facility] visit today, we recorded [...] microalbuminuria, with long-term current use of insulin ([facility]) [E11.29, R80.9, Z79.4] Order(s):dapagliflo zin [...] needed for wheezing/shortness of breath. - Ipratropium What Cheer (ATROVENT) 21 mcg (0.03 %) nasal spray [...] Each by INTRAUTERINE route as directed. - [place]-3 Fatty Acids (FISH OIL) 500 mg cap Take 1 capsule by mouth once daily. - blood sugar diagnostic (BLOOD GLUCOSE TEST) test strip Test blood sugar(s) 1 times daily. Dx: Type 2 DM - Controlled E11.9 Insulin: Yes - Lancets lancets Test blood sugar(s) 1 times daily. Dx: Type 2 DM - Controlled E11.9 Insulin: No - Dzkvufom-Mo-Xqy-Fe- FA tab Take 1 tablet by mouth [...] 01/23/2010 Routine general medical examination at a [facility]*01/23/2010 12/06/2012 Class: Chronic Routine gynecological examination [Z01.419] 01/23/2010 02/22/2014 Class: Chronic Morbid Obesity [E66.01] 01/23/2010 Lumbar Disc Disorder [M51.9] 02/16/2010 Routine general medical examination at a [facility]*12/06/2012 02/22/2014 Anxiety [F41.9] 06/07/2014 Typ (more content not included)... [facility] ---- TORI GRAY ([id number]) 1980 F Date Time Provider Department 07/08/24 IVETTE GRIMES [facility] During your visit today, we [...] needed for wheezing/shortness of breath. - Ipratropium What Cheer (ATROVENT) 21 mcg (0.03 %) nasal spray [...] Each by INTRAUTERINE route as directed. - [place]-3 Fatty Acids (FISH OIL) 500 mg cap Take 1 capsule by mouth once daily. - blood sugar diagnostic (BLOOD GLUCOSE TEST) test strip Test blood sugar(s) 1 times daily. Dx: Type 2 DM - Controlled E11.9 Insulin: Yes - Lancets lancets Test blood sugar(s) 1 times daily. Dx: Type 2 DM - Controlled E11.9 Insulin: No - Cwfbylqo-Ki-Bgi-Fe- FA tab Take 1 tablet by mouth [...] 05/06/2009 01/23/2010 Routine general medical examination at [facility]*01/23/2010 12/06/2012 Class: Chronic Routine gynecological examination [Z01.419] 01/23/2010 02/22/2014 Class: Chronic Morbid Obesity [E66.01] 01/23/2010 Lumbar Disc Disorder [M51.9] 02/16/2010 Routine general medical examination at [facility]*12/06/2012 02/22/2014 Anxiety [F41.9] 06/07/2014 Type [...] upper extre (more content not included)... Normal [facility] HBA1C (OUTSIDE)on 07-08-2024 HbA1c (Bld) [Mass fraction] 6.7 % [facility] LIPID PANEL (OUTSIDE)on Cholesterol [Mass/Vol] 195 mg/dL [place] Cholesterol in HDL [Mass/Vol] 35 mg/dL [facility] Cholesterol in LDL [Mass/Vol] 105 mg/dL [facility] LDL:HDL Ratio [facility] Non-HDL Cholesterol [facility] TC:HDL Ratio [facility] Triglyceride [Mass/Vol] 274 mg/dL C [facility] VLDL Cholesterol 55 [facility] No Panel Informationon 07-08 [facility] MICROALBUMIN/CREATININE UR W RATIO (EXTERNAL)Ordered By: Lubna Yoon on 07-04-2024 Albumin/Creat Ratio 93 [facility] Creatinine Urine 164 [facility] Microalbumin, Random urine 153 [facility] CNOVon 07-03-2024 CNOV Office Visit (FAMPWS) ---- TORI GRAY ([id number]) 1980 F Date Time Provider Department 07/03/24 3:40 PM [facility] During your visit today, we recorded [...] as needed for wheezing/shortness of breath. Ipratropium What Cheer (ATROVENT) 21 mcg (0.03 %) nasal spray [...] 1 Each by INTRAUTERINE route as directed. [place]-3 Fatty Acids (FISH OIL) 500 mg cap Take 1 capsule by mouth once daily. blood sugar diagnostic (BLOOD GLUCOSE TEST) test strip Test blood sugar(s) 1 times daily. Dx: Type 2 DM - Controlled E11.9 Insulin: Yes Lancets lancets Test blood sugar(s) 1 times daily. Dx: Type 2 DM - Controlled E11.9 Insulin: No Uiyjmoll-Cq-Bwj-Fe- FA tab Take 1 tablet by mouth [...] Age of Onset Alcohol/Drug Mother Heart Father DC Cancer Father PANCREATIC CANCER Diabetes Father Coronary [...] in no (more content not included)... Normal [facility] Absolute lymphocyte countOrd ered By: Sam Pearl on 02-04-2024 Lymphocytes Auto (Unsp spec) [#/Vol] 2.24 10*3/uL 0.83-4.51 [facility] Automated lymphocyte count a s percentage of total leukocytesOrdered By: Sam Pearl on 02-04-2024 Lymphocytes/100 WBC Auto (Unsp spec) 19.8 % 19-41 [facility] Basophil percentageOrdered B y: Sam Pearl on 02-04-2024 Basophils/100 WBC (Bld) 0.4 % 0-1 [facility] Chloride [Moles/Vol] 106 mmol/L 98-107 [facility] Eosinophils/100 WBC (Bld) 0.9 % 0-5 [facility] Glucose [Mass/Vol] 246 mg/dL 74-106 [facility] Comment on above: Glucose result great er than or equal to 200 mg/dLsuggests DIABETES MELLITUS per A.D.A. criteria. Hemoglobin (Bld) [Mass/Vol] 11.2 g/dL 12.0-15.0 [facility] Monocytes/100 WBC (Bld) 6.6 % 0-10 [facility] Neutrophils (Bld) [#/Vol] 8.0 10*3/uL 2.0-7.7 [facility] Neutrophils/100 WBC (Bld) 71.0 % 47-70 [facility] Potassium [Moles/Vol] 3.6 mmol/L 3.5-5.1 [facility] Sodium [Moles/Vol] 135 mmol/L 136-145 [facility] WBC (Bld) [#/Vol] 11.3 10*3/uL 4.4-11.0 [facility] Basophil percentage 10-25 SEEN /hpf 0-5 [facility] Bilirubin Test strip Ql (U)O rdered By: Sam Pearl on 02-04-2024 Bilirubin Ql (U) Negative Negative [facility] Determination of erythrocyte mean corpuscular volume (MCV)Ordered By: Sam Pearl on 02-04-2024 MCV (RBC) [Entitic vol] 89.5 fL 81-99 [facility] Erythrocyte distribution wid th ratioOrdered By: Sam Pearl on 02-04-2024 Erythrocyte distribution width (RBC) [Ratio] 13.2 % 11.6-14.6 [facility] Erythrocyte distribution wid th standard deviationOrdered By: Sam Pearl on 02-04-2024 Erythrocyte distribution width (RBC) [Entitic vol] 43.2 fL 35.1-43.9 [facility] Hematocrit Auto (Bld) [Volum e fraction]Ordered By: Sam Pearl on 02-04-2024 Hematocrit (Bld) [Volume fraction] 34.2 % 37-47 [facility] Immature granulocytes/100 WB C Auto (Bld)Ordered By: Sam Pearl on 02-04-2024 Immature granulocytes/100 WBC (Bld) 1.300 % 0.0-0.9 [facility] Comment on above: IG% - Immature Granu locytes (promyelocytes, myelocytes and metamyelocytes) > 1% indicates that a LEFT SHIFT is Present. Ketones Test strip Ql (U)Ord ered By: Sam Pearl on 02-04-2024 Ketones Ql (U) Negative Negative [facility] Laboratory - Chemistry and C hemistry - challengeOrdered By: Sam Pearl on 02-04-2024 CO2 [Moles/Vol] 21.0 mmol/L 21.0-32.0 [facility] Urea nitrogen/Creatinine [Mass ratio] 15.0 mg/mg 10-20 [facility] Laboratory - Hematology and Cell countsOrdered By: Sam Pearl on 02-04-2024 MCH (RBC) [Entitic mass] 29.3 pg 27.0-32.0 [facility] MCHC (RBC) [Mass/Vol] 32.7 g/dL 32- [facility] Nucleated RBC/100 WBC (Bld) [Ratio] 0 % 0-5 [facility] Platelet mean volume (Bld) [Entitic vol] 9.2 fL 6.2-12.0 [facility] Platelets (Bld) [#/Vol] 203 10*3/uL 150-450 [facility] Laboratory - Microbiology an d Antimicrobial susceptibilityOrdered By: Sam Pearl on 02-04-2024 SARS-CoV-2 (COVID-19) RNA ALLYSON+probe Ql (Unsp spec) [facility] Mucus LM Ql (Urine sed)Order ed By: Sam Pearl on 02-04-2024 Mucus Ql (Urine sed) 0 SEEN /hpf [facility] Nitrite Test strip Ql (U)Ord ered By: Sam Pearl on 02-04-2024 Nitrite Ql (U) Negative Negative [facility] No Panel InformationOrdered By: Sam Pearl on 02-04-2024 Estimated Creatinine Clearance Calc 116.68 ml/min [facility] Estimated GFR (MDRD) Amer 92 mL/min >60 [facility] Comment on above: GFR Calc Estimated GFR (MDRD) Non-Af Amer 76 mL/min >60 [facility] Comment on above: Non- GFR Calc Urine RBC 0-5 SEEN /hpf 0-5 [facility] Protein Test strip Ql (U)Ord ered By: Sam Pearl on 02-04-2024 Protein Ql (U) 15 mg/dl Negative [facility] RBC Auto (Bld) [#/Vol]Ordere d By: Sam Pearl on 02-04-2024 RBC (Bld) [#/Vol] 3.82 10*6/uL 4.2-5.4 [facility] Serum or plasma calcium sharron urement (mass/volume)Ordered By: Sam Pearl on 02-04-2024 Calcium [Mass/Vol] 8.4 mg/dL 8.5-10.1 [facility] Serum or plasma creatinine m easurement (mass/volume)Ordered By: Sam Pearl on 02-04-2024 Creatinine [Mass/Vol] 0.87 mg/dL 0.55-1.02 [facility] Comment on above: The validity of the calculated GFR & GFRAA in patients over 70 years has not been determined. Clinical correlation is essential. Serum or plasma urea nitroge n measurement (mass/volume)Ordered By: Sam Pearl on 02-04-2024 Urea nitrogen [Mass/Vol] 13 mg/dL 7-18 [facility] Squamous epithelial cells de tection in urine sediment by light microscopyOrdered By: Sam Pearl on 02-04-2024 Epithelial cells.squamous LM Ql (Urine sed) 0-5 SEEN /hpf 5-10 [facility] Thin prep Papanicolaou smear with manual screeningOrdered By: Sam Pearl on 02-04-2024 Thin prep Papanicolaou smear with manual screening 8 5-15 [facility] Urine blood detectionOrdered By: Sam Pearl on 02-04-2024 RBC Ql (U) 10 /ul Negative [facility] Urine clarityOrdered By: Ramses Pearl on 02-04-2024 Clarity (U) Clear Clear [facility] Urine color determinationOrd ered By: Sam Pearl on 02-04-2024 Color (U) Yellow Yellow [facility] Urine glucose detectionOrder ed By: Sam Pearl on 02-04-2024 Glucose Ql (U) Normal mg/dl Normal [facility] Urine leukocyte esterase det ection by dipstickOrdered By: Sam Pearl on 02-04-2024 Leukocyte esterase Test strip Ql (U) 100 /ul Negative [facility] Urine pHOrdered By: Sam Pearl on 02-04-2024 pH (U) 7.0 [pH] 5.0 - 8.0 [facility] Urine sediment bacteria coun t by microscopy (number/high power field)Ordered By: Sam Pearl on 02-04-2024 Bacteria LM.HPF (Urine sed) [#/Area] 4 /[HPF] None Seen [facility] Urine specific gravity measu rementOrdered By: Sam Pearl on 02-04-2024 Specific gravity (U) [Rel density] 1.010 1.002-1.030 [facility] Urine urobilinogen measureme ntOrdered By: Sam Pearl on 02-04-2024 Urobilinogen Ql (U) Normal mg/dl Normal [facility] Absolute lymphocyte countOrd ered By: Ivette Grimes on 12-06-2023 Lymphocytes Auto (Unsp spec) [#/Vol] 2.89 10*3/uL 0.83-4.51 [facility] Automated lymphocyte count a s percentage of total leukocytesOrdered By: Ivette Grimes on 12-06-2023 Lymphocytes/100 WBC Auto (Unsp spec) 27.0 % 19-41 [facility] Basophil percentageOrdered B y: Ivette Grimes on 12-06-2023 Basophils/100 WBC (Bld) 0.7 % 0-1 [facility] Bilirubin [Mass/Vol] 0.50 mg/dL 0.20-1.00 [facility] Comment on above: For patients on eltr ombopag therapy, use of Dimension [place] TBIL is not recommended. Chloride [Moles/Vol] 113 mmol/L 98-107 [facility] Cholesterol [Mass/Vol] 202 mg/dL <200 [facility] Comment on above: <200 mg/dL Desirable 200-240 mg/dL Borderline >240 mg/dL High Risk Eosinophils/100 WBC (Bld) 1.4 % 0-5 [facility] Glucose [Mass/Vol] 113 mg/dL 74-106 [facility] Comment on above: Fasting Glucose resu lt from 100 to 125 mg/dL suggests IMPAIRED HOMEOSTASIS per A.D.A. criteria. Hemoglobin (Bld) [Mass/Vol] 13.1 g/dL 12.0-15.0 [facility] Monocytes/100 WBC (Bld) 3.6 % 0-10 [facility] Neutrophils (Bld) [#/Vol] 7.1 10*3/uL 2.0-7.7 [facility] Neutrophils/100 WBC (Bld) 66.3 % 47-70 [facility] Potassium [Moles/Vol] 4.0 mmol/L 3.5-5.1 [facility] Protein [Mass/Vol] 8.7 g/dL 6.4-8.2 [facility] Sodium [Moles/Vol] 138 mmol/L 136-145 [facility] Triglyceride [Mass/Vol] 192 mg/dL <199 [facility] Comment on above: The drugs N-Acetylcy steine and Metamizole may falsely depress this assay.Serum Triglycerides Reference Interval Normal <150 mg/dL Borderline high 150 - 199 mg/dL High 200 - 499 mg/dL Very High > or = 500 mg/dL WBC (Bld) [#/Vol] 10.7 10*3/uL 4.4-11.0 [facility] Determination of erythrocyte mean corpuscular volume (MCV)Ordered By: Ivette Grimes on 12-06-2023 MCV (RBC) [Entitic vol] 92.8 fL 81-99 [facility] Erythrocyte distribution wid th ratioOrdered By: Ivette Grimes on 12-06-2023 Erythrocyte distribution width (RBC) [Ratio] 13.1 % 11.6-14.6 [facility] Erythrocyte distribution wid th standard deviationOrdered By: Ivette Grimes on 12-06-2023 Erythrocyte distribution width (RBC) [Entitic vol] 44.4 fL 35.1-43.9 [facility] Hematocrit Auto (Bld) [Volum e fraction]Ordered By: Ivette Grimes on 12-06-2023 Hematocrit (Bld) [Volume fraction] 39.9 % 37-47 [facility] Immature granulocytes/100 WB C Auto (Bld)Ordered By: Ivette Grimes on 12-06-2023 Immature granulocytes/100 WBC (Bld) 1.000 % 0.0-0.9 [facility] Comment on above: IG% - Immature Granu locytes (promyelocytes, myelocytes and metamyelocytes) > 1% indicates that a LEFT SHIFT is Present. Laboratory - Chemistry and C hemistry - challengeOrdered By: Ivette Grimes on 12-06-2023 Albumin/Globulin [Mass ratio] 0.9 {ratio} 0.9-2.4 [facility] ALP [Catalytic activity/Vol] 80 U/L 45-117 [facility] ALT [Catalytic activity/Vol] 24 U/L 13-56 [facility] Cholesterol in HDL (Body fld) [Mass/Vol] 36 mg/dL >40 [facility] Comment on above: The drugs N-Acetylcy steine and Metamizole may falsely depress this assay. Reference Range HDL <40 mg/dL Low HDL Cholesterol HDL >or= 60 mg/dL High HDL Cholesterol Cholesterol in LDL (Body fld) [Moles/Vol] 128 mg/dL 0-130 [facility] Cholesterol in VLDL Calc [Moles/Vol] 38 mg/dL 5-40 [facility] CO2 [Moles/Vol] 19.0 mmol/L 21.0-32.0 [facility] Globulin (S) [Mass/Vol] 4.6 g/dL 2.2-4.2 [facility] Urea nitrogen/Creatinine [Mass ratio] 25.9 mg/mg 10-20 [facility] Laboratory - Hematology and Cell countsOrdered By: Ivette Grimes on 12-06-2023 MCH (RBC) [Entitic mass] 30.5 pg 27.0-32.0 [facility] MCHC (RBC) [Mass/Vol] 32.8 g/dL 32-36 [facility] Nucleated RBC/100 WBC (Bld) [Ratio] 0 % 0-5 [facility] Platelets (Bld) [#/Vol] 241 10*3/uL 150-450 [facility] No Panel InformationOrdered By: Ivette Grimes on 12-06-2023 Estimated GFR (MDRD) Amer 90 mL/min >60 [facility] Comment on above: GFR Calc Estimated GFR (MDRD) Non-Af Amer 74 mL/min >60 [facility] Comment on above: Non- GFR Calc Platelet mean volume Jose-Ec ker (Bld) [Entitic vol]Ordered By: Ivette Grimes on 12-06-2023 Platelet mean volume (Bld) [Entitic vol] 8.8 fL 6.2-12.0 [facility] RBC Auto (Bld) [#/Vol]Ordere d By: Ivette Grimes on 12-06-2023 RBC (Bld) [#/Vol] 4.30 10*6/uL 4.2-5.4 [facility] Serum or plasma calcium sharron urement (mass/volume)Ordered By: Ivette Grimes on 12-06-2023 Calcium [Mass/Vol] 9.1 mg/dL 8.5-10.1 [facility] Serum or plasma creatinine m easurement (mass/volume)Ordered By: Ivette Grimes on 12-06-2023 Creatinine [Mass/Vol] 0.89 mg/dL 0.55-1.02 [facility] Comment on above: The validity of the calculated GFR & GFRAA in patients over 70 years has not been determined. Clinical correlation is essential. Serum or plasma urea nitroge n measurement (mass/volume)Ordered By: Ivette Grimes on 12-06-2023 Urea nitrogen [Mass/Vol] 23 mg/dL 7-18 [facility] Thin prep Papanicolaou smear with manual screeningOrdered By: Ivette Grimes on 12-06-2023 Thin prep Papanicolaou smear with manual screening 4.1 g/dL 3.2-5.0 [facility] Thin prep Papanicolaou smear with manual screening 11 U/L 15-37 [facility] Thin prep Papanicolaou smear with manual screening 6 5-15 [facility] Whole blood hemoglobin A1c/t otal hemoglobin ratio (mass fraction)Ordered By: Ivette Grimes on 12-06-2023 HbA1c (Bld) [Mass fraction] 5.7 % 3.8-5.6 [facility] Comment on above: Normal < 5.7 % Predi abetic 5.7 - 6.4 % Diabetic >or= 6.5 % Please note range changes. Glucose Glucometer (BldC) [M ass/Vol]Ordered By: Sosa Mendez on 08-07-2023 Glucose [Mass/Vol] 157 mg/dL 74-106 [facility] Comment on above: MANAGEMENT OF PATIEN T CARE PER NURSING PROTOCOL Absolute lymphocyte countOrd ered By: Sosazackary Mendez on 08-06-2023 Lymphocytes Auto (Unsp spec) [#/Vol] 2.45 10*3/uL 0.83-4.51 [facility] Basophil percentageOrdered B y: Sosa Vanessa on 08-06-2023 Basophils/100 WBC (Bld) 0.8 % 0-1 [facility] Chloride [Moles/Vol] 111 mmol/L 98-107 [facility] Cholesterol [Mass/Vol] 173 mg/dL <200 [facility] Comment on above: <200 mg/dL Desirable 200-240 mg/dL Borderline >240 mg/dL High Risk Eosinophils/100 WBC (Bld) 3.1 % 0-5 [facility] Glucose [Mass/Vol] 143 mg/dL 74-106 [facility] Comment on above: Fasting Glucose resu lt greater than or equal to 126 mg/dL suggests DIABETES MELLITUS per A.D.A. criteria. Neutrophils (Bld) [#/Vol] 3.9 10*3/uL 2.0-7.7 [facility] Neutrophils/100 WBC (Bld) 54.5 % 47-70 [facility] Potassium [Moles/Vol] 3.6 mmol/L 3.5-5.1 [facility] Sodium [Moles/Vol] 139 mmol/L 136-145 [facility] Triglyceride [Mass/Vol] 325 mg/dL <199 [facility] Comment on above: The drugs N-Acetylcy steine and Metamizole may falsely depress this assay.Serum Triglycerides Reference Interval Normal <150 mg/dL Borderline high 150 - 199 mg/dL High 200 - 499 mg/dL Very High > or = 500 mg/dL WBC (Bld) [#/Vol] 7.1 10*3/uL 4.4-11.0 [facility] Blood erythrocytes count (nu mber/volume)Ordered By: Sosa Mendez on 08-06-2023 RBC (Bld) [#/Vol] 4.15 10*6/uL 4.2-5.4 [facility] Blood hemoglobin measurement (mass/volume)Ordered By: Sosa Mendez on 08-06-2023 Hemoglobin (Bld) [Mass/Vol] 13.0 g/dL 12.0-15.0 [facility] Blood lymphocytes/100 leukoc ytesOrdered By: Sosa Mendez on 08-06-2023 Lymphocytes/100 WBC (Bld) 34.4 % 19-41 [facility] Blood monocytes/100 leukocyt esOrdered By: Sosa Mendez on 08-06-2023 Monocytes/100 WBC (Bld) 5.2 % 0-10 [facility] Blood platelet mean volumeOr dered By: Sosa Mendez on 08-06-2023 Platelet mean volume (Bld) [Entitic vol] 9.4 fL 6.2-12.0 [facility] Determination of erythrocyte mean corpuscular volume (MCV)Ordered By: Sosa Mendez on 08-06-2023 MCV (RBC) [Entitic vol] 95.4 fL 81-99 [facility] Hematocrit Auto (Bld) [Volum e fraction]Ordered By: Sosa Mendez on 08-06-2023 Hematocrit (Bld) [Volume fraction] 39.6 % 37-47 [facility] Laboratory - Chemistry and C hemistry - challengeOrdered By: Sosa Mendez on 08-06-2023 CO2 [Moles/Vol] 23.0 mmol/L 21.0-32.0 [facility] Urea nitrogen/Creatinine [Mass ratio] 15.4 mg/mg 10-20 [facility] Laboratory - Hematology and Cell countsOrdered By: Sosa Mendez on 08-06-2023 Erythrocyte distribution width (RBC) [Entitic vol] 45.4 fL 35.1-43.9 [facility] Erythrocyte distribution width (RBC) [Ratio] 13.0 % 11.6-14.6 [facility] Immature granulocytes/100 WBC (Bld) 2.000 % 0.0-0.9 [facility] Comment on above: IG% - Immature Granu locytes (promyelocytes, myelocytes and metamyelocytes) > 1% indicates that a LEFT SHIFT is Present. MCH (RBC) [Entitic mass] 31.3 pg 27.0-32.0 [facility] Nucleated RBC/100 WBC (Bld) [Ratio] 0 % 0-5 [facility] MCHC Auto (RBC) [Mass/Vol]Or dered By: Sosa Mendez on 08-06-2023 MCHC (RBC) [Mass/Vol] 32.8 g/dL 32-36 [facility] No Panel InformationOrdered By: Sosa Mendez on 08-06-2023 Estimated Creatinine Clearance Calc 92.30 ml/min [facility] Estimated GFR (MDRD) Amer 104 mL/min >60 [facility] Comment on above: GFR Calc Estimated GFR (MDRD) Non-Af Amer 86 mL/min >60 [facility] Comment on above: Non- GFR Calc Platelets bldOrdered By: Shanell Mendez on 08-06-2023 Platelets (Bld) [#/Vol] 184 10*3/uL 150-450 [facility] Serum or plasma calcium sharron urement (mass/volume)Ordered By: Sosa Mendez on 08-06-2023 Calcium [Mass/Vol] 8.2 mg/dL 8.5-10.1 [facility] Serum or plasma cholesterol in HDL measurement (mass/volume)Ordered By: Sosa Mendez on 08-06-2023 Cholesterol in HDL [Mass/Vol] 29 mg/dL >40 [facility] Comment on above: The drugs N-Acetylcy steine and Metamizole may falsely depress this assay. Reference Range HDL <40 mg/dL Low HDL Cholesterol HDL >or= 60 mg/dL High HDL Cholesterol Serum or plasma cholesterol in VLDL measurement (mass/volume)Ordered By: Sosa Mendez on 08-06-2023 Cholesterol in VLDL [Mass/Vol] 65 mg/dL 5-40 [facility] Serum or plasma creatinine m easurement (mass/volume)Ordered By: Sosa Mendez on 08-06-2023 Creatinine [Mass/Vol] 0.78 mg/dL 0.55-1.02 [facility] Comment on above: The validity of the calculated GFR & GFRAA in patients over 70 years has not been determined. Clinical correlation is essential. Serum or plasma low density lipoprotein (LDL) cholesterol measurement (mass/volume)Ordered By: Sosa Mendez on 08-06-2023 Cholesterol in LDL [Mass/Vol] 79 mg/dL 0-130 [facility] Serum or plasma urea nitroge n measurement (mass/volume)Ordered By: Sosa Mendez on 08-06-2023 Urea nitrogen [Mass/Vol] 12 mg/dL 7-18 [facility] Thin prep Papanicolaou smear with manual screeningOrdered By: Sosa Mendez on 08-06-2023 Thin prep Papanicolaou smear with manual screening 5 5-15 [facility] Absolute lymphocyte countOrd ered By: Niurka Kendall on 08-05-2023 Lymphocytes Auto (Unsp spec) [#/Vol] 2.33 10*3/uL 0.83-4.51 [facility] Basophil percentageOrdered B y: Niurka Kendall on 08-05-2023 Basophils/100 WBC (Bld) 0.9 % 0-1 [facility] Chloride [Moles/Vol] 110 mmol/L 98-107 [facility] Eosinophils/100 WBC (Bld) 2.6 % 0-5 [facility] Glucose [Mass/Vol] 108 mg/dL 74-106 [facility] Comment on above: Fasting Glucose resu lt from 100 to 125 mg/dL suggests IMPAIRED HOMEOSTASIS per A.D.A. criteria. Neutrophils (Bld) [#/Vol] 4.7 10*3/uL 2.0-7.7 [facility] Neutrophils/100 WBC (Bld) 59.9 % 47-70 [facility] Potassium [Moles/Vol] 3.7 mmol/L 3.5-5.1 [facility] Sodium [Moles/Vol] 140 mmol/L 136-145 [facility] WBC (Bld) [#/Vol] 7.8 10*3/uL 4.4-11.0 [facility] Blood erythrocytes count (nu mber/volume)Ordered By: Niurka Kendall on 08-05-2023 RBC (Bld) [#/Vol] 4.04 10*6/uL 4.2-5.4 [facility] Blood hemoglobin measurement (mass/volume)Ordered By: Niurka Kendall on 08-05-2023 Hemoglobin (Bld) [Mass/Vol] 12.9 g/dL 12.0-15.0 [facility] Blood lymphocytes/100 leukoc ytesOrdered By: Niurka Kendall on 08-05-2023 Lymphocytes/100 WBC (Bld) 30.1 % 19-41 [facility] Blood monocytes/100 leukocyt esOrdered By: Niurka Kendall on 08-05-2023 Monocytes/100 WBC (Bld) 5.2 % 0-10 [facility] Blood platelet mean volumeOr dered By: Niurka Kendall on 08-05-2023 Platelet mean volume (Bld) [Entitic vol] 9.7 fL 6.2-12.0 [facility] COVID-19 virus antigen assay Ordered By: Niurka Kendall on 08-05-2023 SARS-CoV-2 (COVID-19) Ag IA.rapid Ql (Resp) [facility] SARS-CoV-2 (COVID-19) Ag IA.rapid Ql (Resp) [facility] Determination of erythrocyte mean corpuscular volume (MCV)Ordered By: Niurka Kendall on 08-05-2023 MCV (RBC) [Entitic vol] 97.8 fL 81-99 [facility] Glucose Glucometer (BldC) [M ass/Vol]Ordered By: Niurka Kendall on 08-05-2023 Glucose [Mass/Vol] 120 mg/dL 74-106 [facility] Comment on above: MANAGEMENT OF PATIEN T CARE PER NURSING PROTOCOL Hematocrit Auto (Bld) [Volum e fraction]Ordered By: Niurka Kendall on 08-05-2023 Hematocrit (Bld) [Volume fraction] 39.5 % 37-47 [facility] INR in Blood by Coagulation assayOrdered By: Niurka Kendall on 08-05-2023 INR Coag (Bld) [Relative time] 1.1 {INR} [facility] Laboratory - Chemistry and C hemistry - challengeOrdered By: Niurka Kendall on 08-05-2023 CO2 [Moles/Vol] 24.0 mmol/L 21.0-32.0 [facility] Urea nitrogen/Creatinine [Mass ratio] 20.8 mg/mg 10-20 [facility] Laboratory - CoagulationOrde red By: Niurka Kendall on 08-05-2023 aPTT Coag (Bld) [Time] 32.7 s 24.1-36.2 [facility] PT Coag (PPP) [Time] 14.4 s 11.7-14.9 [facility] Laboratory - Hematology and Cell countsOrdered By: Niurka Kendall on 08-05-2023 Erythrocyte distribution width (RBC) [Entitic vol] 47.0 fL 35.1-43.9 [facility] Erythrocyte distribution width (RBC) [Ratio] 13.1 % 11.6-14.6 [facility] Immature granulocytes/100 WBC (Bld) 1.300 % 0.0-0.9 [facility] Comment on above: IG% - Immature Granu locytes (promyelocytes, myelocytes and metamyelocytes) > 1% indicates that a LEFT SHIFT is Present. MCH (RBC) [Entitic mass] 31.9 pg 27.0-32.0 [facility] Nucleated RBC/100 WBC (Bld) [Ratio] 0 % 0-5 [facility] MCHC Auto (RBC) [Mass/Vol]Or dered By: Niurka Kendall on 08-05-2023 MCHC (RBC) [Mass/Vol] 32.7 g/dL 32-36 [facility] No Panel InformationOrdered By: Niurka Kendall on 08-05-2023 Estimated Creatinine Clearance Calc 99.99 ml/min [facility] Estimated GFR (MDRD) Amer 115 mL/min >60 [facility] Comment on above: GFR Calc Estimated GFR (MDRD) Non-Af Amer 95 mL/min >60 [facility] Comment on above: Non- GFR Calc Thyroid Stimulating Hormone (TSH) 1.54 uIU/mL 0.358-3.74 [facility] Troponin I High Sensitivity 4 pg/mL 3.0-54.0 [facility] Comment on above: Please Note: New Ananth t Units and Gender Specific Reference Ranges. For more information see Policy Stat Procedure [place] High Sensitivity Troponin (TNIH) and attachments. Platelets bldOrdered By: Romina Kendall on 08-05-2023 Platelets (Bld) [#/Vol] 190 10*3/uL 150-450 [facility] Serum or plasma calcium sharron urement (mass/volume)Ordered By: Niurka Kendall on 08-05-2023 Calcium [Mass/Vol] 8.5 mg/dL 8.5-10.1 [facility] Serum or plasma creatinine m easurement (mass/volume)Ordered By: Niurka Kendall on 08-05-2023 Creatinine [Mass/Vol] 0.72 mg/dL 0.55-1.02 [facility] Comment on above: The validity of the calculated GFR & GFRAA in patients over 70 years has not been determined. Clinical correlation is essential. Serum or plasma urea nitroge n measurement (mass/volume)Ordered By: Niurka Kendall on 08-05-2023 Urea nitrogen [Mass/Vol] 15 mg/dL 7-18 [facility] Thin prep Papanicolaou smear with manual screeningOrdered By: Niurka Kendall on 08-05-2023 Thin prep Papanicolaou smear with manual screening 6 5-15 [facility] Whole blood hemoglobin A1c/t otal hemoglobin ratio (mass fraction)Ordered By: Sosa Mendez on 08-05-2023 HbA1c (Bld) [Mass fraction] 6.6 % 3.8-5.6 [facility] Comment on above: Normal < 5.7 % Predi abetic 5.7 - 6.4 % Diabetic >or= 6.5 % Please note range changes. XR Foot - right AP and Later al and obliqueon 05-28-2023 IMPRESSION: No acute osseous abnormalities are identified. Calcaneal spurring. Breakfast Attendant: PSCB Transcribe Date/Time: May 28 2023 11:55A Dictated by : BRITTANY MCCANN MD This examination was interpreted and the report reviewed and electronically signed by: BRITTANY MCCANN MD on May 28 2023 11:56AM [facility] DIVISION OF RADIOLOGY * * *Final [...] and calcaneal enthesophytes. DIVISION OF RADIOLOGY Provider, [facility] - 05/28/2023 * * *Final Report* * [...] acute osseous abnormalities are identified. Calcaneal spurring. Breakfast Attendant: PSCB Transcribe Date/Time: May 28 2023 11:55A Dictated by : BRITTANY MCCANN MD This examination was interpreted and the report reviewed and electronically signed by: BRITTANY MCCANN MD on May 28 2023 11:56AM EST [facility] Radiology Study [facility] (narrative) [facility] X[facility] Foot - right AP and Later al and obliqueOrdered By: [facility] Provider on 05-28-2023 [facility] Absolute lymphocyte countOrd ered By: Dr. Grimes on 03-04-2023 Lymphocytes Auto (Unsp spec) [#/Vol] 2.34 10*3/uL 0.83-4.51 [facility] Basophil percentageOrdered B y: Dr. Grimes on 03-04-2023 Basophils/100 WBC (Bld) 1.0 % 0-1 [facility] Chloride [Moles/Vol] 109 mmol/L 98-107 [facility] [facility] Eosinophils/100 WBC (Bld) 2.3 % 0-5 [facility] Glucose [Mass/Vol] 142 mg/dL 74-106 [facility] Comment on above: Fasting Glucose resu lt greater than or equal to 126 mg/dL suggests DIABETES MELLITUS per A.D.A. criteria. Neutrophils (Bld) [#/Vol] 5.6 10*3/uL 2.0-7.7 [facility] Neutrophils/100 WBC (Bld) 63.9 % 47-70 [facility] Potassium [Moles/Vol] 3.9 mmol/L 3.5-5.1 [facility] Sodium [Moles/Vol] 138 mmol/L 136-145 [facility] WBC (Bld) [#/Vol] 8.8 10*3/uL 4.4-11.0 [facility] Blood erythrocytes count (nu mber/volume)Ordered By: Dr. Grimes on 03-04-2023 RBC (Bld) [#/Vol] 4.38 10*6/uL 4.2-5.4 [facility] Blood hemoglobin measurement (mass/volume)Ordered By: Dr. Grimes on 03-04-2023 Hemoglobin (Bld) [Mass/Vol] 14.1 g/dL 12.0-15.0 [facility] Blood lymphocytes/100 leukoc ytesOrdered By: Dr. Grimes on 03-04-2023 Lymphocytes/100 WBC (Bld) 26.5 % 19-41 [facility] Blood monocytes/100 leukocyt esOrdered By: Dr. Grimes on 03-04-2023 Monocytes/100 WBC (Bld) 4.6 % 0-10 [facility] Blood platelet mean volumeOr dered By: Dr. Grimes on 03-04-2023 Platelet mean volume (Bld) [Entitic vol] 9.5 fL 6.2-12.0 [facility] Determination of erythrocyte mean corpuscular volume (MCV)Ordered By: Dr. Grimes on 03-04-2023 MCV (RBC) [Entitic vol] 96.8 fL 81-99 [facility] Hematocrit Auto (Bld) [Volum e fraction]Ordered By: Dr. Grimes on 03-04-2023 Hematocrit (Bld) [Volume fraction] 42.4 % 37-47 [facility] Iron measurement (mass/mass) Ordered By: Dr. Grimes on 03-04-2023 Iron (Unsp spec) [Mass/Mass] 92 ug/dL 50-170 [facility] Laboratory - Chemistry and C hemistry - challengeOrdered By: Dr. Grimes on 03-04-2023 CO2 [Moles/Vol] 21.0 mmol/L 21.0-32.0 [facility] Magnesium [Mass/Vol] 1.7 mg/dL 1.6-2.6 [facility] Urea nitrogen/Creatinine [Mass ratio] 17.1 mg/mg 10-20 [facility] Laboratory - Hematology and Cell countsOrdered By: Dr. Grimes on 03-04-2023 Erythrocyte distribution width (RBC) [Entitic vol] 48.1 fL 35.1-43.9 [facility] Erythrocyte distribution width (RBC) [Ratio] 13.3 % 11.6-14.6 [facility] Immature granulocytes/100 WBC (Bld) 1.700 % 0.0-0.9 [facility] Comment on above: IG% - Immature Granu locytes (promyelocytes, myelocytes and metamyelocytes) > 1% indicates that a LEFT SHIFT is Present. MCH (RBC) [Entitic mass] 32.2 pg 27.0-32.0 [facility] Nucleated RBC/100 WBC (Bld) [Ratio] 0 % 0-5 [facility] MCHC Auto (RBC) [Mass/Vol]Or dered By: Dr. Grimes on 03-04-2023 MCHC (RBC) [Mass/Vol] 33.3 g/dL 32-36 [facility] No Panel InformationOrdered By: Dr. Grimes on 03-04-2023 Urine Microalbumin/Creatinine Ratio 63.0 mg/g CRE <30 [facility] Estimated GFR (MDRD) Amer 99 mL/min >60 [facility] Comment on above: GFR Calc Estimated GFR (MDRD) Non-Af Amer 82 mL/min >60 [facility] Comment on above: Non- GFR Calc Total Iron Binding Capacity 323 ug/dL 250-450 [facility] Platelets bldOrdered By: Dr. Grimes on 03-04-2023 Platelets (Bld) [#/Vol] 214 10*3/uL 150-450 [facility] Serum or plasma calcium sharron urement (mass/volume)Ordered By: Dr. Grimes on 03-04-2023 Calcium [Mass/Vol] 8.4 mg/dL 8.5-10.1 [facility] Serum or plasma creatinine m easurement (mass/volume)Ordered By: Dr. Grimes on 03-04-2023 Creatinine [Mass/Vol] 0.82 mg/dL 0.55-1.02 [facility] Comment on above: The validity of the calculated GFR & GFRAA in patients over 70 years has not been determined. Clinical correlation is essential. Serum or plasma iron saturat ion measurement (mass fraction)Ordered By: Dr. Grimes on 03-04-2023 Iron saturation [Mass fraction] 28.5 % 15.0-55.0 [facility] Serum or plasma urea nitroge n measurement (mass/volume)Ordered By: Dr. Grimes on 03-04-2023 Urea nitrogen [Mass/Vol] 14 mg/dL 7-18 [facility] Thin prep Papanicolaou smear with manual screeningOrdered By: Dr. Grimes on 03-04-2023 Thin prep Papanicolaou smear with manual screening 133.0 mg/L NO RANGE EST. [facility] Thin prep Papanicolaou smear with manual screening 8 5-15 [facility] Urine creatinine measurement (mass/volume)Ordered By: Dr. Grimes on 03-04-2023 Creatinine (U) [Mass/Vol] 211.00 mg/dL NO RANGE EST. [facility] Whole blood hemoglobin A1c/t otal hemoglobin ratio (mass fraction)Ordered By: Dr. Grimes on 03-04-2023 HbA1c (Bld) [Mass fraction] 6.1 % 3.8-5.6 [facility] Comment on above: Normal < 5.7 % Predi abetic 5.7 - 6.4 % Diabetic >or= 6.5 % Please note range changes. No Panel Informationon 02-28 [facility] CNCOon 01-24-2023 CNCO Letter Text Normal [facility] CNOVon 01-24-2023 CNOV Office Visit (SPAGWO) ---- TORI GRAY ([id number]) 1980 F Date Time Provider Department 01/24/23 10:30 AM ELLE SANCHEZ During your visit today, we recorded the following information about you: Pulse Respiration Last Period 64/minute 16/minute 01/02/23 Elle Sanchez MD 01/24/2023 11:07 AM Signed [facility] Name: Tori Gray : 1980 Purpose: Follow-up, discuss SPRINT Today's Date: 01/24/2023 Last Visit: 11/08/2022 (OV RELIGIOUS HEALER) Chief complaint: LEFT shoulder pain Tori Gray [...] to palpa (more content not included)... Normal [facility] CNPIliana 01-24-2023 CNPN Telephone (SPAGWO) ---- TORI GRAY ([id number]) 1980 F Date Time Provider Department 01/24/23 [...] by INTRAUTERINE route as directed. - Ipratropium What Cheer (ATROVENT) 0.03 % nasal spray Use 2 Sprays in the nose every 12 hours. - metroNIDAZOLE (METROGEL) 0.75 % Topical Gel Apply to affected area twice daily. - [place]-3 Fatty Acids (FISH OIL) 500 mg cap Take 1 capsule by mouth once daily. - blood sugar diagnostic (BLOOD GLUCOSE TEST) test strip Test blood sugar(s) 1 times daily. Dx: Type 2 DM - Controlled E11.9 Insulin: Yes - Lancets lancets Test blood sugar(s) 1 times daily. Dx: Type 2 DM - Controlled E11.9 Insulin: No - Nolfcwmj-Jc-Nsy-Fe- FA tab Take 1 tablet by mouth [...] 05/06/2009 01/23/2010 Routine general medical examination at [facility]*01/23/2010 12/06/2012 Class: Chronic Routine gynecological examination [Z01.419] 01/23/2010 02/22/2014 Class: Chronic Morbid Obesity [E66.01] 01/23/2010 Lumbar Disc Disorder [M51.9] 02/16/2010 (more content not included)... Normal [facility] HCG ( test) Ql (U)o n 01-02-2023 Specific gravity (U) [Rel density] 1.010 Normal 1.005-1.030 [facility] Comment on above: Order Comment: Speci men Type: URINE SPECIMENOrdering Facility: [facility] Address: [address] [place] [address] Performed By: #### 2 106-3 ####[facility] LABIA [id number] [place] [id number] [facility] HCG Preg Ur Qlon 01-02-2023 HCG ( test) Ql (U) Negative Normal Negative [facility] Comment on above: Order Comment: Speci men Type: URINE SPECIMENOrdering Facility: [facility] Address: [address] [place] [address] Result Comment: This test is intended to aid in the early detection of . Very dilute urine samples, as indicated by a low specific gravity, may not contain account development representative levels of hCG. This test detects [...] for . Performed By: #### 2 106-3 ####[facility] LABIA [id number] [place] [id number] [facility] HISTORY PHYSICALon 3 HISTORY PHYSICAL HNO ID: [id number] Author: Elle Sanchez MD Service: Pain Management [...] 1/2 hr before meal. Unknown Yes Ipratropium What Cheer (ATROVENT) 0.03 % nasal spray Use 2 Sprays in the nose every 12 hours. Unknown Yes [place]-3 Fatty Acids (FISH OIL) 500 mg cap Take 1 capsule by mouth once daily. Patient taking differently: Take 1 tablet by mouth once daily. 1200 mg 01/02/2023 Yes blood sugar diagnostic (BLOOD GLUCOSE TEST) test strip Test blood sugar(s) 1 times daily. Dx: Type 2 DM - Controlled E11.9 Insulin: Yes Yes Pysmdbwe-Ia-Nkz-Fe- FA tab Take 1 tablet by mouth [...] January 02, 2023 TIME: 11:00 AM Normal [facility] OPERATIVE NOon 01-02-2023 OPERATIVE NO HNO ID: [id number] Author: Elle Sanchez MD Service: Pain Management Author Type: Physician Type: Operative Report Filed: 01/02/2023 11:29 AM Note Text: OPERATIVE/PROCEDURE REPORT LOG ID: [id number] SURGERY/PROCEDURE DATE: 01/02/2023 INCISION/PROCEDURE START TIME: 11:18 AM INCISION CLOSE/PROCEDURE END TIME: 11:25 AM SURGEON(S)/PROCEDUR KAYST(S) AND DIVISION LEADER(S): Surgeon(s) and Role: * Elle Sanchez MD [...] January 02, 2023 TIME: 11:28 AM Normal [facility] CNPIliana 11-29-2022 CNPN Telephone (AGSPINE3) ---- TORI GRAY ([id number]) 1980 F Date Time Provider Department 11/29/22 ELLE SANCHEZ AGSPINE3 During your visit today, we recorded the following information about you: Darrion Carson 11/29/2022 2:40 PM Signed Patient has left a voicemail stating that she had fallen over the weekend and has a concussion. She is wondering if she should reschedule her appointment for 12/05/22 with you in [place] as she is not sure if this [...] to reschedule out to January 02 at [place], message has been sent to [place]. Darrion Shah Allergies As of Date: 11/29/2022 Noted Allergy Reaction LIDOCAINE 12/24/2019 4 - Hives STEROIDS (BETAMETHASONE DIPROPION* 2 4 - Hives Date Reviewed: 11/27/2022 Reviewed by: Dennise Robles - Fully Assessed Reason for Visit: Patient Question [0987] Cmt: [place] appointment on 12/05/22 Prescriptions as of 11/30/2022 [...] by INTRAUTERINE route as directed. - Ipratropium What Cheer (ATROVENT) 0.03 % nasal spray Use 2 Sprays in the nose every 12 hours. - metroNIDAZOLE (METROGEL) 0.75 % Topical Gel Apply to affected area twice daily. - [place]-3 Fatty Acids (FISH OIL) 500 mg cap Take 1 capsule by mouth once daily. - blood sugar diagnostic (BLOOD GLUCOSE TEST) test strip Test blood sugar(s) 1 times daily. Dx: Type 2 DM - Controlled E11.9 Insulin: Yes - Lancets lancets Test blood sugar(s) 1 times daily. Dx: Type 2 DM - Controlled E11.9 Insulin: No - Ejegwpxu-Ad-Khh-Fe- FA tab Take 1 tablet by mouth [...] 02/16/2010 Routine general medical examination at a [facility]*12/06/2012 02/22/2014 Anxiety [F41.9] 06/07/2014 Type 2 diabetes [...] 04/17/2022 09/04/2022 (more content not included)... Normal [facility] Glucose Glucometer (BldC) [M ass/Vol]Ordered By: Dr. Shabazz on 11-24-2022 Glucose [Mass/Vol] 89 mg/dL 74-106 [facility] Comment on above: MANAGEMENT OF PATIEN T CARE PER NURSING PROTOCOL CNOVon 11-08-2022 CNOV Office Visit (SPAGWO) ---- TORI GRAY ([id number]) 1980 F Date Time Provider Department 11/08/22 [...] suicidal ideas. The patient is not nervous/anxious. Adelnia Mason, THOM.EBD TEACHER 11/08/2022 1:55 PM Signed [facility] Today's Date: 11/08/2022 Last Visit: 07/19/22 [...] activity was identified. 11/08/2022 by Adelina Mason APRN.EBD TEACHER Allergies: ALLERGIES Allergen Reactions Lidocaine Hives Steroids [...] No vis (more content not included)... Normal [facility] CNPIliana 11-08-2022 CNPN Telephone (SPAGWO) ---- TORI GRAY ([id number]) 1980 F Date Time Provider Department 11/08/22 [...] No 9. Does this procedure require a inventory associate and driver? Yes If yes, has patient been notified that a inventory associate and driver is needed and must be present [...] Date Reviewed: 11/08/2022 Reviewed by: Adelina Mason APRN.EBD TEACHER - Fully Assessed Reason for Visit: Injections [...] by INTRAUTERINE route as directed. - Ipratropium What Cheer (ATROVENT) 0.03 % nasal spray Use 2 Sprays in the nose every 12 hours. - metroNIDAZOLE (METROGEL) 0.75 % Topical Gel Apply to affected area twice daily. - [place]-3 Fatty Acids (FISH OIL) 500 mg cap Take 1 capsule by mouth once daily. - blood sugar diagnostic (BLOOD GLUCOSE TEST) test strip Test blood sugar(s) 1 times daily. Dx: Type 2 DM - Controlled E11.9 Insulin: Yes - Lancets lancets Test blood sugar(s) 1 times daily. Dx: Type 2 DM - Controlled E11.9 Insulin: No - Wamasjca-Uy-Zhi-Fe- FA tab Take 1 tablet by mouth [...] 01/23/2010 Routine general medical examination at a [facility]*01/23/2010 12/06/2012 Class: Chronic Routine gynecological examination [Z01.419] 01/23/2010 02/22/2014 Class: Chronic Morbid Obesity [E66.01] 01/23/2010 Lumbar (more content not included)... Normal [facility] TOR[facility] ([id number]) 1980 F Date Time Provider Department 10/02/22 [...] spoke with and scheduled with Adelina in [place] beginning of the year. Adriana Licona Allergies As of Date: 10/02/2022 Noted Allergy Reaction LIDOCAINE 12/24/2019 4 - Hives STEROIDS (BETAMETHASONE DIPROPION* 2 4 - Hives Date Reviewed: 09/04/2022 Reviewed by: Dennise Robles - Fully Assessed Reason for Visit: Appointment [[id number]] Patient Question [1507] Prescriptions as of 10/02/2022 - tiZANidine (ZANAFLEX) [...] bed with current PAP mask. - Ipratropium What Cheer (ATROVENT) 0.03 % nasal spray Use 2 Sprays in the nose every 12 hours. - metroNIDAZOLE (METROGEL) 0.75 % Topical Gel Apply to affected area twice daily. - [place]-3 Fatty Acids (FISH OIL) 500 mg cap Take 1 capsule by mouth once daily. - blood sugar diagnostic (BLOOD GLUCOSE TEST) test strip Test blood sugar(s) 1 times daily. Dx: Type 2 DM - Controlled E11.9 Insulin: Yes - Lancets lancets Test blood sugar(s) 1 times daily. Dx: Type 2 DM - Controlled E11.9 Insulin: No - Hfitvfcy-Tz-Huq-Fe- FA tab Take 1 tablet by mouth [...] 05/06/2009 01/23/2010 Routine general medical examination at [facility]*01/23/2010 12/06/2012 Class: Chronic Routine gynecological examination [Z01.419] 01/23/2010 02/22/2014 Class: Chronic Morbid Obesity [E66.01] 01/23/2010 Lumbar Disc Disorder [M51.9] 02/16/2010 Routine general medical examination at [facility]*12/06/2012 02/22/2014 Anxiety [F41.9] 06/07/2014 Type [...] [R20.0] 12/ (more content not included)... Normal [facility] Absolute lymphocyte countOrd ered By: Dr. Grimes on 09-06-2022 Lymphocytes Auto (Unsp spec) [#/Vol] 2.67 10*3/uL 0.83-4.51 [facility] Basophil percentageOrdered B y: Dr. Grimes on 09-06-2022 Basophils/100 WBC (Bld) 0.5 % 0-1 [facility] Chloride [Moles/Vol] 110 mmol/L 98-107 [facility] Eosinophils/100 WBC (Bld) 2.1 % 0-5 [facility] Glucose [Mass/Vol] 120 mg/dL 74-106 [facility] Comment on above: Fasting Glucose resu lt from 100 to 125 mg/dL suggests IMPAIRED HOMEOSTASIS per A.D.A. criteria. Neutrophils (Bld) [#/Vol] 6.2 10*3/uL 2.0-7.7 [facility] Neutrophils/100 WBC (Bld) 64.2 % 47-70 [facility] Potassium [Moles/Vol] 3.6 mmol/L 3.5-5.1 [facility] Sodium [Moles/Vol] 139 mmol/L 136-145 [facility] WBC (Bld) [#/Vol] 9.6 10*3/uL 4.4-11.0 [facility] Blood erythrocytes count (nu mber/volume)Ordered By: Dr. Grimes on 09-06-2022 RBC (Bld) [#/Vol] 4.29 10*6/uL 4.2-5.4 [facility] Blood hemoglobin measurement (mass/volume)Ordered By: Dr. Grimes on 09-06-2022 Hemoglobin (Bld) [Mass/Vol] 13.6 g/dL 12.0-15.0 [facility] Blood lymphocytes/100 leukoc ytesOrdered By: Dr. Grimes on 09-06-2022 Lymphocytes/100 WBC (Bld) 27.8 % 19-41 [facility] Blood monocytes/100 leukocyt esOrdered By: Dr. Grimes on 09-06-2022 Monocytes/100 WBC (Bld) 4.3 % 0-10 [facility] Blood platelet mean volumeOr dered By: Dr. Grimes on 09-06-2022 Platelet mean volume (Bld) [Entitic vol] 9.6 fL 6.2-12.0 [facility] Determination of erythrocyte mean corpuscular volume (MCV)Ordered By: Dr. Grimes on 09-06-2022 MCV (RBC) [Entitic vol] 90.2 fL 81-99 [facility] Hematocrit Auto (Bld) [Volum e fraction]Ordered By: Dr. Grimes on 09-06-2022 Hematocrit (Bld) [Volume fraction] 38.7 % 37-47 [facility] Laboratory - Chemistry and C hemistry - challengeOrdered By: Dr. Grimes on 09-06-2022 CO2 [Moles/Vol] 23.0 mmol/L 21.0-32.0 [facility] Urea nitrogen/Creatinine [Mass ratio] 15.9 mg/mg 10-20 [facility] Laboratory - Hematology and Cell countsOrdered By: Dr. Grimes on 09-06-2022 Erythrocyte distribution width (RBC) [Entitic vol] 42.5 fL 35.1-43.9 [facility] Erythrocyte distribution width (RBC) [Ratio] 12.9 % 11.6-14.6 [facility] Immature granulocytes/100 WBC (Bld) 1.100 % 0.0-0.9 [facility] Comment on above: IG% - Immature Granu locytes (promyelocytes, myelocytes and metamyelocytes) > 1% indicates that a LEFT SHIFT is Present. MCH (RBC) [Entitic mass] 31.7 pg 27.0-32.0 [facility] Nucleated RBC/100 WBC (Bld) [Ratio] 0 % 0-5 [facility] MCHC Auto (RBC) [Mass/Vol]Or dered By: Dr. Grimes on 09-06-2022 MCHC (RBC) [Mass/Vol] 35.1 g/dL 32-36 [facility] No Panel InformationOrdered By: Dr. Grimes on 09-06-2022 Estimated GFR (MDRD) Amer 100 mL/min >60 [facility] Comment on above: GFR Calc Estimated GFR (MDRD) Non-Af Amer 82 mL/min >60 [facility] Comment on above: Non- GFR Calc Thyroid Stimulating Hormone (TSH) 1.56 uIU/mL 0.358-3.74 [facility] Platelets bldOrdered By: Dr. Grimes on 09-06-2022 Platelets (Bld) [#/Vol] 190 10*3/uL 150-450 [facility] Serum or plasma calcium sharron urement (mass/volume)Ordered By: Dr. Grimes on 09-06-2022 Calcium [Mass/Vol] 8.7 mg/dL 8.5-10.1 [facility] Serum or plasma creatinine m easurement (mass/volume)Ordered By: Dr. Grimes on 09-06-2022 Creatinine [Mass/Vol] 0.82 mg/dL 0.55-1.02 [facility] Comment on above: The validity of the calculated GFR & GFRAA in patients over 70 years has not been determined. Clinical correlation is essential. Serum or plasma urea nitroge n measurement (mass/volume)Ordered By: Dr. Grimes on 09-06-2022 Urea nitrogen [Mass/Vol] 13 mg/dL 7-18 [facility] Thin prep Papanicolaou smear with manual screeningOrdered By: Dr. Grimes on 09-06-2022 Thin prep Papanicolaou smear with manual screening 6 5-15 [facility] Laboratory - Chemistry and C hemistry - challengeOrdered By: Dr. Guerrero on 08-29-2022 Magnesium [Mass/Vol] 1.7 mg/dL 1.6-2.6 [facility] Basophil percentageOrdered B y: Dr. Grimes on 08-08-2022 Cholesterol [Mass/Vol] 168 mg/dL <200 [facility] Comment on above: <200 mg/dL Desirable 200-240 mg/dL Borderline >240 mg/dL High Risk Triglyceride [Mass/Vol] 176 mg/dL <199 [facility] Comment on above: The drugs N-Acetylcy steine and Metamizole may falsely depress this assay.Serum Triglycerides Reference Interval Normal <150 mg/dL Borderline high 150 - 199 mg/dL High 200 - 499 mg/dL Very High > or = 500 mg/dL Hany 08-08-2022 GABRIELAN Telephone (AGSPHWG) ---- TORI GRAY ([id number]) 1980 F Date Time Provider Department 08/08/22 ADELINA MASON During your visit today, we recorded the following information about you: Adelina Mason APRN.EBD TEACHER 08/08/2022 12:55 PM Signed Please advise patient insurance will not approve the RFA of her shoulder. Another option would be to repeat the LEFT scapular NB, but with steroids for a therapeutic effect. If she would like to proceed with this option please let me know and will place the order. Thank you, Adelina Mason APRN.EBD TEACHER Pankaj Murillo 08/10/2022 2:13 PM Signed Left patient a detailed message informing her of this information. Also left the number for her to call back. Allergies As of Date: 08/08/2022 Noted Allergy Reaction LIDOCAINE 12/24/2019 4 - Hives STEROIDS (BETAMETHASONE DIPROPION* 2 4 - Hives Date Reviewed: 07/19/2022 Reviewed by: Karen Bansal APRN.EBD TEACHER - Fully Assessed Reason for Visit: Patient [...] bed with current PAP mask. - Ipratropium What Cheer (ATROVENT) 0.03 % nasal spray Use 2 Sprays in the nose every 12 hours. - metroNIDAZOLE (METROGEL) 0.75 % Topical Gel Apply to affected area twice daily. - [place]-3 Fatty Acids (FISH OIL) 500 mg cap Take 1 capsule by mouth once daily. - blood sugar diagnostic (BLOOD GLUCOSE TEST) test strip Test blood sugar(s) 1 times daily. Dx: Type 2 DM - Controlled E11.9 Insulin: Yes - Lancets lancets Test blood sugar(s) 1 times daily. Dx: Type 2 DM - Controlled E11.9 Insulin: No - Frwraysa-Dg-Mzy-Fe- FA tab Take 1 tablet by mouth [...] 05/06/2009 01/23/2010 Routine general medical examination at [facility]*01/23/2010 12/06/2012 Class: Chronic Routine gynecological examination [Z01.419] 01/23/2010 02/22/2014 Class: Chronic Morbid Obesity [E66.01] 01/23/2010 Lumbar Disc Disorder [M51.9] 02/16/2010 Routine general medical examination at [facility]*12/06/2012 02/22/2014 Anxiety [F41.9] 06/07/2014 Type 2 diabetes mellitus with microalbuminuria,*0 07/04/2018 Fatty liver [K76.0] 07/21/2018 LETITIA (obstructive sleep apnea) [G47.33] 07/21/2018 Microalbuminuria [R80.9] 09/30/2018 Obesity, Class III, BMI >= 40 [E66.01] 11/26/2019 Prolonged Q-T interval on ECG [R94.31] 03/31/2020 Encounter Status:Closed by ADELINA MASON on 08/08/22 [facility] No Panel InformationOrdered By: Dr. Grimes on 08-08-2022 Thyroid Stimulating Hormone (TSH) 3.38 uIU/mL 0.358-3.74 [facility] Serum or plasma cholesterol in HDL measurement (mass/volume)Ordered By: Dr. Grimes on 08-08-2022 Cholesterol in HDL [Mass/Vol] 37 mg/dL >40 [facility] Comment on above: The drugs N-Acetylcy steine and Metamizole may falsely depress this assay. Reference Range HDL <40 mg/dL Low HDL Cholesterol HDL >or= 60 mg/dL High HDL Cholesterol Serum or plasma cholesterol in VLDL measurement (mass/volume)Ordered By: Dr. Grimes on 08-08-2022 Cholesterol in VLDL [Mass/Vol] 35 mg/dL 5-40 [facility] Serum or plasma low density lipoprotein (LDL) cholesterol measurement (mass/volume)Ordered By: Dr. Grimes on 08-08-2022 Cholesterol in LDL [Mass/Vol] 96 mg/dL 0-130 [facility] Whole blood hemoglobin A1c/t otal hemoglobin ratio (mass fraction)Ordered By: Dr. Grimes on 08-08-2022 HbA1c (Bld) [Mass fraction] 5.3 % 3.8-5.6 [facility] Comment on above: Normal < 5.7 % Predi abetic 5.7 - 6.4 % Diabetic >or= 6.5 % Please note range changes. CNCOon 07-19-2022 CNCO Letter Text [facility] CNOVon 07-19-2022 CNOV Office Visit (SPAGWO) ---- TORI GRAY ([id number]) 1980 F Date Time Provider Department 07/19/22 [...] The patient is not nervous/anxious. Adelina Mason APRN.EBD TEACHER 07/19/2022 10:17 AM Signed [facility] Today's Date: 07/19/2022 Last Visit: 05/24/22 [...] (A) 74 - 99 mg/dL Final Comment: Location:[facility], [address] [place] [address], [facility] The Accu-Chek Inform II glucose [...] IMPROVEMENT 05/09/22 LEFT suprascapular NB 75% Compliance: [facility] website checked and validated. All prescriptions have been APPROPRIATELY filled. No suspicious activity was identified. 07/19/2022 by Adelina Mason APRN.[facility] Last Drug screen: Not Applicable Risk Assessment: VAHE-7: (more content not included)... Normal [facility] CNPNon 07-19-2022 CNPN Telephone (SPAGWO) ---- TORI GRAY ([id number]) 1980 F Date Time Provider Department 07/19/22 [...] year? Yes If yes, [facility] Release needs to [...] Date Reviewed: 07/19/2022 Reviewed by: Adelina Mason APRN.EBD TEACHER - Fully Assessed Reason for Visit: Patient [...] bed with current PAP mask. - Ipratropium What Cheer (ATROVENT) 0.03 % nasal spray Use 2 Sprays in the nose every 12 hours. - metroNIDAZOLE (METROGEL) 0.75 % Topical Gel Apply to affected area twice daily. - [place]-3 Fatty Acids (FISH OIL) 500 mg cap Take 1 capsule by mouth once daily. - blood sugar diagnostic (BLOOD GLUCOSE TEST) test strip Test blood sugar(s) 1 times daily. Dx: Type 2 DM - Controlled E11.9 Insulin: Yes - Lancets lancets Test blood sugar(s) 1 times daily. Dx: Type 2 DM - Controlled E11.9 Insulin: No - Bzdbephh-Sb-Qgp-Fe- FA tab Take 1 tablet by mouth [...] 05/06/2009 01/23/2010 Routine general medical examination at [facility]*01/23/2010 12/06/2012 Class: Chronic Routine gynecological examination [Z01.419] 01/23/2010 02/22/2014 Class: Chronic Morbid Obesity [E66.01] 01/23/2010 Lumbar Disc Disorder [M51.9] 02/16/2010 Routine general medical examination at [facility]*12/06/2012 02/22/2014 Anxiety [F41.9] 06/07/2014 Type 2 diabetes mellitus with microalbuminuria,*0 07/04/2018 Fatty liver [K76.0] 07/21/2018 LETITIA (obstructive sleep apnea) [G47 (more content not included)... Normal [facility] Absolute lymphocyte counton 06-05-2022 Lymphocytes Auto (Unsp spec) [#/Vol] 2.26 10*3/uL 0.83-4.51 [facility] Work Phone: Absolute reticulocyte counto n 06-05-2022 Reticulocytes (Bld) [#/Vol] 0.00 10*3/uL 0-5 [facility] Work Phone: Basophil percentageon 2021 Basophil percentage 3.4 mg/dL 2.5-4.9 [facility] Work Phone: Bilirubin [Mass/Vol] 0.60 mg/dL 0.20-1.00 [facility] Work Phone: Comment on above: For patients on eltr ombopag therapy, use of Dimension [place] TBIL is not recommended. Chloride [Moles/Vol] 108 mmol/L 98-107 [facility] Work Phone: Cholesterol [Mass/Vol] 180 mg/dL <200 [facility] Work Phone: Comment on above: <200 mg/dL Desirable 200-240 mg/dL Borderline >240 mg/dL High Risk Glucose [Mass/Vol] 100 mg/dL 74-106 [facility] Work Phone: Comment on above: Fasting Glucose resu lt from 100 to 125 mg/dL suggests IMPAIRED HOMEOSTASIS per A.D.A. criteria. Neutrophils (Bld) [#/Vol] 5.5 10*3/uL 2.0-7.7 [facility] Work Phone: Potassium [Moles/Vol] 3.6 mmol/L 3.5-5.1 [facility] Work Phone: Protein [Mass/Vol] 8.2 g/dL 6.4-8.2 [facility] Work Phone: Sodium [Moles/Vol] 137 mmol/L 136-145 [facility] Work Phone: Triglyceride [Mass/Vol] 418 mg/dL <199 [facility] Work Phone: Comment on above: The drugs N-Acetylcy steine and Metamizole may falsely depress this assay. TRIGLYCERIDE IS GREATER THAN 400 mg/dL. LDL RESULT IS INVALID AND WILL NOT BE REPORTED.Serum Triglycerides Reference Interval Normal <150 mg/dL Borderline high 150 - 199 mg/dL High 200 - 499 mg/dL Very High > or = 500 mg/dL WBC (Bld) [#/Vol] 8.6 10*3/uL 4.4-11.0 [facility] Work Phone: Bilirubin Test strip Ql (U)o n 06-05-2022 Bilirubin Ql (U) Negative Negative [facility] Work Phone: Blood erythrocytes count (nu mber/volume)on 06-05-2022 RBC (Bld) [#/Vol] 4.49 10*6/uL 4.2-5.4 [facility] Work Phone: Blood hemoglobin measurement (mass/volume)on 06-05-2022 Hemoglobin (Bld) [Mass/Vol] 14.0 g/dL 12.0-15.0 [facility] Work Phone: Blood platelet mean volumeon 06-05-2022 Platelet mean volume (Bld) [Entitic vol] 9.2 fL 6.2-12.0 [facility] Work Phone: Determination of erythrocyte mean corpuscular volume (MCV)on 06-05-2022 MCV (RBC) [Entitic vol] 92.7 fL 81-99 [facility] Work Phone: Direct bilirubinon Bilirubin.direct [Mass/Vol] 0.11 mg/dL 0.00-0.30 [facility] Work Phone: Hematocrit Auto (Bld) [Volum e fraction]on 06-05-2022 Hematocrit (Bld) [Volume fraction] 41.6 % 37-47 [facility] Work Phone: Ketones Test strip Ql (U)on 06-05-2022 Ketones Ql (U) Negative Negative [facility] Work Phone: Laboratory - Chemistry and C hemistry - challengeon 06-05-2022 ALP [Catalytic activity/Vol] 73 U/L 45-117 [facility] Work Phone: ALT [Catalytic activity/Vol] 24 U/L 13-56 [facility] Work Phone: Cholesterol.total/Choles terol in HDL [Mass ratio] 5.50 {ratio} [facility] Work Phone: CO2 [Moles/Vol] 25.0 mmol/L 21.0-32.0 [facility] Work Phone: Globulin (S) [Mass/Vol] 4.1 g/dL 2.2-4.2 [facility] Work Phone: Urea nitrogen/Creatinine [Mass ratio] 16.6 mg/mg 10-20 [facility] Work Phone: Laboratory - Hematology and Cell countson 06-05-2022 Erythrocyte distribution width (RBC) [Entitic vol] 44.2 fL 35.1-43.9 [facility] Work Phone: Erythrocyte distribution width (RBC) [Ratio] 13.2 % 11.6-14.6 [facility] Work Phone: MCH (RBC) [Entitic mass] 31.2 pg 27.0-32.0 [facility] Work Phone: Nucleated RBC/100 WBC (Bld) [Ratio] 0 % 0-5 [facility] Work Phone: MCHC Auto (RBC) [Mass/Vol]on 06-05-2022 MCHC (RBC) [Mass/Vol] 33.7 g/dL 32-36 [facility] Work Phone: Nitrite Test strip Ql (U)on 06-05-2022 Nitrite Ql (U) Negative Negative [facility] Work Phone: No Panel Informationon 06-05 Estimated GFR (MDRD) Amer 115 mL/min >60 [facility] Work Phone: Comment on above: GFR Calc Estimated GFR (MDRD) Non-Af Amer 95 mL/min >60 [facility] Work Phone: Comment on above: Non- GFR Calc Platelets bldon 06-05-2022 Platelets (Bld) [#/Vol] 200 10*3/uL 150-450 [facility] Work Phone: Protein Test strip Ql (U)on 06-05-2022 Protein Ql (U) 15 mg/dl Negative [facility] Work Phone: Segmented neutrophils/100 WB C Auto (Bld)on 06-05-2022 Segmented neutrophils/100 WBC (Bld) 64.3 % 47-70 [facility] Work Phone: Serum or plasma albumin sharron urement (mass/volume)on 06-05-2022 Albumin [Mass/Vol] 4.1 g/dL 3.2-5.0 [facility] Work Phone: Serum or plasma albumin/glob ulin mass ratioon 06-05-2022 Albumin/Globulin [Mass ratio] 1.0 {ratio} 0.9-2.4 [facility] Work Phone: Serum or plasma calcium sharron urement (mass/volume)on 06-05-2022 Calcium [Mass/Vol] 8.7 mg/dL 8.5-10.1 [facility] Work Phone: Serum or plasma cholesterol in HDL measurement (mass/volume)on 06-05-2022 Cholesterol in HDL [Mass/Vol] 33 mg/dL >40 [facility] Work Phone: Comment on above: The drugs N-Acetylcy steine and Metamizole may falsely depress this assay. Reference Range HDL <40 mg/dL Low HDL Cholesterol HDL >or= 60 mg/dL High HDL Cholesterol Serum or plasma cholesterol in VLDL measurement (mass/volume)on 06-05-2022 Cholesterol in VLDL [Mass/Vol] TNP [facility] Work Phone: Comment on above: Test not performed Serum or plasma creatinine m easurement (mass/volume)on 06-05-2022 Creatinine [Mass/Vol] 0.72 mg/dL 0.55-1.02 [facility] Work Phone: Comment on above: The validity of the calculated GFR & GFRAA in patients over 70 years has not been determined. Clinical correlation is essential. Serum or plasma low density lipoprotein (LDL) cholesterol measurement (mass/volume)on 06-05-2022 Cholesterol in LDL [Mass/Vol] TNP [facility] Work Phone: Comment on above: Test not performed Serum or plasma urea nitroge n measurement (mass/volume)on 06-05-2022 Urea nitrogen [Mass/Vol] 12 mg/dL 7-18 [facility] Work Phone: Serum or plasma uric acid me asurement (mass/volume)on 06-05-2022 Urate [Mass/Vol] 5.6 mg/dL 2.6-6.0 [facility] Work Phone: Comment on above: The drugs N-Acetylcy steine and Metamizole may falsely depress this assay. Thin prep Papanicolaou smear with manual screeningon 06-05-2022 Thin prep Papanicolaou smear with manual screening 14 U/L 15-37 [facility] Work Phone: Thin prep Papanicolaou smear with manual screening 4 5-15 [facility] Work Phone: Thin prep Papanicolaou smear with manual screening 152 U/L 84-246 [facility] Work Phone: Urine blood detectionon RBC Ql (U) Negative Negative [facility] Work Phone: Urine clarityon 06-05-2022 Clarity (U) Sl. Cloudy Clear [facility] Work Phone: Urine color determinationon 06-05-2022 Color (U) Yellow Yellow [facility] Work Phone: Urine glucose detectionon Glucose Ql (U) Normal mg/dl Normal [facility] Work Phone: Urine leukocyte esterase det ection by dipstickon 06-05-2022 Leukocyte esterase Test strip Ql (U) 500 /ul Negative [facility] Work Phone: Urine pHon 06-05-2022 pH (U) 5.0 [pH] 5.0 - 8.0 [facility] Work Phone: Urine specific gravity measu rementon 06-05-2022 Specific gravity (U) [Rel density] 1.020 1.002-1.030 [facility] Work Phone: Urobilinogen Auto test strip Ql (U)on 06-05-2022 Urobilinogen Ql (U) Normal mg/dl Normal [facility] Work Phone: CNOVon 05-24-2022 CNOV Office Visit (SPAGWO) ---- TORI GRAY ([id number]) 1980 F Date Time Provider Department 05/24/22 [...] The patient is not nervous/anxious. 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 Normal [facility] CNPIliana 05-11-2022 CNPN Telephone (AGSPHWG) ---- TORI GRAY ([id number]) 1980 F Date Time Provider Department 05/11/22 [...] bed with current PAP mask. - Ipratropium What Cheer (ATROVENT) 0.03 % nasal spray Use 2 Sprays in the nose every 12 hours. - metroNIDAZOLE (METROGEL) 0.75 % Topical Gel Apply to affected area twice daily. - [place]-3 Fatty Acids (FISH OIL) 500 mg cap Take 1 capsule by mouth once daily. - blood sugar diagnostic (BLOOD GLUCOSE TEST) test strip Test blood sugar(s) 1 times daily. Dx: Type 2 DM - Controlled E11.9 Insulin: Yes - Lancets lancets Test blood sugar(s) 1 times daily. Dx: Type 2 DM - Controlled E11.9 Insulin: No - Sbwpzori-Az-Esg-Fe- FA ( FORMULA) ORAL Tab Take 1 [...] 05/06/2009 01/23/2010 Routine general medical examination at [facility]*01/23/2010 12/06/2012 Class: Chronic Routine gynecological examination [Z01.419] 01/23/2010 02/22/2014 Class: Chronic Morbid Obesity [E66.01] 01/23/2010 Lumbar Disc Disorder [M51.9] 02/16/2010 Routine general medical examination at [facility]*12/06/2012 02/22/2014 Anxiety [F41.9] 06/07/2014 Type 2 diabetes mellitus with microalbuminuria,*0 07/04/2018 Fatty liver [K76.0] 07/21/2018 LETITIA (obstructive sleep apnea) [G47.33] 07/21/2018 Microalbuminuria [R80.9] 09/30/2018 Obesity, Class III, BMI >= 40 [E66.01] 11/26/2019 Prolonged Q-T interval on ECG [R94.31] 03/31/2020 Encounter Status:Closed by LIVIA LUNA on 05/11/22 [facility] GLUCOSE, BLOOD (POC)on 05-10 Glucose [Mass/Vol] 104 mg/dL Abnormal 74 - 99 mg/dL [facility] CNCOon 03-29-2022 CNCO Letter Text Normal [facility] CNOVon 03-29-2022 CNOV Office Visit (SPAGWO) ---- TORI GRAY ([id number]) 1980 F Date Time Provider Department 03/29/22 11:00 AM ELLE SANCHEZ During your visit today, we recorded the following information about you: Pulse Respiration Normal [facility] CNPNon 03-29-2022 CNPN Telephone (SPAGWO) ---- TORI GRAY ([id number]) 1980 F Date Time Provider Department 03/29/22 [...] bed with current PAP mask. - Ipratropium What Cheer (ATROVENT) 0.03 % nasal spray Use 2 Sprays in the nose every 12 hours. - metroNIDAZOLE (METROGEL) 0.75 % Topical Gel Apply to affected area twice daily. - [place]-3 Fatty Acids (FISH OIL) 500 mg cap Take 1 capsule by mouth once daily. - blood sugar diagnostic (BLOOD GLUCOSE TEST) test strip Test blood sugar(s) 1 times daily. Dx: Type 2 DM - Controlled E11.9 Insulin: Yes - Lancets lancets Test blood sugar(s) 1 times daily. Dx: Type 2 DM - Controlled E11.9 Insulin: No - Gntmirxs-Pt-Acq-Fe- FA ( FORMULA) ORAL Tab Take 1 [...] 01/23/2010 Routine general medical examination at a [facility]*01/23/2010 12/06/2012 Class: Chronic Routine gynecological examination [Z01.419] 01/23/2010 02/22/2014 Class: Chronic Morbid Obesity [E66.01] 01/23/2010 Lumbar Disc Disorder [M51.9] 02/16/2010 Routine general medical examination at a [facility]*12/06/2012 02/22/2014 Anxiety [F41.9] 06/07/2014 Type 2 diabetes mellitus with microalbuminuria,*0 07/04/2018 Fatty liver [K76.0] 07/21/2018 LETITIA (obstructive sleep apnea) [G47.33] 07/21/2018 Microalbuminuria [R80.9] 09/30/2018 Obesity, Class III, BMI >= 40 [E66.01] 11/26/2019 Prolo (more content not included)... Normal [facility] Basophil percentageon 2021 Cholesterol [Mass/Vol] 178 mg/dL <200 [facility] Comment on above: <200 mg/dL Desirable 200-240 mg/dL Borderline >240 mg/dL High Risk Triglyceride [Mass/Vol] 183 mg/dL [facility] Comment on above: The drugs N-Acetylcy steine and Metamizole may falsely depress this assay.Serum Triglycerides Reference Interval Normal <150 mg/dL Borderline high 150 - 199 mg/dL High 200 - 499 mg/dL Very High > or = 500 mg/dL Bilirubin [Mass/Vol] 0.30 mg/dL 0.20-1.00 [facility] Work Phone: Comment on above: For patients on eltr ombopag therapy, use of Dimension [place] TBIL is not recommended. Chloride [Moles/Vol] 109 mmol/L 98-107 [facility] Work Phone: Glucose [Mass/Vol] 126 mg/dL 74-106 [facility] Work Phone: Comment on above: Fasting Glucose resu lt greater than or equal to 126 mg/dL suggests DIABETES MELLITUS per A.D.A. criteria. Potassium [Moles/Vol] 4.1 mmol/L 3.5-5.1 [facility] Work Phone: Protein [Mass/Vol] 8.4 g/dL 6.4-8.2 [facility] Work Phone: Sodium [Moles/Vol] 136 mmol/L 136-145 [facility] Work Phone: WBC (Bld) [#/Vol] 9.6 10*3/uL 4.4-11.0 [facility] Work Phone: Blood erythrocytes count (nu mber/volume)on 02-07-2022 RBC (Bld) [#/Vol] 4.63 10*6/uL 4.2-5.[address] [facility] Work Phone: Blood hemoglobin measurement (mass/volume)on 02-07-2022 Hemoglobin (Bld) [Mass/Vol] 14.2 g/dL 12.0-15.0 [facility] Work Phone: Blood platelet mean volumeon 02-07-2022 Platelet mean volume (Bld) [Entitic vol] 9.5 fL 6.2-12.0 [facility] Work Phone: Determination of erythrocyte mean corpuscular volume (MCV)on 02-07-2022 MCV (RBC) [Entitic vol] 91.6 fL 81-99 [facility] Work Phone: Hematocrit Auto (Bld) [Volum e fraction]on 02-07-2022 Hematocrit (Bld) [Volume fraction] 42.4 % 37-47 [facility] Work Phone: LIPID PANEL (OUTSIDE)on VLDL Cholesterol 37 [facility] Laboratory - Chemistry and C hemistry - challengeon 02-07-2022 ALP [Catalytic activity/Vol] 87 U/L 45-117 [facility] Work Phone: ALT [Catalytic activity/Vol] 29 U/L 13-56 [facility] Work Phone: CO2 [Moles/Vol] 23.0 mmol/L 21.0-32.0 [facility] Work Phone: Globulin (S) [Mass/Vol] 4.3 g/dL 2.2-4.2 [facility] Work Phone: Magnesium [Mass/Vol] 1.7 mg/dL 1.6-2.6 [facility] Work Phone: Urea nitrogen/Creatinine [Mass ratio] 15.1 mg/mg 10-20 [facility] Work Phone: Laboratory - Hematology and Cell countson 02-07-2022 Erythrocyte distribution width (RBC) [Entitic vol] 43.8 fL 35.1-43.9 [facility] Work Phone: Erythrocyte distribution width (RBC) [Ratio] 13.2 % 11.6-14.6 [facility] Work Phone: MCH (RBC) [Entitic mass] 30.7 pg 27.0-32.0 [facility] Work Phone: MCHC Auto (RBC) [Mass/Vol]on 02-07-2022 MCHC (RBC) [Mass/Vol] 33.5 g/dL 32-36 [facility] Work Phone: MICROALBUMIN/CREATININE UR W RATIO (EXTERNAL)on 02-07-2022 Albumin/Creat Ratio 153.4 [facility] Creatinine Urine 189 [facility] Microalbumin, Random urine 290 [facility] No Panel Informationon 02-07 Urine Microalbumin/Creatinine Ratio 153.4 mg/g CRE <30 [facility] Work Phone: Estimated GFR (MDRD) Amer 114 mL/min >60 [facility] Work Phone: Comment on above: GFR Calc Estimated GFR (MDRD) Non-Af Amer 94 mL/min >60 [facility] Work Phone: Comment on above: Non- GFR Calc Thyroid Stimulating Hormone (TSH) 2.76 uIU/mL 0.358-3.74 [facility] Work Phone: Platelets bldon 02-07-2022 Platelets (Bld) [#/Vol] 223 10*3/uL 150-450 [facility] Work Phone: Serum or plasma albumin sharron urement (mass/volume)on 02-07-2022 Albumin [Mass/Vol] 4.1 g/dL 3.2-5.0 [facility] Work Phone: Serum or plasma albumin/glob ulin mass ratioon 02-07-2022 Albumin/Globulin [Mass ratio] 1.0 {ratio} 0.9-2.4 [facility] Work Phone: Serum or plasma calcium sharron urement (mass/volume)on 02-07-2022 Calcium [Mass/Vol] 8.8 mg/dL 8.5-10.1 [facility] Work Phone: Serum or plasma cholesterol in HDL measurement (mass/volume)on 02-07-2022 Cholesterol in HDL [Mass/Vol] 37 mg/dL [facility] Comment on above: The drugs N-Acetylcy steine and Metamizole may falsely depress this assay. Reference Range HDL <40 mg/dL Low HDL Cholesterol HDL >or= 60 mg/dL High HDL Cholesterol Serum or plasma cholesterol in VLDL measurement (mass/volume)on 02-07-2022 Cholesterol in VLDL [Mass/Vol] 37 mg/dL 5-40 [facility] Work Phone: Serum or plasma creatinine m easurement (mass/volume)on 02-07-2022 Creatinine [Mass/Vol] 0.73 mg/dL 0.55-1.02 [facility] Work Phone: Comment on above: The validity of the calculated GFR & GFRAA in patients over 70 years has not been determined. Clinical correlation is essential. Serum or plasma low density lipoprotein (LDL) cholesterol measurement (mass/volume)on 02-07-2022 Cholesterol in LDL [Mass/Vol] 104 mg/dL 0-130 [facility] Serum or plasma urea nitroge n measurement (mass/volume)on 02-07-2022 Urea nitrogen [Mass/Vol] 11 mg/dL 7-18 [facility] Work Phone: TSH (EXTERNAL)on 02-07-2022 TSH 2.76 IU/ml 0.2 - 5.6 IU/ml [facility] Thin prep Papanicolaou smear with manual screeningon 02-07-2022 Thin prep Papanicolaou smear with manual screening 290.0 mg/L NO RANGE EST. [facility] Work Phone: Thin prep Papanicolaou smear with manual screening 13 U/L 15-37 [facility] Work Phone: Thin prep Papanicolaou smear with manual screening 4 5-15 [facility] Work Phone: Urine creatinine measurement (mass/volume)on 02-07-2022 Creatinine (U) [Mass/Vol] 189.00 mg/dL NO RANGE EST. [facility] Work Phone: Whole blood hemoglobin A1c/t otal hemoglobin ratio (mass fraction)on 02-07-2022 HbA1c (Bld) [Mass fraction] 5.1 % 3.8-5.6 [facility] Comment on above: Normal < 5.7 % Predi abetic 5.7 - 6.4 % Diabetic >or= 6.5 % Please note range changes. Hany 01-29-2022 CNPN Telephone (AGSPINE3) ---- TORI GRAY ([id number]) 1980 F Date Time Provider Department 01/29/22 [...] patient by phone, Left brief message on Nim[employer] stating to call and schedule. Darrion Carson [...] bed with current PAP mask. - Ipratropium What Cheer (ATROVENT) 0.03 % nasal spray Use 2 Sprays in the nose every 12 hours. - metroNIDAZOLE (METROGEL) 0.75 % Topical Gel Apply to affected area twice daily. - [place]-3 Fatty Acids (FISH OIL) 500 mg cap Take 1 capsule by mouth once daily. - blood sugar diagnostic (BLOOD GLUCOSE TEST) test strip Test blood sugar(s) 1 times daily. Dx: Type 2 DM - Controlled E11.9 Insulin: Yes - Lancets lancets Test blood sugar(s) 1 times daily. Dx: Type 2 DM - Controlled E11.9 Insulin: No - Wrfjjspx-Bb-Djv-Fe- FA ( FORMULA) ORAL Tab Take 1 [...] 01/23/2010 Routine general medical examination at a [facility]*01/23/2010 12/06/2012 Class: Chronic Routine gynecological examination [Z01.419] 01/23/2010 02/22/2014 Class: Chronic Morbid Obesity [E66.01] 01/23/2010 Lumbar Disc Disorder [M51.9] 02/16/2010 Routine general medical examination at [facility]*12/06/2012 02/22/2014 Anxiety [F41.9] 06/07/2014 Type 2 diabetes mellitus with microalbuminuria,*0 07/04/2018 Fatty liver [K76.0] 07/21/2018 LETITIA (obstructive sleep apnea) [G47.33] 07/21/2018 Microalbuminuria [R80.9] 09/30/2018 Obesity, Class III, BMI >= 40 [E66.01] 11/26/2019 Prolonged Q-T interval on ECG [R94.31] 03/31/2020 Encounter Status:Closed by DARRION CARSON on 01/30/22 [facility] Laboratory - Microbiology an d Antimicrobial susceptibilityon 11-21-2021 SARS-CoV-2 (COVID-19) RNA ALLYSON+probe Ql (Unsp spec) Not detected [facility] Work Phone: Office Visit: Jojo Removal, possible other optionson 09-09-2017 Documentation of current medications (procedure) Done Invalid Interpretation Code [facility] Fall risk assessment No Invalid Interpretation Code [facility] Tobacco smoking status NHIS Never Invalid Interpretation Code [facility] Tobacco use CPHS Never smoker Invalid Interpretation Code [facility] Office Visit: Spine Visit- L ow back pain [facility] 09-05-2017 Documentation of current medications (procedure) Done Invalid Interpretation Code [facility] Work Phone: Office Visit: Spine Visit- L ow back painon 09-03-2017 Documentation of current medications (procedure) Done Invalid Interpretation Code [facility] Work Phone: Office Visit: Spine Visit- L ow back [facility] 08-22-2017 Documentation of current medications (procedure) Done Invalid Interpretation Code [facility] Work Phone: Office Visiton 08-09-2017 Dietary management education, guidance, and counseling (procedure) yes Invalid Interpretation Code [facility] Work Phone: Tobacco smoking status NHIS Never Invalid Interpretation Code [facility] Work Phone: Tobacco use CPHS Never smoker Invalid Interpretation Code [facility] Work Phone: Office Visit: [facility]: low back painon 05-02-2017 Fall risk assessment No Invalid Interpretation Code [facility] Work Phone: Office Visit: Jojo Removal, possible other optionson 06-04-2014 General categories [Interpretation] of Cervical or vaginal smear or scraping by Cyto stain Normal Invalid Interpretation Code [facility] Vital Signs Date Time Vital Sign Value Performing Clinician Facility 06-23-2025 09:45-0400 Body temperature 96.6 [degF] Dr. Ivette Grimes MD Work Phone: [facility] 06-23-2025 09:45-0400 Diastolic blood pressure 60 mm[Hg] Dr. Ivette Grimes MD Work Phone: [phone] [address] 06-23-2025 09:45-0400 Heart rate 65 /min Dr. Ivette Grimes MD Work Phone: [phone] [place] [address] 06-23-2025 09:45-0400 Respiratory rate 16 /min Dr. Ivette Grimes MD Work Phone: [phone] [place] [address] 06-23-2025 09:45-0400 SaO2% (BldA) [Mass fraction] 95 % Dr. Ivette Grimes MD Work Phone: [phone] [place] [address] 06-23-2025 09:45-0400 Systolic blood pressure 112 mm[Hg] Dr. Ivette Grimes MD Work Phone: [facility] 06-23-2025 09:15-0400 Inhaled oxygen flow rate 2 L/min Dr. Ivette Grimes MD Work Phone: [phone] [place] [address] 06-23-2025 06:40-0400 Body height 170.[address] Ivette Grmies MD Work Phone: [facility] 06-23-2025 06:40-0400 Body mass index (BMI) [Ratio] 43.4 kg/m2 Dr. Ivette Grimes MD Work Phone: [facility] [facility] 06-[facility]25 06:40-0400 Body weight [address] Ivette Grimes MD Work Phone: [facility] 06-07-2025 18:27-0400 Body mass index (BMI) [Ratio] 44.26 kg/m2 Ivette Grimes MD Work Phone: [facility] 06-07-2025 18:27-0400 Body weight 128.19 kg Ivette Grimes MD Work Phone: [facility] 06-07-2025 18:27-0400 Diastolic blood pressure 80 mm[Hg] Ivette Grimes MD Work Phone: [facility] 06-07-2025 18:27-0400 Heart rate 78 /min Ivette Grimes MD Work Phone: [facility] 06-07-2025 18:27-0400 SaO2% (BldA) [Mass fraction] 98 % Ivette Grimes MD Work Phone: [facility] 06-07-2025 18:27-0400 Systolic blood pressure 132 mm[Hg] Ivette Grimes MD Work Phone: [facility] 05-06-2025 10:04-0400 Body height 170.[address] Ivette Grimes MD Work Phone: [facility] 05-06-2025 10:04-0400 Body mass index (BMI) [Ratio] 43 kg/m2 Dr. Ivette Grimes MD Work Phone: [facility] 05-06-2025 10:04-0400 Body weight 124.[address] Ivette Grimes MD Work Phone: [facility] 03-22-2025 09:08-0400 Body height 170.[address] Ivette Grimes MD Work Phone: [facility] 01-22-2025 15:43-0400 Body mass index (BMI) [Ratio] 44.17 kg/m2 Ivette Grimes MD Work Phone: [facility] 01-22-2025 15:43-0400 Body weight 127.91 kg Ivette Grimes MD Work Phone: [facility] 01-22-2025 15:43-0400 Diastolic blood pressure 72 mm[Hg] Ivette Grimes MD Work Phone: [facility] 01-22-2025 15:43-0400 Heart rate 77 /min Ivette Grimes MD Work Phone: [facility] 01-22-2025 15:43-0400 SaO2% (BldA) [Mass fraction] 97 % Ivette Grimes MD Work Phone: [facility] 01-22-2025 15:43-0400 Systolic blood pressure 122 mm[Hg] Ivette Grimes MD Work Phone: [facility] 12-11-2024 11:08-0500 Body mass index (BMI) [Ratio] 43.4 kg/m2 Jennifrank Albaradohof [employer] Work Phone: [facility] 12-11-2024 11:08-0500 Body temperature 97.81 [degF] Jenni Tannhof [employer] TEACHER Work Phone: [facility] 12-11-2024 11:08-0500 Body weight 125.7 kg Jennifrank Albaradohof [employer] TEACHER Work Phone: [facility] 12-11-2024 11:08-0500 Diastolic blood pressure 74 mm[Hg] Jenni Tannhof [employer] TEACHER Work Phone: [facility] 12-11-2024 11:08-0500 Heart rate 72 /min Jenni Tannhof [employer] TEACHER Work Phone: [facility] 12-11-2024 11:08-0500 Respiratory rate 16 /min Jenni Tannhof [employer]EBD TEACHER Work Phone: [facility] 12-11-2024 11:08-0500 SaO2% (BldA) [Mass fraction] 99 % Jenni Tannhof [employer] TEACHER Work Phone: [facility] 12-11-2024 11:08-0500 Systolic blood pressure 138 mm[Hg] Jenni Tannhof [employer] TEACHER Work Phone: 6(266)304-232331 [place] [address] 11-11-2024 12:34-0500 Heart rate 74 /min Dr. Ivette Grimes MD Work Phone: 0(609)933-974796 [place] [address] 11-11-2024 12:34-0500 Respiratory rate 20 /min Dr. Ivette Grimes MD Work Phone: 8(587)087-603196 [place] [address] 11-11-2024 12:34-0500 SaO2% (BldA) [Mass fraction] 100 % Dr. Ivette Grimes MD Work Phone: 6(060)530-508596 [place] [address] 11-11-2024 11:00-0500 Diastolic blood pressure 60 mm[Hg] Dr. Ivette Grimes MD Work Phone: 1(344)270-970096 [place] [address] 11-11-2024 11:00-0500 Systolic blood pressure 108 mm[Hg] Dr. Ivette Grimes MD Work Phone: 0(464)935-131996 [place] [address] 11-11-2024 05:55-0500 Body height 170.[address] Ivette Grimes MD Work Phone: 1(314)025-750496 [place] [address] 11-11-2024 05:55-0500 Body mass index (BMI) [Ratio] 45.2 kg/m2 Dr. Ivette Grimes MD Work Phone: 4(116)599-086196 [place] [address] 11-11-2024 05:55-0500 Body temperature 97.5 [degF] Dr. Ivette Grimes MD Work Phone: 8(580)224-904496 [place] [address] 11-11-2024 05:55-0500 Body weight [address] Ivette Grimes MD Work Phone: 5(817)890-061996 [place] [address] 10-16-2024 21:50-0500 Body temperature 98 [degF] Dr. Ivette Grimes MD Work Phone: 0(401)712-176296 [place] [address] 10-16-2024 21:50-0500 Diastolic blood pressure 72 mm[Hg] Dr. Ivette Grimes MD Work Phone: 1(598)616-772996 [place] [address] 10-16-2024 21:50-0500 Heart rate 60 /min Dr. Ivette Grimes MD Work Phone: [facility] 10-16-2024 21:50-0500 Respiratory rate 16 /min Dr. Ivette Grimes MD Work Phone: [facility] 10-16-2024 21:50-0500 SaO2% (BldA) [Mass fraction] 95 % Dr. Ivette Grimes MD Work Phone: [facility] 10-16-2024 21:50-0500 Systolic blood pressure 137 mm[Hg] Dr. Ivette Grimes MD Work Phone: [facility] 10-16-2024 20:23-0500 Body mass index (BMI) [Ratio] 43 kg/m2 Dr. Ivette Grimes MD Work Phone: [facility] 10-16-2024 20:23-0500 Body weight 124.[address] Ivette Griems MD Work Phone: [facility] 09-03-2024 12:51-0400 Body height 170.2 cm Fatuma Robertser PA-C Work Phone: [facility] 09-03-2024 12:51-0400 Body mass index (BMI) [Ratio] 43.8 kg/m2 Fatuma Queener PA-C Work Phone: [facility] 09-03-2024 12:51-0400 Body weight 126.85 kg Fatuma Queener PA-C Work Phone: [facility] 09-03-2024 12:51-0400 Diastolic blood pressure 71 mm[Hg] Fatuma Queener PA-C Work Phone: [facility] 09-03-2024 12:51-0400 Heart rate 67 /min Fatuma Queener PA-C Work Phone: [facility] 09-03-2024 12:51-0400 SaO2% (BldA) [Mass fraction] 97 % Fatuma Queener PA-C Work Phone: [facility] 09-03-2024 12:51-0400 Systolic blood pressure 153 mm[Hg] Fatuma Beckford PA-C Work Phone: [facility] 08-05-2024 08:04-0400 Body mass index (BMI) [Ratio] 42.81 kg/m2 Ivette Grimes MD Work Phone: [facility] 08-05-2024 08:04-0400 Body weight 131.5 kg Ivette Grimes MD Work Phone: [facility] 08-05-2024 08:04-0400 Diastolic blood pressure 62 mm[Hg] Ivette Grimes MD Work Phone: [facility] 08-05-2024 08:04-0400 Heart rate 56 /min Ivette Grimes MD Work Phone: [facility] 08-05-2024 08:04-0400 SaO2% (BldA) [Mass fraction] 96 % Ivette Grimes MD Work Phone: [facility] 08-05-2024 08:04-0400 Systolic blood pressure 114 mm[Hg] Ivette Grimes MD Work Phone: [facility] 07-03-2024 15:29-0400 Body mass index (BMI) [Ratio] 41.94 kg/m2 Ivette Grimes MD Work Phone: [facility] 07-03-2024 15:29-0400 Body weight 128.82 kg Ivette Grimes MD Work Phone: [facility] 07-03-2024 15:29-0400 Diastolic blood pressure 82 mm[Hg] Ivette Grimes MD Work Phone: [facility] 07-03-2024 15:29-0400 Heart rate 78 /min Ivette Grimes MD Work Phone: [facility] 07-03-2024 15:29-0400 SaO2% (BldA) [Mass fraction] 98 % Ivette Grimes MD Work Phone: [facility] 07-03-2024 15:29-0400 Systolic blood pressure 152 mm[Hg] Ivette Grimes MD Work Phone: [facility] 04-02-2024 12:46-0400 Body height 175.3 cm Fatuma Beckford PA-C Work Phone: [facility] 04-02-2024 12:46-0400 Body mass index (BMI) [Ratio] 41.02 kg/m2 Fatuma Beckford PA-C Work Phone: [facility] 04-02-2024 12:46-0400 Body weight 126 kg Fatuma Beckford PA-C Work Phone: [facility] 04-02-2024 12:46-0400 Diastolic blood pressure 77 mm[Hg] Fatuma Beckford PA-C Work Phone: [facility] 04-02-2024 12:46-0400 Heart rate 59 /min Fatuma Beckford PA-C Work Phone: [facility] 04-02-2024 12:46-0400 SaO2% (BldA) [Mass fraction] 99 % Fatuma Beckford PA-C Work Phone: [facility] 04-02-2024 12:46-0400 Systolic blood pressure 135 mm[Hg] Fatuma Beckford PA-C Work Phone: [facility] 02-04-2024 04:03-0400 Body temperature 98 [degF] Dr. Ivette Grimes Work Phone: [facility] 02-04-2024 04:03-0400 Diastolic blood pressure 56 mm[Hg] Dr. Ivette Grimes Work Phone: [facility] 02-04-2024 04:03-0400 Heart rate 59 /min Dr. Ivette Grimes Work Phone: [facility] 02-04-2024 04:03-0400 Respiratory rate 16 /min Dr. Ivette Grimes Work Phone: [facility] 02-04-2024 04:03-0400 SaO2% (BldA) [Mass fraction] 100 % Dr. Ivette Grimes Work Phone: [facility] 02-04-2024 04:03-0400 Systolic blood pressure 107 mm[Hg] Dr. Ivette Grimes Work Phone: [facility] 02-04-2024 01:12-0400 Body height 170.[address] Ivette Grimes Work Phone: [facility] 02-04-2024 01:12-0400 Body mass index (BMI) [Ratio] 43 kg/m2 Dr. Ivette Grimes Work Phone: [facility] 02-04-2024 01:120400 Body weight 124.[address] Ivette Grimes Work Phone: [facility] 12-26-2023 10:10-0500 Body height 170.2 cm Fatuma Robretser PA-C Work Phone: [facility] 12-26-2023 10:10-0500 Body weight 123.35 kg Fatuma Robertser PA-C Work Phone: [facility] 12-26-2023 10:10-0500 Diastolic blood pressure 62 mm[Hg] Fatuma Robertser PA-C Work Phone: [facility] 12-26-2023 10:10-0500 Heart rate 68 /min Fatuma Robertser PA-C Work Phone: [facility] 12-26-2023 10:10-0500 Systolic blood pressure 118 mm[Hg] Fatuma Robertser PA-C Work Phone: [facility] 12-10-2023 05:52-0500 Body height 170.[address] Ivette Grimes Work Phone: [facility] 12-10-2023 05:52-0500 Body mass index (BMI) [Ratio] 42.3 kg/m2 Dr. Ivette Grimes Work Phone: [facility] 12-10-2023 05:52-0500 Body temperature 98 [degF] Dr. Ivette Grimes Work Phone: [facility] 12-10-2023 05:52-0500 Body weight 122.[address] Ivette Grimes Work Phone: [facility] 12-10-2023 05:52-0500 Diastolic blood pressure 61 mm[Hg] Dr. Ivette Grimes Work Phone: [facility] 12-10-2023 05:52-0500 Heart rate 68 /min Dr. Ivette Grimes Work Phone: [facility] 12-10-2023 05:52-0500 Respiratory rate 16 /min Dr. Ivette Grimes Work Phone: [facility] 12-10-2023 05:52-0500 SaO2% (BldA) [Mass fraction] 98 % Dr. Ivette Grimes Work Phone: [facility] 12-10-2023 05:52-0500 Systolic blood pressure 108 mm[Hg] Dr. Ivette Grimes Work Phone: [facility] 12-09-2023 17:15-0500 Body weight 122.92 kg Ivette Grimes MD Work Phone: [facility] 12-09-2023 17:15-0500 Diastolic blood pressure 62 mm[Hg] Ivette Grimes MD Work Phone: [facility] 12-09-2023 17:15-0500 Heart rate 60 /min Ivette Grimes MD Work Phone: [facility] 12-09-2023 17:15-0500 SaO2% (BldA) [Mass fraction] 97 % Ivette Grimes MD Work Phone: [facility] 12-09-2023 17:15-0500 Systolic blood pressure 124 mm[Hg] Ivette Grimes MD Work Phone: [facility] 10-27-2023 15:06-0500 Body height 170.18 cm Self Referred [facility] 10-27-2023 15:06-0500 Body mass index (BMI) [Ratio] 43.9 kg/m2 Self Referred [facility] 10-27-2023 15:06-0500 Body temperature 97 [degF] Self Referred [facility] 10-27-2023 15:06-0500 Body weight 127.45 kg Self Referred [facility] 10-27-2023 15:06-0500 Diastolic blood pressure 90 mm[Hg] Self Referred [facility] 10-27-2023 15:06-0500 Heart rate 80 /min Self Referred [facility] 10-27-2023 15:06-0500 Respiratory rate 16 /min Self Referred [facility] 10-27-2023 15:06-0500 SaO2% (BldA) [Mass fraction] 98 % Self Referred [facility] 10-27-2023 15:06-0500 Systolic blood pressure 173 mm[Hg] Self Referred [facility] 08-07-2023 12:17-0400 Body temperature 97.5 [degF] Self Referred [facility] 08-07-2023 12:17-0400 Diastolic blood pressure 75 mm[Hg] Self Referred [facility] 08-07-2023 12:17-0400 Heart rate 53 /min Self Referred [facility] 08-07-2023 12:17-0400 Respiratory rate 14 /min Self Referred [facility] 08-07-2023 12:17-0400 SaO2% (BldA) [Mass fraction] 99 % Self Referred [facility] 08-07-2023 12:17-0400 Systolic blood pressure 119 mm[Hg] Self Referred [facility] 08-07-2023 11:00-0400 Body mass index (BMI) [Ratio] 47.2 kg/m2 Self Referred [facility] 08-05-2023 17:16-0400 Body height 170.18 cm Self Referred [facility] 08-05-2023 17:16-0400 Body weight 136.8 kg Self Referred [facility] 08-05-2023 13:00-0400 Body temperature 97.4 [degF] Dr. Ivette Grimes Work Phone: [facility] 08-05-2023 13:00-0400 Diastolic blood pressure 76 mm[Hg] Dr. Ivette Grimes Work Phone: [facility] 08-05-2023 13:00-0400 Heart rate 58 /min Dr. Ivette Grimes Work Phone: [facility] 08-05-2023 13:00-0400 Respiratory rate 14 /min Dr. Ivette Grimes Work Phone: [facility] 08-05-2023 13:00-0400 SaO2% (BldA) [Mass fraction] 96 % Dr. Ivette Grimes Work Phone: [facility] 08-05-2023 13:00-0400 Systolic blood pressure 156 mm[Hg] Dr. Ivette Grimes Work Phone: [facility] 08-05-2023 11:33-0400 Body mass index (BMI) [Ratio] 47.2 kg/m2 Dr. Ivette Grimes Work Phone: [facility] 08-05-2023 09:51-0400 Body weight 136.[address] Ivette Grimes Work Phone: [facility] 08-05-2023 09:40-0400 Body height 170.[address] Ivette Grimes Work Phone: [facility] 06-07-2023 15:01-0400 Diastolic blood pressure 76 mm[Hg] Ivette Mejia Jr., MD Work Phone: [facility] 06-07-2023 15:01-0400 Heart rate 75 /min Ivette Mejia Jr., MD Work Phone: [facility] 06-07-2023 15:01-0400 Respiratory rate 16 /min Ivette Mejia Jr., MD Work Phone: [facility] 06-07-2023 15:01-0400 SaO2% (BldA) [Mass fraction] 97 % Ivette Mejia Jr., MD Work Phone: [facility] 06-07-2023 15:01-0400 Systolic blood pressure 138 mm[Hg] Ivette Mejia Jr., MD Work Phone: [facility] 06-06-2023 09:39-0400 Body weight 132 kg Ivette Grimes MD Work Phone: [facility] 06-06-2023 09:39-0400 Diastolic blood pressure 81 mm[Hg] Ivette Grimes MD Work Phone: [facility] 06-06-2023 09:39-0400 Heart rate 51 /min Ivette Grimes MD Work Phone: [facility] 06-06-2023 09:39-0400 SaO2% (BldA) [Mass fraction] 98 % Ivette Grimes MD Work Phone: [facility] 06-06-2023 09:39-0400 Systolic blood pressure 129 mm[Hg] Ivette Grimes MD Work Phone: [facility] 05-20-2023 22:47-0400 Diastolic blood pressure 88 mm[Hg] Dr. Ivette Grimes Work Phone: [facility] 05-20-2023 22:47-0400 Heart rate 78 /min Dr. Ivette Grimes Work Phone: [facility] 05-20-2023 22:47-0400 Respiratory rate 18 /min Dr. Ivette Grimes Work Phone: [facility] 05-20-2023 22:47-0400 SaO2% (BldA) [Mass fraction] 100 % Dr. Ivette Grimes Work Phone: [facility] 05-20-2023 22:47-0400 Systolic blood pressure 134 mm[Hg] Dr. Ivette Grimes Work Phone: 8(121)458-664516 [place] [address] 05-20-2023 21:28-0400 Body height 170.[address] Ivette Grimes Work Phone: [facility] 05-20-2023 21:28-0400 Body mass index (BMI) [Ratio] 45.4 kg/m2 Dr. Ivette Grimes Work Phone: 1(941)519-300416 [place] [address] 05-20-2023 21:28-0400 Body temperature 97.5 [degF] Dr. Ivette Grimes Work Phone: 0(363)455-530816 [place] [address] 05-20-2023 21:28-0400 Body weight 131.[address] Ivette Grimes Work Phone: 1(974)512-363516 [place] [address] 05-17-2023 10:04-0400 Body height 170.2 cm Fatuma Robertser PA-C Work Phone: [facility] 05-17-2023 10:04-0400 Body weight 132 kg Fatuma Robertser PA-C Work Phone: [facility] 05-17-2023 10:04-0400 Diastolic blood pressure 70 mm[Hg] Fatuma Robertser PA-C Work Phone: [facility] 05-17-2023 10:04-0400 Heart rate 68 /min Fatuma Robertser PA-C Work Phone: [facility] 05-17-2023 10:04-0400 SaO2% (BldA) [Mass fraction] 97 % Fatuma Robertser PA-C Work Phone: [facility] 05-17-2023 10:04-0400 Systolic blood pressure 123 mm[Hg] Fatuma Robertser PA-C Work Phone: [facility] 03-05-2023 12:35-0400 Body temperature 97.81 [degF] Fatuma Robertser PA-C Work Phone: [facility] 03-05-2023 12:35-0400 Body weight 130.09 kg Fatuma Robertser PA-C Work Phone: [facility] 03-05-2023 12:35-0400 Diastolic blood pressure 76 mm[Hg] Fatuma Robertser PA-C Work Phone: [facility] 03-05-2023 12:35-0400 Heart rate 61 /min Fautma Robertser PA-C Work Phone: [facility] 03-05-2023 12:35-0400 Respiratory rate 16 /min Fatuma Queener PA-C Work Phone: [facility] 03-05-2023 12:35-0400 SaO2% (BldA) [Mass fraction] 98 % Fatuma Queener PA-C Work Phone: [facility] 03-05-2023 12:35-0400 Systolic blood pressure 145 mm[Hg] Fatuma Beckford PA-C Work Phone: [facility] 03-05-2023 08:56-0400 Body height 170.2 cm Galina Camacho MD Work Phone: [facility] 03-05-2023 08:56-0400 Body weight 130.18 kg Galina Camacho MD Work Phone: [facility] 03-05-2023 08:56-0400 Diastolic blood pressure 82 mm[Hg] Galina Camacho MD Work Phone: [facility] 03-05-2023 08:56-0400 Systolic blood pressure 122 mm[Hg] Galina Camacho MD Work Phone: [facility] 02-28-2023 14:20-0400 Body weight 131.54 kg Ivette Grimes MD Work Phone: [facility] 02-28-2023 14:20-0400 Diastolic blood pressure 72 mm[Hg] Ivette Grimes MD Work Phone: [facility] 02-28-2023 14:20-0400 Heart rate 79 /min Ivette Grimes MD Work Phone: [facility] 02-28-2023 14:20-0400 SaO2% (BldA) [Mass fraction] 97 % Ivette Grimes MD Work Phone: [facility] 02-28-2023 14:20-0400 Systolic blood pressure 138 mm[Hg] Ivette Grimes MD Work Phone: [facility] 01-31-2023 09:21-0400 Body weight 130.18 kg Ivette Grimes MD Work Phone: [facility] 01-31-2023 09:21-0400 Diastolic blood pressure 82 mm[Hg] Ivette Grimes MD Work Phone: [facility] 01-31-2023 09:21-0400 Heart rate 65 /min Ivette Grimes MD Work Phone: [facility] 01-31-2023 09:21-0400 SaO2% (BldA) [Mass fraction] 98 % Ivette Grimes MD Work Phone: [facility] 01-31-2023 09:21-0400 Systolic blood pressure 120 mm[Hg] Ivette Grimes MD Work Phone: [facility] 01-24-2023 10:23-0400 Heart rate 64 /min Elle Sanchez MD Work Phone: [facility] 01-24-2023 10:23-0400 Respiratory rate 16 /min Elle Sanchez MD Work Phone: [facility] 01-24-2023 10:23-0400 SaO2% (BldA) [Mass fraction] 98 % Elle Sanchez MD Work Phone: [facility] 01-17-2023 11:21-0400 Body height 170.2 cm Ivette Grimes MD Work Phone: [facility] 01-17-2023 11:21-0400 Body weight 128.82 kg Ivette Grimes MD Work Phone: [facility] 01-17-2023 11:21-0400 Diastolic blood pressure 84 mm[Hg] Ivette Grimes MD Work Phone: [facility] 01-17-2023 11:21-0400 Heart rate 70 /min Ivette Grimes MD Work Phone: [facility] 01-17-2023 11:21-0400 SaO2% (BldA) [Mass fraction] 98 % Ivette Grimes MD Work Phone: [facility] 01-17-2023 11:21-0400 Systolic blood pressure 148 mm[Hg] Ivette Grimes MD Work Phone: [facility] 01-04-2023 11:30-0500 Body weight 128.37 kg Ivette Grimes MD Work Phone: [facility] 01-04-2023 11:30-0500 Diastolic blood pressure 78 mm[Hg] Ivette Grimes MD Work Phone: [facility] 01-04-2023 11:30-0500 Heart rate 85 /min Ivette Grimes MD Work Phone: [facility] 01-04-2023 11:30-0500 SaO2% (BldA) [Mass fraction] 97 % Ivette Grimes MD Work Phone: [facility] 01-04-2023 11:30-0500 Systolic blood pressure 132 mm[Hg] Ivette Grimes MD Work Phone: [facility] 12-28-2022 14:55-0500 Body height 170.[address] Ivette Grimes Work Phone: [facility] 12-28-2022 14:55-0500 Body mass index (BMI) [Ratio] 44.6 kg/m2 Dr. Ivette Grimes Work Phone: [facility] 12-28-2022 14:55-0500 Body weight 129.[address] Ivette Grimes Work Phone: [facility] 12-28-2022 14:55-0500 Diastolic blood pressure 79 mm[Hg] Dr. Ivette Grimes Work Phone: [facility] 12-28-2022 14:55-0500 Heart rate 71 /min Dr. Ivette Grimes Work Phone: [facility] 12-28-2022 14:55-0500 Respiratory rate 20 /min Dr. Ivette Grimes Work Phone: [facility] 12-28-2022 14:55-0500 Systolic blood pressure 130 mm[Hg] Dr. Ivette Grimes Work Phone: [facility] 12-26-2022 11:10-0500 Body height 170.2 cm Ivette Grimes MD Work Phone: [facility] 12-26-2022 11:10-0500 Body weight 128.37 kg Ivette Grimes MD Work Phone: [facility] 12-26-2022 11:10-0500 Diastolic blood pressure 74 mm[Hg] Ivette Grimes MD Work Phone: [facility] 12-26-2022 11:10-0500 Heart rate 83 /min Ivette Grimes MD Work Phone: [facility] 12-26-2022 11:10-0500 SaO2% (BldA) [Mass fraction] 97 % Ivette Grimes MD Work Phone: [facility] 12-26-2022 11:10-0500 Systolic blood pressure 140 mm[Hg] Ivette Grimes MD Work Phone: [facility] 12-14-2022 09:16-0500 Body height 170.2 cm Ivette Grimes MD Work Phone: [facility] 12-14-2022 09:16-0500 Body weight 125.65 kg Ivette Grimes MD Work Phone: [facility] 12-14-2022 09:16-0500 Diastolic blood pressure 98 mm[Hg] Ivette Grimes MD Work Phone: [facility] 12-14-2022 09:16-0500 Heart rate 75 /min Ivette Grimes MD Work Phone: [facility] 12-14-2022 09:16-0500 SaO2% (BldA) [Mass fraction] 98 % Ivette Grimes MD Work Phone: [facility] 12-14-2022 09:16-0500 Systolic blood pressure 160 mm[Hg] Ivette Grimes MD Work Phone: [facility] 12-07-2022 16:34-0500 Body temperature 98.8 [degF] Ivette Mejia Jr., MD Work Phone: [facility] 12-07-2022 16:34-0500 Body weight 126.01 kg Ivette Mejia Jr., MD Work Phone: [facility] 12-07-2022 16:34-0500 Diastolic blood pressure 94 mm[Hg] Ivette Mejia Jr., MD Work Phone: [facility] 12-07-2022 16:34-0500 Heart rate 72 /min Ivette Mejia Jr., MD Work Phone: [facility] 12-07-2022 16:34-0500 Respiratory rate 20 /min Ivette Mejia Jr., MD Work Phone: [facility] 12-07-2022 16:34-0500 SaO2% (BldA) [Mass fraction] 97 % Ivette Mejia Jr., MD Work Phone: [facility] 12-07-2022 16:34-0500 Systolic blood pressure 160 mm[Hg] Ivette Mejia Jr., MD Work Phone: [facility] 12-06-2022 08:07-0500 Body mass index (BMI) [Ratio] 43.4 kg/m2 Dr. Ivette Grimes Work Phone: [facility] 12-06-2022 08:07-0500 Body temperature 97.7 [degF] Dr. Ivette Grimes Work Phone: [facility] 12-06-2022 08:07-0500 Body weight 125.[address] Ivette Grimes Work Phone: [facility] 12-06-2022 08:07-0500 Diastolic blood pressure 79 mm[Hg] Dr. Ivette Grimes Work Phone: [facility] 12-06-2022 08:07-0500 Heart rate 70 /min Dr. Ivette Grimes Work Phone: [facility] 12-06-2022 08:07-0500 Respiratory rate 18 /min Dr. Ivette Grimes Work Phone: [facility] 12-06-2022 08:07-0500 SaO2% (BldA) [Mass fraction] 98 % Dr. Ivette Grimes Work Phone: [facility] 12-06-2022 08:07-0500 Systolic blood pressure 141 mm[Hg] Dr. Ivette Grimes Work Phone: [facility] 12-03-2022 20:26-0500 Heart rate 75 /min Dr. Ivette Grimes Work Phone: [facility] 12-03-2022 20:26-0500 Respiratory rate 18 /min Dr. Ivette Grimes Work Phone: 6(723)827-294896 [place] [address] 12-03-2022 20:26-0500 SaO2% (BldA) [Mass fraction] 96 % Dr. Ivette Grimes Work Phone: 7(490)164-234396 [place] [address] 12-03-2022 18:25-0500 Body mass index (BMI) [Ratio] 43.4 kg/m2 Dr. Ivette Grimes Work Phone: 4(780)283-799496 [place] [address] 12-03-2022 18:25-0500 Body temperature 97.8 [degF] Dr. Ivette Grimes Work Phone: 1(660)646-289196 [place] [address] 12-03-2022 18:25-0500 Body weight 125.[address] Ivette Grimes Work Phone: 0(642)248-648896 [place] [address] 12-03-2022 18:25-0500 Diastolic blood pressure 91 mm[Hg] Dr. Ivette Grimes Work Phone: 9(335)393-322096 [place] [address] 12-03-2022 18:25-0500 Systolic blood pressure 176 mm[Hg] Dr. Ivette Grimes Work Phone: 3(333)297-069496 [place] [address] 11-27-2022 14:36-0500 Body height 170.[address] Ivette Grimes Work Phone: 0(809)207-107796 [place] [address] 11-27-2022 14:36-0500 Body mass index (BMI) [Ratio] 42.7 kg/m2 Dr. Ivette Grimes Work Phone: 0(667)765-784996 [place] [address] 11-27-2022 14:36-0500 Body temperature 98.1 [degF] Dr. Ivette Grimes Work Phone: 3(438)157-072296 [place] [address] 11-27-2022 14:36-0500 Body weight 123.[address] Ivette Grimes Work Phone: 8(123)013-369296 [place] [address] 11-27-2022 14:36-0500 Diastolic blood pressure 81 mm[Hg] Dr. Ivette Grimes Work Phone: 2(376)209-985896 [place] [address] 11-27-2022 14:36-0500 Heart rate 70 /min Dr. Ivette Grimes Work Phone: 4(937)826-289796 [place] [address] 11-27-2022 14:36-0500 Respiratory rate 15 /min Dr. Ivette Grimes Work Phone: [facility] 11-27-2022 14:36-0500 SaO2% (BldA) [Mass fraction] 99 % Dr. Ivette Grimes Work Phone: [facility] 11-27-2022 14:36-0500 Systolic blood pressure 154 mm[Hg] Dr. Ivette Grimes Work Phone: [facility] 11-27-2022 13:51-0500 Body height 170.2 cm Ievtte Grimes MD Work Phone: [facility] 11-27-2022 13:51-0500 Body weight 123.83 kg Ivette Grimes MD Work Phone: [facility] 11-27-2022 13:51-0500 Diastolic blood pressure 84 mm[Hg] Ivette Griems MD Work Phone: [facility] 11-27-2022 13:51-0500 Heart rate 75 /min Ivette Grimes MD Work Phone: [facility] 11-27-2022 13:51-0500 SaO2% (BldA) [Mass fraction] 97 % Ivette Grimes MD Work Phone: [facility] 11-27-2022 13:51-0500 Systolic blood pressure 150 mm[Hg] Ivette Grimes MD Work Phone: [facility] 11-24-2022 15:07-0500 Heart rate 67 /min Dr. Ivette Grimes Work Phone: [facility] 11-24-2022 15:07-0500 SaO2% (BldA) [Mass fraction] 97 % Dr. Ivette Grimes Work Phone: [facility] 11-24-2022 13:43-0500 Diastolic blood pressure 64 mm[Hg] Dr. Ivette Grimes Work Phone: [facility] 11-24-2022 13:43-0500 Respiratory rate 16 /min Dr. Ivette Grimes Work Phone: [facility] 11-24-2022 13:43-0500 Systolic blood pressure 132 mm[Hg] Dr. Ivette Grimes Work Phone: [facility] 11-24-2022 11:44-0500 Body height 170.[address] Ivette Grimes Work Phone: [facility] 11-24-2022 11:44-0500 Body mass index (BMI) [Ratio] 47.2 kg/m2 Dr. Ivette Grimes Work Phone: [facility] 11-24-2022 11:44-0500 Body temperature 97.9 [degF] Dr. Ivette Grimes Work Phone: [facility] 11-24-2022 11:44-0500 Body weight [address] Ivette Grimes Work Phone: [facility] 11-08-2022 13:35-0500 Heart rate 70 /min Adelina Mason [employer] TEACHER Work Phone: [facility] 11-08-2022 13:35-0500 Respiratory rate 14 /min Adelina Mason [employer]EBD TEACHER Work Phone: [facility] 11-08-2022 13:35-0500 SaO2% (BldA) [Mass fraction] 98 % Adelina Mason [employer].EBD TEACHER Work Phone: [facility] 09-04-2022 11:50-0400 Body height 170.2 cm Ivette Grimes MD Work Phone: [facility] 09-04-2022 11:50-0400 Body weight 123.11 kg Ivette Grimes MD Work Phone: [facility] 09-04-2022 11:50-0400 Diastolic blood pressure 80 mm[Hg] Ivette Grimes MD Work Phone: [facility] 09-04-2022 11:50-0400 Heart rate 74 /min Ivette Grimes MD Work Phone: [facility] 09-04-2022 11:50-0400 SaO2% (BldA) [Mass fraction] 98 % Ivette Grimes MD Work Phone: [facility] 09-04-2022 11:50-0400 Systolic blood pressure 160 mm[Hg] Ivette Grimes MD Work Phone: [facility] 08-16-2022 12:57-0400 Body height 170.[address] Ivette Grimes Work Phone: [facility] Work Phone: 08-16-2022 12:57-0400 Body mass index (BMI) [Ratio] 42.3 kg/m2 Dr. Ivette Grimes Work Phone: [facility] 08-16-2022 12:57-0400 Body weight 122.[address] Ivette Grimes Work Phone: [facility] 08-16-2022 12:57-0400 Diastolic blood pressure 78 mm[Hg] Dr. Ivette Grimes Work Phone: 0(733)733-389616 [place] [address] 08-16-2022 12:57-0400 Heart rate 73 /min Dr. Ivette Grimes Work Phone: 6(357)197-422416 [place] [address] 08-16-2022 12:57-0400 Respiratory rate 16 /min Dr. Ivette Grimes Work Phone: [facility] 08-16-2022 12:57-0400 Systolic blood pressure 117 mm[Hg] Dr. Ivette Grimes Work Phone: [facility] 08-07-2022 07:38-0400 Body height 170.[address] Ivette Grimes Work Phone: [facility] Work Phone: 08-07-2022 07:38-0400 Body mass index (BMI) [Ratio] 42.5 kg/m2 Dr. Ivette Grimes Work Phone: [facility] 08-07-2022 07:38-0400 Body temperature 99.1 [degF] Dr. Ivette Grimes Work Phone: [facility] 08-07-2022 07:38-0400 Body weight 123.[address] Ivette Grimes Work Phone: [facility] 08-07-2022 07:38-0400 Diastolic blood pressure 81 mm[Hg] Dr. Ivette Grimes Work Phone: [facility] 08-07-2022 07:38-0400 Heart rate 65 /min Dr. Ivette Grimes Work Phone: [facility] 08-07-2022 07:38-0400 Respiratory rate 16 /min Dr. Ivette Grimes Work Phone: [facility] 08-07-2022 07:38-0400 SaO2% (BldA) [Mass fraction] 97 % Dr. Ivette Grimes Work Phone: [facility] 08-07-2022 07:38-0400 Systolic blood pressure 130 mm[Hg] Dr. Ivette Grimes Work Phone: [facility] 08-02-2022 09:50-0400 Body weight 122.02 kg Ivette Grimes MD Work Phone: [facility] 08-02-2022 09:50-0400 Diastolic blood pressure 82 mm[Hg] Ivette Grimes MD Work Phone: [facility] 08-02-2022 09:50-0400 Heart rate 60 /min Ivette Grimes MD Work Phone: [facility] 08-02-2022 09:50-0400 Systolic blood pressure 126 mm[Hg] Ivette Grimes MD Work Phone: [facility] 07-19-2022 12:57-0400 Body height 170.2 cm Karen Bansal [employer]EBD TEACHER Work Phone: [facility] 07-19-2022 12:57-0400 Body weight 122.92 kg Karen Bansal [employer].EBD TEACHER Work Phone: [facility] 07-19-2022 12:57-0400 Diastolic blood pressure 57 mm[Hg] Karen Bansal [employer].EBD TEACHER Work Phone: [facility] 07-19-2022 12:57-0400 Heart rate 76 /min Karen Ocasioerich [employer].EBD TEACHER Work Phone: [facility] 07-19-2022 12:57-0400 Systolic blood pressure 115 mm[Hg] Karen Ocasioerich [employer].EBD TEACHER Work Phone: [facility] 06-07-2022 15:13-0400 Body temperature 97.81 [degF] Tara Dahlhausen [employer].EBD TEACHER Work Phone: [facility] 06-07-2022 15:13-0400 Body weight 119.84 kg Tara Dahlhausen [employer].EBD TEACHER Work Phone: [facility] 06-07-2022 15:13-0400 Diastolic blood pressure 68 mm[Hg] Tara Dahlhausen [employer].EBD TEACHER Work Phone: [facility] 06-07-2022 15:13-0400 Heart rate 80 /min Tara Dahlhausen [employer].EBD TEACHER Work Phone: [facility] 06-07-2022 15:13-0400 Respiratory rate 22 /min Tara Dahlhausen [employer].EBD TEACHER Work Phone: [facility] 06-07-2022 15:13-0400 SaO2% (BldA) [Mass fraction] 98 % Tara Dahlhausen [employer].EBD TEACHER Work Phone: [facility] 06-07-2022 15:13-0400 Systolic blood pressure 112 mm[Hg] Tara Dahlhausen [employer].EBD TEACHER Work Phone: [facility] 06-04-2022 14:39-0400 Body height 170.[address] Ivette Grimes Work Phone: [facility] Work Phone: 05-24-2022 11:01-0400 Heart rate 78 /min Adelina Mason [employer].EBD TEACHER Work Phone: [facility] 05-24-2022 11:01-0400 Respiratory rate 18 /min Adelina Mason [employer].EBD TEACHER Work Phone: [facility] 05-24-2022 11:01-0400 SaO2% (BldA) [Mass fraction] 98 % Adelina Thompson [employer].EBD TEACHER Work Phone: [facility] 05-10-2022 10:54-0400 Diastolic blood pressure 75 mm[Hg] Elle Sanchez MD Work Phone: [facility] 05-10-2022 10:54-0400 Heart rate 61 /min Elle Sanchez MD Work Phone: [facility] 05-10-2022 10:54-0400 Respiratory rate 20 /min Elle Sanchez MD Work Phone: [facility] 05-10-2022 10:54-0400 SaO2% (BldA) [Mass fraction] 98 % Elle Sanchez MD Work Phone: [facility] 05-10-2022 10:54-0400 Systolic blood pressure 130 mm[Hg] Elle Sanchez MD Work Phone: [facility] 05-01-2022 14:39-0400 Body weight 118.39 kg Ivette Grimes MD Work Phone: [facility] 05-01-2022 14:39-0400 Diastolic blood pressure 80 mm[Hg] Ivette Grimes MD Work Phone: [facility] 05-01-2022 14:39-0400 Heart rate 68 /min Ivette Grimes MD Work Phone: [facility] 05-01-2022 14:39-0400 Respiratory rate 18 /min Ivette Grimes MD Work Phone: [facility] 05-01-2022 14:39-0400 SaO2% (BldA) [Mass fraction] 98 % Ivette Grimes MD Work Phone: [facility] 05-01-2022 14:39-0400 Systolic blood pressure 132 mm[Hg] Ivette Grimes MD Work Phone: [facility] 04-09-2022 15:29-0400 Body temperature 97.5 [degF] Ivette Mejia Jr., MD Work Phone: [facility] 04-09-2022 15:29-0400 Body weight 122.2 kg Ivette Mejia Jr., MD Work Phone: [facility] 04-09-2022 15:29-0400 Diastolic blood pressure 72 mm[Hg] Ivette Mejia Jr., MD Work Phone: [facility] 04-09-2022 15:29-0400 Heart rate 74 /min Ivette Mejia Jr., MD Work Phone: [facility] 04-09-2022 15:29-0400 Respiratory rate 18 /min Ivette Mejia Jr., MD Work Phone: [facility] 04-09-2022 15:29-0400 SaO2% (BldA) [Mass fraction] 97 % Ivette Mejia Jr., MD Work Phone: [facility] 04-09-2022 15:29-0400 Systolic blood pressure 138 mm[Hg] Ivette Mejia Jr., MD Work Phone: [facility] 03-29-2022 10:58-0400 Heart rate 62 /min Elle Sanchez MD Work Phone: [facility] 03-29-2022 10:58-0400 Respiratory rate 15 /min Elle Sanchez MD Work Phone: [facility] 03-29-2022 10:58-0400 SaO2% (BldA) [Mass fraction] 98 % Elle Sanchez MD Work Phone: [facility] 02-28-2022 16:31-0400 Body weight 120.66 kg Ivette Grimes MD Work Phone: [facility] 02-28-2022 16:31-0400 Diastolic blood pressure 82 mm[Hg] Ivette Grimes MD Work Phone: [facility] 02-28-2022 16:31-0400 Heart rate 72 /min Ivette Grimes MD Work Phone: [facility] 02-28-2022 16:31-0400 Systolic blood pressure 142 mm[Hg] Ivette Grimes MD Work Phone: [facility] 11-21-2021 13:58-0500 Body height 170.[address] Ivette Grimes Work Phone: [facility] Work Phone: 09-09-2017 14:42-0500 BMI (Body Mass Index) 41.78 kg/m2 Amparo Hitchcock MD [facility] 09-09-2017 14:42-0500 Body Temperature 98.5 [degF] Amparo Hitchcock MD [facility] 09-09-2017 14:42-0500 Body Temperature 98.49 [degF] Amparo Hitchcock MD [facility] 09-09-2017 14:42-0500 BP Diastolic 78 mm[Hg] Amparo Hitchcock MD [facility] 09-09-2017 14:42-0500 BP Systolic 137 mm[Hg] Amparo Hitchcock MD [facility] 09-09-2017 14:42-0500 Height 172.72 cm Amparo Hitchcock MD [facility] 09-09-2017 14:42-0500 Pulse (Heart Rate) 67 /min Amparo Hitchcock MD [facility] 09-09-2017 14:42-0500 Respiratory Rate 16 /min Amparo Hitchcock MD [facility] 09-09-2017 14:42-0500 Weight 124.65 kg Amparo Hitchcock MD [facility] 07-22-2017 16:06-0400 BMI (Body Mass Index) 39.53 kg/m2 [facility] Work Phone: 07-22-2017 16:06-0400 Pulse (Heart Rate) 95 /min [facility] Work Phone: 07-22-2017 16:06-0400 Respiratory Rate 22 /min [facility] Work Phone: 07-22-2017 16:06-0400 Weight 117.94 kg Roya Dixon [facility] Work Phone: 05-10-2017 14:47-0400 Body Temperature 97.7 [degF] Roya Dixon [facility] Work Phone: 05-10-2017 14:47-0400 BP Diastolic 84 mm[Hg] Roya Dixon [facility] Work Phone: 05-10-2017 14:47-0400 BP Systolic 132 mm[Hg] Roya Dixon [facility] Work Phone: 05-10-2017 14:47-0400 Height 172.72 cm Roya Dixon [facility] Work Phone: Encounters Encounter Date Encounter Type Care Provider Facility Start: 07-05-2025 Emergency department patient visit [facility] Facility:[facility] Start: 06-29-2025 Encounter for other preprocedural examination Brett Quiroga [facility] Start: 06-25-2025 End: 06-25-[address] Brett Quiroga MD -[facility] Work Phone: Start: 06-25-2025 End: 06-25-[address] Ivette Grimes MD Work Phone: -[facility] Start: 06-23-2025 Non-patient / Non-visit Dr. Brett hernandez MD -[facility] Start: 06-23-2025 End: 06-23-2025 Admission to same day surgery center Dr. Brett Quiroga MD [facility] Start: 06-23-2025 End: 06-23-[address] Ivette Grimes MD Work Phone: [facility] Start: 06-17-2025 End: 06-17-[address] Bibiana Rehman DC -[facility] Work Phone: Start: 06-17-2025 End: 06-17-[address] Ivette Grimes MD Work Phone: [facility] Start: 06-16-2025 End: 06-16-2025 Refill Ivette Grimes MD Work Phone: [facility] Comment on above: Refill Request Start: 06-10-2025 ambulatory [facility] Facility :[facility] Start: 06-10-2025 Non-patient / Non-visit [facility] Work Phone: Start: 06-09-2025 End: 06-18-2025 Telephone encounter Ivette Grimes MD Work Phone: [facility] Comment on above: Results Start: 06-09-2025 End: 06-09-[address] Ivette Grimes MD Work Phone: -Laboratory Start: 06-09-2025 End: 06-09-[address] Ivette Grimes MD -Laboratory Work Phone: Start: 06-09-2025 End: 06-09-2025 ambulatory Ivette Grimes Facility:[facility] Start: 06-07-2025 End: 06-07-2025 Patient encounter procedure Ivette Grimes MD Work Phone: [facility] Comment on above: Well adult exam [...] encounter status Ivette Grimes MD Work Phone: [facility] Start: 06-07-2025 End: 06-07-2025 ambulatory IVETTE GRIMES Facility:[facility] Start: 06-07-2025 Encounter for genera l adult medical examination without abnormal findings IVETTE GRIMES [facility] Start: 06-05-2025 Registered [facility] -Laboratory Work Phone: Start: 06-05-2025 ambulatory [facility] Facility:[facility] Start: 06-01-2025 End: 06-01-[address] Bibiana Rehman DC -[facility] Work Phone: Start: 06-01-2025 End: 06-01-[address] Ivette Grimes MD Work Phone: -[facility] Start: 05-11-2025 ambulatory [facility] Facility:[facility] Start: 05-11-[address] Ivette barry MD -Physical Therapy Work Phone: Start: 05-06-2025 End: 05-06-[address] Brett Quiroga MD -[facility] Work Phone: Start: 05-06-2025 End: 05-06-[address] Ivette Grimes MD Work Phone: [facility] Start: 05-05-[address] Ivette barry MD -Physical Therapy Work Phone: Start: 04-21-2025 End: 04-21-[address] Bibiana Rehman DC -[facility] Work Phone: Start: 04-21-2025 End: 04-21-[address] Ivette Grimes MD Work Phone: [facility] Work Phone: Start: 04-20-[address] Ivette barry MD -Physical Therapy Work Phone: Start: 04-17-2025 End: 04-17-[address] Ivette Grimes MD Work Phone: [facility] Work Phone: Start: 04-17-2025 End: 04-17-[address] Brett Quiroga MD -MRI - [facility] Work Phone: Start: 04-17-2025 End: 04-17-2025 ambulatory Brett Quiroga Facility:[facility] Start: 04-12-2025 End: 04-12-2025 ambulatory Ivette Grimes MD Work Phone: [facility] Comment on above: Muscle relaxer Start: 04-07-2025 End: 04-07-2025 Telephone encounter Ivette Grimes MD Work Phone: [facility] Comment on above: Rx Refills Start: 04-05-2025 End: 04-05-[address] Bibiana Rehman DC -[facility] Work Phone: Start: 04-05-2025 End: 04-05-[address] Ivette Grimes MD Work Phone: [facility] Work Phone: Start: 04-01-2025 End: 04-01-2025 Telephone encounter Amanda IRENE-C Work Phone: Neurology Comment on above: Botox Approved Start: 03-22-2025 End: 03-22-[address] Brett Quiroga MD -[facility] Work Phone: Start: 03-22-2025 End: 03-22-[address] Ivette Grimes MD Work Phone: [facility] Work Phone: Start: 03-19-2025 End: 03-19-2025 Telephone encounter Amanda Arteaga PA-C Work Phone: Neurology Comment on above: Botox Referral Start: 03-11-2025 End: 03-11-[address] Ivette Grimes MD Work Phone: [facility] Work Phone: Start: 03-11-2025 End: 03-11-[address] Brett Quiroga MD -Radiology, [facility] Work Phone: Start: 03-11-2025 End: 03-11-2025 ambulatory [facility] Facility:[facility] Start: 03-09-2025 End: 03-09-[address] Bibiana Rehman DC -[facility] Work Phone: Start: 03-09-2025 End: 03-09-2025 [...] patient Ivette Grimes MD Work Phone: [facility] Start: 03-02-2025 End: 03-02-2025 ambulatory Ivette Grimes MD Work Phone: [facility] Comment on above: Intractable chronic migraine without aura and without status migrainosus (Primary Dx); Chronic left shoulder pain Start: 02-16-2025 ambulatory Jesenia Mercado [facility] Fac ility:[facility] Start: 02-04-2025 End: 02-04-[address] Bibiana Rehman DC -[facility] Work Phone: Start: 02-04-2025 End: 02-04-2025 ambulatory Bibiana Rehman Facility:[facility] Start: 01-28-2025 End: 01-28-2025 Chart abstracting Ivette Grimes MD Work Phone: [facility] [place] Start: 01-28-2025 End: 03-30-2025 Follow-up encounter [facility] Start: 01-28-2025 End: 02-08-2025 Telephone encounter Ivette Grimes MD Work Phone: [facility] Comment on above: PA new dose of ozemp ic Results Start: 01-28-2025 End: 01-28-[address] Ivette Grimes MD Work Phone: [facility] Work Phone: Start: 01-28-2025 End: 01-28-[address] Ivette Grimes MD -Laboratory Work Phone: Start: 01-28-2025 End: 01-28-2025 ambulatory Ivette Sydney Facility:[facility] Start: 01-22-2025 End: 01-22-2025 ambulatory IVETET SYDNEY Facility:[facility] Start: 01-22-2025 End: 01-22-2025 Patient encounter procedure [...] Telephone encounter Jenni Martínez APRN.CNP Work Phone: [facility] Comment on above: Results (Labs/Chest xray ) Start: 12-11-2024 End: 12-11-2024 Telephone encounter Ivette Grimes MD Work Phone: [facility] Comment on above: Orders Start: 12-11-2024 End: 12-11-2024 Patient encounter procedure Jenni Martínez NP-C -Radiology, [facility] Work Phone: Start: 12-11-2024 End: 12-11-2024 Office outpatient visit 25 minutes Jenni [facility] IR[employer]ER [employer].EBD TEACHER Work Phone: [facility] Comment on above: Sinobronchitis (Prim ziyad Dx); Hypokalemia Start: 12-11-2024 End: 12-11-2024 ambulatory [facility] Facility:[facility] Start: 12-11-2024 End: 12-11-2024 ambulatory [facility] Facility:[facility] Start: 11-25-2024 End: 11-25-2024 Refill Ivette Grimes MD Work Phone: [facility] Comment on above: Refill Request Start: 11-23-2024 End: 11-23-2024 Refill Ivette Grimes MD Work Phone: [facility] Comment on above: Refill Request Start: 11-17-2024 End: 12-18-2024 ambulatory Ivette Grimes MD Work Phone: [facility] Start: 11-11-2024 End: 11-11-2024 Emergency department patient visit Dr. Buddy aHll DO -Emergency Department Work Phone: Start: 10-26-2024 [...] 10-19-[address] Bibiana Rehman [place] [facility] Work Phone: Start: 10-19-2024 End: 10-19-2024 ambulatory Bibiana Rehman Facility:[facility] Start: 10-16-2024 End: 10-16-2024 Emergency department patient visit Dr. Sam Pearl MD -Emergency Department Work Phone: Start: 10-07-2024 ambulatory Bibiana Rehman [facility] Start: 09-24-2024 End: 09-24-2024 ambulatory Ivette Grimes MD Work Phone: [facility] Comment on above: Dysuria (Primary Dx) ; Type 2 diabetes mellitus with microalbuminuria, with long-term current use of insulin (HCC); Primary insomnia Start: 09-24-2024 End: 09-24-2024 Telemedicine consultation with patient Ivette Grimes MD Work Phone: [facility] Start: 09-09-2024 End: 09-09-2024 ambulatory Bibiana Rehman Facility:[facility] Start: 09-03-2024 End: 09-03-2024 ambulatory IVETTE GRIMES Facility:[facility] Start: 09-03-2024 End: 09-03-2024 Patient encounter procedure [...] Ivette Grimes MD Work Phone: [facility] [place] Comment on above: Insurance Authorizat ion (Ozempic ) Start: 08-05-2024 End: 08-05-2024 ambulatory IVETTE GRIMES Facility:[facility] Start: 08-05-2024 End: 08-05-2024 Patient encounter procedure [...] encounter status Ivette Grimes MD Work Phone: [facility] Start: 07-30-2024 End: 07-30-2024 ambulatory Bibiana [facility] Facility:[facility] Start: 07-24-2024 End: 07-27-2024 Refill Ivette Grimes MD Work Phone: Psychiatry Comment on above: Refill Request Start: 07-22-2024 End: 07-22-2024 ambulatory Ivette Grimes Facility:[facility] Start: 07-21-2024 End: 07-21-2024 Telephone encounter Ivette Grimes MD Work Phone: [facility] [place] Comment on above: Orders Start: 07-16-2024 End: 07-16-2024 ambulatory [facility] Facility:[facility] Start: 07-09-2024 End: 07-10-2024 Telephone [...] Ivette Grimes MD Work Phone: [facility] [place] Start: 07-03-2024 End: 07-03-2024 Patient encounter procedure Ivette Grimes MD Work Phone: [facility] [place] Comment on above: Bronchitis (Primary Dx); Type 2 diabetes mellitus with microalbuminuria, with long-term current use of insulin (HCC); Wheezing Start: 07-03-2024 End: 07-03-2024 ambulatory IVETTE GRIMES Facility:[facility] Start: 06-27-2024 End: 06-29-2024 Refill Ivette Grimes MD Work Phone: [facility] [place] Comment on above: Refill Request Start: 06-11-2024 [...] Ivette Grimes MD Work Phone: [facility] [place] Comment on above: Left sided sciatica (Primary Dx); Screening for depression Start: 06-03-2024 End: 06-03-2024 Telemedicine consultation with patient Ivette Grimes MD Work Phone: [facility] [place] Start: 05-12-2024 Refill Ivette Grimes MD Work Phone: [facility] [place] Comment on above: Refill Request Start: 05-01-2024 Telephone encounter Ivette Grimes MD Work Phone: [facility] Comment on above: medication not on cu rrent medication list Start: 04-20-2024 Refill Ivette Grimes MD Work Phone: [facility] Comment on above: Refill Request Start: 04-19-2024 Refill Ivette Grimes MD Work Phone: [facility] Comment on above: Refill Request Start: 04-14-2024 Refill Grace morales [employer]ER BLASTING.EBD TEACHER Work Phone: Psychiatry Comment on above: Refill Request Insurance Authorizat ion (Trulicity ) Start: 04-06-2024 Telephone encounter Fatuma Rico IRENE-C Work Phone: Neurology Comment on above: Insurance Authorizat ion (Botox ) Start: 04-02-2024 End: 04-02-2024 Patient encounter procedure Fatuma Robertscatherine IRENE-C Work Phone: Neurology Comment on above: Intractable chronic migraine without aura and without status migrainosus (Primary Dx) Start: 02-28-2024 Refill Stephanie Paz IR[employer] MINER BLASTING.EBD TEACHER Work Phone: [facility] Comment on above: Refill Request Start: 02-04-2024 End: 02-04-2024 Emergency department patient visit Dr. Ivette Grimes [facility] Start: 01-22-2024 Refill Ivette Grimes MD Work Phone: [facility] Comment on above: Refill Request Start: 01-01-2024 Refill Grace Child u IR[employer]ER [employer]ING.EBD TEACHER Work Phone: Psychiatry Comment on above: Refill Request Start: 12-27-2023 Telephone encounter Fatuma Rico IRENE-C Work Phone: Neurology Comment on above: Insurance Authorizat ion Start: 12-26-2023 End: 12-26-2023 Patient encounter procedure Fatuma Shakeel IRENE-C Work Phone: Neurology Comment on above: Intractable chronic migraine without aura and without status migrainosus (Primary Dx) Start: 12-10-2023 End: 12-10-[address] Ivette Grimes Work Phone: [facility]-Pulmonary Medicine [facility] Work Phone: Start: 12-09-2023 End: 12-09-2023 Patient encounter procedure Ivette Grimes MD Work Phone: [facility] Comment on above: Essential (primary) hypertension (Primary Dx); LETITIA (obstructive sleep apnea); Fatty liver; Vertigo; Anxiety Start: 12-09-2023 Telephone encounter Ivette Grimes MD Work Phone: [facility] Comment on above: Orders Start: 12-06-2023 End: 12-06-[address] Ivette Grimes Work Phone: [facility] Work Phone: Start: 12-06-2023 End: 12-06-[address] Ivette Grimes Work Phone: [facility]-Laboratory, OP Pavilion Start: 12-05-2023 ambulatory Ivette Grimes MD Work Phone: [facility] Comment on above: Labs Start: 10-27-2023 End: 10-27-2023 Emergency department patient visit Self Referred [facility]-Emergency Department Work Phone: Start: 10-14-2023 Refill Ivette Grimes MD Work Phone: [facility] Comment on above: Refill Request Start: 09-23-2023 Refill Adriana Patel Work Phone: Psychiatry Comment on above: Refill Request Start: 09-12-2023 End: 09-12-2023 Patient encounter procedure Self Referred [facility] Work Phone: Start: 09-09-2023 Refill Ivette Grimes MD Work Phone: [facility] Comment on above: Refill Request Start: 08-21-2023 E-mail encounter fro m caregiver [facility] Start: 08-21-2023 Patient encounter procedure [facility] Comment on above: Botox Appointment Start: 08-20-2023 Telephone encounter Ivette Grimes MD Work Phone: [facility] [place] Comment on above: Forms ([facility] preventat ashish care ) Start: 08-15-2023 End: 08-15-2023 [facility] encounter [facility] Work [facility]: Start: 08-07-2023 Non-patient / Non-visit Self Referre d [facility] Work Phone: Start: 08-06-2023 Non-patient / Non-visit Self Referre d [facility] Work Phone: Start: 08-06-2023 Non-patient / Non-visit Self Referre d [facility] Start: 08-05-2023 End: 08-07-2023 Evaluation and management of inpatient Dr. Ivette Grimes Work Phone: [facility]-Progressive Care Unit Work Phone: Start: 08-05-[address] Reji Grimes Work Phone: [facility] Work Phone: Start: 08-01-2023 End: 08-01-[address] Ivette Grimes [facility] Work Phone: Start: 08-01-2023 End: 08-01-2023 ambulatory Self Referred [facility] Work Phone: Start: 08-01-2023 End: 08-01-2023 Discharged Recurring Self Referred [facility]-Physical Therapy Work Phone: Start: 08-01-[address] Gerald Grimes Work Phone: [facility]-Physical Therapy Work Phone: Start: 07-18-2023 End: 07-18-[address] Ivette Grimes Work Phone: [facility] Work Phone: Start: 07-18-2023 End: 07-18-[address] Ivette Grimes Work Phone: [facility] Work Phone: Start: 07-18-2023 End: 07-18-[address] Ivette Grimes Work Phone: [facility]-Physical Therapy Work Phone: Start: 07-05-2023 Refill Ivette Grimes MD Work Phone: [facility] Comment on above: Refill Request Start: 06-20-2023 End: 06-20-[address] Ivette Grimes Work Phone: [facility] Work Phone: Start: 06-19-2023 End: [...] encounter procedure Dr. Ivette Grimes Work Phone: [facility] Work Phone: Start: 06-06-2023 End: [...] encounter procedure Isiah Funes APRN.CNP Work Phone: [facility] Comment on above: Foot pain, right (Pr imary Dx) Start: 05-29-2023 Telephone encounter Nicole vaca PA-C Work Phone: Urgent Care Comment on above: Pt requesting Boot Start: 05-28-2023 End: 05-28-2023 Subsequent hospital visit by physician Xr [facility] Work Phone: Radiology Comment on above: Pain of right heel [ M79.671] Start: 05-20-2023 End: 05-20-2023 Emergency department patient visit Dr. Ivette Grimes Work Phone: [facility]-Emergency Department Work Phone: Start: 05-17-2023 End: 05-17-2023 Patient encounter procedure Fatuma Beckford PA-C Work Phone: Neurology Comment on above: Intractable chronic migraine without aura and without status migrainosus (Primary Dx); Post concussive syndrome Start: 05-09-[address] Gerald Grimes Work Phone: [facility]-Physical Therapy Work Phone: Start: 05-07-2023 Refill Ivette Grimes MD Work Phone: [facility] [place] Comment on above: Refill Request Start: 04-30-2023 End: 04-30-[address] Ivette Grimes Work Phone: [facility] Work Phone: Start: 04-16-2023 End: 04-16-[address] Ivette Grimes Work Phone: [facility] Work Phone: Start: 04-04-2023 Refill Ivette Grimes MD Work Phone: [facility] Comment on above: Refill Request Start: 04-02-2023 End: 04-02-[address] Ivette Grmies Work Phone: [facility] Work Phone: Start: 04-02-2023 End: 04-02-[address] Ivette Grimes Work Phone: [facility] Work Phone: Start: 04-02-2023 End: 04-02-[address] Ivette Grimes Work Phone: [facility]-Pulmonary Services/Neurology Work Phone: Start: 03-20-2023 Telephone encounter Fatuma perales PA-C Work Phone: Neurology Comment on above: Medication Authoriza tion (Botox renewal ) Start: 03-19-2023 End: 03-19-[address] Ivette Grimes Work Phone: [facility] Work Phone: Start: 03-12-2023 ambulatory Fatuma vásquez PA-C Work Phone: Neurology Comment on above: EEG Start: 03-09-2023 ambulatory Karen lópez IR[employer]ER [employer]ING.EBD TEACHER Work Phone: Neurology Comment on above: Botox Start: 03-05-[address] Gerald Grimes Work Phone: [facility]-Physical Therapy Start: 03-05-2023 End: 03-05-2023 Patient encounter [...] encounter procedure Dr. Ivette Grimes Work Phone: [facility]-Laboratory, OP Pavilion Start: 03-01-2023 Telephone encounter Ivette Mejia MD Work Phone: Neurology Comment on above: Appointment Start: 03-01-2023 End: 03-01-2023 Patient encounter procedure Ivette Mejia MD Work Phone: Neurology Comment on above: Post concussion synd roberta (Primary Dx); LETITIA (obstructive sleep apnea) Start: 02-28-2023 End: 02-28-2023 Patient encounter procedure Ivette Grimes MD Work Phone: [facility] Comment on above: Soft tissue mass (Pr imary Dx); Post concussive syndrome; Essential (primary) hypertension; Type 2 diabetes mellitus with microalbuminuria, with long-term current use of insulin (HCC); Headache, unspecified headache type; Myalgia Start: 02-28-2023 End: 02-28-[address] Ivette Grimes Work Phone: [facility] Start: 02-28-2023 End: 02-28-2023 Subsequent hospital visit by physician [facility] (I-Stat/1.5t) Work Phone: Radiology Comment on above: Post concussion synd roberta [F07.81] Start: 02-27-2023 Telephone encounter Ivette Grimes MD Work Phone: [facility] [place] Comment on above: Medication Request Start: 02-22-2023 Refill Ivette Grimes MD Work Phone: [facility] Comment on above: Refill Request Start: 02-15-2023 End: 02-15-2023 [facility] Grace Jacob Coronel APRN.EBD TEACHER Work Phone: Psychiatry Comment on above: VAHE (generalized anx iety disorder) (Primary Dx); Recurrent major depressive disorder, in full remission (HCC) Start: 02-14-2023 End: 02-14-[address] Ivette Grimes Work Phone: [facility] Start: 02-14-[address] Gerald Grimes Work Phone: [facility]-Physical Therapy Start: 02-11-2023 Refill Ivette Grimes MD Work Phone: [facility] Comment on above: Refill Request Start: 02-09-2023 Telephone encounter Ivette Grimes MD Work Phone: [facility] Comment on above: Results Start: 02-08-2023 End: 02-08-[address] Ivette Grimes Work Phone: [facility] Work Phone: Start: 02-08-2023 End: 02-08-[address] Ivette Grimes Work Phone: [facility] Start: 01-31-2023 Telephone encounter Ivette Grimes MD Work Phone: [facility] Comment on above: Orders Start: 01-31-2023 End: 01-31-[address] Ivette Grimes Work Phone: [facility] Start: 01-31-2023 End: 01-31-2023 Patient encounter procedure Ivette Grimes MD Work Phone: [facility] Comment on above: Post concussive synd roberta (Primary Dx); Headache, unspecified headache type; Injury of neck, subsequent encounter Start: 01-24-2023 End: 01-24-2023 ambulatory ELLE SANCHEZ Facility:[facility] Start: 01-24-2023 End: 01-24-2023 Patient encounter procedure Elle Sanchez MD Work Phone: [facility] Comment on above: [...] 01-17-[address] Ivette Grimes Work Phone: [facility] Work Phone: Start: 01-17-2023 End: 01-17-[address] Ivette Grimes Work Phone: [facility]-Physical Therapy Start: 01-17-2023 End: 01-17-2023 Patient encounter procedure Ivette Grimes MD Work Phone: [facility] Comment on above: Post concussive synd roberta (Primary Dx); Headache, unspecified headache type; Injury of neck, subsequent encounter Start: 01-17-2023 End: 01-17-[address] Ivette Grimes Work Phone: [facility] Start: 01-09-2023 Refill Ivette Grimes MD Work Phone: [facility] Comment on above: Refill Request Start: 01-08-2023 Telephone encounter Ivette Grimes MD Work Phone: [facility] Comment on above: Insurance Authorizat ion (Trulicity ) Start: 01-04-2023 End: 01-04-2023 Patient encounter procedure Ivette Grimes MD Work Phone: [facility] Comment on above: Post concussive synd roberta (Primary Dx); Headache, unspecified headache type Start: 01-03-2023 End: 01-03-[address] Ivette Grimes Work Phone: [facility] Start: 01-02-2023 End: 01-02-2023 ambulatory [facility] Facility:[facility] Start: 01-01-2023 Telephone encounter Ivette Grimes MD Work Phone: [facility] [place] Comment on above: Patient Update Start: 12-28-2022 End: 12-28-[address] Ivette Grimes Work Phone: [facility] Start: 12-26-2022 End: 12-26-2022 Patient [...] Dr. Ivette Grimes Work Phone: [facility] Start: 12-14-2022 End: 12-14-2022 Patient [...] encounter procedure Dr. Ivette Grimes Work Phone: [facility] Start: 12-06-2022 End: 12-06-[address] Ivette Grimes Work Phone: [facility] Start: 12-04-2022 Telephone encounter Ivette Grimes MD Work Phone: [facility] Comment on above: Aprylck requesting records Start: 12-03-2022 End: 12-03-2022 Emergency department patient visit Dr. Ivette Grimes [facility] Start: 12-03-2022 Telephone encounter [...] with patient [facility] MD [facility] Start: 11-29-2022 Telephone encounter Elle Sanchez MD Work Phone: [facility] Comment on above: Patient Question (Lo di appointment on 12/05/22) Start: 11-27-2022 End: 11-27-2022 Emergency department patient visit Dr. Ivette Grimes [facility] Start: 11-27-2022 End: 11-27-[address] Ivette Grimes Work Phone: [facility] Comment on above: Worst headache of li fe (Primary Dx); Concussion with loss of consciousness, initial encounter Start: 11-27-[address] Gerald Grimes [facility] Start: 11-24-2022 End: 11-24-2022 Emergency department patient visit Dr. Ivette Grimes [facility] Start: 11-23-2022 Refill Ivette Grimes MD Work Phone: [facility] Comment on above: Refill Request Start: 11-22-[address] Gerald Grimes Work Phone: [facility] Start: 11-22-2022 End: 11-22-[address] Ivette Grimes Work Phone: [facility] Start: 11-20-2022 Orders Only Elle Sanchez MD Work Phone: [facility] Comment on above: Chronic left shoulde r pain (Primary Dx); Adhesive capsulitis of left shoulder Start: 11-15-2022 Refill Ivette Grimes MD Work Phone: [facility] Comment on above: Refill Request Start: 11-08-2022 End: 11-08-2022 ambulatory ADELINA MASON Facility:[facility] Start: 11-08-2022 Telephone encounter Elle Sanchez MD Work Phone: [facility] Comment on above: Injections Start: 11-08-2022 End: 11-08-2022 Patient encounter procedure Adelina Mason IRON MINER BLASTING.EBD TEACHER Work Phone: [facility] Comment on above: Chronic left shoulde r pain (Primary Dx); Adhesive capsulitis of left shoulder; Neuropathic pain; Myofascial pain Start: 11-08-2022 End: 11-08-[address] Ivette Grimes Work Phone: [facility] Start: 10-23-2022 End: 10-23-[address] Ivette Grimes Work Phone: [facility] Start: 10-16-2022 End: 10-16-[address] Ivette Grimes Work Phone: [facility] Start: 10-16-[address] Gerald Grimes Work Phone: [facility]-Physical Therapy Start: 10-15-2022 End: 10-15-[address] Ivette Grimes Work Phone: [facility] Work Phone: Start: 10-15-2022 End: 10-15-[address] Ivette Grimes Work Phone: [facility]-Sleep Lab Start: 10-12-2022 End: 10-12-2022 [facility] Grace Coronel IRON MINER BLASTING.EBD TEACHER Work Phone: Psychiatry Comment on above: VAHE (generalized anx iety disorder) (Primary Dx); Major depressive disorder, recurrent episode, moderate (HCC) Start: 10-10-2022 ambulatory [facility] Comment on above: Botox Start: 10-10-2022 E-mail encounter fro m caregiver [facility] Provider [facility] Start: 10-06-2022 Refill Tara alcantar APRN.EBD TEACHER Work Phone: Neurology Comment on above: Refill Request Start: 10-05-2022 Refill Ivette Grimes MD Work Phone: [facility] Comment on above: Refill Request Start: 10-02-2022 Telephone encounter Adelina Dalton Krystle lazaro IR[employer] MINER BLASTING.EBD TEACHER Work Phone: [facility] Comment on above: Appointment; Patient Question Start: 10-02-2022 End: 10-02-[address] Ivette Grimes Work Phone: [facility] Start: 09-19-2022 Refill Ivette Grimes MD Work Phone: [facility] Comment on above: Refill Request Start: 09-13-2022 End: 09-13-[address] Ivette Grimes Work Phone: [facility] Start: 09-13-[address] Gerald Grimes Work Phone: [facility]-Physical Therapy Start: 09-12-2022 ambulatory Ivette Grimes MD Work Phone: [facility] Start: 09-12-2022 Chart abstracting Rivka Hartman COMM[employer]CIAL COLLECTIONS SPECIALIST Work Phone: Adult Psychology Comment on above: [...] encounter procedure Dr. Ivette Grimes Work Phone: [facility]-Laboratory, [facility] Pav[facility] Start: 09-04-2022 ambulatory Ivette Grimes [...] Registered Recurring Dr. Gerald Grimes Work Phone: [facility]-Physical Therapy Start: 09-03-2022 End: 09-03-2022 ambulatory Ivette Grimse MD Work Phone: [facility] Comment on above: Malaise (Primary Dx) Start: 09-03-2022 End: 09-03-2022 Telemedicine consultation with patient Ivette Grimes MD Work Phone: [facility] Start: 09-03-2022 E-mail encounter fro m caregiver [facility] Provider [facility] Start: 09-03-2022 Patient encounter procedure [facility] Comment on above: Botox Appointment Start: 08-30-2022 Non-patient / Non-visit Dr. Regina Grimes Work Phone: [facility] Start: 08-30-2022 End: 08-30-[address] Ivette Grimes Work Phone: [facility] Work Phone: Start: 08-30-2022 End: 08-30-[address] Ivette Grimes Work Phone: [facility] Start: 08-29-2022 End: 08-29-[address] Ivette Grimes Work Phone: [facility] Work Phone: Start: 08-29-2022 End: 08-29-[address] Ivette Grimes Work Phone: [facility]Laboratory, [facility] Start: 08-27-2022 ambulatory Ivette Grimes MD Work Phone: [facility] Comment on above: Quick question Start: 08-21-2022 Telephone encounter Karen renee IRON MINER BLASTING.EBD TEACHER Work Phone: Neurology Comment on above: Medication Authoriza tion (Botox Approved) Start: 08-21-2022 End: 08-21-[address] Ivette Grimes Work Phone: [facility] Start: 08-16-2022 End: 08-16-2022 Patient encounter procedure Dr. Ivette Grimes Work Phone: [facility] [facility] Start: 08-16-[address] Gerald Grimes Work Phone: [facility] Start: 08-10-2022 End: 08-10-[address] Ivette Grimes Work Phone: [facility] Work Phone: Start: 08-10-2022 End: 08-10-[address] Ivette Grimes Work Phone: [facility] Start: 08-08-2022 Chart abstracting Ivette Martínez MD Work Phone: [facility] [place] Start: 08-08-2022 Telephone encounter Adelina lazaro IRON MINER BLASTING.EBD TEACHER Work Phone: [facility] Comment on above: Patient Update Start: 08-08-2022 End: 08-08-[address] Ivette Grimes Work Phone: [facility] Work Phone: Start: 08-08-2022 End: 08-08-[address] Ivette Grimes Work Phone: [facility] Start: 08-07-[address] Gerald Grimes Work Phone: [facility] Start: 08-07-2022 End: 08-07-[address] Ivette Grimes Work Phone: [facility] Start: 08-06-2022 ambulatory Ivette Grimes MD Work Phone: [facility] Comment on above: Labs Start: 08-02-2022 ambulatory Karen lópez APRN.EBD TEACHER Work Phone: Neurology Comment on above: Migraines Start: 08-02-2022 End: 08-02-[address] Ivette Grimes Work Phone: [facility] Start: 08-02-2022 End: 08-02-2022 Patient [...] [facility] Comment on above: Net Ui Developer Start: 08-01-2022 Telephone encounter Karen renee APRN.EBD TEACHER Work Phone: Neurology Comment on above: Medication Authoriza tion (Botox referral) Start: 07-24-2022 End: 07-24-[address] Ivette Grimes Work Phone: [facility] Start: 07-24-2022 End: 07-24-[address] Ivette Grimes Work Phone: [facility] Work Phone: Start: 07-24-2022 End: 07-24-[address] Ivette Grimes Work Phone: [facility] Start: 07-23-2022 Refill Ivette Grimes MD Work Phone: [facility] Comment on above: Refill Request Start: 07-19-2022 Telephone encounter Elle Sanchez MD Work Phone: [facility] Comment on above: Patient Update (Inje ction questions ) Start: 07-19-2022 End: 07-19-2022 Patient encounter procedure Karen Ocasioaashish ROSEEBD TEACHER Work Phone: Neurology Comment on above: Intractable chronic migraine without aura and without status migrainosus (Primary Dx); Mixed migraine and muscle contraction headache Start: 07-19-2022 End: 07-19-2022 ambulatory ADELINANola ALBERTOYVES Facility:[facility] Start: 07-10-2022 Refill Krystle Barahona on PA-C Work Phone: [facility] Comment on above: Refill Request Start: 07-10-2022 End: 07-10-[address] Ivette Grimes Work Phone: [facility] Start: 07-03-2022 ambulatory Tara alcantar APRN.EBD TEACHER Work Phone: Neurology Comment on above: Medication Question Start: 06-28-2022 End: 06-28-[address] Ivette Grimes Work Phone: [facility] Start: 06-22-2022 Refill Ivette Grimes MD Work Phone: [facility] Comment on above: Refill Request Start: 06-07-2022 End: 06-07-2022 Patient encounter procedure Tara Gillette APRN.EBD TEACHER Work Phone: Neurology Comment on above: Intractable migraine without aura and without status migrainosus (Primary Dx); Medication overuse headache; LETITIA (obstructive sleep apnea); Class 3 severe obesity with body mass index (BMI) of 45.0 to 49.9 in adult, unspecified obesity type, unspecified whether serious comorbidity present (HCC) Start: 06-07-2022 Telephone encounter Tara Herndon APRN.EBD TEACHER Work Phone: Neurology Comment on above: Orders Start: 06-05-2022 ambulatory Ivette guzman MD Work Phone: Neurology Comment on above: Labs Start: 06-05-2022 E-mail encounter fro m caregiver Ivette Grimes MD Work Phone: [facility] Start: 06-05-[address] Luz Grimes Work Phone: [facility] Start: 06-04-2022 End: 06-04-[address] Ivette Grimes Work Phone: [facility] Start: 05-29-2022 Telephone encounter Tara Herndon IRON MINER BLASTING.EBD TEACHER Work Phone: Neurology Comment on above: Appointment Start: 05-29-2022 End: 05-29-[address] Ivette Grimes Work Phone: [facility] Start: 05-24-2022 End: 05-24-2022 ambulatory ADELINA MASON Facility:[facility] Start: 05-24-2022 End: 05-24-2022 Patient encounter procedure Adelina Mason IRON MINER BLASTING.EBD TEACHER Work Phone: [facility] Comment on above: Chronic left shoulde r pain (Primary Dx); Adhesive capsulitis of left shoulder; Primary osteoarthritis of left shoulder; Myofascial pain Start: 05-14-2022 End: 05-14-[address] Ivette Grimes Work Phone: [facility] Start: 05-11-2022 Telephone encounter Elle Sanchez MD Work Phone: [facility] Comment on above: Procedure Follow Up Start: 05-10-2022 End: 05-10-2022 ambulatory ELLE SANCHEZ Facility:[facility] Start: 05-10-2022 End: 05-10-2022 ambulatory Elle Sanchez MD Work Phone: [facility] Comment on above: Procedure Start: 05-10-2022 End: 05-10-2022 Patient encounter procedure Elle Sanchez MD Work Phone: [facility] Start: 05-08-2022 ambulatory Ivette Grimes MD Work Phone: [facility] [place] Start: 05-08-2022 Follow-up encounter Ivette Grimes MD Work Phone: [facility] Comment on above: Follow up from last appointment Start: 05-04-2022 End: 05-04-[address] 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 Ivette Grimes Work Phone: [facility] Start: 04-19-2022 ambulatory Ivette Grimes MD Work Phone: [facility] Comment on above: Lyrica Start: 04-17-2022 End: 04-17-[address] Ivette Grimes Work Phone: [facility] Start: 04-16-2022 Refill Ivette Grimes [...] obesity type, unspecified whether serious comorbidity present ([facility]) Start: 04-05-2022 Refill Ivette Grimes MD Work Phone: [facility] Comment on above: Refill Request Start: 04-03-2022 End: 04-03-[address] Ivette Grimes Work Phone: [facility] Start: 03-30-2022 Refill Ivette Grimes MD Work Phone: [facility] Comment on above: Refill Request Start: 03-29-2022 Telephone encounter Elle Sanchez MD Work Phone: [facility] Comment on above: Injections Start: 03-29-2022 End: 03-29-2022 ambulatory ELLE SANCHEZ Facility:[facility] Start: 03-29-2022 End: 03-29-2022 Patient encounter procedure Elle Sanchez MD Work Phone: [facility] Comment on above: Myofascial pain (Carolyn alyssa Dx); Chronic left shoulder pain; Neuropathic pain; Adhesive capsulitis of left shoulder; Primary osteoarthritis of left shoulder Start: 03-16-2022 Refill Ivette Grimes MD Work Phone: [facility] Comment on above: Refill Request Start: 03-03-2022 Refill Krystle kessler PA-C Work Phone: [facility] Comment on above: Refill Request Start: 02-28-2022 End: 02-28-2022 Patient encounter procedure Ivette Grimes MD Work Phone: [facility] Comment on above: Upper back pain (Carolyn alyssa Dx); Acute midline low back pain without sciatica; Type 2 diabetes mellitus with microalbuminuria, with long-term current use of insulin ([facility]); LETITIA (obstructive sleep apnea); Lumbar disc disorder; Elevated BP without diagnosis of hypertension Start: 02-27-2022 ambulatory Ivette Grimes MD Work Phone: [facility] [place] Comment on above: ER Start: 02-23-2022 Refill Ivette Grimes MD Work Phone: [facility] [place] Comment on above: Refill Request Start: 02-19-2022 E-mail encounter fro m caregiver Ivette Mejia Jr., MD Work Phone: [facility] [place] Start: 02-19-2022 Patient encounter procedure Ivette Mejia MD Work Phone: Neurology Comment on above: Request an Appointme nt Start: 02-08-2022 Chart abstracting Ivette Martínez MD Work Phone: [facility] [place] Start: 02-07-2022 ambulatory Ivette Grimes MD Work Phone: [facility] [place] Comment on above: Lab work Start: 02-07-2022 E-mail encounter fro m caregiver Ivette Grimes MD Work Phone: [facility] [place] Start: 02-07-2022 Telephone encounter Ivette Grimes MD Work Phone: [facility] [place] Comment on above: Results Start: 02-07-2022 End: 02-07-[address] Ivette Grimes Work Phone: [facility] Start: 02-06-[address] Gerald Grimes Work Phone: [facility] Start: 02-06-2022 End: 02-06-[address] Ivette Grimes Work Phone: [facility] Start: 02-05-2022 ambulatory Ivette Grimes MD Work Phone: [facility] [place] Comment on above: Lab work Start: 01-29-2022 Telephone encounter Elle Sanchez MD Work Phone: [facility] Comment on above: New Patient Start: 01-23-2022 End: 01-23-[address] Ivette Grimes Work Phone: [facility] Start: 01-09-2022 End: 01-09-[address] Ivette Grimes Work Phone: [facility] Start: 01-09-2022 Non-patient / Non-visit Dr. Regina Grimes Work Phone: [facility] Start: 01-09-2022 End: 01-09-[address] Ivette Grimes Work Phone: [facility] Start: 01-01-2022 End: 01-01-[address] Ivette Grimes Work Phone: [facility] Start: 12-26-2021 End: 12-26-[address] Ivette Grimes Work Phone: [facility] Start: 11-29-2021 End: 11-29-[address] Ivette Grimes Work Phone: [facility] Start: 11-23-2021 End: 11-23-[address] Ivette Grimes Work Phone: [facility] Start: 11-21-2021 End: 11-21-[address] Ivette Grimes Work Phone: [facility] Start: 11-09-2021 End: 11-09-[address] Ivette Grimes Work Phone: [facility] Start: 10-24-2021 End: 10-24-[address] Ivette Grimes Work Phone: [facility] Start: 12-06-2012 End: 02-22-2014 Patient encounter status Stephanie Paz APRN.CNP Work Phone: [facility] Start: 01-23-2010 End: 02-22-2014 Patient encounter status Stephanie Paz IRON MINER BLASTING.EBD TEACHER Work Phone: [facility] Procedures Date Procedure Procedure Detail Performing Clinician Start: 06-23-2025 Procedure on shoulder joint Dr. Ivette Grimes MD Work Phone: Start: 06-09-2025 Hemoglobin A1c/Hemoglobin.total in Blood [facility] Provider Start: 06-09-[address] (FOR REMOTE [facility] USE) [facility] Provider Start: 06-05-2025 Serum inorganic [...] Appl modality 1/> areas traction mechanical Bibiana Loev Dossi DC Work Phone: Start: 09-05-2017 End: [...] Visit Annual PCP Team Chronic Disease Visit [facility] Start: 03-02-2026 Annual PCP Team Chronic Disease Visit Annual PCP Team Chronic Disease Visit [facility] Start: 02-04-2026 Glaucoma screening Dilated Retinal Exam [facility] Start: 01-22-2026 Annual PCP Team Chronic Disease Visit Annual PCP Team Chronic Disease Visit [facility] Start: 01-22-2026 BP Controlled (<130/80) BP Controlled (<130/80) [facility] Start: 01-22-2026 Depression Screening Depression Screening [facility] Start: 12-11-2025 Annual PCP Team Chronic Disease Visit Annual PCP Team Chronic Disease Visit [facility] Start: 12-10-2025 Hemoglobin A1c measurement HbA1C [facility] michaela Start: 10-19-2025 Annual PCP Team Chronic Disease Visit Annual PCP Team Chronic Disease Visit [facility] Start: 09-24-2025 Annual PCP Team Chronic Disease Visit Annual PCP Team Chronic Disease Visit [facility] Start: 08-05-2025 Annual PCP Team Chronic Disease Visit Annual PCP Team Chronic Disease Visit [facility] Start: 08-05-2025 BP Controlled (<130/80) BP Controlled (<130/80) [facility] Start: 08-05-2025 Covid-19 Vaccine () Covid-19 Vaccine () [facility] Comment on above: Postponed from 07/05/2024 (Declined at t his time) Start: 08-05-2025 Diabetic foot examination Diabetic Foot Exam [facility] Start: 08-05-2025 Pneumococcal vaccination Pneumococcal Vaccine (2 of 2 - PCV) [facility] Comment on above: Postponed from 07/28/2020 (Declined at t his time) Start: 08-05-2025 Urine microalbumin profile DTaP,Tdap,Td Vaccine (2 - Td or Tdap) [facility] Comment on above: Postponed from 06/01/2023 (Declined at t his time) Start: 08-04-2025 End: 08-04-2025 Patient encounter procedure 08/04/2025 4:30 PM EDT Office Visit Neurology [address] [place], [place] [id number] Fatuma Beckford PA-C [address] [place], [place] [id number] botox Neurology Comment on above: botox Start: 08-03-2025 End: 08-03-2025 Patient encounter procedure 08/03/2025 2:20 PM EDT Office Visit OB/Gynecology [address] [place], [place] [id number] Galina Camacho MD [address] [place], [place] [phone] annual with pap OB/Gynecology Comment on above: annual with pap Start: 07-31-2025 Hemoglobin A1c measurement HbA1C [facility] Start: 07-08-2025 End: 10-07-2025 Microalbumin/Creatinine [Mass Ratio] in Urine ALBUMIN/CREATININE RATIO, URINE Lab Routine Type 2 diabetes mellitus with microalbuminuria, with long-term current use of insulin (HCC) Expected: 07/08/2025, Expires: 10/07/2025 [facility] Comment on above: Expected: 07/08/2025, Expires: Start: 07-05-2025 Influenza vaccination Influenza Vaccine (#1) [facility] Start: 07-05-2025 End: 10-04-2025 Urinalysis complete panel - Urine URINALYSIS, WITH MICROSCOPIC Lab Routine Flank pain Proteinuria, unspecified type Expected: 07/05/2025, Expires: 10/04/2025 [facility] Comment on above: Expected: 07/05/2025, Expires: Start: 07-04-2025 Hepatitis B screening Urine Albumin:Creatinine Ratio [facility] Start: 07-04-2025 Hepatitis B surface antibody level LDL Cholesterol [facility] Start: 07-03-2025 Annual PCP Team Chronic Disease Visit Annual PCP Team Chronic Disease Visit [facility] Start: 06-23-2025 Patient discharge [facility] Start: 06-23-2025 Application of ice collar, cap or bag [facility] Start: 06-23-2025 Assessment of risk of venous thromboembolism [facility] Start: 06-23-2025 Catheterization of vein [facility] Start: 06-23-2025 Continuous positive airway pressure ventilation treatment [facility] Start: 06-23-2025 Following clinical pathway protocol [facility] Start: 06-23-2025 Incentive spirometry [facility] Start: 06-23-2025 Introduction of urinary catheter [facility] Start: 06-23-2025 Vital signs measurements [facility] Start: 06-23-2025 [facility] Start: 06-07-2025 End: 09-06-2025 Cholesterol in LDL [Mass/volume] in Serum or Plasma LDL CHOLESTEROL DIR Lab Routine Type 2 diabetes mellitus with microalbuminuria, with long-term current use of insulin (HCC) Essential (primary) hypertension Expected: 06/07/2025, Expires: 09/06/2025 [facility] Comment on above: Expected: 06/07/2025, Expires: Start: 06-07-2025 End: 09-06-2025 Hemoglobin A1c in Blood HEMOGLOBIN A1C Lab Routine Type 2 diabetes mellitus with microalbuminuria, with long-term current use of insulin (HCC) Expected: 06/07/2025, Expires: 09/06/2025 [facility] Work Phone: Comment on above: Expected: 06/07/2025, Expires: Start: 06-03-2025 Annual PCP Team Chronic Disease Visit Annual PCP Team Chronic Disease Visit [facility] Start: 05-03-2025 Influenza vaccination Influenza Vaccine (#1) [facility] Comment on above: Postponed from 07/05/2024 (Declined at t his time) Start: 04-21-2025 End: 04-21-2025 Patient encounter procedure 04/21/2025 2:00 PM EDT Office Visit Neurology [address] [place] [address] Kristen Enriquez APRN.EBD TEACHER [address] [place] [address] botox Neurology Comment on above: botox Start: 03-09-2025 End: 03-09-2025 Patient encounter procedure 03/09/2025 7:25 AM EDT [facility] Neurology [address] [facility] [address] [place] [phone] Amanda Arteaga PA-C [address] [facility] [address] [place] [address] consult botox injection for headache Neurology Comment on above: consult botox injection for headache Start: 01-22-2025 End: 04-23-2025 Basic metabolic 2000 panel - Serum or Plasma BASIC METABOLIC PANEL Lab Routine Essential (primary) hypertension Expected: 01/22/2025, Expires: 04/23/2025 [facility] Comment on above: Expected: 01/22/2025, Expires: Start: 01-22-2025 End: 04-23-2025 Hemoglobin A1c in Blood HEMOGLOBIN A1C Lab Routine Type 2 diabetes mellitus with microalbuminuria, with long-term current use of insulin (HCC) Expected: 01/22/2025, Expires: 04/23/2025 [facility] Work Phone: Comment on above: Expected: 01/22/2025, Expires: 5 Start: 01-01-2025 [facility]oglobin [facility]c [facility] Start: 12-26-2024 BP Controlled (<130/80) BP Controlled (<130/80) [facility] Start: 12-25-2024 End: 12-25-2024 Patient encounter procedure 12/25/2024 10:15 AM EST Office Visit OB/Gynecology [address] [place], [place] [phone] Karol Mancera APRN.EBD TEACHER [address] [place] [address] annual OB/Gynecology Comment on above: annual Start: 12-17-2024 End: 12-17-2024 ambulatory 12/17/2024 9:40 AM EST [facility] [address] [place] [address] Ivette Grimes MD [address] [place] [address] General [facility] Comment on above: General Start: 12-11-2024 End: 03-12-2025 Comprehensive metabolic 2000 panel - Serum or Plasma COMPREHENSIVE METABOLIC PANEL Lab Routine Hypokalemia Expected: 12/11/2024, Expires: 03/12/2025 [facility] Comment on above: Expected: 12/11/2024, Expires: Start: 12-09-2024 End: 12-09-2024 Patient encounter procedure 12/09/2024 2:20 PM EST Office Visit OB/Gynecology [address] [place] [address] Galina Camacho MD [address] [place] [address] Check up OB/Gynecology Comment on above: Check up Start: 12-09-2024 Annual PCP Team Chronic Disease Visit Annual PCP Team Chronic Disease Visit [facility] Start: 12-09-2024 BP Controlled (<130/80) BP Controlled (<130/80) [facility] Start: 12-09-2024 Covid-19 Vaccine ( season) Covid-19 Vaccine () [facility] Comment on above: Postponed from 07/05/2023 (Declined at t his time) Start: 12-09-2024 Depression Screening Depression Screening [facility] Start: 11-11-2024 [facility] Start: 11-06-2024 Annual PCP Team Chronic Disease Visit Annual PCP Team Chronic Disease Visit [facility] Start: 10-20-2024 End: 10-20-2024 Patient encounter procedure 10/20/2024 2:20 PM EST Office Visit OB/Gynecology [address] [place], [place] [id number] Galina Camacho MD [address] [place], [place] [phone] Check up OB/Gynecology Comment on above: Check up Start: 09-13-2024 BP Controlled (<130/80) BP Controlled (<130/80) [facility] Start: 09-12-2024 Glaucoma screening Dilated Retinal Exam [facility] Start: 09-10-2024 End: 09-10-2024 Patient encounter procedure Neurology Comment on above: botox Start: 09-03-2024 End: 09-03-2024 Patient encounter procedure 09/03/2024 1:00 PM EDT Office Visit Neurology [address] [place] [id number] Fatuma Beckford PA-C [address] [place], [place] [phone] botox Neurology Comment on above: botox Start: 08-05-2024 Depression Screening Depression Screening [facility] Comment on above: Postponed from 2000 (Declined at t his time) Start: 08-05-2024 End: 08-05-2024 Patient encounter procedure 08/05/2024 8:00 AM EDT Office Visit [facility] [place] [address] [place], [place] [phone] Ivette Grimes MD [address] [place], [place] [id number] [facility] [place] Comment on above: My health Start: 07-15-2024 Annual PCP Team Chronic Disease Visit Annual PCP Team Chronic Disease Visit [facility] Start: 07-05-2024 Covid-19 Vaccine () Covid-19 Vaccine () [facility] Start: 07-05-2024 Covid-19 Vaccine (4 - 2024-25 season) Covid-19 Vaccine ( season) [facility] Start: 07-05-2024 [facility] Start: 07-03-2024 End: 10-02-2024 CBC W Auto Differential panel - Blood COMPLETE BLOOD COUNT AND DIFFERENTIAL Lab Routine Type 2 diabetes mellitus with microalbuminuria, with long-term current use of insulin (HCC) Expected: 07/03/2024, Expires: 10/02/2024 [facility] Work Phone: Comment on above: Expected: 07/03/2024, Expires: Start: 07-03-2024 End: 10-02-2024 Comprehensive metabolic 2000 panel - Serum or Plasma COMPREHENSIVE METABOLIC PANEL Lab Routine Type 2 diabetes mellitus with microalbuminuria, with long-term current use of insulin (HCC) Expected: 07/03/2024, Expires: 10/02/2024 [facility] Comment on above: Expected: 07/03/2024, Expires: Start: 07-03-2024 End: 10-02-2024 Hemoglobin A1c in Blood HEMOGLOBIN A1C Lab Routine Type 2 diabetes mellitus with microalbuminuria, with long-term current use of insulin (HCC) Expected: 07/03/2024, Expires: 10/02/2024 [facility] Comment on above: Expected: 07/03/2024, Expires: Start: 07-03-2024 End: 10-02-2024 Lipid 1996 panel - Serum or Plasma LIPID PANEL BASIC Lab Routine Type 2 diabetes mellitus with microalbuminuria, with long-term current use of insulin (HCC) Expected: 07/03/2024, Expires: 10/02/2024 [facility] Comment on above: Expected: 07/03/2024, Expires: Start: 07-03-2024 End: 10-02-2024 Microalbumin/Creatinine [Mass Ratio] in Urine ALBUMIN/CREATININE RATIO, URINE Lab Routine Type 2 diabetes mellitus with microalbuminuria, with long-term current use of insulin (HCC) Expected: 07/03/2024, Expires: 10/02/2024 [facility] Comment on above: Expected: 07/03/2024, Expires: Start: 06-06-2024 ANNUAL PCP TEAM CHRONIC DISEASE VISIT ANNUAL PCP TEAM CHRONIC DISEASE VISIT [facility] Start: 06-06-2024 COVID-19 VACCINE (4 - Moderna series) COVID-19 VACCINE (4 - Moderna series) [facility] Comment on above: Postponed from 12/13/2021 (Declined at t his time) Start: 06-06-2024 Diabetic foot examination Diabetic Foot Exam [facility] Start: 06-06-2024 Urine microalbumin profile [facility] michaela Comment on above: Postponed from 06/01/2023 (Declined at t his time) Start: 06-05-2024 Hemoglobin A1c measurement HbA1C [facility] michaela Start: 05-17-2024 BP CONTROLLED (<130/80) BP CONTROLLED (<130/80) [facility] Start: 03-26-2024 End: 03-26-2024 Patient encounter procedure 03/26/2024 10:30 AM EDT Office Visit Neurology [address] [place] [address] [place] [address] Fatuma Beckford PA-C [address] [place] [address] botox 4 of 4 Neurology Comment on above: botox 4 of 4 Start: 03-05-2024 BP CONTROLLED (<130/80) BP CONTROLLED (<130/80) [facility] Start: 03-05-2024 PNEUMOCOCCAL (2 - PCV) PNEUMOCOCCAL (2 - PCV) [facility] Comment on above: Postponed from 07/28/2020 (Declined at t his time) Start: 03-05-2024 Pneumococcal vaccination [facility] Comment on above: Postponed from 07/28/2020 (Declined at t his time) Start: 03-04-2024 Hepatitis B screening URINE ALBUMIN:CREATININE RATIO [facility] Start: 02-29-2024 ANNUAL PCP TEAM CHRONIC DISEASE VISIT ANNUAL PCP TEAM CHRONIC DISEASE VISIT [facility] Start: 02-04-2024 Bacteria identified in Urine by Culture [facility] Start: 02-04-2024 [facility] Start: 02-04-2024 [facility] Start: 02-01-2024 ANNUAL PCP TEAM CHRONIC DISEASE VISIT ANNUAL PCP TEAM CHRONIC DISEASE VISIT [facility] Start: 01-18-2024 ANNUAL PCP TEAM CHRONIC DISEASE VISIT ANNUAL PCP TEAM CHRONIC DISEASE VISIT [facility] Start: 01-05-2024 ANNUAL PCP TEAM CHRONIC DISEASE VISIT ANNUAL PCP TEAM CHRONIC DISEASE VISIT [facility] Start: 12-26-2023 ANNUAL PCP TEAM CHRONIC DISEASE VISIT ANNUAL PCP TEAM CHRONIC DISEASE VISIT [facility] Start: 12-18-2023 HPV TESTING HPV TESTING [facility] Start: 12-18-2023 PAP TESTING PAP TESTING [facility] Start: 12-18-2023 Screening for malignant neoplasm of cervix [facility] Start: 12-14-2023 ANNUAL PCP TEAM CHRONIC DISEASE VISIT ANNUAL PCP TEAM CHRONIC DISEASE VISIT [facility] Start: 12-07-2023 ANNUAL PCP TEAM CHRONIC DISEASE VISIT ANNUAL PCP TEAM CHRONIC DISEASE VISIT [facility] Start: 12-07-2023 End: 02-06-2024 CBC W Auto Differential panel - Blood CBC + DIFF Lab Routine Type 2 diabetes mellitus with microalbuminuria, with long-term current use of insulin ([facility]) Expected: 12/07/2023, Expires: 02/06/2024 [facility] Work Phone: Comment on above: Expected: 12/07/2023, Expires: Start: 12-07-2023 End: 02-06-2024 Comprehensive metabolic 2000 panel - Serum or Plasma COMP METABOLIC PANEL Lab Routine Type 2 diabetes mellitus with microalbuminuria, with long-term current use of insulin ([facility]) Expected: 12/07/2023, Expires: 02/06/2024 [facility] Work Phone: Comment on above: Expected: 12/07/2023, Expires: Start: 12-07-2023 End: 02-06-2024 Hemoglobin A1c in Blood HGB A1C Lab Routine Type 2 diabetes mellitus with microalbuminuria, with long-term current use of insulin (HCC) Expected: 12/07/2023, Expires: 02/06/2024 [facility] Work Phone: Comment on above: Expected: 12/07/2023, Expires: Start: 12-07-2023 End: 02-06-2024 Lipid 1996 panel - Serum or Plasma LIPID PANEL BASIC Lab Routine Type 2 diabetes mellitus with microalbuminuria, with long-term current use of insulin (HCC) Expected: 12/07/2023, Expires: 02/06/2024 [facility] Work Phone: Comment on above: Expected: 12/07/2023, Expires: Start: 11-30-2023 ANNUAL PCP TEAM CHRONIC DISEASE VISIT ANNUAL PCP TEAM CHRONIC DISEASE VISIT [facility] Start: 11-27-2023 ANNUAL PCP TEAM CHRONIC DISEASE VISIT ANNUAL PCP TEAM CHRONIC DISEASE VISIT [facility] Start: 11-04-2023 Behavioral Health Screening Behavioral Health Screening [facility] Start: 11-04-2023 Depression Assessment Depression Assessment [facility] Start: 10-31-2023 BP CONTROLLED (<130/80) BP CONTROLLED (<130/80) [facility] Start: 10-27-2023 [facility] Start: 09-04-2023 ANNUAL PCP TEAM CHRONIC DISEASE VISIT ANNUAL PCP TEAM CHRONIC DISEASE VISIT [facility] Start: 09-04-2023 Hemoglobin A1c measurement HbA1C [facility] Start: 09-04-2023 Hemoglobin A1c/Hemoglobin.total in Blood HBA1C [facility] Start: 09-03-2023 ANNUAL PCP TEAM CHRONIC DISEASE VISIT ANNUAL PCP TEAM CHRONIC DISEASE VISIT [facility] Start: 08-10-2023 Mammography [facility] Start: 08-10-2023 Screening for malignant neoplasm of breast Mammogram Screening [facility] Start: 08-08-2023 Hepatitis B surface antibody level LDL CHOLESTEROL [facility] Start: 08-07-2023 Patient discharge [facility] Start: 08-06-2023 Telepractice consultation [facility] Start: 08-05-2023 End: 08-05-2023 [facility] Start: 08-05-2023 Following clinical pathway protocol [facility] Start: 08-05-2023 Assessment of risk of venous thromboembolism [facility] Start: 08-05-2023 Cardiac monitoring [facility] Start: 08-05-2023 Catheterization of vein [facility] Start: 08-05-2023 Continuous pulse oximetry [facility] Start: 08-05-2023 Elevation of head of bed [facility] Start: 08-05-2023 Exercises [facility] Start: 08-05-2023 Implementation of planned interventions [facility] Start: 08-05-2023 Insertion of catheter into peripheral vein [facility] Start: 08-05-2023 Measuring intake and output [facility] Start: 08-05-2023 Notification of physician [facility] Start: 08-05-2023 Oxygen therapy [facility] Start: 08-05-2023 Providing care according to standard [facility] Start: 08-05-2023 Referral to occupational therapist [facility] Start: 08-05-2023 Referral to service [facility] Start: 08-05-2023 Tobacco use cessation education [facility] Start: 08-05-2023 Vital signs measurements [facility] Start: 08-05-2023 Verification routine [facility] Start: 08-05-2023 Admission procedure [facility] Start: 08-05-2023 Oxygen therapy [facility] Start: 08-05-2023 [facility] Start: 08-05-2023 Inhalation therapy procedure [facility] Start: 08-05-2023 Patient referral to dietitian [facility] Start: 08-02-2023 3 comp foot exam [facility] Start: 08-02-2023 ANNUAL PCP TEAM CHRONIC DISEASE VISIT ANNUAL PCP TEAM CHRONIC DISEASE VISIT [facility] Start: 08-02-2023 Diabetic foot examination Diabetic Foot Exam [facility] Start: 07-05-2023 Covid-19 Vaccine ( season) Covid-19 Vaccine () [facility] Start: 07-05-2023 Influenza vaccination [facility] Start: 06-07-2023 End: 08-07-2023 Cobalamin (Vitamin B12) [Mass/volume] in Serum or Plasma VITAMIN B12 BLOOD Lab Routine Memory loss Attention and concentration deficit Expected: 06/07/2023, Expires: 08/07/2023 [facility] Work Phone: Comment on above: Expected: 06/07/2023, Expires: Start: 06-07-2023 End: 08-07-2023 Thyrotropin [Units/volume] in Serum or Plasma TSH BLD Lab Routine Memory loss Attention and concentration deficit Expected: 06/07/2023, Expires: 08/07/2023 [facility] Work Phone: Comment on above: Expected: 06/07/2023, Expires: Start: 06-07-2023 End: 08-07-2023 Thyroxine (T4) free [Mass/volume] in Serum or Plasma T4 FREE/FREE THYROX Lab Routine Memory loss Attention and concentration deficit Expected: 06/07/2023, Expires: 08/07/2023 [facility] Work Phone: Comment on above: Expected: 06/07/2023, Expires: Start: 06-01-2023 Urine microalbumin profile [facility] Start: 05-01-2023 ANNUAL PCP TEAM CHRONIC DISEASE VISIT ANNUAL PCP TEAM CHRONIC DISEASE VISIT [facility] Start: 04-02-2023 [facility] Start: 03-29-2023 Adult depression screening assessment DEPRESSION SCREENING [facility] Start: 02-28-2023 End: 04-30-2023 ALBUMIN/CREAT RATIO RND UR ALBUMIN/CREAT RATIO RND UR Lab Routine Type 2 diabetes mellitus with microalbuminuria, with long-term current use of insulin (HCC) Expected: 02/28/2023, Expires: 04/30/2023 [facility] Work Phone: Comment on above: Expected: 02/28/2023, Expires: Start: 02-28-2023 ANNUAL PCP TEAM CHRONIC DISEASE VISIT ANNUAL PCP TEAM CHRONIC DISEASE VISIT [facility] Start: 02-28-2023 End: 04-30-2023 Basic metabolic 2000 panel - Serum or Plasma BASIC METABOLIC PNL Lab Routine Myalgia Expected: 02/28/2023, Expires: 04/30/2023 [facility] Work Phone: Comment on above: Expected: 02/28/2023, Expires: Start: 02-28-2023 End: 04-30-2023 CBC W Auto Differential panel - Blood CBC + DIFF Lab Routine Myalgia Expected: 02/28/2023, Expires: 04/30/2023 [facility] Work Phone: Comment on above: Expected: 02/28/2023, Expires: 3 Start: 02-28-2023 End: 04-30-2023 Hemoglobin A1c in Blood HGB A1C Lab Routine Type 2 diabetes mellitus with microalbuminuria, with long-term current use of insulin (HCC) Expected: 02/28/2023, Expires: 04/30/2023 [facility] Work Phone: Comment on above: Expected: 02/28/2023, Expires: 3 Start: 02-28-2023 End: 04-30-2023 Iron and Iron binding capacity panel - Serum or Plasma IRON + TIBC Lab Routine Myalgia Expected: 02/28/2023, Expires: 04/30/2023 [facility] Work Phone: Comment on above: Expected: 02/28/2023, Expires: 3 Start: 02-28-2023 End: 04-30-2023 Magnesium [Mass/volume] in Serum or Plasma MAGNESIUM BLD Lab Routine Myalgia Expected: 02/28/2023, Expires: 04/30/2023 [facility] Work Phone: Comment on above: Expected: 02/28/2023, Expires: 3 Start: 02-07-2023 Hepatitis B screening URINE ALBUMIN:CREATININE RATIO [facility] Start: 02-07-2023 Hepatitis B surface antibody level LDL CHOLESTEROL [facility] Start: 02-06-2023 Hemoglobin A1c/Hemoglobin.total in Blood HBA1C [facility] Start: 01-25-2023 ANNUAL PCP TEAM CHRONIC DISEASE VISIT ANNUAL PCP TEAM CHRONIC DISEASE VISIT [facility] Start: 11-04-2022 DEPRESSION ASSESSMENT DEPRESSION ASSESSMENT [facility] Start: 10-16-2022 End: 12-16-2022 Thyrotropin [Units/volume] in Serum or Plasma TSH BLD Lab Routine Lightheadedness Expected: 10/16/2022, Expires: 12/16/2022 [facility] Work Phone: Comment on above: Expected: 10/16/2022, Expires: 3 Start: 10-06-2022 Adult depression screening assessment DEPRESSION SCREENING [facility] Start: 10-05-2022 Glaucoma screening Dilated Retinal Exam [facility] Start: 10-05-2022 Hepatitis C antibody, confirmatory test DILATED RETINAL EXAM [facility] Start: 09-04-2022 End: 11-04-2022 Basic metabolic 2000 panel - Serum or Plasma BASIC METABOLIC PNL Lab Routine Lightheadedness Expected: 09/04/2022, Expires: 11/04/2022 [facility] Work Phone: Comment on above: Expected: 09/04/2022, Expires: 3 Start: 09-04-2022 End: 11-04-2022 CBC W Auto Differential panel - Blood CBC + DIFF Lab Routine Lightheadedness Expected: 09/04/2022, Expires: 11/04/2022 [facility] Work Phone: Comment on above: Expected: 09/04/2022, Expires: 3 Start: 08-16-2022 Patient referral [facility] Work Phone: Start: 08-09-2022 Hemoglobin A1c/Hemoglobin.total in Blood HBA1C [facility] Start: 08-02-2022 End: 10-02-2022 Hemoglobin A1c in Blood HGB A1C Lab Routine Type 2 diabetes mellitus with microalbuminuria, with long-term current use of insulin (HCC) Expected: 08/02/2022, Expires: 10/02/2022 [facility] Work Phone: Comment on above: Expected: 08/02/2022, Expires: 2 Start: 08-02-2022 End: 10-02-2022 Lipid 1996 panel - Serum or Plasma LIPID PANEL BASIC Lab Routine Type 2 diabetes mellitus with microalbuminuria, with long-term current use of insulin (HCC) Expected: 08/02/2022, Expires: 10/02/2022 [facility] Work Phone: Comment on above: Expected: 08/02/2022, Expires: 2 Start: 08-02-2022 End: 10-02-2022 Thyrotropin [Units/volume] in Serum or Plasma TSH BLD Lab Routine Fatigue, unspecified type Expected: 08/02/2022, Expires: 10/02/2022 [facility] Work Phone: Comment on above: Expected: 08/02/2022, Expires: 2 Start: 07-20-2022 3 comp foot exam completed DIABETIC FOOT EXAM [facility] Start: 07-05-2022 Influenza vaccination INFLUENZA (#1) [facility] Start: 06-28-2022 Hepatitis B surface antibody level LDL CHOLESTEROL [facility] Start: 2022 Mammography MAMMOGRAM [facility] Start: 06-05-2022 End: 08-05-2022 Bacteria identified in Urine by Culture URINE CULTURE Microbiology Routine Proteinuria, unspecified type Leukocytosis, unspecified type Expected: 06/05/2022, Expires: 08/05/2022 [facility] Work Phone: Comment on above: Expected: 06/05/2022, Expires: 2 Start: 06-05-2022 End: 08-05-2022 Urinalysis complete panel - Urine URINALYSIS, WITH MICROSCOPIC Lab Routine Proteinuria, unspecified type Leukocytosis, unspecified type Expected: 06/05/2022, Expires: 08/05/2022 [facility] Work Phone: Comment on above: Expected: 06/05/2022, [...] Medication overuse headache Expected: 04/09/2022, Expires: 06/09/2022 [facility] Work Phone: Comment on above: Expected: 04/09/2022, [...] Medication overuse headache Expected: 04/09/2022, Expires: 06/09/2022 [facility] Work Phone: Comment on above: Expected: 04/09/2022, Expires: 2 Start: 12-26-2021 Patient referral [facility] Work Phone: Start: 12-13-2021 COVID-19 VACCINE (4 - Booster for Moderna series) COVID-19 VACCINE (4 - Booster for Moderna series) [facility] Start: 12-13-2021 COVID-19 VACCINE (4 - Moderna series) COVID-19 VACCINE (4 - Moderna series) [facility] Start: 11-04-2021 DEPRESSION ASSESSMENT DEPRESSION ASSESSMENT [facility] Start: 08-11-2021 Hepatitis B screening URINE ALBUMIN:CREATININE RATIO [facility] Start: 07-15-2021 Hemoglobin A1c/Hemoglobin.total in Blood HBA1C [facility] Start: 07-28-2020 PNEUMOCOCCAL (2 - PCV) PNEUMOCOCCAL (2 - PCV) [facility] Start: 07-28-2020 Pneumococcal vaccination Pneumococcal Vaccine (2 of 2 - PCV) [facility] Start: 09-24-2017 End: 09-24-2017 Appointment Appointment [facility] Work Phone: Start: 09-23-2017 End: 09-23-2017 Appointment Appointment [facility] Work Phone: Start: 09-17-2017 End: 09-17-2017 Appointment Appointment [facility] Work Phone: Start: 09-16-2017 End: 09-16-2017 Appointment Appointment [facility] Work Phone: Start: 09-12-2017 End: 09-12-2017 Appointment Appointment [facility] Work Phone: Start: 09-10-2017 End: 09-10-2017 Appointment Appointment [facility] Work Phone: Start: 09-09-2017 End: 09-09-2017 Appointment Appointment [facility] Work Phone: Start: 09-05-2017 End: 09-05-2017 Appointment Appointment [facility] Work Phone: [...] 3x/week Follow up Appt 3x/week [facility] Work Phone: Start: 08-06-2017 End: 08-06-2017 Follow up Appt 3x/week Follow up Appt 3x/week [facility] Work Phone: Start: 07-02-2017 End: 07-02-2017 Mri spinal canal lumbar w/o contrast material MRI Lumbar Spine [facility] Work Phone: Start: 06-06-2017 End: 06-06-2017 Mri spinal canal lumbar w/o contrast material MRI Lumbar Spine [facility] Work Phone: Start: 05-10-2017 End: 05-10-2017 Radex spine lumbosacral minimum 4 views X-Ray, Spine, Lumbosacral 2-3 views [facility] Work Phone: Start: 05-09-2017 End: 05-09-2017 Physical Therapy General Physical [facility], [address] [place] [address], [id number] [facility] Work Phone: Start: 2001 HEPATITIS B (1 of 3 - Risk 3-dose series) HEPATITIS B (1 of 3 - Risk 3-dose series) [facility] Start: 2000 BP CONTROLLED (<130/80) BP CONTROLLED (<130/80) [facility] Start: 2000 Depression Screening Depression Screening [facility] Start: 1982 HEPATITIS B (1 of 3 - 3-dose series) HEPATITIS B (1 of 3 - 3-dose series) [facility] Chiropractic manipulation [facility] End: 03-29-2024 Ct soft tissue neck w/contrast material CT NECK SOFT TISSUE W IVCON Radiology Routine Soft tissue mass 1 Occurrences starting 02/28/2023 until 03/29/2024 [facility] Work Phone: Comment on above: 1 Occurrences starting 02/28/2023 until 03/29/2024 End: 12-17-2025 DBT Breast - bilateral screening FLASH SCREENING W JAQUELIN Radiology Routine Encounter for screening mammogram for breast cancer 1 Occurrences starting 11/17/2024 until 12/17/2025 [facility] Work Phone: Comment on above: 1 Occurrences starting 11/17/2024 until 12/17/2025 End: 07-07-2026 DBT Breast - bilateral screening FLASH SCREENING W JAQUELIN Radiology Routine Encounter for screening mammogram for breast cancer 1 Occurrences starting 06/07/2025 until 07/07/2026 [facility] Comment on above: 1 Occurrences starting 06/07/2025 until 07/07/2026 End: 09-04-2023 ECG COMPLETE ECG COMPLETE ECG Routine Prolonged Q-T interval on ECG 1 Occurrences starting 09/04/2022 until 09/04/2023 [facility] Work Phone: Comment on above: 1 Occurrences starting 09/04/2022 until 09/04/2023 Electrocardiographic procedure [facility] End: 03-05-2024 EPIL EEG ROUTINE EPIL EEG ROUTINE NEUROLOGY Routine Altered awareness, transient 1 Occurrences starting 03/05/2023 until 03/05/2024 [facility] Work Phone: Comment on above: 1 Occurrences starting 03/05/2023 until 03/05/2024 Hemoglobin A1c/Hemoglobin.total in Blood [facility] Injection aa&/strd suprascapular nerve INJECT NERV BLCK,SUPRASCAP N. Procedures Routine Adhesive capsulitis of left shoulder Primary osteoarthritis of left shoulder Ordered: 05/10/2022 [facility] Work Phone: Comment on above: Ordered: 05/10/2022 Magnesium [Mass/volu me] in Serum or Plasma [facility] Work Phone: End: 07-05-2024 FLASH SCREENING FLASH SCREENING Radiology Routine Encounter for screening mammogram for malignant neoplasm of breast 1 Occurrences starting 06/06/2023 until 07/05/2024 [facility] Work Phone: Comment on above: 1 Occurrences starting 06/06/2023 until 07/05/2024 End: 01-07-2025 FLASH SCREENING W JAQUELIN FLASH SCREENING W JAQUELIN Radiology Routine Encounter for screening mammogram for malignant neoplasm of breast 1 Occurrences starting 12/09/2023 until 01/07/2025 [facility] Work Phone: Comment on above: 1 Occurrences starting 12/09/2023 until 01/07/2025 MR Lower Extremity [facility] End: 01-06-2024 Mri brain brain stem w/o contrast material MRI BRAIN WO IVCON Radiology Routine Post concussion syndrome Intractable acute post-traumatic headache Dizziness Cervicalgia 1 Occurrences starting 12/07/2022 until 01/06/2024 [facility] Work Phone: Comment on above: 1 Occurrences starting 12/07/2022 until 01/06/2024 End: 01-06-2024 Mri spinal canal cervical w/o contrast matrl MRI CERVICAL SPINE WO IVCON Radiology Routine Post concussion syndrome Intractable acute post-traumatic headache Dizziness Cervicalgia 1 Occurrences starting 12/07/2022 until 01/06/2024 [facility] Work Phone: Comment on above: 1 Occurrences starting 12/07/2022 until 01/06/2024 Patient Education [facility] Work Phone: Patient referral [facility] Work Phone: End: 03-01-2024 US HEAD/NECK SOFT TISSUE OTHER US HEAD/NECK SOFT TISSUE OTHER Radiology Routine Soft tissue mass 1 Occurrences starting 01/31/2023 until 03/01/2024 [facility] Work Phone: Comment on above: 1 Occurrences starting 01/31/2023 until 03/01/2024 US Heart [facility] Work Phone: End: 08-20-2025 XR Chest PA and Lateral XR CHEST 2V FRONTAL/LAT Radiology Routine Cough, unspecified type 1 Occurrences starting 07/21/2024 until 08/20/2025 [facility] Work Phone: Comment on above: 1 Occurrences starting 07/21/2024 until 08/20/2025 End: 01-10-2026 XR Chest PA and Lateral XR CHEST 2V FRONTAL/LAT Radiology STAT Sinobronchitis 1 Occurrences starting 12/11/2024 until 01/10/2026 [facility] Work Phone: Comment on above: 1 Occurrences starting 12/11/2024 until 01/10/2026 End: 05-31-2023 XR RIBS/CHEST 3V AP RIB/OBLS/CXR LEFT XR RIBS/CHEST 3V AP RIB/OBLS/CXR LEFT Radiology Routine Rib pain 1 Occurrences starting 05/01/2022 until 05/31/2023 [facility] Work Phone: Comment on above: 1 Occurrences starting 05/01/2022 until 05/31/2023 [facility] Immunizations Immunization Date Immunization Notes Care Provider Fa [facility] 09-08-2024 influenza, seasonal, injectable, preservative free Dr. Ivette Grimes MD Work Phone: [facility] 09-08-2024 influenza virus vacc ine, unspecified formulation Ivette Grimes MD Work Phone: [facility] 09-23-2023 influenza virus vacc ine, unspecified formulation Ivette Grimes MD Work Phone: [facility] 09-19-2023 influenza, injectabl e, quadrivalent, preservative free Self Referred [facility] 08-06-2022 influenza, injectabl e, quadrivalent, preservative free Dr. Ivette Grimes Work Phone: [facility] 08-06-2022 influenza, seasonal, injectable Ivette Grimes MD Work Phone: [facility] 08-06-2022 influenza virus vacc ine, unspecified formulation Ivette Grimes MD Work Phone: [facility] 10-18-2021 Covid (Moderna) Dr. Ivette Grimes Work Phone: [facility] 08-01-2021 influenza virus vacc ine, unspecified formulation Elle Sanchez MD Work Phone: [facility] 08-01-2021 influenza, injectabl e, quadrivalent, preservative free Dr. Ivette Grimes Work Phone: [facility] 08-01-2021 influenza, seasonal, injectable Dr. Ivette Grimes Work Phone: [facility] 08-01-2021 influenza, seasonal, injectable, preservative free Ivette Grimes MD Work Phone: [facility] 11-29-2020 COVID-19 vaccine, fu ll dose (MODERNA) Elle Sanchez MD Work Phone: [facility] 11-01-2020 Covid (Moderna) Dr. Ivette Grimes Work Phone: [facility] 10-31-2020 COVID-19 vaccine, fu ll dose (MODERNA) Elle Sanchez MD Work Phone: [facility] 08-02-2020 influenza, injectabl e, quadrivalent, preservative free Dr. Ivette Grimes Work Phone: [facility] 08-02-2020 influenza, seasonal, injectable Dr. Ivette Grimes Work Phone: [facility] 08-02-2020 influenza, seasonal, injectable, preservative free Ivette Grimes MD Work Phone: [facility] 08-01-2020 influenza virus vacc ine, unspecified formulation Elle Sanchez MD Work Phone: [facility] 07-30-2019 influenza, injectabl e, quadrivalent, contains preservative Ivette Grimes MD Work Phone: [facility] 07-30-2019 influenza, injectabl e, quadrivalent, preservative free Dr. Ivette Grimes Work Phone: [facility] 07-30-2019 influenza, seasonal, injectable Dr. Ivette Grimes Work Phone: [facility] 07-28-2019 pneumococcal polysaccharide vaccine, 23 valent Elle Sanchez MD Work Phone: [facility] 08-01-2018 influenza, injectabl e, quadrivalent, preservative free Dr. Ivette Grimes Work Phone: [facility] 08-01-2018 influenza, seasonal, injectable Dr. Ivette Grimes Work Phone: [facility] 08-07-2017 influenza, seasonal, injectable Elle Sanchez MD Work Phone: [facility] 07-31-2017 influenza, injectabl e, quadrivalent, preservative free Dr. Ivette Grimes Work Phone: [facility] 07-31-2017 influenza, seasonal, injectable Dr. Ivette Grimes Work Phone: [facility] 08-02-2016 influenza, injectabl e, quadrivalent, preservative free Dr. Ivette Grimes Work Phone: [facility] 08-02-2016 influenza, seasonal, injectable Dr. Ivette Grimes Work Phone: [facility] 07-09-2016 influenza, injectabl e, quadrivalent, contains preservative Elle Sanchez MD Work Phone: [facility] 03-05-2016 hepatitis B vaccine, pediatric or pediatric/adolescent dosage Elle Sanchez MD Work Phone: [facility] 03-05-2016 hepatitis B vaccine, unspecified formulation Elle Sanchez MD Work Phone: [facility] 07-25-2015 influenza, injectabl e, quadrivalent, contains preservative Ivette Grimes MD Work Phone: [facility] 07-25-2015 influenza, injectabl e, quadrivalent, preservative free Dr. Ivette Grimes Work Phone: [facility] 07-25-2015 influenza, seasonal, injectable Dr. Ivette Grimes Work Phone: [facility] 07-25-2015 varicella virus vaccine Cathy Sanchez MD Work Phone: [facility] 06-06-2015 hepatitis B vaccine, pediatric or pediatric/adolescent dosage Elle Sanchez MD Work Phone: [facility] 05-05-2015 hepatitis B vaccine, pediatric or pediatric/adolescent dosage Elle Sanchez MD Work Phone: [facility] 06-01-2013 tetanus toxoid, redu jamila diphtheria toxoid, and acellular pertussis vaccine, adsorbed Elle Sanchez MD Work Phone: [facility] 02-22-2009 human papilloma viru s vaccine, quadrivalent Elle Sanchez MD Work Phone: [facility] Work Phone: 09-27-2008 human papilloma viru s vaccine, quadrivalent Elle Sanchez MD Work Phone: [facility] Work Phone: 07-20-2008 human papilloma viru s vaccine, quadrivalent Elle Sanchez MD Work Phone: [facility] Work Phone: Payers Date Payer Category Payer Unknown [id number] 2024 Self-pay [id number] [phone] [id number] 2022 Government (not [facility] care or Medicaid) [facility] [id number] 2022 Private Health Insurance [id number]. [id number] 2022 Unknown [id number] 2020 Unknown [id number]. [id number] 2019 Unknown [id number]. 1.13.159.2. [id number] 2015 Unknown [id number] Unknown [id number] Unknown [id number] 2.16840.1.799048.3.579.2. 462 Unknown [id number] 2.16840.1.908235.3.579.2. 462 Unknown [id number] 2.840.1.602365.3.579.2. 462 Unknown [id number] 2.16840.1.937932.3.579.2. 462 Unknown [id number] 2.16840.1.499218.3.579.2. 462 Unknown [id number] 2.16840.1.562844.3.579.2. 462 Unknown [id number] 2.16840.1.872139.3.579.2. 462 Unknown [id number] 2.16840.1.523651.3.579.2. 462 Unknown [id number] 2.16.840.1.016636.3.579.2. 462 Unknown [id number] 2.16.840.1.753939.3.579.2. 462 Unknown [id number] 2.16.840.1.905604.3.579.2. 462 Unknown [id number] 2.16.840.1.156798.3.579.2. 462 Unknown [id number] 2.840.1.077398.3.579.2. 462 Unknown [id number] 2.840.1.516822.3.579.2. 462 Unknown [id number] 2.840.1.398308.3.579.2. 462 Unknown [id number] 2.840.1.739748.3.579.2. 462 Unknown [id number] 2.840.1.888066.3.579.2. 462 Unknown [id number] 2.840.1.500936.3.579.2. 462 Unknown [id number] 2.840.1.574192.3.579.2. 462 Unknown [id number] 2.840.1.981376.3.579.2. 462 Unknown [id number] 2.840.1.192473.3.579.2. 462 Unknown [id number] 2.840.1.892443.3.579.2. 462 Unknown [id number] 2.840.1.585015.3.579.2. 462 Unknown [id number] 2.840.1.291138.3.579.2. 462 Unknown [id number] 2.840.1.413488.3.579.2. 462 Unknown [id number] 2.840.1.302107.3.579.2. 462 Unknown [id number] 2.840.1.735942.3.579.2. 462 Unknown [id number] 2.840.1.225331.3.579.2. 462 Unknown [id number] 2.840.1.073480.3.579.2. 462 Unknown [id number] 2.840.1.487072.3.579.2. 462 Unknown [id number] 2.840.1.347153.3.579.2. 462 Unknown [id number] 2.840.1.010017.3.579.2. 462 Social History Date Type Detail Facility Start: 03-14-2011 End: 06-10-2025 Tobacco smoking status NHIS Never smoked tobacco [facility] Start: 01-25-2022 End: 06-07-2025 Alcohol intake Current non-drinker of alcohol (finding) [facility] Start: 09-13-2020 End: 11-01-2022 History SDOH Alcohol Frequency 1 [facility] Start: 03-09-2020 History SDOH Social Connections Phone 5 [facility] Start: 03-09-2020 End: 11-01-2022 History SDOH Social Connections Get Together 2 [facility] Start: 03-09-2020 End: 11-01-2022 History SDOH Social Connections Worship 3 [facility] Start: 03-09-2020 End: 11-01-2022 History SDOH Social Connections Living 7 [facility] Start: 09-13-2020 End: 11-01-2022 History SDOH Financial 4 [facility] Start: 08-15-2020 Education 16 [facility] Start: 1980 Sex Assigned At Female C [facility] Start: 01-19-2022 End: 01-22-2023 Exposure to SARS-CoV-2 (event) Not sure [facility] Start: 02-06-2022 End: 02-04-2024 Tobacco smoking status NHIS Unknown if ever smoked [facility] Start: 05-15-2020 [facility] 05-15[facility]2020 [facility] Start: 05-05-2020 [facility] Start: 03-14-2011 End: 07-19-2022 Tobacco use and exposure Smokeless tobacco non-user [facility] Work Phone: Start: 11-01-2022 History SDOH Alcohol Std Drinks 0 [facility] Start: 11-01-2022 End: 05-17-2023 History of Social function [facility] Start: 11-01-2022 End: 05-17-2023 Social connection and isolation panel [facility] Do you belong to any clubs or organizations such as [employer] groups, [employer], [employer] or [employer] groups, or school groups? No [facility] Are you now , , , , never or living with a partner? Never [facility] How often to you hav e a drink containing alcohol? Never [facility] Start: 10-05-2012 How many standard drinks containing alcohol do you have on a typical day? Patient does not drink [facility] How hard is it for y ou to pay for the very basics like food, housing, medical care, and heating Not very hard [facility] Do you feel stress - tense, restless, nervous, or anxious, or unable to sleep at night because your mind is troubled all the time - these days [OSQ] Only a little [facility] (I/We) worried wheth er (my/our) food would run out before (I/we) got money to buy more. Never true [facility] Start: 05-27-2020 Gender identity Identifies as female gender (finding) [facility] Start: 05-27-2020 Sexual orientation Heterosexual (fin ding) [facility] Do you belong to any clubs or organizations such as [employer] groups, [employer], [employer] or [employer] groups, or school groups? Yes [facility] Start: 02-02-2025 Sex Female (finding) [facility] NEGATED: Highlighted row [facility] Medical Equipment Procedure Code Equipment Code Equipment Origin al Text Equipment Identifier Dates [id number], [id number] Start: 07-22-2018 Comment on above: Test blood [...] 0 12/11/19 10:02 AM EST User, Katehart [facility] 12-11-2024 Within the last year , have you been humiliated or emotionally abused in other ways by your partner or ex-partner? No 12/11/2024 10:02 AM EST User, Mychart No [facility] 12-11-2024 Within the last year , have you been afraid of your partner or ex-partner? No 12/11/2024 10:02 AM EST User, Katehart No [facility] 12-11-2024 Within the last year , have you been raped or forced to have any kind of sexual activity by your partner or ex-partner? No 12/11/2024 10:02 AM EST User, Mychart No [facility] 12-11-2024 Within the last year , have you been kicked, hit, slapped, or otherwise physically hurt by your partner or ex-partner? No 12/11/2024 10:02 AM EST User, Mychart No [facility] 12-11-2024 How often to you hav e a drink containing alcohol? Never 12/11/2024 10:02 AM EST User, Mychart Never [facility] 12-11-2024 Functional status Patient does n ot drink 12/11/2024 10:02 AM EST User, Mychart Patient does not drink [facility] 12-11-2024 How often do you hav e 6 or more drinks on 1 occasion? Never 12/11/2024 10:02 AM EST User, Mychart Never [facility] 08-07-2023 Functional status Chair [facility] Work Phone: 10-22-2014 Are you deaf, or do you have serious difficulty hearing No 10/22/2014 10:49 AM AKILA Goss MaRickAshanti No [facility] 10-22-2014 Are you blind, or do you have serious difficulty seeing, even when wearing glasses No 10/22/2014 10:49 AM Ashanti Mejia Ma [facility] 10-22-2014 Do you have serious difficulty walking or climbing stairs No 10/22/2014 10:49 AM Ashanti Mejia Ma [facility] 10-22-2014 Do you have difficul ty dressing or bathing No 10/22/2014 10:49 AM Ashanti Mejia Ma [facility] 10-22-2014 Because of a physica l, mental, or emotional condition, do you have difficulty doing errands alone such as visiting a physician's office or shopping No 10/22/2014 10:49 AM AKILA Goss Ma Ashanti Mora [facility] Mental Status Date Assessment Result Facility 06-23-2025 Cognitive function Voice/Name [facility] Work Phone: 11-11-2024 Cognitive function Voice/Name [facility] Work Phone: 02-04-2024 Cognitive function Level Of Cons ciousness Awake;Alert;Appropriate [facility] Work Phone: 08-07-2023 Cognitive function Voice/Name [facility] Work Phone: 08-05-2023 Cognitive function Level Of Cons ciousness Awake;Alert;Appropriate;Fol lows Commands [facility] Work Phone: 05-20-2023 Cognitive function Level Of Cons ciousness Awake;Alert;Appropriate [facility] Work Phone: 12-03-2022 Cognitive function Level Of Cons ciousness Awake;Alert;Appropriate;Fol lows Commands [facility] Work Phone: 11-27-2022 Cognitive function Level Of Cons ciousness Awake;Alert;Appropriate [facility] Work Phone: 10-22-2014 Because of a physica l, mental, or emotional condition, do you have serious difficulty concentrating, remembering, or making decisions No 10/22/2014 10:49 AM EST Masters Ashanti Ramirez [facility] Clinical Notes 12-06-2012 to 06-25-2025 Note Date & Type Note Facility 06-25-2025 Progress note [facility] 06-25-2025 Progress note Note Date/Time June 25, 2025 9:35am [facility] [address] [place] [address] [address] [place] [address] OFFICE VISIT Date of Service: 06/25/25 MR#: [id number] Acct: [id number] Name: TORI GRAY Rep #: [id number] : 1980 Provider: Dr. Killian Quiroga MD Age/Sex: 45/F Location: [facility] Status: Signed Intake Vital Signs 05/06/25 10:04 [...] Cosigner Signature: Date (if applicable) CC: ~ [facility] Work Phone: 1(298) 774-961708-20-2025 Discharge summary Author Brett Quiroga [facility] Note Date/Time June 23, 2025 8: 39am [facility] Medical Records Department [address] [place] [address] Instructions for Home/Discharge Instructions 06/23/25 0836 MR#: [id number] Acct: [id number] Name: TORI GRAY Rep #:[id number] : 1980 45 From: Brett Quiroga MD [...] Patient Instructions: After Shoulder Arthroscopy Print Language: [place] Discharge Orders/Prescriptions Prescriptions: New oxycodone-acetaminophen [Endocet] 5-325 [...] CC: Dr. Ivette Grimes MD ~ Signed [facility] Work Phone: 1(993) 894-518208-20-2025 Consult note [facility] Medical Records Department [address] [place] [address] Pre-Anesthesia Evaluation 06/23/25 0739 MR#: [id number] Acct: [id number] Name: TORI GRAY Rep #:[id number] : 1980 45 From: Ankur ROJO PCP: Dr. Ivette Grimes MD Status:REG S DC Y Race: C Location: [place] [address]- ASA Classification* ASA Classification ASA Classification: 3 [...] DECOMPRESSION DEBRIDMENT Anesthesia History Anesthesia History - supervisor spring up: Anesthesia History - supervisor spring up Hx Hospitalization No 06/10/25 09:08 Any Problems [...] take am of surgery PONV PONV - supervisor spring up: PONV - supervisor spring up Female Yes 06/10/25 09:08 HX of Motion [...] 06/23/25 06:40 Respiratory Assessment Respiratory Assessment - supervisor spring up: Respiratory Tract Infection Hx - supervisor spring up Hx Respiratory Tract Infection No 06/10/25 09:08 STOP Sleep Apnea STOP Sleep Apnea - supervisor spring up: STOP Sleep Apnea - supervisor spring up Hx Hypertension No: LISINOPRIL FOR LIVER 06/10/25 [...] Tobacco Use History Tobacco Use History - supervisor spring up: Tobacco Use History - supervisor spring up Tobacco Use Non-smoker 03/09/25 09:20 Smoking Status Never smoker 06/10/25 09:08 Hx Tobacco Use No 06/10/25 09:08 Years Smoking Packs Smoked per Day Smoking Cessation Date was within the last 15 years Hx Smoking Cessation Date Hx Smoking Cessation Counseling Hematologic Medial History Hematologic Hx - supervisor spring up: 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 06/23/25738 MAMMAL CONTROL AGENT> Date _ Ankur Templeton MAMMAL CONTROL AGENT Cosigner Signature: Date CC: ~ Signed [facility]08-20-2025 Consult note Author Ankur Templeton [facility] Note Date/Time June 23, 2025 10 :38am [facility] Medical Records Department [address] [place] [address] Pre-Anesthesia Evaluation 06/23/2539 MR#: [id number] Acct: [id number] Name: TORI GRAY Rep #:[id number] : 1980 45 From: Ankur ROJO PCP: Dr. Ivette Grimes MD Status:REG S DC Y Race: C Location: [facility] ASA Classification* ASA Classification ASA Classification: 3 [...] DECOMPRESSION DEBRIDMENT Anesthesia History Anesthesia History - supervisor spring up: Anesthesia History - supervisor spring up Hx Hospitalization No 06/10/25 09:08 Any Problems [...] take am of surgery PONV PONV - supervisor spring up: PONV - supervisor spring up Female Yes 06/10/25 09:08 HX of Motion [...] 06/23/25 06:40 Respiratory Assessment Respiratory Assessment - supervisor spring up: Respiratory Tract Infection Hx - supervisor spring up Hx Respiratory Tract Infection No 06/10/25 09:08 STOP Sleep Apnea STOP Sleep Apnea - supervisor spring up: STOP Sleep Apnea - supervisor spring up Hx Hypertension No: LISINOPRIL FOR LIVER 06/10/25 [...] Tobacco Use History Tobacco Use History - supervisor spring up: Tobacco Use History - supervisor spring up Tobacco Use Non-smoker 03/09/25 09:20 Smoking Status Never smoker 06/10/25 09:08 Hx Tobacco Use No 06/10/25 09:08 Years Smoking Packs Smoked per Day Smoking Cessation Date was within the last 15 years Hx Smoking Cessation Date Hx Smoking Cessation Counseling Hematologic Medial History Hematologic Hx - supervisor spring up: 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 Hx of Blood Transfusion No 06/10/25 09:08 [...] confused, unrespo /Reproduction History /Reproductive History - supervisor spring up: /Reproductive Hx- supervisor spring up Hx Now No 06/10/25 09:08 Gestational Age [...] CRNA Cosigner Signature: Date CC: ~ Signed [facility] Work Phone: 1(318) 612-362408-20-2025 History and physical note [facility] Note Date/Time June 23, 2025 7: 14am [facility] Medical Records Department [address] [place] [address] History & Physical Exam 06/23/2512 MR#: [id number] Acct: [id number] Name: TORI GRAY Rep #:[id number] : 1980 45 From: Brett Quiroga MD PCP: Dr. Ivette Grimes MD Status:REG S DC Location: [place] [address]- HPI - General HPI Narrative TORI GRAY, is a 45 F who presents for left shoulder arthroscopy, subacromial decompression, debridement. no change to h and p. ok to proceed. rab, post op instructions, narcotic counselling. possible licodaine allergy, butafter discussion with anesthesia, the patient and the anesthesia provider have decided to proceed with a block. left shoulder marked. ok to proceed. MR#: [id number] Acct: [id number] Name: TORI GRAY Rep #: [id number] : 1980 Provider: Dr. 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 Supplemental Info [facility] Imaging Services [address] [place] [address] Upper Ext Joint Only(Routine) MR#: [id number] Acct: [id number] Name: TORI GRAY Rep #: [id number] : 1980 F 44 From: Salazar Tyson MD PCP: Dr. Ivette Grimes MD Status: REG CLI Study: Upper Ext Joint Only(Routine) Date of Exam: 04/17/25 Exam# [id number] Ordering Dr: Brett Quiroga MD PROCEDURE: UPPER [...] subacromial subdeltoid bursa, with bursitis. [facility]. Concur with [...] blood flow before exercises. 4. Anti-Inflammatory Medications: Qwgf-jiq-[id number] medications like ibuprofen or naproxen can help [...] radial pulse. strength FE 4+, ER 5/5. [facility] Medical History Diabetes Fatty liver Gastric reflux [...] Quiroga MD; Dr. Ivette Grimes MD~ Signed [facility] Work Phone: 1(471) 134-395208-20-2025 Consult note [facility] Medical Records Department [address] [place] [address] Anesthesia Postop Eval I 06/23/25 0857 MR#: [id number] Acct: [id number] Name: TORI GRAY Rep #:[id number] : 1980 45 From: Ankur ROJO PCP: Dr. Ivette Grimes MD Status:REG S DC Y Race: C Location: [place] [address]- Anesthesia: Postop Eval I Current Vital Signs Temperature: 97.8 F Pulse Rate: 74 Blood Pressure: 114/70 Respiratory Rate: 16 Pulse Ox: 94 Assessment Airway patent: Yes Spontaneous unlabored respirations: Yes nausea: No Vomiting: No Anesthesia Complication: No Fluid Hydration Crystalloid volume administer (ml): 800 Total IV fluid infused: 800 Progress Note Anesthesia document: Postop Eval 1 completed: Yes 06/23/25 0858 MAMMAL CONTROL AGENT> Date _ Ankur Haddadt MAMMAL CONTROL AGENT Cosigner Signature: Date CC: ~ Signed [facility]08-20-2025 Discharge summary [facility] Medical Records Department [address] [place] [address] Instructions for Home/Discharge Instructions 06/23/25 0836 MR#: [id number] Acct: [id number] Name: TORI GRAY Rep #:[id number] : 1980 45 From: Brett Quiroga MD [...] Patient Instructions: After Shoulder Arthroscopy Print Language: [place] Discharge Orders/Prescriptions Prescriptions: New oxycodone-acetaminophen [Endocet] 5-325 [...] CC: Dr. Ivette Grimes MD ~ Signed [facility]08-20-2025 Procedure note [facility] Medical Records Department [address] [place] [address] Operative Report 06/23/25830 MR#: [id number] Acct: [id number] Name: TORI GRAY Rep #:[id number] : 1980 45 From: Brett Quiroga MD PCP: Dr. Ivette Grimes MD Status:REG S [place] Location: [place] [address]-1 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 organisation and methods analyst: Yes [employer]: jamila Tasks completed by certified registered dental assistant: Retracting Additional reference assistant?: No Type of Anesthesia: Block,Regional and [...] home according to day surgery criteria. CPT 08714, 77157 Surgical Findings: As above Complications Complications: No Admit VTE Documentation VTE Present on Admission: No VTE Mechan Device Prophylaxis: SCD's VTE Pharm Prophylaxis ordered?: No Reason prophylaxis not ordered: Treatment Not Indicated 06/23/25 0836 Cosigner Signature (if applicable): CC: Dr. Brett Quiroga MD; Dr. Ivette Grimes MD~ Signed [facility]08-20-2025 History and physical note [facility] Medical Records Department [address] [place] [address] History & Physical Exam 06/23/25 0712 MR#: [id number] Acct: [id number] Name: TORI GRAY Rep #:[id number] : 1980 45 From: Brett Quiroga MD PCP: Dr. Ivette Grimes MD Status:REG S DC Location: [place] [address] HPI - General HPI Narrative TORI GRAY, is a 45 F who presents for left shoulder arthroscopy, subacromial decompression, debridement. no change to h and p. ok to proceed. rab, post op instructions, narcotic counselling. possible licodaine allergy, butafter discussion with anesthesia, the patient and the anesthesia provider have decided to proceed with a block. left shoulder marked. ok to proceed. MR#: [id number] Acct: [id number] Name: TORI GRAY Rep #: [id number] : 1980 Provider: Dr. Brett Quiroga MD Age/Sex: 44/F Location: [facility] Status: Signed Intake Vital Signs 03/22/2509:08 05/06/2510:04 [...] made by me, Dr. Kassie MD 05/06/25 0998. Part of today?s visit was documented by [ ], acting as scribe. TORI GRAY is a 44 year old F here today for follow-up left shoulder MRI. [facility] with [facility]. getting worse. cant do injections. seems to be getting worse, with ADLs as well. worse with lifting. lat and anterior pain. 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 Supplemental Info [facility] Imaging Services [address] [place], [place] [id number] Upper Ext Joint Only(Routine) MR#: [id number] Acct: [id number] Name: TORI GRAY Rep #: [id number] : 1980 F 44 From: Salazar Tyson MD PCP: Dr. Ivette Grimes MD Status: REG CLI Study: Upper Ext Joint Only(Routine) Date of Exam: 04/17/25 Exam# [id number] Ordering Dr: Brett Quiroga MD PROCEDURE: UPPER [...] blood flow before exercises. 4. Anti-Inflammatory Medications: Gehe-rrp-daesktd medications like ibuprofen or naproxen can help [...] Quiroga MD; Dr. Ivette Grimes MD~ Signed [facility]08-20-2025 [facility] Medical Records Department [address] [place] [address] History Physical Exam 06/23/25 0712 MR#: [id number] Acct: [id number] Name: TORI GRAY Rep #: [id number] : 1980 45 From: Brett Quiroga MD PCP: Dr. Ivette Grimes MD Status:[facility] Location: [place] [address]- HPI - General HPI Narrative TORI GRAY, is a 45 F who presents for left shoulder arthroscopy, subacromial decompression, debridement. no change to h and p. ok to proceed. rab, post op instructions, narcotic counselling. possible licodaine allergy, but after discussion with anesthesia, the patient and the anesthesia provider have decided to proceed with a block. left shoulder marked. ok to proceed. MR#: [id number] Acct: [id number] Name: TORI GRAY Rep #: [id number] : 1980 Provider: Dr. Brett Quiroga MD Age/Sex: 44/F Location: [facility] Status: Signed Intake Vital Signs 03/22/2509:08 05/06/2510:04 [...] PRN migraine 02/04/24 05/06/25 Hist ory tablet ([facility] ODT) headache semaglutide 0.25 mg or 0.5 [...] 2005) Family History (Rev (more content not included)...[facility] 06-17-2025 Progress [facility] [address] [place] [address] OFFICE VISIT Date of Service: 06/17/25 MR#: [id number] Acct: [id number] Name: TORI GRAY Rep #: [id number] : 1980 Provider: CONCEPCIÓN Rehman Age/Sex: 45/F Location: [facility] Status: Signed Intake Vital Signs 05/06/25 10:04 [...] History mg/3 mL) subcutaneous pen injector (Ozempic) [facility] Medical History Diabetes Fatty liver Gastric reflux [...] CPT Codes Procedures - Manipulation: 3-4 regions (35797) Procedures - Traction, Mechanical: Yes (45130) 06/17/25 1005 .C.> Date _ Bibiana Rehman D.C. Cosigner Signature: Date (if applicable) CC: ~ [facility]08-14-2025 Progress note Author Bibiana Rehman [facility] Note Date/Time June 17, 2025 10 :05am [facility] [address] [place] [address] OFFICE VISIT Date of Service: 06/17/25 MR#: [id number] Acct: [id number] Name: TORI GRAY Rep #: [id number] : 1980 Provider: CONCEPCIÓN Rehman Age/Sex: 45/F Location: [facility] Status: Signed Intake Vital Signs 05/06/25 10:04 [...] History mg/3 mL) subcutaneous pen injector (Ozempic) [facility] Medical History Diabetes Fatty liver Gastric reflux [...] CPT Codes Procedures - Manipulation: 3-4 regions (78952) Procedures - Traction, Mechanical: Yes (68683) 06/17/25 1005 <Electronically signed by Bibiana Aguilar> Date _ Bibiana Rehman D.C. Cosigner Signature: Date (if applicable) CC: ~ [facility] [employer] Work Phone: 1(793) 521-974108-07-2025 Telephone encounter Note* Telephone Encounter - Juliana Murphy MA - 06/10/2025 2:17 PM EDT LDL Direct scanned to chart [facility]08-07-2025 Miscellaneous Notes* Telephone Encounter - Juliana Murphy MA - 06/10/2025 2:17 PM EDT LDL Direct scanned to chart * Telephone Encounter - Nirmala Storey LPN - 06/09/2025 12:53 PM EDT [employer] message sent to the patient. * Telephone Encounter - Ivette Grimes MD - 06/09/2025 10:48 AM EDT Lets increase the ozempic to 2 mg a day. Call sugars in two weeks. Watch the diet. * Telephone Encounter - Nirmala Storey LPN - 06/09/2025 10:20 AM EDT [facility]1C from [facility] 7.4 documented in this encounterUniversity Hospitals [facility]08-07-2025 Hospital Discharge instructionsAmbulatory Orders* 12 Lead EKG [[facility]] Time Frame: 06/10/25, Location: None Selected [facility] Work Phone: 1(627) 752-584808-06-2025 Telephone encounter Note* Telephone Encounter - Nirmala Storey LPN - 06/09/2025 12:53 PM EDT [employer] message sent to the patient. [facility]08-06-2025 Telephone encounter Note* Telephone Encounter - Ivette Grimes MD - 06/09/2025 10:48 AM EDT Lets increase the ozempic to 2 mg a day. Call sugars in two weeks. Watch the diet. [facility]08-06-2025 Telephone encounter Note* Telephone Encounter - Nirmala Storey LPN - 06/09/2025 10:20 AM EDT HgbA1C from [facility] 7.4 [facility]08-04-2025 NoteHNO ID: [id number] Author: IVETTE GRIMES MD Service: ? Author [...] for June [address] Quiroga at [facility]. - Follow-up appointment with Dr. Camacho [...] 1 tablet by mouth once daily. Ipratropium What Cheer (ATROVENT) 21 mcg (0.03 %) nasal spray [...] 1 Each by INTRAUTERINE route as directed. Jnlccsco-Yo-Rcy-Fe-FA tab Take 1 tablet by mouth once [...] Age of Onset Alcohol/Drug Mother Heart Father DC Cancer Father PANCREATIC CANCER Diabetes Father Coronary Artery Disease Father Anxiety disorder Sister Depression Sister Depression Brother Cancer Maternal Grandmother LUNG CANCER Diabetes Maternal Grandfather Heart Paternal Grandmother TRIPLE BYPASS SURGERY S (more content not included)...[facility]08-04-2025 History of Present illness Narrative* [...] for June [address] Quiroga at [facility]. - Follow-up appointment with Dr. Camacho [...] 1 tablet by mouth once daily. Ipratropium What Cheer (ATROVENT) 21 mcg (0.03 %) nasal spray [...] 1 Each by INTRAUTERINE route as directed. Eorwddqa-Ip-Fft-Fe-FA tab Take 1 tablet by mouth once [...] Age of Onset Alcohol/Drug Mother Heart Father DC Cancer Father PANCREATIC CANCER Diabetes Father Coronary [...] for screening mammogram to be sent to [facility]. (See patient after visit summary for additional instructions to patient) Ivette Grimes MD Recording using [employer] software for draft documentation of the visit was discussed with the patient/authorized account development representative; all questions welcomed and answered. Patient/authorized account development representative agreed to proceed documented in this encounterUniversity Hospitals Ahu[facility]08-04-2025 Instructions* Patient Instructions* Ivette Grimes [...] with Dr. Quiroga on June 23 at [facility]. - Keep your neurology appointment on [...] any new concerns arise. documented in this encounterUniversity Hospitals A[facility] Center06-04-2025 Telephone encounter Note * Telephone Encounter - Ivette Grimes MD - 04/07/2025 3:34 PM EDT Requests refill. [facility]06-04-2025 Miscellaneous Notes* Telephone Encounter - Ivette Grimes MD - 04/07/2025 3:34 PM EDT Requests refill. documented in this encounterUniversity Hospitals [facility]hu[facility]05-29-2025 Telephone encounter Note * Telephone Encounter - Nakia Caraballo RN - 04/01/2025 12:45 PM EDT Botox approved until 11/03/25. Patient and scheduling made aware. She is a patient of Fatuma's butdue to her being out on maternity leave, patient will need scheduled with another FÉLIX. Saw Amanda on03/09/25. Latonia Caraballo RN, BSN [facility] Work Phone: [phone] Miscellaneous Notes* Telephone Encounter - Nakia Caraballo RN - 04/01/2025 12:45 PM EDT Botox approved until 11/03/25. Patient and scheduling made aware. She is a patient of [facility]uma's butdue to her being out on maternity leave, patient will need scheduled with another FÉLIX. Saw Amanda on03/09/25. Latonia Caraballo RN, BSN documented in this encounterUniversity Hospitals [facility]hu[facility]05-16-2025 Telephone encounter Note * Telephone Encounter - Nakia Caraballo RN - 03/19/2025 3:14 PM EDT Botox referral sent to pharmacy as patient would like to restart botox. Last botox 09/03/24. Latonia Caraballo RN, BSN [facility] Work Phone: [phone]) [phone] Miscellaneous Notes* Telephone Encounter - Nakia Caraballo RN - 03/19/2025 3:14 PM EDT Botox referral sent to pharmacy as patient would like to restart botox. Last botox 09/03/24. Latonia Caraballo RN, BSN documented in this encounterUniversity Hospitals Ahu[facility] Center05-09-2025 Radiology Diagnostic study note [facility] Imaging Services [address] [place] [id number] Shoulder min 2 Views MR#: [id number] Acct: [id number] Name: TORI GRAY Rep #: [id number] : 1980 F 44 From: Kaushik Newsome MD PCP: Dr. Ivette Grimes MD Status: GERMAIN CURTIS Study:Shoulder min 2 Views Date of Exam: 03/11/25 Exam# [id number] Ordering Dr: Brett Quiroga MD PROCEDURE: SHOULDER [...] Quiroga MD; Dr. 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: Signed [facility]05-06-2025 Evaluation note* Diagnosis Onset Date Resolution Status Admit Date Segmental and somatic dysfunction of cervical region acute [facility] 2024 9:17am Segmental and somatic dysfunction of lumbar region acute March 09, 2025 9:17am Segmental and somatic dysfunction of pelvic region acute March 09, 2025 9:17am Segmental and somatic dysfunction of thoracic region acute [facility] 2024 9:17am Disc displacement, lumbar chronic March 09, 2025 9:17am Left shoulder pain inactive March 222024 8:58am Back pain acute March 22, 2025 9:33am Segmental and somatic dysfunction of cervical region acute [facility] 2024 9:33am Segmental and somatic dysfunction of lumbar region acute March 22, 2025 9:33am Segmental and somatic dysfunction of pelvic region acute March 22, 2025 9:33am Segmental and somatic dysfunction of thoracic region acute [facility] 2024 9:33am Segmental and somatic dysfunction of [...] displacement, lumbar chronic June 17, 2025 9:27am [facility] [employer] Work Phone: [phone] Evaluation note* Diagnosis Onset Date Resolution Status [...] and somatic dysfunction of cervical region acute [facility] 2024 9:33am Segmental and somatic dysfunction of [...] left shoulder acute June 23, 2025 6:20am [facility] Work Phone: [phone] Evaluation note* Diagnosis Onset Date Resolution Status Admit Date Segmental and somatic dysfunction of cervical region acute [facility] 2024 9:17am Segmental and somatic dysfunction of lumbar region acute March 09, 2025 9:17am Segmental and somatic dysfunction of pelvic region acute March 09, 2025 9:17am Segmental and somatic dysfunction of thoracic region acute [facility] 2024 9:17am Disc displacement, lumbar chronic March 09, 2025 9:17am Left shoulder pain inactive March 222024 8:58am Back pain acute March 22, 2025 9:33am Segmental and somatic dysfunction of cervical region acute [facility] 2024 9:33am Segmental and somatic dysfunction of lumbar region acute March 22, 2025 9:33am Segmental and somatic dysfunction of pelvic region acute March 22, 2025 9:33am Segmental and somatic dysfunction of thoracic region acute [facility] 2024 9:33am Segmental and somatic dysfunction of [...] left shoulder acute June 25, 2025 9:12am [facility] Work Phone: [phone] History of Present illness Narrative* Amanda Artaega PA-C - 03/09/2025 7:25 AM EDT Images from the original note were not included. [facility] New Patient Evaluation This [...] visit. Either the patient or their legal account development representative has been informed of the risks and benefits of -- and alternatives to -- treatment through a remote evaluation andconsents to proceed with the evaluation remotely. Confirmed verbally that the patient currently located in the [facility].Yes Confirmed verbally that the patient consents to being seen virtually today.Yes Confirmed verbally that the patient consents to being seen by a physician reference assistant.Yes CHIEF COMPLAINT: Botox for migraines Tori [...] 1 tablet by mouth once daily. Ipratropium What Cheer (ATROVENT) 21 mcg (0.03 %) nasal spray [...] 1 Each by INTRAUTERINE route as directed. [place]-3 Fatty Acids (FISH OIL) 500 mg cap Take 1 capsule by mouth once daily. blood sugar diagnostic (BLOOD GLUCOSE TEST) test strip Test blood sugar(s) 1 times daily. Dx: Type 2 DM - Controlled E11.9 Insulin: Yes Lancets lancets Test blood sugar(s) 1 times daily. Dx: Type 2 DM - Controlled E11.9 Insulin: No Vikyjyqd-Rs-Svg-Fe-FA tab Take 1 tablet by mouth once [...] which included preparing to see the patient, ubbj-ge-bsaw patient care, completing clinical documentation, obtaining and/or [...] (Sleep study not recommended) documented in this encounterUniversity Hospitals Ahuja [facility] Center05-06-2025 NoteHNO ID: [id number] Author: AMANDA ARTEAGA PA-C Service: ? Author Type: Physician Guillotine Trimmer Type: Progress Notes Filed: 03/10/2025 07:59 Note Text: [facility] New Patient Evaluation This [...] visit. Either the patient or their legal account development representative has been informed of the risks and benefits of -- and alternatives to -- treatment through a remote evaluation and consents to proceed with the evaluation remotely. Confirmed verbally that the patient currently located in the state of [place].Yes Confirmed verbally that the patient consents to being seen virtually today.Yes Confirmed verbally that the patient consents to being seen by a physician reference assistant.Yes CHIEF COMPLAINT: Botox for migraines Tori [...] time -Irma 15 a (more content not included)...[facility]05-01-2025 Telephone encounter Note* Telephone Encounter - Beata Pitts LPN - 03/04/2025 2:41 PM EDT Tried contacting patient to confirm that she just wants to discuss botox rather than get injectionsfor her upcoming appt as it's a virtual visit, per [place]. Beata Pitts LPN March 04, 2025 2:42 PM [facility]05-01-2025 Miscellaneous Notes* Telephone Encounter - Beata Pitts LPN - 03/04/2025 2:41 PM EDT Tried contacting patient to confirm that she just wants to discuss botox rather than get injectionsfor her upcoming appt as it's a virtual visit, per [place]. Beata Pitts LPN March 04, 2025 2:42 PM documented in this encounterUniversity Hospitals Ahu[facility] Center04-29-2025 History of Present illness Narrative* [...] visit. Either the patient or their legal account development representative has been informed of the risks [...] like me to send over referral at [facility]. They specialize in shoulders. Seen at optometry at [facility] for dilated vision check on February [...] 1 tablet by mouth once daily. Ipratropium What Cheer (ATROVENT) 21 mcg (0.03 %) nasal spray [...] 1 Each by INTRAUTERINE route as directed. [place]-3 Fatty Acids (FISH OIL) 500 mg cap Take 1 capsule by mouth once daily. blood sugar diagnostic (BLOOD GLUCOSE TEST) test strip Test blood sugar(s) 1 times daily. Dx: Type 2 DM - Controlled E11.9 Insulin: Yes Lancets lancets Test blood sugar(s) 1 times daily. Dx: Type 2 DM - Controlled E11.9 Insulin: No Suxjxurd-Ty-Plr-Fe-FA tab Take 1 tablet by mouth once [...] Age of Onset Alcohol/Drug Mother Heart Father DC Cancer Father PANCREATIC CANCER Diabetes Father Coronary [...] ORTHOPAEDICS Ivette Grimes MD documented in this encounterUniversity Hospitals Ahuja [facility] Center04-29-2025 NoteHNO ID: [id number] Author: IVETTE GRIMES MD Service: ? Author [...] visit. Either the patient or their legal account development representative has been informed of the risks [...] like me to send over referral at [facility]. They specialize in shoulders. Seen at optometry at [facility] for dilated vision check on February [...] 1 tablet by mouth once daily. Ipratropium What Cheer (ATROVENT) 21 mcg (0.03 %) nasal spray [...] 1 Each by INTRAUTERINE route as directed. [place]-3 Fatty Acids (FISH OIL) 500 mg cap Take 1 capsule by mouth once daily. blood sugar diagnostic (BLOOD GLUCOSE TEST) test strip Test blood sugar(s) 1 times daily. Dx: Type 2 DM - Controlled E11.9 Insulin: Yes Lancets lancets Test blood sugar(s) 1 times daily. Dx: Type 2 DM - Controlled E11.9 Insulin: No Ttykjqur-Nj-Pak-Fe-FA tab Take 1 tablet by mouth once [...] Age of Onset Alcohol/Drug Mother Heart Father DC Cancer Father PANCREATIC CANCER Diabetes Father Coronary Artery Disease Father Anxiety disorder Sister Depression Sister Depression Brother Cancer Maternal Grandmother LUNG CANCER Diabetes Maternal Grandfather Heart Paternal Grandmother TRIPLE BYPASS SURGERY Social History Tobacco Use Smoking status: Never Smokeless tobacco: Never Vaping Use Vaping status: Never Used Substance Use Topics Alcohol use (more content not included)...[facility]04-03-2025 Evaluation note* Diagnosis Onset Date [...] displacement, lumbar chronic March 09, 2025 9:17am [facility] Work Phone: [phone] Evaluation note* Diagnosis Onset Date Resolution Status [...] Left shoulder pain inactive March 222024 8:58am [facility] [employer] Work Phone: [phone]) [phone] Evaluation note* Diagnosis Onset Date Resolution Status [...] and somatic dysfunction of cervical region acute [facility] 2024 9:17am Segmental and somatic dysfunction of [...] and somatic dysfunction of cervical region acute [facility] 2024 9:33am Segmental and somatic dysfunction of lumbar region acute March 22, 2025 9:33am Segmental and somatic dysfunction of pelvic region acute March 22, 2025 9:33am Segmental and somatic dysfunction of thoracic region acute [facility] 2024 9:33am [facility] [employer] Work Phone: [phone] Evaluation note* Diagnosis Onset Date Resolution Status [...] and somatic dysfunction of cervical region acute [facility] 2024 9:33am Segmental and somatic dysfunction of lumbar region acute March 22, 2025 9:33am Segmental and somatic dysfunction of pelvic region acute March 22, 2025 9:33am Segmental and somatic dysfunction of thoracic region acute [facility] 2024 9:33am Segmental and somatic dysfunction of [...] region suspected April 05, 2025 1 0:22am [facility] Work Phone: [phone] Evaluation note* Diagnosis Onset Date Resolution Status [...] displacement, lumbar chronic April 21, 2025 9:49am [facility] Work Phone: [phone]) [phone] Evaluation note* Diagnosis Onset Date Resolution Status [...] Left shoulder pain inactive May 062024 10:02am [facility] Work Phone: [phone]) [phone] Evaluation note* Diagnosis Onset Date Resolution Status [...] and somatic dysfunction of thoracic region acute [facility] 2024 9:17am Disc displacement, lumbar chronic March 09, 2025 9:17am Left shoulder pain inactive March 222024 8:58am Back pain acute March 22, 2025 9:33am Segmental and somatic dysfunction of cervical region acute [facility] 2024 9:33am Segmental and somatic dysfunction of lumbar region acute March 22, 2025 9:33am Segmental and somatic dysfunction of pelvic region acute March 22, 2025 9:33am Segmental and somatic dysfunction of thoracic region acute [facility] 2024 9:33am Segmental and somatic dysfunction of [...] displacement, lumbar chronic June 01, 2025 10:30am [place] [facility] Work Phone: [phone] Telephone encounter Note* Telephone Encounter - Evon [...] her know when it is ready for sweet pickled fruit maker. [facility]04-02-2025 Miscellaneous Notes* Telephone Encounter - [...] her know when it is ready for sweet pickled fruit maker. * Telephone Encounter - Mirna Santos MA - 02/01/2025 2:42 PM EDT Faxed form completed to [employer] with A1C and office note Mirna Santos MA * Telephone Encounter - Evon Philippe LPN - 01/29/2025 8:31 AM EDT [employer] RESPONSE. [facility] does not handle this review. Please visit [email or web address] to start a prior authorization or fax information to [phone]. Please include all supporting chart notes. You may contact [employer] at [phone]. WILL FAX PA REQUEST TO NUMBER PROVIDED. [...] needs PA due to dose change). Provider: [employer] Name: [facility] [employer] Phone number: [phone] Patient ID number: [id number] Pharmacy Name: [facility] Pharmacy Telephone number: [phone] documented in this encounterUniversity Hospitals Ahu[facility] Center03-31-2025 Telephone encounter Note * Telephone Encounter - Mirna Santos MA - 02/01/2025 2:42 PM EDT Faxed form completed to [employer] with A1C and office note Mirna Santos MA [facility]03-28-2025 Telephone encounter Note* Telephone Encounter - vEon Philippe LPN - 01/29/2025 8:31 AM EDT [employer] RESPONSE. [employer] does not handle this review. Please visit [email or web address] to start a prior authorization or fax information to [phone]. Please include all supporting chart notes. You may contact [employer] at [phone]. WILL FAX PA REQUEST TO NUMBER PROVIDED. Records faxed to for PA. [facility]03-27-2025 Telephone encounter Note* Telephone Encounter - Evon Philippe LPN - 01/28/2025 4:56 PM EDT Unable to complete electronically. Will try on covermymeds [facility]03-27-2025 Telephone encounter Note* Telephone Encounter - Evon Philippe LPN - 01/28/2025 4:55 PM EDT Electronic PA requested. [facility]03-27-2025 Telephone encounter Note* Telephone Encounter - Krystle Barnett, PEPE - 01/28/2025 4:51 PM EDT Prior Authorization Documentation Prior authorization requested for the following medication: Medication: Ozempic 1 mg (all though PA done in Aug 2024 and approved until Aug 2025 this needs PA due to dose change). Provider: [employer] [facility] [employer] Phone number: [phone] Patient ID number: [id number] Pharmacy Name: [facility] Pharmacy Pharmacy Telephone number: [phone] [facility]03-27-2025 Telephone encounter Note* Telephone Encounter - Dennise Robles MA - 01/28/2025 8:45 AM EDT Scan on 01/28/2025 8:29 AM by ProviderSherry PA-C: BMP Scan on 01/28/2025 8:17 AM by ProviderSherry PA-C: HGB A1C [facility]03-27-2025 Miscellaneous Notes* Telephone Encounter - Dennise Robles MA - 01/28/2025 8:45 AM EDT Scan on 01/28/2025 8:29 AM by ProviderSherry PA-C: BMP Scan on 01/28/2025 8:17 AM by Sherry Mccallum PA-C: HGB A1C documented in this encounterUniversity Hospitals [facility]03-21-2025 NoteHNO ID: [id number] Author: IVETTE GRIMES MD Service: ? Author [...] 1 tablet by mouth once daily. Ipratropium What Cheer (ATROVENT) 21 mcg (0.03 %) nasal spray [...] 1 Each by INTRAUTERINE route as directed. [place]-3 Fatty Acids (FISH OIL) 500 mg cap Take 1 capsule by mouth once daily. blood sugar diagnostic (BLOOD GLUCOSE TEST) test strip Test blood sugar(s) 1 times daily. Dx: Type 2 DM - Controlled E11.9 Insulin: Yes Lancets lancets Test blood sugar(s) 1 times daily. Dx: Type 2 DM - Controlled E11.9 Insulin: No Sngtfyco-Ov-Hmt-Fe-FA tab Take 1 tablet by mouth once [...] Age of Onset Alcohol/Drug Mother Heart Father DC Cancer Father PANCREATIC CANCER Diabetes Father Coronary [...] Wt Readings: Date: Wt: (more content not included)...[facility]03-21-2025 History of Present illness Narrative* [...] 1 tablet by mouth once daily. Ipratropium What Cheer (ATROVENT) 21 mcg (0.03 %) nasal spray [...] 1 Each by INTRAUTERINE route as directed. [place]-3 Fatty Acids (FISH OIL) 500 mg cap Take 1 capsule by mouth once daily. blood sugar diagnostic (BLOOD GLUCOSE TEST) test strip Test blood sugar(s) 1 times daily. Dx: Type 2 DM - Controlled E11.9 Insulin: Yes Lancets lancets Test blood sugar(s) 1 times daily. Dx: Type 2 DM - Controlled E11.9 Insulin: No Zooujnmx-Nt-Scq-Fe-FA tab Take 1 tablet by mouth once [...] Age of Onset Alcohol/Drug Mother Heart Father DC Cancer Father PANCREATIC CANCER Diabetes Father Coronary [...] six months and prn. documented in this encounterUniversity Hospitals [facility]02-21-2025 Telephone encounter Note * Telephone [...] Storey LPN December 25, 2024 8:58 AM [facility]02-21-2025 Miscellaneous Notes* Telephone Encounter - [...] tablet by mouth two times a day. Nrimala Storey LPN December 25, 2024 8:58 AM documented in this encounterUniversity Hospitals [facility]02-17-2025 Telephone encounter Note * Telephone Encounter - Jumana Harrell LPN - 12/21/2024 3:19 PM EST Patient notified of results, verbalizes understanding of instructions. Pt stated she is about 80% better with the z-pack and cough drops. Will call is get worse again. Jumana Harrell LPN [facility]02-17-2025 Miscellaneous Notes* Telephone Encounter - [...] zpack? Jenni Martínez APRN.GABRIELA documented in this encounterUniversity Hospitals A[facility]02-17-2025 Telephone encounter Note * Telephone [...] improved with the zpack? Jenni Martínez APRN.GABRIELA [facility] Work Phone: 1(135) 260-538202-07-2025 Telephone encounter Note* Telephone Encounter - Jumana Harrell LPN - 12/11/2024 2:24 PM EST Patient notified of results, verbalizes understanding of instructions. Jumana Harrell LPN [facility]02-07-2025 Miscellaneous Notes* Telephone Encounter - Jumana Harrell LPN - 12/11/2024 2:24 PM EST Patient notified of results, verbalizes understanding of instructions. Jumana Harrell LPN * Telephone Encounter - Jenni Martínez APRN.CNP - 12/11/2024 2:16 PM EST Can you please call the patient and let her know that I am still waiting for x- ray results from [facility]. I went ahead and sent [...] Provider: JENNI MARTÍNEZ APRN.CNP documented in this encounterUniversity Hospitals [facility]02-07-2025 Telephone encounter Note * Telephone Encounter - Jenni Martínez APRN.CNP - 12/11/2024 2:16 PM EST Can you please call the patient and let her know that I am still waiting for x- ray results from [facility]. I went ahead and sent [...] until gone. Authorizing Provider: JENNI MARTÍNEZ APRN.CNP [facility]02-07-2025 Instructions* Patient Instructions* Jenni Martínez APRN.CNP - 12/11/2024 11:32 AM EST Get chest xray completed today May use Codeine cough syrup as needed for cough Stay well hydrated Follow up pending test results. documented in this encounterUniversity Hospitals [facility]02-07-2025 History of Present illness Narrative* [...] 1 tablet by mouth once daily. Ipratropium What Cheer (ATROVENT) 21 mcg (0.03 %) nasal spray [...] 1 Each by INTRAUTERINE route as directed. [place]-3 Fatty Acids (FISH OIL) 500 mg cap Take 1 capsule by mouth once daily. blood sugar diagnostic (BLOOD GLUCOSE TEST) test strip Test blood sugar(s) 1 times daily. Dx: Type 2 DM - Controlled E11.9 Insulin: Yes Lancets lancets Test blood sugar(s) 1 times daily. Dx: Type 2 DM - Controlled E11.9 Insulin: No Fkijewmf-Kj-Uly-Fe-FA tab Take 1 tablet by mouth once daily. No current facility-administered medications for this visit. FAMILY HISTORY Problem Relation Age of Onset Alcohol/Drug Mother Heart Father DC Cancer Father PANCREATIC CANCER Diabetes Father Coronary [...] discussed and patient voices understanding. Jenni Martínez APRN.EBD TEACHER This note was partially generated using [employer] recognition system. Note was reviewed for accuracy. There may be minor misspellings or grammar miscues with [employer] voice recognition. documented in this encounterUniversity Hospitals A[facility] Center02-07-2025 NoteHNO ID: [id number] Author: JENNI MARTÍNEZ APRN.CNP Service: ? Author [...] 1 tablet by mouth once daily. Ipratropium What Cheer (ATROVENT) 21 mcg (0.03 %) nasal spray [...] 1 Each by INTRAUTERINE route as directed. [place]-3 Fatty Acids (FISH OIL) 500 mg cap Take 1 capsule by mouth once daily. blood sugar diagnostic (BLOOD GLUCOSE TEST) test strip Test blood sugar(s) 1 times daily. Dx: Type 2 DM - Controlled E11.9 Insulin: Yes Lancets lancets Test blood sugar(s) 1 times daily. Dx: Type 2 DM - Controlled E11.9 Insulin: No Ytzvgnju-Mh-Krj-Fe-FA tab Take 1 tablet by mouth once daily. No current facility-administered medications for this visit. FAMILY HISTORY Problem Relation Age of Onset Alcohol/Drug Mother Heart Father DC Cancer Father PANCREATIC CANCER Diabetes Father Coronary [...] : No history o (more content not included)...[facility] 12-11-2024 Telephone encounter Note* Telephone Encounter - Brittney Meredith RN - 12/11/2024 8:17 AM EST Patient calling to make appt for evaluation of respiratory sx's that began approx 4 weeks ago. Pt states she feels she may have bronchitis or pneumonia. States she was at [facility] ER last month due to [...] evaluation of respiratory sx's. Brittney Meredith RN [facility]02-07-2025 Miscellaneous Notes* Telephone Encounter - Brittney Meredith RN - 12/11/2024 8:17 AM EST Patient calling to make appt for evaluation of respiratory sx's that began approx 4 weeks ago. Pt states she feels she may have bronchitis or pneumonia. States she was at [facility] ER last month due to [...] sx's. Brittney Meredith RN documented in this encounterUniversity Hospitals [facility]01-22-2025 Telephone encounter Note * Telephone [...] Eric LPN November 25, 2024 2:23 PM [facility]01-22-2025 Miscellaneous Notes* Telephone Encounter - [...] Thank you. Stephanie Parsons. documented in this encounterUniversity Hospitals Ahu[facility]01-22-2025 Telephone encounter Note * Telephone [...] found Please advise. Thank you. Stephanie Parsons. [facility]01-20-2025 Telephone encounter Note* Telephone Encounter - Judith [...] Judith Cueto November 23, 2024 12:34 PM [facility]01-20-2025 Miscellaneous Notes* Telephone Encounter - Judith Napier [...] 23, 2024 12:34 PM documented in this encounterUniversity Hospitals Ahu[facility] Center01-14-2025 NotePatient Outreach (FAMPWS) TORI GRAY ([id number]) 1980 F Date Time Provider Department [facility], [facility] [...] for screening mammogram for breast cancer [Z12.31] Order(s):[facility] [[id number]] Order #: [id number] FUTURE Prescriptions as of 12/18/2024 - potassium [...] tablet by mouth once daily. - Ipratropium What Cheer (ATROVENT) 21 mcg (0.03 %) nasal spray [...] Each by INTRAUTERINE route as directed. - [place]-3 Fatty Acids (FISH OIL) 500 mg cap Take 1 capsule by mouth once daily. - blood sugar diagnostic (BLOOD GLUCOSE TEST) test strip Test blood sugar(s) 1 times daily. Dx: Type 2 DM - Controlled E11.9 Insulin: Yes - Lancets lancets Test blood sugar(s) 1 times daily. Dx: Type 2 DM - Controlled E11.9 Insulin: No - Mfabwxep-Kp-Pvf-Fe-FA tab Take 1 tablet by mouth once [...] 05/06/2009 01/23/2010 Routine general medical examination at [facility]*01/23/2010 12/06/2012 Class: Chronic Routine gynecological examination [Z01.419] 01/23/2010 02/22/2014 Class: Chronic Morbid Obesity [E66.01] 01/23/2010 Lumbar Disc Disorder [M51.9] 02/16/2010 Routine general medical examination at [facility]*12/06/2012 02/22/2014 Anxiety [F41.9] 06/07/2014 Type [...] type 2 diabetes m (more content not included)...[facility]12-23-2024 Telephone encounter Note* Telephone Encounter [...] France RN October 26, 2024 7:53 PM [facility]12-23-2024 Miscellaneous Notes* Telephone Encounter - [...] 26, 2024 7:53 PM documented in this encounterUniversity Hospitals [facility]12-16-2024 History of Present illness Narrative* [...] visit. Either the patient or their legal account development representative has been informed of the risks [...] hours asneeded for wheezing/shortness of breath. Ipratropium What Cheer (ATROVENT) 21 mcg (0.03 %) nasal spray [...] 1 Each by INTRAUTERINE route as directed. [place]-3 Fatty Acids (FISH OIL) 500 mg cap Take 1 capsule by mouth once daily. blood sugar diagnostic (BLOOD GLUCOSE TEST) test strip Test blood sugar(s) 1 times daily. Dx: Type 2 DM - Controlled E11.9 Insulin: Yes Lancets lancets Test blood sugar(s) 1 times daily. Dx: Type 2 DM - Controlled E11.9 Insulin: No Kdrzuydy-Hg-Rzt-Fe-FA tab Take 1 tablet by mouth once [...] Age of Onset Alcohol/Drug Mother Heart Father DC Cancer Father PANCREATIC CANCER Diabetes Father Coronary [...] TABLET Ivette Grimes MD documented in this encounterUniversity Hospitals [facility]12-16-2024 NoteHNO ID: [id number] Author: IVETTE GRIMES MD Service: ? Author [...] visit. Either the patient or their legal account development representative has been informed of the risks [...] as needed for wheezing/shortness of breath. Ipratropium What Cheer (ATROVENT) 21 mcg (0.03 %) nasal spray [...] 1 Each by INTRAUTERINE route as directed. [place]-3 Fatty Acids (FISH OIL) 500 mg cap Take 1 capsule by mouth once daily. blood sugar diagnostic (BLOOD GLUCOSE TEST) test strip Test blood sugar(s) 1 times daily. Dx: Type 2 DM - Controlled E11.9 Insulin: Yes Lancets lancets Test blood sugar(s) 1 times daily. Dx: Type 2 DM - Controlled E11.9 Insulin: No Eaedcclv-Sl-Iml-Fe-FA tab Take 1 tablet by mouth once [...] Age of Onset Alcohol/Drug Mother Heart Father DC Cancer Father PANCREATIC CANCER Diabetes Father Coronary [...] wheeze. No pallor. ASSESSM (more content not included)...[facility]12-16-2024 Evaluation note* Diagnosis Onset Date Resolution Status Admit Date Segmental and somatic dysfunction of lumbar region acute Oct 8:57am Segmental and somatic dysfunction of pelvic region acute Oct 8:57am Segmental and somatic dysfunction of thoracic region acute October 19, 024 8:57am Disc displacement, lumbar chronic October 19, 2024 8:57am [facility] Work Phone: 1(546) 274-750911-21-2024 History of Present illness Narrative* Ivette Grimes [...] visit. Either the patient or their legal account development representative has been informed of the risks [...] No increased caffeine. Sugars are increased recently [phone]=667's. Not coming down as much as it [...] hours asneeded for wheezing/shortness of breath. Ipratropium What Cheer (ATROVENT) 21 mcg (0.03 %) nasal spray [...] 1 Each by INTRAUTERINE route as directed. [place]-3 Fatty Acids (FISH OIL) 500 mg cap Take 1 capsule by mouth once daily. blood sugar diagnostic (BLOOD GLUCOSE TEST) test strip Test blood sugar(s) 1 times daily. Dx: Type 2 DM - Controlled E11.9 Insulin: Yes Lancets lancets Test blood sugar(s) 1 times daily. Dx: Type 2 DM - Controlled E11.9 Insulin: No Wdohviqv-Ip-Qdo-Fe-FA tab Take 1 tablet by mouth once [...] Age of Onset Alcohol/Drug Mother Heart Father DC Cancer Father PANCREATIC CANCER Diabetes Father Coronary [...] weeks Ivette Grimes MD documented in this encounterUniversity Hospitals [facility] Center11-21-2024 NoteHNO ID: [id number] Author: IVETTE GRIMES MD Service: ? Author [...] visit. Either the patient or their legal account development representative has been informed of the risks [...] No increased caffeine. Sugars are increased recently [phone]'s. Not coming down as much as it [...] as needed for wheezing/shortness of breath. Ipratropium What Cheer (ATROVENT) 21 mcg (0.03 %) nasal spray [...] 1 Each by INTRAUTERINE route as directed. [place]-3 Fatty Acids (FISH OIL) 500 mg cap Take 1 capsule by mouth once daily. blood sugar diagnostic (BLOOD GLUCOSE TEST) test strip Test blood sugar(s) 1 times daily. Dx: Type 2 DM - Controlled E11.9 Insulin: Yes Lancets lancets Test blood sugar(s) 1 times daily. Dx: Type 2 DM - Controlled E11.9 Insulin: No Qgpznxwb-Em-Nef-Fe-FA tab Take 1 tablet by mouth once [...] Age of Onset Alcohol/Drug Mother Heart Father DC Cancer Father PANCREATIC CANCER Diabetes Father Coronary [...] Wt Readings: Date: Wt: (more content not included)...[facility]10-31-2024 Instructions* Patient Instructions* Fatuma Beckford [...] office for further instructions. documented in this encounterUniversity Hospitals [facility]10-31-2024 NoteHNO ID: [id number] Author: FATUMA BECKFORD PA-C Service: ? Author Type: Physician Guillotine Trimmer Type: Progress Notes Filed: 09/03/2024 13:30 Note [...] for migraine Informed Consent Consent Obtained: Written [place] Protocol A moment to CARE was completed [...] applicable Written Consent Obtained: Written LOT #: [id number] Expiration Date: Month: : 2025 Second vial: LOT #: [id number] Expiration Date: Month: Year: 2025 Injection Sites Left (Units) Left (Sites) Right (Units) Right (Sites) TOTAL (Units) Research Program Assistant 5 1 5 1 10 Procerus Units: [...] Estimates 5 migraines since march. [facility] History of Present illness Narrative* Fatuma Beckford [...] for migraine Informed Consent Consent Obtained: Written Sheridan Protocol A moment to CARE was completed [...] applicable Written Consent Obtained: Written LOT #: [id number] Expiration Date: Month: 12 Year: 2025 Second vial: LOT #: [id number] Expiration Date: Month: Year: 2025 Injection Sites Left (Units) Left (Sites) Right (Units) Right (Sites) TOTAL (Units) Research Program Assistant 5 1 5 1 10 Procerus Units: [...] march. Fatuma Beckford PA-C documented in this encounterUniversity Hospitals [facility]10-29-2024 Telephone encounter Note * Telephone Encounter - Rebecca Baker - 09/01/2024 4:08 PM EDT Tori was Ok'ed to get her botox appointment moved into a new patient time due to frequent rescheduling of this visit. She is now scheduled for 09/03. She has also requested a refill of her Nurtec ODT medication. Please adviseRebecca [facility]10-29-2024 Miscellaneous Notes* Telephone Encounter - Rebecca Baker - 09/01/2024 4:08 PM EDT Tori was Ok'ed to get her botox appointment moved into a new patient time due to frequent rescheduling of this visit. She is now scheduled for 09/03. She has also requested a refill of her Nurtec ODT medication. Please adviseRebecca documented in this encounterUniversity Hospitals [facility] Center10-29-2024 Telephone encounter Note * Telephone [...] with this date and time. Rebecca Baker [facility]10-29-2024 Miscellaneous Notes* Telephone Encounter - [...] Nieto - 09/01/2024 3:30 PM EDT 09/10 [facility] appt rescheduled to 10/08 and put on wait list. Provider will be out of office. 1st attempt to notify pt, sent MC message. documented in this encounterUniversity Hospitals [facility] Center10-29-2024 Telephone encounter Note * Telephone Encounter - Tala Wilson - 09/01/2024 3:54 PM EDT Patient read mychart [facility]10-29-2024 Telephone encounter Note* Telephone Encounter - Steph Nieto - 09/01/2024 3:30 PM EDT 09/10 [facility] appt rescheduled to 10/08 and put on wait list. Provider will be out of office. 1st attempt to notify pt, sent MC message. [facility]10-08-2024 Telephone encounter Note* Telephone Encounter - Steph Nieto - 08/11/2024 3:58 PM EDT Pt read MC message. [facility]10-08-2024 Miscellaneous Notes* Telephone Encounter - Steph Nieto - 08/11/2024 3:58 PM EDT Pt read MC message. * Telephone Encounter - Steph Nieto - 08/11/2024 3:[address] [facility] appt on 09/10 moved to 3 PM. 1st attempt to notify pt, sent MC message. documented in this encounterUniversity Hospitals [facility] Center10-08-2024 Telephone encounter Note * Telephone Encounter - Steph Nieto - 08/11/2024 3:[address] [facility] appt on 09/10 moved to 3 PM. 1st attempt to notify pt, sent MC message. [facility]10-08-2024 Telephone encounter Note* Telephone Encounter [...] Salmon MA August 11, 2024 11:06 AM [facility]10-08-2024 Miscellaneous Notes* Telephone Encounter - [...] 11, 2024 11:06 AM documented in this encounterUniversity Hospitals Ahu[facility] Center10-03-2024 Telephone encounter Note * Telephone Encounter - Dennise Robles MA - 08/06/2024 10:38 AM EDT APPROVAL. [employer]. EOC # [id number] VALIDITY DATES 08/06/24-08/05/25 Pharmacy informed. Dennise Robles MA [facility]10-03-2024 Miscellaneous Notes* Telephone Encounter - Dennise Robles MA - 08/06/2024 10:38 AM EDT APPROVAL. SAGE. EOC # [id number] VALIDITY DATES 08/06/24-08/05/25 Pharmacy informed. Dennise Robles MA documented in this encounterUniversity Hospitals Ahuja Medical Center10-02-2024 NoteHNO ID: [id number] Author: IVETTE GRIMES MD Service: ? 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 Excited for this because will not be as physical. Reviewed labs recently done at [facility]. A1c was 6.7. ldl was [...] as needed for wheezing/shortness of breath. Ipratropium What Cheer (ATROVENT) 21 mcg (0.03 %) nasal spray [...] 1 Each by INTRAUTERINE route as directed. [place]-3 Fatty Acids (FISH OIL) 500 mg cap Take 1 capsule by mouth once daily. blood sugar diagnostic (BLOOD GLUCOSE TEST) test strip Test blood sugar(s) 1 times daily. Dx: Type 2 DM - Controlled E11.9 Insulin: Yes Lancets lancets Test blood sugar(s) 1 times daily. 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 Excited for this because will not be as physical. Reviewed labs recently done at [facility]. A1c was 6.7. ldl was [...] hours asneeded for wheezing/shortness of breath. Ipratropium What Cheer (ATROVENT) 21 mcg (0.03 %) nasal spray [...] 1 Each by INTRAUTERINE route as directed. [place]-3 Fatty Acids (FISH OIL) 500 mg cap Take 1 capsule by mouth once daily. blood sugar diagnostic (BLOOD GLUCOSE TEST) test strip Test blood sugar(s) 1 times daily. Dx: Type 2 DM - Controlled E11.9 Insulin: Yes Lancets lancets Test blood sugar(s) 1 times daily. Dx: Type 2 DM - Controlled E11.9 Insulin: No Wucjtfra-Qw-Lwf-Fe-FA tab Take 1 tablet by mouth once [...] Age of Onset Alcohol/Drug Mother Heart Father DC Cancer Father PANCREATIC CANCER Diabetes Father Coronary [...] stable. Ivette Grimes MD documented in this encounterUniversity Hospitals Ahuja [facility] Center09-23-2024 Telephone encounter Note * Telephone [...] Yoon LPN July 27, 2024 8:45 AM [facility]09-23-2024 Miscellaneous Notes* Telephone Encounter - [...] 27, 2024 8:45 AM documented in this encounterUniversity Hospitals Ahuja [facility] Center09-17-2024 Telephone encounter Note * Telephone Encounter - Ingrid Salmon MA - 07/21/2024 3:02 PM EDT Pt notified. Requested to have order faxed to [facility]. Order faxed. Ingrid Salmon MA [facility]09-17-2024 Miscellaneous Notes* Telephone Encounter - Ingrid Salmon MA - 07/21/2024 3:02 PM EDT Pt notified. Requested to have order faxed to [facility]. Order faxed. Ingrid Salmon MA [...] advise, Gale Bower RN documented in this encounterUniversity Hospitals Ahuja [facility] Center09-17-2024 Telephone encounter Note * Telephone Encounter - Ivette Grimes MD - 07/21/2024 2:18 PM EDT ordered [facility]09-17-2024 Telephone encounter Note* Telephone Encounter - Gale Bower RN - 07/21/2024 1:45 PM EDT Patient calls and states that cough is not getting any better. Patient states that Dr. Grimes had told her that if cough had not improved that provider wanted to order her a chest xray. Please review and advise, Gale Bower RN [facility]09-06-2024 Telephone encounter Note* Telephone Encounter - Nirmala Storey LPN - 07/10/2024 11:16 AM EDT Left detailed message for patient. [facility]09-06-2024 Miscellaneous Notes* Telephone Encounter - [...] advise, Gale Bower RN documented in this encounterUniversity Hospitals [facility]hu[facility] Center09-06-2024 Telephone encounter Note * Telephone Encounter - Ivette Grimes MD - 07/10/2024 11:11 AM EDT Rx sent for farxiga. Lets try this Call sugars in two weeks. [facility]09-[facility]-2024 Telephone encounter Note* Telephone Encounter [...] Please review and advise, Gale Bower RN [facility]09-04-2024 Telephone encounter Note* Telephone Encounter - Ivette Grimes MD - 07/08/2024 2:03 PM EDT noted [facility]09-04-2024 Miscellaneous Notes* Telephone Encounter - Ivette Grimes MD - 07/08/2024 2:03 PM EDT noted * Telephone Encounter - Dennise Robles MA - 07/08/2024 1:13 PM EDT Labs in chart review. Dennise Robles MA documented in this encounterUniversity Hospitals Ahuja [facility] Center09-04-2024 Telephone encounter Note * Telephone Encounter - Dennise Robles MA - 07/08/2024 1:13 PM EDT Labs in chart review. Dennise Robles MA [facility]08-30-2024 NoteHNO ID: [id number] Author: IVETTE GRIMES MD Service: ? Author [...] as needed for wheezing/shortness of breath. Ipratropium What Cheer (ATROVENT) 21 mcg (0.03 %) nasal spray [...] 1 Each by INTRAUTERINE route as directed. [place]-3 Fatty Acids (FISH OIL) 500 mg cap Take 1 capsule by mouth once daily. blood sugar diagnostic (BLOOD GLUCOSE TEST) test strip Test blood sugar(s) 1 times daily. Dx: Type 2 DM - Controlled E11.9 Insulin: Yes Lancets lancets Test blood sugar(s) 1 times daily. Dx: Type 2 DM - Controlled E11.9 Insulin: No Nwzfizkp-Tn-Bfp-Fe-FA tab Take 1 tablet by mouth once [...] Age of Onset Alcohol/Drug Mother Heart Father DC Cancer Father PANCREATIC CANCER Diabetes Father Coronary [...] equally round and reacti (more content not included)...[facility]08-30-[facility] History of Present illness Narrative* [...] hours asneeded for wheezing/shortness of breath. Ipratropium What Cheer (ATROVENT) 21 mcg (0.03 %) nasal spray [...] 1 Each by INTRAUTERINE route as directed. [place]-3 Fatty Acids (FISH OIL) 500 mg cap Take 1 capsule by mouth once daily. blood sugar diagnostic (BLOOD GLUCOSE TEST) test strip Test blood sugar(s) 1 times daily. Dx: Type 2 DM - Controlled E11.9 Insulin: Yes Lancets lancets Test blood sugar(s) 1 times daily. Dx: Type 2 DM - Controlled E11.9 Insulin: No Wmzguaqo-Nx-Xcm-Fe-FA tab Take 1 tablet by mouth once [...] Age of Onset Alcohol/Drug Mother Heart Father DC Cancer Father PANCREATIC CANCER Diabetes Father Coronary [...] follow up or prn documented in this encounterUniversity Hospitals [facility]08-24-2024 Telephone encounter Note * Telephone [...] Lazo LPN June 27, 2024 11:35 AM [facility]08-[facility]-2024 Miscellaneous Notes* Telephone Encounter - [...] 27, 2024 11:35 AM documented in this encounterUniversity Hospitals [facility]08-24-2024 Telephone encounter Note * Telephone [...] Lazo LPN June 27, 2024 11:29 AM [facility]08-[facility]24 Miscellaneous Notes* Telephone Encounter - [...] 27, 2024 11:29 AM documented in this encounterUniversity Hospitals [facility]08-08-2024 Telephone encounter Note * Telephone Encounter - Lubna De La Garza APRN.CNP - 06/11/2024 12:40 PM EDT Ángel Rodriges were ordered. [facility]08-08-2024 Miscellaneous Notes* Telephone Encounter - Lubna De La Garza APRN.CNP - 06/11/2024 12:40 PM EDT Ananthsalon Antelmo were ordered. * Telephone Encounter - Ingrid Slamon MA - 06/11/2024 12:25 PM EDT See mychart message documented in this encounterUniversity Hospitals [facility]08-08-2024 Telephone encounter Note * Telephone Encounter - Ingrid Salmon MA - 06/11/2024 12:25 PM EDT See mychart message [facility]08-01-2024 Telephone encounter Note* Telephone Encounter - Claribel Wright LPN - 06/04/2024 3:37 PM EDT Prior Auth Determination: Denied with Cover my meds. Received via: CMM Medication/ Treatment: Nurtec Reason: Outcome N/A today by [facility] Prior Authorization Department does not manage Prior Authorizations for this plan. Please contact member services phone number on the back of the member ID card. Appeal Information (if included): Re submitted via RX Benefits Faxed to [phone] Confirmation received [facility]08-01-2024 Miscellaneous Notes* Telephone Encounter - Claribel Wright LPN - 06/04/2024 3:37 PM EDT Prior Auth Determination: Denied with Cover my meds. Received via: CMM Medication/ Treatment: Nurtec Reason: Outcome N/A today by [facility] Prior Authorization Department does not manage Prior Authorizations for this plan. Please contact member services phone number on the back of the member ID card. Appeal Information (if included): Re submitted via RX Benefits Faxed to [phone] Confirmation received * Telephone Encounter - Claribel Wright LPN - 06/04/2024 2:22 PM EDT Prior Authorization PENDING Prior Authorization Request From: [facility] Medication/ Treatment: Nurtec Submitted Via Cover My Meds Reference# (if available): (Santos: [id number]) documented in this encounterUniversity Hospitals Ahuja [facility] Center08-01-2024 Telephone encounter Note * Telephone Encounter - Claribel Wright LPN - 06/04/2024 2:22 PM EDT Prior Authorization PENDING Prior Authorization Request From: [facility] Medication/ Treatment: Nurtec Submitted Via Cover My Meds Reference# (if available): (Santos: [id number]) [facility] History of Present illness Narrative* [...] visit. Either the patient or their legal account development representative has been informed of the risks [...] hours asneeded for wheezing/shortness of breath. Ipratropium What Cheer (ATROVENT) 21 mcg (0.03 %) nasal spray [...] 1 Each by INTRAUTERINE route as directed. [place]-3 Fatty Acids (FISH OIL) 500 mg cap Take 1 capsule by mouth once daily. blood sugar diagnostic (BLOOD GLUCOSE TEST) test strip Test blood sugar(s) 1 times daily. Dx: Type 2 DM - Controlled E11.9 Insulin: Yes Lancets lancets Test blood sugar(s) 1 times daily. Dx: Type 2 DM - Controlled E11.9 Insulin: No Wrcezivi-Uv-Lit-Fe-FA tab Take 1 tablet by mouth once [...] Age of Onset Alcohol/Drug Mother Heart Father DC Cancer Father PANCREATIC CANCER Diabetes Father Coronary [...] issues. Ivette Grimes MD documented in this encounterUniversity Hospitals Ahu[facility]07-10-2024 Telephone encounter Note * Telephone [...] Lazo LPN May 13, 2024 11:29 AM [facility]07-10-2024 Miscellaneous Notes* Telephone Encounter - [...] 13, 2024 11:29 AM documented in this encounterUniversity Hospitals [facility]06-28-2024 Telephone encounter Note * Telephone Encounter - Cindy Edouard APRN.CNP - 05/01/2024 12:08 PM EDT Script sent. Cindy Edouard APRN.CNP [facility] Work Phone: 1(784) 688-278206-28-2024 Miscellaneous Notes* Telephone Encounter - Cindy Edouard APRN.CNP - 05/01/2024 12:08 PM EDT Script sent. Cindy Edouard APRN.CNP * Telephone Encounter - Rukhsana Wood - 05/01/2024 11:47 AM EDT Tori is calling Ivette Grimes MD today to request a medication not on current med list: Tizanidine 4 mg tablet taking every 8 hours as needed #60 refill 0 Pharmacy [facility] Please send today if possible, patient [facility] Patient has been identified by name and birthdate. Duration of symptoms: N/A Person calling: self Call patient at: on cell [phone] (home) [phone] (work) [phone] (cell) Was an appointment scheduled: No Closing statement: Results or non-symptom based questions: Thank you for calling [facility], your call will be returned within the next business day. Rukhsana Guerrero documented in this encounterUniversity Hospitals Ahuja [facility] Center06-28-2024 Telephone encounter Note * Telephone Encounter - Rukhsana Wood - 05/01/2024 11:47 AM EDT Tori is calling Ivette Grimes MD today to request a medication not on current med list: Tizanidine 4 mg tablet taking every 8 hours as needed #60 refill 0 Pharmacy [facility] Please send today if possible, patient is out of this medicaiton Patient has been identified by name and birthdate. Duration of symptoms: N/A Person calling: self Call patient at: on cell [phone] (home) [phone] (work) [phone] (cell) Was an appointment scheduled: No Closing statement: Results or non-symptom based questions: Thank you for calling [facility], your call will be returned within the next business day. Rukhsana Guerrero [facility]06-17-2024 Telephone encounter Note* Telephone Encounter [...] RN April 20, 2024 11:22 AM T [facility]06-17-2024 Miscellaneous Notes* Telephone Encounter - [...] 20, 2024 11:22 AM documented in this encounterUniversity Hospitals Ahu[facility]06-17-2024 Telephone encounter Note * Telephone Encounter - Lunba Yoon LPN - 04/20/2024 10:55 AM EDT [...] Yoon LPN April 20, 2024 10:56 AM [facility]2024 Miscellaneous Notes* Telephone Encounter - [...] 20, 2024 10:56 AM documented in this encounterUniversity Hospitals Ahu[facility]06-12-2024 Telephone encounter Note * Telephone Encounter - Mirna Santos MA - 04/15/2024 12:33 PM EDT PA approved till 04/14/2025. Faxed approval to pharmacy and patient left Mirna Santos MA [facility]06-12-2024 Miscellaneous Notes* Telephone Encounter - Mirna Santos MA - 04/15/2024 12:33 PM EDT PA approved till 04/14/2025. Faxed approval to pharmacy and patient left Mirna Santos MA * Telephone Encounter - Mirna Santos MA - 04/15/2024 8:42 AM EDT Submitted PA through [employer] for Trulicity 0.75 mg. Form faxed with office notes and A1c results Mirna Santos MA documented in this encounterUniversity Hospitals Ahuja [facility] Center06-12-2024 Telephone encounter Note * Telephone Encounter - Mirna Santos MA - 04/15/2024 8:42 AM EDT Submitted PA through [employer] for Trulicity 0.75 mg. Form faxed with office notes and A1c results Mirna Santos MA [facility]06-11-2024 Telephone encounter Note* Telephone Encounter - Sheron Anne - 04/14/2024 9:01 AM EDT Last: 02/15/2023 Noted-Follow up in 3 months. Consider transfer of care back to PCP if patient does well on the current dose of her medication atthe next visit. It does not appear that you have seen her since [facility]06-[facility]-2024 Miscellaneous Notes* Telephone Encounter - Sheron Anne - 04/14/2024 9:01 AM EDT Last: 02/15/2023 Noted-Follow up in 3 months. Consider transfer of care back to PCP if patient does well on the current dose of her medication atthe next visit. It does not appear that you have seen her since documented in this encounterUniversity Hospitals Ahu[facility] Center06-03-2024 Telephone encounter Note * Telephone Encounter - Darrion Severino MA - 04/06/2024 2:26 PM EDT Reminder set for botox authorization to be submitted 05/31. Due for next visit 07/01/24. Previous 04/02/24. [facility]24 Miscellaneous Notes* Telephone Encounter - Darrion Severino MA - 04/06/2024 2:26 PM EDT Reminder set for botox authorization to be submitted 05/31. Due for next visit 07/01/24. Previous 04/02/24. documented in this encounterUniversity Hospitals Ahuja [facility] Center05-30-2024 Instructions* Patient Instructions* Fatuma Beckford [...] at for further instructions. documented in this encounterUniversity Hospitals Ahuja [facility] Center05-30-2024 History of Present illness Narrative* [...] for migraine Informed Consent Consent Obtained: Written Sheridan Protocol A moment to CARE was completed [...] applicable Written Consent Obtained: Written LOT #: [id number] Expiration Date: Month: 6 Year: 2025 Second vial: LOT #: [id number] Expiration Date: Month: Year: 2025 Injection Sites Left (Units) Left (Sites) Right (Units) Right (Sites) TOTAL (Units) Research Program Assistant 5 1 5 1 10 Procerus Units: [...] needed. Fatuma Beckford PA-C documented in this encounterUniversity Hospitals Ahuja [facility] Center04-26-2024 Telephone encounter Note * Telephone Encounter - Alyssa Andrews LPN - 02/28/2024 1:21 PM EDT Patient [employer] message requesting the following refill Refill(s) Requested: Requested Prescriptions Pending Prescriptions Disp Refills tiZANidine (ZANAFLEX) 4 mg tablet 60 tablet 0 Sig: Take 1 tablet by mouth every 8 hours as needed. ALLERGIES Allergen Reactions Lidocaine Hives Steroids [Betametha* Hives (home) [phone] (work) [phone] (cell) Last Office Visit Date: 12/09/2023 Last Distance Health Visit: 07/15/2023 Future Appointment: Visit date not found The patients preferred pharmacy has been captured for this encounter? yes Request is for script(s) to be escript to pharmacy. Alyssa Andrews LPN [facility]04-26-2024 Miscellaneous Notes* Telephone Encounter - Alyssa Andrews LPN - 02/28/2024 1:21 PM EDT Patient [employer] message requesting the following refill Refill(s) Requested: Requested Prescriptions Pending Prescriptions Disp Refills tiZANidine (ZANAFLEX) 4 mg tablet 60 tablet 0 Sig: Take 1 tablet by mouth every 8 hours as needed. ALLERGIES Allergen Reactions Lidocaine Hives Steroids [Betametha* Hives (home) [phone] (work) [phone] (cell) Last Office Visit Date: 12/09/2023 Last Distance Health Visit: 07/15/2023 Future Appointment: Visit date not found The patients preferred pharmacy has been captured for this encounter? yes Request is for script(s) to be escript to pharmacy. Alyssa Andrews LPN documented in this encounterUniversity Hospitals Ahuja [facility] Center03-20-2024 Miscellaneous Notes* Telephone Encounter - Stephanie Parsons - 01/22/2024 4:00 PM EDT Patient has been identified by name and date of : Yes Patient phones for refill(s): Patient called for a refill of Tizanidine 4 mg. (Not in refill list). Please send to [facility] pharmacy. Date of last office visit in primary care: 12/09/2023 Date of next office visit in primary care: none Please advise. Thank you. Stephanie Parsons. documented in this encounterUniversity Hospitals Ahuja Medical Center03-13-2024 Miscellaneous Notes* Telephone Encounter - Roya Jaramillo LPN - 01/15/2024 12:07 PM EDT Fax received- Nurtekati has been approved from 01/15/24 - 04/16/24. Roya Jaramillo LPN * Telephone Encounter - Angely Goldsmith LPN - 01/14/2024 5:30 PM EDT Faxed Prior authorization Anthony, signed by provider to [facility] [phone]. Angely Goldsmith LPN * Telephone Encounter - Angely Goldsmith LPN - 01/09/2024 5:17 PM EST Prior Authorization from Rx Benefits received for Nurtec 75 mg, EOC number [id number] dated 01/09/2024 requested a completed drug specific form to be completed, signed by provider faxed. Copy placed on MQ bin in the [place] location to review, sign. Angely Goldsmith LPN * Telephone Encounter - Roya Jaramillo LPN - 01/03/2024 3:39 PM EST Signed completed form faxed per request. Roya Jaramillo LPN * Telephone Encounter - Mariaa Ambrosio OCCA - 12/27/2023 9:01 AM EST Prior authorization needed for [facility]. Patient has RxBenefits, form completed and OV notes attached. Placed on providers desk for signature when she returns to office 12/31. Once signed, please fax asindicated on form. Thank you. GRISELDA Jasmine documented in this encounterUniversity Hospitals Ahuja Medical Center02-22-2024 Instructions* Patient Instructions* Fatuma Beckford [...] office for further instructions. documented in this encounterUniversity Hospitals Ahuja [facility] Center02-22-2024 History of Present illness Narrative* [...] for migraine Informed Consent Consent Obtained: Written Sheridan Protocol A moment to CARE was completed [...] applicable Written Consent Obtained: Written LOT #: [id number] Expiration Date: Month: Year: 2025 Second vial: LOT #: [id number] Expiration Date: Month: Year: 2025 Injection Sites Left (Units) Left (Sites) Right (Units) Right (Sites) TOTAL (Units) Research Program Assistant 5 1 5 1 10 Procerus Units: [...] appointment. Fatuma Beckford PA-C documented in this encounterUniversity Hospitals Ahuja Medical Center02-05-2024 Miscellaneous Notes* Telephone Encounter - Nirmala Storey LPN - 12/09/2023 6:36 PM EST Faxed to [facility]. * Telephone Encounter - Ivette Grimes MD - 12/09/2023 6:04 PM EST Order placed * Telephone Encounter - Nirmala Storey LPN - 12/09/2023 5:48 PM EST Please file mammo. For [facility] need to be mammo with jaquelin. After filed please fax to [facility] for patient. documented in this encounterUniversity Hospitals Ahuja Medical Center02-05-2024 History of Present illness Narrative* Ivette Grimes MD - 12/09/2023 5:29 PM EST Patient presents with: Diabetes HPI: Patient presents today for office visit for follow up. Hb was ok per [facility] lab Still has menses. DM:not [...] for 180 days. Take one poqhs Ipratropium What Cheer (ATROVENT) 21 mcg (0.03 %) nasal spray [...] 1 Each by INTRAUTERINE route as directed. [place]-3 Fatty Acids (FISH OIL) 500 mg cap Take 1 capsule by mouth once daily. blood sugar diagnostic (BLOOD GLUCOSE TEST) test strip Test blood sugar(s) 1 times daily. Dx: Type 2 DM - Controlled E11.9 Insulin: Yes Lancets lancets Test blood sugar(s) 1 times daily. Dx: Type 2 DM - Controlled E11.9 Insulin: No Igwjzwsf-Gc-Oya-Fe-FA tab Take 1 tablet by mouth once [...] Age of Onset Alcohol/Drug Mother Heart Father DC Cancer Father PANCREATIC CANCER Diabetes Father Coronary [...] - stable. Ivette Grimes documented in this encounterUniversity Hospitals Ahuja Medical Center12-24-2023 Discharge summary Author Luan Zepeda [facility] October 27, 2023 3:44pm Note Date/Time October 27, 2023 3:16pm [facility] Medical Records Department [address] [place] [address] Emergency Department Summary 10/27/23 MR#: [id number] Acct: [id number] Name: TORI GRAY Rep #:[id number] : 1980 43 From: Luan Barry PCP: Dr. Ivette Grimes MD Status:PRE E R Location: ED [facility] History of Present Illness Chief Complaint: Ear Problem [facility] Medical History Abnormal ECG Acute [...] %) nasal spray 2 spray intranasal BID qugdfinsh17/20/20 [History Last Taken 08/03/23] omega-3 fatty acids [...] Ox 98 Oxygen Delivery Method Room Air [facility] Narrative Medical decision making narrative: HISTORY OF [...] similar Factors affecting care: Type 2 diabetes [facility] Narrative: Patient was hemodynamically stable, afebrile, nontoxic-appearing. [...] problems, contact your Primary Care Provider. Call [email or web address] ([phone]) or report to the closest Emergency Room. Call 911 if necessary. 10/27/23 3422 <Electronically signed by Luan Zepeda DO> Cosigner Signature (if applicable): CC: Dr. Ivette Grimes MD ~ Signed [facility] Work Phone: 1(400) 808-930012-12-2023 Miscellaneous Notes* Telephone Encounter - Fatuma Beckford PA-C - 10/15/2023 8:13 AM EST Patient was given three month supply on 09/13/23 documented in this encounterUniversity Hospitals Ahuja Medical Center12-11-2023 Miscellaneous Notes* Telephone Encounter - Quinn Lazo - 10/14/2023 1:43 PM EST Patient phones requesting refills as follows: Requested Prescriptions Pending Prescriptions Disp Refills topiramate (TOPAMAX) 100 mg tablet 60 tablet 5 Sig: Take 1 tablet by mouth two times a day. APRIL 07/15/23 NOV 12/09/23 Please review and advise. Quinn Lazo documented in this encounterUniversity Hospitals Ahuja Medical Center12-11-2023 Miscellaneous Notes* Telephone Encounter - [...] (Not on refill list). Please send to [facility] pharmacy. TY documented in this encounterUniversity Hospitals Ahuja Medical Center11-21-2023 Miscellaneous Notes* Telephone Encounter - Ry Wang - 09/24/2023 8:20 AM EST Patient's request for medication is as follows: Requested Prescriptions Pending Prescriptions Disp Refills FLUoxetine (PROZAC) 20 mg capsule 90 capsule 0 Sig: Take 1 capsule by mouth once daily. Prescription(s) as above. Please process accordingly. Ry Wang documented in this encounterUniversity Hospitals Ahuja Medical Center11-06-2023 Miscellaneous Notes* Telephone Encounter - Quinn Lazo - 09/09/2023 1:21 PM EST Patient phones requesting refills as follows: Requested Prescriptions Pending Prescriptions Disp Refills ZOLMitriptan (ZOMIG) 5 mg tablet 9 tablet 11 Sig: Take 1 tablet (5 mg) by mouth once daily. prn APRIL 07/15/23 NOV 12/09/23 Please review and advise. Quinn Lazo documented in this [facility]10-23-2023 Miscellaneous Notes* Telephone Encounter - Nakia Caraballo RN - 08/26/2023 11:58 AM EDT Patient scheduled for 09/13/23 at 2 pm for botox. Latonia Caraballo RN, BSN documented in this [facility]10-20-2023 Miscellaneous Notes* Telephone Encounter - Nirmala Storey LPN - 08/23/2023 2:40 PM EDT Completed and faxed as requested. * Telephone Encounter - Dennise Robles - 08/20/2023 11:55 AM EDT Type of form: 2022 Healthy living program Form received via mail When form is completed, Fax form to [phone] Form has been forwarded to Physician Desk: Dr. Sydney Robles documented in this [facility]09-01-2023 Miscellaneous Notes* Telephone Encounter - Quinn [...] advise. Quinn Lazo LPN documented in this [facility]09-01-2023 Miscellaneous Notes* Telephone Encounter - Jenni [...] Thank you. Jenni Junie documented in this encounterUniversity Hospitals Ahuja Medical Center08-16-2023 History of Present illness Narrative* [...] 02/22/2014 5.3 % 12/05/2012 5.9 % HBA1C, [place] (%) Date Value 01/23/2010 5.8 PCP: Ivette [...] mouth every 8 hours as needed. Ipratropium What Cheer (ATROVENT) 21 mcg (0.03 %) nasal spray [...] 1 Each by INTRAUTERINE route as directed. [place]-3 Fatty Acids (FISH OIL) 500 mg cap Take 1 capsule by mouth once daily. Lancets lancets Test blood sugar(s) 1 times daily. Dx: Type 2 DM - Controlled E11.9 Insulin: No Xcamezpc-Wd-Paj-Fe-FA tab Take 1 tablet by mouth once [...] Age of Onset Alcohol/Drug Mother Heart Father DC Cancer Father PANCREATIC CANCER Diabetes Father Coronary [...] resection MARK Stein DPM Podiatry [address] [facility] [address] Dept: [phone] Dept * Keri Parker RN - 06/19/2023 [...] developed left foot pain documented in this encounterUniversity Hospitals Ahuja Medical Center08-16-2023 Instructions* Patient Instructions* Umesh Delgado [...] time on their feet, such as nurses, head waitress/waiters, andmail carriers, often experience plantar fasciitis. [...] choose the one that fits the best. [place] [address] with your athletic shoes to find a [...] Powerstep Original Full length. Can purchase at [employer] here in [place], [employer] in [place] or [place]. Also can find in [employer] in [facility]. Powersteps can also be purchased [...] everything fits well together documented in this encounterUniversity Hospitals Ahuja Medical Center08-04-2023 History of Present illness Narrative* [...] migraine, would like to go back to [place], noted that I do botox in this location and patient would like to transfer. EEG completed 04/02/23 at [facility] and per report, normal. Pt [...] 2 weeks ago - was working at [employer] and tubs of butter fell and hit her on the right side of the head. Pt states hurt the next day but then felt better. Did not seek medical attention. But then states went to [facility] ER where they did a [...] mouth every 8 hours as needed. Ipratropium What Cheer (ATROVENT) 21 mcg (0.03 %) nasal spray [...] 2 DM - Controlled E11.9 Insulin: No Zrjwible-Sg-Udi-Fe-FA tab Take 1 tablet by mouth once daily. FLUoxetine (PROZAC) 20 mg capsule Take 1 capsule by mouth once daily. [place]-3 Fatty Acids (FISH OIL) 500 mg cap [...] Age of Onset Alcohol/Drug Mother Heart Father DC Cancer Father PANCREATIC CANCER Diabetes Father Coronary [...] time. Follow up after evaluation by neuro [facility]. Ivette Mejia MD I spent a total of 42 minutes on the date of the service which included preparing to see the patient, eiyh-sp-iryr patient care, completing clinical documentation, obtaining and/or [...] of your PCP/referring physician. documented in this encounterUniversity Hospitals Ahuja Medical Center08-03-2023 History of Present illness Narrative* [...] mouth every 8 hours as needed. Ipratropium What Cheer (ATROVENT) 21 mcg (0.03 %) nasal spray [...] 1 Each by INTRAUTERINE route as directed. [place]-3 Fatty Acids (FISH OIL) 500 mg cap Take 1 capsule by mouth once daily. blood sugar diagnostic (BLOOD GLUCOSE TEST) test strip Test blood sugar(s) 1 times daily. Dx: Type 2 DM - Controlled E11.9 Insulin: Yes (Patient not taking: Reported on 05/28/2023) Lancets lancets Test blood sugar(s) 1 times daily. Dx: Type 2 DM - Controlled E11.9 Insulin: No Ifyylgdm-Ia-Obs-Fe-FA tab Take 1 tablet by mouth once [...] Age of Onset Alcohol/Drug Mother Heart Father DC Cancer Father PANCREATIC CANCER Diabetes Father Coronary [...] RTO in six months documented in this encounterUniversity Hospitals Ahuja Medical Center07-26-2023 History of Present illness Narrative* Isiah Funes APRN.CNP - 05/29/2023 4:38 PM EDT Boot provided, see yesterdays addended noted. documented in this encounterUniversity Hospitals Ahuja Medical Center07-26-2023 Miscellaneous Notes* Telephone Encounter - [...] boot. Please call Pt. documented in this encounterUniversity Hospitals Ahuja Medical Center07-17-2023 Discharge summary Author Sam Pearl [facility] May 20, 2023 10:36pm Note Date/Time May 20, 2023 10:3 6pm [facility] Medical Records Department [address] [place] [id number] Emergency Department Summary 05/20/23 MR#: [id number] Acct: [id number] Name: TORI GRAY Rep #:[id number] : 1980 42 From: Sam Pearl MD [...] are now made worse since this injury. [facility] Medical History Abnormal ECG Acute [...] #10 ea 04/26/20 [History Last Taken Unknown] wpfkrhmv-zsp-Tg-FA 1 mg capsule 1 cap PO DAILY [...] restrictions temporarily. NEXUS Head CT Instrument from [employer] on 05/20/2023 All calculations should be rechecked [...] Age >=5 years ?> 0 = No Palestinian CT Head Injury/Trauma Rule from [employer] on 05/20/2023 All calculations should be rechecked by clinician prior to use RESULT SUMMARY: CT Unnecessary The Palestinian Head CT Rule suggests a head CT [...] consciousness Instructions: ED Concussion Prescriptions: No Action wnvdacjl-cwc-Hi-FA 1 mg capsule 1 mg capsule 1 [...] your Primary Care Provider. Call [facility] ([phone]) or report to the closest Emergency Room. Call 911 if necessary. 07/2235 <Electronically signed by Sam Pearl MD> Cosigner Signature (if applicable): CC: Dr. Ivette Grimes MD ~ Signed [facility] Work Phone: [phone]) 771-437207-14-2023 Instructions* Patient Instructions* Fatuma Beckford PA-C - [...] office for further instructions. documented in this encounterUniversity Hospitals Ahuja Medical Center07-14-2023 History of Present illness Narrative* [...] for migraine Informed Consent Consent Obtained: Written Sheridan Protocol A moment to CARE was completed [...] applicable Written Consent Obtained: Written LOT #: [id number] Expiration Date: Month: 9 Year: 2024 Second vial: LOT #: [id number] Expiration Date: Month: Year: 2024 Injection Sites Left (Units) Left (Sites) Right (Units) Right (Sites) TOTAL (Units) Research Program Assistant 5 1 5 1 10 Procerus Units: [...] therapy. Fatuma Beckford PA-C documented in this encounterUniversity Hospitals Ahuja Medical Center07-05-2023 Miscellaneous Notes* Telephone Encounter - [...] you. Lubna Yoon LPN documented in this encounterUniversity Hospitals Ahuja Medical Center06-02-2023 Miscellaneous Notes* Telephone Encounter - [...] patient. Nirmala Storey LPN documented in this encounterUniversity Hospitals Ahuja Medical Center05-17-2023 Miscellaneous Notes* Telephone Encounter - Nakia Caraballo RN - 03/20/2023 12:38 PM EDT Botox renewal sent to pharmacy. Will schedule at [place] once approved. Patient due 04/22/23. [facility] unchecked. Latonia Caraballo RN documented in this encounterUniversity Hospitals Ahuja Medical Center05-08-2023 Miscellaneous Notes* Telephone Encounter - Nakia Caraballo RN - 03/11/2023 11:01 AM EDT Patient is not due for botox until 04/22/23. Asked her which location she prefers so we can scheduleonce approved. Latonia Caraballo RN documented in this encounterUniversity Hospitals Ahuja Medical Center05-02-2023 Instructions* Patient Instructions* Fatuma Beckford PA-C - 03/05/2023 1:02 PM EDT Continue regimen Reach out with any new symptoms or worsening weakness Reach out to [facility] about moving botox Follow up with sleep provider in three months documented in this encounterUniversity Hospitals Ahuja Medical Center05-02-2023 History of Present illness Narrative* [...] changes in meds at this time. 6. ELTITIA (obstructive sleep apnea) - ICD9: 327.23, ICD10: [...] Each by INTRAUTERINE route as directed. Ipratropium What Cheer (ATROVENT) 0.03 % nasal spray Use 2 Sprays in the nose every 12 hours. Mandeville-3 Fatty Acids (FISH OIL) 500 mg cap Take 1 capsule by mouth once daily. blood sugar diagnostic (BLOOD GLUCOSE TEST) test strip Test blood sugar(s) 1 times daily. Dx: Type 2 DM - Controlled E11.9 Insulin: Yes Lancets lancets Test blood sugar(s) 1 times daily. Dx: Type 2 DM - Controlled E11.9 Insulin: No Attypcfm-Fq-Szc-Fe-FA tab Take 1 tablet by mouth once daily. HISTORIES PAST MEDICAL HISTORY Diagnosis Date Acute cholecystitis Cholecystitis Anxiety 06/07/2014 Chronic back pain Kidney stones LETITIA treated with BiPAP Type 2 diabetes mellitus (HCC) FAMILY HISTORY Problem Relation Age of Onset Alcohol/Drug Mother Heart Father DC Cancer Father PANCREATIC CANCER Diabetes Father Coronary [...] dysarthria; comprehension, naming, repetition intact. Short and correction memory intact. CN: PERRL, EOMI and without [...] migraine, would like to go back to [place], noted that I do botox in this [...] which included preparing to see the patient, xznp-bm-swst patient care, completing clinical documentation, obtaining and/or reviewing separately obtained history, performing a medically appropriate examination, counseling and educating the pat ient/family/caregiver, and ordering medications, tests, or procedures. This document has been created with the use of voice recognition technology. It may contain inaccuracies: (e.g. misspellings, inaccurate syntax or word sense) that have escaped review. documented in this encounterUniversity Hospitals Ahuja Medical Center05-02-2023 History of Present illness Narrative* [...] L1 SAB0 IAB0 Ectopic0 Multiple0 Live Births1 Trimming Cutter History LMP: 01/02/2023 (Approximate), IUD Age at Menarche: Age at First : Age at Menopause: Trimming Cutter History Comments: Sexual Activity: Not Currently; No [...] Age of Onset Alcohol/Drug Mother Heart Father DC Cancer Father PANCREATIC CANCER Diabetes Father Coronary [...] external genitalia normal, normal Bartholin's glands, urethra, Panama's glands, no vulvar lesions, no cervical lesions, [...] needed Galina Camacho MD documented in this encounterUniversity Hospitals Ahuja Medical Center05-01-2023 Miscellaneous Notes* Telephone Encounter - [...] to Mounjaro. Please advise pt. Pharmacy is [facility]. Cary Goldsmith LPN documented in this encounterUniversity Hospitals Ahuja Medical Center04-28-2023 History of Present illness Narrative* [...] appointment. Ivette Mejia MD documented in this encounterUniversity Hospitals Ahuja Medical Center04-28-2023 Miscellaneous Notes* Telephone Encounter - Anni Sauceda Pss - 03/01/2023 9:54 AM EDT PCP requesting the patient have a follow-up with [facility]. Spoke with the patient and she wasn't able to take the time available. The patient is scheduled for a follow-up appointment with the PA. The patient is aware of the appointment. documented in this encounterUniversity Hospitals Ahuja Medical Center04-27-2023 History of Present illness Narrative* [...] Each by INTRAUTERINE route as directed. Ipratropium What Cheer (ATROVENT) 0.03 % nasal spray Use 2 Sprays in the nose every 12 hours. metroNIDAZOLE (METROGEL) 0.75 % Topical Gel Apply to affected area twice daily. Mandeville-3 Fatty Acids (FISH OIL) 500 mg cap Take 1 capsule by mouth once daily. blood sugar diagnostic (BLOOD GLUCOSE TEST) test strip Test blood sugar(s) 1 times daily. Dx: Type 2 DM - Controlled E11.9 Insulin: Yes Lancets lancets Test blood sugar(s) 1 times daily. Dx: Type 2 DM - Controlled E11.9 Insulin: No Cwrueevh-Yl-Guy-Fe-FA tab Take 1 tablet by mouth once [...] Age of Onset Alcohol/Drug Mother Heart Father DC Cancer Father PANCREATIC CANCER Diabetes Father Coronary [...] BLD Ivette Grimes MD documented in this encounterUniversity Hospitals Ahuja Medical Center04-27-2023 History of Present illness Narrative* [...] 28, 2023 8:53 AM documented in this encounterUniversity Hospitals Ahuja Medical Center04-26-2023 Miscellaneous Notes* Telephone Encounter - [...] the provider could send her something to [facility] pharmacy just to take for tomorrow. Please call and advise. documented in this encounterUniversity Hospitals Ahuja Medical Center04-24-2023 Miscellaneous Notes* Telephone Encounter - [...] 02/28/23 Adriana Swanson MA documented in this encounterUniversity Hospitals Ahuja Medical Center04-14-2023 History of Present illness Narrative* [...] visit. Either the patient or their legal account development representative has been informed of the risks [...] has been seeing a counselor at the [facility]. Has been working with him [...] which included preparing to see the patient, cugo-pc-jbsa patient care, completing clinical documentation, and counseling and educating the patient/family/caregiver, ordering medications/labs, and communicating with other healthcare providers. Grace Coronel APRN.EBD TEACHER February 15, 2023 3:32 PM This note was partially generated using [employer] voice recognition system. Note was reviewed for accuracy. There may be minor misspellings or grammar miscues with [employer] voice recognition. documented in this encounterUniversity Hospitals Ahuja Medical Center04-12-2023 Miscellaneous Notes* Telephone Encounter - Nirmala Storey LPN - 02/13/2023 5:54 PM EDT Apprats message sent to patient. * Telephone Encounter [...] of US head/neck soft tissue received from [facility] via fax. Results scanned into [facility]. (May takea few minutes before viewable in Epic.) Quinn Lazo LPN documented in this encounterUniversity Hospitals Ahuja Medical Center04-10-2023 Miscellaneous Notes* Telephone Encounter - Quinn Lazo LPN - 02/11/2023 1:15 PM EDT Patient phones requesting refills as follows: Requested Prescriptions Pending Prescriptions Disp Refills tiZANidine (ZANAFLEX) 4 mg tablet 20 tablet 0 Sig: Take 1 tablet by mouth every 8 hours as needed. APRIL 01/31/23 NOV 02/28/23 Please review and advise. Quinn Lazo LPN documented in this encounterUniversity Hospitals Ahuja Medical Center03-30-2023 Miscellaneous Notes* Telephone Encounter - Juliana Murphy Ma - 01/31/2023 10:31 AM EDT Faxed order to [facility] per patient's request * Telephone Encounter - Ivette Grimes MD - 01/31/2023 9:44 AM EDT While here patient has noted an intermittent lump in left neck. Slightly sore to touch. Comes andgoes. Is a nonspecific swelling on left posterior neck. Not sure is related to her fall. Will run throughregular [employer]. Set up us at [facility]. Will run through regular insurance. documented in this encounterUniversity Hospitals Ahuja Medical Center03-30-2023 History of Present illness Narrative* [...] Each by INTRAUTERINE route as directed. Ipratropium What Cheer (ATROVENT) 0.03 % nasal spray Use 2 Sprays in the nose every 12 hours. metroNIDAZOLE (METROGEL) 0.75 % Topical Gel Apply to affected area twice daily. Mandeville-3 Fatty Acids (FISH OIL) 500 mg cap Take 1 capsule by mouth once daily. blood sugar diagnostic (BLOOD GLUCOSE TEST) test strip Test blood sugar(s) 1 times daily. Dx: Type 2 DM - Controlled E11.9 Insulin: Yes Lancets lancets Test blood sugar(s) 1 times daily. Dx: Type 2 DM - Controlled E11.9 Insulin: No Fbfzunux-Ei-Two-Fe-FA tab Take 1 tablet by mouth once [...] Age of Onset Alcohol/Drug Mother Heart Father DC Cancer Father PANCREATIC CANCER Diabetes Father Coronary [...] above. Ivette Grimes MD documented in this encounterUniversity Hospitals Ahuja Medical Center03-23-2023 NoteHNO ID: [id number] Author: Gloria Oh MA Service: ? Author Type: Electrical Inspector Type: Progress Notes Filed: 01/24/2023 11:07 AM [...] and suicidal ideas. The patient is not nervous/anxious.[facility]03-23-2023 History of Present illness Narrative* [...] not included. [facility] [place] [facility] Name: Tori Gray : 1980 Purpose: Follow-up, discuss SPRINT Today's Date: 01/24/2023 Last Visit: 11/08/2022 ([facility] RELIGIOUS HEALER) Chief complaint: LEFT shoulder pain Tori Gray [...] was advised that they will need a inventory associate and driver for after the procedure and that if no inventory associate and driver is available and on site at the time of the procedure, the procedure will be cancelled. For any anticoagulants, the patient was advised on whether to continue or hold for this procedure. The patient expressed understanding and gave verbal consent to proceed. Medications: Refill: Continue Gabapentin as directed (PCP manages) Functional Cheondoism: Continue PT and TENs unit for pain [...] MBA Pain Management [facility] documented in this encounterUniversity Hospitals Ahuja Medical Center03-21-2023 Instructions* Patient Instructions* Jennifrank Ledesma APRN.CNP - [...] the next 5 days. documented in this encounterUniversity Hospitals Ahuja Medical Center03-21-2023 History of Present illness Narrative* [...] for migraine Informed Consent Consent Obtained: Written Sheridan Protocol A moment to CARE was completed [...] applicable Written Consent Obtained: Written LOT #: [id number] Expiration Date: Month: 3 Year: 2024 Second vial: LOT #: [id number] Expiration Date: Month: 3 Year: 2024 Injection Sites Left (Units) Left (Sites) Right (Units) Right (Sites) TOTAL (Units) Research Program Assistant 5 1 5 1 10 Procerus Units: [...] recommendations. Karen Bansal APRN.GABRIELA documented in this encounterUniversity Hospitals Ahuja Medical Center03-16-2023 History of Past illness Narrative* [...] of this encounter (statuses as of 12/10/2023) [facility]03-16-2023 History of Past illness Narrative* [...] of this encounter (statuses as of 12/10/2023) [facility]03-16-2023 History of Past illness Narrative* [...] Routine general medical exam ination at a [facility] care facility 01/23/2010 12/06/2012 Overview: 01/23/2010, from [...] of this encounter (statuses as of 12/26/2023) [facility]03-16-2023 History of Past illness Narrative* [...] of this encounter (statuses as of 01/02/2024) [facility]03-16-2023 History of Past illness Narrative* [...] of this encounter (statuses as of 01/15/2024) [facility]03-16-2023 History of Past illness Narrative* [...] of this encounter (statuses as of 01/23/2024) [facility]03-16-2023 History of Present illness Narrative* [...] to return to her second job at [employer] for one night and 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 She feels like the back of her neck feels off. No cough or congestion. No sore throat or fever. Had a cold last week. Now better. MRI still not approved. She spoke with [employer] who states a C9 needs completed specifically [...] Each by INTRAUTERINE route as directed. Ipratropium What Cheer (ATROVENT) 0.03 % nasal spray Use 2 Sprays in the nose every 12 hours. Mandeville-3 Fatty Acids (FISH OIL) 500 mg cap Take 1 capsule by mouth once daily. blood sugar diagnostic (BLOOD GLUCOSE TEST) test strip Test blood sugar(s) 1 times daily. Dx: Type 2 DM - Controlled E11.9 Insulin: Yes Lancets lancets Test blood sugar(s) 1 times daily. Dx: Type 2 DM - Controlled E11.9 Insulin: No Iucplaxe-Wn-Rnf-Fe-FA tab Take 1 tablet by mouth once [...] Age of Onset Alcohol/Drug Mother Heart Father DC Cancer Father PANCREATIC CANCER Diabetes Father Coronary [...] S19.9XXD Ivette Grimes MD documented in this encounterUniversity Hospitals Ahuja Medical Center03-14-2023 NoteHNO ID: [id number] Author: Elle Sanchez MD Service: ? Author Type: Physician Type: Progress Notes Filed: 01/24/2023 11:07 AM Note Text: [facility] [place] [facility] Name: Tori Gray : 1980 Purpose: Follow-up, discuss SPRINT Today's Date: 01/24/2023 Last Visit: 11/08/2022 (OV RELIGIOUS HEALER) Chief complaint: LEFT shoulder pain Tori Gray [...] of Motion: Normal Scapulothoracic (more content not included)...[facility]03-10-2023 Miscellaneous Notes* Telephone Encounter - Nirmala Storey LPN - 01/11/2023 4:42 PM EST Request is closed. An override is in effect until 01/09/24. * Telephone Encounter - Mirna Santos Ma - 01/08/2023 4:55 PM EST PA was submitted through rx benefits Mirna Santos Ma documented in this encounterUniversity Hospitals Ahuja Medical Center03-09-2023 Miscellaneous Notes* Telephone Encounter - [...] patient. Nirmala Storey LPN documented in this encounterUniversity Hospitals Ahuja Medical Center03-03-2023 History of Present illness Narrative* [...] Each by INTRAUTERINE route as directed. Ipratropium What Cheer (ATROVENT) 0.03 % nasal spray Use 2 Sprays in the nose every 12 hours. metroNIDAZOLE (METROGEL) 0.75 % Topical Gel Apply to affected area twice daily. Mandeville-3 Fatty Acids (FISH OIL) 500 mg cap Take 1 capsule by mouth once daily. blood sugar diagnostic (BLOOD GLUCOSE TEST) test strip Test blood sugar(s) 1 times daily. Dx: Type 2 DM - Controlled E11.9 Insulin: Yes Lancets lancets Test blood sugar(s) 1 times daily. Dx: Type 2 DM - Controlled E11.9 Insulin: No Omixzhzp-Gi-Elo-Fe-FA tab Take 1 tablet by mouth once [...] Age of Onset Alcohol/Drug Mother Heart Father DC Cancer Father PANCREATIC CANCER Diabetes Father Coronary [...] R51.9 Ivette Grimes MD documented in this encounterUniversity Hospitals Ahuja Medical Center02-28-2023 Miscellaneous Notes* Telephone Encounter - Juliana Carrionnu Ramirez - 01/01/2023 3:02 PM EST Patient never checked in for her appointments as workers comp. Sent visits to [facility] to have C9 created and faxed to [...] resubmit. Hailey Leone LPN documented in this encounterUniversity Hospitals Ahuja Medical Center02-23-2023 Miscellaneous Notes* Telephone Encounter - Anni Sauceda Pss - 12/27/2022 2:22 PM EST Received the [facility] C9 form. The patient was seen on 12/07/2022. The appointment was attached to the patient's insurance not a WC claim. Spoke with the patient and was given the information. PCP Dr. Grimes is the physican of records per the patient. Claim# [id number] Date of injury: 11/24/2022 Nolberto Walden RN [phone] Case management: Cristina # [phone] Left Cristina a message to fax information and to call the office. Requested WC report and DX allowed * Telephone Encounter - Jovana Blackwell MA - 12/26/2022 2:12 PM EST Spoke to [employer]. Will send OV note to complete authorization of MRI order/payment of visit to [phone]. [employer] is sending c9 form for provider to complete. Gave form to Anni Sauceda per Dr. Mejia's instructions. Jovana Blackwell MA * Telephone Encounter - Jovana Blackwell MA - 12/25/2022 10:18 AM EST TC to [employer]. Unable to reach. Left detailed message on VM to return call to office & ask for atriage nurse. Please transfer to neurology back line at ext. [phone]. Jovana Blackwell MA * Telephone Encounter - Marilynn Frank LPN - 12/24/2022 3:28 PM EST Patient calling said her MRI's need to be prior authorized with [employer]. Person name is lawrence number is [phone] works 8 am to 430 pm and fax number is [phone]. Patient claim number is [id number]. documented in this encounterUniversity Hospitals Ahuja Medical Center02-22-2023 Miscellaneous Notes* Telephone Encounter - Quinn Lazo LPN - 12/26/2022 11:41 AM EST Patient phones requesting refills as follows: Requested Prescriptions Pending Prescriptions Disp Refills tiZANidine (ZANAFLEX) 4 mg tablet 20 tablet 0 Sig: Take 1 tablet by mouth every 8 hours as needed. APRIL 12/26/22 NOV 01/04/23 Please review and advise. Quinn Lazo LPN documented in this encounterUniversity Hospitals Ahuja Medical Center02-22-2023 History of Present illness Narrative* [...] Each by INTRAUTERINE route as directed. Ipratropium What Cheer (ATROVENT) 0.03 % nasal spray Use 2 [...] 2 DM - Controlled E11.9 Insulin: No Shtpwhqo-Za-Msk-Fe-FA tab Take 1 tablet by mouth once daily. Mand[place]-3 Fatty Acids (FISH OIL) 500 mg cap [...] Age of Onset Alcohol/Drug Mother Heart Father DC Cancer Father PANCREATIC CANCER Diabetes Father Coronary [...] until 01/07. 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 Recheck in one week. 2. Essential (primary) hypertension - ICD9: 401.9, ICD10: I10 - good control - Continue current medication(s) - Goal of BP <130/80 Ivette Grimes MD documented in this encounterUniversity Hospitals Ahuja Medical Center02-20-2023 Miscellaneous Notes* Telephone Encounter - Nakia Caraballo RN - 12/24/2022 5:22 PM EST Last OV: 07/19/22 Last Refill: 08/03/22 FU OV: 01/22/23 Appropriate for refill routed to for review Latonia Caraballo RN documented in this encounterUniversity Hospitals Ahuja Medical Center02-10-2023 History of Present illness Narrative* [...] waiting to schedule those. Conflicts over at [facility] with workers comp. Injury that [...] Each by INTRAUTERINE route as directed. Ipratropium What Cheer (ATROVENT) 0.03 % nasal spray Use 2 Sprays in the nose every 12 hours. metroNIDAZOLE (METROGEL) 0.75 % Topical Gel Apply to affected area twice daily. Mand[place]-3 Fatty Acids (FISH OIL) 500 mg cap [...] 2 DM - Controlled E11.9 Insulin: No Ewttjflh-De-Qvl-Fe-FA tab Take 1 tablet by mouth once [...] Age of Onset Alcohol/Drug Mother Heart Father DC Cancer Father PANCREATIC CANCER Diabetes Father Coronary [...] RTO in two weeks. documented in this encounterUniversity Hospitals Ahuja Medical Center02-07-2023 Miscellaneous Notes* Telephone Encounter - Ingrid Salmon Ma - 12/11/2022 9:55 AM EST Last office visit: 12/07/22 F/u scheduled: 12/14/22 Ingrid Salmon Ma documented in this encounterUniversity Hospitals Ahuja Medical Center02-03-2023 History of Present illness Narrative* [...] view their previous records. documented in this encounterUniversity Hospitals Ahuja Medical Center02-03-2023 History of Present illness Narrative* [...] when sleepy. Advised pt to avoid ozone rn bsn. Patient now referred for NEW complaint of head trauma. ER notes and PCP notes reviewed. Per PCP note of 11/27/22: Patient presents today for office visit for ER F/U from [facility] 11/24/22. Head injury after fall. [...] Appears pt had CT brain x2 at [facility] that were both unremarkable. Pt also previously referred to headache center to perform botox -- scheduled to get injections by January 2023. Note records show that pt has seen cards (EP) for QT prolongation concerns. Pt states on 11/24/22 was working at [facility] was doing a discharge, when [...] Each by INTRAUTERINE route as directed. Ipratropium What Cheer (ATROVENT) 0.03 % nasal spray Use 2 Sprays in the nose every 12 hours. blood sugar diagnostic (BLOOD GLUCOSE TEST) test strip Test blood sugar(s) 1 times daily. Dx: Type 2 DM - Controlled E11.9 Insulin: Yes Lancets lancets Test blood sugar(s) 1 times daily. Dx: Type 2 DM - Controlled E11.9 Insulin: No Mmywyksn-Lm-Niu-Fe-FA tab Take 1 tablet by mouth once daily. metroNIDAZOLE (METROGEL) 0.75 % Topical Gel Apply to affected area twice daily. (Patient not taking: Reported on 12/07/2022) Mandeville-3 Fatty Acids (FISH OIL) 500 mg cap Take 1 capsule by mouth once daily. (Patient taking differently: Take 1 tablet by mouth once daily. 1200 mg) HISTORIES PAST MEDICAL HISTORY Diagnosis Date Acute cholecystitis Cholecystitis Anxiety 06/07/2014 Chronic back pain Kidney stones LETITIA treated with BiPAP Type 2 diabetes mellitus (HCC) FAMILY HISTORY Problem Relation Age of Onset Alcohol/Drug Mother Heart Father DC Cancer Father PANCREATIC CANCER Diabetes Father Coronary [...] which included preparing to see the patient, mnpd-xt-bztb patient care, completing clinical documentation, obtaining and/or reviewing separately obtained history, performing a medically appropriate examination, counseling and educating the pat ient/family/caregiver, ordering medications, tests, or procedures, and communicating results to thepatient/family/caregiver. documented in this encounterUniversity Hospitals Ahuja Medical Center01-31-2023 Miscellaneous Notes* Telephone Encounter - Marilynn Gómezgeremias SÁNCHEZ - 12/04/2022 9:52 AM EST [place] from [facility] calling asking for copy of 11/27/2022 office visit notes and copy of letter off work to be faxed to [phone] with claim number [id number]. Printed and faxed as requested. documented in this encounterUniversity Hospitals Ahuja Medical Center01-30-2023 Miscellaneous Notes* Telephone Encounter - [...] agreeable. Mechelle Velasquez RN documented in this encounterUniversity Hospitals Ahuja Medical Center01-27-2023 History of Present illness Narrative* [...] Each by INTRAUTERINE route as directed. Ipratropium What Cheer (ATROVENT) 0.03 % nasal spray Use 2 Sprays in the nose every 12 hours. metroNIDAZOLE (METROGEL) 0.75 % Topical Gel Apply to affected area twice daily. [place]-3 Fatty Acids (FISH OIL) 500 mg cap [...] 2 DM - Controlled E11.9 Insulin: No Clcoxgtj-Gu-Asd-Fe-FA tab Take 1 tablet by mouth once [...] Age of Onset Alcohol/Drug Mother Heart Father DC Cancer Father PANCREATIC CANCER Diabetes Father Coronary [...] ICD10: S06.0X9A Ivette Grimes documented in this encounterUniversity Hospitals Ahuja Medical Center01-26-2023 Miscellaneous Notes* Telephone Encounter - [...] her appointment for 12/05/22 with you in [place] as she is not sure if this will effect her. Please advise. Darrion Shah documented in this encounterUniversity Hospitals Ahuja Medical Center01-24-[address] Callejas [facility] November 27, 2022 6:34pm Note Date/Time November 27, 2022 3 :56pm [facility] Medical Records Department [address] [place] [address] Emergency Department Summary 11/27/22 MR#: [id number] Acct: [id number] Name: TORI GRAY Rep #:[id number] : 1980 42 From: Tod Callejas MD [...] other symptoms consistent with a viral illness. [facility] Medical History Acute bronchitis Acute [...] #10 ea 04/26/20 [History Last Taken Unknown] paikbloj-qux-Yz-FA 1 mg capsule 1 cap PO DAILY [...] concussion Instructions: ED Concussion Prescriptions: No Action fpyvdmsi-hoo-Ce-FA 1 mg capsule 1 mg capsule 1 [...] your Primary Care Provider. Call [facility] ([phone]) or report to the closest Emergency Room. Call 911 if necessary. 11/27/221833 <Electronically signed by Tod Callejas MD> Cosigner Signature (if applicable): CC: Dr. Ivette Grimes MD ~ Signed [facility] Work Phone: 1(882) 887-784001-24-2023 History of Present illness Narrative* Ivette Grimes MD - 11/27/2022 1:48 PM EST Patient presents with: ER F/U HPI: Patient presents today for office visit for ER F/U from [facility] 11/24/22. Head injury after fall. [...] Each by INTRAUTERINE route as directed. Ipratropium What Cheer (ATROVENT) 0.03 % nasal spray Use 2 Sprays in the nose every 12 hours. metroNIDAZOLE (METROGEL) 0.75 % Topical Gel Apply to affected area twice daily. [place]-3 Fatty Acids (FISH OIL) 500 mg cap [...] 2 DM - Controlled E11.9 Insulin: No Cfemephs-Am-Njf-Fe-FA tab Take 1 tablet by mouth once [...] Age of Onset Alcohol/Drug Mother Heart Father DC Cancer Father PANCREATIC CANCER Diabetes Father Coronary [...] S06.0X9A Ivette Grimes MD documented in this encounterUniversity Hospitals Ahuja Medical Center01-20-2023 Miscellaneous Notes* Telephone Encounter - [...] advise. Quinn Lazo LPN documented in this encounterUniversity Hospitals Ahuja Medical Center01-12-2023 Miscellaneous Notes* Telephone Encounter - Jumana Harrell LPN - 11/15/2022 8:34 AM EST Patient phones requesting refills as follows: Requested Prescriptions Pending Prescriptions Disp Refills tiZANidine (ZANAFLEX) 4 mg tablet 20 tablet 0 Sig: Take 1 tablet by mouth every 8 hours as needed. APRIL-09/04/22 Labs-09/06/22 NOV-12/06/22 med filled 10/05/22 Please review and advise. Jumana Harrell LPN documented in this encounterUniversity Hospitals Ahuja Medical Center01-05-2023 NoteHNO ID: [id number] Author: Adelina Mason APRN.EBD TEACHER Service: ? Author Type: Nurse Practitioner Type: Progress Notes Filed: 11/08/2022 1:55 PM Note Text: [facility] [place] [facility] Today's Date: 11/08/2022 Last Visit: 07/19/22 [...] activity was identified. 11/08/2022 by Adelina Mason APRN.EBD TEACHER Allergies: ALLERGIES Allergen Reactions Lidocaine Hives Steroids [...] pain (primary encounter deepali (more content not included)...[facility] 11-08-2022 NoteHNO ID: [id number] Author: Gloria Oh MA Service: ? Author Type: Electrical Inspector Type: Progress Notes Filed: 11/08/2022 1:55 PM [...] and suicidal ideas. The patient is not nervous/anxious.[facility]01-05-2023 Miscellaneous Notes* Telephone Encounter - [...] No 9. Does this procedure require a inventory associate and driver? Yes If yes, has patient been notified that a inventory associate and driver is needed and must be present [...] COVID vaccine.) Vito Mancera documented in this encounterUniversity Hospitals Ahuja Medical Center01-05-2023 Instructions* Patient Instructions* Adelina Mason APRN.CNP - 11/08/2022 1:54 PM EST Activity as tolerated Use Ice and/or heat as tolerated as needed documented in this encounterUniversity Hospitals Ahuja Medical Center01-05-2023 History of Present illness Narrative* Adelina Mason APRN.CNP - 11/08/2022 1:30 PM EST Images from the original note were not included. [facility] Today's Date: 11/08/2022 Last Visit: 07/19/22 [...] suspiciousactivity was identified. 11/08/2022 by Adelina Mason APRN.EBD TEACHER Allergies: ALLERGIES Allergen Reactions Lidocaine Hives Steroids [...] Continue Gabapentin as directed (PCP manages) Functional Cheondoism: Continue PT and TENs unit for pain [...] current medical decision making from today's date. Adeilna Mason APRN.CNP Pain Management [facility] * Gloria Oh MA - 11/08/2022 [...] patient is not nervous/anxious. documented in this encounterUniversity Hospitals Ahuja Medical Center12-09-2022 Instructions* Patient Instructions* Grace Coronel [...] - Call the National Suicide Hotline at 3-632-TIEOXDT ( ) or 2-517-608-TALK (0940) - Text 0SHTE to 448104 Medication Update: - Prozac 10 mg - take 1 capsule once daily for 7 days; then take 2 capsules once daily after that. Next appointment: --Schedule in 4 to 6 weeks or sooner if needed -- You may call the department appointment line at [phone] to schedule your appointment. -- Please call my nurse Coretta at [phone] or send me a message in Igen[employer] with any questions or concerns between appointments. documented in this encounterUniversity Hospitals Ahuja Medical Center12-09-2022 History of Present illness Narrative* [...] her. They get along well. 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 REFERRAL SOURCE: PCP - [...] report that daughter has support from her cement truck loader and therapist and has been doing better. [...] current PAP mask.) 1 Device 99 Ipratropium What Cheer (ATROVENT) 0.03 % nasal spray Use 2 Sprays in the nose every 12 hours. 1 Bottle2 metroNIDAZOLE (METROGEL) 0.75 % Topical Gel Apply to affected area twice daily. 45 g 2 [place]-3 Fatty Acids (FISH OIL) 500 mg cap Take 1 capsule by mouth once daily. 30 capsule 11 blood sugar diagnostic (BLOOD GLUCOSE TEST) test strip Test blood sugar(s) 1 times daily. Dx: Type 2 DM - Controlled E11.9 Insulin: Yes 50 Strip 11 Lancets lancets Test blood sugar(s) 1 times daily. Dx: Type 2 DM - Controlled E11.9 Insulin: No 100Each 11 Qicmnjwe-Rz-Uis-Fe-FA tab Take 1 tablet by mouth once daily. 0 No current facility-administered medications for this visit. VITAL SIGNS: There were no vitals filed for this visit. ROS: All other systems negative. PSYCHIATRIC HISTORY: Prior Diagnosis: Generalized Anxiety Disorder, and Depression Prior Provider: No prior psychiatrist Therapist: Previously followed at the counseling center. Stopped during the pandemic. Current Patient Service Technician Pst: No Last Hospitalization: Denies hospitalization. ECT: No Previous Discontinued Psychiatric Med Trials: Ativan as needed PRN. Paxil, Buspar (low dose), Wellbutrin SUBSTANCE USE HISTORY: Nicotine: None Caffeine: Mert, 1/day Alcohol: No history of use or dependence Marijuana: No history of use or dependence Cocaine: No history of use or dependence Opiods: No history of use or dependence SPIRITUALITY: Sikhism [facility]: Tori Gray is the oldest of 2 siblings. Her brother lives in [place]. The patient was born in [place] and raised in [place], [place]. She completed Associates degree in psychology. [...] which included preparing to see the patient, rvzc-pa-ghfq patient care, completing clinical documentation, obtaining and/or reviewing separately obtained history, counseling and educating the patient/family/caregiver, ordering medications, ananth ts, or procedures, communicating with other HCPs (not separately reported), and independently interpreting results (not separately reported). ADD ON PSYCHOTHERAPY CODE : No SIGNATURE: Grace Coronel APRN.CNP PATIENT NAME: Tori Gray DATE: October 12, 2022 TIME: 8:40 AM PAGER : documented in this encounterUniversity Hospitals Ahuja Medical Center12-06-2022 Miscellaneous Notes* Telephone Encounter - LEVAR Jasmine - 10/09/2022 8:44 AM EST Patient has been identified by name and date of : Yes Patient phones for refill(s): Requested Prescriptions Pending Prescriptions Disp Refills topiramate (TOPAMAX) 100 mg tablet 60 tablet 2 Sig: Take 1 tablet by mouth twice daily. Date of last office visit in primary care: [facility] 07/19/2022 with Karen Bansal APRN.EBD TEACHER No appointment scheduled [facility] Notes: Plan: All options for treatment [...] Thank you. LEVAR Jasmine documented in this encounterUniversity Hospitals Ahuja Medical Center12-02-2022 Miscellaneous Notes* Telephone Encounter - Quinn Lazo LPN - 10/05/2022 8:41 AM EST Patient phones requesting refills as follows: Requested Prescriptions Pending Prescriptions Disp Refills tiZANidine (ZANAFLEX) 4 mg tablet 20 tablet 0 Sig: Take 1 tablet by mouth every 8 hours as needed. [facility] 09/04/22 NOV 11/01/22 Please review and advise. Quinn Lazo LPN documented in this encounterUniversity Hospitals Ahuja Medical Center11-29-2022 Miscellaneous Notes* Telephone Encounter - [...] can do? Adriana Licona documented in this encounterUniversity Hospitals Ahuja Medical Center11-16-2022 Miscellaneous Notes* Telephone Encounter - [...] you. Lubna Yoon LPN documented in this encounterUniversity Hospitals Ahuja Medical Center11-09-2022 History of Present illness Narrative* WELLINGTON Fine - 09/12/2022 1:57 PM EST BEHAVIORAL HEALTH SOCIAL WORK QUICK NOTE Provider Action/RADHAI Needs appointment scheduled with Grace Coronel CNP. Will forward chart to Grace and her RESIDENT MEDICAL OFFICER to assist with scheduling. Patient identified for [facility] from: PCP Reason for referral: Resources Behavioral Health Resources: Psychiatry med management;Psychology - talk therapy [facility] encounter type: Chart Review Attempts [...] . [facility], specifically Grace Coronel, EBD TEACHER at therequest of pt's PCP. SW will route chart to Grace and her nurse, Coretta Spain who can assist with patient scheduling. Patient states she's on a wait list for counseling at agencies near her home. No needs further from this SW at this time. WELLINGTON Fine, ACM-SW documented in this encounterUniversity Hospitals Ahuja Medical Center11-09-2022 Miscellaneous Notes* Addendum Note - Ivette Grimes MD - 09/12/2022 1:19 PM ESTAddended by: IVETTE GRIMES on: 09/12/2022 01:19 PM Modules accepted: Orders * Telephone Encounter - Ivette Grimes MD - 09/12/2022 1:18 PM EST Needs set up with Grace documented in this encounterUniversity Hospitals Ahuja Medical Center11-03-2022 Miscellaneous Notes* Telephone Encounter - Nakia Caraballo RN - 09/06/2022 12:44 PM EDT Patient is scheduled for botox on 09/13/22 at 1:30 pm with Kaylen. Latonia Caraballo RN documented in this encounterUniversity Hospitals Ahuja Medical Center11-01-2022 Miscellaneous Notes* Telephone Encounter - Jovana Blackwell MA - 09/04/2022 3:01 PM EDT Clarified with patient [facility] will be receiving 2 new providers able to administer injections. Patient will continue with plan to stay within [facility] for injections & just follow up in [place] when neuro providers are available to schedule. Jovana Blackwell MA documented in this encounterUniversity Hospitals Ahuja Medical Center11-01-2022 History of Past illness Narrative* [...] of this encounter (statuses as of 09/04/2022) [facility]11-01-2022 History of Past illness Narrative* [...] of this encounter (statuses as of 09/04/2022) [facility]11-01-2022 History of Past illness Narrative* [...] of this encounter (statuses as of 09/06/2022) [facility]11-01-2022 History of Past illness Narrative* [...] of this encounter (statuses as of 09/07/2022) [facility]11-01-2022 History of Past illness Narrative* [...] of this encounter (statuses as of 09/12/2022) [facility]11-[facility]-20[facility] History of Past illness Narrative* [...] of this encounter (statuses as of 09/12/2022) [facility]11-01-2022 History of Past illness Narrative* [...] of this encounter (statuses as of 09/12/2022) [facility] History of Past illness Narrative* [...] of this encounter (statuses as of 09/19/2022) [facility]11-[facility]-20[facility] History of Past illness Narrative* [...] of this encounter (statuses as of 10/02/2022) [facility] History of Past illness Narrative* [...] of this encounter (statuses as of 10/05/2022) [facility] History of Past illness Narrative* [...] of this encounter (statuses as of 10/09/2022) [facility] History of Past illness Narrative* [...] of this encounter (statuses as of 10/18/2022) [facility] History of Past illness Narrative* [...] of this encounter (statuses as of 10/21/2022) [facility] History of Past illness Narrative* [...] of this encounter (statuses as of 11/09/2022) [facility] History of Past illness Narrative* [...] of this encounter (statuses as of 11/15/2022) [facility] History of Past illness Narrative* [...] of this encounter (statuses as of 11/21/2022) [facility] History of Past illness Narrative* [...] of this encounter (statuses as of 11/23/2022) [facility] History of Past illness Narrative* [...] of this encounter (statuses as of 11/27/2022) [facility] History of Past illness Narrative* [...] of this encounter (statuses as of 11/29/2022) [facility] History of Past illness Narrative* [...] of this encounter (statuses as of 11/30/2022) [facility] of Past illness Narrative* [...] of this encounter (statuses as of 12/04/2022) [facility] of Past illness Narrative* [...] of this encounter (statuses as of 12/08/2022) [facility] of Past illness Narrative* [...] of this encounter (statuses as of 12/08/2022) [facility] of Past illness Narrative* [...] of this encounter (statuses as of 12/11/2022) [facility] of Past illness Narrative* [...] of this encounter (statuses as of 12/11/2022) [facility] of Past illness Narrative* [...] of this encounter (statuses as of 12/14/2022) [facility] of Past illness Narrative* [...] of this encounter (statuses as of 12/21/2022) [facility] of Past illness Narrative* [...] of this encounter (statuses as of 12/25/2022) [facility] of Past illness Narrative* [...] of this encounter (statuses as of 12/26/2022) [facility] of Past illness Narrative* [...] of this encounter (statuses as of 12/26/2022) [facility] of Past illness Narrative* [...] of this encounter (statuses as of 01/04/2023) [facility] Past illness Narrative* [...] of this encounter (statuses as of 01/07/2023) [facility] Past illness Narrative* [...] of this encounter (statuses as of 01/10/2023) [facility] Past illness Narrative* [...] of this encounter (statuses as of 01/11/2023) [facility] Past illness Narrative* [...] of this encounter (statuses as of 01/15/2023) [facility] illness Narrative* [...] of this encounter (statuses as of 01/17/2023) [facility] illness Narrative* [...] of this encounter (statuses as of 01/22/2023) [facility] Narrative* [...] of this encounter (statuses as of 01/24/2023) [facility] Narrative* [...] of this encounter (statuses as of 01/31/2023) [facility] illness Narrative* [...] of this encounter (statuses as of 01/31/2023) [facility] Narrative* [...] of this encounter (statuses as of 02/11/2023) [facility] Narrative* [...] of this encounter (statuses as of 02/14/2023) [facility] Narrative* [...] of this encounter (statuses as of 02/16/2023) [facility] Narrative* [...] of this encounter (statuses as of 02/25/2023) [facility] Narrative* [...] of this encounter (statuses as of 02/27/2023) [facility] illness Narrative* [...] of this encounter (statuses as of 02/28/2023) [facility] illness Narrative* [...] of this encounter (statuses as of 03/01/2023) [facility] illness Narrative* [...] of this encounter (statuses as of 03/01/2023) [facility] illness Narrative* [...] of this encounter (statuses as of 03/04/2023) [facility] illness Narrative* [...] of this encounter (statuses as of 03/05/2023) [facility] illness Narrative* [...] of this encounter (statuses as of 03/05/2023) [facility] Narrative* [...] of this encounter (statuses as of 03/05/2023) [facility] illness Narrative* [...] of this encounter (statuses as of 03/13/2023) [facility] Narrative* [...] of this encounter (statuses as of 03/20/2023) [facility] Narrative* [...] of this encounter (statuses as of 03/20/2023) [facility] Narrative* [...] of this encounter (statuses as of 04/05/2023) [facility] Narrative* [...] of this encounter (statuses as of 05/08/2023) [facility] Narrative* [...] of this encounter (statuses as of 05/17/2023) [facility] illness Narrative* [...] of this encounter (statuses as of 05/29/2023) [facility] illness Narrative* [...] of this encounter (statuses as of 05/30/2023) [facility] Narrative* [...] of this encounter (statuses as of 06/06/2023) [facility] Narrative* [...] of this encounter (statuses as of 06/08/2023) [facility] Narrative* [...] of this encounter (statuses as of 06/10/2023) [facility] Narrative* [...] of this encounter (statuses as of 06/22/2023) [facility] Narrative* [...] of this encounter (statuses as of 07/05/2023) [facility] Narrative* [...] of this encounter (statuses as of 07/09/2023) [facility] Narrative* [...] of this encounter (statuses as of 08/23/2023) [facility] Narrative* [...] of this encounter (statuses as of 08/26/2023) [facility] Narrative* [...] of this encounter (statuses as of 09/08/2023) [facility] Narrative* [...] of this encounter (statuses as of 09/10/2023) [facility] Narrative* [...] of this encounter (statuses as of 09/25/2023) [facility] Narrative* [...] of this encounter (statuses as of 10/14/2023) [facility] Narrative* [...] of this encounter (statuses as of 10/15/2023) [facility] Narrative* [...] of this encounter (statuses as of 10/16/2023) [facility] Narrative* [...] of this encounter (statuses as of 12/06/2023) [facility] Instructions* Patient Instructions* Ivette Grimes MD - 09/04/2022 12:13 PM EDT [facility]ing [facility] [address] [place] [address] *counseling [facility] [address], [facility] [phone] *counseling [place] [address] [place] [address] *counseling [facility] [address] [place], [place] [address] *counseling and psychiatry [address] [address] *counseling [place] [address] [place] [address] *counseling [place] [address] [place] [place] [address] *counseling [place] [address] [place] [address] *counseling [facility] [address] [place], [place] [id number] [facility] [address], [address] [place] [address] *counseling [facility] [address] [place], [place] [id number] [employer] [address] [place], [place] [id number] *counseling Rosio Chat[facility] [address] [place] [place] [id number] [employer] [address] [place] [address] [place] [address] *counseling [employer] [address] [facility] [address] [place], [place] [phone] *counseling [facility] Office [address] [place], [place] [phone] *counseling and psychiatry [facility], [facility] [address] [address] [place], [place] [address] *psychiatry [facility] [phone] *grief counseling, individual and groups *If you ever experience a mental health crisis please call [phone], [phone], Please verify with insurance provider for coverage Provide services on a sliding fee scale for [facility] residents. [facility] [address] [place] [phone] *Counseling [facility] Office [address] [place], [place] [address] *Counseling, Psychiatry and Case Management [address] [address] *Counseling [place] [address] [place] [address] *Counseling [place] [address] [place] [address] *Counseling [place] [address] [place] [address] *Counseling [facility] [address] [place] [address] *Counseling/mental health and substance use treatment [facility] [address] [address] [place] [address] [place], [place] [address] [facility] [address] [place] [address] *Addiction services, services for victims of domestic violence and sexual assault, housing services [facility] -safe, alcohol and drug free environment [facility] [phone] *free grief services, individual and group *If you ever experience a mental health crisis please contact [phone], 911 or go to the nearest ER. Please verify with insurance provider for coverage documented in this encounterUniversity Hospitals Ahuja Medical Center11-01-2022 History of Present illness Narrative* [...] for depression. Was seen by cardiology in [place] who referred her to EPS. Appt is [...] in bed with current PAP mask. Ipratropium What Cheer (ATROVENT) 0.03 % nasal spray Use 2 Sprays in the nose every 12 hours. metroNIDAZOLE (METROGEL) 0.75 % Topical Gel Apply to affected area twice daily. [place]-3 Fatty Acids (FISH OIL) 500 mg cap Take 1 capsule by mouth once daily. blood sugar diagnostic (BLOOD GLUCOSE TEST) test strip Test blood sugar(s) 1 times daily. Dx: Type 2 DM - Controlled E11.9 Insulin: Yes Lancets lancets Test blood sugar(s) 1 times daily. Dx: Type 2 DM - Controlled E11.9 Insulin: No Bkkjhoxd-Bo-Rnz-Fe-FA tab Take 1 tablet by mouth once [...] Age of Onset Alcohol/Drug Mother Heart Father DC Cancer Father PANCREATIC CANCER Diabetes Father Diabetes [...] treatment. Ivette Grimes MD documented in this encounterUniversity Hospitals Ahuja Medical Center10-31-2022 History of Present illness Narrative* [...] in bed with current PAP mask. Ipratropium What Cheer (ATROVENT) 0.03 % nasal spray Use 2 Sprays in the nose every 12 hours. metroNIDAZOLE (METROGEL) 0.75 % Topical Gel Apply to affected area twice daily. [place]-3 Fatty Acids (FISH OIL) 500 mg cap Take 1 capsule by mouth once daily. blood sugar diagnostic (BLOOD GLUCOSE TEST) test strip Test blood sugar(s) 1 times daily. Dx: Type 2 DM - Controlled E11.9 Insulin: Yes Lancets lancets Test blood sugar(s) 1 times daily. Dx: Type 2 DM - Controlled E11.9 Insulin: No Nupocwnq-Lx-Hxz-Fe-FA tab Take 1 tablet by mouth once [...] Age of Onset Alcohol/Drug Mother Heart Father DC Cancer Father PANCREATIC CANCER Diabetes Father Diabetes [...] in am in person documented in this encounterUniversity Hospitals Ahuja Medical Center10-18-2022 Miscellaneous Notes* Telephone Encounter - Nakia Caraballo RN - 08/21/2022 1:02 PM EDT Botox approved 08/15/22-01/30/23. Patient made aware that we will get her scheduled. Latonia Caraballo RN documented in this encounterUniversity Hospitals Ahuja Medical Center10-05-2022 Miscellaneous Notes* Telephone Encounter - Adelina Mason APRN.EBD TEACHER - 08/08/2022 12:53 PM EDT Please advise patient insurance will not approve the RFA of her shoulder. Another option would be to repeat the LEFT scapular NB, but with steroids for a therapeutic effect. If she would like to proceed with this option please let me know and will place the order. Thank you, Adelina Mason APRN.GABRIELA documented in this encounterUniversity Hospitals Ahuja Medical Center10-05-2022 Miscellaneous Notes* Telephone Encounter - Brittney Cueto - 08/08/2022 10:08 AM EDT Spoke with the patient she has not heard back from [facility] will try them again if not able to reach them she will call [facility] back to schedule. documented in this encounterUniversity Hospitals Ahuja Medical Center09-30-2022 Miscellaneous Notes* Telephone Encounter - Karen Bansal APRN.CNP - 08/03/2022 10:33 AM EDT Rizatriptan sent to pharmacy. Stop sumatriptan. * Telephone Encounter - Nakia Caraballo RN - 08/03/2022 9:03 AM EDT Patient reporting that sumatriptan is not helping migraines. Asking for another treatment. Botox referral was sent but still pending. Latonia Caraballo RN documented in this encounterUniversity Hospitals Ahuja Medical Center09-29-2022 History of Present illness Narrative* [...] her cpap. Needs new machine. Sees her security agent soon. . Will be seeing cardiology. Had [...] in bed with current PAP mask. Ipratropium What Cheer (ATROVENT) 0.03 % nasal spray Use 2 Sprays in the nose every 12 hours. metroNIDAZOLE (METROGEL) 0.75 % Topical Gel Apply to affected area twice daily. [place]-3 Fatty Acids (FISH OIL) 500 mg cap Take 1 capsule by mouth once daily. blood sugar diagnostic (BLOOD GLUCOSE TEST) test strip Test blood sugar(s) 1 times daily. Dx: Type 2 DM - Controlled E11.9 Insulin: Yes Lancets lancets Test blood sugar(s) 1 times daily. Dx: Type 2 DM - Controlled E11.9 Insulin: No Rwlusebh-Sz-Rem-Fe-FA tab Take 1 tablet by mouth once [...] Age of Onset Alcohol/Drug Mother Heart Father DC Cancer Father PANCREATIC CANCER Diabetes Father Diabetes [...] RTO in six months documented in this encounterUniversity Hospitals Ahuja Medical Center09-28-2022 Miscellaneous Notes* Telephone Encounter - Nakia Caraballo RN - 08/01/2022 1:21 PM EDT Botox referral sent to pharmacy. Latonia Caraballo RN documented in this encounterUniversity Hospitals Ahuja Medical Center09-19-2022 Miscellaneous Notes* Telephone Encounter - [...] 07/2022 Last refill: 07/2021 documented in this encounterUniversity Hospitals Ahuja Medical Center09-15-2022 Instructions* Patient Instructions* Gabi Cornelius [...] Feverfew: Feverfew is a common garden herb [place] to [place] and popular in [place] [...] pepperoni, Pickled leblanc Pods of broad jaquez (Costa Rican beans, Surinamese pea pods, English (antwan) beans, saldana and navy beans Ripe [...] too muchlight. These can be obtained at Adult[employer]aces[employer] or [employer]ma[employer] Foods: see list above. 2. Limit use of acute treatments (vnoj-xmx-umjkipf medications, triptans, etc.) to no more than [...] and quiet environment. Relax and reduce stress. Ysfrhdy9Seqvx is a free félix that can instruct you on some simple relaxtionand breathing techniques. Http://ShowEvidence is a free website that provides teaching [...] ensuing treatment plans will be released via Igenica and discussedduring your follow-up appointment. MyChart: Please ask the schedulers to give you an activation code. The main way of communication isby Resistentia Pharmaceuticalshart rather than phone lines, so if you have not signed up, please do so. Igenica is also theway that you can review your labs and testing. We are not able to contact everyone to tell them results are normal. If you do not hear back from us regarding testing you have had, it should be considered normal or within normal range. If you have any questions about the results, you are free to message us. SOAK (Smart Operational Agricultural toolKit)t is meant for simple questions regarding medications, possible side effects, or other simplestraight forward questions in limited sentences, rather than multiple paragraphs of discussion. Igenica is not meant for, or efficient for [...] do not comment on most testing on Glycosan in a message or commentary unless there is a concern. You will not receive a message from me of the result unless there is a specific concern of the result I need you to address further in care with us or your primary medical team. Make sure to check your my chart email or félix. documented in this encounterUniversity Hospitals Ahuja Medical Center09-15-2022 History of Present illness Narrative* Karen Bansal APRN.CNP - 07/19/2022 1:00 PM EDT Images from the original note were not included. [facility] General Neurology New Patient Headache [...] Description Onset: Early 30's. 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 Denies upon wakening. Total headache days per [...] Outside imaging reviewed Lab work obtained from [facility] and reviewed Blood studies 02/07/2022 [...] Age of Onset Alcohol/Drug Mother Heart Father DC Cancer Father PANCREATIC CANCER Diabetes Father Diabetes [...] in bed with current PAP mask. Ipratropium What Cheer (ATROVENT) 0.03 % nasal spray Use 2 Sprays in the nose every 12 hours. metroNIDAZOLE (METROGEL) 0.75 % Topical Gel Apply to affected area twice daily. [place]-3 Fatty Acids (FISH OIL) 500 mg cap Take 1 capsule by mouth once daily. blood sugar diagnostic (BLOOD GLUCOSE TEST) test strip Test blood sugar(s) 1 times daily. Dx: Type 2 DM - Controlled E11.9 Insulin: Yes Lancets lancets Test blood sugar(s) 1 times daily. Dx: Type 2 DM - Controlled E11.9 Insulin: No Uiowzgtu-Vu-Xmb-Fe-FA tab Take 1 tablet by mouth once [...] Finger Abduction (U) 5 Finger Abduction 5 Heel Painter 5 Heel Painter 5 Right Lower Extremity: (of 5) Left [...] device: independent Romberg's sign is negative. IMPRESSION/PLAN: (G43.089) Intractable chronic migraine without aura and without [...] days a month: 3 Gabi Cornelius APRN.GABRIELA [facility] General Neurology My impression and [...] which included preparing to see the patient, oaqi-ib-wikc patient care, completing clinical documentation, obtaining and/or [...] recommendations. Karen Bansal APRN.GABRIELA documented in this encounterUniversity Hospitals Ahuja Medical Center09-15-2022 NoteHNO ID: [id number] Author: Adelina Mason APRN.GABRIELA Service: ? Author Type: Nurse Practitioner Type: Progress Notes Filed: 07/19/2022 10:17 AM Note Text: [facility] Today's Date: 07/19/2022 Last Visit: 05/24/22 [...] (A) 74 - 99 mg/dL Final Comment: Location:[facility] Pain, [address] [facility] [address], [place], [place], [facility] The Accu-Chek Inform II glucose [...] activity was identified. 07/19/2022 by Adelina Mason APRN.EBD TEACHER Last Drug screen: Not Applicable Risk Assessment: [...] No visible regional lymphad (more content not included)...[facility]09-15-2022 NoteHNO ID: [id number] Author: Tiana Cifuentes MA Service: ? Author Type: Electrical Inspector Type: Progress Notes Filed: 07/19/2022 10:17 AM [...] and suicidal ideas. The patient is not nervous/anxious.[facility]09-15-2022 Miscellaneous Notes* Telephone Encounter - [...] year? Yes If yes, When and Where? [employer], currently attending (Medical Records Release needs to [...] COVID vaccine.) Pankaj Murillo documented in this encounterUniversity Hospitals Ahuja Medical Center09-06-2022 Miscellaneous Notes* Telephone Encounter - Ingrid Salmon Ma - 07/10/2022 1:55 PM EDT Last office visit: 05/01/22 F/u scheduled: 08/02/22 Ingrid Salmon Ma documented in this encounterUniversity Hospitals Ahuja Medical Center08-30-2022 Miscellaneous Notes* Telephone Encounter - [...] and PM. Note, lab work obtained from [facility] and reviewed. Given persistence of [...] no mask leak. Please advise. Thank you. LEVRA Jasmine documented in this encounterUniversity Hospitals Ahuja Medical Center08-19-2022 Miscellaneous Notes* Telephone Encounter - [...] refill: 06/06/2022 20 tablets documented in this encounterUniversity Hospitals Ahuja Medical Center08-04-2022 Miscellaneous Notes* Telephone Encounter - LEVAR Jasmine - 06/07/2022 4:24 PM EDT Orders and APRLI Notes faxed to [facility] to service pts PAP due to compliance reports and data no longerbeing able to be pulled from device. ELVAR Jasmine documented in this encounterUniversity Hospitals Ahuja Medical Center08-04-2022 History of Present illness Narrative* Tara Gillette APRN.EBD TEACHER - 06/07/2022 3:30 PM EDT Images from the original note were not included. 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 3. LETITIA (obstructive sleep apnea) [...] when sleepy. Advised pt to avoid ozone rn bsn. Usually getting about 7 hours of sleep. [...] in bed with current PAP mask. Ipratropium What Cheer (ATROVENT) 0.03 % nasal spray Use 2 Sprays in the nose every 12 hours. metroNIDAZOLE (METROGEL) 0.75 % Topical Gel Apply to affected area twice daily. [place]-3 Fatty Acids (FISH OIL) 500 mg cap Take 1 capsule by mouth once daily. blood sugar diagnostic (BLOOD GLUCOSE TEST) test strip Test blood sugar(s) 1 times daily. Dx: Type 2 DM - Controlled E11.9 Insulin: Yes Lancets lancets Test blood sugar(s) 1 times daily. Dx: Type 2 DM - Controlled E11.9 Insulin: No Vitdclhx-Rz-Xkg-Fe-FA ( FORMULA) ORAL Tab Take 1 tablet [...] and pattern. Labs/studies: Outside labs reviewed from [facility] collected on 06/05/22: CBC N [...] and PM. Note, lab work obtained from [facility] and reviewed. Given persistence of [...] which included preparing to see the patient, omee-wb-gpid patient care, completing clinical documentation, obtaining and/or reviewing separately obtained history, performing a medically appropriate examination, counseling and educating the pat ient/family/caregiver and ordering medications, tests, or procedures. documented in this encounterTracy [place] [id number] Miscellaneous Notes* Addendum Note - Ivette Grimes MD - 06/05/2022 1:46 PM EDT Addended by: IVETTE GRIMES on: 06/05/2022 01:46 PM Modules accepted: Orders * Telephone Encounter - Ivette Grimes MD - 06/05/2022 1:44 PM EDT Can send lab to [facility] to be done in two weeks documented in this encounterUniversity Hospitals Ahuja Medical Center07-26-2022 Miscellaneous Notes* Telephone Encounter - [...] says she had CMP andCBC done at [facility] on 02/09. These are in pt chart. Pt asking if she needs to have labs redrawn or if the ones done in February are sufficient. Please advise. Thank you. LEVAR Jasmine documented in this encounterUniversity Hospitals Ahuja Medical Center07-21-2022 NoteHNO ID: [id number] Author: Adelina Mason APRN.EBD TEACHER Service: ? 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 Author Type: Electrical Inspector Type: Progress Notes Filed: 05/24/2022 10:08 PM [...] and suicidal ideas. The patient is not nervous/anxious.[facility]07-21-2022 Instructions* Patient Instructions* Adelina Mason APRN.CNP - 05/24/2022 11:52 AM EDT Activity as tolerated Use Ice and/or heat as tolerated as needed documented in this encounterUniversity Hospitals Ahuja Medical Center07-21-2022 History of Present illness Narrative* Adelina Mason APRN.CNP - 05/24/2022 11:28 AM EDT Images from the original note were not included. 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 05/24/2022 by Adelina Mason APRN.EBD TEACHER Last Drug screen: Not Applicable Risk Assessment: [...] refill. UDS, NAOIC/ORT: up to date Functional Cheondoism: Physical Therapy (Land-based) Additional Studies: None Referrals: [...] decision making from today's date. Adelina Mason APRN.EBD TEACHER Pain Management [facility] * Gloria Oh MA - 05/24/2022 [...] patient is not nervous/anxious. documented in this encounterUniversity Hospitals Ahuja Medical Center07-08-2022 Miscellaneous Notes* Telephone Encounter - Livia Luna - 05/11/2022 3:17 PM EDT Left brief message asking patient to call back with any questions or concerns about a recent appointment. Livia Luna LPN May 11, 2022 3:18 PM documented in this encounterUniversity Hospitals Ahuja Medical Center07-07-2022 NoteHNO ID: [id number] Author: Mirna Lanza LPN Service: ? Author [...] and suicidal ideas. The patient is not nervous/anxious.[facility]07-07-2022 Nurse Note* Mirna Lanza LPN [...] tablePatient s procedure was performed in an [facility] Procedure room. Pause completed at each level [...] Lanza LPN - 05/10/2022 10:03 AM EDT Quarter Lining Smoother's Name: Marilynn Are you on a blood [...] to receive one? n documented in this encounterUniversity Hospitals Ahuja Medical Center07-07-2022 Instructions* Patient Instructions* Mirna Lanza [...] emergency care and why. documented in this encounterUniversity Hospitals Ahuja Medical Center07-07-2022 NoteHNO ID: [id number] Author: Elle Sanchez MD Service: ? Author Type: Physician Type: Progress Notes Filed: 05/10/2022 11:04 AM Note Text: [facility] Patient name: Tori Gray Date of : 1980 Today's date: 05/10/2022 Purpose: Ultrasound-guided injection Diagnosis: (M75.02) Adhesive capsulitis of left shoulder (primary encounter diagnosis) (M19.012) Primary osteoarthritis of left shoulder Procedure: Left Shoulder/Chest Suprascapular Nerve Block Beef Cattle Farm Worker: Elle Sanchez M.D. MStephanyB.A Comments: Allergy Due to the patient's reported history of allergy to Lidocaine, the following medication was substituted: Bupivacaine. Notes from Speech Language Pathology Assistant 01/2020 reviewed, she had skin testing to multiple local anesthetics and steroids, without any reaction, but advised that she avoid Lidocaine where possible due to unknown negative predictive value of the tests. Other anesthetics had been used with other procedures that did not have a reaction (eg Bupivacaine). [facility] protocol documentation / Pre-Procedure Checklist: ? ID [...] [facility] 05-10-2022 History of Present illness Narrative* [...] 8:23 AM EDT [facility] Patient name: Tori Gray Date of : 1980 Today's date: 05/10/2022 Purpose: Ultrasound-guided injection Diagnosis: (M75.02) Adhesive capsulitis of left shoulder (primary encounter diagnosis) (M19.012) Primary osteoarthritis of left shoulder Procedure: Left Shoulder/Chest Suprascapular Nerve Block Beef Cattle Farm Worker: Elle Sanchez M.D., M.B.A Comments: Allergy Due to the patient's reported history of allergy to Lidocaine, the following medication was substituted: Bupivacaine. Notes from Speech Language Pathology Assistant 01/2020 reviewed, she had skin testing to multiple local anesthetics and steroids, without any reaction, but advised that she avoid Lidocaine where possible due to unknown negative predictive value of the tests. Other anesthetics had been usedwith other procedures that did not have a reaction (eg Bupivacaine). [facility] protocol documentation / Pre-Procedure Checklist: ID verified [...] [facility] Pain [facility] documented in this encounterUniversity Hospitals Ahuja Medical Center07-05-2022 Miscellaneous Notes* Telephone Encounter - Lubna Yoon LPN - 05/08/2022 1:04 PM EDT Sent a Glycosan message * Telephone Encounter - Ivette Grimes MD - 05/08/2022 12:56 PM EDT I would recommend she follow up and see one of us here. documented in this encounterUniversity Hospitals Ahuja Medical Center06-30-2022 Miscellaneous Notes* Telephone Encounter - [...] advise. Jumana Harrell LPN documented in this encounterUniversity Hospitals Ahuja Medical Center06-28-2022 Instructions* Patient Instructions* Ivette Grimes [...] tabs twice a day. documented in this encounterUniversity Hospitals Ahuja Medical Center06-28-2022 History of Present illness Narrative* [...] in bed with current PAP mask. Ipratropium What Cheer (ATROVENT) 0.03 % nasal spray Use 2 [...] 2 DM - Controlled E11.9 Insulin: No Nlkpqlio-Kk-Ext-Fe-FA ( FORMULA) ORAL Tab Take 1 tablet by mouth once daily. [place]-3 Fatty Acids (FISH OIL) 500 mg cap [...] Age of Onset Alcohol/Drug Mother Heart Father DC Cancer Father PANCREATIC CANCER Diabetes Father Diabetes [...] three months and prn. documented in this encounterUniversity Hospitals Ahuja Medical Center06-16-2022 Miscellaneous Notes* Addendum Note - Ivette Grimes MD - 04/19/2022 2:41 PM EDT Addended by: IVETTE GRIMES on: 04/19/2022 02:41 PM Modules accepted: Orders documented in this encounterUniversity Hospitals Ahuja Medical Center06-13-2022 Miscellaneous Notes* Telephone Encounter - Ivette Mejia Jr., MD - 04/16/2022 6:04 PM EDT Please contact DME ([facility]) to determine if pt qualifies for new PAP device. If so, can order a new AutoBilevel PAP. Thank you, Ivette Mejia MD documented in this encounterUniversity Hospitals Ahuja Medical Center06-13-2022 Miscellaneous Notes* Telephone Encounter - Quinn Lazo LPN - 04/16/2022 10:28 AM EDT Patient phones requesting refills as follows: Pending Prescriptions Disp Refills TIZANIDINE 4 MG TABLET 20 tablet 0 Sig: Take 1 tablet by mouth every 8 hours as needed. CRISTINA: No APRIL 02/28/22 NOV 05/01/22 Please review and advise. Quinn Lazo LPN documented in this encounterUniversity Hospitals Ahuja Medical Center06-06-2022 Instructions* Patient Instructions* Ivette Mejia [...] Excedrin and Tylenol use. documented in this encounterUniversity Hospitals Ahuja Medical Center06-06-2022 History of Present illness Narrative* [...] this resolves mask issues. Rx sent to [facility]. During visit, discussed with patient: the physiology [...] in bed with current PAP mask. Ipratropium What Cheer (ATROVENT) 0.03 % nasal spray Use 2 Sprays in the nose every 12 hours. blood sugar diagnostic (BLOOD GLUCOSE TEST) test strip Test blood sugar(s) 1 times daily. Dx: Type 2 DM - Controlled E11.9 Insulin: Yes Lancets lancets Test blood sugar(s) 1 times daily. Dx: Type 2 DM - Controlled E11.9 Insulin: No Tqcxcqmw-Qp-Ndt-Fe-FA ( FORMULA) ORAL Tab Take 1 tablet by mouth once daily. metroNIDAZOLE (METROGEL) 0.75 % Topical Gel Apply to affected area twice daily. [place]-3 Fatty Acids (FISH OIL) 500 mg cap Take 1 capsule by mouth once daily. HISTORIES PAST MEDICAL HISTORY Diagnosis Date Acute cholecystitis Cholecystitis Anxiety 06/07/2014 Type 2 diabetes mellitus (HCC) FAMILY HISTORY Problem Relation Age of Onset Alcohol/Drug Mother Heart Father DC Cancer Father PANCREATIC CANCER Diabetes Father Diabetes [...] when sleepy. Advised pt to avoid ozone rn bsn. Ivette Mejia MD I spent a total of 40+ minutes on the date of the service which included preparing to see the patient, [id number] patient care, completing clinical documentation, obtaining and/or reviewing separately obtained history, performing a medically appropriate examination, counseling and educating the pa tient/family/caregiver, ordering medications, tests, or procedures, independently interpreting results (not separately reported) and communicating results to the patient/family/caregiver. documented in this encounterUniversity Hospitals [facility]06-02-2022 Miscellaneous Notes* Telephone Encounter - Helen Camacho LPN - 04/05/2022 9:51 AM EDT Last office visit 02/23/2022 documented in this encounterUniversity Hospitals Ahuja [facility] Center05-27-2022 Miscellaneous Notes* Telephone Encounter - Milena Rico LPN - 03/30/2022 11:08 AM EDT april-- 02/28/22 Next 05/01/22 Last refill-- 03/16/22 20 with 0 refills Last labs 02/07/22 documented in this encounterUniversity Hospitals Ahuja [facility] Center05-26-2022 Miscellaneous Notes* Telephone Encounter - [...] COVID vaccine.) Terese Cruz documented in this encounterUniversity Hospitals Ahuja Medical Center05-26-2022 NoteHNO ID: [id number] Author: Henna Boles MA Service: ? Author Type: Electrical Inspector Type: Progress Notes Filed: 03/29/2022 11:48 AM [...] and suicidal ideas. The patient is not nervous/anxious.[facility]05-26-2022 History of Present illness Narrative* [...] not included. [facility] Name: Tori Gray : 1980 Purpose: [...] 12/21/2021, noted she had an EMG at [facility] which was normal (Jul 2021). MRI shoulder had very minor degenerative changes. Non-surgical management was advised. 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 [...] (Meloxicam) and Lodine (Etodolac) Opioids: Vicodin or [place] (Hydrocodone) and Percocet (Oxycodone) Muscle Relaxants: Zanaflex [...] Referrals: No additional considerations at present Functional Cheondoism: No changes-continue current regimen Depending on response [...] [facility] documented in this encounterUniversity Hospitals Ahuja Medical Center05-26-2022 NoteHNO ID: [id number] Author: Elle Sanchez MD Service: ? Author Type: Physician Type: Progress Notes Filed: 03/29/2022 11:48 AM Note Text: [facility] Name: Tori Gray : 1980 Purpose: [...] 12/21/2021, noted she had an EMG at [facility] which was normal (Jul 2021). MRI shoulder had very minor degenerative changes. Non-surgical management was advised. 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 [...] (Meloxicam) and Lodine (Etodolac) Opioids: Vicodin or [place] (Hydrocodone) and Percocet (Oxycodone) Muscle Relaxants: Zanaflex [...] On today's date, noted (more content not included)...[facility]05-13-2022 Miscellaneous Notes* Telephone Encounter - Helen Camacho LPN - 03/16/2022 11:14 AM EDT Patient phones requesting refills as follows: Pending Prescriptions Disp Refills TIZANIDINE 4 MG TABLET 20 tablet 0 Sig: Take 1 tablet by mouth every 8 hours as needed. CRISTINA: No Please review and advise. Helen Camacho LPN documented in this encounterUniversity Hospitals Ahuja Medical Center05-02-2022 Miscellaneous Notes* Telephone Encounter - LEVAR Jasmine - 03/05/2022 9:36 AM EDT Patient has been identified by name and date of : Yes Patient phones for refill(s): Pending Prescriptions Disp Refills TIZANIDINE 4 MG TABLET 20 tablet 0 Sig: Take 1 tablet by mouth every 8 hours as needed. CRISTINA: No Date of last office visit in primary care: [facility] 02/28/2022 Appointment scheduled for 05/01/2022 Last 2 Encounter Wt Readings: Date: Wt: 02/28/2022 120.7 kg (266 lb) 01/25/2022 119.7 kg (264 lb) Please advise. Thank you. LEVAR Jasmine documented in this encounterUniversity Hospitals Ahuja Medical Center04-27-2022 History of Present illness Narrative* Ivette Grimes MD - 02/28/2022 4:43 PM EDT Patient presents with: ED Follow-up HPI: Patient presents today for office visit for follow up. Nursing Notes: Nirmala Storey LPN 02/28/2022 4:42 PM Signed HOSPITAL/ER FOLLOW UP: Reason for visit: back pain/headache(different pain not her chronic pain) Pain went from lower backup to shoulders. Which facility: [facility] Date of visit: 02/27/22 Diagnosis: [...] week as well. Happened all day yesterday. [place] different than her classic disc pain. Might [...] in bed with current PAP mask. Ipratropium What Cheer (ATROVENT) 0.03 % nasal spray Use 2 Sprays in the nose every 12 hours. metroNIDAZOLE (METROGEL) 0.75 % Topical Gel Apply to affected area twice daily. [place]-3 Fatty Acids (FISH OIL) 500 mg cap Take 1 capsule by mouth once daily. blood sugar diagnostic (BLOOD GLUCOSE TEST) test strip Test blood sugar(s) 1 times daily. Dx: Type 2 DM - Controlled E11.9 Insulin: Yes Lancets lancets Test blood sugar(s) 1 times daily. Dx: Type 2 DM - Controlled E11.9 Insulin: No Movgcehw-Px-Uqc-Fe-FA ( FORMULA) ORAL Tab Take 1 tablet [...] Age of Onset Alcohol/Drug Mother Heart Father DC Cancer Father PANCREATIC CANCER Diabetes Father Diabetes [...] six to eight weeks documented in this encounterUniversity Hospitals Ahuja Medical Center04-27-2022 Nurse Note* Nirmala Storey LPN - 02/28/2022 4:36 PM EDT HOSPITAL/ER FOLLOW UP: Reason for visit: back pain/headache(different pain not her chronic pain) Pain went from lower backup to shoulders. Which facility: [facility] Date of visit: 4/26/22 Diagnosis: back pain, hypertension Testing done: CT scan and labs Treatment given: no new changes Current symptoms: mild headache still and back pain, just feels off Was just feeling off. Aching. Cold chills. Scheduled with Dr Sanchez. documented in this encounterUniversity Hospitals Ahuja Medical Center04-26-2022 Miscellaneous Notes* Telephone Encounter - Quinn Lazo LPN - 02/27/2022 12:44 PM EDT Appt scheduled. Quinn Lazo LPN documented in this encounterUniversity Hospitals Ahuja Medical Center04-22-2022 Miscellaneous Notes* Telephone Encounter - [...] Thank you. LEVAR Jasmine documented in this encounterUniversity Hospitals Ahuja Medical Center04-06-2022 Miscellaneous Notes* Telephone Encounter - Nirmala Storey LPN - 02/07/2022 4:09 PM EDT [employer] message sent to patient. * Telephone Encounter - Ivette Grimes MD - 02/07/2022 3:38 PM EDT Let her her know her labs look great. * Telephone Encounter - Nirmala Storey LPN - 02/07/2022 2:33 PM EDT Received lab results from [facility]. Placed on desk for review. documented in this encounterUniversity Hospitals Ahuja Medical Center04-04-2022 Miscellaneous Notes* Telephone Encounter - Tessy Wadsworth Ma - 02/05/2022 12:25 PM EDT Labs faxed within [place] to update if there are any issues. Tessy Wadsworth Ma documented in this encounterUniversity Hospitals Ahuja Medical Center03-28-2022 Miscellaneous Notes* Telephone Encounter - [...] shoulder pain. Thank you! documented in this encounterUniversity Hospitals Ahuja Medical Center02-02-2013 History of Past illness Narrative* [...] of this encounter (statuses as of 01/30/2022) [facility] of Past illness Narrative* [...] of this encounter (statuses as of 02/05/2022) [facility] of Past illness Narrative* [...] of this encounter (statuses as of 02/07/2022) [facility] History of Past illness Narrative* [...] of this encounter (statuses as of 02/07/2022) [facility] of Past illness Narrative* [...] of this encounter (statuses as of 02/08/2022) [facility] of Past illness Narrative* [...] of this encounter (statuses as of 02/23/2022) [facility] of Past illness Narrative* [...] of this encounter (statuses as of 02/27/2022) [facility] of Past illness Narrative* [...] of this encounter (statuses as of 02/28/2022) [facility] of Past illness Narrative* [...] of this encounter (statuses as of 03/05/2022) [facility] of Past illness Narrative* [...] of this encounter (statuses as of 03/16/2022) [facility] of Past illness Narrative* [...] of this encounter (statuses as of 03/29/2022) [facility] of Past illness Narrative* [...] of this encounter (statuses as of 03/29/2022) [facility] of Past illness Narrative* [...] of this encounter (statuses as of 03/30/2022) [facility] of Past illness Narrative* [...] of this encounter (statuses as of 04/05/2022) [facility] of Past illness Narrative* [...] of this encounter (statuses as of 04/09/2022) [facility] of Past illness Narrative* [...] of this encounter (statuses as of 04/10/2022) [facility] of Past illness Narrative* [...] of this encounter (statuses as of 04/16/2022) [facility] of Past illness Narrative* [...] of this encounter (statuses as of 04/16/2022) [facility] of Past illness Narrative* [...] of this encounter (statuses as of 04/19/2022) [facility] of Past illness Narrative* [...] of this encounter (statuses as of 05/01/2022) [facility] of Past illness Narrative* [...] of this encounter (statuses as of 05/03/2022) [facility] of Past illness Narrative* [...] of this encounter (statuses as of 05/08/2022) [facility] of Past illness Narrative* [...] of this encounter (statuses as of 05/10/2022) [facility] of Past illness Narrative* [...] Lichenification and lichen simplex chronicus 01/23/2010 DERMATOFIBROMA///BENIGN [place] SKIN ARM 03/26/2007 01/23/2010 Contact dermatitis and other eczema, due to unspecified cause 03/26/2007 01/23/2010 Transient hypertension of , antepartum 06/19/2006 07/02/2006 Supervision of normal first 11/09/2005 07/02/2006 documented as of this encounter (statuses as of 05/11/2022) [facility] of Past illness Narrative* Problem Noted Date Resolved Date Routine general medical exam ination at a health care facility 12/06/2012 02/22/2014 Routine general medical exam ination at a [facility] care facility 01/23/2010 12/06/2012 Overview: 01/23/2010, from [...] of this encounter (statuses as of 05/25/2022) [facility] Narrative* [...] of this encounter (statuses as of 05/29/2022) [facility] Narrative* [...] of this encounter (statuses as of 06/05/2022) [facility] Narrative* [...] of this encounter (statuses as of 06/05/2022) [facility] Narrative* [...] of this encounter (statuses as of 06/07/2022) [facility] Narrative* [...] of this encounter (statuses as of 06/07/2022) [facility] Narrative* [...] of this encounter (statuses as of 06/22/2022) [facility] Narrative* [...] of this encounter (statuses as of 07/03/2022) [facility] Narrative* [...] of this encounter (statuses as of 07/10/2022) [facility] Narrative* [...] of this encounter (statuses as of 07/19/2022) [facility] Narrative* [...] of this encounter (statuses as of 07/19/2022) [facility] Narrative* [...] of this encounter (statuses as of 07/23/2022) [facility] Narrative* [...] of this encounter (statuses as of 08/01/2022) [facility] Narrative* [...] of this encounter (statuses as of 08/02/2022) [facility] Narrative* [...] of this encounter (statuses as of 08/03/2022) [facility] Narrative* [...] of this encounter (statuses as of 08/06/2022) [facility] Narrative* [...] of this encounter (statuses as of 08/08/2022) [facility] Narrative* [...] of this encounter (statuses as of 08/08/2022) [facility] Narrative* [...] of this encounter (statuses as of 08/08/2022) [facility] Narrative* [...] of this encounter (statuses as of 08/27/2022) [facility] Narrative* [...] of this encounter (statuses as of 09/03/2022) [facility] complaint+Reason for visit Narrative* Chief Complaint [...] dysfunction of thoracic region Disc displacement, lumbar [facility] Work Phone: Consult note Author Ankur Templeton [facility] Note Date/Time June 23, 2025 8: 58am [facility] Medical Records Department [address] [place] [address] Anesthesia Postop Eval I 06/23/25 0857 MR#: [id number] Acct: [id number] Name: TORI GRAY Rep #:[id number] : 1980 45 From: Ankur ROJO PCP: Dr. Ivette Grimes MD Status:REG S DC Y Race: C Location: [place] [address] Anesthesia: Postop Eval I Current Vital Signs [...] CRNA Cosigner Signature: Date CC: ~ Signed [facility] Work Phone: Discharge summary Author Sam Pearl [facility] February 04, 2024 3:49am Note Date/Time February 04, 2024 2:07 am [facility] Medical Records Department [address] [place] [id number] Emergency Department Summary 02/04/24 MR#: [id number] Acct: [id number] Name: TORI GRAY Rep #:[id number] : 1980 43 From: Sam Pearl MD [...] last A1c was in the 5.1 range. [facility] Medical History Abnormal ECG Acute [...] %) nasal spray 2 spray intranasal BID [id number]/20/20 [History Last Taken 08/03/23] omega-3 fatty acids [...] Neuro Narrative: Normal speech. No aphasia. Normal pvbwzb-rn-qdyq and frew-qq-kxea bilaterally. No confusion. 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 She describes visual disturbance being diffuse, [...] (Auto) 71.0 H Lymph % (Auto) 19.8 [place] % (Auto) 6.6 Eos % (Auto) 0.9 [...] Clarity Clear Urine pH 7.0 Ur Specific [place] 1.010 Urine Protein 15 H Urine Glucose [...] PRN (Reason: migraine headache) Primary Care Provider: Ivetet Grimes Referrals: Ivette Grimes MD [Primary Care Provider] - Disposition Disposition: Home, Self Care What to do if you have Problems For any increased pain, shortness of breath, bleeding, nausea or vomiting, chestpain, or any unexpected problems, contact your Primary Care Provider. Call [facility] ([phone]) or report to the closest Emergency Room. Call 911 if necessary. 02/04/24 0349 <Electronically signed by Sam Pearl MD> Cosigner Signature (if applicable): CC: Dr. Ivette Grimes MD ~ Signed [facility] Work Phone: Evaluation note* Diagnosis Onset Date [...] region acute Disc displacement, lumbar ch ronic [facility] Work Phone: Evaluation note* Diagnosis Upper back pain- Primary Acute midline low back pain without sciatica Type 2 diabetes mellitus with microalbuminuria, with long-term current use of insulin (HCC) LETITIA (obstructive sleep apnea) Obstructive sleep apnea (adult) (pediatric) Lumbar disc disorder Other and unspecified disc disorder of lumbar region Elevated BP without diagnosis of hypertension documented in this encounter [facility]* Diagnosis Myofascial pain- Primary Mylagia and myositis, unspecified Chronic left shoulder pain Pain in joint, shoulder region Neuropathic pain Neuralgia, neuritis, and radiculitis, unspecified Adhesive capsulitis of left shoulder Adhesive capsulitis of shoulder Primary osteoarthritis of left shoulder Primary localized osteoarthrosis, shoulder region documented in this encounter [facility]* Diagnosis Migraine without aura and without status migrainosus, not intractable Migraine without aura, without mention of intractable migraine without mention of status migrainosus documented in this encounter [facility]* Diagnosis Intractable migraine without [...] obesity type, unspecified whether serious comorbidity present ([facility]) documented in this encounter [facility]* Diagnosis Microalbuminuria- Primary Proteinuria [...] Shortness of breath [facility] Diagnosis Adhesive capsulitis of left shoulder- [...] and myositis, unspecified [facility] Proteinuria, unspecified type- Primary [...] comorbidity present (HCC) [facility] Diagnosis Intractable migraine without aura [...] of status migrainosus [facility] Diagnosis Onset Date Resolution Status [...] region acute Disc displacement, lumbar ch ronic [facility] Work Phone: Evaluation note* Diagnosis Type 2 diabetes mellitus with microalbuminuria, with long-term current use of insulin ([facility])- Primary Fatty liver Other chronic nonalcoholic liver disease LETITIA (obstructive sleep apnea) Obstructive sleep apnea (adult) (pediatric) Microalbuminuria Proteinuria Lumbar disc disorder Other and unspecified disc disorder of lumbar region Prolonged Q-T interval on ECG Nonspecific abnormal electrocardiogram (ECG) (EKG) Fatigue, unspecified type documented in this encounter [facility]* Diagnosis Onset Date Resolution [...] dysfunction of thoracic region chronic Obesity chronic [facility] Work Phone: Evaluation note* Diagnosis Onset Date [...] chronic Obesity chronic Type 2 diabetes mellitus [facility] Work Phone: Evaluation note* Diagnosis Malaise- Primary Other malaise and fatigue [facility] Diagnosis Onset Date Resolution Status [...] region acute Disc displacement, lumbar ch ronic [facility] Work Phone: Evaluation note* Diagnosis Lightheadedness- Primary Dizziness and giddiness Essential (primary) hypertension Unspecified essential hypertension Prolonged Q-T interval on ECG Nonspecific abnormal electrocardiogram (ECG) (EKG) Type 2 diabetes mellitus with microalbuminuria, with long-term current use of insulin (HCC) Fatty liver Other chronic nonalcoholic liver disease LETITIA (obstructive sleep apnea) Obstructive sleep apnea (adult) (pediatric) documented in this encounter [facility] Diagnosis Anxiety with depression- Primary documented in this encounter [facility]* Diagnosis Onset Date Resolution [...] region acute Disc displacement, lumbar ch ronic [facility] Work Phone: Evaluation note* Diagnosis Onset Date [...] region acute Disc displacement, lumbar ch ronic [facility] Work Phone: Evaluation note* Diagnosis VAHE (generalized anxiety disorder)- Primary Generalized anxiety disorder Major depressive disorder, recurrent episode, moderate (HCC) Major depressive disorder, recurrent episode, moderate documented in this encounter [facility] Diagnosis Chronic left shoulder pain- Primary Pain in joint, shoulder region Adhesive capsulitis of left shoulder Adhesive capsulitis of shoulder Neuropathic pain Neuralgia, neuritis, and radiculitis, unspecified Myofascial pain Mylagia and myositis, unspecified documented in this encounter [facility] Diagnosis Chronic left shoulder pain- Primary Pain in joint, shoulder region Adhesive capsulitis of left shoulder Adhesive capsulitis of shoulder Chronic left shoulder pain Pain in joint, shoulder region Adhesive capsulitis of left shoulder Adhesive capsulitis of shoulder documented in this encounter [facility] Diagnosis Microalbuminuria Proteinuria Type 2 diabetes [...] capsulitis of shoulder documented in this encounter [facility] Diagnosis Onset Date Resolution [...] region acute Disc displacement, lumbar ch ronic [facility] Work Phone: Evaluation note* Diagnosis Onset Date [...] thoracic region acute [facility] Work Phone: Evaluation note* Diagnosis Worst headache of life- Primary Headache Concussion with loss of consciousness, initial encounter Chronic left shoulder pain Pain in joint, shoulder region Adhesive capsulitis of left shoulder Adhesive capsulitis of shoulder [facility] Diagnosis Headache, unspecified headache type- Primary Concussion with loss of consciousness, initial encounter Chronic left shoulder pain Pain in joint, shoulder region Adhesive capsulitis of left shoulder Adhesive capsulitis of shoulder [facility] Diagnosis Post concussion syndrome- Primary [...] capsulitis of shoulder [facility] Diagnosis Headache, unspecified headache type- Primary Concussion with loss of consciousness, initial encounter Chronic left shoulder pain Pain in joint, shoulder region Adhesive capsulitis of left shoulder Adhesive capsulitis of shoulder [facility] Diagnosis Post concussion syndrome- Primary Postconcussion syndrome Essential (primary) hypertension Unspecified essential hypertension Microalbuminuria Proteinuria Type 2 diabetes mellitus without complication, with long-term current use of insulin ([facility]) Chronic left shoulder pain Pain in joint, shoulder region Adhesive capsulitis of left shoulder Adhesive capsulitis of shoulder [facility] Diagnosis Post concussion syndrome- Primary Postconcussion syndrome Essential (primary) hypertension Unspecified essential hypertension Chronic left shoulder pain Pain in joint, shoulder region Adhesive capsulitis of left shoulder Adhesive capsulitis of shoulder [facility] Diagnosis Post concussive syndrome- Primary Postconcussion syndrome Headache, unspecified headache type [facility] Diagnosis Post concussive syndrome- Primary Postconcussion syndrome Headache, unspecified headache type Injury of neck, subsequent encounter [facility] Diagnosis Onset Date Resolution Status [...] region acute Disc displacement, lumbar ch ronic [facility] Work Phone: Evaluation note* Diagnosis Intractable chronic migraine without aura and without status migrainosus- Primary Chronic migraine without aura, with intractable migraine, so stated, without mention of status migrainosus [facility] Diagnosis Chronic left shoulder [...] neck, subsequent encounter [facility] Diagnosis Soft tissue mass- Primary Disorders of soft tissue, unspecified documented [facility] this [facility]* Diagnosis VAHE (generalized anxiety disorder)- Primary Generalized anxiety disorder Recurrent major depressive disorder, in full remission (HCC) documented [facility] this [facility]* Diagnosis Onset Date Resolution Status [...] region acute Disc displacement, lumbar ch ronic [facility] Work Phone: Evaluation note* Diagnosis Anxiety- Primary Anxiety state, unspecified documented [facility]* Diagnosis Soft tissue mass- Primary Disorders of soft tissue, unspecified Post concussive syndrome Postconcussion syndrome Essential (primary) hypertension Unspecified essential hypertension Type 2 diabetes mellitus with microalbuminuria, with long-term current use of insulin (HCC) Headache, unspecified headache type Myalgia Mylagia and myositis, unspecified [facility] Diagnosis Post concussion syndrome- Primary Postconcussion syndrome LETITIA (obstructive sleep apnea) Obstructive sleep apnea (adult) (pediatric) documented [facility] Diagnosis Encounter for gynecological examination (general) (routine) without abnormal findings- Primary [facility] this [facility]* Diagnosis Post concussion syndrome- Primary Postconcussion syndrome LETITIA (obstructive sleep apnea) Obstructive sleep apnea (adult) (pediatric) Intractable acute post-traumatic headache Acute post-traumatic headache Altered awareness, transient Transient alteration of awareness [facility] Diagnosis Onset Date Resolution [...] of pelvic region acute Disc displacement, lumbar [facility] Work Phone: Evaluation note* Diagnosis Intractable chronic migraine without aura and without status migrainosus- Primary Chronic migraine without aura, with intractable migraine, so stated, without mention of status migrainosus Post concussive syndrome Postconcussion syndrome [facility] Diagnosis Onset Date Resolution [...] thoracic region acute Disc displacement, lumbar ch [facility] Work Phone: Evaluation note* Diagnosis Foot pain, right- Primary Pain in limb documented in this encounter [facility]* Diagnosis Type 2 diabetes mellitus [...] unspecified headache type [facility] Diagnosis Memory loss- Primary Attention [...] region acute Disc displacement, lumbar ch ronic [facility] Work Phone: Evaluation note* Diagnosis Post concussion syndrome Postconcussion syndrome Intractable acute post-traumatic headache Acute post-traumatic headache Dizziness Dizziness and giddiness Cervicalgia documented in this [facility]* Diagnosis Post concussive syndrome Postconcussion syndrome Headache, unspecified headache type documented [facility] this [facility] Diagnosis Onset Date Resolution Status [...] region acute Disc displacement, lumbar ch ronic [facility] Work Phone: Evaluation note* Diagnosis Onset Date [...] region acute Disc displacement, lumbar ch ronic [facility] Work Phone: Evaluation note* Diagnosis Essential (primary) hypertension- Primary Unspecified essential hypertension LETITIA (obstructive sleep apnea) Obstructive sleep apnea (adult) (pediatric) Fatty liver Other chronic nonalcoholic liver disease Vertigo Dizziness and giddiness Anxiety Anxiety state, unspecified [facility] Diagnosis Encounter for screening mammogram for malignant neoplasm of breast- Primary Other screening mammogram documented in this encounter [facility]* Diagnosis Onset Date Resolution Status [...] ronic Obesity chronic LETITIA (obstructive sleep apnea) [facility] Work Phone: Evaluation note* Diagnosis Intractable chronic migraine without aura and without status migrainosus- Primary Chronic migraine without aura, with intractable migraine, so stated, without mention of status migrainosus documented in this encounter [facility] note* Diagnosis Onset Date Resolution Status Obesity chronic LETITIA (obstructive sleep apnea) [facility] Work Phone: Evaluation note* Diagnosis Intractable chronic migraine without aura and without status migrainosus- Primary Chronic migraine without aura, with intractable migraine, so stated, without mention of status migrainosus [facility]* Diagnosis Headache, unspecified headache type [facility]* Diagnosis Headache, unspecified headache type [facility]* Diagnosis Left sided sciatica- Primary [...] or maintaining sleep [facility] Diagnosis Flank pain- Primary Abdominal [...] Unspecified sinusitis (chronic) [facility]* Diagnosis Encounter for screening mammogram for breast cancer [facility] Diagnosis LETITIA (obstructive sleep apnea)- Primary Obstructive sleep apnea (adult) (pediatric) Flank pain Abdominal pain, unspecified site Headache, unspecified headache type Type 2 diabetes mellitus with microalbuminuria, with long-term current use of insulin (HCC) Essential (primary) hypertension Unspecified essential hypertension Chronic left shoulder pain Pain in joint, shoulder region Anxiety Anxiety state, unspecified Screening for depression [facility]* Diagnosis Intractable chronic migraine without aura and without status migrainosus- Primary Chronic migraine without aura, with intractable migraine, so stated, without mention of status migrainosus Chronic left shoulder pain Pain in joint, shoulder region [facility] Diagnosis Intractable chronic migraine without aura and with status migrainosus- Primary Chronic migraine without aura, with intractable migraine, so stated, with status migrainosus [facility] Diagnosis Spasm of muscle [facility]* Diagnosis Flank pain Abdominal pain, unspecified site [facility] Diagnosis Well adult exam- Primary [...] for breast cancer documented [facility] this [facility]* Diagnosis LUQ pain Abdominal pain, left upper quadrant Flank pain Abdominal pain, unspecified site documented in this encounter [facility]* Diagnosis Type 2 diabetes mellitus with microalbuminuria, with long-term current use of insulin (HCC) [facility] Electrophysiology Location: None Selected [facility] Work Phone: Hospital Discharge instructions Additional Instructions [...] care physician for further outpatient evaluation and management.[facility] Work Phone: Reason for referral (narrative)* Diagnostic Procedure Only (Routine) - Pending Review Specialty Diagnoses / Procedures Referred By Contac t Referred To Contact XR IMAGING Diagnoses Rib pain Procedures XR RIBS/CHEST 3V AP RIB/OBLS/CXR LEFT RADEX RIBS UNI W/POSTEROANT CH MINIMUM 3 VIEWS Ivette Grimes MD [address] [place] [address] Xr Imaging Referral ID Status Reason Start Date Expiration Date Visits Requested Visits Authorized [id number] Pending Review Auto-Generat ed Referral 05/01/2022 05/31/2023 1 1 [facility] for referral (narrative)* - Pending Review Specialty Diagnoses / Procedures Referred By Contac t Referred To Contact Physical Therapy Diagnoses Chronic left shoulder pain Adhesive capsulitis of left shoulder Primary osteoarthritis of left shoulder Procedures CONSULT TO PHYSICAL THERAPY Adelina Mason, [employer].EBD TEACHER [address] [place] [address] Referral ID Status Reason Start Date Expiration Date V isits Requested Visits Authorized [id number] Pending Review 05/24/2022 08/22/2022 1 1 [facility] for referral (narrative)* Outpatient Procedure (Routine) - Closed Specialty Diagnoses / Procedures Referred By Contac t Referred To Contact [facility] Diagnoses Prolonged Q-T interval on ECG Procedures ECG COMPLETE ECG ROUTINE ECG W/LEAST 12 LDS W/I&R Ivette Grimes MD [address] [place] [address] [facility] [address] [place] [address] Referral ID Status Reason Start Date Expiration Date V isits Requested Visits Authorized [id number] Closed Auto-Generate d Referral 09/04/2022 09/04/2023 1 1 [facility] for referral (narrative)* Diagnostic Procedure Only (Routine) - Pending Review Specialty Diagnoses / Procedures Referred By Petra meek Referred To Contact US IMAGING Diagnoses Soft tissue mass Procedures US HEAD/NECK SOFT TISSUE OTHER US SOFT TISSUE HEAD & NECK REAL TIME IMGE DOCM Ivette Grimes MD [address] [place] [address] Us Imaging Referral ID Status Reason Start Date Expiration Date Visits Requested Visits Authorized [id number] Pending Review Auto-Generat ed Referral 01/31/2023 03/01/2024 1 1 [facility] for referral (narrative)* Outpatient Procedure (Routine) - Pending Review Specialty Diagnoses / Procedures Referred By Petra t Referred To Contact [facility] Diagnoses Altered awareness, transient Procedures EPIL EEG ROUTINE ELECTROENCEPHALOGRAM REC COMA/SLEEP ONLY Fatuma Beckford PA-C [address] [place] [address] [facility] [address] [place] [address] Referral ID Status Reason Start Date Expiration Date Visits Requested Visits Authorized [id number] Pending Review Auto-Generat ed Referral 03/05/2023 03/05/2024 1 1 [facility] for referral (narrative)* Diagnostic Procedure Only (Routine) - Pending Review Specialty Diagnoses / Procedures Referred By Petra t Referred To Contact BR IMAGING Diagnoses Encounter for screening mammogram for malignant neoplasm of breast Procedures FLASH SCREENING SCREENING MAMMOGRAPHY BI 2-VIEW BREAST INC CAD Ivette Grimes MD [address] [place] [address] [facility] [address] [place] [address] Referral ID Status Reason Start Date Expiration Date Visits Requested Visits Authorized [id number] Pending Review Auto-Generat ed Referral 06/06/2023 07/05/2024 1 1 * Transition of Care (Routine) - Ref Not Required Specialty Diagnoses / Procedures Referred By Contac t Referred To Contact Pain Management Diagnoses Chronic left shoulder pain Herniation of lumbar intervertebral disc with radiculopathy Procedures CONSULT TO PAIN MGT Ivette Grimes MD [address] [place] [address] Referral ID Status Reason Start Date Expiration Date Visits Requested Visits Authorized [id number] Ref Not Required PCP Requested Referral 06/06/2023 06/05/2024 1 1 [facility] Diagnostic Procedure Only (Routine) - Closed Specialty Diagnoses / Procedures Referred By Contac t Referred To Contact MR IMAGING Diagnoses Post concussion syndrome Intractable acute post-traumatic headache Dizziness Cervicalgia Procedures MRI CERVICAL SPINE WO IVCON MRI SPINAL CANAL CERVICAL W/O CONTRAST MATRL Ivette Mejia Jr., MD [address] [facility] [address] [place] [address] [place] [address] Referral ID Status Reason Start Date Expiration Date V isits Requested Visits Authorized [id number] Closed Auto-Generat ed Referral Patient Cleared - [...] CONTRAST MATERIAL Ivette Mejia Jr., MD [address] [facility] [address] [place] [address] [place] [address] Referral ID Status Reason Start Date Expiration Date V isits Requested Visits Authorized [id number] Closed Auto-Generat ed Referral Patient Cleared - Admin/Chairm an/Director advise to proceed or did not respond 02/26/2023 02/28/2023 1 1 [facility] for referral (narrative)* Diagnostic Procedure Only (Routine) - Pending Review Specialty Diagnoses / Procedures Referred By Contac t Referred To Contact BR IMAGING Diagnoses Encounter for screening mammogram for malignant neoplasm of breast Procedures FLASH SCREENING W JAQUELIN SCREENING DIGITAL BREAST TOMOSYNTHESIS BI SCREENING MAMMOGRAPHY BI 2-VIEW BREAST INC Ivette Rey MD [address] [place] [address] [facility] [address] [place] [address] Referral ID Status Reason Start Date Expiration Date Visits Requested Visits Authorized [id number] Pending Review Auto-Generat ed Referral 12/09/2023 01/07/2025 1 1 [facility] for referral (narrative)* Diagnostic Procedure Only (Urgent) - Closed Specialty Diagnoses / Procedures Referred By Petra meek Referred To Contact XR IMAGING Diagnoses Pain of right heel Procedures XR FOOT GENERAL 3V AP/LAT/OBL RIGHT RADEX FOOT COMPLETE MINIMUM 3 VIEWS Nicole Anton PA-C [address] [place] [address] [place] [address] Referral ID Status Reason Start Date Expiration Date V isits Requested Visits Authorized [id number] Closed Auto-Generate d Referral 05/28/2023 06/26/2024 1 1 [facility] for referral (narrative)No reason for referral information [facility] Work [facility]: Reason for visit Narrative* Diagnostic Procedure Only (Routine) - Closed Specialty Diagnoses / Procedures Referred By Vladimirac t Referred To Contact MR IMAGING Diagnoses Post concussion syndrome Intractable acute post-traumatic headache Dizziness Cervicalgia Procedures MRI CERVICAL SPINE WO IVCON MRI SPINAL CANAL CERVICAL W/O CONTRAST Ivette Ansari Jr., MD [address] [facility] [address] [place] [address] [place] [address] Referral ID Status Reason Start Date Expiration Date V isits Requested Visits Authorized [id number] Closed Auto-Generat ed Referral Patient Cleared - Admin/Chairm an/Director advise to proceed or did not respond 02/26/2023 02/28/2023 1 1 [facility] for visit Narrative* Diagnostic Procedure Only (Urgent) - Closed Specialty Diagnoses / Procedures Referred By Contac t Referred To Contact XR IMAGING Diagnoses Pain of right heel Procedures XR FOOT GENERAL 3V AP/LAT/OBL RIGHT RADEX FOOT COMPLETE MINIMUM 3 VIEWS Nicole Anton, PAReneeC [address] [place] [address] [place] [address] Referral ID Status Reason Start Date Expiration Date V isits Requested Visits Authorized [id number] Closed Auto-Generate d Referral 05/28/2023 06/26/2024 1 1 [facility] Family History No Family History [...] Will No November 21 3:58pm Power of Director [employer] No November 21, 2021 3:58pm Advance Directive Response Recorded Date/ Time Advance Directives No November 21, 2021 3:58pm Living Will No February 27, 2022 10:01am Power of Director [employer] No February 27 10:01am Advance Directive Response Recorded Date/ Time Advance Directives No November 21, 2021 2:58pm Living Will No February 27, 2022 9:01am Power of Director [employer] No February 27 9:01am Advance Directive Response Recorded Date/ Time Advance Directives No November 21, 2021 2:58pm Living Will No November 24 11:49am Power of Director [employer] No November 24, 2022 11:49am Advance Directive Response Recorded Date/ Time Advance Directives No November 21, 2021 2:58pm Living Will No November 27 3:43pm Power of Director [employer] No November 27, 2022 3:43pm Advance Directive Response Recorded Date/ Time Advance Directives No November 21, 2021 3:58pm Living Will No December 03 7:35pm Power of Director [employer] No December 03, 2022 7:35pm Advance Directive Response Recorded Date/ Time Advance Directives No November 21, 2021 3:58pm Living Will No May 20, 2023 9:41pm Power of Director [employer] No May 20 9:41pm Advance Directive Response Recorded Date/ Time Advance Directives No November 21, 2021 3:58pm Living Will No August 05 9:54am Power of Director [employer] No August 05 023 9:54am Advance Directive Response Recorded Date/ Time Advance Directives No November 21, 2021 2:58pm Living Will No August 05 12:04pm Power of Director [employer] No August 05 023 12:04pm Advance Directive Response Recorded Date/ Time Advance Directives No November 21, 2021 2:58pm Living Will No October 27, 2 023 4:06pm Power of Director [employer] No October 27, 2023 4:06pm Advance Directive Response Recorded Date/ Time Advance Directives No November 21, 2021 3:58pm Living Will No February 04, 2024 1:16am Power of Director [employer] No February 03 1:16am Advance Directive Response Recorded Date/ Time Advance Directives No October 07, 2024 8:43am Living Will No October 16, 2 024 10:17pm Do you have a Healthcare Power of Director Corporate Communications? No October 16, 2024 10:17pm Living Will No November 11 7:01am Do you have a Healthcare Power of Director Corporate Communications? No November 11, 2024 7:01am Advance Directive Response Recorded Date/ Time Advance Directives No March 09, 2025 9:20am Advance Directive Response Recorded Date/ Time Advance Directives No March 09, 2025 9:20am Do you have a Healthcare Power of Director Corporate Communications? No June 10, 2025 9:08am Medications Administered [...] [place] 60-74 MINUTES Tara Gillette APRN.EBD TEACHER [address] [place] [address] Referral ID Status Reason Start Date Expiration Date Visits Requested Visits Authorized [id number] Authorized PCP Requested Referral 06/07/2022 06/07/2023 1 1 Specialty Diagnoses / Procedures Referred By Petra meek Referred To Contact MR IMAGING Diagnoses Post concussion syndrome Intractable acute post-traumatic headache Dizziness Cervicalgia Procedures MRI CERVICAL SPINE WO IVCON MRI SPINAL CANAL CERVICAL W/O CONTRAST Ivette Ansari Jr., MD [address] [facility] [address] [place] [address] Mr Imaging Referral ID Status Reason Start Date Expiration Date Visits Requested Visits Authorized [id number] Pending Review Auto-Generat ed Referral 12/07/2022 01/06/2024 1 1 Specialty Diagnoses / Procedures Referred By Contac t Referred To Contact MR IMAGING Diagnoses Post concussion syndrome Intractable acute post-traumatic headache Dizziness Cervicalgia Procedures MRI BRAIN WO IVCON MRI BRAIN BRAIN STEM W/O CONTRAST MATERIAL Ivette Mejia Jr., MD [address] [address] Mr Imaging Referral ID Status Reason Start Date Expiration Date Visits Requested Visits Authorized [id number] Pending Review Auto-Generat ed Referral 12/07/2022 01/06/2024 1 1 Specialty Diagnoses / Procedures Referred By Contac t Referred To Contact CT IMAGING Diagnoses Soft tissue mass Procedures CT NECK SOFT TISSUE W IVCON CT SOFT TISSUE NECK W/CONTRAST MATERIAL Ivette Grimes MD [address] [place] [address] Ct Imaging Referral ID Status Reason Start Date Expiration Date Visits Requested Visits Authorized [id number] Pending Review Auto-Generat ed Referral 02/28/2023 03/29/2024 1 1 Specialty Diagnoses / Procedures Referred By Contac t Referred To Contact [facility] Diagnoses Post concussive syndrome Procedures CONSULT TO SPEECH THERAPY OFFICE/OUTPATIENT [facility] [place] 60-74 MINUTES Fatuma Beckford PA-C [address] [place] [address] [facility] [address] [place] [address] Referral ID Status Reason Start Date Expiration Date Visits Requested Visits Authorized [id number] Pending Review Auto-Generat ed Referral 05/17/2023 05/16/2024 1 1 Specialty Diagnoses / Procedures Referred By Contac t Referred To Contact Fatuma Beckford PA-C [address] [place] [address] Referral ID Status Reason Start Date Expiration Date Visits Re quested Visits Authorized [id number] Closed 1 1 Specialty Diagnoses / Procedures Referred By Contac t Referred To Contact Diagnoses Type 2 diabetes mellitus with microalbuminuria, with long-term current use of insulin ([facility]) Ivette Grimes MD [address] [place] [address] Referral ID Status Reason Start Date Expiration Date Visits Re quested Visits Authorized [id number] Closed 1 1 Chief Complaint and Reason [...] 2:21pm Segmental and somatic dysfunction of pel ajlil region February 04, 2025 2:21pm Segmental and [...] or prosecute any alcohol or drug abuse patient.[facility] the event this information is protected by the Federal Confidentiality of Alcohol and Drug Abuse Patient Records regulations: The Federal rules restrict any use of the information to criminally investigate or prosecute any alcohol or drug abuse patient.[facility] the event this information is protected by the Federal Confidentiality of Alcohol and Drug Abuse Patient Records regulations: The Federal rules restrict any use of the information to criminally investigate or prosecute any alcohol or drug abuse patient.[facility] Center[facility] the event this information is protected by the Federal Confidentiality of Alcohol and Drug Abuse Patient Records regulations: The Federal rules restrict any use of the information to criminally investigate or prosecute any alcohol or drug abuse patient.[facility] Center[facility] the event this information is protected by the Federal Confidentiality of Alcohol and Drug Abuse Patient Records regulations: The Federal rules restrict any use of the information to criminally investigate or prosecute any alcohol or drug abuse patient.[facility] CenterIn the event this information is protected by the Federal Confidentiality of Alcohol and Drug Abuse Patient Records regulations: The Federal rules restrict any use of the information to criminally investigate or prosecute any alcohol or drug abuse patient.[facility] CenterIn the event this information is protected by the Federal Confidentiality of Alcohol and Drug Abuse Patient Records regulations: The Federal rules restrict any use of the information to criminally investigate or prosecute any alcohol or drug abuse patient.[facility] CenterIn the event this information is protected by the Federal Confidentiality of Alcohol and Drug Abuse Patient Records regulations: The Federal rules restrict any use of the information to criminally investigate or prosecute any alcohol or drug abuse patient.[facility] CenterIn the event this information is protected by the Federal Confidentiality of Alcohol and Drug Abuse Patient Records regulations: The Federal rules restrict any use of the information to criminally investigate or prosecute any alcohol or drug abuse patient.[facility] CenterIn the event this information is protected by the Federal Confidentiality of Alcohol and Drug Abuse Patient Records regulations: The Federal rules restrict any use of the information to criminally investigate or prosecute any alcohol or drug abuse patient.[facility] CenterIn the event this information is protected by the Federal Confidentiality of Alcohol and Drug Abuse Patient Records regulations: The Federal rules restrict any use of the information to criminally investigate or prosecute any alcohol or drug abuse patient.[facility] CenterIn the event this information is protected by the Federal Confidentiality of Alcohol and Drug Abuse Patient Records regulations: The Federal rules restrict any use of the information to criminally investigate or prosecute any alcohol or drug abuse patient.[facility] CenterIn the event this information is protected by the Federal Confidentiality of Alcohol and Drug Abuse Patient Records regulations: The Federal rules restrict any use of the information to criminally investigate or prosecute any alcohol or drug abuse patient.[facility] CenterIn the event this information is protected by the Federal Confidentiality of Alcohol and Drug Abuse Patient Records regulations: The Federal rules restrict any use of the information to criminally investigate or prosecute any alcohol or drug abuse patient.[facility] CenterIn the event this information is protected by the Federal Confidentiality of Alcohol and Drug Abuse Patient Records regulations: The Federal rules restrict any use of the information to criminally investigate or prosecute any alcohol or drug abuse patient.[facility] CenterIn the event this information is protected by the Federal Confidentiality of Alcohol and Drug Abuse Patient Records regulations: The Federal rules restrict any use of the information to criminally investigate or prosecute any alcohol or drug abuse patient.[facility] CenterIn the event this information is protected by the Federal Confidentiality of Alcohol and Drug Abuse Patient Records regulations: The Federal rules restrict any use of the information to criminally investigate or prosecute any alcohol or drug abuse patient.[facility] CenterIn the event this information is protected by the Federal Confidentiality of Alcohol and Drug Abuse Patient Records regulations: The Federal rules restrict any use of the information to criminally investigate or prosecute any alcohol or drug abuse patient.[facility] CenterIn the event this information is protected by the Federal Confidentiality of Alcohol and Drug Abuse Patient Records regulations: The Federal rules restrict any use of the information to criminally investigate or prosecute any alcohol or drug abuse patient.[facility] CenterIn the event this information is protected by the Federal Confidentiality of Alcohol and Drug Abuse Patient Records regulations: The Federal rules restrict any use of the information to criminally investigate or prosecute any alcohol or drug abuse patient.[facility] CenterIn the event this information is protected by the Federal Confidentiality of Alcohol and Drug Abuse Patient Records regulations: The Federal rules restrict any use of the information to criminally investigate or prosecute any alcohol or drug abuse patient.[facility] CenterIn the event this information is protected by the Federal Confidentiality of Alcohol and Drug Abuse Patient Records regulations: The Federal rules restrict any use of the information to criminally investigate or prosecute any alcohol or drug abuse patient.[facility] CenterIn the event this information is protected by the Federal Confidentiality of Alcohol and Drug Abuse Patient Records regulations: The Federal rules restrict any use of the information to criminally investigate or prosecute any alcohol or drug abuse patient.[facility] CenterIn the event this information is protected by the Federal Confidentiality of Alcohol and Drug Abuse Patient Records regulations: The Federal rules restrict any use of the information to criminally investigate or prosecute any alcohol or drug abuse patient.[facility] CenterIn the event this information is protected by the Federal Confidentiality of Alcohol and Drug Abuse Patient Records regulations: The Federal rules restrict any use of the information to criminally investigate or prosecute any alcohol or drug abuse patient.[facility] CenterIn the event this information is protected by the Federal Confidentiality of Alcohol and Drug Abuse Patient Records regulations: The Federal rules restrict any use of the information to criminally investigate or prosecute any alcohol or drug abuse patient.[facility] CenterIn the event this information is protected by the Federal Confidentiality of Alcohol and Drug Abuse Patient Records regulations: The Federal rules restrict any use of the information to criminally investigate or prosecute any alcohol or drug abuse patient.[facility] CenterIn the event this information is protected by the Federal Confidentiality of Alcohol and Drug Abuse Patient Records regulations: The Federal rules restrict any use of the information to criminally investigate or prosecute any alcohol or drug abuse patient.[facility] CenterIn the event this information is protected by the Federal Confidentiality of Alcohol and Drug Abuse Patient Records regulations: The Federal rules restrict any use of the information to criminally investigate or prosecute any alcohol or drug abuse patient.[facility] CenterIn the event this information is protected by the Federal Confidentiality of Alcohol and Drug Abuse Patient Records regulations: The Federal rules restrict any use of the information to criminally investigate or prosecute any alcohol or drug abuse patient.[facility] CenterIn the event this information is protected by the Federal Confidentiality of Alcohol and Drug Abuse Patient Records regulations: The Federal rules restrict any use of the information to criminally investigate or prosecute any alcohol or drug abuse patient.[facility] CenterIn the event this information is protected by the Federal Confidentiality of Alcohol and Drug Abuse Patient Records regulations: The Federal rules restrict any use of the information to criminally investigate or prosecute any alcohol or drug abuse patient.[facility] CenterIn the event this information is protected by the Federal Confidentiality of Alcohol and Drug Abuse Patient Records regulations: The Federal rules restrict any use of the information to criminally investigate or prosecute any alcohol or drug abuse patient.[facility] CenterIn the event this information is protected by the Federal Confidentiality of Alcohol and Drug Abuse Patient Records regulations: The Federal rules restrict any use of the information to criminally investigate or prosecute any alcohol or drug abuse patient.[facility] CenterIn the event this information is protected by the Federal Confidentiality of Alcohol and Drug Abuse Patient Records regulations: The Federal rules restrict any use of the information to criminally investigate or prosecute any alcohol or drug abuse patient.[facility] CenterIn the event this information is protected by the Federal Confidentiality of Alcohol and Drug Abuse Patient Records regulations: The Federal rules restrict any use of the information to criminally investigate or prosecute any alcohol or drug abuse patient.[facility] CenterIn the event this information is protected by the Federal Confidentiality of Alcohol and Drug Abuse Patient Records regulations: The Federal rules restrict any use of the information to criminally investigate or prosecute any alcohol or drug abuse patient.[facility] CenterIn the event this information is protected by the Federal Confidentiality of Alcohol and Drug Abuse Patient Records regulations: The Federal rules restrict any use of the information to criminally investigate or prosecute any alcohol or drug abuse patient.[facility] CenterIn the event this information is protected by the Federal Confidentiality of Alcohol and Drug Abuse Patient Records regulations: The Federal rules restrict any use of the information to criminally investigate or prosecute any alcohol or drug abuse patient.[facility] CenterIn the event this information is protected by the Federal Confidentiality of Alcohol and Drug Abuse Patient Records regulations: The Federal rules restrict any use of the information to criminally investigate or prosecute any alcohol or drug abuse patient.[facility] CenterIn the event this information is protected by the Federal Confidentiality of Alcohol and Drug Abuse Patient Records regulations: The Federal rules restrict any use of the information to criminally investigate or prosecute any alcohol or drug abuse patient.[facility] CenterIn the event this information is protected by the Federal Confidentiality of Alcohol and Drug Abuse Patient Records regulations: The Federal rules restrict any use of the information to criminally investigate or prosecute any alcohol or drug abuse patient.[facility] CenterIn the event this information is protected by the Federal Confidentiality of Alcohol and Drug Abuse Patient Records regulations: The Federal rules restrict any use of the information to criminally investigate or prosecute any alcohol or drug abuse patient.[facility] CenterIn the event this information is protected by the Federal Confidentiality of Alcohol and Drug Abuse Patient Records regulations: The Federal rules restrict any use of the information to criminally investigate or prosecute any alcohol or drug abuse patient.[facility] CenterIn the event this information is protected by the Federal Confidentiality of Alcohol and Drug Abuse Patient Records regulations: The Federal rules restrict any use of the information to criminally investigate or prosecute any alcohol or drug abuse patient.[facility] CenterIn the event this information is protected by the Federal Confidentiality of Alcohol and Drug Abuse Patient Records regulations: The Federal rules restrict any use of the information to criminally investigate or prosecute any alcohol or drug abuse patient.[facility] CenterIn the event this information is protected by the Federal Confidentiality of Alcohol and Drug Abuse Patient Records regulations: The Federal rules restrict any use of the information to criminally investigate or prosecute any alcohol or drug abuse patient.[facility] CenterIn the event this information is protected by the Federal Confidentiality of Alcohol and Drug Abuse Patient Records regulations: The Federal rules restrict any use of the information to criminally investigate or prosecute any alcohol or drug abuse patient.[facility] CenterIn the event this information is protected by the Federal Confidentiality of Alcohol and Drug Abuse Patient Records regulations: The Federal rules restrict any use of the information to criminally investigate or prosecute any alcohol or drug abuse patient.[facility] CenterIn the event this information is protected by the Federal Confidentiality of Alcohol and Drug Abuse Patient Records regulations: The Federal rules restrict any use of the information to criminally investigate or prosecute any alcohol or drug abuse patient.[facility] CenterIn the event this information is protected by the Federal Confidentiality of Alcohol and Drug Abuse Patient Records regulations: The Federal rules restrict any use of the information to criminally investigate or prosecute any alcohol or drug abuse patient.[facility] CenterIn the event this information is protected by the Federal Confidentiality of Alcohol and Drug Abuse Patient Records regulations: The Federal rules restrict any use of the information to criminally investigate or prosecute any alcohol or drug abuse patient.[facility] CenterIn the event this information is protected by the Federal Confidentiality of Alcohol and Drug Abuse Patient Records regulations: The Federal rules restrict any use of the information to criminally investigate or prosecute any alcohol or drug abuse patient.[facility] CenterIn the event this information is protected by the Federal Confidentiality of Alcohol and Drug Abuse Patient Records regulations: The Federal rules restrict any use of the information to criminally investigate or prosecute any alcohol or drug abuse patient.[facility] CenterIn the event this information is protected by the Federal Confidentiality of Alcohol and Drug Abuse Patient Records regulations: The Federal rules restrict any use of the information to criminally investigate or prosecute any alcohol or drug abuse patient.[facility] CenterIn the event this information is protected by the Federal Confidentiality of Alcohol and Drug Abuse Patient Records regulations: The Federal rules restrict any use of the information to criminally investigate or prosecute any alcohol or drug abuse patient.[facility] CenterIn the event this information is protected by the Federal Confidentiality of Alcohol and Drug Abuse Patient Records regulations: The Federal rules restrict any use of the information to criminally investigate or prosecute any alcohol or drug abuse patient.[facility] CenterIn the event this information is protected by the Federal Confidentiality of Alcohol and Drug Abuse Patient Records regulations: The Federal rules restrict any use of the information to criminally investigate or prosecute any alcohol or drug abuse patient.[facility] CenterIn the event this information is protected by the Federal Confidentiality of Alcohol and Drug Abuse Patient Records regulations: The Federal rules restrict any use of the information to criminally investigate or prosecute any alcohol or drug abuse patient.[facility] CenterIn the event this information is protected by the Federal Confidentiality of Alcohol and Drug Abuse Patient Records regulations: The Federal rules restrict any use of the information to criminally investigate or prosecute any alcohol or drug abuse patient.[facility] CenterIn the event this information is protected by the Federal Confidentiality of Alcohol and Drug Abuse Patient Records regulations: The Federal rules restrict any use of the information to criminally investigate or prosecute any alcohol or drug abuse patient.[facility] CenterIn the event this information is protected by the Federal Confidentiality of Alcohol and Drug Abuse Patient Records regulations: The Federal rules restrict any use of the information to criminally investigate or prosecute any alcohol or drug abuse patient.[facility] CenterIn the event this information is protected by the Federal Confidentiality of Alcohol and Drug Abuse Patient Records regulations: The Federal rules restrict any use of the information to criminally investigate or prosecute any alcohol or drug abuse patient.[facility] CenterIn the event this information is protected by the Federal Confidentiality of Alcohol and Drug Abuse Patient Records regulations: The Federal rules restrict any use of the information to criminally investigate or prosecute any alcohol or drug abuse patient.[facility] CenterIn the event this information is protected by the Federal Confidentiality of Alcohol and Drug Abuse Patient Records regulations: The Federal rules restrict any use of the information to criminally investigate or prosecute any alcohol or drug abuse patient.[facility] CenterIn the event this information is protected by the Federal Confidentiality of Alcohol and Drug Abuse Patient Records regulations: The Federal rules restrict any use of the information to criminally investigate or prosecute any alcohol or drug abuse patient.[facility] CenterIn the event this information is protected by the Federal Confidentiality of Alcohol and Drug Abuse Patient Records regulations: The Federal rules restrict any use of the information to criminally investigate or prosecute any alcohol or drug abuse patient.[facility] CenterIn the event this information is protected by the Federal Confidentiality of Alcohol and Drug Abuse Patient Records regulations: The Federal rules restrict any use of the information to criminally investigate or prosecute any alcohol or drug abuse patient.[facility] CenterIn the event this information is protected by the Federal Confidentiality of Alcohol and Drug Abuse Patient Records regulations: The Federal rules restrict any use of the information to criminally investigate or prosecute any alcohol or drug abuse patient.[facility] CenterIn the event this information is protected by the Federal Confidentiality of Alcohol and Drug Abuse Patient Records regulations: The Federal rules restrict any use of the information to criminally investigate or prosecute any alcohol or drug abuse patient.[facility] CenterIn the event this information is protected by the Federal Confidentiality of Alcohol and Drug Abuse Patient Records regulations: The Federal rules restrict any use of the information to criminally investigate or prosecute any alcohol or drug abuse patient.[facility] CenterIn the event this information is protected by the Federal Confidentiality of Alcohol and Drug Abuse Patient Records regulations: The Federal rules restrict any use of the information to criminally investigate or prosecute any alcohol or drug abuse patient.[facility] CenterIn the event this information is protected by the Federal Confidentiality of Alcohol and Drug Abuse Patient Records regulations: The Federal rules restrict any use of the information to criminally investigate or prosecute any alcohol or drug abuse patient.[facility] CenterIn the event this information is protected by the Federal Confidentiality of Alcohol and Drug Abuse Patient Records regulations: The Federal rules restrict any use of the information to criminally investigate or prosecute any alcohol or drug abuse patient.[facility] CenterIn the event this information is protected by the Federal Confidentiality of Alcohol and Drug Abuse Patient Records regulations: The Federal rules restrict any use of the information to criminally investigate or prosecute any alcohol or drug abuse patient.[facility] CenterIn the event this information is protected by the Federal Confidentiality of Alcohol and Drug Abuse Patient Records regulations: The Federal rules restrict any use of the information to criminally investigate or prosecute any alcohol or drug abuse patient.[facility] CenterIn the event this information is protected by the Federal Confidentiality of Alcohol and Drug Abuse Patient Records regulations: The Federal rules restrict any use of the information to criminally investigate or prosecute any alcohol or drug abuse patient.[facility] CenterIn the event this information is protected by the Federal Confidentiality of Alcohol and Drug Abuse Patient Records regulations: The Federal rules restrict any use of the information to criminally investigate or prosecute any alcohol or drug abuse patient.[facility] CenterIn the event this information is protected by the Federal Confidentiality of Alcohol and Drug Abuse Patient Records regulations: The Federal rules restrict any use of the information to criminally investigate or prosecute any alcohol or drug abuse patient.[facility] CenterIn the event this information is protected by the Federal Confidentiality of Alcohol and Drug Abuse Patient Records regulations: The Federal rules restrict any use of the information to criminally investigate or prosecute any alcohol or drug abuse patient.[facility] CenterIn the event this information is protected by the Federal Confidentiality of Alcohol and Drug Abuse Patient Records regulations: The Federal rules restrict any use of the information to criminally investigate or prosecute any alcohol or drug abuse patient.[facility] CenterIn the event this information is protected by the Federal Confidentiality of Alcohol and Drug Abuse Patient Records regulations: The Federal rules restrict any use of the information to criminally investigate or prosecute any alcohol or drug abuse patient.[facility] CenterIn the event this information is protected by the Federal Confidentiality of Alcohol and Drug Abuse Patient Records regulations: The Federal rules restrict any use of the information to criminally investigate or prosecute any alcohol or drug abuse patient.[facility] CenterIn the event this information is protected by the Federal Confidentiality of Alcohol and Drug Abuse Patient Records regulations: The Federal rules restrict any use of the information to criminally investigate or prosecute any alcohol or drug abuse patient.[facility] CenterIn the event this information is protected by the Federal Confidentiality of Alcohol and Drug Abuse Patient Records regulations: The Federal rules restrict any use of the information to criminally investigate or prosecute any alcohol or drug abuse patient.[facility] CenterIn the event this information is protected by the Federal Confidentiality of Alcohol and Drug Abuse Patient Records regulations: The Federal rules restrict any use of the information to criminally investigate or prosecute any alcohol or drug abuse patient.[facility] CenterIn the event this information is protected by the Federal Confidentiality of Alcohol and Drug Abuse Patient Records regulations: The Federal rules restrict any use of the information to criminally investigate or prosecute any alcohol or drug abuse patient.[facility] CenterIn the event this information is protected by the Federal Confidentiality of Alcohol and Drug Abuse Patient Records regulations: The Federal rules restrict any use of the information to criminally investigate or prosecute any alcohol or drug abuse patient.[facility] CenterIn the event this information is protected by the Federal Confidentiality of Alcohol and Drug Abuse Patient Records regulations: The Federal rules restrict any use of the information to criminally investigate or prosecute any alcohol or drug abuse patient.[facility] CenterIn the event this information is protected by the Federal Confidentiality of Alcohol and Drug Abuse Patient Records regulations: The Federal rules restrict any use of the information to criminally investigate or prosecute any alcohol or drug abuse patient.[facility] CenterIn the event this information is protected by the Federal Confidentiality of Alcohol and Drug Abuse Patient Records regulations: The Federal rules restrict any use of the information to criminally investigate or prosecute any alcohol or drug abuse patient.[facility] CenterIn the event this information is protected by the Federal Confidentiality of Alcohol and Drug Abuse Patient Records regulations: The Federal rules restrict any use of the information to criminally investigate or prosecute any alcohol or drug abuse patient.[facility] CenterIn the event this information is protected by the Federal Confidentiality of Alcohol and Drug Abuse Patient Records regulations: The Federal rules restrict any use of the information to criminally investigate or prosecute any alcohol or drug abuse patient.[facility] CenterIn the event this information is protected by the Federal Confidentiality of Alcohol and Drug Abuse Patient Records regulations: The Federal rules restrict any use of the information to criminally investigate or prosecute any alcohol or drug abuse patient.[facility] CenterIn the event this information is protected by the Federal Confidentiality of Alcohol and Drug Abuse Patient Records regulations: The Federal rules restrict any use of the information to criminally investigate or prosecute any alcohol or drug abuse patient.[facility] CenterIn the event this information is protected by the Federal Confidentiality of Alcohol and Drug Abuse Patient Records regulations: The Federal rules restrict any use of the information to criminally investigate or prosecute any alcohol or drug abuse patient.[facility] CenterIn the event this information is protected by the Federal Confidentiality of Alcohol and Drug Abuse Patient Records regulations: The Federal rules restrict any use of the information to criminally investigate or prosecute any alcohol or drug abuse patient.[facility] CenterIn the event this information is protected by the Federal Confidentiality of Alcohol and Drug Abuse Patient Records regulations: The Federal rules restrict any use of the information to criminally investigate or prosecute any alcohol or drug abuse patient.[facility] CenterIn the event this information is protected by the Federal Confidentiality of Alcohol and Drug Abuse Patient Records regulations: The Federal rules restrict any use of the information to criminally investigate or prosecute any alcohol or drug abuse patient.[facility] CenterIn the event this information is protected by the Federal Confidentiality of Alcohol and Drug Abuse Patient Records regulations: The Federal rules restrict any use of the information to criminally investigate or prosecute any alcohol or drug abuse patient.[facility] CenterIn the event this information is protected by the Federal Confidentiality of Alcohol and Drug Abuse Patient Records regulations: The Federal rules restrict any use of the information to criminally investigate or prosecute any alcohol or drug abuse patient.[facility] CenterIn the event this information is protected by the Federal Confidentiality of Alcohol and Drug Abuse Patient Records regulations: The Federal rules restrict any use of the information to criminally investigate or prosecute any alcohol or drug abuse patient.[facility] CenterIn the event this information is protected by the Federal Confidentiality of Alcohol and Drug Abuse Patient Records regulations: The Federal rules restrict any use of the information to criminally investigate or prosecute any alcohol or drug abuse patient.[facility] CenterIn the event this information is protected by the Federal Confidentiality of Alcohol and Drug Abuse Patient Records regulations: The Federal rules restrict any use of the information to criminally investigate or prosecute any alcohol or drug abuse patient.[facility] CenterIn the event this information is protected by the Federal Confidentiality of Alcohol and Drug Abuse Patient Records regulations: The Federal rules restrict any use of the information to criminally investigate or prosecute any alcohol or drug abuse patient.[facility] CenterIn the event this information is protected by the Federal Confidentiality of Alcohol and Drug Abuse Patient Records regulations: The Federal rules restrict any use of the information to criminally investigate or prosecute any alcohol or drug abuse patient.[facility] CenterIn the event this information is protected by the Federal Confidentiality of Alcohol and Drug Abuse Patient Records regulations: The Federal rules restrict any use of the information to criminally investigate or prosecute any alcohol or drug abuse patient.[facility] CenterIn the event this information is protected by the Federal Confidentiality of Alcohol and Drug Abuse Patient Records regulations: The Federal rules restrict any use of the information to criminally investigate or prosecute any alcohol or drug abuse patient.[facility] CenterIn the event this information is protected by the Federal Confidentiality of Alcohol and Drug Abuse Patient Records regulations: The Federal rules restrict any use of the information to criminally investigate or prosecute any alcohol or drug abuse patient.[facility] CenterIn the event this information is protected by the Federal Confidentiality of Alcohol and Drug Abuse Patient Records regulations: The Federal rules restrict any use of the information to criminally investigate or prosecute any alcohol or drug abuse patient.[facility] CenterIn the event this information is protected by the Federal Confidentiality of Alcohol and Drug Abuse Patient Records regulations: The Federal rules restrict any use of the information to criminally investigate or prosecute any alcohol or drug abuse patient.[facility] CenterIn the event this information is protected by the Federal Confidentiality of Alcohol and Drug Abuse Patient Records regulations: The Federal rules restrict any use of the information to criminally investigate or prosecute any alcohol or drug abuse patient.[facility] CenterIn the event this information is protected by the Federal Confidentiality of Alcohol and Drug Abuse Patient Records regulations: The Federal rules restrict any use of the information to criminally investigate or prosecute any alcohol or drug abuse patient.[facility] CenterIn the event this information is protected by the Federal Confidentiality of Alcohol and Drug Abuse Patient Records regulations: The Federal rules restrict any use of the information to criminally investigate or prosecute any alcohol or drug abuse patient.[facility] CenterIn the event this information is protected by the Federal Confidentiality of Alcohol and Drug Abuse Patient Records regulations: The Federal rules restrict any use of the information to criminally investigate or prosecute any alcohol or drug abuse patient.[facility] CenterIn the event this information is protected by the Federal Confidentiality of Alcohol and Drug Abuse Patient Records regulations: The Federal rules restrict any use of the information to criminally investigate or prosecute any alcohol or drug abuse patient.[facility] CenterIn the event this information is protected by the Federal Confidentiality of Alcohol and Drug Abuse Patient Records regulations: The Federal rules restrict any use of the information to criminally investigate or prosecute any alcohol or drug abuse patient.[facility] CenterIn the event this information is protected by the Federal Confidentiality of Alcohol and Drug Abuse Patient Records regulations: The Federal rules restrict any use of the information to criminally investigate or prosecute any alcohol or drug abuse patient.[facility] CenterIn the event this information is protected by the Federal Confidentiality of Alcohol and Drug Abuse Patient Records regulations: The Federal rules restrict any use of the information to criminally investigate or prosecute any alcohol or drug abuse patient.[facility] CenterIn the event this information is protected by the Federal Confidentiality of Alcohol and Drug Abuse Patient Records regulations: The Federal rules restrict any use of the information to criminally investigate or prosecute any alcohol or drug abuse patient.[facility] CenterIn the event this information is protected by the Federal Confidentiality of Alcohol and Drug Abuse Patient Records regulations: The Federal rules restrict any use of the information to criminally investigate or prosecute any alcohol or drug abuse patient.[facility] CenterIn the event this information is protected by the Federal Confidentiality of Alcohol and Drug Abuse Patient Records regulations: The Federal rules restrict any use of the information to criminally investigate or prosecute any alcohol or drug abuse patient.[facility] CenterIn the event this information is protected by the Federal Confidentiality of Alcohol and Drug Abuse Patient Records regulations: The Federal rules restrict any use of the information to criminally investigate or prosecute any alcohol or drug abuse patient.[facility] CenterIn the event this information is protected by the Federal Confidentiality of Alcohol and Drug Abuse Patient Records regulations: The Federal rules restrict any use of the information to criminally investigate or prosecute any alcohol or drug abuse patient.[facility] CenterIn the event this information is protected by the Federal Confidentiality of Alcohol and Drug Abuse Patient Records regulations: The Federal rules restrict any use of the information to criminally investigate or prosecute any alcohol or drug abuse patient.[facility] CenterIn the event this information is protected by the Federal Confidentiality of Alcohol and Drug Abuse Patient Records regulations: The Federal rules restrict any use of the information to criminally investigate or prosecute any alcohol or drug abuse patient.[facility] CenterIn the event this information is protected by the Federal Confidentiality of Alcohol and Drug Abuse Patient Records regulations: The Federal rules restrict any use of the information to criminally investigate or prosecute any alcohol or drug abuse patient.[facility] CenterIn the event this information is protected by the Federal Confidentiality of Alcohol and Drug Abuse Patient Records regulations: The Federal rules restrict any use of the information to criminally investigate or prosecute any alcohol or drug abuse patient.[facility] CenterIn the event this information is protected by the Federal Confidentiality of Alcohol and Drug Abuse Patient Records regulations: The Federal rules restrict any use of the information to criminally investigate or prosecute any alcohol or drug abuse patient.[facility] CenterIn the event this information is protected by the Federal Confidentiality of Alcohol and Drug Abuse Patient Records regulations: The Federal rules restrict any use of the information to criminally investigate or prosecute any alcohol or drug abuse patient.[facility] CenterIn the event this information is protected by the Federal Confidentiality of Alcohol and Drug Abuse Patient Records regulations: The Federal rules restrict any use of the information to criminally investigate or prosecute any alcohol or drug abuse patient.[facility] CenterIn the event this information is protected by the Federal Confidentiality of Alcohol and Drug Abuse Patient Records regulations: The Federal rules restrict any use of the information to criminally investigate or prosecute any alcohol or drug abuse patient.[facility] CenterIn the event this information is protected by the Federal Confidentiality of Alcohol and Drug Abuse Patient Records regulations: The Federal rules restrict any use of the information to criminally investigate or prosecute any alcohol or drug abuse patient.[facility] CenterIn the event this information is protected by the Federal Confidentiality of Alcohol and Drug Abuse Patient Records regulations: The Federal rules restrict any use of the information to criminally investigate or prosecute any alcohol or drug abuse patient.[facility] CenterIn the event this information is protected by the Federal Confidentiality of Alcohol and Drug Abuse Patient Records regulations: The Federal rules restrict any use of the information to criminally investigate or prosecute any alcohol or drug abuse patient.[facility] CenterIn the event this information is protected by the Federal Confidentiality of Alcohol and Drug Abuse Patient Records regulations: The Federal rules restrict any use of the information to criminally investigate or prosecute any alcohol or drug abuse patient.[facility] CenterIn the event this information is protected by the Federal Confidentiality of Alcohol and Drug Abuse Patient Records regulations: The Federal rules restrict any use of the information to criminally investigate or prosecute any alcohol or drug abuse patient.[facility] CenterIn the event this information is protected by the Federal Confidentiality of Alcohol and Drug Abuse Patient Records regulations: The Federal rules restrict any use of the information to criminally investigate or prosecute any alcohol or drug abuse patient.[facility] CenterIn the event this information is protected by the Federal Confidentiality of Alcohol and Drug Abuse Patient Records regulations: The Federal rules restrict any use of the information to criminally investigate or prosecute any alcohol or drug abuse patient.[facility] CenterIn the event this information is protected by the Federal Confidentiality of Alcohol and Drug Abuse Patient Records regulations: The Federal rules restrict any use of the information to criminally investigate or prosecute any alcohol or drug abuse patient.[facility] CenterIn the event this information is protected by the Federal Confidentiality of Alcohol and Drug Abuse Patient Records regulations: The Federal rules restrict any use of the information to criminally investigate or prosecute any alcohol or drug abuse patient.[facility] CenterIn the event this information is protected by the Federal Confidentiality of Alcohol and Drug Abuse Patient Records regulations: The Federal rules restrict any use of the information to criminally investigate or prosecute any alcohol or drug abuse patient.[facility] CenterIn the event this information is protected by the Federal Confidentiality of Alcohol and Drug Abuse Patient Records regulations: The Federal rules restrict any use of the information to criminally investigate or prosecute any alcohol or drug abuse patient.[facility] CenterIn the event this information is protected by the Federal Confidentiality of Alcohol and Drug Abuse Patient Records regulations: The Federal rules restrict any use of the information to criminally investigate or prosecute any alcohol or drug abuse patient.[facility] CenterIn the event this information is protected by the Federal Confidentiality of Alcohol and Drug Abuse Patient Records regulations: The Federal rules restrict any use of the information to criminally investigate or prosecute any alcohol or drug abuse patient.[facility] CenterIn the event this information is protected by the Federal Confidentiality of Alcohol and Drug Abuse Patient Records regulations: The Federal rules restrict any use of the information to criminally investigate or prosecute any alcohol or drug abuse patient.[facility] CenterIn the event this information is protected by the Federal Confidentiality of Alcohol and Drug Abuse Patient Records regulations: The Federal rules restrict any use of the information to criminally investigate or prosecute any alcohol or drug abuse patient.[facility] CenterIn the event this information is protected by the Federal Confidentiality of Alcohol and Drug Abuse Patient Records regulations: The Federal rules restrict any use of the information to criminally investigate or prosecute any alcohol or drug abuse patient.[facility] CenterIn the event this information is protected by the Federal Confidentiality of Alcohol and Drug Abuse Patient Records regulations: The Federal rules restrict any use of the information to criminally investigate or prosecute any alcohol or drug abuse patient.[facility] CenterIn the event this information is protected by the Federal Confidentiality of Alcohol and Drug Abuse Patient Records regulations: The Federal rules restrict any use of the information to criminally investigate or prosecute any alcohol or drug abuse patient.[facility] CenterIn the event this information is protected by the Federal Confidentiality of Alcohol and Drug Abuse Patient Records regulations: The Federal rules restrict any use of the information to criminally investigate or prosecute any alcohol or drug abuse patient.[facility] CenterIn the event this information is protected by the Federal Confidentiality of Alcohol and Drug Abuse Patient Records regulations: The Federal rules restrict any use of the information to criminally investigate or prosecute any alcohol or drug abuse patient.[facility]In the event this information is protected by the Federal Confidentiality of Alcohol and Drug Abuse Patient Records regulations: The Federal rules restrict any use of the information to criminally investigate or prosecute any alcohol or drug abuse patient.[facility] CenterIn the event this information is protected by the Federal Confidentiality of Alcohol and Drug Abuse Patient Records regulations: The Federal rules restrict any use of the information to criminally investigate or prosecute any alcohol or drug abuse patient.[facility] CenterIn the event this information is protected by the Federal Confidentiality of Alcohol and Drug Abuse Patient Records regulations: The Federal rules restrict any use of the information to criminally investigate or prosecute any alcohol or drug abuse patient.[facility] CenterIn the event this information is protected by the Federal Confidentiality of Alcohol and Drug Abuse Patient Records regulations: The Federal rules restrict any use of the information to criminally investigate or prosecute any alcohol or drug abuse patient.[facility] CenterIn the event this information is protected by the Federal Confidentiality of Alcohol and Drug Abuse Patient Records regulations: The Federal rules restrict any use of the information to criminally investigate or prosecute any alcohol or drug abuse patient.[facility] CenterIn the event this information is protected by the Federal Confidentiality of Alcohol and Drug Abuse Patient Records regulations: The Federal rules restrict any use of the information to criminally investigate or prosecute any alcohol or drug abuse patient.[facility] CenterIn the event this information is protected by the Federal Confidentiality of Alcohol and Drug Abuse Patient Records regulations: The Federal rules restrict any use of the information to criminally investigate or prosecute any alcohol or drug abuse patient.[facility]In the event this information is protected by the Federal Confidentiality of Alcohol and Drug Abuse Patient Records regulations: The Federal rules restrict any use of the information to criminally investigate or prosecute any alcohol or drug abuse patient.[facility] CenterIn the event this information is protected by the Federal Confidentiality of Alcohol and Drug Abuse Patient Records regulations: The Federal rules restrict any use of the information to criminally investigate or prosecute any alcohol or drug abuse patient.[facility] CenterIn the event this information is protected by the Federal Confidentiality of Alcohol and Drug Abuse Patient Records regulations: The Federal rules restrict any use of the information to criminally investigate or prosecute any alcohol or drug abuse patient.[facility] CenterIn the event this information is protected by the Federal Confidentiality of Alcohol and Drug Abuse Patient Records regulations: The Federal rules restrict any use of the information to criminally investigate or prosecute any alcohol or drug abuse patient.[facility] CenterIn the event this information is protected by the Federal Confidentiality of Alcohol and Drug Abuse Patient Records regulations: The Federal rules restrict any use of the information to criminally investigate or prosecute any alcohol or drug abuse patient.[facility] CenterIn the event this information is protected by the Federal Confidentiality of Alcohol and Drug Abuse Patient Records regulations: The Federal rules restrict any use of the information to criminally investigate or prosecute any alcohol or drug abuse patient.[facility] CenterIn the event this information is protected by the Federal Confidentiality of Alcohol and Drug Abuse Patient Records regulations: The Federal rules restrict any use of the information to criminally investigate or prosecute any alcohol or drug abuse patient.[facility] [facility] CenterIn the event this information is protected by the Federal Confidentiality of Alcohol and Drug Abuse Patient Records regulations: The Federal rules restrict any use of the information to criminally investigate or prosecute any alcohol or drug abuse patient.[facility] CenterIn the event this information is protected by the Federal Confidentiality of Alcohol and Drug Abuse Patient Records regulations: The Federal rules restrict any use of the information to criminally investigate or prosecute any alcohol or drug abuse patient.[facility] CenterIn the event this information is protected by the Federal Confidentiality of Alcohol and Drug Abuse Patient Records regulations: The Federal rules restrict any use of the information to criminally investigate or prosecute any alcohol or drug abuse patient.[facility] CenterIn the event this information is protected by the Federal Confidentiality of Alcohol and Drug Abuse Patient Records regulations: The Federal rules restrict any use of the information to criminally investigate or prosecute any alcohol or drug abuse patient.[facility] CenterIn the event this information is protected by the Federal Confidentiality of Alcohol and Drug Abuse Patient Records regulations: The Federal rules restrict any use of the information to criminally investigate or prosecute any alcohol or drug abuse patient.[facility] CenterIn the event this information is protected by the Federal Confidentiality of Alcohol and Drug Abuse Patient Records regulations: The Federal rules restrict any use of the information to criminally investigate or prosecute any alcohol or drug abuse patient.[facility] CenterIn the event this information is protected by the Federal Confidentiality of Alcohol and Drug Abuse Patient Records regulations: The Federal rules restrict any use of the information to criminally investigate or prosecute any alcohol or drug abuse patient.[facility] CenterIn the event this information is protected by the Federal Confidentiality of Alcohol and Drug Abuse Patient Records regulations: The Federal rules restrict any use of the information to criminally investigate or prosecute any alcohol or drug abuse patient.[facility] CenterIn the event this information is protected by the Federal Confidentiality of Alcohol and Drug Abuse Patient Records regulations: The Federal rules restrict any use of the information to criminally investigate or prosecute any alcohol or drug abuse patient.[facility] CenterIn the event this information is protected by the Federal Confidentiality of Alcohol and Drug Abuse Patient Records regulations: The Federal rules restrict any use of the information to criminally investigate or prosecute any alcohol or drug abuse patient.[facility] CenterIn the event this information is protected by the Federal Confidentiality of Alcohol and Drug Abuse Patient Records regulations: The Federal rules restrict any use of the information to criminally investigate or prosecute any alcohol or drug abuse patient.[facility] CenterIn the event this information is protected by the Federal Confidentiality of Alcohol and Drug Abuse Patient Records regulations: The Federal rules restrict any use of the information to criminally investigate or prosecute any alcohol or drug abuse patient.[facility] CenterIn the event this information is protected by the Federal Confidentiality of Alcohol and Drug Abuse Patient Records regulations: The Federal rules restrict any use of the information to criminally investigate or prosecute any alcohol or drug abuse patient.[facility] CenterIn the event this information is protected by the Federal Confidentiality of Alcohol and Drug Abuse Patient Records regulations: The Federal rules restrict any use of the information to criminally investigate or prosecute any alcohol or drug abuse patient.[facility] CenterIn the event this information is protected by the Federal Confidentiality of Alcohol and Drug Abuse Patient Records regulations: The Federal rules restrict any use of the information to criminally investigate or prosecute any alcohol or drug abuse patient.[facility] CenterIn the event this information is protected by the Federal Confidentiality of Alcohol and Drug Abuse Patient Records regulations: The Federal rules restrict any use of the information to criminally investigate or prosecute any alcohol or drug abuse patient.[facility] CenterIn the event this information is protected by the Federal Confidentiality of Alcohol and Drug Abuse Patient Records regulations: The Federal rules restrict any use of the information to criminally investigate or prosecute any alcohol or drug abuse patient.[facility] CenterIn the event this information is protected by the Federal Confidentiality of Alcohol and Drug Abuse Patient Records regulations: The Federal rules restrict any use of the information to criminally investigate or prosecute any alcohol or drug abuse patient.[facility] Reason for Visit (unrecogniz ed section and content) Reason Comments Follow Up Specialty Diagnoses / Procedures Referred By Petra meek Referred To Contact Family Medicine / FAMILY MEDICINE Diagnoses Follow up. Procedures 4C EST Ivette Grimes MD [address] [place] [address] Ivette Grimes MD [address] [place] [address] Referral ID Status Reason Start Date Expiration Date V isits Requested Visits Authorized [id number] Pending Review 01/31/2023 05/01/2023 1 1 Reason Comments New Patient Specialty Diagnoses / Procedures Referred By Petra meek Referred To Contact Pain Management Diagnoses Chronic left shoulder pain Procedures CONSULT TO PAIN MGT OFFICE/OUTPATIENT NEW HIGH MDM 60-74 MINUTES Ivette Grimes MD [address] [place] [address] Referral ID Status Reason Start Date Expiration Date V isits Requested Visits Authorized [id number] Closed PCP Requested Referral 01/22/2022 01/22/2023 1 [...] status migrainosus Procedures CONSULT TO NEUROLOGY OFFICE/OUTPATIENT [facility] MDM 60-[place] [address] [place] [address] Referral ID Status Reason Start Date Expiration Date V isits Requested Visits Authorized [id number] Closed PCP Requested Referral 12/25/2021 12/25/2022 1 1 Reason Onset Date Comments Refill Request 04/16/2022 Reason Comments Follow Up shoulder pain, switc h medication back to gabapentin Specialty Diagnoses / Procedures Referred By Contac t Referred To Contact Family Practice / FAMILY MEDICINE Diagnoses Follow-up exam follow up Procedures OFFICE/OUTPATIENT [facility] MDM 40-54 MIN [facility] OFFICE VISIT Ivette Grimes MD [address] [place] [address] [place] [address] [place] [address] Referral ID Status Reason Start Date Expiration Date Visits Re quested Visits Authorized [id number] Closed 04/17/2022 11/03/2022 1 1 Reason Onset [...] IMG S&I PROCEDURE 20 Elle Sanchez MD [address] [facility] [address] [place] [address] Elle Sanchez MD [address] [place] [address] Referral ID Status Reason Start Date Expiration Date Visits Re quested Visits Authorized [id number] Closed 05/10/2022 06/10/2022 1 1 Reason Comments Procedure Follow Up Reason Comments Follow Up Specialty Diagnoses / Procedures Referred By Contac t Referred To Contact Pain Management / PAIN MANAGEMENT Diagnoses OV & follow up inj Procedures OFFICE/OUTPATIENT ESTABLISHED [facility] 30-39 MIN EST PATIENT Elle Sanchez MD [address] [address] Adelina Mason, IRON MINER BLASTING.EBD TEACHER [address] [place] [address] Referral ID Status Reason Start Date Expiration Date Visits Re quested Visits Authorized [id number] Closed 11/04/2021 11/03/2022 1 1 Reason Comments Appointment Reason Comments Headache follow up Specialty Diagnoses / Procedures Referred By Contac t Referred To Contact Neurology Diagnoses Migraine with aura, not intractable, without status migrainosus Procedures CONSULT TO NEUROLOGY OFFICE/OUTPATIENT [facility] [place] 60-74 MINUTES Ivette Grimes MD [address] [place] [address] Reason Comments Orders Reason Onset Date Comments [...] OF [place] 60-74 MINUTES Tara Gillette, THOM.EBD TEACHER [address] [place] [address] Referral ID Status Reason Start Date Expiration Date V isits Requested Visits Authorized [id number] Closed PCP Requested Referral 06/07/2022 06/07/2023 1 [...] MYC OFFICE VISIT Ivette Grimes MD [address] [place] [address] [place] [address] [place] [address] Referral ID Status Reason Start Date Expiration Date V isits Requested Visits Authorized [id number] Authorized 04/17/2022 11/03/2022 99 99 Reason Comments Patient Update Reason Comments Follow Up Acute Visit Reason Comments Fatigue Specialty Diagnoses / Procedures Referred By Petra meek Referred To Contact Family Medicine / FAMILY MEDICINE Diagnoses dizzy-follow up from virtual with Dr Bianchi 09/03 Procedures 4C EST Ivette Grimes MD [address] [place] [address] [place] [address] [place] [address] Referral ID Status Reason Start Date Expiration Date Visits Re quested Visits Authorized [id number] Closed 09/04/2022 12/03/2022 1 1 Reason Onset [...] MINUTES VIDEO PSYC/PSYL NEW Self Grace Coronel, IRON MINER BLASTING.EBD TEACHER [address] [place] [address] Referral ID Status Reason Start Date Expiration Date Visits Re quested Visits Authorized [id number] Closed 11/04/2021 11/03/2022 1 1 Reason Comments Follow Up Pain (Shoulder Pain) Left Specialty Diagnoses / Procedures Referred By Petra meek Referred To Contact Pain Management / PAIN MANAGEMENT Diagnoses Examination wants to discuss options since Insurance denied RFA Procedures OFFICE/OUTPATIENT ESTABLISHED MOD MDM 30-39 MIN EST PATIENT Self Adelina Mason, IRON MINER BLASTING.EBD TEACHER [address] [place] [address] Referral ID Status Reason Start Date Expiration Date V isits Requested Visits Authorized [id number] Closed Patient Cleared - Admin/Chairm an/Director advise to proceed 11/08/2022 02/06/2023 1 1 Reason Onset Date Comments Refill Request 11/15/2022 Reason Onset Date Comments Refill Request 11/23/2022 Reason Comments ER F/U Reason Comments Patient Question [place] appointment on 12/05/22 Reason Comments Acute Visit [...] referral botox 200 units every 90 days [id number] Karen Bansal, IRON MINER BLASTING.EBD TEACHER [address] [place] [address] Neur Adult Main [address] [place] [address] Referral ID Status Reason Start Date Expiration Date V isits Requested Visits Authorized [id number] Authorized 08/15/2022 01/30/2023 2 2 Reason Comments [...] Referred By Contac t Referred To Contact DINING ROOM HELPER Diagnoses annual Procedures EST I ANNUAL PATIENT Self Galina Camacho MD [address] [place] [address] Referral ID Status Reason Start Date Expiration Date V isits Requested Visits Authorized [id number] Closed Patient Cleared - INN Insurance Found [...] due on 04/22/23 Fatuma Beckford PA-C [address] [facility] [place] [address] Neur Adult Main [address] [place] [address] Referral ID Status Reason Start Date Expiration Date V isits Requested Visits Authorized [id number] Authorized 04/02/2023 04/02/2024 4 4 Reason Comments [...] Patient due on 04/22/23 Fatuma Beckford PA-C [address] [place] [address] [place] [address] [facility] [address] [place] [address] Referral ID Status Reason Start Date Expiration Date Visits Re quested Visits Authorized [id number] Closed 04/02/2023 04/02/2024 4 4 Reason Comments [...] [facility] [place] [address] Lindsey [place] [address] [facility] [place] [address] Referral ID Status Reason Start Date Expiration Date V isits Requested Visits Authorized [id number] Authorized 07/01/2024 11/03/2024 99 99 Reason Onset [...] Care Teams (unrecognized sec tion and content) Court Monitor Relationship Specialty Start Date End Date Ivette Grimes MD [address] [place] [address] PCP - General Family Practice 11/21/13 [facility] [address] [place] [address] Pharmacist Pharmacy 05/19/20 Court Monitor Relationship Specialty Start Date End Date Ivette Grimes MD [address] [place] [address] PCP - General Family Practice 11/21/13 [facility] [address] [facility] [place] [address] Pharmacist Pharmacy 05/19/20 Court Monitor Relationship Specialty Start Date End Date Ivette Grimes MD [address] [facility] [place] [address] PCP - General Family Practice 11/21/13 [facility] [address] [facility] [place] [address] Pharmacist Pharmacy 05/19/20 Court Monitor Relationship Specialty Start Date End Date Ivette Grimes MD [address] [place] [address] PCP - General Family Practice 11/21/13 [facility] [address] [place] [address] Pharmacist Pharmacy 05/19/20 Court Monitor Relationship Specialty Start Date End Date Ivette Grimes MD [address] [facility] [place] [address] PCP - General Family Practice 11/21/13 Jagdish Carballo, [facility] [address] [facility] [place] [address] Pharmacist Pharmacy 05/19/20 Court Monitor Relationship Specialty Start Date End Date Ivette Grimes MD [address] [facility] [place] [address] PCP - General Family Practice 11/21/13 [facility] [address] [facility] [place] [address] Pharmacist Pharmacy 05/19/20 Court Monitor Relationship Specialty Start Date End Date Ivette Grimes MD [address] [facility] [place] [address] PCP - General Family Practice 11/21/13 MartinhenryJagdish, [facility] [address] [facility] [place] [address] Pharmacist Pharmacy 05/19/20 Court Monitor Relationship Specialty Start Date End Date Ivette Grimes MD [address] [facility] [place] [address] PCP - General Family Practice 11/21/13 Jagdish Carballo, [facility] [address] [place] [address] Pharmacist Pharmacy 05/19/20 Court Monitor Relationship Specialty Start Date End Date Ivette Grimes MD [address] [facility] [place] [address] PCP - General Family Practice 11/21/13 [facility] [address] [facility] [place] [address] Pharmacist Pharmacy 05/19/20 Court Monitor Relationship Specialty Start Date End Date Ivette Grimes MD [address] [place] [address] PCP - General Family Practice 11/21/13 [facility] [address] [facility] [place] [address] Pharmacist Pharmacy 05/19/20 Court Monitor Relationship Specialty Start Date End Date Ivette Grimes MD [address] [place] [address] PCP - General Family Practice 11/21/13 [facility] [address] [facility] [place] [address] Pharmacist Pharmacy 05/19/20 Court Monitor Relationship Specialty Start Date End Date Ivette Grimes MD [address] [place] [address] PCP - General Family Practice 11/21/13 [facility] [address] [facility] [place] [address] Pharmacist Pharmacy 05/19/20 [address] Monitor Relationship Specialty Start Date End Date Ivette Grimes MD [address] [place] [address] PCP - General Family Practice 11/21/13 Jagdish Carballo, [facility] [address] [facility] [place] [address] Pharmacist Pharmacy 05/19/20 Court Monitor Relationship Specialty Start Date End Date Ivette Grimes MD [address] [place] [address] PCP - General Family Practice 11/21/13 Jagdish Carballo, [facility] [address] [facility] [place] [address] Pharmacist Pharmacy 05/19/20 Court Monitor Relationship Specialty Start Date End Date Ivette Grimes MD [address] [place] [address] PCP - General Family Practice 11/21/13 Jagdish Carballo, [facility] [address] [facility] [place] [address] Pharmacist Pharmacy 05/19/20 [address] Monitor Relationship Specialty Start Date End Date Ivette Grimes MD [address] [facility] [place] [address] PCP - General Family Practice 11/21/13 Jagdish Carballo, [facility] [address] [facility] [place] [address] Pharmacist Pharmacy 05/19/20 Court Monitor Relationship Specialty Start Date End Date Ivette Grimes MD [address] [facility] [place] [address] PCP - General Family Practice 11/21/13 Jagdish Carballo, [facility] [address] [place] [address] Pharmacist Pharmacy 05/19/20 Court Monitor Relationship Specialty Start Date End Date Ivette Grimes MD [address] [place] [address] PCP - General Family Practice 11/21/13 Jagdish Carballo, [facility] [address] [place] [address] Pharmacist Pharmacy 05/19/20 Court Monitor Relationship Specialty Start Date End Date Ivette Grimes MD [address] [facility] [place] [address] PCP - General Family Practice 11/21/13 [facility] [address] [facility] [place] [address] Pharmacist Pharmacy 05/19/20 Court Monitor Relationship Specialty Start Date End Date Ivette Grimes MD [address] [facility] [place] [address] PCP - General Family Medicine 11/21/13 [facility] [address] [facility] [place] [address] Pharmacist Pharmacy 05/19/20 Court Monitor Relationship Specialty Start Date End Date Ivette Grimes MD [address] [facility] [place] [address] PCP - General Family Medicine 11/21/13 [facility] [address] [facility] [place] [address] Pharmacist Pharmacy 05/19/20 Court Monitor Relationship Specialty Start Date End Date Ivette Grimes MD [address] [facility] [place] [address] PCP - General Family Medicine 11/21/13 [facility] [address] [facility] [place] [address] Pharmacist Pharmacy 05/19/20 Court Monitor Relationship Specialty Start Date End Date Ivette Grimes MD [address] [facility] [place] [address] PCP - General Family Medicine 11/21/13 Jagdish Carballo, [facility] [address] [facility] [place] [address] Pharmacist Pharmacy 05/19/20 [address] Monitor Relationship Specialty Start Date End Date Ivette Grimes MD [address] [facility] [place] [address] PCP - General Family Medicine 11/21/13 Jagdish Carballo, [facility] [address] [place] [address] Pharmacist Pharmacy 05/19/20 Court Monitor Relationship Specialty Start Date End Date Ivette Grimes MD [address] [facility] [place] [address] PCP - General Family Medicine 11/21/13 Jagdish Carballo, [facility] [address] [facility] [place] [address] Pharmacist Pharmacy 05/19/20 Court Monitor Relationship Specialty Start Date End Date Ivette Grimes MD [address] [facility] [place] [address] PCP - General Family Medicine 11/21/13 Jagdish Carballo, [facility] [address] [facility] [place] [address] Pharmacist Pharmacy 05/19/20 Court Monitor Relationship Specialty Start Date End Date Ivette Grimes MD [address] [facility] [place] [address] PCP - General Family Medicine 11/21/13 Jagdish Carballo, [facility] [address] [place] [address] Pharmacist Pharmacy 05/19/20 Court Monitor Relationship Specialty Start Date End Date Ivette Grimes MD [address] [facility] [place] [address] PCP - General Family Medicine 11/21/13 Jagdish Carballo, [facility] [address] [facility] [place] [address] Pharmacist Pharmacy 05/19/20 Court Monitor Relationship Specialty Start Date End Date Ivette Grimes MD [address] [facility] [place] [address] PCP - General Family Medicine 11/21/13 Jagdish Carballo, [facility] [address] [place] [address] Pharmacist Pharmacy 05/19/20 Court Monitor Relationship Specialty Start Date End Date Ivette Grimes MD [address] [facility] [place] [address] PCP - General Family Medicine 11/21/13 Jagdish Carballo, [facility] [address] [place] [address] Pharmacist Pharmacy 05/19/20 Court Monitor Relationship Specialty Start Date End Date Ivette Grimes MD [address] [facility] [place] [address] PCP - General Family Medicine 11/21/13 Jagdish Carballo, [facility] [address] [facility] [place] [address] Pharmacist Pharmacy 05/19/20 Court Monitor Relationship Specialty Start Date End Date Ivette Grimes MD [address] [facility] [place] [address] PCP - General Family Medicine 11/21/13 Jagdish Carballo, [facility] [address] [place] [address] Pharmacist Pharmacy 05/19/20 Court Monitor Relationship Specialty Start Date End Date Ivette Grimes MD [address] [facility] [place] [address] PCP - General Family Medicine 11/21/13 Jagdish Carballo, [facility] [address] [place] [address] Pharmacist Pharmacy 05/19/20 Court Monitor Relationship Specialty Start Date End Date Ivette Grimes MD [address] [facility] [place] [address] PCP - General Family Medicine 11/21/13 [facility] [address] [facility] [place] [address] Pharmacist Pharmacy 05/19/20 Court Monitor Relationship Specialty Start Date End Date Ivette Grimes MD [address] [facility] [place] [address] PCP - General Family Medicine 11/21/13 [facility] [address] [facility] [place] [address] Pharmacist Pharmacy 05/19/20 Court Monitor Relationship Specialty Start Date End Date Ivette Grimes MD [address] [facility] [place] [address] PCP - General Family Medicine 11/21/13 [facility] [address] [facility] [place] [address] Pharmacist Pharmacy 05/19/20 Jemal Orozco MD [address] [place] [address] Cardiology 10/31/22 Court Monitor Relationship Specialty Start Date End Date Ivette Grimes MD [address] [facility] [place] [address] PCP - General Family Medicine 11/21/13 [facility] [address] [facility] [place] [address] Pharmacist Pharmacy 05/19/20 Jemal Orozco MD [address] [place], [place] [address] Cardiology 10/31/22 Court Monitor Relationship Specialty Start Date End Date Ivette Grimes MD [address] [place] [address] PCP - General Family Medicine 11/21/13 [facility] [address] [place] [address] Pharmacist Pharmacy 05/19/20 Jemal Orozco MD [address] [place] [address] Cardiology 10/31/22 Court Monitor Relationship Specialty Start Date End Date Ivette Grimes MD [address] [place] [address] PCP - General Family Medicine 11/21/13 [facility] [address] [place] [address] Pharmacist Pharmacy 05/19/20 Jemal Orozco MD [address] [place] [address] Cardiology 10/31/22 Team Status: Active [...] Dr. Tod Callejas MD Emergency Provider Active Court Monitor Relationship Specialty Start Date End Date Ivette Grimes MD [address] [place] [address] PCP - General Family Medicine 11/21/13 [facility] [address] [place] [address] Pharmacist Pharmacy 05/19/20 Jemal Orozco MD [address] [place], [place] [id number] Cardiology 10/31/22 Court Monitor Relationship Specialty Start Date End Date Ivette Grimes MD [address] [place] [address] PCP - General Family Medicine 11/21/13 [facility] [address] [place] [address] Pharmacist Pharmacy 05/19/20 Jemal Orozco MD [address] [place] [address] Cardiology 10/31/22 Court Monitor Relationship Specialty Start Date End Date Ivette Grimes MD [address] [facility] [place] [address] PCP - General Family Medicine 11/21/13 [facility] [address] [facility] [place] [address] Pharmacist Pharmacy 05/19/20 Jemal Orozco MD [address] [place] [address] Cardiology 10/31/22 Court Monitor Relationship Specialty Start Date End Date Ivette Grimes MD [address] [facility] [place] [address] PCP - General Family Medicine 11/21/13 [facility] [address] [place] [address] Pharmacist Pharmacy 05/19/20 Jemal Orozco MD [address] [place] [address] Cardiology 10/31/22 Court Monitor Relationship Specialty Start Date End Date Ivette Grimes MD [address] [place] [address] PCP - General Family Medicine 11/21/13 [facility] [address] [facility] [place] [address] Pharmacist Pharmacy 05/19/20 Jemal Orozco MD [address] [place] [address] Cardiology 10/31/22 Court Monitor Relationship Specialty Start Date End Date Ivette Grimes MD [address] [place] [address] PCP - General Family Medicine 11/21/13 [facility]ad [facility] [address] [facility] [place] [address] Pharmacist Pharmacy 05/19/20 Jemal Orozco MD [address] [place] [address] Cardiology 10/31/22 Court Monitor Relationship Specialty Start Date End Date Ivette Grimes MD [address] [facility] [place] [address] PCP - General Family Medicine 11/21/13 Kait [facility] [address] [facility] [place] [address] Pharmacist Pharmacy 05/19/20 Jemal Orozco MD [address] [place] [address] Cardiology 10/31/22 Court Monitor Relationship Specialty Start Date End Date Ivette Grimes MD [address] [place] [address] PCP - General Family Medicine 11/21/13 Martinhenry [facility] [address] [facility] [place] [address] Pharmacist Pharmacy 05/19/20 Jemal Orozco MD [address] [place] [address] Cardiology 10/31/22 Court Monitor Relationship Specialty Start Date End Date Ivette Grimes MD [address] [facility] [place] [address] PCP - General Family Medicine 11/21/13 [facility] [address] [facility] [place] [address] Pharmacist Pharmacy 05/19/20 Jemal Orozco MD [address] [place], [place] [id number] Cardiology 10/31/22 Court Monitor Relationship Specialty Start Date End Date Ivette Grimes MD [address] [facility] [place] [address] PCP - General Family Medicine 11/21/13 [facility] [address] [place] [address] Pharmacist Pharmacy 05/19/20 Jemal Orozco MD [address] [place], [place] [id number] Cardiology 10/31/22 Court Monitor Relationship Specialty Start Date End Date Ivette Grimes MD [address] [place] [address] PCP - General Family Medicine 11/21/13 [facility] [address] [place] [address] Pharmacist Pharmacy 05/19/20 Jemal Orozco MD [address] [place] [address] Cardiology 10/31/22 Team Status: Inactive Member Role Status Dates Dr. Ivette Grimes MD Primary Care Provider, Referring Provider Active Dr. Vin Montes MD Attending Provider Active Team Status: Inactive Member Role Status Dates Dr. Ivette Grimes MD Primary Care Provider, Referring Provider Active Jesenia Mercado RELIGIOUS HEALER, RELIGIOUS HEALER-C Attending Provider Active Team Status: Inactive Member [...] Pearl MD Attending Provider, Emergency Provider Active Court Monitor Relationship Specialty Start Date End Date Ivette Grimes MD [address] [facility] [place] [address] PCP - General Family Medicine 11/21/13 [facility] [address] [place] [address] Pharmacist Pharmacy 05/19/20 Jemal Orozco MD [address] [place] [address] Cardiology 10/31/22 Court Monitor Relationship Specialty Start Date End Date Ivette Grimes MD [address] [place] [address] PCP - General Family Medicine 11/21/13 [facility] [address] [place] [address] Pharmacist Pharmacy 05/19/20 Jemal Orozco MD [address] [place] [address] Cardiology 10/31/22 Court Monitor Relationship Specialty Start Date End Date Ivette Grimes MD [address] [place] [address] PCP - General Family Medicine 11/21/13 [facility] [address] [place] [address] Pharmacist Pharmacy 05/19/20 Jemal Orozco MD [address] [place] [address] Cardiology 10/31/22 Court Monitor Relationship Specialty Start Date End Date Ivette Grimes MD [address] [place] [address] PCP - General Family Medicine 11/21/13 [facility] [address] [place] [address] Pharmacist Pharmacy 05/19/20 Jemal Orozco MD [address] [place], [place] 6326395 Cardiology 10/31/22 Team Status: Active Member Role Status Dates Dr. Ivette Grimes MD Primary Care Provider Active Adelina Mason RELIGIOUS HEALER, RELIGIOUS HEALER-C Attending Provider, Willian alvarez Provider Active Court Monitor Relationship Specialty Start Date End Date Ivette Grimes MD [address] [place] [address] PCP - General Family Medicine 11/21/13 [facility] [address] [place] [address] Pharmacist Pharmacy 05/19/20 Jemal Orozco MD [address] [place] [address] Cardiology 10/31/22 Court Monitor Relationship Specialty Start Date End Date Ivette Grimes MD [address] [place] [address] PCP - General Family Medicine 11/21/13 [facility] [address] [place] [address] Pharmacist Pharmacy 05/19/20 Jemal Orozco MD [address] [place], [place] [phone] Cardiology 10/31/22 Court Monitor Relationship Specialty Start Date End Date Ivette Grimes MD [address] [place] [address] PCP - General Family Medicine 11/21/13 [facility] [address] [place] [address] Pharmacist Pharmacy 05/19/20 Jemal Orozco MD [address] [place] [address] Cardiology 10/31/22 Court Monitor Relationship Specialty Start Date End Date Ivette Grimes MD [address] [place] [address] PCP - General Family Medicine 11/21/13 [facility] [address] [place] [address] Pharmacist Pharmacy 05/19/20 Jemal Orozco MD [address] [place] [address] Cardiology 10/31/22 Court Monitor Relationship Specialty Start Date End Date Ivette Grimes MD [address] [place] [address] PCP - General Family Medicine 11/21/13 [facility] [address] [place] [address] Pharmacist Pharmacy 05/19/20 Jemal Orozco MD [address] [place] [address] Cardiology 10/31/22 Court Monitor Relationship Specialty Start Date End Date Ivette Grimes MD [address] [place] [address] PCP - General Family Medicine 11/21/13 [facility] [address] [place] [address] Pharmacist Pharmacy 05/19/20 Jemal Orozco MD [address] [place] [address] Cardiology 10/31/22 Team Status: Inactive Member Role Status Dates Dr. Ivette Grimes MD Primary Care Provider Active TETO RIDER Attending Provider, Referring Pro vider Active Team Status: Inactive Member Role Status Dates Dr. Ivette Grimes MD Primary Care Provider Active Dr. Sam Pearl MD Emergency Provider Active Court Monitor Relationship Specialty Start Date End Date Ivette Grimes MD [address] [place] [address] PCP - General Family Medicine 11/21/13 [facility] [address] [place] [address] Pharmacist Pharmacy 05/19/20 Jemal Orozco MD [address] [place] [address] Cardiology 10/31/22 Court Monitor Relationship Specialty Start Date End Date Ivette Grimes MD [address] [place] [address] PCP - General Family Medicine 11/21/13 [facility] [address] [place] [address] Pharmacist Pharmacy 05/19/20 Jemal Orozco MD [address] [place] [address] Cardiology 10/31/22 Court Monitor Relationship Specialty Start Date End Date Ivette Grimes MD [address] [place] [address] PCP - General Family Medicine 11/21/13 [facility] [address] [place] [address] Pharmacist Pharmacy 05/19/20 Jemal Orozco MD [address] [place], [place] 255[address] Cardiology 10/31/22 Court Monitor Relationship Specialty Start Date End Date Ivette Grimes MD [address] [place] [address] PCP - General Family Medicine 11/21/13 [facility] [address] [place] [address] Pharmacist Pharmacy 05/19/20 Jemal Orozco MD [address] [place], [place] 25022[address] Cardiology 10/31/22 Court Monitor Relationship Specialty Start Date End Date Ivtete Grimes MD [address] [place] [address] PCP - General Family Medicine 11/21/13 [facility] [address] [place] [address] Pharmacist Pharmacy 05/19/20 Jemal Orozco MD [address] [place], [place] 4664[address] Cardiology 10/31/22 Court Monitor Relationship Specialty Start Date End Date Ivette Grimes MD [address] [place] [address] PCP - General Family Medicine 11/21/13 [facility] [address] [place] [address] Pharmacist Pharmacy 05/19/20 Jemal Orozco MD [address] [place] [address] Cardiology 10/31/22 Court Monitor Relationship Specialty Start Date End Date Ivette Grimes MD [address] [place], [place] 22293691 PCP - General Family Medicine 11/21/13 [facility] [address] [place], [place] 787061 Pharmacist Pharmacy 05/19/20 Jemal Orozco MD [address] [place] [address] Cardiology 10/31/22 Team Status: Active Member Role Status Dates Dr. Ivette Grimes MD Family Provider Active Team Status: Inactive Member Role Status Dates Dr. Bibiana Rehman DC Attending Provider Active Team Status: Inactive Member Role Status Dates Dr. Ivette Grimes MD Primary Care Provider Active Adelina Mason RELIGIOUS HEALER, RELIGIOUS HEALER-C Attending Provider, Referrin g Provider Active Team [...] MD Admit Provider, Attending Prov ider Active Court Monitor Relationship Specialty Start Date End Date Ivette Grimes MD [address] [place], [place] 892561 PCP - General Family Medicine 11/21/13 [facility] [address] [place], [place] 81641691 Pharmacist Pharmacy 05/19/20 Jemal Orozco MD [address] [place], [place] 17901[address] Cardiology 10/31/22 Court Monitor Relationship Specialty Start Date End Date Ivette Grimes MD [address] [facility] [place] [address] PCP - General Family Medicine 11/21/13 Jagdish Carballo, [facility] [address] [facility] [place] [address] Pharmacist Pharmacy 05/19/20 Jemal Orozco MD [address] [place], [place] 7160[address] Cardiology 10/31/22 Court Monitor Relationship Specialty Start Date End Date Ivette Grimes MD [address] [facility] [place] [address] PCP - General Family Medicine 11/21/13 Jagdish Carballo, [facility] [address] [facility] [place] [address] Pharmacist Pharmacy 05/19/20 Jemal Orozco MD [address] [place] [address] Cardiology 10/31/22 Court Monitor Relationship Specialty Start Date End Date Ivette Grimes MD [address] [facility] [place] [address] PCP - General Family Medicine 11/21/13 Jagdish Carballo, [facility] [address] [facility] [place] [address] Pharmacist Pharmacy 05/19/20 Jemal Orozco MD [address] [place] [address] Cardiology 10/31/22 Team Status: Inactive Member Role [...] MD Admit Provider, Attending Prov ider Active Court Monitor Relationship Specialty Start Date End Date Ivette Grimes MD [address] [place] [address] PCP - General Family Medicine 11/21/13 [facility] [address] [place], [place] 035991 Pharmacist Pharmacy 05/19/20 Jemla Orozco MD [address] [place] [address] Cardiology 10/31/22 Court Monitor Relationship Specialty Start Date End Date Ivette Grimes MD [address] [place] [address] PCP - General Family Medicine 11/21/13 [facility] [address] [place], [place] 169808 [phone] Pharmacist Pharmacy 05/19/20 Jemal Orozco MD [address] [place] [address] Cardiology 10/31/22 Court Monitor Relationship Specialty Start Date End Date Ivette Grimes MD [address] [place] [address] PCP - General Family Medicine 11/21/13 [facility] [address] [place] [address] Pharmacist Pharmacy 05/19/20 Jemal Orozco MD [address] [place], [place] 5490995 Cardiology 10/31/22 Team Status: Inactive Member Role Status Dates Dr. Ivette Grimes MD Primary Care Provider Active Dr. Luan Zepeda DO Emergency Provider Active Court Monitor Relationship Specialty Start Date End Date Ivette Grimes MD [address] [place] [address] PCP - General Family Medicine 11/21/13 [facility] [address] [place] [address] Pharmacist Pharmacy 05/19/20 Jemal Orozco MD [address] [place], [place] 81964[address] Cardiology 10/31/22 Court Monitor Relationship Specialty Start Date End Date Ivette Grimes MD [address] [place] [address] PCP - General Family Medicine 11/21/13 [facility] [address] [place] [address] Pharmacist Pharmacy 05/19/20 Jemal Orozco MD [address] [place], [place] 0[address]40[address] Cardiology 10/31/22 Court Monitor Relationship Specialty Start Date End Date Ivette Grimes MD [address] [place] [address] PCP - General Family Medicine 11/21/13 [facility] [address] [place] [address] Pharmacist Pharmacy 05/19/20 Jemal Orozco MD [address] [place] [address] Cardiology 10/31/22 Team Status: Inactive Member Role Status Dates Dr. Ivette Grimes MD Primary Care Provider Active Dr. Luan Zepeda DO Attending Provider, Roxane go Active Court Monitor Relationship Specialty Start Date End Date Ivette Grimes MD [address] [place] [address] PCP - General Family Medicine 11/21/13 Jemal Orozco MD [address] [place] [address] Cardiology 10/31/22 Court Monitor Relationship Specialty Start Date End Date Ivette Grimes MD [address] [place] [address] PCP - General Family Medicine 11/21/13 Jemal Orozco MD [address] [place] [address] Cardiology 10/31/22 Court Monitor Relationship Specialty Start Date End Date Ivette Grimes MD [address] [place], [place] 716061 PCP - General Family Medicine 11/21/13 Jemal Orozco MD [address] [place] [address] Cardiology 10/31/22 Court Monitor Relationship Specialty Start Date End Date Ivette Grimes MD [address] [place] [address] PCP - General Family Medicine 11/21/13 Jemal Orozco MD [address] [place] [address] Cardiology 10/31/22 Court Monitor Relationship Specialty Start Date End Date Ivette Grimes MD [address] [place] [address] PCP - General Family Medicine 11/21/13 Jemal Orozco MD [address] [place] [address] Cardiology 10/31/22 Court Monitor Relationship Specialty Start Date End Date Ivette Grimes MD [address] [place] [address] PCP - General Family Medicine 11/21/13 Jemal Orozco MD [address] [place], [place] 556[address] Cardiology 10/31/22 Court Monitor Relationship Specialty Start Date End Date Ivette Grimes MD [address] [place], [place] 376911 PCP - General Family Medicine 11/21/13 Jemal Orozco MD [address] [place], [place] 0037395 Cardiology 10/31/22 Court Monitor Relationship Specialty Start Date End Date Ivette Grimes MD [address] [place], [place] 768071 PCP - General Family Medicine 11/21/13 Jemal Orozco MD [address] [place], [place] 9541795 Cardiology 10/31/22 Court Monitor Relationship Specialty Start Date End Date Ivette Grimes MD [address] [place], [place] 148671 PCP - General Family Medicine 11/21/13 Jemal Orozco MD [address] [place], [place] 9678[address] Cardiology 10/31/22 Court Monitor Relationship Specialty Start Date End Date Ivette Grimes MD [address] [place] [address] PCP - General Family Medicine 11/21/13 Jemal Orozco MD [address] [place] [address] Cardiology 10/31/22 Court Monitor Relationship Specialty Start Date End Date Ivette Grimes MD [address] [place] [address] PCP - General Family Medicine 11/21/13 Jemal Orozco MD [address] [place], [place] 9059195 Cardiology 10/31/22 Court Monitor Relationship Specialty Start Date End Date Ivette Grimes MD [address] [place], [place] 868721 PCP - General Family Medicine 11/21/13 Jemal Orozco MD [address] [place] [address] Cardiology 10/31/22 Court Monitor Relationship Specialty Start Date End Date Ivette Grimes MD [address] [place], [place] 707551 PCP - General Family Medicine 11/21/13 Jemal Orozco MD [address] [place] [address] Cardiology 10/31/22 Court Monitor Relationship Specialty Start Date End Date Ivette Grimes MD [address] [place], [place] 244111 PCP - General Family Medicine 11/21/13 Jemal Orozco MD [address] [place] [address] Cardiology 10/31/22 Court Monitor Relationship Specialty Start Date End Date Ivette Grimes MD [address] [place], [place] 889591 PCP - General Family Medicine 11/21/13 Jagdish Carballo [facility] [address] [place], [place] 079761 Pharmacist Pharmacy 05/19/20 12/25/23 Jemal Orozco MD [address], [place] 6776495 Cardiology 10/31/22 Court Monitor Relationship Specialty Start Date End Date Ivette Grimes MD [address] [place], [place] 356381 PCP - General Family Medicine 11/21/13 Jemal Orozco MD [address] [place], [place] 0844[address] Cardiology 10/31/22 Court Monitor Relationship Specialty Start Date End Date Ivette Grimes MD [address] [place], [place] 702461 PCP - General Family Medicine 11/21/13 Jemal Orozco MD [address] [place] [address] Cardiology 10/31/22 Court Monitor Relationship Specialty Start Date End Date Ivette Grimes MD [address] [place] [address] PCP - General Family Medicine 11/21/13 Jemal Orozco MD [address] [place], [place] 6137495 Cardiology 10/31/22 Court Monitor Relationship Specialty Start Date End Date Ivette Grimes MD [address] [place], [place] 135121 PCP - General Family Medicine 11/21/13 Jemal Orozco MD [address] [place], [place] 6859995 Cardiology 10/31/22 Court Monitor Relationship Specialty Start Date End Date Ivette Grimes MD [address] [place], [place] 687041 PCP - General Family Medicine 11/21/13 Jemal Orozco MD [address] [place] [address] Cardiology 10/31/22 Cindy Edouard APRN.EBD TEACHER [address] [place] [address] Network Technician Family Medicine 10/12/24 Lubna De La Garza IRON MINER BLASTING.EBD TEACHER [address] [place] [address] Network Technician [facility] Medicine 10/12/24 Court Monitor Relationship Specialty Start Date End Date Ivette Grimes MD [address] [place] [address] PCP - General Family Medicine 11/21/13 Jemal Orozco MD [address] [place], [place] 1969[address] Cardiology 10/31/22 Cindy Edouard APRN.EBD TEACHER [address] [place] [address] Network Technician Family Medicine 10/12/24 Lubna De La Garza APRN.EBD TEACHER [address] [place] [address] Network Technician Family Medicine 10/12/24 Court Monitor Relationship Specialty Start Date End Date Ivette Grimes MD [address] [place] [address] PCP - General Family Medicine 11/21/13 Jemal Orozco MD [address] [place], [place] 15384[address] Cardiology 10/31/22 Cindy Edouard IRON MINER BLASTING.EBD TEACHER [address] [place] [address] Network Technician Family Medicine 10/12/24 Lubna De La Garza IRON MINER BLASTING.EBD TEACHER [address] [place] [address] Network Technician Family Medicine 10/12/24 Court Monitor Relationship Specialty Start Date End Date Ivette Grimes MD [address] [place] [address] PCP - General Family Medicine 11/21/13 Jemal Orozco MD [address] [place], [place] 0380395 Cardiology 10/31/22 Cindy Edouard IRON MINER BLASTING.EBD TEACHER [address] [place] [address] Network Technician Family Medicine 10/12/24 Lubna De La Garza IRON MINER BLASTING.EBD TEACHER [address] [place] [address] Network Technician Family Medicine 10/12/24 Court Monitor Relationship Specialty Start Date End Date Ivette Grimes MD [address] [place], [place] 633541 PCP - General Family Medicine 11/21/13 Jemal Orozco MD [address] [place], [place] 2816995 Cardiology 10/31/22 Cindy Edouard IRON MINER BLASTING.EBD TEACHER [address] [place] [address] Network Technician [facility] Medicine 10/12/24 Lubna De La Garza IRON MINER BLASTING.EBD TEACHER [address] [place] [address] [facility] 10/12/24 Court Monitor Relationship Specialty Start Date End Date Ivette Grimes MD [address] [place] [address] PCP - General Family Medicine 11/21/13 Jemal Orozco MD [address] [place], [place] 80037[address] Cardiology 10/31/22 Cindy Edouard IRON MINER BLASTING.EBD TEACHER [address] [place] [address] [facility] 10/12/24 Lubna De La Garza IRON MINER BLASTING.EBD TEACHER [address] [place] [address] [facility] 10/12/24 Court Monitor Relationship Specialty Start Date End Date Ivette Grimes MD [address] [place] [address] PCP - General Family Medicine 11/21/13 Jemal Orozco MD [address] [place] [address] Cardiology 10/31/22 Cindy Edouard, IRON MINER BLASTING.EBD TEACHER [address] [place] [address] Network Technician Family Medicine 10/12/24 Lubna De La Garza IRON MINER BLASTING.EBD TEACHER [address] [place] [address] Network Technician Family Medicine 10/12/24 Court Monitor Relationship Specialty Start Date End Date Ivette Grimes MD [address] [place] [address] PCP - General Family Medicine 11/21/13 Jemal Orozco MD [address] [place] [address] Cardiology 10/31/22 Cindy Edouard, IRON MINER BLASTING.EBD TEACHER [address] [place] [address] Network Technician Family Medicine 10/12/24 Lubna De La Garza IRON MINER BLASTING.EBD TEACHER [address] [place] [address] Network Technician Family Medicine 10/12/24 Court Monitor Relationship Specialty Start Date End Date Ivette Grimes MD [address] [place] [address] PCP - General Family Medicine 11/21/13 Jemal Orozco MD [address] [place], [place] 39238[address] Cardiology 10/31/22 Cindy Edouard, IRON MINER BLASTING.EBD TEACHER [address] [place] [address] Network Technician Family Medicine 10/12/24 Lubna De La Garza IRON MINER BLASTING.EBD TEACHER [address] [place] [address] Network Technician Family Medicine 10/12/24 Court Monitor Relationship Specialty Start Date End Date Ivette Grimes MD [address] [place], [place] 572541 PCP - General Family Medicine 11/21/13 Jemal Orozco MD [address] [place], [place] 7582895 Cardiology 10/31/22 Cindy Edouard, IRON MINER BLASTING.EBD TEACHER [address] [place] [address] Network Technician Family Medicine 10/12/24 Lubna De La Garza IRON MINER BLASTING.EBD TEACHER [address] [place] [address] Network Technician Family Medicine 10/12/24 Court Monitor Relationship Specialty Start Date End Date Ivette Grimes MD [address] [place] [address] PCP - General Family Medicine 11/21/13 Jemal Orozco MD [address] [place] [address] Cardiology 10/31/22 Cindy Edouard IRON MINER BLASTING.EBD TEACHER [address] [place] [address] [facility] 10/12/24 Lubna De La Garza IRON MINER BLASTING.EBD TEACHER [address] [place] [address] [facility] 10/12/24 Court Monitor Relationship Specialty Start Date End Date Ivette Grimes MD [address] [place], [place] 686531 PCP - General Family Medicine 11/21/13 Jemal Orozco MD [address] [place] [address] Cardiology 10/31/22 Cindy Edouard IRON MINER BLASTING.EBD TEACHER [address] [place], [place] 3386[address] [facility] 10/12/24 Lubna De La Garza IRON MINER BLASTING.EBD TEACHER [address] [place], [place] [address] [facility] 10/12/24 Team Status: Active Member Role Status Dates Dr. Ivette Grimes MD Primary Care Provider Active Team Status: Inactive Member Role Status Dates Dr. Ivette Grimes MD Primary Care Provider Active Start: October 16, 2024 End: October 16, 2024 Dr. Sam eParl MD Attending Provider Active Start: October 16, [...] January 28, 2025 End: January 28, 2025 Court Monitor Relationship Specialty Start Date End Date Ivette Grimes MD [address] [place] [address] PCP - General Family Medicine 11/21/13 Jemal Orozco MD [address] [place] [address] Cardiology 10/31/22 Cindy Edouard APRN.CNP [address] [place], [place] [id number] [facility] 10/12/24 Lubna De La Garza IRON MINER BLASTING.EBD TEACHER [address] [place], [place] [id number] [facility] 10/12/24 Court Monitor Relationship Specialty Start Date End Date Ivette Grimes MD [address] [place], [place] [phone] PCP - General Family Medicine 11/21/13 Jemal Orozco MD [address] [place] [address] Cardiology 10/31/22 Cindy Edouard APRN.EBD TEACHER [address] [place], [place] [address] [facility] 10/12/24 Lubna De La Garza IRON MINER BLASTING.EBD TEACHER [address] [place], [place] [phone] [facility] 10/12/24 Team Status: Inactive Member Role Status [...] March 22, 2025 End: March 22, 2025 Court Monitor Relationship Specialty Start Date End Date Ivette Grimes MD [address] [place] [address] PCP - General Family Medicine 11/21/13 Jemal Orozco MD [address] [place] [address] Cardiology 10/31/22 Cindy Edouard APRN.EBD TEACHER [address] [place], [place] [id number] Network Technician Family Medicine 10/12/24 Lubna De La Garza, IRON MINER BLASTING.EBD TEACHER [address] [place], [place] [phone] [facility] Team Status: Inactive Member Role Status Dates Dr. Ivette Grimes MD Primary Care Provider Active Start: April 05, 2025 End: April 05, 2025 Dr. Ivette Grimes MD Referring Provider Active Start: April 05, 2025 End: April 05, 2025 Dr. Bibiana Rehman , [place]CE[place] Attending Provider Active S tart: April 05, 2025 End: April 05, 2025 Court Monitor Relationship Specialty Start Date End Date Ivette Grimes MD [address] [place], [place] [id number] PCP - General Family Medicine 11/21/13 Jemal Orozco MD [address] [place], [place] [phone] Cardiology 10/31/22 Cindy Edouard, IRON MINER BLASTING.EBD TEACHER [address] [place] [address] [facility] 10/12/24 Lubna De La Garza, IRON MINER BLASTING.EBD TEACHER [address] [place] [address] [facility] 10/12/24 Team Status: Active Member Role Status [...] 2025 End: January 28, 2025 Dr. Ivette Grmies MD Referring Provider Active Start: January 28, [...] Status: Inactive Member Role/Relationship Status Dates Dr. vIette Grimes MD Primary Care Provider Active Start: [...] June 01, 2025 End: June 01, 2025 Court Monitor Relationship Specialty Start Date End Date Ivette Grimes MD [address] [place], [place] [phone] PCP - General Family Medicine 11/21/13 Jemal Orozco MD [address] [place] [address] Cardiology 10/31/22 Cindy Edouard, IRON MINER BLASTING.EBD TEACHER [address] [place], [place] [address] [facility]/24 Lubna De La Garza IRON MINER BLASTING.EBD TEACHER [address] [place], [place] [phone] [facility] Team Status: Inactive Member Role/Relationship Status Dates Dr. Ivette Grimse MD Primary [...] 11, 2025 End: March 11, 2025 Brett Quiroag MD Referring Provider Active St art: March [...] June 09, 2025 End: June 09, 2025 Court Monitor Relationship Specialty Start Date End Date Ivette Grimes MD [address] [place], [place] [address] PCP - General Family Medicine 11/21/13 Jemal Orozco MD [address] [place] [address] Cardiology 10/31/22 Cindy Edouard, IRON MINER BLASTING.EBD TEACHER [address] [place], [place] [address] Network Technician [facility] 10/12/24 Lubna De La Garza IRON MINER BLASTING.EBD TEACHER [address] [place], [place] [address] [facility] 10/12/24 Team Status: Inactive Member Role/Relationship Status [...] content) DATE CREATED AUTHOR 01/25/2023 [facility] DATE CREATED AUTHOR AUTHOR'S ORGANIZ ATION 06/20/2025 [facility] DATE CREATED AUTHOR AUTHOR'S ORGANIZ ATION 07/05/2025 [facility] Inactive Administered Medications - up to [...] BE BASED ON THE PRIMARY CLINICAL RECORDS. [employer] provides no warranty or guarantee of the accuracy or completeness of information in this document.
[2025-07-06] VITALS (26 sets, daily range): BP systolic 100–129; BP diastolic 46–76; PULSE 65–76; RESP 14–24; TEMP 36.1–37.4; O2SAT 96–99; BMI 44.8
--- NOTE | 2025-07-06 00:01 | CPS ---
[2340] Pt.'s home BiPAP unit set-up and ready for use.
[2025-07-06 00:06] LABS: Iron 12 ug/dL (50-170); Iron Binding Capacity,Unsat 154 ug/dL (228-428)
[2025-07-06 00:28] LABS: Iron Binding Capacity,Total 166 ug/dL (250-450)
[2025-07-06] MEDS: Dext 5%-0.45% NS 1,000 ML 150 ML IV ×2 (00:54→08:39)
--- NOTE | 2025-07-06 00:55 | CON.PCM.CC_ITS ---
HPI Consult Data Date of Consult: 07/06/25 HPI Narrative HPI Narrative: 45 yrs old female with past medical history of Morbid obesity, Diabetes mellitus on Ozembic, peripheral neuropathy, LETITIA on CPAP q HS, HTN, Anxiety and Depression, GERD, Chronic migraines, s/p L shoulder surgery secondary L shoulder bursitis 06/23/25 presented to ED for change in mental status and generalized weakness Labs significant for Hgb 9.5, HCT 28, Na 128, Hco3 15, Cr 1.98, Glu 533, U/A positive for WBC, LE Patient is given IVF bolus, insulin drip, and antibiotics On my evaluation of patient in ICU, she is awake, alert, oriented not in acute distress P/E: Obese on CPAP HEENT: Atraumatic Respiratory: Decreased breath sounds on the bases CVS: S1, S2 are well heard Abd: Soft Extre:Trace edema ASSEMBLER TUBING: Awake, alert . oriented Assessment/Plan # Hyperglycemia not in DKA likely due to UTI, patient reported she is compliant to her medications S/p IVF bolus On insulin drip Betahydroxy negative Monitor blood sugar Q 1 hrs, BMP Q 4 hrs Replete electorlytes Check A1c # JOHN Likely due to dehydration in the light of hyperglycemia Monitor urine output and renal function Avoid Nephrotoxic agents # Hyponatremia Pseudo due to hyperglycemia # UTI Continue with antibiotics Follow up on cultures # Hx of peripheral neuropathy Continue with home meds # Hx of Anxiety/Depression Continue with home meds # s/p L shoulder surgery secondary L shoulder bursitis Sling in place Pain management # Anemia Likely of chronic illness Monitor H and H Critical care time 60 minutes Entire encounter done via Telemedicine [facility] Medical History Impingement of left shoulder Diabetes Fatty liver Gastric reflux BiPAP (biphasic positive airway pressure) dependence Sleep apnea Non-smoker History of stress test History of echocardiogram Cardiology follow-up encounter Abnormal ECG Prolonged Q-T interval on ECG Microalbuminuria LETITIA (obstructive sleep apnea) Back pain 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 Nausea Left shoulder pain Pain of left scapula Left upper extremity numbness Left shoulder strain Obstructive Sleep Apnea-Hypopnea Syndrome Fatty liver Type 2 diabetes mellitus with microalbuminuria Type 2 diabetes mellitus without complication, with long-term current use of insulin History of stent into kidney Anxiety Acute cholecystitis Segmental and somatic dysfunction of cervical region Migraines Acute bronchitis Acute respiratory insufficiency Dyspnea History of obstructive sleep apnea Elevated triglycerides with high cholesterol Calculus of left kidney Nonalcoholic hepatosteatosis Hydroureter, left Hydronephrosis, left Acute kidney injury Pyelonephritis Nephrolithiasis Obesity Hypertension Type 2 diabetes mellitus Segmental and somatic dysfunction of lumbar region Vertigo Left upper quadrant abdominal pain Dysuria Urinary tract infection Segmental and somatic dysfunction of pelvic region Segmental and somatic dysfunction of thoracic region Lumbar facet arthropathy Lumbosacral spondylosis Radiculopathy of lumbosacral region Disc displacement, lumbar Degeneration of intervertebral disc of lumbosacral region Home Medications ?Medication ?Instructions ?Recorded ?Last Taken ?Type blood sugar diagnostic (Blood #10 ea 04/26/20 Unknown History Glucose Test strips) ipratropium bromide 21 mcg (0.03 2 spray intranasal BI D PRN 08/23/20 08/03/23 History %) nasal spray allergies albuterol sulfate 90 mcg/actuation 2 puff inhalation Q 4H PRN 08/10/22 08/03/23 History aerosol inhaler shortness of breath or wheez ing fexofenadine 180 mg tablet 180 mg PO DAILY allergies 1 06/22/25 History (Allergy Relief (fexofenadine)) levonorgestrel 17.5 mcg/24 hr (up 1 device intrauterin e ONCE 08/10/22 06/23/25 History to 5 yrs) 19.5mg intrauterine control device tizanidine 4 mg tablet 4 mg PO Q8H PRN Muscle Spasm 08/10/22 06/20/25 History omeprazole 20 mg capsule,delayed 20 mg PO DAILY PRN ge rd 08/16/22 06/22/25 History release topiramate 100 mg tablet 100 mg PO BID seizures 08/1606/23/25 History fluoxetine 20 mg capsule 20 mg PO QHS mental health 0 12/28/22 06/22/25 History gabapentin 300 mg capsule 300 mg PO QHS nerve pain 06/22/25 History lisinopril 10 mg tablet 10 mg PO DAILY blood pressur e 12/28/22 06/22/25 History ondansetron HCl 4 mg tablet 4 mg PO Q8H PRN nausea Unknown History rimegepant 75 mg disintegrating 75 mg PO DAILY PRN rosalina ray 02/04/24 11/10/24 History tablet (Nurtec ODT) headache semaglutide 2 mg/dose (8 mg/3 mL) 2 mg subcut QWEEK Unknown History subcutaneous pen injector (Ozempic) Allergy/AdvReac Type Severity Reaction Status Date / Time Corticosteroids Allergy Hives Verified 07/05/25 17:33 (Glucocorticoids) (steroids) lidocaine AdvReac Intermediate Hives Verified 07/05/25 17:33 Family History Father Diabetes Myocardial infarction Pancreatic cancer Mother Alcohol abuse Drug abuse Grandfather Diabetes Grandmother Lung cancer Grandmother Heart disease Triple bypass surgery Surgical History History of urethral stent (~2018) Hx laparoscopic cholecystectomy (~2005) H/O: (~2005) Social History household members: none Smoking Status: Never smoker alcohol intake: never substance use type: does not use caffeine: Yes Type: coffee what type of physical activity do you participate in: walking frequency: daily seatbelt use: always do you feel safe at home: Yes Objective Data Objective Data Vital Signs: Vital Signs Last response 3 Temperature 37.4 C H 07/06/25 00:15 Temperature Source Oral 07/06/25 00:15 Pulse Rate 75 07/06/25 00:30 Respiratory Rate 23 H 07/06/25 00:30 Respiratory Effort Normal, Non-Labored 07/05/25 17:32 Respiratory Depth Normal 07/05/25 17:32 Respiratory Pattern Normal 07/05/25 17:32 Blood Pressure 121/58 H 07/06/25 00:30 Blood Pressure Mean 79 07/06/25 00:30 Blood Pressure Source Monitor 07/06/25 00:30 Pulse Ox 97 07/06/25 00:30 Oxygen Delivery Method Room Air 07/06/25 00:30 I&O: I&O Last 24 Hours 3 07/05/25 07/05/25 07/06/25 11:59 23:59 11:59 Intake Total 1074.75 / 1074.75 462.71 / 462.71 Balance 1074.75 / 1074.75 462.71 / 462.71 I&O: Total Stay 3 07/05/25 17:32 thru 07/06/25 00:54 Intake Total 1537.46 Balance 1537.46 Current Meds Ordered / Administered: Current meds ordered / Administered 3 Generic Name Dose Route Start Last Admin Trade Name Freq PRN Reason Stop Dose Admin Acetaminophen 650 mg 07/05/25 23:32 Acetaminophen 325 Mg Tablet PO Q4H PRN PRN Fever, pain 1-08/13 Al Hydroxide/Mg Hydroxide 30 ml 07/05/25 23:32 Mag Hydrox/Al Hydrox/Simeth 30 Ml Udc PO Q6H PRN PRN Gastric Burning Albuterol Sulfate 2.5 mg 07/05/25 23:32 Albuterol 2.5 Mg/3 Ml Vial.Neb. INHALATION Q2H PRN PRN Dyspnea, wheezing Fluoxetine HCl 20 mg 07/05/25 23:32 07/06/25 00:04 Fluoxetine 20 Mg Capsule PO 20 mg QHS GEORGE Administration Gabapentin 300 mg 07/05/25 23:32 07/06/25 00:04 Gabapentin 300 Mg Capsule PO 300 mg QHS GEORGE Administration Glucagon 1 mg 07/05/25 23:32 Glucagon 1 Mg/Ml Syringe IM X1 PRN Hypoglycemia Protocol Guaifenesin 10 ml 07/05/25 23:32 Guaifenesin 10 Ml Udc (200mg/10ml) PO Q4H PRN PRN COUGH Insulin Human Lispro 100 unit/ 100 mls @ 0 mls/hr 07/05/25 19:45 07/06/25 00:54 Sodium Chloride CONT INF 4.5 ml/hr .Q0M GEORGE 4.5 mls/hr Titration Protocol As Directed Ceftriaxone Sodium 2 gm/ 50 mls @ 100 mls/hr 07/06/25 22:00 Sodium Chloride IV 2200 GEORGE Dextrose 250 mls @ 0 mls/hr 07/05/25 23:32 Dextrose 10%-Water IV .Q0M PRN HYPOGLYCEMIA Protocol As Directed Sodium Chloride 250 mls @ 15 mls/hr 07/05/25 23:36 IV .[id number] PRN Saline Flush Sodium Chloride 250 mls @ 15 mls/hr 07/05/25 23:36 IV .[id number] PRN Additional IVPB Infusion Dextrose/Sodium Chloride 1,000 mls @ 150 mls/hr 07/06/25 00:20 07/06/25 00:54 IV 150 mls/hr .Q6H40M GEORGE Administration Loperamide HCl 2 mg 07/05/25 23:32 Loperamide 2 Mg Capsule PO Q2H PRN PRN DIARRHEA Loratadine 10 mg 07/06/25 10:00 Loratadine 10 Mg Tablet PO DAILY GEORGE Melatonin 3 mg 07/05/25 23:32 Melatonin 3 Mg Tablet PO QHS PRN PRN INSOMNIA Ondansetron HCl 4 mg 07/05/25 23:32 Ondansetron 4 Mg/2 Ml Vial IV Q8H PRN PRN NAUSEA/VOMITING Pantoprazole Sodium 20 mg 07/05/25 23:32 07/06/25 00:04 Pantoprazole Sodium 20 Mg Tablet PO 20 mg BID GEORGE Administration Sodium Chloride 10 - 40 ml 07/05/25 23:36 0.9% Saline Lock 10 Ml Syringe IV UD PRN SALINE FLUSH Topiramate 100 mg 07/05/25 23:32 07/06/25 00:04 Topiramate 100 Mg Tablet PO 100 mg BID GEORGE Administration Lab / Micro Data 07/05/25 17:48 07/05/25 20:45 Labs: Laboratory Results - last 24 hr 07/05/25 17:40: POC Glucose 459 H* 07/05/25 17:48: WBC 6.9, RBC 2.94 L, Hgb 9.5 L, Hct 28.2 L, MCV 95.9, MCH 32.3 H , MCHC 33.7, RDW Std Deviation 48.8 H, RDW Coeff of Itzel 13.8, Plt Count 136 L, MPV 10.4, Immature Gran % (Auto) 0.900, Neut % (Auto) 77.6 H, Lymph % (Auto) 14.4 L, [place] % (Auto) 5.8, Eos % (Auto) 0.9, Baso % (Auto) 0.4, Absolute Neuts (auto) 5.3, Absolute Lymphs (auto) 0.99, Nucleated RBC % 0, Sodium 128 L, Potassium 3.8, Chloride 98, Carbon Dioxide 15.0 L, Anion Gap 15, BUN 41 H, C reatinine 1.98 H, Estim Creat Clear Calc 51.75, Est GFR (MDRD) Non-Af 32 L, B UN/Creatinine Ratio 20.7 H, Glucose 533 H*, Lactic Acid 2.2 H*, Calcium 8.3, Phosphorus 3.0, Magnesium 2.2, Total Bilirubin 0.57, AST 19, ALT 26, Alkaline Phosphatase 183 H, Total Protein 7.1, Albumin 3.3 L, Globulin 3.7, Albumin/Globulin Ratio 0.9, b-Hydroxybutyric mmol/L 0.1 07/05/25 18:02: Urine Color Straw, Urine Clarity Sl. Cloudy, Urine pH 6.0, Ur Specific [place] 1.010, Urine Protein 30 H, Urine Glucose (UA) 1000 H, Urine Ketones Negative, Urine Occult Blood 150 H, Urine Nitrite Negative, Urine Bilirubin Negative, Urine Urobilinogen Normal, Ur Leukocyte Esterase 100 H, Urine RBC 5-10 SEEN, Urine WBC 10-25 SEEN, Ur Squamous Epith Cells 5-10 SEEN, Urine Bacteria 3+, Urine Mucus 0 SEEN 07/05/25 20:26: POC Glucose 369 H 07/05/25 20:45: Sodium 130 L 07/05/25 20:45: Sodium 130 L, Potassium 3.6 07/05/25 20:45: Potassium 3.6, Chloride 101 07/05/25 20:45: Chloride 101, Carbon Dioxide 17.3 L 07/05/25 20:45: Carbon Dioxide 15.9 L, Anion Gap 11 07/05/25 20:45: Anion Gap 13, Serum Osmolality 307 H, Iron 12 L, TIBC 166 L, I heidi Saturation 7.2 L, Unsaturated IBC 154 L, Ferritin 601 H 07/05/25 21:35: POC Glucose 321 H 07/05/25 22:38: POC Glucose 265 H 07/05/25 22:40: Lactic Acid 1.5 07/05/25 23:54: POC Glucose 211 H ABG Data ABG results: ABG 07/05/25 17:55 Specimen Type SHIRA Sample Site Not entered VBG pH 7.32 VBG pO2 77 H VBG HCO3 16 L VBG Total CO2 17 L VBG O2 Sat (Calc) 94 H VBG Base Excess -10 L POC Mix VBG pCO2 Pt Tmp 31.6 L O2 Delivery Device Not entered Imaging Radiology Impression Chest X-Ray 07/05/25 18:27 IMPRESSION: Cardiomegaly with mild vascular congestion. No airspace consolidation or sizable pleural effusion. Reading Location: [id number] Abdomen/Pelvis CT 07/05/25 22:18 IMPRESSION: 1. A 10 mm stone at the left UPJ resulting in mild left hydronephrosis. 2. Mildly prominent reactive left para-aortic lymph nodes. Reading Location: [id number] Assessment and Plan . Assessment and plan: Critical Care Time: The entirety of this encounter was done via Telemedicine
[2025-07-06 03:00] LABS: Anion Gap 12 (5-15); Carbon Dioxide 17.4 mmol/L (21.0-32.0); Chloride 104 mmol/L (98-108); Potassium 3.4 mmol/L (3.3-5.1)
[2025-07-06] MEDS: 0.9% Saline Lock 10 ML Syringe IV ×2 (06:06→21:19)
[2025-07-06 06:15] LABS: Hematocrit 25.4 % (37-47); Hemoglobin 8.7 g/dL (12.0-15.0); Immature Granulocytes Count 0.090 X10^3/uL (0.0-0.0); Mean Corp Hgb Conc 34.3 g/dL (32-36); Mean Corpuscular Volume 96.6 fL (81-99); Mean Platelet Vol. 9.9 fl (6.2-12.0); NRBC Flagged by Analyzer 0 % (0-5); Platelet Count 145 K/mm3 (150-450); RBC Distribution Width CV 13.9 % (11.6-14.6); RBC Distribution Width SD 49.3 fl (35.1-43.9); Red Blood Count 2.63 M/mm3 (4.2-5.4); White Blood Count 6.4 K/mm3 (4.4-11.0)
[2025-07-06 06:33] LABS: AST(SGOT) 15 U/L (<=31); Alanine Aminotransfer ALT/SGPT 23 U/L (<=34); Albumin, Serum 3.1 g/dL (3.5-5.0); Alkaline Phosphatase 102 U/L (35-104); Anion Gap 11 (5-15); BUN 29 mg/dL (4-19); BUN/Creat Ratio 19.4 RATIO (10-20); Calcium,Total 8.1 mg/dL (7.6-11.0); Carbon Dioxide 17.0 mmol/L (21.0-32.0); Chloride 106 mmol/L (98-108); Estimated Creatinine Clearance 69.18 ml/min (50-250); Globulin 3.3 g/dL (2.2-4.2); Glucose 195 mg/dL (70-99); Potassium 3.4 mmol/L (3.3-5.1)
[2025-07-06 08:37] LABS: Magnesium 1.9 mg/dL (1.5-2.2)
--- NOTE | 2025-07-06 09:51 | PCM.PN.HOSP ---
Subjective Subjective No major issues overnight, blood sugars appear to be stabilized. Can advance diet and start on subcu insulin Objective Data Objective Data Vital Signs: Vital Signs Temp Pulse Resp BP Pulse Ox O2 Del Method 97.1 F L 70 18 115/53 L 97 Room Air 07/06/25 08:00 07/06/25 08:00 07/06/25 08:00 07/06/25 08:00 07/06/25 09:23 07/06/25 09:23 Oxygen Delivery Method Room Air Weight: 285 lb 11.505 oz Body Mass Index (BMI) 44.8 Intake & Output: Intake and Output for Last 24 Hours 07/05/25 07/06/25 07/07/25 03:59 03:59 03:59 Intake Total 1547.51 / 1547.51 1026.41 / 1026.41 Output Total 0 / 0 Balance 1547.51 / 1547.51 1026.41 / 1026.41 Lab / Micro Data 07/06/25 06:05 07/06/25 06:05 Labs: Laboratory Results - last 24 hr 07/05/25 17:40: POC Glucose 459 H* 07/05/25 17:48: WBC 6.9, RBC 2.94 L, Hgb 9.5 L, Hct 28.2 L, MCV 95.9, MCH 32.3 H, MCHC 33.7, RDW Std Deviation 48.8 H, RDW Coeff of Itzel 13.8, Plt Count 136 L, MPV 10.4, Immature Gran % (Auto) 0.900, Neut % (Auto) 77.6 H, Lymph % (Auto) 14.4 L, [place] % (Auto) 5.8, Eos % (Auto) 0.9, Baso % (Auto) 0.4, Absolute Neuts (auto) 5.3, Absolute Lymphs (auto) 0.99, Nucleated RBC % 0, Sodium 128 L, Potassium 3.8, Chloride 98, Carbon Dioxide 15.0 L, Anion Gap 15, BUN 41 H, Creatinine 1.98 H, Estim Creat Clear Calc 51.75, Est GFR (MDRD) Non-Af 32 L, BUN/Creatinine Ratio 20.7 H, Glucose 533 H*, Lactic Acid 2.2 H*, Calcium 8.3, Phosphorus 3.0, Magnesium 2.2, Total Bilirubin 0.57, AST 19, ALT 26, Alkaline Phosphatase 183 H, Total Protein 7.1, Albumin 3.3 L, Globulin 3.7, Albumin/Globulin Ratio 0.9, b-Hydroxybutyric mmol/L 0.1 07/05/25 18:02: Urine Color Straw, Urine Clarity Sl. Cloudy, Urine pH 6.0, Ur Specific [place] 1.010, Urine Protein 30 H, Urine Glucose (UA) 1000 H, Urine Ketones Negative, Urine Occult Blood 150 H, Urine Nitrite Negative, Urine Bilirubin Negative, Urine Urobilinogen Normal, Ur Leukocyte Esterase 100 H, Urine RBC 5-10 SEEN, Urine WBC 10-25 SEEN, Ur Squamous Epith Cells 5-10 SEEN, Urine Bacteria 3+, Urine Mucus 0 SEEN 07/05/25 20:26: POC Glucose 369 H 07/05/25 20:45: Sodium 130 L 07/05/25 20:45: Sodium 130 L, Potassium 3.6 07/05/25 20:45: Potassium 3.6, Chloride 101 07/05/25 20:45: Chloride 101, Carbon Dioxide 17.3 L 07/05/25 20:45: Carbon Dioxide 15.9 L, Anion Gap 11 07/05/25 20:45: Anion Gap 13, Serum Osmolality 307 H, Iron 12 L, TIBC 166 L, Iron Saturation 7.2 L, Unsaturated IBC 154 L, Ferritin 601 H 07/05/25 21:35: POC Glucose 321 H 07/05/25 22:38: POC Glucose 265 H 07/05/25 22:40: Lactic Acid 1.5 07/05/25 23:54: POC Glucose 211 H 07/06/25 00:52: POC Glucose 165 H 07/06/25 02:05: Sodium 133, Potassium 3.4, Chloride 104, Carbon Dioxide 17.4 L, Anion Gap 12 07/06/25 02:06: POC Glucose 164 H 07/06/25 03:07: POC Glucose 156 H 07/06/25 04:11: POC Glucose 187 H 07/06/25 05:07: POC Glucose 168 H 07/06/25 06:05: WBC 6.4, RBC 2.63 L, Hgb 8.7 L, Hct 25.4 L, MCV 96.6, MCH 33.1 H, MCHC 34.3, RDW Std Deviation 49.3 H, RDW Coeff of Itzel 13.9, Plt Count 145 L, MPV 9.9, Immature Gran % (Auto) 1.400 H, Neut % (Auto) 73.6 H, Lymph % (Auto) 16.7 L, [place] % (Auto) 6.6, Eos % (Auto) 1.4, Baso % (Auto) 0.3, Absolute Neuts (auto) 4.7, Absolute Lymphs (auto) 1.07, Nucleated RBC % 0, Sodium Cancelled 07/06/25 06:05: Sodium 134 07/06/25 06:05: Sodium Cancelled, Potassium Cancelled 07/06/25 06:05: Potassium 3.4 07/06/25 06:05: Potassium Cancelled, Chloride Cancelled 07/06/25 06:05: Chloride 106 07/06/25 06:05: Chloride Cancelled, Carbon Dioxide Cancelled 07/06/25 06:05: Carbon Dioxide 17.0 L 07/06/25 06:05: Carbon Dioxide Cancelled, Anion Gap Cancelled 07/06/25 06:05: Anion Gap 11 07/06/25 06:05: Anion Gap Cancelled, BUN 29 H, Creatinine 1.47 H, Estim Creat Clear Calc 69.18, Est GFR (MDRD) Non-Af 45 L, BUN/Creatinine Ratio 19.4, Glucose 195 H, Hemoglobin A1c 7.6 H, Calcium 8.1, Phosphorus 2.4 L, Magnesium 1.9, Total Bilirubin 0.41, AST 15, ALT 23, Alkaline Phosphatase 102, Total Protein 6.4, Albumin 3.1 L, Globulin 3.3, Albumin/Globulin Ratio 1.0, POC Glucose 186 H 07/06/25 06:58: POC Glucose 176 H 07/06/25 08:07: POC Glucose 169 H 07/06/25 09:03: POC Glucose 160 H Micro: Microbiology 07/05/25 18:02 Urine, Clean Catch Urine Culture - Preliminary Gram negative becki 07/06/25 00:10 Nasal Secretion MRSA (PCR) - Final ABG Data ABG results: ABG 07/05/25 17:55 Specimen Type SHIRA Sample Site Not entered VBG pH 7.32 VBG pO2 77 H VBG HCO3 16 L VBG Total CO2 17 L VBG O2 Sat (Calc) 94 H VBG Base Excess -10 L POC Mix VBG pCO2 Pt Tmp 31.6 L O2 Delivery Device Not entered Radiography Diagnostic Testing: Radiology Impression Chest X-Ray 07/05/25 18:27 IMPRESSION: Cardiomegaly with mild vascular congestion. No airspace consolidation or sizable pleural effusion. Reading Location: [id number] Abdomen/Pelvis CT 07/05/25 22:18 IMPRESSION: 1. A 10 mm stone at the left UPJ resulting in mild left hydronephrosis. 2. Mildly prominent reactive left para-aortic lymph nodes. Reading [id number] Physical Exam Narrative General: Alert, Oriented x3, Cooperative, No apparent distress HEENT: Atraumatic, PERRLA, EOMI, Normocephalic Oral: Moist Mucosa Neck: Supple, No JVD Lungs: Diminished, Normal air movement, No rhonchi, No wheeze, No rales Cardiovascular: Regular rate, Regular Rhythm, Normal S1, Normal S2, No murmurs Abdomen: Soft, Non Tender, Non-Distended, No Hepato-splenomegaly Extremities: No edema, Capillary Refill Less than 3 Seconds Skin: No rashes, No breakdown Musculoskeletal: Left shoulder is in a sling Neurological: No focal neurological deficits, Motor Exam 5/5 strength throughout, Sensory exam intact to light touch and pain Psych/Mental Status: Normal Affect, Appropriate Assessment & Plan Assessment/Plan (1) Sepsis: (2) Complicated urinary tract infection: PLAN: Plan 1. HHS in the setting of type 2 diabetes ? Will transition to sliding scale insulin ? Accu-Cheks ? Advance diet and continue to monitor ? This may have been precipitated by the UTI 2. Sepsis secondary to UTI with JOHN ? She met sepsis criteria secondary to lactic acid greater than 2 and bicarb less than 20 ? Continue with antibiotics ? Cultures are pending ? Baseline creatinine is around 0.8 and her creatinine on admission was 1.98, it is improving we will continue to monitor 3. Acute on chronic anemia/thrombocytopenia ? Thrombocytopenia likely reactive to the sepsis ? However the iron studies show an anemia of chronic disease or anemia of inflammation ? Will await fecal occult 4. Essential HTN ? Will hold her home blood pressure medications ? Will monitor make adjustments as necessary 5. Anxiety/depression ? Stable ? Continue with her home medications 6. GERD ? Stable ? Continue with PPI DVT: SCDs Charges/Coding Visit Charges Inpatient E&M: 54499 Subs Hosp L2
--- NOTE | 2025-07-06 11:03 | CASEMGMT ---
PEPE GRAFF Assessment Face to Face with patient for initial transition planning/care coordination assessment. PEPE GRAFF introduced self and role at [facility], pt voices understanding. Pt is A&Ox4 and is resting comfortably in bed and is calm. Care providers, pharmacy, and demographics verified. Admitting dx: HHS, UTI, JOHN, Acute on Chronic Anemia LACE Strata: 2 PCP: Zeferino Leon Specialists: Junaid (ortho). Pt recently had ortho surgery (Lt Shoulder) on 06/23, see H&P. Preferred Pharmacy: [facility] Insurance: [facility] [employer] Prescription Benefit: Yes LNOK: Elizabeth (Daughter), Bryson Carlson (SO) Living Arrangements: Pt lives with her daughter in a 2 story apartment with one step to enter ADLs/IADLs: Indep Transportation: Pt states that she does not drive. Pt reports that her SO and daughter drive her DME: BiPAP @ HS with no additional oxygen. Pt states that she has a functioning BGM with sufficient supplies including lancets, test strips, and EtOH swabs. Pt denies needs or concerns. Pt also states that she has a BP Machine and pulse ox. Pt states that she has an [employer] Watch for medical alert system, HR, and oxygen monitoring. HHC/SNF: Denies hx or needs Pt?s goal: Home Plan: Home with pt's daughter once medically ready, anticipate no additional needs. 6-Click score is 24. Pt denies the need for any additional therapy or resources. Pt states that she feels safe returning home with her daughter at the time of DC and denies further questions or concerns at this time. Ivan Jacobs RN, CM
--- NOTE | 2025-07-06 14:47 | CHAPLAIN ---
Type of Pastoral Visit _x__ Initial Visit ___ Follow-up Visit ___ On-call Visit ___ General Patient Visit ___ Spiritual Assessment ___ Family Conference ___ Bereavement ___ Rapid Response ___ Code Blue ___ Other (describe below) Pastoral Care Referral From _x__ Patient ___ Family ___ Nurse ___ Physician ___ Accordion Repairer ___ Chief Radiation Therapist ___ Other (describe below) Sacrament/Intervention _x__ Active listening ___ Anointing ___ Yazidism ___ Bereavement ___ Communion ___ Beata exploration ___ ___ Life review _x__ Prayer ___ Reconciliation ___ Sacrament of Sick _x__ Supportive presence ___ Wedding ___ Other (describe below) Pastoral Comments
[2025-07-06] MEDS: Ceftriaxone 2 GM in 0.9% Normal Saline (50mL MB+) 50 ML IV (21:18)
[2025-07-06] MEDS: 0.9% Normal Saline (250mL Bag) 250 ML 15 ML IV (21:19)
[2025-07-07] VITALS (8 sets, daily range): BP systolic 91–121; BP diastolic 47–74; PULSE 58–68; RESP 10–18; TEMP 36.4–36.7; O2SAT 96–99; BMI 44.1
[2025-07-07 05:42] LABS: Hematocrit 27.7 % (37-47); Hemoglobin 9.5 g/dL (12.0-15.0); Mean Corp Hgb Conc 34.3 g/dL (32-36); Mean Corpuscular Volume 96.9 fL (81-99); Mean Platelet Vol. 9.4 fl (6.2-12.0); POSITIVE COUNT YES; POSITIVE MORPHOLOGY YES; Platelet Count 187 K/mm3 (150-450); RBC Distribution Width CV 14.1 % (11.6-14.6); RBC Distribution Width SD 50.4 fl (35.1-43.9); Red Blood Count 2.86 M/mm3 (4.2-5.4); White Blood Count 6.2 K/mm3 (4.4-11.0)
[2025-07-07 05:52] LABS: Differential Indicated MANUAL DIFF
[2025-07-07 06:30] LABS: Anion Gap 12 (5-15); BUN 19 mg/dL (4-19); BUN/Creat Ratio 16.6 RATIO (10-20); Calcium,Total 8.8 mg/dL (7.6-11.0); Carbon Dioxide 18.4 mmol/L (21.0-32.0); Chloride 105 mmol/L (98-108); Estimated Creatinine Clearance 88.48 ml/min (50-250); Glucose 223 mg/dL (70-99); Potassium 3.5 mmol/L (3.3-5.1)
--- NOTE | 2025-07-07 07:19 | PN.HOSP_ITS ---
Reason for Visit Chief Complaint: Altered mentation, elevated BS, dark urine, suprapubic discomfort, polydipsia. Subjective Subjective Patient is a 45-year-old lady who presented to the emergency department with some confusion was found to have hyperosmolar nonketotic state as well as sepsis secondary to UTI in addition to acute kidney injury admitted to the intensive care unit for further management Objective Data Objective Data Vital Signs: Vital Signs Temp Pulse Resp BP Pulse Ox O2 Del Method 98.1 F 61 18 117/74 96 Room Air 07/07/25 04:00 07/07/25 06:00 07/07/25 06:00 07/07/25 06:00 07/07/25 07:15 07/07/25 07:15 Oxygen Delivery Method Room Air Weight: 127.8 kg Body Mass Index (BMI) 44.1 Intake & Output: Intake and Output for Last 24 Hours 07/05/25 07/06/25 07/07/25 23:59 23:59 23:59 Intake Total 2074.75 / 2074.75 2826.87 / 2826.87 Output Total 0 / 0 Balance 2074.75 / 2074.75 2826.87 / 2826.87 Lab / Micro Data 07/07/25 05:26 07/07/25 05:26 Labs: Laboratory Results - last 24 hr 07/06/25 03:07: POC Glucose 156 H 07/06/25 04:11: POC Glucose 187 H 07/06/25 05:07: POC Glucose 168 H 07/06/25 06:05: Sodium Cancelled, Potassium Cancelled, Chloride Cancelled, Carbon Dioxide Cancelled, Anion Gap Cancelled, Hemoglobin A1c 7.6 H, Magnesium 1.9, POC Glucose 186 H 07/06/25 06:58: POC Glucose 176 H 07/06/25 08:07: POC Glucose 169 H 07/06/25 09:03: POC Glucose 160 H 07/06/25 10:12: POC Glucose 138 H 07/06/25 11:31: POC Glucose 144 H 07/06/25 16:54: POC Glucose 181 H 07/06/25 21:17: POC Glucose 165 H 07/07/25 05:26: WBC 6.2, RBC 2.86 L, Hgb 9.5 L, Hct 27.7 L, MCV 96.9, MCH 33.2 H , MCHC 34.3, RDW Std Deviation 50.4 H, RDW Coeff of Itzel 14.1, Plt Count 187, MPV 9.4, Neut % (Auto) Not Reportable, Sodium 136, Potassium 3.5, Chloride 105, C arbon Dioxide 18.4 L, Anion Gap 12, BUN 19, Creatinine 1.14, Estim Creat Clear Calc 88.48, Est GFR (MDRD) Non-Af 61, BUN/Creatinine Ratio 16.6, Glucose 223 H, Calcium 8.8 Micro: Microbiology 07/06/25 12:55 Stool Stool Occult Blood (TAMEKA) - Final 07/05/25 18:02 Urine, Clean Catch Urine Culture - Preliminary Gram negative becki 07/06/25 00:10 Nasal Secretion MRSA (PCR) - Final Physical Exam Narrative GENERAL: cooperative HEENT: Atraumatic; normocephalic EYES; Anicteric, Normal Conjunctiva NECK; supple, normal thyroid, RESPIRATORY: Diminished to auscultation CARDIOVASCULAR: Regular S1 S2, GI: soft, normoactive bowel sounds, : No Renal angle tenderness; EXTREMITIES: No edema, no clubbing, MUSCULOSKELETAL: no muscle wasting NEURO: Awake; no lateralizing signs. SKIN: No Rash PSYCH; Flat affect Assessment & Plan Assessment/Plan (1) Sepsis: (2) Complicated urinary tract infection: PLAN: Plan Patient is a 45-year-old lady who presented to the emergency department with some confusion was found to have hyperosmolar nonketotic state as well as sepsis secondary to UTI in addition to acute kidney injury admitted to the intensive care unit for further management 1. Acute metabolic encephalopathy ? Due to combination of hyperosmolar nonketotic state, sepsis secondary to UTI as well as acute kidney injury admitted to intensive care unit for further management 2. Hyperosmolar nonketotic state ? Patient was managed with insulin as well as IV fluid 3. Sepsis secondary to acute cystitis with E. coli ? Patient was managed per protocol with IV fluid broad-spectrum antibiotic therapy and cultures and cultures came back positive for E. coli 4. Acute kidney injury ? Secondary to hypovolemia patient was resuscitated with IV fluid patient creatinine had improved 5. Thrombocytopenia ? Secondary to sepsis platelet count had normalized at the time of discharge 6. Anemia The second is anemia of chronic disorder monitor H&H 7. Class II obesity with BMI of 44.1 As complicating care weight loss advised 8. Essential hypertension ? Patient was post on lisinopril which was held during her admission and resumed on discharge 8. GERD ? On PPI 9. Chronic migraines ? Patient is on Rimegepant as needed at home 10. Obstructive sleep apnea ? Consistent use of PAP therapy encouraged 11. Left shoulder impingement syndrome anxiety is ? Patient underwent Left shoulder arthroscopy, subacromial decompression, debridement on 06/23/2025. Left shoulder immobilized 12. DVT prophylaxis Has bilateral SCDs Charges/Coding Visit Charges Inpatient E&M: 44662 Subs Hosp L2
--- NOTE | 2025-07-07 08:16 | PCM.DC.SUM ---
Providers Date of Admission: 07/05/25 Date of Discharge: 07/07/25 Primary Care Physician: Dr. Zeferino Leon MD Consultations 07/05/25 23:32 Consult: Building Service Worker / Pulmonary Medicine Routine Consulting Provider: Intensivists/Pulmonary Med Reason for Consult: HHS, Complicated UTI, JOHN EMERGENT Consult: No MD Notified: Yes Date Notified: 07/05/25 Time Notified: 21:51 Method of Notification: Text Reason For Visit: HHS, 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, JOHN, ACUTE ON CHRONIC ANEMIA Diagnosis Discharge Diagnosis (1) Sepsis: Status: Acute Code(s): A41.9 - Sepsis, unspecified organism (2) Complicated urinary tract infection: Status: Acute Code(s): N39.0 - Urinary tract infection, site not specified Plan Patient is a 45-year-old lady who presented to the emergency department with some confusion was found to have hyperosmolar nonketotic state as well as sepsis secondary to UTI in addition to acute kidney injury admitted to the intensive care unit for further management 1. Acute metabolic encephalopathy ? Due to combination of hyperosmolar nonketotic state, sepsis secondary to UTI as well as acute kidney injury admitted to intensive care unit for further management 2. Hyperosmolar nonketotic state ? Patient was managed with insulin as well as IV fluid 3. Sepsis secondary to acute cystitis with E. coli ? Patient was managed per protocol with IV fluid broad-spectrum antibiotic therapy and cultures and cultures came back positive for E. coli 4. Acute kidney injury ? Secondary to hypovolemia patient was resuscitated with IV fluid patient creatinine had improved 5. Thrombocytopenia ? Secondary to sepsis platelet count had normalized at the time of discharge 6. Anemia The second is anemia of chronic disorder monitor H&H 7. Class II obesity with BMI of 44.1 As complicating care weight loss advised 8. Essential hypertension ? Patient was post on lisinopril which was held during her admission and resumed on discharge 8. GERD ? On PPI 9. Chronic migraines ? Patient is on Rimegepant as needed at home 10. Obstructive sleep apnea ? Consistent use of PAP therapy encouraged 11. Left shoulder impingement syndrome anxiety is ? Patient underwent Left shoulder arthroscopy, subacromial decompression, debridement on 06/23/2025. Left shoulder immobilized 12. DVT prophylaxis Has bilateral SCDs Medications at Discharge Home Medications blood sugar diagnostic (Blood Glucose Test strips) #10 ea 04/26/20 ipratropium bromide 21 mcg (0.03 %) nasal spray 2 spray intranasal BID PRN allergies 08/23/20 albuterol sulfate 90 mcg/actuation aerosol inhaler 2 puff inhalation Q4H PRN shortness of breath or wheezing 08/10/22 fexofenadine 180 mg tablet (Allergy Relief (fexofenadine)) 180 mg PO DAILY allergies 08/10/22 levonorgestrel 17.5 mcg/24 hr (up to 5 yrs) 19.5mg intrauterine device 1 device intrauterine ONCE control 08/10/22 tizanidine 4 mg tablet 4 mg PO Q8H PRN Muscle Spasm 08/10/22 omeprazole 20 mg capsule,delayed release 20 mg PO DAILY PRN gerd 08/16/22 topiramate 100 mg tablet 100 mg PO BID seizures 08/16/22 fluoxetine 20 mg capsule 20 mg PO QHS mental health 12/28/22 gabapentin 300 mg capsule 300 mg PO QHS nerve pain 12/28/22 lisinopril 10 mg tablet 10 mg PO DAILY blood pressure 12/28/22 ondansetron HCl 4 mg tablet 4 mg PO Q8H PRN nausea 12/28/22 rimegepant 75 mg disintegrating tablet (Nurtec ODT) 75 mg PO DAILY PRN migraine headache 02/04/24 semaglutide 2 mg/dose (8 mg/3 mL) subcutaneous pen injector (Ozempic) 2 mg subcut QWEEK 07/05/25 BIPAP -Bilevel Positive Airway Pressure ([facility] INFORMATIONAL USE ONLY) 07/06/25 CPAP - Continuous Positive Airway Pressure([facility] INFORMATIONAL USE ONLY) 07/06/25 cefdinir 300 mg capsule 300 mg PO BID 7 days #14 caps 07/07/25 insulin glargine 100 unit/mL (3 mL) subcutaneous pen (Lantus Solostar U-100 Insulin) 10 unit (0.1 mL) subcut QPM #15 mL 07/07/25 pen needle, diabetic 31 gauge x 5/32 #100 ea 07/07/25 Hospital Course Summary of Care Provided Minutes Spent on Discharge: 32 Physical Exam Narrative GENERAL: cooperative HEENT: Atraumatic; normocephalic EYES; Anicteric, Normal Conjunctiva NECK; supple, normal thyroid, RESPIRATORY: Diminished to auscultation CARDIOVASCULAR: Regular S1 S2, GI: soft, normoactive bowel sounds, : No Renal angle tenderness; EXTREMITIES: No edema, no clubbing, MUSCULOSKELETAL: Left shoulder immobilized NEURO: Awake; no lateralizing signs. SKIN: No Rash PSYCH; Flat affect Weight / BMI Weight Weight: 127.8 kg Body Mass Index (BMI) 44.1 ABG / Lab / Microbiology Data 07/07/25 05:26 07/07/25 05:26 Laboratory: Laboratory Results - last 24 hr 07/06/25 03:07: POC Glucose 156 H 07/06/25 04:11: POC Glucose 187 H 07/06/25 05:07: POC Glucose 168 H 07/06/25 06:05: Magnesium 1.9, POC Glucose 186 H 07/06/25 06:58: POC Glucose 176 H 07/06/25 08:07: POC Glucose 169 H 07/06/25 09:03: POC Glucose 160 H 07/06/25 10:12: POC Glucose 138 H 07/06/25 11:31: POC Glucose 144 H 07/06/25 16:54: POC Glucose 181 H 07/06/25 21:17: POC Glucose 165 H 07/07/25 05:26: WBC 6.2, RBC 2.86 L, Hgb 9.5 L, Hct 27.7 L, MCV 96.9, MCH 33.2 H, MCHC 34.3, RDW Std Deviation 50.4 H, RDW Coeff of Itzel 14.1, Plt Count 187, MPV 9.4, Neut % (Auto) Not Reportable, Sodium 136, Potassium 3.5, Chloride 105, Carbon Dioxide 18.4 L, Anion Gap 12, BUN 19, Creatinine 1.14, Estim Creat Clear Calc 88.48, Est GFR (MDRD) Non-Af 61, BUN/Creatinine Ratio 16.6, Glucose 223 H, Calcium 8.8 Microbiology: Microbiology 07/05/25 18:02 Urine, Clean Catch Urine Culture - Final Escherichia coli 07/06/25 12:55 Stool Stool Occult Blood (TAMEKA) - Final 07/06/25 00:10 Nasal Secretion MRSA (PCR) - Final D/C Instructions Discharge Activity: Return to Normal Activity Call your doctor if you observe: Fever of 101 or Higher, Shortness of breath, Fainting spells and Chest pain DC O2, CPAP, BIPAP Needs Home O2 Discharge instructions: No Meaningful Use Info Meaningful Use Meaningful Use Diagnoses (Choose all that apply): None applicable Discharge Plan Admission Admit Date/Time: 07/05/25 21:46 Attending Provider: Zafar Harrison Primary Care Provider: Zeefrino Leon Consulting Providers: Shana Mendoza; Jose Juan Reinoso Discharge Orders/Prescriptions Prescriptions: New cefdinir 300 mg capsule 300 mg PO BID 7 Days Qty: 14 0RF insulin glargine [Lantus Solostar U-100 Insulin] 100 unit/mL (3 mL) insulin pen 10 unit subcut QPM Qty: 15 0RF (DME) pen needle, diabetic 31 gauge x 5/32 needle See Rx Instructions .ROUTE .MEDSUPPLY Qty: 100 0RF Rx Instructions: As directed Continued (DME) blood sugar diagnostic [Blood Glucose Test] Strip See Rx Instructions .ROUTE .MEDSUPPLY Qty: 10 Rx Instructions: As directed ipratropium bromide 0.03 % spray,non-aerosol 2 spray INTRANASAL BID PRN (Reason: allergies) Rx Instructions: administer into each nostril fexofenadine [Allergy Relief (fexofenadine)] 180 mg tablet 180 mg PO DAILY levonorgestrel 17.5 mcg/24 hrs (5 yrs) 19.5 mg intrauterine device 1 device intrauterine ONCE Rx Instructions: as a single dose omeprazole 20 mg capsule,delayed release(DR/EC) 20 mg PO DAILY PRN (Reason: gerd) Patient Comments: Take 1 capsule by mouthndaily before breakfast. 1/2 hr before meal. topiramate 100 mg tablet 100 mg PO BID Patient Comments: Take 1 tablet by mouthitwice daily. gabapentin 300 mg capsule 300 mg PO QHS lisinopril 10 mg tablet 10 mg PO DAILY Patient Comments: Take 1 tablet by mouthEonce daily. ondansetron HCl 4 mg tablet 4 mg PO Q8H PRN (Reason: nausea) Patient Comments: TAKE 1 TABLET BY MOUTHEEVERY 8 HOURS NEEDED FOR NAUSEA OR VOMITING fluoxetine 20 mg capsule 20 mg PO QHS Patient Comments: Take 1 capsule by mouthConce daily. albuterol sulfate 90 mcg/actuation HFA aerosol inhaler 2 puff INHALATION Q4H PRN (Reason: shortness of breath or wheezing) tizanidine 4 mg tablet 4 mg PO Q8H PRN (Reason: Muscle Spasm) Ozempic 2 mg/dose (8 mg/3 mL) pen injector 2 mg subcut QWEEK (DME) BIPAP -Bilevel Positive Airway Pressure ([facility] INFORMATIONAL USE ONLY) Device See Rx Instructions .ROUTE Patient Comments: VAuto: IPAP=19.2 EPAP=12.4 PS=6.8 Rx Instructions: As directed (DME) CPAP - Continuous Positive Airway Pressure([facility] INFORMATIONAL USE ONLY) Device See Rx Instructions .ROUTE Patient Comments: pt has her home unit at bedside, does not know her settings. Rx Instructions: As directed Nurtec ODT 75 mg tablet,disintegrating 75 mg PO DAILY PRN (Reason: migraine headache) Referrals / Follow Up: Zeferino Leon MD [Primary Care Provider] - In 1 Week Disposition Disposition (needs filled in before D/C Order can be placed): Home, Self Care Charges/Coding Visit Charges Inpatient E&M: 51694 Disch Hosp >30min
[2025-07-07 09:18] LABS: Neutrophil-Band 3 % (0-5); Neutrophil-Segmented 60 % (47-70); Red Cell Morphology NORM C+C NORMAL (NORM C&C); Total Cells Counted 100 (MANUAL DIFF)
--- NOTE | 2025-07-07 10:22 | PHA.DC.MR.R ---
Pharmacy [place] Med Reconciliation Pharmacy Service has performed discharge medication reconciliation for this patient. Medication education papers prepared, patient discharged during chart review. Medications reviewed. The patient's discharge medication list was reviewed for discrepancies and discrepancies were resolved. Medications at Discharge Home Medications blood sugar diagnostic (Blood Glucose Test strips) #10 ea 04/26/20 ipratropium bromide 21 mcg (0.03 %) nasal spray 2 spray intranasal BID PRN allergies 08/23/20 albuterol sulfate 90 mcg/actuation aerosol inhaler 2 puff inhalation Q4H PRN shortness of breath or wheezing 08/10/22 fexofenadine 180 mg tablet (Allergy Relief (fexofenadine)) 180 mg PO DAILY allergies 08/10/22 levonorgestrel 17.5 mcg/24 hr (up to 5 yrs) 19.5mg intrauterine device 1 device intrauterine ONCE control 08/10/22 tizanidine 4 mg tablet 4 mg PO Q8H PRN Muscle Spasm 08/10/22 omeprazole 20 mg capsule,delayed release 20 mg PO DAILY PRN gerd 08/16/22 topiramate 100 mg tablet 100 mg PO BID seizures 08/16/22 fluoxetine 20 mg capsule 20 mg PO QHS mental health 12/28/22 gabapentin 300 mg capsule 300 mg PO QHS nerve pain 12/28/22 lisinopril 10 mg tablet 10 mg PO DAILY blood pressure 12/28/22 ondansetron HCl 4 mg tablet 4 mg PO Q8H PRN nausea 12/28/22 rimegepant 75 mg disintegrating tablet (Nurtec ODT) 75 mg PO DAILY PRN migraine headache 02/04/24 semaglutide 2 mg/dose (8 mg/3 mL) subcutaneous pen injector (Ozempic) 2 mg subcut QWEEK 07/05/25 BIPAP -Bilevel Positive Airway Pressure ([facility] INFORMATIONAL USE ONLY) 07/06/25 CPAP - Continuous Positive Airway Pressure([facility] INFORMATIONAL USE ONLY) 07/06/25 cefdinir 300 mg capsule 300 mg PO BID 7 days #14 caps 07/07/25 insulin glargine 100 unit/mL (3 mL) subcutaneous pen (Lantus Solostar U-100 Insulin) 10 unit (0.1 mL) subcut QPM #15 mL 07/07/25 pen needle, diabetic 31 gauge x 5/32 #100 ea 07/07/25
== END 2025-07-07 10:15 | disposition home or self-care (01) | DRG 871 ==
LOC: ED 20:55 → ICU 22:37
PROVIDERS: Family Medicine; Admitting Provider Family Medicine; Emergency Provider Emergency Medicine; PCP Family Medicine; Visit Provider Internal Medicine
DX: A41.9 Sepsis, unspecified organism (principal); G93.41 Metabolic encephalopathy; E11.01 Type 2 diabetes mellitus with hyperosmolarity with coma; E87.20 Acidosis, unspecified; Z68.42 Body mass index [BMI] 45.0-49.9, adult; E87.1 Hypo-osmolality and hyponatremia; N17.9 Acute kidney failure, unspecified; N30.00 Acute cystitis without hematuria; D63.8 Anemia in other chronic diseases classified elsewhere; E11.65 Type 2 diabetes mellitus with hyperglycemia; I12.9 Hypertensive chronic kidney disease with stage 1 through stage 4 chronic kidney disease, or unspecified chronic kidney disease; F32.A Depression, unspecified; D69.6 Thrombocytopenia, unspecified; E86.0 Dehydration; E11.22 Type 2 diabetes mellitus with diabetic chronic kidney disease; E66.01 Morbid (severe) obesity due to excess calories; G47.33 Obstructive sleep apnea (adult) (pediatric); M75.50 Bursitis of unspecified shoulder; N18.2 Chronic kidney disease, stage 2 (mild); F41.9 Anxiety disorder, unspecified; E11.42 Type 2 diabetes mellitus with diabetic polyneuropathy; K21.9 Gastro-esophageal reflux disease without esophagitis; E78.00 Pure hypercholesterolemia, unspecified; G43.709 Chronic migraine without aura, not intractable, without status migrainosus; E86.1 Hypovolemia; M75.42 Impingement syndrome of left shoulder; Z83.3 Family history of diabetes mellitus; Z79.85 Long-term (current) use of injectable non-insulin antidiabetic drugs; E66.812 Obesity, class 2; Z99.89 Dependence on other enabling machines and devices; Z90.49 Acquired absence of other specified parts of digestive tract; B96.20 Unspecified Escherichia coli [E. coli] as the cause of diseases classified elsewhere
CPT/HCPCS: 71046; 74176; 80048; 80051; 80053; 81001; 82010; 82274; 82728; 82803; 82962; 83036; 83540; 83550; 83605; 83735; 83930; 84100; 85025; 87040; 87077; 87086; 87088; 87186; 87641; 93005; 94668; 94762; 97802; 99285; A4216; J0696

== ENCOUNTER → 2025-07-23 | Outpatient (CLI) | payer OTHER, SELFPAY ==
[2025-07-23 09:32] LABS: Hematocrit 38.1 % (37-47); Hemoglobin 12.7 g/dL (12.0-15.0); Immature Granulocytes Count 0.090 X10^3/uL (0.0-0.0); Mean Corp Hgb Conc 33.3 g/dL (32-36); Mean Corpuscular Volume 94.5 fL (81-99); Mean Platelet Vol. 9.3 fl (6.2-12.0); NRBC Flagged by Analyzer 0 % (0-5); Platelet Count 240 K/mm3 (150-450); RBC Distribution Width CV 13.2 % (11.6-14.6); RBC Distribution Width SD 45.7 fl (35.1-43.9); Red Blood Count 4.03 M/mm3 (4.2-5.4); White Blood Count 8.3 K/mm3 (4.4-11.0)
[2025-07-23 10:22] LABS: Anion Gap 14 (5-15); BUN 13 mg/dL (4-19); BUN/Creat Ratio 14.1 RATIO (10-20); Calcium,Total 8.9 mg/dL (7.6-11.0); Carbon Dioxide 18.9 mmol/L (21.0-32.0); Chloride 104 mmol/L (98-108); FOLATES,SERUM (FOLIC ACID) 12.60 ng/mL (4.60-34.80); Ferritin 291 ng/mL (22-378); Glucose 145 mg/dL (70-99); Iron 70 ug/dL (50-170); Iron Binding Capacity,Total 261 ug/dL (250-450); Iron Binding Capacity,Unsat 191 ug/dL (228-428); Potassium 3.9 mmol/L (3.3-5.1); Vitamin B12 679 pg/mL (180-914)
== END | disposition home or self-care (01) ==
LOC: LAB 08:26
PROVIDERS: PCP Family Medicine; Referring Provider Family Medicine; Visit Provider Family Medicine
DX: D64.9 Anemia, unspecified (principal)
CPT/HCPCS: 36415; 80048; 82607; 82728; 82746; 83540; 83550; 85025

== ENCOUNTER → 2025-08-11 | Outpatient (CLI) | payer OTHER, SELFPAY ==
[2025-08-11 10:39] LABS: Mucous, Urine 0 SEEN /hpf (<or=2+)
[2025-08-11 11:10] LABS: Hematocrit 39.7 % (37-47); Hemoglobin 13.3 g/dL (12.0-15.0); Immature Granulocytes Count 0.130 X10^3/uL (0.0-0.0); Mean Corp Hgb Conc 33.5 g/dL (32-36); Mean Corpuscular Volume 91.7 fL (81-99); Mean Platelet Vol. 9.3 fl (6.2-12.0); NRBC Flagged by Analyzer 0 % (0-5); Platelet Count 219 K/mm3 (150-450); RBC Distribution Width CV 13.7 % (11.6-14.6); RBC Distribution Width SD 46.5 fl (35.1-43.9); Red Blood Count 4.33 M/mm3 (4.2-5.4); White Blood Count 10.0 K/mm3 (4.4-11.0)
[2025-08-11 11:21] LABS: Color, Urine Yellow (Yellow); Glucose, Dipstick Normal (Normal); Ketone-Dipstick Negative (Negative); Leukocyte Esterase-Dipstick 500 /ul (Negative); Nitrite-Dipstick Negative (Negative); Occult Blood-Urine 10 /ul (Negative); Protein-Dipstick 30 mg/dl (Negative); Specific Gravity, Urine 1.010 (1.002-1.030); Urine Bilirubin Dipstick Negative (Negative)
[2025-08-11 11:33] LABS: Squamous Epithelial Cells - UA 10-25 SEEN /hpf (5-10)
[2025-08-11 11:34] LABS: Red Blood Cells-Urine 0-5 SEEN /hpf (0-5)
== END | disposition home or self-care (01) ==
LOC: LAB 10:34
PROVIDERS: PCP Family Medicine; Referring Provider Family Medicine; Visit Provider Family Medicine
DX: N39.0 Urinary tract infection, site not specified (principal); E11.29 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 kidney complication; Z79.4 Long term (current) use of insulin; Z86.2 Personal history of diseases of the blood and blood-forming organs and certain disorders involving the immune mechanism; R80.9 Proteinuria, unspecified
CPT/HCPCS: 36415; 81001; 83036; 85025; 87077; 87086; 87088; 87186

== ENCOUNTER 2025-09-16 06:57 | Day surgery (SDC) | payer OTHER, SELFPAY ==
--- NOTE | 2025-09-10 14:38 | PAT.ANESEVAL ---
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 When Was Last Pacemaker Check QUESTION #4 FULL TEXT: You/Your Family Experience fever (hyperthermia) with Anesthesia Last Oral Intake Last Oral intake: Last Oral Intake NPO since Meds taken in AM with sips of water? Meds patient instructed to take am of surgery PONV PONV - e mail system administrator: PONV - e mail system administrator Female Yes 09/10/25 10:09 HX of Motion Sickness No 09/10/25 10:09 HX of N/V After Surgery No 09/10/25 10:09 Non-Smoker Yes 09/10/25 10:09 Duration of Surgery greater Yes 09/10/25 10:09 than 60 minutes Number of Risk Factors 3 09/10/25 10:09 PONV Score Moderate Risk 09/10/25 10:09 Height & Weight Height & Weight: Anesthesia: Height & Weight Height 5 ft 7 in 09/02/25 07:51 Respiratory Assessment Respiratory Assessment - e mail system administrator: Respiratory Tract Infection Hx - e mail system administrator Hx Respiratory Tract Infection No 09/10/25 10:09 STOP Sleep Apnea STOP Sleep Apnea - e mail system administrator: STOP Sleep Apnea - e mail system administrator Hx Hypertension Yes 09/10/25 10:09 Hx Sleep Apnea Yes 09/10/25 10:09 CPAP Yes 09/10/25 10:09 BIPAP No 09/10/25 10:09 Do you snore loudly (louder than talking or can be heard Do you often feel tired/ fatigued/ sleepy during daytime? Has anyone observed you stop breathing during sleep? STOP Results Positive 09/10/25 10:09 QUESTION #5 FULL TEXT : Do you snore loudly (louder than talking or can be heard through closed doors)? 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 Specify any problems Hx of Preganancy in last 3 No 09/10/25 10:09 Months Nurse Filling Out Transfusion DSCHRIBER 09/10/25 10:09 & Questions: Date: 09/10/25 09/10/25 10:09 Time: 10:10 09/10/25 10:09 Patient unable to answer at this time (ie. confused, unrespo /Reproduction History /Reproductive History - e mail system administrator: /Reproductive Hx- e mail system administrator Hx Now Gestational Age (in weeks): EDC: Hx Hx Para Hx Section SAB No 09/10/25 10:09 Does the father of the baby or his family experience fever w Father of the baby Malignant Hypertension history comment PFSH Medical History (Updated 09/10/25 @ 10:18 by Alysia Do) Insulin dependent diabetes mellitus Hypertension Depression Fatty liver Gastric reflux BiPAP (biphasic positive airway pressure) dependence Non-smoker History of stress test History of echocardiogram Cardiology follow-up encounter Microalbuminuria Fatty liver Anxiety Migraines Acute bronchitis Home Medications Medication Instructions Recorded Last Taken Type blood sugar diagnostic (Blood #10 ea 04/26/20 Unknown History Glucose Test strips) ipratropium bromide 21 mcg (0.03 2 spray intranasal BID PRN 08/23/20 08/03/23 History %) nasal spray allergies albuterol sulfate 90 mcg/actuation 2 puff inhalation Q4H PRN 08/10/22 08/03/23 History aerosol inhaler shortness of breath or wheezing fexofenadine 180 mg tablet 180 mg PO DAILY allergies 08/10/22 06/22/25 History (Allergy Relief (fexofenadine)) levonorgestrel 17.5 mcg/24 hr (up 1 device intrauterine ONCE 08/10/22 06/23/25 History to 5 yrs) 19.5mg intrauterine control device tizanidine 4 mg tablet 4 mg PO Q8H PRN Muscle Spasm 08/10/22 06/20/25 History omeprazole 20 mg capsule,delayed 20 mg PO DAILY PRN gerd 08/16/22 06/22/25 History release fluoxetine 20 mg capsule 20 mg PO QHS mental health 12/28/22 06/22/25 History gabapentin 300 mg capsule 300 mg PO QHS nerve pain 12/28/22 06/22/25 History lisinopril 10 mg tablet 10 mg PO DAILY blood pressure 12/28/22 06/22/25 History rimegepant 75 mg disintegrating 75 mg PO DAILY PRN migraine 02/04/24 11/10/24 History tablet (Nurtec ODT) headache semaglutide 2 mg/dose (8 mg/3 mL) 2 mg subcut TH 07/05/25 09/07/25 History subcutaneous pen injector (Ozempic) BIPAP -Bilevel Positive Airway 07/06/25 Unknown History Pressure ([facility] INFORMATIONAL USE ONLY) insulin glargine 100 unit/mL (3 10 unit (0.1 mL) subcut QPM #15 mL 07/07/25 Unknown Rx mL) subcutaneous pen (Lantus Solostar U-100 Insulin) pen needle, diabetic 31 gauge x #100 ea 07/07/25 Unknown Rx 5/32" topiramate 50 mg tablet 150 mg PO QHS 08/05/25 Unknown History amoxicillin 500 mg-potassium 1 tab PO BID #14 tabs 09/10/25 Unknown Rx clavulanate 125 mg tablet (Augmentin) Allergy/AdvReac Type Severity Reaction Status Date / Time Corticosteroids Allergy Hives Verified 09/10/25 10:05 (Glucocorticoids) (steroids) lidocaine AdvReac Intermediate Hives Verified 09/10/25 10:05 Family History Father Diabetes Myocardial infarction Pancreatic cancer Mother Alcohol abuse Drug abuse Grandfather Diabetes Grandmother Lung cancer Grandmother Heart disease Triple bypass surgery Surgical History (Updated 09/10/25 @ 10:16 by Alysia Do) Hx of shoulder surgery History of urethral stent (~2018) Hx laparoscopic cholecystectomy (~2005) H/O: (~2005) Social History household members: none Smoking Status: Never smoker alcohol intake: never substance use type: does not use caffeine: Yes Type: coffee what type of physical activity do you participate in: walking frequency: daily seatbelt use: always do you feel safe at home: Yes Audit: Pertinent Findings Pertinent Findings EKG Perinent findings: September 02, 2025. Normal sinus rhythm. Nonspecific ST and T wave abnormality. Echo (EF%) pertinent findings: 08/06/2023. EF is 60%. No aortic stenosis noted Consult pertinent findings: 09/02/2025. Gama THORNE. 1. [id number]. Continue lisinopril. 2. Abnormal EKG-EKG in office today shows normal QT interval with normal sinus rhythm and a nonspecific T wave changes and poor R wave progression. Previous QT interval has resolved. 3. Preop cardiovascular exam-EKG and echo reviewed. May proceed with surgical procedure. Recommendation Anesthesia Recommendation Anesthesia recommendation: OPTIMIZED for anesthesia
[2025-09-16] VITALS (10 sets, daily range): BP systolic 117–139; BP diastolic 69–81; PULSE 62–71; RESP 16–18; TEMP 36.5–36.7; O2SAT 92–98; BMI 43.1
--- OUTSIDE RECORDS SUMMARY | 2025-09-16 07:22 | XMS RPT_ITS | CCD ---
Author Organization [facility] ion [facility] Care Team Providers Care Yarn Examiner Name Role Phone Dossi Bbiiana BEEBE Unavailable Roya Dixon Unavailable Roya Dixon Unavailable Amparo Hitchcock MD Unavailable [phone] Ivette Grimes MD Primary Care Provider [facility], Keti Unavailable Dr. Ivette Grimes Primary Care Provider Dr. Ivette Grimes Referring Provider Dr. Bibiana Rehman Attending Provider [phone] Dr. Munir Siddiqui Attending Provider Dr. Marin Villalpando Attending Provider [phone] Dr. Munir Lucas Attending Provider Dr. Sam Guadarrama Referring Provider Ivette Grimes MD Primary Care Provider [facility], [place]eti Unavailable Dr. Ivette Grimes Primary Care Provider Dr. Ivette Grimes Referring Provider Dr. Bibiana Rehman Attending Provider [phone] Ivette Grimes MD Primary Care Provider Dr. Ivette Grimes Primary Care Provider Dr. Ivette Grimes Referring Provider Dossi, Dr. Mccarty Attending Provider [phone] Dr. Primo Ceron Attending Provider [place], Dr. Mcgarry Primary Care Provider Sydney, Dr. Mcgarry Referring Provider Dossi, Dr. Mccarty Attending Provider [phone] Cesar, Dr. Churchill Attending Provider [place], Dr. Mcgarry Primary Care Provider [place], Dr. Mcgarry Referring Provider Dossi, Dr. Mccarty Attending Provider [phone] Sydney, Dr. Mcgarry Primary Care Provider [place], Dr. Mcgarry Referring Provider Dossi, Dr. Mccarty Attending Provider [phone] Dr. Primo Ceron Attending Provider Cesar, Dr. Churchill Attending Provider [phone] [place] Ivette SHEARER Primary Care Provider [facility], [place]eti Unavailable [place], Dr. Mcgarry Primary Care Provider [place], Dr. Mcgarry Referring Provider Dossi, Dr. Mccarty Attending Provider [phone] Ernesto SHEARER, Jemal Unavailable [place], Dr. Mcgarry Primary Care Provider [place], Dr. Mcgarry Referring Provider Dossi, Dr. Mccarty Attending Provider [phone] [place], Dr. Mcgarry Primary Care Provider [place], Dr. Mcgarry Referring Provider Dossi, Dr. Mccarty Attending Provider [phone] Jess SYSTEMS INTEGRATION ENGINEER, FADUMO Ba Attending Provider Jyoti, Dr. Banuelos Attending Provider [phone] ELLE RASHEED Attending Unavailable SAM GUADARRAMA Referring Unavailable [facility], IVETTE James Primary Care Unavailable RASHEED, ELLE Attending Unavailable RASHEED, ELLE Referring Unavailable SYDNEY, IVETTE James Primary Care Unavailable ADELINA MARINELLI Attending Unavailable RASHEED, ELLE Referring Unavailable SYDNEY, IVETTE James Primary Care Unavailable ADELINA MARINELLI Attending Unavailable ADELINA MARINELLI Referring Unavailable SYDNEY, IVETTE James Primary Care Unavailable ADELINA MARINELLI Attending Unavailable SYDNEY, IVETTE James Primary Care Unavailable RASHEED, ELLE Attending Unavailable ADELINA MARINELLI Referring Unavailable SYDNEY, IVETTE James Primary Care Unavailable RASHEED, ELLE Admitting Unavailable RASHEED, ELLE Attending Unavailable SYDNEY, IVETTE James Primary Care Unavailable [place], Dr. Mcgarry Primary Care Provider [place], Dr. Mcgarry Referring Provider Dossi, Dr. Mccarty Attending Provider [phone] [place], Dr. Mcgarry Primary Care Provider [place], Dr. Mcgarry Referring Provider Dossi, Dr. Mccarty Attending Provider [phone] Sydney, Dr. Mcgarry Primary Care Provider [place], Dr. Mcgarry Referring Provider Dossi, Dr. Mccarty Attending Provider [phone] [place], Dr. Mcgarry Primary Care Provider [place], Dr. Mcgarry Referring Provider Dossi, Dr. Mccarty Attending Provider [phone] [place], Dr. Mcgarry Primary Care Provider [place], Dr. Mcgarry Referring Provider Dossi, Dr. Mccarty Attending Provider [phone] Referred, Self Primary Care Provider Unavailabl e Referred, Self Referring Provider Unavailable [facility], Keti Unavailable Dosparam, Dr. Mccarty Attending Provider [phone] Referred, Self Primary Care Provider Unavailabl e Referred, Self Referring Provider Unavailable [place], Dr. Mcgarry Primary Care Provider Jyoti, Dr. [...] Provider Ivette Grimes MD Primary Care Provider [facility], Keti Unavailable Haagen POULTRY PATHOLOGIST.MAINTAINER OPERATOR, Cindy Unavailable Suppan POULTRY PATHOLOGIST.MAINTAINER OPERATOR, Lubna A Unavailable Suppan POULTRY PATHOLOGIST.MAINTAINER OPERATOR, Lubna A Unavailable [phone] Suppan POULTRY PATHOLOGIST.MAINTAINER OPERATOR, Lubna A Unavailable Dr. Ivette Grimes MD Primary Care Provider Dr. Sam Pearl MD Attending Provider Dr. Sam Pearl MD Emergency Provider Dr. Ivette Grimes MD Referring Provider Dossi CONCEPCIÓN, Dr. Mccarty Attending Provider Dr. Buddy Hall DO Attending Provider Dr. Buddy Hall DO Emergency Provider Tanya SYSTEMS INTEGRATION ENGINEER-CJenni Attending Provider Tanya SYSTEMS INTEGRATION ENGINEER-CJenni Referring Provider Dr. Ivette Grimes MD Attending Provider Sydney SHEARER, Dr. Mcgarry Primary Care Provider Sydney SHEARER, Dr. Mcgarry Referring Provider Dossi DC, Dr. Mccarty Attending Provider Junaid SHEARER, Brett Attending Provider Junaid SHEARER, Brett Referring Provider Sydney SHEARER, Dr. Mcgarry Primary Care Provider Sydney SHEARER, Dr. Mcgarry Primary Care Provider Sydney SHEARER, Dr. Mcgarry Referring Provider Sydney SHEARER, Dr. Mcgarry Attending Provider Sydney SHEARER, Dr. Mcgarry Primary Care Provider Sydney SHEARER, Dr. Mcgarry Referring Provider Dossi DC, Dr. Mccarty Attending Provider [phone] Assessment, Health Risk Attending Provider Unava ilable Assessment, Health Risk Referring Provider Unava ilable Jyoti SHEARER, Dr. Banuelos Attending Provider Junaid SHEARER, Brett Other Provider Yovani SHEARER, Dr. Moe Emergency Provider Reji SHEARER, Dr. Shana Bianchi Attending Provider Reji SHEARER, Dr. Shana Bianchi Admit Provider Amos SHEARER, Dr. Salinas Other Provider Jo SHEARER, Dr. Daily Other Provider Osmany SHEARER, Dr. Tillman Other Provider Sreekanth LEMUS, Dr. More Other Provider Rosalva SHEARER, Dr. Brittany Pfeiffer Other Provider [phone] Jose SHEARER, Dr. Escobar Other Provider Yaneth SHEARER, Dr. Childress Other Provider Franko SHEARER, Dr. Bennett Other Provider [phone] Carlos A SHEARER, Dr. Khan Other Provider Ian SHEARER, Dr. Mcdermott Other Provider [phone] Nuno SHEARER, Dr. Pedersen Other Provider Franca SHEARER, Dr. Saldivar Other Provider Chhaya SHEARER, Dr. Jones Other Provider Unavailabl dinh Ko MD, Dr. Meza Other Provider [phone] Rebel SHEARER, Dr. August Other Provider Bin SHEARER, Dr. Live Other Provider Svetlana SHEARER, Dr. Ramirez Other Provider Jules LEMUS, Dr. Mejía Other Provider Lulú SHEARER, Dr. Acosta Other Provider [phone] Derek SHEARER, Dr. Regalado Other Provider Rajendra LEMUS, Dr. Kaur Other Provider Newton SHEARER, Dr. Alcantara Other Provider José Antonio SHEARER, Dr. Valentino Other Provider Manuel SHEARER, Dr. Mcgarry Other Provider Reji SHEARER, Dr. Shana Bianchi Other Provider Hunter SHEARER, Dr. Stephen Attending Provider Unavaila ble Arleth SHEARER, Dr. Jose Juan Alavrado Other Provider Amos SHEARER, Dr. Salinas Other Provider Jo SHEARER, Dr. Daily Other Provider Osmany SHEARER, Dr. Tillman Other Provider Dr. Derik Stack DO Other Provider Rosalva SHEARER, Dr. Brittany Pfeiffer Other Provider Jose SHEARER, Dr. Escobar Other Provider Yaneth SHEARER, Dr. Childress Other Provider Franko SHEARER, Dr. Sabrina Other Provider [phone] Carlos A SHEARER, Dr. Khan Other Provider [phone] Ian SHEARER, Dr. Mcdermott Other Provider [phone] Nuno SHEARER, Dr. Pedersen Other Provider Franac SHEARER, Dr. Saldivar Other Provider Chhaya SHEARER, Dr. Jones Other Provider Unavailabl dinh Ko MD, Dr. Meza Other Provider Rebel SHEARER, Dr. August Other Provider Bin SHEARER, Dr. Live Other Provider Svetlana SHEARER, Dr. Ramirez Other Provider Jules LEMUS, Dr. Mejía Other Provider Lulú SHEARER, Dr. Acosta Other Provider [phone] Derek SHEARER, Dr. Regalado Other Provider Rajendra LEMUS, Dr. Kaur Other Provider Newton SHEARER, Dr. Alcantara Other Provider José Antonio SHEARER, Dr. Valentino Other Provider Manuel SHEARER, Dr. Mcgarry Other Provider [phone] Arleth SHEARER, Dr. Jose Juan Alvarado Attending Provider Hunter SHEARER, Dr. Stephen Other Provider Unavailable Dr. Ivette Grimes MD Primary Care Provider Sydney SHEARER, Dr. Mcgarry Referring Provider Dossi DC, Dr. Mccarty Attending Provider Dr. Ivette Grimes MD Primary Care Physician Brett Quiroga MD Attending Physician Brett Quiroga MD Referring Provider Sydney SHEARER, Dr. Mcgarry Referring Provider Dossi DC, Dr. Mccarty Attending Physician Sydney SHEARER, Dr. Mcgarry Attending Physician Assessment, Health Risk Attending Physician Unav ailable Assessment, Health Risk Referring Provider Marthava evangelist Montes MD, Dr. Banuelos Attending Physician Junaid SHEARER, Brett Nurse Practitioner Yovani SHEARER, Dr. Moe Emergency Department Physician Reji SHEARER, Dr. Shana Bianchi Attending Physician Reji SHEARER, Dr. Shana Bianchi Admitting Physician Reji SHEARER, Dr. Shana Bianchi Nurse Practitioner Hunter SHEARER, Dr. Stephen Attending Physician Unavail jamila Reinoso MD, Dr. Jose Juan Alvarado Nurse Practitioner Amos SHEARER, Dr. Salinas Nurse Practitioner Jo SHEARER, Dr. Daily Nurse Practitioner Osmany SHEARER, Dr. Tillman Nurse Practitioner [phone] Sreekanth LEMUS, Dr. More Nurse Practitioner Rosalva SHEARER, Dr. Brittany Pfeiffer Nurse Practitioner Jose SHEARER, Dr. Escobar Nurse Practitioner Yaneth SHEARER, Dr. Childress Nurse Practitioner [phone] Franko SHEARER, Dr. Bennett Nurse Practitioner Carlos A SHEARER, Dr. Khan Nurse Practitioner [phone] Ian SHEARER, Dr. Mcdermott Nurse Practitioner Nuno SHEARER, Dr. Pedersen Nurse Practitioner Franca SHEARER, Dr. Saldivar Nurse Practitioner [phone] Chhaya SHEARER, Dr. Jones Nurse Practitioner Unavail jamila Ko MD, Dr. Meza Nurse Practitioner [phone] Rebel SHEARER, Dr. August Nurse Practitioner Bin SHEARER, Dr. Live Nurse Practitioner Svetlana SHEARER, Dr. Ramirez Nurse Practitioner [phone] Jules LEMUS, Dr. Mejía Nurse Practitioner Lulú SHEARER, Dr. Acosta Nurse Practitioner [phone] Derek SHEARER, Dr. Regalado Nurse Practitioner Rajendra LEMUS, Dr. Kaur Nurse Practitioner Newton SHEARER, Dr. Alcantara Nurse Practitioner [phone] José Antonio SHEARER, Dr. Valentino Nurse Practitioner Manuel SHEARER, Dr. Mcgarry Nurse Practitioner [phone] Arleth SHEARER, Dr. Jose Juan Alvarado Attending Physician Hunter SHEARER, Dr. Stephen Nurse Practitioner Unavaila ble SYDNEY, IVETTE J Primary Care Unavailable SYDNEY, IVETTE J Attending Unavailable SYDNEY, IVETTE J Attending Unavailable SYDNEY, IVETTE J Primary Care Unavailable AMANDA ARTEAGA Attending Unavailable SYDNEY, IVETTE J Primary Care Unavailable SYDNEY, IVETTE James Attending Unavailable SYDNEY, IVETTE J Primary Care Unavailable LUBNA DE LA GARZA Attending Unavailable SYDNEY, IVETTE J Primary Care Unavailable SYDNEY, IVETTE J Attending Unavailable SYDNEY, IVETTE J Primary Care Unavailable AMANDA ARTEAGA Referring Unavailable FATUMA BECKFORD Attending Unavailable SYDNEY, IVETTE J Primary Care Unavailable SYDNEY, IVETTE J Primary Care Unavailable SYDNEY, IVETTE J Attending Unavailable SYDNEY, IVETTE J Primary Care Unavailable SYDNEY, IVETTE J Attending Unavailable JENNI JAIN Attending Unavailabl e SYDNEY, IVETTE J Primary Care Unavailable Brett Quiroga Referring Unavailable Vin Montes Attending Unavailable [place], Ivette Primary Care Unavailable [place], Ivette Primary Care Unavailable Jenni Jain Referring Unavailable Jenni Jain Attending Unavailable Sydney, Ivette Primary Care Unavailable Saundra Christensen Referring Unavailable Saundra Christensen Attending Unavailable [place], Ivette Primary Care Unavailable Sydney, Ivette Referring Unavailable Rivka Malloy NP Attending Unavailable [place], Ivette Primary Care Unavailable Sam Pearl Attending Unavailable [place], Ivette Primary Care Unavailable Buddy Hall Attending Unavailable Shana Mendoza Consulting Unavailable Brittany Harrison Attending Unavailable Shana Mendoza Admitting Unavailable Sydney, Ivette Primary Care Unavailable Jose Juan Reinoso Consulting Unavailable Brett Quiroga Referring Unavailable Mollison, Brett Attending Unavailable [place], Ivette Primary Care Unavailable [place], Ivette Referring Unavailable Sydney, Ivette Attending Unavailable [place], Ivette Primary Care Unavailable [place], Ivette Referring Unavailable Mollison, Brett Attending Unavailable [place], Ivette Primary Care Unavailable Mollison, Brett Consulting Unavailable Mollison, Brett Referring Unavailable Mollison, Brett Attending Unavailable [place], Ivette Primary Care Unavailable [place], Ivette Primary Care Unavailable Sydney, Ivette Referring Unavailable Jess DENNIS, Jesenia Attending Unavailable Sydney, Ivette Referring Unavailable Dossi, Bibiana Attending Unavailable Sydney, Ivette Primary Care Unavailable Sydney, Ivette Referring Unavailable Sydney, Ivette Attending Unavailable Sydney, Ivette Primary Care Unavailable [place], Ivette Attending Unavailable Sydney, Ivette Referring Unavailable [place], Ivette Primary Care Unavailable Sydney, Ivette Primary Care Unavailable Mollison, Brett Attending Unavailable Mollison, Brett Referring Unavailable Sydney, Ivette Primary Care Unavailable Mollison, Brett Attending Unavailable Mollison, Brett Referring Unavailable Sydney, Ivette Primary Care Unavailable Sydney, Ivette Referring Unavailable [place], Ivette Attending Unavailable [place], Ivette Referring Unavailable Mollison, Brett Attending Unavailable [place], Ivette Primary Care Unavailable [place], Ivette Primary Care Unavailable [place], Ivette Referring Unavailable Dossi, Bibiana Attending Unavailable Sydney, Ivette Primary Care Unavailable Sydney, Ivette Referring Unavailable Dossi, Bibiana Attending Unavailable Sydney, Ivette Primary Care Unavailable Sydney, Ivette Referring Unavailable Saundra Christensen Attending Unavailable [place], Ivette Primary Care Unavailable Sydney, Ivette Referring Unavailable Dossi, Bibiana Attending Unavailable Assessment, Health Risk Referring Unavaila ble Assessment, Health Risk Attending Unavaila ble [place], Ivette Primary Care Unavailable [place], Ivette Referring Unavailable Sydney, Ivette Primary Care Unavailable Dossi, Bibiana Attending Unavailable [place], Ivette Referring Unavailable Mollison, Brett Attending Unavailable [place], Ivette Primary Care Unavailable Sydney, Ivette Referring Unavailable Dossi, Bibiana Attending Unavailable [place], Ivette Primary Care Unavailable Sydney, Ivette Primary Care Unavailable [place], Ivette Referring Unavailable Saundra Christensen Attending Unavailable [place], Ivette Referring Unavailable Mollison, Brett Attending Unavailable Sydney, Ivette Primary Care Unavailable [place], Ivette Primary Care Unavailable Sydney, Ivette Referring Unavailable Dossi, Bibiana Attending Unavailable Sydney, Ivette Primary Care Unavailable [place], Ivette Referring Unavailable Mollison, Brett Attending Unavailable [place], Ivette Primary Care Unavailable Sdyney, Ivette Referring Unavailable Dossi, Bibiana Attending Unavailable White, Shana L Admitting Unavailable Shana Mendoza Consulting Unavailable Brittany Harrison Attending Unavailable [facility] Primary Care Unavailable Jose Juan Reinoso Consulting Unavailable Brittany Harrison Consulting Unavailable Jose Juan Reinoso Attending Unavailable Brad Trinidad Consulting Unavailable Killian Osorio Consulting Unavailable Primo Ceron Consulting Unavailable Derik Stack Consulting Unavailable Brittany Blackwell Consulting Unavailable Shawn Garcia Consulting Unavailable Monroe Wolfe Consulting Unavailable Sabrina Abdul Consulting UnavailBill Castanon Consulting Unavailable Baldemar Sosa Consulting Unavailable Slava Reina Consulting Unavailable Janna Schulte Consulting Unavailable AljunKaren coker Consulting Unavailable Ko, Susana Consulting Unavailable Rebel, Mata Consulting Unavailable Calos Steward Consulting Unavailable Svetlana, James Consulting Unavailable DheAlfonzo virgen Consulting Unavailable Dave Chino Consulting Unavailable Sabine Reed Consulting Unavailable Vincent Drew Consulting Unavailable Quinton Glez Consulting Unavailable Chicho Chou Consulting UnavailIvette Pham Consulting Unavailable Shana Mendoza Attending Unavailable [facility] Primary Care Unavailable [facility] Ivette Primary Care Unavailable [place] CityIvette Referring Unavailable Bibiana Rehman Attending Unavailable [facility] Primary Care Unavailable [facility] Ivette Referring Unavailable Jesenia Mercado NP Attending Unavailable [facility] Primary Care Unavailable [facility] Ivette Referring Unavailable Sydney, Ivette Attending Unavailable Allergies Allergy Classification Reported Allergen(s) Allergy Type Date of Onset Reaction(s) Facility (20 sources) Betamethasone; Translations: [BETAMETHASONE DIPROPIONATE] Drug Allergy 12-21-19 [facility], [facility] Work Phone: (20 sources) Lidocaine; Translations: [LIDOCAINE] Drug Allergy 12-24-19 20 [facility] Work Phone: (7 sources) Corticosteroids Allergy to substance 01-01-20 [facility] Work Phone: (20 sources) Glucocorticoid Receptor Agonists Allergy to substance 10-16-20 [facility] (20 sources) dapagliflozin; Translations: [DAPAGLIFLOZIN] Drug Allergy 08-05-20 [facility]pset [facility] (20 sources) metFORMIN; Translations: [METFORMIN] Drug Allergy 08-05-20 [facility]pset [facility] (1 source) Corticosteroids Drug allergy (disorder) 09-10-20 [facility] (1 source) Lidocaine Drug Allergy 09-10-20 [facility] Medications Current Medications Medication Drug Class(es) Dates Sig (Normalized) Sig (Original) [id number] 200 actuat albuterol 0.09 mg/actuat metered dose inhaler (20 sources) beta2-Adrenergic Agonist Start: 08-10-2022 Start: 08-10-2022 Albuterol Sulf ate 90 mcg/actuation HFA aerosol inhaler Active 2 [...] 27, 2015 2:29pm Start: 10-27-2015 End: 08-10-2022 Start: 10-27-2015 End: 08-10-2022 Albuterol Sulfate 1 [...] Active BIPAP (20 sources) BIPAP Active BIPAP Bipap -Bilevel Positive Airway Pressure ([facility] Informational Use Only) device (2 sources) Start: 07-06-2025 Bipap -Bilevel Positive Airway Pressure ([facility] Informational Use Only) device Active 0 .ROUTE July 06, 2025 12:00am LETITIA As directed cefdinir 300 mg oral capsule (4 sources) Cephalosporin Antibacterial Start: 07-07-2025 codeine phosphate 2 mg/ml / guaiFENesin 20 mg/ml oral solution (2 sources) Opioid Agonist Start: 12-11-2024 End: 12-18-2024 take 10 mL by mouth three times daily as needed for cough codeine-guaiFENesin (ROBITUSSIN AC) 10-100 mg/5 mL syrup Indications: Sinobronchitis Take 10 mL by mouth three times a day as needed for cough for up to 7 days. 210 mL 12/11/2024 12/18/2024 Active Cpap - Continuous Positive Airway Pressure([facility] Informational Use Only) device (2 sources) Start: 07-06-2025 Cpap - Continuous Positive Airway Pressure([facility] Informational Use Only) device Active 0 .ROUTE July 06, 2025 12:00am LETITIA As directed dapagliflozin 5 mg oral tablet (4 sources) [...] Histamine-1 Receptor Antagonist Start: 12-27-2021 End: 07-05-2023 Start: 04-26-2020 End: 08-23-2020 Comment on above: Take 1 tablet by [facility] once daily. FLUoxetine 20 mg oral capsul e (20 sources) Serotonin Reuptake Inhibitor Start: 11-16-2022 End: 06-07-2026 Start: 10-12-2022 End: 11-18-2022 take 1 capsule by mouth once daily, then take 2 capsules by mouth once daily FLUoxetine (PROZAC) 10 mg capsule Take 1 capsule by mouth once daily for 7 days, THEN 2 capsules once daily. 67 capsule 1 10/12/2022 11/18/2022 Active Comment on above: Take 1 capsule by mo [facility] once daily for 7 days, THEN 2 capsules once daily. Take 1 capsule by mo [facility] once daily. gabapentin 300 mg oral capsu le (20 sources) Anti-epileptic Agent Start: 12-28-2022 End: 12-04-2025 Start: 12-28-2022 End: 07-21-2025 take 1 capsule [...] December 28, 2022 1:00am Start: 12-07-2022 End: 05-03-2023 gabapentin (NEURONTIN) 300 m g capsule Take 1 tablet in AM, afternoon and bedtime. If after 2 days symptoms persist, increase to 1 tab in AM, afternoon and 2 tabs at bedtime. 120 capsule 2 12/07/2022 02/28/2023 Discontinued Start: 08-22-2021 End: 02-21-2023 Start: 08-22-2021 End: 12-28-2022 take 200 mg by mouth twice daily Gabapentin Discontinu ed 200 MG PO TWICE A DAY January 01, 2022 4:28pm December 28, 2022 3:58pm Start: 08-22-2021 End: 01-01-2022 take 1 capsule by mouth twice daily Gabapentin 100 mg capsule Discontinued 100 mg PO TWICE A DAY August 22, 2021 12:00am January 01, 2022 4:30pm Start: 12-05-2017 End: 12-30-2017 Start: 12-05-2017 End: 12-30-2017 take 1 capsule by mouth twice daily at mealtime Gabapentin 300 MG capsule Discontinued 300 mg PO TWICE DAILY WITH MEALS December 05, 2017 1:00am December 30, 2017 3:46pm Start: 05-22-2017 take 1 capsule by [facility] three times daily GABAPENTIN 300 MG CAPS 1 po tid GABAPENTIN [id number] Jackson Brown Comment on above: Take [facility] daily for 90 days. Take 1 tablet in AM, afternoon and bedtime. If after 2 days symptoms persist, increase to 1 tab in AM, afternoon and 2 tabs at bedtime. Take one po qhs Take 1 capsule by [facility] twice daily for 180 days. Take one po qhs 3 ml insulin glargine 100 unt/ml pen injector (5 sources) Insulin Analog Start: 07-07-2025 End: 10-13-2025 Start: 07-07-2025 Insulin Glargi ne (Lantus Solostar U-100 Insulin) 100 unit/mL (3 mL) insulin pen Active 10 U SC EVERY EVENING 15 0 July 07, 2025 12:00am ipratropium bromide 0.021 mg/actuat metered dose nasal spray (20 sources) Anticholinergic Start: 05-02-2023 Ipratropium Br omide (ATROVENT) 21 mcg (0.03 %) nasal spray Use 2 Sprays in the nose every 12 hours. 30 mL 5 05/02/2023 Active Start: 08-23-2020 Ipratropium Br omide 0.03 % spray,non-aerosol Active 2 NMA INTRANASAL TWICE A DAY as needed for allergies August 23, 2020 12:00am administer into each nostril Start: 08-23-2020 take 1 spray(s) nasa l route twice daily Ipratropium [place] Active 2 SPRAY INTRANASAL TWICE A DAY August 23, 2020 12:00am administer into each nostril Start: 03-14-2020 End: 05-01-2023 Comment on above: Use 2 Sprays in [...] the CT contrast administration guidelines link. levonorgestrel 0.370247 mg/hr intrauterine system (20 sources) Progestin, Progestin-containing Intrauterine Device Start: 2021 Start: 08-10-2022 Levonorgestrel Active 1 DEVICE INTRA-UTER ONCE August 10, 2022 12:00am as a single dose Start: 04-18-2021 End: 04-17-2026 levonorgestrel (KYLEENA) 17. 5 mcg/24 hrs (5 yrs) 19.5 mg IUD Indications: Encounter for IUD insertion 1 Each by INTRAUTERINE route as directed. 1 Each 04/18/2021 04/17/2026 Active Start: 04-26-2020 End: 08-10-2022 Start: 04-26-2020 End: 08-10-2022 Levonorgestrel (Jojo) 14 [...] Start: 09-09-2017 JOJO 13.5 MG IUD LEVONORGESTREL [id number] Amparo Hitchcock MD Comment on above: 1 Each by INTRAUTERI NE route as directed. lisinopril 10 mg oral tablet (20 sources) Angiotensin Converting Enzyme Inhibitor Start: 12-14-2022 End: 07-15-2025 Start: 02-14-2019 End: 05-22-2023 Comment on above: Take 1 tablet by [...] 06/03/2024 06/13/2024 Active Start: 04-26-2020 End: 04-28-2020 nitrofurantoin, macrocrystals 25 mg / nitrofurantoin, monohydrate 75 mg oral capsule (20 sources) Nitrofuran Antibacterial Start: 09-24-2024 End: 09-29-2024 take 1 capsule by mouth twice daily at mealtime nitrofurantoin monohydrate and macrocrystal (MACROBID) 100 mg capsule Indications: Dysuria Take 1 capsule by mouth two times a day with meals for 5 days. 10 capsule 09/24/2024 09/29/2024 Active Start: 06-21-2021 End: 06-21-2021 Start: 06-21-2021 End: 06-21-2021 take 1 capsule by mouth every twelve hours at mealtime Nitrofurantoin Monohyd/M-Cryst (Macrobid) 100 mg capsule Discontinued 100 mg PO Q12H 14 7 0 June 21, 2021 12:00am June 27, 2021 12:00am June 21, 2021 4:26pm must administer with a meal/food [place]-3 Fatty Acids (Fish Oil Concentrate) 1,000 mg capsule (20 sources) Start: 02-21-2021 take 1 capsule by mouth once daily [place]-3 Fatty Acids (Fish Oil Concentrate) 1,000 mg capsule Active 1000 MG PO DAILY February 21, 2021 9:19am Start: 02-21-2021 End: 10-16-2024 take 1 capsule by mouth once daily [place]-3 Fatty Acids (Fish Oil Concentrate) 1,000 mg capsule Discontinued 1000 mg PO DAILY February 21, 2021 12:00am October 16, 2024 10:15pm supplement Start: 02-21-2021 End: 10-16-2024 take 1 capsule by mouth once daily [place]3 Fatty Acids (Fish Oil Concentrate) 1,000 mg capsule Discontinued 1000 mg PO DAILY February 21, 2021 12:00am October 16, 2024 10:15pm Start: 02-21-2021 take 1 capsule by mo [facility] once daily [place]3 Fatty Acids (Fish Oil Concentrate) 1,000 mg capsule Active 1000 MG PO DAILY February 20, 2021 11:00pm Start: 02-21-2021 take 1 capsule by mo [facility] once daily [place]-3 Fatty Acids (Fish Oil Concentrate) 1,000 mg capsule Active 1000 MG PO DAILY February 21, 2021 12:00am ondansetron 4 mg oral tablet (20 sources) Serotonin-3 Receptor Antagonist Start: 11-30-2022 End: 06-16-2025 Start: 04-26-2020 End: 08-10-2022 Start: 04-26-2020 End: 08-10-2022 take 1 tablet by mouth every six hours as needed for nausea and vomiting Ondansetron Hcl (Zofran) 4 mg tablet Discontinued 4 mg PO EVERY 6 HOURS as needed for nausea and vomiting April 26, 2020 12:00am August 10, 2022 3:08pm Start: 03-23-2020 End: 04-26-2020 Comment on above: Take 1 tablet by ishmael every 8 hours as needed for nausea/vomiting. Ixbrbbjv-Zb-Pyk-Fe -FA tab (20 sources) Start: 1 take 1 tablet by mouth once daily Zaostsrk-Hs-Fuw-F e-FA tab Take 1 tablet by mouth once daily. 0 03/14/2011 Active Comment on above: Take 1 tablet by ishmael once daily. pgverbfl-mgo-Mk-FA 1 mg capsule (20 sources) Start: 0 take 1 capsule by mouth once daily okpfipyg-zef-Dq-F A 1 mg capsule Active 1 CAP PO DAILY April 26, 2020 10:18am Start: 04-26-2020 End: 08-05-2023 take 1 capsule by mouth once daily oxrpvbzr-alq-Ug-FA 1 mg capsule Discontinued 1 CAP PO DAILY April 25, 2020 11:00pm August 05, 2023 10:25am Start: 04-26-2020 End: 08-05-2023 take 1 capsule by mouth once daily lpdaxkdl-vvl-Nz-FA 1 mg capsule Discontinued 1 CAP PO DAILY April 26, 2020 12:00am August 05, 2023 11:25am Start: 04-26-2020 take 1 capsule by mo [facility] once daily buvwchgv-jqt-Km-FA 1 mg capsule Active 1 CAP PO DAILY April 25, 2020 11:00pm Start: 04-26-2020 take 1 capsule by mo [facility] once daily pthgyspi-iho-Yw-FA 1 mg capsule Active 1 CAP PO DAILY April 26, 2020 12:00am rimegepant 75 mg disintegrating oral tablet (20 sources) Start: 12-26-2023 End: 09-02-2024 Comment on above: Take 1 tablet by ishmael once daily as needed. Semaglutide (2 sources) Start: 07-05-2025 semaglutide (OZEMPIC) 2 mg/dose (8 mg/3 mL) pen injector (6 sources) Start: 06-09-2025 End: 12-06-2025 inject 2 mg by subcutaneous injection every week semaglutide (OZEMPIC) 2 mg/dose (8 mg/3 mL) pen injector Indications: Type 2 diabetes mellitus with microalbuminuria, with long-term current use of insulin (HCC) Inject 2 mg subcutaneously one time a week. 3 mL 5 06/09/2025 12/06/2025 Active Semaglutide (Ozempic) 2 mg/dose (8 mg/3 mL) pen injector (2 sources) Start: 07-05-2025 Semaglutide (Ozempic) 2 mg/dose (8 mg/3 mL) pen injector Active 2 mg SC EVERY WEEK July 05, 2025 12:00am Semaglutide (Semaglutide 2 Mg/Dose (8 Mg/3 Ml) Subcutaneous Pen Injector) 2 mg/dose (8 mg/3 mL) pen injector (1 source) Start: 07-05-2025 inject 2 mg by subcutaneous injection every week Semaglutide (Semaglutide 2 Mg/Dose (8 Mg/3 Ml) Subcutaneous Pen Injector) 2 mg/dose (8 mg/3 mL) pen injector Active 2 mg SC EVERY WEEK July 05, 2025 12:00am tiZANidine 4 mg oral tablet (20 sources) Central alpha-2 Adrenergic Agonist Start: 08-10-2022 End: 08-06-2025 Start: 08-01-2022 take 1 tablet by ishmael [...] needed. 20 tablet 0 07/10/2022 Active Start: 05-08-2017 take 1 tablet by ishmael th three times daily as needed for muscle spasms ZANAFLEX 2 MG CAPS One tablet by mouth three times daily as needed for muscle spasms TIZANIDINE HCL [id number] Sammy Victor [employer]-C Start: 04-29-2017 End: 08-10-2022 take 1 tablet by mouth every eight hours as needed tiZANidine (ZANAFLEX) 4 mg tablet Take 1 tablet by mouth every 8 hours as needed. 20 tablet 0 04/16/2022 Active Start: 04-29-2017 End: 08-10-2022 take 1 tablet by mouth once daily as needed for muscle spasms Tizanidine 4 MG tablet Discontinued 4 mg PO DAILY NEEDED as needed for Muscle Spasm April 29, 2017 12:00am August 10, 2022 3:09pm Start: 04-26-2017 End: 05-06-2017 ZANAFLEX 2 MG CAPS Take 1-2 tablets every 8 hours as needed. TIZANIDINE HCL [id number] Santana IRENE Comment on above: Take 1 tablet by ishmael th every 8 hours as needed. topiramate 50 mg oral tablet (20 sources) Anti-epileptic Agent Start: 08-05-2025 Start: 07-03-2022 End: 01-11-2026 Start: 04-28-2020 End: 08-16-2022 Start: 04-28-2020 End: 05-05-2020 Start: 04-28-2020 End: 10-02-2022 take 1 tablet by mouth twice daily Topiramate 50 mg tablet Discontinued 50 mg PO TWICE A DAY 60 June 16, 2020 12:00am August 16, 2022 1:03pm Start: 09-09-2017 TROKENDI XR 20 0 MG [id number] TOPIRAMATE [id number] Amparo Hitchcock MD Start: 09-28-2016 End: 09-09-2017 TOPIRAMATE 15 MG CPSP 11/28 TOPIRAMATE [id number] Santana IRENE Comment on above: Take 1 tablet by ishmael th twice daily. Take 1 tab in AM and 2 tabs in PM. One tab daily Take 1 tablet by ishmael th two times a day. (14 sources) Start: 07-07-2025 Start: 07-06-2025 Start: 02-21-2021 End: 10-16-2024 Start: 04-26-2020 Start: 04-26-2020 End: 08-05-2023 Start: 04-26-2020 End: 08-23-2020 Completed/Discontinued Medications Medication Drug Class(es) Dates Sig (Normalized) Sig (Original) ACETAMINOPHEN CAPS (5 sources) Start: 09-28-2016 End: 09-09-2017 TYLENOL CAPS ACETAMINOPHEN CAPS [id number] Amparo Hitchcock MD Start: 09-28-2016 TYLENOL CAPS 2 ACETAMINOPHEN CAPS [id number] Santana IRENE acetaminophen 325 mg / HYDRO codone bitartrate 5 mg oral tablet (20 sources) Opioid Agonist Start: 05-06-2019 End: 05-10-2019 Start: 05-06-2019 End: 05-10-2019 Hydrocodone-Acetaminophen 1 TABLET [...] one every 6 hours as needed. HYDROCODONE-ACETAMINOPHEN [id number] Santana IRENE acetaminophen 325 mg / oxyCO DONE hydrochloride 5 mg oral tablet (20 sources) Opioid Agonist Start: 06-23-2025 End: 07-05-2025 Start: 06-23-2025 End: 07-05-2025 Oxycodone-Acetaminophen (End ocet) 5-325 mg tablet Discontinued 1 {tbl} PO Q4H as needed for pain 20 4 0 June 23, 2025 July 05, 2025 7:49pm Impingement of left shoulder Other specified joint disorders, left shoulder Start: 02-25-2019 End: 03-04-2019 Start: 02-25-2019 End: 03-04-2019 Oxycodone-Acetaminophen 1 TA [...] 04, 2019 12:07am Start: 02-17-2019 End: 02-22-2019 Start: 02-17-2019 End: 02-22-2019 Oxycodone-Acetaminophen (Per cocet 5-325 Mg Tablet) 1 EACH tablet Discontinued 1 NMA PO EVERY 4 HOURS NEEDED as needed for Pain 28 5 0 February 17, 2019 4:38pm February 21, 2019 12:00am February 22, 2019 12:10am Calculus of kidney Calculus of kidney amitriptyline hydrochloride 25 mg oral tablet (20 sources) Tricyclic Antidepressant Start: 03-23-2020 End: 04-26-2020 Start: 03-23-2020 End: 04-26-2020 take 1 tablet by mouth at bedtime Amitriptyline 25 MG tablet Discontinued 25 mg PO AT BEDTIME March 23, 2020 12:00am April 26, 2020 10:16am amoxicillin 875 mg / clavula manuela 125 mg oral tablet (20 sources) Penicillin-class Antibacterial Start: 10-27-2023 End: 12-10-2023 Start: 10-27-2023 End: 12-10-2023 Amoxicillin-Pot Clavulanate 875-125 mg tablet Discontinued 1 {tbl} PO TWICE A DAY 14 0 October 27, 2023 1:00am December 10, 2023 10:58am Start: 10-27-2023 End: 12-10-2023 take 1 tablet by mouth twice daily Amoxicillin-Pot Clavulanate Discontinued 1 TABLET PO TWICE A DAY October 27, 2023 1:00am December 10, 2023 10:58am Start: 02-17-2019 End: 02-25-2019 onabotulinumtoxina 200 unt injection (6 sources) Acetylcholine [...] mg injection (MARCAINE PF) 24 hr buPROPion hydrochlorid e 150 mg extended release oral tablet (20 sources) Aminoketone Start: 02-14-2019 End: 02-17-2019 CPAP (20 sources) Start: 04-09-2022 CPAP Indicatio [...] oral tablet (2 sources) Muscle Relaxant Start: End: take 1 tablet by mouth every eight hours as needed for muscle spasms and muscle spasms cyclobenzaprine (FLEXERIL) 10 mg tablet Indications: Spasm of muscle Take 1 tablet by mouth three times a day as needed for muscle spasm for up to 7 days. 21 tablet 04/07/2025 04/12/2025 Discontinued dicyclomine hydrochloride 10 mg oral capsule (20 sources) Anticholinergic Start: 019 End: 020 Start: 05-08-2019 End: 04-26-2020 take 20 mg by mouth three times daily before mealtime Dicyclomine Discontinued 20 MG PO THREE TIMES DAILY BEFORE MEALS May 08, 2019 12:00am April 26, 2020 10:16am diflunisal 500 mg oral tablet (5 sources) Nonsteroidal Anti-inflammatory Drug Start: 05-02-2017 End: 09-09-2017 DIFLUNISAL 500 MG TABS DIFLUNISAL [id number] aRghav IRENE 0.5 ml dulaglutide 1.5 mg/ml auto-injector (20 sources) GLP-1 Receptor Agonist Start: 07-25-2021 End: 10-16-2024 Start: 04-26-2020 End: 08-10-2022 Start: 04-26-2020 End: 08-10-2022 Dulaglutide (Trulicity) 1.5 mg/0.5 mL pen injector Discontinued 1.5 mg SC EVERY WEEK April 26, 2020 12:00am August 10, 2022 3:00pm Comment on above: Inject 0.75 mg subcu taneously one time a week. Inject dose once per week. Discard Pen After 1 ml erenumab-aooe 140 mg/ml auto-injector (20 sources) Start: 07-22-2018 End: 02-21-2021 Start: 07-22-2018 End: 02-21-2021 inject 140 mg by intramuscular injection every month Erenumab-Aooe Discontinued 140 MG IM EVERY MONTH July 22, 2018 12:00am February 21, 2021 9:15am etodolac 500 mg oral tablet (20 sources) Nonsteroidal Anti-inflammatory Drug Start: 08-07-2021 End: 01-01-2022 glipiZIDE 5 mg oral tablet (20 sources) Sulfonylurea Start: 07-11-2020 End: 02-21-2021 hydrocortisone 100 mg injection (20 sources) Corticosteroid Start: 04-26-2020 End: 04-28-2020 ibuprofen 200 mg oral capsul e (20 sources) Nonsteroidal Anti-inflammatory Drug Start: 07-22-2018 End: 04-28-2020 Start: 07-22-2018 End: 04-28-2020 Ibuprofen 200 MG capsule Dis continued 400 mg PO NEEDED as needed for Pain July 22, 2018 12:00am April 28, 2020 4:40pm Start: 07-22-2018 End: 04-28-2020 Ibuprofen Discontinued 400 M G PO NEEDED July 22, 2018 12:00am April 28, 2020 4:40pm levoFLOXacin 500 mg oral tablet (20 sources) Quinolone Antimicrobial Start: 06-21-2021 End: 01-01-2022 LORazepam 1 mg oral tablet (20 sources) Benzodiazepine Start: 02-27-2023 End: 03-28-2023 LORazepam (ATIVAN) 1 mg tablet Indications: Anxiety One tab one hour before test 1 tablet 0 02/27/2023 03/28/2023 Start: 09-28-2016 LORAZEPAM 1 MG TABS LORAZEPAM [id number] Santana IRENE Start: 10-27-2013 End: 04-26-2020 Comment on above: One tab one hour bef ore test magnesium oxide 400 mg oral tablet (20 sources) Start: 02-17-2019 End: 04-26-2020 Methylprednisolone (20 sources) Corticosteroid Start: 08-07-2021 End: 09-13-2021 Start: 08-07-2021 End: 11-10-2021 take 1 tablet by mouth once Methylprednisolone (Medrol (Temo)) 4 mg tablets,dose pack Discontinued 0 PO per package directions 21 0 August 07, 2021 12:00am September 13, 2021 4:32pm take as directed metroNIDAZOLE 0.0075 mg/mg t opical gel (20 sources) Nitroimidazole Antimicrobial Start: 08-10-2022 End: 12-28-2022 Start: 04-26-2020 End: 08-10-2022 Start: 02-18-2020 End: 03-05-2023 Metronidazole Discontinued 1 APPLIC TOPICAL TWICE A DAY August 10, 2022 12:00am December 28, 2022 4:01pm Comment on above: Apply to affected ar ea twice daily. montelukast 10 mg oral table t (20 sources) Leukotriene Receptor Antagonist Start: 04-26-2020 End: 08-10-2022 Start: 04-26-2020 End: 08-10-2022 take 1 tablet by mouth at bedtime Montelukast (Singulair) 10 mg tablet Discontinued 10 mg PO AT BEDTIME April 26, 2020 12:00am August 10, 2022 3:08pm naproxen 500 mg oral tablet (20 sources) Nonsteroidal Anti-inflammatory Drug Start: 05-05-2020 End: 08-23-2020 naratriptan 2.5 mg oral tablet (20 sources) Serotonin-1b and Serotonin-1d Receptor Agonist Start: 12-10-2023 End: 02-04-2024 Start: 09-13-2023 take 1 mg by mouth [...] a month. ofloxacin 3 mg/ml otic solution (20 sources) Quinolone Antimicrobial Start: 10-27-2023 End: 12-10-2023 Start: 10-27-2023 End: 12-10-2023 Ofloxacin 0.3 % drops Discon tinued 10 NMA LEFT EAR DAILY 10 7 0 October 27, 2023 1:00am December 10, 2023 10:58am Start: 05-28-2023 End: 06-04-2023 ofloxacin (FLOXIN) 0.3 % sarah c solution Use 10 Drops in both ears once daily for 7 days. 5 mL 0 05/28/2023 06/04/2023 Active Comment on above: Use 10 Drops in both ears once daily for 7 days. [place]-3 Fatty Acids (20 sources) Start: 04-26-2020 End: 08-23-2020 take 500 mg by mouth once daily [place]-3 Fatty Acids Discontinued 500 MG PO DAILY April 26, 2020 10:19am August 23, 2020 10:22am Start: 04-26-2020 End: 08-23-2020 take 500 mg by mouth once daily [place]-3 Fatty Acids Discontinued 500 MG PO DAILY April 25, 2020 11:00pm August 23, 2020 9:22am Start: 04-26-2020 End: 08-23-2020 take 500 mg by mouth once daily [place]-3 Fatty Acids Discontinued 500 MG PO DAILY April 26, 2020 12:00am August 23, 2020 10:22am [place]-3 Fatty Acids (FISH OIL) 500 mg cap (20 sources) Start: 10-09-2019 End: 06-07-2025 take 1 capsule by mouth once daily [place]3 Fatty Acids (FISH OIL) 500 mg cap Take 1 capsule by mouth once daily. 30 capsule 11 10/09/2019 06/07/2025 Discontinued Start: 10-09-2019 take 1 capsule by [facility] once daily [place]-3 Fatty Acids (FISH OIL) 500 mg cap Take 1 capsule by mouth once daily. 30 capsule 11 10/09/2019 Active Comment on above: Take 1 capsule by [facility] once daily. [place]-3 Fatty Acids 500 mg capsule (16 sources) Start: 0 End: 0 take 1 capsule by mouth once daily [place] Fatty Acids 500 mg capsule Discontinued 500 mg PO DAILY April 26, 2020 12:00am August 23, 2020 10:22am omeprazole 20 mg delayed release oral capsule (20 sources) Proton Pump Inhibitor Start: 2 End: Start: 04-26-2020 End: 08-10-2022 Comment on above: Take 1 capsule by mo [facility] daily before breakfast. 1/2 hr before meal. PARoxetine hydrochloride 10 mg oral tablet (20 sources) Serotonin Reuptake Inhibitor Start: End: phenazopyridine hydrochloride 200 mg oral tablet (20 sources) Start: End: phentermine hydrochloride 37.5 mg oral capsule (1 source) Sympathomimetic Amine Anorectic Start: take 1 tablet by mouth once daily ADIPEX-P 37.5 MG CAPS One tablet by mouth daily PHENTERMINE HCL [id number] Amparo Hitchcock MD potassium chloride 20 meq powder for oral solution (20 sources) Start: End: predniSONE 50 mg oral tablet (5 sources) Corticosteroid Start: End: PREDNISONE 50 MG TABS 1 tablet every morning PREDNISONE [id number] Raghav IRENE pregabalin 75 mg oral capsule [...] on pill 3 times per day thereafter Etdmgmob-Fl-Yus-Fe-FA ( FORMULA) ORAL Tab (20 sources) Start: 011 take 1 tablet by mouth once daily Cgpochyr-Lu-Oky-Fe- FA ( FORMULA) ORAL Tab Take 1 tablet by mouth once daily. 0 03/14/2011 Active Comment on above: Take 1 tablet by ishmael once daily. Nnlwfgnp-Gvm-Vp-Fa 1 mg capsule (16 sources) Start: End: take 1 capsule by mouth once daily Iepcyueb-Ypp-Vr-Fa 1 mg capsule Discontinued 1 NMA PO DAILY April 26, 2020 12:00am August 05, 2023 11:25am promethazine hydrochloride 25 mg oral tablet (20 sources) Phenothiazine Start: End: 24 hr propranolol hydrochloride 60 mg extended release oral capsule (20 sources) beta-Adrenergic [place] Start: End: rizatriptan 10 mg oral tablet (20 sources) [...] as a single dose Start: 08-03-2022 End: 12-10-2023 Comment on above: Take 1 tablet by ishmael th as needed (at onset of headache. May repeat after 2 hours.). Do not exceed 30 mg per day. Semaglutide (18 sources) Start: 10-16-2024 End: 07-05-2025 Start: 10-16-2024 End: 07-05-2025 Semaglutide (Ozempic) 0.25 m g or 0.5 mg (2 mg/3 mL) pen injector Discontinued 0.5 mg SC EVERY WEEK October 16, 2024 1:00am July 05, 2025 5:57pm Start: 10-16-2024 Semaglutide (O zempic) 0.25 mg or 0.5 mg (2 mg/3 mL) pen injector Active 0.5 mg SC EVERY WEEK October 16, 2024 1:00am semaglutide (OZEMPIC) 0.25 mg or 0.5 mg (2 mg/3 mL) pen (20 sources) Start: 09-24-2024 End: 01-22-2025 inject 0.5 mg by subcutaneous injection every [...] Antibacterial, Sulfonamide Antimicrobial Start: 02-04-2024 End: 03-09-2024 Start: 02-04-2024 End: 03-09-2024 Sulfamethoxazole-Trimethopri m 800-160 mg tablet Discontinued 1 {tbl} PO TWICE A DAY 6 February 04, 2024 12:00am March 09, 2024 2:58pm Start: 02-04-2024 take 1 tablet by ishmael th twice daily Sulfamethoxazole-Trimethoprim Active 1 T ABLET PO TWICE A DAY 6 February 04, 2024 12:00am Start: 02-25-2019 End: 02-28-2019 Start: 02-25-2019 End: 02-28-2019 Sulfamethoxazole-Trimethopri m 1 [...] 28, 2019 12:09am SUMAtriptan 50 mg oral table t (20 sources) Serotonin-1b and Serotonin-1d Receptor Agonist Start: 08-10-2022 End: 12-28-2022 Start: 08-10-2022 End: 12-28-2022 take 1 tablet [...] sources) Antifibrinolytic Agent Start: 02-22-20 End: 01-01-20 24 hr divalproex sodium 500 mg extended [...] Problem Classification Problem Date Documented Date Episodic/Chronic Acute and unspecified renal failure (20 sources) Injury of kidney; Translations: [Acute kidney failure, unspecified] Onset: 07-15-20 25 08-10-2022 Episodic Acute bronchitis (20 sources) Acute bronchitis 07-23-2022 Episodic Anxiety disorders (20 sources) Anxiety; Translations: [Anxiety disorder, unspecified] Onset: 06-07-20 14 06-07-2014 Chronic Blindness and vision defects (19 sources) Subjective visual disturbance; Translations: [Unspecified subjective visual disturbances] 02-04-2024 Episodic Calculus of urinary tract (20 sources) Kidney stone; Translations: [Calculus of kidney] Onset: 09-04-20 22 09-04-2022 Episodic Conditions associated with dizziness or vertigo (20 sources) Lightheadedness; Translations: [Dizziness and giddiness] Onset: 09-14-20 Episodic Deficiency and other anemia (5 sources) Anemia; Translations: [Anemia, unspecified] 07-05-2025 Episodic Deficiency and other anemia (1 source) Anemia, unspecified; Translations: [Anemia, unspecified] Onset: 08-04-20 Episodic Delirium, dementia, and amnestic and other cognitive disorders (13 sources) Postconcussion syndrome; Translations: [Postconcussional syndrome] Chronic Diabetes mellitus with complications (20 sources) Type 2 diabetes mellitus; Translations: [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 kidney complication] Onset: 07-04-20 Resolved : 09-04-2010-09-2019 Chronic Diabetes mellitus without complication (12 sources) Type 2 diabetes mellitus without complications; Translations: [Diabetes mellitus without mention of complication, type II or unspecified type, not stated as uncontrolled] Onset: 07-15-20 Chronic Diseases of white blood cells (1 [...] osteoarthritis, left shoulder] Onset: 03-29-20 Chronic Other aftercare (2 sources) intermediate manager (current) use of insulin; Translations: [Type 2 diabetes mellitus without complication, with long-term current use of insulin (HCC)] Onset: 10-09-20 Episodic Other bone disease and musculoskeletal deformities [...] reading, without diagnosis of hypertension] Episodic Other circulatory disease (5 sources) Low blood pressure; Translations: [Hypotension, unspecified] 07-05-2025 Episodic Other connective tissue disease (4 sources) [...] Episodic Other ear and sense organ disorders (20 sources) Otitis externa; Translations: [Unspecified otitis externa, unspecified ear] 10-27-2023 Chronic Other gastrointestinal disorders (20 sources) Acute diarrhea; Translations: [Diarrhea, unspecified] 12-31-2019 Episodic Other hematologic conditions (1 source) Personal history of diseases of the blood and blood-forming organs and certain disorders involving the immune mechanism; Translations: [History of anemia] Onset: 07-29-20 Episodic Other injuries and conditions due to [...] : 12-09-1901-17-2023 Episodic Other nervous system disorders (20 sources) Facial paresthesia; Translations: [Paresthesia of skin] 08-09-2023 Episodic Other nervous system disorders (20 sources) Paresthesia of left lower limb; Translations: [Paresthesia of skin] 08-09-2023 Episodic Other nervous system disorders (20 sources) Paresthesia of left upper limb; Translations: [Paresthesia of skin] 08-09-2023 Episodic Other nervous system disorders (6 sources) Paresthesia of skin; Translations: [Disturbance of skin sensation] 08-07-2023 Episodic Other non-traumatic joint disorders (20 sources) Pain in left shoulder; Translations: [Left shoulder pain] Onset: 01-03-2008-10-2022 Episodic Other non-traumatic joint disorders (20 sources) Disorder of shoulder; Translations: [Other specified joint disorders, left shoulder] 06-23-2025 Episodic Other non-traumatic joint disorders (1 source) Other specified joint disorders, left shoulder; Translations: [Other specified joint disorders, left shoulder] Onset: 08-05-20 Episodic Other nutritional; endocrine; and metabolic disorders (20 sources) Obesity; Translations: [Obesity, unspecified] 08-23-2020 Chronic Other nutritional; endocrine; and metabolic disorders (2 sources) Severe obesity; Translations: [Morbid (severe) obesity due to excess calories] Chronic Other nutritional; endocrine; and metabolic disorders (17 sources) Obesity, unspecified; Translations: [Obesity, unspecified] Chronic Other upper respiratory infections (3 sources) Chronic sinusitis; Translations: [Chronic sinusitis, unspecified] Onset: 12-11-1912-11-2024 Chronic Other upper respiratory infections (20 sources) Upper respiratory infection; Translations: [Acute upper respiratory infection, unspecified] Onset: 09-04-20 Resolved : 09-04-20 22 02-04-2024 Episodic Residual codes; unclassified (20 sources) Obstructive [...] source) Amnesia; Translations: [Other amnesia] 06-07-2023 Episodic Septicemia (except in labor) (15 sources) Sepsis; Translations: [Sepsis, unspecified organism] Onset: 07-07-2007-05-2025 Episodic Spondylosis; intervertebral disc disorders; other back [...] Obesity, Class III, BMI 40-49.9 (morbid obesity) ([facility]); Translations: [Obesity, Class III, BMI 40-49.9 (morbid obesity) ([facility])] Onset: 01-03-20 Unclassified (1 source) Low back pain, unspecified; Translations: [Low back pain, unspecified] Onset: 03-22-20 Urinary tract infections (20 sources) Urinary tract infectious disease; Translations: [Urinary tract infection, site not specified] Onset: 07-07-2008-10-2022 Episodic Viral infection (20 sources) Viral disease; Translations: [Viral infection, unspecified] Onset: 09-04-20 Resolved : 09-04-2007-12-2020 Episodic Past or Other Problems Problem Classification Problem Date Documented Date Episodic/Chronic Abdominal pain (20 sources) Left sided abdominal pain; Translations: [Unspecified abdominal pain] Onset: 06-07-2025 03-02-2019 Episodic Allergic reactions (20 sources) Contact dermatitis; Translations: [Unspecified contact dermatitis, unspecified cause] Onset: 03-26-2007 Resolved: 01-23-2010 01-23-2010 Episodic Chronic obstructive pulmonary disease and bronchiectasis (3 sources) Bronchitis; Translations: [Bronchitis, not specified as acute or chronic] Onset: 12-11-2024 07-03-2024 Episodic Contraceptive and procreative management (20 sources) IUD contraception; Translations: [Presence of (intrauterine) contraceptive device] Onset: 09-09-2017 09-09-2017 Episodic Hypertension complicating ; childbirth and the puerperium (20 sources) Transient hypertension of ; Translations: [Gestational [-induced] hypertension without significant proteinuria, unspecified trimester] Onset: 06-19-2006 Resolved: 07-02-2006 07-02-2006 Episodic Other and unspecified benign neoplasm (20 [...] head, initial encounter] Onset: 11-18-2024 Episodic Other non-traumatic joint disorders (20 sources) [...] Onset: 11-09-2005 Resolved: 07-02-2006 07-02-2006 Episodic Other screening for suspected conditions (not mental disorders or infectious disease) (20 sources) Prolonged QT interval; Translations: [Abnormal electrocardiogram [ECG] [EKG]] Onset: 03-31-2020 03-31-2020 Episodic Comment on above: The patient [...] Test Name Value Interpretation Reference Range Facility MR/PAT.ANEon 09-10-2025 MR/PAT.ANE Normal [facility] Office Visit Reporton 2024 [facility] Visit [facility] Visit Reporton Cardiology Visit Report Normal [facility] Pulmonary Visit Reporton Pulmonary Visit Report Normal [facility] CNPNon 08-27-2025 [facility] GRAYTORI ELIAS ([id number]) 1980 F Date Time Provider Department 08/27/25 IVETTE GRIMES During your visit today, we recorded the following information about you: Ellie [facility] [place] Rukhsana 08/27/2025 2:32 PM Signed Tori is calling Ivette Grimes MD today to request a prior authorization on her Ozempic, per pharmacy, [facility] Please call patient with approval/denial when received Patient has been identified by name and birthdate. Person calling: self Call patient at: on cell [phone] (cell) Was an appointment scheduled: No Closing statement: Prior Authorization Calls: Thank you for calling [facility], your call will be returned within the next 24 hours or next business day. Rukhsana Ellie [facility] [place] Evon Philippe LPN 08/30/2025 12:43 PM Signed Unable to complete this electronically. Will have to via covermymeds. Evon Philippe LPN 08/30/2025 2:35 PM Signed Unable to complete also on covermymeds. PA form completed. Evon Philippe LPN 08/30/2025 2:38 PM Signed PA form signed and records faxed back. Evon Philippe LPN 09/06/2025 11:08 AM Signed Rec'd call from [employer]. PA form printed and completed for them. Evon Philippe LPN 09/06/2025 2:53 PM Signed [employer] signed. All has been faxed. Allergies As of Date: 08/27/2025 Noted Allergy Reaction FARXIGA (DAPAGLIFLOZIN) 08/05/2024 8 - GI Upset LIDOCAINE 12/24/2019 4 - Hives METFORMIN 08/05/2024 8 - GI Upset STEROIDS (BETAMETHASONE DIPROPION* 2 4 - Hives Date Reviewed: 08/04/2025 Reviewed by: Queener, Fatuma, PA-C - Fully Assessed Reason for Visit: Insurance Authorization [[id number]] Prescriptions as of 09/08/2025 - semaglutide (OZEMPIC) 2 mg/dose (8 mg/3 mL) pen injector Inject 2 mg subcutaneously one time a week. - tiZANidine (ZANAFLEX) 4 mg tablet Take 1 tablet by mouth every 8 hours as needed (muscle spasms). - topiramate (TOPAMAX) 50 mg tablet Take 1 tablet by mouth daily at bedtime. - lisinopril (ZESTRIL) 10 mg tablet Take 1 tablet by mouth once daily. - insulin glargine (LANTUS SOLOSTAR U-100 INSULIN) 100 unit/mL (3 mL) Inject 10 Units subcutaneously daily at bedtime. - omeprazole (PRILOSEC) 20 mg capsule Take 1 capsule by mouth daily before breakfast. 1/2 hr before meal. - ondansetron (ZOFRAN) 4 mg tablet Take 1 tablet by mouth every 8 hours as needed for nausea/vomiting. - FLUoxetine (PROZAC) 20 mg capsule Take 1 capsule by mouth once daily. - gabapentin (NEURONTIN) 300 mg capsule Take 1 capsule by mouth once daily for 180 days. - albuterol HFA (VENTOLIN HFA) 90 mcg/actuation inhaler Inhale 2 Puffs as instructed every 4 hours as needed for wheezing/shortness of breath. - rimegepant (NURTEC ODT) 75 mg disintegrating [...] tablet by mouth once daily. - Ipratropium [place] (ATROVENT) 21 mcg (0.03 %) nasal spray [...] DM - Controlled E11.9 Insulin: No - Girjffjr-Gt-Hia-Fe- FA tab Take 1 tablet by mouth once daily. Meds Comments as of 03/01/2019: Percocet March 01, 2019 Stephanie Suresh RN Problem List As Of Date 08/27/2025 Noted Resolved SUPERVIS NORMAL 1ST PREG [Z34.00] [...] 05/06/2009 01/23/2010 Routine general medical examination at [facility]*01/23/2010 12/06/2012 Class: Chronic Routine gynecological examination [Z01.419] 01/23/2010 02/22/2014 Class: Chronic Morbid obesity (HCC) [E66.01] 01/23/2010 06/07/2025 Lumbar Disc Disorder [M51.9] 02/16/2010 Routine general medical examination at [facility]*12/06/2012 02/22/2014 Anxiety [F41 (more content not included)... Normal [facility] MR/BMS.Maite 08-27-2025 [facility] ---- TORI GRAY ([id number]) 1980 F Date Time Provider Department 08/13/25 IVETTE GRIMES During your visit today, we recorded the following information about you: Nirmala Storey LPN 08/13/2025 8:55 AM Signed Urine culture scanned in today. Scan on 08/13/2025 7:34 AM by Provider, JONNY Powell: Microbiology Ivette Grimes MD 08/13/2025 9:58 AM Signed Culture is positive for uti. The macrobid she was given should cover it. Nirmala Storey LPN 08/13/2025 10:53 AM Signed [employer] message sent to patient. Allergies As of Date: 08/13/2025 Noted Allergy Reaction FARXIGA (DAPAGLIFLOZIN) 08/05/2024 8 - GI Upset LIDOCAINE 12/24/2019 4 - Hives METFORMIN 08/05/2024 8 - GI Upset STEROIDS (BETAMETHASONE DIPROPION* 2 4 - Hives Date Reviewed: 08/04/2025 Reviewed by: Fatuma Beckford PA-C - Fully Assessed Reason for Visit: Results [95] Prescriptions as of 08/13/2025 - nitrofurantoin monohydrate and macrocrystal (MACROBID) 100 mg capsule Take 1 capsule by mouth two times a day with meals for 5 days. - tiZANidine (ZANAFLEX) 4 mg tablet Take 1 tablet by mouth every 8 hours as needed (muscle spasms). - topiramate (TOPAMAX) 50 mg tablet Take 1 tablet by mouth daily at bedtime. - lisinopril (ZESTRIL) 10 mg tablet Take 1 tablet by mouth once daily. - insulin glargine (LANTUS SOLOSTAR U-100 INSULIN) 100 unit/mL (3 mL) Inject 10 Units subcutaneously daily at bedtime. - omeprazole (PRILOSEC) 20 mg capsule Take [...] mouth once daily for 180 days. - albuterol HFA (VENTOLIN HFA) 90 mcg/actuation inhaler Inhale 2 Puffs as instructed every 4 hours as needed for wheezing/shortness of breath. - rimegepant (NURTEC ODT) 75 mg disintegrating [...] tablet by mouth once daily. - Ipratropium [place] (ATROVENT) 21 mcg (0.03 %) nasal spray [...] DM - Controlled E11.9 Insulin: No - Daciagzs-Mg-Mgq-Fe- FA tab Take 1 tablet by mouth once daily. Meds Comments as of 03/01/2019: Percocet March 01, 2019 Stephanie Shainoff, RN Problem List As Of Date 08/13/2025 Noted Resolved SUPERVIS NORMAL 1ST PREG [Z34.00] [...] 05/06/2009 01/23/2010 Routine general medical examination at [facility]*01/23/2010 12/06/2012 Class: Chronic Routine gynecological examination [Z01.419] 01/23/2010 02/22/2014 Class: Chronic Morbid obesity (HCC) [E66.01] 01/23/2010 06/07/2025 Lumbar Disc Disorder [M51.9] 02/16/2010 Routine general medical examination at [facility]*12/06/2012 02/22/2014 Anxiety [F41.9] 06/07/2014 Type 2 [...] Headache [R51] 09/04/2022 09/04/2022 Herniation of lumbar interverteb (more content not included)... Normal [facility] Urine Cultureon 08-13-2025 URC Normal [facility] Comment on above: Performed By: #### L 400.0001, L100.0100, L501.9985, M100.2200 ####[facility] [address] [place], [address] CBC W/Diff, Automatedon Absolute Lymph 3.56 X10 3/uL Normal 0.83-4.51 [facility] Comment on above: Performed By: #### L 400.0001, L100.0100, L501.9985, M100.2200 ####[facility] [address] [place], [address] Absolute Neut 5.6 X10 3/uL Normal 2.0-7.7 [facility] Comment on above: Performed By: #### L 400.0001, L100.0100, L501.9985, M100.2200 ####[facility] [address] [place], [address] Basophils/100 WBC (Bld) 0.8 % Normal 0-1 [facility] Comment on above: Performed By: #### L 400.0001, L100.0100, L501.9985, M100.2200 ####[facility] [address] [place], [address] Eosinophils/100 WBC (Bld) 1.7 % Normal 0-5 [facility] Comment on above: Performed By: #### L 400.0001, L100.0100, L501.9985, M100.2200 ####[facility] [address] [place], [address] Erythrocyte distribution width (RBC) [Ratio] 13.7 % Normal 11.6-14.6 [facility] Comment on above: Performed By: #### L 400.0001, L100.0100, L501.9985, M100.0 ####[facility] [address] [place], [address] Hematocrit (Bld) [Volume fraction] 39.7 % Normal 37-47 [facility] Comment on above: Performed By: #### L 400.0001, L100.0100, L501.9985, M100.0 ####[facility] [address] [place], [address] Hemoglobin (Bld) [Mass/Vol] 13.3 g/dL Normal 12.0-15.0 [facility] Comment on above: Performed By: #### L 400.0001, L100.0100, L501.9985, M1.0 ####[facility] [address] [place], [address] IG% 1.300 High 0.0-0.9 [facility] Comment on above: Result Comment: IG% - Immature Granulocytes (promyelocytes, myelocytes andmetamyelocytes) > 1% indicates that a LEFT SHIFT is Present. Performed By: #### L 400.0001, L100.0100, L501.9985, M100.2200 ####[facility] [address] [place], [address] Lymphocytes/100 WBC (Bld) 35.6 % Normal 19-41 [facility] Comment on above: Performed By: #### L 400.0001, L100.0100, L501.9985, M100.2200 ####[facility] [address] [place], [address] MCH (RBC) [Entitic mass] 30.7 pg Normal 27.0-32.0 [facility] Comment on above: Performed By: #### L 400.0001, L100.0100, L501.9985, M100.2200 ####[facility] [address] [place], [address] MCHC (RBC) [Mass/Vol] 33.5 g/dL Normal 32-36 [facility] Comment on above: Performed By: #### L 400.0001, L100.0100, L501.9985, M100.2200 ####[facility] [address] [place], [address] MCV (RBC) [Entitic vol] 91.7 fL Normal 81-99 [facility] Comment on above: Performed By: #### L 400.0001, L100.0100, L501.9985, M100.2200 ####[facility] [address] [place], [address] Monocytes/100 WBC (Bld) 4.8 % Normal 0-10 [facility] Comment on above: Performed By: #### L 400.0001, L100.0100, L501.9985, M100.2200 ####[facility] [address] [place], [address] Neutrophils/100 WBC (Bld) 55.8 % Normal 47-70 [facility] Comment on above: Performed By: #### L 400.0001, L100.0100, L501.9985, M100.2200 ####[facility] [address] [place], [address] Nucleated RBC (Bld) [#/Vol] 0 10*3/uL Normal 0-5 [facility] Comment on above: Performed By: #### L 400.0001, L100.0100, L501.9985, M100.2200 ####[facility] [address] [place], [address] Platelet mean volume (Bld) [Entitic vol] 9.3 fL Normal 6.2-12.0 [facility] Comment on above: Performed By: #### L 400.0001, L100.0100, L501.9985, M100.2200 ####[facility] [address] [place], [address] Platelets (Bld) [#/Vol] 219 10*3/uL Normal 150-450 [facility] Comment on above: Performed By: #### L 400.0001, L100.0100, L501.9985, M100.2200 ####[facility] [address] [place], [address] RBC (Bld) [#/Vol] 4.33 10*6/uL Normal 4.2-5.4 [facility] Comment on above: Performed By: #### L 400.0001, L100.0100, L501.9985, M100.2200 ####[facility] [address] [place], [address] RDW SD 46.5 fl High 35.1-43.9 [facility] Comment on above: Performed By: #### L 400.0001, L100.0100, L501.9985, M100.2200 ####[facility] [address] [place], [address] WBC (Bld) [#/Vol] 10.0 10*3/uL Normal 4.4-11.0 [facility] Comment on above: Performed By: #### L 400.0001, L100.0100, L501.9985, M100.2200 ####[facility] [address] [place], [address] Hany 08-11-2025 TAYLER Telephone (FAMPWS) ---- TORI GRAY ([id number]) 1980 F Date Time Provider Department 08/11/25 IVETTE GRIMES During your visit today, we recorded the following information about you: Annel Bundy RN 08/11/2025 12:45 PM Signed Patient calls as she forgot to mention to provider with last visit that the kidney stone she has grew from 4 mm to 10 mm. Patient thought that might be of importance as she is able to see some of her results of labs and urine completed at [facility] and she feels that she is heading back to having a urinary tract infection and thought maybe the kidney stone was contributing and asking what next steps for the kidney stone should be. Patient reports she does have flank pain still as well. Patient aware once we receive results she will be contacted with provider message. PEPE Linares William J, MD 08/11/2025 12:51 PM Signed Did she have ct done at [facility]. If so, can we get it. Annel Bundy RN 08/11/2025 1:[address] was completed at [facility] at last hospital visit. I am not able to pull records. Messaged providers nurse to see if they are able to. PEPE Linares Tara, LPN 08/11/2025 1:[address] on desk for review. Labs are now also scanned into chart that provider has ordered. Ivette Grimes MD 08/11/2025 3:14 PM Signed I got ct. Shows mild left sided hydronephrosis and perinephric fat stranding. I would refer to urology Push fluids. I can cover with an antibiotic for five days also Nirmala Storey LPN 08/11/2025 3:31 PM Signed Patient is notified. She is going to go back to see Dr Christensen. That is who she has seen in the past for her kidney stone issues. Referral entered for patient to see Dr Christensen. Allergies As of Date: 08/11/2025 Noted Allergy Reaction FARXIGA (DAPAGLIFLOZIN) 08/05/2024 8 - GI Upset LIDOCAINE 12/24/2019 4 - Hives METFORMIN 08/05/2024 8 - GI Upset STEROIDS (BETAMETHASONE DIPROPION* 2 4 - Hives Date Reviewed: 08/04/2025 Reviewed by: Fatuma Beckford PA-C - Fully Assessed Reason for Visit: Patient Update [1234] Primary Visit Diagnosis:Kidney stone [N20.0] Other Visit Diagnosis:Hydroneph rosis of left kidney [N13.30] Order(s):CONSULT TO UROLOGY [9041] Order #: [id number]: 1 FUTURE nitrofurantoin monohydrate and macrocrystal (MACROBID) 100 mg capsuleTake 1 capsule by mouth two times a day with meals for 5 days.Disp: 10 capsuleRfl: 0 Prescriptions as of 08/11/2025 - nitrofurantoin monohydrate and macrocrystal (MACROBID) 100 mg capsule Take 1 capsule by mouth two times a day with meals for 5 days. - tiZANidine (ZANAFLEX) 4 mg tablet Take 1 tablet by mouth every 8 hours as needed (muscle spasms). - topiramate (TOPAMAX) 50 mg tablet Take 1 tablet by mouth daily at bedtime. - lisinopril (ZESTRIL) 10 mg tablet Take 1 tablet by mouth once daily. - insulin glargine (LANTUS SOLOSTAR U-100 INSULIN) 100 unit/mL (3 mL) Inject 10 Units subcutaneously daily at bedtime. - omeprazole (PRILOSEC) 20 mg capsule Take [...] mouth once daily for 180 days. - albuterol HFA (VENTOLIN HFA) 90 mcg/actuation inhaler Inhale 2 Puffs as instructed every 4 hours as needed for wheezing/shortness of breath. - rimegepant (NURTEC ODT) 75 mg disintegrating [...] tablet by mouth once daily. - Ipratropium [place] (ATROVENT) 21 mcg (0.03 %) nasal spray [...] DM - Controlled E11.9 Insulin: No - Maacnswh-Ht-Jfj-Fe- FA tab Take 1 tablet by mouth once daily. Meds Comments as of 03/01/2019: Percocet March 01, 2019 Stephanie Suresh RN Problem List As Of Date 08/11/2025 (more content not included)... Normal [facility] Hemoglobin A1con 08-11-2025 HbA1c (Bld) [Mass fraction] 6.8 % High <=5.6 [facility] Comment on above: Result Comment: Norm al < 5.7 % Prediabetic 5.7 - 6.4 % Diabetic >or= 6.5 % Please note range changes. Performed By: #### L 400.0001, L100.0100, L501.9985, M100.2200 ####[facility] [address] [place], [place], [id number] Urinalysis, Completeon 08-11 RBC 0-5 SEEN Normal 0-5 [facility] Comment on above: Order Comment: Urine , Random Performed By: #### L 400.0001, L100.0100, L501.9985, M100.2200 ####[facility] [address] [place], [address] BACTERIA 2+ /hpf Normal None Seen [facility] Comment on above: Order Comment: Urine , Random Performed By: #### L 400.0001, L100.0100, L501.9985, M100.2200 ####[facility] [address] [place], [address] EPI,SQUAMOUS 10-25 SEEN Normal 5-10 [facility] Comment on above: Order Comment: Urine , Random Performed By: #### L 400.0001, L100.0100, L501.9985, M100.2200 ####[facility] [address] [place], [address] WBC 10-25 SEEN Normal 0-5 [facility] Comment on above: Order Comment: Urine , Random Performed By: #### L 400.0001, L100.0100, L501.9985, M100.2200 ####[facility] [address] [place], [address] Mucus Ql (Urine sed) 0 SEEN Normal [facility] Comment on above: Order Comment: Urine , Random Performed By: #### L 400.0001, L100.0100, L501.9985, M100.2200 ####[facility] [address] [place], [address] CNPNon 08-09-2025 GABRIELAN Telephone ([facility]) ---- TORI GRAY ([id number]) 1980 F Date Time Provider Department 08/09/25 IVETTE GRIMES During your visit today, we recorded the following information about you: Priscila France RN 08/09/2025 8:27 AM Signed Pt called in requesting to have her labs faxed over [facility]. Faxed to the lab at # [phone]. Priscila France RN Allergies As of Date: 08/09/2025 Noted Allergy Reaction FARXIGA (DAPAGLIFLOZIN) 08/05/2024 8 - GI Upset LIDOCAINE 12/24/2019 4 - Hives METFORMIN 08/05/2024 8 - GI Upset STEROIDS (BETAMETHASONE DIPROPION* 2 4 - Hives Date Reviewed: 08/04/2025 Reviewed by: Fatuma Beckford PA-C - Fully Assessed Reason for Visit: Fax Labs [Other] Prescriptions as of 08/09/2025 - topiramate (TOPAMAX) 50 mg tablet Take 1 tablet by mouth daily at bedtime. - lisinopril (ZESTRIL) 10 mg tablet Take 1 tablet by mouth once daily. - insulin glargine (LANTUS SOLOSTAR U-100 INSULIN) 100 unit/mL (3 mL) Inject 10 Units subcutaneously daily at bedtime. - omeprazole (PRILOSEC) 20 mg capsule Take [...] mouth once daily for 180 days. - albuterol HFA (VENTOLIN HFA) 90 mcg/actuation inhaler Inhale 2 Puffs as instructed every 4 hours as needed for wheezing/shortness of breath. - rimegepant (NURTEC ODT) 75 mg disintegrating [...] tablet by mouth once daily. - Ipratropium [place] (ATROVENT) 21 mcg (0.03 %) nasal spray [...] DM - Controlled E11.9 Insulin: No - Pufdybwa-Cj-Tmf-Fe- FA tab Take 1 tablet by mouth once daily. Meds Comments as of 03/01/2019: Percocet March 01, 2019 Stephanie Suresh RN Problem List As Of Date 08/09/2025 Noted Resolved SUPERVIS NORMAL 1ST PREG [Z34.00] [...] general medical examination at a [facility]*01/23/2010 12/06/2012 Class: Chronic Routine gynecological examination [Z01.419] 01/23/2010 02/22/2014 Class: Chronic Morbid obesity (HCC) [E66.01] 01/23/2010 06/07/2025 Lumbar Disc Disorder [M51.9] 02/16/2010 Routine general medical examination at a [facility]*12/06/2012 02/22/2014 Anxiety [F41.9] 06/07/2014 Type 2 diabetes [...] 09/04/2022 Pain of left scapula [M89.8X1] 09/04/2022 09/04/2022 (more content not included)... Normal [facility] Orthopedic Visit Reporton Orthopedic Visit Report Normal [facility] CNOVon 08-04-2025 CNOV Office Visit (NEMOWS) ---- TORI GRAY ([id number]) 1980 F Date Time Provider Department 08/04/25 4:30 PM FATUMA BECKFORD During your visit today, we recorded the following information about you: Pulse Respiration Blood pressure Weight 82/minute 18/minute 121/71 123.5 kg Fatuma Beckford PA-C 08/04/2025 5:00 PM Signed Follow-Up Onabotulinum Toxin A (BotoxTM) for Migraine Indication: Chronic Intractable Migraine Treatment #: 7 Referral Expiration: 11/03/2025 Prior to the initiation of the FIRST treatment with Onabotulinum Toxin A, the patient reported the following average headache frequency over the past 3 MONTHS: Number of moderate-severe migraine days/month: 30 (daily) Number of mild migraine days/month: 0 Number of headache free days/month: 0 (0 headache-free hours) Migraine severity: 8/10 The patient has been assessed for disorders which could contribute to breathing or swallowing difficulty, and there is no contraindication with PREEMPT Botox. There is no documented allergic reaction/hypersensi tivity to any botulinum toxin and there is no active infection at proposed injection site. HEADACHE SCORES: 06/05/2025 07/13/2025 07/28/2025 VAHE - 2/7 SCORES VAHE-2 Score 0 0 0 VAHE-7 Score 0 2 0 07/13/2025 07/03/2024 06/03/2024 PHQ-9 Score 7 1 5 BP 121/71 Pulse 82 Resp 18 Wt 123.5 kg (272 lb 3.2 oz) LMP (LMP Unknown) SpO2 97% BMI 42.63 kg/m? Patient name: Tori Gray : 1980 ALLERGIES Allergen Reactions Farxiga [Dapagliflo* GI Upset Lidocaine Hives Metformin GI Upset Steroids [Betametha* Hives UNIVERSAL PROTOCOL / SAFETY CHECKLIST Procedure: Onabotulinum toxin A for migraine Informed Consent Consent Obtained: Written [place] Protocol A moment to CARE was completed SIGN IN Personnel directly involved with the procedure wore the appropriate PPE Special Equipment: N/A Patient/Surrogate Stated/Verified: Patient name, Date of , Relevant allergies and Intended procedure TIME OUT No relevant labs, photos, and/or imaging studies were applicable for review. Consent documented and matches the intended procedure No correct side/site applicable for marking and visibility. No medications required for procedure. No fire risk assessment and interventions applicable. No implant(s) inserted. SIGN OUT No specimen collected. Written Consent Obtained: Written LOT #: [id number] Expiration Date: Month: Year: 2026 Second vial: LOT #: [id number] Expiration Date: Month: Year: 2026 Injection Sites Left (Units) Left (Sites) Right (Units) Right (Sites) TOTAL (Units) [employer] 5 1 5 1 10 Procerus Units: [...] Zomig Rizatriptan Imitrex Amerge Patient presents for 7th round of botox, tolerated procedure well without complications. Patient continuing to take topiramate and Nurtec 75mg for onset of headache, works well. Will return in 12 weeks for repeat botox therapy. Last botox lasted a long time this time, worsened over the spring. Now getting one a week and not severe. But did have some times where they were daily. Depakote bridge did help in the summer. Then had shoulder surgery and caused YUAN to worsen. Would like to wean down on TPM, will decrease 50mg every 2-3 weeks until stop. JONNY Mary Melanie, PA-C 08/04/2025 4:40 PM Signed Decrease topiramate to 150mg (three tablets) at bedtime Follow up for botox on 11/03/25. Fatuma Beckford PA-C 08/11/2025 3:34 PM Signed Addended by: FATUMA BECKFORD on: 08/11/2025 03:34 PM Modules accepted: Orders Referring Provider: AMANDA ARTEAGA [[id number]] Allergies As of Date: 08/04/2025 Noted Allergy Reaction FARXIGA (DAPAGLIFLOZIN) 08/05/2024 8 - GI Upset LIDOCAINE 12/24/2019 4 - Hives METFORMIN 08/05/2024 8 - GI Upset STEROIDS (BETAMETHASONE DIPROPION* 2 4 - Hives Date Reviewed: 08/04/2025 Reviewed by: Fatuma Beckford PA-C - Fully Assessed Reason for Visit: Follow Up [171] Cmt: botox Primary Visit Diagnosis:Intractab le chronic migraine without aura and with status migrainosus [G43.711] Order(s):[] onabotulinum toxin type A 200 Units injection (BOTOX)Disp: Rfl: topiramate (TOPAMAX) 50 mg tabletTake 1 tablet by mouth daily at bedtime.Disp: 90 tabletRfl: 2 [] onabotulinum toxin type A 200 Units injection (BOTOX)Disp: Rfl: Prescriptions as of 08/11/2025 - nitrofurantoin monohydrate and macrocrystal (MACROBID) 100 mg capsule Take 1 capsule by mouth two times a day with meals for 5 day (more content not included)... Normal [facility] Hany 07-29-2025 GABRIELAN Telephone (FAMPWS) ---- TORI GRAY ([id number]) 1980 F Date Time Provider Department 07/29/[facility] During your visit today, we recorded the following information about you: Little Murphy MA 07/29/2025 5:36 PM Signed Ivette Grimes MD P [facility] Send over order for ua and C and S to be done now and blood work to be done in 8 weeks to [facility]. Thanks. WL Little Murphy MA 07/29/2025 5:36 PM Signed Orders faxed to [facility] Allergies As of Date: 07/29/2025 Noted Allergy Reaction FARXIGA (DAPAGLIFLOZIN) 08/05/2024 8 - GI Upset LIDOCAINE 12/24/2019 4 - Hives METFORMIN 08/05/2024 8 - GI Upset STEROIDS (BETAMETHASONE DIPROPION* 2 4 - Hives Date Reviewed: 07/15/2025 Reviewed by: Little Murphy MA - Fully Assessed Reason for Visit: Orders [681] Prescriptions as of 07/29/2025 - lisinopril (ZESTRIL) 10 mg tablet Take 1 tablet by mouth once daily. - topiramate (TOPAMAX) 100 mg tablet Take 1 tablet by mouth two times a day. - insulin glargine (LANTUS SOLOSTAR U-100 INSULIN) 100 unit/mL (3 mL) Inject 10 Units subcutaneously daily at bedtime. - omeprazole (PRILOSEC) 20 mg capsule Take [...] mouth once daily for 180 days. - albuterol HFA (VENTOLIN HFA) 90 mcg/actuation inhaler Inhale 2 Puffs as instructed every 4 hours as needed for wheezing/shortness of breath. - rimegepant (NURTEC ODT) 75 mg disintegrating [...] tablet by mouth once daily. - Ipratropium [place] (ATROVENT) 21 mcg (0.03 %) nasal spray [...] DM - Controlled E11.9 Insulin: No - Mmbvulqr-Vy-Lno-Fe- FA tab Take 1 tablet by mouth once daily. Meds Comments as of 03/01/2019: Percocet March 01, 2019 Stephanie Suresh RN Problem List As Of Date 07/29/2025 Noted Resolved SUPERVIS NORMAL 1ST PREG [Z34.00] [...] 05/06/2009 01/23/2010 Routine general medical examination at [facility]*01/23/2010 12/06/2012 Class: Chronic Routine gynecological examination [Z01.419] 01/23/2010 02/22/2014 Class: Chronic Morbid obesity (HCC) [E66.01] 01/23/2010 06/07/2025 Lumbar Disc Disorder [M51.9] 02/16/2010 Routine general medical examination at [facility]*12/06/2012 02/22/2014 Anxiety [F41.9] 06/07/2014 Type 2 [...] [G43.909] 09/04/2022 Muscle pain [M79.10] 09/04/2022 09/04/2022 (more content not included)... Normal [facility] Absolute lymphocyte countOrd ered By: Ivette Patinoo on 07-23-2025 Lymphocytes Auto (Unsp spec) [#/Vol] 2.44 10*3/uL 0.83-4.51 [facility] Anion gap in Serum or Plasma Ordered By: Ivette Patinoo on 07-23-2025 Anion gap [Moles/Vol] 14 mmol/L 03-18 [facility] Automated lymphocyte count a s percentage of total leukocytesOrdered By: Ivette Patinoo on 07-23-2025 Lymphocytes/100 WBC Auto (Unsp spec) 29.6 % [facility] BUN/creatinine ratioOrdered By: Ivette Grimes on 07-23-2025 Urea nitrogen/Creatinine [Mass ratio] 14.1 mg/mg 08-23 [facility] Basic Metabolic Profile (BMP )on 07-23-2025 BUN/CRE 14.1 RATIO Normal 08-23 [facility] Comment on above: Performed By: #### L 503.6030, L100.0100, L503.6550, L500.2500, L503.0106, L506.0200 ####[facility] [address] [place], [address] Calcium [Mass/Vol] 8.9 mg/dL Normal 7.6-11.0 [facility] Comment on above: Performed By: #### L 503.6030, L100.0100, L503.6550, L500.2500, L503.0106, L506.0200 ####[facility] [address] [place], [address] Chloride [Moles/Vol] 104 mmol/L Normal 98-108 [facility] Comment on above: Performed By: #### L 503.6030, L100.0100, L503.6550, L500.2500, L503.0106, L506.0200 ####[facility] [address] [place], [address] CO2 [Moles/Vol] 18.9 mmol/L Low 21.0-32.0 [facility] Comment on above: Performed By: #### L 503.6030, L100.0100, L503.6550, L500.2500, L503.0106, L506.0200 ####[facility] [address] [place], [address] Creatinine [Mass/Vol] 0.89 mg/dL Normal 0.70-1.20 [facility] Comment on above: Performed By: #### L 503.6030, L100.0100, L503.6550, L500.2500, L503.0106, L506.0200 ####[facility] [address] [place], [address] GAP 14 Normal 5-15 [facility] Comment on above: Performed By: #### L 503.6030, L100.0100, L503.6550, L500.2500, L503.0106, L506.0200 ####[facility] [address] [place], [address] GFR/1.73 sq M.predicted among non-blacks MDRD (S/P/Bld) [Vol rate/Area] 82 mL/min/{1.73_m2} Normal >60 [facility] Comment on above: Result Comment: mL/m in/1.73m2 CKD-EPI Creatinine Equation (2020) Performed By: #### L 503.6030, L100.0100, L503.6550, L500.2500, L503.0106, L506.0200 ####[facility] [address] [place], [address] Glucose [Mass/Vol] 145 mg/dL High 70-99 [facility] Comment on above: Performed By: #### L 503.6030, L100.0100, L503.6550, L500.2500, L503.0106, L506.0200 ####[facility] [address] [place], [address] Potassium [Moles/Vol] 3.9 mmol/L Normal 3.3-5.1 [facility] Comment on above: Performed By: #### L 503.6030, L100.0100, L503.6550, L500.2500, L503.0106, L506.0200 ####[facility] [address] [place], [address] Sodium [Moles/Vol] 137 mmol/L Normal 133-145 [facility] Comment on above: Performed By: #### L 503.6030, L100.0100, L503.6550, L500.2500, L503.0106, L506.0200 ####[facility] [address] [place], [address] Urea nitrogen [Mass/Vol] 13 mg/dL Normal 4-19 [facility] Comment on above: Performed By: #### L 503.6030, L100.0100, L503.6550, L500.2500, L503.0106, L506.0200 ####[facility] [address] [place], [address] Basophil percentageOrdered B y: Ivette Grimes on 07-23-2025 Basophils/100 WBC (Bld) 0.8 % 0-1 [facility] CBC W/Diff, Automatedon 07-05 Absolute Lymph 2.44 X10 3/uL Normal 0.83-4.51 [facility] Comment on above: Performed By: #### L 503.6030, L100.0100, L503.6550, L500.2500, L503.0106, L506.0200 ####[facility] [address] [place], [address] Absolute Neut 5.1 X10 3/uL Normal 2.0-7.7 [facility] Comment on above: Performed By: #### L 503.6030, L100.0100, L503.6550, L500.2500, L503.0106, L506.0200 ####[facility] [address] [place], [address] Basophils/100 WBC (Bld) 0.8 % Normal 0-1 [facility] Comment on above: Performed By: #### L 503.6030, L100.0100, L503.6550, L500.2500, L503.0106, L506.0200 ####[facility] [address] [place], [address] Eosinophils/100 WBC (Bld) 1.5 % Normal 0-5 [facility] Comment on above: Performed By: #### L 503.6030, L100.0100, L503.6550, L500.2500, L503.0106, L506.0200 ####[facility] [address] [place], [address] Erythrocyte distribution width (RBC) [Ratio] 13.2 % Normal 11.6-14.6 [facility] Comment on above: Performed By: #### L 503.6030, L100.0100, L503.6550, L500.2500, L503.0106, L506.0200 ####[facility] [address] [place], [address] Hematocrit (Bld) [Volume fraction] 38.1 % Normal 37-47 [facility] Comment on above: Performed By: #### L 503.6030, L100.0100, L503.6550, L500.2500, L503.0106, L506.0200 ####[facility] [address] [place], [address] Hemoglobin (Bld) [Mass/Vol] 12.7 g/dL Normal 12.0-15.0 [facility] Comment on above: Performed By: #### L 503.6030, L100.0100, L503.6550, L500.2500, L503.0106, L506.0200 ####[facility] [address] [place], [address] IG% 1.100 High 0.0-0.9 [facility] Comment on above: Result Comment: IG% - Immature Granulocytes (promyelocytes, myelocytes andmetamyelocytes) > 1% indicates that a LEFT SHIFT is Present. Performed By: #### L 503.6030, L100.0100, L503.6550, L500.2500, L503.0106, L506.0200 ####[facility] [address] [place], [address] Lymphocytes/100 WBC (Bld) 29.6 % Normal 19-41 [facility] Comment on above: Performed By: #### L 503.6030, L100.0100, L503.6550, L500.2500, L503.0106, L506.0200 ####[facility] [address] [place], [address] MCH (RBC) [Entitic mass] 31.5 pg Normal 27.0-32.0 [facility] Comment on above: Performed By: #### L 503.6030, L100.0100, L503.6550, L500.2500, L503.0106, L506.0200 ####[facility] [address] [place], [address] MCHC (RBC) [Mass/Vol] 33.3 g/dL Normal 32-36 [facility] Comment on above: Performed By: #### L 503.6030, L100.0100, L503.6550, L500.2500, L503.0106, L506.0200 ####[facility] [address] [place], [address] MCV (RBC) [Entitic vol] 94.5 fL Normal 81-99 [facility] Comment on above: Performed By: #### L 503.6030, L100.0100, L503.6550, L500.2500, L503.0106, L506.0200 ####[facility] [address] [place], [address] Monocytes/100 WBC (Bld) 5.0 % Normal 0-10 [facility] Comment on above: Performed By: #### L 503.6030, L100.0100, L503.6550, L500.2500, L503.0106, L506.0200 ####[facility] [address] [place], [address] Neutrophils/100 WBC (Bld) 62.0 % Normal 47-70 [facility] Comment on above: Performed By: #### L 503.6030, L100.0100, L503.6550, L500.2500, L503.0106, L506.0200 ####[facility] [address] [place], [address] Nucleated RBC (Bld) [#/Vol] 0 10*3/uL Normal 0-5 [facility] Comment on above: Performed By: #### L 503.6030, L100.0100, L503.6550, L500.2500, L503.0106, L506.0200 ####[facility] [address] [place], [address] Platelet mean volume (Bld) [Entitic vol] 9.3 fL Normal 6.2-12.0 [facility] Comment on above: Performed By: #### L 503.6030, L100.0100, L503.6550, L500.2500, L503.0106, L506.0200 ####[facility] [address] [place], [address] Platelets (Bld) [#/Vol] 240 10*3/uL Normal 150-450 [facility] Comment on above: Performed By: #### L 503.6030, L100.0100, L503.6550, L500.2500, L503.0106, L506.0200 ####[facility] [address] [place], [address] RBC (Bld) [#/Vol] 4.03 10*6/uL Low 4.2-5.4 [facility] Comment on above: Performed By: #### L 503.6030, L100.0100, L503.6550, L500.2500, L503.0106, L506.0200 ####[facility] [address] [place], [address] RDW SD 45.7 fl High 35.1-43.9 [facility] Comment on above: Performed By: #### L 503.6030, L100.0100, L503.6550, L500.2500, L503.0106, L506.0200 ####[facility] [address] [place], [address] WBC (Bld) [#/Vol] 8.3 10*3/uL Normal 4.4-11.0 [facility] Comment on above: Performed By: #### L 503.6030, L100.0100, L503.6550, L500.2500, L503.0106, L506.0200 ####[facility] [address] [place], [address] Carbon dioxide, total [Moles /volume] in Central venous bloodOrdered By: Ivette Grimes on 07-23-2025 CO2 [Moles/Vol] 18.9 mmol/L Low 21.0-32.0 [facility] Chloride assayOrdered By: Regina Grimes on 07-23-2025 Chloride [Moles/Vol] 104 mmol/L 98-108 [facility] Eosinophil percentageOrdered By: Ivette Grimes on 07-23-2025 Eosinophils/100 WBC (Bld) 1.5 % 0-5 [facility] Erythrocyte distribution wid th ratioOrdered By: Ivette Grimes on 07-23-2025 Erythrocyte distribution width (RBC) [Ratio] 13.2 % 11.6-14.6 [facility] Erythrocyte distribution wid th standard deviationOrdered By: Ivette Grimes on 07-23-2025 Erythrocyte distribution width (RBC) [Ratio] 45.7 fl High 35.1-43.9 [facility] Ferritinon 07-23-2025 Ferritin [Mass/Vol] 291 ng/mL Normal 22-378 [facility] Comment on above: Performed By: #### L 503.6030, L100.0100, L503.6550, L500.2500, L503.0106, L506.0200 ####[facility] [address] [place], [address] Folate [Mass/volume] in Seru m or PlasmaOrdered By: Ivette Grimes on 07-23-2025 Folate [Mass/Vol] 12.60 ng/mL 4.60-34.80 [facility] Folates,Serum (Folic Acid)on 07-23-2025 FOLATES,SERUM 12.60 ng/mL Normal 4.60-34.80 [facility] Comment on above: Order Comment: N Performed By: #### L 503.6030, L100.0100, L503.6550, L500.2500, L503.0106, L506.0200 ####[facility] [address] [place], [address] Glomerular filtration rate ( GFR) estimation/1.73 sq m using serum, plasma, or whole bOrdered By: Ivette Grimes on 07-23-2025 GFR/1.73 sq M.predicted among non-blacks MDRD (S/P/Bld) [Vol rate/Area] 82 mL/min/{1.73_m2} >60 [facility] Hematocrit Auto (Bld) [Volum e fraction]Ordered By: Ivette Grimes on 07-23-2025 Hematocrit (Bld) [Volume fraction] 38.1 % 37-47 [facility] Hemoglobin measurementOrdere d By: Ivette Grimes on 07-23-2025 Hemoglobin (Bld) [Mass/Vol] 12.7 g/dL 12.0-15.0 [facility] Immature granulocytes/100 WB C Auto (Bld)Ordered By: Ivette Grimes on 07-23-2025 Immature granulocytes/100 WBC (Bld) 1.100 % High 0.0-0.9 [facility] Iron measurement (mass/mass) Ordered By: Ivette Grimes on 07-23-2025 Iron (Unsp spec) [Mass/Mass] 70 ug/dL 50-170 [facility] Iron+Iron Binding Capacityon 07-23-2025 Iron [Mass/Vol] 70 ug/dL Normal 50-170 [facility] Comment on above: Performed By: #### L 503.6030, L100.0100, L503.6550, L500.2500, L503.0106, L506.0200 ####[facility] [address] [place], [address] IRON SATURATION 26.7 Normal 13-59 [facility] Comment on above: Performed By: #### L 503.6030, L100.0100, L503.6550, L500.2500, L503.0106, L506.0200 ####[facility] [address] [place], [address] TIBC 261 ug/dL Normal 250-450 [facility] Comment on above: Performed By: #### L 503.6030, L100.0100, L503.6550, L500.2500, L503.0106, L506.0200 ####[facility] [address] [place], [address] UIBC 191 ug/dL Low 228-428 [facility] Comment on above: Performed By: #### L 503.6030, L100.0100, L503.6550, L500.2500, L503.0106, L506.0200 ####[facility] [address] [place], [address] MCV (mean corpuscular volume ) determinationOrdered By: Ivette Grimes on 07-23-2025 MCV (RBC) [Entitic vol] 94.5 fL 81-99 [facility] Mean corpuscular hemoglobin (MCH) determinationOrdered By: Ivette Grimes on 07-23-2025 MCH (RBC) [Entitic mass] 31.5 pg 27.0-32.0 [facility] Monocyte percentageOrdered B y: Ivette Grimes on 07-23-2025 Monocytes/100 WBC (Bld) 5.0 % 0-10 [facility] Neutrophil percentageOrdered By: Ivette Grimes on 07-23-2025 Neutrophils/100 WBC (Bld) 62.0 % 47-70 [facility] No Panel InformationOrdered By: Ivette Grimes on 07-23-2025 191 ug/dL Low 228-428 [facility] Platelet countOrdered By: Regina Grimes on 07-23-2025 Platelets (Bld) [#/Vol] 240 10*3/uL 150-450 [facility] Potassium measurement (mass/ volume)Ordered By: Ivette Grimes on 07-23-2025 Potassium (Unsp spec) [Mass/Vol] 3.9 mmol/L 3.3-5.1 [facility] RBC Auto (Bld) [#/Vol]Ordere d By: Ivette Grimes on 07-23-2025 RBC (Bld) [#/Vol] 4.03 10*6/uL Low 4.2-5.4 [facility] Serum creatinine measurement (mass/volume)Ordered By: Ivette Grimes on 07-23-2025 Creatinine [Mass/Vol] 0.89 mg/dL 0.70-1.20 [facility] Serum glucose measurement (m ass/volume)Ordered By: Ivette Grimes on 07-23-2025 Glucose [Mass/Vol] 145 mg/dL High 70-99 [facility] Serum or plasma calcium sharron urement (mass/volume)Ordered By: Ivette Grimes on 07-23-2025 Calcium [Mass/Vol] 8.9 mg/dL 7.6-11.0 [facility] Serum or plasma ferritin jacob surement (mass/volume)Ordered By: Ivette Grimes on 07-23-2025 Ferritin [Mass/Vol] 291 ng/mL 22-378 [facility] Serum or plasma iron saturat ion measurement (mass fraction)Ordered By: Ivette Grimes on 07-23-2025 Iron saturation [Mass fraction] 26.7 % 13-59 [facility] Serum or plasma urea nitroge n measurement (mass/volume)Ordered By: Ivette Grimes on 07-23-2025 Urea nitrogen [Mass/Vol] 13 mg/dL 4-19 [facility] Sodium levelOrdered By: Reji erica Patinoo on 07-23-2025 Sodium [Moles/Vol] 137 mmol/L 133-145 [facility] Vitamin B12on 07-23-2025 Cobalamin (Vitamin B12) [Mass/Vol] 679 pg/mL Normal 180-914 [facility] Comment on above: Performed By: #### L 503.6030, L100.0100, L503.6550, L500.2500, L503.0106, L506.0200 ####[facility] [address] [place], [address] Vitamin B12 ser/plasOrdered By: Ivette Grimes on 07-23-2025 Cobalamin (Vitamin B12) [Mass/Vol] 679 pg/mL 180-914 [facility] White blood cell (WBC) count Ordered By: Ivette Grimes on 07-23-2025 WBC (Bld) [#/Vol] 8.3 10*3/uL 4.4-11.0 [facility] CNPNon 07-22-2025 [facility] Tele[facility] (OL[facility] ---- TORI GRAY ([id number]) 1980 F Date Time Provider Department 07/22/25 IVETTE GRIMES During your visit today, we recorded the following information about you: Priscila France RN 07/22/2025 3:53 PM Signed Pt called in and asked to have the labs the provider ordered today faxed over to [facility]. Faxed labs to # [phone]. Priscila France RN Allergies As of Date: 07/22/2025 Noted Allergy Reaction FARXIGA (DAPAGLIFLOZIN) 08/05/2024 8 - GI Upset LIDOCAINE 12/24/2019 4 - Hives METFORMIN 08/05/2024 8 - GI Upset STEROIDS (BETAMETHASONE DIPROPION* 2 4 - Hives Date Reviewed: 07/15/2025 Reviewed by: Little Murphy MA - Fully Assessed Reason for Visit: Fax Labs [Other] Prescriptions as of 07/22/2025 - lisinopril (ZESTRIL) 10 mg tablet Take 1 tablet by mouth once daily. - topiramate (TOPAMAX) 100 mg tablet Take 1 tablet by mouth two times a day. - insulin glargine (LANTUS SOLOSTAR U-100 INSULIN) 100 unit/mL (3 mL) Inject 10 Units subcutaneously daily at bedtime. - omeprazole (PRILOSEC) 20 mg capsule Take [...] mouth once daily for 180 days. - albuterol HFA (VENTOLIN HFA) 90 mcg/actuation inhaler Inhale 2 Puffs as instructed every 4 hours as needed for wheezing/shortness of breath. - rimegepant (NURTEC ODT) 75 mg disintegrating [...] tablet by mouth once daily. - Ipratropium [place] (ATROVENT) 21 mcg (0.03 %) nasal spray [...] DM - Controlled E11.9 Insulin: No - Gtxwofyl-Wd-Fvw-Fe- FA tab Take 1 tablet by mouth once daily. Meds Comments as of 03/01/2019: Percocet March 01, 2019 Stephanie Suresh RN Problem List As Of Date 07/22/2025 Noted Resolved SUPERVIS NORMAL 1ST PREG [Z34.00] [...] general medical examination at a [facility]*01/23/2010 12/06/2012 Class: Chronic Routine gynecological examination [Z01.419] [...] Nausea, vomiting, and diarrhea [R11.2, R19.7] 11/22/2021 (more content not included)... [facility] TORI [facility] ([id number]) 1980 F Date Time Provider Department 07/22/25 IVETTE GRIMESWS During your visit today, we recorded the following information about you: Little Murphy MA 07/22/2025 2:05 PM Signed Patient has a virtual visit with PCP on 07/29/25. Patient asking if needs any lab orders. Please advise Ivette Grimes MD 07/22/2025 2:42 PM Signed Ordered labs. Allergies As of Date: 07/22/2025 Noted Allergy Reaction FARXIGA (DAPAGLIFLOZIN) 08/05/2024 8 - GI Upset LIDOCAINE 12/24/2019 4 - Hives METFORMIN 08/05/2024 8 - GI Upset STEROIDS (BETAMETHASONE DIPROPION* 2 4 - Hives Date Reviewed: 07/15/2025 Reviewed by: Little Murphy MA - Fully Assessed Reason for Visit: Orders [681] Primary Visit Diagnosis:Anemia, unspecified type [D64.9] Order(s):COMPLETE BLOOD COUNT AND DIFFERENTIAL [SQCBCDIF] Order #: [id number] FUTURE IRON AND TIBC [SQIRON] Order #: [id number] FUTURE VITAMIN B12 [SQB12] Order #: [id number] FUTURE FOLATE, SERUM [SQSERFOL] Order #: [id number] FUTURE FERRITIN [SQFERR] Order #: [id number] FUTURE BASIC METABOLIC PANEL [SQBMP] Order #: [id number] FUTURE Prescriptions as of 07/22/2025 - lisinopril (ZESTRIL) 10 mg tablet Take 1 tablet by mouth once daily. - topiramate (TOPAMAX) 100 mg tablet Take 1 tablet by mouth two times a day. - insulin glargine (LANTUS SOLOSTAR U-100 INSULIN) 100 unit/mL (3 mL) Inject 10 Units subcutaneously daily at bedtime. - omeprazole (PRILOSEC) 20 mg capsule Take [...] mouth once daily for 180 days. - albuterol HFA (VENTOLIN HFA) 90 mcg/actuation inhaler Inhale 2 Puffs as instructed every 4 hours as needed for wheezing/shortness of breath. - rimegepant (NURTEC ODT) 75 mg disintegrating [...] tablet by mouth once daily. - Ipratropium [place] (ATROVENT) 21 mcg (0.03 %) nasal spray [...] DM - Controlled E11.9 Insulin: No - Sfasytme-Tb-Jef-Fe- FA tab Take 1 tablet by mouth once daily. Meds Comments as of 03/01/2019: Percocet March 01, 2019 Stephanie Suresh RN Problem List As Of Date 07/22/2025 Noted Resolved SUPERVIS NORMAL 1ST PREG [Z34.00] [...] 05/06/2009 01/23/2010 Routine general medical examination at [facility]*01/23/2010 12/06/2012 Class: Chronic Routine gynecological examination [Z01.419] 01/23/2010 02/22/2014 Class: Chronic Morbid obesity (HCC) [E66.01] 01/23/2010 06/07/2025 Lumbar Disc Disorder [M51.9] 02/16/2010 Routine general medical examination at [facility]*12/06/2012 02/22/2014 Anxiety [F41.9] 06/07/2014 Type 2 diabetes mellitus with microalbuminuria,*0 07/04/2018 Fatty liver [K76.0] 07/21/2018 08/05/2024 LETITIA (obstructive sleep apnea) [G47.33] 07/21/2018 Microalbuminuria [R80.9] 09/30/2018 09/04/2022 Obesity, Class III, BMI >= 40 [E66.813] 11/26/2019 09/04/2022 Prolonged Q-T interval on ECG [R94.31] 03/31/2020 Calculus of kidney [N20.0] 09/04/2022 Chest pain [R07.9] 09/04/2022 09/04/2022 Contusion of knee [S80.00XA] 09/04/2022 09/04/2022 Essential (primary) hypertension [I10] 08/16 (more content not included)... Normal [facility] CBC W/Diff, Automatedon 07-05 PATH REV Reviewed Normal [facility] Comment on above: Result Comment: SEE REPORT IN PATIENT'S EMR AMENDED REPORT 07/21/25 1434 PATH REV previously reported as: March Performed By: #### L 100.0100, L500.2500 ####[facility] [address] [place], [address] CNOVon 07-15-2025 CNOV Office Visit (FAMPWS) ---- TORI GRAY ([id number]) 1980 F Date Time Provider Department 07/15/25 9:20 AM [facility] During your visit today, we recorded the following information about you: Temperature Pulse Blood pressure Weight 97.6 degrees 73/minute 128/76 122 kg Lubna De La Garza, [employer] PATHOLOGIST.[facility] 07/15/2025 9:54 AM Signed This is a 45 year old female who presents today with: Patient presents with: Hospital F/U: [facility] DX Sepsis, UTI D/C 07/07 HISTORY OF PRESENT ILLNESS: Tori Gray is a 45 year old female. Patient presents with: Hospital F/U: [facility] DX Sepsis, UTI D/C 07/07 The patient is a 45-year-old female with type 2 DM on insulin, presenting for follow-up of glycemic control and evaluation of persistent fatigue post-hospitalizatio n for anemia. UTI: - Tori Gray was hospitalized for a UTI; completed a course of cefdinir yesterday. - Reports feeling "80% better" with no current dysuria. - Believes the infection may have been caused by catheterization during shoulder surgery on 06/23. - Denies fever, chills, or hematuria. Anemia: - Diagnosed with significant anemia during hospitalization; etiology unknown. - Recent labs in August showed low RBC count; unsure about platelet count. - Denies hematochezia or melena. - Reports ongoing fatigue, but overall improvement in energy levels. DM: - Blood glucose levels were elevated during hospitalization, with a peak of 480 mg/dL. - Attributes hyperglycemia to missing two doses of Ozempic around the time of surgery. - Currently taking insulin at night; resumed Ozempic last . - Monitoring blood glucose levels daily; fasting levels around 160 mg/dL, post-activity levels drop to 110-130 mg/dL. - Reports weight loss of 15 lbs since hospitalization. - Denies excessive thirst, polyuria, or polydipsia. Shoulder Pain: - Underwent shoulder surgery on 06/23; currently weaning off the sling. - Reports mild pain but good range of motion. - Follow-up with the surgeon on Saturday indicated good healing progress. Additional ROS: - Denies headaches, changes in hearing or vision, neck swelling, dyspnea, cough, wheezing, chest pain, leg swelling, palpitations, nausea, emesis, diarrhea, constipation, syncope, seizures, or tremors. - Denies feelings of hopelessness, helplessness, or suicidal thoughts. PAST MEDICAL HISTORY: PAST MEDICAL HISTORY Diagnosis [...] Dipropionate] MEDICATIONS Current Outpatient Medications Medication Sig lisinopril (ZESTRIL) 10 mg tablet Take 1 tablet by mouth once daily. omeprazole (PRILOSEC) 20 mg capsule Take 1 capsule by mouth daily before breakfast. 1/2 hr before meal. ondansetron (ZOFRAN) 4 mg tablet Take 1 tablet by mouth every 8 hours as needed for nausea/vomiting. semaglutide (OZEMPIC) 2 mg/dose (8 mg/3 mL) pen injector Inject 2 mg subcutaneously one time a week. FLUoxetine (PROZAC) 20 mg capsule Take 1 capsule by mouth once daily. tiZANidine (ZANAFLEX) 4 mg tablet Take 1 tablet by mouth every 8 hours as needed (muscle spasms). gabapentin (NEURONTIN) 300 mg capsule Take 1 capsule by mouth once daily for 180 days. topiramate (TOPAMAX) 100 mg tablet Take 1 tablet by mouth two times a day. albuterol HFA (VENTOLIN HFA) 90 mcg/actuation inhaler Inhale 2 Puffs as instructed every 4 hours as needed for wheezing/shortness of breath. rimegepant (NURTEC ODT) 75 mg disintegrating tablet [...] 1 tablet by mouth once daily. Ipratropium [place] (ATROVENT) 21 mcg (0.03 %) nasal spray Use 2 Sprays in the nose every 12 hours. MAGNESIUM ORAL Take by mouth. meclizine (ANTIVERT) 25 mg tab Take 25 mg by mouth once daily. Takes two tabs in am BIPAP levonorgestrel (KYLEENA) 17.5 mcg/24 hrs (5 yrs) 19.5 mg IUD 1 Each by INTRAUTERINE route as directed. blood sugar diagnostic (BLOOD GLUCOSE TEST) test strip Test blood sugar(s) 1 times daily. Dx: Type 2 DM - Controlled E11.9 Insulin: Yes Lancets lancets Test blo (more content not included)... Normal [facility] 07-15-2025 [facility] ([facility] ---- TORI GRAY ([id number]) 1980 F Date Time Provider Department 07/15/25 LUBNA DE LA GARZA During your visit today, we recorded the following information about you: Lubna De La Garza APRN.MAINTAINER OPERATOR 07/15/2025 9:30 AM Signed Patient was seen at [facility] on August 03, 2025 for sepsis, complicated urinary tract infection. Patient presented to the emergency room with some confusion and found to have hyperosmolar nonketotic state as well as sepsis secondary to urinary tract infection in addition to acute kidney injury. She was seen by the blasting helper. Acute metabolic encephalopathy secondary to sepsis and urinary tract infection. Hyperosmolar nonketotic state Sepsis secondary to acute cystitis with E. coli Acute kidney injury Thrombocytopenia-th is normalized on discharge Anemia secondary to chronic disorder obesity Hypertension lisinopril held during admission but resumed. Obesity GERD on PPI Chronic migraines Sleep apnea consistent use of PAP encouraged Left shoulder impingement underwent left shoulder arthroscopy, some acromial decompression, debridement on June 23, 2025. Left shoulder immobilized. July 07: WBC 6.2, hemoglobin 9.5, hematocrit 27.7, platelet count 187 Sodium 136, potassium 3.5, BUN 19, creatinine 1.14, glucose 223 Magnesium 1.9 New prescriptions: Cefdinir 300 mg twice daily for 7 days Lantus 10 units at bedtime Ozempic 2 mg weekly continued Allergies As of Date: 07/15/2025 Noted Allergy Reaction FARXIGA (DAPAGLIFLOZIN) 08/05/2024 8 - GI Upset LIDOCAINE 12/24/2019 4 - Hives METFORMIN 08/05/2024 8 - GI Upset STEROIDS (BETAMETHASONE DIPROPION* 2 4 - Hives Date Reviewed: 07/15/2025 Reviewed by: Little Murphy MA - Fully Assessed Prescriptions as of 07/15/2025 - lisinopril (ZESTRIL) 10 mg tablet Take [...] as needed for wheezing/shortness of breath. - rimegepant (NURTEC ODT) 75 mg disintegrating [...] tablet by mouth once daily. - Ipratropium [place] (ATROVENT) 21 mcg (0.03 %) nasal spray [...] DM - Controlled E11.9 Insulin: No - Ixwdbszg-Di-Qyr-Fe- FA tab Take 1 tablet by mouth once daily. Meds Comments as of 03/01/2019: Percocet March 01, 2019 Stephanie Suresh RN Problem List As Of Date 07/15/2025 Noted Resolved SUPERVIS NORMAL 1ST PREG [Z34.00] [...] 05/06/2009 01/23/2010 Routine general medical examination at [facility]*01/23/2010 12/06/2012 Class: Chronic Routine gynecological examination [Z01.419] 01/23/2010 02/22/2014 Class: Chronic Morbid obesity (HCC) [E66.01] 01/23/2010 06/07/2025 Lumbar Disc Disorder [M51.9] 02/16/2010 Routine general medical examination at [facility]*12/06/2012 02/22/2014 Anxiety [F41.9] 08 (more content not included)... Normal [facility] Culture, Blood (WB)on 2024 CUB Blood cultures x2, from two different sites No growth in 5 days. Normal [facility] Comment on above: Performed By: #### M 200.1000 ####[facility] [address] [place], [place], [id number] CUB Blood cultures x2, from two different sites No growth in 5 days. Normal [facility] Comment on above: Performed By: #### M 200.1000 ####[facility] [address] [place], [place], [id number] Orthopedic Visit Reporton Orthopedic Visit Report Normal [facility] Absolute lymphocyte countOrd ered By: Jose Juan Reinoso on 07-07-2025 Lymphocytes Auto (Unsp spec) [#/Vol] 1.80 10*3/uL 0.83-4.51 [facility] Absolute neutrophil countOrd ered By: Jose Juan Reinoso on 07-07-2025 Neutrophils (Bld) [#/Vol] 3.9 10*3/uL 2.0-7.7 [facility] Anion gap in Serum or Plasma Ordered By: Jose Juan Reinoso on 07-07-2025 Anion gap [Moles/Vol] 12 mmol/L - [facility] BUN/creatinine ratioOrdered By: Jose Juan Reinoso on 07-07-2025 Urea nitrogen/Creatinine [Mass ratio] 16.6 mg/mg - [facility] Basic Metabolic Profile (BMP )on 07-07-2025 BUN/CRE 16.6 RATIO Normal 08-23 [facility] Comment on above: Performed By: #### L 100.0100, L500.2500 ####[facility] [address] [place], [address] Calcium [Mass/Vol] 8.8 mg/dL Normal 7.6-11.0 [facility] Comment on above: Performed By: #### L 100.0100, L500.2500 ####[facility] [address] [place], [address] Chloride [Moles/Vol] 105 mmol/L Normal 98-108 [facility] Comment on above: Performed By: #### L 100.0100, L500.2500 ####[facility] [address] [place], [address] CO2 [Moles/Vol] 18.4 mmol/L Low 21.0-32.0 [facility] Comment on above: Performed By: #### L 100.0100, L500.2500 ####[facility] [address] [place], [address] Creatinine [Mass/Vol] 1.14 mg/dL Normal 0.70-1.20 [facility] Comment on above: Performed By: #### L 100.0100, L500.2500 ####[facility] [address] [place], [address] ECRCL 88.48 ml/min Normal 50-250 [facility] Comment on above: Performed By: #### L 100.0100, L500.2500 ####[facility] [address] [place], [address] GAP 12 Normal 5-15 [facility] Comment on above: Performed By: #### L 100.0100, L500.2500 ####[facility] [address] [place], [address] GFR/1.73 sq M.predicted among non-blacks MDRD (S/P/Bld) [Vol rate/Area] 61 mL/min/{1.73_m2} Normal >60 [facility] Comment on above: Result Comment: mL/m in/1.73m2 CKD-EPI Creatinine Equation (2020) Performed By: #### L 100.0100, L500.2500 ####[facility] [address] [place], [address] Glucose [Mass/Vol] 223 mg/dL High 70-99 [facility] Comment on above: Performed By: #### L 100.0100, L500.2500 ####[facility] [address] [place], [address] Potassium [Moles/Vol] 3.5 mmol/L Normal 3.3-5.1 [facility] Comment on above: Performed By: #### L 100.0100, L500.2500 ####[facility] [address] [place], [address] Sodium [Moles/Vol] 136 mmol/L Normal 133-145 [facility] Comment on above: Performed By: #### L 100.0100, L500.2500 ####[facility] [address] [place], [address] Urea nitrogen [Mass/Vol] 19 mg/dL Normal 4-19 [facility] Comment on above: Performed By: #### L 100.0100, L500.2500 ####[facility] [address] [place], [place], [id number] Bedside Glucoseon 07-07-2025 FINGERSTICK GLU 202 mg/dL High 74-106 [facility] Comment on above: Result Comment: [place]ER OF PATIENT CARE PER NURSING PROTOCOL Performed By: #### L 501.080 ####[facility] [address] [place], [place], [address] Blood band neutrophil count as percentage of total leukocytesOrdered By: Jose Juan Reinoso on 07-07-2025 Band form neutrophils/100 WBC (Bld) 3 % 0-5 [facility] Blood blasts/100 leukocytesO rdered By: Jose Juan Reinoso on 07-07-2025 Blasts/100 WBC (Bld) 1 % Critically high 0-0 [facility] Blood eosinophils/100 leukoc ytesOrdered By: Jose Juan Reinoso on 07-07-2025 Eosinophils/100 WBC (Bld) 2 % 0-5 [facility] Blood lymphocytes/100 leukoc ytesOrdered By: Jose Juan Reinoso on 07-07-2025 Lymphocytes/100 WBC (Bld) 29 % 19-41 [facility] Blood metamyelocytes/100 facundo kocytesOrdered By: Jose Juan Reinoso on 07-07-2025 Metamyelocytes/100 WBC (Bld) 1 % 0-1 [facility] Blood monocytes/100 leukocyt esOrdered By: Jose Juan Reinoso on 07-07-2025 Monocytes/100 WBC (Bld) 4 % 0-10 [facility] Blood segmented neutrophils/ 100 leukocytesOrdered By: Jose Juan Reinoso on 07-07-2025 Segmented neutrophils/100 WBC (Bld) 60 % 47-70 [facility] Carbon dioxide, total [Moles /volume] in Central venous bloodOrdered By: Jose Juan Reinoso on 07-07-2025 CO2 [Moles/Vol] 18.4 mmol/L Low 21.0-32.0 [facility] Chloride assayOrdered By: Rachelle Reinoso on 07-07-2025 Chloride [Moles/Vol] 105 mmol/L 98-108 [facility] Electrolyte Panelon 07-07-20 25 CL Normal 98-108 [facility] Comment on above: Result Comment: Canc elled via OM: MD Ordered Performed By: #### L 501.5294 ####[facility] [address] [place], [address] CO2 Normal 21.0-32.0 [facility] Comment on above: Result Comment: Canc elled via OM: MD Ordered Performed By: #### L 501.5294 ####[facility] [address] [place], [address] GAP Normal 5-15 [facility] Comment on above: Result Comment: Canc elled via OM: MD Ordered Performed By: #### L 501.5294 ####[facility] [address] [place], [address] Potassium Normal 3.3-5.1 [facility] Comment on above: Result Comment: Canc elled via OM: MD Ordered Performed By: #### L 501.5294 ####[facility] [address] [place], [address] Electrolyte Panel Normal 133-145 [facility] Comment on above: Result Comment: Canc elled via OM: MD Ordered Performed By: #### L 501.5294 ####[facility] [address] [place], [address] Erythrocyte distribution wid th ratioOrdered By: Jose Juan Reinoso on 07-07-2025 Erythrocyte distribution width (RBC) [Ratio] 14.1 % 11.6-14.6 [facility] Erythrocyte distribution wid th standard deviationOrdered By: Jose Juan Reinoso on 07-07-2025 Erythrocyte distribution width (RBC) [Ratio] 50.4 fl High 35.1-43.9 [facility] Erythrocyte morphology asses smentOrdered By: Jose Juan Reinoso on 07-07-2025 RBC morphology finding Nom (Bld) NORM C+C NORMAL NORM C&C [facility] Glomerular filtration rate ( GFR) estimation/1.73 sq m using serum, plasma, or whole bOrdered By: Jose Juan Reinoso on 07-07-2025 GFR/1.73 sq M.predicted among non-blacks MDRD (S/P/Bld) [Vol rate/Area] 61 mL/min/{1.73_m2} >60 [facility] Comment on above: mL/min/1.73m2 CKD-EP I Creatinine Equation (2020) [facility] deOrdered By: Brittany Harrison on 07-07-2025 Glucose [Mass/Vol] 202 mg/dL High 74-106 [facility] Comment on above: MANAGEMENT OF PATIEN T CARE PER NURSING PROTOCOL Hematocrit Auto (Bld) [Volum e fraction]Ordered By: Jose Juan Reinoso on 07-07-2025 Hematocrit (Bld) [Volume fraction] 27.7 % Low 37-47 [facility] Hemoglobin measurementOrdere d By: Jose Juan Reinoso on 07-07-2025 Hemoglobin (Bld) [Mass/Vol] 9.5 g/dL Low 12.0-15.0 [facility] MCV (mean corpuscular volume ) determinationOrdered By: Jose Juan Reinoso on 07-07-2025 MCV (RBC) [Entitic vol] 96.9 fL 81-99 [facility] Mean corpuscular hemoglobin (MCH) determinationOrdered By: Jose Juan Reinoso on 07-07-2025 MCH (RBC) [Entitic mass] 33.2 pg High 27.0-32.0 [facility] Mean corpuscular hemoglobin concentration (MCHC) determinationOrdered By: Jose Juan Reinoso on 07-07-2025 MCHC (RBC) [Mass/Vol] 34.3 g/dL 32-36 [facility] Mean platelet volume determi nationOrdered By: Jose Juan Reinoso on 07-07-2025 Platelet mean volume (Bld) [Entitic vol] 9.4 fL 6.2-12.0 [facility] Platelet countOrdered By: Rachelle Reinoso on 07-07-2025 Platelets (Bld) [#/Vol] 187 10*3/uL 150-450 [facility] Platelet estimateOrdered By: Jose Juan Reinoso on 07-07-2025 Platelets LM Ql (Bld) ADEQUATE ADEQ [facility] Potassium measurement (mass/ volume)Ordered By: Jose Juan Reinoso on 07-07-2025 Potassium (Unsp spec) [Mass/Vol] 3.5 mmol/L 3.3-5.1 [facility] RBC Auto (Bld) [#/Vol]Ordere d By: Jose Juan Reinoso on 07-07-2025 RBC (Bld) [#/Vol] 2.86 10*6/uL Low 4.2-5.4 [facility] Review by pathologistOrdered By: Jose Juan Reinoso on 07-07-2025 Pathologist review Christiano (Unsp spec) [Interp] May foll [facility] Pathologist review Christiano (Unsp spec) [Interp] Reviewed [facility] Serum creatinine measurement (mass/volume)Ordered By: Jose Juan Reinoso on 07-07-2025 Creatinine [Mass/Vol] 1.14 mg/dL 0.70-1.20 [facility] Serum glucose measurement (m ass/volume)Ordered By: Jose Juan Reinoso on 07-07-2025 Glucose [Mass/Vol] 223 mg/dL High 70-99 [facility] Serum or plasma calcium sharron urement (mass/volume)Ordered By: Jose uJan Reinoso on 07-07-2025 Calcium [Mass/Vol] 8.8 mg/dL 7.6-11.0 [facility] Serum or plasma urea nitroge n measurement (mass/volume)Ordered By: Jose Juan Reinoso on 07-07-2025 Urea nitrogen [Mass/Vol] 19 mg/dL 4-19 [facility] Sodium levelOrdered By: Artemio Reinoso on 07-07-2025 Sodium [Moles/Vol] 136 mmol/L 133-145 [facility] Total cell countOrdered By: Jose Juan Reinoso on 07-07-2025 Cells counted Molgen (Bld/Tiss) [#] 100 MANUAL DIFF [facility] Urine Cultureon 07-07-2025 URC Normal [facility] Comment on above: Performed By: #### M 100.2200 ####[facility] [address] [place], [address] White blood cell (WBC) count Ordered By: Jose Juan Reinoso on 07-07-2025 WBC (Bld) [#/Vol] 6.2 10*3/uL 4.4-11.0 [facility] Automated lymphocyte count a s percentage of total leukocytesOrdered By: Shana White on 07-06-2025 Lymphocytes/100 WBC Auto (Unsp spec) 16.7 % Low 19-41 [facility] Basophil percentageOrdered B y: White on 07-06-2025 Basophils/100 WBC (Bld) 0.3 % 0-1 [facility] Bedside Glucoseon 07-06-2025 FINGERSTICK GLU 165 mg/dL High 74-106 [facility] Comment on above: Result Comment: SANTA GEMENT OF PATIENT CARE PER NURSING PROTOCOL Performed By: #### L 501.080 ####[facility] [address] [place], [address] FINGERSTICK GLU 181 mg/dL High 74-106 [facility] Comment on above: Result Comment: SANTA GEMENT OF PATIENT CARE PER NURSING PROTOCOL Performed By: #### L 501.080 ####[facility] [address] [place], [address] FINGERSTICK GLU 138 mg/dL High 74-106 [facility] Comment on above: Result Comment: SANTA GEMENT OF PATIENT CARE PER NURSING PROTOCOL Performed By: #### L 501.080 ####[facility] [address] [place], [address] FINGERSTICK GLU 144 mg/dL High 74-106 [facility] Comment on above: Result Comment: SANTA GEMENT OF PATIENT CARE PER NURSING PROTOCOL Performed By: #### L 501.080 ####[facility] [address] [place], [address] FINGERSTICK GLU 186 mg/dL High 74-106 [facility] Comment on above: Result Comment: SANTA GEMENT OF PATIENT CARE PER NURSING PROTOCOL Performed By: #### L 501.080 ####[facility] [address] [place], [address] FINGERSTICK GLU 176 mg/dL High 74-106 [facility] Comment on above: Result Comment: SANTA GEMENT OF PATIENT CARE PER NURSING PROTOCOL Performed By: #### L 501.080 ####[facility] [address], [address] FINGERSTICK GLU 168 mg/dL High 74-106 [facility] Comment on above: Result Comment: SANTA GEMENT OF PATIENT CARE PER NURSING PROTOCOL Performed By: #### L 501.080 ####[facility] [address], [address] FINGERSTICK GLU 156 mg/dL High 74-106 [facility] Comment on above: Result Comment: SANTA GEMENT OF PATIENT CARE PER NURSING PROTOCOL Performed By: #### L 501.080 ####[facility] [address], [address] FINGERSTICK GLU 160 mg/dL High 74-106 [facility] Comment on above: Result Comment: SANTA GEMENT OF PATIENT CARE PER NURSING PROTOCOL Performed By: #### L 501.080 ####[facility] [address] [place], [address] FINGERSTICK GLU 187 mg/dL High 74-106 [facility] Comment on above: Result Comment: SANTA GEMENT OF PATIENT CARE PER NURSING PROTOCOL Performed By: #### L 501.080 ####[facility] [address] [place], [address] FINGERSTICK GLU 169 mg/dL High 74-106 [facility] Comment on above: Result Comment: SANTA GEMENT OF PATIENT CARE PER NURSING PROTOCOL Performed By: #### L 501.080 ####[facility] [address] [place], [address] FINGERSTICK GLU 164 mg/dL High 74-106 [facility] Comment on above: Result Comment: SANTA GEMENT OF PATIENT CARE PER NURSING PROTOCOL Performed By: #### L 501.080 ####[facility] [address] [place], [address] FINGERSTICK GLU 165 mg/dL High -106 [facility] Comment on above: Result Comment: SANTA GEMENT OF PATIENT CARE PER NURSING PROTOCOL Performed By: #### L 501.080 ####[facility] [address] [place], [address] FINGERSTICK GLU 211 mg/dL High -106 [facility] Comment on above: Result Comment: SANTA GEMENT OF PATIENT CARE PER NURSING PROTOCOL Performed By: #### L 501.080 ####[facility] [address] [place], [address] Bilirubin, totalOrdered By: Shana Mendoza on 07-06-2025 Bilirubin [Mass/Vol] 0.41 mg/dL 0.00-1.30 [facility] CBC W/Diff, Automatedon Absolute Lymph 1.07 X10 3/uL Normal 0.83-4.51 [facility] Comment on above: Performed By: #### L 100.0100, L501.9985 ####[facility] [address] [place], [address] Absolute Neut 4.7 X10 3/uL Normal 2.0-7.7 [facility] Comment on above: Performed By: #### L 100.0100, L501.9985 ####[facility] [address] [place], [address] Basophils/100 WBC (Bld) 0.3 % Normal 0-1 [facility] Comment on above: Performed By: #### L 100.0100, L501.9985 ####[facility] [address] [place], [address] Eosinophils/100 WBC (Bld) 1.4 % Normal 0-5 [facility] Comment on above: Performed By: #### L 100.0100, L501.9985 ####[facility] [address] [place], [address] Erythrocyte distribution width (RBC) [Ratio] 13.9 % Normal 11.6-14.6 [facility] Comment on above: Performed By: #### L 100.0100, L501.9985 ####[facility] [address] [place], [address] Hematocrit (Bld) [Volume fraction] 25.4 % Low 37-47 [facility] Comment on above: Performed By: #### L 100.0100, L501.9985 ####[facility] [address] [place], [address] Hemoglobin (Bld) [Mass/Vol] 8.7 g/dL Low 12.0-15.0 [facility] Comment on above: Performed By: #### L 100.0100, L501.9985 ####[facility] [address] [place], [address] IG% 1.400 High 0.0-0.9 [facility] Comment on above: Result Comment: IG% - Immature Granulocytes (promyelocytes, myelocytes andmetamyelocytes) > 1% indicates that a LEFT SHIFT is Present. Performed By: #### L 100.0100, L501.9985 ####[facility] [address] [place], [address] Lymphocytes/100 WBC (Bld) 16.7 % Low 19-41 [facility] Comment on above: Performed By: #### L 100.0100, L501.9985 ####[facility] [address] [place], [address] MCH (RBC) [Entitic mass] 33.1 pg High 27.0-32.0 [facility] Comment on above: Performed By: #### L 100.0100, L501.9985 ####[facility] [address] [place], [address] MCHC (RBC) [Mass/Vol] 34.3 g/dL Normal 32-36 [facility] Comment on above: Performed By: #### L 100.0100, L501.9985 ####[facility] [address] [place], [address] MCV (RBC) [Entitic vol] 96.6 fL Normal 81-99 [facility] Comment on above: Performed By: #### L 100.0100, L501.9985 ####[facility] [address] [place], [address] Monocytes/100 WBC (Bld) 6.6 % Normal 0-10 [facility] Comment on above: Performed By: #### L 100.0100, L501.9985 ####[facility] [address] [place], [address] Neutrophils/100 WBC (Bld) 73.6 % High 47-70 [facility] Comment on above: Performed By: #### L 100.0100, L501.9985 ####[facility] [address] [place], [address] Nucleated RBC (Bld) [#/Vol] 0 10*3/uL Normal 0-5 [facility] Comment on above: Performed By: #### L 100.0100, L5.9985 ####[facility] [address] [place], [address] Platelet mean volume (Bld) [Entitic vol] 9.9 fL Normal 6.2-12.0 [facility] Comment on above: Performed By: #### L 100.0100, L501.9985 ####[facility] [address] [place], [address] Platelets (Bld) [#/Vol] 145 10*3/uL Low 150-450 [facility] Comment on above: Performed By: #### L 100.0100, L501.9985 ####[facility] [address] [place], [address] RBC (Bld) [#/Vol] 2.63 10*6/uL Low 4.2-5.4 [facility] Comment on above: Performed By: #### L 100.0100, L501.9985 ####[facility] [address] [place], [address] RDW SD 49.3 fl High 35.1-43.9 [facility] Comment on above: Performed By: #### L 100.0100, L501.9985 ####[facility] [address] [place], [address] WBC (Bld) [#/Vol] 6.4 10*3/uL Normal 4.4-11.0 [facility] Comment on above: Performed By: #### L 100.0100, L501.9985 ####[facility] [address] [place], [address] Comprehensive Metabolic Prof ilon 07-06-2025 Albumin [Mass/Vol] 3.1 g/dL Low 3.5-5.0 [facility] Comment on above: Order Comment: Comme nts: May add to ED labs Performed By: #### L 501.2300, L500.4050 ####[facility] [address] [place], [address] Albumin/Globulin [Mass ratio] 1.0 {ratio} Normal 0.9-2.4 [facility] Comment on above: Order Comment: Comme nts: May add to ED labs Performed By: #### L 501.2300, L500.4050 ####[facility] [address], [address] ALK PHOS 102 U/L Normal 35-104 [facility] Comment on above: Order Comment: Comme nts: May add to ED labs Performed By: #### L 501.2300, L500.4050 ####[facility] [address], [address] ALT [Catalytic activity/Vol] 23 U/L Normal <=34 [facility] Comment on above: Order Comment: Comme nts: May add to ED labs Performed By: #### L 501.2300, L500.4050 ####[facility] [address] [place], [address] AST [Catalytic activity/Vol] 15 U/L Normal <=31 [facility] Comment on above: Order Comment: Comme nts: May add to ED labs Performed By: #### L 501.2300, L500.4050 ####[facility] [address], [address] Bilirubin [Mass/Vol] 0.41 mg/dL Normal 0.00-1.30 [facility] Comment on above: Order Comment: Comme nts: May add to ED labs Performed By: #### L 501.2300, L500.4050 ####[facility] [address] [place], [address] BUN/CRE 19.4 RATIO Normal 10-20 [facility] Comment on above: Order Comment: Comme nts: May add to ED labs Performed By: #### L 501.2300, L500.4050 ####[facility] [address] [place], [address] Calcium [Mass/Vol] 8.1 mg/dL Normal 7.6-11.0 [facility] Comment on above: Order Comment: Comme nts: May add to ED labs Performed By: #### L 501.2300, L500.4050 ####[facility] [address] [place], [address] Chloride [Moles/Vol] 106 mmol/L Normal 98-108 [facility] Comment on above: Order Comment: Comme nts: May add to ED labs Performed By: #### L 501.2300, L500.4050 ####[facility] [address] [place], [address] CO2 [Moles/Vol] 17.0 mmol/L Low 21.0-32.0 [facility] Comment on above: Order Comment: Comme nts: May add to ED labs Performed By: #### L 501.2300, L500.4050 ####[facility] [address] [place], [address] Creatinine [Mass/Vol] 1.47 mg/dL High 0.70-1.20 [facility] Comment on above: Order Comment: Comme nts: May add to ED labs Performed By: #### L 501.2300, L500.4050 ####[facility] [address] [place], [address] ECRCL 69.18 ml/min Normal 50-250 [facility] Comment on above: Order Comment: Comme nts: May add to ED labs Performed By: #### L 501.2300, L500.4050 ####[facility] [address] [place], [address] GAP 11 Normal 5-15 [facility] Comment on above: Order Comment: Comme nts: May add to ED labs Performed By: #### L 501.2300, L500.4050 ####[facility] [address] [place], [address] GFR/1.73 sq M.predicted among non-blacks MDRD (S/P/Bld) [Vol rate/Area] 45 mL/min/{1.73_m2} Low >60 [facility] Comment on above: Order Comment: Comme nts: May add to ED labs Result Comment: mL/m in/1.73m2 CKD-EPI Creatinine Equation (2020) Performed By: #### L 501.2300, L500.4050 ####[facility] [address], [address] Globulin (S) [Mass/Vol] 3.3 g/dL Normal 2.2-4.2 [facility] Comment on above: Order Comment: Comme nts: May add to ED labs Performed By: #### L 501.2300, L500.4050 ####[facility] [address] [place], [address] Glucose [Mass/Vol] 195 mg/dL High 70-99 [facility] Comment on above: Order Comment: Comme nts: May add to ED labs Performed By: #### L 501.2300, L500.4050 ####[facility] [address] [place], [address] Potassium [Moles/Vol] 3.4 mmol/L Normal 3.3-5.1 [facility] Comment on above: Order Comment: Comme nts: May add to ED labs Performed By: #### L 501.2300, L500.4050 ####[facility] [address] [place], [address] Performed By: #### L 501.5294 ####[facility] [address] [place], [address] Sodium [Moles/Vol] 134 mmol/L Normal 133-145 [facility] Comment on above: Order Comment: Comme nts: May add to ED labs Performed By: #### L 501.2300, L500.4050 ####[facility] [address] [place], [address] T PROT 6.4 g/dL Normal 5.9-8.4 [facility] Comment on above: Order Comment: Comme nts: May add to ED labs Performed By: #### L 501.2300, L500.4050 ####[facility] [address] [place], [address] Urea nitrogen [Mass/Vol] 29 mg/dL High 4-19 [facility] Comment on above: Order Comment: Comme nts: May add to ED labs Performed By: #### L 501.2300, L500.4050 ####[facility] [address] [place], [address] Consultation - Intensiviston 07-06-2025 Consultation - Bow Tacker Normal [facility] Electrocardiogram reportOrde red By: Jackson Keenan on 07-06-2025 EKG study [facility] [address] [place] [address] 12 Lead EKG 07/05/25 1747 MR#: [id number] Acct: [id number] Name: TORI GRAY Rep #:[id number] : 1980 45 From: Jackson weiss MD Attending Dr: Dr. Jose Juan Reinoso MD Status: ADM IN Ordering Dr: Abhi Pina MD Date: 07/05 Location: ICU Sex: F C Admitted: 07/05/25 Test Reason : SOB Blood Pressure : */* mmHG Vent. Rate : 75 BPM Atrial Rate : 75 BPM P-R Int : 138 ms QRS Dur : 94 ms QT Int : 384 ms P-R-T Axes : 5 -21 -55 degrees QTcB Int : 428 ms Normal sinus rhythm Low voltage QRS Nonspecific ST and T wave abnormality Abnormal ECG Confirmed by Jackson Keenan ([id number]), editor newspaper PRISCILA FERRERA ([id number]) on 07/06/2025 11:04:28 AM Referred By: Confirmed By: Jackson Keenan 07/06/25 1104 Date _ Jackson Keenan MD CC: Dr. Jose Juan Reinoso MD; Dr. Abhi Pina MD; Dr. Ivette Grimes MD ~ Signed [facility] Work Phone: Electrolyte Panelon 07-06-20 25 CL Normal 98-108 [facility] Comment on above: Result Comment: Canc elled via OM: MD Ordered Performed By: #### L 501.5294 ####[facility] [address] [place], [address] CO2 Normal 21.0-32.0 [facility] Comment on above: Result Comment: Canc elled via OM: MD Ordered Performed By: #### L 501.5294 ####[facility] [address] [place], [address] GAP Normal 5-15 [facility] Comment on above: Result Comment: Canc elled via OM: MD Ordered Performed By: #### L 501.5294 ####[facility] [address] [place], [address] Potassium Normal 3.3-5.1 [facility] Comment on above: Result Comment: Canc elled via OM: MD Ordered Performed By: #### L 501.5294 ####[facility] [address] [place], [address] Electrolyte Panel Normal 133-145 [facility] Comment on above: Result Comment: Canc elled via OM: MD Ordered Performed By: #### L 501.5294 ####[facility] [address] [place], [address] CL Normal 98-108 [facility] Comment on above: Result Comment: Canc elled via OM: MD Ordered Performed By: #### L 501.5294 ####[facility] [address] [place], [address] CO2 Normal 21.0-32.0 [facility] Comment on above: Result Comment: Canc elled via OM: MD Ordered Performed By: #### L 501.5294 ####[facility] [address] [place], [address] GAP Normal 5-15 [facility] Comment on above: Result Comment: Canc elled via OM: MD Ordered Performed By: #### L 501.5294 ####[facility] [address] [place], [address] Potassium Normal 3.3-5.1 [facility] Comment on above: Result Comment: Canc elled via OM: MD Ordered Performed By: #### L 501.5294 ####[facility] [address] [place], [address] Electrolyte Panel Normal 133-145 [facility] Comment on above: Result Comment: Canc elled via OM: MD Ordered Performed By: #### L 501.5294 ####[facility] [address] [place], [address] CL Normal 98-108 [facility] Comment on above: Result Comment: Canc elled via OM: MD Ordered Performed By: #### L 501.5294 ####[facility] [address] [place], [address] CO2 Normal 21.0-32.0 [facility] Comment on above: Result Comment: Canc elled via OM: MD Ordered Performed By: #### L 501.5294 ####[facility] [address] [place], [address] GAP Normal 5-15 [facility] Comment on above: Result Comment: Canc elled via OM: MD Ordered Performed By: #### L 501.5294 ####[facility] [address] [place], [address] Potassium Normal 3.3-5.1 [facility] Comment on above: Result Comment: Canc elled via OM: MD Ordered Performed By: #### L 501.5294 ####[facility] [address] [place], [address] Electrolyte Panel Normal 133-145 [facility] Comment on above: Result Comment: Canc elled via OM: MD Ordered Performed By: #### L .5294 ####[facility] [address] [place], [address] CL Normal 98-108 [facility] Comment on above: Result Comment: Canc elled via OM: MD Ordered Performed By: #### L 501.5294 ####[facility] [address] [place], [address] CO2 Normal 21.0-32.0 [facility] Comment on above: Result Comment: Canc elled via OM: MD Ordered Performed By: #### L 501.5294 ####[facility] [address] [place], [address] GAP Normal 5-15 [facility] Comment on above: Result Comment: Canc elled via OM: MD Ordered Performed By: #### L 501.5294 ####[facility] [address] [place], [address] Potassium Normal 3.3-5.1 [facility] Comment on above: Result Comment: Canc elled via OM: MD Ordered Performed By: #### L 501.5294 ####[facility] [address] [place], [address] Electrolyte Panel Normal 133-145 [facility] Comment on above: Result Comment: Canc elled via OM: MD Ordered Performed By: #### L 501.5294 ####[facility] [address] [place], [address] CL Normal 98-108 [facility] Comment on above: Result Comment: DUPL ICATE-CMP ORDERED Performed By: #### L 5294 ####[facility] [address] [place], [address] CO2 Normal 21.0-32.0 [facility] Comment on above: Result Comment: DUPL ICATE-CMP ORDERED Performed By: #### L 94 ####[facility] [address] [place], [address] GAP Normal 5-15 [facility] Comment on above: Result Comment: DUPL ICATE-CMP ORDERED Performed By: #### L 94 ####[facility] [address] [place], [address] Potassium Normal 3.3-5.1 [facility] Comment on above: Result Comment: DUPL ICATE-CMP ORDERED Performed By: #### L 5294 ####[facility] [address] [place], [address] Electrolyte Panel Normal 133-145 [facility] Comment on above: Result Comment: DUPL ICATE-CMP ORDERED Performed By: #### L 5294 ####[facility] [address] [place], [address] CL Normal 98-108 [facility] Comment on above: Result Comment: Canc elled via OM: MD Ordered Performed By: #### L 5294 ####[facility] [address] [place], [address] CO2 Normal 21.0-32.0 [facility] Comment on above: Result Comment: Canc elled via OM: MD Ordered Performed By: #### L 5294 ####[facility] [address] [place], [address] GAP Normal 5-15 [facility] Comment on above: Result Comment: Canc elled via OM: MD Ordered Performed By: #### L 501.5294 ####[facility] [address] [place], [address] Potassium Normal 3.3-5.1 [facility] Comment on above: Result Comment: Canc elled via OM: MD Ordered Performed By: #### L 501.5294 ####[facility] [address] [place], [address] Electrolyte Panel Normal 133-145 [facility] Comment on above: Result Comment: Canmireya elled via OM: MD Ordered Performed By: #### L 501.5294 ####[facility] [address] [place], [address] Chloride [Moles/Vol] 104 mmol/L Normal 98-108 [facility] Comment on above: Performed By: #### L 888.5294 ####[facility] [address] [place], [address] CO2 [Moles/Vol] 17.4 mmol/L Low 21.0-32.0 [facility] Comment on above: Performed By: #### L 5015294 ####[facility] [address] [place], [address] GAP 12 Normal 5-15 [facility] Comment on above: Performed By: #### L 5015294 ####[facility] [address] [place], [address] Sodium [Moles/Vol] 133 mmol/L Normal 133-145 [facility] Comment on above: Performed By: #### L 289.5294 ####[facility] [address] [place], [address] Eosinophil percentageOrdered By: Shana Mendoza on 07-06-2025 Eosinophils/100 WBC (Bld) 1.4 % 0-5 [facility] Hemoglobin A1con 07-06-2025 HbA1c (Bld) [Mass fraction] 7.6 % High <=5.6 [facility] Comment on above: Result Comment: Norm al < 5.7 % Prediabetic 5.7 - 6.4 % Diabetic >or= 6.5 % Please note range changes. Performed By: #### L 100.0100, L501.9985 ####[facility] [address] [place], [place], [address] Hemoglobin A1c percentageOrd ered By: Shana Reji on 07-06-2025 HbA1c (Bld) [Mass fraction] 7.6 % High <5.7 [facility] Comment on above: Normal < 5.7 % Predi abetic 5.7 - 6.4 % Diabetic >or= 6.5 % Please note range changes. Immature granulocytes/100 WB C Auto (Bld)Ordered By: Shana Mendoza on 07-06-2025 Immature granulocytes/100 WBC (Bld) 1.400 % High 0.0-0.9 [facility] Comment on above: IG% - Immature Granu locytes (promyelocytes, myelocytes and metamyelocytes) > 1% indicates that a LEFT SHIFT is Present. Iron+Iron Binding Capacityon 07-06-2025 TIBC 166 ug/dL Low 250-450 [facility] Comment on above: Performed By: #### L 503.6030, L501.5294 ####[facility] [address] [place], [place], [address] Laboratory - Chemistry and C hemistry - challengeOrdered By: Shana Mendoza on 07-06-2025 AST [Catalytic activity/Vol] 15 U/L <32 [facility] M8200.1000on 07-06-2025 M8200.1000 Negative Normal [facility] Comment on above: Performed By: #### M 8200.1000 ####[facility] [address] [place], [place], [address] Magnesiumon 07-06-2025 Magnesium [Mass/Vol] 1.9 mg/dL Normal 1.5-2.2 [facility] Comment on above: Order Comment: Comme nts: may add to ED labsTG1 1 F Performed By: #### L 501.5200 ####[facility] [address] [facility] [place], [place], [address] Magnesium measurement (mass/ volume)Ordered By: Shana Reji on 07-06-2025 Magnesium (Unsp spec) [Mass/Vol] 1.9 mg/dL 1.5-2.2 [facility] Monocyte percentageOrdered B y: Shana Reji on 07-06-2025 Monocytes/100 WBC (Bld) 6.6 % 0-10 [facility] Nasal methicillin resistant Staphylococcus aureus (MRSA) DNA detection by PCROrdered By: Shana Reji on 07-06-2025 MRSA DNA ALLYSON+probe Ql (Nose) [facility] No Panel InformationOrdered By: [facility] Reji on 07-06-2025 15 U/L <32 [facility] Nucleated red blood cell per centageOrdered By: Shana Reji on 07-06-2025 Nucleated RBC/100 WBC (Bld) [Ratio] 0 % 0-5 [facility] Phosphoruson 07-06-2025 Phosphate [Mass/Vol] 2.4 mg/dL Low 2.7-4.5 [facility] Comment on above: Order Comment: Comme nts: May add to ED labs Performed By: #### L 501.2300, L500.4050 ####[facility] [address] [place], [place], [address] Serum globulin measurementOr dered By: Shana Mendoza on 07-06-2025 Globulin (S) [Mass/Vol] 3.3 g/dL 2.2-4.2 [facility] Serum or plasma alanine arizmendi otransferase (ALT) measurementOrdered By: Shana Reji on 07-06-2025 ALT [Catalytic activity/Vol] 23 U/L <35 [facility] Serum or plasma albumin sharron urement (mass/volume)Ordered By: Shana Mendoza on 07-06-2025 Albumin [Mass/Vol] 3.1 g/dL Low 3.5-5.0 [facility] Serum or plasma albumin/glob ulin mass ratioOrdered By: Shana Mendoza on 07-06-2025 Albumin/Globulin [Mass ratio] 1.0 {ratio} 0.9-2.4 [facility] Serum or plasma alkaline toyin sphatase measurementOrdered By: Shana Mendoza on 07-06-2025 ALP [Catalytic activity/Vol] 102 U/L 35-104 [facility] Stool Occult Blood iFOBon STOB Negative Normal [facility] Comment on above: Performed By: #### M 100.7900 ####[facility] [address] [place], [place], [address] Stool gastrointestinal hemog lobin detection by immunologic methodOrdered By: Shana Mendoza on 07-06-2025 Lower GI hemoglobin IA Ql (Stl) [facility] Total proteinOrdered By: Aut amber Mendoza on 07-06-2025 Protein [Mass/Vol] 6.4 g/dL 5.9-8.4 [facility] 12 Lead EKGon 07-05-2025 12 Lead EKG Normal [facility] Abdomen/Pelvis without Conto n 07-05-2025 Abdomen/Pelvis without Cont Normal [facility] Absolute lymphocyte countOrd ered By: Abhi Pina on 07-05-2025 Lymphocytes Auto (Unsp spec) [#/Vol] 0.99 10*3/uL 0.83-4.51 [facility] Absolute neutrophil countOrd ered By: Abhi Pina on 07-05-2025 Neutrophils (Bld) [#/Vol] 5.3 10*3/uL 2.0-7.7 [facility] Anion gap in Serum or Plasma Ordered By: Abhi Pina on 07-05-2025 Anion gap [Moles/Vol] 13 mmol/L 5-15 [facility] Automated lymphocyte count a s percentage of total leukocytesOrdered By: Abhi Pina on 07-05-2025 Lymphocytes/100 WBC Auto (Unsp spec) 14.4 % Low 19-41 [facility] BUN/creatinine ratioOrdered By: Abhi Pina on 07-05-2025 Urea nitrogen/Creatinine [Mass ratio] 20.7 mg/mg High 10-20 [facility] Basophil percentageOrdered B y: Abhi Pina on 07-05-2025 Basophils/100 WBC (Bld) 0.4 % 0-1 [facility] Bedside Glucoseon 07-05-2025 FINGERSTICK GLU 265 mg/dL High 74-106 [facility] Comment on above: Result Comment: SANTA GEMENT OF PATIENT CARE PER NURSING PROTOCOL Performed By: #### L 501.080 ####[facility] [address] [place], [address] FINGERSTICK GLU 321 mg/dL High 74-106 [facility] Comment on above: Result Comment: SANTA GEMENT OF PATIENT CARE PER NURSING PROTOCOL Performed By: #### L 501.080 ####[facility] [address] [place], [address] FINGERSTICK GLU 369 mg/dL High -106 [facility] Comment on above: Result Comment: SANTA GEMENT OF PATIENT CARE PER NURSING PROTOCOL Performed By: #### L 501.080 ####[facility] [address] [place], [address] FINGERSTICK GLU 459 mg/dL Invalid Interpretation Code 74-106 [facility] Comment on above: Result Comment: SANTA GEMENT OF PATIENT CARE PER NURSING PROTOCOL Performed By: #### L 501.080 ####[facility] [address] [place], [address] Beta-Hydroxbytyrateon 2024 BETA-HYDROXYBUT 0.1 mmol/L Normal 0.0-0.3 [facility] Comment on above: Performed By: #### L 501.6901, L501.5200 ####[facility] [address] [place], [address] Beta-hydroxybutyrateOrdered By: Abhi Pina on 07-05-2025 Beta hydroxybutyrate [Mass/Vol] 0.1 mmol/L 0.0-0.3 [facility] Bilirubin Test strip Ql (U)O rdered By: Abhi Pina on 07-05-2025 Bilirubin Ql (U) Negative Negative [facility] Bilirubin, totalOrdered By: Abhi Pina on 07-05-2025 Bilirubin [Mass/Vol] 0.57 mg/dL 0.00-1.30 [facility] Blood cultureOrdered By: Abhi Pina on 07-05-2025 Bacteria identified Cx Nom (Bld) No growth in 5 days. [facility] Bacteria identified Cx Nom (Bld) No growth in 5 days. [facility] CBC W/Diff, Automatedon Absolute Lymph 0.99 X10 3/uL Normal 0.83-4.51 [facility] Comment on above: Performed By: #### L 503.6005, L100.0100, L500.4050 ####[facility] [address] [place], [address] Absolute Neut 5.3 X10 3/uL Normal 2.0-7.7 [facility] Comment on above: Performed By: #### L 503.6005, L100.0100, L500.4050 ####[facility] [address] [place], [address] Basophils/100 WBC (Bld) 0.4 % Normal 0-1 [facility] Comment on above: Performed By: #### L 503.6005, L100.0100, L500.4050 ####[facility] [address] [place], [address] Eosinophils/100 WBC (Bld) 0.9 % Normal 0-5 [facility] Comment on above: Performed By: #### L 503.6005, L100.0100, L500.4050 ####[facility] [address] [place], [address] Erythrocyte distribution width (RBC) [Ratio] 13.8 % Normal 11.6-14.6 [facility] Comment on above: Performed By: #### L 503.6005, L100.0100, L500.4050 ####[facility] [address] [place], [address] Hematocrit (Bld) [Volume fraction] 28.2 % Low 37-47 [facility] Comment on above: Performed By: #### L 503.6005, L100.0100, L500.4050 ####[facility] [address] [place], [address] Hemoglobin (Bld) [Mass/Vol] 9.5 g/dL Low 12.0-15.0 [facility] Comment on above: Performed By: #### L 503.6005, L100.0100, L500.4050 ####[facility] [address] [place], [address] IG% 0.900 Normal 0.0-0.9 [facility] Comment on above: Result Comment: IG% - Immature Granulocytes (promyelocytes, myelocytes andmetamyelocytes) > 1% indicates that a LEFT SHIFT is Present. Performed By: #### L 503.6005, L100.0100, L500.4050 ####[facility] [address] [place], [address] Lymphocytes/100 WBC (Bld) 14.4 % Low 19-41 [facility] Comment on above: Performed By: #### L 503.6005, L100.0100, L500.4050 ####[facility] [address] [place], [address] MCH (RBC) [Entitic mass] 32.3 pg High 27.0-32.0 [facility] Comment on above: Performed By: #### L 503.6005, L100.0100, L500.4050 ####[facility] [address] [place], [address] MCHC (RBC) [Mass/Vol] 33.7 g/dL Normal 32-36 [facility] Comment on above: Performed By: #### L 503.6005, L100.0100, L500.4050 ####[facility] [address] [place], [address] MCV (RBC) [Entitic vol] 95.9 fL Normal 81-99 [facility] Comment on above: Performed By: #### L 503.6005, L100.0100, L500.4050 ####[facility] [address] [place], [address] Monocytes/100 WBC (Bld) 5.8 % Normal 0-10 [facility] Comment on above: Performed By: #### L 503.6005, L100.0100, L500.4050 ####[facility] [address] [place], [address] Neutrophils/100 WBC (Bld) 77.6 % High 47-70 [facility] Comment on above: Performed By: #### L 503.6005, L100.0100, L500.4050 ####[facility] [address] [place], [address] Nucleated RBC (Bld) [#/Vol] 0 10*3/uL Normal 0-5 [facility] Comment on above: Performed By: #### L 503.6005, L100.0100, L500.4050 ####[facility] [address] [place], [address] Platelet mean volume (Bld) [Entitic vol] 10.4 fL Normal 6.2-12.0 [facility] Comment on above: Performed By: #### L 503.6005, L100.0100, L500.4050 ####[facility] [address] [place], [address] Platelets (Bld) [#/Vol] 136 10*3/uL Low 150-450 [facility] Comment on above: Performed By: #### L 503.6005, L100.0100, L500.4050 ####[facility] [address] [place], [address] RBC (Bld) [#/Vol] 2.94 10*6/uL Low 4.2-5.4 [facility] Comment on above: Performed By: #### L 503.6005, L100.0100, L500.4050 ####[facility] [address] [place], [address] RDW SD 48.8 fl High 35.1-43.9 [facility] Comment on above: Performed By: #### L 503.6005, L100.0100, L500.4050 ####[facility] [address] [place], [address] WBC (Bld) [#/Vol] 6.9 10*3/uL Normal 4.4-11.0 [facility] Comment on above: Performed By: #### L 503.6005, L100.0100, L500.4050 ####[facility] [address] [place], [address] CO2 (BldV) [Moles/Vol]Ordere d By: Abhiasha Pina on 07-05-2025 CO2 [Moles/Vol] 17 mmol/L Low 23-33 [facility] Carbon dioxide, total [Moles /volume] in Central venous bloodOrdered By: Abhiasha Ferreirao on 07-05-2025 CO2 [Moles/Vol] 15.9 mmol/L Low 21.0-32.0 [facility] Chest PA and Lateralon 07-05 Chest PA and Lateral Normal [facility] Chloride assayOrdered By: Ug o Pina on 07-05-2025 Chloride [Moles/Vol] 101 mmol/L 98-108 [facility] Comprehensive Metabolic Prof ilon 07-05-2025 Albumin [Mass/Vol] 3.3 g/dL Low 3.5-5.0 [facility] Comment on above: Performed By: #### L 503.6005, L100.0100, L500.4050 ####[facility] [address] [place], [address] Albumin/Globulin [Mass ratio] 0.9 {ratio} Normal 0.9-2.4 [facility] Comment on above: Performed By: #### L 503.6005, L100.0100, L500.4050 ####[facility] [address] [place], [address] ALK PHOS 183 U/L High 35-104 [facility] Comment on above: Performed By: #### L 503.6005, L100.0100, L500.4050 ####[facility] [address] [place], [address] ALT [Catalytic activity/Vol] 26 U/L Normal <=34 [facility] Comment on above: Performed By: #### L 503.6005, L100.0100, L500.4050 ####[facility] [address] [place], [address] AST [Catalytic activity/Vol] 19 U/L Normal <=31 [facility] Comment on above: Performed By: #### L 503.6005, L100.0100, L500.4050 ####[facility] [address] [place], [address] Bilirubin [Mass/Vol] 0.57 mg/dL Normal 0.00-1.30 [facility] Comment on above: Performed By: #### L 503.6005, L100.0100, L500.4050 ####[facility] [address] [place], [address] BUN/CRE 20.7 RATIO High 10-20 [facility] Comment on above: Performed By: #### L 503.6005, L100.0100, L500.4050 ####[facility] [address] [place], [address] Calcium [Mass/Vol] 8.3 mg/dL Normal 7.6-11.0 [facility] Comment on above: Performed By: #### L 503.6005, L100.0100, L500.4050 ####[facility] [address] [place], [address] Chloride [Moles/Vol] 98 mmol/L Normal 98-108 [facility] Comment on above: Performed By: #### L 503.6005, L100.0100, L500.4050 ####[facility] [address] [place], [address] CO2 [Moles/Vol] 15.0 mmol/L Low 21.0-32.0 [facility] Comment on above: Performed By: #### L 503.6005, L100.0100, L500.4050 ####[facility] [address] [place], [address] Creatinine [Mass/Vol] 1.98 mg/dL High 0.70-1.20 [facility] Comment on above: Performed By: #### L 503.6005, L100.0100, L500.4050 ####[facility] [address] [place], [address] ECRCL 51.75 ml/min Normal 50-250 [facility] Comment on above: Performed By: #### L 503.6005, L100.0100, L500.4050 ####[facility] [address] [place], [address] GAP 15 Normal 5-15 [facility] Comment on above: Performed By: #### L 503.6005, L100.0100, L500.4050 ####[facility] [address] [place], [address] GFR/1.73 sq M.predicted among non-blacks MDRD (S/P/Bld) [Vol rate/Area] 32 mL/min/{1.73_m2} Low >60 [facility] Comment on above: Result Comment: mL/m in/1.73m2 CKD-EPI Creatinine Equation (2020) Performed By: #### L 503.6005, L100.0100, L500.4050 ####[facility] [address] [place], [address] Globulin (S) [Mass/Vol] 3.7 g/dL Normal 2.2-4.2 [facility] Comment on above: Performed By: #### L 503.6005, L100.0100, L500.4050 ####[facility] [address] [place], [address] Glucose [Mass/Vol] 533 mg/dL Invalid Interpretation Code 70-99 [facility] Comment on above: Result Comment: Crit ical Result(s) Called at: 1907 by:??MIGUELITO CEDILLO Results read back by same. Performed By: #### L 503.6005, L100.0100, L500.4050 ####[facility] [address] [place], [address] Potassium [Moles/Vol] 3.8 mmol/L Normal 3.3-5.1 [facility] Comment on above: Performed By: #### L 503.6005, L100.0100, L500.4050 ####[facility] [address] [place], [address] Sodium [Moles/Vol] 128 mmol/L Low 133-145 [facility] Comment on above: Performed By: #### L 503.6005, L100.0100, L500.4050 ####[facility] [address] [place], [address] T PROT 7.1 g/dL Normal 5.9-8.4 [facility] Comment on above: Performed By: #### L 503.6005, L100.0100, L500.4050 ####[facility] [address] [place], [address] Urea nitrogen [Mass/Vol] 41 mg/dL High 4-19 [facility] Comment on above: Performed By: #### L 503.6005, L100.0100, L500.4050 ####[facility] [address] [place], [address] Electrolyte Panelon 07-05-20 25 Chloride [Moles/Vol] 101 mmol/L Normal 98-108 [facility] Comment on above: Performed By: #### L 503.6030, L501.5294 ####[facility] [address] [place], [address] CO2 [Moles/Vol] 15.9 mmol/L Low 21.0-32.0 [facility] Comment on above: Performed By: #### L 503.6030, L501.5294 ####[facility] [address] [place], [address] GAP 13 Normal 5-15 [facility] Comment on above: Performed By: #### L 503.6030, L501.5294 ####[facility] [address] [place], [address] Potassium [Moles/Vol] 3.6 mmol/L Normal 3.3-5.1 [facility] Comment on above: Performed By: #### L 503.6030, L501.5294 ####[facility] [address] [place], [address] Sodium [Moles/Vol] 130 mmol/L Low 133-145 [facility] Comment on above: Performed By: #### L 503.6030, L501.5294 ####[facility] [address] [place], [address] Chloride [Moles/Vol] 101 mmol/L Normal 98-108 [facility] Comment on above: Performed By: #### L 501.5294 ####[facility] [address] [place], [address] CO2 [Moles/Vol] 17.3 mmol/L Low 21.0-32.0 [facility] Comment on above: Performed By: #### L 501.5294 ####[facility] [address] [place], [address] GAP 11 Normal 5-15 [facility] Comment on above: Performed By: #### L 501.5294 ####[facility] [address] [place], [address] Potassium [Moles/Vol] 3.6 mmol/L Normal 3.3-5.1 [facility] Comment on above: Performed By: #### L 501.5294 ####[facility] [address] [place], [address] Sodium [Moles/Vol] 130 mmol/L Low 133-145 [facility] Comment on above: Performed By: #### L 501.5294 ####[facility] [address] [place], [address] Emergency Department Summary on 07-05-2025 Emergency Department Summary Normal [facility] Eosinophil percentageOrdered By: Abhi Pina on 07-05-2025 Eosinophils/100 WBC (Bld) 0.9 % 0-5 [facility] Erythrocyte distribution wid th ratioOrdered By: Abhiasha Pina on 07-05-2025 Erythrocyte distribution width (RBC) [Ratio] 13.8 % 11.6-14.6 [facility] Erythrocyte distribution wid th standard deviationOrdered By: Abhi Pina on 07-05-2025 Erythrocyte distribution width (RBC) [Ratio] 48.8 fl High 35.1-43.9 [facility] Ferritinon 07-05-2025 Ferritin [Mass/Vol] 601 ng/mL High 22-378 [facility] Comment on above: Performed By: #### L 503.6550, L501.7300 ####[facility] [address] [place], [place], [address] Glomerular filtration rate ( GFR) estimation/1.73 sq m using serum, plasma, or whole bOrdered By: Abhi Pina on 07-05-2025 GFR/1.73 sq M.predicted among non-blacks MDRD (S/P/Bld) [Vol rate/Area] 32 mL/min/{1.73_m2} Low >60 [facility] Comment on above: mL/min/1.73m2 CKD-EP I Creatinine Equation (2020) [facility] deOrdered By: Shana Mendoza on 07-05-2025 Glucose [Mass/Vol] 265 mg/dL High 74-106 [facility] Comment on above: MANAGEMENT OF PATIEN T CARE PER NURSING PROTOCOL H AND P Exam - Hospitaliston 07-05-2025 H&P Exam - Hospitalist Normal [facility] Hematocrit Auto (Bld) [Volum e fraction]Ordered By: Abhi Pina on 07-05-2025 Hematocrit (Bld) [Volume fraction] 28.2 % Low 37-47 [facility] Hemoglobin measurementOrdere d By: Abhi Pina on 07-05-2025 Hemoglobin (Bld) [Mass/Vol] 9.5 g/dL Low 12.0-15.0 [facility] Immature granulocytes/100 WB C Auto (Bld)Ordered By: Abhi Pina on 07-05-2025 Immature granulocytes/100 WBC (Bld) 0.900 % 0.0-0.9 [facility] Comment on above: IG% - Immature Granu locytes (promyelocytes, myelocytes and metamyelocytes) > 1% indicates that a LEFT SHIFT is Present. Iron measurement (mass/mass) Ordered By: Shana Mendoza on 07-05-2025 Iron (Unsp spec) [Mass/Mass] 12 ug/dL Low 50-170 [facility] Ketones Test strip Ql (U)Ord ered By: Abhi Pina on 07-05-2025 Ketones Ql (U) Negative Negative [facility] Laboratory - Chemistry and C hemistry - challengeOrdered By: Abhi Pina on 07-05-2025 AST [Catalytic activity/Vol] 19 U/L <32 [facility] Lactic Acidon 07-05-2025 Lactate [Moles/Vol] 1.5 mmol/L Normal 0.0-2.0 [facility] Comment on above: Performed By: #### L 503.6005 ####[facility] [address] [place], [place], [address] Lactate [Moles/Vol] 2.2 mmol/L Invalid Interpretation Code 0.0-2.0 [facility] Comment on above: Order Comment: Y Result Comment: Crit ical Result(s) Called at: 1907 by:??MIGUELITO CEDILLO Results read back by same. Performed By: #### L 503.6005, L100.0100, L500.4050 ####[facility] [address] [place], [place], [address] Lactic acid measurementOrder ed By: Abhi Pina on 07-05-2025 Lactate [Moles/Vol] 1.5 mmol/L 0.0-2.0 [facility] MCV (mean corpuscular volume ) determinationOrdered By: Abhi Pina on 07-05-2025 MCV (RBC) [Entitic vol] 95.9 fL 81-99 [facility] Magnesiumon 07-05-2025 Magnesium [Mass/Vol] 2.2 mg/dL Normal 1.5-2.2 [facility] Comment on above: Performed By: #### L 501.6901, L501.5200 ####[facility] [address] [place], [place], [address] Magnesium measurement (mass/ volume)Ordered By: Abhi Pina on 07-05-2025 Magnesium (Unsp spec) [Mass/Vol] 2.2 mg/dL 1.5-2.2 [facility] Mean corpuscular hemoglobin (MCH) determinationOrdered By: Abhi Pina on 07-05-2025 MCH (RBC) [Entitic mass] 32.3 pg High 27.0-32.0 [facility] Mean corpuscular hemoglobin concentration (MCHC) determinationOrdered By: Abhi Pina on 07-05-2025 MCHC (RBC) [Mass/Vol] 33.7 g/dL 32-36 [facility] Mean platelet volume determi nationOrdered By: Abhi Pina on 07-05-2025 Platelet mean volume (Bld) [Entitic vol] 10.4 fL 6.2-12.0 [facility] Microscopic analysis of urin e for red blood cells (RBC)Ordered By: Abhi Pina on 07-05-2025 Microscopic analysis of urine for red blood cells (RBC) 5-10 SEEN /hpf 0-5 [facility] Monocyte percentageOrdered B y: Abhi Pina on 07-05-2025 Monocytes/100 WBC (Bld) 5.8 % 0-10 [facility] Mucus LM Ql (Urine sed)Order ed By: Abhi Pina on 07-05-2025 Mucus Ql (Urine sed) 0 SEEN /hpf [facility] Neutrophil percentageOrdered By: Abhi Pina on 07-05-2025 Neutrophils/100 WBC (Bld) 77.6 % High 47-70 [facility] Nitrite Test strip Ql (U)Ord ered By: Abhi Pina on 07-05-2025 Nitrite Ql (U) Negative Negative [facility] No Panel InformationOrdered By: Shana Mendoza on 07-05-2025 Unsaturated Iron Binding Capacity 154 ug/dL Low 228-428 [facility] 154 ug/dL Low 228-428 [facility] No Panel InformationOrdered By: Abhi Pina on 07-05-2025 Blood Gas Sample Site Not entered [facility] Blood Gas Specimen Type SHIRA [facility] Oxygen Delivery Device Not entered [facility] SHIRA [facility] Not entered [facility] Nucleated red blood cell per centageOrdered By: Abhi Pina on 07-05-2025 Nucleated RBC/100 WBC (Bld) [Ratio] 0 % 0-5 [facility] Osmolality, Serumon 07-05-20 25 OSMOLALITY,SER 307 mOsm/KG High 275-295 [facility] Comment on above: Performed By: #### L 503.6550, L501.7300 ####[facility] [address] [place], [address] Phosphoruson 07-05-2025 Phosphate [Mass/Vol] 3.0 mg/dL Normal 2.7-4.5 [facility] Comment on above: Performed By: #### L 501.2300 ####[facility] [address] [place], [address] Platelet countOrdered By: Min Pina on 07-05-2025 Platelets (Bld) [#/Vol] 136 10*3/uL Low 150-450 [facility] Potassium measurement (mass/ volume)Ordered By: Abhi Pina on 07-05-2025 Potassium (Unsp spec) [Mass/Vol] 3.6 mmol/L 3.3-5.1 [facility] Protein Test strip Ql (U)Ord ered By: Abhi Pina on 07-05-2025 Protein Ql (U) 30 mg/dl High Negative [facility] RBC Auto (Bld) [#/Vol]Ordere d By: Abhi Pina on 07-05-2025 RBC (Bld) [#/Vol] 2.94 10*6/uL Low 4.2-5.4 [facility] Serum creatinine measurement (mass/volume)Ordered By: Abhi Pina on 07-05-2025 Creatinine [Mass/Vol] 1.98 mg/dL High 0.70-1.20 [facility] Serum globulin measurementOr dered By: Abhi Pina on 07-05-2025 Globulin (S) [Mass/Vol] 3.7 g/dL 2.2-4.2 [facility] Serum glucose measurement (m ass/volume)Ordered By: Abhi Pina on 07-05-2025 Glucose [Mass/Vol] 533 mg/dL High 70-99 [facility] Comment on above: Critical Result(s) C alled at: 1907 by: MIGUELITO CEDILLO Results read back by same. Serum or plasma alanine arizmendi otransferase (ALT) measurementOrdered By: Abhi Pina on 07-05-2025 ALT [Catalytic activity/Vol] 26 U/L <35 [facility] Serum or plasma albumin sharron urement (mass/volume)Ordered By: Abhi Pina on 07-05-2025 Albumin [Mass/Vol] 3.3 g/dL Low 3.5-5.0 [facility] Serum or plasma albumin/glob ulin mass ratioOrdered By: Abhi Pina on 07-05-2025 Albumin/Globulin [Mass ratio] 0.9 {ratio} 0.9-2.4 [facility] Serum or plasma alkaline toyin sphatase measurementOrdered By: Abhi Pina on 07-05-2025 ALP [Catalytic activity/Vol] 183 U/L High 35-104 [facility] Serum or plasma calcium sharron urement (mass/volume)Ordered By: Abhi Pina on 07-05-2025 Calcium [Mass/Vol] 8.3 mg/dL 7.6-11.0 [facility] Serum or plasma ferritin jacob surement (mass/volume)Ordered By: Shana Mendoza on 07-05-2025 Ferritin [Mass/Vol] 601 ng/mL High 22-378 [facility] Serum or plasma iron saturat ion measurement (mass fraction)Ordered By: Shana Mendoza on 07-05-2025 Iron saturation [Mass fraction] 7.2 % Low 13-59 [facility] Comment on above: Previous reported re sult: 7.0 %Edited by: LIS on 07/06/25:0028 AMENDED REPORT 07/06/25 0028 IRON SATURATION previously reported as: 7.0 L % TIBC DID NOT CROSS OVER FROM [employer] Serum or plasma urea nitroge n measurement (mass/volume)Ordered By: Abhi Pina on 07-05-2025 Urea nitrogen [Mass/Vol] 41 mg/dL High 4-19 [facility] Sodium levelOrdered By: Abhi Pina on 07-05-2025 Sodium [Moles/Vol] 130 mmol/L Low 133-145 [facility] Squamous epithelial cells de tection in urine sediment by light microscopyOrdered By: Abhi Pina on 07-05-2025 Epithelial cells.squamous LM Ql (Urine sed) 5-10 SEEN /hpf 5-10 [facility] Total proteinOrdered By: Abhi Pina on 07-05-2025 Protein [Mass/Vol] 7.1 g/dL 5.9-8.4 [facility] Urinalysis, Completeon 07-05 BACTERIA 3+ /hpf Normal None Seen [facility] Comment on above: Order Comment: CLEAN CATCH Performed By: #### L 400.0001 ####[facility] [address] [place], [address] EPI,SQUAMOUS 5-10 SEEN Normal 5-10 [facility] Comment on above: Order Comment: CLEAN CATCH Performed By: #### L 400.0001 ####[facility] [address] [place], [address] RBC 5-10 SEEN Normal 0-5 [facility] Comment on above: Order Comment: CLEAN CATCH Performed By: #### L 400.0001 ####[facility] [address] [place], [address] WBC 10-25 SEEN Normal 0-5 [facility] Comment on above: Order Comment: CLEAN CATCH Performed By: #### L 400.0001 ####[facility] [address] [place], [address] Mucus Ql (Urine sed) 0 SEEN Normal [facility] Comment on above: Order Comment: CLEAN CATCH Performed By: #### L 400.0001 ####[facility] [address] [place], [address] Urine clarityOrdered By: Abhi Pina on 07-05-2025 Clarity (U) Sl. Cloudy Clear [facility] Urine color determinationOrd ered By: Abhi Pina on 07-05-2025 Color (U) Straw Yellow [facility] Urine cultureOrdered By: Abhi Pina on 07-05-2025 Bacteria identified Cx Nom (U) Escherichia coli Abnormal [facility] Urine glucose detectionOrder ed By: Abhi Pina on 07-05-2025 Glucose Ql (U) 1000 mg/dl High Normal [facility] Urine leukocyte esterase det ection by dipstickOrdered By: Abhi Pina on 07-05-2025 Leukocyte esterase Test strip Ql (U) 100 /ul High Negative [facility] Urine pHOrdered By: Abhi barry on 07-05-2025 pH (U) 6.0 [pH] 5.0 - 8.0 [facility] Urine sediment bacteria coun t by microscopy (number/high power field)Ordered By: Abhi Pina on 07-05-2025 Bacteria LM.HPF (Urine sed) [#/Area] 3 /[HPF] None Seen [facility] Urine specific gravity measu rementOrdered By: Abhiasha Pina on 07-05-2025 Specific gravity (U) [Rel density] 1.010 1.002-1.030 [facility] Urine urobilinogen measureme ntOrdered By: Abhiasha Pina on 07-05-2025 Urobilinogen Ql (U) Normal mg/dl Normal [facility] Venous Blood Gason 5 Blood Gas Type SHIRA Normal [facility] Comment on above: Performed By: #### L 9000.0810 ####[facility] [address] [place], [address] CO2 [Moles/Vol] 17 mmol/L Low 23-33 [facility] Comment on above: Performed By: #### L 9000.0810 ####[facility] [address] [place], [address] HCO3 (Bld) [Moles/Vol] 16 mmol/L Low 22-26 [facility] Comment on above: Performed By: #### L 900.0810 ####[facility] [address] [place], [address] O2 Delivery Dev Not entered Normal [facility] Comment on above: Performed By: #### L 900.0810 ####[facility] [address] [place], [address] SITE Not entered Normal [facility] Comment on above: Performed By: #### L 9000.0810 ####[facility] [address] [place], [address] VBG BE -10 mmol/L Low -1.0-3.5 [facility] Comment on above: Performed By: #### L 9000.0810 ####[facility] [address] [place], [address] VBG pCO2 31.6 mmHg Low 41-51 [facility] Comment on above: Performed By: #### L 9000.0810 ####[facility] [address] [place], [address] VBG pH 7.32 Normal 7.32-7.42 [facility] Comment on above: Performed By: #### L 9000.0810 ####[facility] [address] [place], [address] VBG PO2 77 mmHg High 25-40 [facility] Comment on above: Performed By: #### L 9000.0810 ####[facility] [address] [place], [address] VBG SO2 94 High 50-70 [facility] Comment on above: Performed By: #### L 9000.0810 ####[facility] [address] [place], [address] Venous blood base excess jacob surementOrdered By: Abhi Pina on 07-05-2025 Base excess Calc (BldV) [Moles/Vol] -10 mmol/L Low -1.0-3.5 [facility] Venous blood bicarbonate jacob surementOrdered By: Abhi Pina on 07-05-2025 HCO3 (Bld) [Moles/Vol] 16 mmol/L Low 22-26 [facility] Venous blood oxygen saturati on measurementOrdered By: Abhi Pina on 07-05-2025 Oxygen saturation in Blood 94 % High 50-70 [facility] Venous blood pH measurementO rdered By: Abhi Pina on 07-05-2025 pH (BldV) 7.32 [pH] 7.32-7.42 [facility] Venous blood partial pressur e of carbon dioxide measurementOrdered By: Abhi Pina on 07-05-2025 CO2 (BldV) [Partial pressure] 31.6 mm[Hg] Low 41-51 [facility] Venous blood partial pressur e of oxygen measurementOrdered By: Abhi Pina on 07-05-2025 Oxygen (BldV) [Partial pressure] 77 mm[Hg] High 25-40 [facility] White blood cell (WBC) count Ordered By: Abhi Pina on 07-05-2025 WBC (Bld) [#/Vol] 6.9 10*3/uL 4.4-11.0 [facility] White blood cell countOrdere d By: Abhi Pina on 07-05-2025 White blood cell count 10-25 SEEN /hpf 0-5 [facility] Orthopedic Visit Reporton Orthopedic Visit Report Normal [facility] Bedside Glucoseon 06-23-2025 FINGERSTICK GLU 210 mg/dL High 74-106 [facility] Comment on above: Result Comment: [place] OF PATIENT CARE PER NURSING PROTOCOL Performed By: #### L 501.080 ####[facility] [address] [place], [address] Discharge Instructionon 06-05 Discharge Instruction Normal [facility] de[facility] By: Brett Quiroga on 06-23-2025 Glucose [Mass/Vol] 210 mg/dL High 74-106 [facility] Comment on above: MANAGEMENT OF PATIEN T CARE PER NURSING PROTOCOL MR/POSTOP.ANEon 06-23-2025 MR/POSTOP.ANE Normal [facility] Operative Reporton Operative Report Normal [facility] ,Urineon 06-23-2025 Beta HCG ( test) Ql (U) Negative Normal [facility] Comment on above: Result Comment: Very dilute urine specimens, as indicated by a low specificgravity, may not contain screening representative levels of hCG.If is still suspected, a first morning urinespecimen should be collected 48 hours later and tested. Performed By: #### L 400.7600 ####[facility] [address] [place], [address] Urine testOrdered By: Woody Choudhary on 06-23-2025 HCG ( test) Ql (U) Negative [facility] Comment on above: Very dilute urine sp ecimens, as indicated by a low specificgravity, may not contain screening representative levels of hCG. If is still suspected, a first morning urinespecimen should be collected 48 hours later and tested. Chiropractic Reporton 2024 Chiropractic Report Normal [facility] MR/PAT.ANEon 06-15-2025 MR/PAT.ANE Normal [facility] Electrocardiogram reportOrde red By: Vin Montes on 06-11-2025 EKG study [facility] [address] [place] [address] 12 Lead EKG 06/10/25 1247 MR#: [id number] Acct: [id number] Name: TORI GRAY Rep #:[id number] : 1980 44 From: Vin Montes MD Attending Dr: Dr. Brett Quiroga MD Status: PRE PRC Ordering Dr: Woody Choudhary MD Date: Location: [facility] Sex: F C Admitted: [...] ECG Confirmed by VIN MONTES MD ([id number]), editor newspaper PRISCILA FERRERA ([id number]) on 06/11/2025 5:54:48 AM Referred By: Brett Quiroga Confirmed By: VIN MONTES MD 06/11/25 0554 Date _ Vin Montes MD CC: Dr. Woody Choudhary MD; Dr. Brett Quiroga MD; Dr. Ivette Grimes MD ~ Signed [facility] Work Phone: 12 Lead EKGon 06-10-2025 12 Lead EKG Normal [facility] LDL CHOLESTEROL DIRECT (FOR REMOTE [facility] USE)on 06-10-2025 [facility] LDL, Directon 06-10-2025 Cholesterol in LDL [Mass/Vol] 96 mg/dL Normal 0-99 [facility] Comment on above: Result Comment: Perf ormed at: [facility] [place] [id number] Director: José Antonio Aldana PhD, Phone: [phone] Performed By: #### L 3300.4490, L501.9985 ####[facility] [address] [place], [place], [address] COMMENT TNP Normal . [facility] Comment on above: Performed By: #### L 3300.4490, L501.9985 ####[facility] [address] [place], [place], [address] CNPNon 06-09-2025 [facility] Telephone (FAMWS) ---- TORI GRAY ([id number]) 1980 F Date Time Provider Department 06/09[facility] During your visit today, we recorded the following information about you: Nirmala Storey LPN 06/09/2025 10:21 AM Signed HgbA1C from [facility] 7.4 Ivette Grimes MD 06/09/2025 10:49 AM Signed Lets increase the ozempic to 2 mg a day. Call sugars in two weeks. Watch the diet. Nirmala Storey LPN 06/09/2025 3:25 PM Addendum MyChart message sent to the patient. Little Murphy MA 06/10/2025 2:17 PM Signed LDL [...] microalbuminuria, with long-term current use of insulin ([facility]) [E11.29, R80.9, Z79.4] Order(s):HBA1C (OUTSIDE) [[id number]] Order #: [id number] semaglutide (OZEMPIC) 2 mg/dose (8 mg/3 mL) pen injectorInject 2 mg subcutaneously one time a week.Disp: 3 mLRfl: 5 LDL CHOLESTEROL DIRECT (FOR REMOTE [facility] USE) [SQRLDL] Order #: [id number] Prescriptions as of 06/18/2025 - omeprazole (PRILOSEC) [...] tablet by mouth once daily. - Ipratropium [place] (ATROVENT) 21 mcg (0.03 %) nasal spray [...] DM - Controlled E11.9 Insulin: No - Rdnxbunt-Uo-Ewv-Fe- FA tab Take 1 tablet by mouth [...] general medical examination at a [facility]*01/23/2010 12/06/2012 Class: Chronic Routine gynecological examination [Z01.419] 01/23/2010 02/22/2014 Class: Chronic Morbid obesity (HCC) [E66.01] 01/23/2010 06/07/2025 Lumbar Disc Disorder [M51.9] 02/16/2010 Routine general medical examination at [facility]*12/06/2012 02/22/2014 Anxiety [F41.9] 06/07/2014 Type 2 [...] [I10] 10/ (more content not included)... Normal [facility] Cholesterol in LDL Direct as say [Mass/Vol]Ordered By: Ivette Grimes on 06-09-2025 Cholesterol in LDL [Mass/Vol] 96 mg/dL 0-99 [facility] Comment on above: Performed at: [address] [id number] Director: José Antonio Aldana PhD, Phone: [phone] HBA1C (OUTSIDE)on 06-09-2025 [facility] Hemoglobin A1con 06-09-2025 HbA1c (Bld) [Mass fraction] 7.4 % High <=5.6 [facility] Comment on above: Result Comment: Norm al < 5.7 % Prediabetic 5.7 - 6.4 % Diabetic >or= 6.5 % Please note range changes. Performed By: #### L 3300.4490, L501.9985 ####[facility] [address] [place], [address] Hemoglobin A1c percentageOrd ered By: Ivette Grimes on 06-09-2025 HbA1c (Bld) [Mass fraction] 7.4 % High <5.7 [facility] Comment on above: Normal < 5.7 % Predi abetic 5.7 - 6.4 % Diabetic >or= 6.5 % Please note range changes. Laboratory - Miscellaneous t estsOrdered By: Ivette Grimes on 06-09-2025 Service comment (Unsp spec) [Interp] TNP [facility] Comment on above: Test not performed CN[facility]on 06-07-20[facility] TORI [facility]RAY ([id number]) 1980 F Date Time Provider Department 06/07/25 6:40 PM [facility] During your visit today, we recorded [...] with Dr. Quiroga on June 23 at [facility]. - Keep your neurology appointment on [...] for June [address] Quiroga at [facility]. - Follow-up appointment with Dr. Camacho [...] an upcoming appointment for Botox treatment on October 1st. LETITIA: - Uses BiPAP regularly. MEDICATIONS: Current [...] 1 tablet by mouth once daily. Ipratropium [place] (ATROVENT) 21 mcg (0.03 %) nasal spray [...] 1 Each by INTRAUTERINE route as directed. Lsszmztu-Qc-Ocs-Fe- FA tab Take 1 tablet by mouth [...] blood sugar(s) (more content not included)... Normal [facility] Absolute lymphocyte countOrd ered By: HEALTH ASSESSMENT on 06-05-2025 Lymphocytes Auto (Unsp spec) [#/Vol] 2.43 10*3/uL 0.83-4.51 [facility] Absolute neutrophil countOrd ered By: HEALTH ASSESSMENT on 06-05-2025 Neutrophils (Bld) [#/Vol] 6.3 10*3/uL 2.0-7.7 [facility] Absolute nucleated red blood cell countOrdered By: HEALTH ASSESSMENT on 06-05-2025 Nucleated RBC (Bld) [#/Vol] 0.00 10*3/uL 0-5 [facility] Anion gap in Serum or Plasma Ordered By: HEALTH ASSESSMENT on 06-05-2025 Anion gap [Moles/Vol] 14 mmol/L 5-15 [facility] BUN/creatinine ratioOrdered By: HEALTH ASSESSMENT on 06-05-2025 Urea nitrogen/Creatinine [Mass ratio] 10.6 mg/mg 10-20 [facility] Bilirubin Test strip Ql (U)O rdered By: HEALTH ASSESSMENT on 06-05-2025 Bilirubin Ql (U) Negative Negative [facility] Bilirubin directOrdered By: HEALTH ASSESSMENT on 06-05-2025 Bilirubin.direct [Mass/Vol] 0.20 mg/dL 0.00-0.30 [facility] Bilirubin, totalOrdered By: HEALTH ASSESSMENT on 06-05-2025 Bilirubin [Mass/Vol] 0.51 mg/dL 0.00-1.30 [facility] CBC, Employeeon 06-05-2025 Absolute Lymph 2.43 X10 3/uL Normal 0.83-4.51 [facility] Comment on above: Performed By: #### L 400.0100, L100.0200, L500.2900 ####[facility] [address] [place], [place], [id number] Absolute Neut 6.3 X10 3/uL Normal 2.0-7.7 [facility] Comment on above: Performed By: #### L 400.0100, L100.0200, L500.2900 ####[facility] [address] [place], [address] Basophils/100 WBC (Bld) 0.9 % Normal 0-1 [facility] Comment on above: Performed By: #### L 400.0100, L100.0200, L500.2900 ####[facility] [address] [place], [address] Eosinophils/100 WBC (Bld) 1.8 % Normal 0-5 [facility] Comment on above: Performed By: #### L 400.0100, L100.0200, L500.2900 ####[facility] [address] [place], [address] Erythrocyte distribution width (RBC) [Ratio] 14.5 % Normal 11.6-14.6 [facility] Comment on above: Performed By: #### L 400.0100, L100.0200, L500.2900 ####[facility] [address] [place], [address] Hematocrit (Bld) [Volume fraction] 39.2 % Normal 37-47 [facility] Comment on above: Performed By: #### L 400.0100, L100.0200, L500.2900 ####[facility] [address] [place], [address] Hemoglobin (Bld) [Mass/Vol] 13.5 g/dL Normal 12.0-15.0 [facility] Comment on above: Performed By: #### L 400.0100, L100.0200, L500.2900 ####[facility] [address] [place], [address] Lymphocytes/100 WBC (Bld) 25.5 % Normal 19-41 [facility] Comment on above: Performed By: #### L 400.0100, L100.0200, L500.2900 ####[facility] [address] [place], [address] MCH (RBC) [Entitic mass] 32.4 pg High 27.0-32.0 [facility] Comment on above: Performed By: #### L 400.0100, L100.0200, L500.2900 ####[facility] [address] [place], [address] MCHC (RBC) [Mass/Vol] 34.4 g/dL Normal 32-36 [facility] Comment on above: Performed By: #### L 400.0100, L100.0200, L500.2900 ####[facility] [address] [place], [address] MCV (RBC) [Entitic vol] 94.0 fL Normal 81-99 [facility] Comment on above: Performed By: #### L 400.0100, L100.0200, L500.2900 ####[facility] [address] [place], [address] Monocytes/100 WBC (Bld) 3.6 % Normal 0-10 [facility] Comment on above: Performed By: #### L 400.0100, L100.0200, L500.2900 ####[facility] [address] [place], [address] Neutrophils/100 WBC (Bld) 66.2 % Normal 47-70 [facility] Comment on above: Performed By: #### L 400.0100, L100.0200, L500.2900 ####[facility] [address] [place], [address] NRBC # 0.00 10 3/uL Normal 0-5 [facility] Comment on above: Performed By: #### L 400.0100, L100.0200, L500.2900 ####[facility] [address] [place], [address] Nucleated RBC (Bld) [#/Vol] 0 10*3/uL Normal 0-5 [facility] Comment on above: Performed By: #### L 400.0100, L100.0200, L500.2900 ####[facility] [address] [place], [address] Platelet mean volume (Bld) [Entitic vol] 9.6 fL Normal 6.2-12.0 [facility] Comment on above: Performed By: #### L 400.0100, L100.0200, L500.2900 ####[facility] [address] [place], [address] Platelets (Bld) [#/Vol] 192 10*3/uL Normal 150-450 [facility] Comment on above: Performed By: #### L 400.0100, L100.0200, L500.2900 ####[facility] [address] [place], [address] RBC (Bld) [#/Vol] 4.17 10*6/uL Low 4.2-5.4 [facility] Comment on above: Performed By: #### L 400.0100, L100.0200, L500.2900 ####[facility] [address] [place], [address] RDW SD 49.7 fl High 35.1-43.9 [facility] Comment on above: Performed By: #### L 400.0100, L100.0200, L500.2900 ####[facility] [address] [place], [address] WBC (Bld) [#/Vol] 9.5 10*3/uL Normal 4.4-11.0 [facility] Comment on above: Performed By: #### L 400.0100, L100.0200, L500.2900 ####[facility] [address] [place], [address] Calculated very low density lipoprotein (VLDL) cholesterol measurementOrdered By: HEALTH ASSESSMENT on 06-05-2025 Calculated very low density lipoprotein (VLDL) cholesterol measurement 62 mg/dL High 5-40 [facility] Carbon dioxide, total [Moles /volume] in Central venous bloodOrdered By: HEALTH ASSESSMENT on 06-05-2025 CO2 [Moles/Vol] 17.5 mmol/L Low 21.0-32.0 [facility] Chloride assayOrdered By: HE ALTH ASSESSMENT on 06-05-2025 Chloride [Moles/Vol] 105 mmol/L 98-108 [facility] Employee Profileon LDH 188 U/L Normal 84-246 [facility] Comment on above: Performed By: #### L 400.0100, L100.0200, L500.2900 ####[facility] [address] [place], [address] Phosphate [Mass/Vol] 2.2 mg/dL Low 2.7-4.5 [facility] Comment on above: Performed By: #### L 400.0100, L100.0200, L500.2900 ####[facility] [address] [place], [address] URIC 6.9 mg/dL High 2.6-6.0 [facility] Comment on above: Result Comment: The drugs N-Acetylcysteine and Metamizole may falselydepress this assay. Performed By: #### L 400.0100, L100.0200, L500.2900 ####[facility] [address] [place], [address] Erythrocyte distribution wid th ratioOrdered By: HEALTH ASSESSMENT on 06-05-2025 Erythrocyte distribution width (RBC) [Ratio] 14.5 % 11.6-14.6 [facility] Erythrocyte distribution wid th standard deviationOrdered By: HEALTH ASSESSMENT on 06-05-2025 Erythrocyte distribution width (RBC) [Ratio] 49.7 fl High 35.1-43.9 [facility] Glomerular filtration rate ( GFR) estimation/1.73 sq m using serum, plasma, or whole bOrdered By: HEALTH ASSESSMENT on 06-05-2025 GFR/1.73 sq M.predicted among non-blacks MDRD (S/P/Bld) [Vol rate/Area] 94 mL/min/{1.73_m2} >60 [facility] Comment on above: mL/min/1.73m2 CKD-EP I Creatinine Equation (2020) Hematocrit Auto (Bld) [Volum e fraction]Ordered By: HEALTH ASSESSMENT on 06-05-2025 Hematocrit (Bld) [Volume fraction] 39.2 % 37-47 [facility] Hemoglobin measurementOrdere d By: HEALTH ASSESSMENT on 06-05-2025 Hemoglobin (Bld) [Mass/Vol] 13.5 g/dL 12.0-15.0 [facility] Ketones Test strip Ql (U)Ord ered By: HEALTH ASSESSMENT on 06-05-2025 Ketones Ql (U) Negative Negative [facility] LDL calc ser/plasOrdered By: HEALTH ASSESSMENT on 06-05-2025 Cholesterol in LDL [Mass/Vol] 92 mg/dL [facility] Comment on above: Oxbjdravyk=232-176 m g/dL & Higher Qjqq=907 mg/dL or greaterFriedwald Equation for LDL-C Laboratory - Chemistry and C hemistry - challengeOrdered By: HEALTH ASSESSMENT on 06-05-2025 AST [Catalytic activity/Vol] 41 U/L High <32 [facility] Lactate dehydrogenase (LDH) measurementOrdered By: HEALTH ASSESSMENT on 06-05-2025 LDH [Catalytic activity/Vol] 188 U/L 84-246 [facility] MCV (mean corpuscular volume ) determinationOrdered By: HEALTH ASSESSMENT on 06-05-2025 MCV (RBC) [Entitic vol] 94.0 fL 81-99 [facility] Mean corpuscular hemoglobin (MCH) determinationOrdered By: HEALTH ASSESSMENT on 06-05-2025 MCH (RBC) [Entitic mass] 32.4 pg High 27.0-32.0 [facility] Mean corpuscular hemoglobin concentration (MCHC) determinationOrdered By: HEALTH ASSESSMENT on 06-05-2025 MCHC (RBC) [Mass/Vol] 34.4 g/dL 32-36 [facility] Mean platelet volume determi nationOrdered By: HEALTH ASSESSMENT on 06-05-2025 Platelet mean volume (Bld) [Entitic vol] 9.6 fL 6.2-12.0 [facility] Neutrophil percentageOrdered By: HEALTH ASSESSMENT on 06-05-2025 Neutrophils/100 WBC (Bld) 66.2 % 47-70 [facility] Nitrite Test strip Ql (U)Ord ered By: HEALTH ASSESSMENT on 06-05-2025 Nitrite Ql (U) Negative Negative [facility] No Panel InformationOrdered By: HEALTH ASSESSMENT on 06-05-2025 41 U/L High <32 [facility] Nucleated red blood cell per centageOrdered By: HEALTH ASSESSMENT on 06-05-2025 Nucleated RBC/100 WBC (Bld) [Ratio] 0 % 0-5 [facility] Platelet countOrdered By: HE ALTH ASSESSMENT on 06-05-2025 Platelets (Bld) [#/Vol] 192 10*3/uL 150-450 [facility] Potassium measurement (mass/ volume)Ordered By: HEALTH ASSESSMENT on 06-05-2025 Potassium (Unsp spec) [Mass/Vol] 4.0 mmol/L 3.3-5.1 [facility] Protein Test strip Ql (U)Ord ered By: HEALTH ASSESSMENT on 06-05-2025 Protein Ql (U) 100 mg/dl High Negative [facility] RBC Auto (Bld) [#/Vol]Ordere d By: HEALTH ASSESSMENT on 06-05-2025 RBC (Bld) [#/Vol] 4.17 10*6/uL Low 4.2-5.4 [facility] Screening total cholesterol/ high density lipoprotein (HDL) cholesterol ratioOrdered By: HEALTH ASSESSMENT on 06-05-2025 Cholesterol.total/Choles terol in HDL [Mass ratio] 5.63 {ratio} [facility] Serum creatinine measurement (mass/volume)Ordered By: HEALTH ASSESSMENT on 06-05-2025 Creatinine [Mass/Vol] 0.80 mg/dL 0.70-1.20 [facility] Serum globulin measurementOr dered By: HEALTH ASSESSMENT on 06-05-2025 Globulin (S) [Mass/Vol] 3.3 g/dL 2.2-4.2 [facility] Serum glucose measurement (m ass/volume)Ordered By: HEALTH ASSESSMENT on 06-05-2025 Glucose [Mass/Vol] 210 mg/dL High 70-99 [facility] Serum or plasma alanine arizmendi otransferase (ALT) measurementOrdered By: HEALTH ASSESSMENT on 06-05-2025 ALT [Catalytic activity/Vol] 43 U/L High <35 [facility] Serum or plasma albumin sharron urement (mass/volume)Ordered By: HEALTH ASSESSMENT on 06-05-2025 Albumin [Mass/Vol] 4.2 g/dL 3.5-5.0 [facility] Serum or plasma albumin/glob ulin mass ratioOrdered By: HEALTH ASSESSMENT on 06-05-2025 Albumin/Globulin [Mass ratio] 1.3 {ratio} 0.9-2.4 [facility] Serum or plasma alkaline toyin sphatase measurementOrdered By: HEALTH ASSESSMENT on 06-05-2025 ALP [Catalytic activity/Vol] 84 U/L 35-104 [facility] Serum or plasma calcium sharron urement (mass/volume)Ordered By: HEALTH ASSESSMENT on 06-05-2025 Calcium [Mass/Vol] 8.8 mg/dL 7.6-11.0 [facility] Serum or plasma cholesterol in HDL measurement (mass/volume)Ordered By: HEALTH ASSESSMENT on 06-05-2025 Cholesterol in HDL [Mass/Vol] 33 mg/dL Low >40 [facility] Comment on above: National Cholesterol Education Program (NCEP) guidelines:<40 mg/dL: Low HDL-cholesterol (major risk factor for CHD)>= 60 mg/dL: High HDL-cholesterol (negative risk factor for CHD)HDL-cholesterol is affected by a number of factors, e.g. smoking, exercise, hormones, sex and age. Serum or plasma cholesterol measurement (mass/volume)Ordered By: HEALTH ASSESSMENT on 06-05-2025 Cholesterol [Mass/Vol] 187 mg/dL <201 [facility] Comment on above: Cholesterol level, D esirable <200 mg/dLBorderline high cholesterol 200-239 mg/dLHigh cholesterol >=240 mg/dLRecommendations of the NCEP Adult Treatment Panel for the following risk-cutoff thresholds for the [place] population. Serum or plasma urea nitroge n measurement (mass/volume)Ordered By: HEALTH ASSESSMENT on 06-05-2025 Urea nitrogen [Mass/Vol] 9 mg/dL 4-19 [facility] Serum or plasma uric acid me asurement (mass/volume)Ordered By: HEALTH ASSESSMENT on 06-05-2025 Urate [Mass/Vol] 6.9 mg/dL High 2.6-6.0 [facility] Comment on above: The drugs N-Acetylcy steine and Metamizole may falsely depress this assay. Sodium levelOrdered By: HEAL ASSESSMENT on 06-05-2025 Sodium [Moles/Vol] 137 mmol/L 133-145 [facility] Total proteinOrdered By: A [facility] ASSESSMENT on 06-05-2025 Protein [Mass/Vol] 7.5 g/dL 5.9-8.4 [facility] Triglycerides measurementOrd ered By: HEALTH ASSESSMENT on 06-05-2025 Triglyceride [Mass/Vol] 310 mg/dL High <199 [facility] Comment on above: The drugs N-Acetylcy steine and Metamizole may falsely depress this assay. Normal range: <150 mg/dLBorderline High: 150-199 mg/dLHigh: 200-499 mg/dLVery High: >500 mg/dL Urinalysis, Employeeon 06-05 BILIRUBIN URINE Negative Normal Negative [facility] Comment on above: Order Comment: Urine , Random Performed By: #### L 400.0100, L100.0200, L500.2900 ####[facility] [address] [place], [place], [id number] Clarity (U) Sl. Cloudy Normal Clear [facility] Comment on above: Order Comment: Urine , Random Performed By: #### L 400.0100, L100.0200, L500.2900 ####[facility] [address] [place], [address] Color (U) Yellow Normal Yellow [facility] Comment on above: Order Comment: Urine , Random Performed By: #### L 400.0100, L100.0200, L500.2900 ####[facility] [address] [place], [address] GLUCOSE, UR Normal Normal Normal [facility] Comment on above: Order Comment: Urine , Random Performed By: #### L 400.0100, L100.0200, L500.2900 ####[facility] [address] [place], [address] KETONE UR Negative Normal Negative [facility] Comment on above: Order Comment: Urine , Random Performed By: #### L 400.0100, L100.0200, L500.2900 ####[facility] [address] [place], [address] LEUK ESTERASE 500 /ul Abnormal Negative [facility] Comment on above: Order Comment: Urine , Random Performed By: #### L 400.0100, L100.0200, L500.2900 ####[facility] [address] [place], [address] Nitrite Ql (U) Negative Normal Negative [facility] Comment on above: Order Comment: Urine , Random Performed By: #### L 400.0100, L100.0200, L500.2900 ####[facility] [address] [place], [address] OCCULT BLOOD-UR 25 /ul Abnormal Negative [facility] Comment on above: Order Comment: Urine , Random Performed By: #### L 400.0100, L100.0200, L500.2900 ####[facility] [address] [place], [address] pH UR 6.0 Normal 5.0 - 8.0 [facility] Comment on above: Order Comment: Urine , Random Performed By: #### L 400.0100, L100.0200, L500.2900 ####[facility] [address] [place], [address] PROT DIPSTX 100 mg/dl Abnormal Negative [facility] Comment on above: Order Comment: Urine , Random Performed By: #### L 400.0100, L100.0200, L500.2900 ####[facility] [address] [place], [address] SP.GR. DIPSTX 1.015 Normal 1.002-1.030 [facility] Comment on above: Order Comment: Urine , Random Performed By: #### L 400.0100, L100.0200, L500.2900 ####[facility] [address] [place], [address] UROBILI Normal Normal Normal [facility] Comment on above: Order Comment: Urine , Random Performed By: #### L 400.0100, L100.0200, L500.2900 ####[facility] [address] [place], [address] Urine clarityOrdered By: Karla [facility] ASSESSMENT on 06-05-2025 Clarity (U) Sl. Cloudy Clear [facility] Urine color determinationOrd ered By: HEALTH ASSESSMENT on 06-05-2025 Color (U) Yellow Yellow [facility] Urine glucose detectionOrder ed By: HEALTH ASSESSMENT on 06-05-2025 Glucose Ql (U) Normal mg/dl Normal [facility] Urine leukocyte esterase det ection by dipstickOrdered By: HEALTH ASSESSMENT on 06-05-2025 Leukocyte esterase Test strip Ql (U) 500 /ul High Negative [facility] Urine pHOrdered By: HEALTH A SSESSMENT on 06-05-2025 pH (U) 6.0 [pH] 5.0 - 8.0 [facility] Urine specific gravity measu rementOrdered By: HEALTH ASSESSMENT on 06-05-2025 Specific gravity (U) [Rel density] 1.015 1.002-1.030 [facility] Urine urobilinogen measureme ntOrdered By: HEALTH ASSESSMENT on 06-05-2025 Urobilinogen Ql (U) Normal mg/dl Normal [facility] White blood cell (WBC) count Ordered By: HEALTH ASSESSMENT on 06-05-2025 WBC (Bld) [#/Vol] 9.5 10*3/uL 4.4-11.0 [facility] Chiropractic Reporton 2024 Chiropractic Report Normal [facility] Orthopedic Visit Reporton Orthopedic Visit Report Normal [facility] Chiropractic Reporton 2024 Chiropractic Report Normal [facility] Magnetic resonance imaging r eportOrdered By: Salazar Tyson on 04-19-2025 Study report [facility] Services [address] [place], [place] [address] Upper Ext Joint Only(Routine) MR#: [id number] Acct: [id number] Name: TORI GRAY Rep #: [id number] : 1980 F 44 From: Moncho Tyson MD PCP: Dr. Ivette Grimes MD Status: REG C Study:Upper Ext Joint Only(Routine) Date of Exam: 04/17/25 Exam# [id number] Ordering Dr: Brett Quiroga MD PROCEDURE: UPPER [...] Quiroga MD; Dr. Ivette Grimes MD ~ Decal Applier: Signed [facility] Upper Ext Joint Only(Routine )on 04-17-2025 Upper Ext Joint Only(Routine) Normal [facility] CNPNon 04-07-2025 [facility] (FAMWS[facility] ---- TORI GRAY ([id number]) 1980 F Date Time Provider Department 04/07/25 IVETTE GRIMES [facility] During your visit today, we recorded the following information about you: Ivetet rGimes MD 04/07/2025 3:36 PM Signed Requests refill. [...] tablet by mouth once daily. - Ipratropium [place] (ATROVENT) 21 mcg (0.03 %) nasal spray [...] Each by INTRAUTERINE route as directed. - [place]-3 Fatty Acids (FISH OIL) 500 mg cap Take 1 capsule by mouth once daily. - blood sugar diagnostic (BLOOD GLUCOSE TEST) test strip Test blood sugar(s) 1 times daily. Dx: Type 2 DM - Controlled E11.9 Insulin: Yes - Lancets lancets Test blood sugar(s) 1 times daily. Dx: Type 2 DM - Controlled E11.9 Insulin: No - Oezpvlxq-Ee-Fvn-Fe- FA tab Take 1 tablet by mouth [...] 05/06/2009 01/23/2010 Routine general medical examination at [facility]*01/23/2010 12/06/2012 Class: Chronic Routine gynecological examination [Z01.419] 01/23/2010 02/22/2014 Class: Chronic Morbid Obesity [E66.01] 01/23/2010 Lumbar Disc Disorder [M51.9] 02/16/2010 Routine general medical examination at [facility]*12/06/2012 02/22/2014 Anxiety [F41.9] 06/07/2014 Type 2 [...] 09/04/2022 09/04/2022 (more content not included)... Normal [facility] Chiropractic Reporton 2024 Chiropractic Report Normal [facility] 04-01-2025 CNPN Telephone (NENMMN) ---- TORI GRAY ([id number]) 1980 F Date Time Provider Department 04/01/25 AMANDA ARTEAGA [facility] During your visit today, [...] tablet by mouth once daily. - Ipratropium [place] (ATROVENT) 21 mcg (0.03 %) nasal spray [...] Each by INTRAUTERINE route as directed. - [place]-3 Fatty Acids (FISH OIL) 500 mg cap Take 1 capsule by mouth once daily. - blood sugar diagnostic (BLOOD GLUCOSE TEST) test strip Test blood sugar(s) 1 times daily. Dx: Type 2 DM - Controlled E11.9 Insulin: Yes - Lancets lancets Test blood sugar(s) 1 times daily. Dx: Type 2 DM - Controlled E11.9 Insulin: No - Mjenfnhl-Na-Euy-Fe- FA tab Take 1 tablet by mouth [...] 05/06/2009 01/23/2010 Routine general medical examination at [facility]*01/23/2010 12/06/2012 Class: Chronic Routine gynecological examination [Z01.419] 01/23/2010 02/22/2014 Class: Chronic Morbid Obesity [E66.01] 01/23/2010 Lumbar Disc Disorder [M51.9] 02/16/2010 Routine general medical examination at [facility]*12/06/2012 02/22/2014 Anxiety [F41.9] 06/07/2014 Type 2 [...] mellitus [Z86.39] (more content not included)... Normal [facility] Chiropractic Reporton 2024 Chiropractic Report Normal [facility] Orthopedic Visit Reporton Orthopedic Visit Report Normal [facility] 03-19-2025 [facility] Tele[facility] (NEHIMN) ---- TORI GRAY ([id number]) 1980 F Date Time Provider Department 03/19/25 AMANDA ARTEAGA [facility] During your visit today, [...] tablet by mouth once daily. - Ipratropium [place] (ATROVENT) 21 mcg (0.03 %) nasal spray [...] Each by INTRAUTERINE route as directed. - [place]-3 Fatty Acids (FISH OIL) 500 mg cap Take 1 capsule by mouth once daily. - blood sugar diagnostic (BLOOD GLUCOSE TEST) test strip Test blood sugar(s) 1 times daily. Dx: Type 2 DM - Controlled E11.9 Insulin: Yes - Lancets lancets Test blood sugar(s) 1 times daily. Dx: Type 2 DM - Controlled E11.9 Insulin: No - Tspxrjhp-Em-Mcr-Fe- FA tab Take 1 tablet by mouth [...] general medical examination at [facility]*01/23/2010 12/06/2012 Class: Chronic Routine gynecological examination [Z01.419] 01/23/2010 02/22/2014 Class: Chronic Morbid Obesity [E66.01] 01/23/2010 Lumbar Disc Disorder [M51.9] 02/16/2010 Routine general medical examination at a [facility]*12/06/2012 02/22/2014 Anxiety [F41.9] 06/07/2014 Type 2 diabetes [...] 09/04/2022 11 (more content not included)... Normal [facility] Shoulder min 2 Viewson 03-11 Shoulder min 2 Views Normal [facility] Chiropractic Reporton 2024 [facility] C[facility]N Telephone ([facility]) ---- TORI GRAY ([id number]) 1980 F Date Time Provider Department 03/04/25 [...] tablet by mouth once daily. - Ipratropium [place] (ATROVENT) 21 mcg (0.03 %) nasal spray [...] Each by INTRAUTERINE route as directed. - [place]-3 Fatty Acids (FISH OIL) 500 mg cap Take 1 capsule by mouth once daily. - blood sugar diagnostic (BLOOD GLUCOSE TEST) test strip Test blood sugar(s) 1 times daily. Dx: Type 2 DM - Controlled E11.9 Insulin: Yes - Lancets lancets Test blood sugar(s) 1 times daily. Dx: Type 2 DM - Controlled E11.9 Insulin: No - Htiqerug-Xc-Hju-Fe- FA tab Take 1 tablet by mouth [...] general medical examination at a [facility]*12/06/2012 02/22/2014 Anxiety [F41.9] 06/07/2014 Type 2 diabetes [...] headache [G43. (more content not included)... Normal [facility] CNPNon 02-24-2025 CNPN Telephone ([facility]OM[facility]) ---- ISAACTORI Ivan ([id number]) 1980 F Date Time Provider Department 02/24/25 IVETTE PRICE JR During your visit today, we recorded [...] tablet by mouth once daily. - Ipratropium [place] (ATROVENT) 21 mcg (0.03 %) nasal spray [...] Each by INTRAUTERINE route as directed. - [place]-3 Fatty Acids (FISH OIL) 500 mg cap Take 1 capsule by mouth once daily. - blood sugar diagnostic (BLOOD GLUCOSE TEST) test strip Test blood sugar(s) 1 times daily. Dx: Type 2 DM - Controlled E11.9 Insulin: Yes - Lancets lancets Test blood sugar(s) 1 times daily. Dx: Type 2 DM - Controlled E11.9 Insulin: No - Jgtzrpyv-Bl-Pct-Fe- FA tab Take 1 tablet by mouth [...] 05/06/2009 01/23/2010 Routine general medical examination at [facility]*01/23/2010 12/06/2012 Class: Chronic Routine gynecological examination [Z01.419] 01/23/2010 02/22/2014 Class: Chronic Morbid Obesity [E66.01] 01/23/2010 Lumbar Disc Disorder [M51.9] 02/16/2010 Routine general medical examination at [facility]*12/06/2012 02/22/2014 Anxiety [F41.9] 06/07/2014 Type 2 [...] 09/04/2022 Low (more content not included)... Normal [facility] Inital Evaluation (1) - PTon 02-08-2025 Inital Evaluation (1) - PT Normal [facility] Chiropractic Reporton 2024 Chiropractic Report Normal [facility] Anion gap in Serum or Plasma Ordered By: Ivette Grimes on 01-28-2025 Anion gap [Moles/Vol] 11 mmol/L - [facility] BUN/creatinine ratioOrdered By: Ivette Grimes on 01-28-2025 Urea nitrogen/Creatinine [Mass ratio] 18.5 mg/mg - [facility] Basic Metabolic Profile (BMP )on 01-28-2025 BUN/CRE 18.5 RATIO Normal - [facility] Comment on above: Performed By: #### L 500.2500, L501.9985 ####[facility] [address] [place], [address] Calcium [Mass/Vol] 9.0 mg/dL Normal 7.6-11.0 [facility] Comment on above: Performed By: #### L 500.2500, L501.9985 ####[facility] [address] [place], [address] Chloride [Moles/Vol] 105 mmol/L Normal 98-108 [facility] Comment on above: Performed By: #### L 500.2500, L501.9985 ####[facility] [address] [place], [address] CO2 [Moles/Vol] 21.2 mmol/L Normal 21.0-32.0 [facility] Comment on above: Performed By: #### L 500.2500, L501.9985 ####[facility] [address] [place], [address] Creatinine [Mass/Vol] 0.77 mg/dL Normal 0.70-1.20 [facility] Comment on above: Performed By: #### L 500.2500, L501.9985 ####[facility] [address] [place], [address] GAP 11 Normal 5-15 [facility] Comment on above: Performed By: #### L 500.2500, L501.9985 ####[facility] [address] [place], [address] GFR/1.73 sq M.predicted among non-blacks MDRD (S/P/Bld) [Vol rate/Area] 98 mL/min/{1.73_m2} Normal >60 [facility] Comment on above: Result Comment: mL/m in/1.73m2 CKD-EPI Creatinine Equation (2020) Performed By: #### L 500.2500, L501.9985 ####[facility] [address] [place], [address] Glucose [Mass/Vol] 185 mg/dL High 70-99 [facility] Comment on above: Performed By: #### L 500.2500, L501.9985 ####[facility] [address] [place], [address] Potassium [Moles/Vol] 4.2 mmol/L Normal 3.3-5.1 [facility] Comment on above: Result Comment: Hemo lysis present, Results??could be affected.?? Performed By: #### L 500.2500, L501.9985 ####[facility] [address] [place], [address] Sodium [Moles/Vol] 137 mmol/L Normal 133-145 [facility] Comment on above: Performed By: #### L 500.2500, L501.9985 ####[facility] [address] [place], [address] Urea nitrogen [Mass/Vol] 14 mg/dL Normal 4-19 [facility] Comment on above: Performed By: #### L 500.2500, L501.9985 ####[facility] [address] [place], [address] Hany 01-28-2025 [facility] Telephone ([facility]) ---- TORI GRAY ([id number]) 1980 F Date Time Provider Department 01/28/25 IVETTE GRIMES [facility] During your visit today, we recorded the following information about you: Krystle Barnett RN 01/28/2025 4:54 PM Signed Prior Authorization Documentation Prior authorization requested for the following medication: Medication: Ozempic 1 mg (all though PA done in Aug 2024 and approved until Aug 2025 this needs PA due to dose change). Provider: EvaluAgent Name: Wego Phone number: [phone] Patient ID number: [id number] Pharmacy Name: [facility] Pharm[facility] Telephone number: [phone] Evon Philippe LPN 01/28/2025 4:56 PM Signed Electronic PA requested. Evon Philippe LPN 01/28/2025 4:58 PM Signed Unable to complete electronically. Will try on covermymeds Evon Philippe LPN 01/29/2025 9:07 AM Signed [employer] RESPONSE. [employer] does not handle this review. Please visit [email or web address] to start a prior authorization or fax information to [phone]. Please include all supporting chart notes. You may contact [employer] at [phone]. WILL FAX PA REQUEST TO NUMBER PROVIDED. [...] her know when it is ready for order picker. Allergies As of Date: 01/28/2025 Noted [...] tablet by mouth once daily. - Ipratropium [place] (ATROVENT) 21 mcg (0.03 %) nasal spray [...] Each by INTRAUTERINE route as directed. - [place]-3 Fatty Acids (FISH OIL) 500 mg cap Take 1 capsule by mouth once daily. - blood sugar diagnostic (BLOOD GLUCOSE TEST) test strip Test blood sugar(s) 1 times daily. Dx: Type 2 DM - Controlled E11.9 Insulin: Yes - Lancets lancets Test blood sugar(s) 1 times daily. Dx: Type 2 DM - Controlled E11.9 Insulin: No - Qvnqlajw-Zc-Vuc-Fe- FA tab Take 1 tablet by mouth [...] DERMATOFIBROMA///BE N (more content not included)... Normal [facility] ---- TORI GRAY ([id number]) 1980 F Date Time Provider Department 01/28/25 IVETTE GRIMES [facility] During your visit today, we recorded [...] tablet by mouth once daily. - Ipratropium [place] (ATROVENT) 21 mcg (0.03 %) nasal spray [...] Each by INTRAUTERINE route as directed. - [place]-3 Fatty Acids (FISH OIL) 500 mg cap Take 1 capsule by mouth once daily. - blood sugar diagnostic (BLOOD GLUCOSE TEST) test strip Test blood sugar(s) 1 times daily. Dx: Type 2 DM - Controlled E11.9 Insulin: Yes - Lancets lancets Test blood sugar(s) 1 times daily. Dx: Type 2 DM - Controlled E11.9 Insulin: No - Ezarxcyr-Zq-Mkg-Fe- FA tab Take 1 tablet by mouth [...] 05/06/2009 01/23/2010 Routine general medical examination at [facility]*01/23/2010 12/06/2012 Class: Chronic Routine gynecological examination [Z01.419] 01/23/2010 02/22/2014 Class: Chronic Morbid Obesity [E66.01] 01/23/2010 Lumbar Disc Disorder [M51.9] 02/16/2010 Routine general medical examination at [facility]*12/06/2012 02/22/2014 Anxiety [F41.9] 06/07/2014 Type 2 [...] R19.7] 11/22/202109/04 (more content not included)... Normal [facility] Carbon dioxide, total [Moles /volume] in Central venous bloodOrdered By: Ivette Grimes on 01-28-2025 CO2 [Moles/Vol] 21.2 mmol/L 21.0-32.0 [facility] Chloride assayOrdered By: Regina Grimes on 01-28-2025 Chloride [Moles/Vol] 105 mmol/L 98-108 [facility] GFR/1.73 sq M.predicted jamari g non-blacks MDRD (S/P/Bld) [Vol rate/Area]Ordered By: Ivette Grimes on 01-28-2025 Estimated GFR (MDRD) Non-Af Amer 98 >60 [facility] Comment on above: mL/min/1.73m2 CKD-EP I Creatinine Equation (2020) Glomerular filtration rate ( GFR) estimation/1.73 sq m using serum, plasma, or whole bOrdered By: Ivette Grimes on 01-28-2025 GFR/1.73 sq M.predicted among non-blacks MDRD (S/P/Bld) [Vol rate/Area] 98 mL/min/{1.73_m2} >60 [facility] Comment on above: mL/min/1.73m2 CKD-EP I Creatinine Equation (2020) HBA1C (OUTSIDE)on 01-28-2025 [facility] Hemoglobin A1c percentageon 01-28-2025 HbA1c (Bld) [Mass fraction] 6.6 % Normal <=5.6 [facility] Comment on above: Performed By: #### L 500.2500, L501.9985 ####[facility] [address] [place], [address] Potassium (Unsp spec) [Mass/ Vol]Ordered By: Ivette Grimes on 01-28-2025 Potassium [Moles/Vol] 4.2 mmol/L 3.3-5.1 [facility] Comment on above: Hemolysis present, R esults could be affected. Potassium measurement (mass/ volume)Ordered By: Ivette Grimes on 01-28-2025 Potassium (Unsp spec) [Mass/Vol] 4.2 mmol/L 3.3-5.1 [facility] Comment on above: Hemolysis present, R esults could be affected. Serum creatinine measurement (mass/volume)Ordered By: Ivette Grimes on 01-28-2025 Creatinine [Mass/Vol] 0.77 mg/dL 0.70-1.20 [facility] Serum glucose measurement (m ass/volume)Ordered By: Ivette Grimes on 01-28-2025 Glucose [Mass/Vol] 185 mg/dL High 70-99 [facility] Serum or plasma calcium sharron urement (mass/volume)Ordered By: Ivette Grimes on 01-28-2025 Calcium [Mass/Vol] 9.0 mg/dL 7.6-11.0 [facility] Serum or plasma urea nitroge n measurement (mass/volume)Ordered By: Ivette Grimes on 01-28-2025 Urea nitrogen [Mass/Vol] 14 mg/dL 4-19 [facility] Sodium levelOrdered By: Reji Grimes on 01-28-2025 Sodium [Moles/Vol] 137 mmol/L 133-145 [facility] CNOVon 01-22-2025 CNOV Office Visit (JAIMEWS) ---- TORI GRAY ([id number]) 1980 F Date Time Provider Department 01/22/25 3:40 PM IVETTE GRIMES During your visit [...] same. Arm goes numb. Has seen Dr Rasheed in the past for it in the [...] 1 tablet by mouth once daily. Ipratropium [place] (ATROVENT) 21 mcg (0.03 %) nasal spray [...] 1 Each by INTRAUTERINE route as directed. [place]-3 Fatty Acids (FISH OIL) 500 mg cap Take 1 capsule by mouth once daily. blood sugar diagnostic (BLOOD GLUCOSE TEST) test strip Test blood sugar(s) 1 times daily. Dx: Type 2 DM - Controlled E11.9 Insulin: Yes Lancets lancets Test blood sugar(s) 1 times daily. Dx: Type 2 DM - Controlled E11.9 Insulin: No Txfslybg-Da-Atw-Fe- FA tab Take 1 tablet by mouth [...] Age of Onset Alcohol/Drug Mother Heart Father SD Cancer Father PANCREATIC CANCER Diabetes Father Coronary [...] Controlled ( (more content not included)... Normal [facility] GABRIELAN[facility]20[facility] TORI G[facility] ([id number]) 1980 F Date Time Provider Department 12/21/24 JENNI JAIN [facility] During your visit today, we recorded the following information about you: Jenni Jain APRN.MAINTAINER OPERATOR 12/21/2024 2:36 PM Signed Can you please call the patient and let her know that I apologize for not getting back to her sooner. I had to go on and print off her test results from the hospital. Labs were relatively stable. Potassium was normal. Chest x-ray was normal as well. Can you please ask if her symptoms improved with the zpack? Jenni Jain APRN.Jumana Montes LPN 12/21/2024 3:20 PM Signed [...] tablet by mouth once daily. - Ipratropium [place] (ATROVENT) 21 mcg (0.03 %) nasal spray [...] Each by INTRAUTERINE route as directed. - [place]-3 Fatty Acids (FISH OIL) 500 mg cap Take 1 capsule by mouth once daily. - blood sugar diagnostic (BLOOD GLUCOSE TEST) test strip Test blood sugar(s) 1 times daily. Dx: Type 2 DM - Controlled E11.9 Insulin: Yes - Lancets lancets Test blood sugar(s) 1 times daily. Dx: Type 2 DM - Controlled E11.9 Insulin: No - Ounlkbyd-Vf-Jzq-Fe- FA tab Take 1 tablet by mouth [...] 05/06/2009 01/23/2010 Routine general medical examination at [facility]*01/23/2010 12/06/2012 Class: Chronic Routine gynecological examination [Z01.419] 01/23/2010 02/22/2014 Class: Chronic Morbid Obesity [E66.01] 01/23/2010 Lumbar Disc Disorder [M51.9] 02/16/2010 Routine general medical examination at [facility]*12/06/2012 02/22/2014 Anxiety [F41.9] 06/07/2014 Type 2 diabetes mellitus with microalbuminuria,*0 07/04/2018 Fatty liver [K76.0] 07/21/2018 08/05/2024 LETITIA (obstructive sleep apnea) [G47.33] 07/21/2018 Microalbuminuria [R80.9] 09/30/2018 09/04/2022 Obesity, Class III, BMI >= 40 [E66.01] 11/26/2019 09/04/2022 (more content not included)... Normal [facility] Albumin to globulin ratioOrd ered By: Jenni Jain on 12-11-2024 Albumin/Globulin [Mass ratio] 0.8 {ratio} Low 0.9-2.4 [facility] Bilirubin, totalOrdered By: Jenni Jain on 12-11-2024 Bilirubin [Mass/Vol] 0.80 mg/dL 0.20-1.00 [facility] Comment on above: For patients on eltr ombopag therapy, use of Dimension [place] TBIL is not recommended. Blood urea nitrogen (BUN)/cr eatinine ratioOrdered By: Jenni Jain on 12-11-2024 Urea nitrogen/Creatinine [Mass ratio] 11.5 mg/mg 10-20 [facility] CNOVon 12-11-2024 [facility] ---- TORI GRAY ([id number]) 1980 F Date Time Provider Department 12/11/24 11:00 AM [facility] visit today, we recorded the following information about you: Temperature Pulse Respiration Blood pressure 97.8 degrees 72/minute 16/minute 138/74 Weight 125.7 kg Jenni Jain APRN.MAINTAINER OPERATOR 12/11/2024 12:26 PM Signed This is a [...] 1 tablet by mouth once daily. Ipratropium [place] (ATROVENT) 21 mcg (0.03 %) nasal spray [...] 1 Each by INTRAUTERINE route as directed. [place]-3 Fatty Acids (FISH OIL) 500 mg cap Take 1 capsule by mouth once daily. blood sugar diagnostic (BLOOD GLUCOSE TEST) test strip Test blood sugar(s) 1 times daily. Dx: Type 2 DM - Controlled E11.9 Insulin: Yes Lancets lancets Test blood sugar(s) 1 times daily. Dx: Type 2 DM - Controlled E11.9 Insulin: No Jrmrxppl-Yv-Xzq-Fe- FA tab Take 1 tablet by mouth once daily. No current facility-administer ed medications for this visit. FAMILY HISTORY Problem Relation Age of Onset Alcohol/Drug Mother Heart Father [place] Cancer Father PANCREATIC CANCER Diabetes Father Coronary [...] NECK: Negat (more content not included)... Normal [facility] CNPNon 12-11-2024 CNPN Telephone (FAMPWS) ---- TORI GRAY ([id number]) 1980 F Date Time Provider Department 12/11/24 IVETTE GRIMES [facility] During your visit today, we recorded the following information about you: Brittney Meredith RN 12/11/2024 8:23 AM Signed Patient calling to make appt for evaluation of respiratory sx's that began approx 4 weeks ago. Pt states she feels she may have bronchitis or pneumonia. States she was at [facility] ER last month due to dizziness, [...] Nyquil-not very effective. Appt made with Aparna Jain CNP for evaluation of respiratory sx's. Brittney [...] tablet by mouth once daily. - Ipratropium [place] (ATROVENT) 21 mcg (0.03 %) nasal spray [...] Each by INTRAUTERINE route as directed. - [place]-3 Fatty Acids (FISH OIL) 500 mg cap Take 1 capsule by mouth once daily. - blood sugar diagnostic (BLOOD GLUCOSE TEST) test strip Test blood sugar(s) 1 times daily. Dx: Type 2 DM - Controlled E11.9 Insulin: Yes - Lancets lancets Test blood sugar(s) 1 times daily. Dx: Type 2 DM - Controlled E11.9 Insulin: No - Nofnrfbv-Gd-Ntj-Fe- FA tab Take 1 tablet by mouth [...] 05/06/2009 01/23/2010 Routine general medical examination at [facility]*01/23/2010 12/06/2012 Class: Chronic Routine gynecological examination [Z01.419] 01/23/2010 02/22/2014 Class: Chronic Morbid Obesity [E66.01] 01/23/2010 Lumbar Disc Disorder [M51.9] 02/16/2010 Routine general medical examination at [facility]*12/06/2012 02/22/2014 Anxiety [F41.9] 06/07/2014 Type 2 diabetes mellitus with microalbuminuria,*0 07/04/2018 Fatty liver [K76.0] 07/21/2018 08/05/20 (more content not included)... Normal [facility] Telephone (FAMPWS) ---- TORI GRAY ([id number]) 1980 F Date Time Provider Department 12/11/24 JENNI JAIN During your visit today, we recorded the following information about you: Jenni Jain APRN.GABRIELA 12/11/2024 2:18 PM Signed Can you please call the patient and let her know that I am still waiting for x-ray results from [facility]. I went ahead and sent in [...] tablet daily until gone. Authorizing Provider: JENNI JAIN APRN.CNP Ferriman, Barbara, LPN 12/11/2024 2:24 PM [...] tablet by mouth once daily. - Ipratropium [place] (ATROVENT) 21 mcg (0.03 %) nasal spray [...] Each by INTRAUTERINE route as directed. - [place]-3 Fatty Acids (FISH OIL) 500 mg cap Take 1 capsule by mouth once daily. - blood sugar diagnostic (BLOOD GLUCOSE TEST) test strip Test blood sugar(s) 1 times daily. Dx: Type 2 DM - Controlled E11.9 Insulin: Yes - Lancets lancets Test blood sugar(s) 1 times daily. Dx: Type 2 DM - Controlled E11.9 Insulin: No - Rolgpaed-Hm-Hmp-Fe- FA tab Take 1 tablet by mouth [...] SACROILIITIS [ (more content not included)... Normal [facility] Carbon dioxide measurementOr dered By: Jenni Jain on 12-11-2024 CO2 [Moles/Vol] 23.0 mmol/L 21.0-32.0 [facility] Chest PA and Lateralon 12-11 Chest PA and Lateral Normal [facility] Chloride measurementOrdered By: Jenni Jain on 12-11-2024 Chloride [Moles/Vol] 107 mmol/L 98-107 [facility] Comprehensive Metabolic Prof ilon 12-11-2024 Albumin [Mass/Vol] 3.7 g/dL Normal 3.2-5.0 [facility] Comment on above: Performed By: #### L 500.4050 ####[facility] [address] [place], [address] Albumin/Globulin [Mass ratio] 0.8 {ratio} Low 0.9-2.4 [facility] Comment on above: Performed By: #### L 500.4050 ####[facility] [address] [place], [address] ALK P 84 U/L Normal 45-117 [facility] Comment on above: Performed By: #### L 500.4050 ####[facility] [address] [place], [address] ALT [Catalytic activity/Vol] 53 U/L Normal 13-56 [facility] Comment on above: Performed By: #### L 500.4050 ####[facility] [address] [place], [address] AST [Catalytic activity/Vol] 40 U/L High 15-37 [facility] Comment on above: Performed By: #### L 500.4050 ####[facility] [address] [place], [address] Bilirubin [Mass/Vol] 0.80 mg/dL Normal 0.20-1.00 [facility] Comment on above: Result Comment: For patients on eltrombopag therapy, use of Dimension [place] TBIL is not recommended. Performed By: #### L 500.4050 ####[facility] [address] [place], [address] BUN/CRE 11.5 RATIO Normal 10-20 [facility] Comment on above: Performed By: #### L 500.4050 ####[facility] [address] [place], [address] CA,Total 8.8 mg/dL Normal 8.5-10.1 [facility] Comment on above: Performed By: #### L 500.4050 ####[facility] [address] [place], [address] Chloride [Moles/Vol] 107 mmol/L Normal 98-107 [facility] Comment on above: Performed By: #### L 500.4050 ####[facility] [address] [place], [address] CO2 [Moles/Vol] 23.0 mmol/L Normal 21.0-32.0 [facility] Comment on above: Performed By: #### L 500.4050 ####[facility] [address] [place], [address] Creatinine [Mass/Vol] 0.78 mg/dL Normal 0.55-1.02 [facility] Comment on above: Result Comment: The validity of the calculated GFR GFRAA in patients over70 years has not been determined. Clinical correlation isessential. Performed By: #### L 500.4050 ####[facility] [address] [place], [address] EST GFR - AA 104 mL/min Normal >60 [facility] Comment on above: Result Comment: Afri can [place] Islander GFR Calc Performed By: #### L 500.4050 ####[facility] [address] [place], [address] GAP 7 Normal 5-15 [facility] Comment on above: Performed By: #### L 500.4050 ####[facility] [address] [place], [address] GFR/1.73 sq M.predicted among non-blacks MDRD (S/P/Bld) [Vol rate/Area] 86 mL/min/{1.73_m2} Normal >60 [facility] Comment on above: Result Comment: Non- GFR Calc Performed By: #### L 500.4050 ####[facility] [address] [place], [address] Globulin (S) [Mass/Vol] 4.5 g/dL High 2.2-4.2 [facility] Comment on above: Performed By: #### L 500.4050 ####[facility] [address] [place], [address] Glucose [Mass/Vol] 109 mg/dL High 74-106 [facility] Comment on above: Result Comment: Fast ing Glucose result from 100 to 125 mg/dLsuggests IMPAIRED HOMEOSTASIS per A.D.A. criteria. Performed By: #### L 500.4050 ####[facility] [address] [place], [address] Potassium [Moles/Vol] 3.9 mmol/L Normal 3.5-5.1 [facility] Comment on above: Performed By: #### L 500.4050 ####[facility] [address] [place], [address] Sodium [Moles/Vol] 137 mmol/L Normal 136-145 [facility] Comment on above: Performed By: #### L 500.4050 ####[facility] [address] [place], [address] T PROT 8.2 g/dL Normal 6.4-8.2 [facility] Comment on above: Performed By: #### L 500.4050 ####[facility] [address] [place], [address] Urea nitrogen [Mass/Vol] 9 mg/dL Normal 7-18 [facility] Comment on above: Performed By: #### L 500.4050 ####[facility] [address] [place], [address] Estimated glomerular filtrat ion rate (GFR) AmericanOrdered By: Jenni Jain on 12-11-2024 Estimated GFR (MDRD) Amer 104 mL/min >60 [facility] Comment on above: GFR Calc Glomerular filtration rate ( GFR) estimationOrdered By: Jenni Jain on 12-11-2024 Estimated GFR (MDRD) Non-Af Amer 86 mL/min >60 [facility] Comment on above: Non- GFR Calc GFR/1.73 sq M.predicted among non-blacks MDRD (S/P/Bld) [Vol rate/Area] 86 mL/min/{1.73_m2} >60 [facility] Comment on above: Non- GFR Calc Glucose measurementOrdered B y: Jenni Jain on 12-11-2024 Glucose [Mass/Vol] 109 mg/dL High 74-106 [facility] Comment on above: Fasting Glucose resu lt from 100 to 125 mg/dL suggests IMPAIRED HOMEOSTASIS per A.D.A. criteria. Laboratory - Chemistry and C hemistry - challengeOrdered By: Jenni Jain on 12-11-2024 AST [Catalytic activity/Vol] 40 U/L High 15-37 [facility] Potassium measurementOrdered By: Jenni Jain on 12-11-2024 Potassium [Moles/Vol] 3.9 mmol/L 3.5-5.1 [facility] Serum anion gap measurementO rdered By: Jenni Jain on 12-11-2024 Anion gap [Moles/Vol] 7 mmol/L 5-15 [facility] Serum globulin measurementOr dered By: Jenni Jain on 12-11-2024 Globulin (S) [Mass/Vol] 4.5 g/dL High 2.2-4.2 [facility] Serum or plasma alanine arizmendi otransferase (ALT) measurementOrdered By: Jenni Jain on 12-11-2024 ALT [Catalytic activity/Vol] 53 U/L 13-56 [facility] Serum or plasma albumin sharron urement (mass/volume)Ordered By: Jenni Jain on 12-11-2024 Albumin [Mass/Vol] 3.7 g/dL 3.2-5.0 [facility] Serum or plasma alkaline toyin sphatase measurementOrdered By: Jenni Jain on 12-11-2024 ALP [Catalytic activity/Vol] 84 U/L 45-117 [facility] Serum or plasma calcium sharron urement (mass/volume)Ordered By: Jenni Jain on 12-11-2024 Calcium [Mass/Vol] 8.8 mg/dL 8.5-10.1 [facility] Serum or plasma creatinine m easurement (mass/volume)Ordered By: Jenni Jain on 12-11-2024 Creatinine [Mass/Vol] 0.78 mg/dL 0.55-1.02 [facility] Comment on above: The validity of the calculated GFR & GFRAA in patients over 70 years has not been determined. Clinical correlation is essential. Serum or plasma urea nitroge n measurement (mass/volume)Ordered By: Jenni Jain on 12-11-2024 Urea nitrogen [Mass/Vol] 9 mg/dL 7-18 [facility] Sodium levelOrdered By: Ricco Jain on 12-11-2024 Sodium [Moles/Vol] 137 mmol/L 136-145 [facility] Total proteinOrdered By: John Jain on 12-11-2024 Protein [Mass/Vol] 8.2 g/dL 6.4-8.2 [facility] Urine Cultureon 11-12-2024 [facility] Mixed Gram Pos Gram Neg Org [place] Count 11,000-25,000 [facility]IX[facility] Mixed contaminants. Submit a new specimen if indicated. Normal [facility] Comment on above: Performed By: #### M 100.1985 ####[facility] [address] [place], [address] 12 Lead EKGon 11-11-2024 12 Lead EKG Normal [facility] Absolute neutrophil countOrd ered By: Buddy Hall on 11-11-2024 Neutrophils (Bld) [#/Vol] 6.5 10*3/uL 2.0-7.7 [facility] Albumin to globulin ratioOrd ered By: Buddy Hall on 11-11-2024 Albumin/Globulin [Mass ratio] 0.6 {ratio} Low 0.9-2.4 [facility] Bacteria LM.HPF (Urine sed) [#/Area]Ordered By: Buddy Hall on 11-11-2024 Urine Bacteria RARE /hpf None Seen [facility] Basophil percentageOrdered B y: Buddy Hall on 11-11-2024 Basophils/100 WBC (Bld) 0.4 % 0-1 [facility] Bilirubin Test strip Ql (U)O rdered By: Buddy Hall on 11-11-2024 Bilirubin Ql (U) Negative Negative [facility] Bilirubin, totalOrdered By: Buddy Hall on 11-11-2024 Bilirubin [Mass/Vol] 0.90 mg/dL 0.20-1.00 [facility] Comment on above: For patients on eltr ombopag therapy, use of Dimension [place] TBIL is not recommended. Blood urea nitrogen (BUN)/cr eatinine ratioOrdered By: Buddy Hall on 11-11-2024 Urea nitrogen/Creatinine [Mass ratio] 9.8 mg/mg Low 10-20 [facility] CBC W/Diff, Automatedon Absolute Lymph 0.72 X10 3/uL Low 0.83-4.51 [facility] Comment on above: Performed By: #### L 100.0100, L500.4050 ####[facility] [address] [place], [address] Absolute Neut 6.5 X10 3/uL Normal 2.0-7.7 [facility] Comment on above: Performed By: #### L 100.0100, L500.4050 ####[facility] [address] [place], [address] Basophils/100 WBC (Bld) 0.4 % Normal 0-1 [facility] Comment on above: Performed By: #### L 100.0100, L500.4050 ####[facility] [address] [place], [address] Eosinophils/100 WBC (Bld) 1.2 % Normal 0-5 [facility] Comment on above: Performed By: #### L 100.0100, L500.4050 ####[facility] [address] [place], [address] Erythrocyte distribution width (RBC) [Ratio] 13.7 % Normal 11.6-14.6 [facility] Comment on above: Performed By: #### L 100.0100, L500.4050 ####[facility] [address] [place], [address] Hematocrit (Bld) [Volume fraction] 33.1 % Low 37-47 [facility] Comment on above: Performed By: #### L 100.0100, L500.4050 ####[facility] [address] [place], [address] Hemoglobin (Bld) [Mass/Vol] 11.4 g/dL Low 12.0-15.0 [facility] Comment on above: Performed By: #### L 100.0100, L500.4050 ####[facility] [address] [place], [address] IG% 1.200 High 0.0-0.9 [facility] Comment on above: Result Comment: IG% - Immature Granulocytes (promyelocytes, myelocytes andmetamyelocytes) > 1% indicates that a LEFT SHIFT is Present. Performed By: #### L 100.0100, L500.4050 ####[facility] [address] [place], [address] Lymphocytes/100 WBC (Bld) 9.2 % Low 19-41 [facility] Comment on above: Performed By: #### L 100.0100, L500.4050 ####[facility] [address] [place], [address] MCH (RBC) [Entitic mass] 31.8 pg Normal 27.0-32.0 [facility] Comment on above: Performed By: #### L 100.0100, L500.4050 ####[facility] [address] [place], [address] MCHC (RBC) [Mass/Vol] 34.4 g/dL Normal 32-36 [facility] Comment on above: Performed By: #### L 100.0100, L500.4050 ####[facility] [address] [place], [address] MCV (RBC) [Entitic vol] 92.5 fL Normal 81-99 [facility] Comment on above: Performed By: #### L 100.0100, L500.4050 ####[facility] [address] [place], [address] Monocytes/100 WBC (Bld) 4.2 % Normal 0-10 [facility] Comment on above: Performed By: #### L 100.0100, L500.4050 ####[facility] [address] [place], [address] Neutrophils/100 WBC (Bld) 83.8 % High 47-70 [facility] Comment on above: Performed By: #### L 100.0100, L500.4050 ####[facility] [address] [place], [address] Nucleated RBC (Bld) [#/Vol] 0 10*3/uL Normal 0-5 [facility] Comment on above: Performed By: #### L 100.0100, L500.4050 ####[facility] [address] [place], [address] Platelet mean volume (Bld) [Entitic vol] 9.6 fL Normal 6.2-12.0 [facility] Comment on above: Performed By: #### L 100.0100, L500.4050 ####[facility] [address] [place], [address] Platelets (Bld) [#/Vol] 108 10*3/uL Low 150-450 [facility] Comment on above: Performed By: #### L 100.0100, L500.4050 ####[facility] [address] [place], [address] RBC (Bld) [#/Vol] 3.58 10*6/uL Low 4.2-5.4 [facility] Comment on above: Performed By: #### L 100.0100, L500.4050 ####[facility] [address] [place], [address] RDW SD 46.7 fl High 35.1-43.9 [facility] Comment on above: Performed By: #### L 100.0100, L500.4050 ####[facility] [address] [place], [address] WBC (Bld) [#/Vol] 7.8 10*3/uL Normal 4.4-11.0 [facility] Comment on above: Performed By: #### L 100.0100, L500.4050 ####[facility] [address] [place], [address] Carbon dioxide measurementOr dered By: Buddy Hall on 11-11-2024 CO2 [Moles/Vol] 28.0 mmol/L 21.0-32.0 [facility] Chloride measurementOrdered By: Buddy Hall on 11-11-2024 Chloride [Moles/Vol] 102 mmol/L 98-107 [facility] Comprehensive Metabolic Prof ilon 11-11-2024 Albumin [Mass/Vol] 2.6 g/dL Low 3.2-5.0 [facility] Comment on above: Performed By: #### L 100.0100, L500.4050 ####[facility] [address] [place], [address] Albumin/Globulin [Mass ratio] 0.6 {ratio} Low 0.9-2.4 [facility] Comment on above: Performed By: #### L 100.0100, L500.4050 ####[facility] [address] [place], [address] ALK P 79 U/L Normal 45-117 [facility] Comment on above: Performed By: #### L 100.0100, L500.4050 ####[facility] [address] [place], [address] ALT [Catalytic activity/Vol] 29 U/L Normal 13-56 [facility] Comment on above: Performed By: #### L 100.0100, L500.4050 ####[facility] [address] [place], [address] AST [Catalytic activity/Vol] 16 U/L Normal 15-37 [facility] Comment on above: Performed By: #### L 100.0100, L500.4050 ####[facility] [address] [place], [address] Bilirubin [Mass/Vol] 0.90 mg/dL Normal 0.20-1.00 [facility] Comment on above: Result Comment: For patients on eltrombopag therapy, use of [employer]ension [place] TBIL is not recommended. Performed By: #### L 100.0100, L500.4050 ####[facility] [address] [place], [address] BUN/CRE 9.8 RATIO Low 10-20 [facility] Comment on above: Performed By: #### L 100.0100, L500.4050 ####[facility] [address] [place], [address] CA,Total 8.2 mg/dL Low 8.5-10.1 [facility] Comment on above: Performed By: #### L 100.0100, L500.4050 ####[facility] [address] [place], [address] Chloride [Moles/Vol] 102 mmol/L Normal 98-107 [facility] Comment on above: Performed By: #### L 100.0100, L500.4050 ####[facility] [address] [place], [address] CO2 [Moles/Vol] 28.0 mmol/L Normal 21.0-32.0 [facility] Comment on above: Performed By: #### L 100.0100, L500.4050 ####[facility] [address] [place], [address] Creatinine [Mass/Vol] 1.12 mg/dL High 0.55-1.02 [facility] Comment on above: Result Comment: The validity of the calculated GFR GFRAA in patients over70 years has not been determined. Clinical correlation isessential. Performed By: #### L 100.0100, L500.4050 ####[facility] [address] [place], [address] ECRCL 92.31 ml/min Normal [facility] Comment on above: Performed By: #### L 100.0100, L500.4050 ####[facility] [address] [place], [address] EST GFR - AA 69 mL/min Normal >60 [facility] Comment on above: Result Comment: Afri can [place] GFR Calc Performed By: #### L 100.0100, L500.4050 ####[facility] [address] [place], [address] GAP 6 Normal 5-15 [facility] Comment on above: Performed By: #### L 100.0100, L500.4050 ####[facility] [address] [place], [address] GFR/1.73 sq M.predicted among non-blacks MDRD (S/P/Bld) [Vol rate/Area] 57 mL/min/{1.73_m2} Low >60 [facility] Comment on above: Result Comment: Non- GFR Calc Performed By: #### L 100.0100, L500.4050 ####[facility] [address] [place], [address] Globulin (S) [Mass/Vol] 4.0 g/dL Normal 2.2-4.2 [facility] Comment on above: Performed By: #### L 100.0100, L500.4050 ####[facility] [address] [place], [address] Glucose [Mass/Vol] 233 mg/dL High 74-106 [facility] Comment on above: Result Comment: Gluc ose result greater than or equal to 200 mg/dLsuggests DIABETES MELLITUS per A.D.A. criteria. Performed By: #### L 100.0100, L500.4050 ####[facility] [address] [place], [address] Potassium [Moles/Vol] 2.6 mmol/L Invalid Interpretation Code 3.5-5.1 [facility] Comment on above: Result Comment: Crit ical Result(s) Called at: 07:34:02 11/11/2024 by: AARTI Dumas. Results read back by same. Performed By: #### L 100.0100, L500.4050 ####[facility] [address] [place], [address] Sodium [Moles/Vol] 135 mmol/L Low 136-145 [facility] Comment on above: Performed By: #### L 100.0100, L500.4050 ####[facility] [address] [place], [address] T PROT 6.6 g/dL Normal 6.4-8.2 [facility] Comment on above: Performed By: #### L 100.0100, L500.4050 ####[facility] [address] [place], [place], [id number] Urea nitrogen [Mass/Vol] 11 mg/dL Normal 7-18 [facility] Comment on above: Performed By: #### L 100.0100, L500.4050 ####[facility] [address] [place], [place], [id number] Emergency Department Summary on 11-11-2024 Emergency Department Summary Normal [facility] Eosinophil percentageOrdered By: Buddy Hall on 11-11-2024 Eosinophils/100 WBC (Bld) 1.2 % 0-5 [facility] Epithelial cells.squamous LM Ql (Urine sed)Ordered By: Buddy Hall on 11-11-2024 Epithelial cells.squamous LM.HPF (Urine sed) [#/Area] 0 /[HPF] 5-10 [facility] Erythrocyte distribution wid th ratioOrdered By: Buddy Hall on 11-11-2024 Erythrocyte distribution width (RBC) [Ratio] 13.7 % 11.6-14.6 [facility] Erythrocyte distribution wid th standard deviationOrdered By: Buddy Hall on 11-11-2024 Erythrocyte distribution width (RBC) [Entitic vol] 46.7 fL High 35.1-43.9 [facility] Estimated glomerular filtrat ion rate (GFR) AmericanOrdered By: Buddy Hall on 11-11-2024 Estimated GFR (MDRD) Amer 69 mL/min >60 [facility] Comment on above: GFR Calc Estimation of creatinine deniz aranceOrdered By: Buddy Hall on 11-11-2024 Estimated Creatinine Clearance Calc 92.31 ml/min [facility] Glomerular filtration rate ( GFR) estimationOrdered By: Buddy Hall on 11-11-2024 Estimated GFR (MDRD) Non-Af Amer 57 mL/min Low >60 [facility] Comment on above: Non- GFR Calc Glucose Ql (U)Ordered By: Smith Hall on 11-11-2024 Urine Glucose (UA) Normal mg/dl Normal [facility] Glucose measurementOrdered B y: Buddy Hall on 11-11-2024 Glucose [Mass/Vol] 233 mg/dL High 74-106 [facility] Comment on above: Glucose result great er than or equal to 200 mg/dLsuggests DIABETES MELLITUS per A.D.A. criteria. Hematocrit Auto (Bld) [Volum e fraction]Ordered By: Buddy Hall on 11-11-2024 Hematocrit (Bld) [Volume fraction] 33.1 % Low 37-47 [facility] Hemoglobin measurementOrdere d By: Buddy Hall on 11-11-2024 Hemoglobin (Bld) [Mass/Vol] 11.4 g/dL Low 12.0-15.0 [facility] Immature granulocytes/100 WB C Auto (Bld)Ordered By: Buddy Hall on 11-11-2024 Immature granulocytes/100 WBC (Bld) 1.200 % High 0.0-0.9 [facility] Comment on above: IG% - Immature Granu locytes (promyelocytes, myelocytes and metamyelocytes) > 1% indicates that a LEFT SHIFT is Present. Influenza virus A and B and SARS-CoV-2 (COVID-19) and Respiratory syncytial virus RNAOrdered By: Buddy Hall on 11-11-2024 SARS-CoV-2 (COVID-19) RNA ALLYSON+probe Ql (Unsp spec) [facility] Ketones Test strip Ql (U)Ord ered By: Buddy Hall on 11-11-2024 Ketones Ql (U) 5 mg/dl High Negative [facility] Laboratory - Chemistry and C hemistry - challengeOrdered By: Buddy Hall on 11-11-2024 AST [Catalytic activity/Vol] 16 U/L 15-37 [facility] Lymphocytes Auto (Unsp spec) [#/Vol]Ordered By: Buddy Hall on 11-11-2024 Lymphocytes (Bld) [#/Vol] 0.72 10*3/uL Low 0.83-4.51 [facility] Lymphocytes/100 WBC Auto (Un sp spec)Ordered By: Buddy Hall on 11-11-2024 Lymphocytes/100 WBC (Bld) 9.2 % Low 19-41 [facility] M100.678on 11-11-2024 M100.678 Pending SARS-CoV-2 (COVID 19) Negative INFLUENZA A Negative INFLUENZA B Negative RSV PCR Negative Normal [facility] Comment on above: Performed By: #### M 100.678, L400.0001 ####[facility] [address] [facility] [place], [place], [id number] MCV (mean corpuscular volume ) determinationOrdered By: Buddy Hlal on 11-11-2024 MCV (RBC) [Entitic vol] 92.5 fL 81-99 [facility] Magnesiumon 11-11-2024 Magnesium [Mass/Vol] 1.7 mg/dL Normal 1.6-2.6 [facility] Comment on above: Performed By: #### L 501.5200 ####[facility] [address] [place], [place], [id number] Magnesium measurementOrdered By: Buddy Hall on 11-11-2024 Magnesium [Mass/Vol] 1.7 mg/dL 1.6-2.6 [facility] Mean corpuscular hemoglobin (MCH) determinationOrdered By: Buddy Hall on 11-11-2024 MCH (RBC) [Entitic mass] 31.8 pg 27.0-32.0 [facility] Mean corpuscular hemoglobin concentration (MCHC) determinationOrdered By: Buddy Hall on 11-11-2024 MCHC (RBC) [Mass/Vol] 34.4 g/dL 32-36 [facility] Mean platelet volume determi nationOrdered By: Buddy Hall on 11-11-2024 Platelet mean volume (Bld) [Entitic vol] 9.6 fL 6.2-12.0 [facility] Microscopic analysis of urin e for red blood cells (RBC)Ordered By: Buddy Hall on 11-11-2024 Urine RBC 0-5 SEEN /hpf 0-5 [facility] Monocyte percentageOrdered B y: Buddy Hall on 11-11-2024 Monocytes/100 WBC (Bld) 4.2 % 0-10 [facility] Mucus LM Ql (Urine sed)Order ed By: Buddy Hall on 11-11-2024 Mucus Ql (Urine sed) 0 SEEN /hpf [facility] Neutrophil percentageOrdered By: Buddy Hall on 11-11-2024 Neutrophils/100 WBC (Bld) 83.8 % High 47-70 [facility] Nitrite Test strip Ql (U)Ord ered By: Buddy Hall on 11-11-2024 Nitrite Ql (U) Negative Negative [facility] Nucleated red blood cell per centageOrdered By: Buddy Hall on 11-11-2024 Nucleated RBC/100 WBC (Bld) [Ratio] 0 % 0-5 [facility] Platelet countOrdered By: Smith Hall on 11-11-2024 Platelets (Bld) [#/Vol] 108 10*3/uL Low 150-450 [facility] Potassium measurementOrdered By: Buddy Hall on 11-11-2024 Potassium [Moles/Vol] 2.6 mmol/L Low 3.5-5.1 [facility] Comment on above: Critical Result(s) C alled at: 07:34:02 11/11/2024 by: ESTEFANIA MENDOZA to Ronald Dumas. Results read back by same. Protein Test strip Ql (U)Ord ered By: Buddy Hall on 11-11-2024 Protein Ql (U) 100 mg/dl High Negative [facility] RBC Auto (Bld) [#/Vol]Ordere d By: Buddy Hall on 11-11-2024 RBC (Bld) [#/Vol] 3.58 10*6/uL Low 4.2-5.4 [facility] Serum anion gap measurementO rdered By: Buddy Hall on 11-11-2024 Anion gap [Moles/Vol] 6 mmol/L 5-15 [facility] Serum globulin measurementOr dered By: Buddy Hall on 11-11-2024 Globulin (S) [Mass/Vol] 4.0 g/dL 2.2-4.2 [facility] Serum or plasma alanine arizmendi otransferase (ALT) measurementOrdered By: Buddy Hall on 11-11-2024 ALT [Catalytic activity/Vol] 29 U/L 13-56 [facility] Serum or plasma albumin sharron urement (mass/volume)Ordered By: Buddy Hall on 11-11-2024 Albumin [Mass/Vol] 2.6 g/dL Low 3.2-5.0 [facility] Serum or plasma alkaline toyin sphatase measurementOrdered By: Buddy Hall on 11-11-2024 ALP [Catalytic activity/Vol] 79 U/L 45-117 [facility] Serum or plasma calcium sharron urement (mass/volume)Ordered By: Buddy Hall on 11-11-2024 Calcium [Mass/Vol] 8.2 mg/dL Low 8.5-10.1 [facility] Serum or plasma creatinine m easurement (mass/volume)Ordered By: Buddy Hall on 11-11-2024 Creatinine [Mass/Vol] 1.12 mg/dL High 0.55-1.02 [facility] Comment on above: The validity of the calculated GFR & GFRAA in patients over 70 years has not been determined. Clinical correlation is essential. Serum or plasma urea nitroge n measurement (mass/volume)Ordered By: Buddy Hall on 11-11-2024 Urea nitrogen [Mass/Vol] 11 mg/dL 7-18 [facility] Sodium levelOrdered By: Ashia Hall on 11-11-2024 Sodium [Moles/Vol] 135 mmol/L Low 136-145 [facility] Total proteinOrdered By: Sim Hall on 11-11-2024 Protein [Mass/Vol] 6.6 g/dL 6.4-8.2 [facility] Urinalysis, Completeon 11-11 BACTERIA RARE Normal None Seen [facility] Comment on above: Order Comment: CLEAN CATCH Performed By: #### M 100.678, L400.0001 ####[facility] [address] [place], [address] EPI,SQUAMOUS 0-5 SEEN Normal 5-10 [facility] Comment on above: Order Comment: CLEAN CATCH Performed By: #### M 100.678, L400.0001 ####[facility] [address] [place], [address] RBC 0-5 SEEN Normal 0-5 [facility] Comment on above: Order Comment: CLEAN CATCH Performed By: #### M 100.678, L400.0001 ####[facility] [address] [place], [address] WBC 10-25 SEEN Normal 0-5 [facility] Comment on above: Order Comment: CLEAN CATCH Performed By: #### M 100.678, L400.0001 ####[facility] [address] [place], [address] Mucus Ql (Urine sed) 0 SEEN Normal [facility] Comment on above: Order Comment: CLEAN CATCH Performed By: #### M 100.678, L400.0001 ####[facility] [address] [place], [address] Urine blood detectionOrdered By: Buddy Hall on 11-11-2024 Urine Occult Blood 150 /ul High Negative [facility] Urine clarityOrdered By: Sim Hall on 11-11-2024 Clarity (U) Sl. Cloudy Clear [facility] Urine color determinationOrd ered By: Buddy Hall on 11-11-2024 Color (U) Yellow Yellow [facility] Urine cultureOrdered By: Sim Hall on 11-11-2024 Bacteria identified Cx Nom (U) Mixed Gram Pos & Gram Neg Org Abnormal [facility] Urine leukocyte esterase det ection by dipstickOrdered By: Buddy Hall on 11-11-2024 Leukocyte esterase Test strip Ql (U) 500 /ul High Negative [facility] Urine pHOrdered By: Buddy samuel on 11-11-2024 pH (U) 6.5 [pH] 5.0 - 8.0 [facility] Urine specific gravity measu rementOrdered By: Buddy Hall on 11-11-2024 Specific gravity (U) [Rel density] 1.010 1.002-1.030 [facility] Urobilinogen Ql (U)Ordered B y: Buddy Hall on 11-11-2024 Urine Urobilinogen Normal mg/dl Normal [facility] White blood cell (WBC) count Ordered By: Buddy Hall on 11-11-2024 WBC (Bld) [#/Vol] 7.8 10*3/uL 4.4-11.0 [facility] White blood cell countOrdere d By: Buddy Hall on 11-11-2024 Urine WBC 10-25 SEEN /hpf 0-5 [facility] Chiropractic Reporton 2023 Chiropractic Report Normal [facility] Brain/Head without Contrasto n 10-16-2024 Brain/Head without Contrast Normal [facility] Emergency Department Summary on 10-16-2024 Emergency Department Summary Normal [facility] HIP, UNI W/ Pelvis 2-3 Views on 10-16-2024 HIP, UNI W/ Pelvis 2-3 Views Normal [facility] Lumbar Spine 2 or 3 Viewson 10-16-2024 Lumbar Spine 2 or 3 Views Normal [facility] Spine Cervical without Contr ason 10-16-2024 Spine Cervical without Contras Normal [facility] HBA1C (OUTSIDE)on 07-08-2024 HbA1c (Bld) [Mass fraction] 6.7 % [facility] LIPID PANEL (OUTSIDE)on Cholesterol [Mass/Vol] 195 mg/dL [facility] Cholesterol in HDL [Mass/Vol] 35 mg/dL [facility] Cholesterol in LDL [Mass/Vol] 105 mg/dL [facility] LDL:HDL Ratio [facility] Non-HDL Cholesterol [facility] TC:HDL Ratio [facility] Triglyceride [Mass/Vol] 274 mg/dL [facility] VLDL Cholesterol 55 [facility] No Panel Informationon 07-08 [facility] MICROALBUMIN/CREATININE UR W RATIO (EXTERNAL)Ordered By: Lubna Yoon on 07-04-2024 Albumin/Creat Ratio 93 [facility] Creatinine Urine 164 [facility] Microalbumin, Random urine 153 [facility] Absolute lymphocyte countOrd ered By: Sam Pearl on 02-04-2024 Lymphocytes Auto (Unsp spec) [#/Vol] 2.24 10*3/uL 0.83-4.51 [facility] Automated lymphocyte count a s percentage of total leukocytesOrdered By: Sam Pearl on 02-04-2024 Lymphocytes/100 WBC Auto (Unsp spec) 19.8 % 19-41 [facility] Basophil percentageOrdered B y: Sam Pearl on 02-04-2024 Basophils/100 WBC (Bld) 0.4 % 0-1 [facility] Chloride [Moles/Vol] 106 mmol/L 98-107 [facility] Eosinophils/100 WBC (Bld) 0.9 % 0-5 [facility] Glucose [Mass/Vol] 246 mg/dL 74-106 [facility] Comment on above: Glucose result great er than or equal to 200 mg/dLsuggests DIABETES MELLITUS per A.D.A. criteria. Hemoglobin (Bld) [Mass/Vol] 11.2 g/dL 12.0-15.0 [facility] Monocytes/100 WBC (Bld) 6.6 % 0-10 [facility] Neutrophils (Bld) [#/Vol] 8.0 10*3/uL 2.0-7.7 [facility] Neutrophils/100 WBC (Bld) 71.0 % 47-70 [facility] Potassium [Moles/Vol] 3.6 mmol/L 3.5-5.1 [facility] Sodium [Moles/Vol] 135 mmol/L 136-145 [facility] WBC (Bld) [#/Vol] 11.3 10*3/uL 4.4-11.0 [facility] Basophil percentage 10-25 SEEN /hpf 0-5 [facility] Bilirubin Test strip Ql (U)O rdered By: Sam Pearl on 02-04-2024 Bilirubin Ql (U) Negative Negative [facility] Determination of erythrocyte mean corpuscular volume (MCV)Ordered By: Sam Pearl on 02-04-2024 MCV (RBC) [Entitic vol] 89.5 fL 81-99 [facility] Erythrocyte distribution wid th ratioOrdered By: Sam Pearl on 02-04-2024 Erythrocyte distribution width (RBC) [Ratio] 13.2 % 11.6-14.6 [facility] Erythrocyte distribution wid th standard deviationOrdered By: Sam Pearl on 02-04-2024 Erythrocyte distribution width (RBC) [Entitic vol] 43.2 fL 35.1-43.9 [facility] Hematocrit Auto (Bld) [Volum e fraction]Ordered By: Sam Pearl on 02-04-2024 Hematocrit (Bld) [Volume fraction] 34.2 % 37-47 [facility] Immature granulocytes/100 WB C Auto (Bld)Ordered By: Sam Pearl on 02-04-2024 Immature granulocytes/100 WBC (Bld) 1.300 % 0.0-0.9 [facility] Comment on above: IG% - Immature Granu locytes (promyelocytes, myelocytes and metamyelocytes) > 1% indicates that a LEFT SHIFT is Present. Ketones Test strip Ql (U)Ord ered By: Sam Pearl on 02-04-2024 Ketones Ql (U) Negative Negative [facility] Laboratory - Chemistry and C hemistry - challengeOrdered By: Sam Pearl on 02-04-2024 CO2 [Moles/Vol] 21.0 mmol/L 21.0-32.0 [facility] Urea nitrogen/Creatinine [Mass ratio] 15.0 mg/mg 10-20 [facility] - Hematology and Cell countsOrdered By: Sam Pearl on 02-04-2024 MCH (RBC) [Entitic mass] 29.3 pg 27.0-32.0 [facility] MCHC (RBC) [Mass/Vol] 32.7 g/dL 32-36 [facility] Nucleated RBC/100 WBC (Bld) [Ratio] 0 % 0-5 [facility] Platelet mean volume (Bld) [Entitic vol] 9.2 fL 6.2-12.0 [facility] Platelets (Bld) [#/Vol] 203 10*3/uL 150-450 [facility] - Microbiology an d Antimicrobial susceptibilityOrdered By: Sam Pearl on 02-04-2024 SARS-CoV-2 (COVID-19) RNA ALLYSON+probe Ql (Unsp spec) [facility] Mucus LM Ql (Urine sed)Order ed By: Sam Pearl on 02-04-2024 Mucus Ql (Urine sed) 0 SEEN /hpf [facility] Nitrite Test strip Ql (U)Ord ered By: Sam Pearl on 02-04-2024 Nitrite Ql (U) Negative Negative [facility] No Panel InformationOrdered By: Sam Pearl on 02-04-2024 Estimated Creatinine Clearance Calc 116.68 ml/min [facility] Estimated GFR (MDRD) Amer 92 mL/min >60 [facility] Comment on above: GFR Calc Estimated GFR (MDRD) Non-Af Amer 76 mL/min >60 [facility] Comment on above: Non- GFR Calc Urine RBC 0-5 SEEN /hpf 0-5 [facility] Protein Test strip Ql (U)Ord ered By: Sam Pearl on 02-04-2024 Protein Ql (U) 15 mg/dl Negative [facility] RBC Auto (Bld) [#/Vol]Ordere d By: Sam Pearl on 02-04-2024 RBC (Bld) [#/Vol] 3.82 10*6/uL 4.2-5.4 [facility] Serum or plasma calcium sharron urement (mass/volume)Ordered By: Sam Pearl on 02-04-2024 Calcium [Mass/Vol] 8.4 mg/dL 8.5-10.1 [facility] Serum or plasma creatinine m easurement (mass/volume)Ordered By: Sam Pearl on 02-04-2024 Creatinine [Mass/Vol] 0.87 mg/dL 0.55-1.02 [facility] Comment on above: The validity of the calculated GFR & GFRAA in patients over 70 years has not been determined. Clinical correlation is essential. Serum or plasma urea nitroge n measurement (mass/volume)Ordered By: Sam Pearl on 02-04-2024 Urea nitrogen [Mass/Vol] 13 mg/dL 7-18 [facility] Squamous epithelial cells de tection in urine sediment by light microscopyOrdered By: Sam Pearl on 02-04-2024 Epithelial cells.squamous LM Ql (Urine sed) 0-5 SEEN /hpf 5-10 [facility] Thin prep Papanicolaou smear with manual screeningOrdered By: Sam Pearl on 02-04-2024 Thin prep Papanicolaou smear with manual screening 8 5-15 [facility] Urine blood detectionOrdered By: Sam Pearl on 02-04-2024 RBC Ql (U) 10 /ul Negative [facility] Urine clarityOrdered By: Ramses Pearl on 02-04-2024 Clarity (U) Clear Clear [facility] Urine color determinationOrd ered By: Sam Pearl on 02-04-2024 Color (U) Yellow Yellow [facility] Urine glucose detectionOrder ed By: Sam Pearl on 02-04-2024 Glucose Ql (U) Normal mg/dl Normal [facility] Urine leukocyte esterase det ection by dipstickOrdered By: Sam Pearl on 02-04-2024 Leukocyte esterase Test strip Ql (U) 100 /ul Negative [facility] Urine pHOrdered By: Sam Pearl on 02-04-2024 pH (U) 7.0 [pH] 5.0 - 8.0 [facility] Urine sediment bacteria coun t by microscopy (number/high power field)Ordered By: Sam Pearl on 02-04-2024 Bacteria LM.HPF (Urine sed) [#/Area] 4 /[HPF] None Seen [facility] Urine specific gravity measu rementOrdered By: Sam Pearl on 02-04-2024 Specific gravity (U) [Rel density] 1.010 1.002-1.030 [facility] Urine urobilinogen measureme ntOrdered By: Sam Pearl on 02-04-2024 Urobilinogen Ql (U) Normal mg/dl Normal [facility] Absolute lymphocyte countOrd ered By: Ivette Grimes on 12-06-2023 Lymphocytes Auto (Unsp spec) [#/Vol] 2.89 10*3/uL 0.83-4.51 [facility] Automated lymphocyte count a s percentage of total leukocytesOrdered By: Ivette Grimes on 12-06-2023 Lymphocytes/100 WBC Auto (Unsp spec) 27.0 % 19-41 [facility] Basophil percentageOrdered B y: Ivette Grimes on 12-06-2023 Basophils/100 WBC (Bld) 0.7 % 0-1 [facility] Bilirubin [Mass/Vol] 0.50 mg/dL 0.20-1.00 [facility] Comment on above: For patients on eltr ombopag therapy, use of Dimension [place] TBIL is not recommended. Chloride [Moles/Vol] 113 mmol/L 98-107 [facility] Cholesterol [Mass/Vol] 202 mg/dL <200 [facility] Comment on above: <200 mg/dL Desirable 200-240 mg/dL Borderline >240 mg/dL High Risk Eosinophils/100 WBC (Bld) 1.4 % 0-5 [facility] Glucose [Mass/Vol] 113 mg/dL 74-106 [facility] Comment on above: Fasting Glucose resu lt from 100 to 125 mg/dL suggests IMPAIRED HOMEOSTASIS per A.D.A. criteria. Hemoglobin (Bld) [Mass/Vol] 13.1 g/dL 12.0-15.0 [facility] Monocytes/100 WBC (Bld) 3.6 % 0-10 [facility] Neutrophils (Bld) [#/Vol] 7.1 10*3/uL 2.0-7.7 [facility] Neutrophils/100 WBC (Bld) 66.3 % 47-70 [facility] Potassium [Moles/Vol] 4.0 mmol/L 3.5-5.1 [facility] Protein [Mass/Vol] 8.7 g/dL 6.4-8.2 [facility] Sodium [Moles/Vol] 138 mmol/L 136-145 [facility] Triglyceride [Mass/Vol] 192 mg/dL <199 [facility] Comment on above: The drugs N-Acetylcy steine and Metamizole may falsely depress this assay.Serum Triglycerides Reference Interval Normal <150 mg/dL Borderline high 150 - 199 mg/dL High 200 - 499 mg/dL Very High > or = 500 mg/dL WBC (Bld) [#/Vol] 10.7 10*3/uL 4.4-11.0 [facility] Determination of erythrocyte mean corpuscular volume (MCV)Ordered By: Ivette Grimes on 12-06-2023 MCV (RBC) [Entitic vol] 92.8 fL 81-99 [facility] Erythrocyte distribution wid th ratioOrdered By: Ivette Grimes on 12-06-2023 Erythrocyte distribution width (RBC) [Ratio] 13.1 % 11.6-14.6 [facility] Erythrocyte distribution wid th standard deviationOrdered By: Ivette Grimes on 12-06-2023 Erythrocyte distribution width (RBC) [Entitic vol] 44.4 fL 35.1-43.9 [facility] Hematocrit Auto (Bld) [Volum e fraction]Ordered By: Ivette Grimes on 12-06-2023 Hematocrit (Bld) [Volume fraction] 39.9 % 37-47 [facility] Immature granulocytes/100 WB C Auto (Bld)Ordered By: Ivette Grimes on 12-06-2023 Immature granulocytes/100 WBC (Bld) 1.000 % 0.0-0.9 [facility] Comment on above: IG% - Immature Granu locytes (promyelocytes, myelocytes and metamyelocytes) > 1% indicates that a LEFT SHIFT is Present. Laboratory - Chemistry and C hemistry - challengeOrdered By: Ivette Grimes on 12-06-2023 Albumin/Globulin [Mass ratio] 0.9 {ratio} 0.9-2.4 [facility] ALP [Catalytic activity/Vol] 80 U/L 45-117 [facility] ALT [Catalytic activity/Vol] 24 U/L 13-56 [facility] Cholesterol in HDL (Body fld) [Mass/Vol] 36 mg/dL >40 [facility] Comment on above: The drugs N-Acetylcy steine and Metamizole may falsely depress this assay. Reference Range HDL <40 mg/dL Low HDL Cholesterol HDL >or= 60 mg/dL High HDL Cholesterol Cholesterol in LDL (Body fld) [Moles/Vol] 128 mg/dL 0-130 [facility] Cholesterol in VLDL Calc [Moles/Vol] 38 mg/dL 5-40 [facility] CO2 [Moles/Vol] 19.0 mmol/L 21.0-32.0 [facility] Globulin (S) [Mass/Vol] 4.6 g/dL 2.2-4.2 [facility] Urea nitrogen/Creatinine [Mass ratio] 25.9 mg/mg 10-20 [facility] Laboratory - Hematology and Cell countsOrdered By: Ivette Grimes on 12-06-2023 MCH (RBC) [Entitic mass] 30.5 pg 27.0-32.0 [facility] MCHC (RBC) [Mass/Vol] 32.8 g/dL 32-36 [facility] Nucleated RBC/100 WBC (Bld) [Ratio] 0 % 0-5 [facility] Platelets (Bld) [#/Vol] 241 10*3/uL 150-450 [facility] No Panel InformationOrdered By: Ivette Grimes on 12-06-2023 Estimated GFR (MDRD) Amer 90 mL/min >60 [facility] Comment on above: GFR Calc Estimated GFR (MDRD) Non-Af Amer 74 mL/min >60 [facility] Comment on above: Non- GFR Calc Platelet mean volume Jose-Ec ker (Bld) [Entitic vol]Ordered By: Ivette Grimes on 12-06-2023 Platelet mean volume (Bld) [Entitic vol] 8.8 fL 6.2-12.0 [facility] RBC Auto (Bld) [#/Vol]Ordere d By: Ivette Grimes on 12-06-2023 RBC (Bld) [#/Vol] 4.30 10*6/uL 4.2-5.4 [facility] Serum or plasma calcium sharron urement (mass/volume)Ordered By: Ivette Grimes on 12-06-2023 Calcium [Mass/Vol] 9.1 mg/dL 8.5-10.1 [facility] Serum or plasma creatinine m easurement (mass/volume)Ordered By: Ivette Grimes on 12-06-2023 Creatinine [Mass/Vol] 0.89 mg/dL 0.55-1.02 [facility] Comment on above: The validity of the calculated GFR & GFRAA in patients over 70 years has not been determined. Clinical correlation is essential. Serum or plasma urea nitroge n measurement (mass/volume)Ordered By: Ivette Grimes on 12-06-2023 Urea nitrogen [Mass/Vol] 23 mg/dL 7-18 [facility] Thin prep Papanicolaou smear with manual screeningOrdered By: Ivette Grimes on 12-06-2023 Thin prep Papanicolaou smear with manual screening 4.1 g/dL 3.2-5.0 [facility] Thin prep Papanicolaou smear with manual screening 11 U/L 15-37 [facility] Thin prep Papanicolaou smear with manual screening 6 5-15 [facility] Whole blood hemoglobin A1c/t otal hemoglobin ratio (mass fraction)Ordered By: Ivette Grimes on 12-06-2023 HbA1c (Bld) [Mass fraction] 5.7 % 3.8-5.6 [facility] Comment on above: Normal < 5.7 % Predi abetic 5.7 - 6.4 % Diabetic >or= 6.5 % Please note range changes. Glucose Glucometer (BldC) [M ass/Vol]Ordered By: Sosa Mendez on 08-07-2023 Glucose [Mass/Vol] 157 mg/dL 74-106 [facility] Comment on above: MANAGEMENT OF PATIEN T CARE PER NURSING PROTOCOL Absolute lymphocyte countOrd ered By: Sosa Mendez on 08-06-2023 Lymphocytes Auto (Unsp spec) [#/Vol] 2.45 10*3/uL 0.83-4.51 [facility] Basophil percentageOrdered B y: Sosa Mendez on 08-06-2023 Basophils/100 WBC (Bld) 0.8 % 0-1 [facility] Chloride [Moles/Vol] 111 mmol/L 98-107 [facility] Cholesterol [Mass/Vol] 173 mg/dL <200 [facility] Comment on above: <200 mg/dL Desirable 200-240 mg/dL Borderline >240 mg/dL High Risk Eosinophils/100 WBC (Bld) 3.1 % 0-5 [facility] Glucose [Mass/Vol] 143 mg/dL 74-106 [facility] Comment on above: Fasting Glucose resu lt greater than or equal to 126 mg/dL suggests DIABETES MELLITUS per A.D.A. criteria. Neutrophils (Bld) [#/Vol] 3.9 10*3/uL 2.0-7.7 [facility] Neutrophils/100 WBC (Bld) 54.5 % 47-70 [facility] Potassium [Moles/Vol] 3.6 mmol/L 3.5-5.1 [facility] Sodium [Moles/Vol] 139 mmol/L 136-145 [facility] Triglyceride [Mass/Vol] 325 mg/dL <199 [facility] Comment on above: The drugs N-Acetylcy steine and Metamizole may falsely depress this assay.Serum Triglycerides Reference Interval Normal <150 mg/dL Borderline high 150 - 199 mg/dL High 200 - 499 mg/dL Very High > or = 500 mg/dL WBC (Bld) [#/Vol] 7.1 10*3/uL 4.4-11.0 [facility] Blood erythrocytes count (nu mber/volume)Ordered By: Sosa Mendez on 08-06-2023 RBC (Bld) [#/Vol] 4.15 10*6/uL 4.2-5.4 [facility] Blood hemoglobin measurement (mass/volume)Ordered By: Sosa Mendez on 08-06-2023 Hemoglobin (Bld) [Mass/Vol] 13.0 g/dL 12.0-15.0 [facility] Blood lymphocytes/100 leukoc ytesOrdered By: Sosa Mendez on 08-06-2023 Lymphocytes/100 WBC (Bld) 34.4 % 19-41 [facility] Blood monocytes/100 leukocyt esOrdered By: Sosa Mendez on 08-06-2023 Monocytes/100 WBC (Bld) 5.2 % 0-10 [facility] Blood platelet mean volumeOr dered By: Sosa Mendez on 08-06-2023 Platelet mean volume (Bld) [Entitic vol] 9.4 fL 6.2-12.0 [facility] Determination of erythrocyte mean corpuscular volume (MCV)Ordered By: Sosa Mendez on 08-06-2023 MCV (RBC) [Entitic vol] 95.4 fL 81-99 [facility] Hematocrit Auto (Bld) [Volum e fraction]Ordered By: Sosa Mendez on 08-06-2023 Hematocrit (Bld) [Volume fraction] 39.6 % 37-47 [facility] Laboratory - Chemistry and C hemistry - challengeOrdered By: Sosa Mendez on 08-06-2023 CO2 [Moles/Vol] 23.0 mmol/L 21.0-32.0 [facility] Urea nitrogen/Creatinine [Mass ratio] 15.4 mg/mg 10-20 [facility] Laboratory - Hematology and Cell countsOrdered By: Sosa Mendez on 08-06-2023 Erythrocyte distribution width (RBC) [Entitic vol] 45.4 fL 35.1-43.9 [facility] Erythrocyte distribution width (RBC) [Ratio] 13.0 % 11.6-14.6 [facility] Immature granulocytes/100 WBC (Bld) 2.000 % 0.0-0.9 [facility] Comment on above: IG% - Immature Granu locytes (promyelocytes, myelocytes and metamyelocytes) > 1% indicates that a LEFT SHIFT is Present. MCH (RBC) [Entitic mass] 31.3 pg 27.0-32.0 [facility] Nucleated RBC/100 WBC (Bld) [Ratio] 0 % 0-5 [facility] MCHC Auto (RBC) [Mass/Vol]Or dered By: Sosa Mendez on 08-06-2023 MCHC (RBC) [Mass/Vol] 32.8 g/dL 32-36 [facility] No Panel InformationOrdered By: Sosa Mendez on 08-06-2023 Estimated Creatinine Clearance Calc 92.30 ml/min [facility] Estimated GFR (MDRD) Amer 104 mL/min >60 [facility] Comment on above: GFR Calc Estimated GFR (MDRD) Non-Af Amer 86 mL/min >60 [facility] Comment on above: Non- GFR Calc Platelets bldOrdered By: Shanell Mendez on 08-06-2023 Platelets (Bld) [#/Vol] 184 10*3/uL 150-450 [facility] Serum or plasma calcium sharron urement (mass/volume)Ordered By: Sosa Mendez on 08-06-2023 Calcium [Mass/Vol] 8.2 mg/dL 8.5-10.1 [facility] Serum or plasma cholesterol in HDL measurement (mass/volume)Ordered By: Sosa Mendez on 08-06-2023 Cholesterol in HDL [Mass/Vol] 29 mg/dL >40 [facility] Comment on above: The drugs N-Acetylcy steine and Metamizole may falsely depress this assay. Reference Range HDL <40 mg/dL Low HDL Cholesterol HDL >or= 60 mg/dL High HDL Cholesterol Serum or plasma cholesterol in VLDL measurement (mass/volume)Ordered By: Sosa Mendez on 08-06-2023 Cholesterol in VLDL [Mass/Vol] 65 mg/dL 5-40 [facility] Serum or plasma creatinine m easurement (mass/volume)Ordered By: Sosa Mendez on 08-06-2023 Creatinine [Mass/Vol] 0.78 mg/dL 0.55-1.02 [facility] Comment on above: The validity of the calculated GFR & GFRAA in patients over 70 years has not been determined. Clinical correlation is essential. Serum or plasma low density lipoprotein (LDL) cholesterol measurement (mass/volume)Ordered By: Sosa Mendez on 08-06-2023 Cholesterol in LDL [Mass/Vol] 79 mg/dL 0-130 [facility] Serum or plasma urea nitroge n measurement (mass/volume)Ordered By: Sosa Mendez on 08-06-2023 Urea nitrogen [Mass/Vol] 12 mg/dL 7-18 [facility] Thin prep Papanicolaou smear with manual screeningOrdered By: Sosa Mnedez on 08-06-2023 Thin prep Papanicolaou smear with manual screening 5 5-15 [facility] Absolute lymphocyte countOrd ered By: Niurka Kendall on 08-05-2023 Lymphocytes Auto (Unsp spec) [#/Vol] 2.33 10*3/uL 0.83-4.51 [facility] Basophil percentageOrdered B y: Niurka Kendall on 08-05-2023 Basophils/100 WBC (Bld) 0.9 % 0-1 [facility] Chloride [Moles/Vol] 110 mmol/L 98-107 [facility] Eosinophils/100 WBC (Bld) 2.6 % 0-5 [facility] Glucose [Mass/Vol] 108 mg/dL 74-106 [facility] Comment on above: Fasting Glucose resu lt from 100 to 125 mg/dL suggests IMPAIRED HOMEOSTASIS per A.D.A. criteria. Neutrophils (Bld) [#/Vol] 4.7 10*3/uL 2.0-7.7 [facility] Neutrophils/100 WBC (Bld) 59.9 % 47-70 [facility] Potassium [Moles/Vol] 3.7 mmol/L 3.5-5.1 [facility] Sodium [Moles/Vol] 140 mmol/L 136-145 [facility] WBC (Bld) [#/Vol] 7.8 10*3/uL 4.4-11.0 [facility] Blood erythrocytes count (nu mber/volume)Ordered By: Niurka Kendall on 08-05-2023 RBC (Bld) [#/Vol] 4.04 10*6/uL 4.2-5.4 [facility] Blood hemoglobin measurement (mass/volume)Ordered By: Niurka Kendall on 08-05-2023 Hemoglobin (Bld) [Mass/Vol] 12.9 g/dL 12.0-15.0 [facility] Blood lymphocytes/100 leukoc ytesOrdered By: Niurka Kendall on 08-05-2023 Lymphocytes/100 WBC (Bld) 30.1 % 19-41 [facility] Blood monocytes/100 leukocyt esOrdered By: Niurka Kendall on 08-05-2023 Monocytes/100 WBC (Bld) 5.2 % 0-10 [facility] Blood platelet mean volumeOr dered By: Niurka Kendall on 08-05-2023 Platelet mean volume (Bld) [Entitic vol] 9.7 fL 6.2-12.0 [facility] COVID19 virus antigen assay Ordered By: Niurka Kendall on 08-05-2023 SARS-CoV-2 (COVID-19) Ag IA.rapid Ql (Resp) [facility] SARS-CoV-2 (COVID-19) Ag IA.rapid Ql (Resp) [facility] Determination of erythrocyte mean corpuscular volume (MCV)Ordered By: Niurka Kendall on 08-05-2023 MCV (RBC) [Entitic vol] 97.8 fL 81-99 [facility] Glucose Glucometer (BldC) [M ass/Vol]Ordered By: Niurka Kendall on 08-05-2023 Glucose [Mass/Vol] 120 mg/dL 74-106 [facility] Comment on above: MANAGEMENT OF PATIEN T CARE PER NURSING PROTOCOL Hematocrit Auto (Bld) [Volum e fraction]Ordered By: Niurka Kendall on 08-05-2023 Hematocrit (Bld) [Volume fraction] 39.5 % 37-47 [facility] INR in Blood by Coagulation assayOrdered By: Niurka Kendall on 08-05-2023 INR Coag (Bld) [Relative time] 1.1 {INR} [facility] Laboratory - Chemistry and C hemistry - challengeOrdered By: Niurka Kendall on 08-05-2023 CO2 [Moles/Vol] 24.0 mmol/L 21.0-32.0 [facility] Urea nitrogen/Creatinine [Mass ratio] 20.8 mg/mg 10-20 [facility] Laboratory - CoagulationOrde red By: Niurka Kendall on 08-05-2023 aPTT Coag (Bld) [Time] 32.7 s 24.1-36.2 [facility] PT Coag (PPP) [Time] 14.4 s 11.7-14.9 [facility] Laboratory - Hematology and Cell countsOrdered By: Niurka Kendall on 08-05-2023 Erythrocyte distribution width (RBC) [Entitic vol] 47.0 fL 35.1-43.9 [facility] Erythrocyte distribution width (RBC) [Ratio] 13.1 % 11.6-14.6 [facility] Immature granulocytes/100 WBC (Bld) 1.300 % 0.0-0.9 [facility] Comment on above: IG% - Immature Granu locytes (promyelocytes, myelocytes and metamyelocytes) > 1% indicates that a LEFT SHIFT is Present. MCH (RBC) [Entitic mass] 31.9 pg 27.0-32.0 [facility] Nucleated RBC/100 WBC (Bld) [Ratio] 0 % 0-5 [facility] MCHC Auto (RBC) [Mass/Vol]Or dered By: Niurka Kendall on 08-05-2023 MCHC (RBC) [Mass/Vol] 32.7 g/dL 32-36 [facility] No Panel InformationOrdered By: Niurka Kendall on 08-05-2023 Estimated Creatinine Clearance Calc 99.99 ml/min [facility] Estimated GFR (MDRD) Amer 115 mL/min >60 [facility] Comment on above: GFR Calc Estimated GFR (MDRD) Non-Af Amer 95 mL/min >60 [facility] Comment on above: Non- GFR Calc Thyroid Stimulating Hormone (TSH) 1.54 uIU/mL 0.358-3.74 [facility] Troponin I High Sensitivity 4 pg/mL 3.0-54.0 [facility] Comment on above: Please Note: New Ananth t Units and Gender Specific Reference Ranges. For more information see Policy Stat Procedure [place] High Sensitivity Troponin (TNIH) and attachments. Platelets bldOrdered By: Romina Kendall on 08-05-2023 Platelets (Bld) [#/Vol] 190 10*3/uL 150-450 [facility] Serum or plasma calcium sharron urement (mass/volume)Ordered By: Niurka Kendall on 08-05-2023 Calcium [Mass/Vol] 8.5 mg/dL 8.5-10.1 [facility] Serum or plasma creatinine m easurement (mass/volume)Ordered By: Niurka Kendall on 08-05-2023 Creatinine [Mass/Vol] 0.72 mg/dL 0.55-1.02 [facility] Comment on above: The validity of the calculated GFR & GFRAA in patients over 70 years has not been determined. Clinical correlation is essential. Serum or plasma urea nitroge n measurement (mass/volume)Ordered By: Niurka Kendall on 08-05-2023 Urea nitrogen [Mass/Vol] 15 mg/dL 7-18 [facility] Thin prep Papanicolaou smear with manual screeningOrdered By: Niurka Kendall on 08-05-2023 Thin prep Papanicolaou smear with manual screening 6 5-15 [facility] Whole blood hemoglobin A1c/t otal hemoglobin ratio (mass fraction)Ordered By: Sosa Mendez on 08-05-2023 HbA1c (Bld) [Mass fraction] 6.6 % 3.8-5.6 [facility] Comment on above: Normal < 5.7 % Predi abetic 5.7 - 6.4 % Diabetic >or= 6.5 % Please note range changes. XR Foot - right AP and Later al and obliqueon 05-28-2023 IMPRESSION: No acute osseous abnormalities are identified. Calcaneal spurring. Decal Applier: [facility] Transcribe Date/Time: May 28 2023 11:55A Dictated by : BRITTANY MCCANN MD This examination was interpreted and the report reviewed and electronically signed by: BRITTANY MCCANN MD on May 28 2023 11:56AM [facility] DIVISION OF RADIOLOGY * * [...] and calcaneal enthesophytes. DIVISION OF RADIOLOGY Provider, [facility] [place] - 05/28/2023 * * *Final Report* * [...] acute osseous abnormalities are identified. Calcaneal spurring. [facility] Trans[facility] Date/Time: May 28 2023 11:55A Dictated by : BRITTANY MCCANN MD This examination was interpreted and the report reviewed and electronically signed by: BRITTANY MCCANN MD on May 28 2023 11:56AM EST [facility] Radiology Study observation (narrative) [facility] XR Foot - right AP and Later al and obliqueOrdered By: [facility] Provider on 05-28-2023 [facility] Absolute lymphocyte countOrd ered By: Dr. Grimes on 03-04-2023 Lymphocytes Auto (Unsp spec) [#/Vol] 2.34 10*3/uL 0.83-4.51 [facility] Basophil percentageOrdered B y: Dr. Grimes on 03-04-2023 Basophils/100 WBC (Bld) 1.0 % 0-1 [facility] Chloride [Moles/Vol] 109 mmol[facility]L 98-107 [facility] Eosinophils/100 WBC (Bld) 2.3 % 0-5 [facility] Glucose [Mass/Vol] 142 mg/dL 74-106 [facility] Comment on above: Fasting Glucose resu lt greater than or equal to 126 mg/dL suggests DIABETES MELLITUS per A.D.A. criteria. Neutrophils (Bld) [#/Vol] 5.6 10*3/uL 2.0-7.7 [facility] Neutrophils/100 WBC (Bld) 63.9 % 47-70 [facility] Potassium [Moles/Vol] 3.9 mmol/L 3.5-5.1 [facility] Sodium [Moles/Vol] 138 mmol/L 136-145 [facility] WBC (Bld) [#/Vol] 8.8 10*3/uL 4.4-11.0 [facility] Blood erythrocytes count (nu mber/volume)Ordered By: Dr. Grimes on 03-04-2023 RBC (Bld) [#/Vol] 4.38 10*6/uL 4.2-5.4 [facility] Blood hemoglobin measurement (mass/volume)Ordered By: Dr. Grimes on 03-04-2023 Hemoglobin (Bld) [Mass/Vol] 14.1 g/dL 12.0-15.0 [facility] Blood lymphocytes/100 leukoc ytesOrdered By: Dr. Grimes on 03-04-2023 Lymphocytes/100 WBC (Bld) 26.5 % 19-41 [facility] Blood monocytes/100 leukocyt esOrdered By: Dr. Grimes on 03-04-2023 Monocytes/100 WBC (Bld) 4.6 % 0-10 [facility] Blood platelet mean volumeOr dered By: Dr. Grimes on 03-04-2023 Platelet mean volume (Bld) [Entitic vol] 9.5 fL 6.2-12.0 [facility] Determination of erythrocyte mean corpuscular volume (MCV)Ordered By: Dr. Grimes on 03-04-2023 MCV (RBC) [Entitic vol] 96.8 fL 81-99 [facility] Hematocrit Auto (Bld) [Volum e fraction]Ordered By: Dr. Grimes on 03-04-2023 Hematocrit (Bld) [Volume fraction] 42.4 % 37-47 [facility] Iron measurement (mass/mass) Ordered By: Dr. Grimes on 03-04-2023 Iron (Unsp spec) [Mass/Mass] 92 ug/dL 50-170 [facility] Laboratory - Chemistry and C hemistry - challengeOrdered By: Dr. Grimes on 03-04-2023 CO2 [Moles/Vol] 21.0 mmol/L 21.0-32.0 [facility] Magnesium [Mass/Vol] 1.7 mg/dL 1.6-2.6 [facility] Urea nitrogen/Creatinine [Mass ratio] 17.1 mg/mg 10-20 [facility] Laboratory - Hematology and Cell countsOrdered By: Dr. Grimes on 03-04-2023 Erythrocyte distribution width (RBC) [Entitic vol] 48.1 fL 35.1-43.9 [facility] Erythrocyte distribution width (RBC) [Ratio] 13.3 % 11.6-14.6 [facility] Immature granulocytes/100 WBC (Bld) 1.700 % 0.0-0.9 [facility] Comment on above: IG% - Immature Granu locytes (promyelocytes, myelocytes and metamyelocytes) > 1% indicates that a LEFT SHIFT is Present. MCH (RBC) [Entitic mass] 32.2 pg 27.0-32.0 [facility] Nucleated RBC/100 WBC (Bld) [Ratio] 0 % 0-5 [facility] MCHC Auto (RBC) [Mass/Vol]Or dered By: Dr. Grimes on 03-04-2023 MCHC (RBC) [Mass/Vol] 33.3 g/dL 32-36 [facility] No Panel InformationOrdered By: Dr. Grimes on 03-04-2023 Urine Microalbumin/Creatinine Ratio 63.0 mg/g CRE <30 [facility] Estimated GFR (MDRD) Amer 99 mL/min >60 [facility] Comment on above: GFR Calc Estimated GFR (MDRD) Non-Af Amer 82 mL/min >60 [facility] Comment on above: Non- GFR Calc Total Iron Binding Capacity 323 ug/dL 250-450 [facility] Platelets bldOrdered By: Dr. Grimes on 03-04-2023 Platelets (Bld) [#/Vol] 214 10*3/uL 150-450 [facility] Serum or plasma calcium sharron urement (mass/volume)Ordered By: Dr. Grimes on 03-04-2023 Calcium [Mass/Vol] 8.4 mg/dL 8.5-10.1 [facility] Serum or plasma creatinine m easurement (mass/volume)Ordered By: Dr. Grimes on 03-04-2023 Creatinine [Mass/Vol] 0.82 mg/dL 0.55-1.02 [facility] Comment on above: The validity of the calculated GFR & GFRAA in patients over 70 years has not been determined. Clinical correlation is essential. Serum or plasma iron saturat ion measurement (mass fraction)Ordered By: Dr. Grimes on 03-04-2023 Iron saturation [Mass fraction] 28.5 % 15.0-55.0 [facility] Serum or plasma urea nitroge n measurement (mass/volume)Ordered By: Dr. Grimes on 03-04-2023 Urea nitrogen [Mass/Vol] 14 mg/dL 7-18 [facility] Thin prep Papanicolaou smear with manual screeningOrdered By: Dr. Grimes on 03-04-2023 Thin prep Papanicolaou smear with manual screening 133.0 mg/L NO RANGE EST. [facility] Thin prep Papanicolaou smear with manual screening 8 5-15 [facility] Urine creatinine measurement (mass/volume)Ordered By: Dr. Grimes on 03-04-2023 Creatinine (U) [Mass/Vol] 211.00 mg/dL NO RANGE EST. [facility] Whole blood hemoglobin A1c/t otal hemoglobin ratio (mass fraction)Ordered By: Dr. Grimes on 03-04-2023 HbA1c (Bld) [Mass fraction] 6.1 % 3.8-5.6 [facility] Comment on above: Normal < 5.7 % Predi abetic 5.7 - 6.4 % Diabetic >or= 6.5 % Please note range changes. 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 01/24/2023 by Elle Rasheed MD Allergies: ALLERGIES Allergen Reactions Lidocaine Hives Steroids [Betametha* Hives Data Reviewed: Reviewed personally on today's date. Relevant Imaging: CT Cervical Spine 11/2022 MRI Left Shoulder 10/2021 ([facility]) Small GH effusion, small degenerative change posterior-inferior labrum (Per Dr. Guadarrama) MRI of the right shoulder from an [...] (more content not included)... Normal [facility] 01-24-2023 [facility] Telephone (SPAGZillabyteO) ---- TORI GRAY ([id number]) 1980 F Date Time Provider Department 01/24/23 ELLE RASHEED [employer] During your visit today, we recorded the [...] Hives Date Reviewed: 01/24/2023 Reviewed by: Elle Rasheed MD - Fully Assessed Reason for Visit: [...] by INTRAUTERINE route as directed. - Ipratropium [place] (ATROVENT) 0.03 % nasal spray Use 2 Sprays in the nose every 12 hours. - metroNIDAZOLE (METROGEL) 0.75 % Topical Gel Apply to affected area twice daily. - [place]-3 Fatty Acids (FISH OIL) 500 mg cap Take 1 capsule by mouth once daily. - blood sugar diagnostic (BLOOD GLUCOSE TEST) test strip Test blood sugar(s) 1 times daily. Dx: Type 2 DM - Controlled E11.9 Insulin: Yes - Lancets lancets Test blood sugar(s) 1 times daily. Dx: Type 2 DM - Controlled E11.9 Insulin: No - Rubpydfu-Ti-Bjg-Fe- FA tab Take 1 tablet by mouth [...] 01/23/2010 Routine general medical examination at a [facility]01/23/2010 12/06/2012 Class: Chronic Routine gynecological examination [Z01.419] 01/23/2010 02/22/2014 Class: Chronic Morbid Obesity [E66.01] 01/23/2010 Lumbar Disc Disorder [M51.9] 02/16/2010 (more content not included)... Normal [facility] HCG ( test) Ql (U)o n 01-02-2023 Specific gravity (U) [Rel density] 1.010 Normal 1.005-1.030 [facility] Comment on above: Order Comment: Speci men Type: URINE SPECIMENOrdering Facility: [facility] Address: [address] [place] [address] Performed By: #### 2 106-3 ####[facility] LABDynasil [id number] [place] [id number] [facility] HCG Preg Ur Qlon 01-02-2023 HCG ( test) Ql (U) Negative Normal Negative [facility] Comment on above: Order Comment: Speci men Type: URINE SPECIMENOrdering Facility: [facility] Address: [address] [place] [address] Result Comment: This test is intended to aid in the early detection of . Very dilute urine samples, as indicated by a low specific gravity, may not contain screening representative levels of hCG. This test detects [...] for . Performed By: #### 2 106-3 ####[facility] LABCLIA [id number] [place] [address] [place] HISTORY PHYSICALon HISTORY PHYSICAL HNO ID: [id number] Author: Elle Rasheed MD Service: Pain Management Author Type: Physician [...] 1/2 hr before meal. Unknown Yes Ipratropium [place] Plane (ATROVENT) 0.03 % nasal spray Use 2 Sprays in the nose every 12 hours. Unknown Yes [place]-3 Fatty Acids (FISH OIL) 500 mg cap Take 1 capsule by mouth once daily. Patient taking differently: Take 1 tablet by mouth once daily. 1200 mg 01/02/2023 Yes blood sugar diagnostic (BLOOD GLUCOSE TEST) test strip Test blood sugar(s) 1 times daily. Dx: Type 2 DM - Controlled E11.9 Insulin: Yes Yes Kzrpvbdp-Vv-Irb-Fe- FA tab Take 1 tablet by mouth [...] (Temporal) Resp 22 Ht 170.2 cm (5' 7") Wt 128.4 kg (283 lb) LMP 04/07/2022 [...] VTE Prophylaxis: VTE prophylaxis appropriate SIGNATURE: Elle Rasheed MD PATIENT NAME: Tori Gray DATE: January 02, 2023 TIME: 11:00 AM Normal [facility] OPERATIVE NOon 01-02-2023 OPERATIVE NO HNO ID: [id number] Author: Elle Rasheed MD Service: Pain Management Author Type: Physician Type: Operative Report Filed: 01/02/2023 11:29 AM Note Text: OPERATIVE/PROCEDURE REPORT LOG ID: [id number] SURGERY/PROCEDURE DATE: 01/02/2023 INCISION/PROCEDURE START TIME: 11:18 AM INCISION CLOSE/PROCEDURE END TIME: 11:25 AM SURGEON(S)/PROCEDUR ALIST(S) AND FOUNDER AND PRESIDENT(S): Surgeon(s) and Role: * Elle Rasheed MD - Primary No Additional Staff SURGERY/PROCEDURE(S [...] st performed the entire procedure. SIGNATURE: Elle Rasheed MD PATIENT NAME: Tori Love Isaac DATE: January 02, 2023 TIME: 11:28 AM Normal [facility] CNPN Telephone (AGSPINE3) ---- TORI GRAY ([id number]) 1980 F Date Time Provider Department 11/29/22 ELLE RASHEED AGSPINE3 During your visit today, we recorded the following information about you: Darrion Barahona 11/29/2022 2:40 PM Signed Patient has left a voicemail stating that she had fallen over the weekend and has a concussion. She is wondering if she should reschedule her appointment for 12/05/22 with you in [place] as she is not sure if this will effect her. Please advise. Darrion Rasheed MD 11/29/2022 2:51 PM Signed Sorry to hear about the injury. A concussion would not require a cancellation in and of itself. However, if she has concerns that the bright lights of the hospital, travel, sounds, etc., would aggravate her condition, then it would be reasonable to reschedule. Elle Rasheed III, MD, SULEIMAN Darrion Barahona 11/30/2022 11:56 AM Signed Patient has decided to reschedule out to January 02 at [place], message has been sent to [place]. Darrion Shah Allergies As of Date: 11/29/2022 Noted Allergy Reaction LIDOCAINE 12/24/2019 4 - Hives STEROIDS (BETAMETHASONE DIPROPION* 2 4 - Hives Date Reviewed: 11/27/2022 Reviewed by: Dennise Robles - Fully Assessed Reason for Visit: Patient Question [1020] Cmt: [place] appointment on 12/05/22 Prescriptions as of 11/30/2022 [...] by INTRAUTERINE route as directed. - Ipratropium [place]ane (ATROVENT) 0.03 % nasal spray Use 2 Sprays in the nose every 12 hours. - metroNIDAZOLE (METROGEL) 0.75 % Topical Gel Apply to affected area twice daily. - [place]-3 Fatty Acids (FISH OIL) 500 mg cap Take 1 capsule by mouth once daily. - blood sugar diagnostic (BLOOD GLUCOSE TEST) test strip Test blood sugar(s) 1 times daily. Dx: Type 2 DM - Controlled E11.9 Insulin: Yes - Lancets lancets Test blood sugar(s) 1 times daily. Dx: Type 2 DM - Controlled E11.9 Insulin: No - Fvprajgj-Vp-Xrd-Fe- FA tab Take 1 tablet by mouth [...] 05/06/2009 01/23/2010 Routine general medical examination at [facility]*01/23/2010 12/06/2012 Class: Chronic Routine gynecological examination [Z01.419] 01/23/2010 02/22/2014 Class: Chronic Morbid Obesity [E66.01] 01/23/2010 Lumbar Disc Disorder [M51.9] 02/16/2010 Routine general medical examination at [facility]*12/06/2012 02/22/2014 Anxiety [F41.9] 06/07/2014 Type 2 [...] 04/17/2022 09/04/2022 (more content not included)... Normal [facility] Glucose Glucometer (BldC) [M ass/Vol]Ordered By: Dr. Shabazz on 11-24-2022 Glucose [Mass/Vol] 89 mg/dL 74-106 [facility] Comment on above: MANAGEMENT OF PATIEN T CARE PER NURSING PROTOCOL CNOVon 11-08-2022 CNOV Office Visit (SPAGWO) ---- TORI GRAY ([id number]) 1980 F Date Time Provider Department 11/08/22 1:30 PM ADELINA MARINELLI During your visit today, we recorded the [...] ideas. The patient is not nervous/anxious. Adelina Marinelli, THOM.MAINTAINER OPERATOR 11/08/2022 1:55 PM Signed [facility] Today's Date: 11/08/2022 Last Visit: 07/19/22 [...] suspicious activity was identified. 11/08/2022 by Adelina Marinelli APRN.[facility] Allergies: ALLERGIES Allergen Reactions Lidocaine Hives Steroids [Betametha* Hives Data Reviewed: Reviewed personally on today's date 11/08/2022 Relevant Imaging: MRI C-Spine 08/2021 ([facility]): Very mild degenerative changes MRI L-spine 11/2021 ([facility]): Very mild degenerative changes. Facet arthropathy at L1-2 through L5-S1. MRI Left Shoulder 10/2021 ([facility]): Small GH effusion, small degenerative change posterior-inferior labrum (Per Dr. Guadarrama) MRI of the right shoulder from an [...] No vis (more content not included)... Normal [facility] CNPNon 11-08-2022 CNPN Telephone (SPAGWO) ---- TORI GRAY ([id number]) 1980 F Date Time Provider Department 11/08/22 ELLE RASHEED During your visit today, we recorded the [...] No 9. Does this procedure require a straight truck driver? Yes If yes, has patient been notified that a straight truck driver is needed and must be [...] their 2nd dose of the COVID vaccine.) Leomaribel Calderon Allergies As of Date: 11/08/2022 Noted Allergy Reaction LIDOCAINE 12/24/2019 4 - Hives STEROIDS (BETAMETHASONE DIPROPION* 2 4 - Hives Date Reviewed: 11/08/2022 Reviewed by: Adelina Marinelli APRN.MAINTAINER OPERATOR - Fully Assessed Reason for Visit: Injections [...] by INTRAUTERINE route as directed. - Ipratropium [place] Plane (ATROVENT) 0.03 % nasal spray Use 2 Sprays in the nose every 12 hours. - metroNIDAZOLE (METROGEL) 0.75 % Topical Gel Apply to affected area twice daily. - [place]-3 Fatty Acids (FISH OIL) 500 mg cap Take 1 capsule by mouth once daily. - blood sugar diagnostic (BLOOD GLUCOSE TEST) test strip Test blood sugar(s) 1 times daily. Dx: Type 2 DM - Controlled E11.9 Insulin: Yes - Lancets lancets Test blood sugar(s) 1 times daily. Dx: Type 2 DM - Controlled E11.9 Insulin: No - Xkwmljza-Qm-Pey-Fe- FA tab Take 1 tablet by mouth [...] 05/06/2009 01/23/2010 Routine general medical examination at [facility]*01/23/2010 12/06/2012 Class: Chronic Routine gynecological examination [Z01.419] 01/23/2010 02/22/2014 Class: Chronic Morbid Obesity [E66.01] 01/23/2010 Lumbar (more content not included)... Normal [facility] (AGSPINE2) ---- TORI GRAY ([id number]) 1980 F Date Time Provider Department 10/02/22 ADELINA MARINELLI AGSPINE2 During your visit today, we recorded the following information about you: Adriana Livan 10/02/2022 11:32 AM Signed Patient called in leaving a voicemail stating she had an appointment with Adelina back in Jul. Insurance denied the RFA and was needing to finds out what else she can do? Adriana Livan Adriana Livan 10/02/2022 11:32 AM Signed Patient was called back and spoke with and scheduled with Adelina in [place] beginning of the year. Adriana Licona Allergies As of Date: 10/02/2022 Noted Allergy Reaction LIDOCAINE 12/24/2019 4 - Hives STEROIDS (BETAMETHASONE DIPROPION* 2 4 - Hives Date Reviewed: 09/04/2022 Reviewed by: Dennise Robles - Fully Assessed Reason for Visit: Appointment [186] Patient Question [0227] Prescriptions as of 10/02/2022 - tiZANidine (ZANAFLEX) [...] bed with current PAP mask. - Ipratropium [place] Plane (ATROVENT) 0.03 % nasal spray Use 2 Sprays in the nose every 12 hours. - metroNIDAZOLE (METROGEL) 0.75 % Topical Gel Apply to affected area twice daily. - [place]-3 Fatty Acids (FISH OIL) 500 mg cap Take 1 capsule by mouth once daily. - blood sugar diagnostic (BLOOD GLUCOSE TEST) test strip Test blood sugar(s) 1 times daily. Dx: Type 2 DM - Controlled E11.9 Insulin: Yes - Lancets lancets Test blood sugar(s) 1 times daily. Dx: Type 2 DM - Controlled E11.9 Insulin: No - Rlhuafbd-Ul-Jzb-Fe- FA tab Take 1 tablet by mouth [...] general medical examination at a [facility]*01/23/2010 12/06/2012 Class: Chronic Routine gynecological examination [Z01.419] [...] [R20.0] 12/ (more content not included)... Normal [facility] Absolute lymphocyte countOrd ered By: Dr. Grimes on 09-06-2022 Lymphocytes Auto (Unsp spec) [#/Vol] 2.67 10*3/uL 0.83-4.51 [facility] Basophil percentageOrdered B y: Dr. Grimes on 09-06-2022 Basophils/100 WBC (Bld) 0.5 % 0-1 [facility] Chloride [Moles/Vol] 110 mmol/L 98-107 [facility] Eosinophils/100 WBC (Bld) 2.1 % 0-5 [facility] Glucose [Mass/Vol] 120 mg/dL 74-106 [facility] Comment on above: Fasting Glucose resu lt from 100 to 125 mg/dL suggests IMPAIRED HOMEOSTASIS per A.D.A. criteria. Neutrophils (Bld) [#/Vol] 6.2 10*3/uL 2.0-7.7 [facility] Neutrophils/100 WBC (Bld) 64.2 % 47-70 [facility] Potassium [Moles/Vol] 3.6 mmol/L 3.5-5.1 [facility] Sodium [Moles/Vol] 139 mmol/L 136-145 [facility] WBC (Bld) [#/Vol] 9.6 10*3/uL 4.4-11.0 [facility] Blood erythrocytes count (nu mber/volume)Ordered By: Dr. Grimes on 09-06-2022 RBC (Bld) [#/Vol] 4.29 10*6/uL 4.2-5.4 [facility] Blood hemoglobin measurement (mass/volume)Ordered By: Dr. Grimes on 09-06-2022 Hemoglobin (Bld) [Mass/Vol] 13.6 g/dL 12.0-15.0 [facility] Blood lymphocytes/100 leukoc ytesOrdered By: Dr. Grimes on 09-06-2022 Lymphocytes/100 WBC (Bld) 27.8 % 19-41 [facility] Blood monocytes/100 leukocyt esOrdered By: Dr. Grimes on 09-06-2022 Monocytes/100 WBC (Bld) 4.3 % 0-10 [facility] Blood platelet mean volumeOr dered By: Dr. Grimes on 09-06-2022 Platelet mean volume (Bld) [Entitic vol] 9.6 fL 6.2-12.0 [facility] Determination of erythrocyte mean corpuscular volume (MCV)Ordered By: Dr. Grimes on 09-06-2022 MCV (RBC) [Entitic vol] 90.2 fL 81-99 [facility] Hematocrit Auto (Bld) [Volum e fraction]Ordered By: Dr. Grimes on 09-06-2022 Hematocrit (Bld) [Volume fraction] 38.7 % 37-47 [facility] Laboratory - Chemistry and C hemistry - challengeOrdered By: Dr. Grimes on 09-06-2022 CO2 [Moles/Vol] 23.0 mmol/L 21.0-32.0 [facility] Urea nitrogen/Creatinine [Mass ratio] 15.9 mg/mg 10-20 [facility] - Hematology and Cell countsOrdered By: Dr. Grimes on 09-06-2022 Erythrocyte distribution width (RBC) [Entitic vol] 42.5 fL 35.1-43.9 [facility] Erythrocyte distribution width (RBC) [Ratio] 12.9 % 11.6-14.6 [facility] Immature granulocytes/100 WBC (Bld) 1.100 % 0.0-0.9 [facility] Comment on above: IG% - Immature Granu locytes (promyelocytes, myelocytes and metamyelocytes) > 1% indicates that a LEFT SHIFT is Present. MCH (RBC) [Entitic mass] 31.7 pg 27.0-32.0 [facility] Nucleated RBC/100 WBC (Bld) [Ratio] 0 % 0-5 [facility] MCHC Auto (RBC) [Mass/Vol]Or dered By: Dr. Grimes on 09-06-2022 MCHC (RBC) [Mass/Vol] 35.1 g/dL 32-36 [facility] No Panel InformationOrdered By: Dr. Grimes on 09-06-2022 Estimated GFR (MDRD) Amer 100 mL/min >60 [facility] Comment on above: GFR Calc Estimated GFR (MDRD) Non-Af Amer 82 mL/min >60 [facility] Comment on above: Non- GFR Calc Thyroid Stimulating Hormone (TSH) 1.56 uIU/mL 0.358-3.74 [facility] Platelets bldOrdered By: Dr. Grimes on 09-06-2022 Platelets (Bld) [#/Vol] 190 10*3/uL 150-450 [facility] Serum or plasma calcium sharron urement (mass/volume)Ordered By: Dr. Grimes on 09-06-2022 Calcium [Mass/Vol] 8.7 mg/dL 8.5-10.1 [facility] Serum or plasma creatinine m easurement (mass/volume)Ordered By: Dr. Grimes on 09-06-2022 Creatinine [Mass/Vol] 0.82 mg/dL 0.55-1.02 [facility] Comment on above: The validity of the calculated GFR & GFRAA in patients over 70 years has not been determined. Clinical correlation is essential. Serum or plasma urea nitroge n measurement (mass/volume)Ordered By: Dr. Grimes on 09-06-2022 Urea nitrogen [Mass/Vol] 13 mg/dL 7-18 [facility] Thin prep Papanicolaou smear with manual screeningOrdered By: Dr. Grimes on 09-06-2022 Thin prep Papanicolaou smear with manual screening 6 5-15 [facility] - Chemistry and C hemistry - challengeOrdered By: Dr. Guerrero on 08-29-2022 Magnesium [Mass/Vol] 1.7 mg/dL 1.6-2.6 [facility] Basophil percentageOrdered B y: Dr. Grimes on 08-08-2022 Cholesterol [Mass/Vol] 168 mg/dL <200 [facility] Comment on above: <200 mg/dL Desirable 200-240 mg/dL Borderline >240 mg/dL High Risk Triglyceride [Mass/Vol] 176 mg/dL <199 [facility] Comment on above: The drugs N-Acetylcy steine and Metamizole may falsely depress this assay.Serum Triglycerides Reference Interval Normal <150 mg/dL Borderline high 150 - 199 mg/dL High 200 - 499 mg/dL Very High > or = 500 mg/dL [facility] 08-08-2022 GABRIELAN Telephone (AGSPHWG) ---- TORI GRAY ([id number]) 1980 F Date Time Provider Department 08/08/22 YVES, ADELINA rKystle AGSPHWG During your visit today, we recorded the following information about you: Adelina Marinelli APRN.GABRIELA 08/08/2022 12:55 PM Signed Please advise patient insurance will not approve the RFA of her shoulder. Another option would be to repeat the LEFT scapular NB, but with steroids for a therapeutic effect. If she would like to proceed with this option please let me know and will place the order. Thank you, Adelina Marinelli APRN.MAINTAINER OPERATOR Pankaj Lidia 08/10/2022 2:13 PM Signed Left patient a detailed message informing her of this information. Also left the number for her to call back. Allergies As of Date: 08/08/2022 Noted Allergy Reaction LIDOCAINE 12/24/2019 4 - Hives STEROIDS (BETAMETHASONE DIPROPION* 2 4 - Hives Date Reviewed: 07/19/2022 Reviewed by: Karen Bansal APRN.MAINTAINER OPERATOR - Fully Assessed Reason for Visit: Patient [...] bed with current PAP mask. - Ipratropium [place] Plane (ATROVENT) 0.03 % nasal spray Use 2 Sprays in the nose every 12 hours. - metroNIDAZOLE (METROGEL) 0.75 % Topical Gel Apply to affected area twice daily. - [place]-3 Fatty Acids (FISH OIL) 500 mg cap Take 1 capsule by mouth once daily. - blood sugar diagnostic (BLOOD GLUCOSE TEST) test strip Test blood sugar(s) 1 times daily. Dx: Type 2 DM - Controlled E11.9 Insulin: Yes - Lancets lancets Test blood sugar(s) 1 times daily. Dx: Type 2 DM - Controlled E11.9 Insulin: No - Gjgrrdls-Cl-Mdu-Fe- FA tab Take 1 tablet by mouth [...] 05/06/2009 01/23/2010 Routine general medical examination at [facility]*01/23/2010 12/06/2012 Class: Chronic Routine gynecological examination [...] ECG [R94.31] 03/31/2020 Encounter Status:Closed by ADELINA MARINELLI on 08/08/22 [facility] No Panel InformationOrdered By: Dr. Grimes on 08-08-2022 Thyroid Stimulating Hormone (TSH) 3.38 uIU/mL 0.358-3.74 [facility] Serum or plasma cholesterol in HDL measurement (mass/volume)Ordered By: Dr. Grimes on 08-08-2022 Cholesterol in HDL [Mass/Vol] 37 mg/dL >40 [facility] Comment on above: The drugs N-Acetylcy steine and Metamizole may falsely depress this assay. Reference Range HDL <40 mg/dL Low HDL Cholesterol HDL >or= 60 mg/dL High HDL Cholesterol Serum or plasma cholesterol in VLDL measurement (mass/volume)Ordered By: Dr. Grimes on 08-08-2022 Cholesterol in VLDL [Mass/Vol] 35 mg/dL 5-40 [facility] Serum or plasma low density lipoprotein (LDL) cholesterol measurement (mass/volume)Ordered By: Dr. Grimes on 08-08-2022 Cholesterol in LDL [Mass/Vol] 96 mg/dL 0-130 [facility] Whole blood hemoglobin A1c/t otal hemoglobin ratio (mass fraction)Ordered By: Dr. Grimes on 08-08-2022 HbA1c (Bld) [Mass fraction] 5.3 % 3.8-5.6 [facility] Comment on above: Normal < 5.7 % Predi abetic 5.7 - 6.4 % Diabetic >or= 6.5 % Please note range changes. CNCOon 07-19-2022 CNCO Letter Text Normal [facility] CNOVon 07-19-2022 CNOV Office Visit (SPAGWO) ---- TORI GRAY ([id number]) 1980 F Date Time Provider Department 07/19/22 9:45 AM ADELINA MARINELLI During your visit today, we recorded the following information about you: Pulse Respiration 63/minute 16/minute Tinaa Cifuentes MA 07/19/2022 10:17 AM Signed Review [...] ideas. The patient is not nervous/anxious. Adelina Marinelli APRN.MAINTAINER OPERATOR 07/19/2022 10:17 AM Signed [facility] Today's Date: 07/19/2022 Last Visit: 05/24/22 [...] reported: See above Recall: Patient of Dr. Rasheed. Current Status: INTAKE PAIN ASSESSMENT 06/07/2022 07/19/2022 [...] small degenerative change posterior-inferior labrum (Per Dr. Guadarrama) MRI of the right shoulder from an outside facility is essentially normal with some minor degenerative labral fraying and a joint effusion. Recent labs: Creatinine Date Value Ref Range Status 08/12/2015 0.59 (L) 0.70 - 1.40 mg/dL Final @lastegfr(gfr)@ Glucose, Point of Care Date Value Ref Range Status 05/10/2022 104 (A) 74 - 99 mg/dL Final Comment: Location:[facility], [address], [place], [place], [address] The Accu-Chek Inform II glucose meter has [...] 05/09/22 LEFT suprascapular NB 75% Compliance: [facility] website checked and validated. All prescriptions have been APPROPRIATELY filled. No suspicious activity was identified. 07/19/2022 by Adelina Marinelli APRN.MAINTAINER OPERATOR Last Drug screen: Not Applicable Risk Assessment: VAHE-7: (more content not included)... Normal [facility] CNPNon 07-19-2022 CNPN Telephone (SPAGWO) ---- TORI GRAY ([id number]) 1980 F Date Time Provider Department 07/19/22 ELLE RASHEED SPAGWO During your visit today, we recorded [...] year? Yes If yes, When and Where? [facility], currently attending (Medical Records Release needs [...] Hives Date Reviewed: 07/19/2022 Reviewed by: Adelina Marinelli APRN.MAINTAINER OPERATOR - Fully Assessed Reason for Visit: Patient [...] bed with current PAP mask. - Ipratropium [place] Plane (ATROVENT) 0.03 % nasal spray Use 2 Sprays in the nose every 12 hours. - metroNIDAZOLE (METROGEL) 0.75 % Topical Gel Apply to affected area twice daily. - [place]-3 Fatty Acids (FISH OIL) 500 mg cap Take 1 capsule by mouth once daily. - blood sugar diagnostic (BLOOD GLUCOSE TEST) test strip Test blood sugar(s) 1 times daily. Dx: Type 2 DM - Controlled E11.9 Insulin: Yes - Lancets lancets Test blood sugar(s) 1 times daily. Dx: Type 2 DM - Controlled E11.9 Insulin: No - Ecblfvia-Dz-Bta-Fe- FA tab Take 1 tablet by mouth [...] general medical examination at a [facility]*01/23/2010 12/06/2012 Class: Chronic Routine gynecological examination [Z01.419] 01/23/2010 02/22/2014 Class: Chronic Morbid Obesity [E66.01] 01/23/2010 Lumbar Disc Disorder [M51.9] 02/16/2010 Routine general medical examination at [facility]*12/06/2012 02/22/2014 Anxiety [F41.9] 06/07/2014 Type 2 diabetes mellitus with microalbuminuria,*0 07/04/2018 Fatty liver [K76.0] 07/21/2018 LETITIA (obstructive sleep apnea) [G47 (more content not included)... Normal [facility] Absolute lymphocyte counton 06-05-2022 Lymphocytes Auto (Unsp spec) [#/Vol] 2.26 10*3/uL 0.83-4.51 [facility] Work Phone: Absolute reticulocyte counto n 06-05-2022 Reticulocytes (Bld) [#/Vol] 0.00 10*3/uL 0-5 [facility] Work Phone: Basophil percentageon 2021 Basophil percentage 3.4 mg/dL 2.5-4.9 [facility] Work Phone: Bilirubin [Mass/Vol] 0.60 mg/dL 0.20-1.00 [facility] Work Phone: Comment on above: For patients on eltr ombopag therapy, use of Dimension [place] TBIL is not recommended. Chloride [Moles/Vol] 108 mmol/L 98-107 [facility] Work Phone: Cholesterol [Mass/Vol] 180 mg/dL <200 [facility] Work Phone: Comment on above: <200 mg/dL Desirable 200-240 mg/dL Borderline >240 mg/dL High Risk Glucose [Mass/Vol] 100 mg/dL 74-106 [facility] Work Phone: Comment on above: Fasting Glucose resu lt from 100 to 125 mg/dL suggests IMPAIRED HOMEOSTASIS per A.D.A. criteria. Neutrophils (Bld) [#/Vol] 5.5 10*3/uL 2.0-7.7 [facility] Work Phone: Potassium [Moles/Vol] 3.6 mmol/L 3.5-5.1 [facility] Work Phone: Protein [Mass/Vol] 8.2 g/dL 6.4-8.2 [facility] Work Phone: Sodium [Moles/Vol] 137 mmol/L 136-145 [facility] Work Phone: Triglyceride [Mass/Vol] 418 mg/dL <[address] [facility] Work Phone: Comment on above: The [...] (Bld) [#/Vol] 8.6 10*3/uL 4.4-11.0 [facility] Work Phone: Bilirubin Test strip Ql (U)o n 06-05-2022 Bilirubin Ql (U) Negative Negative [facility] Work Phone: Blood erythrocytes count (nu mber/volume)on 06-05-2022 RBC (Bld) [#/Vol] 4.49 10*6/uL 4.2-5.4 [facility] Work Phone: Blood hemoglobin measurement (mass/volume)on 06-05-2022 Hemoglobin (Bld) [Mass/Vol] 14.0 g/dL 12.0-15.0 [facility] Work Phone: Blood platelet mean volumeon 06-05-2022 Platelet mean volume (Bld) [Entitic vol] 9.2 fL 6.2-12.0 [facility] Work Phone: Determination of erythrocyte mean corpuscular volume (MCV)on 06-05-2022 MCV (RBC) [Entitic vol] 92.7 fL 81-99 [facility] Work Phone: Direct bilirubinon Bilirubin.direct [Mass/Vol] 0.11 mg/dL 0.00-0.30 [facility] Work Phone: Hematocrit Auto (Bld) [Volum e fraction]on 06-05-2022 Hematocrit (Bld) [Volume fraction] 41.6 % 37-47 [facility] Work Phone: Ketones Test strip Ql (U)on 06-05-2022 Ketones Ql (U) Negative Negative [facility] Work Phone: Laboratory - Chemistry and C hemistry - challengeon 06-05-2022 ALP [Catalytic activity/Vol] 73 U/L 45-117 [facility] Work Phone: ALT [Catalytic activity/Vol] 24 U/L 13-56 [facility] Work Phone: Cholesterol.total/Choles terol in HDL [Mass ratio] 5.50 {ratio} [facility] Work Phone: CO2 [Moles/Vol] 25.0 mmol/L 21.0-32.0 [facility] Work Phone: Globulin (S) [Mass/Vol] 4.1 g/dL 2.2-4.2 [facility] Work Phone: Urea nitrogen/Creatinine [Mass ratio] 16.6 mg/mg 10-20 [facility] Work Phone: Laboratory - Hematology and Cell countson 06-05-2022 Erythrocyte distribution width (RBC) [Entitic vol] 44.2 fL 35.1-43.9 [facility] Work Phone: Erythrocyte distribution width (RBC) [Ratio] 13.2 % 11.6-14.6 [facility] Work Phone: MCH (RBC) [Entitic mass] 31.2 pg 27.0-32.0 [facility] Work Phone: Nucleated RBC/100 WBC (Bld) [Ratio] 0 % 0-5 [facility] Work Phone: MCHC Auto (RBC) [Mass/Vol]on 06-05-2022 MCHC (RBC) [Mass/Vol] 33.7 g/dL 32-36 [facility] Work Phone: Nitrite Test strip Ql (U)on 06-05-2022 Nitrite Ql (U) Negative Negative [facility] Work Phone: No Panel Informationon 06-05 Estimated GFR (MDRD) Amer 115 mL/min >60 [facility] Work Phone: Comment on above: GFR Calc Estimated GFR (MDRD) Non-Af Amer 95 mL/min >60 [facility] Work Phone: Comment on above: Non- GFR Calc Platelets bldon 06-05-2022 Platelets (Bld) [#/Vol] 200 10*3/uL 150-450 [facility] Work Phone: Protein Test strip Ql (U)on 06-05-2022 Protein Ql (U) 15 mg/dl Negative [facility] Work Phone: Segmented neutrophils/100 WB C Auto (Bld)on 06-05-2022 Segmented neutrophils/100 WBC (Bld) 64.3 % 47-70 [facility] Work Phone: Serum or plasma albumin sharron urement (mass/volume)on 06-05-2022 Albumin [Mass/Vol] 4.1 g/dL 3.2-5.0 [facility] Work Phone: Serum or plasma albumin/glob ulin mass ratioon 06-05-2022 Albumin/Globulin [Mass ratio] 1.0 {ratio} 0.9-2.4 [facility] Work Phone: Serum or plasma calcium sharron urement (mass/volume)on 06-05-2022 Calcium [Mass/Vol] 8.7 mg/dL 8.5-10.1 [facility] Work Phone: Serum or plasma cholesterol in HDL measurement (mass/volume)on 06-05-2022 Cholesterol in HDL [Mass/Vol] 33 mg/dL >40 [facility] Work Phone: Comment on above: The drugs N-Acetylcy steine and Metamizole may falsely depress this assay. Reference Range HDL <40 mg/dL Low HDL Cholesterol HDL >or= 60 mg/dL High HDL Cholesterol Serum or plasma cholesterol in VLDL measurement (mass/volume)on 06-05-2022 Cholesterol in VLDL [Mass/Vol] [facility] Work Phone: Comment on above: Test not performed Serum or plasma creatinine m easurement (mass/volume)on 06-05-2022 Creatinine [Mass/Vol] 0.72 mg/dL 0.55-1.02 [facility] Work Phone: Comment on above: The validity of the calculated GFR & GFRAA in patients over 70 years has not been determined. Clinical correlation is essential. Serum or plasma low density lipoprotein (LDL) cholesterol measurement (mass/volume)on 06-05-2022 Cholesterol in LDL [Mass/Vol] [facility] Work Phone: Comment on above: Test not performed Serum or plasma urea nitroge n measurement (mass/volume)on 06-05-2022 Urea nitrogen [Mass/Vol] 12 mg/dL 7-18 [facility] Work Phone: Serum or plasma uric acid me asurement (mass/volume)on 06-05-2022 Urate [Mass/Vol] 5.6 mg/dL 2.6-6.0 [facility] Work Phone: Comment on above: The drugs N-Acetylcy steine and Metamizole may falsely depress this assay. Thin prep Papanicolaou smear with manual screeningon 06-05-2022 Thin prep Papanicolaou smear with manual screening 14 U/L 15-37 [facility] Work Phone: Thin prep Papanicolaou smear with manual screening 4 5-15 [facility] Work Phone: Thin prep Papanicolaou smear with manual screening 152 U/L 84-246 [facility] Work Phone: Urine blood detectionon 08-0 RBC Ql (U) Negative Negative [facility] Work Phone: Urine clarityon 06-05-2022 Clarity (U) Sl. Cloudy Clear [facility] Work Phone: Urine color determinationon 06-05-2022 Color (U) Yellow Yellow [facility] Work Phone: Urine glucose detectionon Glucose Ql (U) Normal mg/dl Normal [facility] Work Phone: Urine leukocyte esterase det ection by dipstickon 06-05-2022 Leukocyte esterase Test strip Ql (U) 500 /ul Negative [facility] Work Phone: Urine pHon 06-05-2022 pH (U) 5.0 [pH] 5.0 - 8.0 [facility] Work Phone: Urine specific gravity measu rementon 06-05-2022 Specific gravity (U) [Rel density] 1.020 1.002-1.030 [facility] Work Phone: Urobilinogen Auto test strip Ql (U)on 06-05-2022 Urobilinogen Ql (U) Normal mg/dl Normal [facility] Work Phone: CNOVon 05-24-2022 CNOV Office Visit (SPAGWO) ---- TORI GRAY ([id number]) 1980 F Date Time Provider Department 05/24/22 11:00 AM ADELINA MARINELLIWAsha During your visit today, we recorded the [...] ideas. The patient is not nervous/anxious. Adelina Marinelli APRN.MAINTAINER OPERATOR 05/24/2022 10:08 PM Signed [facility] Today's Date: 05/24/2022 Last Visit: 03/29/22 [...] LEFT suprascapular NB on 05/10/[address] Rasheed, reports 75% relief, still having relief. Reports that the pressure in her shoulder has resolved since the injection. ROM has also improved significanty. 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 Rasheed Current Status: INTAKE PAIN ASSESSMENT 05/10/2022 05/24/2022 [...] degenerative change posterior-inferior labrum ? (Per Dr. Guadarrama) MRI of the right shoulder from an outside facility is essentially normal with some (more content not included)... Normal [facility] CNPIilana 05-11-2022 CNPN Telephone (AGSPHWG) ---- ISAACROSIECHELSEY Love ([id number]) 1980 F Date Time Provider Department 05/11/22 ELLE RASHEED AGSPHWG During your visit today, we recorded [...] bed with current PAP mask. - Ipratropium [place] Plane (ATROVENT) 0.03 % nasal spray Use 2 Sprays in the nose every 12 hours. - metroNIDAZOLE (METROGEL) 0.75 % Topical Gel Apply to affected area twice daily. - [place]-3 Fatty Acids (FISH OIL) 500 mg cap Take 1 capsule by mouth once daily. - blood sugar diagnostic (BLOOD GLUCOSE TEST) test strip Test blood sugar(s) 1 times daily. Dx: Type 2 DM - Controlled E11.9 Insulin: Yes - Lancets lancets Test blood sugar(s) 1 times daily. Dx: Type 2 DM - Controlled E11.9 Insulin: No - Gzhwzcey-Yl-Hjc-Fe- FA ( FORMULA) ORAL Tab Take 1 [...] general medical examination at a [facility]*12/06/2012 02/22/2014 Anxiety [F41.9] 06/07/2014 Type 2 diabetes mellitus with microalbuminuria,*0 07/04/2018 Fatty liver [K76.0] 07/21/2018 LETITIA (obstructive sleep apnea) [G47.33] 07/21/2018 Microalbuminuria [R80.9] 09/30/2018 Obesity, Class III, BMI >= 40 [E66.01] 11/26/2019 Prolonged Q-T interval on ECG [R94.31] 03/31/2020 Encounter Status:Closed by LIVIA LUNA on 05/11/22 [facility] GLUCOSE, BLOOD (POC)on 05-10 Glucose [Mass/Vol] 104 mg/dL Abnormal 74 - 99 mg/dL [facility] CNCOon 03-29-2022 CNCO Letter Text Normal [facility] CNOVon 03-29-2022 CNOV Office Visit (SPAGWO) ---- TORI GRAY ([id number]) 1980 F Date Time Provider Department 03/29/22 11:00 AM ELLE RASHEED During your visit today, we recorded the following information about you: Pulse Respiration Normal [facility] CNPNon 03-29-2022 CNPN Telephone (SPAGWO) ---- TORI GRAY ([id number]) 1980 F Date Time Provider Department 03/29/22 ELLE RASHEED During your visit today, we recorded the [...] Hives Date Reviewed: 03/29/2022 Reviewed by: Elle Rasheed MD - Fully Assessed Reason for Visit: [...] bed with current PAP mask. - Ipratropium [place] Plane (ATROVENT) 0.03 % nasal spray Use 2 Sprays in the nose every 12 hours. - metroNIDAZOLE (METROGEL) 0.75 % Topical Gel Apply to affected area twice daily. - [place]-3 Fatty Acids (FISH OIL) 500 mg cap Take 1 capsule by mouth once daily. - blood sugar diagnostic (BLOOD GLUCOSE TEST) test strip Test blood sugar(s) 1 times daily. Dx: Type 2 DM - Controlled E11.9 Insulin: Yes - Lancets lancets Test blood sugar(s) 1 times daily. Dx: Type 2 DM - Controlled E11.9 Insulin: No - Keigeoap-Yx-Hvo-Fe- FA ( FORMULA) ORAL Tab Take 1 [...] general medical examination at a [facility]*01/23/2010 12/06/2012 Class: Chronic Routine gynecological examination [Z01.419] 01/23/2010 02/22/2014 Class: Chronic Morbid Obesity [E66.01] 01/23/2010 Lumbar Disc Disorder [M51.9] 02/16/2010 Routine general medical examination at a [facility]*12/06/2012 02/22/2014 Anxiety [F41.9] 06/07/2014 Type 2 diabetes mellitus with microalbuminuria,*0 07/04/2018 Fatty liver [K76.0] 07/21/2018 LETITIA (obstructive sleep apnea) [G47.33] 07/21/2018 Microalbuminuria [R80.9] 09/30/2018 Obesity, Class III, BMI >= 40 [E66.01] 11/26/2019 Prolo (more content not included)... Normal [facility] Basophil percentageon 2021 Cholesterol [Mass/Vol] 178 mg/dL <200 [facility] Comment on above: <200 mg/dL Desirable 200-240 mg/dL Borderline >240 mg/dL High Risk Triglyceride [Mass/Vol] 183 mg/dL [facility] Comment on above: The drugs N-Acetylcy steine and Metamizole may falsely depress this assay.Serum Triglycerides Reference Interval Normal <150 mg/dL Borderline high 150 - 199 mg/dL High 200 - 499 mg/dL Very High > or = 500 mg/dL Bilirubin [Mass/Vol] 0.30 mg/dL 0.20-1.00 [facility] Work Phone: Comment on above: For patients on eltr ombopag therapy, use of Dimension [place] TBIL is not recommended. Chloride [Moles/Vol] 109 mmol/L 98-107 [facility] Work Phone: Glucose [Mass/Vol] 126 mg/dL 74-106 [facility] Work Phone: Comment on above: Fasting Glucose resu lt greater than or equal to 126 mg/dL suggests DIABETES MELLITUS per A.D.A. criteria. Potassium [Moles/Vol] 4.1 mmol/L 3.5-5.1 [facility] Work Phone: Protein [Mass/Vol] 8.4 g/dL 6.4-8.2 [facility] Work Phone: Sodium [Moles/Vol] 136 mmol/L 136-145 [facility] Work Phone: WBC (Bld) [#/Vol] 9.6 10*3/uL 4.4-11.0 [facility] Work Phone: Blood erythrocytes count (nu mber/volume)on 02-07-2022 RBC (Bld) [#/Vol] 4.63 10*6/uL 4.2-5.4 [facility] Work Phone: Blood hemoglobin measurement (mass/volume)on 02-07-2022 Hemoglobin (Bld) [Mass/Vol] 14.2 g/dL 12.0-15.0 [facility] Work Phone: Blood platelet mean volumeon 02-07-2022 Platelet mean volume (Bld) [Entitic vol] 9.5 fL 6.2-12.0 [facility] Work Phone: Determination of erythrocyte mean corpuscular volume (MCV)on 02-07-2022 MCV (RBC) [Entitic vol] 91.6 fL 81-99 [facility] Work Phone: Hematocrit Auto (Bld) [Volum e fraction]on 02-07-2022 Hematocrit (Bld) [Volume fraction] 42.4 % 37-47 [facility] Work Phone: LIPID PANEL (OUTSIDE)on VLDL Cholesterol 37 [facility] Laboratory - Chemistry and C hemistry - challengeon 02-07-2022 ALP [Catalytic activity/Vol] 87 U/L 45-117 [facility] Work Phone: ALT [Catalytic activity/Vol] 29 U/L 13-56 [facility] Work Phone: CO2 [Moles/Vol] 23.0 mmol/L 21.0-32.0 [facility] Work Phone: Globulin (S) [Mass/Vol] 4.3 g/dL 2.2-4.2 [facility] Work Phone: Magnesium [Mass/Vol] 1.7 mg/dL 1.6-2.6 [facility] Work Phone: Urea nitrogen/Creatinine [Mass ratio] 15.1 mg/mg 10-20 [facility] Work Phone: Laboratory - Hematology and Cell countson 02-07-2022 Erythrocyte distribution width (RBC) [Entitic vol] 43.8 fL 35.1-43.9 [facility] Work Phone: Erythrocyte distribution width (RBC) [Ratio] 13.2 % 11.6-14.6 [facility] Work Phone: MCH (RBC) [Entitic mass] 30.7 pg 27.0-32.0 [facility] Work Phone: MCHC Auto (RBC) [Mass/Vol]on 02-07-2022 MCHC (RBC) [Mass/Vol] 33.5 g/dL 32-36 [facility] Work Phone: MICROALBUMIN/CREATININE UR W RATIO (EXTERNAL)on 02-07-2022 Albumin/Creat Ratio 153.4 [facility] Creatinine Urine 189 [facility] Microalbumin, Random urine 290 [facility] No Panel Informationon 02-07 Urine Microalbumin/Creatinine Ratio 153.4 mg/g CRE <30 [facility] Work Phone: Estimated GFR (MDRD) Amer 114 mL/min >60 [facility] Work Phone: Comment on above: GFR Calc Estimated GFR (MDRD) Non-Af Amer 94 mL/min >60 [facility] Work Phone: Comment on above: Non- GFR Calc Thyroid Stimulating Hormone (TSH) 2.76 uIU/mL 0.358-3.74 [facility] Work Phone: Platelets bldon 02-07-2022 Platelets (Bld) [#/Vol] 223 10*3/uL 150-450 [facility] Work Phone: Serum or plasma albumin sharron urement (mass/volume)on 02-07-2022 Albumin [Mass/Vol] 4.1 g/dL 3.2-5.0 [facility] Work Phone: Serum or plasma albumin/glob ulin mass ratioon 02-07-2022 Albumin/Globulin [Mass ratio] 1.0 {ratio} 0.9-2.4 [facility] Work Phone: Serum or plasma calcium sharron urement (mass/volume)on 02-07-2022 Calcium [Mass/Vol] 8.8 mg/dL 8.5-10.1 [facility] Work Phone: Serum or plasma cholesterol in HDL measurement (mass/volume)on 02-07-2022 Cholesterol in HDL [Mass/Vol] 37 mg/dL [facility] Comment on above: The drugs N-Acetylcy steine and Metamizole may falsely depress this assay. Reference Range HDL <40 mg/dL Low HDL Cholesterol HDL >or= 60 mg/dL High HDL Cholesterol Serum or plasma cholesterol in VLDL measurement (mass/volume)on 02-07-2022 Cholesterol in VLDL [Mass/Vol] 37 mg/dL 5-40 [facility] Work Phone: Serum or plasma creatinine m easurement (mass/volume)on 02-07-2022 Creatinine [Mass/Vol] 0.73 mg/dL 0.55-1.02 [facility] Work Phone: Comment on above: The validity of the calculated GFR & GFRAA in patients over 70 years has not been determined. Clinical correlation is essential. Serum or plasma low density lipoprotein (LDL) cholesterol measurement (mass/volume)on 02-07-2022 Cholesterol in LDL [Mass/Vol] 104 mg/dL 0-130 [facility] Serum or plasma urea nitroge n measurement (mass/volume)on 02-07-2022 Urea nitrogen [Mass/Vol] 11 mg/dL 7-18 [facility] Work Phone: TSH (EXTERNAL)on 02-07-2022 TSH 2.76 IU/ml 0.2 - 5.6 IU/ml [facility] Thin prep Papanicolaou smear with manual screeningon 02-07-2022 Thin prep Papanicolaou smear with manual screening 290.0 mg/L NO RANGE EST. [facility] Work Phone: Thin prep Papanicolaou smear with manual screening 13 U/L 15-37 [facility] Work Phone: Thin prep Papanicolaou smear with manual screening 4 5-15 [facility] Work Phone: Urine creatinine measurement (mass/volume)on 02-07-2022 Creatinine (U) [Mass/Vol] 189.00 mg/dL NO RANGE EST. [facility] Work Phone: Whole blood hemoglobin A1c/t otal hemoglobin ratio (mass fraction)on 02-07-2022 HbA1c (Bld) [Mass fraction] 5.1 % 3.8-5.6 [facility] Comment on above: Normal < 5.7 % Predi abetic 5.7 - 6.4 % Diabetic >or= 6.5 % Please note range changes. Hany 01-29-2022 TAYLER Telephone (AGSPINE3) ---- TORI GRAY ([id number]) 1980 F Date Time Provider Department 01/29/22 ELLE RASHEED AGSPINE3 During your visit today, we recorded the following information about you: Darrion Brooklyn 01/29/2022 3:13 PM Signed ----- Message from Gale Quinonez sent at 01/29/2022 3:10 PM EDT ----- Regarding: FW: New Referral ----- Message ----- From: Little Carrillo Sent: 01/29/2022 7:34 AM EDT To: Calvin Gaytan, Gale Quinonez Subject: FW: New Referral ----- Message ----- From: Nirmala Storey LPN Sent: 01/26/2022 9:15 AM EDT To: Little Carrillo Subject: New Referral Dr Grimes and Dr Alfonso have suggested patient see Dr Rasheed for left shoulder pain. Thank you! Darrion [...] bed with current PAP mask. - Ipratropium [place] Plane (ATROVENT) 0.03 % nasal spray Use 2 Sprays in the nose every 12 hours. - metroNIDAZOLE (METROGEL) 0.75 % Topical Gel Apply to affected area twice daily. - [place]-3 Fatty Acids (FISH OIL) 500 mg cap Take 1 capsule by mouth once daily. - blood sugar diagnostic (BLOOD GLUCOSE TEST) test strip Test blood sugar(s) 1 times daily. Dx: Type 2 DM - Controlled E11.9 Insulin: Yes - Lancets lancets Test blood sugar(s) 1 times daily. Dx: Type 2 DM - Controlled E11.9 Insulin: No - Rimfhnkp-Gj-Een-Fe- FA ( FORMULA) ORAL Tab Take 1 [...] 05/06/2009 01/23/2010 Routine general medical examination at [facility]*01/23/2010 12/06/2012 Class: Chronic Routine gynecological examination [Z01.419] 01/23/2010 02/22/2014 Class: Chronic Morbid Obesity [E66.01] 01/23/2010 Lumbar Disc Disorder [M51.9] 02/16/2010 Routine general medical examination at [facility]*12/06/2012 02/22/2014 Anxiety [F41.9] 06/07/2014 Type 2 diabetes mellitus with microalbuminuria,*0 07/04/2018 Fatty liver [K76.0] 07/21/2018 LETITIA (obstructive sleep apnea) [G47.33] 07/21/2018 Microalbuminuria [R80.9] 09/30/2018 Obesity, Class III, BMI >= 40 [E66.01] 11/26/2019 Prolonged Q-T interval on ECG [R94.31] 03/31/2020 Encounter Status:Closed by DARRION BARAHONA on 01/30/22 [facility] Laboratory - Microbiology an d Antimicrobial susceptibilityon 11-21-2021 SARS-CoV-2 (COVID-19) RNA ALLYSON+probe Ql (Unsp spec) Not detected [facility] Work Phone: Office Visit: Jojo Removal, possible other optionson 09-09-2017 Documentation of current medications (procedure) Done Invalid Interpretation Code [facility] Fall risk assessment No Invalid Interpretation Code [facility] Tobacco smoking status NHIS Never Invalid Interpretation Code [facility] Tobacco use CPHS Never smoker Invalid Interpretation Code [facility] Office Visit: Spine Visit- L ow back pain BWCon 09-05-2017 Documentation of current medications (procedure) Done Invalid Interpretation Code [email or web address] Work Phone: Office Visit: Spine Visit- [...] Cyto stain Normal Invalid Interpretation Code [facility] Vital Signs Date Time Vital Sign Value Performing Clinician Facility 07-15-2025 09:26-0400 Body mass index (BMI) [Ratio] 42.13 kg/m2 Lubna Suppmaría POULTRY PATHOLOGIST.MAINTAINER OPERATOR Work Phone: [facility] 07-15-2025 09:26-0400 Body temperature 97.59 [degF] Lubna Suppmaría POULTRY PATHOLOGIST.MAINTAINER OPERATOR Work Phone: [facility] 07-15-2025 09:26-0400 Body weight 122.02 kg Lubna Suppmaraí POULTRY PATHOLOGIST.MAINTAINER OPERATOR Work Phone: [facility] 07-15-2025 09:26-0400 Diastolic blood pressure 76 mm[Hg] Lubna Suppmaría POULTRY PATHOLOGIST.MAINTAINER OPERATOR Work Phone: [facility] 07-15-2025 09:26-0400 Heart rate 73 /min Lubna De La Garza POULTRY PATHOLOGIST.MAINTAINER OPERATOR Work Phone: [facility] 07-15-2025 09:26-0400 SaO2% (BldA) [Mass fraction] 98 % Lubna Suppmaría POULTRY PATHOLOGIST.MAINTAINER OPERATOR Work Phone: 3(217)747-063140 [place] [address] 07-15-2025 09:26-0400 Systolic blood pressure 128 mm[Hg] Lubna Villalobosmaría ROSEMAINTAINER OPERATOR Work Phone: 3(395)849-281740 [place] [address] 07-07-2025 07:15-0400 SaO2% (BldA) [Mass fraction] 96 % Dr. Ivette Grimes MD Work Phone: 5(402)617-493445 [place] [address] 07-07-2025 06:00-0400 Diastolic blood pressure 74 mm[Hg] Dr. Ivette Grimes MD Work Phone: 1(715)630-837845 [place] [address] 07-07-2025 06:00-0400 Heart rate 61 /min Dr. Ivette Grimes MD Work Phone: 4(281)922-253345 [place] [address] 07-07-2025 06:00-0400 Respiratory rate 18 /min Dr. Ivette Grimes MD Work Phone: 9(330)381-097545 [place] [address] 07-07-2025 06:00-0400 Systolic blood pressure 117 mm[Hg] Dr. Ivette Grimes MD Work Phone: 3(523)362-822645 [place] [address] 07-07-2025 05:33-0400 Body mass index (BMI) [Ratio] 44.1 kg/m2 Dr. Ivette Grimes MD Work Phone: 1(912)202-434345 [place] [address] 07-07-2025 05:33-0400 Body weight 127.[address] Ivette Grimes MD Work Phone: 2(587)535-439845 [place] [address] 07-07-2025 04:00-0400 Body temperature 98.1 [degF] Dr. Ivette Grimes MD Work Phone: 7(922)107-092745 [place] [address] 07-06-2025 10:30-0400 Body height 170.[address] Ivette Grimes MD Work Phone: 2(279)702-664645 [place] [address] 07-05-2025 23:35-0400 Body height 170.[address] Ivette Grimes MD Work Phone: 5(545)051-546845 [place] [address] 07-05-2025 23:35-0400 Body mass index (BMI) [Ratio] 44.7 kg/m2 Dr. Ivette Grimes MD Work Phone: 5(651)077-410045 [place] [address] 07-05-2025 23:35-0400 Body weight 129.[address] Ivette Grimes MD Work Phone: 1(165)442-767345 [place] [address] 07-05-2025 23:00-0400 Diastolic blood pressure 50 mm[Hg] Dr. Ivetet Grimes MD Work Phone: 2(524)002-765345 [place] [address] 07-05-2025 23:00-0400 Heart rate 75 /min Dr. Ivette Grimes MD Work Phone: 7(666)433-842045 [place] [address] 07-05-2025 23:00-0400 Respiratory rate 27 /min Dr. Ivette Grimes MD Work Phone: 9(065)061-978445 [place] [address] 07-05-2025 23:00-0400 SaO2% (BldA) [Mass fraction] 94 % Dr. Ivette Grimes MD Work Phone: 1(968)465-804945 [place] [address] 07-05-2025 23:00-0400 Systolic blood pressure 102 mm[Hg] Dr. Ivette Grimes MD Work Phone: 4(391)178-604845 [place] [address] 07-05-2025 22:00-0400 Body temperature 100.3 [degF] Dr. Ivette Grimes MD Work Phone: 3(841)978-742645 [place] [address] 06-23-2025 09:45-0400 Body temperature 96.6 [degF] Dr. Ivette Grimes MD Work Phone: 1(677)928-127145 [place] [address] 06-23-2025 09:45-0400 Diastolic blood pressure 60 mm[Hg] Dr. Ivette Grimes MD Work Phone: 2(199)993-364845 [place] [address] 06-23-2025 09:45-0400 Heart rate 65 /min Dr. Ivette Grimes MD Work Phone: 2(129)295-096445 [place] [address] 06-23-2025 09:45-0400 Respiratory rate 16 /min Dr. Ivette Grimes MD Work Phone: 1(318)522-012845 [place] [address] 06-23-2025 09:45-0400 SaO2% (BldA) [Mass fraction] 95 % Dr. Ivette Grimes MD Work Phone: 7(229)129-891445 [place] [address] 06-23-2025 09:45-0400 Systolic blood pressure 112 mm[Hg] Dr. Ivette Grimes MD Work Phone: [facility] 06-23-2025 09:15-0400 Inhaled oxygen flow rate 2 L/min Dr. Ivette Grimes MD Work Phone: [facility] 06-23-2025 06:40-0400 Body height 170.[address] Ivette Grimes MD Work Phone: [facility] 06-23-2025 06:40-0400 Body mass index (BMI) [Ratio] 43.4 kg/m2 Dr. Ivette Grimes MD Work Phone: [facility] 06-23-2025 06:40-0400 Body weight [address] Ivette Grimes MD Work Phone: [facility] 06-07-2025 18:27-0400 Body mass index (BMI) [Ratio] 44.26 kg/m2 Ivette Grimes MD Work Phone: [facility] 06-07-2025 18:27-0400 Body weight 128.19 kg Ivette Grimes MD Work Phone: [facility] 06-07-2025 18:27-0400 Diastolic blood pressure 80 mm[Hg] Ivette Grimes MD Work Phone: [facility] 06-07-2025 18:27-0400 Heart rate 78 /min Ivette Grimes MD Work Phone: [facility] 06-07-2025 18:27-0400 SaO2% (BldA) [Mass fraction] 98 % Ivette Grimes MD Work Phone: [facility] 06-07-2025 18:27-0400 Systolic blood pressure 132 mm[Hg] Ivette Grimes MD Work Phone: [facility] 05-06-2025 10:04-0400 Body height 170.[address] Ivette Grimes MD Work Phone: [facility] 05-06-2025 10:04-0400 Body mass index (BMI) [Ratio] 43 kg/m2 Dr. Ivette Grimes MD Work Phone: [facility] 05-06-2025 10:04-0400 Body weight 124.[address] Ivette Grimes MD Work Phone: [facility] 03-22-2025 09:08-0400 Body height 170.[address] Ivette Grimes MD Work Phone: [facility] 01-22-2025 15:43-0400 Body mass index (BMI) [Ratio] 44.17 kg/m2 Ivette Grimes MD Work Phone: [facility] 01-22-2025 15:43-0400 Body weight 127.91 kg Ivette Grimes MD Work Phone: [facility] 01-22-2025 15:43-0400 Diastolic blood pressure 72 mm[Hg] Ivette Grimes MD Work Phone: [facility] 01-22-2025 15:43-0400 Heart rate 77 /min Ivette Grimes MD Work Phone: [facility] 01-22-2025 15:43-0400 SaO2% (BldA) [Mass fraction] 97 % Ivette Grimes MD Work Phone: [facility] 01-22-2025 15:43-0400 Systolic blood pressure 122 mm[Hg] Ivette Grimes MD Work Phone: [facility] 12-11-2024 11:08-0500 Body mass index (BMI) [Ratio] 43.4 kg/m2 Jenni Jain POULTRY PATHOLOGIST.MAINTAINER OPERATOR Work Phone: [facility] 12-11-2024 11:08-0500 Body temperature 97.81 [degF] Jenni Jain POULTRY PATHOLOGIST.MAINTAINER OPERATOR Work Phone: [facility] 12-11-2024 11:08-0500 Body weight 125.7 kg Jenni Jain POULTRY PATHOLOGIST.MAINTAINER OPERATOR Work Phone: [facility] 12-11-2024 11:08-0500 Diastolic blood pressure 74 mm[Hg] Jenni Jain POULTRY PATHOLOGIST.MAINTAINER OPERATOR Work Phone: [facility] 12-11-2024 11:08-0500 Heart rate 72 /min Jennifrank Albaradohof POULTRY PATHOLOGIST.MAINTAINER OPERATOR Work Phone: [facility] 12-11-2024 11:08-0500 Respiratory rate 16 /min Jenni Albaradohof POULTRY PATHOLOGIST.MAINTAINER OPERATOR Work Phone: [facility] 12-11-2024 11:08-0500 SaO2% (BldA) [Mass fraction] 99 % Jennifrank Albaradohof POULTRY PATHOLOGIST.MAINTAINER OPERATOR Work Phone: [facility] 12-11-2024 11:08-0500 Systolic blood pressure 138 mm[Hg] Jenni Albaradohof POULTRY PATHOLOGIST.MAINTAINER OPERATOR Work Phone: [facility] 11-11-2024 12:34-0500 Heart rate 74 /min Dr. Ivette Grimes MD Work Phone: 1(425)382-361845 [place] [address] 11-11-2024 12:34-0500 Respiratory rate 20 /min Dr. Ivette Grimes MD Work Phone: 0(838)467-759845 [place] [address] 11-11-2024 12:34-0500 SaO2% (BldA) [Mass fraction] 100 % Dr. Ivette Grimes MD Work Phone: 5(290)577-129445 [place] [address] 11-11-2024 11:00-0500 Diastolic blood pressure 60 mm[Hg] Dr. Ivette Grimes MD Work Phone: 4(400)919-219945 [place] [address] 11-11-2024 11:00-0500 Systolic blood pressure 108 mm[Hg] Dr. Ivette Grimes MD Work Phone: 7(007)940-686945 [place] [address] 11-11-2024 05:55-0500 Body height 170.[address] Ivette Grimes MD Work Phone: 3(537)769-123945 [place] [address] 11-11-2024 05:55-0500 Body mass index (BMI) [Ratio] 45.2 kg/m2 Dr. Ivette Grimes MD Work Phone: 9(421)455-950645 [place] [address] 11-11-2024 05:55-0500 Body temperature 97.5 [degF] Dr. Ivette Grimes MD Work Phone: 7(597)776-454330 [address] 11-11-2024 05:55-0500 Body weight [address] Ivette Grimes MD Work Phone: 8(852)161-501345 [place] [address] 10-16-2024 21:50-0500 Body temperature 98 [degF] Dr. Ivette Grimes MD Work Phone: 9(113)471-425745 [place] [address] 10-16-2024 21:50-0500 Diastolic blood pressure 72 mm[Hg] Dr. Ivette Grimes MD Work Phone: 6(274)030-057045 [place] [address] 10-16-2024 21:50-0500 Heart rate 60 /min Dr. Ivette Grimes MD Work Phone: 3(569)031-258045 [place] [address] 10-16-2024 21:50-0500 Respiratory rate 16 /min Dr. Ivette Grimes MD Work Phone: 5(282)310-960845 [place] [address] 10-16-2024 21:50-0500 SaO2% (BldA) [Mass fraction] 95 % Dr. Ivette Grimes MD Work Phone: 3(429)054-282345 [place] [address] 10-16-2024 21:50-0500 Systolic blood pressure 137 mm[Hg] Dr. Ivette Grimes MD Work Phone: 3(651)115-797945 [place] [address] 10-16-2024 20:23-0500 Body mass index (BMI) [Ratio] 43 kg/m2 Dr. Ivette Grimes MD Work Phone: 9(305)233-749845 [place] [address] 10-16-2024 20:23-0500 Body weight 124.[address] Ivette Grimes MD Work Phone: 8(788)972-617245 [place] [address] 09-03-2024 12:51-0400 Body height 170.2 cm Fatuma IRENE-C Work Phone: 5(777)574-957240 [place] [address] 09-03-2024 12:51-0400 Body mass index (BMI) [Ratio] 43.8 kg/m2 Fatuma IRENE-C Work Phone: 8(998)939-984240 [place] [address] 09-03-2024 12:51-0400 Body weight 126.85 kg Fatuma IRENE-Mireya Work Phone: 8(701)155-929140 [place] [address] 09-03-2024 12:51-0400 Diastolic blood pressure 71 mm[Hg] Fatuma Robertser PA-C Work Phone: [facility] 09-03-2024 12:51-0400 Heart rate 67 /min Fatuma Robertser PA-C Work Phone: [facility] 09-03-2024 12:51-0400 SaO2% (BldA) [Mass fraction] 97 % Fatuma Robertser PA-C Work Phone: [facility] 09-03-2024 12:51-0400 Systolic blood pressure 153 mm[Hg] Fatuma Robertser PA-C Work Phone: [facility] 08-05-2024 08:04-0400 Body mass index (BMI) [Ratio] 42.81 kg/m2 Ivette Grimes MD Work Phone: [facility] 08-05-2024 08:04-0400 Body weight 131.5 kg Ivette Grimes MD Work Phone: [facility] 08-05-2024 08:04-0400 Diastolic blood pressure 62 mm[Hg] Ivette Grimes MD Work Phone: [facility] 08-05-2024 08:04-0400 Heart rate 56 /min Ivette Grimes MD Work Phone: [facility] 08-05-2024 08:04-0400 SaO2% (BldA) [Mass fraction] 96 % Ivette Grimes MD Work Phone: [facility] 08-05-2024 08:04-0400 Systolic blood pressure 114 mm[Hg] Ivette Grimes MD Work Phone: [facility] 07-03-2024 15:29-0400 Body mass index (BMI) [Ratio] 41.94 kg/m2 Ivette Grimes MD Work Phone: [facility] 07-03-2024 15:29-0400 Body weight 128.82 kg Ivette Grimes MD Work Phone: [facility] 07-03-2024 15:29-0400 Diastolic blood pressure 82 mm[Hg] Ivette Grimes MD Work Phone: [facility] 07-03-2024 15:29-0400 Heart rate 78 /min Ivette Grimes MD Work Phone: [facility] 07-03-2024 15:29-0400 SaO2% (BldA) [Mass fraction] 98 % Ivette Grimes MD Work Phone: [facility] 07-03-2024 15:29-0400 Systolic blood pressure 152 mm[Hg] Ivette Grimes MD Work Phone: [facility] 04-02-2024 12:46-0400 Body height 175.3 cm Fatuma Robertser PA-C Work Phone: [facility] 04-02-2024 12:46-0400 Body mass index (BMI) [Ratio] 41.02 kg/m2 Fatuma Queener PA-C Work Phone: [facility] 04-02-2024 12:46-0400 Body weight 126 kg Fatuma Queener PA-C Work Phone: [facility] 04-02-2024 12:46-0400 Diastolic blood pressure 77 mm[Hg] Fatuma Robertser PA-C Work Phone: [facility] 04-02-2024 12:46-0400 Heart rate 59 /min Fatuma Queener PA-C Work Phone: [facility] 04-02-2024 12:46-0400 SaO2% (BldA) [Mass fraction] 99 % Fatuma Queener PA-C Work Phone: [facility] 04-02-2024 12:46-0400 Systolic blood pressure 135 mm[Hg] Fatuma Robertser PA-C Work Phone: [facility] 02-04-2024 04:03-0400 Body temperature 98 [degF] Dr. Ivette Grimes Work Phone: [facility] 02-04-2024 04:03-0400 Diastolic blood pressure 56 mm[Hg] Dr. Ivette Grimes Work Phone: [facility] 02-04-2024 04:03-0400 Heart rate 59 /min Dr. Ivette Grimes Work Phone: [facility] 02-04-2024 04:03-0400 Respiratory rate 16 /min Dr. Ivette Grimes Work Phone: [facility] 02-04-2024 04:03-0400 SaO2% (BldA) [Mass fraction] 100 % Dr. Ivette Grimes Work Phone: [facility] 02-04-2024 04:03-0400 Systolic blood pressure 107 mm[Hg] Dr. Ivette Grimes Work Phone: [facility] 02-04-2024 01:12-0400 Body height 170.[address] Ivette Grimes Work Phone: 6(132)893-252394 [place] [address] 02-04-2024 01:12-0400 Body mass index (BMI) [Ratio] 43 kg/m2 Dr. Ivette Grimes Work Phone: [facility] 02-04-2024 01:12-0400 Body weight 124.[address] Ivette Grimes Work Phone: [facility] 12-26-2023 10:10-0500 Body height 170.2 cm Fatuma Beckford PA-C Work Phone: [facility] 12-26-2023 10:10-0500 Body weight 123.35 kg Fatuma Robertser PA-C Work Phone: [facility] 12-26-2023 10:10-0500 Diastolic blood pressure 62 mm[Hg] Fatuma Robertser PA-C Work Phone: [facility] 12-26-2023 10:10-0500 Heart rate 68 /min Fatuma Robertser PA-C Work Phone: [facility] 12-26-2023 10:10-0500 Systolic blood pressure 118 mm[Hg] Fatuma Robertser PA-C Work Phone: [facility] 12-10-2023 05:52-0500 Body height 170.[address] Ivette Grimes Work Phone: [facility] 12-10-2023 05:52-0500 Body mass index (BMI) [Ratio] 42.3 kg/m2 Dr. Ivette Grimes Work Phone: [facility] 12-10-2023 05:52-0500 Body temperature 98 [degF] Dr. Ivette Grimes Work Phone: 8(028)543-853094 [place] [address] 12-10-2023 05:52-0500 Body weight 122.[address] Ivette Grimes Work Phone: 0(733)662-600245 [place] [address] 12-10-2023 05:52-0500 Diastolic blood pressure 61 mm[Hg] Dr. Ivette Grimes Work Phone: 6(954)898-647894 [place] [address] 12-10-2023 05:52-0500 Heart rate 68 /min Dr. Ivette Grimes Work Phone: 2(798)964-144494 [place] [address] 12-10-2023 05:52-0500 Respiratory rate 16 /min Dr. Ivette Grimes Work Phone: 2(536)302-216994 [place] [address] 12-10-2023 05:52-0500 SaO2% (BldA) [Mass fraction] 98 % Dr. Ivette Grimes Work Phone: [facility] 12-10-2023 05:52-0500 Systolic blood pressure 108 mm[Hg] Dr. Ivette Grimes Work Phone: [facility] 12-09-2023 17:15-0500 Body weight 122.92 kg Ivette Grimes MD Work Phone: [facility] 12-09-2023 17:15-0500 Diastolic blood pressure 62 mm[Hg] Ivette Grimes MD Work Phone: [facility] 12-09-2023 17:15-0500 Heart rate 60 /min Ivette Grimes MD Work Phone: [facility] 12-09-2023 17:15-0500 SaO2% (BldA) [Mass fraction] 97 % Ivette Grimes MD Work Phone: [facility] 12-09-2023 17:15-0500 Systolic blood pressure 124 mm[Hg] Ivette Grimes MD Work Phone: [facility] 10-27-2023 15:06-0500 Body height 170.18 cm Self Referred [facility] 10-27-2023 15:06-0500 Body mass index (BMI) [Ratio] 43.9 kg/m2 Self Referred [facility] 10-27-2023 15:06-0500 Body temperature 97 [degF] Self Referred [facility] 10-27-2023 15:06-0500 Body weight 127.45 kg Self Referred [facility] 10-27-2023 15:06-0500 Diastolic blood pressure 90 mm[Hg] Self Referred [facility] 10-27-2023 15:06-0500 Heart rate 80 /min Self Referred [facility] 10-27-2023 15:06-0500 Respiratory rate 16 /min Self Referred [facility] 10-27-2023 15:06-0500 SaO2% (BldA) [Mass fraction] 98 % Self Referred [facility] 10-27-2023 15:06-0500 Systolic blood pressure 173 mm[Hg] Self Referred [facility] 08-07-2023 12:17-0400 Body temperature 97.5 [degF] Self Referred [facility] 08-07-2023 12:17-0400 Diastolic blood pressure 75 mm[Hg] Self Referred [facility] 08-07-2023 12:17-0400 Heart rate 53 /min Self Referred [facility] 08-07-2023 12:17-0400 Respiratory rate 14 /min Self Referred [facility] 08-07-2023 12:17-0400 SaO2% (BldA) [Mass fraction] 99 % Self Referred [facility] 08-07-2023 12:17-0400 Systolic blood pressure 119 mm[Hg] Self Referred [facility] 08-07-2023 11:00-0400 Body mass index (BMI) [Ratio] 47.2 kg/m2 Self Referred [facility] 08-05-2023 17:16-0400 Body height 170.18 cm Self Referred [facility] 08-05-2023 17:16-0400 Body weight 136.8 kg Self Referred [facility] 08-05-2023 13:00-0400 Body temperature 97.4 [degF] Dr. Ivette Grimes Work Phone: [facility] 08-05-2023 13:00-0400 Diastolic blood pressure 76 mm[Hg] Dr. Ivette Grimes Work Phone: 1(991)617-605394 [place] [address] 08-05-2023 13:00-0400 Heart rate 58 /min Dr. Ivette Grimes Work Phone: 8(495)439-251594 [place] [address] 08-05-2023 13:00-0400 Respiratory rate 14 /min Dr. Ivette Grimes Work Phone: 0(271)115-599445 [place] [address] 08-05-2023 13:00-0400 SaO2% (BldA) [Mass fraction] 96 % Dr. Ivette Grimes Work Phone: 9(241)328-075094 [place] [address] 08-05-2023 13:00-0400 Systolic blood pressure 156 mm[Hg] Dr. Ivette Grimes Work Phone: 7(369)340-159845 [place] [address] 08-05-2023 11:33-0400 Body mass index (BMI) [Ratio] 47.2 kg/m2 Dr. Ivette Grimes Work Phone: [facility] 08-05-2023 09:51-0400 Body weight 136.[address] Ivette Grimes Work Phone: [facility] 08-05-2023 09:40-0400 Body height 170.[address] Ivette Grimes Work Phone: [facility] 06-07-2023 15:01-0400 Diastolic blood pressure 76 mm[Hg] Ivette Price Jr., MD Work Phone: [facility] 06-07-2023 15:01-0400 Heart rate 75 /min Ivette Price Jr., MD Work Phone: [facility] 06-07-2023 15:01-0400 Respiratory rate 16 /min Ivette Price Jr., MD Work Phone: [facility] 06-07-2023 15:01-0400 SaO2% (BldA) [Mass fraction] 97 % Ivette Price Jr., MD Work Phone: [facility] 06-07-2023 15:01-0400 Systolic blood pressure 138 mm[Hg] Ivette Price Jr., MD Work Phone: [facility] 06-06-2023 09:39-0400 Body weight 132 kg Ivette Grimes MD Work Phone: [facility] 06-06-2023 09:39-0400 Diastolic blood pressure 81 mm[Hg] Ivette Grimes MD Work Phone: [facility] 06-06-2023 09:39-0400 Heart rate 51 /min Ivette Grimes MD Work Phone: [facility] 06-06-2023 09:39-0400 SaO2% (BldA) [Mass fraction] 98 % Ivette Grimes MD Work Phone: [facility] 06-06-2023 09:39-0400 Systolic blood pressure 129 mm[Hg] Ivette Grimes MD Work Phone: [facility] 05-20-2023 22:47-0400 Diastolic blood pressure 88 mm[Hg] Dr. Ivette Grimes Work Phone: [facility] 05-20-2023 22:47-0400 Heart rate 78 /min Dr. Ivette Grimes Work Phone: [facility] 05-20-2023 22:47-0400 Respiratory rate 18 /min Dr. Ivette Grimes Work Phone: [facility] 05-20-2023 22:47-0400 SaO2% (BldA) [Mass fraction] 100 % Dr. Ivette Grimes Work Phone: [facility] 05-20-2023 22:47-0400 Systolic blood pressure 134 mm[Hg] Dr. Ivette Grimes Work Phone: [facility] 07-17-2023 21:28-0400 Body height 170.[address] Ivette Grimes Work Phone: [facility] 05-20-2023 21:28-0400 Body mass index (BMI) [Ratio] 45.4 kg/m2 Dr. Ivette Grimes Work Phone: [facility] 05-20-2023 21:28-0400 Body temperature 97.5 [degF] Dr. Ivette Grimes Work Phone: [facility] 05-20-2023 21:28-0400 Body weight 131.[address] Ivette Grimes Work Phone: [facility] 05-17-2023 10:04-0400 Body height 170.2 cm Fatuma Robertser PA-C Work Phone: [facility] 05-17-2023 10:04-0400 Body weight 132 kg Fatuma Robertser PA-C Work Phone: [facility] 05-17-2023 10:04-0400 Diastolic blood pressure 70 mm[Hg] Fatuma Robertser PA-C Work Phone: [facility] 05-17-2023 10:04-0400 Heart rate 68 /min Fatuma Robertser PA-C Work Phone: [facility] 05-17-2023 10:04-0400 SaO2% (BldA) [Mass fraction] 97 % Fatuma Queener PA-C Work Phone: [facility] 05-17-2023 10:04-0400 Systolic blood pressure 123 mm[Hg] Fatuma Robertser PA-C Work Phone: [facility] 03-05-2023 12:35-0400 Body temperature 97.81 [degF] Fatuma Robertser PA-C Work Phone: [facility] 03-05-2023 12:35-0400 Body weight 130.09 kg Fatuma Queener PA-C Work Phone: [facility] 03-05-2023 12:35-0400 Diastolic blood pressure 76 mm[Hg] Fatuma Beckford PA-C Work Phone: [facility] 03-05-2023 12:35-0400 Heart rate 61 /min Fatuma Beckford PA-C Work Phone: [facility] 03-05-2023 12:35-0400 Respiratory rate 16 /min Fatuma Beckford PA-C Work Phone: [facility] 03-05-2023 12:35-0400 SaO2% (BldA) [Mass fraction] 98 % Fatuma Beckford PA-C Work Phone: [facility] 03-05-2023 12:35-0400 Systolic blood pressure 145 mm[Hg] Fatuma Beckford PA-C Work Phone: [facility] 03-05-2023 08:56-0400 Body height 170.2 cm Galina Camacho MD Work Phone: [facility] 03-05-2023 08:56-0400 Body weight 130.18 kg Galina Camacho MD Work Phone: [facility] 03-05-2023 08:56-0400 Diastolic blood pressure 82 mm[Hg] Galina Camacho MD Work Phone: [facility] 03-05-2023 08:56-0400 Systolic blood pressure 122 mm[Hg] Galina Camacho MD Work Phone: [facility] 02-28-2023 14:20-0400 Body weight 131.54 kg Ivette Grimes MD Work Phone: [facility] 02-28-2023 14:20-0400 Diastolic blood pressure 72 mm[Hg] Ivette Grimes MD Work Phone: [facility] 02-28-2023 14:20-0400 Heart rate 79 /min Ivette Grimes MD Work Phone: [facility] 02-28-2023 14:20-0400 SaO2% (BldA) [Mass fraction] 97 % Ivette Grimes MD Work Phone: [facility] 02-28-2023 14:20-0400 Systolic blood pressure 138 mm[Hg] Ivette Grimes MD Work Phone: [facility] 01-31-2023 09:21-0400 Body weight 130.18 kg Ivette Grimes MD Work Phone: [facility] 01-31-2023 09:21-0400 Diastolic blood pressure 82 mm[Hg] Ivette Grimes MD Work Phone: [facility] 01-31-2023 09:21-0400 Heart rate 65 /min Ivette Grimes MD Work Phone: [facility] 01-31-2023 09:21-0400 SaO2% (BldA) [Mass fraction] 98 % Ivette Grimes MD Work Phone: [facility] 01-31-2023 09:21-0400 Systolic blood pressure 120 mm[Hg] Ivette Grimes MD Work Phone: [facility] 01-24-2023 10:23-0400 Heart rate 64 /min Elle Rasheed MD Work Phone: [facility] 01-24-2023 10:23-0400 Respiratory rate 16 /min Elle Rasheed MD Work Phone: [facility] 01-24-2023 10:23-0400 SaO2% (BldA) [Mass fraction] 98 % Elle Rasheed MD Work Phone: [facility] 01-17-2023 11:21-0400 Body height 170.2 cm Ivette Grimes MD Work Phone: [facility] 01-17-2023 11:21-0400 Body weight 128.82 kg Ivette Grimes MD Work Phone: [facility] 01-17-2023 11:21-0400 Diastolic blood pressure 84 mm[Hg] Ivette Grimes MD Work Phone: [facility] 01-17-2023 11:21-0400 Heart rate 70 /min Ivette Grimes MD Work Phone: [facility] 01-17-2023 11:21-0400 SaO2% (BldA) [Mass fraction] 98 % Ivette Grimes MD Work Phone: [facility] 01-17-2023 11:21-0400 Systolic blood pressure 148 mm[Hg] Ivette Grimes MD Work Phone: [facility] 01-04-2023 11:30-0500 Body weight 128.37 kg Ivette Grimes MD Work Phone: [facility] 01-04-2023 11:30-0500 Diastolic blood pressure 78 mm[Hg] Ivette Grimes MD Work Phone: [facility] 01-04-2023 11:30-0500 Heart rate 85 /min Ivette Grimes MD Work Phone: [facility] 01-04-2023 11:30-0500 SaO2% (BldA) [Mass fraction] 97 % Ivette Grimes MD Work Phone: [facility] 01-04-2023 11:30-0500 Systolic blood pressure 132 mm[Hg] Ivette Grimes MD Work Phone: [facility] 12-28-2022 14:55-0500 Body height 170.[address] Ivette Grimes Work Phone: [facility] 12-28-2022 14:55-0500 Body mass index (BMI) [Ratio] 44.6 kg/m2 Dr. Ivette Grimes Work Phone: [facility] 12-28-2022 14:55-0500 Body weight 129.[address] Ivette Grimes Work Phone: [facility] 12-28-2022 14:55-0500 Diastolic blood pressure 79 mm[Hg] Dr. Ivette Grimes Work Phone: [facility] 12-28-2022 14:55-0500 Heart rate 71 /min Dr. Ivette Grimes Work Phone: [facility] 12-28-2022 14:55-0500 Respiratory rate 20 /min Dr. Ivette Grimes Work Phone: [facility] 12-28-2022 14:55-0500 Systolic blood pressure 130 mm[Hg] Dr. Ivette Grimes Work Phone: [facility] 12-26-2022 11:10-0500 Body height 170.2 cm Ivette Grimes MD Work Phone: [facility] 12-26-2022 11:10-0500 Body weight 128.37 kg Ivette Grimes MD Work Phone: [facility] 12-26-2022 11:10-0500 Diastolic blood pressure 74 mm[Hg] Ivette Grimes MD Work Phone: [facility] 12-26-2022 11:10-0500 Heart rate 83 /min Ivette Grimes MD Work Phone: [facility] 12-26-2022 11:10-0500 SaO2% (BldA) [Mass fraction] 97 % Ivette Grimes MD Work Phone: [facility] 12-26-2022 11:10-0500 Systolic blood pressure 140 mm[Hg] Ivette Grimes MD Work Phone: [facility] 12-14-2022 09:16-0500 Body height 170.2 cm Ivette Grimes MD Work Phone: [facility] 12-14-2022 09:16-0500 Body weight 125.65 kg Ivette Grimes MD Work Phone: [facility] 12-14-2022 09:16-0500 Diastolic blood pressure 98 mm[Hg] Ivette Grimes MD Work Phone: [facility] 12-14-2022 09:16-0500 Heart rate 75 /min Ivette Grimes MD Work Phone: [facility] 12-14-2022 09:16-0500 SaO2% (BldA) [Mass fraction] 98 % Ivette Grimes MD Work Phone: [facility] 12-14-2022 09:16-0500 Systolic blood pressure 160 mm[Hg] Ivette Grimes MD Work Phone: [facility] 12-07-2022 16:34-0500 Body temperature 98.8 [degF] Ivette Price Jr., MD Work Phone: [facility] 12-07-2022 16:34-0500 Body weight 126.01 kg Ivette Price Jr., MD Work Phone: [facility] 12-07-2022 16:34-0500 Diastolic blood pressure 94 mm[Hg] Ivette Price Jr., MD Work Phone: [facility] 12-07-2022 16:34-0500 Heart rate 72 /min Ivette Price Jr., MD Work Phone: [facility] 12-07-2022 16:34-0500 Respiratory rate 20 /min Ivette Price Jr., MD Work Phone: [facility] 12-07-2022 16:34-0500 SaO2% (BldA) [Mass fraction] 97 % Ivette Price Jr., MD Work Phone: [facility] 12-07-2022 16:34-0500 Systolic blood pressure 160 mm[Hg] Ivette Price Jr., MD Work Phone: [facility] 12-06-2022 08:07-0500 Body mass index (BMI) [Ratio] 43.4 kg/m2 Dr. Ivette Grimes Work Phone: [facility] 12-06-2022 08:07-0500 Body temperature 97.7 [degF] Dr. Ivette Grimes Work Phone: [facility] 12-06-2022 08:07-0500 Body weight 125.[address] Ivette Grimes Work Phone: [facility] 12-06-2022 08:07-0500 Diastolic blood pressure 79 mm[Hg] Dr. Ivette Grimes Work Phone: [facility] 12-06-2022 08:07-0500 Heart rate 70 /min Dr. Ivette Grimes Work Phone: [facility] 12-06-2022 08:07-0500 Respiratory rate 18 /min Dr. Ivette Grimes Work Phone: 0(351)606-335145 [place] [address] 12-06-2022 08:07-0500 SaO2% (BldA) [Mass fraction] 98 % Dr. Ivette Grimes Work Phone: 3(624)123-633745 [place] [address] 12-06-2022 08:07-0500 Systolic blood pressure 141 mm[Hg] Dr. Ivette Grimes Work Phone: 3(544)467-163645 [place] [address] 12-03-2022 20:26-0500 Heart rate 75 /min Dr. Ivette Grimes Work Phone: 6(121)315-660145 [place] [address] 12-03-2022 20:26-0500 Respiratory rate 18 /min Dr. Ivette Grimes Work Phone: 2(004)410-376645 [place] [address] 12-03-2022 20:26-0500 SaO2% (BldA) [Mass fraction] 96 % Dr. Ivette Grimes Work Phone: 6(968)536-290545 [place] [address] 12-03-2022 18:25-0500 Body mass index (BMI) [Ratio] 43.4 kg/m2 Dr. Ivette Grimes Work Phone: 8(289)657-466945 [place] [address] 12-03-2022 18:25-0500 Body temperature 97.8 [degF] Dr. Ivette Grimes Work Phone: 6(418)927-390145 [place] [address] 12-03-2022 18:25-0500 Body weight 125.[address] Ivette Grimes Work Phone: 1(880)234-190145 [place] [address] 12-03-2022 18:25-0500 Diastolic blood pressure 91 mm[Hg] Dr. Ivette Grimes Work Phone: 7(291)494-950745 [place] [address] 12-03-2022 18:25-0500 Systolic blood pressure 176 mm[Hg] Dr. Ivette Grimes Work Phone: 6(467)482-468945 [place] [address] 11-27-2022 14:36-0500 Body height 170.[address] Ivette Grimes Work Phone: 8(238)340-408345 [place] [address] 11-27-2022 14:36-0500 Body mass index (BMI) [Ratio] 42.7 kg/m2 Dr. Ivette Grimes Work Phone: 8(437)578-560345 [place] [address] 11-27-2022 14:36-0500 Body temperature 98.1 [degF] Dr. Ivette Grimes Work Phone: [facility] 11-27-2022 14:36-0500 Body weight 123.[address] Ivette Grimes Work Phone: [facility] 11-27-2022 14:36-0500 Diastolic blood pressure 81 mm[Hg] Dr. Ivette Grimes Work Phone: [facility] 11-27-2022 14:36-0500 Heart rate 70 /min Dr. Ivette Grimes Work Phone: 8(394)937-223730 [address] 11-27-2022 14:36-0500 Respiratory rate 15 /min Dr. Ivette Grimes Work Phone: [facility] 11-27-2022 14:36-0500 SaO2% (BldA) [Mass fraction] 99 % Dr. Ivette Grimes Work Phone: [facility] 11-27-2022 14:36-0500 Systolic blood pressure 154 mm[Hg] Dr. Ivette Grimes Work Phone: [facility] 11-27-2022 13:51-0500 Body height 170.2 cm Ivette Grimes MD Work Phone: [facility] 11-27-2022 13:51-0500 Body weight 123.83 kg Ivette Grimes MD Work Phone: [facility] 11-27-2022 13:51-0500 Diastolic blood pressure 84 mm[Hg] Ivette Grimes MD Work Phone: [facility] 11-27-2022 13:51-0500 Heart rate 75 /min Ivette Grimes MD Work Phone: [facility] 11-27-2022 13:51-0500 SaO2% (BldA) [Mass fraction] 97 % Ivette Grimes MD Work Phone: [facility] 11-27-2022 13:51-0500 Systolic blood pressure 150 mm[Hg] Ivette Grimes MD Work Phone: [facility] 11-24-2022 15:07-0500 Heart rate 67 /min Dr. Ivette Grimes Work Phone: [facility] 11-24-2022 15:07-0500 SaO2% (BldA) [Mass fraction] 97 % Dr. Ivette Grimes Work Phone: [facility] 11-24-2022 13:43-0500 Diastolic blood pressure 64 mm[Hg] Dr. Ivette Grimes Work Phone: [facility] 11-24-2022 13:43-0500 Respiratory rate 16 /min Dr. Ivette Grimes Work Phone: [facility] 11-24-2022 13:43-0500 Systolic blood pressure 132 mm[Hg] Dr. Ivette Grimes Work Phone: [facility] 11-24-2022 11:44-0500 Body height 170.[address] Ivette Grimes Work Phone: [facility] 11-24-2022 11:44-0500 Body mass index (BMI) [Ratio] 47.2 kg/m2 Dr. Ivette Grimes Work Phone: [facility] 11-24-2022 11:44-0500 Body temperature 97.9 [degF] Dr. Ivette Grimes Work Phone: [facility] 11-24-2022 11:44-0500 Body weight [address] Ivette Grimes Work Phone: [facility] 11-08-2022 13:35-0500 Heart rate 70 /min Adelina Marinelli POULTRY PATHOLOGIST.MAINTAINER OPERATOR Work Phone: [facility] 11-08-2022 13:35-0500 Respiratory rate 14 /min Adelina Marinelli POULTRY PATHOLOGIST.MAINTAINER OPERATOR Work Phone: [facility] 11-08-2022 13:35-0500 SaO2% (BldA) [Mass fraction] 98 % Adelina Marinelli POULTRY PATHOLOGIST.MAINTAINER OPERATOR Work Phone: [facility] 09-04-2022 11:50-0400 Body height 170.2 cm Ivette Grimes MD Work Phone: [facility] 09-04-2022 11:50-0400 Body weight 123.11 kg Ivette Grimes MD Work Phone: [facility] 09-04-2022 11:50-0400 Diastolic blood pressure 80 mm[Hg] Ivette Grimes MD Work Phone: [facility] 09-04-2022 11:50-0400 Heart rate 74 /min Ivette Grimes MD Work Phone: [facility] 09-04-2022 11:50-0400 SaO2% (BldA) [Mass fraction] 98 % Ivette Grimes MD Work Phone: [facility] 09-04-2022 11:50-0400 Systolic blood pressure 160 mm[Hg] Ivette Grimes MD Work Phone: [facility] 08-16-2022 12:57-0400 Body height 170.[address] Ivette Grimes Work Phone: [facility] Work Phone: 08-16-2022 12:57-0400 Body mass index (BMI) [Ratio] 42.3 kg/m2 Dr. Ivette rGimes Work Phone: [facility] 08-16-2022 12:57-0400 Body weight 122.[address] Ivette Grimes Work Phone: [facility] 08-16-2022 12:57-0400 Diastolic blood pressure 78 mm[Hg] Dr. Ivette Grimes Work Phone: [facility] 08-16-2022 12:57-0400 Heart rate 73 /min Dr. Ivette Grimes Work Phone: [facility] 08-16-2022 12:57-0400 Respiratory rate 16 /min Dr. Ivette Grimes Work Phone: [facility] 08-16-2022 12:57-0400 Systolic blood pressure 117 mm[Hg] Dr. Ivette Grimes Work Phone: [facility] 08-07-2022 07:38-0400 Body height 170.[address] Ivette Grimes Work Phone: [facility] Work Phone: 08-07-2022 07:38-0400 Body mass index (BMI) [Ratio] 42.5 kg/m2 Dr. Ivette Grimes Work Phone: [facility] 08-07-2022 07:38-0400 Body temperature 99.1 [degF] Dr. Ivette Grimes Work Phone: [facility] 08-07-2022 07:38-0400 Body weight 123.[address] Ivette Grimes Work Phone: 0([phone] [address] 08-07-2022 07:38-0400 Diastolic blood pressure 81 mm[Hg] Dr. Ivette Grimes Work Phone: 0(188)[phone] [place] [address] 08-07-2022 07:38-0400 Heart rate 65 /min Dr. Ivette Grimes Work Phone: 0(786)[phone] [place] [address] 08-07-2022 07:38-0400 Respiratory rate 16 /min Dr. Ivette Grimes Work Phone: [facility] 08-07-2022 07:38-0400 SaO2% (BldA) [Mass fraction] 97 % Dr. Ivette Grimes Work Phone: [facility] 08-07-2022 07:38-0400 Systolic blood pressure 130 mm[Hg] Dr. Ivette Grimes Work Phone: [facility] 08-02-2022 09:50-0400 Body weight 122.02 kg Ivette Grimes MD Work Phone: [facility] 08-02-2022 09:50-0400 Diastolic blood pressure 82 mm[Hg] Ivette Grimes MD Work Phone: [facility] 08-02-2022 09:50-0400 Heart rate 60 /min Ivette Grimes MD Work Phone: [facility] 08-02-2022 09:50-0400 Systolic blood pressure 126 mm[Hg] Ivette Grimes MD Work Phone: [facility] 07-19-2022 12:57-0400 Body height 170.2 cm Karen Ocasioerich POULTRY PATHOLOGIST.MAINTAINER OPERATOR Work Phone: [facility] 07-19-2022 12:57-0400 Body weight 122.92 kg Karen Ocasioerich POULTRY PATHOLOGIST.MAINTAINER OPERATOR Work Phone: [facility] 07-19-2022 12:57-0400 Diastolic blood pressure 57 mm[Hg] Karen Ocasioerich POULTRY PATHOLOGIST.MAINTAINER OPERATOR Work Phone: [facility] 07-19-2022 12:57-0400 Heart rate 76 /min Karen Ninfaerich POULTRY PATHOLOGIST.MAINTAINER OPERATOR Work Phone: [facility] 07-19-2022 12:57-0400 Systolic blood pressure 115 mm[Hg] Karen Ocasioerich POULTRY PATHOLOGIST.MAINTAINER OPERATOR Work Phone: [facility] 06-07-2022 15:13-0400 Body temperature 97.81 [degF] Tara Dahlhausen POULTRY PATHOLOGIST.MAINTAINER OPERATOR Work Phone: [facility] 06-07-2022 15:13-0400 Body weight 119.84 kg Tara Dacolettehausen POULTRY PATHOLOGIST.MAINTAINER OPERATOR Work Phone: [facility] 06-07-2022 15:13-0400 Diastolic blood pressure 68 mm[Hg] Tara Dahlhausen POULTRY PATHOLOGIST.MAINTAINER OPERATOR Work Phone: [facility] 06-07-2022 15:13-0400 Heart rate 80 /min Tara Dahlhausen POULTRY PATHOLOGIST.MAINTAINER OPERATOR Work Phone: [facility] 06-07-2022 15:13-0400 Respiratory rate 22 /min Traa Dahlhausen POULTRY PATHOLOGIST.MAINTAINER OPERATOR Work Phone: [facility] 06-07-2022 15:13-0400 SaO2% (BldA) [Mass fraction] 98 % Tara Dahlhausen POULTRY PATHOLOGIST.MAINTAINER OPERATOR Work Phone: [facility] 06-07-2022 15:13-0400 Systolic blood pressure 112 mm[Hg] Tara Gillette POULTRY PATHOLOGIST.MAINTAINER OPERATOR Work Phone: [facility] 06-04-2022 14:39-0400 Body height 170.[address] Ivette Grimes Work Phone: [facility] Work Phone: 05-24-2022 11:01-0400 Heart rate 78 /min Adelina Marinelli POULTRY PATHOLOGIST.MAINTAINER OPERATOR Work Phone: [facility] 05-24-2022 11:01-0400 Respiratory rate 18 /min Adelina Marinelli POULTRY PATHOLOGIST.MAINTAINER OPERATOR Work Phone: [facility] 05-24-2022 11:01-0400 SaO2% (BldA) [Mass fraction] 98 % Adelina Marinelli POULTRY PATHOLOGIST.MAINTAINER OPERATOR Work Phone: [facility] 05-10-2022 10:54-0400 Diastolic blood pressure 75 mm[Hg] Elle Rasheed MD Work Phone: [facility] 05-10-2022 10:54-0400 Heart rate 61 /min Elle Rasheed MD Work Phone: [facility] 05-10-2022 10:54-0400 Respiratory rate 20 /min Elle Rasheed MD Work Phone: [facility] 05-10-2022 10:54-0400 SaO2% (BldA) [Mass fraction] 98 % Elle Rasheed MD Work Phone: [facility] 05-10-2022 10:54-0400 Systolic blood pressure 130 mm[Hg] Elle Rasheed MD Work Phone: [facility] 05-01-2022 14:39-0400 Body weight 118.39 kg Ivette Grimes MD Work Phone: [facility] 05-01-2022 14:39-0400 Diastolic blood pressure 80 mm[Hg] Ivette Grimes MD Work Phone: [facility] 05-01-2022 14:39-0400 Heart rate 68 /min Ivette Grimes MD Work Phone: [facility] 05-01-2022 14:39-0400 Respiratory rate 18 /min Ivette Grimes MD Work Phone: [facility] 05-01-2022 14:39-0400 SaO2% (BldA) [Mass fraction] 98 % Ivette Grimes MD Work Phone: [facility] 05-01-2022 14:39-0400 Systolic blood pressure 132 mm[Hg] Ivette Grimes MD Work Phone: [facility] 04-09-2022 15:29-0400 Body temperature 97.5 [degF] Ivette Price Jr., MD Work Phone: [facility] 04-09-2022 15:29-0400 Body weight 122.2 kg Ivette Price Jr., MD Work Phone: [facility] 04-09-2022 15:29-0400 Diastolic blood pressure 72 mm[Hg] Ivette Price Jr., MD Work Phone: [facility] 04-09-2022 15:29-0400 Heart rate 74 /min Ivette Price Jr., MD Work Phone: [facility] 04-09-2022 15:29-0400 Respiratory rate 18 /min Ivette Price Jr., MD Work Phone: [facility] 04-09-2022 15:29-0400 SaO2% (BldA) [Mass fraction] 97 % Ivette Price Jr., MD Work Phone: [facility] 04-09-2022 15:29-0400 Systolic blood pressure 138 mm[Hg] Ivette Price Jr., MD Work Phone: [facility] 03-29-2022 10:58-0400 Heart rate 62 /min Elle Rasheed MD Work Phone: [facility] 03-29-2022 10:58-0400 Respiratory rate 15 /min Elle Rasheed MD Work Phone: [facility] 03-29-2022 10:58-0400 SaO2% (BldA) [Mass fraction] 98 % Elle Rasheed MD Work Phone: [facility] 02-28-2022 16:31-0400 Body weight 120.66 kg Ivette Grimes MD Work Phone: [facility] 02-28-2022 16:31-0400 Diastolic blood pressure 82 mm[Hg] Ivette Grimes MD Work Phone: [facility] 02-28-2022 16:31-0400 Heart rate 72 /min Ivette Grimes MD Work Phone: [facility] 02-28-2022 16:31-0400 Systolic blood pressure 142 mm[Hg] Ivette Grimes MD Work Phone: [facility] 11-21-2021 13:58-0500 Body height 170.[address] Ivette Grimes Work Phone: [facility] Work Phone: 09-09-2017 14:42-0500 BMI (Body Mass Index) 41.78 kg/m2 Amparo Hitchcock MD [facility] 09-09-2017 14:42-0500 Body Temperature 98.5 [degF] Amparo Hitchcock MD [facility] 09-09-2017 14:42-0500 Body Temperature 98.49 [degF] Amparo Hitchcock MD [facility] 09-09-2017 14:42-0500 BP Diastolic 78 mm[Hg] Amparo Hitchcock MD [facility] 09-09-2017 14:42-0500 BP Systolic 137 mm[Hg] Amparo Hitchcock MD [facility] 09-09-2017 14:42-0500 Height 172.72 cm Amparo Hitchcock MD [facility] 09-09-2017 14:42-0500 Pulse (Heart Rate) 67 /min Amparo Hitchcock MD [facility] 09-09-2017 14:42-0500 Respiratory Rate 16 /min Amparo Hitchcock MD [facility] 09-09-2017 14:42-0500 Weight 124.65 kg Amparo Hitchcock MD [facility] 07-22-2017 16:06-0400 BMI (Body Mass Index) 39.53 kg/m2 [facility] Work Phone: 07-22-2017 16:06-0400 Pulse (Heart Rate) 95 /min [facility] Work Phone: 07-22-2017 16:06-0400 Respiratory Rate 22 /min [facility] Work Phone: 07-22-2017 16:06-0400 Weight 117.94 kg [facility] Work Phone: 05-10-2017 14:47-0400 Body Temperature 97.7 [degF] [facility] Work Phone: 05-10-2017 14:47-0400 BP Diastolic 84 mm[Hg] [facility] Work Phone: 05-10-2017 14:47-0400 BP Systolic 132 mm[Hg] [facility] Work Phone: 05-10-2017 14:47-0400 Height 172.72 cm [facility] Work Phone: Encounters Encounter Date Encounter Type Care Provider Facility Start: 09-16-2025 ambulatory [facility] Facility:[facility] Start: 09-14-2025 Encounter for other [facility]proced[facility] Start: 09-09-2025 End: 09-09-2025 ambulatory [facility] Facility:[facility] Start: 09-02-2025 End: 09-02-2025 ambulatory [facility] Start: 08-30-2025 End: 08-30-2025 ambulatory [facility] Start: 08-27-2025 End: 08-27-2025 ambulatory [facility] Facility:[facility] Start: 08-11-2025 End: 08-11-2025 ambulatory [facility] Start: 08-05-2025 End: 08-05-2025 Dr. Brett Quiroga MD -[facility] Work Phone: Start: 08-05-2025 End: 08-05-[address] Ivette Grimes MD Work Phone: -[facility] Start: 08-04-2025 End: 08-04-2025 ambulatory AMANDA Cedeno CHANDLER Facility:[facility] Start: 07-29-2025 End: 07-29-2025 ambulatory IVETTE James [facility] Facility:[facility] Start: 07-23-2025 End: 07-23-[address] Ivette Grimes MD Work Phone: -Laboratory Start: 07-23-2025 End: 07-23-2025 Dr. Ivette Grimes MD -Laboratory Work Phone: Start: 07-23-2025 End: 07-23-2025 ambulatory [facility] Facility:[facility] Start: 07-15-2025 End: 07-15-2025 Telephone encounter Lubna De La Garza APRN.MAINTAINER OPERATOR Work Phone: [facility] Start: 07-15-2025 End: 07-15-2025 Office outpatient visit 25 minutes Lubna De La Garza POULTRY PATHOLOGIST.MAINTAINER OPERATOR Work Phone: [facility] Comment on above: Sepsis due to Escher ichia coli with acute renal failure without septic shock, unspecified acute renal failure type (HCC) (Primary Dx); Type 2 diabetes mellitus with microalbuminuria, with long-term current use of insulin (HCC); LETITIA (obstructive sleep apnea); Obesity, Class III, BMI >= 40; Microalbuminuria; Type 2 diabetes mellitus without complication, with long-term current use of insulin (HCC); Migraine without aura and without status migrainosus, not intractable Start: 07-15-2025 End: 07-15-2025 ambulatory LUBNA DE LA GARZA Facility:[facility] Start: 07-09-2025 End: 07-09-[address] [facility]: Start: 07-09-2025 End: 07-09-2025 Dr. Brett Quiroga [facility] Work [facility]: Start: 07-09-2025 End: 07-09-[address] Ivette Grimes MD Work Phone: -[facility] Comment on above: Transition Of Care ( [facility] Discharge 07/07/25) Start: 07-07-2025 Non-patient / Non-visit Dr. Brittany emmanuel MD -[facility] Work Phone: Start: 07-07-2025 Dr. Brittany Harrison MD -[facility] Work Phone: Start: 07-06-2025 Non-patient / Non-visit Dr. Rachelle Reinoso MD -[facility] Work Phone: Start: 07-06-2025 Dr. Jose Juan Reinoso MD -[facility] Work Phone: Start: 07-05-2025 End: 07-07-2025 Evaluation and management of inpatient Dr. Shana Mendoza MD -Intensive Care Unit Work Phone: Start: 07-05-2025 ambulatory Shana Mendoza Facility :[facility] Start: 07-05-2025 Non-patient / Non-visit Dr. Shana Mendoza MD -[facility] Work Phone: Start: 07-05-2025 End: 07-07-2025 Dr. Brittany Harrison MD -Intensive Care Unit Work Phone: Start: 07-04-2025 End: 07-06-2025 Refill Ivette Grimes MD Work Phone: [facility] Comment on above: Refill Request Start: 06-25-2025 End: 06-25-[address] Brett Quiroga MD -[facility] Work Phone: Start: 06-25-2025 End: 06-25-2025 Dr. Brett Quiroga MD [facility] Work Phone: Start: 06-25-2025 End: 06-25-[address] Ivette Grimes MD Work Phone: -[facility] Start: 06-23-2025 Non-patient / Non-visit Dr. Brett hernandez MD -[facility] Start: 06-23-2025 End: 06-23-2025 Admission to same day surgery center Dr. Brett Quiroga MD [facility] Start: 06-23-2025 End: 06-23-2025 Dr. Brett Quiroga MD [facility] Start: 06-23-2025 End: 06-23-[address] Ivette Grimes MD Work Phone: -[facility] Start: 06-17-2025 End: 06-17-[address] Bibiana Rehman DC -[facility] Work Phone: Start: 06-17-2025 End: 06-17-2025 Dr. Bibiana Rehman DC -[facility] Work Phone: Start: 06-17-2025 End: 06-17-[address] Ivette Grimes MD Work Phone: -[facility] Start: 06-16-2025 End: 06-16-2025 Refill Ivette Grimes MD Work Phone: [facility] Comment on above: Refill Request Start: 06-10-2025 ambulatory Brett Quiroga Facility :[facility] Start: 06-10-2025 Non-patient / Non-visit Dr. Carson SHEARER -[facility] Work Phone: Start: 06-10-2025 Dr. Vin Montes MD -[facility] Work Phone: Start: 06-09-2025 End: 06-18-2025 Telephone encounter Ivette Grimes MD Work Phone: [facility] Comment on above: Results Start: 06-09-2025 End: 06-09-[address] Ivette Grimes MD Work Phone: -Laboratory Start: 06-09-2025 End: 06-09-[address] Ivette Grimes MD -Laboratory Work Phone: Start: 06-09-2025 End: 06-09-2025 Dr. Ivette Grimes MD -Laboratory Work Phone: Start: 06-09-2025 End: 06-09-2025 [facility] Start: 06-07-2025 End: 06-07-2025 Patient encounter procedure Ivette Grimes MD Work Phone: [facility] Comment on above: Well adult [...] encounter status Ivette Grimes MD Work Phone: [facility] Start: 06-07-2025 End: 06-07-2025 ambulatory IVETTE GRIMES Facility:[facility] Start: 06-07-2025 Encounter for genera l adult medical examination without abnormal findings IVETTE GRIMES [facility] Start: 06-05-2025 Registered Referred HEALTH RISK ASSE [facility] -Laboratory Work Phone: Start: 06-05-2025 HEALTH RISK ASSESSMENT -Laboratory Work Phone: Start: 06-05-2025 ambulatory Health Risk Assessment Facility:[facility] Start: 06-01-2025 End: 06-01-[address] Bibiana Rehman DC -[facility] Work Phone: Start: 06-01-2025 End: 06-01-2025 Dr. Bibiana Rehman DC -[facility] Work Phone: Start: 06-01-2025 End: 06-01-[address] Ivette Grimes MD Work Phone: -[facility] Start: 05-11-2025 ambulatory Ivette Grimes Facility:[facility] Start: 05-11-[address] Ivette barry MD -Physical Therapy Work Phone: Start: 05-11-2025 Dr. Ivette Grimes MD -Ph ysical Therapy Work Phone: Start: 05-06-2025 End: 05-06-[address] Brett Quiroga MD -[facility] Work Phone: Start: 05-06-2025 End: 05-06-2025 Dr. Brett Quiroga MD -[facility] Work Phone: Start: 05-06-2025 End: 05-06-[address] Ivette Grimes MD Work Phone: -[facility] Start: 05-05-[address] Ivette baryr MD -Physical Therapy Work Phone: Start: 04-21-2025 End: 04-21-[address] Bibiana Rehman DC -[facility] Work Phone: Start: 04-21-2025 End: 04-21-2025 Dr. Bibiana Rehman DC -[facility] Work Phone: Start: 04-21-2025 End: 04-21-[address] Ivette Grimes MD Work Phone: [facility] Work Phone: Start: 04-20-[address] Ivette barry MD -Physical Therapy Work Phone: Start: 04-17-2025 End: 04-17-[address] Ivette Grimes MD Work Phone: [facility] Work Phone: Start: 04-17-2025 End: 04-17-[address] Brett Quiroga MD -[facility] Work Phone: Start: 04-17-2025 End: 04-17-2025 Dr. Brett Quiroga MD -[facility] Work Phone: Start: 04-17-2025 End: 04-17-2025 ambulatory Ivette Grimes Facility:[facility] Start: 04-12-2025 End: 04-12-2025 ambulatory Ivette Grimes MD Work Phone: [facility] Comment on above: Muscle relaxer Start: 04-07-2025 End: 04-07-2025 Telephone encounter Ivette Grimes MD Work Phone: [facility] Comment on above: Rx Refills Start: 04-05-2025 End: 04-05-[address] Bibiana Rehman DC -[facility] Work Phone: Start: 04-05-2025 End: 04-05-[address] Ivette Grimes MD Work Phone: [facility] Work Phone: Start: 04-01-2025 End: 04-01-2025 Telephone encounter Amanda Arteaga PA-C Work Phone: Neurology Comment on above: Botox Approved Start: 03-22-2025 End: 03-22-[address] Brett Quiroga MD -[facility] Work Phone: Start: 03-22-2025 End: 03-22-[address] Ivette Grimes MD Work Phone: [facility] Work Phone: Start: 03-19-2025 End: 03-19-2025 Telephone encounter Amanda Arteaga PA-C Work Phone: Neurology Comment on above: Botox Referral Start: 03-11-2025 End: 03-11-[address] Ivette Grimes MD Work Phone: [facility] Work Phone: Start: 03-11-2025 End: 03-11-[address] Brett Quiroga MD -Radiology, [facility] Work Phone: Start: 03-11-2025 End: 03-11-2025 ambulatory [facility] Facility:[facility] Start: 03-09-2025 End: 03-09-[address] Bibiana Rehman DC -[facility] Work Phone: Start: 03-09-2025 End: 03-09-2025 ambulatory [facility] Facility:[facility] Start: 03-09-[address] Ivette barry MD -Physical Therapy Work Phone: Start: 03-09-2025 End: 03-09-2025 Telemedicine consultation with patient Amanda IRENE-C Work Phone: Neurology Start: 03-09-2025 End: 03-09-2025 ambulatory Amanda Krystle Arteaga PA-C Work Phone: Neurology Comment on above: Intractable chronic migraine without aura and with status migrainosus (Primary Dx) Start: 03-04-2025 End: 03-04-2025 Telephone encounter Amanda Arteaga PA-C Work Phone: Neurology Start: 03-02-2025 End: 03-02-2025 Telemedicine consultation with patient Ivette Grimes MD Work Phone: [facility] Start: 03-02-2025 End: 03-02-2025 ambulatory Ivette Grimes MD Work Phone: [facility] Comment on above: Intractable chronic migraine without aura and without status migrainosus (Primary Dx); Chronic left shoulder pain Start: 02-16-2025 ambulatory [facility] Start: 02-04-2025 End: 02-04-[address] Bibiana Rehman DC -[facility] Work Phone: Start: 02-04-2025 End: 02-04-2025 ambulatory [facility] Start: 01-28-2025 End: 01-28-2025 Chart abstracting Ivette Grimes MD Work Phone: [facility] Start: 01-28-2025 End: 03-30-2025 Follow-up encounter Ivette Grimes MD Work Phone: [facility] Start: 01-28-2025 End: 02-08-2025 Telephone encounter Ivette Grimes MD Work Phone: [facility] Comment on above: PA new dose of ozemp ic Results Start: 01-28-2025 End: 01-28-[address] Ivette Grimes MD Work Phone: [facility] Work Phone: Start: 01-28-2025 End: 01-28-[address] Ivette Grimes MD -Laboratory Work Phone: Start: 01-28-2025 End: 01-28-2025 [facility] Start: 01-22-2025 End: 01-22-2025 [facility] Start: 01-22-2025 End: 01-22-2025 Patient encounter procedure Ivette Grimes MD Work Phone: [facility] Comment on above: LETITIA (obstructive sle ep apnea) (Primary Dx); Flank pain; Headache, unspecified headache type; Type 2 diabetes mellitus with microalbuminuria, with long-term current use of insulin (HCC); Essential (primary) hypertension; Chronic left shoulder pain; Anxiety; Screening for depression Start: 12-24-2024 End: 12-25-2024 Refill Ivette Grimes MD Work Phone: [facility] Comment on above: Refill Request Start: 12-21-2024 End: 12-24-2024 Telephone encounter Jenni Jain APRN.CNP Work Phone: [facility] Comment on above: Results (Labs/Chest xray ) Start: 12-11-2024 End: 12-11-2024 Telephone encounter Ivette Grimes MD Work Phone: [facility] Comment on above: Orders Start: 12-11-2024 End: 12-11-2024 Patient encounter procedure Jenni Jain SYSTEMS INTEGRATION ENGINEER-C -Radiology, [facility] Work Phone: Start: 12-11-2024 End: 12-11-2024 Office outpatient visit 25 minutes Jennifrank Jain POULTRY PATHOLOGIST.MAINTAINER OPERATOR Work Phone: [facility] [place] Comment on above: Sinobronchitis (Prim ziyad Dx); Hypokalemia Start: 12-11-2024 End: 12-11-2024 ambulatory JENNI JAIN Facility:[facility] Start: 12-11-2024 End: 12-11-2024 ambulatory Ivette Grimes Facility:[facility] Start: 11-25-2024 End: 11-25-2024 Refill Ivette Grimes MD Work Phone: [facility] Comment on above: Refill Request Start: 11-23-2024 End: 11-23-2024 Refill Ivette Grimes MD Work Phone: [facility] Comment on above: Refill Request Start: 11-17-2024 End: 12-18-2024 ambulatory Ivette Grimes MD Work Phone: [facility] [place] Start: 11-11-2024 End: 11-11-2024 Emergency department patient visit Dr. Buddy Hall DO -Emergency Department Work Phone: Start: 10-26-2024 End: 10-26-2024 Refill Ivette Grimes MD Work Phone: Psychiatry Comment on above: Refill Request Start: 10-19-2024 End: 10-19-2024 ambulatory Ivette Grimes MD Work Phone: [facility] Comment on above: Flank pain (Primary Dx) Start: 10-19-2024 End: 10-19-2024 Telemedicine consultation with patient Ivette Grimes MD Work Phone: [facility] [place] Start: 10-19-2024 End: 10-19-[address] Bibiana Rehman DC -[facility] Work Phone: Start: 10-19-2024 End: 10-19-2024 ambulatory Ivette Grimes Facility:[facility] Start: 10-16-2024 End: 10-16-2024 Emergency department patient visit Dr. Sam Pearl MD -Emergency Department Work Phone: Start: 10-07-2024 ambulatory Ivette Grimes Facility:[facility] Start: 09-24-2024 End: 09-24-2024 ambulatory Ivette Grimes MD Work Phone: [facility] Comment on above: Dysuria (Primary Dx) ; Type 2 diabetes mellitus with microalbuminuria, with long-term current use of insulin (HCC); Primary insomnia Start: 09-24-2024 End: 09-24-2024 Telemedicine consultation with patient Ivette Grimes MD Work Phone: [facility] Start: 09-03-2024 End: 09-03-2024 Patient encounter procedure Fatuma Beckford PA-C Work Phone: Neurology Comment on above: Intractable chronic migraine without aura and without status migrainosus (Primary Dx) Start: 09-01-2024 End: 09-02-2024 Telephone encounter Fatuma Beckford PA-C Work Phone: Neurology Comment on above: Appointment Patient Question Start: 08-11-2024 End: 08-11-2024 Telephone encounter Fatuma Beckford PA-C Work Phone: Neurology Comment on above: Appointment Start: 08-10-2024 End: 08-11-2024 Refill Ivette Grimes MD Work Phone: [facility] [place] Comment on above: Refill Request Start: 08-05-2024 End: 08-06-2024 Telephone encounter Ivette Grimes MD Work Phone: [facility] [place] Comment on above: Insurance Authorizat ion (Ozempic ) Start: 08-05-2024 End: 08-05-2024 Patient encounter procedure Ivette Grimes MD Work Phone: [facility] [place] Comment on above: Well adult exam ([facility] Dx); Essential (primary) hypertension; LETITIA (obstructive sleep apnea); Nonalcoholic fatty liver; Type 2 diabetes mellitus with microalbuminuria, with long-term current use of insulin (HCC); Vertigo; Morbid obesity (HCC); Anxiety; Prolonged Q-T interval on ECG; Herniation of lumbar intervertebral disc with radiculopathy Start: 08-05-2024 End: 08-05-2024 Patient encounter status Ivette Grimes MD Work Phone: [facility] Start: 07-24-2024 End: 07-27-2024 Refill Ivette Grimes MD Work Phone: Psychiatry Comment on above: Refill Request Start: 07-21-2024 End: 07-21-2024 Telephone encounter Ivette Grimes MD Work Phone: [facility] [place] Comment on above: Orders Start: 07-09-2024 End: 07-10-2024 Telephone encounter Ivette Grimes MD Work Phone: [facility] [place] Comment on above: Patient Question Start: 07-08-2024 End: 07-08-2024 Chart abstracting Ivette Grimes MD Work Phone: [facility] [place] Start: 07-08-2024 End: 07-08-2024 Telephone encounter Ivette Grimes MD Work Phone: [facility] [place] Comment on above: Results Start: 07-07-2024 End: 07-07-2024 Chart abstracting Ivette Grimes MD Work Phone: [facility] [place] Start: 07-03-2024 End: 07-03-2024 Patient encounter procedure Ivette Grimes MD Work Phone: [facility] [place] Comment on above: Bronchitis (Primary Dx); Type 2 diabetes mellitus with microalbuminuria, with long-term current use of insulin (HCC); Wheezing Start: 06-27-2024 End: 06-29-2024 Refill Ivette Grimes MD Work Phone: [facility] [place] Comment on above: Refill Request Start: 06-11-2024 ambulatory Ivette Grimes MD Work Phone: [facility] [place] Comment on above: Good Afternoon Start: 06-05-2024 ambulatory Fatuma Gupta fahad PA-C Work Phone: Neurology Comment on above: Botox Start: 06-05-2024 E-mail encounter fro m caregiver Fatuma Robertscatherine FULLER Work Phone: Neurology Start: 06-04-2024 Telephone encounter Fatuma Rico perales PA-C Work Phone: Neurology Comment on above: Insurance Authorizat ion ([employer]) Start: 06-03-2024 End: 06-03-2024 ambulatory Ivette Grimes MD Work Phone: [facility] [place] Comment on above: Left sided sciatica (Primary Dx); Screening for depression Start: 06-03-2024 End: 06-03-2024 Telemedicine consultation with patient Ivette Grimes MD Work Phone: [facility] [place] Start: 05-12-2024 Refill Ivette Grimes MD Work Phone: [facility] [place] Comment on above: Refill Request Start: 05-01-2024 Telephone encounter Ivette Grimes MD Work Phone: [facility] Comment on above: medication not on cu rrent medication list Start: 04-20-2024 Refill Ivette Grimes MD Work Phone: [facility] [place] Comment on above: Refill Request Start: 04-19-2024 Refill Ivette Grimes MD Work Phone: [facility] [place] Comment on above: Refill Request Start: 04-14-2024 Refill Grace morales APRN.CNP Work Phone: Psychiatry Comment on above: Refill Request Insurance Authorizat ion (Trulicity ) Start: 04-06-2024 Telephone encounter Fatuma Rico perales PA-C Work Phone: Neurology Comment on above: Insurance Authorizat ion (Botox ) Start: 04-02-2024 End: 04-02-2024 Patient encounter procedure Fatuma Shakeel IRENE-C Work Phone: Neurology Comment on above: Intractable chronic migraine without aura and without status migrainosus (Primary Dx) Start: 02-28-2024 Refill Stephanie Paz POULTRY PATHOLOGIST.MAINTAINER OPERATOR Work Phone: [facility] Comment on above: Refill Request Start: 02-04-2024 End: 02-04-2024 Emergency department patient visit Dr. Ivette Grimes Work Phone: [facility]-Emergency Department Work Phone: Start: 01-22-2024 Refill Ivette Grimes MD Work Phone: [facility] Comment on above: Refill Request Start: 01-01-2024 Refill Grace morales POULTRY PATHOLOGIST.MAINTAINER OPERATOR Work Phone: Psychiatry Comment on above: Refill Request Start: 12-27-2023 Telephone encounter Fatuma Rico perales PA-C Work Phone: Neurology Comment on above: Insurance Authorizat ion Start: 12-26-2023 End: 12-26-2023 Patient encounter procedure Fatumarobin IRENE-Mireya Work Phone: Neurology Comment on above: Intractable chronic migraine without aura and without status migrainosus (Primary Dx) Start: 12-10-2023 End: 12-10-[address] Ivette Grimes Work Phone: [facility] Work Phone: Start: 12-09-2023 End: 12-09-2023 Patient encounter procedure Ivette Grimes MD Work Phone: [facility] Comment on above: Essential (primary) hypertension (Primary Dx); LETITIA (obstructive sleep apnea); Fatty liver; Vertigo; Anxiety Start: 12-09-2023 Telephone encounter Ivette Grimes MD Work Phone: [facility] Comment on above: Orders Start: 12-06-2023 End: 12-06-[address] Ivette Grimes Work Phone: [facility] Work Phone: Start: 12-06-2023 End: 12-06-[address] Ivette Grimes Work Phone: [facility]-Laboratory, OP Pavilion Start: 12-05-2023 ambulatory Ivette Grimes MD Work Phone: [facility] Comment on above: Labs Start: 10-27-2023 End: 10-27-2023 Emergency department patient visit Self Referred [facility]Emergency [facility] Work Phone: Start: 10-14-2023 Refill Ivette Grimes MD Work Phone: [facility] Comment on above: Refill Request Start: 09-23-2023 Refill Adriana Patel Work Phone: Psychiatry Comment on above: Refill Request Start: 09-12-2023 End: 09-12-2023 Patient encounter procedure Self Referred [facility] Work Phone: Start: 09-09-2023 Refill Ivette Grimes MD Work Phone: [facility] Comment on above: Refill Request Start: 08-21-2023 E-mail encounter fro m caregiver [facility] Start: 08-21-2023 Patient encounter procedure [facility] Neurology Comment on above: Botox Appointment Start: 08-20-2023 Telephone encounter Ivette Grimes MD Work Phone: [facility] Comment on above: Forms ([facility] preventat ashish care ) Start: 08-15-2023 End: 08-15-2023 Patient encounter procedure Self Referred [facility] Work Phone: Start: 08-07-2023 Non-patient / Non-visit Self Referre d [facility] Work Phone: Start: 08-06-2023 Non-patient / Non-visit Self Referre d [facility] Work Phone: Start: 08-06-2023 Non-patient / Non-visit Self Referre d [facility] Start: 08-05-2023 End: 08-07-2023 Evaluation and management of inpatient Dr. Ivette Grimes Work Phone: [facility]-Progressive Care Unit Work Phone: Start: 08-05-[address] Reji Grimes Work Phone: [facility] Work Phone: Start: 08-01-2023 End: 08-01-[address] [facility] Work Phone: Start: 08-01-2023 End: 08-01-2023 ambulatory Self Referred [facility] Work Phone: Start: 08-01-2023 End: 08-01-2023 Discharged Recurring Self Referred [facility]-Physical Therapy Work Phone: Start: 08-01-[address] Greald Grimes Work Phone: [facility]Physical Therapy Work Phone: Start: 07-18-2023 End: 07-18-[address] [facility] Work Phone: Start: 07-18-2023 End: 07-18-[address] Ivette Grimes Work Phone: [facility] Work Phone: Start: 07-18-2023 End: 07-18-[address] Ivette Grimes Work Phone: [facility]-Physical Therapy Work Phone: Start: 07-05-2023 Refill Ivette Grimes MD Work Phone: [facility] Comment on above: Refill Request Start: 06-20-2023 End: 06-20-[address] [facility] Gr[facility] Work Phone: Start: 06-19-2023 End: 06-20-2023 Patient encounter procedure Umesh Delgado Work Phone: Podiatry Comment on above: Plantar fasciitis (P rimary Dx); Calcaneal spur of right foot Start: 06-08-2023 Refill Grace morales POULTRY PATHOLOGIST.MAINTAINER OPERATOR Work Phone: Psychiatry Comment on above: Refill Request Start: 06-07-2023 End: 06-07-2023 Patient encounter procedure Ivette Price MD Work Phone: Neurology Comment on above: Memory loss (Primary Dx); Attention and concentration deficit; Post concussion syndrome; Intractable migraine without aura and without status migrainosus; LETITIA (obstructive sleep apnea) Start: 06-06-2023 End: 06-06-[address] Ivette Grimes [facility] Work Phone: Start: 06-06-2023 End: 06-06-2023 Patient encounter procedure Ivette Grimes MD Work Phone: [facility] [place] Comment on above: Type 2 diabetes fred [...] End: 05-29-2023 Patient encounter procedure Isiah Funes APRN.MAINTAINER OPERATOR Work Phone: [facility] [facility] Comment on above: Foot pain, right (Pr imary Dx) Start: 05-29-2023 Telephone encounter Nicole vaca PA-C Work Phone: Urgent Care Comment on above: Pt requesting Boot Start: 05-28-2023 End: 05-28-2023 Subsequent hospital visit by physician X[facility] Work Phone: Radiology Comment on above: Pain of right heel [ M79.671] Start: 05-20-2023 End: 05-20-2023 Emergency department patient visit Dr. Ivette Grimes Work Phone: [facility]-Emergency Department Work Phone: Start: 05-17-2023 End: 05-17-2023 Patient encounter procedure Fatuma IRENE-C Work Phone: Neurology Comment on above: Intractable chronic migraine without aura and without status migrainosus (Primary Dx); Post concussive syndrome Start: 05-09-[address] Gerald Grimes Work Phone: [facility]-Physical Therapy Work Phone: Start: 05-07-2023 Refill Ivette Grimes MD Work Phone: [facility] Comment on above: Refill Request Start: 04-30-2023 End: 04-30-[address] Ivette Grimes [facility] Work Phone: Start: 04-16-2023 End: 04-16-[address] Ivette Grimes [facility] Work Phone: Start: 04-04-2023 Refill Ivette Grimes MD Work Phone: [facility] Comment on above: Refill Request Start: 04-02-2023 End: 04-02-[address] Ivette Grimes Work Phone: [facility] Work Phone: Start: 04-02-2023 End: 04-02-[address] Ivette Grimes Work Phone: [facility] Work Phone: Start: 04-02-2023 End: 04-02-[address] Ivette Grimes Work Phone: [facility]-Pulmonary Services/Neurology Work Phone: Start: 03-20-2023 Telephone encounter Fatuma perales PA-C Work Phone: Neurology Comment on above: Medication Authoriza tion (Botox renewal ) Start: 03-19-2023 End: 03-19-[address] Ivette Grimes Work Phone: [facility] Work Phone: Start: 03-12-2023 ambulatory Fatuma vásquez PA-C Work Phone: Neurology Comment on above: EEG Start: 03-09-2023 ambulatory Karen lópez APRN.MAINTAINER OPERATOR Work Phone: Neurology Comment on above: Botox Start: 03-05-[address] Gerald Grimes Work Phone: [facility]-Physical Therapy Start: 03-05-2023 End: 03-05-2023 Patient encounter procedure Galina Camacho MD Work Phone: OB/Gynecology Comment on above: Encounter for gyneco logical examination (general) (routine) without abnormal findings (Primary Dx) Post concussion synd roberta (Primary Dx); LETITIA (obstructive sleep apnea); Intractable acute post-traumatic headache; Altered awareness, transient Start: 03-05-2023 End: 03-05-2023 Patient encounter status Galina Cmaacho MD Work Phone: OB/Gynecology Start: 03-04-2023 End: 03-04-2023 ambulatory Ivette rGimes MD Work Phone: [facility] [place] Comment on above: Question regarding M ICROALBUMIN/CREATININE UR W RATIO (EXTERNAL) labs Start: 03-04-2023 E-mail encounter fro m caregiver Ivette Grimse MD Work Phone: [facility] [place] Start: 03-04-2023 Telephone encounter Ivette Grimes MD Work Phone: [facility] Comment on above: Medication change re quested Start: 03-04-2023 End: 03-04-[address] Ivette Grimes Work Phone: [facility]Laboratory, [facility] Start: 03-01-2023 Telephone encounter Ivette Price MD Work Phone: Neurology Comment on above: Appointment Start: 03-01-2023 End: 03-01-2023 Patient encounter procedure Ivette Price MD Work Phone: Neurology Comment on above: Post concussion synd roberta (Primary Dx); LETITIA (obstructive sleep apnea) Start: 02-28-2023 End: 02-28-2023 Patient encounter procedure Ivette Grimes MD Work Phone: [facility] Comment on above: Soft tissue mass (Pr imary Dx); Post concussive syndrome; Essential (primary) hypertension; Type 2 diabetes mellitus with microalbuminuria, with long-term current use of insulin (HCC); Headache, unspecified headache type; Myalgia Start: 02-28-2023 End: 02-28-[address] Ivette Grimes Work Phone: [facility] Start: 02-28-2023 End: 02-28-2023 Subsequent hospital visit by physician Mri [facility] (I-Stat/1.5t) Work Phone: Radiology Comment on above: Post concussion synd roberta [F07.81] Start: 02-27-2023 Telephone encounter Ivette Grimes MD Work Phone: [facility] [place] Comment on above: Medication Request Start: 02-22-2023 Refill Ivette Grimes MD Work Phone: [facility] [place] Comment on above: Refill Request Start: 02-15-2023 End: 02-15-2023 [facility] Grace Coronel APRN.CNP Work Phone: Psychiatry Comment on above: VAHE (generalized anx iety disorder) (Primary Dx); Recurrent major depressive disorder, in full remission (HCC) Start: 02-14-2023 End: 02-14-[address] Ivette Grimes Work Phone: [facility] Start: 02-14-[address] Gerald Grimes Work Phone: [facility]-Physical Therapy Start: 02-11-2023 Refill Ivette Grimes MD Work Phone: [facility] Comment on above: Refill Request Start: 02-09-2023 Telephone encounter Ivette Grimes MD Work Phone: [facility] Comment on above: Results Start: 02-08-2023 End: 02-08-[address] Ivette Grimes Work Phone: [facility] Work Phone: Start: 02-08-2023 End: 02-08-[address] Ivette Grimes Work Phone: [facility] Start: 01-31-2023 Telephone encounter Ivette Grimes MD Work Phone: [facility] Comment on above: Orders Start: 01-31-2023 End: 01-31-[address] Ivette Grimes Work Phone: [facility] Start: 01-31-2023 End: 01-31-2023 Patient encounter procedure Ivette Grimes MD Work Phone: [facility] Comment on above: Post concussive synd roberta (Primary Dx); Headache, unspecified headache type; Injury of neck, subsequent encounter Start: 01-24-2023 End: 01-24-2023 ambulatory ELLE RASHEED Facility:[facility] Start: 01-24-2023 End: 01-24-2023 Patient encounter procedure Elle Rasheed MD Work Phone: [facility] Comment on above: [...] 01-17-[address] Ivette Grimes Work Phone: [facility] Work Phone: Start: 01-17-2023 End: 01-17-[address] Ivette Grimes Work Phone: [facility]-Physical Therapy Start: 01-17-2023 End: 01-17-2023 Patient encounter procedure Ivette Grimes MD Work Phone: [facility] Comment on above: Post concussive synd roberta (Primary Dx); Headache, unspecified headache type; Injury of neck, subsequent encounter Start: 01-17-2023 End: 01-17-[address] Ivette Grimes Work Phone: [facility] Start: 01-09-2023 Refill Ivette Grimes MD Work Phone: [facility] Comment on above: Refill Request Start: 01-08-2023 Telephone encounter Ivtete Grimes MD Work Phone: [facility] Comment on above: Insurance Authorizat ion (Trulicity ) Start: 01-04-2023 End: 01-04-2023 Patient encounter procedure Ivette Grimes MD Work Phone: [facility] Comment on above: Post concussive synd roberta (Primary Dx); Headache, unspecified headache type Start: 01-03-2023 End: 01-03-[address] Ivette Grimes Work Phone: [facility] Start: 01-02-2023 End: 01-02-2023 ambulatory [facility] Facility:[facility] Start: 01-01-2023 Telephone encounter Ivette Grimes MD Work Phone: [facility] [place] Comment on above: Patient Update Start: 12-28-2022 End: 12-28-[address] Ivette Grimes Work Phone: [facility] Start: 12-26-2022 End: 12-26-2022 Patient encounter procedure Ivette Grimes MD Work Phone: [facility] Comment on above: Post concussion synd roberta (Primary Dx); Essential (primary) hypertension Refill Request Start: 12-24-2022 Refill Karen lópez APRN.CNP Work Phone: Neurology Comment on above: Refill Request MRI'S need prior aut horization with workman comp Start: 12-20-2022 End: 12-20-[address] Ivette Grimes Work Phone: [facility] Start: 12-14-2022 End: 12-14-2022 Patient encounter procedure Ivette Grimes MD Work Phone: [facility] Comment on above: Post concussion synd roberta (Primary Dx); Essential (primary) hypertension; Microalbuminuria; Type 2 diabetes mellitus without complication, with long-term current use of insulin (HCC) Start: 12-11-2022 Refill Ivette Grimes MD Work Phone: [facility] Comment on above: Refill Request Mri Start: 12-07-2022 End: 12-07-2022 Patient encounter procedure Ivette Price MD Work Phone: Neurology Comment on above: Post concussion synd roberta (Primary Dx); Intractable acute post-traumatic headache; Dizziness; Cervicalgia; History of migraine; LETITIA (obstructive sleep apnea) Start: 12-07-2022 End: 12-07-2022 Patient encounter procedure Ivette Grimes MD Work Phone: [facility] Comment on above: Headache, unspecifie d headache type (Primary Dx); Concussion with loss of consciousness, initial encounter Start: 12-06-2022 End: 12-06-[address] Ivette Grimes Work Phone: [facility] Start: 12-06-2022 End: 12-06-[address] Ivette Grimes Work Phone: [facility] Start: 12-04-2022 Telephone encounter Ivette Grimes MD Work Phone: [facility] Comment on above: Hank requesting records Start: 12-03-2022 End: 12-03-2022 Emergency department patient visit [facility] Start: 12-03-2022 Telephone encounter Ivette Grimes MD Work Phone: [facility] Comment on above: Patient Update Start: 11-30-2022 End: 11-30-2022 ambulatory Ivette Grimes MD Work Phone: [facility] Comment on above: Headache, unspecifie d headache type (Primary Dx); Concussion with loss of consciousness, initial encounter Start: 11-30-2022 End: 11-30-2022 Telemedicine consultation with patient Ivette Grimes MD Work Phone: [facility] Start: 11-29-2022 Telephone encounter Elle Rasheed MD Work Phone: [facility] [place] Comment on above: Patient Question (Aby coker appointment on 12/05/22) Start: 11-27-2022 End: 11-27-2022 Emergency department patient visit Dr. Ivette Grimes Work Phone: [facility]Emer[facility] Start: 11-27-2022 End: 11-27-[address] Ivette Grimes Work Phone: [facility] Comment on above: Worst headache of li fe (Primary Dx); Concussion with loss of consciousness, initial encounter Start: 11-27-[address] Gerald Grimes [facility] Start: 11-24-2022 End: 11-24-2022 Emergency department patient visit Dr. Ivette Grimes Work Phone: [facility] Start: 11-23-2022 Refill Ivette Grimes MD Work Phone: [facility] Comment on above: Refill Request Start: 11-22-[address] Gerald Grimes [facility] Start: 11-22-2022 End: 11-22-[address] Ivette Grimes Work Phone: [facility] Start: 11-20-2022 Orders Only Elle Rasheed MD Work Phone: [facility] [place] Comment on above: Chronic left shoulde r pain (Primary Dx); Adhesive capsulitis of left shoulder Start: 11-15-2022 Refill Ivette Grimes MD Work Phone: [facility] Comment on above: Refill Request Start: 11-08-2022 End: 11-08-2022 ambulatory ADELINA MARINELLI Facility:[facility] Start: 11-08-2022 Telephone encounter Elle Rasheed MD Work Phone: [facility] Comment on above: Injections Start: 11-08-2022 End: 11-08-2022 Patient encounter procedure Adelina Marinelli POULTRY PATHOLOGIST.MAINTAINER OPERATOR Work Phone: [facility] Comment on above: Chronic left shoulde r pain (Primary Dx); Adhesive capsulitis of left shoulder; Neuropathic pain; Myofascial pain Start: 11-08-2022 End: 11-08-[address] Ivette Grimes Work Phone: [facility] Start: 10-23-2022 End: 10-23-[address] Ivette Grimes Work Phone: [facility] Start: 10-16-2022 End: 10-16-[address] Ivette Grimes Work Phone: [facility] Start: 10-16-[address] Gerald Grimes Work Phone: [facility] Start: 10-15-2022 End: 10-15-[address] Ivette Grimes Work Phone: [facility] Work Phone: Start: 10-15-2022 End: 10-15-[address] Ivette Grimes Work Phone: [facility] Start: 10-12-2022 End: 10-12-2022 [facility] Grace Coronel POULTRY PATHOLOGIST.MAINTAINER OPERATOR Work Phone: Psychiatry Comment on above: VAHE (generalized anx iety disorder) (Primary Dx); Major depressive disorder, recurrent episode, moderate (HCC) Start: 10-10-2022 ambulatory [facility] Comment on above: Botox Start: 10-10-2022 E-mail encounter escobar cedeno caregiver [facility] Start: 10-06-2022 Refill Tara alcantar POULTRY PATHOLOGIST.MAINTAINER OPERATOR Work Phone: Neurology Comment on above: Refill Request Start: 10-05-2022 Refill Ivette Grimes MD Work Phone: [facility] Comment on above: Refill Request Start: 10-02-2022 Telephone encounter Adelina lazaro POULTRY PATHOLOGIST.MAINTAINER OPERATOR Work Phone: [facility] Comment on above: Appointment; Patient Question Start: 10-02-2022 End: 10-02-[address] Ivette Grimes Work Phone: [facility] Start: 09-19-2022 Refill Ivette Grimes MD Work Phone: [facility] Comment on above: Refill Request Start: 09-13-2022 End: 09-13-[address] Iv[facility] Gr[facility] Start: 09-13-[address] Gerald [facility] Start: 09-12-2022 ambulatory Ivette Grimes MD Work Phone: [facility] Start: 09-12-2022 Chart abstracting Rivka SwansonW Work Phone: Adult Psychology Comment on above: Behavioral Health So cial Work Start: 09-12-2022 Follow-up encounter Ivette Grimes MD Work Phone: [facility] Comment on above: Follow up (couldn t reply to other message) Start: 09-06-2022 End: 09-06-2022 Refill Ivette Grimes MD Work Phone: [facility] Comment on above: Refill Request Start: 09-06-2022 End: 09-06-[address] Ivette Grimes Work Phone: [facility] Start: 09-04-2022 ambulatory Ivette Grimes MD Work Phone: [facility] Comment on above: Migraine/botox quest ion Start: 09-04-2022 End: 09-04-2022 Patient encounter procedure Ivette Grimes MD Work Phone: [facility] Comment on above: Lightheadedness (Carolyn alyssa Dx); Essential (primary) hypertension; Prolonged Q-T interval on ECG; Type 2 diabetes mellitus with microalbuminuria, with long-term current use of insulin (HCC); Fatty liver; LETITIA (obstructive sleep apnea) Start: 09-04-[address] Gerald [facility] Start: 09-03-2022 End: 09-03-2022 ambulatory Ivette Grimes MD Work Phone: [facility] Comment on above: Malaise (Primary Dx) Start: 09-03-2022 End: 09-03-2022 Telemedicine consultation with patient Ivette Grimes MD Work Phone: [facility] Start: 09-03-2022 E-mail encounter fro m caregiver [facility] Start: 09-03-2022 Patient encounter procedure [facility] Comment on above: Botox Appointment Start: 08-30-2022 Non-patient / Non-visit Dr. Regina Grimes Work Phone: [facility] Start: 08-30-2022 End: 08-30-[address] Ivette Grimes Work Phone: [facility] Work Phone: Start: 08-30-2022 End: 08-30-[address] Ivette Grimes Work Phone: [facility] Start: 08-29-2022 End: 08-29-[address] Ivette Grimes Work Phone: [facility] Work Phone: Start: 08-29-2022 End: 08-29-[address] Ivette Grimes Work Phone: [facility] Start: 08-27-2022 ambulatory Ivette Grimes MD Work Phone: [facility] Comment on above: Quick question Start: 08-21-2022 Telephone encounter Karen renee APRN.CNP Work Phone: Neurology Comment on above: Medication Authoriza tion (Botox Approved) Start: 08-21-2022 End: 08-21-[address] Ivette Grimes Work Phone: [facility] Start: 08-16-2022 End: 08-16-[address] Ivette Grimes Work Phone: [facility] Start: 08-16-[address] Gerald Grimes Work Phone: [facility] Start: 08-10-2022 End: 08-10-[address] Ivette Grimes Work Phone: [facility] Work Phone: Start: 08-10-2022 End: 08-10-[address] Ivette Grimes Work Phone: [facility] Start: 08-08-2022 Chart abstracting Ivette Martínez MD Work Phone: [facility] Start: 08-08-2022 Telephone encounter Adelina lazaro POULTRY PATHOLOGIST.MAINTAINER OPERATOR Work Phone: [facility] Comment on above: Patient Update Start: 08-08-2022 End: 08-08-[address] Ivette Grimes Work Phone: [facility] Work Phone: Start: 08-08-2022 End: 08-08-[address] Ivette Grimes Work Phone: [facility] Start: 08-07-[address] Gerald Grimes Work Phone: [facility] Start: 08-07-2022 End: 08-07-[address] Ivette Grimes Work Phone: [facility] Start: 08-06-2022 ambulatory Ivette Grimes MD Work Phone: [facility] Comment on above: Labs Start: 08-02-2022 ambulatory Karen lópez POULTRY PATHOLOGIST.MAINTAINER OPERATOR Work Phone: Neurology Comment on above: Migraines Start: 08-02-2022 End: 08-02-[address] Ivette Grimes Work Phone: [facility] Start: 08-02-2022 End: 08-02-2022 Patient encounter procedure Ivette Grimes MD Work Phone: [facility] Comment on above: Type 2 diabetes fred itus with microalbuminuria, with long-term current use of insulin (HCC) (Primary Dx); Fatty liver; LETITIA (obstructive sleep apnea); Microalbuminuria; Lumbar disc disorder; Prolonged Q-T interval on ECG; Fatigue, unspecified type Start: 08-01-2022 ambulatory Ivette Grimes MD Work Phone: [facility] Comment on above: Sign Designer Start: 08-01-2022 Telephone encounter Karen renee APRN.MAINTAINER OPERATOR Work Phone: Neurology Comment on above: Medication Authoriza tion (Botox referral) Start: 07-24-2022 End: 07-24-[address] Ivette Grimes Work Phone: [facility] Start: 07-24-2022 End: 07-24-[address] Ivette Grimes Work Phone: [facility] Work Phone: Start: 07-24-2022 End: 07-24-[address] Ivette Grimes Work Phone: [facility] Start: 07-23-2022 Refill Ivette Grimes MD Work Phone: [facility] Comment on above: Refill Request Start: 07-19-2022 Telephone encounter Elle Rasheed MD Work Phone: [facility] Comment on above: Patient Update (Inje ction questions ) Start: 07-19-2022 End: 07-19-2022 Patient encounter procedure Karen Bansal APRN.MAINTAINER OPERATOR Work Phone: Neurology Comment on above: Intractable chronic migraine without aura and without status migrainosus (Primary Dx); Mixed migraine and muscle contraction headache Start: 07-19-2022 End: 07-19-2022 ambulatory ADELINA MARINELLI Facility:[facility] Start: 07-10-2022 Refill Krystle kessler PA-C Work Phone: [facility] Comment on above: Refill Request Start: 07-10-2022 End: 07-10-[address] Ivette Grimes Work Phone: [facility] Start: 07-03-2022 ambulatory Tara alcantar APRN.MAINTAINER OPERATOR Work Phone: Neurology Comment on above: Medication Question Start: 06-28-2022 End: 06-28-[address] Ivette Grimes Work Phone: [facility] Start: 06-22-2022 Refill Ivette Grimes MD Work Phone: [facility] Comment on above: Refill Request Start: 06-07-2022 End: 06-07-2022 Patient encounter procedure Tara Gillette APRN.MAINTAINER OPERATOR Work Phone: Neurology Comment on above: Intractable migraine without aura and without status migrainosus (Primary Dx); Medication overuse headache; LETITIA (obstructive sleep apnea); Class 3 severe obesity with body mass index (BMI) of 45.0 to 49.9 in adult, unspecified obesity type, unspecified whether serious comorbidity present (HCC) Start: 06-07-2022 Telephone encounter Tara Herndon APRN.MAINTAINER OPERATOR Work Phone: Neurology Comment on above: Orders Start: 06-05-2022 ambulatory Ivette guzman MD Work Phone: Neurology Comment on above: Labs Start: 06-05-2022 E-mail encounter fro m caregiver Ivette Grimes MD Work Phone: [facility] Start: 06-05-[address] Luz Grimes Work Phone: [facility] Start: 06-04-2022 End: 06-04-[address] Ivette Grimes Work Phone: [facility] Start: 05-29-2022 Telephone encounter Tara Herndon APRN.MAINTAINER OPERATOR Work Phone: Neurology Comment on above: Appointment Start: 05-29-2022 End: 05-29-[address] Ivette Grimes Work Phone: [facility] Start: 05-24-2022 End: 05-24-2022 ambulatory ADELINA Cedeno YVES Facility:[facility] Start: 05-24-2022 End: 05-24-2022 Patient encounter procedure Adelina Marinelli POULTRY PATHOLOGIST.MAINTAINER OPERATOR Work Phone: [facility] Comment on above: Chronic left shoulde r pain (Primary Dx); Adhesive capsulitis of left shoulder; Primary osteoarthritis of left shoulder; Myofascial pain Start: 05-14-2022 End: 05-14-[address] Ivette Grimes Work Phone: [facility] Start: 05-11-2022 Telephone encounter Elle Rasheed MD Work Phone: [facility] Comment on above: Procedure Follow Up Start: 05-10-2022 End: 05-10-2022 ambulatory ELLE RASHEED Facility:[facility] Start: 05-10-2022 End: 05-10-2022 ambulatory Elle Rasheed MD Work Phone: [facility] Comment on above: Procedure Start: 05-10-2022 End: 05-10-2022 Patient encounter procedure Elle Rasheed MD Work Phone: [facility] Start: 05-08-2022 ambulatory Ivette Grimes MD Work Phone: [facility] Start: 05-08-2022 Follow-up encounter Ivette Grimes MD Work Phone: [facility] [place] Comment on above: Follow up from last appointment Start: 05-04-2022 End: 05-04-[address] 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 Ivette Grimes Work Phone: [facility] Start: 04-19-2022 ambulatory Ivette Grimes MD Work Phone: [facility] Comment on above: Lyrica Start: 04-17-2022 End: 04-17-[address] Ivette Grimes Work Phone: [facility] Start: 04-16-2022 Refill Ivette Grimes MD Work Phone: [facility] Comment on above: Refill Request [employer] Start: 04-09-2022 End: 04-09-2022 Patient encounter procedure Ivette Price MD Work Phone: Neurology Comment on above: Intractable migraine without aura and without status migrainosus (Primary Dx); Medication overuse headache; LETITIA (obstructive sleep apnea); Class 3 severe obesity with body mass index (BMI) of 45.0 to 49.9 in adult, unspecified obesity type, unspecified whether serious comorbidity present ([facility]) Start: 04-05-2022 Refill Ivette Grimes MD Work Phone: [facility] Comment on above: Refill Request Start: 04-03-2022 End: 04-03-[address] Ivette Grimes Work Phone: [facility] Start: 03-30-2022 Refill Ivette Grimes MD Work Phone: [facility] [place] Comment on above: Refill Request Start: 03-29-2022 Telephone encounter Elle Rasheed MD Work Phone: [facility] Comment on above: Injections Start: 03-29-2022 End: 03-29-2022 ambulatory ELLE RASHEED Facility:[facility] Start: 03-29-2022 End: 03-29-2022 Patient encounter procedure Elle Rasheed MD Work Phone: [facility] Comment on above: Myofascial pain (Carolyn alyssa Dx); Chronic left shoulder pain; Neuropathic pain; Adhesive capsulitis of left shoulder; Primary osteoarthritis of left shoulder Start: 03-16-2022 Refill Ivette Grimes MD Work Phone: [facility] [place] Comment on above: Refill Request Start: 03-03-2022 Refill Krystle Carroll Jun on PA-C Work Phone: [facility] [place] Comment on above: Refill Request Start: 02-28-2022 End: 02-28-2022 Patient encounter procedure Ivette Grimes MD Work Phone: [facility] [place] Comment on above: Upper back pain (Carolyn [...] Ivette Grimes MD Work Phone: [facility] [place] Comment on above: Refill Request Start: 02-19-2022 E-mail encounter fro m caregiver Ivette Price Jr., MD Work Phone: [facility] Start: 02-19-2022 Patient encounter procedure Ivette Price MD Work Phone: Neurology Comment on above: Request an Appointme nt Start: 02-08-2022 Chart abstracting Ivette Martínez MD Work Phone: [facility] [place] Start: 02-07-2022 ambulatory Ivette Grimes MD Work Phone: [facility] Comment on above: Lab work Start: 02-07-2022 E-mail encounter fro m caregiver Ivette Grimes MD Work Phone: [facility] Start: 02-07-2022 Telephone encounter Ivette Grimes MD Work Phone: [facility] [place] Comment on above: Results Start: 02-07-2022 End: 02-07-[address] Ivette Grimes Work Phone: [facility] Start: 02-06-[address] Gerald Grimes Work Phone: [facility] Start: 02-06-2022 End: 02-06-[address] Ivette Grimes Work Phone: [facility] Start: 02-05-2022 ambulatory Ivette Grimes MD Work Phone: [facility] Comment on above: Lab work Start: 01-29-2022 Telephone encounter Elle Rasheed MD Work Phone: [facility] Comment on above: New Patient Start: 01-23-2022 End: 01-23-[address] Ivette Grimes Work Phone: [facility] Start: 01-09-2022 End: 01-09-[address] Ivette Grimes Work Phone: [facility] Start: 01-09-2022 Non-patient / Non-visit Dr. Regina Grimes Work Phone: [facility] Start: 01-09-2022 End: 01-09-[address] Ivette Grimes Work Phone: [facility] Start: 01-01-2022 End: 01-01-[address] Ivette Grimes Work Phone: [facility] Start: 12-26-2021 End: 12-26-[address] Ivette Grimes Work Phone: [facility] Start: 11-29-2021 End: 11-29-[address] Ivette Grimes Work Phone: [facility] Start: 11-23-2021 End: 11-23-[address] Ivette Grimes Work Phone: [facility] Start: 11-21-2021 End: 11-21-[address] Ivette Grimes Work Phone: [facility] Start: 11-09-2021 End: 11-09-[address] Ivette Grimes Work Phone: [facility] Start: 10-24-2021 End: 10-24-[address] Ivette Grimes Work Phone: [facility] Start: 12-06-2012 End: 02-22-2014 Patient encounter status Stephanie Paz POULTRY PATHOLOGIST.MAINTAINER OPERATOR Work Phone: [facility] Start: 01-23-2010 End: 02-22-2014 Patient encounter status Stephanie Paz POULTRY PATHOLOGIST.MAINTAINER OPERATOR Work Phone: [facility] Procedures Date Procedure Procedure Detail Performing Clinician Start: 07-23-2025 Mean corpuscular hem oglobin concentration determination Dr. Ivette Grimes MD Work Phone: Start: 07-23-[address] Regina Grimes MD Work Phone: Start: 07-23-2025 Nucleated red blood cell count procedure Dr. Ivette Grimes MD Work Phone: Start: 07-23-2025 Platelet mean volume determination Dr. Ivette Grimes MD Work Phone: Start: 07-23-2025 Total iron binding c apacity measurement Dr. Ivette Grimes MD Work Phone: Start: 07-07-[address] Ivette Grimes MD Work Phone: Start: 07-07-2025 Flow cytometry cell surf marker techl only 1st Dr. Ivette Grimes MD Work Phone: Start: 07-07-2025 Mean corpuscular hem oglobin concentration determination Dr. Ivette Grimes MD Work Phone: Start: 07-07-[address] Regina Grimes MD Work Phone: Start: 07-07-2025 Neutrophil percent differential count Dr. Ivette Grimes MD Work Phone: Start: 07-07-2025 Platelet mean volume determination Dr. Ivette Grimes MD Work Phone: Start: 07-06-[address] Ivette Grimes MD Work Phone: Start: 07-06-2025 Measurement of occul t blood in stool specimen using immunoassay Dr. Ivette Grimes MD Work Phone: Start: 07-06-2025 Nucleated red blood cell count procedure Dr. Ivette Grimes MD Work Phone: Start: 07-06-2025 Serum inorganic phos phate measurement Dr. Ivette Grimes MD Work Phone: Start: 07-05-[address] Ivette Grimes MD Work Phone: Start: 07-05-2025 CT of abdomen and pe lvis without contrast Dr. Ivette Grimes MD Work Phone: Start: 07-05-2025 Osmolality measureme nt, serum Dr. Ivette Grimes MD Work Phone: Start: 07-05-2025 Total iron binding c apacity measurement Dr. Ivette Grimes MD Work Phone: Start: 07-05-2025 X-ray of chest, PA a nd lateral views Dr. Ivette Grimes MD Work Phone: Start: 07-05-2025 Urine microscopy: red cells Dr. Ivette Grimes MD Work Phone: Start: 07-05-2025 Urnls dip stick/tabl et reagent auto microscopy Dr. Ivette Grimes MD Work Phone: Start: 07-05-2025 Venous oxygen satura tion measurement Dr. Ivette Grimes MD Work Phone: Start: 07-05-[address] Ivette Grimes MD Work Phone: Start: 07-05-2025 Serum inorganic phos phate measurement Dr. Ivette Grimes MD Work Phone: Start: 07-05-[address] Gerald Grimes MD Work Phone: Start: 07-05-[address] Gerald Grimes MD Work Phone: Start: 06-23-2025 Procedure on shoulder joint Dr. Ivette Grimes MD Work Phone: Start: 06-09-2025 Hemoglobin A1c/Hemoglobin.total in Blood [facility] Start: 06-09-[address] (FOR REMOTE [facility] USE) [facility] Provider Start: 06-05-[address] e measurement Dr. Ivette Grimes MD Work Phone: Start: 06-05-2025 Mean corpuscular hem oglobin concentration determination Dr. Ivette Grimes MD Work Phone: Start: 06-05-[address] Regina Grimes MD Work Phone: Start: 06-05-2025 Nucleated red blood cell count procedure Dr. Ivette Grimes MD Work Phone: Start: 06-05-2025 Platelet mean volume determination Dr. Ivette Grimes MD Work Phone: Start: 06-05-2025 Serum inorganic phos phate measurement Dr. Ivette Grimes MD Work Phone: Start: 06-05-2025 Total cholesterol:HD L ratio measurement Dr. Ivette Grimes MD Work Phone: Start: 06-05-[address] Ivette Grimes MD Work Phone: [...] brain brain stem w/o contrast material Ivette Price MD Work Phone: Start: 02-08-2023 Ultrasonography of [...] ev cleared fda spec home use Elle Rasheed MD Work Phone: Start: 05-04-2022 X-ray of chest posteroanterior view Dr. Ivette Grimes Work Phone: Start: 03-29-2022 Adult depression scr eening assessment Elle Rasheed MD Work Phone: Start: 02-07-2022 Hemoglobin A1c/Hemoglobin.total in Blood [facility] Start: 02-07-2022 Lipid panel [facility] Provid er Start: 02-07-2022 MICROALBUMIN/CREATIN INE UR W RATIO (EXTERNAL) [facility] Start: 02-07-2022 Thyrotropin [Units/v olume] in Serum or Plasma [facility] Start: 11-29-2021 MRI of lumbar spine Dr. Ivette Grimes Work Phone: Start: 10-06-2021 Adult depression scr eening assessment Elle Rasheed MD Work Phone: Start: 09-05-2017 End: 09-05-2017 [...] 1-2 regions Bibiana Rehman [place] Work Phone: Plan of Treatment Date Care Activity Detail Author Start: 07-15-2026 Annual PCP Team Chronic Disease Visit Annual PCP Team Chronic Disease Visit [facility] Start: 06-07-2026 Annual PCP Team Chronic Disease Visit Annual PCP Team Chronic Disease Visit [facility] Start: 05-03-2026 Influenza vaccination Influenza Vaccine (#1) [place] [facility] parikh Comment on above: Postponed from 07/05/2025 (Declined at t his time) Start: 03-02-2026 Annual PCP Team Chronic Disease Visit Annual PCP Team Chronic Disease Visit [facility] Start: 02-04-2026 Glaucoma screening Dilated Retinal Exam [facility] Start: 01-22-2026 Annual PCP Team Chronic Disease Visit Annual PCP Team Chronic Disease Visit [facility] Start: 01-22-2026 BP Controlled (<130/80) BP Controlled (<130/80) [facility] in Start: 01-22-2026 Depression Screening Depression Screening [facility] Start: 12-11-2025 Annual PCP Team Chronic Disease Visit Annual PCP Team Chronic Disease Visit [facility] Start: 12-10-2025 Hemoglobin A1c measurement HbA1C [facility] timmy Start: 10-19-2025 Annual PCP Team Chronic Disease Visit Annual PCP Team Chronic Disease Visit [facility] Start: 09-24-2025 Annual PCP Team Chronic Disease Visit Annual PCP Team Chronic Disease Visit [facility] Start: 08-26-2025 End: 08-26-2025 ambulatory 08/26/2025 9:40 AM EDT [facility] [address] [place] [address] Ivette Grimes MD [address] [place] [address] Well check [facility] Medicine [facility] Comment on above: Well check Start: 08-05-2025 Annual PCP Team Chronic Disease Visit Annual PCP Team Chronic Disease Visit [facility] Start: 08-05-2025 BP Controlled (<130/80) BP Controlled (<130/80) [facility] in Start: 08-05-2025 Covid-19 Vaccine ( season) Covid-19 Vaccine ( season) [facility] [facility] Comment on above: Postponed from 07/05/2024 (Declined at t his time) Start: 08-05-2025 Diabetic foot examination Diabetic Foot Exam [facility] Start: 08-05-2025 Pneumococcal vaccination Pneumococcal Vaccine (2 of 2 - PCV) [facility] Comment on above: Postponed from 07/28/2020 (Declined at t his time) Start: 08-05-2025 Urine microalbumin profile DTaP,Tdap,Td Vaccine (2 - Td or Tdap) [facility] Comment on above: Postponed from 06/01/2023 (Declined at t his time) Start: 08-04-2025 End: 08-04-2025 Patient encounter procedure 08/04/2025 4:30 PM EDT Office Visit Neurology [address] [place] [address] Fatuma Beckford PA-C [address] [facility], [place] [id number] botox Neurology Comment on above: botox Start: 08-03-2025 End: 08-03-2025 Patient encounter procedure 08/03/2025 2:20 PM EDT Office Visit OB/Gynecology [address] [place] [address] Galina Camacho MD [address] [place] [address] annual with pap OB/Gynecology Comment on above: annual with pap Start: 07-31-2025 Hemoglobin A1c measurement HbA1C [facility] Start: 07-19-2025 End: 07-19-2025 Patient encounter procedure 07/19/2025 11:00 AM EDT Office Visit [facility] [place] [address] [place] [address] Ivette Grimes MD [address] [facility] [place] [address] 07-07 ICU Hospital follow up [facility] [place] Comment on above: 07-07 ICU Hospital follow up [facility] Start: 07-08-2025 End: 10-07-2025 Microalbumin/Creatinine [Mass Ratio] in Urine ALBUMIN/CREATININE RATIO, URINE Lab Routine Type 2 diabetes mellitus with microalbuminuria, with long-term current use of insulin (HCC) Expected: 07/08/2025, Expires: 10/07/2025 [facility] Comment on above: Expected: 07/08/2025, Expires: Start: 07-07-2025 Patient discharge [facility] Start: 07-07-2025 Care planning and problem solving actions [facility] Start: 07-06-2025 [facility] Start: 07-06-2025 Serum inorganic phosphate measurement [facility] Start: 07-06-2025 Application of intermittent pneumatic compression device [facility] Start: 07-05-2025 Following clinical pathway protocol [facility] Start: 07-05-2025 Assessment of risk of venous thromboembolism [facility] Start: 07-05-2025 Care regimes management [facility] Start: 07-05-2025 Consultation [facility] Start: 07-05-2025 Continuous pulse oximetry [facility] Start: 07-05-2025 Elevation of head of bed [facility] Start: 07-05-2025 Fall prevention [facility] Start: 07-05-2025 Incentive spirometry [facility] Start: 07-05-2025 Inhalation therapy procedure [facility] Start: 07-05-2025 Insertion of catheter into peripheral vein [facility] Start: 07-05-2025 Introduction of urinary catheter [facility] Start: 07-05-2025 Lab findings surveillance [facility] Start: 07-05-2025 Measuring intake and output [facility] Start: 07-05-2025 Methicillin resistant Staphylococcus aureus screening test [facility] Start: 07-05-2025 Nil by mouth [facility] Start: 07-05-2025 Notification of physician [facility] Start: 07-05-2025 Oxygen therapy [facility] Start: 07-05-2025 Patient referral to dietitian [facility] Start: 07-05-2025 Providing care according to standard [facility] Start: 07-05-2025 Provision of activity privileges [facility] Start: 07-05-2025 Referral to service [facility] Start: 07-05-2025 Vital signs measurements [facility] Start: 07-05-2025 End: 07-05-2025 [facility] Start: 07-05-2025 Dual pressure spontaneous ventilation support [facility] Start: 07-05-2025 Measurement of occult blood in stool specimen using immunoassay [facility] Start: 07-05-2025 Verification routine [facility] Start: 07-05-2025 Admission procedure [facility] Start: 07-05-2025 [facility] Start: 07-05-2025 End: 07-06-2025 [facility] Start: 07-05-2025 Bacteria identified in Blood by Culture Blood Culture [facility] Start: 07-05-2025 Bacteria identified in Urine by Culture Urine Culture [facility] Start: 07-05-2025 Blood culture Blood Culture [facility] Start: 07-05-2025 Influenza vaccination Influenza Vaccine (#1) [facility] Start: 07-05-2025 End: 10-04-2025 Urinalysis complete panel - Urine URINALYSIS, WITH MICROSCOPIC Lab Routine Flank pain Proteinuria, unspecified type Expected: 07/05/2025, Expires: 10/04/2025 [facility] Comment on above: Expected: 07/05/2025, Expires: Start: 07-04-2025 Hepatitis B screening Urine Albumin:Creatinine Ratio [facility] Start: 07-04-2025 Hepatitis B surface antibody level LDL Cholesterol [facility] Start: 07-03-2025 Annual PCP Team Chronic Disease Visit Annual PCP Team Chronic Disease Visit [facility] Start: 06-23-2025 Anes arthrs humeral h/n strnclav & shoulder nos [facility] Start: 06-23-2025 Anterior decompression of shoulder joint [facility] Start: 06-23-2025 Arthroscopy shoulder surg debridement limited [facility] Start: 06-23-2025 Arthroscopy shoulder w/coracoacrm ligmnt release BRY ARTHRS SRG DECOMPRESSION [facility] Start: 06-23-2025 Injection aa&/strd brachial plexus [facility] Start: 06-23-2025 Patient discharge [facility] Start: 06-23-2025 Application of ice collar, cap or bag [facility] Start: 06-23-2025 Assessment of risk of venous thromboembolism [facility] Start: 06-23-2025 Catheterization of vein [facility] Start: 06-23-2025 Continuous positive airway pressure ventilation treatment [facility] Start: 06-23-2025 Following clinical pathway protocol [facility] Start: 06-23-2025 Incentive spirometry [facility] Start: 06-23-2025 Introduction of urinary catheter [facility] Start: 06-23-2025 Vital signs measurements [facility] Start: 06-23-2025 [facility] Start: 06-10-2025 Electrocardiographic procedure [facility] Start: 06-07-2025 End: 09-06-2025 Cholesterol in LDL [Mass/volume] in Serum or Plasma LDL CHOLESTEROL DIR Lab Routine Type 2 diabetes mellitus with microalbuminuria, with long-term current use of insulin (HCC) Essential (primary) hypertension Expected: 06/07/2025, Expires: 09/06/2025 [facility] Comment on above: Expected: 06/07/2025, Expires: Start: 06-07-2025 End: 09-06-2025 Hemoglobin A1c in Blood HEMOGLOBIN A1C Lab Routine Type 2 diabetes mellitus with microalbuminuria, with long-term current use of insulin (HCC) Expected: 06/07/2025, Expires: 09/06/2025 [facility] Work Phone: Comment on above: Expected: 06/07/2025, Expires: Start: 06-03-2025 Annual PCP Team Chronic Disease Visit Annual PCP Team Chronic Disease Visit [facility] Start: 05-03-2025 Influenza vaccination Influenza Vaccine (#1) [facility] Comment on above: Postponed from 07/05/2024 (Declined at t his time) Start: 04-21-2025 End: 04-21-2025 Patient encounter procedure 04/21/2025 2:00 PM EDT Office Visit Neurology [address] [id number] Kristen Enriquez, POULTRY PATHOLOGIST.MAINTAINER OPERATOR [address] [id number] botox Neurology Comment on above: botox Start: 03-09-2025 End: 03-09-2025 Patient encounter procedure 03/09/2025 7:25 AM EDT [facility] Neurology [address] [place] [id number] Amanda Arteaga PA-C [address] [place], [place] [id number] consult botox injection for headache Neurology Comment on above: consult botox injection for headache Start: 01-22-2025 End: 04-23-2025 Basic metabolic 2000 panel - Serum or Plasma BASIC METABOLIC PANEL Lab Routine Essential (primary) hypertension Expected: 01/22/2025, Expires: 04/23/2025 [facility] Comment on above: Expected: 01/22/2025, Expires: Start: 01-22-2025 End: 04-23-2025 Hemoglobin A1c in Blood HEMOGLOBIN A1C Lab Routine Type 2 diabetes mellitus with microalbuminuria, with long-term current use of insulin (HCC) Expected: 01/22/2025, Expires: 04/23/2025 [facility] Work Phone: Comment on above: Expected: 01/22/2025, Expires: Start: 01-01-2025 [facility] Start: 12-26-2024 BP Controlled (<130/80) BP Controlled (<130/80) [facility] Start: 12-25-2024 End: 12-25-2024 Patient encounter procedure 12/25/2024 10:15 AM EST Office Visit OB/Gynecology [address] [place], [place] [id number] Karol Mancera APRN.MAINTAINER OPERATOR [address] [place] [address] annual OB/Gynecology Comment on above: annual Start: 12-17-2024 End: 02-13-2025 ambulatory 12/17/2024 9:40 AM EST [facility] [address] [place] [address] Ivette Grimes MD [address] [place] [address] General [facility] Medicine [facility] Comment on above: General Start: 12-11-2024 End: 03-12-2025 Comprehensive metabolic 2000 panel - Serum or Plasma COMPREHENSIVE METABOLIC PANEL Lab Routine Hypokalemia Expected: 12/11/2024, Expires: 03/12/2025 [facility] Comment on above: Expected: 12/11/2024, Expires: Start: 12-09-2024 End: 12-09-2024 Patient encounter procedure 12/09/2024 2:20 PM EST Office Visit OB/Gynecology [address] [place] [address] Galina Camacho MD [address] [place] [address] Check up OB/Gynecology Comment on above: Check up Start: 12-09-2024 Annual PCP Team Chronic Disease Visit Annual PCP Team Chronic Disease Visit [facility] Start: 12-09-2024 BP Controlled (<130/80) BP Controlled (<130/80) [facility] Start: 12-09-2024 Covid-19 Vaccine () Covid-19 Vaccine () [facility] Comment on above: Postponed from 07/05/2023 (Declined at t his time) Start: 12-09-2024 Depression Screening Depression Screening [facility] Start: 11-11-2024 [facility] Start: 11-06-2024 Annual PCP Team Chronic Disease Visit Annual PCP Team Chronic Disease Visit [facility] Start: 10-20-2024 End: 10-20-2024 Patient encounter procedure 10/20/2024 2:20 PM EST Office Visit OB/Gynecology [address] [place] [address] Galina Camacho MD [address] [place] [address] Check up OB/Gynecology Comment on above: Check up Start: 09-13-2024 BP Controlled (<130/80) BP Controlled (<130/80) [facility] Start: 09-12-2024 Glaucoma screening Dilated Retinal Exam [facility] Start: 09-10-2024 End: 09-10-2024 Patient encounter procedure Neurology Comment on above: botox Start: 09-03-2024 End: 09-03-2024 Patient encounter procedure 09/03/2024 1:00 PM EDT Office Visit Neurology [address] [place] [place] [address] Fatuma Beckford PA-C [address] [facility] [place] [address] botox Neurology Comment on above: botox Start: 08-05-2024 Depression Screening Depression Screening [facility] Comment on above: Postponed from 2000 (Declined at t his time) Start: 08-05-2024 End: 08-05-2024 Patient encounter procedure 08/05/2024 8:00 AM EDT [facility] [place] [address] [facility] [place] [id number] Ivette Grimes MD [address] [facility] [place] [address] My health [facility] [place] Comment on above: My health Start: 07-15-2024 Annual PCP Team Chronic Disease Visit Annual PCP Team Chronic Disease Visit [facility] Start: 07-05-2024 Covid-19 Vaccine ( season) Covid-19 Vaccine ( season) [facility] Start: 07-05-2024 Covid-19 Vaccine ( season) Covid-19 Vaccine ( season) [facility] Start: 07-05-2024 Influenza [facility] Start: 07-03-2024 End: 10-02-2024 CBC W Auto Differential panel - Blood COMPLETE BLOOD COUNT AND DIFFERENTIAL Lab Routine Type 2 diabetes mellitus with microalbuminuria, with long-term current use of insulin (HCC) Expected: 07/03/2024, Expires: 10/02/2024 [facility] Work Phone: Comment on above: Expected: 07/03/2024, Expires: Start: 07-03-2024 End: 10-02-2024 Comprehensive metabolic 2000 panel - Serum or Plasma COMPREHENSIVE METABOLIC PANEL Lab Routine Type 2 diabetes mellitus with microalbuminuria, with long-term current use of insulin (HCC) Expected: 07/03/2024, Expires: 10/02/2024 [facility] Comment on above: Expected: 07/03/2024, Expires: Start: 07-03-2024 End: 10-02-2024 Hemoglobin A1c in Blood HEMOGLOBIN A1C Lab Routine Type 2 diabetes mellitus with microalbuminuria, with long-term current use of insulin (HCC) Expected: 07/03/2024, Expires: 10/02/2024 [facility] Comment on above: Expected: 07/03/2024, Expires: Start: 07-03-2024 End: 10-02-2024 Lipid 1996 panel - Serum or Plasma LIPID PANEL BASIC Lab Routine Type 2 diabetes mellitus with microalbuminuria, with long-term current use of insulin (HCC) Expected: 07/03/2024, Expires: 10/02/2024 [facility] Comment on above: Expected: 07/03/2024, Expires: Start: 07-03-2024 End: 10-02-2024 Microalbumin/Creatinine [Mass Ratio] in Urine ALBUMIN/CREATININE RATIO, URINE Lab Routine Type 2 diabetes mellitus with microalbuminuria, with long-term current use of insulin (HCC) Expected: 07/03/2024, Expires: 10/02/2024 [facility] Comment on above: Expected: 07/03/2024, Expires: Start: 06-06-2024 ANNUAL PCP TEAM CHRONIC DISEASE VISIT ANNUAL PCP TEAM CHRONIC DISEASE VISIT [facility] Start: 06-06-2024 COVID-19 VACCINE (4 - Moderna series) COVID-19 VACCINE (4 - Moderna series) [facility] Comment on above: Postponed from 12/13/2021 (Declined at t his time) Start: 06-06-2024 Diabetic foot examination [facility]abetic Foot Ex[facility] Start: 06-06-2024 Urine [facility]albumin profile [facility] Comment on above: Postponed from 06/01/2023 (Declined at t his time) Start: 06-05-2024 Hemoglobin A1c measurement HbA1C [facility] Start: 05-17-2024 BP CONTROLLED (<130/80) BP CONTROLLED (<130/80) [facility] Start: 03-26-2024 End: 03-26-2024 Patient encounter procedure 03/26/2024 10:30 AM EDT Office Visit Neurology [address] [place] [address] [place] [address] Fatuma Beckford PA-C [address] [facility] [place] [address] botox 4 of 4 Neurology Comment on above: botox 4 of 4 Start: 03-05-2024 BP CONTROLLED (<130/80) BP CONTROLLED (<130/80) [facility] Start: 03-05-2024 PNEUMOCOCCAL (2 - PCV) PNEUMOCOCCAL (2 - PCV) [facility] Comment on above: Postponed from 07/28/2020 (Declined at t his time) Start: 03-05-2024 Pneumococcal vaccination [facility] Comment on above: Postponed from 07/28/2020 (Declined at t his time) Start: 03-04-2024 Hepatitis B screening URINE ALBUMIN:CREATININE RATIO [facility] Start: 02-29-2024 ANNUAL PCP TEAM CHRONIC DISEASE VISIT ANNUAL PCP TEAM CHRONIC DISEASE VISIT [facility] Start: 02-04-2024 Bacteria identified in Urine by Culture [facility] Start: 02-04-2024 [facility] Start: 02-04-2024 [facility] Start: 02-01-2024 ANNUAL PCP TEAM CHRONIC DISEASE VISIT ANNUAL PCP TEAM CHRONIC DISEASE VISIT [facility] Start: 01-18-2024 ANNUAL PCP TEAM CHRONIC DISEASE VISIT ANNUAL PCP TEAM CHRONIC DISEASE VISIT [facility] Start: 01-05-2024 ANNUAL PCP TEAM CHRONIC DISEASE VISIT ANNUAL PCP TEAM CHRONIC DISEASE VISIT [facility] Start: 12-26-2023 ANNUAL PCP TEAM CHRONIC DISEASE VISIT ANNUAL PCP TEAM CHRONIC DISEASE VISIT [facility] Start: 12-18-2023 HPV TESTING HPV TESTING [facility] Start: 12-18-2023 PAP TESTING PAP TESTING [facility] Start: 12-18-2023 Screening for malignant neoplasm of cervix [facility] Start: 12-14-2023 ANNUAL PCP TEAM CHRONIC DISEASE VISIT ANNUAL PCP TEAM CHRONIC DISEASE VISIT [facility] Start: 12-07-2023 ANNUAL PCP TEAM CHRONIC DISEASE VISIT ANNUAL PCP TEAM CHRONIC DISEASE VISIT [facility] Start: 12-07-2023 End: 02-06-2024 CBC W Auto Differential panel - Blood CBC + DIFF Lab Routine Type 2 diabetes mellitus with microalbuminuria, with long-term current use of insulin (HCC) Expected: 12/07/2023, Expires: 02/06/2024 [facility] Work Phone: Comment on above: Expected: 12/07/2023, Expires: Start: 12-07-2023 End: 02-06-2024 Comprehensive metabolic 2000 panel - Serum or Plasma COMP METABOLIC PANEL Lab Routine Type 2 diabetes mellitus with microalbuminuria, with long-term current use of insulin (HCC) Expected: 12/07/2023, Expires: 02/06/2024 [facility] Work Phone: Comment on above: Expected: 12/07/2023, Expires: Start: 12-07-2023 End: 02-06-2024 Hemoglobin A1c in Blood HGB A1C Lab Routine Type 2 diabetes mellitus with microalbuminuria, with long-term current use of insulin (HCC) Expected: 12/07/2023, Expires: 02/06/2024 [facility] Work Phone: Comment on above: Expected: 12/07/2023, Expires: Start: 12-07-2023 End: 02-06-2024 Lipid 1996 panel - Serum or Plasma LIPID PANEL BASIC Lab Routine Type 2 diabetes mellitus with microalbuminuria, with long-term current use of insulin (HCC) Expected: 12/07/2023, Expires: 02/06/2024 [facility] Work Phone: Comment on above: Expected: 12/07/2023, Expires: 4 Start: 11-30-2023 ANNUAL PCP TEAM CHRONIC DISEASE VISIT ANNUAL PCP TEAM CHRONIC DISEASE VISIT [facility] Start: 11-27-2023 ANNUAL PCP TEAM CHRONIC DISEASE VISIT ANNUAL PCP TEAM CHRONIC DISEASE VISIT [facility] Start: 11-04-2023 Behavioral Health Screening Behavioral Health Screening [facility] Start: 11-04-2023 Depression Assessment Depression Assessment [facility] Start: 10-31-2023 BP CONTROLLED (<130/80) BP CONTROLLED (<130/80) [facility] Start: 10-27-2023 [facility] Start: 09-04-2023 ANNUAL PCP TEAM CHRONIC DISEASE VISIT ANNUAL PCP TEAM CHRONIC DISEASE VISIT [facility] Start: 09-04-2023 Hemoglobin A1c measurement HbA1C [facility] Start: 09-04-2023 Hemoglobin A1c/Hemoglobin.total in Blood HBA1C [facility] Start: 09-03-2023 ANNUAL PCP TEAM CHRONIC DISEASE VISIT ANNUAL PCP TEAM CHRONIC DISEASE VISIT [facility] Start: 08-10-2023 Mammography [facility] Start: 08-10-2023 Screening for malignant neoplasm of breast Mammogram Screening [facility] Start: 08-08-2023 Hepatitis B surface antibody level LDL CHOLESTEROL [facility] Start: 08-07-2023 Patient discharge [facility] Start: 08-06-2023 Telepractice consultation [facility] Start: 08-05-2023 End: 08-05-2023 [facility] Start: 08-05-2023 Following clinical pathway protocol [facility] Start: 08-05-2023 Assessment of risk of venous thromboembolism [facility] Start: 08-05-2023 Cardiac monitoring [facility] Start: 08-05-2023 Catheterization of vein [facility] Start: 08-05-2023 Continuous pulse oximetry [facility] Start: 08-05-2023 Elevation of head of bed [facility] Start: 08-05-2023 Exercises [facility] Start: 08-05-2023 Implementation of planned interventions [facility] Start: 08-05-2023 Insertion of catheter into peripheral vein [facility] Start: 08-05-2023 Measuring intake and output [facility] Start: 08-05-2023 Notification of physician [facility] Start: 08-05-2023 Oxygen therapy [facility] Start: 08-05-2023 Providing care according to standard [facility] Start: 08-05-2023 Referral to occupational therapist [facility] Start: 08-05-2023 Referral to service [facility] Start: 08-05-2023 Tobacco use cessation education [facility] Start: 08-05-2023 Vital signs measurements [facility] Start: 08-05-2023 Verification routine [facility] Start: 08-05-2023 Admission procedure [facility] Start: 08-05-2023 Oxygen therapy [facility] Start: 08-05-2023 [facility] Start: 08-05-2023 Inhalation therapy procedure [facility] Start: 08-05-2023 Patient referral to dietitian [facility] Start: 08-02-2023 3 comp foot exam completed DIABETIC FOOT EXAM [facility] Start: 08-02-2023 ANNUAL PCP TEAM CHRONIC DISEASE VISIT ANNUAL PCP TEAM CHRONIC DISEASE VISIT [facility] Start: 08-02-2023 Diabetic foot examination Diabetic Foot Exam [facility] Start: 07-05-2023 Covid-19 Vaccine ( season) Covid-19 Vaccine ( season) [facility] Start: 07-05-2023 Influenza vaccination [facility] Start: 06-07-2023 End: 08-07-2023 Cobalamin (Vitamin B12) [Mass/volume] in Serum or Plasma VITAMIN B12 BLOOD Lab Routine Memory loss Attention and concentration deficit Expected: 06/07/2023, Expires: 08/07/2023 [facility] Work Phone: Comment on above: Expected: 06/07/2023, Expires: 3 Start: 06-07-2023 End: 08-07-2023 Thyrotropin [Units/volume] in Serum or Plasma TSH BLD Lab Routine Memory loss Attention and concentration deficit Expected: 06/07/2023, Expires: 08/07/2023 [facility] Work Phone: Comment on above: Expected: 06/07/2023, Expires: 3 Start: 06-07-2023 End: 08-07-2023 Thyroxine (T4) free [Mass/volume] in Serum or Plasma T4 FREE/FREE THYROX Lab Routine Memory loss Attention and concentration deficit Expected: 06/07/2023, Expires: 08/07/2023 [facility] Work Phone: Comment on above: Expected: 06/07/2023, Expires: Start: 06-01-2023 Urine microalbumin profile [facility] Start: 05-01-2023 ANNUAL PCP TEAM CHRONIC DISEASE VISIT ANNUAL PCP TEAM CHRONIC DISEASE VISIT [facility] Start: 04-02-2023 [facility] Start: 03-29-2023 Adult depression screening assessment DEPRESSION SCREENING [facility] Start: 02-28-2023 End: 04-30-2023 ALBUMIN/CREAT RATIO RND UR ALBUMIN/CREAT RATIO RND UR Lab Routine Type 2 diabetes mellitus with microalbuminuria, with long-term current use of insulin (HCC) Expected: 02/28/2023, Expires: 04/30/2023 [facility] Work Phone: Comment on above: Expected: 02/28/2023, Expires: Start: 02-28-2023 ANNUAL PCP TEAM CHRONIC DISEASE VISIT ANNUAL PCP TEAM CHRONIC DISEASE VISIT [facility] Start: 02-28-2023 End: 04-30-2023 Basic metabolic 2000 panel - Serum or Plasma BASIC METABOLIC PNL Lab Routine Myalgia Expected: 02/28/2023, Expires: 04/30/2023 [facility] Work Phone: Comment on above: Expected: 02/28/2023, Expires: 3 Start: 02-28-2023 End: 04-30-2023 CBC W Auto Differential panel - Blood CBC + DIFF Lab Routine Myalgia Expected: 02/28/2023, Expires: 04/30/2023 [facility] Work Phone: Comment on above: Expected: 02/28/2023, Expires: 3 Start: 02-28-2023 End: 04-30-2023 Hemoglobin A1c in Blood HGB A1C Lab Routine Type 2 diabetes mellitus with microalbuminuria, with long-term current use of insulin (HCC) Expected: 02/28/2023, Expires: 04/30/2023 [facility] Work Phone: Comment on above: Expected: 02/28/2023, Expires: 3 Start: 02-28-2023 End: 04-30-2023 Iron and Iron binding capacity panel - Serum or Plasma IRON + TIBC Lab Routine Myalgia Expected: 02/28/2023, Expires: 04/30/2023 [facility] Work Phone: Comment on above: Expected: 02/28/2023, Expires: 3 Start: 02-28-2023 End: 04-30-2023 Magnesium [Mass/volume] in Serum or Plasma MAGNESIUM BLD Lab Routine Myalgia Expected: 02/28/2023, Expires: 04/30/2023 [facility] Work Phone: Comment on above: Expected: 02/28/2023, Expires: 3 Start: 02-07-2023 Hepatitis B screening URINE ALBUMIN:CREATININE RATIO [facility] Start: 02-07-2023 Hepatitis B surface antibody level LDL CHOLESTEROL [facility] Start: 02-06-2023 Hemoglobin A1c/Hemoglobin.total in Blood HBA1C [facility] Start: 01-25-2023 ANNUAL PCP TEAM CHRONIC DISEASE VISIT ANNUAL PCP TEAM CHRONIC DISEASE VISIT [facility] Start: 11-04-2022 DEPRESSION ASSESSMENT DEPRESSION ASSESSMENT [facility] Start: 10-16-2022 End: 12-16-2022 Thyrotropin [Units/volume] in Serum or Plasma TSH BLD Lab Routine Lightheadedness Expected: 10/16/2022, Expires: 12/16/2022 [facility] Work Phone: Comment on above: Expected: 10/16/2022, Expires: 3 Start: 10-06-2022 Adult depression screening assessment DEPRESSION SCREENING [facility] Start: 10-05-2022 Glaucoma screening Dilated Retinal Exam [facility] Start: 10-05-2022 Hepatitis C antibody, confirmatory test DILATED RETINAL EXAM [facility] Start: 09-04-2022 End: 11-04-2022 Basic metabolic 2000 panel - Serum or Plasma BASIC METABOLIC PNL Lab Routine Lightheadedness Expected: 09/04/2022, Expires: 11/04/2022 [facility] Work Phone: Comment on above: Expected: 09/04/2022, Expires: 3 Start: 09-04-2022 End: 11-04-2022 CBC W Auto Differential panel - Blood CBC + DIFF Lab Routine Lightheadedness Expected: 09/04/2022, Expires: 11/04/2022 [facility] Work Phone: Comment on above: Expected: 09/04/2022, Expires: 3 Start: 08-16-2022 Patient referral [facility] Work Phone: Start: 08-09-2022 Hemoglobin A1c/Hemoglobin.total in Blood HBA1C [facility] Start: 08-02-2022 End: 10-02-2022 Hemoglobin A1c in Blood HGB A1C Lab Routine Type 2 diabetes mellitus with microalbuminuria, with long-term current use of insulin (HCC) Expected: 08/02/2022, Expires: 10/02/2022 [facility] Work Phone: Comment on above: Expected: 08/02/2022, Expires: 2 Start: 08-02-2022 End: 10-02-2022 Lipid 1996 panel - Serum or Plasma LIPID PANEL BASIC Lab Routine Type 2 diabetes mellitus with microalbuminuria, with long-term current use of insulin (HCC) Expected: 08/02/2022, Expires: 10/02/2022 [facility] Work Phone: Comment on above: Expected: 08/02/2022, Expires: 2 Start: 08-02-2022 End: 10-02-2022 Thyrotropin [Units/volume] in Serum or Plasma TSH BLD Lab Routine Fatigue, unspecified type Expected: 08/02/2022, Expires: 10/02/2022 [facility] Work Phone: Comment on above: Expected: 08/02/2022, Expires: 2 Start: 07-20-2022 3 comp foot [facility] Start: 07-05-2022 Influenza vaccination INFLUENZA (#1) [facility] Start: 06-28-2022 Hepatitis B surface antibody level LDL CHOLESTEROL [facility] Start: 2022 Mammography MAMMOGRAM [facility] Start: 06-05-2022 End: 08-05-2022 Bacteria identified in Urine by Culture URINE CULTURE Microbiology Routine Proteinuria, unspecified type Leukocytosis, unspecified type Expected: 06/05/2022, Expires: 08/05/2022 [facility] Work Phone: Comment on above: Expected: 06/05/2022, Expires: 2 Start: 06-05-2022 End: 08-05-2022 Urinalysis complete panel - Urine URINALYSIS, WITH MICROSCOPIC Lab Routine Proteinuria, unspecified type Leukocytosis, unspecified type Expected: 06/05/2022, Expires: 08/05/2022 [facility] Work Phone: Comment on above: Expected: [...] Medication overuse headache Expected: 04/09/2022, Expires: 06/09/2022 [facility] Work Phone: Comment on above: Expected: [...] Medication overuse headache Expected: 04/09/2022, Expires: 06/09/2022 [facility] Work Phone: Comment on above: Expected: 04/09/2022, Expires: 2 Start: 12-26-2021 Patient referral [facility] Work Phone: Start: 12-13-2021 COVID-19 VACCINE (4 - Booster for Moderna series) COVID-19 VACCINE (4 - Booster for Moderna series) [facility] Start: 12-13-2021 COVID-19 VACCINE (4 - Moderna series) COVID-19 VACCINE (4 - Moderna series) [facility] Start: 11-04-2021 DEPRESSION ASSESSMENT DEPRESSION ASSESSMENT [facility] Start: 08-11-2021 Hepatitis B screening URINE ALBUMIN:CREATININE RATIO [facility] Start: 07-15-2021 Hemoglobin A1c/Hemoglobin.total in Blood HBA1C [facility] Start: 07-28-2020 PNEUMOCOCCAL (2 - PCV) PNEUMOCOCCAL (2 - PCV) [facility] Start: 07-28-2020 Pneumococcal vaccination Pneumococcal Vaccine (2 of 2 - PCV) [facility] Start: 09-24-2017 End: 09-24-2017 Appointment Appointment [facility] [...] End: 05-09-2017 Physical Therapy General Physical Therapy [facility] [address] [place] [address], [id number] [facility] Work Phone: Start: 2001 HEPATITIS B (1 of 3 - Risk 3-dose series) HEPATITIS B (1 of 3 - Risk 3-dose series) [facility] Start: 2000 BP CONTROLLED (<130/80) BP CONTROLLED (<130/80) [facility] in Start: 2000 Depression Screening Depression Screening [facility] Start: 1982 HEPATITIS B (1 of 3 - 3-dose series) HEPATITIS B (1 of 3 - 3-dose series) [facility] Alanine aminotransfe rase [Enzymatic activity/volume] in Serum or Plasma [facility] Albumin [Mass/volume ] in Serum or Plasma [facility] Alkaline phosphatase [Enzymatic activity/volume] in Serum or Plasma [facility] Anion gap in Serum or Plasma [facility] Bilirubin, total measurement [facility] BUN/Creatinine ratio [facility] Calcium [Mass/volume ] in Serum or Plasma [facility] Carbon dioxide, tota l [Moles/volume] in Central venous blood [facility] Chiropractic manipulation [facility] Creatinine [Mass/vol ume] in Serum or Plasma [facility] End: 03-29-2024 Ct soft tissue neck w/contrast material CT NECK SOFT TISSUE W IVCON Radiology Routine Soft tissue mass 1 Occurrences starting 02/28/2023 until 03/29/2024 [facility] Work Phone: Comment on above: 1 Occurrences starting 02/28/2023 until 03/29/2024 End: 12-17-2025 DBT Breast - bilateral screening FLASH SCREENING W [facility]QUELIN Radiology Routine Encounter for screening mammogram for breast cancer 1 Occurrences starting 11/17/2024 until 12/17/2025 [facility] Work Phone: Comment on above: 1 Occurrences starting 11/17/2024 until 12/17/2025 End: 07-07-2026 DBT Breast - bilateral screening FLASH SCREENING W [facility]QUELIN Radiology Routine Encounter for screening mammogram for breast cancer 1 Occurrences starting 06/07/2025 until 07/07/2026 [facility] Comment on above: 1 Occurrences starting 06/07/2025 until 07/07/2026 End: 09-04-2023 ECG COMPLETE ECG COMPLETE ECG Routine Prolonged Q-T interval on ECG 1 Occurrences starting 09/04/2022 until 09/04/2023 [facility] Work Phone: Comment on above: 1 Occurrences starting 09/04/2022 until 09/04/2023 End: 03-05-2024 EPIL EEG ROUTINE EPIL EEG ROUTINE NEUROLOGY Routine Altered awareness, transient 1 Occurrences starting 03/05/2023 until 03/05/2024 [facility] Work Phone: Comment on above: 1 Occurrences starting 03/05/2023 until 03/05/2024 Erythrocyte mean cor puscular volume determination [facility] Glucose [Mass/volume ] in Serum or Plasma [facility] Hematocrit [Volume F raction] of Blood [facility] Hemoglobin [Mass/vol ume] in Blood [facility] Hemoglobin A1c/Hemoglobin.total in Blood [facility] Hemoglobin A1c/Hemoglobin.total in Blood [facility] Injection aa&/strd suprascapular nerve INJECT NERV BLCK,SUPRASCAP N. Procedures Routine Adhesive capsulitis of left shoulder Primary osteoarthritis of left shoulder Ordered: 05/10/2022 [facility] Work Phone: Comment on above: Ordered: 05/10/2022 Iron [Mass/mass] in Unspecified specimen [facility] Iron saturation [Mas s Fraction] in Serum or Plasma [facility] Leukocytes [#/volume ] in Blood [facility] Magnesium [Mass/volu me] in Serum or Plasma [facility] Work Phone: Magnesium measurement [facility] End: 07-05-2024 FLASH SCREENING FLASH SCREENING Radiology Routine Encounter for screening mammogram for malignant neoplasm of breast 1 Occurrences starting 06/06/2023 until 07/05/2024 [facility] Work Phone: Comment on above: 1 Occurrences starting 06/06/2023 until 07/05/2024 End: 01-07-2025 FLASH SCREENING W JAQUELIN FLASH SCREENING W JAQUELIN Radiology Routine Encounter for screening mammogram for malignant neoplasm of breast 1 Occurrences starting 12/09/2023 until 01/07/2025 [facility] Work Phone: Comment on above: 1 Occurrences starting 12/09/2023 until 01/07/2025 Mean corpuscular hem oglobin concentration determination [facility] Mean corpuscular hem oglobin determination [facility] Measurement of renal function [facility] Methicillin resistan t Staphylococcus aureus (MRSA) DNA [Presence] in Nose by ALLYSON with probe detection [facility] MR Lower Extremity Joint [facility] End: 01-06-2024 Mri brain brain stem w/o contrast material MRI BRAIN WO IVCON Radiology Routine Post concussion syndrome Intractable acute post-traumatic headache Dizziness Cervicalgia 1 Occurrences starting 12/07/2022 until 01/06/2024 [facility] Work Phone: Comment on above: 1 Occurrences starting 12/07/2022 until 01/06/2024 End: 01-06-2024 Mri spinal canal cervical w/o contrast matrl MRI CERVICAL SPINE WO IVCON Radiology Routine Post concussion syndrome Intractable acute post-traumatic headache Dizziness Cervicalgia 1 Occurrences starting 12/07/2022 until 01/06/2024 [facility] Work Phone: Comment on above: 1 Occurrences starting 12/07/2022 until 01/06/2024 Neutrophil count [facility] Neutrophil percent differential count [facility] Patient Education [facility] Work Phone: Patient referral [facility] Work Phone: Platelets [#/volume] in Blood [facility] Potassium measurement [facility] Red blood cell count [facility] Red cell distributio n width determination [facility] Serum chloride measurement [facility] Sodium measurement [facility] Total iron binding c apacity measurement [facility] Total protein measurement [facility] Urea nitrogen [Mass/ volume] in Serum or Plasma [facility] Urine culture [facility] End: 03-01-2024 US HEAD/NECK SOFT TISSUE OTHER US HEAD/NECK SOFT TISSUE OTHER Radiology Routine Soft tissue mass 1 Occurrences starting 01/31/2023 until 03/01/2024 [facility] Work Phone: Comment on above: 1 Occurrences starting 01/31/2023 until 03/01/2024 US Heart [facility] Work Phone: End: 08-20-2025 XR Chest PA and Lateral XR CHEST 2V FRONTAL/LAT Radiology Routine Cough, unspecified type 1 Occurrences starting 07/21/2024 until 08/20/2025 [facility] Work Phone: Comment on above: 1 Occurrences starting 07/21/2024 until 08/20/2025 End: 01-10-2026 XR Chest PA and Lateral XR CHEST 2V FRONTAL/LAT Radiology STAT Sinobronchitis 1 Occurrences starting 12/11/2024 until 01/10/2026 [facility] Work Phone: Comment on above: 1 Occurrences starting 12/11/2024 until 01/10/2026 End: 05-31-2023 XR RIBS/CHEST 3V AP RIB/OBLS/CXR LEFT XR RIBS/CHEST 3V AP RIB/OBLS/CXR LEFT Radiology Routine Rib pain 1 Occurrences starting 05/01/2022 until 05/31/2023 [facility] Work Phone: Comment on above: 1 Occurrences starting 05/01/2022 until 05/31/2023 [facility] Immunizations Immunization Date Immunization Notes Care Provider [facility] 09-08-2024 influenza, seasonal, injectable, preservative free Dr. Ivette Grimes MD Work Phone: [facility] 09-08-2024 influenza virus vacc ine, unspecified formulation Ivette Grimes MD Work Phone: [facility] 09-23-2023 influenza virus vacc ine, unspecified formulation Ivette Grimes MD Work Phone: [facility] 09-19-2023 influenza, injectabl e, quadrivalent, preservative free Self Referred [facility] 08-06-2022 influenza, injectabl e, quadrivalent, preservative free Dr. Ivette Grimes Work Phone: [facility] 08-06-2022 influenza, seasonal, injectable Ivette Grimes MD Work Phone: [facility] 08-06-2022 influenza virus vacc ine, unspecified formulation Ivette Grimes MD Work Phone: [facility] 10-18-2021 Covid (Moderna) Dr. Ivette Grimes Work Phone: [facility] 08-01-2021 influenza virus vacc ine, unspecified formulation Elle Rasheed MD Work Phone: [facility] 08-01-2021 influenza, injectabl e, quadrivalent, preservative free Dr. Ivette Grimes Work Phone: [facility] 08-01-2021 influenza, seasonal, injectable Dr. Ivette Grimes Work Phone: [facility] 08-01-2021 influenza, seasonal, injectable, preservative free Ivette Grimes MD Work Phone: [facility] 11-29-2020 COVID-19 vaccine, fu ll dose (MODERNA) Elle Rasheed MD Work Phone: [facility] 11-01-2020 Covid (Moderna) Dr. Ivette Grimes Work Phone: [facility] 10-31-2020 COVID-19 vaccine, fu ll dose (MODERNA) Elle Rasheed MD Work Phone: [facility] 08-02-2020 influenza, injectabl e, quadrivalent, preservative free Dr. Ivette Grimes Work Phone: [facility] 08-02-2020 influenza, seasonal, injectable Dr. Ivette Grimes Work Phone: [facility] 08-02-2020 influenza, seasonal, injectable, preservative free Ivette Grimes MD Work Phone: [facility] 08-01-2020 influenza virus vacc ine, unspecified formulation Elle Rasheed MD Work Phone: [facility] 07-30-2019 influenza, injectabl e, quadrivalent, contains preservative Ivette Grimes MD Work Phone: [facility] 07-30-2019 influenza, injectabl e, quadrivalent, preservative free Dr. Ivette Grimes Work Phone: [facility] 07-30-2019 influenza, seasonal, injectable Dr. Ivette Grimes Work Phone: [facility] 07-28-2019 pneumococcal polysaccharide vaccine, 23 valent Elle Rasheed MD Work Phone: [facility] 08-01-2018 influenza, injectabl e, quadrivalent, preservative free Dr. Ivette Grimes Work Phone: [facility] 08-01-2018 influenza, seasonal, injectable Dr. Ivette Grimes Work Phone: [facility] 08-07-2017 influenza, seasonal, injectable Elle Rasheed MD Work Phone: [facility] 07-31-2017 influenza, injectabl e, quadrivalent, preservative free Dr. Ivette Grimes Work Phone: [facility] 07-31-2017 influenza, seasonal, injectable Dr. Ivette Grimes Work Phone: [facility] 08-02-2016 influenza, injectabl e, quadrivalent, preservative free Dr. Ivette Grimes Work Phone: [facility] 08-02-2016 influenza, seasonal, injectable Dr. Ivette Grimes Work Phone: [facility] 07-09-2016 influenza, injectabl e, quadrivalent, contains preservative Elle Rasheed MD Work Phone: [facility] 03-05-2016 hepatitis B vaccine, pediatric or pediatric/adolescent dosage Elle Rasheed MD Work Phone: [facility] 03-05-2016 hepatitis B vaccine, unspecified formulation Elle Rasheed MD Work Phone: [facility] 07-25-2015 influenza, injectabl e, quadrivalent, contains preservative Ivette Grimes MD Work Phone: [facility] 07-25-2015 influenza, injectabl e, quadrivalent, preservative free Dr. Ivette Grimes Work Phone: [facility] 07-25-2015 influenza, seasonal, injectable Dr. Ivette Grimes Work Phone: [facility] 07-25-2015 varicella virus vaccine Cathy Rasheed MD Work Phone: [facility] 06-06-2015 hepatitis B vaccine, pediatric or pediatric/adolescent dosage Elle Rasheed MD Work Phone: [facility] 05-05-2015 hepatitis B vaccine, pediatric or pediatric/adolescent dosage Elle Rasheed MD Work Phone: [facility] 06-01-2013 tetanus toxoid, redu jamila diphtheria toxoid, and acellular pertussis vaccine, adsorbed Elle Rasheed MD Work Phone: [facility] 02-22-2009 human papilloma viru s vaccine, quadrivalent Elle Rasheed MD Work Phone: [facility] Work Phone: 09-27-2008 human papilloma viru s vaccine, quadrivalent Elle Rasheed MD Work Phone: [facility] Work Phone: 07-20-2008 human papilloma viru s vaccine, quadrivalent Elle Rasheed MD Work Phone: [facility] Work Phone: Payers Date Payer Category Payer Unknown [id number] 2024 Self-pay [id number] [phone] [id number] 2022 Government (not [facility] care or Medicaid) [facility] [id number] 2022 Private Health Insurance [id number] 2022 Unknown [id number] 2020 Unknown [id number]. [id number] 2019 Unknown [id number]. [id number]. [id number] 2015 Unknown [id number] Unknown [id number] Unknown [id number] 2.16.840.1.153110.3.579.2. 462 Unknown [id number] 2.16.840.1.293122.3.579.2. 462 Unknown [id number] 2.16.840.1.936996.3.579.2. 462 Unknown [id number] 2.16.840.1.201439.3.579.2. 462 Unknown [id number] 2.16.840.1.280407.3.579.2. 462 Unknown [id number] 2.16.840.1.303167.3.579.2. 462 Unknown [id number] 2.16.840.1.938999.3.579.2. 462 Unknown [id number] 2.16.840.1.644307.3.579.2. 462 Unknown [id number] 2.16.840.1.116545.3.579.2. 462 Unknown [id number] 2.16.840.1.042389.3.579.2. 462 Unknown [id number] 2.16.840.1.386477.3.579.2. 462 Unknown [id number] 2.16.840.1.143767.3.579.2. 462 Unknown [id number] 2.16.840.1.800192.3.579.2. 462 Unknown [id number] 2.16.840.1.995409.3.579.2. 462 Unknown [id number] 2.16.840.1.897543.3.579.2. 462 Unknown [id number] 2.16840.1.761437.3.579.2. 462 Unknown [id number] 2.16.840.1.653358.3.579.2. 462 Unknown [id number] 2.16840.1.129125.3.579.2. 462 Unknown [id number] 2.16840.1.665089.3.579.2. 462 Unknown [id number] 2.840.1.850222.3.579.2. 462 Unknown [id number] 2.840.1.260252.3.579.2. 462 Unknown [id number] 2.840.1.219648.3.579.2. 462 Unknown [id number] 2.840.1.713079.3.579.2. 462 Unknown [id number] 2.840.1.027466.3.579.2. 462 Unknown [id number] 2.840.1.591105.3.579.2. 462 Unknown [id number] 2.840.1.298776.3.579.2. 462 Unknown [id number] 2.840.1.008536.3.579.2. 462 Unknown [id number] 2.840.1.686747.3.579.2. 462 Unknown [id number] 2.840.1.872703.3.579.2. 462 Unknown [id number] 2.16840.1.632117.3.579.2. 462 Unknown [id number] 2.16840.1.794373.3.579.2. 462 Unknown [id number] 2.840.1.705177.3.579.2. 462 Unknown [id number] 2.16.840.1.659714.3.579.2. 462 Unknown [id number] 2.16.840.1.976956.3.579.2. 462 Unknown [id number] 2.16.840.1.127461.3.579.2. 462 Unknown [id number] 2.16840.1.444718.3.579.2. 462 Unknown [id number] 2.840.1.061392.3.579.2. 462 Unknown [id number] 2.16840.1.890372.3.579.2. 462 Social History Date Type Detail Facility Start: 03-14-2011 End: 07-05-2025 Tobacco smoking status NHIS Never smoked tobacco [facility] Start: 01-25-2022 End: 07-15-2025 Alcohol intake Current non-drinker of alcohol (finding) [facility] Start: 09-13-2020 End: 11-01-2022 History SDOH Alcohol Frequency 1 [facility] Start: 03-09-2020 History SDOH Social Connections Phone 5 [facility] Start: 03-09-2020 End: 11-01-2022 History SDOH Social Connections Get Together 2 [facility] Start: 03-09-2020 End: 11-01-2022 History SDOH Social Connections Jew 3 [facility] Start: 03-09-2020 End: 11-01-2022 History SDOH Social Connections Living 7 [facility] Start: 09-13-2020 End: 11-01-2022 History SDOH Financial 4 [facility] Start: 08-15-2020 Education 16 [facility] Start: 1980 Sex Assigned At Female [facility] Start: 01-19-2022 End: 01-22-2023 Exposure to SARS-CoV-2 (event) Not sure [facility] Start: 02-06-2022 End: 02-04-2024 Tobacco smoking status NHIS Unknown if ever smoked [facility] Start: 05-15-2020 None [place] [facility] Start: 05-15-2020 [facility] Start: 05-05-2020 [facility] Start: 03-14-2011 End: 07-19-2022 Tobacco use and exposure Smokeless tobacco non-user [facility] Work Phone: Start: 11-01-2022 History SDOH Alcohol Std Drinks 0 [facility] Start: 11-01-2022 End: 05-17-2023 History of Social function [facility] Start: 11-01-2022 End: 05-17-2023 Social connection and isolation panel [facility] Do you belong to any clubs or organizations such as [employer] groups, [employer], [employer] or [employer] groups, or school groups? No [facility] Are you now , , , , never or living with a partner? Never [facility] How often to you hav e a drink containing alcohol? Never [facility] Start: 10-05-2012 How many standard drinks containing alcohol do you have on a typical day? Patient does not drink [facility] How hard is it for y ou to pay for the very basics like food, housing, medical care, and heating Not very hard [facility] Do you feel stress - tense, restless, nervous, or anxious, or unable to sleep at night because your mind is troubled all the time - these days [OSQ] Only a little [facility] (I/We) worried wheth er (my/our) food would run out before (I/we) got money to buy more. Never true [facility] Start: 05-27-2020 Gender identity Identifies as female gender (finding) [facility] Start: 05-27-2020 Sexual orientation Heterosexual (fin glory) [facility] Do you belong to any clubs or organizations such as [employer] groups, [employer], [employer] or [employer] groups, or school groups? Yes [facility] Start: 02-02-2025 Sex Female (finding) [facility] NEGATED: Highlighted row [facility] Medical Equipment Procedure Code Equipment Code Equipment Origin al Text Equipment Identifier Dates [id number], [id number] Start: 07-22-2018 Comment on above: Test blood [...] Diagnostic (Blood Glucose Test) strip Start: 04-26-2020 Pen Needle, Diabetic 31 gauge x 5/32" needle Start: 07-07-2025 STENT,URETERAL PIGTAIL [id number] FDA Start: 02-25-2019 Blood Sugar Diagnostic (Blood Glucose Test) strip Start: 04-26-2020 Pen Needle, Diabetic 31 gauge x 5/32" needle Start: 07-07-2025 FDA Start: 02-25-2019 FDA Start: 02-25-2019 Goals Date Patient Goal Desired Activity /State Functional Status Date Assessment Result Facility 07-07-[address] [facility] Work Phone: 12-11-2024 Total score [AUDIT-C] 0 12/11/19 25 10:02 AM EST User, Shankar [facility] 12-11-2024 Within the last year , have you been humiliated or emotionally abused in other ways by your partner or ex-partner? No 12/11/2024 10:02 AM EST User, [facility] 12-11-2024 Within the last year , have you been afraid of your partner or ex-partner? No 12/11/2024 10:02 AM EST User, [facility] 12-11-2024 Within the last year , have you been raped or forced to have any kind of sexual activity by your partner or ex-partner? No 12/11/2024 10:02 AM EST User, [facility] 12-11-2024 Within the last year , have you been kicked, hit, slapped, or otherwise physically hurt by your partner or ex-partner? No 12/11/2024 10:02 AM EST UserShankar No [facility] 12-11-2024 How often to you hav e a drink containing alcohol? Never 12/11/2024 10:02 AM EST User, Katehart Never [facility] 12-11-2024 Functional status Patient does n ot drink 12/11/2024 10:02 AM EST User, Fernt Patient does not drink [facility] 12-11-2024 How often do you hav e 6 or more drinks on 1 occasion? Never 12/11/2024 10:02 AM EST UserFernt Never [facility] 08-07-[address] [facility] Work Phone: 10-22-2014 Are you deaf, or do you have serious difficulty hearing No 10/22/2014 10:49 AM Ashanti Mejia Ma No [facility] 10-22-2014 Are you blind, or do you have serious difficulty seeing, even when wearing glasses No 10/22/2014 10:49 AM Ashanti Mejia Ma No [facility] 10-22-2014 Do you have serious difficulty walking or climbing stairs No 10/22/2014 10:49 AM Ashanti Mejia Ma No [facility] 10-22-2014 Do you have difficul ty dressing or bathing No 10/22/2014 10:49 AM Ashanti Mejia Ma No [facility] 10-22-2014 Because of a physica l, mental, or emotional condition, do you have difficulty doing errands alone such as visiting a physician's office or shopping No 10/22/2014 10:49 AM Ashanti Mejia Ma [facility] Mental Status Date Assessment Result Facility 07-07-2025 Cognitive function Voice/Name [facility] Work Phone: 06-23-2025 Cognitive function Voice/Name [facility] Work Phone: 11-11-2024 Cognitive function Voice/Name [facility] Work Phone: 02-04-2024 Cognitive function Level Of Cons ciousness Awake;Alert;Appropriate [facility] Work Phone: 08-07-2023 Cognitive function Voice/Name [facility] Work Phone: 08-05-2023 Cognitive function Level Of Cons ciousness Awake;Alert;Appropriate;Fol lows Commands [facility] Work Phone: 05-20-2023 Cognitive function Level Of Cons ciousness Awake;Alert;Appropriate [facility] Work Phone: 12-03-2022 Cognitive function Level Of Cons ciousness Awake;Alert;Appropriate;Fol lows Commands [facility] Work Phone: 11-27-2022 Cognitive function Level Of Cons ciousness Awake;Alert;Appropriate [facility] Work Phone: 10-22-2014 Because of a physica l, mental, or emotional condition, do you have serious difficulty concentrating, remembering, or making decisions No 10/22/2014 10:49 AM EST Ashanti Goss Ma [facility] Clinical Notes 12-06-2012 to 08-04-2025 Patient InstructionsSuLubna hernandez APRN.[facility] - 07/15/2025 9:33 AM EDTTelephone Encounter - Lubna De La Garza APRN.[facility] 07/15/2025 9:24 AM Little Henao MA - 07/09/2025 8:01 AM EDT Note Date & Type Note Facility 08-04-2025 Note HNO ID: [id number] Author: FATUMA BECKFORD PA-C Service: ? Author Type: Physician Halal Butcher Type: Progress Notes Filed: 08/04/2025 17:00 Note Text: Follow-Up Onabotulinum Toxin A (BotoxTM) for Migraine Indication: Chronic Intractable Migraine Treatment #: 7 Referral Expiration: 11/03/2025 Prior to the initiation of the FIRST treatment with Onabotulinum Toxin A, the patient reported the following average headache frequency over the past 3 MONTHS: Number of moderate-severe migraine days/month: 30 (daily) Number of mild migraine days/month: 0 Number of headache free days/month: 0 (0 headache-free hours) Migraine severity: 06/13 The patient has been assessed for disorders which could contribute to breathing or swallowing difficulty, and there is no contraindication with PREEMPT Botox. There is no documented allergic reaction/hypersensitivity to any botulinum toxin and there is no active infection at proposed injection site. HEADACHE SCORES: 06/05/2025 07/13/2025 07/28/2025 VAHE - 2/7 SCORES VAHE-2 Score 0 0 0 VAHE-7 Score 0 2 0 07/13/2025 07/03/2024 06/03/2024 PHQ-9 Score 7 1 5 BP 121/71 Pulse 82 Resp 18 Wt 123.5 kg (272 lb 3.2 oz) LMP (LMP Unknown) SpO2 97% BMI 42.63 kg/m? Patient name: Tori Gray : 1980 ALLERGIES Allergen Reactions Farxiga [Dapagliflo* GI Upset Lidocaine Hives Metformin GI Upset Steroids [Betametha* Hives UNIVERSAL PROTOCOL / SAFETY CHECKLIST Procedure: Onabotulinum toxin A for migraine Informed Consent Consent Obtained: Written [place] Protocol A moment to CARE was completed SIGN IN Personnel directly involved with the procedure wore the appropriate PPE Special Equipment: N/A Patient/Surrogate Stated/Verified: Patient name, Date of , Relevant allergies and Intended procedure TIME OUT No relevant labs, photos, and/or imaging studies were applicable for review. Consent documented and matches the intended procedure No correct side/site applicable for marking and visibility. No medications required for procedure. No fire risk assessment and interventions applicable. No implant(s) inserted. SIGN OUT No specimen collected. Written Consent Obtained: Written LOT #: [id number] Expiration Date: Month: : 2026 Second vial: LOT #: [id number] Expiration Date: Month: Year: 2026 Injection Sites Left (Units) Left (Sites) Right (Units) Right (Sites) TOTAL (Units) [employer] 5 1 5 1 10 Procerus Units: [...] Zomig Rizatriptan Imitrex Amerge Patient presents for 7th round of botox, tolerated procedure well without complications. Patient continuing to take topiramate and Nurtec 75mg for onset of headache, works well. Will return in 12 weeks for repeat botox therapy. Last botox lasted a long time this time, worsened over the spring. Now getting one a week and not severe. But did have some times where they were daily. Depakash marquez did help in the summer. Then had shoulder surgery and caused YUAN to worsen. Would like to wean down on TPM, will decrease 50mg every 2-3 weeks until stop. Fatuma Beckford PA-C [facility] 07-29-2025 Note HNO ID: [id number] Author: IVETTE GRIMES MD Service: ? Author Type: Physician Type: Progress Notes Filed: 07/29/2025 10:10 Note Text: The patient is a 45-year-old female with type 2 diabetes mellitus, presenting for follow-up after recent hyperosmolar hyperglycemic state. HPI Recent Hospitalization: - Tori Gray was hospitalized from 07/05 to 07/07 for a UTI and acute metabolic encephalopathy. - Symptoms included altered mental status, diaphoresis, and dark urine. - Blood glucose levels were elevated, reaching 538 mg/dL. - Diagnosed with hyperosmolar hyperglycemic state and sepsis; treated in the ICU. - Tori denies current dysuria or urinary frequency. Type 2 Diabetes Mellitus: - Recent A1c was 7.4% in June. - Current blood glucose levels range from 106-160 mg/dL during the day; fasting levels up to 153 mg/dL. - Lowest recorded blood glucose was 82 mg/dL after 4 hours of sleep. - Tori is monitoring blood glucose twice daily. - Taking Lantus at bedtime and Ozempic 2 mg. Recent Shoulder Surgery: - Tori underwent shoulder surgery on 06/23. - Healing well, but experiencing discomfort due to inability to sleep on the left side. Diet and Hydration: - Tori drinks a significant amount of water daily. - Eats a snack before bed as advised. Denies: - Current chest pain, dyspnea, or edema. MEDICATIONS: Current Outpatient Medications Medication Sig lisinopril (ZESTRIL) 10 mg tablet Take 1 tablet by mouth once daily. topiramate (TOPAMAX) 100 mg tablet Take 1 tablet by mouth two times a day. insulin glargine (LANTUS SOLOSTAR U-100 INSULIN) 100 unit/mL (3 mL) Inject 10 Units subcutaneously daily at bedtime. omeprazole (PRILOSEC) 20 mg capsule Take 1 capsule by mouth daily before breakfast. 1/2 hr before meal. ondansetron (ZOFRAN) 4 mg tablet Take 1 tablet by mouth every 8 hours as needed for nausea/vomiting. semaglutide (OZEMPIC) 2 mg/dose (8 mg/3 mL) pen injector Inject 2 mg subcutaneously one time a week. FLUoxetine (PROZAC) 20 mg capsule Take 1 capsule by mouth once daily. tiZANidine (ZANAFLEX) 4 mg tablet Take 1 tablet by mouth every 8 hours as needed (muscle spasms). gabapentin (NEURONTIN) 300 mg capsule Take 1 capsule by mouth once daily for 180 days. albuterol HFA (VENTOLIN HFA) 90 mcg/actuation inhaler Inhale 2 Puffs as instructed every 4 hours as needed for wheezing/shortness of breath. rimegepant (NURTEC ODT) 75 mg disintegrating tablet [...] 1 tablet by mouth once daily. Ipratropium [place] (ATROVENT) 21 mcg (0.03 %) nasal spray Use 2 Sprays in the nose every 12 hours. MAGNESIUM ORAL Take by mouth. meclizine (ANTIVERT) 25 mg tab Take 25 mg by mouth once daily. Takes two tabs in am BIPAP levonorgestrel (KYLEENA) 17.5 mcg/24 hrs (5 yrs) 19.5 mg IUD 1 Each by INTRAUTERINE route as directed. blood sugar diagnostic (BLOOD GLUCOSE TEST) test strip Test blood sugar(s) 1 times daily. Dx: Type 2 DM - Controlled E11.9 Insulin: Yes Lancets lancets Test blood sugar(s) 1 times daily. Dx: Type 2 DM - Controlled E11.9 Insulin: No Zivkevkn-Dt-Egu-Fe-FA tab Take 1 tablet by mouth once [...] Age of Onset Alcohol/Drug Mother Heart Father SD Cancer Father PANCREATIC CANCER Diabetes Father Coronary Artery Disease Father Anxiety disorder Sister Depression Sister Depression Brother Cancer Maternal Grandmother LUNG CANCER Diabetes Maternal Grandfather Heart Paternal Grandmother TRIPLE BYPASS SURGERY SOCIAL HISTORY[1] Reviewed current medications, allergies, past medical history, surgical history, family history and social history today. REVIEW OF SYSTEMS Cardiovascular: (-) chest pain, (-) edema Respiratory: (-) shortness of breath Genitourinary: (-) dysuria, (-) urinary frequency HEALTH MAINTENANCE: Reviewed health maintenance issues tod (more content not included)... [facility] 07-15-2025 Instructions Lubna De La Garza APRN.[facility] - 07/15/2025 9:54 AM EDT - Continue taking your nightly insulin injections as prescribed for the next month. - Administer your Ozempic injection on nights; your next dose is tonight. - Add a small bedtime snack with both protein and carbohydrate (for example, a drea cracker with peanut butter and a small piece of fruit, or a piece of cheese and fruit) to help reduce early?morning blood sugar spikes. - Check and record your fasting blood sugar each morning before eating or moving. - If your fasting blood sugar is 90 mg/dL or lower on two consecutive mornings, stop the insulin before your next follow-up. - You have completed the antibiotic course; no further antibiotics are needed. - Please get labs done that Dr. Grimes had ordered last month documented in this encounter [facility] 07-15-2025 Note HNO ID: [id number] Author: LUBNA DE LA GARZA APRN.[facility] Service: ? Author Type: Nurse Practitioner Type: Progress Notes Filed: 07/15/2025 09:54 Note Text: This is a 45 year old female who presents today with: Patient presents with: Hospital F/U: [facility] DX Sepsis, UTI D/C 07/07 HISTORY OF PRESENT ILLNESS: Tori Gray is a 45 year old female. Patient presents with: Hospital F/U: [facility] DX Sepsis, UTI D/C 07/07 The patient is a 45-year-old female with type 2 DM on insulin, presenting for follow-up of glycemic control and evaluation of persistent fatigue post-hospitalization for anemia. UTI: - Tori Gray was hospitalized for a UTI; completed a course of cefdinir yesterday. - Reports feeling "80% better" with no current dysuria. - Believes the infection may have been caused by catheterization during shoulder surgery on 06/23. - Denies fever, chills, or hematuria. Anemia: - Diagnosed with significant anemia during hospitalization; etiology unknown. - Recent labs in August showed low RBC count; unsure about platelet count. - Denies hematochezia or melena. - Reports ongoing fatigue, but overall improvement in energy levels. DM: - Blood glucose levels were elevated during hospitalization, with a peak of 480 mg/dL. - Attributes hyperglycemia to missing two doses of Ozempic around the time of surgery. - Currently taking insulin at night; resumed Ozempic last . - Monitoring blood glucose levels daily; fasting levels around 160 mg/dL, post-activity levels drop to 110-130 mg/dL. - Reports weight loss of 15 lbs since hospitalization. - Denies excessive thirst, polyuria, or polydipsia. Shoulder Pain: - Underwent shoulder surgery on 06/23; currently weaning off the sling. - Reports mild pain but good range of motion. - Follow-up with the surgeon on Saturday indicated good healing progress. Additional ROS: - Denies headaches, changes in hearing or vision, neck swelling, dyspnea, cough, wheezing, chest pain, leg swelling, palpitations, nausea, emesis, diarrhea, constipation, syncope, seizures, or tremors. - Denies feelings of hopelessness, helplessness, or suicidal thoughts. PAST MEDICAL HISTORY: PAST MEDICAL HISTORY Diagnosis [...] Dipropionate] MEDICATIONS Current Outpatient Medications Medication Sig lisinopril (ZESTRIL) 10 mg tablet Take 1 tablet by mouth once daily. omeprazole (PRILOSEC) 20 mg capsule Take 1 capsule by mouth daily before breakfast. 1/2 hr before meal. ondansetron (ZOFRAN) 4 mg tablet Take 1 tablet by mouth every 8 hours as needed for nausea/vomiting. semaglutide (OZEMPIC) 2 mg/dose (8 mg/3 mL) pen injector Inject 2 mg subcutaneously one time a week. FLUoxetine (PROZAC) 20 mg capsule Take 1 capsule by mouth once daily. tiZANidine (ZANAFLEX) 4 mg tablet Take 1 tablet by mouth every 8 hours as needed (muscle spasms). gabapentin (NEURONTIN) 300 mg capsule Take 1 capsule by mouth once daily for 180 days. topiramate (TOPAMAX) 100 mg tablet Take 1 tablet by mouth two times a day. albuterol HFA (VENTOLIN HFA) 90 mcg/actuation inhaler Inhale 2 Puffs as instructed every 4 hours as needed for wheezing/shortness of breath. rimegepant (NURTEC ODT) 75 mg disintegrating tablet [...] 1 tablet by mouth once daily. Ipratropium [place] (ATROVENT) 21 mcg (0.03 %) nasal spray Use 2 Sprays in the nose every 12 hours. MAGNESIUM ORAL Take by mouth. meclizine (ANTIVERT) 25 mg tab Take 25 mg by mouth once daily. Takes two tabs in am BIPAP levonorgestrel (KYLEENA) 17.5 mcg/24 hrs (5 yrs) 19.5 mg IUD 1 Each by INTRAUTERINE route as directed. blood sugar diagnostic (BLOOD GLUCOSE TEST) test strip Test blood sugar(s) 1 times daily. Dx: Type 2 DM - Controlled E11.9 Insulin: Yes Lancets lancets Test blood sugar(s) 1 times daily. Dx: Type 2 DM - Controlled E11.9 Insulin: No Sabcaeli-Bt-Hdb-Fe-FA tab Take 1 tablet by mouth once daily. No current facility-administered medications for this visit. FAMILY HISTORY Problem Relation Age of Onset Alcohol/Drug Mot (more content not included)... [facility] 07-15-2025 History of Presen t illness Narrative This is a 45 year old female who presents today with: Patient presents with: Hospital F/U: [facility] DX Sepsis, UTI D/C 07/07 HISTORY OF PRESENT ILLNESS: Tori Gray is a 45 year old female. Patient presents with: Hospital F/U: [facility] DX Sepsis, UTI D/C 07/07 The patient is a 45-year-old female with type 2 DM on insulin, presenting for follow-up of glycemic control and evaluation of persistent fatigue post-hospitalization for anemia. UTI: - Tori Gray was hospitalized for a UTI; completed a course of cefdinir yesterday. - Reports feeling "80% better" with no current dysuria. - Believes the infection may have been caused by catheterization during shoulder surgery on 06/23. - Denies fever, chills, or hematuria. Anemia: - Diagnosed with significant anemia during hospitalization; etiology unknown. - Recent labs in August showed low RBC count; unsure about platelet count. - Denies hematochezia or melena. - Reports ongoing fatigue, but overall improvement in energy levels. DM: - Blood glucose levels were elevated during hospitalization, with a peak of 480 mg/dL. - Attributes hyperglycemia to missing two doses of Ozempic around the time of surgery. - Currently taking insulin at night; resumed Ozempic last . - Monitoring blood glucose levels daily; fasting levels around 160 mg/dL, post-activity levels drop to 110-130 mg/dL. - Reports weight loss of 15 lbs since hospitalization. - Denies excessive thirst, polyuria, or polydipsia. Shoulder Pain: - Underwent shoulder surgery on 06/23; currently weaning off the sling. - Reports mild pain but good range of motion. - Follow-up with the surgeon on Saturday indicated good healing progress. Additional ROS: - Denies headaches, changes in hearing or vision, neck swelling, dyspnea, cough, wheezing, chest pain, leg swelling, palpitations, nausea, emesis, diarrhea, constipation, syncope, seizures, or tremors. - Denies feelings of hopelessness, helplessness, or suicidal thoughts. PAST MEDICAL HISTORY: PAST MEDICAL HISTORY Diagnosis [...] Dipropionate] MEDICATIONS Current Outpatient Medications Medication Sig lisinopril (ZESTRIL) 10 mg tablet Take 1 tablet by mouth once daily. omeprazole (PRILOSEC) 20 mg capsule Take 1 capsule by mouth daily before breakfast. 1/2 hr before meal. ondansetron (ZOFRAN) 4 mg tablet Take 1 tablet by mouth every 8 hours as needed for nausea/vomiting. semaglutide (OZEMPIC) 2 mg/dose (8 mg/3 mL) pen injector Inject 2 mg subcutaneously one time a week. FLUoxetine (PROZAC) 20 mg capsule Take 1 capsule by mouth once daily. tiZANidine (ZANAFLEX) 4 mg tablet Take 1 tablet by mouth every 8 hours as needed (muscle spasms). gabapentin (NEURONTIN) 300 mg capsule Take 1 capsule by mouth once daily for 180 days. topiramate (TOPAMAX) 100 mg tablet Take 1 tablet by mouth two times a day. albuterol HFA (VENTOLIN HFA) 90 mcg/actuation inhaler Inhale 2 Puffs as instructed every 4 hours as needed for wheezing/shortness of breath. rimegepant (NURTEC ODT) 75 mg disintegrating tablet [...] 1 tablet by mouth once daily. Ipratropium [place] (ATROVENT) 21 mcg (0.03 %) nasal spray Use 2 Sprays in the nose every 12 hours. MAGNESIUM ORAL Take by mouth. meclizine (ANTIVERT) 25 mg tab Take 25 mg by mouth once daily. Takes two tabs in am BIPAP levonorgestrel (KYLEENA) 17.5 mcg/24 hrs (5 yrs) 19.5 mg IUD 1 Each by INTRAUTERINE route as directed. blood sugar diagnostic (BLOOD GLUCOSE TEST) test strip Test blood sugar(s) 1 times daily. Dx: Type 2 DM - Controlled E11.9 Insulin: Yes Lancets lancets Test blood sugar(s) 1 times daily. Dx: Type 2 DM - Controlled E11.9 Insulin: No Redwbozj-Ft-Une-Fe-FA tab Take 1 tablet by mouth once daily. No current facility-administered medications for this visit. FAMILY HISTORY Problem Relation Age of Onset Alcohol/Drug Mother Heart Father SD Cancer Father PANCREATIC CANCER Diabetes Father Coronary Artery Disease Father Anxiety disorder Sister Depression Sister Depression Brother Cancer Maternal Grandmother LUNG CANCER Diabetes Maternal Grandfather Heart Paternal Grandmother TRIPLE BYPASS SURGERY SOCIAL HISTORY[1] REVIEW OF SYSTEMS Constitutional: (+) fatigue, (+) weight loss, (-) fever, (-) chills Head: (-) headaches Eyes: (-) vision changes Ears/Nose/Mouth/Throat: (-) hearing changes Neck: (-) neck swelling Cardiovascular: (-) chest pain, (-) leg swelling, (-) orthopnea, (-) palpitations Respiratory: (-) shortness of breath, (-) cough, (-) wheeze Gastrointestinal: (-) nausea, (-) vomiting, (-) diarrhea, (-) constipation Genitourinary: (-) dysuria, (-) hematuria Musculoskeletal: (+) shoulder pain Neurological: (-) syncope, (-) seizures, (-) tremors Psychiatric: (-) hopelessness, (-) helplessness, (-) suicidal thoughts Endocrine: (-) polydipsia EXAM: BP 128/76 Pulse 73 Temp 36.4 C (97.6 F) Wt 122 kg (269 lb) LMP (LMP Unknown) SpO2 98% BMI 42.13 kg/m PHYSICAL EXAM: GENERAL: NAD, alert and oriented SKIN: unremarkable, no rash or skin lesions. HEAD: normocephalic NECK: Supple, thick- full neck, no carotid bruits. LUNGS: Clear to auscultation bilaterally, no wheezes/rhonchi/rales. HEART: Regular rate and rhythm, no murmurs. No ectopy. EXTREMITIES: Normal, No deformities, No skin discoloration, No edema. NEURO: Awake, alert and oriented x3, cranial nerves II-XII grossly intact, normal gait, no involuntary motions LABS: Labs: (August) - RBC: Low (anemia) - Platelets: Normal - Fecal Occult Blood Test: Negative - Nasal Swab: Negative for COVID, influenza, RSV, and MRSA - Blood Glucose: 480 mg/dL - HbA1c: 7.3% ASSESSMENT/PLAN: 1. Sepsis due to Escherichia coli with acute renal failure without septic shock, unspecified acute renal failure type ([facility]) (A41.51) - Recent hospitalization for E. coli sepsis with acute renal failure; completed course of cefdinir. - No current urinary symptoms; infection likely related to recent shoulder surgery and catheterization. - finished antibiotic yesterday 2. Type 2 diabetes mellitus with microalbuminuria, with long-term current use of insulin ([facility]) (E11.29) 3. Microalbuminuria (R80.9) 4. Type 2 diabetes mellitus without complication, with long-term current use of insulin ([facility]) (E11.9) - Hyperglycemia during hospitalization (glucose 480 mg/dL) likely secondary to infection and missed Ozempic doses. - Blood glucose now improving with insulin and resumption of Ozempic; fasting glucose still elevated (160-200 mg/dL), postprandial readings 103-130 mg/dL. - Educated on adding a small bedtime snack with protein and carbohydrate to help reduce fasting hyperglycemia. - Continue current insulin regimen for one month; monitor fasting glucose daily. Lantus 10 unit at bedtime. - Advised to hold insulin if fasting glucose consistently <90 mg/dL. 5. LETITIA (obstructive sleep apnea) (G47.33) - Adherent to CPAP 6. Obesity, Class III, BMI 40-49.9 (morbid obesity) (HCC) (E66.813) - Weight loss of 15 lbs since hospitalization. - Encouraged continuation of healthy eating habits. - Continue Ozempic 7. Migraine without aura and without status migrainosus, not intractable (G43.009) - Stable on topiramate Discussed treatment plan and patient voices understanding. Patient's questions answered appropriately. Medications and potential side effects were discussed and patient voices understanding. Return to the office as scheduled or as needed for worsening/no improvement. Lubna De La Garza APRN.[facility] [1] Social History Tobacco Use Smoking status: Never Smokeless tobacco: Never Vaping Use Vaping status: Never Used Substance Use Topics Alcohol use: No Drug use: No documented in this encounter [facility] 07-15-2025 Telephone encounter Note Patient was seen at [facility] on August 03, 2025 for sepsis, complicated urinary tract infection. Patient presented to the emergency room with some confusion and found to have hyperosmolar nonketotic state as well as sepsis secondary to urinary tract infection in addition to acute kidney injury. She was seen by the blasting helper. Acute metabolic encephalopathy secondary to sepsis and urinary tract infection. Hyperosmolar nonketotic state Sepsis secondary to acute cystitis with E. coli Acute kidney injury Thrombocytopenia-this normalized on discharge Anemia secondary to chronic disorder obesity Hypertension lisinopril held during admission but resumed. Obesity GERD on PPI Chronic migraines Sleep apnea consistent use of PAP encouraged Left shoulder impingement underwent left shoulder arthroscopy, some acromial decompression, debridement on June 23, 2025. Left shoulder immobilized. July 07: WBC 6.2, hemoglobin 9.5, hematocrit 27.7, platelet count 187 Sodium 136, potassium 3.5, BUN 19, creatinine 1.14, glucose 223 Magnesium 1.9 New prescriptions: Cefdinir 300 mg twice daily for 7 days Lantus 10 units at bedtime Ozempic 2 mg weekly continued [facility] 07-15-2025 Miscellaneous Notes Patient was seen at [facility] on August 03, 2025 for sepsis, complicated urinary tract infection. Patient presented to the emergency room with some confusion and found to have hyperosmolar nonketotic state as well as sepsis secondary to urinary tract infection in addition to acute kidney injury. She was seen by the blasting helper. Acute metabolic encephalopathy secondary to sepsis and urinary tract infection. Hyperosmolar nonketotic state Sepsis secondary to acute cystitis with E. coli Acute kidney injury Thrombocytopenia-this normalized on discharge Anemia secondary to chronic disorder obesity Hypertension lisinopril held during admission but resumed. Obesity GERD on PPI Chronic migraines Sleep apnea consistent use of PAP encouraged Left shoulder impingement underwent left shoulder arthroscopy, some acromial decompression, debridement on June 23, 2025. Left shoulder immobilized. July 07: WBC 6.2, hemoglobin 9.5, hematocrit 27.7, platelet count 187 Sodium 136, potassium 3.5, BUN 19, creatinine 1.14, glucose 223 Magnesium 1.9 New prescriptions: Cefdinir 300 mg twice daily for 7 days Lantus 10 units at bedtime Ozempic 2 mg weekly continued documented in this encounter [facility] 07-09-2025 Note HNO ID: [id number] Author: LUBNA DE LA GARZA APRN.CNP Service: ? Author Type: Nurse Practitioner Type: Progress Notes Filed: 07/09/2025 13:27 Note Text: Lisinopril renewed. [facility] 07-09-2025 History of Presen t illness Narrative Lisinopril renewed. TRANSITION CARE MANAGEMENT (TCM) INITIAL CONTACT Foundation Assistant Outreach Provider Action/FYI: Patient needs a refill of her lisinopril Initial contact with patient post discharge, spoke to patient. Patient identified by name and . TRANSITION CARE MANAGEMENT INITIAL OUTREACH DOCUMENTATION: 07/09/2025 07/09/2025 Date of Outreach: Outreach Attempt 1: Contact Made Date of Discharge 07/07/2025 SUMMARY: -Pt discharged from [facility] on 07/07/25. -Admitted for: Acute Sepsis, UTI Do you have a hospital follow up appointment with your PCP? Appointment on 07/19/[address] Grimes. Yes. Remind patient of appointment date, time, and location. If not within 14 calendar days of discharge - please reschedule accordingly. MEDICATIONS: Many patients have questions or concerns about their medications once they are home. Were you prescribed any new medications? Yes If yes, what are those medications? Cefdinir 30 mg twice daily for 7 days, Lantus Solostar 10 units at night Were you told to hold any medications? No Were any of your medications discontinued? No Do you have any questions about getting or taking your medications? No Your discharge instructions/After visit Summary (AVS) are important in guiding you through the recovery process. Is there anything I might help you understand? No Do you have all the necessary equipment and supplies at home? Yes Medical records from recent hospitalization: Epic documented in this encounter [facility] 07-09-2025 Note HNO ID: [id number] Author: LITTLE MURPHY MA Service: ? Author Type: Foundation Assistant Type: Progress Notes Filed: 07/09/2025 13:27 Note Text: TRANSITION CARE MANAGEMENT (TCM) INITIAL CONTACT Foundation Assistant Outreach Provider Action/FYI: Patient needs a refill of her lisinopril Initial contact with patient post discharge, spoke to patient. Patient identified by name and . TRANSITION CARE MANAGEMENT INITIAL OUTREACH DOCUMENTATION: 07/09/2025 07/09/2025 Date of Outreach: Outreach Attempt 1: Contact Made Date of Discharge 07/07/2025 SUMMARY: -Pt discharged from [facility] on 07/07/25. -Admitted for: Acute Sepsis, UTI Do you have a hospital follow up appointment with your PCP? Appointment on 07/19/[address] Grimes. Yes. Remind patient of appointment date, time, and location. If not within 14 calendar days of discharge - please reschedule accordingly. MEDICATIONS: Many patients have questions or concerns about their medications once they are home. Were you prescribed any new medications? Yes If yes, what are those medications? Cefdinir 30 mg twice daily for 7 days, Lantus Solostar 10 units at night Were you told to hold any medications? No Were any of your medications discontinued? No Do you have any questions about getting or taking your medications? No Your discharge instructions/After visit Summary (AVS) are important in guiding you through the recovery process. Is there anything I might help you understand? No Do you have all the necessary equipment and supplies at home? Yes Medical records from recent hospitalization: [facility] 07-09-2025 Note Patient Outreach (FA MPWS) TORI GRAY ([id number]) 1980 F Date Time Provider Department 07/09/25 LITTLE MURPHY During your visit today, we recorded the following information about you: Little Murphy MA 07/09/2025 1:27 PM Signed TRANSITION CARE MANAGEMENT (TCM) INITIAL CONTACT Foundation Assistant Outreach Provider Action/FYI: Patient needs a refill of her lisinopril Initial contact with patient post discharge, spoke to patient. Patient identified by name and . TRANSITION CARE MANAGEMENT INITIAL OUTREACH DOCUMENTATION: 07/09/2025 07/09/2025 Date of Outreach: Outreach Attempt 1: Contact Made Date of Discharge 07/07/2025 SUMMARY: -Pt discharged from [facility] on 07/07/25. -Admitted for: Acute Sepsis, UTI Do you have a hospital follow up appointment with your PCP? Appointment on 07/19/[address] Grimes. Yes. Remind patient of appointment date, time, and location. If not within 14 calendar days of discharge - please reschedule accordingly. MEDICATIONS: Many patients have questions or concerns about their medications once they are home. Were you prescribed any new medications? Yes If yes, what are those medications? Cefdinir 30 mg twice daily for 7 days, Lantus Solostar 10 units at night Were you told to hold any medications? No Were any of your medications discontinued? No Do you have any questions about getting or taking your medications? No Your discharge instructions/After visit Summary (AVS) are important in guiding you through the recovery process. Is there anything I might help you understand? No Do you have all the necessary equipment and supplies at home? Yes Medical records from recent hospitalization: Lubna Li APRN.MAINTAINER OPERATOR 07/09/2025 1:27 PM Signed Lisinopril renewed. Allergies As of Date: 07/09/2025 Noted Allergy Reaction FARXIGA (DAPAGLIFLOZIN) 08/05/2024 8 - GI Upset LIDOCAINE 12/24/2019 4 - Hives METFORMIN 08/05/2024 8 - GI Upset STEROIDS (BETAMETHASONE DIPROPION*12/21/2021 4 - Hives Date Reviewed: 06/07/2025 Reviewed by: Casi Encinas - Fully Assessed Reason for Visit: Transition Of Care [4074] Cmt: [facility] Discharge 07/07/25 Visit Diagnoses:Microalbuminuria [R80.9] Type 2 diabetes mellitus without complication, with long-term current use of insulin (HCC) [E11.9, Z79.4] Order(s):lisinopril (ZESTRIL) 10 mg tabletTake 1 tablet by mouth once daily.Disp: 90 tabletRfl: 3 Prescriptions as of 07/09/2025 - lisinopril (ZESTRIL) 10 mg tablet Take [...] as needed for wheezing/shortness of breath. - rimegepant (NURTEC ODT) 75 mg disintegrating [...] tablet by mouth once daily. - Ipratropium [place] (ATROVENT) 21 mcg (0.03 %) nasal spray [...] DM - Controlled E11.9 Insulin: No - Ivdnuxxz-Mb-Nwm-Fe-FA tab Take 1 tablet by mouth once daily. Meds Comments as of 03/01/2019: Percocet March 01, 2019 Stephanie Suresh RN Problem List As Of Date 07/09/2025 Noted Resolved SUPERVIS NORMAL 1ST PREG [Z34.00] 11/09/2005 07/02/2006 TRANS HYPERTEN-ANTEPART [O13.9] 06/19/2006 07/02/2006 KERATOSIS PILARIS////SKIN ANOMALY NEC [Q82.8] 03/26/2007 01/23/2010 Other Acne [L70.8] 03/26/2007 FOLLICULITIS///HAIR DISEASES NEC [L67.8, L73.8] 03/26/2007 0 (more content not included)... [facility] 07-07-2025 Discharge summary Note Date/Time July 07, 2025 8:29am [facility] Medical Records Department [address] [place] [address] Discharge Summary 07/07/25 0816 MR#: [id number] Acct: [id number] Name: TORI GRAY Rep #:[id number] : 1980 45 From: Brittany Harrison MD PCP: Dr. Ivette Grimes MD Status:ADM I N Location: ICU [place] [address] 2-1 Providers Date of Admission: 07/05/25 Date of Discharge: 07/07/25 Primary Care Physician: Dr. Ivette Grimes MD Consultations 07/05/25 23:32 Consult: Bow Tacker / Pulmonary Medicine Routine Consulting Provider: Intensivists/Pulmonary Med Reason for Consult: HHS, Complicated UTI, JOHN EMERGENT Consult: No MD Notified: Yes Date Notified: 07/05/25 Time Notified: 21:51 Method of Notification: Text Reason For Visit: HHS, 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, JOHN, ACUTE ON CHRONIC ANEMIA Diagnosis Discharge Diagnosis (1) Sepsis: Status: Acute Code(s): A41.9 - Sepsis, unspecified organism (2) Complicated urinary tract infection: Status: Acute Code(s): N39.0 - Urinary tract infection, site not specified Plan Patient is a 45-year-old lady who presented to the emergency department with some confusion was found to have hyperosmolar nonketotic state as well as sepsissecondary to UTI in addition to acute kidney injury admitted to the intensive care unit for further management 1. Acute metabolic encephalopathy ? Due to combination of hyperosmolar nonketotic state, sepsis secondary to UTI as well as acute kidney injury admitted to intensive care unit for further management 2. Hyperosmolar nonketotic state ? Patient was managed with insulin as well as IV fluid 3. Sepsis secondary to acute cystitis with E. coli ? Patient was managed per protocol with IV fluid broad-spectrum antibiotic therapy and cultures and cultures came back positive for E. coli 4. Acute kidney injury ? Secondary to hypovolemia patient was resuscitated with IV fluid patient creatinine had improved 5. Thrombocytopenia ? Secondary to sepsis platelet count had normalized at the time of discharge 6. Anemia The second is anemia of chronic disorder monitor H&H 7. Class II obesity with BMI of 44.1 As complicating care weight loss advised 8. Essential hypertension ? Patient was post on lisinopril which was held during her admission and resumedon discharge 8. GERD ? On PPI 9. Chronic migraines ? Patient is on Rimegepant as needed at home 10. Obstructive sleep apnea ? Consistent use of PAP therapy encouraged 11. Left shoulder impingement syndrome anxiety is ? Patient underwent Left shoulder arthroscopy, subacromial decompression, debridement on 06/23/2025. Left shoulder immobilized 12. DVT prophylaxis Has bilateral SCDs Medications at Discharge Home Medications blood sugar diagnostic (Blood Glucose Test strips) #10 ea 04/26/20 ipratropium bromide 21 mcg (0.03 %) nasal spray 2 spray intranasal BID PRN allergies 08/23/20 albuterol sulfate 90 mcg/actuation aerosol inhaler 2 puff inhalation Q4H PRN shortness of breath or wheezing 08/10/22 fexofenadine 180 mg tablet (Allergy Relief (fexofenadine)) 180 mg PO DAILY allergies 08/10/22 levonorgestrel 17.5 mcg/24 hr (up to 5 yrs) 19.5mg intrauterine device 1 device intrauterine ONCE control 08/10/22 tizanidine 4 mg tablet 4 mg PO Q8H PRN Muscle Spasm 08/10/22 omeprazole 20 mg capsule,delayed release 20 mg PO DAILY PRN gerd 08/16/22 topiramate 100 mg tablet 100 mg PO BID seizures 08/16/22 fluoxetine 20 mg capsule 20 mg PO QHS mental health 12/28/22 gabapentin 300 mg capsule 300 mg PO QHS nerve pain 12/28/22 lisinopril 10 mg tablet 10 mg PO DAILY blood pressure 12/28/22 ondansetron HCl 4 mg tablet 4 mg PO Q8H PRN nausea 12/28/22 rimegepant 75 mg disintegrating tablet (Nurtec ODT) 75 mg PO DAILY PRN migraine headache 02/04/24 semaglutide 2 mg/dose (8 mg/3 mL) subcutaneous pen injector (Ozempic) 2 mg subcut QWEEK 07/05/25 BIPAP -Bilevel Positive Airway Pressure ([facility] INFORMATIONAL USE ONLY) 07/06/25 CPAP - Continuous Positive Airway Pressure([facility] INFORMATIONAL USE ONLY) 07/06/25 cefdinir 300 mg capsule 300 mg PO BID 7 days #14 caps 07/07/25 insulin glargine 100 unit/mL (3 mL) subcutaneous pen (Lantus Solostar U-100 Insulin) 10 unit (0.1 mL) subcut QPM #15 mL 07/07/25 pen needle, diabetic 31 gauge x 5/32" #100 ea 07/07/25 Hospital Course Summary of Care Provided Minutes Spent on Discharge: 32 Physical Exam Narrative GENERAL: cooperative HEENT: Atraumatic; normocephalic EYES; Anicteric, Normal Conjunctiva NECK; supple, normal thyroid, RESPIRATORY: Diminished to auscultation CARDIOVASCULAR: Regular S1 S2, GI: soft, normoactive bowel sounds, : No Renal angle tenderness; EXTREMITIES: No edema, no clubbing, MUSCULOSKELETAL: Left shoulder immobilized NEURO: Awake; no lateralizing signs. SKIN: No Rash PSYCH; Flat affect Weight / BMI Weight Weight: 127.8 kg Body Mass Index (BMI) 44.1 ABG / Lab / Microbiology Data 07/07/25 05:26 07/07/25 05:26 Laboratory: Laboratory Results - last 24 hr 07/06/25 03:07: POC Glucose 156 H 07/06/25 04:11: POC Glucose 187 H 07/06/25 05:07: POC Glucose 168 H 07/06/25 06:05: Magnesium 1.9, POC Glucose 186 H 07/06/25 06:58: POC Glucose 176 H 07/06/25 08:07: POC Glucose 169 H 07/06/25 09:03: POC Glucose 160 H 07/06/25 10:12: POC Glucose 138 H 07/06/25 11:31: POC Glucose 144 H 07/06/25 16:54: POC Glucose 181 H 07/06/25 21:17: POC Glucose 165 H 07/07/25 05:26: WBC 6.2, RBC 2.86 L, Hgb 9.5 L, Hct 27.7 L, MCV 96.9, MCH 33.2 H, MCHC 34.3, RDW Std Deviation 50.4 H, RDW Coeff of Itzel 14.1, Plt Count 187, MPV9.4, Neut % (Auto) Not Reportable, Sodium 136, Potassium 3.5, Chloride 105, Carbon Dioxide 18.4 L, Anion Gap 12, BUN 19, Creatinine 1.14, Estim Creat Clear Calc 88.48, Est GFR (MDRD) Non-Af 61, BUN/Creatinine Ratio 16.6, Glucose 223 H, Calcium 8.8 Microbiology: Microbiology 07/05/25 18:02 Urine, Clean Catch Urine Culture - Final Escherichia coli 07/06/25 12:55 Stool Stool Occult Blood (TAMEKA) - Final 07/06/25 00:10 Nasal Secretion MRSA (PCR) - Final D/C Instructions Discharge Activity: Return to Normal Activity Call your doctor if you observe: Fever of 101 or Higher, Shortness of breath, Fainting spells and Chest pain DC O2, CPAP, BIPAP Needs Home O2 Discharge instructions: No Meaningful Use Info Meaningful Use Meaningful Use Diagnoses (Choose all that apply): None applicable Discharge Plan Admission Admit Date/Time: 07/05/25 21:46 Attending Provider: Brittany Harrison Primary Care Provider: Ivette Grimes Consulting Providers: Shana Mendoza; Jose Juan Reinoso Discharge Orders/Prescriptions Prescriptions: New cefdinir 300 mg capsule 300 mg PO BID 7 Days Qty: 14 0RF insulin glargine [Lantus Solostar U-100 Insulin] 100 unit/mL (3 mL) insulin pen 10 unit subcut QPM Qty: 15 0RF (DME) pen needle, diabetic 31 gauge x 5/32" needle See Rx Instructions .ROUTE .MEDSUPPLY Qty: 100 0RF Rx Instructions: As directed Continued (DME) blood sugar diagnostic [Blood Glucose Test] [...] mg PO Q8H PRN (Reason: Muscle Spasm) Ozempic 2 mg/dose (8 mg/3 mL) pen injector 2 mg subcut QWEEK (DME) BIPAP -Bilevel Positive Airway Pressure ([facility] INFORMATIONAL USE ONLY) Device See Rx Instructions .ROUTE Patient Comments: VAuto: IPAP=19.2 EPAP=12.4 PS=6.8 Rx Instructions: As directed (DME) CPAP - Continuous Positive Airway Pressure([facility] INFORMATIONAL USE ONLY) Device See Rx Instructions .ROUTE Patient Comments: pt has her home unit at bedside, does not know her settings. Rx Instructions: As directed Nurtec ODT 75 mg tablet,disintegrating 75 mg PO DAILY PRN (Reason: migraine headache) Referrals / Follow Up: Ivette Grimes MD [Primary Care Provider] - In 1 Week Disposition Disposition (needs filled in before D/C Order can be placed): Home, Self Care Charges/Coding Visit Charges Inpatient E&M: 30380 Disch Hosp >30min 07/07/25 0829 <Electronically signed by Brittany Harrison MD> Cosigner Signature (if applicable): CC: Dr. Brittany Harrison MD; Dr. Ivette Grimes MD~ Signed [facility] Work Phone: 1(994) 594-861309-03-2025 Progress note Author Brittany Harrison [facility] Note Date/Time July 07, 2025 8:16am [facility] Medical Records Department [address] [place] [address] Progress Note - Hospitalist 07/07/25 0719 MR#: [id number] Acct: [id number] Name: TORI GRAY Rep #:[id number] : 1980 45 From: Brittany Harrison MD PCP: Dr. Ivette Grimes MD Status:ADM I N Location: ICU CVU 2-1 Reason for Visit Chief Complaint: Altered mentation, elevated BS, dark urine, suprapubic discomfort, polydipsia. Subjective Subjective Patient is a 45-year-old lady who presented to the emergency department with some confusion was found to have hyperosmolar nonketotic state as well as sepsissecondary to UTI in addition to acute kidney injury admitted to the intensive care unit for further management Objective Data Objective Data Vital Signs: Vital Signs Temp Pulse Resp BP Pulse Ox O2 Del Method 98.1 F 61 18 117/74 96 Room Air 07/07/25 04:00 07/07/25 06:00 07/07/25 06:00 07/07/25 06:00 07/07/25 07:15 07/07/25 07:15 Oxygen Delivery Method Room Air Weight: 127.8 kg Body Mass Index (BMI) 44.1 Intake & Output: Intake and Output for Last 24 Hours 07/05/25 07/06/25 07/07/25 23:59 23:59 23:59 Intake Total 4.75 / 2073.75 2826.87 / 2826.87 Output Total 0 / 0 Balance 4.75 / 2073.75 2826.87 / 2826.87 Lab / Micro Data 07/07/25 05:26 07/07/25 05:26 Labs: Laboratory Results - last 24 hr 07/06/25 03:07: POC Glucose 156 H 07/06/25 04:11: POC Glucose 187 H 07/06/25 05:07: POC Glucose 168 H 07/06/25 06:05: Sodium Cancelled, Potassium Cancelled, Chloride Cancelled, Carbon Dioxide Cancelled, Anion Gap Cancelled, Hemoglobin A1c 7.6 H, Magnesium 1.9, POC Glucose 186 H 07/06/25 06:58: POC Glucose 176 H 07/06/25 08:07: POC Glucose 169 H 07/06/25 09:03: POC Glucose 160 H 07/06/25 10:12: POC Glucose 138 H 07/06/25 11:31: POC Glucose 144 H 07/06/25 16:54: POC Glucose 181 H 07/06/25 21:17: POC Glucose 165 H 07/07/25 05:26: WBC 6.2, RBC 2.86 L, Hgb 9.5 L, Hct 27.7 L, MCV 96.9, MCH 33.2 H, MCHC 34.3, RDW Std Deviation 50.4 H, RDW Coeff of Itzel 14.1, Plt Count 187, MPV9.4, Neut % (Auto) Not Reportable, Sodium 136, Potassium 3.5, Chloride 105, Carbon Dioxide 18.4 L, Anion Gap 12, BUN 19, Creatinine 1.14, Estim Creat Clear Calc 88.48, Est GFR (MDRD) Non-Af 61, BUN/Creatinine Ratio 16.6, Glucose 223 H, Calcium 8.8 Micro: Microbiology 07/06/25 12:55 Stool Stool Occult Blood (TAMEKA) - Final 07/05/25 18:02 Urine, Clean Catch Urine Culture - Preliminary Gram negative becki 07/06/25 00:10 Nasal Secretion MRSA (PCR) - Final Physical Exam Narrative GENERAL: cooperative HEENT: Atraumatic; normocephalic EYES; Anicteric, Normal Conjunctiva NECK; supple, normal thyroid, RESPIRATORY: Diminished to auscultation CARDIOVASCULAR: Regular S1 S2, GI: soft, normoactive bowel sounds, : No Renal angle tenderness; EXTREMITIES: No edema, no clubbing, MUSCULOSKELETAL: no muscle wasting NEURO: Awake; no lateralizing signs. SKIN: No Rash PSYCH; Flat affect Assessment & Plan Assessment/Plan (1) Sepsis: (2) Complicated urinary tract infection: PLAN: Plan Patient is a 45-year-old lady who presented to the emergency department with some confusion was found to have hyperosmolar nonketotic state as well as sepsissecondary to UTI in addition to acute kidney injury admitted to the intensive care unit for further management 1. Acute metabolic encephalopathy ? Due to combination of hyperosmolar nonketotic state, sepsis secondary to UTI as well as acute kidney injury admitted to intensive care unit for further management 2. Hyperosmolar nonketotic state ? Patient was managed with insulin as well as IV fluid 3. Sepsis secondary to acute cystitis with E. coli ? Patient was managed per protocol with IV fluid broad-spectrum antibiotic therapy and cultures and cultures came back positive for E. coli 4. Acute kidney injury ? Secondary to hypovolemia patient was resuscitated with IV fluid patient creatinine had improved 5. Thrombocytopenia ? Secondary to sepsis platelet count had normalized at the time of discharge 6. Anemia The second is anemia of chronic disorder monitor H&H 7. Class II obesity with BMI of 44.1 As complicating care weight loss advised 8. Essential hypertension ? Patient was post on lisinopril which was held during her admission and resumedon discharge 8. GERD ? On PPI 9. Chronic migraines ? Patient is on Rimegepant as needed at home 10. Obstructive sleep apnea ? Consistent use of PAP therapy encouraged 11. Left shoulder impingement syndrome anxiety is ? Patient underwent Left shoulder arthroscopy, subacromial decompression, debridement on 06/23/2025. Left shoulder immobilized 12. DVT prophylaxis Has bilateral SCDs Charges/Coding Visit Charges Inpatient E&M: 62910 Subs Hosp L2 07/07/25815 <Electronically signed by Brittany Harrison MD> Cosigner Signature (if applicable): CC: ~ Signed [facility] Work Phone: 1(375) 562-994309-03-2025 Discharge summary [facility] Medical Records Department [address] [place] [address] Discharge Summary 07/07/25815 MR#: [id number] Acct: [id number] Name: TORI GRAY Rep #:[id number] : 1980 45 From: Brittany Harrison MD PCP: Dr. Ivette Grimes MD Status:ADM I N Location: ICU CVICU20 2-1 Providers Date of Admission: 07/05/25 Date of Discharge: 07/07/25 Primary Care Physician: Dr. Ivette Grimes MD Consultations 07/05/25 23:32 Consult: Bow Tacker / Pulmonary Medicine Routine Consulting Provider: Intensivists/Pulmonary Med Reason for Consult: HHS, Complicated UTI, JOHN EMERGENT Consult: No MD Notified: Yes Date Notified: 07/05/25 Time Notified: 21:51 Method of Notification: Text Reason For Visit: HHS, 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, JOHN, ACUTE ON CHRONIC ANEMIA Diagnosis Discharge Diagnosis (1) Sepsis: Status: Acute Code(s): A41.9 - Sepsis, unspecified organism (2) Complicated urinary tract infection: Status: Acute Code(s): N39.0 - Urinary tract infection, site not specified Plan Patient is a 45-year-old lady who presented to the emergency department with some confusion was found to have hyperosmolar nonketotic state as well as sepsissecondary to UTI in addition to acute kidney injury admitted to the intensive care unit for further management 1. Acute metabolic encephalopathy ? Due to combination of hyperosmolar nonketotic state, sepsis secondary to UTI as well as acute kidney injury admitted to intensive care unit for further management 2. Hyperosmolar nonketotic state ? Patient was managed with insulin as well as IV fluid 3. Sepsis secondary to acute cystitis with E. coli ? Patient was managed per protocol with IV fluid broad-spectrum antibiotic therapy and cultures andcultures came back positive for E. coli 4. Acute kidney injury ? Secondary to hypovolemia patient was resuscitated with IV fluid patient creatinine had improved 5. Thrombocytopenia ? Secondary to sepsis platelet count had normalized at the time of discharge 6. Anemia The second is anemia of chronic disorder monitor H&H 7. Class II obesity with BMI of 44.1 As complicating care weight loss advised 8. Essential hypertension ? Patient was post on lisinopril which was held during her admission and resumedon discharge 8. GERD ? On PPI 9. Chronic migraines ? Patient is on Rimegepant as needed at home 10. Obstructive sleep apnea ? Consistent use of PAP therapy encouraged 11. Left shoulder impingement syndrome anxiety is ? Patient underwent Left shoulder arthroscopy, subacromial decompression, debridement on 06/23/2025.Left shoulder immobilized 12. DVT prophylaxis Has bilateral SCDs Medications at Discharge Home Medications blood sugar diagnostic (Blood Glucose Test strips) #10 ea 04/26/20 ipratropium bromide 21 mcg (0.03 %) nasal spray 2 spray intranasal BID PRN allergies 08/23/20 albuterol sulfate 90 mcg/actuation aerosol inhaler 2 puff inhalation Q4H PRN shortness of breath orwheezing 08/10/22 fexofenadine 180 mg tablet (Allergy Relief (fexofenadine)) 180 mg PO DAILY allergies 08/10/22 levonorgestrel 17.5 mcg/24 hr (up to 5 yrs) 19.5mg intrauterine device 1 device intrauterine ONCE control 08/10/22 tizanidine 4 mg tablet 4 mg PO Q8H PRN Muscle Spasm 08/10/22 omeprazole 20 mg capsule,delayed release 20 mg PO DAILY PRN gerd 08/16/22 topiramate 100 mg tablet 100 mg PO BID seizures 08/16/22 fluoxetine 20 mg capsule 20 mg PO QHS mental health 12/28/22 gabapentin 300 mg capsule 300 mg PO QHS nerve pain 12/28/22 lisinopril 10 mg tablet 10 mg PO DAILY blood pressure 12/28/22 ondansetron HCl 4 mg tablet 4 mg PO Q8H PRN nausea 12/28/22 rimegepant 75 mg disintegrating tablet (Nurtec ODT) 75 mg PO DAILY PRN migraine headache 02/04/24 semaglutide 2 mg/dose (8 mg/3 mL) subcutaneous pen injector (Ozempic) 2 mg subcut QWEEK 07/05/25 BIPAP -Bilevel Positive Airway Pressure ([facility] INFORMATIONAL USE ONLY) 07/06/25 CPAP - Continuous Positive Airway Pressure([facility] INFORMATIONAL USE ONLY) 07/06/25 cefdinir 300 mg capsule 300 mg PO BID 7 days #14 caps 07/07/25 insulin glargine 100 unit/mL (3 mL) subcutaneous pen (Lantus Solostar U-100 Insulin) 10 unit (0.1 mL) subcut QPM #15 mL 07/07/25 pen needle, diabetic 31 gauge x 5/32" #100 ea 07/07/25 Hospital Course Summary of Care Provided Minutes Spent on Discharge: 32 Physical Exam Narrative GENERAL: cooperative HEENT: Atraumatic; normocephalic EYES; Anicteric, Normal Conjunctiva NECK; supple, normal thyroid, RESPIRATORY: Diminished to auscultation CARDIOVASCULAR: Regular S1 S2, GI: soft, normoactive bowel sounds, : No Renal angle tenderness; EXTREMITIES: No edema, no clubbing, MUSCULOSKELETAL: Left shoulder immobilized NEURO: Awake; no lateralizing signs. SKIN: No Rash PSYCH; Flat affect Weight / BMI Weight Weight: 127.8 kg Body Mass Index (BMI) 44.1 ABG / Lab / Microbiology Data 07/07/25 05:26 07/07/25 05:26 Laboratory: Laboratory Results - last 24 hr 07/06/25 03:07: POC Glucose 156 H 07/06/25 04:11: POC Glucose 187 H 07/06/25 05:07: POC Glucose 168 H 07/06/25 06:05: Magnesium 1.9, POC Glucose 186 H 07/06/25 06:58: POC Glucose 176 H 07/06/25 08:07: POC Glucose 169 H 07/06/25 09:03: POC Glucose 160 H 07/06/25 10:12: POC Glucose 138 H 07/06/25 11:31: POC Glucose 144 H 07/06/25 16:54: POC Glucose 181 H 07/06/25 21:17: POC Glucose 165 H 07/07/25 05:26: WBC 6.2, RBC 2.86 L, Hgb 9.5 L, Hct 27.7 L, MCV 96.9, MCH 33.2 H, MCHC 34.3, RDW Std Deviation 50.4 H, RDW Coeff of Itzel 14.1, Plt Count 187, MPV9.4, Neut % (Auto) Not Reportable, Sodium 136, Potassium 3.5, Chloride 105, Carbon Dioxide 18.4 L, Anion Gap 12, BUN 19, Creatinine 1.14, Estim Creat Clear Calc 88.48, Est GFR (MDRD) Non-Af 61, BUN/Creatinine Ratio 16.6, Glucose 223 H, Calcium 8.8 Microbiology: Microbiology 07/05/25 18:02 Urine, Clean Catch Urine Culture - Final Escherichia coli 07/06/25 12:55 Stool Stool Occult Blood (TAMEKA) - Final 07/06/25 00:10 Nasal Secretion MRSA (PCR) - Final D/C Instructions Discharge Activity: Return to Normal Activity Call your doctor if you observe: Fever of 101 or Higher, Shortness of breath, Fainting spells and Chest pain DC O2, CPAP, BIPAP Needs Home O2 Discharge instructions: No Meaningful Use Info Meaningful Use Meaningful Use Diagnoses (Choose all that apply): None applicable Discharge Plan Admission Admit Date/Time: 07/05/25 21:46 Attending Provider: Brittany Harrison Primary Care Provider: Ivette Grimes Consulting Providers: Shana Mendoza; Jose Juan Reinoso Discharge Orders/Prescriptions Prescriptions: New cefdinir 300 mg capsule 300 mg PO BID 7 Days Qty: 14 0RF insulin glargine [Lantus Solostar U-100 Insulin] 100 unit/mL (3 mL) insulin pen 10 unit subcut QPM Qty: 15 0RF (DME) pen needle, diabetic 31 gauge x 5/32" needle See Rx Instructions .ROUTE .MEDSUPPLY Qty: 100 0RF Rx Instructions: As directed Continued (DME) blood sugar diagnostic [Blood Glucose Test] [...] mg PO Q8H PRN (Reason: Muscle Spasm) Ozempic 2 mg/dose (8 mg/3 mL) pen injector 2 mg subcut QWEEK (DME) BIPAP -Bilevel Positive Airway Pressure ([facility] INFORMATIONAL USE ONLY) Device See Rx Instructions .ROUTE Patient Comments: VAuto: IPAP=19.2 EPAP=12.4 PS=6.8 Rx Instructions: As directed (DME) CPAP - Continuous Positive Airway Pressure([facility] INFORMATIONAL USE ONLY) Device See Rx Instructions .ROUTE Patient Comments: pt has her home unit at bedside, does not know her settings. Rx Instructions: As directed Nurtec ODT 75 mg tablet,disintegrating 75 mg PO DAILY PRN (Reason: migraine headache) Referrals / Follow Up: Ivette Grimes MD [Primary Care Provider] - In 1 Week Disposition Disposition (needs filled in before D/C Order can be placed): Home, Self Care Charges/Coding Visit Charges Inpatient E&M: 14579 Disch Hosp >30min 07/07/25 0829 Cosigner Signature (if applicable): CC: Dr. Brittany Harrison MD; Dr. Ivette Grimes MD~ Signed [facility]09[facility]03[facility] Progress note [facility] Medical Records Department [address] [place] [address] Progress Note - Hospitalist 07/07/25 0719 MR#: [id number] Acct: [id number] Name: TORI GRAY Rep #:[id number] : 1980 45 From: Brittany Harrison MD PCP: Dr. Ivette Grimes MD Status:ADM I N Location: ICU CVICU20 2-1 Reason for Visit Chief Complaint: Altered mentation, elevated BS, dark urine, suprapubic discomfort, polydipsia. Subjective Subjective Patient is a 45-year-old lady who presented to the emergency department with some confusion was found to have hyperosmolar nonketotic state as well as sepsissecondary to UTI in addition to acute kidney injury admitted to the intensive care unit for further management Objective Data Objective Data Vital Signs: Vital Signs Temp Pulse Resp BP Pulse Ox O2 Del Method 98.1 F 61 18 117/74 96 Room Air 07/07/25 04:00 07/07/25 06:00 07/07/25 06:00 07/07/25 06:00 07/07/25 07:15 07/07/25 07:15 Oxygen Delivery Method Room Air Weight: 127.8 kg Body Mass Index (BMI) 44.1 Intake & Output: Intake and Output for Last 24 Hours 07/05/25 07/06/25 07/07/25 23:59 23:59 23:59 Intake Total 2074.75 / 2074.75 2826.87 / 2826.87 Output Total 0 / 0 Balance 2074.75 / 2074.75 2826.87 / 2826.87 Lab / Micro Data 07/07/25 05:26 07/07/25 05:26 Labs: Laboratory Results - last 24 hr 07/06/25 03:07: POC Glucose 156 H 07/06/25 04:11: POC Glucose 187 H 07/06/25 05:07: POC Glucose 168 H 07/06/25 06:05: Sodium Cancelled, Potassium Cancelled, Chloride Cancelled, Carbon Dioxide Cancelled, Anion Gap Cancelled, Hemoglobin A1c 7.6 H, Magnesium 1.9, POC Glucose 186 H 07/06/25 06:58: POC Glucose 176 H 07/06/25 08:07: POC Glucose 169 H 07/06/25 09:03: POC Glucose 160 H 07/06/25 10:12: POC Glucose 138 H 07/06/25 11:31: POC Glucose 144 H 07/06/25 16:54: POC Glucose 181 H 07/06/25 21:17: POC Glucose 165 H 07/07/25 05:26: WBC 6.2, RBC 2.86 L, Hgb 9.5 L, Hct 27.7 L, MCV 96.9, MCH 33.2 H, MCHC 34.3, RDW Std Deviation 50.4 H, RDW Coeff of Itzel 14.1, Plt Count 187, MPV9.4, Neut % (Auto) Not Reportable, Sodium 136, Potassium 3.5, Chloride 105, Carbon Dioxide 18.4 L, Anion Gap 12, BUN 19, Creatinine 1.14, Estim Creat Clear Calc 88.48, Est GFR (MDRD) Non-Af 61, BUN/Creatinine Ratio 16.6, Glucose 223 H, Calcium 8.8 Micro: Microbiology 07/06/25 12:55 Stool Stool Occult Blood (TAMEKA) - Final 07/05/25 18:02 Urine, Clean Catch Urine Culture - Preliminary Gram negative becki 07/06/25 00:10 Nasal Secretion MRSA (PCR) - Final Physical Exam Narrative GENERAL: cooperative HEENT: Atraumatic; normocephalic EYES; Anicteric, Normal Conjunctiva NECK; supple, normal thyroid, RESPIRATORY: Diminished to auscultation CARDIOVASCULAR: Regular S1 S2, GI: soft, normoactive bowel sounds, : No Renal angle tenderness; EXTREMITIES: No edema, no clubbing, MUSCULOSKELETAL: no muscle wasting NEURO: Awake; no lateralizing signs. SKIN: No Rash PSYCH; Flat affect Assessment & Plan Assessment/Plan (1) Sepsis: (2) Complicated urinary tract infection: PLAN: Plan Patient is a 45-year-old lady who presented to the emergency department with some confusion was found to have hyperosmolar nonketotic state as well as sepsissecondary to UTI in addition to acute kidney injury admitted to the intensive care unit for further management 1. Acute metabolic encephalopathy ? Due to combination of hyperosmolar nonketotic state, sepsis secondary to UTI as well as acute kidney injury admitted to intensive care unit for further management 2. Hyperosmolar nonketotic state ? Patient was managed with insulin as well as IV fluid 3. Sepsis secondary to acute cystitis with E. coli ? Patient was managed per protocol with IV fluid broad-spectrum antibiotic therapy and cultures andcultures came back positive for E. coli 4. Acute kidney injury ? Secondary to hypovolemia patient was resuscitated with IV fluid patient creatinine had improved 5. Thrombocytopenia ? Secondary to sepsis platelet count had normalized at the time of discharge 6. Anemia The second is anemia of chronic disorder monitor H&H 7. Class II obesity with BMI of 44.1 As complicating care weight loss advised 8. Essential hypertension ? Patient was post on lisinopril which was held during her admission and resumedon discharge 8. GERD ? On PPI 9. Chronic migraines ? Patient is on Rimegepant as needed at home 10. Obstructive sleep apnea ? Consistent use of PAP therapy encouraged 11. Left shoulder impingement syndrome anxiety is ? Patient underwent Left shoulder arthroscopy, subacromial decompression, debridement on 06/23/2025.Left shoulder immobilized 12. DVT prophylaxis Has bilateral SCDs Charges/Coding Visit Charges Inpatient E&M: 64289 Subs Hosp L2 07/07/25 0816 Cosigner Signature (if applicable): CC: ~ Signed [facility]09-02-2025 Progress note Author Jose Juan Reinoso [facility] Note Date/Time July 06, 2025 11:32am [facility] Medical Records Department [address] [place] [address] Progress Note - Hospitalist 07/06/25950 MR#: [id number] Acct: [id number] Name: TORI GRAY Rep #:[id number] : 1980 45 From: Jose Juan petersen MD PCP: Dr. Ivette Grimes MD Status:ADM I N Location: ICU CVICU20 2-1 Subjective Subjective No major issues overnight, blood sugars appear to be stabilized. Can advance diet and start on subcu insulin Objective Data Objective Data Vital Signs: Vital Signs Temp Pulse Resp BP Pulse Ox O2 Del Method 97.1 F L 70 18 115/53 L 97 Room Air 07/06/25 08:00 07/06/25 08:00 07/06/25 08:00 07/06/25 08:00 07/06/25 09:23 07/06/25 09:23 Oxygen Delivery Method Room Air Weight: 285 lb 11.505 oz Body Mass Index (BMI) 44.8 Intake & Output: Intake and Output for Last 24 Hours 07/05/25 07/06/25 07/07/25 03:59 03:59 03:59 Intake Total 1547.51 / 1547.51 1026.41 / 1026.41 Output Total 0 / 0 Balance 1547.51 / 1547.51 1026.41 / 1026.41 Lab / Micro Data 07/06/25 06:05 07/06/25 06:05 Labs: Laboratory Results - last 24 hr 07/05/25 17:40: POC Glucose 459 H* 07/05/25 17:48: WBC 6.9, RBC 2.94 L, Hgb 9.5 L, Hct 28.2 L, MCV 95.9, MCH 32.3 H, MCHC 33.7, RDW Std Deviation 48.8 H, RDW Coeff of Itzel 13.8, Plt Count 136 L, MPV 10.4, Immature Gran % (Auto) 0.900, Neut % (Auto) 77.6 H, Lymph % (Auto) 14.4 L, [place] % (Auto) 5.8, Eos % (Auto) 0.9, Baso % (Auto) 0.4, Absolute Neuts (auto) 5.3, Absolute Lymphs (auto) 0.99, Nucleated RBC % 0, Sodium 128 L, Potassium 3.8, Chloride 98, Carbon Dioxide 15.0 L, Anion Gap 15, BUN 41 H, Creatinine 1.98 H, Estim Creat Clear Calc 51.75, Est GFR (MDRD) Non-Af 32 L, BUN/Creatinine Ratio 20.7 H, Glucose 533 H*, Lactic Acid 2.2 H*, Calcium 8.3, Phosphorus 3.0, Magnesium 2.2, Total Bilirubin 0.57, AST 19, ALT 26, Alkaline Phosphatase 183 H, Total Protein 7.1, Albumin 3.3 L, Globulin 3.7, Albumin/Globulin Ratio 0.9, b-Hydroxybutyric mmol/L 0.1 07/05/25 18:02: Urine Color Straw, Urine Clarity Sl. Cloudy, Urine pH 6.0, Ur Specific Banks 1.010, Urine Protein 30 H, Urine Glucose (UA) 1000 H, Urine Ketones Negative, Urine Occult Blood 150 H, Urine Nitrite Negative, Urine Bilirubin Negative, Urine Urobilinogen Normal, Ur Leukocyte Esterase 100 H, Urine RBC 5-10 SEEN, Urine WBC 10-25 SEEN, Ur Squamous Epith Cells 5-10 SEEN, Urine Bacteria 3+, Urine Mucus 0 SEEN 07/05/25 20:26: POC Glucose 369 H 07/05/25 20:45: Sodium 130 L 07/05/25 20:45: Sodium 130 L, Potassium 3.6 07/05/25 20:45: Potassium 3.6, Chloride 101 07/05/25 20:45: Chloride 101, Carbon Dioxide 17.3 L 07/05/25 20:45: Carbon Dioxide 15.9 L, Anion Gap 11 07/05/25 20:45: Anion Gap 13, Serum Osmolality 307 H, Iron 12 L, TIBC 166 L, Iron Saturation 7.2 L, Unsaturated IBC 154 L, Ferritin 601 H 07/05/25 21:35: POC Glucose 321 H 07/05/25 22:38: POC Glucose 265 H 07/05/25 22:40: Lactic Acid 1.5 07/05/25 23:54: POC Glucose 211 H 07/06/25 00:52: POC Glucose 165 H 07/06/25 02:05: Sodium 133, Potassium 3.4, Chloride 104, Carbon Dioxide 17.4 L, Anion Gap 12 07/06/25 02:06: POC Glucose 164 H 07/06/25 03:07: POC Glucose 156 H 07/06/25 04:11: POC Glucose 187 H 07/06/25 05:07: POC Glucose 168 H 07/06/25 06:05: WBC 6.4, RBC 2.63 L, Hgb 8.7 L, Hct 25.4 L, MCV 96.6, MCH 33.1 H, MCHC 34.3, RDW Std Deviation 49.3 H, RDW Coeff of Itzel 13.9, Plt Count 145 L, MPV 9.9, Immature Gran % (Auto) 1.400 H, Neut % (Auto) 73.6 H, Lymph % (Auto) 16.7 L, [place] % (Auto) 6.6, Eos % (Auto) 1.4, Baso % (Auto) 0.3, Absolute Neuts (auto) 4.7, Absolute Lymphs (auto) 1.07, Nucleated RBC % 0, Sodium Cancelled 07/06/25 06:05: Sodium 134 07/06/25 06:05: Sodium Cancelled, Potassium Cancelled 07/06/25 06:05: Potassium 3.4 07/06/25 06:05: Potassium Cancelled, Chloride Cancelled 07/06/25 06:05: Chloride 106 07/06/25 06:05: Chloride Cancelled, Carbon Dioxide Cancelled 07/06/25 06:05: Carbon Dioxide 17.0 L 07/06/25 06:05: Carbon Dioxide Cancelled, Anion Gap Cancelled 07/06/25 06:05: Anion Gap 11 07/06/25 06:05: Anion Gap Cancelled, BUN 29 H, Creatinine 1.47 H, Estim Creat Clear Calc 69.18, Est GFR (MDRD) Non-Af 45 L, BUN/Creatinine Ratio 19.4, [id number] H, Hemoglobin A1c 7.6 H, Calcium 8.1, Phosphorus 2.4 L, Magnesium 1.9, TotalBilirubin 0.41, AST 15, ALT 23, Alkaline Phosphatase 102, Total Protein 6.4, Albumin 3.1 L, Globulin 3.3, Albumin/Globulin Ratio 1.0, POC Glucose 186 H 07/06/25 06:58: POC Glucose 176 H 07/06/25 08:07: POC Glucose 169 H 07/06/25 09:03: POC Glucose 160 H Micro: Microbiology 07/05/25 18:02 Urine, Clean Catch Urine Culture - Preliminary Gram negative becki 07/06/25 00:10 Nasal Secretion MRSA (PCR) - Final ABG Data ABG results: ABG 07/05/25 17:55 Specimen Type SHIRA Sample Site Not entered VBG pH 7.32 VBG pO2 77 H VBG HCO3 16 L VBG Total CO2 17 L VBG O2 Sat (Calc) 94 H VBG Base Excess -10 L POC Mix VBG pCO2 Pt Tmp 31.6 L O2 Delivery Device Not entered Radiography Diagnostic Testing: Radiology Impression Chest X-Ray 07/05/25 18:27 IMPRESSION: Cardiomegaly with mild vascular congestion. No airspace consolidation or sizable pleural effusion. Reading Location: [id number] Abdomen/Pelvis CT 07/05/25 22:18 IMPRESSION: 1. A 10 mm stone at the left UPJ resulting in mild left hydronephrosis. 2. Mildly prominent reactive left para-aortic lymph nodes. Reading [id number] Physical Exam Narrative General: Alert, Oriented x3, Cooperative, No apparent distress HEENT: Atraumatic, PERRLA, EOMI, Normocephalic Oral: Moist Mucosa Neck: Supple, No JVD Lungs: Diminished, Normal air movement, No rhonchi, No wheeze, No rales Cardiovascular: Regular rate, Regular Rhythm, Normal S1, Normal S2, No murmurs Abdomen: Soft, Non Tender, Non-Distended, No Hepato-splenomegaly Extremities: No edema, Capillary Refill Less than 3 Seconds Skin: No rashes, No breakdown Musculoskeletal: Left shoulder is in a sling Neurological: No focal neurological deficits, Motor Exam 5/5 strength throughout, Sensory exam intact to light touch and pain Psych/Mental Status: Normal Affect, Appropriate Assessment & Plan Assessment/Plan (1) Sepsis: (2) Complicated urinary tract infection: PLAN: Plan 1. HHS in the setting of type 2 diabetes ? Will transition to sliding scale insulin ? Accu-Cheks ? Advance diet and continue to monitor ? This may have been precipitated by the UTI 2. Sepsis secondary to UTI with JOHN ? She met sepsis criteria secondary to lactic acid greater than 2 and bicarb less than 20 ? Continue with antibiotics ? Cultures are pending ? Baseline creatinine is around 0.8 and her creatinine on admission was 1.98, itis improving we will continue to monitor 3. Acute on chronic anemia/thrombocytopenia ? Thrombocytopenia likely reactive to the sepsis ? However the iron studies show an anemia of chronic disease or anemia of inflammation ? Will await fecal occult 4. Essential HTN ? Will hold her home blood pressure medications ? Will monitor make adjustments as necessary 5. Anxiety/depression ? Stable ? Continue with her home medications 6. GERD ? Stable ? Continue with PPI DVT: SCDs Charges/Coding Visit Charges Inpatient E&M: 62610 Subs Hosp L2 07/06/25 1132 <Electronically signed by Jose Juan Reinoso MD> Cosigner Signature (if applicable): CC: ~ Signed [facility] Work Phone: 1(529) 516-146909-02-2025 Progress note [facility] Medical Records Department [address] [place] [address] Progress Note - Hospitalist 07/06/2551 MR#: [id number] Acct: [id number] Name: TORI GRAY Rep #:[id number] : 1980 45 From: Jose Juan petersen MD PCP: Dr. Ivette Grimes MD Status:ADM I N Location: ICU CVICU20 2-1 Subjective Subjective No major issues overnight, blood sugars appear to be stabilized. Can advance diet and start on subcu insulin Objective Data Objective Data Vital Signs: Vital Signs Temp Pulse Resp BP Pulse Ox O2 Del Method 97.1 F L 70 18 115/53 L 97 Room Air 07/06/25 08:00 07/06/25 08:00 07/06/25 08:00 07/06/25 08:00 07/06/25 09:23 07/06/25 09:23 Oxygen Delivery Method Room Air Weight: 285 lb 11.505 oz Body Mass Index (BMI) 44.8 Intake & Output: Intake and Output for Last 24 Hours 07/05/25 07/06/25 07/07/25 03:59 03:59 03:59 Intake Total 1547.51 / 1547.51 1026.41 / 1026.41 Output Total 0 / 0 Balance 1547.51 / 1547.51 1026.41 / 1026.41 Lab / Micro Data 07/06/25 06:05 07/06/25 06:05 Labs: Laboratory Results - last 24 hr 07/05/25 17:40: POC Glucose 459 H* 07/05/25 17:48: WBC 6.9, RBC 2.94 L, Hgb 9.5 L, Hct 28.2 L, MCV 95.9, MCH 32.3 H, MCHC 33.7, RDW Std Deviation 48.8 H, RDW Coeff of Itzel 13.8, Plt Count 136 L, MPV 10.4, Immature Gran % (Auto) 0.900, Neut % (Auto) 77.6 H, Lymph % (Auto) 14.4 L, [place] % (Auto) 5.8, Eos % (Auto) 0.9, Baso % (Auto) 0.4,Absolute Neuts (auto) 5.3, Absolute Lymphs (auto) 0.99, Nucleated RBC % 0, Sodium 128 L, Potassium 3.8, Chloride 98, Carbon Dioxide 15.0 L, Anion Gap 15, BUN 41 H, Creatinine 1.98 H, Estim Creat Clear Calc 51.75, Est GFR (MDRD) Non-Af 32 L, BUN/Creatinine Ratio 20.7 H, Glucose 533 H*, Lactic Acid 2.2 H*, Calcium 8.3, Phosphorus 3.0, Magnesium 2.2, Total Bilirubin 0.57, AST 19, ALT 26, Alkaline Phosphatase 183 H, Total Protein 7.1, Albumin 3.3 L, Globulin 3.7, Albumin/Globulin Ratio 0.9, b-Hydroxybutyric mmol/L 0.1 07/05/25 18:02: Urine Color Straw, Urine Clarity Sl. Cloudy, Urine pH 6.0, Ur Specific [place] 1.010, Urine Protein 30 H, Urine Glucose (UA) 1000 H, Urine Ketones Negative, Urine Occult Blood 150 H, Urine Nitrite Negative, Urine Bilirubin Negative, Urine Urobilinogen Normal, Ur Leukocyte Esterase 100 H, Urine RBC 5-10 SEEN, Urine WBC 10-25 SEEN, Ur Squamous Epith Cells 5-10 SEEN, Urine Bacteria 3+, Urine Mucus 0 SEEN 07/05/25 20:26: POC Glucose 369 H 07/05/25 20:45: Sodium 130 L 07/05/25 20:45: Sodium 130 L, Potassium 3.6 07/05/25 20:45: Potassium 3.6, Chloride 101 07/05/25 20:45: Chloride 101, Carbon Dioxide 17.3 L 07/05/25 20:45: Carbon Dioxide 15.9 L, Anion Gap 11 07/05/25 20:45: Anion Gap 13, Serum Osmolality 307 H, Iron 12 L, TIBC 166 L, Iron Saturation 7.2 L,Unsaturated IBC 154 L, Ferritin 601 H 07/05/25 21:35: POC Glucose 321 H 07/05/25 22:38: POC Glucose 265 H 07/05/25 22:40: Lactic Acid 1.5 07/05/25 23:54: POC Glucose 211 H 07/06/25 00:52: POC Glucose 165 H 07/06/25 02:05: Sodium 133, Potassium 3.4, Chloride 104, Carbon Dioxide 17.4 L, Anion Gap 12 07/06/25 02:06: POC Glucose 164 H 07/06/25 03:07: POC Glucose 156 H 07/06/25 04:11: POC Glucose 187 H 07/06/25 05:07: POC Glucose 168 H 07/06/25 06:05: WBC 6.4, RBC 2.63 L, Hgb 8.7 L, Hct 25.4 L, MCV 96.6, MCH 33.1 H, MCHC 34.3, RDW Std Deviation 49.3 H, RDW Coeff of Itzel 13.9, Plt Count 145 L, MPV 9.9, Immature Gran % (Auto) 1.400 H,Neut % (Auto) 73.6 H, Lymph % (Auto) 16.7 L, [place] % (Auto) 6.6, Eos % (Auto) 1.4, Baso % (Auto) 0.3, Absolute Neuts (auto) 4.7, Absolute Lymphs (auto) 1.07, Nucleated RBC % 0, Sodium Cancelled 07/06/25 06:05: Sodium 134 07/06/25 06:05: Sodium Cancelled, Potassium Cancelled 07/06/25 06:05: Potassium 3.4 07/06/25 06:05: Potassium Cancelled, Chloride Cancelled 07/06/25 06:05: Chloride 106 07/06/25 06:05: Chloride Cancelled, Carbon Dioxide Cancelled 07/06/25 06:05: Carbon Dioxide 17.0 L 07/06/25 06:05: Carbon Dioxide Cancelled, Anion Gap Cancelled 07/06/25 06:05: Anion Gap 11 07/06/25 06:05: Anion Gap Cancelled, BUN 29 H, Creatinine 1.47 H, Estim Creat Clear Calc 69.18, EstGFR (MDRD) Non-Af 45 L, BUN/Creatinine Ratio 19.4, Hmncosq077 H, Hemoglobin A1c 7.6 H, Calcium 8.1,Phosphorus 2.4 L, Magnesium 1.9, TotalBilirubin 0.41, AST 15, ALT 23, Alkaline Phosphatase 102, Total Protein 6.4, Albumin 3.1 L, Globulin 3.3, Albumin/Globulin Ratio 1.0, POC Glucose 186 H 07/06/25 06:58: POC Glucose 176 H 07/06/25 08:07: POC Glucose 169 H 07/06/25 09:03: POC Glucose 160 H Micro: Microbiology 07/05/25 18:02 Urine, Clean Catch Urine Culture - Preliminary Gram negative becki 07/06/25 00:10 Nasal Secretion MRSA (PCR) - Final ABG Data ABG results: ABG 07/05/25 17:55 Specimen Type SHIRA Sample Site Not entered VBG pH 7.32 VBG pO2 77 H VBG HCO3 16 L VBG Total CO2 17 L VBG O2 Sat (Calc) 94 H VBG Base Excess -10 L POC Mix VBG pCO2 Pt Tmp 31.6 L O2 Delivery Device Not entered Radiography Diagnostic Testing: Radiology Impression Chest X-Ray 07/05/25 18:27 IMPRESSION: Cardiomegaly with mild vascular congestion. No airspace consolidation or sizable pleural effusion. Reading Location: [id number] Abdomen/Pelvis CT 07/05/25 22:18 IMPRESSION: 1. A 10 mm stone at the left UPJ resulting in mild left hydronephrosis. 2. Mildly prominent reactive left para-aortic lymph nodes. Reading Location: [id number] Physical Exam Narrative General: Alert, Oriented x3, Cooperative, No apparent distress HEENT: Atraumatic, PERRLA, EOMI, Normocephalic Oral: Moist Mucosa Neck: Supple, No JVD Lungs: Diminished, Normal air movement, No rhonchi, No wheeze, No rales Cardiovascular: Regular rate, Regular Rhythm, Normal S1, Normal S2, No murmurs Abdomen: Soft, Non Tender, Non-Distended, No Hepato-splenomegaly Extremities: No edema, Capillary Refill Less than 3 Seconds Skin: No rashes, No breakdown Musculoskeletal: Left shoulder is in a sling Neurological: No focal neurological deficits, Motor Exam 5/5 strength throughout, Sensory exam intact to light touch and pain Psych/Mental Status: Normal Affect, Appropriate Assessment & Plan Assessment/Plan (1) Sepsis: (2) Complicated urinary tract infection: PLAN: Plan 1. HHS in the setting of type 2 diabetes ? Will transition to sliding scale insulin ? Accu-Cheks ? Advance diet and continue to monitor ? This may have been precipitated by the UTI 2. Sepsis secondary to UTI with JOHN ? She met sepsis criteria secondary to lactic acid greater than 2 and bicarb less than 20 ? Continue with antibiotics ? Cultures are pending ? Baseline creatinine is around 0.8 and her creatinine on admission was 1.98, itis improving we will continue to monitor 3. Acute on chronic anemia/thrombocytopenia ? Thrombocytopenia likely reactive to the sepsis ? However the iron studies show an anemia of chronic disease or anemia of inflammation ? Will await fecal occult 4. Essential HTN ? Will hold her home blood pressure medications ? Will monitor make adjustments as necessary 5. Anxiety/depression ? Stable ? Continue with her home medications 6. GERD ? Stable ? Continue with PPI DVT: SCDs Charges/Coding Visit Charges Inpatient E&M: 23747 Subs Hosp L2 07/06/25 1132 Cosigner Signature (if applicable): CC: ~ Signed [facility]09-02-2025 Telephone encounter Note* Telephone Encounter - Little Murphy MA - 07/06/2025 10:17 AM EDT Patient is currently admitted to the [facility]. [facility]09-02-2025 Miscellaneous Notes* Telephone Encounter - Little Murphy MA - 07/06/2025 10:17 AM EDT Patient is currently admitted to the [facility]. [facility] History and physical note Author Shana Mendoza [facility] Note Date/Time July 06, 2025 1:39am [facility] Medical Records Department [address] [place] [address] H&P Exam - Hospitalist 07/05/252134 MR#: [id number] Acct: [id number] Name: TORI GRAY Rep #:[id number] : 1980 45 From: Shana Mendoza MD PCP: Dr. Ivette Grimes MD Status:ADM I N Location: ICU CVICU20 2-1 HPI - General General Date of Admission: 07/05/25 Date of Service: 07/05/25 Chief Complaint: Altered mentation, elevated BS, dark urine, suprapubic discomfort, polydipsia. HPI Narrative The patient is a 45 y/o F w/ PMHx: Morbid obesity, Diabetes mellitus type II with chronic neuropathy, LETITIA on BIPAP q HS, HTN, Anxiety and Depression, GERD, Chronic migraines, s/p L shoulder surgery secondary L shoulder impingement syndrome with bursitis 06/23/[address] Quiroga with subacromial decompression and debridement with arthroscopy who presents to the [facility] ED on 07/05/2025 with history of altered mental status, polyuria, polydipsia, elevated blood sugars as well as dyspnea complaint with family noting that they have been receiving texts from her that were nonsensical with additionally reported decreased urine output that has been significantly dark in color with subjective fever and chills and general Pia's with nausea but no emesis and possibly intermittent diarrhea with mild suprapubic discomfort but no flank painprompting eventual ED evaluation to be cautious. Workup in the ED included T98.6, heart rate 78, BP 106/46, respiratory rate 18, 96% on room air with BP transiently decreasing while in the ED down to 83/61 with a MAP of 67 however most recent repeat vitals T100 oral, heart rate 72, BP 102/47, MAP 65, respiratory rate 22, 96% on room air, CBC with WBC 6.9, hemoglobin 9.5, MCV 95.9, platelet 136 without significant shift, VBG with PO277, bicarb 16, total CO2 17, CMP with sodium 130, potassium 3.6, chloride 101, carbon dioxide 17.3, anion gap 11, BUN/creatinine 41/1.98, GFR 32, glucose 533, lactic acid 2.2, hepatic profile not marked appearing aside from alk phos 183, beta hydroxybutyrate level 0.1, urinalysis with cloudy appearing urine, specific gravity 1.010, protein 30, glucose thousand, negative ketone, occult blood 150, negative nitrite, leukocyte Estrace 100 with urine WBCs 10-25 although squamous epithelial cells of note are 5-10 however there is 3+ urine bacteria, chest x-ray with cardiomegaly with questionable mild vascular congestion with no other acute findings, blood culture x 2 pending per ED, urine culture pending per ED. In the ED patient administered aggressive IV fluid hydration, Tylenol 650 mg p.o. x 1, Rocephin 2 g IV x 1, transition to maintenance IV fluids at 150 mL/h, initiated on insulin drip. [facility] Medical History Impingement of left shoulder Diabetes Fatty liver [...] 11/10/24 History tablet (Nurtec ODT) headache semaglutide 2 mg/dose (8 mg/3 mL) 2 mg subcut QWEEK Unknown History subcutaneous pen injector (Ozempic) Allergy/AdvReac Type Severity Reaction Status Date / Time Corticosteroids Allergy Hives Verified 07/05/25 17:33 (Glucocorticoids) (steroids) lidocaine AdvReac Intermediate Hives Verified 07/05/25 17:33 Family History Father Diabetes Myocardial infarction Pancreatic cancer Mother Alcohol abuse Drug abuse Grandfather Diabetes Grandmother Lung cancer Grandmother Heart disease Triple bypass surgery Surgical History History of urethral stent (~2018) Hx laparoscopic cholecystectomy (~2005) H/O: (~2005) Social History household members: none Smoking Status: Never smoker alcohol intake: never substance use type: does not use caffeine: Yes Type: coffee what type of physical activity do you participate in: walking frequency: daily seatbelt use: always do you feel safe at home: Yes ROS ROS Narrative Admission Review of Systems: CONSTITUTIONAL: No weight loss, + fever, chills, weakness or fatigue. HEENT: Eyes: No visual loss, blurred vision, double vision or yellow sclerae. Ears, Nose, Throat: No hearing loss, sneezing, congestion, runny nose or sore throat. SKIN: No rash or itching, lesions, wounds. CARDIOVASCULAR: No chest pain, chest pressure or chest discomfort, palpitations,edema, orthopnea, syncopal events. RESPIRATORY: + Dyspnea. No cough or sputum, wheezing, hemoptysis. GASTROINTESTINAL: + anorexia, nausea, loose stools. No vomiting, abdominal pain, melena, BRBPR. GENITOURINARY: + Suprapubic discomfort, decreased urine output, dark appearing urine. No urgency or retention. NEUROLOGICAL: + Altered mentation, chronic bilateral lower extremity neuropathy. No headache, dizziness, syncope, paralysis, ataxia, focal weakness, change in bowel or bladder control, seizure. MUSCULOSKELETAL: + muscle, back pain, joint pain or stiffness. HEMATOLOGIC: + Acute on possibly chronic anemia of unclear etiology, no specificeasy history of bleeding or bruising. LYMPHATICS: No enlarged nodes. No history of splenectomy. PSYCHIATRIC: + History of anxiety and depression. ENDOCRINOLOGIC: No reports of sweating, cold or heat intolerance. + polydipsia. ALLERGIES:+ History of hives, allegic rhinitis. Vital Signs Vital Signs Vital Signs: 07/05/25 17:32 07/05/25 17:34 07/05/25 17:36 Temperature 98.6 F 98.6 F Temperature Source Oral Oral Pulse Rate 78 76 Respiratory Rate 18 21 H Respiratory Effort Normal Non-Labored Respiratory Depth Normal Respiratory Pattern Normal Blood Pressure 106/46 L 127/65 H Blood Pressure Mean 66 85 Pulse Ox 96 98 Oxygen Delivery Method Room Air Room Air Room Air 07/05/25 18:08 07/05/25 18:15 07/05/25 18:15 Temperature Temperature Source Pulse Rate 76 72 Respiratory Rate 20 H 24 H Respiratory Effort Respiratory Depth Respiratory Pattern Blood Pressure 118/61 118/61 Blood Pressure Mean 77 77 Pulse Ox 98 98 Oxygen Delivery Method 07/05/25 18:30 07/05/25 18:36 07/05/25 18:38 Temperature 99.7 F H Temperature Source Oral Pulse Rate 74 74 Respiratory Rate 24 H 24 H Respiratory Effort Respiratory Depth Respiratory Pattern Blood Pressure 83/61 L 114/55 L 114/55 L Blood Pressure Mean 67 74 71 Pulse Ox 97 96 98 Oxygen Delivery Method Room Air 07/05/25 18:45 07/05/25 19:00 07/05/25 19:00 Temperature 99.9 F H Temperature Source Oral Pulse Rate 72 76 71 Respiratory Rate 19 H 21 H 26 H Respiratory Effort Respiratory Depth Respiratory Pattern Blood Pressure 116/54 L 108/53 L 108/53 L Blood Pressure Mean 70 71 68 Pulse Ox 100 97 97 Oxygen Delivery Method Room Air 07/05/25 19:22 07/05/25 19:50 07/05/25 21:00 Temperature 99.9 F H 100 F H Temperature Source Oral Pulse Rate 71 73 72 Respiratory Rate 20 H 24 H 22 H Respiratory Effort Respiratory Depth Respiratory Pattern Blood Pressure 101/53 L 97/56 L 102/47 L Blood Pressure Mean 69 69 65 Pulse Ox 98 100 96 Oxygen Delivery Method Room Air Room Air Weight Weight: 289 lb 7.471 oz Body Mass Index (BMI) 45.3 Physical Exam Narrative Physical Examination: General: Awake, alert, oriented x 3 and cooperative, seated upright in ED bed inno apparent distress, fatigued and ill-appearing. Skin: Normal color, normal turgor, no icterus, no cyanosis except occasional stage ecchymoses, abrasion, status post recent left shoulder surgery with Steri-Strips still intact over trocar incisions, well-appearing, no drainage, no redness. HEENT: AT/NC, EOMI, PERRLA, dry MM, no carotid bruits, difficult to discern JVD given thickened neck. Lungs: CTA bilaterally, moderate effort, mild decrease BL bases, no rales, ronchi or wheezing. Heart: Regular rate and rhythm; no gallop, rub audible. Abdomen: Soft, morbidly obese, NTTP no suprapubic tenderness elicited, distant BS, difficult to discern distention and HSM given habitus. Extremities: No cyanosis, no clubbing, no significant distal edema noted. Neurological: Patient awake, alert, oriented as noted, cognitive function intact; pupils equally reactive to light and accommodation, cranial nerves grossly normal, moving all 4 extremities, no focal deficits, strength moderatelyto severely globally decreased secondary to acute presentation. Psychiatric: Affect appears flat, fatigued, ill-appearing, no acute evidence of depressive or anxiety feelings. Results Lab / Micro Data 07/05/25 17:48 07/05/25 20:45 Labs: Laboratory Results - last 24 hr 07/05/25 17:40: POC Glucose 459 H* 07/05/25 17:48: WBC 6.9, RBC 2.94 L, Hgb 9.5 L, Hct 28.2 L, MCV 95.9, MCH 32.3 H, MCHC 33.7, RDW Std Deviation 48.8 H, RDW Coeff of Itzel 13.8, Plt Count 136 L, MPV 10.4, Immature Gran % (Auto) 0.900, Neut % (Auto) 77.6 H, Lymph % (Auto) 14.4 L, [place] % (Auto) 5.8, Eos % (Auto) 0.9, Baso % (Auto) 0.4, Absolute Neuts (auto) 5.3, Absolute Lymphs (auto) 0.99, Nucleated RBC % 0, Sodium 128 L, Potassium 3.8, Chloride 98, Carbon Dioxide 15.0 L, Anion Gap 15, BUN 41 H, Creatinine 1.98 H, Estim Creat Clear Calc 51.75, Est GFR (MDRD) Non-Af 32 L, BUN/Creatinine Ratio 20.7 H, Glucose 533 H*, Lactic Acid 2.2 H*, Calcium 8.3, Phosphorus 3.0, Magnesium 2.2, Total Bilirubin 0.57, AST 19, ALT 26, Alkaline Phosphatase 183 H, Total Protein 7.1, Albumin 3.3 L, Globulin 3.7, Albumin/Globulin Ratio 0.9, b-Hydroxybutyric mmol/L 0.1 07/05/25 18:02: Urine Color Straw, Urine Clarity Sl. Cloudy, Urine pH 6.0, Ur Specific Banks 1.010, Urine Protein 30 H, Urine Glucose (UA) 1000 H, Urine Ketones Negative, Urine Occult Blood 150 H, Urine Nitrite Negative, Urine Bilirubin Negative, Urine Urobilinogen Normal, Ur Leukocyte Esterase 100 H, Urine RBC 5-10 SEEN, Urine WBC 10-25 SEEN, Ur Squamous Epith Cells 5-10 SEEN, Urine Bacteria 3+, Urine Mucus 0 SEEN 07/05/25 20:26: POC Glucose 369 H 07/05/25 20:45: Sodium 130 L, Potassium 3.6, Chloride 101, Carbon Dioxide 17.3 L, Anion Gap 11 ABG Data ABG results: ABG 07/05/25 17:55 Specimen Type SHIRA Sample Site Not entered VBG pH 7.32 VBG pO2 77 H VBG HCO3 16 L VBG Total CO2 17 L VBG O2 Sat (Calc) 94 H VBG Base Excess -10 L POC Mix VBG pCO2 Pt Tmp 31.6 L O2 Delivery Device Not entered Imaging Radiology Impression Chest X-Ray 07/05/25 18:27 IMPRESSION: Cardiomegaly with mild vascular congestion. No airspace consolidation or sizable pleural effusion. Reading Location: [id number] Assessment & Plan Assessment/Plan (1) Sepsis: (2) Complicated urinary tract infection: PLAN: Plan The patient is a 45 y/o F w/ PMHx: Morbid obesity, Diabetes mellitus type II with chronic neuropathy, LETITIA on BIPAP q HS, HTN, Anxiety and Depression, GERD, Chronic migraines who presents to the [facility] ED on 07/05/2025 with history of altered mental status, polyuria, polydipsia, elevated blood sugars as well as dyspnea complaint with family noting that they have been receiving texts from her that were nonsensical with additionally reported decreased urine output that has been significantly dark in color with subjectivefever and chills and general Pia's with nausea but no emesis and possibly intermittent diarrhea with mild suprapubic discomfort but no flank pain prompting eventual ED evaluation to be cautious. #1. Acute hyperglycemia with significant electrolyte disturbances with notable hyponatremia likely falsely decreased given significant hyperglycemia with suspected Acute HHS, DKA ruled out with normal anion gap as well as normal beta hydroxybutyrate level: Will admit to the ICU, will continue aggressive IV fluid hydration, will continue insulin drip initiated per ED, will request osmolality level as suspect HHS will continue to obtain serial BMPs given electrolyte disturbances, magnesium and phosphorus levels per ED normal range, continue to trend as needed with repletion as needed, hemoglobin A1c level requested, nutrition consulted. #2. Acute Sepsis secondary to Acute Complicated Urinary Tract Infection w/ concurrently as noted #1 as a result likely (source, hypotensive, tachypneic, acute kidney injury, lactic acidosis): UA upon ED evaluation remarkable, pendingUCx, continue aggressive IVFs per protocol with ED initiated, monitor I/Os, continue IV Rocephin w/ transition as able pending sensitivities and speciation.Bld cx x 2 obtained in the ED. of note patient does have a history of kidney stones therefore if clinically not improving low threshold to obtain imaging to assure no concerning findings that would require urology involvement concurrently. #3. Acute kidney injury on CKD stage II/1 per review of GFR trending: Secondaryto acute presentation as noted above #1, #2. Admission BUN/Cr 41/1.98, GFR 32, prior baseline creatinine noted to be primarily 0.7-0.8. Will hydrate, hold nephrotoxic medications and repeat chemistry in AM. If no improvement would planFeNa assessment and further evaluation #4. Acute on chronic anemia, normocytic, unclear etiology: Admission hemoglobin9.5, MCV 95.9, previous hemoglobin primarily 13 range however has dropped intermittently upon lab review into the 11 range, unclear exact etiology as no reported hematemesis or altered stool appearance or heavy menstruation, will continue to trend, iron panel, ferritin, guaiac requested to be cautious. #5. Acute thrombocytopenia, unclear etiology: Platelets 136, baseline usually normal range, likely reactive given acute presentation, will continue to closelytrend CBC. #6. Hypertension: Holding all hypertensive regimen given hypotensive presentation, add back once clinically appropriate blood pressure as well as kidney function. #7. Anxiety and depression: Will continue patient home fluoxetine however adjustments may be necessary if renal function worsens/does not improve. #8. Chronic migraines: Will temporally hold patient rimegepant regimen, will continue topiramate regimen, continue to closely monitor labs given alterations as noted above. #9. Morbid Obesity: Weight loss and lifestyle changes encouraged, nutrition consulted. #10. LETITIA: Will continue BiPAP nightly. #11. GERD: Will continue patient home PPI. #12. DVT prophylaxis: SCDs, defer chemoprophylaxis given acute on chronic anemia as noted. Charges/Coding Visit Charges Inpatient E&M: 52521 Init Hosp L3 07/05/252224 <Electronically signed by Shana Mendoza MD> Cosigner Signature (if applicable): CC: Dr. Shana Mendoza MD; Dr. Ivette Grimes MD~ Signed ADDENDUM by Dr. Shana Mendoza MD on 07/06/25 at 0139 Sepsis Attestation Sepsis Alert: Yes Sepsis Attestation: Agree w/Sepsis Date exam was performed: 07/05/25 Time exam was performed: 21:35 Possible Source of Sepsis: Genitourinary Sepsis Organ Dysfunction Criteria Present: SBP < 90 mmHg or MAP < 65 mmHg, Lactic Acid > 2 mmol/L and New/Unexplained change in mental status Fluid Resuscitation Fluid resuscitation indicated?: Yes Fluid Resuscitation ordered: 30 ml/kg fluid bolus ordered Sepsis Note Date exam was performed: 07/06/25 Time exam was performed: 01:39 Sepsis Attestation: Sepsis re-evaluation was performed Response to fluids: Fluid responsive hypotension 07/06/25 0139<Electronically signed by Shana Mendoza MD> Cosigner Signature (if applicable): cc: Dr. Shana Mendoza MD; Dr. Ivette Grimes MD ~* Signed [facility] Work Phone: 1(433) 370-517509-02-2025 Consult note Author Sabrina bianchi [facility] Note Date/Time July 06, 2025 1:10am [facility] Medical Records Department [address] [place] [address] Consultation - Bow Tacker 07/06/25 0055 MR#: [id number] Acct: [id number] Name: TORI GRAY Rep #:[id number] : 1980 45 From: Sabrina arthur MD PCP: Dr. Ivette Grimes MD Status:ADM I N Location: ICU [id number] 2-1 HPI Consult Data Date of Consult: 07/06/25 HPI Narrative HPI Narrative: 45 yrs old female with past medical history of Morbid obesity, Diabetes mellitus on Ozembic, peripheral neuropathy, LETITIA on CPAP q HS, HTN, Anxiety and Depression, GERD, Chronic migraines, s/p L shoulder surgery secondary L shoulderbursitis 06/23/25 presented to ED for change in mental status and generalized weakness Labs significant for Hgb 9.5, HCT 28, Na 128, Hco3 15, Cr 1.98, Glu 533, U/A positive for WBC, LE Patient is given IVF bolus, insulin drip, and antibiotics On my evaluation of patient in ICU, she is awake, alert, oriented not in acute distress P/E: Obese on CPAP HEENT: Atraumatic Respiratory: Decreased breath sounds on the bases CVS: S1, S2 are well heard Abd: Soft Extre:Trace edema [employer]: Awake, alert . oriented Assessment/Plan # Hyperglycemia not in DKA likely due to UTI, patient reported she is compliant to her medications S/p IVF bolus On insulin drip Betahydroxy negative Monitor blood sugar Q 1 hrs, BMP Q 4 hrs Replete electorlytes Check A1c # JOHN Likely due to dehydration in the light of hyperglycemia Monitor urine output and renal function Avoid Nephrotoxic agents # Hyponatremia Pseudo due to hyperglycemia # UTI Continue with antibiotics Follow up on cultures # Hx of peripheral neuropathy Continue with home meds # Hx of Anxiety/Depression Continue with home meds # s/p L shoulder surgery secondary L shoulder bursitis Sling in place Pain management # Anemia Likely of chronic illness Monitor H and H Critical care time 60 minutes Entire encounter done via Telemedicine [facility] Medical History Impingement of left shoulder Diabetes Fatty liver [...] 11/10/24 History tablet (Nurtec ODT) headache semaglutide 2 mg/dose (8 mg/3 mL) 2 mg subcut QWEEK Unknown History subcutaneous pen injector (Ozempic) Allergy/AdvReac Type Severity Reaction Status Date / Time Corticosteroids Allergy Hives Verified 07/05/25 17:33 (Glucocorticoids) (steroids) lidocaine AdvReac Intermediate Hives Verified 07/05/25 17:33 Family History Father Diabetes Myocardial infarction Pancreatic cancer Mother Alcohol abuse Drug abuse Grandfather Diabetes Grandmother Lung cancer Grandmother Heart disease Triple bypass surgery Surgical History History of urethral stent (~2018) Hx laparoscopic cholecystectomy (~2005) H/O: (~2005) Social History household members: none Smoking Status: Never smoker alcohol intake: never substance use type: does not use caffeine: Yes Type: coffee what type of physical activity do you participate in: walking frequency: daily seatbelt use: always do you feel safe at home: Yes Objective Data Objective Data Vital Signs: Vital Signs Last response 3 Temperature 37.4 C H 07/06/25 00:15 Temperature Source Oral 07/06/25 00:15 Pulse Rate 75 07/06/25 00:30 Respiratory Rate 23 H 07/06/25 00:30 Respiratory Effort Normal, Non-Labored 07/05/25 17:32 Respiratory Depth Normal 07/05/25 17:32 Respiratory Pattern Normal 07/05/25 17:32 Blood Pressure 121/58 H 07/06/25 00:30 Blood Pressure Mean 79 07/06/25 00:30 Blood Pressure Source Monitor 07/06/25 00:30 Pulse Ox 97 07/06/25 00:30 Oxygen Delivery Method Room Air 07/06/25 00:30 I&O: I&O Last 24 Hours 3 07/05/25 07/05/25 07/06/25 11:59 23:59 11:59 Intake Total 1074.75 / 1074.75 462.71 / 462.71 Balance 1074.75 / 1074.75 462.71 / 462.71 I&O: Total Stay 3 07/05/25 17:32 thru 07/06/25 00:54 Intake Total 1537.46 Balance 1537.46 Current Meds Ordered / Administered: Current meds ordered / Administered 3 Generic Name Dose Route Start Last Admin Trade Name Freq PRN Reason Stop Dose Admin Acetaminophen 650 mg 07/05/25 23:32 Acetaminophen 325 Mg Tablet PO Q4H PRN PRN Fever, pain 1-08/13 Al Hydroxide/Mg Hydroxide 30 ml 07/05/25 23:32 Mag Hydrox/Al Hydrox/Simeth 30 Ml Udc PO Q6H PRN PRN Gastric Burning Albuterol Sulfate 2.5 mg 07/05/25 23:32 Albuterol 2.5 Mg/3 Ml Vial.Neb. INHALATION Q2H PRN PRN Dyspnea, wheezing Fluoxetine HCl 20 mg 07/05/25 23:32 07/06/25 00:04 Fluoxetine 20 Mg Capsule PO 20 mg QHS GEORGE Administration Gabapentin 300 mg 07/05/25 23:32 07/06/25 00:04 Gabapentin 300 Mg Capsule PO 300 mg QHS GEORGE Administration Glucagon 1 mg 07/05/25 23:32 Glucagon 1 Mg/Ml Syringe IM X1 PRN Hypoglycemia Protocol Guaifenesin 10 ml 07/05/25 23:32 Guaifenesin 10 Ml Udc (200mg/10ml) PO Q4H PRN PRN COUGH Insulin Human Lispro 100 unit/ 100 mls @ 0 mls/hr 07/05/25 19:45 07/06/25 00:54 Sodium Chloride CONT INF 4.5 ml/hr .Q0M GEORGE 4.5 mls/hr Titration Protocol As Directed Ceftriaxone Sodium 2 gm/ 50 mls @ 100 mls/hr 07/06/25 22:00 Sodium Chloride IV 2200 GEORGE Dextrose 250 mls @ 0 mls/hr 07/05/25 23:32 Dextrose 10%-Water IV .Q0M PRN HYPOGLYCEMIA Protocol As Directed Sodium Chloride 250 mls @ 15 mls/hr 07/05/25 23:36 IV .[id number] PRN Saline Flush Sodium Chloride 250 mls @ 15 mls/hr 07/05/25 23:36 IV .[id number] PRN Additional IVPB Infusion Dextrose/Sodium Chloride 1,000 mls @ 150 mls/hr 07/06/25 00:20 07/06/25 00:54 IV 150 mls/hr .Q6H40M GEORGE Administration Loperamide HCl 2 mg 07/05/25 23:32 Loperamide 2 Mg Capsule PO Q2H PRN PRN DIARRHEA Loratadine 10 mg 07/06/25 10:00 Loratadine 10 Mg Tablet PO DAILY GEORGE Melatonin 3 mg 07/05/25 23:32 Melatonin 3 Mg Tablet PO QHS PRN PRN INSOMNIA Ondansetron HCl 4 mg 07/05/25 23:32 Ondansetron 4 Mg/2 Ml Vial IV Q8H PRN PRN NAUSEA/VOMITING Pantoprazole Sodium 20 mg 07/05/25 23:32 07/06/25 00:04 Pantoprazole Sodium 20 Mg Tablet PO 20 mg BID GEORGE Administration Sodium Chloride 10 - 40 ml 07/05/25 23:36 0.9% Saline Lock 10 Ml Syringe IV UD PRN SALINE FLUSH Topiramate 100 mg 07/05/25 23:32 07/06/25 00:04 Topiramate 100 Mg Tablet PO 100 mg BID GEORGE Administration Lab / Micro Data 07/05/25 17:48 07/05/25 20:45 Labs: Laboratory Results - last 24 hr 07/05/25 17:40: POC Glucose 459 H* 07/05/25 17:48: WBC 6.9, RBC 2.94 L, Hgb 9.5 L, Hct 28.2 L, MCV 95.9, MCH 32.3 H, MCHC 33.7, RDW Std Deviation 48.8 H, RDW Coeff of Itzel 13.8, Plt Count 136 L, MPV 10.4, Immature Gran % (Auto) 0.900, Neut % (Auto) 77.6 H, Lymph % (Auto) 14.4 L, [place] % (Auto) 5.8, Eos % (Auto) 0.9, Baso % (Auto) 0.4, Absolute Neuts (auto) 5.3, Absolute Lymphs (auto) 0.99, Nucleated RBC % 0, Sodium 128 L, Potassium 3.8, Chloride 98, Carbon Dioxide 15.0 L, Anion Gap 15, BUN 41 H, Creatinine 1.98 H, Estim Creat Clear Calc 51.75, Est GFR (MDRD) Non-Af 32 L, BUN/Creatinine Ratio 20.7 H, Glucose 533 H*, Lactic Acid 2.2 H*, Calcium 8.3, Phosphorus 3.0, Magnesium 2.2, Total Bilirubin 0.57, AST 19, ALT 26, Alkaline Phosphatase 183 H, Total Protein 7.1, Albumin 3.3 L, Globulin 3.7, Albumin/Globulin Ratio 0.9, b-Hydroxybutyric mmol/L 0.1 07/05/25 18:02: Urine Color Straw, Urine Clarity Sl. Cloudy, Urine pH 6.0, Ur Specific [place] 1.010, Urine Protein 30 H, Urine Glucose (UA) 1000 H, Urine Ketones Negative, Urine Occult Blood 150 H, Urine Nitrite Negative, Urine Bilirubin Negative, Urine Urobilinogen Normal, Ur Leukocyte Esterase 100 H, Urine RBC 5-10 SEEN, Urine WBC 10-25 SEEN, Ur Squamous Epith Cells 5-10 SEEN, Urine Bacteria 3+, Urine Mucus 0 SEEN 07/05/25 20:26: POC Glucose 369 H 07/05/25 20:45: Sodium 130 L 07/05/25 20:45: Sodium 130 L, Potassium 3.6 07/05/25 20:45: Potassium 3.6, Chloride 101 07/05/25 20:45: Chloride 101, Carbon Dioxide 17.3 L 07/05/25 20:45: Carbon Dioxide 15.9 L, Anion Gap 11 07/05/25 20:45: Anion Gap 13, Serum Osmolality 307 H, Iron 12 L, TIBC 166 L, Iron Saturation 7.2 L, Unsaturated IBC 154 L, Ferritin 601 H 07/05/25 21:35: POC Glucose 321 H 07/05/25 22:38: POC Glucose 265 H 07/05/25 22:40: Lactic Acid 1.5 07/05/25 23:54: POC Glucose 211 H ABG Data ABG results: ABG 07/05/25 17:55 Specimen Type SHIRA Sample Site Not entered VBG pH 7.32 VBG pO2 77 H VBG HCO3 16 L VBG Total CO2 17 L VBG O2 Sat (Calc) 94 H VBG Base Excess -10 L POC Mix VBG pCO2 Pt Tmp 31.6 L O2 Delivery Device Not entered Imaging Radiology Impression Chest X-Ray 07/05/25 18:27 IMPRESSION: Cardiomegaly with mild vascular congestion. No airspace consolidation or sizable pleural effusion. Reading Location: [id number] Abdomen/Pelvis CT 07/05/25 22:18 IMPRESSION: 1. A 10 mm stone at the left UPJ resulting in mild left hydronephrosis. 2. Mildly prominent reactive left para-aortic lymph nodes. Reading [id number] Assessment and Plan . Assessment and plan: Critical Care Time: The entirety of this encounter was done via Telemedicine 07/06/25 0110 <Electronically signed by Sabrina Abdul MD> Cosigner Signature (if applicable): CC: Dr. Ivette Grimes MD~ Signed [facility] Work Phone: 1(877) 890-639909-02-2025 History and physical note [facility] Medical Records Department [address] [place] [address] H&P Exam - Hospitalist 07/05/252134 MR#: [id number] Acct: [id number] Name: TORI GRAY Rep #:[id number] : 1980 45 From: Shana Mendoza MD PCP: Dr. Ivette Grimes MD Status:ADM I N Location: ICU CVICU20 2-1 HPI - General General Date of Admission: 07/05/25 Date of Service: 07/05/25 Chief Complaint: Altered mentation, elevated BS, dark urine, suprapubic discomfort, polydipsia. HPI Narrative The patient is a 45 y/o F w/ PMHx: Morbid obesity, Diabetes mellitus type II with chronic neuropathy, LETITIA on BIPAP q HS, HTN, Anxiety and Depression, GERD, Chronic migraines, s/p L shoulder surgery secondary L shoulder impingement syndrome with bursitis 06/23/[address] Quiroga with subacromial decompression and debridement with arthroscopy who presents to the [facility] ED on 07/05/2025 with history of altered mental status, polyuria, polydipsia, elevated blood sugars as well as dyspnea complaint with family noting that they have been receiving texts from her that were nonsensical with additionally reported decreased urine output that has been significantly dark in color with subjective fever and chills and general Pia's with nausea but no emesis and possibly intermittentdiarrhea with mild suprapubic discomfort but no flank painprompting eventual ED evaluation to be cautious. Workup in the ED included T98.6, heart rate 78, BP 106/46, respiratory rate 18, 96% on room air with BP transiently decreasing while in the ED down to 83/61 with a MAP of 67 however most recent repeat vitals T100 oral, heart rate 72, BP 102/47, MAP 65, respiratory rate 22, 96% on room air, CBC with WBC 6.9, hemoglobin 9.5, MCV 95.9, platelet 136 without significant shift, VBG with PO277, bicarb 16, total CO2 17, CMP with sodium 130, potassium 3.6, chloride 101, carbon dioxide 17.3, aniongap 11, BUN/creatinine 41/1.98, GFR 32, glucose 533, lactic acid 2.2, hepatic profile not marked appearing aside from alk phos 183, beta hydroxybutyrate level 0.1, urinalysis with cloudy appearing urine, specific gravity 1.010, protein 30, glucose thousand, negative ketone, occult blood 150, negative nitrite, leukocyte Estrace 100 with urine WBCs 10-25 although squamous epithelial cells of note are 5-10 however there is 3+ urine bacteria, chest x- ray with cardiomegaly with questionable mild vascular congestion with no other acute findings, blood culture x 2 pending per ED, urine culture pending per ED. In the ED patient administered aggressive IV fluid hydration, Tylenol 650 mg p.o. x 1, Rocephin 2 g IV x 1, transition to maintenance IV fluids at 150 mL/h, initiated on insulin drip. [facility] Medical History Impingement of left shoulder Diabetes Fatty liver [...] 11/10/24 History tablet (Nurtec ODT) headache semaglutide 2 mg/dose (8 mg/3 mL) 2 mg subcut QWEEK Unknown History subcutaneous pen injector (Ozempic) Allergy/AdvReac Type Severity Reaction Status Date / Time Corticosteroids Allergy Hives Verified 07/05/25 17:33 (Glucocorticoids) (steroids) lidocaine AdvReac Intermediate Hives Verified 07/05/25 17:33 Family History Father Diabetes Myocardial infarction Pancreatic cancer Mother Alcohol abuse Drug abuse Grandfather Diabetes Grandmother Lung cancer Grandmother Heart disease Triple bypass surgery Surgical History History of urethral stent (~2018) Hx laparoscopic cholecystectomy (~2005) H/O: (~2005) Social History household members: none Smoking Status: Never smoker alcohol intake: never substance use type: does not use caffeine: Yes Type: coffee what type of physical activity do you participate in: walking frequency: daily seatbelt use: always do you feel safe at home: Yes ROS ROS Narrative Admission Review of Systems: CONSTITUTIONAL: No weight loss, + fever, chills, weakness or fatigue. HEENT: Eyes: No visual loss, blurred vision, double vision or yellow sclerae. Ears, Nose, Throat: No hearing loss, sneezing, congestion, runny nose or sore throat. SKIN: No rash or itching, lesions, wounds. CARDIOVASCULAR: No chest pain, chest pressure or chest discomfort, palpitations,edema, orthopnea, syncopal events. RESPIRATORY: + Dyspnea. No cough or sputum, wheezing, hemoptysis. GASTROINTESTINAL: + anorexia, nausea, loose stools. No vomiting, abdominal pain, melena, BRBPR. GENITOURINARY: + Suprapubic discomfort, decreased urine output, dark appearing urine. No urgency orretention. NEUROLOGICAL: + Altered mentation, chronic bilateral lower extremity neuropathy. No headache, dizziness, syncope, paralysis, ataxia, focal weakness, change in bowel or bladder control, seizure. MUSCULOSKELETAL: + muscle, back pain, joint pain or stiffness. HEMATOLOGIC: + Acute on possibly chronic anemia of unclear etiology, no specificeasy history of bleeding or bruising. LYMPHATICS: No enlarged nodes. No history of splenectomy. PSYCHIATRIC: + History of anxiety and depression. ENDOCRINOLOGIC: No reports of sweating, cold or heat intolerance. + polydipsia. ALLERGIES:+ History of hives, allegic rhinitis. Vital Signs Vital Signs Vital Signs: 07/05/25 17:32 07/05/25 17:34 07/05/25 17:36 Temperature 98.6 F 98.6 F Temperature Source Oral Oral Pulse Rate 78 76 Respiratory Rate 18 21 H Respiratory Effort Normal Non-Labored Respiratory Depth Normal Respiratory Pattern Normal Blood Pressure 106/46 L 127/65 H Blood Pressure Mean 66 85 Pulse Ox 96 98 Oxygen Delivery Method Room Air Room Air Room Air 07/05/25 18:08 07/05/25 18:15 07/05/25 18:15 Temperature Temperature Source Pulse Rate 76 72 Respiratory Rate 20 H 24 H Respiratory Effort Respiratory Depth Respiratory Pattern Blood Pressure 118/61 118/61 Blood Pressure Mean 77 77 Pulse Ox 98 98 Oxygen Delivery Method 07/05/25 18:30 07/05/25 18:36 07/05/25 18:38 Temperature 99.7 F H Temperature Source Oral Pulse Rate 74 74 Respiratory Rate 24 H 24 H Respiratory Effort Respiratory Depth Respiratory Pattern Blood Pressure 83/61 L 114/55 L 114/55 L Blood Pressure Mean 67 74 71 Pulse Ox 97 96 98 Oxygen Delivery Method Room Air 07/05/25 18:45 07/05/25 19:00 07/05/25 19:00 Temperature 99.9 F H Temperature Source Oral Pulse Rate 72 76 71 Respiratory Rate 19 H 21 H 26 H Respiratory Effort Respiratory Depth Respiratory Pattern Blood Pressure 116/54 L 108/53 L 108/53 L Blood Pressure Mean 70 71 68 Pulse Ox 100 97 97 Oxygen Delivery Method Room Air 07/05/25 19:22 07/05/25 19:50 07/05/25 21:00 Temperature 99.9 F H 100 F H Temperature Source Oral Pulse Rate 71 73 72 Respiratory Rate 20 H 24 H 22 H Respiratory Effort Respiratory Depth Respiratory Pattern Blood Pressure 101/53 L 97/56 L 102/47 L Blood Pressure Mean 69 69 65 Pulse Ox 98 100 96 Oxygen Delivery Method Room Air Room Air Weight Weight: 289 lb 7.471 oz Body Mass Index (BMI) 45.3 Physical Exam Narrative Physical Examination: General: Awake, alert, oriented x 3 and cooperative, seated upright in ED bed inno apparent distress, fatigued and ill-appearing. Skin: Normal color, normal turgor, no icterus, no cyanosis except occasional stage ecchymoses, abrasion, status post recent left shoulder surgery with Steri- Strips still intact over trocar incisions,well-appearing, no drainage, no redness. HEENT: AT/NC, EOMI, PERRLA, dry MM, no carotid bruits, difficult to discern JVD given thickened neck. Lungs: CTA bilaterally, moderate effort, mild decrease BL bases, no rales, ronchi or wheezing. Heart: Regular rate and rhythm; no gallop, rub audible. Abdomen: Soft, morbidly obese, NTTP no suprapubic tenderness elicited, distant BS, difficult to discern distention and HSM given habitus. Extremities: No cyanosis, no clubbing, no significant distal edema noted. Neurological: Patient awake, alert, oriented as noted, cognitive function intact; pupils equally reactive to light and accommodation, cranial nerves grossly normal, moving all 4 extremities, no focaldeficits, strength moderatelyto severely globally decreased secondary to acute presentation. Psychiatric: Affect appears flat, fatigued, ill-appearing, no acute evidence of depressive or anxiety feelings. Results Lab / Micro Data 07/05/25 17:48 07/05/25 20:45 Labs: Laboratory Results - last 24 hr 07/05/25 17:40: POC Glucose 459 H* 07/05/25 17:48: WBC 6.9, RBC 2.94 L, Hgb 9.5 L, Hct 28.2 L, MCV 95.9, MCH 32.3 H, MCHC 33.7, RDW Std Deviation 48.8 H, RDW Coeff of Itzel 13.8, Plt Count 136 L, MPV 10.4, Immature Gran % (Auto) 0.900, Neut % (Auto) 77.6 H, Lymph % (Auto) 14.4 L, [place] % (Auto) 5.8, Eos % (Auto) 0.9, Baso % (Auto) 0.4,Absolute Neuts (auto) 5.3, Absolute Lymphs (auto) 0.99, Nucleated RBC % 0, Sodium 128 L, Potassium 3.8, Chloride 98, Carbon Dioxide 15.0 L, Anion Gap 15, BUN 41 H, Creatinine 1.98 H, Estim Creat Clear Calc 51.75, Est GFR (MDRD) Non-Af 32 L, BUN/Creatinine Ratio 20.7 H, Glucose 533 H*, Lactic Acid 2.2 H*, Calcium 8.3, Phosphorus 3.0, Magnesium 2.2, Total Bilirubin 0.57, AST 19, ALT 26, Alkaline Phosphatase 183 H, Total Protein 7.1, Albumin 3.3 L, Globulin 3.7, Albumin/Globulin Ratio 0.9, b-Hydroxybutyric mmol/L 0.1 07/05/25 18:02: Urine Color Straw, Urine Clarity Sl. Cloudy, Urine pH 6.0, Ur Specific Banks 1.010, Urine Protein 30 H, Urine Glucose (UA) 1000 H, Urine Ketones Negative, Urine Occult Blood 150 H, Urine Nitrite Negative, Urine Bilirubin Negative, Urine Urobilinogen Normal, Ur Leukocyte Esterase 100 H, Urine RBC 5-10 SEEN, Urine WBC 10-25 SEEN, Ur Squamous Epith Cells 5-10 SEEN, Urine Bacteria 3+, Urine Mucus 0 SEEN 07/05/25 20:26: POC Glucose 369 H 07/05/25 20:45: Sodium 130 L, Potassium 3.6, Chloride 101, Carbon Dioxide 17.3 L, Anion Gap 11 ABG Data ABG results: ABG 07/05/25 17:55 Specimen Type SHIRA Sample Site Not entered VBG pH 7.32 VBG pO2 77 H VBG HCO3 16 L VBG Total CO2 17 L VBG O2 Sat (Calc) 94 H VBG Base Excess -10 L POC Mix VBG pCO2 Pt Tmp 31.6 L O2 Delivery Device Not entered Imaging Radiology Impression Chest X-Ray 07/05/25 18:27 IMPRESSION: Cardiomegaly with mild vascular congestion. No airspace consolidation or sizable pleural effusion. Reading Location: [id number] Assessment & Plan Assessment/Plan (1) Sepsis: (2) Complicated urinary tract infection: PLAN: Plan The patient is a 45 y/o F w/ PMHx: Morbid obesity, Diabetes mellitus type II with chronic neuropathy, LETITIA on BIPAP q HS, HTN, Anxiety and Depression, GERD, Chronic migraines who presents to the [facility] ED on 07/05/2025 with history of altered mental status, polyuria, polydipsia, elevated blood sugars as well as dyspnea complaint with family noting that they have been receiving texts from her that were nonsensical with additionally reported decreased urine output that has been significantly dark in color with subjectivefever and chills and general Pia's with nausea but no emesis and possibly intermittent diarrhea with mild suprapubic discomfort but no flank pain prompting eventual ED evaluation to be cautious. #1. Acute hyperglycemia with significant electrolyte disturbances with notable hyponatremia likely falsely decreased given significant hyperglycemia with suspected Acute HHS, DKA ruled out with normal anion gap as well as normal beta hydroxybutyrate level: Will admit to the ICU, will continue aggressive IV fluid hydration, will continue insulin drip initiated per ED, will request osmolality levelas suspect HHS will continue to obtain serial BMPs given electrolyte disturbances, magnesium and phosphorus levels per ED normal range, continue to trend as needed with repletion as needed, hemoglobin A1c level requested, nutrition consulted. #2. Acute Sepsis secondary to Acute Complicated Urinary Tract Infection w/ concurrently as noted #1as a result likely (source, hypotensive, tachypneic, acute kidney injury, lactic acidosis): UA uponED evaluation remarkable, pendingUCx, continue aggressive IVFs per protocol with ED initiated, monitor I/Os, continue IV Rocephin w/ transition as able pending sensitivities and speciation.Bld cx x 2obtained in the ED. of note patient does have a history of kidney stones therefore if clinically not improving low threshold to obtain imaging to assure no concerning findings that would require urology involvement concurrently. #3. Acute kidney injury on CKD stage II/1 per review of GFR trending: Secondaryto acute presentation as noted above #1, #2. Admission BUN/Cr 41/1.98, GFR 32, prior baseline creatinine noted to be primarily 0.7-0.8. Will hydrate, hold nephrotoxic medications and repeat chemistry in AM. If no improvement would planFeNa assessment and further evaluation #4. Acute on chronic anemia, normocytic, unclear etiology: Admission hemoglobin9.5, MCV 95.9, previous hemoglobin primarily 13 range however has dropped intermittently upon lab review into the 11 range, unclear exact etiology as no reported hematemesis or altered stool appearance or heavy menstruation, will continue to trend, iron panel, ferritin, guaiac requested to be cautious. #5. Acute thrombocytopenia, unclear etiology: Platelets 136, baseline usually normal range, likely reactive given acute presentation, will continue to closelytrend CBC. #6. Hypertension: Holding all hypertensive regimen given hypotensive presentation, add back once clinically appropriate blood pressure as well as kidney function. #7. Anxiety and depression: Will continue patient home fluoxetine however adjustments may be necessary if renal function worsens/does not improve. #8. Chronic migraines: Will temporally hold patient rimegepant regimen, will continue topiramate regimen, continue to closely monitor labs given alterations as noted above. #9. Morbid Obesity: Weight loss and lifestyle changes encouraged, nutrition consulted. #10. LETITIA: Will continue BiPAP nightly. #11. GERD: Will continue patient home PPI. #12. DVT prophylaxis: SCDs, defer chemoprophylaxis given acute on chronic anemia as noted. Charges/Coding Visit Charges Inpatient E&M: 16723 Init Hosp 07/05/25 2222 Cosigner Signature (if applicable): CC: Dr. Shana Mendoza MD; Dr. Ivette Grimes MD~ Signed ADDENDUM by Dr. Shana Mendoza MD on 07/06/25 at 0139 Sepsis Attestation Sepsis Alert: Yes Sepsis Attestation: Agree w/Sepsis Date exam was performed: 07/05/25 Time exam was performed: 21:35 Possible Source of Sepsis: Genitourinary Sepsis Organ Dysfunction Criteria Present: SBP < 90 mmHg or MAP < 65 mmHg, Lactic Acid > 2mmol/L and New/Unexplained change in mental status Fluid Resuscitation Fluid resuscitation indicated?: Yes Fluid Resuscitation ordered: 30 ml/kg fluid bolus ordered Sepsis Note Date exam was performed: 07/06/25 Time exam was performed: 01:39 Sepsis Attestation: Sepsis re-evaluation was performed Response to fluids: Fluid responsive hypotension 07/06/25 0139 Cosigner Signature (if applicable): cc: Dr. Shana Mendoza MD; Dr. Ivette Grimes MD ~* Signed [facility]09-02-2025 Consult note [facility] Medical Records Department [address] [place] [address] Consultation - Bow Tacker 07/06/25 0055 MR#: [id number] Acct: [id number] Name: TORI GRAY Rep #:[id number] : 1980 45 From: Sabrina arthur MD PCP: Dr. Ivette Grimes MD Status:ADM I N Location: ICU [id number] 2-1 HPI Consult Data Date of Consult: 07/06/25 HPI Narrative HPI Narrative: 45 yrs old female with past medical history of Morbid obesity, Diabetes mellitus on [place]emb[place], peripheral neuropathy, LETITIA on CPAP q HS, HTN, Anxiety and Depression, GERD, Chronic migraines, s/p L shoulder surgery secondary L shoulderbursitis 06/23/25 presented to ED for change in mental status and gene ralized weakness Labs significant for Hgb 9.5, HCT 28, Na 128, Hco3 15, Cr 1.98, Glu 533, U/A positive for WBC, LE Patient is given IVF bolus, insulin drip, and antibiotics On my evaluation of patient in ICU, she is awake, alert, oriented not in acute distress P/E: Obese on CPAP HEENT: Atraumatic Respiratory: Decreased breath sounds on the bases CVS: S1, S2 are well heard Abd: Soft Extre:Trace edema [employer]: Awake, alert . oriented Assessment/Plan # Hyperglycemia not in DKA likely due to UTI, patient reported she is compliant to her medications S/p IVF bolus On insulin drip Betahydroxy negative Monitor blood sugar Q 1 hrs, BMP Q 4 hrs Replete electorlytes Check A1c # JOHN Likely due to dehydration in the light of hyperglycemia Monitor urine output and renal function Avoid Nephrotoxic agents # Hyponatremia Pseudo due to hyperglycemia # UTI Continue with antibiotics Follow up on cultures # Hx of peripheral neuropathy Continue with home meds # Hx of Anxiety/Depression Continue with home meds # s/p L shoulder surgery secondary L shoulder bursitis Sling in place Pain management # Anemia Likely of chronic illness Monitor H and H Critical care time 60 minutes Entire encounter done via Telemedicine [facility] Medical History Impingement of left shoulder Diabetes Fatty liver [...] 11/10/24 History tablet (Nurtec ODT) headache semaglutide 2 mg/dose (8 mg/3 mL) 2 mg subcut QWEEK Unknown History subcutaneous pen injector (Ozempic) Allergy/AdvReac Type Severity Reaction Status Date / Time Corticosteroids Allergy Hives Verified 07/05/25 17:33 (Glucocorticoids) (steroids) lidocaine AdvReac Intermediate Hives Verified 07/05/25 17:33 Family History Father Diabetes Myocardial infarction Pancreatic cancer Mother Alcohol abuse Drug abuse Grandfather Diabetes Grandmother Lung cancer Grandmother Heart disease Triple bypass surgery Surgical History History of urethral stent (~2018) Hx laparoscopic cholecystectomy (~2005) H/O: (~2005) Social History household members: none Smoking Status: Never smoker alcohol intake: never substance use type: does not use caffeine: Yes Type: coffee what type of physical activity do you participate in: walking frequency: daily seatbelt use: always do you feel safe at home: Yes Objective Data Objective Data Vital Signs: Vital Signs Last response 3 Temperature 37.4 C H 07/06/25 00:15 Temperature Source Oral 07/06/25 00:15 Pulse Rate 75 07/06/25 00:30 Respiratory Rate 23 H 07/06/25 00:30 Respiratory Effort Normal, Non-Labored 07/05/25 17:32 Respiratory Depth Normal 07/05/25 17:32 Respiratory Pattern Normal 07/05/25 17:32 Blood Pressure 121/58 H 07/06/25 00:30 Blood Pressure Mean 79 07/06/25 00:30 Blood Pressure Source Monitor 07/06/25 00:30 Pulse Ox 97 07/06/25 00:30 Oxygen Delivery Method Room Air 07/06/25 00:30 I&O: I&O Last 24 Hours 3 07/05/25 07/05/25 07/06/25 11:59 23:59 11:59 Intake Total 1074.75 / 1074.75 462.71 / 462.71 Balance 1074.75 / 1074.75 462.71 / 462.71 I&O: Total Stay 3 07/05/25 17:32 thru 07/06/25 00:54 Intake Total 1537.46 Balance 1537.46 Current Meds Ordered / Administered: Current meds ordered / Administered 3 Generic Name Dose Route Start Last Admin Trade Name Freq PRN Reason Stop Dose Admin Acetaminophen 650 mg 07/05/25 23:32 Acetaminophen 325 Mg Tablet PO Q4H PRN PRN Fever, pain 1-08/13 Al Hydroxide/Mg Hydroxide 30 ml 07/05/25 23:32 Mag Hydrox/Al Hydrox/Simeth 30 Ml Udc PO Q6H PRN PRN Gastric Burning Albuterol Sulfate 2.5 mg 07/05/25 23:32 Albuterol 2.5 Mg/3 Ml Vial.Neb. INHALATION Q2H PRN PRN Dyspnea, wheezing Fluoxetine HCl 20 mg 07/05/25 23:32 07/06/25 00:04 Fluoxetine 20 Mg Capsule PO 20 mg QHS GEORGE Administration Gabapentin 300 mg 07/05/25 23:32 07/06/25 00:04 Gabapentin 300 Mg Capsule PO 300 mg QHS GEORGE Administration Glucagon 1 mg 07/05/25 23:32 Glucagon 1 Mg/Ml Syringe IM X1 PRN Hypoglycemia Protocol Guaifenesin 10 ml 07/05/25 23:32 Guaifenesin 10 Ml Udc (200mg/10ml) PO Q4H PRN PRN COUGH Insulin Human Lispro 100 unit/ 100 mls @ 0 mls/hr 07/05/25 19:45 07/06/25 00:54 Sodium Chloride CONT INF 4.5 ml/hr .Q0M GEORGE 4.5 mls/hr Titration Protocol As Directed Ceftriaxone Sodium 2 gm/ 50 mls @ 100 mls/hr 07/06/25 22:00 Sodium Chloride IV 2200 GEORGE Dextrose 250 mls @ 0 mls/hr 07/05/25 23:32 Dextrose 10%-Water IV .Q0M PRN HYPOGLYCEMIA Protocol As Directed Sodium Chloride 250 mls @ 15 mls/hr 07/05/25 23:36 IV .[id number] PRN Saline Flush Sodium Chloride 250 mls @ 15 mls/hr 07/05/25 23:36 IV .[id number] PRN Additional IVPB Infusion Dextrose/Sodium Chloride 1,000 mls @ 150 mls/hr 07/06/25 00:20 07/06/25 00:54 IV 150 mls/hr .Q6H40M GEORGE Administration Loperamide HCl 2 mg 07/05/25 23:32 Loperamide 2 Mg Capsule PO Q2H PRN PRN DIARRHEA Loratadine 10 mg 07/06/25 10:00 Loratadine 10 Mg Tablet PO DAILY GEORGE Melatonin 3 mg 07/05/25 23:32 Melatonin 3 Mg Tablet PO QHS PRN PRN INSOMNIA Ondansetron HCl 4 mg 07/05/25 23:32 Ondansetron 4 Mg/2 Ml Vial IV Q8H PRN PRN NAUSEA/VOMITING Pantoprazole Sodium 20 mg 07/05/25 23:32 07/06/25 00:04 Pantoprazole Sodium 20 Mg Tablet PO 20 mg BID GEORGE Administration Sodium Chloride 10 - 40 ml 07/05/25 23:36 0.9% Saline Lock 10 Ml Syringe IV UD PRN SALINE FLUSH Topiramate 100 mg 07/05/25 23:32 07/06/25 00:04 Topiramate 100 Mg Tablet PO 100 mg BID GEORGE Administration Lab / Micro Data 07/05/25 17:48 07/05/25 20:45 Labs: Laboratory Results - last 24 hr 07/05/25 17:40: POC Glucose 459 H* 07/05/25 17:48: WBC 6.9, RBC 2.94 L, Hgb 9.5 L, Hct 28.2 L, MCV 95.9, MCH 32.3 H, MCHC 33.7, RDW Std Deviation 48.8 H, RDW Coeff of Itzel 13.8, Plt Count 136 L, MPV 10.4, Immature Gran % (Auto) 0.900, Neut % (Auto) 77.6 H, Lymph % (Auto) 14.4 L, [place] % (Auto) 5.8, Eos % (Auto) 0.9, Baso % (Auto) 0.4,Absolute Neuts (auto) 5.3, Absolute Lymphs (auto) 0.99, Nucleated RBC % 0, Sodium 128 L, Potassium 3.8, Chloride 98, Carbon Dioxide 15.0 L, Anion Gap 15, BUN 41 H, Creatinine 1.98 H, Estim Creat Clear Calc 51.75, Est GFR (MDRD) Non-Af 32 L, BUN/Creatinine Ratio 20.7 H, Glucose 533 H*, Lactic Acid 2.2 H*, Calcium 8.3, Phosphorus 3.0, Magnesium 2.2, Total Bilirubin 0.57, AST 19, ALT 26, Alkaline Phosphatase 183 H, Total Protein 7.1, Albumin 3.3 L, Globulin 3.7, Albumin/Globulin Ratio 0.9, b-Hydroxybutyric mmol/L 0.1 07/05/25 18:02: Urine Color Straw, Urine Clarity Sl. Cloudy, Urine pH 6.0, Ur Specific [place] 1.010, Urine Protein 30 H, Urine Glucose (UA) 1000 H, Urine Ketones Negative, Urine Occult Blood 150 H, Urine Nitrite Negative, Urine Bilirubin Negative, Urine Urobilinogen Normal, Ur Leukocyte Esterase 100 H, Urine RBC 5-10 SEEN, Urine WBC 10-25 SEEN, Ur Squamous Epith Cells 5-10 SEEN, Urine Bacteria 3+, Urine Mucus 0 SEEN 07/05/25 20:26: POC Glucose 369 H 07/05/25 20:45: Sodium 130 L 07/05/25 20:45: Sodium 130 L, Potassium 3.6 07/05/25 20:45: Potassium 3.6, Chloride 101 07/05/25 20:45: Chloride 101, Carbon Dioxide 17.3 L 07/05/25 20:45: Carbon Dioxide 15.9 L, Anion Gap 11 07/05/25 20:45: Anion Gap 13, Serum Osmolality 307 H, Iron 12 L, TIBC 166 L, Iron Saturation 7.2 L,Unsaturated IBC 154 L, Ferritin 601 H 07/05/25 21:35: POC Glucose 321 H 07/05/25 22:38: POC Glucose 265 H 07/05/25 22:40: Lactic Acid 1.5 07/05/25 23:54: POC Glucose 211 H ABG Data ABG results: ABG 07/05/25 17:55 Specimen Type SHIRA Sample Site Not entered VBG pH 7.32 VBG pO2 77 H VBG HCO3 16 L VBG Total CO2 17 L VBG O2 Sat (Calc) 94 H VBG Base Excess -10 L POC Mix VBG pCO2 Pt Tmp 31.6 L O2 Delivery Device Not entered Imaging Radiology Impression Chest X-Ray 07/05/25 18:27 IMPRESSION: Cardiomegaly with mild vascular congestion. No airspace consolidation or sizable pleural effusion. Reading Location: [id number] Abdomen/Pelvis CT 07/05/25 22:18 IMPRESSION: 1. A 10 mm stone at the left UPJ resulting in mild left hydronephrosis. 2. Mildly prominent reactive left para-aortic lymph nodes. Reading [id number] Assessment and Plan . Assessment and plan: Critical Care Time: The entirety of this encounter was done via Telemedicine 07/06/25 0110 Cosigner Signature (if applicable): CC: Dr. Ivette Grimes MD~ Signed [facility]09-02-2025 Discharge summary Author Abhi Pina [facility] Note Date/Time July 05, 2025 10:24pm [facility] Medical Records Department [address] [place] [address] Emergency Department Summary 07/05/25 MR#: [id number] Acct: [id number] Name: TORI GRAY Rep #:[id number] : 1980 45 From: Abhi Pina MD PCP: Dr. Ivette Grimes MD Status:REG E R Location: ED HPI History of Present Illness Chief Complaint: Shortness of Breath Detail of Chief Complaint: Altered mental status, thirst, elevated blood sugar, shortness of breath, l Informant: patient and family (Daughter states she has received text messages that do not make sense.) Onset/Context/Timing Onset: Days (Saturday) Context: Sudden Onset Timing: Continuous and Waxes and wanes Quality: Altered mental status, decreased urine output, dark urine, thirst Location: Multiple Current Severity: Moderate Maximum Severity: Severe Worsened by: Unknown certain Relieved by: Nothing Associated Symptoms Associated Symptoms: Chills with subjective fever Narrative Narrative: Patient is a 45-year-old woman. 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 She presents because she not been feeling well. Daughter states she is been sending unusual and weird text that do not make sense. Subjective fever with chills. Thirst dry mouth. Complains of shortness of breath. Denies dyspnea on exertion, orthopnea or PND. Denies chest discomfort of any type. Does endorse nausea without vomiting. Said some intermittent diarrhea. She has not been on antibiotic in the past month. She reports decreased urine output and dark-colored urine. She has some mild discomfort in the suprapubic area describes itas pressure. She denies back or flank pain. She denies skin lesions. She states her sugars normally run 11/24/1929. They have been greater than 400 the past 12 hours. Prior similar symptoms: No Recent Illness/[facility]ospital[facility]: [facility] Medical History Impingement of left shoulder Diabetes Fatty liver [...] 11/10/24 History tablet (Nurtec ODT) headache semaglutide 2 mg/dose (8 mg/3 mL) 2 mg subcut QWEEK Unknown History subcutaneous pen injector (Ozempic) Allergy/AdvReac Type Severity Reaction Status Date / Time Corticosteroids Allergy Hives Verified 07/05/25 17:33 (Glucocorticoids) (steroids) lidocaine AdvReac Intermediate Hives Verified 07/05/25 17:33 Family History Father Diabetes Myocardial infarction Pancreatic cancer Mother Alcohol abuse Drug abuse Grandfather Diabetes Grandmother Lung cancer Grandmother Heart disease Triple bypass surgery Surgical History History of urethral stent (~2018) Hx laparoscopic cholecystectomy (~2005) H/O: (~2005) Social History household members: none Smoking Status: Never smoker alcohol intake: never substance use type: does not use caffeine: Yes Type: coffee what type of physical activity do you participate in: walking frequency: daily seatbelt use: always do you feel safe at home: Yes ROS ROS ED Constitutional Constitutional ED: Reports chills, fever(s) and subjective; Denies sweats Eyes Eyes: Denies blurry vision, change in vision or diplopia ENT ENT ED: Denies ear pain, rhinorrhea or sore throat Cardiovascular Cardiovascular: Denies chest pain, orthopnea, palpitations, paroxysmal nocturnaldyspnea or racing heartbeat Respiratory/Chest Respiratory/Chest: Reports dyspnea and dyspnea on exertion; Denies cough, orthopnea, paroxysmal nocturnal dyspnea or sputum Gastrointestinal Gastrointestinal: Reports diarrhea and nausea; Denies abdominal pain Genitourinary Genitourinary ED: Denies dysuria, hematuria or urinary frequency Musculoskeletal Musculoskeletal: Reports myalgias; Denies arthralgias, back pain or neck pain Integumentary Denies rash Neurologic Neurologic: Reports weakness; Denies headache(s) or paresthesias Endocrine Endocrinology: Denies cold intolerance or heat intolerance Hematologic/Lymphatic Hematologic/Lymphatic: Reports systems reviewed and no addt'l complaints, exceptas documented EXAM Physical Exam Const Vital Signs: 07/05/25 17:32 07/05/25 17:34 07/05/25 17:36 Temperature 98.6 F 98.6 F Temperature Source Oral Oral Pulse Rate 78 76 Respiratory Rate 18 21 H Respiratory Effort Normal Non-Labored Respiratory Depth Normal Respiratory Pattern Normal Blood Pressure 106/46 L 127/65 H Blood Pressure Mean 66 85 Pulse Ox 96 98 Oxygen Delivery Method Room Air Room Air Room Air 07/05/25 18:08 07/05/25 18:15 07/05/25 18:15 Temperature Temperature Source Pulse Rate 76 72 Respiratory Rate 20 H 24 H Respiratory Effort Respiratory Depth Respiratory Pattern Blood Pressure 118/61 118/61 Blood Pressure Mean 77 77 Pulse Ox 98 98 Oxygen Delivery Method 07/05/25 18:30 07/05/25 18:36 07/05/25 18:38 Temperature 99.7 F H Temperature Source Oral Pulse Rate 74 74 Respiratory Rate 24 H 24 H Respiratory Effort Respiratory Depth Respiratory Pattern Blood Pressure 83/61 L 114/55 L 114/55 L Blood Pressure Mean 67 74 71 Pulse Ox 97 96 98 Oxygen Delivery Method Room Air 07/05/25 18:45 07/05/25 19:00 07/05/25 19:00 Temperature 99.9 F H Temperature Source Oral Pulse Rate 72 76 71 Respiratory Rate 19 H 21 H 26 H Respiratory Effort Respiratory Depth Respiratory Pattern Blood Pressure 116/54 L 108/53 L 108/53 L Blood Pressure Mean 70 71 68 Pulse Ox 100 97 97 Oxygen Delivery Method Room Air 07/05/25 19:22 07/05/25 19:50 07/05/25 21:00 Temperature 99.9 F H 100 F H Temperature Source Oral Pulse Rate 71 73 72 Respiratory Rate 20 H 24 H 22 H Respiratory Effort Respiratory Depth Respiratory Pattern Blood Pressure 101/53 L 97/56 L 102/47 L Blood Pressure Mean 69 69 65 Pulse Ox 98 100 96 Oxygen Delivery Method Room Air Room Air 07/05/25 22:00 Temperature 97.9 F Temperature Source Oral Pulse Rate 77 Respiratory Rate 16 Respiratory Effort Respiratory Depth Respiratory Pattern Blood Pressure 95/77 Blood Pressure Mean 83 Pulse Ox 97 Oxygen Delivery Method Room Air Positive well nourished, well developed and obese Constitutional Narrative: Patient appears pale. She does not appear well. General Appearance ED: well developed Nutritional Appearance: obese HEENT Reports dry mucous membranes HEENT Narrative: Tongue is pierced. Ears are normal. Nares patent. Posterior pharynx is normal. Mouth ED: Yes dry mucous membranes Mouth: dry mucous membranes Eyes PERRL and EOMs intact bilaterally General Eye ED: Yes pale conjunctiva; Negative for scleral icterus Neck no lymphadenopathy, supple and no JVD Resp normal respiratory effort and clear to auscultation bilaterally Cardio regular rate, regular rhythm, S1 normal heart sound, S2 normal heart sound and no murmurs GI normal to inspection, nondistended, normoactive bowel sounds, non-distended and no masses; Negative for non-tender or hepatosplenomegaly Palpation: tender suprapubic Back/Spine no CVA tenderness Extremity normal to inspection General Extremety ED: Negative for edema or tenderness General Extremity: Negative for edema Neuro oriented x3, CN's II-XII intact bilaterally and no sensory deficits noted Neuro Narrative: Awake but not alert. Sensorium / Orientation: Negative for alert Psych Mood & Affect: depressed Skin Skin Narrative: Patient is flushed in the submental area and right and left cheek region. Thereis no evidence of cellulitis i.e. induration, warmth, fluctuance lymphangitis orlymphadenopathy. Sepsis Attestation Sepsis Alert: Yes Date exam was performed: 07/05/25 Time exam was performed: 20:00 Possible Source of Sepsis: Genitourinary Fluid Resuscitation Fluid resuscitation indicated?: Yes Fluid Resuscitation ordered: 30 ml/kg fluid bolus ordered MDM MDM MDM Narrative Medical decision making narrative: Patient with encephalopathy this could be due to metabolic or infectious. Will obtain appropriate blood work. Prior records reviewed and document in the HPI narrative. Lab Data Attestation: I reviewed the patient's lab results. Lab results narrative: White count is normal. Patient had a significant drop in her hemoglobin. She was question regarding black or maroon-colored stool she denies. She denies hematuria. Hemoglobin was 13 5 and hematocrit of 39.2 on June 05, 2025. [facility]ence metabolic panel is remarkable for glucose of 593 with a CO2 of 15 andanion gap of 15. Sodium is 128 suspect this is pseudohyponatremia due to her hyperglycemia. Her creatinine is doubled. This would indicate endorgan dysfunction. Urine is consistent with infection. Urine and blood cultures wereobtained prior to starting patient on Rocephin. After reviewing vital signs andnoted that she had a drop in her blood pressure at approximately 2000 and additional 3 L of normal saline was ordered. Labs: Laboratory Results - last 24 hr 07/05/25 07/05/25 07/05/25 17:40 17:48 18:02 WBC 6.9 RBC 2.94 L Hgb 9.5 L Hct 28.2 L MCV 95.9 MCH 32.3 H MCHC 33.7 RDW Std Deviation 48.8 H RDW Coeff of Itzel 13.8 Plt Count 136 L MPV 10.4 Immature Gran % (Auto) 0.900 Neut % (Auto) 77.6 H Lymph % (Auto) 14.4 L [place] % (Auto) 5.8 Eos % (Auto) 0.9 Baso % (Auto) 0.4 Absolute Neuts (auto) 5.3 Absolute Lymphs (auto) 0.99 Nucleated RBC % 0 Sodium 128 L Potassium 3.8 Chloride 98 Carbon Dioxide 15.0 L Anion Gap 15 BUN 41 H Creatinine 1.98 H Estim Creat Clear Calc 51.75 Est GFR (MDRD) Non-Af 32 L BUN/Creatinine Ratio 20.7 H Glucose 533 H* Lactic Acid 2.2 H* Calcium 8.3 Phosphorus 3.0 Magnesium 2.2 Total Bilirubin 0.57 AST 19 ALT 26 Alkaline Phosphatase 183 H Total Protein 7.1 Albumin 3.3 L Globulin 3.7 Albumin/Globulin Ratio 0.9 b-Hydroxybutyric mmol/L 0.1 Urine Color Straw Urine Clarity Sl. Cloudy Urine pH 6.0 Ur Specific Banks 1.010 Urine Protein 30 H Urine Glucose (UA) 1000 H Urine Ketones Negative Urine Occult Blood 150 H Urine Nitrite Negative Urine Bilirubin Negative Urine Urobilinogen Normal Ur Leukocyte Esterase 100 H Urine RBC 5-10 SEEN Urine WBC 10-25 SEEN Ur Squamous Epith Cells 5-10 SEEN Urine Bacteria 3+ Urine Mucus 0 SEEN POC Glucose 459 H* 07/05/25 07/05/25 07/05/25 20:26 20:45 21:35 WBC RBC Hgb Hct MCV MCH MCHC RDW Std Deviation RDW Coeff of Itzel Plt Count MPV Immature Gran % (Auto) Neut % (Auto) Lymph % (Auto) [place] % (Auto) Eos % (Auto) Baso % (Auto) Absolute Neuts (auto) Absolute Lymphs (auto) Nucleated RBC % Sodium 130 L Potassium 3.6 Chloride 101 Carbon Dioxide 17.3 L Anion Gap 11 BUN Creatinine Estim Creat Clear Calc Est GFR (MDRD) Non-Af BUN/Creatinine Ratio Glucose Lactic Acid Calcium Phosphorus Magnesium Total Bilirubin AST ALT Alkaline Phosphatase Total Protein Albumin Globulin Albumin/Globulin Ratio b-Hydroxybutyric mmol/L Urine Color Urine Clarity Urine pH Ur Specific Banks Urine Protein Urine Glucose (UA) Urine Ketones Urine Occult Blood Urine Nitrite Urine Bilirubin Urine Urobilinogen Ur Leukocyte Esterase Urine RBC Urine WBC Ur Squamous Epith Cells Urine Bacteria Urine Mucus POC Glucose 369 H 321 H Since the beta-hydroxybutyrate is normal patient is not in DKA. She has sepsis and the cause of her metabolic acidosis. She also has hyperglycemia. ABG Data ABG results: ABG 07/05/25 17:55 Specimen Type SHIRA Sample Site Not entered VBG pH 7.32 VBG pO2 77 H VBG HCO3 16 L VBG Total CO2 17 L VBG O2 Sat (Calc) 94 H VBG Base Excess -10 L POC Mix VBG pCO2 Pt Tmp 31.6 L O2 Delivery Device Not entered Radiography Chest X-Ray - ED: 1 View and Read by ED Physician (Normal cardiac silhouette. Heart is slightly enlarged. There is no infiltrate, pneumothorax or effusion. There is no acute abnormality of the osseous structures. There is independent reviewed interpreted by me) Diagnostic Testing: Clinical Impression(s) from Imaging Studies Chest X-Ray 07/05/25 18:27 IMPRESSION: Cardiomegaly with mild vascular congestion. No airspace consolidation or sizable pleural effusion. Reading Location: [facility] EK Initial EKG: Attestation: I personally reviewed and interpreted this EKG as follows: Interpretation: Sinus Rhythm (Rate is 75. Voltage is low. LA interval is138 ms. QS duration 94 ms per QT duration 384 ms. Smyer is normal. There is nonseptic changes which is artifact.) Treatment and Re-Evaluation :: Beta hydroxybutyrate was also added. Started on insulin drip. Suspect patient is in DKA due to her sepsis. Critical Care Time Critical Care Time: Yes Critical care time (excluding procedures): 30-74 minutes (34), Including time spent: (History, physical, documentation, review of prior records, interpretation laboratories alts and images and initiation of treatment for DKA and sepsis.), Discussing w/Patient &/or Family/Volumetric Weigher, Discussing w/Consultants and Arranging Admission or Transfer Discharge Plan Dx/Rx/DC Orders Clinical Impression: Sepsis, LETITIA (obstructive sleep apnea), Complicated urinary tract infection, Acidosis, lactic, Acute kidney injury, Acute anemia, Acute hypotension, Adult BMI 45.0- 49.9 kg/sq m Disposition Disposition: Acute Care Hospital [facility] What to do if you have Problems For any increased pain, shortness of breath, bleeding, nausea or vomiting, chestpain, or any unexpected problems, contact your Primary Care Provider. Call [facility] ([phone]) or report to the closest Emergency Room. Call 911 if necessary. 07/05/252223 <Electronically signed by Abhi Pina MD> Cosigner Signature (if applicable): CC: Dr. Ivette Grimes MD ~ Signed [facility] Work Phone: [phone] 677-805309-01-2025 Radiology Diagnostic study note [facility] Imaging Services [address] [place] [address] Abdomen/Pelvis without Cont MR#: [id number] Acct: [id number] Name: TORI GRAY Rep #: [id number] : 1980 F 45 From: Clark Morin MD PCP: Dr. Ivette Grimes MD Status: ADM I N Study:Abdomen/Pelvis without Cont Date of Exa m: 07/05/25 Exam# [id number] Ordering Dr: Savi Mendoza MD PROCEDURE: ABDOMEN/PELVIS WITHOUT CONT 07/05/2025 REASON FOR EXAM: ABD PAIN, UTI, ? KIDNEY STONE TECHNIQUE: Procedure Code: CTABDPEL Modality: CT Procedure: ABDOMEN/PELVIS WITHOUT CONT Noncontrast technique limits evaluation of the abdominal and pelvic viscera. Coronal and Sagittal reconstruction series were provided. One or more dose reduction techniques were used (e.g., Automated exposure control, adjustment of the mA and/or kV according to patient size, use of iterative reconstruction technique). COMPARISON: 02/27/2022. FINDINGS: Lack of IV and oral contrast limits evaluation on portions of the study. Cholecystectomy. A 10 mm stone is noted within the UPJ of the left renal pelvis, with mild left hydronephrosis. Mildleft perinephric fat stranding is noted, likely secondary to obstruction. Mildly prominent left para-aortic lymph nodes are noted, likely reactive in nature. An IUD is seen within the uterus. The appendix is visualized and normal-appearing. No other acute abdominal or pelvic process is clearly identified. The visualized lung bases are clear. No acute osseous abnormality. No acute fracture. CT/Abdomen/Pelvis without Cont IMPRESSION: 1. A 10 mm stone at the left UPJ resulting in mild left hydronephrosis. 2. Mildly prominent reactive left para-aortic lymph nodes. [id number] CC: Dr. Shana Mendoza MD; Dr. Ivette Grimes MD ~ Decal Applier: Signed [facility]09-01-2025 History and physical note Author Shana Mendoza [facility] Note Date/Time July 05, 2025 10:25pm [facility] Medical Records Department [address] [place] [address] H&P Exam - Hospitalist 07/05/252134 MR#: [id number] Acct: [id number] Name: TORI GRAY Rep #:[id number] : 1980 45 From: Shana Mendoza MD PCP: Dr. Ivette Grimes MD Status:REG E R Location: ED HPI - General General Date of Admission: 07/05/25 Date of Service: 07/05/25 Chief Complaint: Altered mentation, elevated BS, dark urine, suprapubic discomfort, polydipsia. HPI Narrative The patient is a 45 y/o F w/ PMHx: Morbid obesity, Diabetes mellitus type II with chronic neuropathy, LETITIA on BIPAP q HS, HTN, Anxiety and Depression, GERD, Chronic migraines, s/p L shoulder surgery secondary L shoulder impingement syndrome with bursitis 06/23/[address] Quiroga with subacromial decompression and debridement with arthroscopy who presents to the [facility] ED on 07/05/2025 with history of altered mental status, polyuria, polydipsia, elevated blood sugars as well as dyspnea complaint with family noting that they have been receiving texts from her that were nonsensical with additionally reported decreased urine output that has been significantly dark in color with subjective fever and chills and general Pia's with nausea but no emesis and possibly intermittent diarrhea with mild suprapubic discomfort but no flank painprompting eventual ED evaluation to be cautious. Workup in the ED included T98.6, heart rate 78, BP 106/46, respiratory rate 18, 96% on room air with BP transiently decreasing while in the ED down to 83/61 with a MAP of 67 however most recent repeat vitals T100 oral, heart rate 72, BP 102/47, MAP 65, respiratory rate 22, 96% on room air, CBC with WBC 6.9, hemoglobin 9.5, MCV 95.9, platelet 136 without significant shift, VBG with PO277, bicarb 16, total CO2 17, CMP with sodium 130, potassium 3.6, chloride 101, carbon dioxide 17.3, anion gap 11, BUN/creatinine 41/1.98, GFR 32, glucose 533, lactic acid 2.2, hepatic profile not marked appearing aside from alk phos 183, beta hydroxybutyrate level 0.1, urinalysis with cloudy appearing urine, specific gravity 1.010, protein 30, glucose thousand, negative ketone, occult blood 150, negative nitrite, leukocyte Estrace 100 with urine WBCs 10-25 although squamous epithelial cells of note are 5-10 however there is 3+ urine bacteria, chest x-ray with cardiomegaly with questionable mild vascular congestion with no other acute findings, blood culture x 2 pending per ED, urine culture pending per ED. In the ED patient administered aggressive IV fluid hydration, Tylenol 650 mg p.o. x 1, Rocephin 2 g IV x 1, transition to maintenance IV fluids at 150 mL/h, initiated on insulin drip. [facility] Medical History Impingement of left shoulder Diabetes Fatty liver [...] 11/10/24 History tablet (Nurtec ODT) headache semaglutide 2 mg/dose (8 mg/3 mL) 2 mg subcut QWEEK Unknown History subcutaneous pen injector (Ozempic) Allergy/AdvReac Type Severity Reaction Status Date / Time Corticosteroids Allergy Hives Verified 07/05/25 17:33 (Glucocorticoids) (steroids) lidocaine AdvReac Intermediate Hives Verified 07/05/25 17:33 Family History Father Diabetes Myocardial infarction Pancreatic cancer Mother Alcohol abuse Drug abuse Grandfather Diabetes Grandmother Lung cancer Grandmother Heart disease Triple bypass surgery Surgical History History of urethral stent (~2018) Hx laparoscopic cholecystectomy (~2005) H/O: (~2005) Social History household members: none Smoking Status: Never smoker alcohol intake: never substance use type: does not use caffeine: Yes Type: coffee what type of physical activity do you participate in: walking frequency: daily seatbelt use: always do you feel safe at home: Yes ROS ROS Narrative Admission Review of Systems: CONSTITUTIONAL: No weight loss, + fever, chills, weakness or fatigue. HEENT: Eyes: No visual loss, blurred vision, double vision or yellow sclerae. Ears, Nose, Throat: No hearing loss, sneezing, congestion, runny nose or sore throat. SKIN: No rash or itching, lesions, wounds. CARDIOVASCULAR: No chest pain, chest pressure or chest discomfort, palpitations,edema, orthopnea, syncopal events. RESPIRATORY: + Dyspnea. No cough or sputum, wheezing, hemoptysis. GASTROINTESTINAL: + anorexia, nausea, loose stools. No vomiting, abdominal pain, melena, BRBPR. GENITOURINARY: + Suprapubic discomfort, decreased urine output, dark appearing urine. No urgency or retention. NEUROLOGICAL: + Altered mentation, chronic bilateral lower extremity neuropathy. No headache, dizziness, syncope, paralysis, ataxia, focal weakness, change in bowel or bladder control, seizure. MUSCULOSKELETAL: + muscle, back pain, joint pain or stiffness. HEMATOLOGIC: + Acute on possibly chronic anemia of unclear etiology, no specificeasy history of bleeding or bruising. LYMPHATICS: No enlarged nodes. No history of splenectomy. PSYCHIATRIC: + History of anxiety and depression. ENDOCRINOLOGIC: No reports of sweating, cold or heat intolerance. + polydipsia. ALLERGIES:+ History of hives, allegic rhinitis. Vital Signs Vital Signs Vital Signs: 07/05/25 17:32 07/05/25 17:34 07/05/25 17:36 Temperature 98.6 F 98.6 F Temperature Source Oral Oral Pulse Rate 78 76 Respiratory Rate 18 21 H Respiratory Effort Normal Non-Labored Respiratory Depth Normal Respiratory Pattern Normal Blood Pressure 106/46 L 127/65 H Blood Pressure Mean 66 85 Pulse Ox 96 98 Oxygen Delivery Method Room Air Room Air Room Air 07/05/25 18:08 07/05/25 18:15 07/05/25 18:15 Temperature Temperature Source Pulse Rate 76 72 Respiratory Rate 20 H 24 H Respiratory Effort Respiratory Depth Respiratory Pattern Blood Pressure 118/61 118/61 Blood Pressure Mean 77 77 Pulse Ox 98 98 Oxygen Delivery Method 07/05/25 18:30 07/05/25 18:36 07/05/25 18:38 Temperature 99.7 F H Temperature Source Oral Pulse Rate 74 74 Respiratory Rate 24 H 24 H Respiratory Effort Respiratory Depth Respiratory Pattern Blood Pressure 83/61 L 114/55 L 114/55 L Blood Pressure Mean 67 74 71 Pulse Ox 97 96 98 Oxygen Delivery Method Room Air 07/05/25 18:45 07/05/25 19:00 07/05/25 19:00 Temperature 99.9 F H Temperature Source Oral Pulse Rate 72 76 71 Respiratory Rate 19 H 21 H 26 H Respiratory Effort Respiratory Depth Respiratory Pattern Blood Pressure 116/54 L 108/53 L 108/53 L Blood Pressure Mean 70 71 68 Pulse Ox 100 97 97 Oxygen Delivery Method Room Air 07/05/25 19:22 07/05/25 19:50 07/05/25 21:00 Temperature 99.9 F H 100 F H Temperature Source Oral Pulse Rate 71 73 72 Respiratory Rate 20 H 24 H 22 H Respiratory Effort Respiratory Depth Respiratory Pattern Blood Pressure 101/53 L 97/56 L 102/47 L Blood Pressure Mean 69 69 65 Pulse Ox 98 100 96 Oxygen Delivery Method Room Air Room Air Weight Weight: 289 lb 7.471 oz Body Mass Index (BMI) 45.3 Physical Exam Narrative Physical Examination: General: Awake, alert, oriented x 3 and cooperative, seated upright in ED bed inno apparent distress, fatigued and ill-appearing. Skin: Normal color, normal turgor, no icterus, no cyanosis except occasional stage ecchymoses, abrasion, status post recent left shoulder surgery with Steri-Strips still intact over trocar incisions, well-appearing, no drainage, no redness. HEENT: AT/NC, EOMI, PERRLA, dry MM, no carotid bruits, difficult to discern JVD given thickened neck. Lungs: CTA bilaterally, moderate effort, mild decrease BL bases, no rales, ronchi or wheezing. Heart: Regular rate and rhythm; no gallop, rub audible. Abdomen: Soft, morbidly obese, NTTP no suprapubic tenderness elicited, distant BS, difficult to discern distention and HSM given habitus. Extremities: No cyanosis, no clubbing, no significant distal edema noted. Neurological: Patient awake, alert, oriented as noted, cognitive function intact; pupils equally reactive to light and accommodation, cranial nerves grossly normal, moving all 4 extremities, no focal deficits, strength moderatelyto severely globally decreased secondary to acute presentation. Psychiatric: Affect appears flat, fatigued, ill-appearing, no acute evidence of depressive or anxiety feelings. Results Lab / Micro Data 07/05/25 17:48 07/05/25 20:45 Labs: Laboratory Results - last 24 hr 07/05/25 17:40: POC Glucose 459 H* 07/05/25 17:48: WBC 6.9, RBC 2.94 L, Hgb 9.5 L, Hct 28.2 L, MCV 95.9, MCH 32.3 H, MCHC 33.7, RDW Std Deviation 48.8 H, RDW Coeff of Itzel 13.8, Plt Count 136 L, MPV 10.4, Immature Gran % (Auto) 0.900, Neut % (Auto) 77.6 H, Lymph % (Auto) 14.4 L, [place] % (Auto) 5.8, Eos % (Auto) 0.9, Baso % (Auto) 0.4, Absolute Neuts (auto) 5.3, Absolute Lymphs (auto) 0.99, Nucleated RBC % 0, Sodium 128 L, Potassium 3.8, Chloride 98, Carbon Dioxide 15.0 L, Anion Gap 15, BUN 41 H, Creatinine 1.98 H, Estim Creat Clear Calc 51.75, Est GFR (MDRD) Non-Af 32 L, BUN/Creatinine Ratio 20.7 H, Glucose 533 H*, Lactic Acid 2.2 H*, Calcium 8.3, Phosphorus 3.0, Magnesium 2.2, Total Bilirubin 0.57, AST 19, ALT 26, Alkaline Phosphatase 183 H, Total Protein 7.1, Albumin 3.3 L, Globulin 3.7, Albumin/Globulin Ratio 0.9, b-Hydroxybutyric mmol/L 0.1 07/05/25 18:02: Urine Color Straw, Urine Clarity Sl. Cloudy, Urine pH 6.0, Ur Specific [place] 1.010, Urine Protein 30 H, Urine Glucose (UA) 1000 H, Urine Ketones Negative, Urine Occult Blood 150 H, Urine Nitrite Negative, Urine Bilirubin Negative, Urine Urobilinogen Normal, Ur Leukocyte Esterase 100 H, Urine RBC 5-10 SEEN, Urine WBC 10-25 SEEN, Ur Squamous Epith Cells 5-10 SEEN, Urine Bacteria 3+, Urine Mucus 0 SEEN 07/05/25 20:26: POC Glucose 369 H 07/05/25 20:45: Sodium 130 L, Potassium 3.6, Chloride 101, Carbon Dioxide 17.3 L, Anion Gap 11 ABG Data ABG results: ABG 07/05/25 17:55 Specimen Type SHIRA Sample Site Not entered VBG pH 7.32 VBG pO2 77 H VBG HCO3 16 L VBG Total CO2 17 L VBG O2 Sat (Calc) 94 H VBG Base Excess -10 L POC Mix VBG pCO2 Pt Tmp 31.6 L O2 Delivery Device Not entered Imaging Radiology Impression Chest X-Ray 07/05/25 18:27 IMPRESSION: Cardiomegaly with mild vascular congestion. No airspace consolidation or sizable pleural effusion. Reading Location: [id number] Assessment & Plan Assessment/Plan (1) Sepsis: (2) Complicated urinary tract infection: PLAN: Plan The patient is a 45 y/o F w/ PMHx: Morbid obesity, Diabetes mellitus type II with chronic neuropathy, LETITIA on BIPAP q HS, HTN, Anxiety and Depression, GERD, Chronic migraines who presents to the [facility] ED on 07/05/2025 with history of altered mental status, polyuria, polydipsia, elevated blood sugars as well as dyspnea complaint with family noting that they have been receiving texts from her that were nonsensical with additionally reported decreased urine output that has been significantly dark in color with subjectivefever and chills and general Pia's with nausea but no emesis and possibly intermittent diarrhea with mild suprapubic discomfort but no flank pain prompting eventual ED evaluation to be cautious. #1. Acute hyperglycemia with significant electrolyte disturbances with notable hyponatremia likely falsely decreased given significant hyperglycemia with suspected Acute HHS, DKA ruled out with normal anion gap as well as normal beta hydroxybutyrate level: Will admit to the ICU, will continue aggressive IV fluid hydration, will continue insulin drip initiated per ED, will request osmolality level as suspect HHS will continue to obtain serial BMPs given electrolyte disturbances, magnesium and phosphorus levels per ED normal range, continue to trend as needed with repletion as needed, hemoglobin A1c level requested, nutrition consulted. #2. Acute Sepsis secondary to Acute Complicated Urinary Tract Infection w/ concurrently as noted #1 as a result likely (source, hypotensive, tachypneic, acute kidney injury, lactic acidosis): UA upon ED evaluation remarkable, pendingUCx, continue aggressive IVFs per protocol with ED initiated, monitor I/Os, continue IV Rocephin w/ transition as able pending sensitivities and speciation.Bld cx x 2 obtained in the ED. of note patient does have a history of kidney stones therefore if clinically not improving low threshold to obtain imaging to assure no concerning findings that would require urology involvement concurrently. #3. Acute kidney injury on CKD stage II/1 per review of GFR trending: Secondaryto acute presentation as noted above #1, #2. Admission BUN/Cr 41/1.98, GFR 32, prior baseline creatinine noted to be primarily 0.7-0.8. Will hydrate, hold nephrotoxic medications and repeat chemistry in AM. If no improvement would planFeNa assessment and further evaluation #4. Acute on chronic anemia, normocytic, unclear etiology: Admission hemoglobin9.5, MCV 95.9, previous hemoglobin primarily 13 range however has dropped intermittently upon lab review into the 11 range, unclear exact etiology as no reported hematemesis or altered stool appearance or heavy menstruation, will continue to trend, iron panel, ferritin, guaiac requested to be cautious. #5. Acute thrombocytopenia, unclear etiology: Platelets 136, baseline usually normal range, likely reactive given acute presentation, will continue to closelytrend CBC. #6. Hypertension: Holding all hypertensive regimen given hypotensive presentation, add back once clinically appropriate blood pressure as well as kidney function. #7. Anxiety and depression: Will continue patient home fluoxetine however adjustments may be necessary if renal function worsens/does not improve. #8. Chronic migraines: Will temporally hold patient rimegepant regimen, will continue topiramate regimen, continue to closely monitor labs given alterations as noted above. #9. Morbid Obesity: Weight loss and lifestyle changes encouraged, nutrition consulted. #10. LETITIA: Will continue BiPAP nightly. #11. GERD: Will continue patient home PPI. #12. DVT prophylaxis: SCDs, defer chemoprophylaxis given acute on chronic anemia as noted. Charges/Coding Visit Charges Inpatient E&M: 43350 Init Hosp L3 07/05/252224 <Electronically signed by Shana Mendoza MD> Cosigner Signature (if applicable): CC: Dr. Shana Mendoza MD; Dr. Ivette Grimes MD~ Signed [facility] Work Phone: [phone] 530-223809-01-2025 History and physical note [facility] Medical Records Department [address] [place] [id number] H&P Exam - Hospitalist 07/05/252134 MR#: [id number] Acct: [id number] Name: TORI GRAY Rep #:[id number] : 1980 45 From: Shana Mendoza MD PCP: Dr. Ivette Grimes MD Status:REG E R Location: ED HPI - General General Date of Admission: 07/05/25 Date of Service: 07/05/25 Chief Complaint: Altered mentation, elevated BS, dark urine, suprapubic discomfort, polydipsia. HPI Narrative The patient is a 45 y/o F w/ PMHx: Morbid obesity, Diabetes mellitus type II with chronic neuropathy, LETITIA on BIPAP q HS, HTN, Anxiety and Depression, GERD, Chronic migraines, s/p L shoulder surgery secondary L shoulder impingement syndrome with bursitis 06/23/[address] Quiroga with subacromial decompression and debridement with arthroscopy who presents to the [facility] ED on 07/05/2025 with history of altered mental status, polyuria, polydipsia, elevated blood sugars as well as dyspnea complaint with family noting that they have been receiving texts from her that were nonsensical with additionally reported decreased urine output that has been significantly dark in color with subjective fever and chills and general Pia's with nausea but no emesis and possibly intermittentdiarrhea with mild suprapubic discomfort but no flank painprompting eventual ED evaluation to be cautious. Workup in the ED included T98.6, heart rate 78, BP 106/46, respiratory rate 18, 96% on room air with BP transiently decreasing while in the ED down to 83/61 with a MAP of 67 however most recent repeat vitals T100 oral, heart rate 72, BP 102/47, MAP 65, respiratory rate 22, 96% on room air, CBC with WBC 6.9, hemoglobin 9.5, MCV 95.9, platelet 136 without significant shift, VBG with PO277, bicarb 16, total CO2 17, CMP with sodium 130, potassium 3.6, chloride 101, carbon dioxide 17.3, aniongap 11, BUN/creatinine 41/1.98, GFR 32, glucose 533, lactic acid 2.2, hepatic profile not marked appearing aside from alk phos 183, beta hydroxybutyrate level 0.1, urinalysis with cloudy appearing urine, specific gravity 1.010, protein 30, glucose thousand, negative ketone, occult blood 150, negative nitrite, leukocyte Estrace 100 with urine WBCs 10-25 although squamous epithelial cells of note are 5-10 however there is 3+ urine bacteria, chest x- ray with cardiomegaly with questionable mild vascular congestion with no other acute findings, blood culture x 2 pending per ED, urine culture pending per ED. In the ED patient administered aggressive IV fluid hydration, Tylenol 650 mg p.o. x 1, Rocephin 2 g IV x 1, transition to maintenance IV fluids at 150 mL/h, initiated on insulin drip. [facility] Medical History Impingement of left shoulder Diabetes Fatty liver [...] 11/10/24 History tablet (Nurtec ODT) headache semaglutide 2 mg/dose (8 mg/3 mL) 2 mg subcut QWEEK Unknown History subcutaneous pen injector (Ozempic) Allergy/AdvReac Type Severity Reaction Status Date / Time Corticosteroids Allergy Hives Verified 07/05/25 17:33 (Glucocorticoids) (steroids) lidocaine AdvReac Intermediate Hives Verified 07/05/25 17:33 Family History Father Diabetes Myocardial infarction Pancreatic cancer Mother Alcohol abuse Drug abuse Grandfather Diabetes Grandmother Lung cancer Grandmother Heart disease Triple bypass surgery Surgical History History of urethral stent (~2018) Hx laparoscopic cholecystectomy (~2005) H/O: (~2005) Social History household members: none Smoking Status: Never smoker alcohol intake: never substance use type: does not use caffeine: Yes Type: coffee what type of physical activity do you participate in: walking frequency: daily seatbelt use: always do you feel safe at home: Yes ROS ROS Narrative Admission Review of Systems: CONSTITUTIONAL: No weight loss, + fever, chills, weakness or fatigue. HEENT: Eyes: No visual loss, blurred vision, double vision or yellow sclerae. Ears, Nose, Throat: No hearing loss, sneezing, congestion, runny nose or sore throat. SKIN: No rash or itching, lesions, wounds. CARDIOVASCULAR: No chest pain, chest pressure or chest discomfort, palpitations,edema, orthopnea, syncopal events. RESPIRATORY: + Dyspnea. No cough or sputum, wheezing, hemoptysis. GASTROINTESTINAL: + anorexia, nausea, loose stools. No vomiting, abdominal pain, melena, BRBPR. GENITOURINARY: + Suprapubic discomfort, decreased urine output, dark appearing urine. No urgency orretention. NEUROLOGICAL: + Altered mentation, chronic bilateral lower extremity neuropathy. No headache, dizziness, syncope, paralysis, ataxia, focal weakness, change in bowel or bladder control, seizure. MUSCULOSKELETAL: + muscle, back pain, joint pain or stiffness. HEMATOLOGIC: + Acute on possibly chronic anemia of unclear etiology, no specificeasy history of bleeding or bruising. LYMPHATICS: No enlarged nodes. No history of splenectomy. PSYCHIATRIC: + History of anxiety and depression. ENDOCRINOLOGIC: No reports of sweating, cold or heat intolerance. + polydipsia. ALLERGIES:+ History of hives, allegic rhinitis. Vital Signs Vital Signs Vital Signs: 07/05/25 17:32 07/05/25 17:34 07/05/25 17:36 Temperature 98.6 F 98.6 F Temperature Source Oral Oral Pulse Rate 78 76 Respiratory Rate 18 21 H Respiratory Effort Normal Non-Labored Respiratory Depth Normal Respiratory Pattern Normal Blood Pressure 106/46 L 127/65 H Blood Pressure Mean 66 85 Pulse Ox 96 98 Oxygen Delivery Method Room Air Room Air Room Air 07/05/25 18:08 07/05/25 18:15 07/05/25 18:15 Temperature Temperature Source Pulse Rate 76 72 Respiratory Rate 20 H 24 H Respiratory Effort Respiratory Depth Respiratory Pattern Blood Pressure 118/61 118/61 Blood Pressure Mean 77 77 Pulse Ox 98 98 Oxygen Delivery Method 07/05/25 18:30 07/05/25 18:36 07/05/25 18:38 Temperature 99.7 F H Temperature Source Oral Pulse Rate 74 74 Respiratory Rate 24 H 24 H Respiratory Effort Respiratory Depth Respiratory Pattern Blood Pressure 83/61 L 114/55 L 114/55 L Blood Pressure Mean 67 74 71 Pulse Ox 97 96 98 Oxygen Delivery Method Room Air 07/05/25 18:45 07/05/25 19:00 07/05/25 19:00 Temperature 99.9 F H Temperature Source Oral Pulse Rate 72 76 71 Respiratory Rate 19 H 21 H 26 H Respiratory Effort Respiratory Depth Respiratory Pattern Blood Pressure 116/54 L 108/53 L 108/53 L Blood Pressure Mean 70 71 68 Pulse Ox 100 97 97 Oxygen Delivery Method Room Air 07/05/25 19:22 07/05/25 19:50 07/05/25 21:00 Temperature 99.9 F H 100 F H Temperature Source Oral Pulse Rate 71 73 72 Respiratory Rate 20 H 24 H 22 H Respiratory Effort Respiratory Depth Respiratory Pattern Blood Pressure 101/53 L 97/56 L 102/47 L Blood Pressure Mean 69 69 65 Pulse Ox 98 100 96 Oxygen Delivery Method Room Air Room Air Weight Weight: 289 lb 7.471 oz Body Mass Index (BMI) 45.3 Physical Exam Narrative Physical Examination: General: Awake, alert, oriented x 3 and cooperative, seated upright in ED bed inno apparent distress, fatigued and ill-appearing. Skin: Normal color, normal turgor, no icterus, no cyanosis except occasional stage ecchymoses, abrasion, status post recent left shoulder surgery with Steri- Strips still intact over trocar incisions,well-appearing, no drainage, no redness. HEENT: AT/NC, EOMI, PERRLA, dry MM, no carotid bruits, difficult to discern JVD given thickened neck. Lungs: CTA bilaterally, moderate effort, mild decrease BL bases, no rales, ronchi or wheezing. Heart: Regular rate and rhythm; no gallop, rub audible. Abdomen: Soft, morbidly obese, NTTP no suprapubic tenderness elicited, distant BS, difficult to discern distention and HSM given habitus. Extremities: No cyanosis, no clubbing, no significant distal edema noted. Neurological: Patient awake, alert, oriented as noted, cognitive function intact; pupils equally reactive to light and accommodation, cranial nerves grossly normal, moving all 4 extremities, no focaldeficits, strength moderatelyto severely globally decreased secondary to acute presentation. Psychiatric: Affect appears flat, fatigued, ill-appearing, no acute evidence of depressive or anxiety feelings. Results Lab / Micro Data 07/05/25 17:48 07/05/25 20:45 Labs: Laboratory Results - last 24 hr 07/05/25 17:40: POC Glucose 459 H* 07/05/25 17:48: WBC 6.9, RBC 2.94 L, Hgb 9.5 L, Hct 28.2 L, MCV 95.9, MCH 32.3 H, MCHC 33.7, RDW Std Deviation 48.8 H, RDW Coeff of Itzel 13.8, Plt Count 136 L, MPV 10.4, Immature Gran % (Auto) 0.900, Neut % (Auto) 77.6 H, Lymph % (Auto) 14.4 L, [place] % (Auto) 5.8, Eos % (Auto) 0.9, Baso % (Auto) 0.4,Absolute Neuts (auto) 5.3, Absolute Lymphs (auto) 0.99, Nucleated RBC % 0, Sodium 128 L, Potassium 3.8, Chloride 98, Carbon Dioxide 15.0 L, Anion Gap 15, BUN 41 H, Creatinine 1.98 H, Estim Creat Clear Calc 51.75, Est GFR (MDRD) Non-Af 32 L, BUN/Creatinine Ratio 20.7 H, Glucose 533 H*, Lactic Acid 2.2 H*, Calcium 8.3, Phosphorus 3.0, Magnesium 2.2, Total Bilirubin 0.57, AST 19, ALT 26, Alkaline Phosphatase 183 H, Total Protein 7.1, Albumin 3.3 L, Globulin 3.7, Albumin/Globulin Ratio 0.9, b-Hydroxybutyric mmol/L 0.1 07/05/25 18:02: Urine Color Straw, Urine Clarity Sl. Cloudy, Urine pH 6.0, Ur Specific Banks 1.010, Urine Protein 30 H, Urine Glucose (UA) 1000 H, Urine Ketones Negative, Urine Occult Blood 150 H, Urine Nitrite Negative, Urine Bilirubin Negative, Urine Urobilinogen Normal, Ur Leukocyte Esterase 100 H, Urine RBC 5-10 SEEN, Urine WBC 10-25 SEEN, Ur Squamous Epith Cells 5-10 SEEN, Urine Bacteria 3+, Urine Mucus 0 SEEN 07/05/25 20:26: POC Glucose 369 H 07/05/25 20:45: Sodium 130 L, Potassium 3.6, Chloride 101, Carbon Dioxide 17.3 L, Anion Gap 11 ABG Data ABG results: ABG 07/05/25 17:55 Specimen Type SHIRA Sample Site Not entered VBG pH 7.32 VBG pO2 77 H VBG HCO3 16 L VBG Total CO2 17 L VBG O2 Sat (Calc) 94 H VBG Base Excess -10 L POC Mix VBG pCO2 Pt Tmp 31.6 L O2 Delivery Device Not entered Imaging Radiology Impression Chest X-Ray 07/05/25 18:27 IMPRESSION: Cardiomegaly with mild vascular congestion. No airspace consolidation or sizable pleural effusion. Reading Location: [id number] Assessment & Plan Assessment/Plan (1) Sepsis: (2) Complicated urinary tract infection: PLAN: Plan The patient is a 45 y/o F w/ PMHx: Morbid obesity, Diabetes mellitus type II with chronic neuropathy, LETITIA on BIPAP q HS, HTN, Anxiety and Depression, GERD, Chronic migraines who presents to the [facility] ED on 07/05/2025 with history of altered mental status, polyuria, polydipsia, elevated blood sugars as well as dyspnea complaint with family noting that they have been receiving texts from her that were nonsensical with additionally reported decreased urine output that has been significantly dark in color with subjectivefever and chills and general Pia's with nausea but no emesis and possibly intermittent diarrhea with mild suprapubic discomfort but no flank pain prompting eventual ED evaluation to be cautious. #1. Acute hyperglycemia with significant electrolyte disturbances with notable hyponatremia likely falsely decreased given significant hyperglycemia with suspected Acute HHS, DKA ruled out with normal anion gap as well as normal beta hydroxybutyrate level: Will admit to the ICU, will continue aggressive IV fluid hydration, will continue insulin drip initiated per ED, will request osmolality levelas suspect HHS will continue to obtain serial BMPs given electrolyte disturbances, magnesium and phosphorus levels per ED normal range, continue to trend as needed with repletion as needed, hemoglobin A1c level requested, nutrition consulted. #2. Acute Sepsis secondary to Acute Complicated Urinary Tract Infection w/ concurrently as noted #1as a result likely (source, hypotensive, tachypneic, acute kidney injury, lactic acidosis): UA uponED evaluation remarkable, pendingUCx, continue aggressive IVFs per protocol with ED initiated, monitor I/Os, continue IV Rocephin w/ transition as able pending sensitivities and speciation.Bld cx x 2obtained in the ED. of note patient does have a history of kidney stones therefore if clinically not improving low threshold to obtain imaging to assure no concerning findings that would require urology involvement concurrently. #3. Acute kidney injury on CKD stage II/1 per review of GFR trending: Secondaryto acute presentation as noted above #1, #2. Admission BUN/Cr 41/1.98, GFR 32, prior baseline creatinine noted to be primarily 0.7-0.8. Will hydrate, hold nephrotoxic medications and repeat chemistry in AM. If no improvement would planFeNa assessment and further evaluation #4. Acute on chronic anemia, normocytic, unclear etiology: Admission hemoglobin9.5, MCV 95.9, previous hemoglobin primarily 13 range however has dropped intermittently upon lab review into the 11 range, unclear exact etiology as no reported hematemesis or altered stool appearance or heavy menstruation, will continue to trend, iron panel, ferritin, guaiac requested to be cautious. #5. Acute thrombocytopenia, unclear etiology: Platelets 136, baseline usually normal range, likely reactive given acute presentation, will continue to closelytrend CBC. #6. Hypertension: Holding all hypertensive regimen given hypotensive presentation, add back once clinically appropriate blood pressure as well as kidney function. #7. Anxiety and depression: Will continue patient home fluoxetine however adjustments may be necessary if renal function worsens/does not improve. #8. Chronic migraines: Will temporally hold patient rimegepant regimen, will continue topiramate regimen, continue to closely monitor labs given alterations as noted above. #9. Morbid Obesity: Weight loss and lifestyle changes encouraged, nutrition consulted. #10. LETITIA: Will continue BiPAP nightly. #11. GERD: Will continue patient home PPI. #12. DVT prophylaxis: SCDs, defer chemoprophylaxis given acute on chronic anemia as noted. Charges/Coding Visit Charges Inpatient E&M: 57458 Init Hosp L3 07/05/252224 Cosigner Signature (if applicable): CC: Dr. Shana Mendoza MD; Dr. Ivette Grimes MD~ Signed [facility]09-01-2025 Discharge summary [facility] Medical Records Department [address] [place] [address] Emergency Department Summary 07/05/25 MR#: [id number] Acct: [id number] Name: TORI GRAY Rep #:[id number] : 1980 45 From: Abhi Pina MD PCP: Dr. Ivette Grimes MD Status:REG E R Location: ED HPI History of Present Illness Chief Complaint: Shortness of Breath Detail of Chief Complaint: Altered mental status, thirst, elevated blood sugar, shortness of breath, l Informant: patient and family (Daughter states she has received text messages that do not make sense.) Onset/Context/Timing Onset: Days (Saturday) Context: Sudden Onset Timing: Continuous and Waxes and wanes Quality: Altered mental status, decreased urine output, dark urine, thirst Location: Multiple Current Severity: Moderate Maximum Severity: Severe Worsened by: Unknown certain Relieved by: Nothing Associated Symptoms Associated Symptoms: Chills with subjective fever Narrative Narrative: Patient is a 45-year-old woman. 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 She presents because she not been feeling well. Daughter states she is beensending unusual and weird text that do not make sense. Subjective fever with chills. Thirst dry mouth. Complains of shortness of breath. Denies dyspnea on exertion, orthopnea or PND. Denies chest discomfort of any type. Does endorse nausea without vomiting. Said some intermittent diarrhea. She has not been on antibiotic in the past month. She reports decreased urine output and dark-colored urine.She has some mild discomfort in the suprapubic area describes itas pressure. She denies back or flank pain. She denies skin lesions. She states her sugars normally run 11[birth year]24[birth year]1929. They have been greater than 400 the past 12 hours. Prior similar symptoms: No Recent Illness/Hospitalization: No PFSH [facility] Medical History Impingement of left shoulder Diabetes Fatty liver [...] 11/10/24 History tablet (Nurtec ODT) headache semaglutide 2 mg/dose (8 mg/3 mL) 2 mg subcut QWEEK Unknown History subcutaneous pen injector (Ozempic) Allergy/AdvReac Type Severity Reaction Status Date / Time Corticosteroids Allergy Hives Verified 07/05/25 17:33 (Glucocorticoids) (steroids) lidocaine AdvReac Intermediate Hives Verified 07/05/25 17:33 Family History Father Diabetes Myocardial infarction Pancreatic cancer Mother Alcohol abuse Drug abuse Grandfather Diabetes Grandmother Lung cancer Grandmother Heart disease Triple bypass surgery Surgical History History of urethral stent (~2018) Hx laparoscopic cholecystectomy (~2005) H/O: (~2005) Social History household members: none Smoking Status: Never smoker alcohol intake: never substance use type: does not use caffeine: Yes Type: coffee what type of physical activity do you participate in: walking frequency: daily seatbelt use: always do you feel safe at home: Yes ROS ROS ED Constitutional Constitutional ED: Reports chills, fever(s) and subjective; Denies sweats Eyes Eyes: Denies blurry vision, change in vision or diplopia ENT ENT ED: Denies ear pain, rhinorrhea or sore throat Cardiovascular Cardiovascular: Denies chest pain, orthopnea, palpitations, paroxysmal nocturnaldyspnea or racing heartbeat Respiratory/Chest Respiratory/Chest: Reports dyspnea and dyspnea on exertion; Denies cough, orthopnea, paroxysmal nocturnal dyspnea or sputum Gastrointestinal Gastrointestinal: Reports diarrhea and nausea; Denies abdominal pain Genitourinary Genitourinary ED: Denies dysuria, hematuria or urinary frequency Musculoskeletal Musculoskeletal: Reports myalgias; Denies arthralgias, back pain or neck pain Integumentary Denies rash Neurologic Neurologic: Reports weakness; Denies headache(s) or paresthesias Endocrine Endocrinology: Denies cold intolerance or heat intolerance Hematologic/Lymphatic Hematologic/Lymphatic: Reports systems reviewed and no addt'l complaints, exceptas documented EXAM Physical Exam Const Vital Signs: 07/05/25 17:32 07/05/25 17:34 07/05/25 17:36 Temperature 98.6 F 98.6 F Temperature Source Oral Oral Pulse Rate 78 76 Respiratory Rate 18 21 H Respiratory Effort Normal Non-Labored Respiratory Depth Normal Respiratory Pattern Normal Blood Pressure 106/46 L 127/65 H Blood Pressure Mean 66 85 Pulse Ox 96 98 Oxygen Delivery Method Room Air Room Air Room Air 07/05/25 18:08 07/05/25 18:15 07/05/25 18:15 Temperature Temperature Source Pulse Rate 76 72 Respiratory Rate 20 H 24 H Respiratory Effort Respiratory Depth Respiratory Pattern Blood Pressure 118/61 118/61 Blood Pressure Mean 77 77 Pulse Ox 98 98 Oxygen Delivery Method 07/05/25 18:30 07/05/25 18:36 07/05/25 18:38 Temperature 99.7 F H Temperature Source Oral Pulse Rate 74 74 Respiratory Rate 24 H 24 H Respiratory Effort Respiratory Depth Respiratory Pattern Blood Pressure 83/61 L 114/55 L 114/55 L Blood Pressure Mean 67 74 71 Pulse Ox 97 96 98 Oxygen Delivery Method Room Air 07/05/25 18:45 07/05/25 19:00 07/05/25 19:00 Temperature 99.9 F H Temperature Source Oral Pulse Rate 72 76 71 Respiratory Rate 19 H 21 H 26 H Respiratory Effort Respiratory Depth Respiratory Pattern Blood Pressure 116/54 L 108/53 L 108/53 L Blood Pressure Mean 70 71 68 Pulse Ox 100 97 97 Oxygen Delivery Method Room Air 07/05/25 19:22 07/05/25 19:50 07/05/25 21:00 Temperature 99.9 F H 100 F H Temperature Source Oral Pulse Rate 71 73 72 Respiratory Rate 20 H 24 H 22 H Respiratory Effort Respiratory Depth Respiratory Pattern Blood Pressure 101/53 L 97/56 L 102/47 L Blood Pressure Mean 69 69 65 Pulse Ox 98 100 96 Oxygen Delivery Method Room Air Room Air 07/05/25 22:00 Temperature 97.9 F Temperature Source Oral Pulse Rate 77 Respiratory Rate 16 Respiratory Effort Respiratory Depth Respiratory Pattern Blood Pressure 95/77 Blood Pressure Mean 83 Pulse Ox 97 Oxygen Delivery Method Room Air Positive well nourished, well developed and obese Constitutional Narrative: Patient appears pale. She does not appear well. General Appearance ED: well developed Nutritional Appearance: obese HEENT Reports dry mucous membranes HEENT Narrative: Tongue is pierced. Ears are normal. Nares patent. Posterior pharynx is normal. Mouth ED: Yes dry mucous membranes Mouth: dry mucous membranes Eyes PERRL and EOMs intact bilaterally General Eye ED: Yes pale conjunctiva; Negative for scleral icterus Neck no lymphadenopathy, supple and no JVD Resp normal respiratory effort and clear to auscultation bilaterally Cardio regular rate, regular rhythm, S1 normal heart sound, S2 normal heart sound and no murmurs GI normal to inspection, nondistended, normoactive bowel sounds, non-distended and no masses; Negativefor non-tender or hepatosplenomegaly Palpation: tender suprapubic Back/Spine no CVA tenderness Extremity normal to inspection General Extremety ED: Negative for edema or tenderness General Extremity: Negative for edema Neuro oriented x3, CN's II-XII intact bilaterally and no sensory deficits noted Neuro Narrative: Awake but not alert. Sensorium / Orientation: Negative for alert Psych Mood & Affect: depressed Skin Skin Narrative: Patient is flushed in the submental area and right and left cheek region. Thereis no evidence of cellulitis i.e. induration, warmth, fluctuance lymphangitis orlymphadenopathy. Sepsis Attestation Sepsis Alert: Yes Date exam was performed: 07/05/25 Time exam was performed: 20:00 Possible Source of Sepsis: Genitourinary Fluid Resuscitation Fluid resuscitation indicated?: Yes Fluid Resuscitation ordered: 30 ml/kg fluid bolus ordered MDM MDM MDM Narrative Medical decision making narrative: Patient with encephalopathy this could be due to metabolic or infectious. Will obtain appropriate blood work. Prior records reviewed and document in the HPI narrative. Lab Data Attestation: I reviewed the patient's lab results. Lab results narrative: White count is normal. Patient had a significant drop in her hemoglobin. She was question regardingblack or maroon-colored stool she denies. She denies hematuria. Hemoglobin was 13 5 and hematocrit of 39.2 on June 05, 2025. Competence metabolic panel is remarkable for glucose of 593 with a CO2 of15 andanion gap of 15. Sodium is 128 suspect this is pseudohyponatremia due to her hyperglycemia. Her creatinine is doubled. This would indicate endorgan dysfunction. Urine is consistent with infection. Urine and blood cultures wereobtained prior to starting patient on Rocephin. After reviewing vital signs andnoted that she had a drop in her blood pressure at approximately 2000 and additional 3 Lof normal saline was ordered. Labs: Laboratory Results - last 24 hr 07/05/25 07/05/25 07/05/25 17:40 17:48 18:02 WBC 6.9 RBC 2.94 L Hgb 9.5 L Hct 28.2 L MCV 95.9 MCH 32.3 H MCHC 33.7 RDW Std Deviation 48.8 H RDW Coeff of Itzel 13.8 Plt Count 136 L MPV 10.4 Immature Gran % (Auto) 0.900 Neut % (Auto) 77.6 H Lymph % (Auto) 14.4 L [place] % (Auto) 5.8 Eos % (Auto) 0.9 Baso % (Auto) 0.4 Absolute Neuts (auto) 5.3 Absolute Lymphs (auto) 0.99 Nucleated RBC % 0 Sodium 128 L Potassium 3.8 Chloride 98 Carbon Dioxide 15.0 L Anion Gap 15 BUN 41 H Creatinine 1.98 H Estim Creat Clear Calc 51.75 Est GFR (MDRD) Non-Af 32 L BUN/Creatinine Ratio 20.7 H Glucose 533 H* Lactic Acid 2.2 H* Calcium 8.3 Phosphorus 3.0 Magnesium 2.2 Total Bilirubin 0.57 AST 19 ALT 26 Alkaline Phosphatase 183 H Total Protein 7.1 Albumin 3.3 L Globulin 3.7 Albumin/Globulin Ratio 0.9 b-Hydroxybutyric mmol/L 0.1 Urine Color Straw Urine Clarity Sl. Cloudy Urine pH 6.0 Ur Specific Banks 1.010 Urine Protein 30 H Urine Glucose (UA) 1000 H Urine Ketones Negative Urine Occult Blood 150 H Urine Nitrite Negative Urine Bilirubin Negative Urine Urobilinogen Normal Ur Leukocyte Esterase 100 H Urine RBC 5-10 SEEN Urine WBC 10-25 SEEN Ur Squamous Epith Cells 5-10 SEEN Urine Bacteria 3+ Urine Mucus 0 SEEN POC Glucose 459 H* 07/05/25 07/05/25 07/05/25 20:26 20:45 21:35 WBC RBC Hgb Hct MCV MCH MCHC RDW Std Deviation RDW Coeff of Itzel Plt Count MPV Immature Gran % (Auto) Neut % (Auto) Lymph % (Auto) [place] % (Auto) Eos % (Auto) Baso % (Auto) Absolute Neuts (auto) Absolute Lymphs (auto) Nucleated RBC % Sodium 130 L Potassium 3.6 Chloride 101 Carbon Dioxide 17.3 L Anion Gap 11 BUN Creatinine Estim Creat Clear Calc Est GFR (MDRD) Non-Af BUN/Creatinine Ratio Glucose Lactic Acid Calcium Phosphorus Magnesium Total Bilirubin AST ALT Alkaline Phosphatase Total Protein Albumin Globulin Albumin/Globulin Ratio b-Hydroxybutyric mmol/L Urine Color Urine Clarity Urine pH Ur Specific Banks Urine Protein Urine Glucose (UA) Urine Ketones Urine Occult Blood Urine Nitrite Urine Bilirubin Urine Urobilinogen Ur Leukocyte Esterase Urine RBC Urine WBC Ur Squamous Epith Cells Urine Bacteria Urine Mucus POC Glucose 369 H 321 H Since the beta-hydroxybutyrate is normal patient is not in DKA. She has sepsis and the cause of hermetabolic acidosis. She also has hyperglycemia. ABG Data ABG results: ABG 07/05/25 17:55 Specimen Type SHIRA Sample Site Not entered VBG pH 7.32 VBG pO2 77 H VBG HCO3 16 L VBG Total CO2 17 L VBG O2 Sat (Calc) 94 H VBG Base Excess -10 L POC Mix VBG pCO2 Pt Tmp 31.6 L O2 Delivery Device Not entered Radiography Chest X-Ray - ED: 1 View and Read by ED Physician (Normal cardiac silhouette. Heart is slightly enlarged. There is no infiltrate, pneumothorax or effusion. There is no acute abnormality of the osseous structures. There is independent reviewed interpreted by me) Diagnostic Testing: Clinical Impression(s) from Imaging Studies Chest X-Ray 07/05/25 18:27 IMPRESSION: Cardiomegaly with mild vascular congestion. No airspace consolidation or sizable pleural effusion. Reading Location: [facility] EK Initial EKG: Attestation: I personally reviewed and interpreted this EKG as follows: Interpretation: Sinus Rhythm (Rate is 75. Voltage is low. LA interval is138 ms. QS duration 94 ms per QT duration 384 ms. Smyer is normal. There is nonseptic changes which is artifact.) Treatment and Re-Evaluation :: Beta hydroxybutyrate was also added. Started on insulin drip. Suspect patient is in DKA due to her sepsis. Critical Care Time Critical Care Time: Yes Critical care time (excluding procedures): 30-74 minutes (34), Including time spent: (History, physical, documentation, review of prior records, interpretation laboratories alts and images and initiation of treatment for DKA and sepsis.), Discussing w/Patient &/or Family/Volumetric Weigher, Discussing w /Consultants and Arranging Admission or Transfer Discharge Plan Dx/Rx/DC Orders Clinical Impression: Sepsis, LETITIA (obstructive sleep apnea), Complicated urinary tract infection, Acidosis, lactic, Acutekidney injury, Acute anemia, Acute hypotension, Adult BMI 45.0-49.9 kg/sq m Disposition Disposition: Acute Care Hospital [facility] What to do if you have Problems For any increased pain, shortness of breath, bleeding, nausea or vomiting, chestpain, or any unexpected problems, contact your Primary Care Provider. Call [facility] ([phone]) or report tothe closest Emergency Room. Call 911 if necessary. 07/05/25 2224 Cosigner Signature (if applicable): CC: Dr. Ivette Grimes MD ~ Signed [facility]09-01-2025 Radiology Diagnostic study note [facility] Imaging Services [address] [place] [address] Chest PA and Lateral MR#: [id number] Acct: [id number] Name: TORI GRAY Rep #: [id number] : 1980 F 45 From: Sheng Hankins MD PCP: Dr. Ivette Grimes MD Status: REG E R Study:Chest PA and Lateral Date of Exam: 07/05/25 Exam# [id number] Ordering Dr: Min Pina MD PROCEDURE: CHEST PA AND LATERAL [...] consolidation or sizable pleural effusion. Reading Location: [id number] CC: Dr. Abhi Pina MD; Dr. Ivette Grimes MD ~ Decal Applier: Signed [facility]09-01-2025 Discharge summary Author Abhi Pina [facility] Note Date/Time July 05, 2025 10:24pm [facility] Medical Records Department [address] [place] [address] Emergency Department Summary 07/05/25 MR#: [id number] Acct: [id number] Name: TORI GRAY Rep #:[id number] : 1980 45 From: Abhi Pina MD PCP: Dr. Ivette Grimes MD Status:REG E R Location: ED HPI History of Present Illness Chief Complaint: Shortness of Breath Detail of Chief Complaint: Altered mental status, thirst, elevated blood sugar, shortness of breath, l Informant: patient and family (Daughter states she has received text messages that do not make sense.) Onset/Context/Timing Onset: Days (Saturday) Context: Sudden Onset Timing: Continuous and Waxes and wanes Quality: Altered mental status, decreased urine output, dark urine, thirst Location: Multiple Current Severity: Moderate Maximum Severity: Severe Worsened by: Unknown certain Relieved by: Nothing Associated Symptoms Associated Symptoms: Chills with subjective fever Narrative Narrative: Patient is a 45-year-old woman. 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 She presents because she not been feeling well. Daughter states she is been sending unusual and weird text that do not make sense. Subjective fever with chills. Thirst dry mouth. Complains of shortness of breath. Denies dyspnea on exertion, orthopnea or PND. Denies chest discomfort of any type. Does endorse nausea without vomiting. Said some intermittent diarrhea. She has not been on antibiotic in the past month. She reports decreased urine output and dark-colored urine. She has some mild discomfort in the suprapubic area describes itas pressure. She denies back or flank pain. She denies skin lesions. She states her sugars normally run 11/24/1929. They have been greater than 400 the past 12 hours. Prior similar symptoms: No Recent Illness/Hospitalization: No PFSH PFSH Medical History Impingement of left shoulder Diabetes Fatty liver [...] 11/10/24 History tablet (Nurtec ODT) headache semaglutide 2 mg/dose (8 mg/3 mL) 2 mg subcut QWEEK Unknown History subcutaneous pen injector (Ozempic) Allergy/AdvReac Type Severity Reaction Status Date / Time Corticosteroids Allergy Hives Verified 07/05/25 17:33 (Glucocorticoids) (steroids) lidocaine AdvReac Intermediate Hives Verified 07/05/25 17:33 Family History Father Diabetes Myocardial infarction Pancreatic cancer Mother Alcohol abuse Drug abuse Grandfather Diabetes Grandmother Lung cancer Grandmother Heart disease Triple bypass surgery Surgical History History of urethral stent (~2018) Hx laparoscopic cholecystectomy (~2005) H/O: (~2005) Social History household members: none Smoking Status: Never smoker alcohol intake: never substance use type: does not use caffeine: Yes Type: coffee what type of physical activity do you participate in: walking frequency: daily seatbelt use: always do you feel safe at home: Yes ROS ROS ED Constitutional Constitutional ED: Reports chills, fever(s) and subjective; Denies sweats Eyes Eyes: Denies blurry vision, change in vision or diplopia ENT ENT ED: Denies ear pain, rhinorrhea or sore throat Cardiovascular Cardiovascular: Denies chest pain, orthopnea, palpitations, paroxysmal nocturnaldyspnea or racing heartbeat Respiratory/Chest Respiratory/Chest: Reports dyspnea and dyspnea on exertion; Denies cough, orthopnea, paroxysmal nocturnal dyspnea or sputum Gastrointestinal Gastrointestinal: Reports diarrhea and nausea; Denies abdominal pain Genitourinary Genitourinary ED: Denies dysuria, hematuria or urinary frequency Musculoskeletal Musculoskeletal: Reports myalgias; Denies arthralgias, back pain or neck pain Integumentary Denies rash Neurologic Neurologic: Reports weakness; Denies headache(s) or paresthesias Endocrine Endocrinology: Denies cold intolerance or heat intolerance Hematologic/Lymphatic Hematologic/Lymphatic: Reports systems reviewed and no addt'l complaints, exceptas documented EXAM Physical Exam Const Vital Signs: 07/05/25 17:32 07/05/25 17:34 07/05/25 17:36 Temperature 98.6 F 98.6 F Temperature Source Oral Oral Pulse Rate 78 76 Respiratory Rate 18 21 H Respiratory Effort Normal Non-Labored Respiratory Depth Normal Respiratory Pattern Normal Blood Pressure 106/46 L 127/65 H Blood Pressure Mean 66 85 Pulse Ox 96 98 Oxygen Delivery Method Room Air Room Air Room Air 07/05/25 18:08 07/05/25 18:15 07/05/25 18:15 Temperature Temperature Source Pulse Rate 76 72 Respiratory Rate 20 H 24 H Respiratory Effort Respiratory Depth Respiratory Pattern Blood Pressure 118/61 118/61 Blood Pressure Mean 77 77 Pulse Ox 98 98 Oxygen Delivery Method 07/05/25 18:30 07/05/25 18:36 07/05/25 18:38 Temperature 99.7 F H Temperature Source Oral Pulse Rate 74 74 Respiratory Rate 24 H 24 H Respiratory Effort Respiratory Depth Respiratory Pattern Blood Pressure 83/61 L 114/55 L 114/55 L Blood Pressure Mean 67 74 71 Pulse Ox 97 96 98 Oxygen Delivery Method Room Air 07/05/25 18:45 07/05/25 19:00 07/05/25 19:00 Temperature 99.9 F H Temperature Source Oral Pulse Rate 72 76 71 Respiratory Rate 19 H 21 H 26 H Respiratory Effort Respiratory Depth Respiratory Pattern Blood Pressure 116/54 L 108/53 L 108/53 L Blood Pressure Mean 70 71 68 Pulse Ox 100 97 97 Oxygen Delivery Method Room Air 07/05/25 19:22 07/05/25 19:50 07/05/25 21:00 Temperature 99.9 F H 100 F H Temperature Source Oral Pulse Rate 71 73 72 Respiratory Rate 20 H 24 H 22 H Respiratory Effort Respiratory Depth Respiratory Pattern Blood Pressure 101/53 L 97/56 L 102/47 L Blood Pressure Mean 69 69 65 Pulse Ox 98 100 96 Oxygen Delivery Method Room Air Room Air 07/05/25 22:00 Temperature 97.9 F Temperature Source Oral Pulse Rate 77 Respiratory Rate 16 Respiratory Effort Respiratory Depth Respiratory Pattern Blood Pressure 95/77 Blood Pressure Mean 83 Pulse Ox 97 Oxygen Delivery Method Room Air Positive well nourished, well developed and obese Constitutional Narrative: Patient appears pale. She does not appear well. General Appearance ED: well developed Nutritional Appearance: obese HEENT Reports dry mucous membranes HEENT Narrative: Tongue is pierced. Ears are normal. Nares patent. Posterior pharynx is normal. Mouth ED: Yes dry mucous membranes Mouth: dry mucous membranes Eyes PERRL and EOMs intact bilaterally General Eye ED: Yes pale conjunctiva; Negative for scleral icterus Neck no lymphadenopathy, supple and no JVD Resp normal respiratory effort and clear to auscultation bilaterally Cardio regular rate, regular rhythm, S1 normal heart sound, S2 normal heart sound and no murmurs GI normal to inspection, nondistended, normoactive bowel sounds, non-distended and no masses; Negative for non-tender or hepatosplenomegaly Palpation: tender suprapubic Back/Spine no CVA tenderness Extremity normal to inspection General Extremety ED: Negative for edema or tenderness General Extremity: Negative for edema Neuro oriented x3, CN's II-XII intact bilaterally and no sensory deficits noted Neuro Narrative: Awake but not alert. Sensorium / Orientation: Negative for alert Psych Mood & Affect: depressed Skin Skin Narrative: Patient is flushed in the submental area and right and left cheek region. Thereis no evidence of cellulitis i.e. induration, warmth, fluctuance lymphangitis orlymphadenopathy. Sepsis Attestation Sepsis Alert: Yes Date exam was performed: 07/05/25 Time exam was performed: 20:00 Possible Source of Sepsis: Genitourinary Fluid Resuscitation Fluid resuscitation indicated?: Yes Fluid Resuscitation ordered: 30 ml/kg fluid bolus ordered MDM MDM MDM Narrative Medical decision making narrative: Patient with encephalopathy this could be due to metabolic or infectious. Will obtain appropriate blood work. Prior records reviewed and document in the HPI narrative. Lab Data Attestation: I reviewed the patient's lab results. Lab results narrative: White count is normal. Patient had a significant drop in her hemoglobin. She was question regarding black or maroon-colored stool she denies. She denies hematuria. Hemoglobin was 13 5 and hematocrit of 39.2 on June 05, 2025. Competence metabolic panel is remarkable for glucose of 593 with a CO2 of 15 andanion gap of 15. Sodium is 128 suspect this is pseudohyponatremia due to her hyperglycemia. Her creatinine is doubled. This would indicate endorgan dysfunction. Urine is consistent with infection. Urine and blood cultures wereobtained prior to starting patient on Rocephin. After reviewing vital signs andnoted that she had a drop in her blood pressure at approximately 2000 and additional 3 L of normal saline was ordered. Labs: Laboratory Results - last 24 hr 07/05/25 07/05/25 07/05/25 17:40 17:48 18:02 WBC 6.9 RBC 2.94 L Hgb 9.5 L Hct 28.2 L MCV 95.9 MCH 32.3 H MCHC 33.7 RDW Std Deviation 48.8 H RDW Coeff of Itzel 13.8 Plt Count 136 L MPV 10.4 Immature Gran % (Auto) 0.900 Neut % (Auto) 77.6 H Lymph % (Auto) 14.4 L [place] % (Auto) 5.8 Eos % (Auto) 0.9 Baso % (Auto) 0.4 Absolute Neuts (auto) 5.3 Absolute Lymphs (auto) 0.99 Nucleated RBC % 0 Sodium 128 L Potassium 3.8 Chloride 98 Carbon Dioxide 15.0 L Anion Gap 15 BUN 41 H Creatinine 1.98 H Estim Creat Clear Calc 51.75 Est GFR (MDRD) Non-Af 32 L BUN/Creatinine Ratio 20.7 H Glucose 533 H* Lactic Acid 2.2 H* Calcium 8.3 Phosphorus 3.0 Magnesium 2.2 Total Bilirubin 0.57 AST 19 ALT 26 Alkaline Phosphatase 183 H Total Protein 7.1 Albumin 3.3 L Globulin 3.7 Albumin/Globulin Ratio 0.9 b-Hydroxybutyric mmol/L 0.1 Urine Color Straw Urine Clarity Sl. Cloudy Urine pH 6.0 Ur Specific Banks 1.010 Urine Protein 30 H Urine Glucose (UA) 1000 H Urine Ketones Negative Urine Occult Blood 150 H Urine Nitrite Negative Urine Bilirubin Negative Urine Urobilinogen Normal Ur Leukocyte Esterase 100 H Urine RBC 5-10 SEEN Urine WBC 10-25 SEEN Ur Squamous Epith Cells 5-10 SEEN Urine Bacteria 3+ Urine Mucus 0 SEEN POC Glucose 459 H* 07/05/25 07/05/25 07/05/25 20:26 20:45 21:35 WBC RBC Hgb Hct MCV MCH MCHC RDW Std Deviation RDW Coeff of Itzel Plt Count MPV Immature Gran % (Auto) Neut % (Auto) Lymph % (Auto) [place] % (Auto) Eos % (Auto) Baso % (Auto) Absolute Neuts (auto) Absolute Lymphs (auto) Nucleated RBC % Sodium 130 L Potassium 3.6 Chloride 101 Carbon Dioxide 17.3 L Anion Gap 11 BUN Creatinine Estim Creat Clear Calc Est GFR (MDRD) Non-Af BUN/Creatinine Ratio Glucose Lactic Acid Calcium Phosphorus Magnesium Total Bilirubin AST ALT Alkaline Phosphatase Total Protein Albumin Globulin Albumin/Globulin Ratio b-Hydroxybutyric mmol/L Urine Color Urine Clarity Urine pH Ur Specific Banks Urine Protein Urine Glucose (UA) Urine Ketones Urine Occult Blood Urine Nitrite Urine Bilirubin Urine Urobilinogen Ur Leukocyte Esterase Urine RBC Urine WBC Ur Squamous Epith Cells Urine Bacteria Urine Mucus POC Glucose 369 H 321 H Since the beta-hydroxybutyrate is normal patient is not in DKA. She has sepsis and the cause of her metabolic acidosis. She also has hyperglycemia. ABG Data ABG results: ABG 07/05/25 17:55 Specimen Type SHIRA Sample Site Not entered VBG pH 7.32 VBG pO2 77 H VBG HCO3 16 L VBG Total CO2 17 L VBG O2 Sat (Calc) 94 H VBG Base Excess -10 L POC Mix VBG pCO2 Pt Tmp 31.6 L O2 Delivery Device Not entered Radiography Chest X-Ray - ED: 1 View and Read by ED Physician (Normal cardiac silhouette. Heart is slightly enlarged. There is no infiltrate, pneumothorax or effusion. There is no acute abnormality of the osseous structures. There is independent reviewed interpreted by me) Diagnostic Testing: Clinical Impression(s) from Imaging Studies Chest X-Ray 07/05/25 18:27 IMPRESSION: Cardiomegaly with mild vascular congestion. No airspace consolidation or sizable pleural effusion. Reading Location: [facility] EKG Initial EKG: Attestation: I personally reviewed and interpreted this EKG as follows: Interpretation: Sinus Rhythm (Rate is 75. Voltage is low. LA interval is138 ms. QS duration 94 ms per QT duration 384 ms. Smyer is normal. There is nonseptic changes which is artifact.) Treatment and Re-Evaluation :: Beta hydroxybutyrate was also added. Started on insulin drip. Suspect patient is in DKA due to her sepsis. Critical Care Time Critical Care Time: Yes Critical care time (excluding procedures): 30-74 minutes (34), Including time spent: (History, physical, documentation, review of prior records, interpretation laboratories alts and images and initiation of treatment for DKA and sepsis.), Discussing w/Patient &/or Family/Volumetric Weigher, Discussing w/Consultants and Arranging Admission or Transfer Discharge Plan Dx/Rx/DC Orders Clinical Impression: Sepsis, LETITIA (obstructive sleep apnea), Complicated urinary tract infection, Acidosis, lactic, Acute kidney injury, Acute anemia, Acute hypotension, Adult BMI 45.0- 49.9 kg/sq m Disposition Disposition: [facility] Care [facility] What to do if you have Problems For any increased pain, shortness of breath, bleeding, nausea or vomiting, chestpain, or any unexpected problems, contact your Primary Care Provider. Call [facility] ([phone]) or report to the closest Emergency Room. Call 911 if necessary. 07/05/252223 <Electronically signed by Abhi Pina MD> Cosigner Signature (if applicable): CC: Dr. Ivette Grimes MD ~ Signed [facility] Work Phone: 1(477) 553-654408-22-2025 [facility] [address] [place], [place] [id number] OFFICE VISIT Date of Service: 06/25/25 MR#: [id number] Acct: [id number] Name: TORI GRAY Rep #: [id number] : 1980 Provider: Dr. Killian Quiroga MD Age/Sex: 45/F Location: [facility] Status: Signed Intake Vital Signs 05/06/25 10:04 [...] decisions made by me, Dr. Kassie MD 06/25/25 0903. Part of today?s visit [...] the sling and follow-up in the office in2 weeks time. The patient understands no further [...] ax nerves, rad pulse 2+ 06/25/25 0935 n MD> Date _ Brett Quiroga MD Cosign Signature: Date (if applicable) CC: ~ [facility]08-22-2025 Progress note Author Brett Quiroga [facility] Note Date/Time June 25, 2025 9: 35am [facility] [address] [place] [address] [place] [id number] OFFICE VISIT Date of Service: 06/25/25 MR#: [id number] Acct: [id number] Name: TORI GRAY Rep #: [id number] : 1980 Provider: Dr. Killian Quiroga MD Age/Sex: 45/F Location: [facility] Status: Signed Intake Vital Signs 05/06/25 10:04 [...] Cosigner Signature: Date (if applicable) CC: ~ [facility] Work Phone: 1(247) 406-322708-20-2025 Discharge summary Author Brett Quiroga [facility] Note Date/Time June 23, 2025 8: 39am [facility] Medical Records Department [address] [place] [address] Instructions for Home/Discharge Instructions 06/23/25 0836 MR#: [id number] Acct: [id number] Name: TORI GRAY Rep #:[id number] : 1980 45 From: Brett Quiroga MD [...] Patient Instructions: After Shoulder Arthroscopy Print Language: Hong Konger Discharge Orders/Prescriptions Prescriptions: New oxycodone-acetaminophen [Endocet] 5-325 [...] CC: Dr. Ivette Grimes MD ~ Signed [facility] Work Phone: 1(655) 565-665608-20-2025 Consult note [facility] Medical Records Department [address] [place] [address] Pre-Anesthesia Evaluation 06/23/25 0739 MR#: [id number] Acct: [id number] Name: GRAYTORI KELLY Rep #:[id number] : 1980 45 From: Ankur ROJO PCP: Dr. Ivette Grimes MD Status:REG S DC Y Race: C Location: [facility] ASA Classification* ASA Classification ASA Classification: [...] 09:06/05/25 RBC 4.17 M/mm3 (4.2-5.4) L 06/05/25 09:27 06/05/25 Hgb 13.5 g/dL (12.0-15.0) 06/05/25 09:06/05/25 Hct [...] DECOMPRESSION DEBRIDMENT Anesthesia History Anesthesia History - occupational nurse: Anesthesia History - occupational nurse Hx Hospitalization No 06/10/25 09:08 Any Problems [...] take am of surgery PONV PONV - occupational nurse: PONV - occupational nurse Female Yes 06/10/25 09:08 HX of Motion [...] 06/23/25 06:40 Respiratory Assessment Respiratory Assessment - occupational nurse: Respiratory Tract Infection Hx - occupational nurse Hx Respiratory Tract Infection No 06/10/25 09:08 STOP Sleep Apnea STOP Sleep Apnea - occupational nurse: STOP Sleep Apnea - occupational nurse Hx Hypertension No: LISINOPRIL FOR LIVER 06/10/25 [...] Tobacco Use History Tobacco Use History - occupational nurse: Tobacco Use History - occupational nurse Tobacco Use Non-smoker 03/09/25 09:20 Smoking Status Never smoker 06/10/25 09:08 Hx Tobacco Use No 06/10/25 09:08 Years Smoking Packs Smoked per Day Smoking Cessation Date was within the last 15 years Hx Smoking Cessation Date Hx Smoking Cessation Counseling Hematologic Medial History Hematologic Hx - occupational nurse: 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 Ivette Grimes MD Status:REG S DC Y Race: C Location: [place] [address] ASA Classification* ASA Classification ASA Classification: 3 [...] 09:06/05/25 RBC 4.17 M/mm3 (4.2-5.4) L 06/05/25 09:27 06/05/25 Hgb 13.5 g/dL (12.0-15.0) 06/05/25 09:06/05/25 Hct 39.2 % (37-47) 06/05/25 09:06/05/25 Plt Count 192 K/mm3 (150-450) 06/05/25 09:27 [...] DECOMPRESSION DEBRIDMENT Anesthesia History Anesthesia History - occupational nurse: Anesthesia History - occupational nurse Hx Hospitalization No 06/10/25 09:08 Any Problems [...] take am of surgery PONV PONV - occupational nurse: PONV - occupational nurse Female Yes 06/10/25 09:08 HX of Motion [...] 06/23/25 06:40 Respiratory Assessment Respiratory Assessment - occupational nurse: Respiratory Tract Infection Hx - occupational nurse Hx Respiratory Tract Infection No 06/10/25 09:08 STOP Sleep Apnea STOP Sleep Apnea - occupational nurse: STOP Sleep Apnea - occupational nurse Hx Hypertension No: LISINOPRIL FOR LIVER 06/10/25 [...] Tobacco Use History Tobacco Use History - occupational nurse: Tobacco Use History - occupational nurse Tobacco Use Non-smoker 03/09/25 09:20 Smoking Status Never smoker 06/10/25 09:08 Hx Tobacco Use No 06/10/25 09:08 Years Smoking Packs Smoked per Day Smoking Cessation Date was within the last 15 years Hx Smoking Cessation Date Hx Smoking Cessation Counseling Hematologic Medial History Hematologic Hx - occupational nurse: 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 Hx of Blood Transfusion No 06/10/25 09:08 [...] confused, unrespo /Reproduction History /Reproductive History - occupational nurse: /Reproductive Hx- occupational nurse Hx Now No 06/10/25 09:08 Gestational Age [...] CRNA Cosigner Signature: Date CC: ~ Signed [facility] Work Phone: 1(526) 474-293908-20-2025 History and physical note Author Brett Quiroga [facility] Note Date/Time June 23, 2025 7: 14am [facility] Medical Records Department [address] [place] [address] History & Physical Exam 06/23/25 0712 MR#: [id number] Acct: [id number] Name: TORI GRAY Rep #:[id number] : 1980 45 From: Brett Quiroga MD PCP: Dr. Ivette Grimes MD Status:REG S DC Location: [place] [address] HPI - General HPI Narrative TORI GRAY, is a 45 F who presents for left shoulder arthroscopy, subacromial decompression, debridement. no change to h and p. ok to proceed. rab, post op instructions, narcotic counselling. possible licodaine allergy, butafter discussion with anesthesia, the patient and the anesthesia provider have decided to proceed with a block. left shoulder marked. ok to proceed. MR#: [id number] Acct: [id number] Name: TORI GRAY Rep #: [id number] : 1980 Provider: Dr. Brett Quiroga MD Age/Sex: 44/F Location[place] [facility] [place] Status: Signed Intake Vital Signs 03/22/2509:08 05/06/2510:04 [...] mcg (0.03 2 spray intranasal BID allergies 08/23/ 0 01/26 History %) nasal spray albuterol [...] by me, Dr. Brett Quiroga MD 05/06/25 6514. Part of today?s visit was documented by [ ], acting as scribe. TORI GRAY is a 44 year old F here today for follow-up left shoulder MRI. Doing PT with [facility]. getting worse. cant do injections. seems to be getting worse, with ADLs as well. worse with lifting. lat and anterior pain. 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 Supplemental Info [facility] Imaging Services [address], [place] [id number] Upper Ext Joint Only(Routine) MR#: [id number] Acct: [id number] Name: TORI GRAY Rep #: [id number] : 1980 F 44 From: Salazar Tyson MD PCP: Dr. Ivette Grimes MD Status: REG CLI Study: Upper Ext Joint Only(Routine) Date of Exam: 04/17/25 Exam# [id number] Ordering Dr: Brett Quiroga MD PROCEDURE: UPPER [...] subacromial subdeltoid bursa, with bursitis. Reading Location: [facility] Olson independently reviewed the imaging. Concur with [...] blood flow before exercises. 4. Anti-Inflammatory Medications: Wndz-ypl-tdeacyz medications like ibuprofen or naproxen can help [...] radial pulse. strength FE 4+, ER 5/5. [facility] Medical History Diabetes Fatty liver Gastric [...] Quiroga MD; Dr. Ivette Grimes MD~ Signed [facility] Work Phone: 1(401) 681-206908-20-2025 Consult note [facility] Medical Records Department [address] [place] [address] Anesthesia Postop Eval I 06/23/25 0857 MR#: [id number] Acct: [id number] Name: TORI GRAY Rep #:[id number] : 1980 45 From: Ankur ROJO PCP: Dr. 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 Ivette Grimes MD ~ Signed [facility]08-20-2025 Procedure note [facility] Medical Records Department [address] [place] [address] Operative Report 06/23/25 0831 MR#: [id number] Acct: [id number] Name: TORI GRAY Rep #:[id number] : 1980 45 From: Brett Quiroga MD PCP: Dr. Ivette Grimes MD Status:REG S DC Location: [place] [address] 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 wrapper sorter: Yes [employer] Administrator: jamila Tasks completed by biology laboratory assistant: Retracting Additional assistant merchandise manager?: No Type of Anesthesia: Block,Regional and General [...] home according to day surgery criteria. CPT 49386, 85594 Surgical Findings: As above Complications Complications: No Admit VTE Documentation VTE Present on Admission: No VTE Mechan Device Prophylaxis: SCD's VTE Pharm Prophylaxis ordered?: No Reason prophylaxis not ordered: Treatment Not Indicated 06/23/25 0836 Cosigner Signature (if applicable): CC: Dr. Brett Quiroga MD; Dr. Ivette Grimes MD~ Signed [facility]08-20-2025 History and physical note [facility] Medical Records Department [address] [place] [address] History & Physical Exam 06/23/25 0712 MR#: [id number] Acct: [id number] Name: TORI GRAY Rep #:[id number] : 1980 45 From: Brett Quiroga MD PCP: Dr. Ivette Grimes MD Status:REG S DC Location: [place] [address]-1 HPI - General HPI Narrative TORI GRAY, is a 45 F who presents for left shoulder arthroscopy, subacromial decompression, debridement. no change to h and p. ok to proceed. rab, post op instructions, narcotic counselling. possible licodaine allergy, butafter discussion with anesthesia, the patient and the anesthesia provider have decided to proceed with a block. left shoulder marked. ok to proceed. MR#: [id number] Acct: [id number] Name: TORI GRAY Rep #: [id number] : 1980 Provider: Dr. Brett Quiroga MD [...] PO DAILY PRN migraine 02/04/2401/26 [facility] headache semaglutide 0.25 mg or 0.5 [...] made by me, Dr. Kassie MD 05/06/25 0921. 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 Supplemental Info [facility] Imaging Services [address] [place] [address] Upper Ext Joint Only(Routine) MR#: [id number] Acct: [id number] Name: TORI GRAY Rep #: [id number] : 1980 F 44 From: Salazar Tyson MD PCP: Dr. Ivette Grimes MD Status: REG CLI Study: Upper Ext Joint Only(Routine) Date of Exam: 04/17/25 Exam# [id number] Ordering Dr: Brett Quiroga MD PROCEDURE: UPPER [...] subacromial subdeltoid bursa, with bursitis. Reading [facility] I independently reviewed the imaging. Concur with [...] blood flow before exercises. 4. Anti-Inflammatory Medications: Xtbe-egh-iroabyt medications like ibuprofen or naproxen can help [...] radial pulse. strength FE 4+, ER 5/5. [facility] Medical History Diabetes Fatty liver Gastric [...] 06/23/25 06:30: Urine Test Negative 06/23/25 0714 Cosigner Signature (if applicable): CC: Dr. Brett Quiroga MD; Dr. Ivette Grimes MD~ Signed [facility]08-20-2025 [facility]08-14-2025 Progress [facility] [address] [place] [address] OFFICE VISIT Date of Service: 06/17/25 MR#: [id number] Acct: [id number] Name: TORI GRAY Rep #: [id number] : 1980 Provider: CONCEPCIÓN Rehman Age/Sex: 45/F Location[place] [facility] Status: Signed Intake Vital Signs 05/06/25 [...] History mg/3 mL) subcutaneous pen injector (Ozempic) [facility] Medical History Diabetes Fatty liver Gastric [...] CPT Codes Procedures - Manipulation: 3-4 regions (12137) Procedures - Traction, Mechanical: Yes (43517) 06/17/25 1005 .C.> Date _ Bibiana Rehman D.C. Cosigner Signature: Date (if applicable) CC: ~ [facility]08-14-2025 Progress note Author Bibiana Rehman [facility] Note Date/Time June 17, 2025 10 :05am [facility] [address] [place] [address] OFFICE VISIT Date of Service: 06/17/25 MR#: [id number] Acct: [id number] Name: TORI GRAY Rep #: [id number] : 1980 Provider: CONCEPCIÓN Rehman Age/Sex: 45/F Location: [facility] [place] Status: Signed Intake Vital Signs 05/06/25 10:04 [...] History mg/3 mL) subcutaneous pen injector (Ozempic) [facility] Medical History Diabetes Fatty liver Gastric [...] CPT Codes Procedures - Manipulation: 3-4 regions (64315) Procedures - Traction, Mechanical: Yes (71522) 06/17/25 1005 <Electronically signed by Bibiana Aguilar> Date _ Bibiana Rehman D.C. Cosigner Signature: Date (if applicable) CC: ~ [facility] Work Phone: 1(577) 412-560308-07-2025 Telephone encounter Note* Telephone Encounter - Little Murphy MA - 06/10/2025 2:17 PM EDT LDL Direct scanned to chart [facility]08-07-2025 Miscellaneous Notes* Telephone Encounter - Little Murphy MA - 06/10/2025 2:17 PM EDT [...] - 06/09/2025 10:20 AM EDT HgbA1C from [facility] 7.4 [facility] Hospital Discharge instructionsAmbulatory Orders* 12 Lead EKG [[facility]] Time Frame: 06/10/25, Location: None Selected [facility] Work Phone: 1(918) 851-288508-06-2025 Telephone encounter Note* Telephone Encounter - Nirmala Storey LPN - 06/09/2025 12:53 PM EDT [employer] message sent to the patient. [facility]08-06-2025 Telephone encounter Note* Telephone Encounter - Ivette Grimes MD - 06/09/2025 10:48 AM EDT Lets increase the ozempic to 2 mg a day. Call sugars in two weeks. Watch the diet. [facility]08-06-2025 Telephone encounter Note* Telephone Encounter - Nirmala Storey LPN - 06/09/2025 10:20 AM EDT HgbA1C from [facility] 7.4 [facility]08-04-2025 NoteHNO ID: [id number] Author: IVETTE GRIMES MD Service: ? Author [...] for June [address] Quiroga at [facility]. - Follow-up appointment with Dr. Camacho [...] 1 tablet by mouth once daily. Ipratropium [place] (ATROVENT) 21 mcg (0.03 %) nasal spray [...] 1 Each by INTRAUTERINE route as directed. Pojaawgm-Qw-Oeo-Fe-FA tab Take 1 tablet by mouth once [...] Age of Onset Alcohol/Drug Mother Heart Father SD Cancer Father PANCREATIC CANCER Diabetes Father Coronary Artery Disease Father Anxiety disorder Sister Depression Sister Depression Brother Cancer Maternal Grandmother LUNG CANCER Diabetes Maternal Grandfather Heart Paternal Grandmother TRIPLE BYPASS SURGERY S (more content not included)...[facility]08-04-2025 History of Present illness Narrative* Ivette [...] for June [address] Quiroga at [facility]. - Follow-up appointment with Dr. Camacho [...] 1 tablet by mouth once daily. Ipratropium [place] (ATROVENT) 21 mcg (0.03 %) nasal spray [...] 1 Each by INTRAUTERINE route as directed. Dljcljqf-Sj-Nxv-Fe-FA tab Take 1 tablet by mouth once [...] Age of Onset Alcohol/Drug Mother Heart Father SD Cancer Father PANCREATIC CANCER Diabetes Father Coronary [...] microalbuminuria, with long-term current use of insulin ([facility]) (E11.29) - Fasting glucose remains elevated despite [...] Obesity, Class III, BMI 40-49.9 (morbid obesity) ([facility]) (E66.813) - Patient is physically active and maintains a balanced diet. 10. Headache, unspecified headache type (R51.9) - Migraines well-controlled; continues Topamax and gabapentin (reduced to once nightly). - Appointment scheduled for August 04 with Fatuma Cervantes to discuss resuming Botox treatment. 11. Encounter for screening mammogram for breast cancer (Z12.31) - Order for screening mammogram to be sent to [facility]. (See patient after visit summary for additional instructions to patient) Ivette Grimes MD Recording using [employer] software for draft documentation of the visit was discussed with the patient/authorized screening representative; all questions welcomed and answered. Patient/authorized screening representative agreed to proceed documented [facility]New[facility]08-04-2025 Instructions* Patient Instructions* Ivette Grimes MD [...] with Dr. Quiroga on June 23 at [facility]. - Keep your neurology appointment on [...] any new concerns arise. documented [facility]New[facility]06-[facility]-2025 Evaluation note* Diagnosis Onset Date Resolution Status Admit Date Segmental and somatic dysfunction of cervical region acute April 21, 2025 9:49am Segmental and somatic dysfunction of lumbar region acute Apr 9:49am Segmental and somatic dysfunction of pelvic region acute Apr 9:49am Segmental and somatic dysfunction of thoracic region acute April 21, 2025 9:49am Disc displacement, lumbar chronic April 21, 2025 9:49am Left shoulder pain inactive May 062024 10:02am Segmental and somatic dysfunction of cervical region acute June 01, 2025 10:30am Segmental and somatic dysfunction of lumbar region acute May 10:30am Segmental and somatic dysfunction of pelvic region acute May 10:30am Segmental and somatic dysfunction of thoracic region acute June 01, 2025 10:30am Disc displacement, lumbar chronic June 01, 2025 10:30am Segmental and somatic dysfunction of cervical region acute June 17 9:27am Segmental and somatic dysfunction of lumbar region acute Jun 9:27am Segmental and somatic dysfunction of pelvic region acute Jun 9:27am Segmental and somatic dysfunction of thoracic region acute June 17 9:27am Disc displacement, lumbar chronic June 17, 2025 9:27am Impingement of left shoulder acute June 23, 2025 6:20am Impingement of left shoulder acute June 25, 2025 9:12am Complicated urinary tract infection resolved July 05 9:46pm Sepsis resolved July 05, 2025 9:46pm Impingement of left shoulder acute July 09, 2025 9:21am [facility] Work Phone: 1(584) 688-924506-18-2025 Evaluation note* Diagnosis Onset Date Resolution Status Admit Date Segmental and somatic dysfunction of cervical region acute April 21, 2025 9:49am Segmental and somatic dysfunction of lumbar region acute Apr 9:49am Segmental and somatic dysfunction of pelvic region acute Apr 9:49am Segmental and somatic dysfunction of thoracic region acute April 21, 2025 9:49am Disc displacement, lumbar chronic April 21, 2025 9:49am Left shoulder pain inactive May 062024 10:02am Segmental and somatic dysfunction of cervical region acute June 01, 2025 10:30am Segmental and somatic dysfunction of lumbar region acute May 10:30am Segmental and somatic dysfunction of pelvic region acute May 10:30am Segmental and somatic dysfunction of thoracic region acute June 01, 2025 10:30am Disc displacement, lumbar chronic June 01, 2025 10:30am Segmental and somatic dysfunction of cervical region acute June 17 9:27am Segmental and somatic dysfunction of lumbar region acute Jun 9:27am Segmental and somatic dysfunction of pelvic region acute Jun 9:27am Segmental and somatic dysfunction of thoracic region acute June 17 9:27am Disc displacement, lumbar chronic June 17, 2025 9:27am Impingement of left shoulder acute June 23, 2025 6:20am Impingement of left shoulder acute June 25, 2025 9:12am Complicated urinary tract infection resolved July 05 9:46pm Sepsis resolved July 05, 2025 9:46pm Impingement of left shoulder acute July 09, 2025 9:21am Impingement of left shoulder acute August 05, 2025 9:12am [facility] Work Phone: [phone]) [phone] Telephone encounter Note* Telephone Encounter - Ivette Grimes MD - 04/07/2025 3:34 PM EDT Requests refill. [facility]06-04-2025 Miscellaneous Notes* Telephone Encounter - Ivette Grimes MD - 04/07/2025 3:34 PM EDT Requests refill. documented in [facility] encounterNew[facility]05-29-2025 Telephone encounter Note * Telephone Encounter - Nakia Caraballo RN - 04/01/2025 12:45 PM EDT Botox approved until 11/03/25. Patient and scheduling made aware. She is a patient of Fatuma's butdue to her being out on maternity leave, patient will need scheduled with another FÉLIX. Saw Amanda on03/09/25. Latonia Caraballo RN, TUNDEN [facility] Work Phone: 1([phone]) 117-517805-29-2025 Miscellaneous Notes* Telephone Encounter - Nakia Caraballo RN - 04/01/2025 12:45 PM EDT Botox approved until 11/03/25. Patient and scheduling made aware. She is a patient of Fatuma's butdue to her being out on maternity leave, patient will need scheduled with another FÉLIX. Saw Amanda on03/09/25. Latonia Caraballo RN, BSN documented in this encounterNewark Hospital05-19-2025 Evaluation note* Diagnosis Onset Date Resolution Status Admit Date Left shoulder pain inactive March 222024 8:58am Back pain acute March 22, 2025 9:33am Segmental and somatic dysfunction of cervical region acute March 22, 2025 9 :33am Segmental and somatic dysfunction of lumbar region acute March 22, 2025 9:33am Segmental and somatic dysfunction of pelvic region acute March 22, 2025 9:33am Segmental and somatic dysfunction of thoracic region acute March 22, 2025 9 :33am Segmental and somatic dysfunction of cervical region acute April 05, 2025 1 0:22am Segmental and somatic dysfunction of lumbar region acute Apr 10:22am Segmental and somatic dysfunction of pelvic region acute Apr 10:22am Segmental and somatic dysfunction of thoracic region acute April 05, 2025 1 0:22am Disc displacement, lumbar chronic April 05, 2025 10:22am Segmental and somatic dysfunction of cervical region acute April 21, 2025 9:49am Segmental and somatic dysfunction of lumbar region acute Apr 9:49am Segmental and somatic dysfunction of pelvic region acute Apr 9:49am Segmental and somatic dysfunction of thoracic region acute April 21, 2025 9:49am Disc displacement, lumbar chronic April 21, 2025 9:49am Left shoulder pain inactive May 062024 10:02am Segmental and somatic dysfunction of cervical region acute June 01, 2025 10:30am Segmental and somatic dysfunction of lumbar region acute May 10:30am Segmental and somatic dysfunction of pelvic region acute May 10:30am Segmental and somatic dysfunction of thoracic region acute June 01, 2025 10:30am Disc displacement, lumbar chronic June 01, 2025 10:30am Segmental and somatic dysfunction of cervical region acute June 17 9:27am Segmental and somatic dysfunction of lumbar region acute Jun 9:27am Segmental and somatic dysfunction of pelvic region acute Jun 9:27am Segmental and somatic dysfunction of thoracic region acute June 17 9:27am Disc displacement, lumbar chronic June 17, 2025 9:27am Impingement of left shoulder acute June 23, 2025 6:20am Impingement of left shoulder acute June 25, 2025 9:12am Complicated urinary tract infection acute July 05, 2 025 9:46pm Sepsis acute July 05, 2025 9:46pm Impingement of left shoulder acute July 09, 2025 9:21am [facility] Work Phone: 1(742) 503-683105-16-2025 Telephone encounter Note* Telephone Encounter - Nakia Caraballo RN - 03/19/2025 3:14 PM EDT Botox referral sent to pharmacy as patient would like to restart botox. Last botox 09/03/24. Latonia Caraballo RN, BSN [facility] Work Phone: 1([phone]) 110-507205-16-2025 Miscellaneous Notes* Telephone Encounter - Nakia Caraballo RN - 03/19/2025 3:14 PM EDT Botox referral sent to pharmacy as patient would like to restart botox. Last botox 09/03/24. Latonia Caraballo RN, BSN documented in this encounterNewark Hospital05-09-2025 Radiology Diagnostic study note [facility] Imaging Services [address] [place], [place] [address] Shoulder min 2 Views MR#: [id number] Acct: [id number] Name: TORI GRAY Rep #: [id number] : 1980 F 44 From: Tameka Newsome MD PCP: Dr. Ivette Grimes MD Status: REG C EVER Study:Shoulder min 2 Views Date of Exam: 03/11/25 Exam# [id number] Ordering Dr: Brett Quiroga MD PROCEDURE: SHOULDER [...] Quiroga MD; Dr. Ivette Grimes MD ~ [employer]al Applier: Signed [facility]05-06-2025 Evaluation note* Diagnosis Onset Date Resolution Status Admit Date Segmental and somatic dysfunction of cervical region acute [facility] 2024 9:17am Segmental and somatic dysfunction of lumbar region acute March 09, 2025 9:17am Segmental and somatic dysfunction of pelvic region acute March 09, 2025 9:17am Segmental and somatic dysfunction of thoracic region acute [facility] 2024 9:17am Disc displacement, lumbar chronic March 09, 2025 9:17am Left shoulder pain inactive March 222024 8:58am Back pain acute March 22, 2025 9:33am Segmental and somatic dysfunction of cervical region acute [facility] 2024 9:33am Segmental and somatic dysfunction of lumbar region acute March 22, 2025 9:33am Segmental and somatic dysfunction of pelvic region acute March 22, 2025 9:33am Segmental and somatic dysfunction of thoracic region acute [facility] 2024 9:33am Segmental and somatic dysfunction of cervical region acute J counts include [facility] 2024 10:22am Segmental and somatic dysfunction of [...] and somatic dysfunction of pelvic region acute Aug ust 2024 9:27am Segmental and somatic dysfunction of thoracic region acute A ugust 2024 9:27am Disc displacement, lumbar chronic June 17, 2025 9:27am [facility] [employer] Work Phone: 1([phone]) 173-414505-06-2025 Evaluation note* Diagnosis Onset Date Resolution Status [...] and somatic dysfunction of cervical region acute [facility] 2024 9:33am Segmental and somatic dysfunction [...] dysfunction of lumbar region acute Noah e 5 9:49am Segmental and somatic dysfunction of pelvic [...] left shoulder acute June 23, 2025 6:20am [facility] Work Phone: 1([phone]) 416-693905-06-2025 Evaluation note* Diagnosis Onset Date Resolution Status Admit Date Segmental and somatic dysfunction of cervical region acute [facility] 2024 9:17am Segmental and somatic dysfunction of lumbar region acute March 09, 2025 9:17am Segmental and somatic dysfunction of pelvic region acute March 09, 2025 9:17am Segmental and somatic dysfunction of thoracic region acute [facility] 2024 9:17am Disc displacement, lumbar chronic March 09, 2025 9:17am Left shoulder pain inactive March 222024 8:58am Back pain acute March 22, 2025 9:33am Segmental and somatic dysfunction of cervical region acute [facility] 2024 9:33am Segmental and somatic dysfunction of lumbar region acute March 22, 2025 9:33am Segmental and somatic dysfunction of pelvic region acute March 22, 2025 9:33am Segmental and somatic dysfunction of thoracic region acute [facility] 2024 9:33am Segmental and somatic dysfunction [...] left shoulder acute June 25, 2025 9:12am [facility] Work Phone: 1(486) 352-824705-06-2025 Evaluation note* Diagnosis Onset Date Resolution Status [...] somatic dysfunction of cervical region acute March 22, 2025 9 :33am Segmental and somatic dysfunction of lumbar region acute March 22, 2025 9:33am Segmental and somatic dysfunction of pelvic region acute March 22, 2025 9:33am Segmental and somatic dysfunction of thoracic region acute March 22, 2025 9 :33am Segmental and somatic dysfunction of cervical region acute April 05, 2025 1 0:22am Segmental and somatic dysfunction of lumbar region acute Apr 10:22am Segmental and somatic dysfunction of pelvic region acute Apr 10:22am Segmental and somatic dysfunction of thoracic region acute April 05, 2025 1 0:22am Disc displacement, lumbar chronic April 05, 2025 10:22am Segmental and somatic dysfunction of cervical region acute April 21, 2025 9:49am Segmental and somatic dysfunction of lumbar region acute Apr 9:49am Segmental and somatic dysfunction of pelvic region acute Apr 9:49am Segmental and somatic dysfunction of thoracic region acute April 21, 2025 9:49am Disc displacement, lumbar chronic April 21, 2025 9:49am Left shoulder pain inactive May 062024 10:02am Segmental and somatic dysfunction of cervical region acute June 01, 2025 10:30am Segmental and somatic dysfunction of lumbar region acute May 10:30am Segmental and somatic dysfunction of pelvic region acute May 10:30am Segmental and somatic dysfunction of thoracic region acute June 01, 2025 10:30am Disc displacement, lumbar chronic June 01, 2025 10:30am Segmental and somatic dysfunction of cervical region acute June 17 9:27am Segmental and somatic dysfunction of lumbar region acute Jun 9:27am Segmental and somatic dysfunction of pelvic region acute Jun 9:27am Segmental and somatic dysfunction of thoracic region acute June 17 9:27am Disc displacement, lumbar chronic June 17, 2025 9:27am Impingement of left shoulder acute June 23, 2025 6:20am Impingement of left shoulder acute June 25, 2025 9:12am Complicated urinary tract infection acute July 05 025 9:46pm Sepsis acute July 05, 2025 9:46pm [facility] Work Phone: 1(269) 131-537205-06-2025 History of Present illness Narrative* Amanda Arteaga PA-C - 03/09/2025 7:25 AM EDT Images from the original note were not included. [facility] General Neurology New Patient Evaluation This [...] visit. Either the patient or their legal screening representative has been informed of the risks and benefits of -- and alternatives to -- treatment through a remote evaluation andconsents to proceed with the evaluation remotely. Confirmed verbally that the patient currently located in the [facility].Yes Confirmed verbally that the patient consents to being seen virtually today.Yes Confirmed verbally that the patient consents to being seen by a physician assistant merchandise manager.Yes CHIEF COMPLAINT: Botox for migraines Tori Gray [...] 2. [facility] sustained [facility] and head injury [...] 1 tablet by mouth once daily. Ipratropium [place] (ATROVENT) 21 mcg (0.03 %) nasal spray [...] 1 Each by INTRAUTERINE route as directed. [place]-3 Fatty Acids (FISH OIL) 500 mg cap Take 1 capsule by mouth once daily. blood sugar diagnostic (BLOOD GLUCOSE TEST) test strip Test blood sugar(s) 1 times daily. Dx: Type 2 DM - Controlled E11.9 Insulin: Yes Lancets lancets Test blood sugar(s) 1 times daily. Dx: Type 2 DM - Controlled E11.9 Insulin: No Usrnokmn-Pb-Mdx-Fe-FA tab Take 1 tablet by mouth once [...] which included preparing to see the patient, zcic-lo-ghmc patient care, completing clinical documentation, obtaining and/or [...] (Sleep study not recommended) documented in [facility]New[facility]-2025 NoteHNO ID: [id number] Author: AMANDA ARTEAGA PA-C Service: ? Author Type: Physician Halal Butcher Type: Progress Notes Filed: 03/10/2025 07:59 Note Text: [facility] for General Neurology New Patient Evaluation [...] visit. Either the patient or their legal screening representative has been informed of the risks and benefits of -- and alternatives to -- treatment through a remote evaluation and consents to proceed with the evaluation remotely. Confirmed verbally that the patient currently located in the [facility].Yes Confirmed verbally that the patient consents to being seen virtually today.Yes Confirmed verbally that the patient consents to being seen by a physician assistant merchandise manager.Yes CHIEF COMPLAINT: Botox for migraines Tori Gray [...] 2. Gets botox for migraines with [facility]. Patient sustained fall and head injury [...] time -Mobic 15 a (more content not included)...[facility]05-01-2025 Telephone encounter Note* Telephone Encounter - Beata Pitts LPN - 03/04/2025 2:41 PM EDT Tried contacting patient to confirm that she just wants to discuss botox rather than get injectionsfor her upcoming appt as it's a virtual visit, per [place]. Beata Pitts LPN March 04, 2025 2:42 PM [facility]05-01-2025 Miscellaneous Notes* Telephone Encounter - Beata Pitts LPN - 03/04/2025 2:41 PM EDT Tried contacting patient to confirm that she just wants to discuss botox rather than get injectionsfor her upcoming appt as it's a virtual visit, per [place]. Beata Pitts LPN March 04, 2025 2:42 PM documented in this encounterNewark Hospital04-29-2025 History of Present illness Narrative* Ivette [...] visit. Either the patient or their legal screening representative has been informed of the risks [...] specialize in shoulders. Seen at optometry at [facility] for dilated vision check on February 04. [...] 1 tablet by mouth once daily. Ipratropium [place] (ATROVENT) 21 mcg (0.03 %) nasal spray [...] 1 Each by INTRAUTERINE route as directed. [place]-3 Fatty Acids (FISH OIL) 500 mg cap Take 1 capsule by mouth once daily. blood sugar diagnostic (BLOOD GLUCOSE TEST) test strip Test blood sugar(s) 1 times daily. Dx: Type 2 DM - Controlled E11.9 Insulin: Yes Lancets lancets Test blood sugar(s) 1 times daily. Dx: Type 2 DM - Controlled E11.9 Insulin: No Xigbbjza-Af-Qxu-Fe-FA tab Take 1 tablet by mouth once [...] Age of Onset Alcohol/Drug Mother Heart Father SD Cancer Father PANCREATIC CANCER Diabetes Father Coronary [...] ORTHOPAEDICS Ivette Grimes MD documented in this encounterNewark Hospital04-29-2025 NoteHNO ID: [id number] Author: IVETTE GRIMES MD Service: ? Author [...] visit. Either the patient or their legal screening representative has been informed of the risks [...] specialize in shoulders. Seen at optometry at [facility] for dilated vision check on February 04. [...] 1 tablet by mouth once daily. Ipratropium [place] (ATROVENT) 21 mcg (0.03 %) nasal spray [...] 1 Each by INTRAUTERINE route as directed. [place]-3 Fatty Acids (FISH OIL) 500 mg cap Take 1 capsule by mouth once daily. blood sugar diagnostic (BLOOD GLUCOSE TEST) test strip Test blood sugar(s) 1 times daily. Dx: Type 2 DM - Controlled E11.9 Insulin: Yes Lancets lancets Test blood sugar(s) 1 times daily. Dx: Type 2 DM - Controlled E11.9 Insulin: No Vfkvyzqy-Gu-Inc-Fe-FA tab Take 1 tablet by mouth once [...] Age of Onset Alcohol/Drug Mother Heart Father SD Cancer Father PANCREATIC CANCER Diabetes Father Coronary Artery Disease Father Anxiety disorder Sister Depression Sister Depression Brother Cancer Maternal Grandmother LUNG CANCER Diabetes Maternal Grandfather Heart Paternal Grandmother TRIPLE BYPASS SURGERY Social History Tobacco Use Smoking status: Never Smokeless tobacco: Never Vaping Use Vaping status: Never Used Substance Use Topics Alcohol use (more content not included)...[facility]04-03-2025 Evaluation note* Diagnosis Onset Date Resolution [...] displacement, lumbar chronic March 09, 2025 9:17am [facility] Work Phone: 1(750) 657-980804-03-2025 Evaluation note* Diagnosis Onset Date Resolution Status [...] Left shoulder pain inactive March 222024 8:58am [facility] Work Phone: 1(644) 566-836704-03-2025 Evaluation note* Diagnosis Onset Date Resolution Status [...] and somatic dysfunction of cervical region acute [facility] 2024 9:33am Segmental and somatic dysfunction of lumbar region acute March 22, 2025 9:33am Segmental and somatic dysfunction of pelvic region acute March 22, 2025 9:33am Segmental and somatic dysfunction of thoracic region acute [facility] 2024 9:33am [employer] Work Phone: 1(882) 465-255404-03-2025 Evaluation note* Diagnosis Onset Date Resolution Status [...] and somatic dysfunction of cervical region acute [facility] 2024 9:17am Segmental and somatic dysfunction of lumbar region acute March 09, 2025 9:17am Segmental and somatic dysfunction of pelvic region acute March 09, 2025 9:17am Segmental and somatic dysfunction of thoracic region acute [facility] 2024 9:17am Disc displacement, lumbar chronic March 09, 2025 9:17am Left shoulder pain inactive March 222024 8:58am Back pain acute March 22, 2025 9:33am Segmental and somatic dysfunction of cervical region acute [facility] 2024 9:33am Segmental and somatic dysfunction of lumbar region acute March 22, 2025 9:33am Segmental and somatic dysfunction of pelvic region acute March 22, 2025 9:33am Segmental and somatic dysfunction of thoracic region acute [facility] 2024 9:33am Segmental and somatic dysfunction [...] region suspected April 05, 2025 1 0:22am [facility] Work Phone: 1(750) 224-771704-03-2025 Evaluation note* Diagnosis Onset Date Resolution Status [...] displacement, lumbar chronic April 21, 2025 9:49am [facility] Work Phone: 1(649) 730-771904-03-2025 Evaluation note* Diagnosis Onset Date Resolution Status [...] and somatic dysfunction of thoracic region acute [facility] 2024 9:33am Segmental and somatic dysfunction [...] Left shoulder pain inactive May 062024 10:02am [facility] Work Phone: 1(537) 286-440304-03-2025 Evaluation note* Diagnosis Onset Date Resolution Status [...] and somatic dysfunction of thoracic region acute [facility] 2024 9:33am Segmental and somatic dysfunction [...] displacement, lumbar chronic June 01, 2025 10:30am [facility] [employer] Work Phone: 1(303) 314-283604-02-2025 Telephone encounter Note* Telephone Encounter - Evon [...] her know when it is ready for order picker. [facility]04-02-[facility] Miscellaneous Notes* Telephone Encounter - Evon [...] her know when it is ready for order picker. * Telephone Encounter - Mirna Santos MA - 02/01/2025 2:42 PM EDT Faxed form completed to [facility] with A1C and office note Mirna Santos MA * Telephone Encounter - Evon Philippe LPN - 01/29/2025 8:31 AM EDT COVERMY[employer]S RESPONSE. [employer] does not handle this review. Please visit [email or web address] to start a prior authorization or fax information to [phone]. Please include all supporting chart notes. You may contact [employer] at [phone]. WILL FAX PA REQUEST TO NUMBER PROVIDED. [...] needs PA due to dose change). Provider: [email or web address] Company Name: [employer] Phone number: [phone] Patient ID number: [id number] Pharmacy Name: [facility] Telephone number: [phone] documented in this encounterNewark Hospital03-31-2025 Telephone encounter Note * Telephone Encounter - Mirna Santos MA - 02/01/2025 2:42 PM EDT Faxed form completed to [employer] with A1C and office note Mirna Santos MA [facility]03-28-2025 Telephone encounter Note* Telephone Encounter - Evon Philippe LPN - 01/29/2025 8:31 AM EDT [employer] RESPONSE. [employer] does not handle this review. Please visit [email or web address] to start a prior authorization or fax information to [phone]. Please include all supporting chart notes. You may contact [employer] at [phone]. WILL FAX PA REQUEST TO NUMBER PROVIDED. Records faxed to for PA. [facility]03-27-20[facility] Telephone encounter Note* Telephone Encounter - Evon Philippe LPN - 01/28/2025 4:56 PM EDT Unable to complete electronically. Will try on covermymeds [facility]03-27-2025 Telephone encounter Note* Telephone Encounter - Evon Philippe LPN - 01/28/2025 4:55 PM EDT Electronic PA requested. [facility]03-27-[facility] Telephone encounter Note* Telephone Encounter - Krystle Barnett RN - 01/28/2025 4:51 PM EDT Prior Authorization Documentation Prior authorization requested for the following medication: Medication: Ozempic 1 mg (all though PA done in Aug 2024 and approved until Aug 2025 this needs PA due to dose change). Provider: [employer] Name: Gumaro Cavazos [employer] Phone number: [phone] Patient ID number: [id number] Pharmacy Name: [facility] Telephone number: [phone] [facility]03-27-[facility] Telephone encounter Note* Telephone Encounter - Dennise Robles MA - 01/28/2025 8:45 AM EDT Scan on 01/28/2025 8:29 AM by Sherry Mccallum PA-C: BMP Scan on 01/28/2025 8:17 AM by Sherry Mccallum PA-C: HGB A1C [facility]03-27-2025 Miscellaneous Notes* Telephone Encounter - Dnenise Robles MA - 01/28/2025 8:45 AM EDT Scan on 01/28/2025 8:29 AM by Sherry Mccallum PA-C: BMP Scan on 01/28/2025 8:17 AM by Sherry Mccallum PA-C: HGB A1C documented in this encounterNewark Hospital03-21-2025 NoteHNO ID: [id number] Author: IVETTE GRIMES MD Service: ? Author [...] same. Arm goes numb. Has seen Dr Rasheed in the past for it in the [...] 1 tablet by mouth once daily. Ipratropium [place] (ATROVENT) 21 mcg (0.03 %) nasal spray [...] 1 Each by INTRAUTERINE route as directed. [place]-3 Fatty Acids (FISH OIL) 500 mg cap Take 1 capsule by mouth once daily. blood sugar diagnostic (BLOOD GLUCOSE TEST) test strip Test blood sugar(s) 1 times daily. Dx: Type 2 DM - Controlled E11.9 Insulin: Yes Lancets lancets Test blood sugar(s) 1 times daily. Dx: Type 2 DM - Controlled E11.9 Insulin: No Lklenwzp-Yp-Sec-Fe-FA tab Take 1 tablet by mouth once [...] Age of Onset Alcohol/Drug Mother Heart Father SD Cancer Father PANCREATIC CANCER Diabetes Father Coronary [...] Wt Readings: Date: Wt: (more content not included)...[facility]03-21-2025 History of Present illness Narrative* Ivette [...] same. Arm goes numb. Has seen Dr Rasheed in the past for it in the [...] 1 tablet by mouth once daily. Ipratropium [place] (ATROVENT) 21 mcg (0.03 %) nasal spray [...] 1 Each by INTRAUTERINE route as directed. [place]-3 Fatty Acids (FISH OIL) 500 mg cap Take 1 capsule by mouth once daily. blood sugar diagnostic (BLOOD GLUCOSE TEST) test strip Test blood sugar(s) 1 times daily. Dx: Type 2 DM - Controlled E11.9 Insulin: Yes Lancets lancets Test blood sugar(s) 1 times daily. Dx: Type 2 DM - Controlled E11.9 Insulin: No Bfbgjaak-Vy-Jmv-Fe-FA tab Take 1 tablet by mouth once [...] Age of Onset Alcohol/Drug Mother Heart Father SD Cancer Father PANCREATIC CANCER Diabetes Father Coronary [...] six months and prn. documented in this encounterNewark Hospital02-21-2025 Telephone encounter Note * Telephone Encounter [...] Storey LPN December 25, 2024 8:58 AM [facility]02-21-2025 Miscellaneous Notes* Telephone Encounter - Nirmala [...] 25, 2024 8:58 AM documented in this encounterNewark Hospital02-17-2025 Telephone encounter Note * Telephone Encounter - Jumana Harrell LPN - 12/21/2024 3:19 PM EST Patient notified of results, verbalizes understanding of instructions. Pt stated she is about 80% better with the z-pack and cough drops. Will call is get worse again. Jumana Harrell LPN [facility]02-17-2025 Miscellaneous Notes* Telephone Encounter - Jumana Harrell LPN - 12/21/2024 3:19 PM EST Patient notified of results, verbalizes understanding of instructions. Pt stated she is about 80% better with the z-pack and cough drops. Will call is get worse again. Jumana Harrell LPN * Telephone Encounter - Jenni Jain APRN.MAINTAINER OPERATOR - 12/21/2024 2:33 PM EST Can you [...] her symptoms improved with the zpack? Jenni Jain APRN.CNP documented in this encounterNewark Hospital02-17-2025 Telephone encounter Note * Telephone Encounter - Jenni Jain APRN.CNP - 12/21/2024 2:33 PM EST Can [...] her symptoms improved with the zpack? Jenni Jain APRN.CNP [facility] Work Phone: 1(677) 317-737102-07-2025 Telephone encounter Note* Telephone Encounter - Jumana Harrell LPN - 12/11/2024 2:24 PM EST Patient notified of results, verbalizes understanding of instructions. Jumana Harrell LPN [facility]02-07-2025 Miscellaneous Notes* Telephone Encounter - Jumana Harrell LPN - 12/11/2024 2:24 PM EST Patient notified of results, verbalizes understanding of instructions. Jumana Harrell LPN * Telephone Encounter - Jenni Jain APRN.CNP - 12/11/2024 2:16 PM EST Can you please call the patient and let her know that I am still waiting for x- ray results from [facility]. I went ahead and sent in [...] tablet daily until gone. Authorizing Provider: JENNI JAIN APRN.CNP documented in this encounterNewark Hospital02-07-2025 Telephone encounter Note * Telephone Encounter - Jenni Jain APRN.CNP - 12/11/2024 2:16 PM EST Can you please call the patient and let her know that I am still waiting for x- ray results from [facility]. I went ahead and sent in [...] tablet daily until gone. Authorizing Provider: JENNI JAIN APRN.CNP [facility]02-07-2025 Instructions* Patient Instructions* Jenni Jain APRN.CNP - 12/11/2024 11:32 AM EST Get chest xray completed today May use Codeine cough syrup as needed for cough Stay well hydrated Follow up pending test results. documented in this encounterNewark Hospital02-07-2025 History of Present illness Narrative* Jenni Jain APRN.CNP - 12/11/2024 11:00 AM EST This [...] 1 tablet by mouth once daily. Ipratropium [place] (ATROVENT) 21 mcg (0.03 %) nasal spray [...] 1 Each by INTRAUTERINE route as directed. [place]-3 Fatty Acids (FISH OIL) 500 mg cap Take 1 capsule by mouth once daily. blood sugar diagnostic (BLOOD GLUCOSE TEST) test strip Test blood sugar(s) 1 times daily. Dx: Type 2 DM - Controlled E11.9 Insulin: Yes Lancets lancets Test blood sugar(s) 1 times daily. Dx: Type 2 DM - Controlled E11.9 Insulin: No Kwogwvzp-Pq-Nsj-Fe-FA tab Take 1 tablet by mouth once daily. No current facility-administered medications for this visit. FAMILY HISTORY Problem Relation Age of Onset Alcohol/Drug Mother Heart Father SD Cancer Father PANCREATIC CANCER Diabetes Father Coronary [...] were discussed and patient voices understanding. Jenni Jain APRN.GABRIELA This note was partially generated using Knimbus voice recognition system. Note was reviewed for accuracy. There may be minor misspellings or grammar miscues with Knimbus voice recognition. documented in this encounterNewark Hospital02-07-2025 NoteHNO ID: [id number] Author: JENNI JAIN APRN.CNP Service: ? Author Type: Nurse Practitioner [...] 1 tablet by mouth once daily. Ipratropium [place] (ATROVENT) 21 mcg (0.03 %) nasal spray [...] 1 Each by INTRAUTERINE route as directed. [place]-3 Fatty Acids (FISH OIL) 500 mg cap Take 1 capsule by mouth once daily. blood sugar diagnostic (BLOOD GLUCOSE TEST) test strip Test blood sugar(s) 1 times daily. Dx: Type 2 DM - Controlled E11.9 Insulin: Yes Lancets lancets Test blood sugar(s) 1 times daily. Dx: Type 2 DM - Controlled E11.9 Insulin: No Gwlttovq-Us-Cqd-Fe-FA tab Take 1 tablet by mouth once daily. No current facility-administered medications for this visit. FAMILY HISTORY Problem Relation Age of Onset Alcohol/Drug Mother Heart Father SD Cancer Father PANCREATIC CANCER Diabetes Father Coronary [...] : No history o (more content not included)...[facility] 12-11-2024 Telephone encounter Note* Telephone Encounter - Brittney Meredith RN - 12/11/2024 8:17 AM EST Patient calling to make appt for evaluation of respiratory sx's that began approx 4 weeks ago. Pt states she feels she may have bronchitis or pneumonia. States she was at [facility] ER last month due to dizziness, [...] Nyquil-not very effective. Appt made with Aparna Jani CNP for evaluation of respiratory sx's. Brittney Meredith RN [facility]02-07-2025 Miscellaneous Notes* Telephone Encounter - Brittney Meredith RN - 12/11/2024 8:17 AM EST Patient calling to make appt for evaluation of respiratory sx's that began approx 4 weeks ago. Pt states she feels she may have bronchitis or pneumonia. States she was at [facility] ER last month due to dizziness, [...] Nyquil-not very effective. Appt made with Aparna Jain CNP for evaluation of respiratory sx's. Brittney Meredith RN documented in this encounterNewark Hospital01-22-2025 Telephone encounter Note * Telephone Encounter [...] Eric LPN November 25, 2024 2:23 PM [facility]01-22-2025 Miscellaneous Notes* Telephone Encounter - Hailey [...] Thank you. Stephanie Parsons. documented in this encounterNewark Hospital01-22-2025 Telephone encounter Note * Telephone Encounter [...] found Please advise. Thank you. Stephanie Parsons. [facility]01-20-2025 Telephone encounter Note* Telephone Encounter - [...] Judith Cueto November 23, 2024 12:34 PM [facility]01-20-2025 Miscellaneous Notes* Telephone Encounter - Rupal Cueto Judith - 11/23/2024 12:33 PM EST Prescription Refill [...] 23, 2024 12:34 PM documented in this encounterNewark Hospital01-14-2025 NotePatient Outreach (FAMPWS) TORI GRAY ([id number]) 1980 F Date Time Provider Department 11/17/24 [...] for screening mammogram for breast cancer [Z12.31] Order(s):[facility] SCREENING [facility]QUEL[facility] [[id number]] Order #: [id number] FUTURE Prescriptions as of 12/18/2024 - potassium [...] tablet by mouth once daily. - Ipratropium [place]ane (ATROVENT) 21 mcg (0.03 %) nasal spray [...] Each by INTRAUTERINE route as directed. - [place]-3 Fatty Acids (FISH OIL) 500 mg cap Take 1 capsule by mouth once daily. - blood sugar diagnostic (BLOOD GLUCOSE TEST) test strip Test blood sugar(s) 1 times daily. Dx: Type 2 DM - Controlled E11.9 Insulin: Yes - Lancets lancets Test blood sugar(s) 1 times daily. Dx: Type 2 DM - Controlled E11.9 Insulin: No - Whxqnszd-Hq-Riv-Fe-FA tab Take 1 tablet by mouth once [...] 05/06/2009 01/23/2010 Routine general medical examination at [facility]*01/23/2010 12/06/2012 Class: Chronic Routine gynecological examination [Z01.419] 01/23/2010 02/22/2014 Class: Chronic Morbid Obesity [E66.01] 01/23/2010 Lumbar Disc Disorder [M51.9] 02/16/2010 Routine general medical examination at [facility]*12/06/2012 02/22/2014 Anxiety [F41.9] 06/07/2014 Type 2 [...] type 2 diabetes m (more content not included)...[facility]12-23-[facility] Telephone encounter Note* Telephone Encounter - [...] [place] RN October 26, 2024 7:53 PM [facility]12-23-[facility] Miscellaneous Notes* Telephone Encounter - Priscila [...] 26, 2024 7:53 PM documented in this encounterNewark Hospital12-16-2024 History of Present illness Narrative* Ivette [...] visit. Either the patient or their legal screening representative has been informed of the risks [...] hours asneeded for wheezing/shortness of breath. Ipratropium [place] (ATROVENT) 21 mcg (0.03 %) nasal spray [...] 1 Each by INTRAUTERINE route as directed. [place]-3 Fatty Acids (FISH OIL) 500 mg cap Take 1 capsule by mouth once daily. blood sugar diagnostic (BLOOD GLUCOSE TEST) test strip Test blood sugar(s) 1 times daily. Dx: Type 2 DM - Controlled E11.9 Insulin: Yes Lancets lancets Test blood sugar(s) 1 times daily. Dx: Type 2 DM - Controlled E11.9 Insulin: No Nkggybxh-Wp-Fbz-Fe-FA tab Take 1 tablet by mouth once [...] Age of Onset Alcohol/Drug Mother Heart Father SD Cancer Father PANCREATIC CANCER Diabetes Father Coronary [...] TABLET Ivette Grimes MD documented in this encounterNewark Hospital12-16-2024 NoteHNO ID: [id number] Author: IVETTE GRIMES MD Service: ? Author [...] visit. Either the patient or their legal screening representative has been informed of the risks [...] as needed for wheezing/shortness of breath. Ipratropium [place]ane (ATROVENT) 21 mcg (0.03 %) nasal spray [...] 1 Each by INTRAUTERINE route as directed. [place]-3 Fatty Acids (FISH OIL) 500 mg cap Take 1 capsule by mouth once daily. blood sugar diagnostic (BLOOD GLUCOSE TEST) test strip Test blood sugar(s) 1 times daily. Dx: Type 2 DM - Controlled E11.9 Insulin: Yes Lancets lancets Test blood sugar(s) 1 times daily. Dx: Type 2 DM - Controlled E11.9 Insulin: No Ehmmsvkj-Pi-Dkw-Fe-FA tab Take 1 tablet by mouth once [...] Age of Onset Alcohol/Drug Mother Heart Father SD Cancer Father PANCREATIC CANCER Diabetes Father Coronary [...] wheeze. No pallor. ASSESSM (more content not included)...[facility]12-16-2024 Evaluation note* Diagnosis Onset Date Resolution Status Admit Date Segmental and somatic dysfunction of lumbar region acute Oct emb2023 8:57am Segmental and somatic dysfunction of pelvic region acute Oct 8:57am Segmental and somatic dysfunction of thoracic region acute October 19, 8:57am Disc displacement, lumbar chronic October 19, 2024 8:57am [facility] Work Phone: 1(880) 640-739011-21-2024 History of Present illness Narrative* Ivette Grimes [...] visit. Either the patient or their legal screening representative has been informed of the risks [...] No increased caffeine. Sugars are increased recently 546=364's. Not coming down as much as it [...] hours asneeded for wheezing/shortness of breath. Ipratropium [place] (ATROVENT) 21 mcg (0.03 %) nasal spray [...] 1 Each by INTRAUTERINE route as directed. [place]-3 Fatty Acids (FISH OIL) 500 mg cap Take 1 capsule by mouth once daily. blood sugar diagnostic (BLOOD GLUCOSE TEST) test strip Test blood sugar(s) 1 times daily. Dx: Type 2 DM - Controlled E11.9 Insulin: Yes Lancets lancets Test blood sugar(s) 1 times daily. Dx: Type 2 DM - Controlled E11.9 Insulin: No Hwpmbgrh-Jt-Pux-Fe-FA tab Take 1 tablet by mouth once [...] Age of Onset Alcohol/Drug Mother Heart Father SD Cancer Father PANCREATIC CANCER Diabetes Father Coronary [...] weeks Ivette Grimes MD documented [facility]11-[facility]-2024 NoteHNO ID: [id number] Author: IVETTE GRIMES MD Service: ? Author [...] visit. Either the patient or their legal screening representative has been informed of the risks [...] No increased caffeine. Sugars are increased recently 027=629's. Not coming down as much as it [...] as needed for wheezing/shortness of breath. Ipratropium [place] (ATROVENT) 21 mcg (0.03 %) nasal spray [...] 1 Each by INTRAUTERINE route as directed. [place]-3 Fatty Acids (FISH OIL) 500 mg cap Take 1 capsule by mouth once daily. blood sugar diagnostic (BLOOD GLUCOSE TEST) test strip Test blood sugar(s) 1 times daily. Dx: Type 2 DM - Controlled E11.9 Insulin: Yes Lancets lancets Test blood sugar(s) 1 times daily. Dx: Type 2 DM - Controlled E11.9 Insulin: No Escidtjf-Es-Cxw-Fe-FA tab Take 1 tablet by mouth once [...] Age of Onset Alcohol/Drug Mother Heart Father SD Cancer Father PANCREATIC CANCER Diabetes Father Coronary [...] Wt Readings: Date: Wt: (more content not included)...[facility]10-31-2024 Instructions* Patient Instructions* Fatuma Beckford PA-C [...] office for further instructions. documented in this encounterNew[facility]10-31-2024 History of Present illness Narrative* Fatuma [...] for migraine Informed Consent Consent Obtained: Written [place] Protocol A moment to CARE was completed [...] applicable Written Consent Obtained: Written LOT #: [id number] Expiration Date: Month: Year: 2025 Second vial: LOT #: [id number] Expiration Date: Month: 12 Year: 2025 Injection Sites Left (Units) Left (Sites) Right (Units) Right (Sites) TOTAL (Units) [employer] 5 1 5 1 10 Procerus Units: [...] march. Fatuma Beckford PA-C documented in this encounterNewark [facility]10-29-2024 Telephone encounter Note * Telephone Encounter - Rebecca Baker - 09/01/2024 4:08 PM EDT Tori was Ok'ed to get her botox appointment moved into a new patient time due to frequent rescheduling of this visit. She is now scheduled for 09/03. She has also requested a refill of her Nurtec ODT medication. Please adviseRebecca [facility]10-29[facility] Miscellaneous Notes* Telephone Encounter - Rebecca Baker - 09/01/2024 4:08 PM EDT Tori was Ok'ed to get her botox appointment moved into a new patient time due to frequent rescheduling of this visit. She is now scheduled for 09/03. She has also requested a refill of her Nurtec ODT medication. Please adviseRebecca documented in this encounterNewark Hospital10-29-2024 Telephone encounter Note * Telephone Encounter [...] with this date and time. Rebecca Baker [facility]10-29-2024 Miscellaneous Notes* Telephone Encounter - Rebecca [...] Nieto - 09/01/2024 3:30 PM EDT 09/10 [place] appt rescheduled to 10/08 and put on wait list. Provider will be out of office. 1st attempt to notify pt, sent MC message. documented in this encounterNewark Hospital10-29-2024 Telephone encounter Note * Telephone Encounter - Tala Wilson - 09/01/2024 3:54 PM EDT Patient read mychart [facility]10-29-2024 Telephone encounter Note* Telephone Encounter - Steph Nieto - 09/01/2024 3:30 PM EDT 09/10 [place] app[place] rescheduled to 10/08 and put on wait list. Provider will be out of office. 1st attempt to notify pt, sent MC message. [facility]10-08-[facility] Telephone encounter Note* Telephone Encounter - Steph Nieto - 08/11/2024 3:58 PM EDT Pt read MC message. [facility]10-08-[facility]24 Miscellaneous Notes* Telephone Encounter - Steph Nieto - 08/11/2024 3:58 PM EDT Pt read MC message. * Telephone Encounter - Steph Nieto - 08/11/2024 3:32 PM EDT er appt on 09/10 moved to 3 PM. 1st attempt to notify pt, sent MC message. documented in this encounterNewark Hospital10-08-2024 Telephone encounter Note * Telephone Encounter - Steph Nieto - 08/11/2024 3:32 PM EDT er appt on 09/10 moved to 3 PM. 1st attempt to notify pt, sent MC message. [facility]10-[facility] Telephone encounter Note* Telephone Encounter - [...] Salmon MA August 11, 2024 11:06 AM [facility]10-08-2024 Miscellaneous Notes* Telephone Encounter - Ingrid [...] 11, 2024 11:06 AM documented in this encounterNewark Hospital10-03-2024 Telephone encounter Note * Telephone Encounter - Dennise Robles MA - 08/06/2024 10:38 AM EDT APPROVAL. SAGE. EOC # [id number] VALIDITY DATES 08/06/24-08/05/25 Pharmacy informed. Dennise Robles MA [facility]10-03-2024 Miscellaneous Notes* Telephone Encounter - Dennise Robles MA - 08/06/2024 10:38 AM EDT APPROVAL. SAGE. EOC # [id number] VALIDITY DATES 08/06/24-08/05/25 Pharmacy informed. 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 Excited for this because will not be as physical. Reviewed labs recently done at [facility]. A1c was 6.7. ldl was 105. [...] hours asneeded for wheezing/shortness of breath. Ipratropium [place] (ATROVENT) 21 mcg (0.03 %) nasal spray [...] 1 Each by INTRAUTERINE route as directed. [place]-3 Fatty Acids (FISH OIL) 500 mg cap Take 1 capsule by mouth once daily. blood sugar diagnostic (BLOOD GLUCOSE TEST) test strip Test blood sugar(s) 1 times daily. Dx: Type 2 DM - Controlled E11.9 Insulin: Yes Lancets lancets Test blood sugar(s) 1 times daily. Dx: Type 2 DM - Controlled E11.9 Insulin: No Tzbikjgt-Lc-Xlt-Fe-FA tab Take 1 tablet by mouth once [...] Age of Onset Alcohol/Drug Mother Heart Father SD Cancer Father PANCREATIC CANCER Diabetes Father Coronary [...] stable. Ivette Grimes MD documented in this encounterNewark Hospital09-23-2024 Telephone encounter Note * Telephone Encounter [...] Yoon LPN July 27, 2024 8:45 AM [facility]09-23-2024 Miscellaneous Notes* Telephone Encounter - Lubna [...] 27, 2024 8:45 AM documented in this encounterNewark Hospital09-17-2024 Telephone encounter Note * Telephone Encounter - Ingrid Salmon MA - 07/21/2024 3:02 PM EDT Pt notified. Requested to have order faxed to [facility]. Order faxed. Ingrid Samlon MA [facility]09-17-2024 Miscellaneous Notes* Telephone Encounter - Ingrid Salmon MA - 07/21/2024 3:02 PM EDT Pt notified. Requested to have order faxed to [facility]. Order faxed. Ingrid Salmon MA * [...] advise, Gale Bower RN documented in this encounterNewark Hospital09-17-2024 Telephone encounter Note * Telephone Encounter - Ivette Grimes MD - 07/21/2024 2:18 PM EDT ordered [facility]09-17-[facility] Telephone encounter Note* Telephone Encounter - Gale Bower RN - 07/21/2024 1:45 PM EDT Patient calls and states that cough is not getting any better. Patient states that Dr. Grimes had told her that if cough had not improved that provider wanted to order her a chest xray. Please review and advise, Gale Bower RN [facility]09-06-2024 Telephone encounter Note* Telephone Encounter - Nirmala Storey LPN - 07/10/2024 11:16 AM EDT Left detailed message for patient. [facility]09-06-[facility]24 Miscellaneous Notes* Telephone Encounter - Nirmala Storey LPN - 07/10/2024 11:16 AM EDT Left detailed message for patient. * Telephone Encounter - Ivette Grimes MD - 07/10/2024 11:11 AM EDT Rx sent for Mastodon C. Lets try this Call sugars in two [...] advise, Gale Bower RN documented in this encounterNewark Hospital09-06-2024 Telephone encounter Note * Telephone Encounter - Ivette Grimes MD - 07/10/2024 11:11 AM EDT Rx sent for farxiga. Lets try this Call sugars in two weeks. [facility]09-05-2024 Telephone encounter Note* Telephone Encounter - [...] Please review and advise, Gale Bower RN [facility]09-04-2024 Telephone encounter Note* Telephone Encounter - Ivette Grimes MD - 07/08/2024 2:03 PM EDT noted [facility]09-04-2024 Miscellaneous Notes* Telephone Encounter - Ivette Grimes MD - 07/08/2024 2:03 PM EDT noted * Telephone Encounter - Dennise Robles MA - 07/08/2024 1:13 PM EDT Labs in chart review. Dennise Robles MA documented in this encounterNewark Hospital09-04-2024 Telephone encounter Note * Telephone Encounter - Dennise Robles MA - 07/08/2024 1:13 PM EDT Labs in chart review. Dennise Robles MA [facility]08-30-2024 History of Present illness Narrative* Ivette [...] hours asneeded for wheezing/shortness of breath. Ipratropium [place] (ATROVENT) 21 mcg (0.03 %) nasal spray [...] 1 Each by INTRAUTERINE route as directed. [place]-3 Fatty Acids (FISH OIL) 500 mg cap Take 1 capsule by mouth once daily. blood sugar diagnostic (BLOOD GLUCOSE TEST) test strip Test blood sugar(s) 1 times daily. Dx: Type 2 DM - Controlled E11.9 Insulin: Yes Lancets lancets Test blood sugar(s) 1 times daily. Dx: Type 2 DM - Controlled E11.9 Insulin: No Lfodgnfn-Jw-Wks-Fe-FA tab Take 1 tablet by mouth once [...] Age of Onset Alcohol/Drug Mother Heart Father SD Cancer Father PANCREATIC CANCER Diabetes Father Coronary [...] follow up or prn documented in this encounterNewark Hospital08-24-2024 Telephone encounter Note * Telephone Encounter [...] Lazo LPN June 27, 2024 11:35 AM [facility]24[facility] Miscellaneous Notes* Telephone Encounter - Quinn [...] 27, 2024 11:35 AM documented in this encounterNewark Hospital08-24-2024 Telephone encounter Note * Telephone Encounter [...] Lazo LPN June 27, 2024 11:29 AM [facility]-24-[facility] Miscellaneous Notes* Telephone Encounter - Quinn [...] 27, 2024 11:29 AM documented in this encounterNewark Hospital08-08-2024 Telephone encounter Note * Telephone Encounter - Lubna De La Garza APRN.CNP - 06/11/2024 12:40 PM EDT Tessalon Perles were ordered. [facility]08-08-[facility]24 Miscellaneous Notes* Telephone Encounter - Lubna De La Garza APRN.CNP - 06/11/2024 12:40 PM EDT Ananthsalon Antelmo were ordered. * Telephone Encounter - Ingrid Salmon MA - 06/11/2024 12:25 PM EDT See [email or web address] message documented in this encounterNewark Hospital08-08-2024 Telephone encounter Note * Telephone Encounter - Ingrid Salmon MA - 06/11/2024 12:25 PM EDT See [employer] message [facility]08-01-2024 Telephone encounter Note* Telephone Encounter - Claribel Wright LPN - 06/04/2024 3:37 PM EDT Prior Auth Determination: Denied with Cover my meds. Received via: [facility] Medication/ Treatment: [facility] Reason: Outcome N/A today by [facility] [address] [facility] Prior Authorization Department does not manage Prior Authorizations for this plan. Please contact member services phone number on the back of the member ID card. Appeal Information (if included): Re submitted via [employer] Faxed to [phone] Confirmation received [facility]08-01-2024 Miscellaneous Notes* Telephone Encounter - Claribel Wright LPN - 06/04/2024 3:37 PM EDT Prior Auth Determination: Denied with Cover my meds. Received via: [facility] Medication/ Treatment: Nurtec Reason: Outcome N/A today by [facility] [address] [facility] Prior Authorization Department does not manage Prior Authorizations for this plan. Please contact member services phone number on the back of the member ID card. Appeal Information (if included): Re submitted via [employer] Faxed to [phone] Confirmation received * Telephone Encounter - Claribel Wright LPN - 06/04/2024 2:22 PM EDT Prior Authorization PENDING Prior Authorization Request From: [facility] Medication/ Treatment: Nurtec Submitted Via Cover My Meds Reference# (if available): (Santos: [id number]) documented in this encounterNewark Hospital08-01-2024 Telephone encounter Note * Telephone Encounter - Claribel Wrgiht LPN - 06/04/2024 2:22 PM EDT Prior Authorization PENDING Prior Authorization Request From: [facility] Medication/ Treatment: Nurtec Submitted Via Cover My Meds Reference# (if available): (Santos: [id number]) [facility]07-31-[facility] History of Present illness Narrative* Ivette [...] visit. Either the patient or their legal screening representative has been informed of the risks [...] hours asneeded for wheezing/shortness of breath. Ipratropium [place] (ATROVENT) 21 mcg (0.03 %) nasal spray [...] 1 Each by INTRAUTERINE route as directed. [place]-3 Fatty Acids (FISH OIL) 500 mg cap Take 1 capsule by mouth once daily. blood sugar diagnostic (BLOOD GLUCOSE TEST) test strip Test blood sugar(s) 1 times daily. Dx: Type 2 DM - Controlled E11.9 Insulin: Yes Lancets lancets Test blood sugar(s) 1 times daily. Dx: Type 2 DM - Controlled E11.9 Insulin: No Lnpkbshx-Ne-Iep-Fe-FA tab Take 1 tablet by mouth once [...] Age of Onset Alcohol/Drug Mother Heart Father SD Cancer Father PANCREATIC CANCER Diabetes Father Coronary [...] issues. Ivette Grimes MD documented in this encounterNewark Hospital07-10-2024 Telephone encounter Note * Telephone Encounter [...] Lazo LPN May 13, 2024 11:29 AM [facility]07-10-2024 Miscellaneous Notes* Telephone Encounter - Quinn [...] 13, 2024 11:29 AM documented in this encounterNewark Hospital06-28-2024 Telephone encounter Note * Telephone Encounter - Cindy Edouard APRN.CNP - 05/01/2024 12:08 PM EDT Script sent. Cindy Edouard APRN.CNP [facility] Work Phone: 1(809) 887-300906-28-2024 Miscellaneous Notes* Telephone Encounter - Cindy Edouard APRN.CNP - 05/01/2024 12:08 PM EDT Script sent. Cindy Edouard APRN.CNP * Telephone Encounter - Rukhsana Wood - 05/01/2024 11:47 AM EDT Tori is calling Ivette Grimes MD today to request a medication not on current med list: Tizanidine 4 mg tablet taking every 8 hours as needed #60 refill 0 Pharmacy [facility] Please send today if possible, patient is out of this [facility] Patient has been identified by name and birthdate. Duration of symptoms: N/A Person calling: self Call patient at: on cell [phone] (home) [phone] (work) [phone] (cell) Was an appointment scheduled: No Closing statement: Results or non-symptom based questions: Thank you for calling [facility], your call will be returned within the next business day. Rukhsana Guerrero documented in this encounterNewark Hospital06-28-2024 Telephone encounter Note * Telephone Encounter - Rukhsana Wood - 05/01/2024 11:47 AM EDT Tori is calling Ivette Grimes MD today to request a medication not on current med list: Tizanidine 4 mg tablet taking every 8 hours as needed #60 refill 0 Pharmacy [facility] Please send today if possible, patient is out of this [facility] Patient has been identified by name and birthdate. Duration of symptoms: N/A Person calling: self Call patient at: on cell [phone] (home) [phone] (work) [phone] (cell) Was an appointment scheduled: No Closing statement: Results or non-symptom based questions: Thank you for calling [facility], your call will be returned within the next business day. Rukhsana Guerrero [facility]06-17-2024 Telephone encounter Note* Telephone Encounter - Priscila France RN - 04/20/2024 11:20 AM EDT Removed the "Take one po qhs" from the signature, that was on with [...] France RN April 20, 2024 11:22 AM [facility]-17-2024 Miscellaneous Notes* Telephone Encounter - Priscila France RN - 04/20/2024 11:20 AM EDT Removed the "Take one po qhs" from the signature, that was on with [...] 20, 2024 11:22 AM documented in this encounterNewark Hospital06-17-2024 Telephone encounter Note * Telephone Encounter [...] Yoon LPN April 20, 2024 10:56 AM [facility]-17-[facility]24 Miscellaneous Notes* Telephone Encounter - Lubna [...] 20, 2024 10:56 AM documented in this encounterNewark Hospital06-12-2024 Telephone encounter Note * Telephone Encounter - Mirna Santos MA - 04/15/2024 12:33 PM EDT PA approved till 04/14/2025. Faxed approval to pharmacy and patient left Mirna Santos MA [facility]06-12-2024 Miscellaneous Notes* Telephone Encounter - Mirna Santos MA - 04/15/2024 12:33 PM EDT PA approved till 04/14/2025. Faxed approval to pharmacy and patient left vm Mirna Santos MA * Telephone Encounter - Mirna Santos MA - 04/15/2024 8:42 AM EDT Submitted PA through [employer] for Trulicity 0.75 mg. Form faxed with office notes and A1c results Mirna Santos MA documented in this encounterNewark Hospital06-12-2024 Telephone encounter Note * Telephone Encounter - Mirna Santos MA - 04/15/2024 8:42 AM EDT Submitted PA through [employer] for Trulicity 0.75 mg. Form faxed with office notes and A1c results Mirna Santos MA [facility]06-11-2024 Telephone encounter Note* Telephone Encounter - Sheron Anne - 04/14/2024 9:01 AM EDT Last: 02/15/2023 Noted-Follow up in 3 months. Consider transfer of care back to PCP if patient does well on the current dose of her medication atthe next visit. It does not appear that you have seen her since [facility]06-11-2024 Miscellaneous Notes* Telephone Encounter - Sheron Anne - 04/14/2024 9:01 AM EDT Last: 02/15/2023 Noted-Follow up in 3 months. Consider transfer of care back to PCP if patient does well on the current dose of her medication atthe next visit. It does not appear that you have seen her since documented in this encounterNewark Hospital06-03-2024 Telephone encounter Note * Telephone Encounter - Darrion Severino MA - 04/06/2024 2:26 PM EDT Reminder set for botox authorization to be submitted 05/31. Due for next visit 07/01/24. Previous 04/02/24. [facility]06-03-2024 Miscellaneous Notes* Telephone Encounter - Darrion Severino MA - 04/06/2024 2:26 PM EDT Reminder set for botox authorization to be submitted 05/31. Due for next visit 07/01/24. Previous 04/02/24. documented in this encounterNewark Hospital05-30-2024 Instructions* Patient Instructions* Fatuma Beckford PA-C [...] at for further instructions. documented in this encounterNewark Hospital05-30-2024 History of Present illness Narrative* Fatuma [...] for migraine Informed Consent Consent Obtained: Written [place] Protocol A moment to CARE was completed [...] applicable Written Consent Obtained: Written LOT #: [id number] Expiration Date: Month: Year: 2025 Second vial: LOT #: [id number] Expiration Date: Month: 6 Year: 2025 Injection Sites Left (Units) Left (Sites) Right (Units) Right (Sites) TOTAL (Units) [employer] 5 1 5 1 10 Procerus Units: [...] needed. Fatuma Beckford PA-C documented in this encounterNewark Hospital04-26-2024 Telephone encounter Note * Telephone Encounter - Alyssa Andrews LPN - 02/28/2024 1:21 PM EDT Patient [employer] Agency[employer] message requesting the following refill Refill(s) Requested: Requested Prescriptions Pending Prescriptions Disp Refills tiZANidine (ZANAFLEX) 4 mg tablet 60 tablet 0 Sig: Take 1 tablet by mouth every 8 hours as needed. ALLERGIES Allergen Reactions Lidocaine Hives Steroids [Betametha* Hives (home) [phone] (work) [phone] (cell) Last Office Visit Date: 12/09/2023 Last [facility] Visit: 07/15/2023 Future Appointment: Visit date not found The patients preferred pharmacy has been captured for this encounter? yes Request is for script(s) to be escript to pharmacy. Alyssa Andrews LPN [facility]04-26-2024 Miscellaneous Notes* Telephone Encounter - Alyssa Andrews LPN - 02/28/2024 1:21 PM EDT Patient [employer] message requesting the following refill Refill(s) Requested: Requested Prescriptions Pending Prescriptions Disp Refills tiZANidine (ZANAFLEX) 4 mg tablet 60 tablet 0 Sig: Take 1 tablet by mouth every 8 hours as needed. ALLERGIES Allergen Reactions Lidocaine Hives Steroids [Betametha* Hives (home) [phone] (work) [phone] (cell) Last Office Visit Date: 12/09/2023 Last [facility] Visit: 07/15/2023 Future Appointment: Visit date not found The patients preferred pharmacy has been captured for this encounter? yes Request is for script(s) to be escript to pharmacy. Alyssa Andrews LPN documented in this encounterNewark Hospital03-20-2024 Miscellaneous Notes* Telephone Encounter - Stephanie Parsons - 01/22/2024 4:00 PM EDT Patient has been identified by name and date of : Yes Patient phones for refill(s): Patient called for a refill of Tizanidine 4 mg. (Not in refill list). Please send to [facility] pharmacy. Date of last office visit in primary care: 12/09/2023 Date of next office visit in primary care: none Please advise. Thank you. Stephanie Parsons. documented in this encounterNewark Hospital03-13-2024 Miscellaneous Notes* Telephone Encounter - Roya Jaramillo LPN - 01/15/2024 12:07 PM EDT Fax received- Nurtec has been approved from 01/15/24 - 04/16/24. Roya Jaramillo LPN * Telephone Encounter - Angely Goldsmith LPN - 01/14/2024 5:30 PM EDT Faxed Prior authorization Anthony, signed by provider to [employer] [phone]. Angely Goldsmith LPN * Telephone Encounter - Angely Goldsmith LPN - 01/09/2024 5:17 PM EST Prior Authorization from [employer] received for Nurtec 75 mg, EOC number [id number] dated 01/09/2024 requested a completed drug specific form to be completed, signed by provider faxed. Copy placed on MQ bin in the [place] location to review, sign. Angely Goldsmith LPN * Telephone Encounter - Roya Jaramillo LPN - 01/03/2024 3:39 PM EST Signed completed form faxed per request. Roya Jaramillo LPN * Telephone Encounter - Mariaa Ambrosio OCCA - 12/27/2023 9:01 AM EST Prior authorization needed for Nurtec. Patient has [employer], form completed and OV notes attached. Placed on providers desk for signature when she returns to office 12/31. Once signed, please fax asindicated on form. Thank you. GRISELDA Jasmine documented in [place] encounterRebecca [place] [address]-22-2024 Instructions* Patient Instructions* Fatuma Beckford PA-C - [...] office for further instructions. documented in this encounterNewark Hospital02-22-2024 History of Present illness Narrative* Fatuma [...] for migraine Informed Consent Consent Obtained: Written [place] Protocol A moment to CARE was completed [...] applicable Written Consent Obtained: Written LOT #: [id number] Expiration Date: Month: Year: 2025 Second vial: LOT #: [id number] Expiration Date: Month: Year: 2025 Injection Sites Left (Units) Left (Sites) Right (Units) Right (Sites) TOTAL (Units) [employer] 5 1 5 1 10 Procerus Units: [...] appointment. Fatuma Beckford PA-C documented in this encounterNewark Hospital02-05-2024 Miscellaneous Notes* Telephone Encounter - Nirmala Storey LPN - 12/09/2023 6:36 PM EST Faxed to [facility]. * Telephone Encounter - Ivette Grimes MD - 12/09/2023 6:04 PM EST Order placed * Telephone Encounter - Nirmala Storey LPN - 12/09/2023 5:48 PM EST Please file mammo. For [facility] need to be mammo with jaquelin. After filed please fax to [facility] for patient. documented in this encounterNewark Hospital02-05-2024 History of Present illness Narrative* Ivette Grimes MD - 12/09/2023 5:29 PM EST Patient presents with: Diabetes HPI: Patient presents today for office visit for follow up. Hb was ok per [facility] lab Still has menses. DM:not checking. [...] for 180 days. Take one poqhs Ipratropium [place] (ATROVENT) 21 mcg (0.03 %) nasal spray [...] 1 Each by INTRAUTERINE route as directed. [place]-3 Fatty Acids (FISH OIL) 500 mg cap Take 1 capsule by mouth once daily. blood sugar diagnostic (BLOOD GLUCOSE TEST) test strip Test blood sugar(s) 1 times daily. Dx: Type 2 DM - Controlled E11.9 Insulin: Yes Lancets lancets Test blood sugar(s) 1 times daily. Dx: Type 2 DM - Controlled E11.9 Insulin: No Qxjmlgxy-Cl-Hfa-Fe-FA tab Take 1 tablet by mouth once [...] Age of Onset Alcohol/Drug Mother Heart Father SD Cancer Father PANCREATIC CANCER Diabetes Father Coronary [...] - stable. Ivette Grimes documented in this encounterNewark Hospital12-24-2023 Discharge summary Author Luan Zepeda [facility] October 27, 2023 3:44pm Note Date/Time October 27, 2023 3:16pm [facility] Medical Records Department [address] [place] [address] Emergency Department Summary 10/27/23 MR#: [id number] Acct: [id number] Name: TORI GRAY Rep #:[id number] : 1980 43 From: Luan Barry PCP: Dr. Ivette Grimes MD Status:PRE E R Location: ED HPI History of Present Illness Chief Complaint: Ear Problem [facility] Medical History Abnormal ECG Acute bronchitis [...] %) nasal spray 2 spray intranasal BID oqdybaqgw77/20/20 [History Last Taken 08/03/23] omega-3 fatty acids [...] similar Factors affecting care: Type 2 diabetes [facility] Narrative: Patient was hemodynamically stable, afebrile, [...] your Primary Care Provider. Call [facility] ([phone]) or report to the closest Emergency Room. Call 911 if necessary. 10/27/23 1544 <Electronically signed by Luan Zepeda DO> Cosigner Signature (if applicable): CC: Dr. Ivette Grimes MD ~ Signed [facility] Work Phone: 1(231) 254-665312-12-2023 Miscellaneous Notes* Telephone Encounter - Fatuma Beckford PA-C - 10/15/2023 8:13 AM EST Patient was given three month supply on 09/13/23 documented in this encounterNewark Hospital12-11-2023 Miscellaneous Notes* Telephone Encounter - Quinn Lazo - 10/14/2023 1:43 PM EST Patient phones requesting refills as follows: Requested Prescriptions Pending Prescriptions Disp Refills topiramate (TOPAMAX) 100 mg tablet 60 tablet 5 Sig: Take 1 tablet by mouth two times a day. APRIL 07/15/23 NOV 12/09/23 Please review and advise. Quinn Lazo documented in this encounterNewark Hospital12-11-2023 Miscellaneous Notes* Telephone Encounter - Adriana [...] (Not on refill list). Please send to [facility] pharmacy. TY documented in this encounterNewark Hospital11-21-2023 Miscellaneous Notes* Telephone Encounter - Ry Wang - 09/24/2023 8:20 AM EST Patient's request for medication is as follows: Requested Prescriptions Pending Prescriptions Disp Refills FLUoxetine (PROZAC) 20 mg capsule 90 capsule 0 Sig: Take 1 capsule by mouth once daily. Prescription(s) as above. Please process accordingly. Ry Wang documented in this encounterNewark Hospital11-06-2023 Miscellaneous Notes* Telephone Encounter - Quinn Lazo - 09/09/2023 1:21 PM EST Patient phones requesting refills as follows: Requested Prescriptions Pending Prescriptions Disp Refills ZOLMitriptan (ZOMIG) 5 mg tablet 9 tablet 11 Sig: Take 1 tablet (5 mg) by mouth once daily. prn APRIL 07/15/23 NOV 12/09/23 Please review and advise. Quinn Lazo documented in this encounterNewark Hospital10-23-2023 Miscellaneous Notes* Telephone Encounter - Nakia Caraballo RN - 08/26/2023 11:58 AM EDT Patient scheduled for 09/13/23 at 2 pm for botox. Latonia Caraballo RN, BSN documented in this encounterNewark Hospital10-20-2023 Miscellaneous Notes* Telephone Encounter - Nirmala Storey LPN - 08/23/2023 2:40 PM EDT Completed and faxed as requested. * Telephone Encounter - Dennise Robles - 08/20/2023 11:55 AM EDT Type of form: 2022 Healthy living program Form received via mail When form is completed, Fax form to [phone] Form has been forwarded to Physician Desk: Dr. Sydney Robles documented in this encounterNewark Hospital09-01-2023 Miscellaneous Notes* Telephone Encounter - Quinn [...] advise. Quinn Lazo LPN documented in this encounterNewark Hospital09-01-2023 Miscellaneous Notes* Telephone Encounter - Jenni [...] Thank you. Jenni Zaman documented in this encounterNewark Hospital08-16-2023 History of Present illness Narrative* Rosetta Dias LPN - 06/19/2023 4:[address] Delgado, Annamariae was provided with powerstep original inserts, size [...] mouth every 8 hours as needed. Ipratropium [place] (ATROVENT) 21 mcg (0.03 %) nasal spray [...] 1 Each by INTRAUTERINE route as directed. [place]-3 Fatty Acids (FISH OIL) 500 mg cap Take 1 capsule by mouth once daily. Lancets lancets Test blood sugar(s) 1 times daily. Dx: Type 2 DM - Controlled E11.9 Insulin: No Ybwjymdi-Tz-Gha-Fe-FA tab Take 1 tablet by mouth once [...] Age of Onset Alcohol/Drug Mother Heart Father SD Cancer Father PANCREATIC CANCER Diabetes Father Coronary [...] consider spur resection MARK Stein DPM Podiatry [facility] [address] Dept: [phone] Dept * Keri Parker RN - 06/19/2023 [...] developed left foot pain documented in this encounterNewark Hospital08-16-2023 Instructions* Patient Instructions* Umesh Delgado - [...] time on their feet, such as nurses, bottle caser/waiters, andmail carriers, often experience plantar fasciitis. Athletes [...] choose the one that fits the best. [place] with your athletic shoes to find a [...] Powerstep Original Full length. Can purchase at [employer] here in [place], [employer] in [place] or [place]. Also can find in [employer] in [place]. Powersteps can also be purchased online, starting [...] everything fits well together documented in this encounterNewark Hospital08-04-2023 History of Present illness Narrative* Ivette Price Jr., MD - 06/07/2023 3:16 PM EDT [...] migraine, would like to go back to [place], noted that I do botox in this location and patient would like to transfer. EEG completed 04/02/23 at [facility] and per report, normal. Pt reports [...] mind is all over the place - "I have difficulties thinking now". States when working out through PT for her shoulder, that if she does not close her eyes and count the reps, she will forget her count. States if she talks to someone cannot recall what she was doing just prior. "I feel like in [place]." "I almost feel like I have ADHD". Had new fall 3 days ago - she feels due to wearing boot on R foot for 2 bone spurs. chair was on wheels and was holding on to the chair to sit down and then the next thing she knows she was onthe ground. No head injury. No LOC. Again EEG unremarkable as above. States that lower back hurts since fall but has "messed up disks anyway". was at chiropractor yesterday with images unremarkable per pt and treatment improving symptoms. Pt states did not want to go to ER and "deal with workman's comp". HAs are currently daily. YUAN primarily in R frontal region. No photophobia or nausea. Note I do not have a PAP data download for review despite request for it. Pt endorses PAP compliance. Pt then suddenly states she had another concussion 2 weeks ago - was working at [employer] and tubs of butter fell and hit her on the right side of the head. Pt states hurt the next day but then felt better. Did not seek medical attention. But then states went to [facility] ER where they did a CT [...] mouth every 8 hours as needed. Ipratropium [place] (ATROVENT) 21 mcg (0.03 %) nasal spray [...] 2 DM - Controlled E11.9 Insulin: No Igtgiqpe-Ff-Jmk-Fe-FA tab Take 1 tablet by mouth once daily. FLUoxetine (PROZAC) 20 mg capsule Take 1 capsule by mouth once daily. [place]-3 Fatty Acids (FISH OIL) 500 mg cap [...] Age of Onset Alcohol/Drug Mother Heart Father SD Cancer Father PANCREATIC CANCER Diabetes Father Coronary [...] Follow up after evaluation by neuro roberts chapely. Ivette Price MD I spent a total of 42 minutes on the date of the service which included preparing to see the patient, cwhx-fg-wqcn patient care, completing clinical documentation, obtaining and/or [...] of your PCP/referring physician. documented in this encounterNewark Hospital08-03-2023 History of Present illness Narrative* Ivette Grimes MD - 06/06/2023 9:30 AM EDT Patient presents with: Follow Up HPI: Patient presents today for office visit for follow up. UC visit showed 2 spurs right foot and has been wearing boot at work. Seeing podiatry Diabetes: Glucose "not bad". Is eating well. Going to gym 3 [...] eps and given ok to continue. Seeing [place] [facility]. Feeling well overall MEDICATIONS: Current Outpatient Medications Medication Sig tiZANidine (ZANAFLEX) 4 mg tablet Take 1 tablet by mouth every 8 hours as needed. Ipratropium [place] (ATROVENT) 21 mcg (0.03 %) nasal spray [...] 1 Each by INTRAUTERINE route as directed. [place]-3 Fatty Acids (FISH OIL) 500 mg cap Take 1 capsule by mouth once daily. blood sugar diagnostic (BLOOD GLUCOSE TEST) test strip Test blood sugar(s) 1 times daily. Dx: Type 2 DM - Controlled E11.9 Insulin: Yes (Patient not taking: Reported on 05/28/2023) Lancets lancets Test blood sugar(s) 1 times daily. Dx: Type 2 DM - Controlled E11.9 Insulin: No Dvmvlrlq-Sx-Esv-Fe-FA tab Take 1 tablet by mouth once [...] Age of Onset Alcohol/Drug Mother Heart Father SD Cancer Father PANCREATIC CANCER Diabetes Father Coronary [...] RTO in six months documented in this encounterNewark Hospital07-26-2023 History of Present illness Narrative* Isiah Funes APRN.CNP - 05/29/2023 4:38 PM EDT Boot provided, see yesterdays addended noted. documented in this encounterNewark Hospital07-26-2023 Miscellaneous Notes* Telephone Encounter - Priscila [...] boot. Please call Pt. documented in this encounterNewark Hospital07-17-2023 Discharge summary Author Sam Pearl [facility] May 20, 2023 10:36pm Note Date/Time May 20, 2023 10:3 6pm [facility] Medical Records Department [address] [place] [id number] Emergency Department Summary 05/20/23 MR#: [id number] Acct: [id number] Name: TORI GRAY Rep #:[id number] : 1980 42 From: Sam Pearl MD PCP: Dr. Ivette Grimes MD Status:PRE E R Location: ED HPI History of Present Illness Chief Complaint: Head Injury Informant: patient Onset/Context/Timing Onset: Hours (1.5) Mechanism/Context: Blunt Injury Narrative Narrative: Patient states she was working at a [employer], it was almost closing time, she was [...] are now made worse since this injury. [facility] Medical History Abnormal ECG Acute bronchitis [...] #10 ea 04/26/20 [History Last Taken Unknown] vykddkkw-qok-Zc-FA 1 mg capsule 1 cap PO DAILY [...] Normal speech. Can name and remember objects. [place] Coma Scale: document GCS findings Spontaneous Obeys [...] restrictions temporarily. NEXUS Head CT Instrument from [employer] on 05/20/2023 All calculations should be rechecked [...] Age >=5 years ?> 0 = No Latvian CT Head Injury/Trauma Rule from [employer] on 05/20/2023 All calculations should be rechecked by clinician prior to use RESULT SUMMARY: CT Unnecessary The Latvian Head CT Rule suggests a head CT [...] consciousness Instructions: ED Concussion Prescriptions: No Action lutjtkgs-ahd-Po-FA 1 mg capsule 1 mg capsule 1 [...] your Primary Care Provider. Call [facility] ([phone]) or report to the closest Emergency Room. Call 911 if necessary. 05/20/232235 <Electronically signed by Sam Pearl MD> Cosigner Signature (if applicable): CC: Dr. Ivette Grimes MD ~ Signed [facility] Work Phone: 1(531) 687-356907-14-2023 Instructions* Patient Instructions* Fatuma Beckford PA-C - [...] office for further instructions. documented in this encounterNewark Hospital07-14-2023 History of Present illness Narrative* Fatuma [...] 123/70 Pulse 68 Ht 170.2 cm (5' 7") Wt 132 kg (291 lb) LMP 01/02/2023 (Approximate) SpO2 97% BMI 45.58 kg/m Patient name: Tori Gray : 1980 ALLERGIES Allergen Reactions Lidocaine Hives Steroids [Betametha* Hives UNIVERSAL PROTOCOL / SAFETY CHECKLIST Procedure: Onabotulinum toxin A for migraine Informed Consent Consent Obtained: Written [place] Protocol A moment to CARE was completed [...] applicable Written Consent Obtained: Written LOT #: [id number] Expiration Date: Month: 9 Year: 2024 Second vial: LOT #: [id number] Expiration Date: Month: 6 Year: 2024 Injection Sites Left (Units) Left (Sites) Right (Units) Right (Sites) TOTAL (Units) [employer] 5 1 5 1 10 Procerus Units: [...] therapy. Fatuma Beckford PA-C documented in this encounterNewark Hospital07-05-2023 Miscellaneous Notes* Telephone Encounter - Lubna [...] you. Lubna Yoon LPN documented in this encounterNewark Hospital06-02-2023 Miscellaneous Notes* Telephone Encounter - Nirmala [...] patient. Nirmala Storey LPN documented in this encounterNewark Hospital05-17-2023 Miscellaneous Notes* Telephone Encounter - Nakia Caraballo RN - 03/20/2023 12:38 PM EDT Botox renewal sent to pharmacy. Will schedule at [place] once approved. Patient due 04/22/23. [facility] unchecked. Latonia Caraballo RN documented in this encounterNewark Hospital05-08-2023 Miscellaneous Notes* Telephone Encounter - Nakia Caraballo RN - 03/11/2023 11:01 AM EDT Patient is not due for botox until 04/22/23. Asked her which location she prefers so we can scheduleonce approved. Latonia Caraballo RN documented in this encounterNewark Hospital05-02-2023 Instructions* Patient Instructions* Fatuma Beckford PA-C - 03/05/2023 1:02 PM EDT Continue regimen Reach out with any new symptoms or worsening weakness Reach out to [facility] about moving botox Follow up with sleep provider in three months documented in this encounterNewark Hospital05-02-2023 History of Present illness Narrative* Fatuma Beckford PA-C - 03/05/2023 12:29 PM EDT ESTABLISHED PATIENT VISIT Last visit: 12/07/[address] Price ASSESSMENT/PLAN: 1. Post concussion syndrome - ICD9: [...] No other recommendations at this time. Ivette Price MD CHIEF COMPLAINT: Follow up HISTORY OF PRESENT ILLNESS: Tori Gray is a 42 year old female, There were no vitals taken for this visit. with a PMH significant for migraine, chronic shoulder pain, LETITIA, HTN, DM type 2. [facility] Patient sustained [facility] and head injury [...] Each by INTRAUTERINE route as directed. Ipratropium [place] (ATROVENT) 0.03 % nasal spray Use 2 Sprays in the nose every 12 hours. [place]-3 Fatty Acids (FISH OIL) 500 mg cap Take 1 capsule by mouth once daily. blood sugar diagnostic (BLOOD GLUCOSE TEST) test strip Test blood sugar(s) 1 times daily. Dx: Type 2 DM - Controlled E11.9 Insulin: Yes Lancets lancets Test blood sugar(s) 1 times daily. Dx: Type 2 DM - Controlled E11.9 Insulin: No Hrjzfnhy-Vr-Vbv-Fe-FA tab Take 1 tablet by mouth once daily. HISTORIES PAST MEDICAL HISTORY Diagnosis Date Acute cholecystitis Cholecystitis Anxiety 06/07/2014 Chronic back pain Kidney stones LETITIA treated with BiPAP Type 2 diabetes mellitus (HCC) FAMILY HISTORY Problem Relation Age of Onset Alcohol/Drug Mother Heart Father SD Cancer Father PANCREATIC CANCER Diabetes Father Coronary [...] dysarthria; comprehension, naming, repetition intact. Short and intermediate manager memory intact. CN: PERRL, EOMI and without [...] migraine, would like to go back to [place], noted that I do botox in this [...] which included preparing to see the patient, ecvy-if-pdwd patient care, completing clinical documentation, obtaining and/or reviewing separately obtained history, performing a medically appropriate examination, counseling and educating the pat ient/family/caregiver, and ordering medications, tests, or procedures. This document has been created with the use of voice recognition technology. It may contain inaccuracies: (e.g. misspellings, inaccurate syntax or word sense) that have escaped review. documented in this encounterNewark Hospital05-02-2023 History of Present illness Narrative* Galina [...] L1 SAB0 IAB0 Ectopic0 Multiple0 Live Births1 [place] History LMP: 01/02/2023 (Approximate), IUD Age at Menarche: Age at First : Age at Menopause: [place] History Comments: Sexual Activity: Not Currently; No [...] Age of Onset Alcohol/Drug Mother Heart Father SD Cancer Father PANCREATIC CANCER Diabetes Father Coronary [...] medication updated:Yes EXAM: BP 122/82 Ht 5' 7" (1.70m) Wt 287 lb (130.2kg) LMP 01/02/2023 [...] external genitalia normal, normal Bartholin's glands, urethra, [place]'s glands, no vulvar lesions, no cervical lesions, [...] needed Galina Camacho MD documented in this encounterNewark Hospital05-01-2023 Miscellaneous Notes* Telephone Encounter - Nirmala [...] to [place]. Please advise pt. Pharmacy is [facility]. Cary Goldsmith LPN documented in this encounterNewark Hospital04-28-2023 History of Present illness Narrative* Ivette Price Jr., MD - 03/01/2023 10:20 AM EDT [...] foramina are patent. Pt cancelled appointment. Ivette Price MD documented in this encounterNewark Hospital04-28-2023 Miscellaneous Notes* Telephone Encounter - Anni Bianchi Sohail Pss - 03/01/2023 9:54 AM EDT PCP requesting the patient have a follow-up with MIKE. Spoke with the patient and she wasn't able to take the time available. The patient is scheduled for a follow-up appointment with the PA. The patient is aware of the appointment. documented in this encounterNewark Hospital04-27-2023 History of Present illness Narrative* Ivette [...] make a follow up appt with Dr Price after her imaging. She does notice some [...] Each by INTRAUTERINE route as directed. Ipratropium [place] (ATROVENT) 0.03 % nasal spray Use 2 Sprays in the nose every 12 hours. metroNIDAZOLE (METROGEL) 0.75 % Topical Gel Apply to affected area twice daily. [place]-3 Fatty Acids (FISH OIL) 500 mg cap Take 1 capsule by mouth once daily. blood sugar diagnostic (BLOOD GLUCOSE TEST) test strip Test blood sugar(s) 1 times daily. Dx: Type 2 DM - Controlled E11.9 Insulin: Yes Lancets lancets Test blood sugar(s) 1 times daily. Dx: Type 2 DM - Controlled E11.9 Insulin: No Sviqzsjm-Fg-Sep-Fe-FA tab Take 1 tablet by mouth once [...] Age of Onset Alcohol/Drug Mother Heart Father SD Cancer Father PANCREATIC CANCER Diabetes Father Coronary [...] BLD Ivette Grimes MD documented in this encounterNewark Hospital04-27-2023 History of Present illness Narrative* Little Perez RT(R) - 02/28/2023 8:00 AM EDT [...] 28, 2023 8:53 AM documented in this encounterNewark Hospital04-26-2023 Miscellaneous Notes* Telephone Encounter - Mirna [...] the provider could send her something to [facility] pharmacy just to take for tomorrow. Please call and advise. documented in this encounterNewark Hospital04-24-2023 Miscellaneous Notes* Telephone Encounter - Adriana [...] 02/28/23 Adriana Swanson MA documented in this encounterNewark Hospital04-14-2023 History of Present illness Narrative* Grace [...] visit. Either the patient or their legal screening representative has been informed of the risks [...] has been seeing a counselor at the [facility]. Has been working with him every 3 [...] which included preparing to see the patient, owac-fx-hwlf patient care, completing clinical documentation, and counseling and educating the patient/family/caregiver, ordering medications/labs, and communicating with other healthcare providers. Grace Coronel APRN.GABRIELA February 15, 2023 3:32 PM This note was partially generated using [employer] voice recognition system. Note was reviewed for accuracy. There may be minor misspellings or grammar miscues with [employer] voice recognition. documented in this encounterNewark Hospital04-12-2023 Miscellaneous Notes* Telephone Encounter - Nirmala Storey LPN - 02/13/2023 5:54 PM EDT Lengowt message sent to patient. * Telephone Encounter - Dennise Robles - 02/11/2023 8:56 AM EDT Message left for patient to return call for results. Dennise Robles * Telephone Encounter - Ivette Grimes MD - 02/11/2023 8:01 AM EDT Us is normal. No mass seen. If continues to have issues can consider ct of neck * Telephone Encounter - Quinn Lzao LPN - 02/09/2023 9:46 AM EDT Results of US head/neck soft tissue received from [facility] via fax. Results scanned into [employer]. (May takea few minutes before viewable in Epic.) Quinn Lazo LPN documented in this encounterNewark Hospital04-10-2023 Miscellaneous Notes* Telephone Encounter - Quinn Lazo LPN - 02/11/2023 1:15 PM EDT Patient phones requesting refills as follows: Requested Prescriptions Pending Prescriptions Disp Refills tiZANidine (ZANAFLEX) 4 mg tablet 20 tablet 0 Sig: Take 1 tablet by mouth every 8 hours as needed. APRIL 01/31/23 NOV 02/28/23 Please review and advise. Quinn Lazo LPN documented in this encounterNewark Hospital03-30-2023 Miscellaneous Notes* Telephone Encounter - Little Murphy Ma - 01/31/2023 10:31 AM EDT Faxed order to [facility] per patient's request * Telephone Encounter - Ivette Grimes MD - 01/31/2023 9:44 AM EDT While here patient has noted an intermittent "lump" in left neck. Slightly sore to touch. Comes andgoes. Is a nonspecific swelling on left posterior neck. Not sure is related to her fall. Will run throughregular us. Set up us at [facility]. Will run through regular insurance. documented in this encounterNewark Hospital03-30-2023 History of Present illness Narrative* Ivette [...] Each by INTRAUTERINE route as directed. Ipratropium [place]ane (ATROVENT) 0.03 % nasal spray Use 2 Sprays in the nose every 12 hours. metroNIDAZOLE (METROGEL) 0.75 % Topical Gel Apply to affected area twice daily. [place]-3 Fatty Acids (FISH OIL) 500 mg cap Take 1 capsule by mouth once daily. blood sugar diagnostic (BLOOD GLUCOSE TEST) test strip Test blood sugar(s) 1 times daily. Dx: Type 2 DM - Controlled E11.9 Insulin: Yes Lancets lancets Test blood sugar(s) 1 times daily. Dx: Type 2 DM - Controlled E11.9 Insulin: No Cizqjbwl-Sl-Sgp-Fe-FA tab Take 1 tablet by mouth once [...] Age of Onset Alcohol/Drug Mother Heart Father SD Cancer Father PANCREATIC CANCER Diabetes Father Coronary [...] above. Ivette Grimes MD documented in this encounterNewark Hospital03-23-2023 NoteHNO ID: [id number] Author: Gloria Oh MA Service: ? Author Type: Foundation Assistant Type: Progress Notes Filed: 01/24/2023 11:07 AM [...] and suicidal ideas. The patient is not nervous/anxious.[facility]03-23-2023 History of Present illness Narrative* Gloria Oh [...] The patient is not nervous/anxious. * Elle Rasheed MD - 01/15/2023 10:58 AM EDT Images from the original note were not included. [facility] General Name: Tori Gray : 1980 Purpose: Follow-up, discuss SPRINT Today's Date: 01/24/2023 Last Visit: 11/08/2022 ([employer] ENGINEER) Chief complaint: LEFT shoulder pain Tori Gray [...] No suspiciousactivity was identified. 01/24/2023 by Elle Rasheed MD Allergies: ALLERGIES Allergen Reactions Lidocaine Hives Steroids [Betametha* Hives Data Reviewed: Reviewed personally on today's date. Relevant Imaging: CT Cervical Spine 11/2022 MRI Left Shoulder 10/2021 ([facility]) Small GH effusion, small degenerative change posterior-inferior labrum (Per Dr. Guadarrama) MRI of the right shoulder from an [...] external rotation Special Tests: Non-painful (negative) Alexandra Raymundo'blanca Neuro-Lower: Neural Tension Signs: Negative slump in [...] was advised that they will need a straight truck driver for after the procedure and that if no straight truck driver is available and on site at the time of the procedure, the procedure will be cancelled. For any anticoagulants, the patient was advised on whether to continue or hold for this procedure. The patient expressed understanding and gave verbal consent to proceed. Medications: Refill: Continue Gabapentin as directed (PCP manages) Functional Jewish: Continue PT and TENs unit for pain [...] medical decision making from today's date. Elle Rasheed MD, MBA Pain Management [facility] documented in this encounterNewark Hospital03-21-2023 Instructions* Patient Instructions* Jenni Ledesma APRN.GABRIELA [...] the next 5 days. documented in this encounterNewark Hospital03-21-2023 History of Present illness Narrative* Karen Bansal APRN.MAINTAINER OPERATOR - 01/22/2023 11:22 AM EDT New Onabotulinum Toxin A (BotoxTM) for Migraine Indication: Chronic Intractable Migraine Treatment #: 1 Referral Expiration: 01/30/2023 Number of moderate-severe migraine days/month: 30 (daily) Number of mild migraine days/month: 0 Number of headache free days/month: 0 (0 headache-free hours) Migraine severity: 08/13 The patient has been assessed for disorders [...] for migraine Informed Consent Consent Obtained: Written [place] Protocol A moment to CARE was completed [...] applicable Written Consent Obtained: Written LOT #: [id number] Expiration Date: Month: 3 : 2024 Second vial: LOT #: [id number] Expiration Date: Month: 3 Year: 2024 Injection Sites Left (Units) Left (Sites) Right (Units) Right (Sites) TOTAL (Units) [employer] Professional 5 1 5 1 10 Procerus Units: [...] Amitriptyline Propranolol Topiramate/ Trokendi XL Jenni Ledesma APRN.MAINTAINER OPERATOR Attestation: I have reviewed the clinical details obtained and documented by JEANNIE Ledesma and I have participated in the santos components. I discussed the case and the management plans with JEANNIE Ledesam , and I fully agree with the [...] highlighting my impression and recommendations. Karen Bansal APRN.MAINTAINER OPERATOR documented in this encounterNewark Hospital03-16-2023 History of Past illness Narrative* Problem Noted Date Diagnosed Date Resolved Date Paresthesia 01/17/2023 12/09/2023 Closed head injury 11/27/2022 4 Chest pain 09/04/2022 09/04/2022 Contusion of knee [...] of this encounter (statuses as of 12/10/2023) [facility] History of Past illness Narrative* Problem [...] of this encounter (statuses as of 12/10/2023) [facility] History of Past illness Narrative* Problem [...] of this encounter (statuses as of 12/26/2023) [facility] History of Past illness Narrative* Problem [...] of this encounter (statuses as of 01/02/2024) [facility] History of Past illness Narrative* Problem [...] of this encounter (statuses as of 01/15/2024) [facility] History of Past illness Narrative* Problem [...] of this encounter (statuses as of 01/23/2024) [facility] History of Present illness Narrative* Ivette [...] to return to her second job at [employer] for one night and 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 She feels like the back of her neck feels "off." No cough or congestion. No sore throat or fever. Had a cold last week. Now better. MRI still not approved. She spoke with Gocella who states a C9 needs completed specifically [...] Each by INTRAUTERINE route as directed. Ipratropium [place]ane (ATROVENT) 0.03 % nasal spray Use 2 Sprays in the nose every 12 hours. [place]-3 Fatty Acids (FISH OIL) 500 mg cap Take 1 capsule by mouth once daily. blood sugar diagnostic (BLOOD GLUCOSE TEST) test strip Test blood sugar(s) 1 times daily. Dx: Type 2 DM - Controlled E11.9 Insulin: Yes Lancets lancets Test blood sugar(s) 1 times daily. Dx: Type 2 DM - Controlled E11.9 Insulin: No Isfmyokj-He-Pcv-Fe-FA tab Take 1 tablet by mouth once [...] Age of Onset Alcohol/Drug Mother Heart Father SD Cancer Father PANCREATIC CANCER Diabetes Father Coronary [...] 148/84 Pulse 70 Ht 170.2 cm (5' 7") Wt 128.8 kg (284 lb) LMP 11/22/2022 [...] S19.9XXD Ivette Grimes MD documented in this encounterNewark Hospital03-14-2023 NoteHNO ID: [id number] Author: Elle Rasheed MD Service: ? 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 01/24/2023 by Elle Rasheed MD Allergies: ALLERGIES Allergen Reactions Lidocaine Hives Steroids [Betametha* Hives Data Reviewed: Reviewed personally on today's date. Relevant Imaging: CT Cervical Spine 11/2022 MRI Left Shoulder 10/2021 ([facility]) Small GH effusion, small degenerative change posterior-inferior labrum (Per Dr. Guadarrama) MRI of the right shoulder from an [...] of Motion: Normal Scapulothoracic (more content not included)...[facility]03-10-2023 Miscellaneous Notes* Telephone Encounter - Nirmala Storey LPN - 01/11/2023 4:42 PM EST Request is closed. An override is in effect until 01/09/24. * Telephone Encounter - Mirna Santos Ma - 01/08/2023 4:55 PM EST PA was submitted through rx benefits Mirna Santos Ma documented in this encounterNewark Hospital03-09-2023 Miscellaneous Notes* Telephone Encounter - Nirmala [...] patient. Nirmala Storey LPN documented in this encounterNewark Hospital03-03-2023 History of Present illness Narrative* Ivette [...] Each by INTRAUTERINE route as directed. Ipratropium [place]ane (ATROVENT) 0.03 % nasal spray Use 2 Sprays in the nose every 12 hours. metroNIDAZOLE (METROGEL) 0.75 % Topical Gel Apply to affected area twice daily. [place]-3 Fatty Acids (FISH OIL) 500 mg cap Take 1 capsule by mouth once daily. blood sugar diagnostic (BLOOD GLUCOSE TEST) test strip Test blood sugar(s) 1 times daily. Dx: Type 2 DM - Controlled E11.9 Insulin: Yes Lancets lancets Test blood sugar(s) 1 times daily. Dx: Type 2 DM - Controlled E11.9 Insulin: No Utldihhu-To-Aot-Fe-FA tab Take 1 tablet by mouth once [...] Age of Onset Alcohol/Drug Mother Heart Father SD Cancer Father PANCREATIC CANCER Diabetes Father Coronary [...] R51.9 Ivette Grimes MD documented in this encounterNewark Hospital02-28-2023 Miscellaneous Notes* Telephone Encounter - Little Murphy Ma - 01/01/2023 3:02 PM EST Patient never checked in for her appointments as workers comp. Sent visits to [facility] to have C9 created and faxed [...] resubmit. Hailey Leone LPN documented in this encounterNewark Hospital02-23-2023 Miscellaneous Notes* Telephone Encounter - Anni Sauceda Pss - 12/27/2022 2:22 PM EST Received the [facility] C9 form. The patient was seen on 12/07/2022. The appointment was attached to the patient's insurance not a WC claim. Spoke with the patient and was given the information. PCP Dr. Grimes is the physican of records per the patient. Claim# [id number] Date of injury: 11/24/2022 Nolberto Walden RN [phone] Case management: Cristina # [phone] Left Cristina a message to fax information and to call the office. Requested WC report and DX allowed * Telephone Encounter - Jovana Blackwell MA - 12/26/2022 2:12 PM EST Spoke to Iram. Will send OV note to complete authorization of MRI order/payment of visit to [phone]. Iram is sending c9 form for provider to complete. Gave form to Anni Sauceda per Dr. Price's instructions. Jovana Blackwell MA * Telephone Encounter - Jovana Blackwell MA - 12/25/2022 10:18 AM EST TC to Iram. Unable to reach. Left detailed message on VM to return call to office & ask for atriage nurse. Please transfer to neurology back line at ext. [phone]. Jovana Blackwell MA * Telephone Encounter - Marilynn Frank LPN - 12/24/2022 3:28 PM EST Patient calling said her MRI's need to be prior authorized with Workman Vasiliy. Person name is lawrence number is [phone] works 8 am to 430 pm and fax number is [phone]. Patient claim number is [id number]. documented in this encounterNewark Hospital02-22-2023 Miscellaneous Notes* Telephone Encounter - Quinn Lazo LPN - 12/26/2022 11:41 AM EST Patient phones requesting refills as follows: Requested Prescriptions Pending Prescriptions Disp Refills tiZANidine (ZANAFLEX) 4 mg tablet 20 tablet 0 Sig: Take 1 tablet by mouth every 8 hours as needed. APRIL 12/26/22 NOV 01/04/23 Please review and advise. Quinn Lazo LPN documented in this encounterNewark Hospital02-22-2023 History of Present illness Narrative* Ivette [...] Each by INTRAUTERINE route as directed. Ipratropium [place]ane (ATROVENT) 0.03 % nasal spray Use 2 [...] 2 DM - Controlled E11.9 Insulin: No Yvsvfigp-Mi-Ciw-Fe-FA tab Take 1 tablet by mouth once daily. [place]-3 Fatty Acids (FISH OIL) 500 mg cap [...] Age of Onset Alcohol/Drug Mother Heart Father SD Cancer Father PANCREATIC CANCER Diabetes Father Coronary [...] 140/74 Pulse 83 Ht 170.2 cm (5' 7") Wt 128.4 kg (283 lb) LMP 11/22/2022 [...] until 01/07. 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 Recheck in one week. 2. Essential (primary) hypertension - ICD9: 401.9, ICD10: I10 - good control - Continue current medication(s) - Goal of BP <130/80 Ivette Grimes MD documented in this encounterNewark Hospital02-20-2023 Miscellaneous Notes* Telephone Encounter - Nakia Caraballo RN - 12/24/2022 5:22 PM EST Last OV: 07/19/22 Last Refill: 08/03/22 FU OV: 01/22/23 Appropriate for refill routed to for review Latonia Caraballo RN documented in this encounterNewark Hospital02-10-2023 History of Present illness Narrative* Ivette [...] continues to have any worsening. Saw Dr. Price (Neurology) on 12/07/22. MRI of brain and cervical spine ordered. Still waiting to schedule those. Conflicts over at [facility] with workers comp. Injury that prompted [...] Each by INTRAUTERINE route as directed. Ipratropium [place] Plane (ATROVENT) 0.03 % nasal spray Use 2 Sprays in the nose every 12 hours. metroNIDAZOLE (METROGEL) 0.75 % Topical Gel Apply to affected area twice daily. [place]-3 Fatty Acids (FISH OIL) 500 mg cap [...] 2 DM - Controlled E11.9 Insulin: No Fgqrkgii-By-Kvi-Fe-FA tab Take 1 tablet by mouth once [...] Age of Onset Alcohol/Drug Mother Heart Father SD Cancer Father PANCREATIC CANCER Diabetes Father Coronary [...] 160/98 Pulse 75 Ht 170.2 cm (5' 7") Wt 125.6 kg (277 lb) LMP 11/22/2022 [...] RTO in two weeks. documented in this encounterNewark Hospital02-07-2023 Miscellaneous Notes* Telephone Encounter - Ingrid Salmon Ma - 12/11/2022 9:55 AM EST Last office visit: 12/07/22 F/u scheduled: 12/14/22 Ingrid Salmon Ma documented in this encounterNewark Hospital02-03-2023 History of Present illness Narrative* Ivette [...] view their previous records. documented in this encounterNewark Hospital02-03-2023 History of Present illness Narrative* Ivette Price Jr., MD - 12/07/2022 4:39 PM EST [...] BP. Check CMP and CBC due to intermediate manager med use. 3. LETITIA (obstructive sleep apnea) [...] when sleepy. Advised pt to avoid ozone i&c technician. Patient now referred for NEW complaint of head trauma. ER notes and PCP notes reviewed. Per PCP note of 11/27/22: Patient presents today for office visit for ER F/U from [facility] 11/24/22. Head injury after fall. Cleaning [...] Appears pt had CT brain x2 at [facility] that were both unremarkable. Pt also previously referred to headache center to perform botox -- scheduled to get injections by January 2023. Note records show that pt has seen cards (EP) for QT prolongation concerns. Pt states on 11/24/22 was working at [facility] was doing a discharge, when bedside [...] Each by INTRAUTERINE route as directed. Ipratropium [place] Plane (ATROVENT) 0.03 % nasal spray Use 2 Sprays in the nose every 12 hours. blood sugar diagnostic (BLOOD GLUCOSE TEST) test strip Test blood sugar(s) 1 times daily. Dx: Type 2 DM - Controlled E11.9 Insulin: Yes Lancets lancets Test blood sugar(s) 1 times daily. Dx: Type 2 DM - Controlled E11.9 Insulin: No Kvtvgouu-Sb-Iqn-Fe-FA tab Take 1 tablet by mouth once daily. metroNIDAZOLE (METROGEL) 0.75 % Topical Gel Apply to affected area twice daily. (Patient not taking: Reported on 12/07/2022) [place]-3 Fatty Acids (FISH OIL) 500 mg cap Take 1 capsule by mouth once daily. (Patient taking differently: Take 1 tablet by mouth once daily. 1200 mg) HISTORIES PAST MEDICAL HISTORY Diagnosis Date Acute cholecystitis Cholecystitis Anxiety 06/07/2014 Chronic back pain Kidney stones LETITIA treated with BiPAP Type 2 diabetes mellitus (HCC) FAMILY HISTORY Problem Relation Age of Onset Alcohol/Drug Mother Heart Father SD Cancer Father PANCREATIC CANCER Diabetes Father Coronary [...] No other recommendations at this time. Ivette Price MD I spent a total of 45 minutes on the date of the service which included preparing to see the patient, gfvc-ug-xbqg patient care, completing clinical documentation, obtaining and/or reviewing separately obtained history, performing a medically appropriate examination, counseling and educating the pat ient/family/caregiver, ordering medications, tests, or procedures, and communicating results to thepatient/family/caregiver. documented in this encounterNewark Hospital01-31-2023 Miscellaneous Notes* Telephone Encounter - Marilynn Frank LPN - 12/04/2022 9:52 AM EST [facility] asking for copy of 11/27/2022 office visit notes and copy of letter off work to be faxed to [phone] with claim number [id number]. Printed and faxed as requested. documented in this encounterNewark Hospital01-30-2023 Miscellaneous Notes* Telephone Encounter - Ivette [...] agreeable. Mechelle Velasquez RN documented in this encounterNewark Hospital01-27-2023 History of Present illness Narrative* Ivette [...] sore but is overall ok. Her nerve "block" is now on hold. MEDICATIONS: Current Outpatient [...] Each by INTRAUTERINE route as directed. Ipratropium [place] Plane (ATROVENT) 0.03 % nasal spray Use 2 Sprays in the nose every 12 hours. metroNIDAZOLE (METROGEL) 0.75 % Topical Gel Apply to affected area twice daily. [place]-3 Fatty Acids (FISH OIL) 500 mg cap [...] 2 DM - Controlled E11.9 Insulin: No Bwjkzglh-Io-Ohw-Fe-FA tab Take 1 tablet by mouth once [...] Age of Onset Alcohol/Drug Mother Heart Father SD Cancer Father PANCREATIC CANCER Diabetes Father Coronary [...] ICD10: S06.0X9A Ivette Grimes documented in this encounterNewark Hospital01-26-2023 Miscellaneous Notes* Telephone Encounter - Elle Rasheed MD - 11/29/2022 2:50 PM EST Sorry to hear about the injury. A concussion would not require a cancellation in and of itself. However, if she has concerns that the bright lights of the hospital, travel, sounds, etc., would aggravate her condition, then it would be reasonable to reschedule. Elle Rasheed III, MD, SULEIMAN * Telephone Encounter - Darrion Barahona - 11/29/2022 2:30 PM EST Patient has left a voicemail stating that she had fallen over the weekend and has a concussion. Sheis wondering if she should reschedule her appointment for 12/05/22 with you in [place] as she is not sure if this will effect her. Please advise. Darrion Pablo documented in this encounterNewark Hospital01-24-[address] Callejas [facility] November 27, 2022 6:34pm Note Date/Time November 27, 2022 3 :56pm [facility] Medical Records Department [address] [place] [address] Emergency Department Summary 11/27/22 MR#: [id number] Acct: [id number] Name: TORI GRAY Rep #:[id number] : 1980 42 From: Tod Callejas MD [...] other symptoms consistent with a viral illness. [facility] Medical History Acute bronchitis Acute cholecystitis [...] #10 ea 04/26/20 [History Last Taken Unknown] jzmajpul-nvy-Uj-FA 1 mg capsule 1 cap PO DAILY [...] concussion Instructions: ED Concussion Prescriptions: No Action wmduwxvt-oyx-Mu-FA 1 mg capsule 1 mg capsule 1 [...] your Primary Care Provider. Call [facility] ([phone]) or report to the closest Emergency Room. Call 911 if necessary. 11/27/22 1834 <Electronically signed by Tod Callejas MD> Cosigner Signature (if applicable): CC: Dr. Ivette Grimes MD ~ Signed [facility] Work Phone: 1(754) 303-287801-24-2023 History of Present illness Narrative* Ivette Grimes MD - 11/27/2022 1:48 PM EST Patient presents with: ER F/U HPI: Patient presents today for office visit for ER F/U from [facility] 11/24/22. Head injury after fall. Cleaning [...] Each by INTRAUTERINE route as directed. Ipratropium [place] Plane (ATROVENT) 0.03 % nasal spray Use 2 Sprays in the nose every 12 hours. metroNIDAZOLE (METROGEL) 0.75 % Topical Gel Apply to affected area twice daily. [place]-3 Fatty Acids (FISH OIL) 500 mg cap [...] 2 DM - Controlled E11.9 Insulin: No Qmwsyntz-Gh-Exv-Fe-FA tab Take 1 tablet by mouth once [...] Age of Onset Alcohol/Drug Mother Heart Father SD Cancer Father PANCREATIC CANCER Diabetes Father Coronary [...] 150/84 Pulse 75 Ht 170.2 cm (5' 7") Wt 123.8 kg (273 lb) LMP 04/07/2022 [...] S06.0X9A Ivette Grimes MD documented in this encounterNewark Hospital01-20-2023 Miscellaneous Notes* Telephone Encounter - Quinn [...] advise. Quinn Lazo LPN documented in this encounterNewark Hospital01-12-2023 Miscellaneous Notes* Telephone Encounter - Jumana Harrell LPN - 11/15/2022 8:34 AM EST Patient phones requesting refills as follows: Requested Prescriptions Pending Prescriptions Disp Refills tiZANidine (ZANAFLEX) 4 mg tablet 20 tablet 0 Sig: Take 1 tablet by mouth every 8 hours as needed. APRIL-09/04/22 Labs-09/06/22 NOV-12/06/22 med filled 10/05/22 Please review and advise. Jumana Harrell LPN documented in this encounterNewark Hospital01-05-2023 NoteHNO ID: [id number] Author: Adelina Marinelli APRN.MAINTAINER OPERATOR Service: ? Author Type: Nurse Practitioner Type: Progress Notes Filed: 11/08/2022 1:55 PM Note Text: [facility] Today's Date: 11/08/2022 Last Visit: 07/19/22 Name: Tori Gray : 1980 Chief complaint: LEFT shoulder pain History of Present Illness: Since last encounter, Rosiechelsey Love Gray; reports that the chronic problem(s) detailed [...] suspicious activity was identified. 11/08/2022 by Adelina Marinelli APRN.MAINTAINER OPERATOR Allergies: ALLERGIES Allergen Reactions Lidocaine Hives Steroids [Betametha* Hives Data Reviewed: Reviewed personally on today's date 11/08/2022 Relevant Imaging: MRI C-Spine 08/2021 ([facility]): Very mild degenerative changes MRI L-spine 11/2021 ([facility]): Very mild degenerative changes. Facet arthropathy at L1-2 through L5-S1. MRI Left Shoulder 10/2021 ([facility]): Small GH effusion, small degenerative change posterior-inferior labrum (Per Dr. Guadarrama) MRI of the right shoulder from an [...] pain (primary encounter deepali (more content not included)...[facility] 11-08-2022 NoteHNO ID: [id number] Author: Gloria Oh MA Service: ? Author Type: Foundation Assistant Type: Progress Notes Filed: 11/08/2022 1:55 PM [...] and suicidal ideas. The patient is not nervous/anxious.[facility]01-05-2023 Miscellaneous Notes* Telephone Encounter - Vito PaLidia [...] No 9. Does this procedure require a straight truck driver? Yes If yes, has patient been notified that a straight truck driver is needed and must be [...] COVID vaccine.) Vito Mancera documented in this encounterNewark Hospital01-05-2023 Instructions* Patient Instructions* Adelina Marinelli APRN.CNP - 11/08/2022 1:54 PM EST Activity as tolerated Use Ice and/or heat as tolerated as needed documented in this encounterNewark Hospital01-05-2023 History of Present illness Narrative* Adelina Marinelli APRN.CNP - 11/08/2022 1:30 PM EST Images from the original note were not included. [facility] Today's Date: 11/08/2022 Last Visit: 07/19/22 [...] No suspiciousactivity was identified. 11/08/2022 by Adelina Marinelli APRN.MAINTAINER OPERATOR Allergies: ALLERGIES Allergen Reactions Lidocaine Hives Steroids [Betametha* Hives Data Reviewed: Reviewed personally on today's date 11/08/2022 Relevant Imaging: MRI C-Spine 08/2021 ([facility]): Very mild degenerative changes MRI L-spine 11/2021 ([facility]): Very mild degenerative changes. Facet arthropathy at L1-2 through L5-S1. MRI Left Shoulder 10/2021 ([facility]): Small GH effusion, small degenerative change posterior-inferior labrum (Per Dr. Guadarrama) MRI of the right shoulder from an [...] Continue Gabapentin as directed (PCP manages) Functional Jewish: Continue PT and TENs unit for pain relief Additional Studies: Referrals: Additional: Follow up with Dr. Rasheed after injection Consider SPRINT PNS Patient is [...] medical decision making from today's date. Adelina Marinelli APRN.GABRIELA Pain Management [facility] * Gloria Oh MA - [...] patient is not nervous/anxious. documented in this encounterNewark Hospital12-09-2022 Instructions* Patient Instructions* Grace Coronel APRN.CNP - 10/12/2022 9:28 AM EST Power Monge, It was good to meet and talk with you today. Below is a summary of the plan that we discussed during your appointment for reference. Of course, if you have any questions or concerns do not hesitate to reach out to me via a message or call. Grace Khan APRN.CNP PLAN AND FOLLOW UP: YOU SHOULD [...] - Call the National Suicide Hotline at 6-112-QZDFYDW ( ) or 6-568-921-TALK (3595) - Text 4HWBS to 184200 Medication Update: - Prozac 10 mg - take 1 capsule once daily for 7 days; then take 2 capsules once daily after that. Next appointment: --Schedule in 4 to 6 weeks or sooner if needed -- You may call the department appointment line at [phone] to schedule your appointment. -- Please call my nurse Coretta at [phone] or send me a message in [employer] with any questions or concerns between appointments. documented in this encounterNewark Hospital12-09-2022 History of Present illness Narrative* Grace [...] They get along well. 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 REFERRAL SOURCE: PCP - Dr. Grimes CHIEF COMPLAINT: My PCP and I have been talking and I have a lot going on. I tried to get in with a therapist and it was hard." HPI: Today Tori shares that she is [...] report that daughter has support from her utility operator and therapist and has been doing better. [...] not think that it isat baseline. Guilt: "a bit". For not catching her daughter's problem. Glad [...] current PAP mask.) 1 Device 99 Ipratropium [place] Plane (ATROVENT) 0.03 % nasal spray Use 2 Sprays in the nose every 12 hours. 1 Bottle2 metroNIDAZOLE (METROGEL) 0.75 % Topical Gel Apply to affected area twice daily. 45 g 2 [place]-3 Fatty Acids (FISH OIL) 500 mg cap Take 1 capsule by mouth once daily. 30 capsule 11 blood sugar diagnostic (BLOOD GLUCOSE TEST) test strip Test blood sugar(s) 1 times daily. Dx: Type 2 DM - Controlled E11.9 Insulin: Yes 50 Strip 11 Lancets lancets Test blood sugar(s) 1 times daily. Dx: Type 2 DM - Controlled E11.9 Insulin: No 100Each 11 Kmdkvyjh-Uo-Jrl-Fe-FA tab Take 1 tablet by mouth once daily. 0 No current facility-administered medications for this visit. VITAL SIGNS: There were no vitals filed for this visit. ROS: All other systems negative. PSYCHIATRIC HISTORY: Prior Diagnosis: Generalized Anxiety Disorder, and Depression Prior Provider: No prior psychiatrist Therapist: Previously followed at the counseling center. Stopped during the pandemic. Current Occupational Nurse: No Last Hospitalization: Denies hospitalization. ECT: No Previous Discontinued Psychiatric Med Trials: Ativan as needed PRN. Paxil, Buspar (low dose), Wellbutrin SUBSTANCE USE HISTORY: Nicotine: None Caffeine: Mert, 1/day Alcohol: No history of use or dependence Marijuana: No history of use or dependence Cocaine: No history of use or dependence Opiods: No history of use or dependence SPIRITUALITY: [facility]: Tori Gray is the oldest of 2 siblings. Her brother lives in [place]. The patient was born in [place] and raised in [place], [place]. She completed Associates degree in psychology. [...] which included preparing to see the patient, jhfq-uc-nfyb patient care, completing clinical documentation, obtaining and/or reviewing separately obtained history, counseling and educating the patient/family/caregiver, ordering medications, ananth ts, or procedures, communicating with other HCPs (not separately reported), and independently interpreting results (not separately reported). ADD ON PSYCHOTHERAPY CODE : No SIGNATURE: Grace Coronel APRN.CNP PATIENT NAME: Tori Gray DATE: October 12, 2022 TIME: 8:40 AM PAGER : documented in this [facility]12-[facility]-2022 Miscellaneous Notes* Telephone Encounter - Mariaa Ambrosio, LEVAR - 10/09/2022 8:44 AM EST Patient has been identified by name and date of : Yes Patient phones for refill(s): Requested Prescriptions Pending Prescriptions Disp Refills topiramate (TOPAMAX) 100 mg tablet 60 tablet 2 Sig: Take 1 tablet by mouth twice daily. Date of last office visit in primary care: APRIL 07/19/2022 with Karen Bansal APRN.MAINTAINER OPERATOR No appointment scheduled [facility] Notes: Plan: All options for treatment [...] (269 lb) Please advise. Thank you. LEVAR Jasimne documented in this encounterNewark [facility]12-02-2022 Miscellaneous Notes* Telephone Encounter - Quinn Lazo LPN - 10/05/2022 8:41 AM EST Patient phones requesting refills as follows: Requested Prescriptions Pending Prescriptions Disp Refills tiZANidine (ZANAFLEX) 4 mg tablet 20 tablet 0 Sig: Take 1 tablet by mouth every 8 hours as needed. [facility] 09/04/22 NOV 11/01/22 Please review and advise. Quinn Lazo LPN documented in this encounterNewark Hospital11-29-2022 Miscellaneous Notes* Telephone Encounter - Adriana Licona - 10/02/2022 11:32 AM EST Patient was called back and spoke with and scheduled with Adelina in [place] beginning of the year. Adriana Licona * Telephone Encounter - Adriana Licona - 10/02/2022 11:22 AM EST Patient called in leaving a voicemail stating she had an appointment with Adelina romero in Jul. Insurance denied the RFA and was needing to finds out what else she can do? Adriana Licona documented in this encounterNew[facility]11-16-2022 Miscellaneous Notes* Telephone Encounter - Lubna [...] you. Lubna Yoon LPN documented in this encounterNewark Hospital11-09-2022 History of Present illness Narrative* [place] Tesfaye - 09/12/2022 1:57 PM EST BEHAVIORAL HEALTH SOCIAL WORK QUICK NOTE Provider Action/FYI Needs appointment scheduled with Grace Coronel CNP. Will forward chart to Grace and her AIRCRAFT MACHINIST to assist with scheduling. Patient identified for [facility] from: PCP Reason for referral: Resources Behavioral Health Resources: Psychiatry med management;Psychology - talk therapy [facility] encounter type: Chart Review Attempts to Outreach: 1 attempt Referral made: Psychiatry - Internal;Psychology - External;Psychology - Internal Psychiatry-Internal referral type: Medication Management Psychology-Internal referral type: Therapy Psychology-External referral type: Therapy Reason for external referral: Wait times at [facility] too long Final Disposition: Resources given Patient Discharged?: Yes Patient reported that caregiver was able to meet their needs today?: N/A Pt identified by name and . Patient [facility], specifically Grace Coronel CNP at therequest of pt's PCP. SW will route chart to Grace and her nurse, Coretta Spain who can assist with patient scheduling. Patient states she's on a wait list for counseling at agencies near her home. No needs further from this SW at this time. [place] Tesfaye, ACM-SW documented in this encounterNewark Hospital11-09-2022 Miscellaneous Notes* Addendum Note - Ivette Grimes MD - 09/12/2022 1:19 PM ESTAddended by: IVETTE GRIMES on: 09/12/2022 01:19 PM Modules accepted: Orders * Telephone Encounter - Ivette Grimes MD - 09/12/2022 1:18 PM EST Needs set up with Grace documented in this encounterNewark Hospital11-03-2022 Miscellaneous Notes* Telephone Encounter - Nakia Caraballo RN - 09/06/2022 12:44 PM EDT Patient is scheduled for botox on 09/13/22 at 1:30 pm with Kaylen. Latonia Caraballo RN documented in this encounterNewark Hospital11-01-2022 Miscellaneous Notes* Telephone Encounter - Jovana Blackwell MA - 09/04/2022 3:01 PM EDT Clarified with patient [facility] will be receiving 2 new providers able to administer injections. Patient will continue with plan to stay within [facility] for injections & just follow up in [place] when neuro providers are available to schedule. Jovana Blackwell MA documented in this encounterNewark Hospital11-01-2022 History of Past illness Narrative* Problem [...] of this encounter (statuses as of 09/04/2022) [facility] Narrative* Problem [...] of this encounter (statuses as of 09/04/2022) [facility] Narrative* Problem [...] of this encounter (statuses as of 09/06/2022) [facility] Narrative* Problem [...] of this encounter (statuses as of 09/07/2022) [facility] Narrative* Problem [...] of this encounter (statuses as of 09/12/2022) [facility] Narrative* Problem [...] of this encounter (statuses as of 09/12/2022) [facility] Narrative* Problem [...] of this encounter (statuses as of 09/12/2022) [facility] Narrative* Problem [...] of this encounter (statuses as of 09/19/2022) [facility] Narrative* Problem [...] of this encounter (statuses as of 10/02/2022) [facility] Narrative* Problem [...] of this encounter (statuses as of 10/05/2022) [facility] Narrative* Problem [...] of this encounter (statuses as of 10/09/2022) [facility] Narrative* Problem [...] of this encounter (statuses as of 10/18/2022) [facility] Narrative* Problem [...] of this encounter (statuses as of 10/21/2022) [facility] Narrative* Problem [...] of this encounter (statuses as of 11/09/2022) [facility] Narrative* Problem [...] of this encounter (statuses as of 11/15/2022) [facility] Narrative* Problem [...] of this encounter (statuses as of 11/21/2022) [facility] Narrative* Problem [...] of this encounter (statuses as of 11/23/2022) [facility] Narrative* Problem [...] of this encounter (statuses as of 11/27/2022) [facility] Narrative* Problem [...] of this encounter (statuses as of 11/29/2022) [facility] Narrative* Problem [...] of this encounter (statuses as of 11/30/2022) [facility] Narrative* Problem [...] of this encounter (statuses as of 12/04/2022) [facility] Narrative* Problem [...] of this encounter (statuses as of 12/08/2022) [facility] Narrative* Problem [...] of this encounter (statuses as of 12/08/2022) [facility] Narrative* Problem [...] of this encounter (statuses as of 12/11/2022) [facility] Narrative* Problem [...] of this encounter (statuses as of 12/11/2022) [facility] Narrative* Problem [...] of this encounter (statuses as of 12/14/2022) [facility]arrative* Problem [...] of this encounter (statuses as of 12/21/2022) [facility]arrative* Problem [...] of this encounter (statuses as of 12/25/2022) [facility]* Problem [...] of this encounter (statuses as of 12/26/2022) [facility]* Problem [...] of this encounter (statuses as of 12/26/2022) [facility]* Problem [...] of this encounter (statuses as of 01/04/2023) [facility]* Problem [...] of this encounter (statuses as of 01/07/2023) [facility]* Problem [...] of this encounter (statuses as of 01/10/2023) [facility]* Problem [...] of this encounter (statuses as of 01/11/2023) [facility]* Problem [...] of this encounter (statuses as of 01/15/2023) [facility]* Problem [...] of this encounter (statuses as of 01/17/2023) [facility]* Problem [...] of this encounter (statuses as of 01/22/2023) [facility]* Problem [...] of this encounter (statuses as of 01/24/2023) [facility]* Problem [...] of this encounter (statuses as of 01/31/2023) [facility]* Problem [...] of this encounter (statuses as of 01/31/2023) [facility]* Problem [...] of this encounter (statuses as of 02/11/2023) [facility]* Problem [...] of this encounter (statuses as of 02/14/2023) [facility]* Problem [...] of this encounter (statuses as of 02/16/2023) [facility]* Problem [...] of this encounter (statuses as of 02/25/2023) [facility]* Problem [...] of this encounter (statuses as of 02/27/2023) [facility]* Problem [...] of this encounter (statuses as of 02/28/2023) [facility]* Problem [...] of this encounter (statuses as of 03/01/2023) [facility]* Problem [...] of this encounter (statuses as of 03/01/2023) [facility]* Problem [...] of this encounter (statuses as of 03/04/2023) [facility]* Problem [...] of this encounter (statuses as of 03/05/2023) [facility]* Problem [...] of this encounter (statuses as of 03/05/2023) [facility]* Problem [...] of this encounter (statuses as of 03/05/2023) [facility]* Problem [...] of this encounter (statuses as of 03/13/2023) [facility]* Problem [...] of this encounter (statuses as of 03/20/2023) [facility]* Problem [...] of this encounter (statuses as of 03/20/2023) [facility]* Problem [...] of this encounter (statuses as of 04/05/2023) [facility]* Problem [...] of this encounter (statuses as of 05/08/2023) [facility]* Problem [...] of this encounter (statuses as of 05/17/2023) [facility]* Problem [...] of this encounter (statuses as of 05/29/2023) [facility]* Problem [...] of this encounter (statuses as of 05/30/2023) [facility]* Problem [...] of this encounter (statuses as of 06/06/2023) [facility]* Problem [...] of this encounter (statuses as of 06/08/2023) [facility]* Problem [...] of this encounter (statuses as of 06/10/2023) [facility]* Problem [...] of this encounter (statuses as of 06/22/2023) [facility]* Problem [...] of this encounter (statuses as of 07/05/2023) [facility]* Problem [...] of this encounter (statuses as of 07/09/2023) [facility]* Problem [...] of this encounter (statuses as of 08/23/2023) [facility]* Problem [...] of this encounter (statuses as of 08/26/2023) [facility]* Problem [...] of this encounter (statuses as of 09/08/2023) [facility]* Problem [...] of this encounter (statuses as of 09/10/2023) [facility]* Problem [...] of this encounter (statuses as of 09/25/2023) [facility]* Problem [...] of this encounter (statuses as of 10/14/2023) [facility]* Problem [...] of this encounter (statuses as of 10/15/2023) [facility]* Problem [...] of this encounter (statuses as of 10/16/2023) [facility] N[facility]ative* Problem [...] of this encounter (statuses as of 12/06/2023) [facility] Instructions* Patient Instructions* Ivette Grimes MD - 09/04/2022 12:13 PM EDT Counseling and Psychiatry Services [facility] [address] [place] [address] *counseling [facility] [address], [facility] [address] *counseling [address] [address] *counseling [facility] [address] [place] [address] *counseling and psychiatry [place] [id number] [place], [place] [address] *counseling [address] [address] *counseling [place] [facility] [phone] *counseling [address] [address] *counseling [facility] [address] [place], [place] [id number] [facility] [address] [place] [address] *counseling [facility] [address] [place] [address] [facility] [address] [place], [place] [address] *counseling [facility] [address] [facility] [address] [place] [address] [facility] [facility] [address] [place] [address] *counseling [employer] [address] [place] [address] *counseling [facility] [address] [place], [place] [id number] *counseling and psychiatry [facility], [facility] [address] [facility] [address] [place], [place] [address] *psychiatry [facility] [phone] *grief counseling, individual and groups *If you ever experience a mental health crisis please call [phone], 911, Please verify with insurance provider for coverage Provide services on a sliding fee scale for [facility] residents. [address] [phone] *Counseling [facility] [address] [place], [place] [phone] *Counseling, Psychiatry and Case Management [id number] [place], [place] [address] *Counseling [address] [address] *Counseling [address] [place], [place] [phone] *Counseling [facility] [address] [place] [address] *Counseling [facility] [address] [place], [place] [phone] *Counseling/mental health and substance use treatment [facility] [address] [place], [place] [address] [address] [place], [place] [address] [facility] [address] [place] [address] *Addiction services, services for victims of domestic violence and sexual assault, housing services [facility] -safe, alcohol and drug free environment [facility] [phone] *free grief services, individual and group *If you ever experience a mental health crisis please contact [phone], 911 or go to the nearest ER. Please verify with insurance provider for coverage documented in this encounterNewark Hospital11-01-2022 History of Present illness Narrative* Ivette [...] for depression. Was seen by cardiology in [place] who referred her to EPS. Appt is [...] in bed with current PAP mask. Ipratropium [place] (ATROVENT) 0.03 % nasal spray Use 2 Sprays in the nose every 12 hours. metroNIDAZOLE (METROGEL) 0.75 % Topical Gel Apply to affected area twice daily. [place]-3 Fatty Acids (FISH OIL) 500 mg cap Take 1 capsule by mouth once daily. blood sugar diagnostic (BLOOD GLUCOSE TEST) test strip Test blood sugar(s) 1 times daily. Dx: Type 2 DM - Controlled E11.9 Insulin: Yes Lancets lancets Test blood sugar(s) 1 times daily. Dx: Type 2 DM - Controlled E11.9 Insulin: No Lvprpfly-Dy-Jem-Fe-FA tab Take 1 tablet by mouth once [...] Age of Onset Alcohol/Drug Mother Heart Father SD Cancer Father PANCREATIC CANCER Diabetes Father Diabetes [...] 160/80 Pulse 74 Ht 170.2 cm (5' 7") Wt 123.1 kg (271 lb 6.4 oz) [...] treatment. Ivette Grimes MD documented in this encounterNewark Hospital10-31-2022 History of Present illness Narrative* Ivette [...] in bed with current PAP mask. Ipratropium [place] (ATROVENT) 0.03 % nasal spray Use 2 Sprays in the nose every 12 hours. metroNIDAZOLE (METROGEL) 0.75 % Topical Gel Apply to affected area twice daily. [place]-3 Fatty Acids (FISH OIL) 500 mg cap Take 1 capsule by mouth once daily. blood sugar diagnostic (BLOOD GLUCOSE TEST) test strip Test blood sugar(s) 1 times daily. Dx: Type 2 DM - Controlled E11.9 Insulin: Yes Lancets lancets Test blood sugar(s) 1 times daily. Dx: Type 2 DM - Controlled E11.9 Insulin: No Wkqigbwo-Xp-Keg-Fe-FA tab Take 1 tablet by mouth once [...] Age of Onset Alcohol/Drug Mother Heart Father SD Cancer Father PANCREATIC CANCER Diabetes Father Diabetes [...] in am in person documented in this encounterNewark Hospital10-18-2022 Miscellaneous Notes* Telephone Encounter - Nakia Caraballo RN - 08/21/2022 1:02 PM EDT Botox approved 08/15/22-01/30/23. Patient made aware that we will get her scheduled. Latonia Caraballo RN documented in this encounterNewark Hospital10-05-2022 Miscellaneous Notes* Telephone Encounter - Adelina Marinelli APRN.CNP - 08/08/2022 12:53 PM EDT Please advise patient insurance will not approve the RFA of her shoulder. Another option would be to repeat the LEFT scapular NB, but with steroids for a therapeutic effect. If she would like to proceed with this option please let me know and will place the order. Thank you, Adelina Marinelli APRN.GABRIELA documented in this encounterNewark Hospital10-05-2022 Miscellaneous Notes* Telephone Encounter - Brittney Cueto - 08/08/2022 10:08 AM EDT Spoke with the patient she has not heard back from [facility] will try them again if not able to reach them she will call [facility] back to schedule. documented in this encounterNewark Hospital09-30-2022 Miscellaneous Notes* Telephone Encounter - Karen Bansal APRN.CNP - 08/03/2022 10:33 AM EDT Rizatriptan sent to pharmacy. Stop sumatriptan. * Telephone Encounter - Nakia Caraballo RN - 08/03/2022 9:03 AM EDT Patient reporting that sumatriptan is not helping migraines. Asking for another treatment. Botox referral was sent but still pending. Latonia Caraballo RN documented in this encounterNewark Hospital09-29-2022 History of Present illness Narrative* Ivette [...] her cpap. Needs new machine. 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 . Will be seeing cardiology. Had [...] in bed with current PAP mask. Ipratropium [place] (ATROVENT) 0.03 % nasal spray Use 2 Sprays in the nose every 12 hours. metroNIDAZOLE (METROGEL) 0.75 % Topical Gel Apply to affected area twice daily. [place]-3 Fatty Acids (FISH OIL) 500 mg cap Take 1 capsule by mouth once daily. blood sugar diagnostic (BLOOD GLUCOSE TEST) test strip Test blood sugar(s) 1 times daily. Dx: Type 2 DM - Controlled E11.9 Insulin: Yes Lancets lancets Test blood sugar(s) 1 times daily. Dx: Type 2 DM - Controlled E11.9 Insulin: No Lqadmodm-Hq-Xnb-Fe-FA tab Take 1 tablet by mouth once [...] Age of Onset Alcohol/Drug Mother Heart Father SD Cancer Father PANCREATIC CANCER Diabetes Father Diabetes [...] RTO in six months documented in this encounterNewark Hospital09-28-2022 Miscellaneous Notes* Telephone Encounter - Nakia Caraballo RN - 08/01/2022 1:21 PM EDT Botox referral sent to pharmacy. Latonia Caraballo RN documented in this encounterNewark Hospital09-19-2022 Miscellaneous Notes* Telephone Encounter - Dayanna [...] 07/2022 Last refill: 07/2021 documented in this encounterNewark Hospital09-15-2022 Instructions* Patient Instructions* Gabi Cornelius APRN.GABRIELA [...] Feverfew: Feverfew is a common garden herb assinibo[place] and sioux to [place] and popular in [place] [...] pepperoni, Pickled leblanc Pods of broad jaquez (Hong Konger beans, Amharic pea pods, Spanish (antwan) beans, saldana and navy beans Ripe avocado, ripe banana Yeast extracts or active yeast preparations such as Tabor's or Mirlande's (commercial bakes goodsare permitted) Tomato based foods, pizza (lasagna, etc.) MSG (monosodium glutamate) is disguised as many things; look for these common aliases: Monopotassium glutamate Autolysed yeast Hydrolysed protein Sodium caseinate flavorings all natural preservatives" Nutrasweet Avoid all other foods that convincingly [...] too muchlight. These can be obtained at [employer] or [employer]: see list above. 2. Limit use of acute treatments (rrvw-xfa-dblujna medications, triptans, etc.) to no more than [...] and quiet environment. Relax and reduce stress. Wicbwlo7Whrbf is a free félix that can instruct you on some simple relaxtionand breathing techniques. Http://Gallery [employer] is a free website that provides teaching [...] is no testing that will reveal this "dysfunctional electrical circuitry" suchon MRI, or other testing. We try [...] ensuing treatment plans will be released via [employer] and discussedduring your follow-up appointment. [employer]: Please ask the schedulers to give you an activation code. The main way of communication isby [employer] rather than phone lines, so if you have not signed up, please do so. [employer] is also theway that you can review your labs and testing. We are not able to contact everyone to tell them results are normal. If you do not hear back from us regarding testing you have had, it should be considered normal or within normal range. If you have any questions about the results, you are free to message us. [employer] is meant for simple questions regarding medications, possible side effects, or other simplestraight forward questions in limited sentences, rather than multiple paragraphs of discussion. [employer] is not meant for, or efficient for [...] do not comment on most testing on [employer] in a message or commentary unless there is a concern. You will not receive a message from me of the result unless there is a specific concern of the result I need you to address further in care with us or your primary medical team. Make sure to check your my chart email or félix. documented in this encounterNewark Hospital09-15-2022 History of Present illness Narrative* Karen Bansal APRN.CNP - 07/19/2022 1:00 PM EDT Images from the original note were not included. [facility] General Neurology New Patient Headache Evaluation [...] Description Onset: Early 30's. 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 Denies upon wakening. Total headache days per month: 14 per month Total headache attacks per month: 14 per month Headache free days: Yes- 3 days Duration of attacks: 4- 6 hours Severity of headaches? moderate- severe Onset to Peak: 2 hours Location: temporal region bilateral and rarely occipital Aura: None Prodrome: none. Accompanying symptoms: Has had photophobia and nausea previously. Quality: aching/pressure/ "annoying" Worse with activity: No Triggers: weather changes. [...] Outside imaging reviewed Lab work obtained from [facility] and reviewed Blood studies 02/07/2022 Hemoglobin [...] Age of Onset Alcohol/Drug Mother Heart Father SD Cancer Father PANCREATIC CANCER Diabetes Father Diabetes [...] in bed with current PAP mask. Ipratropium [place] Plane (ATROVENT) 0.03 % nasal spray Use 2 Sprays in the nose every 12 hours. metroNIDAZOLE (METROGEL) 0.75 % Topical Gel Apply to affected area twice daily. [place]-3 Fatty Acids (FISH OIL) 500 mg cap Take 1 capsule by mouth once daily. blood sugar diagnostic (BLOOD GLUCOSE TEST) test strip Test blood sugar(s) 1 times daily. Dx: Type 2 DM - Controlled E11.9 Insulin: Yes Lancets lancets Test blood sugar(s) 1 times daily. Dx: Type 2 DM - Controlled E11.9 Insulin: No Qttrzweg-Jp-Ysz-Fe-FA tab Take 1 tablet by mouth once [...] Adult) Pulse 76 Ht 170.2 cm (5' 7") Wt 122.9 kg (271 lb) LMP 04/07/2022 (Exact Date) BMI 42.44 kg/m 07/19/22 1257 BP: 115/57 BP Site: Left Arm BP Position: Sitting BP Cuff Size: Large Adult Pulse: 76 Weight: 122.9 kg (271 lb) Height: 170.2 cm (5' 7") Well-groomed. No acute distress. The patient was [...] Finger Abduction (U) 5 Finger Abduction 5 Customer Engagement Specialist 5 Customer Engagement Specialist 5 Right Lower Extremity: (of 5) Left [...] and without status migrainosus (primary encounter diagnosis) Lorilie B Gray is a 42 year old female [...] days a month: 3 Gabi Cornelius APRN.GABRIELA [facility] General Neurology My impression and recommendations [...] which included preparing to see the patient, venh-ae-smvk patient care, completing clinical documentation, obtaining and/or [...] recommendations. Karen Bansal APRN.GABRIELA documented in this encounterNew[facility]09-15-2022 NoteHNO ID: [id number] Author: Adelina Marinelli APRN.GABRIELA Service: ? Author Type: Nurse Practitioner Type: Progress Notes Filed: 07/19/2022 10:17 AM Note Text: [facility] General Today's Date: 07/19/2022 Last Visit: 05/24/22 [...] reported: See above Recall: Patient of Dr. Rasheed. Current Status: INTAKE PAIN ASSESSMENT 06/07/2022 07/19/2022 [...] small degenerative change posterior-inferior labrum (Per Dr. Guadarrama) MRI of the right shoulder from an outside facility is essentially normal with some minor degenerative labral fraying and a joint effusion. Recent labs: Creatinine Date Value Ref Range Status 08/12/2015 0.59 (L) 0.70 - 1.40 mg/dL Final @lastegfr(gfr)@ Glucose, Point of Care Date Value Ref Range Status 05/10/2022 104 (A) 74 - 99 mg/dL Final Comment: Location:[facility], [address] [place] [address], [facility] The Accu-Chek Inform II glucose [...] IMPROVEMENT 05/09/22 LEFT suprascapular NB 75% Compliance: [facility] website checked and validated. All prescriptions have been APPROPRIATELY filled. No suspicious activity was identified. 07/19/2022 by Adelina Marinelli APRN.MAINTAINER OPERATOR Last Drug screen: Not Applicable Risk Assessment: [...] No visible regional lymphad (more content not included)...[facility]09-15-2022 NoteHNO ID: [id number] Author: Tiana Cifuentes MA Service: ? Author Type: Foundation Assistant Type: Progress Notes Filed: 07/19/2022 10:17 AM [...] and suicidal ideas. The patient is not nervous/anxious.[facility]09-15-2022 Miscellaneous Notes* Telephone Encounter - Pankaj Murillo [...] year? Yes If yes, When and Where? [place] [place] (Medical Records Release needs to [...] COVID vaccine.) Pankaj Murillo documented in this encounterNew[facility]09-[facility]-2022 Miscellaneous Notes* Telephone Encounter - Ingrid Salmon Ma - 07/10/2022 1:55 PM EDT Last office visit: 05/01/22 F/u scheduled: 08/02/22 Ingrid Salmon Ma documented in this encounterNewark Hospital08-30-2022 Miscellaneous Notes* Telephone Encounter - LEVAR [...] and PM. Note, lab work obtained from [facility] and reviewed. Given persistence of headaches [...] Thank you. LEVAR Jasmine documented in this encounterNewark Hospital08-19-2022 Miscellaneous Notes* Telephone Encounter - Dayanna [...] refill: 06/06/2022 20 tablets documented in this encounterNewark Hospital08-04-2022 Miscellaneous Notes* Telephone Encounter - LEVAR Jasmine - 06/07/2022 4:24 PM EDT Orders and APRIL Notes faxed to [employer] to service pts PAP due to compliance reports and data no longerbeing able to be pulled from device. LEVAR Jasmine documented in this encounterNewark Hospital08-04-2022 History of Present illness Narrative* Tara Gillette APRN.MAINTAINER OPERATOR - 06/07/2022 3:30 PM EDT Images from the original note were not included. [facility] [place] Follow-up Visit Follow-up note June 07, 2022 HPI: Ms. Gray presents today for a follow-up visit. Per her previous visit with Dr. Price on 04/09/22: ASSESSMENT/PLAN: 1. Intractable migraine without [...] BP. Check CMP and CBC due to intermediate manager med use. 3. LETITIA (obstructive sleep apnea) [...] when sleepy. Advised pt to avoid ozone i&c technician. Usually getting about 7 hours of sleep. [...] in bed with current PAP mask. Ipratropium [place] Plane (ATROVENT) 0.03 % nasal spray Use 2 Sprays in the nose every 12 hours. metroNIDAZOLE (METROGEL) 0.75 % Topical Gel Apply to affected area twice daily. [place]-3 Fatty Acids (FISH OIL) 500 mg cap Take 1 capsule by mouth once daily. blood sugar diagnostic (BLOOD GLUCOSE TEST) test strip Test blood sugar(s) 1 times daily. Dx: Type 2 DM - Controlled E11.9 Insulin: Yes Lancets lancets Test blood sugar(s) 1 times daily. Dx: Type 2 DM - Controlled E11.9 Insulin: No Kryktsod-Pj-Fdb-Fe-FA ( FORMULA) ORAL Tab Take 1 tablet [...] and pattern. Labs/studies: Outside labs reviewed from [facility] collected on 06/05/22: CBC N UA [...] and PM. Note, lab work obtained from [facility] and reviewed. Given persistence of headaches [...] which included preparing to see the patient, wycz-eh-tuil patient care, completing clinical documentation, obtaining and/or reviewing separately obtained history, performing a medically appropriate examination, counseling and educating the pat ient/family/caregiver and ordering medications, tests, or procedures. documented in this encounterNewark Hospital08-02-2022 Miscellaneous Notes* Addendum Note - Ivette Grimes MD - 06/05/2022 1:46 PM EDT Addended by: IVETTE GRIMES on: 06/05/2022 01:46 PM Modules accepted: Orders * Telephone Encounter - Ivette Grimes MD - 06/05/2022 1:44 PM EDT Can send lab to [facility] to be done in two weeks documented in this encounterNewark Hospital07-26-2022 Miscellaneous Notes* Telephone Encounter - LEVAR Jasmine - 05/29/2022 2:12 PM EDT Pt updated to get labs done through . LEVAR Jasmine * Telephone Encounter - Ivette Price Jr., MD - 05/29/2022 1:36 PM EDT Labs were reordered in 04/2022. Ivette Price MD * Telephone Encounter - LEVAR Jasmine - 05/29/2022 12:40 PM EDT In prepping for [facility] appointments on 06/07/22, pt was ordered CMP and CBC labs to be completed. Pt has not yet had this done. TC to patient to request these labs be completed before appointment on 06/07. Pt says she had CMP andCBC done at [facility] on 02/09. These are in pt chart. Pt asking if she needs to have labs redrawn or if the ones done in February are sufficient. Please advise. Thank you. LEVAR Jasmine documented in this encounterNewark Hospital07-21-2022 NoteHNO ID: [id number] Author: Adelina Marinelli APRN.MAINTAINER OPERATOR Service: ? Author Type: Nurse Practitioner Type: Progress Notes Filed: 05/24/2022 10:08 PM Note Text: [facility] General Today's Date: 05/24/2022 Last Visit: 03/29/22 [...] LEFT suprascapular NB on 05/10/[address] Rasheed, reports 75% relief, still having relief. Reports that the pressure in her shoulder has resolved since the injection. ROM has also improved significanty. 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 Rasheed Current Status: INTAKE PAIN ASSESSMENT 05/10/2022 05/24/2022 [...] degenerative change posterior-inferior labrum ? (Per Dr. Guadarrama) MRI of the right shoulder from an outside facility is essentially normal with some minor degenerative labral fraying and a joint effusion. Electrodiagnostic Study (EMG): Recent labs: Creatinine Date Value Ref Range Status 08/12/2015 0.59 (L) 0.70 - 1.40 mg/dL Final @lastegfr(gfr)@ Glucose, Point of Care Date Value Ref Range Status 05/10/2022 104 (A) 74 - 99 mg/dL Final Comment: Location:[facility], [address] [place] [address], [facility] The Accu-Chek Inform II glucose [...] (vitamin C) greater than (more content not included)...[facility]07-21-2022 NoteHNO ID: [id number] Author: Gloria Oh MA Service: ? Author Type: Foundation Assistant Type: Progress Notes Filed: 05/24/2022 10:08 PM [...] and suicidal ideas. The patient is not nervous/anxious.[facility]07-21-2022 Instructions* Patient Instructions* Adelina Marinelli APRN.CNP - 05/24/2022 11:52 AM EDT Activity as tolerated Use Ice and/or heat as tolerated as needed documented in this encounterNewark Hospital07-21-2022 History of Present illness Narrative* Adelina Marinelli APRN.CNP - 05/24/2022 11:28 AM EDT Images from the original note were not included. [facility] Today's Date: 05/24/2022 Last Visit: 03/29/22 Name: Tori Love Gray : 1980 Purpose: Established Patient Encounter [...] LEFT suprascapular NB on 05/10/[address] Rasheed, reports 75% relief, still having relief. Reports that the pressure in her shoulder has resolved since the injection. ROM has also improved significanty. 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 Rasheed Current Status: INTAKE PAIN ASSESSMENT 05/10/2022 05/24/2022 [...] small degenerative change posterior-inferior labrum (Per Dr. Guadarrama) MRI of the right shoulder from an outside facility is essentially normal with someminor degenerative labral fraying and a joint effusion. Electrodiagnostic Study (EMG): Recent labs: Creatinine Date Value Ref Range Status 08/12/2015 0.59 (L) 0.70 - 1.40 mg/dL Final @lastegfr(gfr)@ Glucose, Point of Care Date Value Ref Range Status 05/10/2022 104 (A) 74 - 99 mg/dL Final Comment: Location:[facility], [address] [place] [address], [facility] The Accu-Chek Inform II glucose [...] No suspiciousactivity was identified. 05/24/2022 by Adelina Marinelli APRN.MAINTAINER OPERATOR Last Drug screen: Not Applicable Risk Assessment: [...] refill. UDS, NAOIC/ORT: up to date Functional Jewish: Physical Therapy (Land-based) Additional Studies: None Referrals: [...] medical decision making from today's date. Adelina Marinelli APRN.MAINTAINER OPERATOR Pain Management [facility] * Gloria Oh MA - [...] patient is not nervous/anxious. documented in this encounterNewark Hospital07-08-2022 Miscellaneous Notes* Telephone Encounter - Livia Luna - 05/11/2022 3:17 PM EDT Left brief message asking patient to call back with any questions or concerns about a recent appointment. Livia Luna LPN May 11, 2022 3:18 PM documented in this encounterNewark Hospital07-07-2022 NoteHNO ID: [id number] Author: Mirna Lanza LPN Service: ? Author [...] and suicidal ideas. The patient is not nervous/anxious.[facility]07-07-2022 Nurse Note* Mirna Lanza LPN - 05/10/2022 [...] tablePatient s procedure was performed in an [facility] Procedure room. Pause completed at each [...] Lanza LPN - 05/10/2022 10:03 AM EDT Networking Technician's Name: Marilynn Are you on a blood [...] to receive one? n documented in this encounterNewark Hospital07-07-2022 Instructions* Patient Instructions* Mirna Lanza LPN - 05/10/2022 10:51 AM EDT PROCEDURE DISCHARGE INSTRUCTIONS 05/10/2022 Tori Gray 1980 Physician: Elle Rasheed MD Procedure: Other: LEFT SUPRASCAPULAR NERVE BLOCK [...] emergency care and why. documented in this encounterNewark Hospital07-07-2022 NoteHNO ID: [id number] Author: Elle Rasheed MD Service: ? Author Type: Physician Type: Progress Notes Filed: 05/10/2022 11:04 AM Note Text: [facility] Patient name: Tori Gray Date of : 1980 Today's date: 05/10/2022 Purpose: Ultrasound-guided injection Diagnosis: (M75.02) Adhesive capsulitis of left shoulder (primary encounter diagnosis) (M19.012) Primary osteoarthritis of left shoulder Procedure: Left Shoulder/Chest Suprascapular Nerve Block Server Administrator: Elle Rasheed M.D., M.B.A Comments: Allergy Due to the patient's reported history of allergy to Lidocaine, the following medication was substituted: Bupivacaine. Notes from Correctional Security Officer 01/2020 reviewed, she had skin testing to multiple local anesthetics and steroids, without any reaction, but advised that she avoid Lidocaine where possible due to unknown negative predictive value of the tests. Other anesthetics had been used with other procedures that did not have a reaction (eg Bupivacaine). [place] protocol documentation / Pre-Procedure Checklist: ? ID [...] to follow-up with the requesting physician. Elle Rasheed MD, MBA Pain Management [facility] 05-10-2022 History of Present illness Narrative* Mirna [...] The patient is not nervous/anxious. * Elle Rasheed MD - 05/10/2022 8:23 AM EDT [facility] Patient name: Tori Gray Date of : 1980 Today's date: 05/10/2022 Purpose: Ultrasound-guided injection Diagnosis: (M75.02) Adhesive capsulitis of left shoulder (primary encounter diagnosis) (M19.012) Primary osteoarthritis of left shoulder Procedure: Left Shoulder/Chest Suprascapular Nerve Block Server Administrator: Elle Rasheed M.D., M.B.A Comments: Allergy Due to the patient's reported history of allergy to Lidocaine, the following medication was substituted: Bupivacaine. Notes from Correctional Security Officer 01/2020 reviewed, she had skin testing to multiple local anesthetics and steroids, without any reaction, but advised that she avoid Lidocaine where possible due to unknown negative predictive value of the tests. Other anesthetics had been usedwith other procedures that did not have a reaction (eg Bupivacaine). [place] protocol documentation / Pre-Procedure Checklist: ID verified [...] [facility] Pain Management [facility] documented in this encounterNewark Hospital07-05-2022 Miscellaneous Notes* Telephone Encounter - Lubna Yoon LPN - 05/08/2022 1:04 PM EDT Sent a [employer] message * Telephone Encounter - Ivette Grimes MD - 05/08/2022 12:56 PM EDT I would recommend she follow up and see one of us here. documented in this encounterNewark Hospital06-30-2022 Miscellaneous Notes* Telephone Encounter - Jumana [...] advise. Jumana Harrell LPN documented in this encounterNewark Hospital06-28-2022 Instructions* Patient Instructions* Ivette Grimes MD - 05/01/2022 3:22 PM EDT Change lyrica to every other day for three days then stop. Then start gabapentin one tab at bedtime for three days. Then one tab twice a day for three days Then one tab in am and two at night for three days. Then 2 tabs twice a day. documented in this encounterNewark Hospital06-28-2022 History of Present illness Narrative* Ivette [...] in bed with current PAP mask. Ipratropium [place] Plane (ATROVENT) 0.03 % nasal spray Use 2 [...] 2 DM - Controlled E11.9 Insulin: No Xfwcxhbk-Fe-Cfd-Fe-FA ( FORMULA) ORAL Tab Take 1 tablet by mouth once daily. [place]-3 Fatty Acids (FISH OIL) 500 mg cap [...] Age of Onset Alcohol/Drug Mother Heart Father SD Cancer Father PANCREATIC CANCER Diabetes Father Diabetes [...] three months and prn. documented in this encounterNewark Hospital06-16-2022 Miscellaneous Notes* Addendum Note - Ivette Grimes MD - 04/19/2022 2:41 PM EDT Addended by: IVETTE GRIMES on: 04/19/2022 02:41 PM Modules accepted: Orders documented in this [facility]06-13-2022 Miscellaneous Notes* Telephone Encounter - Ivette Price Jr., MD - 04/16/2022 6:04 PM EDT Please contact D[facility] ([facility] to determine if pt qualifies for new PAP device. If so, can order a new AutoBilevel PAP. Thank you, Ivette Price MD documented in this [facility]06-13-2022 Miscellaneous Notes* Telephone Encounter - Quinn Lazo LPN - 04/16/2022 10:28 AM EDT Patient phones requesting refills as follows: Pending Prescriptions Disp Refills TIZANIDINE 4 MG TABLET 20 tablet 0 Sig: Take 1 tablet by mouth every 8 hours as needed. CRISTINA: No APRIL 02/28/22 NOV 05/01/22 Please review and advise. Quinn Lazo LPN documented in this [facility]06-06-2022 Instructions* Patient Instructions* Ivette Price Jr., MD - 04/09/2022 4:15 PM EDT [...] Excedrin and Tylenol use. documented in this [facility]06-06-2022 History of Present illness Narrative* Ivette Price Jr., MD - 04/09/2022 3:53 PM EDT [...] this resolves mask issues. Rx sent to [facility]. During visit, discussed with patient: the physiology [...] - right above shoulder blade is where "my should hurts and radiates up into my neck". MRI C spine on 01/02/22 was essentially [...] in bed with current PAP mask. Ipratropium [place] Plane (ATROVENT) 0.03 % nasal spray Use 2 Sprays in the nose every 12 hours. blood sugar diagnostic (BLOOD GLUCOSE TEST) test strip Test blood sugar(s) 1 times daily. Dx: Type 2 DM - Controlled E11.9 Insulin: Yes Lancets lancets Test blood sugar(s) 1 times daily. Dx: Type 2 DM - Controlled E11.9 Insulin: No Mgmrjszc-Ck-Vgp-Fe-FA ( FORMULA) ORAL Tab Take 1 tablet by mouth once daily. metroNIDAZOLE (METROGEL) 0.75 % Topical Gel Apply to affected area twice daily. [place]-3 Fatty Acids (FISH OIL) 500 mg cap Take 1 capsule by mouth once daily. HISTORIES PAST MEDICAL HISTORY Diagnosis Date Acute cholecystitis Cholecystitis Anxiety 06/07/2014 Type 2 diabetes mellitus (HCC) FAMILY HISTORY Problem Relation Age of Onset Alcohol/Drug Mother Heart Father SD Cancer Father PANCREATIC CANCER Diabetes Father Diabetes [...] BP. Check CMP and CBC due to intermediate manager med use. 3. LETITIA (obstructive sleep apnea) [...] when sleepy. Advised pt to avoid ozone i&c technician. Ivette Price MD I spent a total of 40+ minutes on the date of the service which included preparing to see the patient, zrjr-nu-egft patient care, completing clinical documentation, obtaining and/or reviewing separately obtained history, performing a medically appropriate examination, counseling and educating the pa tient/family/caregiver, ordering medications, tests, or procedures, independently interpreting results (not separately reported) and communicating results to the patient/family/caregiver. documented in this encounterNewark Hospital06-02-2022 Miscellaneous Notes* Telephone Encounter - Helen Camacho LPN - 04/05/2022 9:51 AM EDT Last office visit 02/23/2022 documented in this encounterNewark Hospital05-27-2022 Miscellaneous Notes* Telephone Encounter - Milena Rico LPN - 03/30/2022 11:08 AM EDT april-- 02/28/22 Next 05/01/22 Last refill-- 03/16/22 20 with 0 refills Last labs 02/07/22 documented in this encounterNewark Hospital05-26-2022 Miscellaneous Notes* Telephone Encounter - Terese [...] COVID vaccine.) Terese Cruz documented in this encounterNewark Hospital05-26-2022 NoteHNO ID: [id number] Author: Henna Boles MA Service: ? Author Type: Foundation Assistant Type: Progress Notes Filed: 03/29/2022 11:48 AM [...] and suicidal ideas. The patient is not nervous/anxious.[facility]05-26-2022 History of Present illness Narrative* Henna Boles [...] The patient is not nervous/anxious. * Elle Rasheed MD - 03/29/2022 7:53 AM EDT Images from the original note were not included. [facility] Name: Tori Gray : 1980 Purpose: New Patient Consultation Today's Date: 03/29/2022 Thank you, Sam Guadarrama, for referring Tori Gray for evaluation and management options for the chief complaint(s) noted below. Initial HPI: (Obtained on 03/29/2022) Referred by Sam Guadarrama. Tori Gray is a 41 year oldyear-old [...] Chiropractor regularly. She was seen by Dr. Guadarrama in Ortho on 12/21/2021, noted she had an EMG at [facility] which was normal (Jul 2021). MRI shoulder had very minor degenerative changes. Non-surgical management was advised. 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 [...] filled. No suspiciousactivity was identified. by Elle Rasheed MD 03/29/2022 Last Drug screen: Not Applicable [...] (Meloxicam) and Lodine (Etodolac) Opioids: Vicodin or [place] (Hydrocodone) and Percocet (Oxycodone) Muscle Relaxants: Zanaflex [...] small degenerative change posterior-inferior labrum (Per Dr. Guadarrama) MRI of the right shoulder from an [...] Referrals: No additional considerations at present Functional Jewish: No changes-continue current regimen Depending on response [...] medical decision making from today's date. Elle Rasheed MD, SULEIMAN Pain Management [facility] documented in this encounterNewark Hospital05-26-2022 NoteHNO ID: [id number] Author: Elle Rasheed MD Service: ? Author Type: Physician Type: Progress Notes Filed: 03/29/2022 11:48 AM Note Text: [facility] Name: Tori Gray : 1980 Purpose: New Patient Consultation Today's Date: 03/29/2022 Thank you, Sam Guadarrama, for referring Tori Gray for evaluation and management options for the chief complaint(s) noted below. Initial HPI: (Obtained on 03/29/2022) Referred by Sam Guadarrama. Tori Gray is a 41 year old [...] Chiropractor regularly. She was seen by Dr. Guadarrama in Ortho on 12/21/2021, noted she had an EMG at [facility] which was normal (Jul 2021). MRI shoulder had very minor degenerative changes. Non-surgical management was advised. 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 [...] No suspicious activity was identified. by Elle Rasheed MD 03/29/2022 Last Drug screen: Not Applicable [...] (Meloxicam) and Lodine (Etodolac) Opioids: Vicodin or [place] (Hydrocodone) and Percocet (Oxycodone) Muscle Relaxants: Zanaflex [...] On today's date, noted (more content not included)...[facility]05-13-2022 Miscellaneous Notes* Telephone Encounter - Helen Camacho LPN - 03/16/2022 11:14 AM EDT Patient phones requesting refills as follows: Pending Prescriptions Disp Refills TIZANIDINE 4 MG TABLET 20 tablet 0 Sig: Take 1 tablet by mouth every 8 hours as needed. CRISTINA: No Please review and advise. Helen Camacho LPN documented in this encounterNewark Hospital05-02-2022 Miscellaneous Notes* Telephone Encounter - LEVAR [...] Thank you. LEVAR Jasmine documented in this encounterNewark Hospital04-27-2022 History of Present illness Narrative* Ivette Grimes MD - 02/28/2022 4:43 PM EDT Patient presents with: ED Follow-up HPI: Patient presents today for office visit for follow up. Nursing Notes: Nirmala Storey LPN 02/28/2022 4:42 PM Signed HOSPITAL/ER FOLLOW UP: Reason for visit: back pain/headache(different pain not her chronic pain) Pain went from lower backup to shoulders. Which facility: [facility] Date of visit: 02/27/22 Diagnosis: back pain, hypertension Testing done: CT scan and labs Treatment given: no new changes Current symptoms: mild headache still and back pain, just feels off Was just feeling off. Aching. Cold chills. Scheduled with Dr Rasheed. bp was up in ER,. Given hydralazine. Ct of abd and pelvis was negative. Labs and urine were negative. Pain happened last week as well. Happened all day yesterday. [place] different than her classic disc pain. Might [...] in bed with current PAP mask. Ipratropium [place] (ATROVENT) 0.03 % nasal spray Use 2 Sprays in the nose every 12 hours. metroNIDAZOLE (METROGEL) 0.75 % Topical Gel Apply to affected area twice daily. [place]-3 Fatty Acids (FISH OIL) 500 mg cap Take 1 capsule by mouth once daily. blood sugar diagnostic (BLOOD GLUCOSE TEST) test strip Test blood sugar(s) 1 times daily. Dx: Type 2 DM - Controlled E11.9 Insulin: Yes Lancets lancets Test blood sugar(s) 1 times daily. Dx: Type 2 DM - Controlled E11.9 Insulin: No Ybhlvipd-Te-Sma-Fe-FA ( FORMULA) ORAL Tab Take 1 tablet [...] Age of Onset Alcohol/Drug Mother Heart Father [place] Cancer Father PANCREATIC CANCER Diabetes Father Diabetes [...] ICD9: 722.93, ICD10: M51.9 - see dr. Rasheed 6. Elevated BP without diagnosis of hypertension - ICD9: 796.2, ICD10: R03.0 - Call with bp in two weeks. - Goal of BP <130/80 Ivette Grimes RTO in six to eight weeks [facility]* Nirmala Storey LPN - 02/28/2022 4:36 PM EDT HOSPITAL/ER FOLLOW UP: Reason for visit: back pain/headache(different pain not her chronic pain) Pain went from lower backup to shoulders. Which facility: [facility] Date of visit: 02/27/22 Diagnosis: back pain, hypertension Testing done: CT scan and labs Treatment given: no new changes Current symptoms: mild headache still and back pain, just feels off Was just feeling off. Aching. Cold chills. Scheduled with Dr Rasheed. [facility] Miscellaneous Notes* Telephone Encounter - Quinn Lazo LPN - 02/27/2022 12:44 PM EDT Appt scheduled. Quinn Lazo LPN documented in this [facility]04-22-2022 Miscellaneous Notes* Telephone Encounter - LEVAR Jasmine [...] Thank you. LEVAR Jasmine documented in this [facility]04-06-2022 Miscellaneous Notes* Telephone Encounter - Nirmala Storey LPN - 02/07/2022 4:09 PM EDT Apartamah[employer] message sent to patient. * Telephone Encounter - Ivette Grimes MD - 02/07/2022 3:38 PM EDT Let her her know her labs look great. * Telephone Encounter - Nirmala Storey LPN - 02/07/2022 2:33 PM EDT Received lab results from [facility]. Placed on desk for review. [facility] Miscellaneous Notes* Telephone Encounter - Tessy Wadsworth Ma - 02/05/2022 12:25 PM EDT Labs faxed within [facility] to update if there are any issues. Tessy Wadsworth Ma [facility] Miscellaneous Notes* Telephone Encounter - Darrion Brooklyn - 01/29/2022 3:13 PM EDT I have attempted to contact this patient by phone, Left brief message on cell voicemail stating to call and schedule. Darrion Barahona * Telephone Encounter - Darrion Barahona - 01/29/2022 3:13 PM EDT ----- Message from Gale Quinonez sent at 01/29/2022 3:10 PM EDT ----- Regarding: FW: New Referral ----- Message ----- From: Little Carrillo Sent: 01/29/2022 7:34 AM EDT To: Calvin Gaytan Stephanie Gidley Subject: FW: New Referral ----- Message ----- From: Nirmala Storey LPN Sent: 01/26/2022 9:15 AM EDT To: Little Carrillo Subject: New Referral Dr Grimes and Dr Alfonso have suggested patient see Dr Rasheed for left shoulder pain. Thank you! [facility] History of Past illness Narrative* Problem [...] of this encounter (statuses as of 01/30/2022) [facility] Narrative* Problem [...] of this encounter (statuses as of 02/05/2022) [facility]* Problem [...] of this encounter (statuses as of 02/07/2022) [facility]* Problem [...] of this encounter (statuses as of 02/07/2022) [facility]* Problem [...] of this encounter (statuses as of 02/08/2022) [facility]* Problem [...] of this encounter (statuses as of 02/23/2022) [facility]* Problem [...] of this encounter (statuses as of 02/27/2022) [facility]* Problem Noted Date Resolved Date Routine general medical exam ination at a health care facility 12/06/2012 02/22/2014 Routine general medical exam ination at a [facility] 01/23/2010 12/06/2012 Overview: 01/23/2010, from [...] of this encounter (statuses as of 02/28/2022) [facility]* Problem [...] of this encounter (statuses as of 03/05/2022) [facility]* Problem [...] of this encounter (statuses as of 03/16/2022) [facility]* Problem [...] of this encounter (statuses as of 03/29/2022) [facility]* Problem [...] of this encounter (statuses as of 03/29/2022) [facility] Problem [...] of this encounter (statuses as of 03/30/2022) [facility] Problem [...] of this encounter (statuses as of 04/05/2022) [facility] Problem [...] of this encounter (statuses as of 04/09/2022) [facility] Problem [...] of this encounter (statuses as of 04/10/2022) [facility] Problem [...] of this encounter (statuses as of 04/16/2022) [facility] Problem [...] of this encounter (statuses as of 04/16/2022) [facility] Problem [...] of this encounter (statuses as of 04/19/2022) [facility] Problem [...] of this encounter (statuses as of 05/01/2022) [facility] Problem [...] of this encounter (statuses as of 05/03/2022) [facility] Problem [...] of this encounter (statuses as of 05/08/2022) [facility] Problem [...] of this encounter (statuses as of 05/10/2022) [facility] Problem [...] of this encounter (statuses as of 05/11/2022) [facility] Problem [...] of this encounter (statuses as of 05/25/2022) [facility] Problem [...] of this encounter (statuses as of 05/29/2022) [facility] Problem [...] of this encounter (statuses as of 06/05/2022) [facility] Problem [...] of this encounter (statuses as of 06/05/2022) [facility] Problem [...] of this encounter (statuses as of 06/07/2022) [facility] Problem [...] of this encounter (statuses as of 06/07/2022) [facility] Problem [...] of this encounter (statuses as of 06/22/2022) [facility] Problem [...] of this encounter (statuses as of 07/03/2022) [facility] Problem [...] of this encounter (statuses as of 07/10/2022) [facility] Problem [...] of this encounter (statuses as of 07/19/2022) [facility] Problem [...] of this encounter (statuses as of 07/19/2022) [facility] Problem [...] of this encounter (statuses as of 07/23/2022) [facility]* Problem Noted Date Resolved Date Routine general medical exam ination at a health care facility 12/06/2012 02/22/2014 Routine general medical exam ination at a [facility] 01/23/2010 12/06/2012 Overview: 01/23/2010, from [...] of this encounter (statuses as of 08/01/2022) [facility]* Problem [...] of this encounter (statuses as of 08/02/2022) [facility] Problem [...] of this encounter (statuses as of 08/03/2022) [facility] Problem [...] of this encounter (statuses as of 08/06/2022) [facility] Problem [...] of this encounter (statuses as of 08/08/2022) [facility] Problem [...] of this encounter (statuses as of 08/08/2022) [facility] Problem [...] of this encounter (statuses as of 08/08/2022) [facility] Problem [...] of this encounter (statuses as of 08/27/2022) [facility]* Problem [...] of this encounter (statuses as of 09/03/2022) [facility] complaint+Reason for visit Narrative* Chief Complaint [...] dysfunction of thoracic region Disc displacement, lumbar [facility] Work Phone: Consult note Author Ankur Templeton [facility] Note Date/Time June 23, 2025 8: 58am [facility] Medical Records Department [address] [place] [address] Anesthesia Postop Eval I 06/23/25 0857 MR#: [id number] Acct: [id number] Name: TORI GRAY Rep #:[id number] : 1980 45 From: Ankur ROJO PCP: Dr. 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 She was saying something about going to the [facility] or [facility] and her daughter said that what ever she was saying did not make any sense and she was saying "yes, we have to go there." She is insightful that that does notmake [...] last A1c was in the 5.1 range. [facility] Medical History Abnormal ECG Acute bronchitis [...] %) nasal spray 2 spray intranasal BID kgnkrxhar25/20/20 [History Last Taken 08/03/23] omega-3 fatty acids [...] Neuro Narrative: Normal speech. No aphasia. Normal hxjlqp-nj-cohm and obfc-yf-ibjs bilaterally. No confusion. 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 She describes visual disturbance being diffuse, [...] (Auto) 71.0 H Lymph % (Auto) 19.8 [place] % (Auto) 6.6 Eos % (Auto) 0.9 [...] Clarity Clear Urine pH 7.0 Ur Specific Banks 1.010 Urine Protein 15 H Urine Glucose [...] 3:17 EDT Reading Location ID and State: [facility] / [place] Tel , Service support , Discharge Plan [...] your Primary Care Provider. Call [facility] ([phone]) or report to the closest Emergency Room. Call 911 if necessary. 02/04/24 0349 <Electronically signed by Sam Pearl MD> Cosigner Signature (if applicable): CC: Dr. Ivette Grimes MD ~ Signed [facility] Work Phone: Evaluation note* Diagnosis Onset [...] region acute Disc displacement, lumbar ch ronic [facility] Work Phone: Evaluation note* Diagnosis Upper back pain- Primary Acute midline low back pain without sciatica Type 2 diabetes mellitus with microalbuminuria, with long-term current use of insulin (HCC) LETITIA (obstructive sleep apnea) Obstructive sleep apnea (adult) (pediatric) Lumbar disc disorder Other and unspecified disc disorder of lumbar region Elevated BP without diagnosis of hypertension [facility] Myofascial pain- Primary Mylagia and myositis, unspecified Chronic left shoulder pain Pain in joint, shoulder region Neuropathic pain Neuralgia, neuritis, and radiculitis, unspecified Adhesive capsulitis of left shoulder Adhesive capsulitis of shoulder Primary osteoarthritis of left shoulder Primary localized osteoarthrosis, shoulder region [facility] Diagnosis Migraine without aura and without status migrainosus, not intractable Migraine without aura, without mention of intractable migraine without mention of status migrainosus [facility] Diagnosis Intractable migraine without aura [...] comorbidity present (HCC) [facility] Diagnosis Microalbuminuria- Primary Proteinuria Anxiety [...] Chest pain, unspecified [facility] Diagnosis SOB (shortness of breath) Shortness of breath [facility] Diagnosis Adhesive capsulitis of left shoulder- Primary Adhesive capsulitis of shoulder Primary osteoarthritis of left shoulder Primary localized osteoarthrosis, shoulder region [facility] Diagnosis Chronic left shoulder pain- Primary Pain in joint, shoulder region Adhesive capsulitis of left shoulder Adhesive capsulitis of shoulder Primary osteoarthritis of left shoulder Primary localized osteoarthrosis, shoulder region Myofascial pain Mylagia and myositis, unspecified [facility] Proteinuria, unspecified type- Primary [...] comorbidity present (HCC) [facility] Diagnosis Intractable migraine without aura and [...] comorbidity present (HCC) [facility] Intractable chronic migraine without aura and without status migrainosus- Primary Chronic migraine without aura, with intractable migraine, so stated, without mention of status migrainosus Mixed migraine and muscle contraction headache Migraine, unspecified, without mention of intractable migraine without mention of status migrainosus [facility]* Diagnosis Onset Date Resolution Status Back [...] region acute Disc displacement, lumbar ch ronic [facility] Work Phone: Evaluation note* Diagnosis Type [...] Fatigue, unspecified type [facility] Diagnosis Onset Date Resolution Status [...] dysfunction of thoracic region chronic Obesity chronic [facility] Work Phone: Evaluation note* Diagnosis Onset [...] chronic Obesity chronic Type 2 diabetes mellitus [facility] Work Phone: Evaluation note* Diagnosis Malaise- Primary Other malaise and fatigue [facility] Diagnosis Onset Date Resolution Status [...] region acute Disc displacement, lumbar ch ronic [facility] Work Phone: Evaluation note* Diagnosis Lightheadedness- Primary Dizziness and giddiness Essential (primary) hypertension Unspecified essential hypertension Prolonged Q-T interval on ECG Nonspecific abnormal electrocardiogram (ECG) (EKG) Type 2 diabetes mellitus with microalbuminuria, with long-term current use of insulin (HCC) Fatty liver Other chronic nonalcoholic liver disease LETITIA (obstructive sleep apnea) Obstructive sleep apnea (adult) (pediatric) [facility] Diagnosis Anxiety with depression- Primary [facility] Diagnosis Onset Date Resolution Status [...] thoracic region acute [facility] Work Phone: Evaluation note* Diagnosis Onset [...] region acute Disc displacement, lumbar ch ronic [facility] Work Phone: Evaluation note* Diagnosis VAHE (generalized anxiety disorder)- Primary Generalized anxiety disorder Major depressive disorder, recurrent episode, moderate ([facility]) Major depressive disorder, recurrent episode, moderate [facility]* Diagnosis Chronic left shoulder pain- Primary Pain in joint, shoulder region Adhesive capsulitis of left shoulder Adhesive capsulitis of shoulder Neuropathic pain Neuralgia, neuritis, and radiculitis, unspecified Myofascial pain Mylagia and myositis, unspecified [facility]* Diagnosis Chronic left shoulder pain- Primary Pain in joint, shoulder region Adhesive capsulitis of left shoulder Adhesive capsulitis of shoulder Chronic left shoulder pain Pain in joint, shoulder region Adhesive capsulitis of left shoulder Adhesive capsulitis of shoulder [facility] Diagnosis Microalbuminuria Proteinuria Type 2 diabetes [...] capsulitis of shoulder [facility]* Diagnosis Onset Date Resolution Status Back [...] acute Disc displacement, lumbar ch ronic [facility] Work Phone: Evaluation note* Diagnosis Onset [...] region acute Disc displacement, lumbar ch ronic [facility] Work Phone: Evaluation note* Diagnosis Worst headache of life- Primary Headache Concussion with loss of consciousness, initial encounter Chronic left shoulder pain Pain in joint, shoulder region Adhesive capsulitis of left shoulder Adhesive capsulitis of shoulder [facility] Diagnosis Headache, unspecified headache type- Primary Concussion with loss of consciousness, initial encounter Chronic left shoulder pain Pain in joint, shoulder region Adhesive capsulitis of left shoulder Adhesive capsulitis of shoulder [facility]* Diagnosis Post concussion syndrome- Primary Postconcussion [...] capsulitis of shoulder [facility]* Diagnosis Headache, unspecified headache type- Primary Concussion with loss of consciousness, initial encounter Chronic left shoulder pain Pain in joint, shoulder region Adhesive capsulitis of left shoulder Adhesive capsulitis of shoulder [facility]* Diagnosis Post concussion syndrome- Primary Postconcussion syndrome Essential (primary) hypertension Unspecified essential hypertension Microalbuminuria Proteinuria Type 2 diabetes mellitus without complication, with long-term current use of insulin ([facility]) Chronic left shoulder pain Pain in joint, shoulder region Adhesive capsulitis of left shoulder Adhesive capsulitis of shoulder [facility]* Diagnosis Post concussion syndrome- Primary Postconcussion syndrome Essential (primary) hypertension Unspecified essential hypertension Chronic left shoulder pain Pain in joint, shoulder region Adhesive capsulitis of left shoulder Adhesive capsulitis of shoulder [facility]* Diagnosis Post concussive syndrome- Primary Postconcussion syndrome Headache, unspecified headache type [facility] Diagnosis Post concussive syndrome- Primary Postconcussion syndrome Headache, unspecified headache type Injury of neck, subsequent encounter [facility] Diagnosis Onset Date Resolution Status [...] region acute Disc displacement, lumbar ch ronic [facility] Work Phone: Evaluation note* Diagnosis Intractable chronic migraine without aura and without status migrainosus- Primary Chronic migraine without aura, with intractable migraine, so stated, without mention of status migrainosus [facility] Diagnosis Chronic left shoulder pain- Primary Pain in joint, shoulder region Adhesive capsulitis of left shoulder Adhesive capsulitis of shoulder Neuropathic pain Neuralgia, neuritis, and radiculitis, unspecified Primary osteoarthritis of left shoulder Primary localized osteoarthrosis, shoulder region Myofascial pain Mylagia and myositis, unspecified Lumbar spondylosis Lumbosacral spondylosis without myelopathy [facility]* Diagnosis Post concussive syndrome- Primary Postconcussion syndrome Headache, unspecified headache type Injury of neck, subsequent encounter [facility] Diagnosis Soft tissue mass- Primary Disorders of soft tissue, unspecified [facility] Diagnosis VAHE (generalized anxiety disorder)- Primary Generalized anxiety disorder Recurrent major depressive disorder, in full remission (HCC) [facility] Diagnosis Onset Date Resolution Status [...] region acute Disc displacement, lumbar ch ronic [facility] Work Phone: Evaluation note* Diagnosis Anxiety- Primary Anxiety state, unspecified [facility]* Diagnosis Soft tissue mass- Primary Disorders of soft tissue, unspecified Post concussive syndrome Postconcussion syndrome Essential (primary) hypertension Unspecified essential hypertension Type 2 diabetes mellitus with microalbuminuria, with long-term current use of insulin (HCC) Headache, unspecified headache type Myalgia Mylagia and myositis, unspecified [facility]* Diagnosis Post concussion syndrome- Primary Postconcussion syndrome LETITIA (obstructive sleep apnea) Obstructive sleep apnea (adult) (pediatric) [facility]* Diagnosis Encounter for gynecological examination (general) (routine) without abnormal findings- Primary documented in this encounter [facility] note* Diagnosis Post concussion syndrome- Primary Postconcussion syndrome LETITIA (obstructive sleep apnea) Obstructive sleep apnea (adult) (pediatric) Intractable acute post-traumatic headache Acute post-traumatic headache Altered awareness, transient Transient alteration of awareness documented in this encounter [facility] note* Diagnosis Onset Date [...] region acute Disc displacement, lumbar ch ronic [facility] Work Phone: Evaluation note* Diagnosis Intractable chronic migraine without aura and without status migrainosus- Primary Chronic migraine without aura, with intractable migraine, so stated, without mention of status migrainosus Post concussive syndrome Postconcussion syndrome [facility] Diagnosis Onset Date Resolution Status Back [...] region acute Disc displacement, lumbar ch ronic [facility] Work Phone: Evaluation note* Diagnosis Foot pain, right- Primary Pain in limb documented in this encounter [facility] note* Diagnosis Type 2 diabetes mellitus with [...] unspecified headache type documented in this encounter [facility] note* Diagnosis Memory loss- Primary Attention and concentration deficit Attention or concentration deficit Post concussion syndrome Postconcussion syndrome Intractable migraine without aura and without status migrainosus Migraine without aura, with intractable migraine, so stated, without mention of status migrainosus LETITIA (obstructive sleep apnea) Obstructive sleep apnea (adult) (pediatric) documented [facility]* Diagnosis Plantar fasciitis- Primary Plantar fascial fibromatosis Calcaneal spur of right foot Calcaneal spur [facility] Diagnosis SOB (shortness of breath) Shortness of breath [facility]* Diagnosis SOB (shortness of breath) Shortness of breath [facility] Diagnosis Onset Date Resolution Status Back [...] region acute Disc displacement, lumbar ch ronic [facility] Work Phone: Evaluation note* Diagnosis Post concussion syndrome Postconcussion syndrome Intractable acute post-traumatic headache Acute post-traumatic headache Dizziness Dizziness and giddiness Cervicalgia documented in this encounter [facility] note* Diagnosis Post concussive syndrome Postconcussion syndrome Headache, unspecified headache type [facility] Onset Date Resolution Status [...] of thoracic region acute Disc displacement, lumbar [facility] Work Phone: Evaluation note* Diagnosis Onset [...] region acute Disc displacement, lumbar ch ronic [facility] Work Phone: Evaluation note* Diagnosis Essential (primary) hypertension- Primary Unspecified essential hypertension LETITIA (obstructive sleep apnea) Obstructive sleep apnea (adult) (pediatric) Fatty liver Other chronic nonalcoholic liver disease Vertigo Dizziness and giddiness Anxiety Anxiety state, unspecified [facility] Diagnosis Encounter for screening mammogram for malignant neoplasm of breast- Primary Other screening mammogram [facility] Diagnosis Onset Date Resolution Status Back [...] Obesity chronic LETITIA (obstructive sleep apnea) chronic [facility] Work Phone: Evaluation note* Diagnosis Intractable chronic migraine without aura and without status migrainosus- Primary Chronic migraine without aura, with intractable migraine, so stated, without mention of status migrainosus [facility] Diagnosis Onset Date Resolution Status Obesity chronic LETITIA (obstructive sleep apnea) chronic [facility] Work Phone: evaluation note* Diagnosis Intractable chronic migraine without aura and without status migrainosus- Primary Chronic migraine without aura, with intractable migraine, so stated, without mention of status migrainosus [facility] Diagnosis Headache, unspecified headache type [facility] Diagnosis Headache, unspecified headache type [facility] Diagnosis Left sided sciatica- Primary Sciatica Screening for depression [facility] Diagnosis Acute cough- Primary [facility] Diagnosis Bronchitis- Primary Bronchitis, not specified as acute or chronic Type 2 diabetes mellitus with microalbuminuria, with long-term current use of insulin (HCC) Wheezing documented in this encounter [facility] note* Diagnosis Type 2 diabetes mellitus with microalbuminuria, with long-term current use of insulin (HCC)- Primary [facility] Cough, unspecified type- Primary [facility] Diagnosis Pain of right heel Pain in limb [facility] Diagnosis Well adult exam- Primary Routine [...] myelopathy, lumbar region [facility] Diagnosis Intractable chronic migraine without aura and without status migrainosus- Primary Chronic migraine without aura, with intractable migraine, so stated, without mention of status migrainosus [facility] Diagnosis Dysuria- Primary Type 2 diabetes mellitus with microalbuminuria, with long-term current use of insulin ([facility]) Primary insomnia Persistent disorder of initiating or maintaining sleep [facility] Diagnosis Flank pain- Primary Abdominal pain, unspecified site [facility] Diagnosis Flank pain Abdominal pain, unspecified site [facility]* Diagnosis SOB (shortness of breath) Shortness of breath [facility] Diagnosis Sinobronchitis- Primary Unspecified sinusitis (chronic) Hypokalemia Hypopotassemia [facility]* Diagnosis Sinobronchitis- Primary Unspecified sinusitis (chronic) [facility]* Diagnosis Encounter for screening mammogram for breast cancer [facility]* Diagnosis LETITIA (obstructive sleep apnea)- Primary Obstructive sleep apnea (adult) (pediatric) Flank pain Abdominal pain, unspecified site Headache, unspecified headache type Type 2 diabetes mellitus with microalbuminuria, with long-term current use of insulin (HCC) Essential (primary) hypertension Unspecified essential hypertension Chronic left shoulder pain Pain in joint, shoulder region Anxiety Anxiety state, unspecified Screening for depression [facility] Diagnosis Intractable chronic migraine without aura and without status migrainosus- Primary Chronic migraine without aura, with intractable migraine, so stated, without mention of status migrainosus Chronic left shoulder pain Pain in joint, shoulder region [facility]* Diagnosis Intractable chronic migraine without aura and with status migrainosus- Primary Chronic migraine without aura, with intractable migraine, so stated, with status migrainosus [facility]* Diagnosis Spasm of muscle [facility]* Diagnosis Flank pain Abdominal pain, unspecified site [facility]* Diagnosis Well adult exam- Primary Routine [...] for breast cancer [facility]* Diagnosis LUQ pain Abdominal pain, left upper quadrant Flank pain Abdominal pain, unspecified site [facility]* Diagnosis Type 2 diabetes mellitus with microalbuminuria, with long-term current use of insulin (HCC) [facility]* Diagnosis Microalbuminuria Proteinuria Type 2 diabetes mellitus without complication, with long-term current use of insulin (HCC) documented [facility]* Diagnosis Microalbuminuria Proteinuria Type 2 diabetes mellitus without complication, with long-term current use of insulin (HCC) [facility]* Diagnosis Sepsis due to Escherichia coli with acute renal failure without septic shock, unspecified acute renal failure type (HCC)- Primary Type 2 diabetes mellitus with microalbuminuria, with long-term current use of insulin (HCC) LETITIA (obstructive sleep apnea) Obstructive sleep apnea (adult) (pediatric) Obesity, Class III, BMI >= 40 Morbid obesity Microalbuminuria Proteinuria Type 2 diabetes mellitus without complication, with long-term current use of insulin (HCC) Migraine without aura and without status migrainosus, not intractable Migraine without aura, without mention of intractable migraine without mention of status migrainosus [facility] instructionsAmbulatory Orders* Electrophysiology Location: None Selected [facility] Work Phone: Hospital Discharge instructions Additional [...] care physician for further outpatient evaluation and management.[facility] Work Phone: Hospital Discharge instructionsAdditional Instructions Date [facility]: [facility]/25[facility] Work Phone: Progress note Author Brett Quiroga [facility] Note Date/Time August 05, 2025 9: 57am [facility] [address] [place] [address] OFFICE VISIT Date of Service: 08/05/25 MR#: [id number] Acct: [id number] Name: TORI GRAY Rep #: [id number] : 1980 Provider: Dr. Killian Quiroga MD Age/Sex: 45/F Location: [facility] Status: Signed Intake Vital Signs 07/06/25 10:30 Height 5 ft 7 in Intake Visit Reasons: LEFT SHOULDER Chief Complaint: Left Shoulder 6 week Post-Op Accompanied by: Self Is patient in pain?: Yes Pain scale (1-10): 6 Allergies Corticosteroids (Glucocorticoids) (steroids) Allergy (Verified 08/05/25 09:18) Hives lidocaine Adverse Reaction (Intermediate, Verified 08/05/25 09:18) Hives Medications ?Medication ?Instructions ?Recorded ?Confirmed ?Type blood sugar diagnostic (Blood #10 ea 04/26/20 08/05/25 History Glucose Test strips) ipratropium bromide 21 mcg (0.03 2 spray intranasal BI D PRN 08/23/20 08/05/25 History %) nasal spray allergies albuterol sulfate 90 mcg/actuation 2 puff inhalation Q 4H PRN 08/10/22 08/05/25 History aerosol inhaler shortness of breath or wheez ing fexofenadine 180 mg tablet 180 mg PO DAILY allergies 1 08/05/25 History (Allergy Relief (fexofenadine)) levonorgestrel 17.5 mcg/24 hr (up 1 device intrauterin e ONCE 08/10/22 08/05/25 History to 5 yrs) 19.5mg intrauterine control device tizanidine 4 mg tablet 4 mg PO Q8H PRN Muscle Spasm 08/10/22 08/05/25 History omeprazole 20 mg capsule,delayed 20 mg PO DAILY PRN ge rd 08/16/22 08/05/25 Hi story release fluoxetine 20 mg capsule 20 mg PO QHS mental health 0 12/28/22 08/05/25 History gabapentin 300 mg capsule 300 mg PO QHS nerve pain 08/05/25 History lisinopril 10 mg tablet 10 mg PO DAILY blood pressur e 12/28/22 08/05/25 History ondansetron HCl 4 mg tablet 4 mg PO Q8H PRN nausea 08/05/25 History rimegepant 75 mg disintegrating 75 mg PO DAILY PRN rosalina ray 02/04/24 08/05/25 History tablet (Nurtec ODT) headache semaglutide 2 mg/dose (8 mg/3 mL) 2 mg subcut QWEEK 08/05/25 History subcutaneous pen injector (Ozempic) BIPAP -Bilevel Positive Airway 07/06/25 08/05/25 Hist ory Pressure ([facility] INFORMATIONAL USE ONLY) CPAP - Continuous Positive Airway 07/06/25 08/05/25 H istory Pressure([facility] INFORM[facility] USE ONLY) cefdinir 300 mg capsule 300 mg PO BID 7 days #14 cap s 07/07/25 08/05/25 Rx insulin glargine 100 unit/mL (3 10 unit (0.1 mL) subcu t QPM #15 mL 07/07/25 08/05/25 Rx mL) subcutaneous pen (Lantus Solostar U-100 Insulin) pen needle, diabetic 31 gauge x #100 ea 07/07/2508/05 Rx 5/32" topiramate 50 mg tablet 50 mg PO ONCE 08/05/2508/05 History PFSH Medical History Impingement of left shoulder Diabetes Fatty liver [...] Heart disease Triple bypass surgery Social History household members: none Smoking Status: Never smoker alcohol intake: never substance use type: does not use caffeine: Yes Type: coffee what type of physical activity do you participate in: walking frequency: daily seatbelt use: always do you feel safe at home: Yes HPI LEFT SHOULDER Details: This documentation accurately reflects the service provided and the decisions made by me, Dr. Brett Quiroga MD 08/05/25 0916. Part of today?s visit was documented by [ ], acting as scribe. TORI GRAY is a 45 year old F here today for 6 weeks FU Left shoulder arthroscopy, subacromial decompression, debridement. Overall the patient is doing much better than before surgery. Taking some more time off but also has to do quite a bit of shifts with 8 or 10 hours on her feet. Still some mild laterally based shoulder pain the patient tries not to sleep on that side. Ortho Exam General General: Yes no acute distress Neurologic: Yes alert and Yes oriented x3 Psychologic: Yes reasonable and appropriate Left Shoulder Skin/Wound: Yes CDI, Yes healed, No ecchymosis, No erythema and No swelling Testing: Yes Hawkin's, Yes PROM-Forward Elevation 0-180 and Yes PROM-External Rotation at side 0-60 SHOULDER: nvi mru ain/pin, ax nerves, rad pulse 2+, active FE 170, mild positive neers. Coding Level of Care Code Global Post Op Diagnoses Impingement of left shoulder M25.812 Assessment and Plan Assessment and Plan (1) Impingement of left shoulder: Status: Acute Plan: 45 year old F here today for 6 weeks FU Left shoulder arthroscopy, subacromial decompression, debridement. Overall the patient is slowly improving most likely still has some mild bursitisor irritation of the shoulder would recommend avoiding repetitive shoulder activities which is a little bit hard considering her jobs. The patient can follow-up either in 6 weeks time or as needed at this point. They understood nofurther questions or concerns. Plan Details Goals & Barriers: Goals Decrease spasm Improve intersegmental motion Decrease pain Decrease HAs Barriers Disc bulge 08/05/25 0957 <Electronically signed by Brett judge MD> Date _ Brett Quiroga MD Cosigner Signature: Date (if applicable) CC: ~ [facility] Work Phone: Reason for referral (narrative)* Diagnostic Procedure Only (Routine) - Pending Review Specialty Diagnoses / Procedures Referred By Contac t Referred To Contact XR IMAGING Diagnoses Rib pain Procedures XR RIBS/CHEST 3V AP RIB/OBLS/CXR LEFT RADEX RIBS UNI W/POSTEROANT CH MINIMUM 3 VIEWS Ivette Grimes MD [address] [place] [address] Xr Imaging Referral ID Status Reason Start Date Expiration Date Visits Requested Visits Authorized [id number] Pending Review Auto-Generat ed Referral 05/01/2022 05/31/2023 1 1 [facility] for referral (narrative)* - Pending Review Specialty Diagnoses / Procedures Referred By Contac t Referred To Contact Physical Therapy Diagnoses Chronic left shoulder pain Adhesive capsulitis of left shoulder Primary osteoarthritis of left shoulder Procedures CONSULT TO PHYSICAL THERAPY Adelina Marinelli, POULTRY PATHOLOGIST.MAINTAINER OPERATOR [address] [place] [address] Referral ID Status Reason Start Date Expiration Date V isits Requested Visits Authorized [id number] Pending Review 05/24/2022 08/22/2022 1 1 [facility] for referral (narrative)* Outpatient Procedure (Routine) - Closed Specialty Diagnoses / Procedures Referred By Contac t Referred To Contact [facility] Diagnoses Prolonged Q-T interval on ECG Procedures ECG COMPLETE ECG ROUTINE ECG W/LEAST 12 LDS W/I&R Ivette Grimes MD [address] [place] [address] [facility] [address] [place] [address] Referral ID Status Reason Start Date Expiration Date V isits Requested Visits Authorized [id number] Closed Auto-Generate d Referral 09/04/2022 09/04/2023 1 1 [facility] for referral (narrative)* Diagnostic Procedure Only (Routine) - Pending Review Specialty Diagnoses / Procedures Referred By Contac t Referred To Contact US IMAGING Diagnoses Soft tissue mass Procedures US HEAD/NECK SOFT TISSUE OTHER US SOFT TISSUE HEAD & NECK REAL TIME IMGE Ivette Charles MD [address] [place] [address] Us Imaging Referral ID Status Reason Start Date Expiration Date Visits Requested Visits Authorized [id number] Pending Review Auto-Generat ed Referral 01/31/2023 03/01/2024 1 1 [facility] for referral (narrative)* Outpatient Procedure (Routine) - Pending Review Specialty Diagnoses / Procedures Referred By Petra meek Referred To Contact [facility] Diagnoses Altered awareness, transient Procedures EPIL EEG ROUTINE ELECTROENCEPHALOGRAM REC COMA/SLEEP ONLY Fatuma Beckford PA-C [address] [place] [address] [facility] [place] [address] [place] [id number] Referral ID Status Reason Start Date Expiration Date Visits Requested Visits Authorized [id number] Pending Review Auto-Generat ed Referral 03/05/2023 03/05/2024 1 1 [facility] for referral (narrative)* Diagnostic Procedure Only (Routine) - Pending Review Specialty Diagnoses / Procedures Referred By Petra meek Referred To Contact BR IMAGING Diagnoses Encounter for screening mammogram for malignant neoplasm of breast Procedures FLASH SCREENING SCREENING MAMMOGRAPHY BI 2-VIEW BREAST INC CAD Ivette Grimes MD [address] [place] [address] [facility] [address] [place] [address] Referral ID Status Reason Start Date Expiration Date Visits Requested Visits Authorized [id number] Pending Review Auto-Generat ed Referral 06/06/2023 07/05/2024 1 1 * Transition of Care (Routine) - Ref Not Required Specialty Diagnoses / Procedures Referred By Contac t Referred To Contact Pain Management Diagnoses Chronic left shoulder pain Herniation of lumbar intervertebral disc with radiculopathy Procedures CONSULT TO PAIN MGT Ivette Grimes MD [address] [place] [address] Referral ID Status Reason Start Date Expiration Date Visits Requested Visits Authorized [id number] Ref Not Required PCP Requested Referral 06/06/2023 06/05/2024 1 1 [facility] for referral (narrative)* Diagnostic Procedure Only (Routine) - Closed Specialty Diagnoses / Procedures Referred By Contac t Referred To Contact MR IMAGING Diagnoses Post concussion syndrome Intractable acute post-traumatic headache Dizziness Cervicalgia Procedures MRI CERVICAL SPINE WO IVCON MRI SPINAL CANAL CERVICAL W/O CONTRAST MATRL Ivette Price Jr., MD [address] [facility] [address] [place] [address] [place] [address] Referral ID Status Reason Start Date Expiration Date V isits Requested Visits Authorized [id number] Closed Auto-Generat ed Referral Patient Cleared - Admin/Chairm an/Director advise to proceed or did not respond 02/26/2023 02/28/2023 1 1 * Diagnostic Procedure Only (Routine) - Closed Specialty Diagnoses / Procedures Referred By Contac t Referred To Contact MR IMAGING Diagnoses Post concussion syndrome Intractable acute post-traumatic headache Dizziness Cervicalgia Procedures MRI BRAIN WO IVCON MRI BRAIN BRAIN STEM W/O CONTRAST MATERIAL Ivette Price Jr., MD [address] [facility] [address] [place] [address] [place] [address] Referral ID Status Reason Start Date Expiration Date V isits Requested Visits Authorized [id number] Closed Auto-Generat ed Referral Patient Cleared - Admin/Chairm an/Director advise to proceed or did not respond 02/26/2023 02/28/2023 1 1 [facility] for referral (narrative)* Diagnostic Procedure Only (Routine) - Pending Review Specialty Diagnoses / Procedures Referred By Vladimirac t Referred To Contact BR IMAGING Diagnoses Encounter for screening mammogram for malignant neoplasm of breast Procedures FLASH SCREENING W JAQUELIN SCREENING DIGITAL BREAST TOMOSYNTHESIS BI SCREENING MAMMOGRAPHY BI 2-VIEW BREAST INC Ivette Rey MD [address] [place] [address] [facility] [address] [place] [address] Referral ID Status Reason Start Date Expiration Date Visits Requested Visits Authorized [id number] Pending Review Auto-Generat ed Referral 12/09/2023 01/07/2025 1 1 [facility] for referral (narrative)* Diagnostic Procedure Only (Urgent) - Closed Specialty Diagnoses / Procedures Referred By Petra t Referred To Contact XR IMAGING Diagnoses Pain of right heel Procedures XR FOOT GENERAL 3V AP/LAT/OBL RIGHT RADEX FOOT COMPLETE MINIMUM 3 VIEWS Nicole Anton PA-C [address] [place] [address] [place] [address] Referral ID Status Reason Start Date Expiration Date V isits Requested Visits Authorized [id number] Closed Auto-Generate d Referral 05/28/2023 06/26/2024 1 1 [facility] for referral (narrative)No reason for referral [facility] Work [facility]: Reason for visit Narrative* Diagnostic Procedure Only (Routine) - Closed Specialty Diagnoses / Procedures Referred By Petra t Referred To Contact MR IMAGING Diagnoses Post concussion syndrome Intractable acute post-traumatic headache Dizziness Cervicalgia Procedures MRI CERVICAL SPINE WO IVCON MRI SPINAL CANAL CERVICAL W/O CONTRAST Ivette Ansari Jr., MD [address] [facility] [address] [place] [address] [place] [address] Referral ID Status Reason Start Date Expiration Date V isits Requested Visits Authorized [id number] Closed Auto-Generat ed Referral Patient Cleared - Admin/Chairm an/Director advise to proceed or did not respond 02/26/2023 02/28/2023 1 [facility] Diagnostic Procedure Only (Urgent) - Closed Specialty Diagnoses / Procedures Referred By Contac t Referred To Contact XR IMAGING Diagnoses Pain of right heel Procedures XR FOOT GENERAL 3V AP/LAT/OBL RIGHT RADEX FOOT COMPLETE MINIMUM 3 VIEWS Nicole Anton, JONNY [address] [place] [address] [place] [address] Referral ID Status Reason Start Date Expiration Date V isits Requested Visits Authorized [id number] Closed Auto-Generate d Referral 05/28/2023 06/26/2024 1 1 [facility] Family History No Family History Records [...] Will No November 21 3:58pm Power of Nurse Informatics Educator No November 21, 2021 3:58pm Advance Directive Response Recorded Date/ Time Advance Directives No November 21, 2021 3:58pm Living Will No February 27, 2022 10:01am Power of Nurse Informatics Educator No February 27 10:01am Advance Directive Response Recorded Date/ Time Advance Directives No November 21, 2021 2:58pm Living Will No February 27, 2022 9:01am Power of Nurse Informatics Educator No February 27 9:01am Advance Directive Response Recorded Date/ Time Advance Directives No November 21, 2021 2:58pm Living Will No November 24 11:49am Power of Nurse Informatics Educator No November 24, 2022 11:49am Advance Directive Response Recorded Date/ Time Advance Directives No November 21, 2021 2:58pm Living Will No November 27 3:43pm Power of Nurse Informatics Educator No November 27, 2022 3:43pm Advance Directive Response Recorded Date/ Time Advance Directives No November 21, 2021 3:58pm Living Will No December 03 7:35pm Power of Nurse Informatics Educator No December 03, 2022 7:35pm Advance Directive Response Recorded Date/ Time Advance Directives No November 21, 2021 3:58pm Living Will No May 20, 2023 9:41pm Power of Nurse Informatics Educator No May 20 9:41pm Advance Directive Response Recorded Date/ Time Advance Directives No November 21, 2021 3:58pm Living Will No August 05 9:54am Power of Nurse Informatics Educator No August 05 9:54am Advance Directive Response Recorded Date/ Time Advance Directives No November 21, 2021 2:58pm Living Will No August 05 12:04pm Power of Nurse Informatics Educator No August 05 12:04pm Advance Directive Response Recorded Date/ Time Advance Directives No November 21, 2021 2:58pm Living Will No October 27 023 4:06pm Power of Nurse Informatics Educator No October 27, 2023 4:06pm Advance Directive Response Recorded Date/ Time Advance Directives No November 21, 2021 3:58pm Living Will No February 04, 2024 1:16am Power of Nurse Informatics Educator No February 03 1:16am Advance Directive Response Recorded Date/ Time Advance Directives No October 07, 2024 8:43am Living Will No October 16, 024 10:17pm Do you have a Healthcare Power of Nurse Informatics Educator? No October 16, 2024 10:17pm Living Will No November 11 7:01am Do you have a Healthcare Power of Nurse Informatics Educator? No November 11, 2024 7:01am Advance Directive Response Recorded Date/ Time Advance Directives No March 09, 2025 9:20am Advance Directive Response Recorded Date/ Time Advance Directives No March 09, 2025 9:20am Do you have a Healthcare Power of Nurse Informatics Educator? No June 10, 2025 9:08am Advance Directive Response Recorded Date/ Time Advance Directives No March 09, 2025 9:20am Do you have a Healthcare Power of Nurse Informatics Educator? No June 10, 2025 9:08am Do you have a Healthcare Power of Nurse Informatics Educator? No July 05, 2025 11:35pm Advance Directive Response Recorded Date/ Time Do you have a Healthcare Power of Nurse Informatics Educator? No June 10, 2025 9:08am Do you have a Healthcare Power of Nurse Informatics Educator? No July 05, 2025 11:35pm Advance Directives No March 09, 2025 9:20am [...] 200 Units, INTRAMUSCULAR, ONCE, 1 dose, On Tu01/22/23 at 1130, REFRIGERATE - Pharmaceutical Waste: Lab [...] Referred By Petra t Referred To Contact Diagnoses Intractable migraine without aura and without status migrainosus Procedures CONSULT TO HEADACHE CLINIC OFFICE/OUTPATIENT [facility] 60-74 MINUTES Tara Gillette, POULTRY PATHOLOGIST.MAINTAINER OPERATOR [address] [id number] Referral ID Status Reason Start Date Expiration Date Visits Requested Visits Authorized [id number] Authorized PCP Requested Referral 06/07/2022 06/07/2023 1 1 Specialty Diagnoses / Procedures Referred By Petra t Referred To Contact MR IMAGING Diagnoses Post concussion syndrome Intractable acute post-traumatic headache Dizziness Cervicalgia Procedures MRI CERVICAL SPINE WO IVCON MRI SPINAL CANAL CERVICAL W/O CONTRAST MATRL Ivette Price Jr., MD [address] [facility] [address] [place] [address] Mr Imaging Referral ID Status Reason Start Date Expiration Date Visits Requested Visits Authorized [id number] Pending Review Auto-Generat ed Referral 12/07/2022 01/06/2024 1 1 Specialty Diagnoses / Procedures Referred By Contac t Referred To Contact MR IMAGING Diagnoses Post concussion syndrome Intractable acute post-traumatic headache Dizziness Cervicalgia Procedures MRI BRAIN WO IVCON MRI BRAIN BRAIN STEM W/O CONTRAST MATERIAL Ivette Price Jr., MD [address] [facility] [address] [place] [address] Mr Imaging Referral ID Status Reason Start Date Expiration Date Visits Requested Visits Authorized [id number] Pending Review Auto-Generat ed Referral 12/07/2022 01/06/2024 1 1 Specialty Diagnoses / Procedures Referred By Contac t Referred To Contact CT IMAGING Diagnoses Soft tissue mass Procedures CT NECK SOFT TISSUE W IVCON CT SOFT TISSUE NECK W/CONTRAST MATERIAL Ivette Grimes MD [address] [place] [address] Ct Imaging Referral ID Status Reason Start Date Expiration Date Visits Requested Visits Authorized [id number] Pending Review Auto-Generat ed Referral 02/28/2023 03/29/2024 1 1 Specialty Diagnoses / Procedures Referred By Contac t Referred To Contact [facility] Diagnoses Post concussive syndrome Procedures CONSULT TO SPEECH THERAPY OFFICE/OUTPATIENT [facility] 60-74 MINUTES Fatuma Beckford PA-C [address] [place] [id number] [facility] [address] [place] [address] Referral ID Status Reason Start Date Expiration Date Visits Requested Visits Authorized [id number] Pending Review Auto-Generat ed Referral 05/17/2023 05/16/2024 1 1 Specialty Diagnoses / Procedures Referred By Contac t Referred To Contact Fatuma Beckford PA-C [address] [place] [id number] Referral ID Status Reason Start Date Expiration Date Visits Re quested Visits Authorized [id number] Closed 1 1 Specialty Diagnoses / Procedures Referred By Contac t Referred To Contact Diagnoses Type 2 diabetes mellitus with microalbuminuria, with long-term current use of insulin ([facility]) Ivette Grimes MD [address] [place] [address] Referral ID Status Reason Start Date Expiration Date Visits Re quested Visits Authorized [id number] Closed 1 1 Chief Complaint and Reason [...] pain 1 Y FU 2 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 ABN EKG (SYDNEY) Back [...] pain 1 Y FU 2 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 ABN EKG (SYDNEY) Back [...] pain 1 Y FU 2 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 ABN EKG (SYDNEY) Back [...] 10:30am Segmental and somatic dysfunction of pel jaill region June 01, 2025 10:30am Segmental and [...] 9:49am Segmental and somatic dysfunction of pel ajlil region April 21, 2025 9:49am Segmental and [...] 6:20am Impingement of left shoulder June 9:12am Chief Complaint Admit Date Back pain March [...] left shoulder June 25, 2025 9: 12am sob July 05, 2025 9:35pm HHS, 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, JOHN, ACUTE ON DIRECTOR OF BLOOD TIMMY ANEMIA July 05, 2025 9:46pm Reason for Visit Admit Date Segmental and [...] 2025 9:27am Disc displacement, lumbar June 17, 9:27am Impingement of left shoulder June 6:20am Impingement of left shoulder June 9:12am Complicated urinary tract infection Sept [id number] 9:46pm Sepsis July 05, 2025 9:46pm Chief Complaint Admit Date Back pain March [...] left shoulder June 25, 2025 9: 12am sob July 05, 2025 9:35pm HHS, 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, JOHN, ACUTE ON DIRECTOR OF BLOOD TIMMY ANEMIA July 05, 2025 9:46pm HHS, 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, JOHN, ACUTE ON DIRECTOR OF BLOOD TIMMY ANEMIA July 06, 2025 9:51am HHS, 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, JOHN, ACUTE ON DIRECTOR OF BLOOD TIMMY ANEMIA July 07, 2025 7:19am Chief Complaint Admit Date LEFT SHOULDER March 22, 2025 8:58a m [...] left shoulder June 25, 2025 9: 12am sob July 05, 2025 9:35pm HHS, 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, JOHN, ACUTE ON DIRECTOR OF BLOOD TIMMY ANEMIA July 05, 2025 9:46pm HHS, 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, JOHN, ACUTE ON DIRECTOR OF BLOOD TIMMY ANEMIA July 06, 2025 9:51am HHS, 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, JOHN, ACUTE ON DIRECTOR OF BLOOD TIMMY ANEMIA July 07, 2025 7:19am left shoulder July 09, 2025 9:21am Reason for Visit Admit Date Left shoulder pain March 22, 2025 8:58a [...] 6:20am Impingement of left shoulder June 9:12am Complicated urinary tract infection Sept [id number] 9:46pm Sepsis July 05, 2025 9:46pm Impingement of left shoulder July [id number] 9:21am Chief Complaint Admit Date PAIN, WEAKNESS, FAILED PT April 17 11:55am [...] left shoulder June 25, 2025 9: 12am sob July 05, 2025 9:35pm HHS, 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, JOHN, ACUTE ON DIRECTOR OF BLOOD TIMMY ANEMIA July 05, 2025 9:46pm HHS, 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, JOHN, ACUTE ON DIRECTOR OF BLOOD TIMMY ANEMIA July 06, 2025 9:51am HHS, 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, JOHN, ACUTE ON DIRECTOR OF BLOOD TIMMY ANEMIA July 07, 2025 7:19am left shoulder July 09, 2025 9:21am Reason for Visit Admit Date Segmental and [...] 6:20am Impingement of left shoulder June 9:12am Complicated urinary tract infection Sept [id number] 9:46pm Sepsis July 05, 2025 9:46pm Impingement of left shoulder July [id number] 9:21am Chief Complaint Admit Date PAIN, WEAKNESS, FAILED PT April 17 11:55am [...] left shoulder June 25, 2025 9: 12am sob July 05, 2025 9:35pm HHS, 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, JOHN, ACUTE ON DIRECTOR OF BLOOD TIMMY ANEMIA July 05, 2025 9:46pm HHS, 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, JOHN, ACUTE ON DIRECTOR OF BLOOD TIMMY ANEMIA July 06, 2025 9:51am HHS, 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, JOHN, ACUTE ON DIRECTOR OF BLOOD TIMMY ANEMIA July 07, 2025 7:19am left shoulder July 09, 2025 9:21am LEFT SHOULDER August 05, 2025 9: 12am Reason for Visit Admit [...] 6:20am Impingement of left shoulder June 9:12am Complicated urinary tract infection Sept 2024 9:46pm Sepsis July 05, 2025 9:46pm Impingement of left shoulder July [id number] 9:21am Impingement of left shoulder August 9:12am Summary Purpose Additional Source Comments Source Comments (unrecognize d section and content) In the event this informatio n is protected by the Federal Confidentiality of Alcohol and Drug Abuse Patient Records regulations: The Federal rules restrict any use of the information to criminally investigate or prosecute any alcohol or drug abuse patient.[facility] the event this information is protected by the Federal Confidentiality of Alcohol and Drug Abuse Patient Records regulations: The Federal rules restrict any use of the information to criminally investigate or prosecute any alcohol or drug abuse patient.[facility] HospitalIn the event this information is protected by the Federal Confidentiality of Alcohol and Drug Abuse Patient Records regulations: The Federal rules restrict any use of the information to criminally investigate or prosecute any alcohol or drug abuse patient.[facility]In the event this information is protected by the Federal Confidentiality of Alcohol and Drug Abuse Patient Records regulations: The Federal rules restrict any use of the information to criminally investigate or prosecute any alcohol or drug abuse patient.[facility] HospitalIn the event this information is protected by the Federal Confidentiality of Alcohol and Drug Abuse Patient Records regulations: The Federal rules restrict any use of the information to criminally investigate or prosecute any alcohol or drug abuse patient.[facility] HospitalIn the event this information is protected by the Federal Confidentiality of Alcohol and Drug Abuse Patient Records regulations: The Federal rules restrict any use of the information to criminally investigate or prosecute any alcohol or drug abuse patient.[facility] HospitalIn the event this information is protected by the Federal Confidentiality of Alcohol and Drug Abuse Patient Records regulations: The Federal rules restrict any use of the information to criminally investigate or prosecute any alcohol or drug abuse patient.[facility] HospitalIn the event this information is protected by the Federal Confidentiality of Alcohol and Drug Abuse Patient Records regulations: The Federal rules restrict any use of the information to criminally investigate or prosecute any alcohol or drug abuse patient.[facility] HospitalIn the event this information is protected by the Federal Confidentiality of Alcohol and Drug Abuse Patient Records regulations: The Federal rules restrict any use of the information to criminally investigate or prosecute any alcohol or drug abuse patient.[facility] HospitalIn the event this information is protected by the Federal Confidentiality of Alcohol and Drug Abuse Patient Records regulations: The Federal rules restrict any use of the information to criminally investigate or prosecute any alcohol or drug abuse patient.[facility] HospitalIn the event this information is protected by the Federal Confidentiality of Alcohol and Drug Abuse Patient Records regulations: The Federal rules restrict any use of the information to criminally investigate or prosecute any alcohol or drug abuse patient.[facility] HospitalIn the event this information is protected by the Federal Confidentiality of Alcohol and Drug Abuse Patient Records regulations: The Federal rules restrict any use of the information to criminally investigate or prosecute any alcohol or drug abuse patient.[facility] HospitalIn the event this information is protected by the Federal Confidentiality of Alcohol and Drug Abuse Patient Records regulations: The Federal rules restrict any use of the information to criminally investigate or prosecute any alcohol or drug abuse patient.[facility] HospitalIn the event this information is protected by the Federal Confidentiality of Alcohol and Drug Abuse Patient Records regulations: The Federal rules restrict any use of the information to criminally investigate or prosecute any alcohol or drug abuse patient.[facility] HospitalIn the event this information is protected by the Federal Confidentiality of Alcohol and Drug Abuse Patient Records regulations: The Federal rules restrict any use of the information to criminally investigate or prosecute any alcohol or drug abuse patient.[facility] HospitalIn the event this information is protected by the Federal Confidentiality of Alcohol and Drug Abuse Patient Records regulations: The Federal rules restrict any use of the information to criminally investigate or prosecute any alcohol or drug abuse patient.[facility] HospitalIn the event this information is protected by the Federal Confidentiality of Alcohol and Drug Abuse Patient Records regulations: The Federal rules restrict any use of the information to criminally investigate or prosecute any alcohol or drug abuse patient.[facility] HospitalIn the event this information is protected by the Federal Confidentiality of Alcohol and Drug Abuse Patient Records regulations: The Federal rules restrict any use of the information to criminally investigate or prosecute any alcohol or drug abuse patient.[facility] HospitalIn the event this information is protected by the Federal Confidentiality of Alcohol and Drug Abuse Patient Records regulations: The Federal rules restrict any use of the information to criminally investigate or prosecute any alcohol or drug abuse patient.[facility] HospitalIn the event this information is protected by the Federal Confidentiality of Alcohol and Drug Abuse Patient Records regulations: The Federal rules restrict any use of the information to criminally investigate or prosecute any alcohol or drug abuse patient.[facility] HospitalIn the event this information is protected by the Federal Confidentiality of Alcohol and Drug Abuse Patient Records regulations: The Federal rules restrict any use of the information to criminally investigate or prosecute any alcohol or drug abuse patient.[facility] HospitalIn the event this information is protected by the Federal Confidentiality of Alcohol and Drug Abuse Patient Records regulations: The Federal rules restrict any use of the information to criminally investigate or prosecute any alcohol or drug abuse patient.[facility] HospitalIn the event this information is protected by the Federal Confidentiality of Alcohol and Drug Abuse Patient Records regulations: The Federal rules restrict any use of the information to criminally investigate or prosecute any alcohol or drug abuse patient.[facility] HospitalIn the event this information is protected by the Federal Confidentiality of Alcohol and Drug Abuse Patient Records regulations: The Federal rules restrict any use of the information to criminally investigate or prosecute any alcohol or drug abuse patient.[facility] HospitalIn the event this information is protected by the Federal Confidentiality of Alcohol and Drug Abuse Patient Records regulations: The Federal rules restrict any use of the information to criminally investigate or prosecute any alcohol or drug abuse patient.[facility] HospitalIn the event this information is protected by the Federal Confidentiality of Alcohol and Drug Abuse Patient Records regulations: The Federal rules restrict any use of the information to criminally investigate or prosecute any alcohol or drug abuse patient.[facility] HospitalIn the event this information is protected by the Federal Confidentiality of Alcohol and Drug Abuse Patient Records regulations: The Federal rules restrict any use of the information to criminally investigate or prosecute any alcohol or drug abuse patient.[facility] HospitalIn the event this information is protected by the Federal Confidentiality of Alcohol and Drug Abuse Patient Records regulations: The Federal rules restrict any use of the information to criminally investigate or prosecute any alcohol or drug abuse patient.[facility] HospitalIn the event this information is protected by the Federal Confidentiality of Alcohol and Drug Abuse Patient Records regulations: The Federal rules restrict any use of the information to criminally investigate or prosecute any alcohol or drug abuse patient.[facility] HospitalIn the event this information is protected by the Federal Confidentiality of Alcohol and Drug Abuse Patient Records regulations: The Federal rules restrict any use of the information to criminally investigate or prosecute any alcohol or drug abuse patient.[facility] HospitalIn the event this information is protected by the Federal Confidentiality of Alcohol and Drug Abuse Patient Records regulations: The Federal rules restrict any use of the information to criminally investigate or prosecute any alcohol or drug abuse patient.[facility] HospitalIn the event this information is protected by the Federal Confidentiality of Alcohol and Drug Abuse Patient Records regulations: The Federal rules restrict any use of the information to criminally investigate or prosecute any alcohol or drug abuse patient.[facility] HospitalIn the event this information is protected by the Federal Confidentiality of Alcohol and Drug Abuse Patient Records regulations: The Federal rules restrict any use of the information to criminally investigate or prosecute any alcohol or drug abuse patient.[facility] HospitalIn the event this information is protected by the Federal Confidentiality of Alcohol and Drug Abuse Patient Records regulations: The Federal rules restrict any use of the information to criminally investigate or prosecute any alcohol or drug abuse patient.[facility] HospitalIn the event this information is protected by the Federal Confidentiality of Alcohol and Drug Abuse Patient Records regulations: The Federal rules restrict any use of the information to criminally investigate or prosecute any alcohol or drug abuse patient.[facility] HospitalIn the event this information is protected by the Federal Confidentiality of Alcohol and Drug Abuse Patient Records regulations: The Federal rules restrict any use of the information to criminally investigate or prosecute any alcohol or drug abuse patient.[facility] HospitalIn the event this information is protected by the Federal Confidentiality of Alcohol and Drug Abuse Patient Records regulations: The Federal rules restrict any use of the information to criminally investigate or prosecute any alcohol or drug abuse patient.[facility] HospitalIn the event this information is protected by the Federal Confidentiality of Alcohol and Drug Abuse Patient Records regulations: The Federal rules restrict any use of the information to criminally investigate or prosecute any alcohol or drug abuse patient.[facility] HospitalIn the event this information is protected by the Federal Confidentiality of Alcohol and Drug Abuse Patient Records regulations: The Federal rules restrict any use of the information to criminally investigate or prosecute any alcohol or drug abuse patient.[facility] HospitalIn the event this information is protected by the Federal Confidentiality of Alcohol and Drug Abuse Patient Records regulations: The Federal rules restrict any use of the information to criminally investigate or prosecute any alcohol or drug abuse patient.[facility] HospitalIn the event this information is protected by the Federal Confidentiality of Alcohol and Drug Abuse Patient Records regulations: The Federal rules restrict any use of the information to criminally investigate or prosecute any alcohol or drug abuse patient.[facility] HospitalIn the event this information is protected by the Federal Confidentiality of Alcohol and Drug Abuse Patient Records regulations: The Federal rules restrict any use of the information to criminally investigate or prosecute any alcohol or drug abuse patient.[facility] HospitalIn the event this information is protected by the Federal Confidentiality of Alcohol and Drug Abuse Patient Records regulations: The Federal rules restrict any use of the information to criminally investigate or prosecute any alcohol or drug abuse patient.[facility] HospitalIn the event this information is protected by the Federal Confidentiality of Alcohol and Drug Abuse Patient Records regulations: The Federal rules restrict any use of the information to criminally investigate or prosecute any alcohol or drug abuse patient.[facility] HospitalIn the event this information is protected by the Federal Confidentiality of Alcohol and Drug Abuse Patient Records regulations: The Federal rules restrict any use of the information to criminally investigate or prosecute any alcohol or drug abuse patient.[facility] HospitalIn the event this information is protected by the Federal Confidentiality of Alcohol and Drug Abuse Patient Records regulations: The Federal rules restrict any use of the information to criminally investigate or prosecute any alcohol or drug abuse patient.[facility] HospitalIn the event this information is protected by the Federal Confidentiality of Alcohol and Drug Abuse Patient Records regulations: The Federal rules restrict any use of the information to criminally investigate or prosecute any alcohol or drug abuse patient.[facility] HospitalIn the event this information is protected by the Federal Confidentiality of Alcohol and Drug Abuse Patient Records regulations: The Federal rules restrict any use of the information to criminally investigate or prosecute any alcohol or drug abuse patient.[facility] HospitalIn the event this information is protected by the Federal Confidentiality of Alcohol and Drug Abuse Patient Records regulations: The Federal rules restrict any use of the information to criminally investigate or prosecute any alcohol or drug abuse patient.[facility] HospitalIn the event this information is protected by the Federal Confidentiality of Alcohol and Drug Abuse Patient Records regulations: The Federal rules restrict any use of the information to criminally investigate or prosecute any alcohol or drug abuse patient.[facility] HospitalIn the event this information is protected by the Federal Confidentiality of Alcohol and Drug Abuse Patient Records regulations: The Federal rules restrict any use of the information to criminally investigate or prosecute any alcohol or drug abuse patient.[facility] HospitalIn the event this information is protected by the Federal Confidentiality of Alcohol and Drug Abuse Patient Records regulations: The Federal rules restrict any use of the information to criminally investigate or prosecute any alcohol or drug abuse patient.[facility] HospitalIn the event this information is protected by the Federal Confidentiality of Alcohol and Drug Abuse Patient Records regulations: The Federal rules restrict any use of the information to criminally investigate or prosecute any alcohol or drug abuse patient.[facility] HospitalIn the event this information is protected by the Federal Confidentiality of Alcohol and Drug Abuse Patient Records regulations: The Federal rules restrict any use of the information to criminally investigate or prosecute any alcohol or drug abuse patient.[facility] HospitalIn the event this information is protected by the Federal Confidentiality of Alcohol and Drug Abuse Patient Records regulations: The Federal rules restrict any use of the information to criminally investigate or prosecute any alcohol or drug abuse patient.[facility] HospitalIn the event this information is protected by the Federal Confidentiality of Alcohol and Drug Abuse Patient Records regulations: The Federal rules restrict any use of the information to criminally investigate or prosecute any alcohol or drug abuse patient.[facility] HospitalIn the event this information is protected by the Federal Confidentiality of Alcohol and Drug Abuse Patient Records regulations: The Federal rules restrict any use of the information to criminally investigate or prosecute any alcohol or drug abuse patient.[facility] HospitalIn the event this information is protected by the Federal Confidentiality of Alcohol and Drug Abuse Patient Records regulations: The Federal rules restrict any use of the information to criminally investigate or prosecute any alcohol or drug abuse patient.[facility] HospitalIn the event this information is protected by the Federal Confidentiality of Alcohol and Drug Abuse Patient Records regulations: The Federal rules restrict any use of the information to criminally investigate or prosecute any alcohol or drug abuse patient.[facility] HospitalIn the event this information is protected by the Federal Confidentiality of Alcohol and Drug Abuse Patient Records regulations: The Federal rules restrict any use of the information to criminally investigate or prosecute any alcohol or drug abuse patient.[facility] HospitalIn the event this information is protected by the Federal Confidentiality of Alcohol and Drug Abuse Patient Records regulations: The Federal rules restrict any use of the information to criminally investigate or prosecute any alcohol or drug abuse patient.[facility] HospitalIn the event this information is protected by the Federal Confidentiality of Alcohol and Drug Abuse Patient Records regulations: The Federal rules restrict any use of the information to criminally investigate or prosecute any alcohol or drug abuse patient.[facility] HospitalIn the event this information is protected by the Federal Confidentiality of Alcohol and Drug Abuse Patient Records regulations: The Federal rules restrict any use of the information to criminally investigate or prosecute any alcohol or drug abuse patient.[facility] HospitalIn the event this information is protected by the Federal Confidentiality of Alcohol and Drug Abuse Patient Records regulations: The Federal rules restrict any use of the information to criminally investigate or prosecute any alcohol or drug abuse patient.[facility] HospitalIn the event this information is protected by the Federal Confidentiality of Alcohol and Drug Abuse Patient Records regulations: The Federal rules restrict any use of the information to criminally investigate or prosecute any alcohol or drug abuse patient.[facility] HospitalIn the event this information is protected by the Federal Confidentiality of Alcohol and Drug Abuse Patient Records regulations: The Federal rules restrict any use of the information to criminally investigate or prosecute any alcohol or drug abuse patient.[facility] HospitalIn the event this information is protected by the Federal Confidentiality of Alcohol and Drug Abuse Patient Records regulations: The Federal rules restrict any use of the information to criminally investigate or prosecute any alcohol or drug abuse patient.[facility] HospitalIn the event this information is protected by the Federal Confidentiality of Alcohol and Drug Abuse Patient Records regulations: The Federal rules restrict any use of the information to criminally investigate or prosecute any alcohol or drug abuse patient.[facility] HospitalIn the event this information is protected by the Federal Confidentiality of Alcohol and Drug Abuse Patient Records regulations: The Federal rules restrict any use of the information to criminally investigate or prosecute any alcohol or drug abuse patient.[facility] HospitalIn the event this information is protected by the Federal Confidentiality of Alcohol and Drug Abuse Patient Records regulations: The Federal rules restrict any use of the information to criminally investigate or prosecute any alcohol or drug abuse patient.[facility] HospitalIn the event this information is protected by the Federal Confidentiality of Alcohol and Drug Abuse Patient Records regulations: The Federal rules restrict any use of the information to criminally investigate or prosecute any alcohol or drug abuse patient.[facility] HospitalIn the event this information is protected by the Federal Confidentiality of Alcohol and Drug Abuse Patient Records regulations: The Federal rules restrict any use of the information to criminally investigate or prosecute any alcohol or drug abuse patient.[facility] HospitalIn the event this information is protected by the Federal Confidentiality of Alcohol and Drug Abuse Patient Records regulations: The Federal rules restrict any use of the information to criminally investigate or prosecute any alcohol or drug abuse patient.[facility] HospitalIn the event this information is protected by the Federal Confidentiality of Alcohol and Drug Abuse Patient Records regulations: The Federal rules restrict any use of the information to criminally investigate or prosecute any alcohol or drug abuse patient.[facility] HospitalIn the event this information is protected by the Federal Confidentiality of Alcohol and Drug Abuse Patient Records regulations: The Federal rules restrict any use of the information to criminally investigate or prosecute any alcohol or drug abuse patient.[facility] HospitalIn the event this information is protected by the Federal Confidentiality of Alcohol and Drug Abuse Patient Records regulations: The Federal rules restrict any use of the information to criminally investigate or prosecute any alcohol or drug abuse patient.[facility] HospitalIn the event this information is protected by the Federal Confidentiality of Alcohol and Drug Abuse Patient Records regulations: The Federal rules restrict any use of the information to criminally investigate or prosecute any alcohol or drug abuse patient.[facility] HospitalIn the event this information is protected by the Federal Confidentiality of Alcohol and Drug Abuse Patient Records regulations: The Federal rules restrict any use of the information to criminally investigate or prosecute any alcohol or drug abuse patient.[facility] HospitalIn the event this information is protected by the Federal Confidentiality of Alcohol and Drug Abuse Patient Records regulations: The Federal rules restrict any use of the information to criminally investigate or prosecute any alcohol or drug abuse patient.[facility] HospitalIn the event this information is protected by the Federal Confidentiality of Alcohol and Drug Abuse Patient Records regulations: The Federal rules restrict any use of the information to criminally investigate or prosecute any alcohol or drug abuse patient.[facility] HospitalIn the event this information is protected by the Federal Confidentiality of Alcohol and Drug Abuse Patient Records regulations: The Federal rules restrict any use of the information to criminally investigate or prosecute any alcohol or drug abuse patient.[facility] HospitalIn the event this information is protected by the Federal Confidentiality of Alcohol and Drug Abuse Patient Records regulations: The Federal rules restrict any use of the information to criminally investigate or prosecute any alcohol or drug abuse patient.[facility] HospitalIn the event this information is protected by the Federal Confidentiality of Alcohol and Drug Abuse Patient Records regulations: The Federal rules restrict any use of the information to criminally investigate or prosecute any alcohol or drug abuse patient.[facility] HospitalIn the event this information is protected by the Federal Confidentiality of Alcohol and Drug Abuse Patient Records regulations: The Federal rules restrict any use of the information to criminally investigate or prosecute any alcohol or drug abuse patient.[facility] HospitalIn the event this information is protected by the Federal Confidentiality of Alcohol and Drug Abuse Patient Records regulations: The Federal rules restrict any use of the information to criminally investigate or prosecute any alcohol or drug abuse patient.[facility] HospitalIn the event this information is protected by the Federal Confidentiality of Alcohol and Drug Abuse Patient Records regulations: The Federal rules restrict any use of the information to criminally investigate or prosecute any alcohol or drug abuse patient.[facility] HospitalIn the event this information is protected by the Federal Confidentiality of Alcohol and Drug Abuse Patient Records regulations: The Federal rules restrict any use of the information to criminally investigate or prosecute any alcohol or drug abuse patient.[facility] HospitalIn the event this information is protected by the Federal Confidentiality of Alcohol and Drug Abuse Patient Records regulations: The Federal rules restrict any use of the information to criminally investigate or prosecute any alcohol or drug abuse patient.[facility] HospitalIn the event this information is protected by the Federal Confidentiality of Alcohol and Drug Abuse Patient Records regulations: The Federal rules restrict any use of the information to criminally investigate or prosecute any alcohol or drug abuse patient.[facility] HospitalIn the event this information is protected by the Federal Confidentiality of Alcohol and Drug Abuse Patient Records regulations: The Federal rules restrict any use of the information to criminally investigate or prosecute any alcohol or drug abuse patient.[facility] HospitalIn the event this information is protected by the Federal Confidentiality of Alcohol and Drug Abuse Patient Records regulations: The Federal rules restrict any use of the information to criminally investigate or prosecute any alcohol or drug abuse patient.[facility] HospitalIn the event this information is protected by the Federal Confidentiality of Alcohol and Drug Abuse Patient Records regulations: The Federal rules restrict any use of the information to criminally investigate or prosecute any alcohol or drug abuse patient.[facility] HospitalIn the event this information is protected by the Federal Confidentiality of Alcohol and Drug Abuse Patient Records regulations: The Federal rules restrict any use of the information to criminally investigate or prosecute any alcohol or drug abuse patient.[facility] HospitalIn the event this information is protected by the Federal Confidentiality of Alcohol and Drug Abuse Patient Records regulations: The Federal rules restrict any use of the information to criminally investigate or prosecute any alcohol or drug abuse patient.[facility] HospitalIn the event this information is protected by the Federal Confidentiality of Alcohol and Drug Abuse Patient Records regulations: The Federal rules restrict any use of the information to criminally investigate or prosecute any alcohol or drug abuse patient.[facility] HospitalIn the event this information is protected by the Federal Confidentiality of Alcohol and Drug Abuse Patient Records regulations: The Federal rules restrict any use of the information to criminally investigate or prosecute any alcohol or drug abuse patient.[facility] HospitalIn the event this information is protected by the Federal Confidentiality of Alcohol and Drug Abuse Patient Records regulations: The Federal rules restrict any use of the information to criminally investigate or prosecute any alcohol or drug abuse patient.[facility] HospitalIn the event this information is protected by the Federal Confidentiality of Alcohol and Drug Abuse Patient Records regulations: The Federal rules restrict any use of the information to criminally investigate or prosecute any alcohol or drug abuse patient.[facility] HospitalIn the event this information is protected by the Federal Confidentiality of Alcohol and Drug Abuse Patient Records regulations: The Federal rules restrict any use of the information to criminally investigate or prosecute any alcohol or drug abuse patient.[facility] HospitalIn the event this information is protected by the Federal Confidentiality of Alcohol and Drug Abuse Patient Records regulations: The Federal rules restrict any use of the information to criminally investigate or prosecute any alcohol or drug abuse patient.[facility] HospitalIn the event this information is protected by the Federal Confidentiality of Alcohol and Drug Abuse Patient Records regulations: The Federal rules restrict any use of the information to criminally investigate or prosecute any alcohol or drug abuse patient.[facility] HospitalIn the event this information is protected by the Federal Confidentiality of Alcohol and Drug Abuse Patient Records regulations: The Federal rules restrict any use of the information to criminally investigate or prosecute any alcohol or drug abuse patient.[facility] HospitalIn the event this information is protected by the Federal Confidentiality of Alcohol and Drug Abuse Patient Records regulations: The Federal rules restrict any use of the information to criminally investigate or prosecute any alcohol or drug abuse patient.[facility] HospitalIn the event this information is protected by the Federal Confidentiality of Alcohol and Drug Abuse Patient Records regulations: The Federal rules restrict any use of the information to criminally investigate or prosecute any alcohol or drug abuse patient.[facility] HospitalIn the event this information is protected by the Federal Confidentiality of Alcohol and Drug Abuse Patient Records regulations: The Federal rules restrict any use of the information to criminally investigate or prosecute any alcohol or drug abuse patient.[facility] HospitalIn the event this information is protected by the Federal Confidentiality of Alcohol and Drug Abuse Patient Records regulations: The Federal rules restrict any use of the information to criminally investigate or prosecute any alcohol or drug abuse patient.[facility] HospitalIn the event this information is protected by the Federal Confidentiality of Alcohol and Drug Abuse Patient Records regulations: The Federal rules restrict any use of the information to criminally investigate or prosecute any alcohol or drug abuse patient.[facility] HospitalIn the event this information is protected by the Federal Confidentiality of Alcohol and Drug Abuse Patient Records regulations: The Federal rules restrict any use of the information to criminally investigate or prosecute any alcohol or drug abuse patient.[facility] HospitalIn the event this information is protected by the Federal Confidentiality of Alcohol and Drug Abuse Patient Records regulations: The Federal rules restrict any use of the information to criminally investigate or prosecute any alcohol or drug abuse patient.[facility] HospitalIn the event this information is protected by the Federal Confidentiality of Alcohol and Drug Abuse Patient Records regulations: The Federal rules restrict any use of the information to criminally investigate or prosecute any alcohol or drug abuse patient.[facility] HospitalIn the event this information is protected by the Federal Confidentiality of Alcohol and Drug Abuse Patient Records regulations: The Federal rules restrict any use of the information to criminally investigate or prosecute any alcohol or drug abuse patient.[facility] HospitalIn the event this information is protected by the Federal Confidentiality of Alcohol and Drug Abuse Patient Records regulations: The Federal rules restrict any use of the information to criminally investigate or prosecute any alcohol or drug abuse patient.[facility] HospitalIn the event this information is protected by the Federal Confidentiality of Alcohol and Drug Abuse Patient Records regulations: The Federal rules restrict any use of the information to criminally investigate or prosecute any alcohol or drug abuse patient.[facility] HospitalIn the event this information is protected by the Federal Confidentiality of Alcohol and Drug Abuse Patient Records regulations: The Federal rules restrict any use of the information to criminally investigate or prosecute any alcohol or drug abuse patient.[facility] HospitalIn the event this information is protected by the Federal Confidentiality of Alcohol and Drug Abuse Patient Records regulations: The Federal rules restrict any use of the information to criminally investigate or prosecute any alcohol or drug abuse patient.[facility] HospitalIn the event this information is protected by the Federal Confidentiality of Alcohol and Drug Abuse Patient Records regulations: The Federal rules restrict any use of the information to criminally investigate or prosecute any alcohol or drug abuse patient.[facility] HospitalIn the event this information is protected by the Federal Confidentiality of Alcohol and Drug Abuse Patient Records regulations: The Federal rules restrict any use of the information to criminally investigate or prosecute any alcohol or drug abuse patient.[facility] HospitalIn the event this information is protected by the Federal Confidentiality of Alcohol and Drug Abuse Patient Records regulations: The Federal rules restrict any use of the information to criminally investigate or prosecute any alcohol or drug abuse patient.[facility] HospitalIn the event this information is protected by the Federal Confidentiality of Alcohol and Drug Abuse Patient Records regulations: The Federal rules restrict any use of the information to criminally investigate or prosecute any alcohol or drug abuse patient.[facility] HospitalIn the event this information is protected by the Federal Confidentiality of Alcohol and Drug Abuse Patient Records regulations: The Federal rules restrict any use of the information to criminally investigate or prosecute any alcohol or drug abuse patient.[facility] HospitalIn the event this information is protected by the Federal Confidentiality of Alcohol and Drug Abuse Patient Records regulations: The Federal rules restrict any use of the information to criminally investigate or prosecute any alcohol or drug abuse patient.[facility] HospitalIn the event this information is protected by the Federal Confidentiality of Alcohol and Drug Abuse Patient Records regulations: The Federal rules restrict any use of the information to criminally investigate or prosecute any alcohol or drug abuse patient.[facility] HospitalIn the event this information is protected by the Federal Confidentiality of Alcohol and Drug Abuse Patient Records regulations: The Federal rules restrict any use of the information to criminally investigate or prosecute any alcohol or drug abuse patient.[facility] HospitalIn the event this information is protected by the Federal Confidentiality of Alcohol and Drug Abuse Patient Records regulations: The Federal rules restrict any use of the information to criminally investigate or prosecute any alcohol or drug abuse patient.[facility] HospitalIn the event this information is protected by the Federal Confidentiality of Alcohol and Drug Abuse Patient Records regulations: The Federal rules restrict any use of the information to criminally investigate or prosecute any alcohol or drug abuse patient.[facility] HospitalIn the event this information is protected by the Federal Confidentiality of Alcohol and Drug Abuse Patient Records regulations: The Federal rules restrict any use of the information to criminally investigate or prosecute any alcohol or drug abuse patient.[facility] HospitalIn the event this information is protected by the Federal Confidentiality of Alcohol and Drug Abuse Patient Records regulations: The Federal rules restrict any use of the information to criminally investigate or prosecute any alcohol or drug abuse patient.[facility] HospitalIn the event this information is protected by the Federal Confidentiality of Alcohol and Drug Abuse Patient Records regulations: The Federal rules restrict any use of the information to criminally investigate or prosecute any alcohol or drug abuse patient.[facility] HospitalIn the event this information is protected by the Federal Confidentiality of Alcohol and Drug Abuse Patient Records regulations: The Federal rules restrict any use of the information to criminally investigate or prosecute any alcohol or drug abuse patient.[facility] HospitalIn the event this information is protected by the Federal Confidentiality of Alcohol and Drug Abuse Patient Records regulations: The Federal rules restrict any use of the information to criminally investigate or prosecute any alcohol or drug abuse patient.[facility] HospitalIn the event this information is protected by the Federal Confidentiality of Alcohol and Drug Abuse Patient Records regulations: The Federal rules restrict any use of the information to criminally investigate or prosecute any alcohol or drug abuse patient.[facility] HospitalIn the event this information is protected by the Federal Confidentiality of Alcohol and Drug Abuse Patient Records regulations: The Federal rules restrict any use of the information to criminally investigate or prosecute any alcohol or drug abuse patient.[facility] HospitalIn the event this information is protected by the Federal Confidentiality of Alcohol and Drug Abuse Patient Records regulations: The Federal rules restrict any use of the information to criminally investigate or prosecute any alcohol or drug abuse patient.[facility] HospitalIn the event this information is protected by the Federal Confidentiality of Alcohol and Drug Abuse Patient Records regulations: The Federal rules restrict any use of the information to criminally investigate or prosecute any alcohol or drug abuse patient.[facility] HospitalIn the event this information is protected by the Federal Confidentiality of Alcohol and Drug Abuse Patient Records regulations: The Federal rules restrict any use of the information to criminally investigate or prosecute any alcohol or drug abuse patient.[facility] HospitalIn the event this information is protected by the Federal Confidentiality of Alcohol and Drug Abuse Patient Records regulations: The Federal rules restrict any use of the information to criminally investigate or prosecute any alcohol or drug abuse patient.[facility] HospitalIn the event this information is protected by the Federal Confidentiality of Alcohol and Drug Abuse Patient Records regulations: The Federal rules restrict any use of the information to criminally investigate or prosecute any alcohol or drug abuse patient.[facility] HospitalIn the event this information is protected by the Federal Confidentiality of Alcohol and Drug Abuse Patient Records regulations: The Federal rules restrict any use of the information to criminally investigate or prosecute any alcohol or drug abuse patient.[facility] HospitalIn the event this information is protected by the Federal Confidentiality of Alcohol and Drug Abuse Patient Records regulations: The Federal rules restrict any use of the information to criminally investigate or prosecute any alcohol or drug abuse patient.[facility] HospitalIn the event this information is protected by the Federal Confidentiality of Alcohol and Drug Abuse Patient Records regulations: The Federal rules restrict any use of the information to criminally investigate or prosecute any alcohol or drug abuse patient.[facility] HospitalIn the event this information is protected by the Federal Confidentiality of Alcohol and Drug Abuse Patient Records regulations: The Federal rules restrict any use of the information to criminally investigate or prosecute any alcohol or drug abuse patient.[facility] HospitalIn the event this information is protected by the Federal Confidentiality of Alcohol and Drug Abuse Patient Records regulations: The Federal rules restrict any use of the information to criminally investigate or prosecute any alcohol or drug abuse patient.[facility] HospitalIn the event this information is protected by the Federal Confidentiality of Alcohol and Drug Abuse Patient Records regulations: The Federal rules restrict any use of the information to criminally investigate or prosecute any alcohol or drug abuse patient.[facility] HospitalIn the event this information is protected by the Federal Confidentiality of Alcohol and Drug Abuse Patient Records regulations: The Federal rules restrict any use of the information to criminally investigate or prosecute any alcohol or drug abuse patient.[facility] HospitalIn the event this information is protected by the Federal Confidentiality of Alcohol and Drug Abuse Patient Records regulations: The Federal rules restrict any use of the information to criminally investigate or prosecute any alcohol or drug abuse patient.[facility] HospitalIn the event this information is protected by the Federal Confidentiality of Alcohol and Drug Abuse Patient Records regulations: The Federal rules restrict any use of the information to criminally investigate or prosecute any alcohol or drug abuse patient.[facility] HospitalIn the event this information is protected by the Federal Confidentiality of Alcohol and Drug Abuse Patient Records regulations: The Federal rules restrict any use of the information to criminally investigate or prosecute any alcohol or drug abuse patient.[facility] HospitalIn the event this information is protected by the Federal Confidentiality of Alcohol and Drug Abuse Patient Records regulations: The Federal rules restrict any use of the information to criminally investigate or prosecute any alcohol or drug abuse patient.[facility] HospitalIn the event this information is protected by the Federal Confidentiality of Alcohol and Drug Abuse Patient Records regulations: The Federal rules restrict any use of the information to criminally investigate or prosecute any alcohol or drug abuse patient.[facility] HospitalIn the event this information is protected by the Federal Confidentiality of Alcohol and Drug Abuse Patient Records regulations: The Federal rules restrict any use of the information to criminally investigate or prosecute any alcohol or drug abuse patient.[facility] HospitalIn the event this information is protected by the Federal Confidentiality of Alcohol and Drug Abuse Patient Records regulations: The Federal rules restrict any use of the information to criminally investigate or prosecute any alcohol or drug abuse patient.[facility] HospitalIn the event this information is protected by the Federal Confidentiality of Alcohol and Drug Abuse Patient Records regulations: The Federal rules restrict any use of the information to criminally investigate or prosecute any alcohol or drug abuse patient.[facility] HospitalIn the event this information is protected by the Federal Confidentiality of Alcohol and Drug Abuse Patient Records regulations: The Federal rules restrict any use of the information to criminally investigate or prosecute any alcohol or drug abuse patient.[facility] HospitalIn the event this information is protected by the Federal Confidentiality of Alcohol and Drug Abuse Patient Records regulations: The Federal rules restrict any use of the information to criminally investigate or prosecute any alcohol or drug abuse patient.[facility] HospitalIn the event this information is protected by the Federal Confidentiality of Alcohol and Drug Abuse Patient Records regulations: The Federal rules restrict any use of the information to criminally investigate or prosecute any alcohol or drug abuse patient.[facility] HospitalIn the event this information is protected by the Federal Confidentiality of Alcohol and Drug Abuse Patient Records regulations: The Federal rules restrict any use of the information to criminally investigate or prosecute any alcohol or drug abuse patient.[facility] HospitalIn the event this information is protected by the Federal Confidentiality of Alcohol and Drug Abuse Patient Records regulations: The Federal rules restrict any use of the information to criminally investigate or prosecute any alcohol or drug abuse patient.[facility] HospitalIn the event this information is protected by the Federal Confidentiality of Alcohol and Drug Abuse Patient Records regulations: The Federal rules restrict any use of the information to criminally investigate or prosecute any alcohol or drug abuse patient.[facility] HospitalIn the event this information is protected by the Federal Confidentiality of Alcohol and Drug Abuse Patient Records regulations: The Federal rules restrict any use of the information to criminally investigate or prosecute any alcohol or drug abuse patient.[facility] HospitalIn the event this information is protected by the Federal Confidentiality of Alcohol and Drug Abuse Patient Records regulations: The Federal rules restrict any use of the information to criminally investigate or prosecute any alcohol or drug abuse patient.[facility] HospitalIn the event this information is protected by the Federal Confidentiality of Alcohol and Drug Abuse Patient Records regulations: The Federal rules restrict any use of the information to criminally investigate or prosecute any alcohol or drug abuse patient.[facility] HospitalIn the event this information is protected by the Federal Confidentiality of Alcohol and Drug Abuse Patient Records regulations: The Federal rules restrict any use of the information to criminally investigate or prosecute any alcohol or drug abuse patient.[facility] HospitalIn the event this information is protected by the Federal Confidentiality of Alcohol and Drug Abuse Patient Records regulations: The Federal rules restrict any use of the information to criminally investigate or prosecute any alcohol or drug abuse patient.[facility] HospitalIn the event this information is protected by the Federal Confidentiality of Alcohol and Drug Abuse Patient Records regulations: The Federal rules restrict any use of the information to criminally investigate or prosecute any alcohol or drug abuse patient.[facility] HospitalIn the event this information is protected by the Federal Confidentiality of Alcohol and Drug Abuse Patient Records regulations: The Federal rules restrict any use of the information to criminally investigate or prosecute any alcohol or drug abuse patient.[facility] HospitalIn the event this information is protected by the Federal Confidentiality of Alcohol and Drug Abuse Patient Records regulations: The Federal rules restrict any use of the information to criminally investigate or prosecute any alcohol or drug abuse patient.[facility] HospitalIn the event this information is protected by the Federal Confidentiality of Alcohol and Drug Abuse Patient Records regulations: The Federal rules restrict any use of the information to criminally investigate or prosecute any alcohol or drug abuse patient.[facility] HospitalIn the event this information is protected by the Federal Confidentiality of Alcohol and Drug Abuse Patient Records regulations: The Federal rules restrict any use of the information to criminally investigate or prosecute any alcohol or drug abuse patient.[facility] HospitalIn the event this information is protected by the Federal Confidentiality of Alcohol and Drug Abuse Patient Records regulations: The Federal rules restrict any use of the information to criminally investigate or prosecute any alcohol or drug abuse patient.[facility] HospitalIn the event this information is protected by the Federal Confidentiality of Alcohol and Drug Abuse Patient Records regulations: The Federal rules restrict any use of the information to criminally investigate or prosecute any alcohol or drug abuse patient.[facility] HospitalIn the event this information is protected by the Federal Confidentiality of Alcohol and Drug Abuse Patient Records regulations: The Federal rules restrict any use of the information to criminally investigate or prosecute any alcohol or drug abuse patient.[facility] HospitalIn the event this information is protected by the Federal Confidentiality of Alcohol and Drug Abuse Patient Records regulations: The Federal rules restrict any use of the information to criminally investigate or prosecute any alcohol or drug abuse patient.[facility] HospitalIn the event this information is protected by the Federal Confidentiality of Alcohol and Drug Abuse Patient Records regulations: The Federal rules restrict any use of the information to criminally investigate or prosecute any alcohol or drug abuse patient.[facility] HospitalIn the event this information is protected by the Federal Confidentiality of Alcohol and Drug Abuse Patient Records regulations: The Federal rules restrict any use of the information to criminally investigate or prosecute any alcohol or drug abuse patient.[facility] HospitalIn the event this information is protected by the Federal Confidentiality of Alcohol and Drug Abuse Patient Records regulations: The Federal rules restrict any use of the information to criminally investigate or prosecute any alcohol or drug abuse patient.[facility] HospitalIn the event this information is protected by the Federal Confidentiality of Alcohol and Drug Abuse Patient Records regulations: The Federal rules restrict any use of the information to criminally investigate or prosecute any alcohol or drug abuse patient.[facility] HospitalIn the event this information is protected by the Federal Confidentiality of Alcohol and Drug Abuse Patient Records regulations: The Federal rules restrict any use of the information to criminally investigate or prosecute any alcohol or drug abuse patient.[facility] HospitalIn the event this information is protected by the Federal Confidentiality of Alcohol and Drug Abuse Patient Records regulations: The Federal rules restrict any use of the information to criminally investigate or prosecute any alcohol or drug abuse patient.[facility] HospitalIn the event this information is protected by the Federal Confidentiality of Alcohol and Drug Abuse Patient Records regulations: The Federal rules restrict any use of the information to criminally investigate or prosecute any alcohol or drug abuse patient.[facility] HospitalIn the event this information is protected by the Federal Confidentiality of Alcohol and Drug Abuse Patient Records regulations: The Federal rules restrict any use of the information to criminally investigate or prosecute any alcohol or drug abuse patient.[facility] HospitalIn the event this information is protected by the Federal Confidentiality of Alcohol and Drug Abuse Patient Records regulations: The Federal rules restrict any use of the information to criminally investigate or prosecute any alcohol or drug abuse patient.[facility] HospitalIn the event this information is protected by the Federal Confidentiality of Alcohol and Drug Abuse Patient Records regulations: The Federal rules restrict any use of the information to criminally investigate or prosecute any alcohol or drug abuse patient.[facility] HospitalIn the event this information is protected by the Federal Confidentiality of Alcohol and Drug Abuse Patient Records regulations: The Federal rules restrict any use of the information to criminally investigate or prosecute any alcohol or drug abuse patient.[facility] HospitalIn the event this information is protected by the Federal Confidentiality of Alcohol and Drug Abuse Patient Records regulations: The Federal rules restrict any use of the information to criminally investigate or prosecute any alcohol or drug abuse patient.[facility] HospitalIn the event this information is protected by the Federal Confidentiality of Alcohol and Drug Abuse Patient Records regulations: The Federal rules restrict any use of the information to criminally investigate or prosecute any alcohol or drug abuse patient.[facility] HospitalIn the event this information is protected by the Federal Confidentiality of Alcohol and Drug Abuse Patient Records regulations: The Federal rules restrict any use of the information to criminally investigate or prosecute any alcohol or drug abuse patient.[facility] HospitalIn the event this information is protected by the Federal Confidentiality of Alcohol and Drug Abuse Patient Records regulations: The Federal rules restrict any use of the information to criminally investigate or prosecute any alcohol or drug abuse patient.[facility] HospitalIn the event this information is protected by the Federal Confidentiality of Alcohol and Drug Abuse Patient Records regulations: The Federal rules restrict any use of the information to criminally investigate or prosecute any alcohol or drug abuse patient.[facility] Reason for Visit (unrecogniz ed section and content) Reason Comments Follow Up Specialty Diagnoses / Procedures Referred By Contac t Referred To Contact Family Medicine / FAMILY MEDICINE Diagnoses Follow up. Procedures 4C EST Ivette Grimes MD [address] [place] [address] Ivetet Grimes MD [address] [place] [address] Referral ID Status Reason Start Date Expiration Date V isits Requested Visits Authorized [id number] Pending Review 01/31/2023 05/01/2023 1 1 Reason Comments New Patient Specialty Diagnoses / Procedures Referred By Contac t Referred To Contact Pain Management Diagnoses Chronic left shoulder pain Procedures CONSULT TO PAIN MGT OFFICE/OUTPATIENT [facility] MDM 60-74 MINUTES Ivette Grimes MD [address] [place], [place] [id number] Referral ID Status Reason Start Date Expiration Date V isits Requested Visits Authorized [id number] Closed PCP Requested Referral 01/22/2022 01/22/2023 1 [...] migrainosus Procedures CONSULT TO NEUROLOGY OFFICE/OUTPATIENT [facility] MDM 60-74 MINUTES Ivette Grimes MD [facility] [place] [address] Referral ID Status Reason Start Date Expiration Date V isits Requested Visits Authorized [id number] Closed PCP Requested Referral 12/25/2021 12/25/2022 1 1 Reason Onset Date Comments Refill Request 04/16/2022 Reason Comments Follow Up shoulder pain, switc h medication back to gabapentin Specialty Diagnoses / Procedures Referred By Vladimirac t Referred To Contact Family Practice / FAMILY MEDICINE Diagnoses Follow-up exam follow up Procedures OFFICE/OUTPATIENT ESTABLISHED HIGH MDM 40-54 MIN MYC OFFICE VISIT Ivette Grimes MD [address] [place] [address] Ivette Grimes MD [address] [place] [address] Referral ID Status Reason Start Date Expiration Date Visits Re quested Visits Authorized [id number] Closed 04/17/2022 11/03/2022 1 1 Reason Onset Date Comments Refill Request 05/03/2022 Reason Comments Procedure Specialty Diagnoses / Procedures Referred By Petra t Referred To Contact Pain Management / PAIN MANAGEMENT Diagnoses Neuralgia and neuritis, unspecified Adhesive capsulitis of left shoulder ultrasound guided left suprascapular nerve blockade (no steroids) Procedures INJECTION AA&/STRD SUPRASCAPULAR NERVE US GUIDANCE NEEDLE PLACEMENT IMG S&I PROCEDURE 20 Elle Rasheed MD [address] [address] Elle Rasheed MD [address] [place] [address] Referral ID Status Reason Start Date Expiration Date Visits Re quested Visits Authorized [id number] Closed 05/10/2022 06/10/2022 1 1 Reason Comments Procedure Follow Up Reason Comments Follow Up Specialty Diagnoses / Procedures Referred By Contac t Referred To Contact Pain Management / PAIN MANAGEMENT Diagnoses OV & follow up inj Procedures OFFICE/OUTPATIENT ESTABLISHED MOD MDM 30-39 MIN EST PATIENT Elle Rasheed MD [address] [address] Adelina Marinelli, POULTRY PATHOLOGIST.MAINTAINER OPERATOR [address] [place] [address] Referral ID Status Reason Start Date Expiration Date Visits Re quested Visits Authorized [id number] Closed 11/04/2021 11/03/2022 1 1 Reason Comments Appointment Reason Comments Headache follow up Specialty Diagnoses / Procedures Referred By Contac t Referred To Contact Neurology Diagnoses Migraine with aura, not intractable, without status migrainosus Procedures CONSULT TO NEUROLOGY OFFICE/OUTPATIENT [facility] 60-74 MINUTES Ivette Grimes MD [address] [place] [id number] Reason Comments Orders Reason Onset Date Comments Refill Request 06/22/2022 Reason Onset Date Comments Refill Request 07/10/2022 Reason Comments Patient Update Injection questions Reason Comments Chronic Migraine X 6-7 years Specialty Diagnoses / Procedures Referred By Contac t Referred To Contact Diagnoses Intractable migraine without aura and without status migrainosus Procedures CONSULT TO HEADACHE CLINIC OFFICE/OUTPATIENT [facility] 60-74 MINUTES Tara Gillette, THOM.MAINTAINER OPERATOR [address] [facility] [place] [address] Referral ID Status Reason Start Date Expiration Date V isits Requested Visits Authorized [id number] Closed PCP Requested Referral 06/07/2022 06/07/2023 1 [...] Diagnoses Follow-up exam follow up Procedures OFFICE/OUTPATIENT [facility] 40-54 MIN MYC OFFICE VISIT Ivette Grimes MD [facility] [place] [address] Ivette Grimes MD [address] [place] [address] Referral ID Status Reason Start Date Expiration Date V isits Requested Visits Authorized [id number] Authorized 04/17/2022 11/03/2022 99 99 Reason Comments Patient Update Reason Comments Follow Up Acute Visit Reason Comments Fatigue Specialty Diagnoses / Procedures Referred By Contac t Referred To Contact Family Medicine / FAMILY MEDICINE Diagnoses dizzy-follow up from virtual with Dr Bianchi 09/03 Procedures 4C EST Ivette Grimes MD [address] [place] [address] Ivette Grimes MD [address] [place] [address] Referral ID Status Reason Start Date Expiration Date Visits Re quested Visits Authorized [id number] Closed 09/04/2022 12/03/2022 1 1 Reason Onset [...] MINUTES VIDEO PSYC/PSYL NEW Self Grace Coronel, POULTRY PATHOLOGIST.MAINTAINER OPERATOR [address] [place] [address] Referral ID Status Reason Start Date Expiration Date Visits Re quested Visits Authorized [id number] Closed 11/04/2021 11/03/2022 1 1 Reason Comments Follow Up Pain (Shoulder Pain) Left Specialty Diagnoses / Procedures Referred By Contac t Referred To Contact Pain Management / PAIN MANAGEMENT Diagnoses Examination wants to discuss options since Insurance denied RFA Procedures OFFICE/OUTPATIENT ESTABLISHED MOD MDM 30-39 MIN EST PATIENT Self Adelina Marinelli, POULTRY PATHOLOGIST.MAINTAINER OPERATOR [address] [place] [address] Referral ID Status Reason Start Date Expiration Date V isits Requested Visits Authorized [id number] Closed Patient Cleared - Admin/Chairm an/Director advise to proceed 11/08/2022 02/06/2023 1 1 Reason Onset Date Comments Refill Request 11/15/2022 Reason Onset Date Comments Refill Request 11/23/2022 Reason Comments ER F/U Reason Comments Patient Question [place] appointment on 12/05/22 Reason Comments Acute Visit [...] Referred By Petra meke Referred To Contact ADULT NEUROLOGY Diagnoses Chronic migraine without aura, intractable, without status migrainosus G43.719 Intractable chronic migraine without aura and without status migrainosus Procedures BOTULINUM TOXIN A PER 1 UNIT CHEMODERVATE FACIAL/TRIGEM/CERV MUSC MIGRAINE New referral botox 200 units every 90 days [id number] Karen Bansal, POULTRY PATHOLOGIST.MAINTAINER OPERATOR [address] [place] [address] Neur Adult Main [address] [place] [address] Referral ID Status Reason Start Date Expiration Date V isits Requested Visits Authorized [id number] Authorized 08/15/2022 01/30/2023 2 2 Reason Comments Follow Up Pain (Shoulder Pain) Left Reason Comments Orders Reason Onset Date Comments Refill Request 02/11/2023 Reason Onset Date Comments Refill Request 02/22/2023 Reason Comments Medication Request Reason Comments Follow Up Workers comp Reason Comments Established Patient Reason Comments Medication change requested Reason Comments Yearly Exam Specialty Diagnoses / Procedures Referred By Petra t Referred To Contact CUSTOMER CONTACT SALES ASSOCIATE Diagnoses annual Procedures EST I ANNUAL PATIENT Self Galina Camacho MD [facility] [place] [address] Referral ID Status Reason Start Date Expiration Date V isits Requested Visits Authorized [id number] Closed Patient Cleared - INN Insurance Found [...] Patient due on 04/22/23 Fatuma Beckford PA-C [address] [place] [address] [place] [address] Neur Adult Main [address] [place] [address] Referral ID Status Reason Start Date Expiration Date V isits Requested Visits Authorized [id number] Authorized 04/02/2023 04/02/2024 4 4 Reason Comments Pt requesting Boot Reason Comments Follow Up Reason Comments Follow Up MRI results. Reason Onset Date Comments Refill Request 06/08/2023 Reason Comments New Bone spurs Pain Bone spurs Reason Onset Date Comments Refill Request 07/05/2023 Reason Comments Forms [facility] preventative car e Reason Onset Date [...] Patient due on 04/22/23 Fatuma Beckford PA-C [address] [place] [address] [place] [address] Neur Adult Main [address] [place] [id number] Referral ID Status Reason Start Date Expiration Date Visits Re quested Visits Authorized [id number] Closed 04/02/2023 04/02/2024 4 4 Reason Comments [...] FACIAL/TRIGEM/CERV MUSC MIGRAINE Fatuma Beckford PA-C [address] [place] [address] Lindsey [place] [address] [place] [address] Referral ID Status Reason Start Date Expiration Date V isits Requested Visits Authorized [id number] Authorized 07/01/2024 11/03/2024 99 99 Reason Onset [...] Comments Refill Request 06/16/2025 Reason Comments Results Reason Onset Date Comments Refill Request 07/04/2025 Reason Onset Date Comments Transition Of Care 07/09/2025 [facility] Discharge 07/07/25 Reason Comments Hospital F/U [facility] DX Sepsis, UTI D /C 07/07 Care Teams (unrecognized sec tion and content) Yarn Examiner Relationship Specialty Start Date End Date Ivette Grimes MD [address] [facility] [place] [address] PCP - General Family Practice 11/21/[facility] [address] [facility] [place] [address] Pharmacist Pharmacy 05/19/20 Yarn Examiner Relationship Specialty Start Date End Date Ivette Grimes MD [address] [facility] [place] [address] PCP - General Family Practice 11/21/13 [facility] [address] [facility] [place] [address] Pharmacist Pharmacy 05/19/20 Yarn Examiner Relationship Specialty Start Date End Date Ivette Grimes MD [address] [facility] [place] [address] PCP - General Family Practice 11/21/13 [facility] [address] [facility] [place] [address] Pharmacist Pharmacy 05/19/20 Yarn Examiner Relationship Specialty Start Date End Date Ivette Grimes MD [address] [facility] [place] [address] PCP - General Family Practice 11/21/13 [facility] [address] [facility] [place] [address] Pharmacist Pharmacy 05/19/20 Yarn Examiner Relationship Specialty Start Date End Date Ivette Grimes MD [address] [facility] [place] [address] PCP - General Family Practice 11/21/13 [facility] [address] [facility] [place] [address] Pharmacist Pharmacy 05/19/20 Yarn Examiner Relationship Specialty Start Date End Date Ivette Grimes MD [address] [place] [address] PCP - General Family Practice 11/21/13 [facility] [address] [facility] [place] [address] Pharmacist Pharmacy 05/19/20 Yarn Examiner Relationship Specialty Start Date End Date Ivette Grimes MD [address] [facility] [place] [address] PCP - General Family Practice 11/21/13 [facility] [address] [facility] [place] [address] Pharmacist Pharmacy 05/19/20 Yarn Examiner Relationship Specialty Start Date End Date Ivette Grimes MD [address] [facility] [place] [address] PCP - General Family Practice 11/21/13 [facility] [address] [facility] [place] [address] Pharmacist Pharmacy 05/19/20 Yarn Examiner Relationship Specialty Start Date End Date Ivette Grimes MD [address] [facility] [place] [address] PCP - General Family Practice 11/21/13 Jagdish Carballo, [facility] [address] [facility] [place] [address] Pharmacist Pharmacy 05/19/20 Yarn Examiner Relationship Specialty Start Date End Date Ivette Grimes MD [address] [facility] [place] [address] PCP - General Family Practice 11/21/13 Jagdish Carballo, [facility] [address] [facility] [place] [address] Pharmacist Pharmacy 05/19/20 Yarn Examiner Relationship Specialty Start Date End Date Ivette Grimes MD [address] [facility] [place] [address] PCP - General Family Practice 11/21/13 Jagdish Carballo, [facility] [address] [place] [address] Pharmacist Pharmacy 05/19/20 Yarn Examiner Relationship Specialty Start Date End Date Ivette Grimes MD [address] [facility] [place] [address] PCP - General Family Practice 11/21/13 Jagdish Carballo, [facility] [address] [facility] [place] [address] Pharmacist Pharmacy 05/19/20 Yarn Examiner Relationship Specialty Start Date End Date Ivette Grimes MD [address] [facility] [place] [address] PCP - General Family Practice 11/21/13 Jagdish Carballo, [facility] [address] [facility] [place] [address] Pharmacist Pharmacy 05/19/20 Yarn Examiner Relationship Specialty Start Date End Date Ivette Grimes MD [address] [facility] [place] [address] PCP - General Family Practice 11/21/13 Jagdish Carballo, [facility] [address] [facility] [place] [place] [address] Pharmacist Pharmacy 05/19/20 Yarn Examiner Relationship Specialty Start Date End Date Ivette Grimes MD [address] [facility] [place] [address] PCP - General Family Practice 11/21/13 Jagdish Carballo, [facility] [address] [facility] [place] [address] Pharmacist Pharmacy 05/19/20 Yarn Examiner Relationship Specialty Start Date End Date Ivette Grimes MD [address] [facility] [place] [address] PCP - General Family Practice 11/21/13 Jagdish Carballo, [facility] [address] [facility] [place] [address] Pharmacist Pharmacy 05/19/20 Yarn Examiner Relationship Specialty Start Date End Date Ivette Grimes MD [address] [facility] [place] [address] PCP - General Family Practice 11/21/13 [facility] [address] [facility] [place] [address] Pharmacist Pharmacy 05/19/20 Yarn Examiner Relationship Specialty Start Date End Date Ivette Grimes MD [address] [facility] [place] [address] PCP - General Family Practice 11/21/13 [facility] [address] [facility] [place] [address] Pharmacist Pharmacy 05/19/20 Yarn Examiner Relationship Specialty Start Date End Date Ivette Grimes MD [address] [facility] [place] [address] PCP - General Family Practice 11/21/13 [facility] [address] [facility] [place] [address] Pharmacist Pharmacy 05/19/20 Yarn Examiner Relationship Specialty Start Date End Date Ivette Grimes MD [address] [facility] [place] [address] PCP - General Family Medicine 11/21/13 Jagdish Carballo, [facility] [address] [facility] [place] [address] Pharmacist Pharmacy 05/19/20 Yarn Examiner Relationship Specialty Start Date End Date Ivette Grimes MD [address] [facility] [place] [address] PCP - General Family Medicine 11/21/13 [facility] [address] [facility] [place] [address] Pharmacist Pharmacy 05/19/20 Yarn Examiner Relationship Specialty Start Date End Date Ivette Grimes MD [address] [facility] [place] [address] PCP - General Family Medicine 11/21/13 [facility] [address] [facility] [place] [address] Pharmacist Pharmacy 05/19/20 Yarn Examiner Relationship Specialty Start Date End Date Ivette Grimes MD [address] [facility] [place] [address] PCP - General Family Medicine 11/21/13 [facility] [address] [facility] [place] [address] Pharmacist Pharmacy 05/19/20 Yarn Examiner Relationship Specialty Start Date End Date Ivette Grimes MD [address] [facility] [place] [address] PCP - General Family Medicine 11/21/13 [facility] [address] [facility] [place] [address] Pharmacist Pharmacy 05/19/20 Yarn Examiner Relationship Specialty Start Date End Date Ivette Grimes MD [address] [facility] [place] [address] PCP - General Family Medicine 11/21/13 [facility] [address] [facility] [place] [address] Pharmacist Pharmacy 05/19/20 Yarn Examiner Relationship Specialty Start Date End Date Ivette Grimes MD [address] [facility] [place] [address] PCP - General Family Medicine 11/21/13 Jagdish Carballo, [facility] [address] [facility] [place] [address] Pharmacist Pharmacy 05/19/20 Yarn Examiner Relationship Specialty Start Date End Date Ivette Grimes MD [address] [facility] [place] [address] PCP - General Family Medicine 11/21/13 Jagdish Carballo, [facility] [address] [facility] [place] [address] Pharmacist Pharmacy 05/19/20 Yarn Examiner Relationship Specialty Start Date End Date Ivette Grimes MD [address] [facility] [place] [address] PCP - General Family Medicine 11/21/13 Jagdish Carballo, [facility] [address] [facility] [place] [address] Pharmacist Pharmacy 05/19/20 Yarn Examiner Relationship Specialty Start Date End Date Ivette Grimes MD [address] [facility] [place] [address] PCP - General Family Medicine 11/21/13 Jagdish Carballo, [facility] [address] [facility] [place] [address] Pharmacist Pharmacy 05/19/20 Yarn Examiner Relationship Specialty Start Date End Date Ivette Grimes MD [address] [facility] [place] [address] PCP - General Family Medicine 11/21/13 Jagdish Carballo, [facility] [address] [place] [address] Pharmacist Pharmacy 05/19/20 Yarn Examiner Relationship Specialty Start Date End Date Ivette Grimes MD [address] [facility] [place] [address] PCP - General Family Medicine 11/21/13 [facility] [address] [facility] [place] [address] Pharmacist Pharmacy 05/19/20 Yarn Examiner Relationship Specialty Start Date End Date Ivette Grimes MD [address] [facility] [place] [address] PCP - General Family Medicine 11/21/13 [facility] [address] [facility] [place] [address] Pharmacist Pharmacy 05/19/20 Yarn Examiner Relationship Specialty Start Date End Date Ivette Grimes MD [address] [facility] [place] [address] PCP - General Family Medicine 11/21/13 [facility] [address] [facility] [place] [address] Pharmacist Pharmacy 05/19/20 Yarn Examiner Relationship Specialty Start Date End Date Ivette Grimes MD [address] [facility] [place] [address] PCP - General Family Medicine 11/21/13 Jagdish Carballo, [facility] [address] [facility] [place] [address] Pharmacist Pharmacy 05/19/20 Yarn Examiner Relationship Specialty Start Date End Date Ivette Grimes MD [address] [facility] [place] [address] PCP - General Family Medicine 11/21/13 [facility] [address] [facility] [place] [address] Pharmacist Pharmacy 05/19/20 Yarn Examiner Relationship Specialty Start Date End Date Ivette Grimes MD [address] [facility] [place] [address] PCP - General Family Medicine 11/21/13 [facility] [address] [facility] [place] [address] Pharmacist Pharmacy 05/19/20 Jemal Orozco MD [address] [place] [address] Cardiology 10/31/22 Yarn Examiner Relationship Specialty Start Date End Date Ivette Grimes MD [address] [facility] [place] [address] PCP - General Family Medicine 11/21/13 [facility] [address] [facility] [place] [address] Pharmacist Pharmacy 05/19/20 Jemal Orozco MD [address] [place] [address] Cardiology 10/31/22 Yarn Examiner Relationship Specialty Start Date End Date Ivette Grimes MD [address] [facility] [place] [address] PCP - General Family Medicine 11/21/13 [facility] [address] [facility] [place] [address] Pharmacist Pharmacy 05/19/20 Jemal Orozco MD [address] [place] [address] Cardiology 10/31/22 Yarn Examiner Relationship Specialty Start Date End Date Ivette Grimes MD [address] [place] [address] PCP - General Family Medicine 11/21/13 Jagdish Carballo, [facility] [address] [place] [address] Pharmacist Pharmacy 05/19/20 Jemal Orozco MD [address] [place] [id number] Cardiology 10/31/22 Team Status: Active Member Role [...] MD Primary Care Provider Active Dr. Ivette Price MD Attending Provider, Referring P rovider Active [...] Dr. Tod Callejas MD Emergency Provider Active Yarn Examiner Relationship Specialty Start Date End Date Ivette Grimes MD [address] [facility] [place] [address] PCP - General Family Medicine 11/21/13 [facility] [address] [facility] [place] [address] Pharmacist Pharmacy 05/19/20 Jemal Orozco MD [address] [place] [address] Cardiology 10/31/22 Yarn Examiner Relationship Specialty Start Date End Date Ivette Grimes MD [address] [place] [address] PCP - General Family Medicine 11/21/13 [facility] [address] [place] [address] Pharmacist Pharmacy 05/19/20 Jemal Orozco MD [address] [place] [address] Cardiology 10/31/22 Yarn Examiner Relationship Specialty Start Date End Date Ivette Grimes MD [address] [place] [address] PCP - General Family Medicine 11/21/13 [facility] [address] [place] [address] Pharmacist Pharmacy 05/19/20 Jemal Orozco MD [address] [place] [address] Cardiology 10/31/22 Yarn Examiner Relationship Specialty Start Date End Date Ivette Grimes MD [address] [place] [address] PCP - General Family Medicine 11/21/13 Jagdish Carballo, [facility] [address] [facility] [place] [address] Pharmacist Pharmacy 05/19/20 Jemal Orozco MD [address] [place] [address] Cardiology 10/31/22 Yarn Examiner Relationship Specialty Start Date End Date Ivette Grimes MD [address] [place] [address] PCP - General Family Medicine 11/21/13 [facility] [address] [place] [address] Pharmacist Pharmacy 05/19/20 Jemal Orozco MD [address] [place] [address] Cardiology 10/31/22 Yarn Examiner Relationship Specialty Start Date End Date Ivette Grmies MD [address] [place] [address] PCP - General Family Medicine 11/21/13 [facility] [address] [place] [address] Pharmacist Pharmacy 05/19/20 Jemal Orozco MD [address] [place] [address] Cardiology 10/31/22 Yarn Examiner Relationship Specialty Start Date End Date Ivette Grimes MD [address] [place] [address] PCP - General Family Medicine 11/21/13 [facility] [address] [place] [address] Pharmacist Pharmacy 05/19/20 Jemal Orozco MD [address] [place], [place] [id number] Cardiology 10/31/22 Yarn Examiner Relationship Specialty Start Date End Date Ivette Grimes MD [address] [facility] [place] [address] PCP - General Family Medicine 11/21/13 [facility] [address] [facility] [place] [address] Pharmacist Pharmacy 05/19/20 Jemal Orozco MD [address] [place] [address] Cardiology 10/31/22 Yarn Examiner Relationship Specialty Start Date End Date Ivette Grimes MD [address] [place] [address] PCP - General Family Medicine 11/21/13 [facility] [address] [facility] [place] [address] Pharmacist Pharmacy 05/19/20 Jemal Orozco MD [address] [place] [address] Cardiology 10/31/22 Yarn Examiner Relationship Specialty Start Date End Date Ivette Grimes MD [address] [place] [address] PCP - General Family Medicine 11/21/13 [facility] [address] [facility] [place] [address] Pharmacist Pharmacy 05/19/20 Jemal Orozco MD [address] [place] [address] Cardiology 10/31/22 Yarn Examiner Relationship Specialty Start Date End Date Ivette Grimes MD [address] [place] [address] PCP - General Family Medicine 11/21/13 [facility] [address] [facility] [place] [address] Pharmacist Pharmacy 05/19/20 Jemal Orozco MD [address] [place] [address] Cardiology 10/31/22 Team Status: Inactive Member Role Status Dates Dr. Ivette Grimes MD Primary Care Provider, Referring Provider Active Dr. Vin Montes MD Attending Provider Active Team Status: Inactive Member Role Status Dates Dr. Ivette Grimes MD Primary Care Provider, Referring Provider Active Jesenia Mercado SYSTEMS INTEGRATION ENGINEER, SYSTEMS INTEGRATION ENGINEER-C Attending Provider Active Team Status: Inactive Member [...] Pearl MD Attending Provider, Emergency Provider Active Yarn Examiner Relationship Specialty Start Date End Date Ivette Grimes MD [address] [place] [address] PCP - General Family Medicine 11/21/13 [facility] [address] [place] [address] Pharmacist Pharmacy 05/19/20 Jemal Orozco MD [address] [place] [address] Cardiology 10/31/22 Yarn Examiner Relationship Specialty Start Date End Date Ivette Grimes MD [address] [place], [place] [address]31 PCP - General Family Medicine 11/21/13 [facility] [address] [place] [address] Pharmacist Pharmacy 05/19/20 Jemal Orozco MD [address] [place] [address] Cardiology 10/31/22 Yarn Examiner Relationship Specialty Start Date End Date Ivette Grimes MD [address] [place] [address] PCP - General Family Medicine 11/21/13 [facility] [address] [place] [address] Pharmacist Pharmacy 05/19/20 Jemal Orozco MD [address] [place] [address] Cardiology 10/31/22 Yarn Examiner Relationship Specialty Start Date End Date Ivette Grimes MD [address] [place] [address] PCP - General Family Medicine 11/21/13 [facility] [address] [place] [address] Pharmacist Pharmacy 05/19/20 Jemal Orozco MD [address] [place] [address] Cardiology 10/31/22 Team Status: Active Member Role Status Dates Dr. Ivette Grimes MD Primary Care Provider Active Adelina Marinelli SYSTEMS INTEGRATION ENGINEER, SYSTEMS INTEGRATION ENGINEER-C Attending Provider, Willian alvarez Provider Active Yarn Examiner Relationship Specialty Start Date End Date Ivette Grimes MD [address] [place] [address] PCP - General Family Medicine 11/21/13 Jagdish Carballo, [facility] [address] [facility] [place] [address] Pharmacist Pharmacy 05/19/20 Jemal Orozco MD [address] [place] [address] Cardiology 10/31/22 Yarn Examiner Relationship Specialty Start Date End Date Ivette Grimes MD [address] [facility] [place] [address] PCP - General Family Medicine 11/21/13 [facility] [address] [facility] [place] [address] Pharmacist Pharmacy 05/19/20 Jemal Orozco MD [address] [place] [address] Cardiology 10/31/22 Yarn Examiner Relationship Specialty Start Date End Date Ivette Grimes MD [address] [facility] [place] [address] PCP - General Family Medicine 11/21/13 Jagdish Carballo, [facility] [address] [facility] [place] [address] Pharmacist Pharmacy 05/19/20 Jemal Orozco MD [address] [place] [address] Cardiology 10/31/22 Yarn Examiner Relationship Specialty Start Date End Date Ivette Grimes MD [address] [facility] [place] [address] PCP - General Family Medicine 11/21/13 Jagdish Carballo, [facility] [address] [facility] [place] [address] Pharmacist Pharmacy 05/19/20 Jemal Orozco MD [address] [place] [address] Cardiology 10/31/22 Yarn Examiner Relationship Specialty Start Date End Date Ivette Grimes MD [address] [place] [address] PCP - General Family Medicine 11/21/13 [facility] [address] [place] [address] Pharmacist Pharmacy 05/19/20 Jemal Orozco MD [address] [place] [address] Cardiology 10/31/22 Yarn Examiner Relationship Specialty Start Date End Date Ivette Grimes MD [address] [place] [address] PCP - General Family Medicine 11/21/13 [facility] [address] [place] [address] Pharmacist Pharmacy 05/19/20 Jemal Orozco MD [address] [place], [place] [id number] Cardiology 10/31/22 Team Status: Inactive Member Role Status Dates Dr. Ivette Grimes MD Primary Care Provider Active TETO MARY Attending Provider, Referring Pro vider Active Team Status: Inactive Member Role Status Dates Dr. Ivette Grimes MD Primary Care Provider Active Dr. Sam Pearl MD Emergency Provider Active Yarn Examiner Relationship Specialty Start Date End Date Ivette Grimes MD [address] [place] [address] PCP - General Family Medicine 11/21/13 [facility] [address] [place] [address] Pharmacist Pharmacy 05/19/20 Jemal Orozco MD [address] [place], [place] [id number] Cardiology 10/31/22 Yarn Examiner Relationship Specialty Start Date End Date Ivette Grimes MD [address] [place] [address] PCP - General Family Medicine 11/21/13 [facility] [address] [place] [address] Pharmacist Pharmacy 05/19/20 Jemal Orozco MD [address] [place], [place] 0600395 Cardiology 10/31/22 Yarn Examiner Relationship Specialty Start Date End Date Ivette Grimes MD [address] [place] [address] PCP - General Family Medicine 11/21/13 [facility] [address] [place] [address] Pharmacist Pharmacy 05/19/20 Jemal Orozco MD [address] [place] [address] Cardiology 10/31/22 Yarn Examiner Relationship Specialty Start Date End Date Ivette Grimes MD [address] [place] [address] PCP - General Family Medicine 11/21/13 [facility] [address] [place] [address] Pharmacist Pharmacy 05/19/20 Jemal Orozco MD [address] [place], [place] [address] Cardiology 10/31/22 Yarn Examiner Relationship Specialty Start Date End Date Ivette Grimes MD [address] [facility] [place] [address] PCP - General Family Medicine 11/21/13 Jagdish Carballo, [facility] [address] [facility] [place] [address] Pharmacist Pharmacy 05/19/20 Jemal Orozco MD [address] [place], [place] [id number] Cardiology 10/31/22 Yarn Examiner Relationship Specialty Start Date End Date Ivette Grimes MD [address] [facility] [place] [address] PCP - General Family Medicine 11/21/13 Jagdish Carballo, [facility] [address] [facility] [place] [address] Pharmacist Pharmacy 05/19/20 Jemal Orozco MD [address] [place] [address] Cardiology 10/31/22 Yarn Examiner Relationship Specialty Start Date End Date Ivette Grimes MD [address] [facility] [place] [address] PCP - General Family Medicine 11/21/13 Jagdish Carballo, [facility] [address] [facility] [place] [address] Pharmacist Pharmacy 05/19/20 Jemal Orozco MD [address] [place] [address] Cardiology 10/31/22 Team Status: Active Member Role Status Dates Dr. Ivette Grimes MD Family Provider Active Team Status: Inactive Member Role Status Dates Dr. Bibiana Rehman DC Attending Provider Active Team Status: Inactive Member Role Status Dates Dr. Ivette Grimes MD Primary Care Provider Active Adelina Marinelli SYSTEMS INTEGRATION ENGINEER, SYSTEMS INTEGRATION ENGINEER-C Attending Provider, Referrin g Provider Active Team [...] MD Admit Provider, Attending Prov ider Active Yarn Examiner Relationship Specialty Start Date End Date Ivette Grimes MD [address] [place] [address] PCP - General Family Medicine 11/21/13 [facility] [address] [place] [address] Pharmacist Pharmacy 05/19/20 Jemal Orozco MD [address] [place] [address] Cardiology 10/31/22 Yarn Examiner Relationship Specialty Start Date End Date Ivette Grimes MD [address] [place], [place] 572741 PCP - General Family Medicine 11/21/13 [facility] [address] [place] [address] Pharmacist Pharmacy 05/19/20 Jemal Orozco MD [address] [place], [place] [id number] Cardiology 10/31/22 Yarn Examiner Relationship Specialty Start Date End Date Ivette Grimes MD [address] [place] [address] PCP - General Family Medicine 11/21/13 [facility] [address] [place] [address] Pharmacist Pharmacy 05/19/20 Jemal Orozco MD [address] [place] [address] Cardiology 10/31/22 Yarn Examiner Relationship Specialty Start Date End Date Ivette Grimes MD [address] [place] [address] PCP - General Family Medicine 11/21/13 [facility] [address] [place] [address] Pharmacist Pharmacy 05/19/20 Jemal Orozco MD [address] [place], [place] [id number] Cardiology 10/31/22 Team Status: Inactive Member Role [...] MD Admit Provider, Attending Prov ider Active Yarn Examiner Relationship Specialty Start Date End Date Ivette Grimes MD [address] [facility] [place] [address] PCP - General Family Medicine 11/21/13 [facility] [address] [place] [address] Pharmacist Pharmacy 05/19/20 Jemal Orozco MD [address] [place] [address] Cardiology 10/31/22 Yarn Examiner Relationship Specialty Start Date End Date Ivette Grimes MD [address] [place] [address] PCP - General Family Medicine 11/21/13 [facility] [address] [place] [address] Pharmacist Pharmacy 05/19/20 Jemal Orozco MD [address] [place] [address] Cardiology 10/31/22 Yarn Examiner Relationship Specialty Start Date End Date Ivette Grimes MD [address] [place] [address] PCP - General Family Medicine 11/21/13 [facility] [address] [place] [address] Pharmacist Pharmacy 05/19/20 Jemal Orozco MD [address] [place], [place] [id number] Cardiology 10/31/22 Team Status: Inactive Member Role Status Dates Dr. Ivette Grimes MD Primary Care Provider Active Dr. Luan Zepeda DO Emergency Provider Active Yarn Examiner Relationship Specialty Start Date End Date Ivette Grimes MD [address] [place] [address] PCP - General Family Medicine 11/21/13 [facility] [address] [place] [address] Pharmacist Pharmacy 05/19/20 Jemal Orozco MD [address] [place] [address] Cardiology 10/31/22 Yarn Examiner Relationship Specialty Start Date End Date Ivette Grimes MD [address] [place] [address] PCP - General Family Medicine 11/21/13 [facility] [address] [place] [address] Pharmacist Pharmacy 05/19/20 Jemal Orozco MD [address] [place] [address] Cardiology 10/31/22 Yarn Examiner Relationship Specialty Start Date End Date Ivette Grimes MD [address] [place] [address] PCP - General Family Medicine 11/21/13 [facility] [address] [place] [address] Pharmacist Pharmacy 05/19/20 Jemal Orozco MD [address] [place], [place] 8072[address] Cardiology 10/31/22 Team Status: Inactive Member Role Status Dates Dr. Ivette Grimes MD Primary Care Provider Active Dr. Luan Zepeda DO Attending Provider, Roxane go Active Yarn Examiner Relationship Specialty Start Date End Date Ivette Grimes MD [address] [place], [place] [address]61 PCP - General Family Medicine 11/21/13 Jemal Orozco MD [address] [place], [place] [address]85[address] Cardiology 10/31/22 Yarn Examiner Relationship Specialty Start Date End Date Ivette Grimes MD [address] [place], [place] [address] PCP - General Family Medicine 11/21/13 Jemal Orozco MD [address] [place], [place] [address] Cardiology 10/31/22 Yarn Examiner Relationship Specialty Start Date End Date Ivette Grimes MD [address] [place], [place] 615281 PCP - General Family Medicine 11/21/13 Jemal Orozco MD [address] [place], [place] [id number] Cardiology 10/31/22 Yarn Examiner Relationship Specialty Start Date End Date Ivette Grimes MD [address] [place], [place] [address]641 PCP - General Family Medicine 11/21/13 Jemal Orozco MD [address] [place], [place] 7997[address] Cardiology 10/31/22 Yarn Examiner Relationship Specialty Start Date End Date Ivette Grimes MD [address] [place], [place] [address]351 PCP - General Family Medicine 11/21/13 Jemal Orozco MD [address] [place], [place] 394[address] Cardiology 10/31/22 Yarn Examiner Relationship Specialty Start Date End Date Ivette Grimes MD [address] [place], [place] 200461 PCP - General Family Medicine 11/21/13 Jemal Orozco MD [address] [place], [place] [address]594[address] Cardiology 10/31/22 Yarn Examiner Relationship Specialty Start Date End Date Ivette Grimes MD [address] [place], [place] [address]71 PCP - General Family Medicine 11/21/13 Jemal Orozco MD [address] [place] [address] Cardiology 10/31/22 Yarn Examiner Relationship Specialty Start Date End Date Ivette Grimes MD [address] [place], [place] 422861 PCP - General Family Medicine 11/21/13 Jemal Orozco MD [address] [place], [place] [id number] Cardiology 10/31/22 Yarn Examiner Relationship Specialty Start Date End Date Ivette Grimes MD [address] [place], [place] [address] PCP - General Family Medicine 11/21/13 Jemal Orozco MD [address] [place] [address] Cardiology 10/31/22 Yarn Examiner Relationship Specialty Start Date End Date Ivette Grimes MD [address] [place], [place] [address]661 PCP - General Family Medicine 11/21/13 Jemal Orozco MD [address] [place], [place] [address] Cardiology 10/31/22 Yarn Examiner Relationship Specialty Start Date End Date Ivette Grimes MD [address] [place], [place] [address]441 PCP - General Family Medicine 11/21/13 Jemal Orozco MD [address] [place], [place] [id number] Cardiology 10/31/22 Yarn Examiner Relationship Specialty Start Date End Date Ivette Grimes MD [address] [place] [address] PCP - General Family Medicine 11/21/13 Jemal Orozco MD [address] [place], [place] [id number] Cardiology 10/31/22 Yarn Examiner Relationship Specialty Start Date End Date Ivette Grimes MD [address] [place], [place] [address]481 PCP - General Family Medicine 11/21/13 Jemal Orozco MD [address], [place] [id number] Cardiology 10/31/22 Yarn Examiner Relationship Specialty Start Date End Date Ivette Grimes MD [address] [place], [place] [address]441 PCP - General Family Medicine 11/21/13 Jemal Orozco MD [address] [place] [address] Cardiology 10/31/22 Yarn Examiner Relationship Specialty Start Date End Date Ivette Grimes MD [address] [place], [place] [address]31 PCP - General Family Medicine 11/21/13 Jagdish Carballo [facility] [address] [place], [place] [address] Pharmacist Pharmacy 05/19/20 12/25/23 Jemal Orozco MD [address] [place], [place] [id number] Cardiology 10/31/22 Yarn Examiner Relationship Specialty Start Date End Date Ivette Grimes MD [address] [place] [address] PCP - General Family Medicine 11/21/13 Jemal Orozco MD [address] [place], [place] [id number] Cardiology 10/31/22 Yarn Examiner Relationship Specialty Start Date End Date Ivette Grimes MD [address] [place] [address] PCP - General Family Medicine 11/21/13 Jemal Orozco MD [address] [place] [address] Cardiology 10/31/22 Yarn Examiner Relationship Specialty Start Date End Date Ivette Grimes MD [address] [place], [place] [address]371 PCP - General Family Medicine 11/21/13 Jemal Orozco MD [address] [place] [address] Cardiology 10/31/22 Yarn Examiner Relationship Specialty Start Date End Date Ivette Grimes MD [address] [place] [address] PCP - General Family Medicine 11/21/13 Jemal Orozco MD [address] [place] [address] Cardiology 10/31/22 Yarn Examiner Relationship Specialty Start Date End Date Ivette Grimes MD [address] [place], [place] 216001 PCP - General Family Medicine 11/21/13 Jemal Orozco MD [address] [place], [place] [address] Cardiology 10/31/22 Cindy Edouard POULTRY PATHOLOGIST.MAINTAINER OPERATOR [address] [place] [address] [facility]ly [facility] 10/12/24 Lubna De La Garza POULTRY PATHOLOGIST.MAINTAINER OPERATOR [address] [facility] [place] [address] [facility] 10/12/24 Yarn Examiner Relationship Specialty Start Date End Date Ivette Grimes MD [address] [place] [address] PCP - General Family Medicine 11/21/13 Jemal Orozco MD [address] [place], [place] [address] Cardiology 10/31/22 Cindy Edouard, POULTRY PATHOLOGIST.MAINTAINER OPERATOR [address] [place] [address] [facility] 10/12/24 Lubna De La Garza POULTRY PATHOLOGIST.MAINTAINER OPERATOR [address] [place] [address] [facility] 10/12/24 Yarn Examiner Relationship Specialty Start Date End Date Ivette Grimes MD [address] [facility] [place] [address] PCP - General Family Medicine 11/21/13 Jemal Orozco MD [address] [place], [place] [id number] Cardiology 10/31/22 Cindy Edouard, POULTRY PATHOLOGIST.MAINTAINER OPERATOR [address] [place] [address] Travel Sales Consultant [facility] 10/12/24 Lubna De La Garza APRN.MAINTAINER OPERATOR [address] [place] [address] Travel Sales Consultant [facility] 10/12/24 Yarn Examiner Relationship Specialty Start Date End Date Ivette Grimes MD [address] [place] [address] PCP - General Family Medicine 11/21/13 Jemal Orozco MD [address] [place] [address] Cardiology 10/31/22 Cindy Edouard POULTRY PATHOLOGIST.MAINTAINER OPERATOR [address] [place] [address] Travel Sales Consultant [facility] 10/12/24 Lubna De La Garza POULTRY PATHOLOGIST.MAINTAINER OPERATOR [address] [place] [address] [facility] 10/12/24 Yarn Examiner Relationship Specialty Start Date End Date Ivette Grimes MD [address] [place] [address] PCP - General Family Medicine 11/21/13 Jemal Orozco MD [address] [place] [address] Cardiology 10/31/22 Cindy Edouard APRN.MAINTAINER OPERATOR [address] [place] [address] Travel Sales Consultant Family Medicine 10/12/24 Lubna De La Garza APRN.MAINTAINER OPERATOR [address] [facility] [place] [address] [facility] 10/12/24 Yarn Examiner Relationship Specialty Start Date End Date Ivette Grimes MD [address] [facility] [place] [address] PCP - General Family Medicine 11/21/13 Jemal Orozco MD [address] [place] [address] Cardiology 10/31/22 Cindy Edouard APRN.MAINTAINER OPERATOR [address] [place] [address] [facility] 10/12/24 Lubna De La Garza POULTRY PATHOLOGIST.MAINTAINER OPERATOR [address] [facility] [place] [address] [facility] 10/12/24 Yarn Examiner Relationship Specialty Start Date End Date Ivette Grimes MD [address] [place] [address] PCP - General Family Medicine 11/21/13 Jemal Orozco MD [address] [place], [place] [address] Cardiology 10/31/22 Cidny Edouard APRN.MAINTAINER OPERATOR [address] [place] [address] [facility] 10/12/24 Lubna De La Garza APRN.MAINTAINER OPERATOR [address] [place] [address] Travel Sales Consultant Family Medicine 10/12/24 Yarn Examiner Relationship Specialty Start Date End Date Ivette Grimes MD [address] [place] [address] PCP - General Family Medicine 11/21/13 Jemal Orozco MD [address] [place] [address] Cardiology 10/31/22 Cindy Edouard POULTRY PATHOLOGIST.MAINTAINER OPERATOR [address] [place] [address] Travel Sales Consultant Family Medicine 10/12/24 Lubna De La Garza POULTRY PATHOLOGIST.MAINTAINER OPERATOR [address] [place] [address] Travel Sales Consultant Family Medicine 10/12/24 Yarn Examiner Relationship Specialty Start Date End Date Ivette Grimes MD [address] [place] [address] PCP - General Family Medicine 11/21/13 Jemal Orozco MD [address] [place] [address] Cardiology 10/31/22 Cindy Edouard POULTRY PATHOLOGIST.MAINTAINER OPERATOR [address] [place] [address] Travel Sales Consultant Family Medicine 10/12/24 Lubna De La Garza POULTRY PATHOLOGIST.MAINTAINER OPERATOR [address] [place] [address] Travel Sales Consultant Family Medicine 10/12/24 Yarn Examiner Relationship Specialty Start Date End Date Ivette Grimes MD [address] [facility] [place] [address] PCP - General Family Medicine 11/21/13 Jemal Orozco MD [address] [place], [place] 7003[address] Cardiology 10/31/22 Cindy Edouard POULTRY PATHOLOGIST.MAINTAINER OPERATOR [address] [place] [address] Travel Sales Consultant Family Medicine 10/12/24 Lubna De La Garza POULTRY PATHOLOGIST.MAINTAINER OPERATOR [address] [facility] [place] [address] Travel Sales Consultant [facility] Medicine 10/12/24 Yarn Examiner Relationship Specialty Start Date End Date Ivette Grimes MD [address] [place] [address] PCP - General Family Medicine 11/21/13 Jemal Oorzco MD [address] [place] [address] Cardiology 10/31/22 Cindy Edouard POULTRY PATHOLOGIST.MAINTAINER OPERATOR [address] [place] [address] Travel Sales Consultant Family Medicine 10/12/24 Lubna De La Garza POULTRY PATHOLOGIST.MAINTAINER OPERATOR [address] [facility] [place] [address] Travel Sales Consultant Family Medicine 10/12/24 Yarn Examiner Relationship Specialty Start Date End Date Ivette Grimes MD [address] [place], [place] [address] PCP - General Family Medicine 11/21/13 Jemal Orozco MD [address] [place] [address] Cardiology 10/31/22 Cindy Edouard APRN.MAINTAINER OPERATOR [address] [place], [place] [address] Travel Sales Consultant [facility] 10/12/24 Lubna De La Garza POULTRY PATHOLOGIST.MAINTAINER OPERATOR [address] [place] [address] [facility] 10/12/24 Team Status: Active Member Role Status [...] January 28, 2025 End: January 28, 2025 Yarn Examiner Relationship Specialty Start Date End Date Ivette Grimes MD [address] [place], [place] [address]21 PCP - General Family Medicine 11/21/13 Jemal Orozco MD [address] [place] [address] Cardiology 10/31/22 Cindy Edouard, POULTRY PATHOLOGIST.MAINTAINER OPERATOR [address] [place] [address] Travel Sales Consultant [facility] 10/12/24 Lubna De La Garza, POULTRY PATHOLOGIST.MAINTAINER OPERATOR [address] [place] [address] Travel Sales Consultant [facility] 10/12/24 Yarn Examiner Relationship Specialty Start Date End Date Ivette Grimes MD [address] [place], [place] [id number] PCP - General Family Medicine 11/21/13 Jemal Orozco MD [address] [place] [address] Cardiology 10/31/22 Cindy Edouard, POULTRY PATHOLOGIST.MAINTAINER OPERATOR [address] [facility] [place] [address] [facility] 10/12/24 Lubna De La Garza APRN.MAINTAINER OPERATOR [address] [facility] [place] [address] [facility] 10/12/24 Team Status: Inactive Member Role Status [...] March 22, 2025 End: March 22, 2025 Yarn Examiner Relationship Specialty Start Date End Date Ivette Grimes MD [address] [place], [place] [address]01 PCP - General Family Medicine 11/21/13 Jemal Orozco MD [address] [place] [address] Cardiology 10/31/22 Cindy Edouard, POULTRY PATHOLOGIST.MAINTAINER OPERATOR [address] [place], [place] [address] Travel Sales Consultant Family Medicine 10/12/24 Lubna De La Garza POULTRY PATHOLOGIST.MAINTAINER OPERATOR [address] [place] [address] Travel Sales Consultant [facility] 10/12/24 Team Status: Inactive Member Role Status Dates Dr. Ivette Grimes MD Primary Care Provider Active Start: April 05, 2025 End: April 05, 2025 Dr. Ivette Grimes MD Referring Provider Active Start: April 05, 2025 End: April 05, 2025 Dr. Bibiana Rehman DC Attending Provider Active S tart: April 05, 2025 End: April 05, 2025 Yarn Examiner Relationship Specialty Start Date End Date Ivette Grimes MD [address] [place], [place] [address] PCP - General Family Medicine 11/21/13 Jemal Orozco MD [address] [place] [address] Cardiology 10/31/22 Cindy Edouard APRN.MAINTAINER OPERATOR [address] [place] [address] Travel Sales Consultant [facility] 10/12/24 Lubna De La Garza APRN.MAINTAINER OPERATOR [address] [place] [address] Travel Sales Consultant [facility] 10/12/24 Team Status: Active Member Role Status [...] June 01, 2025 End: June 01, 2025 Yarn Examiner Relationship Specialty Start Date End Date Ivette Grimes MD [address] [place] [address] PCP - General Family Medicine 11/21/13 Jemal Orozco MD [address] [place], [place] [address] Cardiology 10/31/22 Cindy Edouard, POULTRY PATHOLOGIST.MAINTAINER OPERATOR [address] [place] [address] Travel Sales Consultant [facility] 10/12/24 Lubna De La Garza APRN.[facility] [address] [place] [address] [facility] 10/12/24 Team Status: Inactive Member Role/Relationship Status [...] Inactive Member Role/Relationship Status Dates Dr. Ivette Grmies MD Primary Care Provider Active Start: June [...] June 09, 2025 End: June 09, 2025 Yarn Examiner Relationship Specialty Start Date End Date Ivette Grimes MD [address] [place], [place] [address] PCP - General Family Medicine 11/21/13 Jemal Orozco MD [address] [place], [place] [address] Cardiology 10/31/22 Cindy Edouard APRN.MAINTAINER OPERATOR [address] [place], [place] [id number] Travel Sales Consultant Family Medicine 10/12/24 Lubna De La Garza POULTRY PATHOLOGIST.MAINTAINER OPERATOR [address] [place], [place] [id number] Travel Sales Consultant Family Medicine 10/12/24 Team Status: Inactive Member Role/Relationship Status [...] June 25, 2025 End: June 25, 2025 Team Status: Active Member Role/Relationship Status Dates Dr. Ivette Grimes MD Primary Care Provider Active Start: July 05, 2025 Dr. Abhi Pina MD Emergency Provider Active Sta rt: July 05, 2025 Dr. Shana Mendoza MD Attending Provider Active Start: July 05, 2025 Team Status: Active Member Role/Relationship Status Dates Dr. Ivette Grimes MD Primary Care Provider Active Start: July 05, 2025 Dr. Abhi Pina MD Emergency Provider Active Sta rt: July 05, 2025 Dr. Shana Mendoza MD Admit Provider Active St art: July 05, 2025 Dr. Shana Mendoza MD Attending Provider Active Start: July 05, 2025 Dr. Brad Trinidad MD Other Provider Active Start: July 05, 2025 Dr. Killian Osorio MD Other Provider Active Start: July 05, 2025 Dr. Primo Ceron MD Other Provider Active Star t: July 05, 2025 Dr. Derik Stack DO Other Provider Active Start : July 05, 2025 Dr. Brittany Blackwell MD Other Provider Active Sta rt: July 05, 2025 Dr. Shawn Garcia MD Other Provider Active St art: July 05, 2025 Dr. Monroe Wolfe MD Other Provider Active S tart: July 05, 2025 Dr. Sabrina Abdul MD Other Provider Active Start: July 05, 2025 Dr. Bill Strauss MD Other Provider Active Start : July 05, 2025 Dr. Baldemar Sosa MD Other Provider Active Start: July 05, 2025 Dr. Slava Reina MD Other Provider Active Start : July 05, 2025 Dr. Janna Schulte MD Other Provider Active Star t: July 05, 2025 Dr. Karen Shaver MD Other Provider Active Sta rt: July 05, 2025 Dr. Susana Ko MD Other Provider Active Sta rt: July 05, 2025 Dr. Mata Luque MD Other Provider Active Star t: July 05, 2025 Dr. Calos Steward MD Other Provider Active St art: July 05, 2025 Dr. James Mota MD Other Provider Active Star t: July 05, 2025 Dr. Alfonzo Vicente DO Other Provider Active St art: July 05, 2025 Dr. Dave Chino MD Other Provider Active Start: July 05, 2025 Dr. Sabine Reed MD Other Provider Active St art: July 05, 2025 Dr. Vincent Drew DO Other Provider Active Start: July 05, 2025 Dr. Quinton Glez MD Other Provider Active Star t: July 05, 2025 Dr. Chicho Chou MD Other Provider Active Start: July 05, 2025 Dr. Ivette Jackson MD Other Provider Active Sta rt: July 05, 2025 Yarn Examiner Relationship Specialty Start Date End Date Ivette Grimes MD [address] [place] [address] PCP - General Family Medicine 11/21/13 Jemal Orozco MD [address] [place] [address] Cardiology 10/31/22 Cindy Edouard APRN.MAINTAINER OPERATOR [address] [place] [address] [facility] 10/12/24 Lubna De La Garza APRN.MAINTAINER OPERATOR [address] [facility] [place] [address] [facility] 10/12/24 Team Status: Inactive Member Role/Relationship Status Dates Dr. Ivette Grimes MD Primary Care Provider Active Start: July 05, 2025 End: July 07, 2025 Dr. Abhi Pina MD Emergency Provider Active Sta rt: July 05, 2025 End: July 07, 2025 Dr. Shana Mendoza MD Admit Provider Active St art: July 05, 2025 End: July 07, 2025 Dr. Shana Mendoza MD Other Provider Active St art: July 05, 2025 End: July 07, 2025 Dr. Brittany Harrison MD Attending Provider Active Start: July 05, 2025 End: July 07, 2025 Dr. Jose Juan Reinoso MD Other Provider Active Start: July 05, 2025 End: July 07, 2025 Team Status: Active Member Role/Relationship Status Dates Dr. Ivette Grimes MD Primary Care Provider Active Start: July 06, 2025 Dr. Abhi Pina MD Emergency Provider Active Sta rt: July 06, 2025 Dr. Shana Mendoza MD Admit Provider Active St art: July 06, 2025 Dr. Shana Mendoza MD Other Provider Active St art: July 06, 2025 Dr. Brad Trinidad MD Other Provider Active Start: July 06, 2025 Dr. Killian Osorio MD Other Provider Active Start: July 06, 2025 Dr. Primo Ceron MD Other Provider Active Star t: July 06, 2025 Dr. Derik Stack DO Other Provider Active Start : July 06, 2025 Dr. Brittany Blackwell MD Other Provider Active Sta rt: July 06, 2025 Dr. Shawn Garcia MD Other Provider Active St art: July 06, 2025 Dr. Monroe Wolfe MD Other Provider Active S tart: July 06, 2025 Dr. Sabrina Abdul MD Other Provider Active Start: July 06, 2025 Dr. Bill Strauss MD Other Provider Active Start : July 06, 2025 Dr. Baldemar Sosa MD Other Provider Active Start: July 06, 2025 Dr. Slava Reina MD Other Provider Active Start : July 06, 2025 Dr. Janna Schulte MD Other Provider Active Star t: July 06, 2025 Dr. Karen Shaver MD Other Provider Active Sta rt: July 06, 2025 Dr. Susana Ko MD Other Provider Active Sta rt: July 06, 2025 Dr. Mata Luque MD Other Provider Active Star t: July 06, 2025 Dr. Calos Steward MD Other Provider Active St art: July 06, 2025 Dr. James Mota MD Other Provider Active Star t: July 06, 2025 Dr. Alfonzo Vicente DO Other Provider Active St art: July 06, 2025 Dr. Dave Chino MD Other Provider Active Start: July 06, 2025 Dr. Sabine Reed MD Other Provider Active St art: July 06, 2025 Dr. Vincent Drew DO Other Provider Active Start: July 06, 2025 Dr. Quinton Glez MD Other Provider Active Star t: July 06, 2025 Dr. Chicho Chou MD Other Provider Active Start: July 06, 2025 Dr. Ivette Jackson MD Other Provider Active Sta rt: July 06, 2025 Dr. Jose Juan Reinoso MD Attending Provider Active Start: July 06, 2025 Dr. Jose Juan Reinoso MD Other Provider Active Start: July 06, 2025 Team Status: Active Member Role/Relationship Status Dates Dr. Ivette Grimes MD Primary Care Provider Active Start: July 07, 2025 Dr. Abhi Pina MD Emergency Provider Active Sta rt: July 07, 2025 Dr. Shana Mendoza MD Admit Provider Active St art: July 07, 2025 Dr. Shana Mendoza MD Other Provider Active St art: July 07, 2025 Dr. Brittany Harrison MD Attending Provider Active Start: July 07, 2025 Dr. Brittany Harrison MD Other Provider Active Star t: July 07, 2025 Dr. Jose Juan Reinoso MD Other Provider Active Start: July 07, 2025 Team Status: Inactive Member Role/Relationship Status [...] Active Start: June 05, 2025 Team Status: Inactive Member Role/Relationship Status Dates Dr. Ivette Grimes MD Primary Care Provider Active Start: June 09, 2025 End: June 09, 2025 Dr. Ivette Grimes MD Attending Provider Active Start: June 09, 2025 End: June 09, 2025 Dr. Ivette Grimes MD Referring Provider Active Start: June 09, 2025 End: June 09, 2025 Team Status: Active Member [...] June 25, 2025 End: June 25, 2025 Team Status: Active Member Role/Relationship Status Dates Dr. Ivette Grimes MD Primary Care Provider Active Start: July 05, 2025 Dr. Abhi Pina MD Emergency Provider Active Sta rt: July 05, 2025 Dr. Shana Mendoza MD Attending Provider Active Start: July 05, 2025 Team Status: Inactive Member Role/Relationship Status Dates Dr. Ivette Grimes MD Primary Care Provider Active Start: July 05, 2025 End: July 07, 2025 Dr. Abhi Pina MD Emergency Provider Active Sta rt: July 05, 2025 End: July 07, 2025 Dr. Shana Mendoza MD Admit Provider Active St art: July 05, 2025 End: July 07, 2025 Dr. Shana Mendoza MD Other Provider Active St art: July 05, 2025 End: July 07, 2025 Dr. Brittany Harrison MD Attending Provider Active Start: July 05, 2025 End: July 07, 2025 Dr. Jose Juan Reinoso MD Other Provider Active Start: July 05, 2025 End: July 07, 2025 Team Status: Active Member Role/Relationship Status Dates Dr. Ivette Grimes MD Primary Care Provider Active Start: July 06, 2025 Dr. Abhi Pina MD Emergency Provider Active Sta rt: July 06, 2025 Dr. Shana Mendoza MD Admit Provider Active St art: July 06, 2025 Dr. Shana Mendoza MD Other Provider Active St art: July 06, 2025 Dr. Brad Trinidad MD Other Provider Active Start: July 06, 2025 Dr. Killian Osorio MD Other Provider Active Start: July 06, 2025 Dr. Primo Ceron MD Other Provider Active Star t: July 06, 2025 Dr. Derik Stack DO Other Provider Active Start : July 06, 2025 Dr. Brittany Blackwell MD Other Provider Active Sta rt: July 06, 2025 Dr. Shawn Garcia MD Other Provider Active St art: July 06, 2025 Dr. Monroe Wolfe MD Other Provider Active S tart: July 06, 2025 Dr. Sabrina Abdul MD Other Provider Active Start: July 06, 2025 Dr. Bill Strauss MD Other Provider Active Start : July 06, 2025 Dr. Baldemar Sosa MD Other Provider Active Start: July 06, 2025 Dr. Slava Reina MD Other Provider Active Start : July 06, 2025 Dr. Janna Schulte MD Other Provider Active Star t: July 06, 2025 Dr. Karen Shaver MD Other Provider Active Sta rt: July 06, 2025 Dr. Susana Ko MD Other Provider Active Sta rt: July 06, 2025 Dr. Mata Luque MD Other Provider Active Star t: July 06, 2025 Dr. Calos Steward MD Other Provider Active St art: July 06, 2025 Dr. James Mota MD Other Provider Active Star t: July 06, 2025 Dr. Alfonzo Vicente DO Other Provider Active St art: July 06, 2025 Dr. Dave Chino MD Other Provider Active Start: July 06, 2025 Dr. Sabine Reed MD Other Provider Active St art: July 06, 2025 Dr. Vincent Drew DO Other Provider Active Start: July 06, 2025 Dr. Quinton Glez MD Other Provider Active Star t: July 06, 2025 Dr. Chicho Chou MD Other Provider Active Start: July 06, 2025 Dr. Ivette Jackson MD Other Provider Active Sta rt: July 06, 2025 Dr. Jose Juan Reinoso MD Attending Provider Active Start: July 06, 2025 Dr. Jose Juan Reinoso MD Other Provider Active Start: July 06, 2025 Team Status: Active Member Role/Relationship Status Dates Dr. Ivette Grimes MD Primary Care Provider Active Start: July 07, 2025 Dr. Abhi Pina MD Emergency Provider Active Sta rt: July 07, 2025 Dr. Shana Mendoza MD Admit Provider Active St art: July 07, 2025 Dr. Shana Mendoza MD Other Provider Active St art: July 07, 2025 Dr. Brittany Harrison MD Attending Provider Active Start: July 07, 2025 Dr. Brittany Harrison MD Other Provider Active Star t: July 07, 2025 Dr. Jose Juan Reinoso MD Other Provider Active Start: July 07, 2025 Team Status: Inactive Member Role/Relationship Status Dates Dr. Ivette Grimes MD Primary Care Provider Active Start: July 09, 2025 End: July 09, 2025 Dr. Ivette Grimes MD Referring Provider Active Start: July 09, 2025 End: July 09, 2025 Brett Quiroga MD Attending Provider Active St art: July 09, 2025 End: July 09, 2025 Yarn Examiner Relationship Specialty Start Date End Date Ivette Grimes MD [address] [place], [place] [address] PCP - General Family Medicine 11/21/13 Jemal Orozco MD [address] [place] [address] Cardiology 10/31/22 Cindy Edouard, POULTRY PATHOLOGIST.MAINTAINER OPERATOR [address] [place] [address] [facility] 10/12/24 Lubna De La Garza POULTRY PATHOLOGIST.MAINTAINER OPERATOR [address] [place], [place] [address] [facility] 10/12/24 Yarn Examiner Relationship Specialty Start Date End Date Ivette Grimes MD [address] [place], [place] [address] PCP - General Family Medicine 11/21/13 Jemal Orozco MD [address] [place], [place] [id number] Cardiology 10/31/22 Cindy Edouard, POULTRY PATHOLOGIST.MAINTAINER OPERATOR [address] [place], [place] [address] [facility] 10/12/24 Lubna De La Garza, POULTRY PATHOLOGIST.MAINTAINER OPERATOR [address] [place], [place] [address] [facility] 10/12/24 Team Status: Active Member Role/Relationship Status Dates Dr. Ivette Grimes MD Primary care physician Active Team Status: Inactive Member Role/Relationship Status Dates Dr. Ivette Grimes MD Primary care physician Active Start: April 17, 2025 End: April 17, 2025 Brett Quiroga MD Attending physician Active S tart: April 17, 2025 End: April 17, 2025 Brett Quiroga MD Referring Provider Active St art: April 17, 2025 End: April 17, 2025 Team Status: Inactive Member Role/Relationship Status Dates Dr. Ivette Grimes MD Primary care physician Active Start: April 21, 2025 End: April 21, 2025 Dr. Ivette Grimes MD Referring Provider Active Start: April 21, 2025 End: April 21, 2025 Dr. Bibiana Rehman DC Attending physician Active Start: April 21, 2025 End: April 21, 2025 Team Status: Inactive Member Role/Relationship Status Dates Dr. Ivette Grimes MD Primary care physician Active Start: May 06, 2025 End: May 06, 2025 Dr. Ivette Grimes MD Referring Provider Active Start: May 06, 2025 End: May 06, 2025 Brett Quiroga MD Attending physician Active S tart: May 06, 2025 End: May 06, 2025 Team Status: Active Member Role/Relationship Status Dates Dr. Ivette Grimes MD Primary care physician Active Start: May 11, 2025 Dr. Ivette Grimes MD Attending physician Active Start: May 11, 2025 Dr. Ivette Grimes MD Referring Provider Active Start: May 11, 2025 Team Status: Inactive Member Role/Relationship Status Dates Dr. Ivette Grimes MD Primary care physician Active Start: June 01, 2025 End: June 01, 2025 Dr. Ivette Grimes MD Referring Provider Active Start: June 01, 2025 End: June 01, 2025 Dr. Bibiana Rehman DC Attending physician Active Start: June 01, 2025 End: June 01, 2025 Team Status: Active Member Role/Relationship Status Dates Dr. Ivette Grimes MD Primary care physician Active Start: June 05, 2025 Health Risk Assessment Attending physician Active Start: June 05, 2025 Health Risk Assessment Referring Provider Active Start: June 05, 2025 Team Status: Inactive Member Role/Relationship Status Dates Dr. Ivette Grimes MD Primary care physician Active Start: June 09, 2025 End: June 09, 2025 Dr. Ivette Grimes MD Attending physician Active Start: June 09, 2025 End: June 09, 2025 Dr. Ivette Grimes MD Referring Provider Active Start: June 09, 2025 End: June 09, 2025 Team Status: Active Member Role/Relationship Status Dates Dr. Ivette Grimes MD Primary care physician Active Start: June 10, 2025 Dr. Vin Montes MD Attending physician Active Start: June 10, 2025 Brett Quiroga MD Referring Provider Active St art: June 10, 2025 Team Status: Inactive Member Role/Relationship Status Dates Dr. Ivette Grimes MD Primary care physician Active Start: June 17, 2025 End: June 17, 2025 Dr. Ivette Grimes MD Referring Provider Active Start: June 17, 2025 End: June 17, 2025 Dr. Bibiana Rehman DC Attending physician Active Start: June 17, 2025 End: June 17, 2025 Team Status: Inactive Member Role/Relationship Status Dates Dr. Ivette Grimes MD Primary care physician Active Start: June 23, 2025 End: June 23, 2025 Brett Quiroga MD Attending physician Active S tart: June 23, 2025 End: June 23, 2025 Brett Quiroga MD Referring Provider Active St art: June 23, 2025 End: June 23, 2025 Team Status: Active Member Role/Relationship Status Dates Dr. Ivette Grimes MD Primary care physician Active Start: June 23, 2025 Brett Quiroga MD Attending physician Active S tart: June 23, 2025 Brett Quiroga MD Referring Provider Active St art: June 23, 2025 Brett Quiroga MD Nurse Practitioner Active St art: June 23, 2025 Team Status: Inactive Member Role/Relationship Status Dates Dr. Ivette Grimes MD Primary care physician Active Start: June 25, 2025 End: June 25, 2025 Dr. Ivette Grimes MD Referring Provider Active Start: June 25, 2025 End: June 25, 2025 Brett Quiroga MD Attending physician Active S tart: June 25, 2025 End: June 25, 2025 Team Status: Active Member Role/Relationship Status Dates Dr. Ivette Grimes MD Primary care physician Active Start: July 05, 2025 Dr. Abhi Pina MD Emergency Department Physician Active Start: July 05, 2025 Dr. Shana Mendoza MD Attending physician Active Start: July 05, 2025 Team Status: Inactive Member Role/Relationship Status Dates Dr. Ivette Grimes MD Primary care physician Active Start: July 05, 2025 End: July 07, 2025 Dr. Abhi Pina MD Emergency Department Physician Active Start: July 05, 2025 End: July 07, 2025 Dr. Shana Mendoza MD Admitting physician Active Start: July 05, 2025 End: July 07, 2025 Dr. Shana Mendoza MD Nurse Practitioner Active Start: July 05, 2025 End: July 07, 2025 Dr. Brittany Harrison MD Attending physician Active Start: July 05, 2025 End: July 07, 2025 Dr. Jose Juan Reinoso MD Nurse Practitioner Active Start: July End: July 07, 2025 Team Status: Active Member Role/Relationship Status Dates Dr. Ivette Grimes MD Primary care physician Active Start: July 06, 2025 Dr. Abhi Pina MD Emergency Department Physician Active Start: July 06, 2025 Dr. Shana Mendoza MD Admitting physician Active Start: July 06, 2025 Dr. Shana Mendoza MD Nurse Practitioner Active Start: July 06, 2025 Dr. Brad Trinidad MD Nurse Practitioner Active Start: July 06, 2025 Dr. Killian Osorio MD Nurse Practitioner Active Sta rt: July 06, 2025 Dr. Primo Ceron MD Nurse Practitioner Active Start: July 06, 2025 Dr. Derik Stack , Nurse Practitioner Active S tart: July 06, 2025 Dr. Brittany Blackwell MD Nurse Practitioner Active Start: July 06, 2025 Dr. Shawn Garcia MD Nurse Practitioner Active Start: July 06, 2025 Dr. Monroe Wolfe MD Nurse Practitioner Active Start: July 06, 2025 Dr. Sabrina Abdul MD Nurse Practitioner Active Start: July Dr. Bill Strauss MD Nurse Practitioner Active S tart: July 06, 2025 Dr. Baldemar Sosa MD Nurse Practitioner Active St art: July 06, 2025 Dr. Slava Reina MD Nurse Practitioner Active S tart: July 06, 2025 Dr. Janna Schulte MD Nurse Practitioner Active Start: July 06, 2025 Dr. Karen Shaver MD Nurse Practitioner Active Start: July 06, 2025 Dr. Susana Ko MD Nurse Practitioner Active Start: July 06, 2025 Dr. Mata Luque MD Nurse Practitioner Active Start: July 06, 2025 Dr. Calos Steward MD Nurse Practitioner Active Start: July 06, 2025 Dr. James Mota MD Nurse Practitioner Active Start: July 06, 2025 Dr. Alfonzo Vicente , Nurse Practitioner Active Start: July 06, 2025 Dr. Dave Chino MD Nurse Practitioner Active St art: July 06, 2025 Dr. Sabine Reed MD Nurse Practitioner Active Start: July 06, 2025 Dr. Vincent Drew , Nurse Practitioner Active Start: July 06, 2025 Dr. Quinton Glez MD Nurse Practitioner Active Start: July 06, 2025 Dr. Chicho Chou MD Nurse Practitioner Active Start: July Dr. Ivette Jackson MD Nurse Practitioner Active Start: July 06, 2025 Dr. Jose Juan Reinoso MD Attending physician Active Start: July Dr. Jose Juan Reinoso MD Nurse Practitioner Active Start: July Team Status: Active Member Role/Relationship Status Dates Dr. Ivette Grimes MD Primary care physician Active Start: July 07, 2025 Dr. Abhi Pina MD Emergency Department Physician Active Start: July 07, 2025 Dr. Shana Mendoza MD Admitting physician Active Start: July 07, 2025 Dr. Shana Mendoza MD Nurse Practitioner Active Start: July 07, 2025 Dr. Brittany Harrison MD Attending physician Active Start: July 07, 2025 Dr. Brittany Harrison MD Nurse Practitioner Active Start: July 07, 2025 Dr. Jose Juan Reinoso MD Nurse Practitioner Active Start: July Team Status: Inactive Member Role/Relationship Status Dates Dr. Ivette Grimes MD Primary care physician Active Start: July 09, 2025 End: July 09, 2025 Dr. Ivette Grimes MD Referring Provider Active Start: July 09, 2025 End: July 09, 2025 Brett Quiroga MD Attending physician Active S tart: July 09, 2025 End: July 09, 2025 Team Status: Inactive Member Role/Relationship Status Dates Dr. Ivette Grimes MD Primary care physician Active Start: July 23, 2025 End: July 23, 2025 Dr. Ivette Grimes MD Attending physician Active Start: July 23, 2025 End: July 23, 2025 Dr. Ivette Grimes MD Referring Provider Active Start: July 23, 2025 End: July 23, 2025 Team Status: Inactive Member Role/Relationship Status Dates Dr. Ivette Grimes MD Primary care physician Active Start: August 05, 2025 End: August 05, 2025 Dr. Ivette Grimes MD Referring Provider Active Start: August 05, 2025 End: August 05, 2025 Brett Quiroga MD Attending physician Active S tart: August 05, 2025 End: August 05, 2025 INFORMATION SOURCE (unrecogn ized section and content) DATE CREATED AUTHOR 01/25/2023 [facility] DATE CREATED AUTHOR AUTHOR'S ORGANIZ ATION 09/10/2025 [facility] DATE CREATED AUTHOR AUTHOR'S ORGANIZ ATION 09/15/2025 [facility] Inactive Administered Medications - [...] BE BASED ON THE PRIMARY CLINICAL RECORDS. [employer] provides no warranty or guarantee of the accuracy or completeness of information in this document.
[2025-09-16 08:02] LABS: Internal QC Validated? YES +Cl - CLEAR BKGD; Pregnancy, Urine Negative Negative; Record Kit Lot#,Urine Preg 980607
[2025-09-16] MEDS: Lactated Ringers 1,000 ML 15 ML IV (08:23)
--- NOTE | 2025-09-16 08:30 | PCM.HP.BLA ---
History and Physical Date of Admission: 09/16/25 Date of Service: 08/27/25 MR#: [id number] Acct: [id number] Name: TORI GARCIA Rep #: [id number] : 1980 Provider: Dr. 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 [employer] Required: No Accompanied by: daughter Is patient in pain?: Yes (chronic back pain) Pain scale (1-10): 8 Allergies Corticosteroids (Glucocorticoids) (steroids) Allergy (Verified 08/05/25 09:18) Hives lidocaine Adverse Reaction (Intermediate, Verified 08/05/25 09:18) Hives Medications Medication Instructions Recorded Confirmed Type blood sugar diagnostic (Blood #10 ea 04/26/20 08/05/25 History Glucose Test strips) ipratropium bromide 21 mcg (0.03 2 spray intranasal BID PRN 08/23/20 08/27/25 History %) nasal spray allergies albuterol sulfate 90 mcg/actuation 2 puff inhalation Q4H PRN 08/10/22 08/27/25 History aerosol inhaler shortness of breath or wheezing fexofenadine 180 mg tablet 180 mg PO DAILY allergies 08/10/22 08/27/25 History (Allergy Relief (fexofenadine)) levonorgestrel 17.5 mcg/24 hr (up 1 device intrauterine ONCE 08/10/22 08/27/25 History to 5 yrs) 19.5mg intrauterine control device tizanidine 4 mg tablet 4 mg PO Q8H PRN Muscle Spasm 08/10/22 08/27/25 History omeprazole 20 mg capsule,delayed 20 mg PO DAILY PRN gerd 08/16/22 08/27/25 History release fluoxetine 20 mg capsule 20 mg PO QHS mental health 12/28/22 08/27/25 History gabapentin 300 mg capsule 300 mg PO QHS nerve pain 12/28/22 08/27/25 History lisinopril 10 mg tablet 10 mg PO DAILY blood pressure 12/28/22 08/27/25 History ondansetron HCl 4 mg tablet 4 mg PO Q8H PRN nausea 12/28/22 08/27/25 History rimegepant 75 mg disintegrating 75 mg PO DAILY PRN migraine 02/04/24 08/27/25 History tablet (Nurtec ODT) headache semaglutide 2 mg/dose (8 mg/3 mL) 2 mg subcut QWEEK 07/05/25 08/05/25 History subcutaneous pen injector (Ozempic) BIPAP -Bilevel Positive Airway 07/06/25 08/05/25 History Pressure ([facility] INFORMATIONAL USE ONLY) CPAP - Continuous Positive Airway 07/06/25 08/05/25 History Pressure([facility] INFORMATIONAL USE ONLY) insulin glargine 100 unit/mL (3 10 unit (0.1 mL) subcut QPM #15 mL 07/07/25 08/27/25 Rx mL) subcutaneous pen (Lantus Solostar U-100 Insulin) pen needle, diabetic 31 gauge x #100 ea 07/07/25 08/05/25 Rx 5/32" topiramate 50 mg tablet 50 mg PO ONCE 08/05/25 08/27/25 History Nurse's Note: 10mm stone visualized on abdominal CT 07/05/25 while she was in ICU for sepsis and DKA. Last seen in our office 04-02-2019 Bladder scan PVR 44cc [facility] Medical History Nephrolithiasis Urinary tract infection Impingement of left shoulder Diabetes Fatty liver Gastric reflux BiPAP (biphasic positive airway pressure) dependence Sleep apnea Non-smoker History of stress test History of echocardiogram Cardiology follow-up encounter Abnormal ECG Prolonged Q-T interval on ECG Microalbuminuria LETITIA (obstructive sleep apnea) Back pain 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 Nausea Left shoulder pain Pain of left scapula Left upper extremity numbness Left shoulder strain Obstructive Sleep Apnea-Hypopnea Syndrome Fatty liver Type 2 diabetes mellitus with microalbuminuria Type 2 diabetes mellitus without complication, with long-term current use of insulin History of stent into kidney Anxiety Acute cholecystitis Segmental and somatic dysfunction of cervical region Migraines Acute bronchitis Acute respiratory insufficiency Dyspnea History of obstructive sleep apnea Elevated triglycerides with high cholesterol Calculus of left kidney Nonalcoholic hepatosteatosis Hydroureter, left Hydronephrosis, left Acute kidney injury Pyelonephritis Obesity Hypertension Type 2 diabetes mellitus Segmental and somatic dysfunction of lumbar region Vertigo Left upper quadrant abdominal pain Dysuria Segmental and somatic dysfunction of pelvic region Segmental and somatic dysfunction of thoracic region Lumbar facet arthropathy Lumbosacral spondylosis Radiculopathy of lumbosacral region Disc displacement, lumbar Degeneration of intervertebral disc of lumbosacral region Surgical History History of urethral stent (~2018) Hx laparoscopic cholecystectomy (~2005) H/O: (~2005) Family History Father Diabetes Myocardial infarction Pancreatic cancer Mother Alcohol abuse Drug abuse Grandfather Diabetes Grandmother Lung cancer Grandmother Heart disease Triple bypass surgery Social History household members: none Smoking Status: Never smoker alcohol intake: never substance use type: does not use caffeine: Yes Type: coffee what type of physical activity do you participate in: walking frequency: daily seatbelt use: always do you feel safe at home: Yes HPI HPI Urology Chief Complaint: new patient- 10mm kidney stone Details: TORI GARCIA, is a 45 F. She is here for evaluation and management of left kidney stone. She was admitted to the ICU with stone, UTI and sepsis, question DKA few months ago. Her overall health is ok now. She has a chronic prolonged QT. She has HgB A1C of 6.8. She does not have issues with lungs, seeing pulmonology next week. She is on BiPaP at home. She had shoulder surgery in June and had no issues immediately post op. She did have the admission to the hospital 2-3 weeks later. She has left flank that radiates into her abdomen. There is intermittent nausea. She denies gross hematuria, dysuria. ROS Const Constitutional: No chills, fatigue, fever(s), headache(s), night sweats, weakness, weight change, abnormal sleep pattern or change in appetite Eyes Eyes: No change in vision ENT ENT: No headache(s) or dry mouth Resp Respiratory: No cough, chest congestion, shortness of breath or wheezing Cardio Cardiology: Positive for other (No chest pain.); No shortness of breath, irregular heart rhythm or lightheadedness Gastro GI: Positive for abdominal pain and nausea/dyspepsia; No change in bowel habits, constipation, diarrhea or vomiting Musc Musculoskeletal: Positive for joint pain (left shoulder) and back pain; No abnormal gait Skin Skin: No yellowing of the eye, lesions, itchy eyes, rash or skin ulcer Neuro Neurology: No abnormal gait, confusion, dizziness, weakness, headache(s) or memory loss Psych Psychiatric: No abnormal sleep pattern, No change in appetite, No confusion and No memory loss Endo Endocrine: No fatigue, increased thirst/drinking or weight change Aller/Imm Allergy/Immunologic: No itchy eyes or wheezing Angel/Lymp Hematologic/Lymphatic: No easy bleeding, easy bruising or enlarged lymph nodes Exam Const General: cooperative, healthy appearing, comfortable, no acute distress, well developed and well groomed Orientation: alert and oriented x3 [facility] Head: normocephalic and atraumatic Ears: hearing grossly normal bilaterally and external ears normal Nose: external nose normal Eyes General: appearance normal, both eyes and all related structures Neck Neck: normal visual inspection and trachea midline Chest Chest palpation & inspection: normal inspection of the chest Resp Effort & Inspection: normal respiratory effort, able to speak in complete sentences and symmetric chest movement Cardio Rate: regular rate GI Inspection: normal to inspection and obesity Palpation: soft and nontender General: CVA tenderness on the left Skin General: no rashes or lesions noted Neuro General: patient alert, patient awake, patient oriented x3 and CN's II-XI intact bilaterally Extrem General: normal to inspection Psych Appearance: grossly normal and well kempt Mental Status: mental status grossly normal Results POC Urinalysis w/Micro Office Urine Color Last Edit by Cristina Fay on 08/27/25 08:58 Office Urine Clarity Last Edit by Cristina Fay on 08/27/25 08:58 Office Urine Glucose Negative Last Edit by Cristina Fay on 08/27/25 08:58 Office Urine Ketones Negative Last Edit by Cristina Fay on 08/27/25 08:58 Office Urine Bilirubin Negative Last Edit by Cristina Fay on 08/27/25 08:58 Office Urine Urobilinogen 0.2 mg/dL Last Edit by Cristina Fay on 08/27/25 08:58 Off Ur Spec [place] 1.010 Last Edit by Cristina Fay on 08/27/25 08:58 Office Urine pH 6 Last Edit by Cristina Fay on 08/27/25 08:58 Office Urine Protein Negative Last Edit by Cristina Fay on 08/27/25 08:58 Office Urine Blood Trace Last Edit by Cristina Fay on 08/27/25 08:58 Office Urine Blood Hemolyzed Negative Last Edit by Cristina Fay on 08/27/25 08:58 Office Urine Nitrate Negative Last Edit by Cristina Fay on 08/27/25 08:58 Off Ur Leukocytes Positive Last Edit by Cristina Fay on 08/27/25 08:58 Off Ur WBC Microscopic Last Edit by Cristina Fay on 08/27/25 08:58 Off Ur RBC Microscopic Last Edit by Cristina Fay on 08/27/25 08:58 Off Ur Bacteria Microscopic Last Edit by Cristina Fay on 08/27/25 08:58 [facility] 125 Coding Level of Care Code Off vis,new,level 4 Diagnoses Nephrolithiasis N20.0 Urinary tract infection N39.0 Back pain M54.9 Back pain laterality: left Assessment and Plan Assessment and Plan (1) Nephrolithiasis: Status: Acute (2) Urinary tract infection: Status: Acute (3) Back pain: Status: Acute Qualifiers: Back pain laterality: left Orders: Orders POC UA Automated w/Microscopy Today N39.0 - Urinary tract infection, site not specified Plan schedule cystoscopy with left ureteroscopy, laser lithotripsy, stone basket extraction, left ureteral stent insertion letters of optimization from pulmonology and cardiology 24hr UA after surgery The procedure, recovery and expectations were explained. The risks, benefits and alternatives were discussed, including but not limited to, the risks of anesthesia, bleeding, infection, injury, pain and the need for further intervention. We have discussed the risk of exposure to and/or potential harm posed by the COVID-19 virus with having a surgery/procedure at this time. A joint decision was made at this time to proceed with the scheduled surgery/procedure as indicated on the consent form. 08/27/25901 <Electronically signed by Saundra Christensen MD> Date Saundra Christensen MD
--- NOTE | 2025-09-16 08:31 | DCINST_ITS ---
Discharge Instructions Diet Discharge Diet: No restrictions Activity Discharge Activity: Return to Normal Activity Dressing / Incision Call your doctor if you observe: Fever of 101 or Higher, Inability to urinate and Inability to have a bowel movement Follow Up Care Please Follow Up With: Saundra Christensen MD Test Results: Test results from this visit will be discussed in further detail at your follow- up appointment, if applicable. Discharge Plan Admission Attending Provider: Saundra Christensen Primary Care Provider: Zeferino Leon Instructions Print Language: Sinhala Discharge Orders/Prescriptions Prescriptions: New phenazopyridine 200 mg tablet 200 mg PO TID PRN (Reason: pain) Qty: 30 3RF oxycodone-acetaminophen 5-325 mg tablet 1 tab PO Q8H PRN (Reason: pain) 3 Days Qty: 10 0RF ondansetron 4 mg tablet,disintegrating 4 mg PO Q8H PRN (Reason: nausea and vomiting) Qty: 10 0RF Continued (DME) blood sugar diagnostic [Blood Glucose Test] Strip See Rx Instructions .ROUTE .MEDSUPPLY Qty: 10 Rx Instructions: As directed ipratropium bromide 0.03 % spray,non-aerosol 2 spray INTRANASAL BID PRN (Reason: allergies) Rx Instructions: administer into each nostril fexofenadine [Allergy Relief (fexofenadine)] 180 mg tablet 180 mg PO DAILY levonorgestrel 17.5 mcg/24 hrs (5 yrs) 19.5 mg intrauterine device 1 device intrauterine ONCE Rx Instructions: as a single dose omeprazole 20 mg capsule,delayed release(DR/EC) 20 mg PO DAILY PRN (Reason: gerd) Patient Comments: Take 1 capsule by mouthndaily before breakfast. 1/2 hr before meal. gabapentin 300 mg capsule 300 mg PO QHS lisinopril 10 mg tablet 10 mg PO DAILY Patient Comments: Take 1 tablet by mouthEonce daily. fluoxetine 20 mg capsule 20 mg PO QHS Patient Comments: Take 1 capsule by mouthConce daily. topiramate 50 mg tablet 150 mg PO QHS Rx Instructions: 3 50mg tablets at bedtime albuterol sulfate 90 mcg/actuation HFA aerosol inhaler 2 puff INHALATION Q4H PRN (Reason: shortness of breath or wheezing) tizanidine 4 mg tablet 4 mg PO Q8H PRN (Reason: Muscle Spasm) Ozempic 2 mg/dose (8 mg/3 mL) pen injector 2 mg subcut TH (DME) BIPAP -Bilevel Positive Airway Pressure ([facility] INFORMATIONAL USE ONLY) Device See Rx Instructions .Route Patient Comments: VAuto: IPAP=19.2 EPAP=12.4 PS=6.8 Rx Instructions: As directed insulin glargine [Lantus Solostar U-100 Insulin] 100 unit/mL (3 mL) insulin pen 10 unit subcut QPM Qty: 15 0RF (DME) pen needle, diabetic 31 gauge x 5/32" needle See Rx Instructions .ROUTE .MEDSUPPLY Qty: 100 0RF Rx Instructions: As directed Nurtec ODT 75 mg tablet,disintegrating 75 mg PO DAILY PRN (Reason: migraine headache) amoxicillin-pot clavulanate [Augmentin] 500-125 mg tablet 1 tab PO BID Qty: 14 0RF Referrals / Follow Up: Zeferino Leon MD [Primary Care Provider, Medical] Disposition Disposition (needs filled in before D/C Order can be placed): Home, Self Care
--- NOTE | 2025-09-16 08:32 | OP.PCM_ITS ---
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 Type of Anesthesia: General RN Documented Start/Stop Times: Operation Date: 09/16/25 09:30 Case Time Into Pre-Op 09/16/25 07:55 Anesthesia Start 09/16/25 09:46 Into Room 09/16/25 09:46 Out of Pre-Op 09/16/25 09:50 Procedure Start 09/16/25 10:10 Procedure End 09/16/25 10:49 Anesthesia End 09/16/25 10:59 Out of Room 09/16/25 10:59 Into Recovery 09/16/25 11:00 Out of Recovery 09/16/25 11:47 Into Phase II Recovery 09/16/25 11:48 Procedure Start Time: 10:10 Procedure Stop Time: 10:49 Select all DRAINS/GRAFTS/IMPLANTS that apply: Drains Drain details: 6 Salvadorean, 28 cm JJ stent Estimated Blood Loss: <5cc Specimen collected: Yes Description of specimen(s) removed: Left renal calculi fragments Description of surgery: The patient was taken to the operating room placed on the operating room table. Anesthesia monitored the head, neck, airway, IV access and vital signs throughout the case. Once anesthesia was appropriately administered, she was placed into dorsolithotomy position was prepped and draped in usual sterile fashion. The cystoscope was inserted through the urethra under direct visualization into the urinary bladder. The bladder mucosa was visualized revealing diffuse cystitis cystica with no mass or foreign body. The left ureteral orifice was gently cannulated with a 0.035 Glidewire followed by a second 1. One of the Glidewire's that was then utilized for placement of the flexible ureteroscope into the left ureter. It then advanced all the way into the kidney where the stone was identified. Using a 200 µm thulium laser fiber, the stone was broken into multiple small fragments. At this time some of the larger fragments were stone basket retrieved. On the third retrieval, it was noticed that the ureter began to become edematous and was more difficult to pass through with the ureteroscope. The decision was made to use the remaining safety wire for placement of a ureteral stent. The fragments remaining were very small approximately 1 to 2 mm in size. The entire length of the ureter was directly visualized revealing no evidence of injury. The cystoscope was then backloaded with a 0.035 Glidewire and a 6 Salvadorean 28 cm stent was placed over the wire with good positioning in the renal pelvis as well as the urinary bladder. The patient's bladder was then emptied and the procedure was terminated. The patient was awakened and taken to the recovery room in good condition. There were no complications during the procedure. Surgical Findings: 1 cm right renal stone, broken into very small fragments the largest of which were removed. 6 Salvadorean by 28 cm stent Complications Complications: No Admit VTE Documentation VTE Present on Admission: Yes VTE Mechan Device Prophylaxis: SCD's VTE Pharm Prophylaxis ordered?: No Reason prophylaxis not ordered: Treatment Not Indicated
--- NOTE | 2025-09-16 08:34 | PCM.PRE.AN2 ---
ASA Classification* ASA Classification ASA Classification: 3 Assessment & Plan Anesthesia* Anesthesia Assessment Anesthesia Assessment: Discussed sedation and/or anesthesia options, risks, benefits, and alternatives with patient/parents/legal guardian/POA. Questions invited. The patient/parents/legal guardian/POA seems to understand and agrees to proceed with anesthesia plan. Reviewed the physical assessment, medical history, allergy history and patient home medications list prior to surgery/procedure/anesthetic and documented any changes. Performed airway and anesthesia risk assessments. Anesthesia Type Anesthesia Type: General History Source History Obtained from:: Patient and Chart Anesthesia Focused Assessment* Temperature: 98.1 F Pulse Rate: 69 Blood Pressure: 117/72 Respiratory Rate: 18 Pulse Ox: 98 Oxygen Delivery Method: Room Air Airway Assessment Mouth opens: >3 cm Mallampati Score: IV Teeth Condition: Intact Neck Range of motion (ROM): Limited ROM (Somewhat Decreased) Labs Anesthesia Preop lab: CBC WBC, (4.4-11.0) 10.0 K/mm3 08/11/25, 10:38 RBC, (4.2-5.4) 4.33 M/mm3 08/11/25, 10:38 Hgb, (12.0-15.0) 13.3 g/dL 08/11/25, 10:38 Hct, (37-47) 39.7 % 08/11/25, 10:38 Plt Count, (150-450) 219 K/mm3 08/11/25, 10:38 CHEMISTRY Potassium, (3.3-5.1) 3.9 mmol/L 07/23/25, 08:31 Sodium, (133-145) 137 mmol/L 07/23/25, 08:31 Magnesium, (1.5-2.2) 1.9 mg/dL 07/06/25, 06:05 Phosphorus, (2.7-4.5) 2.4 mg/dL L 07/06/25, 06:05 BUN, (4-19) 13 mg/dL 07/23/25, 08:31 Creatinine, (0.70-1.20) 0.89 mg/dL 07/23/25, 08:31 Glucose, (70-99) 145 mg/dL H 07/23/25, 08:31 POC Glucose, (74-106) 202 mg/dL H 07/07/25, 08:09 TSH, (0.358-3.74) 1.54 uIU/mL 08/05/23, 10:00 COAG PT, (11.7-14.9) 14.4 SECONDS 08/05/23, 11:15 Urine Test Negative Negative Today, 07:50 Tst Clinic Negative 05/26/18, 16:29 Pre-Assessment Diagnosis/Proposed Procedure Planned Operative Procedure(s): CYSTO LEFT URETERAL LASER LITHOTRIPSY STONE BASKET EXTRACTION WITH STENT INSERTION Anesthesia History Anesthesia History - tile 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 When Was Last Pacemaker Check QUESTION #4 FULL TEXT: You/Your Family Experience fever (hyperthermia) with Anesthesia Last Oral Intake Last Oral intake: Last Oral Intake NPO since 05:00 09/16/25 08:17 Meds taken in AM with sips of Yes 09/16/25 08:17 water? Meds patient instructed to SEE MED REC 09/16/25 08:17 take am of surgery Any additional information?: Yes Meds taken in AM with sips of water?: Yes PONV PONV - tile conduit layer: PONV - tile conduit layer Female Yes 09/10/25 10:09 HX of Motion Sickness No 09/10/25 10:09 HX of N/V After Surgery No 09/10/25 10:09 Non-Smoker Yes 09/10/25 10:09 Duration of Surgery greater Yes 09/10/25 10:09 than 60 minutes Number of Risk Factors 3 09/10/25 10:09 PONV Score Moderate Risk 09/10/25 10:09 Height & Weight Height & Weight: Anesthesia: Height & Weight Height 5 ft 7 in 09/16/25 08:17 Weight: 125 kg 09/16/25 08:17 Body Mass Index (BMI) 43.1 09/16/25 08:17 Respiratory Assessment Respiratory Assessment - tile conduit layer: Respiratory Tract Infection Hx - tile conduit layer Hx Respiratory Tract Infection No 09/10/25 10:09 STOP Sleep Apnea STOP Sleep Apnea - tile conduit layer: STOP Sleep Apnea - tile conduit layer Hx Hypertension Yes 09/10/25 10:09 Hx Sleep Apnea Yes 09/10/25 10:09 CPAP Yes 09/10/25 10:09 BIPAP No 09/10/25 10:09 Do you snore loudly (louder than talking or can be heard Do you often feel tired/ fatigued/ sleepy during daytime? Has anyone observed you stop breathing during sleep? STOP Results Positive 09/10/25 10:09 QUESTION #5 FULL TEXT : Do you snore loudly (louder than talking or can be heard through closed doors)? 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 Specify any problems Hx of Preganancy in last 3 No 09/10/25 10:09 Months Nurse Filling Out Transfusion DSCHRIBER 09/10/25 10:09 & Questions: Date: 09/10/25 09/10/25 10:09 Time: 10:10 09/10/25 10:09 Patient unable to answer at this time (ie. confused, unrespo /Reproduction History /Reproductive History - tile conduit layer: /Reproductive Hx- tile conduit layer Hx Now Gestational Age (in weeks): EDC: Hx Hx Para Hx Section SAB No 09/10/25 10:09 Does the father of the baby or his family experience fever w Father of the baby Malignant Hypertension history comment Active Medications Active Medications: Current Medications Generic Name Dose Route Start Last Admin Trade Name Freq PRN Reason Stop Dose Admin Lactated Ringer's 1,000 mls @ 15 mls/hr 09/16/25 08:00 09/16/25 08:23 IV 15 mls/hr .Q48H GEORGE Administration PFSH Medical History Insulin dependent diabetes mellitus Hypertension Depression Fatty liver Gastric reflux BiPAP (biphasic positive airway pressure) dependence Non-smoker History of stress test History of echocardiogram Cardiology follow-up encounter Microalbuminuria Fatty liver Anxiety Migraines Acute bronchitis Home Medications Medication Instructions Recorded Last Taken Type blood sugar diagnostic (Blood #10 ea 04/26/20 Unknown History Glucose Test strips) ipratropium bromide 21 mcg (0.03 2 spray intranasal BID PRN 08/23/20 08/03/23 History %) nasal spray allergies albuterol sulfate 90 mcg/actuation 2 puff inhalation Q4H PRN 08/10/22 08/03/23 History aerosol inhaler shortness of breath or wheezing fexofenadine 180 mg tablet 180 mg PO DAILY allergies 08/10/22 09/16/25 05:00 History (Allergy Relief (fexofenadine)) levonorgestrel 17.5 mcg/24 hr (up 1 device intrauterine ONCE 08/10/22 06/23/25 History to 5 yrs) 19.5mg intrauterine control device tizanidine 4 mg tablet 4 mg PO Q8H PRN Muscle Spasm 08/10/22 06/20/25 History omeprazole 20 mg capsule,delayed 20 mg PO DAILY PRN gerd 08/16/22 09/16/25 05:00 History release fluoxetine 20 mg capsule 20 mg PO QHS mental health 12/28/22 06/22/25 History gabapentin 300 mg capsule 300 mg PO QHS nerve pain 12/28/22 06/22/25 History lisinopril 10 mg tablet 10 mg PO DAILY blood pressure 12/28/22 06/22/25 History rimegepant 75 mg disintegrating 75 mg PO DAILY PRN migraine 02/04/24 11/10/24 History tablet (Nurtec ODT) headache semaglutide 2 mg/dose (8 mg/3 mL) 2 mg subcut TH 07/05/25 09/07/25 History subcutaneous pen injector (Ozempic) BIPAP -Bilevel Positive Airway 07/06/25 Unknown History Pressure ([facility]FORM[facility] USE ONLY) insulin glargine 100 unit/mL (3 10 unit (0.1 mL) subcut QPM #15 mL 07/07/25 Unknown Rx mL) subcutaneous pen (Lantus Solostar U-100 Insulin) pen needle, diabetic 31 gauge x #100 ea 07/07/25 Unknown Rx " topiramate 50 mg tablet 150 mg PO QHS 08/05/25 Unknown History amoxicillin 500 mg-potassium 1 tab PO BID #14 tabs 09/10/25 Unknown Rx clavulanate 125 mg tablet (Augmentin) Allergy/AdvReac Type Severity Reaction Status Date / Time Corticosteroids Allergy Hives Verified 09/16/25 08:16 (Glucocorticoids) (steroids) lidocaine AdvReac Intermediate Hives Verified 09/16/25 08:16 Family History Father Diabetes Myocardial infarction Pancreatic cancer Mother Alcohol abuse Drug abuse Grandfather Diabetes Grandmother Lung cancer Grandmother Heart disease Triple bypass surgery Surgical History Hx of shoulder surgery History of urethral stent (~2018) Hx laparoscopic cholecystectomy (~2005) H/O: (~2005) Social History household members: none Smoking Status: Never smoker alcohol intake: never substance use type: does not use caffeine: Yes Type: coffee what type of physical activity do you participate in: walking frequency: daily seatbelt use: always do you feel safe at home: Yes Review of Systems (Anesthesia) ROS Narrative System reviewed and no additional complaints, except as documented.
--- NOTE | 2025-09-16 09:30 | CALC_PTH ---
PATIENT: TORI GARCIA LOC: [facility] [place] U#:[id number] AGE/SX: 45/F ROOM: RE09/16/[address]: Dr. Saundra Christensen MD : 1980 BED: DIS: 09/16/2025 SPEC #: [id number] RECD: 09/16/25 11:06 STATUS: SAL CAMARENA #: [id number] PEYTON: 09/16/25 09:[address]: Saundra Christensen DEPT: SURGICAL PATHOLOGY RECD BY: Case Mina ENTERED: 09/16/25 13:18 SP TYPE: Calculi OTHR DR: Dr. Zeferino Leon MD Tissues: A - CALCULI Procedures: Surgery Specimen Level I HEADER OPERATION: Cysto, left ureteroscopy, laser lithotripsy, stone basket PRE-OP DIAGNOSIS: Nephrolithiasis, urinary tract infection, back pain TISSUE SUBMITTED: A- Left renal calculi GROSS DIAGNOSIS A. Left kidney: - Urinary calculi submitted for chemical analysis (gross examination only) COMMENT The calculus is submitted in its entirety for chemical stone analysis. The results from this study will be reported separately. GROSS DESCRIPTION A. Received fresh labeled the patient's name and date of . Designated as "left renal calculi in OR" are 2 brown irregular calculi, 0.2 cm and 0.3 cm. No sections are submitted. The specimen is for gross examination only. The specimen is sent for stone analysis. DE 09/16/2025 CPT:64718
[2025-09-16] MEDS: Cefazolin 1 GM/5 ML Vial 3 GM IV (09:46)
[2025-09-16] MEDS: fentaNYL 100 MCG/2 ML Ampul IV (09:52)
--- NOTE | 2025-09-16 11:21 | PCM.POST.ANE ---
Anesthesia: Postop Eval I Current Vital Signs Temperature: 97.7 F Pulse Rate: 71 Blood Pressure: 139/79 Respiratory Rate: 16 Pulse Ox: 95 Oxygen Delivery Method: Nasal Cannula Oxygen Flow Rate (L/min): 4 Assessment Airway patent: Yes Spontaneous unlabored respirations: Yes Mental status: Awake and Calm nausea: No Vomiting: No Anesthesia Complication: No Fluid Hydration Crystalloid volume administer (ml): 700 Total IV fluid infused: 700 Progress Note Anesthesia document: Postop Eval 1 completed: Yes
--- NOTE | 2025-09-16 14:26 | POSTOPAN2_ITS ---
Anesthesia Postop Eval I Sum Postop Eval Completion status Anesthesia document: Postop Eval 1 completed: Yes Anesthesia Postop Eval I Summary Anesthesia Postop Eval I Summary: Anesthesia Postop Eval I: Assessment Summary Airway patent Yes 09/16/25 11:21 SENIOR JAVASCRIPT ENGINEER.[email or web address] Spontaneous unlabored Yes 09/16/25 11:21 SENIOR JAVASCRIPT ENGINEER.GDOTT respirations Mental status Awake,Calm 09/16/25 11:21 SENIOR JAVASCRIPT ENGINEER.GDOTT nausea No 09/16/25 11:21 SENIOR JAVASCRIPT ENGINEER.GDOTT Vomiting No 09/16/25 11:21 SENIOR JAVASCRIPT ENGINEER.GDOTT Anesthesia Postop Eval I: Fluid Summary Crystalloid volume administer 700 09/16/25 11:21 SENIOR JAVASCRIPT ENGINEER.GDOTT (ml) Colloids volume administered ( ml) Blood Product volume administered (ml) Total IV fluid infused 700 09/16/25 11:21 SENIOR JAVASCRIPT ENGINEER.GDOTT Anesthesia Postop Eval I: Summary Notes Anesthesia Complication No 09/16/25 11:21 SENIOR JAVASCRIPT ENGINEER.GDOTT Anesthesia Complication Comment: Post-operative progress note Anesthesia: Postop Eval II Evaluation Mental status: Awake and Calm Pain Level: 0 nausea: No Vomiting: No Complications Anesthesia Complication: No
--- NOTE | 2025-09-16 14:26 | PCM.POSTANE2 ---
Anesthesia Postop Eval I Sum Postop Eval Completion status Anesthesia document: Postop Eval 1 completed: Yes Anesthesia Postop Eval I Summary Anesthesia Postop Eval I Summary: Anesthesia Postop Eval I: Assessment Summary Airway patent Yes 09/16/25 11:21 EVALUATION ASSISTANT.GDOTT Spontaneous unlabored Yes 09/16/25 11:21 EVALUATION ASSISTANT.GDOTT respirations Mental status Awake,Calm 09/16/25 11:21 EVALUATION ASSISTANT.GDOTT nausea No 09/16/25 11:21 EVALUATION ASSISTANT.GDOTT Vomiting No 09/16/25 11:21 EVALUATION ASSISTANT.GDOTT Anesthesia Postop Eval I: Fluid Summary Crystalloid volume administer 700 09/16/25 11:21 EVALUATION ASSISTANT.GDOTT (ml) Colloids volume administered ( ml) Blood Product volume administered (ml) Total IV fluid infused 700 09/16/25 11:21 EVALUATION ASSISTANT.GDOTT Anesthesia Postop Eval I: Summary Notes Anesthesia Complication No 09/16/25 11:21 EVALUATION ASSISTANT.GDOTT Anesthesia Complication Comment: Post-operative progress note Anesthesia: Postop Eval II Evaluation Mental status: Awake and Calm Pain Level: 0 nausea: No Vomiting: No Complications Anesthesia Complication: No
== END 2025-09-16 12:37 | disposition home or self-care (01) ==
LOC: SDC 06:58 → AC 06:59
PROVIDERS: Anesthesiology; PCP Family Medicine; Referring Provider Urology; Visit Provider Urology
DX: N20.0 Calculus of kidney (principal); E11.9 Type 2 diabetes mellitus without complications; N39.0 Urinary tract infection, site not specified; R11.0 Nausea; E78.00 Pure hypercholesterolemia, unspecified; G89.29 Other chronic pain; I10 Essential (primary) hypertension; M54.9 Dorsalgia, unspecified; G47.33 Obstructive sleep apnea (adult) (pediatric); Z99.89 Dependence on other enabling machines and devices; Z90.49 Acquired absence of other specified parts of digestive tract
CPT/HCPCS: 52356; 52352; 00873; 76000; 81025; 82360; 82962; 88300; C1769; C2617; J2405

== ENCOUNTER 2025-09-27 21:09 | Inpatient (IN) | payer OTHER, SELFPAY ==
[2025-09-27 21:10] VITALS: BP 116/71; PULSE 80; RESP 16; TEMP 36.6; O2SAT 98; BMI 43.7
--- NOTE | 2025-09-27 21:23 | CT_ITS ---
PROCEDURE: CT ABDOMEN/PELVIS WITHOUT CONTRAST 09/27/2025 REASON FOR EXAM: LEFT FLANK PAIN AND FREQUENCY TECHNIQUE: Procedure Code: CTABDPEL Modality: CT Procedure: ABDOMEN/PELVIS WITHOUT CONT Noncontrast technique limits evaluation of the abdominal and pelvic viscera. Coronal and Sagittal reconstruction series were provided. One or more dose reduction techniques were used (e.g., Automated exposure control, adjustment of the mA and/or kV according to patient size, use of iterative reconstruction technique). RADIATION DOSE SUMMARY: CTDlvol: 23.94 mGy DLP: 1375.98 mGycm COMPARISON: 07/05/2025 FINDINGS: Lung bases: Clear. Liver: Diffuse hepatic steatosis. Gallbladder: Surgically absent. Spleen: Unremarkable. Pancreas: Unremarkable. Adrenals: Unremarkable. Kidneys: Interval double-J left nephroureteral stent placement, with resolution of the prior left hydronephrosis. Previously seen stone at the left ureteropelvic junction is no longer seen. Few additional punctate nonobstructive left renal stones are unchanged. No urolithiasis or hydronephrosis on the right. Bladder: Unremarkable. Reproductive Organs: IUD within the uterine cavity. Unchanged small simple appearing left ovarian cyst measuring up to approximately 4 cm; no follow-up indicated. Bowel: No evidence of obstruction or active inflammatory process. Normal appendix. Lymph nodes: No suspicious lymph node enlargement. Vasculature: Normal caliber abdominal aorta and IVC. Peritoneum / Retroperitoneum: No ascites or free air. Bones: Mild degenerative changes of the spine. CT/Abdomen/Pelvis without Cont IMPRESSION: No acute intra-abdominal abnormality. Interval left nephroureteral stent place ment with resolved left hydronephrosis. Previously seen stone at the left ureteropelvic junction no longer present. Ad ditional punctate nonobstructive left renal stones are unchanged. Reading Location: [id number]
[2025-09-27] MEDS: 0.9% Normal Saline (1000mL) 1,000 ML 250 ML IV (21:37)
[2025-09-27 21:38] LABS: Color, Urine Yellow (Yellow); Glucose, Dipstick 100 mg/dl (Normal); Ketone-Dipstick Negative (Negative); Leukocyte Esterase-Dipstick 500 /ul (Negative); Nitrite-Dipstick Positive (Negative); Occult Blood-Urine 25 /ul (Negative); Protein-Dipstick 100 mg/dl (Negative); Specific Gravity, Urine 1.020 (1.002-1.030); Urine Bilirubin Dipstick Negative (Negative)
[2025-09-27 21:43] LABS: Hematocrit 35.9 % (37-47); Hemoglobin 12.3 g/dL (12.0-15.0); Immature Granulocytes Count 0.210 X10^3/uL (0.0-0.0); Mean Corp Hgb Conc 34.3 g/dL (32-36); Mean Corpuscular Volume 90.9 fL (81-99); Mean Platelet Vol. 9.0 fl (6.2-12.0); NRBC Flagged by Analyzer 0 % (0-5); Platelet Count 247 K/mm3 (150-450); RBC Distribution Width CV 13.6 % (11.6-14.6); RBC Distribution Width SD 45.1 fl (35.1-43.9); Red Blood Count 3.95 M/mm3 (4.2-5.4); White Blood Count 12.2 K/mm3 (4.4-11.0)
--- OUTSIDE RECORDS SUMMARY | 2025-09-27 21:43 | XMS RPT_ITS | CCD ---
Author Organization [facility] ion [facility] Care Team Providers Care Working Supervisor Name Role Phone Dossi Bibiana BEEBE Unavailable Roya Dixon Unavailable Roya Dixon Unavailable Amparo Hitchcock MD Unavailable [phone] Ivette Grimes MD Primary Care Provider [facility], Keti Unavailable Dr. Ivette Grimes Primary Care Provider Dr. Ivette Grimes Referring Provider Dr. Bibiana Rehman Attending Provider [phone] Dr. Munir Siddiqui Attending Provider Dr. Marin Villalpando Attending Provider [phone] Dr. Munir Lucas Attending Provider Dr. Sam Guadarrama Referring Provider Ivette Grimes MD Primary Care Provider [facility], Keti Unavailable [facility], Keti Unavailable Dr. Ivette Grimes Primary Care Provider Dr. Ivette Grimes Referring Provider Dr. Bibiana Rehman Attending Provider [phone] Ivette Grimes MD Primary Care Provider Dr. Ivette Grimes Primary Care Provider Dr. Ivette Grimes Referring Provider Dossi, Dr. Mccarty Attending Provider [phone] Dr. Primo Ceron Attending Provider [place], Dr. Mcgarry Primary Care Provider Sydney, Dr. Mcgarry Referring Provider Dossi, Dr. Mccarty Attending Provider [phone] Cesar, Dr. Churchill Attending Provider [place], Dr. Mcgarry Primary Care Provider [place], Dr. Mcgarry Referring Provider Dossi, Dr. Mccarty Attending Provider [phone] Sydney, Dr. Mcgarry Primary Care Provider [place], Dr. Mcgarry Referring Provider Dossi, Dr. Mccarty Attending Provider [phone] Dr. Primo Ceron Attending Provider Cesar, Dr. Churchill Attending Provider [phone] [place] Ivette SHEARER Primary Care Provider [facility], Keti Unavailable [place], Dr. Mcgarry Primary Care Provider [place], Dr. Mcgarry Referring Provider Dossi, Dr. Mccarty Attending Provider [phone] Ernesto SHEARER, Jemal Unavailable [place], Dr. Mcgarry Primary Care Provider [place], Dr. Mcgarry Referring Provider Dossi, Dr. Mccarty Attending Provider [phone] [place], Dr. Mcgarry Primary Care Provider [place], Dr. Mcgarry Referring Provider Dossi, Dr. Mccarty Attending Provider [phone] Jess REVIEW ASSISTANT, FADUMO Ba Attending Provider Jyoti, Dr. Banuelos Attending Provider [phone] ELLE RASHEED Attending Unavailable SAM GUADARRAMA Referring Unavailable [facility], IVETTE James Primary Care Unavailable RASHEED, [...] Unavailable SYDNEY, IVETTE James Primary Care Unavailable [place], Dr. Mcgarry Primary Care Provider [place], Dr. Mcgarry Referring Provider Dossi, Dr. Mccarty Attending Provider [phone] [place], Dr. Mcgarry Primary Care Provider [place], Dr. Mcgarry Referring Provider Dossi, Dr. Mccarty Attending Provider [phone] Sydney, Dr. Mcgarry Primary Care Provider [place], Dr. Mcgarry Referring Provider Dossi, Dr. Mccarty Attending Provider [phone] [place], Dr. Mcgarry Primary Care Provider [place], Dr. Mcgarry Referring Provider Dossi, Dr. Mccarty Attending Provider [phone] [place], Dr. Mcgarry Primary Care Provider [place], Dr. Mcgarry Referring Provider Dossi, Dr. Mccarty Attending Provider [phone] Referred, Self Primary Care Provider Unavailabl e Referred, Self Referring Provider Unavailable [facility], Keti Unavailable Dosparam, Dr. Mccarty Attending Provider [phone] Referred, Self Primary Care Provider Unavailabl e Referred, Self Referring Provider Unavailable [place], Dr. Mcgarry Primary Care Provider Jyoti, Dr. Banuelos Attending Provider Dr. Sosa Mendez Referring Provider [phone] Dr. Niurka Kendall Emergency Provider Vanessa, Dr. [...] Provider Ivette Grimes MD Primary Care Provider [facility], Keti Unavailable Haagen LIBRARY CLERK TALKING BOOKS.CHEMISTRY LECTURER, Cindy Unavailable Suppan LIBRARY CLERK TALKING BOOKS.CHEMISTRY LECTURER, Lubna A Unavailable Suppan LIBRARY CLERK TALKING BOOKS.CHEMISTRY LECTURER, Lubna A Unavailable Suppan LIBRARY CLERK TALKING BOOKS.CHEMISTRY LECTURER, Lubna A Unavailable Dr. Ivette Grimes MD Primary Care Provider Dr. Sam Pearl MD Attending Provider Dr. Sam Pearl MD Emergency Provider Dr. Ivette Grimes MD Referring Provider Dossi CONCEPCIÓN, Dr. Mccarty Attending Provider Dr. Buddy Hall DO Attending Provider Dr. Buddy Hall DO Emergency Provider Tanya REVIEW ASSISTANT-CJenni Attending Provider Tanya REVIEW ASSISTANT-CJenni Referring Provider Dr. Ivette Grimes MD Attending [...] Provider Franko SHEARER, Dr. Bennett Other Provider Carlos A SHEARER, Dr. Khan Other Provider Ian SHEARER, Dr. Mcdermott Other Provider [phone] Nuno SHEARER, Dr. Pedersen Other Provider Franca SHEARER, Dr. Saldivar Other Provider [phone] Chhaya SHEARER, Dr. Jones Other Provider Unavailabl dinh Ko MD, Dr. Meza Other Provider [phone] Rebel SHEARER, Dr. August Other Provider Bin [...] Unavaila ble Arleth SHEARER, Dr. Jose Juan Alvarado Other Provider Amos SHEARER, Dr. Salinas Other Provider Jo SHEARER, Dr. Daily Other Provider Osmany SHEARER, Dr. Tillman Other Provider Dr. Derik Stack DO Other Provider Rosalva SHEARER, Dr. Brittany Pfeiffer Other Provider Jose SHEARER, Dr. Escobar Other Provider Yaneth SHEARER, Dr. Childress Other Provider Franko SHEARER, Dr. Sabrina Other Provider Carlos A SHEARER, Dr. Khan Other Provider [...] Provider Lulú SHEARER, Dr. Acosta Other Provider [phone] Derek SHEARER, Dr. Regalado Other Provider Rajendra LEMUS, Dr. Kaur Other Provider Newton SHEARER, Dr. Alcantara Other Provider José Antonio SHEARER, Dr. Valentino Other Provider Manuel SHEARER, Dr. Mcgarry Other Provider [phone] Arleth SHEARER, Dr. Jose Juan Alvarado Attending [...] Osmany SHEARER, Dr. Tillman Nurse Practitioner [phone] Sreekanth LEMUS, Dr. More Nurse Practitioner Rosalva SHEARER, Dr. Brittany Pfeiffer Nurse Practitioner Jose SHEARER, Dr. Escobar Nurse Practitioner Yaneth SHEARER, Dr. Childress Nurse Practitioner [phone] Franko SHEARER, Dr. Bennett Nurse Practitioner Carlos A SHEARER, Dr. Khan Nurse Practitioner Ian SHEARER, Dr. Mcdermott Nurse Practitioner Nuno SHEARER, Dr. Pedersen Nurse Practitioner Franca SHEARER, Dr. Saldivar Nurse Practitioner [phone] Chhaya SHEARER, Dr. Jones Nurse Practitioner Unavail jamila Ko MD, Dr. Meza Nurse Practitioner [phone] Rebel SHEARER, Dr. August Nurse Practitioner Bin SHEARER, Dr. Live Nurse Practitioner Svetlana SHEARER, Dr. Ramirez Nurse Practitioner [phone] Jules LEMUS, Dr. Mejía Nurse Practitioner Lulú SHEARER, Dr. Acosta Nurse Practitioner Derek SHEARER, Dr. Regalado Nurse Practitioner Rajendra LEMUS, Dr. Kaur Nurse Practitioner Newton SHEARER, Dr. Alcantara Nurse Practitioner [phone] José Antonio SHEARER, Dr. Valentino Nurse Practitioner Manuel SHEARER, Dr. Mcgarry Nurse Practitioner [phone] Arleth SHEARER, Dr. Jose Juan Alvarado Attending [...] JENNI JAIN Attending Unavailabl e SYDNEY, IVETTE James Primary Care Unavailable Sydney, Ivette Primary Care Unavailable Brett Quiroga Attending Unavailable Mollison, Brett Referring Unavailable Sydney, Ivette Primary Care Unavailable Mollison, Brett Attending Unavailable DinoisonBrett Referring Unavailable [place], Ivette Referring Unavailable [place], Ivette Attending Unavailable Sydney, Ivette Primary Care Unavailable Mollison, Brett Referring Unavailable Mollison, Brett Attending Unavailable [place], Ivette Primary Care Unavailable Sydney, Ivette Referring Unavailable [place], Ivette Attending Unavailable Sydeny, Ivette Primary Care Unavailable Assessment, Health Risk Referring Unavaila ble Assessment, Health Risk Attending Unavaila ble Sydney, Ivette Primary Care Unavailable [place], Ivette Primary Care Unavailable [place], Ivette Referring Unavailable [place], Ivette Attending Unavailable [place], Ivette Primary Care Unavailable Sydney, Ivette Referring Unavailable Bibiana Rehman Attending Unavailable [place], [facility] Primary Care Unavailable Jenni Jain Referring Unavailable Jenni Jain Attending Unavailable [place], Ivette Primary Care Unavailable Sydney, Ivette Referring Unavailable Saundra Christensen Attending Unavailable [place], Ivette Primary Care Unavailable [place], Ivette Referring Unavailable Dossi, Bibiana Attending Unavailable [place], Ivette Primary Care Unavailable [place], Ivette Referring Unavailable Dossi, Bibiana Attending Unavailable [place], Ivette Primary Care Unavailable Sydney, Ivette Referring Unavailable Dossi, Bibiana Attending Unavailable [place], Ivette Primary Care Unavailable Sydney, Ivette Referring Unavailable Jess DENNIS, Jesenia Attending Unavailable Mollison, Brett Referring Unavailable Vin Montes Attending Unavailable [place], Ivette Primary Care Unavailable [place], Ivette Primary Care Unavailable Buddy Hall Attending Unavailable [place], Ivette Primary Care Unavailable Sydney, Ivette Referring Unavailable Sydney, Ivette Attending Unavailable Sydney, Ivette Attending Unavailable [place], Ivette Referring Unavailable [place], Ivette Primary Care Unavailable Shana Mendoza Admitting Unavailable Shana Mendoza Consulting Unavailable Brittany Harrison Attending Unavailable [place], Ivette Primary Care Unavailable Jose Juan Reinoso Consulting Unavailable Brittany Harrison Consulting Unavailable Sydney, Ivette Primary Care Unavailable [place], Ivette Referring Unavailable Molldeep, Brett Attending Unavailable Sydney, Ivette Referring Unavailable [place], Ivette Primary Care Unavailable Dossi, Bibiana Attending Unavailable [place], Ivette Primary Care Unavailable [place], Ivette Referring Unavailable Rivka Malloy Attending Unavailable [place], Ivette Primary Care Unavailable RadhanesSaundra mahmood Referring Unavailable Saundra Christensen Attending Unavailable Shana Mendoza Consulting Unavailable Brittany Harrison Attending Unavailable Shana Mendoza Admitting Unavailable [place], Ivette Primary Care Unavailable Jose Juan Reinoso Consulting Unavailable [place], Ivette Primary Care Unavailable Sam Pearl Attending Unavailable [place], Ivette Referring Unavailable Dossi, Bibiana Attending Unavailable [place], Ivette Primary Care Unavailable [place], Ivette Referring Unavailable Mollison, Brett Attending Unavailable [place], Ivette Primary Care Unavailable [place], Ivette Referring Unavailable Sydney, Ivette Primary Care Unavailable Dossi, Bibiana Attending Unavailable [place], Ivette Primary Care Unavailable [place], Ivette Referring Unavailable Dossi, Bibiana Attending Unavailable [place], Ivette Referring Unavailable Mollison, Brett Attending Unavailable [place], Ivette Primary Care Unavailable Sydney, Ivette Referring Unavailable Dossi, Bibiana Attending Unavailable [place], Ivette Primary Care Unavailable Sydney, Ivette Referring Unavailable Mollison, Brett Attending Unavailable [place], Ivette Primary Care Unavailable [facility] Referring Unavailable Brett Quiroga Attending Unavailable [facility] Primary Care Unavailable [facility] Referring Unavailable Saundra Christensen Attending Unavailable [facility] Primary Care Unavailable [facility] Referring Unavailable Jesenia Mercado NP Attending Unavailable [facility] Primary Care Unavailable [facility] Primary Care Unavailable Saundra Christensen Attending Unavailable Saundra Christensen Consulting Unavailable Saundra Christensen Referring Unavailable Shana Mendoza Attending Unavailable [facility] Unavailable Jose Juan Reinoso Attending Unavailable Brad Trinidad Consulting Unavailable Killian Osorio Consulting Unavailable Primo Ceron Consulting Unavailable Derik Stack Consulting Unavailable Brittany Blackwell Consulting Unavailable Shawn Garcia Consulting Unavailable Monroe Wolfe Consulting Unavailable Sabrina Abdul Consulting UnavailBill Castanon Consulting Unavailable Baldemar Sosa Consulting Unavailable Slava Reina Consulting Unavailable Janna Schulte Consulting Unavailable Karen Shaver Consulting Unavailable Susana Ko Consulting Unavailable Mata Luque Consulting Unavailable Calos Steward Consulting Unavailable James Mota Consulting Unavailable DheAlfonzo virgen Consulting Unavailable Dave Chino Consulting Unavailable Sabine Reed Consulting Unavailable Vincent Drew Consulting Unavailable Quinton Glez Consulting Unavailable Chicho Chou Consulting UnavailIvette Pham Consulting Unavailable Brett Quiroga Consulting Unavailable Brett Quiroga Referring Unavailable Brett Quiroga Attending Unavailable [facility] Primary Care Unavailable Allergies Allergy Classification Reported Allergen(s) Allergy Type Date of Onset Reaction(s) Facility (20 sources) Betamethasone; Translations: [BETAMETHASONE DIPROPIONATE] Drug Allergy 12-21-19 [facility], [facility] Work Phone: (20 sources) Lidocaine; Translations: [LIDOCAINE] Drug Allergy 12-24-19 [facility] Work Phone: (7 sources) Corticosteroids Allergy to substance 01-01-20 [facility] Work Phone: (20 sources) Glucocorticoid Receptor Agonists Allergy to substance 10-16-20 [facility] (20 sources) dapagliflozin; Translations: [DAPAGLIFLOZIN] Drug Allergy 08-05-20 GI Upset [facility] (20 sources) metFORMIN; Translations: [METFORMIN] Drug Allergy 08-05-20 [facility] (1 source) Corticosteroids Drug allergy (disorder) 09-16-20 [facility] (1 source) Lidocaine Drug Allergy 09-16-20 [facility] Medications Current Medications Medication Drug Class(es) Dates Sig (Normalized) Sig (Original) [id number] 200 actuat albuterol 0.09 mg/actuat metered dose [...] oral capsule (1 source) Non-narcotic Antitussive Start: 024 End: take 1 capsule by mouth every eight hours as needed for cough and cough benzonatate (TESSALON PERLES) 100 mg capsule Indications: Acute cough Take 1 capsule by mouth three times a day as needed for up to 15 days. 45 capsule 0 06/11/2024 06/26/2024 Active BIPAP (20 sources) BIPAP Active BIPAP Bipap -Bilevel Positive Airway Pressure ([facility] Informational Use Only) device (2 sources) Start: 07-06-2025 Bipap -Bilevel Positive Airway Pressure ([facility] Informational Use Only) device Active 0 .ROUTE [...] 12/18/2024 Active Cpap - Continuous Positive Airway Pressure([facility] Informational Use Only) device (2 sources) Start: 07-06-2025 Cpap - Continuous Positive Airway Pressure([facility] Informational Use Only) device Active 0 .ROUTE [...] Comment on above: Take 1 tablet by [facility] once daily. FLUoxetine 20 mg oral capsul [...] Comment on above: Take 1 capsule by [facility] once daily for 7 days, THEN 2 capsules once daily. Take 1 capsule by [facility] once daily. gabapentin 300 mg oral [...] 3:46pm Start: 05-22-2017 take 1 capsule by [facility] three times daily GABAPENTIN 300 MG CAPS 1 po tid GABAPENTIN [id number] Jackson Brown Comment on above: Take 2 capsules by [facility] twice daily for 90 days. Take 1 tablet in AM, afternoon and bedtime. If after 2 days symptoms persist, increase to 1 tab in AM, afternoon and 2 tabs at bedtime. Take one po qhs Take 1 capsule by [facility] twice daily for 180 days. Take [...] spray(s) nasa l route twice daily Ipratropium [place] Active 2 SPRAY INTRANASAL TWICE A DAY [...] the CT contrast administration guidelines link. levonorgestrel 0.049800 mg/hr intrauterine system (20 sources) Progestin, Progestin-containing [...] Start: 09-09-2017 JOJO 13.5 MG IUD LEVONORGESTREL [id number] Amparo Hitchcock MD Comment on above: 1 [...] 2021 4:26pm must administer with a meal/food [place]-3 Fatty Acids (Fish Oil Concentrate) 1,000 mg capsule (20 sources) Start: 02-21-2021 take 1 capsule by mouth once daily [place]-3 Fatty Acids (Fish Oil Concentrate) 1,000 mg capsule Active 1000 MG PO DAILY February 21, 2021 9:19am Start: 02-21-2021 End: 10-16-2024 take 1 capsule by mouth once daily [place]-3 Fatty Acids (Fish Oil Concentrate) 1,000 mg capsule Discontinued 1000 mg PO DAILY February 21, 2021 12:00am October 16, 2024 10:15pm supplement Start: 02-21-2021 End: 10-16-2024 take 1 capsule by mouth once daily [place]-3 Fatty Acids (Fish Oil Concentrate) 1,000 mg capsule Discontinued 1000 mg PO DAILY February 21, 2021 12:00am October 16, 2024 10:15pm Start: 02-21-2021 take 1 capsule by mo ut once daily [place]-3 Fatty Acids (Fish Oil Concentrate) 1,000 mg capsule Active 1000 MG PO DAILY February 20, 2021 11:00pm Start: 02-21-2021 take 1 capsule by mo [facility] once daily [place]-3 Fatty Acids (Fish Oil Concentrate) 1,000 mg [...] every 8 hours as needed for nausea/vomiting. Dqiirysv-Ap-Urh-Fe -FA tab (20 sources) Start: 1 take 1 tablet by mouth once daily Qtggwhnu-Oc-Rhh-F e-FA tab Take 1 tablet by mouth once daily. 0 03/14/2011 Active Comment on above: Take 1 tablet by ishmael once daily. gkcflwdg-mfh-Ot-FA 1 mg capsule (20 sources) Start: 0 take 1 capsule by mouth once daily cfdeymvv-koj-Zn-F A 1 mg capsule Active 1 CAP PO DAILY April 26, 2020 10:18am Start: 04-26-2020 End: 08-05-2023 take 1 capsule by mouth once daily twtkdfci-pkf-Ni-FA 1 mg capsule Discontinued 1 CAP PO DAILY April 25, 2020 11:00pm August 05, 2023 10:25am Start: 04-26-2020 End: 08-05-2023 take 1 capsule by mouth once daily ceagliey-kqn-Xq-FA 1 mg capsule Discontinued 1 CAP PO DAILY April 26, 2020 12:00am August 05, 2023 11:25am Start: 04-26-2020 take 1 capsule by mo [facility] once daily tflqqbpc-qme-Lw-FA 1 mg capsule Active 1 CAP PO DAILY April 25, 2020 11:00pm Start: 04-26-2020 take 1 capsule by mo [facility] once daily egknvuaj-cdi-Rt-FA 1 mg capsule Active 1 CAP PO DAILY April 26, 2020 12:00am rimegepant 75 mg disintegrating oral tablet (20 sources) Start: 12-26-2023 End: 09-02-2024 Comment on above: Take 1 tablet by [facility] once daily as needed. 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 TIZANIDINE HCL [id number] Santana IRENE Comment on above: Take 1 tablet by ishmeal th every 8 hours as needed. topiramate [...] Start: 09-09-2017 TROKENDI XR 20 0 MG [id number] TOPIRAMATE [id number] Amparo Hitchcock MD Start: 09-28-2016 End: 09-09-2017 TOPIRAMATE 15 MG CPSP 11/28 TOPIRAMATE [id number] Santana IRENE Comment on above: Take 1 [...] 09-28-2016 End: 09-09-2017 TYLENOL CAPS ACETAMINOPHEN CAPS [id number] Amparo Hitchcock MD Start: 09-28-2016 TYLENOL CAPS 2 ACETAMINOPHEN CAPS [id number] Santana IRENE acetaminophen 325 mg / HYDRO [...] one every 6 hours as needed. HYDROCODONE-ACETAMINOPHEN [id number] Santana IRENE acetaminophen 325 mg / oxyCO [...] on above: Please fit with a Dr rennerwerai under nose FFM. Patient with sore on bridge of nose and difficulties moving in bed with current PAP mask. Modem possibly not w orking. Downloads ceased last month. Please check device. cyclobenzaprine hydrochloride 10 mg oral tablet (2 sources) Muscle Relaxant Start: 025 End: 025 take 1 tablet by mouth every eight [...] End: 09-09-2017 DIFLUNISAL 500 MG TABS DIFLUNISAL [id number] Raghav IRENE 0.5 ml dulaglutide 1.5 mg/ml [...] Start: 09-28-2016 LORAZEPAM 1 MG TABS LORAZEPAM [id number] Santana IRENE Start: 10-27-2013 End: 04-26-2020 Comment on above: One tab one hour bef ore test magnesium oxide 400 mg oral tablet (20 sources) Start: 02-17-2019 End: 04-26-2020 Methylprednisolone (20 sources) Corticosteroid Start: 08-07-2021 End: 09-13-2021 Start: 08-07-2021 End: 09-13-2021 take 1 tablet by mouth once Methylprednisolone [...] both ears once daily for 7 days. [place]-3 Fatty Acids (20 sources) Start: 04-26-2020 End: 08-23-2020 take 500 mg by mouth once daily [place]-3 Fatty Acids Discontinued 500 MG PO DAILY April 26, 2020 10:19am August 23, 2020 10:22am Start: 04-26-2020 End: 08-23-2020 take 500 mg by mouth once daily [place]-3 Fatty Acids Discontinued 500 MG PO DAILY April 25, 2020 11:00pm August 23, 2020 9:22am Start: 04-26-2020 End: 08-23-2020 take 500 mg by mouth once daily [place]-3 Fatty Acids Discontinued 500 MG PO DAILY April 26, 2020 12:00am August 23, 2020 10:22am [place]-3 Fatty Acids (FISH OIL) 500 mg cap (20 sources) Start: 10-09-2019 End: 06-07-2025 take 1 capsule by mouth once daily [place]-3 Fatty Acids (FISH OIL) 500 mg cap Take 1 capsule by mouth once daily. 30 capsule 11 10/09/2019 06/07/2025 Discontinued Start: 10-09-2019 take 1 capsule by mo uth once daily [place]-3 Fatty Acids (FISH OIL) 500 mg cap Take 1 capsule by mouth once daily. 30 capsule 11 10/09/2019 Active Comment on above: Take 1 capsule by mo uth once daily. [place]-3 Fatty Acids 500 mg capsule (16 sources) Start: 0 End: 0 take 1 capsule by mouth once daily [place]3 Fatty Acids 500 mg capsule Discontinued 500 mg PO DAILY April 26, 2020 12:00am August 23, 2020 10:22am omeprazole 20 mg delayed release oral capsule (20 sources) Proton Pump Inhibitor Start: End: Start: 04-26-2020 End: 08-10-2022 Comment on above: Take 1 capsule by mo [facility] daily before breakfast. 1/2 hr before meal. PARoxetine hydrochloride 10 mg oral tablet (20 sources) Serotonin Reuptake Inhibitor Start: End: phenazopyridine hydrochloride 200 mg oral tablet (20 sources) Start: End: phentermine hydrochloride 37.5 mg oral capsule (1 source) Sympathomimetic Amine Anorectic Start: take 1 tablet by mouth once daily ADIPEX-P 37.5 MG CAPS One tablet by mouth daily PHENTERMINE HCL [id number] Amparo Hitchcock MD potassium chloride 20 meq powder for oral solution (20 sources) Start: 025 End: predniSONE 50 mg oral tablet (5 sources) Corticosteroid Start: End: PREDNISONE 50 MG TABS 1 tablet every morning PREDNISONE [id number] Raghav IRENE pregabalin 75 mg oral capsule [...] on pill 3 times per day thereafter Hxoyxpud-Gr-Hdz-Fe-FA ( FORMULA) ORAL Tab (20 sources) Start: 011 take 1 tablet by mouth once daily Icrwmbvg-Io-Xek-Fe- FA ( FORMULA) ORAL Tab Take 1 tablet by mouth once daily. 0 03/14/2011 Active Comment on above: Take 1 tablet by [facility] once daily. Trhwiukx-Lel-Cn-Fa 1 mg capsule (16 sources) Start: End: take 1 capsule by mouth once daily Ervfeubz-Fmo-Wb-Fa 1 mg capsule Discontinued 1 NMA PO [...] Kidney stone; Translations: [Calculus of kidney] Onset: 09-04-2009-04-2022 Episodic Conditions associated with dizziness or vertigo [...] Onset: 03-29-20 Chronic Other aftercare (2 sources) shelter (current) use of insulin; Translations: [Type 2 [...] Onset: 09-04-20 Resolved : 09-04-2008-10-2022 Episodic Other circulatory disease (1 source) Elevated [...] 05-06-20 Resolved : 01-24-20 10 06-24-2017 Chronic Sprains and strains (20 sources) Strain of muscle, fascia and tendon of lower back, subsequent encounter; Translations: [Strain of muscle, fascia and tendon of lower back, initial encounter] Onset: 07-02-20 Resolved : 09-04-2008-06-2017 Episodic Superficial injury; contusion (20 sources) Contusion of knee; Translations: [Contusion of right knee, initial encounter] Onset: 09-04-20 Resolved : 09-04-20 22 11-24-2022 Episodic Syncope (20 sources) Near syncope; Translations: [Syncope and collapse] 03-01-2019 Episodic Unclassified (20 sources) Body mass index 40+ - severely obese; Translations: [Morbid (severe) obesity due to excess calories] Onset: 09-09-20 Resolved : 09-04-20 22 09-09-2017 Chronic Unclassified (2 sources) Chronic pain of left upper limb 01-22-2025 Unclassified (1 source) Obesity, Class III, BMI 40-49.9 (morbid obesity) ([facility]); Translations: [Obesity, Class III, BMI 40-49.9 (morbid obesity) ([facility])] Onset: 01-03-20 Unclassified (1 source) Low back pain, unspecified; Translations: [Low back pain, unspecified] Onset: 03-22-20 Urinary tract infections (20 sources) Urinary tract infectious disease; Translations: [Urinary tract infection, site not specified] Onset: 07-07-20 25 08-10-2022 Episodic Viral infection (20 sources) Viral disease; Translations: [Viral infection, unspecified] Onset: 09-04-20 Resolved : 09-04-20 22 07-12-2020 Episodic Past or Other Problems Problem Classification Problem Date Documented Date Episodic/Chronic Abdominal pain (20 sources) Left sided abdominal pain; Translations: [Unspecified abdominal pain] Onset: 5 03-02-2019 Episodic Allergic reactions (20 sources) Contact dermatitis; Translations: [Unspecified contact dermatitis, unspecified cause] Onset: 7 Resolved: 0 01-23-2010 Episodic Chronic obstructive pulmonary disease and bronchiectasis (3 sources) Bronchitis; Translations: [Bronchitis, not specified as acute or chronic] Onset: 5 07-03-2024 Episodic Contraceptive and procreative management (20 sources) IUD contraception; Translations: [Presence of (intrauterine) contraceptive device] Onset: 7 09-09-2017 Episodic Hypertension complicating ; childbirth and the puerperium (20 sources) Transient hypertension of ; Translations: [Gestational [-induced] hypertension without significant proteinuria, unspecified trimester] Onset: 6 Resolved: 6 07-02-2006 Episodic Other and unspecified benign neoplasm (20 sources) Benign neoplasm of skin of upper limb; Translations: [Other benign neoplasm of skin of unspecified upper limb, including shoulder] Onset: 7 Resolved: 0 01-23-2010 Episodic Other bone disease and musculoskeletal deformities (20 sources) Segmental and somatic dysfunction of cervical region; Translations: [Nonallopathic lesions, cervical region] Onset: 5 Episodic Other bone disease and musculoskeletal deformities (20 sources) Segmental and somatic dysfunction of lumbar region; Translations: [Nonallopathic lesions, lumbar region] Onset: 5 Episodic Other bone disease and musculoskeletal deformities (20 sources) Segmental and somatic dysfunction of pelvic region; Translations: [Nonallopathic lesions, pelvic region] Onset: 5 Episodic Other bone disease and musculoskeletal deformities (20 sources) Segmental and somatic dysfunction of thoracic region; Translations: [Nonallopathic lesions, thoracic region] Onset: 5 Episodic Other congenital anomalies (20 sources) Congenital anomaly of skin; Translations: [Other specified congenital malformations of skin] Onset: 7 Resolved: 0 01-23-2010 Chronic Other connective tissue disease (20 sources) Adhesive capsulitis of left shoulder; Translations: [Adhesive capsulitis of left shoulder] Onset: 3 Episodic Other connective tissue disease (1 source) [...] head, initial encounter] Onset: 5 Episodic Other non-traumatic joint disorders (20 sources) Shoulder pain; Translations: [Pain in left shoulder] Onset: 2 Resolved: 4 09-04-2022 Episodic Other non-traumatic joint disorders (20 sources) Chronic pain of left upper limb; Translations: [Pain in left shoulder] Onset: 3 Episodic Other nutritional; endocrine; and metabolic disorders (20 sources) Morbid obesity; Translations: [Morbid (severe) obesity due to excess calories] Onset: 0 Resolved: 5 02-16-2010 Chronic Other nutritional; endocrine; and metabolic [...] abnormalities] Onset: 7 Resolved: 0 01-23-2010 Episodic Spondylosis; intervertebral disc disorders; other back problems (20 sources) Low back pain; Translations: [Backache] Onset: 7 Resolved: 2 04-26-2017 Episodic Unclassified (20 sources) Left upper quadrant abdominal pain 08-10-2022 Unclassified (20 sources) History of stent into kidney 05-30-2022 Comment on above: 2018 Unclassified (2 sources) Patient encounter status 12-12-2024 Results Test Name Value Interpretation Reference Range Facility Bedside Glucoseon 09-16-2025 FINGERSTICK GLU 185 mg/dL High 74-106 [facility] Comment on above: Result Comment: [place] OF PATIENT CARE PER NURSING PROTOCOL Performed By: #### L 501.080 ####[facility] [address] [place], [place], [address] Discharge Instructionon 09-04 Discharge Instruction Normal [facility] MR/POSTOP.ANEon 09-16-2025 MR/POSTOP.ANE Normal [facility] MR/SLTSUHYG6uo 09-16-2025 MR/POSTOPAN2 Normal [facility] Operative Reporton Operative Report Normal [facility] ,Urineon 09-16-2025 Beta HCG ( test) Ql (U) Negative [facility] Comment on above: Result Comment: Very dilute urine specimens, as indicated by a low specificgravity, may not contain customer service representative levels of hCG.If is still suspected, a first morning urinespecimen should be collected 48 hours later and tested. Performed By: #### L 400.7600 ####[facility] [address] [place], [place], [address] MR/PAT.ANEon 09-10-2025 MR/PAT.ANE Normal [facility] Office Visit Reporton 2024 Office Visit Report Normal [facility] Cardiology Visit Reporton Cardiology Visit Report Normal [facility] Pulmonary Visit Reporton Pulmonary Visit Report Normal [facility] ---- TORI GRAY ([id number]) 1980 F Date Time Provider Department 08/27/25 IVETTE GRIMES During your visit today, we recorded the following information about you: Rukhsana Wood 08/27/2025 2:32 PM Signed Tori is calling Ivette Grimes MD today to request a prior authorization on her Ozempic, per pharmacy, [facility] Please call patient with approval/denial when received Patient has been identified by name and birthdate. Person calling: self Call patient at: on cell [phone] (cell) Was an appointment scheduled: No Closing statement: Prior Authorization Calls: Thank you for calling [facility], your call will be returned within the next 24 hours or next business day. Rukhsana Argueta [facility] Evon Philippe LPN 08/30/2025 12:43 PM Signed Unable to complete this electronically. Will have to via covermymeds. Evon Philippe LPN 08/30/2025 2:35 PM Signed Unable to complete also on covermymeds. PA form completed. Evon Philippe LPN 08/30/2025 2:38 PM Signed PA form signed and records faxed back. Evon Philippe LPN 09/06/2025 11:08 AM Signed Rec'd call from [employer]. PA form printed and completed for them. Evon Philippe LPN 09/06/2025 2:53 PM Signed REVIEW ASSISTANT signed. All has been faxed. Allergies As of Date: 08/27/2025 Noted Allergy Reaction FARXIGA (DAPAGLIFLOZIN) 08/05/2024 8 - GI Upset LIDOCAINE 12/24/2019 4 - Hives METFORMIN 08/05/2024 8 - GI Upset STEROIDS (BETAMETHASONE DIPROPION* 2 4 - Hives Date Reviewed: 08/04/2025 Reviewed by: Fatuma Beckford PA-C - Fully Assessed Reason for Visit: Insurance Authorization [[id number]] Prescriptions as of 09/08/2025 - semaglutide (OZEMPIC) [...] tablet by mouth once daily. - Ipratropium Hadley (ATROVENT) 21 mcg (0.03 %) nasal spray [...] DM - Controlled E11.9 Insulin: No - Vdpfkety-Ks-Gdg-Fe- FA tab Take 1 tablet by mouth [...] 05/06/2009 01/23/2010 Routine general medical examination at [facility]*01/23/2010 12/06/2012 Class: Chronic Routine gynecological examination [Z01.419] 01/23/2010 02/22/2014 Class: Chronic Morbid obesity (HCC) [E66.01] 01/23/2010 06/07/2025 Lumbar Disc Disorder [M51.9] 02/16/2010 Routine general medical examination at [facility]*12/06/2012 02/22/2014 Anxiety [F41 (more content not included)... Normal [facility] MR/BMS.Maite 08-27-2025 MR/BMS.LISA [facility] 08-13-2025 [facility] TORI GRAY ([id number]) 1980 F Date Time Provider Department 08/13/25 IVETTE GRIMES [facility] During your visit today, we recorded the following information about you: Nirmala Storey LPN 08/13/2025 8:55 AM Signed Urine culture scanned in today. Scan on 08/13/2025 7:34 AM by Provider, External, PA-C: Microbiology Ivette Grimes MD 08/13/2025 9:58 AM Signed Culture is positive for uti. The macrobid she was given should cover it. Nirmala Storey LPN 08/13/2025 10:53 AM Signed Thomas Golft message sent to patient. Allergies As of [...] tablet by mouth once daily. - Ipratropium Hadley (ATROVENT) 21 mcg (0.03 %) nasal spray [...] DM - Controlled E11.9 Insulin: No - Ustfwylj-Zd-Fql-Fe- FA tab Take 1 tablet by mouth once daily. Meds Comments as of 03/01/2019: Percocet March 01, 2019 Stephanie Suresh RN Problem List As Of Date 08/13/2025 [...] general medical examination at a [facility]*01/23/2010 12/06/2012 Class: Chronic Routine gynecological examination [Z01.419] 01/23/2010 02/22/2014 Class: Chronic Morbid obesity (HCC) [E66.01] 01/23/2010 06/07/2025 Lumbar Disc Disorder [M51.9] 02/16/2010 Routine general medical examination at [facility]*12/06/2012 02/22/2014 Anxiety [F41.9] 06/07/2014 Type 2 [...] lumbar interverteb (more content not included)... Normal [facility] Urine Cultureon 08-13-2025 URC Normal [facility] Comment on above: Performed By: #### L 400.0001, L100.0100, L501.9985, M100.2200 ####[facility] [address] [place], [place], [id number] CBC W/Diff, Automatedon 10-0 Absolute Lymph 3.56 X10 3/uL Normal 0.83-4.51 [facility] Comment on above: Performed By: #### L 400.0001, L100.0100, L501.9985, M100.2200 ####[facility] [address] [place], [address] Absolute Neut 5.6 X10 3/uL Normal 2.0-7.7 [facility] Comment on above: Performed By: #### L 400.0001, L100.0100, L501.9985, M100.2200 ####[facility] [address] [place], [address] Basophils/100 WBC (Bld) 0.8 % Normal 0-1 [facility] Comment on above: Performed By: #### L 400.0001, L100.0100, L501.9985, M100.2200 ####[facility] [address] [place], [address] Eosinophils/100 WBC (Bld) 1.7 % Normal 0-5 [facility] Comment on above: Performed By: #### L 400.0001, L100.0100, L501.9985, M100.2200 ####[facility] [address] [place], [address] Erythrocyte distribution width (RBC) [Ratio] 13.7 % Normal 11.6-14.6 [facility] Comment on above: Performed By: #### L 400.0001, L100.0100, L501.9985, M100.2200 ####[facility] [address] [place], [address] Hematocrit (Bld) [Volume fraction] 39.7 % Normal 37-47 [facility] Comment on above: Performed By: #### L 400.0001, L100.0100, L501.9985, M100.2200 ####[facility] [address] [place], [address] Hemoglobin (Bld) [Mass/Vol] 13.3 g/dL Normal 12.0-15.0 [facility] Comment on above: Performed By: #### L 400.0001, L100.0100, L501.9985, M100.2200 ####[facility] [address] [place], [address] IG% 1.300 High 0.0-0.9 [facility] Comment on above: Result Comment: IG% - Immature Granulocytes (promyelocytes, myelocytes andmetamyelocytes) > 1% indicates that a LEFT SHIFT is Present. Performed By: #### L 400.0001, L100.0100, L501.9985, M100.2200 ####[facility] [address] [place], [address] Lymphocytes/100 WBC (Bld) 35.6 % Normal 19-41 [facility] Comment on above: Performed By: #### L 400.0001, L100.0100, L501.9985, M100.2200 ####[facility] [address] [place], [address] MCH (RBC) [Entitic mass] 30.7 pg Normal 27.0-32.0 [facility] Comment on above: Performed By: #### L 400.0001, L100.0100, L501.9985, M100.2200 ####[facility] [address] [place], [address] MCHC (RBC) [Mass/Vol] 33.5 g/dL Normal 32-36 [facility] Comment on above: Performed By: #### L 400.0001, L100.0100, L501.9985, M100.2200 ####[facility] [address] [place], [address] MCV (RBC) [Entitic vol] 91.7 fL Normal 81-99 [facility] Comment on above: Performed By: #### L 400.0001, L100.0100, L501.9985, M100.2200 ####[facility] [address] [place], [address] Monocytes/100 WBC (Bld) 4.8 % Normal 0-10 [facility] Comment on above: Performed By: #### L 400.0001, L100.0100, L501.9985, M100.2200 ####[facility] [address] [place], [address] Neutrophils/100 WBC (Bld) 55.8 % Normal 47-70 [facility] Comment on above: Performed By: #### L 400.0001, L100.0100, L501.9985, M100.2200 ####[facility] [address] [place], [address] Nucleated RBC (Bld) [#/Vol] 0 10*3/uL Normal 0-5 [facility] Comment on above: Performed By: #### L 400.0001, L100.0100, L501.9985, M100.2200 ####[facility] [address] [place], [address] Platelet mean volume (Bld) [Entitic vol] 9.3 fL Normal 6.2-12.0 [facility] Comment on above: Performed By: #### L 400.0001, L100.0100, L501.9985, M100.2200 ####[facility] [address] [place], [address] Platelets (Bld) [#/Vol] 219 10*3/uL Normal 150-450 [facility] Comment on above: Performed By: #### L 400.0001, L100.0100, L501.9985, M100.2200 ####[facility] [address] [place], [address] RBC (Bld) [#/Vol] 4.33 10*6/uL Normal 4.2-5.4 [facility] Comment on above: Performed By: #### L 400.0001, L100.0100, L501.9985, M100.2200 ####[facility] [address] [place], [address] RDW SD 46.5 fl High 35.1-43.9 [facility] Comment on above: Performed By: #### L 400.0001, L100.0100, L501.9985, M100.2200 ####[facility] [address] [place], [address] WBC (Bld) [#/Vol] 10.0 10*3/uL Normal 4.4-11.0 [facility] Comment on above: Performed By: #### L 400.0001, L100.0100, L501.9985, M100.2200 ####[facility] [address] [place], [address] C[facility]Non [facility] ---- TORI GRAY ([id number]) 1980 F Date Time Provider Department 08/11/25 [facility] During your visit today, we recorded the following information about you: Annel Bundy, PEPE 08/11/2025 12:45 PM Signed Patient calls as she forgot to mention to provider with last visit that the kidney stone she has grew from 4 mm to 10 mm. Patient thought that might be of importance as she is able to see some of her results of labs and urine completed at [facility] and she feels that she is [...] Signed Did she have ct done at [facility]. If so, can we get it. Annel Bundy RN 08/11/2025 1:[address] was completed at [facility] at last hospital visit. I am not able to pull records. Messaged providers nurse to see if they are able to. PEPE Linares Tara, LPN 08/11/2025 1:[address] on desk for review. Labs are now also scanned into chart that provider has ordered. vIette Grimes MD 08/11/2025 3:14 PM Signed I [...] [N13.30] Order(s):CONSULT TO UROLOGY [9041] Order #: [id number]: 1 FUTURE nitrofurantoin monohydrate and macrocrystal (MACROBID) [...] tablet by mouth once daily. - Ipratropium Hadley (ATROVENT) 21 mcg (0.03 %) nasal spray [...] DM - Controlled E11.9 Insulin: No - Gsrpqqim-Ed-Wjl-Fe- FA tab Take 1 tablet by mouth once daily. Meds Comments as of 03/01/2019: Percocet March 01, 2019 Stephanie Suresh RN Problem List As Of Date 08/11/2025 (more content not included)... Normal [facility] Hemoglobin A1con 08-11-2025 HbA1c (Bld) [Mass fraction] 6.8 % High <=5.6 [facility] Comment on above: Result Comment: Norm al < 5.7 % Prediabetic 5.7 - 6.4 % Diabetic >or= 6.5 % Please note range changes. Performed By: #### L 400.0001, L100.0100, L501.9985, M100.2200 ####[facility] [address] [place], [address] Urinalysis, Completeon 08-11 RBC 0-5 SEEN Normal 0-5 [facility] Comment on above: Order Comment: Urine , Random Performed By: #### L 400.0001, L100.0100, L501.9985, M100.2200 ####[facility] [address] [place], [address] BACTERIA 2+ /hpf Normal None Seen [facility] Comment on above: Order Comment: Urine , Random Performed By: #### L 400.0001, L100.0100, L501.9985, M100.2200 ####[facility] [address] [place], [address] EPI,SQUAMOUS 10-25 SEEN Normal 5-10 [facility] Comment on above: Order Comment: Urine , Random Performed By: #### L 400.0001, L100.0100, L501.9985, M100.2200 ####[facility] [address] [place], [address] WBC 10-25 SEEN Normal 0-5 [facility] Comment on above: Order Comment: Urine , Random Performed By: #### L 400.0001, L100.0100, L501.9985, M100.2200 ####[facility] [address] [place], [address] Mucus Ql (Urine sed) 0 SEEN Normal [facility] Comment on above: Order Comment: Urine , Random Performed By: #### L 400.0001, L100.0100, L501.9985, M100.2200 ####[facility] [address] [place], [address] CNPNon 08-09-2025 [facility] Telephone ([facility]) ---- TORI RGAY ([id number]) 1980 F Date Time Provider Department 08/09/25 IVETTE GRIMES [facility] During your visit today, we recorded the following information about you: Priscila France RN 08/09/2025 8:27 AM Signed Pt called in requesting to have her labs faxed over [facility]. Faxed to the lab at # [phone]. Priscila France RN Allergies As of Date: [...] tablet by mouth once daily. - Ipratropium Hadley (ATROVENT) 21 mcg (0.03 %) nasal spray [...] DM - Controlled E11.9 Insulin: No - Jltwhlku-Bx-Maz-Fe- FA tab Take 1 tablet by mouth [...] 05/06/2009 01/23/2010 Routine general medical examination at [facility]*01/23/2010 12/06/2012 Class: Chronic Routine gynecological examination [Z01.419] 01/23/2010 02/22/2014 Class: Chronic Morbid obesity (HCC) [E66.01] 01/23/2010 06/07/2025 Lumbar Disc Disorder [M51.9] 02/16/2010 Routine general medical examination at [facility]*12/06/2012 02/22/2014 Anxiety [F41.9] 06/07/2014 Type 2 [...] 09/04/2022 09/04/2022 (more content not included)... Normal [facility] Orthopedic Visit Reporton Orthopedic Visit Report Normal [facility] CNOVon 08-04-2025 CNOV Office Visit (NEMOWS) ---- TORI [id number]) 1980 F Date Time Provider Department 08/04/25 4:30 PM FATUMA BECKFROD During your visit today, we recorded the [...] for migraine Informed Consent Consent Obtained: Written [place] Protocol A moment to CARE was completed [...] collected. 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 Elizsharifbeth marquez did help in the summer. Then [...] Modules accepted: Orders Referring Provider: AMANDA ARTEAGA [[id number]] Allergies As of Date: 08/04/2025 Noted Allergy [...] 5 day (more content not included)... Normal [facility] ---- TORI GRAY ([id number]) 1980 F Date Time Provider Department 07/29/25 IVETTE GRIMES [facility] During your visit today, we recorded the following information about you: Little Murphy MA 07/29/2025 5:36 PM Signed Ivette Grimes MD P [facility] Send over order for ua and C and S to be done now and blood work to be done in 8 weeks to [facility]. Thanks. Little Rodriguez MA 07/29/2025 5:36 PM Signed Orders faxed to [facility] Allergies As of Date: 07/29/2025 Noted [...] tablet by mouth once daily. - Ipratropium Hadley (ATROVENT) 21 mcg (0.03 %) nasal spray [...] DM - Controlled E11.9 Insulin: No - Gwicfmct-Ar-Ngl-Fe- FA tab Take 1 tablet by mouth [...] general medical examination at a [facility]*01/23/2010 12/06/2012 Class: Chronic Routine gynecological examination [Z01.419] 01/23/2010 02/22/2014 Class: Chronic Morbid obesity (HCC) [E66.01] 01/23/2010 06/07/2025 Lumbar Disc Disorder [M51.9] 02/16/2010 Routine general medical examination at a [facility]*12/06/2012 02/22/2014 Anxiety [F41.9] 06/07/2014 Type [...] 09/04/2022 09/04/2022 (more content not included)... Normal [facility] Absolute lymphocyte countOrd ered By: Ivette Grimes on 07-23-2025 Lymphocytes Auto (Unsp spec) [#/Vol] 2.44 10*3/uL 0.83-4.51 [facility] Anion gap in Serum or Plasma Ordered By: Ivette Grimes on 07-23-2025 Anion gap [Moles/Vol] 14 mmol/L 5- [facility] Automated lymphocyte count a s percentage of total leukocytesOrdered By: Ivette Grimes on 07-23-2025 Lymphocytes/100 WBC Auto (Unsp spec) 29.6 % - [facility] BUN/creatinine ratioOrdered By: Ivette Grimes on 07-23-2025 Urea nitrogen/Creatinine [Mass ratio] 14.1 mg/mg 10- [facility] Basic Metabolic Profile (BMP )on 07-23-2025 BUN/CRE 14.1 RATIO Normal - [facility] Comment on above: Performed By: #### L 503.6030, L100.0100, L503.6550, L500.2500, L503.0106, L506.0200 ####[facility] [address] [place], [address] Calcium [Mass/Vol] 8.9 mg/dL Normal 7.6-11.0 [facility] Comment on above: Performed By: #### L 503.6030, L100.0100, L503.6550, L500.2500, L503.0106, L506.0200 ####[facility] [address] [place], [address] Chloride [Moles/Vol] 104 mmol/L Normal 98-108 [facility] Comment on above: Performed By: #### L 503.6030, L100.0100, L503.6550, L500.2500, L503.0106, L506.0200 ####[facility] [address] [place], [address] CO2 [Moles/Vol] 18.9 mmol/L Low 21.0-32.0 [facility] Comment on above: Performed By: #### L 503.6030, L100.0100, L503.6550, L500.2500, L503.0106, L506.0200 ####[facility] [address] [place], [address] Creatinine [Mass/Vol] 0.89 mg/dL Normal 0.70-1.20 [facility] Comment on above: Performed By: #### L 503.6030, L100.0100, L503.6550, L500.2500, L503.0106, L506.0200 ####[facility] [address] [place], [address] GAP 14 Normal 5-15 [facility] Comment on above: Performed By: #### L 503.6030, L100.0100, L503.6550, L500.2500, L503.0106, L506.0200 ####[facility] [address], [address] GFR/1.73 sq M.predicted among non-blacks MDRD (S/P/Bld) [Vol rate/Area] 82 mL/min/{1.73_m2} Normal >60 [facility] Comment on above: Result Comment: mL/m in/1.73m2 CKD-EPI Creatinine Equation (2020) Performed By: #### L 503.6030, L100.0100, L503.6550, L500.2500, L503.0106, L506.0200 ####[facility] [address] [place], [address] Glucose [Mass/Vol] 145 mg/dL High 70-99 [facility] Comment on above: Performed By: #### L 503.6030, L100.0100, L503.6550, L500.2500, L503.0106, L506.0200 ####[facility] [address] [place], [address] Potassium [Moles/Vol] 3.9 mmol/L Normal 3.3-5.1 [facility] Comment on above: Performed By: #### L 503.6030, L100.0100, L503.6550, L500.2500, L503.0106, L506.0200 ####[facility] [address] [place], [address] Sodium [Moles/Vol] 137 mmol/L Normal 133-145 [facility] Comment on above: Performed By: #### L 503.6030, L100.0100, L503.6550, L500.2500, L503.0106, L506.0200 ####[facility] [address] [place], [address] Urea nitrogen [Mass/Vol] 13 mg/dL Normal 4-19 [facility] Comment on above: Performed By: #### L 503.6030, L100.0100, L503.6550, L500.2500, L503.0106, L506.0200 ####[facility] [address] [place], [address] Basophil percentageOrdered B y: Ivette Grimes on 07-23-2024 Basophils/100 WBC (Bld) 0.8 % 0-1 [facility] CBC W/Diff, Automatedon 07-05 Absolute Lymph 2.44 X10 3/uL Normal 0.83-4.51 [facility] Comment on above: Performed By: #### L 503.6030, L100.0100, L503.6550, L500.2500, L503.0106, L506.0200 ####[facility] [address] [place], [address] Absolute Neut 5.1 X10 3/uL Normal 2.0-7.7 [facility] Comment on above: Performed By: #### L 503.6030, L100.0100, L503.6550, L500.2500, L503.0106, L506.0200 ####[facility] [address] [place], [address] Basophils/100 WBC (Bld) 0.8 % Normal 0-1 [facility] Comment on above: Performed By: #### L 503.6030, L100.0100, L503.6550, L500.2500, L503.0106, L506.0200 ####[facility] [address] [place], [address] Eosinophils/100 WBC (Bld) 1.5 % Normal 0-5 [facility] Comment on above: Performed By: #### L 503.6030, L100.0100, L503.6550, L500.2500, L503.0106, L506.0200 ####[facility] [address] [place], [address] Erythrocyte distribution width (RBC) [Ratio] 13.2 % Normal 11.6-14.6 [facility] Comment on above: Performed By: #### L 503.6030, L100.0100, L503.6550, L500.2500, L503.0106, L506.0200 ####[facility] [address] [place], [address] Hematocrit (Bld) [Volume fraction] 38.1 % Normal 37-47 [facility] Comment on above: Performed By: #### L 503.6030, L100.0100, L503.6550, L500.2500, L503.0106, L506.0200 ####[facility] [address] [place], [address] Hemoglobin (Bld) [Mass/Vol] 12.7 g/dL Normal 12.0-15.0 [facility] Comment on above: Performed By: #### L 503.6030, L100.0100, L503.6550, L500.2500, L503.0106, L506.0200 ####[facility] [address] [place], [address] IG% 1.100 High 0.0-0.9 [facility] Comment on above: Result Comment: IG% - Immature Granulocytes (promyelocytes, myelocytes andmetamyelocytes) > 1% indicates that a LEFT SHIFT is Present. Performed By: #### L 503.6030, L100.0100, L503.6550, L500.2500, L503.0106, L506.0200 ####[facility] [address] [place], [address] Lymphocytes/100 WBC (Bld) 29.6 % Normal 19-41 [facility] Comment on above: Performed By: #### L 503.6030, L100.0100, L503.6550, L500.2500, L503.0106, L506.0200 ####[facility] [address] [place], [address] MCH (RBC) [Entitic mass] 31.5 pg Normal 27.0-32.0 [facility] Comment on above: Performed By: #### L 503.6030, L100.0100, L503.6550, L500.2500, L503.0106, L506.0200 ####[facility] [address] [place], [address] MCHC (RBC) [Mass/Vol] 33.3 g/dL Normal 32-36 [facility] Comment on above: Performed By: #### L 503.6030, L100.0100, L503.6550, L500.2500, L503.0106, L506.0200 ####[facility] [address] [place], [address] MCV (RBC) [Entitic vol] 94.5 fL Normal 81-99 [facility] Comment on above: Performed By: #### L 503.6030, L100.0100, L503.6550, L500.2500, L503.0106, L506.0200 ####[facility] [address] [place], [address] Monocytes/100 WBC (Bld) 5.0 % Normal 0-10 [facility] Comment on above: Performed By: #### L 503.6030, L100.0100, L503.6550, L500.2500, L503.0106, L506.0200 ####[facility] [address] [place], [address] Neutrophils/100 WBC (Bld) 62.0 % Normal 47-70 [facility] Comment on above: Performed By: #### L 503.6030, L100.0100, L503.6550, L500.2500, L503.0106, L506.0200 ####[facility] [address] [place], [address] Nucleated RBC (Bld) [#/Vol] 0 10*3/uL Normal 0-5 [facility] Comment on above: Performed By: #### L 503.6030, L100.0100, L503.6550, L500.2500, L503.0106, L506.0200 ####[facility] [address] [place], [address] Platelet mean volume (Bld) [Entitic vol] 9.3 fL Normal 6.2-12.0 [facility] Comment on above: Performed By: #### L 503.6030, L100.0100, L503.6550, L500.2500, L503.0106, L506.0200 ####[facility] [address] [place], [address] Platelets (Bld) [#/Vol] 240 10*3/uL Normal 150-450 [facility] Comment on above: Performed By: #### L 503.6030, L100.0100, L503.6550, L500.2500, L503.0106, L506.0200 ####[facility] [address] [place], [address] RBC (Bld) [#/Vol] 4.03 10*6/uL Low 4.2-5.4 [facility] Comment on above: Performed By: #### L 503.6030, L100.0100, L503.6550, L500.2500, L503.0106, L506.0200 ####[facility] [address] [place], [address] RDW SD 45.7 fl High 35.1-43.9 [facility] Comment on above: Performed By: #### L 503.6030, L100.0100, L503.6550, L500.2500, L503.0106, L506.0200 ####[facility] [address] [place], [address] WBC (Bld) [#/Vol] 8.3 10*3/uL Normal 4.4-11.0 [facility] Comment on above: Performed By: #### L 503.6030, L100.0100, L503.6550, L500.2500, L503.0106, L506.0200 ####[facility] [address] [place], [place], [id number] Carbon dioxide, total [Moles /volume] in Central venous bloodOrdered By: Ivette Grimes on 07-23-2025 CO2 [Moles/Vol] 18.9 mmol/L Low 21.0-32.0 [facility] Chloride assayOrdered By: Regina Grimes on 07-23-2025 Chloride [Moles/Vol] 104 mmol/L 98-108 [facility] Eosinophil percentageOrdered By: Ivette Grimes on 07-23-2025 Eosinophils/100 WBC (Bld) 1.5 % 0-5 [facility] Erythrocyte distribution wid th ratioOrdered By: Ivette Grimes on 07-23-2025 Erythrocyte distribution width (RBC) [Ratio] 13.2 % 11.6-14.6 [facility] Erythrocyte distribution wid th standard deviationOrdered By: Ievtte Grimes on 07-23-2025 Erythrocyte distribution width (RBC) [Ratio] 45.7 fl High 35.1-43.9 [facility] Ferritinon 07-23-2025 Ferritin [Mass/Vol] 291 ng/mL Normal 22-378 [facility] Comment on above: Performed By: #### L 503.6030, L100.0100, L503.6550, L500.2500, L503.0106, L506.0200 ####[facility] [address] [place], [address] Folate [Mass/volume] in Seru m or PlasmaOrdered By: Ivette Grimes on 07-23-2025 Folate [Mass/Vol] 12.60 ng/mL 4.60-34.80 [facility] Folates,Serum (Folic Acid)on 07-23-2025 FOLATES,SERUM 12.60 ng/mL Normal 4.60-34.80 [facility] Comment on above: Order Comment: N Performed By: #### L 503.6030, L100.0100, L503.6550, L500.2500, L503.0106, L506.0200 ####[facility] [address] [place], [address] Glomerular filtration rate ( GFR) estimation/1.73 sq m using serum, plasma, or whole bOrdered By: Ivette Grimes on 07-23-2025 GFR/1.73 sq M.predicted among non-blacks MDRD (S/P/Bld) [Vol rate/Area] 82 mL/min/{1.73_m2} >60 [facility] Hematocrit Auto (Bld) [Volum e fraction]Ordered By: Ivette Grimes on 07-23-2025 Hematocrit (Bld) [Volume fraction] 38.1 % 37-47 [facility] Hemoglobin measurementOrdere d By: Ivette Grimes on 07-23-2025 Hemoglobin (Bld) [Mass/Vol] 12.7 g/dL 12.0-15.0 [facility] Immature granulocytes/100 WB C Auto (Bld)Ordered By: Ivette Grimes on 07-23-2025 Immature granulocytes/100 WBC (Bld) 1.100 % High 0.0-0.9 [facility] Iron measurement (mass/mass) Ordered By: Ivette Grimes on 07-23-2025 Iron (Unsp spec) [Mass/Mass] 70 ug/dL 50-170 [facility] Iron+Iron Binding Capacityon 07-23-2025 Iron [Mass/Vol] 70 ug/dL Normal 50-170 [facility] Comment on above: Performed By: #### L 503.6030, L100.0100, L503.6550, L500.2500, L503.0106, L506.0200 ####[facility] [address] [place], [address] IRON SATURATION 26.7 Normal 13-59 [facility] Comment on above: Performed By: #### L 503.6030, L100.0100, L503.6550, L500.2500, L503.0106, L506.0200 ####[facility] [address] [place], [address] TIBC 261 ug/dL Normal 250-450 [facility] Comment on above: Performed By: #### L 503.6030, L100.0100, L503.6550, L500.2500, L503.0106, L506.0200 ####[facility] [address] [place], [address] UIBC 191 ug/dL Low 228-428 [facility] Comment on above: Performed By: #### L 503.6030, L100.0100, L503.6550, L500.2500, L503.0106, L506.0200 ####[facility] [address] [place], [address] MCV (mean corpuscular volume ) determinationOrdered By: Ivette Grimes on 07-23-2025 MCV (RBC) [Entitic vol] 94.5 fL 81-99 [facility] Mean corpuscular hemoglobin (MCH) determinationOrdered By: Ivette Grimes on 07-23-2025 MCH (RBC) [Entitic mass] 31.5 pg 27.0-32.0 [facility] Monocyte percentageOrdered B y: Ivette Grimes on 07-23-2025 Monocytes/100 WBC (Bld) 5.0 % 0-10 [facility] Neutrophil percentageOrdered By: Ivette Grimes on 07-23-2025 Neutrophils/100 WBC (Bld) 62.0 % 47-70 [facility] No Panel InformationOrdered By: Ivette Grimes on 07-23-2025 191 ug/dL Low 228-428 [facility] Platelet countOrdered By: Regina muna Sydney on 07-23-2025 Platelets (Bld) [#/Vol] 240 10*3/uL 150-450 [facility] Potassium measurement (mass/ volume)Ordered By: Ivette Grimes on 07-23-2025 Potassium (Unsp spec) [Mass/Vol] 3.9 mmol/L 3.3-5.1 [facility] RBC Auto (Bld) [#/Vol]Ordere d By: Ivette Grimes on 07-23-2025 RBC (Bld) [#/Vol] 4.03 10*6/uL Low 4.2-5.4 [facility] Serum creatinine measurement (mass/volume)Ordered By: Ivette Grimes on 07-23-2025 Creatinine [Mass/Vol] 0.89 mg/dL 0.70-1.20 [facility] Serum glucose measurement (m ass/volume)Ordered By: Ivette Grimes on 07-23-2025 Glucose [Mass/Vol] 145 mg/dL High 70-99 [facility] Serum or plasma calcium sharron urement (mass/volume)Ordered By: Ivette Grimes on 07-23-2025 Calcium [Mass/Vol] 8.9 mg/dL 7.6-11.0 [facility] Serum or plasma ferritin jacob surement (mass/volume)Ordered By: Ivette Grimes on 07-23-2025 Ferritin [Mass/Vol] 291 ng/mL 22-378 [facility] Serum or plasma iron saturat ion measurement (mass fraction)Ordered By: Ivette Grimes on 07-23-2025 Iron saturation [Mass fraction] 26.7 % 13-59 [facility] Serum or plasma urea nitroge n measurement (mass/volume)Ordered By: Ivette Grimes on 07-23-2025 Urea nitrogen [Mass/Vol] 13 mg/dL 4-19 [facility] Sodium levelOrdered By: Reji Grimes on 07-23-2025 Sodium [Moles/Vol] 137 mmol/L 133-145 [facility] Vitamin B12on 07-23-2025 Cobalamin (Vitamin B12) [Mass/Vol] 679 pg/mL Normal 180-914 [facility] Comment on above: Performed By: #### L 503.6030, L100.0100, L503.6550, L500.2500, L503.0106, L506.0200 ####[facility] [address] [place], [address] Vitamin B12 ser/plasOrdered By: Ivette Girmes on 07-23-2025 Cobalamin (Vitamin B12) [Mass/Vol] 679 pg/mL 180-914 [facility] White blood cell (WBC) count Ordered By: Ivette Grimes on 07-23-2025 WBC (Bld) [#/Vol] 8.3 10*3/uL 4.4-11.0 [facility] CNPNon 07-22-2025 [facility] Telephone ([facility]) ---- TORI GRAY ([id number]) 1980 F Date Time Provider Department 07/22/[facility] During your visit today, we recorded the following information about you: Priscila France RN 07/22/2025 3:53 PM Signed Pt called in and asked to have the labs the provider ordered today faxed over to [facility]. Faxed labs to # [phone]. Priscila France RN Allergies As of Date: [...] tablet by mouth once daily. - Ipratropium Hadley (ATROVENT) 21 mcg (0.03 %) nasal spray [...] DM - Controlled E11.9 Insulin: No - Dymkytel-Mc-Mgo-Fe- FA tab Take 1 tablet by mouth [...] 05/06/2009 01/23/2010 Routine general medical examination at [facility]*01/23/2010 12/06/2012 Class: Chronic Routine gynecological examination [Z01.419] 01/23/2010 02/22/2014 Class: Chronic Morbid obesity (HCC) [E66.01] 01/23/2010 06/07/2025 Lumbar Disc Disorder [M51.9] 02/16/2010 Routine general medical examination at [facility]*12/06/2012 02/22/2014 Anxiety [F41.9] 06/07/2014 Type 2 [...] R19.7] 11/22/2021 (more content not included)... Normal [facility] CNPN Telephone (FAMWS) ---- TORI GRAY ([id number]) 1980 F Date Time Provider Department 07/22/25 IVETTE GRIMES [facility] During your visit today, we [...] BLOOD COUNT AND DIFFERENTIAL [SQCBCDIF] Order #: [id number] FUTURE IRON AND TIBC [SQIRON] Order #: [id number] FUTURE VITAMIN B12 [SQB12] Order #: [id number] FUTURE FOLATE, SERUM [SQSERFOL] Order #: [id number] FUTURE FERRITIN [SQFERR] Order #: [id number] FUTURE BASIC METABOLIC PANEL [SQBMP] Order #: [id number] FUTURE Prescriptions as of 07/22/2025 - lisinopril [...] tablet by mouth once daily. - Ipratropium Hadley (ATROVENT) 21 mcg (0.03 %) nasal spray [...] DM - Controlled E11.9 Insulin: No - Jypmjyqx-Jl-Lsl-Fe- FA tab Take 1 tablet by mouth [...] 05/06/2009 01/23/2010 Routine general medical examination at [facility]*01/23/2010 12/06/2012 Class: Chronic Routine gynecological examination [Z01.419] 01/23/2010 02/22/2014 Class: Chronic Morbid obesity (HCC) [E66.01] 01/23/2010 06/07/2025 Lumbar Disc Disorder [M51.9] 02/16/2010 Routine general medical examination at [facility]*12/06/2012 02/22/2014 Anxiety [F41.9] 06/07/2014 Type 2 [...] [I10] 08/16 (more content not included)... Normal [facility] CBC W/Diff, Automatedon 07-05 PATH REV Reviewed Normal [facility] Comment on above: Result Comment: SEE REPORT IN PATIENT'S EMR AMENDED REPORT 07/21/25 1824 PATH REV previously reported as: March Performed By: #### L 100.0100, L500.2500 ####[facility] [address] [place], [place], [address] CNOVon 07-15-2025 CNOV Office Visit (FAMPWS) ---- TORI GRAY ([id number]) 1980 F Date Time Provider Department 07/15/25 9:20 AM LUBNA DE LA GARZA During your visit today, we recorded the following information about you: Temperature Pulse Blood pressure Weight 97.6 degrees 73/minute 128/76 122 kg Lubna De La Garza APRN.CHEMISTRY LECTURER 07/15/2025 9:54 AM Signed This is a 45 year old female who presents today with: Patient presents with: Hospital F/U: [facility] DX Sepsis, UTI D/C 07/07 HISTORY OF PRESENT ILLNESS: Tori Gray is a 45 year old female. Patient presents with: Hospital F/U: [facility] DX Sepsis, UTI D/C 07/07 The patient is a 45-year-old female with type 2 DM on insulin, presenting for follow-up of glycemic control and evaluation of persistent fatigue post-hospitalizatio n for anemia. UTI: - Tori Gray was hospitalized for a UTI; completed a course of cefdinir yesterday. - Reports feeling 80% better with no current dysuria. - Believes the [...] 1 tablet by mouth once daily. Ipratropium Hadley (ATROVENT) 21 mcg (0.03 %) nasal spray [...] Test blo (more content not included)... Normal [facility] TORI GRAY ([id number]) 1980 F Date Time Provider Department 07/15/25 LUBNA DE LA GARZA [facility] During your visit today, we recorded the following information about you: Lubna De La Garza APRN.[facility] 07/15/2025 9:30 AM Signed Patient was seen at [facility] on August 03, 2025 for sepsis, complicated urinary tract infection. Patient presented to the emergency room with some confusion and found to have hyperosmolar nonketotic state as well as sepsis secondary to urinary tract infection in addition to acute kidney injury. She was seen by the ship pilot. Acute metabolic encephalopathy secondary to sepsis and [...] tablet by mouth once daily. - Ipratropium Hadley (ATROVENT) 21 mcg (0.03 %) nasal spray [...] DM - Controlled E11.9 Insulin: No - Jntwdmqq-Xg-Xfm-Fe- FA tab Take 1 tablet by mouth [...] general medical examination at [facility]*01/23/2010 12/06/2012 Class: Chronic Routine gynecological examination [Z01.419] 01/23/2010 02/22/2014 Class: Chronic Morbid obesity (HCC) [E66.01] 01/23/2010 06/07/2025 Lumbar Disc Disorder [M51.9] 02/16/2010 Routine general medical examination at [facility]*12/06/2012 02/22/2014 Anxiety [F41.9] 08 (more content not included)... Normal [facility] Culture, Blood (WB)on 2024 CUB Blood cultures x2, from two different sites No growth in 5 days. Normal [facility] Comment on above: Performed By: #### M 200.1000 ####[facility] [address] [place], [place], [address] CUB Blood cultures x2, from two different sites No growth in 5 days. Normal [facility] Comment on above: Performed By: #### M 200.1000 ####[facility] [address] [place], [place], [address] Orthopedic Visit Reporton Orthopedic Visit Report Normal [facility] Absolute lymphocyte countOrd ered By: Jose Juan Reinoso on 07-07-2025 Lymphocytes Auto (Unsp spec) [#/Vol] 1.80 10*3/uL 0.83-4.51 [facility] Absolute neutrophil countOrd ered By: Jose Juan Reinoso on 07-07-2025 Neutrophils (Bld) [#/Vol] 3.9 10*3/uL 2.0-7.7 [facility] Anion gap in Serum or Plasma Ordered By: Jose Juan Reinoso on 07-07-2025 Anion gap [Moles/Vol] 12 mmol/L 03-18 [facility] BUN/creatinine ratioOrdered By: Jose Juan Reinoso on 07-07-2025 Urea nitrogen/Creatinine [Mass ratio] 16.6 mg/mg - [facility] Basic Metabolic Profile (BMP )on 07-07-2025 BUN/CRE 16.6 RATIO Normal 08-23 [facility] Comment on above: Performed By: #### L 100.0100, L500.2500 ####[facility] [address] [place], [address] Calcium [Mass/Vol] 8.8 mg/dL Normal 7.6-11.0 [facility] Comment on above: Performed By: #### L 100.0100, L500.2500 ####[facility] [address] [place], [address] Chloride [Moles/Vol] 105 mmol/L Normal 98-108 [facility] Comment on above: Performed By: #### L 100.0100, L500.2500 ####[facility] [address] [place], [address] CO2 [Moles/Vol] 18.4 mmol/L Low 21.0-32.0 [facility] Comment on above: Performed By: #### L 100.0100, L500.2500 ####[facility] [address] [place], [address] Creatinine [Mass/Vol] 1.14 mg/dL Normal 0.70-1.20 [facility] Comment on above: Performed By: #### L 100.0100, L500.2500 ####[facility] [address] [place], [address] ECRCL 88.48 ml/min Normal 50-250 [facility] Comment on above: Performed By: #### L 100.0100, L500.2500 ####[facility] [address] [place], [address] GAP 12 Normal 5-15 [facility] Comment on above: Performed By: #### L 100.0100, L500.2500 ####[facility] [address] [place], [address] GFR/1.73 sq M.predicted among non-blacks MDRD (S/P/Bld) [Vol rate/Area] 61 mL/min/{1.73_m2} Normal >60 [facility] Comment on above: Result Comment: mL/m in/1.73m2 CKD-EPI Creatinine Equation (2020) Performed By: #### L 100.0100, L500.2500 ####[facility] [address] [place], [address] Glucose [Mass/Vol] 223 mg/dL High 70-99 [facility] Comment on above: Performed By: #### L 100.0100, L500.2500 ####[facility] [address] [place], [address] Potassium [Moles/Vol] 3.5 mmol/L Normal 3.3-5.1 [facility] Comment on above: Performed By: #### L 100.0100, L500.2500 ####[facility] [address] [place], [address] Sodium [Moles/Vol] 136 mmol/L Normal 133-145 [facility] Comment on above: Performed By: #### L 100.0100, L500.2500 ####[facility] [address] [place], [address] Urea nitrogen [Mass/Vol] 19 mg/dL Normal 4-19 [facility] Comment on above: Performed By: #### L 100.0100, L500.2500 ####[facility] [address] [place], [address] Bedside Glucoseon 07-07-2025 FINGERSTICK GLU 202 mg/dL High 74-106 [facility] Comment on above: Result Comment: [place] OF PATIENT CARE PER NURSING PROTOCOL Performed By: #### L 501.080 ####[facility] [address] [place], [address] Blood band neutrophil count as percentage of total leukocytesOrdered By: Jose Juan Reinoso on 07-07-2025 Band form neutrophils/100 WBC (Bld) 3 % 0-5 [facility] Blood blasts/100 leukocytesO rdered By: Jose Juan Reinoso on 07-07-2025 Blasts/100 WBC (Bld) 1 % Critically high 0-0 [facility] Blood eosinophils/100 leukoc ytesOrdered By: Jose Juan Reinoso on 07-07-2025 Eosinophils/100 WBC (Bld) 2 % 0-5 [facility] Blood lymphocytes/100 leukoc ytesOrdered By: Jose Juan Reinoso on 07-07-2025 Lymphocytes/100 WBC (Bld) 29 % 19-41 [facility] Blood metamyelocytes/100 facundo kocytesOrdered By: Jose Juan Reinoso on 07-07-2025 Metamyelocytes/100 WBC (Bld) 1 % 0-1 [facility] Blood monocytes/100 leukocyt esOrdered By: Jose Juan Reinoso on 07-07-2025 Monocytes/100 WBC (Bld) 4 % 0-10 [facility] Blood segmented neutrophils/ 100 leukocytesOrdered By: Jose Juan Reinoso on 07-07-2025 Segmented neutrophils/100 WBC (Bld) 60 % 47-70 [facility] Carbon dioxide, total [Moles /volume] in Central venous bloodOrdered By: Jose Juan Reinoso on 07-07-2025 CO2 [Moles/Vol] 18.4 mmol/L Low 21.0-32.0 [facility] Chloride assayOrdered By: Rachelle Reinoso on 07-07-2025 Chloride [Moles/Vol] 105 mmol/L 98-108 [facility] Electrolyte Panelon 07-07-20 25 CL Normal 98-108 [facility] Comment on above: Result Comment: [place] julian via OM: Ordered Performed By: #### L 501.5294 ####[facility] [address] [place], [address] CO2 Normal 21.0-32.0 [facility] Comment on above: Result Comment: [place] julian via OM: Ordered Performed By: #### L 501.5294 ####[facility] [address] [place], [address] GAP Normal 5-15 [facility] Comment on above: Result Comment: Canc elled via OM: MD Ordered Performed By: #### L 501.5294 ####[facility] [address] [place], [address] Potassium Normal 3.3-5.1 [facility] Comment on above: Result Comment: Canc elled via OM: MD Ordered Performed By: #### L 501.5294 ####[facility] [address] [place], [address] Electrolyte Panel Normal 133-145 [facility] Comment on above: Result Comment: Canc elled via OM: MD Ordered Performed By: #### L 501.5294 ####[facility] [address] [place], [address] Erythrocyte distribution wid th ratioOrdered By: Jose Juan Reinoso on 07-07-2025 Erythrocyte distribution width (RBC) [Ratio] 14.1 % 11.6-14.6 [facility] Erythrocyte distribution wid th standard deviationOrdered By: Jose Juan Reinoso on 07-07-2025 Erythrocyte distribution width (RBC) [Ratio] 50.4 fl High 35.1-43.9 [facility] Erythrocyte morphology asses smentOrdered By: Jose Juan Reinoso on 07-07-2025 RBC morphology finding Nom (Bld) NORM C+C NORMAL NORM C&C [facility] Glomerular filtration rate ( GFR) estimation/1.73 sq m using serum, plasma, or whole bOrdered By: Jose Juan Reinoso on 07-07-2025 GFR/1.73 sq M.predicted among non-blacks MDRD (S/P/Bld) [Vol rate/Area] 61 mL/min/{1.73_m2} >60 [facility] Comment on above: mL/min/1.73m2 CKD-EP I Creatinine Equation (2020) Glucose measurement at bedsi deOrdered By: Brittany Harrison on 07-07-2025 Glucose [Mass/Vol] 202 mg/dL High 74-106 [facility] Comment on above: MANAGEMENT OF PATIEN T CARE PER NURSING PROTOCOL Hematocrit Auto (Bld) [Volum e fraction]Ordered By: Jose Juan Reinoso on 07-07-2025 Hematocrit (Bld) [Volume fraction] 27.7 % Low 37-47 [facility] Hemoglobin measurementOrdere d By: Jose Juan Reinoso on 07-07-2025 Hemoglobin (Bld) [Mass/Vol] 9.5 g/dL Low 12.0-15.0 [facility] MCV (mean corpuscular volume ) determinationOrdered By: Jose Juan Reinoso on 07-07-2025 MCV (RBC) [Entitic vol] 96.9 fL 81-99 [facility] Mean corpuscular hemoglobin (MCH) determinationOrdered By: Jose Juan Reinoso on 07-07-2025 MCH (RBC) [Entitic mass] 33.2 pg High 27.0-32.0 [facility] Mean corpuscular hemoglobin concentration (MCHC) determinationOrdered By: Jose Juan Reinoso on 07-07-2025 MCHC (RBC) [Mass/Vol] 34.3 g/dL 32-36 [facility] Mean platelet volume determi nationOrdered By: Jose Juan Reinoso on 07-07-2025 Platelet mean volume (Bld) [Entitic vol] 9.4 fL 6.2-12.0 [facility] Platelet countOrdered By: Rachelle Reinoso on 07-07-2025 Platelets (Bld) [#/Vol] 187 10*3/uL 150-450 [facility] Platelet estimateOrdered By: Jose Juan Reinoso on 07-07-2025 Platelets LM Ql (Bld) ADEQUATE ADEQ [facility] Potassium measurement (mass/ volume)Ordered By: Jose Juan Reinoso on 07-07-2025 Potassium (Unsp spec) [Mass/Vol] 3.5 mmol/L 3.3-5.1 [facility] RBC Auto (Bld) [#/Vol]Ordere d By: Jose Juan Reinoso on 07-07-2025 RBC (Bld) [#/Vol] 2.86 10*6/uL Low 4.2-5.4 [facility] Review by pathologistOrdered By: Jose Juan Reinoso on 07-07-2025 Pathologist review Christiano (Unsp spec) [Interp] March [facility] Pathologist review Christiano (Unsp spec) [Interp] Reviewed [facility] Serum creatinine measurement (mass/volume)Ordered By: Jose Juan Reinoso on 07-07-2025 Creatinine [Mass/Vol] 1.14 mg/dL 0.70-1.20 [facility] Serum glucose measurement (m ass/volume)Ordered By: Jose Juan Reinoso on 07-07-2025 Glucose [Mass/Vol] 223 mg/dL High 70-99 [facility] Serum or plasma calcium sharron urement (mass/volume)Ordered By: Jose Juan Reinoso on 07-07-2025 Calcium [Mass/Vol] 8.8 mg/dL 7.6-11.0 [facility] Serum or plasma urea nitroge n measurement (mass/volume)Ordered By: Jose Juan Reinoso on 07-07-2025 Urea nitrogen [Mass/Vol] 19 mg/dL 4-19 [facility] Sodium levelOrdered By: Artemio Reinoso on 07-07-2025 Sodium [Moles/Vol] 136 mmol/L 133-145 [facility] Total cell countOrdered By: Jose Juan Reinoso on 07-07-2025 Cells counted Molgen (Bld/Tiss) [#] 100 MANUAL DIFF [facility] Urine Cultureon 07-07-2025 URC Normal [facility] Comment on above: Performed By: #### M 100.2200 ####[facility] [address] [place], [address] White blood cell (WBC) count Ordered By: Jose Juan Reinoso on 07-07-2025 WBC (Bld) [#/Vol] 6.2 10*3/uL 4.4-11.0 [facility] Automated lymphocyte count a s percentage of total leukocytesOrdered By: Shana Mendoza on 07-06-2025 Lymphocytes/100 WBC Auto (Unsp spec) 16.7 % Low 19-41 [facility] Basophil percentageOrdered B y: Shana White on 07-06-2025 Basophils/100 WBC (Bld) 0.3 % 0-1 [facility] Bedside Glucoseon 07-06-2025 FINGERSTICK GLU 165 mg/dL High 74-106 [facility] Comment on above: Result Comment: SANTA GEMENT OF PATIENT CARE PER NURSING PROTOCOL Performed By: #### L 501.080 ####[facility] [address] [facility] [address] FINGERSTICK GLU 181 mg/dL High [facility]106 [facility] Comment on above: Result Comment: SANTA GEMENT OF PATIENT CARE PER NURSING PROTOCOL Performed By: #### L 501.080 ####[facility] [address] [facility] [address] FINGERSTICK GLU 138 mg/dL High 74-106 [facility] Comment on above: Result Comment: SANTA GEMENT OF PATIENT CARE PER NURSING PROTOCOL Performed By: #### L 501.080 ####[facility] [address] [place], [address] FINGERSTICK GLU 144 mg/dL High [address] [facility] Comment on above: Result Comment: SANTA GEMENT OF PATIENT CARE PER NURSING PROTOCOL Performed By: #### L 501.080 ####[facility] [address] [facility] [address] FINGERSTICK GLU 176 mg/dL High 74-106 [facility] Comment on above: Result Comment: SANTA GEMENT OF PATIENT CARE PER NURSING PROTOCOL Performed By: #### L 501.080 ####[facility] [address] [facility] [address] FINGERSTICK GLU 168 mg/dL High [facility]106 [facility] Comment on above: Result Comment: SANTA GEMENT OF PATIENT CARE PER NURSING PROTOCOL Performed By: #### L 501.080 ####[facility] [address] [place], [address] FINGERSTICK GLU 160 mg/dL High 74-106 [facility] Comment on above: Result Comment: SANTA GEMENT OF PATIENT CARE PER NURSING PROTOCOL Performed By: #### L 501.080 ####[facility] [address] [place], [address] FINGERSTICK GLU 187 mg/dL High 74-106 [facility] Comment on above: Result Comment: SANTA GEMENT OF PATIENT CARE PER NURSING PROTOCOL Performed By: #### L 501.080 ####[facility] [address] [place], [address] FINGERSTICK GLU 186 mg/dL High 74-106 [facility] Comment on above: Result Comment: SANTA GEMENT OF PATIENT CARE PER NURSING PROTOCOL Performed By: #### L 501.080 ####[facility] [address] [place], [address] FINGERSTICK GLU 156 mg/dL High 74-106 [facility] Comment on above: Result Comment: SANTA GEMENT OF PATIENT CARE PER NURSING PROTOCOL Performed By: #### L 501.080 ####[facility] [address], [address] FINGERSTICK GLU 169 mg/dL High 74-106 [facility] Comment on above: Result Comment: SATNA GEMENT OF PATIENT CARE PER NURSING PROTOCOL Performed By: #### L 501.080 ####[facility] [address], [address] FINGERSTICK GLU 164 mg/dL High 74-106 [facility] Comment on above: Result Comment: SANTA GEMENT OF PATIENT CARE PER NURSING PROTOCOL Performed By: #### L 501.080 ####[facility] [address] [place], [address] FINGERSTICK GLU 165 mg/dL High 74-106 [facility] Comment on above: Result Comment: SANTA GEMENT OF PATIENT CARE PER NURSING PROTOCOL Performed By: #### L 501.080 ####[facility] [address] [place], [address] FINGERSTICK GLU 211 mg/dL High 74-106 [facility] Comment on above: Result Comment: SANTA GEMENT OF PATIENT CARE PER NURSING PROTOCOL Performed By: #### L 501.080 ####[facility] [address] [place], [address] Bilirubin, totalOrdered By: Sahna Mendoza on 07-06-2025 Bilirubin [Mass/Vol] 0.41 mg/dL 0.00-1.30 [facility] CBC W/Diff, Automatedon Absolute Lymph 1.07 X10 3/uL Normal 0.83-4.51 [facility] Comment on above: Performed By: #### L 100.0100, L501.9985 ####[facility] [address] [place], [address] Absolute Neut 4.7 X10 3/uL Normal 2.0-7.7 [facility] Comment on above: Performed By: #### L 100.0100, L501.9985 ####[facility] [address] [place], [address] Basophils/100 WBC (Bld) 0.3 % Normal 0-1 [facility] Comment on above: Performed By: #### L 100.0100, L501.9985 ####[facility] [address] [place], [address] Eosinophils/100 WBC (Bld) 1.4 % Normal 0-5 [facility] Comment on above: Performed By: #### L 100.0100, L501.9985 ####[facility] [address] [place], [address] Erythrocyte distribution width (RBC) [Ratio] 13.9 % Normal 11.6-14.6 [facility] Comment on above: Performed By: #### L 100.0100, L5.85 ####[facility] [address] [place], [address] Hematocrit (Bld) [Volume fraction] 25.4 % Low 37-47 [facility] Comment on above: Performed By: #### L 100.0100, L5.85 ####[facility] [address] [place], [address] Hemoglobin (Bld) [Mass/Vol] 8.7 g/dL Low 12.0-15.0 [facility] Comment on above: Performed By: #### L 100.0100, L5.85 ####[facility] [address] [place], [address] IG% 1.400 High 0.0-0.9 [facility] Comment on above: Result Comment: IG% - Immature Granulocytes (promyelocytes, myelocytes andmetamyelocytes) > 1% indicates that a LEFT SHIFT is Present. Performed By: #### L 100.0100, L5.85 ####[facility] [address] [place], [address] Lymphocytes/100 WBC (Bld) 16.7 % Low 19-41 [facility] Comment on above: Performed By: #### L 100.0100, L5.85 ####[facility] [address] [place], [address] MCH (RBC) [Entitic mass] 33.1 pg High 27.0-32.0 [facility] Comment on above: Performed By: #### L 100.0100, L5.9985 ####[facility] [address] [place], [address] MCHC (RBC) [Mass/Vol] 34.3 g/dL Normal 32-36 [facility] Comment on above: Performed By: #### L 100.0100, L501.9985 ####[facility] [address] [place], [address] MCV (RBC) [Entitic vol] 96.6 fL Normal 81-99 [facility] Comment on above: Performed By: #### L 100.0100, L501.9985 ####[facility] [address] [place], [address] Monocytes/100 WBC (Bld) 6.6 % Normal 0-10 [facility] Comment on above: Performed By: #### L 100.0100, L501.9985 ####[facility] [address] [place], [address] Neutrophils/100 WBC (Bld) 73.6 % High 47-70 [facility] Comment on above: Performed By: #### L 100.0100, L501.9985 ####[facility] [address] [place], [address] Nucleated RBC (Bld) [#/Vol] 0 10*3/uL Normal 0-5 [facility] Comment on above: Performed By: #### L 100.0100, L501.9985 ####[facility] [address] [place], [address] Platelet mean volume (Bld) [Entitic vol] 9.9 fL Normal 6.2-12.0 [facility] Comment on above: Performed By: #### L 100.0100, L501.9985 ####[facility] [address] [place], [address] Platelets (Bld) [#/Vol] 145 10*3/uL Low 150-450 [facility] Comment on above: Performed By: #### L 100.0100, L501.9985 ####[facility] [address] [place], [address] RBC (Bld) [#/Vol] 2.63 10*6/uL Low 4.2-5.4 [facility] Comment on above: Performed By: #### L 100.0100, L501.9985 ####[facility] [address] [place], [address] RDW SD 49.3 fl High 35.1-43.9 [facility] Comment on above: Performed By: #### L 100.0100, L501.9985 ####[facility] [address] [place], [address] WBC (Bld) [#/Vol] 6.4 10*3/uL Normal 4.4-11.0 [facility] Comment on above: Performed By: #### L 100.0100, L501.9985 ####[facility] [address] [place], [address] Comprehensive Metabolic Prof vaon 07-06-2025 Albumin [Mass/Vol] 3.1 g/dL Low 3.5-5.0 [facility] Comment on above: Order Comment: Comme nts: May add to ED labs Performed By: #### L 501.2300, L500.4050 ####[facility] [address] [place], [address] Albumin/Globulin [Mass ratio] 1.0 {ratio} Normal 0.9-2.4 [facility] Comment on above: Order Comment: Comme nts: May add to ED labs Performed By: #### L 501.2300, L500.4050 ####[facility] [address] [place], [address] ALK PHOS 102 U/L Normal 35-104 [facility] Comment on above: Order Comment: Comme nts: May add to ED labs Performed By: #### L 501.2300, L500.4050 ####[facility] [address] [place], [address] ALT [Catalytic activity/Vol] 23 U/L Normal <=34 [facility] Comment on above: Order Comment: Comme nts: May add to ED labs Performed By: #### L 501.2300, L500.4050 ####[facility] [address] [place], [address] AST [Catalytic activity/Vol] 15 U/L Normal <=31 [facility] Comment on above: Order Comment: Comme nts: May add to ED labs Performed By: #### L 501.2300, L500.4050 ####[facility] [address] [place], [address] Bilirubin [Mass/Vol] 0.41 mg/dL Normal 0.00-1.30 [facility] Comment on above: Order Comment: Comme nts: May add to ED labs Performed By: #### L 501.2300, L500.4050 ####[facility] [address] [place], [address] BUN/CRE 19.4 RATIO Normal 10-20 [facility] Comment on above: Order Comment: Comme nts: May add to ED labs Performed By: #### L 501.2300, L500.4050 ####[facility] [address] [place], [address] Calcium [Mass/Vol] 8.1 mg/dL Normal 7.6-11.0 [facility] Comment on above: Order Comment: Comme nts: May add to ED labs Performed By: #### L 501.2300, L500.4050 ####[facility] [address] [place], [address] Chloride [Moles/Vol] 106 mmol/L Normal 98-108 [facility] Comment on above: Order Comment: Comme nts: May add to ED labs Performed By: #### L 501.2300, L500.4050 ####[facility] [address] [place], [address] CO2 [Moles/Vol] 17.0 mmol/L Low 21.0-32.0 [facility] Comment on above: Order Comment: Comme nts: May add to ED labs Performed By: #### L 501.2300, L500.4050 ####[facility] [address] [place], [address] Creatinine [Mass/Vol] 1.47 mg/dL High 0.70-1.20 [facility] Comment on above: Order Comment: Comme nts: May add to ED labs Performed By: #### L 501.2300, L500.4050 ####[facility] [address] [place], [address] ECRCL 69.18 ml/min Normal 50-250 [facility] Comment on above: Order Comment: Comme nts: May add to ED labs Performed By: #### L 501.2300, L500.4050 ####[facility] [address] [place], [address] GAP 11 Normal 5-15 [facility] Comment on above: Order Comment: Comme nts: May add to ED labs Performed By: #### L 501.2300, L500.4050 ####[facility] [address] [place], [address] GFR/1.73 sq M.predicted among non-blacks MDRD (S/P/Bld) [Vol rate/Area] 45 mL/min/{1.73_m2} Low >60 [facility] Comment on above: Order Comment: Comme nts: May add to ED labs Result Comment: mL/m in/1.73m2 CKD-EPI Creatinine Equation (2020) Performed By: #### L 501.2300, L500.4050 ####[facility] [address] [place], [address] Globulin (S) [Mass/Vol] 3.3 g/dL Normal 2.2-4.2 [facility] Comment on above: Order Comment: Comme nts: May add to ED labs Performed By: #### L 501.2300, L500.4050 ####[facility] [address] [place], [address] Glucose [Mass/Vol] 195 mg/dL High 70-99 [facility] Comment on above: Order Comment: Comme nts: May add to ED labs Performed By: #### L 501.2300, L500.4050 ####[facility] [address] [place], [address] Potassium [Moles/Vol] 3.4 mmol/L Normal 3.3-5.1 [facility] Comment on above: Order Comment: Comme nts: May add to ED labs Performed By: #### L 501.2300, L500.4050 ####[facility] [address] [place], [address] Performed By: #### L 501.5294 ####[facility] [address] [place], [address] Sodium [Moles/Vol] 134 mmol/L Normal 133-145 [facility] Comment on above: Order Comment: Comme nts: May add to ED labs Performed By: #### L 501.2300, L500.4050 ####[facility] [address] [place], [address] T PROT 6.4 g/dL Normal 5.9-8.4 [facility] Comment on above: Order Comment: Comme nts: May add to ED labs Performed By: #### L 501.2300, L500.4050 ####[facility] [address] [place], [address] Urea nitrogen [Mass/Vol] 29 mg/dL High 4-19 [facility] Comment on above: Order Comment: Comme nts: May add to ED labs Performed By: #### L 501.2300, L500.4050 ####[facility] [address] [place], [address] Consultation - Intensiviston 07-06-2025 Consultation - Software Test Engineer Normal [facility] Electrocardiogram reportOrde red By: Jackson Keenan on 07-06-2025 EKG study [facility] Cardiovascular Services [address] [place] [address] 12 Lead EKG 07/05/25 1747 MR#: [id number] Acct: [id number] Name: TORI GRAY Rep #:[id number] : 1980 45 From: Jackson weiss MD [...] abnormality Abnormal ECG Confirmed by Jackson Keenan ([id number]), editor in chief newspaper PRISCILA FERRERA ([id number]) on 07/06/2025 11:04:28 AM Referred By: Confirmed By: Jackson Keenan 07/06/25 1104 Date _ Jackson Keenan MD CC: Dr. Jose Juan Reinoso MD; Dr. Abhi Pina MD; Dr. Ivette Grimes MD ~ Signed [facility] Work Phone: Electrolyte Panelon 07-06-20 25 CL Normal 98-108 [facility] Comment on above: Result Comment: Canc eliel via OM: MD Ordered Performed By: #### L 501.5294 ####[facility] [address] [place], [address] CO2 Normal 21.0-32.0 [facility] Comment on above: Result Comment: Canc elled via OM: MD Ordered Performed By: #### L [id number] ####[facility] [address] [place], [address] GAP Normal 5-15 [facility] Comment on above: Result Comment: Canc elled via OM: MD Ordered Performed By: #### L 5294 ####[facility] [address] [place], [address] Potassium Normal 3.3-5.1 [facility] Comment on above: Result Comment: Canc elled via OM: MD Ordered Performed By: #### L 5294 ####[facility] [address] [place], [address] Electrolyte Panel Normal 133-145 [facility] Comment on above: Result Comment: Canc elled via OM: MD Ordered Performed By: #### L [id number] ####[facility] [address] [place], [address] CL Normal 98-108 [facility] Comment on above: Result Comment: Canc elled via OM: MD Ordered Performed By: #### L 501.5294 ####[facility] [address] [place], [address] CO2 Normal 21.0-32.0 [facility] Comment on above: Result Comment: Canc elled via OM: MD Ordered Performed By: #### L [id number] ####[facility] [address] [place], [address] GAP Normal 5-15 [facility] Comment on above: Result Comment: Canc elled via OM: MD Ordered Performed By: #### L 94 ####[facility] [address] [place], [address] Potassium Normal 3.3-5.1 [facility] Comment on above: Result Comment: Canc elled via OM: MD Ordered Performed By: #### L 5294 ####[facility] [address] [place], [address] Electrolyte Panel Normal 133-145 [facility] Comment on above: Result Comment: Canc elled via OM: MD Ordered Performed By: #### L 94 ####[facility] [address] [place], [address] CL Normal 98-108 [facility] Comment on above: Result Comment: Canc elled via OM: MD Ordered Performed By: #### L 94 ####[facility] [address] [place], [address] CO2 Normal 21.0-32.0 [facility] Comment on above: Result Comment: Canc elled via OM: MD Ordered Performed By: #### L 94 ####[facility] [address] [place], [address] GAP Normal 5-15 [facility] Comment on above: Result Comment: Canc elled via OM: MD Ordered Performed By: #### L 94 ####[facility] [address] [place], [address] Potassium Normal 3.3-5.1 [facility] Comment on above: Result Comment: Canc elled via OM: MD Ordered Performed By: #### L 5294 ####[facility] [address] [place], [address] Electrolyte Panel Normal 133-145 [facility] Comment on above: Result Comment: Canc elled via OM: MD Ordered Performed By: #### L 94 ####[facility] [address] [place], [address] CL Normal 98-108 [facility] Comment on above: Result Comment: Canc elled via OM: MD Ordered Performed By: #### L 501.5294 ####[facility] [address] [place], [address] CO2 Normal 21.0-32.0 [facility] Comment on above: Result Comment: Canc elled via OM: MD Ordered Performed By: #### L 501.5294 ####[facility] [address] [place], [address] GAP Normal 5-15 [facility] Comment on above: Result Comment: Canc elled via OM: MD Ordered Performed By: #### L 501.5294 ####[facility] [address] [place], [address] Potassium Normal 3.3-5.1 [facility] Comment on above: Result Comment: Canc elled via OM: MD Ordered Performed By: #### L [id number] ####[facility] [address] [place], [address] Electrolyte Panel Normal 133-145 [facility] Comment on above: Result Comment: Canc elled via OM: MD Ordered Performed By: #### L 501.5294 ####[facility] [address] [place], [address] CL Normal 98-108 [facility] Comment on above: Result Comment: DUPL ICATE-CMP ORDERED Performed By: #### L [id number] ####[facility] [address] [place], [address] CO2 Normal 21.0-32.0 [facility] Comment on above: Result Comment: DUPL ICATE-CMP ORDERED Performed By: #### L [id number] ####[facility] [address] [place], [address] GAP Normal 5-15 [facility] Comment on above: Result Comment: DUPL ICATE-CMP ORDERED Performed By: #### L 501.5294 ####[facility] [facility] [address] [place], [address] Potassium Normal 3.3-5.1 [facility] Comment on above: Result Comment: DUPL ICATE-CMP ORDERED Performed By: #### L 501.5294 ####[facility] [address] [place], [address] Electrolyte Panel Normal 133-145 [facility] Comment on above: Result Comment: DUPL ICATE-CMP ORDERED Performed By: #### L 501.5294 ####[facility] [address] [place], [address] CL Normal 98-108 [facility] Comment on above: Result Comment: [place] elled via OM: Ordered Performed By: #### L 501.5294 ####[facility] [address] [place], [address] CO2 Normal 21.0-32.0 [facility] Comment on above: Result Comment: [place] elled via OM: Ordered Performed By: #### L 501.5294 ####[facility] [address] [place], [address] GAP Normal 5-15 [facility] Comment on above: Result Comment: [place] bearded via OM: Ordered Performed By: #### L 501.5294 ####[facility] [address] [place], [address] Potassium Normal 3.3-5.1 [facility] Comment on above: Result Comment: [place] elled via OM: Ordered Performed By: #### L 501.5294 ####[facility] [address] [place], [address] Electrolyte Panel Normal 133-145 [facility] Comment on above: Result Comment: [place] julian via OM: Ordered Performed By: #### L 501.5294 ####[facility] [address] [place], [address] Chloride [Moles/Vol] 104 mmol/L Normal 98-108 [facility] Comment on above: Performed By: #### L 501.5294 ####[facility] [address] [place], [address] CO2 [Moles/Vol] 17.4 mmol/L Low 21.0-32.0 [facility] Comment on above: Performed By: #### L 501.5294 ####[facility] [address] [place], [address] GAP 12 Normal 5-15 [facility] Comment on above: Performed By: #### L 501.5294 ####[facility] [address] [place], [address] Sodium [Moles/Vol] 133 mmol/L Normal 133-145 [facility] Comment on above: Performed By: #### L 501.5294 ####[facility] [address] [place], [address] Eosinophil percentageOrdered By: Shana Mendoza on 07-06-2025 Eosinophils/100 WBC (Bld) 1.4 % 0-5 [facility] Hemoglobin A1con 07-06-2025 HbA1c (Bld) [Mass fraction] 7.6 % High <=5.6 [facility] Comment on above: Result Comment: Norm al < 5.7 % Prediabetic 5.7 - 6.4 % Diabetic >or= 6.5 % Please note range changes. Performed By: #### L 100.0100, L501.9985 ####[facility] [address] [place], [address] Hemoglobin A1c percentageOrd ered By: Shana Mendoza on 07-06-2025 HbA1c (Bld) [Mass fraction] 7.6 % High <5.7 [facility] Comment on above: Normal < 5.7 % Predi abetic 5.7 - 6.4 % Diabetic >or= 6.5 % Please note range changes. Immature granulocytes/100 WB C Auto (Bld)Ordered By: Shana Mendoza on 07-06-2025 Immature granulocytes/100 WBC (Bld) 1.400 % High 0.0-0.9 [facility] Comment on above: IG% - Immature Granu locytes (promyelocytes, myelocytes and metamyelocytes) > 1% indicates that a LEFT SHIFT is Present. Iron+Iron Binding Capacityon 07-06-2025 TIBC 166 ug/dL Low 250-450 [facility] Comment on above: Performed By: #### L 503.6030, L501.5294 ####[facility] [address] [place], [place], [address] Laboratory - Chemistry and C hemistry - challengeOrdered By: Shana Mendoza on 07-06-2025 AST [Catalytic activity/Vol] 15 U/L <32 [facility] M8200.1000on 07-06-2025 M8200.1000 Negative Normal [facility] Comment on above: Performed By: #### M 8200.1000 ####[facility] [address] [place], [place], [address] Magnesiumon 07-06-2025 Magnesium [Mass/Vol] 1.9 mg/dL Normal 1.5-2.2 [facility] Comment on above: Order Comment: Comme nts: may add to ED labsTG1 1 F Performed By: #### L 501.5200 ####[facility] [address] [place], [place], [id number] Magnesium measurement (mass/ volume)Ordered By: Shana Mendoza on 07-06-2025 Magnesium (Unsp spec) [Mass/Vol] 1.9 mg/dL 1.5-2.2 [facility] Monocyte percentageOrdered B y: Shana Mendoza on 07-06-2025 Monocytes/100 WBC (Bld) 6.6 % 0-10 [facility] Nasal methicillin resistant Staphylococcus aureus (MRSA) DNA detection by PCROrdered By: Shana Reji on 07-06-2025 MRSA DNA ALLYSON+probe Ql (Nose) [facility] No Panel InformationOrdered By: Shana Reji on 07-06-2025 15 U/L <32 [facility] Nucleated red blood cell per centageOrdered By: Shana Reji on 07-06-2025 Nucleated RBC/100 WBC (Bld) [Ratio] 0 % 0-5 [facility] Phosphoruson 07-06-2025 Phosphate [Mass/Vol] 2.4 mg/dL Low 2.7-4.5 [facility] Comment on above: Order Comment: Comme nts: May add to ED labs Performed By: #### L 501.2300, L500.4050 ####[facility] [address] [place], [address] Serum globulin measurementOr dered By: Shana Mendoza on 07-06-2025 Globulin (S) [Mass/Vol] 3.3 g/dL 2.2-4.2 [facility] Serum or plasma alanine arizmendi otransferase (ALT) measurementOrdered By: Shana Reji on 07-06-2025 ALT [Catalytic activity/Vol] 23 U/L <35 [facility] Serum or plasma albumin sharron urement (mass/volume)Ordered By: Shana Reji on 07-06-2025 Albumin [Mass/Vol] 3.1 g/dL Low 3.5-5.0 [facility] Serum or plasma albumin/glob ulin mass ratioOrdered By: Shana 07-06-2025 Albumin/Globulin [Mass ratio] 1.0 {ratio} 0.9-2.4 [facility] Serum or plasma alkaline toyin sphatase measurementOrdered By: Shana Reji on 07-06-2025 ALP [Catalytic activity/Vol] 102 U/L 35-104 [facility] Stool Occult Blood iFOBon STOB Negative Normal [facility] Comment on above: Performed By: #### M 100.7900 ####[facility] [address] [place], [address] Stool gastrointestinal hemog lobin detection by immunologic methodOrdered By: Shana Reji on 07-06-2025 Lower GI hemoglobin IA Ql (Stl) [facility] Total proteinOrdered By: Aut umn White on 07-06-2025 Protein [Mass/Vol] 6.4 g/dL 5.9-8.4 [facility] 12 Lead EKGon 07-05-2025 12 Lead EKG Normal [facility] Abdomen/Pelvis without Conto n 07-05-2025 Abdomen/Pelvis without Cont Normal [facility] Absolute lymphocyte countOrd ered By: Abhi Pina on 07-05-2025 Lymphocytes Auto (Unsp spec) [#/Vol] 0.99 10*3/uL 0.83-4.51 [facility] Absolute neutrophil countOrd ered By: [facility] Neutrophils (Bld) [#/Vol] 5.3 10*3/uL 2.0-7.7 [facility] Anion gap in Serum or Plasma Ordered By: Abhi Pina on 07-05-2025 Anion gap [Moles/Vol] 13 mmol/L 5-15 [facility] Automated lymphocyte count a s percentage of total leukocytesOrdered By: [facility] on 07-05-2025 Lymphocytes/100 WBC Auto (Unsp spec) 14.4 % Low 19-41 [facility] BUN/creatinine ratioOrdered By: [facility] on 07-05-2025 Urea nitrogen/Creatinine [Mass ratio] 20.7 mg/mg High 10-20 [facility] Basophil percentageOrdered B y: Abhi Pina on 07-05-2025 Basophils/100 WBC (Bld) 0.4 % 0-1 [facility] Bedside Glucoseon 07-05-2025 FINGERSTICK GLU 265 mg/dL High 74-106 [facility] Comment on above: Result Comment: SANTA GEMENT OF PATIENT CARE PER NURSING PROTOCOL Performed By: #### L 501.080 ####[facility] [address] [place], [address] FINGERSTICK GLU 321 mg/dL High 74-106 [facility] Comment on above: Result Comment: SANTA GEMENT OF PATIENT CARE PER NURSING PROTOCOL Performed By: #### L 501.080 ####[facility] [address] [place], [address] FINGERSTICK GLU 369 mg/dL High 74-106 [facility] Comment on above: Result Comment: SANTA GEMENT OF PATIENT CARE PER NURSING PROTOCOL Performed By: #### L 501.080 ####[facility] [address] [place], [address] FINGERSTICK GLU 459 mg/dL Invalid Interpretation Code 74-106 [facility] Comment on above: Result Comment: SANTA GEMENT OF PATIENT CARE PER NURSING PROTOCOL Performed By: #### L 501.080 ####[facility] [address] [place], [address] Beta-Hydroxbytyrateon 2024 BETA-HYDROXYBUT 0.1 mmol/L Normal 0.0-0.3 [facility] Comment on above: Performed By: #### L 501.6901, L501.5200 ####[facility] [address] [place], [address] Beta-hydroxybutyrateOrdered By: Abhi Pina on 07-05-2025 Beta hydroxybutyrate [Mass/Vol] 0.1 mmol/L 0.0-0.3 [facility] Bilirubin Test strip Ql (U)O rdered By: Abhi Pina on 07-05-2025 Bilirubin Ql (U) Negative Negative [facility] Bilirubin, totalOrdered By: Abhi Pina on 07-05-2025 Bilirubin [Mass/Vol] 0.57 mg/dL 0.00-1.30 [facility] Blood cultureOrdered By: Abhi Pina on 07-05-2025 Bacteria identified Cx Nom (Bld) No growth in 5 days. [facility] Bacteria identified Cx Nom (Bld) No growth in 5 days. [facility] CBC W/Diff, Automatedon Absolute Lymph 0.99 X10 3/uL Normal 0.83-4.51 [facility] Comment on above: Performed By: #### L 503.6005, L100.0100, L500.4050 ####[facility] [address] [place], [address] Absolute Neut 5.3 X10 3/uL Normal 2.0-7.7 [facility] Comment on above: Performed By: #### L 503.6005, L100.0100, L500.4050 ####[facility] [address] [place], [address] Basophils/100 WBC (Bld) 0.4 % Normal 0-1 [facility] Comment on above: Performed By: #### L 503.6005, L100.0100, L500.4050 ####[facility] [address] [place], [address] Eosinophils/100 WBC (Bld) 0.9 % Normal 0-5 [facility] Comment on above: Performed By: #### L 503.6005, L100.0100, L500.4050 ####[facility] [address] [place], [address] Erythrocyte distribution width (RBC) [Ratio] 13.8 % Normal 11.6-14.6 [facility] Comment on above: Performed By: #### L 503.6005, L100.0100, L500.4050 ####[facility] [address] [place], [address] Hematocrit (Bld) [Volume fraction] 28.2 % Low 37-47 [facility] Comment on above: Performed By: #### L 503.6005, L100.0100, L500.4050 ####[facility] [address] [place], [address] Hemoglobin (Bld) [Mass/Vol] 9.5 g/dL Low 12.0-15.0 [facility] Comment on above: Performed By: #### L 503.6005, L100.0100, L500.4050 ####[facility] [address] [place], [address] IG% 0.900 Normal 0.0-0.9 [facility] Comment on above: Result Comment: IG% - Immature Granulocytes (promyelocytes, myelocytes andmetamyelocytes) > 1% indicates that a LEFT SHIFT is Present. Performed By: #### L 503.6005, L100.0100, L500.4050 ####[facility] [address] [place], [address] Lymphocytes/100 WBC (Bld) 14.4 % Low 19-41 [facility] Comment on above: Performed By: #### L 503.6005, L100.0100, L500.4050 ####[facility] [address] [place], [address] MCH (RBC) [Entitic mass] 32.3 pg High 27.0-32.0 [facility] Comment on above: Performed By: #### L 503.6005, L100.0100, L500.4050 ####[facility] [address] [place], [address] MCHC (RBC) [Mass/Vol] 33.7 g/dL Normal 32-36 [facility] Comment on above: Performed By: #### L 503.6005, L100.0100, L500.4050 ####[facility] [address] [place], [address] MCV (RBC) [Entitic vol] 95.9 fL Normal 81-99 [facility] Comment on above: Performed By: #### L 503.6005, L100.0100, L500.4050 ####[facility] [address] [place], [address] Monocytes/100 WBC (Bld) 5.8 % Normal 0-10 [facility] Comment on above: Performed By: #### L 503.6005, L100.0100, L500.4050 ####[facility] [address] [place], [address] Neutrophils/100 WBC (Bld) 77.6 % High 47-70 [facility] Comment on above: Performed By: #### L 503.6005, L100.0100, L500.4050 ####[facility] [address] [place], [address] Nucleated RBC (Bld) [#/Vol] 0 10*3/uL Normal 0-5 [facility] Comment on above: Performed By: #### L 503.6005, L100.0100, L500.4050 ####[facility] [address] [place], [address] Platelet mean volume (Bld) [Entitic vol] 10.4 fL Normal 6.2-12.0 [facility] Comment on above: Performed By: #### L 503.6005, L100.0100, L500.4050 ####[facility] [address] [place], [address] Platelets (Bld) [#/Vol] 136 10*3/uL Low 150-450 [facility] Comment on above: Performed By: #### L 503.6005, L100.0100, L500.4050 ####[facility] [address] [place], [address] RBC (Bld) [#/Vol] 2.94 10*6/uL Low 4.2-5.4 [facility] Comment on above: Performed By: #### L 503.6005, L100.0100, L500.4050 ####[facility] [address] [place], [address] RDW SD 48.8 fl High 35.1-43.9 [facility] Comment on above: Performed By: #### L 503.6005, L100.0100, L500.4050 ####[facility] [address] [place], [address] WBC (Bld) [#/Vol] 6.9 10*3/uL Normal 4.4-11.0 [facility] Comment on above: Performed By: #### L 503.6005, L100.0100, L500.4050 ####[facility] [address] [place], [address] CO2 (BldV) [Moles/Vol]Ordere d By: Abhi Pina on 07-05-2025 CO2 [Moles/Vol] 17 mmol/L Low 23-33 [facility] Carbon dioxide, total [Moles /volume] in Central venous bloodOrdered By: Abhiasha Pina on 07-05-2025 CO2 [Moles/Vol] 15.9 mmol/L Low 21.0-32.0 [facility] Chest PA and Lateralon 07-05 Chest PA and Lateral Normal [facility] Chloride assayOrdered By: Ug asha Pina on 07-05-2025 Chloride [Moles/Vol] 101 mmol/L 98-108 [facility] Comprehensive Metabolic Prof ilon 07-05-2025 Albumin [Mass/Vol] 3.3 g/dL Low 3.5-5.0 [facility] Comment on above: Performed By: #### L 503.6005, L100.0100, L500.4050 ####[facility] [address] [place], [address] Albumin/Globulin [Mass ratio] 0.9 {ratio} Normal 0.9-2.4 [facility] Comment on above: Performed By: #### L 503.6005, L100.0100, L500.4050 ####[facility] [address] [place], [address] ALK PHOS 183 U/L High 35-104 [facility] Comment on above: Performed By: #### L 503.6005, L100.0100, L500.4050 ####[facility] [address] [place], [address] ALT [Catalytic activity/Vol] 26 U/L Normal <=34 [facility] Comment on above: Performed By: #### L 503.6005, L100.0100, L500.4050 ####[facility] [address] [place], [address] AST [Catalytic activity/Vol] 19 U/L Normal <=31 [facility] Comment on above: Performed By: #### L 503.6005, L100.0100, L500.4050 ####[facility] [address] [place], [address] Bilirubin [Mass/Vol] 0.57 mg/dL Normal 0.00-1.30 [facility] Comment on above: Performed By: #### L 503.6005, L100.0100, L500.4050 ####[facility] [address] [place], [address] BUN/CRE 20.7 RATIO High 10-20 [facility] Comment on above: Performed By: #### L 503.6005, L100.0100, L500.4050 ####[facility] [address] [place], [address] Calcium [Mass/Vol] 8.3 mg/dL Normal 7.6-11.0 [facility] Comment on above: Performed By: #### L 503.6005, L100.0100, L500.4050 ####[facility] [address] [place], [address] Chloride [Moles/Vol] 98 mmol/L Normal 98-108 [facility] Comment on above: Performed By: #### L 503.6005, L100.0100, L500.4050 ####[facility] [address] [place], [address] CO2 [Moles/Vol] 15.0 mmol/L Low 21.0-32.0 [facility] Comment on above: Performed By: #### L 503.6005, L100.0100, L500.4050 ####[facility] [address] [place], [address] Creatinine [Mass/Vol] 1.98 mg/dL High 0.70-1.20 [facility] Comment on above: Performed By: #### L 503.6005, L100.0100, L500.4050 ####[facility] [address] [place], [address] ECRCL 51.75 ml/min Normal 50-250 [facility] Comment on above: Performed By: #### L 503.6005, L100.0100, L500.4050 ####[facility] [address] [place], [address] GAP 15 Normal 5-15 [facility] Comment on above: Performed By: #### L 503.6005, L100.0100, L500.4050 ####[facility] [address] [place], [address] GFR/1.73 sq M.predicted among non-blacks MDRD (S/P/Bld) [Vol rate/Area] 32 mL/min/{1.73_m2} Low >60 [facility] Comment on above: Result Comment: mL/m in/1.73m2 CKD-EPI Creatinine Equation (2020) Performed By: #### L 503.6005, L100.0100, L500.4050 ####[facility] [address] [place], [address] Globulin (S) [Mass/Vol] 3.7 g/dL Normal 2.2-4.2 [facility] Comment on above: Performed By: #### L 503.6005, L100.0100, L500.4050 ####[facility] [address] [place], [address] Glucose [Mass/Vol] 533 mg/dL Invalid Interpretation Code 70-99 [facility] Comment on above: Result Comment: Crit ical Result(s) Called at: 1907 by:??MIGUELITO CEDILLO Results read back by same. Performed By: #### L 503.6005, L100.0100, L500.4050 ####[facility] [address] [place], [address] Potassium [Moles/Vol] 3.8 mmol/L Normal 3.3-5.1 [facility] Comment on above: Performed By: #### L 503.6005, L100.0100, L500.4050 ####[facility] [address] [place], [address] Sodium [Moles/Vol] 128 mmol/L Low 133-145 [facility] Comment on above: Performed By: #### L 503.6005, L100.0100, L500.4050 ####[facility] [address] [place], [address] T PROT 7.1 g/dL Normal 5.9-8.4 [facility] Comment on above: Performed By: #### L 503.6005, L100.0100, L500.4050 ####[facility] [address] [place], [address] Urea nitrogen [Mass/Vol] 41 mg/dL High 4-19 [facility] Comment on above: Performed By: #### L 503.6005, L100.0100, L500.4050 ####[facility] [address] [place], [address] Electrolyte Panelon 07-05-20 25 Chloride [Moles/Vol] 101 mmol/L Normal 98-108 [facility] Comment on above: Performed By: #### L 503.6030, L501.5294 ####[facility] [address] [place], [address] CO2 [Moles/Vol] 15.9 mmol/L Low 21.0-32.0 [facility] Comment on above: Performed By: #### L 503.6030, L501.5294 ####[facility] [address] [place], [address] GAP 13 Normal 5-15 [facility] Comment on above: Performed By: #### L 503.6030, L501.5294 ####[facility] [address] [place], [address] Potassium [Moles/Vol] 3.6 mmol/L Normal 3.3-5.1 [facility] Comment on above: Performed By: #### L 503.6030, L501.5294 ####[facility] [address] [place], [address] Sodium [Moles/Vol] 130 mmol/L Low 133-145 [facility] Comment on above: Performed By: #### L 503.6030, L501.5294 ####[facility] [address] [place], [address] Chloride [Moles/Vol] 101 mmol/L Normal 98-108 [facility] Comment on above: Performed By: #### L 501.5294 ####[facility] [address] [place], [address] CO2 [Moles/Vol] 17.3 mmol/L Low 21.0-32.0 [facility] Comment on above: Performed By: #### L 501.5294 ####[facility] [address] [place], [address] GAP 11 Normal 5-15 [facility] Comment on above: Performed By: #### L 501.5294 ####[facility] [address] [place], [place], [address] Potassium [Moles/Vol] 3.6 mmol/L Normal 3.3-5.1 [facility] Comment on above: Performed By: #### L 501.5294 ####[facility] [address] [place], [place], [address] Sodium [Moles/Vol] 130 mmol/L Low 133-145 [facility] Comment on above: Performed By: #### L 501.5294 ####[facility] [address] [place], [place], [address] Emergency Department Summary on 07-05-2025 Emergency Department Summary Normal [facility] Eosinophil percentageOrdered By: Abih Pina on 07-05-2025 Eosinophils/100 WBC (Bld) 0.9 % 0-5 [facility] Erythrocyte distribution wid th ratioOrdered By: Abhi Pina on 07-05-2025 Erythrocyte distribution width (RBC) [Ratio] 13.8 % 11.6-14.6 [facility] Erythrocyte distribution wid th standard deviationOrdered By: Abhi Pina on 07-05-2025 Erythrocyte distribution width (RBC) [Ratio] 48.8 fl High 35.1-43.9 [facility] Ferritinon 07-05-2025 Ferritin [Mass/Vol] 601 ng/mL High 22-378 [facility] Comment on above: Performed By: #### L 503.6550, L501.7300 ####[facility] [address] [place], [place], [address] Glomerular filtration rate ( GFR) estimation/1.73 sq m using serum, plasma, or whole bOrdered By: Abhi Pina on 07-05-2025 GFR/1.73 sq M.predicted among non-blacks MDRD (S/P/Bld) [Vol rate/Area] 32 mL/min/{1.73_m2} Low >60 [facility] Comment on above: mL/min/1.73m2 CKD-EP I Creatinine Equation (2020) [facility] deOrdered By: Shana Mendoza on 07-05-2025 Glucose [Mass/Vol] 265 mg/dL High 74-106 [facility] Comment on above: MANAGEMENT OF PATIEN T CARE PER NURSING PROTOCOL H AND P Exam - Hospitaliston 07-05-2025 H&P Exam - Hospitalist Normal [facility] Hematocrit Auto (Bld) [Volum e fraction]Ordered By: Abhi Pina on 07-05-2025 Hematocrit (Bld) [Volume fraction] 28.2 % Low 37-47 [facility] Hemoglobin measurementOrdere d By: Abhi Pina on 07-05-2025 Hemoglobin (Bld) [Mass/Vol] 9.5 g/dL Low 12.0-15.0 [facility] Immature granulocytes/100 WB C Auto (Bld)Ordered By: Abhi Pina on 07-05-2025 Immature granulocytes/100 WBC (Bld) 0.900 % 0.0-0.9 [facility] Comment on above: IG% - Immature Granu locytes (promyelocytes, myelocytes and metamyelocytes) > 1% indicates that a LEFT SHIFT is Present. Iron measurement (mass/mass) Ordered By: Shana Mendoza on 07-05-2025 Iron (Unsp spec) [Mass/Mass] 12 ug/dL Low 50-170 [facility] Ketones Test strip Ql (U)Ord ered By: Abhi Pina on 07-05-2025 Ketones Ql (U) Negative Negative [facility] Laboratory - Chemistry and C hemistry - challengeOrdered By: Abhi Pina on 07-05-2025 AST [Catalytic activity/Vol] 19 U/L <32 [facility] Lactic Acidon 07-05-2025 Lactate [Moles/Vol] 1.5 mmol/L Normal 0.0-2.0 [facility] Comment on above: Performed By: #### L 503.6005 ####[facility] [address] [place], [address] Lactate [Moles/Vol] 2.2 mmol/L Invalid Interpretation Code 0.0-2.0 [facility] Comment on above: Order Comment: Y Result Comment: Crit ical Result(s) Called at: 1907 by:??MIGUELITO CEDILLO Results read back by same. Performed By: #### L 503.6005, L100.0100, L500.4050 ####[facility] [address] [place], [place], [address] Lactic acid measurementOrder ed By: Abhi Pina on 07-05-2025 Lactate [Moles/Vol] 1.5 mmol/L 0.0-2.0 [facility] MCV (mean corpuscular volume ) determinationOrdered By: Abhi Pina on 07-05-2025 MCV (RBC) [Entitic vol] 95.9 fL 81-99 [facility] Magnesiumon 07-05-2025 Magnesium [Mass/Vol] 2.2 mg/dL Normal 1.5-2.2 [facility] Comment on above: Performed By: #### L 501.6901, L501.5200 ####[facility] [address] [place], [place], [id number] Magnesium measurement (mass/ volume)Ordered By: Abhi Pina on 07-05-2025 Magnesium (Unsp spec) [Mass/Vol] 2.2 mg/dL 1.5-2.2 [facility] Mean corpuscular hemoglobin (MCH) determinationOrdered By: Abhi Pina on 07-05-2025 MCH (RBC) [Entitic mass] 32.3 pg High 27.0-32.0 [facility] Mean corpuscular hemoglobin concentration (MCHC) determinationOrdered By: Abhiasha Pina on 07-05-2025 MCHC (RBC) [Mass/Vol] 33.7 g/dL 32-36 [facility] Mean platelet volume determi nationOrdered By: Abhi Pina on 07-05-2025 Platelet mean volume (Bld) [Entitic vol] 10.4 fL 6.2-12.0 [facility] Microscopic analysis of urin e for red blood cells (RBC)Ordered By: Abhi Pina on 07-05-2025 Microscopic analysis of urine for red blood cells (RBC) 5-10 SEEN /hpf 0-5 [facility] Monocyte percentageOrdered B y: Abhi Pina on 07-05-2025 Monocytes/100 WBC (Bld) 5.8 % 0-10 [facility] Mucus LM Ql (Urine sed)Order ed By: Abhi Pina on 07-05-2025 Mucus Ql (Urine sed) 0 SEEN /hpf [facility] Neutrophil percentageOrdered By: Abhi Pina on 07-05-2025 Neutrophils/100 WBC (Bld) 77.6 % High 47-70 [facility] Nitrite Test strip Ql (U)Ord ered By: Abhi Pina on 07-05-2025 Nitrite Ql (U) Negative Negative [facility] No Panel InformationOrdered By: Shana Mendoza on 07-05-2025 Unsaturated Iron Binding Capacity 154 ug/dL Low 228-428 [facility] 154 ug/dL Low 228-428 [facility] No Panel InformationOrdered By: Abhi Pina on 07-05-2025 Blood Gas Sample Site Not entered [facility] Blood Gas Specimen Type SHIRA [facility] Oxygen Delivery Device Not entered [facility] SHIRA [facility] Not entered [facility] Nucleated red blood cell per centageOrdered By: Abhi Pina on 07-05-2025 Nucleated RBC/100 WBC (Bld) [Ratio] 0 % 0-5 [facility] Osmolality, Serumon 07-05-20 25 OSMOLALITY,SER 307 mOsm/KG High 275-295 [facility] Comment on above: Performed By: #### L 503.6544, L501.7300 ####[facility] [address] [place], [place], [phone] Phosphoruson 07-05-2025 Phosphate [Mass/Vol] 3.0 mg/dL Normal 2.7-4.5 [facility] Comment on above: Performed By: #### L 285.1011 ####[facility] [address] [place], [place], [id number] Platelet countOrdered By: Min Pina on 07-05-2025 Platelets (Bld) [#/Vol] 136 10*3/uL Low 150-450 [facility] Potassium measurement (mass/ volume)Ordered By: Abhi Pina on 07-05-2025 Potassium (Unsp spec) [Mass/Vol] 3.6 mmol/L 3.3-5.1 [facility] Protein Test strip Ql (U)Ord ered By: Abhi Pina on 07-05-2025 Protein Ql (U) 30 mg/dl High Negative [facility] RBC Auto (Bld) [#/Vol]Ordere d By: Abhi Pina on 07-05-2025 RBC (Bld) [#/Vol] 2.94 10*6/uL Low 4.2-5.4 [facility] Serum creatinine measurement (mass/volume)Ordered By: Ahbi Pina on 07-05-2025 Creatinine [Mass/Vol] 1.98 mg/dL High 0.70-1.20 [facility] Serum globulin measurementOr dered By: Abhi Pina on 07-05-2025 Globulin (S) [Mass/Vol] 3.7 g/dL 2.2-4.2 [facility] Serum glucose measurement (m ass/volume)Ordered By: Abhi Pina on 07-05-2025 Glucose [Mass/Vol] 533 mg/dL High 70-99 [facility] Comment on above: Critical Result(s) C alled at: 1907 by: MIGUELITO CEDILLO Results read back by same. Serum or plasma alanine arizmendi otransferase (ALT) measurementOrdered By: Abih Pina on 07-05-2025 ALT [Catalytic activity/Vol] 26 U/L <35 [facility] Serum or plasma albumin sharron urement (mass/volume)Ordered By: Abhi Pina on 07-05-2025 Albumin [Mass/Vol] 3.3 g/dL Low 3.5-5.0 [facility] Serum or plasma albumin/glob ulin mass ratioOrdered By: Abhiasha Pina on 07-05-2025 Albumin/Globulin [Mass ratio] 0.9 {ratio} 0.9-2.4 [facility] Serum or plasma alkaline toyin sphatase measurementOrdered By: Abhi Pina on 07-05-2025 ALP [Catalytic activity/Vol] 183 U/L High 35-104 [facility] Serum or plasma calcium sharron urement (mass/volume)Ordered By: Abhi Pina on 07-05-2025 Calcium [Mass/Vol] 8.3 mg/dL 7.6-11.0 [facility] Serum or plasma ferritin jacob surement (mass/volume)Ordered By: Shana Mendoza on 07-05-2025 Ferritin [Mass/Vol] 601 ng/mL High 22-378 [facility] Serum or plasma iron saturat ion measurement (mass fraction)Ordered By: Shana Mendoza on 07-05-2025 Iron saturation [Mass fraction] 7.2 % Low 13-59 [facility] Comment on above: Previous reported re sult: 7.0 %Edited by: LIS on 07/06/25:0028 AMENDED REPORT 07/06/25 0028 IRON SATURATION previously reported as: 7.0 L % TIBC DID NOT CROSS OVER FROM [employer] Serum or plasma urea nitroge n measurement (mass/volume)Ordered By: Abhi Pina on 07-05-2025 Urea nitrogen [Mass/Vol] 41 mg/dL High 4-19 [facility] Sodium levelOrdered By: Abhi Pina on 07-05-2025 Sodium [Moles/Vol] 130 mmol/L Low 133-145 [facility] Squamous epithelial cells de tection in urine sediment by light microscopyOrdered By: Abhi Pina on 07-05-2025 Epithelial cells.squamous LM Ql (Urine sed) 5-10 SEEN /hpf 5-10 [facility] Total proteinOrdered By: Abhi Pina on 07-05-2025 Protein [Mass/Vol] 7.1 g/dL 5.9-8.4 [facility] Urinalysis, Completeon 07-05 BACTERIA 3+ /hpf Normal None Seen [facility] Comment on above: Order Comment: CLEAN CATCH Performed By: #### L 400.0001 ####[facility] [address] [place], [place], [phone] EPI,SQUAMOUS 5-10 SEEN Normal 5-10 [facility] Comment on above: Order Comment: CLEAN CATCH Performed By: #### L 400.0001 ####[facility] [address] [place], [address] RBC 5-10 SEEN Normal 0-5 [facility] Comment on above: Order Comment: CLEAN CATCH Performed By: #### L 400.0001 ####[facility] [address] [place], [address] WBC 10-25 SEEN Normal 0-5 [facility] Comment on above: Order Comment: CLEAN CATCH Performed By: #### L 400.0001 ####[facility] [address] [place], [address] Mucus Ql (Urine sed) 0 SEEN Normal [facility] Comment on above: Order Comment: CLEAN CATCH Performed By: #### L 400.0001 ####[facility] [address] [place], [place], [phone] Urine clarityOrdered By: Abhi Pina on 07-05-2025 Clarity (U) Sl. Cloudy Clear [facility] Urine color determinationOrd ered By: Abhi Pina on 07-05-2025 Color (U) Straw Yellow [facility] Urine cultureOrdered By: Abhi Pina on 07-05-2025 Bacteria identified Cx Nom (U) Escherichia coli Abnormal [facility] Urine glucose detectionOrder ed By: Abhi Pina on 07-05-2025 Glucose Ql (U) 1000 mg/dl High Normal [facility] Urine leukocyte esterase det ection by dipstickOrdered By: Abhi Pina on 07-05-2025 Leukocyte esterase Test strip Ql (U) 100 /ul High Negative [facility] Urine pHOrdered By: Abhi barry on 07-05-2025 pH (U) 6.0 [pH] 5.0 - 8.0 [facility] Urine sediment bacteria coun t by microscopy (number/high power field)Ordered By: Abhi Pina on 07-05-2025 Bacteria LM.HPF (Urine sed) [#/Area] 3 /[HPF] None Seen [facility] Urine specific gravity measu rementOrdered By: Abhi Pina on 07-05-2025 Specific gravity (U) [Rel density] 1.010 1.002-1.030 [facility] Urine urobilinogen measureme ntOrdered By: Abhi Pina on 07-05-2025 Urobilinogen Ql (U) Normal mg/dl Normal [facility] Venous Blood Gason Blood Gas Type SHIRA Normal [facility] Comment on above: Performed By: #### L 9000.0810 ####[facility] [address] [place], [address] CO2 [Moles/Vol] 17 mmol/L Low 23-33 [facility] Comment on above: Performed By: #### L 9000.0810 ####[facility] [address] [place], [address] HCO3 (Bld) [Moles/Vol] 16 mmol/L Low 22-26 [facility] Comment on above: Performed By: #### L 9000.0810 ####[facility] [address] [place], [address] O2 Delivery Dev Not entered [facility] Comment on above: Performed By: #### L 9000.0810 ####[facility] [address] [place], [address] SITE Not entered Normal [facility] Comment on above: Performed By: #### L 9000.0810 ####[facility] [address] [place], [address] VBG BE -10 mmol/L Low -1.0-3.5 [facility] Comment on above: Performed By: #### L 9000.0810 ####[facility] [address] [place], [address] VBG pCO2 31.6 mmHg Low 41-51 [facility] Comment on above: Performed By: #### L 9000.0810 ####[facility] [address] [place], [place], [address] VBG pH 7.32 Normal 7.32-7.42 [facility] Comment on above: Performed By: #### L 9000.0810 ####[facility] [address] [place], [place], [address] VBG PO2 77 mmHg High 25-40 [facility] Comment on above: Performed By: #### L 9000.0810 ####[facility] [address] [place], [place], [address] VBG SO2 94 High 50-70 [facility] Comment on above: Performed By: #### L 9000.0810 ####[facility] [address] [place], [place], [id number] Venous blood base excess jacob surementOrdered By: Abhi Pina on 07-05-2025 Base excess Calc (BldV) [Moles/Vol] -10 mmol/L Low -1.0-3.5 [facility] Venous blood bicarbonate jacob surementOrdered By: Abhi Pina on 07-05-2025 HCO3 (Bld) [Moles/Vol] 16 mmol/L Low 22-26 [facility] Venous blood oxygen saturati on measurementOrdered By: Abhi Pina on 07-05-2025 Oxygen saturation in Blood 94 % High 50-70 [facility] Venous blood pH measurementO rdered By: Abih Pina on 07-05-2025 pH (BldV) 7.32 [pH] 7.32-7.42 [facility] Venous blood partial pressur e of carbon dioxide measurementOrdered By: Abhi Pina on 07-05-2025 CO2 (BldV) [Partial pressure] 31.6 mm[Hg] Low 41-51 [facility] Venous blood partial pressur e of oxygen measurementOrdered By: Abhi Pina on 07-05-2025 Oxygen (BldV) [Partial pressure] 77 mm[Hg] High 25-40 [facility] White blood cell (WBC) count Ordered By: Abhi Pina on 07-05-2025 WBC (Bld) [#/Vol] 6.9 10*3/uL 4.4-11.0 [facility] White blood cell countOrdere d By: Abhi Pina on 07-05-2025 White blood cell count 10-25 SEEN /hpf 0-5 [facility] Orthopedic Visit Reporton Orthopedic Visit Report Normal [facility] Bedside Glucoseon 06-23-2025 FINGERSTICK GLU 210 mg/dL High 74-106 [facility] Comment on above: Result Comment: [place] OF PATIENT CARE PER NURSING PROTOCOL Performed By: #### L 501.080 ####[facility] [address] [place], [address] Discharge Instructionon 06-05 Discharge Instruction Normal [facility] deOrdered By: Brett Quiroga on 06-23-2025 Glucose [Mass/Vol] 210 mg/dL High 74-106 [facility] Comment on above: MANAGEMENT OF PATIEN T CARE PER NURSING PROTOCOL MR/POSTOP.ANEon 06-23-2025 MR/POSTOP.ANE Normal [facility] Operative Reporton Operative Report Normal [facility] ,Urineon 06-23-2025 Beta HCG ( test) Ql (U) Negative Normal [facility] Comment on above: Result Comment: Very dilute urine specimens, as indicated by a low specificgravity, may not contain customer service representative levels of hCG.If is still suspected, a first morning urinespecimen should be collected 48 hours later and tested. Performed By: #### L 400.7600 ####[facility] [address] [place], [address] Urine testOrdered By: Woody Choudhary on 06-23-2025 HCG ( test) Ql (U) Negative [facility] Comment on above: Very dilute urine sp ecimens, as indicated by a low specificgravity, may not contain customer service representative levels of hCG. If is still suspected, a first morning urinespecimen should be collected 48 hours later and tested. Chiropractic Reporton 2024 Chiropractic Report Normal [facility] MR/PAT.ANEon 06-15-2025 MR/PAT.ANE Normal [facility] Electrocardiogram reportOrde red By: Vin Montes on 06-11-2025 EKG study [facility] Cardiovascular Services [address] [place] [address] 12 Lead EKG 06/10/25 1247 MR#: [id number] Acct: [id number] Name: TORI GRAY Rep #:[id number] : 1980 44 From: Vin Montes MD Attending Dr: Dr. Brett Quiroga MD Status: [place] [facility] [place] Dr: Woody Choudhary MD Date: Location: [facility] Sex: F C Admitted: Test Reason : [...] ECG Confirmed by JYOTI SHEARER, VIN ([id number]), editor in chief newspaper PRISCILA FERRERA ([id number]) on 06/11/2025 5:54:48 AM Referred By: Brett Quiroga Confirmed By: VIN MONTES MD 06/11/25 0554 Date _ Vin Montes MD CC: Dr. Woody Choudhary MD; Dr. Brett Quiroga MD; Dr. Ivette Grimes MD ~ Signed [facility] Work Phone: 12 Lead EKGon 06-10-2025 12 Lead EKG Normal [facility] LDL CHOLESTEROL DIRECT (FOR REMOTE [facility] USE)on 06-10-2025 [facility] LDL, Directon 06-10-2025 Cholesterol in LDL [Mass/Vol] 96 mg/dL Normal 0-99 [facility] Comment on above: Result Comment: Perf ormed at: CB - [facility] [address] [place], [place] [id number] Director: José Antonio Aldana PhD, Phone: [phone] Performed By: #### L 3300.4490, L548.9967 ####[facility] [address] [place], [place], [address] COMMENT TNP Normal . [facility] Comment on above: Performed By: #### L 3300.4490, L501.9985 ####[facility] [address] [place], [place], [id number] [facility] TORI GRAY ([id number]) 1980 F Date Time Provider Department 06/09/25 [facility] During your visit today, we recorded the following information about you: Nirmala Storey LPN 06/09/2025 10:21 AM Signed HgbA1C from [facility] 7.4 Ivette Grimes MD 06/09/2025 10:49 [...] microalbuminuria, with long-term current use of insulin ([facility]) [E11.29, R80.9, Z79.4] Order(s):HBA1C (OUTSIDE) [2610401] Order #: [id number] semaglutide (OZEMPIC) 2 mg/dose (8 mg/3 mL) pen injectorInject 2 mg subcutaneously one time a week.Disp: 3 mLRfl: 5 LDL CHOLESTEROL DIRECT (FOR REMOTE [facility] USE) [SQRLDL] Order #: [id number] Prescriptions as of 06/18/2025 - omeprazole (PRILOSEC) [...] tablet by mouth once daily. - Ipratropium Hadley (ATROVENT) 21 mcg (0.03 %) nasal spray [...] DM - Controlled E11.9 Insulin: No - Cosvuhie-Sm-Ozw-Fe- FA tab Take 1 tablet by mouth [...] general medical examination at a [facility]*01/23/2010 12/06/2012 Class: Chronic Routine gynecological [...] [S80.00XA] 09/04/2022 09/04/2022 Essential (primary) hypertension [I10] 10 (more content not included)... Normal [facility] Cholesterol in LDL Direct as say [Mass/Vol]Ordered By: Ivette Grimes on 06-09-2025 Cholesterol in LDL [Mass/Vol] 96 mg/dL 0-99 [facility] Comment on above: Performed at: [place] [id number] Director: José Antonio Aldana PhD, Phone: [phone] HBA1C (OUTSIDE)on 06-09-2025 [facility] Hemoglobin A1con 06-09-2025 HbA1c (Bld) [Mass fraction] 7.4 % High <=5.6 [facility] Comment on above: Result Comment: Norm al < 5.7 % Prediabetic 5.7 - 6.4 % Diabetic >or= 6.5 % Please note range changes. Performed By: #### L 3300.5770, L501.9934 ####[facility] [address] [place], [address] Hemoglobin A1c percentageOrd ered By: Ivette Grimes on 06-09-2025 HbA1c (Bld) [Mass fraction] 7.4 % High <5.7 [facility] Comment on above: Normal < 5.7 % Predi abetic 5.7 - 6.4 % Diabetic >or= 6.5 % Please note range changes. Laboratory - Miscellaneous t estsOrdered By: Ivette Grimes on 06-09-2025 Service comment (Unsp spec) [Interp] TNP [facility] Comment on above: Test not performed CNOVon 06-07-2025 [facility] TORI GRAY ([id number]) 1980 F Date Time Provider Department 06/07/25 6:40 PM IVETTE GRIMES [facility] During your visit today, we [...] with Dr. Quiroga on June 23 at [facility]. - Keep your neurology appointment on [...] Grimes MD 06/07/2025 7:06 PM Signed Tori Love Isaac is a 44-year-old female with a history [...] for June [address] Quiroga at [facility]. - Follow-up appointment with Dr. Camacho for [...] 1 tablet by mouth once daily. Ipratropium Hadley (ATROVENT) 21 mcg (0.03 %) nasal spray [...] 1 Each by INTRAUTERINE route as directed. Dzdkfzqs-Rc-Yjn-Fe- FA tab Take 1 tablet by mouth [...] blood sugar(s) (more content not included)... Normal [facility] Absolute lymphocyte countOrd ered By: HEALTH ASSESSMENT on 06-05-2025 Lymphocytes Auto (Unsp spec) [#/Vol] 2.43 10*3/uL 0.83-4.51 [facility] Absolute neutrophil countOrd ered By: HEALTH ASSESSMENT on 06-05-2025 Neutrophils (Bld) [#/Vol] 6.3 10*3/uL 2.0-7.7 [facility] Absolute nucleated red blood cell countOrdered By: HEALTH ASSESSMENT on 06-05-2025 Nucleated RBC (Bld) [#/Vol] 0.00 10*3/uL 0-5 [facility] Anion gap in Serum or Plasma Ordered By: HEALTH ASSESSMENT on 06-05-2025 Anion gap [Moles/Vol] 14 mmol/L 5-15 [facility] BUN/creatinine ratioOrdered By: HEALTH ASSESSMENT on 06-05-2025 Urea nitrogen/Creatinine [Mass ratio] 10.6 mg/mg 10-20 [facility] Bilirubin Test strip Ql (U)O rdered By: HEALTH ASSESSMENT on 06-05-2025 Bilirubin Ql (U) Negative Negative [facility] Bilirubin directOrdered By: HEALTH ASSESSMENT on 06-05-2025 Bilirubin.direct [Mass/Vol] 0.20 mg/dL 0.00-0.30 [facility] Bilirubin, totalOrdered By: HEALTH ASSESSMENT on 06-05-2025 Bilirubin [Mass/Vol] 0.51 mg/dL 0.00-1.30 [facility] CBC, Employeeon 06-05-2025 Absolute Lymph 2.43 X10 3/uL Normal 0.83-4.51 [facility] Comment on above: Performed By: #### L 400.0100, L100.0200, L500.2900 ####[facility] [address] [place], [address] Absolute Neut 6.3 X10 3/uL Normal 2.0-7.7 [facility] Comment on above: Performed By: #### L 400.0100, L100.0200, L500.2900 ####[facility] [address] [place], [address] Basophils/100 WBC (Bld) 0.9 % Normal 0-1 [facility] Comment on above: Performed By: #### L 400.0100, L100.0200, L500.2900 ####[facility] [address] [place], [address] Eosinophils/100 WBC (Bld) 1.8 % Normal 0-5 [facility] Comment on above: Performed By: #### L 400.0100, L100.0200, L500.2900 ####[facility] [address] [place], [address] Erythrocyte distribution width (RBC) [Ratio] 14.5 % Normal 11.6-14.6 [facility] Comment on above: Performed By: #### L 400.0100, L100.0200, L500.2900 ####[facility] [address] [place], [address] Hematocrit (Bld) [Volume fraction] 39.2 % Normal 37-47 [facility] Comment on above: Performed By: #### L 400.0100, L100.0200, L500.2900 ####[facility] [address] [place], [address] Hemoglobin (Bld) [Mass/Vol] 13.5 g/dL Normal 12.0-15.0 [facility] Comment on above: Performed By: #### L 400.0100, L100.0200, L500.2900 ####[facility] [address] [place], [address] Lymphocytes/100 WBC (Bld) 25.5 % Normal 19-41 [facility] Comment on above: Performed By: #### L 400.0100, L100.0200, L500.2900 ####[facility] [address] [place], [address] MCH (RBC) [Entitic mass] 32.4 pg High 27.0-32.0 [facility] Comment on above: Performed By: #### L 400.0100, L100.0200, L500.2900 ####[facility] [address] [place], [address] MCHC (RBC) [Mass/Vol] 34.4 g/dL Normal 32-36 [facility] Comment on above: Performed By: #### L 400.0100, L100.0200, L500.2900 ####[facility] [address] [place], [address] MCV (RBC) [Entitic vol] 94.0 fL Normal 81-99 [facility] Comment on above: Performed By: #### L 400.0100, L100.0200, L500.2900 ####[facility] [address] [place], [address] Monocytes/100 WBC (Bld) 3.6 % Normal 0-10 [facility] Comment on above: Performed By: #### L 400.0100, L100.0200, L500.2900 ####[facility] [address] [place], [address] Neutrophils/100 WBC (Bld) 66.2 % Normal 47-70 [facility] Comment on above: Performed By: #### L 400.0100, L100.0200, L500.2900 ####[facility] [address] [place], [address] NRBC # 0.00 10 3/uL Normal 0-5 [facility] Comment on above: Performed By: #### L 400.0100, L100.0200, L500.2900 ####[facility] [address] [place], [address] Nucleated RBC (Bld) [#/Vol] 0 10*3/uL Normal 0-5 [facility] Comment on above: Performed By: #### L 400.0100, L100.0200, L500.2900 ####[facility] [address] [place], [address] Platelet mean volume (Bld) [Entitic vol] 9.6 fL Normal 6.2-12.0 [facility] Comment on above: Performed By: #### L 400.0100, L100.0200, L500.2900 ####[facility] [address] [place], [address] Platelets (Bld) [#/Vol] 192 10*3/uL Normal 150-450 [facility] Comment on above: Performed By: #### L 400.0100, L100.0200, L500.2900 ####[facility] [address] [place], [address] RBC (Bld) [#/Vol] 4.17 10*6/uL Low 4.2-5.4 [facility] Comment on above: Performed By: #### L 400.0100, L100.0200, L500.2900 ####[facility] [address] [place], [address] RDW SD 49.7 fl High 35.1-43.9 [facility] Comment on above: Performed By: #### L 400.0100, L100.0200, L500.2900 ####[facility] [address] [place], [address] WBC (Bld) [#/Vol] 9.5 10*3/uL Normal 4.4-11.0 [facility] Comment on above: Performed By: #### L 400.0100, L100.0200, L500.2900 ####[facility] [address] [place], [address] Calculated very low density lipoprotein (VLDL) cholesterol measurementOrdered By: HEALTH ASSESSMENT on 06-05-2025 Calculated very low density lipoprotein (VLDL) cholesterol measurement 62 mg/dL High 5-40 [facility] Carbon dioxide, total [Moles /volume] in Central venous bloodOrdered By: HEALTH ASSESSMENT on 06-05-2025 CO2 [Moles/Vol] 17.5 mmol/L Low 21.0-32.0 [facility] Chloride assayOrdered By: HE ALTH ASSESSMENT on 06-05-2025 Chloride [Moles/Vol] 105 mmol/L 98-108 [facility] Employee Profileon LDH 188 U/L Normal 84-246 [facility] Comment on above: Performed By: #### L 400.0100, L100.0200, L500.2900 ####[facility] [address] [place], [address] Phosphate [Mass/Vol] 2.2 mg/dL Low 2.7-4.5 [facility] Comment on above: Performed By: #### L 400.0100, L100.0200, L500.2900 ####[facility] [address] [place], [address] URIC 6.9 mg/dL High 2.6-6.0 [facility] Comment on above: Result Comment: The drugs N-Acetylcysteine and Metamizole may falselydepress this assay. Performed By: #### L 400.0100, L100.0200, L500.2900 ####[facility] [address] [place], [address] Erythrocyte distribution wid th ratioOrdered By: HEALTH ASSESSMENT on 06-05-2025 Erythrocyte distribution width (RBC) [Ratio] 14.5 % 11.6-14.6 [facility] Erythrocyte distribution wid th standard deviationOrdered By: HEALTH ASSESSMENT on 06-05-2025 Erythrocyte distribution width (RBC) [Ratio] 49.7 fl High 35.1-43.9 [facility] Glomerular filtration rate ( GFR) estimation/1.73 sq m using serum, plasma, or whole bOrdered By: HEALTH ASSESSMENT on 06-05-2025 GFR/1.73 sq M.predicted among non-blacks MDRD (S/P/Bld) [Vol rate/Area] 94 mL/min/{1.73_m2} >60 [facility] Comment on above: mL/min/1.73m2 CKD-EP I Creatinine Equation (2020) Hematocrit Auto (Bld) [Volum e fraction]Ordered By: HEALTH ASSESSMENT on 06-05-2025 Hematocrit (Bld) [Volume fraction] 39.2 % 37-47 [facility] Hemoglobin measurementOrdere d By: HEALTH ASSESSMENT on 06-05-2025 Hemoglobin (Bld) [Mass/Vol] 13.5 g/dL 12.0-15.0 [facility] Ketones Test strip Ql (U)Ord ered By: HEALTH ASSESSMENT on 06-05-2025 Ketones Ql (U) Negative Negative [facility] LDL calc ser/plasOrdered By: HEALTH ASSESSMENT on 06-05-2025 Cholesterol in LDL [Mass/Vol] 92 mg/dL [facility] Comment on above: Kejyfjrszn=088-917 m g/dL & Higher Oeid=348 mg/dL or greaterFriedwald Equation for LDL-C Laboratory - Chemistry and C hemistry - challengeOrdered By: HEALTH ASSESSMENT on 06-05-2025 AST [Catalytic activity/Vol] 41 U/L High <32 [facility] Lactate dehydrogenase (LDH) measurementOrdered By: HEALTH ASSESSMENT on 06-05-2025 LDH [Catalytic activity/Vol] 188 U/L 84-246 [facility] MCV (mean corpuscular volume ) determinationOrdered By: HEALTH ASSESSMENT on 06-05-2025 MCV (RBC) [Entitic vol] 94.0 fL 81-99 [facility] Mean corpuscular hemoglobin (MCH) determinationOrdered By: HEALTH ASSESSMENT on 06-05-2025 MCH (RBC) [Entitic mass] 32.4 pg High 27.0-32.0 [facility] Mean corpuscular hemoglobin concentration (MCHC) determinationOrdered By: HEALTH ASSESSMENT on 06-05-2025 MCHC (RBC) [Mass/Vol] 34.4 g/dL 32-36 [facility] Mean platelet volume determi nationOrdered By: HEALTH ASSESSMENT on 06-05-2025 Platelet mean volume (Bld) [Entitic vol] 9.6 fL 6.2-12.0 [facility] Neutrophil percentageOrdered By: HEALTH ASSESSMENT on 06-05-2025 Neutrophils/100 WBC (Bld) 66.2 % 47-70 [facility] Nitrite Test strip Ql (U)Ord ered By: HEALTH ASSESSMENT on 06-05-2025 Nitrite Ql (U) Negative Negative [facility] No Panel InformationOrdered By: HEALTH ASSESSMENT on 06-05-2025 41 U/L High <32 [facility] Nucleated red blood cell per centageOrdered By: HEALTH ASSESSMENT on 06-05-2025 Nucleated RBC/100 WBC (Bld) [Ratio] 0 % 0-5 [facility] Platelet countOrdered By: HE ALTH ASSESSMENT on 06-05-2025 Platelets (Bld) [#/Vol] 192 10*3/uL 150-450 [facility] Potassium measurement (mass/ volume)Ordered By: HEALTH ASSESSMENT on 06-05-2025 Potassium (Unsp spec) [Mass/Vol] 4.0 mmol/L 3.3-5.1 [facility] Protein Test strip Ql (U)Ord ered By: HEALTH ASSESSMENT on 06-05-2025 Protein Ql (U) 100 mg/dl High Negative [facility] RBC Auto (Bld) [#/Vol]Ordere d By: HEALTH ASSESSMENT on 06-05-2025 RBC (Bld) [#/Vol] 4.17 10*6/uL Low 4.2-5.4 [facility] Screening total cholesterol/ high density lipoprotein (HDL) cholesterol ratioOrdered By: HEALTH ASSESSMENT on 06-05-2025 Cholesterol.total/Choles terol in HDL [Mass ratio] 5.63 {ratio} [facility] Serum creatinine measurement (mass/volume)Ordered By: HEALTH ASSESSMENT on 06-05-2025 Creatinine [Mass/Vol] 0.80 mg/dL 0.70-1.20 [facility] Serum globulin measurementOr dered By: HEALTH ASSESSMENT on 06-05-2025 Globulin (S) [Mass/Vol] 3.3 g/dL 2.2-4.2 [facility] Serum glucose measurement (m ass/volume)Ordered By: HEALTH ASSESSMENT on 06-05-2025 Glucose [Mass/Vol] 210 mg/dL High 70-99 [facility] Serum or plasma alanine arizmendi otransferase (ALT) measurementOrdered By: HEALTH ASSESSMENT on 06-05-2025 ALT [Catalytic activity/Vol] 43 U/L High <35 [facility] Serum or plasma albumin sharron urement (mass/volume)Ordered By: HEALTH ASSESSMENT on 06-05-2025 Albumin [Mass/Vol] 4.2 g/dL 3.5-5.0 [facility] Serum or plasma albumin/glob ulin mass ratioOrdered By: HEALTH ASSESSMENT on 06-05-2025 Albumin/Globulin [Mass ratio] 1.3 {ratio} 0.9-2.4 [facility] Serum or plasma alkaline toyin sphatase measurementOrdered By: HEALTH ASSESSMENT on 06-05-2025 ALP [Catalytic activity/Vol] 84 U/L 35-104 [facility] Serum or plasma calcium sharron urement (mass/volume)Ordered By: HEALTH ASSESSMENT on 06-05-2025 Calcium [Mass/Vol] 8.8 mg/dL 7.6-11.0 [facility] Serum or plasma cholesterol in HDL measurement (mass/volume)Ordered By: HEALTH ASSESSMENT on 06-05-2025 Cholesterol in HDL [Mass/Vol] 33 mg/dL Low >40 [facility] Comment on above: National Cholesterol Education Program (NCEP) guidelines:<40 mg/dL: Low HDL-cholesterol (major risk factor for CHD)>= 60 mg/dL: High HDL-cholesterol (negative risk factor for CHD)HDL-cholesterol is affected by a number of factors, e.g. smoking, exercise, hormones, sex and age. Serum or plasma cholesterol measurement (mass/volume)Ordered By: HEALTH ASSESSMENT on 06-05-2025 Cholesterol [Mass/Vol] 187 mg/dL <201 [facility] Comment on above: Cholesterol level, D esirable <200 mg/dLBorderline high cholesterol 200-239 mg/dLHigh cholesterol >=240 mg/dLRecommendations of the NCEP Adult Treatment Panel for the following risk-cutoff thresholds for the [place] population. Serum or plasma urea nitroge n measurement (mass/volume)Ordered By: HEALTH ASSESSMENT on 06-05-2025 Urea nitrogen [Mass/Vol] 9 mg/dL 4-19 [facility] Serum or plasma uric acid me asurement (mass/volume)Ordered By: HEALTH ASSESSMENT on 06-05-2025 Urate [Mass/Vol] 6.9 mg/dL High 2.6-6.0 [facility] Comment on above: The drugs N-Acetylcy steine and Metamizole may falsely depress this assay. Sodium levelOrdered By: [facility] ASSESSMENT on 06-05-2025 Sodium [Moles/Vol] 137 mmol/L 133-145 [facility] Total proteinOrdered By: [facility] ASSESSMENT on 06-05-2025 Protein [Mass/Vol] 7.5 g/dL 5.9-8.4 [facility] Triglycerides measurementOrd ered By: HEALTH ASSESSMENT on 06-05-2025 Triglyceride [Mass/Vol] 310 mg/dL High <199 [facility] Comment on above: The drugs N-Acetylcy steine and Metamizole may falsely depress this assay. Normal range: <150 mg/dLBorderline High: 150-199 mg/dLHigh: 200-499 mg/dLVery High: >500 mg/dL Urinalysis, Employeeon 06-05 BILIRUBIN URINE Negative Normal Negative [facility] Comment on above: Order Comment: Urine , Random Performed By: #### L 400.0100, L100.0200, L500.2900 ####[facility] [address] [place], [address] Clarity (U) Sl. Cloudy Normal Clear [facility] Comment on above: Order Comment: Urine , Random Performed By: #### L 400.0100, L100.0200, L500.2900 ####[facility] [address] [place], [address] Color (U) Yellow Normal Yellow [facility] Comment on above: Order Comment: Urine , Random Performed By: #### L 400.0100, L100.0200, L500.2900 ####[facility] [address] [place], [address] GLUCOSE, UR Normal Normal Normal [facility] Comment on above: Order Comment: Urine , Random Performed By: #### L 400.0100, L100.0200, L500.2900 ####[facility] [address] [place], [address] KETONE UR Negative Normal Negative [facility] Comment on above: Order Comment: Urine , Random Performed By: #### L 400.0100, L100.0200, L500.2900 ####[facility] [address] [place], [address] LEUK ESTERASE 500 /ul Abnormal Negative [facility] Comment on above: Order Comment: Urine , Random Performed By: #### L 400.0100, L100.0200, L500.2900 ####[facility] [address] [place], [address] Nitrite Ql (U) Negative Normal Negative [facility] Comment on above: Order Comment: Urine , Random Performed By: #### L 400.0100, L100.0200, L500.2900 ####[facility] [address] [place], [address] OCCULT BLOOD-UR 25 /ul Abnormal Negative [facility] Comment on above: Order Comment: Urine , Random Performed By: #### L 400.0100, L100.0200, L500.2900 ####[facility] [address] [place], [address] pH UR 6.0 Normal 5.0 - 8.0 [facility] Comment on above: Order Comment: Urine , Random Performed By: #### L 400.0100, L100.0200, L500.2900 ####[facility] [address] [place], [address] PROT DIPSTX 100 mg/dl Abnormal Negative [facility] Comment on above: Order Comment: Urine , Random Performed By: #### L 400.0100, L100.0200, L500.2900 ####[facility] [address] [place], [address] SP.GR. DIPSTX 1.015 Normal 1.002-1.030 [facility] Comment on above: Order Comment: Urine , Random Performed By: #### L 400.0100, L100.0200, L500.2900 ####[facility] [address] [place], [address] UROBILI Normal Normal Normal [facility] Comment on above: Order Comment: Urine , Random Performed By: #### L 400.0100, L100.0200, L500.2900 ####[facility] [address] [place], [address] Urine clarityOrdered By: CARLEEN [facility] ASSESSMENT on 06-05-2025 Clarity (U) Sl. Cloudy Clear [facility] Urine color determinationOrd ered By: HEALTH ASSESSMENT on 06-05-2025 Color (U) Yellow Yellow [facility] Urine glucose detectionOrder ed By: HEALTH ASSESSMENT on 06-05-2025 Glucose Ql (U) Normal mg/dl Normal [facility] Urine leukocyte esterase det ection by dipstickOrdered By: HEALTH ASSESSMENT on 06-05-2025 Leukocyte esterase Test strip Ql (U) 500 /ul High Negative [facility] Urine pHOrdered By: HEALTH A SSESSMENT on 06-05-2025 pH (U) 6.0 [pH] 5.0 - 8.0 [facility] Urine specific gravity measu rementOrdered By: HEALTH ASSESSMENT on 06-05-2025 Specific gravity (U) [Rel density] 1.015 1.002-1.030 [facility] Urine urobilinogen measureme ntOrdered By: HEALTH ASSESSMENT on 06-05-2025 Urobilinogen Ql (U) Normal mg/dl Normal [facility] White blood cell (WBC) count Ordered By: HEALTH ASSESSMENT on 06-05-2025 WBC (Bld) [#/Vol] 9.5 10*3/uL 4.4-11.0 [facility] Chiropractic Reporton 2024 Chiropractic Report Normal [facility] Orthopedic Visit Reporton Orthopedic Visit Report Normal [facility] Chiropractic Reporton 2024 Chiropractic Report Normal [facility] Magnetic resonance imaging r eportOrdered By: Salazar Tyson on 04-19-2025 Study report [facility] Imaging Services [address] [place] [address] Upper Ext Joint Only(Routine) MR#: [id number] Acct: [id number] Name: GRAYROSIECHELSEY KELLY Rep #: [id number] : 1980 F 44 From: Moncho Tyson MD PCP: Dr. Ivette Grimes MD Status: GERMAIN CURTIS Study:Upper Ext Joint Only(Routine) Date of Exam: 04/17/25 Exam# [id number] Ordering Dr: Brett Quiroga MD PROCEDURE: UPPER [...] Quiroga MD; Dr. Ivette Grimes MD ~ First Cook: Signed [facility] Upper Ext Joint Only(Routine )on 04-17-2025 Upper Ext Joint Only(Routine) Normal [facility] GRAYTORI ([id number]) 1980 F Date Time Provider Department 04/07/25 [...] tablet by mouth once daily. - Ipratropium Hadley (ATROVENT) 21 mcg (0.03 %) nasal spray [...] Each by INTRAUTERINE route as directed. - [place]-3 Fatty Acids (FISH OIL) 500 mg cap Take 1 capsule by mouth once daily. - blood sugar diagnostic (BLOOD GLUCOSE TEST) test strip Test blood sugar(s) 1 times daily. Dx: Type 2 DM - Controlled E11.9 Insulin: Yes - Lancets lancets Test blood sugar(s) 1 times daily. Dx: Type 2 DM - Controlled E11.9 Insulin: No - Jfnvuouk-Lj-Gzu-Fe- FA tab Take 1 tablet by mouth [...] 05/06/2009 01/23/2010 Routine general medical examination at [facility]*01/23/2010 12/06/2012 Class: Chronic Routine gynecological examination [Z01.419] 01/23/2010 02/22/2014 Class: Chronic Morbid Obesity [E66.01] 01/23/2010 Lumbar Disc Disorder [M51.9] 02/16/2010 Routine general medical examination at [facility]*12/06/2012 02/22/2014 Anxiety [F41.9] 06/07/2014 Type 2 [...] 09/04/2022 09/04/2022 (more content not included)... Normal [facility] Chiropractic Reporton 2024 Chiropractic Report Normal [facility] CNPNon 04-01-2025 CNPN Telephone (NEMAMN) ---- TORI GRAY ([id number]) 1980 F Date Time Provider Department 04/01/25 [facility]DA [facility]AGA [facility] During your visit today, we recorded the following information about you: Nakia Caraballo RN 04/01/2025 12:47 PM Signed Botox approved until 11/03/25. Patient and scheduling made aware. She is a patient of [employer] but due to her being out on [...] tablet by mouth once daily. - Ipratropium Hadley (ATROVENT) 21 mcg (0.03 %) nasal spray [...] Each by INTRAUTERINE route as directed. - [place]-3 Fatty Acids (FISH OIL) 500 mg cap Take 1 capsule by mouth once daily. - blood sugar diagnostic (BLOOD GLUCOSE TEST) test strip Test blood sugar(s) 1 times daily. Dx: Type 2 DM - Controlled E11.9 Insulin: Yes - Lancets lancets Test blood sugar(s) 1 times daily. Dx: Type 2 DM - Controlled E11.9 Insulin: No - Rfzhpryn-Kf-Puh-Fe- FA tab Take 1 tablet by mouth [...] 05/06/2009 01/23/2010 Routine general medical examination at [facility]*01/23/2010 12/06/2012 Class: Chronic Routine gynecological examination [Z01.419] 01/23/2010 02/22/2014 Class: Chronic Morbid Obesity [E66.01] 01/23/2010 Lumbar Disc Disorder [M51.9] 02/16/2010 Routine general medical examination at [facility]*12/06/2012 02/22/2014 Anxiety [F41.9] 06/07/2014 Type 2 [...] mellitus [Z86.39] (more content not included)... Normal [facility] Chiropractic Reporton 2024 [facility]ropractic Report [facility] Orthopedic Visit Report Normal [facility] CNPNon 03-19-2025 CNPN Telephone (NENMMN) ---- TORI GRAY ([id number]) 1980 F Date Time Provider Department 03/19/25 [facility] During your visit today, [...] tablet by mouth once daily. - Ipratropium Hadley (ATROVENT) 21 mcg (0.03 %) nasal spray [...] Each by INTRAUTERINE route as directed. - [place]-3 Fatty Acids (FISH OIL) 500 mg cap Take 1 capsule by mouth once daily. - blood sugar diagnostic (BLOOD GLUCOSE TEST) test strip Test blood sugar(s) 1 times daily. Dx: Type 2 DM - Controlled E11.9 Insulin: Yes - Lancets lancets Test blood sugar(s) 1 times daily. Dx: Type 2 DM - Controlled E11.9 Insulin: No - Vctvklvd-Zq-Mey-Fe- FA tab Take 1 tablet by mouth [...] 05/06/2009 01/23/2010 Routine general medical examination at [facility]*01/23/2010 12/06/2012 Class: Chronic Routine gynecological examination [Z01.419] 01/23/2010 02/22/2014 Class: Chronic Morbid Obesity [E66.01] 01/23/2010 Lumbar Disc Disorder [M51.9] 02/16/2010 Routine general medical examination at [facility]*12/06/2012 02/22/2014 Anxiety [F41.9] 06/07/2014 Type 2 [...] 09/04/2022 11 (more content not included)... Normal [facility] Shoulder min 2 Viewson 03-11 Shoulder min 2 Views Normal [facility] Chiropractic Reporton 2024 Chiropractic Report Normal [facility] CNPNon 03-04-2025 CNPN Telephone (NEUSTF) ---- TORI GRAY ([id number]) 1980 F Date Time Provider Department 03/04/25 [...] tablet by mouth once daily. - Ipratropium Hadley (ATROVENT) 21 mcg (0.03 %) nasal spray [...] Each by INTRAUTERINE route as directed. - [place]-3 Fatty Acids (FISH OIL) 500 mg cap Take 1 capsule by mouth once daily. - blood sugar diagnostic (BLOOD GLUCOSE TEST) test strip Test blood sugar(s) 1 times daily. Dx: Type 2 DM - Controlled E11.9 Insulin: Yes - Lancets lancets Test blood sugar(s) 1 times daily. Dx: Type 2 DM - Controlled E11.9 Insulin: No - Bzdzsetn-Js-Qeb-Fe- FA tab Take 1 tablet by mouth [...] 05/06/2009 01/23/2010 Routine general medical examination at [facility]*01/23/2010 12/06/2012 Class: Chronic Routine gynecological examination [Z01.419] 01/23/2010 02/22/2014 Class: Chronic Morbid Obesity [E66.01] 01/23/2010 Lumbar Disc Disorder [M51.9] 02/16/2010 Routine general medical examination at [facility]*12/06/2012 02/22/2014 Anxiety [F41.9] 06/07/2014 Type 2 [...] headache [G43. (more content not included)... [facility] (HOMERO) ---- TORI GRAY ([id number]) 1980 F Date Time Provider Department 02/24/25 IVETTE PRICE JR During your visit today, we recorded the following information about you: Roya Jaramillo LPN 02/25/2025 5:02 PM Signed Please schedule with neuro félix to discuss botox. Please schedule in new spot. Pt has had botox prior but needs new referral to continue. PRINCESS Pierson, Hyacinth 03/01/2025 10:58 AM Signed Contacted patient scheduled [...] tablet by mouth once daily. - Ipratropium Hadley (ATROVENT) 21 mcg (0.03 %) nasal spray [...] Each by INTRAUTERINE route as directed. - [place]-3 Fatty Acids (FISH OIL) 500 mg cap Take 1 capsule by mouth once daily. - blood sugar diagnostic (BLOOD GLUCOSE TEST) test strip Test blood sugar(s) 1 times daily. Dx: Type 2 DM - Controlled E11.9 Insulin: Yes - Lancets lancets Test blood sugar(s) 1 times daily. Dx: Type 2 DM - Controlled E11.9 Insulin: No - Hapuguha-Vi-Kud-Fe- FA tab Take 1 tablet by mouth [...] 05/06/2009 01/23/2010 Routine general medical examination at [facility]*01/23/2010 12/06/2012 Class: Chronic Routine gynecological examination [Z01.419] 01/23/2010 02/22/2014 Class: Chronic Morbid Obesity [E66.01] 01/23/2010 Lumbar Disc Disorder [M51.9] 02/16/2010 Routine general medical examination at [facility]*12/06/2012 02/22/2014 Anxiety [F41.9] 06/07/2014 Type 2 [...] 09/04/2022 Low (more content not included)... Normal [facility] Inital Evaluation (1) - PTon 02-08-2025 Inital Evaluation (1) - PT Normal [facility] Chiropractic Reporton 2024 Chiropractic Report [facility] Anion gap in Serum or Plasma Ordered By: Ivette Grimes on 01-28-2025 Anion gap [Moles/Vol] 11 mmol/L 5-15 [facility] BUN/creatinine ratioOrdered By: Ivette Grimes on 01-28-2025 Urea nitrogen/Creatinine [Mass ratio] 18.5 mg/mg 10-20 [facility] Basic Metabolic Profile (BMP )on 01-28-2025 BUN/CRE 18.5 RATIO Normal -20 [facility] Comment on above: Performed By: #### L 500.2500, L501.9985 ####[facility] [address] [place], [address] Calcium [Mass/Vol] 9.0 mg/dL Normal 7.6-11.0 [facility] Comment on above: Performed By: #### L 500.2500, L501.9985 ####[facility] [address] [place], [address] Chloride [Moles/Vol] 105 mmol/L Normal 98-108 [facility] Comment on above: Performed By: #### L 500.2500, L501.9985 ####[facility] [address] [place], [address] CO2 [Moles/Vol] 21.2 mmol/L Normal 21.0-32.0 [facility] Comment on above: Performed By: #### L 500.2500, L501.9985 ####[facility] [address] [place], [address] Creatinine [Mass/Vol] 0.77 mg/dL Normal 0.70-1.20 [facility] Comment on above: Performed By: #### L 500.2500, L501.9985 ####[facility] [address] [place], [address] GAP 11 Normal 5-15 [facility] Comment on above: Performed By: #### L 500.2500, L501.9985 ####[facility] [address] [place], [address] GFR/1.73 sq M.predicted among non-blacks MDRD (S/P/Bld) [Vol rate/Area] 98 mL/min/{1.73_m2} Normal >60 [facility] Comment on above: Result Comment: mL/m in/1.73m2 CKD-EPI Creatinine Equation (2020) Performed By: #### L 500.2500, L501.9985 ####[facility] [address] [place], [address] Glucose [Mass/Vol] 185 mg/dL High 70-99 [facility] Comment on above: Performed By: #### L 500.2500, L501.9985 ####[facility] [address] [place], [address] Potassium [Moles/Vol] 4.2 mmol/L Normal 3.3-5.1 [facility] Comment on above: Result Comment: Hemo lysis present, Results??could be affected.?? Performed By: #### L 500.2500, L501.9985 ####[facility] [address] [place], [address] Sodium [Moles/Vol] 137 mmol/L Normal 133-145 [facility] Comment on above: Performed By: #### L 500.2500, L501.9985 ####[facility] [address] [place], [address] Urea nitrogen [Mass/Vol] 14 mg/dL Normal 4-19 [facility] Comment on above: Performed By: #### L 500.2500, L501.9985 ####[facility] [address] [place], [address] CNPIliana 01-28-2025 GABRIELAN Telephone (FAMPWS) ---- TORI GRAY ([id number]) 1980 F Date Time Provider Department 01/28/25 IVETTE GRIMESWS During your visit today, we recorded the following information about you: Krystle Barnett RN 01/28/2025 4:54 PM Signed Prior Authorization Documentation Prior authorization requested for the following medication: Medication: Ozempic 1 mg (all though PA done in Aug 2024 and approved until Aug 2025 this needs PA due to dose change). Provider: [employer] Name: [employer] Phone number: [phone] Patient ID number: [id number] Pharmacy Name: [facility] Telephone number: [phone] Evon Philippe LPN 01/28/2025 4:56 PM Signed Electronic PA requested. Evon Philippe LPN 01/28/2025 4:58 PM Signed Unable to complete electronically. Will try on covermymeds Evon Philippe LPN 01/29/2025 9:07 AM Signed [employer] RESPONSE. [employer] does not handle this review. Please visit [employer] to start a prior authorization or fax information to [phone]. Please include all supporting chart notes. You may contact [employer] at [phone]. WILL FAX PA REQUEST TO NUMBER PROVIDED. 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 Allergies As of Date: 01/28/2025 Noted Allergy [...] tablet by mouth once daily. - Ipratropium Hadley (ATROVENT) 21 mcg (0.03 %) nasal spray [...] Each by INTRAUTERINE route as directed. - [place]-3 Fatty Acids (FISH OIL) 500 mg cap Take 1 capsule by mouth once daily. - blood sugar diagnostic (BLOOD GLUCOSE TEST) test strip Test blood sugar(s) 1 times daily. Dx: Type 2 DM - Controlled E11.9 Insulin: Yes - Lancets lancets Test blood sugar(s) 1 times daily. Dx: Type 2 DM - Controlled E11.9 Insulin: No - Idetrfff-Nj-Guv-Fe- FA tab Take 1 tablet by mouth [...] DERMATOFIBROMA///BE N (more content not included)... [facility] TORI GRAY ([id number]) 1980 F Date Time Provider Department 01/28/25 IVETTE GRIMES [facility] During your visit today, we [...] tablet by mouth once daily. - Ipratropium Hadley (ATROVENT) 21 mcg (0.03 %) nasal spray [...] Each by INTRAUTERINE route as directed. - [place]-3 Fatty Acids (FISH OIL) 500 mg cap Take 1 capsule by mouth once daily. - blood sugar diagnostic (BLOOD GLUCOSE TEST) test strip Test blood sugar(s) 1 times daily. Dx: Type 2 DM - Controlled E11.9 Insulin: Yes - Lancets lancets Test blood sugar(s) 1 times daily. Dx: Type 2 DM - Controlled E11.9 Insulin: No - Qvijmeec-Rp-Qey-Fe- FA tab Take 1 tablet by mouth [...] general medical examination at a [facility]*01/23/2010 12/06/2012 Class: Chronic Routine gynecological examination [Z01.419] 01/23/2010 02/22/2014 Class: Chronic Morbid Obesity [E66.01] 01/23/2010 Lumbar Disc Disorder [M51.9] 02/16/2010 Routine general medical examination at [facility]*12/06/2012 02/22/2014 Anxiety [F41.9] 06/07/2014 Type 2 [...] R19.7] 11/22/202109/04 (more content not included)... Normal [facility] Carbon dioxide, total [Moles /volume] in Central venous bloodOrdered By: Ivette Grimes on 01-28-2025 CO2 [Moles/Vol] 21.2 mmol/L 21.0-32.0 [facility] Chloride assayOrdered By: Regina Grimes on 01-28-2025 Chloride [Moles/Vol] 105 mmol/L 98-108 [facility] GFR/1.73 sq M.predicted jamari g non-blacks MDRD (S/P/Bld) [Vol rate/Area]Ordered By: Ivette Grimes on 01-28-2025 Estimated GFR (MDRD) Non-Af Amer 98 >60 [facility] Comment on above: mL/min/1.73m2 CKD-EP I Creatinine Equation (2020) Glomerular filtration rate ( GFR) estimation/1.73 sq m using serum, plasma, or whole bOrdered By: Ivette Grimes on 01-28-2025 GFR/1.73 sq M.predicted among non-blacks MDRD (S/P/Bld) [Vol rate/Area] 98 mL/min/{1.73_m2} >60 [facility] Comment on above: mL/min/1.73m2 CKD-EP I Creatinine Equation (2020) HBA1C (OUTSIDE)on 01-28-2025 [facility] Hemoglobin A1c percentageon 01-28-2025 HbA1c (Bld) [Mass fraction] 6.6 % Normal <=5.6 [facility] Comment on above: Performed By: #### L 500.2500, L501.9985 ####[facility] [address] [place], [address] Potassium (Unsp spec) [Mass/ Vol]Ordered By: Ivette Grimes on 01-28-2025 Potassium [Moles/Vol] 4.2 mmol/L 3.3-5.1 [facility] Comment on above: Hemolysis present, R esults could be affected. Potassium measurement (mass/ volume)Ordered By: Ivette Grimes on 01-28-2025 Potassium (Unsp spec) [Mass/Vol] 4.2 mmol/L 3.3-5.1 [facility] Comment on above: Hemolysis present, R esults could be affected. Serum creatinine measurement (mass/volume)Ordered By: Ivette Grimes on 01-28-2025 Creatinine [Mass/Vol] 0.77 mg/dL 0.70-1.20 [facility] Serum glucose measurement (m ass/volume)Ordered By: Ivette Grimes on 01-28-2025 Glucose [Mass/Vol] 185 mg/dL High 70-99 [facility] Serum or plasma calcium sharron urement (mass/volume)Ordered By: Ivette Grimes on 01-28-2025 Calcium [Mass/Vol] 9.0 mg/dL 7.6-11.0 [facility] Serum or plasma urea nitroge n measurement (mass/volume)Ordered By: Ivette Grimes on 01-28-2025 Urea nitrogen [Mass/Vol] 14 mg/dL 4-19 [facility] Sodium levelOrdered By: Reji harem Sydney on 01-28-2025 Sodium [Moles/Vol] 137 mmol/L 133-145 [facility] CNOVon 01-22-2025 CNOV Office Visit (FAMPWS) ---- TORI GRAY ([id number]) 1980 F Date Time Provider Department 01/22/25 3:40 PM [facility] During your visit today, we [...] 1 tablet by mouth once daily. Ipratropium Hadley (ATROVENT) 21 mcg (0.03 %) nasal spray [...] 1 Each by INTRAUTERINE route as directed. [place]-3 Fatty Acids (FISH OIL) 500 mg cap Take 1 capsule by mouth once daily. blood sugar diagnostic (BLOOD GLUCOSE TEST) test strip Test blood sugar(s) 1 times daily. Dx: Type 2 DM - Controlled E11.9 Insulin: Yes Lancets lancets Test blood sugar(s) 1 times daily. Dx: Type 2 DM - Controlled E11.9 Insulin: No Oontyber-Tp-Cyl-Fe- FA tab Take 1 tablet by mouth [...] Age of Onset Alcohol/Drug Mother Heart Father [place] Cancer Father PANCREATIC CANCER Diabetes Father Coronary [...] Controlled ( (more content not included)... Normal [facility] H[facility] 12-21-2024 GABRIELAN Telephone ([facility]AMPWS) ---- TORI GRAY ([id number]) 1980 F Date Time Provider Department 12/21/24 JENNI JAIN During your visit today, we recorded the following information about you: Jenni Jain APRN.GABRIELA 12/21/2024 2:36 PM Signed Can you [...] tablet by mouth once daily. - Ipratropium Hadley (ATROVENT) 21 mcg (0.03 %) nasal spray [...] Each by INTRAUTERINE route as directed. - [place]-3 Fatty Acids (FISH OIL) 500 mg cap Take 1 capsule by mouth once daily. - blood sugar diagnostic (BLOOD GLUCOSE TEST) test strip Test blood sugar(s) 1 times daily. Dx: Type 2 DM - Controlled E11.9 Insulin: Yes - Lancets lancets Test blood sugar(s) 1 times daily. Dx: Type 2 DM - Controlled E11.9 Insulin: No - Lumilnlb-Fi-Cck-Fe- FA tab Take 1 tablet by mouth [...] general medical examination at a [facility]*01/23/2010 12/06/2012 Class: Chronic Routine gynecological examination [Z01.419] 01/23/2010 02/22/2014 Class: Chronic Morbid Obesity [E66.01] 01/23/2010 Lumbar Disc Disorder [M51.9] 02/16/2010 Routine general medical examination at a [facility]*12/06/2012 02/22/2014 Anxiety [F41.9] 06/07/2014 Type 2 diabetes mellitus with microalbuminuria,*0 07/04/2018 Fatty liver [K76.0] 07/21/2018 08/05/2024 LETITIA (obstructive sleep apnea) [G47.33] 07/21/2018 Microalbuminuria [R80.9] 09/30/2018 09/04/2022 Obesity, Class III, BMI >= 40 [E66.01] 11/26/2019 09/04/2022 (more content not included)... Normal [facility] Albumin to globulin ratioOrd ered By: Jenni Jain on 12-11-2024 Albumin/Globulin [Mass ratio] 0.8 {ratio} Low 0.9-2.4 [facility] Bilirubin, totalOrdered By: Jenni Jain on 12-11-2024 Bilirubin [Mass/Vol] 0.80 mg/dL 0.20-1.00 [facility] Comment on above: For patients on eltr ombopag therapy, use of Dimension [place] TBIL is not recommended. Blood urea nitrogen (BUN)/cr eatinine ratioOrdered By: Jenni Jain on 12-11-2024 Urea nitrogen/Creatinine [Mass ratio] 11.5 mg/mg 10-20 [facility] CNOVon 12-11-2024 CNOV Office Visit (FAMWS) ---- TORI GRAY ([id number]) 1980 F Date Time Provider Department 12/11/24 11:00 AM JENNI JAIN [facility] During your visit today, we recorded the following information about you: Temperature Pulse Respiration Blood pressure 97.8 degrees 72/minute 16/minute 138/74 Weight 125.7 kg Jenni Jain APRN.CHEMISTRY LECTURER 12/11/2024 12:26 PM Signed This is a [...] 1 tablet by mouth once daily. Ipratropium Hadley (ATROVENT) 21 mcg (0.03 %) nasal spray [...] 1 Each by INTRAUTERINE route as directed. [place]-3 Fatty Acids (FISH OIL) 500 mg cap Take 1 capsule by mouth once daily. blood sugar diagnostic (BLOOD GLUCOSE TEST) test strip Test blood sugar(s) 1 times daily. Dx: Type 2 DM - Controlled E11.9 Insulin: Yes Lancets lancets Test blood sugar(s) 1 times daily. Dx: Type 2 DM - Controlled E11.9 Insulin: No Oepviimq-Gf-Svr-Fe- FA tab Take 1 tablet by mouth once daily. No current facility-administer ed medications for this visit. FAMILY HISTORY Problem Relation Age of Onset Alcohol/Drug Mother Heart Father [place] Cancer Father PANCREATIC CANCER Diabetes Father Coronary [...] NECK: Negat (more content not included)... [facility] ([facility] ---- TORI GRAY ([id number]) 1980 F Date Time Provider Department 12/11/24 IVETTE GRIMES During your visit today, we recorded the following information about you: Brittney Meredith RN 12/11/2024 8:23 AM Signed Patient calling to make appt for evaluation of respiratory sx's that began approx 4 weeks ago. Pt states she feels she may have bronchitis or pneumonia. States she was at [facility] ER last month due to dizziness, [...] tablet by mouth once daily. - Ipratropium Hadley (ATROVENT) 21 mcg (0.03 %) nasal spray [...] Each by INTRAUTERINE route as directed. - [place]-3 Fatty Acids (FISH OIL) 500 mg cap Take 1 capsule by mouth once daily. - blood sugar diagnostic (BLOOD GLUCOSE TEST) test strip Test blood sugar(s) 1 times daily. Dx: Type 2 DM - Controlled E11.9 Insulin: Yes - Lancets lancets Test blood sugar(s) 1 times daily. Dx: Type 2 DM - Controlled E11.9 Insulin: No - Maruqxfx-Dc-Vdv-Fe- FA tab Take 1 tablet by mouth [...] 05/06/2009 01/23/2010 Routine general medical examination at [facility]*01/23/2010 12/06/2012 Class: Chronic Routine gynecological examination [Z01.419] 01/23/2010 02/22/2014 Class: Chronic Morbid Obesity [E66.01] 01/23/2010 Lumbar Disc Disorder [M51.9] 02/16/2010 Routine general medical examination at [facility]*12/06/2012 02/22/2014 Anxiety [F41.9] 06/07/2014 Type 2 diabetes mellitus with microalbuminuria,*0 07/04/2018 Fatty liver [K76.0] 07/21/2018 08/05/20 (more content not included)... [facility] ---- TORI GRAY ([id number]) 1980 F Date Time Provider Department 12/11/24 JENNI JAIN [facility] During your visit today, we recorded the following information about you: Jenni Jain APRN.[facility] 12/11/2024 2:18 PM Signed Can you please call the patient and let her know that I am still waiting for x-ray results from [facility]. I went ahead and sent in [...] daily until gone. Authorizing Provider: JENNI JAIN APRN.Jumana Montes LPN 12/11/2024 2:24 PM Signed [...] tablet by mouth once daily. - Ipratropium Hadley (ATROVENT) 21 mcg (0.03 %) nasal spray [...] Each by INTRAUTERINE route as directed. - [place]-3 Fatty Acids (FISH OIL) 500 mg cap Take 1 capsule by mouth once daily. - blood sugar diagnostic (BLOOD GLUCOSE TEST) test strip Test blood sugar(s) 1 times daily. Dx: Type 2 DM - Controlled E11.9 Insulin: Yes - Lancets lancets Test blood sugar(s) 1 times daily. Dx: Type 2 DM - Controlled E11.9 Insulin: No - Zhkoqydj-Rt-Gva-Fe- FA tab Take 1 tablet by mouth [...] SACROILIITIS [ (more content not included)... Normal [facility] Carbon dioxide measurementOr dered By: Jenni Jain on 12-11-2024 CO2 [Moles/Vol] 23.0 mmol/L 21.0-32.0 [facility] Chest PA and Lateralon 12-11 Chest PA and Lateral Normal [facility] Chloride measurementOrdered By: Jenni Jain on 12-11-2024 Chloride [Moles/Vol] 107 mmol/L 98-107 [facility] Comprehensive Metabolic Prof ilon 12-11-2024 Albumin [Mass/Vol] 3.7 g/dL Normal 3.2-5.0 [facility] Comment on above: Performed By: #### L 500.4050 ####[facility] [address] [place], [place], [id number] Albumin/Globulin [Mass ratio] 0.8 {ratio} Low 0.9-2.4 [facility] Comment on above: Performed By: #### L 500.4050 ####[facility] [address] [place], [address] ALK P 84 U/L Normal 45-117 [facility] Comment on above: Performed By: #### L 500.4050 ####[facility] [address] [place], [address] ALT [Catalytic activity/Vol] 53 U/L Normal 13-56 [facility] Comment on above: Performed By: #### L 500.4050 ####[facility] [address] [place], [address] AST [Catalytic activity/Vol] 40 U/L High 15-37 [facility] Comment on above: Performed By: #### L 500.4050 ####[facility] [address] [place], [address] Bilirubin [Mass/Vol] 0.80 mg/dL Normal 0.20-1.00 [facility] Comment on above: Result Comment: For patients on eltrombopag therapy, use of Dimension [place] TBIL is not recommended. Performed By: #### L 500.4050 ####[facility] [address] [place], [address] BUN/CRE 11.5 RATIO Normal 10-20 [facility] Comment on above: Performed By: #### L 500.4050 ####[facility] [address] [place], [address] CA,Total 8.8 mg/dL Normal 8.5-10.1 [facility] Comment on above: Performed By: #### L 500.4050 ####[facility] [address] [place], [address] Chloride [Moles/Vol] 107 mmol/L Normal 98-107 [facility] Comment on above: Performed By: #### L 500.4050 ####[facility] [address] [place], [address] CO2 [Moles/Vol] 23.0 mmol/L Normal 21.0-32.0 [facility] Comment on above: Performed By: #### L 500.4050 ####[facility] [address] [place], [address] Creatinine [Mass/Vol] 0.78 mg/dL Normal 0.55-1.02 [facility] Comment on above: Result Comment: The validity of the calculated GFR GFRAA in patients over70 years has not been determined. Clinical correlation isessential. Performed By: #### L 500.4050 ####[facility] [address] [place], [address] EST GFR - AA 104 mL/min Normal >60 [facility] Comment on above: Result Comment: Afri can [place] GFR Calc Performed By: #### L 500.4050 ####[facility] [address] [place], [address] GAP 7 Normal 5-15 [facility] Comment on above: Performed By: #### L 500.4050 ####[facility] [address] [place], [address] GFR/1.73 sq M.predicted among non-blacks MDRD (S/P/Bld) [Vol rate/Area] 86 mL/min/{1.73_m2} Normal >60 [facility] Comment on above: Result Comment: Non- GFR Calc Performed By: #### L 500.4050 ####[facility] [address] [place], [address] Globulin (S) [Mass/Vol] 4.5 g/dL High 2.2-4.2 [facility] Comment on above: Performed By: #### L 500.4050 ####[facility] [address] [place], [address] Glucose [Mass/Vol] 109 mg/dL High 74-106 [facility] Comment on above: Result Comment: Fast ing Glucose result from 100 to 125 mg/dLsuggests IMPAIRED HOMEOSTASIS per A.D.A. criteria. Performed By: #### L 500.4050 ####[facility] [address] [place], [address] Potassium [Moles/Vol] 3.9 mmol/L Normal 3.5-5.1 [facility] Comment on above: Performed By: #### L 500.4050 ####[facility] [address] [place], [address] Sodium [Moles/Vol] 137 mmol/L Normal 136-145 [facility] Comment on above: Performed By: #### L 500.4050 ####[facility] [address] [place], [address] T PROT 8.2 g/dL Normal 6.4-8.2 [facility] Comment on above: Performed By: #### L 500.4050 ####[facility] [address] [place], [address] Urea nitrogen [Mass/Vol] 9 mg/dL Normal 7-18 [facility] Comment on above: Performed By: #### L 500.4050 ####[facility] [address] [place], [address] Estimated glomerular filtrat ion rate (GFR) AmericanOrdered By: Jenni Jain on 12-11-2024 Estimated GFR (MDRD) Amer 104 mL/min >60 [facility] Comment on above: GFR Calc Glomerular filtration rate ( GFR) estimationOrdered By: Jenni Jain on 12-11-2024 Estimated GFR (MDRD) Non-Af Amer 86 mL/min >60 [facility] Comment on above: Non- GFR Calc GFR/1.73 sq M.predicted among non-blacks MDRD (S/P/Bld) [Vol rate/Area] 86 mL/min/{1.73_m2} >60 [facility] Comment on above: Non- GFR Calc Glucose measurementOrdered B y: Jenni Jain on 12-11-2024 Glucose [Mass/Vol] 109 mg/dL High 74-106 [facility] Comment on above: Fasting Glucose resu lt from 100 to 125 mg/dL suggests IMPAIRED HOMEOSTASIS per A.D.A. criteria. Laboratory - Chemistry and C hemistry - challengeOrdered By: Jenni Jain on 12-11-2024 AST [Catalytic activity/Vol] 40 U/L High 15-37 [facility] Potassium measurementOrdered By: Jenni Jain on 12-11-2024 Potassium [Moles/Vol] 3.9 mmol/L 3.5-5.1 [facility] Serum anion gap measurementO rdered By: Jenni Jain on 12-11-2024 Anion gap [Moles/Vol] 7 mmol/L 5-15 [facility] Serum globulin measurementOr dered By: Jenni Jain on 12-11-2024 Globulin (S) [Mass/Vol] 4.5 g/dL High 2.2-4.2 [facility] Serum or plasma alanine arizmendi otransferase (ALT) measurementOrdered By: Jenni Jain on 12-11-2024 ALT [Catalytic activity/Vol] 53 U/L 13-56 [facility] Serum or plasma albumin sharron urement (mass/volume)Ordered By: Jenni Jain on 12-11-2024 Albumin [Mass/Vol] 3.7 g/dL 3.2-5.0 [facility] Serum or plasma alkaline toyin sphatase measurementOrdered By: Jenni Jain on 12-11-2024 ALP [Catalytic activity/Vol] 84 U/L 45-117 [facility] Serum or plasma calcium sharron urement (mass/volume)Ordered By: Jenni Jain on 12-11-2024 Calcium [Mass/Vol] 8.8 mg/dL 8.5-10.1 [facility] Serum or plasma creatinine m easurement (mass/volume)Ordered By: Jenni Jain on 12-11-2024 Creatinine [Mass/Vol] 0.78 mg/dL 0.55-1.02 [facility] Comment on above: The validity of the calculated GFR & GFRAA in patients over 70 years has not been determined. Clinical correlation is essential. Serum or plasma urea nitroge n measurement (mass/volume)Ordered By: Jenni Jain on 12-11-2024 Urea nitrogen [Mass/Vol] 9 mg/dL 7-18 [facility] Sodium levelOrdered By: Ricco Jain on 12-11-2024 Sodium [Moles/Vol] 137 mmol/L 136-145 [facility] Total proteinOrdered By: John Jain on 12-11-2024 Protein [Mass/Vol] 8.2 g/dL 6.4-8.2 [facility] Urine Cultureon 11-12-2024 URC Mixed Gram Pos Gram Neg Org [place] Count 11,000-25,000 MIXC Mixed contaminants. Submit a new specimen if indicated. Normal [facility] Comment on above: Performed By: #### M 100.2200 ####[facility] [address] [place], [address] 12 Lead EKGon 11-11-2024 12 Lead EKG Normal [facility] Absolute neutrophil countOrd ered By: Buddy Hall on 11-11-2024 Neutrophils (Bld) [#/Vol] 6.5 10*3/uL 2.0-7.7 [facility] Albumin to globulin ratioOrd ered By: Buddy Hall on 11-11-2024 Albumin/Globulin [Mass ratio] 0.6 {ratio} Low 0.9-2.4 [facility] Bacteria LM.HPF (Urine sed) [#/Area]Ordered By: Buddy Hall on 11-11-2024 Urine Bacteria RARE /hpf None Seen [facility] Basophil percentageOrdered B y: Buddy Hall on 11-11-2024 Basophils/100 WBC (Bld) 0.4 % 0-1 [facility] Bilirubin Test strip Ql (U)O rdered By: Buddy Hall on 11-11-2024 Bilirubin Ql (U) Negative Negative [facility] Bilirubin, totalOrdered By: Buddy Hall on 11-11-2024 Bilirubin [Mass/Vol] 0.90 mg/dL 0.20-1.00 [facility] Comment on above: For patients on eltr ombopag therapy, use of Dimension [place] TBIL is not recommended. Blood urea nitrogen (BUN)/cr eatinine ratioOrdered By: Buddy Hall on 11-11-2024 Urea nitrogen/Creatinine [Mass ratio] 9.8 mg/mg Low 10-20 [facility] CBC W/Diff, Automatedon Absolute Lymph 0.72 X10 3/uL Low 0.83-4.51 [facility] Comment on above: Performed By: #### L 100.0100, L500.4050 ####[facility] [address] [place], [address] Absolute Neut 6.5 X10 3/uL Normal 2.0-7.7 [facility] Comment on above: Performed By: #### L 100.0100, L500.4050 ####[facility] [address] [place], [address] Basophils/100 WBC (Bld) 0.4 % Normal 0-1 [facility] Comment on above: Performed By: #### L 100.0100, L500.4050 ####[facility] [address] [place], [address] Eosinophils/100 WBC (Bld) 1.2 % Normal 0-5 [facility] Comment on above: Performed By: #### L 100.0100, L500.4050 ####[facility] [address] [place], [address] Erythrocyte distribution width (RBC) [Ratio] 13.7 % Normal 11.6-14.6 [facility] Comment on above: Performed By: #### L 100.0100, L500.4050 ####[facility] [address] [place], [address] Hematocrit (Bld) [Volume fraction] 33.1 % Low 37-47 [facility] Comment on above: Performed By: #### L 100.0100, L500.4050 ####[facility] [address] [place], [address] Hemoglobin (Bld) [Mass/Vol] 11.4 g/dL Low 12.0-15.0 [facility] Comment on above: Performed By: #### L 100.0100, L500.4050 ####[facility] [address] [place], [address] IG% 1.200 High 0.0-0.9 [facility] Comment on above: Result Comment: IG% - Immature Granulocytes (promyelocytes, myelocytes andmetamyelocytes) > 1% indicates that a LEFT SHIFT is Present. Performed By: #### L 100.0100, L500.4050 ####[facility] [address] [place], [address] Lymphocytes/100 WBC (Bld) 9.2 % Low 19-41 [facility] Comment on above: Performed By: #### L 100.0100, L500.4050 ####[facility] [address] [place], [address] MCH (RBC) [Entitic mass] 31.8 pg Normal 27.0-32.0 [facility] Comment on above: Performed By: #### L 100.0100, L500.4050 ####[facility] [address] [place], [address] MCHC (RBC) [Mass/Vol] 34.4 g/dL Normal 32-36 [facility] Comment on above: Performed By: #### L 100.0100, L500.4050 ####[facility] [address] [place], [address] MCV (RBC) [Entitic vol] 92.5 fL Normal 81-99 [facility] Comment on above: Performed By: #### L 100.0100, L500.4050 ####[facility] [address] [place], [address] Monocytes/100 WBC (Bld) 4.2 % Normal 0-10 [facility] Comment on above: Performed By: #### L 100.0100, L500.4050 ####[facility] [address] [place], [address] Neutrophils/100 WBC (Bld) 83.8 % High 47-70 [facility] Comment on above: Performed By: #### L 100.0100, L500.4050 ####[facility] [address] [place], [address] Nucleated RBC (Bld) [#/Vol] 0 10*3/uL Normal 0-5 [facility] Comment on above: Performed By: #### L 100.0100, L500.4050 ####[facility] [address] [place], [address] Platelet mean volume (Bld) [Entitic vol] 9.6 fL Normal 6.2-12.0 [facility] Comment on above: Performed By: #### L 100.0100, L500.4050 ####[facility] [address] [place], [address] Platelets (Bld) [#/Vol] 108 10*3/uL Low 150-450 [facility] Comment on above: Performed By: #### L 100.0100, L500.4050 ####[facility] [address] [place], [address] RBC (Bld) [#/Vol] 3.58 10*6/uL Low 4.2-5.4 [facility] Comment on above: Performed By: #### L 100.0100, L500.4050 ####[facility] [address] [place], [address] RDW SD 46.7 fl High 35.1-43.9 [facility] Comment on above: Performed By: #### L 100.0100, L500.4050 ####[facility] [address] [place], [address] WBC (Bld) [#/Vol] 7.8 10*3/uL Normal 4.4-11.0 [facility] Comment on above: Performed By: #### L 100.0100, L500.4050 ####[facility] [address] [place], [address] Carbon dioxide measurementOr dered By: Buddy Hall on 11-11-2024 CO2 [Moles/Vol] 28.0 mmol/L 21.0-32.0 [facility] Chloride measurementOrdered By: Buddy Hall on 11-11-2024 Chloride [Moles/Vol] 102 mmol/L 98-107 [facility] Comprehensive Metabolic Prof ilon 11-11-2024 Albumin [Mass/Vol] 2.6 g/dL Low 3.2-5.0 [facility] Comment on above: Performed By: #### L 100.0100, L500.4050 ####[facility] [address] [place], [address] Albumin/Globulin [Mass ratio] 0.6 {ratio} Low 0.9-2.4 [facility] Comment on above: Performed By: #### L 100.0100, L500.4050 ####[facility] [address] [place], [address] ALK P 79 U/L Normal 45-117 [facility] Comment on above: Performed By: #### L 100.0100, L500.4050 ####[facility] [address] [place], [address] ALT [Catalytic activity/Vol] 29 U/L Normal 13-56 [facility] Comment on above: Performed By: #### L 100.0100, L500.4050 ####[facility] [address] [place], [address] AST [Catalytic activity/Vol] 16 U/L Normal 15-37 [facility] Comment on above: Performed By: #### L 100.0100, L500.4050 ####[facility] [address] [place], [address] Bilirubin [Mass/Vol] 0.90 mg/dL Normal 0.20-1.00 [facility] Comment on above: Result Comment: For patients on eltrombopag therapy, use of Dimension [place] TBIL is not recommended. Performed By: #### L 100.0100, L500.4050 ####[facility] [address] [place], [address] BUN/CRE 9.8 RATIO Low 10-20 [facility] Comment on above: Performed By: #### L 100.0100, L500.4050 ####[facility] [address] [place], [address] CA,Total 8.2 mg/dL Low 8.5-10.1 [facility] Comment on above: Performed By: #### L 100.0100, L500.4050 ####[facility] [address] [place], [address] Chloride [Moles/Vol] 102 mmol/L Normal 98-107 [facility] Comment on above: Performed By: #### L 100.0100, L500.4050 ####[facility] [address] [place], [address] CO2 [Moles/Vol] 28.0 mmol/L Normal 21.0-32.0 [facility] Comment on above: Performed By: #### L 100.0100, L500.4050 ####[facility] [address] [place], [address] Creatinine [Mass/Vol] 1.12 mg/dL High 0.55-1.02 [facility] Comment on above: Result Comment: The validity of the calculated GFR GFRAA in patients over70 years has not been determined. Clinical correlation isessential. Performed By: #### L 100.0100, L500.4050 ####[facility] [address] [place], [address] ECRCL 92.31 ml/min Normal [facility] Comment on above: Performed By: #### L 100.0100, L500.4050 ####[facility] [address] [place], [address] EST GFR - AA 69 mL/min Normal >60 [facility] Comment on above: Result Comment: Afri can Tanzanian GFR Calc Performed By: #### L 100.0100, L500.4050 ####[facility] [address] [place], [address] GAP 6 Normal 5-15 [facility] Comment on above: Performed By: #### L 100.0100, L500.4050 ####[facility] [address] [place], [address] GFR/1.73 sq M.predicted among non-blacks MDRD (S/P/Bld) [Vol rate/Area] 57 mL/min/{1.73_m2} Low >60 [facility] Comment on above: Result Comment: Non- GFR Calc Performed By: #### L 100.0100, L500.4050 ####[facility] [address] [place], [address] Globulin (S) [Mass/Vol] 4.0 g/dL Normal 2.2-4.2 [facility] Comment on above: Performed By: #### L 100.0100, L500.4050 ####[facility] [address] [place], [address] Glucose [Mass/Vol] 233 mg/dL High 74-106 [facility] Comment on above: Result Comment: Gluc ose result greater than or equal to 200 mg/dLsuggests DIABETES MELLITUS per A.D.A. criteria. Performed By: #### L 100.0100, L500.4050 ####[facility] [address] [place], [address] Potassium [Moles/Vol] 2.6 mmol/L Invalid Interpretation Code 3.5-5.1 [facility] Comment on above: Result Comment: Crit ical Result(s) Called at: 07:34:02 11/11/2024 by: AARTI to Rnoald Dumas. Results read back by same. Performed By: #### L 100.0100, L500.4050 ####[facility] [address] [place], [address] Sodium [Moles/Vol] 135 mmol/L Low 136-145 [facility] Comment on above: Performed By: #### L 100.0100, L500.4050 ####[facility] [address] [place], [address] T PROT 6.6 g/dL Normal 6.4-8.2 [facility] Comment on above: Performed By: #### L 100.0100, L500.4050 ####[facility] [address] [place], [address] Urea nitrogen [Mass/Vol] 11 mg/dL Normal 7-18 [facility] Comment on above: Performed By: #### L 100.0100, L500.4050 ####[facility] [address] [place], [address] Emergency Department Summary on 11-11-2024 Emergency Department Summary Normal [facility] Eosinophil percentageOrdered By: Buddy Hall on 11-11-2024 Eosinophils/100 WBC (Bld) 1.2 % 0-5 [facility] Epithelial cells.squamous LM Ql (Urine sed)Ordered By: Buddy Hall on 11-11-2024 Epithelial cells.squamous LM.HPF (Urine sed) [#/Area] 0 /[HPF] 5-10 [facility] Erythrocyte distribution wid th ratioOrdered By: Buddy Hall on 11-11-2024 Erythrocyte distribution width (RBC) [Ratio] 13.7 % 11.6-14.6 [facility] Erythrocyte distribution wid th standard deviationOrdered By: Buddy Hall on 11-11-2024 Erythrocyte distribution width (RBC) [Entitic vol] 46.7 fL High 35.1-43.9 [facility] Estimated glomerular filtrat ion rate (GFR) AmericanOrdered By: Buddy Hall on 11-11-2024 Estimated GFR (MDRD) Amer 69 mL/min >60 [facility] Comment on above: GFR Calc Estimation of creatinine deniz aranceOrdered By: Buddy Hall on 11-11-2024 Estimated Creatinine Clearance Calc 92.31 ml/min [facility] Glomerular filtration rate ( GFR) estimationOrdered By: Buddy Hall on 11-11-2024 Estimated GFR (MDRD) Non-Af Amer 57 mL/min Low >60 [facility] Comment on above: Non- GFR Calc Glucose Ql (U)Ordered By: Smith Hall on 11-11-2024 Urine Glucose (UA) Normal mg/dl Normal [facility] Glucose measurementOrdered B y: Buddy Hall on 11-11-2024 Glucose [Mass/Vol] 233 mg/dL High 74-106 [facility] Comment on above: Glucose result great er than or equal to 200 mg/dLsuggests DIABETES MELLITUS per A.D.A. criteria. Hematocrit Auto (Bld) [Volum e fraction]Ordered By: Buddy Hall on 11-11-2024 Hematocrit (Bld) [Volume fraction] 33.1 % Low 37-47 [facility] Hemoglobin measurementOrdere d By: Buddy Hall on 11-11-2024 Hemoglobin (Bld) [Mass/Vol] 11.4 g/dL Low 12.0-15.0 [facility] Immature granulocytes/100 WB C Auto (Bld)Ordered By: Buddy Hall on 11-11-2024 Immature granulocytes/100 WBC (Bld) 1.200 % High 0.0-0.9 [facility] Comment on above: IG% - Immature Granu locytes (promyelocytes, myelocytes and metamyelocytes) > 1% indicates that a LEFT SHIFT is Present. Influenza virus A and B and SARS-CoV-2 (COVID-19) and Respiratory syncytial virus RNAOrdered By: Buddy Hall on 11-11-2024 SARS-CoV-2 (COVID-19) RNA ALLYSON+probe Ql (Unsp spec) [facility] Ketones Test strip Ql (U)Ord ered By: Bdudy Hall on 11-11-2024 Ketones Ql (U) 5 mg/dl High Negative [facility] Laboratory - Chemistry and C hemistry - challengeOrdered By: Buddy Hall on 11-11-2024 AST [Catalytic activity/Vol] 16 U/L 15-37 [facility] Lymphocytes Auto (Unsp spec) [#/Vol]Ordered By: Buddy Hall on 11-11-2024 Lymphocytes (Bld) [#/Vol] 0.72 10*3/uL Low 0.83-4.51 [facility] Lymphocytes/100 WBC Auto (Un sp spec)Ordered By: Buddy Hall on 11-11-2024 Lymphocytes/100 WBC (Bld) 9.2 % Low 19-41 [facility] M100.678on 11-11-2024 M100.678 Pending SARS-CoV-2 (COVID 19) Negative INFLUENZA A Negative INFLUENZA B Negative RSV PCR Negative Normal [facility] Comment on above: Performed By: #### M 100.678, L400.0001 ####[facility] [address] [place], [place], [id number] MCV (mean corpuscular volume ) determinationOrdered By: Buddy Hall on 11-11-2024 MCV (RBC) [Entitic vol] 92.5 fL 81-99 [facility] Magnesiumon 11-11-2024 Magnesium [Mass/Vol] 1.7 mg/dL Normal 1.6-2.6 [facility] Comment on above: Performed By: #### L 501.5200 ####[facility] [address] [place], [place], [id number] Magnesium measurementOrdered By: Buddy Hall on 11-11-2024 Magnesium [Mass/Vol] 1.7 mg/dL 1.6-2.6 [facility] Mean corpuscular hemoglobin (MCH) determinationOrdered By: Buddy Hall on 11-11-2024 MCH (RBC) [Entitic mass] 31.8 pg 27.0-32.0 [facility] Mean corpuscular hemoglobin concentration (MCHC) determinationOrdered By: Buddy Hall on 11-11-2024 MCHC (RBC) [Mass/Vol] 34.4 g/dL 32-36 [facility] Mean platelet volume determi nationOrdered By: Buddy Hall on 11-11-2024 Platelet mean volume (Bld) [Entitic vol] 9.6 fL 6.2-12.0 [facility] Microscopic analysis of urin e for red blood cells (RBC)Ordered By: Buddy Hall on 11-11-2024 Urine RBC 0-5 SEEN /hpf 0-5 [facility] Monocyte percentageOrdered B y: Buddy Hall on 11-11-2024 Monocytes/100 WBC (Bld) 4.2 % 0-10 [facility] Mucus LM Ql (Urine sed)Order ed By: Buddy Hall on 11-11-2024 Mucus Ql (Urine sed) 0 SEEN /hpf [facility] Neutrophil percentageOrdered By: Buddy Hall on 11-11-2024 Neutrophils/100 WBC (Bld) 83.8 % High 47-70 [facility] Nitrite Test strip Ql (U)Ord ered By: Buddy Hall on 11-11-2024 Nitrite Ql (U) Negative Negative [facility] Nucleated red blood cell per centageOrdered By: Buddy Hall on 11-11-2024 Nucleated RBC/100 WBC (Bld) [Ratio] 0 % 0-5 [facility] Platelet countOrdered By: Smith Hall on 11-11-2024 Platelets (Bld) [#/Vol] 108 10*3/uL Low 150-450 [facility] Potassium measurementOrdered By: Buddy Hall on 11-11-2024 Potassium [Moles/Vol] 2.6 mmol/L Low 3.5-5.1 [facility] Comment on above: Critical Result(s) C alled at: 07:34:02 11/11/2024 by: ESTEFANIA MENDOZA to Ronald Dumas. Results read back by same. Protein Test strip Ql (U)Ord ered By: Buddy Hall on 11-11-2024 Protein Ql (U) 100 mg/dl High Negative [facility] RBC Auto (Bld) [#/Vol]Ordere d By: Buddy Hall on 11-11-2024 RBC (Bld) [#/Vol] 3.58 10*6/uL Low 4.2-5.4 [facility] Serum anion gap measurementO rdered By: Buddy Hall on 11-11-2024 Anion gap [Moles/Vol] 6 mmol/L 5-15 [facility] Serum globulin measurementOr dered By: Buddy Hall on 11-11-2024 Globulin (S) [Mass/Vol] 4.0 g/dL 2.2-4.2 [facility] Serum or plasma alanine arizmendi otransferase (ALT) measurementOrdered By: Buddy Hall on 11-11-2024 ALT [Catalytic activity/Vol] 29 U/L 13-56 [facility] Serum or plasma albumin sharron urement (mass/volume)Ordered By: Buddy Hall on 11-11-2024 Albumin [Mass/Vol] 2.6 g/dL Low 3.2-5.0 [facility] Serum or plasma alkaline toyin sphatase measurementOrdered By: Buddy Hall on 11-11-2024 ALP [Catalytic activity/Vol] 79 U/L 45-117 [facility] Serum or plasma calcium sharron urement (mass/volume)Ordered By: Buddy Hall on 11-11-2024 Calcium [Mass/Vol] 8.2 mg/dL Low 8.5-10.1 [facility] Serum or plasma creatinine m easurement (mass/volume)Ordered By: Buddy Hall on 11-11-2024 Creatinine [Mass/Vol] 1.12 mg/dL High 0.55-1.02 [facility] Comment on above: The validity of the calculated GFR & GFRAA in patients over 70 years has not been determined. Clinical correlation is essential. Serum or plasma urea nitroge n measurement (mass/volume)Ordered By: Buddy Hall on 11-11-2024 Urea nitrogen [Mass/Vol] 11 mg/dL 7-18 [facility] Sodium levelOrdered By: Ashia Hall on 11-11-2024 Sodium [Moles/Vol] 135 mmol/L Low 136-145 [facility] Total proteinOrdered By: Sim Hall on 11-11-2024 Protein [Mass/Vol] 6.6 g/dL 6.4-8.2 [facility] Urinalysis, Completeon 11-11 BACTERIA RARE Normal None Seen [facility] Comment on above: Order Comment: CLEAN CATCH Performed By: #### M 100.678, L400.0001 ####[facility] [address] [place], [address] EPI,SQUAMOUS 0-5 SEEN Normal 5-10 [facility] Comment on above: Order Comment: CLEAN CATCH Performed By: #### M 100.678, L400.0001 ####[facility] [address] [place], [address] RBC 0-5 SEEN Normal 0-5 [facility] Comment on above: Order Comment: CLEAN CATCH Performed By: #### M 100.678, L400.0001 ####[facility] [address] [place], [address] WBC 10-25 SEEN Normal 0-5 [facility] Comment on above: Order Comment: CLEAN CATCH Performed By: #### M 100.678, L400.0001 ####[facility] [address] [place], [address] Mucus Ql (Urine sed) 0 SEEN Normal [facility] Comment on above: Order Comment: CLEAN CATCH Performed By: #### M 100.678, L400.0001 ####[facility] [address] [place], [address] Urine blood detectionOrdered By: Buddy Hall on 11-11-2024 Urine Occult Blood 150 /ul High Negative [facility] Urine clarityOrdered By: Sim Hall on 11-11-2024 Clarity (U) Sl. Cloudy Clear [facility] Urine color determinationOrd ered By: Buddy Hall on 11-11-2024 Color (U) Yellow Yellow [facility] Urine cultureOrdered By: Sim Hall on 11-11-2024 Bacteria identified Cx Nom (U) Mixed Gram Pos & Gram Neg Org Abnormal [facility] Urine leukocyte esterase det ection by dipstickOrdered By: Buddy Hall on 11-11-2024 Leukocyte esterase Test strip Ql (U) 500 /ul High Negative [facility] Urine pHOrdered By: Buddy samuel on 11-11-2024 pH (U) 6.5 [pH] 5.0 - 8.0 [facility] Urine specific gravity measu rementOrdered By: Buddy Hall on 11-11-2024 Specific gravity (U) [Rel density] 1.010 1.002-1.030 [facility] Urobilinogen Ql (U)Ordered B y: Buddy Hall on 11-11-2024 Urine Urobilinogen Normal mg/dl Normal [facility] White blood cell (WBC) count Ordered By: Buddy Hall on 11-11-2024 WBC (Bld) [#/Vol] 7.8 10*3/uL 4.4-11.0 [facility] White blood cell countOrdere d By: Buddy Hall on 11-11-2024 Urine WBC 10-25 SEEN /hpf 0-5 [facility] Chiropractic Reporton 2023 Chiropractic Report Normal [facility] Brain/Head without Contrasto n 10-16-2024 Brain/Head without Contrast Normal [facility] Emergency Department Summary on 10-16-2024 Emergency Department Summary Normal [facility] HIP, UNI W/ Pelvis 2-3 Views on 10-16-2024 HIP, UNI W/ Pelvis 2-3 Views Normal [facility] Lumbar Spine 2 or 3 Viewson 10-16-2024 Lumbar Spine 2 or 3 Views Normal [facility] Spine Cervical without Contr ason 10-16-2024 Spine Cervical without Contras Normal [facility] HBA1C (OUTSIDE)on 07-08-2024 HbA1c (Bld) [Mass fraction] 6.7 % [facility] LIPID PANEL (OUTSIDE)on Cholesterol [Mass/Vol] 195 mg/dL [facility] Cholesterol in HDL [Mass/Vol] 35 mg/dL [facility] Cholesterol in LDL [Mass/Vol] 105 mg/dL [facility] LDL:HDL Ratio [facility] Non-HDL Cholesterol [facility] TC:HDL Ratio [facility] Triglyceride [Mass/Vol] 274 mg/dL [facility] VLDL Cholesterol [address] [facility] No Panel Informationon 07-08 [facility] MICROALBUMIN/CREATININE UR W RATIO (EXTERNAL)Ordered By: Lubna Yoon on 07-04-2024 Albumin/Creat Ratio 93 [facility] Creatinine Urine [address] [facility] Microalbumin, Random urine 153 [facility] Absolute lymphocyte countOrd ered By: Sam Pearl on 02-04-2024 Lymphocytes Auto (Unsp spec) [#/Vol] 2.24 10*3/uL 0.83-4.51 [facility] Automated lymphocyte count a s percentage of total leukocytesOrdered By: Sam Pearl on 02-04-2024 Lymphocytes/100 WBC Auto (Unsp spec) 19.8 % 19-41 [facility] Basophil percentageOrdered B y: Sam Pearl on 02-04-2024 Basophils/100 WBC (Bld) 0.4 % 0-1 [facility] Chloride [Moles/Vol] 106 mmol/L 98-107 [facility] Eosinophils/100 WBC (Bld) 0.9 % 0-5 [facility] Glucose [Mass/Vol] 246 mg/dL 74-106 [facility] Comment on above: Glucose result great er than or equal to 200 mg/dLsuggests DIABETES MELLITUS per A.D.A. criteria. Hemoglobin (Bld) [Mass/Vol] 11.2 g/dL 12.0-15.0 [facility] Monocytes/100 WBC (Bld) 6.6 % 0-10 [facility] Neutrophils (Bld) [#/Vol] 8.0 10*3/uL 2.0-7.7 [facility] Neutrophils/100 WBC (Bld) 71.0 % 47-70 [facility] Potassium [Moles/Vol] 3.6 mmol/L 3.5-5.1 [facility] Sodium [Moles/Vol] 135 mmol/L 136-145 [facility] WBC (Bld) [#/Vol] 11.3 10*3/uL 4.4-11.0 [facility] er [facility] Basophil percentage 10-25 SEEN /hpf 0-5 [facility] Bilirubin Test strip Ql (U)O rdered By: Sam Pearl on 02-04-2024 Bilirubin Ql (U) Negative Negative [facility] Determination of erythrocyte mean corpuscular volume (MCV)Ordered By: Sam Pearl on 02-04-2024 MCV (RBC) [Entitic vol] 89.5 fL 81-99 [facility] Erythrocyte distribution wid th ratioOrdered By: Sam Pearl on 02-04-2024 Erythrocyte distribution width (RBC) [Ratio] 13.2 % 11.6-14.6 [facility] Erythrocyte distribution wid th standard deviationOrdered By: Sam Pearl on 02-04-2024 Erythrocyte distribution width (RBC) [Entitic vol] 43.2 fL 35.1-43.9 [facility] Hematocrit Auto (Bld) [Volum e fraction]Ordered By: Sam Pearl on 02-04-2024 Hematocrit (Bld) [Volume fraction] 34.2 % 37-47 [facility] Immature granulocytes/100 WB C Auto (Bld)Ordered By: Sam Pearl on 02-04-2024 Immature granulocytes/100 WBC (Bld) 1.300 % 0.0-0.9 [facility] Comment on above: IG% - Immature Granu locytes (promyelocytes, myelocytes and metamyelocytes) > 1% indicates that a LEFT SHIFT is Present. Ketones Test strip Ql (U)Ord ered By: Sam Pearl on 02-04-2024 Ketones Ql (U) Negative Negative [facility] Laboratory - Chemistry and C hemistry - challengeOrdered By: Sam Pearl on 02-04-2024 CO2 [Moles/Vol] 21.0 mmol/L 21.0-32.0 [facility] Urea nitrogen/Creatinine [Mass ratio] 15.0 mg/mg 10-20 [facility] Laboratory - Hematology and Cell countsOrdered By: Sam Pearl on 02-04-2024 MCH (RBC) [Entitic mass] 29.3 pg 27.0-32.0 [facility] MCHC (RBC) [Mass/Vol] 32.7 g/dL 32-36 [facility] Nucleated RBC/100 WBC (Bld) [Ratio] 0 % 0-5 [facility] Platelet mean volume (Bld) [Entitic vol] 9.2 fL 6.2-12.0 [facility] Platelets (Bld) [#/Vol] 203 10*3/uL 150-450 [facility] Laboratory - Microbiology an d Antimicrobial susceptibilityOrdered By: Sam Pearl on 02-04-2024 SARS-CoV-2 (COVID-19) RNA ALLYSON+probe Ql (Unsp spec) [facility] Mucus LM Ql (Urine sed)Order ed By: Sam Pearl on 02-04-2024 Mucus Ql (Urine sed) 0 SEEN /hpf [facility] Nitrite Test strip Ql (U)Ord ered By: Sam Pearl on 02-04-2024 Nitrite Ql (U) Negative Negative [facility] No Panel InformationOrdered By: Sam Pearl on 02-04-2024 Estimated Creatinine Clearance Calc 116.68 ml/min [facility] Estimated GFR (MDRD) Amer 92 mL/min >60 [facility] Comment on above: GFR Calc Estimated GFR (MDRD) Non-Af Amer 76 mL/min >60 [facility] Comment on above: Non- GFR Calc Urine RBC 0-5 SEEN /hpf 0-5 [facility] Protein Test strip Ql (U)Ord ered By: Sam Pearl on 02-04-2024 Protein Ql (U) 15 mg/dl Negative [facility] RBC Auto (Bld) [#/Vol]Ordere d By: Sam Pearl on 02-04-2024 RBC (Bld) [#/Vol] 3.82 10*6/uL 4.2-5.4 [facility] Serum or plasma calcium sharron urement (mass/volume)Ordered By: Sam Pearl on 02-04-2024 Calcium [Mass/Vol] 8.4 mg/dL 8.5-10.1 [facility] Serum or plasma creatinine m easurement (mass/volume)Ordered By: Sam Pearl on 02-04-2024 Creatinine [Mass/Vol] 0.87 mg/dL 0.55-1.02 [facility] Comment on above: The validity of the calculated GFR & GFRAA in patients over 70 years has not been determined. Clinical correlation is essential. Serum or plasma urea nitroge n measurement (mass/volume)Ordered By: Sam Pearl on 02-04-2024 Urea nitrogen [Mass/Vol] 13 mg/dL 7-18 [facility] Squamous epithelial cells de tection in urine sediment by light microscopyOrdered By: Sam Pearl on 02-04-2024 Epithelial cells.squamous LM Ql (Urine sed) 0-5 SEEN /hpf 5-10 [facility] Thin prep Papanicolaou smear with manual screeningOrdered By: Sam Pearl on 02-04-2024 Thin prep Papanicolaou smear with manual screening 8 5-15 [facility] Urine blood detectionOrdered By: Sam Pearl on 02-04-2024 RBC Ql (U) 10 /ul Negative [facility] Urine clarityOrdered By: Ramses Pearl on 02-04-2024 Clarity (U) Clear Clear [facility] Urine color determinationOrd ered By: Sam Pearl on 02-04-2024 Color (U) Yellow Yellow [facility] Urine glucose detectionOrder ed By: Sam Pearl on 02-04-2024 Glucose Ql (U) Normal mg/dl Normal [facility] Urine leukocyte esterase det ection by dipstickOrdered By: Sam Pearl on 02-04-2024 Leukocyte esterase Test strip Ql (U) 100 /ul Negative [facility] Urine pHOrdered By: Sam Pearl on 02-04-2024 pH (U) 7.0 [pH] 5.0 - 8.0 [facility] Urine sediment bacteria coun t by microscopy (number/high power field)Ordered By: Sam Pearl on 02-04-2024 Bacteria LM.HPF (Urine sed) [#/Area] 4 /[HPF] None Seen [facility] Urine specific gravity measu rementOrdered By: Sam Pearl on 02-04-2024 Specific gravity (U) [Rel density] 1.010 1.002-1.030 [facility] Urine urobilinogen measureme ntOrdered By: Sam Pearl on 02-04-2024 Urobilinogen Ql (U) Normal mg/dl Normal [facility] Absolute lymphocyte countOrd ered By: Ivette Patinoo on 12-06-2023 Lymphocytes Auto (Unsp spec) [#/Vol] 2.89 10*3/uL 0.83-4.51 [facility] Automated lymphocyte count a s percentage of total leukocytesOrdered By: Ivette Patinoo on 12-06-2023 Lymphocytes/100 WBC Auto (Unsp spec) 27.0 % 19-41 [facility] Basophil percentageOrdered B y: Ivette Sydney on 12-06-2023 Basophils/100 WBC (Bld) 0.7 % 0-1 [facility] Bilirubin [Mass/Vol] 0.50 mg/dL 0.20-1.00 [facility] Comment on above: For patients on eltr ombopag therapy, use of Dimension [place] TBIL is not recommended. Chloride [Moles/Vol] 113 mmol/L 98-107 [facility] Cholesterol [Mass/Vol] 202 mg/dL <200 [facility] Comment on above: <200 mg/dL Desirable 200-240 mg/dL Borderline >240 mg/dL High Risk Eosinophils/100 WBC (Bld) 1.4 % 0-5 [facility] Glucose [Mass/Vol] 113 mg/dL 74-106 [facility] Comment on above: Fasting Glucose resu lt from 100 to 125 mg/dL suggests IMPAIRED HOMEOSTASIS per A.D.A. criteria. Hemoglobin (Bld) [Mass/Vol] 13.1 g/dL 12.0-15.0 [facility] Monocytes/100 WBC (Bld) 3.6 % 0-10 [facility] Neutrophils (Bld) [#/Vol] 7.1 10*3/uL 2.0-7.7 [facility] Neutrophils/100 WBC (Bld) 66.3 % 47-70 [facility] Potassium [Moles/Vol] 4.0 mmol/L 3.5-5.1 [facility] Protein [Mass/Vol] 8.7 g/dL 6.4-8.2 [facility] Sodium [Moles/Vol] 138 mmol/L 136-145 [facility] Triglyceride [Mass/Vol] 192 mg/dL <199 [facility] Comment on above: The drugs N-Acetylcy steine and Metamizole may falsely depress this assay.Serum Triglycerides Reference Interval Normal <150 mg/dL Borderline high 150 - 199 mg/dL High 200 - 499 mg/dL Very High > or = 500 mg/dL WBC (Bld) [#/Vol] 10.7 10*3/uL 4.4-11.0 [facility] Determination of erythrocyte mean corpuscular volume (MCV)Ordered By: Ivette Grimes on 12-06-2023 MCV (RBC) [Entitic vol] 92.8 fL 81-99 [facility] Erythrocyte distribution wid th ratioOrdered By: Ivette Grimes on 12-06-2023 Erythrocyte distribution width (RBC) [Ratio] 13.1 % 11.6-14.6 [facility] Erythrocyte distribution wid th standard deviationOrdered By: Ivette Grimes on 12-06-2023 Erythrocyte distribution width (RBC) [Entitic vol] 44.4 fL 35.1-43.9 [facility] Hematocrit Auto (Bld) [Volum e fraction]Ordered By: Ivette Grimes on 12-06-2023 Hematocrit (Bld) [Volume fraction] 39.9 % 37-47 [facility] Immature granulocytes/100 WB C Auto (Bld)Ordered By: Ivette Grimes on 12-06-2023 Immature granulocytes/100 WBC (Bld) 1.000 % 0.0-0.9 [facility] Comment on above: IG% - Immature Granu locytes (promyelocytes, myelocytes and metamyelocytes) > 1% indicates that a LEFT SHIFT is Present. Laboratory - Chemistry and C hemistry - challengeOrdered By: Ivette Grimes on 12-06-2023 Albumin/Globulin [Mass ratio] 0.9 {ratio} 0.9-2.4 [facility] ALP [Catalytic activity/Vol] 80 U/L 45-117 [facility] ALT [Catalytic activity/Vol] 24 U/L 13-56 [facility] Cholesterol in HDL (Body fld) [Mass/Vol] 36 mg/dL >40 [facility] Comment on above: The drugs N-Acetylcy steine and Metamizole may falsely depress this assay. Reference Range HDL <40 mg/dL Low HDL Cholesterol HDL >or= 60 mg/dL High HDL Cholesterol Cholesterol in LDL (Body fld) [Moles/Vol] 128 mg/dL 0-130 [facility] Cholesterol in VLDL Calc [Moles/Vol] 38 mg/dL 5-40 [facility] CO2 [Moles/Vol] 19.0 mmol/L 21.0-32.0 [facility] Globulin (S) [Mass/Vol] 4.6 g/dL 2.2-4.2 [facility] Urea nitrogen/Creatinine [Mass ratio] 25.9 mg/mg 10-20 [facility] Laboratory - Hematology and Cell countsOrdered By: Ivette Grimes on 12-06-2023 MCH (RBC) [Entitic mass] 30.5 pg 27.0-32.0 [facility] MCHC (RBC) [Mass/Vol] 32.8 g/dL 32-36 [facility] Nucleated RBC/100 WBC (Bld) [Ratio] 0 % 0-5 [facility] Platelets (Bld) [#/Vol] 241 10*3/uL 150-450 [facility] No Panel InformationOrdered By: Ivette Grimes on 12-06-2023 Estimated GFR (MDRD) Amer 90 mL/min >60 [facility] Comment on above: GFR Calc Estimated GFR (MDRD) Non-Af Amer 74 mL/min >60 [facility] Comment on above: Non- GFR Calc Platelet mean volume Jose-Ec ker (Bld) [Entitic vol]Ordered By: Ivette Grimes on 12-06-2023 Platelet mean volume (Bld) [Entitic vol] 8.8 fL 6.2-12.0 [facility] RBC Auto (Bld) [#/Vol]Ordere d By: Ivette Grimes on 12-06-2023 RBC (Bld) [#/Vol] 4.30 10*6/uL 4.2-5.4 [facility] Serum or plasma calcium sharron urement (mass/volume)Ordered By: Ivette Grimes on 12-06-2023 Calcium [Mass/Vol] 9.1 mg/dL 8.5-10.1 [facility] Serum or plasma creatinine m easurement (mass/volume)Ordered By: Ivette Grimes on 12-06-2023 Creatinine [Mass/Vol] 0.89 mg/dL 0.55-1.02 [facility] Comment on above: The validity of the calculated GFR & GFRAA in patients over 70 years has not been determined. Clinical correlation is essential. Serum or plasma urea nitroge n measurement (mass/volume)Ordered By: Ivette Grimes on 12-06-2023 Urea nitrogen [Mass/Vol] 23 mg/dL 7-18 [facility] Thin prep Papanicolaou smear with manual screeningOrdered By: Ivette Grimes on 12-06-2023 Thin prep Papanicolaou smear with manual screening 4.1 g/dL 3.2-5.0 [facility] Thin prep Papanicolaou smear with manual screening 11 U/L 15-37 [facility] Thin prep Papanicolaou smear with manual screening 6 5-15 [facility] Whole blood hemoglobin A1c/t otal hemoglobin ratio (mass fraction)Ordered By: Ivette Grimes on 12-06-2023 HbA1c (Bld) [Mass fraction] 5.7 % 3.8-5.6 [facility] Comment on above: Normal < 5.7 % Predi abetic 5.7 - 6.4 % Diabetic >or= 6.5 % Please note range changes. Glucose Glucometer (BldC) [M ass/Vol]Ordered By: Sosa Mendez on 08-07-2023 Glucose [Mass/Vol] 157 mg/dL 74-106 [facility] Comment on above: MANAGEMENT OF PATIEN T CARE PER NURSING PROTOCOL Absolute lymphocyte countOrd ered By: Sosa Mendez on 08-06-2023 Lymphocytes Auto (Unsp spec) [#/Vol] 2.45 10*3/uL 0.83-4.51 [facility] Basophil percentageOrdered B y: Sosa Mendez on 10-03-2023 Basophils/100 WBC (Bld) 0.8 % 0-1 [facility] Chloride [Moles/Vol] 111 mmol/L 98-107 [facility] Cholesterol [Mass/Vol] 173 mg/dL <200 [facility] Comment on above: <200 mg/dL Desirable 200-240 mg/dL Borderline >240 mg/dL High Risk Eosinophils/100 WBC (Bld) 3.1 % 0-5 [facility] Glucose [Mass/Vol] 143 mg/dL 74-106 [facility] Comment on above: Fasting Glucose resu lt greater than or equal to 126 mg/dL suggests DIABETES MELLITUS per A.D.A. criteria. Neutrophils (Bld) [#/Vol] 3.9 10*3/uL 2.0-7.7 [facility] Neutrophils/100 WBC (Bld) 54.5 % 47-70 [facility] Potassium [Moles/Vol] 3.6 mmol/L 3.5-5.1 [facility] Sodium [Moles/Vol] 139 mmol/L 136-145 [facility] Triglyceride [Mass/Vol] 325 mg/dL <199 [facility] Comment on above: The drugs N-Acetylcy steine and Metamizole may falsely depress this assay.Serum Triglycerides Reference Interval Normal <150 mg/dL Borderline high 150 - 199 mg/dL High 200 - 499 mg/dL Very High > or = 500 mg/dL WBC (Bld) [#/Vol] 7.1 10*3/uL 4.4-11.0 [facility] Blood erythrocytes count (nu mber/volume)Ordered By: Sosa Mendez on 08-06-2023 RBC (Bld) [#/Vol] 4.15 10*6/uL 4.2-5.4 [facility] Blood hemoglobin measurement (mass/volume)Ordered By: Sosa Mendez on 08-06-2023 Hemoglobin (Bld) [Mass/Vol] 13.0 g/dL 12.0-15.0 [facility] Blood lymphocytes/100 leukoc ytesOrdered By: Sosa Mendez on 08-06-2023 Lymphocytes/100 WBC (Bld) 34.4 % 19-41 [facility] Blood monocytes/100 leukocyt esOrdered By: Sosa Mendez on 08-06-2023 Monocytes/100 WBC (Bld) 5.2 % 0-10 [facility] Blood platelet mean volumeOr dered By: Sosa Mendez on 08-06-2023 Platelet mean volume (Bld) [Entitic vol] 9.4 fL 6.2-12.0 [facility] Determination of erythrocyte mean corpuscular volume (MCV)Ordered By: Sosa Mendez on 08-06-2023 MCV (RBC) [Entitic vol] 95.4 fL 81-99 [facility] Hematocrit Auto (Bld) [Volum e fraction]Ordered By: Sosa Mendez on 08-06-2023 Hematocrit (Bld) [Volume fraction] 39.6 % 37-47 [facility] Laboratory - Chemistry and C hemistry - challengeOrdered By: Sosa Mendez on 08-06-2023 CO2 [Moles/Vol] 23.0 mmol/L 21.0-32.0 [facility] Urea nitrogen/Creatinine [Mass ratio] 15.4 mg/mg 10-20 [facility] Laboratory - Hematology and Cell countsOrdered By: Sosa Mendez on 08-06-2023 Erythrocyte distribution width (RBC) [Entitic vol] 45.4 fL 35.1-43.9 [facility] Erythrocyte distribution width (RBC) [Ratio] 13.0 % 11.6-14.6 [facility] Immature granulocytes/100 WBC (Bld) 2.000 % 0.0-0.9 [facility] Comment on above: IG% - Immature Granu locytes (promyelocytes, myelocytes and metamyelocytes) > 1% indicates that a LEFT SHIFT is Present. MCH (RBC) [Entitic mass] 31.3 pg 27.0-32.0 [facility] Nucleated RBC/100 WBC (Bld) [Ratio] 0 % 0-5 [facility] MCHC Auto (RBC) [Mass/Vol]Or dered By: Sosa Mendez on 08-06-2023 MCHC (RBC) [Mass/Vol] 32.8 g/dL 32-36 [facility] No Panel InformationOrdered By: Sosa Mendez on 08-06-2023 Estimated Creatinine Clearance Calc 92.30 ml/min [facility] Estimated GFR (MDRD) Amer 104 mL/min >60 [facility] Comment on above: GFR Calc Estimated GFR (MDRD) Non-Af Amer 86 mL/min >60 [facility] Comment on above: Non- GFR Calc Platelets bldOrdered By: Shanell Mendez on 08-06-2023 Platelets (Bld) [#/Vol] 184 10*3/uL 150-450 [facility] Serum or plasma calcium sharron urement (mass/volume)Ordered By: Sosa Mendez on 08-06-2023 Calcium [Mass/Vol] 8.2 mg/dL 8.5-10.1 [facility] Serum or plasma cholesterol in HDL measurement (mass/volume)Ordered By: Sosa Mendez on 08-06-2023 Cholesterol in HDL [Mass/Vol] 29 mg/dL >40 [facility] Comment on above: The drugs N-Acetylcy steine and Metamizole may falsely depress this assay. Reference Range HDL <40 mg/dL Low HDL Cholesterol HDL >or= 60 mg/dL High HDL Cholesterol Serum or plasma cholesterol in VLDL measurement (mass/volume)Ordered By: Sosa Mendez on 08-06-2023 Cholesterol in VLDL [Mass/Vol] 65 mg/dL 5-40 [facility] Serum or plasma creatinine m easurement (mass/volume)Ordered By: Sosa Mendez on 08-06-2023 Creatinine [Mass/Vol] 0.78 mg/dL 0.55-1.02 [facility] Comment on above: The validity of the calculated GFR & GFRAA in patients over 70 years has not been determined. Clinical correlation is essential. Serum or plasma low density lipoprotein (LDL) cholesterol measurement (mass/volume)Ordered By: Sosa Mendez on 08-06-2023 Cholesterol in LDL [Mass/Vol] 79 mg/dL 0-130 [facility] Serum or plasma urea nitroge n measurement (mass/volume)Ordered By: Sosa Mendez on 08-06-2023 Urea nitrogen [Mass/Vol] 12 mg/dL 7-18 [facility] Thin prep Papanicolaou smear with manual screeningOrdered By: Sosa Mendez on 08-06-2023 Thin prep Papanicolaou smear with manual screening 5 5-15 [facility] Absolute lymphocyte countOrd ered By: Niurka Kendall on 08-05-2023 Lymphocytes Auto (Unsp spec) [#/Vol] 2.33 10*3/uL 0.83-4.51 [facility] Basophil percentageOrdered B y: Niurka Kendall on 08-05-2023 Basophils/100 WBC (Bld) 0.9 % 0-1 [facility] Chloride [Moles/Vol] 110 mmol/L 98-107 [facility] Eosinophils/100 WBC (Bld) 2.6 % 0-5 [facility] Glucose [Mass/Vol] 108 mg/dL 74-106 [facility] Comment on above: Fasting Glucose resu lt from 100 to 125 mg/dL suggests IMPAIRED HOMEOSTASIS per A.D.A. criteria. Neutrophils (Bld) [#/Vol] 4.7 10*3/uL 2.0-7.7 [facility] Neutrophils/100 WBC (Bld) 59.9 % 47-70 [facility] Potassium [Moles/Vol] 3.7 mmol/L 3.5-5.1 [facility] Sodium [Moles/Vol] 140 mmol/L 136-145 [facility] WBC (Bld) [#/Vol] 7.8 10*3/uL 4.4-11.0 [facility] Blood erythrocytes count (nu mber/volume)Ordered By: Niurka Kendall on 08-05-2023 RBC (Bld) [#/Vol] 4.04 10*6/uL 4.2-5.4 [facility] Blood hemoglobin measurement (mass/volume)Ordered By: Niurka Kendall on 08-05-2023 Hemoglobin (Bld) [Mass/Vol] 12.9 g/dL 12.0-15.0 [facility] Blood lymphocytes/100 leukoc ytesOrdered By: Niurka Kendall on 08-05-2023 Lymphocytes/100 WBC (Bld) 30.1 % 19-41 [facility] Blood monocytes/100 leukocyt esOrdered By: Niurka Kendall on 08-05-2023 Monocytes/100 WBC (Bld) 5.2 % 0-10 [facility] Blood platelet mean volumeOr dered By: Niurka Kendall on 08-05-2023 Platelet mean volume (Bld) [Entitic vol] 9.7 fL 6.2-12.0 [facility] COVID-19 virus antigen assay Ordered By: Niurka Kendall on 08-05-2023 SARS-CoV-2 (COVID-19) Ag IA.rapid Ql (Resp) [facility] SARS-CoV-2 (COVID-19) Ag IA.rapid Ql (Resp) [facility] Determination of erythrocyte mean corpuscular volume (MCV)Ordered By: Niurka Kendall on 08-05-2023 MCV (RBC) [Entitic vol] 97.8 fL 81-99 [facility] Glucose Glucometer (dC) [M ass/Vol]Ordered By: Niurka Kendall on 08-05-2023 Glucose [Mass/Vol] 120 mg/dL 74-106 [facility] Comment on above: MANAGEMENT OF PATIEN T CARE PER NURSING PROTOCOL Hematocrit Auto (Bld) [Volum e fraction]Ordered By: Niurka Kendall on 08-05-2023 Hematocrit (Bld) [Volume fraction] 39.5 % 37-47 [facility] INR in Blood by Coagulation assayOrdered By: Niurka Kendall on 08-05-2023 INR Coag (Bld) [Relative time] 1.1 {INR} [facility] Laboratory - Chemistry and C hemistry - challengeOrdered By: Niurka Kendall on 08-05-2023 CO2 [Moles/Vol] 24.0 mmol/L 21.0-32.0 [facility] Urea nitrogen/Creatinine [Mass ratio] 20.8 mg/mg 10 [facility] Laboratory - CoagulationOrde red By: Niurka Kendall on 08-05-2023 aPTT Coag (Bld) [Time] 32.7 s 24.1-36.2 [facility] PT Coag (PPP) [Time] 14.4 s 11.7-14.9 [facility] Laboratory - Hematology and Cell countsOrdered By: Niurka Kendall on 08-05-2023 Erythrocyte distribution width (RBC) [Entitic vol] 47.0 fL 35.1-43.9 [facility] Erythrocyte distribution width (RBC) [Ratio] 13.1 % 11.6-14.6 [facility] Immature granulocytes/100 WBC (Bld) 1.300 % 0.0-0.9 [facility] Comment on above: IG% - Immature Granu locytes (promyelocytes, myelocytes and metamyelocytes) > 1% indicates that a LEFT SHIFT is Present. MCH (RBC) [Entitic mass] 31.9 pg 27.0-32.0 [facility] Nucleated RBC/100 WBC (Bld) [Ratio] 0 % 0-5 [facility] MCHC Auto (RBC) [Mass/Vol]Or dered By: Niurka Kendall on 08-05-2023 MCHC (RBC) [Mass/Vol] 32.7 g/dL 32-36 [facility] No Panel InformationOrdered By: Niurka Kendall on 08-05-2023 Estimated Creatinine Clearance Calc 99.99 ml/min [facility] Estimated GFR (MDRD) Amer 115 mL/min >60 [facility] Comment on above: GFR Calc Estimated GFR (MDRD) Non-Af Amer 95 mL/min >60 [facility] Comment on above: Non- GFR Calc Thyroid Stimulating Hormone (TSH) 1.54 uIU/mL 0.358-3.74 [facility] Troponin I High Sensitivity 4 pg/mL 3.0-54.0 [facility] Comment on above: Please Note: New Ananth t Units and Gender Specific Reference Ranges. For more information see Policy Stat Procedure [place] High Sensitivity Troponin (TNIH) and attachments. Platelets bldOrdered By: Romina Kendall on 08-05-2023 Platelets (Bld) [#/Vol] 190 10*3/uL 150-450 [facility] Serum or plasma calcium sharron urement (mass/volume)Ordered By: Niurka Kendall on 08-05-2023 Calcium [Mass/Vol] 8.5 mg/dL 8.5-10.1 [facility] Serum or plasma creatinine m easurement (mass/volume)Ordered By: Niurka Kendall on 08-05-2023 Creatinine [Mass/Vol] 0.72 mg/dL 0.55-1.02 [facility] Comment on above: The validity of the calculated GFR & GFRAA in patients over 70 years has not been determined. Clinical correlation is essential. Serum or plasma urea nitroge n measurement (mass/volume)Ordered By: Niurka Kendall on 08-05-2023 Urea nitrogen [Mass/Vol] 15 mg/dL 7-18 [facility] Thin prep Papanicolaou smear with manual screeningOrdered By: Niurka Kendall on 08-05-2023 Thin prep Papanicolaou smear with manual screening 6 5-15 [facility] Whole blood hemoglobin A1c/t otal hemoglobin ratio (mass fraction)Ordered By: Sosa Mendez on 08-05-2023 HbA1c (Bld) [Mass fraction] 6.6 % 3.8-5.6 [facility] Comment on above: Normal < 5.7 % Predi abetic 5.7 - 6.4 % Diabetic >or= 6.5 % Please note range changes. XR Foot - right AP and Later al and obliqueon 05-28-2023 IMPRESSION: No acute osseous abnormalities are identified. Calcaneal spurring. First Cook[facility] Transcribe Date/Time: May 28 2023 11:55A Dictated by : BRITTANY MCCANN MD This examination was interpreted and the report reviewed and electronically signed by: BRITTANY MCCANN MD on May 28 2023 11:56AM [facility] DIVISION OF RADIOLOGY * * *Final [...] and calcaneal enthesophytes. DIVISION OF RADIOLOGY Provider, [facility] [place] - 05/28/2023 * * *Final Report* * [...] acute osseous abnormalities are identified. Calcaneal spurring. First Cook: DIANE Transcribe Date/Time: May 28 2023 11:55A Dictated by : BRITTANY MCCANN MD This examination was interpreted and the report reviewed and electronically signed by: BRITTANY MCCANN MD on May 28 2023 11:56AM EST [facility] Radiology Study observation (narrative) [facility] X[facility] Foot - right AP and Later al and obliqueOrdered By: [facility] Provider on 05-28-2023 [facility] Absolute lymphocyte countOrd ered By: Dr. Grimes on 03-04-2023 Lymphocytes Auto (Unsp spec) [#/Vol] 2.34 10*3/uL 0.83-4.51 [facility] Basophil percentageOrdered B y: Dr. Grimes on 03-04-2023 Basophils/100 WBC (Bld) 1.0 % 0-1 [facility] Chloride [Moles/Vol] 109 mmol/L 98-107 [facility] Eosinophils/100 WBC (Bld) 2.3 % 0-5 [facility] Glucose [Mass/Vol] 142 mg/dL 74-106 [facility] Comment on above: Fasting Glucose resu lt greater than or equal to 126 mg/dL suggests DIABETES MELLITUS per A.D.A. criteria. Neutrophils (Bld) [#/Vol] 5.6 10*3/uL 2.0-7.7 [facility] Neutrophils/100 WBC (Bld) 63.9 % 47-70 [facility] Potassium [Moles/Vol] 3.9 mmol/L 3.5-5.1 [facility] Sodium [Moles/Vol] 138 mmol/L 136-145 [facility] WBC (Bld) [#/Vol] 8.8 10*3/uL 4.4-11.0 [facility] Blood erythrocytes count (nu mber/volume)Ordered By: Dr. Grimes on 03-04-2023 RBC (Bld) [#/Vol] 4.38 10*6/uL 4.2-5.4 [facility] Blood hemoglobin measurement (mass/volume)Ordered By: Dr. Grimes on 03-04-2023 Hemoglobin (Bld) [Mass/Vol] 14.1 g/dL 12.0-15.0 [facility] Blood lymphocytes/100 leukoc ytesOrdered By: Dr. Grimes on 03-04-2023 Lymphocytes/100 WBC (Bld) 26.5 % 19-41 [facility] Blood monocytes/100 leukocyt esOrdered By: Dr. Grimes on 03-04-2023 Monocytes/100 WBC (Bld) 4.6 % 0-10 [facility] Blood platelet mean volumeOr dered By: Dr. Grimes on 03-04-2023 Platelet mean volume (Bld) [Entitic vol] 9.5 fL 6.2-12.0 [facility] Determination of erythrocyte mean corpuscular volume (MCV)Ordered By: Dr. Grimes on 03-04-2023 MCV (RBC) [Entitic vol] 96.8 fL 81-99 [facility] Hematocrit Auto (Bld) [Volum e fraction]Ordered By: Dr. Grimes on 03-04-2023 Hematocrit (Bld) [Volume fraction] 42.4 % 37-47 [facility] Iron measurement (mass/mass) Ordered By: Dr. Grimes on 03-04-2023 Iron (Unsp spec) [Mass/Mass] 92 ug/dL 50-170 [facility] Laboratory - Chemistry and C hemistry - challengeOrdered By: Dr. Grimes on 03-04-2023 CO2 [Moles/Vol] 21.0 mmol/L 21.0-32.0 [facility] Magnesium [Mass/Vol] 1.7 mg/dL 1.6-2.6 [facility] Urea nitrogen/Creatinine [Mass ratio] 17.1 mg/mg 10-20 [facility] Laboratory - Hematology and Cell countsOrdered By: Dr. Grimes on 03-04-2023 Erythrocyte distribution width (RBC) [Entitic vol] 48.1 fL 35.1-43.9 [facility] Erythrocyte distribution width (RBC) [Ratio] 13.3 % 11.6-14.6 [facility] Immature granulocytes/100 WBC (Bld) 1.700 % 0.0-0.9 [facility] Comment on above: IG% - Immature Granu locytes (promyelocytes, myelocytes and metamyelocytes) > 1% indicates that a LEFT SHIFT is Present. MCH (RBC) [Entitic mass] 32.2 pg 27.0-32.0 [facility] Nucleated RBC/100 WBC (Bld) [Ratio] 0 % 0-5 [facility] MCHC Auto (RBC) [Mass/Vol]Or dered By: Dr. Grimes on 03-04-2023 MCHC (RBC) [Mass/Vol] 33.3 g/dL 32-36 [facility] No Panel InformationOrdered By: Dr. Grimes on 03-04-2023 Urine Microalbumin/Creatinine Ratio 63.0 mg/g CRE <30 [facility] Estimated GFR (MDRD) Amer 99 mL/min >60 [facility] Comment on above: GFR Calc Estimated GFR (MDRD) Non-Af Amer 82 mL/min >60 [facility] Comment on above: Non- GFR Calc Total Iron Binding Capacity 323 ug/dL 250-450 [facility] Platelets bldOrdered By: Dr. Grimes on 03-04-2023 Platelets (Bld) [#/Vol] 214 10*3/uL 150-450 [facility] Serum or plasma calcium sharron urement (mass/volume)Ordered By: Dr. Grimes on 03-04-2023 Calcium [Mass/Vol] 8.4 mg/dL 8.5-10.1 [facility] Serum or plasma creatinine m easurement (mass/volume)Ordered By: Dr. Grimes on 03-04-2023 Creatinine [Mass/Vol] 0.82 mg/dL 0.55-1.02 [facility] Comment on above: The validity of the calculated GFR & GFRAA in patients over 70 years has not been determined. Clinical correlation is essential. Serum or plasma iron saturat ion measurement (mass fraction)Ordered By: Dr. Grimes on 03-04-2023 Iron saturation [Mass fraction] 28.5 % 15.0-55.0 [facility] Serum or plasma urea nitroge n measurement (mass/volume)Ordered By: Dr. Grimes on 03-04-2023 Urea nitrogen [Mass/Vol] 14 mg/dL 7-18 [facility] Thin prep Papanicolaou smear with manual screeningOrdered By: Dr. Grimes on 03-04-2023 Thin prep Papanicolaou smear with manual screening 133.0 mg/L NO RANGE EST. [facility] Thin prep Papanicolaou smear with manual screening 8 5-15 [facility] Urine creatinine measurement (mass/volume)Ordered By: Dr. Grimes on 03-04-2023 Creatinine (U) [Mass/Vol] 211.00 mg/dL NO RANGE EST. [facility] Whole blood hemoglobin A1c/t otal hemoglobin ratio (mass fraction)Ordered By: Dr. Grimes on 03-04-2023 HbA1c (Bld) [Mass fraction] 6.1 % 3.8-5.6 [facility] Comment on above: Normal < 5.7 % Predi abetic 5.7 - 6.4 % Diabetic >or= 6.5 % Please note range changes. No Panel Informationon 02-28 [facility] CNCOon 01-24-2023 CNCO Letter Text Normal [facility] CNOVon 01-24-2023 CNOV Office Visit (SPAGWO) ---- TORI GRAY ([id number]) 1980 F Date Time Provider Department 01/24/23 10:30 AM ELLE RASHEED During your visit today, we recorded the following information about you: Pulse Respiration Last Period 64/minute 16/minute 01/02/23 Elle Rasheed MD 01/24/2023 11:07 AM Signed [facility] Name: Tori Gray : 1980 Purpose: Follow-up, discuss SPRINT Today's Date: 01/24/2023 Last Visit: 11/08/2022 (OV REVIEW ASSISTANT) Chief complaint: LEFT shoulder pain Rosiechelsey Gray [...] [facility] CNPIliana 01-24-2023 CNPN Telephone (SPAGWO) ---- TORI GRAY ([id number]) 1980 F Date Time Provider Department 01/24/23 ELLE RASHEED SPAGWO During your visit today, [...] dose of the COVID vaccine.) Pankaj Murillo Allergies As of Date: 01/24/2023 Noted Allergy [...] by INTRAUTERINE route as directed. - Ipratropium Hadley (ATROVENT) 0.03 % nasal spray Use 2 Sprays in the nose every 12 hours. - metroNIDAZOLE (METROGEL) 0.75 % Topical Gel Apply to affected area twice daily. - [place]-3 Fatty Acids (FISH OIL) 500 mg cap Take 1 capsule by mouth once daily. - blood sugar diagnostic (BLOOD GLUCOSE TEST) test strip Test blood sugar(s) 1 times daily. Dx: Type 2 DM - Controlled E11.9 Insulin: Yes - Lancets lancets Test blood sugar(s) 1 times daily. Dx: Type 2 DM - Controlled E11.9 Insulin: No - Zlllffdl-Uo-Flu-Fe- FA tab Take 1 tablet by mouth [...] 05/06/2009 01/23/2010 Routine general medical examination at [facility]*01/23/2010 12/06/2012 Class: Chronic Routine gynecological examination [Z01.419] 01/23/2010 02/22/2014 Class: Chronic Morbid Obesity [E66.01] 01/23/2010 Lumbar Disc Disorder [M51.9] 02/16/2010 (more content not included)... Normal [facility] HCG ( test) Ql (U)o n 01-02-2023 Specific gravity (U) [Rel density] 1.010 Normal 1.005-1.030 [facility] Comment on above: Order Comment: Speci men Type: URINE SPECIMENOrdering Facility: [facility] Address: [address] [place], [place] [address] [address] Performed By: #### 2 106-3 ####[facility] [id number] [place] [id number] [facility] HCG Preg Ur Qlon 01-02-2023 HCG ( test) Ql (U) Negative Normal Negative [facility] Comment on above: Order Comment: Speci men Type: URINE SPECIMENOrdering Facility: [facility] Address: [place] [address] Result Comment: This test is intended to aid in the early detection of . Very dilute urine samples, as indicated by a low specific gravity, may not contain customer service representative levels of hCG. This test detects [...] for . Performed By: #### 2 106-3 ####[facility] [id number] [place] [address] [facility] HISTORY PHYSICALon HISTORY PHYSICAL HNO ID: [id number] Author: Elle Rasheed MD Service: Pain Management [...] 1/2 hr before meal. Unknown Yes Ipratropium Hadley (ATROVENT) 0.03 % nasal spray Use 2 Sprays in the nose every 12 hours. Unknown Yes [place]-3 Fatty Acids (FISH OIL) 500 mg cap Take 1 capsule by mouth once daily. Patient taking differently: Take 1 tablet by mouth once daily. 1200 mg 01/02/2023 Yes blood sugar diagnostic (BLOOD GLUCOSE TEST) test strip Test blood sugar(s) 1 times daily. Dx: Type 2 DM - Controlled E11.9 Insulin: Yes Yes Txivztjn-Lm-Iwy-Fe- FA tab Take 1 tablet by mouth [...] OPERATIVE NOon 01-02-2023 OPERATIVE NO HNO ID: [id number] Author: Elle Rasheed MD Service: Pain Management Author Type: Physician Type: Operative Report Filed: 01/02/2023 11:29 AM Note Text: OPERATIVE/PROCEDURE REPORT LOG ID: [id number] SURGERY/PROCEDURE DATE: 01/02/2023 INCISION/PROCEDURE START TIME: 11:18 AM INCISION CLOSE/PROCEDURE END TIME: 11:25 AM SURGEON(S)/PROCEDBRYSON WEST(S) AND HUMAN SERVICE SPECIALIST(S): Surgeon(s) and Role: * Elle Rasheed MD [...] DATE: January 02, 2023 TIME: 11:28 AM [facility] Hany 11-29-2022 [facility] Telephone (AGSPINE3) ---- TORI GRAY ([id number]) 1980 F Date Time Provider Department 11/29/22 ELLE RASHEED AGSPINE3 During your visit today, we recorded the following information about you: Darrion Barahona 11/29/2022 2:40 PM Signed Patient has left a voicemail stating that she had fallen over the weekend and has a concussion. She is wondering if she should reschedule her appointment for 12/05/22 with you in [place] as she is not sure if this [...] to reschedule out to January 02 at [place], message has been sent to [place]. Darrion Shah Allergies As of Date: 11/29/2022 Noted Allergy Reaction LIDOCAINE 12/24/2019 4 - Hives STEROIDS (BETAMETHASONE DIPROPION* 2 4 - Hives Date Reviewed: 11/27/2022 Reviewed by: Dennise Robles - Fully Assessed Reason for Visit: Patient Question [[id number]] Cmt: [place] appointment on 12/05/22 Prescriptions as of 11/30/2022 [...] by INTRAUTERINE route as directed. - Ipratropium Hadley (ATROVENT) 0.03 % nasal spray Use 2 Sprays in the nose every 12 hours. - metroNIDAZOLE (METROGEL) 0.75 % Topical Gel Apply to affected area twice daily. - [place]-3 Fatty Acids (FISH OIL) 500 mg cap Take 1 capsule by mouth once daily. - blood sugar diagnostic (BLOOD GLUCOSE TEST) test strip Test blood sugar(s) 1 times daily. Dx: Type 2 DM - Controlled E11.9 Insulin: Yes - Lancets lancets Test blood sugar(s) 1 times daily. Dx: Type 2 DM - Controlled E11.9 Insulin: No - Mweohrnz-Tn-Uov-Fe- FA tab Take 1 tablet by mouth [...] on 11-24-2022 Glucose [Mass/Vol] 89 mg/dL 74-106 [facility] Comment on above: MANAGEMENT OF PATIREUBEN T CARE PER NURSING PROTOCOL CNOVon 11-08-2022 CNOV Office Visit (SPAGWO) ---- TORI GRAY ([id number]) 1980 F Date Time Provider Department 11/08/22 [...] The patient is not nervous/anxious. Adelina Marinelli APRN.CHEMISTRY LECTURER 11/08/2022 1:55 PM Signed [facility] Today's Date: 11/08/2022 Last Visit: 07/19/22 [...] moderately severe depression, (20-27) severe depression Compliance: [facility] checked and validated. All prescriptions have been APPROPRIATELY filled. No suspicious activity was identified. 11/08/2022 by Adelina Marinelli APRN.CHEMISTRY LECTURER Allergies: ALLERGIES Allergen Reactions Lidocaine Hives Steroids [...] included)... Normal [facility] Hany 11-08-2022 CNPN Telephone (SPAGWO) ---- TORI GRAY ([id number]) 1980 F Date Time Provider Department 11/08/22 [...] No 9. Does this procedure require a chain saw driver? Yes If yes, has patient been notified that a chain saw driver is needed and must be present [...] Date Reviewed: 11/08/2022 Reviewed by: Adelina Marinelli APRN.CHEMISTRY LECTURER - Fully Assessed Reason for Visit: Injections [...] by INTRAUTERINE route as directed. - Ipratropium Hadley (ATROVENT) 0.03 % nasal spray Use 2 Sprays in the nose every 12 hours. - metroNIDAZOLE (METROGEL) 0.75 % Topical Gel Apply to affected area twice daily. - [place]-3 Fatty Acids (FISH OIL) 500 mg cap Take 1 capsule by mouth once daily. - blood sugar diagnostic (BLOOD GLUCOSE TEST) test strip Test blood sugar(s) 1 times daily. Dx: Type 2 DM - Controlled E11.9 Insulin: Yes - Lancets lancets Test blood sugar(s) 1 times daily. Dx: Type 2 DM - Controlled E11.9 Insulin: No - Zqdqykgy-Zq-Llp-Fe- FA tab Take 1 tablet by mouth [...] included)... Normal [facility] (AGSPINE2) ---- TORI GRAY ([id number]) 1980 F Date Time Provider Department 10/02/22 [...] spoke with and scheduled with Adelina in [place] beginning of the year. Adriana Licona Allergies As of Date: 10/02/2022 Noted Allergy Reaction LIDOCAINE 12/24/2019 4 - Hives STEROIDS (BETAMETHASONE DIPROPION* 2 4 - Hives Date Reviewed: 09/04/2022 Reviewed by: Dennise Robles - Fully Assessed Reason for Visit: Appointment [[id number]] Patient Question [[id number]] Prescriptions as of 10/02/2022 - tiZANidine (ZANAFLEX) [...] bed with current PAP mask. - Ipratropium Hadley (ATROVENT) 0.03 % nasal spray Use 2 Sprays in the nose every 12 hours. - metroNIDAZOLE (METROGEL) 0.75 % Topical Gel Apply to affected area twice daily. - [place]-3 Fatty Acids (FISH OIL) 500 mg cap Take 1 capsule by mouth once daily. - blood sugar diagnostic (BLOOD GLUCOSE TEST) test strip Test blood sugar(s) 1 times daily. Dx: Type 2 DM - Controlled E11.9 Insulin: Yes - Lancets lancets Test blood sugar(s) 1 times daily. Dx: Type 2 DM - Controlled E11.9 Insulin: No - Mgczpghz-Oj-Fko-Fe- FA tab Take 1 tablet by mouth [...] 05/06/2009 01/23/2010 Routine general medical examination at [facility] [place] [facility]*01/23/2010 12/06/2012 Class: Chronic Routine gynecological examination [Z01.419] 01/23/2010 02/22/2014 Class: Chronic Morbid Obesity [E66.01] 01/23/2010 Lumbar Disc Disorder [M51.9] 02/16/2010 Routine general medical examination at [facility] [place]*12/06/2012 02/22/2014 Anxiety [F41.9] 06/07/2014 Type 2 [...] spec) [#/Vol] 2.67 10*3/uL 0.83-4.51 [facility] Basophil percentageOrdered B y: Dr. Grimes on 09-06-2022 Basophils/100 WBC (Bld) 0.5 % 0-1 [facility] Chloride [Moles/Vol] 110 mmol/L 98-[facility] Eosinophils/100 WBC (Bld) 2.1 % 0-5 [facility] Glucose [Mass/Vol] 120 mg/dL 74-106 [facility] Comment on above: Fasting Glucose resu lt from 100 to 125 mg/dL suggests IMPAIRED HOMEOSTASIS per A.D.A. criteria. Neutrophils (Bld) [#/Vol] 6.2 10*3/uL 2.0-7.7 [facility] Neutrophils/100 WBC (Bld) 64.2 % 47-70 [facility] Potassium [Moles/Vol] 3.6 mmol/L 3.5-5.1 [facility] Sodium [Moles/Vol] 139 mmol/L 136-145 [facility] WBC (Bld) [#/Vol] 9.6 10*3/uL 4.4-11.0 [facility] Blood erythrocytes count (nu mber/volume)Ordered By: Dr. Grimes on 09-06-2022 RBC (Bld) [#/Vol] 4.29 10*6/uL 4.2-5.4 [facility] Blood hemoglobin measurement (mass/volume)Ordered By: Dr. Grimes on 09-06-2022 Hemoglobin (Bld) [Mass/Vol] 13.6 g/dL 12.0-15.0 [facility] Blood lymphocytes/100 leukoc ytesOrdered By: Dr. Grimes on 09-06-2022 Lymphocytes/100 WBC (Bld) 27.8 % 19-41 [facility] Blood monocytes/100 leukocyt esOrdered By: Dr. Grimes on 09-06-2022 Monocytes/100 WBC (Bld) 4.3 % 0-10 [facility] Blood platelet mean volumeOr dered By: Dr. Grimes on 09-06-2022 Platelet mean volume (Bld) [Entitic vol] 9.6 fL 6.2-12.0 [facility] Determination of erythrocyte mean corpuscular volume (MCV)Ordered By: Dr. Grimes on 09-06-2022 MCV (RBC) [Entitic vol] 90.2 fL 81-99 [facility] Hematocrit Auto (Bld) [Volum e fraction]Ordered By: Dr. Grimes on 09-06-2022 Hematocrit (Bld) [Volume fraction] 38.7 % 37-47 [facility] Laboratory - Chemistry and C hemistry - challengeOrdered By: Dr. Grimes on 09-06-2022 CO2 [Moles/Vol] 23.0 mmol/L 21.0-32.0 [facility] Urea nitrogen/Creatinine [Mass ratio] 15.9 mg/mg 10-20 [facility] Laboratory - Hematology and Cell countsOrdered By: Dr. Grimes on 09-06-2022 Erythrocyte distribution width (RBC) [Entitic vol] 42.5 fL 35.1-43.9 [facility] Erythrocyte distribution width (RBC) [Ratio] 12.9 % 11.6-14.6 [facility] Immature granulocytes/100 WBC (Bld) 1.100 % 0.0-0.9 [facility] Comment on above: IG% - Immature Granu locytes (promyelocytes, myelocytes and metamyelocytes) > 1% indicates that a LEFT SHIFT is Present. MCH (RBC) [Entitic mass] 31.7 pg 27.0-32.0 [facility] Nucleated RBC/100 WBC (Bld) [Ratio] 0 % 0-5 [facility] MCHC Auto (RBC) [Mass/Vol]Or dered By: Dr. Grimes on 09-06-2022 MCHC (RBC) [Mass/Vol] 35.1 g/dL 32-36 [facility] No Panel InformationOrdered By: Dr. Grimes on 09-06-2022 Estimated GFR (MDRD) Amer 100 mL/min >60 [facility] Comment on above: GFR Calc Estimated GFR (MDRD) Non-Af Amer 82 mL/min >60 [facility] Comment on above: Non- GFR Calc Thyroid Stimulating Hormone (TSH) 1.56 uIU/mL 0.358-3.74 [facility] Platelets bldOrdered By: Dr. Grimes on 09-06-2022 Platelets (Bld) [#/Vol] 190 10*3/uL 150-450 [facility] Serum or plasma calcium sharron urement (mass/volume)Ordered By: Dr. Grimes on 09-06-2022 Calcium [Mass/Vol] 8.7 mg/dL 8.5-10.1 [facility] Serum or plasma creatinine m easurement (mass/volume)Ordered By: Dr. Grimes on 09-06-2022 Creatinine [Mass/Vol] 0.82 mg/dL 0.55-1.02 [facility] Comment on above: The validity of the calculated GFR & GFRAA in patients over 70 years has not been determined. Clinical correlation is essential. Serum or plasma urea nitroge n measurement (mass/volume)Ordered By: Dr. Grimes on 09-06-2022 Urea nitrogen [Mass/Vol] 13 mg/dL 7-18 [facility] Thin prep Papanicolaou smear with manual screeningOrdered By: Dr. Grimes on 09-06-2022 Thin prep Papanicolaou smear with manual screening 6 5-15 [facility] Laboratory - Chemistry and C hemistry - challengeOrdered By: Dr. Guerrero on 08-29-2022 Magnesium [Mass/Vol] 1.7 mg/dL 1.6-2.6 [facility] Basophil percentageOrdered B y: Dr. Grimes on 08-08-2022 Cholesterol [Mass/Vol] 168 mg/dL <200 [facility] Comment on above: <200 mg/dL Desirable 200-240 mg/dL Borderline >240 mg/dL High Risk Triglyceride [Mass/Vol] 176 mg/dL <199 [facility] Comment on above: The drugs N-Acetylcy steine and Metamizole may falsely depress this assay.Serum Triglycerides Reference Interval Normal <150 mg/dL Borderline high 150 - 199 mg/dL High 200 - 499 mg/dL Very High > or = 500 mg/dL Hany 08-08-2022 [facility] Telephone (AGSPHWG) ---- TORI GRAY ([id number]) 1980 F Date Time Provider Department 08/08/22 ADELINA MARINELLI During your visit today, we [...] the order. Thank you, Adelina Marinelli APRN.GABRIELA Murillo 08/10/2022 2:13 PM Signed Left patient a detailed message informing her of this information. Also left the number for her to call back. Allergies As of Date: 08/08/2022 Noted Allergy Reaction LIDOCAINE 12/24/2019 4 - Hives STEROIDS (BETAMETHASONE DIPROPION* 2 4 - Hives Date Reviewed: 07/19/2022 Reviewed by: Karen Bansal APRN.CHEMISTRY LECTURER - Fully Assessed Reason for Visit: Patient [...] bed with current PAP mask. - Ipratropium Hadley (ATROVENT) 0.03 % nasal spray Use 2 Sprays in the nose every 12 hours. - metroNIDAZOLE (METROGEL) 0.75 % Topical Gel Apply to affected area twice daily. - [place]-3 Fatty Acids (FISH OIL) 500 mg cap Take 1 capsule by mouth once daily. - blood sugar diagnostic (BLOOD GLUCOSE TEST) test strip Test blood sugar(s) 1 times daily. Dx: Type 2 DM - Controlled E11.9 Insulin: Yes - Lancets lancets Test blood sugar(s) 1 times daily. Dx: Type 2 DM - Controlled E11.9 Insulin: No - Zijqqevp-Ex-Msr-Fe- FA tab Take 1 tablet by mouth [...] 05/06/2009 01/23/2010 Routine general medical examination at [facility] [place] [facility]*01/23/2010 12/06/2012 Class: Chronic Routine gynecological examination [Z01.419] 01/23/2010 02/22/2014 Class: Chronic Morbid Obesity [E66.01] 01/23/2010 Lumbar Disc Disorder [M51.9] 02/16/2010 Routine general medical examination at [facility] [place]*12/06/2012 02/22/2014 Anxiety [F41.9] 06/07/2014 Type 2 diabetes mellitus with microalbuminuria,*0 07/04/2018 Fatty liver [K76.0] 07/21/2018 LETITIA (obstructive sleep apnea) [G47.33] 07/21/2018 Microalbuminuria [R80.9] 09/30/2018 Obesity, Class III, BMI >= 40 [E66.01] 11/26/2019 Prolonged Q-T interval on ECG [R94.31] 03/31/2020 Encounter Status:Closed by ADELINA MARINELLI on 08/08/22 [facility] No Panel InformationOrdered By: Dr. Grimes on 08-08-2022 Thyroid Stimulating Hormone (TSH) 3.38 uIU/mL 0.358-3.74 [facility] Serum or plasma cholesterol in HDL measurement (mass/volume)Ordered By: Dr. Grimes on 08-08-2022 Cholesterol in HDL [Mass/Vol] 37 mg/dL >40 [facility] Comment on above: The drugs N-Acetylcy steine and Metamizole may falsely depress this assay. Reference Range HDL <40 mg/dL Low HDL Cholesterol HDL >or= 60 mg/dL High HDL Cholesterol Serum or plasma cholesterol in VLDL measurement (mass/volume)Ordered By: Dr. Grimes on 08-08-2022 Cholesterol in VLDL [Mass/Vol] 35 mg/dL 5-40 [facility] Serum or plasma low density lipoprotein (LDL) cholesterol measurement (mass/volume)Ordered By: Dr. Grimes on 08-08-2022 Cholesterol in LDL [Mass/Vol] 96 mg/dL 0-130 [facility] Whole blood hemoglobin A1c/t otal hemoglobin ratio (mass fraction)Ordered By: Dr. Grimes on 08-08-2022 HbA1c (Bld) [Mass fraction] 5.3 % 3.8-5.6 [facility] Comment on above: Normal < 5.7 % Predi abetic 5.7 - 6.4 % Diabetic >or= 6.5 % Please note range changes. Anuj 07-19-2022 CNCO Letter Text [facility] CNOVon 07-19-2022 CNOV Office Visit (SPAGWO) ---- TORI GRAY ([id number]) 1980 F Date Time Provider Department 07/19/22 9:45 AM ADELINA MARINELLIGWAsha During your visit today, we recorded the [...] The patient is not nervous/anxious. Adelina Marinelli APRN.CHEMISTRY LECTURER 07/19/2022 10:17 AM Signed [facility] Today's Date: 07/19/2022 Last Visit: 05/24/22 [...] (A) 74 - 99 mg/dL Final Comment: Location:[facility], [address] [place] [address], [facility] The Accu-Chek Inform II glucose [...] activity was identified. 07/19/2022 by Adelina Marinelli APRN.[facility] Last Drug screen: Not Applicable Risk Assessment: VAHE-7: (more content not included)... Normal [facility] CNPIliana 07-19-2022 CNPN Telephone (SPAGWO) ---- TORI GRAY ([id number]) 1980 F Date Time Provider Department 07/19/22 ELLE RASHEED SPAGWAsha During your visit today, we recorded the [...] year? Yes If yes, When and Where? [place], currently attending (Medical Records Release needs to [...] Date Reviewed: 07/19/2022 Reviewed by: Adelina Marinelli APRN.CHEMISTRY LECTURER - Fully Assessed Reason for Visit: Patient [...] bed with current PAP mask. - Ipratropium Hadley (ATROVENT) 0.03 % nasal spray Use 2 Sprays in the nose every 12 hours. - metroNIDAZOLE (METROGEL) 0.75 % Topical Gel Apply to affected area twice daily. - [place]-3 Fatty Acids (FISH OIL) 500 mg cap Take 1 capsule by mouth once daily. - blood sugar diagnostic (BLOOD GLUCOSE TEST) test strip Test blood sugar(s) 1 times daily. Dx: Type 2 DM - Controlled E11.9 Insulin: Yes - Lancets lancets Test blood sugar(s) 1 times daily. Dx: Type 2 DM - Controlled E11.9 Insulin: No - Pwnmmypr-Rm-Ylx-Fe- FA tab Take 1 tablet by mouth [...] 05/06/2009 01/23/2010 Routine general medical examination at [facility]*01/23/2010 12/06/2012 Class: Chronic Routine gynecological examination [Z01.419] 01/23/2010 02/22/2014 Class: Chronic Morbid Obesity [E66.01] 01/23/2010 Lumbar Disc Disorder [M51.9] 02/16/2010 Routine general medical examination at [facility]*12/06/2012 02/22/2014 Anxiety [F41.9] 06/07/2014 Type 2 diabetes mellitus with microalbuminuria,*0 07/04/2018 Fatty liver [K76.0] 07/21/2018 LETITIA (obstructive sleep apnea) [G47 (more content not included)... Normal [facility] Absolute lymphocyte counton 06-05-2022 Lymphocytes Auto (Unsp spec) [#/Vol] 2.26 10*3/uL 0.83-4.51 [facility] Work Phone: Absolute reticulocyte counto n 06-05-2022 Reticulocytes (Bld) [#/Vol] 0.00 10*3/uL 0-5 [facility] Work Phone: Basophil percentageon 2021 Basophil percentage 3.4 mg/dL 2.5-4.9 [facility] Work Phone: Bilirubin [Mass/Vol] 0.60 mg/dL 0.20-1.00 [facility] Work Phone: Comment on above: For patients on eltr ombopag therapy, use of Dimension [place] TBIL is not recommended. Chloride [Moles/Vol] 108 mmol/L 98-107 [facility] Work Phone: Cholesterol [Mass/Vol] 180 mg/dL <200 [facility] Work Phone: Comment on above: <200 mg/dL Desirable 200-240 mg/dL Borderline >240 mg/dL High Risk Glucose [Mass/Vol] 100 mg/dL 74-106 [facility] Work Phone: Comment on above: Fasting Glucose resu lt from 100 to 125 mg/dL suggests IMPAIRED HOMEOSTASIS per A.D.A. criteria. Neutrophils (Bld) [#/Vol] 5.5 10*3/uL 2.0-7.7 [facility] Work Phone: Potassium [Moles/Vol] 3.6 mmol/L 3.5-5.1 [facility] Work Phone: Protein [Mass/Vol] 8.2 g/dL 6.4-8.2 [facility] Work Phone: Sodium [Moles/Vol] 137 mmol/L 136-145 [facility] Work Phone: Triglyceride [Mass/Vol] 418 mg/dL <199 [facility] Work Phone: Comment on above: The drugs N-Acetylcy steine and Metamizole may falsely depress this assay. TRIGLYCERIDE IS GREATER THAN 400 mg/dL. LDL RESULT IS INVALID AND WILL NOT BE REPORTED.Serum Triglycerides Reference Interval Normal <150 mg/dL Borderline high 150 - 199 mg/dL High 200 - 499 mg/dL Very High > or = 500 mg/dL WBC (Bld) [#/Vol] 8.6 10*3/uL 4.4-11.0 [facility] Work Phone: Bilirubin Test strip Ql (U)o n 06-05-2022 Bilirubin Ql (U) Negative Negative [facility] Work Phone: Blood erythrocytes count (nu mber/volume)on 06-05-2022 RBC (Bld) [#/Vol] 4.49 10*6/uL 4.2-5.4 [facility] Work Phone: Blood hemoglobin measurement (mass/volume)on 06-05-2022 Hemoglobin (Bld) [Mass/Vol] 14.0 g/dL 12.0-15.0 [facility] Work Phone: Blood platelet mean volumeon 06-05-2022 Platelet mean volume (Bld) [Entitic vol] 9.2 fL 6.2-12.0 [facility] Work Phone: Determination of erythrocyte mean corpuscular volume (MCV)on 06-05-2022 MCV (RBC) [Entitic vol] 92.7 fL 81-99 [facility] Work Phone: Direct bilirubinon Bilirubin.direct [Mass/Vol] 0.11 mg/dL 0.00-0.30 [facility] Work Phone: Hematocrit Auto (Bld) [Volum e fraction]on 06-05-2022 Hematocrit (Bld) [Volume fraction] 41.6 % 37-47 [facility] Work Phone: Ketones Test strip Ql (U)on 06-05-2022 Ketones Ql (U) Negative Negative [facility] Work Phone: Laboratory - Chemistry and C hemistry - challengeon 06-05-2022 ALP [Catalytic activity/Vol] 73 U/L 45-117 [facility] Work Phone: ALT [Catalytic activity/Vol] 24 U/L 13-56 [facility] Work Phone: Cholesterol.total/Choles terol in HDL [Mass ratio] 5.50 {ratio} [facility] Work Phone: CO2 [Moles/Vol] 25.0 mmol/L 21.0-32.0 [facility] Work Phone: Globulin (S) [Mass/Vol] 4.1 g/dL 2.2-4.2 [facility] Work Phone: Urea nitrogen/Creatinine [Mass ratio] 16.6 mg/mg 10-20 [facility] Work Phone: Laboratory - Hematology and Cell countson 06-05-2022 Erythrocyte distribution width (RBC) [Entitic vol] 44.2 fL 35.1-43.9 [facility] Work Phone: Erythrocyte distribution width (RBC) [Ratio] 13.2 % 11.6-14.6 [facility] Work Phone: MCH (RBC) [Entitic mass] 31.2 pg 27.0-32.0 [facility] Work Phone: Nucleated RBC/100 WBC (Bld) [Ratio] 0 % 0-5 [facility] Work Phone: MCHC Auto (RBC) [Mass/Vol]on 06-05-2022 MCHC (RBC) [Mass/Vol] 33.7 g/dL 32-36 [facility] Work Phone: Nitrite Test strip Ql (U)on 06-05-2022 Nitrite Ql (U) Negative Negative [facility] Work Phone: No Panel Informationon 06-05 Estimated GFR (MDRD) Amer 115 mL/min >60 [facility] Work Phone: Comment on above: GFR Calc Estimated GFR (MDRD) Non-Af Amer 95 mL/min >60 [facility] Work Phone: Comment on above: Non- GFR Calc Platelets bldon 06-05-2022 Platelets (Bld) [#/Vol] 200 10*3/uL 150-450 [facility] Work Phone: Protein Test strip Ql (U)on 06-05-2022 Protein Ql (U) 15 mg/dl Negative [facility] Work Phone: Segmented neutrophils/100 WB C Auto (Bld)on 06-05-2022 Segmented neutrophils/100 WBC (Bld) 64.3 % 47-70 [facility] Work Phone: Serum or plasma albumin sharron urement (mass/volume)on 06-05-2022 Albumin [Mass/Vol] 4.1 g/dL 3.2-5.0 [facility] Work Phone: Serum or plasma albumin/glob ulin mass ratioon 06-05-2022 Albumin/Globulin [Mass ratio] 1.0 {ratio} 0.9-2.4 [facility] Work Phone: Serum or plasma calcium sharron urement (mass/volume)on 06-05-2022 Calcium [Mass/Vol] 8.7 mg/dL 8.5-10.1 [facility] Work Phone: Serum or plasma cholesterol in HDL measurement (mass/volume)on 06-05-2022 Cholesterol in HDL [Mass/Vol] 33 mg/dL >40 [facility] Work Phone: Comment on above: The drugs N-Acetylcy steine and Metamizole may falsely depress this assay. Reference Range HDL <40 mg/dL Low HDL Cholesterol HDL >or= 60 mg/dL High HDL Cholesterol Serum or plasma cholesterol in VLDL measurement (mass/volume)on 06-05-2022 Cholesterol in VLDL [Mass/Vol] TNP [facility] Work Phone: Comment on above: Test not performed Serum or plasma creatinine m easurement (mass/volume)on 06-05-2022 Creatinine [Mass/Vol] 0.72 mg/dL 0.55-1.02 [facility] Work Phone: Comment on above: The validity of the calculated GFR & GFRAA in patients over 70 years has not been determined. Clinical correlation is essential. Serum or plasma low density lipoprotein (LDL) cholesterol measurement (mass/volume)on 06-05-2022 Cholesterol in LDL [Mass/Vol] TNP [facility] Work Phone: Comment on above: Test not performed Serum or plasma urea nitroge n measurement (mass/volume)on 06-05-2022 Urea nitrogen [Mass/Vol] 12 mg/dL 7-18 [facility] Work Phone: Serum or plasma uric acid me asurement (mass/volume)on 06-05-2022 Urate [Mass/Vol] 5.6 mg/dL 2.6-6.0 [facility] Work Phone: Comment on above: The drugs N-Acetylcy steine and Metamizole may falsely depress this assay. Thin prep Papanicolaou smear with manual screeningon 06-05-2022 Thin prep Papanicolaou smear with manual screening 14 U/L 15-37 [facility] Work Phone: Thin prep Papanicolaou smear with manual screening 4 5-15 [facility] Work Phone: Thin prep Papanicolaou smear with manual screening 152 U/L 84-246 [facility] Work Phone: Urine blood detectionon 08-0 RBC Ql (U) Negative Negative [facility] Work Phone: Urine clarityon 06-05-2022 Clarity (U) Sl. Cloudy Clear [facility] Work Phone: Urine color determinationon 06-05-2022 Color (U) Yellow Yellow [facility] Work Phone: Urine glucose detectionon Glucose Ql (U) Normal mg/dl Normal [facility] Work Phone: Urine leukocyte esterase det ection by dipstickon 06-05-2022 Leukocyte esterase Test strip Ql (U) 500 /ul Negative [facility] Work Phone: Urine pHon 06-05-2022 pH (U) 5.0 [pH] 5.0 - 8.0 [facility] Work Phone: Urine specific gravity measu rementon 06-05-2022 Specific gravity (U) [Rel density] 1.020 1.002-1.030 [facility] Work Phone: Urobilinogen Auto test strip Ql (U)on 06-05-2022 Urobilinogen Ql (U) Normal mg/dl Normal [facility] Work Phone: CNOVon 05-24-2022 CNOV Office Visit (SPAGWO) ---- TORI GRAY ([id number]) 1980 F Date Time Provider Department 05/24/22 11:00 AM ADELINA MARINELLI During your visit today, [...] The patient is not nervous/anxious. 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 Normal [facility] TORI GRAY ([id number]) 1980 F Date Time Provider Department 05/11/22 ELLE RASHEED AGSPHWG During your visit today, we recorded the following information about you: Livia Luna 05/11/2022 3:18 PM Signed Left brief message asking patient to call back with any questions or concerns about a recent appointment. Livia Lnua LPN May 11, 2022 3:18 PM Allergies [...] bed with current PAP mask. - Ipratropium Hadley (ATROVENT) 0.03 % nasal spray Use 2 Sprays in the nose every 12 hours. - metroNIDAZOLE (METROGEL) 0.75 % Topical Gel Apply to affected area twice daily. - [place]-3 Fatty Acids (FISH OIL) 500 mg cap Take 1 capsule by mouth once daily. - blood sugar diagnostic (BLOOD GLUCOSE TEST) test strip Test blood sugar(s) 1 times daily. Dx: Type 2 DM - Controlled E11.9 Insulin: Yes - Lancets lancets Test blood sugar(s) 1 times daily. Dx: Type 2 DM - Controlled E11.9 Insulin: No - Yhzjixey-Je-Dim-Fe- FA ( FORMULA) ORAL Tab Take 1 [...] 05/06/2009 01/23/2010 Routine general medical examination at [facility]*01/23/2010 12/06/2012 Class: Chronic Routine gynecological examination [Z01.419] 01/23/2010 02/22/2014 Class: Chronic Morbid Obesity [E66.01] 01/23/2010 Lumbar Disc Disorder [M51.9] 02/16/2010 Routine general medical examination at [facility]*12/06/2012 02/22/2014 Anxiety [F41.9] 06/07/2014 Type 2 [...] 104 mg/dL Abnormal 74 - 99 mg/dL [facility] CNCOon 03-29-2022 CNCO Letter Text Normal [facility] CNOVon 03-29-2022 CNOV Office Visit (SPAGWO) ---- TORI GRAY ([id number]) 1980 F Date Time Provider Department 03/29/22 11:00 AM ELLE RASHEED During your visit today, we recorded the following information about you: Pulse Respiration Normal [facility] CNPNon 03-29-2022 CNPN Telephone (SPAGWO) ---- TORI GRAY ([id number]) 1980 F Date Time Provider Department 03/29/22 ELLE RASHEEDGNATALIE During your visit today, we recorded the [...] bed with current PAP mask. - Ipratropium [place]ley (ATROVENT) 0.03 % nasal spray Use 2 Sprays in the nose every 12 hours. - metroNIDAZOLE (METROGEL) 0.75 % Topical Gel Apply to affected area twice daily. - [place]-3 Fatty Acids (FISH OIL) 500 mg cap Take 1 capsule by mouth once daily. - blood sugar diagnostic (BLOOD GLUCOSE TEST) test strip Test blood sugar(s) 1 times daily. Dx: Type 2 DM - Controlled E11.9 Insulin: Yes - Lancets lancets Test blood sugar(s) 1 times daily. Dx: Type 2 DM - Controlled E11.9 Insulin: No - Unnxgutu-Xb-Qpy-Fe- FA ( FORMULA) ORAL Tab Take 1 [...] 05/06/2009 01/23/2010 Routine general medical examination at [facility]*01/23/2010 12/06/2012 Class: Chronic Routine gynecological examination [Z01.419] 01/23/2010 02/22/2014 Class: Chronic Morbid Obesity [E66.01] 01/23/2010 Lumbar Disc Disorder [M51.9] 02/16/2010 Routine general medical examination at [facility]*12/06/2012 02/22/2014 Anxiety [F41.9] 06/07/2014 Type 2 diabetes mellitus with microalbuminuria,*0 07/04/2018 Fatty liver [K76.0] 07/21/2018 LETITIA (obstructive sleep apnea) [G47.33] 07/21/2018 Microalbuminuria [R80.9] 09/30/2018 Obesity, Class III, BMI >= 40 [E66.01] 11/26/2019 Prolo (more content not included)... Normal [facility] Basophil percentageon 2021 Cholesterol [Mass/Vol] 178 mg/dL <200 [facility] Comment on above: <200 mg/dL Desirable 200-240 mg/dL Borderline >240 mg/dL High Risk Triglyceride [Mass/Vol] 183 mg/dL [facility] Comment on above: The drugs N-Acetylcy steine and Metamizole may falsely depress this assay.Serum Triglycerides Reference Interval Normal <150 mg/dL Borderline high 150 - 199 mg/dL High 200 - 499 mg/dL Very High > or = 500 mg/dL Bilirubin [Mass/Vol] 0.30 mg/dL 0.20-1.00 [facility] Work Phone: Comment on above: For patients on eltr ombopag therapy, use of Dimension [place] TBIL is not recommended. Chloride [Moles/Vol] 109 mmol/L 98-107 [facility] Work Phone: Glucose [Mass/Vol] 126 mg/dL 74-106 [facility] Work Phone: Comment on above: Fasting Glucose resu lt greater than or equal to 126 mg/dL suggests DIABETES MELLITUS per A.D.A. criteria. Potassium [Moles/Vol] 4.1 mmol/L 3.5-5.1 [facility] Work Phone: Protein [Mass/Vol] 8.4 g/dL 6.4-8.2 [facility] Work Phone: Sodium [Moles/Vol] 136 mmol/L 136-145 [facility] Work Phone: WBC (Bld) [#/Vol] 9.6 10*3/uL 4.4-11.0 [facility] Work Phone: Blood erythrocytes count (nu mber/volume)on 02-07-2022 RBC (Bld) [#/Vol] 4.63 10*6/uL 4.2-5.4 [facility] Work Phone: Blood hemoglobin measurement (mass/volume)on 02-07-2022 Hemoglobin (Bld) [Mass/Vol] 14.2 g/dL 12.0-15.0 [facility] Work Phone: Blood platelet mean volumeon 02-07-2022 Platelet mean volume (Bld) [Entitic vol] 9.5 fL 6.2-12.0 [facility] Work Phone: Determination of erythrocyte mean corpuscular volume (MCV)on 02-07-2022 MCV (RBC) [Entitic vol] 91.6 fL 81-99 [facility] Work Phone: Hematocrit Auto (Bld) [Volum e fraction]on 02-07-2022 Hematocrit (Bld) [Volume fraction] 42.4 % 37-47 [facility] Work Phone: LIPID PANEL (OUTSIDE)on VLDL Cholesterol 37 [facility] - Chemistry and C hemistry - challengeon 02-07-2022 ALP [Catalytic activity/Vol] 87 U/L 45-117 [facility] Work Phone: ALT [Catalytic activity/Vol] 29 U/L 13-56 [facility] Work Phone: CO2 [Moles/Vol] 23.0 mmol/L 21.0-32.0 [facility] Work Phone: Globulin (S) [Mass/Vol] 4.3 g/dL 2.2-4.2 [facility] Work Phone: Magnesium [Mass/Vol] 1.7 mg/dL 1.6-2.6 [facility] Work Phone: Urea nitrogen/Creatinine [Mass ratio] 15.1 mg/mg 10-20 [facility] Work Phone: Laboratory - Hematology and Cell countson 02-07-2022 Erythrocyte distribution width (RBC) [Entitic vol] 43.8 fL 35.1-43.9 [facility] Work Phone: Erythrocyte distribution width (RBC) [Ratio] 13.2 % 11.6-14.6 [facility] Work Phone: MCH (RBC) [Entitic mass] 30.7 pg 27.0-32.0 [facility] Work Phone: MCHC Auto (RBC) [Mass/Vol]on 02-07-2022 MCHC (RBC) [Mass/Vol] 33.5 g/dL 32-36 [facility] Work Phone: MICROALBUMIN/CREATININE UR W RATIO (EXTERNAL)on 02-07-2022 Albumin/Creat Ratio 153.4 [facility] Creatinine Urine [address] [facility] Microalbumin, Random urine 290 [facility] No Panel Informationon 02-07 Urine Microalbumin/Creatinine Ratio 153.4 mg/g CRE <30 [facility] Work Phone: Estimated GFR (MDRD) Amer 114 mL/min >60 [facility] Work Phone: Comment on above: GFR Calc Estimated GFR (MDRD) Non-Af Amer 94 mL/min >60 [facility] Work Phone: Comment on above: Non- GFR Calc Thyroid Stimulating Hormone (TSH) 2.76 uIU/mL 0.358-3.74 [facility] Work Phone: Platelets bldon 02-07-2022 Platelets (Bld) [#/Vol] 223 10*3/uL 150-450 [facility] Work Phone: Serum or plasma albumin sharron urement (mass/volume)on 02-07-2022 Albumin [Mass/Vol] 4.1 g/dL 3.2-5.0 [facility] Work Phone: Serum or plasma albumin/glob ulin mass ratioon 02-07-2022 Albumin/Globulin [Mass ratio] 1.0 {ratio} 0.9-2.4 [facility] Work Phone: Serum or plasma calcium sharron urement (mass/volume)on 02-07-2022 Calcium [Mass/Vol] 8.8 mg/dL 8.5-10.1 [facility] Work Phone: Serum or plasma cholesterol in HDL measurement (mass/volume)on 02-07-2022 Cholesterol in HDL [Mass/Vol] 37 mg/dL [facility] Comment on above: The drugs N-Acetylcy steine and Metamizole may falsely depress this assay. Reference Range HDL <40 mg/dL Low HDL Cholesterol HDL >or= 60 mg/dL High HDL Cholesterol Serum or plasma cholesterol in VLDL measurement (mass/volume)on 02-07-2022 Cholesterol in VLDL [Mass/Vol] 37 mg/dL 5-40 [facility] Work Phone: Serum or plasma creatinine m easurement (mass/volume)on 02-07-2022 Creatinine [Mass/Vol] 0.73 mg/dL 0.55-1.02 [facility] Work Phone: Comment on above: The validity of the calculated GFR & GFRAA in patients over 70 years has not been determined. Clinical correlation is essential. Serum or plasma low density lipoprotein (LDL) cholesterol measurement (mass/volume)on 02-07-2022 Cholesterol in LDL [Mass/Vol] 104 mg/dL 0-130 [facility] Serum or plasma urea nitroge n measurement (mass/volume)on 02-07-2022 Urea nitrogen [Mass/Vol] 11 mg/dL 7-18 [facility] Work Phone: TSH (EXTERNAL)on 02-07-2022 TSH 2.76 IU/ml 0.2 - 5.6 IU/ml [facility] Thin prep Papanicolaou smear with manual screeningon 02-07-2022 Thin prep Papanicolaou smear with manual screening 290.0 mg/L NO RANGE EST. [facility] Work Phone: Thin prep Papanicolaou smear with manual screening 13 U/L 15-37 [facility] Work Phone: Thin prep Papanicolaou smear with manual screening 4 5-15 [facility] Work Phone: Urine creatinine measurement (mass/volume)on 02-07-2022 Creatinine (U) [Mass/Vol] 189.00 mg/dL NO RANGE EST. [facility] Work Phone: Whole blood hemoglobin A1c/t otal hemoglobin ratio (mass fraction)on 02-07-2022 HbA1c (Bld) [Mass fraction] 5.1 % 3.8-5.6 [facility] Comment on above: Normal < 5.7 % Predi abetic 5.7 - 6.4 % Diabetic >or= 6.5 % Please note range changes. Hany 01-29-2022 CNPN Telephone (AGSPINE3) ---- TORI GRAY ([id number]) 1980 F Date Time Provider Department 01/29/22 [...] Sent: 01/26/2022 9:15 AM EDT To: [facility] Subject: New Referral Dr Grimes and Dr [...] bed with current PAP mask. - Ipratropium [place] (ATROVENT) 0.03 % nasal spray Use 2 Sprays in the nose every 12 hours. - metroNIDAZOLE (METROGEL) 0.75 % Topical Gel Apply to affected area twice daily. - [place]-3 Fatty Acids (FISH OIL) 500 mg cap Take 1 capsule by mouth once daily. - blood sugar diagnostic (BLOOD GLUCOSE TEST) test strip Test blood sugar(s) 1 times daily. Dx: Type 2 DM - Controlled E11.9 Insulin: Yes - Lancets lancets Test blood sugar(s) 1 times daily. Dx: Type 2 DM - Controlled E11.9 Insulin: No - Bagvrjzo-Zf-Yyx-Fe- FA ( FORMULA) ORAL Tab Take 1 [...] 05/06/2009 01/23/2010 Routine general medical examination at [facility]*01/23/2010 12/06/2012 Class: Chronic Routine gynecological examination [Z01.419] 01/23/2010 02/22/2014 Class: Chronic Morbid Obesity [E66.01] 01/23/2010 Lumbar Disc Disorder [M51.9] 02/16/2010 Routine general medical examination at [facility]*12/06/2012 02/22/2014 Anxiety [F41.9] 06/07/2014 Type 2 diabetes mellitus with microalbuminuria,*0 07/04/2018 Fatty liver [K76.0] 07/21/2018 LETITIA (obstructive sleep apnea) [G47.33] 07/21/2018 Microalbuminuria [R80.9] 09/30/2018 Obesity, Class III, BMI >= 40 [E66.01] 11/26/2019 Prolonged Q-T interval on ECG [R94.31] 03/31/2020 Encounter Status:Closed by DARRION BARAHONA on 01/30/22 [facility] - Microbiology an d Antimicrobial susceptibilityon 11-21-2021 SARS-CoV-2 (COVID-19) RNA ALLYSON+probe Ql (Unsp spec) Not detected [facility] Work Phone: Office Visit: Jojo Removal, possible other optionson 09-09-2017 Documentation of current medications (procedure) Done Invalid Interpretation Code [facility] Fall risk assessment No Invalid Interpretation Code [facility] Tobacco smoking status NHIS Never Invalid Interpretation Code [facility] Tobacco use CPHS Never smoker Invalid Interpretation Code [facility] Office Visit: Spine Visit- L ow back pain BWCon 09-05-2017 Documentation of current medications (procedure) Done Invalid Interpretation Code [email or web address] Work Phone: Office Visit: Spine Visit- L ow back painon 09-03-2017 Documentation of current medications (procedure) Done Invalid Interpretation Code [facility] Work Phone: Office Visit: Spine Visit- L ow back [facility] 08-22-2017 Documentation of current medications (procedure) Done Invalid Interpretation Code [facility] Work Phone: Office Visiton 08-09-2017 Dietary management education, guidance, and counseling (procedure) yes Invalid Interpretation Code [facility] Work Phone: Tobacco smoking status NHIS Never Invalid Interpretation Code [facility] Work Phone: Tobacco use CPHS Never smoker Invalid Interpretation Code [facility] Work Phone: Office Visit: BWC: low back painon 05-02-2017 Fall risk assessment No Invalid Interpretation Code [facility] Work Phone: Office Visit: Jojo Robles, possible other optionson 06-04-2014 General categories [Interpretation] of Cervical or vaginal smear or scraping by Cyto stain Normal Invalid Interpretation Code [facility] Vital Signs Date Time Vital Sign Value Performing Clinician Facility 07-15-2025 09:26-0400 Body mass index (BMI) [Ratio] 42.13 kg/m2 Lubna Suppan LIBRARY CLERK [employer].CHEMISTRY LECTURER Work Phone: [facility] 07-15-2025 09:26-0400 Body temperature 97.59 [degF] Lubna Suppan [employer]RARY [employer].CHEMISTRY LECTURER Work Phone: [facility] 07-15-2025 09:26-0400 Body weight 122.02 kg Lubna Suppan LIBRARY CLERK [employer].CHEMISTRY LECTURER Work Phone: [facility] 07-15-2025 09:26-0400 Diastolic blood pressure 76 mm[Hg] Lubna Suppan LIBRARY CLERK [employer].CHEMISTRY LECTURER Work Phone: [facility] 07-15-2025 09:26-0400 Heart rate 73 /min Lubna Suppan [employer]RARY [employer].CHEMISTRY LECTURER Work Phone: [facility] 07-15-2025 09:26-0400 SaO2% (BldA) [Mass fraction] 98 % Lubna Suppan [employer]RARY [employer].CHEMISTRY LECTURER Work Phone: [facility] 07-15-2025 09:26-0400 Systolic blood pressure 128 mm[Hg] Lubna Suppan [employer].CHEMISTRY LECTURER Work Phone: [facility] 07-07-2025 07:15-0400 SaO2% (BldA) [Mass fraction] 96 % Dr. Ivette Grimes MD Work Phone: [facility] 07-07-2025 06:00-0400 Diastolic blood pressure 74 mm[Hg] Dr. Ivette Grimes MD Work Phone: [facility] 07-07-2025 06:00-0400 Heart rate 61 /min Dr. Ivette Grimes MD Work Phone: [facility] 07-07-2025 06:00-0400 Respiratory rate 18 /min Dr. Ivette Grimes MD Work Phone: 6(720)125-966668 [place] [address] 07-07-2025 06:00-0400 Systolic blood pressure 117 mm[Hg] Dr. Ivette Grimes MD Work Phone: 8(870)839-157868 [place] [address] 07-07-2025 05:33-0400 Body mass index (BMI) [Ratio] 44.1 kg/m2 Dr. Ivette Grimes MD Work Phone: 0(290)488-310368 [place] [address] 07-07-2025 05:33-0400 Body weight 127.[address] Ivette Grimes MD Work Phone: 3(392)539-668468 [place] [address] 07-07-2025 04:00-0400 Body temperature 98.1 [degF] Dr. Ivette Grimes MD Work Phone: 6(167)077-142468 [place] [address] 07-06-2025 10:30-0400 Body height 170.[address] Ivette Grimes MD Work Phone: 5(391)004-411368 [place] [address] 07-05-2025 23:35-0400 Body height 170.[address] Ivette Grimes MD Work Phone: 8(264)674-774768 [place] [address] 07-05-2025 23:35-0400 Body mass index (BMI) [Ratio] 44.7 kg/m2 Dr. Ivette Grimes MD Work Phone: 1(147)202-377168 [place] [address] 07-05-2025 23:35-0400 Body weight 129.[address] Ivette Grimes MD Work Phone: 1(208)738-820668 [place] [address] 07-05-2025 23:00-0400 Diastolic blood pressure 50 mm[Hg] Dr. Ivette Grimes MD Work Phone: 1(353)411-725768 [place] [address] 07-05-2025 23:00-0400 Heart rate 75 /min Dr. Ivette Grimes MD Work Phone: 7(898)803-159968 [place] [address] 07-05-2025 23:00-0400 Respiratory rate 27 /min Dr. Ivette Grimes MD Work Phone: 7(104)827-930368 [place] [address] 07-05-2025 23:00-0400 SaO2% (BldA) [Mass fraction] 94 % Dr. Ivette Grimes MD Work Phone: 9(914)268-789468 [place] [address] 07-05-2025 23:00-0400 Systolic blood pressure 102 mm[Hg] Dr. Ivette Grimes MD Work Phone: 5(207)445-569368 [place] [address] 07-05-2025 22:00-0400 Body temperature 100.3 [degF] Dr. Ivette Grimes MD Work Phone: 4(025)755-917168 [place] [address] 06-23-2025 09:45-0400 Body temperature 96.6 [degF] Dr. Ivette Grimes MD Work Phone: 9(551)478-799668 [place] [address] 06-23-2025 09:45-0400 Diastolic blood pressure 60 mm[Hg] Dr. Ivette Grimes MD Work Phone: 7(756)803-374068 [place] [address] 06-23-2025 09:45-0400 Heart rate 65 /min Dr. Ivette Grimes MD Work Phone: 3(753)272-008368 [place] [address] 06-23-2025 09:45-0400 Respiratory rate 16 /min Dr. Ivette Grimes MD Work Phone: 9(143)782-767668 [place] [address] 06-23-2025 09:45-0400 SaO2% (BldA) [Mass fraction] 95 % Dr. Ivtete Grimes MD Work Phone: 2(040)845-359768 [place] [address] 06-23-2025 09:45-0400 Systolic blood pressure 112 mm[Hg] Dr. Ivette Grimes MD Work Phone: 4(003)647-460868 [place] [address] 06-23-2025 09:15-0400 Inhaled oxygen flow rate 2 L/min Dr. Ivette Grimes MD Work Phone: 3(102)883-785368 [place] [address] 06-23-2025 06:40-0400 Body height 170.[address] Ivette Grimes MD Work Phone: 2(506)645-770768 [place] [address] 06-23-2025 06:40-0400 Body mass index (BMI) [Ratio] 43.4 kg/m2 Dr. Ivette Grimes MD Work Phone: 4(376)747-858168 [place] [address] 06-23-2025 06:40-0400 Body weight [address] Ivette Grimes MD Work Phone: [facility] 06-07-2025 18:27-0400 Body mass index (BMI) [Ratio] 44.26 kg/m2 Ivette Grimes MD Work Phone: [facility] 06-07-2025 18:27-0400 Body weight 128.19 kg Ivette Grimes MD Work Phone: [facility] 06-07-2025 18:27-0400 Diastolic blood pressure 80 mm[Hg] Ivette Grimes MD Work Phone: [facility] 06-07-2025 18:27-0400 Heart rate 78 /min Ivette Grimes MD Work Phone: [facility] 06-07-2025 18:27-0400 SaO2% (BldA) [Mass fraction] 98 % Ivette Grimes MD Work Phone: [facility] 06-07-2025 18:27-0400 Systolic blood pressure 132 mm[Hg] Ivette Grimes MD Work Phone: [facility] 05-06-2025 10:04-0400 Body height 170.[address] Ivette Grimes MD Work Phone: [facility] 05-06-2025 10:04-0400 Body mass index (BMI) [Ratio] 43 kg/m2 Dr. Ivette Grimes MD Work Phone: [facility] 05-06-2025 10:04-0400 Body weight 124.[address] Ivette Grimes MD Work Phone: [facility] 03-22-2025 09:08-0400 Body height 170.[address] Ivette Grimes MD Work Phone: [facility] 01-22-2025 15:43-0400 Body mass index (BMI) [Ratio] 44.17 kg/m2 Ivette Grimes MD Work Phone: [facility] 01-22-2025 15:43-0400 Body weight 127.91 kg Ivette Grimes MD Work Phone: [facility] 01-22-2025 15:43-0400 Diastolic blood pressure 72 mm[Hg] Ivette Grimes MD Work Phone: [facility] 01-22-2025 15:43-0400 Heart rate 77 /min Ivette Grimes MD Work Phone: [facility] 01-22-2025 15:43-0400 SaO2% (BldA) [Mass fraction] 97 % Ivette Grimes MD Work Phone: [facility] 01-22-2025 15:43-0400 Systolic blood pressure 122 mm[Hg] Ivette Grimes MD Work Phone: [facility] 12-11-2024 11:08-0500 Body mass index (BMI) [Ratio] 43.4 kg/m2 Jenni Albaradohof [employer].CHEMISTRY LECTURER Work Phone: [facility] 12-11-2024 11:08-0500 Body temperature 97.81 [degF] Jenni Albaradohof [employer].CHEMISTRY LECTURER Work Phone: [facility] 12-11-2024 11:08-0500 Body weight 125.7 kg Jennifrank Albaradohof [employer].CHEMISTRY LECTURER Work Phone: [facility] 12-11-2024 11:08-0500 Diastolic blood pressure 74 mm[Hg] Jenni Albaradohof [employer]ERK [employer].CHEMISTRY LECTURER Work Phone: [facility] 12-11-2024 11:08-0500 Heart rate 72 /min Jenni Albaradohof [employer].CHEMISTRY LECTURER Work Phone: [facility] 12-11-2024 11:08-0500 Respiratory rate 16 /min Ejnni Verenahof [employer].CHEMISTRY LECTURER Work Phone: [facility] 12-11-2024 11:08-0500 SaO2% (BldA) [Mass fraction] 99 % Jenni Albaradohof LIBRARY [employer]ERK [employer].CHEMISTRY LECTURER Work Phone: [facility] 12-11-2024 11:08-0500 Systolic blood pressure 138 mm[Hg] Jenni Tannhof [employer]RARY CLERK [employer].CHEMISTRY LECTURER Work Phone: [facility] 11-11-2024 12:34-0500 Heart rate 74 /min Dr. Ivette Grimes MD Work Phone: 6(161)148-749068 [place] [address] 11-11-2024 12:34-0500 Respiratory rate 20 /min Dr. Ivette Grimes MD Work Phone: 2(184)384-583268 [place] [address] 11-11-2024 12:34-0500 SaO2% (BldA) [Mass fraction] 100 % Dr. Ivette Grimes MD Work Phone: 1(377)895-862768 [place] [address] 11-11-2024 11:00-0500 Diastolic blood pressure 60 mm[Hg] Dr. Ivette Grimes MD Work Phone: 8(981)439-463568 [place] [address] 11-11-2024 11:00-0500 Systolic blood pressure 108 mm[Hg] Dr. Ivette Grimes MD Work Phone: 6(469)924-784768 [place] [address] 11-11-2024 05:55-0500 Body height 170.[address] Ivette Grimes MD Work Phone: 4(262)921-043268 [place] [address] 11-11-2024 05:55-0500 Body mass index (BMI) [Ratio] 45.2 kg/m2 Dr. Ivette Grimes MD Work Phone: 2(138)905-421368 [place] [address] 11-11-2024 05:55-0500 Body temperature 97.5 [degF] Dr. Ivette Grimes MD Work Phone: 3(133)733-129268 [place] [address] 11-11-2024 05:55-0500 Body weight [address] Ivette Grimes MD Work Phone: 9(082)095-994468 [place] [address] 10-16-2024 21:50-0500 Body temperature 98 [degF] Dr. Ivette Grimes MD Work Phone: 8(227)157-365368 [place] [address] 10-16-2024 21:50-0500 Diastolic blood pressure 72 mm[Hg] Dr. Ivette Grimes MD Work Phone: 0(815)353-522368 [place] [address] 10-16-2024 21:50-0500 Heart rate 60 /min Dr. Ivette Grimes MD Work Phone: 9(485)061-078968 [place] [address] 10-16-2024 21:50-0500 Respiratory rate 16 /min Dr. Ivette Grimes MD Work Phone: [facility] 10-16-2024 21:50-0500 SaO2% (BldA) [Mass fraction] 95 % Dr. Ivette Grimes MD Work Phone: [facility] 10-16-2024 21:50-0500 Systolic blood pressure 137 mm[Hg] Dr. Ivette Grimes MD Work Phone: [facility] 10-16-2024 20:23-0500 Body mass index (BMI) [Ratio] 43 kg/m2 Dr. Ivette Grimes MD Work Phone: [facility] 10-16-2024 20:23-0500 Body weight 124.[address] Ivette Grimes MD Work Phone: [facility] 09-03-2024 12:51-0400 Body height 170.2 cm Fatuma Robertser PA-C Work Phone: [facility] 09-03-2024 12:51-0400 Body mass index (BMI) [Ratio] 43.8 kg/m2 Fatuma Queener PA-C Work Phone: [facility] 09-03-2024 12:51-0400 Body weight 126.85 kg Fatuma Queener PA-C Work Phone: [facility] 09-03-2024 12:51-0400 Diastolic blood pressure 71 mm[Hg] Fatuma Robertser PA-C Work Phone: [facility] 09-03-2024 12:51-0400 Heart rate 67 /min Fatuma Queener PA-C Work Phone: [facility] 09-03-2024 12:51-0400 SaO2% (BldA) [Mass fraction] 97 % Fatuma Robertser PA-C Work Phone: [facility] 09-03-2024 12:51-0400 Systolic blood pressure 153 mm[Hg] Fatuma Robertser PA-C Work Phone: [facility] 08-05-2024 08:04-0400 Body mass index (BMI) [Ratio] 42.81 kg/m2 Ivette Grimes MD Work Phone: [facility] 08-05-2024 08:04-0400 Body weight 131.5 kg Ivette Grimes MD Work Phone: [facility] 08-05-2024 08:04-0400 Diastolic blood pressure 62 mm[Hg] Ivette Grimes MD Work Phone: [facility] 08-05-2024 08:04-0400 Heart rate 56 /min Ivette Grimes MD Work Phone: [facility] 08-05-2024 08:04-0400 SaO2% (BldA) [Mass fraction] 96 % Ivette Grimes MD Work Phone: [facility] 08-05-2024 08:04-0400 Systolic blood pressure 114 mm[Hg] Ivette Grimes MD Work Phone: [facility] 07-03-2024 15:29-0400 Body mass index (BMI) [Ratio] 41.94 kg/m2 Ivette Grimes MD Work Phone: [facility] 07-03-2024 15:29-0400 Body weight 128.82 kg Ivette Grimes MD Work Phone: [facility] 07-03-2024 15:29-0400 Diastolic blood pressure 82 mm[Hg] Ivette Grimes MD Work Phone: [facility] 07-03-2024 15:29-0400 Heart rate 78 /min Ivette Grimes MD Work Phone: [facility] 07-03-2024 15:29-0400 SaO2% (BldA) [Mass fraction] 98 % Ivette Grimes MD Work Phone: [facility] 07-03-2024 15:29-0400 Systolic blood pressure 152 mm[Hg] Ivette Grimes MD Work Phone: [facility] 04-02-2024 12:46-0400 Body height 175.3 cm Fatuma Beckford PA-C Work Phone: [facility] 04-02-2024 12:46-0400 Body mass index (BMI) [Ratio] 41.02 kg/m2 Fatuma Beckford PA-C Work Phone: [facility] 04-02-2024 12:46-0400 Body weight 126 kg Fatuma Beckford PA-C Work Phone: [facility] 04-02-2024 12:46-0400 Diastolic blood pressure 77 mm[Hg] Fatuma Beckford PA-C Work Phone: [facility] 04-02-2024 12:46-0400 Heart rate 59 /min Fatuma Beckford PA-C Work Phone: [facility] 04-02-2024 12:46-0400 SaO2% (BldA) [Mass fraction] 99 % Fatuma Beckford PA-C Work Phone: [facility] 04-02-2024 12:46-0400 Systolic blood pressure 135 mm[Hg] Fatuma IRENE-C Work Phone: [facility] 02-04-2024 04:03-0400 Body temperature 98 [degF] Dr. Ivette Grimes Work Phone: [facility] 02-04-2024 04:03-0400 Diastolic blood pressure 56 mm[Hg] Dr. Ivette Grimes Work Phone: [facility] 02-04-2024 04:03-0400 Heart rate 59 /min Dr. Ivette Grimes Work Phone: [facility] 02-04-2024 04:03-0400 Respiratory rate 16 /min Dr. Ivette Grimes Work Phone: [facility] 02-04-2024 04:03-0400 SaO2% (BldA) [Mass fraction] 100 % Dr. Ivette Grimes Work Phone: [facility] 02-04-2024 04:03-0400 Systolic blood pressure 107 mm[Hg] Dr. Ivette Grimes Work Phone: [facility] 02-04-2024 01:12-0400 Body height 170.[address] Ivette Grimes Work Phone: [facility] 02-04-2024 01:12-0400 Body mass index (BMI) [Ratio] 43 kg/m2 Dr. Ivette Grimes Work Phone: [facility] 02-04-2024 01:12-0400 Body weight 124.[address] Ivette Grimes Work Phone: [facility] 12-26-2023 10:10-0500 Body height 170.2 cm Fatuma Robertser PA-C Work Phone: [facility] 12-26-2023 10:10-0500 Body weight 123.35 kg Fatuma Robertser PA-C Work Phone: [facility] 12-26-2023 10:10-0500 Diastolic blood pressure 62 mm[Hg] Fatuma Robertser PA-C Work Phone: [facility] 12-26-2023 10:10-0500 Heart rate 68 /min Fatuma Robertser PA-C Work Phone: [facility] 12-26-2023 10:10-0500 Systolic blood pressure 118 mm[Hg] Fatuma Robertser PA-C Work Phone: [facility] 12-10-2023 05:52-0500 Body height 170.[address] Ivette Grimes Work Phone: [facility] 12-10-2023 05:52-0500 Body mass index (BMI) [Ratio] 42.3 kg/m2 Dr. Ivette Grimes Work Phone: [facility] 12-10-2023 05:52-0500 Body temperature 98 [degF] Dr. Ivette Grimes Work Phone: [facility] 12-10-2023 05:52-0500 Body weight 122.[address] Ivette Grimes Work Phone: [facility] 12-10-2023 05:52-0500 Diastolic blood pressure 61 mm[Hg] Dr. Ivette Grimes Work Phone: [facility] 12-10-2023 05:52-0500 Heart rate 68 /min Dr. Ivette Grimes Work Phone: [facility] 12-10-2023 05:52-0500 Respiratory rate 16 /min Dr. Ivette Grimes Work Phone: [facility] 12-10-2023 05:52-0500 SaO2% (BldA) [Mass fraction] 98 % Dr. Ivette Grimes Work Phone: [facility] 12-10-2023 05:52-0500 Systolic blood pressure 108 mm[Hg] Dr. Ivette Grimes Work Phone: [facility] 12-09-2023 17:15-0500 Body weight 122.92 kg Ivette Grimes MD Work Phone: [facility] 12-09-2023 17:15-0500 Diastolic blood pressure 62 mm[Hg] Ivette Grimes MD Work Phone: [facility] 12-09-2023 17:15-0500 Heart rate 60 /min Ivette Grimes MD Work Phone: [facility] 12-09-2023 17:15-0500 SaO2% (BldA) [Mass fraction] 97 % Ivette Grimes MD Work Phone: [facility] 12-09-2023 17:15-0500 Systolic blood pressure 124 mm[Hg] Ivette Grimes MD Work Phone: [facility] 10-27-2023 15:06-0500 Body height 170.18 cm Self Referred [facility] 10-27-2023 15:06-0500 Body mass index (BMI) [Ratio] 43.9 kg/m2 Self Referred [facility] 10-27-2023 15:06-0500 Body temperature 97 [degF] Self Referred [facility] 10-27-2023 15:06-0500 Body weight 127.45 kg Self Referred [facility] 10-27-2023 15:06-0500 Diastolic blood pressure 90 mm[Hg] Self Referred [facility] 10-27-2023 15:06-0500 Heart rate 80 /min Self Referred [facility] 10-27-2023 15:06-0500 Respiratory rate 16 /min Self Referred [facility] 10-27-2023 15:06-0500 SaO2% (BldA) [Mass fraction] 98 % Self Referred [facility] 10-27-2023 15:06-0500 Systolic blood pressure 173 mm[Hg] Self Referred [facility] 08-07-2023 12:17-0400 Body temperature 97.5 [degF] Self Referred [facility] 08-07-2023 12:17-0400 Diastolic blood pressure 75 mm[Hg] Self Referred [facility] 08-07-2023 12:17-0400 Heart rate 53 /min Self Referred [facility] 08-07-2023 12:17-0400 Respiratory rate 14 /min Self Referred [facility] 08-07-2023 12:17-0400 SaO2% (BldA) [Mass fraction] 99 % Self Referred [facility] 08-07-2023 12:17-0400 Systolic blood pressure 119 mm[Hg] Self Referred [facility] 08-07-2023 11:00-0400 Body mass index (BMI) [Ratio] 47.2 kg/m2 Self Referred [facility] 08-05-2023 17:16-0400 Body height 170.18 cm Self Referred [facility] 08-05-2023 17:16-0400 Body weight 136.8 kg Self Referred [facility] 08-05-2023 13:00-0400 Body temperature 97.4 [degF] Dr. Ivette Grimes Work Phone: [facility] 08-05-2023 13:00-0400 Diastolic blood pressure 76 mm[Hg] Dr. Ivette Grimes Work Phone: [facility] 08-05-2023 13:00-0400 Heart rate 58 /min Dr. Ivette Grimes Work Phone: [facility] 08-05-2023 13:00-0400 Respiratory rate 14 /min Dr. Ivette Grimes Work Phone: [facility] 08-05-2023 13:00-0400 SaO2% (BldA) [Mass fraction] 96 % Dr. Ivette Grimes Work Phone: [facility] 08-05-2023 13:00-0400 Systolic blood pressure 156 mm[Hg] Dr. Ivette Grimes Work Phone: [facility] 08-05-2023 11:33-0400 Body mass index (BMI) [Ratio] 47.2 kg/m2 Dr. Ivette Grimes Work Phone: [facility] 08-05-2023 09:51-0400 Body weight 136.[address] Ivette Grimes Work Phone: [facility] 08-05-2023 09:40-0400 Body height 170.[address] Ivette Grimes Work Phone: [facility] 06-07-2023 15:01-0400 Diastolic blood pressure 76 mm[Hg] Ivette Price Jr., MD Work Phone: [facility] 06-07-2023 15:01-0400 Heart rate 75 /min Ivette Price Jr., MD Work Phone: [facility] 06-07-2023 15:01-0400 Respiratory rate 16 /min Ivette Price Jr., MD Work Phone: [facility] 06-07-2023 15:01-0400 SaO2% (BldA) [Mass fraction] 97 % Ivette Price Jr., MD Work Phone: [facility] 06-07-2023 15:01-0400 Systolic blood pressure 138 mm[Hg] Ivette Price Jr., MD Work Phone: [facility] 06-06-2023 09:39-0400 Body weight 132 kg Ivette Grimes MD Work Phone: [facility] 06-06-2023 09:39-0400 Diastolic blood pressure 81 mm[Hg] Ivette Grimes MD Work Phone: [facility] 06-06-2023 09:39-0400 Heart rate 51 /min Ivette Grimes MD Work Phone: [facility] 06-06-2023 09:39-0400 SaO2% (BldA) [Mass fraction] 98 % Ivette Grimes MD Work Phone: [facility] 06-06-2023 09:39-0400 Systolic blood pressure 129 mm[Hg] Ivette Grimes MD Work Phone: [facility] 05-20-2023 22:47-0400 Diastolic blood pressure 88 mm[Hg] Dr. Ivette Grimes Work Phone: [facility] 05-20-2023 22:47-0400 Heart rate 78 /min Dr. Ivette Grimes Work Phone: [facility] 05-20-2023 22:47-0400 Respiratory rate 18 /min Dr. Ivette Grimes Work Phone: [facility] 05-20-2023 22:47-0400 SaO2% (BldA) [Mass fraction] 100 % Dr. Ivette Grimes Work Phone: [facility] 05-20-2023 22:47-0400 Systolic blood pressure 134 mm[Hg] Dr. Ivette Grimes Work Phone: [facility] 05-20-2023 21:28-0400 Body height 170.[address] Ivette Grimes Work Phone: [facility] 05-20-2023 21:28-0400 Body mass index (BMI) [Ratio] 45.4 kg/m2 Dr. Ivette Grimes Work Phone: [facility] 05-20-2023 21:28-0400 Body temperature 97.5 [degF] Dr. Ivette Grimes Work Phone: [facility] 05-20-2023 21:28-0400 Body weight 131.[address] Ivette Grimes Work Phone: [facility] 05-17-2023 10:04-0400 Body height 170.2 cm Fatuma Queener PA-C Work Phone: [facility] 05-17-2023 10:04-0400 Body weight 132 kg Fatuma Queener PA-C Work Phone: [facility] 05-17-2023 10:04-0400 Diastolic blood pressure 70 mm[Hg] Fatuma Queener PA-C Work Phone: [facility] 05-17-2023 10:04-0400 Heart rate 68 /min Fatuma Queener PA-C Work Phone: [facility] 05-17-2023 10:04-0400 SaO2% (BldA) [Mass fraction] 97 % Fatuma Queener PA-C Work Phone: [facility] 05-17-2023 10:04-0400 Systolic blood pressure 123 mm[Hg] Fatuma Queener PA-C Work Phone: [facility] 03-05-2023 12:35-0400 Body temperature 97.81 [degF] Fatuma Queener PA-C Work Phone: [facility] 03-05-2023 12:35-0400 Body weight 130.09 kg Fatuma Robertser PA-C Work Phone: [facility] 03-05-2023 12:35-0400 Diastolic blood pressure 76 mm[Hg] Fatuma Queener PA-C Work Phone: [facility] 03-05-2023 12:35-0400 Heart rate 61 /min Fatuma Queener PA-C Work Phone: [facility] 03-05-2023 12:35-0400 Respiratory rate 16 /min Fatuma Queener PA-C Work Phone: [facility] 03-05-2023 12:35-0400 SaO2% (BldA) [Mass fraction] 98 % Fatuma Queener PA-C Work Phone: [facility] 03-05-2023 12:35-0400 Systolic blood pressure 145 mm[Hg] Fatuma Queener PA-C Work Phone: [facility] 03-05-2023 08:56-0400 Body height 170.2 cm Galina Camacho MD Work Phone: [facility] 03-05-2023 08:56-0400 Body weight 130.18 kg Galina Camacho MD Work Phone: [facility] 03-05-2023 08:56-0400 Diastolic blood pressure 82 mm[Hg] Galina Camacho MD Work Phone: [facility] 03-05-2023 08:56-0400 Systolic blood pressure 122 mm[Hg] Galina Camacho MD Work Phone: [facility] 02-28-2023 14:20-0400 Body weight 131.54 kg Ivette Grimes MD Work Phone: [facility] 02-28-2023 14:20-0400 Diastolic blood pressure 72 mm[Hg] Ivette Grimes MD Work Phone: [facility] 02-28-2023 14:20-0400 Heart rate 79 /min Ivette Grimes MD Work Phone: [facility] 02-28-2023 14:20-0400 SaO2% (BldA) [Mass fraction] 97 % Ivette Grimes MD Work Phone: [facility] 02-28-2023 14:20-0400 Systolic blood pressure 138 mm[Hg] Ivette Grimes MD Work Phone: [facility] 01-31-2023 09:21-0400 Body weight 130.18 kg Ivette Grimes MD Work Phone: [facility] 01-31-2023 09:21-0400 Diastolic blood pressure 82 mm[Hg] Ivette Grimes MD Work Phone: [facility] 01-31-2023 09:21-0400 Heart rate 65 /min Ivette Grimes MD Work Phone: [facility] 01-31-2023 09:21-0400 SaO2% (BldA) [Mass fraction] 98 % Ivette Grimes MD Work Phone: [facility] 01-31-2023 09:21-0400 Systolic blood pressure 120 mm[Hg] Ivette Grimes MD Work Phone: [facility] 01-24-2023 10:23-0400 Heart rate 64 /min Elle Rasheed MD Work Phone: [facility] 01-24-2023 10:23-0400 Respiratory rate 16 /min Elle Rasheed MD Work Phone: [facility] 01-24-2023 10:23-0400 SaO2% (BldA) [Mass fraction] 98 % Elle Rasheed MD Work Phone: [facility] 01-17-2023 11:21-0400 Body height 170.2 cm Ivette Grimes MD Work Phone: [facility] 01-17-2023 11:21-0400 Body weight 128.82 kg Ivette Grimes MD Work Phone: [facility] 01-17-2023 11:21-0400 Diastolic blood pressure 84 mm[Hg] Ivette Grimes MD Work Phone: [facility] 01-17-2023 11:21-0400 Heart rate 70 /min Ivette Grimes MD Work Phone: [facility] 01-17-2023 11:21-0400 SaO2% (BldA) [Mass fraction] 98 % Ivette Grimes MD Work Phone: [facility] 01-17-2023 11:21-0400 Systolic blood pressure 148 mm[Hg] Ivette Grimes MD Work Phone: [facility] 01-04-2023 11:30-0500 Body weight 128.37 kg Ivette Grimes MD Work Phone: [facility] 01-04-2023 11:30-0500 Diastolic blood pressure 78 mm[Hg] Ivette Grimes MD Work Phone: [facility] 01-04-2023 11:30-0500 Heart rate 85 /min Ivette Grimes MD Work Phone: [facility] 01-04-2023 11:30-0500 SaO2% (BldA) [Mass fraction] 97 % Ivette Grimes MD Work Phone: [facility] 01-04-2023 11:30-0500 Systolic blood pressure 132 mm[Hg] Ivette Grimes MD Work Phone: [facility] 12-28-2022 14:55-0500 Body height 170.[address] Ivette Grimes Work Phone: [facility] 12-28-2022 14:55-0500 Body mass index (BMI) [Ratio] 44.6 kg/m2 Dr. Ivette Grimes Work Phone: [facility] 12-28-2022 14:55-0500 Body weight 129.[address] Ivette Grimes Work Phone: [facility] 12-28-2022 14:55-0500 Diastolic blood pressure 79 mm[Hg] Dr. Ivette Grimes Work Phone: [facility] 12-28-2022 14:55-0500 Heart rate 71 /min Dr. Ivette Grimes Work Phone: [facility] 12-28-2022 14:55-0500 Respiratory rate 20 /min Dr. Ivette Grimes Work Phone: [facility] 12-28-2022 14:55-0500 Systolic blood pressure 130 mm[Hg] Dr. Ivette Grimes Work Phone: [facility] 12-26-2022 11:10-0500 Body height 170.2 cm Ivette Grimes MD Work Phone: [facility] 12-26-2022 11:10-0500 Body weight 128.37 kg Ivette Griems MD Work Phone: [facility] 12-26-2022 11:10-0500 Diastolic blood pressure 74 mm[Hg] Ivette Grimes MD Work Phone: [facility] 12-26-2022 11:10-0500 Heart rate 83 /min Ivette Grimes MD Work Phone: [facility] 12-26-2022 11:10-0500 SaO2% (BldA) [Mass fraction] 97 % Ivette Grimes MD Work Phone: [facility] 12-26-2022 11:10-0500 Systolic blood pressure 140 mm[Hg] Ivette Grimes MD Work Phone: [facility] 12-14-2022 09:16-0500 Body height 170.2 cm Ivette Grimes MD Work Phone: [facility] 12-14-2022 09:16-0500 Body weight 125.65 kg Ivette Grimes MD Work Phone: [facility] 12-14-2022 09:16-0500 Diastolic blood pressure 98 mm[Hg] Ivette Grimes MD Work Phone: [facility] 12-14-2022 09:16-0500 Heart rate 75 /min Ivette Grimes MD Work Phone: [facility] 12-14-2022 09:16-0500 SaO2% (BldA) [Mass fraction] 98 % Ivette Grimes MD Work Phone: [facility] 12-14-2022 09:16-0500 Systolic blood pressure 160 mm[Hg] Ivette Grimes MD Work Phone: [facility] 12-07-2022 16:34-0500 Body temperature 98.8 [degF] Ivette Price Jr., MD Work Phone: [facility] 12-07-2022 16:34-0500 Body weight 126.01 kg Ivette Price Jr., MD Work Phone: [facility] 12-07-2022 16:34-0500 Diastolic blood pressure 94 mm[Hg] Ivette Price Jr., MD Work Phone: [facility] 12-07-2022 16:34-0500 Heart rate 72 /min Ivette Price Jr., MD Work Phone: [facility] 12-07-2022 16:34-0500 Respiratory rate 20 /min Ivette Price Jr., MD Work Phone: [facility] 12-07-2022 16:34-0500 SaO2% (BldA) [Mass fraction] 97 % Ivette Price Jr., MD Work Phone: [facility] 12-07-2022 16:34-0500 Systolic blood pressure 160 mm[Hg] Ivette Price Jr., MD Work Phone: [facility] 12-06-2022 08:07-0500 Body mass index (BMI) [Ratio] 43.4 kg/m2 Dr. Ivette Grimes Work Phone: [facility] 12-06-2022 08:07-0500 Body temperature 97.7 [degF] Dr. Ivette Grimes Work Phone: 0(587)352-200568 [place] [address] 12-06-2022 08:07-0500 Body weight 125.[address] Ivette Grimes Work Phone: 9(083)921-752768 [place] [address] 12-06-2022 08:07-0500 Diastolic blood pressure 79 mm[Hg] Dr. Ivette Grimes Work Phone: 2(348)988-330134 [address] 12-06-2022 08:07-0500 Heart rate 70 /min Dr. Ivette Grimes Work Phone: 3(065)528-239868 [place] [address] 12-06-2022 08:07-0500 Respiratory rate 18 /min Dr. Ivette Grimes Work Phone: [facility] 12-06-2022 08:07-0500 SaO2% (BldA) [Mass fraction] 98 % Dr. Ivette Grimes Work Phone: [facility] 12-06-2022 08:07-0500 Systolic blood pressure 141 mm[Hg] Dr. Ivette Grimes Work Phone: 1(102)309-356768 [place] [address] 12-03-2022 20:26-0500 Heart rate 75 /min Dr. Ivette Grimes Work Phone: 8(219)219-594768 [place] [address] 12-03-2022 20:26-0500 Respiratory rate 18 /min Dr. Ivette Grimes Work Phone: 8(755)423-277268 [place] [address] 12-03-2022 20:26-0500 SaO2% (BldA) [Mass fraction] 96 % Dr. Ivette Grimes Work Phone: 8(613)508-796668 [place] [address] 12-03-2022 18:25-0500 Body mass index (BMI) [Ratio] 43.4 kg/m2 Dr. Ivette Grimes Work Phone: 0(446)100-589268 [place] [address] 12-03-2022 18:25-0500 Body temperature 97.8 [degF] Dr. Ivette Grimes Work Phone: 0(567)881-677868 [place] [address] 12-03-2022 18:25-0500 Body weight 125.[address] Ivette Grimes Work Phone: 2(688)708-591768 [place] [address] 12-03-2022 18:25-0500 Diastolic blood pressure 91 mm[Hg] Dr. Ivette Grimes Work Phone: 3(631)963-409768 [place] [address] 12-03-2022 18:25-0500 Systolic blood pressure 176 mm[Hg] Dr. Ivette Grimes Work Phone: 0(436)602-405368 [place] [address] 11-27-2022 14:36-0500 Body height 170.[address] Ivette Grimes Work Phone: 9(830)792-343968 [place] [address] 11-27-2022 14:36-0500 Body mass index (BMI) [Ratio] 42.7 kg/m2 Dr. Ivette Grimes Work Phone: 3(676)804-627768 [place] [address] 11-27-2022 14:36-0500 Body temperature 98.1 [degF] Dr. Ivette Grimes Work Phone: 9(347)663-263668 [place] [address] 11-27-2022 14:36-0500 Body weight 123.[address] Ivette Grimes Work Phone: 6(897)322-869568 [place] [address] 11-27-2022 14:36-0500 Diastolic blood pressure 81 mm[Hg] Dr. Ivette Grimes Work Phone: 6(583)030-722668 [place] [address] 11-27-2022 14:36-0500 Heart rate 70 /min Dr. Ivette Grimes Work Phone: 0(972)484-400268 [place] [address] 11-27-2022 14:36-0500 Respiratory rate 15 /min Dr. Ivette Grimes Work Phone: [facility] 11-27-2022 14:36-0500 SaO2% (BldA) [Mass fraction] 99 % Dr. Ivette Grimes Work Phone: [facility] 11-27-2022 14:36-0500 Systolic blood pressure 154 mm[Hg] Dr. Ivette Grimes Work Phone: [facility] 11-27-2022 13:51-0500 Body height 170.2 cm Ivette Grimes MD Work Phone: [facility] 11-27-2022 13:51-0500 Body weight 123.83 kg Ivette Grimes MD Work Phone: [facility] 11-27-2022 13:51-0500 Diastolic blood pressure 84 mm[Hg] Ivette Grimes MD Work Phone: [facility] 11-27-2022 13:51-0500 Heart rate 75 /min Ivette Grimes MD Work Phone: [facility] 11-27-2022 13:51-0500 SaO2% (BldA) [Mass fraction] 97 % Ivette Grimes MD Work Phone: [facility] 11-27-2022 13:51-0500 Systolic blood pressure 150 mm[Hg] Ivette Grimes MD Work Phone: [facility] 11-24-2022 15:07-0500 Heart rate 67 /min Dr. Ivette Grimes Work Phone: [facility] 11-24-2022 15:07-0500 SaO2% (BldA) [Mass fraction] 97 % Dr. Ivette Grimes Work Phone: [facility] 11-24-2022 13:43-0500 Diastolic blood pressure 64 mm[Hg] Dr. Ivette Grimes Work Phone: [facility] 11-24-2022 13:43-0500 Respiratory rate 16 /min Dr. Ivette Grimes Work Phone: [facility] 11-24-2022 13:43-0500 Systolic blood pressure 132 mm[Hg] Dr. Ivette Grimes Work Phone: [facility] 11-24-2022 11:44-0500 Body height 170.[address] Ivette Grimes Work Phone: [facility] 11-24-2022 11:44-0500 Body mass index (BMI) [Ratio] 47.2 kg/m2 Dr. Ivette Grimes Work Phone: [facility] 11-24-2022 11:44-0500 Body temperature 97.9 [degF] Dr. Ivette Grimes Work Phone: [facility] 11-24-2022 11:44-0500 Body weight [address] Ivette Grimes Work Phone: [facility] 11-08-2022 13:35-0500 Heart rate 70 /min Adelina Marinelli LIBRARY CLERK [employer].CHEMISTRY LECTURER Work Phone: [facility] 11-08-2022 13:35-0500 Respiratory rate 14 /min Adelina Marinelli LIBRARY CLERK [employer].CHEMISTRY LECTURER Work Phone: [facility] 11-08-2022 13:35-0500 SaO2% (BldA) [Mass fraction] 98 % Adelina Marinelli LIBRARY CLERK [employer].CHEMISTRY LECTURER Work Phone: [facility] 09-04-2022 11:50-0400 Body height 170.2 cm Ivette Grimes MD Work Phone: [facility] 09-04-2022 11:50-0400 Body weight 123.11 kg Ivette Grimes MD Work Phone: [facility] 09-04-2022 11:50-0400 Diastolic blood pressure 80 mm[Hg] Ivette Grimes MD Work Phone: [facility] 09-04-2022 11:50-0400 Heart rate 74 /min Ivette Grimes MD Work Phone: [facility] 09-04-2022 11:50-0400 SaO2% (BldA) [Mass fraction] 98 % Ivette Grimes MD Work Phone: [facility] 09-04-2022 11:50-0400 Systolic blood pressure 160 mm[Hg] Ivette Grimes MD Work Phone: [facility] 08-16-2022 12:57-0400 Body height 170.[address] Ivette Grimes Work Phone: [facility] Work Phone: 08-16-2022 12:57-0400 Body mass index (BMI) [Ratio] 42.3 kg/m2 Dr. Ivette Grimes Work Phone: [facility] 08-16-2022 12:57-0400 Body weight 122.[address] Ivette Grimes Work Phone: 7(369)738-252134 [address] 08-16-2022 12:57-0400 Diastolic blood pressure 78 mm[Hg] Dr. Ivette Grimes Work Phone: 3(117)070-881368 [place] [address] 08-16-2022 12:57-0400 Heart rate 73 /min Dr. Ivette Grimes Work Phone: 0(056)426-459834 [address] 08-16-2022 12:57-0400 Respiratory rate 16 /min Dr. Ivette Grimes Work Phone: 6(495)100-229934 [address] 08-16-2022 12:57-0400 Systolic blood pressure 117 mm[Hg] Dr. Ivette Grimes Work Phone: 3(342)[phone] [place] [address] 08-07-2022 07:38-0400 Body height 170.[address] Ivette Grimes Work Phone: [facility] Work Phone: 08-07-2022 07:38-0400 Body mass index (BMI) [Ratio] 42.5 kg/m2 Dr. Ivette Grimes Work Phone: 8(618)[phone] [place] [address] 08-07-2022 07:38-0400 Body temperature 99.1 [degF] Dr. Ivette Grimes Work Phone: 7(506)[phone] [address] 08-07-2022 07:38-0400 Body weight 123.[address] Ivette Grimes Work Phone: [facility] 08-07-2022 07:38-0400 Diastolic blood pressure 81 mm[Hg] Dr. Ivette Grimes Work Phone: [facility] 08-07-2022 07:38-0400 Heart rate 65 /min Dr. Ivette Grimes Work Phone: [facility] 08-07-2022 07:38-0400 Respiratory rate 16 /min Dr. Ivette Grimes Work Phone: [facility] 08-07-2022 07:38-0400 SaO2% (BldA) [Mass fraction] 97 % Dr. Ivette Grimes Work Phone: [facility] 08-07-2022 07:38-0400 Systolic blood pressure 130 mm[Hg] Dr. Ivette Grimes Work Phone: [facility] 08-02-2022 09:50-0400 Body weight 122.02 kg Ivette Grimes MD Work Phone: [facility] 08-02-2022 09:50-0400 Diastolic blood pressure 82 mm[Hg] Ivette Grimes MD Work Phone: [facility] 08-02-2022 09:50-0400 Heart rate 60 /min Ivette Grimes MD Work Phone: [facility] 08-02-2022 09:50-0400 Systolic blood pressure 126 mm[Hg] Ivette Grimes MD Work Phone: [facility] 07-19-2022 12:57-0400 Body height 170.2 cm Karen Bansal LIBRARY CLERK [employer].CHEMISTRY LECTURER Work Phone: [facility] 07-19-2022 12:57-0400 Body weight 122.92 kg Karen Bansal LIBRARY CLERK [employer].CHEMISTRY LECTURER Work Phone: [facility] 07-19-2022 12:57-0400 Diastolic blood pressure 57 mm[Hg] Karen Bansal LIBRARY CLERK [employer].CHEMISTRY LECTURER Work Phone: [facility] 07-19-2022 12:57-0400 Heart rate 76 /min Karen Dowellerickson LIBRARY CLERK [employer]ALKING [employer].CHEMISTRY LECTURER Work Phone: [facility] 07-19-2022 12:57-0400 Systolic blood pressure 115 mm[Hg] Karen Bansal LIBRARY CLERK [employer].CHEMISTRY LECTURER Work Phone: [facility] 06-07-2022 15:13-0400 Body temperature 97.81 [degF] Tara Dahlhausen LIBRARY CLERK TALKING [employer].CHEMISTRY LECTURER Work Phone: [facility] 06-07-2022 15:13-0400 Body weight 119.84 kg Tara Dahlhausen LIBRARY CLERK [employer].CHEMISTRY LECTURER Work Phone: [facility] 06-07-2022 15:13-0400 Diastolic blood pressure 68 mm[Hg] Tara Dahlhausen LIBRARY CLERK [employer].CHEMISTRY LECTURER Work Phone: [facility] 06-07-2022 15:13-0400 Heart rate 80 /min Tara Dahlhausen LIBRARY CLERK [employer].CHEMISTRY LECTURER Work Phone: [facility] 06-07-2022 15:13-0400 Respiratory rate 22 /min Tara Dahlhausen LIBRARY CLERK [employer].CHEMISTRY LECTURER Work Phone: [facility] 06-07-2022 15:13-0400 SaO2% (BldA) [Mass fraction] 98 % Tara Dahlhausen LIBRARY CLERK [employer].CHEMISTRY LECTURER Work Phone: [facility] 06-07-2022 15:13-0400 Systolic blood pressure 112 mm[Hg] Tara Dahlhausen LIBRARY CLERK [employer]ALKING [employer].CHEMISTRY LECTURER Work Phone: [facility] 06-04-2022 14:39-0400 Body height 170.[address] Ivette Grimes Work Phone: [facility] Work Phone: 05-24-2022 11:01-0400 Heart rate 78 /min Adelina Marinelli LIBRARY CLERK [employer].CHEMISTRY LECTURER Work Phone: [facility] 05-24-2022 11:01-0400 Respiratory rate 18 /min Adelina Marinelli LIBRARY CLERK [employer].CHEMISTRY LECTURER Work Phone: [facility] 05-24-2022 11:01-0400 SaO2% (BldA) [Mass fraction] 98 % Adelina Marinelli LIBRARY CLERK [employer].CHEMISTRY LECTURER Work Phone: [facility] 05-10-2022 10:54-0400 Diastolic blood pressure 75 mm[Hg] Elle Rasheed MD Work Phone: [facility] 05-10-2022 10:54-0400 Heart rate 61 /min Elle Rasheed MD Work Phone: [facility] 05-10-2022 10:54-0400 Respiratory rate 20 /min Elle Rasheed MD Work Phone: [facility] 05-10-2022 10:54-0400 SaO2% (BldA) [Mass fraction] 98 % Elle Rasheed MD Work Phone: [facility] 05-10-2022 10:54-0400 Systolic blood pressure 130 mm[Hg] Elle Rasheed MD Work Phone: [facility] 05-01-2022 14:39-0400 Body weight 118.39 kg Ivette Grimes MD Work Phone: [facility] 05-01-2022 14:39-0400 Diastolic blood pressure 80 mm[Hg] Ivette Grimes MD Work Phone: [facility] 05-01-2022 14:39-0400 Heart rate 68 /min Ivette Grimes MD Work Phone: [facility] 05-01-2022 14:39-0400 Respiratory rate 18 /min Ivette Grimes MD Work Phone: [facility] 05-01-2022 14:39-0400 SaO2% (BldA) [Mass fraction] 98 % Ivette Grimes MD Work Phone: [facility] 05-01-2022 14:39-0400 Systolic blood pressure 132 mm[Hg] Ivette Grimes MD Work Phone: [facility] 04-09-2022 15:29-0400 Body temperature 97.5 [degF] Ivette Price Jr., MD Work Phone: [facility] 04-09-2022 15:29-0400 Body weight 122.2 kg Ivette Price Jr., MD Work Phone: [facility] 04-09-2022 15:29-0400 Diastolic blood pressure 72 mm[Hg] Ivette Price Jr., MD Work Phone: [facility] 04-09-2022 15:29-0400 Heart rate 74 /min Ivette Price Jr., MD Work Phone: [facility] 04-09-2022 15:29-0400 Respiratory rate 18 /min Ivette Price Jr., MD Work Phone: [facility] 04-09-2022 15:29-0400 SaO2% (BldA) [Mass fraction] 97 % Ivette Price Jr., MD Work Phone: [facility] 04-09-2022 15:29-0400 Systolic blood pressure 138 mm[Hg] Ivette Price Jr., MD Work Phone: [facility] 03-29-2022 10:58-0400 Heart rate 62 /min Elle Rasheed MD Work Phone: [facility] 03-29-2022 10:58-0400 Respiratory rate 15 /min Elle Rasheed MD Work Phone: [facility] 03-29-2022 10:58-0400 SaO2% (BldA) [Mass fraction] 98 % Elle Rasheed MD Work Phone: [facility] 02-28-2022 16:31-0400 Body weight 120.66 kg Ivette Grimes MD Work Phone: [facility] 02-28-2022 16:31-0400 Diastolic blood pressure 82 mm[Hg] Ivette Grimes MD Work Phone: [facility] 02-28-2022 16:31-0400 Heart rate 72 /min Ivette Grimes MD Work Phone: [facility] 02-28-2022 16:31-0400 Systolic blood pressure 142 mm[Hg] Ivette Grimes MD Work Phone: [facility] 11-21-2021 13:58-0500 Body height 170.[address] Ivette Grimes Work Phone: [facility] Work Phone: 09-09-2017 14:42-0500 BMI (Body Mass Index) 41.78 kg/m2 Amparo Hitchcock MD [facility] 09-09-2017 14:42-0500 Body Temperature 98.5 [degF] Amparo Hitchcock MD [facility] 09-09-2017 14:42-0500 Body Temperature 98.49 [degF] Amparo Hitchcock MD [facility] 09-09-2017 14:42-0500 BP Diastolic 78 mm[Hg] Amparo Hitcchock MD [facility] 09-09-2017 14:42-0500 BP Systolic 137 mm[Hg] Amparo Hitchcock MD [facility] 09-09-2017 14:42-0500 Height 172.72 cm Amparo Hitchcock MD [facility] 09-09-2017 14:42-0500 Pulse (Heart Rate) 67 /min Amparo Hitchcock MD [facility] 09-09-2017 14:42-0500 Respiratory Rate 16 /min Amparo Hitchcock MD [facility] 09-09-2017 14:42-0500 Weight 124.65 kg Amparo Hitchcock MD [facility] 07-22-2017 16:06-0400 BMI (Body Mass Index) 39.53 kg/m2 [facility] Work Phone: 07-22-2017 16:06-0400 Pulse (Heart Rate) 95 /min [facility] Work Phone: 07-22-2017 16:06-0400 Respiratory Rate 22 /min [facility] Work Phone: 07-22-2017 16:06-0400 Weight 117.94 kg Roya GALVEZ Medical [facility] Work Phone: 05-10-2017 14:47-0400 Body Temperature 97.7 [degF] Roya GALVEZ Medical [facility] Work Phone: 05-10-2017 14:47-0400 BP Diastolic 84 mm[Hg] Roya GALVEZ Medical [facility] Work Phone: 05-10-2017 14:47-0400 BP Systolic 132 mm[Hg] Roya GALVEZ Medical [facility] Work Phone: 05-10-2017 14:47-0400 Height 172.72 cm Roya GALVEZ Medical [facility] Work Phone: Encounters Encounter Date Encounter Type Care Provider Facility Start: 09-16-2025 Encounter for other preprocedural examination [facility] Start: 09-16-2025 ambulatory [facility] Start: 09-16-2025 End: 09-16-2025 ambulatory [facility] Facility:[facility] Start: 09-09-2025 End: 09-09-2025 ambulatory [facility] Start: 09-02-2025 End: 09-02-2025 ambulatory [facility] Start: 08-30-2025 End: 08-30-2025 ambulatory [facility] Start: 08-27-2025 End: 08-27-2025 ambulatory [facility] Start: 08-11-2025 End: 08-11-2025 ambulatory [facility] Facility:[facility] Start: 08-05-2025 End: 08-05-2025 Dr. Brett Quiroga MD -[facility] Work Phone: Start: 08-05-2025 End: 08-05-[address] Ivette Grimes MD Work Phone: -[facility] Start: 08-04-2025 End: 08-04-2025 ambulatory AMANDA URIBESHI Facility:[facility] Start: 07-29-2025 End: 07-29-2025 ambulatory IVETTE GRIMES Facility:[facility] Start: 07-23-2025 End: 07-23-[address] Ivette Grimes MD Work Phone: -Laboratory Start: 07-23-2025 End: 07-23-2025 Dr. Ivette Grimes MD -Laboratory Work Phone: Start: 07-23-2025 End: 07-23-2025 ambulatory Ivette Patinoo Facility:[facility] Start: 07-15-2025 End: 07-15-2025 Telephone encounter Lubna De La Garza LIBRARY CLERK [employer]OO[employer].CHEMISTRY LECTURER Work Phone: [facility] Start: 07-15-2025 End: 07-15-2025 Office outpatient visit 25 minutes Lubna De La Garza LIBRARY CLERK [employer]ALK[employer]OOKS.CHEMISTRY LECTURER Work Phone: [facility] Comment on above: Sepsis due [...] End: 07-15-2025 ambulatory LUBNA DE LA GARZA Facility:[facility] Start: 07-09-2025 End: 07-09-[address] Brett Quiroga MD -[facility] Work Phone: Start: 07-09-2025 End: 07-09-2025 Dr. Brett Quiroga MD -[facility] Work Phone: Start: 07-09-2025 End: 07-09-[address] Ivette Grimes MD Work Phone: -[facility] Comment on above: Transition Of Care ( [facility] Discharge 07/07/25) Start: 07-07-2025 Non-patient / Non-visit Dr. Brittany emmanuel MD -[facility] Work Phone: Start: 07-07-2025 Dr. Brittany Harrison [facility] Work Phone: Start: 07-06-2025 Non-patient / Non-visit Dr. Rachelle Reinoso MD -[facility] Work Phone: Start: 07-06-2025 Dr. Jose Juan Reinoso MD -[facility] Work Phone: Start: 07-05-2025 End: 07-07-2025 Evaluation and management of inpatient Dr. Shana Mendoza MD -Intensive Care Unit Work Phone: Start: 07-05-2025 ambulatory Shana Mendoza Facility [facility] Start: 07-05-2025 Non-patient / Non-visit Dr. Shana Mendoza MD -[facility] Work Phone: Start: 07-05-2025 End: 07-07-2025 Dr. Brittany Harrison MD -Intensive Care Unit Work Phone: Start: 07-04-2025 End: 07-06-2025 Refill Ievtte Grimes MD Work Phone: [facility] Comment on above: Refill Request Start: 06-25-2025 End: 06-25-[address] Brett Quiroga MD -[facility] Work Phone: Start: 06-25-2025 End: 06-25-2025 Dr. Brett Quiroga MD -[facility] Work Phone: Start: 06-25-2025 End: 06-25-[address] Ivette Grimes MD Work Phone: -[facility] Start: 06-23-2025 Non-patient / Non-visit Dr. Brett hernandez MD -[facility] Start: 06-23-2025 End: 06-23-2025 Admission to same day surgery center Dr. Brett Quiroga MD -[facility] Start: 06-23-2025 End: 06-23-2025 Dr. Brett Quiroga MD [facility] Start: 06-23-2025 End: 06-23-[address] Ivette Grimes MD Work Phone: -[facility] Start: 06-17-2025 End: 06-17-[address] Bibiana Rehman DC -[facility] Work Phone: Start: 06-17-2025 End: 06-17-2025 Dr. Bibiana Rehman DC -[facility] Work Phone: Start: 06-17-2025 End: 06-17-[address] Ivette Grimes MD Work Phone: -[facility] Start: 06-16-2025 End: 06-16-2025 Refill Ivette Grimes MD Work Phone: [facility] Comment on above: Refill Request Start: 06-10-2025 ambulatory Brett Quiroga Facility :[facility] Start: 06-10-2025 Non-patient / Non-visit Dr. Carson SHEARER -[facility] Work Phone: Start: 06-10-2025 Dr. Vin Montes MD -[facility] Work Phone: Start: 06-09-2025 End: 06-18-2025 Telephone encounter Ivette Grimes MD Work Phone: [facility] Comment on above: Results Start: 06-09-2025 End: 06-09-[address] Ivette Grimes MD Work Phone: -Laboratory Start: 06-09-2025 End: 06-09-[address] Ivette Grimes MD -Laboratory Work Phone: Start: 06-09-2025 End: 06-09-2025 Dr. Ivette Grimes MD -Laboratory Work Phone: Start: 06-09-2025 End: 06-09-2025 ambulatory Ivette Grimes Facility:[facility] Start: 06-07-2025 End: 06-07-2025 Patient encounter procedure Ivette Grimes MD Work Phone: [facility] Comment on above: Well adult exam (Carolyn [...] encounter status Ivette Grimes MD Work Phone: [facility] Start: 06-07-2025 End: 06-07-2025 ambulatory IVETTE GRIMES Facility:[facility] Start: 06-07-2025 Encounter for genera l adult medical examination without abnormal findings IVETTE GRIMES [facility] Start: 06-05-2025 Registered Referred HEALTH RISK ASSE SSMENT -Laboratory Work Phone: Start: 06-05-2025 HEALTH RISK ASSESSMENT -Laboratory Work Phone: Start: 06-05-2025 ambulatory Health Risk Assessment Facility:[facility] Start: 06-01-2025 End: 06-01-[address] Bibiana Rehman DC -[facility] Work Phone: Start: 06-01-2025 End: 06-01-2025 Dr. Bibiana Rehman DC -[facility] Work Phone: Start: 06-01-2025 End: 06-01-[address] Ivette Grimes MD Work Phone: -[facility] Start: 05-11-2025 ambulatory Ivette Grimes Facility:[facility] Start: 05-11-[address] Ivette baryr MD -Physical Therapy Work Phone: Start: 05-11-2025 Dr. Ivette Grimes MD -Ph ysical Therapy Work Phone: Start: 05-06-2025 End: 05-06-[address] Brett Quiroga MD -[facility] Work Phone: Start: 05-06-2025 End: 05-06-2025 Dr. Brett Quiroga MD -[facility] Work Phone: Start: 05-06-2025 End: 05-06-[address] Ivette Grimes MD Work Phone: -[facility] Start: 05-05-[address] Ivette barry MD -Physical Therapy Work Phone: Start: 04-21-2025 End: 04-21-[address] Bibiana Rehman DC -[facility] Work Phone: Start: 04-21-2025 End: 04-21-2025 Dr. Bibiana Rehman DC -[facility] Work Phone: Start: 04-21-2025 End: 04-21-[address] Ivette Grimes MD Work Phone: [facility] Work Phone: Start: 04-20-[address] Ivette barry MD -Physical Therapy Work Phone: Start: 04-17-2025 End: 04-17-[address] Ivette Grimes MD Work Phone: [facility] Work Phone: Start: 04-17-2025 End: 04-17-[address] Brett Quiroga MD -[facility] Work Phone: Start: 04-17-2025 End: 04-17-2025 Dr. Brett Quiroga MD -[facility] Work Phone: Start: 04-17-2025 End: 04-17-2025 ambulatory Ivette Grimes Facility:[facility] Start: 04-12-2025 End: 04-12-2025 ambulatory Ivette Grimes MD Work Phone: [facility] Comment on above: Muscle relaxer Start: 04-07-2025 End: 04-07-2025 Telephone encounter Ivette Grimes MD Work Phone: [facility] Comment on above: Rx Refills Start: 04-05-2025 End: 04-05-[address] Bibiana Rehman DC -[facility] Work Phone: Start: 04-05-2025 End: 04-05-[address] Ivette Grimes MD Work Phone: [facility] Work Phone: Start: 04-01-2025 End: 04-01-2025 Telephone encounter Amanda Arteaga PA-C Work Phone: Neurology Comment on above: Botox Approved Start: 03-22-2025 End: 03-22-[address] Brett Quiroga MD -[facility] Work Phone: Start: 03-22-2025 End: 03-22-[address] Ivette Grimes MD Work Phone: [facility] Work Phone: Start: 03-19-2025 End: 03-19-2025 Telephone encounter Amanda Arteaga PA-C Work Phone: Neurology Comment on above: Botox Referral Start: 03-11-2025 End: 03-11-[address] Ivette Grimes MD Work Phone: [facility] Work Phone: Start: 03-11-2025 End: 03-11-[address] Brett Quiroga MD -Radiology, [facility] Work Phone: Start: 03-11-2025 End: 03-11-2025 ambulatory Ivette Grimes Facility:[facility] Start: 03-09-2025 End: 03-09-[address] Bibiana Rehman DC -[facility] Work Phone: Start: 03-09-2025 End: 03-09-2025 ambulatory [facility]ette [place] Facility:[facility] Start: 03-09-[address] Ivette barry MD -Physical Therapy Work Phone: Start: 03-09-2025 End: 03-09-2025 Telemedicine consultation with patient Amanda Cedeno Chandler FULLER Work Phone: Neurology Start: 03-09-2025 End: 03-09-2025 ambulatory Amanda Cedeno [place] FULLER Work Phone: Neurology Comment on above: Intractable chronic migraine without aura and with status migrainosus (Primary Dx) Start: 03-04-2025 End: 03-04-2025 Telephone encounter Amanda M Chandler FULLER Work Phone: Neurology Start: 03-02-2025 End: 03-02-2025 Telemedicine consultation with patient Ivette Grimes MD Work Phone: [facility] [place] Start: 03-02-2025 End: 03-02-2025 ambulatory Ivette Grimes MD Work Phone: [facility] [place] Comment on above: Intractable chronic migraine without aura and without status migrainosus (Primary Dx); Chronic left shoulder pain Start: 02-16-2025 ambulatory [facility] Start: 02-04-2025 End: 02-04-[address] Bibiana Rehman DC -[facility] Work Phone: Start: 02-04-2025 End: 02-04-2025 ambulatory Ivette [place] Facility:[facility] Start: 01-28-2025 End: 01-28-2025 Chart abstracting Ivette Grimes MD Work Phone: [facility] [place] Start: 01-28-2025 End: 03-30-2025 Follow-up encounter Ivette Grimes MD Work Phone: [facility] [place] Start: 01-28-2025 End: 02-08-2025 Telephone encounter Ivette Grimes MD Work Phone: [facility] [place] Comment on above: PA new dose of ozemp ic Results Start: 01-28-2025 End: 01-28-[address] Ivette Grimes MD Work Phone: [facility] Work Phone: Start: 01-28-2025 End: 01-28-[address] Ivette Grimes MD -Laboratory Work Phone: Start: 01-28-2025 End: 01-28-2025 [facility] Start: 01-22-2025 End: 01-22-2025 [facility] Start: 01-22-2025 End: 01-22-2025 Patient encounter procedure Ivette Grimes MD Work Phone: [facility] Comment on above: LETITIA (obstructive sle ep apnea) (Primary Dx); Flank pain; Headache, unspecified headache type; Type 2 diabetes mellitus with microalbuminuria, with long-term current use of insulin (HCC); Essential (primary) hypertension; Chronic left shoulder pain; Anxiety; Screening for depression Start: 12-24-2024 End: 12-25-2024 Refill Ivette Grimes MD Work Phone: [facility] Comment on above: Refill Request Start: 12-21-2024 End: 12-24-2024 Telephone encounter Jenni Jain APRN.CHEMISTRY LECTURER Work Phone: [facility] Comment on above: Results (Labs/Chest xray ) Start: 12-11-2024 End: 12-11-2024 Telephone encounter Ivette Grimes MD Work Phone: [facility] Comment on above: Orders Start: 12-11-2024 End: 12-11-2024 Patient encounter procedure Jenni THORNE -Radiology, [facility] Work Phone: Start: 12-11-2024 End: 12-11-2024 Office outpatient visit 25 minutes Jenni Jain APRN.CHEMISTRY LECTURER Work Phone: [facility] Comment on above: Sinobronchitis (Prim ziyad Dx); Hypokalemia Start: 12-11-2024 End: 12-11-2024 ambulatory JENNIFRANK MAHANJenny Facility:[facility] Start: 12-11-2024 End: 12-11-2024 ambulatory Ivette Grimes Facility:[facility] Start: 11-25-2024 End: 11-25-2024 Refill Ivette Grimes MD Work Phone: [facility] Comment on above: Refill Request Start: 11-23-2024 End: 11-23-2024 Refill Ivette Grimes MD Work Phone: [facility] Comment on above: Refill Request Start: 11-17-2024 End: 12-18-2024 ambulatory Ivette Grimes MD Work Phone: [facility] Start: 11-11-2024 End: 11-11-2024 Emergency department patient visit Dr. Buddy Hall DO -Emergency Department Work Phone: Start: 10-26-2024 End: 10-26-2024 Refill Ivette Grimes MD Work Phone: Psychiatry Comment on above: Refill Request Start: 10-19-2024 End: 10-19-2024 ambulatory Ivette Grimes MD Work Phone: [facility] Comment on above: Flank pain (Primary Dx) Start: 10-19-2024 End: 10-19-2024 Telemedicine consultation with patient Ivette Grimes MD Work Phone: [facility] Start: 10-19-2024 End: 10-19-[address] Bibiana Rehman DC -[facility] Work Phone: Start: 10-19-2024 End: 10-19-2024 ambulatory Ivette [place] Facility:[facility] Start: 10-16-2024 End: 10-16-2024 Emergency department patient visit Dr. Sam Pearl MD -Emergency Department Work Phone: Start: 10-07-2024 ambulatory Ivette [place] Facility:[facility] Start: 09-24-2024 End: 09-24-2024 ambulatory Ivette Grimes MD Work Phone: [facility] Comment on above: Dysuria (Primary Dx) ; Type 2 diabetes mellitus with microalbuminuria, with long-term current use of insulin (HCC); Primary insomnia Start: 09-24-2024 End: 09-24-2024 Telemedicine consultation with patient Ivette Grimes MD Work Phone: [facility] Start: 09-03-2024 End: 09-03-2024 Patient encounter procedure [...] 08-11-2024 Refill Ivette Grimes MD Work Phone: [facility] Comment on above: Refill Request Start: 08-05-2024 End: 08-06-2024 Telephone encounter Ivette Grimes MD Work Phone: [facility] [place] Comment on above: Insurance Authorizat ion (Ozempic ) Start: 08-05-2024 End: 08-05-2024 Patient encounter procedure Ivette Grimes MD Work Phone: [facility] [place] Comment on above: Well adult exam ([facility] alyssa Dx); Essential (primary) hypertension; LETITIA (obstructive sleep apnea); Nonalcoholic fatty liver; Type 2 diabetes mellitus with microalbuminuria, with long-term current use of insulin (HCC); Vertigo; Morbid obesity (HCC); Anxiety; Prolonged Q-T interval on ECG; Herniation of lumbar intervertebral disc with radiculopathy Start: 08-05-2024 End: 08-05-2024 Patient encounter status Ivette Grimes MD Work Phone: [facility] Start: 07-24-2024 End: 07-27-2024 Refill Ivette Grimes MD Work Phone: Psychiatry Comment on above: Refill Request Start: 07-21-2024 End: 07-21-2024 Telephone encounter Ivette Grimes MD Work Phone: [facility] [place] Comment on above: Orders Start: 07-09-2024 End: 07-10-2024 Telephone encounter Ivette Grimes MD Work Phone: [facility] [place] Comment on above: Patient Question Start: 07-08-2024 End: 07-08-2024 Chart abstracting Ivette Grimes MD Work Phone: [facility] [place] Start: 07-08-2024 End: 07-08-2024 Telephone encounter Ivette Grimes MD Work Phone: [facility] [place] Comment on above: Results Start: 07-07-2024 End: 07-07-2024 Chart abstracting Ivette Grimes MD Work Phone: [facility] [place] Start: 07-03-2024 End: 07-03-2024 Patient encounter procedure Ivette Grimes MD Work Phone: [facility] [place] Comment on above: Bronchitis (Primary Dx); Type 2 diabetes mellitus with microalbuminuria, with long-term current use of insulin (HCC); Wheezing Start: 06-27-2024 End: 06-29-2024 Refill Ivette Grimes MD Work Phone: [facility] [place] Comment on above: Refill Request Start: 06-11-2024 ambulatory Ivette Grimes MD Work Phone: [facility] [place] Comment on above: Good Afternoon Start: 06-05-2024 ambulatory Fatuma vásquez PA-C Work Phone: Neurology Comment on above: Botox Start: 06-05-2024 E-mail encounter fro m caregiver Fatuma Beckford PA-C Work Phone: Neurology Start: 06-04-2024 Telephone encounter Fatuma perales PA-C Work Phone: Neurology Comment on above: Insurance Authorizat ion ([employer]) Start: 06-03-2024 End: 06-03-2024 ambulatory Ivette Grimes MD Work Phone: [facility] Comment on above: Left sided sciatica (Primary Dx); Screening for depression Start: 06-03-2024 End: 06-03-2024 Telemedicine consultation with patient Ivette Grimes MD Work Phone: [facility] Start: 05-12-2024 Refill Ivette Grimes MD Work Phone: [facility] [place] Comment on above: Refill Request Start: 05-01-2024 Telephone encounter Ivette Grimes MD Work Phone: [facility] Comment on above: medication not on cu rrent medication list Start: 04-20-2024 Refill Ivette Grimes MD Work Phone: [facility] [place] Comment on above: Refill Request Start: 04-19-2024 Refill [facility] Comment on above: Refill Request Start: 04-14-2024 Refill Grace morales APRN.CHEMISTRY LECTURER Work Phone: Psychiatry Comment on above: Refill Request Insurance Authorizat ion (Trulicity ) Start: 04-06-2024 Telephone encounter Fatuma perales PA-C Work Phone: Neurology Comment on above: Insurance Authorizat ion (Botox ) Start: 04-02-2024 End: 04-02-2024 Patient encounter procedure Fatuma Beckford PA-C Work Phone: Neurology Comment on above: Intractable chronic migraine without aura and without status migrainosus (Primary Dx) Start: 02-28-2024 Refill Stephanie Paz APRN.CHEMISTRY LECTURER Work Phone: [facility] [place] Comment on above: Refill Request Start: 02-04-2024 End: 02-04-2024 Emergency department patient [facility] Dr[facility] Iv[facility] Work Phone: Start: 01-22-2024 Refill Ivette Grimes MD Work Phone: [facility] Comment on above: Refill Request Start: 01-01-2024 Refill Grace morales APRN.CNP Work Phone: Psychiatry Comment on above: Refill Request Start: 12-27-2023 Telephone encounter Fatuma perales PA-C Work Phone: Neurology Comment on above: Insurance Authorizat ion Start: 12-26-2023 End: 12-26-2023 Patient encounter procedure Fatuma Robertscatherine PA-C Work Phone: Neurology Comment on above: Intractable chronic migraine without aura and without status migrainosus (Primary Dx) Start: 12-10-2023 End: 12-10-[address] Ivette Grimes Work Phone: [facility]-P[facility] Medicine [facility] Work Phone: Start: 12-09-2023 End: 12-09-2023 Patient encounter procedure Ivette Grimes MD Work Phone: [facility] Comment on above: Essential (primary) hypertension (Primary Dx); LETITIA (obstructive sleep apnea); Fatty liver; Vertigo; Anxiety Start: 12-09-2023 Telephone encounter Ivette Grimes MD Work Phone: [facility] Comment on above: Orders Start: 12-06-2023 End: 12-06-[address] Ivette Grimes Work Phone: [facility] Work Phone: Start: 12-06-2023 End: 12-06-[address] Ivette Grimes Work Phone: [facility]-Laboratory, OP Pavilion Start: 12-05-2023 ambulatory Ivette Grimes MD Work Phone: [facility] Comment on above: Labs Start: 10-27-2023 End: 10-27-2023 Emergency department patient visit Self Referred [facility]-Emergency Department Work Phone: Start: 10-14-2023 Refill Ivette Grimes MD Work Phone: [facility] [place] Comment on above: Refill Request Start: 09-23-2023 Refill Adriana Silke Gage Work Phone: Psychiatry Comment on above: Refill Request Start: 09-12-2023 End: 09-12-2023 Patient encounter procedure Self Referred [facility] Work Phone: Start: 09-09-2023 Refill Ivette Grimes MD Work Phone: [facility] [place] Comment on above: Refill Request Start: 08-21-2023 E-mail encounter fro m caregiver [facility] Start: 08-21-2023 Patient encounter procedure [facility] Provider Neurology Comment on above: Botox Appointment Start: 08-20-2023 Telephone encounter Ivette Grimes MD Work Phone: Family [facility] [place] Comment on above: Forms ([facility] preventat ashish care ) Start: 08-15-2023 End: 08-15-2023 Patient encounter procedure Self Referred [facility] Work Phone: Start: 08-07-2023 Non-patient / Non-visit Self Referre d [facility] Work Phone: Start: 08-06-2023 Non-patient / Non-visit Self Referre d [facility] Work Phone: Start: 08-06-2023 Non-patient / Non-visit Self Referre d [facility] Start: 08-05-2023 End: 08-07-2023 Evaluation and management of inpatient Dr. Ivette Grimes Work Phone: [facility]-Progressive Care Unit Work Phone: Start: 08-05-[address] Reji Grimes Work Phone: [facility] Work Phone: Start: 08-01-2023 End: 08-01-[address] Ivette Grimes Work Phone: [facility] Work Phone: Start: 08-01-2023 End: 08-01-2023 ambulatory Self Referred [facility] Work Phone: Start: 08-01-2023 End: 08-01-2023 [facility] Start: 08-01-[address] Gerald Grimes Work Phone: [facility]-Physical Therapy Work Phone: Start: 07-18-2023 End: 07-18-[address] Ivette Grimes Work Phone: [facility] Work Phone: Start: 07-18-2023 End: 07-18-[address] Ivette Grimes Work Phone: [facility] Work Phone: Start: 07-18-2023 End: 07-18-[address] [facility] Start: 07-05-2023 Refill Ivette Grimes MD Work Phone: [facility] Comment on above: Refill Request Start: 06-20-2023 End: 06-20-[address] [facility] Work Phone: Start: 06-19-2023 End: 06-20-2023 Patient encounter procedure Umesh Delgado Work Phone: Podiatry Comment on above: Plantar fasciitis (P rimary Dx); Calcaneal spur of right foot Start: 06-08-2023 Refill Grace morales APRNCATHI Work Phone: Psychiatry Comment on above: Refill Request Start: 06-07-2023 End: 06-07-2023 Patient encounter procedure Ivette Pirce MD Work Phone: Neurology Comment on above: Memory loss (Primary Dx); Attention and concentration deficit; Post concussion syndrome; Intractable migraine without aura and without status migrainosus; LETITIA (obstructive sleep apnea) Start: 06-06-2023 End: 06-06-[address] Ivette Grimes Work Phone: [facility] Work Phone: Start: 06-06-2023 End: 06-06-2023 Patient encounter procedure Ivette Grimes MD Work Phone: [facility] [place] Comment on above: Type 2 diabetes fred [...] encounter procedure Isiah Funes APRN.CNP Work Phone: [place] [facility] Comment on above: Foot pain, right (Pr imary Dx) Start: 05-29-2023 Telephone encounter Nicole vaca PA-C Work Phone: Urgent Care Comment on above: Pt requesting Boot Start: 05-28-2023 End: 05-28-2023 Subsequent hospital visit by physician Xr [facility] Work Phone: Radiology Comment on above: Pain of right heel [ M79.671] Start: 05-20-2023 End: 05-20-2023 Emergency department patient visit Dr. Ivette Grimes Work Phone: [facility]-Emergency Department Work Phone: Start: 05-17-2023 End: 05-17-2023 Patient encounter procedure Fatuma Beckford PA-C Work Phone: Neurology Comment on above: Intractable chronic migraine without aura and without status migrainosus (Primary Dx); Post concussive syndrome Start: 05-09-[address] Gerald Grimes Work Phone: [facility]-Physical Therapy Work Phone: Start: 05-07-2023 Refill Ivette Grimes MD Work Phone: [facility] Comment on above: Refill Request Start: 04-30-2023 End: 04-30-[address] Ivette Grimes Work Phone: [facility] Work Phone: Start: 04-16-2023 End: 04-16-[address] Ivette Grimes Work Phone: [facility] Work Phone: Start: 04-04-2023 Refill Ivette Grimes MD Work Phone: [facility] Comment on above: Refill Request Start: 04-02-2023 End: 04-02-[address] Ivette Grimes Work Phone: [facility] Work Phone: Start: 04-02-2023 End: 04-02-[address] Ivette Grimes Work Phone: [facility] Work Phone: Start: 04-02-2023 End: 04-02-[address] Ivette Grimes Work Phone: [facility]-Pulmonary Services/Neurology Work Phone: Start: 03-20-2023 Telephone encounter Fatuma perales PA-C Work Phone: Neurology Comment on above: Medication Authoriza tion (Botox renewal ) Start: 03-19-2023 End: 03-19-[address] Ivette Grimes Work Phone: [facility] Work Phone: Start: 03-12-2023 ambulatory Fatuma vásquez PA-C Work Phone: Neurology Comment on above: EEG Start: 03-09-2023 ambulatory Karen lópez LIBRARY CLERK [employer].CHEMISTRY LECTURER Work Phone: Neurology Comment on above: Botox Start: 03-05-[address] Gerald Grimes Work Phone: [facility]-Physical Therapy Start: 03-05-2023 End: 03-05-2023 Patient encounter [...] 03-04-2023 ambulatory Ivette Grimes MD Work Phone: [facility] Comment on above: Question regarding M ICROALBUMIN/CREATININE UR W RATIO (EXTERNAL) labs Start: 03-04-2023 E-mail encounter fro m caregiver Ivette Grimes MD Work Phone: [facility] [place] Start: 03-04-2023 Telephone encounter Ivette Grimes MD Work Phone: [facility] Comment on above: Medication change re quested Start: 03-04-2023 End: 03-04-[address] Ivette Grimes Work Phone: [facility]Laboratory, [facility] Start: 03-01-2023 Telephone encounter Ivette Price MD Work Phone: Neurology Comment on above: Appointment Start: 03-01-2023 End: 03-01-2023 Patient encounter procedure Ivette Price MD Work Phone: Neurology Comment on above: Post concussion synd roberta (Primary Dx); LETITIA (obstructive sleep apnea) Start: 02-28-2023 End: 02-28-2023 Patient encounter procedure Ivette Grimes MD Work Phone: [facility] Comment on above: Soft tissue mass (Pr imary Dx); Post concussive syndrome; Essential (primary) hypertension; Type 2 diabetes mellitus with microalbuminuria, with long-term current use of insulin (HCC); Headache, unspecified headache type; Myalgia Start: 02-28-2023 End: 02-28-[address] Ivette Grimes Work Phone: [facility] Start: 02-28-2023 End: 02-28-2023 Subsequent hospital visit by physician Mri [facility] (I-Stat/1.5t) Work Phone: Radiology Comment on above: Post concussion synd roberta [F07.81] Start: 02-27-2023 Telephone encounter Ivette Grimes MD Work Phone: [facility] Comment on above: Medication Request Start: 02-22-2023 Refill Ivette Grimes MD Work Phone: [facility] Comment on above: Refill Request Start: 02-15-2023 End: 02-15-2023 [facility] Grace Coronel APRN.CNP Work Phone: Psychiatry Comment on above: VAHE (generalized anx iety disorder) (Primary Dx); Recurrent major depressive disorder, in full remission (HCC) Start: 02-14-2023 End: 02-14-[address] Ivette Grimes Work Phone: [facility] Start: 02-14-[address] Gerald [facility] Start: 02-11-2023 Refill Ivette Grimes MD Work Phone: [facility] Comment on above: Refill Request Start: 02-09-2023 Telephone encounter Ivette Grimes MD Work Phone: [facility] Comment on above: Results Start: 02-08-2023 End: 02-08-[address] Ivette Grimes Work Phone: [facility] Work Phone: Start: 02-08-2023 End: 02-08-[address] Ivette Grimes Work Phone: [facility]-Ultrasound, [facility] Start: 01-31-2023 Telephone encounter Ivette Grimes MD Work Phone: [facility] Comment on above: Orders Start: 01-31-2023 End: 01-31-[address] Ivette Grimes Work Phone: [facility] Start: 01-31-2023 End: 01-31-2023 Patient encounter procedure Ivette Grimes MD Work Phone: [facility] Comment on above: Post concussive synd roberta (Primary Dx); Headache, unspecified headache type; Injury of neck, subsequent encounter Start: 01-24-2023 End: 01-24-2023 ambulatory ELLE RASHEED Facility:[facility] Start: 01-24-2023 End: 01-24-2023 Patient encounter procedure Elle Rasheed MD Work Phone: [facility] Comment on above: Chronic left shoulde r pain (Primary Dx); Adhesive capsulitis of left shoulder; Neuropathic pain; Primary osteoarthritis of left shoulder; Myofascial pain; Lumbar spondylosis Start: 01-22-2023 End: 01-22-2023 Patient encounter procedure Karen Bansal APRN.CHEMISTRY LECTURER Work Phone: Neurology Comment on above: Intractable chronic migraine without aura and without status migrainosus (Primary Dx) Start: 01-17-2023 End: 01-17-[address] Ivette Grimes Work Phone: [facility] Work Phone: Start: 01-17-2023 End: 01-17-[address] Iv[facility] Start: 01-17-2023 End: 01-17-2023 Patient encounter procedure Ivette Grimes MD Work Phone: [facility] [place] Comment on above: Post concussive synd roberta (Primary Dx); Headache, unspecified headache type; Injury of neck, subsequent encounter Start: 01-17-2023 End: 01-17-[address] Ivette Grimes Work Phone: [facility] Start: 01-09-2023 Refill Ivette Grimes MD Work Phone: [facility] Comment on above: Refill Request Start: 01-08-2023 Telephone encounter Ivette Grimes MD Work Phone: [facility] Comment on above: Insurance Authorizat ion (Trulicity ) Start: 01-04-2023 End: 01-04-2023 Patient encounter procedure Ivette Grimes MD Work Phone: [facility] Comment on above: Post concussive synd roberta (Primary Dx); Headache, unspecified headache type Start: 01-03-2023 End: 01-03-[address] Ivette Grimes Work Phone: [facility] Start: 01-02-2023 End: 01-02-2023 ambulatory [facility] Facility:[facility] Start: 01-01-2023 Telephone encounter Ivette Grimes MD Work Phone: [facility] [place] Comment on above: Patient Update Start: 12-28-2022 End: 12-28-[address] Ivette Grimes Work Phone: [facility] Start: 12-26-2022 End: 12-26-2022 Patient encounter procedure Ivette Grimes MD Work Phone: [facility] [place] Comment on above: Post concussion synd roberta (Primary Dx); Essential (primary) hypertension Refill Request Start: 12-24-2022 Refill Karennu lópez APRN.CNP Work Phone: Neurology Comment on above: Refill Request MRI'S need prior aut horization with workman comp Start: 12-20-2022 End: 12-20-[address] Ivette Grimes Work Phone: [facility] Start: 12-14-2022 End: 12-14-2022 Patient encounter procedure Ivette Grimes MD Work Phone: [facility] Comment on above: Post concussion synd roberta (Primary Dx); Essential (primary) hypertension; Microalbuminuria; Type 2 diabetes mellitus without complication, with long-term current use of insulin (HCC) Start: 12-11-2022 Refill Ivette Grimes MD Work Phone: [facility] Comment on above: Refill Request Mri Start: 12-07-2022 End: 12-07-2022 Patient encounter procedure Ivette Price MD Work Phone: Neurology Comment on above: Post concussion synd roberta (Primary Dx); Intractable acute post-traumatic headache; Dizziness; Cervicalgia; History of migraine; LETITIA (obstructive sleep apnea) Start: 12-07-2022 End: 12-07-2022 Patient encounter procedure Ivette Grimes MD Work Phone: [facility] Comment on above: Headache, unspecifie d headache type (Primary Dx); Concussion with loss of consciousness, initial encounter Start: 12-06-2022 End: 12-06-[address] Ivette Grimes Work Phone: [facility] Start: 12-06-2022 End: 12-06-[address] Ivette Grimes Work Phone: [facility] Start: 12-04-2022 Telephone encounter Ivette Grimes MD Work Phone: [facility] Comment on above: Hank requesting records Start: 12-03-2022 End: 12-03-2022 Emergency department patient visit Dr. Ivette Grimes Work Phone: [facility]-Emergency Department Start: 12-03-2022 Telephone encounter Ivette Grimes MD Work Phone: [facility] Comment on above: Patient Update Start: 11-30-2022 End: 11-30-2022 ambulatory Ivette Grimes MD Work Phone: [facility] Comment on above: Headache, unspecifie d headache type (Primary Dx); Concussion with loss of consciousness, initial encounter Start: 11-30-2022 End: 11-30-2022 Telemedicine consultation with patient Ivette Grimes MD Work Phone: [facility] Start: 11-29-2022 Telephone encounter Elle Rasheed MD Work Phone: [facility] [place] Comment on above: Patient Question ( john paul appointment on 12/05/22) Start: 11-27-2022 End: 11-27-2022 Emergency department patient visit Dr. Ivette Grimes Work Phone: [facility]Emergency Department Start: 11-27-2022 End: 11-27-[address] Ivette Grimes Work Phone: [facility] Comment on above: Worst headache of li fe (Primary Dx); Concussion with loss of consciousness, initial encounter Start: 11-27-[address] Gerald [facility] Start: 11-24-2022 End: 11-24-2022 Emergency department patient visit Dr. Ivette Grimes Work Phone: [facility]Emergency [facility] Start: 11-23-2022 Refill Ivette Grimes MD Work Phone: [facility] Comment on above: Refill Request Start: 11-22-[address] Gerald Grimes [facility] Start: 11-22-2022 End: 11-22-[address] Ivette Grimes Work Phone: [facility] Start: 11-20-2022 Orders Only Elle Rasheed MD Work Phone: [facility] [place] Comment on above: Chronic left shoulde r pain (Primary Dx); Adhesive capsulitis of left shoulder Start: 11-15-2022 Refill Ivette Grimes MD Work Phone: [facility] [place] Comment on above: Refill Request Start: 11-08-2022 End: 11-08-2022 ambulatory ADELINA MARINELLI Facility:[facility] Start: 11-08-2022 Telephone encounter Elle Rasheed MD Work Phone: [facility] Comment on above: Injections Start: 11-08-2022 End: 11-08-2022 Patient encounter procedure Adelina Marinelli LIBRARY CLERK TALKING BOOKS.CHEMISTRY LECTURER Work Phone: [facility] Comment on above: Chronic left shoulde r pain (Primary Dx); Adhesive capsulitis of left shoulder; Neuropathic pain; Myofascial pain Start: 11-08-2022 End: 11-08-[address] Ivette Grimes Work Phone: [facility] Start: 10-23-2022 End: 10-23-[address] Ivette Grimes Work Phone: [facility] Start: 10-16-2022 End: 10-16-[address] Ivette Grimes Work Phone: [facility] Start: 10-16-[address] Gerald Grimes Work Phone: [facility] Start: 10-15-2022 End: 10-15-[address] Ivette Grimes Work Phone: [facility] Work Phone: Start: 10-15-2022 End: 10-15-[address] Ivette Grimes Work Phone: [facility] Start: 10-12-2022 End: 10-12-2022 Distance Health Grace Coronel LIBRARY CLERK TALKING BOOKS.CHEMISTRY LECTURER Work Phone: Psychiatry Comment on above: VAHE (generalized anx iety disorder) (Primary Dx); Major depressive disorder, recurrent episode, moderate (HCC) Start: 10-10-2022 ambulatory [facility] Neurology Comment on above: Botox Start: 10-10-2022 E-mail encounter escobar cedeno caregiver [facility] Provider [facility] Start: 10-06-2022 Refill Tara alcantar LIBRARY CLERK TALKING BOOKS.CHEMISTRY LECTURER Work Phone: Neurology Comment on above: Refill Request Start: 10-05-2022 Refill Ivette Grimes MD Work Phone: [facility] Comment on above: Refill Request Start: 10-02-2022 Telephone encounter Adelina lazaro LIBRARY CLERK TALKING BOOKS.CHEMISTRY LECTURER Work Phone: [facility] Comment on above: Appointment; Patient Question Start: 10-02-2022 End: 10-02-[address] Ivette Grimes Work Phone: [facility] Start: 09-19-2022 Refill Ivette Grimes MD Work Phone: [facility] Comment on above: Refill Request Start: 09-13-2022 End: 09-13-[address] Ivette Grimes Work Phone: [facility] Start: 09-13-[address] [facility] Start: 09-12-2022 ambulatory Ivette Grimes MD Work Phone: [facility] Start: 09-12-2022 Chart abstracting Rivka Wilson Work Phone: Adult Psychology Comment on above: Behavioral Health So cial Work Start: 09-12-2022 Follow-up encounter Ivette Grimes MD Work Phone: [facility] Comment on above: Follow up (couldn t reply to other message) Start: 09-06-2022 End: 09-06-2022 Refill Ivette Grimes MD Work Phone: [facility] Comment on above: Refill Request Start: 09-06-2022 End: 09-06-[address] Ivette Grimes Work Phone: [facility] Start: 09-04-2022 ambulatory Ivette Grimes MD Work Phone: [facility] Comment on above: Migraine/botox quest ion Start: 09-04-2022 End: 09-04-2022 Patient encounter procedure Ivette Grimes MD Work Phone: [facility] Comment on above: Lightheadedness (Carolyn alyssa Dx); Essential (primary) hypertension; Prolonged Q-T interval on ECG; Type 2 diabetes mellitus with microalbuminuria, with long-term current use of insulin (HCC); Fatty liver; LETITIA (obstructive sleep apnea) Start: 09-04-[address] Gerald Grimes Work Phone: [facility] Start: 09-03-2022 End: 09-03-2022 ambulatory Ivette Grimes MD Work Phone: [facility] Comment on above: Malaise (Primary Dx) Start: 09-03-2022 End: 09-03-2022 Telemedicine consultation with patient Ivette Grimes MD Work Phone: [facility] Start: 09-03-2022 E-mail encounter fro m caregiver [facility] Provider [facility] Start: 09-03-2022 Patient encounter procedure [facility] Neu[facility] Comment on above: Botox Appointment Start: 08-30-2022 Non-patient / Non-visit Dr. Regina Grimes Work Phone: [facility] Start: 08-30-2022 End: 08-30-[address] Ivette Grimes Work Phone: [facility] Work Phone: Start: 08-30-2022 End: 08-30-[address] Ivette Grimes Work Phone: [facility] Start: 08-29-2022 End: 08-29-[address] Ivette Grimes Work Phone: [facility] Work Phone: Start: 08-29-2022 End: 08-29-[address] Ivette Grimes Work Phone: [facility] Start: 08-27-2022 ambulatory Ivette Grimes MD Work Phone: [facility] Comment on above: Quick question Start: 08-21-2022 Telephone encounter Karen renee LIBRARY CLERK TALKING BOOKS.CHEMISTRY LECTURER Work Phone: Neurology Comment on above: Medication Authoriza tion (Botox Approved) Start: 08-21-2022 End: 08-21-[address] Ivette Grimes Work Phone: [facility] Start: 08-16-2022 End: 08-16-[address] Ivette Grimes Work Phone: [facility] Start: 08-16-[address] Gerald Grimes Work Phone: [facility] Start: 08-10-2022 End: 08-10-[address] Ivette Grimes Work Phone: [facility] Work Phone: Start: 08-10-2022 End: 08-10-[address] Ivette Grimes Work Phone: [facility] Start: 08-08-2022 Chart abstracting Ivette Martínez MD Work Phone: [facility] Start: 08-08-2022 Telephone encounter Adelina lazaro LIBRARY CLERK TALKING BOOKS.CHEMISTRY LECTURER Work Phone: [facility] Comment on above: Patient Update Start: 08-08-2022 End: 08-08-[address] Ivette Grimes Work Phone: [facility] Work Phone: Start: 08-08-2022 End: 08-08-[address] Ivette Grimes Work Phone: [facility] Start: 08-07-[address] Gerald Grimes Work Phone: [facility] Start: 08-07-2022 End: 08-07-[address] Ivette Grimes Work Phone: [facility] Start: 08-06-2022 ambulatory Ivette Grimes MD Work Phone: [facility] Comment on above: Labs Start: 08-02-2022 ambulatory Karen lópez APRN.CHEMISTRY LECTURER Work Phone: Neurology Comment on above: Migraines Start: 08-02-2022 End: 08-02-[address] Ivette Grimes Work Phone: [facility] Start: 08-02-2022 End: 08-02-2022 Patient encounter procedure Ivette Grimes MD Work Phone: [facility] Comment on above: Type 2 diabetes fred itus with microalbuminuria, with long-term current use of insulin (HCC) (Primary Dx); Fatty liver; LETITIA (obstructive sleep apnea); Microalbuminuria; Lumbar disc disorder; Prolonged Q-T interval on ECG; Fatigue, unspecified type Start: 08-01-2022 ambulatory Ivette Grimes MD Work Phone: [facility] Comment on above: Return Checker Start: 08-01-2022 Telephone encounter Karen renee APRN.CHEMISTRY LECTURER Work Phone: Neurology Comment on above: Medication Authoriza tion (Botox referral) Start: 07-24-2022 End: 07-24-[address] Ivette Grimes Work Phone: [facility] Start: 07-24-2022 End: 07-24-[address] Ivette Grimes Work Phone: [facility] Work Phone: Start: 07-24-2022 End: 07-24-[address] Ivette Grimes Work Phone: [facility] Start: 07-23-2022 Refill Ivette Grimes MD Work Phone: [facility] Comment on above: Refill Request Start: 07-19-2022 Telephone encounter Elle Rasheed MD Work Phone: [facility] Comment on above: Patient Update (Inje ction questions ) Start: 07-19-2022 End: 07-19-2022 Patient encounter procedure Karen Bansal APRN.CHEMISTRY LECTURER Work Phone: Neurology Comment on above: Intractable chronic migraine without aura and without status migrainosus (Primary Dx); Mixed migraine and muscle contraction headache Start: 07-19-2022 End: 07-19-2022 ambulatory ADELINA ALBERTOFIELD Facility:[facility] Start: 07-10-2022 Refill Krystle Barahona on PA-C Work Phone: [facility] Comment on above: Refill Request Start: 07-10-2022 End: 07-10-[address] Ivette Grimes Work Phone: [facility] Start: 07-03-2022 ambulatory Tara alcantar APRN.CHEMISTRY LECTURER Work Phone: Neurology Comment on above: Medication Question Start: 06-28-2022 End: 06-28-[address] Ivette Grimes Work Phone: [facility] Start: 06-22-2022 Refill Ivette Grimes MD Work Phone: [facility] Comment on above: Refill Request Start: 06-07-2022 End: 06-07-2022 Patient encounter procedure Tara Gillette APRN.CHEMISTRY LECTURER Work Phone: Neurology Comment on above: Intractable migraine without aura and without status migrainosus (Primary Dx); Medication overuse headache; LETITIA (obstructive sleep apnea); Class 3 severe obesity with body mass index (BMI) of 45.0 to 49.9 in adult, unspecified obesity type, unspecified whether serious comorbidity present (HCC) Start: 06-07-2022 Telephone encounter Tara Herndon APRN.CHEMISTRY LECTURER Work Phone: Neurology Comment on above: Orders Start: 06-05-2022 ambulatory Ivette guzman MD Work Phone: Neurology Comment on above: Labs Start: 06-05-2022 E-mail encounter fro m caregiver Ivette Grimes MD Work Phone: [facility] Start: 06-05-[address] Luz Grimes Work Phone: [facility] Start: 06-04-2022 End: 06-04-[address] Ivette Grimes Work Phone: [facility] Start: 05-29-2022 Telephone encounter Tara Herndon APRN.CHEMISTRY LECTURER Work Phone: Neurology Comment on above: Appointment Start: 05-29-2022 End: 05-29-[address] Ivette Grimes Work Phone: [facility] Start: 05-24-2022 End: 05-24-2022 ambulatory ADELINA MARINELLI Facility:[facility] Start: 05-24-2022 End: 05-24-2022 Patient encounter procedure Adelina Marinelli LIBRARY CLERK TALKING BOOKS.CHEMISTRY LECTURER Work Phone: [facility] Comment on above: Chronic left shoulde r pain (Primary Dx); Adhesive capsulitis of left shoulder; Primary osteoarthritis of left shoulder; Myofascial pain Start: 05-14-2022 End: 05-14-[address] Ivette Grimes Work Phone: [facility] Start: 05-11-2022 Telephone encounter Elle Rasheed MD Work Phone: [facility] Comment on above: Procedure Follow Up Start: 05-10-2022 End: 05-10-2022 ambulatory ELLE RASHEED Facility:[facility] Start: 05-10-2022 End: 05-10-2022 ambulatory Elle Rasheed MD Work Phone: [facility] Comment on above: Procedure Start: 05-10-2022 End: 05-10-2022 Patient encounter procedure Elle Rasheed MD Work Phone: [facility] Start: 05-08-2022 ambulatory Ivette Grimes MD Work Phone: [facility] Start: 05-08-2022 Follow-up encounter Ivette Grimes MD Work Phone: [facility] Comment on above: Follow up from last appointment Start: 05-04-2022 End: 05-04-[address] 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 Ivette Grimes Work Phone: [facility] Start: 04-19-2022 ambulatory Ivette Grimes MD Work Phone: [facility] Comment on above: Lyrica Start: 04-17-2022 End: 04-17-[address] Ivette Grimes Work Phone: [facility] Start: 04-16-2022 Refill Ivette Grimes MD Work Phone: [facility] Comment on above: Refill Request [...] 04-05-2022 Refill Ivette Grimes MD Work Phone: [facility] Comment on above: Refill Request Start: 04-03-2022 End: 04-03-[address] Ivette Grimes Work Phone: [facility] Start: 03-30-2022 Refill Ivette Grimes MD Work Phone: [facility] Comment on above: Refill Request Start: 03-29-2022 Telephone encounter Elle Rasheed MD Work Phone: [facility] Comment on above: Injections Start: 03-29-2022 End: 03-29-2022 ambulatory ELLE RASHEED Facility:[facility] Start: 03-29-2022 End: 03-29-2022 Patient encounter procedure Elle Rasheed MD Work Phone: [facility] Comment on above: Myofascial pain (Carolyn alyssa Dx); Chronic left shoulder pain; Neuropathic pain; Adhesive capsulitis of left shoulder; Primary osteoarthritis of left shoulder Start: 03-16-2022 Refill Ivette Grimes MD Work Phone: [facility] Comment on above: Refill Request Start: 03-03-2022 Refill M Glen Barahona on PA-C Work Phone: [facility] [place] Comment on above: Refill Request Start: 02-28-2022 End: 02-28-2022 Patient encounter procedure Ivette Grimes MD Work Phone: [facility] [place] Comment on above: Upper back pain (Carolyn alyssa Dx); Acute midline low back pain without sciatica; Type 2 diabetes mellitus with microalbuminuria, with long-term current use of insulin (HCC); LETITIA (obstructive sleep apnea); Lumbar disc disorder; Elevated BP without diagnosis of hypertension Start: 02-27-2022 ambulatory Ivette Grimes MD Work Phone: [facility] Comment on above: ER Start: 02-23-2022 Refill Ivette Grimes MD Work Phone: [facility] Comment on above: Refill Request Start: 02-19-2022 E-mail encounter fro m caregiver Ivette Price Jr., MD Work Phone: [facility] Start: 02-19-2022 Patient encounter procedure Ivette Price MD Work Phone: Neurology Comment on above: Request an Appointme nt Start: 02-08-2022 Chart abstracting Ivette Martínez MD Work Phone: [facility] Start: 02-07-2022 ambulatory Ivette Grimes MD Work Phone: [facility] Comment on above: Lab work Start: 02-07-2022 E-mail encounter fro m caregiver Ivette Grimes MD Work Phone: [facility] Start: 02-07-2022 Telephone encounter Ivtete Grimes MD Work Phone: [facility] [place] Comment on above: Results Start: 02-07-2022 End: 02-07-[address] Ivette Grimes Work Phone: [facility] Start: 02-06-[address] Gerald Grimes Work Phone: [facility] Start: 02-06-2022 End: 02-06-[address] Ivette Grimes Work Phone: [facility] Start: 02-05-2022 ambulatory Ivette Grimes MD Work Phone: [facility] Comment on above: Lab work Start: 01-29-2022 Telephone encounter Elle Rasheed MD Work Phone: [facility] Comment on above: New Patient Start: 01-23-2022 End: 01-23-[address] Ivette Grimse Work Phone: [facility] Start: 01-09-2022 End: 01-09-[address] Ivette Grimes Work Phone: [facility] Start: 01-09-2022 Non-patient / Non-visit Dr. Regina Grimes Work Phone: [facility] Start: 01-09-2022 End: 01-09-[address] Ivette Grimes Work Phone: [facility] Start: 01-01-2022 End: 01-01-[address] Ivette Grimes Work Phone: [facility] Start: 12-26-2021 End: 12-26-[address] Ivette Grimes Work Phone: [facility] Start: 11-29-2021 End: 11-29-[address] Ivette Grimes Work Phone: [facility] Start: 11-23-2021 End: 11-23-[address] Ivette Grimes Work Phone: [facility] Start: 11-21-2021 End: 11-21-[address] Ivette Grimes Work Phone: [facility] Start: 11-09-2021 End: 11-09-[address] Ivette Grimes Work Phone: [facility] Start: 10-24-2021 End: 10-24-[address] Ivette Grimes Work Phone: [facility] Start: 12-06-2012 End: 02-22-2014 Patient encounter status Stephanie Paz LIBRARY CLERK TALKING BOOKSStephanyCHEMISTRY LECTURER Work Phone: [facility] Start: 01-23-2010 End: 02-22-2014 Patient encounter status Stephanie Paz LIBRARY CLERK TALKING BOOKS.CHEMISTRY LECTURER Work Phone: [facility] Procedures Date Procedure Procedure Detail [...] 06-23-2025 Procedure on shoulder joint Dr. Ivette Griems MD Work Phone: Start: 06-09-2025 Hemoglobin A1c/Hemoglobin.total in Blood [facility] Start: 06-09-[address] (FOR REMOTE [facility] USE) [facility] Provider Start: 06-05-2025 Lactate dehydrogenas [...] Visit Annual PCP Team Chronic Disease Visit [facility] Start: 06-07-2026 Annual PCP Team Chronic Disease Visit Annual PCP Team Chronic Disease Visit [facility] Start: 05-03-2026 Influenza vaccination Influenza Vaccine (#1) [place] [facility] Comment on above: Postponed from 07/05/2025 (Declined at t his time) Start: 03-02-2026 Annual PCP Team Chronic Disease Visit Annual PCP Team Chronic Disease Visit [facility] Start: 02-04-2026 Glaucoma screening Dilated Retinal Exam [facility] Start: 01-22-2026 Annual PCP Team Chronic Disease Visit Annual PCP Team Chronic Disease Visit [facility] Start: 01-22-2026 BP Controlled (<130/80) BP Controlled (<130/80) [facility] Start: 01-22-2026 Depression Screening Depression Screening [facility] Start: 12-11-2025 Annual PCP Team Chronic Disease Visit Annual PCP Team Chronic Disease Visit [facility] Start: 12-10-2025 Hemoglobin A1c measurement HbA1C [facility] Start: 10-19-2025 Annual PCP Team Chronic Disease Visit Annual PCP Team Chronic Disease Visit [facility] Start: 09-24-2025 Annual PCP Team Chronic Disease Visit Annual PCP Team Chronic Disease Visit [facility] Start: 08-26-2025 End: 08-26-2025 ambulatory 08/26/2025 9:40 AM EDT [facility] [address] [place], [place] [id number] Ivette Grimes MD [address] [place], [place] [id number] Well check [facility] Comment on above: Well check Start: 08-05-2025 Annual PCP Team Chronic Disease Visit Annual PCP Team Chronic Disease Visit [facility] Start: 08-05-2025 BP Controlled (<130/80) BP Controlled (<130/80) [facility] Start: 08-05-2025 Covid-19 Vaccine () Covid-19 Vaccine () [facility] Comment on above: Postponed from 07/05/2024 (Declined at t his time) Start: 08-05-2025 Diabetic foot examination Diabetic Foot Exam [facility] Start: 08-05-2025 Pneumococcal vaccination Pneumococcal Vaccine (2 of 2 - PCV) [facility] Comment on above: Postponed from 07/28/2020 (Declined at t his time) Start: 08-05-2025 Urine microalbumin profile DTaP,Tdap,Td Vaccine (2 - Td or Tdap) [facility] Comment on above: Postponed from 06/01/2023 (Declined at t his time) Start: 08-04-2025 End: 08-04-2025 Patient encounter procedure 08/04/2025 4:30 PM EDT Office Visit Neurology [address] [facility] [place] [address] Fatuma Beckford PA-C [address] [facility] [place] [address] botox Neurology Comment on above: botox Start: 08-03-2025 End: 08-03-2025 Patient encounter procedure 08/03/2025 2:20 PM EDT Office Visit OB/Gynecology [address] [place] [address] Galina Camacho MD [address] [place] [address] annual with pap OB/Gynecology Comment on above: annual with pap Start: 07-31-2025 Hemoglobin A1c measurement HbA1C [facility] Start: 07-19-2025 End: 07-19-2025 Patient encounter procedure 07/19/2025 11:00 AM EDT Office Visit [facility] [place] [address] [place] [address] Ivette Grimes MD [address] [facility] [place] [address] 07-07 ICU Hospital follow up [facility] Comment on above: 07-07 ICU Hospital follow up [facility] Start: 07-08-2025 End: 10-07-2025 Microalbumin/Creatinine [Mass Ratio] in Urine ALBUMIN/CREATININE RATIO, URINE Lab Routine Type 2 diabetes mellitus with microalbuminuria, with long-term current use of insulin (HCC) Expected: 07/08/2025, Expires: 10/07/2025 [facility] Comment on above: Expected: 07/08/2025, Expires: Start: 07-07-2025 Patient discharge [facility] Start: 07-07-2025 Care planning and problem solving actions [facility] Start: 07-06-2025 [facility] Start: 07-06-2025 Serum inorganic phosphate measurement [facility] Start: 07-06-2025 Application of intermittent pneumatic compression device [facility] Start: 07-05-2025 Following clinical pathway protocol [facility] Start: 07-05-2025 Assessment of risk of venous thromboembolism [facility] Start: 07-05-2025 Care regimes management [facility] Start: 07-05-2025 Consultation [facility] Start: 07-05-2025 Continuous pulse oximetry [facility] Start: 07-05-2025 Elevation of head of bed [facility] Start: 07-05-2025 Fall prevention [facility] Start: 07-05-2025 Incentive spirometry [facility] Start: 07-05-2025 Inhalation therapy procedure [facility] Start: 07-05-2025 Insertion of catheter into peripheral vein [facility] Start: 07-05-2025 Introduction of urinary catheter [facility] Start: 07-05-2025 Lab findings surveillance [facility] Start: 07-05-2025 Measuring intake and output [facility] Start: 07-05-2025 Methicillin resistant Staphylococcus aureus screening test [facility] Start: 07-05-2025 Nil by mouth [facility] Start: 07-05-[address] [facility] Start: 07-05-2025 Oxygen therapy [facility] Start: 07-05-2025 Patient referral to dietitian [facility] Start: 07-05-2025 Providing care according to standard [facility] Start: 07-05-2025 Provision of activity privileges [facility] Start: 07-05-2025 Referral to service [facility] Start: 07-05-2025 Vital signs measurements [facility] Start: 07-05-2025 End: 07-05-2025 [facility] Start: 07-05-2025 Dual pressure spontaneous ventilation support [facility] Start: 07-05-2025 Measurement of occult blood in stool specimen using immunoassay [facility] Start: 07-05-2025 Verification routine [facility] Start: 07-05-2025 Admission procedure [facility] Start: 07-05-2025 [facility] Start: 07-05-2025 End: 07-06-2025 [facility] Start: 07-05-2025 Bacteria identified in Blood by Culture Blood Culture [facility] Start: 07-05-2025 Bacteria identified in Urine by Culture Urine Culture [facility] Start: 07-05-2025 Blood culture Blood Culture [facility] Start: 07-05-2025 Influenza vaccination Influenza Vaccine (#1) [facility] Start: 07-05-2025 End: 10-04-2025 Urinalysis complete panel - Urine URINALYSIS, WITH MICROSCOPIC Lab Routine Flank pain Proteinuria, unspecified type Expected: 07/05/2025, Expires: 10/04/2025 [facility] Comment on above: Expected: 07/05/2025, Expires: Start: 07-04-2025 Hepatitis B screening Urine Albumin:Creatinine Ratio [facility] Start: 07-04-2025 Hepatitis B surface antibody level LDL Cholesterol [facility] Start: 07-03-2025 Annual PCP Team Chronic Disease Visit Annual PCP Team Chronic Disease Visit [facility] Start: 06-23-2025 Anes arthrs humeral h/n strnclav & shoulder nos [facility] Start: 06-23-2025 Anterior decompression of shoulder joint [facility] Start: 06-23-2025 Arthroscopy shoulder surg debridement limited [facility] Start: 06-23-2025 Arthroscopy shoulder w/coracoacrm ligmnt release BRY ARTHRS SRG DECOMPRESSION [facility] Start: 06-23-2025 Injection aa&/strd brachial plexus [facility] Start: 06-23-2025 Patient discharge [facility] Start: 06-23-2025 Application of ice collar, cap or bag [facility] Start: 06-23-2025 Assessment of risk of venous thromboembolism [facility] Start: 06-23-2025 Catheterization of vein [facility] Start: 06-23-2025 Continuous positive airway pressure ventilation treatment [facility] Start: 06-23-2025 Following clinical pathway protocol [facility] Start: 06-23-2025 Incentive spirometry [facility] Start: 06-23-2025 Introduction of urinary catheter [facility] Start: 06-23-2025 Vital signs measurements [facility] Start: 06-23-2025 [facility] Start: 06-10-2025 Electrocardiographic procedure [facility] Start: 06-07-2025 End: 09-06-2025 Cholesterol in LDL [Mass/volume] in Serum or Plasma LDL CHOLESTEROL DIR Lab Routine Type 2 diabetes mellitus with microalbuminuria, with long-term current use of insulin (HCC) Essential (primary) hypertension Expected: 06/07/2025, Expires: 09/06/2025 [facility] Comment on above: Expected: 06/07/2025, Expires: Start: 06-07-2025 End: 09-06-2025 Hemoglobin A1c in Blood HEMOGLOBIN A1C Lab Routine Type 2 diabetes mellitus with microalbuminuria, with long-term current use of insulin (HCC) Expected: 06/07/2025, Expires: 09/06/2025 [facility] Work Phone: Comment on above: Expected: 06/07/2025, Expires: Start: 06-03-2025 Annual PCP Team Chronic Disease Visit Annual PCP Team Chronic Disease Visit [facility] Start: 05-03-2025 Influenza vaccination Influenza Vaccine (#1) [facility] Comment on above: Postponed from 07/05/2024 (Declined at t his time) Start: 04-21-2025 End: 04-21-2025 Patient encounter procedure 04/21/2025 2:00 PM EDT Office Visit Neurology [address] [place] [address] Kristen Enriquez APRN.CHEMISTRY LECTURER [address] [place] [address] botox Neurology Comment on above: botox Start: 03-09-2025 End: 03-09-2025 Patient encounter procedure 03/09/2025 7:25 AM EDT [facility] Neurology [address] [place] [address] Amanda Arteaga, PA-C [address] [place] [address] consult botox injection for headache Neurology Comment on above: consult botox injection for headache Start: 01-22-2025 End: 04-23-2025 Basic metabolic 2000 panel - Serum or Plasma BASIC METABOLIC PANEL Lab Routine Essential (primary) hypertension Expected: 01/22/2025, Expires: 04/23/2025 [facility] Comment on above: Expected: 01/22/2025, Expires: Start: 01-22-2025 End: 04-23-2025 Hemoglobin A1c in Blood HEMOGLOBIN A1C Lab Routine Type 2 diabetes mellitus with microalbuminuria, with long-term current use of insulin (HCC) Expected: 01/22/2025, Expires: 04/23/2025 [facility] Work Phone: Comment on above: Expected: 01/22/2025, Expires: Start: 01-01-2025 Hemoglobin A1c measurement HbA1C [facility] Start: 12-26-2024 BP Controlled (<130/80) BP Controlled (<130/80) [facility] Start: 12-25-2024 End: 12-25-2024 Patient encounter procedure 12/25/2024 10:15 AM EST Office Visit OB/Gynecology [address] [place], [place] [id number] Karol Mancera APRN.CHEMISTRY LECTURER [address] [place], [place] [id number] annual OB/Gynecology Comment on above: annual Start: 12-17-2024 End: 12-17-2024 ambulatory 12/17/2024 9:40 AM EST [facility] Medicine [facility] [address] [place], [place] [id number] Ivette Grimes MD [address] [place], [place] [id number] General [facility] Medicine [facility] Comment on above: General Start: 12-11-2024 End: 03-12-2025 Comprehensive metabolic 2000 panel - Serum or Plasma COMPREHENSIVE METABOLIC PANEL Lab Routine Hypokalemia Expected: 12/11/2024, Expires: 03/12/2025 [facility] Comment on above: Expected: 12/11/2024, Expires: Start: 12-09-2024 End: 12-09-2024 Patient encounter procedure 12/09/2024 2:20 PM EST Office Visit OB/Gynecology [address] [place] [id number] Galina Camacho MD [address] [place] [id number] Check up OB/Gynecology Comment on above: Check up Start: 12-09-2024 Annual PCP Team Chronic Disease Visit Annual PCP Team Chronic Disease Visit [facility] Start: 12-09-2024 BP Controlled (<130/80) BP Controlled (<130/80) [facility] Start: 12-09-2024 Covid-19 Vaccine () Covid-19 Vaccine () [facility] Comment on above: Postponed from 07/05/2023 (Declined at t his time) Start: 12-09-2024 Depression Screening Depression Screening [facility] Start: 11-11-2024 [facility] Start: 11-06-2024 Annual PCP Team Chronic Disease Visit Annual PCP Team Chronic Disease Visit [facility] Start: 10-20-2024 End: 10-20-2024 Patient encounter procedure 10/20/2024 2:20 PM EST Office Visit OB/Gynecology [address] [place] [id number] Galina Camacho MD [address] [place] [place] [id number] Check up OB/Gynecology Comment on above: Check up Start: 09-13-2024 BP Controlled (<130/80) BP Controlled (<130/80) [facility] Start: 09-12-2024 Glaucoma screening Dilated Retinal Exam [facility] Start: 09-10-2024 End: 09-10-2024 Patient encounter procedure Neurology Comment on above: botox Start: 09-03-2024 End: 09-03-2024 Patient encounter procedure 09/03/2024 1:00 PM EDT Office Visit Neurology [address] [place] [address] [place] [id number] Fatuma Beckford PA-C [address] [facility], [place] [id number] botox Neurology Comment on above: botox Start: 08-05-2024 Depression Screening Depression Screening [facility] Comment on above: Postponed from 2000 (Declined at t his time) Start: 08-05-2024 End: 08-05-2024 Patient encounter procedure 08/05/2024 8:00 AM EDT Office Visit [facility] [address] [place], [place] [id number] Ivette Grimes MD [address] [place], [place] [phone] My health [facility] Comment on above: My health Start: 07-15-2024 Annual PCP Team Chronic Disease Visit Annual PCP Team Chronic Disease Visit [facility] Start: 07-05-2024 Covid-19 Vaccine ( season) Covid-19 Vaccine ( season) [facility] Start: 07-05-2024 Covid-19 Vaccine ( season) Covid-19 Vaccine ( season) [facility] Start: 07-05-2024 Influenza vaccination Influenza Vaccine (#1) [facility] Start: 07-03-2024 End: 10-02-2024 CBC W Auto Differential panel - Blood COMPLETE BLOOD COUNT AND DIFFERENTIAL Lab Routine Type 2 diabetes mellitus with microalbuminuria, with long-term current use of insulin (HCC) Expected: 07/03/2024, Expires: 10/02/2024 [facility] Work Phone: Comment on above: Expected: 07/03/2024, Expires: Start: 07-03-2024 End: 10-02-2024 Comprehensive metabolic 2000 panel - Serum or Plasma COMPREHENSIVE METABOLIC PANEL Lab Routine Type 2 diabetes mellitus with microalbuminuria, with long-term current use of insulin (HCC) Expected: 07/03/2024, Expires: 10/02/2024 [facility] Comment on above: Expected: 07/03/2024, Expires: Start: 07-03-2024 End: 10-02-2024 Hemoglobin A1c in Blood HEMOGLOBIN A1C Lab Routine Type 2 diabetes mellitus with microalbuminuria, with long-term current use of insulin (HCC) Expected: 07/03/2024, Expires: 10/02/2024 [facility] Comment on above: Expected: 07/03/2024, Expires: 4 Start: 07-03-2024 End: 10-02-2024 Lipid 1996 panel - Serum or Plasma LIPID PANEL BASIC Lab Routine Type 2 diabetes mellitus with microalbuminuria, with long-term current use of insulin (HCC) Expected: 07/03/2024, Expires: 10/02/2024 [facility] Comment on above: Expected: 07/03/2024, Expires: 4 Start: 07-03-2024 End: 10-02-2024 Microalbumin/Creatinine [Mass Ratio] in Urine ALBUMIN/CREATININE RATIO, URINE Lab Routine Type 2 diabetes mellitus with microalbuminuria, with long-term current use of insulin (HCC) Expected: 07/03/2024, Expires: 10/02/2024 [facility] Comment on above: Expected: 07/03/2024, Expires: Start: 06-06-2024 ANNUAL PCP TEAM CHRONIC DISEASE VISIT ANNUAL PCP TEAM CHRONIC DISEASE VISIT [facility] Start: 06-06-2024 COVID-19 VACCINE (4 - Moderna series) COVID-19 VACCINE (4 - Moderna series) [facility] Comment on above: Postponed from 12/13/2021 (Declined at t his time) Start: 06-06-2024 Diabetic foot examination Diabetic Foot Exam [facility] Start: 06-06-2024 [facility]album[facility] Comment on above: Postponed from 06/01/2023 (Declined at t his time) Start: 06-05-2024 Hemoglobin A1c measurement HbA1C [facility] Start: 05-17-2024 BP CONTROLLED (<130/80) BP CONTROLLED (<130/80) [facility] Start: 03-26-2024 End: 03-26-2024 Patient encounter procedure 03/26/2024 10:30 AM EDT Office Visit Neurology [address] [place] [address] Fatmua Beckford PA-C [address] [place] [address] botox 4 of 4 Neurology Comment on above: botox 4 of 4 Start: 03-05-2024 BP CONTROLLED (<130/80) BP CONTROLLED (<130/80) [facility] Start: 03-05-2024 PNEUMOCOCCAL (2 - PCV) PNEUMOCOCCAL (2 - PCV) [facility] Comment on above: Postponed from 07/28/2020 (Declined at t his time) Start: 03-05-2024 Pneumococcal vaccination [facility] Comment on above: Postponed from 07/28/2020 (Declined at t his time) Start: 03-04-2024 Hepatitis B screening URINE ALBUMIN:CREATININE RATIO [facility] Start: 02-29-2024 ANNUAL PCP TEAM CHRONIC DISEASE VISIT ANNUAL PCP TEAM CHRONIC DISEASE VISIT [facility] Start: 02-04-2024 Bacteria identified in Urine by Culture [facility] Start: 02-04-2024 [facility] Start: 02-04-2024 [facility] Start: 02-01-2024 ANNUAL PCP TEAM CHRONIC DISEASE VISIT ANNUAL PCP TEAM CHRONIC DISEASE VISIT [facility] Start: 01-18-2024 ANNUAL PCP TEAM CHRONIC DISEASE VISIT ANNUAL PCP TEAM CHRONIC DISEASE VISIT [facility] Start: 01-05-2024 ANNUAL PCP TEAM CHRONIC DISEASE VISIT ANNUAL PCP TEAM CHRONIC DISEASE VISIT [facility] Start: 12-26-2023 ANNUAL PCP TEAM CHRONIC DISEASE VISIT ANNUAL PCP TEAM CHRONIC DISEASE VISIT [facility] Start: 12-18-2023 HPV TESTING HPV TESTING [facility] Start: 12-18-2023 PAP TESTING PAP TESTING [facility] Start: 12-18-2023 Screening for malignant neoplasm of cervix [facility] Start: 12-14-2023 ANNUAL PCP TEAM CHRONIC DISEASE VISIT ANNUAL PCP TEAM CHRONIC DISEASE VISIT [facility] Start: 12-07-2023 ANNUAL PCP TEAM CHRONIC DISEASE VISIT ANNUAL PCP TEAM CHRONIC DISEASE VISIT [facility] Start: 12-07-2023 End: 02-06-2024 CBC W Auto Differential panel - Blood CBC + DIFF Lab Routine Type 2 diabetes mellitus with microalbuminuria, with long-term current use of insulin (HCC) Expected: 12/07/2023, Expires: 02/06/2024 [facility] Work Phone: Comment on above: Expected: 12/07/2023, Expires: Start: 12-07-2023 End: 02-06-2024 Comprehensive metabolic 2000 panel - Serum or Plasma COMP METABOLIC PANEL Lab Routine Type 2 diabetes mellitus with microalbuminuria, with long-term current use of insulin (HCC) Expected: 12/07/2023, Expires: 02/06/2024 [facility] Work Phone: Comment on above: Expected: 12/07/2023, Expires: Start: 12-07-2023 End: 02-06-2024 Hemoglobin A1c in Blood HGB A1C Lab Routine Type 2 diabetes mellitus with microalbuminuria, with long-term current use of insulin (HCC) Expected: 12/07/2023, Expires: 02/06/2024 [facility] Work Phone: Comment on above: Expected: 12/07/2023, Expires: Start: 12-07-2023 End: 02-06-2024 Lipid 1996 panel - Serum or Plasma LIPID PANEL BASIC Lab Routine Type 2 diabetes mellitus with microalbuminuria, with long-term current use of insulin (HCC) Expected: 12/07/2023, Expires: 02/06/2024 [facility] Work Phone: Comment on above: Expected: 12/07/2023, Expires: Start: 11-30-2023 ANNUAL PCP TEAM CHRONIC DISEASE VISIT ANNUAL PCP TEAM CHRONIC DISEASE VISIT [facility] Start: 11-27-2023 ANNUAL PCP TEAM CHRONIC DISEASE VISIT ANNUAL PCP TEAM CHRONIC DISEASE VISIT [facility] Start: 11-04-2023 Behavioral Health Screening Behavioral Health Screening [facility] Start: 11-04-2023 Depression Assessment Depression Assessment [facility] Start: 10-31-2023 BP CONTROLLED (<130/80) BP CONTROLLED (<130/80) [facility] Start: 10-27-2023 [facility] Start: 09-04-2023 ANNUAL PCP TEAM CHRONIC DISEASE VISIT ANNUAL PCP TEAM CHRONIC DISEASE VISIT [facility] Start: 09-04-2023 Hemoglobin A1c measurement HbA1C [facility] Start: 09-04-2023 Hemoglobin A1c/Hemoglobin.total in Blood HBA1C [facility] Start: 09-03-2023 ANNUAL PCP TEAM CHRONIC DISEASE VISIT ANNUAL PCP TEAM CHRONIC DISEASE VISIT [facility] Start: 08-10-2023 Mammography [facility] Start: 08-10-2023 Screening for malignant neoplasm of breast Mammogram Screening [facility] Start: 08-08-2023 Hepatitis B surface antibody level LDL CHOLESTEROL [facility] Start: 08-07-2023 Patient discharge [facility] Start: 08-06-[address] [facility] Start: 08-05-2023 End: 08-05-2023 [facility] Start: 08-05-2023 Following clinical pathway protocol [facility] Start: 08-05-2023 Assessment of risk of venous thromboembolism [facility] Start: 08-05-2023 Cardiac monitoring [facility] Start: 08-05-2023 Catheterization of vein [facility] Start: 08-05-2023 Continuous pulse oximetry [facility] Start: 08-05-2023 Elevation of head of bed [facility] Start: 08-05-2023 Exercises [facility] Start: 08-05-2023 Implementation of planned interventions [facility] Start: 08-05-2023 Insertion of catheter into peripheral vein [facility] Start: 08-05-2023 Measuring intake and output [facility] Start: 08-05-[address] [facility] Start: 08-05-2023 Oxygen therapy [facility] Start: 08-05-2023 Providing care according to standard [facility] Start: 08-05-2023 Referral to occupational therapist [facility] Start: 08-05-2023 Referral to service [facility] Start: 08-05-2023 Tobacco use cessation education [facility] Start: 08-05-2023 Vital signs measurements [facility] Start: 08-05-2023 Verification routine [facility] Start: 08-05-2023 Admission procedure [facility] Start: 08-05-2023 Oxygen therapy [facility] Start: 08-05-2023 [facility] Start: 08-05-2023 Inhalation therapy procedure [facility] Start: 08-05-2023 Patient referral to dietitian [facility] Start: 08-02-2023 3 comp foot exam completed DIABETIC FOOT EXAM [facility] Start: 08-02-2023 ANNUAL PCP TEAM CHRONIC DISEASE VISIT ANNUAL PCP TEAM CHRONIC DISEASE VISIT [facility] Start: 08-02-2023 Diabetic foot examination Diabetic Foot Exam [facility] Start: 07-05-2023 Covid-19 Vaccine () Covid-19 Vaccine () [facility] Start: 07-05-2023 Influenza vaccination [facility] Start: 06-07-2023 End: 08-07-2023 Cobalamin (Vitamin B12) [Mass/volume] in Serum or Plasma VITAMIN B12 BLOOD Lab Routine Memory loss Attention and concentration deficit Expected: 06/07/2023, Expires: 08/07/2023 [facility] Work Phone: Comment on above: Expected: 06/07/2023, Expires: 3 Start: 06-07-2023 End: 08-07-2023 Thyrotropin [Units/volume] in Serum or Plasma TSH BLD Lab Routine Memory loss Attention and concentration deficit Expected: 06/07/2023, Expires: 08/07/2023 [facility] Work Phone: Comment on above: Expected: 06/07/2023, Expires: Start: 06-07-2023 End: 08-07-2023 Thyroxine (T4) free [Mass/volume] in Serum or Plasma T4 FREE/FREE THYROX Lab Routine Memory loss Attention and concentration deficit Expected: 06/07/2023, Expires: 08/07/2023 [facility] Work Phone: Comment on above: Expected: 06/07/2023, Expires: 3 Start: 06-01-2023 Urine microalbumin profile [facility] Start: 05-01-2023 ANNUAL PCP TEAM CHRONIC DISEASE VISIT ANNUAL PCP TEAM CHRONIC DISEASE VISIT [facility] Start: 04-02-2023 [facility] Start: 03-29-2023 Adult depression screening assessment DEPRESSION SCREENING [facility] Start: 02-28-2023 End: 04-30-2023 ALBUMIN/CREAT RATIO RND UR ALBUMIN/CREAT RATIO RND UR Lab Routine Type 2 diabetes mellitus with microalbuminuria, with long-term current use of insulin (HCC) Expected: 02/28/2023, Expires: 04/30/2023 [facility] Work Phone: Comment on above: Expected: 02/28/2023, Expires: 3 Start: 02-28-2023 ANNUAL PCP TEAM CHRONIC DISEASE VISIT ANNUAL PCP TEAM CHRONIC DISEASE VISIT [facility] Start: 02-28-2023 End: 04-30-2023 Basic metabolic 2000 panel - Serum or Plasma BASIC METABOLIC PNL Lab Routine Myalgia Expected: 02/28/2023, Expires: 04/30/2023 [facility] Work Phone: Comment on above: Expected: 02/28/2023, Expires: 3 Start: 02-28-2023 End: 04-30-2023 CBC W Auto Differential panel - Blood CBC + DIFF Lab Routine Myalgia Expected: 02/28/2023, Expires: 04/30/2023 [facility] Work Phone: Comment on above: Expected: 02/28/2023, Expires: 3 Start: 02-28-2023 End: 04-30-2023 Hemoglobin A1c in Blood HGB A1C Lab Routine Type 2 diabetes mellitus with microalbuminuria, with long-term current use of insulin (HCC) Expected: 02/28/2023, Expires: 04/30/2023 [facility] Work Phone: Comment on above: Expected: 02/28/2023, Expires: 3 Start: 02-28-2023 End: 04-30-2023 Iron and Iron binding capacity panel - Serum or Plasma IRON + TIBC Lab Routine Myalgia Expected: 02/28/2023, Expires: 04/30/2023 [facility] Work Phone: Comment on above: Expected: 02/28/2023, Expires: 3 Start: 02-28-2023 End: 04-30-2023 Magnesium [Mass/volume] in Serum or Plasma MAGNESIUM BLD Lab Routine Myalgia Expected: 02/28/2023, Expires: 04/30/2023 [facility] Work Phone: Comment on above: Expected: 02/28/2023, Expires: 3 Start: 02-07-2023 Hepatitis B screening URINE ALBUMIN:CREATININE RATIO [facility] Start: 02-07-2023 Hepatitis B surface antibody level LDL CHOLESTEROL [facility] Start: 02-06-2023 Hemoglobin A1c/Hemoglobin.total in Blood HBA1C [facility] Start: 01-25-2023 ANNUAL PCP TEAM CHRONIC DISEASE VISIT ANNUAL PCP TEAM CHRONIC DISEASE VISIT [facility] Start: 11-04-2022 DEPRESSION ASSESSMENT DEPRESSION ASSESSMENT [facility] Start: 10-16-2022 End: 12-16-2022 Thyrotropin [Units/volume] in Serum or Plasma TSH BLD Lab Routine Lightheadedness Expected: 10/16/2022, Expires: 12/16/2022 [facility] Work Phone: Comment on above: Expected: 10/16/2022, Expires: 3 Start: 10-06-2022 Adult depression screening assessment DEPRESSION SCREENING [facility] Start: 10-05-2022 Glaucoma screening Dilated Retinal Exam [facility] Start: 10-05-2022 Hepatitis C antibody, confirmatory test DILATED RETINAL EXAM [facility] Start: 09-04-2022 End: 11-04-2022 Basic metabolic 2000 panel - Serum or Plasma BASIC METABOLIC PNL Lab Routine Lightheadedness Expected: 09/04/2022, Expires: 11/04/2022 [facility] Work Phone: Comment on above: Expected: 09/04/2022, Expires: 3 Start: 09-04-2022 End: 11-04-2022 CBC W Auto Differential panel - Blood CBC + DIFF Lab Routine Lightheadedness Expected: 09/04/2022, Expires: 11/04/2022 [facility] Work Phone: Comment on above: Expected: 09/04/2022, Expires: 3 Start: 08-16-2022 Patient referral [facility] Work Phone: Start: 08-09-2022 Hemoglobin A1c/Hemoglobin.total in Blood HBA1C [facility] Start: 08-02-2022 End: 10-02-2022 Hemoglobin A1c in Blood HGB A1C Lab Routine Type 2 diabetes mellitus with microalbuminuria, with long-term current use of insulin (HCC) Expected: 08/02/2022, Expires: 10/02/2022 [facility] Work Phone: Comment on above: Expected: 08/02/2022, Expires: 2 Start: 08-02-2022 End: 10-02-2022 Lipid 1996 panel - Serum or Plasma LIPID PANEL BASIC Lab Routine Type 2 diabetes mellitus with microalbuminuria, with long-term current use of insulin ([facility]) Expected: 08/02/2022, Expires: 10/02/2022 [facility] Work Phone: Comment on above: Expected: 08/02/2022, Expires: 2 Start: 08-02-2022 End: 10-02-2022 Thyrotropin [Units/volume] in Serum or Plasma TSH BLD Lab Routine Fatigue, unspecified type Expected: 08/02/2022, Expires: 10/02/2022 [facility] Work Phone: Comment on above: Expected: 08/02/2022, Expires: 2 Start: 07-20-2022 3 comp foot exam completed DIABETIC FOOT EXAM [facility] Start: 07-05-2022 Influenza vaccination INFLUENZA (#1) [facility] Start: 06-28-2022 Hepatitis B surface antibody level LDL CHOLESTEROL [facility] Start: 2022 Mammography MAMMOGRAM [facility] Start: 06-05-2022 End: 08-05-2022 Bacteria identified in Urine by Culture URINE CULTURE Microbiology Routine Proteinuria, unspecified type Leukocytosis, unspecified type Expected: 06/05/2022, Expires: 08/05/2022 [facility] Work Phone: Comment on above: Expected: 06/05/2022, Expires: 2 Start: 06-05-2022 End: 08-05-2022 Urinalysis complete panel - Urine URINALYSIS, WITH MICROSCOPIC Lab Routine Proteinuria, unspecified type Leukocytosis, unspecified type Expected: 06/05/2022, Expires: 08/05/2022 [facility] Work Phone: Comment on above: [...] Medication overuse headache Expected: 04/09/2022, Expires: 06/09/2022 [facility] Work Phone: Comment on above: [...] Medication overuse headache Expected: 04/09/2022, Expires: 06/09/2022 [facility] Work Phone: Comment on above: Expected: 04/09/2022, Expires: 2 Start: 12-26-2021 Patient referral [facility] Work Phone: Start: 12-13-2021 COVID-19 VACCINE (4 - Booster for Moderna series) COVID-19 VACCINE (4 - Booster for Moderna series) [facility] Start: 12-13-2021 COVID-19 VACCINE (4 - Moderna series) COVID-19 VACCINE (4 - Moderna series) [facility] Start: 11-04-2021 DEPRESSION ASSESSMENT DEPRESSION ASSESSMENT [facility] Start: 08-11-2021 Hepatitis B screening URINE ALBUMIN:CREATININE RATIO [facility] Start: 07-15-2021 Hemoglobin A1c/Hemoglobin.total in Blood HBA1C [facility] Start: 07-28-2020 PNEUMOCOCCAL (2 - PCV) PNEUMOCOCCAL (2 - PCV) [facility] Start: 07-28-2020 Pneumococcal vaccination Pneumococcal Vaccine (2 of 2 - PCV) [facility] Start: 09-24-2017 End: 09-24-[address] [facility] Work Phone: Start: 09-23-2017 End: 09-23-[address] [facility] Work Phone: Start: 09-17-2017 End: 09-17-[address] [facility] Work Phone: Start: 09-16-2017 End: 09-16-[address] [facility] Work Phone: Start: 09-12-2017 End: 09-12-[address] [facility] Work Phone: Start: 09-10-2017 End: 09-10-[address] [facility] Work Phone: Start: 09-09-2017 End: 09-09-[address] [facility] Work Phone: Start: 09-05-2017 End: 09-05-[address] [facility] Work Phone: Start: 09-05-2017 End: 09-05-2017 Follow up Appt 2x/week Follow up Appt 2x/week [facility] Work Phone: Start: 09-03-2017 End: 09-05-2017 Follow up Appt 2x/week Follow up Appt 2x/week [facility] Work Phone: Start: [...] w/o contrast material MRI Lumbar Spine [facility] Work Phone: Start: 06-06-2017 End: 06-06-2017 Mri spinal canal lumbar w/o contrast material MRI Lumbar Spine [facility] Work Phone: Start: 05-10-2017 End: 05-10-2017 Radex spine lumbosacral minimum 4 views X-Ray, Spine, Lumbosacral 2-[address] [facility] Work Phone: Start: 05-09-2017 End: 05-09-2017 Physical Therapy General Physical Therapy [facility], [address] [place] [address], [id number] [facility] Work Phone: Start: 2001 HEPATITIS B (1 of 3 - Risk 3-dose series) HEPATITIS B (1 of 3 - Risk 3-dose series) [facility] Start: 2000 BP CONTROLLED (<130/80) BP CONTROLLED (<130/80) [facility] Start: 2000 Depression Screening Depression Screening [facility] Start: 1982 HEPATITIS B (1 of 3 - 3-dose series) HEPATITIS B (1 of 3 - 3-dose series) [facility] Alanine aminotransfe rase [Enzymatic activity/volume] in Serum or Plasma [facility] Albumin [Mass/volume ] in Serum or Plasma [facility] Alkaline phosphatase [Enzymatic activity/volume] in Serum or Plasma [facility] Anion gap in Serum or Plasma [facility] Bilirubin, total measurement [facility] BUN/Creatinine ratio [facility] Calcium [Mass/volume ] in Serum or Plasma [facility] Carbon dioxide, tota l [Moles/volume] in Central venous blood [facility] Chiropractic manipulation [facility] Creatinine [Mass/vol ume] in Serum or Plasma [facility] End: 03-29-2024 Ct soft tissue neck w/contrast material CT NECK SOFT TISSUE W IVCON Radiology Routine Soft tissue mass 1 Occurrences starting 02/28/2023 until 03/29/2024 [facility] Work Phone: Comment on above: 1 Occurrences starting 02/28/2023 until 03/29/2024 End: 12-17-2025 DBT Breast - bilateral screening FLASH SCREENING W JAQUELIN Radiology Routine Encounter for screening mammogram for breast cancer 1 Occurrences starting 11/17/2024 until 12/17/2025 [facility] Work Phone: Comment on above: 1 Occurrences starting 11/17/2024 until 12/17/2025 End: 07-07-2026 DBT Breast - bilateral screening FLASH SCREENING W JAQUELIN Radiology Routine Encounter for screening mammogram for breast cancer 1 Occurrences starting 06/07/2025 until 07/07/2026 [facility] Comment on above: 1 Occurrences starting 06/07/2025 until 07/07/2026 End: 09-04-2023 ECG COMPLETE ECG COMPLETE ECG Routine Prolonged Q-T interval on ECG 1 Occurrences starting 09/04/2022 until 09/04/2023 [facility] Work Phone: Comment on above: 1 Occurrences starting 09/04/2022 until 09/04/2023 End: 03-05-2024 EPIL EEG ROUTINE EPIL EEG ROUTINE NEUROLOGY Routine Altered awareness, transient 1 Occurrences starting 03/05/2023 until 03/05/2024 [facility] Work Phone: Comment on above: 1 Occurrences starting 03/05/2023 until 03/05/2024 Erythrocyte mean cor puscular volume determination [facility] Glucose [Mass/volume ] in Serum or Plasma [facility] Hematocrit [Volume F raction] of Blood [facility] Hemoglobin [Mass/vol ume] in Blood [facility] Hemoglobin A1c/Hemoglobin.total in Blood [facility] Hemoglobin A1c/Hemoglobin.total in Blood [facility] Injection aa&/strd suprascapular nerve INJECT NERV BLCK,SUPRASCAP N. Procedures Routine Adhesive capsulitis of left shoulder Primary osteoarthritis of left shoulder Ordered: 05/10/2022 [facility] Work Phone: Comment on above: Ordered: 05/10/2022 Iron [Mass/mass] in Unspecified specimen [facility] Iron saturation [Mas s Fraction] in Serum or Plasma [facility] Leukocytes [#/volume ] in Blood [facility] Magnesium [Mass/volu me] in Serum or Plasma [facility] Work Phone: Magnesium measurement [facility] End: 07-05-2024 FLASH SCREENING FLASH SCREENING Radiology Routine Encounter for screening mammogram for malignant neoplasm of breast 1 Occurrences starting 06/06/2023 until 07/05/2024 [facility] Work Phone: Comment on above: 1 Occurrences starting 06/06/2023 until 07/05/2024 End: 01-07-2025 FLASH SCREENING W JAQUELIN FLASH SCREENING W JAQUELIN Radiology Routine Encounter for screening mammogram for malignant neoplasm of breast 1 Occurrences starting 12/09/2023 until 01/07/2025 [facility] Work Phone: Comment on above: 1 Occurrences starting 12/09/2023 until 01/07/2025 Mean corpuscular hem oglobin concentration determination [facility] Mean corpuscular hem oglobin determination [facility] Measurement of renal function [facility] Methicillin resistan t Staphylococcus aureus (MRSA) DNA [Presence] in Nose by ALLYSON with probe detection [facility] MR Lower Extremity Joint [facility] End: 01-06-2024 Mri brain brain stem w/o contrast material MRI BRAIN WO IVC Radiology Routine Post concussion syndrome Intractable acute post-traumatic headache Dizziness Cervicalgia 1 Occurrences starting 12/07/2022 until 01/06/2024 [facility] Work Phone: Comment on above: 1 Occurrences starting 12/07/2022 until 01/06/2024 End: 01-06-2024 Mri spinal canal cervical w/o contrast matrl MRI CERVICAL SPINE WO IVCON Radiology Routine Post concussion syndrome Intractable acute post-traumatic headache Dizziness Cervicalgia 1 Occurrences starting 12/07/2022 until 01/06/2024 [facility] Work Phone: Comment on above: 1 Occurrences starting 12/07/2022 until 01/06/2024 Neutrophil count [facility] Neutrophil percent differential count [facility] Patient Education [facility] Work Phone: Patient referral [facility] Work Phone: Platelets [#/volume] in Blood [facility] Potassium measurement [facility] Red blood cell count [facility] Red cell distributio n width determination [facility] Serum chloride measurement [facility] Sodium measurement [facility] Total iron binding c apacity measurement [facility] Total protein measurement [facility] Urea nitrogen [Mass/ volume] in Serum or Plasma [facility] Urine culture [facility] End: 03-01-2024 US HEAD/NECK SOFT TISSUE OTHER US HEAD/NECK SOFT TISSUE OTHER Radiology Routine Soft tissue mass 1 Occurrences starting 01/31/2023 until 03/01/2024 [facility] Work Phone: Comment on above: 1 Occurrences starting 01/31/2023 until 03/01/2024 [facility] Work Phone: End: 08-20-2025 XR Chest PA and Lateral XR CHEST 2V FRONTAL/LAT Radiology Routine Cough, unspecified type 1 Occurrences starting 07/21/2024 until 08/20/2025 [facility] Work Phone: Comment on above: 1 Occurrences starting 07/21/2024 until 08/20/2025 End: 01-10-2026 XR Chest PA and Lateral XR CHEST 2V FRONTAL/LAT Radiology STAT Sinobronchitis 1 Occurrences starting 12/11/2024 until 01/10/2026 [facility] Work Phone: Comment on above: 1 Occurrences starting 12/11/2024 until 01/10/2026 End: 05-31-2023 XR RIBS/CHEST 3V AP RIB/OBLS/CXR LEFT XR RIBS/CHEST 3V AP RIB/OBLS/CXR LEFT Radiology Routine Rib pain 1 Occurrences starting 05/01/2022 until 05/31/2023 [facility] Work Phone: Comment on above: 1 Occurrences starting 05/01/2022 until 05/31/2023 [facility] Immunizations Immunization Date Immunization Notes Care Provider Fa [facility] 09-08-2024 influenza, seasonal, injectable, preservative free Dr. Ivette Grimes MD Work Phone: [facility] 09-08-2024 influenza virus vacc ine, unspecified formulation Ivette Grimes MD Work Phone: [facility] 09-23-2023 influenza virus vacc ine, unspecified formulation Ivette Grimes MD Work Phone: [facility] 09-19-2023 influenza, injectabl e, quadrivalent, preservative free Self Referred [facility] 08-06-2022 influenza, injectabl e, quadrivalent, preservative free Dr. Ivette Grimes Work Phone: [facility] 08-06-2022 influenza, seasonal, injectable Ivette Grimes MD Work Phone: [facility] 08-06-2022 influenza virus vacc ine, unspecified formulation Ivette Grimes MD Work Phone: [facility] 10-18-2021 Covid (Moderna) Dr. Ivette Grimes Work Phone: [facility] 08-01-2021 influenza virus vacc ine, unspecified formulation Elle Rasheed MD Work Phone: [facility] 08-01-2021 influenza, injectabl e, quadrivalent, preservative free Dr. Ivette Grimes Work Phone: [facility] 08-01-2021 influenza, seasonal, injectable Dr. Ivette Grimes Work Phone: [facility] 08-01-2021 influenza, seasonal, injectable, preservative free Ivette Grimes MD Work Phone: [facility] 11-29-2020 COVID-19 vaccine, fu ll dose (MODERNA) Elle Rasheed MD Work Phone: [facility] 11-01-2020 Covid (Moderna) Dr. Ivette Grimes Work Phone: [facility] 10-31-2020 COVID-19 vaccine, fu ll dose (MODERNA) Elle Rasheed MD Work Phone: [facility] 08-02-2020 influenza, injectabl e, quadrivalent, preservative free Dr. Ivette Grimes Work Phone: [facility] 08-02-2020 influenza, seasonal, injectable Dr. Ivette Grimes Work Phone: [facility] 08-02-2020 influenza, seasonal, injectable, preservative free Ivette Grimes MD Work Phone: [facility] 08-01-2020 influenza virus vacc ine, unspecified formulation Elle Rasheed MD Work Phone: [facility] 07-30-2019 influenza, injectabl e, quadrivalent, contains preservative Ivette Grimes MD Work Phone: [facility] 07-30-2019 influenza, injectabl e, quadrivalent, preservative free Dr. Ivette Grimes Work Phone: [facility] 07-30-2019 influenza, seasonal, injectable Dr. Ivette Grimes Work Phone: [facility] 07-28-2019 pneumococcal polysaccharide vaccine, 23 valent Elle Rasheed MD Work Phone: [facility] 08-01-2018 influenza, injectabl e, quadrivalent, preservative free Dr. Ivette Grimes Work Phone: [facility] 08-01-2018 influenza, seasonal, injectable Dr. Ivette Grimes Work Phone: [facility] 08-07-2017 influenza, seasonal, injectable Elle Rasheed MD Work Phone: [facility] 07-31-2017 influenza, injectabl e, quadrivalent, preservative free Dr. Ivette Grimes Work Phone: [facility] 07-31-2017 influenza, seasonal, injectable Dr. Ivette Grimes Work Phone: [facility] 08-02-2016 influenza, injectabl e, quadrivalent, preservative free Dr. Ivette Grimes Work Phone: [facility] 08-02-2016 influenza, seasonal, injectable Dr. Ivette Grimes Work Phone: [facility] 07-09-2016 influenza, injectabl e, quadrivalent, contains preservative Elle Rasheed MD Work Phone: [facility] 03-05-2016 hepatitis B vaccine, pediatric or pediatric/adolescent dosage Elle Rasheed MD Work Phone: [facility] 03-05-2016 hepatitis B vaccine, unspecified formulation Elle Rasheed MD Work Phone: [facility] 07-25-2015 influenza, injectabl e, quadrivalent, contains preservative Ivette Grimes MD Work Phone: [facility] 07-25-2015 influenza, injectabl e, quadrivalent, preservative free Dr. Ivette Grimes Work Phone: [facility] 07-25-2015 influenza, seasonal, injectable Dr. Ivette Grimes Work Phone: [facility] 07-25-2015 varicella virus vaccine Cathy Rasheed MD Work Phone: [facility] 06-06-2015 hepatitis B vaccine, pediatric or pediatric/adolescent dosage Elle Rasheed MD Work Phone: [facility] 05-05-2015 hepatitis B vaccine, pediatric or pediatric/adolescent dosage Elle Rasheed MD Work Phone: [facility] 06-01-2013 tetanus toxoid, redu jamila diphtheria toxoid, and acellular pertussis vaccine, adsorbed Elle Rasheed MD Work Phone: [facility] 02-22-2009 human papilloma viru s vaccine, quadrivalent Elle Rasheed MD Work Phone: [facility] Work Phone: 09-27-2008 human papilloma viru s vaccine, quadrivalent Elle Rasheed MD Work Phone: [facility] Work Phone: 07-20-2008 human papilloma viru s vaccine, quadrivalent Elle Rasheed MD Work Phone: [facility] Work Phone: Payers Date Payer Category Payer Unknown [id number] 2024 Self-pay [id number] [phone] [id number] 2022 Government (not [facility] or Medicaid) [facility] Address: [address] [address] [id number] 2022 Private Health Insurance [id number] 2022 Unknown [id number] 2020 Unknown [id number]. [id number] 2019 Unknown [id number]. [id number]. [id number] 2015 Unknown [id number] Unknown [id number] Unknown [id number] 2.16.840.1.683472.3.579.2. 462 Unknown [id number] 2.16.840.1.326866.3.579.2. 462 Unknown [id number] 2.16.840.1.249981.3.579.2. 462 Unknown [id number] 2.16.840.1.534312.3.579.2. 462 Unknown [id number] 2.16840.1.392156.3.579.2. 462 Unknown [id number] 2.16840.1.149598.3.579.2. 462 Unknown [id number] 2.840.1.603695.3.579.2. 462 Unknown [id number] 2.840.1.190261.3.579.2. 462 Unknown [id number] 2.840.1.721975.3.579.2. 462 Unknown [id number] 2.840.1.733328.3.579.2. 462 Unknown [id number] 2.840.1.409299.3.579.2. 462 Unknown [id number] 2.840.1.657067.3.579.2. 462 Unknown [id number] 2.16840.1.602960.3.579.2. 462 Unknown [id number] 2.840.1.308119.3.579.2. 462 Unknown [id number] 2.16840.1.915120.3.579.2. 462 Unknown [id number] 2.16840.1.279326.3.579.2. 462 Unknown [id number] 2.16840.1.442746.3.579.2. 462 Unknown [id number] 2.16840.1.133213.3.579.2. 462 Unknown [id number] 2.16840.1.300706.3.579.2. 462 Unknown [id number] 2.16.840.1.341152.3.579.2. 462 Unknown [id number] 2.16840.1.408026.3.579.2. 462 Unknown [id number] 2.16.840.1.434068.3.579.2. 462 Unknown [id number] 2.16840.1.867702.3.579.2. 462 Unknown [id number] 2.840.1.348725.3.579.2. 462 Unknown [id number] 2.840.1.911642.3.579.2. 462 Unknown [id number] 2.840.1.688837.3.579.2. 462 Unknown [id number] 2.840.1.695814.3.579.2. 462 Unknown [id number] 2.840.1.992115.3.579.2. 462 Unknown [id number] 2.840.1.808167.3.579.2. 462 Unknown [id number] 2.840.1.909979.3.579.2. 462 Unknown [id number] 2.840.1.864275.3.579.2. 462 Unknown [id number] 2.840.1.035785.3.579.2. 462 Unknown [id number] 2.840.1.736004.3.579.2. 462 Unknown [id number] 2.840.1.540868.3.579.2. 462 Unknown [id number] 2.840.1.030789.3.579.2. 462 Unknown [id number] 2.840.1.708015.3.579.2. 462 Unknown [id number] 2.840.1.167540.3.579.2. 462 Unknown [id number] 2.840.1.866700.3.579.2. 462 Unknown [id number] 2.16.840.1.509217.3.579.2. 462 Social History Date Type Detail Facility Start: 03-14-2011 End: 07-05-2025 Tobacco smoking status NHIS Never smoked tobacco [facility] Start: 01-25-2022 End: 07-15-2025 Alcohol intake Current non-drinker of alcohol (finding) [facility] Start: 09-13-2020 End: 11-01-2022 History SDOH Alcohol Frequency 1 [facility] Start: 03-09-2020 History SDOH Social Connections Phone 5 [facility] Start: 03-09-2020 End: 11-01-2022 History SDOH Social Connections Get Together 2 [facility] Start: 03-09-2020 End: 11-01-2022 History SDOH Social Connections Bahai 3 [facility] Start: 03-09-2020 End: 11-01-2022 History SDOH Social Connections Living 7 [facility] Start: 09-13-2020 End: 11-01-2022 History SDOH Financial 4 [facility] Start: 08-15-2020 Education 16 [facility] Start: 1980 Sex Assigned At Female [facility] Start: 01-19-2022 End: 01-22-2023 Exposure to SARS-CoV-2 (event) Not sure [facility] Start: 02-06-2022 End: 02-04-2024 Tobacco smoking status NHIS Unknown if ever smoked [facility] Start: 05-15-2020 None [facility] Start: 05-15-2020 Alone [facility] Start: 05-05-2020 Non-smoker [facility] Start: 03-14-2011 End: 07-19-2022 Tobacco use and exposure Smokeless tobacco non-user [facility] Work Phone: Start: 11-01-2022 History SDOH Alcohol Std Drinks 0 [facility] Start: 11-01-2022 End: 05-17-2023 History of Social function [facility] Start: 11-01-2022 End: 05-17-2023 Social connection and isolation panel [facility] Do you belong to any clubs or organizations such as gnosticism groups, unions, fraternal or athletic groups, or school groups? No [facility] Are you now , , , , never or living with a partner? Never [facility] How often to you hav e a drink containing alcohol? Never [facility] Start: 10-05-2012 How many standard drinks containing alcohol do you have on a typical day? Patient does not drink [facility] How hard is it for y ou to pay for the very basics like food, housing, medical care, and heating Not very hard [facility] Do you feel stress - tense, restless, nervous, or anxious, or unable to sleep at night because your mind is troubled all the time - these days [OSQ] Only a little [facility] (I/We) worried wheth er (my/our) food would run out before (I/we) got money to buy more. Never true [facility] Start: 05-27-2020 Gender identity Identifies as female gender (finding) [facility] Start: 05-27-2020 Sexual orientation Heterosexual (fin glory) [facility] Do you belong to any clubs or organizations such as gnosticism groups, unions, [employer] or athletic groups, or school groups? Yes [facility] Start: 02-02-2025 Sex Female (finding) [facility] NEGATED: Highlighted row [facility] Medical Equipment Procedure Code Equipment Code Equipment Origin al Text Equipment Identifier Dates [id number], [id number] Start: 07-22-2018 Comment on above: Test blood [...] 04-26-2020 Pen Needle, Diabetic 31 gauge x 5/32 needle Start: 07-07-2025 STENT,URETERAL PIGTAIL [id number] FDA Start: 02-25-2019 Blood Sugar Diagnostic (Blood Glucose Test) strip Start: 04-26-2020 Pen Needle, Diabetic 31 gauge x 5/32 needle Start: 07-07-2025 FDA Start: 02-25-2019 FDA Start: 02-25-2019 Goals Date Patient Goal Desired Activity /State Functional Status Date Assessment Result Facility 07-07-2025 Functional status Ambulates [facility] Work Phone: 12-11-2024 Total score [AUDIT-C] 0 12/11/19 25 10:02 AM EST User, Katehellen [facility] 12-11-2024 Within the last year , have you been humiliated or emotionally abused in other ways by your partner or ex-partner? No 12/11/2024 10:02 AM EST User, [facility] 12-11-2024 Within the last year , have you been afraid of your partner or ex-partner? No 12/11/2024 10:02 AM EST User, [facility] 12-11-2024 Within the last year , have you been raped or forced to have any kind of sexual activity by your partner or ex-partner? No 12/11/2024 10:02 AM EST User, [facility] 12-11-2024 Within the last year , have you been kicked, hit, slapped, or otherwise physically hurt by your partner or ex-partner? No 12/11/2024 10:02 AM EST User, Mychart No [facility] 12-11-2024 How often to you hav e a drink containing alcohol? Never 12/11/2024 10:02 AM EST User, Mychart Never [facility] 12-11-2024 Functional status Patient does n ot drink 12/11/2024 10:02 AM EST User, [email or web address] Patient does not drink [facility] 12-11-2024 How often do you hav e 6 or more drinks on 1 occasion? Never 12/11/2024 10:02 AM Shaknar Melchor Never [facility] 08-07-2023 Functional status Chair [facility] Work Phone: 10-22-2014 Are you deaf, or do you have serious difficulty hearing No 10/22/2014 10:49 AM Ashanti Mejia Ma [facility] 10-22-2014 Are you blind, or do you have serious difficulty seeing, even when wearing glasses No 10/22/2014 10:49 AM Ashanti Mejia Ma No [facility] 10-22-2014 Do you have serious difficulty walking or climbing stairs No 10/22/2014 10:49 AM Ashanti Mejia Ma No [facility] 10-22-2014 Do you have difficul ty dressing or bathing No 10/22/2014 10:49 AM Ashanti Mejia Ma No [facility] 10-22-2014 Because of a physica l, mental, or emotional condition, do you have difficulty doing errands alone such as visiting a physician's office or shopping No 10/22/2014 10:49 AM Ashanti Mejia Ma [facility] Mental Status Date Assessment Result Facility 07-07-2025 Cognitive function Voice/Name [facility] Work Phone: 06-23-2025 Cognitive function Voice/Name [facility] Work Phone: 11-11-2024 Cognitive function Voice/Name [facility] Work Phone: 02-04-2024 Cognitive function Level Of Cons ciousness Awake;Alert;Appropriate [facility] Work Phone: 08-07-2023 Cognitive function Voice/Name [facility] Work Phone: 08-05-2023 Cognitive function Level Of Cons ciousness Awake;Alert;Appropriate;Fol lows Commands [facility] Work Phone: 05-20-2023 Cognitive function Level Of Cons ciousness Awake;Alert;Appropriate [facility] Work Phone: 12-03-2022 Cognitive function Level Of Cons ciousness Awake;Alert;Appropriate;Fol lows Commands [facility] Work Phone: 11-27-2022 Cognitive function Level Of Cons ciousness Awake;Alert;Appropriate [facility] Work Phone: 10-22-2014 Because of a physica l, mental, or emotional condition, do you have serious difficulty concentrating, remembering, or making decisions No 10/22/2014 10:49 AM EST [facility] Ashanti Ramirez [facility] Clinical Notes 12-06-2012 to 09-16-2025 Patient InstructionsSuLubna hernandez APRN.[facility] - 07/15/2025 9:33 AM EDTTelephone Encounter - Lubna De La Garza APRN.[facility] - 07/15/2025 9:24 AM EDLittle Saleh MA - 07/09/2025 8:01 AM EDT Note Date & Type Note Facility 09-16-2025 Note [facility] 08-04-2025 Note HNO ID: [id number] Author: FATUMA BECKFORD PA-C Service: ? Author Type: Physician Manager Lean Type: Progress Notes Filed: 08/04/2025 17:00 Note [...] for migraine Informed Consent Consent Obtained: Written [place] Protocol A moment to CARE was completed [...] collected. Written Consent Obtained: Written LOT #: [id number] Expiration Date: Month: Year: 2026 Second vial: LOT #: [id number] Expiration Date: Month: Year: 2026 Injection Sites Left (Units) Left (Sites) Right (Units) Right (Sites) TOTAL (Units) Screener And Blender Operator 5 1 5 1 10 Procerus Units: [...] have some times where they were daily. Katherin marquez did help in the summer. Then had shoulder surgery and caused YUAN to worsen. Would like to wean down on TPM, will decrease 50mg every 2-3 weeks until stop. Fatuma Beckford PA-C [facility] 07-29-2025 Note HNO ID: [id number] Author: IVETTE GRIMES MD Service: ? Author [...] more than 10 doses a month. fexofenadine (AMLA ALLERGY) 180 mg tablet Take 1 tablet by mouth once daily. Ipratropium Hadley (ATROVENT) 21 mcg (0.03 %) nasal spray [...] 2 DM - Controlled E11.9 Insulin: No Iwfiicug-Ao-Nun-Fe-FA tab Take 1 tablet by mouth once [...] Age of Onset Alcohol/Drug Mother Heart Father [place] Cancer Father PANCREATIC CANCER Diabetes Father Coronary [...] maintenance issues tod (more content not included)... [facility] 07-15-2025 Instructions Lubna De La Garza APRN.CNP - 07/15/2025 9:54 AM EDT - Continue [...] ordered last month documented in this encounter [facility] 07-15-2025 Note HNO ID: [id number] Author: LUBNA DE LA GARZA APRN.CNP Service: ? Author Type: Nurse Practitioner Type: Progress Notes Filed: 07/15/2025 09:54 Note Text: This is a 45 year old female who presents today with: Patient presents with: Hospital F/U: [facility] DX Sepsis, UTI D/C 07/07 HISTORY OF PRESENT ILLNESS: Tori Gray is a 45 year old female. Patient presents with: Hospital F/U: [facility] DX Sepsis, UTI D/C 07/07 The patient is a 45-year-old female with type 2 DM on insulin, presenting for follow-up of glycemic control and evaluation of persistent fatigue post-hospitalization for anemia. UTI: - Tori Gray was hospitalized for a UTI; completed a course of cefdinir yesterday. - Reports feeling 80% better with no current dysuria. - Believes the [...] 1 tablet by mouth once daily. Ipratropium Hadley (ATROVENT) 21 mcg (0.03 %) nasal spray [...] 2 DM - Controlled E11.9 Insulin: No Ooalxvzb-Hv-Iwo-Fe-FA tab Take 1 tablet by mouth once daily. No current facility-administered medications for this visit. FAMILY HISTORY Problem Relation Age of Onset Alcohol/Drug Mot (more content not included)... [facility] 07-15-2025 History of Presen t illness Narrative This is a 45 year old female who presents today with: Patient presents with: Hospital F/U: [facility] DX Sepsis, UTI D/C 07/07 HISTORY OF PRESENT ILLNESS: Tori Gray is a 45 year old female. Patient presents with: Hospital F/U: [facility] DX Sepsis, UTI D/C 07/07 The patient is a 45-year-old female with type 2 DM on insulin, presenting for follow-up of glycemic control and evaluation of persistent fatigue post-hospitalization for anemia. UTI: - Tori Gray was hospitalized for a UTI; completed a course of cefdinir yesterday. - Reports feeling 80% better with no current dysuria. - Believes the [...] 1 tablet by mouth once daily. Ipratropium Hadley (ATROVENT) 21 mcg (0.03 %) nasal spray [...] 2 DM - Controlled E11.9 Insulin: No Eggqpfmz-Ow-Ajx-Fe-FA tab Take 1 tablet by mouth once daily. No current facility-administered medications for this visit. FAMILY HISTORY Problem Relation Age of Onset Alcohol/Drug Mother Heart Father [place] Cancer Father PANCREATIC CANCER Diabetes Father Coronary [...] septic shock, unspecified acute renal failure type ([facility]) (A41.51) - Recent hospitalization for E. coli sepsis with acute renal failure; completed course of cefdinir. - No current urinary symptoms; infection likely related to recent shoulder surgery and catheterization. - finished antibiotic yesterday 2. Type 2 diabetes mellitus with microalbuminuria, with long-term current use of insulin ([facility]) (E11.29) 3. Microalbuminuria (R80.9) 4. Type 2 diabetes mellitus without complication, with long-term current use of insulin ([facility]) (E11.9) - Hyperglycemia during hospitalization (glucose 480 [...] Drug use: No documented in this encounter [facility] 07-15-2025 Telephone encounter Note Patient was seen at [facility] on August 03, 2025 for sepsis, complicated urinary tract infection. Patient presented to the emergency room with some confusion and found to have hyperosmolar nonketotic state as well as sepsis secondary to urinary tract infection in addition to acute kidney injury. She was seen by the ship pilot. Acute metabolic encephalopathy secondary to sepsis and [...] at bedtime Ozempic 2 mg weekly continued [facility] 07-15-2025 Miscellaneous Notes Patient was seen at [facility] on August 03, 2025 for sepsis, complicated urinary tract infection. Patient presented to the emergency room with some confusion and found to have hyperosmolar nonketotic state as well as sepsis secondary to urinary tract infection in addition to acute kidney injury. She was seen by the ship pilot. Acute metabolic encephalopathy secondary to sepsis and [...] mg weekly continued documented in this encounter [facility] 07-09-2025 Note HNO ID: [id number] Author: LUBNA DE LA GARZA APRN.CNP Service: ? Author Type: Nurse Practitioner Type: Progress Notes Filed: 07/09/2025 13:27 Note Text: Lisinopril renewed. [facility] 07-09-2025 History of Presen t illness Narrative Lisinopril renewed. TRANSITION CARE MANAGEMENT (TCM) INITIAL CONTACT Retail Attendant Outreach Provider Action/FYI: Patient needs a refill of her lisinopril Initial contact with patient post discharge, spoke to patient. Patient identified by name and . TRANSITION CARE MANAGEMENT INITIAL OUTREACH DOCUMENTATION: 07/09/2025 07/09/2025 Date of Outreach: Outreach Attempt 1: Contact Made Date of Discharge 07/07/2025 SUMMARY: -Pt discharged from [facility] on 07/07/25. -Admitted for: Acute Sepsis, [...] recent hospitalization: Epic documented in this encounter [facility] 07-09-2025 Note HNO ID: [id number] Author: LITTLE MURPHY MA Service: ? Author Type: Retail Attendant Type: Progress Notes Filed: 07/09/2025 13:27 Note Text: TRANSITION CARE MANAGEMENT (TCM) INITIAL CONTACT Retail Attendant Outreach Provider Action/FYI: Patient needs a refill of her lisinopril Initial contact with patient post discharge, spoke to patient. Patient identified by name and . TRANSITION CARE MANAGEMENT INITIAL OUTREACH DOCUMENTATION: 07/09/2025 07/09/2025 Date of Outreach: Outreach Attempt 1: Contact Made Date of Discharge 07/07/2025 SUMMARY: -Pt discharged from [facility] on 07/07/25. -Admitted for: Acute Sepsis, [...] home? Yes Medical records from recent hospitalization: [facility] 07-09-2025 Note Patient Outreach (FA MPWS) TORI GRAY ([id number]) 1980 F Date Time Provider Department 07/09/25 LITTLE MURPHY During your visit today, we recorded the following information about you: Little Murphy MA 07/09/2025 1:27 PM Signed TRANSITION CARE MANAGEMENT (TCM) INITIAL CONTACT Retail Attendant Outreach Provider Action/FYI: Patient needs a refill of her lisinopril Initial contact with patient post discharge, spoke to patient. Patient identified by name and . TRANSITION CARE MANAGEMENT INITIAL OUTREACH DOCUMENTATION: 07/09/2025 07/09/2025 Date of Outreach: Outreach Attempt 1: Contact Made Date of Discharge 07/07/2025 SUMMARY: -Pt discharged from [facility] on 07/07/25. -Admitted for: Acute Sepsis, [...] Medical records from recent hospitalization: Lubna Li APRN.CNP 07/09/2025 1:27 PM Signed Lisinopril renewed. Allergies As of Date: 07/09/2025 Noted Allergy Reaction FARXIGA (DAPAGLIFLOZIN) 08/05/2024 8 - GI Upset LIDOCAINE 12/24/2019 4 - Hives METFORMIN 08/05/2024 8 - GI Upset STEROIDS (BETAMETHASONE DIPROPION*12/21/2021 4 - Hives Date Reviewed: 06/07/2025 Reviewed by: Casi Encinas - Fully Assessed Reason for Visit: Transition Of Care [4074] Cmt: [facility] Discharge 07/07/25 Visit Diagnoses:Microalbuminuria [R80.9] Type [...] tablet by mouth once daily. - Ipratropium Hadley (ATROVENT) 21 mcg (0.03 %) nasal spray [...] DM - Controlled E11.9 Insulin: No - Lvkwyouw-Ti-Ddj-Fe-FA tab Take 1 tablet by mouth once daily. Meds Comments as of 03/01/2019: Percocet March 01, 2019 Stephanie Suresh RN Problem List As Of Date 07/09/2025 Noted Resolved SUPERVIS NORMAL 1ST PREG [Z34.00] 11/09/2005 07/02/2006 TRANS HYPERTEN-ANTEPART [O13.9] 06/19/2006 07/02/2006 KERATOSIS PILARIS////SKIN ANOMALY NEC [Q82.8] 03/26/2007 01/23/2010 Other Acne [L70.8] 03/26/2007 FOLLICULITIS///HAIR DISEASES NEC [L67.8, L73.8] 03/26/2007 0 (more content not included)... [facility] 07-07-2025 Discharge summary Note Date/Time July 07, 2025 8:29am [facility] Medical Records Department [address] [place] [address] Discharge Summary 07/07/25 0816 MR#: [id number] Acct: [id number] Name: TORI GRAY Rep #:[id number] : 1980 45 From: Brittany Harrison MD PCP: Dr. Ivette Grimes MD Status:ADM I N Location: ICU CVICU 2-1 Providers Date of Admission: 07/05/25 Date of Discharge: 07/07/25 Primary Care Physician: Dr. Ivette Grimes MD Consultations 07/05/25 23:32 Consult: Software Test Engineer / Pulmonary Medicine Routine Consulting Provider: Intensivists/Pulmonary [...] QWEEK 07/05/25 BIPAP -Bilevel Positive Airway Pressure ([facility] INFORMATIONAL USE ONLY) 07/06/25 CPAP - Continuous Positive Airway Pressure([facility] INFORMATIONAL USE ONLY) 07/06/25 cefdinir 300 mg capsule 300 mg PO BID 7 days #14 caps 07/07/25 insulin glargine 100 unit/mL (3 mL) subcutaneous pen (Lantus Solostar U-100 Insulin) 10 unit (0.1 mL) subcut QPM #15 mL 07/07/25 pen needle, diabetic 31 gauge x #100 ea 07/07/25 Hospital Course Summary of [...] (DME) pen needle, diabetic 31 gauge x 5/32 needle See Rx Instructions .ROUTE .MEDSUPPLY Qty: [...] QWEEK (DME) BIPAP -Bilevel Positive Airway Pressure ([facility] INFORMATIONAL USE ONLY) Device See Rx Instructions .ROUTE Patient Comments: VAuto: IPAP=19.2 EPAP=12.4 PS=6.8 Rx Instructions: As directed (DME) CPAP - Continuous Positive Airway Pressure([facility] INFORMATIONAL USE ONLY) Device See Rx [...] Self Care Charges/Coding Visit Charges Inpatient E&M: 35637 Disch Hosp >30min 07/07/25 0829 <Electronically signed by Brittany Harrison MD> Cosigner Signature (if applicable): CC: Dr. Brittany Harrison MD; Dr. Ivette Grimes MD~ Signed [facility] Work Phone: 1(365) 185-675509-03-2025 Progress note Author Brittany Harrison [facility] Note Date/Time July 07, 2025 8:16am [facility] Medical Records Department [address] [place] [address] Progress Note - Hospitalist 07/07/25 0719 MR#: [id number] Acct: [id number] Name: ISAACTORI KELLY Rep #:[id number] : 1980 45 From: Brittany Harrison MD PCP: Dr. Ivette Grimes MD Status:ADM I N Location: ICU [place] [address] 2-1 Reason for Visit Chief Complaint: Altered [...] bilateral SCDs Charges/Coding Visit Charges Inpatient E&M: 24633 Subs Hosp L2 07/07/25 0816 <Electronically signed by Brittany Harrison MD> Cosigner Signature (if applicable): CC: ~ Signed [facility] Work Phone: 1(871) 265-333809-03-2025 Discharge summary [facility] Medical Records Department [address] [place] [address] Discharge Summary 07/07/25 0816 MR#: [id number] Acct: [id number] Name: TORI GRAY Rep #:[id number] : 1980 45 From: Brittany Harrison MD PCP: Dr. Ivette Grimes MD Status:ADM I N [facility]: [facility] Providers Date of Admission: 07/05/25 Date of Discharge: 07/07/25 Primary Care Physician: Dr. Ivette Grimes MD Consultations 07/05/25 23:32 Consult: Software Test Engineer / Pulmonary Medicine Routine Consulting Provider: Intensivists/Pulmonary [...] release 20 mg PO DAILY PRN gerd 10/13/22 topiramate 100 mg tablet 100 mg PO [...] QWEEK 07/05/25 BIPAP -Bilevel Positive Airway Pressure ([facility] INFORMATIONAL USE ONLY) 07/06/25 CPAP - Continuous Positive Airway Pressure([facility] INFORMATIONAL USE ONLY) 07/06/25 cefdinir 300 mg capsule 300 mg PO BID 7 days #14 caps 07/07/25 insulin glargine 100 unit/mL (3 mL) subcutaneous pen (Lantus Solostar U-100 Insulin) 10 unit (0.1 mL) subcut QPM #15 mL 07/07/25 pen needle, diabetic 31 gauge x 5/32 #100 ea 07/07/25 Hospital Course Summary of [...] Admit Date/Time: 07/05/25 21:46 Attending Provider: Brittany Harrsion Primary Care Provider: Ivette Grimes Consulting Providers: Shana Mendoza; Jose Juan Reinoso Discharge Orders/Prescriptions Prescriptions: New cefdinir 300 mg capsule 300 mg PO BID 7 Days Qty: 14 0RF insulin glargine [Lantus Solostar U-100 Insulin] 100 unit/mL (3 mL) insulin pen 10 unit subcut QPM Qty: 15 0RF (DME) pen needle, diabetic 31 gauge x 5/32 needle See Rx Instructions .ROUTE .MEDSUPPLY Qty: [...] QWEEK (DME) BIPAP -Bilevel Positive Airway Pressure ([facility] INFORMATIONAL USE ONLY) Device See Rx Instructions .ROUTE Patient Comments: VAuto: IPAP=19.2 EPAP=12.4 PS=6.8 Rx Instructions: As directed (DME) CPAP - Continuous Positive Airway Pressure([facility] INFORMATIONAL USE ONLY) Device See Rx [...] Self Care Charges/Coding Visit Charges Inpatient E&M: 24969 Disch Hosp >30min 07/07/25 0829 Cosigner Signature (if applicable): CC: Dr. Brittany Harrison MD; Dr. Ivette Grimes MD~ Signed [facility] note [facility] Medical Records Department [address] [place] [address] Progress Note - Hospitalist 07/07/25718 MR#: [id number] Acct: [id number] Name: TORI GRAY Rep #:[id number] : 1980 45 From: Brittany Harrison MD PCP: Dr. Ivette Grimes MD Status:ADM I N Location: ICU [place] [address] 2-1 Reason for Visit Chief Complaint: Altered [...] bilateral SCDs Charges/Coding Visit Charges Inpatient E&M: 36596 Subs Hosp L2 07/07/25 0816 Cosigner Signature (if applicable): CC: ~ Signed [facility]09-02-2025 Progress note Author Jose Juan Reinoso [facility] Note Date/Time July 06, 2025 11:32am [facility] Medical Records Department [address] [place] [address] Progress Note - Hospitalist 07/06/2551 MR#: [id number] Acct: [id number] Name: TORI GRAY Rep #:[id number] : 1980 45 From: Jose Juan petersen [...] 77.6 H, Lymph % (Auto) 14.4 L, Walsh % (Auto) 5.8, Eos % (Auto) 0.9, [...] Sl. Cloudy, Urine pH 6.0, Ur Specific [place] 1.010, Urine Protein 30 H, Urine Glucose [...] 73.6 H, Lymph % (Auto) 16.7 L, Walsh % (Auto) 6.6, Eos % (Auto) 1.4, [...] (MDRD) Non-Af 45 L, BUN/Creatinine Ratio 19.4, Zeeqfes048 H, Hemoglobin A1c 7.6 H, Calcium 8.1, [...] consolidation or sizable pleural effusion. Reading Location: [id number] Abdomen/Pelvis CT 07/05/25 22:18 IMPRESSION: 1. A 10 mm stone at the left UPJ resulting in mild left hydronephrosis. 2. Mildly prominent reactive left para-aortic lymph nodes. Reading Location[id number] Physical Exam Narrative General: Alert, Oriented x3, [...] DVT: SCDs Charges/Coding Visit Charges Inpatient E&M: 15925 Subs Hosp L2 07/06/25 1132 <Electronically signed by Jose Juan Reinoso MD> Cosigner Signature (if applicable): CC: ~ Signed [facility] Work Phone: 1(387) 305-131709-02-2025 Progress note [facility] Medical Records Department [address] [place] [address] Progress Note - Hospitalist 07/06/25950 MR#: [id number] Acct: [id number] Name: TORI GRAY Rep #:[id number] : 1980 45 From: Jose Juan petersen [...] 77.6 H, Lymph % (Auto) 14.4 L, Walsh % (Auto) 5.8, Eos % (Auto) 0.9, [...] Sl. Cloudy, Urine pH 6.0, Ur Specific [place] 1.010, Urine Protein 30 H, Urine Glucose [...] 73.6 H, Lymph % (Auto) 16.7 L, Walsh % (Auto) 6.6, Eos % (Auto) 1.4, [...] (MDRD) Non-Af 45 L, BUN/Creatinine Ratio 19.4, Ckobnaq645 H, Hemoglobin A1c 7.6 H, Calcium 8.1,Phosphorus [...] consolidation or sizable pleural effusion. Reading Location: [id number] Abdomen/Pelvis CT 07/05/25 22:18 IMPRESSION: 1. A 10 mm stone at the left UPJ resulting in mild left hydronephrosis. 2. Mildly prominent reactive left para-aortic lymph nodes. Reading Location: [id number] Physical Exam Narrative General: Alert, Oriented x3, [...] DVT: SCDs Charges/Coding Visit Charges Inpatient E&M: 19794 Subs Hosp L2 07/06/25 1132 Cosigner Signature (if applicable): CC: ~ Signed [facility]09-02-2025 Telephone encounter Note* Telephone Encounter - Little Murphy MA - 07/06/2025 10:17 AM EDT Patient is currently admitted to the [facility]. [facility]09-02-2025 Miscellaneous Notes* Telephone Encounter - Little Murphy MA - 07/06/2025 10:17 AM EDT Patient is currently admitted to the [facility]. [facility] History and physical note Author Shana Mendoza [facility] Note Date/Time July 06, 2025 1:39am [facility] Medical Records Department [address] [place] [address] H&P Exam - Hospitalist 07/05/252134 MR#: [id number] Acct: [id number] Name: TORI GRAY Rep #:[id number] : 1980 45 From: Shana Mendoza MD [...] debridement with arthroscopy who presents to the [facility] ED on 07/05/2025 with history of altered [...] at 150 mL/h, initiated on insulin drip. [facility] Medical History Impingement of left shoulder Diabetes [...] 77.6 H, Lymph % (Auto) 14.4 L, Walsh % (Auto) 5.8, Eos % (Auto) 0.9, [...] Sl. Cloudy, Urine pH 6.0, Ur Specific [place] 1.010, Urine Protein 30 H, Urine Glucose [...] consolidation or sizable pleural effusion. Reading Location: [id number] Assessment & Plan Assessment/Plan (1) Sepsis: (2) Complicated urinary tract infection: PLAN: Plan The patient is a 45 y/o F w/ PMHx: Morbid obesity, Diabetes mellitus type II with chronic neuropathy, LETITIA on BIPAP q HS, HTN, Anxiety and Depression, GERD, Chronic migraines who presents to the [facility] ED on 07/05/2025 with history of altered [...] as noted. Charges/Coding Visit Charges Inpatient E&M: 53022 Init Hosp L3 07/05/255 <Electronically signed by Shana Mendoza MD> Cosigner [...] MD; Dr. Ivette Grimes MD ~* Signed [facility] Work Phone: 1(672) 855-813009-02-2025 Consult note Author Sabrina Kohler l [facility] Note Date/Time July 06, 2025 1:10am [facility] Medical Records Department [address] [place] [address] Consultation - Software Test Engineer 07/06/25 0055 MR#: [id number] Acct: [id number] Name: TORI GRAY Rep #:[id number] : 1980 45 From: Sabrina arthur MD [...] are well heard Abd: Soft Extre:Trace edema BLOCKLAYER: Awake, alert . oriented Assessment/Plan # Hyperglycemia [...] 60 minutes Entire encounter done via Telemedicine [facility] Medical History Impingement of left shoulder Diabetes [...] Tablet PO Q4H PRN PRN Fever, pain 1-1010 Al Hydroxide/Mg Hydroxide 30 ml 07/05/25 23:32 [...] mls @ 15 mls/hr 07/05/25 23:36 IV .[id number] PRN Saline Flush Sodium Chloride 250 mls @ 15 mls/hr 07/05/25 23:36 IV .[id number] PRN Additional IVPB Infusion Dextrose/Sodium Chloride 1,000 [...] 77.6 H, Lymph % (Auto) 14.4 L, Walsh % (Auto) 5.8, Eos % (Auto) 0.9, [...] Sl. Cloudy, Urine pH 6.0, Ur Specific [place] 1.010, Urine Protein 30 H, Urine Glucose [...] consolidation or sizable pleural effusion. Reading Location: [id number] Abdomen/Pelvis CT 07/05/25 22:18 IMPRESSION: 1. A 10 mm stone at the left UPJ resulting in mild left hydronephrosis. 2. Mildly prominent reactive left para-aortic lymph nodes. Reading Location: [id number] Assessment and Plan . Assessment and plan: Critical Care Time: The entirety of this encounter was done via Telemedicine 07/06/25 0110 <Electronically signed by Sabrina Abdul MD> Cosigner Signature (if applicable): CC: Dr. Ivette Grimes MD~ Signed [facility] Work Phone: 1(640) 869-742509-02-2025 History and physical note [facility] Medical Records Department [address] [place] [address] H&P Exam - Hospitalist 07/05/252134 MR#: [id number] Acct: [id number] Name: TORI GRAY Rep #:[id number] : 1980 45 From: Shana Mendoza MD [...] debridement with arthroscopy who presents to the [facility] ED on 07/05/2025 with history of altered [...] at 150 mL/h, initiated on insulin drip. [facility] Medical History Impingement of left shoulder Diabetes [...] 77.6 H, Lymph % (Auto) 14.4 L, Walsh % (Auto) 5.8, Eos % (Auto) 0.9, [...] Sl. Cloudy, Urine pH 6.0, Ur Specific [place] 1.010, Urine Protein 30 H, Urine Glucose [...] consolidation or sizable pleural effusion. Reading Location: [id number] Assessment & Plan Assessment/Plan (1) Sepsis: (2) Complicated urinary tract infection: PLAN: Plan The patient is a 45 y/o F w/ PMHx: Morbid obesity, Diabetes mellitus type II with chronic neuropathy, LETITIA on BIPAP q HS, HTN, Anxiety and Depression, GERD, Chronic migraines who presents to the [facility] ED on 07/05/2025 with history of altered [...] as noted. Charges/Coding Visit Charges Inpatient E&M: 77318 Init Hosp L3 07/05/255 Cosigner Signature (if applicable): CC: Dr. Shana [...] MD; Dr. Ivette Grimes MD ~* Signed [facility]09-02-2025 Consult note [facility] Medical Records Department [address] [place] [address] Consultation - Software Test Engineer 07/06/2554 MR#: [id number] Acct: [id number] Name: TORI GRAY Rep #:[id number] : 1980 45 From: Sabrina arthur MD [...] are well heard Abd: Soft Extre:Trace edema BLOCKLAYER: Awake, alert . oriented Assessment/Plan # Hyperglycemia [...] 60 minutes Entire encounter done via Telemedicine [facility] Medical History Impingement of left shoulder Diabetes [...] mls @ 15 mls/hr 07/05/25 23:36 IV .[id number] PRN Saline Flush Sodium Chloride 250 mls @ 15 mls/hr 07/05/25 23:36 IV .[id number] PRN Additional IVPB Infusion Dextrose/Sodium Chloride 1,000 [...] 77.6 H, Lymph % (Auto) 14.4 L, Walsh % (Auto) 5.8, Eos % (Auto) 0.9, [...] Sl. Cloudy, Urine pH 6.0, Ur Specific [place] 1.010, Urine Protein 30 H, Urine Glucose [...] consolidation or sizable pleural effusion. Reading Location: [id number] Abdomen/Pelvis CT 07/05/25 22:18 IMPRESSION: 1. A 10 mm stone at the left UPJ resulting in mild left hydronephrosis. 2. Mildly prominent reactive left para-aortic lymph nodes. Reading Location[id number] Assessment and Plan . Assessment and plan: Critical Care Time: The entirety of this encounter was done via Telemedicine 07/06/25 0110 Cosigner Signature (if applicable): CC: Dr. Ivette Grimes MD~ Signed [facility]09-02-2025 Discharge summary Author Abhi [facility] Note Date/Time July 05, 2025 10:24pm [facility] Medical Records Department [address] [place] [address] Emergency Department Summary 07/05/25 MR#: [id number] Acct: [id number] Name: TORI GRAY Rep #:[id number] : 1980 45 From: Abhi Pina MD [...] similar symptoms: No Recent Illness/Hospitalization: No PFSH PFS Medical History Impingement of left shoulder Diabetes [...] 77.6 H Lymph % (Auto) 14.4 L Walsh % (Auto) 5.8 Eos % (Auto) 0.9 [...] Sl. Cloudy Urine pH 6.0 Ur Specific [place] 1.010 Urine Protein 30 H Urine Glucose [...] (Auto) Neut % (Auto) Lymph % (Auto) Walsh % (Auto) Eos % (Auto) Baso % [...] Color Urine Clarity Urine pH Ur Specific [place] Urine Protein Urine Glucose (UA) Urine Ketones [...] consolidation or sizable pleural effusion. Reading Location: [facility] EKG Initial EKG: Attestation: I personally reviewed and interpreted this EKG as follows: Interpretation: Sinus Rhythm (Rate is 75. Voltage is low. ME interval is138 ms. QS duration 94 ms per QT duration 384 ms. [place] is normal. There is nonseptic changes which [...] for DKA and sepsis.), Discussing w/Patient &/or Family/Objective C Developer, Discussing w/Consultants and Arranging Admission or Transfer Discharge Plan Dx/Rx/DC Orders Clinical Impression: Sepsis, LETITIA (obstructive sleep apnea), Complicated urinary tract infection, Acidosis, lactic, Acute kidney injury, Acute anemia, Acute hypotension, Adult BMI 45.0- 49.9 kg/sq m Disposition Disposition: Acute Care [facility] What to do if you have Problems For any increased pain, shortness of breath, bleeding, nausea or vomiting, chestpain, or any unexpected problems, contact your Primary Care Provider. Call [facility] ([phone]) or report to the closest Emergency Room. Call 911 if necessary. 07/05/252223 <Electronically signed by Abhi Pina MD> Cosigner Signature (if applicable): CC: Dr. Ivette Grimes MD ~ Signed [facility] Work Phone: 1(587) 637-722309-01-2025 Radiology Diagnostic study note [facility] Imaging Services [address] [place] [address] Abdomen/Pelvis without Cont MR#: [id number] Acct: [id number] Name: TORI GRAY Rep #: [id number] : 1980 F 45 From: Clark Morin MD PCP: Dr. Ivette Grimes MD Status: ADM I N Study:Abdomen/Pelvis without Cont Date of Exa m: 07/05/25 Exam# [id number] Ordering Dr: Savi Mendoza MD PROCEDURE: ABDOMEN/PELVIS [...] reactive left para-aortic lymph nodes. Reading Location: [id number] CC: Dr. Shana Mendoza MD; Dr. Ivette Grimes MD ~ First Cook: Signed [facility]09-01-2025 History and physical note Author Shana Reji [facility] Note Date/Time July 05, 2025 10:25pm [facility] Medical Records Department [address] [place] [address] H&P Exam - Hospitalist 07/05/252134 MR#: [id number] Acct: [id number] Name: TORI GRAY Rep #:[id number] : 1980 45 From: Shana Mendoza MD [...] debridement with arthroscopy who presents to the [facility] ED on 07/05/2025 with history of altered [...] at 150 mL/h, initiated on insulin drip. [facility] Medical History Impingement of left shoulder Diabetes [...] 77.6 H, Lymph % (Auto) 14.4 L, Walsh % (Auto) 5.8, Eos % (Auto) 0.9, [...] Sl. Cloudy, Urine pH 6.0, Ur Specific [place] 1.010, Urine Protein 30 H, Urine Glucose [...] consolidation or sizable pleural effusion. Reading Location: [facility] Assessment & Plan Assessment/Plan (1) Sepsis: (2) Complicated urinary tract infection: PLAN: Plan The patient is a 45 y/o F w/ PMHx: Morbid obesity, Diabetes mellitus type II with chronic neuropathy, LETITIA on BIPAP q HS, HTN, Anxiety and Depression, GERD, Chronic migraines who presents to the [facility] ED on 07/05/2025 with history of altered [...] as noted. Charges/Coding Visit Charges Inpatient E&M: 74080 Init Hosp L3 07/05/252224 <Electronically signed by Shana Mendoza MD> Cosigner Signature (if applicable): CC: Dr. Shana Mendoza MD; Dr. Ivette Grimes MD~ Signed [facility] Work Phone: 1(223) 893-811009-01-2025 History and physical note [facility] Medical Records Department [address] [place] [address] H&P Exam - Hospitalist 07/05/252134 MR#: [id number] Acct: [id number] Name: TORI GRAY Rep #:[id number] : 1980 45 From: Shana Mendoza MD [...] debridement with arthroscopy who presents to the [facility] ED on 07/05/2025 with history of altered [...] at 150 mL/h, initiated on insulin drip. [facility] Medical History Impingement of left shoulder Diabetes [...] 77.6 H, Lymph % (Auto) 14.4 L, Walsh % (Auto) 5.8, Eos % (Auto) 0.9, [...] Sl. Cloudy, Urine pH 6.0, Ur Specific [place] 1.010, Urine Protein 30 H, Urine Glucose [...] consolidation or sizable pleural effusion. Reading Location: [id number] Assessment & Plan Assessment/Plan (1) Sepsis: (2) Complicated urinary tract infection: PLAN: Plan The patient is a 45 y/o F w/ PMHx: Morbid obesity, Diabetes mellitus type II with chronic neuropathy, LETITIA on BIPAP q HS, HTN, Anxiety and Depression, GERD, Chronic migraines who presents to the [facility] ED on 07/05/2025 with history of altered [...] as noted. Charges/Coding Visit Charges Inpatient E&M: 81591 Init Hosp L3 07/05/25 5211 Cosigner Signature (if applicable): CC: Dr. Shana eMndoza MD; Dr. Ivette Grimes MD~ Signed [facility]09-01-2025 Discharge summary [facility] Medical Records Department [address] [place] [address] Emergency Department Summary 07/05/25 MR#: [id number] Acct: [id number] Name: TORI GRAY Rep #:[id number] : 1980 45 From: Abhi Pina MD [...] Prior similar symptoms: No Recent [facility] Medical History Impingement of left shoulder Diabetes [...] 77.6 H Lymph % (Auto) 14.4 L Walsh % (Auto) 5.8 Eos % (Auto) 0.9 [...] Sl. Cloudy Urine pH 6.0 Ur Specific [place] 1.010 Urine Protein 30 H Urine Glucose [...] (Auto) Neut % (Auto) Lymph % (Auto) Walsh % (Auto) Eos % (Auto) Baso % [...] Color Urine Clarity Urine pH Ur Specific [place] Urine Protein Urine Glucose (UA) Urine Ketones [...] consolidation or sizable pleural effusion. Reading Location: [facility] EK Initial EKG: Attestation: I personally reviewed and interpreted this EKG as follows: Interpretation: Sinus Rhythm (Rate is 75. Voltage is low. ME interval is138 ms. QS duration 94 ms per QT duration 384 ms. [place] is normal. There is nonseptic changes which [...] for DKA and sepsis.), Discussing w/Patient &/or Family/Objective C Developer, Discussing w /Consultants and Arranging Admission or Transfer Discharge Plan Dx/Rx/DC Orders Clinical Impression: Sepsis, LETITIA (obstructive sleep apnea), Complicated urinary tract infection, Acidosis, lactic, Acutekidney injury, Acute anemia, Acute hypotension, Adult BMI 45.0-49.9 kg/sq m Disposition Disposition: Acute Care [facility] What to do if you have Problems For any increased pain, shortness of breath, bleeding, nausea or vomiting, chestpain, or any unexpected problems, contact your Primary Care Provider. Call [facility] ([phone]) or report tothe closest Emergency Room. Call 911 if necessary. 07/05/25 4576 Cosigner Signature (if applicable): CC: Dr. Ivette Grimes MD ~ Signed [facility]09-01-2025 Radiology Diagnostic study note [facility] Imaging Services [address] [place] [address] Chest PA and Lateral MR#: [id number] Acct: [id number] Name: TORI GRAY Rep #: [id number] : 1980 F 45 From: Sheng Hankins MD PCP: Dr. Ivette Grimes MD Status: REG E R Study:Chest PA and Lateral Date of Exam: 07/05/25 Exam# [id number] Ordering Dr: Min Pina MD PROCEDURE: CHEST [...] consolidation or sizable pleural effusion. Reading Location: [facility] CC: Dr. Abhi Pina MD; Dr. Ivette Grimes MD ~ First Cook: Signed [facility]09-01-2025 Discharge summary Author Abhi Pina [facility] Note Date/Time July 05, 2025 10:24pm [facility] Medical Records Department [address] [place] [address] Emergency Department Summary 07/05/25 MR#: [id number] Acct: [id number] Name: TORI GRAY Rep #:[id number] : 1980 45 From: Abhi Pina MD [...] Prior similar symptoms: No Recent Illness/Hospitalization: No [facility] Medical History Impingement of left shoulder Diabetes [...] 77.6 H Lymph % (Auto) 14.4 L Walsh % (Auto) 5.8 Eos % (Auto) 0.9 [...] Sl. Cloudy Urine pH 6.0 Ur Specific [place] 1.010 Urine Protein 30 H Urine Glucose [...] (Auto) Neut % (Auto) Lymph % (Auto) Walsh % (Auto) Eos % (Auto) Baso % [...] Color Urine Clarity Urine pH Ur Specific [place] Urine Protein Urine Glucose (UA) Urine Ketones [...] consolidation or sizable pleural effusion. Reading Location: [facility] EKG Initial EKG: Attestation: I personally reviewed and interpreted this EKG as follows: Interpretation: Sinus Rhythm (Rate is 75. Voltage is low. ME interval is138 ms. QS duration 94 ms per QT duration 384 ms. [place] is normal. There is nonseptic changes which [...] for DKA and sepsis.), Discussing w/Patient &/or Family/Objective C Developer, Discussing w/Consultants and Arranging Admission or Transfer Discharge Plan Dx/Rx/DC Orders Clinical Impression: Sepsis, LETITIA (obstructive sleep apnea), Complicated urinary tract infection, Acidosis, lactic, Acute kidney injury, Acute anemia, Acute hypotension, Adult BMI 45.0- 49.9 kg/sq m Disposition Disposition: Acute Care [facility] What to do if you have Problems For any increased pain, shortness of breath, bleeding, nausea or vomiting, chestpain, or any unexpected problems, contact your Primary Care Provider. Call [facility] ([phone]) or report to the closest Emergency Room. Call 911 if necessary. 07/05/252223 <Electronically signed by Abhi Pina MD> Cosigner Signature (if applicable): CC: Dr. Ivette Grimes MD ~ Signed [facility] Work Phone: 1(975) 515-868608-22-2025 [facility] [address] [place] [address] [address] [place] [address] OFFICE VISIT Date of Service: 06/25/25 MR#: [id number] Acct: [id number] Name: TORI GRAY Rep #: [id number] : 1980 Provider: Dr. Killian Quiroga MD Age/Sex: 45/F Location: [facility] Status: Signed Intake Vital Signs 05/06/25 10:04 [...] n MD> Date _ Brett Quiroga MD Cosigner Signature: Date (if applicable) CC: ~ [facility]08-22-2025 Progress note Author Brett Quiroga [facility] Note Date/Time June 25, 2025 9: 35am [facility] [address] [place] [address] OFFICE VISIT Date of Service: 06/25/25 MR#: [id number] Acct: [id number] Name: TORI GRAY Rep #: [id number] : 1980 Provider: Dr. Killian Quiroga MD Age/Sex: 45/F Location: [facility] Status: Signed Intake Vital Signs 05/06/25 10:04 [...] Cosigner Signature: Date (if applicable) CC: ~ [facility] Work Phone: 1([phone]) 691-846908-20-2025 Discharge summary Author Brett Quiroga [facility] Note Date/Time June 23, 2025 8: 39am [facility] Medical Records Department [address] [place] [address] Instructions for Home/Discharge Instructions 06/23/25 0836 MR#: [id number] Acct: [id number] Name: TORI GRAY Rep #:[id number] : 1980 45 From: Brett Quiroga MD [...] Patient Instructions: After Shoulder Arthroscopy Print Language: Bulgarian Discharge Orders/Prescriptions Prescriptions: New oxycodone-acetaminophen [Endocet] 5-325 [...] Ivette Grimes MD ~ Signed [facility] Work Phone: 1(460) 913-706308-20-2025 Consult note [facility] Medical Records Department [address] [place] [address] Pre-Anesthesia Evaluation 06/23/25 0739 MR#: [id number] Acct: [id number] Name: TORI GRAY Rep #:[id number] : 1980 45 From: Ankur ROJO PCP: Dr. Ivette Grimes MD Status:REG S DC Y Race: C Location: [place] [address]-1 ASA Classification* ASA Classification ASA Classification: 3 [...] 11/11/24 Phosphorus 2.2 mg/dL (2.7-4.5) L 06/05/25 09:06/05/25 BUN 9 mg/dL (4-19) 06/05/25 09:06/05/25 Creatinine 0.80 mg/dL (0.70-1.20) 06/05/25 09:06/05/25 Glucose [...] DECOMPRESSION DEBRIDMENT Anesthesia History Anesthesia History - printed circuit layout taper: Anesthesia History - printed circuit layout taper Hx Hospitalization No 06/10/25 09:08 Any Problems [...] take am of surgery PONV PONV - printed circuit layout taper: PONV - printed circuit layout taper Female Yes 06/10/25 09:08 HX of Motion [...] 06/23/25 06:40 Respiratory Assessment Respiratory Assessment - printed circuit layout taper: Respiratory Tract Infection Hx - printed circuit layout taper Hx Respiratory Tract Infection No 06/10/25 09:08 STOP Sleep Apnea STOP Sleep Apnea - printed circuit layout taper: STOP Sleep Apnea - printed circuit layout taper Hx Hypertension No: LISINOPRIL FOR LIVER 06/10/25 [...] Tobacco Use History Tobacco Use History - printed circuit layout taper: Tobacco Use History - printed circuit layout taper Tobacco Use Non-smoker 03/09/25 09:20 Smoking Status Never smoker 06/10/25 09:08 Hx Tobacco Use No 06/10/25 09:08 Years Smoking Packs Smoked per Day Smoking Cessation Date was within the last 15 years Hx Smoking Cessation Date Hx Smoking Cessation Counseling Hematologic Medial History Hematologic Hx - printed circuit layout taper: Hematologic Medical Hx - bilingual hr generalist Hx of Blood Transfusion No 06/10/25 09:08 [...] confused, unrespo /Reproduction History /Reproductive History - printed circuit layout taper: /Reproductive Hx- printed circuit layout taper Hx Now No 06/10/25 09:08 Gestational Age [...] additional complaints, except as documented. 06/23/25 0739 LOW PRESSURE FIRER> Date _ Ankur Templeton LOW PRESSURE FIRER Cosigner Signature: Date CC: ~ Signed [facility]08-20-2025 Consult note Author Ankur Yokasta [facility] Note Date/Time June 23, 2025 10 :38am [facility] Medical Records Department [address] [place] [address] Pre-Anesthesia Evaluation 06/23/25 0739 MR#: [id number] Acct: [id number] Name: TORI GRAY Rep #:[id number] : 1980 45 From: Ankur ROJO PCP: Dr. Ivette Grimes MD Status:REG S DC Y Race: C Location: [place] [address] ASA Classification* ASA Classification ASA Classification: 3 [...] DECOMPRESSION DEBRIDMENT Anesthesia History Anesthesia History - printed circuit layout taper: Anesthesia History - printed circuit layout taper Hx Hospitalization No 06/10/25 09:08 Any Problems [...] take am of surgery PONV PONV - printed circuit layout taper: PONV - printed circuit layout taper Female Yes 06/10/25 09:08 HX of Motion [...] 06/23/25 06:40 Respiratory Assessment Respiratory Assessment - printed circuit layout taper: Respiratory Tract Infection Hx - printed circuit layout taper Hx Respiratory Tract Infection No 06/10/25 09:08 STOP Sleep Apnea STOP Sleep Apnea - printed circuit layout taper: STOP Sleep Apnea - printed circuit layout taper Hx Hypertension No: LISINOPRIL FOR LIVER 06/10/25 [...] Tobacco Use History Tobacco Use History - printed circuit layout taper: Tobacco Use History - printed circuit layout taper Tobacco Use Non-smoker 03/09/25 09:20 Smoking Status Never smoker 06/10/25 09:08 Hx Tobacco Use No 06/10/25 09:08 Years Smoking Packs Smoked per Day Smoking Cessation Date was within the last 15 years Hx Smoking Cessation Date Hx Smoking Cessation Counseling Hematologic Medial History Hematologic Hx - printed circuit layout taper: Hematologic Medical Hx - bilingual hr generalist Hx of Blood Transfusion No 06/10/25 09:08 [...] confused, unrespo /Reproduction History /Reproductive History - printed circuit layout taper: /Reproductive Hx- printed circuit layout taper Hx Now No 06/10/25 09:08 Gestational Age [...] Signature: Date CC: ~ Signed [facility] Work Phone: 1(274) 771-675508-20-2025 History and physical note Author Brett Quiroga [facility] Note Date/Time June 23, 2025 7: 14am [facility] Medical Records Department [address] [place] [address] History & Physical Exam 06/23/25711 MR#: [id number] Acct: [id number] Name: TORI GRAY Rep #:[id number] : 1980 45 From: Brett Quiroga MD PCP: Dr. Ivette Grimes MD Status:REG S DC Location: [place] [address]-1 HPI - General HPI Narrative TORI GRAY, is a 45 F who presents for left shoulder arthroscopy, subacromial decompression, debridement. no change to h and p. ok to proceed. rab, post op instructions, narcotic counselling. possible licodaine allergy, butafter discussion with anesthesia, the patient and the anesthesia provider have decided to proceed with a block. left shoulder marked. ok to proceed. MR#: [id number] Acct: [id number] Name: TORI GRAY Rep #: [id number] : 1980 Provider: Dr. 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 Supplemental Info [facility] Imaging Services [address] [place], [place] [address] Upper Ext Joint Only(Routine) MR#: [id number] Acct: [id number] Name: TORI GRAY Rep #: [id number] : 1980 F 44 From: Salazar Tyson MD PCP: Dr. Ivette Grimes MD Status: REG CLI Study: Upper Ext Joint Only(Routine) Date of Exam: 04/17/25 Exam# [id number] Ordering Dr: Brett Quiroga MD PROCEDURE: UPPER [...] blood flow before exercises. 4. Anti-Inflammatory Medications: Duzq-jcz-vxtclhj medications like ibuprofen or naproxen can help [...] radial pulse. strength FE 4+, ER 5/5. [facility] Medical History Diabetes Fatty liver Gastric reflux [...] 24 hr 06/23/25 06:30: Urine Test Negative 06/23/2514 <Electronically signed by Brett Quiroga MD> Cosigner Signature (if applicable): CC: Dr. Brett Quiroga MD; Dr. Ivette Grimes MD~ Signed [facility] Work Phone: 1(514) 882-776708-20-2025 Consult note [facility] Medical Records Department [address] [place] [address] Anesthesia Postop Eval I 06/23/2557 MR#: [id number] Acct: [id number] Name: ISAACROSIEFOREIGNDinh KELLY Rep #:[id number] : 1980 45 From: Ankur ROJO PCP: Dr. Ivette Grimes MD Status:REG S DC Y Race: C Location: [place] [address] Anesthesia: Postop Eval I Current Vital Signs Temperature: 97.8 F Pulse Rate: 74 Blood Pressure: 114/70 Respiratory Rate: 16 Pulse Ox: 94 Assessment Airway patent: Yes Spontaneous unlabored respirations: Yes nausea: No Vomiting: No Anesthesia Complication: No Fluid Hydration Crystalloid volume administer (ml): 800 Total IV fluid infused: 800 Progress Note Anesthesia document: Postop Eval 1 completed: Yes 06/23/2558 LOW PRESSURE FIRER> Date _ Ankur Templeton LOW PRESSURE FIRER Cosigner Signature: Date CC: ~ Signed [facility]08-20-2025 Discharge summary [facility] Medical Records Department [address] [place] [address] Instructions for Home/Discharge Instructions 06/23/25 0836 MR#: [id number] Acct: [id number] Name: TORI GRAY Rep #:[id number] : 1980 45 From: Brett Quiroga MD [...] Patient Instructions: After Shoulder Arthroscopy Print Language: Bulgarian Discharge Orders/Prescriptions Prescriptions: New oxycodone-acetaminophen [Endocet] 5-325 [...] Ivette Grimes MD ~ Signed [facility]08-20-2025 Procedure note [facility] Medical Records Department [address] [place] [address] Operative Report 06/23/25 0831 MR#: [id number] Acct: [id number] Name: TORI GRAY Rep #:[id number] : 1980 45 From: Brett Quiroga MD PCP: Dr. Ivette Grimes MD Status:REG S MS Location: [facility] 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 corrosion control fitter: Yes Marzipan Maker: jamila Tasks completed by first line production supervisor: Retracting Additional printer floor covering assistant?: No Type of Anesthesia: Block,Regional and [...] home according to day surgery criteria. CPT 42595, 45801 Surgical Findings: As above Complications Complications: No Admit VTE Documentation VTE Present on Admission: No VTE Mechan Device Prophylaxis: SCD's VTE Pharm Prophylaxis ordered?: No Reason prophylaxis not ordered: Treatment Not Indicated 06/23/25 0836 Cosigner Signature (if applicable): CC: Dr. Brett Quiroga MD; Dr. Ivette Grimes MD~ Signed [facility]08-20-2025 History and physical note [facility] Medical Records Department [address] [place] [address] History & Physical Exam 06/23/25 0712 MR#: [id number] Acct: [id number] Name: OTRI GRAY Rep #:[id number] : 1980 45 From: Brett Quiroga MD PCP: Dr. Ivette Grimes MD Status:REG S DC Location: [place] [address]-1 HPI - General HPI Narrative TORI GRAY, is a 45 F who presents for left shoulder arthroscopy, subacromial decompression, debridement. no change to h and p. ok to proceed. rab, post op instructions, narcotic counselling. possible licodaine allergy, butafter discussion with anesthesia, the patient and the anesthesia provider have decided to proceed with a block. left shoulder marked. ok to proceed. MR#: [id number] Acct: [id number] Name: TORI GRAY Rep #: [id number] : 1980 Provider: Dr. 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 Supplemental Info [facility] Imaging Services [address] [place], [place] [address] Upper Ext Joint Only(Routine) MR#: [id number] Acct: [id number] Name: TORI GRAY Rep #: [id number] : 1980 F 44 From: Salazar Tyson MD PCP: Dr. Ivette Grimes MD Status: REG CLI Study: Upper Ext Joint Only(Routine) Date of Exam: 04/17/25 Exam# [id number] Ordering Dr: Brett Quiroga MD PROCEDURE: UPPER [...] subacromial subdeltoid bursa, with bursitis. [facility] independently reviewed the imaging. Concur with [...] blood flow before exercises. 4. Anti-Inflammatory Medications: Mqch-yxk-sbryzna medications like ibuprofen or naproxen can help [...] radial pulse. strength FE 4+, ER 5/5. [facility] Medical History Diabetes Fatty liver Gastric reflux [...] Dr. Ivette Grimes MD~ Signed [facility]08-20-2025 [facility]08-14-2025 [facility] [address] [place] [address] OFFICE VISIT Date of Service: 06/17/25 MR#: [id number] Acct: [id number] Name: TORI GRAY Rep #: [id number] : 1980 Provider: CONCEPCIÓN Rehman Age/Sex: 45/F Location: [facility] [place] Status: Signed Intake Vital Signs 05/06/25 10:04 [...] History mg/3 mL) subcutaneous pen injector (Ozempic) [facility] Medical History Diabetes Fatty liver Gastric reflux [...] CPT Codes Procedures - Manipulation: 3-4 regions (99280) Procedures - Traction, Mechanical: Yes (51939) 06/17/25 1005 .C.> Date _ Bibiana Rehman D.C. Cosigner Signature: Date (if applicable) CC: ~ [facility]08-14-2025 Progress note Author Bibiana Rehman [facility] Note Date/Time June 17, 2025 10 :05am [facility] [address] [place] [address] OFFICE VISIT Date of Service: 06/17/25 MR#: [id number] Acct: [id number] Name: TORI GRAY Rep #: [id number] : 1980 Provider: CONCEPCIÓN Rehman Age/Sex: 45/F Location: [facility] Status: Signed Intake Vital [...] History mg/3 mL) subcutaneous pen injector (Ozempic) [facility] Medical History Diabetes Fatty liver Gastric reflux [...] CPT Codes Procedures - Manipulation: 3-4 regions (93122) Procedures - Traction, Mechanical: Yes (86723) 06/17/25 1005 <Electronically signed by Bibiana Aguilar> Date _ Bibiana Rehman D.C. Cosigner Signature: Date (if applicable) CC: ~ [facility] Work Phone: 1([phone]) 123-268208-07-2025 Telephone encounter Note* Telephone Encounter - Little Murphy MA - 06/10/2025 2:17 PM EDT LDL Direct scanned to chart [facility]08-07-2025 Miscellaneous Notes* Telephone Encounter - Little Murphy MA - 06/10/2025 2:17 PM EDT LDL Direct scanned to chart * Telephone Encounter - Nirmala Storey LPN - 06/09/2025 12:53 PM EDT [employer] message sent to the patient. * Telephone Encounter - Ivette Grimes MD - 06/09/2025 10:48 AM EDT Lets increase the ozempic to 2 mg a day. Call sugars in two weeks. Watch the diet. * Telephone Encounter - Nirmala Storey LPN - 06/09/2025 10:20 AM EDT HgbA1C from [facility] 7.4 documented [facility]Kn[facility]25 Hospital Discharge instructionsAmbulatory Orders* 12 Lead EKG [[facility]] Time Frame: 06/10/25, Location: None Selected [facility] Work Phone: 1(597) 663-956608-06-2025 Telephone encounter Note* Telephone Encounter - Nirmala Storey LPN - 06/09/2025 12:53 PM EDT [employer] message sent to the patient. [facility]08-06-2025 Telephone encounter Note* Telephone Encounter - Ivette Grimes MD - 06/09/2025 10:48 AM EDT Lets increase the ozempic to 2 mg a day. Call sugars in two weeks. Watch the diet. [facility]08-06-2025 Telephone encounter Note* Telephone Encounter - Nirmala Storey LPN - 06/09/2025 10:20 AM EDT HgbA1C from [facility] 7.4 [facility]08-04-2025 NoteHNO ID: [id number] Author: IVETTE GRIMES MD Service: ? Author [...] for June [address] Quiroga at [facility]. - Follow-up appointment with Dr. Camacho for [...] 1 tablet by mouth once daily. Ipratropium Hadley (ATROVENT) 21 mcg (0.03 %) nasal spray [...] 1 Each by INTRAUTERINE route as directed. Lxiiwevw-Hi-Tga-Fe-FA tab Take 1 tablet by mouth once [...] Age of Onset Alcohol/Drug Mother Heart Father MO Cancer Father PANCREATIC CANCER Diabetes Father Coronary Artery Disease Father Anxiety disorder Sister Depression Sister Depression Brother Cancer Maternal Grandmother LUNG CANCER Diabetes Maternal Grandfather Heart Paternal Grandmother TRIPLE BYPASS SURGERY S (more content not included)...[facility]08-04-2025 History of Present illness Narrative* Ivette Grimes [...] for June [address] Quiroga at [facility]. - Follow-up appointment with Dr. Camacho for [...] 1 tablet by mouth once daily. Ipratropium Hadley (ATROVENT) 21 mcg (0.03 %) nasal spray [...] 1 Each by INTRAUTERINE route as directed. Ipdymkqn-Ly-Jwx-Fe-FA tab Take 1 tablet by mouth once [...] Age of Onset Alcohol/Drug Mother Heart Father [place] Cancer Father PANCREATIC CANCER Diabetes Father Coronary [...] Obesity, Class III, BMI 40-49.9 (morbid obesity) ([facility]) (E66.813) - Patient is physically active and maintains a balanced diet. 10. Headache, unspecified headache type (R51.9) - Migraines well-controlled; continues Topamax and gabapentin (reduced to once nightly). - Appointment scheduled for August 04 with Fatuma Cervantes to discuss resuming Botox treatment. 11. Encounter for screening mammogram for breast cancer (Z12.31) - Order for screening mammogram to be sent to [facility]. (See patient after visit summary for additional instructions to patient) Ivette Grimes MD Recording using [employer] software for draft documentation of the visit was discussed with the patient/authorized customer service representative; all questions welcomed and answered. Patient/authorized customer service representative agreed to proceed documented in this encounterKnox [facility] Hospital08-04-2025 Instructions* Patient Instructions* Ivette Grimes MD [...] with Dr. Quiroga on June 23 at [facility]. - Keep your neurology appointment on [...] any new concerns arise. documented in this encounterKn[facility]06-18-2025 Evaluation note* Diagnosis Onset Date Resolution [...] left shoulder acute July 09, 2025 9:21am [facility] Work Phone: 1(802) 191-434406-18-2025 Evaluation note* Diagnosis Onset Date Resolution Status [...] left shoulder acute August 05, 2025 9:12am [facility] Work Phone: 1(145) 417-100006-04-2025 Telephone encounter Note* Telephone Encounter - Ivette Grimes MD - 04/07/2025 3:34 PM EDT Requests refill. [facility]06-04-2025 Miscellaneous Notes* Telephone Encounter - Ivette Grimes MD - 04/07/2025 3:34 PM EDT Requests refill. documented in this encounterKn[facility]05-29-2025 Telephone encounter Note * Telephone Encounter - Nakia Caraballo RN - 04/01/2025 12:45 PM EDT Botox approved until 11/03/25. Patient and scheduling made aware. She is a patient of Fatuma's butdue to her being out on maternity leave, patient will need scheduled with another FÉLIX. Saw Amanda on03/09/25. Latonia Caraballo RN, BSN [facility] Work Phone: [phone] Miscellaneous Notes* Telephone Encounter - Nakia Caraballo RN - 04/01/2025 12:45 PM EDT Botox approved until 11/03/25. Patient and scheduling made aware. She is a patient of Fatuma's butdue to her being out on maternity leave, patient will need scheduled with another FÉLIX. Saw Amanda on03/09/25. Latonia Caraballo RN, BSN documented in this encounterKnox [facility] Hospital05-19-2025 Evaluation note* Diagnosis Onset Date Resolution [...] Complicated urinary tract infection acute July 05, 025 9:46pm Sepsis acute July 05, 2025 9:46pm Impingement of left shoulder acute July 09, 2025 9:21am [facility] Work Phone: 1([phone]) 389-932405-16-2025 Telephone encounter Note* Telephone Encounter - Nakia Caraballo RN - 03/19/2025 3:14 PM EDT Botox referral sent to pharmacy as patient would like to restart botox. Last botox 09/03/24. Latonia Caraballo RN, BSN [facility] Work Phone: 1([phone]) 750-952805-16-2025 Miscellaneous Notes* Telephone Encounter - Nakia Caraballo RN - 03/19/2025 3:14 PM EDT Botox referral sent to pharmacy as patient would like to restart botox. Last botox 09/03/24. Latonia Caraballo RN, BSN documented in this encounterKnox [facility] Hospital05-09-2025 Radiology Diagnostic study note [facility] Imaging Services [address] [place] [address] [id number] Shoulder min 2 Views MR#: [id number] Acct: [id number] Name: TORI GRAY Rep #: [id number] : 1980 F 44 From: Tameka Newsome MD PCP: Dr. Ivette Grimes MD Status: REG C EVER Study:Shoulder min 2 Views Date of Exam: 03/11/25 Exam# [id number] Ordering Dr: Brett Quiroga MD PROCEDURE: SHOULDER [...] Quiroga MD; Dr. Ivette Grimes MD ~ First Cook: Signed [facility]05-06-2025 Evaluation note* Diagnosis Onset Date Resolution Status Admit Date Segmental and somatic dysfunction of cervical region acute M ay 2024 9:17am Segmental and somatic dysfunction of lumbar region acute March 09, 2025 9:17am Segmental and somatic dysfunction of pelvic region acute March 09, 2025 9:17am Segmental and somatic dysfunction of thoracic region acute [facility] 2024 9:17am Disc displacement, lumbar chronic March 09, 2025 9:17am Left shoulder pain inactive March 222024 8:58am Back pain acute March 22, 2025 9:33am Segmental and somatic dysfunction of cervical region acute [facility] 2024 9:33am Segmental and somatic dysfunction of lumbar region acute March 22, 2025 9:33am Segmental and somatic dysfunction of pelvic region acute March 22, 2025 9:33am Segmental and somatic dysfunction of thoracic region acute [facility] 2024 9:33am Segmental and somatic dysfunction of [...] displacement, lumbar chronic June 17, 2025 9:27am [facility] Work Phone: 1([phone]) 274-229105-06-2025 Evaluation note* Diagnosis Onset Date Resolution Status [...] and somatic dysfunction of lumbar region acute [facility] 2024 10:30am Segmental and somatic dysfunction of pelvic region acute [facility] 2024 10:30am Segmental and somatic dysfunction of thoracic [...] acute June 23, 2025 6:20am [facility] Work Phone: 1([phone]) 574-176505-06-2025 Evaluation note* Diagnosis Onset Date Resolution Status Admit Date Segmental and somatic dysfunction of cervical region acute [facility] 2024 9:17am Segmental and somatic dysfunction of lumbar region acute March 09, 2025 9:17am Segmental and somatic dysfunction of pelvic region acute March 09, 2025 9:17am Segmental and somatic dysfunction of thoracic region acute [facility] 2024 9:17am Disc displacement, lumbar chronic March 09, 2025 9:17am Left shoulder pain inactive March 222024 8:58am Back pain acute March 22, 2025 9:33am Segmental and somatic dysfunction of cervical region acute [facility] 2024 9:33am Segmental and somatic dysfunction of lumbar region acute March 22, 2025 9:33am Segmental and somatic dysfunction of pelvic region acute March 22, 2025 9:33am Segmental and somatic dysfunction of thoracic region acute [facility] 2024 9:33am Segmental and somatic dysfunction of [...] left shoulder acute June 25, 2025 9:12am [facility] Work Phone: [phone] 701-970105-06-2025 Evaluation note* Diagnosis Onset Date Resolution Status [...] Complicated urinary tract infection acute July 05, 9:46pm Sepsis acute July 05, 2025 9:46pm [facility] Work Phone: [phone] History of Present illness Narrative* Amanda Arteaga PA-C - 03/09/2025 7:25 AM EDT Images from the original note were not included. [facility] New Patient Evaluation [...] visit. Either the patient or their legal customer service representative has been informed of the risks and benefits of -- and alternatives to -- treatment through a remote evaluation andconsents to proceed with the evaluation remotely. Confirmed verbally that the patient currently located in the [facility].Yes Confirmed verbally that the patient consents to being seen virtually today.Yes Confirmed verbally that the patient consents to being seen by a physician printer floor covering assistant.Yes CHIEF COMPLAINT: Botox for migraines Tori [...] 1 tablet by mouth once daily. Ipratropium Hadley (ATROVENT) 21 mcg (0.03 %) nasal spray [...] 1 Each by INTRAUTERINE route as directed. [place]-3 Fatty Acids (FISH OIL) 500 mg cap Take 1 capsule by mouth once daily. blood sugar diagnostic (BLOOD GLUCOSE TEST) test strip Test blood sugar(s) 1 times daily. Dx: Type 2 DM - Controlled E11.9 Insulin: Yes Lancets lancets Test blood sugar(s) 1 times daily. Dx: Type 2 DM - Controlled E11.9 Insulin: No Fejzplwd-Re-Ugr-Fe-FA tab Take 1 tablet by mouth once [...] which included preparing to see the patient, igcp-bc-pwfr patient care, completing clinical documentation, obtaining and/or [...] (Sleep study not recommended) documented in this encounterKn[facility] Hospital05-06-2025 NoteHNO ID: [id number] Author: AMANDA ARTEAGA PA-C Service: ? Author Type: Physician Manager Lean Type: Progress Notes Filed: 03/10/2025 07:59 Note Text: [facility] New Patient Evaluation [...] visit. Either the patient or their legal customer service representative has been informed of the risks and benefits of -- and alternatives to -- treatment through a remote evaluation and consents to proceed with the evaluation remotely. Confirmed verbally that the patient currently located in the state of [place].Yes Confirmed verbally that the patient consents to being seen virtually today.Yes Confirmed verbally that the patient consents to being seen by a physician printer floor covering assistant.Yes CHIEF COMPLAINT: Botox for migraines Tori [...] time -Irma 15 a (more content not included)...[facility]05-01-2025 Telephone encounter Note* Telephone Encounter - Beata Pitts LPN - 03/04/2025 2:41 PM EDT Tried contacting patient to confirm that she just wants to discuss botox rather than get injectionsfor her upcoming appt as it's a virtual visit, per [place]. Beata Pitts LPN March 04, 2025 2:42 PM [facility]05-01-2025 Miscellaneous Notes* Telephone Encounter - Beata Pitts LPN - 03/04/2025 2:41 PM EDT Tried contacting patient to confirm that she just wants to discuss botox rather than get injectionsfor her upcoming appt as it's a virtual visit, per [place]. Beata Pitts LPN March 04, 2025 2:42 PM documented in this encounterKnox [facility] Hospital04-29-2025 History of Present illness Narrative* Ivette Grmies MD - 03/02/2025 10:40 AM EDT Patient [...] visit. Either the patient or their legal customer service representative has been informed of the risks [...] like me to send over referral at [facility]. They specialize in shoulders. Seen at optometry at [facility] for dilated vision check on February 04. [...] 1 tablet by mouth once daily. Ipratropium Hadley (ATROVENT) 21 mcg (0.03 %) nasal spray [...] 1 Each by INTRAUTERINE route as directed. [place]-3 Fatty Acids (FISH OIL) 500 mg cap Take 1 capsule by mouth once daily. blood sugar diagnostic (BLOOD GLUCOSE TEST) test strip Test blood sugar(s) 1 times daily. Dx: Type 2 DM - Controlled E11.9 Insulin: Yes Lancets lancets Test blood sugar(s) 1 times daily. Dx: Type 2 DM - Controlled E11.9 Insulin: No Xobeqdnf-Dt-Zzn-Fe-FA tab Take 1 tablet by mouth once [...] Age of Onset Alcohol/Drug Mother Heart Father MO Cancer Father PANCREATIC CANCER Diabetes Father Coronary [...] ORTHOPAEDICS Ivette Grimes MD documented in this encounterKnox [facility] Hospital04-29-2025 NoteHNO ID: [id number] Author: IVETTE GRIMES MD Service: ? Author [...] visit. Either the patient or their legal customer service representative has been informed of the risks [...] like me to send over referral at [facility]. They specialize in shoulders. Seen at optometry at [facility] for dilated vision check on February 04. [...] 1 tablet by mouth once daily. Ipratropium Hadley (ATROVENT) 21 mcg (0.03 %) nasal spray [...] 1 Each by INTRAUTERINE route as directed. [place]-3 Fatty Acids (FISH OIL) 500 mg cap Take 1 capsule by mouth once daily. blood sugar diagnostic (BLOOD GLUCOSE TEST) test strip Test blood sugar(s) 1 times daily. Dx: Type 2 DM - Controlled E11.9 Insulin: Yes Lancets lancets Test blood sugar(s) 1 times daily. Dx: Type 2 DM - Controlled E11.9 Insulin: No Riegfnxb-Oa-Dgs-Fe-FA tab Take 1 tablet by mouth once [...] Age of Onset Alcohol/Drug Mother Heart Father MO Cancer Father PANCREATIC CANCER Diabetes Father Coronary Artery Disease Father Anxiety disorder Sister Depression Sister Depression Brother Cancer Maternal Grandmother LUNG CANCER Diabetes Maternal Grandfather Heart Paternal Grandmother TRIPLE BYPASS SURGERY Social History Tobacco Use Smoking status: Never Smokeless tobacco: Never Vaping Use Vaping status: Never Used Substance Use Topics Alcohol use (more content not included)...[facility]04-03-2025 Evaluation note* Diagnosis Onset Date Resolution Status [...] chronic March 09, 2025 9:17am [facility] Work Phone: 1([phone]) [phone] Evaluation note* Diagnosis Onset Date Resolution Status [...] Left shoulder pain inactive March 222024 8:58am [facility] Work Phone: 1([phone]) 447-511304-03-2025 Evaluation note* Diagnosis Onset Date Resolution Status [...] somatic dysfunction of thoracic region acute [facility] 2024 9:33am [facility] Work Phone: [phone]) 295-868004-03-2025 Evaluation note* Diagnosis Onset Date Resolution Status [...] somatic dysfunction of thoracic region acute [facility] 2024 9:17am Disc displacement, lumbar chronic March 09, 2025 9:17am Left shoulder pain inactive March 222024 8:58am Back pain acute March 22, 2025 9:33am Segmental and somatic dysfunction of cervical region acute [facility] 2024 9:33am Segmental and somatic dysfunction of lumbar region acute March 22, 2025 9:33am Segmental and somatic dysfunction of pelvic region acute March 22, 2025 9:33am Segmental and somatic dysfunction of thoracic region acute [facility] 2024 9:33am Segmental and somatic dysfunction of [...] region suspected April 05, 2025 1 0:22am [facility] Work Phone: 1([phone]) 164-245604-03-2025 Evaluation note* Diagnosis Onset Date Resolution Status [...] displacement, lumbar chronic April 21, 2025 9:49am [facility] Work Phone: [phone]) [phone] Evaluation note* Diagnosis Onset Date Resolution Status [...] Left shoulder pain inactive May 062024 10:02am [facility] Work Phone: [phone]) [phone] Evaluation note* Diagnosis Onset Date Resolution Status [...] somatic dysfunction of cervical region acute [facility] 2024 10:22am Segmental and somatic dysfunction of lumbar region acute [facility] 2024 10:22am Segmental and somatic dysfunction of pelvic region acute Apr 10:22am Segmental and somatic dysfunction of thoracic region acute [facility] 2024 10:22am Disc displacement, lumbar chronic April 05, 2025 10:22am Segmental and somatic dysfunction of cervical region acute J [facility] 2024 9:49am Segmental and somatic dysfunction of lumbar region acute [facility] 2024 9:49am Segmental and somatic dysfunction of [...] displacement, lumbar chronic June 01, 2025 10:30am [facility] Work Phone: 1([phone] 520-445004-02-2025 Telephone encounter Note* Telephone Encounter - Evon [...] her know when it is ready for pick and shovel worker. [facility]04-02-2025 Miscellaneous Notes* Telephone Encounter - [...] her know when it is ready for pick and shovel worker. * Telephone Encounter - Mirna Santos MA - 02/01/2025 2:42 PM EDT Faxed form completed to [employer] with A1C and office note Mirna Santos MA * Telephone Encounter - Evon Philippe LPN - 01/29/2025 8:31 AM EDT [employer] RESPONSE. [employer] does not handle this review. Please visit [email or web address] to start a prior authorization or fax information to [phone]. Please include all supporting chart notes. You may contact [employer] at [phone]. WILL FAX PA REQUEST TO NUMBER PROVIDED. [...] needs PA due to dose change). Provider: [employer] Name: [facility] Phone number: [phone] Patient ID number: [id number] Pharmacy Name: [facility] Telephone number: [phone] documented in this encounterKnox [facility] Hospital03-31-2025 Telephone encounter Note * Telephone Encounter - Mirna Santos MA - 02/01/2025 2:42 PM EDT Faxed form completed to [employer] with A1C and office note Mirna Santos MA [facility]03-28-2025 Telephone encounter Note* Telephone Encounter - Evon Philippe LPN - 01/29/2025 8:31 AM EDT [employer] RESPONSE. [employer] does not handle this review. Please visit [email or web address] to start a prior authorization or fax information to [phone]. Please include all supporting chart notes. You may contact [facility] [facility] at [phone]. WILL FAX PA REQUEST TO NUMBER PROVIDED. Records faxed to for PA. [facility]03-27-2025 Telephone encounter Note* Telephone Encounter - Evon Philippe LPN - 01/28/2025 4:56 PM EDT Unable to complete electronically. Will try on covermymeds [facility]03-27-2025 Telephone encounter Note* Telephone Encounter - Evon Philippe LPN - 01/28/2025 4:55 PM EDT Electronic PA requested. [facility]03-27-2025 Telephone encounter Note* Telephone Encounter - Krystle Barnett RN - 01/28/2025 4:51 PM EDT Prior Authorization Documentation Prior authorization requested for the following medication: Medication: Ozempic 1 mg (all though PA done in Aug 2024 and approved until Aug 2025 this needs PA due to dose change). Provider: [employer] Name: [facility] [employer] Phone number: [phone] Patient ID number: [id number] Pharmacy Name: [facility] Telephone number: [phone] [facility]03-27-2025 Telephone encounter Note* Telephone Encounter - Dennise Robles MA - 01/28/2025 8:45 AM EDT Scan on 01/28/2025 8:29 AM by ProviderSherry PA-C: BMP Scan on 01/28/2025 8:17 AM by ProviderSherry PA-C: HGB A1C [facility]03-27-2025 Miscellaneous Notes* Telephone Encounter - Dennise Robles MA - 01/28/2025 8:45 AM EDT Scan on 01/28/2025 8:29 AM by ProviderSherry PA-C: BMP Scan on 01/28/2025 8:17 AM by Sherry Mccallum PA-C: HGB A1C documented in this encounterKnox Community Hospital03-21-2025 NoteHNO ID: [id number] Author: IVETTE GRIMES MD Service: ? Author [...] 1 tablet by mouth once daily. Ipratropium Hadley (ATROVENT) 21 mcg (0.03 %) nasal spray [...] 1 Each by INTRAUTERINE route as directed. [place]-3 Fatty Acids (FISH OIL) 500 mg cap Take 1 capsule by mouth once daily. blood sugar diagnostic (BLOOD GLUCOSE TEST) test strip Test blood sugar(s) 1 times daily. Dx: Type 2 DM - Controlled E11.9 Insulin: Yes Lancets lancets Test blood sugar(s) 1 times daily. Dx: Type 2 DM - Controlled E11.9 Insulin: No Iehrxfqb-Km-Rvc-Fe-FA tab Take 1 tablet by mouth once [...] Age of Onset Alcohol/Drug Mother Heart Father [place] Cancer Father PANCREATIC CANCER Diabetes Father Coronary [...] Wt Readings: Date: Wt: (more content not included)...[facility]03-21-2025 History of Present illness Narrative* Ivette Grimes [...] 1 tablet by mouth once daily. Ipratropium Hadley (ATROVENT) 21 mcg (0.03 %) nasal spray [...] 1 Each by INTRAUTERINE route as directed. [place]-3 Fatty Acids (FISH OIL) 500 mg cap Take 1 capsule by mouth once daily. blood sugar diagnostic (BLOOD GLUCOSE TEST) test strip Test blood sugar(s) 1 times daily. Dx: Type 2 DM - Controlled E11.9 Insulin: Yes Lancets lancets Test blood sugar(s) 1 times daily. Dx: Type 2 DM - Controlled E11.9 Insulin: No Wkqrhlly-Vi-Apc-Fe-FA tab Take 1 tablet by mouth once [...] Age of Onset Alcohol/Drug Mother Heart Father [place] Cancer Father PANCREATIC CANCER Diabetes Father Coronary [...] six months and prn. documented in this encounterKnox [facility] Hospital02-21-2025 Telephone encounter Note * Telephone [...] Storey LPN December 25, 2024 8:58 AM [facility]02-21-2025 Miscellaneous Notes* Telephone Encounter - [...] 25, 2024 8:58 AM documented in this encounterKnox Community Hospital02-17-2025 Telephone encounter Note * Telephone Encounter - Jumana Harrell LPN - 12/21/2024 3:19 PM EST Patient notified of results, verbalizes understanding of instructions. Pt stated she is about 80% better with the z-pack and cough drops. Will call is get worse again. Jumana Harrell LPN [facility]02-17-2025 Miscellaneous Notes* Telephone Encounter - [...] symptoms improved with the zpack? Jenni Jain APRN.GABRIELA documented in [facility] encounterKn[facility] Telephone encounter Note * Telephone [...] symptoms improved with the zpack? Jenni Jain APRN.GABRIELA [facility] Work Phone: 1(120) 521-914602-07-2025 Telephone encounter Note* Telephone Encounter - Jumana Harrell LPN - 12/11/2024 2:24 PM EST Patient notified of results, verbalizes understanding of instructions. Jumana Harrell LPN [facility]02-07-2025 Miscellaneous Notes* Telephone Encounter - Jumana Harrell LPN - 12/11/2024 2:24 PM EST Patient notified of results, verbalizes understanding of instructions. Jumana Harrell LPN * Telephone Encounter - Jenni Jain APRN.CNP - 12/11/2024 2:16 PM EST Can you please call the patient and let her know that I am still waiting for x- ray results from [facility]. I went ahead and sent in [...] Provider: JENNI JAIN APRN.CNP documented in this encounterKn[facility]02-[facility]25 Telephone encounter Note * Telephone Encounter - Jenni Jain APRN.CNP - 12/11/2024 2:16 PM EST Can you please call the patient and let her know that I am still waiting for x- ray results from [facility]. I went ahead and sent in [...] until gone. Authorizing Provider: JENNI JAIN APRN.CNP [facility]02-07-2025 Instructions* Patient Instructions* Jenni Jain APRN.CNP - 12/11/2024 11:32 AM EST Get chest xray completed today May use Codeine cough syrup as needed for cough Stay well hydrated Follow up pending test results. documented in this encounterKn[facility] Hospital02-07-2025 History of Present illness Narrative* [...] 1 tablet by mouth once daily. Ipratropium Hadley (ATROVENT) 21 mcg (0.03 %) nasal spray [...] 1 Each by INTRAUTERINE route as directed. [place]-3 Fatty Acids (FISH OIL) 500 mg cap Take 1 capsule by mouth once daily. blood sugar diagnostic (BLOOD GLUCOSE TEST) test strip Test blood sugar(s) 1 times daily. Dx: Type 2 DM - Controlled E11.9 Insulin: Yes Lancets lancets Test blood sugar(s) 1 times daily. Dx: Type 2 DM - Controlled E11.9 Insulin: No Btpjdqpn-Ln-Tge-Fe-FA tab Take 1 tablet by mouth once daily. No current facility-administered medications for this visit. FAMILY HISTORY Problem Relation Age of Onset Alcohol/Drug Mother Heart Father [place] Cancer Father PANCREATIC CANCER Diabetes Father Coronary [...] were discussed and patient voices understanding. Jenni aJin APRN.CNP This note was partially generated using WiMi5 voice recognition system. Note was reviewed for accuracy. There may be minor misspellings or grammar miscues with WiMi5 voice recognition. documented in this encounterKnox [facility] Hospital02-07-2025 NoteHNO ID: [id number] Author: JENNI JAIN APRN.CNP Service: ? Author [...] 1 tablet by mouth once daily. Ipratropium Hadley (ATROVENT) 21 mcg (0.03 %) nasal spray [...] 1 Each by INTRAUTERINE route as directed. [place]-3 Fatty Acids (FISH OIL) 500 mg cap Take 1 capsule by mouth once daily. blood sugar diagnostic (BLOOD GLUCOSE TEST) test strip Test blood sugar(s) 1 times daily. Dx: Type 2 DM - Controlled E11.9 Insulin: Yes Lancets lancets Test blood sugar(s) 1 times daily. Dx: Type 2 DM - Controlled E11.9 Insulin: No Rebmkkji-Pe-Atb-Fe-FA tab Take 1 tablet by mouth once daily. No current facility-administered medications for this visit. FAMILY HISTORY Problem Relation Age of Onset Alcohol/Drug Mother Heart Father MO Cancer Father PANCREATIC CANCER Diabetes Father Coronary [...] : No history o (more content not included)...[facility] 12-11-2024 Telephone encounter Note* Telephone Encounter - Brittney Meredith RN - 12/11/2024 8:17 AM EST Patient calling to make appt for evaluation of respiratory sx's that began approx 4 weeks ago. Pt states she feels she may have bronchitis or pneumonia. States she was at [facility] ER last month due to dizziness, [...] evaluation of respiratory sx's. Brittney Meredith RN [facility]02-07-2025 Miscellaneous Notes* Telephone Encounter - Brittney Meredith RN - 12/11/2024 8:17 AM EST Patient calling to make appt for evaluation of respiratory sx's that began approx 4 weeks ago. Pt states she feels she may have bronchitis or pneumonia. States she was at [facility] ER last month due to dizziness, [...] sx's. Brittney Meredith RN documented in this encounterKn[facility] Hospital01-22-2025 Telephone encounter Note * Telephone [...] Eric LPN November 25, 2024 2:23 PM [facility]01-22-2025 Miscellaneous Notes* Telephone Encounter - [...] Thank you. Stephanie Parsons. documented in this encounterKnox [facility] Hospital01-22-2025 Telephone encounter Note * Telephone [...] found Please advise. Thank you. Stephanie Parsons. [facility]01-20-2025 Telephone encounter Note* Telephone Encounter [...] Judith Cueto November 23, 2024 12:34 PM [facility]01-20-2025 Miscellaneous Notes* Telephone Encounter - [...] 23, 2024 12:34 PM documented in this encounterKnox [facility] Hospital01-14-2025 NotePatient Outreach (FAMPWS) TORI GRAY ([id number]) 1980 F Date Time Provider Department 11[facility] your visit today, we recorded [...] for screening mammogram for breast cancer [Z12.31] Order(s):[facility] SCREENING [facility] JAQUELIN [[id number]] Order #: [id number] FUTURE Prescriptions as of 12/18/2024 - potassium [...] tablet by mouth once daily. - Ipratropium Hadley (ATROVENT) 21 mcg (0.03 %) nasal spray [...] Each by INTRAUTERINE route as directed. - [place]-3 Fatty Acids (FISH OIL) 500 mg cap Take 1 capsule by mouth once daily. - blood sugar diagnostic (BLOOD GLUCOSE TEST) test strip Test blood sugar(s) 1 times daily. Dx: Type 2 DM - Controlled E11.9 Insulin: Yes - Lancets lancets Test blood sugar(s) 1 times daily. Dx: Type 2 DM - Controlled E11.9 Insulin: No - Dclkocfc-Qz-Pzj-Fe-FA tab Take 1 tablet by mouth once [...] 05/06/2009 01/23/2010 Routine general medical examination at [facility]*01/23/2010 12/06/2012 Class: Chronic Routine gynecological examination [Z01.419] 01/23/2010 02/22/2014 Class: Chronic Morbid Obesity [E66.01] 01/23/2010 Lumbar Disc Disorder [M51.9] 02/16/2010 Routine general medical examination at [facility]*12/06/2012 02/22/2014 Anxiety [F41.9] 06/07/2014 Type 2 [...] type 2 diabetes m (more content not included)...[facility]12-23-2024 Telephone encounter Note* Telephone Encounter - Priscila [...] France RN October 26, 2024 7:53 PM [facility]12-23-2024 Miscellaneous Notes* Telephone Encounter - [...] 26, 2024 7:53 PM documented in this encounterKnox Community Hospital12-16-2024 History of Present illness Narrative* [...] visit. Either the patient or their legal customer service representative has been informed of the risks [...] hours asneeded for wheezing/shortness of breath. Ipratropium Hadley (ATROVENT) 21 mcg (0.03 %) nasal spray [...] 1 Each by INTRAUTERINE route as directed. [place]-3 Fatty Acids (FISH OIL) 500 mg cap Take 1 capsule by mouth once daily. blood sugar diagnostic (BLOOD GLUCOSE TEST) test strip Test blood sugar(s) 1 times daily. Dx: Type 2 DM - Controlled E11.9 Insulin: Yes Lancets lancets Test blood sugar(s) 1 times daily. Dx: Type 2 DM - Controlled E11.9 Insulin: No Wronidrk-Sa-Vmf-Fe-FA tab Take 1 tablet by mouth once [...] mirena LAPAROSCOPY SURG CHOLECYSTECTOMY 2006 Cholecystectomy, lap (Row[facility] Monet) PAST SURGICAL HISTORY OF 2019 stent into kidney REMOVE IUD 07/13/2010 FAMILY HISTORY Problem Relation Age of Onset Alcohol/Drug Mother Heart Father [place] Cancer Father PANCREATIC CANCER Diabetes Father Coronary [...] TABLET Ivette Grimes MD documented in this encounterKnox Community Hospital12-16-2024 NoteHNO ID: [id number] Author: IVETTE GRIMES MD Service: ? Author [...] visit. Either the patient or their legal customer service representative has been informed of the risks [...] as needed for wheezing/shortness of breath. Ipratropium Hadley (ATROVENT) 21 mcg (0.03 %) nasal spray [...] 1 Each by INTRAUTERINE route as directed. [place]-3 Fatty Acids (FISH OIL) 500 mg cap Take 1 capsule by mouth once daily. blood sugar diagnostic (BLOOD GLUCOSE TEST) test strip Test blood sugar(s) 1 times daily. Dx: Type 2 DM - Controlled E11.9 Insulin: Yes Lancets lancets Test blood sugar(s) 1 times daily. Dx: Type 2 DM - Controlled E11.9 Insulin: No Plonwfrb-Sn-Iqb-Fe-FA tab Take 1 tablet by mouth once [...] Age of Onset Alcohol/Drug Mother Heart Father [place] Cancer Father PANCREATIC CANCER Diabetes Father Coronary [...] wheeze. No pallor. ASSESSM (more content not included)...[facility]12-16-2024 Evaluation note* Diagnosis Onset Date Resolution Status Admit Date Segmental and somatic dysfunction of lumbar region acute Oct 8:57am Segmental and somatic dysfunction of pelvic region acute Oct 8:57am Segmental and somatic dysfunction of thoracic region acute October 19, 024 8:57am Disc displacement, lumbar chronic October 19, 2024 8:57am [facility] Work Phone: 1(734) 899-432511-21-2024 History of Present illness Narrative* Ivette Grimes [...] visit. Either the patient or their legal customer service representative has been informed of the risks [...] No increased caffeine. Sugars are increased recently [phone]=817's. Not coming down as much as it [...] hours asneeded for wheezing/shortness of breath. Ipratropium Hadley (ATROVENT) 21 mcg (0.03 %) nasal spray [...] 1 Each by INTRAUTERINE route as directed. [place]-3 Fatty Acids (FISH OIL) 500 mg cap Take 1 capsule by mouth once daily. blood sugar diagnostic (BLOOD GLUCOSE TEST) test strip Test blood sugar(s) 1 times daily. Dx: Type 2 DM - Controlled E11.9 Insulin: Yes Lancets lancets Test blood sugar(s) 1 times daily. Dx: Type 2 DM - Controlled E11.9 Insulin: No Wzfkxret-Rp-Gco-Fe-FA tab Take 1 tablet by mouth once [...] Age of Onset Alcohol/Drug Mother Heart Father MO Cancer Father PANCREATIC CANCER Diabetes Father Coronary [...] weeks Ivette Grimes MD documented in this encounterKnox [facility] Hospital11-21-2024 NoteHNO ID: [id number] Author: IVETTE GRIMES MD Service: ? Author [...] visit. Either the patient or their legal customer service representative has been informed of the risks [...] No increased caffeine. Sugars are increased recently 440=767's. Not coming down as much as it [...] as needed for wheezing/shortness of breath. Ipratropium Hadley (ATROVENT) 21 mcg (0.03 %) nasal spray [...] 1 Each by INTRAUTERINE route as directed. [place]-3 Fatty Acids (FISH OIL) 500 mg cap Take 1 capsule by mouth once daily. blood sugar diagnostic (BLOOD GLUCOSE TEST) test strip Test blood sugar(s) 1 times daily. Dx: Type 2 DM - Controlled E11.9 Insulin: Yes Lancets lancets Test blood sugar(s) 1 times daily. Dx: Type 2 DM - Controlled E11.9 Insulin: No Qashigwp-Jn-Opo-Fe-FA tab Take 1 tablet by mouth once [...] Age of Onset Alcohol/Drug Mother Heart Father [place] Cancer Father PANCREATIC CANCER Diabetes Father Coronary [...] Wt Readings: Date: Wt: (more content not included)...[facility]10-31-2024 Instructions* Patient Instructions* Fatuma Beckford PA-C - [...] office for further instructions. 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 Fatuma Beckford PA-C documented in this encounterKnox [facility] Hospital10-29-2024 Telephone encounter Note * Telephone Encounter - Rebecca Baker - 09/01/2024 4:08 PM EDT Tori was Ok'ed to get her botox appointment moved into a new patient time due to frequent rescheduling of this visit. She is now scheduled for , 09/03. She has also requested a refill of her Nurtec ODT medication. Please adviseRebecca [facility]10-29-2024 Miscellaneous Notes* Telephone Encounter - Rebecca Baker - 09/01/2024 4:08 PM EDT Tori was Ok'ed to get her botox appointment moved into a new patient time due to frequent rescheduling of this visit. She is now scheduled for , 09/03. She has also requested a refill of her Nurtec ODT medication. Please advise, Rebecca Baker documented in this encounterKnox [facility] Hospital10-29-2024 Telephone encounter Note * Telephone [...] with this date and time. Rebecca Baker [facility]10-29-2024 Miscellaneous Notes* Telephone Encounter - [...] Nieto - 09/01/2024 3:30 PM EDT 09/10 [place] appt rescheduled to 10/08 and put on wait list. Provider will be out of office. 1st attempt to notify pt, sent MC message. documented in this encounterKnox [facility] Hospital10-29-2024 Telephone encounter Note * Telephone Encounter - Tala Wilson - 09/01/2024 3:54 PM EDT Patient read mychart [facility]10-29-2024 Telephone encounter Note* Telephone Encounter - Steph Nieto - 09/01/2024 3:30 PM EDT 09/10 [place] appt rescheduled to 10/08 and put on wait list. Provider will be out of office. 1st attempt to notify pt, sent MC message. [facility]10-08-2024 Telephone encounter Note* Telephone Encounter - Steph Nieto - 08/11/2024 3:58 PM EDT Pt read MC message. [facility]10-08-2024 Miscellaneous Notes* Telephone Encounter - Steph Nieto - 08/11/2024 3:58 PM EDT Pt read MC message. * Telephone Encounter - Steph Nieto - 08/11/2024 3:32 PM EDT [place] appt on 09/10 moved to 3 PM. 1st attempt to notify pt, sent MC message. documented in this encounterKnox [facility] Hospital10-08-2024 Telephone encounter Note * Telephone Encounter - Steph Nieto - 08/11/2024 3:32 PM EDT [place] appt on 09/10 moved to 3 PM. 1st attempt to notify pt, sent MC message. [facility]10-08-2024 Telephone encounter Note* Telephone Encounter [...] Salmon MA August 11, 2024 11:06 AM [facility]10-08-2024 Miscellaneous Notes* Telephone Encounter - Ingird Salmon MA - 08/11/2024 11:06 AM EDT [...] 11, 2024 11:06 AM documented in this encounterKnox [facility] Hospital10-03-2024 Telephone encounter Note * Telephone Encounter - Dennise Robles MA - 08/06/2024 10:38 AM EDT APPROVAL. [employer]AGE. EOC # [id number] VALIDITY DATES 08/06/24-08/05/25 Pharmacy informed. Dennise Robles MA [facility]10-03-2024 Miscellaneous Notes* Telephone Encounter - Dennise Robles MA - 08/06/2024 10:38 AM EDT APPROVAL. [employer]AGE. EOC # [id number] VALIDITY DATES 08/06/24-08/05/25 Pharmacy informed. 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 Excited for this because will not be as physical. Reviewed labs recently done at [facility]. A1c was 6.7. ldl was 105. [...] hours asneeded for wheezing/shortness of breath. Ipratropium Hadley (ATROVENT) 21 mcg (0.03 %) nasal spray [...] 1 Each by INTRAUTERINE route as directed. [place]-3 Fatty Acids (FISH OIL) 500 mg cap Take 1 capsule by mouth once daily. blood sugar diagnostic (BLOOD GLUCOSE TEST) test strip Test blood sugar(s) 1 times daily. Dx: Type 2 DM - Controlled E11.9 Insulin: Yes Lancets lancets Test blood sugar(s) 1 times daily. Dx: Type 2 DM - Controlled E11.9 Insulin: No Pvbrhfxd-Xr-Hyc-Fe-FA tab Take 1 tablet by mouth once [...] Age of Onset Alcohol/Drug Mother Heart Father [place] Cancer Father PANCREATIC CANCER Diabetes Father Coronary [...] stable. Ivette Grimes MD documented in this encounterKnox Community Hospital09-23-2024 Telephone encounter Note * Telephone [...] Yoon LPN July 27, 2024 8:45 AM [facility]09-23-2024 Miscellaneous Notes* Telephone Encounter - [...] 27, 2024 8:45 AM documented in this encounterKnox Community Hospital09-17-2024 Telephone encounter Note * Telephone Encounter - Ingrid Salmon MA - 07/21/2024 3:02 PM EDT Pt notified. Requested to have order faxed to [facility]. Order faxed. Ingrid Salmon MA [facility]09-17-2024 Miscellaneous Notes* Telephone Encounter - Ingrid Salmon MA - 07/21/2024 3:02 PM EDT Pt notified. Requested to have order faxed to [facility]. Order faxed. Ingrid Salmon MA * [...] advise, Gale Bower RN documented in this encounterKnox Community Hospital09-17-2024 Telephone encounter Note * Telephone Encounter - Ivette Grimes MD - 07/21/2024 2:18 PM EDT ordered [facility]09-17-2024 Telephone encounter Note* Telephone Encounter - Gale Bower RN - 07/21/2024 1:45 PM EDT Patient calls and states that cough is not getting any better. Patient states that Dr. Grimes had told her that if cough had not improved that provider wanted to order her a chest xray. Please review and advise, Gale Bower RN [facility]09-06-2024 Telephone encounter Note* Telephone Encounter - Nirmala Storey LPN - 07/10/2024 11:16 AM EDT Left detailed message for patient. [facility]09-06-2024 Miscellaneous Notes* Telephone Encounter - [...] advise, Gale Bower RN documented in this encounterKnox Community Hospital09-06-2024 Telephone encounter Note * Telephone Encounter - Ivette Grimes MD - 07/10/2024 11:11 AM EDT Rx sent for farxiga. Lets try this Call sugars in two weeks. [facility]09-05-2024 Telephone encounter Note* Telephone Encounter - Gale Bower RN - 07/09/2024 4:34 PM EDT Patient calls and wanted provider to know that she has not been taking Trulicity since the of June. Patient states that every time [...] Please review and advise, Gale Bower RN [facility]09-04-2024 Telephone encounter Note* Telephone Encounter - Ivette Grimes MD - 07/08/2024 2:03 PM EDT noted [facility]09-04-2024 Miscellaneous Notes* Telephone Encounter - Ivette Grimes MD - 07/08/2024 2:03 PM EDT noted * Telephone Encounter - Dennise Robles MA - 07/08/2024 1:13 PM EDT Labs in chart review. Dennise Robles MA documented in this encounterKnox [facility] Hospital09-04-2024 Telephone encounter Note * Telephone Encounter - Dennise Robles MA - 07/08/2024 1:13 PM EDT Labs in chart review. Dennise Robles MA [facility]08-30-2024 History of Present illness Narrative* Ivette [...] hours asneeded for wheezing/shortness of breath. Ipratropium Hadley (ATROVENT) 21 mcg (0.03 %) nasal spray [...] 1 Each by INTRAUTERINE route as directed. [place]-3 Fatty Acids (FISH OIL) 500 mg cap Take 1 capsule by mouth once daily. blood sugar diagnostic (BLOOD GLUCOSE TEST) test strip Test blood sugar(s) 1 times daily. Dx: Type 2 DM - Controlled E11.9 Insulin: Yes Lancets lancets Test blood sugar(s) 1 times daily. Dx: Type 2 DM - Controlled E11.9 Insulin: No Vihwmxhx-Db-Cia-Fe-FA tab Take 1 tablet by mouth once [...] Age of Onset Alcohol/Drug Mother Heart Father [place] Cancer Father PANCREATIC CANCER Diabetes Father Coronary [...] follow up or prn documented in this encounterKnox [facility] Hospital08-24-2024 Telephone encounter Note * Telephone [...] Lazo LPN June 27, 2024 11:35 AM [facility]08-24-2024 Miscellaneous Notes* Telephone Encounter - [...] 27, 2024 11:35 AM documented in this encounterKnox Community Hospital08-24-2024 Telephone encounter Note * Telephone [...] Lazo LPN June 27, 2024 11:29 AM [facility]08-24-2024 Miscellaneous Notes* Telephone Encounter - [...] 27, 2024 11:29 AM documented in this encounterKnox Community Hospital08-08-2024 Telephone encounter Note * Telephone Encounter - Lubna De La Garza APRN.GABRIELA - 06/11/2024 12:40 PM EDT Tessalon Perles were ordered. [facility]08-08-2024 Miscellaneous Notes* Telephone Encounter - Lubna De La Garza APRN.CNP - 06/11/2024 12:40 PM EDT Tessalon Perles were ordered. * Telephone Encounter - Ingrid Salmon MA - 06/11/2024 12:25 PM EDT See [employer] message documented in this encounterKnox Community Hospital08-08-2024 Telephone encounter Note * Telephone Encounter - Ingrid Salmon MA - 06/11/2024 12:25 PM EDT See [employer] message [facility]08-01-2024 Telephone encounter Note* Telephone Encounter - Claribel Wright LPN - 06/04/2024 3:37 PM EDT Prior Auth Determination: Denied with Cover my meds. Received via: [facility] Medication/ Treatment: [facility] Reason: Outcome N/A today by [facility] Prior Authorization Department does not manage Prior Authorizations for this plan. Please contact member services phone number on the back of the member ID card. Appeal Information (if included): Re submitted via [employer] Benefits Faxed to [phone] Confirmation received [facility]08-01-2024 Miscellaneous Notes* Telephone Encounter - Claribel Wright LPN - 06/04/2024 3:37 PM EDT Prior Auth Determination: Denied with Cover my meds. Received via: [facility] Reason: Outcome N/A today by [facility] Prior Authorization Department does not manage Prior Authorizations for this plan. Please contact member services phone number on the back of the member ID card. Appeal Information (if included): Re submitted via RX Benefits Faxed to [phone] Confirmation received * Telephone Encounter - Claribel Wright LPN - 06/04/2024 2:22 PM EDT Prior Authorization PENDING Prior Authorization Request From: [facility] Medication/ Treatment: Nurtec Submitted Via Cover My Meds Reference# (if available): (Santos: [id number]) documented in this encounterKnox Community Hospital08-01-2024 Telephone encounter Note * Telephone Encounter - Claribel Wright LPN - 06/04/2024 2:22 PM EDT Prior Authorization PENDING Prior Authorization Request From: [facility] Medication/ Treatment: Nurtec Submitted Via Cover My Meds Reference# (if available): ([place]antos: [id number]) [facility]07-31[facility] History of Present illness Narrative* Ivette [...] visit. Either the patient or their legal customer service representative has been informed of the risks [...] hours asneeded for wheezing/shortness of breath. Ipratropium Hadley (ATROVENT) 21 mcg (0.03 %) nasal spray [...] 1 Each by INTRAUTERINE route as directed. [place]-3 Fatty Acids (FISH OIL) 500 mg cap Take 1 capsule by mouth once daily. blood sugar diagnostic (BLOOD GLUCOSE TEST) test strip Test blood sugar(s) 1 times daily. Dx: Type 2 DM - Controlled E11.9 Insulin: Yes Lancets lancets Test blood sugar(s) 1 times daily. Dx: Type 2 DM - Controlled E11.9 Insulin: No Bkikpqml-Hm-Lya-Fe-FA tab Take 1 tablet by mouth once [...] Age of Onset Alcohol/Drug Mother Heart Father [place] Cancer Father PANCREATIC CANCER Diabetes Father Coronary [...] issues. Ivette Grimes MD documented in this encounterKnox [facility] Hospital07-10-2024 Telephone encounter Note * Telephone [...] Lazo LPN May 13, 2024 11:29 AM [facility]07-10-2024 Miscellaneous Notes* Telephone Encounter - [...] 13, 2024 11:29 AM documented in this encounterKnox Community Hospital06-28-2024 Telephone encounter Note * Telephone Encounter - Cindy Edouard APRN.CNP - 05/01/2024 12:08 PM EDT Script sent. Cindy Edouard APRN.CNP [facility] Work Phone: 1(880) 203-385406-28-2024 Miscellaneous Notes* Telephone Encounter - Cindy Edouard APRN.CNP - 05/01/2024 12:08 PM EDT Script sent. Cindy Edouard APRN.CNP * Telephone Encounter - Rukhsana Wood - 05/01/2024 11:47 AM EDT Tori is calling Ivette Grimes MD today to request a medication not on current med list: Tizanidine 4 mg tablet taking every 8 hours as needed #60 refill 0 Pharmacy [facility] Please send today if possible, patient is out of this medicaiton Patient has been identified by name and birthdate. Duration of symptoms: N/A Person calling: self Call patient at: on cell [phone] (home) [phone] (work) [phone] (cell) Was an appointment scheduled: No Closing statement: Results or non-symptom based questions: Thank you for calling [facility], your call will be returned within the next business day. Rukhsana Guerrero documented in this encounterKn[facility]06-[facility]24 Telephone encounter Note * Telephone Encounter - Rukhsana Wood - 05/01/2024 11:47 AM EDT Tori is calling Ivette Grimes MD today to request a medication not on current med list: Tizanidine 4 mg tablet taking every 8 hours as needed #60 refill 0 Pharmacy [facility] Please send today if possible, patient is out of this medicaiton Patient has been identified by name and birthdate. Duration of symptoms: N/A Person calling: self Call patient at: on cell [phone] (home) [phone] (work) [phone] (cell) Was an appointment scheduled: No Closing statement: Results or non-symptom based questions: Thank you for calling [facility], your call will be returned within the next business day. Rukhsana Guerrero [facility]06-17-2024 Telephone encounter Note* Telephone Encounter [...] France RN April 20, 2024 11:22 AM [facility]06-17-2024 Miscellaneous Notes* Telephone Encounter - [...] 20, 2024 11:22 AM documented in this encounterKn[facility]06-17-2024 Telephone encounter Note * Telephone [...] Yoon LPN April 20, 2024 10:56 AM [facility]06-17-2024 Miscellaneous Notes* Telephone Encounter - [...] 20, 2024 10:56 AM documented in this encounterKn[facility]06-12-2024 Telephone encounter Note * Telephone Encounter - Mirna Santos MA - 04/15/2024 12:33 PM EDT PA approved till 04/14/2025. Faxed approval to pharmacy and patient left Mirna Santos MA [facility]06-12-2024 Miscellaneous Notes* Telephone Encounter - Mirna Santos MA - 04/15/2024 12:33 PM EDT PA approved till 04/14/2025. Faxed approval to pharmacy and patient left Mirna Santos MA * Telephone Encounter - Mrina Santos MA - 04/15/2024 8:42 AM EDT Submitted PA through [employer] for Trulicity 0.75 mg. Form faxed with office notes and A1c results Mirna Santos MA documented in this encounterKnox [facility] Hospital06-12-2024 Telephone encounter Note * Telephone Encounter - Mirna Santos MA - 04/15/2024 8:42 AM EDT Submitted PA through [email or web address] for Trulicity 0.75 mg. Form faxed with office notes and A1c results Mirna Santos MA [facility]06-11-2024 Telephone encounter Note* Telephone Encounter - Sheron Anne - 04/14/2024 9:01 AM EDT Last: 02/15/2023 Noted-Follow up in 3 months. Consider transfer of care back to PCP if patient does well on the current dose of her medication atthe next visit. It does not appear that you have seen her since [facility]06-11-2024 Miscellaneous Notes* Telephone Encounter - Sheron Anne - 04/14/2024 9:01 AM EDT Last: 02/15/2023 Noted-Follow up in 3 months. Consider transfer of care back to PCP if patient does well on the current dose of her medication atthe next visit. It does not appear that you have seen her since documented in this encounterKnox [facility] Hospital06-03-2024 Telephone encounter Note * Telephone Encounter - Darrion Severino MA - 04/06/2024 2:26 PM EDT Reminder set for botox authorization to be submitted 05/31. Due for next visit 07/01/24. Previous 04/02/24. [facility]06-03-[facility]24 Miscellaneous Notes* Telephone Encounter - Darrion Severino MA - 04/06/2024 2:26 PM EDT Reminder set for botox authorization to be submitted 05/31. Due for next visit 07/01/24. Previous 04/02/24. documented in this encounterKn[facility] Hospital05-30-2024 Instructions* Patient Instructions* Fatuma Beckford [...] at for further instructions. documented in this encounterKnox Community Hospital05-30-2024 History of Present illness Narrative* [...] days/month: 28 (672 headache-free hours) Migraine severity: 7 Patient reduction in overall migraine days: Yes [...] for migraine Informed Consent Consent Obtained: Written [place] Protocol A moment to CARE was completed [...] applicable Written Consent Obtained: Written LOT #: [id number] Expiration Date: Month: Year: 2025 Second vial: LOT #: [id number] Expiration Date: Month: 6 Year: 2025 Injection Sites Left (Units) Left (Sites) Right (Units) Right (Sites) TOTAL (Units) Screener And Blender Operator 5 1 5 1 10 Procerus Units: [...] needed. Fatuma Beckford PA-C documented in this encounterKnox [facility] Hospital04-26-2024 Telephone encounter Note * Telephone Encounter - Alyssa Andrews LPN - 02/28/2024 1:21 PM EDT Patient MyChart message requesting the following refill Refill(s) Requested: Requested Prescriptions Pending Prescriptions Disp Refills tiZANidine (ZANAFLEX) 4 mg tablet 60 tablet 0 Sig: Take 1 tablet by mouth every 8 hours as needed. ALLERGIES Allergen Reactions Lidocaine Hives Steroids [Betametha* Hives (home) [phone] (work) [phone] (cell) Last Office Visit Date: 12/09/2023 Last [facility] Health Visit: 07/15/2023 Future Appointment: Visit date not found The patients preferred pharmacy has been captured for this encounter? yes Request is for script(s) to be escript to pharmacy. Alyssa Andrews LPN [facility]04-26-2024 Miscellaneous Notes* Telephone Encounter - Alyssa Andrews LPN - 02/28/2024 1:21 PM EDT Patient MyChart message requesting the following refill Refill(s) Requested: Requested Prescriptions Pending Prescriptions Disp Refills tiZANidine (ZANAFLEX) 4 mg tablet 60 tablet 0 Sig: Take 1 tablet by mouth every 8 hours as needed. ALLERGIES Allergen Reactions Lidocaine Hives Steroids [Betametha* Hives (home) [phone] (work) [phone] (cell) Last Office Visit Date: 12/09/2023 Last [facility] Health Visit: 07/15/2023 Future Appointment: Visit date not found The patients preferred pharmacy has been captured for this encounter? yes Request is for script(s) to be escript to pharmacy. Alyssa Andrews LPN documented in this encounterKnox [facility] Hospital03-20-2024 Miscellaneous Notes* Telephone Encounter - Stephanie Parsons - 01/22/2024 4:00 PM EDT Patient has been identified by name and date of : Yes Patient phones for refill(s): Patient called for a refill of Tizanidine 4 mg. (Not in refill list). Please send to [facility] pharmacy. Date of last office visit in primary care: 12/09/2023 Date of next office visit in primary care: none Please advise. Thank you. Stephanie Parsons. documented in this encounterKnox [facility] Hospital03-13-2024 Miscellaneous Notes* Telephone Encounter - Roya Jaramillo LPN - 01/15/2024 12:07 PM EDT Fax received- Anthony has been approved from 01/15/24 - 04/16/24. Roya Jaramillo LPN * Telephone Encounter - Angely Goldsmith LPN - 01/14/2024 5:30 PM EDT Faxed Prior authorization Anthony, signed by provider to [place] [phone]. Angely Goldsmith LPN * Telephone Encounter - Angely Goldsmith LPN - 01/09/2024 5:17 PM EST Prior Authorization from [employer] received for Nurtec 75 mg, EOC number [id number] dated 01/09/2024 requested a completed drug specific form to be completed, signed by provider faxed. Copy placed on MQ bin in the [place] location to review, sign. Angely Goldsmith LPN [...] Thank you. GRISELDA Jasmine documented in this encounterKnox [facility] Hospital02-22-2024 Instructions* Patient Instructions* Fatuma Beckford [...] office for further instructions. documented in this encounterKnox Community Hospital02-22-2024 History of Present illness Narrative* [...] infection at proposed injection site. HEADACHE SCORES: VAEH - 2/7 SCORES 11/14/2022 02/13/2023 07/14/2023 VAHE-2 Score 1 2 4 VAHE-7 Score 2 6 12 PHQ-9 02/13/2023 07/14/2023 12/06/2023 Score 3 10 3 LMP (LMP Unknown) Patient name: Tori Gray : 1980 ALLERGIES Allergen Reactions Lidocaine Hives Steroids [Betametha* Hives UNIVERSAL PROTOCOL / SAFETY CHECKLIST Procedure: Onabotulinum toxin A for migraine Informed Consent Consent Obtained: Written [place] Protocol A moment to CARE was completed [...] applicable Written Consent Obtained: Written LOT #: [id number] Expiration Date: Month: Year: 2025 Second vial: LOT #: [id number] Expiration Date: Month: Year: 2025 Injection Sites Left (Units) Left (Sites) Right (Units) Right (Sites) TOTAL (Units) Screener And Blender Operator 5 1 5 1 10 Procerus Units: [...] appointment. Fatuma Beckford PA-C documented in this encounterKnox Community Hospital02-05-2024 Miscellaneous Notes* Telephone Encounter - Nirmala Storey LPN - 12/09/2023 6:36 PM EST Faxed to [facility]. * Telephone Encounter - Ivette Grimes MD - 12/09/2023 6:04 PM EST Order placed * Telephone Encounter - Nirmala Storey LPN - 12/09/2023 5:48 PM EST Please file mammo. For [facility] need to be mammo with jaquelin. After filed please fax to [facility] for patient. documented in this encounterKnox Community Hospital02-05-2024 History of Present illness Narrative* Ivette Grimes MD - 12/09/2023 5:29 PM EST Patient presents with: Diabetes HPI: Patient presents today for office visit for follow up. Hb was ok per [facility] lab Still has menses. DM:not checking. [...] for 180 days. Take one poqhs Ipratropium Hadley (ATROVENT) 21 mcg (0.03 %) nasal spray [...] 1 Each by INTRAUTERINE route as directed. [place]-3 Fatty Acids (FISH OIL) 500 mg cap Take 1 capsule by mouth once daily. blood sugar diagnostic (BLOOD GLUCOSE TEST) test strip Test blood sugar(s) 1 times daily. Dx: Type 2 DM - Controlled E11.9 Insulin: Yes Lancets lancets Test blood sugar(s) 1 times daily. Dx: Type 2 DM - Controlled E11.9 Insulin: No Gthhwxib-Ut-Lrv-Fe-FA tab Take 1 tablet by mouth once [...] Age of Onset Alcohol/Drug Mother Heart Father [place] Cancer Father PANCREATIC CANCER Diabetes Father Coronary [...] - stable. Ivette Grimes documented in this encounterKnox Community Hospital12-24-2023 Discharge summary Author Luan Zepeda [facility] October 27, 2023 3:44pm Note Date/Time October 27, 2023 3:16pm [facility] Medical Records Department [address] [place] [address] Emergency Department Summary 10/27/23 MR#: [id number] Acct: [id number] Name: TORI GRAY Rep #:[id number] : 1980 43 From: Luan Barry PCP: Dr. Ivette Grimes MD Status:PRE E R Location: ED HPI History of Present Illness Chief Complaint: Ear Problem [facility] Medical History Abnormal ECG Acute bronchitis Acute [...] %) nasal spray 2 spray intranasal BID egzkqueam43/20/20 [History Last Taken 08/03/23] omega-3 fatty acids [...] problems, contact your Primary Care Provider. Call [facility] ([phone]) or report to the closest Emergency Room. Call 911 if necessary. 10/27/23 2570 <Electronically signed by Luan Zepeda DO> Cosigner Signature (if applicable): CC: Dr. Ivette Grimes MD ~ Signed [facility] Work Phone: 1(891) 582-882312-12-2023 Miscellaneous Notes* Telephone Encounter - Fatuma Beckford PA-C - 10/15/2023 8:13 AM EST Patient was given three month supply on 09/13/23 documented in this encounterKnox Community Hospital12-11-2023 Miscellaneous Notes* Telephone Encounter - Quinn Lazo - 10/14/2023 1:43 PM EST Patient phones requesting refills as follows: Requested Prescriptions Pending Prescriptions Disp Refills topiramate (TOPAMAX) 100 mg tablet 60 tablet 5 Sig: Take 1 tablet by mouth two times a day. APRIL 07/15/23 NOV 12/09/23 Please review and advise. Quinn Lazo documented in this encounterKnox Community Hospital12-11-2023 Miscellaneous Notes* Telephone Encounter - [...] (Not on refill list). Please send to [facility] pharmacy. TY documented in this encounterKnox Community Hospital11-21-2023 Miscellaneous Notes* Telephone Encounter - Ry Wang - 09/24/2023 8:20 AM EST Patient's request for medication is as follows: Requested Prescriptions Pending Prescriptions Disp Refills FLUoxetine (PROZAC) 20 mg capsule 90 capsule 0 Sig: Take 1 capsule by mouth once daily. Prescription(s) as above. Please process accordingly. Ry Wang documented in this [facility]11-06-2023 Miscellaneous Notes* Telephone Encounter - Quinn Lazo - 09/09/2023 1:21 PM EST Patient phones requesting refills as follows: Requested Prescriptions Pending Prescriptions Disp Refills ZOLMitriptan (ZOMIG) 5 mg tablet 9 tablet 11 Sig: Take 1 tablet (5 mg) by mouth once daily. prn APRIL 07/15/23 NOV 12/09/23 Please review and advise. Quinn Lazo documented in this [facility]10-23-2023 Miscellaneous Notes* Telephone Encounter - Nakia Caraballo RN - 08/26/2023 11:58 AM EDT Patient scheduled for 09/13/23 at 2 pm for botox. Latonia Caraballo RN, BSN documented in this encounterKnox Community Hospital10-20-2023 Miscellaneous Notes* Telephone Encounter - Nirmala Storey LPN - 08/23/2023 2:40 PM EDT Completed and faxed as requested. * Telephone Encounter - Dennise Robles - 08/20/2023 11:55 AM EDT Type of form: 2023 Healthy living program Form received via mail When form is completed, Fax form to [phone] Form has been forwarded to Physician Desk: Dr. Sydney Robles documented in this encounterKnox Community Hospital09-01-2023 Miscellaneous Notes* Telephone Encounter - [...] advise. Quinn Lazo LPN documented in this encounterKnox Community Hospital09-01-2023 Miscellaneous Notes* Telephone Encounter - Jenni Zaman - 07/05/2023 8:25 AM EDT Patient has been identified by name and date of : Yes, Provider [facility] Pharmacy phones for refill(s): Requested Prescriptions Pending [...] Thank you. Jenni Zaman documented in this encounterKnox Community Hospital08-16-2023 History of Present illness Narrative* [...] % 02/22/2014 5.3 % 12/05/2012 5.9 % HBA1CMoreno (%) Date Value 01/23/2010 5.8 PCP: Ivette [...] mouth every 8 hours as needed. Ipratropium Hadley (ATROVENT) 21 mcg (0.03 %) nasal spray [...] 1 Each by INTRAUTERINE route as directed. [place]-3 Fatty Acids (FISH OIL) 500 mg cap Take 1 capsule by mouth once daily. Lancets lancets Test blood sugar(s) 1 times daily. Dx: Type 2 DM - Controlled E11.9 Insulin: No Aackmqpy-Di-Hay-Fe-FA tab Take 1 tablet by mouth once [...] Age of Onset Alcohol/Drug Mother Heart Father [place] Cancer Father PANCREATIC CANCER Diabetes Father Coronary [...] Stein DPM Podiatry [address] [facility] [address] Dept: [phone] Dept * Keri Parker RN - 06/19/2023 [...] developed left foot pain documented in this encounterKnox Community Hospital08-16-2023 Instructions* Patient Instructions* Umesh Delgado [...] time on their feet, such as nurses, warp splitter/waiters, andmail carriers, often experience plantar fasciitis. Athletes [...] choose the one that fits the best. [place] with your athletic shoes to find a [...] Can purchase at [employer] here in [place], [employer] in [place] or [place]. Also can find in [place] in [facility]. [...] everything fits well together documented in this encounterKnox Community Hospital08-04-2023 History of Present illness Narrative* [...] migraine, would like to go back to [place], noted that I do botox in this location and patient would like to transfer. EEG completed 04/02/23 at [facility] and per report, normal. Pt reports [...] 2 weeks ago - was working at [employer] and tubs of butter fell and hit her on the right side of the head. Pt states hurt the next day but then felt better. Did not seek medical attention. But then states went to [facility] ER where they did a CT [...] mouth every 8 hours as needed. Ipratropium Hadley (ATROVENT) 21 mcg (0.03 %) nasal spray [...] 2 DM - Controlled E11.9 Insulin: No Sbffcleg-Ft-Mqt-Fe-FA tab Take 1 tablet by mouth once daily. FLUoxetine (PROZAC) 20 mg capsule Take 1 capsule by mouth once daily. [place]-3 Fatty Acids (FISH OIL) 500 mg cap [...] Age of Onset Alcohol/Drug Mother Heart Father [place] Cancer Father PANCREATIC CANCER Diabetes Father Coronary [...] time. Follow up after evaluation by neuro [facility]. Ivette Price MD I spent a total of 42 minutes on the date of the service which included preparing to see the patient, nepf-rh-medy patient care, completing clinical documentation, obtaining and/or [...] of your PCP/referring physician. documented in this encounterKnox Community Hospital08-03-2023 History of Present illness Narrative* Ivette [...] eps and given ok to continue. Seeing [place] cardiology. Feeling well overall MEDICATIONS: Current Outpatient Medications Medication Sig tiZANidine (ZANAFLEX) 4 mg tablet Take 1 tablet by mouth every 8 hours as needed. Ipratropium Hadley (ATROVENT) 21 mcg (0.03 %) nasal spray [...] 1 Each by INTRAUTERINE route as directed. [place]-3 Fatty Acids (FISH OIL) 500 mg cap Take 1 capsule by mouth once daily. blood sugar diagnostic (BLOOD GLUCOSE TEST) test strip Test blood sugar(s) 1 times daily. Dx: Type 2 DM - Controlled E11.9 Insulin: Yes (Patient not taking: Reported on 05/28/2023) Lancets lancets Test blood sugar(s) 1 times daily. Dx: Type 2 DM - Controlled E11.9 Insulin: No Arhdhcjb-Yq-Jxw-Fe-FA tab Take 1 tablet by mouth once [...] Age of Onset Alcohol/Drug Mother Heart Father MO Cancer Father PANCREATIC CANCER Diabetes Father Coronary [...] RTO in six months documented in this encounterKnox Community Hospital07-26-2023 History of Present illness Narrative* Isiah Funes APRN.CNP - 05/29/2023 4:38 PM EDT Boot provided, see yesterdays addended noted. documented in this encounterKnox Community Hospital07-26-2023 Miscellaneous Notes* Telephone Encounter - [...] boot. Please call Pt. documented in this encounterKnox Community Hospital07-17-2023 Discharge summary Author Sam Pearl [facility] May 20, 2023 10:36pm Note Date/Time May 20, 2023 10:3 6pm [facility] Medical Records Department [address] [place] [address] Emergency Department Summary 05/20/23 MR#: [id number] Acct: [id number] Name: TORI GRAY Rep #:[id number] : 1980 42 From: Sam Pearl MD PCP: Dr. Ivette Grimes MD Status:PRE E R Location: ED HPI History of Present Illness Chief Complaint: Head Injury Informant: patient Onset/Context/Timing Onset: Hours (1.5) Mechanism/Context: Blunt Injury Narrative Narrative: Patient states she was working at a [employer], it was almost closing time, she was [...] are now made worse since this injury. [facility] Medical History Abnormal ECG Acute bronchitis Acute [...] #10 ea 04/26/20 [History Last Taken Unknown] awnkwvbd-vkt-Mi-FA 1 mg capsule 1 cap PO DAILY [...] Normal speech. Can name and remember objects. [place] Coma Scale: document GCS findings Spontaneous Obeys [...] restrictions temporarily. NEXUS Head CT Instrument from [employer] on 05/20/2023 All calculations should be rechecked [...] Age >=5 years ?> 0 = No Singaporean CT Head Injury/Trauma Rule from [employer] on 05/20/2023 All calculations should be rechecked by clinician prior to use RESULT SUMMARY: CT Unnecessary The Singaporean Head CT Rule suggests a head CT [...] consciousness Instructions: ED Concussion Prescriptions: No Action ycvryihd-vtd-Jo-FA 1 mg capsule 1 mg capsule 1 [...] your Primary Care Provider. Call [facility] ([phone]) or report to the closest Emergency Room. Call 911 if necessary. 05/20/232235 <Electronically signed by Sam Pearl MD> Cosign Signature (if applicable): CC: Dr. Ivette Grimes MD ~ Signed [facility] Work Phone: 1(361) 826-906707-14-2023 Instructions* Patient Instructions* Fatuma Beckford PA-C - [...] office for further instructions. documented in this encounterKnox Community Hospital07-14-2023 History of Present illness Narrative* [...] for migraine Informed Consent Consent Obtained: Written [place] Protocol A moment to CARE was completed [...] applicable Written Consent Obtained: Written LOT #: [id number] Expiration Date: Month: Year: 2024 Second vial: LOT #: [id number] Expiration Date: Month: Year: 2024 Injection Sites Left (Units) Left (Sites) Right (Units) Right (Sites) TOTAL (Units) Screener And Blender Operator 5 1 5 1 10 Procerus Units: [...] therapy. Fatuma Beckford PA-C documented in this encounterKnox Community Hospital07-05-2023 Miscellaneous Notes* Telephone Encounter - [...] you. Lubna Yoon LPN documented in this encounterKnox Community Hospital06-02-2023 Miscellaneous Notes* Telephone Encounter - [...] patient. Nirmala Storey LPN documented in this encounterKnox Community Hospital05-17-2023 Miscellaneous Notes* Telephone Encounter - Nakia Caraballo RN - 03/20/2023 12:38 PM EDT Botox renewal sent to pharmacy. Will schedule at [place] once approved. Patient due 04/22/23. [facility] unchecked. Latonia Caraballo RN documented in this encounterKnox Community Hospital05-08-2023 Miscellaneous Notes* Telephone Encounter - Nakia Caraballo RN - 03/11/2023 11:01 AM EDT Patient is not due for botox until 04/22/23. Asked her which location she prefers so we can scheduleonce approved. Latonia Caraballo RN documented in this encounterKnox Community Hospital05-02-2023 Instructions* Patient Instructions* Fatuma Beckford PA-C - 03/05/2023 1:02 PM EDT Continue regimen Reach out with any new symptoms or worsening weakness Reach out to Karen about moving botox Follow up with sleep provider in three months documented in this encounterKnox Community Hospital05-02-2023 History of Present illness Narrative* [...] Gets botox for migraines with Karen Dowell GABRIELA. Patient sustained fall and head injury 11/24/22 [...] Each by INTRAUTERINE route as directed. Ipratropium Hadley (ATROVENT) 0.03 % nasal spray Use 2 Sprays in the nose every 12 hours. [place]-3 Fatty Acids (FISH OIL) 500 mg cap Take 1 capsule by mouth once daily. blood sugar diagnostic (BLOOD GLUCOSE TEST) test strip Test blood sugar(s) 1 times daily. Dx: Type 2 DM - Controlled E11.9 Insulin: Yes Lancets lancets Test blood sugar(s) 1 times daily. Dx: Type 2 DM - Controlled E11.9 Insulin: No Uyuqmzqh-Qm-Bka-Fe-FA tab Take 1 tablet by mouth once daily. HISTORIES PAST MEDICAL HISTORY Diagnosis Date Acute cholecystitis Cholecystitis Anxiety 06/07/2014 Chronic back pain Kidney stones LETITIA treated with BiPAP Type 2 diabetes mellitus (HCC) FAMILY HISTORY Problem Relation Age of Onset Alcohol/Drug Mother Heart Father [place] Cancer Father PANCREATIC CANCER Diabetes Father Coronary [...] dysarthria; comprehension, naming, repetition intact. Short and clinical research analyst memory intact. CN: PERRL, EOMI and without [...] migraine, would like to go back to [place], noted that I do botox in this [...] which included preparing to see the patient, kxfs-ua-bmde patient care, completing clinical documentation, obtaining and/or reviewing separately obtained history, performing a medically appropriate examination, counseling and educating the pat ient/family/caregiver, and ordering medications, tests, or procedures. This document has been created with the use of voice recognition technology. It may contain inaccuracies: (e.g. misspellings, inaccurate syntax or word sense) that have escaped review. documented in this encounterKnox Community Hospital05-02-2023 History of Present illness Narrative* [...] L1 SAB0 IAB0 Ectopic0 Multiple0 Live Births1 Podiatric Medicine Doctor History LMP: 01/02/2023 (Approximate), IUD Age at Menarche: Age at First : Age at Menopause: Podiatric Medicine Doctor History Comments: Sexual Activity: Not Currently; No [...] Age of Onset Alcohol/Drug Mother Heart Father [place] Cancer Father PANCREATIC CANCER Diabetes Father Coronary [...] external genitalia normal, normal Bartholin's glands, urethra, [place]'s glands, no vulvar lesions, no cervical lesions, [...] needed Galina Camacho MD documented in this encounterKnox Community Hospital05-01-2023 Miscellaneous Notes* Telephone Encounter - [...] to [place]. Please advise pt. Pharmacy is [facility]. Cary Goldsmith LPN documented in this encounterKnox Community Hospital04-28-2023 History of Present illness Narrative* [...] appointment. Ivette Price MD documented in this encounterKnox Community Hospital04-28-2023 Miscellaneous Notes* Telephone Encounter - Anni Sauceda Pss - 03/01/2023 9:54 AM EDT PCP requesting the patient have a follow-up with MIKE. Spoke with the patient and she wasn't able to take the time available. The patient is scheduled for a follow-up appointment with the PA. The patient is aware of the appointment. documented in this encounterKnox [facility]04-27-2023 History of Present illness Narrative* [...] Each by INTRAUTERINE route as directed. Ipratropium Hadley (ATROVENT) 0.03 % nasal spray Use 2 Sprays in the nose every 12 hours. metroNIDAZOLE (METROGEL) 0.75 % Topical Gel Apply to affected area twice daily. [place]-3 Fatty Acids (FISH OIL) 500 mg cap Take 1 capsule by mouth once daily. blood sugar diagnostic (BLOOD GLUCOSE TEST) test strip Test blood sugar(s) 1 times daily. Dx: Type 2 DM - Controlled E11.9 Insulin: Yes Lancets lancets Test blood sugar(s) 1 times daily. Dx: Type 2 DM - Controlled E11.9 Insulin: No Clevhybh-Re-Suk-Fe-FA tab Take 1 tablet by mouth once [...] Age of Onset Alcohol/Drug Mother Heart Father MO Cancer Father PANCREATIC CANCER Diabetes Father Coronary [...] BLD Ivette Grimes MD documented in this encounterKnox [facility] Hospital04-27-2023 History of Present illness Narrative* Little Perez, RT(R) - 02/28/2023 8:00 AM EDT [...] 28, 2023 8:53 AM documented in this encounterKnox Community Hospital04-26-2023 Miscellaneous Notes* Telephone Encounter - [...] the provider could send her something to [facility] pharmacy just to take for tomorrow. Please call and advise. documented in this encounterKnox [facility] Hospital04-24-2023 Miscellaneous Notes* Telephone Encounter - [...] 02/28/23 Adriana Swanson MA documented in this encounterKnox Community Hospital04-14-2023 History of Present illness Narrative* Grace Coronel APRN.CHEMISTRY LECTURER - 02/15/2023 3:32 PM EDT Images from [...] visit. Either the patient or their legal customer service representative has been informed of the risks [...] has been seeing a [facility]. Has been working with him every [...] which included preparing to see the patient, wpsr-gi-kdow patient care, completing clinical documentation, and counseling and educating the patient/family/caregiver, ordering medications/labs, and communicating with other healthcare providers. Grace Coronel APRN.GABRIELA February 15, 2023 3:32 PM This note was partially generated using WiMi5 voice recognition system. Note was reviewed for accuracy. There may be minor misspellings or grammar miscues with WiMi5 voice recognition. documented in this encounterKnox Community Hospital04-12-2023 Miscellaneous Notes* Telephone Encounter - Nirmala Storey LPN - 02/13/2023 5:54 PM EDT [employer] message sent to patient. * Telephone Encounter [...] of US head/neck soft tissue received from [facility] via fax. Results scanned into Epic. (May takea few minutes before viewable in Epic.) Quinn Lazo LPN documented in this encounterKnox Community Hospital04-10-2023 Miscellaneous Notes* Telephone Encounter - Quinn Lazo LPN - 02/11/2023 1:15 PM EDT Patient phones requesting refills as follows: Requested Prescriptions Pending Prescriptions Disp Refills tiZANidine (ZANAFLEX) 4 mg tablet 20 tablet 0 Sig: Take 1 tablet by mouth every 8 hours as needed. APRIL 01/31/23 NOV 02/28/23 Please review and advise. Quinn Lazo LPN documented in this encounterKnox Community Hospital03-30-2023 Miscellaneous Notes* Telephone Encounter - Little Murphy Ma - 01/31/2023 10:31 AM EDT Faxed order to [facility] per patient's request * Telephone Encounter - Ivette Grimes MD - 01/31/2023 9:44 AM EDT While here patient has noted an intermittent lump in left neck. Slightly sore to touch. Comes andgoes. Is a nonspecific swelling on left posterior neck. Not sure is related to her fall. Will run throughregular us. Set up us at [facility]. Will run through regular insurance. documented in this encounterKnox Community Hospital03-30-2023 History of Present illness Narrative* [...] Each by INTRAUTERINE route as directed. Ipratropium Hadley (ATROVENT) 0.03 % nasal spray Use 2 Sprays in the nose every 12 hours. metroNIDAZOLE (METROGEL) 0.75 % Topical Gel Apply to affected area twice daily. [place]-3 Fatty Acids (FISH OIL) 500 mg cap Take 1 capsule by mouth once daily. blood sugar diagnostic (BLOOD GLUCOSE TEST) test strip Test blood sugar(s) 1 times daily. Dx: Type 2 DM - Controlled E11.9 Insulin: Yes Lancets lancets Test blood sugar(s) 1 times daily. Dx: Type 2 DM - Controlled E11.9 Insulin: No Qbaxthma-Qj-Ksb-Fe-FA tab Take 1 tablet by mouth once [...] Age of Onset Alcohol/Drug Mother Heart Father MO Cancer Father PANCREATIC CANCER Diabetes Father Coronary [...] above. Ivette Grimes MD documented in this encounterKnox Community Hospital03-23-2023 NoteHNO ID: [id number] Author: Gloria Oh MA Service: ? Author Type: Retail Attendant Type: Progress Notes Filed: 01/24/2023 11:07 AM [...] not included. [facility] Name: Tori Gray : 1980 Purpose: Follow-up, discuss SPRINT Today's Date: 01/24/2023 Last Visit: 11/08/2022 (OV REVIEW ASSISTANT) Chief complaint: LEFT shoulder pain Tori Gray [...] and external rotation Special Tests: Non-painful (negative) ZacAlexandra Strickland's Neuro-Lower: Neural Tension Signs: Negative slump in [...] was advised that they will need a chain saw driver for after the procedure and that if no chain saw driver is available and on site at the time of the procedure, the procedure will be cancelled. For any anticoagulants, the patient was advised on whether to continue or hold for this procedure. The patient expressed understanding and gave verbal consent to proceed. Medications: Refill: Continue Gabapentin as directed (PCP manages) Functional Confucianist: Continue PT and TENs unit for pain [...] [facility] documented in this encounterKnox Community Hospital03-21-2023 Instructions* Patient Instructions* Jenni Ledesma APRN.CNP - [...] the next 5 days. documented in this encounterKnox Community Hospital03-21-2023 History of Present illness Narrative* [...] for migraine Informed Consent Consent Obtained: Written [place] Protocol A moment to CARE was completed [...] applicable Written Consent Obtained: Written LOT #: [id number] Expiration Date: Month: 3 Year: 2024 Second vial: LOT #: [id number] Expiration Date: Month: 3 Year: 2024 Injection Sites Left (Units) Left (Sites) Right (Units) Right (Sites) TOTAL (Units) Screener And Blender Operator 5 1 5 1 10 Procerus Units: [...] Amitriptyline Propranolol Topiramate/ Trokendi XL Jenni Ledesma APRN.CHEMISTRY LECTURER Attestation: I have reviewed the clinical details [...] recommendations. Karen Bansal APRN.GABRIELA documented in this encounterKnox Community Hospital03-16-2023 History of Past illness Narrative* [...] of this encounter (statuses as of 12/10/2023) [facility] History of Past illness Narrative* [...] of this encounter (statuses as of 12/10/2023) [facility] History of Past illness Narrative* [...] of this encounter (statuses as of 12/26/2023) [facility] History of Past illness Narrative* [...] of this encounter (statuses as of 01/02/2024) [facility] History of Past illness Narrative* [...] of this encounter (statuses as of 01/15/2024) [facility] History of Past illness Narrative* [...] of this encounter (statuses as of 01/23/2024) [facility] History of Present illness Narrative* [...] to return to her second job at [employer] for one night and 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 She feels like the back of her neck feels off. No cough or congestion. No sore throat or fever. Had a cold last week. Now better. MRI still not approved. She spoke with Yantra who states a C9 needs completed specifically [...] Each by INTRAUTERINE route as directed. Ipratropium Hadley (ATROVENT) 0.03 % nasal spray Use 2 Sprays in the nose every 12 hours. [place]-3 Fatty Acids (FISH OIL) 500 mg cap Take 1 capsule by mouth once daily. blood sugar diagnostic (BLOOD GLUCOSE TEST) test strip Test blood sugar(s) 1 times daily. Dx: Type 2 DM - Controlled E11.9 Insulin: Yes Lancets lancets Test blood sugar(s) 1 times daily. Dx: Type 2 DM - Controlled E11.9 Insulin: No Ungrvmda-Ha-Gri-Fe-FA tab Take 1 tablet by mouth once [...] Age of Onset Alcohol/Drug Mother Heart Father MO Cancer Father PANCREATIC CANCER Diabetes Father Coronary [...] S19.9XXD Ivette Grimes MD documented in this encounterKnox Community Hospital03-14-2023 NoteHNO ID: [id number] Author: Elle Rasheed MD Service: ? Author Type: Physician Type: Progress Notes Filed: 01/24/2023 11:07 AM Note Text: [facility] Name: Tori Gray : 1980 Purpose: Follow-up, discuss SPRINT Today's Date: 01/24/2023 Last Visit: 11/08/2022 (OV REVIEW ASSISTANT) Chief complaint: LEFT shoulder pain Tori Gray [...] [facility] Miscellaneous Notes* Telephone Encounter - Nirmlaa Storey LPN - 01/11/2023 4:42 PM EST Request is closed. An override is in effect until 01/09/24. * Telephone Encounter - Mirna Santos Ma - 01/08/2023 4:55 PM EST PA was submitted through rx benefits Mirna Santos Ma documented in this encounterKnox Community Hospital03-09-2023 Miscellaneous Notes* Telephone Encounter - [...] patient. Nirmala Storey LPN documented in this encounterKnox Community Hospital03-03-2023 History of Present illness Narrative* [...] Each by INTRAUTERINE route as directed. Ipratropium Hadley (ATROVENT) 0.03 % nasal spray Use 2 Sprays in the nose every 12 hours. metroNIDAZOLE (METROGEL) 0.75 % Topical Gel Apply to affected area twice daily. [place]-3 Fatty Acids (FISH OIL) 500 mg cap Take 1 capsule by mouth once daily. blood sugar diagnostic (BLOOD GLUCOSE TEST) test strip Test blood sugar(s) 1 times daily. Dx: Type 2 DM - Controlled E11.9 Insulin: Yes Lancets lancets Test blood sugar(s) 1 times daily. Dx: Type 2 DM - Controlled E11.9 Insulin: No Vzdumyeu-Ux-Iir-Fe-FA tab Take 1 tablet by mouth once [...] Age of Onset Alcohol/Drug Mother Heart Father MO Cancer Father PANCREATIC CANCER Diabetes Father Coronary [...] R51.9 Ivette Grimes MD documented in this encounterKnox Community Hospital02-28-2023 Miscellaneous Notes* Telephone Encounter - Little Murphy Ma - 01/01/2023 3:02 PM EST Patient never checked in for her appointments as workers comp. Sent visits to [facility] to have C9 created and faxed to [...] resubmit. Hailey Leone LPN documented in this encounterKnox Community Hospital02-23-2023 Miscellaneous Notes* Telephone Encounter - Anni Sauceda Pss - 12/27/2022 2:22 PM EST Received the [facility] C9 form. The patient was seen on 12/07/2022. The appointment was attached to the patient's insurance not a WC claim. Spoke with the patient and was given the information. PCP Dr. Grimes is the physican of records per the patient. Claim# [id number] Date of injury: 11/24/2022 Nolberto Walden RN [phone] Case management: Cristina # [phone] Left Cristina a message to fax information and to call the office. Requested WC report and DX allowed * Telephone Encounter - Jovana Blackwell MA - 12/26/2022 2:12 PM EST Spoke to [employer]. Will send OV note to complete authorization of MRI order/payment of visit to [phone]. [employer]ram is sending c9 form for provider to complete. Gave form to Anni Sauceda per Dr. Price's instructions. Jovana Blackwell MA * Telephone Encounter - Jovana Blackwell MA - 12/25/2022 10:18 AM EST TC to [employer]. Unable to reach. Left detailed message on VM to return call to office & ask for atriage nurse. Please transfer to neurology back line at ext. [phone]. Jovana Blackwell MA * Telephone Encounter - Marilynn Frank LPN - 12/24/2022 3:28 PM EST Patient calling said her MRI's need to be prior authorized with Workman Vasiliy. Person name is lawrence number is [phone] works 8 am to 430 pm and fax number is [phone]. Patient claim number is [id number]. documented in this encounterKnox Community Hospital02-22-2023 Miscellaneous Notes* Telephone Encounter - Quinn Lazo LPN - 12/26/2022 11:41 AM EST Patient phones requesting refills as follows: Requested Prescriptions Pending Prescriptions Disp Refills tiZANidine (ZANAFLEX) 4 mg tablet 20 tablet 0 Sig: Take 1 tablet by mouth every 8 hours as needed. APRIL 12/26/22 NOV 01/04/23 Please review and advise. Quinn Lazo LPN documented in this encounterKnox Community Hospital02-22-2023 History of Present illness Narrative* [...] Each by INTRAUTERINE route as directed. Ipratropium Hadley (ATROVENT) 0.03 % nasal spray Use 2 [...] 2 DM - Controlled E11.9 Insulin: No Vnfjojko-Oa-Pqg-Fe-FA tab Take 1 tablet by mouth once daily. [place]-3 Fatty Acids (FISH OIL) 500 mg cap [...] mirena LAPAROSCOPY SURG CHOLECYSTECTOMY 2006 Cholecystectomy, lap (Canaan, Rowena) PAST SURGICAL HISTORY OF 2019 stent into kidney REMOVE IUD 07/13/2010 FAMILY HISTORY Problem Relation Age of Onset Alcohol/Drug Mother Heart Father MO Cancer Father PANCREATIC CANCER Diabetes Father Coronary [...] until 01/07. 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 Recheck in one week. 2. Essential (primary) hypertension - ICD9: 401.9, ICD10: I10 - good control - Continue current medication(s) - Goal of BP <130/80 Ivette Grimes MD documented in this encounterKnox Community Hospital02-20-2023 Miscellaneous Notes* Telephone Encounter - Nakia Caraballo RN - 12/24/2022 5:22 PM EST Last OV: 07/19/22 Last Refill: 08/03/22 FU OV: 01/22/23 Appropriate for refill routed to for review Latonia Caraballo RN documented in this encounterKnox Community Hospital02-10-2023 History of Present illness Narrative* [...] waiting to schedule those. Conflicts over at [facility] with workers comp. Injury that prompted [...] Each by INTRAUTERINE route as directed. Ipratropium Hadley (ATROVENT) 0.03 % nasal spray Use 2 Sprays in the nose every 12 hours. metroNIDAZOLE (METROGEL) 0.75 % Topical Gel Apply to affected area twice daily. [place]-3 Fatty Acids (FISH OIL) 500 mg cap [...] 2 DM - Controlled E11.9 Insulin: No Yygyhmqe-Fa-Ruk-Fe-FA tab Take 1 tablet by mouth once [...] Age of Onset Alcohol/Drug Mother Heart Father MO Cancer Father PANCREATIC CANCER Diabetes Father Coronary [...] Z79.4 - LISINOPRIL 10 MG TABLET Ivette Grimse MD RTO in two weeks. documented in this encounterKnox Community Hospital02-07-2023 Miscellaneous Notes* Telephone Encounter - Ingrid Salmon Ma - 12/11/2022 9:55 AM EST Last office visit: 12/07/22 F/u scheduled: 12/14/22 Ingrid Salmon Ma documented in this encounterKnox Community Hospital02-03-2023 History of Present illness Narrative* [...] view their previous records. documented in this encounterKnox Community Hospital02-03-2023 History of Present illness Narrative* [...] BP. Check CMP and CBC due to nursing home med use. 3. LETITIA (obstructive sleep apnea) [...] when sleepy. 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 Patient now referred for NEW complaint of head trauma. ER notes and PCP notes reviewed. Per PCP note of 11/27/22: Patient presents today for office visit for ER F/U from [facility] 11/24/22. Head injury after fall. Cleaning [...] Appears pt had CT brain x2 at [facility] that were both unremarkable. Pt also previously referred to headache center to perform botox -- scheduled to get injections by January 2023. Note records show that pt has seen cards (EP) for QT prolongation concerns. Pt states on 11/24/22 was working at [facility] was doing a discharge, when bedside [...] Each by INTRAUTERINE route as directed. Ipratropium Hadley (ATROVENT) 0.03 % nasal spray Use 2 Sprays in the nose every 12 hours. blood sugar diagnostic (BLOOD GLUCOSE TEST) test strip Test blood sugar(s) 1 times daily. Dx: Type 2 DM - Controlled E11.9 Insulin: Yes Lancets lancets Test blood sugar(s) 1 times daily. Dx: Type 2 DM - Controlled E11.9 Insulin: No Yxztpxtn-Uf-Cjr-Fe-FA tab Take 1 tablet by mouth once daily. metroNIDAZOLE (METROGEL) 0.75 % Topical Gel Apply to affected area twice daily. (Patient not taking: Reported on 12/07/2022) [place]-3 Fatty Acids (FISH OIL) 500 mg cap Take 1 capsule by mouth once daily. (Patient taking differently: Take 1 tablet by mouth once daily. 1200 mg) HISTORIES PAST MEDICAL HISTORY Diagnosis Date Acute cholecystitis Cholecystitis Anxiety 06/07/2014 Chronic back pain Kidney stones LETITIA treated with BiPAP Type 2 diabetes mellitus (HCC) FAMILY HISTORY Problem Relation Age of Onset Alcohol/Drug Mother Heart Father MO Cancer Father PANCREATIC CANCER Diabetes Father Coronary [...] which included preparing to see the patient, sycm-mu-ddyi patient care, completing clinical documentation, obtaining and/or reviewing separately obtained history, performing a medically appropriate examination, counseling and educating the pat ient/family/caregiver, ordering medications, tests, or procedures, and communicating results to thepatient/family/caregiver. documented in this encounterKnox Community Hospital01-31-2023 Miscellaneous Notes* Telephone Encounter - Marilynn Frank LPN - 12/04/2022 9:52 AM EST [facility] calling asking for copy of 11/27/2022 office visit notes and copy of letter off work to be faxed to [phone] with claim number [id number]. Printed and faxed as requested. documented in this encounterKnox Community Hospital01-30-2023 Miscellaneous Notes* Telephone Encounter - [...] agreeable. Mechelle Velasquez RN documented in this encounterKnox Community Hospital01-27-2023 History of Present illness Narrative* [...] Each by INTRAUTERINE route as directed. Ipratropium Hadley (ATROVENT) 0.03 % nasal spray Use 2 Sprays in the nose every 12 hours. metroNIDAZOLE (METROGEL) 0.75 % Topical Gel Apply to affected area twice daily. [place]-3 Fatty Acids (FISH OIL) 500 mg cap [...] 2 DM - Controlled E11.9 Insulin: No Lptuqrjj-Tu-Vaw-Fe-FA tab Take 1 tablet by mouth once [...] Age of Onset Alcohol/Drug Mother Heart Father MO Cancer Father PANCREATIC CANCER Diabetes Father Coronary [...] ICD10: S06.0X9A Ivette Grimes documented in this encounterKnox Community Hospital01-26-2023 Miscellaneous Notes* Telephone Encounter - [...] her appointment for 12/05/22 with you in [place] as she is not sure if this will effect her. Please advise. Darrion Shah documented in this encounterKnox Community Hospital01-24-[address] Callejas [facility] November 27, 2022 6:34pm Note Date/Time November 27, 2022 3 :56pm [facility] Medical Records Department [address] [place] [address] Emergency Department Summary 11/27/22 MR#: [id number] Acct: [id number] Name: TORI GRAY Rep #:[id number] : 1980 42 From: Tod Callejas MD [...] other symptoms consistent with a viral illness. [facility] Medical History Acute bronchitis Acute cholecystitis Acute [...] #10 ea 04/26/20 [History Last Taken Unknown] qrayvbvt-jmt-Uc-FA 1 mg capsule 1 cap PO DAILY [...] concussion Instructions: ED Concussion Prescriptions: No Action upkmeojw-asg-Ds-FA 1 mg capsule 1 mg capsule 1 [...] your Primary Care Provider. Call [facility] ([phone]) or report to the closest Emergency Room. Call 911 if necessary. 11/27/22 0274 <Electronically signed by Tod Callejas MD> Cosigner Signature (if applicable): CC: Dr. Ivette Grimes MD ~ Signed [facility] Work Phone: [phone]) 233-165101-24-2023 History of Present illness Narrative* Ivette Grimes MD - 11/27/2022 1:48 PM EST Patient presents with: ER F/U HPI: Patient presents today for office visit for ER F/U from [facility] 11/24/22. Head injury after fall. Cleaning [...] Each by INTRAUTERINE route as directed. Ipratropium Hadley (ATROVENT) 0.03 % nasal spray Use 2 Sprays in the nose every 12 hours. metroNIDAZOLE (METROGEL) 0.75 % Topical Gel Apply to affected area twice daily. [place]-3 Fatty Acids (FISH OIL) 500 mg cap [...] 2 DM - Controlled E11.9 Insulin: No Ermwlxsp-Dy-Bwm-Fe-FA tab Take 1 tablet by mouth once [...] Age of Onset Alcohol/Drug Mother Heart Father MO Cancer Father PANCREATIC CANCER Diabetes Father Coronary [...] S06.0X9A Ivette Grimes MD documented in this encounterKnox Community Hospital01-20-2023 Miscellaneous Notes* Telephone Encounter - [...] advise. Quinn Lazo LPN documented in this encounterKnox Community Hospital01-12-2023 Miscellaneous Notes* Telephone Encounter - Jumana Harrell LPN - 11/15/2022 8:34 AM EST Patient phones requesting refills as follows: Requested Prescriptions Pending Prescriptions Disp Refills tiZANidine (ZANAFLEX) 4 mg tablet 20 tablet 0 Sig: Take 1 tablet by mouth every 8 hours as needed. APRIL-09/04/22 Labs-09/06/22 NOV-12/06/22 med filled 10/05/22 Please review and advise. Jumana Harrell LPN documented in this encounterKnox Community Hospital01-05-2023 NoteHNO ID: [id number] Author: Adelina Marinelli APRN.CHEMISTRY LECTURER Service: ? Author Type: Nurse Practitioner Type: Progress Notes Filed: 11/08/2022 1:55 PM Note Text: [facility] [place] [facility] Today's Date: 11/08/2022 Last Visit: 07/19/22 [...] activity was identified. 11/08/2022 by Adelina Marinelli APRN.CHEMISTRY LECTURER Allergies: ALLERGIES Allergen Reactions Lidocaine Hives Steroids [...] [facility] 11-08-2022 NoteHNO ID: [id number] Author: Gloria Oh MA Service: ? Author Type: Retail Attendant Type: Progress Notes Filed: 11/08/2022 1:55 PM [...] Hospital01-05-2023 Miscellaneous Notes* Telephone Encounter - Vito EstrellaVidal - 11/08/2022 2:03 PM EST Procedure(s) being [...] No 9. Does this procedure require a chain saw driver? Yes If yes, has patient been notified that a chain saw driver is needed and must be present [...] COVID vaccine.) Vito Mancera documented in this encounterKnox Community Hospital01-05-2023 Instructions* Patient Instructions* Adelina Marinelli APRN.CNP - 11/08/2022 1:54 PM EST Activity as tolerated Use Ice and/or heat as tolerated as needed documented in this encounterKnox Community Hospital01-05-2023 History of Present illness Narrative* Adelina Marinelli APRN.CNP - 11/08/2022 1:30 PM EST Images from the original note were not included. [facility] Today's Date: 11/08/2022 Last Visit: 07/19/22 [...] suspiciousactivity was identified. 11/08/2022 by Adelina Marinelli APRN.CHEMISTRY LECTURER Allergies: ALLERGIES Allergen Reactions Lidocaine Hives Steroids [...] Continue Gabapentin as directed (PCP manages) Functional Confucianist: Continue PT and TENs unit for pain relief Additional Studies: Referrals: Additional: Follow up with Dr. aRsheed after injection Consider SPRINT PNS Patient is [...] decision making from today's date. Adelina Marinelli APRN.CHEMISTRY LECTURER Pain Management [facility] * Gloria Oh MA - 11/08/2022 1:29 [...] patient is not nervous/anxious. documented in this encounterKnox Community Hospital12-09-2022 Instructions* Patient Instructions* Grace Coronel [...] - Call the National Suicide Hotline at 9-331-TTEBTNM ( ) or 0-705-188-TALK (2847) - Text 7XXIP to 654574 Medication Update: - Prozac 10 mg - take 1 capsule once daily for 7 days; then take 2 capsules once daily after that. Next appointment: --Schedule in 4 to 6 weeks or sooner if needed -- You may call the department appointment line at [phone] to schedule your appointment. -- Please call my nurse Coretta at [phone] or send me a message in [employer] with any questions or concerns between appointments. documented in this encounterKnox Community Hospital12-09-2022 History of Present illness Narrative* [...] her. They get along well. 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 REFERRAL SOURCE: PCP - [...] report that daughter has support from her information services vice president and therapist and has been doing better. [...] current PAP mask.) 1 Device 99 Ipratropium Hadley (ATROVENT) 0.03 % nasal spray Use 2 Sprays in the nose every 12 hours. 1 Bottle2 metroNIDAZOLE (METROGEL) 0.75 % Topical Gel Apply to affected area twice daily. 45 g 2 [place]-3 Fatty Acids (FISH OIL) 500 mg cap Take 1 capsule by mouth once daily. 30 capsule 11 blood sugar diagnostic (BLOOD GLUCOSE TEST) test strip Test blood sugar(s) 1 times daily. Dx: Type 2 DM - Controlled E11.9 Insulin: Yes 50 Strip 11 Lancets lancets Test blood sugar(s) 1 times daily. Dx: Type 2 DM - Controlled E11.9 Insulin: No 100Each 11 Tjmiliux-Kw-Ggd-Fe-FA tab Take 1 tablet by mouth once daily. 0 No current facility-administered medications for this visit. VITAL SIGNS: There were no vitals filed for this visit. ROS: All other systems negative. PSYCHIATRIC HISTORY: Prior Diagnosis: Generalized Anxiety Disorder, and Depression Prior Provider: No prior psychiatrist Therapist: Previously followed at the counseling center. Stopped during the pandemic. Current Auto Radio Mechanic: No Last Hospitalization: Denies hospitalization. ECT: No Previous Discontinued Psychiatric Med Trials: Ativan as needed PRN. Paxil, Buspar (low dose), Wellbutrin SUBSTANCE USE HISTORY: Nicotine: None Caffeine: Mert, 1/day Alcohol: No history of use or dependence Marijuana: No history of use or dependence Cocaine: No history of use or dependence Opiods: No history of use or dependence SPIRITUALITY: Taoism [facility]: Tori Gray is the oldest of 2 siblings. Her brother lives in [place]. The patient was born in [place] and raised in [place], [place]. She completed Associates degree in psychology. [...] which included preparing to see the patient, wmfj-hb-gvoo patient care, completing clinical documentation, obtaining and/or reviewing separately obtained history, counseling and educating the patient/family/caregiver, ordering medications, ananth ts, or procedures, communicating with other HCPs (not separately reported), and independently interpreting results (not separately reported). ADD ON PSYCHOTHERAPY CODE : No SIGNATURE: Grace Coronel APRN.CNP PATIENT NAME: Tori Gray DATE: October 12, 2022 TIME: 8:40 AM PAGER : [facility] Miscellaneous Notes* Telephone Encounter - Mariaa Ambrosio, [place] - 10/09/2022 8:44 AM EST Patient has been identified by name and date of : Yes Patient phones for refill(s): Requested Prescriptions Pending Prescriptions Disp Refills topiramate (TOPAMAX) 100 mg tablet 60 tablet 2 Sig: Take 1 tablet by mouth twice daily. Date of last office visit in primary care: [facility] 07/19/2022 with Karen Bansal APRN.CNP No appointment scheduled [facility] Notes: Plan: All options for [...] Thank you. LEVAR Jasmine documented [facility]22 Miscellaneous Notes* Telephone Encounter - Quinn Lazo LPN - 10/05/2022 8:41 AM EST Patient phones requesting refills as follows: Requested Prescriptions Pending Prescriptions Disp Refills tiZANidine (ZANAFLEX) 4 mg tablet 20 tablet 0 Sig: Take 1 tablet by mouth every 8 hours as needed. APRIL 09/04/22 NOV 11/01/22 Please review and advise. Quinn Lazo LPN documented in this [facility]Kn[facility]11-29-2022 Miscellaneous Notes* Telephone Encounter - [...] can do? Adriana Licona documented in this [facility]11-16-2022 Miscellaneous Notes* Telephone Encounter - [...] you. Lubna Yoon LPN documented in this [facility]Kn[facility]11-[facility]22 History of Present illness Narrative* WELLINGTON Tesfaye - 09/12/2022 1:57 PM EST BEHAVIORAL HEALTH SOCIAL WORK QUICK NOTE Provider Action/FYI Needs appointment scheduled with Grace Coronel CNP. Will forward chart to Grace and her MOTOR POOL CLERK to assist with scheduling. Patient identified for [facility] from: PCP Reason for referral: [facility] Resources: Psychiatry med management;Psychology - talk therapy [facility] encounter type: Chart Review Attempts to Outreach: 1 attempt Referral made: Psychiatry - Internal;Psychology - External;Psychology - Internal Psychiatry-Internal referral type: Medication Management Psychology-Internal referral type: Therapy Psychology-External referral type: Therapy Reason for external referral: Wait times at [facility] too long Final Disposition: Resources given Patient Discharged?: Yes Patient reported that caregiver was able to meet their needs today?: N/A Pt identified by name and . Patient interested [facility], specifically Grace Coronel CNP at therequest of pt's PCP. SW will route chart to Grace and her nurse, Coretta Spain who can assist with patient scheduling. Patient states she's on a wait list for counseling at agencies near her home. No needs further from this SW at this time. WELL[place] Tesfaye, ACM-PARK documented in this encounterKn[facility]11-09-2022 Miscellaneous Notes* Addendum Note - Ivette Grimes MD - 09/12/2022 1:19 PM ESTAddended by: IVETTE GRIMES on: 09/12/2022 01:19 PM Modules accepted: Orders * Telephone Encounter - Ivette Grimes MD - 09/12/2022 1:18 PM EST Needs set up with Grace documented in this encounterKn[facility]11-03-2022 Miscellaneous Notes* Telephone Encounter - Nakia Caraballo RN - 09/06/2022 12:44 PM EDT Patient is scheduled for botox on 09/13/22 at 1:30 pm with Kaylen. Latonia Caraballo RN documented in this encounterKn[facility]11-01-2022 Miscellaneous Notes* Telephone Encounter - Jovana Blackwell MA - 09/04/2022 3:01 PM EDT Clarified with patient [facility] will be receiving 2 new providers able to administer injections. Patient will continue with plan to stay within [facility] for injections & just follow up in [place] when neuro providers are available to schedule. Jovana Blackwell MA documented in this encounterKn[facility]11-01-2022 History of Past illness Narrative* [...] of this encounter (statuses as of 09/04/2022) [facility] of Past illness Narrative* [...] of this encounter (statuses as of 09/04/2022) [facility] illness Narrative* [...] of this encounter (statuses as of 09/06/2022) [facility] Narrative* [...] of this encounter (statuses as of 09/07/2022) [facility] Narrative* [...] of this encounter (statuses as of 09/12/2022) [facility] Narrative* [...] of this encounter (statuses as of 09/12/2022) [facility] Narrative* [...] of this encounter (statuses as of 09/12/2022) [facility] Narrative* [...] of this encounter (statuses as of 09/19/2022) [facility] Narrative* [...] of this encounter (statuses as of 10/02/2022) [facility] Narrative* [...] of this encounter (statuses as of 10/05/2022) [facility] Narrative* [...] of this encounter (statuses as of 10/09/2022) [facility] Narrative* [...] of this encounter (statuses as of 10/18/2022) [facility] Narrative* [...] of this encounter (statuses as of 10/21/2022) [facility] Narrative* [...] of this encounter (statuses as of 11/09/2022) [facility] Narrative* [...] of this encounter (statuses as of 11/15/2022) [facility] Narrative* [...] of this encounter (statuses as of 11/21/2022) [facility] Narrative* [...] of this encounter (statuses as of 11/23/2022) [facility] Narrative* [...] of this encounter (statuses as of 11/27/2022) [facility] Narrative* [...] of this encounter (statuses as of 11/29/2022) [facility] Narrative* [...] of this encounter (statuses as of 11/30/2022) [facility] Narrative* [...] of this encounter (statuses as of 12/04/2022) [facility] Narrative* [...] of this encounter (statuses as of 12/08/2022) [facility] Narrative* [...] of this encounter (statuses as of 12/08/2022) [facility] Narrative* [...] of this encounter (statuses as of 12/11/2022) [facility] Narrative* [...] of this encounter (statuses as of 12/11/2022) [facility] Narrative* [...] of this encounter (statuses as of 12/14/2022) [facility] Narrative* [...] of this encounter (statuses as of 12/21/2022) [facility] Narrative* [...] of this encounter (statuses as of 12/25/2022) [facility] Narrative* [...] of this encounter (statuses as of 12/26/2022) [facility] Narrative* [...] of this encounter (statuses as of 12/26/2022) [facility] Narrative* [...] of this encounter (statuses as of 01/04/2023) [facility]ative* [...] of this encounter (statuses as of 01/07/2023) [facility]arrative* [...] of this encounter (statuses as of 01/10/2023) [facility] Narrative* [...] of this encounter (statuses as of 01/11/2023) [facility] N[facility]ative* [...] of this encounter (statuses as of 01/15/2023) [facility] Narrative* [...] of this encounter (statuses as of 01/17/2023) [facility] Narrative* [...] of this encounter (statuses as of 01/22/2023) [facility] Narrative* [...] of this encounter (statuses as of 01/24/2023) [facility] Narrative* [...] of this encounter (statuses as of 01/31/2023) [facility] Narrative* [...] of this encounter (statuses as of 01/31/2023) [facility] N[facility]ative* [...] of this encounter (statuses as of 02/11/2023) [facility] Narrative* [...] of this encounter (statuses as of 02/14/2023) [facility]* [...] of this encounter (statuses as of 02/16/2023) [facility]arr[facility]* [...] of this encounter (statuses as of 02/25/2023) [facility]* [...] of this encounter (statuses as of 02/27/2023) [facility]* [...] of this encounter (statuses as of 02/28/2023) [facility]arr[facility]* [...] of this encounter (statuses as of 03/01/2023) [facility]* [...] of this encounter (statuses as of 03/01/2023) [facility]* [...] of this encounter (statuses as of 03/04/2023) [facility]* [...] of this encounter (statuses as of 03/05/2023) [facility]* [...] of this encounter (statuses as of 03/05/2023) [facility]* [...] of this encounter (statuses as of 03/05/2023) [facility]* [...] of this encounter (statuses as of 03/13/2023) [facility]* [...] of this encounter (statuses as of 03/20/2023) [facility]* [...] of this encounter (statuses as of 03/20/2023) [facility]* [...] of this encounter (statuses as of 04/05/2023) [facility]arr[facility]* [...] of this encounter (statuses as of 05/08/2023) [facility] Narrative* [...] of this encounter (statuses as of 05/17/2023) [facility] Narrative* [...] of this encounter (statuses as of 05/29/2023) [facility] Narrative* [...] of this encounter (statuses as of 05/30/2023) [facility] Narrative* [...] of this encounter (statuses as of 06/06/2023) [facility]* [...] of this encounter (statuses as of 06/08/2023) [facility]arr[facility]* [...] of this encounter (statuses as of 06/10/2023) [facility]* [...] of this encounter (statuses as of 06/22/2023) [facility]* [...] of this encounter (statuses as of 07/05/2023) [facility]* [...] of this encounter (statuses as of 07/09/2023) [facility] Narrative* [...] of this encounter (statuses as of 08/23/2023) [facility]arr[facility]* [...] of this encounter (statuses as of 08/26/2023) [facility]* [...] of this encounter (statuses as of 09/08/2023) [facility] Narrative* [...] of this encounter (statuses as of 09/10/2023) [facility] Narrative* [...] of this encounter (statuses as of 09/25/2023) [facility] Narrative* [...] of this encounter (statuses as of 10/14/2023) [facility] Narrative* [...] of this encounter (statuses as of 10/15/2023) [facility] Narrative* [...] of this encounter (statuses as of 10/16/2023) [facility] Narrative* [...] of this encounter (statuses as of 12/06/2023) [facility] Instructions* Patient Instructions* Ivette Grimes MD - 09/04/2022 12:13 PM EDT Counseling and Psychiatry Services [facility] [address] [place], [place] [phone] *counseling [facility]SEL[facility] [address] [facility] [address] *counseling [address] [id number] *counseling [facility] [place] [address] [place], [place] [address] *counseling and psychiatry [address] [address] *counseling [address] [address] *counseling [place] [address] [facility] [phone] *counseling [place] [address] [place] [address] *counseling [facility] [address] [place] [address] [facility] [address] [place] [address] *counseling [facility] [address] [place], [place] [phone] [facility] [address] [place], [place] [address] *counseling [facility] [address] [place] [address] [facility] [address] [facility] [place] [address] *counseling [employer] [address] [place] [address] *[facility]ing [facility] [address] [place] [address] *counseling and psychiatry [facility] [place], [facility] [address] [place], [place] [id number] *psychiatry [facility] [phone] *grief counseling, individual and groups *If you ever experience a mental health crisis please call [phone], 911, Please verify with insurance provider for coverage Provide services on a sliding fee scale for [facility]. [facility] Althea dinh [place], [place] [address] *Counseling [facility] Office [address] [place], [place] [phone] *Counseling, Psychiatry and Case Management [address] [address] *Counseling [facility] [address] [place] [address] *Counseling [place] [address] [place], [place] [phone] *Counseling [place] [address] [place], [place] [address] *Counseling [facility] [address] [place], [place] [phone] *Counseling/mental health and substance use treatment [facility] [address] [place], [place] [address] [facility] [address] [place], [place] [address] [facility] [address] [place] [address] *Addiction services, services for victims of domestic violence and sexual assault, housing services [facility] -safe, alcohol and drug free environment [facility] [phone] *free grief services, individual and group *If you ever experience a mental health crisis please contact [phone], 911 or go to the nearest ER. Please verify with insurance provider for coverage documented in this encounterKn[facility]11-01-2022 History of Present illness Narrative* [...] for depression. Was seen by cardiology in [place] who referred her to EPS. Appt is [...] in bed with current PAP mask. Ipratropium Hadley (ATROVENT) 0.03 % nasal spray Use 2 Sprays in the nose every 12 hours. metroNIDAZOLE (METROGEL) 0.75 % Topical Gel Apply to affected area twice daily. [place]-3 Fatty Acids (FISH OIL) 500 mg cap Take 1 capsule by mouth once daily. blood sugar diagnostic (BLOOD GLUCOSE TEST) test strip Test blood sugar(s) 1 times daily. Dx: Type 2 DM - Controlled E11.9 Insulin: Yes Lancets lancets Test blood sugar(s) 1 times daily. Dx: Type 2 DM - Controlled E11.9 Insulin: No Vjpuxmxo-Nt-Mgn-Fe-FA tab Take 1 tablet by mouth once daily. No current facility-administered medications for this visit. ALLERGIES: ALLERGIES Allergen Reactions Lidocaine Hives Steroids [Betametha* Hives PAST MEDICAL HISTORY Diagnosis Date Acute cholecystitis Cholecystitis Anxiety 06/07/2014 Chronic back pain Kidney stones LETITIA treated with BiPAP Type 2 diabetes mellitus (HCC) PAST SURGICAL HISTORY Procedure Laterality Date DELIVERY ONLY 2005 , low cervical INSERT INTRAUTERINE DEVICE 12/16/08 mirena LAPAROSCOPY SURG CHOLECYSTECTOMY 2006 Cholecystectomy, lap (Rowena Monet) PAST SURGICAL HISTORY OF 2019 stent into kidney REMOVE IUD 07/13/2010 FAMILY HISTORY Problem Relation Age of Onset Alcohol/Drug Mother Heart Father [place] Cancer Father PANCREATIC CANCER Diabetes Father Diabetes [...] treatment. Ivette Grimes MD documented in this encounterKn[facility] Hospital10-31-2022 History of Present illness Narrative* [...] in bed with current PAP mask. Ipratropium [place]ley (ATROVENT) 0.03 % nasal spray Use 2 Sprays in the nose every 12 hours. metroNIDAZOLE (METROGEL) 0.75 % Topical Gel Apply to affected area twice daily. [place]-3 Fatty Acids (FISH OIL) 500 mg cap Take 1 capsule by mouth once daily. blood sugar diagnostic (BLOOD GLUCOSE TEST) test strip Test blood sugar(s) 1 times daily. Dx: Type 2 DM - Controlled E11.9 Insulin: Yes Lancets lancets Test blood sugar(s) 1 times daily. Dx: Type 2 DM - Controlled E11.9 Insulin: No Lxreqmmq-Hy-Uhe-Fe-FA tab Take 1 tablet by mouth once [...] Age of Onset Alcohol/Drug Mother Heart Father [place] Cancer Father PANCREATIC CANCER Diabetes Father Diabetes [...] in am in person documented in this encounterKnox [facility] Hospital10-18-2022 Miscellaneous Notes* Telephone Encounter - Nakia Caraballo RN - 08/21/2022 1:02 PM EDT Botox approved 08/15/22-01/30/23. Patient made aware that we will get her scheduled. Latonia Caraballo RN documented in this encounterKnox Community Hospital10-05-2022 Miscellaneous Notes* Telephone Encounter - Adelina Marinelli APRN.CHEMISTRY LECTURER - 08/08/2022 12:53 PM EDT Please advise patient insurance will not approve the RFA of her shoulder. Another option would be to repeat the LEFT scapular NB, but with steroids for a therapeutic effect. If she would like to proceed with this option please let me know and will place the order. Thank you, Adelina Marinelli APRN.CHEMISTRY LECTURER documented in this encounterKnox Community Hospital10-05-2022 Miscellaneous Notes* Telephone Encounter - Brittney Huffman Pss - 08/08/2022 10:08 AM EDT Spoke with the patient she has not heard back from [facility] will try them again if not able to reach them she will call [facility] back to schedule. documented in this encounterKnox Community Hospital09-30-2022 Miscellaneous Notes* Telephone Encounter - Karen Bansal APRN.CHEMISTRY LECTURER - 08/03/2022 10:33 AM EDT Rizatriptan sent to pharmacy. Stop sumatriptan. * Telephone Encounter - Nakia Caraballo RN - 08/03/2022 9:03 AM EDT Patient reporting that sumatriptan is not helping migraines. Asking for another treatment. Botox referral was sent but still pending. Latonia Caraballo RN documented in this encounterKnox Community Hospital09-29-2022 History of Present illness Narrative* [...] her cpap. Needs new machine. Sees her auditor soon. . Will be seeing cardiology. Had [...] in bed with current PAP mask. Ipratropium Hadley (ATROVENT) 0.03 % nasal spray Use 2 Sprays in the nose every 12 hours. metroNIDAZOLE (METROGEL) 0.75 % Topical Gel Apply to affected area twice daily. [place]-3 Fatty Acids (FISH OIL) 500 mg cap Take 1 capsule by mouth once daily. blood sugar diagnostic (BLOOD GLUCOSE TEST) test strip Test blood sugar(s) 1 times daily. Dx: Type 2 DM - Controlled E11.9 Insulin: Yes Lancets lancets Test blood sugar(s) 1 times daily. Dx: Type 2 DM - Controlled E11.9 Insulin: No Fteyzvqx-Go-Wjw-Fe-FA tab Take 1 tablet by mouth once [...] Age of Onset Alcohol/Drug Mother Heart Father [place] Cancer Father PANCREATIC CANCER Diabetes Father Diabetes [...] RTO in six months documented in this encounterKnox [facility] Hospital09-28-2022 Miscellaneous Notes* Telephone Encounter - Nakia Caraballo RN - 08/01/2022 1:21 PM EDT Botox referral sent to pharmacy. Latonia Caraballo RN documented in this encounterKnox Community Hospital09-19-2022 Miscellaneous Notes* Telephone Encounter - [...] 07/2022 Last refill: 07/2021 documented in this encounterKnox Community Hospital09-15-2022 Instructions* Patient Instructions* Gabi Cornelius APRN.CHEMISTRY LECTURER - 07/19/2022 2:08 PM EDT Preventative: Topamax [...] Feverfew: Feverfew is a common [place] to [place] and popular in [facility] as a treatment for disorders typically controlled [...] pepperoni, Pickled leblanc Pods of broad jaquez (Bulgarian beans, Rwandan pea pods, South Korean (antwan) beans, saldana and navy beans Ripe [...] too muchlight. These can be obtained at [employer] or [employer]: see list above. 2. Limit use of acute treatments (zdeu-uye-socwbhk medications, triptans, etc.) to no more than [...] and quiet environment. Relax and reduce stress. Ityyfby3Iitgc is a free félix that can instruct you on some simple relaxtionand breathing techniques. Http://[employer] is a free website that provides teaching [...] ensuing treatment plans will be released via [employer] and discussedduring your follow-up appointment. Thomas Golft: Please ask the schedulers to give you an activation code. The main way of communication isby Thomas Golft rather than phone lines, so if you have not signed up, please do so. [employer] is also theway that you can review your labs and testing. We are not able to contact everyone to tell them results are normal. If you do not hear back from us regarding testing you have had, it should be considered normal or within normal range. If you have any questions about the results, you are free to message us. [employer] is meant for simple questions regarding medications, possible side effects, or other simplestraight forward questions in limited sentences, rather than multiple paragraphs of discussion. [employer] is not meant for, or efficient for [...] do not comment on most testing on [facility] in a message or commentary unless there is a concern. You will not receive a message from me of the result unless there is a specific concern of the result I need you to address further in care with us or your primary medical team. Make sure to check your my chart email or félix. documented in this encounterKn[facility]09-[facility]22 History of Present illness Narrative* Karen Bansal APRN.CNP - 07/19/2022 1:00 PM EDT Images from the original note were not included. [facility] General Neurology New Patient Headache [...] Description Onset: Early 30's. 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 Denies upon wakening. Total headache days per [...] Outside imaging reviewed Lab work obtained from [facility] and reviewed Blood studies 02/07/2022 Hemoglobin [...] Age of Onset Alcohol/Drug Mother Heart Father [place] Cancer Father PANCREATIC CANCER Diabetes Father Diabetes [...] in bed with current PAP mask. Ipratropium Hadley (ATROVENT) 0.03 % nasal spray Use 2 Sprays in the nose every 12 hours. metroNIDAZOLE (METROGEL) 0.75 % Topical Gel Apply to affected area twice daily. [place]-3 Fatty Acids (FISH OIL) 500 mg cap Take 1 capsule by mouth once daily. blood sugar diagnostic (BLOOD GLUCOSE TEST) test strip Test blood sugar(s) 1 times daily. Dx: Type 2 DM - Controlled E11.9 Insulin: Yes Lancets lancets Test blood sugar(s) 1 times daily. Dx: Type 2 DM - Controlled E11.9 Insulin: No Iwjmppcl-Ue-Ajy-Fe-FA tab Take 1 tablet by mouth once [...] Finger Abduction (U) 5 Finger Abduction 5 Railway Signal Technician 5 Railway Signal Technician 5 Right Lower Extremity: (of 5) Left [...] free days a month: 3 Gabi Cornelius APRN.[facility] Neurology My impression and recommendations were discussed [...] which included preparing to see the patient, [id number] patient care, completing clinical documentation, obtaining and/or [...] recommendations. Karen Bansal APRN.GABRIELA documented in this encounterKnox [facility] Hospital09-15-2022 NoteHNO ID: [id number] Author: Adelina Marinelli APRN.CNP Service: ? Author Type: Nurse Practitioner Type: Progress Notes Filed: 07/19/2022 10:17 AM Note Text: [facility] [place] [facility] Today's Date: 07/19/2022 Last Visit: 05/24/22 Name: Tori Gray : 1980 Purpose: Established Patient Encounter Interval History: Since last encounter, Annamariadinh Love Isaac; reports that the chronic problem(s) [...] (A) 74 - 99 mg/dL Final Comment: Location:[facility] Pain, [address] [place] [address], [facility] The Accu-Chek Inform II glucose [...] activity was identified. 07/19/2022 by Adelina Marinelli APRN.CHEMISTRY LECTURER Last Drug screen: Not Applicable Risk Assessment: [...] included)...[facility]09-15-2022 NoteHNO ID: [id number] Author: Tiana Cifuentes MA Service: ? Author Type: Retail Attendant Type: Progress Notes Filed: 07/19/2022 10:17 AM [...] year? Yes If yes, When and Where[facility] (Medical Records Release needs to [...] COVID vaccine.) Pankaj Murillo documented in this encounterKnox [facility] Hospital09-06-2022 Miscellaneous Notes* Telephone Encounter - Ingrid Salmon Ma - 07/10/2022 1:55 PM EDT Last office visit: 05/01/22 F/u scheduled: 08/02/22 Ingrid Salmon Ma documented in this encounterKnox [facility] Hospital08-30-2022 Miscellaneous Notes* Telephone Encounter - [...] and PM. Note, lab work obtained from [facility] and reviewed. Given persistence of headaches [...] Thank you. LEVAR Jasmine documented in this encounterKnox Community Hospital08-19-2022 Miscellaneous Notes* Telephone Encounter - [...] refill: 06/06/2022 20 tablets documented in this encounterKnox [facility] Hospital08-04-2022 Miscellaneous Notes* Telephone Encounter - LEVAR Jasmine - 06/07/2022 4:24 PM EDT Orders and APRIL Notes faxed to [facility] to service pts PAP due to compliance reports and data no longerbeing able to be pulled from device. LEVAR Jasmine documented in this encounterKnox Community Hospital08-04-2022 History of Present illness Narrative* Tara Gillette APRN.CHEMISTRY LECTURER - 06/07/2022 3:30 PM EDT Images from the original note were not included. [facility] [place] Follow-up Visit Follow-up note June 07, 2022 [...] BP. Check CMP and CBC due to nursing home med use. 3. LETITIA (obstructive sleep apnea) [...] when sleepy. 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 Usually getting about 7 hours of sleep. [...] in bed with current PAP mask. Ipratropium Hadley (ATROVENT) 0.03 % nasal spray Use 2 Sprays in the nose every 12 hours. metroNIDAZOLE (METROGEL) 0.75 % Topical Gel Apply to affected area twice daily. [place]-3 Fatty Acids (FISH OIL) 500 mg cap Take 1 capsule by mouth once daily. blood sugar diagnostic (BLOOD GLUCOSE TEST) test strip Test blood sugar(s) 1 times daily. Dx: Type 2 DM - Controlled E11.9 Insulin: Yes Lancets lancets Test blood sugar(s) 1 times daily. Dx: Type 2 DM - Controlled E11.9 Insulin: No Hjtpifwd-Cx-Oov-Fe-FA ( FORMULA) ORAL Tab Take 1 tablet [...] and pattern. Labs/studies: Outside labs reviewed from [facility] collected on 06/05/22: CBC N UA [...] and PM. Note, lab work obtained from [facility] and reviewed. Given persistence of headaches [...] 06/07/22 CONSULT TO [facility] Tara Gillette APRN.CHEMISTRY LECTURER I spent a total of 30 minutes on the date of the service which included preparing to see the patient, [id number] patient care, completing clinical documentation, obtaining and/or reviewing separately obtained history, performing a medically appropriate examination, counseling and educating the pat ient/family/caregiver and ordering medications, tests, or procedures. documented in this encounterKnox Community Hospital08-02-2022 Miscellaneous Notes* Addendum Note - Ivette Grimes MD - 06/05/2022 1:46 PM EDT Addended by: IVETTE GRIMES on: 06/05/2022 01:46 PM Modules accepted: Orders * Telephone Encounter - Ivette Grimes MD - 06/05/2022 1:44 PM EDT Can send lab to [facility] to be done in two weeks documented in this encounterKnox Community Hospital07-26-2022 Miscellaneous Notes* Telephone Encounter - [...] says she had CMP andCBC done at [facility] on 02/09. These are in pt chart. Pt asking if she needs to have labs redrawn or if the ones done in February are sufficient. Please advise. Thank you. LEVAR Jasmine documented in this encounterKnox Community Hospital07-21-2022 NoteHNO ID: [id number] Author: Adelina Marinelli APRN.CHEMISTRY LECTURER Service: ? 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07-21-2022 NoteHNO ID: [id number] Author: Gloria Oh MA Service: ? Author Type: Retail Attendant Type: Progress Notes Filed: 05/24/2022 10:08 PM [...] [facility] Instructions* Patient Instructions* Adelina Marinelli APRN.CNP - 05/24/2022 11:52 AM EDT Activity as tolerated Use Ice and/or heat as tolerated as needed documented in this encounterKnox Community Hospital07-21-2022 History of Present illness Narrative* Adelina Marinelli APRN.CNP - 05/24/2022 11:28 AM EDT Images from the original note were not included. 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 05/24/2022 by Adelina Marinelli APRN.CHEMISTRY LECTURER Last Drug screen: Not Applicable Risk Assessment: [...] refill. UDS, NAOIC/ORT: up to date Functional Confucianist: Physical Therapy (Land-based) Additional Studies: None Referrals: [...] decision making from today's date. Adelina Marinelli APRN.CHEMISTRY LECTURER Pain Management [facility] * Gloria Oh MA - 05/24/2022 11:00 [...] patient is not nervous/anxious. documented in this encounterKnox Community Hospital07-08-2022 Miscellaneous Notes* Telephone Encounter - Livia Luna - 05/11/2022 3:17 PM EDT Left brief message asking patient to call back with any questions or concerns about a recent appointment. Livia Luna LPN May 11, 2022 3:18 PM documented in this encounterKnox Community Hospital07-07-2022 NoteHNO ID: [id number] Author: Mirna Lanza LPN Service: ? Author [...] tablePatient s procedure was performed in an [facility] Procedure room. Pause completed at each [...] Lanza LPN - 05/10/2022 10:03 AM EDT Water Systems Engineer's Name: Marilynn Are you on a blood [...] to receive one? n documented in this encounterKnox Community Hospital07-07-2022 Instructions* Patient Instructions* Mirna Lanza [...] emergency care and why. documented in this encounterKnox Community Hospital07-07-2022 NoteHNO ID: [id number] Author: Elle Rasheed MD Service: ? Author Type: Physician Type: Progress Notes Filed: 05/10/2022 11:04 AM Note Text: [facility] Patient name: Tori Gray Date of : 1980 Today's date: 05/10/2022 Purpose: Ultrasound-guided injection Diagnosis: (M75.02) Adhesive capsulitis of left shoulder (primary encounter diagnosis) (M19.012) Primary osteoarthritis of left shoulder Procedure: Left Shoulder/Chest Suprascapular Nerve Block Pediatric Orthodontist: Elle Rasheed M.D., M.B.A Comments: Allergy Due to the patient's reported history of allergy to Lidocaine, the following medication was substituted: Bupivacaine. Notes from Judicial Assistant 01/2020 reviewed, she had skin testing to multiple local anesthetics and steroids, without any reaction, but advised that she avoid Lidocaine where possible due to unknown negative predictive value of the tests. Other anesthetics had been used with other procedures that did not have a reaction (eg Bupivacaine). [place] protocol documentation / Pre-Procedure Checklist: ? ID [...] [facility] 05-10-2022 History of Present illness Narrative* Mirna [...] 8:23 AM EDT [facility] Patient name: Tori Gray Date of : 1980 Today's date: 05/10/2022 Purpose: Ultrasound-guided injection Diagnosis: (M75.02) Adhesive capsulitis of left shoulder (primary encounter diagnosis) (M19.012) Primary osteoarthritis of left shoulder Procedure: Left Shoulder/Chest Suprascapular Nerve Block Pediatric Orthodontist: Elle Rasheed M.D. MStephanyB.A Comments: Allergy Due to the patient's reported history of allergy to Lidocaine, the following medication was substituted: Bupivacaine. Notes from Judicial Assistant 01/2020 reviewed, she had skin testing to multiple local anesthetics and steroids, without any reaction, but advised that she avoid Lidocaine where possible due to unknown negative predictive value of the tests. Other anesthetics had been usedwith other procedures that did not have a reaction (eg Bupivacaine). [place] protocol documentation / Pre-Procedure Checklist: ID verified [...] follow-up with the requesting physician. Elle Rasheed MD [facility] documented in this encounterKnox Community Hospital07-05-2022 Miscellaneous Notes* Telephone Encounter - Lubna Yoon LPN - 05/08/2022 1:04 PM EDT Sent a [employer] message * Telephone Encounter - Ivette Grimes MD - 05/08/2022 12:56 PM EDT I would recommend she follow up and see one of us here. documented in this [facility]06-30-2022 Miscellaneous Notes* Telephone Encounter - Jumana [...] advise. Jumana Harrell LPN documented in this [facility]06-28-2022 Instructions* Patient Instructions* Ivette Grimes MD - 05/01/2022 3:22 PM EDT Change lyrica to every other day for three days then stop. Then start gabapentin one tab at bedtime for three days. Then one tab twice a day for three days Then one tab in am and two at night for three days. Then 2 tabs twice a day. documented in this encounterKnox Community Hospital06-28-2022 History of Present illness Narrative* [...] in bed with current PAP mask. Ipratropium Hadley (ATROVENT) 0.03 % nasal spray Use 2 [...] 2 DM - Controlled E11.9 Insulin: No Runcuxts-Pa-Voe-Fe-FA ( FORMULA) ORAL Tab Take 1 tablet by mouth once daily. [place]-3 Fatty Acids (FISH OIL) 500 mg cap [...] Age of Onset Alcohol/Drug Mother Heart Father [place] Cancer Father PANCREATIC CANCER Diabetes Father Diabetes [...] three months and prn. documented in this encounterKnox Community Hospital06-16-2022 Miscellaneous Notes* Addendum Note - Ivette Grimes MD - 04/19/2022 2:41 PM EDT Addended by: IVETTE GRIMES on: 04/19/2022 02:41 PM Modules accepted: Orders documented in this encounterKnox Community Hospital06-13-2022 Miscellaneous Notes* Telephone Encounter - Ivette Price Jr., MD - 04/16/2022 6:04 PM EDT Please contact DME ([facility]) to determine if pt qualifies for new PAP device. If so, can order a new Auto[employer]ilevel PAP. Thank you, Ivette Price MD documented in this encounterCleveland [id number] Miscellaneous Notes* Telephone Encounter - Quinn Lazo LPN - 04/16/2022 10:28 AM EDT Patient phones requesting refills as follows: Pending Prescriptions Disp Refills TIZANIDINE 4 MG TABLET 20 tablet 0 Sig: Take 1 tablet by mouth every 8 hours as needed. CRISTINA: No APRIL 02/28/22 NOV 05/01/22 Please review and advise. Quinn Lazo LPN documented in this encounterKnox Community Hospital06-06-2022 Instructions* Patient Instructions* Ivette Price Jr., MD [...] Excedrin and Tylenol use. documented in this encounterKnox Community Hospital06-06-2022 History of Present illness Narrative* Ivette Price [...] this resolves mask issues. Rx sent to [facility]. During visit, discussed with [...] in bed with current PAP mask. Ipratropium [place]ley (ATROVENT) 0.03 % nasal spray Use 2 Sprays in the nose every 12 hours. blood sugar diagnostic (BLOOD GLUCOSE TEST) test strip Test blood sugar(s) 1 times daily. Dx: Type 2 DM - Controlled E11.9 Insulin: Yes Lancets lancets Test blood sugar(s) 1 times daily. Dx: Type 2 DM - Controlled E11.9 Insulin: No Egfwzdxj-Dn-Hkf-Fe-FA ( FORMULA) ORAL Tab Take 1 tablet by mouth once daily. metroNIDAZOLE (METROGEL) 0.75 % Topical Gel Apply to affected area twice daily. [place]-3 Fatty Acids (FISH OIL) 500 mg cap Take 1 capsule by mouth once daily. HISTORIES PAST MEDICAL HISTORY Diagnosis Date Acute cholecystitis Cholecystitis Anxiety 06/07/2014 Type 2 diabetes mellitus (HCC) FAMILY HISTORY Problem Relation Age of Onset Alcohol/Drug Mother Heart Father [place] Cancer Father PANCREATIC CANCER Diabetes Father Diabetes [...] BP. Check CMP and CBC due to nursing home med use. 3. LETITIA (obstructive sleep apnea) [...] when sleepy. 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 Ivette Price MD I spent a total of 40+ minutes on the date of the service which included preparing to see the patient, qxks-en-[id number] patient care, completing clinical documentation, obtaining and/or reviewing separately obtained history, performing a medically appropriate examination, counseling and educating the pa tient/family/caregiver, ordering medications, tests, or procedures, independently interpreting results (not separately reported) and communicating results to the patient/family/caregiver. documented in this encounterKnox Community Hospital06-02-2022 Miscellaneous Notes* Telephone Encounter - Helen Camacho LPN - 04/05/2022 9:51 AM EDT Last office visit 02/23/2022 documented in this encounterKnox Community Hospital05-27-2022 Miscellaneous Notes* Telephone Encounter - Milena Rico LPN - 03/30/2022 11:08 AM EDT april-- 02/28/22 Next 05/01/22 Last refill-- 03/16/22 20 with 0 refills Last labs 02/07/22 documented in this encounterKnox Community Hospital05-26-2022 Miscellaneous Notes* Telephone Encounter - [...] their 2nd dose of the COVID vaccine.) Treese Cruz documented in this encounterKnox Community Hospital05-26-2022 NoteHNO ID: [id number] Author: Henna Boles MA Service: ? Author Type: Retail Attendant Type: Progress Notes Filed: 03/29/2022 11:48 AM [...] not included. [facility] [place] [facility] Name: Tori Gray : 1980 Purpose: [...] 12/21/2021, noted she had an EMG at [facility] which was normal (Jul 2021). MRI shoulder had very minor degenerative changes. Non-surgical management was advised. 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 [...] (Meloxicam) and Lodine (Etodolac) Opioids: Vicodin or [place] (Hydrocodone) and Percocet (Oxycodone) Muscle Relaxants: Zanaflex [...] Referrals: No additional considerations at present Functional Confucianist: No changes-continue current regimen Depending on response [...] [facility] documented in this encounterKnox Community Hospital05-26-2022 NoteHNO ID: [id number] Author: Elle Rasheed MD Service: ? Author Type: Physician Type: Progress Notes Filed: 03/29/2022 11:48 AM Note Text: [facility] Name: Tori Gray : 1980 Purpose: New [...] 12/21/2021, noted she had an EMG at [facility] which was normal (Jul 2021). MRI shoulder had very minor degenerative changes. Non-surgical management was advised. 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 [...] (Meloxicam) and Lodine (Etodolac) Opioids: Vicodin or [place] (Hydrocodone) and Percocet (Oxycodone) Muscle Relaxants: Zanaflex [...] advise. Helen Camacho LPN documented in this encounterKnox Community Hospital05-02-2022 Miscellaneous Notes* Telephone Encounter - [...] Thank you. LEVAR Jasmine documented in this encounterKnox Community Hospital04-27-2022 History of Present illness Narrative* Ivette Grimes MD - 02/28/2022 4:43 PM EDT Patient presents with: ED Follow-up HPI: Patient presents today for office visit for follow up. Nursing Notes: Nirmala Cordelia SÁNCHEZ 02/28/2022 4:42 PM Signed HOSPITAL/ER FOLLOW UP: Reason for visit: back pain/headache(different pain not her chronic pain) Pain went from lower backup to shoulders. Which facility: [facility] Date of visit: 02/27/22 Diagnosis: back [...] week as well. Happened all day yesterday. Wesley different than her classic disc pain. Might [...] in bed with current PAP mask. Ipratropium [place]ley (ATROVENT) 0.03 % nasal spray Use 2 Sprays in the nose every 12 hours. metroNIDAZOLE (METROGEL) 0.75 % Topical Gel Apply to affected area twice daily. [place]-3 Fatty Acids (FISH OIL) 500 mg cap Take 1 capsule by mouth once daily. blood sugar diagnostic (BLOOD GLUCOSE TEST) test strip Test blood sugar(s) 1 times daily. Dx: Type 2 DM - Controlled E11.9 Insulin: Yes Lancets lancets Test blood sugar(s) 1 times daily. Dx: Type 2 DM - Controlled E11.9 Insulin: No Yxkqsvjr-Lv-Tqs-Fe-FA ( FORMULA) ORAL Tab Take 1 tablet [...] Age of Onset Alcohol/Drug Mother Heart Father [place] Cancer Father PANCREATIC CANCER Diabetes Father Diabetes [...] six to eight weeks documented in this encounterKnox Community Hospital04-27-2022 Nurse Note* Nirmala Storey LPN - 02/28/2022 4:36 PM EDT HOSPITAL/ER FOLLOW UP: Reason for visit: back pain/headache(different pain not her chronic pain) Pain went from lower backup to shoulders. Which facility: [facility] Date of visit: 02/27/22 Diagnosis: back pain, hypertension Testing done: CT scan and labs Treatment given: no new changes Current symptoms: mild headache still and back pain, just feels off Was just feeling off. Aching. Cold chills. Scheduled with Dr Rasheed. documented in this encounterKnox Community Hospital04-26-2022 Miscellaneous Notes* Telephone Encounter - Quinn Lazo LPN - 02/27/2022 12:44 PM EDT Appt scheduled. Quinn Lazo LPN documented in this encounterKnox Community Hospital04-22-2022 Miscellaneous Notes* Telephone Encounter - [...] Thank you. LEVAR Jasmine documented in this encounterKnox Community Hospital04-06-2022 Miscellaneous Notes* Telephone Encounter - Nirmala Storey LPN - 02/07/2022 4:09 PM EDT [employer] message sent to patient. * Telephone Encounter - Ivette Grimes MD - 02/07/2022 3:38 PM EDT Let her her know her labs look great. * Telephone Encounter - Nirmala Storey LPN - 02/07/2022 2:33 PM EDT Received lab results from [facility]. Placed on desk for review. documented in this encounterKnox Community Hospital04-04-2022 Miscellaneous Notes* Telephone Encounter - Tessy Wadsworth Ma - 02/05/2022 12:25 PM EDT Labs faxed within [place] to update if there are any issues. Tessy Wadsworth Ma documented in this encounterKnox Community Hospital03-28-2022 Miscellaneous Notes* Telephone Encounter - [...] shoulder pain. Thank you! documented in this encounterKnox Community Hospital02-02-2013 History of Past illness Narrative* [...] of this encounter (statuses as of 01/30/2022) [facility] Narrative* [...] of this encounter (statuses as of 02/05/2022) [facility] Narrative* [...] of this encounter (statuses as of 02/07/2022) [facility] Narrative* [...] of this encounter (statuses as of 02/07/2022) [facility] Narrative* [...] of this encounter (statuses as of 02/08/2022) [facility] Narrative* [...] of this encounter (statuses as of 02/23/2022) [facility] Narrative* [...] of this encounter (statuses as of 02/27/2022) [facility] N[facility]ative* [...] of this encounter (statuses as of 02/28/2022) [facility] Narrative* [...] of this encounter (statuses as of 03/05/2022) [facility] Narrative* [...] of this encounter (statuses as of 03/16/2022) [facility] Narrative* [...] of this encounter (statuses as of 03/29/2022) [facility] Narrative* [...] of this encounter (statuses as of 03/29/2022) [facility] Narrative* [...] of this encounter (statuses as of 03/30/2022) [facility] History of Past illness Narrative* [...] of this encounter (statuses as of 04/05/2022) [facility] History of Past illness Narrative* [...] of this encounter (statuses as of 04/09/2022) [facility] History of Past illness Narrative* [...] of this encounter (statuses as of 04/10/2022) [facility] History of Past illness Narrative* [...] of this encounter (statuses as of 04/16/2022) [facility] History of Past illness Narrative* [...] of this encounter (statuses as of 04/16/2022) [facility] History of Past illness Narrative* [...] of this encounter (statuses as of 04/19/2022) [facility] History of Past illness Narrative* [...] of this encounter (statuses as of 05/01/2022) [facility] History of Past illness Narrative* [...] of this encounter (statuses as of 05/03/2022) [facility] History of Past illness Narrative* [...] of this encounter (statuses as of 05/08/2022) [facility] History of Past illness Narrative* [...] of this encounter (statuses as of 05/10/2022) [facility] of Past illness Narrative* [...] of this encounter (statuses as of 05/11/2022) [facility] History of Past illness Narrative* [...] of this encounter (statuses as of 05/25/2022) [facility] of Past illness Narrative* [...] of this encounter (statuses as of 05/29/2022) [facility] History of Past illness Narrative* [...] of this encounter (statuses as of 06/05/2022) [facility] of Past illness Narrative* [...] of this encounter (statuses as of 06/05/2022) [facility] of Past illness Narrative* [...] of this encounter (statuses as of 06/07/2022) [facility] History of Past illness Narrative* Problem Noted Date Resolved Date Routine general medical exam ination at a health care facility 12/06/2012 02/22/2014 Routine general medical exam ination at a [facility] care facility 01/23/2010 12/06/2012 Overview: [...] of this encounter (statuses as of 06/07/2022) [facility] History of Past illness Narrative* [...] of this encounter (statuses as of 06/22/2022) [facility] History of Past illness Narrative* [...] of this encounter (statuses as of 07/03/2022) [facility] of Past illness Narrative* [...] of this encounter (statuses as of 07/10/2022) [facility] of Past illness Narrative* [...] of this encounter (statuses as of 07/19/2022) [facility] illness Narrative* [...] of this encounter (statuses as of 07/19/2022) [facility] History of Past illness Narrative* [...] of this encounter (statuses as of 07/23/2022) [facility] of Past illness Narrative* [...] of this encounter (statuses as of 08/01/2022) [facility] Past illness Narrative* [...] of this encounter (statuses as of 08/02/2022) [facility] History of Past illness Narrative* [...] of this encounter (statuses as of 08/03/2022) [facility] of Past illness Narrative* [...] of this encounter (statuses as of 08/06/2022) [facility] of Past illness Narrative* [...] of this encounter (statuses as of 08/08/2022) [facility] of Past illness Narrative* [...] of this encounter (statuses as of 08/08/2022) [facility] of Past illness Narrative* [...] of this encounter (statuses as of 08/08/2022) [facility] of Past illness Narrative* [...] of this encounter (statuses as of 08/27/2022) [facility] Past illness Narrative* [...] of this encounter (statuses as of 09/03/2022) [facility]* Chief Complaint Back [...] thoracic region Disc displacement, lumbar [facility] Work Phone: Consult note Author Ankur Templeton [facility] Note Date/Time June 23, 2025 8: 58am [facility] Medical Records Department [address] [place] [id number] Anesthesia Postop Eval I 06/23/25 0857 MR#: [id number] Acct: [id number] Name: TORI GRAY Rep #:[id number] : 1980 45 From: Ankur ROJO PCP: Dr. Ivette Grimes MD Status:REG S DC Y Race: C Location: [place] [address] Anesthesia: Postop Eval I Current Vital Signs [...] Signature: Date CC: ~ Signed [facility] Work Phone: Discharge summary Author Sam Pearl [facility] February 04, 2024 3:49am Note Date/Time February 04, 2024 2:07 am [facility] Medical Records Department [address] [place] [address] Emergency Department Summary 02/04/24 MR#: [id number] Acct: [id number] Name: TORI GRAY Rep #:[id number] : 1980 43 From: Sam Pearl MD [...] the headache that she has had since Thursday feels like a migraine and has been pretty typical for her otherwise till this tonight. In addition, abnormal for her, for the past 4 or 5 days she has been extremely thirsty, drinking a ton of water, and urinating a lot as well. She is diabetic and her blood sugars been okay and her last A1c was in the 5.1 range. [facility] Medical History Abnormal ECG Acute bronchitis Acute [...] %) nasal spray 2 spray intranasal BID [id number]/20/20 [History Last Taken 08/03/23] omega-3 fatty acids [...] Neuro Narrative: Normal speech. No aphasia. Normal [id number] and [id number] bilaterally. No confusion. Sensorium / Orientation: alert [...] do not think this is a primary BLOCKLAYER problem. She describes visual disturbance being diffuse, [...] (Auto) 71.0 H Lymph % (Auto) 19.8 Walsh % (Auto) 6.6 Eos % (Auto) 0.9 [...] Clarity Clear Urine pH 7.0 Ur Specific [place] 1.010 Urine Protein 15 H Urine Glucose [...] 3:17 EDT Reading Location ID and State: [facility] / [place] Tel , Service support , Discharge Plan [...] your Primary Care Provider. Call [facility] ([phone]) or report to the closest Emergency Room. Call 911 if necessary. 02/04/24 [id number] <Electronically signed by Sam Pearl MD> Cosigner Signature (if applicable): CC: Dr. Ivette Grimes MD ~ Signed [facility] Work Phone: Evaluation note* Diagnosis Onset Date [...] Disc displacement, lumbar ch ronic [facility] Work Phone: Evaluation note* Diagnosis Upper back pain- Primary Acute midline low back pain without sciatica Type 2 diabetes mellitus with microalbuminuria, with long-term current use of insulin ([facility]) LETITIA (obstructive sleep apnea) Obstructive sleep apnea (adult) (pediatric) Lumbar disc disorder Other and unspecified disc disorder of lumbar region Elevated BP without diagnosis of hypertension [facility] Diagnosis Myofascial pain- Primary Mylagia and myositis, unspecified Chronic left shoulder pain Pain in joint, shoulder region Neuropathic pain Neuralgia, neuritis, and radiculitis, unspecified Adhesive capsulitis of left shoulder Adhesive capsulitis of shoulder Primary osteoarthritis of left shoulder Primary localized osteoarthrosis, shoulder region [facility] Diagnosis Migraine without aura and [...] comorbidity present (HCC) [facility] Diagnosis Intractable migraine without [...] comorbidity present (HCC) [facility] Diagnosis Intractable chronic migraine without aura and without status migrainosus- Primary Chronic migraine without aura, with intractable migraine, so stated, without mention of status migrainosus Mixed migraine and muscle contraction headache Migraine, unspecified, without mention of intractable migraine without mention of status migrainosus [facility] Diagnosis Onset Date Resolution Status Back [...] Disc displacement, lumbar ch ronic [facility] Work Phone: Evaluation note* Diagnosis Type 2 [...] Fatigue, unspecified type [facility] Diagnosis Onset Date Resolution [...] somatic dysfunction of thoracic region chronic Obesity [facility] Work Phone: Evaluation note* Diagnosis [...] chronic Obesity chronic Type 2 diabetes mellitus [facility] Work Phone: Evaluation note* Diagnosis Malaise- Primary Other malaise and fatigue [facility] Diagnosis Onset Date Resolution [...] Disc displacement, lumbar ch ronic [facility] Work Phone: Evaluation note* Diagnosis Lightheadedness- Primary Dizziness and giddiness Essential (primary) hypertension Unspecified essential hypertension Prolonged Q-T interval on ECG Nonspecific abnormal electrocardiogram (ECG) (EKG) Type 2 diabetes mellitus with microalbuminuria, with long-term current use of insulin (HCC) Fatty liver Other chronic nonalcoholic liver disease LETITIA (obstructive sleep apnea) Obstructive sleep apnea (adult) (pediatric) [facility] Diagnosis Anxiety with depression- Primary [facility] Diagnosis Onset Date Resolution Status Back [...] region acute Disc displacement, lumbar [facility]* Diagnosis Onset [...] Disc displacement, lumbar ch ronic [facility] Work Phone: Evaluation note* Diagnosis VAHE (generalized anxiety disorder)- Primary Generalized anxiety disorder Major depressive disorder, recurrent episode, moderate (HCC) Major depressive disorder, recurrent episode, moderate [facility] Diagnosis Chronic left shoulder pain- Primary Pain in joint, shoulder region Adhesive capsulitis of left shoulder Adhesive capsulitis of shoulder Neuropathic pain Neuralgia, neuritis, and radiculitis, unspecified Myofascial pain Mylagia and myositis, unspecified [facility] Diagnosis Chronic left shoulder pain- Primary Pain in joint, shoulder region Adhesive capsulitis of left shoulder Adhesive capsulitis of shoulder Chronic left shoulder pain Pain in joint, shoulder region Adhesive capsulitis of left shoulder Adhesive capsulitis of shoulder [facility] Diagnosis Microalbuminuria Proteinuria Type 2 [...] capsulitis of shoulder [facility] Diagnosis Onset Date Resolution Status Back [...] Disc displacement, lumbar ch ronic [facility] Work Phone: Evaluation note* Diagnosis Onset Date [...] Disc displacement, lumbar ch ronic [facility] Work Phone: Evaluation note* Diagnosis Worst headache of life- Primary Headache Concussion with loss of consciousness, initial encounter Chronic left shoulder pain Pain in joint, shoulder region Adhesive capsulitis of left shoulder Adhesive capsulitis of shoulder [facility]* Diagnosis Headache, unspecified headache type- Primary Concussion with loss of consciousness, initial encounter Chronic left shoulder pain Pain in joint, shoulder region Adhesive capsulitis of left shoulder Adhesive capsulitis of shoulder [facility] Diagnosis Post concussion syndrome- [...] capsulitis of shoulder [facility]* Diagnosis Headache, unspecified headache type- Primary Concussion with loss of consciousness, initial encounter Chronic left shoulder pain Pain in joint, shoulder region Adhesive capsulitis of left shoulder Adhesive capsulitis of shoulder [facility]* Diagnosis Post concussion syndrome- Primary Postconcussion syndrome Essential (primary) hypertension Unspecified essential hypertension Microalbuminuria Proteinuria Type 2 diabetes mellitus without complication, with long-term current use of insulin (HCC) Chronic left shoulder pain Pain in joint, shoulder region Adhesive capsulitis of left shoulder Adhesive capsulitis of shoulder [facility] Diagnosis Post concussion syndrome- Primary Postconcussion syndrome Essential (primary) hypertension Unspecified essential hypertension Chronic left shoulder pain Pain in joint, shoulder region Adhesive capsulitis of left shoulder Adhesive capsulitis of shoulder [facility] Diagnosis Post concussive syndrome- Primary Postconcussion syndrome Headache, unspecified headache type [facility] Diagnosis Post concussive syndrome- Primary Postconcussion syndrome Headache, unspecified headache type Injury of neck, subsequent encounter [facility]* Diagnosis Onset Date Resolution Status Back [...] Disc displacement, lumbar ch ronic [facility] Work Phone: Evaluation note* Diagnosis Intractable chronic migraine without aura and without status migrainosus- Primary Chronic migraine without aura, with intractable migraine, so stated, without mention of status migrainosus [facility] Chronic left shoulder pain- Primary Pain in joint, shoulder region Adhesive capsulitis of left shoulder Adhesive capsulitis of shoulder Neuropathic pain Neuralgia, neuritis, and radiculitis, unspecified Primary osteoarthritis of left shoulder Primary localized osteoarthrosis, shoulder region Myofascial pain Mylagia and myositis, unspecified Lumbar spondylosis Lumbosacral spondylosis without myelopathy [facility] Diagnosis Post concussive syndrome- Primary Postconcussion syndrome Headache, unspecified headache type Injury of neck, subsequent encounter [facility] Diagnosis Soft tissue mass- Primary Disorders of soft tissue, unspecified [facility] Diagnosis VAHE (generalized anxiety disorder)- Primary Generalized anxiety disorder Recurrent major depressive disorder, in full remission (HCC) [facility] Diagnosis Onset Date Resolution [...] Disc displacement, lumbar ch ronic [facility] Work Phone: Evaluation note* Diagnosis Anxiety- Primary Anxiety state, unspecified [facility] Diagnosis Soft tissue mass- Primary Disorders of soft tissue, unspecified Post concussive syndrome Postconcussion syndrome Essential (primary) hypertension Unspecified essential hypertension Type 2 diabetes mellitus with microalbuminuria, with long-term current use of insulin (HCC) Headache, unspecified headache type Myalgia Mylagia and myositis, unspecified [facility] Diagnosis Post concussion syndrome- Primary Postconcussion syndrome LETITIA (obstructive sleep apnea) Obstructive sleep apnea (adult) (pediatric) [facility] Diagnosis Encounter for gynecological examination (general) (routine) without abnormal findings- Primary [facility] Diagnosis Post concussion syndrome- Primary Postconcussion syndrome LETITIA (obstructive sleep apnea) Obstructive sleep apnea (adult) (pediatric) Intractable acute post-traumatic headache Acute post-traumatic headache Altered awareness, transient Transient alteration of awareness [facility] Diagnosis Onset Date Resolution [...] Disc displacement, lumbar ch ronic [facility] Work Phone: Evaluation note* Diagnosis Intractable chronic migraine without aura and without status migrainosus- Primary Chronic migraine without aura, with intractable migraine, so stated, without mention of status migrainosus Post concussive syndrome Postconcussion syndrome [facility] Diagnosis Onset Date Resolution [...] Disc displacement, lumbar ch ronic [facility] Work Phone: Evaluation note* Diagnosis Foot pain, right- Primary Pain in limb [facility]* Diagnosis Type 2 diabetes mellitus with [...] unspecified headache type [facility] Diagnosis Memory loss- Primary Attention and concentration deficit Attention or concentration deficit Post concussion syndrome Postconcussion syndrome Intractable migraine without aura and without status migrainosus Migraine without aura, with intractable migraine, so stated, without mention of status migrainosus LETITIA (obstructive sleep apnea) Obstructive sleep apnea (adult) (pediatric) [facility] Diagnosis Plantar fasciitis- Primary Plantar fascial fibromatosis Calcaneal spur of right foot Calcaneal spur [facility] Diagnosis SOB (shortness of breath) Shortness of breath [facility]* Diagnosis SOB (shortness of breath) Shortness of breath [facility] Diagnosis Onset Date Resolution Status Back [...] Disc displacement, lumbar ch ronic [facility] Work Phone: Evaluation note* Diagnosis Post concussion syndrome Postconcussion syndrome Intractable acute post-traumatic headache Acute post-traumatic headache Dizziness Dizziness and giddiness Cervicalgia [facility] Diagnosis Post concussive syndrome Postconcussion syndrome Headache, unspecified headache type [facility] Diagnosis Onset Date Resolution [...] thoracic region acute Disc displacement, lumbar ch [facility] Work Phone: Evaluation note* Diagnosis Onset Date [...] thoracic region acute Disc displacement, lumbar ch [facility] Work Phone: Evaluation note* Diagnosis Essential (primary) hypertension- Primary Unspecified essential hypertension LETITIA (obstructive sleep apnea) Obstructive sleep apnea (adult) (pediatric) Fatty liver Other chronic nonalcoholic liver disease Vertigo Dizziness and giddiness Anxiety Anxiety state, unspecified [facility] Diagnosis Encounter for screening mammogram for malignant neoplasm of breast- Primary Other screening mammogram [facility] Diagnosis Onset Date Resolution [...] ronic Obesity chronic LETITIA (obstructive sleep apnea) [facility] Work Phone: Evaluation note* Diagnosis Intractable chronic migraine without aura and without status migrainosus- Primary Chronic migraine without aura, with intractable migraine, so stated, without mention of status migrainosus [facility] Diagnosis Onset Date Resolution Status Obesity chronic LETITIA (obstructive sleep apnea) [facility] Work Phone: Evaluation note* Diagnosis Intractable chronic migraine without aura and without status migrainosus- Primary Chronic migraine without aura, with intractable migraine, so stated, without mention of status migrainosus [facility] Diagnosis Headache, unspecified headache type [facility]* Diagnosis Headache, unspecified headache type [facility]* Diagnosis Left sided sciatica- Primary Sciatica Screening for depression [facility] Diagnosis Acute cough- Primary [facility]* Diagnosis Bronchitis- Primary Bronchitis, not specified as acute or chronic Type 2 diabetes mellitus with microalbuminuria, with long-term current use of insulin (HCC) Wheezing [facility]* Diagnosis Type 2 diabetes mellitus with microalbuminuria, with long-term current use of insulin (HCC)- Primary [facility]* Diagnosis Cough, unspecified type- Primary [facility]* Diagnosis Pain of right heel Pain in limb [facility] Diagnosis Well adult exam- Primary Routine [...] or maintaining sleep [facility] Diagnosis Flank pain- Primary Abdominal pain, unspecified site [facility] Diagnosis Flank pain Abdominal pain, unspecified site [facility] Diagnosis SOB (shortness of breath) Shortness of breath [facility] Diagnosis Sinobronchitis- Primary Unspecified sinusitis (chronic) Hypokalemia Hypopotassemia [facility] Diagnosis Sinobronchitis- Primary Unspecified sinusitis (chronic) [facility]* Diagnosis Encounter for screening mammogram for breast cancer [facility] Diagnosis LETITIA (obstructive sleep apnea)- Primary Obstructive sleep apnea (adult) (pediatric) Flank pain Abdominal pain, unspecified site Headache, unspecified headache type Type 2 diabetes mellitus with microalbuminuria, with long-term current use of insulin (HCC) Essential (primary) hypertension Unspecified essential hypertension Chronic left shoulder pain Pain in joint, shoulder region Anxiety Anxiety state, unspecified Screening for depression [facility] Diagnosis Intractable chronic migraine without aura and without status migrainosus- Primary Chronic migraine without aura, with intractable migraine, so stated, without mention of status migrainosus Chronic left shoulder pain Pain in joint, shoulder region [facility] Diagnosis Intractable chronic migraine without aura and with status migrainosus- Primary Chronic migraine without aura, with intractable migraine, so stated, with status migrainosus [facility] Diagnosis Spasm of muscle [facility] Diagnosis Flank pain Abdominal pain, unspecified site [facility] Diagnosis Well adult exam- Primary [...] for breast cancer [facility] Diagnosis LUQ pain Abdominal pain, left upper quadrant Flank pain Abdominal pain, unspecified site [facility] this encounter [facility] Diagnosis Type 2 diabetes mellitus with microalbuminuria, with long-term current use of insulin (HCC) [facility] Diagnosis Microalbuminuria Proteinuria Type 2 diabetes mellitus without complication, with long-term current use of insulin (HCC) [facility] Diagnosis Microalbuminuria Proteinuria Type 2 diabetes mellitus without complication, with long-term current use of insulin (HCC) [facility]* Diagnosis Sepsis due to Escherichia coli [...] this encounter [facility] Discharge instructionsAmbulatory Orders* Electrophysiology Location: None Selected [facility] Work Phone: Hospital Discharge instructions Additional Instructions [...] for further outpatient evaluation and management.[facility] Work Phone: Hospital Discharge instructionsAdditional Instructions [facility]: [facility]: Progress note Author Brett Quiroga [facility] Note Date/Time August 05, 2025 9: 57am [facility] [address] [place] [address] OFFICE VISIT Date of Service: 08/05/25 MR#: [id number] Acct: [id number] Name: TORI GRAY Rep #: [id number] : 1980 Provider: Dr. Killian Quiroga MD Age/Sex: 45/F Location: [facility] Status: Signed Intake Vital Signs 07/06/25 10:30 [...] Positive Airway 07/06/25 08/05/25 Hist ory Pressure ([facility] INFORMATIONAL USE ONLY) CPAP - Continuous Positive Airway 07/06/25 08/05/25 H istory Pressure([facility] INFORMATIONAL USE ONLY) cefdinir 300 mg capsule 300 mg PO BID 7 days #14 cap s 07/07/25 08/05/25 Rx insulin glargine 100 unit/mL (3 10 unit (0.1 mL) subcu t QPM #15 mL 07/07/25 08/05/25 Rx mL) subcutaneous pen (Lantus Solostar U-100 Insulin) pen needle, diabetic 31 gauge x #100 ea 07/07/2508/05 Rx /32 topiramate 50 mg tablet 50 mg PO ONCE 08/05/2508/05 History [facility] Medical History Impingement of left shoulder Diabetes [...] Cosigner Signature: Date (if applicable) CC: ~ [facility] [employer] Work Phone: [employer] for referral (narrative)* Diagnostic Procedure Only (Routine) - Pending Review Specialty Diagnoses / Procedures Referred By Petra t Referred To Contact XR IMAGING Diagnoses Rib pain Procedures XR RIBS/CHEST 3V AP RIB/OBLS/CXR LEFT RADEX RIBS UNI W/POSTEROANT CH MINIMUM 3 VIEWS Ivette Grimes MD [address] [place] [address] Xr Imaging Referral ID Status Reason Start Date Expiration Date Visits Requested Visits Authorized [id number] Pending Review Auto-Generat ed Referral 05/01/2022 05/31/2023 1 1 [facility] for referral (narrative)* - Pending Review Specialty Diagnoses / Procedures Referred By Petra meek Referred To Contact Physical Therapy Diagnoses Chronic left shoulder pain Adhesive capsulitis of left shoulder Primary osteoarthritis of left shoulder Procedures CONSULT TO PHYSICAL THERAPY Adelina Marinelli, THOM.CHEMISTRY LECTURER [address] [place] [address] Referral ID Status Reason Start Date Expiration Date V isits Requested Visits Authorized [id number] Pending Review 05/24/2022 08/22/2022 1 1 [facility] for referral (narrative)* Outpatient Procedure (Routine) - Closed Specialty Diagnoses / Procedures Referred By Petra meek Referred To Contact [facility] Diagnoses Prolonged Q-T interval on ECG Procedures ECG COMPLETE ECG ROUTINE ECG W/LEAST 12 LDS W/I&R Ivette Grimes MD [address] [place] [address] [facility] [address] [place] [address] Referral ID Status Reason Start Date Expiration Date V isits Requested Visits Authorized [id number] Closed Auto-Generate d Referral 09/04/2022 09/04/2023 1 1 T [facility] for referral (narrative)* Diagnostic Procedure Only (Routine) - Pending Review Specialty Diagnoses / Procedures Referred By Petra meek Referred To Contact US IMAGING Diagnoses Soft tissue mass Procedures US HEAD/NECK SOFT TISSUE OTHER US SOFT TISSUE HEAD & NECK REAL TIME IMGE Ivette Charles MD [address] [place] [address] Us Imaging Referral ID Status Reason Start Date Expiration Date Visits Requested Visits Authorized [id number] Pending Review Auto-Generat ed Referral 01/31/2023 03/01/2024 1 1 [facility] for referral (narrative)* Outpatient Procedure (Routine) - Pending Review Specialty Diagnoses / Procedures Referred By Contac t Referred To Contact [facility] Diagnoses Altered awareness, transient Procedures EPIL EEG ROUTINE ELECTROENCEPHALOGRAM REC COMA/SLEEP ONLY Fatuma Beckford PA-C [address] [place] [address] [facility] [address] [place] [id number] Referral ID Status Reason Start Date Expiration Date Visits Requested Visits Authorized [id number] Pending Review Auto-Generat ed Referral 03/05/2023 03/05/2024 1 1 [facility] for referral (narrative)* Diagnostic Procedure Only (Routine) - Pending Review Specialty Diagnoses / Procedures Referred By Petra t Referred To Contact BR IMAGING Diagnoses Encounter for screening mammogram for malignant neoplasm of breast Procedures FLASH SCREENING SCREENING MAMMOGRAPHY BI 2-VIEW [place] [address] [place] [address] [facility] [address] [place] [phone] Referral ID Status Reason Start Date Expiration Date Visits Requested Visits Authorized [id number] Pending Review Auto-Generat ed Referral 06/06/2023 07/05/2024 1 1 * Transition of Care (Routine) - Ref Not Required Specialty Diagnoses / Procedures Referred By Contac t Referred To Contact Pain Management Diagnoses Chronic left shoulder pain Herniation of lumbar intervertebral disc with radiculopathy Procedures CONSULT TO PAIN MGT Ivette Grimes MD [address] [place] [address] Referral ID Status Reason Start Date Expiration Date Visits Requested Visits Authorized [id number] Ref Not Required PCP Requested Referral 06/06/2023 06/05/2024 1 1 [facility] for referral (narrative)* Diagnostic Procedure Only (Routine) - Closed Specialty Diagnoses / Procedures Referred By Vladimirac t Referred To Contact MR IMAGING Diagnoses Post concussion syndrome Intractable acute post-traumatic headache Dizziness Cervicalgia Procedures MRI CERVICAL SPINE WO IVCON MRI SPINAL CANAL CERVICAL W/O CONTRAST MATRL Ivette Price Jr., MD [address] [facility] [address] [place] [address] [place] [address] Referral ID Status Reason Start Date Expiration Date V isits Requested Visits Authorized [id number] Closed Auto-Generat ed Referral Patient Cleared - [...] CONTRAST MATERIAL Ivette Price Jr., MD [address] [facility] [address] [place] [address] [place] [address] Referral ID Status Reason Start Date Expiration Date V isits Requested Visits Authorized [id number] Closed Auto-Generat ed Referral Patient Cleared - Admin/Chairm an/Director advise to proceed or did not respond 02/26/2023 02/28/2023 1 1 [facility] for referral (narrative)* Diagnostic Procedure Only (Routine) - Pending Review Specialty Diagnoses / Procedures Referred By Petra t Referred To Contact BR IMAGING Diagnoses Encounter for screening mammogram for malignant neoplasm of breast Procedures FLASH SCREENING W JAQUELIN SCREENING DIGITAL BREAST TOMOSYNTHESIS BI SCREENING MAMMOGRAPHY BI 2-VIEW BREAST INC Ivette Rey MD [address] [place] [address] [facility] [address] [place] [address] Referral ID Status Reason Start Date Expiration Date Visits Requested Visits Authorized [id number] Pending Review Auto-Generat ed Referral 12/09/2023 01/07/2025 1 1 [facility] for referral (narrative)* Diagnostic Procedure Only (Urgent) - Closed Specialty Diagnoses / Procedures Referred By Contac t Referred To Contact XR IMAGING Diagnoses Pain of right heel Procedures XR FOOT GENERAL 3V AP/LAT/OBL RIGHT RADEX FOOT COMPLETE MINIMUM 3 VIEWS Nicole Anton PA-C [address] [place] [address] [place] [address] Referral ID Status Reason Start Date Expiration Date V isits Requested Visits Authorized [id number] Closed Auto-Generate d Referral 05/28/2023 06/26/2024 1 1 [facility] for referral (narrative)No reason for referral [facility] Phone: [facility] Narrative* Diagnostic Procedure Only (Routine) - Closed Specialty Diagnoses / Procedures Referred By Contac t Referred To Contact MR IMAGING Diagnoses Post concussion syndrome Intractable acute post-traumatic headache Dizziness Cervicalgia Procedures MRI CERVICAL SPINE WO IVCON MRI SPINAL CANAL CERVICAL W/O CONTRAST MATRL Ivette Price Jr., MD [address] [place] [phone] [place] [address] Referral ID Status Reason Start Date Expiration Date V isits Requested Visits Authorized [id number] Closed Auto-Generat ed Referral Patient Cleared - Admin/Chairm an/Director advise to proceed or did not respond 02/26/2023 02/28/2023 1 1 [facility] for visit Narrative* Diagnostic Procedure Only (Urgent) - Closed Specialty Diagnoses / Procedures Referred By Contac t Referred To Contact XR IMAGING Diagnoses Pain of right heel Procedures XR FOOT GENERAL 3V AP/LAT/OBL RIGHT RADEX FOOT COMPLETE MINIMUM 3 VIEWS Nicole Anton PA-C [address] [place] [address] [place] [address] Referral ID Status Reason Start Date Expiration Date V isits Requested Visits Authorized [id number] Closed Auto-Generate d Referral 05/28/2023 06/26/2024 1 1 [facility] Family History No Family History Records [...] Will No November 21 3:58pm Power of Harness Brusher No November 21, 2021 3:58pm Advance Directive Response Recorded Date/ Time Advance Directives No November 21, 2021 3:58pm Living Will No February 27, 2022 10:01am Power of Harness Brusher No February 27 10:01am Advance Directive Response Recorded Date/ Time Advance Directives No November 21, 2021 2:58pm Living Will No February 27, 2022 9:01am Power of Harness Brusher No February 27 9:01am Advance Directive Response Recorded Date/ Time Advance Directives No November 21, 2021 2:58pm Living Will No November 24 11:49am Power of Harness Brusher No November 24, 2022 11:49am Advance Directive Response Recorded Date/ Time Advance Directives No November 21, 2021 2:58pm Living Will No November 27 3:43pm Power of Harness Brusher No November 27, 2022 3:43pm Advance Directive Response Recorded Date/ Time Advance Directives No November 21, 2021 3:58pm Living Will No December 03 7:35pm Power of Harness Brusher No December 03, 2022 7:35pm Advance Directive Response Recorded Date/ Time Advance Directives No November 21, 2021 3:58pm Living Will No May 20, 2023 9:41pm Power of Harness Brusher No May 20 9:41pm Advance Directive Response Recorded Date/ Time Advance Directives No November 21, 2021 3:58pm Living Will No August 05 9:54am Power of Harness Brusher No August 05 9:54am Advance Directive Response Recorded Date/ Time Advance Directives No November 21, 2021 2:58pm Living Will No August 05 12:04pm Power of Harness Brusher No August 05, 2 023 12:04pm Advance Directive Response Recorded Date/ Time Advance Directives No November 21, 2021 2:58pm Living Will No October 27, 2 023 4:06pm Power of Harness Brusher No October 27, 2023 4:06pm Advance Directive Response Recorded Date/ Time Advance Directives No November 21, 2021 3:58pm Living Will No February 04, 2024 1:16am Power of Harness Brusher No February 03 1:16am Advance Directive Response Recorded Date/ Time Advance Directives No October 07, 2024 8:43am Living Will No October 16, 024 10:17pm Do you have a Healthcare Power of Harness Brusher? No October 16, 2024 10:17pm Living Will No November 11 7:01am Do you have a Healthcare Power of Harness Brusher? No November 11, 2024 7:01am Advance Directive Response Recorded Date/ Time Advance Directives No March 09, 2025 9:20am Advance Directive Response Recorded Date/ Time Advance Directives No March 09, 2025 9:20am Do you have a Healthcare Power of Harness Brusher? No June 10, 2025 9:08am Advance Directive Response Recorded Date/ Time Advance Directives No March 09, 2025 9:20am Do you have a Healthcare Power of Harness Brusher? No June 10, 2025 9:08am Do you have a Healthcare Power of Harness Brusher? No July 05, 2025 11:35pm Advance Directive Response Recorded Date/ Time Do you have a Healthcare Power of Harness Brusher? No June 10, 2025 9:08am Do you have a Healthcare Power of Harness Brusher? No July 05, 2025 11:35pm Advance Directives [...] migrainosus Procedures CONSULT TO HEADACHE CLINIC OFFICE/OUTPATIENT [facility] 60-74 MINUTES Tara Gillette, THOM.CHEMISTRY LECTURER [address] [place] [id number] Referral ID Status Reason Start Date Expiration Date Visits Requested Visits Authorized [id number] Authorized PCP Requested Referral 06/07/2022 06/07/2023 1 1 Specialty Diagnoses / Procedures Referred By Petra meek Referred To Contact MR IMAGING Diagnoses Post concussion syndrome Intractable acute post-traumatic headache Dizziness Cervicalgia Procedures MRI CERVICAL SPINE WO IVCON MRI SPINAL CANAL CERVICAL W/O CONTRAST MATRL Ivette Price Jr., [facility] [address] [address] Mr Imaging Referral ID Status Reason Start Date Expiration Date Visits Requested Visits Authorized [id number] Pending Review Auto-Generat ed Referral 12/07/2022 01/06/2024 1 1 Specialty Diagnoses / Procedures Referred By Petra meek Referred To Contact MR IMAGING Diagnoses Post concussion syndrome Intractable acute post-traumatic headache Dizziness Cervicalgia Procedures MRI BRAIN WO IVCON MRI BRAIN BRAIN STEM W/O CONTRAST MATERIAL Ivette Price Jr., MD [address] [facility] [address] [place] [address] Mr Imaging Referral ID Status Reason Start Date Expiration Date Visits Requested Visits Authorized [id number] Pending Review Auto-Generat ed Referral 12/07/2022 01/06/2024 1 1 Specialty Diagnoses / Procedures Referred By Contac t Referred To Contact CT IMAGING Diagnoses Soft tissue mass Procedures CT NECK SOFT TISSUE W IVCON CT SOFT TISSUE NECK W/CONTRAST MATERIAL Ivette Grimes MD [address] [place] [address] Referral ID Status Reason Start Date Expiration Date Visits Requested Visits Authorized [id number] Pending Review Auto-Generat ed Referral 02/28/2023 03/29/2024 1 1 Specialty Diagnoses / Procedures Referred By Contac t Referred To Contact [facility] Diagnoses Post concussive syndrome Procedures CONSULT TO SPEECH THERAPY OFFICE/OUTPATIENT [facility] 60-74 MINUTES Fatuma Beckford PA-C [address] [place] [address] [facility] [address] [place] [address] Referral ID Status Reason Start Date Expiration Date Visits Requested Visits Authorized [id number] Pending Review Auto-Generat ed Referral 05/17/2023 05/16/2024 1 1 Specialty Diagnoses / Procedures Referred By Contac t Referred To Contact Fatuma Beckford PA-C [address] [place] [address] Referral ID Status Reason Start Date Expiration Date Visits Re quested Visits Authorized [id number] Closed 1 1 Specialty Diagnoses / Procedures Referred By Contac t Referred To Contact Diagnoses Type 2 diabetes mellitus with microalbuminuria, with long-term current use of insulin (HCC) Ivette Grimes MD [address] [place] [address] Referral ID Status Reason Start Date Expiration Date Visits Re quested Visits Authorized [id number] Closed 1 1 Chief Complaint and Reason [...] 2 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 LUMBAR DISC/ DN/ RX [...] pain 1 Y FU 2 ORDERING 'Bryan [employer]ICE [employer] SYDNEY SCREENING ABN EKG (SYDNEY) [...] 9:17am Segmental and somatic dysfunction of pel jalli region March 09, 2025 9:17am Segmental and [...] 10:22am Segmental and somatic dysfunction of pel jaill region April 05, 2025 10:22am Segmental and [...] 10:30am Segmental and somatic dysfunction of pel jlail region June 01, 2025 10:30am Segmental and [...] Disc displacement, lumbar June 17, 025 9:27am Chief Complaint Admit Date Back [...] Disc displacement, lumbar June 17, 025 9:27am Impingement of left shoulder June [...] 9:35pm 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, 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, 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, 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 July 05, 2025 9:46pm Reason [...] 9:35pm HHS, 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, 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, 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 July 05, 2025 9:46pm HHS, 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, 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, 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 July 06, 2025 9:51am HHS, 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, 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, 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 July 07, 2025 7:19am Chief [...] 9:35pm HHS, 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, 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, 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 July 05, 2025 9:46pm HHS, 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, 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, 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 July 06, 2025 9:51am HHS, 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, 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, 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 July 07, 2025 7:19am left [...] 9:35pm HHS, 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, 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, 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 July 05, 2025 9:46pm HHS, 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, 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, 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 July 06, 2025 9:51am HHS, 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, 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, 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 July 07, 2025 7:19am left [...] Disc displacement, lumbar June 17, 025 9:27am Impingement of left shoulder June [...] 9:35pm HHS, 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, 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, 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 July 05, 2025 9:46pm HHS, 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, 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, 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 July 06, 2025 9:51am HHS, 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, 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, 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 July 07, 2025 7:19am left [...] or prosecute any alcohol or drug abuse patient.[facility] the event this information is protected by the Federal Confidentiality of Alcohol and Drug Abuse Patient Records regulations: The Federal rules restrict any use of the information to criminally investigate or prosecute any alcohol or drug abuse patient.[facility] the event this information is protected by the Federal Confidentiality of Alcohol and Drug Abuse Patient Records regulations: The Federal rules restrict any use of the information to criminally investigate or prosecute any alcohol or drug abuse patient.[facility] the event this information is protected by the Federal Confidentiality of Alcohol and Drug Abuse Patient Records regulations: The Federal rules restrict any use of the information to criminally investigate or prosecute any alcohol or drug abuse patient.[facility] the event this information is protected by the Federal Confidentiality of Alcohol and Drug Abuse Patient Records regulations: The Federal rules restrict any use of the information to criminally investigate or prosecute any alcohol or drug abuse patient.[facility] the event this information is protected by the Federal Confidentiality of Alcohol and Drug Abuse Patient Records regulations: The Federal rules restrict any use of the information to criminally investigate or prosecute any alcohol or drug abuse patient.[facility] the event this information is protected by the Federal Confidentiality of Alcohol and Drug Abuse Patient Records regulations: The Federal rules restrict any use of the information to criminally investigate or prosecute any alcohol or drug abuse patient.[facility] the event this information is protected by the Federal Confidentiality of Alcohol and Drug Abuse Patient Records regulations: The Federal rules restrict any use of the information to criminally investigate or prosecute any alcohol or drug abuse patient.[facility] the event this information is protected by the Federal Confidentiality of Alcohol and Drug Abuse Patient Records regulations: The Federal rules restrict any use of the information to criminally investigate or prosecute any alcohol or drug abuse patient.[facility] the event this information is protected by the Federal Confidentiality of Alcohol and Drug Abuse Patient Records regulations: The Federal rules restrict any use of the information to criminally investigate or prosecute any alcohol or drug abuse patient.[facility] the event this information is protected by the Federal Confidentiality of Alcohol and Drug Abuse Patient Records regulations: The Federal rules restrict any use of the information to criminally investigate or prosecute any alcohol or drug abuse patient.[facility] the event this information is protected by the Federal Confidentiality of Alcohol and Drug Abuse Patient Records regulations: The Federal rules restrict any use of the information to criminally investigate or prosecute any alcohol or drug abuse patient.[facility] HospitalIn the event this information is protected by the Federal Confidentiality of Alcohol and Drug Abuse Patient Records regulations: The Federal rules restrict any use of the information to criminally investigate or prosecute any alcohol or drug abuse patient.[facility] the event this information is protected by the Federal Confidentiality of Alcohol and Drug Abuse Patient Records regulations: The Federal rules restrict any use of the information to criminally investigate or prosecute any alcohol or drug abuse patient.[facility] HospitalIn the event this information is protected by the Federal Confidentiality of Alcohol and Drug Abuse Patient Records regulations: The Federal rules restrict any use of the information to criminally investigate or prosecute any alcohol or drug abuse patient.[facility] HospitalIn the event this information is protected by the Federal Confidentiality of Alcohol and Drug Abuse Patient Records regulations: The Federal rules restrict any use of the information to criminally investigate or prosecute any alcohol or drug abuse patient.[facility] HospitalIn the event this information is protected by the Federal Confidentiality of Alcohol and Drug Abuse Patient Records regulations: The Federal rules restrict any use of the information to criminally investigate or prosecute any alcohol or drug abuse patient.[facility] HospitalIn the event this information is protected by the Federal Confidentiality of Alcohol and Drug Abuse Patient Records regulations: The Federal rules restrict any use of the information to criminally investigate or prosecute any alcohol or drug abuse patient.[facility] HospitalIn the event this information is protected by the Federal Confidentiality of Alcohol and Drug Abuse Patient Records regulations: The Federal rules restrict any use of the information to criminally investigate or prosecute any alcohol or drug abuse patient.[facility] HospitalIn the event this information is protected by the Federal Confidentiality of Alcohol and Drug Abuse Patient Records regulations: The Federal rules restrict any use of the information to criminally investigate or prosecute any alcohol or drug abuse patient.[facility] HospitalIn the event this information is protected by the Federal Confidentiality of Alcohol and Drug Abuse Patient Records regulations: The Federal rules restrict any use of the information to criminally investigate or prosecute any alcohol or drug abuse patient.[facility] HospitalIn the event this information is protected by the Federal Confidentiality of Alcohol and Drug Abuse Patient Records regulations: The Federal rules restrict any use of the information to criminally investigate or prosecute any alcohol or drug abuse patient.[facility] HospitalIn the event this information is protected by the Federal Confidentiality of Alcohol and Drug Abuse Patient Records regulations: The Federal rules restrict any use of the information to criminally investigate or prosecute any alcohol or drug abuse patient.[facility] [facility]In the event this information is protected by the Federal Confidentiality of Alcohol and Drug Abuse Patient Records regulations: The Federal rules restrict any use of the information to criminally investigate or prosecute any alcohol or drug abuse patient.[facility] the event this information is protected by the Federal Confidentiality of Alcohol and Drug Abuse Patient Records regulations: The Federal rules restrict any use of the information to criminally investigate or prosecute any alcohol or drug abuse patient.[facility]In the event this information is protected by the Federal Confidentiality of Alcohol and Drug Abuse Patient Records regulations: The Federal rules restrict any use of the information to criminally investigate or prosecute any alcohol or drug abuse patient.[facility]In the event this information is protected by the Federal Confidentiality of Alcohol and Drug Abuse Patient Records regulations: The Federal rules restrict any use of the information to criminally investigate or prosecute any alcohol or drug abuse patient.[facility]In the event this information is protected by the Federal Confidentiality of Alcohol and Drug Abuse Patient Records regulations: The Federal rules restrict any use of the information to criminally investigate or prosecute any alcohol or drug abuse patient.[facility]In the event this information is protected by the Federal Confidentiality of Alcohol and Drug Abuse Patient Records regulations: The Federal rules restrict any use of the information to criminally investigate or prosecute any alcohol or drug abuse patient.[facility]In the event this information is protected by the Federal Confidentiality of Alcohol and Drug Abuse Patient Records regulations: The Federal rules restrict any use of the information to criminally investigate or prosecute any alcohol or drug abuse patient.[facility]In the event this information is protected by the Federal Confidentiality of Alcohol and Drug Abuse Patient Records regulations: The Federal rules restrict any use of the information to criminally investigate or prosecute any alcohol or drug abuse patient.[facility]In the event this information is protected by the Federal Confidentiality of Alcohol and Drug Abuse Patient Records regulations: The Federal rules restrict any use of the information to criminally investigate or prosecute any alcohol or drug abuse patient.[facility]In the event this information is protected by the Federal Confidentiality of Alcohol and Drug Abuse Patient Records regulations: The Federal rules restrict any use of the information to criminally investigate or prosecute any alcohol or drug abuse patient.[facility]In the event this information is protected by the Federal Confidentiality of Alcohol and Drug Abuse Patient Records regulations: The Federal rules restrict any use of the information to criminally investigate or prosecute any alcohol or drug abuse patient.[facility]In the event this information is protected by the Federal Confidentiality of Alcohol and Drug Abuse Patient Records regulations: The Federal rules restrict any use of the information to criminally investigate or prosecute any alcohol or drug abuse patient.[facility]In the event this information is protected by the Federal Confidentiality of Alcohol and Drug Abuse Patient Records regulations: The Federal rules restrict any use of the information to criminally investigate or prosecute any alcohol or drug abuse patient.[facility] the event this information is protected by the Federal Confidentiality of Alcohol and Drug Abuse Patient Records regulations: The Federal rules restrict any use of the information to criminally investigate or prosecute any alcohol or drug abuse patient.[facility]In the event this information is protected by the Federal Confidentiality of Alcohol and Drug Abuse Patient Records regulations: The Federal rules restrict any use of the information to criminally investigate or prosecute any alcohol or drug abuse patient.[facility] HospitalIn the event this information is [...] or prosecute any alcohol or drug abuse patient.[facility] HospitalIn the event this information is protected by the Federal Confidentiality of Alcohol and Drug Abuse Patient Records regulations: The Federal rules restrict any use of the information to criminally investigate or prosecute any alcohol or drug abuse patient.[facility] HospitalIn the event this information is protected by the Federal Confidentiality of Alcohol and Drug Abuse Patient Records regulations: The Federal rules restrict any use of the information to criminally investigate or prosecute any alcohol or drug abuse patient.[facility]In the event this information is protected by the Federal Confidentiality of Alcohol and Drug Abuse Patient Records regulations: The Federal rules restrict any use of the information to criminally investigate or prosecute any alcohol or drug abuse patient.[facility]In the event this information is protected by the Federal Confidentiality of Alcohol and Drug Abuse Patient Records regulations: The Federal rules restrict any use of the information to criminally investigate or prosecute any alcohol or drug abuse patient.[facility]In the event this information is protected by the Federal Confidentiality of Alcohol and Drug Abuse Patient Records regulations: The Federal rules restrict any use of the information to criminally investigate or prosecute any alcohol or drug abuse patient.[facility]In the event this information is protected by the Federal Confidentiality of Alcohol and Drug Abuse Patient Records regulations: The Federal rules restrict any use of the information to criminally investigate or prosecute any alcohol or drug abuse patient.[facility]In the event this information is protected by the Federal Confidentiality of Alcohol and Drug Abuse Patient Records regulations: The Federal rules restrict any use of the information to criminally investigate or prosecute any alcohol or drug abuse patient.[facility]In the event this information is protected by the Federal Confidentiality of Alcohol and Drug Abuse Patient Records regulations: The Federal rules restrict any use of the information to criminally investigate or prosecute any alcohol or drug abuse patient.[facility]In the event this information is protected by the Federal Confidentiality of Alcohol and Drug Abuse Patient Records regulations: The Federal rules restrict any use of the information to criminally investigate or prosecute any alcohol or drug abuse patient.[facility]In the event this information is protected by the Federal Confidentiality of Alcohol and Drug Abuse Patient Records regulations: The Federal rules restrict any use of the information to criminally investigate or prosecute any alcohol or drug abuse patient.[facility]In the event this information is protected by the Federal Confidentiality of Alcohol and Drug Abuse Patient Records regulations: The Federal rules restrict any use of the information to criminally investigate or prosecute any alcohol or drug abuse patient.[facility]In the event this information is protected by the Federal Confidentiality of Alcohol and Drug Abuse Patient Records regulations: The Federal rules restrict any use of the information to criminally investigate or prosecute any alcohol or drug abuse patient.[facility]In the event this information is protected by the Federal Confidentiality of Alcohol and Drug Abuse Patient Records regulations: The Federal rules restrict any use of the information to criminally investigate or prosecute any alcohol or drug abuse patient.[facility]In the event this information is protected by the Federal Confidentiality of Alcohol and Drug Abuse Patient Records regulations: The Federal rules restrict any use of the information to criminally investigate or prosecute any alcohol or drug abuse patient.[facility]In the event this information is protected by the Federal Confidentiality of Alcohol and Drug Abuse Patient Records regulations: The Federal rules restrict any use of the information to criminally investigate or prosecute any alcohol or drug abuse patient.[facility]In the event this information is protected by the Federal Confidentiality of Alcohol and Drug Abuse Patient Records regulations: The Federal rules restrict any use of the information to criminally investigate or prosecute any alcohol or drug abuse patient.[facility]In the event this information is protected by the Federal Confidentiality of Alcohol and Drug Abuse Patient Records regulations: The Federal rules restrict any use of the information to criminally investigate or prosecute any alcohol or drug abuse patient.[facility]In the event this information is protected by the Federal Confidentiality of Alcohol and Drug Abuse Patient Records regulations: The Federal rules restrict any use of the information to criminally investigate or prosecute any alcohol or drug abuse patient.[facility]In the event this information is protected by the Federal Confidentiality of Alcohol and Drug Abuse Patient Records regulations: The Federal rules restrict any use of the information to criminally investigate or prosecute any alcohol or drug abuse patient.[facility]In the event this information is protected by the Federal Confidentiality of Alcohol and Drug Abuse Patient Records regulations: The Federal rules restrict any use of the information to criminally investigate or prosecute any alcohol or drug abuse patient.[facility]In the event this information is protected by the Federal Confidentiality of Alcohol and Drug Abuse Patient Records regulations: The Federal rules restrict any use of the information to criminally investigate or prosecute any alcohol or drug abuse patient.[facility]In the event this information is protected by the Federal Confidentiality of Alcohol and Drug Abuse Patient Records regulations: The Federal rules restrict any use of the information to criminally investigate or prosecute any alcohol or drug abuse patient.[facility]In the event this information is protected by the Federal Confidentiality of Alcohol and Drug Abuse Patient Records regulations: The Federal rules restrict any use of the information to criminally investigate or prosecute any alcohol or drug abuse patient.[facility]In the event this information is protected by the Federal Confidentiality of Alcohol and Drug Abuse Patient Records regulations: The Federal rules restrict any use of the information to criminally investigate or prosecute any alcohol or drug abuse patient.[facility]In the event this information is protected by the Federal Confidentiality of Alcohol and Drug Abuse Patient Records regulations: The Federal rules restrict any use of the information to criminally investigate or prosecute any alcohol or drug abuse patient.[facility]In the event this information is protected by the Federal Confidentiality of Alcohol and Drug Abuse Patient Records regulations: The Federal rules restrict any use of the information to criminally investigate or prosecute any alcohol or drug abuse patient.[facility]In the event this information is protected by the Federal Confidentiality of Alcohol and Drug Abuse Patient Records regulations: The Federal rules restrict any use of the information to criminally investigate or prosecute any alcohol or drug abuse patient.[facility]In the event this information is protected by the Federal Confidentiality of Alcohol and Drug Abuse Patient Records regulations: The Federal rules restrict any use of the information to criminally investigate or prosecute any alcohol or drug abuse patient.[facility]In the event this information is protected by the Federal Confidentiality of Alcohol and Drug Abuse Patient Records regulations: The Federal rules restrict any use of the information to criminally investigate or prosecute any alcohol or drug abuse patient.[facility]In the event this information is protected by the Federal Confidentiality of Alcohol and Drug Abuse Patient Records regulations: The Federal rules restrict any use of the information to criminally investigate or prosecute any alcohol or drug abuse patient.[facility]In the event this information is protected by the Federal Confidentiality of Alcohol and Drug Abuse Patient Records regulations: The Federal rules restrict any use of the information to criminally investigate or prosecute any alcohol or drug abuse patient.[facility]In the event this information is protected by the Federal Confidentiality of Alcohol and Drug Abuse Patient Records regulations: The Federal rules restrict any use of the information to criminally investigate or prosecute any alcohol or drug abuse patient.[facility]In the event this information is protected by the Federal Confidentiality of Alcohol and Drug Abuse Patient Records regulations: The Federal rules restrict any use of the information to criminally investigate or prosecute any alcohol or drug abuse patient.[facility]In the event this information is protected by the Federal Confidentiality of Alcohol and Drug Abuse Patient Records regulations: The Federal rules restrict any use of the information to criminally investigate or prosecute any alcohol or drug abuse patient.[facility]In the event this information is protected by the Federal Confidentiality of Alcohol and Drug Abuse Patient Records regulations: The Federal rules restrict any use of the information to criminally investigate or prosecute any alcohol or drug abuse patient.[facility]In the event this information is protected by the Federal Confidentiality of Alcohol and Drug Abuse Patient Records regulations: The Federal rules restrict any use of the information to criminally investigate or prosecute any alcohol or drug abuse patient.[facility]In the event this information is protected by the Federal Confidentiality of Alcohol and Drug Abuse Patient Records regulations: The Federal rules restrict any use of the information to criminally investigate or prosecute any alcohol or drug abuse patient.[facility]In the event this information is protected by the Federal Confidentiality of Alcohol and Drug Abuse Patient Records regulations: The Federal rules restrict any use of the information to criminally investigate or prosecute any alcohol or drug abuse patient.[facility]In the event this information is protected by the Federal Confidentiality of Alcohol and Drug Abuse Patient Records regulations: The Federal rules restrict any use of the information to criminally investigate or prosecute any alcohol or drug abuse patient.[facility]In the event this information is protected by the Federal Confidentiality of Alcohol and Drug Abuse Patient Records regulations: The Federal rules restrict any use of the information to criminally investigate or prosecute any alcohol or drug abuse patient.[facility]In the event this information is protected by the Federal Confidentiality of Alcohol and Drug Abuse Patient Records regulations: The Federal rules restrict any use of the information to criminally investigate or prosecute any alcohol or drug abuse patient.[facility]In the event this information is protected by the Federal Confidentiality of Alcohol and Drug Abuse Patient Records regulations: The Federal rules restrict any use of the information to criminally investigate or prosecute any alcohol or drug abuse patient.[facility]In the event this information is protected by the Federal Confidentiality of Alcohol and Drug Abuse Patient Records regulations: The Federal rules restrict any use of the information to criminally investigate or prosecute any alcohol or drug abuse patient.[facility]In the event this information is protected by the Federal Confidentiality of Alcohol and Drug Abuse Patient Records regulations: The Federal rules restrict any use of the information to criminally investigate or prosecute any alcohol or drug abuse patient.[facility]In the event this information is protected by the Federal Confidentiality of Alcohol and Drug Abuse Patient Records regulations: The Federal rules restrict any use of the information to criminally investigate or prosecute any alcohol or drug abuse patient.[facility] HospitalIn the event this information is protected by the Federal Confidentiality of Alcohol and Drug Abuse Patient Records regulations: The Federal rules restrict any use of the information to criminally investigate or prosecute any alcohol or drug abuse patient.[facility] the event this information is protected by the Federal Confidentiality of Alcohol and Drug Abuse Patient Records regulations: The Federal rules restrict any use of the information to criminally investigate or prosecute any alcohol or drug abuse patient.[facility]In the event this information is protected by the Federal Confidentiality of Alcohol and Drug Abuse Patient Records regulations: The Federal rules restrict any use of the information to criminally investigate or prosecute any alcohol or drug abuse patient.[facility] HospitalIn the event this information is [...] or prosecute any alcohol or drug abuse patient.[facility] HospitalIn the event this information is protected by the Federal Confidentiality of Alcohol and Drug Abuse Patient Records regulations: The Federal rules restrict any use of the information to criminally investigate or prosecute any alcohol or drug abuse patient.[facility]In the event this information is protected by the Federal Confidentiality of Alcohol and Drug Abuse Patient Records regulations: The Federal rules restrict any use of the information to criminally investigate or prosecute any alcohol or drug abuse patient.[facility]In the event this information is protected by the Federal Confidentiality of Alcohol and Drug Abuse Patient Records regulations: The Federal rules restrict any use of the information to criminally investigate or prosecute any alcohol or drug abuse patient.[facility]In the event this information is protected by the Federal Confidentiality of Alcohol and Drug Abuse Patient Records regulations: The Federal rules restrict any use of the information to criminally investigate or prosecute any alcohol or drug abuse patient.[facility]In the event this information is protected by the Federal Confidentiality of Alcohol and Drug Abuse Patient Records regulations: The Federal rules restrict any use of the information to criminally investigate or prosecute any alcohol or drug abuse patient.[facility]In the event this information is protected by the Federal Confidentiality of Alcohol and Drug Abuse Patient Records regulations: The Federal rules restrict any use of the information to criminally investigate or prosecute any alcohol or drug abuse patient.[facility]In the event this information is protected by the Federal Confidentiality of Alcohol and Drug Abuse Patient Records regulations: The Federal rules restrict any use of the information to criminally investigate or prosecute any alcohol or drug abuse patient.[facility]In the event this information is protected by the Federal Confidentiality of Alcohol and Drug Abuse Patient Records regulations: The Federal rules restrict any use of the information to criminally investigate or prosecute any alcohol or drug abuse patient.[facility]In the event this information is protected by the Federal Confidentiality of Alcohol and Drug Abuse Patient Records regulations: The Federal rules restrict any use of the information to criminally investigate or prosecute any alcohol or drug abuse patient.[facility]In the event this information is protected by the Federal Confidentiality of Alcohol and Drug Abuse Patient Records regulations: The Federal rules restrict any use of the information to criminally investigate or prosecute any alcohol or drug abuse patient.[facility]In the event this information is protected by the Federal Confidentiality of Alcohol and Drug Abuse Patient Records regulations: The Federal rules restrict any use of the information to criminally investigate or prosecute any alcohol or drug abuse patient.[facility]In the event this information is protected by the Federal Confidentiality of Alcohol and Drug Abuse Patient Records regulations: The Federal rules restrict any use of the information to criminally investigate or prosecute any alcohol or drug abuse patient.[facility]In the event this information is protected by the Federal Confidentiality of Alcohol and Drug Abuse Patient Records regulations: The Federal rules restrict any use of the information to criminally investigate or prosecute any alcohol or drug abuse patient.[facility]In the event this information is protected by the Federal Confidentiality of Alcohol and Drug Abuse Patient Records regulations: The Federal rules restrict any use of the information to criminally investigate or prosecute any alcohol or drug abuse patient.[facility]In the event this information is protected by the Federal Confidentiality of Alcohol and Drug Abuse Patient Records regulations: The Federal rules restrict any use of the information to criminally investigate or prosecute any alcohol or drug abuse patient.[facility]In the event this information is protected by the Federal Confidentiality of Alcohol and Drug Abuse Patient Records regulations: The Federal rules restrict any use of the information to criminally investigate or prosecute any alcohol or drug abuse patient.[facility]In the event this information is protected by the Federal Confidentiality of Alcohol and Drug Abuse Patient Records regulations: The Federal rules restrict any use of the information to criminally investigate or prosecute any alcohol or drug abuse patient.[facility]In the event this information is protected by the Federal Confidentiality of Alcohol and Drug Abuse Patient Records regulations: The Federal rules restrict any use of the information to criminally investigate or prosecute any alcohol or drug abuse patient.[facility]In the event this information is protected by the Federal Confidentiality of Alcohol and Drug Abuse Patient Records regulations: The Federal rules restrict any use of the information to criminally investigate or prosecute any alcohol or drug abuse patient.[facility]In the event this information is protected by the Federal Confidentiality of Alcohol and Drug Abuse Patient Records regulations: The Federal rules restrict any use of the information to criminally investigate or prosecute any alcohol or drug abuse patient.[facility]In the event this information is protected by the Federal Confidentiality of Alcohol and Drug Abuse Patient Records regulations: The Federal rules restrict any use of the information to criminally investigate or prosecute any alcohol or drug abuse patient.[facility]In the event this information is protected by the Federal Confidentiality of Alcohol and Drug Abuse Patient Records regulations: The Federal rules restrict any use of the information to criminally investigate or prosecute any alcohol or drug abuse patient.[facility] HospitalIn the event this information is protected by the Federal Confidentiality of Alcohol and Drug Abuse Patient Records regulations: The Federal rules restrict any use of the information to criminally investigate or prosecute any alcohol or drug abuse patient.[facility]In the event this information is protected by the Federal Confidentiality of Alcohol and Drug Abuse Patient Records regulations: The Federal rules restrict any use of the information to criminally investigate or prosecute any alcohol or drug abuse patient.[facility] HospitalIn the event this information is protected by the Federal Confidentiality of Alcohol and Drug Abuse Patient Records regulations: The Federal rules restrict any use of the information to criminally investigate or prosecute any alcohol or drug abuse patient.[facility] HospitalIn the event this information is protected by the Federal Confidentiality of Alcohol and Drug Abuse Patient Records regulations: The Federal rules restrict any use of the information to criminally investigate or prosecute any alcohol or drug abuse patient.[facility] HospitalIn the event this information is protected by the Federal Confidentiality of Alcohol and Drug Abuse Patient Records regulations: The Federal rules restrict any use of the information to criminally investigate or prosecute any alcohol or drug abuse patient.[facility] HospitalIn the event this information is protected by the Federal Confidentiality of Alcohol and Drug Abuse Patient Records regulations: The Federal rules restrict any use of the information to criminally investigate or prosecute any alcohol or drug abuse patient.[facility] HospitalIn the event this information is protected by the Federal Confidentiality of Alcohol and Drug Abuse Patient Records regulations: The Federal rules restrict any use of the information to criminally investigate or prosecute any alcohol or drug abuse patient.[facility] HospitalIn the event this information is protected by the Federal Confidentiality of Alcohol and Drug Abuse Patient Records regulations: The Federal rules restrict any use of the information to criminally investigate or prosecute any alcohol or drug abuse patient.[facility] HospitalIn the event this information is protected by the Federal Confidentiality of Alcohol and Drug Abuse Patient Records regulations: The Federal rules restrict any use of the information to criminally investigate or prosecute any alcohol or drug abuse patient.[facility] HospitalIn the event this information is protected by the Federal Confidentiality of Alcohol and Drug Abuse Patient Records regulations: The Federal rules restrict any use of the information to criminally investigate or prosecute any alcohol or drug abuse patient.[facility] HospitalIn the event this information is protected by the Federal Confidentiality of Alcohol and Drug Abuse Patient Records regulations: The Federal rules restrict any use of the information to criminally investigate or prosecute any alcohol or drug abuse patient.[facility] HospitalIn the event this information is protected by the Federal Confidentiality of Alcohol and Drug Abuse Patient Records regulations: The Federal rules restrict any use of the information to criminally investigate or prosecute any alcohol or drug abuse patient.[facility] HospitalIn the event this information is protected by the Federal Confidentiality of Alcohol and Drug Abuse Patient Records regulations: The Federal rules restrict any use of the information to criminally investigate or prosecute any alcohol or drug abuse patient.[facility] HospitalIn the event this information is protected by the Federal Confidentiality of Alcohol and Drug Abuse Patient Records regulations: The Federal rules restrict any use of the information to criminally investigate or prosecute any alcohol or drug abuse patient.[facility] HospitalIn the event this information is protected by the Federal Confidentiality of Alcohol and Drug Abuse Patient Records regulations: The Federal rules restrict any use of the information to criminally investigate or prosecute any alcohol or drug abuse patient.[facility] HospitalIn the event this information is protected by the Federal Confidentiality of Alcohol and Drug Abuse Patient Records regulations: The Federal rules restrict any use of the information to criminally investigate or prosecute any alcohol or drug abuse patient.[facility] HospitalIn the event this information is protected by the Federal Confidentiality of Alcohol and Drug Abuse Patient Records regulations: The Federal rules restrict any use of the information to criminally investigate or prosecute any alcohol or drug abuse patient.[facility] HospitalIn the event this information is protected by the Federal Confidentiality of Alcohol and Drug Abuse Patient Records regulations: The Federal rules restrict any use of the information to criminally investigate or prosecute any alcohol or drug abuse patient.[facility] HospitalIn the event this information is protected by the Federal Confidentiality of Alcohol and Drug Abuse Patient Records regulations: The Federal rules restrict any use of the information to criminally investigate or prosecute any alcohol or drug abuse patient.[facility] HospitalIn the event this information is protected by the Federal Confidentiality of Alcohol and Drug Abuse Patient Records regulations: The Federal rules restrict any use of the information to criminally investigate or prosecute any alcohol or drug abuse patient.[facility] HospitalIn the event this information is protected by the Federal Confidentiality of Alcohol and Drug Abuse Patient Records regulations: The Federal rules restrict any use of the information to criminally investigate or prosecute any alcohol or drug abuse patient.[facility] HospitalIn the event this information is protected by the Federal Confidentiality of Alcohol and Drug Abuse Patient Records regulations: The Federal rules restrict any use of the information to criminally investigate or prosecute any alcohol or drug abuse patient.[facility] HospitalIn the event this information is protected by the Federal Confidentiality of Alcohol and Drug Abuse Patient Records regulations: The Federal rules restrict any use of the information to criminally investigate or prosecute any alcohol or drug abuse patient.[facility] HospitalIn the event this information is protected by the Federal Confidentiality of Alcohol and Drug Abuse Patient Records regulations: The Federal rules restrict any use of the information to criminally investigate or prosecute any alcohol or drug abuse patient.[facility] the event this information is protected by the Federal Confidentiality of Alcohol and Drug Abuse Patient Records regulations: The Federal rules restrict any use of the information to criminally investigate or prosecute any alcohol or drug abuse patient.[facility] HospitalIn the event this information is protected by the Federal Confidentiality of Alcohol and Drug Abuse Patient Records regulations: The Federal rules restrict any use of the information to criminally investigate or prosecute any alcohol or drug abuse patient.[facility] HospitalIn the event this information is [...] or prosecute any alcohol or drug abuse patient.[facility] HospitalIn the event this information is protected by the Federal Confidentiality of Alcohol and Drug Abuse Patient Records regulations: The Federal rules restrict any use of the information to criminally investigate or prosecute any alcohol or drug abuse patient.[facility] HospitalIn the event this information is protected by the Federal Confidentiality of Alcohol and Drug Abuse Patient Records regulations: The Federal rules restrict any use of the information to criminally investigate or prosecute any alcohol or drug abuse patient.[facility] HospitalIn the event this information is protected by the Federal Confidentiality of Alcohol and Drug Abuse Patient Records regulations: The Federal rules restrict any use of the information to criminally investigate or prosecute any alcohol or drug abuse patient.[facility] HospitalIn the event this information is protected by the Federal Confidentiality of Alcohol and Drug Abuse Patient Records regulations: The Federal rules restrict any use of the information to criminally investigate or prosecute any alcohol or drug abuse patient.[facility] HospitalIn the event this information is protected by the Federal Confidentiality of Alcohol and Drug Abuse Patient Records regulations: The Federal rules restrict any use of the information to criminally investigate or prosecute any alcohol or drug abuse patient.[facility] HospitalIn the event this information is protected by the Federal Confidentiality of Alcohol and Drug Abuse Patient Records regulations: The Federal rules restrict any use of the information to criminally investigate or prosecute any alcohol or drug abuse patient.[facility] HospitalIn the event this information is protected by the Federal Confidentiality of Alcohol and Drug Abuse Patient Records regulations: The Federal rules restrict any use of the information to criminally investigate or prosecute any alcohol or drug abuse patient.[facility] HospitalIn the event this information is protected by the Federal Confidentiality of Alcohol and Drug Abuse Patient Records regulations: The Federal rules restrict any use of the information to criminally investigate or prosecute any alcohol or drug abuse patient.[facility] HospitalIn the event this information is protected by the Federal Confidentiality of Alcohol and Drug Abuse Patient Records regulations: The Federal rules restrict any use of the information to criminally investigate or prosecute any alcohol or drug abuse patient.[facility] HospitalIn the event this information is protected by the Federal Confidentiality of Alcohol and Drug Abuse Patient Records regulations: The Federal rules restrict any use of the information to criminally investigate or prosecute any alcohol or drug abuse patient.[facility] HospitalIn the event this information is protected by the Federal Confidentiality of Alcohol and Drug Abuse Patient Records regulations: The Federal rules restrict any use of the information to criminally investigate or prosecute any alcohol or drug abuse patient.[facility] HospitalIn the event this information is protected by the Federal Confidentiality of Alcohol and Drug Abuse Patient Records regulations: The Federal rules restrict any use of the information to criminally investigate or prosecute any alcohol or drug abuse patient.[facility] HospitalIn the event this information is protected by the Federal Confidentiality of Alcohol and Drug Abuse Patient Records regulations: The Federal rules restrict any use of the information to criminally investigate or prosecute any alcohol or drug abuse patient.[facility] HospitalIn the event this information is protected by the Federal Confidentiality of Alcohol and Drug Abuse Patient Records regulations: The Federal rules restrict any use of the information to criminally investigate or prosecute any alcohol or drug abuse patient.[facility] HospitalIn the event this information is protected by the Federal Confidentiality of Alcohol and Drug Abuse Patient Records regulations: The Federal rules restrict any use of the information to criminally investigate or prosecute any alcohol or drug abuse patient.[facility] HospitalIn the event this information is protected by the Federal Confidentiality of Alcohol and Drug Abuse Patient Records regulations: The Federal rules restrict any use of the information to criminally investigate or prosecute any alcohol or drug abuse patient.[facility] HospitalIn the event this information is protected by the Federal Confidentiality of Alcohol and Drug Abuse Patient Records regulations: The Federal rules restrict any use of the information to criminally investigate or prosecute any alcohol or drug abuse patient.[facility] HospitalIn the event this information is protected by the Federal Confidentiality of Alcohol and Drug Abuse Patient Records regulations: The Federal rules restrict any use of the information to criminally investigate or prosecute any alcohol or drug abuse patient.[facility] HospitalIn the event this information is protected by the Federal Confidentiality of Alcohol and Drug Abuse Patient Records regulations: The Federal rules restrict any use of the information to criminally investigate or prosecute any alcohol or drug abuse patient.[facility] HospitalIn the event this information is protected by the Federal Confidentiality of Alcohol and Drug Abuse Patient Records regulations: The Federal rules restrict any use of the information to criminally investigate or prosecute any alcohol or drug abuse patient.[facility] HospitalIn the event this information is protected by the Federal Confidentiality of Alcohol and Drug Abuse Patient Records regulations: The Federal rules restrict any use of the information to criminally investigate or prosecute any alcohol or drug abuse patient.[facility] HospitalIn the event this information is protected by the Federal Confidentiality of Alcohol and Drug Abuse Patient Records regulations: The Federal rules restrict any use of the information to criminally investigate or prosecute any alcohol or drug abuse patient.[facility] HospitalIn the event this information is protected by the Federal Confidentiality of Alcohol and Drug Abuse Patient Records regulations: The Federal rules restrict any use of the information to criminally investigate or prosecute any alcohol or drug abuse patient.[facility] HospitalIn the event this information is protected by the Federal Confidentiality of Alcohol and Drug Abuse Patient Records regulations: The Federal rules restrict any use of the information to criminally investigate or prosecute any alcohol or drug abuse patient.[facility] HospitalIn the event this information is protected by the Federal Confidentiality of Alcohol and Drug Abuse Patient Records regulations: The Federal rules restrict any use of the information to criminally investigate or prosecute any alcohol or drug abuse patient.[facility] HospitalIn the event this information is protected by the Federal Confidentiality of Alcohol and Drug Abuse Patient Records regulations: The Federal rules restrict any use of the information to criminally investigate or prosecute any alcohol or drug abuse patient.[facility] HospitalIn the event this information is protected by the Federal Confidentiality of Alcohol and Drug Abuse Patient Records regulations: The Federal rules restrict any use of the information to criminally investigate or prosecute any alcohol or drug abuse patient.[facility] HospitalIn the event this information is protected by the Federal Confidentiality of Alcohol and Drug Abuse Patient Records regulations: The Federal rules restrict any use of the information to criminally investigate or prosecute any alcohol or drug abuse patient.[facility] HospitalIn the event this information is protected by the Federal Confidentiality of Alcohol and Drug Abuse Patient Records regulations: The Federal rules restrict any use of the information to criminally investigate or prosecute any alcohol or drug abuse patient.[facility] HospitalIn the event this information is protected by the Federal Confidentiality of Alcohol and Drug Abuse Patient Records regulations: The Federal rules restrict any use of the information to criminally investigate or prosecute any alcohol or drug abuse patient.[facility] HospitalIn the event this information is protected by the Federal Confidentiality of Alcohol and Drug Abuse Patient Records regulations: The Federal rules restrict any use of the information to criminally investigate or prosecute any alcohol or drug abuse patient.[facility] HospitalIn the event this information is protected by the Federal Confidentiality of Alcohol and Drug Abuse Patient Records regulations: The Federal rules restrict any use of the information to criminally investigate or prosecute any alcohol or drug abuse patient.[facility] HospitalIn the event this information is protected by the Federal Confidentiality of Alcohol and Drug Abuse Patient Records regulations: The Federal rules restrict any use of the information to criminally investigate or prosecute any alcohol or drug abuse patient.[facility] HospitalIn the event this information is protected by the Federal Confidentiality of Alcohol and Drug Abuse Patient Records regulations: The Federal rules restrict any use of the information to criminally investigate or prosecute any alcohol or drug abuse patient.[facility] HospitalIn the event this information is protected by the Federal Confidentiality of Alcohol and Drug Abuse Patient Records regulations: The Federal rules restrict any use of the information to criminally investigate or prosecute any alcohol or drug abuse patient.[facility] HospitalIn the event this information is protected by the Federal Confidentiality of Alcohol and Drug Abuse Patient Records regulations: The Federal rules restrict any use of the information to criminally investigate or prosecute any alcohol or drug abuse patient.[facility] HospitalIn the event this information is protected by the Federal Confidentiality of Alcohol and Drug Abuse Patient Records regulations: The Federal rules restrict any use of the information to criminally investigate or prosecute any alcohol or drug abuse patient.[facility] HospitalIn the event this information is protected by the Federal Confidentiality of Alcohol and Drug Abuse Patient Records regulations: The Federal rules restrict any use of the information to criminally investigate or prosecute any alcohol or drug abuse patient.[facility] HospitalIn the event this information is protected by the Federal Confidentiality of Alcohol and Drug Abuse Patient Records regulations: The Federal rules restrict any use of the information to criminally investigate or prosecute any alcohol or drug abuse patient.[facility] HospitalIn the event this information is protected by the Federal Confidentiality of Alcohol and Drug Abuse Patient Records regulations: The Federal rules restrict any use of the information to criminally investigate or prosecute any alcohol or drug abuse patient.[facility] HospitalIn the event this information is protected by the Federal Confidentiality of Alcohol and Drug Abuse Patient Records regulations: The Federal rules restrict any use of the information to criminally investigate or prosecute any alcohol or drug abuse patient.[facility] HospitalIn the event this information is protected by the Federal Confidentiality of Alcohol and Drug Abuse Patient Records regulations: The Federal rules restrict any use of the information to criminally investigate or prosecute any alcohol or drug abuse patient.[facility] HospitalIn the event this information is protected by the Federal Confidentiality of Alcohol and Drug Abuse Patient Records regulations: The Federal rules restrict any use of the information to criminally investigate or prosecute any alcohol or drug abuse patient.[facility] HospitalIn the event this information is protected by the Federal Confidentiality of Alcohol and Drug Abuse Patient Records regulations: The Federal rules restrict any use of the information to criminally investigate or prosecute any alcohol or drug abuse patient.[facility] HospitalIn the event this information is protected by the Federal Confidentiality of Alcohol and Drug Abuse Patient Records regulations: The Federal rules restrict any use of the information to criminally investigate or prosecute any alcohol or drug abuse patient.[facility] HospitalIn the event this information is protected by the Federal Confidentiality of Alcohol and Drug Abuse Patient Records regulations: The Federal rules restrict any use of the information to criminally investigate or prosecute any alcohol or drug abuse patient.[facility] HospitalIn the event this information is protected by the Federal Confidentiality of Alcohol and Drug Abuse Patient Records regulations: The Federal rules restrict any use of the information to criminally investigate or prosecute any alcohol or drug abuse patient.[facility] HospitalIn the event this information is protected by the Federal Confidentiality of Alcohol and Drug Abuse Patient Records regulations: The Federal rules restrict any use of the information to criminally investigate or prosecute any alcohol or drug abuse patient.[facility] Reason for Visit (unrecogniz ed section and content) Reason Comments Follow Up Specialty Diagnoses / Procedures Referred By Contac t Referred To Contact Family Medicine / FAMILY MEDICINE Diagnoses Follow up. Procedures 4C EST Ivette Grimes MD [address] [place] [address] Ivette Grimes MD [address] [place] [address] Referral ID Status Reason Start Date Expiration Date V isits Requested Visits Authorized [id number] Pending Review 01/31/2023 05/01/2023 1 1 Reason Comments New Patient Specialty Diagnoses / Procedures Referred By Contac t Referred To Contact Pain Management Diagnoses Chronic left shoulder pain Procedures CONSULT TO PAIN MGT OFFICE/OUTPATIENT NEW HIGH MDM 60-74 MINUTES Ivette Grimes MD [address] [place] [address] Referral ID Status Reason Start Date Expiration Date V isits Requested Visits Authorized [id number] Closed PCP Requested Referral 01/22/2022 01/22/2023 1 [...] migrainosus Procedures CONSULT TO NEUROLOGY OFFICE/OUTPATIENT NEW [facility] 60-74 MINUTES Ivette Grimes MD [address] [place] [address] Referral ID Status Reason Start Date Expiration Date V isits Requested Visits Authorized [id number] Closed PCP Requested Referral 12/25/2021 12/25/2022 1 1 Reason Onset Date Comments Refill Request 04/16/2022 Reason Comments Follow Up shoulder pain, switc h medication back to gabapentin Specialty Diagnoses / Procedures Referred By Contac t Referred To Contact Family Practice / FAMILY MEDICINE Diagnoses Follow-up exam follow up Procedures OFFICE/OUTPATIENT ESTABLISHED [facility] 40-54 MIN MYC OFFICE VISIT Ivette Grimes MD [address] [place] [address] Ivette Grimes MD [address] [place] [address] Referral ID Status Reason Start Date Expiration Date Visits Re quested Visits Authorized [id number] Closed 04/17/2022 11/03/2022 1 1 Reason Onset [...] IMG S&I PROCEDURE 20 Elle Rasheed MD [address] [address] Elle Rasheed MD [address] [place] [address] Referral ID Status Reason Start Date Expiration Date Visits Re quested Visits Authorized [id number] Closed 05/10/2022 06/10/2022 1 1 Reason Comments Procedure Follow Up Reason Comments Follow Up Specialty Diagnoses / Procedures Referred By Contac t Referred To Contact Pain Management / PAIN MANAGEMENT Diagnoses OV & follow up inj Procedures OFFICE/OUTPATIENT [facility] [facility] 30-39 MIN EST PATIENT Elle Rasheed MD [address] [address] Adelina Marinelli, [email or web address].[email or web address] [address] [place] [address] Referral ID Status Reason Start Date Expiration Date Visits Re quested Visits Authorized [id number] Closed 11/04/2021 11/03/2022 1 1 Reason Comments Appointment Reason Comments Headache follow up Specialty Diagnoses / Procedures Referred By Contac t Referred To Contact Neurology Diagnoses Migraine with aura, not intractable, without status migrainosus Procedures CONSULT TO NEUROLOGY OFFICE/OUTPATIENT [facility] 60-74 MINUTES Ivette Grimes MD [address] [place] [address] Reason Comments Orders Reason Onset Date Comments Refill Request 06/22/2022 Reason Onset Date Comments Refill Request 07/10/2022 Reason Comments Patient Update Injection questions Reason Comments Chronic Migraine X 6-7 years Specialty Diagnoses / Procedures Referred By Contac t Referred To Contact Diagnoses Intractable migraine without aura and without status migrainosus Procedures CONSULT TO HEADACHE CLINIC OFFICE/OUTPATIENT [facility] MDM 60-74 MINUTES Tara Gillette, THOM.CHEMISTRY LECTURER [address] [place] [address] Referral ID Status Reason Start Date Expiration Date V isits Requested Visits Authorized [id number] Closed PCP Requested Referral 06/07/2022 06/07/2023 1 [...] Follow-up exam follow up Procedures OFFICE/OUTPATIENT [facility] MDM 40-54 MIN MYC OFFICE VISIT Ivette Grimes MD [address] [place] [id number] Ivette Grimes MD [address] [place] [address] Referral ID Status Reason Start Date Expiration Date V isits Requested Visits Authorized [id number] Authorized 04/17/2022 11/03/2022 99 99 Reason Comments Patient Update Reason Comments Follow Up Acute Visit Reason Comments Fatigue Specialty Diagnoses / Procedures Referred By Petra meek Referred To Contact Family Medicine / FAMILY MEDICINE Diagnoses dizzy-follow up from virtual with Dr Bianchi 09/03 Procedures 4C EST Ivette Grimes MD [address] [place] [address] Ivette Grimes MD [address] [place] [address] Referral ID Status Reason Start Date Expiration Date Visits Re quested Visits Authorized [id number] Closed 09/04/2022 12/03/2022 1 1 Reason Onset [...] MINUTES VIDEO PSYC/PSYL NEW Self Grace Coronel, LIBRARY CLERK TALKING BOOKS.CHEMISTRY LECTURER [address] [place] [address] Referral ID Status Reason Start Date Expiration Date Visits Re quested Visits Authorized [id number] Closed 11/04/2021 11/03/2022 1 1 Reason Comments Follow Up Pain (Shoulder Pain) Left Specialty Diagnoses / Procedures Referred By Contac t Referred To Contact Pain Management / PAIN MANAGEMENT Diagnoses Examination wants to discuss options since Insurance denied RFA Procedures OFFICE/OUTPATIENT ESTABLISHED MOD MDM 30-39 MIN EST PATIENT Self Adelina Marinelli, LIBRARY CLERK TALKING BOOKS.CHEMISTRY LECTURER [address] [place] [address] Referral ID Status Reason Start Date Expiration Date V isits Requested Visits Authorized [id number] Closed Patient Cleared - Admin/Chairm an/Director advise to proceed 11/08/2022 02/06/2023 1 1 Reason Onset Date Comments Refill Request 11/15/2022 Reason Onset Date Comments Refill Request 11/23/2022 Reason Comments ER F/U Reason Comments Patient Question [place] appointment on 12/05/22 Reason Comments Acute Visit [...] referral botox 200 units every 90 days [id number] Karen Bansal, LIBRARY CLERK TALKING BOOKS.CHEMISTRY LECTURER [address] [place] [address] Neur Adult Main [address] [phone] Referral ID Status Reason Start Date Expiration Date V isits Requested Visits Authorized [id number] Authorized 08/15/2022 01/30/2023 2 2 Reason Comments [...] Referred By Contac t Referred To Contact [employer] Diagnoses annual Procedures EST I ANNUAL PATIENT Self Galina Camacho MD [address] [place] [address] Referral ID Status Reason Start Date Expiration Date V isits Requested Visits Authorized [id number] Closed Patient Cleared - INN Insurance Found [...] due on 04/22/23 Fatuma Beckford PA-C [address] [place] [address] Neur Adult Main [address] [phone] Referral ID Status Reason Start Date Expiration Date V isits Requested Visits Authorized [id number] Authorized 04/02/2023 04/02/2024 4 4 Reason Comments Pt requesting Boot Reason Comments Follow Up Reason Comments Follow Up MRI results. Reason Onset Date Comments Refill Request 06/08/2023 Reason Comments New Bone spurs Pain Bone spurs Reason Onset Date Comments Refill Request 07/05/2023 Reason Comments Forms [facility] preventative car e Reason Onset Date Comments Refill Request 09/09/2023 Reason Onset Date Comments Refill Request 09/23/2023 Reason Onset Date Comments Refill Request 10/14/2023 Reason Comments Diabetes Reason Onset Date Comments Refill Request 01/01/2024 Reason Comments Insurance Authorization Reason Onset Date Comments Refill Request 01/22/2024 Reason Onset Date Comments Refill Request 02/28/2024 Reason Comments Botox Injection Specialty Diagnoses / Procedures [facility] To Contact ADULT NEUROLOGY Diagnoses Intractable chronic migraine without aura Procedures BOTULINUM TOXIN A PER 1 UNIT CHEMODERVATE FACIAL/TRIGEM/CERV MUSC MIGRAINE Renewal botox 200 units every 90 days. Patient due on 04/22/23 Fatuma Beckford PA-C [address] [place] [address] [place] [address] Neur Adult Main [address] [place] [address] Referral ID Status Reason Start Date Expiration Date Visits Re quested Visits Authorized [id number] Closed 04/02/2023 04/02/2024 4 4 Reason Comments [...] 1 UNIT CHEMODERVATE FACIAL/TRIGEM/CERV MUSC MIGRAINE Fatuma Beckfrod PA-C [address] [place] [address] [place] [address] [address] [place] [address] [place] [address] Referral ID Status Reason Start Date Expiration Date V isits Requested Visits Authorized [id number] Authorized 07/01/2024 11/03/2024 99 99 Reason Onset [...] Onset Date Comments Transition Of Care 07/09/2025 [facility] Discharge 07/07/25 Reason Comments Hospital F/U [facility] DX Sepsis, UTI D /C 07/07 Care Teams (unrecognized sec tion and content) Working Supervisor Relationship Specialty Start Date End Date Ivette Grimes MD [address] [place], [place] [id number] PCP - General Family Practice 11/21/13 Jagdish Carballo [facility] [address] [place], [place] [address] Pharmacist Pharmacy 05/19/20 Working Supervisor Relationship Specialty Start Date End Date Ivette Grimes MD [address] [place], [place] [id number] PCP - General Family Practice 11/21/13 Jagdish Carballo [facility] [address] [place], [place] [id number] Pharmacist Pharmacy 05/19/20 Working Supervisor Relationship Specialty Start Date End Date Ivette Grimes MD [address] [place] [address] PCP - General Family Practice 11/21/13 [facility] [address] [place] [address] Pharmacist Pharmacy 05/19/20 Working Supervisor Relationship Specialty Start Date End Date Ivette Grimes MD [address] [place] [address] PCP - General Family Practice 11/21/13 [facility] [address] [place] [address] Pharmacist Pharmacy 05/19/20 Working Supervisor Relationship Specialty Start Date End Date Ivette Grimes MD [address] [place] [address] PCP - General Family Practice 11/21/13 [facility] [address] [place] [address] Pharmacist Pharmacy 05/19/20 Working Supervisor Relationship Specialty Start Date End Date Ivette Grimes MD [address] [place] [address] PCP - General Family Practice 11/21/13 [facility] [address] [place] [address] Pharmacist Pharmacy 05/19/20 Working Supervisor Relationship Specialty Start Date End Date Ivette Grimes MD [address] [place] [address] PCP - General Family Practice 11/21/13 [facility] [address] [place] [address] Pharmacist Pharmacy 05/19/20 Working Supervisor Relationship Specialty Start Date End Date Ivette Grimes MD [address] [place] [address] PCP - General Family Practice 11/21/13 Jagdish Carballo, [facility] [address] [facility] [place] [address] Pharmacist Pharmacy 05/19/20 Working Supervisor Relationship Specialty Start Date End Date Ivette Grimes MD [address] [place] [address] PCP - General Family Practice 11/21/13 Jagdish Carballo, [facility] [address] [facility] [place] [address] Pharmacist Pharmacy 05/19/20 Working Supervisor Relationship Specialty Start Date End Date Ivette Grimes MD [address] [place] [address] PCP - General Family Practice 11/21/13 Jagdish Carballo, [facility] [address] [facility] [place] [address] Pharmacist Pharmacy 05/19/20 Working Supervisor Relationship Specialty Start Date End Date Ivette Grimes MD [address] [place] [address] PCP - General Family Practice 11/21/13 Jagdish Carballo, [facility] [address] [facility] [place] [address] Pharmacist Pharmacy 05/19/20 Working Supervisor Relationship Specialty Start Date End Date Ivette Grimes MD [address] [place] [address] PCP - General Family Practice 11/21/13 Jagdish Carbalol, [facility] [address] [place] [address] Pharmacist Pharmacy 05/19/20 Working Supervisor Relationship Specialty Start Date End Date Ivette Grimes MD [address] [place] [address] PCP - General Family Practice 11/21/13 [facility] [address] [place] [address] Pharmacist Pharmacy 05/19/20 Working Supervisor Relationship Specialty Start Date End Date Ivette Grimes MD [address] [place] [address] PCP - General Family Practice 11/21/13 [facility] [address] [place] [address] Pharmacist Pharmacy 05/19/20 Working Supervisor Relationship Specialty Start Date End Date Ivette Grimes MD [address] [place] [address] PCP - General Family Practice 11/21/13 [facility] [address] [place] [address] Pharmacist Pharmacy 05/19/20 Working Supervisor Relationship Specialty Start Date End Date Ivette Grimes MD [address] [place] [address] PCP - General Family Practice 11/21/13 [facility] [address] [place] [address] Pharmacist Pharmacy 05/19/20 Working Supervisor Relationship Specialty Start Date End Date Ivette Grimes MD [address] [place] [address] PCP - General Family Practice 11/21/13 Jagdish Carballo, [facility] [address] [facility] [place] [address] Pharmacist Pharmacy 05/19/20 Working Supervisor Relationship Specialty Start Date End Date Ivette Grimes MD [address] [place] [address] PCP - General Family Practice 11/21/13 [facility] [address] [place] [address] Pharmacist Pharmacy 05/19/20 Working Supervisor Relationship Specialty Start Date End Date Ivette Grimes MD [address] [place] [address] PCP - General Family Practice 11/21/13 [facility] [address] [place] [address] Pharmacist Pharmacy 05/19/20 Working Supervisor Relationship Specialty Start Date End Date Ivette Grimes MD [address] [place] [address] PCP - General Family Medicine 11/21/13 [facility] [address] [place] [address] Pharmacist Pharmacy 05/19/20 Working Supervisor Relationship Specialty Start Date End Date Ivette Grimes MD [address] [place] [address] PCP - General Family Medicine 11/21/13 [facility] [address] [place] [address] Pharmacist Pharmacy 05/19/20 Working Supervisor Relationship Specialty Start Date End Date Ivette Grimes MD [address] [place] [address] PCP - General Family Medicine 11/21/13 [facility] [address] [facility] [place] [address] Pharmacist Pharmacy 05/19/20 Working Supervisor Relationship Specialty Start Date End Date Ivette Grimes MD [address] [facility] [place] [address] PCP - General Family Medicine 11/21/13 [facility] [address] [facility] [place] [address] Pharmacist Pharmacy 05/19/20 Working Supervisor Relationship Specialty Start Date End Date Ivette Grimes MD [address] [place] [address] PCP - General Family Medicine 11/21/13 [facility] [address] [place] [address] Pharmacist Pharmacy 05/19/20 Working Supervisor Relationship Specialty Start Date End Date Ivette Grimes MD [address] [place] [address] PCP - General Family Medicine 11/21/13 [facility] [address] [facility] [place] [address] Pharmacist Pharmacy 05/19/20 Working Supervisor Relationship Specialty Start Date End Date Ivette Grimes MD [address] [place] [address] PCP - General Family Medicine 11/21/13 Jagdish Carballo, [facility] [address] [place] [address] Pharmacist Pharmacy 05/19/20 Working Supervisor Relationship Specialty Start Date End Date Ivette Grimes MD [address] [place] [address] PCP - General Family Medicine 11/21/13 MartinhenryJagdish, [facility] [address] [facility] [place] [address] Pharmacist Pharmacy 05/19/20 Working Supervisor Relationship Specialty Start Date End Date Ivette Grimes MD [address] [place] [address] PCP - General Family Medicine 11/21/13 Jagdish Carballo, [facility] [address] [facility] [place] [address] Pharmacist Pharmacy 05/19/20 Working Supervisor Relationship Specialty Start Date End Date Ivette Grimes MD [address] [place] [address] PCP - General Family Medicine 11/21/13 [facility] [address] [place] [address] Pharmacist Pharmacy 05/19/20 Working Supervisor Relationship Specialty Start Date End Date Ivette Grimes MD [address] [place] [address] PCP - General Family Medicine 11/21/13 Martinhenry Jagdish, [facility] [address] [place] [address] Pharmacist Pharmacy 05/19/20 Working Supervisor Relationship Specialty Start Date End Date Ivette Grimes MD [address] [place] [address] PCP - General Family Medicine 11/21/13 Jagdish Carballo, [facility] [address] [place] [address] Pharmacist Pharmacy 05/19/20 Working Supervisor Relationship Specialty Start Date End Date Ivette Grimes MD [address] [place] [address] PCP - General Family Medicine 11/21/13 [facility] [address] [place] [address] Pharmacist Pharmacy 05/19/20 Working Supervisor Relationship Specialty Start Date End Date Ivette Grimes MD [address] [place] [address] PCP - General Family Medicine 11/21/13 [facility] [address] [place] [address] Pharmacist Pharmacy 05/19/20 Working Supervisor Relationship Specialty Start Date End Date Ivette Grimes MD [address] [place] [address] PCP - General Family Medicine 11/21/13 [facility] [address] [place] [address] Pharmacist Pharmacy 05/19/20 Working Supervisor Relationship Specialty Start Date End Date Ivette Grimes MD [address] [place] [address] PCP - General Family Medicine 11/21/13 [facility] [address] [place] [address] Pharmacist Pharmacy 05/19/20 Working Supervisor Relationship Specialty Start Date End Date Ivette Grimes MD [address] [place] [address] PCP - General Family Medicine 11/21/13 [facility] [address] [place] [address] Pharmacist Pharmacy 05/19/20 Jemal Orozco MD [address] [place] [address] Cardiology 10/31/22 Working Supervisor Relationship Specialty Start Date End Date Ivette Grimes MD [address] [place] [address] PCP - General Family Medicine 11/21/13 [facility] [address] [place] [address] Pharmacist Pharmacy 05/19/20 Jemal Orozco MD [address] [place] [address] Cardiology 10/31/22 Working Supervisor Relationship Specialty Start Date End Date Ivette Grimes MD [address] [place] [address] PCP - General Family Medicine 11/21/13 [facility] [address] [place] [address] Pharmacist Pharmacy 05/19/20 Jemal Orozco MD [address] [place] [address] Cardiology 10/31/22 Working Supervisor Relationship Specialty Start Date End Date Ivette Grimes MD [address] [place] [address] PCP - General Family Medicine 11/21/13 [facility] [address] [place] [address] Pharmacist Pharmacy 05/19/20 Jemal Orozco MD [address] [place] [address] Cardiology 10/31/22 Team Status: Active Member Role Status Dates Dr. Ivette Grimes MD Family Provider Active Dr. Ivette Griems MD Primary Care Provider [...] Dr. Tod Callejas MD Emergency Provider Active Working Supervisor Relationship Specialty Start Date End Date Ivette Grimes MD [address] [place] [address] PCP - General Family Medicine 11/21/13 Jagdish Carballo RPh [address] [place], [place] [address] Pharmacist Pharmacy 05/19/20 Jemal Orozco MD [address] [place] [address] Cardiology 10/31/22 Working Supervisor Relationship Specialty Start Date End Date Ivette Grimes MD [address] [place] [address] PCP - General Family Medicine 11/21/13 [facility] [address] [place] [address] Pharmacist Pharmacy 05/19/20 Jemal Orozco MD [address] [place], [place] [id number] Cardiology 10/31/22 Working Supervisor Relationship Specialty Start Date End Date Ivette Grimes MD [address] [place] [address] PCP - General Family Medicine 11/21/13 [facility] [address] [place] [address] Pharmacist Pharmacy 05/19/20 Jemal Orozco MD [address] [place] [address] Cardiology 10/31/22 Working Supervisor Relationship Specialty Start Date End Date Ivette Grimes MD [address] [place] [address] PCP - General Family Medicine 11/21/13 [facility] [address] [place] [address] Pharmacist Pharmacy 05/19/20 Jemal Orozco MD [address] [place] [address] Cardiology 10/31/22 Working Supervisor Relationship Specialty Start Date End Date Ivette Grimes MD [address] [place] [address] PCP - General Family Medicine 11/21/13 Jagdish Carballo, [facility] [address] [place] [address] Pharmacist Pharmacy 05/19/20 Jemal Orozco MD [address] [place] [address] Cardiology 10/31/22 Working Supervisor Relationship Specialty Start Date End Date Ivette Grimes MD [address] [place] [address] PCP - General Family Medicine 11/21/13 [facility] [address] [place] [address] Pharmacist Pharmacy 05/19/20 Jemal Orozco MD [address] [place] [address] Cardiology 10/31/22 Working Supervisor Relationship Specialty Start Date End Date Ivette Grimes MD [address] [place] [address] PCP - General Family Medicine 11/21/13 [facility] [address] [place] [address] Pharmacist Pharmacy 05/19/20 Jemal Orozco MD [address] [place] [address] Cardiology 10/31/22 Working Supervisor Relationship Specialty Start Date End Date Ivette Grimes MD [address] [place] [address] PCP - General Family Medicine 11/21/13 Jagdish Carballo, [facility] [address] [place] [address] Pharmacist Pharmacy 05/19/20 Jemal Orozco MD [address] [place] [address] Cardiology 10/31/22 Working Supervisor Relationship Specialty Start Date End Date Ivette Grimes MD [address] [place] [address] PCP - General Family Medicine 11/21/13 [facility] [address] [place] [address] Pharmacist Pharmacy 05/19/20 Jemal Orozco MD [address] [place] [address] Cardiology 10/31/22 Working Supervisor Relationship Specialty Start Date End Date Ivette Grimes MD [address] [place] [address] PCP - General Family Medicine 11/21/13 [facility] [address] [place] [address] Pharmacist Pharmacy 05/19/20 Jemal Orozco MD [address] [place] [address] Cardiology 10/31/22 Working Supervisor Relationship Specialty Start Date End Date Ivette Grimes MD [address] [place] [address] PCP - General Family Medicine 11/21/13 [facility] [address] [place] [address] Pharmacist Pharmacy 05/19/20 Jemal Orozco MD [address] [place] [address] Cardiology 10/31/22 Team Status: Inactive Member Role Status Dates Dr. Ivette Grimes MD Primary Care Provider, Referring Provider Active Dr. Vin Montes MD Attending Provider Active Team Status: Inactive Member Role Status Dates Dr. Ivette Grimes MD Primary Care Provider, Referring Provider Active Jesenia Mercado REVIEW ASSISTANT, REVIEW ASSISTANT-C Attending Provider Active Team Status: Inactive Member [...] Pearl MD Attending Provider, Emergency Provider Active Working Supervisor Relationship Specialty Start Date End Date Ivette Grimes MD [address] [place] [address] PCP - General Family Medicine 11/21/13 [facility] [address] [place] [address] Pharmacist Pharmacy 05/19/20 Jemal Orozco MD [address] [place], [place] [id number] Cardiology 10/31/22 Working Supervisor Relationship Specialty Start Date End Date Ivette Grimes MD [address] [place] [address] PCP - General Family Medicine 11/21/13 [facility] [address] [place] [address] Pharmacist Pharmacy 05/19/20 Jemal Orozco MD [address] [place] [address] Cardiology 10/31/22 Working Supervisor Relationship Specialty Start Date End Date Ivette Grimes MD [address] [place] [address] PCP - General Family Medicine 11/21/13 [facility] [address] [place] [address] Pharmacist Pharmacy 05/19/20 Jemal Orozco MD [address] [place], [place] [id number] Cardiology 10/31/22 Working Supervisor Relationship Specialty Start Date End Date Ivette Grimes MD [address] [place] [address] PCP - General Family Medicine 11/21/13 [facility] [address] [place] [address] Pharmacist Pharmacy 05/19/20 Jemal Orozco MD [address] [place] [address] Cardiology 10/31/22 Team Status: Active Member Role Status Dates Dr. Ivette Grimes MD Primary Care Provider Active Adelina Marinelli REVIEW ASSISTANT, REVIEW ASSISTANT-C Attending Provider, Willian alvarez Provider Active Working Supervisor Relationship Specialty Start Date End Date Ivette Grimes MD [address] [place] [address] PCP - General Family Medicine 11/21/13 [facility] [address] [place] [address] Pharmacist Pharmacy 05/19/20 Jemal Orozco MD [address] [place] [address] Cardiology 10/31/22 Working Supervisor Relationship Specialty Start Date End Date Ivette Grimes MD [address] [place] [address] PCP - General Family Medicine 11/21/13 [facility] [address] [place] [address] Pharmacist Pharmacy 05/19/20 Jemal Orozco MD [address] [place] [address] Cardiology 10/31/22 Working Supervisor Relationship Specialty Start Date End Date Ivette Grimes MD [address] [place] [address] PCP - General Family Medicine 11/21/13 [facility] [address] [place] [address] Pharmacist Pharmacy 05/19/20 Jemal Orozco MD [address] [place] [address] Cardiology 10/31/22 Working Supervisor Relationship Specialty Start Date End Date Ivette Grimes MD [address] [place] [address] PCP - General Family Medicine 11/21/13 [facility] [address] [place] [address] Pharmacist Pharmacy 05/19/20 Jemal Orozco MD [address] [place] [address] Cardiology 10/31/22 Working Supervisor Relationship Specialty Start Date End Date Ivette Grimes MD [address] [place] [address] PCP - General Family Medicine 11/21/13 [facility] [address] [place] [address] Pharmacist Pharmacy 05/19/20 Jemal Orozco MD [address] [place], [place] [id number] Cardiology 10/31/22 Working Supervisor Relationship Specialty Start Date End Date Ivette Grimes MD [address] [place], [place] [address] PCP - General Family Medicine 11/21/13 [facility] [address] [place] [address] Pharmacist Pharmacy 05/19/20 Jemal Orozco MD [address] [place] [address] Cardiology 10/31/22 Team Status: Inactive Member Role Status Dates Dr. Ivette Grimes MD Primary Care Provider Active TETO MARY Attending Provider, Referring Pro vider Active Team Status: Inactive Member Role Status Dates Dr. Ivette Grimes MD Primary Care Provider Active Dr. Sam Pearl MD Emergency Provider Active Working Supervisor Relationship Specialty Start Date End Date Ivette Grimes MD [address] [place], [place] [address] PCP - General Family Medicine 11/21/13 [facility] [address] [place] [address] Pharmacist Pharmacy 05/19/20 Jemal Orozco MD [address] [place], [place] [id number] Cardiology 10/31/22 Working Supervisor Relationship Specialty Start Date End Date Ivette Grimes MD [address] [place] [address] PCP - General Family Medicine 11/21/13 Jagdish Carballo, [facility] [address] [place] [address] Pharmacist Pharmacy 05/19/20 Jemal Orozco MD [address] [place], [place] [id number] Cardiology 10/31/22 Working Supervisor Relationship Specialty Start Date End Date Ivette Grimes MD [address] [place] [address] PCP - General Family Medicine 11/21/13 [facility] [address] [place] [address] Pharmacist Pharmacy 05/19/20 Jemal Orozco MD [address] [place], [place] [id number] Cardiology 10/31/22 Working Supervisor Relationship Specialty Start Date End Date Ivette Grimes MD [address] [place] [address] PCP - General Family Medicine 11/21/13 [facility] [address] [place] [address] Pharmacist Pharmacy 05/19/20 Jemal Orozco MD [address] [place] [address] Cardiology 10/31/22 Working Supervisor Relationship Specialty Start Date End Date Ivette Grimes MD [address] [place] [address] PCP - General Family Medicine 11/21/13 [facility] [address] [place] [address] Pharmacist Pharmacy 05/19/20 Jemal Orozco MD [address], [place] [phone] Cardiology 10/31/22 Working Supervisor Relationship Specialty Start Date End Date Ivette Grimes MD [address] [place] [address] PCP - General Family Medicine 11/21/13 [facility] [address] [place] [address] Pharmacist Pharmacy 05/19/20 Jemal Orozco MD [address], [place] [phone] Cardiology 10/31/22 Working Supervisor Relationship Specialty Start Date End Date Ivette Grimes MD [address] [place] [address] PCP - General Family Medicine 11/21/13 [facility] [address] [place] [address] Pharmacist Pharmacy 05/19/20 Jemal Orozco MD [address] [place], [place] [phone] Cardiology 10/31/22 Team Status: Active Member Role Status Dates Dr. Ivette Grimes MD Family Provider Active Team Status: Inactive Member Role Status Dates Dr. Bibiana Rehman DC Attending Provider Active Team Status: Inactive Member Role Status Dates Dr. Ivette Grimes MD Primary Care Provider Active Adelina Marinelli REVIEW ASSISTANT, REVIEW ASSISTANT-C Attending Provider, Referrin g Provider Active Team [...] MD Admit Provider, Attending Prov ider Active Working Supervisor Relationship Specialty Start Date End Date Ivette Grimes MD [address] [place] [address] PCP - General Family Medicine 11/21/13 [facility] [address] [place] [address] Pharmacist Pharmacy 05/19/20 Jemal Orozco MD [address] [place], [place] [phone] Cardiology 10/31/22 Working Supervisor Relationship Specialty Start Date End Date Ivette Grimes MD [address] [place] [address] PCP - General Family Medicine 11/21/13 [facility] [address] [place] [address] Pharmacist Pharmacy 05/19/20 Jemal Orozco MD [address] [place] [address] Cardiology 10/31/22 Working Supervisor Relationship Specialty Start Date End Date Ivette Grimes MD [address] [place] [address] PCP - General Family Medicine 11/21/13 [facility] [address] [place] [address] Pharmacist Pharmacy 05/19/20 Jemal Orozco MD [address] [place] [address] Cardiology 10/31/22 Working Supervisor Relationship Specialty Start Date End Date Ivette Grimes MD [address] [place], [place] 128871 PCP - General Family Medicine 11/21/13 [facility] [address] [place], [place] 334441 Pharmacist Pharmacy 05/19/20 Jemal Orozco MD [address] [place] [address] Cardiology 10/31/22 Team Status: Inactive Member Role [...] MD Admit Provider, Attending Prov ider Active Working Supervisor Relationship Specialty Start Date End Date Ivette Grimes MD [address] [place], [place] 609741 PCP - General Family Medicine 11/21/13 [facility] [address] [place], [place] 072631 Pharmacist Pharmacy 05/19/20 Jemal Orozco MD [address] [place], [place] [phone] Cardiology 10/31/22 Working Supervisor Relationship Specialty Start Date End Date Ivette Grimes MD [address] [place] [address] PCP - General Family Medicine 11/21/13 [facility] [address] [place] [address] Pharmacist Pharmacy 05/19/20 Jemal Orozco MD [address] [place], [place] [phone] Cardiology 10/31/22 Working Supervisor Relationship Specialty Start Date End Date Ivette Grimes MD [address] [place] [address] PCP - General Family Medicine 11/21/13 [facility] [address] [place] [address] Pharmacist Pharmacy 05/19/20 Jemal Orozco MD [address] [place] [address] Cardiology 10/31/22 Team Status: Inactive Member Role Status Dates Dr. Ivette Grimes MD Primary Care Provider Active Dr. Luan Zepeda DO Emergency Provider Active Working Supervisor Relationship Specialty Start Date End Date Ivette Grimes MD [address] [place] [address] PCP - General Family Medicine 11/21/13 [facility] [address] [place] [address] Pharmacist Pharmacy 05/19/20 Jemal Orozco MD [address] [place], [place] [phone] Cardiology 10/31/22 Working Supervisor Relationship Specialty Start Date End Date Ivette Grimes MD [address] [place] [address] PCP - General Family Medicine 11/21/13 [facility] [address] [place] [address] Pharmacist Pharmacy 05/19/20 Jemal Orozco MD [address] [place], [place] [phone] Cardiology 10/31/22 Working Supervisor Relationship Specialty Start Date End Date Ivette Grimes MD [address] [place] [address] PCP - General Family Medicine 11/21/13 [facility] [address] [place] [address] Pharmacist Pharmacy 05/19/20 Jemal Orozco MD [address] [place], [place] [phone] Cardiology 10/31/22 Team Status: Inactive Member Role Status Dates Dr. Ivette Grimes MD Primary Care Provider Active Dr. Luan Zepeda DO Attending Provider, Roxane go Active Working Supervisor Relationship Specialty Start Date End Date Ivette Grimes MD [address] [place] [address] PCP - General Family Medicine 11/21/13 Jemal Orozco MD [address] [place], [place] [phone] Cardiology 10/31/22 Working Supervisor Relationship Specialty Start Date End Date Ivette Grimes MD [address] [place], [place] 544681 PCP - General Family Medicine 11/21/13 Jemal Orozco MD [address] [place] [address] Cardiology 10/31/22 Working Supervisor Relationship Specialty Start Date End Date Ivette Grimes MD [address] [place] [address] PCP - General Family Medicine 11/21/13 Jemal Orozco MD [address] [place] [phone] Cardiology 10/31/22 Working Supervisor Relationship Specialty Start Date End Date Ivette Grimes MD [address] [place], [place] 152661 PCP - General Family Medicine 11/21/13 Jemal Orozco MD [address] [place], [place] 2586395 Cardiology 10/31/22 Working Supervisor Relationship Specialty Start Date End Date Ivette Grimes MD [address] [place] [address] PCP - General Family Medicine 11/21/13 Jemal Orozco MD [address] [place] [address] Cardiology 10/31/22 Working Supervisor Relationship Specialty Start Date End Date Ivette Grimes MD [address] [place] [address] PCP - General Family Medicine 11/21/13 Jemal Orozco MD [address] [place] [address] Cardiology 10/31/22 Working Supervisor Relationship Specialty Start Date End Date Ivette Grimes MD [address] [place], [place] 366021 PCP - General Family Medicine 11/21/13 Jemal Orozco MD [address] [place] [address] Cardiology 10/31/22 Working Supervisor Relationship Specialty Start Date End Date Ivette Grimes MD [address] [place] [address] PCP - General Family Medicine 11/21/13 Jemal Orozco MD [address] [place] [address] Cardiology 10/31/22 Working Supervisor Relationship Specialty Start Date End Date Ivette Grimes MD [address] [place], [place] 922811 PCP - General Family Medicine 11/21/13 Jemal Orozco MD [address] [place], [place] 7192195 Cardiology 10/31/22 Working Supervisor Relationship Specialty Start Date End Date Ivette Grimes MD [address] [place], [place] 443111 PCP - General Family Medicine 11/21/13 Jemal Orozco MD [address], [place] 9084795 Cardiology 10/31/22 Working Supervisor Relationship Specialty Start Date End Date Ivette Grimes MD [address] [place], [place] 368541 PCP - General Family Medicine 11/21/13 Jemal Orozco MD [address] [place], [place] 6734395 Cardiology 10/31/22 Working Supervisor Relationship Specialty Start Date End Date Ivette Grimes MD [address] [place] [address] PCP - General Family Medicine 11/21/13 Jemal Orozco MD [address] [place], [place] 9065395 Cardiology 10/31/22 Working Supervisor Relationship Specialty Start Date End Date Ivette Grimes MD [address] [place] [address] PCP - General Family Medicine 11/21/13 Jemal Orozco MD [address] [place], [place] 9260095 Cardiology 10/31/22 Working Supervisor Relationship Specialty Start Date End Date Ivette Grimes MD [address] [place], [place] 167241 PCP - General Family Medicine 11/21/13 Jemal Orozco MD [address] [place], [place] 8705095 Cardiology 10/31/22 Working Supervisor Relationship Specialty Start Date End Date Ivette Grimes MD [address] [place], [place] 920681 PCP - General Family Medicine 11/21/13 Jagdish Carballo [facility] [address] [place], [place] 379371 Pharmacist Pharmacy 05/19/20 12/25/23 Jemal Orozco MD [address] [place], [place] 0813595 Cardiology 10/31/22 Working Supervisor Relationship Specialty Start Date End Date Ivette Grimes MD [address] [place], [place] 529111 PCP - General Family Medicine 11/21/13 Jemal Orozco MD [address] [place], [place] 1691395 Cardiology 10/31/22 Working Supervisor Relationship Specialty Start Date End Date Ivette Grimes MD [address] [place], [place] 777511 PCP - General Family Medicine 11/21/13 Jemal Orozco MD [address] [place] [address] Cardiology 10/31/22 Working Supervisor Relationship Specialty Start Date End Date Ivette Grimes MD [address] [place], [place] 511031 PCP - General Family Medicine 11/21/13 Jemal Orozco MD [address] [place], [place] 2086195 Cardiology 10/31/22 Working Supervisor Relationship Specialty Start Date End Date Ivette Grimes MD [address] [place], [place] 754601 PCP - General Family Medicine 11/21/13 Jemal Orozco MD [address] [place], [place] 2237395 Cardiology 10/31/22 Working Supervisor Relationship Specialty Start Date End Date vIette Grimes MD [address] [place], [place] 538191 PCP - General Family Medicine 11/21/13 Jemal Orozco MD [address] [place] [address] Cardiology 10/31/22 Cindy Edouard, THOM.CHEMISTRY LECTURER [address] [place] [address] Drug Coordinator Family Medicine 10/12/24 Lubna De La Garza APRN.CHEMISTRY LECTURER [address] [place] [address] Drug Coordinator Family Medicine 10/12/24 Working Supervisor Relationship Specialty Start Date End Date Ivette Grimes MD [address] [place] [address] PCP - General Family Medicine 11/21/13 Jemal Orozco MD [address] [place], [place] 82500[address] Cardiology 10/31/22 Cindy Edouard, LIBRARY CLERK TALKING BOOKS.CHEMISTRY LECTURER [address] [place] [address] Drug Coordinator Family Medicine 10/12/24 Lubna De La Garza LIBRARY CLERK TALKING BOOKS.CHEMISTRY LECTURER [address] [place] [address] Drug Coordinator [facility] Medicine 10/12/24 Working Supervisor Relationship Specialty Start Date End Date Ivette Grimes MD [address] [place] [address] PCP - General Family Medicine 11/21/13 Jemal Orozco MD [address] [place] [address] Cardiology 10/31/22 Cindy Edouard, LIBRARY CLERK TALKING BOOKS.CHEMISTRY LECTURER [address] [place] [address] Drug Coordinator Family Medicine 10/12/24 Lubna De La Garza, LIBRARY CLERK TALKING BOOKS.CHEMISTRY LECTURER [address] [place] [address] Drug Coordinator Family Medicine 10/12/24 Working Supervisor Relationship Specialty Start Date End Date Ivette Grimes MD [address] [place] [address] PCP - General Family Medicine 11/21/13 Jemal Orozco MD [address] [place] 4978[address] Cardiology 10/31/22 Cindy Edouard, LIBRARY CLERK TALKING BOOKS.CHEMISTRY LECTURER [address] [place] [address] Drug Coordinator Family Medicine 10/12/24 Lubna De La Garza LIBRARY CLERK TALKING BOOKS.CHEMISTRY LECTURER [address] [place] [address] Drug Coordinator Family Medicine 10/12/24 Working Supervisor Relationship Specialty Start Date End Date Ivette Grimes MD [address] [place], [place] 729931 PCP - General Family Medicine 11/21/13 Jemal Orozco MD [address] [place], [place] 5745095 Cardiology 10/31/22 Cindy Edouard, LIBRARY CLERK TALKING BOOKS.CHEMISTRY LECTURER [address] [place] [address] Drug Coordinator Family Medicine 10/12/24 Lubna De La Garza, LIBRARY CLERK TALKING BOOKS.CHEMISTRY LECTURER [address] [place] [address] Drug Coordinator Family Medicine 10/12/24 Working Supervisor Relationship Specialty Start Date End Date Ivette Grimes MD [address] [place] [address] PCP - General Family Medicine 11/21/13 Jemal Orozco MD [address] [place], [place] [phone] Cardiology 10/31/22 Cindy Edouard APRN.CHEMISTRY LECTURER [address] [place] [address] [facility] 10/12/24 Lubna De La Garza LIBRARY CLERK TALKING BOOKS.CHEMISTRY LECTURER [address] [place] [address] [facility] 10/12/24 Working Supervisor Relationship Specialty Start Date End Date Ivette Grimes MD [address] [place], [place] 531901 PCP - General Family Medicine 11/21/13 Jemal Orozco MD [address] [place], [place] 0291295 Cardiology 10/31/22 Cindy Edouard LIBRARY CLERK TALKING BOOKS.CHEMISTRY LECTURER [address] [place] [address] [facility] 10/12/24 Lubna De La Garza APRN.CHEMISTRY LECTURER [address] [place] [address] [facility] 10/12/24 Working Supervisor Relationship Specialty Start Date End Date Ivette Grimes MD [address] [place] [address] PCP - General Family Medicine 11/21/13 Jemal Orozco MD [address] [place] [place], [place] 6937[address] Cardiology 10/31/22 Cindy Edouard APRN.CHEMISTRY LECTURER [address] [place] [address] [facility] 10/12/24 Lubna De La Garza APRN.CHEMISTRY LECTURER [address] [place] [address] [facility] 10/12/24 Working Supervisor Relationship Specialty Start Date End Date Ivette Grimes MD [address] [place] [address] PCP - General Family Medicine 11/21/13 Jemal Orozco MD [address] [place], [place] 8992095 Cardiology 10/31/22 Cindy Edouard LIBRARY CLERK TALKING BOOKS.CHEMISTRY LECTURER [address] [place] [address] [facility] 10/12/24 Lubna De La Garza LIBRARY CLERK TALKING BOOKS.CHEMISTRY LECTURER [address] [place] [address] [facility] 10/12/24 Working Supervisor Relationship Specialty Start Date End Date Ivette Grimes MD [address] [place] [address] PCP - General Family Medicine 11/21/13 Jemal Orozco MD [address] [place], [place] [phone] Cardiology 10/31/22 Cindy Edouard LIBRARY CLERK TALKING BOOKS.CHEMISTRY LECTURER [address] [place] [address] [facility] 10/12/24 Lubna De La Garza APRN.CHEMISTRY LECTURER [address] [place] [address] [facility] 10/12/24 Working Supervisor Relationship Specialty Start Date End Date Ivette Grimes MD [address] [place] [address] PCP - General Family Medicine 11/21/13 Jemal Orozco MD [address] [place] [address] Cardiology 10/31/22 Cindy Edouard APRN.CHEMISTRY LECTURER [address] [place] [address] [facility] 10/12/24 Lubna De La Garza LIBRARY CLERK TALKING BOOKS.CHEMISTRY LECTURER [address] [place] [address] [facility] 10/12/24 Working Supervisor Relationship Specialty Start Date End Date Ivette Grimes MD [address] [place] [address] PCP - General Family Medicine 11/21/13 Jemal Orozco MD [address] [place], [place] 9754[address] Cardiology 10/31/22 Cindy Edouard APRN.CHEMISTRY LECTURER [address] [place] [address] [facility] 10/12/24 Lubna De La Garza APRN.CHEMISTRY LECTURER [address] [place] [address] Drug Coordinator Family Medicine 10/12/24 Team Status: Active Member [...] January 28, 2025 End: January 28, 2025 Working Supervisor Relationship Specialty Start Date End Date Ivette Grimes MD [address] [facility], [place] [address] PCP - General Family Medicine 11/21/13 Jemal Orozco MD [address] [place], [place] 5644[address] Cardiology 10/31/22 Cindy Edouard APRN.CHEMISTRY LECTURER [address] [place] [address] Drug Coordinator Family Medicine 10/12/24 Lubna De La Garza APRN.CHEMISTRY LECTURER [address] [place] [address] [facility] 10/12/24 Working Supervisor Relationship Specialty Start Date End Date Ivette Grimes MD [address] [place] [address] PCP - General Family Medicine 11/21/13 Jemal Orozco MD [address] [place], [place] 44316[address] Cardiology 10/31/22 Cindy Edouard LIBRARY CLERK TALKING BOOKS.CHEMISTRY LECTURER [address] [place] [address] Drug Coordinator [facility] Medicine 10/12/24 Lubna De La Garza LIBRARY CLERK TALKING BOOKS.CHEMISTRY LECTURER [address] [place] [address] [facility] 10/12/24 Team Status: Inactive Member Role Status [...] March 22, 2025 End: March 22, 2025 Working Supervisor Relationship Specialty Start Date End Date Ivette Grimes MD [address] [place] [address] PCP - General Family Medicine 11/21/13 Jemal Orozco MD [address] [place], [place] [address]26[address] Cardiology 10/31/22 Cindy Edouard, LIBRARY CLERK TALKING BOOKS.CHEMISTRY LECTURER [address] [place], [place] [address]25[address] [facility] 10/12/24 Lubna De La Garza LIBRARY CLERK TALKING BOOKS.CHEMISTRY LECTURER [address] [place], [place] [address]75[address] [facility] 10/12/24 Team Status: Inactive Member Role Status Dates Dr. Ivette Grimes MD Primary Care Provider Active Start: April 05, 2025 End: April 05, 2025 Dr. Ivette Grimes MD Referring Provider Active Start: April 05, 2025 End: April 05, 2025 Dr. Bibiana Rehman , CONCEPCIÓN Attending Provider Active S tart: April 05, 2025 End: April 05, 2025 Working Supervisor Relationship Specialty Start Date End Date Ivette Grimes MD [address] [place], [place] 401611 PCP - General Family Medicine 11/21/13 Jemal Orozco MD [address] [place], [place] 39298[address] Cardiology 10/31/22 Cindy Edouard, LIBRARY CLERK TALKING BOOKS.CHEMISTRY LECTURER [address] [facility] [place], [place] [address] [facility] 10/12/24 Lubna De La Garza LIBRARY CLERK TALKING BOOKS.CHEMISTRY LECTURER [address] [place] [address] [facility] 12/9/24 Team Status: Active Member Role Status Dates [...] Status: Inactive Member Role/Relationship Status Dates Dr. Ivtete Grimes MD Primary Care Provider Active Start: [...] June 01, 2025 End: June 01, 2025 Working Supervisor Relationship Specialty Start Date End Date Ivette Grimes MD [address] [place], [place] [address] PCP - General Family Medicine 11/21/13 Jemal Orozco MD [address] [place] [address] Cardiology 10/31/22 Cindy Edouard, THOM.CHEMISTRY LECTURER [address] [place], [place] [address]24371 Drug Coordinator Family Medicine 10/12/24 Lubna De La Garza, LIBRARY CLERK TALKING BOOKS.CHEMISTRY LECTURER [address] [place], [place] [address]31 Drug Coordinator Family Medicine 10/12/24 Team Status: Inactive Member [...] Active Start: June 10, 2025 Dr. Vin Monets MD Attending Provider Active S tart: June 10, 2025 Brett Quiroga MD Referring Provider Active St art: June 10, 2025 Team Status: Inactive Member Role/Relationship Status Dates Dr. Ivette Grimes MD Primary Care Provider Active Start: June 17, 2025 End: June 17, 2025 Dr. Ivette Grimes MD Referring Provider Active Start: June 17, 2025 End: June 17, 2025 Dr. Bibiana Rehman , CONCEPCIÓN Attending Provider Active S tart: June 17, [...] June 09, 2025 End: June 09, 2025 Working Supervisor Relationship Specialty Start Date End Date Ivette Grimes MD [address] [place], [place] [address] PCP - General Family Medicine 11/21/13 Jemal Orozco MD [address] [place] [address] Cardiology 10/31/22 Cindy Edouard, LIBRARY CLERK TALKING BOOKS.CHEMISTRY LECTURER [address] [place], [place] [address] Drug Coordinator Family Medicine 10/12/24 Lubna De La Garza LIBRARY CLERK TALKING BOOKS.CHEMISTRY LECTURER [address] [place], [place] 495561 Drug Coordinator Family Medicine 10/12/24 Team Status: Inactive Member [...] t: July 05, 2025 Dr. Alfonzo Vicente , Other Provider Active St art: July 05, 2025 Dr. Dave Chino MD Other Provider Active Start: July 05, 2025 Dr. Sabine [place] MD Other Provider Active St art: July 05, 2025 Dr. Vincent Drew , Other Provider Active Start: July 05, 2025 Dr. Quinton Glez MD Other Provider Active Star t: July 05, 2025 Dr. Chicho Chou MD Other Provider Active Start: July 05, 2025 Dr. Ivette Jackson MD Other Provider Active Sta rt: July 05, 2025 Working Supervisor Relationship Specialty Start Date End Date Ivette Grimes MD [address] [place], [place] 000641 PCP - General Family Medicine 11/21/13 Jemal Orozco MD [address] [place] [address] Cardiology 10/31/22 Cindy Edouard APRN.CHEMISTRY LECTURER [address] [place], [place] 285[address] [facility] 10/12/24 Lubna De La Garza LIBRARY CLERK TALKING BOOKS.CHEMISTRY LECTURER [address] [place], [place] [address] [facility] 10/12/24 Team Status: Inactive Member Role/Relationship [...] Active Start: May 11, 2025 Dr. Ivette Grimse MD Referring Provider Active Start: May 11, 2025 Team Status: Inactive Member Role/Relationship Status Dates Dr. Ivetet Grimes MD Primary Care Provider Active Start: [...] Active Member Role/Relationship Status Dates Dr. Ivette rGimes MD Primary Care Provider Active Start: July [...] July 09, 2025 End: July 09, 2025 Working Supervisor Relationship Specialty Start Date End Date Ivette Grimes MD [address] [place], [place] [address]191 PCP - General Family Medicine 11/21/13 Jemal Orozco MD [address] [place], [place] 250[address] Cardiology 10/31/22 Cindy Edouard, LIBRARY CLERK TALKING BOOKS.CHEMISTRY LECTURER [address] [place], [place] [address] Drug Coordinator Family Medicine 10/12/24 Lubna De La Garza, LIBRARY CLERK TALKING BOOKS.CHEMISTRY LECTURER [address] [place] [address] Drug Coordinator Family Medicine 10/12/24 Working Supervisor Relationship Specialty Start Date End Date Ivette Grimes MD [address] [place], [place] 416871 PCP - General Family Medicine 11/21/13 Jemal Orozco MD [address] [place] [address] Cardiology 10/31/22 Cindy Edouard APRN.CHEMISTRY LECTURER [address] [place] [address] Drug Coordinator [facility] 10/12/24 Lubna De La Garza LIBRARY CLERK TALKING BOOKS.CHEMISTRY LECTURER [address] [place] [address] Drug Coordinator [facility] 10/12/24 Team Status: Active Member Role/Relationship Status [...] 2025 End: July 07, 2025 Dr. Abhi Pnia MD Emergency Department Physician Active Start: July [...] Start: July 06, 2025 Dr. Derik Stack DO Nurse Practitioner Active S tart: July 06, [...] section and content) DATE CREATED AUTHOR 01/25/2023 [facility] DATE CREATED AUTHOR AUTHOR'S ORGANIZ ATION 09/10/2025 [facility] DATE CREATED AUTHOR AUTHOR'S ORGANIZ ATION 09/17/2025 [facility] Inactive Administered Medications - up to [...] Given 12/26/2023 10:11 AM EST 200 [address] er FOR RECORDS PERTAINING TO PATIENTS WHO [...] BE BASED ON THE PRIMARY CLINICAL RECORDS. [facility] [employer] [facility]. provides no warranty or guarantee of the accuracy or completeness of information in this document.
[2025-09-27 22:04] LABS: Red Blood Cells-Urine 5-10 SEEN /hpf (0-5)
[2025-09-27 22:06] LABS: Mucous, Urine 1+ /hpf (<or=2+)
[2025-09-27 22:07] LABS: Squamous Epithelial Cells - UA 5-10 SEEN /hpf (5-10)
[2025-09-27 22:10] LABS: AST(SGOT) 30 U/L (<=31); Alanine Aminotransfer ALT/SGPT 32 U/L (<=34); Albumin, Serum 4.0 g/dL (3.5-5.0); Alkaline Phosphatase 98 U/L (35-104); Anion Gap 14 (5-15); BUN 11 mg/dL (4-19); BUN/Creat Ratio 12.1 RATIO (10-20); Calcium,Total 8.9 mg/dL (7.6-11.0); Carbon Dioxide 19.5 mmol/L (21.0-32.0); Chloride 101 mmol/L (98-108); Estimated Creatinine Clearance 105.61 ml/min (50-250); Globulin 3.3 g/dL (2.2-4.2); Glucose 305 mg/dL (70-99); Potassium 4.2 mmol/L (3.3-5.1)
[2025-09-27 22:12] VITALS: BP 101/52; PULSE 66; RESP 18; TEMP 36.9; O2SAT 96
--- NOTE | 2025-09-27 22:53 | EDS_ITS ---
HPI History of Present Illness Chief Complaint: Flank Pain Detail of Chief Complaint: Acute left flank pain, altered mental status, frequency Informant: patient and family (Daughter states she was texting things that did not make sense like she did when she was admitted for sepsis) Onset/Context/Timing Onset: Today and Hours Context: Sudden Onset Timing: Continuous Quality: Left flank pain, confusion, chills, frequency and elevated blood sugar Location: Multiple organs Current Severity: Mild Maximum Severity: Moderate Worsened by: Presumed infection Relieved by: Nothing Associated Symptoms Associated Symptoms: Also complained of nausea Narrative Narrative: Patient is a 45-year-old female. She underwent recent laser lithotripsy of obstructing proximal/renal calculus on the left with placement of stent. This was performed by Dr. Saundra Christensen on September 16. Operative note was reviewed. Patient was in her normal state of health. She left work. She did not have any symptoms. She began texting her daughter. Daughter stated that she was texting things that did not make sense and could not follow what she was trying to tell her. She had a similar presentation was admitted for sepsis and DKA last month. Patient had complained of subjective fever. She denies headache. Denies double vision, blurred vision loss of vision. She has ringing or ears or decreased hearing. She denies sore throat. She does endorse mild shortness of breath. Denies cough. Denies chest discomfort. She reports left-sided abdominal pain and flank pain with frequency. She has not noted any hematuria. She is on Pyridium. She denies any PURCHASE ORDER CHECKER symptoms. She has not noted any rash. Prior similar symptoms: Yes Recent Illness/Hospitalization: Yes [facility] Medical History Insulin dependent diabetes mellitus Hypertension Depression Fatty liver Gastric reflux BiPAP (biphasic positive airway pressure) dependence Non-smoker History of stress test History of echocardiogram Cardiology follow-up encounter Microalbuminuria Fatty liver Anxiety Migraines Acute bronchitis Home Medications ?Medication ?Instructions ?Recorded ?Last Taken ?Type blood sugar diagnostic (Blood #10 ea 04/26/20 Unknown History Glucose Test strips) ipratropium bromide 21 mcg (0.03 2 spray intranasal BI D PRN 08/23/20 08/03/23 Hi story %) nasal spray allergies albuterol sulfate 90 mcg/actuation 2 puff inhalation Q 4H PRN 08/10/22 08/03/23 History aerosol inhaler shortness of breath or wheez ing fexofenadine 180 mg tablet 180 mg PO DAILY allergies 1 09/16/25 05:00 History (Allergy Relief (fexofenadine)) levonorgestrel 17.5 mcg/24 hr (up 1 device intrauterin e ONCE 08/10/22 06/23/25 History to 5 yrs) 19.5mg intrauterine control device tizanidine 4 mg tablet 4 mg PO Q8H PRN Muscle Spasm 08/10/22 06/20/25 History omeprazole 20 mg capsule,delayed 20 mg PO DAILY PRN ge rd 08/16/22 09/16/25 05:00 History release fluoxetine 20 mg capsule 20 mg PO QHS mental health 0 12/28/22 06/22/25 History gabapentin 300 mg capsule 300 mg PO QHS nerve pain 06/22/25 History lisinopril 10 mg tablet 10 mg PO DAILY blood pressur e 12/28/22 06/22/25 History rimegepant 75 mg disintegrating 75 mg PO DAILY PRN rosalina ray 02/04/24 11/10/24 History tablet (Nurtec ODT) headache semaglutide 2 mg/dose (8 mg/3 mL) 2 mg subcut TU 07/0509/07/25 History subcutaneous pen injector (Ozempic) BIPAP -Bilevel Positive Airway 07/06/25 Unknown Histo ry Pressure ([facility] USE ONLY) insulin glargine 100 unit/mL (3 10 unit (0.1 mL) subcu t QPM #15 mL 07/07/25 Unknown Rx mL) subcutaneous pen (Lantus Solostar U-100 Insulin) pen needle, diabetic 31 gauge x #100 ea 07/07/25 Unkno wn Rx topiramate 50 mg tablet 150 mg PO QHS 08/05/25 Unkno wn History ondansetron 4 mg disintegrating 4 mg PO Q8H PRN nausea and 09/16/25 Unknown Rx tablet vomiting #10 tabs oxycodone-acetaminophen 5 mg-325 1 tab PO Q8H PRN pain 3 days #10 09/16/25 Unknown Rx mg tablet tabs phenazopyridine 200 mg tablet 200 mg PO TID PRN pain # 30 tabs 09/16/25 Unknown Rx Allergy/AdvReac Type Severity Reaction Status Date / Time Corticosteroids Allergy Hives Verified 09/27/25 21:12 (Glucocorticoids) (steroids) lidocaine AdvReac Intermediate Hives Verified 09/27/25 21:12 Family History Father Diabetes Myocardial infarction Pancreatic cancer Mother Alcohol abuse Drug abuse Grandfather Diabetes Grandmother Lung cancer Grandmother Heart disease Triple bypass surgery Surgical History Hx of shoulder surgery History of urethral stent (~2018) Hx laparoscopic cholecystectomy (~2005) H/O: (~2005) Social History household members: none Smoking Status: Never smoker alcohol intake: never substance use type: does not use caffeine: Yes Type: coffee what type of physical activity do you participate in: walking frequency: daily seatbelt use: always do you feel safe at home: Yes ROS ROS ED Constitutional Constitutional ED: Reports fever(s) and subjective; Denies chills or sweats Eyes Eyes: Denies blurry vision or change in vision ENT ENT ED: Reports other Details: Endorses thirst and dry mouth ; Denies ear pain, rhinorrhea or sore throat Cardiovascular Cardiovascular: Denies chest pain, palpitations or racing heartbeat Respiratory/Chest Respiratory/Chest: Denies cough, dyspnea or dyspnea on exertion Gastrointestinal Gastrointestinal: Reports abdominal pain and nausea; Denies constipation, diarrhea, melena or vomiting Genitourinary Genitourinary ED: Reports urinary frequency; Denies dysuria or hematuria Musculoskeletal Musculoskeletal: Reports other Details: Left flank pain ; Denies arthralgias, back pain, myalgias or neck pain Integumentary Denies rash Neurologic Neurologic: Reports weakness; Denies headache(s) or paresthesias Endocrine Endocrinology: Denies cold intolerance or heat intolerance Hematologic/Lymphatic Hematologic/Lymphatic: Reports systems reviewed and no addt'l complaints, except as documented EXAM Physical Exam Const Vital Signs: 09/27/25 21:10 09/27/25 22:12 09/27/25 23:00 Temperature 97.9 F 98.4 F 97.8 F Temperature Source Oral Temporal Temporal Pulse Rate 80 66 101 H Respiratory Rate 16 18 18 Blood Pressure 116/71 101/52 L 101/52 L Blood Pressure Mean 86 68 68 Pulse Ox 98 96 97 Oxygen Delivery Method Room Air Room Air Room Air 09/27/25 23:05 Temperature 97.8 F Temperature Source Pulse Rate 63 Respiratory Rate 19 H Blood Pressure 101/52 L Blood Pressure Mean 68 Pulse Ox 98 Oxygen Delivery Method Positive well nourished and well developed Constitutional Narrative: Patient appears ill. She is flushed. She appears tanned as well. She does admit to going to tanning iyer. General Appearance ED: well developed HEENT Reports dry mucous membranes HEENT Narrative: Head is atraumatic and normocephalic. Ears normal. Nares patent. Posterior pharynx is normal. Mouth ED: Yes dry mucous membranes Mouth: dry mucous membranes Eyes PERRL and EOMs intact bilaterally General Eye ED: Negative for pale conjunctiva or scleral icterus Neck no lymphadenopathy, supple and no JVD Resp normal respiratory effort and clear to auscultation bilaterally Cardio regular rate, regular rhythm, S1 normal heart sound and S2 normal heart sound GI normal to inspection, nondistended, normoactive bowel sounds, non-distended and no masses; Negative for non-tender or hepatosplenomegaly GI Narrative: Exam is limited due to body habitus. She has pain outpatient on the left side to deep palpation only. There is some mild left flank pain. There is no left lower quadrant pain. There is no guarding or peritoneal findings. There is no obvious skin lesions noted. Back/Spine General Back: CVA tenderness left (Equivocal) Extremity normal to inspection General Extremety ED: Negative for edema or tenderness General Extremity: Negative for edema Neuro oriented x3 and CN's II-XII intact bilaterally Sensorium / Orientation: alert Psych mental status grossly normal Skin no rashes or lesions noted, no wounds and skin turgor normal Skin Narrative: She appears tanned. Her face is flushed. Sepsis Attestation Sepsis Alert: Yes Date exam was performed: 09/27/25 Time exam was performed: 21:35 Possible Source of Sepsis: Genitourinary Sepsis Organ Dysfunction Criteria Present: Lactic Acid > 2 mmol/L Fluid Resuscitation Fluid resuscitation indicated?: Yes Fluid Resuscitation ordered: Lesser volume fluid bolus ordered Amount of fluid ordered: 1,000 (Given for drop in blood pressure. She was not given a 30 cc/kg bolus since her blood pressure is greater than 90 and her mean arterial pressures greater than 65.) Reason for lesser fluid bolus:: Other (Patient does not have a blood pressure less than 90 and MAP is greater than 65) MDM MDM MDM Narrative Medical decision making narrative: Need to rule out urinary tract infection, complicated, pyelonephritis, abscess. With her being diabetic we will need to obtain appropriate electrolyte panel to assess glucose CO2 anion gap. Also need to evaluate for any endorgan dysfunction since there is concern that she may be septic with her altered mental status. Presently she is alert and orient x 3. She is awake but not alert. History & Record Review Additional record(s) reviewed:: Prior inpatient record, Prior outpatient record (Dr. Saundra Miller's operative report was reviewed.), Prior ED visit (She was seen by me July 05 for complicated urinary tract infection/sepsis with DKA. She was admitted to the ICU.) and Prior labs Lab Data Attestation: I reviewed the patient's lab results. Lab results narrative: White count elevated 12.2 thousand. There is no shift. H&H is unremarkable. Comprehensive metabolic panel is remarkable for a glucose of 305 with slightly decreased CO2 and normal anion gap. Lactate elevated 2.4. Liver enzymes are normal. Urine is consistent with infection. Labs: Laboratory Results - last 24 hr 09/27/25 09/27/25 21:24 21:26 WBC 12.2 H RBC 3.95 L Hgb 12.3 Hct 35.9 L MCV 90.9 MCH 31.1 MCHC 34.3 RDW Std Deviation 45.1 H RDW Coeff of Itzel 13.6 Plt Count 247 MPV 9.0 Immature Gran % (Auto) 1.700 H Neut % (Auto) 62.2 Lymph % (Auto) 29.4 [place] % (Auto) 4.0 Eos % (Auto) 2.0 Baso % (Auto) 0.7 Absolute Neuts (auto) 7.6 Absolute Lymphs (auto) 3.59 Nucleated RBC % 0 Sodium 135 Potassium 4.2 Chloride 101 Carbon Dioxide 19.5 L Anion Gap 14 BUN 11 Creatinine 0.95 Estim Creat Clear Calc 105.61 Est GFR (MDRD) Non-Af 77 BUN/Creatinine Ratio 12.1 Glucose 305 H Lactic Acid 2.4 H* Calcium 8.9 Total Bilirubin 0.39 AST 30 ALT 32 Alkaline Phosphatase 98 Total Protein 7.3 Albumin 4.0 Globulin 3.3 Albumin/Globulin Ratio 1.2 Urine Color Yellow Urine Clarity Cloudy Urine pH 6.5 Ur Specific [place] 1.020 Urine Protein 100 H Urine Glucose (UA) 100 H Urine Ketones Negative Urine Occult Blood 25 H Urine Nitrite Positive H Urine Bilirubin Negative Urine Urobilinogen 1 H Ur Leukocyte Esterase 500 H Urine RBC 5-10 SEEN Urine WBC 50-100 SEEN Ur Squamous Epith Cells 5-10 SEEN Amorphous Sediment 2+ Urine Bacteria 2+ Urine Mucus 1+ Blood culture and urine culture was obtained prior to initiation of treatment with cefepime. Radiography Diagnostic Testing: Clinical Impression(s) from Imaging Studies Abdomen/Pelvis CT 09/27/25 21:23 IMPRESSION: No acute intra-abdominal abnormality. Interval left nephroureteral stent placement with resolved left hydronephrosis. Previously seen stone at the left ureteropelvic junction no longer present. Additional punctate nonobstructive left renal stones are unchanged. Reading Location: [id number] Management Discussion w/another healthcare provider: Hospitalist (The night hospitalist was paged at [phone].) and Core Setter (Spoke with Dr. Saundra Miller. She requested for me to contact hospitalist for admission. She states from a urologic standpoint there is nothing further to do at this point.) Critical Care Time Critical Care Time: Yes Critical care time (excluding procedures): 30-74 minutes (34), Including time spent: (History, physical, documentation, and interpretation of laboratory results, review of prior records), Discussing w/Patient &/or Family/Label Printer (Discussion with patient, daughter and significant other), Discussing w/C onsultants (Dr. Saundra Christensen and hospitalist) and Arranging Admission or Transfer Discharge Plan Triage Chief Complaint: Flank Pain ED Provider: Abhi Pina Dx/Rx/DC Orders Clinical Impression: Complicated urinary tract infection, Acute alteration in mental status, Acidosis, lactic, Type 1 diabetes mellitus with hyperglycemia, Acute hypotension, Adult BMI 40.0-44.9 kg/sq m, LETITIA (obstructive sleep apnea) Prescriptions: No Action (DME) blood sugar diagnostic [Blood Glucose Test] Strip See Rx Instructions .ROUTE .MEDSUPPLY Qty: 10 Rx Instructions: As directed ipratropium bromide 0.03 % spray,non-aerosol 2 spray INTRANASAL BID PRN (Reason: allergies) Rx Instructions: administer into each nostril fexofenadine [Allergy Relief (fexofenadine)] 180 mg tablet 180 mg PO DAILY levonorgestrel 17.5 mcg/24 hrs (5 yrs) 19.5 mg intrauterine device 1 device intrauterine ONCE Rx Instructions: as a single dose omeprazole 20 mg capsule,delayed release(DR/EC) 20 mg PO DAILY PRN (Reason: gerd) Patient Comments: Take 1 capsule by mouthndaily before breakfast. 1/2 hr before meal. gabapentin 300 mg capsule 300 mg PO QHS lisinopril 10 mg tablet 10 mg PO DAILY Patient Comments: Take 1 tablet by mouthEonce daily. fluoxetine 20 mg capsule 20 mg PO QHS Patient Comments: Take 1 capsule by mouthConce daily. topiramate 50 mg tablet 150 mg PO QHS Rx Instructions: 3 50mg tablets at bedtime albuterol sulfate 90 mcg/actuation HFA aerosol inhaler 2 puff INHALATION Q4H PRN (Reason: shortness of breath or wheezing) tizanidine 4 mg tablet 4 mg PO Q8H PRN (Reason: Muscle Spasm) Ozempic 2 mg/dose (8 mg/3 mL) pen injector 2 mg subcut TU (DME) BIPAP -Bilevel Positive Airway Pressure ([facility] USE ONLY) Device See Rx Instructions .Route Patient Comments: VAuto: IPAP=19.2 EPAP=12.4 PS=6.8 Rx Instructions: As directed insulin glargine [Lantus Solostar U-100 Insulin] 100 unit/mL (3 mL) insulin pen 10 unit subcut QPM Qty: 15 0RF (DME) pen needle, diabetic 31 gauge x 5/32 needle See Rx Instructions .ROUTE .MEDSUPPLY Qty: 100 0RF Rx Instructions: As directed phenazopyridine 200 mg tablet 200 mg PO TID PRN (Reason: pain) Qty: 30 3RF oxycodone-acetaminophen 5-325 mg tablet 1 tab PO Q8H PRN (Reason: pain) 3 Days Qty: 10 0RF ondansetron 4 mg tablet,disintegrating 4 mg PO Q8H PRN (Reason: nausea and vomiting) Qty: 10 0RF Nurtec ODT 75 mg tablet,disintegrating 75 mg PO DAILY PRN (Reason: migraine headache) Primary Care Provider: Zeferino Leon Referrals: Zeferino Leon MD [Primary Care Provider, Medical] Print Language: Austrian
[2025-09-27] MEDS: Cefepime HCl 2 GM in 0.9% Normal Saline (100mL MB+) 100 ML IV (22:59)
[2025-09-27 23:00] VITALS: BP 101/52; PULSE 101; RESP 18; TEMP 36.6; O2SAT 97
[2025-09-27] MEDS: 0.9% Normal Saline (1000mL) 1,000 ML 1000 ML IV (23:04)
[2025-09-27 23:05] VITALS: BP 101/52; PULSE 63; RESP 19; TEMP 36.6; O2SAT 98
[2025-09-27 23:10] VITALS: PULSE 68; RESP 20; O2SAT 98
--- OUTSIDE RECORDS SUMMARY | 2025-09-27 23:32 | XMS RPT_ITS | CCD ---
Author Organization [facility] Care Team Providers Care Cafe Helper Name Role Phone Dossi Bibiana BEEBE Unavailable Roya Dixon Unavailable Roya Dixon Unavailable Amparo Hitchcock MD Unavailable [phone] Ivette Grimes MD Primary Care Provider [facility], Keti Unavailable Dr. Ivette Grimes Primary Care Provider Dr. Ivette Grimes Referring Provider Dr. Bibiana Rehman Attending Provider [phone] Dr. Munir Siddiqui Attending Provider Dr. Marin Villalpando Attending Provider [phone] Dr. Munir Lucas Attending Provider Dr. Sam Guadarrama Referring Provider Ivette Grimes MD Primary Care Provider [facility], Keti [facility]available [facility], [facility]eti Unavailable Dr. Ivette Grimes Primary Care Provider Dr. Ivette Grimes Referring Provider Dr. Bibiana Rehman Attending Provider [phone] Ivette Grimes MD Primary Care Provider Dr. Ivette Grimes Primary Care Provider Dr. Ivette Grimes Referring Provider Dossi, Dr. Mccarty Attending Provider [phone] Dr. Primo Ceron Attending Provider [place], Dr. Mcgarry Primary Care Provider Sydney, Dr. Mcgarry Referring Provider Dossi, Dr. Mccarty Attending Provider [phone] Cesar, Dr. Churchill Attending Provider [place], Dr. Mcgarry Primary Care Provider [place], Dr. Mcgarry Referring Provider Dossi, Dr. Mccarty Attending Provider [phone] Sydney, Dr. Mcgarry Primary Care Provider [place], Dr. Mcgarry Referring Provider Dossi, Dr. Mccarty Attending Provider [phone] Dr. Primo Ceron Attending Provider Cesar, Dr. Churchill Attending Provider [phone] [place] Ivette SHEARER Primary Care Provider [facility], Keti Unavailable [place], Dr. Mcgarry Primary Care Provider [place], Dr. Mcgarry Referring Provider Dossi, Dr. Mccarty Attending Provider [phone] Ernesto SHEARER, Jemal Unavailable [place], Dr. Mcgarry Primary Care Provider [place], Dr. Mcgarry Referring Provider Dossi, Dr. Mccarty Attending Provider [phone] [place], Dr. Mcgarry Primary Care Provider [place], Dr. Mcgarry Referring Provider Dossi, Dr. Mccarty Attending Provider [phone] Jess MECHANICAL DEVELOPMENT ENGINEER, FADUMO Ba Attending Provider Jyoti, Dr. Banuelos Attending Provider [phone] ELLE RASHEED Attending Unavailable SAM GUADARRAMA Referring Unavailable [facility], IVETTE James Primary Care Unavailable RASHEED, ELLE [...] Unavailable SYDNEY, IVETTE James Primary Care Unavailable [place], Dr. Mcgarry Primary Care Provider [place], Dr. Mcgarry Referring Provider Dossi, Dr. Mccarty Attending Provider [phone] [place], Dr. Mcgarry Primary Care Provider [place], Dr. Mcgarry Referring Provider Dossi, Dr. Mccarty Attending Provider [phone] Sydney, Dr. Mcgarry Primary Care Provider [place], Dr. Mcgarry Referring Provider Dossi, Dr. Mccarty Attending Provider [phone] [place], Dr. Mcgarry Primary Care Provider [place], Dr. Mcgarry Referring Provider Dossi, Dr. Mccarty Attending Provider [phone] [place], Dr. Mcgarry Primary Care Provider [place], Dr. Mcgarry Referring Provider Dossi, Dr. Mccarty Attending Provider [phone] Referred, Self Primary Care Provider Unavailabl e Referred, Self Referring Provider Unavailable [facility], Keti Unavailable Dosparam, Dr. Mccarty Attending Provider [phone] Referred, Self Primary Care Provider Unavailabl e Referred, Self Referring Provider Unavailable [place], Dr. Mcgarry Primary Care Provider Jyoti, Dr. [...] Provider Ivette Grimes MD Primary Care Provider [facility], Keti Unavailable Haagen FOSTER CARE THERAPIST.TERRITORY SALES PROFESSIONAL, Cindy Unavailable Suppan FOSTER CARE THERAPIST.TERRITORY SALES PROFESSIONAL, Lubna A Unavailable Suppan FOSTER CARE THERAPIST.TERRITORY SALES PROFESSIONAL, Lubna A Unavailable Suppan FOSTER CARE THERAPIST.TERRITORY SALES PROFESSIONAL, Lubna A Unavailable [phone] Dr. Ivette Grimes MD Primary Care Provider Dr. Sam Pearl MD Attending Provider Dr. Sam Pearl MD Emergency Provider Dr. Ivette Grimes MD Referring Provider Dossi CONCEPCIÓN, Dr. Mccarty Attending Provider Dr. Buddy Hall DO Attending Provider Dr. Buddy Hall DO Emergency Provider Tanya MECHANICAL DEVELOPMENT ENGINEER-CJenni Attending Provider Tanya MECHANICAL DEVELOPMENT ENGINEER-CJenni Referring Provider Dr. Ivette Grimes MD [...] Provider Jose SHEARER, Dr. Escobar Other Provider [phone] Yaneth SHEARER, Dr. Childress Other Provider Franko SHEARER, Dr. Bennett Other Provider [phone] Carlos A SHEARER, Dr. Khan Other Provider Ian SHEARER, Dr. Mcdermott Other Provider [phone] Nuno SHEARER, Dr. Pedersen Other Provider Franca SHEARER, Dr. Saldivar Other Provider Chhaya SHEARER, Dr. Jones Other Provider Unavailabl dinh Ko MD, Dr. Meza Other Provider [phone] Rebel SHEARER, Dr. August Other Provider Bin [...] Reji SHEARER, Dr. Shana Bianchi Other Provider [phone] Hunter SHEARER, Dr. Stephen Attending Provider Unavaila [...] Provider Lulú SHEARER, Dr. Acosta Other Provider [phone] Derek SHEARER, Dr. Regalado Other Provider Rajendra LEMUS, Dr. Kaur Other Provider Newton SHEARER, Dr. Alcantara Other Provider José Antonio SHEARER, Dr. Valentino Other Provider [phone] Manuel SHEARER, Dr. Mcgarry Other Provider [phone] Arleth SHEARER, Dr. Jose Juan Alvarado Attending [...] Yaneth SHEARER, Dr. Childress Nurse Practitioner [phone] Franko SHEARER, Dr. Bennett Nurse Practitioner Carlos A SHEARER, Dr. Khan Nurse Practitioner Ian SHEARER, Dr. Mcdermott Nurse Practitioner Nuno SHEARER, Dr. Pedersen Nurse Practitioner Franca SHEARER, Dr. Saldivar Nurse Practitioner [phone] Chhaya SHEARER, Dr. Jones Nurse Practitioner Unavail jamila Ko MD, Dr. Meza Nurse Practitioner [phone] Rebel SHEARER, Dr. August Nurse Practitioner Bin SHEARER, Dr. Live Nurse Practitioner Svetlana SHEARER, Dr. Ramirez Nurse Practitioner [phone] Jules LEMUS, Dr. Mejía Nurse Practitioner Lulú SHEARER, Dr. Acosta Nurse Practitioner [phone] Derek SHEARER, Dr. Regalado Nurse Practitioner Rajendra LEMUS, Dr. Kaur Nurse Practitioner Newton SHEARER, Dr. Alcantara Nurse Practitioner José Antonio SHEARER, Dr. Valentino Nurse Practitioner Manuel SHEARER, Dr. Mcgarry Nurse Practitioner [phone] Arleth SHEARER, Dr. Jose Juan Alvarado Attending [...] Mollison, Brett Attending Unavailable DinoisonBrett Referring Unavailable [place], Ivette Referring Unavailable [place], Ivette Attending Unavailable Sydney, Ivette Primary Care Unavailable Mollison, Brett Referring Unavailable Mollison, Brett Attending Unavailable [place], Ivette Primary Care Unavailable Sydney, Ivette Referring Unavailable [place], Ivette Attending Unavailable Sydney, Ivette Primary Care Unavailable Assessment, Health Risk Referring Unavaila ble Assessment, Health Risk Attending Unavaila ble Sydney, Ivette Primary Care Unavailable [place], Ivette Primary Care Unavailable [place], Ivette Referring Unavailable [place], Ivette Attending Unavailable [place], Ivette Primary Care Unavailable Sydney, Ivette Referring Unavailable Bibiana Rehman Attending Unavailable [place], [facility] Primary Care Unavailable Jenni Jain Referring Unavailable Jenni Jain Attending Unavailable [place], Ivette Primary Care Unavailable [place], Ivette Referring Unavailable Saundra Christensen Attending Unavailable [place], Ivette Primary Care Unavailable [place], Ivette Referring Unavailable Dossi, Bibiana Attending Unavailable [place], Ivette Primary Care Unavailable [place], Ivette Referring Unavailable Dossi, Bibiana Attending Unavailable [place], Ivette Primary Care Unavailable Sydney, Ivette Referring Unavailable Dossi, Bibiana Attending Unavailable [place], Ivette Primary Care Unavailable Sydney, Ivette Referring Unavailable Jess DENNIS, Jesenia Attending Unavailable Mollison, Brett Referring Unavailable Vin Montes Attending Unavailable [place], Ivette Primary Care Unavailable [place], Ivette Primary Care Unavailable Buddy Hall Attending Unavailable [place], Ivette Primary Care Unavailable Sydney, Ivette Referring Unavailable Sydney, Ivette Attending Unavailable Sydney, Ivette Attending Unavailable [place], Ivette Referring Unavailable [place], Ivette Primary Care Unavailable Shana Mendoza Admitting Unavailable Shana Mendoza Consulting Unavailable Brittany Harrison Attending Unavailable [place], Ivette Primary Care Unavailable Jose Juan Reinoso Consulting Unavailable Brittany Harrison Consulting Unavailable Sydney, Ivette Primary Care Unavailable [place], Ivette Referring Unavailable Molldeep, Brett Attending Unavailable Sydney, Ivette Referring Unavailable [place], Ivette Primary Care Unavailable Dossi, Bibiana Attending Unavailable [place], Ivette Primary Care Unavailable [place], Ivette Referring Unavailable Rivka Malloy Attending Unavailable [place], Ivette Primary Care Unavailable RadhanesSaundra mahmood Referring Unavailable Saundra Christensen Attending Unavailable Shana Mendoza Consulting Unavailable Brittany Harrison Attending Unavailable Shana Mendoza Admitting Unavailable [place], Ivette Primary Care Unavailable Jose Juan Reinoso Consulting Unavailable [place], Ivette Primary Care Unavailable Sam Pearl Attending Unavailable [place], Ivette Referring Unavailable Dossi, Bibiana Attending Unavailable [place], Ivette Primary Care Unavailable [place], Ivette Referring Unavailable Mollison, Brett Attending Unavailable [place], Ivette Primary Care Unavailable [place], Ivette Referring Unavailable Sydney, Ivette Primary Care Unavailable Dossi, Bibiana Attending Unavailable [place], Ivette Primary Care Unavailable [place], Ivette Referring Unavailable Dossi, Bibiana Attending Unavailable [place], Ivette Referring Unavailable Mollison, Brett Attending Unavailable [place], Ivette Primary Care Unavailable Sydney, Ivette Referring Unavailable Dossi, Bibiana Attending Unavailable [place], Ivette Primary Care Unavailable Sydney, Ivette Referring Unavailable Mollison, Brett Attending Unavailable [place], Ivette Primary Care Unavailable [facility] Referring Unavailable Brett Quiroga Attending Unavailable [facility] Primary Care Unavailable [facility] Referring Unavailable Saundra Christensen Attending Unavailable [facility] Primary Care Unavailable [facility] Referring Unavailable Jesenia Mercado NP Attending Unavailable [facility] Primary Care Unavailable [facility] Primary Care Unavailable Saundra Christensen Attending Unavailable Saundra Christensen Consulting Unavailable Saundra Christensen Referring Unavailable Shana Mendoza Attending Unavailable [facility] Unavailable Jose Juan Reinoso Attending Unavailable Brad Trinidad Consulting Unavailable Killian Osorio Consulting Unavailable Primo Ceorn Consulting Unavailable Derik Stack Consulting Unavailable Brittany [...] Quiroga Referring Unavailable Brett Quiroga Attending Unavailable [facility] Primary Care Unavailable Allergies Allergy Classification Reported Allergen(s) Allergy Type Date of Onset Reaction(s) Facility (20 sources) Betamethasone; Translations: [BETAMETHASONE DIPROPIONATE] Drug Allergy 12-21-19 [facility], [facility] Work Phone: (20 sources) Lidocaine; Translations: [LIDOCAINE] Drug Allergy 12-24-19 [facility] Work Phone: (7 sources) Corticosteroids Allergy to substance 01-01-20 [facility] Work Phone: (20 sources) Glucocorticoid Receptor Agonists Allergy to substance 10-16-20 [facility] (20 sources) dapagliflozin; Translations: [DAPAGLIFLOZIN] Drug Allergy 08-05-20 [facility] (20 sources) metFORMIN; Translations: [METFORMIN] Drug Allergy 08-05-20 [facility] (1 source) Corticosteroids Drug allergy (disorder) 09-16-20 [facility] (1 source) Lidocaine Drug Allergy 09-16-20 [facility] Medications Current Medications Medication Drug Class(es) Dates Sig (Normalized) Sig (Original) [id number] 200 actuat albuterol 0.09 mg/actuat metered dose [...] Active BIPAP Bipap -Bilevel Positive Airway Pressure ([facility] Informational Use Only) device (2 sources) Start: 07-06-2025 Bipap -Bilevel Positive Airway Pressure ([facility] Informational Use Only) device Active 0 [...] 12/18/2024 Active Cpap - Continuous Positive Airway Pressure([facility] Informational Use Only) device (2 sources) Start: 07-06-2025 Cpap - Continuous Positive Airway Pressure([facility] Informational Use Only) device Active 0 [...] Comment on above: Take 1 tablet by [facility] once daily. FLUoxetine 20 mg oral [...] Comment on above: Take 1 capsule by [facility] once daily for 7 days, THEN 2 capsules once daily. Take 1 capsule by [facility] once daily. gabapentin 300 mg oral capsu [...] 3:46pm Start: 05-22-2017 take 1 capsule by [facility] three times daily GABAPENTIN 300 MG CAPS 1 po tid GABAPENTIN [id number] Jackson Brown Comment on above: Take 2 capsules by [facility] twice daily for 90 days. Take 1 tablet in AM, afternoon and bedtime. If after 2 days symptoms persist, increase to 1 tab in AM, afternoon and 2 tabs at bedtime. Take one po qhs Take 1 capsule by [facility] twice daily for 180 days. [...] spray(s) nasa l route twice daily Ipratropium Kiln Active 2 SPRAY INTRANASAL TWICE A DAY [...] the CT contrast administration guidelines link. levonorgestrel 0.267578 mg/hr intrauterine system (20 sources) Progestin, Progestin-containing [...] Start: 09-09-2017 JOJO 13.5 MG IUD LEVONORGESTREL [id number] Amparo Hitchcock MD Comment on above: 1 [...] 2021 4:26pm must administer with a meal/food Dazey-3 Fatty Acids (Fish Oil Concentrate) 1,000 mg capsule (20 sources) Start: 02-21-2021 take 1 capsule by mouth once daily Dazey-3 Fatty Acids (Fish Oil Concentrate) 1,000 mg capsule Active 1000 MG PO DAILY February 21, 2021 9:19am Start: 02-21-2021 End: 10-16-2024 take 1 capsule by mouth once daily Dazey-3 Fatty Acids (Fish Oil Concentrate) 1,000 mg capsule Discontinued 1000 mg PO DAILY February 21, 2021 12:00am October 16, 2024 10:15pm supplement Start: 02-21-2021 End: 10-16-2024 take 1 capsule by mouth once daily Dazey-3 Fatty Acids (Fish Oil Concentrate) 1,000 mg capsule Discontinued 1000 mg PO DAILY February 21, 2021 12:00am October 16, 2024 10:15pm Start: 02-21-2021 take 1 capsule by mo ut once daily Dazey-3 Fatty Acids (Fish Oil Concentrate) 1,000 mg capsule Active 1000 MG PO DAILY February 20, 2021 11:00pm Start: 02-21-2021 take 1 capsule by mo [facility] once daily Dazey-3 Fatty Acids (Fish Oil Concentrate) 1,000 mg [...] every 8 hours as needed for nausea/vomiting. Tbkuqvfv-Up-Vqs-Fe -FA tab (20 sources) Start: 1 take 1 tablet by mouth once daily Ybaudevr-Gz-Bsv-F e-FA tab Take 1 tablet by mouth once daily. 0 03/14/2011 Active Comment on above: Take 1 tablet by ishmael once daily. feluzhnd-cbp-As-FA 1 mg capsule (20 sources) Start: 0 take 1 capsule by mouth once daily pdjmvunv-tjy-Jm-F A 1 mg capsule Active 1 CAP PO DAILY April 26, 2020 10:18am Start: 04-26-2020 End: 08-05-2023 take 1 capsule by mouth once daily acpikepl-acn-Mw-FA 1 mg capsule Discontinued 1 CAP PO DAILY April 25, 2020 11:00pm August 05, 2023 10:25am Start: 04-26-2020 End: 08-05-2023 take 1 capsule by mouth once daily kjeqebuk-nxw-Cs-FA 1 mg capsule Discontinued 1 CAP PO DAILY April 26, 2020 12:00am August 05, 2023 11:25am Start: 04-26-2020 take 1 capsule by mo [facility] once daily yxgrhjrd-yqj-Rd-FA 1 mg capsule Active 1 CAP PO DAILY April 25, 2020 11:00pm Start: 04-26-2020 take 1 capsule by mo [facility] once daily ogumrqxt-bli-Yl-FA 1 mg capsule Active 1 CAP PO DAILY April 26, 2020 12:00am rimegepant 75 mg disintegrating oral tablet (20 sources) Start: 12-26-2023 End: 09-02-2024 Comment on above: Take 1 tablet by [facility] once daily as needed. Semaglutide (2 [...] as needed for muscle spasms TIZANIDINE HCL [id number] Sammy Victor ESTIMATOR PROJECT MANAGER-C Start: 04-29-2017 End: 08-10-2022 take 1 tablet [...] every 8 hours as needed. TIZANIDINE HCL [id number] Santana IRENE Comment on above: Take 1 [...] Start: 09-09-2017 TROKENDI XR 20 0 MG QP01A-CNY TOPIRAMATE [id number] Amparo Hitchcock MD Start: 09-28-2016 End: 09-09-2017 TOPIRAMATE 15 MG CPSP 11/28 TOPIRAMATE [id number] Santana IRENE Comment on above: Take 1 [...] 09-28-2016 End: 09-09-2017 TYLENOL CAPS ACETAMINOPHEN CAPS [id number] Amparo Hitchcock MD Start: 09-28-2016 TYLENOL CAPS 2 ACETAMINOPHEN CAPS [id number] Santana IRENE acetaminophen 325 mg / HYDRO [...] one every 6 hours as needed. HYDROCODONE-ACETAMINOPHEN [id number] Santana IRENE acetaminophen 325 mg / oxyCO [...] End: 09-09-2017 DIFLUNISAL 500 MG TABS DIFLUNISAL [id number] Raghav IRENE 0.5 ml dulaglutide 1.5 mg/ml [...] Start: 09-28-2016 LORAZEPAM 1 MG TABS LORAZEPAM [id number] Santana IRENE Start: 10-27-2013 End: 04-26-2020 Comment [...] both ears once daily for 7 days. Dazey-3 Fatty Acids (20 sources) Start: 04-26-2020 End: 08-23-2020 take 500 mg by mouth once daily Dazey-3 Fatty Acids Discontinued 500 MG PO DAILY April 26, 2020 10:19am August 23, 2020 10:22am Start: 04-26-2020 End: 08-23-2020 take 500 mg by mouth once daily Dazey-3 Fatty Acids Discontinued 500 MG PO DAILY April 25, 2020 11:00pm August 23, 2020 9:22am Start: 04-26-2020 End: 08-23-2020 take 500 mg by mouth once daily Dazey-3 Fatty Acids Discontinued 500 MG PO DAILY April 26, 2020 12:00am August 23, 2020 10:22am Dazey-3 Fatty Acids (FISH OIL) 500 mg cap (20 sources) Start: 10-09-2019 End: 06-07-2025 take 1 capsule by mouth once daily Dazey-3 Fatty Acids (FISH OIL) 500 mg cap Take 1 capsule by mouth once daily. 30 capsule 11 10/09/2019 06/07/2025 Discontinued Start: 10-09-2019 take 1 capsule by mo uth once daily Dazey-3 Fatty Acids (FISH OIL) 500 mg cap Take 1 capsule by mouth once daily. 30 capsule 11 10/09/2019 Active Comment on above: Take 1 capsule by mo [facility] once daily. Dazey-3 Fatty Acids 500 mg capsule (16 sources) Start: 0 End: 0 take 1 capsule by mouth once daily Dazey-3 Fatty Acids 500 mg capsule Discontinued 500 mg PO DAILY April 26, 2020 12:00am August 23, 2020 10:22am omeprazole 20 mg delayed release oral capsule (20 sources) Proton Pump Inhibitor Start: End: Start: 04-26-2020 End: 08-10-2022 Comment on above: Take 1 capsule by mo [facility] daily before breakfast. 1/2 hr before meal. PARoxetine hydrochloride 10 mg oral tablet (20 sources) Serotonin Reuptake Inhibitor Start: End: phenazopyridine hydrochloride 200 mg oral tablet (20 sources) Start: End: phentermine hydrochloride 37.5 mg oral capsule (1 source) Sympathomimetic Amine Anorectic Start: take 1 tablet by mouth once daily ADIPEX-P 37.5 MG CAPS One tablet by mouth daily PHENTERMINE HCL [id number] Amparo Hitchcock MD potassium chloride 20 meq powder for oral solution (20 sources) Start: 025 End: predniSONE 50 mg oral tablet (5 sources) Corticosteroid Start: End: PREDNISONE 50 MG TABS 1 tablet every morning PREDNISONE [id number] Raghav IRENE pregabalin 75 mg oral capsule [...] on pill 3 times per day thereafter Wcnirtlu-Ou-Xyj-Fe-FA ( FORMULA) ORAL Tab (20 sources) Start: 011 take 1 tablet by mouth once daily Dlhwszrq-Ew-Ugx-Fe- FA ( FORMULA) ORAL Tab Take 1 tablet by mouth once daily. 0 03/14/2011 Active Comment on above: Take 1 tablet by [facility] once daily. Xrhoyzyc-Ulj-Vt-Fa 1 mg capsule (16 sources) Start: End: take 1 capsule by mouth once daily Brjzvzcp-Kwe-Ly-Fa 1 mg capsule Discontinued 1 NMA PO [...] Onset: 03-29-20 Chronic Other aftercare (2 sources) snf (current) use of insulin; Translations: [Type 2 [...] III, BMI 40-49.9 (morbid obesity) ([facility]); Translations: [Obesity, Class III, BMI 40-49.9 (morbid obesity) ([facility])] Onset: 01-03-20 Unclassified (1 source) [...] 09-16-2025 FINGERSTICK GLU 185 mg/dL High 74-106 [facility] Comment on above: Result Comment: [facility] OF PATIENT CARE PER NURSING PROTOCOL Performed By: #### L [id number] ####[facility] [id number] [place], [place], [address] Discharge Instructionon 09-04 Discharge Instruction Normal [facility] MR/POSTOP.ANEon 09-16-2025 MR/POSTOP.ANE Normal [facility] MR/[id number] 09-16-2025 MR/POSTOPAN2 Normal [facility] Operative Reporton Operative Report Normal [facility] ,Urineon 09-16-2025 Beta HCG ( test) Ql (U) Negative [facility] Comment on above: Result Comment: Very dilute urine specimens, as indicated by a low specificgravity, may not contain medical center representative levels of hCG.If is still suspected, a first morning urinespecimen should be collected 48 hours later and tested. Performed By: #### L [id number] ####[facility] [id number] [place], [place], [address] MR/PAT.ANEon 09-10-2025 MR/PAT.ANE Normal [facility] Office Visit Reporton 2024 Office Visit Report Normal [facility] Cardiology Visit Reporton Cardiology Visit Report Normal [facility] Pulmonary Visit Reporton Pulmonary Visit Report Normal [facility] TORI GRAY ([id number]) 1980 F Date Time Provider Department 08/27/25 IVETTE GRIMES During your visit today, we recorded the following information about you: Rukhsana Wood 08/27/2025 2:32 PM Signed Tori is calling Ivette Grimes MD today to request a prior authorization on her Ozempic, per pharmacy, [facility] Please call patient with approval/denial when received Patient has been identified by name and birthdate. Person calling: self Call patient at: on cell [phone] (cell) Was an appointment scheduled: No Closing statement: Prior Authorization Calls: Thank you for calling [facility], your call will be returned within the next 24 hours or next business day. Rukhsana Argueta [facility] Evon Philippe LPN 08/30/2025 12:43 PM Signed Unable to complete this electronically. Will have to via covermymeds. Evon Philippe LPN 08/30/2025 2:35 PM Signed Unable to complete also on covermymeds. PA form completed. Evon Philippe LPN 08/30/2025 2:38 PM Signed PA form signed and records faxed back. Evon Philippe LPN 09/06/2025 11:08 AM Signed Rec'd call from [employer]. PA form printed and completed for them. 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 All has been faxed. Allergies [...] tablet by mouth once daily. - Ipratropium Kiln (ATROVENT) 21 mcg (0.03 %) nasal spray [...] DM - Controlled E11.9 Insulin: No - Jktwsrhy-Br-Dat-Fe- FA tab Take 1 tablet by mouth [...] Routine general medical examination at [facility]*01/23/2010 12/06/2012 Class: Chronic Routine gynecological examination [Z01.419] 01/23/2010 02/22/2014 Class: Chronic Morbid obesity (HCC) [E66.01] 01/23/2010 06/07/2025 Lumbar Disc Disorder [M51.9] 02/16/2010 Routine general medical examination at [facility]*12/06/2012 02/22/2014 Anxiety [F41 (more content not included)... Normal [facility] MR/BMS.Maite 08-27-2025 MR/BMS.LISA [facility] 08-13-2025 [facility] TORI GRAY ([id number]) 1980 F Date Time Provider Department 08/13/25 IVETTE GRIMES [facility] During your visit today, we recorded the following information about you: Nirmala Storey LPN 08/13/2025 8:55 AM Signed Urine culture scanned in today. Scan on 08/13/2025 7:34 AM by Provider, External, PA-C: Microbiology Ivetet Grimes MD 08/13/2025 9:58 AM Signed Culture is positive for uti. The macrobid she was given should cover it. Nirmala Storey LPN 08/13/2025 10:53 AM Signed [employer] message sent to patient. Allergies As of [...] tablet by mouth once daily. - Ipratropium Kiln (ATROVENT) 21 mcg (0.03 %) nasal spray [...] DM - Controlled E11.9 Insulin: No - Xyrnhlyn-Yl-Eqf-Fe- FA tab Take 1 tablet by mouth [...] general medical examination at a [facility]*01/23/2010 12/06/2012 Class: Chronic Routine gynecological examination [Z01.419] 01/23/2010 02/22/2014 Class: Chronic Morbid obesity (HCC) [E66.01] 01/23/2010 06/07/2025 Lumbar Disc Disorder [M51.9] 02/16/2010 Routine general medical examination at [facility]*12/06/2012 02/22/2014 Anxiety [F41.9] 06/07/2014 Type 2 [...] lumbar interverteb (more content not included)... Normal [facility] Urine Cultureon 08-13-2025 [facility] Normal [facility] Comment on above: Performed By: #### L 400.0001, L100.0100, L501.9985, M100.2200 ####[facility] [address] [place], [place], [id number] CBC W/Diff, Automatedon 10-0 Absolute Lymph 3.56 X10 3/uL Normal 0.83-4.51 [facility] Comment on above: Performed By: #### L 400.0001, L100.0100, L501.9985, M100.2200 ####[facility] [address] [place], [address] Absolute Neut 5.6 X10 3/uL Normal 2.0-7.7 [facility] Comment on above: Performed By: #### L 400.0001, L100.0100, L501.9985, M100.2200 ####[facility] [address] [place], [address] Basophils/100 WBC (Bld) 0.8 % Normal 0-1 [facility] Comment on above: Performed By: #### L 400.0001, L100.0100, L501.9985, M100.2200 ####[facility] [address] [place], [address] Eosinophils/100 WBC (Bld) 1.7 % Normal 0-5 [facility] Comment on above: Performed By: #### L 400.0001, L100.0100, L501.9985, M100.2200 ####[facility] [address] [place], [address] Erythrocyte distribution width (RBC) [Ratio] 13.7 % Normal 11.6-14.6 [facility] Comment on above: Performed By: #### L 400.0001, L100.0100, L501.9985, M100.2200 ####[facility] [address] [place], [address] Hematocrit (Bld) [Volume fraction] 39.7 % Normal 37-47 [facility] Comment on above: Performed By: #### L 400.0001, L100.0100, L501.9985, M100.2200 ####[facility] [address] [place], [address] Hemoglobin (Bld) [Mass/Vol] 13.3 g/dL Normal 12.0-15.0 [facility] Comment on above: Performed By: #### L 400.0001, L100.0100, L501.9985, M100.2200 ####[facility] [address] [place], [address] IG% 1.300 High 0.0-0.9 [facility] Comment on above: Result Comment: IG% - Immature Granulocytes (promyelocytes, myelocytes andmetamyelocytes) > 1% indicates that a LEFT SHIFT is Present. Performed By: #### L 400.0001, L100.0100, L501.9985, M100.2200 ####[facility] [address] [place], [address] Lymphocytes/100 WBC (Bld) 35.6 % Normal 19-41 [facility] Comment on above: Performed By: #### L 400.0001, L100.0100, L501.9985, M100.2200 ####[facility] [address] [place], [address] MCH (RBC) [Entitic mass] 30.7 pg Normal 27.0-32.0 [facility] Comment on above: Performed By: #### L 400.0001, L100.0100, L501.9985, M100.2200 ####[facility] [address] [place], [address] MCHC (RBC) [Mass/Vol] 33.5 g/dL Normal 32-36 [facility] Comment on above: Performed By: #### L 400.0001, L100.0100, L501.9985, M100.2200 ####[facility] [address] [place], [address] MCV (RBC) [Entitic vol] 91.7 fL Normal 81-99 [facility] Comment on above: Performed By: #### L 400.0001, L100.0100, L501.9985, M100.2200 ####[facility] [address] [place], [address] Monocytes/100 WBC (Bld) 4.8 % Normal 0-10 [facility] Comment on above: Performed By: #### L 400.0001, L100.0100, L501.9985, M100.2200 ####[facility] [address] [place], [address] Neutrophils/100 WBC (Bld) 55.8 % Normal 47-70 [facility] Comment on above: Performed By: #### L 400.0001, L100.0100, L501.9985, M100.2200 ####[facility] [address] [place], [address] Nucleated RBC (Bld) [#/Vol] 0 10*3/uL Normal 0-5 [facility] Comment on above: Performed By: #### L 400.0001, L100.0100, L501.9985, M100.2200 ####[facility] [address] [place], [address] Platelet mean volume (Bld) [Entitic vol] 9.3 fL Normal 6.2-12.0 [facility] Comment on above: Performed By: #### L 400.0001, L100.0100, L501.9985, M100.2200 ####[facility] [address] [place], [address] Platelets (Bld) [#/Vol] 219 10*3/uL Normal 150-450 [facility] Comment on above: Performed By: #### L 400.0001, L100.0100, L501.9985, M100.2200 ####[facility] [address] [place], [address] RBC (Bld) [#/Vol] 4.33 10*6/uL Normal 4.2-5.4 [facility] Comment on above: Performed By: #### L 400.0001, L100.0100, L501.9985, M100.2200 ####[facility] [address] [place], [address] RDW SD 46.5 fl High 35.1-43.9 [facility] Comment on above: Performed By: #### L 400.0001, L100.0100, L501.9985, M100.2200 ####[facility] [address] [place], [address] WBC (Bld) [#/Vol] 10.0 10*3/uL Normal 4.4-11.0 [facility] Comment on above: Performed By: #### L 400.0001, L100.0100, L501.9985, M100.2200 ####[facility] [address] [place], [address] CNPNon [facility] TORI GRAY ([id number]) 1980 F Date Time Provider Department 08/11/25 [facility] During your visit today, we recorded [...] results of labs and urine completed at [facility] and she feels that she is heading [...] Signed Did she have ct done at [facility]. If so, can we get it. Annel Bundy RN 08/11/2025 1:[address] was completed at [facility] at last hospital visit. I am not [...] [N13.30] Order(s):CONSULT TO UROLOGY [9041] Order #: [id number]: 1 FUTURE nitrofurantoin monohydrate and macrocrystal (MACROBID) [...] tablet by mouth once daily. - Ipratropium Kiln (ATROVENT) 21 mcg (0.03 %) nasal spray [...] DM - Controlled E11.9 Insulin: No - Zkstelno-Nq-Wuh-Fe- FA tab Take 1 tablet by mouth once daily. Meds Comments as of 03/01/2019: Percocet March 01, 2019 Stephanie Suresh RN Problem List As Of Date 08/11/2025 (more content not included)... Normal [facility] Hemoglobin A1con 08-11-2025 HbA1c (Bld) [Mass fraction] 6.8 % High <=5.6 [facility] Comment on above: Result Comment: Norm al < 5.7 % Prediabetic 5.7 - 6.4 % Diabetic >or= 6.5 % Please note range changes. Performed By: #### L 400.0001, L100.0100, L501.9985, M100.2200 ####[facility] [address] [place], [address] Urinalysis, Completeon 08-11 RBC 0-5 SEEN Normal 0-5 [facility] Comment on above: Order Comment: Urine , Random Performed By: #### L 400.0001, L100.0100, L501.9985, M100.2200 ####[facility] [address] [place], [address] BACTERIA 2+ /hpf Normal None Seen [facility] Comment on above: Order Comment: Urine , Random Performed By: #### L 400.0001, L100.0100, L501.9985, M100.2200 ####[facility] [address] [place], [address] EPI,SQUAMOUS 10-25 SEEN Normal 5-10 [facility] Comment on above: Order Comment: Urine , Random Performed By: #### L 400.0001, L100.0100, L501.9985, M100.2200 ####[facility] [address] [place], [address] WBC 10-25 SEEN Normal 0-5 [facility] Comment on above: Order Comment: Urine , Random Performed By: #### L 400.0001, L100.0100, L501.9985, M100.2200 ####[facility] [address] [place], [address] Mucus Ql (Urine sed) 0 SEEN Normal [facility] Comment on above: Order Comment: Urine , Random Performed By: #### L 400.0001, L100.0100, L501.9985, M100.2200 ####[facility] [address] [place], [address] CNPNon 08-09-2025 [facility] Telephone ([facility]) ---- TORI GRAY ([id number]) 1980 F Date Time Provider Department 08/09/25 IVETTE GRIMES [facility] During your visit today, we recorded the following information about you: Priscila France RN 08/09/2025 8:27 AM Signed Pt called in requesting to have her labs faxed over [facility]. Faxed to the lab at # [phone]. Priscila France RN Allergies As of Date: [...] tablet by mouth once daily. - Ipratropium Kiln (ATROVENT) 21 mcg (0.03 %) nasal spray [...] DM - Controlled E11.9 Insulin: No - Gdvewrsr-Ur-Zvm-Fe- FA tab Take 1 tablet by mouth [...] Routine general medical examination at [facility]*01/23/2010 12/06/2012 Class: Chronic Routine gynecological examination [Z01.419] 01/23/2010 02/22/2014 Class: Chronic Morbid obesity (HCC) [E66.01] 01/23/2010 06/07/2025 Lumbar Disc Disorder [M51.9] 02/16/2010 Routine general medical examination at [facility]*12/06/2012 02/22/2014 Anxiety [F41.9] 06/07/2014 Type 2 [...] 09/04/2022 09/04/2022 (more content not included)... Normal [facility] Orthopedic Visit Reporton Orthopedic Visit Report Normal [facility] CNOVon 08-04-2025 CNOV Office Visit ([facility]) ---- TORI [id number]) 1980 F Date Time Provider Department 08/04/25 [...] for migraine Informed Consent Consent Obtained: Written Wilmot Protocol A moment to CARE was completed [...] collected. Written Consent Obtained: Written LOT #: [id number] Expiration Date: Month: : 2026 Second vial: LOT #: [id number] Expiration Date: Month: Year: 2026 Injection Sites Left (Units) Left (Sites) Right (Units) Right (Sites) TOTAL (Units) Eligibility Worker 5 1 5 1 10 Procerus Units: [...] Modules accepted: Orders Referring Provider: AMANDA ARTEAGA [[id number]] Allergies As of Date: 08/04/2025 Noted Allergy [...] 5 day (more content not included)... Normal [facility] TORI GRAY ([id number]) 1980 F Date Time Provider Department 07/29/25 IVETTE GRIMES [facility] During your visit today, we recorded the following information about you: Little Murphy MA 07/29/2025 5:36 PM Signed Ivette Grimes MD P [facility] Send over order for ua and C and S to be done now and blood work to be done in 8 weeks to [facility]. Thanks. Little Rodriguez MA 07/29/2025 5:36 PM Signed Orders faxed to [facility] Allergies As of Date: 07/29/2025 Noted Allergy [...] tablet by mouth once daily. - Ipratropium Kiln (ATROVENT) 21 mcg (0.03 %) nasal spray [...] DM - Controlled E11.9 Insulin: No - Ztiwncva-Cb-Gos-Fe- FA tab Take 1 tablet by mouth [...] general medical examination at a [facility]*01/23/2010 12/06/2012 Class: Chronic Routine gynecological examination [Z01.419] 01/23/2010 02/22/2014 Class: Chronic Morbid obesity (HCC) [E66.01] 01/23/2010 06/07/2025 Lumbar Disc Disorder [M51.9] 02/16/2010 Routine general medical examination at [facility]*12/06/2012 02/22/2014 Anxiety [F41.9] 06/07/2014 Type 2 [...] 09/04/2022 09/04/2022 (more content not included)... Normal [facility] Absolute lymphocyte countOrd ered By: Ivette Grimes on 07-23-2025 Lymphocytes Auto (Unsp spec) [#/Vol] 2.44 10*3/uL 0.83-4.51 [facility] Anion gap in Serum or Plasma Ordered By: Ivette Grimes on 07-23-2025 Anion gap [Moles/Vol] 14 mmol/L 5- [facility] Automated lymphocyte count a s percentage of total leukocytesOrdered By: Ivette Grimes on 07-23-2025 Lymphocytes/100 WBC Auto (Unsp spec) 29.6 % - [facility] BUN/creatinine ratioOrdered By: Ivette Grimes on 07-23-2025 Urea nitrogen/Creatinine [Mass ratio] 14.1 mg/mg 10- [facility] Basic Metabolic Profile (BMP )on 07-23-2025 BUN/CRE 14.1 RATIO Normal - [facility] Comment on above: Performed By: #### L 503.6030, L100.0100, L503.6550, L500.2500, L503.0106, L506.0200 ####[facility] [address] [place], [address] Calcium [Mass/Vol] 8.9 mg/dL Normal 7.6-11.0 [facility] Comment on above: Performed By: #### L 503.6030, L100.0100, L503.6550, L500.2500, L503.0106, L506.0200 ####[facility] [address] [place], [address] Chloride [Moles/Vol] 104 mmol/L Normal 98-108 [facility] Comment on above: Performed By: #### L 503.6030, L100.0100, L503.6550, L500.2500, L503.0106, L506.0200 ####[facility] [address] [place], [address] CO2 [Moles/Vol] 18.9 mmol/L Low 21.0-32.0 [facility] Comment on above: Performed By: #### L 503.6030, L100.0100, L503.6550, L500.2500, L503.0106, L506.0200 ####[facility] [address] [place], [address] Creatinine [Mass/Vol] 0.89 mg/dL Normal 0.70-1.20 [facility] Comment on above: Performed By: #### L 503.6030, L100.0100, L503.6550, L500.2500, L503.0106, L506.0200 ####[facility] [address] [place], [address] GAP 14 Normal 5-15 [facility] Comment on above: Performed By: #### L 503.6030, L100.0100, L503.6550, L500.2500, L503.0106, L506.0200 ####[facility] [address] [place], [address] GFR/1.73 sq M.predicted among non-blacks MDRD (S/P/Bld) [Vol rate/Area] 82 mL/min/{1.73_m2} Normal >60 [facility] Comment on above: Result Comment: mL/m in/1.73m2 CKD-EPI Creatinine Equation (2020) Performed By: #### L 503.6030, L100.0100, L503.6550, L500.2500, L503.0106, L506.0200 ####[facility] [address] [place], [address] Glucose [Mass/Vol] 145 mg/dL High 70-99 [facility] Comment on above: Performed By: #### L 503.6030, L100.0100, L503.6550, L500.2500, L503.0106, L506.0200 ####[facility] [address] [place], [address] Potassium [Moles/Vol] 3.9 mmol/L Normal 3.3-5.1 [facility] Comment on above: Performed By: #### L 503.6030, L100.0100, L503.6550, L500.2500, L503.0106, L506.0200 ####[facility] [address] [place], [address] Sodium [Moles/Vol] 137 mmol/L Normal 133-145 [facility] Comment on above: Performed By: #### L 503.6030, L100.0100, L503.6550, L500.2500, L503.0106, L506.0200 ####[facility] [address] [place], [address] Urea nitrogen [Mass/Vol] 13 mg/dL Normal 4-19 [facility] Comment on above: Performed By: #### L 503.6030, L100.0100, L503.6550, L500.2500, L503.0106, L506.0200 ####[facility] [address] [place], [address] Basophil percentageOrdered B y: Ivette Grimes on 07-23-2024 Basophils/100 WBC (Bld) 0.8 % 0-1 [facility] CBC W/Diff, Automatedon 07-05 Absolute Lymph 2.44 X10 3/uL Normal 0.83-4.51 [facility] Comment on above: Performed By: #### L 503.6030, L100.0100, L503.6550, L500.2500, L503.0106, L506.0200 ####[facility] [address] [place], [address] Absolute Neut 5.1 X10 3/uL Normal 2.0-7.7 [facility] Comment on above: Performed By: #### L 503.6030, L100.0100, L503.6550, L500.2500, L503.0106, L506.0200 ####[facility] [address] [place], [address] Basophils/100 WBC (Bld) 0.8 % Normal 0-1 [facility] Comment on above: Performed By: #### L 503.6030, L100.0100, L503.6550, L500.2500, L503.0106, L506.0200 ####[facility] [address] [place], [address] Eosinophils/100 WBC (Bld) 1.5 % Normal 0-5 [facility] Comment on above: Performed By: #### L 503.6030, L100.0100, L503.6550, L500.2500, L503.0106, L506.0200 ####[facility] [address] [place], [address] Erythrocyte distribution width (RBC) [Ratio] 13.2 % Normal 11.6-14.6 [facility] Comment on above: Performed By: #### L 503.6030, L100.0100, L503.6550, L500.2500, L503.0106, L506.0200 ####[facility] [address] [place], [address] Hematocrit (Bld) [Volume fraction] 38.1 % Normal 37-47 [facility] Comment on above: Performed By: #### L 503.6030, L100.0100, L503.6550, L500.2500, L503.0106, L506.0200 ####[facility] [address] [place], [address] Hemoglobin (Bld) [Mass/Vol] 12.7 g/dL Normal 12.0-15.0 [facility] Comment on above: Performed By: #### L 503.6030, L100.0100, L503.6550, L500.2500, L503.0106, L506.0200 ####[facility] [address] [place], [address] IG% 1.100 High 0.0-0.9 [facility] Comment on above: Result Comment: IG% - Immature Granulocytes (promyelocytes, myelocytes andmetamyelocytes) > 1% indicates that a LEFT SHIFT is Present. Performed By: #### L 503.6030, L100.0100, L503.6550, L500.2500, L503.0106, L506.0200 ####[facility] [address] [place], [address] Lymphocytes/100 WBC (Bld) 29.6 % Normal 19-41 [facility] Comment on above: Performed By: #### L 503.6030, L100.0100, L503.6550, L500.2500, L503.0106, L506.0200 ####[facility] [address] [place], [address] MCH (RBC) [Entitic mass] 31.5 pg Normal 27.0-32.0 [facility] Comment on above: Performed By: #### L 503.6030, L100.0100, L503.6550, L500.2500, L503.0106, L506.0200 ####[facility] [address] [place], [address] MCHC (RBC) [Mass/Vol] 33.3 g/dL Normal 32-36 [facility] Comment on above: Performed By: #### L 503.6030, L100.0100, L503.6550, L500.2500, L503.0106, L506.0200 ####[facility] [address] [place], [address] MCV (RBC) [Entitic vol] 94.5 fL Normal 81-99 [facility] Comment on above: Performed By: #### L 503.6030, L100.0100, L503.6550, L500.2500, L503.0106, L506.0200 ####[facility] [address] [place], [address] Monocytes/100 WBC (Bld) 5.0 % Normal 0-10 [facility] Comment on above: Performed By: #### L 503.6030, L100.0100, L503.6550, L500.2500, L503.0106, L506.0200 ####[facility] [address] [place], [address] Neutrophils/100 WBC (Bld) 62.0 % Normal 47-70 [facility] Comment on above: Performed By: #### L 503.6030, L100.0100, L503.6550, L500.2500, L503.0106, L506.0200 ####[facility] [address] [place], [address] Nucleated RBC (Bld) [#/Vol] 0 10*3/uL Normal 0-5 [facility] Comment on above: Performed By: #### L 503.6030, L100.0100, L503.6550, L500.2500, L503.0106, L506.0200 ####[facility] [address] [place], [address] Platelet mean volume (Bld) [Entitic vol] 9.3 fL Normal 6.2-12.0 [facility] Comment on above: Performed By: #### L 503.6030, L100.0100, L503.6550, L500.2500, L503.0106, L506.0200 ####[facility] [address] [place], [address] Platelets (Bld) [#/Vol] 240 10*3/uL Normal 150-450 [facility] Comment on above: Performed By: #### L 503.6030, L100.0100, L503.6550, L500.2500, L503.0106, L506.0200 ####[facility] [address] [place], [address] RBC (Bld) [#/Vol] 4.03 10*6/uL Low 4.2-5.4 [facility] Comment on above: Performed By: #### L 503.6030, L100.0100, L503.6550, L500.2500, L503.0106, L506.0200 ####[facility] [address] [place], [address] RDW SD 45.7 fl High 35.1-43.9 [facility] Comment on above: Performed By: #### L 503.6030, L100.0100, L503.6550, L500.2500, L503.0106, L506.0200 ####[facility] [address] [place], [address] WBC (Bld) [#/Vol] 8.3 10*3/uL Normal 4.4-11.0 [facility] Comment on above: Performed By: #### L 503.6030, L100.0100, L503.6550, L500.2500, L503.0106, L506.0200 ####[facility] [address] [place], [place], [address] Carbon dioxide, total [Moles /volume] in Central venous bloodOrdered By: Ivette Grimes on 07-23-2025 CO2 [Moles/Vol] 18.9 mmol/L Low 21.0-32.0 [facility] Chloride assayOrdered By: Regina Grimes on 07-23-2025 Chloride [Moles/Vol] 104 mmol/L 98-108 [facility] Eosinophil percentageOrdered By: Ivette Grimes on 07-23-2025 Eosinophils/100 WBC (Bld) 1.5 % 0-5 [facility] Erythrocyte distribution wid th ratioOrdered By: Ivette Grimes on 07-23-2025 Erythrocyte distribution width (RBC) [Ratio] 13.2 % 11.6-14.6 [facility] Erythrocyte distribution wid th standard deviationOrdered By: Ivette Grimes on 07-23-2025 Erythrocyte distribution width (RBC) [Ratio] 45.7 fl High 35.1-43.9 [facility] Ferritinon 07-23-2025 Ferritin [Mass/Vol] 291 ng/mL Normal 22-378 [facility] Comment on above: Performed By: #### L 503.6030, L100.0100, L503.6550, L500.2500, L503.0106, L506.0200 ####[facility] [address] [place], [address] Folate [Mass/volume] in Seru m or PlasmaOrdered By: Ivette Grimes on 07-23-2025 Folate [Mass/Vol] 12.60 ng/mL 4.60-34.80 [facility] Folates,Serum (Folic Acid)on 07-23-2025 FOLATES,SERUM 12.60 ng/mL Normal 4.60-34.80 [facility] Comment on above: Order Comment: N Performed By: #### L 503.6030, L100.0100, L503.6550, L500.2500, L503.0106, L506.0200 ####[facility] [address] [place], [address] Glomerular filtration rate ( GFR) estimation/1.73 sq m using serum, plasma, or whole bOrdered By: Ivette Grimes on 07-23-2025 GFR/1.73 sq M.predicted among non-blacks MDRD (S/P/Bld) [Vol rate/Area] 82 mL/min/{1.73_m2} >60 [facility] Hematocrit Auto (Bld) [Volum e fraction]Ordered By: Ivette Grimes on 07-23-2025 Hematocrit (Bld) [Volume fraction] 38.1 % 37-47 [facility] Hemoglobin measurementOrdere d By: Ivette Grimes on 07-23-2025 Hemoglobin (Bld) [Mass/Vol] 12.7 g/dL 12.0-15.0 [facility] Immature granulocytes/100 WB C Auto (Bld)Ordered By: Ivette Grimes on 07-23-2025 Immature granulocytes/100 WBC (Bld) 1.100 % High 0.0-0.9 [facility] Iron measurement (mass/mass) Ordered By: Ivette Grimes on 07-23-2025 Iron (Unsp spec) [Mass/Mass] 70 ug/dL 50-170 [facility] Iron+Iron Binding Capacityon 07-23-2025 Iron [Mass/Vol] 70 ug/dL Normal 50-170 [facility] Comment on above: Performed By: #### L 503.6030, L100.0100, L503.6550, L500.2500, L503.0106, L506.0200 ####[facility] [id number] [place], [address] IRON SATURATION 26.7 Normal 13-59 [facility] Comment on above: Performed By: #### L 503.6030, L100.0100, L503.6550, L500.2500, L503.0106, L506.0200 ####[facility] [address] [place], [address] TIBC 261 ug/dL Normal 250-450 [facility] Comment on above: Performed By: #### L 503.6030, L100.0100, L503.6550, L500.2500, L503.0106, L506.0200 ####[facility] [address] [place], [address] UIBC 191 ug/dL Low 228-428 [facility] [facility] Comment on above: Performed By: #### L 503.6030, L100.0100, L503.6550, L500.2500, L503.0106, L506.0200 ####[facility] [address] [place], [address] MCV (mean corpuscular volume ) determinationOrdered By: Ivette Grimes on 07-23-2025 MCV (RBC) [Entitic vol] 94.5 fL 81-99 [facility] Mean corpuscular hemoglobin (MCH) determinationOrdered By: Ivette Grimes on 07-23-2025 MCH (RBC) [Entitic mass] 31.5 pg 27.0-32.0 [facility] Monocyte percentageOrdered B y: Ivette Grimes on 07-23-2025 Monocytes/100 WBC (Bld) 5.0 % 0-10 [facility] Neutrophil percentageOrdered By: Ivette Grimes on 07-23-2025 Neutrophils/100 WBC (Bld) 62.0 % 47-70 [facility] No Panel InformationOrdered By: Ivette Grimes on 07-23-2025 191 ug/dL Low 228-428 [facility] Platelet countOrdered By: Regina muna Sydney on 07-23-2025 Platelets (Bld) [#/Vol] 240 10*3/uL 150-450 [facility] Potassium measurement (mass/ volume)Ordered By: Ivette Grimes on 07-23-2025 Potassium (Unsp spec) [Mass/Vol] 3.9 mmol/L 3.3-5.1 [facility] RBC Auto (Bld) [#/Vol]Ordere d By: Ivette Grimes on 07-23-2025 RBC (Bld) [#/Vol] 4.03 10*6/uL Low 4.2-5.4 [facility] Serum creatinine measurement (mass/volume)Ordered By: Ivette Grimes on 07-23-2025 Creatinine [Mass/Vol] 0.89 mg/dL 0.70-1.20 [facility] Serum glucose measurement (m ass/volume)Ordered By: Ivette Grimes on 07-23-2025 Glucose [Mass/Vol] 145 mg/dL High 70-99 [facility] Serum or plasma calcium sharron urement (mass/volume)Ordered By: Ivette Grimes on 07-23-2025 Calcium [Mass/Vol] 8.9 mg/dL 7.6-11.0 [facility] Serum or plasma ferritin jacob surement (mass/volume)Ordered By: Ivette Grimes on 07-23-2025 Ferritin [Mass/Vol] 291 ng/mL 22-378 [facility] Serum or plasma iron saturat ion measurement (mass fraction)Ordered By: Ivette Grimes on 07-23-2025 Iron saturation [Mass fraction] 26.7 % 13-59 [facility] Serum or plasma urea nitroge n measurement (mass/volume)Ordered By: Ivette Grimes on 07-23-2025 Urea nitrogen [Mass/Vol] 13 mg/dL 4-19 [facility] Sodium levelOrdered By: Reji Grimes on 07-23-2025 Sodium [Moles/Vol] 137 mmol/L 133-145 [facility] Vitamin B12on 07-23-2025 Cobalamin (Vitamin B12) [Mass/Vol] 679 pg/mL Normal 180-914 [facility] Comment on above: Performed By: #### L 503.6030, L100.0100, L503.6550, L500.2500, L503.0106, L506.0200 ####[facility] [address] [place], [address] Vitamin B12 ser/plasOrdered By: Ivette Grimes on 07-23-2025 Cobalamin (Vitamin B12) [Mass/Vol] 679 pg/mL 180-914 [facility] White blood cell (WBC) count Ordered By: Ivette Grimes on 07-23-2025 WBC (Bld) [#/Vol] 8.3 10*3/uL 4.4-11.0 [facility] CNPNon 07-22-2025 [facility] Telephone ([facility]) ---- TORI GRAY ([id number]) 1980 F Date Time Provider Department 07/22/25 [facility] During your visit today, we recorded the following information about you: Priscila France RN 07/22/2025 3:53 PM Signed Pt called in and asked to have the labs the provider ordered today faxed over to [facility]. Faxed labs to # [phone]. Priscila France RN Allergies As of Date: [...] tablet by mouth once daily. - Ipratropium Kiln (ATROVENT) 21 mcg (0.03 %) nasal spray [...] DM - Controlled E11.9 Insulin: No - Enqoresc-Su-Tty-Fe- FA tab Take 1 tablet by mouth [...] Routine general medical examination at [facility]*01/23/2010 12/06/2012 Class: Chronic Routine gynecological examination [Z01.419] 01/23/2010 02/22/2014 Class: Chronic Morbid obesity (HCC) [E66.01] 01/23/2010 06/07/2025 Lumbar Disc Disorder [M51.9] 02/16/2010 Routine general medical examination at [facility]*12/06/2012 02/22/2014 Anxiety [F41.9] 06/07/2014 Type 2 [...] R19.7] 11/22/2021 (more content not included)... Normal [facility] CNPN Telephone (FAMWS) ---- TORI GRAY ([id number]) 1980 F Date Time Provider Department 07/22/25 IVETTE GRIMES [facility] During your visit today, we recorded the [...] BLOOD COUNT AND DIFFERENTIAL [SQCBCDIF] Order #: [id number] FUTURE IRON AND TIBC [SQIRON] Order #: [id number] FUTURE VITAMIN B12 [SQB12] Order #: [id number] FUTURE FOLATE, SERUM [SQSERFOL] Order #: [id number] FUTURE FERRITIN [SQFERR] Order #: [id number] FUTURE BASIC METABOLIC PANEL [SQBMP] Order #: [id number] FUTURE Prescriptions as of 07/22/2025 - lisinopril [...] tablet by mouth once daily. - Ipratropium Kiln (ATROVENT) 21 mcg (0.03 %) nasal spray [...] DM - Controlled E11.9 Insulin: No - Fruubykf-Kl-Vva-Fe- FA tab Take 1 tablet by mouth [...] Routine general medical examination at [facility]*01/23/2010 12/06/2012 Class: Chronic Routine gynecological examination [Z01.419] 01/23/2010 02/22/2014 Class: Chronic Morbid obesity (HCC) [E66.01] 01/23/2010 06/07/2025 Lumbar Disc Disorder [M51.9] 02/16/2010 Routine general medical examination at [facility]*12/06/2012 02/22/2014 Anxiety [F41.9] 06/07/2014 Type 2 [...] [I10] 08/16 (more content not included)... Normal [facility] CBC W/Diff, Automatedon 07-05 PATH REV Reviewed Normal [facility] Comment on above: Result Comment: SEE REPORT IN PATIENT'S EMR AMENDED REPORT 07/21/25 1334 PATH REV previously reported as: March Performed By: #### L 100.0100, L500.2500 ####[facility] [address] [place], [place], [address] CNOVon 07-15-2025 CNOV Office Visit (FAMPWS) ---- TORI GRAY ([id number]) 1980 F Date Time Provider Department 07/15/25 9:20 AM LUBNA DE LA GARZA During your visit today, we recorded the following information about you: Temperature Pulse Blood pressure Weight 97.6 degrees 73/minute 128/76 122 kg Lubna De La Garza APRN.[employer] PROFESSION[employer] 07/15/2025 9:54 AM Signed This is a 45 year old female who presents today with: Patient presents with: Hospital F/U: [facility] DX Sepsis, UTI D/C 07/07 HISTORY OF PRESENT ILLNESS: Tori Gray is a 45 year old female. Patient presents with: Hospital F/U: [facility] DX Sepsis, UTI D/C 07/07 The patient [...] 1 tablet by mouth once daily. Ipratropium Kiln (ATROVENT) 21 mcg (0.03 %) nasal spray [...] Test blo (more content not included)... Normal [facility] TORI [facility] ([id number]) 1980 F Date Time Provider Department 07/15/25 LUBNA DE LA GARZA [facility] During your visit today, we recorded the following information about you: Lubna De La Garza APRN.[facility] 07/15/2025 9:30 AM Signed Patient was seen at [facility] on August 03, 2025 for sepsis, complicated urinary tract infection. Patient presented to the emergency room with some confusion and found to have hyperosmolar nonketotic state as well as sepsis secondary to urinary tract infection in addition to acute kidney injury. She was seen by the greenhouse technician. Acute metabolic encephalopathy secondary to sepsis and [...] tablet by mouth once daily. - Ipratropium Kiln (ATROVENT) 21 mcg (0.03 %) nasal spray [...] DM - Controlled E11.9 Insulin: No - Mxovehgo-Th-Gkb-Fe- FA tab Take 1 tablet by mouth [...] general medical examination at [facility]*01/23/2010 12/06/2012 Class: Chronic Routine gynecological examination [Z01.419] 01/23/2010 02/22/2014 Class: Chronic Morbid obesity (HCC) [E66.01] 01/23/2010 06/07/2025 Lumbar Disc Disorder [M51.9] 02/16/2010 Routine general medical examination at [facility]*12/06/2012 02/22/2014 Anxiety [F41.9] 08 (more content not included)... Normal [facility] Culture, Blood (WB)on 2024 CUB Blood cultures x2, from two different sites No growth in 5 days. Normal [facility] Comment on above: Performed By: #### M 200.1000 ####[facility] [address] [place], [place], [address] CUB Blood cultures x2, from two different sites No growth in 5 days. Normal [facility] Comment on above: Performed By: #### M 200.1000 ####[facility] [address] [place], [place], [address] Orthopedic Visit Reporton Orthopedic Visit Report Normal [facility] Absolute lymphocyte countOrd ered By: Jose Juan Reinoso on 07-07-2025 Lymphocytes Auto (Unsp spec) [#/Vol] 1.80 10*3/uL 0.83-4.51 [facility] Absolute neutrophil countOrd ered By: Jose Juan Reinoso on 07-07-2025 Neutrophils (Bld) [#/Vol] 3.9 10*3/uL 2.0-7.7 [facility] Anion gap in Serum or Plasma Ordered By: Jose Juan Reinoso on 07-07-2025 Anion gap [Moles/Vol] 12 mmol/L 03-18 [facility] BUN/creatinine ratioOrdered By: Jose Juan Reinoso on 07-07-2025 Urea nitrogen/Creatinine [Mass ratio] 16.6 mg/mg - [facility] Basic Metabolic Profile (BMP )on 07-07-2025 BUN/CRE 16.6 RATIO Normal 08-23 [facility] Comment on above: Performed By: #### L 100.0100, L500.2500 ####[facility] [address] [place], [address] Calcium [Mass/Vol] 8.8 mg/dL Normal 7.6-11.0 [facility] Comment on above: Performed By: #### L 100.0100, L500.2500 ####[facility] [address] [place], [address] Chloride [Moles/Vol] 105 mmol/L Normal 98-108 [facility] Comment on above: Performed By: #### L 100.0100, L500.2500 ####[facility] [address] [place], [address] CO2 [Moles/Vol] 18.4 mmol/L Low 21.0-32.0 [facility] Comment on above: Performed By: #### L 100.0100, L500.2500 ####[facility] [address] [place], [address] Creatinine [Mass/Vol] 1.14 mg/dL Normal 0.70-1.20 [facility] Comment on above: Performed By: #### L 100.0100, L500.2500 ####[facility] [address] [place], [address] ECRCL 88.48 ml/min Normal 50-250 [facility] Comment on above: Performed By: #### L 100.0100, L500.2500 ####[facility] [address] [place], [address] GAP 12 Normal 5-15 [facility] Comment on above: Performed By: #### L 100.0100, L500.2500 ####[facility] [address] [place], [address] GFR/1.73 sq M.predicted among non-blacks MDRD (S/P/Bld) [Vol rate/Area] 61 mL/min/{1.73_m2} Normal >60 [facility] Comment on above: Result Comment: mL/m in/1.73m2 CKD-EPI Creatinine Equation (2020) Performed By: #### L 100.0100, L500.2500 ####[facility] [address] [place], [address] Glucose [Mass/Vol] 223 mg/dL High 70-99 [facility] Comment on above: Performed By: #### L 100.0100, L500.2500 ####[facility] [address] [place], [address] Potassium [Moles/Vol] 3.5 mmol/L Normal 3.3-5.1 [facility] Comment on above: Performed By: #### L 100.0100, L500.2500 ####[facility] [address] [place], [address] Sodium [Moles/Vol] 136 mmol/L Normal 133-145 [facility] Comment on above: Performed By: #### L 100.0100, L500.2500 ####[facility] [address] [place], [address] Urea nitrogen [Mass/Vol] 19 mg/dL Normal 4-19 [facility] Comment on above: Performed By: #### L 100.0100, L500.2500 ####[facility] [address] [place], [address] Bedside Glucoseon 07-07-2025 FINGERSTICK GLU 202 mg/dL High 74-106 [facility] Comment on above: Result Comment: SANTA KISER OF PATIENT CARE PER NURSING PROTOCOL Performed By: #### L 501.080 ####[facility] [address] [place], [address] Blood band neutrophil count as percentage of total leukocytesOrdered By: Jose Juan Reinoso on 07-07-2025 Band form neutrophils/100 WBC (Bld) 3 % 0-5 [facility] Blood blasts/100 leukocytesO rdered By: Jose Juan Reinoso on 07-07-2025 Blasts/100 WBC (Bld) 1 % Critically high 0-0 [facility] Blood eosinophils/100 leukoc ytesOrdered By: Jose Juan Reinoso on 07-07-2025 Eosinophils/100 WBC (Bld) 2 % 0-5 [facility] Blood lymphocytes/100 leukoc ytesOrdered By: Jose Juan Reinoso on 07-07-2025 Lymphocytes/100 WBC (Bld) 29 % 19-41 [facility] Blood metamyelocytes/100 facundo kocytesOrdered By: Jose Juan Reinoso on 07-07-2025 Metamyelocytes/100 WBC (Bld) 1 % 0-1 [facility] Blood monocytes/100 leukocyt esOrdered By: Jose Juan Reinoso on 07-07-2025 Monocytes/100 WBC (Bld) 4 % 0-10 [facility] Blood segmented neutrophils/ 100 leukocytesOrdered By: Jose Juan Reinoso on 07-07-2025 Segmented neutrophils/100 WBC (Bld) 60 % 47-70 [facility] Carbon dioxide, total [Moles /volume] in Central venous bloodOrdered By: Jose Juan Reinoso on 07-07-2025 CO2 [Moles/Vol] 18.4 mmol/L Low 21.0-32.0 [facility] Chloride assayOrdered By: Rachelle Reinoso on 07-07-2025 Chloride [Moles/Vol] 105 mmol/L 98-108 [facility] Electrolyte Panelon 07-07-20 25 CL Normal 98-108 [facility] Comment on above: Result Comment: [place] julian via OM: Ordered Performed By: #### L 501.5294 ####[facility] [address] [place], [address] CO2 Normal 21.0-32.0 [facility] Comment on above: Result Comment: [place] julian via OM: Ordered Performed By: #### L 501.5294 ####[facility] [address] [place], [address] GAP Normal 5-15 [facility] Comment on above: Result Comment: Canc elled via OM: MD Ordered Performed By: #### L 501.5294 ####[facility] [address] [place], [address] Potassium Normal 3.3-5.1 [facility] Comment on above: Result Comment: Canc elled via OM: MD Ordered Performed By: #### L 501.5294 ####[facility] [address] [place], [address] Electrolyte Panel Normal 133-145 [facility] Comment on above: Result Comment: Canc elled via OM: MD Ordered Performed By: #### L 501.5294 ####[facility] [address] [place], [address] Erythrocyte distribution wid th ratioOrdered By: Jose Juan Reinoso on 07-07-2025 Erythrocyte distribution width (RBC) [Ratio] 14.1 % 11.6-14.6 [facility] Erythrocyte distribution wid th standard deviationOrdered By: Jose Juan Reinoso on 07-07-2025 Erythrocyte distribution width (RBC) [Ratio] 50.4 fl High 35.1-43.9 [facility] Erythrocyte morphology asses smentOrdered By: Jose Juan Reinoso on 07-07-2025 RBC morphology finding Nom (Bld) NORM C+C NORMAL NORM C&C [facility] Glomerular filtration rate ( GFR) estimation/1.73 sq m using serum, plasma, or whole bOrdered By: Jose Juan Reinoso on 07-07-2025 GFR/1.73 sq M.predicted among non-blacks MDRD (S/P/Bld) [Vol rate/Area] 61 mL/min/{1.73_m2} >60 [facility] Comment on above: mL/min/1.73m2 CKD-EP I Creatinine Equation (2020) Glucose measurement at bedsi deOrdered By: Brittany Harrison on 07-07-2025 Glucose [Mass/Vol] 202 mg/dL High 74-106 [facility] Comment on above: MANAGEMENT OF PATIEN T CARE PER NURSING PROTOCOL Hematocrit Auto (Bld) [Volum e fraction]Ordered By: Jose Juan Reinoso on 07-07-2025 Hematocrit (Bld) [Volume fraction] 27.7 % Low 37-47 [facility] Hemoglobin measurementOrdere d By: Jose Juan Reinoso on 07-07-2025 Hemoglobin (Bld) [Mass/Vol] 9.5 g/dL Low 12.0-15.0 [facility] MCV (mean corpuscular volume ) determinationOrdered By: Jose Juan Reinoso on 07-07-2025 MCV (RBC) [Entitic vol] 96.9 fL 81-99 [facility] Mean corpuscular hemoglobin (MCH) determinationOrdered By: Jose Juan Reinoso on 07-07-2025 MCH (RBC) [Entitic mass] 33.2 pg High 27.0-32.0 [facility] Mean corpuscular hemoglobin concentration (MCHC) determinationOrdered By: Jose Juan Reinoso on 07-07-2025 MCHC (RBC) [Mass/Vol] 34.3 g/dL 32-36 [facility] Mean platelet volume determi nationOrdered By: Jose Juan Reinoso on 07-07-2025 Platelet mean volume (Bld) [Entitic vol] 9.4 fL 6.2-12.0 [facility] Platelet countOrdered By: Rachelle Reinoso on 07-07-2025 Platelets (Bld) [#/Vol] 187 10*3/uL 150-450 [facility] Platelet estimateOrdered By: Jose Juan Reinoso on 07-07-2025 Platelets LM Ql (Bld) ADEQUATE ADEQ [facility] Potassium measurement (mass/ volume)Ordered By: Jose Juan Reinoso on 07-07-2025 Potassium (Unsp spec) [Mass/Vol] 3.5 mmol/L 3.3-5.1 [facility] RBC Auto (Bld) [#/Vol]Ordere d By: Jose Juan Reinoso on 07-07-2025 RBC (Bld) [#/Vol] 2.86 10*6/uL Low 4.2-5.4 [facility] Review by pathologistOrdered By: Jose Juan Reinoso on 07-07-2025 Pathologist review Christiano (Unsp spec) [Interp] March [facility] Pathologist review Christiano (Unsp spec) [Interp] Reviewed [facility] Serum creatinine measurement (mass/volume)Ordered By: Jose Juan Reinoso on 07-07-2025 Creatinine [Mass/Vol] 1.14 mg/dL 0.70-1.20 [facility] Serum glucose measurement (m ass/volume)Ordered By: Jose Juan Reinoso on 07-07-2025 Glucose [Mass/Vol] 223 mg/dL High 70-99 [facility] Serum or plasma calcium sharron urement (mass/volume)Ordered By: Jose Juan Reinoso on 07-07-2025 Calcium [Mass/Vol] 8.8 mg/dL 7.6-11.0 [facility] Serum or plasma urea nitroge n measurement (mass/volume)Ordered By: Jose Juan Reinoso on 07-07-2025 Urea nitrogen [Mass/Vol] 19 mg/dL 4-19 [facility] Sodium levelOrdered By: Artemio Reinoso on 07-07-2025 Sodium [Moles/Vol] 136 mmol/L 133-145 [facility] Total cell countOrdered By: Jose Juan Reinoso on 07-07-2025 Cells counted Molgen (Bld/Tiss) [#] 100 MANUAL DIFF [facility] Urine Cultureon 07-07-2025 URC Normal [facility] Comment on above: Performed By: #### M 100.2200 ####[facility] [address] [place], [address] White blood cell (WBC) count Ordered By: Jose Juan Reinoso on 07-07-2025 WBC (Bld) [#/Vol] 6.2 10*3/uL 4.4-11.0 [facility] Automated lymphocyte count a s percentage of total leukocytesOrdered By: Shana Mendoza on 07-06-2025 Lymphocytes/100 WBC Auto (Unsp spec) 16.7 % Low 19-41 [facility] Basophil percentageOrdered B y: Shana White on 07-06-2025 Basophils/100 WBC (Bld) 0.3 % 0-1 [facility] Bedside Glucoseon 07-06-2025 FINGERSTICK GLU 165 mg/dL High 74-106 [facility] Comment on above: Result Comment: SANTA GEMENT OF PATIENT CARE PER NURSING PROTOCOL Performed By: #### L 501.080 ####[facility] [address] [facility] [address] FINGERSTICK GLU 181 mg/dL High [facility]106 [facility] Comment on above: Result Comment: SANTA GEMENT OF PATIENT CARE PER NURSING PROTOCOL Performed By: #### L 501.080 ####[facility] [address] [facility] [address] FINGERSTICK GLU 138 mg/dL High 74-106 [facility] Comment on above: Result Comment: SANTA GEMENT OF PATIENT CARE PER NURSING PROTOCOL Performed By: #### L 501.080 ####[facility] [address] [place], [address] FINGERSTICK GLU 144 mg/dL High [address] [facility] Comment on above: Result Comment: SANTA GEMENT OF PATIENT CARE PER NURSING PROTOCOL Performed By: #### L 501.080 ####[facility] [address] [facility] [address] FINGERSTICK GLU 176 mg/dL High 74-106 [facility] Comment on above: Result Comment: SANTA GEMENT OF PATIENT CARE PER NURSING PROTOCOL Performed By: #### L 501.080 ####[facility] [address] [facility] [address] FINGERSTICK GLU 168 mg/dL High [facility]106 [facility] Comment on above: Result Comment: SANTA GEMENT OF PATIENT CARE PER NURSING PROTOCOL Performed By: #### L 501.080 ####[facility] [address] [place], [address] FINGERSTICK GLU 160 mg/dL High 74-106 [facility] Comment on above: Result Comment: SANTA GEMENT OF PATIENT CARE PER NURSING PROTOCOL Performed By: #### L 501.080 ####[facility] [address] [place], [address] FINGERSTICK GLU 187 mg/dL High 74-106 [facility] Comment on above: Result Comment: SANTA GEMENT OF PATIENT CARE PER NURSING PROTOCOL Performed By: #### L 501.080 ####[facility] [address] [place], [address] FINGERSTICK GLU 186 mg/dL High 74-106 [facility] Comment on above: Result Comment: SANTA GEMENT OF PATIENT CARE PER NURSING PROTOCOL Performed By: #### L 501.080 ####[facility] [address] [place], [address] FINGERSTICK GLU 156 mg/dL High 74-106 [facility] Comment on above: Result Comment: SANTA GEMENT OF PATIENT CARE PER NURSING PROTOCOL Performed By: #### L 501.080 ####[facility] [address], [address] FINGERSTICK GLU 169 mg/dL High 74-106 [facility] Comment on above: Result Comment: SANTA GEMENT OF PATIENT CARE PER NURSING PROTOCOL Performed By: #### L 501.080 ####[facility] [address], [address] FINGERSTICK GLU 164 mg/dL High 74-106 [facility] Comment on above: Result Comment: SANTA GEMENT OF PATIENT CARE PER NURSING PROTOCOL Performed By: #### L 501.080 ####[facility] [address] [place], [address] FINGERSTICK GLU 165 mg/dL High 74-106 [facility] Comment on above: Result Comment: SANTA GEMENT OF PATIENT CARE PER NURSING PROTOCOL Performed By: #### L 501.080 ####[facility] [address] [place], [address] FINGERSTICK GLU 211 mg/dL High 74-106 [facility] Comment on above: Result Comment: SANTA GEMENT OF PATIENT CARE PER NURSING PROTOCOL Performed By: #### L 501.080 ####[facility] [address] [place], [address] Bilirubin, totalOrdered By: Shana Mendoza on 07-06-2025 Bilirubin [Mass/Vol] 0.41 mg/dL 0.00-1.30 [facility] CBC W/Diff, Automatedon Absolute Lymph 1.07 X10 3/uL Normal 0.83-4.51 [facility] Comment on above: Performed By: #### L 100.0100, L501.9985 ####[facility] [address] [place], [address] Absolute Neut 4.7 X10 3/uL Normal 2.0-7.7 [facility] Comment on above: Performed By: #### L 100.0100, L501.9985 ####[facility] [address] [place], [address] Basophils/100 WBC (Bld) 0.3 % Normal 0-1 [facility] Comment on above: Performed By: #### L 100.0100, L501.9985 ####[facility] [address] [place], [address] Eosinophils/100 WBC (Bld) 1.4 % Normal 0-5 [facility] Comment on above: Performed By: #### L 100.0100, L501.9985 ####[facility] [address] [place], [address] Erythrocyte distribution width (RBC) [Ratio] 13.9 % Normal 11.6-14.6 [facility] Comment on above: Performed By: #### L 100.0100, L5.85 ####[facility] [address] [place], [address] Hematocrit (Bld) [Volume fraction] 25.4 % Low 37-47 [facility] Comment on above: Performed By: #### L 100.0100, L5.85 ####[facility] [address] [place], [address] Hemoglobin (Bld) [Mass/Vol] 8.7 g/dL Low 12.0-15.0 [facility] Comment on above: Performed By: #### L 100.0100, L5.85 ####[facility] [address] [place], [address] IG% 1.400 High 0.0-0.9 [facility] Comment on above: Result Comment: IG% - Immature Granulocytes (promyelocytes, myelocytes andmetamyelocytes) > 1% indicates that a LEFT SHIFT is Present. Performed By: #### L 100.0100, L5.85 ####[facility] [address] [place], [address] Lymphocytes/100 WBC (Bld) 16.7 % Low 19-41 [facility] Comment on above: Performed By: #### L 100.0100, L5.85 ####[facility] [address] [place], [address] MCH (RBC) [Entitic mass] 33.1 pg High 27.0-32.0 [facility] Comment on above: Performed By: #### L 100.0100, L5.9985 ####[facility] [address] [place], [address] MCHC (RBC) [Mass/Vol] 34.3 g/dL Normal 32-36 [facility] Comment on above: Performed By: #### L 100.0100, L501.9985 ####[facility] [address] [place], [address] MCV (RBC) [Entitic vol] 96.6 fL Normal 81-99 [facility] Comment on above: Performed By: #### L 100.0100, L501.9985 ####[facility] [address] [place], [address] Monocytes/100 WBC (Bld) 6.6 % Normal 0-10 [facility] Comment on above: Performed By: #### L 100.0100, L501.9985 ####[facility] [address] [place], [address] Neutrophils/100 WBC (Bld) 73.6 % High 47-70 [facility] Comment on above: Performed By: #### L 100.0100, L501.9985 ####[facility] [address] [place], [address] Nucleated RBC (Bld) [#/Vol] 0 10*3/uL Normal 0-5 [facility] Comment on above: Performed By: #### L 100.0100, L501.9985 ####[facility] [address] [place], [address] Platelet mean volume (Bld) [Entitic vol] 9.9 fL Normal 6.2-12.0 [facility] Comment on above: Performed By: #### L 100.0100, L501.9985 ####[facility] [address] [place], [address] Platelets (Bld) [#/Vol] 145 10*3/uL Low 150-450 [facility] Comment on above: Performed By: #### L 100.0100, L501.9985 ####[facility] [address] [place], [address] RBC (Bld) [#/Vol] 2.63 10*6/uL Low 4.2-5.4 [facility] Comment on above: Performed By: #### L 100.0100, L501.9985 ####[facility] [address] [place], [address] RDW SD 49.3 fl High 35.1-43.9 [facility] Comment on above: Performed By: #### L 100.0100, L501.9985 ####[facility] [address] [place], [address] WBC (Bld) [#/Vol] 6.4 10*3/uL Normal 4.4-11.0 [facility] Comment on above: Performed By: #### L 100.0100, L501.9985 ####[facility] [address] [place], [address] Comprehensive Metabolic Prof kyon 07-06-2025 Albumin [Mass/Vol] 3.1 g/dL Low 3.5-5.0 [facility] Comment on above: Order Comment: Comme nts: May add to ED labs Performed By: #### L 501.2300, L500.4050 ####[facility] [address] [place], [address] Albumin/Globulin [Mass ratio] 1.0 {ratio} Normal 0.9-2.4 [facility] Comment on above: Order Comment: Comme nts: May add to ED labs Performed By: #### L 501.2300, L500.4050 ####[facility] [address] [place], [address] ALK PHOS 102 U/L Normal 35-104 [facility] Comment on above: Order Comment: Comme nts: May add to ED labs Performed By: #### L 501.2300, L500.4050 ####[facility] [address] [place], [address] ALT [Catalytic activity/Vol] 23 U/L Normal <=34 [facility] Comment on above: Order Comment: Comme nts: May add to ED labs Performed By: #### L 501.2300, L500.4050 ####[facility] [address] [place], [address] AST [Catalytic activity/Vol] 15 U/L Normal <=31 [facility] Comment on above: Order Comment: Comme nts: May add to ED labs Performed By: #### L 501.2300, L500.4050 ####[facility] [address] [place], [address] Bilirubin [Mass/Vol] 0.41 mg/dL Normal 0.00-1.30 [facility] Comment on above: Order Comment: Comme nts: May add to ED labs Performed By: #### L 501.2300, L500.4050 ####[facility] [address] [place], [address] BUN/CRE 19.4 RATIO Normal 10-20 [facility] Comment on above: Order Comment: Comme nts: May add to ED labs Performed By: #### L 501.2300, L500.4050 ####[facility] [address] [place], [address] Calcium [Mass/Vol] 8.1 mg/dL Normal 7.6-11.0 [facility] Comment on above: Order Comment: Comme nts: May add to ED labs Performed By: #### L 501.2300, L500.4050 ####[facility] [address] [place], [address] Chloride [Moles/Vol] 106 mmol/L Normal 98-108 [facility] Comment on above: Order Comment: Comme nts: May add to ED labs Performed By: #### L 501.2300, L500.4050 ####[facility] [address] [place], [address] CO2 [Moles/Vol] 17.0 mmol/L Low 21.0-32.0 [facility] Comment on above: Order Comment: Comme nts: May add to ED labs Performed By: #### L 501.2300, L500.4050 ####[facility] [address] [place], [address] Creatinine [Mass/Vol] 1.47 mg/dL High 0.70-1.20 [facility] Comment on above: Order Comment: Comme nts: May add to ED labs Performed By: #### L 501.2300, L500.4050 ####[facility] [address] [place], [address] ECRCL 69.18 ml/min Normal 50-250 [facility] Comment on above: Order Comment: Comme nts: May add to ED labs Performed By: #### L 501.2300, L500.4050 ####[facility] [address] [place], [address] GAP 11 Normal 5-15 [facility] Comment on above: Order Comment: Comme nts: May add to ED labs Performed By: #### L 501.2300, L500.4050 ####[facility] [address] [place], [address] GFR/1.73 sq M.predicted among non-blacks MDRD (S/P/Bld) [Vol rate/Area] 45 mL/min/{1.73_m2} Low >60 [facility] Comment on above: Order Comment: Comme nts: May add to ED labs Result Comment: mL/m in/1.73m2 CKD-EPI Creatinine Equation (2020) Performed By: #### L 501.2300, L500.4050 ####[facility] [address] [place], [address] Globulin (S) [Mass/Vol] 3.3 g/dL Normal 2.2-4.2 [facility] Comment on above: Order Comment: Comme nts: May add to ED labs Performed By: #### L 501.2300, L500.4050 ####[facility] [address] [place], [address] Glucose [Mass/Vol] 195 mg/dL High 70-99 [facility] Comment on above: Order Comment: Comme nts: May add to ED labs Performed By: #### L 501.2300, L500.4050 ####[facility] [address] [place], [address] Potassium [Moles/Vol] 3.4 mmol/L Normal 3.3-5.1 [facility] Comment on above: Order Comment: Comme nts: May add to ED labs Performed By: #### L 501.2300, L500.4050 ####[facility] [address] [place], [address] Performed By: #### L 501.5294 ####[facility] [address] [place], [address] Sodium [Moles/Vol] 134 mmol/L Normal 133-145 [facility] Comment on above: Order Comment: Comme nts: May add to ED labs Performed By: #### L 501.2300, L500.4050 ####[facility] [address] [place], [address] T PROT 6.4 g/dL Normal 5.9-8.4 [facility] Comment on above: Order Comment: Comme nts: May add to ED labs Performed By: #### L 501.2300, L500.4050 ####[facility] [address] [place], [address] Urea nitrogen [Mass/Vol] 29 mg/dL High 4-19 [facility] Comment on above: Order Comment: Comme nts: May add to ED labs Performed By: #### L 501.2300, L500.4050 ####[facility] [address] [place], [address] Consultation - Intensiviston 07-06-2025 Consultation - Tour Narrator Normal [facility] Electrocardiogram reportOrde red By: Jackson Keenan on 07-06-2025 EKG study [facility] [address] [place] [address] 12 Lead EKG 07/05/25 1747 MR#: [id number] Acct: [id number] Name: TORI GRAY Rep #:[id number] : 1980 45 From: Jackson weiss MD [...] abnormality Abnormal ECG Confirmed by Jackson Keenan ([id number]), editorial clerk PRISCILA FERRERA ([id number]) on 07/06/2025 11:04:28 AM Referred By: Confirmed By: Jackson Keenan 07/06/25 1104 Date _ Jackson Keenan MD CC: Dr. Jose Juan Reinoso MD; Dr. Abhi Pina MD; Dr. Ivette Grimes MD ~ Signed [facility] Work Phone: Electrolyte Panelon 07-06-20 25 CL Normal 98-108 [facility] Comment on above: Result Comment: Canc eliel via OM: MD Ordered Performed By: #### L 501.5294 ####[facility] [address] [place], [address] CO2 Normal 21.0-32.0 [facility] Comment on above: Result Comment: Canc elled via OM: MD Ordered Performed By: #### L 5015294 ####[facility] [address] [place], [address] GAP Normal 5-15 [facility] Comment on above: Result Comment: Canc elled via OM: MD Ordered Performed By: #### L 5294 ####[facility] [address] [place], [address] Potassium Normal 3.3-5.1 [facility] Comment on above: Result Comment: Canc elled via OM: MD Ordered Performed By: #### L 5294 ####[facility] [address] [place], [address] Electrolyte Panel Normal 133-145 [facility] Comment on above: Result Comment: Canc elled via OM: MD Ordered Performed By: #### L 5015294 ####[facility] [address] [place], [address] CL Normal 98-108 [facility] Comment on above: Result Comment: Canc elled via OM: MD Ordered Performed By: #### L 501.5294 ####[facility] [address] [place], [address] CO2 Normal 21.0-32.0 [facility] Comment on above: Result Comment: Canc elled via OM: MD Ordered Performed By: #### L [id number] ####[facility] [address] [place], [address] GAP Normal 5-15 [facility] Comment on above: Result Comment: Canc elled via OM: MD Ordered Performed By: #### L 94 ####[facility] [address] [place], [address] Potassium Normal 3.3-5.1 [facility] Comment on above: Result Comment: Canc elled via OM: MD Ordered Performed By: #### L 5294 ####[facility] [address] [place], [address] Electrolyte Panel Normal 133-145 [facility] Comment on above: Result Comment: Canc elled via OM: MD Ordered Performed By: #### L 94 ####[facility] [address] [place], [address] CL Normal 98-108 [facility] Comment on above: Result Comment: Canc elled via OM: MD Ordered Performed By: #### L 94 ####[facility] [address] [place], [address] CO2 Normal 21.0-32.0 [facility] Comment on above: Result Comment: Canc elled via OM: MD Ordered Performed By: #### L 94 ####[facility] [address] [place], [address] GAP Normal 5-15 [facility] Comment on above: Result Comment: Canc elled via OM: MD Ordered Performed By: #### L 94 ####[facility] [address] [place], [address] Potassium Normal 3.3-5.1 [facility] Comment on above: Result Comment: Canc elled via OM: MD Ordered Performed By: #### L 5294 ####[facility] [address] [place], [address] Electrolyte Panel Normal 133-145 [facility] Comment on above: Result Comment: Canc elled via OM: MD Ordered Performed By: #### L 94 ####[facility] [address] [place], [address] CL Normal 98-108 [facility] Comment on above: Result Comment: Canc elled via OM: MD Ordered Performed By: #### L 501.5294 ####[facility] [address] [place], [address] CO2 Normal 21.0-32.0 [facility] Comment on above: Result Comment: Canc elled via OM: MD Ordered Performed By: #### L 501.5294 ####[facility] [address] [place], [address] GAP Normal 5-15 [facility] Comment on above: Result Comment: Canc elled via OM: MD Ordered Performed By: #### L 501.5294 ####[facility] [address] [place], [address] Potassium Normal 3.3-5.1 [facility] Comment on above: Result Comment: Canc elled via OM: MD Ordered Performed By: #### L [id number] ####[facility] [address] [place], [address] Electrolyte Panel Normal 133-145 [facility] Comment on above: Result Comment: Canc elled via OM: MD Ordered Performed By: #### L 501.5294 ####[facility] [address] [place], [address] CL Normal 98-108 [facility] Comment on above: Result Comment: DUPL ICATE-CMP ORDERED Performed By: #### L [id number] ####[facility] [address] [place], [address] CO2 Normal 21.0-32.0 [facility] Comment on above: Result Comment: DUPL ICATE-CMP ORDERED Performed By: #### L 5015294 ####[facility] [address] [place], [address] GAP Normal 5-15 [facility] Comment on above: Result Comment: DUPL ICATE-CMP ORDERED Performed By: #### L 501.5294 ####[facility] [address] [place], [address] Potassium Normal 3.3-5.1 [facility] Comment on above: Result Comment: DUPL ICATE-CMP ORDERED Performed By: #### L 501.5294 ####[facility] [address] [place], [address] Electrolyte Panel Normal 133-145 [facility] Comment on above: Result Comment: DUPL ICATE-CMP ORDERED Performed By: #### L 501.5294 ####[facility] [address] [place], [address] CL Normal 98-108 [facility] Comment on above: Result Comment: [place] elled via OM: Ordered Performed By: #### L 501.5294 ####[facility] [address] [place], [address] CO2 Normal 21.0-32.0 [facility] Comment on above: Result Comment: [place] elled via OM: Ordered Performed By: #### L 501.5294 ####[facility] [address] [place], [address] GAP Normal 5-15 [facility] Comment on above: Result Comment: [place] bearded via OM: Ordered Performed By: #### L 501.5294 ####[facility] [address] [place], [address] Potassium Normal 3.3-5.1 [facility] Comment on above: Result Comment: [place] elled via OM: Ordered Performed By: #### L 501.5294 ####[facility] [address] [place], [address] Electrolyte Panel Normal 133-145 [facility] Comment on above: Result Comment: [place] julian via OM: Ordered Performed By: #### L 501.5294 ####[facility] [address] [place], [address] Chloride [Moles/Vol] 104 mmol/L Normal 98-108 [facility] Comment on above: Performed By: #### L 501.5294 ####[facility] [address] [place], [address] CO2 [Moles/Vol] 17.4 mmol/L Low 21.0-32.0 [facility] Comment on above: Performed By: #### L 501.5294 ####[facility] [address] [place], [address] GAP 12 Normal 5-15 [facility] Comment on above: Performed By: #### L 501.5294 ####[facility] [address] [place], [address] Sodium [Moles/Vol] 133 mmol/L Normal 133-145 [facility] Comment on above: Performed By: #### L 501.5294 ####[facility] [address] [place], [address] Eosinophil percentageOrdered By: Shana Mendoza on 07-06-2025 Eosinophils/100 WBC (Bld) 1.4 % 0-5 [facility] Hemoglobin A1con 07-06-2025 HbA1c (Bld) [Mass fraction] 7.6 % High <=5.6 [facility] Comment on above: Result Comment: Norm al < 5.7 % Prediabetic 5.7 - 6.4 % Diabetic >or= 6.5 % Please note range changes. Performed By: #### L 100.0100, L501.9985 ####[facility] [address] [place], [address] Hemoglobin A1c percentageOrd ered By: Shana Mendoza on 07-06-2025 HbA1c (Bld) [Mass fraction] 7.6 % High <5.7 [facility] Comment on above: Normal < 5.7 % Predi abetic 5.7 - 6.4 % Diabetic >or= 6.5 % Please note range changes. Immature granulocytes/100 WB C Auto (Bld)Ordered By: Shana Mendoza on 07-06-2025 Immature granulocytes/100 WBC (Bld) 1.400 % High 0.0-0.9 [facility] Comment on above: IG% - Immature Granu locytes (promyelocytes, myelocytes and metamyelocytes) > 1% indicates that a LEFT SHIFT is Present. Iron+Iron Binding Capacityon 07-06-2025 TIBC 166 ug/dL Low 250-450 [facility] Comment on above: Performed By: #### L 503.6030, L501.5294 ####[facility] [address] [place], [place], [address] Laboratory - Chemistry and C hemistry - challengeOrdered By: Shnaa Mendoza on 07-06-2025 AST [Catalytic activity/Vol] 15 U/L <32 [facility] M8200.1000on 07-06-2025 M8200.1000 Negative Normal [facility] Comment on above: Performed By: #### M 8200.1000 ####[facility] [address] [place], [place], [address] Magnesiumon 07-06-2025 Magnesium [Mass/Vol] 1.9 mg/dL Normal 1.5-2.2 [facility] Comment on above: Order Comment: Comme nts: may add to ED labsTG1 1 F Performed By: #### L 501.5200 ####[facility] [address] [place], [place], [address] Magnesium measurement (mass/ volume)Ordered By: Shana Mendoza on 07-06-2025 Magnesium (Unsp spec) [Mass/Vol] 1.9 mg/dL 1.5-2.2 [facility] Monocyte percentageOrdered B y: Shana Mendoza on 07-06-2025 Monocytes/100 WBC (Bld) 6.6 % 0-10 [facility] Nasal methicillin resistant Staphylococcus aureus (MRSA) DNA detection by PCROrdered By: Shana Reji on 07-06-2025 MRSA DNA ALLYSON+probe Ql (Nose) [facility] No Panel InformationOrdered By: Shana Reji on 07-06-2025 15 U/L <32 [facility] Nucleated red blood cell per centageOrdered By: Shana Reji on 07-06-2025 Nucleated RBC/100 WBC (Bld) [Ratio] 0 % 0-5 [facility] Phosphoruson 07-06-2025 Phosphate [Mass/Vol] 2.4 mg/dL Low 2.7-4.5 [facility] Comment on above: Order Comment: Comme nts: May add to ED labs Performed By: #### L 501.2300, L500.4050 ####[facility] [address] [place], [address] Serum globulin measurementOr dered By: Shana Mendoza on 07-06-2025 Globulin (S) [Mass/Vol] 3.3 g/dL 2.2-4.2 [facility] Serum or plasma alanine arizmendi otransferase (ALT) measurementOrdered By: Shana Reji on 07-06-2025 ALT [Catalytic activity/Vol] 23 U/L <35 [facility] Serum or plasma albumin sharron urement (mass/volume)Ordered By: Shana Reji on 07-06-2025 Albumin [Mass/Vol] 3.1 g/dL Low 3.5-5.0 [facility] Serum or plasma albumin/glob ulin mass ratioOrdered By: Shana 07-06-2025 Albumin/Globulin [Mass ratio] 1.0 {ratio} 0.9-2.4 [facility] Serum or plasma alkaline toyin sphatase measurementOrdered By: Shana Reji on 07-06-2025 ALP [Catalytic activity/Vol] 102 U/L 35-104 [facility] Stool Occult Blood iFOBon STOB Negative Normal [facility] Comment on above: Performed By: #### M 100.7900 ####[facility] [address] [place], [address] Stool gastrointestinal hemog lobin detection by immunologic methodOrdered By: Shana Reji on 07-06-2025 Lower GI hemoglobin IA Ql (Stl) [facility] Total proteinOrdered By: Aut umn White on 07-06-2025 Protein [Mass/Vol] 6.4 g/dL 5.9-8.4 [facility] 12 Lead EKGon 07-05-2025 12 Lead EKG Normal [facility] Abdomen/Pelvis without Conto n 07-05-2025 Abdomen/Pelvis without Cont Normal [facility] Absolute lymphocyte countOrd ered By: Abhi Pina on 07-05-2025 Lymphocytes Auto (Unsp spec) [#/Vol] 0.99 10*3/uL 0.83-4.51 [facility] Absolute neutrophil countOrd ered By: [facility] Neutrophils (Bld) [#/Vol] 5.3 10*3/uL 2.0-7.7 [facility] Anion gap in Serum or Plasma Ordered By: Abhi Pina on 07-05-2025 Anion gap [Moles/Vol] 13 mmol/L 5-15 [facility] Automated lymphocyte count a s percentage of total leukocytesOrdered By: [facility] on 07-05-2025 Lymphocytes/100 WBC Auto (Unsp spec) 14.4 % Low 19-41 [facility] BUN/creatinine ratioOrdered By: [facility] on 07-05-2025 Urea nitrogen/Creatinine [Mass ratio] 20.7 mg/mg High 10-20 [facility] Basophil percentageOrdered B y: Abhi Pina on 07-05-2025 Basophils/100 WBC (Bld) 0.4 % 0-1 [facility] Bedside Glucoseon 07-05-2025 FINGERSTICK GLU 265 mg/dL High 74-106 [facility] Comment on above: Result Comment: SANTA GEMENT OF PATIENT CARE PER NURSING PROTOCOL Performed By: #### L 501.080 ####[facility] [address] [place], [address] FINGERSTICK GLU 321 mg/dL High 74-106 [facility] Comment on above: Result Comment: SANTA GEMENT OF PATIENT CARE PER NURSING PROTOCOL Performed By: #### L 501.080 ####[facility] [address] [place], [address] FINGERSTICK GLU 369 mg/dL High 74-106 [facility] Comment on above: Result Comment: SANTA GEMENT OF PATIENT CARE PER NURSING PROTOCOL Performed By: #### L 501.080 ####[facility] [address] [place], [address] FINGERSTICK GLU 459 mg/dL Invalid Interpretation Code 74-106 [facility] Comment on above: Result Comment: SANTA GEMENT OF PATIENT CARE PER NURSING PROTOCOL Performed By: #### L 501.080 ####[facility] [address] [place], [address] Beta-Hydroxbytyrateon 2024 BETA-HYDROXYBUT 0.1 mmol/L Normal 0.0-0.3 [facility] Comment on above: Performed By: #### L 501.6901, L501.5200 ####[facility] [address] [place], [address] Beta-hydroxybutyrateOrdered By: Abhi Pina on 07-05-2025 Beta hydroxybutyrate [Mass/Vol] 0.1 mmol/L 0.0-0.3 [facility] Bilirubin Test strip Ql (U)O rdered By: Abhi Pina on 07-05-2025 Bilirubin Ql (U) Negative Negative [facility] Bilirubin, totalOrdered By: Abhi Pina on 07-05-2025 Bilirubin [Mass/Vol] 0.57 mg/dL 0.00-1.30 [facility] Blood cultureOrdered By: Abhi Pina on 07-05-2025 Bacteria identified Cx Nom (Bld) No growth in 5 days. [facility] Bacteria identified Cx Nom (Bld) No growth in 5 days. [facility] CBC W/Diff, Automatedon Absolute Lymph 0.99 X10 3/uL Normal 0.83-4.51 [facility] Comment on above: Performed By: #### L 503.6005, L100.0100, L500.4050 ####[facility] [address] [place], [address] Absolute Neut 5.3 X10 3/uL Normal 2.0-7.7 [facility] Comment on above: Performed By: #### L 503.6005, L100.0100, L500.4050 ####[facility] [address] [place], [address] Basophils/100 WBC (Bld) 0.4 % Normal 0-1 [facility] Comment on above: Performed By: #### L 503.6005, L100.0100, L500.4050 ####[facility] [address] [place], [address] Eosinophils/100 WBC (Bld) 0.9 % Normal 0-5 [facility] Comment on above: Performed By: #### L 503.6005, L100.0100, L500.4050 ####[facility] [address] [place], [address] Erythrocyte distribution width (RBC) [Ratio] 13.8 % Normal 11.6-14.6 [facility] Comment on above: Performed By: #### L 503.6005, L100.0100, L500.4050 ####[facility] [address] [place], [address] Hematocrit (Bld) [Volume fraction] 28.2 % Low 37-47 [facility] Comment on above: Performed By: #### L 503.6005, L100.0100, L500.4050 ####[facility] [address] [place], [address] Hemoglobin (Bld) [Mass/Vol] 9.5 g/dL Low 12.0-15.0 [facility] Comment on above: Performed By: #### L 503.6005, L100.0100, L500.4050 ####[facility] [address] [place], [address] IG% 0.900 Normal 0.0-0.9 [facility] Comment on above: Result Comment: IG% - Immature Granulocytes (promyelocytes, myelocytes andmetamyelocytes) > 1% indicates that a LEFT SHIFT is Present. Performed By: #### L 503.6005, L100.0100, L500.4050 ####[facility] [address] [place], [address] Lymphocytes/100 WBC (Bld) 14.4 % Low 19-41 [facility] Comment on above: Performed By: #### L 503.6005, L100.0100, L500.4050 ####[facility] [address] [place], [address] MCH (RBC) [Entitic mass] 32.3 pg High 27.0-32.0 [facility] Comment on above: Performed By: #### L 503.6005, L100.0100, L500.4050 ####[facility] [address] [place], [address] MCHC (RBC) [Mass/Vol] 33.7 g/dL Normal 32-36 [facility] Comment on above: Performed By: #### L 503.6005, L100.0100, L500.4050 ####[facility] [address] [place], [address] MCV (RBC) [Entitic vol] 95.9 fL Normal 81-99 [facility] Comment on above: Performed By: #### L 503.6005, L100.0100, L500.4050 ####[facility] [address] [place], [address] Monocytes/100 WBC (Bld) 5.8 % Normal 0-10 [facility] Comment on above: Performed By: #### L 503.6005, L100.0100, L500.4050 ####[facility] [address] [place], [address] Neutrophils/100 WBC (Bld) 77.6 % High 47-70 [facility] Comment on above: Performed By: #### L 503.6005, L100.0100, L500.4050 ####[facility] [address] [place], [address] Nucleated RBC (Bld) [#/Vol] 0 10*3/uL Normal 0-5 [facility] Comment on above: Performed By: #### L 503.6005, L100.0100, L500.4050 ####[facility] [address] [place], [address] Platelet mean volume (Bld) [Entitic vol] 10.4 fL Normal 6.2-12.0 [facility] Comment on above: Performed By: #### L 503.6005, L100.0100, L500.4050 ####[facility] [address] [place], [address] Platelets (Bld) [#/Vol] 136 10*3/uL Low 150-450 [facility] Comment on above: Performed By: #### L 503.6005, L100.0100, L500.4050 ####[facility] [address] [place], [address] RBC (Bld) [#/Vol] 2.94 10*6/uL Low 4.2-5.4 [facility] Comment on above: Performed By: #### L 503.6005, L100.0100, L500.4050 ####[facility] [address] [place], [address] RDW SD 48.8 fl High 35.1-43.9 [facility] Comment on above: Performed By: #### L 503.6005, L100.0100, L500.4050 ####[facility] [address] [place], [address] WBC (Bld) [#/Vol] 6.9 10*3/uL Normal 4.4-11.0 [facility] Comment on above: Performed By: #### L 503.6005, L100.0100, L500.4050 ####[facility] [address] [place], [address] CO2 (BldV) [Moles/Vol]Ordere d By: Abhi Pina on 07-05-2025 CO2 [Moles/Vol] 17 mmol/L Low 23-33 [facility] Carbon dioxide, total [Moles /volume] in Central venous bloodOrdered By: Abhiasha Pina on 07-05-2025 CO2 [Moles/Vol] 15.9 mmol/L Low 21.0-32.0 [facility] Chest PA and Lateralon 07-05 Chest PA and Lateral Normal [facility] Chloride assayOrdered By: Ug asha Pina on 07-05-2025 Chloride [Moles/Vol] 101 mmol/L 98-108 [facility] Comprehensive Metabolic Prof ilon 07-05-2025 Albumin [Mass/Vol] 3.3 g/dL Low 3.5-5.0 [facility] Comment on above: Performed By: #### L 503.6005, L100.0100, L500.4050 ####[facility] [address] [place], [address] Albumin/Globulin [Mass ratio] 0.9 {ratio} Normal 0.9-2.4 [facility] Comment on above: Performed By: #### L 503.6005, L100.0100, L500.4050 ####[facility] [address] [place], [address] ALK PHOS 183 U/L High 35-104 [facility] Comment on above: Performed By: #### L 503.6005, L100.0100, L500.4050 ####[facility] [address] [place], [address] ALT [Catalytic activity/Vol] 26 U/L Normal <=34 [facility] Comment on above: Performed By: #### L 503.6005, L100.0100, L500.4050 ####[facility] [address] [place], [address] AST [Catalytic activity/Vol] 19 U/L Normal <=31 [facility] Comment on above: Performed By: #### L 503.6005, L100.0100, L500.4050 ####[facility] [address] [place], [address] Bilirubin [Mass/Vol] 0.57 mg/dL Normal 0.00-1.30 [facility] Comment on above: Performed By: #### L 503.6005, L100.0100, L500.4050 ####[facility] [address] [place], [address] BUN/CRE 20.7 RATIO High 10-20 [facility] Comment on above: Performed By: #### L 503.6005, L100.0100, L500.4050 ####[facility] [address] [place], [address] Calcium [Mass/Vol] 8.3 mg/dL Normal 7.6-11.0 [facility] Comment on above: Performed By: #### L 503.6005, L100.0100, L500.4050 ####[facility] [address] [place], [address] Chloride [Moles/Vol] 98 mmol/L Normal 98-108 [facility] Comment on above: Performed By: #### L 503.6005, L100.0100, L500.4050 ####[facility] [address] [place], [address] CO2 [Moles/Vol] 15.0 mmol/L Low 21.0-32.0 [facility] Comment on above: Performed By: #### L 503.6005, L100.0100, L500.4050 ####[facility] [address] [place], [address] Creatinine [Mass/Vol] 1.98 mg/dL High 0.70-1.20 [facility] Comment on above: Performed By: #### L 503.6005, L100.0100, L500.4050 ####[facility] [address] [place], [address] ECRCL 51.75 ml/min Normal 50-250 [facility] Comment on above: Performed By: #### L 503.6005, L100.0100, L500.4050 ####[facility] [address] [place], [address] GAP 15 Normal 5-15 [facility] Comment on above: Performed By: #### L 503.6005, L100.0100, L500.4050 ####[facility] [address] [place], [address] GFR/1.73 sq M.predicted among non-blacks MDRD (S/P/Bld) [Vol rate/Area] 32 mL/min/{1.73_m2} Low >60 [facility] Comment on above: Result Comment: mL/m in/1.73m2 CKD-EPI Creatinine Equation (2020) Performed By: #### L 503.6005, L100.0100, L500.4050 ####[facility] [address] [place], [address] Globulin (S) [Mass/Vol] 3.7 g/dL Normal 2.2-4.2 [facility] Comment on above: Performed By: #### L 503.6005, L100.0100, L500.4050 ####[facility] [address] [place], [address] Glucose [Mass/Vol] 533 mg/dL Invalid Interpretation Code 70-99 [facility] Comment on above: Result Comment: Crit ical Result(s) Called at: 1907 by:??MIGUELITO CEDILLO Results read back by same. Performed By: #### L 503.6005, L100.0100, L500.4050 ####[facility] [address] [place], [address] Potassium [Moles/Vol] 3.8 mmol/L Normal 3.3-5.1 [facility] Comment on above: Performed By: #### L 503.6005, L100.0100, L500.4050 ####[facility] [address] [place], [address] Sodium [Moles/Vol] 128 mmol/L Low 133-145 [facility] Comment on above: Performed By: #### L 503.6005, L100.0100, L500.4050 ####[facility] [address] [place], [address] T PROT 7.1 g/dL Normal 5.9-8.4 [facility] Comment on above: Performed By: #### L 503.6005, L100.0100, L500.4050 ####[facility] [address] [place], [address] Urea nitrogen [Mass/Vol] 41 mg/dL High 4-19 [facility] Comment on above: Performed By: #### L 503.6005, L100.0100, L500.4050 ####[facility] [address] [place], [address] Electrolyte Panelon 07-05-20 25 Chloride [Moles/Vol] 101 mmol/L Normal 98-108 [facility] Comment on above: Performed By: #### L 503.6030, L501.5294 ####[facility] [address] [place], [address] CO2 [Moles/Vol] 15.9 mmol/L Low 21.0-32.0 [facility] Comment on above: Performed By: #### L 503.6030, L501.5294 ####[facility] [address] [place], [address] GAP 13 Normal 5-15 [facility] Comment on above: Performed By: #### L 503.6030, L501.5294 ####[facility] [address] [place], [address] Potassium [Moles/Vol] 3.6 mmol/L Normal 3.3-5.1 [facility] Comment on above: Performed By: #### L 503.6030, L501.5294 ####[facility] [address] [place], [address] Sodium [Moles/Vol] 130 mmol/L Low 133-145 [facility] Comment on above: Performed By: #### L 503.6030, L501.5294 ####[facility] [address] [place], [address] Chloride [Moles/Vol] 101 mmol/L Normal 98-108 [facility] Comment on above: Performed By: #### L 501.5294 ####[facility] [address] [place], [address] CO2 [Moles/Vol] 17.3 mmol/L Low 21.0-32.0 [facility] Comment on above: Performed By: #### L 501.5294 ####[facility] [address] [place], [address] GAP 11 Normal 5-15 [facility] Comment on above: Performed By: #### L 501.5294 ####[facility] [address] [place], [place], [address] Potassium [Moles/Vol] 3.6 mmol/L Normal 3.3-5.1 [facility] Comment on above: Performed By: #### L 501.5294 ####[facility] [address] [place], [place], [address] Sodium [Moles/Vol] 130 mmol/L Low 133-145 [facility] Comment on above: Performed By: #### L 501.5294 ####[facility] [address] [place], [place], [address] Emergency Department Summary on 07-05-2025 Emergency Department Summary Normal [facility] Eosinophil percentageOrdered By: Abhi Pina on 07-05-2025 Eosinophils/100 WBC (Bld) 0.9 % 0-5 [facility] Erythrocyte distribution wid th ratioOrdered By: Abhi Pina on 07-05-2025 Erythrocyte distribution width (RBC) [Ratio] 13.8 % 11.6-14.6 [facility] Erythrocyte distribution wid th standard deviationOrdered By: Abhi Pina on 07-05-2025 Erythrocyte distribution width (RBC) [Ratio] 48.8 fl High 35.1-43.9 [facility] Ferritinon 07-05-2025 Ferritin [Mass/Vol] 601 ng/mL High 22-378 [facility] Comment on above: Performed By: #### L 503.6550, L501.7300 ####[facility] [address] [place], [place], [id number] Glomerular filtration rate ( GFR) estimation/1.73 sq m using serum, plasma, or whole bOrdered By: Abhi Pina on 07-05-2025 GFR/1.73 sq M.predicted among non-blacks MDRD (S/P/Bld) [Vol rate/Area] 32 mL/min/{1.73_m2} Low >60 [facility] Comment on above: mL/min/1.73m2 CKD-EP I Creatinine Equation (2020) [facility] deOrdered By: Shana Mendoza on 07-05-2025 Glucose [Mass/Vol] 265 mg/dL High 74-106 [facility] Comment on above: MANAGEMENT OF PATIEN T CARE PER NURSING PROTOCOL H AND P Exam - Hospitaliston 07-05-2025 H&P Exam - Hospitalist Normal [facility] Hematocrit Auto (Bld) [Volum e fraction]Ordered By: Abhi Pina on 07-05-2025 Hematocrit (Bld) [Volume fraction] 28.2 % Low 37-47 [facility] Hemoglobin measurementOrdere d By: Abhi Pina on 07-05-2025 Hemoglobin (Bld) [Mass/Vol] 9.5 g/dL Low 12.0-15.0 [facility] Immature granulocytes/100 WB C Auto (Bld)Ordered By: Abhi Pina on 07-05-2025 Immature granulocytes/100 WBC (Bld) 0.900 % 0.0-0.9 [facility] Comment on above: IG% - Immature Granu locytes (promyelocytes, myelocytes and metamyelocytes) > 1% indicates that a LEFT SHIFT is Present. Iron measurement (mass/mass) Ordered By: Shana Mendoza on 07-05-2025 Iron (Unsp spec) [Mass/Mass] 12 ug/dL Low 50-170 [facility] Ketones Test strip Ql (U)Ord ered By: Abhi Pina on 07-05-2025 Ketones Ql (U) Negative Negative [facility] Laboratory - Chemistry and C hemistry - challengeOrdered By: Abhi Pina on 07-05-2025 AST [Catalytic activity/Vol] 19 U/L <32 [facility] Lactic Acidon 07-05-2025 Lactate [Moles/Vol] 1.5 mmol/L Normal 0.0-2.0 [facility] Comment on above: Performed By: #### L 503.6005 ####[facility] [address] [place], [address] Lactate [Moles/Vol] 2.2 mmol/L Invalid Interpretation Code 0.0-2.0 [facility] Comment on above: Order Comment: Y Result Comment: Crit ical Result(s) Called at: 1907 by:??MIGUELITO CEDILLO Results read back by same. Performed By: #### L 503.6005, L100.0100, L500.4050 ####[facility] [address] [place], [place], [address] Lactic acid measurementOrder ed By: Abhi Pina on 07-05-2025 Lactate [Moles/Vol] 1.5 mmol/L 0.0-2.0 [facility] MCV (mean corpuscular volume ) determinationOrdered By: Abhi Pina on 07-05-2025 MCV (RBC) [Entitic vol] 95.9 fL 81-99 [facility] Magnesiumon 07-05-2025 Magnesium [Mass/Vol] 2.2 mg/dL Normal 1.5-2.2 [facility] Comment on above: Performed By: #### L 501.6901, L501.5200 ####[facility] [address] [place], [place], [id number] Magnesium measurement (mass/ volume)Ordered By: Abhi Pina on 07-05-2025 Magnesium (Unsp spec) [Mass/Vol] 2.2 mg/dL 1.5-2.2 [facility] Mean corpuscular hemoglobin (MCH) determinationOrdered By: Abhi Pina on 07-05-2025 MCH (RBC) [Entitic mass] 32.3 pg High 27.0-32.0 [facility] Mean corpuscular hemoglobin concentration (MCHC) determinationOrdered By: Abhiasha Pina on 07-05-2025 MCHC (RBC) [Mass/Vol] 33.7 g/dL 32-36 [facility] Mean platelet volume determi nationOrdered By: Abhi Pina on 07-05-2025 Platelet mean volume (Bld) [Entitic vol] 10.4 fL 6.2-12.0 [facility] Microscopic analysis of urin e for red blood cells (RBC)Ordered By: Abhi Pina on 07-05-2025 Microscopic analysis of urine for red blood cells (RBC) 5-10 SEEN /hpf 0-5 [facility] Monocyte percentageOrdered B y: Abhi Pina on 07-05-2025 Monocytes/100 WBC (Bld) 5.8 % 0-10 [facility] Mucus LM Ql (Urine sed)Order ed By: Abhi Pina on 07-05-2025 Mucus Ql (Urine sed) 0 SEEN /hpf [facility] Neutrophil percentageOrdered By: Abhi Pina on 07-05-2025 Neutrophils/100 WBC (Bld) 77.6 % High 47-70 [facility] Nitrite Test strip Ql (U)Ord ered By: Abhi Pina on 07-05-2025 Nitrite Ql (U) Negative Negative [facility] No Panel InformationOrdered By: Shana Mendoza on 07-05-2025 Unsaturated Iron Binding Capacity 154 ug/dL Low 228-428 [facility] 154 ug/dL Low 228-428 [facility] No Panel InformationOrdered By: Abhi Pina on 07-05-2025 Blood Gas Sample Site Not entered [facility] Blood Gas Specimen Type SHIRA [facility] Oxygen Delivery Device Not entered [facility] SHIRA [facility] Not entered [facility] Nucleated red blood cell per centageOrdered By: Abhi Pina on 07-05-2025 Nucleated RBC/100 WBC (Bld) [Ratio] 0 % 0-5 [facility] Osmolality, Serumon 07-05-20 25 OSMOLALITY,SER 307 mOsm/KG High 275-295 [facility] Comment on above: Performed By: #### L 503.6528, L501.7300 ####[facility] [address] [place], [place], [id number] Phosphoruson 07-05-2025 Phosphate [Mass/Vol] 3.0 mg/dL Normal 2.7-4.5 [facility] Comment on above: Performed By: #### L 266.4152 ####[facility] [address] [place], [place], [id number] Platelet countOrdered By: Min Pina on 07-05-2025 Platelets (Bld) [#/Vol] 136 10*3/uL Low 150-450 [facility] Potassium measurement (mass/ volume)Ordered By: Abhi Pina on 07-05-2025 Potassium (Unsp spec) [Mass/Vol] 3.6 mmol/L 3.3-5.1 [facility] Protein Test strip Ql (U)Ord ered By: Abhi Pina on 07-05-2025 Protein Ql (U) 30 mg/dl High Negative [facility] RBC Auto (Bld) [#/Vol]Ordere d By: Abhi Pina on 07-05-2025 RBC (Bld) [#/Vol] 2.94 10*6/uL Low 4.2-5.4 [facility] Serum creatinine measurement (mass/volume)Ordered By: Abhi Pina on 07-05-2025 Creatinine [Mass/Vol] 1.98 mg/dL High 0.70-1.20 [facility] Serum globulin measurementOr dered By: Abhi Pina on 07-05-2025 Globulin (S) [Mass/Vol] 3.7 g/dL 2.2-4.2 [facility] Serum glucose measurement (m ass/volume)Ordered By: Abhi Pina on 07-05-2025 Glucose [Mass/Vol] 533 mg/dL High 70-99 [facility] Comment on above: Critical Result(s) C alled at: 1907 by: MIGUELITO CEDILLO Results read back by same. Serum or plasma alanine arizmendi otransferase (ALT) measurementOrdered By: Abhi Pina on 07-05-2025 ALT [Catalytic activity/Vol] 26 U/L <35 [facility] Serum or plasma albumin sharron urement (mass/volume)Ordered By: Abhi Pina on 07-05-2025 Albumin [Mass/Vol] 3.3 g/dL Low 3.5-5.0 [facility] Serum or plasma albumin/glob ulin mass ratioOrdered By: Abhiasha Pina on 07-05-2025 Albumin/Globulin [Mass ratio] 0.9 {ratio} 0.9-2.4 [facility] Serum or plasma alkaline toyin sphatase measurementOrdered By: Abhi Pina on 07-05-2025 ALP [Catalytic activity/Vol] 183 U/L High 35-104 [facility] Serum or plasma calcium sharron urement (mass/volume)Ordered By: Abhi Pina on 07-05-2025 Calcium [Mass/Vol] 8.3 mg/dL 7.6-11.0 [facility] Serum or plasma ferritin jacob surement (mass/volume)Ordered By: Shana Mendoza on 07-05-2025 Ferritin [Mass/Vol] 601 ng/mL High 22-378 [facility] Serum or plasma iron saturat ion measurement (mass fraction)Ordered By: Shana Mendoza on 07-05-2025 Iron saturation [Mass fraction] 7.2 % Low 13-59 [facility] Comment on above: Previous reported re sult: 7.0 %Edited by: LIS on 07/06/25:0028 AMENDED REPORT 07/06/25 0028 IRON SATURATION previously reported as: 7.0 L % TIBC DID NOT CROSS OVER FROM [employer] Serum or plasma urea nitroge n measurement (mass/volume)Ordered By: Abhi Pina on 07-05-2025 Urea nitrogen [Mass/Vol] 41 mg/dL High 4-19 [facility] Sodium levelOrdered By: Abhi Pina on 07-05-2025 Sodium [Moles/Vol] 130 mmol/L Low 133-145 [facility] Squamous epithelial cells de tection in urine sediment by light microscopyOrdered By: Abhi Pina on 07-05-2025 Epithelial cells.squamous LM Ql (Urine sed) 5-10 SEEN /hpf 5-10 [facility] Total proteinOrdered By: Abhi Pina on 07-05-2025 Protein [Mass/Vol] 7.1 g/dL 5.9-8.4 [facility] Urinalysis, Completeon 07-05 BACTERIA 3+ /hpf Normal None Seen [facility] Comment on above: Order Comment: CLEAN CATCH Performed By: #### L 400.0001 ####[facility] [address] [place], [place], [id number] EPI,SQUAMOUS 5-10 SEEN Normal 5-10 [facility] Comment on above: Order Comment: CLEAN CATCH Performed By: #### L 400.0001 ####[facility] [address] [place], [address] RBC 5-10 SEEN Normal 0-5 [facility] Comment on above: Order Comment: CLEAN CATCH Performed By: #### L 400.0001 ####[facility] [address] [place], [address] WBC 10-25 SEEN Normal 0-5 [facility] Comment on above: Order Comment: CLEAN CATCH Performed By: #### L 400.0001 ####[facility] [address] [place], [address] Mucus Ql (Urine sed) 0 SEEN Normal [facility] Comment on above: Order Comment: CLEAN CATCH Performed By: #### L 400.0001 ####[facility] [address] [place], [place], [id number] Urine clarityOrdered By: Abhi Pina on 07-05-2025 Clarity (U) Sl. Cloudy Clear [facility] Urine color determinationOrd ered By: Abhi Pina on 07-05-2025 Color (U) Straw Yellow [facility] Urine cultureOrdered By: Abhi Pina on 07-05-2025 Bacteria identified Cx Nom (U) Escherichia coli Abnormal [facility] Urine glucose detectionOrder ed By: Abhi Pina on 07-05-2025 Glucose Ql (U) 1000 mg/dl High Normal [facility] Urine leukocyte esterase det ection by dipstickOrdered By: Abhi Pina on 07-05-2025 Leukocyte esterase Test strip Ql (U) 100 /ul High Negative [facility] Urine pHOrdered By: Abhi barry on 07-05-2025 pH (U) 6.0 [pH] 5.0 - 8.0 [facility] Urine sediment bacteria coun t by microscopy (number/high power field)Ordered By: Abhi Pina on 07-05-2025 Bacteria LM.HPF (Urine sed) [#/Area] 3 /[HPF] None Seen [facility] Urine specific gravity measu rementOrdered By: Abhi Pina on 07-05-2025 Specific gravity (U) [Rel density] 1.010 1.002-1.030 [facility] Urine urobilinogen measureme ntOrdered By: Abhi Pina on 07-05-2025 Urobilinogen Ql (U) Normal mg/dl Normal [facility] Venous Blood Gason Blood Gas Type SHIRA Normal [facility] Comment on above: Performed By: #### L 9000.0810 ####[facility] [address] [place], [address] CO2 [Moles/Vol] 17 mmol/L Low 23-33 [facility] Comment on above: Performed By: #### L 9000.0810 ####[facility] [address] [place], [address] HCO3 (Bld) [Moles/Vol] 16 mmol/L Low 22-26 [facility] Comment on above: Performed By: #### L 9000.0810 ####[facility] [address] [place], [address] O2 Delivery Dev Not entered [facility] Comment on above: Performed By: #### L 9000.0810 ####[facility] [address] [place], [address] SITE Not entered Normal [facility] Comment on above: Performed By: #### L 9000.0810 ####[facility] [address] [place], [address] VBG BE -10 mmol/L Low -1.0-3.5 [facility] Comment on above: Performed By: #### L 9000.0810 ####[facility] [address] [place], [address] VBG pCO2 31.6 mmHg Low 41-51 [facility] Comment on above: Performed By: #### L 9000.0810 ####[facility] [address] [place], [place], [address] VBG pH 7.32 Normal 7.32-7.42 [facility] Comment on above: Performed By: #### L 9000.0810 ####[facility] [address] [place], [place], [address] VBG PO2 77 mmHg High 25-40 [facility] Comment on above: Performed By: #### L 9000.0810 ####[facility] [address] [place], [place], [address] VBG SO2 94 High 50-70 [facility] Comment on above: Performed By: #### L 9000.0810 ####[facility] [address] [place], [place], [id number] Venous blood base excess jacob surementOrdered By: Abhi Pina on 07-05-2025 Base excess Calc (BldV) [Moles/Vol] -10 mmol/L Low -1.0-3.5 [facility] Venous blood bicarbonate jacob surementOrdered By: Abhi Pina on 07-05-2025 HCO3 (Bld) [Moles/Vol] 16 mmol/L Low 22-26 [facility] Venous blood oxygen saturati on measurementOrdered By: Abhi Pina on 07-05-2025 Oxygen saturation in Blood 94 % High 50-70 [facility] Venous blood pH measurementO rdered By: Abhi Pina on 07-05-2025 pH (BldV) 7.32 [pH] 7.32-7.42 [facility] Venous blood partial pressur e of carbon dioxide measurementOrdered By: Abhi Pina on 07-05-2025 CO2 (BldV) [Partial pressure] 31.6 mm[Hg] Low 41-51 [facility] Venous blood partial pressur e of oxygen measurementOrdered By: Abhi Pina on 07-05-2025 Oxygen (BldV) [Partial pressure] 77 mm[Hg] High 25-40 [facility] White blood cell (WBC) count Ordered By: Abhi Pina on 07-05-2025 WBC (Bld) [#/Vol] 6.9 10*3/uL 4.4-11.0 [facility] White blood cell countOrdere d By: Abhi Pina on 07-05-2025 White blood cell count 10-25 SEEN /hpf 0-5 [facility] Orthopedic Visit Reporton Orthopedic Visit Report Normal [facility] Bedside Glucoseon 06-23-2025 FINGERSTICK GLU 210 mg/dL High 74-106 [facility] Comment on above: Result Comment: [place] OF PATIENT CARE PER NURSING PROTOCOL Performed By: #### L 501.080 ####[facility] [address] [place], [address] Discharge Instructionon 06-05 Discharge Instruction Normal [facility] deOrdered By: Brett Quiroga on 06-23-2025 Glucose [Mass/Vol] 210 mg/dL High 74-106 [facility] Comment on above: MANAGEMENT OF PATIEN T CARE PER NURSING PROTOCOL MR/POSTOP.ANEon 06-23-2025 MR/POSTOP.ANE Normal [facility] Operative Reporton Operative Report Normal [facility] ,Urineon 06-23-2025 Beta HCG ( test) Ql (U) Negative Normal [facility] Comment on above: Result Comment: Very dilute urine specimens, as indicated by a low specificgravity, may not contain medical center representative levels of hCG.If is still suspected, a first morning urinespecimen should be collected 48 hours later and tested. Performed By: #### L 400.7600 ####[facility] [address] [place], [address] Urine testOrdered By: Woody Choudhary on 06-23-2025 HCG ( test) Ql (U) Negative [facility] Comment on above: Very dilute urine sp ecimens, as indicated by a low specificgravity, may not contain medical center representative levels of hCG. If is still suspected, a first morning urinespecimen should be collected 48 hours later and tested. Chiropractic Reporton 2024 Chiropractic Report Normal [facility] MR/PAT.ANEon 06-15-2025 MR/PAT.ANE Normal [facility] Electrocardiogram reportOrde red By: Vin Montes on 06-11-2025 EKG study [facility] Cardiovascular Services [address] [place] [address] 12 Lead EKG 06/10/25 1247 MR#: [id number] Acct: [id number] Name: TORI GRAY Rep #:[id number] : 1980 44 From: Vin Montes MD Attending Dr: Dr. Brett Quiroga MD Status: PRE [facility] Ordering Dr: Woody Choudhary MD Date: Location: [facility] Sex: [...] Confirmed by JYOTI SHEARER, VIN ([id number]), editorial clerk PRISCILA FERRERA ([id number]) on 06/11/2025 5:54:48 AM Referred By: Brett Quiroga Confirmed By: VIN MONTES MD 06/11/25 0554 Date _ Vin Montes MD CC: Dr. Woody Choudhary MD; Dr. Brett Quiroga MD; Dr. Ivette Grimes MD ~ Signed [facility] Work Phone: 12 Lead EKGon 06-10-2025 12 Lead EKG Normal [facility] LDL CHOLESTEROL DIRECT (FOR REMOTE [facility] USE)on 06-10-2025 [facility] LDL, Directon 06-10-2025 Cholesterol in LDL [Mass/Vol] 96 mg/dL Normal 0-99 [facility] Comment on above: Result Comment: Perf ormed at: CB - [facility] [address] [place], [place] [id number] Director: José Antonio Aldana PhD, Phone: [phone] Performed By: #### L 3300.4490, L526.9965 ####[facility] [address] [place], [place], [address] COMMENT TNP Normal . [facility] Comment on above: Performed By: #### L 3300.4490, L501.9985 ####[facility] [address] [place], [place], [id number] [facility] TORI GRAY ([id number]) 1980 F Date Time Provider Department 06/09/25 [facility] During your visit today, we recorded the following information about you: Nirmala Storey LPN 06/09/2025 10:21 AM Signed HgbA1C from [facility] 7.4 Ivette Grimes MD 06/09/2025 10:49 AM [...] long-term current use of insulin ([facility]) [E11.29, R80.9, Z79.4] Order(s):HBA1C (OUTSIDE) [1897777] Order #: [id number] semaglutide (OZEMPIC) 2 mg/dose (8 mg/3 mL) pen injectorInject 2 mg subcutaneously one time a week.Disp: 3 mLRfl: 5 LDL CHOLESTEROL DIRECT (FOR REMOTE [facility] USE) [SQRLDL] Order #: [id number] Prescriptions as of 06/18/2025 - omeprazole (PRILOSEC) [...] tablet by mouth once daily. - Ipratropium Kiln (ATROVENT) 21 mcg (0.03 %) nasal spray [...] DM - Controlled E11.9 Insulin: No - Zdqipebk-Ft-Ipp-Fe- FA tab Take 1 tablet by mouth [...] general medical examination at a [facility]*01/23/2010 12/06/2012 Class: Chronic Routine gynecological examination [...] [I10] 10 (more content not included)... Normal [facility] Cholesterol in LDL Direct as say [Mass/Vol]Ordered By: Ivette Grimes on 06-09-2025 Cholesterol in LDL [Mass/Vol] 96 mg/dL 0-99 [facility] Comment on above: Performed at: [place] [id number] Director: José Antonio Aldana PhD, Phone: [phone] HBA1C (OUTSIDE)on 06-09-2025 [facility] Hemoglobin A1con 06-09-2025 HbA1c (Bld) [Mass fraction] 7.4 % High <=5.6 [facility] Comment on above: Result Comment: Norm al < 5.7 % Prediabetic 5.7 - 6.4 % Diabetic >or= 6.5 % Please note range changes. Performed By: #### L 3300.7430, L501.9998 ####[facility] [address] [place], [address] Hemoglobin A1c percentageOrd ered By: Ivette Grimes on 06-09-2025 HbA1c (Bld) [Mass fraction] 7.4 % High <5.7 [facility] Comment on above: Normal < 5.7 % Predi abetic 5.7 - 6.4 % Diabetic >or= 6.5 % Please note range changes. Laboratory - Miscellaneous t estsOrdered By: Ivette Grimes on 06-09-2025 Service comment (Unsp spec) [Interp] TNP [facility] Comment on above: Test not performed CNOVon 06-07-2025 [facility] TORI GRAY ([id number]) 1980 F Date Time Provider Department 06/07/25 6:40 PM IVETTE GRIMES [facility] During your visit today, we recorded the [...] with Dr. Quiroga on June 23 at [facility]. - Keep your neurology appointment on [...] for June [address] Quiroga at [facility]. - Follow-up appointment with Dr. Camacho for [...] 1 tablet by mouth once daily. Ipratropium Kiln (ATROVENT) 21 mcg (0.03 %) nasal spray [...] 1 Each by INTRAUTERINE route as directed. Tpmquudq-Kr-Tcm-Fe- FA tab Take 1 tablet by mouth [...] blood sugar(s) (more content not included)... Normal [facility] Absolute lymphocyte countOrd ered By: HEALTH ASSESSMENT on 06-05-2025 Lymphocytes Auto (Unsp spec) [#/Vol] 2.43 10*3/uL 0.83-4.51 [facility] Absolute neutrophil countOrd ered By: HEALTH ASSESSMENT on 06-05-2025 Neutrophils (Bld) [#/Vol] 6.3 10*3/uL 2.0-7.7 [facility] Absolute nucleated red blood cell countOrdered By: HEALTH ASSESSMENT on 06-05-2025 Nucleated RBC (Bld) [#/Vol] 0.00 10*3/uL 0-5 [facility] Anion gap in Serum or Plasma Ordered By: HEALTH ASSESSMENT on 06-05-2025 Anion gap [Moles/Vol] 14 mmol/L 5-15 [facility] BUN/creatinine ratioOrdered By: HEALTH ASSESSMENT on 06-05-2025 Urea nitrogen/Creatinine [Mass ratio] 10.6 mg/mg 10-20 [facility] Bilirubin Test strip Ql (U)O rdered By: HEALTH ASSESSMENT on 06-05-2025 Bilirubin Ql (U) Negative Negative [facility] Bilirubin directOrdered By: HEALTH ASSESSMENT on 06-05-2025 Bilirubin.direct [Mass/Vol] 0.20 mg/dL 0.00-0.30 [facility] Bilirubin, totalOrdered By: HEALTH ASSESSMENT on 06-05-2025 Bilirubin [Mass/Vol] 0.51 mg/dL 0.00-1.30 [facility] CBC, Employeeon 06-05-2025 Absolute Lymph 2.43 X10 3/uL Normal 0.83-4.51 [facility] Comment on above: Performed By: #### L 400.0100, L100.0200, L500.2900 ####[facility] [address] [place], [address] Absolute Neut 6.3 X10 3/uL Normal 2.0-7.7 [facility] Comment on above: Performed By: #### L 400.0100, L100.0200, L500.2900 ####[facility] [address] [place], [address] Basophils/100 WBC (Bld) 0.9 % Normal 0-1 [facility] Comment on above: Performed By: #### L 400.0100, L100.0200, L500.2900 ####[facility] [address] [place], [address] Eosinophils/100 WBC (Bld) 1.8 % Normal 0-5 [facility] Comment on above: Performed By: #### L 400.0100, L100.0200, L500.2900 ####[facility] [address] [place], [address] Erythrocyte distribution width (RBC) [Ratio] 14.5 % Normal 11.6-14.6 [facility] Comment on above: Performed By: #### L 400.0100, L100.0200, L500.2900 ####[facility] [address] [place], [address] Hematocrit (Bld) [Volume fraction] 39.2 % Normal 37-47 [facility] Comment on above: Performed By: #### L 400.0100, L100.0200, L500.2900 ####[facility] [address] [place], [address] Hemoglobin (Bld) [Mass/Vol] 13.5 g/dL Normal 12.0-15.0 [facility] Comment on above: Performed By: #### L 400.0100, L100.0200, L500.2900 ####[facility] [address] [place], [address] Lymphocytes/100 WBC (Bld) 25.5 % Normal 19-41 [facility] Comment on above: Performed By: #### L 400.0100, L100.0200, L500.2900 ####[facility] [address] [place], [address] MCH (RBC) [Entitic mass] 32.4 pg High 27.0-32.0 [facility] Comment on above: Performed By: #### L 400.0100, L100.0200, L500.2900 ####[facility] [address] [place], [address] MCHC (RBC) [Mass/Vol] 34.4 g/dL Normal 32-36 [facility] Comment on above: Performed By: #### L 400.0100, L100.0200, L500.2900 ####[facility] [address] [place], [address] MCV (RBC) [Entitic vol] 94.0 fL Normal 81-99 [facility] Comment on above: Performed By: #### L 400.0100, L100.0200, L500.2900 ####[facility] [address] [place], [address] Monocytes/100 WBC (Bld) 3.6 % Normal 0-10 [facility] Comment on above: Performed By: #### L 400.0100, L100.0200, L500.2900 ####[facility] [address] [place], [address] Neutrophils/100 WBC (Bld) 66.2 % Normal 47-70 [facility] Comment on above: Performed By: #### L 400.0100, L100.0200, L500.2900 ####[facility] [address] [place], [address] NRBC # 0.00 10 3/uL Normal 0-5 [facility] Comment on above: Performed By: #### L 400.0100, L100.0200, L500.2900 ####[facility] [address] [place], [address] Nucleated RBC (Bld) [#/Vol] 0 10*3/uL Normal 0-5 [facility] Comment on above: Performed By: #### L 400.0100, L100.0200, L500.2900 ####[facility] [address] [place], [address] Platelet mean volume (Bld) [Entitic vol] 9.6 fL Normal 6.2-12.0 [facility] Comment on above: Performed By: #### L 400.0100, L100.0200, L500.2900 ####[facility] [address] [place], [address] Platelets (Bld) [#/Vol] 192 10*3/uL Normal 150-450 [facility] Comment on above: Performed By: #### L 400.0100, L100.0200, L500.2900 ####[facility] [address] [place], [address] RBC (Bld) [#/Vol] 4.17 10*6/uL Low 4.2-5.4 [facility] Comment on above: Performed By: #### L 400.0100, L100.0200, L500.2900 ####[facility] [address] [place], [address] RDW SD 49.7 fl High 35.1-43.9 [facility] Comment on above: Performed By: #### L 400.0100, L100.0200, L500.2900 ####[facility] [address] [place], [address] WBC (Bld) [#/Vol] 9.5 10*3/uL Normal 4.4-11.0 [facility] Comment on above: Performed By: #### L 400.0100, L100.0200, L500.2900 ####[facility] [address] [place], [address] Calculated very low density lipoprotein (VLDL) cholesterol measurementOrdered By: HEALTH ASSESSMENT on 06-05-2025 Calculated very low density lipoprotein (VLDL) cholesterol measurement 62 mg/dL High 5-40 [facility] Carbon dioxide, total [Moles /volume] in Central venous bloodOrdered By: HEALTH ASSESSMENT on 06-05-2025 CO2 [Moles/Vol] 17.5 mmol/L Low 21.0-32.0 [facility] Chloride assayOrdered By: HE ALTH ASSESSMENT on 06-05-2025 Chloride [Moles/Vol] 105 mmol/L 98-108 [facility] Employee Profileon LDH 188 U/L Normal 84-246 [facility] Comment on above: Performed By: #### L 400.0100, L100.0200, L500.2900 ####[facility] [address] [place], [address] Phosphate [Mass/Vol] 2.2 mg/dL Low 2.7-4.5 [facility] Comment on above: Performed By: #### L 400.0100, L100.0200, L500.2900 ####[facility] [address] [place], [address] URIC 6.9 mg/dL High 2.6-6.0 [facility] Comment on above: Result Comment: The drugs N-Acetylcysteine and Metamizole may falselydepress this assay. Performed By: #### L 400.0100, L100.0200, L500.2900 ####[facility] [address] [place], [address] Erythrocyte distribution wid th ratioOrdered By: HEALTH ASSESSMENT on 06-05-2025 Erythrocyte distribution width (RBC) [Ratio] 14.5 % 11.6-14.6 [facility] Erythrocyte distribution wid th standard deviationOrdered By: HEALTH ASSESSMENT on 06-05-2025 Erythrocyte distribution width (RBC) [Ratio] 49.7 fl High 35.1-43.9 [facility] Glomerular filtration rate ( GFR) estimation/1.73 sq m using serum, plasma, or whole bOrdered By: HEALTH ASSESSMENT on 06-05-2025 GFR/1.73 sq M.predicted among non-blacks MDRD (S/P/Bld) [Vol rate/Area] 94 mL/min/{1.73_m2} >60 [facility] Comment on above: mL/min/1.73m2 CKD-EP I Creatinine Equation (2020) Hematocrit Auto (Bld) [Volum e fraction]Ordered By: HEALTH ASSESSMENT on 06-05-2025 Hematocrit (Bld) [Volume fraction] 39.2 % 37-47 [facility] Hemoglobin measurementOrdere d By: HEALTH ASSESSMENT on 06-05-2025 Hemoglobin (Bld) [Mass/Vol] 13.5 g/dL 12.0-15.0 [facility] Ketones Test strip Ql (U)Ord ered By: HEALTH ASSESSMENT on 06-05-2025 Ketones Ql (U) Negative Negative [facility] LDL calc ser/plasOrdered By: HEALTH ASSESSMENT on 06-05-2025 Cholesterol in LDL [Mass/Vol] 92 mg/dL [facility] Comment on above: Vbsyyztkle=454-475 m g/dL & Higher Eock=688 mg/dL or greaterFriedwald Equation for LDL-C Laboratory - Chemistry and C hemistry - challengeOrdered By: HEALTH ASSESSMENT on 06-05-2025 AST [Catalytic activity/Vol] 41 U/L High <32 [facility] Lactate dehydrogenase (LDH) measurementOrdered By: HEALTH ASSESSMENT on 06-05-2025 LDH [Catalytic activity/Vol] 188 U/L 84-246 [facility] MCV (mean corpuscular volume ) determinationOrdered By: HEALTH ASSESSMENT on 06-05-2025 MCV (RBC) [Entitic vol] 94.0 fL 81-99 [facility] Mean corpuscular hemoglobin (MCH) determinationOrdered By: HEALTH ASSESSMENT on 06-05-2025 MCH (RBC) [Entitic mass] 32.4 pg High 27.0-32.0 [facility] Mean corpuscular hemoglobin concentration (MCHC) determinationOrdered By: HEALTH ASSESSMENT on 06-05-2025 MCHC (RBC) [Mass/Vol] 34.4 g/dL 32-36 [facility] Mean platelet volume determi nationOrdered By: HEALTH ASSESSMENT on 06-05-2025 Platelet mean volume (Bld) [Entitic vol] 9.6 fL 6.2-12.0 [facility] Neutrophil percentageOrdered By: HEALTH ASSESSMENT on 06-05-2025 Neutrophils/100 WBC (Bld) 66.2 % 47-70 [facility] Nitrite Test strip Ql (U)Ord ered By: HEALTH ASSESSMENT on 06-05-2025 Nitrite Ql (U) Negative Negative [facility] No Panel InformationOrdered By: HEALTH ASSESSMENT on 06-05-2025 41 U/L High <32 [facility] Nucleated red blood cell per centageOrdered By: HEALTH ASSESSMENT on 06-05-2025 Nucleated RBC/100 WBC (Bld) [Ratio] 0 % 0-5 [facility] Platelet countOrdered By: HE ALTH ASSESSMENT on 06-05-2025 Platelets (Bld) [#/Vol] 192 10*3/uL 150-450 [facility] Potassium measurement (mass/ volume)Ordered By: HEALTH ASSESSMENT on 06-05-2025 Potassium (Unsp spec) [Mass/Vol] 4.0 mmol/L 3.3-5.1 [facility] Protein Test strip Ql (U)Ord ered By: HEALTH ASSESSMENT on 06-05-2025 Protein Ql (U) 100 mg/dl High Negative [facility] RBC Auto (Bld) [#/Vol]Ordere d By: HEALTH ASSESSMENT on 06-05-2025 RBC (Bld) [#/Vol] 4.17 10*6/uL Low 4.2-5.4 [facility] Screening total cholesterol/ high density lipoprotein (HDL) cholesterol ratioOrdered By: HEALTH ASSESSMENT on 06-05-2025 Cholesterol.total/Choles terol in HDL [Mass ratio] 5.63 {ratio} [facility] Serum creatinine measurement (mass/volume)Ordered By: HEALTH ASSESSMENT on 06-05-2025 Creatinine [Mass/Vol] 0.80 mg/dL 0.70-1.20 [facility] Serum globulin measurementOr dered By: HEALTH ASSESSMENT on 06-05-2025 Globulin (S) [Mass/Vol] 3.3 g/dL 2.2-4.2 [facility] Serum glucose measurement (m ass/volume)Ordered By: HEALTH ASSESSMENT on 06-05-2025 Glucose [Mass/Vol] 210 mg/dL High 70-99 [facility] Serum or plasma alanine arizmendi otransferase (ALT) measurementOrdered By: HEALTH ASSESSMENT on 06-05-2025 ALT [Catalytic activity/Vol] 43 U/L High <35 [facility] Serum or plasma albumin sharron urement (mass/volume)Ordered By: HEALTH ASSESSMENT on 06-05-2025 Albumin [Mass/Vol] 4.2 g/dL 3.5-5.0 [facility] Serum or plasma albumin/glob ulin mass ratioOrdered By: HEALTH ASSESSMENT on 06-05-2025 Albumin/Globulin [Mass ratio] 1.3 {ratio} 0.9-2.4 [facility] Serum or plasma alkaline toyin sphatase measurementOrdered By: HEALTH ASSESSMENT on 06-05-2025 ALP [Catalytic activity/Vol] 84 U/L 35-104 [facility] Serum or plasma calcium sharron urement (mass/volume)Ordered By: HEALTH ASSESSMENT on 06-05-2025 Calcium [Mass/Vol] 8.8 mg/dL 7.6-11.0 [facility] Serum or plasma cholesterol in HDL measurement (mass/volume)Ordered By: HEALTH ASSESSMENT on 06-05-2025 Cholesterol in HDL [Mass/Vol] 33 mg/dL Low >40 [facility] Comment on above: National Cholesterol Education Program (NCEP) guidelines:<40 mg/dL: Low HDL-cholesterol (major risk factor for CHD)>= 60 mg/dL: High HDL-cholesterol (negative risk factor for CHD)HDL-cholesterol is affected by a number of factors, e.g. smoking, exercise, hormones, sex and age. Serum or plasma cholesterol measurement (mass/volume)Ordered By: HEALTH ASSESSMENT on 06-05-2025 Cholesterol [Mass/Vol] 187 mg/dL <201 [facility] Comment on above: Cholesterol level, D esirable <200 mg/dLBorderline high cholesterol 200-239 mg/dLHigh cholesterol >=240 mg/dLRecommendations of the NCEP Adult Treatment Panel for the following risk-cutoff thresholds for the [place] population. Serum or plasma urea nitroge n measurement (mass/volume)Ordered By: HEALTH ASSESSMENT on 06-05-2025 Urea nitrogen [Mass/Vol] 9 mg/dL 4-19 [facility] Serum or plasma uric acid me asurement (mass/volume)Ordered By: HEALTH ASSESSMENT on 06-05-2025 Urate [Mass/Vol] 6.9 mg/dL High 2.6-6.0 [facility] Comment on above: The drugs N-Acetylcy steine and Metamizole may falsely depress this assay. Sodium levelOrdered By: [facility] ASSESSMENT on 06-05-2025 Sodium [Moles/Vol] 137 mmol/L 133-145 [facility] Total proteinOrdered By: [facility] ASSESSMENT on 06-05-2025 Protein [Mass/Vol] 7.5 g/dL 5.9-8.4 [facility] Triglycerides measurementOrd ered By: HEALTH ASSESSMENT on 06-05-2025 Triglyceride [Mass/Vol] 310 mg/dL High <199 [facility] Comment on above: The drugs N-Acetylcy steine and Metamizole may falsely depress this assay. Normal range: <150 mg/dLBorderline High: 150-199 mg/dLHigh: 200-499 mg/dLVery High: >500 mg/dL Urinalysis, Employeeon 06-05 BILIRUBIN URINE Negative Normal Negative [facility] Comment on above: Order Comment: Urine , Random Performed By: #### L 400.0100, L100.0200, L500.2900 ####[facility] [address] [place], [address] Clarity (U) Sl. Cloudy Normal Clear [facility] Comment on above: Order Comment: Urine , Random Performed By: #### L 400.0100, L100.0200, L500.2900 ####[facility] [address] [place], [address] Color (U) Yellow Normal Yellow [facility] Comment on above: Order Comment: Urine , Random Performed By: #### L 400.0100, L100.0200, L500.2900 ####[facility] [address] [place], [address] GLUCOSE, UR Normal Normal Normal [facility] Comment on above: Order Comment: Urine , Random Performed By: #### L 400.0100, L100.0200, L500.2900 ####[facility] [address] [place], [address] KETONE UR Negative Normal Negative [facility] Comment on above: Order Comment: Urine , Random Performed By: #### L 400.0100, L100.0200, L500.2900 ####[facility] [address] [place], [address] LEUK ESTERASE 500 /ul Abnormal Negative [facility] Comment on above: Order Comment: Urine , Random Performed By: #### L 400.0100, L100.0200, L500.2900 ####[facility] [address] [place], [address] Nitrite Ql (U) Negative Normal Negative [facility] Comment on above: Order Comment: Urine , Random Performed By: #### L 400.0100, L100.0200, L500.2900 ####[facility] [address] [place], [address] OCCULT BLOOD-UR 25 /ul Abnormal Negative [facility] Comment on above: Order Comment: Urine , Random Performed By: #### L 400.0100, L100.0200, L500.2900 ####[facility] [address] [place], [address] pH UR 6.0 Normal 5.0 - 8.0 [facility] Comment on above: Order Comment: Urine , Random Performed By: #### L 400.0100, L100.0200, L500.2900 ####[facility] [address] [place], [address] PROT DIPSTX 100 mg/dl Abnormal Negative [facility] Comment on above: Order Comment: Urine , Random Performed By: #### L 400.0100, L100.0200, L500.2900 ####[facility] [address] [place], [address] SP.GR. DIPSTX 1.015 Normal 1.002-1.030 [facility] Comment on above: Order Comment: Urine , Random Performed By: #### L 400.0100, L100.0200, L500.2900 ####[facility] [address] [place], [address] UROBILI Normal Normal Normal [facility] Comment on above: Order Comment: Urine , Random Performed By: #### L 400.0100, L100.0200, L500.2900 ####[facility] [address] [place], [address] Urine clarityOrdered By: [facility] ASSESSMENT on 06-05-2025 Clarity (U) Sl. Cloudy Clear [facility] Urine color determinationOrd ered By: HEALTH ASSESSMENT on 06-05-2025 Color (U) Yellow Yellow [facility] Urine glucose detectionOrder ed By: HEALTH ASSESSMENT on 06-05-2025 Glucose Ql (U) Normal mg/dl Normal [facility] Urine leukocyte esterase det ection by dipstickOrdered By: HEALTH ASSESSMENT on 06-05-2025 Leukocyte esterase Test strip Ql (U) 500 /ul High Negative [facility] Urine pHOrdered By: HEALTH A SSESSMENT on 06-05-2025 pH (U) 6.0 [pH] 5.0 - 8.0 [facility] Urine specific gravity measu rementOrdered By: HEALTH ASSESSMENT on 06-05-2025 Specific gravity (U) [Rel density] 1.015 1.002-1.030 [facility] Urine urobilinogen measureme ntOrdered By: HEALTH ASSESSMENT on 06-05-2025 Urobilinogen Ql (U) Normal mg/dl Normal [facility] White blood cell (WBC) count Ordered By: HEALTH ASSESSMENT on 06-05-2025 WBC (Bld) [#/Vol] 9.5 10*3/uL 4.4-11.0 [facility] Chiropractic Reporton 2024 Chiropractic Report Normal [facility] Orthopedic Visit Reporton Orthopedic Visit Report Normal [facility] Chiropractic Reporton 2024 Chiropractic Report Normal [facility] Magnetic resonance imaging r eportOrdered By: Salazar Tyson on 04-19-2025 Study report [facility] Imaging Services [address] [place] [address] Upper Ext Joint Only(Routine) MR#: [id number] Acct: [id number] Name: GRAYROSIECHELSEY KELLY Rep #: [id number] : 1980 F 44 From: Moncho Tyson MD PCP: Dr. Ivette Grimes MD Status: GERMAIN CURTIS Study:Upper Ext Joint Only(Routine) Date of Exam: 04/17/25 Exam# [id number] Ordering Dr: Brett Quiroga MD PROCEDURE: UPPER [...] Quiroga MD; Dr. Ivette Grimes MD ~ Solution Lead: Signed [facility] Upper Ext Joint Only(Routine )on 04-17-2025 Upper Ext Joint Only(Routine) [facility] GRAYTORI ([id number]) 1980 F Date Time Provider Department 04/07/25 [...] tablet by mouth once daily. - Ipratropium Kiln (ATROVENT) 21 mcg (0.03 %) nasal spray [...] Each by INTRAUTERINE route as directed. - Dazey-3 Fatty Acids (FISH OIL) 500 mg cap Take 1 capsule by mouth once daily. - blood sugar diagnostic (BLOOD GLUCOSE TEST) test strip Test blood sugar(s) 1 times daily. Dx: Type 2 DM - Controlled E11.9 Insulin: Yes - Lancets lancets Test blood sugar(s) 1 times daily. Dx: Type 2 DM - Controlled E11.9 Insulin: No - Engprdsr-Py-Okp-Fe- FA tab Take 1 tablet by mouth [...] Routine general medical examination at [facility]*01/23/2010 12/06/2012 Class: Chronic Routine gynecological examination [Z01.419] 01/23/2010 02/22/2014 Class: Chronic Morbid Obesity [E66.01] 01/23/2010 Lumbar Disc Disorder [M51.9] 02/16/2010 Routine general medical examination at [facility]*12/06/2012 02/22/2014 Anxiety [F41.9] 06/07/2014 Type 2 [...] 09/04/2022 09/04/2022 (more content not included)... Normal [facility] Chiropractic Reporton 2024 Chiropractic Report Normal [facility] CNPNon 04-01-2025 CNPN Telephone (NEMAMN) ---- TORI GRAY ([id number]) 1980 F Date Time Provider Department 04/01/25 AMANDA ARTEAGA [facility] During your visit today, we recorded the following information about you: Nakia Caraballo RN 04/01/2025 12:47 PM Signed Botox approved until 11/03/25. Patient and scheduling made aware. She is a patient of [employer] but due to her being out on [...] tablet by mouth once daily. - Ipratropium Kiln (ATROVENT) 21 mcg (0.03 %) nasal spray [...] Each by INTRAUTERINE route as directed. - Dazey-3 Fatty Acids (FISH OIL) 500 mg cap Take 1 capsule by mouth once daily. - blood sugar diagnostic (BLOOD GLUCOSE TEST) test strip Test blood sugar(s) 1 times daily. Dx: Type 2 DM - Controlled E11.9 Insulin: Yes - Lancets lancets Test blood sugar(s) 1 times daily. Dx: Type 2 DM - Controlled E11.9 Insulin: No - Ltxynfhf-Kq-Bvd-Fe- FA tab Take 1 tablet by mouth [...] Routine general medical examination at [facility]*01/23/2010 12/06/2012 Class: Chronic Routine gynecological examination [Z01.419] 01/23/2010 02/22/2014 Class: Chronic Morbid Obesity [E66.01] 01/23/2010 Lumbar Disc Disorder [M51.9] 02/16/2010 Routine general medical examination at [facility]*12/06/2012 02/22/2014 Anxiety [F41.9] 06/07/2014 Type 2 [...] mellitus [Z86.39] (more content not included)... Normal [facility] Chiropractic Reporton 2024 [facility] Orthopedic Visit Report Normal [facility] CNPNon 03-19-2025 CNPN Telephone (NENMMN) ---- TORI GRAY ([id number]) 1980 F Date Time Provider Department 03/19/[address] [facility] During your visit today, we recorded [...] tablet by mouth once daily. - Ipratropium Kiln (ATROVENT) 21 mcg (0.03 %) nasal spray [...] Each by INTRAUTERINE route as directed. - Dazey-3 Fatty Acids (FISH OIL) 500 mg cap Take 1 capsule by mouth once daily. - blood sugar diagnostic (BLOOD GLUCOSE TEST) test strip Test blood sugar(s) 1 times daily. Dx: Type 2 DM - Controlled E11.9 Insulin: Yes - Lancets lancets Test blood sugar(s) 1 times daily. Dx: Type 2 DM - Controlled E11.9 Insulin: No - Ruhvspxh-Sz-Hwz-Fe- FA tab Take 1 tablet by mouth [...] Routine general medical examination at [facility]*01/23/2010 12/06/2012 Class: Chronic Routine gynecological examination [Z01.419] 01/23/2010 02/22/2014 Class: Chronic Morbid Obesity [E66.01] 01/23/2010 Lumbar Disc Disorder [M51.9] 02/16/2010 Routine general medical examination at [facility]*12/06/2012 02/22/2014 Anxiety [F41.9] 06/07/2014 Type 2 [...] 09/04/2022 11 (more content not included)... Normal [facility] Shoulder min 2 Viewson 03-11 Shoulder min 2 Views Normal [facility] Chiropractic Reporton 2024 Chiropractic Report Normal [facility] CNPNon 03-04-2025 CNPN Telephone (NEUSTF) ---- TORI GRAY ([id number]) 1980 F Date Time Provider Department 03/04/25 [...] tablet by mouth once daily. - Ipratropium Kiln (ATROVENT) 21 mcg (0.03 %) nasal spray [...] Each by INTRAUTERINE route as directed. - Dazey-3 Fatty Acids (FISH OIL) 500 mg cap Take 1 capsule by mouth once daily. - blood sugar diagnostic (BLOOD GLUCOSE TEST) test strip Test blood sugar(s) 1 times daily. Dx: Type 2 DM - Controlled E11.9 Insulin: Yes - Lancets lancets Test blood sugar(s) 1 times daily. Dx: Type 2 DM - Controlled E11.9 Insulin: No - Hyvlrhaf-Iw-Ehn-Fe- FA tab Take 1 tablet by mouth [...] Routine general medical examination at [facility]*01/23/2010 12/06/2012 Class: Chronic Routine gynecological examination [Z01.419] 01/23/2010 02/22/2014 Class: Chronic Morbid Obesity [E66.01] 01/23/2010 Lumbar Disc Disorder [M51.9] 02/16/2010 Routine general medical examination at [facility]*12/06/2012 02/22/2014 Anxiety [F41.9] 06/07/2014 Type 2 [...] headache [G43. (more content not included)... [facility]ER [facility] (HOMERO) ---- TORI GRAY ([id number]) 1980 F Date Time Provider Department 02/24/25 [...] tablet by mouth once daily. - Ipratropium Kiln (ATROVENT) 21 mcg (0.03 %) nasal spray [...] Each by INTRAUTERINE route as directed. - Dazey-3 Fatty Acids (FISH OIL) 500 mg cap Take 1 capsule by mouth once daily. - blood sugar diagnostic (BLOOD GLUCOSE TEST) test strip Test blood sugar(s) 1 times daily. Dx: Type 2 DM - Controlled E11.9 Insulin: Yes - Lancets lancets Test blood sugar(s) 1 times daily. Dx: Type 2 DM - Controlled E11.9 Insulin: No - Fcloadzc-Yr-Xzc-Fe- FA tab Take 1 tablet by mouth [...] Routine general medical examination at [facility]*01/23/2010 12/06/2012 Class: Chronic Routine gynecological examination [Z01.419] 01/23/2010 02/22/2014 Class: Chronic Morbid Obesity [E66.01] 01/23/2010 Lumbar Disc Disorder [M51.9] 02/16/2010 Routine general medical examination at [facility]*12/06/2012 02/22/2014 Anxiety [F41.9] 06/07/2014 Type 2 [...] 09/04/2022 Low (more content not included)... Normal [facility] Inital Evaluation (1) - PTon 02-08-2025 Inital Evaluation (1) - PT Normal [facility] Chiropractic Reporton 2024 Chiropractic Report [facility] Anion gap in Serum or Plasma Ordered By: Ivette Grimes on 01-28-2025 Anion gap [Moles/Vol] 11 mmol/L 5-15 [facility] BUN/creatinine ratioOrdered By: Ivette Grimes on 01-28-2025 Urea nitrogen/Creatinine [Mass ratio] 18.5 mg/mg 10-20 [facility] Basic Metabolic Profile (BMP )on 01-28-2025 BUN/CRE 18.5 RATIO Normal -20 [facility] Comment on above: Performed By: #### L 500.2500, L501.9985 ####[facility] [address] [place], [address] Calcium [Mass/Vol] 9.0 mg/dL Normal 7.6-11.0 [facility] Comment on above: Performed By: #### L 500.2500, L501.9985 ####[facility] [address] [place], [address] Chloride [Moles/Vol] 105 mmol/L Normal 98-108 [facility] Comment on above: Performed By: #### L 500.2500, L501.9985 ####[facility] [address] [place], [address] CO2 [Moles/Vol] 21.2 mmol/L Normal 21.0-32.0 [facility] Comment on above: Performed By: #### L 500.2500, L501.9985 ####[facility] [address] [place], [address] Creatinine [Mass/Vol] 0.77 mg/dL Normal 0.70-1.20 [facility] Comment on above: Performed By: #### L 500.2500, L501.9985 ####[facility] [address] [place], [address] GAP 11 Normal 5-15 [facility] Comment on above: Performed By: #### L 500.2500, L501.9985 ####[facility] [address] [place], [address] GFR/1.73 sq M.predicted among non-blacks MDRD (S/P/Bld) [Vol rate/Area] 98 mL/min/{1.73_m2} Normal >60 [facility] Comment on above: Result Comment: mL/m in/1.73m2 CKD-EPI Creatinine Equation (2020) Performed By: #### L 500.2500, L501.9985 ####[facility] [address] [place], [address] Glucose [Mass/Vol] 185 mg/dL High 70-99 [facility] Comment on above: Performed By: #### L 500.2500, L501.9985 ####[facility] [address] [place], [address] Potassium [Moles/Vol] 4.2 mmol/L Normal 3.3-5.1 [facility] Comment on above: Result Comment: Hemo lysis present, Results??could be affected.?? Performed By: #### L 500.2500, L501.9985 ####[facility] [address] [place], [address] Sodium [Moles/Vol] 137 mmol/L Normal 133-145 [facility] Comment on above: Performed By: #### L 500.2500, L501.9985 ####[facility] [address] [place], [address] Urea nitrogen [Mass/Vol] 14 mg/dL Normal 4-19 [facility] Comment on above: Performed By: #### L 500.2500, L501.9985 ####[facility] [address] [place], [address] CNPIilana 01-28-2025 GABRIELAN Telephone (FAMPWS) ---- TORI GRAY ([id number]) 1980 F Date Time Provider Department 01/28/25 IVETTE GRIMESWS During your visit today, we recorded the following information about you: Krystle Barnett RN 01/28/2025 4:54 PM Signed Prior Authorization Documentation Prior authorization requested for the following medication: Medication: Ozempic 1 mg (all though PA done in Aug 2024 and approved until Aug 2025 this needs PA due to dose change). Provider: [employer] Name: [employer] Phone number: [phone] Patient ID number: [id number] Pharmacy Name: [facility] Pharm[facility] Telephone number: [phone] Evon Philippe LPN 01/28/2025 4:56 PM Signed Electronic PA requested. Evon Philippe LPN 01/28/2025 4:58 PM Signed Unable to complete electronically. Will try on covermymeds Evon Philippe LPN 01/29/2025 9:07 AM Signed [employer] RESPONSE. [employer] does not handle this review. Please visit [employer] to start a prior authorization or fax information to [phone]. Please include all supporting chart notes. You may contact [employer] at [phone]. WILL FAX PA REQUEST TO NUMBER PROVIDED. [...] her know when it is ready for shredder picker. Allergies As of Date: 01/28/2025 Noted [...] tablet by mouth once daily. - Ipratropium Kiln (ATROVENT) 21 mcg (0.03 %) nasal spray [...] Each by INTRAUTERINE route as directed. - Dazey-3 Fatty Acids (FISH OIL) 500 mg cap Take 1 capsule by mouth once daily. - blood sugar diagnostic (BLOOD GLUCOSE TEST) test strip Test blood sugar(s) 1 times daily. Dx: Type 2 DM - Controlled E11.9 Insulin: Yes - Lancets lancets Test blood sugar(s) 1 times daily. Dx: Type 2 DM - Controlled E11.9 Insulin: No - Goaenhrb-Zl-Zgl-Fe- FA tab Take 1 tablet by mouth [...] DERMATOFIBROMA///BE N (more content not included)... [facility] TORI GRAY ([id number]) 1980 F Date Time Provider Department 01/28/25 IVETTE GRIMES [facility] During your visit today, we recorded the [...] tablet by mouth once daily. - Ipratropium Kiln (ATROVENT) 21 mcg (0.03 %) nasal spray [...] Each by INTRAUTERINE route as directed. - Dazey-3 Fatty Acids (FISH OIL) 500 mg cap Take 1 capsule by mouth once daily. - blood sugar diagnostic (BLOOD GLUCOSE TEST) test strip Test blood sugar(s) 1 times daily. Dx: Type 2 DM - Controlled E11.9 Insulin: Yes - Lancets lancets Test blood sugar(s) 1 times daily. Dx: Type 2 DM - Controlled E11.9 Insulin: No - Kkmxxjbq-Ug-Cdi-Fe- FA tab Take 1 tablet by mouth [...] general medical examination at [facility]*01/23/2010 12/06/2012 Class: Chronic Routine gynecological examination [Z01.419] 01/23/2010 02/22/2014 Class: Chronic Morbid Obesity [E66.01] 01/23/2010 Lumbar Disc Disorder [M51.9] 02/16/2010 Routine general medical examination at [facility]*12/06/2012 02/22/2014 Anxiety [F41.9] 06/07/2014 Type 2 [...] R19.7] 11/22/202109/04 (more content not included)... Normal [facility] Carbon dioxide, total [Moles /volume] in Central venous bloodOrdered By: Ivette Grimes on 01-28-2025 CO2 [Moles/Vol] 21.2 mmol/L 21.0-32.0 [facility] Chloride assayOrdered By: Regina Grimes on 01-28-2025 Chloride [Moles/Vol] 105 mmol/L 98-108 [facility] GFR/1.73 sq M.predicted jamari g non-blacks MDRD (S/P/Bld) [Vol rate/Area]Ordered By: Ivette Grimes on 01-28-2025 Estimated GFR (MDRD) Non-Af Amer 98 >60 [facility] Comment on above: mL/min/1.73m2 CKD-EP I Creatinine Equation (2020) Glomerular filtration rate ( GFR) estimation/1.73 sq m using serum, plasma, or whole bOrdered By: Ivette Grimes on 01-28-2025 GFR/1.73 sq M.predicted among non-blacks MDRD (S/P/Bld) [Vol rate/Area] 98 mL/min/{1.73_m2} >60 [facility] Comment on above: mL/min/1.73m2 CKD-EP I Creatinine Equation (2020) HBA1C (OUTSIDE)on 01-28-2025 [facility] Hemoglobin A1c percentageon 01-28-2025 HbA1c (Bld) [Mass fraction] 6.6 % Normal <=5.6 [facility] Comment on above: Performed By: #### L 500.2500, L501.9985 ####[facility] [address] [place], [address] Potassium (Unsp spec) [Mass/ Vol]Ordered By: Ivette Grimes on 01-28-2025 Potassium [Moles/Vol] 4.2 mmol/L 3.3-5.1 [facility] Comment on above: Hemolysis present, R esults could be affected. Potassium measurement (mass/ volume)Ordered By: Ivette Grimes on 01-28-2025 Potassium (Unsp spec) [Mass/Vol] 4.2 mmol/L 3.3-5.1 [facility] Comment on above: Hemolysis present, R esults could be affected. Serum creatinine measurement (mass/volume)Ordered By: Ivette Grimes on 01-28-2025 Creatinine [Mass/Vol] 0.77 mg/dL 0.70-1.20 [facility] Serum glucose measurement (m ass/volume)Ordered By: Ivette Grimes on 01-28-2025 Glucose [Mass/Vol] 185 mg/dL High 70-99 [facility] Serum or plasma calcium sharron urement (mass/volume)Ordered By: Ivette Grimes on 01-28-2025 Calcium [Mass/Vol] 9.0 mg/dL 7.6-11.0 [facility] Serum or plasma urea nitroge n measurement (mass/volume)Ordered By: Ivette Grimes on 01-28-2025 Urea nitrogen [Mass/Vol] 14 mg/dL 4-19 [facility] Sodium levelOrdered By: Reji harem Sydney on 01-28-2025 Sodium [Moles/Vol] 137 mmol/L 133-145 [facility] CNOVon 01-22-2025 CNOV Office Visit (FAMPWS) ---- TORI GRAY ([id number]) 1980 F Date Time Provider Department 01/22/25 3:40 PM [facility] visit today, we recorded [...] 1 tablet by mouth once daily. Ipratropium Kiln (ATROVENT) 21 mcg (0.03 %) nasal spray [...] 1 Each by INTRAUTERINE route as directed. Dazey-3 Fatty Acids (FISH OIL) 500 mg cap Take 1 capsule by mouth once daily. blood sugar diagnostic (BLOOD GLUCOSE TEST) test strip Test blood sugar(s) 1 times daily. Dx: Type 2 DM - Controlled E11.9 Insulin: Yes Lancets lancets Test blood sugar(s) 1 times daily. Dx: Type 2 DM - Controlled E11.9 Insulin: No Iqqhcyig-Au-Cdm-Fe- FA tab Take 1 tablet by mouth [...] Age of Onset Alcohol/Drug Mother Heart Father [place] Cancer Father PANCREATIC CANCER Diabetes Father Coronary [...] Controlled ( (more content not included)... Normal [facility] Hany 12-21-2024 GABRIELAN Telephone (FAMPWS) ---- TORI GRAY ([id number]) 1980 F Date Time Provider Department 12/21/24 [...] tablet by mouth once daily. - Ipratropium Kiln (ATROVENT) 21 mcg (0.03 %) nasal spray [...] Each by INTRAUTERINE route as directed. - Dazey-3 Fatty Acids (FISH OIL) 500 mg cap Take 1 capsule by mouth once daily. - blood sugar diagnostic (BLOOD GLUCOSE TEST) test strip Test blood sugar(s) 1 times daily. Dx: Type 2 DM - Controlled E11.9 Insulin: Yes - Lancets lancets Test blood sugar(s) 1 times daily. Dx: Type 2 DM - Controlled E11.9 Insulin: No - Nadeccml-Wz-Wbu-Fe- FA tab Take 1 tablet by mouth [...] general medical examination at [facility]*01/23/2010 12/06/2012 Class: Chronic Routine gynecological examination [Z01.419] 01/23/2010 02/22/2014 Class: Chronic Morbid Obesity [E66.01] 01/23/2010 Lumbar Disc Disorder [M51.9] 02/16/2010 Routine general medical examination at a [facility]*12/06/2012 02/22/2014 Anxiety [F41.9] 06/07/2014 Type 2 diabetes mellitus with microalbuminuria,*0 07/04/2018 Fatty liver [K76.0] 07/21/2018 08/05/2024 LETITIA (obstructive sleep apnea) [G47.33] 07/21/2018 Microalbuminuria [R80.9] 09/30/2018 09/04/2022 Obesity, Class III, BMI >= 40 [E66.01] 11/26/2019 09/04/2022 (more content not included)... Normal [facility] Albumin to globulin ratioOrd ered By: Jenni Jain on 12-11-2024 Albumin/Globulin [Mass ratio] 0.8 {ratio} Low 0.9-2.4 [facility] Bilirubin, totalOrdered By: Jenni Jain on 12-11-2024 Bilirubin [Mass/Vol] 0.80 mg/dL 0.20-1.00 [facility] Comment on above: For patients on eltr ombopag therapy, use of Dimension [place] TBIL is not recommended. Blood urea nitrogen (BUN)/cr eatinine ratioOrdered By: Jenni Jain on 12-11-2024 Urea nitrogen/Creatinine [Mass ratio] 11.5 mg/mg 10-20 [facility] CNOVon 12-11-2024 CNOV Office Visit (FAMWS) ---- TORI GRAY ([id number]) 1980 F Date Time Provider Department 12/11/24 11:00 AM JENNI JAIN [facility] During your visit today, we recorded the following information about you: Temperature Pulse Respiration Blood pressure 97.8 degrees 72/minute 16/minute 138/74 Weight 125.7 kg Jenni Jain APRN.[employer] 12/11/2024 12:26 PM Signed This is a [...] 1 tablet by mouth once daily. Ipratropium Kiln (ATROVENT) 21 mcg (0.03 %) nasal spray [...] 1 Each by INTRAUTERINE route as directed. Dazey-3 Fatty Acids (FISH OIL) 500 mg cap Take 1 capsule by mouth once daily. blood sugar diagnostic (BLOOD GLUCOSE TEST) test strip Test blood sugar(s) 1 times daily. Dx: Type 2 DM - Controlled E11.9 Insulin: Yes Lancets lancets Test blood sugar(s) 1 times daily. Dx: Type 2 DM - Controlled E11.9 Insulin: No Bijvywio-It-Xsn-Fe- FA tab Take 1 tablet by mouth once daily. No current facility-administer ed medications for this visit. FAMILY HISTORY Problem Relation Age of Onset Alcohol/Drug Mother Heart Father [place] Cancer Father PANCREATIC CANCER Diabetes Father Coronary [...] NECK: Negat (more content not included)... [facility] Telephone (JAIMEWS) ---- TORI GRAY ([id number]) 1980 F Date Time Provider Department 12/11/24 IVETTE GRIMES During your visit today, we recorded the following information about you: Brittney Meredith RN 12/11/2024 8:23 AM Signed Patient calling to make appt for evaluation of respiratory sx's that began approx 4 weeks ago. Pt states she feels she may have bronchitis or pneumonia. States she was at [facility] ER last month due to dizziness, vision [...] tablet by mouth once daily. - Ipratropium Kiln (ATROVENT) 21 mcg (0.03 %) nasal spray [...] Each by INTRAUTERINE route as directed. - Dazey-3 Fatty Acids (FISH OIL) 500 mg cap Take 1 capsule by mouth once daily. - blood sugar diagnostic (BLOOD GLUCOSE TEST) test strip Test blood sugar(s) 1 times daily. Dx: Type 2 DM - Controlled E11.9 Insulin: Yes - Lancets lancets Test blood sugar(s) 1 times daily. Dx: Type 2 DM - Controlled E11.9 Insulin: No - Vurwmdwz-Dd-Ncx-Fe- FA tab Take 1 tablet by mouth [...] Routine general medical examination at [facility]*01/23/2010 12/06/2012 Class: Chronic Routine gynecological examination [Z01.419] 01/23/2010 02/22/2014 Class: Chronic Morbid Obesity [E66.01] 01/23/2010 Lumbar Disc Disorder [M51.9] 02/16/2010 Routine general medical examination at [facility]*12/06/2012 02/22/2014 Anxiety [F41.9] 06/07/2014 Type 2 diabetes mellitus with microalbuminuria,*0 07/04/2018 Fatty liver [K76.0] 07/21/2018 08/05/20 (more content not included)... [facility] ---- TORI GRAY ([id number]) 1980 F Date Time Provider Department 12/11/24 JENNI JAIN [facility] During your visit today, we recorded the following information about you: Jenni Jain APRN.[facility] 12/11/2024 2:18 PM Signed Can you please call the patient and let her know that I am still waiting for x-ray results from [facility]. I went ahead and sent in a [...] tablet by mouth once daily. - Ipratropium Kiln (ATROVENT) 21 mcg (0.03 %) nasal spray [...] Each by INTRAUTERINE route as directed. - Dazey-3 Fatty Acids (FISH OIL) 500 mg cap Take 1 capsule by mouth once daily. - blood sugar diagnostic (BLOOD GLUCOSE TEST) test strip Test blood sugar(s) 1 times daily. Dx: Type 2 DM - Controlled E11.9 Insulin: Yes - Lancets lancets Test blood sugar(s) 1 times daily. Dx: Type 2 DM - Controlled E11.9 Insulin: No - Yfnojybu-Fy-Nnr-Fe- FA tab Take 1 tablet by mouth [...] SACROILIITIS [ (more content not included)... Normal [facility] Carbon dioxide measurementOr dered By: Jenni Jain on 12-11-2024 CO2 [Moles/Vol] 23.0 mmol/L 21.0-32.0 [facility] Chest PA and Lateralon 12-11 Chest PA and Lateral Normal [facility] Chloride measurementOrdered By: Jenni Jain on 12-11-2024 Chloride [Moles/Vol] 107 mmol/L 98-107 [facility] Comprehensive Metabolic Prof ilon 12-11-2024 Albumin [Mass/Vol] 3.7 g/dL Normal 3.2-5.0 [facility] Comment on above: Performed By: #### L 500.4050 ####[facility] [address] [place], [place], [id number] Albumin/Globulin [Mass ratio] 0.8 {ratio} Low 0.9-2.4 [facility] Comment on above: Performed By: #### L 500.4050 ####[facility] [address] [place], [address] ALK P 84 U/L Normal 45-117 [facility] Comment on above: Performed By: #### L 500.4050 ####[facility] [address] [place], [address] ALT [Catalytic activity/Vol] 53 U/L Normal 13-56 [facility] Comment on above: Performed By: #### L 500.4050 ####[facility] [address] [place], [address] AST [Catalytic activity/Vol] 40 U/L High 15-37 [facility] Comment on above: Performed By: #### L 500.4050 ####[facility] [address] [place], [address] Bilirubin [Mass/Vol] 0.80 mg/dL Normal 0.20-1.00 [facility] Comment on above: Result Comment: For patients on eltrombopag therapy, use of Dimension [place] TBIL is not recommended. Performed By: #### L 500.4050 ####[facility] [address] [place], [address] BUN/CRE 11.5 RATIO Normal 10-20 [facility] Comment on above: Performed By: #### L 500.4050 ####[facility] [address] [place], [address] CA,Total 8.8 mg/dL Normal 8.5-10.1 [facility] Comment on above: Performed By: #### L 500.4050 ####[facility] [address] [place], [address] Chloride [Moles/Vol] 107 mmol/L Normal 98-107 [facility] Comment on above: Performed By: #### L 500.4050 ####[facility] [address] [place], [address] CO2 [Moles/Vol] 23.0 mmol/L Normal 21.0-32.0 [facility] Comment on above: Performed By: #### L 500.4050 ####[facility] [address] [place], [address] Creatinine [Mass/Vol] 0.78 mg/dL Normal 0.55-1.02 [facility] Comment on above: Result Comment: The validity of the calculated GFR GFRAA in patients over70 years has not been determined. Clinical correlation isessential. Performed By: #### L 500.4050 ####[facility] [address] [place], [address] EST GFR - AA 104 mL/min Normal >60 [facility] Comment on above: Result Comment: Afri can [place] GFR Calc Performed By: #### L 500.4050 ####[facility] [address] [place], [address] GAP 7 Normal 5-15 [facility] Comment on above: Performed By: #### L 500.4050 ####[facility] [address] [place], [address] GFR/1.73 sq M.predicted among non-blacks MDRD (S/P/Bld) [Vol rate/Area] 86 mL/min/{1.73_m2} Normal >60 [facility] Comment on above: Result Comment: Non- GFR Calc Performed By: #### L 500.4050 ####[facility] [address] [place], [address] Globulin (S) [Mass/Vol] 4.5 g/dL High 2.2-4.2 [facility] Comment on above: Performed By: #### L 500.4050 ####[facility] [address] [place], [address] Glucose [Mass/Vol] 109 mg/dL High 74-106 [facility] Comment on above: Result Comment: Fast ing Glucose result from 100 to 125 mg/dLsuggests IMPAIRED HOMEOSTASIS per A.D.A. criteria. Performed By: #### L 500.4050 ####[facility] [address] [place], [address] Potassium [Moles/Vol] 3.9 mmol/L Normal 3.5-5.1 [facility] Comment on above: Performed By: #### L 500.4050 ####[facility] [address] [place], [address] Sodium [Moles/Vol] 137 mmol/L Normal 136-145 [facility] Comment on above: Performed By: #### L 500.4050 ####[facility] [address] [place], [address] T PROT 8.2 g/dL Normal 6.4-8.2 [facility] Comment on above: Performed By: #### L 500.4050 ####[facility] [address] [place], [address] Urea nitrogen [Mass/Vol] 9 mg/dL Normal 7-18 [facility] Comment on above: Performed By: #### L 500.4050 ####[facility] [address] [place], [address] Estimated glomerular filtrat ion rate (GFR) AmericanOrdered By: Jenni Jain on 12-11-2024 Estimated GFR (MDRD) Amer 104 mL/min >60 [facility] Comment on above: GFR Calc Glomerular filtration rate ( GFR) estimationOrdered By: Jenni Jain on 12-11-2024 Estimated GFR (MDRD) Non-Af Amer 86 mL/min >60 [facility] Comment on above: Non- GFR Calc GFR/1.73 sq M.predicted among non-blacks MDRD (S/P/Bld) [Vol rate/Area] 86 mL/min/{1.73_m2} >60 [facility] Comment on above: Non- GFR Calc Glucose measurementOrdered B y: Jenni Jain on 12-11-2024 Glucose [Mass/Vol] 109 mg/dL High 74-106 [facility] Comment on above: Fasting Glucose resu lt from 100 to 125 mg/dL suggests IMPAIRED HOMEOSTASIS per A.D.A. criteria. Laboratory - Chemistry and C hemistry - challengeOrdered By: Jenni Jain on 12-11-2024 AST [Catalytic activity/Vol] 40 U/L High 15-37 [facility] Potassium measurementOrdered By: Jenni Jain on 12-11-2024 Potassium [Moles/Vol] 3.9 mmol/L 3.5-5.1 [facility] Serum anion gap measurementO rdered By: Jenni Jain on 12-11-2024 Anion gap [Moles/Vol] 7 mmol/L 5-15 [facility] Serum globulin measurementOr dered By: Jenni Jain on 12-11-2024 Globulin (S) [Mass/Vol] 4.5 g/dL High 2.2-4.2 [facility] Serum or plasma alanine arizmendi otransferase (ALT) measurementOrdered By: Jenni Jain on 12-11-2024 ALT [Catalytic activity/Vol] 53 U/L 13-56 [facility] Serum or plasma albumin sharron urement (mass/volume)Ordered By: Jenni Jain on 12-11-2024 Albumin [Mass/Vol] 3.7 g/dL 3.2-5.0 [facility] Serum or plasma alkaline toyin sphatase measurementOrdered By: Jenni Jain on 12-11-2024 ALP [Catalytic activity/Vol] 84 U/L 45-117 [facility] Serum or plasma calcium sharron urement (mass/volume)Ordered By: Jenni Jain on 12-11-2024 Calcium [Mass/Vol] 8.8 mg/dL 8.5-10.1 [facility] Serum or plasma creatinine m easurement (mass/volume)Ordered By: Jenni Jain on 12-11-2024 Creatinine [Mass/Vol] 0.78 mg/dL 0.55-1.02 [facility] Comment on above: The validity of the calculated GFR & GFRAA in patients over 70 years has not been determined. Clinical correlation is essential. Serum or plasma urea nitroge n measurement (mass/volume)Ordered By: Jenni Jain on 12-11-2024 Urea nitrogen [Mass/Vol] 9 mg/dL 7-18 [facility] Sodium levelOrdered By: Ricco Jain on 12-11-2024 Sodium [Moles/Vol] 137 mmol/L 136-145 [facility] Total proteinOrdered By: John Jain on 12-11-2024 Protein [Mass/Vol] 8.2 g/dL 6.4-8.2 [facility] Urine Cultureon 11-12-2024 URC Mixed Gram Pos Gram Neg Org [place] Count 11,000-25,000 MIX[facility] Mixed contaminants. Submit a new specimen if indicated. Normal [facility] Comment on above: Performed By: #### M 100.2200 ####[facility] [address] [place], [address] 12 Lead EKGon 11-11-2024 12 Lead EKG Normal [facility] Absolute neutrophil countOrd ered By: Buddy Hall on 11-11-2024 Neutrophils (Bld) [#/Vol] 6.5 10*3/uL 2.0-7.7 [facility] Albumin to globulin ratioOrd ered By: Buddy Hall on 11-11-2024 Albumin/Globulin [Mass ratio] 0.6 {ratio} Low 0.9-2.4 [facility] Bacteria LM.HPF (Urine sed) [#/Area]Ordered By: Buddy Hall on 11-11-2024 Urine Bacteria RARE /hpf None Seen [facility] Basophil percentageOrdered B y: Buddy Hall on 11-11-2024 Basophils/100 WBC (Bld) 0.4 % 0-1 [facility] Bilirubin Test strip Ql (U)O rdered By: Buddy Hall on 11-11-2024 Bilirubin Ql (U) Negative Negative [facility] Bilirubin, totalOrdered By: Buddy Hall on 11-11-2024 Bilirubin [Mass/Vol] 0.90 mg/dL 0.20-1.00 [facility] Comment on above: For patients on eltr ombopag therapy, use of Dimension [place] TBIL is not recommended. Blood urea nitrogen (BUN)/cr eatinine ratioOrdered By: Buddy Hall on 11-11-2024 Urea nitrogen/Creatinine [Mass ratio] 9.8 mg/mg Low 10-20 [facility] CBC W/Diff, Automatedon Absolute Lymph 0.72 X10 3/uL Low 0.83-4.51 [facility] Comment on above: Performed By: #### L 100.0100, L500.4050 ####[facility] [address] [place], [address] Absolute Neut 6.5 X10 3/uL Normal 2.0-7.7 [facility] Comment on above: Performed By: #### L 100.0100, L500.4050 ####[facility] [address] [place], [address] Basophils/100 WBC (Bld) 0.4 % Normal 0-1 [facility] Comment on above: Performed By: #### L 100.0100, L500.4050 ####[facility] [address] [place], [address] Eosinophils/100 WBC (Bld) 1.2 % Normal 0-5 [facility] Comment on above: Performed By: #### L 100.0100, L500.4050 ####[facility] [address] [place], [address] Erythrocyte distribution width (RBC) [Ratio] 13.7 % Normal 11.6-14.6 [facility] Comment on above: Performed By: #### L 100.0100, L500.4050 ####[facility] [address] [place], [address] Hematocrit (Bld) [Volume fraction] 33.1 % Low 37-47 [facility] Comment on above: Performed By: #### L 100.0100, L500.4050 ####[facility] [address] [place], [address] Hemoglobin (Bld) [Mass/Vol] 11.4 g/dL Low 12.0-15.0 [facility] Comment on above: Performed By: #### L 100.0100, L500.4050 ####[facility] [address] [place], [address] IG% 1.200 High 0.0-0.9 [facility] Comment on above: Result Comment: IG% - Immature Granulocytes (promyelocytes, myelocytes andmetamyelocytes) > 1% indicates that a LEFT SHIFT is Present. Performed By: #### L 100.0100, L500.4050 ####[facility] [address] [place], [address] Lymphocytes/100 WBC (Bld) 9.2 % Low 19-41 [facility] Comment on above: Performed By: #### L 100.0100, L500.4050 ####[facility] [address] [place], [address] MCH (RBC) [Entitic mass] 31.8 pg Normal 27.0-32.0 [facility] Comment on above: Performed By: #### L 100.0100, L500.4050 ####[facility] [address] [place], [address] MCHC (RBC) [Mass/Vol] 34.4 g/dL Normal 32-36 [facility] Comment on above: Performed By: #### L 100.0100, L500.4050 ####[facility] [address] [place], [address] MCV (RBC) [Entitic vol] 92.5 fL Normal 81-99 [facility] Comment on above: Performed By: #### L 100.0100, L500.4050 ####[facility] [address] [place], [address] Monocytes/100 WBC (Bld) 4.2 % Normal 0-10 [facility] Comment on above: Performed By: #### L 100.0100, L500.4050 ####[facility] [address] [place], [address] Neutrophils/100 WBC (Bld) 83.8 % High 47-70 [facility] Comment on above: Performed By: #### L 100.0100, L500.4050 ####[facility] [address] [place], [address] Nucleated RBC (Bld) [#/Vol] 0 10*3/uL Normal 0-5 [facility] Comment on above: Performed By: #### L 100.0100, L500.4050 ####[facility] [address] [place], [address] Platelet mean volume (Bld) [Entitic vol] 9.6 fL Normal 6.2-12.0 [facility] Comment on above: Performed By: #### L 100.0100, L500.4050 ####[facility] [address] [place], [address] Platelets (Bld) [#/Vol] 108 10*3/uL Low 150-450 [facility] Comment on above: Performed By: #### L 100.0100, L500.4050 ####[facility] [address] [place], [address] RBC (Bld) [#/Vol] 3.58 10*6/uL Low 4.2-5.4 [facility] Comment on above: Performed By: #### L 100.0100, L500.4050 ####[facility] [address] [place], [address] RDW SD 46.7 fl High 35.1-43.9 [facility] Comment on above: Performed By: #### L 100.0100, L500.4050 ####[facility] [address] [place], [address] WBC (Bld) [#/Vol] 7.8 10*3/uL Normal 4.4-11.0 [facility] Comment on above: Performed By: #### L 100.0100, L500.4050 ####[facility] [address] [place], [address] Carbon dioxide measurementOr dered By: Buddy Hall on 11-11-2024 CO2 [Moles/Vol] 28.0 mmol/L 21.0-32.0 [facility] Chloride measurementOrdered By: Buddy Hall on 11-11-2024 Chloride [Moles/Vol] 102 mmol/L 98-107 [facility] Comprehensive Metabolic Prof ilon 11-11-2024 Albumin [Mass/Vol] 2.6 g/dL Low 3.2-5.0 [facility] Comment on above: Performed By: #### L 100.0100, L500.4050 ####[facility] [address] [place], [address] Albumin/Globulin [Mass ratio] 0.6 {ratio} Low 0.9-2.4 [facility] Comment on above: Performed By: #### L 100.0100, L500.4050 ####[facility] [address] [place], [address] ALK P 79 U/L Normal 45-117 [facility] Comment on above: Performed By: #### L 100.0100, L500.4050 ####[facility] [address] [place], [address] ALT [Catalytic activity/Vol] 29 U/L Normal 13-56 [facility] Comment on above: Performed By: #### L 100.0100, L500.4050 ####[facility] [address] [place], [address] AST [Catalytic activity/Vol] 16 U/L Normal 15-37 [facility] Comment on above: Performed By: #### L 100.0100, L500.4050 ####[facility] [address] [place], [address] Bilirubin [Mass/Vol] 0.90 mg/dL Normal 0.20-1.00 [facility] Comment on above: Result Comment: For patients on eltrombopag therapy, use of Dimension [place] TBIL is not recommended. Performed By: #### L 100.0100, L500.4050 ####[facility] [address] [place], [address] BUN/CRE 9.8 RATIO Low 10-20 [facility] Comment on above: Performed By: #### L 100.0100, L500.4050 ####[facility] [address] [place], [address] CA,Total 8.2 mg/dL Low 8.5-10.1 [facility] Comment on above: Performed By: #### L 100.0100, L500.4050 ####[facility] [address] [place], [address] Chloride [Moles/Vol] 102 mmol/L Normal 98-107 [facility] Comment on above: Performed By: #### L 100.0100, L500.4050 ####[facility] [address] [place], [address] CO2 [Moles/Vol] 28.0 mmol/L Normal 21.0-32.0 [facility] Comment on above: Performed By: #### L 100.0100, L500.4050 ####[facility] [address] [place], [address] Creatinine [Mass/Vol] 1.12 mg/dL High 0.55-1.02 [facility] Comment on above: Result Comment: The validity of the calculated GFR GFRAA in patients over70 years has not been determined. Clinical correlation isessential. Performed By: #### L 100.0100, L500.4050 ####[facility] [address] [place], [address] ECRCL 92.31 ml/min Normal [facility] Comment on above: Performed By: #### L 100.0100, L500.4050 ####[facility] [address] [place], [address] EST GFR - AA 69 mL/min Normal >60 [facility] Comment on above: Result Comment: Afri can [place] GFR Calc Performed By: #### L 100.0100, L500.4050 ####[facility] [address] [place], [address] GAP 6 Normal 5-15 [facility] Comment on above: Performed By: #### L 100.0100, L500.4050 ####[facility] [address] [place], [address] GFR/1.73 sq M.predicted among non-blacks MDRD (S/P/Bld) [Vol rate/Area] 57 mL/min/{1.73_m2} Low >60 [facility] Comment on above: Result Comment: Non- GFR Calc Performed By: #### L 100.0100, L500.4050 ####[facility] [address] [place], [address] Globulin (S) [Mass/Vol] 4.0 g/dL Normal 2.2-4.2 [facility] Comment on above: Performed By: #### L 100.0100, L500.4050 ####[facility] [address] [place], [address] Glucose [Mass/Vol] 233 mg/dL High 74-106 [facility] Comment on above: Result Comment: Gluc ose result greater than or equal to 200 mg/dLsuggests DIABETES MELLITUS per A.D.A. criteria. Performed By: #### L 100.0100, L500.4050 ####[facility] [address] [place], [address] Potassium [Moles/Vol] 2.6 mmol/L Invalid Interpretation Code 3.5-5.1 [facility] Comment on above: Result Comment: Crit ical Result(s) Called at: 07:34:02 11/11/2024 by: AARTI to Ronald Dumas. Results read back by same. Performed By: #### L 100.0100, L500.4050 ####[facility] [address] [place], [address] Sodium [Moles/Vol] 135 mmol/L Low 136-145 [facility] Comment on above: Performed By: #### L 100.0100, L500.4050 ####[facility] [address] [place], [address] T PROT 6.6 g/dL Normal 6.4-8.2 [facility] Comment on above: Performed By: #### L 100.0100, L500.4050 ####[facility] [address] [place], [address] Urea nitrogen [Mass/Vol] 11 mg/dL Normal 7-18 [facility] Comment on above: Performed By: #### L 100.0100, L500.4050 ####[facility] [address] [place], [address] Emergency Department Summary on 11-11-2024 Emergency Department Summary Normal [facility] Eosinophil percentageOrdered By: Buddy Hall on 11-11-2024 Eosinophils/100 WBC (Bld) 1.2 % 0-5 [facility] Epithelial cells.squamous LM Ql (Urine sed)Ordered By: Buddy Hall on 11-11-2024 Epithelial cells.squamous LM.HPF (Urine sed) [#/Area] 0 /[HPF] 5-10 [facility] Erythrocyte distribution wid th ratioOrdered By: Buddy Hall on 11-11-2024 Erythrocyte distribution width (RBC) [Ratio] 13.7 % 11.6-14.6 [facility] Erythrocyte distribution wid th standard deviationOrdered By: Buddy Hall on 11-11-2024 Erythrocyte distribution width (RBC) [Entitic vol] 46.7 fL High 35.1-43.9 [facility] Estimated glomerular filtrat ion rate (GFR) AmericanOrdered By: Buddy Hall on 11-11-2024 Estimated GFR (MDRD) Amer 69 mL/min >60 [facility] Comment on above: GFR Calc Estimation of creatinine deniz aranceOrdered By: Buddy Hall on 11-11-2024 Estimated Creatinine Clearance Calc 92.31 ml/min [facility] Glomerular filtration rate ( GFR) estimationOrdered By: Buddy Hall on 11-11-2024 Estimated GFR (MDRD) Non-Af Amer 57 mL/min Low >60 [facility] Comment on above: Non- GFR Calc Glucose Ql (U)Ordered By: Smith Hall on 11-11-2024 Urine Glucose (UA) Normal mg/dl Normal [facility] Glucose measurementOrdered B y: Buddy Hall on 11-11-2024 Glucose [Mass/Vol] 233 mg/dL High 74-106 [facility] Comment on above: Glucose result great er than or equal to 200 mg/dLsuggests DIABETES MELLITUS per A.D.A. criteria. Hematocrit Auto (Bld) [Volum e fraction]Ordered By: Buddy Hall on 11-11-2024 Hematocrit (Bld) [Volume fraction] 33.1 % Low 37-47 [facility] Hemoglobin measurementOrdere d By: Buddy Hall on 11-11-2024 Hemoglobin (Bld) [Mass/Vol] 11.4 g/dL Low 12.0-15.0 [facility] Immature granulocytes/100 WB C Auto (Bld)Ordered By: Buddy Hall on 11-11-2024 Immature granulocytes/100 WBC (Bld) 1.200 % High 0.0-0.9 [facility] Comment on above: IG% - Immature Granu locytes (promyelocytes, myelocytes and metamyelocytes) > 1% indicates that a LEFT SHIFT is Present. Influenza virus A and B and SARS-CoV-2 (COVID-19) and Respiratory syncytial virus RNAOrdered By: Buddy Hall on 11-11-2024 SARS-CoV-2 (COVID-19) RNA ALLYSON+probe Ql (Unsp spec) [facility] Ketones Test strip Ql (U)Ord ered By: Buddy Hall on 11-11-2024 Ketones Ql (U) 5 mg/dl High Negative [facility] Laboratory - Chemistry and C hemistry - challengeOrdered By: Buddy Hall on 11-11-2024 AST [Catalytic activity/Vol] 16 U/L 15-37 [facility] Lymphocytes Auto (Unsp spec) [#/Vol]Ordered By: Buddy Hall on 11-11-2024 Lymphocytes (Bld) [#/Vol] 0.72 10*3/uL Low 0.83-4.51 [facility] Lymphocytes/100 WBC Auto (Un sp spec)Ordered By: Buddy Hall on 11-11-2024 Lymphocytes/100 WBC (Bld) 9.2 % Low 19-41 [facility] M100.678on 11-11-2024 M100.678 Pending SARS-CoV-2 (COVID 19) Negative INFLUENZA A Negative INFLUENZA B Negative RSV PCR Negative Normal [facility] Comment on above: Performed By: #### M 100.678, L400.0001 ####[facility] [address] [place], [place], [id number] MCV (mean corpuscular volume ) determinationOrdered By: Buddy Hall on 11-11-2024 MCV (RBC) [Entitic vol] 92.5 fL 81-99 [facility] Magnesiumon 11-11-2024 Magnesium [Mass/Vol] 1.7 mg/dL Normal 1.6-2.6 [facility] Comment on above: Performed By: #### L 501.5200 ####[facility] [address] [place], [place], [id number] Magnesium measurementOrdered By: Buddy Hall on 11-11-2024 Magnesium [Mass/Vol] 1.7 mg/dL 1.6-2.6 [facility] Mean corpuscular hemoglobin (MCH) determinationOrdered By: Buddy Hall on 11-11-2024 MCH (RBC) [Entitic mass] 31.8 pg 27.0-32.0 [facility] Mean corpuscular hemoglobin concentration (MCHC) determinationOrdered By: Buddy Hall on 11-11-2024 MCHC (RBC) [Mass/Vol] 34.4 g/dL 32-36 [facility] Mean platelet volume determi nationOrdered By: Buddy Hall on 11-11-2024 Platelet mean volume (Bld) [Entitic vol] 9.6 fL 6.2-12.0 [facility] Microscopic analysis of urin e for red blood cells (RBC)Ordered By: Buddy Hall on 11-11-2024 Urine RBC 0-5 SEEN /hpf 0-5 [facility] Monocyte percentageOrdered B y: Buddy Hall on 11-11-2024 Monocytes/100 WBC (Bld) 4.2 % 0-10 [facility] Mucus LM Ql (Urine sed)Order ed By: Buddy Hall on 11-11-2024 Mucus Ql (Urine sed) 0 SEEN /hpf [facility] Neutrophil percentageOrdered By: Buddy Hall on 11-11-2024 Neutrophils/100 WBC (Bld) 83.8 % High 47-70 [facility] Nitrite Test strip Ql (U)Ord ered By: Buddy Hall on 11-11-2024 Nitrite Ql (U) Negative Negative [facility] Nucleated red blood cell per centageOrdered By: Buddy Hall on 11-11-2024 Nucleated RBC/100 WBC (Bld) [Ratio] 0 % 0-5 [facility] Platelet countOrdered By: Smith Hall on 11-11-2024 Platelets (Bld) [#/Vol] 108 10*3/uL Low 150-450 [facility] Potassium measurementOrdered By: Buddy Hall on 11-11-2024 Potassium [Moles/Vol] 2.6 mmol/L Low 3.5-5.1 [facility] Comment on above: Critical Result(s) C alled at: 07:34:02 11/11/2024 by: ESTEFANIA MENDOZA to Ronald Dumas. Results read back by same. Protein Test strip Ql (U)Ord ered By: Buddy Hall on 11-11-2024 Protein Ql (U) 100 mg/dl High Negative [facility] RBC Auto (Bld) [#/Vol]Ordere d By: Buddy Hall on 11-11-2024 RBC (Bld) [#/Vol] 3.58 10*6/uL Low 4.2-5.4 [facility] Serum anion gap measurementO rdered By: Buddy Hall on 11-11-2024 Anion gap [Moles/Vol] 6 mmol/L 5-15 [facility] Serum globulin measurementOr dered By: Buddy Hall on 11-11-2024 Globulin (S) [Mass/Vol] 4.0 g/dL 2.2-4.2 [facility] Serum or plasma alanine arizmendi otransferase (ALT) measurementOrdered By: Buddy Hall on 11-11-2024 ALT [Catalytic activity/Vol] 29 U/L 13-56 [facility] Serum or plasma albumin sharron urement (mass/volume)Ordered By: Buddy Hall on 11-11-2024 Albumin [Mass/Vol] 2.6 g/dL Low 3.2-5.0 [facility] Serum or plasma alkaline toyin sphatase measurementOrdered By: Buddy Hall on 11-11-2024 ALP [Catalytic activity/Vol] 79 U/L 45-117 [facility] Serum or plasma calcium sharron urement (mass/volume)Ordered By: Buddy Hall on 11-11-2024 Calcium [Mass/Vol] 8.2 mg/dL Low 8.5-10.1 [facility] Serum or plasma creatinine m easurement (mass/volume)Ordered By: Buddy Hall on 11-11-2024 Creatinine [Mass/Vol] 1.12 mg/dL High 0.55-1.02 [facility] Comment on above: The validity of the calculated GFR & GFRAA in patients over 70 years has not been determined. Clinical correlation is essential. Serum or plasma urea nitroge n measurement (mass/volume)Ordered By: Buddy Hall on 11-11-2024 Urea nitrogen [Mass/Vol] 11 mg/dL 7-18 [facility] Sodium levelOrdered By: Ashia Hall on 11-11-2024 Sodium [Moles/Vol] 135 mmol/L Low 136-145 [facility] Total proteinOrdered By: Sim Hall on 11-11-2024 Protein [Mass/Vol] 6.6 g/dL 6.4-8.2 [facility] Urinalysis, Completeon 11-11 BACTERIA RARE Normal None Seen [facility] Comment on above: Order Comment: CLEAN CATCH Performed By: #### M 100.678, L400.0001 ####[facility] [address] [place], [address] EPI,SQUAMOUS 0-5 SEEN Normal 5-10 [facility] Comment on above: Order Comment: CLEAN CATCH Performed By: #### M 100.678, L400.0001 ####[facility] [id number] [place], [address] RBC 0-5 SEEN Normal 0-5 [facility] Comment on above: Order Comment: CLEAN CATCH Performed By: #### M 100.678, L400.0001 ####[facility] [address] [place], [address] WBC 10-25 SEEN Normal 0-5 [facility] Comment on above: Order Comment: CLEAN CATCH Performed By: #### M 100.678, L400.0001 ####[facility] [address] [place], [address] Mucus Ql (Urine sed) 0 SEEN Normal [facility] Comment on above: Order Comment: CLEAN CATCH Performed By: #### M 100.678, L400.0001 ####[facility] [id number] [place], [address] Urine blood detectionOrdered By: Buddy Hall on 11-11-2024 Urine Occult Blood 150 /ul High Negative [facility] Urine clarityOrdered By: Sim Hall on 11-11-2024 Clarity (U) Sl. Cloudy Clear [facility] Urine color determinationOrd ered By: Buddy Hall on 11-11-2024 Color (U) Yellow Yellow [facility] Urine cultureOrdered By: Sim Hall on 11-11-2024 Bacteria identified Cx Nom (U) Mixed Gram Pos & Gram Neg Org Abnormal [facility] Urine leukocyte esterase det ection by dipstickOrdered By: Buddy Hall on 11-11-2024 Leukocyte esterase Test strip Ql (U) 500 /ul High Negative [facility] Urine pHOrdered By: Buddy samuel on 11-11-2024 pH (U) 6.5 [pH] 5.0 - 8.0 [facility] Urine specific gravity measu rementOrdered By: Buddy Hall on 11-11-2024 Specific gravity (U) [Rel density] 1.010 1.002-1.030 [facility] Urobilinogen Ql (U)Ordered B y: Buddy Hall on 11-11-2024 Urine Urobilinogen Normal mg/dl Normal [facility] White blood cell (WBC) count Ordered By: Buddy Hall on 11-11-2024 WBC (Bld) [#/Vol] 7.8 10*3/uL 4.4-11.0 [facility] White blood cell countOrdere d By: Buddy Hall on 11-11-2024 Urine WBC 10-25 SEEN /hpf 0-5 [facility] Chiropractic Reporton 2023 Chiropractic Report Normal [facility] Brain/Head without Contrasto n 10-16-2024 Brain/Head without Contrast Normal [facility] Emergency Department Summary on 10-16-2024 Emergency Department Summary Normal [facility] HIP, UNI W/ Pelvis 2-3 Views on 10-16-2024 HIP, UNI W/ Pelvis 2-3 Views Normal [facility] Lumbar Spine 2 or 3 Viewson 10-16-2024 Lumbar Spine 2 or 3 Views Normal [facility] Spine Cervical without Contr ason 10-16-2024 Spine Cervical without Contras Normal [facility] HBA1C (OUTSIDE)on 07-08-2024 HbA1c (Bld) [Mass fraction] 6.7 % [facility] LIPID PANEL (OUTSIDE)on Cholesterol [Mass/Vol] 195 mg/dL [facility] Cholesterol in HDL [Mass/Vol] 35 mg/dL [facility] Cholesterol in LDL [Mass/Vol] 105 mg/dL [facility] LDL:HDL Ratio [facility] Non-HDL Cholesterol [facility] TC:HDL Ratio [facility] Triglyceride [Mass/Vol] 274 mg/dL [facility] VLDL Cholesterol 55 [facility] No Panel Informationon 07-08 [facility] MICROALBUMIN/CREATININE UR W RATIO (EXTERNAL)Ordered By: Lubna Yoon on 07-04-2024 Albumin/Creat Ratio 93 [facility] Creatinine Urine 164 [facility] Microalbumin, Random urine 153 [facility] Absolute lymphocyte countOrd ered By: Sam Pearl on 02-04-2024 Lymphocytes Auto (Unsp spec) [#/Vol] 2.24 10*3/uL 0.83-4.51 [facility] Automated lymphocyte count a s percentage of total leukocytesOrdered By: Sam Pearl on 02-04-2024 Lymphocytes/100 WBC Auto (Unsp spec) 19.8 % 19-41 [facility] Basophil percentageOrdered B y: Sam Pearl on 02-04-2024 Basophils/100 WBC (Bld) 0.4 % 0-1 [facility] Chloride [Moles/Vol] 106 mmol/L 98-107 [facility] Eosinophils/100 WBC (Bld) 0.9 % 0-5 [facility] Glucose [Mass/Vol] 246 mg/dL 74-106 [facility] Comment on above: Glucose result great er than or equal to 200 mg/dLsuggests DIABETES MELLITUS per A.D.A. criteria. Hemoglobin (Bld) [Mass/Vol] 11.2 g/dL 12.0-15.0 [facility] Monocytes/100 WBC (Bld) 6.6 % 0-10 [facility] Neutrophils (Bld) [#/Vol] 8.0 10*3/uL 2.0-7.7 [facility] Neutrophils/100 WBC (Bld) 71.0 % 47-70 [facility] Potassium [Moles/Vol] 3.6 mmol/L 3.5-5.1 [facility] Sodium [Moles/Vol] 135 mmol/L 136-145 [facility] WBC (Bld) [#/Vol] 11.3 10*3/uL 4.4-11.0 [facility] er [facility] Basophil percentage 10-25 SEEN /hpf 0-5 [facility] Bilirubin Test strip Ql (U)O rdered By: Sam Pearl on 02-04-2024 Bilirubin Ql (U) Negative Negative [facility] Determination of erythrocyte mean corpuscular volume (MCV)Ordered By: Sam Pearl on 02-04-2024 MCV (RBC) [Entitic vol] 89.5 fL 81-99 [facility] Erythrocyte distribution wid th ratioOrdered By: Sam Pearl on 02-04-2024 Erythrocyte distribution width (RBC) [Ratio] 13.2 % 11.6-14.6 [facility] Erythrocyte distribution wid th standard deviationOrdered By: Sam Pearl on 02-04-2024 Erythrocyte distribution width (RBC) [Entitic vol] 43.2 fL 35.1-43.9 [facility] Hematocrit Auto (Bld) [Volum e fraction]Ordered By: Sam Pearl on 02-04-2024 Hematocrit (Bld) [Volume fraction] 34.2 % 37-47 [facility] Immature granulocytes/100 WB C Auto (Bld)Ordered By: Sam Pearl on 02-04-2024 Immature granulocytes/100 WBC (Bld) 1.300 % 0.0-0.9 [facility] Comment on above: IG% - Immature Granu locytes (promyelocytes, myelocytes and metamyelocytes) > 1% indicates that a LEFT SHIFT is Present. Ketones Test strip Ql (U)Ord ered By: Sam Pearl on 02-04-2024 Ketones Ql (U) Negative Negative [facility] Laboratory - Chemistry and C hemistry - challengeOrdered By: Sam Pearl on 02-04-2024 CO2 [Moles/Vol] 21.0 mmol/L 21.0-32.0 [facility] Urea nitrogen/Creatinine [Mass ratio] 15.0 mg/mg 10-20 [facility] Laboratory - Hematology and Cell countsOrdered By: Sam Pearl on 02-04-2024 MCH (RBC) [Entitic mass] 29.3 pg 27.0-32.0 [facility] MCHC (RBC) [Mass/Vol] 32.7 g/dL 32-36 [facility] Nucleated RBC/100 WBC (Bld) [Ratio] 0 % 0-5 [facility] Platelet mean volume (Bld) [Entitic vol] 9.2 fL 6.2-12.0 [facility] Platelets (Bld) [#/Vol] 203 10*3/uL 150-450 [facility] Laboratory - Microbiology an d Antimicrobial susceptibilityOrdered By: Sam Pearl on 02-04-2024 SARS-CoV-2 (COVID-19) RNA ALLYSON+probe Ql (Unsp spec) [facility] Mucus LM Ql (Urine sed)Order ed By: Sam Pearl on 02-04-2024 Mucus Ql (Urine sed) 0 SEEN /hpf [facility] Nitrite Test strip Ql (U)Ord ered By: Sam Pearl on 02-04-2024 Nitrite Ql (U) Negative Negative [facility] No Panel InformationOrdered By: Sam Pearl on 02-04-2024 Estimated Creatinine Clearance Calc 116.68 ml/min [facility] Estimated GFR (MDRD) Amer 92 mL/min >60 [facility] Comment on above: GFR Calc Estimated GFR (MDRD) Non-Af Amer 76 mL/min >60 [facility] Comment on above: Non- GFR Calc Urine RBC 0-5 SEEN /hpf 0-5 [facility] Protein Test strip Ql (U)Ord ered By: Sam Pearl on 02-04-2024 Protein Ql (U) 15 mg/dl Negative [facility] RBC Auto (Bld) [#/Vol]Ordere d By: Sam Pearl on 02-04-2024 RBC (Bld) [#/Vol] 3.82 10*6/uL 4.2-5.4 [place] [facility] Serum or plasma calcium sharron urement (mass/volume)Ordered By: Sam Pearl on 02-04-2024 Calcium [Mass/Vol] 8.4 mg/dL 8.5-10.1 [facility] Serum or plasma creatinine m easurement (mass/volume)Ordered By: Sam Pearl on 02-04-2024 Creatinine [Mass/Vol] 0.87 mg/dL 0.55-1.[address] [facility] Comment on above: The validity of the calculated GFR & GFRAA in patients over 70 years has not been determined. Clinical correlation is essential. Serum or plasma urea nitroge n measurement (mass/volume)Ordered By: Sam Pearl on 02-04-2024 Urea nitrogen [Mass/Vol] 13 mg/dL 7-18 [facility] Squamous epithelial cells de tection in urine sediment by light microscopyOrdered By: Sam Pearl on 02-04-2024 Epithelial cells.squamous LM Ql (Urine sed) 0-5 SEEN /hpf 5-10 [facility] Thin prep Papanicolaou smear with manual screeningOrdered By: Sam Pearl on 02-04-2024 Thin prep Papanicolaou smear with manual screening 8 5-15 [facility] Urine blood detectionOrdered By: Sam Pearl on 02-04-2024 RBC Ql (U) 10 /ul Negative [facility] Urine clarityOrdered By: Ramses Pearl on 02-04-2024 Clarity (U) Clear Clear [facility] Urine color determinationOrd ered By: Sam Pearl on 02-04-2024 Color (U) Yellow Yellow [facility] Urine glucose detectionOrder ed By: Sam Pearl on 02-04-2024 Glucose Ql (U) Normal mg/dl Normal [facility] Urine leukocyte esterase det ection by dipstickOrdered By: Sam Pearl on 02-04-2024 Leukocyte esterase Test strip Ql (U) 100 /ul Negative [facility] Urine pHOrdered By: Sam Pearl on 02-04-2024 pH (U) 7.0 [pH] 5.0 - 8.0 [facility] Urine sediment bacteria coun t by microscopy (number/high power field)Ordered By: Sam Pearl on 02-04-2024 Bacteria LM.HPF (Urine sed) [#/Area] 4 /[HPF] None Seen [facility] Urine specific gravity measu rementOrdered By: Sam Pearl on 02-04-2024 Specific gravity (U) [Rel density] 1.010 1.002-1.030 [facility] Urine urobilinogen measureme ntOrdered By: Sam Pearl on 02-04-2024 Urobilinogen Ql (U) Normal mg/dl Normal [facility] Absolute lymphocyte countOrd ered By: Ivette Patinoo on 12-06-2023 Lymphocytes Auto (Unsp spec) [#/Vol] 2.89 10*3/uL 0.83-4.51 [facility] Automated lymphocyte count a s percentage of total leukocytesOrdered By: Ivette Patinoo on 12-06-2023 Lymphocytes/100 WBC Auto (Unsp spec) 27.0 % 19-41 [facility] Basophil percentageOrdered B y: Ivette Sydney on 12-06-2023 Basophils/100 WBC (Bld) 0.7 % 0-1 [facility] Bilirubin [Mass/Vol] 0.50 mg/dL 0.20-1.00 [facility] Comment on above: For patients on eltr ombopag therapy, use of Dimension [place] TBIL is not recommended. Chloride [Moles/Vol] 113 mmol/L 98-107 [facility] Cholesterol [Mass/Vol] 202 mg/dL <200 [facility] Comment on above: <200 mg/dL Desirable 200-240 mg/dL Borderline >240 mg/dL High Risk Eosinophils/100 WBC (Bld) 1.4 % 0-5 [facility] Glucose [Mass/Vol] 113 mg/dL 74-106 [facility] Comment on above: Fasting Glucose resu lt from 100 to 125 mg/dL suggests IMPAIRED HOMEOSTASIS per A.D.A. criteria. Hemoglobin (Bld) [Mass/Vol] 13.1 g/dL 12.0-15.0 [facility] Monocytes/100 WBC (Bld) 3.6 % 0-10 [facility] Neutrophils (Bld) [#/Vol] 7.1 10*3/uL 2.0-7.7 [facility] Neutrophils/100 WBC (Bld) 66.3 % 47-70 [facility] Potassium [Moles/Vol] 4.0 mmol/L 3.5-5.1 [facility] Protein [Mass/Vol] 8.7 g/dL 6.4-8.2 [facility] Sodium [Moles/Vol] 138 mmol/L 136-145 [facility] Triglyceride [Mass/Vol] 192 mg/dL <199 [facility] Comment on above: The drugs N-Acetylcy steine and Metamizole may falsely depress this assay.Serum Triglycerides Reference Interval Normal <150 mg/dL Borderline high 150 - 199 mg/dL High 200 - 499 mg/dL Very High > or = 500 mg/dL WBC (Bld) [#/Vol] 10.7 10*3/uL 4.4-11.0 [facility] Determination of erythrocyte mean corpuscular volume (MCV)Ordered By: Ivette Grimes on 12-06-2023 MCV (RBC) [Entitic vol] 92.8 fL 81-99 [facility] Erythrocyte distribution wid th ratioOrdered By: Ivette Grimes on 12-06-2023 Erythrocyte distribution width (RBC) [Ratio] 13.1 % 11.6-14.6 [facility] Erythrocyte distribution wid th standard deviationOrdered By: Ivette Grimes on 12-06-2023 Erythrocyte distribution width (RBC) [Entitic vol] 44.4 fL 35.1-43.9 [facility] Hematocrit Auto (Bld) [Volum e fraction]Ordered By: Ivette Grimes on 12-06-2023 Hematocrit (Bld) [Volume fraction] 39.9 % 37-47 [facility] Immature granulocytes/100 WB C Auto (Bld)Ordered By: Ivette Grimes on 12-06-2023 Immature granulocytes/100 WBC (Bld) 1.000 % 0.0-0.9 [facility] Comment on above: IG% - Immature Granu locytes (promyelocytes, myelocytes and metamyelocytes) > 1% indicates that a LEFT SHIFT is Present. Laboratory - Chemistry and C hemistry - challengeOrdered By: Ivette Grimes on 12-06-2023 Albumin/Globulin [Mass ratio] 0.9 {ratio} 0.9-2.4 [facility] ALP [Catalytic activity/Vol] 80 U/L 45-117 [facility] ALT [Catalytic activity/Vol] 24 U/L 13-56 [facility] Cholesterol in HDL (Body fld) [Mass/Vol] 36 mg/dL >40 [facility] Comment on above: The drugs N-Acetylcy steine and Metamizole may falsely depress this assay. Reference Range HDL <40 mg/dL Low HDL Cholesterol HDL >or= 60 mg/dL High HDL Cholesterol Cholesterol in LDL (Body fld) [Moles/Vol] 128 mg/dL 0-130 [facility] Cholesterol in VLDL Calc [Moles/Vol] 38 mg/dL 5-40 [facility] CO2 [Moles/Vol] 19.0 mmol/L 21.0-32.0 [facility] Globulin (S) [Mass/Vol] 4.6 g/dL 2.2-4.2 [facility] Urea nitrogen/Creatinine [Mass ratio] 25.9 mg/mg 10-20 [facility] Laboratory - Hematology and Cell countsOrdered By: Ivette Grimes on 12-06-2023 MCH (RBC) [Entitic mass] 30.5 pg 27.0-32.0 [facility] MCHC (RBC) [Mass/Vol] 32.8 g/dL 32-36 [facility] Nucleated RBC/100 WBC (Bld) [Ratio] 0 % 0-5 [facility] Platelets (Bld) [#/Vol] 241 10*3/uL 150-450 [facility] No Panel InformationOrdered By: Ivette Grimes on 12-06-2023 Estimated GFR (MDRD) Amer 90 mL/min >60 [facility] Comment on above: GFR Calc Estimated GFR (MDRD) Non-Af Amer 74 mL/min >60 [facility] Comment on above: Non- GFR Calc Platelet mean volume Jose-Ec ker (Bld) [Entitic vol]Ordered By: Ivette Grimes on 12-06-2023 Platelet mean volume (Bld) [Entitic vol] 8.8 fL 6.2-12.0 [facility] RBC Auto (Bld) [#/Vol]Ordere d By: Ivette Grimes on 12-06-2023 RBC (Bld) [#/Vol] 4.30 10*6/uL 4.2-5.4 [facility] Serum or plasma calcium sharron urement (mass/volume)Ordered By: Ivette Grimes on 12-06-2023 Calcium [Mass/Vol] 9.1 mg/dL 8.5-10.1 [facility] Serum or plasma creatinine m easurement (mass/volume)Ordered By: Ivette Grimes on 12-06-2023 Creatinine [Mass/Vol] 0.89 mg/dL 0.55-1.02 [facility] Comment on above: The validity of the calculated GFR & GFRAA in patients over 70 years has not been determined. Clinical correlation is essential. Serum or plasma urea nitroge n measurement (mass/volume)Ordered By: Ivette Grimes on 12-06-2023 Urea nitrogen [Mass/Vol] 23 mg/dL 7-18 [facility] Thin prep Papanicolaou smear with manual screeningOrdered By: Ivette Grimes on 12-06-2023 Thin prep Papanicolaou smear with manual screening 4.1 g/dL 3.2-5.0 [facility] Thin prep Papanicolaou smear with manual screening 11 U/L 15-37 [facility] Thin prep Papanicolaou smear with manual screening 6 5-15 [facility] Whole blood hemoglobin A1c/t otal hemoglobin ratio (mass fraction)Ordered By: Ivette Grimes on 12-06-2023 HbA1c (Bld) [Mass fraction] 5.7 % 3.8-5.6 [facility] Comment on above: Normal < 5.7 % Predi abetic 5.7 - 6.4 % Diabetic >or= 6.5 % Please note range changes. Glucose Glucometer (BldC) [M ass/Vol]Ordered By: Sosa Mendez on 08-07-2023 Glucose [Mass/Vol] 157 mg/dL 74-106 [facility] Comment on above: MANAGEMENT OF PATIEN T CARE PER NURSING PROTOCOL Absolute lymphocyte countOrd ered By: Sosa Mendez on 08-06-2023 Lymphocytes Auto (Unsp spec) [#/Vol] 2.45 10*3/uL 0.83-4.51 [facility] Basophil percentageOrdered B y: Sosa Mendez on 10-03-2023 Basophils/100 WBC (Bld) 0.8 % 0-1 [facility] Chloride [Moles/Vol] 111 mmol/L 98-107 [facility] Cholesterol [Mass/Vol] 173 mg/dL <200 [facility] Comment on above: <200 mg/dL Desirable 200-240 mg/dL Borderline >240 mg/dL High Risk Eosinophils/100 WBC (Bld) 3.1 % 0-5 [facility] Glucose [Mass/Vol] 143 mg/dL 74-106 [facility] Comment on above: Fasting Glucose resu lt greater than or equal to 126 mg/dL suggests DIABETES MELLITUS per A.D.A. criteria. Neutrophils (Bld) [#/Vol] 3.9 10*3/uL 2.0-7.7 [facility] Neutrophils/100 WBC (Bld) 54.5 % 47-70 [facility] Potassium [Moles/Vol] 3.6 mmol/L 3.5-5.1 [facility] Sodium [Moles/Vol] 139 mmol/L 136-145 [facility] Triglyceride [Mass/Vol] 325 mg/dL <199 [facility] Comment on above: The drugs N-Acetylcy steine and Metamizole may falsely depress this assay.Serum Triglycerides Reference Interval Normal <150 mg/dL Borderline high 150 - 199 mg/dL High 200 - 499 mg/dL Very High > or = 500 mg/dL WBC (Bld) [#/Vol] 7.1 10*3/uL 4.4-11.0 [facility] Blood erythrocytes count (nu mber/volume)Ordered By: Sosa Mendez on 08-06-2023 RBC (Bld) [#/Vol] 4.15 10*6/uL 4.2-5.4 [facility] Blood hemoglobin measurement (mass/volume)Ordered By: Sosa Mendez on 08-06-2023 Hemoglobin (Bld) [Mass/Vol] 13.0 g/dL 12.0-15.0 [facility] Blood lymphocytes/100 leukoc ytesOrdered By: Sosa Mendez on 08-06-2023 Lymphocytes/100 WBC (Bld) 34.4 % 19-41 [facility] Blood monocytes/100 leukocyt esOrdered By: Sosa Mendez on 08-06-2023 Monocytes/100 WBC (Bld) 5.2 % 0-10 [facility] Blood platelet mean volumeOr dered By: Sosa Mendez on 08-06-2023 Platelet mean volume (Bld) [Entitic vol] 9.4 fL 6.2-12.0 [facility] Determination of erythrocyte mean corpuscular volume (MCV)Ordered By: Sosa Mendez on 08-06-2023 MCV (RBC) [Entitic vol] 95.4 fL 81-99 [facility] Hematocrit Auto (Bld) [Volum e fraction]Ordered By: Sosa Mendez on 08-06-2023 Hematocrit (Bld) [Volume fraction] 39.6 % 37-47 [facility] Laboratory - Chemistry and C hemistry - challengeOrdered By: Sosa Mendez on 08-06-2023 CO2 [Moles/Vol] 23.0 mmol/L 21.0-32.0 [facility] Urea nitrogen/Creatinine [Mass ratio] 15.4 mg/mg 10-20 [facility] Laboratory - Hematology and Cell countsOrdered By: Sosa Mendez on 08-06-2023 Erythrocyte distribution width (RBC) [Entitic vol] 45.4 fL 35.1-43.9 [facility] Erythrocyte distribution width (RBC) [Ratio] 13.0 % 11.6-14.6 [facility] Immature granulocytes/100 WBC (Bld) 2.000 % 0.0-0.9 [facility] Comment on above: IG% - Immature Granu locytes (promyelocytes, myelocytes and metamyelocytes) > 1% indicates that a LEFT SHIFT is Present. MCH (RBC) [Entitic mass] 31.3 pg 27.0-32.0 [facility] Nucleated RBC/100 WBC (Bld) [Ratio] 0 % 0-5 [facility] MCHC Auto (RBC) [Mass/Vol]Or dered By: Sosa Mendez on 08-06-2023 MCHC (RBC) [Mass/Vol] 32.8 g/dL 32-36 [facility] No Panel InformationOrdered By: Sosa Mendez on 08-06-2023 Estimated Creatinine Clearance Calc 92.30 ml/min [facility] Estimated GFR (MDRD) Amer 104 mL/min >60 [facility] Comment on above: GFR Calc Estimated GFR (MDRD) Non-Af Amer 86 mL/min >60 [facility] Comment on above: Non- GFR Calc Platelets bldOrdered By: Shanell Mendez on 08-06-2023 Platelets (Bld) [#/Vol] 184 10*3/uL 150-450 [facility] Serum or plasma calcium sharron urement (mass/volume)Ordered By: Sosa Mendez on 08-06-2023 Calcium [Mass/Vol] 8.2 mg/dL 8.5-10.1 [facility] Serum or plasma cholesterol in HDL measurement (mass/volume)Ordered By: Sosa Mendez on 08-06-2023 Cholesterol in HDL [Mass/Vol] 29 mg/dL >40 [facility] Comment on above: The drugs N-Acetylcy steine and Metamizole may falsely depress this assay. Reference Range HDL <40 mg/dL Low HDL Cholesterol HDL >or= 60 mg/dL High HDL Cholesterol Serum or plasma cholesterol in VLDL measurement (mass/volume)Ordered By: Sosa Mendez on 08-06-2023 Cholesterol in VLDL [Mass/Vol] 65 mg/dL 5-40 [facility] Serum or plasma creatinine m easurement (mass/volume)Ordered By: Sosa Mendez on 08-06-2023 Creatinine [Mass/Vol] 0.78 mg/dL 0.55-1.02 [facility] Comment on above: The validity of the calculated GFR & GFRAA in patients over 70 years has not been determined. Clinical correlation is essential. Serum or plasma low density lipoprotein (LDL) cholesterol measurement (mass/volume)Ordered By: Sosa Mendez on 08-06-2023 Cholesterol in LDL [Mass/Vol] 79 mg/dL 0-130 [facility] Serum or plasma urea nitroge n measurement (mass/volume)Ordered By: Sosa Mendez on 08-06-2023 Urea nitrogen [Mass/Vol] 12 mg/dL 7-18 [facility] Thin prep Papanicolaou smear with manual screeningOrdered By: Sosa Mendez on 08-06-2023 Thin prep Papanicolaou smear with manual screening 5 5-15 [facility] Absolute lymphocyte countOrd ered By: Niurka Kendall on 08-05-2023 Lymphocytes Auto (Unsp spec) [#/Vol] 2.33 10*3/uL 0.83-4.51 [facility] Basophil percentageOrdered B y: Niurka Kendall on 08-05-2023 Basophils/100 WBC (Bld) 0.9 % 0-1 [facility] Chloride [Moles/Vol] 110 mmol/L 98-107 [facility] Eosinophils/100 WBC (Bld) 2.6 % 0-5 [facility] Glucose [Mass/Vol] 108 mg/dL 74-106 [facility] Comment on above: Fasting Glucose resu lt from 100 to 125 mg/dL suggests IMPAIRED HOMEOSTASIS per A.D.A. criteria. Neutrophils (Bld) [#/Vol] 4.7 10*3/uL 2.0-7.7 [facility] Neutrophils/100 WBC (Bld) 59.9 % 47-70 [facility] Potassium [Moles/Vol] 3.7 mmol/L 3.5-5.1 [facility] Sodium [Moles/Vol] 140 mmol/L 136-145 [facility] WBC (Bld) [#/Vol] 7.8 10*3/uL 4.4-11.0 [facility] Blood erythrocytes count (nu mber/volume)Ordered By: Niurka Kendall on 08-05-2023 RBC (Bld) [#/Vol] 4.04 10*6/uL 4.2-5.4 [facility] Blood hemoglobin measurement (mass/volume)Ordered By: Niurka Kendall on 08-05-2023 Hemoglobin (Bld) [Mass/Vol] 12.9 g/dL 12.0-15.0 [facility] Blood lymphocytes/100 leukoc ytesOrdered By: Niurka Kendall on 08-05-2023 Lymphocytes/100 WBC (Bld) 30.1 % 19-41 [facility] Blood monocytes/100 leukocyt esOrdered By: Niurka Kendall on 08-05-2023 Monocytes/100 WBC (Bld) 5.2 % 0-10 [facility] Blood platelet mean volumeOr dered By: Niurka Kendall on 08-05-2023 Platelet mean volume (Bld) [Entitic vol] 9.7 fL 6.2-12.0 [facility] COVID-19 virus antigen assay Ordered By: Niurka Kendall on 08-05-2023 SARS-CoV-2 (COVID-19) Ag IA.rapid Ql (Resp) [facility] SARS-CoV-2 (COVID-19) Ag IA.rapid Ql (Resp) [facility] Determination of erythrocyte mean corpuscular volume (MCV)Ordered By: Niurka Kendall on 08-05-2023 MCV (RBC) [Entitic vol] 97.8 fL 81-99 [facility] Glucose Glucometer (dC) [M ass/Vol]Ordered By: Niurka Kendall on 08-05-2023 Glucose [Mass/Vol] 120 mg/dL 74-106 [facility] Comment on above: MANAGEMENT OF PATIEN T CARE PER NURSING PROTOCOL Hematocrit Auto (Bld) [Volum e fraction]Ordered By: Niurka Kendall on 08-05-2023 Hematocrit (Bld) [Volume fraction] 39.5 % 37-47 [facility] INR in Blood by Coagulation assayOrdered By: Niurka Kendall on 08-05-2023 INR Coag (Bld) [Relative time] 1.1 {INR} [facility] Laboratory - Chemistry and C hemistry - challengeOrdered By: Niurka Kendall on 08-05-2023 CO2 [Moles/Vol] 24.0 mmol/L 21.0-32.0 [facility] Urea nitrogen/Creatinine [Mass ratio] 20.8 mg/mg 10 [facility] Laboratory - CoagulationOrde red By: Niurka Kendall on 08-05-2023 aPTT Coag (Bld) [Time] 32.7 s 24.1-36.2 [facility] PT Coag (PPP) [Time] 14.4 s 11.7-14.9 [facility] Laboratory - Hematology and Cell countsOrdered By: Niurka Kendall on 08-05-2023 Erythrocyte distribution width (RBC) [Entitic vol] 47.0 fL 35.1-43.9 [facility] Erythrocyte distribution width (RBC) [Ratio] 13.1 % 11.6-14.6 [facility] Immature granulocytes/100 WBC (Bld) 1.300 % 0.0-0.9 [facility] Comment on above: IG% - Immature Granu locytes (promyelocytes, myelocytes and metamyelocytes) > 1% indicates that a LEFT SHIFT is Present. MCH (RBC) [Entitic mass] 31.9 pg 27.0-32.0 [facility] Nucleated RBC/100 WBC (Bld) [Ratio] 0 % 0-5 [facility] MCHC Auto (RBC) [Mass/Vol]Or dered By: Niurka Kendall on 08-05-2023 MCHC (RBC) [Mass/Vol] 32.7 g/dL 32-36 [facility] No Panel InformationOrdered By: Niurka Kendall on 08-05-2023 Estimated Creatinine Clearance Calc 99.99 ml/min [facility] Estimated GFR (MDRD) Amer 115 mL/min >60 [facility] Comment on above: GFR Calc Estimated GFR (MDRD) Non-Af Amer 95 mL/min >60 [facility] Comment on above: Non- GFR Calc Thyroid Stimulating Hormone (TSH) 1.54 uIU/mL 0.358-3.74 [facility] Troponin I High Sensitivity 4 pg/mL 3.0-54.0 [facility] Comment on above: Please Note: New Ananth t Units and Gender Specific Reference Ranges. For more information see Policy Stat Procedure [place] High Sensitivity Troponin (TNIH) and attachments. Platelets bldOrdered By: Romina Kendall on 08-05-2023 Platelets (Bld) [#/Vol] 190 10*3/uL 150-450 [facility] Serum or plasma calcium sharron urement (mass/volume)Ordered By: Niurka Kendall on 08-05-2023 Calcium [Mass/Vol] 8.5 mg/dL 8.5-10.1 [facility] Serum or plasma creatinine m easurement (mass/volume)Ordered By: Niurka Kendall on 08-05-2023 Creatinine [Mass/Vol] 0.72 mg/dL 0.55-1.02 [facility] Comment on above: The validity of the calculated GFR & GFRAA in patients over 70 years has not been determined. Clinical correlation is essential. Serum or plasma urea nitroge n measurement (mass/volume)Ordered By: Niurka Kendall on 08-05-2023 Urea nitrogen [Mass/Vol] 15 mg/dL 7-18 [facility] Thin prep Papanicolaou smear with manual screeningOrdered By: Niurka Kendall on 08-05-2023 Thin prep Papanicolaou smear with manual screening 6 5-15 [facility] Whole blood hemoglobin A1c/t otal hemoglobin ratio (mass fraction)Ordered By: Sosa Mendez on 08-05-2023 HbA1c (Bld) [Mass fraction] 6.6 % 3.8-5.6 [facility] Comment on above: Normal < 5.7 % Predi abetic 5.7 - 6.4 % Diabetic >or= 6.5 % Please note range changes. XR Foot - right AP and Later al and obliqueon 05-28-2023 IMPRESSION: No acute osseous abnormalities are identified. Calcaneal spurring. [facility] Transcribe Date/Time: May 28 2023 11:55A Dictated by : BRITTANY MCCANN MD This examination was interpreted and the report reviewed and electronically signed by: BRITTANY MCCANN MD on May 28 2023 11:56AM [facility] DIVISION OF RADIOLOGY * * *Final Report* [...] and calcaneal enthesophytes. DIVISION OF RADIOLOGY Provider, [facility] [place] - 05/28/2023 * * *Final Report* * [...] acute osseous abnormalities are identified. Calcaneal spurring. Solution Lead: DIANE Transcribe Date/Time: May 28 2023 11:55A Dictated by : BRITTANY MCCANN MD This examination was interpreted and the report reviewed and electronically signed by: BRITTANY MCCANN MD on May 28 2023 11:56AM EST [facility] Radiology Study observation (narrative) [facility] XR Foot - right AP and Later al and obliqueOrdered By: Ccf Provider on 05-28-2023 [facility] Absolute lymphocyte countOrd ered By: Dr. Grimes on 03-04-2023 Lymphocytes Auto (Unsp spec) [#/Vol] 2.34 10*3/uL 0.83-4.51 [facility] Basophil percentageOrdered B y: Dr. Grimes on 03-04-2023 Basophils/100 WBC (Bld) 1.0 % 0-1 [facility] Chloride [Moles/Vol] 109 mmol/L 98-107 [facility] Eosinophils/100 WBC (Bld) 2.3 % 0-5 [facility] Glucose [Mass/Vol] 142 mg/dL 74-106 [facility] Comment on above: Fasting Glucose resu lt greater than or equal to 126 mg/dL suggests DIABETES MELLITUS per A.D.A. criteria. Neutrophils (Bld) [#/Vol] 5.6 10*3/uL 2.0-7.7 [facility] Neutrophils/100 WBC (Bld) 63.9 % 47-70 [facility] Potassium [Moles/Vol] 3.9 mmol/L 3.5-5.1 [facility] Sodium [Moles/Vol] 138 mmol/L 136-145 [facility] WBC (Bld) [#/Vol] 8.8 10*3/uL 4.4-11.0 [facility] Blood erythrocytes count (nu mber/volume)Ordered By: Dr. Grimes on 03-04-2023 RBC (Bld) [#/Vol] 4.38 10*6/uL 4.2-5.4 [facility] Blood hemoglobin measurement (mass/volume)Ordered By: Dr. Grimes on 03-04-2023 Hemoglobin (Bld) [Mass/Vol] 14.1 g/dL 12.0-15.0 [facility] Blood lymphocytes/100 leukoc ytesOrdered By: Dr. Grimes on 03-04-2023 Lymphocytes/100 WBC (Bld) 26.5 % 19-41 [facility] Blood monocytes/100 leukocyt esOrdered By: Dr. Grimes on 03-04-2023 Monocytes/100 WBC (Bld) 4.6 % 0-10 [facility] Blood platelet mean volumeOr dered By: Dr. Grimes on 03-04-2023 Platelet mean volume (Bld) [Entitic vol] 9.5 fL 6.2-12.0 [facility] Determination of erythrocyte mean corpuscular volume (MCV)Ordered By: Dr. Grimes on 03-04-2023 MCV (RBC) [Entitic vol] 96.8 fL 81-99 [facility] Hematocrit Auto (Bld) [Volum e fraction]Ordered By: Dr. Grimes on 03-04-2023 Hematocrit (Bld) [Volume fraction] 42.4 % 37-47 [facility] Iron measurement (mass/mass) Ordered By: Dr. Grimes on 03-04-2023 Iron (Unsp spec) [Mass/Mass] 92 ug/dL 50-170 [facility] Laboratory - Chemistry and C hemistry - challengeOrdered By: Dr. Grimes on 03-04-2023 CO2 [Moles/Vol] 21.0 mmol/L 21.0-32.0 [facility] Magnesium [Mass/Vol] 1.7 mg/dL 1.6-2.6 [facility] Urea nitrogen/Creatinine [Mass ratio] 17.1 mg/mg 10-20 [facility] Laboratory - Hematology and Cell countsOrdered By: Dr. Grimes on 03-04-2023 Erythrocyte distribution width (RBC) [Entitic vol] 48.1 fL 35.1-43.9 [facility] Erythrocyte distribution width (RBC) [Ratio] 13.3 % 11.6-14.6 [facility] Immature granulocytes/100 WBC (Bld) 1.700 % 0.0-0.9 [facility] Comment on above: IG% - Immature Granu locytes (promyelocytes, myelocytes and metamyelocytes) > 1% indicates that a LEFT SHIFT is Present. MCH (RBC) [Entitic mass] 32.2 pg 27.0-32.0 [facility] Nucleated RBC/100 WBC (Bld) [Ratio] 0 % 0-5 [facility] MCHC Auto (RBC) [Mass/Vol]Or dered By: Dr. Grimes on 03-04-2023 MCHC (RBC) [Mass/Vol] 33.3 g/dL 32-36 [facility] No Panel InformationOrdered By: Dr. Grimes on 03-04-2023 Urine Microalbumin/Creatinine Ratio 63.0 mg/g CRE <30 [facility] Estimated GFR (MDRD) Amer 99 mL/min >60 [facility] Comment on above: GFR Calc Estimated GFR (MDRD) Non-Af Amer 82 mL/min >60 [facility] Comment on above: Non- GFR Calc Total Iron Binding Capacity 323 ug/dL 250-450 [facility] Platelets bldOrdered By: Dr. Grimes on 03-04-2023 Platelets (Bld) [#/Vol] 214 10*3/uL 150-450 [facility] Serum or plasma calcium sharron urement (mass/volume)Ordered By: Dr. Grimes on 03-04-2023 Calcium [Mass/Vol] 8.4 mg/dL 8.5-10.1 [facility] Serum or plasma creatinine m easurement (mass/volume)Ordered By: Dr. Grimes on 03-04-2023 Creatinine [Mass/Vol] 0.82 mg/dL 0.55-1.02 [facility] Comment on above: The validity of the calculated GFR & GFRAA in patients over 70 years has not been determined. Clinical correlation is essential. Serum or plasma iron saturat ion measurement (mass fraction)Ordered By: Dr. Grimes on 03-04-2023 Iron saturation [Mass fraction] 28.5 % 15.0-55.0 [facility] Serum or plasma urea nitroge n measurement (mass/volume)Ordered By: Dr. Grimes on 03-04-2023 Urea nitrogen [Mass/Vol] 14 mg/dL 7-18 [facility] Thin prep Papanicolaou smear with manual screeningOrdered By: Dr. Grimes on 03-04-2023 Thin prep Papanicolaou smear with manual screening 133.0 mg/L NO RANGE EST. [facility] Thin prep Papanicolaou smear with manual screening 8 5-15 [facility] Urine creatinine measurement (mass/volume)Ordered By: Dr. Grimes on 03-04-2023 Creatinine (U) [Mass/Vol] 211.00 mg/dL NO RANGE EST. [facility] Whole blood hemoglobin A1c/t otal hemoglobin ratio (mass fraction)Ordered By: Dr. Grimes on 03-04-2023 HbA1c (Bld) [Mass fraction] 6.1 % 3.8-5.6 [facility] Comment on above: Normal < 5.7 % Predi abetic 5.7 - 6.4 % Diabetic >or= 6.5 % Please note range changes. No Panel Informationon 02-28 [facility] CNCOon 01-24-2023 CNCO Letter Text Normal [facility] CNOVon 01-24-2023 CNOV Office Visit (SPAGWO) ---- TORI GRAY ([id number]) 1980 F Date Time Provider Department 01/24/23 10:30 AM ELLE RASHEED During your visit today, we recorded the following information about you: Pulse Respiration Last Period 64/minute 16/minute 01/02/23 Elle Rasheed MD 01/24/2023 11:07 AM Signed [facility] Name: Tori Gray : 1980 Purpose: Follow-up, discuss SPRINT Today's Date: 01/24/2023 Last Visit: 11/08/2022 (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 Normal [facility] CNPIliana 01-24-2023 CNPN Telephone (SPAGWO) ---- TORI GRAY ([id number]) 1980 F Date Time Provider Department 01/24/23 [...] needed for wheezing/shortness of breath. - fexofenadine (AMLA ALLERGY) 180 mg tablet Take 1 tablet by mouth once daily. - omeprazole (PRILOSEC) 20 mg capsule Take 1 capsule by mouth daily before breakfast. 1/2 hr before meal. - levonorgestrel (KYLEENA) 17.5 mcg/24 hrs (5 yrs) 19.5 mg IUD 1 Each by INTRAUTERINE route as directed. - Ipratropium Kiln (ATROVENT) 0.03 % nasal spray Use 2 Sprays in the nose every 12 hours. - metroNIDAZOLE (METROGEL) 0.75 % Topical Gel Apply to affected area twice daily. - Dazey-3 Fatty Acids (FISH OIL) 500 mg cap Take 1 capsule by mouth once daily. - blood sugar diagnostic (BLOOD GLUCOSE TEST) test strip Test blood sugar(s) 1 times daily. Dx: Type 2 DM - Controlled E11.9 Insulin: Yes - Lancets lancets Test blood sugar(s) 1 times daily. Dx: Type 2 DM - Controlled E11.9 Insulin: No - Fnhmggli-Ze-Sef-Fe- FA tab Take 1 tablet by mouth [...] Routine general medical examination at [facility]*01/23/2010 12/06/2012 Class: Chronic Routine gynecological examination [Z01.419] 01/23/2010 02/22/2014 Class: Chronic Morbid Obesity [E66.01] 01/23/2010 Lumbar Disc Disorder [M51.9] 02/16/2010 (more content not included)... Normal [facility] HCG ( test) Ql (U)o n 01-02-2023 Specific gravity (U) [Rel density] 1.010 Normal 1.005-1.030 [facility] Comment on above: Order Comment: Speci men Type: URINE SPECIMENOrdering Facility: [facility] Address: [address] [place], [place] [address] [place] [address] Performed By: #### 2 106-3 ####[facility] [id number] [place] [id number] [facility] HCG Preg Ur Qlon 01-02-2023 HCG ( test) Ql (U) Negative Normal Negative [facility] Comment on above: Order Comment: Speci men Type: URINE SPECIMENOrdering Facility: [facility] Address: [place] [address] Result Comment: This test is intended to aid in the early detection of . Very dilute urine samples, as indicated by a low specific gravity, may not contain medical center representative levels of hCG. This test detects [...] for . Performed By: #### 2 106-3 ####[facility] [id number] [place] [address] [facility] HISTORY PHYSICALon HISTORY PHYSICAL HNO ID: [id number] Author: Elle Rasheed MD Service: Pain Management [...] 1/2 hr before meal. Unknown Yes Ipratropium Kiln (ATROVENT) 0.03 % nasal spray Use 2 Sprays in the nose every 12 hours. Unknown Yes Dazey-3 Fatty Acids (FISH OIL) 500 mg cap Take 1 capsule by mouth once daily. Patient taking differently: Take 1 tablet by mouth once daily. 1200 mg 01/02/2023 Yes blood sugar diagnostic (BLOOD GLUCOSE TEST) test strip Test blood sugar(s) 1 times daily. Dx: Type 2 DM - Controlled E11.9 Insulin: Yes Yes Tesoczrj-Qs-Gmg-Fe- FA tab Take 1 tablet by mouth [...] 2023 TIME: 11:00 AM Normal [facility] OPERATIVE NOon 01-02-2023 OPERATIVE NO HNO ID: [id number] Author: Elle Rasheed MD Service: Pain Management Author Type: Physician Type: Operative Report Filed: 01/02/2023 11:29 AM Note Text: OPERATIVE/PROCEDURE REPORT LOG ID: [id number] SURGERY/PROCEDURE DATE: 01/02/2023 INCISION/PROCEDURE START TIME: 11:18 AM INCISION CLOSE/PROCEDURE END TIME: 11:25 AM SURGEON(S)/PROCEDBRYSON WEST(S) AND CARTOON ANIMATOR(S): Surgeon(s) and Role: * Elle Rasheed MD [...] AM [facility] Hany 11-29-2022 [facility] Telephone (AGSPINE3) ---- TORI GRAY ([id number]) 1980 F Date Time Provider Department 11/29/22 ELLE ARSHEED AGSPINE3 During your visit today, we recorded the following information about you: Darrion Barahona 11/29/2022 2:40 PM Signed Patient has left a voicemail stating that she had fallen over the weekend and has a concussion. She is wondering if she should reschedule her appointment for 12/05/22 with you in [place] as she is not sure if this [...] to reschedule out to January 02 at [place], message has been sent to [place]. Darrion Shah Allergies As of Date: 11/29/2022 Noted Allergy Reaction LIDOCAINE 12/24/2019 4 - Hives STEROIDS (BETAMETHASONE DIPROPION* 2 4 - Hives Date Reviewed: 11/27/2022 Reviewed by: Dennise Robles - Fully Assessed Reason for Visit: Patient Question [5497] Cmt: [place] appointment on 12/05/22 Prescriptions as of 11/30/2022 [...] by INTRAUTERINE route as directed. - Ipratropium Kiln (ATROVENT) 0.03 % nasal spray Use 2 Sprays in the nose every 12 hours. - metroNIDAZOLE (METROGEL) 0.75 % Topical Gel Apply to affected area twice daily. - Dazey-3 Fatty Acids (FISH OIL) 500 mg cap Take 1 capsule by mouth once daily. - blood sugar diagnostic (BLOOD GLUCOSE TEST) test strip Test blood sugar(s) 1 times daily. Dx: Type 2 DM - Controlled E11.9 Insulin: Yes - Lancets lancets Test blood sugar(s) 1 times daily. Dx: Type 2 DM - Controlled E11.9 Insulin: No - Lotvbhpk-Fx-Dcr-Fe- FA tab Take 1 tablet by mouth [...] (more content not included)... Normal [facility] Glucose Glucometer (BldC) [M ass/Vol]Ordered By: Dr. Shabazz on 11-24-2022 Glucose [Mass/Vol] 89 mg/dL 74-106 [facility] Comment on above: MANAGEMENT OF PATIREUBEN T CARE PER NURSING PROTOCOL CNOVon 11-08-2022 CNOV Office Visit (SPAGWO) ---- TORI GRAY ([id number]) 1980 F Date Time Provider Department 11/08/22 1:30 PM ADELINA MARINELLI During your visit today, we recorded the following information about you: Pulse Respiration 70/minute 14/minute Gloria hO [place] 11/08/2022 1:55 PM Signed Review of [...] The patient is not nervous/anxious. Adelina Marinelli APRN.TERRITORY SALES PROFESSIONAL 11/08/2022 1:55 PM Signed [facility] General Today's Date: 11/08/2022 Last Visit: 07/19/22 [...] moderately severe depression, (20-27) severe depression [facility]. All prescriptions have been APPROPRIATELY filled. No suspicious activity was identified. 11/08/2022 by Adelina Marinelli APRN.TERRITORY SALES PROFESSIONAL Allergies: ALLERGIES Allergen Reactions Lidocaine Hives Steroids [...] (more content not included)... Normal [facility] Hany 11-08-2022 CNPN Telephone (SPAGWO) ---- TORI GRAY ([id number]) 1980 F Date Time Provider Department 11/08/22 [...] No 9. Does this procedure require a hazmat cdl a driver? Yes If yes, has patient been notified that a hazmat cdl a driver is needed and must be present [...] Date Reviewed: 11/08/2022 Reviewed by: Adelina Marinelli APRN.TERRITORY SALES PROFESSIONAL - Fully Assessed Reason for Visit: Injections [...] by INTRAUTERINE route as directed. - Ipratropium Kiln (ATROVENT) 0.03 % nasal spray Use 2 Sprays in the nose every 12 hours. - metroNIDAZOLE (METROGEL) 0.75 % Topical Gel Apply to affected area twice daily. - Dazey-3 Fatty Acids (FISH OIL) 500 mg cap Take 1 capsule by mouth once daily. - blood sugar diagnostic (BLOOD GLUCOSE TEST) test strip Test blood sugar(s) 1 times daily. Dx: Type 2 DM - Controlled E11.9 Insulin: Yes - Lancets lancets Test blood sugar(s) 1 times daily. Dx: Type 2 DM - Controlled E11.9 Insulin: No - Wmabbzda-Gz-Pdl-Fe- FA tab Take 1 tablet by mouth [...] (more content not included)... Normal [facility] (AGSPINE2) ---- TORI GRAY ([id number]) 1980 F Date Time Provider Department 10/02/22 [...] spoke with and scheduled with Adelina in [place] beginning of the year. Adriana Licona Allergies As of Date: 10/02/2022 Noted Allergy Reaction LIDOCAINE 12/24/2019 4 - Hives STEROIDS (BETAMETHASONE DIPROPION* 2 4 - Hives Date Reviewed: 09/04/2022 Reviewed by: Dennise Robles - Fully Assessed Reason for Visit: Appointment [[id number]] Patient Question [[id number]] Prescriptions as of 10/02/2022 - tiZANidine (ZANAFLEX) [...] bed with current PAP mask. - Ipratropium Kiln (ATROVENT) 0.03 % nasal spray Use 2 Sprays in the nose every 12 hours. - metroNIDAZOLE (METROGEL) 0.75 % Topical Gel Apply to affected area twice daily. - Dazey-3 Fatty Acids (FISH OIL) 500 mg cap Take 1 capsule by mouth once daily. - blood sugar diagnostic (BLOOD GLUCOSE TEST) test strip Test blood sugar(s) 1 times daily. Dx: Type 2 DM - Controlled E11.9 Insulin: Yes - Lancets lancets Test blood sugar(s) 1 times daily. Dx: Type 2 DM - Controlled E11.9 Insulin: No - Cgldesdt-Re-Ate-Fe- FA tab Take 1 tablet by mouth [...] Routine general medical examination at [facility]*01/23/2010 12/06/2012 Class: Chronic Routine gynecological examination [Z01.419] 01/23/2010 02/22/2014 Class: Chronic Morbid Obesity [E66.01] 01/23/2010 Lumbar Disc Disorder [M51.9] 02/16/2010 Routine general medical examination at [facility]*12/06/2012 02/22/2014 Anxiety [F41.9] 06/07/2014 Type 2 [...] (more content not included)... Normal [facility] Absolute lymphocyte countOrd ered By: Dr. Grimes on 09-06-2022 Lymphocytes Auto (Unsp spec) [#/Vol] 2.67 10*3/uL 0.83-4.51 [facility] Basophil percentageOrdered B y: Dr. Grimes on 09-06-2022 Basophils/100 WBC (Bld) 0.5 % 0-1 [facility] Chloride [Moles/Vol] 110 mmol/L 98-107 [facility] Eosin[facility]/100 WBC (Bld) 2.1 % 0-5 [facility] Glucose [Mass/Vol] 120 mg/dL 74-106 [facility] Comment on above: Fasting Glucose resu lt from 100 to 125 mg/dL suggests IMPAIRED HOMEOSTASIS per A.D.A. criteria. Neutrophils (Bld) [#/Vol] 6.2 10*3/uL 2.0-7.7 [facility] Neutrophils/100 WBC (Bld) 64.2 % 47-70 [facility] Potassium [Moles/Vol] 3.6 mmol/L 3.5-5.1 [facility] Sodium [Moles/Vol] 139 mmol/L 136-145 [facility] WBC (Bld) [#/Vol] 9.6 10*3/uL 4.4-11.0 [facility] Blood erythrocytes count (nu mber/volume)Ordered By: Dr. Grimes on 09-06-2022 RBC (Bld) [#/Vol] 4.29 10*6/uL 4.2-5.4 [facility] Blood hemoglobin measurement (mass/volume)Ordered By: Dr. Grimes on 09-06-2022 Hemoglobin (Bld) [Mass/Vol] 13.6 g/dL 12.0-15.0 [facility] Blood lymphocytes/100 leukoc ytesOrdered By: Dr. Grimes on 09-06-2022 Lymphocytes/100 WBC (Bld) 27.8 % 19-41 [facility] Blood monocytes/100 leukocyt esOrdered By: Dr. Grimes on 09-06-2022 Monocytes/100 WBC (Bld) 4.3 % 0-10 [facility] Blood platelet mean volumeOr dered By: Dr. Grimes on 09-06-2022 Platelet mean volume (Bld) [Entitic vol] 9.6 fL 6.2-12.0 [facility] Determination of erythrocyte mean corpuscular volume (MCV)Ordered By: Dr. Grimes on 09-06-2022 MCV (RBC) [Entitic vol] 90.2 fL 81-99 [facility] Hematocrit Auto (Bld) [Volum e fraction]Ordered By: Dr. Grimes on 09-06-2022 Hematocrit (Bld) [Volume fraction] 38.7 % 37-47 [facility] Laboratory - Chemistry and C hemistry - challengeOrdered By: Dr. Grimes on 09-06-2022 CO2 [Moles/Vol] 23.0 mmol/L 21.0-32.0 [facility] Urea nitrogen/Creatinine [Mass ratio] 15.9 mg/mg 10-20 [facility] Laboratory - Hematology and Cell countsOrdered By: Dr. Grimes on 09-06-2022 Erythrocyte distribution width (RBC) [Entitic vol] 42.5 fL 35.1-43.9 [facility] Erythrocyte distribution width (RBC) [Ratio] 12.9 % 11.6-14.6 [facility] Immature granulocytes/100 WBC (Bld) 1.100 % 0.0-0.9 [facility] Comment on above: IG% - Immature Granu locytes (promyelocytes, myelocytes and metamyelocytes) > 1% indicates that a LEFT SHIFT is Present. MCH (RBC) [Entitic mass] 31.7 pg 27.0-32.0 [facility] Nucleated RBC/100 WBC (Bld) [Ratio] 0 % 0-5 [facility] MCHC Auto (RBC) [Mass/Vol]Or dered By: Dr. Grimes on 09-06-2022 MCHC (RBC) [Mass/Vol] 35.1 g/dL 32-36 [facility] No Panel InformationOrdered By: Dr. Grimes on 09-06-2022 Estimated GFR (MDRD) Amer 100 mL/min >60 [facility] Comment on above: GFR Calc Estimated GFR (MDRD) Non-Af Amer 82 mL/min >60 [facility] Comment on above: Non- GFR Calc Thyroid Stimulating Hormone (TSH) 1.56 uIU/mL 0.358-3.74 [facility] Platelets bldOrdered By: Dr. Grimes on 09-06-2022 Platelets (Bld) [#/Vol] 190 10*3/uL 150-450 [facility] Serum or plasma calcium sharron urement (mass/volume)Ordered By: Dr. Grimes on 09-06-2022 Calcium [Mass/Vol] 8.7 mg/dL 8.5-10.1 [facility] Serum or plasma creatinine m easurement (mass/volume)Ordered By: Dr. Grimes on 09-06-2022 Creatinine [Mass/Vol] 0.82 mg/dL 0.55-1.02 [facility] Comment on above: The validity of the calculated GFR & GFRAA in patients over 70 years has not been determined. Clinical correlation is essential. Serum or plasma urea nitroge n measurement (mass/volume)Ordered By: Dr. Grimes on 09-06-2022 Urea nitrogen [Mass/Vol] 13 mg/dL 7-18 [facility] Thin prep Papanicolaou smear with manual screeningOrdered By: Dr. Grimes on 09-06-2022 Thin prep Papanicolaou smear with manual screening 6 5-15 [facility] Laboratory - Chemistry and C hemistry - challengeOrdered By: Dr. Guerrero on 08-29-2022 Magnesium [Mass/Vol] 1.7 mg/dL 1.6-2.6 [facility] Basophil percentageOrdered B y: Dr. Grimes on 08-08-2022 Cholesterol [Mass/Vol] 168 mg/dL <200 [facility] Comment on above: <200 mg/dL Desirable 200-240 mg/dL Borderline >240 mg/dL High Risk Triglyceride [Mass/Vol] 176 mg/dL <199 [facility] Comment on above: The drugs N-Acetylcy steine and Metamizole may falsely depress this assay.Serum Triglycerides Reference Interval Normal <150 mg/dL Borderline high 150 - 199 mg/dL High 200 - 499 mg/dL Very High > or = 500 mg/dL Hany 08-08-2022 T[facility] Telephone (AGSPHWG) ---- TORI GRAY ([id number]) 1980 F Date Time Provider Department 08/08/22 [...] Date Reviewed: 07/19/2022 Reviewed by: Karen Bansal APRN.TERRITORY SALES PROFESSIONAL - Fully Assessed Reason for Visit: Patient [...] bed with current PAP mask. - Ipratropium Kiln (ATROVENT) 0.03 % nasal spray Use 2 Sprays in the nose every 12 hours. - metroNIDAZOLE (METROGEL) 0.75 % Topical Gel Apply to affected area twice daily. - Dazey-3 Fatty Acids (FISH OIL) 500 mg cap Take 1 capsule by mouth once daily. - blood sugar diagnostic (BLOOD GLUCOSE TEST) test strip Test blood sugar(s) 1 times daily. Dx: Type 2 DM - Controlled E11.9 Insulin: Yes - Lancets lancets Test blood sugar(s) 1 times daily. Dx: Type 2 DM - Controlled E11.9 Insulin: No - Eriwzzpi-Hf-Zkg-Fe- FA tab Take 1 tablet by mouth [...] Routine general medical examination at [facility]*01/23/2010 12/06/2012 Class: Chronic Routine gynecological examination [Z01.419] 01/23/2010 02/22/2014 Class: Chronic Morbid Obesity [E66.01] 01/23/2010 Lumbar Disc Disorder [M51.9] 02/16/2010 Routine general medical examination at [facility]*12/06/2012 02/22/2014 Anxiety [F41.9] 06/07/2014 Type 2 diabetes mellitus with microalbuminuria,*0 07/04/2018 Fatty liver [K76.0] 07/21/2018 LETITIA (obstructive sleep apnea) [G47.33] 07/21/2018 Microalbuminuria [R80.9] 09/30/2018 Obesity, Class III, BMI >= 40 [E66.01] 11/26/2019 Prolonged Q-T interval on ECG [R94.31] 03/31/2020 Encounter Status:Closed by ADELINA MARINELLI on 08/08/22 [facility] No Panel InformationOrdered By: Dr. Grimes on 08-08-2022 Thyroid Stimulating Hormone (TSH) 3.38 uIU/mL 0.358-3.74 [facility] Serum or plasma cholesterol in HDL measurement (mass/volume)Ordered By: Dr. Grimes on 08-08-2022 Cholesterol in HDL [Mass/Vol] 37 mg/dL >40 [facility] Comment on above: The drugs N-Acetylcy steine and Metamizole may falsely depress this assay. Reference Range HDL <40 mg/dL Low HDL Cholesterol HDL >or= 60 mg/dL High HDL Cholesterol Serum or plasma cholesterol in VLDL measurement (mass/volume)Ordered By: Dr. Grimes on 08-08-2022 Cholesterol in VLDL [Mass/Vol] 35 mg/dL 5-40 [facility] Serum or plasma low density lipoprotein (LDL) cholesterol measurement (mass/volume)Ordered By: Dr. Grimes on 08-08-2022 Cholesterol in LDL [Mass/Vol] 96 mg/dL 0-130 [facility] Whole blood hemoglobin A1c/t otal hemoglobin ratio (mass fraction)Ordered By: Dr. Grimes on 08-08-2022 HbA1c (Bld) [Mass fraction] 5.3 % 3.8-5.6 [facility] Comment on above: Normal < 5.7 % Predi abetic 5.7 - 6.4 % Diabetic >or= 6.5 % Please note range changes. Anuj 07-19-2022 CNCO Letter Text [facility] CNOVon 07-19-2022 CNOV Office Visit (SPAGWO) ---- TORI GRAY ([id number]) 1980 F Date Time Provider Department 07/19/22 [...] The patient is not nervous/anxious. Adelina Marinelli APRN.TERRITORY SALES PROFESSIONAL 07/19/2022 10:17 AM Signed [facility] Today's Date: 07/19/2022 Last Visit: 05/24/22 [...] (A) 74 - 99 mg/dL Final Comment: Location:[facility], [address] [place] [address], [facility] The Accu-Chek Inform II glucose meter [...] activity was identified. 07/19/2022 by Adelina Marinelli APRN.[facility] Last Drug screen: Not Applicable Risk Assessment: VAHE-7: (more content not included)... Normal [facility] CNPIliana 07-19-2022 CNPN Telephone (SPAGWO) ---- TORI GRAY ([id number]) 1980 F Date Time Provider Department 07/19/22 [...] year? Yes If yes, When and Where? [place], currently attending (Medical Records Release needs to [...] Date Reviewed: 07/19/2022 Reviewed by: Adelina Marinelli APRN.TERRITORY SALES PROFESSIONAL - Fully Assessed Reason for Visit: Patient [...] bed with current PAP mask. - Ipratropium Kiln (ATROVENT) 0.03 % nasal spray Use 2 Sprays in the nose every 12 hours. - metroNIDAZOLE (METROGEL) 0.75 % Topical Gel Apply to affected area twice daily. - Dazey-3 Fatty Acids (FISH OIL) 500 mg cap Take 1 capsule by mouth once daily. - blood sugar diagnostic (BLOOD GLUCOSE TEST) test strip Test blood sugar(s) 1 times daily. Dx: Type 2 DM - Controlled E11.9 Insulin: Yes - Lancets lancets Test blood sugar(s) 1 times daily. Dx: Type 2 DM - Controlled E11.9 Insulin: No - Kkekktss-Dk-Msa-Fe- FA tab Take 1 tablet by mouth [...] Routine general medical examination at [facility]*01/23/2010 12/06/2012 Class: Chronic Routine gynecological examination [Z01.419] 01/23/2010 02/22/2014 Class: Chronic Morbid Obesity [E66.01] 01/23/2010 Lumbar Disc Disorder [M51.9] 02/16/2010 Routine general medical examination at [facility]*12/06/2012 02/22/2014 Anxiety [F41.9] 06/07/2014 Type 2 diabetes mellitus with microalbuminuria,*0 07/04/2018 Fatty liver [K76.0] 07/21/2018 LETITIA (obstructive sleep apnea) [G47 (more content not included)... Normal [facility] Absolute lymphocyte counton 06-05-2022 Lymphocytes Auto (Unsp spec) [#/Vol] 2.26 10*3/uL 0.83-4.51 [facility] Work Phone: Absolute reticulocyte counto n 06-05-2022 Reticulocytes (Bld) [#/Vol] 0.00 10*3/uL 0-5 [facility] Work Phone: Basophil percentageon 2021 Basophil percentage 3.4 mg/dL 2.5-4.9 [facility] Work Phone: Bilirubin [Mass/Vol] 0.60 mg/dL 0.20-1.00 [facility] Work Phone: Comment on above: For patients on eltr ombopag therapy, use of Dimension [place] TBIL is not recommended. Chloride [Moles/Vol] 108 mmol/L 98-107 [facility] Work Phone: Cholesterol [Mass/Vol] 180 mg/dL <200 [facility] Work Phone: Comment on above: <200 mg/dL Desirable 200-240 mg/dL Borderline >240 mg/dL High Risk Glucose [Mass/Vol] 100 mg/dL 74-106 [facility] Work Phone: Comment on above: Fasting Glucose resu lt from 100 to 125 mg/dL suggests IMPAIRED HOMEOSTASIS per A.D.A. criteria. Neutrophils (Bld) [#/Vol] 5.5 10*3/uL 2.0-7.7 [facility] Work Phone: Potassium [Moles/Vol] 3.6 mmol/L 3.5-5.1 [facility] Work Phone: Protein [Mass/Vol] 8.2 g/dL 6.4-8.2 [facility] Work Phone: Sodium [Moles/Vol] 137 mmol/L 136-145 [facility] Work Phone: Triglyceride [Mass/Vol] 418 mg/dL <199 [facility] Work Phone: Comment on above: The drugs N-Acetylcy steine and Metamizole may falsely depress this assay. TRIGLYCERIDE IS GREATER THAN 400 mg/dL. LDL RESULT IS INVALID AND WILL NOT BE REPORTED.Serum Triglycerides Reference Interval Normal <150 mg/dL Borderline high 150 - 199 mg/dL High 200 - 499 mg/dL Very High > or = 500 mg/dL WBC (Bld) [#/Vol] 8.6 10*3/uL 4.4-11.0 [facility] Work Phone: Bilirubin Test strip Ql (U)o n 06-05-2022 Bilirubin Ql (U) Negative Negative [facility] Work Phone: Blood erythrocytes count (nu mber/volume)on 06-05-2022 RBC (Bld) [#/Vol] 4.49 10*6/uL 4.2-5.4 [facility] Work Phone: Blood hemoglobin measurement (mass/volume)on 06-05-2022 Hemoglobin (Bld) [Mass/Vol] 14.0 g/dL 12.0-15.0 [facility] Work Phone: Blood platelet mean volumeon 06-05-2022 Platelet mean volume (Bld) [Entitic vol] 9.2 fL 6.2-12.0 [facility] Work Phone: Determination of erythrocyte mean corpuscular volume (MCV)on 06-05-2022 MCV (RBC) [Entitic vol] 92.7 fL 81-99 [facility] Work Phone: Direct bilirubinon Bilirubin.direct [Mass/Vol] 0.11 mg/dL 0.00-0.30 [facility] Work Phone: Hematocrit Auto (Bld) [Volum e fraction]on 06-05-2022 Hematocrit (Bld) [Volume fraction] 41.6 % 37-47 [facility] Work Phone: Ketones Test strip Ql (U)on 06-05-2022 Ketones Ql (U) Negative Negative [facility] Work Phone: Laboratory - Chemistry and C hemistry - challengeon 06-05-2022 ALP [Catalytic activity/Vol] 73 U/L 45-117 [facility] Work Phone: ALT [Catalytic activity/Vol] 24 U/L 13-56 [facility] Work Phone: Cholesterol.total/Choles terol in HDL [Mass ratio] 5.50 {ratio} [facility] Work Phone: CO2 [Moles/Vol] 25.0 mmol/L 21.0-32.0 [facility] Work Phone: Globulin (S) [Mass/Vol] 4.1 g/dL 2.2-4.2 [facility] Work Phone: Urea nitrogen/Creatinine [Mass ratio] 16.6 mg/mg 10-20 [facility] Work Phone: Laboratory - Hematology and Cell countson 06-05-2022 Erythrocyte distribution width (RBC) [Entitic vol] 44.2 fL 35.1-43.9 [facility] Work Phone: Erythrocyte distribution width (RBC) [Ratio] 13.2 % 11.6-14.6 [facility] Work Phone: MCH (RBC) [Entitic mass] 31.2 pg 27.0-32.0 [facility] Work Phone: Nucleated RBC/100 WBC (Bld) [Ratio] 0 % 0-5 [facility] Work Phone: MCHC Auto (RBC) [Mass/Vol]on 06-05-2022 MCHC (RBC) [Mass/Vol] 33.7 g/dL 32-36 [facility] Work Phone: Nitrite Test strip Ql (U)on 06-05-2022 Nitrite Ql (U) Negative Negative [facility] Work Phone: No Panel Informationon 06-05 Estimated GFR (MDRD) Amer 115 mL/min >60 [facility] Work Phone: Comment on above: GFR Calc Estimated GFR (MDRD) Non-Af Amer 95 mL/min >60 [facility] Work Phone: Comment on above: Non- GFR Calc Platelets bldon 06-05-2022 Platelets (Bld) [#/Vol] 200 10*3/uL 150-450 [facility] Work Phone: Protein Test strip Ql (U)on 06-05-2022 Protein Ql (U) 15 mg/dl Negative [facility] Work Phone: Segmented neutrophils/100 WB C Auto (Bld)on 06-05-2022 Segmented neutrophils/100 WBC (Bld) 64.3 % 47-70 [facility] Work Phone: Serum or plasma albumin sharron urement (mass/volume)on 06-05-2022 Albumin [Mass/Vol] 4.1 g/dL 3.2-5.0 [facility] Work Phone: Serum or plasma albumin/glob ulin mass ratioon 06-05-2022 Albumin/Globulin [Mass ratio] 1.0 {ratio} 0.9-2.4 [facility] Work Phone: Serum or plasma calcium sharron urement (mass/volume)on 06-05-2022 Calcium [Mass/Vol] 8.7 mg/dL 8.5-10.1 [facility] Work Phone: Serum or plasma cholesterol in HDL measurement (mass/volume)on 06-05-2022 Cholesterol in HDL [Mass/Vol] 33 mg/dL >40 [facility] Work Phone: Comment on above: The drugs N-Acetylcy steine and Metamizole may falsely depress this assay. Reference Range HDL <40 mg/dL Low HDL Cholesterol HDL >or= 60 mg/dL High HDL Cholesterol Serum or plasma cholesterol in VLDL measurement (mass/volume)on 06-05-2022 Cholesterol in VLDL [Mass/Vol] TNP [facility] Work Phone: Comment on above: Test not performed Serum or plasma creatinine m easurement (mass/volume)on 06-05-2022 Creatinine [Mass/Vol] 0.72 mg/dL 0.55-1.02 [facility] Work Phone: Comment on above: The validity of the calculated GFR & GFRAA in patients over 70 years has not been determined. Clinical correlation is essential. Serum or plasma low density lipoprotein (LDL) cholesterol measurement (mass/volume)on 06-05-2022 Cholesterol in LDL [Mass/Vol] TNP [facility] Work Phone: Comment on above: Test not performed Serum or plasma urea nitroge n measurement (mass/volume)on 06-05-2022 Urea nitrogen [Mass/Vol] 12 mg/dL 7-18 [facility] Work Phone: Serum or plasma uric acid me asurement (mass/volume)on 06-05-2022 Urate [Mass/Vol] 5.6 mg/dL 2.6-6.0 [facility] Work Phone: Comment on above: The drugs N-Acetylcy steine and Metamizole may falsely depress this assay. Thin prep Papanicolaou smear with manual screeningon 06-05-2022 Thin prep Papanicolaou smear with manual screening 14 U/L 15-37 [facility] Work Phone: Thin prep Papanicolaou smear with manual screening 4 5-15 [facility] Work Phone: Thin prep Papanicolaou smear with manual screening 152 U/L 84-246 [facility] Work Phone: Urine blood detectionon 08-0 RBC Ql (U) Negative Negative [facility] Work Phone: Urine clarityon 06-05-2022 Clarity (U) Sl. Cloudy Clear [facility] Work Phone: Urine color determinationon 06-05-2022 Color (U) Yellow Yellow [facility] Work Phone: Urine glucose detectionon Glucose Ql (U) Normal mg/dl Normal [facility] Work Phone: Urine leukocyte esterase det ection by dipstickon 06-05-2022 Leukocyte esterase Test strip Ql (U) 500 /ul Negative [facility] Work Phone: Urine pHon 06-05-2022 pH (U) 5.0 [pH] 5.0 - 8.0 [facility] Work Phone: Urine specific gravity measu rementon 06-05-2022 Specific gravity (U) [Rel density] 1.020 1.002-1.030 [facility] Work Phone: Urobilinogen Auto test strip Ql (U)on 06-05-2022 Urobilinogen Ql (U) Normal mg/dl Normal [facility] Work Phone: CNOVon 05-24-2022 CNOV Office Visit (SPAGWO) ---- TORI GRAY ([id number]) 1980 F Date Time Provider Department 05/24/22 [...] The patient is not nervous/anxious. Adelina Marinelli APRN.TERRITORY SALES PROFESSIONAL 05/24/2022 10:08 PM Signed [facility] Today's Date: 05/24/2022 Last Visit: 03/29/22 [...] with some (more content not included)... Normal [facility] TOR[facility] ([id number]) 1980 F Date Time Provider Department 05/11/22 [...] bed with current PAP mask. - Ipratropium Kiln (ATROVENT) 0.03 % nasal spray Use 2 Sprays in the nose every 12 hours. - metroNIDAZOLE (METROGEL) 0.75 % Topical Gel Apply to affected area twice daily. - Dazey-3 Fatty Acids (FISH OIL) 500 mg cap Take 1 capsule by mouth once daily. - blood sugar diagnostic (BLOOD GLUCOSE TEST) test strip Test blood sugar(s) 1 times daily. Dx: Type 2 DM - Controlled E11.9 Insulin: Yes - Lancets lancets Test blood sugar(s) 1 times daily. Dx: Type 2 DM - Controlled E11.9 Insulin: No - Cwsfiivg-Pz-Hbx-Fe- FA ( FORMULA) ORAL Tab Take 1 [...] Routine general medical examination at [facility]*01/23/2010 12/06/2012 Class: Chronic Routine gynecological examination [Z01.419] 01/23/2010 02/22/2014 Class: Chronic Morbid Obesity [E66.01] 01/23/2010 Lumbar Disc Disorder [M51.9] 02/16/2010 Routine general medical examination at [facility]*12/06/2012 02/22/2014 Anxiety [F41.9] 06/07/2014 Type 2 diabetes mellitus with microalbuminuria,*0 07/04/2018 Fatty liver [K76.0] 07/21/2018 LETITIA (obstructive sleep apnea) [G47.33] 07/21/2018 Microalbuminuria [R80.9] 09/30/2018 Obesity, Class III, BMI >= 40 [E66.01] 11/26/2019 Prolonged Q-T interval on ECG [R94.31] 03/31/2020 Encounter Status:Closed by LIVIA LUNA on 05/11/22 Normal [facility] GLUCOSE, BLOOD (POC)on 05-10 Glucose [Mass/Vol] 104 mg/dL Abnormal 74 - 99 mg/dL [facility] CNCOon 03-29-2022 CNCO Letter Text Normal [facility] CNOVon 03-29-2022 CNOV Office Visit (SPAGWO) ---- TORI GRAY ([id number]) 1980 F Date Time Provider Department 03/29/22 11:00 AM ELLE RASHEED During your visit today, we recorded the following information about you: Pulse Respiration Normal [facility] CNPNon 03-29-2022 CNPN Telephone (SPAGWO) ---- TORI GRAY ([id number]) 1980 F Date Time Provider Department 03/29/22 [...] bed with current PAP mask. - Ipratropium Kiln (ATROVENT) 0.03 % nasal spray Use 2 Sprays in the nose every 12 hours. - metroNIDAZOLE (METROGEL) 0.75 % Topical Gel Apply to affected area twice daily. - Dazey-3 Fatty Acids (FISH OIL) 500 mg cap Take 1 capsule by mouth once daily. - blood sugar diagnostic (BLOOD GLUCOSE TEST) test strip Test blood sugar(s) 1 times daily. Dx: Type 2 DM - Controlled E11.9 Insulin: Yes - Lancets lancets Test blood sugar(s) 1 times daily. Dx: Type 2 DM - Controlled E11.9 Insulin: No - Uzhykoyc-Rq-Xcj-Fe- FA ( FORMULA) ORAL Tab Take 1 [...] Routine general medical examination at [facility]*01/23/2010 12/06/2012 Class: Chronic Routine gynecological examination [Z01.419] 01/23/2010 02/22/2014 Class: Chronic Morbid Obesity [E66.01] 01/23/2010 Lumbar Disc Disorder [M51.9] 02/16/2010 Routine general medical examination at [facility]*12/06/2012 02/22/2014 Anxiety [F41.9] 06/07/2014 Type 2 diabetes mellitus with microalbuminuria,*0 07/04/2018 Fatty liver [K76.0] 07/21/2018 LETITIA (obstructive sleep apnea) [G47.33] 07/21/2018 Microalbuminuria [R80.9] 09/30/2018 Obesity, Class III, BMI >= 40 [E66.01] 11/26/2019 Prolo (more content not included)... Normal [facility] Basophil percentageon 2021 Cholesterol [Mass/Vol] 178 mg/dL <200 [facility] Comment on above: <200 mg/dL Desirable 200-240 mg/dL Borderline >240 mg/dL High Risk Triglyceride [Mass/Vol] 183 mg/dL [facility] Comment on above: The drugs N-Acetylcy steine and Metamizole may falsely depress this assay.Serum Triglycerides Reference Interval Normal <150 mg/dL Borderline high 150 - 199 mg/dL High 200 - 499 mg/dL Very High > or = 500 mg/dL Bilirubin [Mass/Vol] 0.30 mg/dL 0.20-1.00 [facility] Work Phone: Comment on above: For patients on eltr ombopag therapy, use of Dimension [place] TBIL is not recommended. Chloride [Moles/Vol] 109 mmol/L 98-107 [facility] Work Phone: Glucose [Mass/Vol] 126 mg/dL 74-106 [facility] Work Phone: Comment on above: Fasting Glucose resu lt greater than or equal to 126 mg/dL suggests DIABETES MELLITUS per A.D.A. criteria. Potassium [Moles/Vol] 4.1 mmol/L 3.5-5.1 [facility] Work Phone: Protein [Mass/Vol] 8.4 g/dL 6.4-8.2 [facility] Work Phone: Sodium [Moles/Vol] 136 mmol/L 136-145 [facility] Work Phone: WBC (Bld) [#/Vol] 9.6 10*3/uL 4.4-11.0 [facility] Work Phone: Blood erythrocytes count (nu mber/volume)on 02-07-2022 RBC (Bld) [#/Vol] 4.63 10*6/uL 4.2-5.4 [facility] Work Phone: Blood hemoglobin measurement (mass/volume)on 02-07-2022 Hemoglobin (Bld) [Mass/Vol] 14.2 g/dL 12.0-15.0 [facility] Work Phone: Blood platelet mean volumeon 02-07-2022 Platelet mean volume (Bld) [Entitic vol] 9.5 fL 6.2-12.0 [facility] Work Phone: Determination of erythrocyte mean corpuscular volume (MCV)on 02-07-2022 MCV (RBC) [Entitic vol] 91.6 fL 81-99 [facility] Work Phone: Hematocrit Auto (Bld) [Volum e fraction]on 02-07-2022 Hematocrit (Bld) [Volume fraction] 42.4 % 37-47 [facility] Work Phone: LIPID PANEL (OUTSIDE)on VLDL Cholesterol 37 [facility] - Chemistry and C hemistry - challengeon 02-07-2022 ALP [Catalytic activity/Vol] 87 U/L 45-117 [facility] Work Phone: ALT [Catalytic activity/Vol] 29 U/L 13-56 [facility] Work Phone: CO2 [Moles/Vol] 23.0 mmol/L 21.0-32.0 [facility] Work Phone: Globulin (S) [Mass/Vol] 4.3 g/dL 2.2-4.2 [facility] Work Phone: Magnesium [Mass/Vol] 1.7 mg/dL 1.6-2.6 [facility] Work Phone: Urea nitrogen/Creatinine [Mass ratio] 15.1 mg/mg 10-20 [facility] Work Phone: Laboratory - Hematology and Cell countson 02-07-2022 Erythrocyte distribution width (RBC) [Entitic vol] 43.8 fL 35.1-43.9 [facility] Work Phone: Erythrocyte distribution width (RBC) [Ratio] 13.2 % 11.6-14.6 [facility] Work Phone: MCH (RBC) [Entitic mass] 30.7 pg 27.0-32.0 [facility] Work Phone: MCHC Auto (RBC) [Mass/Vol]on 02-07-2022 MCHC (RBC) [Mass/Vol] 33.5 g/dL 32-36 [facility] Work Phone: MICROALBUMIN/CREATININE UR W RATIO (EXTERNAL)on 02-07-2022 Albumin/Creat Ratio 153.4 [facility] Creatinine Urine 189 [facility] Microalbumin, Random urine 290 [facility] No Panel Informationon 02-07 Urine Microalbumin/Creatinine Ratio 153.4 mg/g CRE <30 [facility] Work Phone: Estimated GFR (MDRD) Amer 114 mL/min >60 [facility] Work Phone: Comment on above: GFR Calc Estimated GFR (MDRD) Non-Af Amer 94 mL/min >60 [facility] Work Phone: Comment on above: Non- GFR Calc Thyroid Stimulating Hormone (TSH) 2.76 uIU/mL 0.358-3.74 [facility] Work Phone: Platelets bldon 02-07-2022 Platelets (Bld) [#/Vol] 223 10*3/uL 150-450 [facility] Work Phone: Serum or plasma albumin sharron urement (mass/volume)on 02-07-2022 Albumin [Mass/Vol] 4.1 g/dL 3.2-5.0 [facility] Work Phone: Serum or plasma albumin/glob ulin mass ratioon 02-07-2022 Albumin/Globulin [Mass ratio] 1.0 {ratio} 0.9-2.4 [facility] Work Phone: Serum or plasma calcium sharron urement (mass/volume)on 02-07-2022 Calcium [Mass/Vol] 8.8 mg/dL 8.5-10.1 [facility] Work Phone: Serum or plasma cholesterol in HDL measurement (mass/volume)on 02-07-2022 Cholesterol in HDL [Mass/Vol] 37 mg/dL [facility] Comment on above: The drugs N-Acetylcy steine and Metamizole may falsely depress this assay. Reference Range HDL <40 mg/dL Low HDL Cholesterol HDL >or= 60 mg/dL High HDL Cholesterol Serum or plasma cholesterol in VLDL measurement (mass/volume)on 02-07-2022 Cholesterol in VLDL [Mass/Vol] 37 mg/dL 5-40 [facility] Work Phone: Serum or plasma creatinine m easurement (mass/volume)on 02-07-2022 Creatinine [Mass/Vol] 0.73 mg/dL 0.55-1.02 [facility] Work Phone: Comment on above: The validity of the calculated GFR & GFRAA in patients over 70 years has not been determined. Clinical correlation is essential. Serum or plasma low density lipoprotein (LDL) cholesterol measurement (mass/volume)on 02-07-2022 Cholesterol in LDL [Mass/Vol] 104 mg/dL 0-130 [facility] Serum or plasma urea nitroge n measurement (mass/volume)on 02-07-2022 Urea nitrogen [Mass/Vol] 11 mg/dL 7-18 [facility] Work Phone: TSH (EXTERNAL)on 02-07-2022 TSH 2.76 IU/ml 0.2 - 5.6 IU/ml [facility] Thin prep Papanicolaou smear with manual screeningon 02-07-2022 Thin prep Papanicolaou smear with manual screening 290.0 mg/L NO RANGE EST. [facility] Work Phone: Thin prep Papanicolaou smear with manual screening 13 U/L 15-37 [facility] Work Phone: Thin prep Papanicolaou smear with manual screening 4 5-15 [facility] Work Phone: Urine creatinine measurement (mass/volume)on 02-07-2022 Creatinine (U) [Mass/Vol] 189.00 mg/dL NO RANGE EST. [facility] Work Phone: Whole blood hemoglobin A1c/t otal hemoglobin ratio (mass fraction)on 02-07-2022 HbA1c (Bld) [Mass fraction] 5.1 % 3.8-5.6 [facility] Comment on above: Normal < 5.7 % Predi abetic 5.7 - 6.4 % Diabetic >or= 6.5 % Please note range changes. Hany 01-29-2022 CNPN Telephone (AGSPINE3) ---- TORI GRAY ([id number]) 1980 F Date Time Provider Department 01/29/22 [...] bed with current PAP mask. - Ipratropium Kiln (ATROVENT) 0.03 % nasal spray Use 2 Sprays in the nose every 12 hours. - metroNIDAZOLE (METROGEL) 0.75 % Topical Gel Apply to affected area twice daily. - Dazey-3 Fatty Acids (FISH OIL) 500 mg cap Take 1 capsule by mouth once daily. - blood sugar diagnostic (BLOOD GLUCOSE TEST) test strip Test blood sugar(s) 1 times daily. Dx: Type 2 DM - Controlled E11.9 Insulin: Yes - Lancets lancets Test blood sugar(s) 1 times daily. Dx: Type 2 DM - Controlled E11.9 Insulin: No - Zrdxtacw-Tj-Sgl-Fe- FA ( FORMULA) ORAL Tab Take 1 [...] Routine general medical examination at [facility]*01/23/2010 12/06/2012 Class: Chronic Routine gynecological examination [Z01.419] 01/23/2010 02/22/2014 Class: Chronic Morbid Obesity [E66.01] 01/23/2010 Lumbar Disc Disorder [M51.9] 02/16/2010 Routine general medical examination at [facility]*12/06/2012 02/22/2014 Anxiety [F41.9] 06/07/2014 Type 2 diabetes mellitus with microalbuminuria,*0 07/04/2018 Fatty liver [K76.0] 07/21/2018 LETITIA (obstructive sleep apnea) [G47.33] 07/21/2018 Microalbuminuria [R80.9] 09/30/2018 Obesity, Class III, BMI >= 40 [E66.01] 11/26/2019 Prolonged Q-T interval on ECG [R94.31] 03/31/2020 Encounter Status:Closed by DARRION BARAHONA on 01/30/22 [facility] - Microbiology an d Antimicrobial susceptibilityon 11-21-2021 SARS-CoV-2 (COVID-19) RNA ALLYSON+probe Ql (Unsp spec) Not detected [facility] Work Phone: Office Visit: Jojo Removal, possible other optionson 09-09-2017 Documentation of current medications (procedure) Done Invalid Interpretation Code [facility] Fall risk assessment No Invalid Interpretation Code [facility] Tobacco smoking status NHIS Never Invalid Interpretation Code [facility] Tobacco use CPHS Never smoker Invalid Interpretation Code [facility] Office Visit: Spine Visit- L ow back pain BWCon 09-05-2017 Documentation of current medications (procedure) Done Invalid Interpretation Code [facility] Work Phone: Office Visit: Spine Visit- L ow back painon 09-03-2017 Documentation of current medications (procedure) Done Invalid Interpretation Code [facility] Work Phone: Office Visit: Spine Visit- L ow back [facility] 08-22-2017 Documentation of current medications (procedure) Done Invalid Interpretation Code [facility] Work Phone: Office Visiton 08-09-2017 Dietary management education, guidance, and counseling (procedure) yes Invalid Interpretation Code [facility] Work Phone: Tobacco smoking status NHIS Never Invalid Interpretation Code [facility] Work Phone: Tobacco use CPHS Never smoker Invalid Interpretation Code [facility] Work Phone: Office Visit: BWC: low back painon 05-02-2017 Fall risk assessment No Invalid Interpretation Code [facility] Work Phone: Office Visit: Jojo Robles, possible other optionson 06-04-2014 General categories [Interpretation] of Cervical or vaginal smear or scraping by Cyto stain Normal Invalid Interpretation Code [facility] Vital Signs Date Time Vital Sign Value Performing Clinician Facility 07-15-2025 09:26-0400 Body mass index (BMI) [Ratio] 42.13 kg/m2 Lubna Suppan [employer]ER[employer]IST.[employer]RITORY SALES PROFESSIONAL Work Phone: [facility] 07-15-2025 09:26-0400 Body temperature 97.59 [degF] Lubna Suppan [employer] THERAPIST.TERRITORY SALES PROFESSIONAL Work Phone: [facility] 07-15-2025 09:26-0400 Body weight 122.02 kg Lubna Suppan [employer] THERAPIST.TERRITORY SALES PROFESSIONAL Work Phone: [facility] 07-15-2025 09:26-0400 Diastolic blood pressure 76 mm[Hg] Lubna Suppan [employer] THERAPIST.TERRITORY SALES PROFESSIONAL Work Phone: [facility] 07-15-2025 09:26-0400 Heart rate 73 /min Lubna Suppan [employer] THERAPIST.TERRITORY SALES PROFESSIONAL Work Phone: [facility] 07-15-2025 09:26-0400 SaO2% (BldA) [Mass fraction] 98 % Lubna Suppan [employer] C[employer] THERAPIST.TERRITORY SALES PROFESSIONAL Work Phone: [facility] 07-15-2025 09:26-0400 Systolic blood pressure 128 mm[Hg] Lubna Suppan [employer] THERAPIST.TERRITORY SALES PROFESSIONAL Work Phone: [facility] 07-07-2025 07:15-0400 SaO2% (BldA) [Mass fraction] 96 % Dr. Ivette Grimes MD Work Phone: [facility] 07-07-2025 06:00-0400 Diastolic blood pressure 74 mm[Hg] Dr. Ivette Grimes MD Work Phone: [facility] 07-07-2025 06:00-0400 Heart rate 61 /min Dr. Ivette Grimes MD Work Phone: [facility] 07-07-2025 06:00-0400 Respiratory rate 18 /min Dr. Ivette Grimes MD Work Phone: 2(082)103-075951 [place] [address] 07-07-2025 06:00-0400 Systolic blood pressure 117 mm[Hg] Dr. Ivette Grimes MD Work Phone: 2(017)701-269951 [place] [address] 07-07-2025 05:33-0400 Body mass index (BMI) [Ratio] 44.1 kg/m2 Dr. Ivette Grimes MD Work Phone: 3(145)944-498851 [place] [address] 07-07-2025 05:33-0400 Body weight 127.[address] Ivette Grimes MD Work Phone: 0(829)923-712851 [place] [address] 07-07-2025 04:00-0400 Body temperature 98.1 [degF] Dr. Ivette Grimes MD Work Phone: 3(736)257-617651 [place] [address] 07-06-2025 10:30-0400 Body height 170.[address] Ivette Grimes MD Work Phone: 1(450)049-213851 [place] [address] 07-05-2025 23:35-0400 Body height 170.[address] Ivette Grimes MD Work Phone: 1(328)509-877651 [place] [address] 07-05-2025 23:35-0400 Body mass index (BMI) [Ratio] 44.7 kg/m2 Dr. Ivette Grimes MD Work Phone: 7(919)493-236851 [place] [address] 07-05-2025 23:35-0400 Body weight 129.[address] Ivette Grimes MD Work Phone: 9(869)203-591751 [place] [address] 07-05-2025 23:00-0400 Diastolic blood pressure 50 mm[Hg] Dr. Ivette Grimes MD Work Phone: 4(198)816-139651 [place] [address] 07-05-2025 23:00-0400 Heart rate 75 /min Dr. Ivette Grimes MD Work Phone: 5(364)654-751951 [place] [address] 07-05-2025 23:00-0400 Respiratory rate 27 /min Dr. Ivette Grimes MD Work Phone: 1(617)944-055551 [place] [address] 07-05-2025 23:00-0400 SaO2% (BldA) [Mass fraction] 94 % Dr. Ivette Grimes MD Work Phone: 9(656)925-657451 [place] [address] 07-05-2025 23:00-0400 Systolic blood pressure 102 mm[Hg] Dr. Ivette Grimes MD Work Phone: 5(818)292-507251 [place] [address] 07-05-2025 22:00-0400 Body temperature 100.3 [degF] Dr. Ivette Grimes MD Work Phone: 1(053)270-011851 [place] [address] 06-23-2025 09:45-0400 Body temperature 96.6 [degF] Dr. Ivette Grimes MD Work Phone: 3(309)594-286851 [place] [address] 06-23-2025 09:45-0400 Diastolic blood pressure 60 mm[Hg] Dr. Ivette Grimes MD Work Phone: 5(557)993-251951 [place] [address] 06-23-2025 09:45-0400 Heart rate 65 /min Dr. Ivette Grimes MD Work Phone: 3(368)315-735851 [place] [address] 06-23-2025 09:45-0400 Respiratory rate 16 /min Dr. Ivette Grimes MD Work Phone: 4(455)211-641351 [place] [address] 06-23-2025 09:45-0400 SaO2% (BldA) [Mass fraction] 95 % Dr. Ivette Grimes MD Work Phone: 5(334)957-360551 [place] [address] 06-23-2025 09:45-0400 Systolic blood pressure 112 mm[Hg] Dr. Ivette Grimes MD Work Phone: 8(469)450-561151 [place] [address] 06-23-2025 09:15-0400 Inhaled oxygen flow rate 2 L/min Dr. Ivette Grimes MD Work Phone: 9(986)135-379651 [place] [address] 06-23-2025 06:40-0400 Body height 170.[address] Ivette Grimes MD Work Phone: 3(144)698-117151 [place] [address] 06-23-2025 06:40-0400 Body mass index (BMI) [Ratio] 43.4 kg/m2 Dr. Ivette Grimes MD Work Phone: 8(006)535-979051 [place] [address] 06-23-2025 06:40-0400 Body weight [address] Ivette Grimes MD Work Phone: [facility] 06-07-2025 18:27-0400 Body mass index (BMI) [Ratio] 44.26 kg/m2 Ivette Grimes MD Work Phone: [facility] 06-07-2025 18:27-0400 Body weight 128.19 kg Ivette Grimes MD Work Phone: [facility] 06-07-2025 18:27-0400 Diastolic blood pressure 80 mm[Hg] Ivette Grimes MD Work Phone: [facility] 06-07-2025 18:27-0400 Heart rate 78 /min Ivette Grimes MD Work Phone: [facility] 06-07-2025 18:27-0400 SaO2% (BldA) [Mass fraction] 98 % Ivette Grimes MD Work Phone: [facility] 06-07-2025 18:27-0400 Systolic blood pressure 132 mm[Hg] Ivette Grimes MD Work Phone: [facility] 05-06-2025 10:04-0400 Body height 170.[address] Ivette Grimes MD Work Phone: [facility] 05-06-2025 10:04-0400 Body mass index (BMI) [Ratio] 43 kg/m2 Dr. Ivette Grimes MD Work Phone: [facility] 05-06-2025 10:04-0400 Body weight 124.[address] Ivette Grimes MD Work Phone: [facility] 03-22-2025 09:08-0400 Body height 170.[address] Ivette Grimes MD Work Phone: [facility] 01-22-2025 15:43-0400 Body mass index (BMI) [Ratio] 44.17 kg/m2 Ivette Grimes MD Work Phone: [facility] 01-22-2025 15:43-0400 Body weight 127.91 kg Ivette Grimes MD Work Phone: [facility] 01-22-2025 15:43-0400 Diastolic blood pressure 72 mm[Hg] Ivette Grimes MD Work Phone: [facility] 01-22-2025 15:43-0400 Heart rate 77 /min Ivette Grimes MD Work Phone: [facility] 01-22-2025 15:43-0400 SaO2% (BldA) [Mass fraction] 97 % Ivette Grimes MD Work Phone: [facility] 01-22-2025 15:43-0400 Systolic blood pressure 122 mm[Hg] Ivette Grimes MD Work Phone: [facility] 12-11-2024 11:08-0500 Body mass index (BMI) [Ratio] 43.4 kg/m2 Jenni Albaradohof [employer] THERAPIST.TERRITORY SALES PROFESSIONAL Work Phone: [facility] 12-11-2024 11:08-0500 Body temperature 97.81 [degF] Jenni Albaradohof [employer] C[employer] THERAPIST.TERRITORY SALES PROFESSIONAL Work Phone: [facility] 12-11-2024 11:08-0500 Body weight 125.7 kg Jennifrank Albaradohof F[employer] C[employer] THERAPIST.TERRITORY SALES PROFESSIONAL Work Phone: [facility] 12-11-2024 11:08-0500 Diastolic blood pressure 74 mm[Hg] Jenni Albaradohof F[employer] C[employer] THERAPIST.TERRITORY SALES PROFESSIONAL Work Phone: [facility] 12-11-2024 11:08-0500 Heart rate 72 /min Jenni Albaradohof F[employer] C[employer] THERAPIST.TERRITORY SALES PROFESSIONAL Work Phone: [facility] 12-11-2024 11:08-0500 Respiratory rate 16 /min Jenni Verenahof F[employer] C[employer] THERAPIST.TERRITORY SALES PROFESSIONAL Work Phone: [facility] 12-11-2024 11:08-0500 SaO2% (BldA) [Mass fraction] 99 % Jenni Albaradohof F[employer] CARE THERAPIST.TERRITORY SALES PROFESSIONAL Work Phone: [facility] 12-11-2024 11:08-0500 Systolic blood pressure 138 mm[Hg] Jenni Tannhof F[employer] C[employer] THERAPIST.TERRITORY SALES PROFESSIONAL Work Phone: [facility] 11-11-2024 12:34-0500 Heart rate 74 /min Dr. Ivette Grimes MD Work Phone: 1(309)562-272651 [place] [address] 11-11-2024 12:34-0500 Respiratory rate 20 /min Dr. Ivette Grimes MD Work Phone: 6(254)835-850751 [place] [address] 11-11-2024 12:34-0500 SaO2% (BldA) [Mass fraction] 100 % Dr. Ivette Grimes MD Work Phone: 3(518)334-249051 [place] [address] 11-11-2024 11:00-0500 Diastolic blood pressure 60 mm[Hg] Dr. Ivette Grimes MD Work Phone: 1(854)403-711851 [place] [address] 11-11-2024 11:00-0500 Systolic blood pressure 108 mm[Hg] Dr. Ivette Grimes MD Work Phone: 5(175)213-024951 [place] [address] 11-11-2024 05:55-0500 Body height 170.[address] Ivette Grimes MD Work Phone: 1(764)862-656851 [place] [address] 11-11-2024 05:55-0500 Body mass index (BMI) [Ratio] 45.2 kg/m2 Dr. Ivette Grimes MD Work Phone: 5(517)928-997751 [place] [address] 11-11-2024 05:55-0500 Body temperature 97.5 [degF] Dr. Ivette Grimes MD Work Phone: 8(935)462-670951 [place] [address] 11-11-2024 05:55-0500 Body weight [address] Ivette Grimes MD Work Phone: 8(978)512-859351 [place] [address] 10-16-2024 21:50-0500 Body temperature 98 [degF] Dr. Ivette Grimes MD Work Phone: 5(616)067-383951 [place] [address] 10-16-2024 21:50-0500 Diastolic blood pressure 72 mm[Hg] Dr. Ivette Grimes MD Work Phone: 2(989)214-903851 [place] [address] 10-16-2024 21:50-0500 Heart rate 60 /min Dr. Ivette Grimes MD Work Phone: 2(419)385-604751 [place] [address] 10-16-2024 21:50-0500 Respiratory rate 16 /min Dr. Ivette Grimes MD Work Phone: [facility] 10-16-2024 21:50-0500 SaO2% (BldA) [Mass fraction] 95 % Dr. Ivette Grimes MD Work Phone: [facility] 10-16-2024 21:50-0500 Systolic blood pressure 137 mm[Hg] Dr. Ivette Grimes MD Work Phone: [facility] 10-16-2024 20:23-0500 Body mass index (BMI) [Ratio] 43 kg/m2 Dr. Ivette Grimes MD Work Phone: [facility] 10-16-2024 20:23-0500 Body weight 124.[address] Ivette Grimes MD Work Phone: [facility] 09-03-2024 12:51-0400 Body height 170.2 cm Fatuma Robertser PA-C Work Phone: [facility] 09-03-2024 12:51-0400 Body mass index (BMI) [Ratio] 43.8 kg/m2 Fatuma Queener PA-C Work Phone: [facility] 09-03-2024 12:51-0400 Body weight 126.85 kg Fatuma Queener PA-C Work Phone: [facility] 09-03-2024 12:51-0400 Diastolic blood pressure 71 mm[Hg] Fatuma Robertser PA-C Work Phone: [facility] 09-03-2024 12:51-0400 Heart rate 67 /min Fatuma Queener PA-C Work Phone: [facility] 09-03-2024 12:51-0400 SaO2% (BldA) [Mass fraction] 97 % Fatuma Robertser PA-C Work Phone: [facility] 09-03-2024 12:51-0400 Systolic blood pressure 153 mm[Hg] Fatuma Robertser PA-C Work Phone: [facility] 08-05-2024 08:04-0400 Body mass index (BMI) [Ratio] 42.81 kg/m2 Ivette Grimes MD Work Phone: [facility] 08-05-2024 08:04-0400 Body weight 131.5 kg Ivette Grimes MD Work Phone: [facility] 08-05-2024 08:04-0400 Diastolic blood pressure 62 mm[Hg] Ivette Grimes MD Work Phone: [facility] 08-05-2024 08:04-0400 Heart rate 56 /min Ivette Grimes MD Work Phone: [facility] 08-05-2024 08:04-0400 SaO2% (BldA) [Mass fraction] 96 % Ivette Grimes MD Work Phone: [facility] 08-05-2024 08:04-0400 Systolic blood pressure 114 mm[Hg] Ivette Grimes MD Work Phone: [facility] 07-03-2024 15:29-0400 Body mass index (BMI) [Ratio] 41.94 kg/m2 Ivette Grimes MD Work Phone: [facility] 07-03-2024 15:29-0400 Body weight 128.82 kg Ivette Grimes MD Work Phone: [facility] 07-03-2024 15:29-0400 Diastolic blood pressure 82 mm[Hg] Ivette Grimes MD Work Phone: [facility] 07-03-2024 15:29-0400 Heart rate 78 /min Ivette Grimes MD Work Phone: [facility] 07-03-2024 15:29-0400 SaO2% (BldA) [Mass fraction] 98 % Ivette Grimes MD Work Phone: [facility] 07-03-2024 15:29-0400 Systolic blood pressure 152 mm[Hg] Ivette Grimes MD Work Phone: [facility] 04-02-2024 12:46-0400 Body height 175.3 cm Fatuma Beckford PA-C Work Phone: [facility] 04-02-2024 12:46-0400 Body mass index (BMI) [Ratio] 41.02 kg/m2 Fatuma Beckford PA-C Work Phone: [facility] 04-02-2024 12:46-0400 Body weight 126 kg Fatuma Beckford PA-C Work Phone: [facility] 04-02-2024 12:46-0400 Diastolic blood pressure 77 mm[Hg] Fatuma Beckford PA-C Work Phone: [facility] 04-02-2024 12:46-0400 Heart rate 59 /min Fatuma Beckford PA-C Work Phone: [facility] 04-02-2024 12:46-0400 SaO2% (BldA) [Mass fraction] 99 % Fatuma Beckford PA-C Work Phone: [facility] 04-02-2024 12:46-0400 Systolic blood pressure 135 mm[Hg] Fatuma IRENE-C Work Phone: [facility] 02-04-2024 04:03-0400 Body temperature 98 [degF] Dr. Ivette Grimes Work Phone: [facility] 02-04-2024 04:03-0400 Diastolic blood pressure 56 mm[Hg] Dr. Ivette Grimes Work Phone: [facility] 02-04-2024 04:03-0400 Heart rate 59 /min Dr. Ivette Grimes Work Phone: [facility] 02-04-2024 04:03-0400 Respiratory rate 16 /min Dr. Ivette Grimes Work Phone: [facility] 02-04-2024 04:03-0400 SaO2% (BldA) [Mass fraction] 100 % Dr. Ivette Grimes Work Phone: [facility] 02-04-2024 04:03-0400 Systolic blood pressure 107 mm[Hg] Dr. Ivette Grimes Work Phone: [facility] 02-04-2024 01:12-0400 Body height 170.[address] Ivette Grimes Work Phone: [facility] 02-04-2024 01:12-0400 Body mass index (BMI) [Ratio] 43 kg/m2 Dr. Ivette Grimes Work Phone: [facility] 02-04-2024 01:12-0400 Body weight 124.[address] Ivette Grimes Work Phone: [facility] 12-26-2023 10:10-0500 Body height 170.2 cm Fatuma Robertser PA-C Work Phone: [facility] 12-26-2023 10:10-0500 Body weight 123.35 kg Fatuma Robertser PA-C Work Phone: [facility] 12-26-2023 10:10-0500 Diastolic blood pressure 62 mm[Hg] Fatuma Robertser PA-C Work Phone: [facility] 12-26-2023 10:10-0500 Heart rate 68 /min Fatuma Robertser PA-C Work Phone: [facility] 12-26-2023 10:10-0500 Systolic blood pressure 118 mm[Hg] Fatuma Robertser PA-C Work Phone: [facility] 12-10-2023 05:52-0500 Body height 170.[address] Ivette Grimes Work Phone: [facility] 12-10-2023 05:52-0500 Body mass index (BMI) [Ratio] 42.3 kg/m2 Dr. Ivette Grimes Work Phone: [facility] 12-10-2023 05:52-0500 Body temperature 98 [degF] Dr. Ivette Grimes Work Phone: [facility] 12-10-2023 05:52-0500 Body weight 122.[address] Ivette Grimes Work Phone: [facility] 12-10-2023 05:52-0500 Diastolic blood pressure 61 mm[Hg] Dr. Ivette Grimes Work Phone: [facility] 12-10-2023 05:52-0500 Heart rate 68 /min Dr. Ivette Grimes Work Phone: [facility] 12-10-2023 05:52-0500 Respiratory rate 16 /min Dr. Ivette Grimes Work Phone: [facility] 12-10-2023 05:52-0500 SaO2% (BldA) [Mass fraction] 98 % Dr. Ivette Grimes Work Phone: [facility] 12-10-2023 05:52-0500 Systolic blood pressure 108 mm[Hg] Dr. Ivette Grimes Work Phone: [facility] 12-09-2023 17:15-0500 Body weight 122.92 kg Ivette Grimes MD Work Phone: [facility] 12-09-2023 17:15-0500 Diastolic blood pressure 62 mm[Hg] Ivette Grimes MD Work Phone: [facility] 12-09-2023 17:15-0500 Heart rate 60 /min Ivette Grimes MD Work Phone: [facility] 12-09-2023 17:15-0500 SaO2% (BldA) [Mass fraction] 97 % Ivette Grimes MD Work Phone: [facility] 12-09-2023 17:15-0500 Systolic blood pressure 124 mm[Hg] Ivette Grimes MD Work Phone: [facility] 10-27-2023 15:06-0500 Body height 170.18 cm Self Referred [facility] 10-27-2023 15:06-0500 Body mass index (BMI) [Ratio] 43.9 kg/m2 Self Referred [facility] 10-27-2023 15:06-0500 Body temperature 97 [degF] Self Referred [facility] 10-27-2023 15:06-0500 Body weight 127.45 kg Self Referred [facility] 10-27-2023 15:06-0500 Diastolic blood pressure 90 mm[Hg] Self Referred [facility] 10-27-2023 15:06-0500 Heart rate 80 /min Self Referred [facility] 10-27-2023 15:06-0500 Respiratory rate 16 /min Self Referred [facility] 10-27-2023 15:06-0500 SaO2% (BldA) [Mass fraction] 98 % Self Referred [facility] 10-27-2023 15:06-0500 Systolic blood pressure 173 mm[Hg] Self Referred [facility] 08-07-2023 12:17-0400 Body temperature 97.5 [degF] Self Referred [facility] 08-07-2023 12:17-0400 Diastolic blood pressure 75 mm[Hg] Self Referred [facility] 08-07-2023 12:17-0400 Heart rate 53 /min Self Referred [facility] 08-07-2023 12:17-0400 Respiratory rate 14 /min Self Referred [facility] 08-07-2023 12:17-0400 SaO2% (BldA) [Mass fraction] 99 % Self Referred [facility] 08-07-2023 12:17-0400 Systolic blood pressure 119 mm[Hg] Self Referred [facility] 08-07-2023 11:00-0400 Body mass index (BMI) [Ratio] 47.2 kg/m2 Self Referred [facility] 08-05-2023 17:16-0400 Body height 170.18 cm Self Referred [facility] 08-05-2023 17:16-0400 Body weight 136.8 kg Self Referred [facility] 08-05-2023 13:00-0400 Body temperature 97.4 [degF] Dr. Ivette Grimes Work Phone: [facility] 08-05-2023 13:00-0400 Diastolic blood pressure 76 mm[Hg] Dr. Ivette Grimes Work Phone: [facility] 08-05-2023 13:00-0400 Heart rate 58 /min Dr. Ivette Grimes Work Phone: [facility] 08-05-2023 13:00-0400 Respiratory rate 14 /min Dr. Ivette Grimes Work Phone: [facility] 08-05-2023 13:00-0400 SaO2% (BldA) [Mass fraction] 96 % Dr. Ivette Grimes Work Phone: [facility] 08-05-2023 13:00-0400 Systolic blood pressure 156 mm[Hg] Dr. Ivette Grimes Work Phone: [facility] 08-05-2023 11:33-0400 Body mass index (BMI) [Ratio] 47.2 kg/m2 Dr. Ivette Grimes Work Phone: [facility] 08-05-2023 09:51-0400 Body weight 136.[address] Ivette Grimes Work Phone: [facility] 08-05-2023 09:40-0400 Body height 170.[address] Ivette Grimes Work Phone: [facility] 06-07-2023 15:01-0400 Diastolic blood pressure 76 mm[Hg] Ivette Price Jr., MD Work Phone: [facility] 06-07-2023 15:01-0400 Heart rate 75 /min Ivette Price Jr., MD Work Phone: [facility] 06-07-2023 15:01-0400 Respiratory rate 16 /min Ivette Price Jr., MD Work Phone: [facility] 06-07-2023 15:01-0400 SaO2% (BldA) [Mass fraction] 97 % Ivette Price Jr., MD Work Phone: [facility] 06-07-2023 15:01-0400 Systolic blood pressure 138 mm[Hg] Ivette Price Jr., MD Work Phone: [facility] 06-06-2023 09:39-0400 Body weight 132 kg Ivette Grimes MD Work Phone: [facility] 06-06-2023 09:39-0400 Diastolic blood pressure 81 mm[Hg] Ivette Grimes MD Work Phone: [facility] 06-06-2023 09:39-0400 Heart rate 51 /min Ivette Grimes MD Work Phone: [facility] 06-06-2023 09:39-0400 SaO2% (BldA) [Mass fraction] 98 % Ivette Grimes MD Work Phone: [facility] 06-06-2023 09:39-0400 Systolic blood pressure 129 mm[Hg] Ivette Grimes MD Work Phone: [facility] 05-20-2023 22:47-0400 Diastolic blood pressure 88 mm[Hg] Dr. Ivette Grimes Work Phone: [facility] 05-20-2023 22:47-0400 Heart rate 78 /min Dr. Ivette Grimes Work Phone: [facility] 05-20-2023 22:47-0400 Respiratory rate 18 /min Dr. Ivette Grimes Work Phone: [facility] 05-20-2023 22:47-0400 SaO2% (BldA) [Mass fraction] 100 % Dr. Ivette Grimes Work Phone: [facility] 05-20-2023 22:47-0400 Systolic blood pressure 134 mm[Hg] Dr. Ivette Grimes Work Phone: [facility] 05-20-2023 21:28-0400 Body height 170.[address] Ivette Grimes Work Phone: [facility] 05-20-2023 21:28-0400 Body mass index (BMI) [Ratio] 45.4 kg/m2 Dr. Ivette Grimes Work Phone: [facility] 05-20-2023 21:28-0400 Body temperature 97.5 [degF] Dr. Ivette Grimes Work Phone: [facility] 05-20-2023 21:28-0400 Body weight 131.[address] Ivette Grimes Work Phone: [facility] 05-17-2023 10:04-0400 Body height 170.2 cm Fatuma Queener PA-C Work Phone: [facility] 05-17-2023 10:04-0400 Body weight 132 kg Fatuma Queener PA-C Work Phone: [facility] 05-17-2023 10:04-0400 Diastolic blood pressure 70 mm[Hg] Fatuma Queener PA-C Work Phone: [facility] 05-17-2023 10:04-0400 Heart rate 68 /min Fatuma Queener PA-C Work Phone: [facility] 05-17-2023 10:04-0400 SaO2% (BldA) [Mass fraction] 97 % Fatuma Queener PA-C Work Phone: [facility] 05-17-2023 10:04-0400 Systolic blood pressure 123 mm[Hg] Fatuma Queener PA-C Work Phone: [facility] 03-05-2023 12:35-0400 Body temperature 97.81 [degF] Fatuma Queener PA-C Work Phone: [facility] 03-05-2023 12:35-0400 Body weight 130.09 kg Fatuma Robertser PA-C Work Phone: [facility] 03-05-2023 12:35-0400 Diastolic blood pressure 76 mm[Hg] Fatuma Queener PA-C Work Phone: [facility] 03-05-2023 12:35-0400 Heart rate 61 /min Fatuma Queener PA-C Work Phone: [facility] 03-05-2023 12:35-0400 Respiratory rate 16 /min Fatuma Queener PA-C Work Phone: [facility] 03-05-2023 12:35-0400 SaO2% (BldA) [Mass fraction] 98 % Fatuma Queener PA-C Work Phone: [facility] 03-05-2023 12:35-0400 Systolic blood pressure 145 mm[Hg] Fatuma Queener PA-C Work Phone: [facility] 03-05-2023 08:56-0400 Body height 170.2 cm Galina Camacho MD Work Phone: [facility] 03-05-2023 08:56-0400 Body weight 130.18 kg Galina Camacho MD Work Phone: [facility] 03-05-2023 08:56-0400 Diastolic blood pressure 82 mm[Hg] Galina Camacho MD Work Phone: [facility] 03-05-2023 08:56-0400 Systolic blood pressure 122 mm[Hg] Galina Camacho MD Work Phone: [facility] 02-28-2023 14:20-0400 Body weight 131.54 kg Ivette Grimes MD Work Phone: [facility] 02-28-2023 14:20-0400 Diastolic blood pressure 72 mm[Hg] Ivette Grimes MD Work Phone: [facility] 02-28-2023 14:20-0400 Heart rate 79 /min Ivette Grimes MD Work Phone: [facility] 02-28-2023 14:20-0400 SaO2% (BldA) [Mass fraction] 97 % Ivette Grimes MD Work Phone: [facility] 02-28-2023 14:20-0400 Systolic blood pressure 138 mm[Hg] Ivette Grimes MD Work Phone: [facility] 01-31-2023 09:21-0400 Body weight 130.18 kg Ivette Grimes MD Work Phone: [facility] 01-31-2023 09:21-0400 Diastolic blood pressure 82 mm[Hg] Ivette Grimes MD Work Phone: [facility] 01-31-2023 09:21-0400 Heart rate 65 /min Ivette Grimes MD Work Phone: [facility] 01-31-2023 09:21-0400 SaO2% (BldA) [Mass fraction] 98 % Ivette Grimes MD Work Phone: [facility] 01-31-2023 09:21-0400 Systolic blood pressure 120 mm[Hg] Ivette Grimes MD Work Phone: [facility] 01-24-2023 10:23-0400 Heart rate 64 /min Elle Rasheed MD Work Phone: [facility] 01-24-2023 10:23-0400 Respiratory rate 16 /min Elle Rasheed MD Work Phone: [facility] 01-24-2023 10:23-0400 SaO2% (BldA) [Mass fraction] 98 % Elle Rasheed MD Work Phone: [facility] 01-17-2023 11:21-0400 Body height 170.2 cm Ivette Grimes MD Work Phone: [facility] 01-17-2023 11:21-0400 Body weight 128.82 kg Ivette Grimes MD Work Phone: [facility] 01-17-2023 11:21-0400 Diastolic blood pressure 84 mm[Hg] Ivette Grimes MD Work Phone: [facility] 01-17-2023 11:21-0400 Heart rate 70 /min Ivette Grimes MD Work Phone: [facility] 01-17-2023 11:21-0400 SaO2% (BldA) [Mass fraction] 98 % Ivette Grimes MD Work Phone: [facility] 01-17-2023 11:21-0400 Systolic blood pressure 148 mm[Hg] Ivette Grimes MD Work Phone: [facility] 01-04-2023 11:30-0500 Body weight 128.37 kg Ivette Grimes MD Work Phone: [facility] 01-04-2023 11:30-0500 Diastolic blood pressure 78 mm[Hg] Ivette Grimes MD Work Phone: [facility] 01-04-2023 11:30-0500 Heart rate 85 /min Ivette Grimes MD Work Phone: [facility] 01-04-2023 11:30-0500 SaO2% (BldA) [Mass fraction] 97 % Ivette Grimes MD Work Phone: [facility] 01-04-2023 11:30-0500 Systolic blood pressure 132 mm[Hg] Ivette Grimes MD Work Phone: [facility] 12-28-2022 14:55-0500 Body height 170.[address] Ivette Grimes Work Phone: [facility] 12-28-2022 14:55-0500 Body mass index (BMI) [Ratio] 44.6 kg/m2 Dr. Ivette Grimes Work Phone: [facility] 12-28-2022 14:55-0500 Body weight 129.[address] Ivette Grimes Work Phone: [facility] 12-28-2022 14:55-0500 Diastolic blood pressure 79 mm[Hg] Dr. Ivette Grimes Work Phone: [facility] 12-28-2022 14:55-0500 Heart rate 71 /min Dr. Ivette Grimes Work Phone: [facility] 12-28-2022 14:55-0500 Respiratory rate 20 /min Dr. Ivette Grimes Work Phone: [facility] 12-28-2022 14:55-0500 Systolic blood pressure 130 mm[Hg] Dr. Ivette Grimes Work Phone: [facility] 12-26-2022 11:10-0500 Body height 170.2 cm Ivette Grimes MD Work Phone: [facility] 12-26-2022 11:10-0500 Body weight 128.37 kg Ivette Grimes MD Work Phone: [facility] 12-26-2022 11:10-0500 Diastolic blood pressure 74 mm[Hg] Ivette Grimes MD Work Phone: [facility] 12-26-2022 11:10-0500 Heart rate 83 /min Ivette Grimes MD Work Phone: [facility] 12-26-2022 11:10-0500 SaO2% (BldA) [Mass fraction] 97 % Ivette Grimes MD Work Phone: [facility] 12-26-2022 11:10-0500 Systolic blood pressure 140 mm[Hg] Ivette Grimes MD Work Phone: [facility] 12-14-2022 09:16-0500 Body height 170.2 cm Ivette Grimes MD Work Phone: [facility] 12-14-2022 09:16-0500 Body weight 125.65 kg Ivette Grimes MD Work Phone: [facility] 12-14-2022 09:16-0500 Diastolic blood pressure 98 mm[Hg] Ivette Grimes MD Work Phone: [facility] 12-14-2022 09:16-0500 Heart rate 75 /min Ivette Grimes MD Work Phone: [facility] 12-14-2022 09:16-0500 SaO2% (BldA) [Mass fraction] 98 % Ivette Grimes MD Work Phone: [facility] 12-14-2022 09:16-0500 Systolic blood pressure 160 mm[Hg] Ivette Grimes MD Work Phone: [facility] 12-07-2022 16:34-0500 Body temperature 98.8 [degF] Ivette Price Jr., MD Work Phone: [facility] 12-07-2022 16:34-0500 Body weight 126.01 kg Ivette Price Jr., MD Work Phone: [facility] 12-07-2022 16:34-0500 Diastolic blood pressure 94 mm[Hg] Ivette Price Jr., MD Work Phone: [facility] 12-07-2022 16:34-0500 Heart rate 72 /min Ivette Price Jr., MD Work Phone: [facility] 12-07-2022 16:34-0500 Respiratory rate 20 /min Ivette Price Jr., MD Work Phone: [facility] 12-07-2022 16:34-0500 SaO2% (BldA) [Mass fraction] 97 % Ivette Price Jr., MD Work Phone: [facility] 12-07-2022 16:34-0500 Systolic blood pressure 160 mm[Hg] Ivette Price Jr., MD Work Phone: [facility] 12-06-2022 08:07-0500 Body mass index (BMI) [Ratio] 43.4 kg/m2 Dr. Ivette Grimes Work Phone: [facility] 12-06-2022 08:07-0500 Body temperature 97.7 [degF] Dr. Ivette Grimes Work Phone: 0(405)717-437951 [place] [address] 12-06-2022 08:07-0500 Body weight 125.[address] Ivette Grimes Work Phone: 6(431)303-453725 [place] [address] 12-06-2022 08:07-0500 Diastolic blood pressure 79 mm[Hg] Dr. Ivette Grimes Work Phone: 4(667)931-814571 [address] 12-06-2022 08:07-0500 Heart rate 70 /min Dr. Ivette Grimes Work Phone: 0(896)864-457951 [place] [address] 12-06-2022 08:07-0500 Respiratory rate 18 /min Dr. Ivette Grimes Work Phone: [facility] 12-06-2022 08:07-0500 SaO2% (BldA) [Mass fraction] 98 % Dr. Ivette Grimes Work Phone: [facility] 12-06-2022 08:07-0500 Systolic blood pressure 141 mm[Hg] Dr. Ivette Grimes Work Phone: 6(230)054-432851 [place] [address] 12-03-2022 20:26-0500 Heart rate 75 /min Dr. Ivette Grimes Work Phone: 4(544)381-712525 [place] [address] 12-03-2022 20:26-0500 Respiratory rate 18 /min Dr. Ivette Grimes Work Phone: 5(693)012-575525 [place] [address] 12-03-2022 20:26-0500 SaO2% (BldA) [Mass fraction] 96 % Dr. Ivette Grimes Work Phone: 1(491)116-860451 [place] [address] 12-03-2022 18:25-0500 Body mass index (BMI) [Ratio] 43.4 kg/m2 Dr. Ivette Grimes Work Phone: 3(713)291-363251 [place] [address] 12-03-2022 18:25-0500 Body temperature 97.8 [degF] Dr. Ivette Grimes Work Phone: 7(483)198-441951 [place] [address] 12-03-2022 18:25-0500 Body weight 125.[address] Ivette Grimes Work Phone: 6(773)592-778051 [place] [address] 12-03-2022 18:25-0500 Diastolic blood pressure 91 mm[Hg] Dr. Ivette Grimes Work Phone: 9(507)126-168251 [place] [address] 12-03-2022 18:25-0500 Systolic blood pressure 176 mm[Hg] Dr. Ivette Grimes Work Phone: 1(233)359-415851 [place] [address] 11-27-2022 14:36-0500 Body height 170.[address] Ivette Grimes Work Phone: 1(929)377-262751 [place] [address] 11-27-2022 14:36-0500 Body mass index (BMI) [Ratio] 42.7 kg/m2 Dr. Ivette Grimes Work Phone: 7(690)859-994551 [place] [address] 11-27-2022 14:36-0500 Body temperature 98.1 [degF] Dr. Ivette Grimes Work Phone: 9(306)277-510851 [place] [address] 11-27-2022 14:36-0500 Body weight 123.[address] Ivette Grimes Work Phone: 4(099)090-429051 [place] [address] 11-27-2022 14:36-0500 Diastolic blood pressure 81 mm[Hg] Dr. Ivette Grimes Work Phone: 8(053)164-688551 [place] [address] 11-27-2022 14:36-0500 Heart rate 70 /min Dr. Ivette Grimes Work Phone: 5(307)619-186651 [place] [address] 11-27-2022 14:36-0500 Respiratory rate 15 /min Dr. Ivette Grimes Work Phone: [facility] 11-27-2022 14:36-0500 SaO2% (BldA) [Mass fraction] 99 % Dr. Ivette Grimes Work Phone: [facility] 11-27-2022 14:36-0500 Systolic blood pressure 154 mm[Hg] Dr. Ivette Grimes Work Phone: [facility] 11-27-2022 13:51-0500 Body height 170.2 cm Ivette Grimes MD Work Phone: [facility] 11-27-2022 13:51-0500 Body weight 123.83 kg Ivette Grimes MD Work Phone: [facility] 11-27-2022 13:51-0500 Diastolic blood pressure 84 mm[Hg] Ivette Grimes MD Work Phone: [facility] 11-27-2022 13:51-0500 Heart rate 75 /min Ivette Grimes MD Work Phone: [facility] 11-27-2022 13:51-0500 SaO2% (BldA) [Mass fraction] 97 % Ivette Grimes MD Work Phone: [facility] 11-27-2022 13:51-0500 Systolic blood pressure 150 mm[Hg] Ivette Grimes MD Work Phone: [facility] 11-24-2022 15:07-0500 Heart rate 67 /min Dr. Ivette Grimes Work Phone: [facility] 11-24-2022 15:07-0500 SaO2% (BldA) [Mass fraction] 97 % Dr. Ivette Grimes Work Phone: [facility] 11-24-2022 13:43-0500 Diastolic blood pressure 64 mm[Hg] Dr. Ivette Grimes Work Phone: [facility] 11-24-2022 13:43-0500 Respiratory rate 16 /min Dr. Ivette Grimes Work Phone: [facility] 11-24-2022 13:43-0500 Systolic blood pressure 132 mm[Hg] Dr. Ivette Grimes Work Phone: [facility] 11-24-2022 11:44-0500 Body height 170.[address] Ivette Grimes Work Phone: [facility] 11-24-2022 11:44-0500 Body mass index (BMI) [Ratio] 47.2 kg/m2 Dr. Ivette Grimes Work Phone: [facility] 11-24-2022 11:44-0500 Body temperature 97.9 [degF] Dr. Ivette Grimes Work Phone: [facility] 11-24-2022 11:44-0500 Body weight [address] Ivette Grimes Work Phone: [facility] 11-08-2022 13:35-0500 Heart rate 70 /min Adelina Marinelli [employer] SALES PROFESSIONAL Work Phone: [facility] 11-08-2022 13:35-0500 Respiratory rate 14 /min Adelina Marinelli [employer] THER[employer]IST.TERRITORY SALES PROFESSIONAL Work Phone: [facility] 11-08-2022 13:35-0500 SaO2% (BldA) [Mass fraction] 98 % Adelina Marinelli [employer] THER[employer]IST.TERRITORY SALES PROFESSIONAL Work Phone: [facility] 09-04-2022 11:50-0400 Body height 170.2 cm Ivette Grimes MD Work Phone: [facility] 09-04-2022 11:50-0400 Body weight 123.11 kg Ivette Grimes MD Work Phone: [facility] 09-04-2022 11:50-0400 Diastolic blood pressure 80 mm[Hg] Ivette Grimes MD Work Phone: [facility] 09-04-2022 11:50-0400 Heart rate 74 /min Ivette Grimes MD Work Phone: [facility] 09-04-2022 11:50-0400 SaO2% (BldA) [Mass fraction] 98 % Ivette Grimes MD Work Phone: [facility] 09-04-2022 11:50-0400 Systolic blood pressure 160 mm[Hg] Ivette Grimes MD Work Phone: [facility] 08-16-2022 12:57-0400 Body height 170.[address] Ivette Grimes Work Phone: [facility] Work Phone: 08-16-2022 12:57-0400 Body mass index (BMI) [Ratio] 42.3 kg/m2 Dr. Ivette Grimes Work Phone: [facility] 08-16-2022 12:57-0400 Body weight 122.[address] Ivette Grimes Work Phone: 4(179)039-069671 [address] 08-16-2022 12:57-0400 Diastolic blood pressure 78 mm[Hg] Dr. Ivette Grimes Work Phone: 5(654)299-366751 [place] [address] 08-16-2022 12:57-0400 Heart rate 73 /min Dr. Ivette Grimes Work Phone: 0(127)872-043671 [address] 08-16-2022 12:57-0400 Respiratory rate 16 /min Dr. Ivette Grimes Work Phone: 0(229)268-318171 [address] 08-16-2022 12:57-0400 Systolic blood pressure 117 mm[Hg] Dr. Ivette Grimes Work Phone: 5(099)460-420525 [place] [address] 08-07-2022 07:38-0400 Body height 170.[address] Ivette Grimes Work Phone: [facility] Work Phone: 08-07-2022 07:38-0400 Body mass index (BMI) [Ratio] 42.5 kg/m2 Dr. Ivette Grimes Work Phone: 9(722)928-912725 [place] [address] 08-07-2022 07:38-0400 Body temperature 99.1 [degF] Dr. Ivette Grimes Work Phone: 9(446)683-781871 [address] 08-07-2022 07:38-0400 Body weight 123.[address] Ivette Grimes Work Phone: [facility] 08-07-2022 07:38-0400 Diastolic blood pressure 81 mm[Hg] Dr. Ivette Grimes Work Phone: [facility] 08-07-2022 07:38-0400 Heart rate 65 /min Dr. Ivette Grimes Work Phone: [facility] 08-07-2022 07:38-0400 Respiratory rate 16 /min Dr. Ivette Grimes Work Phone: [facility] 08-07-2022 07:38-0400 SaO2% (BldA) [Mass fraction] 97 % Dr. Ivette Grimes Work Phone: [facility] 08-07-2022 07:38-0400 Systolic blood pressure 130 mm[Hg] Dr. Ivette Grimes Work Phone: [facility] 08-02-2022 09:50-0400 Body weight 122.02 kg Ivette Grimes MD Work Phone: [facility] 08-02-2022 09:50-0400 Diastolic blood pressure 82 mm[Hg] Ivette Grimes MD Work Phone: [facility] 08-02-2022 09:50-0400 Heart rate 60 /min Ivette Grimes MD Work Phone: [facility] 08-02-2022 09:50-0400 Systolic blood pressure 126 mm[Hg] Ivette Grimes MD Work Phone: [facility] 07-19-2022 12:57-0400 Body height 170.2 cm Karen Bansal [employer]ER[employer] SAL[employer] PROFESSIONAL Work Phone: [facility] 07-19-2022 12:57-0400 Body weight 122.92 kg Karen Bansal [employer] THER[employer]IST.[employer] SALES PROFESSIONAL Work Phone: [facility] 07-19-2022 12:57-0400 Diastolic blood pressure 57 mm[Hg] Karen Bansal [employer] THERAPIST.TERRITORY SALES PROFESSIONAL Work Phone: [facility] 07-19-2022 12:57-0400 Heart rate 76 /min Karen Dowellerickson [employer] THER[employer]IST.TERR[employer] SALES PROFESSIONAL Work Phone: [facility] 07-19-2022 12:57-0400 Systolic blood pressure 115 mm[Hg] Karen Bansal [employer] THER[employer]IST.TERR[employer] SALES PROFESSIONAL Work Phone: [facility] 06-07-2022 15:13-0400 Body temperature 97.81 [degF] Tara Dahlhausen [employer] THER[employer]IST.TERR[employer] SALES PROFESSIONAL Work Phone: [facility] 06-07-2022 15:13-0400 Body weight 119.84 kg Tara Dahlhausen [employer] THER[employer]IST.TERR[employer] SALES PROFESSIONAL Work Phone: [facility] 06-07-2022 15:13-0400 Diastolic blood pressure 68 mm[Hg] Tara Dahlhausen [employer] THERAPIST.TERRITORY SALES PROFESSIONAL Work Phone: [facility] 06-07-2022 15:13-0400 Heart rate 80 /min Tara Dahlhausen [employer] THERAPIST.TERRITORY SALES PROFESSIONAL Work Phone: [facility] 06-07-2022 15:13-0400 Respiratory rate 22 /min Tara Dahlhausen [employer] THER[employer]IST.TERRITORY SALES PROFESSIONAL Work Phone: [facility] 06-07-2022 15:13-0400 SaO2% (BldA) [Mass fraction] 98 % Tara Dahlhausen [employer] THERAPIST.TERRITORY SALES PROFESSIONAL Work Phone: [facility] 06-07-2022 15:13-0400 Systolic blood pressure 112 mm[Hg] Tara Dahlhausen [employer] THERAPIST.TERRITORY SALES PROFESSIONAL Work Phone: [facility] 06-04-2022 14:39-0400 Body height 170.[address] Ivette Grimes Work Phone: [facility] Work Phone: 05-24-2022 11:01-0400 Heart rate 78 /min Adelina Marinelli [employer] THER[employer]IST.TERR[employer] SALES PROFESSIONAL Work Phone: [facility] 05-24-2022 11:01-0400 Respiratory rate 18 /min Adelina Marinelli [employer] THERAPIST.TERRITORY SALES PROFESSIONAL Work Phone: [facility] 05-24-2022 11:01-0400 SaO2% (BldA) [Mass fraction] 98 % Adelina Marinelli [employer] THERAPIST.TERRITORY SALES PROFESSIONAL Work Phone: [facility] 05-10-2022 10:54-0400 Diastolic blood pressure 75 mm[Hg] Elle Rasheed MD Work Phone: [facility] 05-10-2022 10:54-0400 Heart rate 61 /min Elle Rasheed MD Work Phone: [facility] 05-10-2022 10:54-0400 Respiratory rate 20 /min Elle Rasheed MD Work Phone: [facility] 05-10-2022 10:54-0400 SaO2% (BldA) [Mass fraction] 98 % Elle Rasheed MD Work Phone: [facility] 05-10-2022 10:54-0400 Systolic blood pressure 130 mm[Hg] Elle Rasheed MD Work Phone: [facility] 05-01-2022 14:39-0400 Body weight 118.39 kg Ivette Grimes MD Work Phone: [facility] 05-01-2022 14:39-0400 Diastolic blood pressure 80 mm[Hg] Ivette Grimes MD Work Phone: [facility] 05-01-2022 14:39-0400 Heart rate 68 /min Ivette Grimes MD Work Phone: [facility] 05-01-2022 14:39-0400 Respiratory rate 18 /min Ivette Grimes MD Work Phone: [facility] 05-01-2022 14:39-0400 SaO2% (BldA) [Mass fraction] 98 % Ivette Grimes MD Work Phone: [facility] 05-01-2022 14:39-0400 Systolic blood pressure 132 mm[Hg] Ivette Grimes MD Work Phone: [facility] 04-09-2022 15:29-0400 Body temperature 97.5 [degF] Ivette Price Jr., MD Work Phone: [facility] 04-09-2022 15:29-0400 Body weight 122.2 kg Ivette Price Jr., MD Work Phone: [facility] 04-09-2022 15:29-0400 Diastolic blood pressure 72 mm[Hg] Ivette Price Jr., MD Work Phone: [facility] 04-09-2022 15:29-0400 Heart rate 74 /min Ivette Price Jr., MD Work Phone: [facility] 04-09-2022 15:29-0400 Respiratory rate 18 /min Ivette Price Jr., MD Work Phone: [facility] 04-09-2022 15:29-0400 SaO2% (BldA) [Mass fraction] 97 % Ivette Price Jr., MD Work Phone: [facility] 04-09-2022 15:29-0400 Systolic blood pressure 138 mm[Hg] Ivette Price Jr., MD Work Phone: [facility] 03-29-2022 10:58-0400 Heart rate 62 /min Elle Rasheed MD Work Phone: [facility] 03-29-2022 10:58-0400 Respiratory rate 15 /min Elle Rasheed MD Work Phone: [facility] 03-29-2022 10:58-0400 SaO2% (BldA) [Mass fraction] 98 % Elle Rasheed MD Work Phone: [facility] 02-28-2022 16:31-0400 Body weight 120.66 kg Ivette Grimes MD Work Phone: [facility] 02-28-2022 16:31-0400 Diastolic blood pressure 82 mm[Hg] Ivette Grimes MD Work Phone: [facility] 02-28-2022 16:31-0400 Heart rate 72 /min Ivette Grimes MD Work Phone: [facility] 02-28-2022 16:31-0400 Systolic blood pressure 142 mm[Hg] Ivette Grimes MD Work Phone: [facility] 11-21-2021 13:58-0500 Body height 170.[address] Ivette Grimes Work Phone: [facility] Work Phone: 09-09-2017 14:42-0500 BMI (Body Mass Index) 41.78 kg/m2 Amparo Hitchcock MD [facility] 09-09-2017 14:42-0500 Body Temperature 98.5 [degF] Amparo Hitchcock MD [facility] 09-09-2017 14:42-0500 Body Temperature 98.49 [degF] Amparo Hitchcock MD [facility] 09-09-2017 14:42-0500 BP Diastolic 78 mm[Hg] Amparo Hitchcock MD [facility] 09-09-2017 14:42-0500 BP Systolic 137 mm[Hg] Amparo Hitchcock MD [facility] 09-09-2017 14:42-0500 Height 172.72 cm Amparo Hitchcock MD [facility] 09-09-2017 14:42-0500 Pulse (Heart Rate) 67 /min Amparo Hitchcock MD [facility] 09-09-2017 14:42-0500 Respiratory Rate 16 /min Amparo Hitchcock MD [facility] 09-09-2017 14:42-0500 Weight 124.65 kg Amparo Hitchcock MD [facility] 07-22-2017 16:06-0400 BMI (Body Mass Index) 39.53 kg/m2 [facility] Work Phone: 07-22-2017 16:06-0400 Pulse (Heart Rate) 95 /min [facility] Work Phone: 07-22-2017 16:06-0400 Respiratory Rate 22 /min [facility] Work Phone: 07-22-2017 16:06-0400 Weight 117.94 kg Roya GALVEZ Medical [facility] Work Phone: 05-10-2017 14:47-0400 Body Temperature 97.7 [degF] Roya GALVEZ Medical [facility] Work Phone: 05-10-2017 14:47-0400 BP Diastolic 84 mm[Hg] Roya GALVEZ Medical [facility] Work Phone: 05-10-2017 14:47-0400 BP Systolic 132 mm[Hg] Roya GALVEZ Medical [facility] Work Phone: 05-10-2017 14:47-0400 Height 172.72 cm Roya GALVEZ Medical [facility] Work Phone: Encounters Encounter Date Encounter Type Care Provider Facility Start: 09-16-2025 Encounter for other preprocedural examination Saundra [facility] Start: 09-16-2025 ambulatory [facility] Start: 09-16-2025 End: 09-16-2025 ambulatory [facility] Facility:[facility] Start: 09-09-2025 End: 09-09-2025 ambulatory [facility] Start: 09-02-2025 End: 09-02-2025 ambulatory [facility] Start: 08-30-2025 End: 08-30-2025 ambulatory [facility] Start: 08-27-2025 End: 08-27-2025 ambulatory [facility] Start: 08-11-2025 End: 08-11-2025 ambulatory [facility] Facility:[facility] Start: 08-05-2025 End: 08-05-2025 Dr. Brett Quiroga MD -[facility] Work Phone: Start: 08-05-2025 End: 08-05-[address] Ivette Grimes MD Work Phone: -[facility] Start: 08-04-2025 End: 08-04-2025 ambulatory AMANDA URIBESHI Facility:[facility] Start: 07-29-2025 End: 07-29-2025 ambulatory IVETTE GRIMES Facility:[facility] Start: 07-23-2025 End: 07-23-[address] Ivette Grimes MD Work Phone: -Laboratory Start: 07-23-2025 End: 07-23-2025 Dr. Ivette Grimes MD -Laboratory Work Phone: Start: 07-23-2025 End: 07-23-2025 ambulatory Ivette Patinoo Facility:[facility] Start: 07-15-2025 End: 07-15-2025 Telephone encounter Lubna De La Garza FOSTER CARE THERAPIST.TERRITORY SALES PROFESSIONAL Work Phone: [facility] Start: 07-15-2025 End: 07-15-2025 Office outpatient visit 25 minutes Lubna De La Garza FOSTER CARE THERAPIST.TERRITORY SALES PROFESSIONAL Work Phone: [facility] Comment on above: Sepsis due to Escher [...] End: 07-15-2025 ambulatory LUBNA DE LA GARZA Facility:[facility] Start: 07-09-2025 End: 07-09-[address] Brett Quiroga MD -[facility] Work Phone: Start: 07-09-2025 End: 07-09-2025 Dr. Brett Quiroga MD -[facility] Work Phone: Start: 07-09-2025 End: 07-09-[address] Ivette Grimes MD Work Phone: -[facility] Comment on above: Transition Of Care ( [facility] Discharge 07/07/25) Start: 07-07-2025 Non-patient / Non-visit Dr. Brittany emmanuel MD -[place] [facility] [facility] Work Phone: Start: 07-07-2025 Dr. Brittany Harrison [facility] Work Phone: Start: 07-06-2025 Non-patient / Non-visit Dr. Rachelle Reinoso MD -[facility] Work Phone: Start: 07-06-2025 Dr. Jose Juan Reinoso MD -[facility] [facility] Work Phone: Start: 07-05-2025 End: 07-07-2025 Evaluation and management of inpatient Dr. Shana Mendoza MD -Intensive Care Unit Work Phone: Start: 07-05-2025 ambulatory Shana Mendoza [facility] Start: 07-05-2025 Non-patient / Non-visit Dr. Shana Mendoza MD -[facility] Work Phone: Start: 07-05-2025 End: 07-07-2025 Dr. Brittany Harrison MD -Intensive Care Unit Work Phone: Start: 07-04-2025 End: 07-06-2025 Refill Ivette Grimes MD Work Phone: [facility] Comment on above: Refill Request Start: 06-25-2025 End: 06-25-[address] Brett Quiroga MD -[facility] Work Phone: Start: 06-25-2025 End: 06-25-2025 Dr. Brett Quiroga MD -[facility] Work Phone: Start: 06-25-2025 End: 06-25-[address] Ivette Grimes MD Work Phone: -[facility] Start: 06-23-2025 Non-patient / Non-visit Dr. Brett hernandez MD -[facility] Start: 06-23-2025 End: 06-23-2025 Admission to same day surgery center Dr. Brett Quiroga MD -[facility] Start: 06-23-2025 End: 06-23-2025 Dr. Brett Quiroga MD [facility] Start: 06-23-2025 End: 06-23-[address] Ivette Grimes MD Work Phone: -[facility] Start: 06-17-2025 End: 06-17-[address] Bibiana Rehman DC -[facility] Work Phone: Start: 06-17-2025 End: 06-17-2025 Dr. Bibiana Rehman DC -[facility] Work Phone: Start: 06-17-2025 End: 06-17-[address] Ivette Grimes MD Work Phone: -[facility] Start: 06-16-2025 End: 06-16-2025 Refill Ivette Grimes MD Work Phone: [facility] Comment on above: Refill Request Start: 06-10-2025 ambulatory Brett Quiroga [facility] Start: 06-10-2025 Non-patient / Non-visit Dr. Carson SHEARER -[facility] Work Phone: Start: 06-10-2025 Dr. Vin Montes MD -[facility] Work Phone: Start: 06-09-2025 End: 06-18-2025 Telephone encounter Ivette Grimes MD Work Phone: [facility] Comment on above: Results Start: 06-09-2025 End: 06-09-[address] Ivette Grimes MD Work Phone: -Laboratory Start: 06-09-2025 End: 06-09-[address] Ivette Grimes MD -Laboratory Work Phone: Start: 06-09-2025 End: 06-09-2025 Dr. Ivette Grimes MD -Laboratory Work Phone: Start: 06-09-2025 End: 06-09-2025 ambulatory Ivette Grimes Facility:[facility] Start: 06-07-2025 End: 06-07-2025 Patient encounter procedure Ivette Grimes MD Work Phone: [facility] [place] Comment on above: Well adult exam (Carolyn [...] encounter status Ivette Grimes MD Work Phone: [facility] Start: 06-07-2025 End: 06-07-2025 ambulatory IVETTE GRIMES Facility:[facility] Start: 06-07-2025 Encounter for genera l adult medical examination without abnormal findings IVETTE GRIMES [facility] Start: 06-05-2025 Registered Referred HEALTH RISK ASSE SSMENT -Laboratory Work Phone: Start: 06-05-2025 HEALTH RISK ASSESSMENT -Laboratory Work Phone: Start: 06-05-2025 ambulatory Health Risk Assessment Facility:[facility] Start: 06-01-2025 End: 06-01-[address] Bibiana Rehman DC -[facility] Work Phone: Start: 06-01-2025 End: 06-01-2025 Dr. Bibiana Rehman DC -[facility] Work Phone: Start: 06-01-2025 End: 06-01-[address] Ivette Grimes MD Work Phone: -[facility] Start: 05-11-2025 ambulatory Ivette Grimes Facility:[facility] Start: 05-11-[address] Ivette barry MD -Physical Therapy Work Phone: Start: 05-11-2025 Dr. Ivette Grimes MD -Ph ysical Therapy Work Phone: Start: 05-06-2025 End: 05-06-[address] Brett Quiroga MD -[facility] Work Phone: Start: 05-06-2025 End: 05-06-2025 Dr. Brett Quiroga MD -[facility] Work Phone: Start: 05-06-2025 End: 05-06-[address] Ivette Grimes MD Work Phone: -[facility] Start: 05-05-[address] Ivette barry MD -Physical Therapy Work Phone: Start: 04-21-2025 End: 04-21-[address] Bibiana Rehman DC -[facility] Work Phone: Start: 04-21-2025 End: 04-21-2025 Dr. Bibiana Rehman DC -[facility] Work Phone: Start: 04-21-2025 End: 04-21-[address] Ivette Grimes MD Work Phone: [facility] Work Phone: Start: 04-20-[address] Ivette barry MD -Physical Therapy Work Phone: Start: 04-17-2025 End: 04-17-[address] Ivette Grimes MD Work Phone: [facility] Work Phone: Start: 04-17-2025 End: 04-17-[address] Brett Quiroga MD -[facility] Work Phone: Start: 04-17-2025 End: 04-17-2025 Dr. Brett Quiroga MD -[facility] Work Phone: Start: 04-17-2025 End: 04-17-2025 ambulatory Ivette Grimes Facility:[facility] Start: 04-12-2025 End: 04-12-2025 ambulatory Ivette Grimes MD Work Phone: [facility] Comment on above: Muscle relaxer Start: 04-07-2025 End: 04-07-2025 Telephone encounter Ivette Grimes MD Work Phone: [facility] Comment on above: Rx Refills Start: 04-05-2025 End: 04-05-[address] Bibiana Rehman DC -[facility] Work Phone: Start: 04-05-2025 End: 04-05-[address] Ivette Grimes MD Work Phone: [facility] Work Phone: Start: 04-01-2025 End: 04-01-2025 Telephone encounter Amanda Arteaga PA-C Work Phone: Neurology Comment on above: Botox Approved Start: 03-22-2025 End: 03-22-[address] Brett Quiroga MD -[facility] Work Phone: Start: 03-22-2025 End: 03-22-[address] Ivette Grimes MD Work Phone: [facility] Work Phone: Start: 03-19-2025 End: 03-19-2025 Telephone encounter Amanda Arteaga PA-C Work Phone: Neurology Comment on above: Botox Referral Start: 03-11-2025 End: 03-11-[address] Ivette Grimes MD Work Phone: [facility] Work Phone: Start: 03-11-2025 End: 03-11-[address] Brett Quiroga MD -Radiology, [facility] Work Phone: Start: 03-11-2025 End: 03-11-2025 ambulatory Ivette Grimes Facility:[facility] Start: 03-09-2025 End: 03-09-[address] Bibiana Rehman DC -[facility] Work Phone: Start: 03-09-2025 End: 03-09-2025 ambulatory [place] [facility] Start: 03-09-[address] Ivette [...] Ivette Grimes MD Work Phone: [facility] [place] Start: 03-02-2025 End: 03-02-2025 ambulatory Ivette Grimes MD Work Phone: [facility] [place] Comment on above: Intractable chronic migraine without aura and without status migrainosus (Primary Dx); Chronic left shoulder pain Start: 02-16-2025 ambulatory [facility] Start: 02-04-2025 End: 02-04-[address] Bibiana Rehman DC -[facility] Work Phone: Start: 02-04-2025 End: 02-04-2025 ambulatory Ivette [place] Facility:[facility] Start: 01-28-2025 End: 01-28-2025 Chart abstracting [...] ambulatory Dr. Ivette Grimes MD Work Phone: [facility] Work Phone: Start: 01-28-2025 End: 01-28-[address] Ivette Grimes MD -Laboratory Work Phone: Start: 01-28-2025 End: 01-28-2025 [facility]ulatory [facility] Start: 01-22-2025 End: 01-22-2025 [facility] Start: 01-22-2025 End: 01-22-2025 Patient encounter procedure Ivette Grimes MD Work Phone: [facility] Comment on above: LETITIA (obstructive sle ep apnea) (Primary Dx); Flank pain; Headache, unspecified headache type; Type 2 diabetes mellitus with microalbuminuria, with long-term current use of insulin (HCC); Essential (primary) hypertension; Chronic left shoulder pain; Anxiety; Screening for depression Start: 12-24-2024 End: 12-25-2024 Refill Ivette Grimes MD Work Phone: [facility] Comment on above: Refill Request Start: 12-21-2024 End: 12-24-2024 Telephone encounter Jenni Jain APRN.TERRITORY SALES PROFESSIONAL Work Phone: [facility] Comment on above: Results (Labs/Chest xray ) Start: 12-11-2024 End: 12-11-2024 Telephone encounter Ivette Grimes MD Work Phone: [facility] Comment on above: Orders Start: 12-11-2024 End: 12-11-2024 Patient encounter procedure Jenni THORNE -Radiology, [facility] Work Phone: Start: 12-11-2024 End: 12-11-2024 Office outpatient visit 25 minutes Jenni Jain APRN.TERRITORY SALES PROFESSIONAL Work Phone: [facility] Comment on above: Sinobronchitis (Prim ziyad Dx); Hypokalemia Start: 12-11-2024 End: 12-11-2024 ambulatory JENNIFRANK MAHANJenny Facility:[facility] Start: 12-11-2024 End: 12-11-2024 ambulatory Ivette Grimes Facility:[facility] Start: 11-25-2024 End: 11-25-2024 Refill Ivette Grimes MD Work Phone: [facility] Comment on above: Refill Request Start: 11-23-2024 End: 11-23-2024 Refill Ivette Grimes MD Work Phone: [facility] Comment on above: Refill Request Start: 11-17-2024 End: 12-18-2024 ambulatory Ivette Grimes MD Work Phone: [facility] Start: 11-11-2024 End: 11-11-2024 Emergency department patient visit Dr. Buddy Hall DO -Emergency Department Work Phone: Start: 10-26-2024 End: 10-26-2024 Refill Ivette Grimes MD Work Phone: Psychiatry Comment on above: Refill Request Start: 10-19-2024 End: 10-19-2024 ambulatory Ivette Grimes MD Work Phone: [facility] Comment on above: Flank pain (Primary Dx) Start: 10-19-2024 End: 10-19-2024 Telemedicine consultation with patient Ivette Grimes MD Work Phone: [facility] Start: 10-19-2024 End: 10-19-[address] Bibiana Rehman DC -[facility] Work Phone: Start: 10-19-2024 End: 10-19-2024 ambulatory Iv[facility] [place] [facility] Start: 10-16-2024 End: 10-16-2024 Emergency department patient visit Dr. Sam Pearl MD -Emergency Department Work Phone: Start: 10-07-2024 ambulatory Ivette [place] [facility] Start: 09-24-2024 End: 09-24-2024 ambulatory Ivette Grimes MD Work Phone: [facility] Comment on above: Dysuria (Primary Dx) ; Type 2 diabetes mellitus with microalbuminuria, with long-term current use of insulin (HCC); Primary insomnia Start: 09-24-2024 End: 09-24-2024 Telemedicine consultation with patient Ivette Grimes MD Work Phone: [facility] Start: 09-03-2024 End: 09-03-2024 Patient [...] Grimes MD Work Phone: [facility] [place] Comment on above: Refill Request Start: 08-05-2024 End: 08-06-2024 Telephone encounter Ivette Grimes MD Work Phone: [facility] [place] Comment on above: Insurance Authorizat ion (Ozempic ) Start: 08-05-2024 End: 08-05-2024 Patient encounter procedure Ivette Grimes MD Work Phone: [facility] [place] Comment on above: Well adult exam ([facility] alyssa Dx); Essential (primary) hypertension; LETITIA (obstructive sleep apnea); Nonalcoholic fatty liver; Type 2 diabetes mellitus with microalbuminuria, with long-term current use of insulin (HCC); Vertigo; Morbid obesity (HCC); Anxiety; Prolonged Q-T interval on ECG; Herniation of lumbar intervertebral disc with radiculopathy Start: 08-05-2024 End: 08-05-2024 Patient encounter status Ivette Grimes MD Work Phone: [facility] Start: 07-24-2024 End: 07-27-2024 Refill Ivette Grimes MD Work Phone: Psychiatry Comment on above: Refill Request Start: 07-21-2024 End: 07-21-2024 Telephone encounter Ivette Grimes MD Work Phone: [facility] [place] Comment on above: Orders Start: 07-09-2024 End: 07-10-2024 Telephone encounter Ivette Grimes MD Work Phone: [facility] [place] Comment on above: Patient Question Start: 07-08-2024 End: 07-08-2024 Chart abstracting Ivette Grimes MD Work Phone: [facility] [place] Start: 07-08-2024 End: 07-08-2024 Telephone encounter Ivette Grimes MD Work Phone: [facility] [place] Comment on above: Results Start: 07-07-2024 End: [...] Ivette Grimes MD Work Phone: [facility] [place] Comment on above: Good Afternoon Start: 06-05-2024 ambulatory Fatuma vásquez PA-C Work Phone: Neurology Comment on above: Botox Start: 06-05-2024 E-mail encounter fro m caregiver Fatuma Beckford PA-C Work Phone: Neurology Start: 06-04-2024 Telephone encounter Fatuma perales PA-C Work Phone: Neurology Comment on above: [facility] Start: 06-03-2024 End: 06-03-2024 ambulatory Ivette Grimes MD Work Phone: [facility] [place] Comment on above: Left sided sciatica (Primary Dx); Screening for depression Start: 06-03-2024 End: 06-03-2024 Telemedicine consultation with patient Ivette Grimes MD Work Phone: [facility] [place] Start: 05-12-2024 Refill Ivette Grimes MD Work Phone: [facility] [place] Comment on above: Refill Request Start: 05-01-2024 Telephone encounter Ivette Grimes MD Work Phone: [facility] Comment on above: medication not on cu rrent medication list Start: 04-20-2024 Refill Ivette Grimes MD Work Phone: [facility] [place] Comment on above: Refill Request Start: 04-19-2024 Refill Ivette Grimes MD Work Phone: [facility] Comment on above: Refill Request Start: 04-14-2024 Refill Grace morales APRN.TERRITORY SALES PROFESSIONAL Work Phone: Psychiatry Comment on above: Refill Request Insurance Authorizat ion ([employer] ) Start: 04-06-2024 Telephone encounter Fatuma perales PA-C Work Phone: Neurology Comment on above: Insurance Authorizat ion (Botox ) Start: 04-02-2024 End: 04-02-2024 Patient encounter procedure Fatuma Beckford PA-C Work Phone: Neurology Comment on above: Intractable chronic migraine without aura and without status migrainosus (Primary Dx) Start: 02-28-2024 Refill Stephanie Paz APRN.TERRITORY SALES PROFESSIONAL Work Phone: [facility] [place] Comment on above: Refill Request Start: 02-04-2024 End: 02-04-2024 Emergency department patient [facility] Ivette [facility] Work Phone: Start: 01-22-2024 Refill Ivette Grimes MD Work Phone: [facility] Comment on above: Refill Request Start: [...] encounter procedure Dr. Ivette Grimes Work Phone: [facility]-Pulmonary Medicine [facility] Work Phone: Start: 12-09-2023 End: 12-09-2023 Patient encounter procedure Ivette Grimes MD Work Phone: [facility] Comment on above: Essential (primary) hypertension (Primary Dx); LETITIA (obstructive sleep apnea); Fatty liver; Vertigo; Anxiety Start: 12-09-2023 Telephone encounter Ivette Grimes MD Work Phone: [facility] Comment on above: Orders Start: 12-06-2023 End: 12-06-[address] Ivette Grimes Work Phone: [facility] Work Phone: Start: 12-06-2023 End: 12-06-[address] Ivette Grimes Work Phone: [facility]-Laboratory, [facility] Start: 12-05-2023 ambulatory Ivette Grimes MD Work Phone: [facility] Comment on above: Labs Start: 10-27-2023 End: 10-27-2023 Emergency department patient visit Self Referred [facility]-Emergency Department Work Phone: Start: 10-14-2023 Refill Ivette Grimes MD Work Phone: [facility] [place] Comment on above: Refill Request Start: 09-23-2023 Refill Adriana Silke Gage Work Phone: Psychiatry Comment on above: Refill Request Start: 09-12-2023 End: 09-12-2023 Patient encounter procedure Self Referred [facility] Work Phone: Start: 09-09-2023 Refill Ivette Grimes MD Work Phone: [facility] [place] Comment on above: Refill Request Start: 08-21-2023 E-mail encounter fro m caregiver [facility] Start: 08-21-2023 Patient encounter procedure [facility] Neurology Comment on above: Botox Appointment Start: 08-20-2023 Telephone encounter Ivette Grimes MD Work Phone: Family [facility] [place] Comment on above: Forms ([facility] preventat ashish care ) Start: 08-15-2023 End: 08-15-2023 Patient encounter procedure Self Referred [facility] Work Phone: Start: 08-07-2023 Non-patient / Non-visit Self Referre d [facility] Inpatient Physicians Work Phone: Start: 08-06-2023 Non-patient / Non-visit Self Referre d [facility] Work Phone: Start: 08-06-2023 Non-patient / Non-visit Self Referre d [facility] Start: 08-05-2023 End: 08-07-2023 Evaluation and management of inpatient Dr. Ivette Grimes Work Phone: [facility]-Progressive Care Unit Work Phone: Start: 08-05-[address] Reji Grimes Work Phone: [facility] Work Phone: Start: 08-01-2023 End: 08-01-[address] Ivette Grimes Work Phone: [facility] Work Phone: Start: 08-01-2023 End: 08-01-2023 ambulatory Self Referred [facility] Work Phone: Start: 08-01-2023 End: 08-01-2023 [facility]charged [facility] Start: 08-01-[address] Gerald Grimes Work Phone: [facility]-Physical Therapy Work Phone: Start: 07-18-2023 End: 07-18-[address] Ivette Grimes Work Phone: [facility] Work Phone: Start: 07-18-2023 End: 07-18-[address] Ivette Grimes Work Phone: [facility] Work Phone: Start: 07-18-2023 End: 07-18-[address] Ivette Grimes [facility]: Start: 07-05-2023 Refill Ivette Grimes MD Work Phone: [facility] Comment on above: Refill Request Start: 06-20-2023 End: 06-20-[address] Ivette Grimes Work Phone: [facility] Work Phone: Start: 06-19-2023 End: 06-20-2023 [...] Ivette Grimes Work Phone: [facility] Work Phone: Start: 06-06-2023 End: 06-06-2023 Patient encounter procedure Ivette Grimes MD Work Phone: [facility] [place] Comment on above: Type 2 diabetes fred [...] encounter procedure Isiah Funes APRN.CNP Work Phone: [place] [facility] Comment on above: Foot pain, right (Pr imary Dx) Start: 05-29-2023 Telephone encounter Nicole vaca PA-C Work Phone: Urgent Care Comment on above: Pt requesting Boot Start: 05-28-2023 End: 05-28-2023 Subsequent hospital visit by physician [facility] Work Phone: Radiology Comment on above: Pain of right heel [ M79.671] Start: 05-20-2023 End: 05-20-2023 Emergency department patient visit Dr. Ivette Grimes Work Phone: [facility]-Emergency Department Work Phone: Start: 05-17-2023 End: 05-17-2023 Patient encounter procedure Fatuma Beckford PA-C Work Phone: Neurology Comment on above: Intractable chronic migraine without aura and without status migrainosus (Primary Dx); Post concussive syndrome Start: 05-09-[address] Gerald Grimes Work Phone: [facility]-Physical Therapy Work Phone: Start: 05-07-2023 Refill Ivette Grimes MD Work Phone: [facility] Comment on above: Refill Request Start: 04-30-2023 End: 04-30-[address] Ivette Grimes Work Phone: [facility] Work Phone: Start: 04-16-2023 End: 04-16-[address] Ivette Grimes Work Phone: [facility] Work Phone: Start: 04-04-2023 Refill Ivette Grimes MD Work Phone: [facility] Comment on above: Refill Request Start: 04-02-2023 End: 04-02-[address] Ivette Grmies Work Phone: [facility] Work Phone: Start: 04-02-2023 End: 04-02-[address] Ivette Grimes Work Phone: [facility] Work Phone: Start: 04-02-2023 End: 04-02-[address] Ivette Grimes Work Phone: [facility]-Pulmonary Services/Neurology Work Phone: Start: 03-20-2023 Telephone encounter Fatuma perales PA-C Work Phone: Neurology Comment on above: Medication Authoriza tion (Botox renewal ) Start: 03-19-2023 End: 03-19-[address] Ivette Grimes Work Phone: [facility] Work Phone: Start: 03-12-2023 ambulatory Fatuma vásquez PA-C Work Phone: Neurology Comment on above: EEG Start: 03-09-2023 ambulatory Karen lópez FOSTER CARE THERAPIST.TERRITORY SALES PROFESSIONAL Work Phone: Neurology Comment on above: Botox Start: 03-05-[address] Gerald Grimes Work Phone: [facility]-Physical Therapy Start: 03-05-2023 End: 03-05-2023 Patient [...] ambulatory Ivette Grimes MD Work Phone: [facility] Comment on above: Question regarding M ICROALBUMIN/CREATININE UR W RATIO (EXTERNAL) labs Start: 03-04-2023 E-mail encounter fro m caregiver Ivette Grimes MD Work Phone: [facility] Start: 03-04-2023 Telephone encounter Ivette Grimes MD Work Phone: [facility] [place] Comment on above: Medication change re quested Start: 03-04-2023 End: 03-04-[address] Ivette Grimes Work Phone: [facility]-Laboratory, OP Pavilion Start: 03-01-2023 Telephone encounter Ivette Price MD Work Phone: Neurology Comment on above: Appointment Start: 03-01-2023 End: 03-01-2023 Patient encounter procedure Ivette Price MD Work Phone: Neurology Comment on above: Post concussion synd roberta (Primary Dx); LETITIA (obstructive sleep apnea) Start: 02-28-2023 End: 02-28-2023 Patient encounter procedure Ivette Grimes MD Work Phone: [facility] Comment on above: Soft tissue mass (Pr imary Dx); Post concussive syndrome; Essential (primary) hypertension; Type 2 diabetes mellitus with microalbuminuria, with long-term current use of insulin (HCC); Headache, unspecified headache type; Myalgia Start: 02-28-2023 End: 02-28-[address] Ivette Grimes Work Phone: [facility] Start: 02-28-2023 End: 02-28-2023 Subsequent hospital visit by physician Mri Radio [facility] W[facility] (I-Stat/1.5t) Work Phone: Radiology Comment on above: Post concussion synd roberta [F07.81] Start: 02-27-2023 Telephone encounter Ivette Grimes MD Work Phone: [facility] Comment on above: Medication Request Start: 02-22-2023 Refill Ivette Grimes MD Work Phone: [facility] Comment on above: Refill Request Start: 02-15-2023 End: 02-15-2023 [facility] Grace Coronel APRN.CNP Work Phone: Psychiatry Comment on above: VAHE (generalized anx iety disorder) (Primary Dx); Recurrent major depressive disorder, in full remission (HCC) Start: 02-14-2023 End: 02-14-[address] Ivette Grimes Work Phone: [facility] Start: 02-14-[address] Gerald Grimes [facility] Start: 02-11-2023 Refill Ivette Grimes MD Work Phone: [facility] Comment on above: Refill Request Start: 02-09-2023 Telephone encounter Ivette Grimes MD Work Phone: [facility] Comment on above: Results Start: 02-08-2023 End: 02-08-[address] Ivette Grimes Work Phone: [facility] Work Phone: Start: 02-08-2023 End: 02-08-[address] Ivette Grimes Work Phone: [facility]-Ultrasound, [facility] Start: 01-31-2023 Telephone encounter Ivette Grimes MD Work Phone: [facility] Comment on above: Orders Start: 01-31-2023 End: 01-31-[address] Ivette Grimes Work Phone: [facility] Start: 01-31-2023 End: 01-31-2023 Patient encounter procedure Ivette Grimes MD Work Phone: [facility] Comment on above: Post concussive synd roberta (Primary Dx); Headache, unspecified headache type; Injury of neck, subsequent encounter Start: 01-24-2023 End: 01-24-2023 ambulatory ELLE RASHEED Facility:[facility] Start: 01-24-2023 End: 01-24-2023 Patient encounter procedure Elle Rasheed MD Work Phone: [facility] Comment on above: Chronic left shoulde r pain (Primary Dx); Adhesive capsulitis of left shoulder; Neuropathic pain; Primary osteoarthritis of left shoulder; Myofascial pain; Lumbar spondylosis Start: 01-22-2023 End: 01-22-2023 Patient encounter procedure Karen Bansal APRN.TERRITORY SALES PROFESSIONAL Work Phone: Neurology Comment on above: Intractable chronic migraine without aura and without status migrainosus (Primary Dx) Start: 01-17-2023 End: 01-17-[address] Ivette Grimes Work Phone: [facility] Work Phone: Start: 01-17-2023 End: 01-17-[address] Ivette Grimes [facility] Start: 01-17-2023 End: 01-17-2023 Patient encounter procedure Ivette Grimes MD Work Phone: [facility] [place] Comment on above: Post concussive synd roberta (Primary Dx); Headache, unspecified headache type; Injury of neck, subsequent encounter Start: 01-17-2023 End: 01-17-[address] Ivette Grimes Work Phone: [facility] Start: 01-09-2023 Refill Ivette Grimes MD Work Phone: [facility] [place] Comment on above: Refill Request Start: 01-08-2023 Telephone encounter Ivette Grimes MD Work Phone: [facility] [place] Comment on above: Insurance Authorizat ion (Trulicity ) Start: 01-04-2023 End: 01-04-2023 Patient encounter procedure Ivette Grimes MD Work Phone: [facility] Comment on above: Post concussive synd roberta (Primary Dx); Headache, unspecified headache type Start: 01-03-2023 End: 01-03-[address] Ivette Grimes Work Phone: [facility] Start: 01-02-2023 End: 01-02-2023 ambulatory [facility] Facility:[facility] Start: 01-01-2023 Telephone encounter Ivette Grimes MD Work Phone: [facility] [place] Comment on above: Patient Update Start: 12-28-2022 End: 12-28-[address] Ivette Grimes Work Phone: [facility] Start: 12-26-2022 End: 12-26-2022 Patient encounter procedure Ivette Grimes MD Work Phone: [facility] [place] Comment on above: Post concussion synd roberta (Primary Dx); Essential (primary) hypertension Refill Request Start: 12-24-2022 Refill Karennu lópez APRN.CNP Work Phone: Neurology Comment on above: Refill Request MRI'S need prior aut horization with workman comp Start: 12-20-2022 End: 12-20-[address] Ivette Grimes Work Phone: [facility] Start: 12-14-2022 End: 12-14-2022 Patient encounter procedure Ivette Grimes MD Work Phone: [facility] Comment on above: Post concussion synd roberta (Primary Dx); Essential (primary) hypertension; Microalbuminuria; Type 2 diabetes mellitus without complication, with long-term current use of insulin (HCC) Start: 12-11-2022 Refill Ivette Grimes MD Work Phone: [facility] Comment on above: Refill Request Mri Start: 12-07-2022 End: 12-07-2022 Patient encounter procedure Ivette Price MD Work Phone: Neurology Comment on above: Post concussion synd roberta (Primary Dx); Intractable acute post-traumatic headache; Dizziness; Cervicalgia; History of migraine; LETITIA (obstructive sleep apnea) Start: 12-07-2022 End: 12-07-2022 Patient encounter procedure Ivette Grimes MD Work Phone: [facility] Comment on above: Headache, unspecifie d headache type (Primary Dx); Concussion with loss of consciousness, initial encounter Start: 12-06-2022 End: 12-06-[address] Ivette Grimes Work Phone: [facility] Start: 12-06-2022 End: 12-06-[address] Ivette Grimes Work Phone: [facility] Start: 12-04-2022 Telephone encounter Ivette Grimes MD Work Phone: [facility] Comment on above: Hank requesting records Start: 12-03-2022 End: 12-03-2022 Emergency department patient visit Dr. Ivette Grimes Work Phone: [facility]-Emergency Department Start: 12-03-2022 Telephone encounter Ivette Grimes MD Work Phone: [facility] Comment on above: Patient Update Start: 11-30-2022 End: 11-30-2022 ambulatory Ivette Grimes MD Work Phone: [facility] Comment on above: Headache, unspecifie d headache type (Primary Dx); Concussion with loss of consciousness, initial encounter Start: 11-30-2022 End: 11-30-2022 Telemedicine consultation with patient Ivette Grimes MD Work Phone: [facility] Start: 11-29-2022 Telephone encounter Elle Rasheed MD Work Phone: [facility] [place] Comment on above: Patient Question ( john paul appointment on 12/05/22) Start: 11-27-2022 End: 11-27-2022 Emergency department patient visit Dr. Ivette Grimes Work Phone: [facility]Emergency Department Start: 11-27-2022 End: 11-27-[address] Ivette Grimes Work Phone: [facility] Comment on above: Worst headache of li fe (Primary Dx); Concussion with loss of consciousness, initial encounter Start: 11-27-[address] Gerald Grimes Work Phone: [facility] Start: 11-24-2022 End: 11-24-2022 Emergency department patient visit Dr. Ivette Grimes Work Phone: [facility]-Emergency Department Start: 11-23-2022 Refill Ivette Grimes MD Work Phone: [facility] Comment on above: Refill Request Start: 11-22-[address] Gerald Grimes [facility] Start: 11-22-2022 End: 11-22-[address] Ivette Grimes Work Phone: [facility] Start: 11-20-2022 Orders Only Elle Rasheed MD Work Phone: [facility] [place] Comment on above: Chronic left shoulde r pain (Primary Dx); Adhesive capsulitis of left shoulder Start: 11-15-2022 Refill Ivette Grimes MD Work Phone: [facility] [place] Comment on above: Refill Request Start: 11-08-2022 End: 11-08-2022 ambulatory ADELINA MARINELLI Facility:[facility] Start: 11-08-2022 Telephone encounter Elle Rasheed MD Work Phone: [facility] Comment on above: Injections Start: 11-08-2022 End: 11-08-2022 Patient encounter procedure Adelina Marinelli FOSTER CARE THERAPIST.TERRITORY SALES PROFESSIONAL Work Phone: [facility] Comment on above: Chronic left shoulde r pain (Primary Dx); Adhesive capsulitis of left shoulder; Neuropathic pain; Myofascial pain Start: 11-08-2022 End: 11-08-[address] Ivette Grimes Work Phone: [facility] Start: 10-23-2022 End: 10-23-[address] Ivette Grimes Work Phone: [facility] Start: 10-16-2022 End: 10-16-[address] Ivette Grimes Work Phone: [facility] Start: 10-16-[address] Gerald Grimes Work Phone: [facility]-Physical Therapy Start: 10-15-2022 End: 10-15-[address] Ivette Grimes Work Phone: [facility] Work Phone: Start: 10-15-2022 End: 10-15-[address] Ivette Grimes Work Phone: [facility]-Sleep Lab Start: 10-12-2022 End: 10-12-2022 [facility] Grace Coronel FOSTER CARE THERAPIST.TERRITORY SALES PROFESSIONAL Work Phone: Psychiatry Comment on above: VAHE (generalized anx iety disorder) (Primary Dx); Major depressive disorder, recurrent episode, moderate (HCC) Start: 10-10-2022 ambulatory [facility] Comment on above: Botox Start: 10-10-2022 E-mail encounter escobar cedeno caregiver [facility] Start: 10-06-2022 Refill Tara alcantar FOSTER CARE THERAPIST.TERRITORY SALES PROFESSIONAL Work Phone: Neurology Comment on above: Refill Request Start: 10-05-2022 Refill Ivette Grimes MD Work Phone: [facility] Comment on above: Refill Request Start: 10-02-2022 Telephone encounter Adelina lazaro FOSTER CARE THERAPIST.TERRITORY SALES PROFESSIONAL Work Phone: [facility] [place] Comment on above: Appointment; Patient Question Start: 10-02-2022 End: 10-02-[address] Ivette Grimes Work Phone: [facility] Start: 09-19-2022 Refill Ivette Grimes MD Work Phone: [facility] Comment on above: Refill Request Start: 09-13-2022 End: 09-13-[address] Ivette Grimes Work Phone: [facility] Start: 09-13-[address] Gerald Grimes [facility] Phone[facility] Start: 09-12-2022 ambulatory Ivette Grimes MD Work Phone: [facility] Start: 09-12-2022 Chart abstracting Rivka Wilson Work Phone: Adult Psychology Comment on above: Behavioral [facility] Work Start: 09-12-2022 Follow-up encounter Ivette Grimes MD Work Phone: [facility] Comment on above: Follow up (couldn t reply to other message) Start: 09-06-2022 End: 09-06-2022 Refill Ivette Grimes MD Work Phone: [facility] Comment on above: Refill Request Start: 09-06-2022 End: 09-06-[address] Ivette Grimes Work Phone: [facility]Laboratory, [facility] Start: 09-04-2022 ambulatory Ivette Grimes MD Work Phone: [facility] Comment on above: Migraine/botox quest ion Start: 09-04-2022 End: 09-04-2022 Patient encounter procedure Ivette Grimes MD Work Phone: [facility] Comment on above: Lightheadedness (Carolyn alyssa Dx); Essential (primary) hypertension; Prolonged Q-T interval on ECG; Type 2 diabetes mellitus with microalbuminuria, with long-term current use of insulin (HCC); Fatty liver; LETITIA (obstructive sleep apnea) Start: 09-04-[address] Gerald Grimes Work Phone: [facility]Physical Therapy Start: 09-03-2022 End: 09-03-2022 ambulatory Ivette Grimes MD Work Phone: [facility] Comment on above: Malaise (Primary Dx) Start: 09-03-2022 End: 09-03-2022 Telemedicine consultation with patient Ivette Grimes MD Work Phone: [facility] Start: 09-03-2022 E-mail encounter fro m caregiver [facility] Start: 09-03-2022 Patient encounter procedure [facility] Comment on above: Botox Appointment Start: 08-30-2022 Non-patient / Non-visit Dr. Regina Grimes Work Phone: [facility] Start: 08-30-2022 End: 08-30-[address] Ivette Grimes Work Phone: [facility] Work Phone: Start: 08-30-2022 End: 08-30-[address] Ivette Grimes Work Phone: [facility]-Cardiovascu lar Services Start: 08-29-2022 End: 08-29-[address] Ivette Grimes Work Phone: [facility] Work Phone: Start: 08-29-2022 End: 08-29-[address] Ivette Grimes Work Phone: [facility]Laboratory, [facility] Start: 08-27-2022 ambulatory Ivette Grimes MD Work Phone: [facility] Comment on above: Quick question Start: 08-21-2022 Telephone encounter Karen renee FOSTER CARE THERAPIST.TERRITORY SALES PROFESSIONAL Work Phone: Neurology Comment on above: Medication Authoriza tion (Botox Approved) Start: 08-21-2022 End: 08-21-[address] Ivette Grimes Work Phone: [facility] Start: 08-16-2022 End: 08-16-[address] Ivette Grimes Work Phone: [facility] [facility] Start: 08-16-[address] Gerald Grimes Work Phone: [facility]Physical Therapy Start: 08-10-2022 End: 08-10-[address] Ivette Grimes Work Phone: [facility] Work Phone: Start: 08-10-2022 End: 08-10-[address] Ivette Grimes Work Phone: [facility]-Outpatient Breast Imaging Start: 08-08-2022 Chart abstracting Ivette Martínez MD Work Phone: [facility] Start: 08-08-2022 Telephone encounter Adelina lazaro FOSTER CARE THERAPIST.TERRITORY SALES PROFESSIONAL Work Phone: [facility] [place] Comment on above: Patient Update Start: 08-08-2022 End: 08-08-[address] Ivette Grimes Work Phone: [facility] Work Phone: Start: 08-08-2022 End: 08-08-[address] Ivetet Grimes Work Phone: [facility] Start: 08-07-[address] Gerald Grimes Work Phone: [facility] Therapy Start: 08-07-2022 End: 08-07-[address] Ivette Grimes Work Phone: [facility]-Pulmonary Medicine [facility] Start: 08-06-2022 ambulatory Ivette Grimes MD Work Phone: [facility] Comment on above: Labs Start: 08-02-2022 ambulatory Karen lópez APRN.TERRITORY SALES PROFESSIONAL Work Phone: Neurology Comment on above: Migraines Start: 08-02-2022 End: 08-02-[address] Ivette Grimes Work Phone: [facility] Start: 08-02-2022 End: 08-02-2022 Patient encounter procedure Ivette Grimes MD Work Phone: [facility] Comment on above: Type 2 diabetes fred itus with microalbuminuria, with long-term current use of insulin (HCC) (Primary Dx); Fatty liver; LETITIA (obstructive sleep apnea); Microalbuminuria; Lumbar disc disorder; Prolonged Q-T interval on ECG; Fatigue, unspecified type Start: 08-01-2022 ambulatory Ivette Grimes MD Work Phone: [facility] Comment on above: [employer] Start: 08-01-2022 Telephone encounter Karen renee APRN.TERRITORY SALES PROFESSIONAL Work Phone: Neurology Comment on above: Medication Authoriza tion (Botox referral) Start: 07-24-2022 End: 07-24-[address] Ivette Grimes Work Phone: [facility] Start: 07-24-2022 End: 07-24-[address] Ivette Grimes Work Phone: [facility] Work Phone: Start: 07-24-2022 End: 07-24-[address] Ivette Grimes Work Phone: [facility] Start: 07-23-2022 Refill Ivette Grimes MD Work Phone: [facility] Comment on above: Refill Request Start: 07-19-2022 Telephone encounter Elle Rasheed MD Work Phone: [facility] Comment on above: Patient Update (Inje ction questions ) Start: 07-19-2022 End: 07-19-2022 Patient encounter procedure Karen Bansal APRN.TERRITORY SALES PROFESSIONAL Work Phone: Neurology Comment on above: Intractable chronic migraine without aura and without status migrainosus (Primary Dx); Mixed migraine and muscle contraction headache Start: 07-19-2022 End: 07-19-2022 ambulatory ADELINA ALBERTOFIELD Facility:[facility] Start: 07-10-2022 Refill Krystle Barahona on PA-C Work Phone: [facility] Comment on above: Refill Request Start: 07-10-2022 End: 07-10-[address] Ivette Grimes Work Phone: [facility] Start: 07-03-2022 ambulatory Tara alcantar APRN.TERRITORY SALES PROFESSIONAL Work Phone: Neurology Comment on above: Medication Question Start: 06-28-2022 End: 06-28-[address] Ivette Grimes Work Phone: [facility] Start: 06-22-2022 Refill Ivette Grimes MD Work Phone: [facility] [place] Comment on above: Refill Request Start: 06-07-2022 End: 06-07-2022 Patient encounter procedure Tara Gillette APRN.TERRITORY SALES PROFESSIONAL Work Phone: Neurology Comment on above: Intractable migraine without aura and without status migrainosus (Primary Dx); Medication overuse headache; LETITIA (obstructive sleep apnea); Class 3 severe obesity with body mass index (BMI) of 45.0 to 49.9 in adult, unspecified obesity type, unspecified whether serious comorbidity present (HCC) Start: 06-07-2022 Telephone encounter Tara Herndon APRN.TERRITORY SALES PROFESSIONAL Work Phone: Neurology Comment on above: Orders Start: 06-05-2022 ambulatory Ivette guzman MD Work Phone: Neurology Comment on above: Labs Start: 06-05-2022 E-mail encounter fro m caregiver Ivette Grimes MD Work Phone: [facility] Start: 06-05-[address] Luz Grimes Work Phone: [facility] Start: 06-04-2022 End: 06-04-[address] Ivette Grimes Work Phone: [facility] Start: 05-29-2022 Telephone encounter Tara Herndon APRN.TERRITORY SALES PROFESSIONAL Work Phone: Neurology Comment on above: Appointment Start: 05-29-2022 End: 05-29-[address] Ivette Grimes Work Phone: [facility] Start: 05-24-2022 End: 05-24-2022 ambulatory ADELINA MARINELLI Facility:[facility] Start: 05-24-2022 End: 05-24-2022 Patient encounter procedure Adelina Marinelli FOSTER CARE THERAPIST.TERRITORY SALES PROFESSIONAL Work Phone: [facility] Comment on above: Chronic left shoulde r pain (Primary Dx); Adhesive capsulitis of left shoulder; Primary osteoarthritis of left shoulder; Myofascial pain Start: 05-14-2022 End: 05-14-[address] Ivette Grimes Work Phone: [facility] Start: 05-11-2022 Telephone encounter Elle Rasheed MD Work Phone: [facility] [place] Comment on above: Procedure Follow Up Start: 05-10-2022 End: 05-10-2022 ambulatory ELLE RASHEED Facility:[facility] Start: 05-10-2022 End: 05-10-2022 ambulatory Elle Rasheed MD Work Phone: [facility] [place] Comment on above: Procedure Start: 05-10-2022 End: 05-10-2022 Patient encounter procedure Elle Rasheed MD Work Phone: [facility] Start: 05-08-2022 ambulatory Ivette Grimes MD Work Phone: [facility] Start: 05-08-2022 Follow-up encounter Ivetet Grimes MD Work Phone: [facility] Comment on above: Follow up from last appointment Start: 05-04-2022 End: 05-04-[address] Ivette Grimes Work Phone[facility] Start: 05-03-2022 Refill Ivette Grimes MD Work Phone: [place] [facility] Comment on above: Refill Request Start: 05-01-2022 End: 05-01-2022 Patient encounter procedure Ivette Grimes MD Work Phone: [facility] Comment on above: Microalbuminuria (Pr imary Dx); Anxiety; Type 2 diabetes mellitus with microalbuminuria, with long-term current use of insulin (HCC); Fatty liver; LETITIA (obstructive sleep apnea); Lumbar herniated disc; 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 Ivette Grimes Work Phone: [facility] Start: 04-19-2022 ambulatory Ivette Grimes MD Work Phone: [facility] Comment on above: Lyrica Start: 04-17-2022 End: 04-17-[address] Ivette Grimes Work Phone: [facility] Chiropractic Start: 04-16-2022 Refill Ivette Grimes MD Work Phone: [facility] Comment on above: Refill Request [employer] [...] 04-05-2022 Refill Ivette Grimes MD Work Phone: [facility] Comment on above: Refill Request Start: 04-03-2022 End: 04-03-[address] Ivette Grimes Work Phone: [facility] Start: 03-30-2022 Refill Ivette Grimes MD Work Phone: [facility] Comment on above: Refill Request Start: 03-29-2022 Telephone encounter Elle Rasheed MD Work Phone: [facility] Comment on above: Injections Start: 03-29-2022 End: 03-29-2022 ambulatory ELLE RASHEED Facility:[facility] Start: 03-29-2022 End: 03-29-2022 Patient encounter procedure Elle Rasheed MD Work Phone: [facility] Comment on above: Myofascial pain (Carolyn alyssa Dx); Chronic left shoulder pain; Neuropathic pain; Adhesive capsulitis of left shoulder; Primary osteoarthritis of left shoulder Start: 03-16-2022 Refill Ivette Grimes MD Work Phone: Family [facility] Comment on above: Refill Request Start: 03-03-2022 Refill M Glen Barahona on PA-C Work Phone: Family [facility] [place] Comment on above: Refill Request Start: 02-28-2022 End: 02-28-2022 Patient encounter procedure Ivette Grimes MD Work Phone: Family [facility] [place] Comment on above: Upper back pain (Carolyn alyssa Dx); Acute midline low back pain without sciatica; Type 2 diabetes mellitus with microalbuminuria, with long-term current use of insulin (HCC); LETITIA (obstructive sleep apnea); Lumbar disc disorder; Elevated BP without diagnosis of hypertension Start: 02-27-2022 ambulatory Ivette Grimes MD Work Phone: [facility] Comment on above: ER Start: 02-23-2022 Refill Ivette Grimes MD Work Phone: [facility] [place] Comment on above: Refill Request Start: 02-19-2022 E-mail encounter fro m caregiver Ivette Price Jr., MD Work Phone: [facility] Start: 02-19-2022 Patient encounter procedure Ivette Price MD Work Phone: Neurology Comment on above: Request an Appointme nt Start: 02-08-2022 Chart abstracting Ivette Martínez MD Work Phone: [facility] [place] Start: 02-07-2022 ambulatory Ivette Grimes MD Work Phone: [facility] [place] Comment on above: Lab work Start: 02-07-2022 E-mail encounter fro m caregiver Ivette Grimes MD Work Phone: [facility] [place] Start: 02-07-2022 Telephone encounter Ivette Grimes MD Work Phone: [facility] [place] Comment on above: Results Start: 02-07-2022 End: 02-07-[address] Ivette Grimes Work Phone: [facility]-Laboratory, Future Start: 02-06-[address] Gerald Grimes Work Phone: [facility] Therapy Start: 02-06-2022 End: 02-06-[address] Ivette Grimes Work Phone: [facility] Start: 02-05-2022 ambulatory Ivette Grimes MD Work Phone: [facility] [place] Comment on above: Lab work Start: 01-29-2022 Telephone encounter Elle Rasheed MD Work Phone: [facility] [place] Comment on above: New Patient Start: 01-23-2022 End: 01-23-[address] Ivette Grimes Work Phone: [facility] Start: 01-09-2022 End: 01-09-[address] Ivette Grimes Work Phone: [facility] Start: 01-09-2022 Non-patient / Non-visit Dr. Regina Grimes Work Phone: [facility] Start: 01-09-2022 End: 01-09-[address] Ivette Grimes Work Phone: [facility] Start: 01-01-2022 End: 01-01-[address] Ivette Grimes Work Phone: [facility] Start: 12-26-2021 End: 12-26-[address] Ivette Grimes Work Phone: [facility] Start: 11-29-2021 End: 11-29-[address] Ivette Grimes Work Phone: [facility] Start: 11-23-2021 End: 11-23-[address] Ivette Grimes Work Phone: [facility] Start: 11-21-2021 End: 11-21-[address] Ivette Grimes Work Phone: [facility] Start: 11-09-2021 End: 11-09-[address] Ivette Grimes Work Phone: [facility] Start: 10-24-2021 End: 10-24-[address] Ivette Grimes Work Phone: [facility] Start: 12-06-2012 End: 02-22-2014 Patient encounter status Stephanie Paz FOSTER CARE THERAPISTStephanyTERRITORY SALES PROFESSIONAL Work Phone: [facility] Start: 01-23-2010 End: 02-22-2014 Patient encounter status Stephanie Paz FOSTER CARE THERAPIST.TERRITORY SALES PROFESSIONAL Work Phone: [facility] Procedures Date Procedure Procedure Detail Performing Clinician [...] 06-09-[address] (FOR REMOTE [facility] USE) [facility] Provider Start: 06-05-2025 Lactate [...] SARS-CoV-2, Influenz a & RSV (PCR) Dr. Ivtete Grimes Work Phone: Start: 02-04-2024 Plain chest [...] Visit Annual PCP Team Chronic Disease Visit [facility] Start: 06-07-2026 Annual PCP Team Chronic Disease Visit Annual PCP Team Chronic Disease Visit [facility] Start: 05-03-2026 Influenza vaccination Influenza Vaccine (#1) [facility] Comment on above: Postponed from 07/05/2025 (Declined at t his time) Start: 03-02-2026 Annual PCP Team Chronic Disease Visit Annual PCP Team Chronic Disease Visit [facility] Start: 02-04-2026 Glaucoma screening Dilated Retinal Exam [facility] Start: 01-22-2026 Annual PCP Team Chronic Disease Visit Annual PCP Team Chronic Disease Visit [facility] Start: 01-22-2026 BP Controlled (<130/80) BP Controlled (<130/80) [facility] in Start: 01-22-2026 Depression Screening Depression Screening [facility] Start: 12-11-2025 Annual PCP Team Chronic Disease Visit Annual PCP Team Chronic Disease Visit [facility] Start: 12-10-2025 Hemoglobin A1c measurement HbA1C [facility] Start: 10-19-2025 Annual PCP Team Chronic Disease Visit Annual PCP Team Chronic Disease Visit [facility] Start: 09-24-2025 Annual PCP Team Chronic Disease Visit Annual PCP Team Chronic Disease Visit [facility] Start: 08-26-2025 End: 08-26-2025 ambulatory 08/26/2025 9:40 AM EDT [facility] [address] [place], [place] [id number] Ivette Grimes MD [address] [place], [place] [address] Well check [facility] Comment on above: Well check Start: 08-05-2025 Annual PCP Team Chronic Disease Visit Annual PCP Team Chronic Disease Visit [facility] Start: 08-05-2025 BP Controlled (<130/80) BP Controlled (<130/80) [facility] Start: 08-05-2025 Covid-19 Vaccine () Covid-19 Vaccine () [facility] Comment on above: Postponed from 07/05/2024 (Declined at t his time) Start: 08-05-2025 Diabetic foot examination Diabetic Foot Exam [facility] Start: 08-05-2025 Pneumococcal vaccination Pneumococcal Vaccine (2 of 2 - PCV) [facility] Comment on above: Postponed from 07/28/2020 (Declined at t his time) Start: 08-05-2025 Urine microalbumin profile DTaP,Tdap,Td Vaccine (2 - Td or Tdap) [facility] Comment on above: Postponed from 06/01/2023 (Declined at t his time) Start: 08-04-2025 End: 08-04-2025 Patient encounter procedure 08/04/2025 4:30 PM EDT Office Visit Neurology [address] [facility] [place] [address] Fatuma Beckford PA-C [address] [facility] [place] [address] botox Neurology Comment on above: botox Start: 08-03-2025 End: 08-03-2025 Patient encounter procedure 08/03/2025 2:20 PM EDT Office Visit OB/Gynecology [address] [place] [address] Galina Camacho MD [address] [place] [address] annual with pap OB/Gynecology Comment on above: annual with pap Start: 07-31-2025 Hemoglobin A1c measurement HbA1C [facility] Start: 07-19-2025 End: 07-19-2025 Patient encounter procedure 07/19/2025 11:00 AM EDT Office Visit [facility] [place] [address] [place] [address] Ivette Grimes MD [address] [facility] [place] [address] 07-07 ICU Hospital follow up [facility] Comment on above: 07-07 ICU Hospital follow up [facility] Start: 07-08-2025 End: 10-07-2025 Microalbumin/Creatinine [Mass Ratio] in Urine ALBUMIN/CREATININE RATIO, URINE Lab Routine Type 2 diabetes mellitus with microalbuminuria, with long-term current use of insulin (HCC) Expected: 07/08/2025, Expires: 10/07/2025 [facility] Comment on above: Expected: 07/08/2025, Expires: Start: 07-07-2025 Patient discharge [facility] Start: 07-07-2025 Care planning and problem solving actions [facility] Start: 07-06-2025 [facility] Start: 07-06-2025 Serum inorganic phosphate measurement [facility] Start: 07-06-2025 Application of intermittent pneumatic compression device [facility] Start: 07-05-2025 Following clinical pathway protocol [facility] Start: 07-05-2025 Assessment of risk of venous thromboembolism [facility] Start: 07-05-2025 Care regimes management [facility] Start: 07-05-2025 Consultation [facility] Start: 07-05-2025 Continuous pulse oximetry [facility] Start: 07-05-2025 Elevation of head of bed [facility] Start: 07-05-2025 Fall prevention [facility] Start: 07-05-2025 Incentive spirometry [facility] Start: 07-05-2025 Inhalation therapy procedure [facility] Start: 07-05-2025 Insertion of catheter into peripheral vein [facility] Start: 07-05-2025 Introduction of urinary catheter [facility] Start: 07-05-2025 Lab findings surveillance [facility] Start: 07-05-2025 Measuring intake and output [facility] Start: 07-05-2025 Methicillin resistant Staphylococcus aureus screening test [facility] Start: 07-05-2025 Nil by mouth [facility] Start: 07-05-2025 Notification of physician [facility] Start: 07-05-2025 Oxygen therapy [facility] Start: 07-05-2025 Patient referral to dietitian [facility] Start: 07-05-2025 Providing care according to standard [facility] Start: 07-05-2025 Provision of activity privileges [facility] Start: 07-05-2025 Referral to service [facility] Start: 07-05-2025 Vital signs measurements [facility] Start: 07-05-2025 End: 07-05-2025 [facility] Start: 07-05-2025 Dual pressure spontaneous ventilation support [facility] Start: 07-05-2025 Measurement of occult blood in stool specimen using immunoassay [facility] Start: 07-05-2025 Verification routine [facility] Start: 07-05-2025 Admission procedure [facility] Start: 07-05-2025 [facility] Start: 07-05-2025 End: 07-06-2025 [facility] Start: 07-05-2025 Bacteria identified in Blood by Culture Blood Culture [facility] Start: 07-05-2025 Bacteria identified in Urine by Culture Urine Culture [facility] Start: 07-05-2025 Blood culture Blood Culture [facility] Start: 07-05-2025 Influenza vaccination Influenza Vaccine (#1) [facility] Start: 07-05-2025 End: 10-04-2025 Urinalysis complete panel - Urine URINALYSIS, WITH MICROSCOPIC Lab Routine Flank pain Proteinuria, unspecified type Expected: 07/05/2025, Expires: 10/04/2025 [facility] Comment on above: Expected: 07/05/2025, Expires: Start: 07-04-2025 Hepatitis B screening Urine Albumin:Creatinine Ratio [facility] Start: 07-04-2025 Hepatitis B surface antibody level LDL Cholesterol [facility] Start: 07-03-2025 Annual PCP Team Chronic Disease Visit Annual PCP Team Chronic Disease Visit [facility] Start: 06-23-2025 Anes arthrs humeral h/n strnclav & shoulder nos [facility] Start: 06-23-2025 Anterior decompression of shoulder joint [facility] Start: 06-23-2025 Arthroscopy shoulder surg debridement limited [facility] Start: 06-23-2025 Arthroscopy shoulder w/coracoacrm ligmnt release BRY ARTHRS SRG DECOMPRESSION [facility] Start: 06-23-2025 Injection aa&/strd brachial plexus [facility] Start: 06-23-2025 Patient discharge [facility] Start: 06-23-2025 Application of ice collar, cap or bag [facility] Start: 06-23-2025 Assessment of risk of venous thromboembolism [facility] Start: 06-23-2025 Catheterization of vein [facility] Start: 06-23-2025 Continuous positive airway pressure ventilation treatment [facility] Start: 06-23-2025 Following clinical pathway protocol [facility] Start: 06-23-2025 Incentive spirometry [facility] Start: 06-23-2025 Introduction of urinary catheter [facility] Start: 06-23-2025 Vital signs measurements [facility] Start: 06-23-2025 [facility] Start: 06-10-2025 Electrocardiographic procedure [facility] Start: 06-07-2025 End: 09-06-2025 Cholesterol in LDL [Mass/volume] in Serum or Plasma LDL CHOLESTEROL DIR Lab Routine Type 2 diabetes mellitus with microalbuminuria, with long-term current use of insulin (HCC) Essential (primary) hypertension Expected: 06/07/2025, Expires: 09/06/2025 [facility] Comment on above: Expected: 06/07/2025, Expires: Start: 06-07-2025 End: 09-06-2025 Hemoglobin A1c in Blood HEMOGLOBIN A1C Lab Routine Type 2 diabetes mellitus with microalbuminuria, with long-term current use of insulin (HCC) Expected: 06/07/2025, Expires: 09/06/2025 [facility] Work Phone: Comment on above: Expected: 06/07/2025, Expires: Start: 06-03-2025 Annual PCP Team Chronic Disease Visit Annual PCP Team Chronic Disease Visit [facility] Start: 05-03-2025 Influenza vaccination Influenza Vaccine (#1) [facility] Comment on above: Postponed from 07/05/2024 (Declined at t his time) Start: 04-21-2025 End: 04-21-2025 Patient encounter procedure 04/21/2025 2:00 PM EDT Office Visit Neurology [address] [place] [address] Kristen Enriquez APRN.TERRITORY SALES PROFESSIONAL [address] [place] [address] botox Neurology Comment on above: botox Start: 03-09-2025 End: 03-09-2025 Patient encounter procedure 03/09/2025 7:25 AM EDT [facility] Neurology [address] [place] [address] Amanda Arteaga, PA-C [address] [place] [address] consult botox injection for headache Neurology Comment on above: consult botox injection for headache Start: 01-22-2025 End: 04-23-2025 Basic metabolic 2000 panel - Serum or Plasma BASIC METABOLIC PANEL Lab Routine Essential (primary) hypertension Expected: 01/22/2025, Expires: 04/23/2025 [facility] Comment on above: Expected: 01/22/2025, Expires: Start: 01-22-2025 End: 04-23-2025 Hemoglobin A1c in Blood HEMOGLOBIN A1C Lab Routine Type 2 diabetes mellitus with microalbuminuria, with long-term current use of insulin (HCC) Expected: 01/22/2025, Expires: 04/23/2025 [facility] Work Phone: Comment on above: Expected: 01/22/2025, Expires: Start: 01-01-2025 Hemoglobin A1c measurement HbA1C [facility] Start: 12-26-2024 BP Controlled (<130/80) BP Controlled (<130/80) [facility] Start: 12-25-2024 End: 12-25-2024 Patient encounter procedure 12/25/2024 10:15 AM EST Office Visit OB/Gynecology [address] [place], [place] [id number] Karol Mancera APRN.TERRITORY SALES PROFESSIONAL [address] [place], [place] [address] annual OB/Gynecology Comment on above: annual Start: 12-17-2024 End: 12-17-2024 ambulatory 12/17/2024 9:40 AM EST [facility] Medicine [facility] [address] [place], [place] [id number] Ivette Grimes MD [address] [place], [place] [id number] General [facility] Medicine [facility] Comment on above: General Start: 12-11-2024 End: 03-12-2025 Comprehensive metabolic 2000 panel - Serum or Plasma COMPREHENSIVE METABOLIC PANEL Lab Routine Hypokalemia Expected: 12/11/2024, Expires: 03/12/2025 [facility] Comment on above: Expected: 12/11/2024, Expires: Start: 12-09-2024 End: 12-09-2024 Patient encounter procedure 12/09/2024 2:20 PM EST Office Visit OB/Gynecology [address] [place] [id number] Galina Camacho MD [address] [place] [id number] Check up OB/Gynecology Comment on above: Check up Start: 12-09-2024 Annual PCP Team Chronic Disease Visit Annual PCP Team Chronic Disease Visit [facility] Start: 12-09-2024 BP Controlled (<130/80) BP Controlled (<130/80) [facility] Start: 12-09-2024 Covid-19 Vaccine () Covid-19 Vaccine () [facility] Comment on above: Postponed from 07/05/2023 (Declined at t his time) Start: 12-09-2024 Depression Screening Depression Screening [facility] Start: 11-11-2024 [facility] Start: 11-06-2024 Annual PCP Team Chronic Disease Visit Annual PCP Team Chronic Disease Visit [facility] Start: 10-20-2024 End: 10-20-2024 Patient encounter procedure 10/20/2024 2:20 PM EST Office Visit OB/Gynecology [address] [place] [id number] Galina Camacho MD [address] [place] [id number] Check up OB/Gynecology Comment on above: Check up Start: 09-13-2024 BP Controlled (<130/80) BP Controlled (<130/80) [facility] Start: 09-12-2024 Glaucoma screening Dilated Retinal Exam [facility] Start: 09-10-2024 End: 09-10-2024 Patient encounter procedure Neurology Comment on above: botox Start: 09-03-2024 End: 09-03-2024 Patient encounter procedure 09/03/2024 1:00 PM EDT Office Visit Neurology [address] [place] [address] [place] [id number] Fatuma Beckford PA-C [address] [facility] [place] [place] [address] botox Neurology Comment on above: botox Start: 08-05-2024 Depression Screening Depression Screening [facility] Comment on above: Postponed from 2000 (Declined at t his time) Start: 08-05-2024 End: 08-05-2024 Patient encounter procedure 08/05/2024 8:00 AM EDT Office Visit Family Medicine [place] [address] [place], [place] [address] Ivette Grimes MD [address] [place], [place] [id number] My health [facility] [place] Comment on above: My health Start: 07-15-2024 Annual PCP Team Chronic Disease Visit Annual PCP Team Chronic Disease Visit [facility] Start: 07-05-2024 Covid-19 Vaccine ( season) Covid-19 Vaccine ( season) [facility] Start: 07-05-2024 Covid-19 Vaccine ( season) Covid-19 Vaccine ( season) [facility] Start: 07-05-2024 Influenza vaccination Influenza Vaccine (#1) [facility] Start: 07-03-2024 End: 10-02-2024 CBC W Auto Differential panel - Blood COMPLETE BLOOD COUNT AND DIFFERENTIAL Lab Routine Type 2 diabetes mellitus with microalbuminuria, with long-term current use of insulin (HCC) Expected: 07/03/2024, Expires: 10/02/2024 [facility] Work Phone: Comment on above: Expected: 07/03/2024, Expires: Start: 07-03-2024 End: 10-02-2024 Comprehensive metabolic 2000 panel - Serum or Plasma COMPREHENSIVE METABOLIC PANEL Lab Routine Type 2 diabetes mellitus with microalbuminuria, with long-term current use of insulin (HCC) Expected: 07/03/2024, Expires: 10/02/2024 [facility] Comment on above: Expected: 07/03/2024, Expires: Start: 07-03-2024 End: 10-02-2024 Hemoglobin A1c in Blood HEMOGLOBIN A1C Lab Routine Type 2 diabetes mellitus with microalbuminuria, with long-term current use of insulin (HCC) Expected: 07/03/2024, Expires: 10/02/2024 [facility] Comment on above: Expected: 07/03/2024, Expires: 4 Start: 07-03-2024 End: 10-02-2024 Lipid 1996 panel - Serum or Plasma LIPID PANEL BASIC Lab Routine Type 2 diabetes mellitus with microalbuminuria, with long-term current use of insulin (HCC) Expected: 07/03/2024, Expires: 10/02/2024 [facility] Comment on above: Expected: 07/03/2024, Expires: 4 Start: 07-03-2024 End: 10-02-2024 Microalbumin/Creatinine [Mass Ratio] in Urine ALBUMIN/CREATININE RATIO, URINE Lab Routine Type 2 diabetes mellitus with microalbuminuria, with long-term current use of insulin (HCC) Expected: 07/03/2024, Expires: 10/02/2024 [facility] Comment on above: Expected: 07/03/2024, Expires: Start: 06-06-2024 ANNUAL PCP TEAM CHRONIC DISEASE VISIT ANNUAL PCP TEAM CHRONIC DISEASE VISIT [facility] Start: 06-06-2024 COVID-19 VACCINE (4 - Moderna series) COVID-19 VACCINE (4 - Moderna series) [facility] Comment on above: Postponed from 12/13/2021 (Declined at t his time) Start: 06-06-2024 Diabetic foot examination Diabetic Foot Exam [facility] Start: 06-06-2024 Urine microalbumin profile [facility] timmy Comment on above: Postponed from 06/01/2023 (Declined at t his time) Start: 06-05-2024 Hemoglobin A1c measurement HbA1C [facility] timmy Start: 05-17-2024 BP CONTROLLED (<130/80) BP CONTROLLED (<130/80) [facility] inic Start: 03-26-2024 End: 03-26-2024 Patient encounter procedure 03/26/2024 10:30 AM EDT Office Visit Neurology [address] [facility] [place] [address] Fatuma Beckford PA-C [address] [place] [address] botox 4 of 4 Neurology Comment on above: botox 4 of 4 Start: 03-05-2024 BP CONTROLLED (<130/80) BP CONTROLLED (<130/80) [facility] Start: 03-05-2024 PNEUMOCOCCAL (2 - PCV) PNEUMOCOCCAL (2 - PCV) [facility] Comment on above: Postponed from 07/28/2020 (Declined at t his time) Start: 03-05-2024 Pneumococcal vaccination [facility] Comment on above: Postponed from 07/28/2020 (Declined at t his time) Start: 03-04-2024 Hepatitis B screening URINE ALBUMIN:CREATININE RATIO [facility] Start: 02-29-2024 ANNUAL PCP TEAM CHRONIC DISEASE VISIT ANNUAL PCP TEAM CHRONIC DISEASE VISIT [facility] Start: 02-04-2024 Bacteria identified in Urine by Culture [facility] Start: 02-04-2024 [facility] Start: 02-04-2024 [facility] Start: 02-01-2024 ANNUAL PCP TEAM CHRONIC DISEASE VISIT ANNUAL PCP TEAM CHRONIC DISEASE VISIT [facility] Start: 01-18-2024 ANNUAL PCP TEAM CHRONIC DISEASE VISIT ANNUAL PCP TEAM CHRONIC DISEASE VISIT [facility] Start: 01-05-2024 ANNUAL PCP TEAM CHRONIC DISEASE VISIT ANNUAL PCP TEAM CHRONIC DISEASE VISIT [facility] Start: 12-26-2023 ANNUAL PCP TEAM CHRONIC DISEASE VISIT ANNUAL PCP TEAM CHRONIC DISEASE VISIT [facility] Start: 12-18-2023 HPV TESTING HPV TESTING [facility] Start: 12-18-2023 PAP TESTING PAP TESTING [facility] Start: 12-18-2023 Screening for malignant neoplasm of cervix [facility] Start: 12-14-2023 ANNUAL PCP TEAM CHRONIC DISEASE VISIT ANNUAL PCP TEAM CHRONIC DISEASE VISIT [facility] Start: 12-07-2023 ANNUAL PCP TEAM CHRONIC DISEASE VISIT ANNUAL PCP TEAM CHRONIC DISEASE VISIT [facility] Start: 12-07-2023 End: 02-06-2024 CBC W Auto Differential panel - Blood CBC + DIFF Lab Routine Type 2 diabetes mellitus with microalbuminuria, with long-term current use of insulin (HCC) Expected: 12/07/2023, Expires: 02/06/2024 [facility] Work Phone: Comment on above: Expected: 12/07/2023, Expires: Start: 12-07-2023 End: 02-06-2024 Comprehensive metabolic 2000 panel - Serum or Plasma COMP METABOLIC PANEL Lab Routine Type 2 diabetes mellitus with microalbuminuria, with long-term current use of insulin (HCC) Expected: 12/07/2023, Expires: 02/06/2024 [facility] Work Phone: Comment on above: Expected: 12/07/2023, Expires: Start: 12-07-2023 End: 02-06-2024 Hemoglobin A1c in Blood HGB A1C Lab Routine Type 2 diabetes mellitus with microalbuminuria, with long-term current use of insulin (HCC) Expected: 12/07/2023, Expires: 02/06/2024 [facility] Work Phone: Comment on above: Expected: 12/07/2023, Expires: Start: 12-07-2023 End: 02-06-2024 Lipid 1996 panel - Serum or Plasma LIPID PANEL BASIC Lab Routine Type 2 diabetes mellitus with microalbuminuria, with long-term current use of insulin (HCC) Expected: 12/07/2023, Expires: 02/06/2024 [facility] Work Phone: Comment on above: Expected: 12/07/2023, Expires: Start: 11-30-2023 ANNUAL PCP TEAM CHRONIC DISEASE VISIT ANNUAL PCP TEAM CHRONIC DISEASE VISIT [facility] Start: 11-27-2023 ANNUAL PCP TEAM CHRONIC DISEASE VISIT ANNUAL PCP TEAM CHRONIC DISEASE VISIT [facility] Start: 11-04-2023 Behavioral Health Screening Behavioral Health Screening [facility] Start: 11-04-2023 Depression Assessment Depression Assessment [facility] Start: 10-31-2023 BP CONTROLLED (<130/80) BP CONTROLLED (<130/80) [facility] Start: 10-27-2023 [facility] Start: 09-04-2023 ANNUAL PCP TEAM CHRONIC DISEASE VISIT ANNUAL PCP TEAM CHRONIC DISEASE VISIT [facility] Start: 09-04-2023 Hemoglobin A1c measurement HbA1C [facility] Start: 09-04-2023 Hemoglobin A1c/Hemoglobin.total in Blood HBA1C [facility] Start: 09-03-2023 ANNUAL PCP TEAM CHRONIC DISEASE VISIT ANNUAL PCP TEAM CHRONIC DISEASE VISIT [facility] Start: 08-10-2023 Mammography [facility] Start: 08-10-2023 Screening for malignant neoplasm of breast Mammogram Screening [facility] Start: 08-08-2023 Hepatitis B surface antibody level LDL CHOLESTEROL [facility] Start: 08-07-2023 Patient discharge [facility] Start: 08-06-2023 Telepractice consultation [facility] Start: 08-05-2023 End: 08-05-2023 [facility] Start: 08-05-2023 Following clinical pathway protocol [facility] Start: 08-05-2023 Assessment of risk of venous thromboembolism [facility] Start: 08-05-2023 Cardiac monitoring [facility] Start: 08-05-2023 Catheterization of vein [facility] Start: 08-05-2023 Continuous pulse oximetry [facility] Start: 08-05-2023 Elevation of head of bed [facility] Start: 08-05-2023 Exercises [facility] Start: 08-05-2023 Implementation of planned interventions [facility] Start: 08-05-2023 Insertion of catheter into peripheral vein [facility] Start: 08-05-2023 Measuring intake and output [facility] Start: 08-05-2023 Notification of physician [facility] Start: 08-05-2023 Oxygen therapy [facility] Start: 08-05-2023 Providing care according to standard [facility] Start: 08-05-2023 Referral to occupational therapist [facility] Start: 08-05-2023 Referral to service [facility] Start: 08-05-2023 Tobacco use cessation education [facility] Start: 08-05-2023 Vital signs measurements [facility] Start: 08-05-2023 Verification routine [facility] Start: 08-05-2023 Admission procedure [facility] Start: 08-05-2023 Oxygen therapy [facility] Start: 08-05-2023 [facility] Start: 08-05-2023 Inhalation therapy procedure [facility] Start: 08-05-2023 Patient referral to dietitian [facility] Start: 08-02-2023 3 comp foot exam completed DIABETIC FOOT EXAM [facility] Start: 08-02-2023 ANNUAL PCP TEAM CHRONIC DISEASE VISIT ANNUAL PCP TEAM CHRONIC DISEASE VISIT [facility] Start: 08-02-2023 Diabetic foot examination Diabetic Foot Exam [facility] Start: 07-05-2023 Covid-19 Vaccine () Covid-19 Vaccine () [facility] Start: 07-05-2023 Influenza vaccination [facility] Start: 06-07-2023 End: 08-07-2023 Cobalamin (Vitamin B12) [Mass/volume] in Serum or Plasma VITAMIN B12 BLOOD Lab Routine Memory loss Attention and concentration deficit Expected: 06/07/2023, Expires: 08/07/2023 [facility] Work Phone: Comment on above: Expected: 06/07/2023, Expires: 3 Start: 06-07-2023 End: 08-07-2023 Thyrotropin [Units/volume] in Serum or Plasma TSH BLD Lab Routine Memory loss Attention and concentration deficit Expected: 06/07/2023, Expires: 08/07/2023 [facility] Work Phone: Comment on above: Expected: 06/07/2023, Expires: Start: 06-07-2023 End: 08-07-2023 Thyroxine (T4) free [Mass/volume] in Serum or Plasma T4 FREE/FREE THYROX Lab Routine Memory loss Attention and concentration deficit Expected: 06/07/2023, Expires: 08/07/2023 [facility] Work Phone: Comment on above: Expected: 06/07/2023, Expires: 3 Start: 06-01-2023 Urine microalbumin profile [facility] Start: 05-01-2023 ANNUAL PCP TEAM CHRONIC DISEASE VISIT ANNUAL PCP TEAM CHRONIC DISEASE VISIT [facility] Start: 04-02-2023 [facility] Start: 03-29-2023 Adult depression screening assessment DEPRESSION SCREENING [facility] Start: 02-28-2023 End: 04-30-2023 ALBUMIN/CREAT RATIO RND UR ALBUMIN/CREAT RATIO RND UR Lab Routine Type 2 diabetes mellitus with microalbuminuria, with long-term current use of insulin (HCC) Expected: 02/28/2023, Expires: 04/30/2023 [facility] Work Phone: Comment on above: Expected: 02/28/2023, Expires: 3 Start: 02-28-2023 ANNUAL PCP TEAM CHRONIC DISEASE VISIT ANNUAL PCP TEAM CHRONIC DISEASE VISIT [facility] Start: 02-28-2023 End: 04-30-2023 Basic metabolic 2000 panel - Serum or Plasma BASIC METABOLIC PNL Lab Routine Myalgia Expected: 02/28/2023, Expires: 04/30/2023 [facility] Work Phone: Comment on above: Expected: 02/28/2023, Expires: 3 Start: 02-28-2023 End: 04-30-2023 CBC W Auto Differential panel - Blood CBC + DIFF Lab Routine Myalgia Expected: 02/28/2023, Expires: 04/30/2023 [facility] Work Phone: Comment on above: Expected: 02/28/2023, Expires: 3 Start: 02-28-2023 End: 04-30-2023 Hemoglobin A1c in Blood HGB A1C Lab Routine Type 2 diabetes mellitus with microalbuminuria, with long-term current use of insulin (HCC) Expected: 02/28/2023, Expires: 04/30/2023 [facility] Work Phone: Comment on above: Expected: 02/28/2023, Expires: 3 Start: 02-28-2023 End: 04-30-2023 Iron and Iron binding capacity panel - Serum or Plasma IRON + TIBC Lab Routine Myalgia Expected: 02/28/2023, Expires: 04/30/2023 [facility] Work Phone: Comment on above: Expected: 02/28/2023, Expires: 3 Start: 02-28-2023 End: 04-30-2023 Magnesium [Mass/volume] in Serum or Plasma MAGNESIUM BLD Lab Routine Myalgia Expected: 02/28/2023, Expires: 04/30/2023 [facility] Work Phone: Comment on above: Expected: 02/28/2023, Expires: 3 Start: 02-07-2023 Hepatitis B screening URINE ALBUMIN:CREATININE RATIO [facility] Start: 02-07-2023 Hepatitis B surface antibody level LDL CHOLESTEROL [facility] Start: 02-06-2023 Hemoglobin A1c/Hemoglobin.total in Blood HBA1C [facility] Start: 01-25-2023 ANNUAL PCP TEAM CHRONIC DISEASE VISIT ANNUAL PCP TEAM CHRONIC DISEASE VISIT [facility] Start: 11-04-2022 DEPRESSION ASSESSMENT DEPRESSION ASSESSMENT [facility] Start: 10-16-2022 End: 12-16-2022 Thyrotropin [Units/volume] in Serum or Plasma TSH BLD Lab Routine Lightheadedness Expected: 10/16/2022, Expires: 12/16/2022 [facility] Work Phone: Comment on above: Expected: 10/16/2022, Expires: 3 Start: 10-06-2022 Adult depression screening assessment DEPRESSION SCREENING [facility] Start: 10-05-2022 Glaucoma screening Dilated Retinal Exam [facility] Start: 10-05-2022 Hepatitis C antibody, confirmatory test DILATED RETINAL EXAM [facility] Start: 09-04-2022 End: 11-04-2022 Basic metabolic 2000 panel - Serum or Plasma BASIC METABOLIC PNL Lab Routine Lightheadedness Expected: 09/04/2022, Expires: 11/04/2022 [facility] Work Phone: Comment on above: Expected: 09/04/2022, Expires: 3 Start: 09-04-2022 End: 11-04-2022 CBC W Auto Differential panel - Blood CBC + DIFF Lab Routine Lightheadedness Expected: 09/04/2022, Expires: 11/04/2022 [facility] Work Phone: Comment on above: Expected: 09/04/2022, Expires: 3 Start: 08-16-2022 Patient referral [facility] Work Phone: Start: 08-09-2022 Hemoglobin A1c/Hemoglobin.total in Blood HBA1C [facility] Start: 08-02-2022 End: 10-02-2022 Hemoglobin A1c in Blood HGB A1C Lab Routine Type 2 diabetes mellitus with microalbuminuria, with long-term current use of insulin (HCC) Expected: 08/02/2022, Expires: 10/02/2022 [facility] Work Phone: Comment on above: Expected: 08/02/2022, Expires: 2 Start: 08-02-2022 End: 10-02-2022 Lipid 1996 panel - Serum or Plasma LIPID PANEL BASIC Lab Routine Type 2 diabetes mellitus with microalbuminuria, with long-term current use of insulin ([facility]) Expected: 08/02/2022, Expires: 10/02/2022 [facility] Work Phone: Comment on above: Expected: 08/02/2022, Expires: 2 Start: 08-02-2022 End: 10-02-2022 Thyrotropin [Units/volume] in Serum or Plasma TSH BLD Lab Routine Fatigue, unspecified type Expected: 08/02/2022, Expires: 10/02/2022 [facility] Work Phone: Comment on above: Expected: 08/02/2022, Expires: 2 Start: 07-20-2022 3 comp foot exam completed DIABETIC FOOT EXAM [facility] Start: 07-05-2022 Influenza vaccination INFLUENZA (#1) [facility] Start: 06-28-2022 Hepatitis B surface antibody level LDL CHOLESTEROL [facility] Start: 2022 Mammography MAMMOGRAM [facility] Start: 06-05-2022 End: 08-05-2022 Bacteria identified in Urine by Culture URINE CULTURE Microbiology Routine Proteinuria, unspecified type Leukocytosis, unspecified type Expected: 06/05/2022, Expires: 08/05/2022 [facility] Work Phone: Comment on above: Expected: 06/05/2022, Expires: 2 Start: 06-05-2022 End: 08-05-2022 Urinalysis complete panel - Urine URINALYSIS, WITH MICROSCOPIC Lab Routine Proteinuria, unspecified type Leukocytosis, unspecified type Expected: 06/05/2022, Expires: 08/05/2022 [facility] Work Phone: Comment on above: [...] Medication overuse headache Expected: 04/09/2022, Expires: 06/09/2022 [facility] Work Phone: Comment on above: [...] Medication overuse headache Expected: 04/09/2022, Expires: 06/09/2022 [facility] Work Phone: Comment on above: Expected: 04/09/2022, Expires: 2 Start: 12-26-2021 Patient referral [facility] Work Phone: Start: 12-13-2021 COVID-19 VACCINE (4 - Booster for Moderna series) COVID-19 VACCINE (4 - Booster for Moderna series) [facility] Start: 12-13-2021 COVID-19 VACCINE (4 - Moderna series) COVID-19 VACCINE (4 - Moderna series) [facility] Start: 11-04-2021 DEPRESSION ASSESSMENT DEPRESSION ASSESSMENT [facility] Start: 08-11-2021 Hepatitis B screening URINE ALBUMIN:CREATININE RATIO [facility] Start: 07-15-2021 Hemoglobin A1c/Hemoglobin.total in Blood HBA1C [facility] Start: 07-28-2020 PNEUMOCOCCAL (2 - PCV) PNEUMOCOCCAL (2 - PCV) [facility] Start: 07-28-2020 Pneumococcal vaccination Pneumococcal Vaccine (2 of 2 - PCV) [facility] Start: 09-24-2017 End: 09-24-2017 Appointment Appointment [facility] Work Phone: Start: 09-23-2017 End: 09-23-2017 Appointment Appointment [facility] Work Phone: Start: 09-17-2017 End: 09-17-2017 Appointment Appointment [facility] Work Phone: Start: 09-16-2017 End: 09-16-2017 Appointment Appointment [facility] Work Phone: Start: 09-12-2017 End: 09-12-2017 Appointment Appointment [facility] Work Phone: Start: 09-10-2017 End: 09-10-2017 Appointment Appointment [facility] Work Phone: Start: 09-09-2017 End: 09-09-2017 Appointment Appointment [facility] Work Phone: Start: 09-05-2017 End: 09-05-2017 Appointment Appointment [facility] Work Phone: [...] lumbar w/o contrast material MRI Lumbar Spine [facility] Work Phone: Start: 06-06-2017 End: 06-06-2017 Mri spinal canal lumbar w/o contrast material MRI Lumbar Spine [facility] Work Phone: Start: 05-10-2017 End: 05-10-2017 Radex spine lumbosacral minimum 4 views X-Ray, Spine, Lumbosacral 2-3 views [facility] Work Phone: Start: 05-09-2017 End: 05-09-2017 Physical Therapy General Physical Therapy [facility], [address] [place] [address], [id number] [facility] Work Phone: Start: 2001 HEPATITIS B (1 of 3 - Risk 3-dose series) HEPATITIS B (1 of 3 - Risk 3-dose series) [facility] Start: 2000 BP CONTROLLED (<130/80) BP CONTROLLED (<130/80) [facility] Start: 2000 Depression Screening Depression Screening [facility] Start: 1982 HEPATITIS B (1 of 3 - 3-dose series) HEPATITIS B (1 of 3 - 3-dose series) [facility] Alanine aminotransfe rase [Enzymatic activity/volume] in Serum or Plasma [facility] Albumin [Mass/volume ] in Serum or Plasma [facility] Alkaline phosphatase [Enzymatic activity/volume] in Serum or Plasma [facility] Anion gap in Serum or Plasma [facility] Bilirubin, total measurement [facility] BUN/Creatinine ratio [facility] Calcium [Mass/volume ] in Serum or Plasma [facility] Carbon dioxide, tota l [Moles/volume] in Central venous blood [facility] Chiropractic manipulation [facility] Creatinine [Mass/vol ume] in Serum or Plasma [facility] End: 03-29-2024 Ct soft tissue neck w/contrast material CT NECK SOFT TISSUE W IVCON Radiology Routine Soft tissue mass 1 Occurrences starting 02/28/2023 until 03/29/2024 [facility] Work Phone: Comment on above: 1 Occurrences starting 02/28/2023 until 03/29/2024 End: 12-17-2025 DBT Breast - bilateral screening FLASH SCREENING W JAQUELIN Radiology Routine Encounter for screening mammogram for breast cancer 1 Occurrences starting 11/17/2024 until 12/17/2025 [facility] Work Phone: Comment on above: 1 Occurrences starting 11/17/2024 until 12/17/2025 End: 07-07-2026 DBT Breast - bilateral screening FLASH SCREENING W [facility]QUELIN Radiology Routine Encounter for screening mammogram for breast cancer 1 Occurrences starting 06/07/2025 until 07/07/2026 [facility] Comment on above: 1 Occurrences starting 06/07/2025 until 07/07/2026 End: 09-04-2023 ECG COMPLETE ECG COMPLETE ECG Routine Prolonged Q-T interval on ECG 1 Occurrences starting 09/04/2022 until 09/04/2023 [facility] Work Phone: Comment on above: 1 Occurrences starting 09/04/2022 until 09/04/2023 End: 03-05-2024 EPIL EEG ROUTINE EPIL EEG ROUTINE NEUROLOGY Routine Altered awareness, transient 1 Occurrences starting 03/05/2023 until 03/05/2024 [facility] Work Phone: Comment on above: 1 Occurrences starting 03/05/2023 until 03/05/2024 Erythrocyte mean cor puscular volume determination [facility] Glucose [Mass/volume ] in Serum or Plasma [facility] Hematocrit [Volume F raction] of Blood [facility] Hemoglobin [Mass/vol ume] in Blood [facility] Hemoglobin A1c/Hemoglobin.total in Blood [facility] Hemoglobin A1c/Hemoglobin.total in Blood [facility] Injection aa&/strd suprascapular nerve INJECT NERV BLCK,SUPRASCAP N. Procedures Routine Adhesive capsulitis of left shoulder Primary osteoarthritis of left shoulder Ordered: 05/10/2022 [facility] Work Phone: Comment on above: Ordered: 05/10/2022 Iron [Mass/mass] in Unspecified specimen [facility] Iron saturation [Mas s Fraction] in Serum or Plasma [facility] Leukocytes [#/volume ] in Blood [facility] Magnesium [Mass/volu me] in Serum or Plasma [facility] Work Phone: Magnesium measurement [facility] End: 07-05-2024 FLASH SCREENING FLASH SCREENING Radiology Routine Encounter for screening mammogram for malignant neoplasm of breast 1 Occurrences starting 06/06/2023 until 07/05/2024 [facility] Work Phone: Comment on above: 1 Occurrences starting 06/06/2023 until 07/05/2024 End: 01-07-2025 FLASH SCREENING W JAQUELIN FLASH SCREENING W JAQUELIN Radiology Routine Encounter for screening mammogram for malignant neoplasm of breast 1 Occurrences starting 12/09/2023 until 01/07/2025 [facility] Work Phone: Comment on above: 1 Occurrences starting 12/09/2023 until 01/07/2025 Mean corpuscular hem oglobin concentration determination [facility] Mean corpuscular hem oglobin determination [facility] Measurement of renal function [facility] Methicillin resistan t Staphylococcus aureus (MRSA) DNA [Presence] in Nose by ALLYSON with probe detection [facility] MR Lower Extremity Joint [facility] End: 01-06-2024 Mri brain brain stem w/o contrast material MRI BRAIN WO IVC Radiology Routine Post concussion syndrome Intractable acute post-traumatic headache Dizziness Cervicalgia 1 Occurrences starting 12/07/2022 until 01/06/2024 [facility] Work Phone: Comment on above: 1 Occurrences starting 12/07/2022 until 01/06/2024 End: 01-06-2024 Mri spinal canal cervical w/o contrast matrl MRI CERVICAL SPINE WO IVCON Radiology Routine Post concussion syndrome Intractable acute post-traumatic headache Dizziness Cervicalgia 1 Occurrences starting 12/07/2022 until 01/06/2024 [facility] Work Phone: Comment on above: 1 Occurrences starting 12/07/2022 until 01/06/2024 Neutrophil count [facility] Neutrophil percent differential count [facility] Patient Education [facility] Work Phone: Patient referral [facility] Work Phone: Platelets [#/volume] in Blood [facility] Potassium measurement [facility] Red blood cell count [facility] Red cell distributio n width determination [facility] Serum chloride measurement [facility] Sodium measurement [facility] Total iron binding c apacity measurement [facility] Total protein measurement [facility] Urea nitrogen [Mass/ volume] in Serum or Plasma [facility] Urine culture [facility] End: 03-01-2024 US HEAD/NECK SOFT TISSUE OTHER US HEAD/NECK SOFT TISSUE OTHER Radiology Routine Soft tissue mass 1 Occurrences starting 01/31/2023 until 03/01/2024 [facility] Work Phone: Comment on above: 1 Occurrences starting 01/31/2023 until 03/01/2024 [facility] Work Phone: End: 08-20-2025 XR Chest PA and Lateral XR CHEST 2V FRONTAL/LAT Radiology Routine Cough, unspecified type 1 Occurrences starting 07/21/2024 until 08/20/2025 [facility] Work Phone: Comment on above: 1 Occurrences starting 07/21/2024 until 08/20/2025 End: 01-10-2026 XR Chest PA and Lateral XR CHEST 2V FRONTAL/LAT Radiology STAT Sinobronchitis 1 Occurrences starting 12/11/2024 until 01/10/2026 [facility] Work Phone: Comment on above: 1 Occurrences starting 12/11/2024 until 01/10/2026 End: 05-31-2023 XR RIBS/CHEST 3V AP RIB/OBLS/CXR LEFT XR RIBS/CHEST 3V AP RIB/OBLS/CXR LEFT Radiology Routine Rib pain 1 Occurrences starting 05/01/2022 until 05/31/2023 [facility] Work Phone: Comment on above: 1 Occurrences starting 05/01/2022 until 05/31/2023 [facility] [facility] Immunizations Immunization Date Immunization Notes Care Provider Fa [facility] 09-08-2024 influenza, seasonal, injectable, preservative free Dr. Ivette Grimes MD Work Phone: [facility] 09-08-2024 influenza virus vacc ine, unspecified formulation Ivette Grimes MD Work Phone: [facility] 09-23-2023 influenza virus vacc ine, unspecified formulation Ivette Grimes MD Work Phone: [facility] 09-19-2023 influenza, injectabl e, quadrivalent, preservative free Self Referred [facility] 08-06-2022 influenza, injectabl e, quadrivalent, preservative free Dr. Ivette Grimes Work Phone: [facility] 08-06-2022 influenza, seasonal, injectable Ivette Grimes MD Work Phone: [facility] 08-06-2022 influenza virus vacc ine, unspecified formulation Ivette Grimes MD Work Phone: [facility] 10-18-2021 Covid (Moderna) Dr. Ivette Grimes Work Phone: [facility] 08-01-2021 influenza virus vacc ine, unspecified formulation Elle Rasheed MD Work Phone: [facility] 08-01-2021 influenza, injectabl e, quadrivalent, preservative free Dr. Ivette Grimes Work Phone: [facility] 08-01-2021 influenza, seasonal, injectable Dr. Ivette Grimes Work Phone: [facility] 08-01-2021 influenza, seasonal, injectable, preservative free Ivette Grimes MD Work Phone: [facility] 11-29-2020 COVID-19 vaccine, fu ll dose (MODERNA) Elle Rasheed MD Work Phone: [facility] 11-01-2020 Covid (Moderna) Dr. Ivette Grimes Work Phone: [facility] 10-31-2020 COVID-19 vaccine, fu ll dose (MODERNA) Elle Rasheed MD Work Phone: [facility] 08-02-2020 influenza, injectabl e, quadrivalent, preservative free Dr. Ievtte Grimes Work Phone: [facility] 08-02-2020 influenza, seasonal, injectable Dr. Ivette Grimes Work Phone: [facility] 08-02-2020 influenza, seasonal, injectable, preservative free Ivette Grimes MD Work Phone: [facility] 08-01-2020 influenza virus vacc ine, unspecified formulation Elle Rasheed MD Work Phone: [facility] 07-30-2019 influenza, injectabl e, quadrivalent, contains preservative Ivette Grimes MD Work Phone: [facility] 07-30-2019 influenza, injectabl e, quadrivalent, preservative free Dr. Ivette Grimes Work Phone: [facility] 07-30-2019 influenza, seasonal, injectable Dr. Ivette Grimes Work Phone: [facility] 07-28-2019 pneumococcal polysaccharide vaccine, 23 valent Elle Rasheed MD Work Phone: [facility] 08-01-2018 influenza, injectabl e, quadrivalent, preservative free Dr. Ivette Grimes Work Phone: [facility] 08-01-2018 influenza, seasonal, injectable Dr. Ivette Grimes Work Phone: [facility] 08-07-2017 influenza, seasonal, injectable Elle Rasheed MD Work Phone: [facility] 07-31-2017 influenza, injectabl e, quadrivalent, preservative free Dr. Ivette Grimes Work Phone: [facility] 07-31-2017 influenza, seasonal, injectable Dr. Ivette Grimes Work Phone: [facility] 08-02-2016 influenza, injectabl e, quadrivalent, preservative free Dr. Ivette Grimes Work Phone: [facility] 08-02-2016 influenza, seasonal, injectable Dr. Ivette Grimes Work Phone: [facility] 07-09-2016 influenza, injectabl e, quadrivalent, contains preservative Elle Rasheed MD Work Phone: [facility] 03-05-2016 hepatitis B vaccine, pediatric or pediatric/adolescent dosage Elle Rasheed MD Work Phone: [facility] 03-05-2016 hepatitis B vaccine, unspecified formulation Elle Rasheed MD Work Phone: [facility] 07-25-2015 influenza, injectabl e, quadrivalent, contains preservative Ivette Grimes MD Work Phone: [facility] 07-25-2015 influenza, injectabl e, quadrivalent, preservative free Dr. Ivette Grimes Work Phone: [facility] 07-25-2015 influenza, seasonal, injectable Dr. Ivette Grimes Work Phone: [facility] 07-25-2015 varicella virus vaccine Cathy Rasheed MD Work Phone: [facility] 06-06-2015 hepatitis B vaccine, pediatric or pediatric/adolescent dosage Elle Rasheed MD Work Phone: [facility] 05-05-2015 hepatitis B vaccine, pediatric or pediatric/adolescent dosage Elle Rasheed MD Work Phone: [facility] 06-01-2013 tetanus toxoid, redu jamila diphtheria toxoid, and acellular pertussis vaccine, adsorbed Elle Rasheed MD Work Phone: [facility] 02-22-2009 human papilloma viru s vaccine, quadrivalent Elle Rasheed MD Work Phone: [facility] Work Phone: 09-27-2008 human papilloma viru s vaccine, quadrivalent Elle Rasheed MD Work Phone: [facility] Work Phone: 07-20-2008 human papilloma viru s vaccine, quadrivalent Elle Rasheed MD Work Phone: [facility] Work Phone: Payers Date Payer Category Payer Unknown [id number] 2024 Self-pay [id number] [phone] [id number] 2022 Government (not [facility] or Medicaid) [facility] Address: [address] [address] [id number] 2022 Private Health Insurance [id number] 2022 Unknown [id number] 2020 Unknown [id number]. [id number] 2019 Unknown [id number]. 1.13.159.2. [id number] 2015 Unknown [id number] Unknown [id number] Unknown [id number] 2.16.840.1.695877.3.579.2. 462 Unknown [id number] 2.16.840.1.089798.3.579.2. 462 Unknown [id number] 2.16.840.1.600095.3.579.2. 462 Unknown [id number] 2.16.840.1.432441.3.579.2. 462 Unknown [id number] 2.16840.1.937648.3.579.2. 462 Unknown [id number] 2.16840.1.813525.3.579.2. 462 Unknown [id number] 2.840.1.320496.3.579.2. 462 Unknown [id number] 2.840.1.604185.3.579.2. 462 Unknown [id number] 2.840.1.315131.3.579.2. 462 Unknown [id number] 2.840.1.998500.3.579.2. 462 Unknown [id number] 2.840.1.855569.3.579.2. 462 Unknown [id number] 2.840.1.662629.3.579.2. 462 Unknown [id number] 2.16840.1.178672.3.579.2. 462 Unknown [id number] 2.840.1.234660.3.579.2. 462 Unknown [id number] 2.16840.1.227351.3.579.2. 462 Unknown [id number] 2.16840.1.842616.3.579.2. 462 Unknown [id number] 2.16840.1.566757.3.579.2. 462 Unknown [id number] 2.16840.1.116266.3.579.2. 462 Unknown [id number] 2.16840.1.834180.3.579.2. 462 Unknown [id number] 2.16.840.1.392709.3.579.2. 462 Unknown [id number] 2.16840.1.109447.3.579.2. 462 Unknown [id number] 2.16.840.1.547431.3.579.2. 462 Unknown [id number] 2.16840.1.562228.3.579.2. 462 Unknown [id number] 2.840.1.608092.3.579.2. 462 Unknown [id number] 2.840.1.138319.3.579.2. 462 Unknown [id number] 2.840.1.972448.3.579.2. 462 Unknown [id number] 2.840.1.947311.3.579.2. 462 Unknown [id number] 2.840.1.028412.3.579.2. 462 Unknown [id number] 2.840.1.286843.3.579.2. 462 Unknown [id number] 2.840.1.933201.3.579.2. 462 Unknown [id number] 2.840.1.650919.3.579.2. 462 Unknown [id number] 2.840.1.533143.3.579.2. 462 Unknown [id number] 2.840.1.766554.3.579.2. 462 Unknown [id number] 2.840.1.478816.3.579.2. 462 Unknown [id number] 2.840.1.898585.3.579.2. 462 Unknown [id number] 2.840.1.688567.3.579.2. 462 Unknown [id number] 2.840.1.146683.3.579.2. 462 Unknown [id number] 2.840.1.475022.3.579.2. 462 Unknown [id number] 2.16.840.1.054453.3.579.2. 462 Social History Date Type Detail Facility Start: 03-14-2011 End: 07-05-2025 Tobacco smoking status NHIS Never smoked tobacco [facility] Start: 01-25-2022 End: 07-15-2025 Alcohol intake Current non-drinker of alcohol (finding) [facility] Start: 09-13-2020 End: 11-01-2022 History SDOH Alcohol Frequency 1 [facility] Start: 03-09-2020 History SDOH Social Connections Phone 5 [facility] Start: 03-09-2020 End: 11-01-2022 History SDOH Social Connections Get Together 2 [facility] Start: 03-09-2020 End: 11-01-2022 History SDOH Social Connections Nondenominational 3 [facility] Start: 03-09-2020 End: 11-01-2022 History SDOH Social Connections Living 7 [facility] Start: 09-13-2020 End: 11-01-2022 History SDOH Financial 4 [facility] Start: 08-15-2020 Education 16 [facility] Start: 1980 Sex Assigned At Female C [facility] Start: 01-19-2022 End: 01-22-2023 Exposure to SARS-CoV-2 (event) Not sure [facility] Start: 02-06-2022 End: 02-04-2024 Tobacco smoking status NHIS Unknown if ever smoked [facility] Start: 05-15-2020 None [facility] Start: 05-15-2020 Alone [facility] Start: 05-05-2020 Non-smoker [facility] Start: 03-14-2011 End: 07-19-2022 Tobacco use and exposure Smokeless tobacco non-user [facility] Work Phone: Start: 11-01-2022 History SDOH Alcohol Std Drinks 0 [facility] Start: 11-01-2022 End: 05-17-2023 History of Social function [facility] Start: 11-01-2022 End: 05-17-2023 Social connection and isolation panel [facility] Do you belong to any clubs or organizations such as yazidism groups, unions, fraternal or athletic groups, or school groups? No [facility] Are you now , , , , never or living with a partner? Never [facility] How often to you hav e a drink containing alcohol? Never [facility] Start: 10-05-2012 How many standard drinks containing alcohol do you have on a typical day? Patient does not drink [facility] How hard is it for y ou to pay for the very basics like food, housing, medical care, and heating Not very hard [facility] Do you feel stress - tense, restless, nervous, or anxious, or unable to sleep at night because your mind is troubled all the time - these days [OSQ] Only a little [facility] (I/We) worried wheth er (my/our) food would run out before (I/we) got money to buy more. Never true [facility] Start: 05-27-2020 Gender identity Identifies as female gender (finding) [facility] Start: 05-27-2020 Sexual orientation Heterosexual (fin glory) [facility] Do you belong to any clubs or organizations such as yazidism groups, unions, [employer] or athletic groups, or school groups? Yes [facility] Start: 02-02-2025 Sex Female (finding) [facility] NEGATED: Highlighted row [facility] Medical Equipment Procedure Code Equipment Code Equipment Origin al Text Equipment Identifier Dates [id number], [id number] Start: 07-22-2018 Comment on above: Test blood [...] Assessment Result Facility 07-07-2025 Functional status Ambulates [facility] Work Phone: 12-11-2024 Total score [AUDIT-C] 0 12/11/19 25 10:02 AM EST User, Katehellen [facility] 12-11-2024 Within the last year , have you been humiliated or emotionally abused in other ways by your partner or ex-partner? No 12/11/2024 10:02 AM EST User, [facility] 12-11-2024 Within the last year , have you been afraid of your partner or ex-partner? No 12/11/2024 10:02 AM EST User, [facility] 12-11-2024 Within the last year , have you been raped or forced to have any kind of sexual activity by your partner or ex-partner? No 12/11/2024 10:02 AM EST User, [facility] 12-11-2024 Within the last year , have you been kicked, hit, slapped, or otherwise physically hurt by your partner or ex-partner? No 12/11/2024 10:02 AM EST User, Mychart No [facility] 12-11-2024 How often to you hav e a drink containing alcohol? Never 12/11/2024 10:02 AM EST User, Mychart Never [facility] 12-11-2024 Functional status Patient does n ot drink 12/11/2024 10:02 AM EST User, [email or web address] Patient does not drink [facility] 12-11-2024 How often do you hav e 6 or more drinks on 1 occasion? Never 12/11/2024 10:02 AM Shankar Melchor Never [facility] 08-07-2023 Functional status Chair [facility] Work Phone: 10-22-2014 Are you deaf, or do you have serious difficulty hearing No 10/22/2014 10:49 AM Ashanti Mejia Ma [facility] 10-22-2014 Are you blind, or do you have serious difficulty seeing, even when wearing glasses No 10/22/2014 10:49 AM Ashanti Mejia Ma No [facility] 10-22-2014 Do you have serious difficulty walking or climbing stairs No 10/22/2014 10:49 AM Ashanti Mejia Ma No [facility] 10-22-2014 Do you have difficul ty dressing or bathing No 10/22/2014 10:49 AM Ashanti Mejia Ma No [facility] 10-22-2014 Because of a physica l, mental, or emotional condition, do you have difficulty doing errands alone such as visiting a physician's office or shopping No 10/22/2014 10:49 AM Ashanti Mejia Ma [facility] Mental Status Date Assessment Result Facility 07-07-2025 Cognitive function Voice/Name [facility] Work Phone: 06-23-2025 Cognitive function Voice/Name [facility] Work Phone: 11-11-2024 Cognitive function Voice/Name [facility] Work Phone: 02-04-2024 Cognitive function Level Of Cons ciousness Awake;Alert;Appropriate [facility] Work Phone: 08-07-2023 Cognitive function Voice/Name [facility] Work Phone: 08-05-2023 Cognitive function Level Of Cons ciousness Awake;Alert;Appropriate;Fol lows Commands [facility] Work Phone: 05-20-2023 Cognitive function Level Of Cons ciousness Awake;Alert;Appropriate [facility] Work Phone: 12-03-2022 Cognitive function Level Of Cons ciousness Awake;Alert;Appropriate;Fol lows Commands [facility] Work Phone: 11-27-2022 Cognitive function Level Of Cons ciousness Awake;Alert;Appropriate [facility] Work Phone: 10-22-2014 Because of a physica l, mental, or emotional condition, do you have serious difficulty concentrating, remembering, or making decisions No 10/22/2014 10:49 AM EST Masters Ashanti Ramirez [facility] Clinical Notes 12-06-2012 to 09-16-2025 Patient InstructionsSuLubna hernandez APRN.[facility] - 07/15/2025 9:33 AM EDTTelephone Encounter - Lubna De La Garza APRN.[facility] - 07/15/2025 9:24 AM EDLittle Saleh MA - 07/09/2025 8:01 AM EDT Note Date & Type Note Facility 09-16-2025 Note [facility] 08-04-2025 Note HNO ID: [id number] Author: FATUMA BECKFORD PA-C Service: ? Author Type: Physician Detective And Intelligence Analyst Type: Progress Notes Filed: 08/04/2025 17:00 Note [...] for migraine Informed Consent Consent Obtained: Written Wilmot Protocol A moment to CARE was completed [...] collected. Written Consent Obtained: Written LOT #: [id number] Expiration Date: Month: Year: 2026 Second vial: LOT #: [id number] Expiration Date: Month: Year: 2026 Injection Sites Left (Units) Left (Sites) Right (Units) Right (Sites) TOTAL (Units) Eligibility Worker 5 1 5 1 10 Procerus Units: [...] 2-3 weeks until stop. Fatuma Beckford PA-C [facility] 07-29-2025 Note HNO ID: [id number] Author: IVETTE GRIMES MD Service: ? Author [...] 1 tablet by mouth once daily. Ipratropium Kiln (ATROVENT) 21 mcg (0.03 %) nasal spray [...] 2 DM - Controlled E11.9 Insulin: No Nmxltrnp-Pf-Hxs-Fe-FA tab Take 1 tablet by mouth once [...] Age of Onset Alcohol/Drug Mother Heart Father [place] Cancer Father PANCREATIC CANCER Diabetes Father Coronary [...] maintenance issues tod (more content not included)... [facility] 07-15-2025 Instructions Lubna De La Garza APRN.CNP [...] ordered last month documented in this encounter [facility] 07-15-2025 Note HNO ID: [id number] Author: LUBNA DE LA GARZA APRN.CNP Service: ? Author Type: Nurse Practitioner Type: Progress Notes Filed: 07/15/2025 09:54 Note Text: This is a 45 year old female who presents today with: Patient presents with: Hospital F/U: [facility] DX Sepsis, UTI D/C 07/07 HISTORY OF PRESENT ILLNESS: Tori Gray is a 45 year old female. Patient presents with: Hospital F/U: [facility] DX Sepsis, UTI D/C 07/07 The patient [...] 1 tablet by mouth once daily. Ipratropium Kiln (ATROVENT) 21 mcg (0.03 %) nasal spray [...] 2 DM - Controlled E11.9 Insulin: No Lmomgykm-Vy-Zbm-Fe-FA tab Take 1 tablet by mouth once daily. No current facility-administered medications for this visit. FAMILY HISTORY Problem Relation Age of Onset Alcohol/Drug Mot (more content not included)... [facility] 07-15-2025 History of Presen t illness Narrative This is a 45 year old female who presents today with: Patient presents with: Hospital F/U: [facility] DX Sepsis, UTI D/C 07/07 HISTORY OF PRESENT ILLNESS: Tori Gray is a 45 year old female. Patient presents with: Hospital F/U: [facility] DX Sepsis, UTI D/C 07/07 The patient [...] 1 tablet by mouth once daily. Ipratropium Kiln (ATROVENT) 21 mcg (0.03 %) nasal spray [...] 2 DM - Controlled E11.9 Insulin: No Qxbxucyh-Rl-Sqo-Fe-FA tab Take 1 tablet by mouth once daily. No current facility-administered medications for this visit. FAMILY HISTORY Problem Relation Age of Onset Alcohol/Drug Mother Heart Father [place] Cancer Father PANCREATIC CANCER Diabetes Father Coronary [...] septic shock, unspecified acute renal failure type ([facility]) (A41.51) - Recent hospitalization for E. coli sepsis with acute renal failure; completed course of cefdinir. - No current urinary symptoms; infection likely related to recent shoulder surgery and catheterization. - finished antibiotic yesterday 2. Type 2 diabetes mellitus with microalbuminuria, with long-term current use of insulin ([facility]) (E11.29) 3. Microalbuminuria (R80.9) 4. Type 2 diabetes mellitus without complication, with long-term current use of insulin ([facility]) (E11.9) - Hyperglycemia during hospitalization (glucose 480 [...] Drug use: No documented in this encounter [facility] 07-15-2025 Telephone encounter Note Patient was seen at [facility] on August 03, 2025 for sepsis, complicated urinary tract infection. Patient presented to the emergency room with some confusion and found to have hyperosmolar nonketotic state as well as sepsis secondary to urinary tract infection in addition to acute kidney injury. She was seen by the greenhouse technician. Acute metabolic encephalopathy secondary to sepsis and [...] at bedtime Ozempic 2 mg weekly continued [facility] 07-15-2025 Miscellaneous Notes Patient was seen at [facility] on August 03, 2025 for sepsis, complicated urinary tract infection. Patient presented to the emergency room with some confusion and found to have hyperosmolar nonketotic state as well as sepsis secondary to urinary tract infection in addition to acute kidney injury. She was seen by the greenhouse technician. Acute metabolic encephalopathy secondary to sepsis and [...] mg weekly continued documented in this encounter [facility] 07-09-2025 Note HNO ID: [id number] Author: LUBNA DE LA GARZA APRN.CNP Service: ? Author Type: Nurse Practitioner Type: Progress Notes Filed: 07/09/2025 13:27 Note Text: Lisinopril renewed. [facility] 07-09-2025 History of Presen t illness Narrative Lisinopril renewed. TRANSITION CARE MANAGEMENT (TCM) INITIAL CONTACT House Parent Outreach Provider Action/FYI: Patient needs a refill of her lisinopril Initial contact with patient post discharge, spoke to patient. Patient identified by name and . TRANSITION CARE MANAGEMENT INITIAL OUTREACH DOCUMENTATION: 07/09/2025 07/09/2025 Date of Outreach: Outreach Attempt 1: Contact Made Date of Discharge 07/07/2025 SUMMARY: -Pt discharged from [facility] on 07/07/25. -Admitted for: Acute Sepsis, UTI [...] recent hospitalization: Epic documented in this encounter [facility] 07-09-2025 Note HNO ID: [id number] Author: LITTLE MURPHY MA Service: ? Author Type: House Parent Type: Progress Notes Filed: 07/09/2025 13:27 Note Text: TRANSITION CARE MANAGEMENT (TCM) INITIAL CONTACT House Parent Outreach Provider Action/FYI: Patient needs a refill of her lisinopril Initial contact with patient post discharge, spoke to patient. Patient identified by name and . TRANSITION CARE MANAGEMENT INITIAL OUTREACH DOCUMENTATION: 07/09/2025 07/09/2025 Date of Outreach: Outreach Attempt 1: Contact Made Date of Discharge 07/07/2025 SUMMARY: -Pt discharged from [facility] on 07/07/25. -Admitted for: Acute Sepsis, UTI [...] home? Yes Medical records from recent hospitalization: [facility] 07-09-2025 Note Patient Outreach (FA MPWS) TORI GRAY ([id number]) 1980 F Date Time Provider Department 07/09/25 LITTLE MURPHY During your visit today, we recorded the following information about you: Little Murphy MA 07/09/2025 1:27 PM Signed TRANSITION CARE MANAGEMENT (TCM) INITIAL CONTACT House Parent Outreach Provider Action/FYI: Patient needs a refill of her lisinopril Initial contact with patient post discharge, spoke to patient. Patient identified by name and . TRANSITION CARE MANAGEMENT INITIAL OUTREACH DOCUMENTATION: 07/09/2025 07/09/2025 Date of Outreach: Outreach Attempt 1: Contact Made Date of Discharge 07/07/2025 SUMMARY: -Pt discharged from [facility] on 07/07/25. -Admitted for: Acute Sepsis, UTI [...] for Visit: Transition Of Care [4074] Cmt: [facility] Discharge 07/07/25 Visit Diagnoses:Microalbuminuria [R80.9] Type 2 [...] tablet by mouth once daily. - Ipratropium Kiln (ATROVENT) 21 mcg (0.03 %) nasal spray [...] DM - Controlled E11.9 Insulin: No - Aisutxfc-Na-Eza-Fe-FA tab Take 1 tablet by mouth once daily. Meds Comments as of 03/01/2019: Percocet March 01, 2019 Stephanie Sruesh RN Problem List As Of Date 07/09/2025 Noted Resolved SUPERVIS NORMAL 1ST PREG [Z34.00] 11/09/2005 07/02/2006 TRANS HYPERTEN-ANTEPART [O13.9] 06/19/2006 07/02/2006 KERATOSIS PILARIS////SKIN ANOMALY NEC [Q82.8] 03/26/2007 01/23/2010 Other Acne [L70.8] 03/26/2007 FOLLICULITIS///HAIR DISEASES NEC [L67.8, L73.8] 03/26/2007 0 (more content not included)... [facility] 07-07-2025 Discharge summary Note Date/Time July 07, 2025 8:29am [facility] Medical Records Department [address] [place] [address] Discharge Summary 07/07/25 0816 MR#: [id number] Acct: [id number] Name: TORI GRAY Rep #:[id number] : 1980 45 From: Brittany Harrison MD PCP: Dr. Ivette Grimes MD Status:ADM I N Location: ICU CVICU 2-1 Providers Date of Admission: 07/05/25 Date of Discharge: 07/07/25 Primary Care Physician: Dr. Ivette Grimes MD Consultations 07/05/25 23:32 Consult: Tour Narrator / Pulmonary Medicine Routine Consulting Provider: Intensivists/Pulmonary [...] QWEEK 07/05/25 BIPAP -Bilevel Positive Airway Pressure ([facility] INFORMATIONAL USE ONLY) 07/06/25 CPAP - Continuous Positive Airway Pressure([facility] INFORMATIONAL USE ONLY) 07/06/25 cefdinir 300 mg [...] QWEEK (DME) BIPAP -Bilevel Positive Airway Pressure ([facility] INFORMATIONAL USE ONLY) Device See Rx Instructions .ROUTE Patient Comments: VAuto: IPAP=19.2 EPAP=12.4 PS=6.8 Rx Instructions: As directed (DME) CPAP - Continuous Positive Airway Pressure([facility] INFORMATIONAL USE ONLY) Device See Rx Instructions [...] Self Care Charges/Coding Visit Charges Inpatient E&M: 00795 Disch Hosp >30min 07/07/25 0829 <Electronically signed by Brittany Harrison MD> Cosigner Signature (if applicable): CC: Dr. Brittany Harrison MD; Dr. Ivette Grimes MD~ Signed [facility] Work Phone: 1(158) 653-181309-03-2025 Progress note Author Brittany Harrison [facility] Note Date/Time July 07, 2025 8:16am [facility] Medical Records Department [address] [place] [address] Progress Note - Hospitalist 07/07/25 0719 MR#: [id number] Acct: [id number] Name: ISAACTORI KELLY Rep #:[id number] : 1980 45 From: Brittany Harrison MD PCP: Dr. Ivette Grimes MD Status:ADM I N Location: ICU [place] [address] 2-1 Reason for Visit Chief Complaint: Altered [...] bilateral SCDs Charges/Coding Visit Charges Inpatient E&M: 25590 Subs Hosp L2 07/07/25 0816 <Electronically signed by Brittany Harrison MD> Cosigner Signature (if applicable): CC: ~ Signed [facility] Work Phone: 1(637) 368-263009-03-2025 Discharge summary [facility] Medical Records Department [address] [place] [address] Discharge Summary 07/07/25 0816 MR#: [id number] Acct: [id number] Name: TORI GRAY Rep #:[id number] : 1980 45 From: Brittany Harrison MD PCP: Dr. Ivette Grimes MD Status:ADM I N [facility] Providers Date of Admission: 07/05/25 Date of Discharge: 07/07/25 Primary Care Physician: Dr. Ivette Grimes MD Consultations 07/05/25 23:32 Consult: Tour Narrator / Pulmonary Medicine Routine Consulting Provider: Intensivists/Pulmonary [...] QWEEK 07/05/25 BIPAP -Bilevel Positive Airway Pressure ([facility] INFORMATIONAL USE ONLY) 07/06/25 CPAP - Continuous Positive Airway Pressure([facility] INFORMATIONAL USE ONLY) 07/06/25 cefdinir 300 mg [...] QWEEK (DME) BIPAP -Bilevel Positive Airway Pressure ([facility] INFORMATIONAL USE ONLY) Device See Rx Instructions .ROUTE Patient Comments: VAuto: IPAP=19.2 EPAP=12.4 PS=6.8 Rx Instructions: As directed (DME) CPAP - Continuous Positive Airway Pressure([facility] INFORMATIONAL USE ONLY) Device See Rx Instructions [...] Self Care Charges/Coding Visit Charges Inpatient E&M: 77820 Disch Hosp >30min 07/07/25 0829 Cosigner Signature (if applicable): CC: Dr. Brittany Harrison MD; Dr. Ivette Grimes MD~ Signed [facility]09-03-[facility] Progress note [facility] Medical Records Department [address] [place] [address] Progress Note - Hospitalist 07/07/25718 MR#: [id number] Acct: [id number] Name: TORI GRAY Rep #:[id number] : 1980 45 From: Brittany Harrison MD PCP: Dr. Ivette Grimes MD Status:ADM I N Location: ICU [place] [address] 2-1 Reason for Visit Chief Complaint: Altered [...] bilateral SCDs Charges/Coding Visit Charges Inpatient E&M: 22306 Subs Hosp L2 07/07/25 0816 Cosigner Signature (if applicable): CC: ~ Signed [facility]09-02-2025 Progress note Author Jose Juan Reinoso [facility] Note Date/Time July 06, 2025 11:32am [facility] Medical Records Department [address] [place] [address] Progress Note - Hospitalist 07/06/2551 MR#: [id number] Acct: [id number] Name: TORI GRAY Rep #:[id number] : 1980 45 From: Jose Juan petersen [...] 77.6 H, Lymph % (Auto) 14.4 L, [place] % (Auto) 5.8, Eos % (Auto) 0.9, [...] Sl. Cloudy, Urine pH 6.0, Ur Specific [place] 1.010, Urine Protein 30 H, Urine Glucose [...] 73.6 H, Lymph % (Auto) 16.7 L, [place] % (Auto) 6.6, Eos % (Auto) 1.4, [...] (MDRD) Non-Af 45 L, BUN/Creatinine Ratio 19.4, [id number] H, Hemoglobin A1c 7.6 H, Calcium 8.1, [...] consolidation or sizable pleural effusion. Reading Location: [id number] Abdomen/Pelvis CT 07/05/25 22:18 IMPRESSION: 1. A 10 mm stone at the left UPJ resulting in mild left hydronephrosis. 2. Mildly prominent reactive left para-aortic lymph nodes. Reading Location: [id number] Physical Exam Narrative General: Alert, Oriented x3, [...] DVT: SCDs Charges/Coding Visit Charges Inpatient E&M: 52978 Subs Hosp L2 07/06/25 1132 <Electronically signed by Jose Juan Reinoso MD> Cosigner Signature (if applicable): CC: ~ Signed [facility] Work Phone: 1(109) 371-472709-02-[address] [facility] Medical Records Department [address] [place] [address] Progress Note - Hospitalist 07/06/25950 MR#: [id number] Acct: [id number] Name: TORI GRAY Rep #:[id number] : 1980 45 From: Jose Juan petersen [...] 77.6 H, Lymph % (Auto) 14.4 L, [place] % (Auto) 5.8, Eos % (Auto) 0.9, [...] Sl. Cloudy, Urine pH 6.0, Ur Specific [place] 1.010, Urine Protein 30 H, Urine Glucose [...] 73.6 H, Lymph % (Auto) 16.7 L, [place] % (Auto) 6.6, Eos % (Auto) 1.4, [...] (MDRD) Non-Af 45 L, BUN/Creatinine Ratio 19.4, Ciztlqp222 H, Hemoglobin A1c 7.6 H, Calcium 8.1,Phosphorus [...] consolidation or sizable pleural effusion. Reading Location: [id number] Abdomen/Pelvis CT 07/05/25 22:18 IMPRESSION: 1. A 10 mm stone at the left UPJ resulting in mild left hydronephrosis. 2. Mildly prominent reactive left para-aortic lymph nodes. Reading Location: [id number] Physical Exam Narrative General: Alert, Oriented x3, [...] DVT: SCDs Charges/Coding Visit Charges Inpatient E&M: 21237 Subs Hosp L2 07/06/25 1132 Cosigner Signature (if applicable): CC: ~ Signed [facility]09-02-2025 Telephone encounter Note* Telephone Encounter - Little Murphy MA - 07/06/2025 10:17 AM EDT Patient is currently admitted to the [facility]. [facility]09-02-2025 Miscellaneous Notes* Telephone Encounter - Little Murphy MA - 07/06/2025 10:17 AM EDT Patient is currently admitted to the [facility]. [facility] History and physical note Author Shana Mendoza [facility] Note Date/Time July 06, 2025 1:39am [facility] Medical Records Department [address] [place] [address] H&P Exam - Hospitalist 07/05/252134 MR#: [id number] Acct: [id number] Name: TORI GRAY Rep #:[id number] : 1980 45 From: Shana Mendoza MD [...] debridement with arthroscopy who presents to the [facility] ED on 07/05/2025 with history of [...] at 150 mL/h, initiated on insulin drip. [facility] Medical History Impingement of left shoulder Diabetes [...] 77.6 H, Lymph % (Auto) 14.4 L, [place] % (Auto) 5.8, Eos % (Auto) 0.9, [...] Sl. Cloudy, Urine pH 6.0, Ur Specific [place] 1.010, Urine Protein 30 H, Urine Glucose [...] consolidation or sizable pleural effusion. Reading Location: [id number] Assessment & Plan Assessment/Plan (1) Sepsis: (2) Complicated urinary tract infection: PLAN: Plan The patient is a 45 y/o F w/ PMHx: Morbid obesity, Diabetes mellitus type II with chronic neuropathy, LETITIA on BIPAP q HS, HTN, Anxiety and Depression, GERD, Chronic migraines who presents to the [facility] ED on 07/05/2025 with history of [...] as noted. Charges/Coding Visit Charges Inpatient E&M: 00622 Init Hosp L3 07/05/255 <Electronically signed by Shana eMndoza MD> Cosigner Signature (if applicable): CC: Dr. [...] MD; Dr. Ivette Grimes MD ~* Signed [facility] Work Phone: 1(184) 451-578909-02-2025 Consult note Author Sabrina Kohler l [facility] Note Date/Time July 06, 2025 1:10am [facility] Medical Records Department [address] [place] [address] Consultation - Tour Narrator 07/06/25 0055 MR#: [id number] Acct: [id number] Name: TORI GRAY Rep #:[id number] : 1980 45 From: Sabrina arthur MD [...] are well heard Abd: Soft Extre:Trace edema LIMITED RADIOLOGY TECHNICIAN: Awake, alert . oriented Assessment/Plan # Hyperglycemia [...] 60 minutes Entire encounter done via Telemedicine [facility] Medical History Impingement of left shoulder Diabetes [...] mls @ 15 mls/hr 07/05/25 23:36 IV .[id number] PRN Saline Flush Sodium Chloride 250 mls @ 15 mls/hr 07/05/25 23:36 IV .[id number] PRN Additional IVPB Infusion Dextrose/Sodium Chloride 1,000 [...] 77.6 H, Lymph % (Auto) 14.4 L, [place] % (Auto) 5.8, Eos % (Auto) 0.9, [...] Sl. Cloudy, Urine pH 6.0, Ur Specific [place] 1.010, Urine Protein 30 H, Urine Glucose [...] consolidation or sizable pleural effusion. Reading Location: [id number] Abdomen/Pelvis CT 07/05/25 22:18 IMPRESSION: 1. A 10 mm stone at the left UPJ resulting in mild left hydronephrosis. 2. Mildly prominent reactive left para-aortic lymph nodes. Reading Location: [id number] Assessment and Plan . Assessment and plan: Critical Care Time: The entirety of this encounter was done via Telemedicine 07/06/25 0110 <Electronically signed by Sabrina Abdul MD> Cosigner Signature (if applicable): CC: Dr. Ivette Grimes MD~ Signed [facility] Work Phone: 1(998) 581-837709-02-[address] [facility] Medical Records Department [address] [place] [address] H&P Exam - Hospitalist 07/05/252134 MR#: [id number] Acct: [id number] Name: TORI GRAY Rep #:[id number] : 1980 45 From: Shana Mendoza MD [...] debridement with arthroscopy who presents to the [facility] ED on 07/05/2025 with history of [...] at 150 mL/h, initiated on insulin drip. [facility] Medical History Impingement of left shoulder Diabetes [...] 77.6 H, Lymph % (Auto) 14.4 L, [place] % (Auto) 5.8, Eos % (Auto) 0.9, [...] Sl. Cloudy, Urine pH 6.0, Ur Specific [place] 1.010, Urine Protein 30 H, Urine Glucose [...] consolidation or sizable pleural effusion. Reading Location: [id number]-[id number] Assessment & Plan Assessment/Plan (1) Sepsis: (2) Complicated urinary tract infection: PLAN: Plan The patient is a 45 y/o F w/ PMHx: Morbid obesity, Diabetes mellitus type II with chronic neuropathy, LETITIA on BIPAP q HS, HTN, Anxiety and Depression, GERD, Chronic migraines who presents to the [facility] ED on 07/05/2025 with history of [...] as noted. Charges/Coding Visit Charges Inpatient E&M: 85867 Init Hosp L3 07/05/255 Cosigner Signature (if [...] MD; Dr. Ivette Grimes MD ~* Signed [facility]09-02-[address] [facility] Medical Records Department [address] [place] [address] Consultation - Tour Narrator 07/06/2554 MR#: [id number] Acct: [id number] Name: TORI GRAY Rep #:[id number] : 1980 45 From: Sabrina arthur MD [...] are well heard Abd: Soft Extre:Trace edema LIMITED RADIOLOGY TECHNICIAN: Awake, alert . oriented Assessment/Plan # Hyperglycemia [...] 60 minutes Entire encounter done via Telemedicine [facility] Medical History Impingement of left shoulder Diabetes [...] mls @ 15 mls/hr 07/05/25 23:36 IV .[id number] PRN Saline Flush Sodium Chloride 250 mls @ 15 mls/hr 07/05/25 23:36 IV .Q09X14S PRN Additional IVPB Infusion Dextrose/Sodium Chloride 1,000 [...] 77.6 H, Lymph % (Auto) 14.4 L, [place] % (Auto) 5.8, Eos % (Auto) 0.9, [...] Sl. Cloudy, Urine pH 6.0, Ur Specific [place] 1.010, Urine Protein 30 H, Urine Glucose [...] consolidation or sizable pleural effusion. Reading Location: [id number] Abdomen/Pelvis CT 07/05/25 22:18 IMPRESSION: 1. A 10 mm stone at the left UPJ resulting in mild left hydronephrosis. 2. Mildly prominent reactive left para-aortic lymph nodes. Reading Location: [id number] Assessment and Plan . Assessment and plan: Critical Care Time: The entirety of this encounter was done via Telemedicine 07/06/25 0110 Cosigner Signature (if applicable): CC: Dr. Ivette Grimes MD~ Signed [facility]09-02-2025 Discharge summary Author Abhi [facility] Note Date/Time July 05, 2025 10:24pm [facility] Medical Records Department [address] [place] [address] Emergency Department Summary 07/05/25 MR#: [id number] Acct: [id number] Name: TORI GRAY Rep #:[id number] : 1980 45 From: Abhi Pina MD [...] 77.6 H Lymph % (Auto) 14.4 L [place] % (Auto) 5.8 Eos % (Auto) 0.9 [...] Sl. Cloudy Urine pH 6.0 Ur Specific [place] 1.010 Urine Protein 30 H Urine Glucose [...] (Auto) Neut % (Auto) Lymph % (Auto) [place] % (Auto) Eos % (Auto) Baso % [...] Color Urine Clarity Urine pH Ur Specific [place] Urine Protein Urine Glucose (UA) Urine Ketones [...] consolidation or sizable pleural effusion. Reading Location: [facility] EKG Initial EKG: Attestation: I personally reviewed and interpreted this EKG as follows: Interpretation: Sinus Rhythm (Rate is 75. Voltage is low. MD interval is138 ms. QS duration 94 ms per QT duration 384 ms. [place] is normal. There is nonseptic changes which [...] for DKA and sepsis.), Discussing w/Patient &/or Family/Fraud Representative, Discussing w/Consultants and Arranging Admission or Transfer Discharge Plan Dx/Rx/DC Orders Clinical Impression: Sepsis, LETITIA (obstructive sleep apnea), Complicated urinary tract infection, Acidosis, lactic, Acute kidney injury, Acute anemia, Acute hypotension, Adult BMI 45.0- 49.9 kg/sq m Disposition Disposition: Acute Care [facility] What to do if you have Problems For any increased pain, shortness of breath, bleeding, nausea or vomiting, chestpain, or any unexpected problems, contact your Primary Care Provider. Call [employer] [facility] ([phone]) or report to the closest Emergency Room. Call 911 if necessary. 07/05/252223 <Electronically signed by Abhi Pina MD> Cosigner Signature (if applicable): CC: Dr. Ivette Grimes MD ~ Signed [facility] Work Phone: 1(127) 717-793209-01-2025 Radiology Diagnostic study note [facility] Imaging Services [address] [place] [address] Abdomen/Pelvis without Cont MR#: [id number] Acct: [id number] Name: TORI GRAY Rep #: [id number] : 1980 F 45 From: Clark Morin MD PCP: Dr. Ivette Grimes MD Status: ADM I N Study:Abdomen/Pelvis without Cont Date of Exa m: 07/05/25 Exam# [id number] Ordering Dr: Savi Mendoza MD PROCEDURE: ABDOMEN/PELVIS [...] para-aortic lymph nodes. Reading Location: [id number] CC: Dr. Shana Mendoza MD; Dr. Ivette Grimes MD ~ Solution Lead: Signed [facility]09-01-2025 History and physical note Author Shana Reji [facility] Note Date/Time July 05, 2025 10:25pm [facility] Medical Records Department [address] [place] [address] H&P Exam - Hospitalist 07/05/252134 MR#: [id number] Acct: [id number] Name: TORI GRAY Rep #:[id number] : 1980 45 From: Shana Mendoza MD [...] debridement with arthroscopy who presents to the [facility] ED on 07/05/2025 with history of [...] at 150 mL/h, initiated on insulin drip. [facility] Medical History Impingement of left shoulder Diabetes [...] 77.6 H, Lymph % (Auto) 14.4 L, [place] % (Auto) 5.8, Eos % (Auto) 0.9, [...] Sl. Cloudy, Urine pH 6.0, Ur Specific [place] 1.010, Urine Protein 30 H, Urine Glucose [...] consolidation or sizable pleural effusion. Reading Location: [facility] Assessment & Plan Assessment/Plan (1) Sepsis: (2) Complicated urinary tract infection: PLAN: Plan The patient is a 45 y/o F w/ PMHx: Morbid obesity, Diabetes mellitus type II with chronic neuropathy, LETITIA on BIPAP q HS, HTN, Anxiety and Depression, GERD, Chronic migraines who presents to the [facility] ED on 07/05/2025 with history of [...] as noted. Charges/Coding Visit Charges Inpatient E&M: 53499 Init Hosp L3 07/05/252224 <Electronically signed by Shana Mendoza MD> Cosigner Signature (if applicable): CC: Dr. Shana Mendoza MD; Dr. Ivette Grimes MD~ Signed [facility] Work Phone: 1(132) 924-371709-01-2025 History and physical note [facility] Medical Records Department [address] [place] [address] H&P Exam - Hospitalist 07/05/252134 MR#: [id number] Acct: [id number] Name: TORI GRAY Rep #:[id number] : 1980 45 From: Shana Mendoza MD [...] debridement with arthroscopy who presents to the [facility] ED on 07/05/2025 with history of [...] at 150 mL/h, initiated on insulin drip. [facility] Medical History Impingement of left shoulder Diabetes [...] 77.6 H, Lymph % (Auto) 14.4 L, [place] % (Auto) 5.8, Eos % (Auto) 0.9, [...] Sl. Cloudy, Urine pH 6.0, Ur Specific [place] 1.010, Urine Protein 30 H, Urine Glucose [...] consolidation or sizable pleural effusion. Reading Location: [id number] Assessment & Plan Assessment/Plan (1) Sepsis: (2) Complicated urinary tract infection: PLAN: Plan The patient is a 45 y/o F w/ PMHx: Morbid obesity, Diabetes mellitus type II with chronic neuropathy, LETITIA on BIPAP q HS, HTN, Anxiety and Depression, GERD, Chronic migraines who presents to the [facility] ED on 07/05/2025 with history of [...] as noted. Charges/Coding Visit Charges Inpatient E&M: 18221 Init Hosp L3 07/05/25 0255 Cosigner Signature (if applicable): CC: Dr. Shana Mendoza MD; Dr. Ivette Grimes MD~ Signed [facility]09-01-[address] [facility] Medical Records Department [address] [place] [address] Emergency Department Summary 07/05/25 MR#: [id number] Acct: [id number] Name: TORI GRAY Rep #:[id number] : 1980 45 From: Abhi Pina MD [...] Prior similar symptoms: No Recent Illness/[facility] Medical History Impingement of left shoulder Diabetes [...] 77.6 H Lymph % (Auto) 14.4 L [place] % (Auto) 5.8 Eos % (Auto) 0.9 [...] Sl. Cloudy Urine pH 6.0 Ur Specific [place] 1.010 Urine Protein 30 H Urine Glucose [...] (Auto) Neut % (Auto) Lymph % (Auto) [place] % (Auto) Eos % (Auto) Baso % [...] Color Urine Clarity Urine pH Ur Specific [place] Urine Protein Urine Glucose (UA) Urine Ketones [...] consolidation or sizable pleural effusion. Reading Location: [facility] EK Initial EKG: Attestation: I personally reviewed and interpreted this EKG as follows: Interpretation: Sinus Rhythm (Rate is 75. Voltage is low. MD interval is138 ms. QS duration 94 ms per QT duration 384 ms. [place] is normal. There is nonseptic changes which [...] for DKA and sepsis.), Discussing w/Patient &/or Family/Fraud Representative, Discussing w /Consultants and Arranging Admission or Transfer Discharge Plan Dx/Rx/DC Orders Clinical Impression: Sepsis, LETITIA (obstructive sleep apnea), Complicated urinary tract infection, Acidosis, lactic, Acutekidney injury, Acute anemia, Acute hypotension, Adult BMI 45.0-49.9 kg/sq m Disposition Disposition: Acute Care Hospital [facility] What to do if you have Problems For any increased pain, shortness of breath, bleeding, nausea or vomiting, chestpain, or any unexpected problems, contact your Primary Care Provider. Call [employer] [facility] ([phone]) or report tothe closest Emergency Room. Call 911 if necessary. 07/05/25 3831 Cosigner Signature (if applicable): CC: Dr. Ivette Grimes MD ~ Signed [facility]09-01-2025 Radiology Diagnostic study note [facility] Imaging Services [address] [place] [address] Chest PA and Lateral MR#: [id number] Acct: [id number] Name: TORI GRAY Rep #: [id number] : 1980 F 45 From: Sheng Hankins MD PCP: Dr. Ivette Grimes MD Status: REG E R Study:Chest PA and Lateral Date of Exam: 07/05/25 Exam# [id number] Ordering Dr: Min Pina MD PROCEDURE: CHEST [...] consolidation or sizable pleural effusion. Reading Location: [facility] CC: Dr. Abhi Pina MD; Dr. Ivette Grimes MD ~ Solution Lead: Signed [facility]09-01-2025 Discharge summary Author Abhi Pina [facility] Note Date/Time July 05, 2025 10:24pm [facility] Medical Records Department [address] [place] [address] Emergency Department Summary 07/05/25 MR#: [id number] Acct: [id number] Name: TORI GRAY Rep #:[id number] : 1980 45 From: Abhi Pina MD [...] Prior similar symptoms: No Recent Illness/Hospitalization: No [facility] Medical History Impingement of left shoulder [...] 77.6 H Lymph % (Auto) 14.4 L [place] % (Auto) 5.8 Eos % (Auto) 0.9 [...] Sl. Cloudy Urine pH 6.0 Ur Specific [place] 1.010 Urine Protein 30 H Urine Glucose [...] (Auto) Neut % (Auto) Lymph % (Auto) [place] % (Auto) Eos % (Auto) Baso % [...] Color Urine Clarity Urine pH Ur Specific [place] Urine Protein Urine Glucose (UA) Urine Ketones [...] consolidation or sizable pleural effusion. Reading Location: [facility] EKG Initial EKG: Attestation: I personally reviewed and interpreted this EKG as follows: Interpretation: Sinus Rhythm (Rate is 75. Voltage is low. MD interval is138 ms. QS duration 94 ms per QT duration 384 ms. [place] is normal. There is nonseptic changes which [...] for DKA and sepsis.), Discussing w/Patient &/or Family/Fraud Representative, Discussing w/Consultants and Arranging Admission or Transfer Discharge Plan Dx/Rx/DC Orders Clinical Impression: Sepsis, LETITIA (obstructive sleep apnea), Complicated urinary tract infection, Acidosis, lactic, Acute kidney injury, Acute anemia, Acute hypotension, Adult BMI 45.0- 49.9 kg/sq m Disposition Disposition: Acute Care Hospital [facility] What to do if you have Problems For any increased pain, shortness of breath, bleeding, nausea or vomiting, chestpain, or any unexpected problems, contact your Primary Care Provider. Call [employer] [facility] ([phone]) or report to the closest Emergency Room. Call 911 if necessary. 07/05/252223 <Electronically signed by Abhi Pina MD> Cosigner Signature (if applicable): CC: Dr. Ivette Grimes MD ~ Signed [facility] Work Phone: 1(333) 193-624308-22-2025 Progress [facility] [address] [place] [address] [address] [place] [address] OFFICE VISIT Date of Service: 06/25/25 MR#: [id number] Acct: [id number] Name: TORI GRAY Rep #: [id number] : 1980 Provider: Dr. Killian Quiroga MD Age/Sex: 45/F Location[place] [facility] Status: Signed Intake Vital Signs 05/06/25 10:04 [...] Cosigner Signature: Date (if applicable) CC: ~ [facility]08-22-2025 Progress note Author Brett Quiroga [facility] Note Date/Time June 25, 2025 9: 35am [facility] [address] [place] [address] OFFICE VISIT Date of Service: 06/25/25 MR#: [id number] Acct: [id number] Name: TORI GRAY Rep #: [id number] : 1980 Provider: Dr. Killian Quiroga MD Age/Sex: 45/F [place] [facility] [place] Status: Signed Intake Vital Signs 05/06/25 10:04 [...] Cosigner Signature: Date (if applicable) CC: ~ [facility] Work Phone: 1(794) 509-564908-20-2025 Discharge summary Author Brett Quiroga [facility] Note Date/Time June 23, 2025 8: 39am [facility] Medical Records Department [address] [place] [address] Instructions for Home/Discharge Instructions 06/23/25 0836 MR#: [id number] Acct: [id number] Name: TORI GRAY Rep #:[id number] : 1980 45 From: Brett Quiroga MD [...] Patient Instructions: After Shoulder Arthroscopy Print Language: Georgian Discharge Orders/Prescriptions Prescriptions: New oxycodone-acetaminophen [Endocet] 5-325 [...] Woody Choudhary Referrals / Follow Up: Brett Quirgoa MD [Med Staff - Active Staff] - Ivette Grimes MD [Primary Care Provider] - Disposition Disposition (needs filled in before D/C Order can be placed): Home, Self Care 06/23/25 0839<Electronically signed by Brett Quiroga MD>Brett Quiroga MD CC: Dr. Ivette Grimes MD ~ Signed [facility] Work Phone: 1(271) 994-264308-20-2025 Consult note [facility] Medical Records Department [address] [place] [address] Pre-Anesthesia Evaluation 06/23/25 0739 MR#: [id number] Acct: [id number] Name: TORI GRAY Rep #:[id number] : 1980 45 From: Ankur ROJO PCP: Dr. Ivette Grimes MD Status:REG S DC Y Race: C Location: [place] [address]-1 ASA Classification* ASA Classification ASA Classification: 3 [...] DECOMPRESSION DEBRIDMENT Anesthesia History Anesthesia History - senior quality assurance analyst: Anesthesia History - senior quality assurance analyst Hx Hospitalization No 06/10/25 09:08 Any Problems [...] take am of surgery PONV PONV - senior quality assurance analyst: PONV - senior quality assurance analyst Female Yes 06/10/25 09:08 HX of Motion [...] 06/23/25 06:40 Respiratory Assessment Respiratory Assessment - senior quality assurance analyst: Respiratory Tract Infection Hx - senior quality assurance analyst Hx Respiratory Tract Infection No 06/10/25 09:08 STOP Sleep Apnea STOP Sleep Apnea - senior quality assurance analyst: STOP Sleep Apnea - senior quality assurance analyst Hx Hypertension No: LISINOPRIL FOR LIVER 06/10/25 [...] Tobacco Use History Tobacco Use History - senior quality assurance analyst: Tobacco Use History - senior quality assurance analyst Tobacco Use Non-smoker 03/09/25 09:20 Smoking Status Never smoker 06/10/25 09:08 Hx Tobacco Use No 06/10/25 09:08 Years Smoking Packs Smoked per Day Smoking Cessation Date was within the last 15 years Hx Smoking Cessation Date Hx Smoking Cessation Counseling Hematologic Medial History Hematologic Hx - senior quality assurance analyst: Hematologic Medical Hx - per diem nurse Hx of Blood Transfusion No 06/10/25 09:08 [...] confused, unrespo /Reproduction History /Reproductive History - senior quality assurance analyst: /Reproductive Hx- senior quality assurance analyst Hx Now No 06/10/25 09:08 Gestational Age [...] additional complaints, except as documented. 06/23/25 0739 [employer]> Date _ Ankur Templeton [employer] Cosigner Signature: Date CC: ~ Signed [facility]08-20-2025 Consult note Author Ankur Yokasta [facility] Note Date/Time June 23, 2025 10 :38am [facility] Medical Records Department [address] [place] [address] Pre-Anesthesia Evaluation 06/23/25 0739 MR#: [id number] Acct: [id number] Name: TORI GRAY Rep #:[id number] : 1980 45 From: Ankur ROJO PCP: Dr. Ivette Grimes MD Status:REG S DC Y Race: C Location: [place] [address] ASA Classification* ASA Classification ASA Classification: 3 [...] DECOMPRESSION DEBRIDMENT Anesthesia History Anesthesia History - senior quality assurance analyst: Anesthesia History - senior quality assurance analyst Hx Hospitalization No 06/10/25 09:08 Any Problems [...] take am of surgery PONV PONV - senior quality assurance analyst: PONV - senior quality assurance analyst Female Yes 06/10/25 09:08 HX of Motion [...] 06/23/25 06:40 Respiratory Assessment Respiratory Assessment - senior quality assurance analyst: Respiratory Tract Infection Hx - senior quality assurance analyst Hx Respiratory Tract Infection No 06/10/25 09:08 STOP Sleep Apnea STOP Sleep Apnea - senior quality assurance analyst: STOP Sleep Apnea - senior quality assurance analyst Hx Hypertension No: LISINOPRIL FOR LIVER 06/10/25 [...] Tobacco Use History Tobacco Use History - senior quality assurance analyst: Tobacco Use History - senior quality assurance analyst Tobacco Use Non-smoker 03/09/25 09:20 Smoking Status Never smoker 06/10/25 09:08 Hx Tobacco Use No 06/10/25 09:08 Years Smoking Packs Smoked per Day Smoking Cessation Date was within the last 15 years Hx Smoking Cessation Date Hx Smoking Cessation Counseling Hematologic Medial History Hematologic Hx - senior quality assurance analyst: Hematologic Medical Hx - per diem nurse Hx of Blood Transfusion No 06/10/25 09:08 [...] confused, unrespo /Reproduction History /Reproductive History - senior quality assurance analyst: /Reproductive Hx- senior quality assurance analyst Hx Now No 06/10/25 09:08 Gestational Age [...] CRNA Cosigner Signature: Date CC: ~ Signed [facility] Work Phone: 1(892) 297-719008-20-2025 History and physical note Author Brett Quiroga [facility] Note Date/Time June 23, 2025 7: 14am [facility] Medical Records Department [address] [place] [address] History & Physical Exam 06/23/25711 MR#: [id number] Acct: [id number] Name: TORI GRAY Rep #:[id number] : 1980 45 From: Brett Quiroga MD PCP: Dr. Ivette Grimes MD Status:REG S DC Location: [place] [address]1 HPI - General HPI Narrative TORI GRAY, is a 45 F who presents for left shoulder arthroscopy, subacromial decompression, debridement. no change to h and p. ok to proceed. rab, post op instructions, narcotic counselling. possible licodaine allergy, butafter discussion with anesthesia, the patient and the anesthesia provider have decided to proceed with a block. left shoulder marked. ok to proceed. MR#: [id number] Acct: [id number] Name: TORI GRAY Rep #: [id number] : 1980 Provider: Dr. 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 Supplemental Info [facility] Imaging Services [address] [place], [place] [address] Upper Ext Joint Only(Routine) MR#: [id number] Acct: [id number] Name: TORI GRAY Rep #: [id number] : 1980 F 44 From: Salazar Tyson MD PCP: Dr. Ivette Grimes MD Status: REG CLI Study: Upper Ext Joint Only(Routine) Date of Exam: 04/17/25 Exam# [id number] Ordering Dr: Brett Quiroga MD PROCEDURE: UPPER [...] (1) Left shoulder pain: Status: Inactive Plan: TOIR GRAY is a 44 year old [...] blood flow before exercises. 4. Anti-Inflammatory Medications: Ecge-pme-rigohzb medications like ibuprofen or naproxen can help [...] strength FE 4+, ER 5/5. [facility] Medical History Diabetes Fatty liver Gastric reflux [...] Quiroga MD; Dr. Ivette Grimes MD~ Signed [facility] Work Phone: 1([phone]) [phone] Consult note [facility] Medical Records Department [address] [place] [address] Anesthesia Postop Eval I 06/23/2557 MR#: [id number] Acct: [id number] Name: ISAACROSIEFOREIGNDinh KELLY Rep #:[id number] : 1980 45 From: Ankur ROJO PCP: Dr. Ivette Grimes MD Status:REG S DC Y Race: C Location: [place] [address] Anesthesia: Postop Eval I Current Vital Signs Temperature: 97.8 F Pulse Rate: 74 Blood Pressure: 114/70 Respiratory Rate: 16 Pulse Ox: 94 Assessment Airway patent: Yes Spontaneous unlabored respirations: Yes nausea: No Vomiting: No Anesthesia Complication: No Fluid Hydration Crystalloid volume administer (ml): 800 Total IV fluid infused: 800 Progress Note Anesthesia document: Postop Eval 1 completed: Yes 06/23/2558 [employer]> Date _ Ankur Templeton [employer] Cosigner Signature: Date CC: ~ Signed [facility]08-20-2025 Discharge summary [facility] Medical Records Department [address] [place] [address] Instructions for Home/Discharge Instructions 06/23/25 0836 MR#: [id number] Acct: [id number] Name: TORI GRAY Rep #:[id number] : 1980 45 From: Brett Quiroga MD [...] Patient Instructions: After Shoulder Arthroscopy Print Language: Georgian Discharge Orders/Prescriptions Prescriptions: New oxycodone-acetaminophen [Endocet] 5-325 [...] CC: Dr. Ivette Grimes MD ~ Signed [facility]08-20-2025 Procedure note [facility] Medical Records Department [address] [place] [address] Operative Report 06/23/25 0831 MR#: [id number] Acct: [id number] Name: TORI GRAY Rep #:[id number] : 1980 45 From: Brett Quiroga MD PCP: Dr. Ivette Grimes MD Status:REG S ND Location: [facility] 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 icing and glaze maker: Yes Batcher Operator: jamila Tasks completed by animal assisted therapist: Retracting Additional it assistant?: No Type of Anesthesia: Block,Regional and [...] home according to day surgery criteria. CPT 88462, 22209 Surgical Findings: As above Complications Complications: No Admit VTE Documentation VTE Present on Admission: No VTE Mechan Device Prophylaxis: SCD's VTE Pharm Prophylaxis ordered?: No Reason prophylaxis not ordered: Treatment Not Indicated 06/23/25 0836 Cosigner Signature (if applicable): CC: Dr. Brett Quiroga MD; Dr. Ivette Grimes MD~ Signed [facility]08-20-2025 History and physical note [facility] Medical Records Department [address] [place] [address] History & Physical Exam 06/23/25 0712 MR#: [id number] Acct: [id number] Name: TORI GRAY Rep #:[id number] : 1980 45 From: Brett Quiroga MD PCP: Dr. Ivette Grimes MD Status:REG S DC Location: [place] [address]1 HPI - General HPI Narrative TORI GRAY, is a 45 F who presents for left shoulder arthroscopy, subacromial decompression, debridement. no change to h and p. ok to proceed. rab, post op instructions, narcotic counselling. possible licodaine allergy, butafter discussion with anesthesia, the patient and the anesthesia provider have decided to proceed with a block. left shoulder marked. ok to proceed. MR#: [id number] Acct: [id number] Name: TORI GRAY Rep #: [id number] : 1980 Provider: Dr. Brett Quiroga MD Age/Sex: 44/F [place] [facility] [place] Status: Signed Intake Vital Signs 03/22/2509:08 05/06/2510:04 [...] made by me, Dr. Kassie MD 05/06/25 0934. Part of today?s visit was documented by [ ], acting as scribe. TORI GRAY is a 44 year old F here today for follow-up left shoulder MRI. Doing PT with [facility]. getting worse. cant do injections. seems to be getting worse, with ADLs as well. worse with lifting. lat and anterior pain. 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 Supplemental Info [facility] Imaging Services [address] [place], [place] [address] Upper Ext Joint Only(Routine) MR#: [id number] Acct: [id number] Name: TORI GRAY Rep #: [id number] : 1980 F 44 From: Salazar Tyson MD PCP: Dr. Ivette Grimes MD Status: REG CLI Study: Upper Ext Joint Only(Routine) Date of Exam: 04/17/25 Exam# [id number] Ordering Dr: Brett Quiroga MD PROCEDURE: UPPER [...] subacromial subdeltoid bursa, with bursitis. [facility] independently reviewed the imaging. Concur [...] blood flow before exercises. 4. Anti-Inflammatory Medications: Jlit-qmm-nyhdyaq medications like ibuprofen or naproxen can help [...] strength FE 4+, ER 5/5. [facility] Medical History Diabetes Fatty liver Gastric reflux [...] Quiroga MD; Dr. Ivette Grimes MD~ Signed [facility]08-20-2025 [facility]08-14-2025 Progress [facility] [address] [place] [address] OFFICE VISIT Date of Service: 06/17/25 MR#: [id number] Acct: [id number] Name: TORI GRAY Rep #: [id number] : 1980 Provider: CONCEPCIÓN Rehman Age/Sex: 45/F [place] [facility] [place]: Signed Intake Vital Signs 05/06/25 10:04 [...] mL) subcutaneous pen injector (Ozempic) [facility] Medical History Diabetes Fatty liver Gastric reflux [...] CPT Codes Procedures - Manipulation: 3-4 regions (97777) Procedures - Traction, Mechanical: Yes (11592) 06/17/25 1005 .C.> Date _ Bibiana Rehman D.C. Cosigner Signature: Date (if applicable) CC: ~ [facility]08-14-2025 Progress note Author Bibiana Rehman [facility] Note Date/Time June 17, 2025 10 :05am [facility] [address] [place] [address] OFFICE VISIT Date of Service: 06/17/25 MR#: [id number] Acct: [id number] Name: TORI GRAY Rep #: [id number] : 1980 Provider: CONCEPCIÓN Rehman Age/Sex: 45/F [place] [facility] Status: Signed Intake Vital Signs 05/06/25 [...] mL) subcutaneous pen injector (Ozempic) [facility] Medical History Diabetes Fatty liver Gastric reflux [...] CPT Codes Procedures - Manipulation: 3-4 regions (34540) Procedures - Traction, Mechanical: Yes (57151) 06/17/25 1005 <Electronically signed by Bibiana Aguilar> Date _ Bibiana Rehman D.C. Cosigner Signature: Date (if applicable) CC: ~ [facility] Work Phone: 1(390) [phone] Telephone encounter Note* Telephone Encounter - Little Murpyh MA - 06/10/2025 2:17 PM EDT LDL Direct scanned to chart [facility]08-07-2025 Miscellaneous Notes* Telephone Encounter - Little Murphy MA - 06/10/2025 2:17 PM EDT LDL Direct scanned to chart * Telephone Encounter - Nirmala Storey LPN - 06/09/2025 12:53 PM EDT [employer] message sent to the patient. * Telephone Encounter - Ivette Grimes MD - 06/09/2025 10:48 AM EDT Lets increase the ozempic to 2 mg a day. Call sugars in two weeks. Watch the diet. * Telephone Encounter - Nirmala Storey LPN - 06/09/2025 10:20 AM EDT HgbA1C from [facility] 7.4 documented in [facility] [place] Hospital Discharge instructionsAmbulatory Orders* 12 Lead EKG [[facility]] Time Frame: 06/10/25, Location: None Selected [facility] Work Phone: 1(497) 472-524908-06-2025 Telephone encounter Note* Telephone Encounter - Nirmala Storey LPN - 06/09/2025 12:53 PM EDT [employer] message sent to the patient. [facility]08-06-2025 Telephone encounter Note* Telephone Encounter - Ivette Grimes MD - 06/09/2025 10:48 AM EDT Lets increase the ozempic to 2 mg a day. Call sugars in two weeks. Watch the diet. [facility]08-06-2025 Telephone encounter Note* Telephone Encounter - Nirmala Storey LPN - 06/09/2025 10:20 AM EDT HgbA1C from [facility] 7.4 [facility]08-04-2025 NoteHNO ID: [id number] Author: IVETTE GRIMES MD Service: ? Author [...] for June [address] Quiroga at [facility]. - Follow-up appointment with Dr. Camacho for [...] 1 tablet by mouth once daily. Ipratropium Kiln (ATROVENT) 21 mcg (0.03 %) nasal spray [...] 1 Each by INTRAUTERINE route as directed. Lzvvkefs-Vz-Eyx-Fe-FA tab Take 1 tablet by mouth once [...] Age of Onset Alcohol/Drug Mother Heart Father NH Cancer Father PANCREATIC CANCER Diabetes Father Coronary Artery Disease Father Anxiety disorder Sister Depression Sister Depression Brother Cancer Maternal Grandmother LUNG CANCER Diabetes Maternal Grandfather Heart Paternal Grandmother TRIPLE BYPASS SURGERY S (more content not included)...[facility]08-04-2025 History of Present illness [...] for June [address] Quiroga at [facility]. - Follow-up appointment with Dr. Camacho for [...] 1 tablet by mouth once daily. Ipratropium Kiln (ATROVENT) 21 mcg (0.03 %) nasal spray [...] 1 Each by INTRAUTERINE route as directed. Ejkzvnis-Fk-Vfp-Fe-FA tab Take 1 tablet by mouth once [...] Age of Onset Alcohol/Drug Mother Heart Father NH Cancer Father PANCREATIC CANCER Diabetes Father Coronary [...] III, BMI 40-49.9 (morbid obesity) ([facility]) (E66.813) - Patient is physically active and maintains a balanced diet. 10. Headache, unspecified headache type (R51.9) - Migraines well-controlled; continues Topamax and gabapentin (reduced to once nightly). - Appointment scheduled for August 04 with Fatuma Cervantes to discuss resuming Botox treatment. 11. Encounter for screening mammogram for breast cancer (Z12.31) - Order for screening mammogram to be sent to [facility]. (See patient after visit summary for additional instructions to patient) Ivette Grimes MD Recording using [employer] software for draft documentation of the visit was discussed with the patient/authorized medical center representative; all questions welcomed and answered. Patient/authorized medical center representative agreed to proceed documented in [facility] encounter[facility] [place] Instructions* Patient Instructions* Ivette Grimes MD - [...] with Dr. Quiroga on June 23 at [facility]. - Keep your neurology appointment on [...] any new concerns arise. documented in [facility] [place] Evaluation note* Diagnosis Onset Date Resolution Status [...] left shoulder acute July 09, 2025 9:21am [facility] Work Phone: [phone]) 421-687706-18-2025 Evaluation note* Diagnosis Onset Date Resolution Status [...] left shoulder acute August 05, 2025 9:12am [facility] Work Phone: 1([phone]) 262-960806-04-2025 Telephone encounter Note* Telephone Encounter - Ivette Grimes MD - 04/07/2025 3:34 PM EDT Requests refill. [facility]06-04-2025 Miscellaneous Notes* Telephone Encounter - Ivette Grimes MD - 04/07/2025 3:34 PM EDT Requests refill. documented in [facility] encounter[facility] [place]2025 Telephone encounter Note * Telephone Encounter - Nakia Caraballo RN - 04/01/2025 12:45 PM EDT Botox approved until 11/03/25. Patient and scheduling made aware. She is a patient of Fatuma's butdue to her being out on maternity leave, patient will need scheduled with another FÉLIX. Saw Amanda on03/09/25. Latonia Caraballo RN, BSN [facility] Work Phone: [phone] Miscellaneous Notes* Telephone Encounter - Nakai Caraballo RN - 04/01/2025 12:45 PM EDT Botox approved until 11/03/25. Patient and scheduling made aware. She is a patient of Fatuma's butdue to her being out on maternity leave, patient will need scheduled with another FÉLIX. Saw Amanda on03/09/25. Latonia Caraballo RN, BSN documented in this encounterSelect [facility] [place] Evaluation note* Diagnosis Onset Date Resolution Status [...] left shoulder acute July 09, 2025 9:21am [facility] Work Phone: [phone]) 470-725405-16-2025 Telephone encounter Note* Telephone Encounter - Nakia Caraballo RN - 03/19/2025 3:14 PM EDT Botox referral sent to pharmacy as patient would like to restart botox. Last botox 09/03/24. Latonia Caraballo RN, BSN [facility] Work Phone: [phone]) [phone] Miscellaneous Notes* Telephone Encounter - Nakia Caraballo RN - 03/19/2025 3:14 PM EDT Botox referral sent to pharmacy as patient would like to restart botox. Last botox 09/03/24. Latonia Caraballo RN, BSN documented in this encounterSelect [facility] [place] Radiology Diagnostic study note [facility] Imaging Services [address] [place] [address] [id number] Shoulder min 2 Views MR#: [id number] Acct: [id number] Name: TORI GRAY Rep #: [id number] : 1980 F 44 From: Tameka Newsome MD PCP: Dr. Ivette Grimes MD Status: REG C EVER Study:Shoulder min 2 Views Date of Exam: 03/11/25 Exam# [id number] Ordering Dr: Brett Quiroga MD PROCEDURE: SHOULDER [...] Quiroga MD; Dr. Ivette Grimes MD ~ Solution Lead: Signed [facility]05-06-2025 Evaluation note* Diagnosis Onset Date Resolution Status Admit Date Segmental and somatic dysfunction of cervical region acute M ay 2024 9:17am Segmental and somatic dysfunction of lumbar region acute March 09, 2025 9:17am Segmental and somatic dysfunction of pelvic region acute March 09, 2025 9:17am Segmental and somatic dysfunction of thoracic region acute [facility] 2024 9:17am Disc displacement, lumbar chronic March 09, 2025 9:17am Left shoulder pain inactive March 222024 8:58am Back pain acute March 22, 2025 9:33am Segmental and somatic dysfunction of cervical region acute [facility] 2024 9:33am Segmental and somatic dysfunction of lumbar region acute March 22, 2025 9:33am Segmental and somatic dysfunction of pelvic region acute March 22, 2025 9:33am Segmental and somatic dysfunction of thoracic region acute [facility] 2024 9:33am Segmental and somatic dysfunction of [...] displacement, lumbar chronic June 17, 2025 9:27am [facility] Work Phone: [phone]) [phone] Evaluation note* Diagnosis Onset Date Resolution Status [...] left shoulder acute June 23, 2025 6:20am [facility] Work Phone: [phone]) [phone] Evaluation note* Diagnosis Onset Date Resolution Status Admit Date Segmental and somatic dysfunction of cervical region acute [facility] 2024 9:17am Segmental and somatic dysfunction of lumbar region acute March 09, 2025 9:17am Segmental and somatic dysfunction of pelvic region acute March 09, 2025 9:17am Segmental and somatic dysfunction of thoracic region acute [facility] 2024 9:17am Disc displacement, lumbar chronic March 09, 2025 9:17am Left shoulder pain inactive March 222024 8:58am Back pain acute March 22, 2025 9:33am Segmental and somatic dysfunction of cervical region acute [facility] 2024 9:33am Segmental and somatic dysfunction of lumbar region acute March 22, 2025 9:33am Segmental and somatic dysfunction of pelvic region acute March 22, 2025 9:33am Segmental and somatic dysfunction of thoracic region acute [facility] 2024 9:33am Segmental and somatic dysfunction of [...] left shoulder acute June 25, 2025 9:12am [facility] Work Phone: 1([phone]) 128-697405-06-2025 Evaluation note* Diagnosis Onset Date Resolution Status [...] 9:46pm Sepsis acute July 05, 2025 9:46pm [facility] Work Phone: [phone]) [phone] History of Present illness Narrative* Amanda Arteaga [...] visit. Either the patient or their legal medical center representative has been informed of the risks and benefits of -- and alternatives to -- treatment through a remote evaluation andconsents to proceed with the evaluation remotely. Confirmed verbally that the patient currently located in the [facility].Yes Confirmed verbally that the patient consents to being seen virtually today.Yes Confirmed verbally that the patient consents to being seen by a physician it assistant.Yes CHIEF COMPLAINT: Botox for migraines Tori [...] 1 tablet by mouth once daily. Ipratropium Kiln (ATROVENT) 21 mcg (0.03 %) nasal spray [...] 1 Each by INTRAUTERINE route as directed. Dazey-3 Fatty Acids (FISH OIL) 500 mg cap Take 1 capsule by mouth once daily. blood sugar diagnostic (BLOOD GLUCOSE TEST) test strip Test blood sugar(s) 1 times daily. Dx: Type 2 DM - Controlled E11.9 Insulin: Yes Lancets lancets Test blood sugar(s) 1 times daily. Dx: Type 2 DM - Controlled E11.9 Insulin: No Dljuokpn-Cy-Udf-Fe-FA tab Take 1 tablet by mouth once [...] which included preparing to see the patient, cjvx-ja-hjkd patient care, completing clinical documentation, obtaining and/or [...] (Sleep study not recommended) documented in this encounterSelect [facility] [place]-2025 NoteHNO ID: [id number] Author: AMANDA ARTEAGA PA-C Service: ? Author Type: Physician Detective And Intelligence Analyst Type: Progress Notes Filed: 03/10/2025 07:59 Note Text: [facility] for General Neurology New Patient Evaluation This [...] visit. Either the patient or their legal medical center representative has been informed of the risks and benefits of -- and alternatives to -- treatment through a remote evaluation and consents to proceed with the evaluation remotely. Confirmed verbally that the patient currently located in the state of [place].Yes Confirmed verbally that the patient consents to being seen virtually today.Yes Confirmed verbally that the patient consents to being seen by a physician it assistant.Yes CHIEF COMPLAINT: Botox for migraines Tori [...] time -Irma 15 a (more content not included)...[facility]05-01-2025 Telephone encounter Note* Telephone Encounter - Beata Pitts LPN - 03/04/2025 2:41 PM EDT Tried contacting patient to confirm that she just wants to discuss botox rather than get injectionsfor her upcoming appt as it's a virtual visit, per [place]. Beata Pitts LPN March 04, 2025 2:42 PM [facility]05-01-2025 Miscellaneous Notes* Telephone Encounter - Beata Pitts LPN - 03/04/2025 2:41 PM EDT Tried contacting patient to confirm that she just wants to discuss botox rather than get injectionsfor her upcoming appt as it's a virtual visit, per [place]. Beata Pitts LPN March 04, 2025 2:42 PM documented in this encounterSelect [facility] [place]04-29-2025 History of Present illness Narrative* Ivette Grimes [...] visit. Either the patient or their legal medical center representative has been informed of the risks [...] like me to send over referral at [facility]. They specialize in shoulders. Seen at optometry at [facility] for dilated vision check on February 04. [...] 1 tablet by mouth once daily. Ipratropium Kiln (ATROVENT) 21 mcg (0.03 %) nasal spray [...] 1 Each by INTRAUTERINE route as directed. Dazey-3 Fatty Acids (FISH OIL) 500 mg cap Take 1 capsule by mouth once daily. blood sugar diagnostic (BLOOD GLUCOSE TEST) test strip Test blood sugar(s) 1 times daily. Dx: Type 2 DM - Controlled E11.9 Insulin: Yes Lancets lancets Test blood sugar(s) 1 times daily. Dx: Type 2 DM - Controlled E11.9 Insulin: No Yeltmvet-Sn-Mux-Fe-FA tab Take 1 tablet by mouth once [...] Age of Onset Alcohol/Drug Mother Heart Father NH Cancer Father PANCREATIC CANCER Diabetes Father Coronary [...] ORTHOPAEDICS Ivette Grimes MD documented in this encounterSelect Medical [facility] [place]04-29-2025 NoteHNO ID: [id number] Author: IVETTE GRIMES MD Service: ? Author [...] visit. Either the patient or their legal medical center representative has been informed of the risks [...] like me to send over referral at [facility]. They specialize in shoulders. Seen at optometry at [facility] for dilated vision check on February 04. [...] 1 tablet by mouth once daily. Ipratropium Kiln (ATROVENT) 21 mcg (0.03 %) nasal spray [...] 1 Each by INTRAUTERINE route as directed. Dazey-3 Fatty Acids (FISH OIL) 500 mg cap Take 1 capsule by mouth once daily. blood sugar diagnostic (BLOOD GLUCOSE TEST) test strip Test blood sugar(s) 1 times daily. Dx: Type 2 DM - Controlled E11.9 Insulin: Yes Lancets lancets Test blood sugar(s) 1 times daily. Dx: Type 2 DM - Controlled E11.9 Insulin: No Syeryrlv-Lq-Dts-Fe-FA tab Take 1 tablet by mouth once [...] Age of Onset Alcohol/Drug Mother Heart Father NH Cancer Father PANCREATIC CANCER Diabetes Father Coronary Artery Disease Father Anxiety disorder Sister Depression Sister Depression Brother Cancer Maternal Grandmother LUNG CANCER Diabetes Maternal Grandfather Heart Paternal Grandmother TRIPLE BYPASS SURGERY Social History Tobacco Use Smoking status: Never Smokeless tobacco: Never Vaping Use Vaping status: Never Used Substance Use Topics Alcohol use (more content not included)...[facility]04-03-2025 Evaluation note* Diagnosis Onset [...] displacement, lumbar chronic March 09, 2025 9:17am [facility] Work Phone: 1(731) 356-910204-03-2025 Evaluation note* Diagnosis Onset Date Resolution Status [...] Left shoulder pain inactive March 222024 8:58am [facility] Work Phone: 1(434) 981-646404-03-2025 Evaluation note* Diagnosis Onset Date Resolution Status [...] and somatic dysfunction of thoracic region acute [facility] 2024 9:33am [facility] [employer] [facility] Work Phone: 1(738) 583-926604-03-2025 Evaluation note* Diagnosis Onset Date Resolution Status [...] and somatic dysfunction of thoracic region acute [facility] 2024 9:17am Disc displacement, lumbar chronic March 09, 2025 9:17am Left shoulder pain inactive March 222024 8:58am Back pain acute March 22, 2025 9:33am Segmental and somatic dysfunction of cervical region acute [facility] 2024 9:33am Segmental and somatic dysfunction of lumbar region acute March 22, 2025 9:33am Segmental and somatic dysfunction of pelvic region acute March 22, 2025 9:33am Segmental and somatic dysfunction of thoracic region acute [facility] 2024 9:33am Segmental and somatic dysfunction of [...] region suspected April 05, 2025 1 0:22am [facility] Work Phone: 1(606) 968-654804-03-2025 Evaluation note* Diagnosis Onset Date Resolution Status [...] displacement, lumbar chronic April 21, 2025 9:49am [facility] Work Phone: 1(200) 559-235704-03-2025 Evaluation note* Diagnosis Onset Date Resolution Status [...] Left shoulder pain inactive May 062024 10:02am [facility] Work Phone: 1([phone]) 140-217504-03-2025 Evaluation note* Diagnosis Onset Date Resolution Status [...] somatic dysfunction of cervical region acute [facility] 2024 10:22am Segmental and somatic dysfunction of lumbar region acute [facility] 2024 10:22am Segmental and somatic dysfunction of pelvic region acute Apr 10:22am Segmental and somatic dysfunction of thoracic region acute [facility] 2024 10:22am Disc displacement, lumbar chronic April 05, 2025 10:22am Segmental and somatic dysfunction of cervical region acute [facility] 2024 9:49am Segmental and somatic dysfunction of lumbar region acute [facility] 2024 9:49am Segmental and [...] displacement, lumbar chronic June 01, 2025 10:30am [facility] Work Phone: 1(697) 596-179604-02-2025 Telephone encounter Note* Telephone Encounter - Evon [...] her know when it is ready for shredder picker. [facility]04-02-2025 Miscellaneous Notes* Telephone Encounter - Evno Philippe LPN - 02/03/2025 11:46 AM EDT [...] her know when it is ready for shredder picker. * Telephone Encounter - Mirna Santos MA - 02/01/2025 2:42 PM EDT Faxed form completed to [facility] with A1C and office note Mirna Santos MA * Telephone Encounter - Evon Philippe LPN - 01/29/2025 8:31 AM EDT [employer] RESPONSE. [facility] does not handle this review. Please visit [email or web address] to start a prior authorization or fax information to [phone]. Please include all supporting chart notes. You may contact [employer] at [phone]. WILL FAX PA REQUEST TO NUMBER PROVIDED. [...] needs PA due to dose change). Provider: [employer] Name: [facility] [employer] Phone number: [phone] Patient ID number: [id number] Pharmacy Name: [facility] Pharmacy Pharmacy Telephone number: [phone] documented in this encounterSelect [facility] [place]03-31-2025 Telephone encounter Note * Telephone Encounter - Mirna Santos MA - 02/01/2025 2:42 PM EDT Faxed form completed to [employer] with A1C and office note Mirna Santos MA [facility]03-28-2025 Telephone encounter Note* Telephone Encounter - Evon Philippe LPN - 01/29/2025 8:31 AM EDT [employer] RESPONSE. [facility] does not handle this review. Please visit [email or web address] to start a prior authorization or fax information to [phone]. Please include all supporting chart notes. You may contact [facility] at [phone]. WILL FAX PA REQUEST TO NUMBER PROVIDED. Records faxed to for PA. [facility]03-27-2025 Telephone encounter Note* Telephone Encounter - Evon Philippe LPN - 01/28/2025 4:56 PM EDT Unable to complete electronically. Will try on covermymeds [facility]03-27-2025 Telephone encounter Note* Telephone Encounter - Evon Philippe LPN - 01/28/2025 4:55 PM EDT Electronic PA requested. [facility]03-27-2025 Telephone encounter Note* Telephone Encounter - Krystle Barnett RN - 01/28/2025 4:51 PM EDT Prior Authorization Documentation Prior authorization requested for the following medication: Medication: Ozempic 1 mg (all though PA done in Aug 2024 and approved until Aug 2025 this needs PA due to dose change). Provider: [employer] Name: [facility] [employer] Phone number: [phone] Patient ID number: [id number] Pharmacy Name: [facility] Pharmacy Pharmacy Telephone number: [phone] [facility]03-27-2025 Telephone encounter Note* Telephone Encounter - Dennise Robles MA - 01/28/2025 8:45 AM EDT Scan on 01/28/2025 8:29 AM by ProviderSherry PA-C: BMP Scan on 01/28/2025 8:17 AM by ProviderSherry PA-C: HGB A1C [facility]03-27-2025 Miscellaneous Notes* Telephone Encounter - Dennise Robles MA - 01/28/2025 8:45 AM EDT Scan on 01/28/2025 8:29 AM by ProviderSherry PA-C: BMP Scan on 01/28/2025 8:17 AM by Sherry Mccallum PA-C: HGB A1C documented in this encounterSelect Medical Specialty [facility] [place]03-21-2025 NoteHNO ID: [id number] Author: IVETTE GRIMES MD Service: ? Author [...] 1 tablet by mouth once daily. Ipratropium Kiln (ATROVENT) 21 mcg (0.03 %) nasal spray [...] 1 Each by INTRAUTERINE route as directed. Dazey-3 Fatty Acids (FISH OIL) 500 mg cap Take 1 capsule by mouth once daily. blood sugar diagnostic (BLOOD GLUCOSE TEST) test strip Test blood sugar(s) 1 times daily. Dx: Type 2 DM - Controlled E11.9 Insulin: Yes Lancets lancets Test blood sugar(s) 1 times daily. Dx: Type 2 DM - Controlled E11.9 Insulin: No Cnwqyvqp-Fq-Bxt-Fe-FA tab Take 1 tablet by mouth once [...] Age of Onset Alcohol/Drug Mother Heart Father NH Cancer Father PANCREATIC CANCER Diabetes Father Coronary [...] Wt Readings: Date: Wt: (more content not included)...[facility]03-21-2025 History of Present illness [...] 1 tablet by mouth once daily. Ipratropium Kiln (ATROVENT) 21 mcg (0.03 %) nasal spray [...] 1 Each by INTRAUTERINE route as directed. Dazey-3 Fatty Acids (FISH OIL) 500 mg cap Take 1 capsule by mouth once daily. blood sugar diagnostic (BLOOD GLUCOSE TEST) test strip Test blood sugar(s) 1 times daily. Dx: Type 2 DM - Controlled E11.9 Insulin: Yes Lancets lancets Test blood sugar(s) 1 times daily. Dx: Type 2 DM - Controlled E11.9 Insulin: No Bzpaceif-Ip-Jfx-Fe-FA tab Take 1 tablet by mouth once [...] Age of Onset Alcohol/Drug Mother Heart Father NH Cancer Father PANCREATIC CANCER Diabetes Father Coronary [...] six months and prn. documented in this encounterSelect [facility] [place]02-21-2025 Telephone encounter Note * Telephone Encounter - [...] Storey LPN December 25, 2024 8:58 AM [facility]02-21-2025 Miscellaneous Notes* Telephone Encounter - Nirmala Storey [...] 25, 2024 8:58 AM documented in this encounterSelect [facility] [place]02-17-2025 Telephone encounter Note * Telephone Encounter - Jumana Harrell LPN - 12/21/2024 3:19 PM EST Patient notified of results, verbalizes understanding of instructions. Pt stated she is about 80% better with the z-pack and cough drops. Will call is get worse again. Jumana Harrell LPN [facility]02-17-2025 Miscellaneous Notes* Telephone Encounter - Jumana Harrell [...] zpack? Jenni Jain APRN.GABRIELA documented in this encounterSelect Medical Specialty [facility] [place]02-17-2025 Telephone encounter Note * Telephone Encounter - [...] improved with the zpack? Jenni Jain APRN.GABRIELA [facility] Work Phone: 1(101) 841-567002-07-2025 Telephone encounter Note* Telephone Encounter - Jumana Harrell LPN - 12/11/2024 2:24 PM EST Patient notified of results, verbalizes understanding of instructions. Jumana Harrell LPN [facility]02-07-2025 Miscellaneous Notes* Telephone Encounter - Jumana Harrell LPN - 12/11/2024 2:24 PM EST Patient notified of results, verbalizes understanding of instructions. Jumana Harrell LPN * Telephone Encounter - Jenni Jain APRN.CNP - 12/11/2024 2:16 PM EST Can you please call the patient and let her know that I am still waiting for x- ray results from [facility]. I went ahead and sent in a [...] Provider: JENNI JAIN APRN.CNP documented in this encounterSelect Medical [facility] [place]02-07-2025 Telephone encounter Note * Telephone Encounter - Jenni Jain APRN.CNP - 12/11/2024 2:16 PM EST Can you please call the patient and let her know that I am still waiting for x- ray results from [facility]. I went ahead and sent in a [...] until gone. Authorizing Provider: JENNI JAIN APRN.CNP [facility]02-07-2025 Instructions* Patient Instructions* Jenni Jain APRN.CNP - 12/11/2024 11:32 AM EST Get chest xray completed today May use Codeine cough syrup as needed for cough Stay well hydrated Follow up pending test results. documented in this encounterSelect Medical [facility] [place]02-07-2025 History of Present illness Narrative* Jenni Jain [...] 1 tablet by mouth once daily. Ipratropium Kiln (ATROVENT) 21 mcg (0.03 %) nasal spray [...] 1 Each by INTRAUTERINE route as directed. Dazey-3 Fatty Acids (FISH OIL) 500 mg cap Take 1 capsule by mouth once daily. blood sugar diagnostic (BLOOD GLUCOSE TEST) test strip Test blood sugar(s) 1 times daily. Dx: Type 2 DM - Controlled E11.9 Insulin: Yes Lancets lancets Test blood sugar(s) 1 times daily. Dx: Type 2 DM - Controlled E11.9 Insulin: No Pkymtwfc-Te-Ayd-Fe-FA tab Take 1 tablet by mouth once daily. No current facility-administered medications for this visit. FAMILY HISTORY Problem Relation Age of Onset Alcohol/Drug Mother Heart Father NH Cancer Father PANCREATIC CANCER Diabetes Father Coronary [...] discussed and patient voices understanding. Jenni Jain APRN.CNP This note was partially generated using [employer] voice recognition system. Note was reviewed for accuracy. There may be minor misspellings or grammar miscues with [employer] voice recognition. documented in this encounterSelect Medical [facility] [place]02-07-2025 NoteHNO ID: [id number] Author: JENNI JAIN APRN.CNP Service: ? Author [...] 1 tablet by mouth once daily. Ipratropium Kiln (ATROVENT) 21 mcg (0.03 %) nasal spray [...] 1 Each by INTRAUTERINE route as directed. Dazey-3 Fatty Acids (FISH OIL) 500 mg cap Take 1 capsule by mouth once daily. blood sugar diagnostic (BLOOD GLUCOSE TEST) test strip Test blood sugar(s) 1 times daily. Dx: Type 2 DM - Controlled E11.9 Insulin: Yes Lancets lancets Test blood sugar(s) 1 times daily. Dx: Type 2 DM - Controlled E11.9 Insulin: No Pvgpdmhs-Zb-Nge-Fe-FA tab Take 1 tablet by mouth once daily. No current facility-administered medications for this visit. FAMILY HISTORY Problem Relation Age of Onset Alcohol/Drug Mother Heart Father NH Cancer Father PANCREATIC CANCER Diabetes Father Coronary [...] : No history o (more content not included)...[facility] 12-11-2024 Telephone encounter Note* Telephone Encounter - Brittney Meredith RN - 12/11/2024 8:17 AM EST Patient calling to make appt for evaluation of respiratory sx's that began approx 4 weeks ago. Pt states she feels she may have bronchitis or pneumonia. States she was at [facility] ER last month due to dizziness, vision [...] evaluation of respiratory sx's. Brittney Meredith RN [facility]02-07-2025 Miscellaneous Notes* Telephone Encounter - Brittney Meredith RN - 12/11/2024 8:17 AM EST Patient calling to make appt for evaluation of respiratory sx's that began approx 4 weeks ago. Pt states she feels she may have bronchitis or pneumonia. States she was at [facility] ER last month due to dizziness, vision [...] sx's. Brittney Meredith RN documented in this encounterSelect Medical [facility] [place]01-22-2025 Telephone encounter Note * Telephone Encounter - [...] hours as needed for wheezing/shortness of breath. aHiley Eric LPN November 25, 2024 2:23 PM [facility]01-22-2025 Miscellaneous Notes* Telephone Encounter - Hailey Eric [...] not found Please advise. Thank you. Stephanie Parsosn. documented in this encounterSelect Medical Specialty [facility] [place]01-22-2025 Telephone encounter Note * Telephone Encounter - [...] found Please advise. Thank you. Stephanie Parsons. [facility]01-20-2025 Telephone encounter Note* Telephone Encounter - [...] Judith Cueto November 23, 2024 12:[address] [facility]01-20-2025 Miscellaneous Notes* Telephone Encounter - Judith [...] 23, 2024 12:34 PM documented in this encounterSelect Medical [facility]ty [facility] [place]01-14-2025 NotePatient Outreach (FAMPWS) TORI GRAY ([id number]) 1980 F Date Time Provider Department [facility] today, we recorded [...] for screening mammogram for breast cancer [Z12.31] Order(s):[facility] SCREENING [facility]QU[facility]IN [[id number]] Order #: [id number] FUTURE Prescriptions as of 12/18/2024 - potassium [...] tablet by mouth once daily. - Ipratropium Kiln (ATROVENT) 21 mcg (0.03 %) nasal spray [...] Each by INTRAUTERINE route as directed. - Dazey-3 Fatty Acids (FISH OIL) 500 mg cap Take 1 capsule by mouth once daily. - blood sugar diagnostic (BLOOD GLUCOSE TEST) test strip Test blood sugar(s) 1 times daily. Dx: Type 2 DM - Controlled E11.9 Insulin: Yes - Lancets lancets Test blood sugar(s) 1 times daily. Dx: Type 2 DM - Controlled E11.9 Insulin: No - Yqwakcmp-Tk-Kvu-Fe-FA tab Take 1 tablet by mouth once [...] Routine general medical examination at [facility]*01/23/2010 12/06/2012 Class: Chronic Routine gynecological examination [Z01.419] 01/23/2010 02/22/2014 Class: Chronic Morbid Obesity [E66.01] 01/23/2010 Lumbar Disc Disorder [M51.9] 02/16/2010 Routine general medical examination at [facility]*12/06/2012 02/22/2014 Anxiety [F41.9] 06/07/2014 Type 2 [...] type 2 diabetes m (more content not included)...[facility]12-23-2024 Telephone encounter Note* Telephone [...] France RN October 26, 2024 7:53 PM [facility]12-23-2024 Miscellaneous Notes* Telephone Encounter - Priscila France [...] 26, 2024 7:53 PM documented in this encounterSelect Medical [facility] [place]12-16-2024 History of Present illness Narrative* Ivette Grimes [...] visit. Either the patient or their legal medical center representative has been informed of the risks [...] hours asneeded for wheezing/shortness of breath. Ipratropium Kiln (ATROVENT) 21 mcg (0.03 %) nasal spray [...] 1 Each by INTRAUTERINE route as directed. Dazey-3 Fatty Acids (FISH OIL) 500 mg cap Take 1 capsule by mouth once daily. blood sugar diagnostic (BLOOD GLUCOSE TEST) test strip Test blood sugar(s) 1 times daily. Dx: Type 2 DM - Controlled E11.9 Insulin: Yes Lancets lancets Test blood sugar(s) 1 times daily. Dx: Type 2 DM - Controlled E11.9 Insulin: No Knkxnzuj-To-Zqr-Fe-FA tab Take 1 tablet by mouth once [...] Age of Onset Alcohol/Drug Mother Heart Father NH Cancer Father PANCREATIC CANCER Diabetes Father Coronary [...] TABLET Ivette Grimes MD documented in this encounterSelect [facility] [place]12-16-2024 NoteHNO ID: [id number] Author: IVETTE GRIMES MD Service: ? Author [...] visit. Either the patient or their legal medical center representative has been informed of the risks [...] as needed for wheezing/shortness of breath. Ipratropium Kiln (ATROVENT) 21 mcg (0.03 %) nasal spray [...] 1 Each by INTRAUTERINE route as directed. Dazey-3 Fatty Acids (FISH OIL) 500 mg cap Take 1 capsule by mouth once daily. blood sugar diagnostic (BLOOD GLUCOSE TEST) test strip Test blood sugar(s) 1 times daily. Dx: Type 2 DM - Controlled E11.9 Insulin: Yes Lancets lancets Test blood sugar(s) 1 times daily. Dx: Type 2 DM - Controlled E11.9 Insulin: No Ligeapmq-Ox-Ktb-Fe-FA tab Take 1 tablet by mouth once [...] Age of Onset Alcohol/Drug Mother Heart Father NH Cancer Father PANCREATIC CANCER Diabetes Father Coronary [...] wheeze. No pallor. ASSESSM (more content not included)...[facility]12-16-2024 Evaluation note* Diagnosis Onset Date Resolution Status Admit Date Segmental and somatic dysfunction of lumbar region acute Oct 8:57am Segmental and somatic dysfunction of pelvic region acute Oct 8:57am Segmental and somatic dysfunction of thoracic region acute October 19, 024 8:57am Disc displacement, lumbar chronic October 19, 2024 8:57am [facility] Work Phone: 1(454) 360-736411-21-2024 History of Present illness Narrative* Ivette Grimes [...] visit. Either the patient or their legal medical center representative has been informed of the risks [...] No increased caffeine. Sugars are increased recently [phone]=[id number]'s. Not coming down as much as it [...] hours asneeded for wheezing/shortness of breath. Ipratropium Kiln (ATROVENT) 21 mcg (0.03 %) nasal spray [...] 1 Each by INTRAUTERINE route as directed. Dazey-3 Fatty Acids (FISH OIL) 500 mg cap Take 1 capsule by mouth once daily. blood sugar diagnostic (BLOOD GLUCOSE TEST) test strip Test blood sugar(s) 1 times daily. Dx: Type 2 DM - Controlled E11.9 Insulin: Yes Lancets lancets Test blood sugar(s) 1 times daily. Dx: Type 2 DM - Controlled E11.9 Insulin: No Pkjypiwb-Rw-Fdr-Fe-FA tab Take 1 tablet by mouth once [...] Age of Onset Alcohol/Drug Mother Heart Father NH Cancer Father PANCREATIC CANCER Diabetes Father Coronary [...] weeks Ivette Grimes MD documented in this encounterSelect Medical [facility]ty [facility] [place]11-21-2024 NoteHNO ID: [id number] Author: IVETTE GRIMES MD Service: ? Author [...] visit. Either the patient or their legal medical center representative has been informed of the risks [...] No increased caffeine. Sugars are increased recently [id number]'s. Not coming down as much as it [...] as needed for wheezing/shortness of breath. Ipratropium Kiln (ATROVENT) 21 mcg (0.03 %) nasal spray [...] 1 Each by INTRAUTERINE route as directed. Dazey-3 Fatty Acids (FISH OIL) 500 mg cap Take 1 capsule by mouth once daily. blood sugar diagnostic (BLOOD GLUCOSE TEST) test strip Test blood sugar(s) 1 times daily. Dx: Type 2 DM - Controlled E11.9 Insulin: Yes Lancets lancets Test blood sugar(s) 1 times daily. Dx: Type 2 DM - Controlled E11.9 Insulin: No Koslcoqu-Dv-Shu-Fe-FA tab Take 1 tablet by mouth once [...] Age of Onset Alcohol/Drug Mother Heart Father [place] Cancer Father PANCREATIC CANCER Diabetes Father Coronary [...] Wt Readings: Date: Wt: (more content not included)...[facility]10-31-2024 Instructions* Patient Instructions* Fatuma [...] office for further instructions. documented in [facility] encounter[facility] [place] History of Present illness Narrative* Fatuma Beckford [...] for migraine Informed Consent Consent Obtained: Written Wilmot Protocol A moment to CARE was completed [...] applicable Written Consent Obtained: Written LOT #: [id number] Expiration Date: Month: Year: 2025 Second vial: LOT #: [id number] Expiration Date: Month: 12 Year: 2025 Injection Sites Left (Units) Left (Sites) Right (Units) Right (Sites) TOTAL (Units) Eligibility Worker 5 1 5 1 10 Procerus Units: [...] march. Fatuma Beckford PA-C documented in this encounterSelect [facility] [place]10-29-[facility]24 Telephone encounter Note * Telephone Encounter - Rebecca Baker - 09/01/2024 4:08 PM EDT Tori was Ok'ed to get her botox appointment moved into a new patient time due to frequent rescheduling of this visit. She is now scheduled for , 09/03. She has also requested a refill of her Nurtec ODT medication. Please adviseRebecca [facility]10-29-2024 Miscellaneous Notes* Telephone Encounter - Rebecca Baker - 09/01/2024 4:08 PM EDT Tori was Ok'ed to get her botox appointment moved into a new patient time due to frequent rescheduling of this visit. She is now scheduled for , 09/03. She has also requested a refill of her Nurtec ODT medication. Please advise, Rebecca Baker documented in this encounterSelect [facility] [place]10-29-2024 Telephone encounter Note * Telephone Encounter - [...] with this date and time. Rebecca Baker [facility]10-29-2024 Miscellaneous Notes* Telephone Encounter - Rebecca Baker [...] Nieto - 09/01/2024 3:30 PM EDT 09/10 [place] appt rescheduled to 10/08 and put on wait list. Provider will be out of office. 1st attempt to notify pt, sent MC message. documented in this encounterSelect [facility] [place]10-29-2024 Telephone encounter Note * Telephone Encounter - Tala Wilson - 09/01/2024 3:54 PM EDT Patient read mychart [facility]10-29-2024 Telephone encounter Note* Telephone Encounter - Steph Nieto - 09/01/2024 3:30 PM EDT 09/10 [place] appt rescheduled to 10/08 and put on wait list. Provider will be out of office. 1st attempt to notify pt, sent MC message. [facility]10-08-2024 Telephone encounter Note* Telephone Encounter - Steph Nieto - 08/11/2024 3:58 PM EDT Pt read MC message. [facility]10-08-2024 Miscellaneous Notes* Telephone Encounter - Steph Nieto - 08/11/2024 3:58 PM EDT Pt read MC message. * Telephone Encounter - Steph Nieto - 08/11/2024 3:32 PM EDT [place] appt on 09/10 moved to 3 PM. 1st attempt to notify pt, sent MC message. documented in this encounterSelect [facility] [place]10-08-2024 Telephone encounter Note * Telephone Encounter - Steph Nieto - 08/11/2024 3:32 PM EDT [place] appt on 09/10 moved to 3 PM. 1st attempt to notify pt, sent MC message. [facility]10-08-2024 Telephone encounter Note* Telephone Encounter - Ingrid [...] Salmon MA August 11, 2024 11:06 AM [facility]10-08-2024 Miscellaneous Notes* Telephone Encounter - Ingrid Salmon [...] 11, 2024 11:06 AM documented in this encounterSelect [facility] [place]10-03-2024 Telephone encounter Note * Telephone Encounter - Dennise Robles MA - 08/06/2024 10:38 AM EDT APPROVAL. SAGE. EOC # [id number] VALIDITY DATES 08/06/24-08/05/25 Pharmacy informed. Dennise Robles MA [facility]10-03-2024 Miscellaneous Notes* Telephone Encounter - Dennise Robles MA - 08/06/2024 10:38 AM EDT APPROVAL. SAGE. EOC # [id number] VALIDITY DATES 08/06/24-08/05/25 Pharmacy informed. 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 Excited for this because will not be as physical. Reviewed labs recently done at [facility]. A1c was 6.7. ldl was 105. Hdl [...] hours asneeded for wheezing/shortness of breath. Ipratropium Kiln (ATROVENT) 21 mcg (0.03 %) nasal spray [...] 1 Each by INTRAUTERINE route as directed. Dazey-3 Fatty Acids (FISH OIL) 500 mg cap Take 1 capsule by mouth once daily. blood sugar diagnostic (BLOOD GLUCOSE TEST) test strip Test blood sugar(s) 1 times daily. Dx: Type 2 DM - Controlled E11.9 Insulin: Yes Lancets lancets Test blood sugar(s) 1 times daily. Dx: Type 2 DM - Controlled E11.9 Insulin: No Aoeqhxhg-Rc-Qlk-Fe-FA tab Take 1 tablet by mouth once [...] Age of Onset Alcohol/Drug Mother Heart Father [place] Cancer Father PANCREATIC CANCER Diabetes Father Coronary [...] stable. Ivette Grimes MD documented in this encounterSelect [facility] [place]09-23-2024 Telephone encounter Note * Telephone Encounter - [...] Yoon LPN July 27, 2024 8:45 AM [facility] [place]09-23-2024 Miscellaneous Notes* Telephone Encounter - Lubna Yoon [...] 27, 2024 8:45 AM documented in this encounterSelect [facility] [place]09-17-2024 Telephone encounter Note * Telephone Encounter - Ingrid Salmon MA - 07/21/2024 3:02 PM EDT Pt notified. Requested to have order faxed to [facility]. Order faxed. Ingrid Salmon MA [facility] [place]09-17-2024 Miscellaneous Notes* Telephone Encounter - Ingrid Salmon MA - 07/21/2024 3:02 PM EDT Pt notified. Requested to have order faxed to [facility]. Order faxed. Ingrid Salmon MA * Telephone [...] advise, Gale Bower RN documented in this encounterSelect [facility] [place]09-17-2024 Telephone encounter Note * Telephone Encounter - Ivette Grimes MD - 07/21/2024 2:18 PM EDT ordered [facility] [place]09-17-2024 Telephone encounter Note* Telephone Encounter - Gale Bower RN - 07/21/2024 1:45 PM EDT Patient calls and states that cough is not getting any better. Patient states that Dr. Grimes had told her that if cough had not improved that provider wanted to order her a chest xray. Please review and advise, Gale Bower RN [facility] [place]09-06-2024 Telephone encounter Note* Telephone Encounter - Nirmala Storey LPN - 07/10/2024 11:16 AM EDT Left detailed message for patient. [facility] [place]-06-2024 Miscellaneous Notes* Telephone Encounter - Nirmala Storey LPN - 07/10/2024 11:16 AM EDT Left detailed message for patient. * Telephone Encounter - Ivette Grimes MD - 07/10/2024 11:11 AM EDT Rx sent for farxiga. Lets try this Call sugars in two weeks. * Telephone Encounter - Gael Bower RN - 07/09/2024 4:34 PM EDT [...] advise, Gale Bower RN documented in this encounterSelect [facility] [place]09-06-2024 Telephone encounter Note * Telephone Encounter - Ivette Grimes MD - 07/10/2024 11:11 AM EDT Rx sent for farxiga. Lets try this Call sugars in two weeks. [facility] [place]09-05-2024 Telephone encounter Note* Telephone Encounter - Gale [...] Please review and advise, Gale Bower RN [facility] [place]09-04-2024 Telephone encounter Note* Telephone Encounter - Ivette Grimes MD - 07/08/2024 2:03 PM EDT noted [facility] [place]09-04-2024 Miscellaneous Notes* Telephone Encounter - Ivette Grimes MD - 07/08/2024 2:03 PM EDT noted * Telephone Encounter - Dennise Robles MA - 07/08/2024 1:13 PM EDT Labs in chart review. Dennise Robles MA documented in this encounterSelect [facility] [place]09-04-2024 Telephone encounter Note * Telephone Encounter - Dennise Robles MA - 07/08/2024 1:13 PM EDT Labs in chart review. Dennise Robles MA [facility] [place]08-30-2024 History of Present illness Narrative* Ivette Grimes [...] hours asneeded for wheezing/shortness of breath. Ipratropium Kiln (ATROVENT) 21 mcg (0.03 %) nasal spray [...] 1 Each by INTRAUTERINE route as directed. Dazey-3 Fatty Acids (FISH OIL) 500 mg cap Take 1 capsule by mouth once daily. blood sugar diagnostic (BLOOD GLUCOSE TEST) test strip Test blood sugar(s) 1 times daily. Dx: Type 2 DM - Controlled E11.9 Insulin: Yes Lancets lancets Test blood sugar(s) 1 times daily. Dx: Type 2 DM - Controlled E11.9 Insulin: No Eergywhz-Yz-Ztf-Fe-FA tab Take 1 tablet by mouth once [...] Age of Onset Alcohol/Drug Mother Heart Father [place] Cancer Father PANCREATIC CANCER Diabetes Father Coronary [...] follow up or prn documented in this encounterSelect [facility] [place]08-24-2024 Telephone encounter Note * Telephone Encounter - [...] Lazo LPN June 27, 2024 11:35 AM [facility] [place]08-24-2024 Miscellaneous Notes* Telephone Encounter - Quinn Lazo [...] 27, 2024 11:35 AM documented in this encounterSelect [facility] [place]08-24-2024 Telephone encounter Note * Telephone Encounter - [...] Lazo LPN June 27, 2024 11:29 AM [facility] [place]08-24-2024 Miscellaneous Notes* Telephone Encounter - Quinn Lazo [...] 27, 2024 11:29 AM documented in this encounterSelect [facility] [place]08-08-2024 Telephone encounter Note * Telephone Encounter - Lubna De La Garza APRN.GABRIELA - 06/11/2024 12:40 PM EDT Tessalon Perles were ordered. [facility]08-08-2024 Miscellaneous Notes* Telephone Encounter - Lubna De La Garza APRN.CNP - 06/11/2024 12:40 PM EDT Tessalon Perles were ordered. * Telephone Encounter - Ingrid Salmon MA - 06/11/2024 12:25 PM EDT See [employer] message documented in this encounterSelect [facility] [place]08-08-2024 Telephone encounter Note * Telephone Encounter - Ingrid Salmon MA - 06/11/2024 12:25 PM EDT See [employer] message [facility] [place]08-01-2024 Telephone encounter Note* Telephone Encounter - Claribel Wright LPN - 06/04/2024 3:37 PM EDT Prior Auth Determination: Denied with Cover my meds. Received via: [facility] Medication/ Treatment: [facility] Reason: Outcome N/A today [facility] Prior Authorization Department does not manage Prior Authorizations for this plan. Please contact member services phone number on the back of the member ID card. Appeal Information (if included): Re submitted via [employer] Faxed to [phone] Confirmation received [facility] [place]08-01-2024 Miscellaneous Notes* Telephone Encounter - Claribel Wright LPN - 06/04/2024 3:37 PM EDT Prior Auth Determination: Denied with Cover my meds. Received via: [facility] Reason: Outcome N/A today by [facility] Prior Authorization Department does not manage Prior Authorizations for this plan. Please contact member services phone number on the back of the member ID card. Appeal Information (if included): Re submitted via [employer] Faxed to [phone] Confirmation received * Telephone Encounter - Claribel Wright LPN - 06/04/2024 2:22 PM EDT Prior Authorization PENDING Prior Authorization Request From: [facility] Medication/ Treatment: Nurtec Submitted Via Cover My Meds Reference# (if available): (Santos: [id number]) documented in this encounterSelect [facility] [place]08-01-2024 Telephone encounter Note * Telephone Encounter - Claribel Wright LPN - 06/04/2024 2:22 PM EDT Prior Authorization PENDING Prior Authorization Request From: [facility] Medication/ Treatment: Nurtec Submitted Via Cover My Meds Reference# (if available): (Santos: [id number]) [facility]-31-[facility]24 History of Present illness Narrative* Ivette Grimes [...] visit. Either the patient or their legal medical center representative has been informed of the risks [...] hours asneeded for wheezing/shortness of breath. Ipratropium Kiln (ATROVENT) 21 mcg (0.03 %) nasal spray [...] 1 Each by INTRAUTERINE route as directed. Dazey-3 Fatty Acids (FISH OIL) 500 mg cap Take 1 capsule by mouth once daily. blood sugar diagnostic (BLOOD GLUCOSE TEST) test strip Test blood sugar(s) 1 times daily. Dx: Type 2 DM - Controlled E11.9 Insulin: Yes Lancets lancets Test blood sugar(s) 1 times daily. Dx: Type 2 DM - Controlled E11.9 Insulin: No Mrumjxoc-Uo-Ase-Fe-FA tab Take 1 tablet by mouth once [...] Age of Onset Alcohol/Drug Mother Heart Father [place] Cancer Father PANCREATIC CANCER Diabetes Father Coronary [...] issues. Ivette Grimes MD documented in this encounterSelect [facility] [place]07-10-2024 Telephone encounter Note * Telephone Encounter - [...] Lazo LPN May 13, 2024 11:29 AM [facility] [place]07-10-2024 Miscellaneous Notes* Telephone Encounter - Quinn Lazo [...] 13, 2024 11:29 AM documented in this encounterSelect [facility] [place]06-28-2024 Telephone encounter Note * Telephone Encounter - Cindy Edouard APRN.CNP - 05/01/2024 12:08 PM EDT Script sent. Cindy Edouard APRN.CNP [facility] Work Phone: 1(489) 111-219006-28-2024 Miscellaneous Notes* Telephone Encounter - Cindy Edouard APRN.CNP - 05/01/2024 12:08 PM EDT Script sent. Cindy Edouard APRN.CNP * Telephone Encounter - Rukhsana Wood - 05/01/2024 11:47 AM EDT Tori is calling Ivette Grimes MD today to request a medication not on current med list: Tizanidine 4 mg tablet taking every 8 hours as needed #60 refill 0 Pharmacy [facility] Please send today if possible, patient is out of this medicaiton Patient has been identified by name and birthdate. Duration of symptoms: N/A Person calling: self Call patient at: on cell [phone] (home) [phone] (work) [phone] (cell) Was an appointment scheduled: No Closing statement: Results or non-symptom based questions: Thank you for calling [facility], your call will be returned within the next business day. Rukhsana Guerrero documented in this encounterSelect Medical [facility] [place]06-28-2024 Telephone encounter Note * Telephone Encounter - Rukhsana Wood - 05/01/2024 11:47 AM EDT Tori is calling Ivette Grimes MD today to request a medication not on current med list: Tizanidine 4 mg tablet taking every 8 hours as needed #60 refill 0 Pharmacy [facility] Please send today if possible, patient is out of this medicaiton Patient has been identified by name and birthdate. Duration of symptoms: N/A Person calling: self Call patient at: on cell [phone] (home) [phone] (work) [phone] (cell) Was an appointment scheduled: No Closing statement: Results or non-symptom based questions: Thank you for calling [facility], your call will be returned within the next business day. Rukhsana Guerrero [facility] [place]06-17-2024 Telephone encounter Note* Telephone Encounter - Priscila [...] France RN April 20, 2024 11:22 AM [facility] [place]06-17-2024 Miscellaneous Notes* Telephone Encounter - Priscila France [...] 20, 2024 11:22 AM documented in this encounterSelect [facility] [place]06-17-2024 Telephone encounter Note * Telephone Encounter - [...] Yoon LPN April 20, 2024 10:56 AM [facility] [place]-17-2024 Miscellaneous Notes* Telephone Encounter - Lubna Yoon [...] for 180 days. Take one po qhs Lunba Yoon LPN April 20, 2024 10:56 AM documented in this encounterSelect [facility] [place]06-12-2024 Telephone encounter Note * Telephone Encounter - Mirna Santos MA - 04/15/2024 12:33 PM EDT PA approved till 04/14/2025. Faxed approval to pharmacy and patient left Mirna Santos MA [facility]06-12-2024 Miscellaneous Notes* Telephone Encounter - Mirna Santos MA - 04/15/2024 12:33 PM EDT PA approved till 04/14/2025. Faxed approval to pharmacy and patient left Mirna Santos MA * Telephone Encounter - Mirna Santos MA - 04/15/2024 8:42 AM EDT Submitted PA through [employer] for Trulicity 0.75 mg. Form faxed with office notes and A1c results Mirna Santos MA documented in this encounterSelect [facility] [place]06-12-2024 Telephone encounter Note * Telephone Encounter - Mirna Santos MA - 04/15/2024 8:42 AM EDT Submitted PA through [employer] for Trulicity 0.75 mg. Form faxed with office notes and A1c results Mirna Santos MA [facility] [place]06-11-2024 Telephone encounter Note* Telephone Encounter - Sheron Anne - 04/14/2024 9:01 AM EDT Last: 02/15/2023 Noted-Follow up in 3 months. Consider transfer of care back to PCP if patient does well on the current dose of her medication atthe next visit. It does not appear that you have seen her since [facility]06-11-2024 Miscellaneous Notes* Telephone Encounter - Sheron Anne - 04/14/2024 9:01 AM EDT Last: 02/15/2023 Noted-Follow up in 3 months. Consider transfer of care back to PCP if patient does well on the current dose of her medication atthe next visit. It does not appear that you have seen her since documented in this encounterSelect [facility] [place]06-03-2024 Telephone encounter Note * Telephone Encounter - Darrion Severino MA - 04/06/2024 2:26 PM EDT Reminder set for botox authorization to be submitted 05/31. Due for next visit 07/01/24. Previous 04/02/24. [facility]-03[facility]24 Miscellaneous Notes* Telephone Encounter - Darrion Severino MA - 04/06/2024 2:26 PM EDT Reminder set for botox authorization to be submitted 05/31. Due for next visit 07/01/24. Previous 04/02/24. documented in this encounterSelect [facility] [place]05-30-2024 Instructions* Patient Instructions* Fatuma Beckford PA-C - [...] at for further instructions. documented in this encounterSelect Medical Specialty [facility] [place]05-30-2024 History of Present illness Narrative* Fatuma Beckford [...] for migraine Informed Consent Consent Obtained: Written Wilmot Protocol A moment to CARE was completed [...] applicable Written Consent Obtained: Written LOT #: [id number] Expiration Date: Month: Year: 2025 Second vial: LOT #: [id number] Expiration Date: Month: 6 Year: 2025 Injection Sites Left (Units) Left (Sites) Right (Units) Right (Sites) TOTAL (Units) Eligibility Worker 5 1 5 1 10 Procerus Units: [...] needed. Fatuma Beckford PA-C documented in this encounterSelect [facility] [place]04-26-2024 Telephone encounter Note * Telephone Encounter - Alyssa Andrews LPN - 02/28/2024 1:21 PM EDT Patient MyChart message requesting the following refill Refill(s) Requested: Requested Prescriptions Pending Prescriptions Disp Refills tiZANidine (ZANAFLEX) 4 mg tablet 60 tablet 0 Sig: Take 1 tablet by mouth every 8 hours as needed. ALLERGIES Allergen Reactions Lidocaine Hives Steroids [Betametha* Hives (home) [phone] (work) [phone] (cell) Last Office Visit Date: 12/09/2023 Last [facility] Visit: 07/15/2023 Future Appointment: Visit date not found The patients preferred pharmacy has been captured for this encounter? yes Request is for script(s) to be escript to pharmacy. Alyssa Andrews LPN [facility] [place]04-26-2024 Miscellaneous Notes* Telephone Encounter - Alyssa Andrews LPN - 02/28/2024 1:21 PM EDT Patient MyChart message requesting the following refill Refill(s) Requested: Requested Prescriptions Pending Prescriptions Disp Refills tiZANidine (ZANAFLEX) 4 mg tablet 60 tablet 0 Sig: Take 1 tablet by mouth every 8 hours as needed. ALLERGIES Allergen Reactions Lidocaine Hives Steroids [Betametha* Hives (home) [phone] (work) [phone] (cell) Last Office Visit Date: 12/09/2023 Last [facility] Visit: 07/15/2023 Future Appointment: Visit date not found The patients preferred pharmacy has been captured for this encounter? yes Request is for script(s) to be escript to pharmacy. Alyssa Andrews LPN documented in this encounterSelect [facility] [place]03-20-2024 Miscellaneous Notes* Telephone Encounter - Stephanie Parsons - 01/22/2024 4:00 PM EDT Patient has been identified by name and date of : Yes Patient phones for refill(s): Patient called for a refill of Tizanidine 4 mg. (Not in refill list). Please send to [facility] pharmacy. Date of last office visit in primary care: 12/09/2023 Date of next office visit in primary care: none Please advise. Thank you. Stephanie Parsons. documented in this encounterSelect [facility] [place]03-13-2024 Miscellaneous Notes* Telephone Encounter - Roya Jaramillo LPN - 01/15/2024 12:07 PM EDT Fax received- Anthony has been approved from 01/15/24 - 04/16/24. Roya Jaramillo LPN * Telephone Encounter - Angely Goldsmith LPN - 01/14/2024 5:30 PM EDT Faxed Prior authorization Anthony, signed by provider to [place] [phone]. Angely Goldsmith LPN * Telephone Encounter - Angely Goldsmith LPN - 01/09/2024 5:17 PM EST Prior Authorization from [employer] received for Nurtec 75 mg, EOC number [id number] dated 01/09/2024 requested a completed drug specific form to be completed, signed by provider faxed. Copy placed on MQ bin in the [place] location to review, sign. Angely Goldsmith LPN * Telephone Encounter - Roya Jaramilol LPN - 01/03/2024 3:39 PM EST Signed [...] Thank you. GRISELDA Jasmine documented in this encounterSelect Medical Specialty [facility] [place]02-22-2024 Instructions* Patient Instructions* Ftauma Beckford PA-C - 12/26/2023 10:12 AM EST [...] office for further instructions. documented in this encounterSelect Medical Specialty [facility] [place]02-22-2024 History of Present illness Narrative* Fatuma Beckford [...] for migraine Informed Consent Consent Obtained: Written Wilmot Protocol A moment to CARE was completed [...] applicable Written Consent Obtained: Written LOT #: [id number] Expiration Date: Month: Year: 2025 Second vial: LOT #: [id number] Expiration Date: Month: Year: 2025 Injection Sites Left (Units) Left (Sites) Right (Units) Right (Sites) TOTAL (Units) Eligibility Worker 5 1 5 1 10 Procerus Units: [...] appointment. Fatuma Beckford PA-C documented in this encounterSelect Medical [facility]ty [facility] [place]02-05-2024 Miscellaneous Notes* Telephone Encounter - Nirmala Storey LPN - 12/09/2023 6:36 PM EST Faxed to [facility]. * Telephone Encounter - Ivette Grimes MD - 12/09/2023 6:04 PM EST Order placed * Telephone Encounter - Nirmala Storey LPN - 12/09/2023 5:48 PM EST Please file mammo. For [facility] need to be mammo with jaquelin. After filed please fax to [facility] for patient. documented in this encounterSelect Medical [facility]ty [facility] [place]02-05-2024 History of Present illness Narrative* Ivette Grimes MD - 12/09/2023 5:29 PM EST Patient presents with: Diabetes HPI: Patient presents today for office visit for follow up. Hb was ok per [facility] lab Still has menses. DM:not checking. Sugars [...] for 180 days. Take one poqhs Ipratropium Kiln (ATROVENT) 21 mcg (0.03 %) nasal spray [...] 1 Each by INTRAUTERINE route as directed. Dazey-3 Fatty Acids (FISH OIL) 500 mg cap Take 1 capsule by mouth once daily. blood sugar diagnostic (BLOOD GLUCOSE TEST) test strip Test blood sugar(s) 1 times daily. Dx: Type 2 DM - Controlled E11.9 Insulin: Yes Lancets lancets Test blood sugar(s) 1 times daily. Dx: Type 2 DM - Controlled E11.9 Insulin: No Lprgkngo-Yf-Meg-Fe-FA tab Take 1 tablet by mouth once [...] Age of Onset Alcohol/Drug Mother Heart Father NH Cancer Father PANCREATIC CANCER Diabetes Father Coronary [...] - stable. Ivette Grimes documented in this encounterSelect [facility] [place]12-24-[facility]23 Discharge summary Author Luan Zepeda [facility] October 27, 2023 3:44pm Note Date/Time October 27, 2023 3:16pm [facility] Medical Records Department [address] [place] [id number] Emergency Department Summary 10/27/23 MR#: [id number] Acct: [id number] Name: TORI GRAY Rep #:[id number] : 1980 43 From: Luan Barry PCP: [...] %) nasal spray 2 spray intranasal BID qyxxwnfxa64/20/20 [History Last Taken 08/03/23] omega-3 fatty acids [...] problems, contact your Primary Care Provider. Call [employer] [facility] ([phone]) or report to the closest Emergency Room. Call 911 if necessary. 10/27/23 9169 <Electronically signed by Luan Zepeda DO> Cosigner Signature (if applicable): CC: Dr. Ivette Grimes MD ~ Signed [facility] Work Phone: 1(318) 740-337812-12-2023 Miscellaneous Notes* Telephone Encounter - Fatuma Beckford PA-C - 10/15/2023 8:13 AM EST Patient was given three month supply on 09/13/23 documented in this encounterSelect Medical [facility] [place]12-11-2023 Miscellaneous Notes* Telephone Encounter - Quinn Lazo - 10/14/2023 1:43 PM EST Patient phones requesting refills as follows: Requested Prescriptions Pending Prescriptions Disp Refills topiramate (TOPAMAX) 100 mg tablet 60 tablet 5 Sig: Take 1 tablet by mouth two times a day. APRIL 07/15/23 NOV 12/09/23 Please review and advise. Quinn Lazo documented in this encounterSelect Medical [facility] [place]12-11-2023 Miscellaneous Notes* Telephone Encounter - Adriana Swanson [...] (Not on refill list). Please send to [facility] pharmacy. TY documented in this encounterSelect Medical Special[facility] [place]11-21-2023 Miscellaneous Notes* Telephone Encounter - Ry Wang - 09/24/2023 8:20 AM EST Patient's request for medication is as follows: Requested Prescriptions Pending Prescriptions Disp Refills FLUoxetine (PROZAC) 20 mg capsule 90 capsule 0 Sig: Take 1 capsule by mouth once daily. Prescription(s) as above. Please process accordingly. Ry Wang documented in this [facility]11-06-2023 Miscellaneous Notes* Telephone Encounter - Quinn Lazo - 09/09/2023 1:21 PM EST Patient phones requesting refills as follows: Requested Prescriptions Pending Prescriptions Disp Refills ZOLMitriptan (ZOMIG) 5 mg tablet 9 tablet 11 Sig: Take 1 tablet (5 mg) by mouth once daily. prn APRIL 07/15/23 NOV 12/09/23 Please review and advise. Quinn Lazo documented in this [facility]10-23-2023 Miscellaneous Notes* Telephone Encounter - Nakia Caraballo RN - 08/26/2023 11:58 AM EDT Patient scheduled for 09/13/23 at 2 pm for botox. Latonia Caraballo RN, BSN documented in this encounterSelect Medical [facility] [place]10-20-2023 Miscellaneous Notes* Telephone Encounter - Nirmala Storey LPN - 08/23/2023 2:40 PM EDT Completed and faxed as requested. * Telephone Encounter - Dennise Robles - 08/20/2023 11:55 AM EDT Type of form: 2023 Healthy living program Form received via mail When form is completed, Fax form to [phone] Form has been forwarded to Physician Desk: Dr. Sydney Robles documented in this encounterSelect Medical [facility] [place]09-01-2023 Miscellaneous Notes* Telephone Encounter - Quinn Lazo [...] advise. Quinn Lazo LPN documented in this encounterSelect Medical Specialty [facility] [place]09-01-2023 Miscellaneous Notes* Telephone Encounter - Jenni Zaman - 07/05/2023 8:25 AM EDT Patient has been identified by name and date of : Yes, Provider [facility] Pharmacy phones for refill(s): Requested Prescriptions [...] Thank you. Jenni Zaman documented in this encounterSelect Medical Specialty [facility] [place]08-16-2023 History of Present illness Narrative* Rosetta Dias [...] mouth every 8 hours as needed. Ipratropium Kiln (ATROVENT) 21 mcg (0.03 %) nasal spray [...] 1 Each by INTRAUTERINE route as directed. Dazey-3 Fatty Acids (FISH OIL) 500 mg cap Take 1 capsule by mouth once daily. Lancets lancets Test blood sugar(s) 1 times daily. Dx: Type 2 DM - Controlled E11.9 Insulin: No Hiwlmmyu-Ne-Kuk-Fe-FA tab Take 1 tablet by mouth once [...] Age of Onset Alcohol/Drug Mother Heart Father NH Cancer Father PANCREATIC CANCER Diabetes Father Coronary [...] Stein DPM Podiatry [address] [facility] [address] Dept: [phone] Dept * Keri Parker RN - 06/19/2023 [...] developed left foot pain documented in this encounterSelect Medical Specialty [facility] [place]08-16-2023 Instructions* Patient Instructions* Umesh Delgado - 06/19/2023 [...] time on their feet, such as nurses, ciso/waiters, andmail carriers, often experience plantar fasciitis. Athletes [...] choose the one that fits the best. [place] with your athletic shoes to find a [...] Can purchase at [employer] here in [place], [employer] in [place] or [employer]. Also can find in [employer] in [facility]. [employer] can also be purchased online, starting [...] everything fits well together documented in this encounterSelect Medical Specialty [facility] [place]08-04-2023 History of Present illness Narrative* Ivette Price [...] migraine, would like to go back to [place], noted that I do botox in this location and patient would like to transfer. EEG completed 04/02/23 at [facility] and per report, normal. Pt reports that [...] 2 weeks ago - was working at [employer] and tubs of butter fell and hit her on the right side of the head. Pt states hurt the next day but then felt better. Did not seek medical attention. But then states went to [facility] ER where they did a CT scan [...] mouth every 8 hours as needed. Ipratropium Kiln (ATROVENT) 21 mcg (0.03 %) nasal spray [...] 2 DM - Controlled E11.9 Insulin: No Dujqmstt-Rx-Vph-Fe-FA tab Take 1 tablet by mouth once daily. FLUoxetine (PROZAC) 20 mg capsule Take 1 capsule by mouth once daily. Dazey-3 Fatty Acids (FISH OIL) 500 mg cap [...] Age of Onset Alcohol/Drug Mother Heart Father NH Cancer Father PANCREATIC CANCER Diabetes Father Coronary [...] time. Follow up after evaluation by neuro [facility]. Ivette Price MD I spent a total of 42 minutes on the date of the service which included preparing to see the patient, rtqr-vx-jkkm patient care, completing clinical documentation, obtaining and/or [...] of your PCP/referring physician. documented in this encounterSelect Medical Specialty [facility] [place]08-03-2023 History of Present illness Narrative* Ivette Grimes [...] eps and given ok to continue. Seeing [place] cardiology. Feeling well overall MEDICATIONS: Current Outpatient Medications Medication Sig tiZANidine (ZANAFLEX) 4 mg tablet Take 1 tablet by mouth every 8 hours as needed. Ipratropium Kiln (ATROVENT) 21 mcg (0.03 %) nasal spray [...] 1 Each by INTRAUTERINE route as directed. Dazey-3 Fatty Acids (FISH OIL) 500 mg cap Take 1 capsule by mouth once daily. blood sugar diagnostic (BLOOD GLUCOSE TEST) test strip Test blood sugar(s) 1 times daily. Dx: Type 2 DM - Controlled E11.9 Insulin: Yes (Patient not taking: Reported on 05/28/2023) Lancets lancets Test blood sugar(s) 1 times daily. Dx: Type 2 DM - Controlled E11.9 Insulin: No Xulamtjq-Lk-Vst-Fe-FA tab Take 1 tablet by mouth once [...] Age of Onset Alcohol/Drug Mother Heart Father NH Cancer Father PANCREATIC CANCER Diabetes Father Coronary [...] RTO in six months documented in this encounterSelect Medical [facility] [place]07-26-2023 History of Present illness Narrative* Isiah Funes APRN.CNP - 05/29/2023 4:38 PM EDT Boot provided, see yesterdays addended noted. documented in this encounterSelect Medical Specialty [facility] [place]07-26-2023 Miscellaneous Notes* Telephone Encounter - Priscila France [...] boot. Please call Pt. documented in this encounterSelect Medical Specialty [facility] [place]07-17-2023 Discharge summary Author Sam Pearl [facility] May 20, 2023 10:36pm Note Date/Time May 20, 2023 10:3 6pm [facility] Medical Records Department [address] [place] [address] Emergency Department Summary 05/20/23 MR#: [id number] Acct: [id number] Name: TORI GRAY Rep #:[id number] : 1980 42 From: Sam Pearl MD PCP: Dr. Ivette Grimes MD Status:PRE E R Location: ED HPI History of Present Illness Chief Complaint: Head Injury Informant: patient Onset/Context/Timing Onset: Hours (1.5) Mechanism/Context: Blunt Injury Narrative Narrative: Patient states she was working at a [employer], it was almost closing time, she was [...] #10 ea 04/26/20 [History Last Taken Unknown] gebiyawu-hpl-Uw-FA 1 mg capsule 1 cap PO DAILY [...] Normal speech. Can name and remember objects. [place] Coma Scale: document GCS findings Spontaneous Obeys [...] restrictions temporarily. NEXUS Head CT Instrument from [employer] on 05/20/2023 All calculations should be rechecked [...] Age >=5 years ?> 0 = No Montenegrin CT Head Injury/Trauma Rule from [employer] on 05/20/2023 All calculations should be rechecked by clinician prior to use RESULT SUMMARY: CT Unnecessary The Montenegrin Head CT Rule suggests a head CT [...] consciousness Instructions: ED Concussion Prescriptions: No Action ndajblsz-qqh-Fo-FA 1 mg capsule 1 mg capsule 1 [...] your Primary Care Provider. Call [facility] ([phone]) or report to the closest Emergency Room. Call 911 if necessary. 05/20/232235 <Electronically signed by Sam Pearl MD> Cosign Signature (if applicable): CC: Dr. Ivette Grimes MD ~ Signed [facility] Work Phone: 1(841) 448-160907-14-2023 Instructions* Patient Instructions* Fatuma Beckford PA-C - [...] office for further instructions. documented in this encounterSelect Medical [facility] [place]07-14-2023 History of Present illness Narrative* Fatuma Beckford [...] for migraine Informed Consent Consent Obtained: Written Wilmot Protocol A moment to CARE was completed [...] applicable Written Consent Obtained: Written LOT #: [id number] Expiration Date: Month: Year: 2024 Second vial: LOT #: [id number] Expiration Date: Month: Year: 2024 Injection Sites Left (Units) Left (Sites) Right (Units) Right (Sites) TOTAL (Units) Eligibility Worker 5 1 5 1 10 Procerus Units: [...] therapy. Fatuma Beckford PA-C documented in this encounterSelect Medical [facility]ty [facility] [place]07-05-2023 Miscellaneous Notes* Telephone Encounter - Lubna Yoon [...] you. Lubna Yoon LPN documented in this encounterSelect Medical Specialty [facility] [place]06-02-2023 Miscellaneous Notes* Telephone Encounter - Nirmala Storey [...] patient. Nirmala Storey LPN documented in this encounterSelect Medical Specialty [facility] [place]05-17-2023 Miscellaneous Notes* Telephone Encounter - Nakia Caraballo RN - 03/20/2023 12:38 PM EDT Botox renewal sent to pharmacy. Will schedule at [place] once approved. Patient due 04/22/23. [facility] unchecked. Latonia Caraballo RN documented in this encounterSelect Medical Specialty [facility] [place]05-08-2023 Miscellaneous Notes* Telephone Encounter - Nakia Caraballo RN - 03/11/2023 11:01 AM EDT Patient is not due for botox until 04/22/23. Asked her which location she prefers so we can scheduleonce approved. Latonia Caraballo RN documented in this encounterSelect Medical Specialty [facility] [place]05-02-2023 Instructions* Patient Instructions* Fatuma Beckford PA-C - 03/05/2023 1:02 PM EDT Continue regimen Reach out with any new symptoms or worsening weakness Reach out to Karen about moving botox Follow up with sleep provider in three months documented in this encounterSelect Medical [facility]ty [facility] [place]05-02-2023 History of Present illness Narrative* Fatuma Beckford [...] Each by INTRAUTERINE route as directed. Ipratropium Kiln (ATROVENT) 0.03 % nasal spray Use 2 Sprays in the nose every 12 hours. Dazey-3 Fatty Acids (FISH OIL) 500 mg cap Take 1 capsule by mouth once daily. blood sugar diagnostic (BLOOD GLUCOSE TEST) test strip Test blood sugar(s) 1 times daily. Dx: Type 2 DM - Controlled E11.9 Insulin: Yes Lancets lancets Test blood sugar(s) 1 times daily. Dx: Type 2 DM - Controlled E11.9 Insulin: No Qbuafreu-Fn-Jfy-Fe-FA tab Take 1 tablet by mouth once daily. HISTORIES PAST MEDICAL HISTORY Diagnosis Date Acute cholecystitis Cholecystitis Anxiety 06/07/2014 Chronic back pain Kidney stones LETITIA treated with BiPAP Type 2 diabetes mellitus (HCC) FAMILY HISTORY Problem Relation Age of Onset Alcohol/Drug Mother Heart Father NH Cancer Father PANCREATIC CANCER Diabetes Father Coronary [...] dysarthria; comprehension, naming, repetition intact. Short and watermaster memory intact. CN: PERRL, EOMI and without [...] migraine, would like to go back to [place], noted that I do botox in this [...] which included preparing to see the patient, faqv-up-lhvv patient care, completing clinical documentation, obtaining and/or reviewing separately obtained history, performing a medically appropriate examination, counseling and educating the pat ient/family/caregiver, and ordering medications, tests, or procedures. This document has been created with the use of voice recognition technology. It may contain inaccuracies: (e.g. misspellings, inaccurate syntax or word sense) that have escaped review. documented in this encounterSelect Medical Specialty [facility] [place]05-02-2023 History of Present illness Narrative* Galina Camacho [...] L1 SAB0 IAB0 Ectopic0 Multiple0 Live Births1 Coremaker Machine History LMP: 01/02/2023 (Approximate), IUD Age at Menarche: Age at First : Age at Menopause: Coremaker Machine History Comments: Sexual Activity: Not Currently; No [...] Age of Onset Alcohol/Drug Mother Heart Father NH Cancer Father PANCREATIC CANCER Diabetes Father Coronary [...] external genitalia normal, normal Bartholin's glands, urethra, Gypsum's glands, no vulvar lesions, no cervical lesions, [...] needed Galina Camacho MD documented in this encounterSelect Medical Specialty [facility] [place]05-01-2023 Miscellaneous Notes* Telephone Encounter - Nirmala Storey [...] to Mounjaro. Please advise pt. Pharmacy is [facility]. Cary Goldsmith LPN documented in this encounterSelect Medical Specialty Hospital [facility] [place]04-28-2023 History of Present illness Narrative* Ivette Price [...] appointment. Ivette Price MD documented in this encounterSelect Medical Specialty [facility] [place]04-28-2023 Miscellaneous Notes* Telephone Encounter - Anni Sauceda Pss - 03/01/2023 9:54 AM EDT PCP requesting the patient have a follow-up with MIKE. Spoke with the patient and she wasn't able to take the time available. The patient is scheduled for a follow-up appointment with the PA. The patient is aware of the appointment. documented in this encounterSelect Medical [facility]ty [facility] [place]04-27-2023 History of Present illness Narrative* Ivette Grimes [...] Each by INTRAUTERINE route as directed. Ipratropium Kiln (ATROVENT) 0.03 % nasal spray Use 2 Sprays in the nose every 12 hours. metroNIDAZOLE (METROGEL) 0.75 % Topical Gel Apply to affected area twice daily. Dazey-3 Fatty Acids (FISH OIL) 500 mg cap Take 1 capsule by mouth once daily. blood sugar diagnostic (BLOOD GLUCOSE TEST) test strip Test blood sugar(s) 1 times daily. Dx: Type 2 DM - Controlled E11.9 Insulin: Yes Lancets lancets Test blood sugar(s) 1 times daily. Dx: Type 2 DM - Controlled E11.9 Insulin: No Ifvspqlt-Ba-Bxm-Fe-FA tab Take 1 tablet by mouth once [...] Age of Onset Alcohol/Drug Mother Heart Father NH Cancer Father PANCREATIC CANCER Diabetes Father Coronary [...] BLD Ivette Grimes MD documented in this encounterSelect Medical Specialty [facility] [place]04-27-2023 History of Present illness Narrative* Little Perez, [...] 28, 2023 8:53 AM documented in this encounterSelect Medical Specialty Hospital [facility] [place]04-26-2023 Miscellaneous Notes* Telephone Encounter - Mirna Santos [...] the provider could send her something to [facility] pharmacy just to take for tomorrow. Please call and advise. documented in this encounterSelect Medical Specialty [facility] [place]04-24-2023 Miscellaneous Notes* Telephone Encounter - Adriana Swanson [...] 02/28/23 Adriana Swanson MA documented in this encounterSelect Medical Specialty [facility] [place]04-14-2023 History of Present illness Narrative* Grace Coronel APRN.TERRITORY SALES PROFESSIONAL - 02/15/2023 3:32 PM EDT Images from [...] visit. Either the patient or their legal medical center representative has been informed of the risks [...] has been seeing a counselor at the [facility]. Has been working with him every [...] which included preparing to see the patient, zedl-xc-vxbc patient care, completing clinical documentation, and counseling and educating the patient/family/caregiver, ordering medications/labs, and communicating with other healthcare providers. Grace Coronel APRN.GABRIELA February 15, 2023 3:32 PM This note was partially generated using [employer] voice recognition system. Note was reviewed for accuracy. There may be minor misspellings or grammar miscues with [employer] voice recognition. documented in this encounterSelect Medical Specialty [facility] [place]04-12-2023 Miscellaneous Notes* Telephone Encounter - Nirmala Storey LPN - 02/13/2023 5:54 PM EDT Applyful message sent to patient. * Telephone Encounter [...] of US head/neck soft tissue received from [facility] via fax. Results scanned into Epic. (May takea few minutes before viewable in Epic.) Quinn Lazo LPN documented in this encounterSelect Medical Specialty [facility] [place]04-10-2023 Miscellaneous Notes* Telephone Encounter - Quinn Lazo LPN - 02/11/2023 1:15 PM EDT Patient phones requesting refills as follows: Requested Prescriptions Pending Prescriptions Disp Refills tiZANidine (ZANAFLEX) 4 mg tablet 20 tablet 0 Sig: Take 1 tablet by mouth every 8 hours as needed. APRIL 01/31/23 NOV 02/28/23 Please review and advise. Quinn Lazo LPN documented in this encounterSelect Medical Specialty [facility] [place]03-30-2023 Miscellaneous Notes* Telephone Encounter - Little Murphy Ma - 01/31/2023 10:31 AM EDT Faxed order to [facility] per patient's request * Telephone Encounter - Ivette Grimes MD - 01/31/2023 9:44 AM EDT While here patient has noted an intermittent lump in left neck. Slightly sore to touch. Comes andgoes. Is a nonspecific swelling on left posterior neck. Not sure is related to her fall. Will run throughregular us. Set up us at [facility]. Will run through regular insurance. documented in this encounterSelect Medical Specialty [facility] [place]03-30-2023 History of Present illness Narrative* Ivette Grimes [...] Each by INTRAUTERINE route as directed. Ipratropium Kiln (ATROVENT) 0.03 % nasal spray Use 2 Sprays in the nose every 12 hours. metroNIDAZOLE (METROGEL) 0.75 % Topical Gel Apply to affected area twice daily. Dazey-3 Fatty Acids (FISH OIL) 500 mg cap Take 1 capsule by mouth once daily. blood sugar diagnostic (BLOOD GLUCOSE TEST) test strip Test blood sugar(s) 1 times daily. Dx: Type 2 DM - Controlled E11.9 Insulin: Yes Lancets lancets Test blood sugar(s) 1 times daily. Dx: Type 2 DM - Controlled E11.9 Insulin: No Bhihwmjn-Uv-Caa-Fe-FA tab Take 1 tablet by mouth once [...] Age of Onset Alcohol/Drug Mother Heart Father NH Cancer Father PANCREATIC CANCER Diabetes Father Coronary [...] above. Ivette Grimes MD documented in this encounterSelect Medical Specialty [facility] [place]03-23-2023 NoteHNO ID: [id number] Author: Gloria Oh MA Service: ? Author Type: House Parent Type: Progress Notes Filed: 01/24/2023 11:07 AM [...] ideas. The patient is not nervous/anxious.[facility]03-23-2023 History of Present illness Narrative* Gloria [...] not included. [facility] Name: Tori Gray : 1980 Purpose: Follow-up, discuss SPRINT Today's Date: 01/24/2023 Last Visit: 11/08/2022 (OV MECHANICAL DEVELOPMENT ENGINEER) Chief complaint: LEFT shoulder pain Tori [...] was advised that they will need a hazmat cdl a driver for after the procedure and that if no hazmat cdl a driver is available and on site at the time of the procedure, the procedure will be cancelled. For any anticoagulants, the patient was advised on whether to continue or hold for this procedure. The patient expressed understanding and gave verbal consent to proceed. Medications: Refill: Continue Gabapentin as directed (PCP manages) Functional Nondenominational: Continue PT and TENs unit for pain [...] [facility] documented in this encounterSelect Medical Specialty [facility] [place]03-21-2023 Instructions* Patient Instructions* Jenni Ledesma APRN.CNP - [...] the next 5 days. documented in this encounterSelect Medical Specialty [facility] [place]03-21-2023 History of Present illness Narrative* Karen Bansal [...] for migraine Informed Consent Consent Obtained: Written Wilmot Protocol A moment to CARE was completed [...] applicable Written Consent Obtained: Written LOT #: [id number] Expiration Date: Month: 3 Year: 2024 Second vial: LOT #: [id number] Expiration Date: Month: 3 Year: 2024 Injection Sites Left (Units) Left (Sites) Right (Units) Right (Sites) TOTAL (Units) Eligibility Worker 5 1 5 1 10 Procerus Units: [...] Amitriptyline Propranolol Topiramate/ Trokendi XL Jenni Ledesma APRN.TERRITORY SALES PROFESSIONAL Attestation: I have reviewed the clinical details [...] recommendations. Karen Bansal APRN.GABRIELA documented in this encounterSelect Medical [facility]ty [facility] [place]03-16-2023 History of Past illness Narrative* Problem Noted [...] of this encounter (statuses as of 12/10/2023) [facility] [place] History of Past illness Narrative* Problem Noted [...] of this encounter (statuses as of 12/10/2023) [facility] [place] History of Past illness Narrative* Problem Noted [...] of this encounter (statuses as of 12/26/2023) [facility] [place] History of Past illness Narrative* Problem Noted [...] of this encounter (statuses as of 01/02/2024) [facility] [place] History of Past illness Narrative* Problem Noted [...] of this encounter (statuses as of 01/15/2024) [facility] [place]-16-[facility] History of Past illness Narrative* Problem Noted [...] of this encounter (statuses as of 01/23/2024) [facility] [place]-16-[facility] History of Present illness Narrative* Ivette Grimes [...] to return to 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 She feels like the back of her neck feels off. No cough or congestion. No sore throat or fever. Had a cold last week. Now better. MRI still not approved. She spoke with [employer] who states a C9 needs completed specifically [...] Each by INTRAUTERINE route as directed. Ipratropium Kiln (ATROVENT) 0.03 % nasal spray Use 2 Sprays in the nose every 12 hours. Dazey-3 Fatty Acids (FISH OIL) 500 mg cap Take 1 capsule by mouth once daily. blood sugar diagnostic (BLOOD GLUCOSE TEST) test strip Test blood sugar(s) 1 times daily. Dx: Type 2 DM - Controlled E11.9 Insulin: Yes Lancets lancets Test blood sugar(s) 1 times daily. Dx: Type 2 DM - Controlled E11.9 Insulin: No Vwgqdrzl-Mj-Ona-Fe-FA tab Take 1 tablet by mouth once [...] Age of Onset Alcohol/Drug Mother Heart Father NH Cancer Father PANCREATIC CANCER Diabetes Father Coronary [...] S19.9XXD Ivette Grimes MD documented in this encounterSelect [facility] [place]03-14-2023 NoteHNO ID: [id number] Author: Elle Rasheed MD Service: ? Author Type: Physician Type: Progress Notes Filed: 01/24/2023 11:07 AM Note Text: [facility] Name: Tori Gray : 1980 Purpose: Follow-up, discuss SPRINT Today's Date: 01/24/2023 Last Visit: 11/08/2022 (OV MECHANICAL DEVELOPMENT ENGINEER) Chief complaint: LEFT shoulder pain Tori [...] Normal Scapulothoracic (more content not included)...[facility]03-10-2023 Miscellaneous Notes* Telephone Encounter - Nirmala Storey LPN - 01/11/2023 4:42 PM EST Request is closed. An override is in effect until 01/09/24. * Telephone Encounter - Mirna Santos Ma - 01/08/2023 4:55 PM EST PA was submitted through rx benefits Mirna Santos Ma documented in this encounterSelect [facility] [place]03-09-2023 Miscellaneous Notes* Telephone Encounter - Nirmala Storey [...] patient. Nirmala Storey LPN documented in this encounterSelect Medical [facility]ty [facility] [place]03-03-2023 History of Present illness Narrative* Ivette Grimes [...] Each by INTRAUTERINE route as directed. Ipratropium Kiln (ATROVENT) 0.03 % nasal spray Use 2 Sprays in the nose every 12 hours. metroNIDAZOLE (METROGEL) 0.75 % Topical Gel Apply to affected area twice daily. Dazey-3 Fatty Acids (FISH OIL) 500 mg cap Take 1 capsule by mouth once daily. blood sugar diagnostic (BLOOD GLUCOSE TEST) test strip Test blood sugar(s) 1 times daily. Dx: Type 2 DM - Controlled E11.9 Insulin: Yes Lancets lancets Test blood sugar(s) 1 times daily. Dx: Type 2 DM - Controlled E11.9 Insulin: No Bacytiov-Ui-Ecu-Fe-FA tab Take 1 tablet by mouth once [...] Age of Onset Alcohol/Drug Mother Heart Father NH Cancer Father PANCREATIC CANCER Diabetes Father Coronary [...] R51.9 Ivette Grimes MD documented in this encounterSelect [facility] [place]02-28-2023 Miscellaneous Notes* Telephone Encounter - Little Murphy Ma - 01/01/2023 3:02 PM EST Patient never checked in for her appointments as workers comp. Sent visits to [facility] to have C9 created and faxed [...] resubmit. Hailey Leone LPN documented in this encounterSelect Medical Specialty [facility] [place]02-23-2023 Miscellaneous Notes* Telephone Encounter - Anni Sauceda Pss - 12/27/2022 2:22 PM EST Received the [facility] C9 form. The patient was seen on 12/07/2022. The appointment was attached to the patient's insurance not a WC claim. Spoke with the patient and was given the information. PCP Dr. Grimes is the physican of records per the patient. Claim# [id number] Date of injury: 11/24/2022 Nolberto Walden RN [phone] Case management: Cristina # [phone] Left Cristina a message to fax information and to call the office. Requested WC report and DX allowed * Telephone Encounter - Jovana Blackwell MA - 12/26/2022 2:12 PM EST Spoke to [facility]. Will send OV note to complete authorization of MRI order/payment of visit to [phone]. Iram is sending c9 form for provider to complete. Gave form to Anni Sauceda per Dr. Price's instructions. Jovana Blackwell MA * Telephone Encounter - Jovana Blackwell MA - 12/25/2022 10:18 AM EST TC to Iram. Unable to reach. Left detailed message on VM to return call to office & ask for atriage nurse. Please transfer to neurology back line at ext. [phone]. Jovana Blackwell MA * Telephone Encounter - Marilynn Frank LPN - 12/24/2022 3:28 PM EST Patient calling said her MRI's need to be prior authorized with Workman Vasili[employer]. Person name is lawrence number is [phone] works 8 am to 430 pm and fax number is [phone]. Patient claim number is [id number]. documented in this encounterSelect Medical [facility] [place]02-22-2023 Miscellaneous Notes* Telephone Encounter - Quinn Lazo LPN - 12/26/2022 11:41 AM EST Patient phones requesting refills as follows: Requested Prescriptions Pending Prescriptions Disp Refills tiZANidine (ZANAFLEX) 4 mg tablet 20 tablet 0 Sig: Take 1 tablet by mouth every 8 hours as needed. APRIL 12/26/22 NOV 01/04/23 Please review and advise. Quinn Lazo LPN documented in this encounterSelect Medical [facility] [place]02-22-2023 History of Present illness Narrative* Ivette Grimes [...] Each by INTRAUTERINE route as directed. Ipratropium Kiln (ATROVENT) 0.03 % nasal spray Use 2 [...] 2 DM - Controlled E11.9 Insulin: No Fqankvwp-Ta-Fzs-Fe-FA tab Take 1 tablet by mouth once daily. Dazey-3 Fatty Acids (FISH OIL) 500 mg cap [...] mirena LAPAROSCOPY SURG CHOLECYSTECTOMY 2006 Cholecystectomy, lap (Kayenta, Rowena) PAST SURGICAL HISTORY OF 2019 stent into kidney REMOVE IUD 07/13/2010 FAMILY HISTORY Problem Relation Age of Onset Alcohol/Drug Mother Heart Father NH Cancer Father PANCREATIC CANCER Diabetes Father Coronary [...] until 01/07. 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 Recheck in one week. 2. Essential (primary) hypertension - ICD9: 401.9, ICD10: I10 - good control - Continue current medication(s) - Goal of BP <130/80 Ivette Grimes MD documented in this encounterSelect Medical [facility] [place]02-20-2023 Miscellaneous Notes* Telephone Encounter - Nakia Caraballo RN - 12/24/2022 5:22 PM EST Last OV: 07/19/22 Last Refill: 08/03/22 FU OV: 01/22/23 Appropriate for refill routed to for review Latonia Caraballo RN documented in this encounterSelect Medical [facility]ty [facility] [place]02-10-2023 History of Present illness Narrative* Ivette Grimes [...] waiting to schedule those. Conflicts over at [facility] with workers comp. Injury that prompted symptoms [...] Each by INTRAUTERINE route as directed. Ipratropium Kiln (ATROVENT) 0.03 % nasal spray Use 2 Sprays in the nose every 12 hours. metroNIDAZOLE (METROGEL) 0.75 % Topical Gel Apply to affected area twice daily. Dazey-3 Fatty Acids (FISH OIL) 500 mg cap [...] 2 DM - Controlled E11.9 Insulin: No Hpogqxui-Tk-Ydu-Fe-FA tab Take 1 tablet by mouth once [...] Age of Onset Alcohol/Drug Mother Heart Father NH Cancer Father PANCREATIC CANCER Diabetes Father Coronary [...] RTO in two weeks. documented in this encounterSelect Medical [facility] [place]02-07-2023 Miscellaneous Notes* Telephone Encounter - Ingrid Salmon Ma - 12/11/2022 9:55 AM EST Last office visit: 12/07/22 F/u scheduled: 12/14/22 Ingrid Salmon Ma documented in this encounterSelect Medical [facility] [place]02-03-2023 History of Present illness Narrative* Ivette Grimes [...] view their previous records. documented in this encounterSelect Medical [facility] [place]02-03-2023 History of Present illness Narrative* Ivette Price [...] BP. Check CMP and CBC due to penitentiary med use. 3. LETITIA (obstructive sleep apnea) [...] when sleepy. 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 Patient now referred for NEW complaint of head trauma. ER notes and PCP notes reviewed. Per PCP note of 11/27/22: Patient presents today for office visit for ER F/U from [facility] 11/24/22. Head injury after fall. Cleaning bed [...] Appears pt had CT brain x2 at [facility] that were both unremarkable. Pt also previously referred to headache center to perform botox -- scheduled to get injections by January 2023. Note records show that pt has seen cards (EP) for QT prolongation concerns. Pt states on 11/24/22 was working at [facility] was doing a discharge, when bedside rail [...] Each by INTRAUTERINE route as directed. Ipratropium Kiln (ATROVENT) 0.03 % nasal spray Use 2 Sprays in the nose every 12 hours. blood sugar diagnostic (BLOOD GLUCOSE TEST) test strip Test blood sugar(s) 1 times daily. Dx: Type 2 DM - Controlled E11.9 Insulin: Yes Lancets lancets Test blood sugar(s) 1 times daily. Dx: Type 2 DM - Controlled E11.9 Insulin: No Snepwrch-Gb-Tos-Fe-FA tab Take 1 tablet by mouth once daily. metroNIDAZOLE (METROGEL) 0.75 % Topical Gel Apply to affected area twice daily. (Patient not taking: Reported on 12/07/2022) Dazey-3 Fatty Acids (FISH OIL) 500 mg cap Take 1 capsule by mouth once daily. (Patient taking differently: Take 1 tablet by mouth once daily. 1200 mg) HISTORIES PAST MEDICAL HISTORY Diagnosis Date Acute cholecystitis Cholecystitis Anxiety 06/07/2014 Chronic back pain Kidney stones LETITIA treated with BiPAP Type 2 diabetes mellitus (HCC) FAMILY HISTORY Problem Relation Age of Onset Alcohol/Drug Mother Heart Father NH Cancer Father PANCREATIC CANCER Diabetes Father Coronary [...] which included preparing to see the patient, oxmq-ks-ugji patient care, completing clinical documentation, obtaining and/or reviewing separately obtained history, performing a medically appropriate examination, counseling and educating the pat ient/family/caregiver, ordering medications, tests, or procedures, and communicating results to thepatient/family/caregiver. documented in this encounterSelect Medical [facility]ty [facility] [place]01-31-2023 Miscellaneous Notes* Telephone Encounter - Marilynn Frank LPN - 12/04/2022 9:52 AM EST [place] from [facility] calling asking for copy of 11/27/2022 office visit notes and copy of letter off work to be faxed to [phone] with claim number [id number]. Printed and faxed as requested. documented in this encounterSelect Medical [facility]ty [facility] [place]01-30-2023 Miscellaneous Notes* Telephone Encounter - Ivette Grimes [...] agreeable. Mechelle Velasquez RN documented in this encounterSelect Medical Specialty [facility] [place]01-27-2023 History of Present illness Narrative* Ivette Grimes [...] Each by INTRAUTERINE route as directed. Ipratropium Kiln (ATROVENT) 0.03 % nasal spray Use 2 Sprays in the nose every 12 hours. metroNIDAZOLE (METROGEL) 0.75 % Topical Gel Apply to affected area twice daily. Dazey-3 Fatty Acids (FISH OIL) 500 mg cap [...] 2 DM - Controlled E11.9 Insulin: No Foacdcbe-Jw-Tls-Fe-FA tab Take 1 tablet by mouth once [...] Age of Onset Alcohol/Drug Mother Heart Father NH Cancer Father PANCREATIC CANCER Diabetes Father Coronary [...] ICD10: S06.0X9A Ivette Grimes documented in this encounterSelect Medical [facility] [place]01-26-2023 Miscellaneous Notes* Telephone Encounter - Elle Rasheed [...] her appointment for 12/05/22 with you in [place] as she is not sure if this will effect her. Please advise. Darrion Shah documented in this encounterSelect Medical [facility]ty [facility] [place]01-24-[address] Callejas [facility] November 27, 2022 6:34pm Note Date/Time November 27, 2022 3 :56pm [facility] Medical Records Department [address] [place] [address] Emergency Department Summary 11/27/22 MR#: [id number] Acct: [id number] Name: TORI GRAY Rep #:[id number] : 1980 42 From: Tod Callejas MD [...] #10 ea 04/26/20 [History Last Taken Unknown] spnatrjd-hrs-Vq-FA 1 mg capsule 1 cap PO DAILY [...] concussion Instructions: ED Concussion Prescriptions: No Action zhtvvgjl-gig-Nr-FA 1 mg capsule 1 mg capsule 1 [...] your Primary Care Provider. Call [facility] ([phone]) or report to the closest Emergency Room. Call 911 if necessary. 11/27/22 6991 <Electronically signed by Tod Callejas MD> Cosigner Signature (if applicable): CC: Dr. Ivette Grimes MD ~ Signed [facility] Work Phone: [phone]) 129-791101-24-2023 History of Present illness Narrative* Ivette Grimes MD - 11/27/2022 1:48 PM EST Patient presents with: ER F/U HPI: Patient presents today for office visit for ER F/U from [facility] 11/24/22. Head injury after fall. Cleaning bed [...] Each by INTRAUTERINE route as directed. Ipratropium Kiln (ATROVENT) 0.03 % nasal spray Use 2 Sprays in the nose every 12 hours. metroNIDAZOLE (METROGEL) 0.75 % Topical Gel Apply to affected area twice daily. Dazey-3 Fatty Acids (FISH OIL) 500 mg cap [...] 2 DM - Controlled E11.9 Insulin: No Savutztc-He-Xtw-Fe-FA tab Take 1 tablet by mouth once [...] Age of Onset Alcohol/Drug Mother Heart Father NH Cancer Father PANCREATIC CANCER Diabetes Father Coronary [...] S06.0X9A Ivette Grimes MD documented in this encounterSelect Medical [facility] [place]01-20-2023 Miscellaneous Notes* Telephone Encounter - Quinn Lazo [...] advise. Quinn Lazo LPN documented in this encounterSelect Medical Specialty [facility] [place]01-12-2023 Miscellaneous Notes* Telephone Encounter - Jumana Harrell LPN - 11/15/2022 8:34 AM EST Patient phones requesting refills as follows: Requested Prescriptions Pending Prescriptions Disp Refills tiZANidine (ZANAFLEX) 4 mg tablet 20 tablet 0 Sig: Take 1 tablet by mouth every 8 hours as needed. APRIL-09/04/22 Labs-09/06/22 NOV-12/06/22 med filled 10/05/22 Please review and advise. Jumana Harrell LPN documented in this encounterSelect Medical [facility]ty [facility] [place]01-05-2023 NoteHNO ID: [id number] Author: Adelina Marinelli APRN.TERRITORY SALES PROFESSIONAL Service: ? Author Type: Nurse Practitioner Type: Progress Notes Filed: 11/08/2022 1:55 PM Note Text: [facility] [place] [facility] Today's Date: 11/08/2022 Last Visit: 07/19/22 [...] activity was identified. 11/08/2022 by Adelina Marinelli APRN.TERRITORY SALES PROFESSIONAL Allergies: ALLERGIES Allergen Reactions Lidocaine Hives Steroids [...] encounter deepali (more content not included)...[facility] 11-08-2022 NoteHNO ID: [id number] Author: Gloria Oh MA Service: ? Author Type: House Parent Type: Progress Notes Filed: 11/08/2022 1:55 PM [...] ideas. The patient is not nervous/anxious.[facility]01-05-2023 Miscellaneous Notes* Telephone Encounter - Vito [...] No 9. Does this procedure require a hazmat cdl a driver? Yes If yes, has patient been notified that a hazmat cdl a driver is needed and must be present [...] COVID vaccine.) Vito Mancera documented in this encounterSelect Medical [facility]ty [facility] [place]01-05-2023 Instructions* Patient Instructions* Adelina Marinelli APRN.CNP - 11/08/2022 1:54 PM EST Activity as tolerated Use Ice and/or heat as tolerated as needed documented in this encounterSelect Medical Specialty [facility] [place]01-05-2023 History of Present illness Narrative* Adelina Marinelli APRN.CNP - 11/08/2022 1:30 PM EST Images from the original note were not included. [facility] [place] [facility] Today's Date: 11/08/2022 Last Visit: 07/19/22 [...] suspiciousactivity was identified. 11/08/2022 by Adelina Marinelli APRN.TERRITORY SALES PROFESSIONAL Allergies: ALLERGIES Allergen Reactions Lidocaine Hives Steroids [...] Continue Gabapentin as directed (PCP manages) Functional Nondenominational: Continue PT and TENs unit for pain [...] decision making from today's date. Adelina Marinelli APRN.TERRITORY SALES PROFESSIONAL Pain [facility] * Gloria Oh MA - 11/08/2022 [...] patient is not nervous/anxious. documented in this encounterSelect Medical Specialty [facility] [place]12-09-2022 Instructions* Patient Instructions* Grace Coronel APRN.CNP - [...] - Call the National Suicide Hotline at 8-783-GRKEHOR ( ) or 9-944-749-TALK (8091) - Text 9ZPRL to 478765 Medication Update: - Prozac 10 mg - take 1 capsule once daily for 7 days; then take 2 capsules once daily after that. Next appointment: --Schedule in 4 to 6 weeks or sooner if needed -- You may call the department appointment line at [phone] to schedule your appointment. -- Please call my nurse Coretta at [phone] or send me a message in [employer] with any questions or concerns between appointments. documented in this encounterSelect Medical [facility]ty [facility] [place]12-09-2022 History of Present illness Narrative* Grace Coronel [...] her. They get along well. 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 REFERRAL SOURCE: PCP - [...] report that daughter has support from her compressor assembler and therapist and has been doing better. [...] current PAP mask.) 1 Device 99 Ipratropium Kiln (ATROVENT) 0.03 % nasal spray Use 2 Sprays in the nose every 12 hours. 1 Bottle2 metroNIDAZOLE (METROGEL) 0.75 % Topical Gel Apply to affected area twice daily. 45 g 2 Dazey-3 Fatty Acids (FISH OIL) 500 mg cap Take 1 capsule by mouth once daily. 30 capsule 11 blood sugar diagnostic (BLOOD GLUCOSE TEST) test strip Test blood sugar(s) 1 times daily. Dx: Type 2 DM - Controlled E11.9 Insulin: Yes 50 Strip 11 Lancets lancets Test blood sugar(s) 1 times daily. Dx: Type 2 DM - Controlled E11.9 Insulin: No 100Each 11 Yqnnlgya-Wb-Lpd-Fe-FA tab Take 1 tablet by mouth once daily. 0 No current facility-administered medications for this visit. VITAL SIGNS: There were no vitals filed for this visit. ROS: All other systems negative. PSYCHIATRIC HISTORY: Prior Diagnosis: Generalized Anxiety Disorder, and Depression Prior Provider: No prior psychiatrist Therapist: Previously followed at the counseling center. Stopped during the pandemic. Current Rotary Slicing Machine Operator: No Last Hospitalization: Denies hospitalization. ECT: No Previous Discontinued Psychiatric Med Trials: Ativan as needed PRN. Paxil, Buspar (low dose), Wellbutrin SUBSTANCE USE HISTORY: Nicotine: None Caffeine: Mert, 1/day Alcohol: No history of use or dependence Marijuana: No history of use or dependence Cocaine: No history of use or dependence Opiods: No history of use or dependence SPIRITUALITY: Yazdanism [facility]: Tori Gray is the oldest of 2 siblings. Her brother lives in [place]. The patient was born in [place] and raised in [place], [place]. She completed Associates degree in psychology. [...] which included preparing to see the patient, ctvh-kc-mzfk patient care, completing clinical documentation, obtaining and/or reviewing separately obtained history, counseling and educating the patient/family/caregiver, ordering medications, ananth ts, or procedures, communicating with other HCPs (not separately reported), and independently interpreting results (not separately reported). ADD ON PSYCHOTHERAPY CODE : No SIGNATURE: Grace Coronel APRN.CNP PATIENT NAME: Tori Gray DATE: October 12, 2022 TIME: 8:40 AM PAGER : documented in this encounterSelect Medical Specialty [facility] [place]12-06-2022 Miscellaneous Notes* Telephone Encounter - Mariaa Ambrosio, [place] - 10/09/2022 8:44 AM EST Patient has been identified by name and date of : Yes Patient phones for refill(s): Requested Prescriptions Pending Prescriptions Disp Refills topiramate (TOPAMAX) 100 mg tablet 60 tablet 2 Sig: Take 1 tablet by mouth twice daily. Date of last office visit in primary care: [facility] 07/19/2022 with Karen Bansal APRN.CNP No appointment scheduled [facility] Notes: Plan: All options for treatment [...] Thank you. LEVAR Jasmine documented in this encounterSelect Medical Special[facility] [place]12-02-2022 Miscellaneous Notes* Telephone Encounter - Quinn Lazo LPN - 10/05/2022 8:41 AM EST Patient phones requesting refills as follows: Requested Prescriptions Pending Prescriptions Disp Refills tiZANidine (ZANAFLEX) 4 mg tablet 20 tablet 0 Sig: Take 1 tablet by mouth every 8 hours as needed. APRIL 09/04/22 NOV 11/01/22 Please review and advise. Quinn Lazo LPN documented in this encounterSelect Medical [facility] [place]11-29-2022 Miscellaneous Notes* Telephone Encounter - Adriana Licona [...] can do? Adriana Licona documented in this [facility]11-16-2022 Miscellaneous Notes* Telephone Encounter - Lubna [...] you. Lubna Yoon LPN documented in this encounterSelect Medical Specialty [facility] [place]11-09-2022 History of Present illness Narrative* [place] Tesfaye - 09/12/2022 1:57 PM EST BEHAVIORAL HEALTH SOCIAL WORK QUICK NOTE Provider Action/FYI Needs appointment scheduled with Grace Coronel CNP. Will forward chart to Grace and her PRODUCTION CONTROLLER to assist with scheduling. Patient identified for [facility] from: PCP Reason for referral: [facility] Behavioral Health Resources: Psychiatry med management;Psychology - talk therapy [facility] encounter type: Chart Review Attempts to Outreach: 1 attempt Referral made: Psychiatry - Internal;Psychology - External;Psychology - Internal Psychiatry-Internal referral type: Medication Management Psychology-Internal referral type: Therapy Psychology-External referral type: Therapy Reason for external referral: Wait times at [facility] too long Final Disposition: Resources given Patient Discharged?: Yes Patient reported that caregiver was able to meet their needs today?: N/A Pt identified by name and . Patient interested in [facility], specifically Grace Coronel CNP at therequest of pt's PCP. SW will route chart to Grace and her nurse, Coretta Spain who can assist with patient scheduling. Patient states she's on a wait list for counseling at agencies near her home. No needs further from this SW at this time. [place] Tesfaye, ACM-PARK documented in this encounterSelect Medical Specialty [facility] [place]11-09-2022 Miscellaneous Notes* Addendum Note - Ivette Grimes MD - 09/12/2022 1:19 PM ESTAddended by: IVETTE GRIMES on: 09/12/2022 01:19 PM Modules accepted: Orders * Telephone Encounter - Ivette Grimes MD - 09/12/2022 1:18 PM EST Needs set up with Grace documented in this encounterSelect Medical Specialty [facility] [place]11-03-2022 Miscellaneous Notes* Telephone Encounter - Nakia Caraballo RN - 09/06/2022 12:44 PM EDT Patient is scheduled for botox on 09/13/22 at 1:30 pm with Kaylen. Latonia Caraballo RN documented in this encounterSelect Medical Specialty [facility] [place]11-01-2022 Miscellaneous Notes* Telephone Encounter - Jovana Blackwell MA - 09/04/2022 3:01 PM EDT Clarified with patient [facility] will be receiving 2 new providers able to administer injections. Patient will continue with plan to stay within [facility] for injections & just follow up in [place] when neuro providers are available to schedule. Jovana Blackwell MA documented in this encounterSelect Medical [facility] [place]11-01-2022 History of Past illness Narrative* Problem Noted [...] of this encounter (statuses as of 09/04/2022) [facility] History of Past illness Narrative* Problem Noted [...] of this encounter (statuses as of 09/04/2022) [facility] History of Past illness Narrative* Problem Noted [...] of this encounter (statuses as of 09/06/2022) [facility] History of Past illness Narrative* Problem Noted [...] of this encounter (statuses as of 09/07/2022) [facility] History of Past illness Narrative* Problem Noted [...] of this encounter (statuses as of 09/12/2022) [facility] History of Past illness Narrative* Problem Noted [...] of this encounter (statuses as of 09/12/2022) [facility] [place] History of Past illness Narrative* Problem Noted [...] of this encounter (statuses as of 09/12/2022) [facility] [place]-01[facility]20[facility] History of Past illness Narrative* Problem Noted [...] of this encounter (statuses as of 09/19/2022) [facility] [place]11-01-20[facility] History of Past illness Narrative* Problem Noted [...] of this encounter (statuses as of 10/02/2022) [facility] [place] History of Past illness Narrative* Problem Noted [...] of this encounter (statuses as of 10/05/2022) [facility] [place]-01-20[facility] History of Past illness Narrative* Problem Noted [...] of this encounter (statuses as of 10/09/2022) [facility] [place]01[facility]20[facility] History of Past illness Narrative* Problem Noted [...] of this encounter (statuses as of 10/18/2022) [facility] [place]-01-20[facility] History of Past illness Narrative* Problem Noted [...] of this encounter (statuses as of 10/21/2022) [facility] [place] History of Past illness Narrative* Problem Noted [...] of this encounter (statuses as of 11/09/2022) [facility] [place]20[facility] History of Past illness Narrative* Problem Noted [...] of this encounter (statuses as of 11/15/2022) [facility] [place] History of Past illness Narrative* Problem Noted [...] of this encounter (statuses as of 11/21/2022) [facility] [place] History of Past illness Narrative* Problem Noted [...] of this encounter (statuses as of 11/23/2022) [facility] [place] History of Past illness Narrative* Problem Noted [...] of this encounter (statuses as of 11/27/2022) [facility] [place]20[facility] History of Past illness Narrative* Problem Noted [...] of this encounter (statuses as of 11/29/2022) [facility] [place]01[facility]20[facility] History of Past illness Narrative* Problem Noted [...] of this encounter (statuses as of 11/30/2022) [facility] [place] History of Past illness Narrative* Problem Noted [...] of this encounter (statuses as of 12/04/2022) [facility] [place]01[facility]20[facility] History of Past illness Narrative* Problem Noted [...] of this encounter (statuses as of 12/08/2022) [facility] [place] History of Past illness Narrative* Problem Noted [...] of this encounter (statuses as of 12/08/2022) [facility] [place] History of Past illness Narrative* Problem Noted [...] of this encounter (statuses as of 12/11/2022) [facility] [place] History of Past illness Narrative* Problem Noted [...] of this encounter (statuses as of 12/11/2022) [facility] [place] History of Past illness Narrative* Problem Noted [...] of this encounter (statuses as of 12/14/2022) [facility] [place] History of Past illness Narrative* Problem Noted [...] of this encounter (statuses as of 12/21/2022) [facility] [place] History of Past illness Narrative* Problem Noted [...] of this encounter (statuses as of 12/25/2022) [facility] [place]01[facility]20[facility] History of Past illness Narrative* Problem Noted [...] of this encounter (statuses as of 12/26/2022) [facility] [place] History of Past illness Narrative* Problem Noted [...] of this encounter (statuses as of 12/26/2022) [facility] [place] History of Past illness Narrative* Problem Noted [...] of this encounter (statuses as of 01/04/2023) [facility] [place] History of Past illness Narrative* Problem Noted [...] of this encounter (statuses as of 01/07/2023) [facility] [place] History of Past illness Narrative* Problem Noted [...] of this encounter (statuses as of 01/10/2023) [facility] [place] History of Past illness Narrative* Problem Noted [...] of this encounter (statuses as of 01/11/2023) [facility] [place] History of Past illness Narrative* Problem Noted [...] of this encounter (statuses as of 01/15/2023) [facility] [place]01[facility]20[facility] History of Past illness Narrative* Problem Noted [...] of this encounter (statuses as of 01/17/2023) [facility] [place]01[facility]20[facility] History of Past illness Narrative* Problem Noted [...] of this encounter (statuses as of 01/22/2023) [facility] [place]01[facility]20[facility] History of Past illness Narrative* Problem Noted [...] of this encounter (statuses as of 01/24/2023) [facility] [place]01[facility]20[facility] History of Past illness Narrative* Problem Noted [...] of this encounter (statuses as of 01/31/2023) [facility] [place] History of Past illness Narrative* Problem Noted [...] of this encounter (statuses as of 01/31/2023) [facility] [place] History of Past illness Narrative* Problem Noted [...] of this encounter (statuses as of 02/11/2023) [facility] [place] History of Past illness Narrative* Problem Noted [...] of this encounter (statuses as of 02/14/2023) [facility] [place] History of Past illness Narrative* Problem Noted [...] of this encounter (statuses as of 02/16/2023) [facility] [place] History of Past illness Narrative* Problem Noted [...] of this encounter (statuses as of 02/25/2023) [facility] [place] History of Past illness Narrative* Problem Noted [...] of this encounter (statuses as of 02/27/2023) [facility] [place] History of Past illness Narrative* Problem Noted [...] of this encounter (statuses as of 02/28/2023) [facility] [place] History of Past illness Narrative* Problem Noted [...] of this encounter (statuses as of 03/01/2023) [facility] [place] History of Past illness Narrative* Problem Noted [...] of this encounter (statuses as of 03/01/2023) [facility] [place] History of Past illness Narrative* Problem Noted [...] of this encounter (statuses as of 03/04/2023) [facility] [place] History of Past illness Narrative* Problem Noted [...] of this encounter (statuses as of 03/05/2023) [facility] [place]01[facility]20[facility] History of Past illness Narrative* Problem Noted [...] of this encounter (statuses as of 03/05/2023) [facility] [place] History of Past illness Narrative* Problem Noted [...] of this encounter (statuses as of 03/05/2023) [facility] [place]20[facility] History of Past illness Narrative* Problem Noted [...] of this encounter (statuses as of 03/13/2023) [facility] [place] History of Past illness Narrative* Problem Noted [...] of this encounter (statuses as of 03/20/2023) [facility] [place] History of Past illness Narrative* Problem Noted [...] of this encounter (statuses as of 03/20/2023) [facility] [place] History of Past illness Narrative* Problem Noted [...] of this encounter (statuses as of 04/05/2023) [facility] [place] History of Past illness Narrative* Problem Noted [...] of this encounter (statuses as of 05/08/2023) [facility] [place]01[facility] History of Past illness Narrative* Problem Noted [...] of this encounter (statuses as of 05/17/2023) [facility] [place] History of Past illness Narrative* Problem Noted [...] of this encounter (statuses as of 05/29/2023) [facility] [place] History of Past illness Narrative* Problem Noted [...] of this encounter (statuses as of 05/30/2023) [facility] [place] History of Past illness Narrative* Problem Noted [...] of this encounter (statuses as of 06/06/2023) [facility] [place] History of Past illness Narrative* Problem Noted [...] of this encounter (statuses as of 06/08/2023) [facility] [place] History of Past illness Narrative* Problem Noted [...] of this encounter (statuses as of 06/10/2023) [facility] [place] History of Past illness Narrative* Problem Noted [...] of this encounter (statuses as of 06/22/2023) [facility] [place] History of Past illness Narrative* Problem Noted [...] of this encounter (statuses as of 07/05/2023) [facility] [place] History of Past illness Narrative* Problem Noted [...] of this encounter (statuses as of 07/09/2023) [facility] [place] History of Past illness Narrative* Problem Noted [...] of this encounter (statuses as of 08/23/2023) [facility] [place]20[facility] History of Past illness Narrative* Problem Noted [...] of this encounter (statuses as of 08/26/2023) [facility] [place]20[facility] History of Past illness Narrative* Problem Noted [...] of this encounter (statuses as of 09/08/2023) [facility] [place]01[facility]20[facility] History of Past illness Narrative* Problem Noted [...] of this encounter (statuses as of 09/10/2023) [facility] [place] History of Past illness Narrative* Problem Noted [...] of this encounter (statuses as of 09/25/2023) [facility] [place]20[facility] History of Past illness Narrative* Problem Noted [...] of this encounter (statuses as of 10/14/2023) [facility] [place]20[facility] History of Past illness Narrative* Problem Noted [...] of this encounter (statuses as of 10/15/2023) [facility] History of Past illness Narrative* Problem Noted [...] of this encounter (statuses as of 10/16/2023) [facility]11[facility]01[facility]20[facility] History of Past illness Narrative* Problem Noted [...] of this encounter (statuses as of 12/06/2023) [facility] [place]11-01-2022 Instructions* Patient Instructions* Ivette Grimes MD - 09/04/2022 12:13 PM EDT Counseling and Psychiatry Services [facility] [address] [place], [place] [id number] *counseling [facility] [address] [facility] [address] *counseling [address] [id number] *counseling [facility] [place] [address] [place], [place] [address] *counseling and psychiatry [address] [address] *counseling [address] [address] *counseling [place] [address] [facility] [phone] *counseling [place] [address] [place] [address] *counseling [facility] [address] [place] [address] [facility] [address] [place] [address] *counseling [facility] [address] [place], [place] [id number] [facility] [address] [place], [place] [address] *counseling [facility] [address] [place] [address] [facility] [address] [facility] [place] [address] *counseling [employer] [address] [place] [address] *[facility]ing [facility] [address] [place] [address] *counseling and psychiatry [facility] [place], [facility] [address] [place], [place] [phone] *psychiatry [facility] [phone] *grief counseling, individual and groups *If you ever experience a mental health crisis please call [phone], 911, Please verify with insurance provider for coverage Provide services on a sliding fee scale for [facility]. [employer] [facility] [address]thea dinh [place], [place] [address] *Counseling [facility] [address] [place], [place] [phone] *Counseling, Psychiatry and Case Management [address] [address] *Counseling [place] [address] [place] [address] *Counseling [place] [address] [place], [place] [phone] *Counseling [place] [address] [place], [place] [address] *Counseling [place] [address] [place], [place] [phone] *Counseling/mental health and substance use treatment [facility] [address] [place], [place] [address] [place] [address] [place], [place] [address] [facility] [address] [place] [address] *Addiction services, services for victims of domestic violence and sexual assault, housing services [facility] -safe, alcohol and drug free environment [facility] [phone] *free grief services, individual and group *If you ever experience a mental health crisis please contact [phone], 911 or go to the nearest ER. Please verify with insurance provider for coverage documented [facility] [place] History of Present illness Narrative* Ivette Grimes [...] for depression. Was seen by cardiology in [place] who referred her to EPS. Appt is [...] in bed with current PAP mask. Ipratropium Kiln (ATROVENT) 0.03 % nasal spray Use 2 Sprays in the nose every 12 hours. metroNIDAZOLE (METROGEL) 0.75 % Topical Gel Apply to affected area twice daily. Dazey-3 Fatty Acids (FISH OIL) 500 mg cap Take 1 capsule by mouth once daily. blood sugar diagnostic (BLOOD GLUCOSE TEST) test strip Test blood sugar(s) 1 times daily. Dx: Type 2 DM - Controlled E11.9 Insulin: Yes Lancets lancets Test blood sugar(s) 1 times daily. Dx: Type 2 DM - Controlled E11.9 Insulin: No Helxnbwe-Lc-Eny-Fe-FA tab Take 1 tablet by mouth once [...] Age of Onset Alcohol/Drug Mother Heart Father NH Cancer Father PANCREATIC CANCER Diabetes Father Diabetes [...] treatment. Ivette Grimes MD documented [facility] [place] History of Present illness Narrative* Ivette Grimes [...] in bed with current PAP mask. Ipratropium Kiln (ATROVENT) 0.03 % nasal spray Use 2 Sprays in the nose every 12 hours. metroNIDAZOLE (METROGEL) 0.75 % Topical Gel Apply to affected area twice daily. Dazey-3 Fatty Acids (FISH OIL) 500 mg cap Take 1 capsule by mouth once daily. blood sugar diagnostic (BLOOD GLUCOSE TEST) test strip Test blood sugar(s) 1 times daily. Dx: Type 2 DM - Controlled E11.9 Insulin: Yes Lancets lancets Test blood sugar(s) 1 times daily. Dx: Type 2 DM - Controlled E11.9 Insulin: No Qspwxkzz-Vu-Iuh-Fe-FA tab Take 1 tablet by mouth once [...] Age of Onset Alcohol/Drug Mother Heart Father NH Cancer Father PANCREATIC CANCER Diabetes Father Diabetes [...] in am in person documented [facility] encounter[facility] [place] Miscellaneous Notes* Telephone Encounter - Nakia Caraballo RN - 08/21/2022 1:02 PM EDT Botox approved 08/15/22-01/30/23. Patient made aware that we will get her scheduled. Latonia Caraballo RN documented in this encounter[facility] [place] Miscellaneous Notes* Telephone Encounter - Adelina Marinelli APRN.TERRITORY SALES PROFESSIONAL - 08/08/2022 12:53 PM EDT Please advise patient insurance will not approve the RFA of her shoulder. Another option would be to repeat the LEFT scapular NB, but with steroids for a therapeutic effect. If she would like to proceed with this option please let me know and will place the order. Thank you, Adelina Marinelli APRN.TERRITORY SALES PROFESSIONAL documented in this encounterSelect [facility] [place] Miscellaneous Notes* Telephone Encounter - Brittney Huffman Pss - 08/08/2022 10:08 AM EDT Spoke with the patient she has not heard back from [place] [facility] will try them again if not able to reach them she will call [facility] back to schedule. documented in this encounterSelect [facility] [place] Miscellaneous Notes* Telephone Encounter - Karen Bansal APRN.TERRITORY SALES PROFESSIONAL - 08/03/2022 10:33 AM EDT Rizatriptan sent to pharmacy. Stop sumatriptan. * Telephone Encounter - Nakia Caraballo RN - 08/03/2022 9:03 AM EDT Patient reporting that sumatriptan is not helping migraines. Asking for another treatment. Botox referral was sent but still pending. Latonia Caraballo RN documented in this encounterSelect [facility] [place] History of Present illness Narrative* Ivette Grimes [...] her cpap. Needs new machine. Sees her audio visual facilities engineer soon. . Will be seeing cardiology. Had [...] in bed with current PAP mask. Ipratropium Kiln (ATROVENT) 0.03 % nasal spray Use 2 Sprays in the nose every 12 hours. metroNIDAZOLE (METROGEL) 0.75 % Topical Gel Apply to affected area twice daily. Dazey-3 Fatty Acids (FISH OIL) 500 mg cap Take 1 capsule by mouth once daily. blood sugar diagnostic (BLOOD GLUCOSE TEST) test strip Test blood sugar(s) 1 times daily. Dx: Type 2 DM - Controlled E11.9 Insulin: Yes Lancets lancets Test blood sugar(s) 1 times daily. Dx: Type 2 DM - Controlled E11.9 Insulin: No Ngdeqwhg-Xm-Mrr-Fe-FA tab Take 1 tablet by mouth once [...] Age of Onset Alcohol/Drug Mother Heart Father NH Cancer Father PANCREATIC CANCER Diabetes Father Diabetes [...] RTO in six months documented in this encounterSelect [facility] [place] Miscellaneous Notes* Telephone Encounter - aNkia Caraballo RN - 08/01/2022 1:21 PM EDT Botox referral sent to pharmacy. Latonia Caraballo RN documented in this encounterSelect [facility] [place]-20[facility] Miscellaneous Notes* Telephone Encounter - Dayanna Daniels [...] 07/2022 Last refill: 07/2021 documented in this encounterSelect [facility] [place]-20[facility] Instructions* Patient Instructions* Gabi Cornelius APRN.TERRITORY SALES PROFESSIONAL - 07/19/2022 2:08 PM EDT Preventative: Topamax [...] Feverfew: Feverfew is a common garden herb [place] to [place] and popular in [facility] as a treatment for disorders typically [...] pepperoni, Pickled leblanc Pods of broad jaquez (Georgian beans, Macedonian pea pods, Montenegrin (antwan) beans, saldana and navy beans Ripe [...] too muchlight. These can be obtained at [employer] or [employer]: see list above. 2. Limit use of acute treatments (rvdz-agx-jbwtuth medications, triptans, etc.) to no more than [...] and quiet environment. Relax and reduce stress. [employer] is a free félix that can instruct you on some simple relaxtionand breathing techniques. Http://[employer] is a free website that provides teaching [...] ensuing treatment plans will be released via [employer] and discussedduring your follow-up appointment. [employer]: Please ask the schedulers to give you an activation code. The main way of communication isby [employer] rather than phone lines, so if you have not signed up, please do so. [employer] is also theway that you can review your labs and testing. We are not able to contact everyone to tell them results are normal. If you do not hear back from us regarding testing you have had, it should be considered normal or within normal range. If you have any questions about the results, you are free to message us. [employer] is meant for simple questions regarding medications, possible side effects, or other simplestraight forward questions in limited sentences, rather than multiple paragraphs of discussion. [employer] is not meant for, or efficient for [...] do not comment on most testing on [facility] in a message or commentary unless there is a concern. You will not receive a message from me of the result unless there is a specific concern of the result I need you to address further in care with us or your primary medical team. Make sure to check your my chart email or félix. documented in this encounterSelect [facility] [place] History of Present illness Narrative* Karen Bansal APRN.CNP - 07/19/2022 1:00 PM EDT Images from the original note were not included. [facility] [place] General Neurology New Patient Headache Evaluation CHIEF [...] Description Onset: Early 30's. 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 Denies upon wakening. Total headache days [...] Outside imaging reviewed Lab work obtained from [facility] and reviewed Blood studies 02/07/2022 Hemoglobin A1C [...] Age of Onset Alcohol/Drug Mother Heart Father NH Cancer Father PANCREATIC CANCER Diabetes Father Diabetes [...] in bed with current PAP mask. Ipratropium Kiln (ATROVENT) 0.03 % nasal spray Use 2 Sprays in the nose every 12 hours. metroNIDAZOLE (METROGEL) 0.75 % Topical Gel Apply to affected area twice daily. Dazey-3 Fatty Acids (FISH OIL) 500 mg cap Take 1 capsule by mouth once daily. blood sugar diagnostic (BLOOD GLUCOSE TEST) test strip Test blood sugar(s) 1 times daily. Dx: Type 2 DM - Controlled E11.9 Insulin: Yes Lancets lancets Test blood sugar(s) 1 times daily. Dx: Type 2 DM - Controlled E11.9 Insulin: No Ymetsnnz-Sv-Lgp-Fe-FA tab Take 1 tablet by mouth once [...] Finger Abduction (U) 5 Finger Abduction 5 Anodiser 5 Anodiser 5 Right Lower Extremity: (of 5) Left [...] free days a month: 3 Gabi Cornelius APRN.[facility] My impression and recommendations were discussed [...] which included preparing to see the patient, frca-yi-hqra patient care, completing clinical documentation, obtaining and/or [...] recommendations. Karen Bansal APRN.GABRIELA documented in this encounterSelect [facility] [place]-2022 NoteHNO ID: [id number] Author: Adelina Marinelli APRN.CNP Service: ? Author Type: Nurse Practitioner Type: Progress Notes Filed: 07/19/2022 10:17 AM Note Text: [facility] [place] [facility] Today's Date: 07/19/2022 Last Visit: 05/24/22 [...] (A) 74 - 99 mg/dL Final Comment: Location:[facility], [address] [place] [address], [facility] The Accu-Chek Inform II glucose meter [...] activity was identified. 07/19/2022 by Adelina Marinelli APRN.TERRITORY SALES PROFESSIONAL Last Drug screen: Not Applicable Risk Assessment: [...] regional lymphad (more content not included)...[facility]09-15-2022 NoteHNO ID: [id number] Author: Tiana Cifuentes MA Service: ? Author Type: House Parent Type: Progress Notes Filed: 07/19/2022 10:17 AM [...] ideas. The patient is not nervous/anxious.[facility]09-15-2022 Miscellaneous Notes* Telephone Encounter - Pankaj [...] If yes, When and Where? [facility], currently attending (Medical Records Release needs [...] COVID vaccine.) Pankaj Murillo documented in this encounterSelect [facility] [place] Miscellaneous Notes* Telephone Encounter - Ingrid Salmon Ma - 07/10/2022 1:55 PM EDT Last office visit: 05/01/22 F/u scheduled: 08/02/22 Ingrid Salmon Ma documented in this encounterSelect [facility] [place]-30-2022 Miscellaneous Notes* Telephone Encounter - LEVAR Jasmine [...] and PM. Note, lab work obtained from [facility] and reviewed. Given persistence of headaches will [...] Thank you. LEVAR Jasmine documented in this encounterSelect Medical Specialty [facility] [place]08-19-2022 Miscellaneous Notes* Telephone Encounter - Dayanna Daniels [...] refill: 06/06/2022 20 tablets documented in this encounterSelect Medical Specialty [facility] [place]08-04-2022 Miscellaneous Notes* Telephone Encounter - LEVAR Jasmine - 06/07/2022 4:24 PM EDT Orders and APRIL Notes faxed to [facility] to service pts PAP due to compliance reports and data no longerbeing able to be pulled from device. LEVAR Jasmine documented in this encounterSelect Medical Specialty [facility] [place]08-04-2022 History of Present illness Narrative* Tara Gillette APRN.TERRITORY SALES PROFESSIONAL - 06/07/2022 3:30 PM EDT Images from the original note were not included. [facility] [place] [facility] [place] Follow-up Visit Follow-up note June 07, 2022 [...] BP. Check CMP and CBC due to penitentiary med use. 3. LETITIA (obstructive sleep apnea) [...] when sleepy. 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 Usually getting about 7 hours of sleep. [...] in bed with current PAP mask. Ipratropium Kiln (ATROVENT) 0.03 % nasal spray Use 2 Sprays in the nose every 12 hours. metroNIDAZOLE (METROGEL) 0.75 % Topical Gel Apply to affected area twice daily. Dazey-3 Fatty Acids (FISH OIL) 500 mg cap Take 1 capsule by mouth once daily. blood sugar diagnostic (BLOOD GLUCOSE TEST) test strip Test blood sugar(s) 1 times daily. Dx: Type 2 DM - Controlled E11.9 Insulin: Yes Lancets lancets Test blood sugar(s) 1 times daily. Dx: Type 2 DM - Controlled E11.9 Insulin: No Ttzmgmhx-Qt-Rtp-Fe-FA ( FORMULA) ORAL Tab Take 1 tablet [...] and pattern. Labs/studies: Outside labs reviewed from [facility] collected on 06/05/22: CBC N UA N [...] and PM. Note, lab work obtained from [facility] and reviewed. Given persistence of headaches will [...] 06/07/22 CONSULT TO [facility] Tara Gillette APRN.TERRITORY SALES PROFESSIONAL I spent a total of 30 minutes on the date of the service which included preparing to see the patient, svqs-nv-gkpx patient care, completing clinical documentation, obtaining and/or reviewing separately obtained history, performing a medically appropriate examination, counseling and educating the pat ient/family/caregiver and ordering medications, tests, or procedures. documented in this encounterSelect Medical Specialty [facility] [place]08-02-2022 Miscellaneous Notes* Addendum Note - Ivette Grimes MD - 06/05/2022 1:46 PM EDT Addended by: IVETTE GRIMES on: 06/05/2022 01:46 PM Modules accepted: Orders * Telephone Encounter - Ivette Grimes MD - 06/05/2022 1:44 PM EDT Can send lab to [facility] to be done in two weeks documented in this encounterSelect Medical Specialty [facility] [place]07-26-2022 Miscellaneous Notes* Telephone Encounter - LEVAR Jasmine [...] says she had CMP andCBC done at [facility] on 02/09. These are in pt chart. Pt asking if she needs to have labs redrawn or if the ones done in February are sufficient. Please advise. Thank you. LEVAR Jasmine documented in this encounterSelect Medical Specialty [facility] [place]07-21-2022 NoteHNO ID: [id number] Author: Adelina Marinelli APRN.TERRITORY SALES PROFESSIONAL Service: ? Author Type: Nurse Practitioner Type: Progress Notes Filed: 05/24/2022 10:08 PM Note Text: [facility] [place] [facility] Today's Date: 05/24/2022 Last Visit: 03/29/22 [...] (A) 74 - 99 mg/dL Final Comment: Location:[facility], [address] [place] [address] The Accu-Chek Inform II glucose meter has [...] greater than (more content not included)...[facility]07-21-2022 NoteHNO ID: [id number] Author: Gloria Oh MA Service: ? Author Type: House Parent Type: Progress Notes Filed: 05/24/2022 10:08 PM [...] ideas. The patient is not nervous/anxious.[facility]07-21-2022 Instructions* Patient Instructions* Adelina Marinelli APRN.CNP - 05/24/2022 11:52 AM EDT Activity as tolerated Use Ice and/or heat as tolerated as needed documented in this encounterSelect Medical Specialty [facility] [place]07-21-2022 History of Present illness Narrative* Adelina Marinelli APRN.CNP - 05/24/2022 11:28 AM EDT Images from the original note were not included. [facility] Today's Date: 05/24/2022 Last Visit: 03/29/22 Name: [...] (A) 74 - 99 mg/dL Final Comment: Location:[facility], [address] [place] [address], [place], [place], [facility] The Accu-Chek Inform II glucose meter [...] suspiciousactivity was identified. 05/24/2022 by Adelina Marinelli APRN.TERRITORY SALES PROFESSIONAL Last Drug screen: Not Applicable Risk Assessment: [...] Special Tests: Non-painful (negative) Alexandra Raymundo's, O'Ilya, aRvi's Diagnoses: (M25.512, G89.29) Chronic left shoulder pain [...] refill. UDS, NAOIC/ORT: up to date Functional Nondenominational: Physical Therapy (Land-based) Additional Studies: None Referrals: [...] decision making from today's date. Adelina Marinelli APRN.TERRITORY SALES PROFESSIONAL [facility] [place] [facility] * Gloria Oh MA - 05/24/2022 [...] patient is not nervous/anxious. documented in this encounterSelect Medical Specialty [facility] [place]07-08-2022 Miscellaneous Notes* Telephone Encounter - Livia Luna - 05/11/2022 3:17 PM EDT Left brief message asking patient to call back with any questions or concerns about a recent appointment. Livia Luna LPN May 11, 2022 3:18 PM documented in this encounterSelect Medical Specialty Hospital [facility] [place]07-07-2022 NoteHNO ID: [id number] Author: Mirna Lanza LPN Service: ? Author [...] ideas. The patient is not nervous/anxious.[facility]07-07-2022 Nurse Note* Mirna Lanza LPN - [...] tablePatient s procedure was performed in an [facility] Procedure room. Pause completed at each [...] Lanza LPN - 05/10/2022 10:03 AM EDT Crochet Beader's Name: Marilynn Are you on a blood [...] to receive one? n documented in this encounterSelect Medical Specialty [facility] [place]07-07-2022 Instructions* Patient Instructions* Mirna Lanza LPN - [...] emergency care and why. documented in this encounterSelect Medical Specialty [facility] [place]07-07-2022 NoteHNO ID: [id number] Author: Elle Rasheed MD Service: ? Author Type: Physician Type: Progress Notes Filed: 05/10/2022 11:04 AM Note Text: [facility] [place] [facility] Patient name: Tori Gray Date of : 1980 Today's date: 05/10/2022 Purpose: Ultrasound-guided injection Diagnosis: (M75.02) Adhesive capsulitis of left shoulder (primary encounter diagnosis) (M19.012) Primary osteoarthritis of left shoulder Procedure: Left Shoulder/Chest Suprascapular Nerve Block Tool Worker: Elle Rasheed M.D., M.B.A Comments: Allergy Due to the patient's reported history of allergy to Lidocaine, the following medication was substituted: Bupivacaine. Notes from [employer] 01/2020 reviewed, she had skin testing to multiple local anesthetics and steroids, without any reaction, but advised that she avoid Lidocaine where possible due to unknown negative predictive value of the tests. Other anesthetics had been used with other procedures that did not have a reaction (eg Bupivacaine). [place] protocol documentation / Pre-Procedure Checklist: ? ID [...] [facility] [place] [facility] 05-10-2022 History of Present illness Narrative* [...] 8:23 AM EDT [facility] [place] [facility] Patient name: Tori Gray Date of : 1980 Today's date: 05/10/2022 Purpose: Ultrasound-guided injection Diagnosis: (M75.02) Adhesive capsulitis of left shoulder (primary encounter diagnosis) (M19.012) Primary osteoarthritis of left shoulder Procedure: Left Shoulder/Chest Suprascapular Nerve Block Tool Worker: Elle Rasheed M.D. MStephanyB.A Comments: Allergy Due to the patient's reported history of allergy to Lidocaine, the following medication was substituted: Bupivacaine. Notes from [employer] [employer] 01/2020 reviewed, she had skin testing to multiple local anesthetics and steroids, without any reaction, but advised that she avoid Lidocaine where possible due to unknown negative predictive value of the tests. Other anesthetics had been usedwith other procedures that did not have a reaction (eg Bupivacaine). [place] protocol documentation / Pre-Procedure Checklist: ID verified [...] [facility] [place] [facility] documented in this encounterSelect Medical Specialty [facility] [place]07-05-2022 Miscellaneous Notes* Telephone Encounter - Lubna Yoon LPN - 05/08/2022 1:04 PM EDT Sent a [employer] message * Telephone Encounter - Ivette Grimes MD - 05/08/2022 12:56 PM EDT I would recommend she follow up and see one of us here. documented in this [facility]06-30-2022 Miscellaneous Notes* Telephone Encounter - Jumana [...] advise. Jumana Harrell LPN documented in this [facility]06-28-2022 Instructions* Patient Instructions* Ivette Grimes MD - 05/01/2022 3:22 PM EDT Change lyrica to every other day for three days then stop. Then start gabapentin one tab at bedtime for three days. Then one tab twice a day for three days Then one tab in am and two at night for three days. Then 2 tabs twice a day. documented in this encounterSelect Medical [facility]ty [facility] [place]06-28-2022 History of Present illness Narrative* Ivette Grimes [...] in bed with current PAP mask. Ipratropium Kiln (ATROVENT) 0.03 % nasal spray Use 2 [...] 2 DM - Controlled E11.9 Insulin: No Aghhhznx-Sp-Qqg-Fe-FA ( FORMULA) ORAL Tab Take 1 tablet by mouth once daily. Dazey-3 Fatty Acids (FISH OIL) 500 mg cap [...] Age of Onset Alcohol/Drug Mother Heart Father NH Cancer Father PANCREATIC CANCER Diabetes Father Diabetes [...] three months and prn. documented in this encounterSelect Medical [facility] [place]06-16-2022 Miscellaneous Notes* Addendum Note - Ivette Grimes MD - 04/19/2022 2:41 PM EDT Addended by: IVETTE GRIMES on: 04/19/2022 02:41 PM Modules accepted: Orders documented in this encounterSelect Medical Specialty [facility] [place]06-13-2022 Miscellaneous Notes* Telephone Encounter - Ivette Price Jr., MD - 04/16/2022 6:04 PM EDT Please contact DME ([facility]) to determine if pt qualifies for new PAP device. If so, can order a new Auto[employer]ilevel PAP. Thank you, Ivette Price MD documented in this encounterCleveland [id number] Miscellaneous Notes* Telephone Encounter - Quinn Lazo LPN - 04/16/2022 10:28 AM EDT Patient phones requesting refills as follows: Pending Prescriptions Disp Refills TIZANIDINE 4 MG TABLET 20 tablet 0 Sig: Take 1 tablet by mouth every 8 hours as needed. CRISTINA: No APRIL 02/28/22 NOV 05/01/22 Please review and advise. Quinn Lazo LPN documented in this encounterSelect Medical Specialty [facility] [place]06-06-2022 Instructions* Patient Instructions* Ivette Price Jr., MD [...] Excedrin and Tylenol use. documented in this encounterSelect Medical Specialty [facility] [place]06-06-2022 History of Present illness Narrative* Ivette Price [...] this resolves mask issues. Rx sent to [facility]. During visit, discussed with patient: the physiology [...] in bed with current PAP mask. Ipratropium Kiln (ATROVENT) 0.03 % nasal spray Use 2 Sprays in the nose every 12 hours. blood sugar diagnostic (BLOOD GLUCOSE TEST) test strip Test blood sugar(s) 1 times daily. Dx: Type 2 DM - Controlled E11.9 Insulin: Yes Lancets lancets Test blood sugar(s) 1 times daily. Dx: Type 2 DM - Controlled E11.9 Insulin: No Ystpkbjp-Nq-Hek-Fe-FA ( FORMULA) ORAL Tab Take 1 tablet by mouth once daily. metroNIDAZOLE (METROGEL) 0.75 % Topical Gel Apply to affected area twice daily. Dazey-3 Fatty Acids (FISH OIL) 500 mg cap Take 1 capsule by mouth once daily. HISTORIES PAST MEDICAL HISTORY Diagnosis Date Acute cholecystitis Cholecystitis Anxiety 06/07/2014 Type 2 diabetes mellitus (HCC) FAMILY HISTORY Problem Relation Age of Onset Alcohol/Drug Mother Heart Father [place] Cancer Father PANCREATIC CANCER Diabetes Father Diabetes [...] BP. Check CMP and CBC due to penitentiary med use. 3. LETITIA (obstructive sleep apnea) [...] when sleepy. 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 Ivette Price MD I spent a total of 40+ minutes on the date of the service which included preparing to see the patient, giop-gn-xsoc patient care, completing clinical documentation, obtaining and/or reviewing separately obtained history, performing a medically appropriate examination, counseling and educating the pa tient/family/caregiver, ordering medications, tests, or procedures, independently interpreting results (not separately reported) and communicating results to the patient/family/caregiver. documented in this encounterSelect Medical Specialty [facility] [place]06-02-2022 Miscellaneous Notes* Telephone Encounter - Helen Camacho LPN - 04/05/2022 9:51 AM EDT Last office visit 02/23/2022 documented in this encounterSelect Medical Specialty [facility] [place]05-27-2022 Miscellaneous Notes* Telephone Encounter - Milena Rico LPN - 03/30/2022 11:08 AM EDT april-- 02/28/22 Next 05/01/22 Last refill-- 03/16/22 20 with 0 refills Last labs 02/07/22 documented in this encounterSelect Medical [facility] [place]05-26-2022 Miscellaneous Notes* Telephone Encounter - Terese Cruz [...] COVID vaccine.) Terese Cruz documented in this encounterSelect Medical Specialty [facility] [place]05-26-2022 NoteHNO ID: [id number] Author: Henna Boles MA Service: ? Author Type: House Parent Type: Progress Notes Filed: 03/29/2022 11:48 AM [...] ideas. The patient is not nervous/anxious.[facility]05-26-2022 History of Present illness Narrative* Henna [...] not included. [facility] [place] [facility] Name: Tori Gray : 1980 Purpose: [...] 12/21/2021, noted she had an EMG at [facility] which was normal (Jul 2021). MRI shoulder had very minor degenerative changes. Non-surgical management was advised. 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 [...] (Meloxicam) and Lodine (Etodolac) Opioids: Vicodin or Engelhard (Hydrocodone) and Percocet (Oxycodone) Muscle Relaxants: Zanaflex [...] Referrals: No additional considerations at present Functional Nondenominational: No changes-continue current regimen Depending on response [...] [facility] [place] [facility] documented in this encounterSelect Medical Specialty [facility] [place]05-26-2022 NoteHNO ID: [id number] Author: Elle Rasheed MD Service: ? Author Type: Physician Type: Progress Notes Filed: 03/29/2022 11:48 AM Note Text: [facility] Name: Tori Gray : 1980 Purpose: New [...] 12/21/2021, noted she had an EMG at [facility] which was normal (Jul 2021). MRI shoulder had very minor degenerative changes. Non-surgical management was advised. 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 [...] (Meloxicam) and Lodine (Etodolac) Opioids: Vicodin or Engelhard (Hydrocodone) and Percocet (Oxycodone) Muscle Relaxants: Zanaflex [...] date, noted (more content not included)...[facility]05-13-2022 Miscellaneous Notes* Telephone Encounter - Helen Camacho LPN - 03/16/2022 11:14 AM EDT Patient phones requesting refills as follows: Pending Prescriptions Disp Refills TIZANIDINE 4 MG TABLET 20 tablet 0 Sig: Take 1 tablet by mouth every 8 hours as needed. CRISTINA: No Please review and advise. Helen Camacho LPN documented in this encounterSelect Medical Specialty [facility] [place]05-02-2022 Miscellaneous Notes* Telephone Encounter - LEVAR Jasmine [...] Thank you. LEVAR Jasmine documented in this encounterSelect Medical Specialty [facility] [place]04-27-2022 History of Present illness Narrative* Ivette Grimes MD - 02/28/2022 4:43 PM EDT Patient presents with: ED Follow-up HPI: Patient presents today for office visit for follow up. Nursing Notes: Nirmala Cordelia SÁNCHEZ 02/28/2022 4:42 PM Signed HOSPITAL/ER FOLLOW UP: Reason for visit: back pain/headache(different pain not her chronic pain) Pain went from lower backup to shoulders. Which facility: [facility] Date of visit: 02/27/22 Diagnosis: back pain, [...] week as well. Happened all day yesterday. [place] different than her classic disc pain. Might [...] in bed with current PAP mask. Ipratropium Kiln (ATROVENT) 0.03 % nasal spray Use 2 Sprays in the nose every 12 hours. metroNIDAZOLE (METROGEL) 0.75 % Topical Gel Apply to affected area twice daily. Dazey-3 Fatty Acids (FISH OIL) 500 mg cap Take 1 capsule by mouth once daily. blood sugar diagnostic (BLOOD GLUCOSE TEST) test strip Test blood sugar(s) 1 times daily. Dx: Type 2 DM - Controlled E11.9 Insulin: Yes Lancets lancets Test blood sugar(s) 1 times daily. Dx: Type 2 DM - Controlled E11.9 Insulin: No Jhvigsrd-Xd-Frk-Fe-FA ( FORMULA) ORAL Tab Take 1 tablet [...] Age of Onset Alcohol/Drug Mother Heart Father NH Cancer Father PANCREATIC CANCER Diabetes Father Diabetes [...] six to eight weeks documented in this encounterSelect Medical Specialty [facility] [place]04-27-2022 Nurse Note* Nirmala Storey LPN - 02/28/2022 4:36 PM EDT HOSPITAL/ER FOLLOW UP: Reason for visit: back pain/headache(different pain not her chronic pain) Pain went from lower backup to shoulders. Which facility: [facility] Date of visit: 02/27/22 Diagnosis: back pain, hypertension Testing done: CT scan and labs Treatment given: no new changes Current symptoms: mild headache still and back pain, just feels off Was just feeling off. Aching. Cold chills. Scheduled with Dr Rasheed. documented in this encounterSelect Medical [facility]ty [facility] [place]04-26-2022 Miscellaneous Notes* Telephone Encounter - Quinn Lazo LPN - 02/27/2022 12:44 PM EDT Appt scheduled. Quinn Lazo LPN documented in this encounterSelect Medical Specialty [facility] [place]04-22-2022 Miscellaneous Notes* Telephone Encounter - LEVAR Jasmine [...] Thank you. LEVAR Jasmine documented in this encounterSelect Medical Specialty [facility] [place]04-06-2022 Miscellaneous Notes* Telephone Encounter - Nirmala Storey LPN - 02/07/2022 4:09 PM EDT [employer] message sent to patient. * Telephone Encounter - Ivette Grimes MD - 02/07/2022 3:38 PM EDT Let her her know her labs look great. * Telephone Encounter - Nirmala Storey LPN - 02/07/2022 2:33 PM EDT Received lab results from [facility]. Placed on desk for review. documented in this encounterSelect Medical [facility]ty [facility] [place]04-04-2022 Miscellaneous Notes* Telephone Encounter - Tessy Wadsworth Ma - 02/05/2022 12:25 PM EDT Labs faxed within [employer] to update if there are any issues. Tessy Wadsworth Ma documented in this encounterSelect Medical [facility]ty [facility] [place]03-28-2022 Miscellaneous Notes* Telephone Encounter - Darrion Barahona [...] shoulder pain. Thank you! documented in this encounterSelect Medical Specialty [facility] [place]02-02-2013 History of Past illness Narrative* Problem Noted [...] of this encounter (statuses as of 01/30/2022) [facility] [place] History of Past illness Narrative* Problem Noted [...] of this encounter (statuses as of 02/05/2022) [facility] [place] History of Past illness Narrative* Problem Noted [...] of this encounter (statuses as of 02/07/2022) [facility] [place] History of Past illness Narrative* Problem Noted [...] of this encounter (statuses as of 02/07/2022) [facility] [place] History of Past illness Narrative* Problem Noted [...] of this encounter (statuses as of 02/08/2022) [facility] [place] History of Past illness Narrative* Problem Noted [...] of this encounter (statuses as of 02/23/2022) [facility] [place] History of Past illness Narrative* Problem Noted [...] of this encounter (statuses as of 02/27/2022) [facility] [place] History of Past illness Narrative* Problem Noted [...] of this encounter (statuses as of 02/28/2022) [facility] [place] History of Past illness Narrative* Problem Noted [...] of this encounter (statuses as of 03/05/2022) [facility] [place] History of Past illness Narrative* Problem Noted [...] of this encounter (statuses as of 03/16/2022) [facility] [place] History of Past illness Narrative* Problem Noted [...] of this encounter (statuses as of 03/29/2022) [facility] [place] History of Past illness Narrative* Problem Noted [...] of this encounter (statuses as of 03/29/2022) [facility] [place] of Past illness Narrative* Problem Noted [...] of this encounter (statuses as of 03/30/2022) [facility] [place] History of Past illness Narrative* Problem Noted Date Resolved Date Routine general medical exam ination at a health care facility 12/06/2012 02/22/2014 Routine general medical exam ination at a health care facility 01/23/2010 12/06/2012 Overview: 01/23/2010, from Dr. Whtie Routine gynecological examination 01/23/2010 02/22/2014 SACROILIITIS 05/06/2009 [...] of this encounter (statuses as of 04/05/2022) [facility] [place] History of Past illness Narrative* Problem Noted [...] of this encounter (statuses as of 04/09/2022) [facility] [place] History of Past illness Narrative* Problem Noted [...] of this encounter (statuses as of 04/10/2022) [facility] [place] of Past illness Narrative* Problem Noted [...] of this encounter (statuses as of 04/16/2022) [facility] [place] of Past illness Narrative* Problem Noted [...] of this encounter (statuses as of 04/16/2022) [facility] [place] History of Past illness Narrative* Problem Noted [...] of this encounter (statuses as of 04/19/2022) [facility] [place] of Past illness Narrative* Problem Noted [...] of this encounter (statuses as of 05/01/2022) [facility] [place] of Past illness Narrative* Problem Noted [...] of this encounter (statuses as of 05/03/2022) [facility] [place] of Past illness Narrative* Problem Noted [...] of this encounter (statuses as of 05/08/2022) [facility] [place] of [facility] Narrative* Problem Noted [...] of this encounter (statuses as of 05/10/2022) [facility] History of Past illness Narrative* Problem Noted [...] of this encounter (statuses as of 05/11/2022) [facility] History of Past illness Narrative* Problem Noted [...] of this encounter (statuses as of 05/25/2022) [facility] History of Past illness Narrative* Problem Noted [...] of this encounter (statuses as of 05/29/2022) [facility] History of Past illness Narrative* Problem Noted [...] of this encounter (statuses as of 06/05/2022) [facility] History of Past illness Narrative* Problem Noted [...] of this encounter (statuses as of 06/05/2022) [facility] History of Past illness Narrative* Problem Noted [...] of this encounter (statuses as of 06/07/2022) [facility] History of Past illness Narrative* Problem Noted Date Resolved Date Routine general medical exam ination at a health care facility 12/06/2012 02/22/2014 Routine general medical exam ination at a [facility] 01/23/2010 12/06/2012 Overview: 01/23/2010, [...] of this encounter (statuses as of 06/07/2022) [facility] History of Past illness Narrative* Problem Noted [...] of this encounter (statuses as of 06/22/2022) [facility] History of Past illness Narrative* Problem Noted [...] of this encounter (statuses as of 07/03/2022) [facility] History of Past illness Narrative* Problem Noted [...] of this encounter (statuses as of 07/10/2022) [facility] History of Past illness Narrative* Problem Noted [...] of this encounter (statuses as of 07/19/2022) [facility] History of Past illness Narrative* Problem Noted [...] of this encounter (statuses as of 07/19/2022) [facility] History of Past illness Narrative* Problem Noted [...] of this encounter (statuses as of 07/23/2022) [facility] History of Past illness Narrative* Problem Noted [...] of this encounter (statuses as of 08/01/2022) [facility] History of Past illness Narrative* Problem Noted [...] of this encounter (statuses as of 08/02/2022) [facility] History of Past illness Narrative* Problem Noted [...] of this encounter (statuses as of 08/03/2022) [facility] History of Past illness Narrative* Problem Noted [...] of this encounter (statuses as of 08/06/2022) [facility] History of Past illness Narrative* Problem Noted [...] of this encounter (statuses as of 08/08/2022) [facility] History of Past illness Narrative* Problem Noted [...] of this encounter (statuses as of 08/08/2022) [facility] History of Past illness Narrative* Problem Noted [...] of this encounter (statuses as of 08/08/2022) [facility] History of Past illness Narrative* Problem Noted [...] of this encounter (statuses as of 08/27/2022) [facility] History of Past illness Narrative* Problem Noted [...] of this encounter (statuses as of 09/03/2022) [facility] for [facility] N[facility]* Chief Complaint Back [...] dysfunction of thoracic region Disc displacement, lumbar [facility] Work Phone: Consult note Author Ankur Templeton [facility] Note Date/Time June 23, 2025 8: 58am [facility] Medical Records Department [address] [place] [id number] Anesthesia Postop Eval I 06/23/25 0857 MR#: [id number] Acct: [id number] Name: TORI GRAY Rep #:[id number] : 1980 45 From: nAkur ROJO PCP: Dr. Ivette Grimes MD Status:REG S DC Y Race: C Location: [place] [address] Anesthesia: Postop Eval I Current Vital Signs [...] CRNA Cosigner Signature: Date CC: ~ Signed [facility] Work Phone: Discharge summary Author Sam Pearl [facility] February 04, 2024 3:49am Note Date/Time February 04, 2024 2:07 am [facility] Medical Records Department [address] [place] [address] Emergency Department Summary 02/04/24 MR#: [id number] Acct: [id number] Name: TORI GRAY Rep #:[id number] : 1980 43 From: Sam Pearl MD [...] %) nasal spray 2 spray intranasal BID nrbvsdewi28/20/20 [History Last Taken 08/03/23] omega-3 fatty acids [...] Neuro Narrative: Normal speech. No aphasia. Normal [id number] and etid-yz-xafi bilaterally. No confusion. 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 She describes visual disturbance being [...] (Auto) 71.0 H Lymph % (Auto) 19.8 [place] % (Auto) 6.6 Eos % (Auto) 0.9 [...] Clarity Clear Urine pH 7.0 Ur Specific [place] 1.010 Urine Protein 15 H Urine Glucose [...] 3:17 EDT Reading Location ID and State: [facility] / [place] Tel , Service support , Discharge Plan [...] your Primary Care Provider. Call [facility] ([phone]) or report to the closest Emergency Room. Call 911 if necessary. 02/04/24 5301 <Electronically signed by Sam Pearl MD> Cosigner Signature (if applicable): CC: Dr. Ivette Grimes MD ~ Signed [facility] Work Phone: Evaluation note* Diagnosis [...] region acute Disc displacement, lumbar ch ronic [facility] Work Phone: Evaluation note* Diagnosis Upper back pain- Primary Acute midline low back pain without sciatica Type 2 diabetes mellitus with microalbuminuria, with long-term current use of insulin ([facility]) LETITIA (obstructive sleep apnea) Obstructive sleep apnea (adult) (pediatric) Lumbar disc disorder Other and unspecified disc disorder of lumbar region Elevated BP without diagnosis of hypertension [facility] Diagnosis Myofascial pain- Primary Mylagia and myositis, unspecified Chronic left shoulder pain Pain in joint, shoulder region Neuropathic pain Neuralgia, neuritis, and radiculitis, unspecified Adhesive capsulitis of left shoulder Adhesive capsulitis of shoulder Primary osteoarthritis of left shoulder Primary localized osteoarthrosis, shoulder region [facility] Diagnosis Migraine without aura and without [...] comorbidity present (HCC) [facility] Diagnosis Intractable migraine without aura and [...] comorbidity present (HCC) [facility] Diagnosis Intractable chronic migraine without aura and without status migrainosus- Primary Chronic migraine without aura, with intractable migraine, so stated, without mention of status migrainosus Mixed migraine and muscle contraction headache Migraine, unspecified, without mention of intractable migraine without mention of status migrainosus [facility] Diagnosis Onset Date Resolution Status Back [...] region acute Disc displacement, lumbar ch ronic [facility] Work Phone: Evaluation note* Diagnosis Type [...] Fatigue, unspecified type [facility] Diagnosis Onset Date Resolution Status Segmental [...] somatic dysfunction of thoracic region chronic Obesity [facility] Work Phone: Evaluation note* [...] chronic Obesity chronic Type 2 diabetes mellitus [facility] Work Phone: Evaluation note* Diagnosis Malaise- Primary Other malaise and fatigue [facility] Diagnosis Onset Date Resolution Status Back [...] region acute Disc displacement, lumbar ch ronic [facility] Work Phone: Evaluation note* Diagnosis Lightheadedness- Primary Dizziness and giddiness Essential (primary) hypertension Unspecified essential hypertension Prolonged Q-T interval on ECG Nonspecific abnormal electrocardiogram (ECG) (EKG) Type 2 diabetes mellitus with microalbuminuria, with long-term current use of insulin (HCC) Fatty liver Other chronic nonalcoholic liver disease LETITIA (obstructive sleep apnea) Obstructive sleep apnea (adult) (pediatric) [facility] Diagnosis Anxiety with depression- Primary [facility] Diagnosis Onset Date Resolution Status Back [...] region acute [facility] displacement[facility]* Diagnosis Onset [...] region acute Disc displacement, lumbar ch ronic [facility] Work Phone: Evaluation note* Diagnosis VAHE (generalized anxiety disorder)- Primary Generalized anxiety disorder Major depressive disorder, recurrent episode, moderate (HCC) Major depressive disorder, recurrent episode, moderate [facility] Diagnosis Chronic left shoulder pain- Primary Pain in joint, shoulder region Adhesive capsulitis of left shoulder Adhesive capsulitis of shoulder Neuropathic pain Neuralgia, neuritis, and radiculitis, unspecified Myofascial pain Mylagia and myositis, unspecified [facility] Diagnosis Chronic left shoulder pain- Primary Pain in joint, shoulder region Adhesive capsulitis of left shoulder Adhesive capsulitis of shoulder Chronic left shoulder pain Pain in joint, shoulder region Adhesive capsulitis of left shoulder Adhesive capsulitis of shoulder [facility] Diagnosis Microalbuminuria Proteinuria Type 2 diabetes [...] capsulitis of shoulder [facility] Diagnosis Onset Date Resolution Status Back [...] region acute Disc displacement, lumbar ch ronic [facility] Work Phone: Evaluation note* Diagnosis [...] region acute Disc displacement, lumbar ch ronic [facility] Work Phone: Evaluation note* Diagnosis Worst headache of life- Primary Headache Concussion with loss of consciousness, initial encounter Chronic left shoulder pain Pain in joint, shoulder region Adhesive capsulitis of left shoulder Adhesive capsulitis of shoulder [facility] Diagnosis Headache, unspecified headache type- Primary Concussion with loss of consciousness, initial encounter Chronic left shoulder pain Pain in joint, shoulder region Adhesive capsulitis of left shoulder Adhesive capsulitis of shoulder [facility] Diagnosis Post concussion syndrome- Primary Postconcussion [...] capsulitis of shoulder [facility] Diagnosis Headache, unspecified headache type- Primary Concussion with loss of consciousness, initial encounter Chronic left shoulder pain Pain in joint, shoulder region Adhesive capsulitis of left shoulder Adhesive capsulitis of shoulder [facility]* Diagnosis Post concussion syndrome- Primary Postconcussion syndrome Essential (primary) hypertension Unspecified essential hypertension Microalbuminuria Proteinuria Type 2 diabetes mellitus without complication, with long-term current use of insulin (HCC) Chronic left shoulder pain Pain in joint, shoulder region Adhesive capsulitis of left shoulder Adhesive capsulitis of shoulder [facility]* Diagnosis Post concussion syndrome- Primary Postconcussion syndrome Essential (primary) hypertension Unspecified essential hypertension Chronic left shoulder pain Pain in joint, shoulder region Adhesive capsulitis of left shoulder Adhesive capsulitis of shoulder [facility]* Diagnosis Post concussive syndrome- Primary Postconcussion syndrome Headache, unspecified headache type documented [facility] this encounter [facility] Diagnosis Post concussive syndrome- Primary Postconcussion syndrome Headache, unspecified headache type Injury of neck, subsequent encounter documented [facility] this encounter [facility] Diagnosis Onset Date Resolution Status Back [...] region acute Disc displacement, lumbar ch ronic [facility] Work Phone: Evaluation note* Diagnosis Intractable chronic migraine without aura and without status migrainosus- Primary Chronic migraine without aura, with intractable migraine, so stated, without mention of status migrainosus [facility] Chronic left shoulder pain- Primary Pain in joint, shoulder region Adhesive capsulitis of left shoulder Adhesive capsulitis of shoulder Neuropathic pain Neuralgia, neuritis, and radiculitis, unspecified Primary osteoarthritis of left shoulder Primary localized osteoarthrosis, shoulder region Myofascial pain Mylagia and myositis, unspecified Lumbar spondylosis Lumbosacral spondylosis without myelopathy [facility] Diagnosis Post concussive syndrome- Primary Postconcussion syndrome Headache, unspecified headache type Injury of neck, subsequent encounter [facility] Diagnosis Soft tissue mass- Primary Disorders of soft tissue, unspecified [facility] Diagnosis VAHE (generalized anxiety disorder)- Primary Generalized anxiety disorder Recurrent major depressive disorder, in full remission (HCC) [facility] Diagnosis Onset Date Resolution Status Back [...] region acute Disc displacement, lumbar ch ronic [facility] Work Phone: Evaluation note* Diagnosis Anxiety- Primary Anxiety state, unspecified [facility] Diagnosis Soft tissue mass- Primary Disorders of soft tissue, unspecified Post concussive syndrome Postconcussion syndrome Essential (primary) hypertension Unspecified essential hypertension Type 2 diabetes mellitus with microalbuminuria, with long-term current use of insulin (HCC) Headache, unspecified headache type Myalgia Mylagia and myositis, unspecified [facility] Diagnosis Post concussion syndrome- Primary Postconcussion syndrome LETITIA (obstructive sleep apnea) Obstructive sleep apnea (adult) (pediatric) [facility] Diagnosis Encounter for gynecological examination (general) (routine) without abnormal findings- Primary [facility] Diagnosis Post concussion syndrome- Primary Postconcussion syndrome LETITIA (obstructive sleep apnea) Obstructive sleep apnea (adult) (pediatric) Intractable acute post-traumatic headache Acute post-traumatic headache Altered awareness, transient Transient alteration of awareness [facility] Diagnosis Onset Date Resolution Status Back [...] region acute Disc displacement, lumbar ch ronic [facility] Work Phone: Evaluation note* Diagnosis Intractable chronic migraine without aura and without status migrainosus- Primary Chronic migraine without aura, with intractable migraine, so stated, without mention of status migrainosus Post concussive syndrome Postconcussion syndrome [facility] Diagnosis Onset Date Resolution Status Back [...] region acute Disc displacement, lumbar ch ronic [facility] Work Phone: Evaluation note* Diagnosis Foot pain, right- Primary Pain in limb documented [facility] this encounter [facility]* Diagnosis Type 2 diabetes mellitus with [...] encounter [facility]* Diagnosis Memory loss- Primary Attention and concentration deficit Attention or concentration deficit Post concussion syndrome Postconcussion syndrome Intractable migraine without aura and without status migrainosus Migraine without aura, with intractable migraine, so stated, without mention of status migrainosus LETITIA (obstructive sleep apnea) Obstructive sleep apnea (adult) (pediatric) documented [facility] Diagnosis Plantar fasciitis- Primary Plantar fascial fibromatosis Calcaneal spur of right foot Calcaneal spur [facility]* Diagnosis SOB (shortness of breath) Shortness of breath documented [facility] this encounter [facility] Diagnosis SOB (shortness of breath) Shortness of breath [facility] Diagnosis Onset Date Resolution Status Back [...] region acute Disc displacement, lumbar ch ronic [facility] Work Phone: Evaluation note* Diagnosis Post concussion syndrome Postconcussion syndrome Intractable acute post-traumatic headache Acute post-traumatic headache Dizziness Dizziness and giddiness Cervicalgia documented [facility] Diagnosis Post concussive syndrome Postconcussion syndrome Headache, unspecified headache type [facility] Diagnosis Onset Date Resolution Status Back [...] thoracic region acute Disc displacement, lumbar ch [facility] Work Phone: Evaluation note* Diagnosis [...] thoracic region acute Disc displacement, lumbar ch [facility] Work Phone: Evaluation note* Diagnosis Essential (primary) hypertension- Primary Unspecified essential hypertension LETITIA (obstructive sleep apnea) Obstructive sleep apnea (adult) (pediatric) Fatty liver Other chronic nonalcoholic liver disease Vertigo Dizziness and giddiness Anxiety Anxiety state, unspecified [facility] Diagnosis Encounter for screening mammogram for malignant neoplasm of breast- Primary Other screening mammogram [facility] Diagnosis Onset Date Resolution Status Back [...] ronic Obesity chronic LETITIA (obstructive sleep apnea) [facility] Work Phone: Evaluation note* Diagnosis Intractable chronic migraine without aura and without status migrainosus- Primary Chronic migraine without aura, with intractable migraine, so stated, without mention of status migrainosus documented [facility] this encounter [facility]* Diagnosis Onset Date Resolution Status Obesity chronic LETITIA (obstructive sleep apnea) [facility] Work Phone: Evaluation note* Diagnosis Intractable chronic migraine without aura and without status migrainosus- Primary Chronic migraine without aura, with intractable migraine, so stated, without mention of status migrainosus [facility] Diagnosis Headache, unspecified headache type documented [facility]* Diagnosis Headache, unspecified headache type [facility]* Diagnosis Left sided sciatica- Primary Sciatica Screening for depression [facility] Diagnosis Acute cough- Primary [facility]* Diagnosis Bronchitis- Primary Bronchitis, not specified as acute or chronic Type 2 diabetes mellitus with microalbuminuria, with long-term current use of insulin (HCC) Wheezing [facility]* Diagnosis Type 2 diabetes mellitus with microalbuminuria, with long-term current use of insulin (HCC)- Primary documented [facility]* Diagnosis Cough, unspecified type- Primary documented in this encounter [facility]* Diagnosis Pain of right heel Pain in limb [facility] Diagnosis Well adult exam- Primary Routine [...] Shortness of breath [facility] Diagnosis Sinobronchitis- Primary Unspecified sinusitis (chronic) Hypokalemia Hypopotassemia [facility] Diagnosis Sinobronchitis- Primary Unspecified sinusitis (chronic) [facility] Diagnosis Encounter for screening mammogram [...] Screening for depression [facility] Diagnosis Intractable chronic migraine without aura and without status migrainosus- Primary Chronic migraine without aura, with intractable migraine, so stated, without mention of status migrainosus Chronic left shoulder pain Pain in joint, shoulder region [facility] Diagnosis Intractable chronic migraine without aura and with status migrainosus- Primary Chronic migraine without aura, with intractable migraine, so stated, with status migrainosus [facility] Spasm of muscle documented in this [facility] Flank pain Abdominal pain, unspecified site documented [facility] this [facility] Diagnosis Well adult exam- Primary [...] [facility] Diagnosis LUQ pain Abdominal pain, left upper quadrant Flank pain Abdominal pain, unspecified site documented in this encounter [facility]* Diagnosis Type 2 diabetes mellitus with microalbuminuria, with long-term current use of insulin (HCC) [facility] Diagnosis Microalbuminuria Proteinuria Type 2 diabetes mellitus without complication, with long-term current use of insulin (HCC) documented in this encounter [facility] Diagnosis Microalbuminuria Proteinuria Type 2 diabetes mellitus without complication, with long-term current use of insulin (HCC) documented in this encounter [facility]* Diagnosis Sepsis due to Escherichia coli [...] of status migrainosus documented in this encounter [facility] Discharge instructionsAmbulatory Orders* Electrophysiology Location: None [facility] Work Phone: Hospital Discharge instructions Additional [...] care physician for further outpatient evaluation and management.[facility] Work Phone: Hospital Discharge instructionsAdditional Instructions [facility]: [facility] Work Phone: Progress note Author Brett Quiroga [facility] Note Date/Time August 05, 2025 9: 57am [facility] [address] [place] [address] OFFICE VISIT Date of Service: 08/05/25 MR#: [id number] Acct: [id number] Name: TORI GRAY Rep #: [id number] : 1980 Provider: Dr. Killian Quiroga MD Age/Sex: 45/F [place] [facility] Status: Signed Intake Vital Signs 07/06/25 10:30 [...] Positive Airway 07/06/25 08/05/25 Hist ory Pressure ([facility] INFORMATIONAL USE ONLY) CPAP - Continuous Positive Airway 07/06/25 08/05/25 H istory Pressure([facility] INFORMATIONAL USE ONLY) cefdinir 300 mg capsule [...] tablet 50 mg PO ONCE 08/05/2508/05 History [facility] Medical History Impingement of left shoulder Diabetes [...] Cosigner Signature: Date (if applicable) CC: ~ [facility] Work Phone: [facility] for referral (narrative)* Diagnostic Procedure Only (Routine) - Pending Review Specialty Diagnoses / Procedures Referred By Petra t Referred To Contact XR IMAGING Diagnoses Rib pain Procedures XR RIBS/CHEST 3V AP RIB/OBLS/CXR LEFT RADEX RIBS UNI W/POSTEROANT CH MINIMUM 3 VIEWS Ivette Grimes MD [address] [place] [address] Xr Imaging Referral ID Status Reason Start Date Expiration Date Visits Requested Visits Authorized [id number] Pending Review Auto-Generat ed Referral 05/01/2022 05/31/2023 1 1 [facility] for referral (narrative)* - Pending Review Specialty Diagnoses / Procedures Referred By Petra meek Referred To Contact Physical Therapy Diagnoses Chronic left shoulder pain Adhesive capsulitis of left shoulder Primary osteoarthritis of left shoulder Procedures CONSULT TO PHYSICAL THERAPY Adelina Marinelli, THOM.TERRITORY SALES PROFESSIONAL [address] [place] [address] Referral ID Status Reason Start Date Expiration Date V isits Requested Visits Authorized [id number] Pending Review 05/24/2022 08/22/2022 1 1 [facility] for referral (narrative)* Outpatient Procedure (Routine) - Closed Specialty Diagnoses / Procedures Referred By Petra meek Referred To Contact [facility] Diagnoses Prolonged Q-T interval on ECG Procedures ECG COMPLETE ECG ROUTINE ECG W/LEAST 12 LDS W/I&R Ivette Grimes MD [address] [place] [address] [facility] [place] [address] [place] [address] Referral ID Status Reason Start Date Expiration Date V isits Requested Visits Authorized [id number] Closed Auto-Generate d Referral 09/04/2022 09/04/2023 1 1 T [facility] for referral (narrative)* Diagnostic Procedure Only (Routine) - Pending Review Specialty Diagnoses / Procedures Referred By Petra meek Referred To Contact US IMAGING Diagnoses Soft tissue mass Procedures US HEAD/NECK SOFT TISSUE OTHER US SOFT TISSUE HEAD & NECK REAL TIME IMGE Ivette Charles MD [address] [place] [address] [facility] Referral ID Status Reason Start Date Expiration Date Visits Requested Visits Authorized [id number] Pending Review Auto-Generat ed Referral 01/31/2023 03/01/2024 1 1 [facility] for referral (narrative)* Outpatient Procedure (Routine) - Pending Review Specialty Diagnoses / Procedures Referred By Contac t Referred To Contact [facility] Diagnoses Altered awareness, transient Procedures EPIL EEG ROUTINE ELECTROENCEPHALOGRAM REC COMA/SLEEP ONLY Fatuma Beckford PA-C [address] [place] [address] [facility] [place] [address] [place] [address] Referral ID Status Reason Start Date Expiration Date Visits Requested Visits Authorized [id number] Pending Review Auto-Generat ed Referral 03/05/2023 03/05/2024 1 1 [facility] for referral (narrative)* Diagnostic Procedure Only (Routine) - Pending Review Specialty Diagnoses / Procedures Referred By Petra t Referred To Contact BR IMAGING Diagnoses Encounter for screening mammogram for malignant neoplasm of breast Procedures FLASH SCREENING SCREENING MAMMOGRAPHY BI 2-[place] [address] [place] [address] [facility] [address] [place] [phone] Referral ID Status Reason Start Date Expiration Date Visits Requested Visits Authorized [id number] Pending Review Auto-Generat ed Referral 06/06/2023 07/05/2024 1 1 * Transition of Care (Routine) - Ref Not Required Specialty Diagnoses / Procedures Referred By Contac t Referred To Contact Pain Management Diagnoses Chronic left shoulder pain Herniation of lumbar intervertebral disc with radiculopathy Procedures CONSULT TO PAIN MGT Ivette Grimes MD [address] [place] [address] Referral ID Status Reason Start Date Expiration Date Visits Requested Visits Authorized [id number] Ref Not Required PCP Requested Referral 06/06/2023 06/05/2024 1 1 [facility] for referral (narrative)* Diagnostic Procedure Only (Routine) - Closed Specialty Diagnoses / Procedures Referred By Vladimirac t Referred To Contact MR IMAGING Diagnoses Post concussion syndrome Intractable acute post-traumatic headache Dizziness Cervicalgia Procedures MRI CERVICAL SPINE WO IVCON MRI SPINAL CANAL CERVICAL W/O CONTRAST MATRL Ivette Price Jr., MD [address] [facility] [address] [place] [address] [place] [address] Referral ID Status Reason Start Date Expiration Date V isits Requested Visits Authorized [id number] Closed Auto-Generat ed Referral Patient Cleared - [...] CONTRAST MATERIAL Ivette Price Jr., MD [address] [facility] [address] [place] [address] [place] [address] Referral ID Status Reason Start Date Expiration Date V isits Requested Visits Authorized [id number] Closed Auto-Generat ed Referral Patient Cleared - Admin/Chairm an/Director advise to proceed or did not respond 02/26/2023 02/28/2023 1 1 [facility] for referral (narrative)* Diagnostic Procedure Only (Routine) - Pending Review Specialty Diagnoses / Procedures Referred By Petra t Referred To Contact BR IMAGING Diagnoses Encounter for screening mammogram for malignant neoplasm of breast Procedures FLASH SCREENING W JAQUELIN SCREENING DIGITAL BREAST TOMOSYNTHESIS BI SCREENING MAMMOGRAPHY BI 2-VIEW BREAST INC Ivette Rey MD [address] [place] [address] [facility] [address] [place] [address] Referral ID Status Reason Start Date Expiration Date Visits Requested Visits Authorized [id number] Pending Review Auto-Generat ed Referral 12/09/2023 01/07/2025 1 1 [facility] for referral (narrative)* Diagnostic Procedure Only (Urgent) - Closed Specialty Diagnoses / Procedures Referred By Contac t Referred To Contact XR IMAGING Diagnoses Pain of right heel Procedures XR FOOT GENERAL 3V AP/LAT/OBL RIGHT RADEX FOOT COMPLETE MINIMUM 3 VIEWS Nicole Anton PA-C [address] [place] [address] [place] [address] Referral ID Status Reason Start Date Expiration Date V isits Requested Visits Authorized [id number] Closed Auto-Generate d Referral 05/28/2023 06/26/2024 1 1 [facility] for referral (narrative)No reason for referral information [facility] N[facility]* Diagnostic Procedure Only (Routine) - Closed Specialty Diagnoses / Procedures Referred By Contac t Referred To Contact MR IMAGING Diagnoses Post concussion syndrome Intractable acute post-traumatic headache Dizziness Cervicalgia Procedures MRI CERVICAL SPINE WO IVCON MRI SPINAL CANAL CERVICAL W/O CONTRAST MATRL Ivette Price Jr., MD [address] [place] [phone] [place] [address] Referral ID Status Reason Start Date Expiration Date V isits Requested Visits Authorized [id number] Closed Auto-Generat ed Referral Patient Cleared - Admin/Chairm an/Director advise to proceed or did not respond 02/26/2023 02/28/2023 1 1 [facility] for visit Narrative* Diagnostic Procedure Only (Urgent) - Closed Specialty Diagnoses / Procedures Referred By Contac t Referred To Contact XR IMAGING Diagnoses Pain of right heel Procedures XR FOOT GENERAL 3V AP/LAT/OBL RIGHT RADEX FOOT COMPLETE MINIMUM 3 VIEWS Nicole Anton PA-C [address] [place] [address] [place] [address] Referral ID Status Reason Start Date Expiration Date V isits Requested Visits Authorized [id number] Closed Auto-Generate d Referral 05/28/2023 06/26/2024 1 1 [facility] Family History No Family History Records Found [...] Will No November 21 3:58pm Power of Client Operations Manager No November 21, 2021 3:58pm Advance Directive Response Recorded Date/ Time Advance Directives No November 21, 2021 3:58pm Living Will No February 27, 2022 10:01am Power of Client Operations Manager No February 27 10:01am Advance Directive Response Recorded Date/ Time Advance Directives No November 21, 2021 2:58pm Living Will No February 27, 2022 9:01am Power of Client Operations Manager No February 27 9:01am Advance Directive Response Recorded Date/ Time Advance Directives No November 21, 2021 2:58pm Living Will No November 24 11:49am Power of Client Operations Manager No November 24, 2022 11:49am Advance Directive Response Recorded Date/ Time Advance Directives No November 21, 2021 2:58pm Living Will No November 27 3:43pm Power of Client Operations Manager No November 27, 2022 3:43pm Advance Directive Response Recorded Date/ Time Advance Directives No November 21, 2021 3:58pm Living Will No December 03 7:35pm Power of Client Operations Manager No December 03, 2022 7:35pm Advance Directive Response Recorded Date/ Time Advance Directives No November 21, 2021 3:58pm Living Will No May 20, 2023 9:41pm Power of Client Operations Manager No May 20 9:41pm Advance Directive Response Recorded Date/ Time Advance Directives No November 21, 2021 3:58pm Living Will No August 05 9:54am Power of Client Operations Manager No August 05 9:54am Advance Directive Response Recorded Date/ Time Advance Directives No November 21, 2021 2:58pm Living Will No August 05 12:04pm Power of Client Operations Manager No August 05, 2 023 12:04pm Advance Directive Response Recorded Date/ Time Advance Directives No November 21, 2021 2:58pm Living Will No October 27, 2 023 4:06pm Power of Client Operations Manager No October 27, 2023 4:06pm Advance Directive Response Recorded Date/ Time Advance Directives No November 21, 2021 3:58pm Living Will No February 04, 2024 1:16am Power of Client Operations Manager No February 03 1:16am Advance Directive Response Recorded Date/ Time Advance Directives No October 07, 2024 8:43am Living Will No October 16, 024 10:17pm Do you have a Healthcare Power of Client Operations Manager? No October 16, 2024 10:17pm Living Will No November 11 7:01am Do you have a Healthcare Power of Client Operations Manager? No November 11, 2024 7:01am Advance Directive Response Recorded Date/ Time Advance Directives No March 09, 2025 9:20am Advance Directive Response Recorded Date/ Time Advance Directives No March 09, 2025 9:20am Do you have a Healthcare Power of Client Operations Manager? No June 10, 2025 9:08am Advance Directive Response Recorded Date/ Time Advance Directives No March 09, 2025 9:20am Do you have a Healthcare Power of Client Operations Manager? No June 10, 2025 9:08am Do you have a Healthcare Power of Client Operations Manager? No July 05, 2025 11:35pm Advance Directive Response Recorded Date/ Time Do you have a Healthcare Power of Client Operations Manager? No June 10, 2025 9:08am Do you have a Healthcare Power of Client Operations Manager? No July 05, 2025 11:35pm Advance Directives [...] migrainosus Procedures CONSULT TO HEADACHE CLINIC OFFICE/OUTPATIENT [facility] 60-74 MINUTES Tara Gillette, THOM.TERRITORY SALES PROFESSIONAL [address] [place] [id number] Referral ID Status Reason Start Date Expiration Date Visits Requested Visits Authorized [id number] Authorized PCP Requested Referral 06/07/2022 06/07/2023 1 1 Specialty Diagnoses / Procedures Referred By Petra meek Referred To Contact MR IMAGING Diagnoses Post concussion syndrome Intractable acute post-traumatic headache Dizziness Cervicalgia Procedures MRI CERVICAL SPINE WO IVCON MRI SPINAL CANAL CERVICAL W/O CONTRAST MATRL Ivette Price Jr., MD [facility] [address] [address] Mr Imaging Referral ID Status Reason Start Date Expiration Date Visits Requested Visits Authorized [id number] Pending Review Auto-Generat ed Referral 12/07/2022 01/06/2024 1 1 Specialty Diagnoses / Procedures Referred By Petra meek Referred To Contact MR IMAGING Diagnoses Post concussion syndrome Intractable acute post-traumatic headache Dizziness Cervicalgia Procedures MRI BRAIN WO IVCON MRI BRAIN BRAIN STEM W/O CONTRAST MATERIAL Ivette Price Jr., MD [address] [facility] [address] [place] [address] Mr Imaging Referral ID Status Reason Start Date Expiration Date Visits Requested Visits Authorized [id number] Pending Review Auto-Generat ed Referral 12/07/2022 01/06/2024 1 1 Specialty Diagnoses / Procedures Referred By Contac t Referred To Contact CT IMAGING Diagnoses Soft tissue mass Procedures CT NECK SOFT TISSUE W IVCON CT SOFT TISSUE NECK W/CONTRAST MATERIAL Ivette Grimes MD [address] [place] [address] [address] [address] Referral ID Status Reason Start Date Expiration Date Visits Requested Visits Authorized [id number] Pending Review Auto-Generat ed Referral 02/28/2023 03/29/2024 1 1 Specialty Diagnoses / Procedures Referred By Contac t Referred To Contact [facility] Diagnoses Post concussive syndrome Procedures CONSULT TO SPEECH THERAPY OFFICE/OUTPATIENT [facility] 60-74 MINUTES Fatuma Beckford PA-C [address] [place] [address] [facility] [place] [address] [place] [address] Referral ID Status Reason Start Date Expiration Date Visits Requested Visits Authorized [id number] Pending Review Auto-Generat ed Referral 05/17/2023 05/16/2024 1 1 Specialty Diagnoses / Procedures Referred By Contac t Referred To Contact Fatuma Beckford PA-C [address] [place] [address] Referral ID Status Reason Start Date Expiration Date Visits Re quested Visits Authorized [id number] Closed 1 1 Specialty Diagnoses / Procedures Referred By Contac t Referred To Contact Diagnoses Type 2 diabetes mellitus with microalbuminuria, with long-term current use of insulin (HCC) Ivette Grimes MD [address] [place] [address] Referral ID Status Reason Start Date Expiration Date Visits Re quested Visits Authorized [id number] Closed 1 1 Chief Complaint and Reason [...] 9:35pm HHS, 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, JOHN, ACUTE ON CARBURETOR MECHANIC TIMMY ANEMIA July 05, 2025 9:46pm Reason [...] 9:35pm HHS, 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, JOHN, ACUTE ON CARBURETOR MECHANIC TIMMY ANEMIA July 05, 2025 9:46pm HHS, 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, JOHN, ACUTE ON CARBURETOR MECHANIC TIMMY ANEMIA July 06, 2025 9:51am HHS, 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, JOHN, ACUTE ON CARBURETOR MECHANIC TIMMY ANEMIA July 07, 2025 7:19am Chief [...] 9:35pm HHS, 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, JOHN, ACUTE ON CARBURETOR MECHANIC TIMMY ANEMIA July 05, 2025 9:46pm HHS, 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, JOHN, ACUTE ON CARBURETOR MECHANIC TIMMY ANEMIA July 06, 2025 9:51am HHS, 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, JOHN, ACUTE ON CARBURETOR MECHANIC TIMMY ANEMIA July 07, 2025 7:19am left [...] 9:35pm HHS, 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, JOHN, ACUTE ON CARBURETOR MECHANIC TIMMY ANEMIA July 05, 2025 9:46pm HHS, 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, JOHN, ACUTE ON CARBURETOR MECHANIC TIMMY ANEMIA July 06, 2025 9:51am HHS, 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, JOHN, ACUTE ON CARBURETOR MECHANIC TIMMY ANEMIA July 07, 2025 7:19am left [...] 9:27am Segmental and somatic dysfunction of pel ajlil region June 17, 2025 9:27am Segmental and [...] 9:35pm HHS, 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, JOHN, ACUTE ON CARBURETOR MECHANIC TIMMY ANEMIA July 05, 2025 9:46pm HHS, 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, JOHN, ACUTE ON CARBURETOR MECHANIC TIMMY ANEMIA July 06, 2025 9:51am HHS, 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, JOHN, ACUTE ON CARBURETOR MECHANIC TIMMY ANEMIA July 07, 2025 7:19am left [...] or prosecute any alcohol or drug abuse patient.[facility] the event this information is protected by the Federal Confidentiality of Alcohol and Drug Abuse Patient Records regulations: The Federal rules restrict any use of the information to criminally investigate or prosecute any alcohol or drug abuse patient.[facility] the event this information is protected by the Federal Confidentiality of Alcohol and Drug Abuse Patient Records regulations: The Federal rules restrict any use of the information to criminally investigate or prosecute any alcohol or drug abuse patient.[facility] the event this information is protected by the Federal Confidentiality of Alcohol and Drug Abuse Patient Records regulations: The Federal rules restrict any use of the information to criminally investigate or prosecute any alcohol or drug abuse patient.[facility] the event this information is protected by the Federal Confidentiality of Alcohol and Drug Abuse Patient Records regulations: The Federal rules restrict any use of the information to criminally investigate or prosecute any alcohol or drug abuse patient.[facility] the event this information is protected by the Federal Confidentiality of Alcohol and Drug Abuse Patient Records regulations: The Federal rules restrict any use of the information to criminally investigate or prosecute any alcohol or drug abuse patient.[facility] the event this information is protected by the Federal Confidentiality of Alcohol and Drug Abuse Patient Records regulations: The Federal rules restrict any use of the information to criminally investigate or prosecute any alcohol or drug abuse patient.[facility] the event this information is protected by the Federal Confidentiality of Alcohol and Drug Abuse Patient Records regulations: The Federal rules restrict any use of the information to criminally investigate or prosecute any alcohol or drug abuse patient.[facility] the event this information is protected by the Federal Confidentiality of Alcohol and Drug Abuse Patient Records regulations: The Federal rules restrict any use of the information to criminally investigate or prosecute any alcohol or drug abuse patient.[facility] the event this information is protected by the Federal Confidentiality of Alcohol and Drug Abuse Patient Records regulations: The Federal rules restrict any use of the information to criminally investigate or prosecute any alcohol or drug abuse patient.[facility] the event this information is protected by the Federal Confidentiality of Alcohol and Drug Abuse Patient Records regulations: The Federal rules restrict any use of the information to criminally investigate or prosecute any alcohol or drug abuse patient.[facility] the event this information is protected by the Federal Confidentiality of Alcohol and Drug Abuse Patient Records regulations: The Federal rules restrict any use of the information to criminally investigate or prosecute any alcohol or drug abuse patient.[facility] the event this information is protected by the Federal Confidentiality of Alcohol and Drug Abuse Patient Records regulations: The Federal rules restrict any use of the information to criminally investigate or prosecute any alcohol or drug abuse patient.[facility] the event this information is protected by the Federal Confidentiality of Alcohol and Drug Abuse Patient Records regulations: The Federal rules restrict any use of the information to criminally investigate or prosecute any alcohol or drug abuse patient.[facility] the event this information is protected by the Federal Confidentiality of Alcohol and Drug Abuse Patient Records regulations: The Federal rules restrict any use of the information to criminally investigate or prosecute any alcohol or drug abuse patient.[facility] the event this information is protected by the Federal Confidentiality of Alcohol and Drug Abuse Patient Records regulations: The Federal rules restrict any use of the information to criminally investigate or prosecute any alcohol or drug abuse patient.[facility] the event this information is protected by the Federal Confidentiality of Alcohol and Drug Abuse Patient Records regulations: The Federal rules restrict any use of the information to criminally investigate or prosecute any alcohol or drug abuse patient.[facility] the event this information is protected by the Federal Confidentiality of Alcohol and Drug Abuse Patient Records regulations: The Federal rules restrict any use of the information to criminally investigate or prosecute any alcohol or drug abuse patient.[facility] the event this information is protected by the Federal Confidentiality of Alcohol and Drug Abuse Patient Records regulations: The Federal rules restrict any use of the information to criminally investigate or prosecute any alcohol or drug abuse patient.[facility] the event this information is protected by the Federal Confidentiality of Alcohol and Drug Abuse Patient Records regulations: The Federal rules restrict any use of the information to criminally investigate or prosecute any alcohol or drug abuse patient.[facility] the event this information is protected by the Federal Confidentiality of Alcohol and Drug Abuse Patient Records regulations: The Federal rules restrict any use of the information to criminally investigate or prosecute any alcohol or drug abuse patient.[facility] [place] the event this information is protected by the Federal Confidentiality of Alcohol and Drug Abuse Patient Records regulations: The Federal rules restrict any use of the information to criminally investigate or prosecute any alcohol or drug abuse patient.[facility] [place]In the event this information is protected by the Federal Confidentiality of Alcohol and Drug Abuse Patient Records regulations: The Federal rules restrict any use of the information to criminally investigate or prosecute any alcohol or drug abuse patient.[facility] [place]In the event this information is protected by the Federal Confidentiality of Alcohol and Drug Abuse Patient Records regulations: The Federal rules restrict any use of the information to criminally investigate or prosecute any alcohol or drug abuse patient.[facility] [place]In the event this information is protected by the Federal Confidentiality of Alcohol and Drug Abuse Patient Records regulations: The Federal rules restrict any use of the information to criminally investigate or prosecute any alcohol or drug abuse patient.[facility] [place]In the event this information is protected by the Federal Confidentiality of Alcohol and Drug Abuse Patient Records regulations: The Federal rules restrict any use of the information to criminally investigate or prosecute any alcohol or drug abuse patient.[facility] [place]In the event this information is protected by the Federal Confidentiality of Alcohol and Drug Abuse Patient Records regulations: The Federal rules restrict any use of the information to criminally investigate or prosecute any alcohol or drug abuse patient.[facility] [place]In the event this information is protected by the Federal Confidentiality of Alcohol and Drug Abuse Patient Records regulations: The Federal rules restrict any use of the information to criminally investigate or prosecute any alcohol or drug abuse patient.[facility] [place]In the event this information is protected by the Federal Confidentiality of Alcohol and Drug Abuse Patient Records regulations: The Federal rules restrict any use of the information to criminally investigate or prosecute any alcohol or drug abuse patient.[facility] [place]In the event this information is protected by the Federal Confidentiality of Alcohol and Drug Abuse Patient Records regulations: The Federal rules restrict any use of the information to criminally investigate or prosecute any alcohol or drug abuse patient.[facility] [place]In the event this information is protected by the Federal Confidentiality of Alcohol and Drug Abuse Patient Records regulations: The Federal rules restrict any use of the information to criminally investigate or prosecute any alcohol or drug abuse patient.[facility] [place]In the event this information is protected by the Federal Confidentiality of Alcohol and Drug Abuse Patient Records regulations: The Federal rules restrict any use of the information to criminally investigate or prosecute any alcohol or drug abuse patient.[facility] [place]In the event this information is protected by the Federal Confidentiality of Alcohol and Drug Abuse Patient Records regulations: The Federal rules restrict any use of the information to criminally investigate or prosecute any alcohol or drug abuse patient.[facility] [place]In the event this information is protected by the Federal Confidentiality of Alcohol and Drug Abuse Patient Records regulations: The Federal rules restrict any use of the information to criminally investigate or prosecute any alcohol or drug abuse patient.[facility] [place]In the event this information is protected by the Federal Confidentiality of Alcohol and Drug Abuse Patient Records regulations: The Federal rules restrict any use of the information to criminally investigate or prosecute any alcohol or drug abuse patient.[facility] [place]In the event this information is protected by the Federal Confidentiality of Alcohol and Drug Abuse Patient Records regulations: The Federal rules restrict any use of the information to criminally investigate or prosecute any alcohol or drug abuse patient.[facility] the event this information is protected by the Federal Confidentiality of Alcohol and Drug Abuse Patient Records regulations: The Federal rules restrict any use of the information to criminally investigate or prosecute any alcohol or drug abuse patient.[facility] [place]In the event this information is protected by the Federal Confidentiality of Alcohol and Drug Abuse Patient Records regulations: The Federal rules restrict any use of the information to criminally investigate or prosecute any alcohol or drug abuse patient.[facility] [place]In the event this information is protected by [...] or prosecute any alcohol or drug abuse patient.[facility] [place]In the event this information is protected by the Federal Confidentiality of Alcohol and Drug Abuse Patient Records regulations: The Federal rules restrict any use of the information to criminally investigate or prosecute any alcohol or drug abuse patient.[facility] [place]In the event this information is protected by the Federal Confidentiality of Alcohol and Drug Abuse Patient Records regulations: The Federal rules restrict any use of the information to criminally investigate or prosecute any alcohol or drug abuse patient.[facility] [place]In the event this information is protected by the Federal Confidentiality of Alcohol and Drug Abuse Patient Records regulations: The Federal rules restrict any use of the information to criminally investigate or prosecute any alcohol or drug abuse patient.[facility] [place]In the event this information is protected by the Federal Confidentiality of Alcohol and Drug Abuse Patient Records regulations: The Federal rules restrict any use of the information to criminally investigate or prosecute any alcohol or drug abuse patient.[facility] [place]In the event this information is protected by the Federal Confidentiality of Alcohol and Drug Abuse Patient Records regulations: The Federal rules restrict any use of the information to criminally investigate or prosecute any alcohol or drug abuse patient.[facility] [place]In the event this information is protected by the Federal Confidentiality of Alcohol and Drug Abuse Patient Records regulations: The Federal rules restrict any use of the information to criminally investigate or prosecute any alcohol or drug abuse patient.[facility] [place]In the event this information is protected by the Federal Confidentiality of Alcohol and Drug Abuse Patient Records regulations: The Federal rules restrict any use of the information to criminally investigate or prosecute any alcohol or drug abuse patient.[facility] [place]In the event this information is protected by the Federal Confidentiality of Alcohol and Drug Abuse Patient Records regulations: The Federal rules restrict any use of the information to criminally investigate or prosecute any alcohol or drug abuse patient.[facility] [place]In the event this information is protected by the Federal Confidentiality of Alcohol and Drug Abuse Patient Records regulations: The Federal rules restrict any use of the information to criminally investigate or prosecute any alcohol or drug abuse patient.[facility] [place]In the event this information is protected by the Federal Confidentiality of Alcohol and Drug Abuse Patient Records regulations: The Federal rules restrict any use of the information to criminally investigate or prosecute any alcohol or drug abuse patient.[facility] [place]In the event this information is protected by the Federal Confidentiality of Alcohol and Drug Abuse Patient Records regulations: The Federal rules restrict any use of the information to criminally investigate or prosecute any alcohol or drug abuse patient.[facility] [place]In the event this information is protected by the Federal Confidentiality of Alcohol and Drug Abuse Patient Records regulations: The Federal rules restrict any use of the information to criminally investigate or prosecute any alcohol or drug abuse patient.[facility] [place]In the event this information is protected by the Federal Confidentiality of Alcohol and Drug Abuse Patient Records regulations: The Federal rules restrict any use of the information to criminally investigate or prosecute any alcohol or drug abuse patient.[facility] [place]In the event this information is protected by the Federal Confidentiality of Alcohol and Drug Abuse Patient Records regulations: The Federal rules restrict any use of the information to criminally investigate or prosecute any alcohol or drug abuse patient.[facility] [place]In the event this information is protected by the Federal Confidentiality of Alcohol and Drug Abuse Patient Records regulations: The Federal rules restrict any use of the information to criminally investigate or prosecute any alcohol or drug abuse patient.[facility] [place]In the event this information is protected by the Federal Confidentiality of Alcohol and Drug Abuse Patient Records regulations: The Federal rules restrict any use of the information to criminally investigate or prosecute any alcohol or drug abuse patient.[facility] [place]In the event this information is protected by the Federal Confidentiality of Alcohol and Drug Abuse Patient Records regulations: The Federal rules restrict any use of the information to criminally investigate or prosecute any alcohol or drug abuse patient.[facility] [place]In the event this information is protected by the Federal Confidentiality of Alcohol and Drug Abuse Patient Records regulations: The Federal rules restrict any use of the information to criminally investigate or prosecute any alcohol or drug abuse patient.[facility] [place]In the event this information is protected by the Federal Confidentiality of Alcohol and Drug Abuse Patient Records regulations: The Federal rules restrict any use of the information to criminally investigate or prosecute any alcohol or drug abuse patient.[facility] [place]In the event this information is protected by the Federal Confidentiality of Alcohol and Drug Abuse Patient Records regulations: The Federal rules restrict any use of the information to criminally investigate or prosecute any alcohol or drug abuse patient.[facility] [place]In the event this information is protected by the Federal Confidentiality of Alcohol and Drug Abuse Patient Records regulations: The Federal rules restrict any use of the information to criminally investigate or prosecute any alcohol or drug abuse patient.[facility] [place]In the event this information is protected by the Federal Confidentiality of Alcohol and Drug Abuse Patient Records regulations: The Federal rules restrict any use of the information to criminally investigate or prosecute any alcohol or drug abuse patient.[facility] [place]In the event this information is protected by the Federal Confidentiality of Alcohol and Drug Abuse Patient Records regulations: The Federal rules restrict any use of the information to criminally investigate or prosecute any alcohol or drug abuse patient.[facility] [place]In the event this information is protected by the Federal Confidentiality of Alcohol and Drug Abuse Patient Records regulations: The Federal rules restrict any use of the information to criminally investigate or prosecute any alcohol or drug abuse patient.[facility] [place]In the event this information is protected by the Federal Confidentiality of Alcohol and Drug Abuse Patient Records regulations: The Federal rules restrict any use of the information to criminally investigate or prosecute any alcohol or drug abuse patient.[facility] [place]In the event this information is protected by the Federal Confidentiality of Alcohol and Drug Abuse Patient Records regulations: The Federal rules restrict any use of the information to criminally investigate or prosecute any alcohol or drug abuse patient.[facility] [place]In the event this information is protected by the Federal Confidentiality of Alcohol and Drug Abuse Patient Records regulations: The Federal rules restrict any use of the information to criminally investigate or prosecute any alcohol or drug abuse patient.[facility] [place]In the event this information is protected by the Federal Confidentiality of Alcohol and Drug Abuse Patient Records regulations: The Federal rules restrict any use of the information to criminally investigate or prosecute any alcohol or drug abuse patient.[facility] [place]In the event this information is protected by the Federal Confidentiality of Alcohol and Drug Abuse Patient Records regulations: The Federal rules restrict any use of the information to criminally investigate or prosecute any alcohol or drug abuse patient.[facility] [place]In the event this information is protected by the Federal Confidentiality of Alcohol and Drug Abuse Patient Records regulations: The Federal rules restrict any use of the information to criminally investigate or prosecute any alcohol or drug abuse patient.[facility] [place]In the event this information is protected by the Federal Confidentiality of Alcohol and Drug Abuse Patient Records regulations: The Federal rules restrict any use of the information to criminally investigate or prosecute any alcohol or drug abuse patient.[facility] [place]In the event this information is protected by the Federal Confidentiality of Alcohol and Drug Abuse Patient Records regulations: The Federal rules restrict any use of the information to criminally investigate or prosecute any alcohol or drug abuse patient.[facility] [place]In the event this information is protected by the Federal Confidentiality of Alcohol and Drug Abuse Patient Records regulations: The Federal rules restrict any use of the information to criminally investigate or prosecute any alcohol or drug abuse patient.[facility] [place]In the event this information is protected by the Federal Confidentiality of Alcohol and Drug Abuse Patient Records regulations: The Federal rules restrict any use of the information to criminally investigate or prosecute any alcohol or drug abuse patient.[facility] [place]In the event this information is protected by the Federal Confidentiality of Alcohol and Drug Abuse Patient Records regulations: The Federal rules restrict any use of the information to criminally investigate or prosecute any alcohol or drug abuse patient.[facility] [place]In the event this information is protected by the Federal Confidentiality of Alcohol and Drug Abuse Patient Records regulations: The Federal rules restrict any use of the information to criminally investigate or prosecute any alcohol or drug abuse patient.[facility] [place]In the event this information is protected by the Federal Confidentiality of Alcohol and Drug Abuse Patient Records regulations: The Federal rules restrict any use of the information to criminally investigate or prosecute any alcohol or drug abuse patient.[facility] [place]In the event this information is protected by the Federal Confidentiality of Alcohol and Drug Abuse Patient Records regulations: The Federal rules restrict any use of the information to criminally investigate or prosecute any alcohol or drug abuse patient.[facility] [place]In the event this information is protected by the Federal Confidentiality of Alcohol and Drug Abuse Patient Records regulations: The Federal rules restrict any use of the information to criminally investigate or prosecute any alcohol or drug abuse patient.[facility] [place]In the event this information is protected by the Federal Confidentiality of Alcohol and Drug Abuse Patient Records regulations: The Federal rules restrict any use of the information to criminally investigate or prosecute any alcohol or drug abuse patient.[facility] [place]In the event this information is protected by the Federal Confidentiality of Alcohol and Drug Abuse Patient Records regulations: The Federal rules restrict any use of the information to criminally investigate or prosecute any alcohol or drug abuse patient.[facility] [place]In the event this information is protected by the Federal Confidentiality of Alcohol and Drug Abuse Patient Records regulations: The Federal rules restrict any use of the information to criminally investigate or prosecute any alcohol or drug abuse patient.[facility] [place]In the event this information is protected by the Federal Confidentiality of Alcohol and Drug Abuse Patient Records regulations: The Federal rules restrict any use of the information to criminally investigate or prosecute any alcohol or drug abuse patient.[facility] [place]In the event this information is protected by the Federal Confidentiality of Alcohol and Drug Abuse Patient Records regulations: The Federal rules restrict any use of the information to criminally investigate or prosecute any alcohol or drug abuse patient.[facility] [place]In the event this information is protected by the Federal Confidentiality of Alcohol and Drug Abuse Patient Records regulations: The Federal rules restrict any use of the information to criminally investigate or prosecute any alcohol or drug abuse patient.[facility] [place]In the event this information is protected by the Federal Confidentiality of Alcohol and Drug Abuse Patient Records regulations: The Federal rules restrict any use of the information to criminally investigate or prosecute any alcohol or drug abuse patient.[facility] the event this information is protected by the Federal Confidentiality of Alcohol and Drug Abuse Patient Records regulations: The Federal rules restrict any use of the information to criminally investigate or prosecute any alcohol or drug abuse patient.[facility] [place]In the event this information is protected by the Federal Confidentiality of Alcohol and Drug Abuse Patient Records regulations: The Federal rules restrict any use of the information to criminally investigate or prosecute any alcohol or drug abuse patient.[facility] [place]In the event this information is protected by [...] or prosecute any alcohol or drug abuse patient.[facility] [place]In the event this information is protected by the Federal Confidentiality of Alcohol and Drug Abuse Patient Records regulations: The Federal rules restrict any use of the information to criminally investigate or prosecute any alcohol or drug abuse patient.[facility] [place]In the event this information is protected by the Federal Confidentiality of Alcohol and Drug Abuse Patient Records regulations: The Federal rules restrict any use of the information to criminally investigate or prosecute any alcohol or drug abuse patient.[facility] [place]In the event this information is protected by the Federal Confidentiality of Alcohol and Drug Abuse Patient Records regulations: The Federal rules restrict any use of the information to criminally investigate or prosecute any alcohol or drug abuse patient.[facility] [place]In the event this information is protected by the Federal Confidentiality of Alcohol and Drug Abuse Patient Records regulations: The Federal rules restrict any use of the information to criminally investigate or prosecute any alcohol or drug abuse patient.[facility] [place]In the event this information is protected by the Federal Confidentiality of Alcohol and Drug Abuse Patient Records regulations: The Federal rules restrict any use of the information to criminally investigate or prosecute any alcohol or drug abuse patient.[facility] [place]In the event this information is protected by the Federal Confidentiality of Alcohol and Drug Abuse Patient Records regulations: The Federal rules restrict any use of the information to criminally investigate or prosecute any alcohol or drug abuse patient.[facility] [place]In the event this information is protected by the Federal Confidentiality of Alcohol and Drug Abuse Patient Records regulations: The Federal rules restrict any use of the information to criminally investigate or prosecute any alcohol or drug abuse patient.[facility] [place]In the event this information is protected by the Federal Confidentiality of Alcohol and Drug Abuse Patient Records regulations: The Federal rules restrict any use of the information to criminally investigate or prosecute any alcohol or drug abuse patient.[facility] [place]In the event this information is protected by the Federal Confidentiality of Alcohol and Drug Abuse Patient Records regulations: The Federal rules restrict any use of the information to criminally investigate or prosecute any alcohol or drug abuse patient.[facility] [place]In the event this information is protected by the Federal Confidentiality of Alcohol and Drug Abuse Patient Records regulations: The Federal rules restrict any use of the information to criminally investigate or prosecute any alcohol or drug abuse patient.[facility] [place]In the event this information is protected by the Federal Confidentiality of Alcohol and Drug Abuse Patient Records regulations: The Federal rules restrict any use of the information to criminally investigate or prosecute any alcohol or drug abuse patient.[facility] [place]In the event this information is protected by the Federal Confidentiality of Alcohol and Drug Abuse Patient Records regulations: The Federal rules restrict any use of the information to criminally investigate or prosecute any alcohol or drug abuse patient.[facility] [place]In the event this information is protected by the Federal Confidentiality of Alcohol and Drug Abuse Patient Records regulations: The Federal rules restrict any use of the information to criminally investigate or prosecute any alcohol or drug abuse patient.[facility] [place]In the event this information is protected by the Federal Confidentiality of Alcohol and Drug Abuse Patient Records regulations: The Federal rules restrict any use of the information to criminally investigate or prosecute any alcohol or drug abuse patient.[facility] [place]In the event this information is protected by the Federal Confidentiality of Alcohol and Drug Abuse Patient Records regulations: The Federal rules restrict any use of the information to criminally investigate or prosecute any alcohol or drug abuse patient.[facility] [place]In the event this information is protected by the Federal Confidentiality of Alcohol and Drug Abuse Patient Records regulations: The Federal rules restrict any use of the information to criminally investigate or prosecute any alcohol or drug abuse patient.[facility] [place]In the event this information is protected by the Federal Confidentiality of Alcohol and Drug Abuse Patient Records regulations: The Federal rules restrict any use of the information to criminally investigate or prosecute any alcohol or drug abuse patient.[facility] [place]In the event this information is protected by the Federal Confidentiality of Alcohol and Drug Abuse Patient Records regulations: The Federal rules restrict any use of the information to criminally investigate or prosecute any alcohol or drug abuse patient.[facility] [place]In the event this information is protected by the Federal Confidentiality of Alcohol and Drug Abuse Patient Records regulations: The Federal rules restrict any use of the information to criminally investigate or prosecute any alcohol or drug abuse patient.[facility] [place]In the event this information is protected by the Federal Confidentiality of Alcohol and Drug Abuse Patient Records regulations: The Federal rules restrict any use of the information to criminally investigate or prosecute any alcohol or drug abuse patient.[facility] [place]In the event this information is protected by the Federal Confidentiality of Alcohol and Drug Abuse Patient Records regulations: The Federal rules restrict any use of the information to criminally investigate or prosecute any alcohol or drug abuse patient.[facility] [place]In the event this information is protected by the Federal Confidentiality of Alcohol and Drug Abuse Patient Records regulations: The Federal rules restrict any use of the information to criminally investigate or prosecute any alcohol or drug abuse patient.[facility] [place]In the event this information is protected by the Federal Confidentiality of Alcohol and Drug Abuse Patient Records regulations: The Federal rules restrict any use of the information to criminally investigate or prosecute any alcohol or drug abuse patient.[facility] [place]In the event this information is protected by the Federal Confidentiality of Alcohol and Drug Abuse Patient Records regulations: The Federal rules restrict any use of the information to criminally investigate or prosecute any alcohol or drug abuse patient.[facility] [place]In the event this information is protected by the Federal Confidentiality of Alcohol and Drug Abuse Patient Records regulations: The Federal rules restrict any use of the information to criminally investigate or prosecute any alcohol or drug abuse patient.[facility] [place]In the event this information is protected by the Federal Confidentiality of Alcohol and Drug Abuse Patient Records regulations: The Federal rules restrict any use of the information to criminally investigate or prosecute any alcohol or drug abuse patient.[facility] [place]In the event this information is protected by the Federal Confidentiality of Alcohol and Drug Abuse Patient Records regulations: The Federal rules restrict any use of the information to criminally investigate or prosecute any alcohol or drug abuse patient.[facility] [place]In the event this information is protected by the Federal Confidentiality of Alcohol and Drug Abuse Patient Records regulations: The Federal rules restrict any use of the information to criminally investigate or prosecute any alcohol or drug abuse patient.[facility] [place]In the event this information is protected by the Federal Confidentiality of Alcohol and Drug Abuse Patient Records regulations: The Federal rules restrict any use of the information to criminally investigate or prosecute any alcohol or drug abuse patient.[facility] [place]In the event this information is protected by the Federal Confidentiality of Alcohol and Drug Abuse Patient Records regulations: The Federal rules restrict any use of the information to criminally investigate or prosecute any alcohol or drug abuse patient.[facility] [place]In the event this information is protected by the Federal Confidentiality of Alcohol and Drug Abuse Patient Records regulations: The Federal rules restrict any use of the information to criminally investigate or prosecute any alcohol or drug abuse patient.[facility] [place]In the event this information is protected by the Federal Confidentiality of Alcohol and Drug Abuse Patient Records regulations: The Federal rules restrict any use of the information to criminally investigate or prosecute any alcohol or drug abuse patient.[facility] [place]In the event this information is protected by the Federal Confidentiality of Alcohol and Drug Abuse Patient Records regulations: The Federal rules restrict any use of the information to criminally investigate or prosecute any alcohol or drug abuse patient.[facility] [place]In the event this information is protected by the Federal Confidentiality of Alcohol and Drug Abuse Patient Records regulations: The Federal rules restrict any use of the information to criminally investigate or prosecute any alcohol or drug abuse patient.[facility] [place]In the event this information is protected by the Federal Confidentiality of Alcohol and Drug Abuse Patient Records regulations: The Federal rules restrict any use of the information to criminally investigate or prosecute any alcohol or drug abuse patient.[facility] [place]In the event this information is protected by the Federal Confidentiality of Alcohol and Drug Abuse Patient Records regulations: The Federal rules restrict any use of the information to criminally investigate or prosecute any alcohol or drug abuse patient.[facility] [place]In the event this information is protected by the Federal Confidentiality of Alcohol and Drug Abuse Patient Records regulations: The Federal rules restrict any use of the information to criminally investigate or prosecute any alcohol or drug abuse patient.[facility] [place]In the event this information is protected by the Federal Confidentiality of Alcohol and Drug Abuse Patient Records regulations: The Federal rules restrict any use of the information to criminally investigate or prosecute any alcohol or drug abuse patient.[facility] [place]In the event this information is protected by the Federal Confidentiality of Alcohol and Drug Abuse Patient Records regulations: The Federal rules restrict any use of the information to criminally investigate or prosecute any alcohol or drug abuse patient.[facility] [place]In the event this information is protected by the Federal Confidentiality of Alcohol and Drug Abuse Patient Records regulations: The Federal rules restrict any use of the information to criminally investigate or prosecute any alcohol or drug abuse patient.[facility] [place]In the event this information is protected by the Federal Confidentiality of Alcohol and Drug Abuse Patient Records regulations: The Federal rules restrict any use of the information to criminally investigate or prosecute any alcohol or drug abuse patient.[facility] [place]In the event this information is protected by the Federal Confidentiality of Alcohol and Drug Abuse Patient Records regulations: The Federal rules restrict any use of the information to criminally investigate or prosecute any alcohol or drug abuse patient.[facility] [place]In the event this information is protected by the Federal Confidentiality of Alcohol and Drug Abuse Patient Records regulations: The Federal rules restrict any use of the information to criminally investigate or prosecute any alcohol or drug abuse patient.[facility] [place]In the event this information is protected by the Federal Confidentiality of Alcohol and Drug Abuse Patient Records regulations: The Federal rules restrict any use of the information to criminally investigate or prosecute any alcohol or drug abuse patient.[facility] [place]In the event this information is protected by the Federal Confidentiality of Alcohol and Drug Abuse Patient Records regulations: The Federal rules restrict any use of the information to criminally investigate or prosecute any alcohol or drug abuse patient.[facility] [place]In the event this information is protected by the Federal Confidentiality of Alcohol and Drug Abuse Patient Records regulations: The Federal rules restrict any use of the information to criminally investigate or prosecute any alcohol or drug abuse patient.[facility] the event this information is protected by the Federal Confidentiality of Alcohol and Drug Abuse Patient Records regulations: The Federal rules restrict any use of the information to criminally investigate or prosecute any alcohol or drug abuse patient.[facility] [place]In the event this information is protected by the Federal Confidentiality of Alcohol and Drug Abuse Patient Records regulations: The Federal rules restrict any use of the information to criminally investigate or prosecute any alcohol or drug abuse patient.[facility] [place]In the event this information is protected by [...] or prosecute any alcohol or drug abuse patient.[facility] [place]In the event this information is protected by the Federal Confidentiality of Alcohol and Drug Abuse Patient Records regulations: The Federal rules restrict any use of the information to criminally investigate or prosecute any alcohol or drug abuse patient.[facility] [place]In the event this information is protected by the Federal Confidentiality of Alcohol and Drug Abuse Patient Records regulations: The Federal rules restrict any use of the information to criminally investigate or prosecute any alcohol or drug abuse patient.[facility] [place]In the event this information is protected by the Federal Confidentiality of Alcohol and Drug Abuse Patient Records regulations: The Federal rules restrict any use of the information to criminally investigate or prosecute any alcohol or drug abuse patient.[facility] [place]In the event this information is protected by the Federal Confidentiality of Alcohol and Drug Abuse Patient Records regulations: The Federal rules restrict any use of the information to criminally investigate or prosecute any alcohol or drug abuse patient.[facility] [place]In the event this information is protected by the Federal Confidentiality of Alcohol and Drug Abuse Patient Records regulations: The Federal rules restrict any use of the information to criminally investigate or prosecute any alcohol or drug abuse patient.[facility] [place]In the event this information is protected by the Federal Confidentiality of Alcohol and Drug Abuse Patient Records regulations: The Federal rules restrict any use of the information to criminally investigate or prosecute any alcohol or drug abuse patient.[facility] [place]In the event this information is protected by the Federal Confidentiality of Alcohol and Drug Abuse Patient Records regulations: The Federal rules restrict any use of the information to criminally investigate or prosecute any alcohol or drug abuse patient.[facility] [place]In the event this information is protected by the Federal Confidentiality of Alcohol and Drug Abuse Patient Records regulations: The Federal rules restrict any use of the information to criminally investigate or prosecute any alcohol or drug abuse patient.[facility] [place]In the event this information is protected by the Federal Confidentiality of Alcohol and Drug Abuse Patient Records regulations: The Federal rules restrict any use of the information to criminally investigate or prosecute any alcohol or drug abuse patient.[facility] [place]In the event this information is protected by the Federal Confidentiality of Alcohol and Drug Abuse Patient Records regulations: The Federal rules restrict any use of the information to criminally investigate or prosecute any alcohol or drug abuse patient.[facility] [place]In the event this information is protected by the Federal Confidentiality of Alcohol and Drug Abuse Patient Records regulations: The Federal rules restrict any use of the information to criminally investigate or prosecute any alcohol or drug abuse patient.[facility] [place]In the event this information is protected by the Federal Confidentiality of Alcohol and Drug Abuse Patient Records regulations: The Federal rules restrict any use of the information to criminally investigate or prosecute any alcohol or drug abuse patient.[facility] [place]In the event this information is protected by the Federal Confidentiality of Alcohol and Drug Abuse Patient Records regulations: The Federal rules restrict any use of the information to criminally investigate or prosecute any alcohol or drug abuse patient.[facility] [place]In the event this information is protected by the Federal Confidentiality of Alcohol and Drug Abuse Patient Records regulations: The Federal rules restrict any use of the information to criminally investigate or prosecute any alcohol or drug abuse patient.[facility] [place]In the event this information is protected by the Federal Confidentiality of Alcohol and Drug Abuse Patient Records regulations: The Federal rules restrict any use of the information to criminally investigate or prosecute any alcohol or drug abuse patient.[facility] [place]In the event this information is protected by the Federal Confidentiality of Alcohol and Drug Abuse Patient Records regulations: The Federal rules restrict any use of the information to criminally investigate or prosecute any alcohol or drug abuse patient.[facility] [place]In the event this information is protected by the Federal Confidentiality of Alcohol and Drug Abuse Patient Records regulations: The Federal rules restrict any use of the information to criminally investigate or prosecute any alcohol or drug abuse patient.[facility] [place]In the event this information is protected by the Federal Confidentiality of Alcohol and Drug Abuse Patient Records regulations: The Federal rules restrict any use of the information to criminally investigate or prosecute any alcohol or drug abuse patient.[facility] [place]In the event this information is protected by the Federal Confidentiality of Alcohol and Drug Abuse Patient Records regulations: The Federal rules restrict any use of the information to criminally investigate or prosecute any alcohol or drug abuse patient.[facility] [place]In the event this information is protected by the Federal Confidentiality of Alcohol and Drug Abuse Patient Records regulations: The Federal rules restrict any use of the information to criminally investigate or prosecute any alcohol or drug abuse patient.[facility] [place]In the event this information is protected by the Federal Confidentiality of Alcohol and Drug Abuse Patient Records regulations: The Federal rules restrict any use of the information to criminally investigate or prosecute any alcohol or drug abuse patient.[facility] [place]In the event this information is protected by the Federal Confidentiality of Alcohol and Drug Abuse Patient Records regulations: The Federal rules restrict any use of the information to criminally investigate or prosecute any alcohol or drug abuse patient.[facility] [place]In the event this information is protected by the Federal Confidentiality of Alcohol and Drug Abuse Patient Records regulations: The Federal rules restrict any use of the information to criminally investigate or prosecute any alcohol or drug abuse patient.[facility] [place]In the event this information is protected by the Federal Confidentiality of Alcohol and Drug Abuse Patient Records regulations: The Federal rules restrict any use of the information to criminally investigate or prosecute any alcohol or drug abuse patient.[facility] [place]In the event this information is protected by the Federal Confidentiality of Alcohol and Drug Abuse Patient Records regulations: The Federal rules restrict any use of the information to criminally investigate or prosecute any alcohol or drug abuse patient.[facility] [place]In the event this information is protected by the Federal Confidentiality of Alcohol and Drug Abuse Patient Records regulations: The Federal rules restrict any use of the information to criminally investigate or prosecute any alcohol or drug abuse patient.[facility] [place]In the event this information is protected by the Federal Confidentiality of Alcohol and Drug Abuse Patient Records regulations: The Federal rules restrict any use of the information to criminally investigate or prosecute any alcohol or drug abuse patient.[facility] [place]In the event this information is protected by the Federal Confidentiality of Alcohol and Drug Abuse Patient Records regulations: The Federal rules restrict any use of the information to criminally investigate or prosecute any alcohol or drug abuse patient.[facility] [place]In the event this information is protected by the Federal Confidentiality of Alcohol and Drug Abuse Patient Records regulations: The Federal rules restrict any use of the information to criminally investigate or prosecute any alcohol or drug abuse patient.[facility] [place]In the event this information is protected by the Federal Confidentiality of Alcohol and Drug Abuse Patient Records regulations: The Federal rules restrict any use of the information to criminally investigate or prosecute any alcohol or drug abuse patient.[facility] [place]In the event this information is protected by the Federal Confidentiality of Alcohol and Drug Abuse Patient Records regulations: The Federal rules restrict any use of the information to criminally investigate or prosecute any alcohol or drug abuse patient.[facility] [place]In the event this information is protected by the Federal Confidentiality of Alcohol and Drug Abuse Patient Records regulations: The Federal rules restrict any use of the information to criminally investigate or prosecute any alcohol or drug abuse patient.[facility] [place]In the event this information is protected by the Federal Confidentiality of Alcohol and Drug Abuse Patient Records regulations: The Federal rules restrict any use of the information to criminally investigate or prosecute any alcohol or drug abuse patient.[facility] [place]In the event this information is protected by the Federal Confidentiality of Alcohol and Drug Abuse Patient Records regulations: The Federal rules restrict any use of the information to criminally investigate or prosecute any alcohol or drug abuse patient.[facility] [place]In the event this information is protected by the Federal Confidentiality of Alcohol and Drug Abuse Patient Records regulations: The Federal rules restrict any use of the information to criminally investigate or prosecute any alcohol or drug abuse patient.[facility] [place]In the event this information is protected by the Federal Confidentiality of Alcohol and Drug Abuse Patient Records regulations: The Federal rules restrict any use of the information to criminally investigate or prosecute any alcohol or drug abuse patient.[facility] [place]In the event this information is protected by the Federal Confidentiality of Alcohol and Drug Abuse Patient Records regulations: The Federal rules restrict any use of the information to criminally investigate or prosecute any alcohol or drug abuse patient.[facility] [place]In the event this information is protected by the Federal Confidentiality of Alcohol and Drug Abuse Patient Records regulations: The Federal rules restrict any use of the information to criminally investigate or prosecute any alcohol or drug abuse patient.[facility] [place]In the event this information is protected by the Federal Confidentiality of Alcohol and Drug Abuse Patient Records regulations: The Federal rules restrict any use of the information to criminally investigate or prosecute any alcohol or drug abuse patient.[facility] [place]In the event this information is protected by the Federal Confidentiality of Alcohol and Drug Abuse Patient Records regulations: The Federal rules restrict any use of the information to criminally investigate or prosecute any alcohol or drug abuse patient.[facility] [place]In the event this information is protected by the Federal Confidentiality of Alcohol and Drug Abuse Patient Records regulations: The Federal rules restrict any use of the information to criminally investigate or prosecute any alcohol or drug abuse patient.[facility] [place]In the event this information is protected by the Federal Confidentiality of Alcohol and Drug Abuse Patient Records regulations: The Federal rules restrict any use of the information to criminally investigate or prosecute any alcohol or drug abuse patient.[facility] [place]In the event this information is protected by the Federal Confidentiality of Alcohol and Drug Abuse Patient Records regulations: The Federal rules restrict any use of the information to criminally investigate or prosecute any alcohol or drug abuse patient.[facility] [place] the event this information is protected by the Federal Confidentiality of Alcohol and Drug Abuse Patient Records regulations: The Federal rules restrict any use of the information to criminally investigate or prosecute any alcohol or drug abuse patient.[facility] [place] the event this information is protected by the Federal Confidentiality of Alcohol and Drug Abuse Patient Records regulations: The Federal rules restrict any use of the information to criminally investigate or prosecute any alcohol or drug abuse patient.[facility] [place]In the event this information is protected by the Federal Confidentiality of Alcohol and Drug Abuse Patient Records regulations: The Federal rules restrict any use of the information to criminally investigate or prosecute any alcohol or drug abuse patient.[facility] [place]In the event this information is protected by the Federal Confidentiality of Alcohol and Drug Abuse Patient Records regulations: The Federal rules restrict any use of the information to criminally investigate or prosecute any alcohol or drug abuse patient.[facility] [place]In the event this information is protected by the Federal Confidentiality of Alcohol and Drug Abuse Patient Records regulations: The Federal rules restrict any use of the information to criminally investigate or prosecute any alcohol or drug abuse patient.[facility] [place] Reason for Visit (unrecogniz ed section and content) Reason Comments Follow Up Specialty Diagnoses / Procedures Referred By Contac t Referred To Contact Family Medicine / FAMILY MEDICINE Diagnoses Follow up. Procedures 4C EST Ivette Grimes MD [address] [place] [address] Ivette Grimes MD [address] [place] [address] Referral ID Status Reason Start Date Expiration Date V isits Requested Visits Authorized [id number] Pending Review 01/31/2023 05/01/2023 1 1 Reason Comments New Patient Specialty Diagnoses / Procedures Referred By Contac t Referred To Contact Pain Management Diagnoses Chronic left shoulder pain Procedures CONSULT TO PAIN MGT OFFICE/OUTPATIENT NEW HIGH MDM 60-74 MINUTES Ivette Grimes MD [address] [place] [address] Referral ID Status Reason Start Date Expiration Date V isits Requested Visits Authorized [id number] Closed PCP Requested Referral 01/22/2022 01/22/2023 1 [...] migrainosus Procedures CONSULT TO NEUROLOGY OFFICE/OUTPATIENT NEW [facility] MDM 60-74 MINUTES Ivette Grimes MD [address] [place] [address] Referral ID Status Reason Start Date Expiration Date V isits Requested Visits Authorized [id number] Closed PCP Requested Referral 12/25/2021 12/25/2022 1 1 Reason Onset Date Comments Refill Request 04/16/2022 Reason Comments Follow Up shoulder pain, switc h medication back to gabapentin Specialty Diagnoses / Procedures Referred By Contac t Referred To Contact Family Practice / FAMILY MEDICINE Diagnoses Follow-up exam follow up Procedures OFFICE/OUTPATIENT ESTABLISHED [facility] MDM 40-54 MIN MYC OFFICE VISIT Ivette Grimes MD [address] [place] [address] Ivette Grimes MD [address] [place] [address] Referral ID Status Reason Start Date Expiration Date Visits Re quested Visits Authorized [id number] Closed 04/17/2022 11/03/2022 1 1 Reason Onset [...] PROCEDURE 20 Elle Rasheed MD [address] [address] Elle Rasheed MD [address] [place] [address] Referral ID Status Reason Start Date Expiration Date Visits Re quested Visits Authorized [id number] Closed 05/10/2022 06/10/2022 1 1 Reason Comments Procedure Follow Up Reason Comments Follow Up Specialty Diagnoses / Procedures Referred By Contac t Referred To Contact Pain Management / PAIN MANAGEMENT Diagnoses OV & follow up inj Procedures OFFICE/OUTPATIENT [facility] 30-39 MIN EST PATIENT Elle Rasheed MD [address] [address] Adelina Marinelli, THOM.[facility] [address] [place] [address] Referral ID Status Reason Start Date Expiration Date Visits Re quested Visits Authorized [id number] Closed 11/04/2021 11/03/2022 1 1 Reason Comments Appointment Reason Comments Headache follow up Specialty Diagnoses / Procedures Referred By Contac t Referred To Contact Neurology Diagnoses Migraine with aura, not intractable, without status migrainosus Procedures CONSULT TO NEUROLOGY OFFICE/OUTPATIENT [facility] 60-74 MINUTES Ivette Grimes MD [address] [place] [address] Reason Comments Orders Reason Onset Date Comments Refill Request 06/22/2022 Reason Onset Date Comments Refill Request 07/10/2022 Reason Comments Patient Update Injection questions Reason Comments Chronic Migraine X 6-7 years Specialty Diagnoses / Procedures Referred By Contac t Referred To Contact Diagnoses Intractable migraine without aura and without status migrainosus Procedures CONSULT TO HEADACHE CLINIC OFFICE/OUTPATIENT [facility] MDM 60-74 MINUTES Tara Gillette, THOM.TERRITORY SALES PROFESSIONAL [address] [place] [address] Referral ID Status Reason Start Date Expiration Date V isits Requested Visits Authorized [id number] Closed PCP Requested Referral 06/07/2022 06/07/2023 1 [...] Diagnoses Follow-up exam follow up Procedures OFFICE/OUTPATIENT [facility] MDM 40-54 MIN MYC OFFICE VISIT Ivette Grimes MD [address] [place] [address] Ivette Grimes MD [address] [place] [address] Referral ID Status Reason Start Date Expiration Date V isits Requested Visits Authorized [id number] Authorized 04/17/2022 11/03/2022 99 99 Reason Comments Patient Update Reason Comments Follow Up Acute Visit Reason Comments Fatigue Specialty Diagnoses / Procedures Referred By Petra meek Referred To Contact Family Medicine / FAMILY MEDICINE Diagnoses dizzy-follow up from virtual with Dr Bianchi 09/03 Procedures 4C EST Ivette Grimes MD [address] [place] [address] Ivette Grimes MD [address] [place] [address] Referral ID Status Reason Start Date Expiration Date Visits Re quested Visits Authorized [id number] Closed 09/04/2022 12/03/2022 1 1 Reason Onset [...] MINUTES VIDEO PSYC/PSYL NEW Self Grace Coronel, FOSTER CARE THERAPIST.TERRITORY SALES PROFESSIONAL [address] [place] [address] Referral ID Status Reason Start Date Expiration Date Visits Re quested Visits Authorized [id number] Closed 11/04/2021 11/03/2022 1 1 Reason Comments Follow Up Pain (Shoulder Pain) Left Specialty Diagnoses / Procedures Referred By Contac t Referred To Contact Pain Management / PAIN MANAGEMENT Diagnoses Examination wants to discuss options since Insurance denied RFA Procedures OFFICE/OUTPATIENT ESTABLISHED MOD MDM 30-39 MIN EST PATIENT Self Adelina Marinelli, FOSTER CARE THERAPIST.TERRITORY SALES PROFESSIONAL [address] [place] [address] Referral ID Status Reason Start Date Expiration Date V isits Requested Visits Authorized [id number] Closed Patient Cleared - Admin/Chairm an/Director advise to proceed 11/08/2022 02/06/2023 1 1 Reason Onset Date Comments Refill Request 11/15/2022 Reason Onset Date Comments Refill Request 11/23/2022 Reason Comments ER F/U Reason Comments Patient Question [place] appointment on 12/05/22 Reason Comments Acute Visit [...] referral botox 200 units every 90 days [id number] Karen Bansal, FOSTER CARE THERAPIST.TERRITORY SALES PROFESSIONAL [address] [place] [address] Neur Adult Main [address] [phone] Referral ID Status Reason Start Date Expiration Date V isits Requested Visits Authorized [id number] Authorized 08/15/2022 01/30/2023 2 2 Reason Comments [...] Referred By Contac t Referred To Contact COORDINATOR OF LIBRARY SERVICES Diagnoses annual Procedures EST I ANNUAL PATIENT Self Galina Camacho MD [address] [place] [address] Referral ID Status Reason Start Date Expiration Date V isits Requested Visits Authorized [id number] Closed Patient Cleared - INN Insurance Found [...] due on 04/22/23 Fatuma Beckford PA-C [address] [place] [address] Neur Adult Main [address] [phone] Referral ID Status Reason Start Date Expiration Date V isits Requested Visits Authorized [id number] Authorized 04/02/2023 04/02/2024 4 4 Reason Comments Pt requesting Boot Reason Comments Follow Up Reason Comments Follow Up MRI results. Reason Onset Date Comments Refill Request 06/08/2023 Reason Comments New Bone spurs Pain Bone spurs Reason Onset Date Comments Refill Request 07/05/2023 Reason Comments Forms [facility] preventative car e Reason Onset Date Comments Refill Request 09/09/2023 Reason Onset Date Comments Refill Request 09/23/2023 Reason Onset Date Comments Refill Request 10/14/2023 Reason Comments Diabetes Reason Onset Date Comments Refill Request 01/01/2024 Reason Comments Insurance Authorization Reason Onset Date Comments Refill Request 01/22/2024 Reason Onset Date Comments Refill Request 02/28/2024 Reason Comments Botox Injection Specialty Diagnoses / Procedures [facility] Referred To Contact ADULT NEUROLOGY Diagnoses Intractable chronic migraine without aura Procedures BOTULINUM TOXIN A PER 1 UNIT CHEMODERVATE FACIAL/TRIGEM/CERV MUSC MIGRAINE Renewal botox 200 units every 90 days. Patient due on 04/22/23 Fatuma Beckford PA-C [address] [place] [address] [place] [address] Neur Adult Main [address] [place] [address] Referral ID Status Reason Start Date Expiration Date Visits Re quested Visits Authorized [id number] Closed 04/02/2023 04/02/2024 4 4 Reason Comments [...] CHEMODERVATE FACIAL/TRIGEM/CERV MUSC MIGRAINE Fatuma Beckford PA-C [address] [place] [address] [place] [address] [address] [place] [address] [place] [address] Referral ID Status Reason Start Date Expiration Date V isits Requested Visits Authorized [id number] Authorized 07/01/2024 11/03/2024 99 99 Reason Onset [...] Onset Date Comments Transition Of Care 07/09/2025 [facility] Discharge 07/07/25 Reason Comments Hospital F/U [facility] DX Sepsis, UTI D /C 07/07 Care Teams (unrecognized sec tion and content) Cafe Helper Relationship Specialty Start Date End Date Ivette Grimes MD [address] [place], [place] [id number] PCP - General Family Practice 11/21/13 Jagdish Carballo [facility] [address] [place], [place] [address] Pharmacist Pharmacy 05/19/20 Cafe Helper Relationship Specialty Start Date End Date Ivette Grimes MD [address] [place], [place] [id number] PCP - General Family Practice 11/21/13 Jagdish Carballo [facility] [address] [place], [place] [id number] Pharmacist Pharmacy 05/19/20 Cafe Helper Relationship Specialty Start Date End Date Ivette Grimes MD [address] [facility] [place] [address] PCP - General Family Practice 11/21/13 [facility] [address] [place] [address] Pharmacist Pharmacy 05/19/20 Cafe Helper Relationship Specialty Start Date End Date Ivette Grimes MD [address] [place] [address] PCP - General Family Practice 11/21/13 [facility] [address] [place] [address] Pharmacist Pharmacy 05/19/20 Cafe Helper Relationship Specialty Start Date End Date Ivette Grimes MD [address] [place] [address] PCP - General Family Practice 11/21/13 [facility] [address] [place] [address] Pharmacist Pharmacy 05/19/20 Cafe Helper Relationship Specialty Start Date End Date Ivette Grimes MD [address] [place] [address] PCP - General Family Practice 11/21/13 [facility] [address] [place] [address] Pharmacist Pharmacy 05/19/20 Cafe Helper Relationship Specialty Start Date End Date Ivette Grimes MD [address] [place] [address] PCP - General Family Practice 11/21/13 [facility] [address] [place] [address] Pharmacist Pharmacy 05/19/20 Cafe Helper Relationship Specialty Start Date End Date Ivette Grimes MD [address] [facility] [place] [address] PCP - General Family Practice 11/21/13 Jagdish Carballo, [facility] [address] [facility] [place] [address] Pharmacist Pharmacy 05/19/20 Cafe Helper Relationship Specialty Start Date End Date Ivette Grimes MD [address] [place] [address] PCP - General Family Practice 11/21/13 Jagdish Carballo, [facility] [address] [facility] [place] [address] Pharmacist Pharmacy 05/19/20 Cafe Helper Relationship Specialty Start Date End Date Ivette Grimes MD [address] [place] [address] PCP - General Family Practice 11/21/13 Jagdish Carballo, [facility] [address] [facility] [place] [address] Pharmacist Pharmacy 05/19/20 Cafe Helper Relationship Specialty Start Date End Date Ivette Grimes MD [address] [place] [address] PCP - General Family Practice 11/21/13 Jagdish Carballo, [facility] [address] [facility] [place] [address] Pharmacist Pharmacy 05/19/20 Cafe Helper Relationship Specialty Start Date End Date Ivette Grimes MD [address] [place] [address] PCP - General Family Practice 11/21/13 Jagdish Carballo, [facility] [address] [facility] [place] [address] Pharmacist Pharmacy 05/19/20 Cafe Helper Relationship Specialty Start Date End Date Ivette Grimes MD [address] [place] [address] PCP - General Family Practice 11/21/13 [facility] [address] [place] [address] Pharmacist Pharmacy 05/19/20 Cafe Helper Relationship Specialty Start Date End Date Ivette Grimes MD [address] [facility] [address] PCP - General Family Practice 11/21/13 [facility] [address] [place] [address] Pharmacist Pharmacy 05/19/20 Cafe Helper Relationship Specialty Start Date End Date Ivette Grimes MD [address] [facility] [address] PCP - General Family Practice 11/21/13 [facility] [address] [place] [address] Pharmacist Pharmacy 05/19/20 Cafe Helper Relationship Specialty Start Date End Date Ivette Grimes MD [address] [facility] [address] PCP - General Family Practice 11/21/13 [facility] [address] [place] [address] Pharmacist Pharmacy 05/19/20 Cafe Helper Relationship Specialty Start Date End Date Ivette Grimes MD [address] [facility] [place] [address] PCP - General Family Practice 11/21/13 Jagdish Carballo, [facility] [address] [facility] [place] [address] Pharmacist Pharmacy 05/19/20 Cafe Helper Relationship Specialty Start Date End Date Ivette Grimes MD [address] [facility] [address] PCP - General Family Practice 11/21/13 [facility] [address] [facility] [address] Pharmacist Pharmacy 05/19/20 Cafe Helper Relationship Specialty Start Date End Date Ivette Grimes MD [address] [facility] [address] PCP - General Family Practice 11/21/13 [facility] [address] [facility] [place] [address] Pharmacist Pharmacy 05/19/20 Cafe Helper Relationship Specialty Start Date End Date Ivette Grimes MD [address] [facility] [address] PCP - General Family Medicine 11/21/13 [facility] [address] [place] [address] Pharmacist Pharmacy 05/19/20 Cafe Helper Relationship Specialty Start Date End Date Ivette Grimes MD [address] [facility] [address] PCP - General Family Medicine 11/21/13 [facility] [address] [facility] [place] [address] Pharmacist Pharmacy 05/19/20 Cafe Helper Relationship Specialty Start Date End Date Ivette Grimes MD [address] [facility] [place] [address] PCP - General Family Medicine 11/21/13 [facility] [address] [facility] [place] [address] Pharmacist Pharmacy 05/19/20 Cafe Helper Relationship Specialty Start Date End Date Ivette Grimes MD [address] [facility] [place] [address] PCP - General Family Medicine 11/21/13 [facility] [address] [facility] [place] [address] Pharmacist Pharmacy 05/19/20 Cafe Helper Relationship Specialty Start Date End Date Ivette Grimes MD [address] [place] [address] PCP - General Family Medicine 11/21/13 [facility] [address] [place] [address] Pharmacist Pharmacy 05/19/20 Cafe Helper Relationship Specialty Start Date End Date Ivette Grimes MD [address] [facility] [address] PCP - General Family Medicine 11/21/13 [facility] [address] [facility] [place] [address] Pharmacist Pharmacy 05/19/20 Cafe Helper Relationship Specialty Start Date End Date Ivette Grimes MD [address] [place] [address] PCP - General Family Medicine 11/21/13 Jagdish Carballo, [facility] [address] [place] [address] Pharmacist Pharmacy 05/19/20 Cafe Helper Relationship Specialty Start Date End Date Ivette Grimes MD [address] [facility] [place] [address] PCP - General Family Medicine 11/21/13 MartinhenryJagdish, [facility] [address] [facility] [place] [address] Pharmacist Pharmacy 05/19/20 Cafe Helper Relationship Specialty Start Date End Date Ivette Grimes MD [address] [facility] [address] PCP - General Family Medicine 11/21/13 Jagdish Carballo, [facility] [address] [facility] [place] [address] Pharmacist Pharmacy 05/19/20 Cafe Helper Relationship Specialty Start Date End Date Ivette Grimes MD [address] [facility] [address] PCP - General Family Medicine 11/21/13 [facility] [address] [place] [address] Pharmacist Pharmacy 05/19/20 Cafe Helper Relationship Specialty Start Date End Date Ivetet Grimes MD [address] [facility] [address] PCP - General Family Medicine 11/21/13 Martinhenry Jagdish, [facility] [address] [place] [address] Pharmacist Pharmacy 05/19/20 Cafe Helper Relationship Specialty Start Date End Date Ivette Grimes MD [address] [facility] [address] PCP - General Family Medicine 11/21/13 Jagdish Carballo, [facility] [address] [place] [address] Pharmacist Pharmacy 05/19/20 Cafe Helper Relationship Specialty Start Date End Date Ivette Grimes MD [address] [facility] [place] [address] PCP - General Family Medicine 11/21/13 [facility] [address] [facility] [place] [address] Pharmacist Pharmacy 05/19/20 Cafe Helper Relationship Specialty Start Date End Date Ivette Grimes MD [address] [place] [address] PCP - General Family Medicine 11/21/13 [facility] [address] [facility] [place] [address] Pharmacist Pharmacy 05/19/20 Cafe Helper Relationship Specialty Start Date End Date Ivette Grimes MD [address] [place] [address] PCP - General Family Medicine 11/21/13 [facility] [address] [place] [address] Pharmacist Pharmacy 05/19/20 Cafe Helper Relationship Specialty Start Date End Date Ivette Grimes MD [address] [place] [address] PCP - General Family Medicine 11/21/13 [facility] [address] [place] [address] Pharmacist Pharmacy 05/19/20 Cafe Helper Relationship Specialty Start Date End Date Ivette Grimes MD [address] [place] [address] PCP - General Family Medicine 11/21/13 [facility] [address] [facility] [place] [address] Pharmacist Pharmacy 05/19/20 Jemal Orozco MD [address] [place] [address] Cardiology 10/31/22 Cafe Helper Relationship Specialty Start Date End Date Ivette Grimes MD [address] [place] [address] PCP - General Family Medicine 11/21/13 [facility] [address] [place] [address] Pharmacist Pharmacy 05/19/20 Jemal rOozco MD [address] [place] [address] Cardiology 10/31/22 Cafe Helper Relationship Specialty Start Date End Date Ivette Grimes MD [address] [place] [address] PCP - General Family Medicine 11/21/13 [facility] [address] [place] [address] Pharmacist Pharmacy 05/19/20 Jemal Orozco MD [address] [place] [address] Cardiology 10/31/22 Cafe Helper Relationship Specialty Start Date End Date Ivette Grimes MD [address] [place] [address] PCP - General Family Medicine 11/21/13 [facility] [address] [place] [address] Pharmacist Pharmacy 05/19/20 Jemal Orozco MD [address] [place] [address] Cardiology 10/31/22 Team Status: Active Member Role [...] Dr. Tod Callejas MD Emergency Provider Active Cafe Helper Relationship Specialty Start Date End Date Ivette Grimes MD [address] [place] [address] PCP - General Family Medicine 11/21/13 Jagdish Carballo RPh [address] [place], [place] [address] Pharmacist Pharmacy 05/19/20 Jemal Orozco MD [address] [place] [address] Cardiology 10/31/22 Cafe Helper Relationship Specialty Start Date End Date Ivette Grimes MD [address] [place] [address] PCP - General Family Medicine 11/21/13 [facility] [address] [place] [address] Pharmacist Pharmacy 05/19/20 Jemal Orozco MD [address] [place], [place] [id number] Cardiology 10/31/22 Cafe Helper Relationship Specialty Start Date End Date Ivette Grimes MD [address] [place] [address] PCP - General Family Medicine 11/21/13 [facility] [address] [place] [address] Pharmacist Pharmacy 05/19/20 Jemal Orozco MD [address] [place] [address] Cardiology 10/31/22 Cafe Helper Relationship Specialty Start Date End Date Ivette Grimes MD [address] [place] [address] PCP - General Family Medicine 11/21/13 [facility] [address] [place] [address] Pharmacist Pharmacy 05/19/20 Jemal Orozco MD [address] [place] [address] Cardiology 10/31/22 Cafe Helper Relationship Specialty Start Date End Date Ivette Grimes MD [address] [place] [address] PCP - General Family Medicine 11/21/13 Jagdish Carballo, [facility] [address] [facility] [place] [address] Pharmacist Pharmacy 05/19/20 Jemal Orozco MD [address] [place] [address] Cardiology 10/31/22 Cafe Helper Relationship Specialty Start Date End Date Ivette Grimes MD [address] [facility] [place] [address] PCP - General Family Medicine 11/21/13 [facility] [address] [facility] [place] [address] Pharmacist Pharmacy 05/19/20 Jemal Orozco MD [address] [place] [address] Cardiology 10/31/22 Cafe Helper Relationship Specialty Start Date End Date Ivette Grimes MD [address] [place] [address] PCP - General Family Medicine 11/21/13 [facility] [address] [facility] [place] [address] Pharmacist Pharmacy 05/19/20 Jemal Orozco MD [address] [place] [address] Cardiology 10/31/22 Cafe Helper Relationship Specialty Start Date End Date Ivette Grimes MD [address] [facility] [place] [address] PCP - General Family Medicine 11/21/13 Jagdish Carballo, [facility] [address] [facility] [place] [address] Pharmacist Pharmacy 05/19/20 Jemal Orozco MD [address] [place] [address] Cardiology 10/31/22 Cafe Helper Relationship Specialty Start Date End Date Ivette Grimes MD [address] [facility] [place] [address] PCP - General Family Medicine 11/21/13 [facility] [address] [facility] [address] Pharmacist Pharmacy 05/19/20 Jemal Orozco MD [address] [place] [address] Cardiology 10/31/22 Cafe Helper Relationship Specialty Start Date End Date Ivette Grimes MD [address] [place] [address] PCP - General Family Medicine 11/21/13 [facility] [address] [place] [address] Pharmacist Pharmacy 05/19/20 Jemal Orozco MD [address] [place] [address] Cardiology 10/31/22 Cafe Helper Relationship Specialty Start Date End Date Ivette Grimes MD [address] [place] [address] PCP - General Family Medicine 11/21/13 [facility] [address] [place] [address] Pharmacist Pharmacy 05/19/20 Jemal Orozco MD [address] [place] [address] Cardiology 10/31/22 Team Status: Inactive Member Role Status Dates Dr. Ivette Grimes MD Primary Care Provider, Referring Provider Active Dr. Vin Montes MD Attending Provider Active Team Status: Inactive Member Role Status Dates Dr. Ivette Grimes MD Primary Care Provider, Referring Provider Active Jesenia Mercado MECHANICAL DEVELOPMENT ENGINEER, MECHANICAL DEVELOPMENT ENGINEER-C Attending Provider Active Team Status: Inactive [...] Pearl MD Attending Provider, Emergency Provider Active Cafe Helper Relationship Specialty Start Date End Date Ivette Grimes MD [address] [place] [address] PCP - General Family Medicine 11/21/13 [facility] [address] [place] [address] Pharmacist Pharmacy 05/19/20 Jemal Orozco MD [address] [place], [place] [id number] Cardiology 10/31/22 Cafe Helper Relationship Specialty Start Date End Date Ivette Grimes MD [address] [place] [address] PCP - General Family Medicine 11/21/13 [facility] [address] [place] [address] Pharmacist Pharmacy 05/19/20 Jemal Orozco MD [address] [place] [address] Cardiology 10/31/22 Cafe Helper Relationship Specialty Start Date End Date Ivette Grimes MD [address] [place] [address] PCP - General Family Medicine 11/21/13 [facility] [address] [place] [address] Pharmacist Pharmacy 05/19/20 Jemal Orozco MD [address] [place], [place] [phone] Cardiology 10/31/22 Cafe Helper Relationship Specialty Start Date End Date Ivette Grimes MD [address] [place] [address] PCP - General Family Medicine 11/21/13 [facility] [address] [place] [address] Pharmacist Pharmacy 05/19/20 Jemal Orozco MD [address] [place] [address] Cardiology 10/31/22 Team Status: Active Member Role Status Dates Dr. Ivette Grimes MD Primary Care Provider Active Adelina Marinelli MECHANICAL DEVELOPMENT ENGINEER, MECHANICAL DEVELOPMENT ENGINEER-C Attending Provider, Willian alvarez Provider Active Cafe Helper Relationship Specialty Start Date End Date Ivette Grimes MD [address] [place] [address] PCP - General Family Medicine 11/21/13 [facility] [address] [place] [address] Pharmacist Pharmacy 05/19/20 Jemal Orozco MD [address] [place] [address] Cardiology 10/31/22 Cafe Helper Relationship Specialty Start Date End Date Ivette Grimes MD [address] [place] [address] PCP - General Family Medicine 11/21/13 [facility] [address] [facility] [address] Pharmacist Pharmacy 05/19/20 Jemal Orozco MD [address] [place] [address] Cardiology 10/31/22 Cafe Helper Relationship Specialty Start Date End Date Ivette Grimes MD [address] [place] [address] PCP - General Family Medicine 11/21/13 [facility] [address] [place] [address] Pharmacist Pharmacy 05/19/20 Jemal Orozco MD [address] [place] [address] Cardiology 10/31/22 Cafe Helper Relationship Specialty Start Date End Date Ivette Grimes MD [address] [place] [address] PCP - General Family Medicine 11/21/13 [facility] [address] [facility] [address] Pharmacist Pharmacy 05/19/20 Jemal Orozco MD [address] [place] [address] Cardiology 10/31/22 Cafe Helper Relationship Specialty Start Date End Date Ivette Grimes MD [address] [place] [address] PCP - General Family Medicine 11/21/13 [facility] [address] [facility] [address] Pharmacist Pharmacy 05/19/20 Jemal Orozco MD [address] [place], [place] [phone] Cardiology 10/31/22 Cafe Helper Relationship Specialty Start Date End Date Ivette Grimes MD [address] [place], [place] 839801 PCP - General Family Medicine 11/21/13 [facility] [address] [place] [address] Pharmacist Pharmacy 05/19/20 Jemal Orozco MD [address] [place] [address] Cardiology 10/31/22 Team Status: Inactive Member Role Status Dates Dr. Ivette Grimes MD Primary Care Provider Active TETO MARY Attending Provider, Referring Pro vider Active Team Status: Inactive Member Role Status Dates Dr. Ivette Grimes MD Primary Care Provider Active Dr. Sam Pearl MD Emergency Provider Active Cafe Helper Relationship Specialty Start Date End Date Ivette Grimes MD [address] [place], [place] 628931 PCP - General Family Medicine 11/21/13 [facility] [address] [place] [address] Pharmacist Pharmacy 05/19/20 Jemal Orozco MD [address] [place], [place] [phone] Cardiology 10/31/22 Cafe Helper Relationship Specialty Start Date End Date Ivette Grimes MD [address] [place] [address] PCP - General Family Medicine 11/21/13 Jagdish Carballo, [facility] [address] [place] [address] Pharmacist Pharmacy 05/19/20 Jemal Orozco MD [address] [place], [place] [phone] Cardiology 10/31/22 Cafe Helper Relationship Specialty Start Date End Date Ivette Grimes MD [address] [place] [address] PCP - General Family Medicine 11/21/13 [facility] [address] [place] [address] Pharmacist Pharmacy 05/19/20 Jemal Orozco MD [address] [place], [place] 5101195 Cardiology 10/31/22 Cafe Helper Relationship Specialty Start Date End Date Ivette Grimes MD [address] [place] [address] PCP - General Family Medicine 11/21/13 [facility] [address] [place] [address] Pharmacist Pharmacy 05/19/20 Jemal Orozco MD [address] [place] [address] Cardiology 10/31/22 Cafe Helper Relationship Specialty Start Date End Date Ivette Grimes MD [address] [place] [address] PCP - General Family Medicine 11/21/13 [facility] [address] [place] [address] Pharmacist Pharmacy 05/19/20 Jemal Orozco MD [address] [place], [place] [phone] Cardiology 10/31/22 Cafe Helper Relationship Specialty Start Date End Date Ivette Grimes MD [address] [place] [address] PCP - General Family Medicine 11/21/13 [facility] [address] [place] [address] Pharmacist Pharmacy 05/19/20 Jemal Orozco MD [address] [place], [place] [phone] Cardiology 10/31/22 Cafe Helper Relationship Specialty Start Date End Date Ivette Grimes MD [address] [facility] [place] [address] PCP - General Family Medicine 11/21/13 [facility] [address] [place] [address] Pharmacist Pharmacy 05/19/20 Jemal Orozco MD [address] [place], [place] [phone] Cardiology 10/31/22 Team Status: Active Member Role Status Dates Dr. Ivette Grimes MD Family Provider Active Team Status: Inactive Member Role Status Dates Dr. Bibiana Rehman DC Attending Provider Active Team Status: Inactive Member Role Status Dates Dr. Ivette Grimes MD Primary Care Provider Active Adelina Marinelli MECHANICAL DEVELOPMENT ENGINEER, MECHANICAL DEVELOPMENT ENGINEER-C Attending Provider, Referrin g Provider Active [...] MD Admit Provider, Attending Prov ider Active Cafe Helper Relationship Specialty Start Date End Date Ivette Grimes MD [address] [facility] [address] PCP - General Family Medicine 11/21/13 [facility] [address] [facility] [place] [address] Pharmacist Pharmacy 05/19/20 Jemal Orozco MD [address] [place], [place] [phone] Cardiology 10/31/22 Cafe Helper Relationship Specialty Start Date End Date Ivette Grimes MD [address] [facility] [address] PCP - General Family Medicine 11/21/13 [facility] [address] [facility] [place] [address] Pharmacist Pharmacy 05/19/20 Jemal Orozco MD [address] [place] [address] Cardiology 10/31/22 Cafe Helper Relationship Specialty Start Date End Date Ivette Grimes MD [address] [place] [address] PCP - General Family Medicine 11/21/13 [facility] [address] [facility] [place] [address] Pharmacist Pharmacy 05/19/20 Jemal Orozco MD [address] [place] [address] Cardiology 10/31/22 Cafe Helper Relationship Specialty Start Date End Date Ivette Grimes MD [address] [place], [place] 465191 PCP - General Family Medicine 11/21/13 [facility] [address] [place], [place] 641281 Pharmacist Pharmacy 05/19/20 Jemal Orozco MD [address] [place] [address] Cardiology 10/31/22 Team Status: Inactive Member Role [...] MD Admit Provider, Attending Prov ider Active Cafe Helper Relationship Specialty Start Date End Date Ivette Grimes MD [address] [place], [place] 375881 PCP - General Family Medicine 11/21/13 [facility] [address] [place], [place] 831871 Pharmacist Pharmacy 05/19/20 Jemal Orozco MD [address] [place], [place] [phone] Cardiology 10/31/22 Cafe Helper Relationship Specialty Start Date End Date Ivette Grimes MD [address] [place] [address] PCP - General Family Medicine 11/21/13 [facility] [address] [place] [address] Pharmacist Pharmacy 05/19/20 Jemal Orozco MD [address] [place], [place] 6445395 Cardiology 10/31/22 Cafe Helper Relationship Specialty Start Date End Date Ivette Grimes MD [address] [place] [address] PCP - General Family Medicine 11/21/13 [facility] [address] [place] [address] Pharmacist Pharmacy 05/19/20 Jemal Orozco MD [address] [place] [address] Cardiology 10/31/22 Team Status: Inactive Member Role Status Dates Dr. Ivette Grimes MD Primary Care Provider Active Dr. Luan Zepeda DO Emergency Provider Active Cafe Helper Relationship Specialty Start Date End Date Ivette Grimes MD [address] [place] [address] PCP - General Family Medicine 11/21/13 [facility] [address] [place] [address] Pharmacist Pharmacy 05/19/20 Jemal Orozco MD [address] [place], [place] [phone] Cardiology 10/31/22 Cafe Helper Relationship Specialty Start Date End Date Ivette Grimes MD [address] [place] [address] PCP - General Family Medicine 11/21/13 [facility] [address] [place] [address] Pharmacist Pharmacy 05/19/20 Jemal Orozco MD [address] [place], [place] 6354695 Cardiology 10/31/22 Cafe Helper Relationship Specialty Start Date End Date Ivette Grimes MD [address] [place] [address] PCP - General Family Medicine 11/21/13 [facility] [address] [place] [address] Pharmacist Pharmacy 05/19/20 Jemal Orozco MD [address] [place], [place] [phone] Cardiology 10/31/22 Team Status: Inactive Member Role Status Dates Dr. Ivette Grimes MD Primary Care Provider Active Dr. Luan Zepeda DO Attending Provider, Roxane go Active Cafe Helper Relationship Specialty Start Date End Date Ivette Grimes MD [address] [place] [address] PCP - General Family Medicine 11/21/13 Jemal Orozco MD [address] [place], [place] [phone] Cardiology 10/31/22 Cafe Helper Relationship Specialty Start Date End Date Ivette Grimes MD [address] [place], [place] 380611 PCP - General Family Medicine 11/21/13 Jemal Orozco MD [address] [place] [address] Cardiology 10/31/22 Cafe Helper Relationship Specialty Start Date End Date Ivette Grimes MD [address] [place] [address] PCP - General Family Medicine 11/21/13 Jemal Orozco MD [address] [place], [place] 9783495 Cardiology 10/31/22 Cafe Helper Relationship Specialty Start Date End Date Ivette Grimes MD [address] [place], [place] 985231 PCP - General Family Medicine 11/21/13 Jemal Orozco MD [address] [place], [place] [phone] Cardiology 10/31/22 Cafe Helper Relationship Specialty Start Date End Date Ivette Grimes MD [address] [place] [address] PCP - General Family Medicine 11/21/13 Jemal Orozco MD [address] [place] [address] Cardiology 10/31/22 Cafe Helper Relationship Specialty Start Date End Date Ivette Grimes MD [address] [place] [address] PCP - General Family Medicine 11/21/13 Jemal Orozco MD [address] [place] [address] Cardiology 10/31/22 Cafe Helper Relationship Specialty Start Date End Date Ivette Grimes MD [address] [place], [place] 097781 PCP - General Family Medicine 11/21/13 Jemal Orozco MD [address] [place] [address] Cardiology 10/31/22 Cafe Helper Relationship Specialty Start Date End Date Ivette Grimes MD [address] [place] [address] PCP - General Family Medicine 11/21/13 Jemal Orozco MD [address] [place] [address] Cardiology 10/31/22 Cafe Helper Relationship Specialty Start Date End Date Ivette Grimes MD [address] [place], [place] 643561 PCP - General Family Medicine 11/21/13 Jemal Orozco MD [address] [place], [place] 1590395 Cardiology 10/31/22 Cafe Helper Relationship Specialty Start Date End Date Ivette Grimes MD [address] [place], [place] 836151 PCP - General Family Medicine 11/21/13 Jemal Orozco MD [address] [place], [place] 1862595 Cardiology 10/31/22 Cafe Helper Relationship Specialty Start Date End Date Ivette Grimes MD [address] [place], [place] 846251 PCP - General Family Medicine 11/21/13 Jemal Orozco MD [address] [place], [place] 2659395 Cardiology 10/31/22 Cafe Helper Relationship Specialty Start Date End Date Ivette Grimes MD [address] [place] [address] PCP - General Family Medicine 11/21/13 Jemal Orozco MD [address] [place], [place] 8591595 Cardiology 10/31/22 Cafe Helper Relationship Specialty Start Date End Date Ivette Grimes MD [address] [place] [address] PCP - General Family Medicine 11/21/13 Jemal Orozco MD [address] [place], [place] [phone] Cardiology 10/31/22 Cafe Helper Relationship Specialty Start Date End Date Ivette Grimes MD [address] [place], [place] 531111 PCP - General Family Medicine 11/21/13 Jemal Orozco MD [address] [place], [place] 7589995 Cardiology 10/31/22 Cafe Helper Relationship Specialty Start Date End Date Ivette Grimes MD [address] [place], [place] 625311 PCP - General Family Medicine 11/21/13 Jagdish Carballo [facility] [address] [place], [place] 235671 Pharmacist Pharmacy 05/19/20 12/25/23 Jemal Orozco MD [address] [place], [place] 0572695 Cardiology 10/31/22 Cafe Helper Relationship Specialty Start Date End Date Ivette Grimes MD [address] [place], [place] 218841 PCP - General Family Medicine 11/21/13 Jemal Orozco MD [address] [place], [place] 7059795 Cardiology 10/31/22 Cafe Helper Relationship Specialty Start Date End Date Ivette Grimes MD [address] [place], [place] 265681 PCP - General Family Medicine 11/21/13 Jemal Orozco MD [address] [place] [address] Cardiology 10/31/22 Cafe Helper Relationship Specialty Start Date End Date Ivette Grimes MD [address] [place], [place] 234991 PCP - General Family Medicine 11/21/13 Jemal Orozco MD [address] [place], [place] 7935395 Cardiology 10/31/22 Cafe Helper Relationship Specialty Start Date End Date Ivette Grimes MD [address] [place], [place] 597391 PCP - General Family Medicine 11/21/13 Jemal Orozco MD [address] [place], [place] 12690[address] Cardiology 10/31/22 Cafe Helper Relationship Specialty Start Date End Date Ivette Grimes MD [address] [place], [place] 417921 PCP - General Family Medicine 11/21/13 Jemal Orozco MD [address] [place] [address] Cardiology 10/31/22 Cindy Edouard, THOM.TERRITORY SALES PROFESSIONAL [address] [place] [address] Apprentice Painter Neckties Family Medicine 10/12/24 Lubna De La Garza APRN.TERRITORY SALES PROFESSIONAL [address] [place] [address] Apprentice [employer] Family Medicine 10/12/24 Cafe Helper Relationship Specialty Start Date End Date Ivette Grimes MD [address] [place] [address] PCP - General Family Medicine 11/21/13 Jemal Orozco MD [address] [place], [place] 3343995 Cardiology 10/31/22 Cindy Edouard, FOSTER CARE THERAPIST.TERRITORY SALES PROFESSIONAL [address] [place] [address] Apprentice [employer] Family Medicine 10/12/24 Lubna De La Garza FOSTER CARE THERAPIST.TERRITORY SALES PROFESSIONAL [address] [place] [address] Apprentice Painter Neckties [facility] Medicine 10/12/24 Cafe Helper Relationship Specialty Start Date End Date Ivette Grimes MD [address] [place] [address] PCP - General Family Medicine 11/21/13 Jemal Orozco MD [address] [place] [address] Cardiology 10/31/22 Cindy Edouard, FOSTER CARE THERAPIST.TERRITORY SALES PROFESSIONAL [address] [place] [address] Apprentice [employer] Family Medicine 10/12/24 Lubna De La Garza, FOSTER CARE THERAPIST.TERRITORY SALES PROFESSIONAL [address] [place] [address] Apprentice [employer] Family Medicine 10/12/24 Cafe Helper Relationship Specialty Start Date End Date Ivette Grimes MD [address] [place] [address] PCP - General Family Medicine 11/21/13 Jemal Orozco MD [address] [place], [place] 1075895 Cardiology 10/31/22 Cindy Edouard, FOSTER CARE THERAPIST.TERRITORY SALES PROFESSIONAL [address] [place] [address] Apprentice [employer] Family Medicine 10/12/24 Lubna De La Garza FOSTER CARE THERAPIST.TERRITORY SALES PROFESSIONAL [address] [place] [address] Apprentice [employer] Family Medicine 10/12/24 Cafe Helper Relationship Specialty Start Date End Date Ivette Grimes MD [address] [place], [place] 780111 PCP - General Family Medicine 11/21/13 Jemal Orozco MD [address] [place], [place] [phone] Cardiology 10/31/22 Cindy Edouard, FOSTER CARE THERAPIST.TERRITORY SALES PROFESSIONAL [address] [place] [address] Apprentice [employer] Family Medicine 10/12/24 Lubna De La Garza, FOSTER CARE THERAPIST.TERRITORY SALES PROFESSIONAL [address] [place] [address] Apprentice [employer] Family Medicine 10/12/24 Cafe Helper Relationship Specialty Start Date End Date Ivette Grimes MD [address] [place] [address] PCP - General Family Medicine 11/21/13 Jemal Orozco MD [address] [place], [place] [phone] Cardiology 10/31/22 Cindy Edouard APRN.TERRITORY SALES PROFESSIONAL [address] [place] [address] [facility] 10/12/24 Lubna De La Garza FOSTER CARE THERAPIST.TERRITORY SALES PROFESSIONAL [address] [place] [address] [facility] 10/12/24 Cafe Helper Relationship Specialty Start Date End Date Ivette Grimes MD [address] [place], [place] 842621 PCP - General Family Medicine 11/21/13 Jemal Orozco MD [address] [place], [place] 0773695 Cardiology 10/31/22 Cindy Edouard FOSTER CARE THERAPIST.TERRITORY SALES PROFESSIONAL [address] [place] [address] [facility] 10/12/24 Lubna De La Garza APRN.TERRITORY SALES PROFESSIONAL [address] [place] [address] [facility] 10/12/24 Cafe Helper Relationship Specialty Start Date End Date Ivette Grimes MD [address] [place] [address] PCP - General Family Medicine 11/21/13 Jemal Orozco MD [address] [place], [place] 3789295 Cardiology 10/31/22 Cindy Edouard APRN.TERRITORY SALES PROFESSIONAL [address] [facility] [place] [address] [facility] 10/12/24 Lubna De La Garza APRN.TERRITORY SALES PROFESSIONAL [address] [facility] [place] [address] [facility] 10/12/24 Cafe Helper Relationship Specialty Start Date End Date Ivette Grimes MD [address] [place] [address] PCP - General Family Medicine 11/21/13 Jemal Orozco MD [address] [place], [place] [phone] Cardiology 10/31/22 Cindy Edouard FOSTER CARE THERAPIST.TERRITORY SALES PROFESSIONAL [address] [place] [address] [facility] 10/12/24 Lubna De La Garza FOSTER CARE THERAPIST.TERRITORY SALES PROFESSIONAL [address] [place] [address] [facility] 10/12/24 Cafe Helper Relationship Specialty Start Date End Date Ivette Grimes MD [address] [place] [address] PCP - General Family Medicine 11/21/13 Jemal Orozco MD [address] [place], [place] 7906395 Cardiology 10/31/22 Cindy Edouard FOSTER CARE THERAPIST.TERRITORY SALES PROFESSIONAL [address] [place] [address] [facility] 10/12/24 Lubna De La Garza APRN.TERRITORY SALES PROFESSIONAL [address] [place] [address] [facility] 10/12/24 Cafe Helper Relationship Specialty Start Date End Date Ivette Grimes MD [address] [place] [address] PCP - General Family Medicine 11/21/13 Jemal Orozco MD [address] [place] [address] Cardiology 10/31/22 Cindy Edouard APRN.TERRITORY SALES PROFESSIONAL [address] [place] [address] [facility] 10/12/24 Lubna De La Garza FOSTER CARE THERAPIST.TERRITORY SALES PROFESSIONAL [address] [place] [address] [facility] 10/12/24 Cafe Helper Relationship Specialty Start Date End Date Ivette Grimes MD [address] [place] [address] PCP - General Family Medicine 11/21/13 Jemal Orozco MD [address] [place], [place] [phone] Cardiology 10/31/22 Cindy Edouard APRN.TERRITORY SALES PROFESSIONAL [address] [place] [address] [facility] 10/12/24 Lubna De La Garza APRN.TERRITORY SALES PROFESSIONAL [address] [place] [address] Apprentice [employer] Family Medicine 10/12/24 Team Status: Active Member [...] January 28, 2025 End: January 28, 2025 Cafe Helper Relationship Specialty Start Date End Date Ivette Grimes MD [address] [facility] [place], [place] [address] PCP - General Family Medicine 11/21/13 Jemal Orozco MD [address] [place], [place] [phone] Cardiology 10/31/22 Cindy Edouard APRN.TERRITORY SALES PROFESSIONAL [address] [place] [address] Apprentice [employer] Family Medicine 10/12/24 Lubna De La Garza APRN.TERRITORY SALES PROFESSIONAL [address] [place] [address] [facility] 10/12/24 Cafe Helper Relationship Specialty Start Date End Date Ivette Grimes MD [address] [place] [address] PCP - General Family Medicine 11/21/13 Jemal Orozco MD [address] [place], [place] [phone] Cardiology 10/31/22 Cindy Edouard FOSTER CARE THERAPIST.TERRITORY SALES PROFESSIONAL [address] [facility] [place] [address] Apprentice Pain[employer] [facility] Medicine 10/12/24 Lubna De La Garza FOSTER CARE THERAPIST.TERRITORY SALES PROFESSIONAL [address] [facility] [address] Apprentice [facility] 10/12/24 Team Status: Inactive Member Role [...] March 22, 2025 End: March 22, 2025 Cafe Helper Relationship Specialty Start Date End Date Ivette Grimes MD [address] [place] [address] PCP - General Family Medicine 11/21/13 Jemal Orozco MD [address] [place], [place] [phone] Cardiology 10/31/22 Cindy Edouard, FOSTER CARE THERAPIST.TERRITORY SALES PROFESSIONAL [address] [place], [place] [address]73181 [facility] 10/12/24 Lubna De La Garza FOSTER CARE THERAPIST.TERRITORY SALES PROFESSIONAL [address] [place], [place] 9689[address] [facility] 10/12/24 Team Status: Inactive Member Role Status Dates Dr. Ivette Grimes MD Primary Care Provider Active Start: April 05, 2025 End: April 05, 2025 Dr. Ivette Grimes MD Referring Provider Active Start: April 05, 2025 End: April 05, 2025 Dr. Bibiana Rehman , [place] Attending Provider Active S tart: April 05, 2025 End: April 05, 2025 Cafe Helper Relationship Specialty Start Date End Date Ivette Grimes MD [address] [place], [place] 838751 PCP - General Family Medicine 11/21/13 Jemal Orozco MD [address] [place], [place] [phone] Cardiology 10/31/22 Cindy Edouard, FOSTER CARE THERAPIST.TERRITORY SALES PROFESSIONAL [address] [facility], [place] [address] [facility] 10/12/24 Lubna De La Garza FOSTER CARE THERAPIST.TERRITORY SALES PROFESSIONAL [address] [facility] [place] [address] [facility] 12/9/24 Team Status: Active Member Role Status [...] June 01, 2025 End: June 01, 2025 Cafe Helper Relationship Specialty Start Date End Date Ivette Grimes MD [address] [place], [place] 654926[address] PCP - General Family Medicine 11/21/13 Jemal Orozco MD [address] [place] [address] Cardiology 10/31/22 Cindy Edouard, THOM.TERRITORY SALES PROFESSIONAL [address] [place], [place] 164611 Apprentice [employer] Family Medicine 10/12/24 Lubna De La Garza, FOSTER CARE THERAPIST.TERRITORY SALES PROFESSIONAL [address] [place], [place] [id number] [employer]rentice [facility] 10/12/24 Team Status: Inactive Member [...] June 09, 2025 End: June 09, 2025 Cafe Helper Relationship Specialty Start Date End Date Ivette Grimes MD [address] [place], [place] [id number] PCP - General Family Medicine 11/21/13 Jemal Orozco MD [address] [place] [address] Cardiology 10/31/22 Cindy Edouard, [employer] THERAPIST.TERRITORY SALES PROFESSIONAL [address] [place], [place] [address] [employer] 10/12/24 Lubna De La Garza [employer] THERAPIST.TERRITORY SALES PROFESSIONAL [address] [place], [place] [address] Apprentice [facility] 10/12/24 Team Status: Inactive Member [...] Provider Active Sta rt: July 05, 2025 Cafe Helper Relationship Specialty Start Date End Date Ivette Grimes MD [address] [place], [place] [id number] PCP - General Family Medicine 11/21/13 Jemal Orozco MD [address] [place] [address] Cardiology 10/31/22 Cindy Edouard APRN.TERRITORY SALES PROFESSIONAL [address] [place], [place] [id number] [facility]24 Lubna De La Garza [employer] THERAPIST.TERRITORY SALES PROFESSIONAL [address] [place], [place] [id number] [facility] 10/12/24 Team Status: Inactive Member Role/Relationship Status [...] Active Start: May 11, 2025 Dr. Ivette rGimes MD Attending Provider Active Start: May 11, [...] July 09, 2025 End: July 09, 2025 Cafe Helper Relationship Specialty Start Date End Date Ivette Grimes MD [address] [place], [place] [id number] PCP - General Family Medicine 11/21/13 Jemal Orozco MD [address], [place] [id number] Cardiology 10/31/22 Cindy Edouard, [employer] THERAPIST.TERRITORY SALES PROFESSIONAL [address] [place], [place] [id number] [employer]rent[facility] 10/12/24 Lubna De La Garza, [employer] THERAPIST.TERRITORY SALES PROFESSIONAL [address] [place] [address] Apprentice [facility] 10/12/24 Cafe Helper Relationship Specialty Start Date End Date Ivette Grimes MD [address] [place], [place] [id number] PCP - General Family Medicine 11/21/13 Jemal Orozco MD [address] [place] [address] Cardiology 10/31/22 Cindy Edouard APRN.TERRITORY SALES PROFESSIONAL [address] [place] [address] Apprentice [employer] [facility] 10/12/24 Lubna De La Garza [employer] THERAPIST.TERRITORY SALES PROFESSIONAL [address] [place] [address] Apprentice [employer] [facility] 10/12/24 Team Status: Active Member Role/Relationship Status [...] section and content) DATE CREATED AUTHOR 01/25/2023 [facility] DATE CREATED AUTHOR AUTHOR'S ORGANIZ ATION 09/10/2025 [facility] DATE CREATED AUTHOR AUTHOR'S ORGANIZ ATION 09/17/2025 [facility] Inactive Administered Medications - up [...] BE BASED ON THE PRIMARY CLINICAL RECORDS. [facility] [employer] [facility]. provides no warranty or guarantee of the accuracy or completeness of information in this document.
[2025-09-28] VITALS: BP 118/67; PULSE 70; RESP 18; TEMP 36.7; O2SAT 97
--- OUTSIDE RECORDS SUMMARY | 2025-09-28 00:15 | XMS RPT_ITS | CCD ---
Author Organization [facility] Care Team Providers Care 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 Name Role Phone Dossi Bibiana BEEBE Unavailable Roya Dixon Unavailable Roya Dixon Unavailable Amparo Hitchcock MD Unavailable [phone] Ivette Grimes MD Primary Care Provider [facility], Keti Unavailable Dr. Ivette Grimes Primary Care Provider Dr. Ivette Grimes Referring Provider Dr. Bibiana Rehman Attending Provider [phone] Dr. Munir Siddiqui Attending Provider Dr. Marin Villalpando Attending Provider [phone] Dr. Munir Lucas Attending Provider Dr. Sam Guadarrama Referring Provider Ivette Grimes MD Primary Care Provider [facility], [place] [facility]available [facility], Keti Unavailable Dr. Ivette Grimes Primary Care Provider Dr. Ivette Grimes Referring Provider Dr. Bibiana Rehman Attending Provider [phone] Ivette Grimes MD Primary Care Provider Dr. Ivette Grimes Primary Care Provider Dr. Ivette Grimes Referring Provider Dossi, Dr. Mccarty Attending Provider [phone] Dr. Primo Ceron Attending Provider Laporte, Dr. Mcgarry Primary Care Provider Sydney, Dr. Mcgarry Referring Provider Dossi, Dr. Mccarty Attending Provider [phone] Cesar, Dr. Churchill Attending Provider Laporte, Dr. Mcgarry Primary Care Provider Laporte, Dr. Mcgarry Referring Provider Dossi, Dr. Mccarty Attending Provider [phone] Sydney, Dr. Mcgarry Primary Care Provider Laporte, Dr. Mcgarry Referring Provider Dossi, Dr. Mccarty Attending Provider [phone] Dr. Primo Ceron Attending Provider Cesar, Dr. Churchill Attending Provider [phone] Laporte Ivette SHEARER Primary Care Provider [facility], Keti Unavailable Laporte, Dr. Mcgarry Primary Care Provider Laporte, Dr. Mcgarry Referring Provider Dossi, Dr. Mccarty Attending Provider [phone] Ernesto SHEARER, Jemal Unavailable Laporte, Dr. Mcgarry Primary Care Provider Laporte, Dr. Mcgarry Referring Provider Dossi, Dr. Mccarty Attending Provider [phone] Laporte, Dr. Mcgarry Primary Care Provider Laporte, Dr. Mcgarry Referring Provider Dossi, Dr. Mccarty Attending Provider [phone] Jess ADVANCED PRACTICE NURSE, FADUMO Ba Attending Provider Jyoti, Dr. Banuelos Attending Provider [phone] ELLE RASHEED Attending Unavailable SAM GUADARRAMA Referring Unavailable [facility], IVETTE James Primary Care Unavailable RASHEED, [...] Unavailable SYDNEY, IVETTE James Primary Care Unavailable Laporte, Dr. Mcgarry Primary Care Provider Laporte, Dr. Mcgarry Referring Provider Dossi, Dr. Mccarty Attending Provider [phone] Laporte, Dr. Mcgarry Primary Care Provider Laporte, Dr. Mcgarry Referring Provider Dossi, Dr. Mccarty Attending Provider [phone] Sydney, Dr. Mcgarry Primary Care Provider Laporte, Dr. Mcgarry Referring Provider Dossi, Dr. Mccarty Attending Provider [phone] Laporte, Dr. Mcgarry Primary Care Provider Laporte, Dr. Mcgarry Referring Provider Dossi, Dr. Mccarty Attending Provider [phone] Laporte, Dr. Mcgarry Primary Care Provider Laporte, Dr. Mcgarry Referring Provider Dossi, Dr. Mccarty Attending Provider [phone] Referred, Self Primary Care Provider Unavailabl e Referred, Self Referring Provider Unavailable [facility], Keti Unavailable Dosparam, Dr. Mccarty Attending Provider [phone] Referred, Self Primary Care Provider Unavailabl e Referred, Self Referring Provider Unavailable Laporte, Dr. Mcgarry Primary Care Provider Jyoti, Dr. Banuelos Attending Provider Dr. Sosa Mendez Referring Provider Dr. Niurka Kendall Emergency Provider [phone] Vanessa, Dr. Sosa Chirinos Admit Provider Korgarland, Dr. Sosa Chirinos Attending Provider [phone] [place]orgar[place], Dr. Sosa Chirinos Other Provider Sydney, Dr. Mcgarry Referring Provider Ori, Dr. Mccarty Attending Provider Dossi, Dr. Mccarty Attending Provider Sydney, Dr. Mcgarry Primary Care Provider Dr. Primo Ceron Attending Provider Sydney, Dr. Mcgarry Primary Care Provider Sydney, Dr. Mcgarry Referring Provider Osmany, Dr. Tillman Attending Provider Ivette Grimes MD Primary Care Provider [facility], Keti Unavailable Haagen FILTER FILLER.LOOP TACKER, Cindy Unavailable Suppan FILTER FILLER.LOOP TACKER, Lubna A Unavailable Suppan FILTER FILLER.LOOP TACKER, Lubna A Unavailable Suppan FILTER FILLER.LOOP TACKER, Lubna A Unavailable Dr. Ivette Grimes MD Primary Care Provider Dr. Sam Pearl MD Attending Provider Dr. Sam Pearl MD Emergency Provider Dr. Ivette Grimes MD Referring Provider Dossi CONCEPCIÓN, Dr. Mccarty Attending Provider Dr. Buddy Hall DO Attending Provider Dr. Buddy Hall DO Emergency Provider Tanya ADVANCED PRACTICE NURSE-CJenni Attending Provider Tanya ADVANCED PRACTICE NURSE-CJenni Referring Provider Dr. Ivette Grimes MD Attending [...] Provider Jose SHEARER, Dr. Escobar Other Provider [phone] Yaneth SHEARER, Dr. Childress Other Provider Franko SHEARER, Dr. Bennett Other Provider [phone] Carlos A SHEARER, Dr. Khan Other Provider Ian SHEARER, Dr. Mcdermott Other Provider [phone] Nuno SHEARER, Dr. Pedersen Other Provider Franca SHEARER, Dr. Saldivar Other Provider Chhaya SHEARER, Dr. Jones Other Provider Unavailabl dinh Ko MD, Dr. Meza Other Provider [phone] Rebel SHEARER, Dr. August Other Provider Bin SHEARER, Dr. Live Other Provider Svtelana SHEARER, Dr. Ramirez Other Provider Jules LEMUS, Dr. Mejía Other Provider Lulú SHEARER, Dr. Acosta Other Provider [phone] Derek SHEARER, Dr. Regalado Other Provider Rajendra LEMUS, Dr. Kaur Other Provider Newton SHEARER, Dr. Alcantara Other Provider José Antonio SHEARER, Dr. Valentino Other Provider Manuel SHEARER, Dr. Mcgarry Other Provider [phone] Reji SHEARER, Dr. Shana Bianchi Other Provider [phone] Hunter SHEARER, Dr. Stephen Attending Provider Unavaila [...] Franko SHEARER, Dr. Sabrina Other Provider [phone] Carlos A SHEARER, Dr. Khan Other Provider [...] Provider Lulú SHEARER, Dr. Acosta Other Provider [phone] Derek SHEARER, Dr. Regalado Other Provider Rajendra LEMUS, Dr. Kaur Other Provider Newton SHEARER, Dr. Alcantara Other Provider [phone] José Antonio SHEARER, Dr. Valentino Other Provider Manuel SHEARER, Dr. Mcgarry Other Provider Arleth SHEARER, Dr. Jose Juan Alvarado Attending [...] MD, Dr. Jose Juan Alvarado Nurse Practitioner mAos SHEARER, Dr. Salinas Nurse Practitioner [phone] Jo SHEARER, Dr. Daily Nurse Practitioner Osmany SHEARER, Dr. Tillman Nurse Practitioner [phone] Sreekanth LEMUS, Dr. More Nurse Practitioner Rosalva SHEARER, Dr. Brittany Pfeiffer Nurse Practitioner Jose SHEARER, Dr. Escobar Nurse Practitioner Yaneth SHEARER, Dr. Childress Nurse Practitioner [phone] Franko SHEARER, Dr. Bennett Nurse Practitioner Carlos A SHEARER, Dr. Khan Nurse Practitioner Ian SHEARER, Dr. Mcdermott Nurse Practitioner Nuno SHEARER, Dr. Pedersen Nurse Practitioner Franca SHEARER, Dr. Saldivar Nurse Practitioner [phone] Chhaya SHEARER, Dr. Jones Nurse Practitioner Unavail jamila Ko MD, Dr. Meza Nurse Practitioner [phone] Rebel SHEARER, Dr. August Nurse Practitioner Bin SHEARER, Dr. Live Nurse Practitioner Svetlana SHEARER, Dr. Ramirez Nurse Practitioner [phone] Jules LEMUS, Dr. Mejía Nurse Practitioner Lulú SHEARER, Dr. Acosta Nurse Practitioner [phone] Derek SHEARER, Dr. Regalado Nurse Practitioner Rajendra LEMUS, Dr. Kaur Nurse Practitioner Newton SHEARER, Dr. Alcantara Nurse Practitioner [phone] José Antonio SHEARER, Dr. Valentino Nurse Practitioner Manuel SHEARER, Dr. Mcgarry Nurse Practitioner [phone] Arleth SHEARER, Dr. Jose Juan Alvarado Attending [...] Mollison, Brett Attending Unavailable DinoisonBrett Referring Unavailable Laporte, Ivette Referring Unavailable Laporte, Ivette Attending Unavailable Sydney, Ivette Primary Care Unavailable Mollison, Brett Referring Unavailable Mollison, Brett Attending Unavailable Laporte, Ivette Primary Care Unavailable Sydney, Ivette Referring Unavailable Laporte, Ivette Attending Unavailable Sydney, Ivette Primary Care Unavailable Assessment, Health Risk Referring Unavaila ble Assessment, Health Risk Attending Unavaila ble Sydney, Ivette Primary Care Unavailable Laporte, Ivette Primary Care Unavailable Laporte, Ivette Referring Unavailable Laporte, Ivette Attending Unavailable Laporte, Ivette Primary Care Unavailable Sydney, Ivette Referring Unavailable Bibiana Rehman Attending Unavailable Laporte, [facility] Primary Care Unavailable Jenni Jain Referring Unavailable Jenni Jain Attending Unavailable Laporte, Ivette Primary Care Unavailable Sydney, Ivette Referring Unavailable Saundra Christensen Attending Unavailable Laporte, Ivette Primary Care Unavailable Laporte, Ivette Referring Unavailable Dossi, Bibiana Attending Unavailable Laporte, Ivette Primary Care Unavailable Laporte, Ivette Referring Unavailable Dossi, Bibiana Attending Unavailable Laporte, Ivette Primary Care Unavailable Sydney, Ivette Referring Unavailable Dossi, Bibiana Attending Unavailable Laporte, Ivette Primary Care Unavailable Sydney, Ivette Referring Unavailable Jess DENNIS, Jesenia Attending Unavailable Mollison, Brett Referring Unavailable Vin Montes Attending Unavailable Laporte, Ivette Primary Care Unavailable Laporte, Ivette Primary Care Unavailable Buddy Hall Attending Unavailable Laporte, Ivette Primary Care Unavailable Sydney, Ivette Referring Unavailable Sydney, Ivette Attending Unavailable Sydney, Ivette Attending Unavailable Laporte, Ivette Referring Unavailable Laporte, Ivette Primary Care Unavailable Shana Mendoza Admitting Unavailable Shana Mendoza Consulting Unavailable Brittany Harrison Attending Unavailable Laporte, Ivette Primary Care Unavailable Jose Juan Reinoso Consulting Unavailable Brittany Harrison Consulting Unavailable Sydney, Ivette Primary Care Unavailable Laporte, Ivette Referring Unavailable Molldeep, Brett Attending Unavailable Sydney, Ivette Referring Unavailable Laporte, Ivette Primary Care Unavailable Dossi, Bibiana Attending Unavailable Laporte, Ivette Primary Care Unavailable Laporte, Ivette Referring Unavailable Rivka Malloy Attending Unavailable Laporte, Ivette Primary Care Unavailable RadhanesSaundra mahmood Referring Unavailable Saundra Christensen Attending Unavailable Shana Mendoza Consulting Unavailable Brittany Harrison Attending Unavailable Shana Mendoza Admitting Unavailable Laporte, Ivette Primary Care Unavailable Jose Juan Reinoso Consulting Unavailable Laporte, Ivette Primary Care Unavailable Sam Pearl Attending Unavailable Laporte, Ivette Referring Unavailable Dossi, Bibiana Attending Unavailable Laporte, Ivette Primary Care Unavailable Laporte, Ivette Referring Unavailable Mollison, Brett Attending Unavailable Laporte, Ivette Primary Care Unavailable Laporte, Ivette Referring Unavailable Sydney, Ivette Primary Care Unavailable Dossi, Bibiana Attending Unavailable Laporte, Ivette Primary Care Unavailable Laporte, Ivette Referring Unavailable Dossi, Bibiana Attending Unavailable Laporte, Ivette Referring Unavailable Mollison, Brett Attending Unavailable Laporte, Ivette Primary Care Unavailable Sydney, Ivette Referring Unavailable Dossi, Bibiana Attending Unavailable Laporte, Ivette Primary Care Unavailable Sydney, Ivette Referring Unavailable Mollison, Brett Attending Unavailable Laporte, Ivette Primary Care Unavailable [facility] Referring Unavailable Brett Quiroga Attending Unavailable [facility] Primary Care Unavailable [facility] Referring Unavailable Saundra Christensen Attending Unavailable [facility] Primary Care Unavailable [facility] Referring Unavailable Jesenia Mercado NP Attending Unavailable [facility] Primary Care Unavailable [facility] Primary Care Unavailable Saundra Christensen Attending Unavailable Saundra Christensen Consulting Unavailable Saundra Christensen Referring Unavailable Shana Mendoza Attending Unavailable [facility] Unavailable Jose Juan Reinoso Attending Unavailable [...] Quiroga Referring Unavailable Brett Quiroga Attending Unavailable [facility] Primary Care Unavailable Allergies Allergy Classification Reported Allergen(s) Allergy Type Date of Onset Reaction(s) Facility (20 sources) Betamethasone; Translations: [BETAMETHASONE DIPROPIONATE] Drug Allergy 12-21-19 [facility], [facility] Work Phone: (20 sources) Lidocaine; Translations: [LIDOCAINE] Drug Allergy 12-24-19 [facility] Work Phone: (7 sources) Corticosteroids Allergy to substance 01-01-20 [facility] Work Phone: (20 sources) Glucocorticoid Receptor Agonists Allergy to substance 10-16-20 [facility] (20 sources) dapagliflozin; Translations: [DAPAGLIFLOZIN] Drug Allergy 08-05-20 GI Upset [facility] (20 sources) metFORMIN; Translations: [METFORMIN] Drug Allergy 08-05-20 GI [facility] (1 source) Corticosteroids Drug allergy (disorder) 09-16-20 [facility] (1 source) Lidocaine Drug Allergy 09-16-20 [facility] Medications Current Medications Medication Drug Class(es) Dates Sig (Normalized) Sig (Original) [id number] 200 actuat albuterol 0.09 mg/actuat metered dose [...] BIPAP Bipap -Bilevel Positive Airway Pressure ([facility] Informational Use Only) device (2 sources) Start: 07-06-2025 Bipap -Bilevel Positive Airway Pressure ([facility] Informational Use Only) device Active 0 [...] Active Cpap - Continuous Positive Airway Pressure([facility] Informational Use Only) device (2 sources) Start: 07-06-2025 Cpap - Continuous Positive Airway Pressure([facility] Informational Use Only) device Active 0 [...] Comment on above: Take 1 tablet by [facility] once daily. FLUoxetine 20 mg [...] Comment on above: Take 1 capsule by [facility] once daily for 7 days, THEN 2 capsules once daily. Take 1 capsule by [facility] once daily. gabapentin 300 mg oral [...] 3:46pm Start: 05-22-2017 take 1 capsule by [facility] three times daily GABAPENTIN 300 MG CAPS 1 po tid GABAPENTIN [id number] Jackson Brown Comment on above: Take 2 capsules by [facility] twice daily for 90 days. Take 1 tablet in AM, afternoon and bedtime. If after 2 days symptoms persist, increase to 1 tab in AM, afternoon and 2 tabs at bedtime. Take one po qhs Take 1 capsule by [facility] twice daily for 180 days. Take [...] spray(s) nasa l route twice daily Ipratropium [place] Active 2 SPRAY INTRANASAL TWICE A DAY [...] the CT contrast administration guidelines link. levonorgestrel 0.135459 mg/hr intrauterine system (20 sources) Progestin, Progestin-containing [...] Start: 09-09-2017 JOJO 13.5 MG IUD LEVONORGESTREL [id number] Amparo Hitchcock MD Comment on above: 1 [...] 2021 4:26pm must administer with a meal/food Natoma-3 Fatty Acids (Fish Oil Concentrate) 1,000 mg capsule (20 sources) Start: 02-21-2021 take 1 capsule by mouth once daily Natoma-3 Fatty Acids (Fish Oil Concentrate) 1,000 mg capsule Active 1000 MG PO DAILY February 21, 2021 9:19am Start: 02-21-2021 End: 10-16-2024 take 1 capsule by mouth once daily Natoma-3 Fatty Acids (Fish Oil Concentrate) 1,000 mg capsule Discontinued 1000 mg PO DAILY February 21, 2021 12:00am October 16, 2024 10:15pm supplement Start: 02-21-2021 End: 10-16-2024 take 1 capsule by mouth once daily Natoma-3 Fatty Acids (Fish Oil Concentrate) 1,000 mg capsule Discontinued 1000 mg PO DAILY February 21, 2021 12:00am October 16, 2024 10:15pm Start: 02-21-2021 take 1 capsule by mo ut once daily Natoma-3 Fatty Acids (Fish Oil Concentrate) 1,000 mg capsule Active 1000 MG PO DAILY February 20, 2021 11:00pm Start: 02-21-2021 take 1 capsule by mo [facility] once daily Natoma-3 Fatty Acids (Fish Oil Concentrate) 1,000 mg [...] every 8 hours as needed for nausea/vomiting. Gbtyzyiq-Vz-Qpu-Fe -FA tab (20 sources) Start: 1 take 1 tablet by mouth once daily Oklgissw-Gp-Yhp-F e-FA tab Take 1 tablet by mouth once daily. 0 03/14/2011 Active Comment on above: Take 1 tablet by ishmael once daily. kvhmqiaz-vfz-Ta-FA 1 mg capsule (20 sources) Start: 0 take 1 capsule by mouth once daily dgbmqugc-huv-Xd-F A 1 mg capsule Active 1 CAP PO DAILY April 26, 2020 10:18am Start: 04-26-2020 End: 08-05-2023 take 1 capsule by mouth once daily hhwawzta-bal-Cm-FA 1 mg capsule Discontinued 1 CAP PO DAILY April 25, 2020 11:00pm August 05, 2023 10:25am Start: 04-26-2020 End: 08-05-2023 take 1 capsule by mouth once daily mjmijpyp-yww-Ub-FA 1 mg capsule Discontinued 1 CAP PO DAILY April 26, 2020 12:00am August 05, 2023 11:25am Start: 04-26-2020 take 1 capsule by mo [facility] once daily gxbkjdqx-rnt-Qs-FA 1 mg capsule Active 1 CAP PO DAILY April 25, 2020 11:00pm Start: 04-26-2020 take 1 capsule by mo [facility] once daily bpvsrebf-tzd-Gf-FA 1 mg capsule Active 1 CAP PO DAILY April 26, 2020 12:00am rimegepant 75 mg disintegrating oral tablet (20 sources) Start: 12-26-2023 End: 09-02-2024 Comment on above: Take 1 tablet by [facility] once daily as needed. Semaglutide (2 sources) [...] as needed for muscle spasms TIZANIDINE HCL [id number] Sammy Victor OPERATIONS RESEARCH ENGINEER-C Start: 04-29-2017 End: 08-10-2022 take 1 tablet [...] every 8 hours as needed. TIZANIDINE HCL [id number] Santana IRENE Comment on above: Take 1 [...] Start: 09-09-2017 TROKENDI XR 20 0 MG UY79J-TDR TOPIRAMATE [id number] Amparo Hitchcock MD Start: 09-28-2016 End: 09-09-2017 TOPIRAMATE 15 MG CPSP 11/28 TOPIRAMATE [id number] Santana IRENE Comment on above: Take 1 [...] 09-28-2016 End: 09-09-2017 TYLENOL CAPS ACETAMINOPHEN CAPS [id number] Amparo Hitchcock MD Start: 09-28-2016 TYLENOL CAPS 2 ACETAMINOPHEN CAPS [id number] Santana IRENE acetaminophen 325 mg / HYDRO [...] one every 6 hours as needed. HYDROCODONE-ACETAMINOPHEN [id number] Santana IRENE acetaminophen 325 mg / oxyCO [...] End: 09-09-2017 DIFLUNISAL 500 MG TABS DIFLUNISAL [id number] Raghav IRENE 0.5 ml dulaglutide 1.5 mg/ml [...] Start: 09-28-2016 LORAZEPAM 1 MG TABS LORAZEPAM [id number] Santana IRENE Start: 10-27-2013 End: 04-26-2020 Comment [...] both ears once daily for 7 days. Natoma-3 Fatty Acids (20 sources) Start: 04-26-2020 End: 08-23-2020 take 500 mg by mouth once daily Natoma-3 Fatty Acids Discontinued 500 MG PO DAILY April 26, 2020 10:19am August 23, 2020 10:22am Start: 04-26-2020 End: 08-23-2020 take 500 mg by mouth once daily Natoma-3 Fatty Acids Discontinued 500 MG PO DAILY April 25, 2020 11:00pm August 23, 2020 9:22am Start: 04-26-2020 End: 08-23-2020 take 500 mg by mouth once daily Natoma-3 Fatty Acids Discontinued 500 MG PO DAILY April 26, 2020 12:00am August 23, 2020 10:22am Natoma-3 Fatty Acids (FISH OIL) 500 mg cap (20 sources) Start: 10-09-2019 End: 06-07-2025 take 1 capsule by mouth once daily Natoma-3 Fatty Acids (FISH OIL) 500 mg cap Take 1 capsule by mouth once daily. 30 capsule 11 10/09/2019 06/07/2025 Discontinued Start: 10-09-2019 take 1 capsule by mo uth once daily Natoma-3 Fatty Acids (FISH OIL) 500 mg cap Take 1 capsule by mouth once daily. 30 capsule 11 10/09/2019 Active Comment on above: Take 1 capsule by mo [facility] once daily. Natoma-3 Fatty Acids 500 mg capsule (16 sources) Start: 0 End: 0 take 1 capsule by mouth once daily Natoma-3 Fatty Acids 500 mg capsule Discontinued 500 mg PO DAILY April 26, 2020 12:00am August 23, 2020 10:22am omeprazole 20 mg delayed release oral capsule (20 sources) Proton Pump Inhibitor Start: End: Start: 04-26-2020 End: 08-10-2022 Comment on above: Take 1 capsule by mo [facility] daily before breakfast. 1/2 hr before meal. PARoxetine hydrochloride 10 mg oral tablet (20 sources) Serotonin Reuptake Inhibitor Start: End: phenazopyridine hydrochloride 200 mg oral tablet (20 sources) Start: End: phentermine hydrochloride 37.5 mg oral capsule (1 source) Sympathomimetic Amine Anorectic Start: take 1 tablet by mouth once daily ADIPEX-P 37.5 MG CAPS One tablet by mouth daily PHENTERMINE HCL [id number] Amparo Hitchcock MD potassium chloride 20 meq powder for oral solution (20 sources) Start: 025 End: predniSONE 50 mg oral tablet (5 sources) Corticosteroid Start: End: PREDNISONE 50 MG TABS 1 tablet every morning PREDNISONE [id number] Raghav IRENE pregabalin 75 mg oral capsule [...] on pill 3 times per day thereafter Kljqogyq-Ly-Irn-Fe-FA ( FORMULA) ORAL Tab (20 sources) Start: 011 take 1 tablet by mouth once daily Pslkwqzs-Oj-Rkn-Fe- FA ( FORMULA) ORAL Tab Take 1 tablet by mouth once daily. 0 03/14/2011 Active Comment on above: Take 1 tablet by [facility] once daily. Stidzfck-Ymm-Hx-Fa 1 mg capsule (16 sources) Start: End: take 1 capsule by mouth once daily Bxmtyuxi-Bpu-Tt-Fa 1 mg capsule Discontinued 1 NMA PO [...] Onset: 03-29-20 Chronic Other aftercare (2 sources) [facility] (current) use of insulin; Translations: [Type 2 [...] Obesity, Class III, BMI 40-49.9 (morbid obesity) ([facility]); Translations: [Obesity, Class III, BMI 40-49.9 (morbid obesity) ([facility])] Onset: 01-03-20 Unclassified (1 source) [...] 09-16-2025 FINGERSTICK GLU 185 mg/dL High 74-106 [facility] Comment on above: Result Comment: [place] OF PATIENT CARE PER NURSING PROTOCOL Performed By: #### L [id number] ####[facility] [id number] [place], [place], [address] Discharge Instructionon 09-04 Discharge Instruction Normal [facility] MR/POSTOP.ANEon 09-16-2025 MR/POSTOP.ANE Normal [facility] MR/ETMEVCYA5ve 09-16-2025 MR/POSTOPAN2 Normal [facility] Operative Reporton Operative Report Normal [facility] ,Urineon 09-16-2025 Beta HCG ( test) Ql (U) Negative [facility] Comment on above: Result Comment: Very dilute urine specimens, as indicated by a low specificgravity, may not contain congressional representative levels of hCG.If is still suspected, a first morning urinespecimen should be collected 48 hours later and tested. Performed By: #### L [id number] ####[facility] [id number] [place], [place], [address] MR/PAT.ANEon 09-10-2025 MR/PAT.ANE Normal [facility] Office Visit Reporton 2024 Office Visit Report Normal [facility] Cardiology Visit Reporton Cardiology Visit Report Normal [facility] Pulmonary Visit Reporton Pulmonary Visit Report Normal [facility] ---- TORI GRAY ([id number]) 1980 F Date Time Provider Department 08/27/25 IVETTE GRIMES During your visit today, we recorded the following information about you: Rukhsana Wood 08/27/2025 2:32 PM Signed Tori is calling Ivette Grimes MD today to request a prior authorization on her Ozempic, per pharmacy, [facility] Please call patient with approval/denial when received Patient has been identified by name and birthdate. Person calling: self Call patient at: on cell [phone] (cell) Was an appointment scheduled: No Closing statement: Prior Authorization Calls: Thank you for calling [facility], your call will be returned within the next 24 hours or next business day. Rukhsana Argueta [facility] Evon Philippe LPN 08/30/2025 12:43 PM Signed Unable to complete this electronically. Will have to via covermymeds. Evon Philippe LPN 08/30/2025 2:35 PM Signed Unable to complete also on covermymeds. PA form completed. Evon Philippe LPN 08/30/2025 2:38 PM Signed PA form signed and records faxed back. Evon Philippe LPN 09/06/2025 11:08 AM Signed Rec'd call from [employer]. PA form printed and completed for them. Evon Philippe LPN 09/06/2025 2:53 PM Signed [facility] signed. All has been faxed. Allergies As [...] tablet by mouth once daily. - Ipratropium Wynne (ATROVENT) 21 mcg (0.03 %) nasal spray [...] DM - Controlled E11.9 Insulin: No - Nmkjgsje-Dx-Tay-Fe- FA tab Take 1 tablet by mouth [...] 05/06/2009 01/23/2010 Routine general medical examination at [facility]*01/23/2010 12/06/2012 Class: Chronic Routine gynecological examination [Z01.419] 01/23/2010 02/22/2014 Class: Chronic Morbid obesity (HCC) [E66.01] 01/23/2010 06/07/2025 Lumbar Disc Disorder [M51.9] 02/16/2010 Routine general medical examination at [facility]*12/06/2012 02/22/2014 Anxiety [F41 (more content not included)... Normal [facility] MR/BMS.Maite 08-27-2025 MR/BMS.LISA [facility] 08-13-2025 [facility] TORI GRAY ([id number]) 1980 F Date Time Provider Department 08/13/25 [facility] During your visit today, we recorded the following information about you: Nirmala Storey LPN 08/13/2025 8:55 AM Signed Urine culture scanned in today. Scan on 08/13/2025 7:34 AM by Provider, External, PA-C: Microbiology Ivette Grimes MD 08/13/2025 9:58 AM Signed Culture is positive for uti. The macrobid she was given should cover it. Nirmala Storey LPN 08/13/2025 10:53 AM Signed [employer] message sent to patient. Allergies As of [...] tablet by mouth once daily. - Ipratropium Wynne (ATROVENT) 21 mcg (0.03 %) nasal spray [...] DM - Controlled E11.9 Insulin: No - Ebvpmxzn-Bs-Gzp-Fe- FA tab Take 1 tablet by mouth [...] general medical examination at [facility]*01/23/2010 12/06/2012 Class: Chronic Routine gynecological examination [Z01.419] 01/23/2010 02/22/2014 Class: Chronic Morbid obesity (HCC) [E66.01] 01/23/2010 06/07/2025 Lumbar Disc Disorder [M51.9] 02/16/2010 Routine general medical examination at [facility]*12/06/2012 02/22/2014 Anxiety [F41.9] 06/07/2014 Type 2 [...] lumbar interverteb (more content not included)... Normal [facility] Urine Cultureon 08-13-2025 URC Normal [facility] Comment on above: Performed By: #### L 400.0001, L100.0100, L501.9985, M100.2200 ####[facility] [address] [place], [place], [id number] CBC W/Diff, Automatedon 10-0 Absolute Lymph 3.56 X10 3/uL Normal 0.83-4.51 [facility] Comment on above: Performed By: #### L 400.0001, L100.0100, L501.9985, M100.2200 ####[facility] [address] [place], [address] Absolute Neut 5.6 X10 3/uL Normal 2.0-7.7 [facility] Comment on above: Performed By: #### L 400.0001, L100.0100, L501.9985, M100.2200 ####[facility] [address] [place], [address] Basophils/100 WBC (Bld) 0.8 % Normal 0-1 [facility] Comment on above: Performed By: #### L 400.0001, L100.0100, L501.9985, M100.2200 ####[facility] [address] [place], [address] Eosinophils/100 WBC (Bld) 1.7 % Normal 0-5 [facility] Comment on above: Performed By: #### L 400.0001, L100.0100, L501.9985, M100.2200 ####[facility] [address] [place], [address] Erythrocyte distribution width (RBC) [Ratio] 13.7 % Normal 11.6-14.6 [facility] Comment on above: Performed By: #### L 400.0001, L100.0100, L501.9985, M100.2200 ####[facility] [address] [place], [address] Hematocrit (Bld) [Volume fraction] 39.7 % Normal 37-47 [facility] Comment on above: Performed By: #### L 400.0001, L100.0100, L501.9985, M100.2200 ####[facility] [address] [place], [address] Hemoglobin (Bld) [Mass/Vol] 13.3 g/dL Normal 12.0-15.0 [facility] Comment on above: Performed By: #### L 400.0001, L100.0100, L501.9985, M100.2200 ####[facility] [address] [place], [address] IG% 1.300 High 0.0-0.9 [facility] Comment on above: Result Comment: IG% - Immature Granulocytes (promyelocytes, myelocytes andmetamyelocytes) > 1% indicates that a LEFT SHIFT is Present. Performed By: #### L 400.0001, L100.0100, L501.9985, M100.2200 ####[facility] [address] [place], [address] Lymphocytes/100 WBC (Bld) 35.6 % Normal 19-41 [facility] Comment on above: Performed By: #### L 400.0001, L100.0100, L501.9985, M100.2200 ####[facility] [address] [place], [address] MCH (RBC) [Entitic mass] 30.7 pg Normal 27.0-32.0 [facility] Comment on above: Performed By: #### L 400.0001, L100.0100, L501.9985, M100.2200 ####[facility] [address] [place], [address] MCHC (RBC) [Mass/Vol] 33.5 g/dL Normal 32-36 [facility] Comment on above: Performed By: #### L 400.0001, L100.0100, L501.9985, M100.2200 ####[facility] [address] [place], [address] MCV (RBC) [Entitic vol] 91.7 fL Normal 81-99 [facility] Comment on above: Performed By: #### L 400.0001, L100.0100, L501.9985, M100.2200 ####[facility] [address] [place], [address] Monocytes/100 WBC (Bld) 4.8 % Normal 0-10 [facility] Comment on above: Performed By: #### L 400.0001, L100.0100, L501.9985, M100.2200 ####[facility] [address] [place], [address] Neutrophils/100 WBC (Bld) 55.8 % Normal 47-70 [facility] Comment on above: Performed By: #### L 400.0001, L100.0100, L501.9985, M100.2200 ####[facility] [address] [place], [address] Nucleated RBC (Bld) [#/Vol] 0 10*3/uL Normal 0-5 [facility] Comment on above: Performed By: #### L 400.0001, L100.0100, L501.9985, M100.2200 ####[facility] [address] [place], [address] Platelet mean volume (Bld) [Entitic vol] 9.3 fL Normal 6.2-12.0 [facility] Comment on above: Performed By: #### L 400.0001, L100.0100, L501.9985, M100.2200 ####[facility] [address] [place], [address] Platelets (Bld) [#/Vol] 219 10*3/uL Normal 150-450 [facility] Comment on above: Performed By: #### L 400.0001, L100.0100, L501.9985, M100.2200 ####[facility] [address] [place], [address] RBC (Bld) [#/Vol] 4.33 10*6/uL Normal 4.2-5.4 [facility] Comment on above: Performed By: #### L 400.0001, L100.0100, L501.9985, M100.2200 ####[facility] [address] [place], [address] RDW SD 46.5 fl High 35.1-43.9 [facility] Comment on above: Performed By: #### L 400.0001, L100.0100, L501.9985, M100.2200 ####[facility] [address] [place], [address] WBC (Bld) [#/Vol] 10.0 10*3/uL Normal 4.4-11.0 [facility] Comment on above: Performed By: #### L 400.0001, L100.0100, L501.9985, M100.2200 ####[facility] [address] [place], [address] [facility] ---- TORI GRAY ([id number]) 1980 F Date Time Provider Department 08/11/25 [facility] During your visit today, we recorded the [...] results of labs and urine completed at [facility] and she feels that she is [...] Signed Did she have ct done at [facility]. If so, can we get it. Annel Bundy RN 08/11/2025 1:[address] was completed at [facility] at last hospital visit. I am [...] [N13.30] Order(s):CONSULT TO UROLOGY [9041] Order #: [id number]: 1 FUTURE nitrofurantoin monohydrate and macrocrystal (MACROBID) [...] tablet by mouth once daily. - Ipratropium Wynne (ATROVENT) 21 mcg (0.03 %) nasal spray [...] DM - Controlled E11.9 Insulin: No - Xbnracdx-Qq-Sbt-Fe- FA tab Take 1 tablet by mouth once daily. Meds Comments as of 03/01/2019: Percocet March 01, 2019 Stephanie Suresh RN Problem List As Of Date 08/11/2025 (more content not included)... Normal [facility] Hemoglobin A1con 08-11-2025 HbA1c (Bld) [Mass fraction] 6.8 % High <=5.6 [facility] Comment on above: Result Comment: Norm al < 5.7 % Prediabetic 5.7 - 6.4 % Diabetic >or= 6.5 % Please note range changes. Performed By: #### L 400.0001, L100.0100, L501.9985, M100.2200 ####[facility] [address] [place], [address] Urinalysis, Completeon 08-11 RBC 0-5 SEEN Normal 0-5 [facility] Comment on above: Order Comment: Urine , Random Performed By: #### L 400.0001, L100.0100, L501.9985, M100.2200 ####[facility] [address] [place], [address] BACTERIA 2+ /hpf Normal None Seen [facility] Comment on above: Order Comment: Urine , Random Performed By: #### L 400.0001, L100.0100, L501.9985, M100.2200 ####[facility] [address] [place], [address] EPI,SQUAMOUS 10-25 SEEN Normal 5-10 [facility] Comment on above: Order Comment: Urine , Random Performed By: #### L 400.0001, L100.0100, L501.9985, M100.2200 ####[facility] [address] [place], [address] WBC 10-25 SEEN Normal 0-5 [facility] Comment on above: Order Comment: Urine , Random Performed By: #### L 400.0001, L100.0100, L501.9985, M100.2200 ####[facility] [address] [place], [address] Mucus Ql (Urine sed) 0 SEEN Normal [facility] Comment on above: Order Comment: Urine , Random Performed By: #### L 400.0001, L100.0100, L501.9985, M100.2200 ####[facility] [address] [place], [address] CNPNon 08-09-2025 [facility] Telephone ([facility]) ---- TORI GRAY ([id number]) 1980 F Date Time Provider Department 08/09/25 IVETTE GRIMES [facility] During your visit today, we recorded the following information about you: Priscila France RN 08/09/2025 8:27 AM Signed Pt called in requesting to have her labs faxed over [facility]. Faxed to the lab at # [phone]. Priscila France RN Allergies As of Date: [...] tablet by mouth once daily. - Ipratropium Wynne (ATROVENT) 21 mcg (0.03 %) nasal spray [...] DM - Controlled E11.9 Insulin: No - Wetsgira-Pc-Ify-Fe- FA tab Take 1 tablet by mouth [...] 05/06/2009 01/23/2010 Routine general medical examination at [facility]*01/23/2010 12/06/2012 Class: Chronic Routine gynecological examination [Z01.419] 01/23/2010 02/22/2014 Class: Chronic Morbid obesity (HCC) [E66.01] 01/23/2010 06/07/2025 Lumbar Disc Disorder [M51.9] 02/16/2010 Routine general medical examination at [facility]*12/06/2012 02/22/2014 Anxiety [F41.9] 06/07/2014 Type 2 [...] 09/04/2022 09/04/2022 (more content not included)... Normal [facility] Orthopedic Visit Reporton Orthopedic Visit Report Normal [facility] CNOVon 08-04-2025 CNOV Office Visit ([facility]) ---- TORI [id number]) 1980 F Date Time Provider Department 08/04/25 [...] for migraine Informed Consent Consent Obtained: Written [place] Protocol A moment to CARE was completed [...] collected. 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 Normal [facility] ---- TORI GRAY ([id number]) 1980 F Date Time Provider Department 07/29/25 [facility] GRIMES [facility] During your visit today, we recorded the following information about you: Little Murphy MA 07/29/2025 5:36 PM Signed Ivette Grimes MD P [facility] Send over order for ua and C and S to be done now and blood work to be done in 8 weeks to [facility]. Thanks. Little Rodriguez MA 07/29/2025 5:36 PM Signed Orders faxed to [facility] Allergies As of Date: 07/29/2025 Noted [...] tablet by mouth once daily. - Ipratropium Wynne (ATROVENT) 21 mcg (0.03 %) nasal spray [...] DM - Controlled E11.9 Insulin: No - Csjrntxi-Hs-Ogb-Fe- FA tab Take 1 tablet by mouth [...] general medical examination at [facility]*01/23/2010 12/06/2012 Class: Chronic Routine gynecological examination [Z01.419] 01/23/2010 02/22/2014 Class: Chronic Morbid obesity (HCC) [E66.01] 01/23/2010 06/07/2025 Lumbar Disc Disorder [M51.9] 02/16/2010 Routine [facility] medical examination at [facility]*12/06/2012 02/22/2014 Anxiety [F41.9] 06/07/2014 Type 2 diabetes [...] 09/04/2022 09/04/2022 (more content not included)... Normal [facility] Absolute lymphocyte countOrd ered By: Ivette Grimes on 07-23-2025 Lymphocytes Auto (Unsp spec) [#/Vol] 2.44 10*3/uL 0.83-4.51 [facility] Anion gap in Serum or Plasma Ordered By: Ivette Grimes on 07-23-2025 Anion gap [Moles/Vol] 14 mmol/L 5- [facility] Automated lymphocyte count a s percentage of total leukocytesOrdered By: Ivette Grimes on 07-23-2025 Lymphocytes/100 WBC Auto (Unsp spec) 29.6 % - [facility] BUN/creatinine ratioOrdered By: Ivette Grimes on 07-23-2025 Urea nitrogen/Creatinine [Mass ratio] 14.1 mg/mg 10- [facility] Basic Metabolic Profile (BMP )on 07-23-2025 BUN/CRE 14.1 RATIO Normal - [facility] Comment on above: Performed By: #### L 503.6030, L100.0100, L503.6550, L500.2500, L503.0106, L506.0200 ####[facility] [address] [place], [address] Calcium [Mass/Vol] 8.9 mg/dL Normal 7.6-11.0 [facility] Comment on above: Performed By: #### L 503.6030, L100.0100, L503.6550, L500.2500, L503.0106, L506.0200 ####[facility] [address] [place], [address] Chloride [Moles/Vol] 104 mmol/L Normal 98-108 [facility] Comment on above: Performed By: #### L 503.6030, L100.0100, L503.6550, L500.2500, L503.0106, L506.0200 ####[facility] [address] [place], [address] CO2 [Moles/Vol] 18.9 mmol/L Low 21.0-32.0 [facility] Comment on above: Performed By: #### L 503.6030, L100.0100, L503.6550, L500.2500, L503.0106, L506.0200 ####[facility] [address] [place], [address] Creatinine [Mass/Vol] 0.89 mg/dL Normal 0.70-1.20 [facility] Comment on above: Performed By: #### L 503.6030, L100.0100, L503.6550, L500.2500, L503.0106, L506.0200 ####[facility] [address] [place], [address] GAP 14 Normal 5-15 [facility] Comment on above: Performed By: #### L 503.6030, L100.0100, L503.6550, L500.2500, L503.0106, L506.0200 ####[facility] [address] [place], [address] GFR/1.73 sq M.predicted among non-blacks MDRD (S/P/Bld) [Vol rate/Area] 82 mL/min/{1.73_m2} Normal >60 [facility] Comment on above: Result Comment: mL/m in/1.73m2 CKD-EPI Creatinine Equation (2020) Performed By: #### L 503.6030, L100.0100, L503.6550, L500.2500, L503.0106, L506.0200 ####[facility] [address] [place], [address] Glucose [Mass/Vol] 145 mg/dL High 70-99 [facility] Comment on above: Performed By: #### L 503.6030, L100.0100, L503.6550, L500.2500, L503.0106, L506.0200 ####[facility] [address] [place], [address] Potassium [Moles/Vol] 3.9 mmol/L Normal 3.3-5.1 [facility] Comment on above: Performed By: #### L 503.6030, L100.0100, L503.6550, L500.2500, L503.0106, L506.0200 ####[facility] [address] [place], [address] Sodium [Moles/Vol] 137 mmol/L Normal 133-145 [facility] Comment on above: Performed By: #### L 503.6030, L100.0100, L503.6550, L500.2500, L503.0106, L506.0200 ####[facility] [address] [place], [address] Urea nitrogen [Mass/Vol] 13 mg/dL Normal 4-19 [facility] Comment on above: Performed By: #### L 503.6030, L100.0100, L503.6550, L500.2500, L503.0106, L506.0200 ####[facility] [address] [place], [address] Basophil percentageOrdered B y: Ivette Grimes on 07-23-2024 Basophils/100 WBC (Bld) 0.8 % 0-1 [facility] CBC W/Diff, Automatedon 07-05 Absolute Lymph 2.44 X10 3/uL Normal 0.83-4.51 [facility] Comment on above: Performed By: #### L 503.6030, L100.0100, L503.6550, L500.2500, L503.0106, L506.0200 ####[facility] [address] [place], [address] Absolute Neut 5.1 X10 3/uL Normal 2.0-7.7 [facility] Comment on above: Performed By: #### L 503.6030, L100.0100, L503.6550, L500.2500, L503.0106, L506.0200 ####[facility] [address] [place], [address] Basophils/100 WBC (Bld) 0.8 % Normal 0-1 [facility] Comment on above: Performed By: #### L 503.6030, L100.0100, L503.6550, L500.2500, L503.0106, L506.0200 ####[facility] [address] [place], [address] Eosinophils/100 WBC (Bld) 1.5 % Normal 0-5 [facility] Comment on above: Performed By: #### L 503.6030, L100.0100, L503.6550, L500.2500, L503.0106, L506.0200 ####[facility] [address] [place], [address] Erythrocyte distribution width (RBC) [Ratio] 13.2 % Normal 11.6-14.6 [facility] Comment on above: Performed By: #### L 503.6030, L100.0100, L503.6550, L500.2500, L503.0106, L506.0200 ####[facility] [address] [place], [address] Hematocrit (Bld) [Volume fraction] 38.1 % Normal 37-47 [facility] Comment on above: Performed By: #### L 503.6030, L100.0100, L503.6550, L500.2500, L503.0106, L506.0200 ####[facility] [address] [place], [address] Hemoglobin (Bld) [Mass/Vol] 12.7 g/dL Normal 12.0-15.0 [facility] Comment on above: Performed By: #### L 503.6030, L100.0100, L503.6550, L500.2500, L503.0106, L506.0200 ####[facility] [address] [place], [address] IG% 1.100 High 0.0-0.9 [facility] Comment on above: Result Comment: IG% - Immature Granulocytes (promyelocytes, myelocytes andmetamyelocytes) > 1% indicates that a LEFT SHIFT is Present. Performed By: #### L 503.6030, L100.0100, L503.6550, L500.2500, L503.0106, L506.0200 ####[facility] [address] [place], [address] Lymphocytes/100 WBC (Bld) 29.6 % Normal 19-41 [facility] Comment on above: Performed By: #### L 503.6030, L100.0100, L503.6550, L500.2500, L503.0106, L506.0200 ####[facility] [address] [place], [address] MCH (RBC) [Entitic mass] 31.5 pg Normal 27.0-32.0 [facility] Comment on above: Performed By: #### L 503.6030, L100.0100, L503.6550, L500.2500, L503.0106, L506.0200 ####[facility] [address] [place], [address] MCHC (RBC) [Mass/Vol] 33.3 g/dL Normal 32-36 [facility] Comment on above: Performed By: #### L 503.6030, L100.0100, L503.6550, L500.2500, L503.0106, L506.0200 ####[facility] [address] [place], [address] MCV (RBC) [Entitic vol] 94.5 fL Normal 81-99 [facility] Comment on above: Performed By: #### L 503.6030, L100.0100, L503.6550, L500.2500, L503.0106, L506.0200 ####[facility] [address] [place], [address] Monocytes/100 WBC (Bld) 5.0 % Normal 0-10 [facility] Comment on above: Performed By: #### L 503.6030, L100.0100, L503.6550, L500.2500, L503.0106, L506.0200 ####[facility] [address] [place], [address] Neutrophils/100 WBC (Bld) 62.0 % Normal 47-70 [facility] Comment on above: Performed By: #### L 503.6030, L100.0100, L503.6550, L500.2500, L503.0106, L506.0200 ####[facility] [address] [place], [address] Nucleated RBC (Bld) [#/Vol] 0 10*3/uL Normal 0-5 [facility] Comment on above: Performed By: #### L 503.6030, L100.0100, L503.6550, L500.2500, L503.0106, L506.0200 ####[facility] [address] [place], [address] Platelet mean volume (Bld) [Entitic vol] 9.3 fL Normal 6.2-12.0 [facility] Comment on above: Performed By: #### L 503.6030, L100.0100, L503.6550, L500.2500, L503.0106, L506.0200 ####[facility] [address] [place], [address] Platelets (Bld) [#/Vol] 240 10*3/uL Normal 150-450 [facility] Comment on above: Performed By: #### L 503.6030, L100.0100, L503.6550, L500.2500, L503.0106, L506.0200 ####[facility] [address] [place], [address] RBC (Bld) [#/Vol] 4.03 10*6/uL Low 4.2-5.4 [facility] Comment on above: Performed By: #### L 503.6030, L100.0100, L503.6550, L500.2500, L503.0106, L506.0200 ####[facility] [address] [place], [address] RDW SD 45.7 fl High 35.1-43.9 [facility] Comment on above: Performed By: #### L 503.6030, L100.0100, L503.6550, L500.2500, L503.0106, L506.0200 ####[facility] [address] [place], [address] WBC (Bld) [#/Vol] 8.3 10*3/uL Normal 4.4-11.0 [facility] Comment on above: Performed By: #### L 503.6030, L100.0100, L503.6550, L500.2500, L503.0106, L506.0200 ####[facility] [address] [place], [place], [id number] Carbon dioxide, total [Moles /volume] in Central venous bloodOrdered By: Ivette Grimes on 07-23-2025 CO2 [Moles/Vol] 18.9 mmol/L Low 21.0-32.0 [facility] Chloride assayOrdered By: Regina Grimes on 07-23-2025 Chloride [Moles/Vol] 104 mmol/L 98-108 [facility] Eosinophil percentageOrdered By: Ivette Grimes on 07-23-2025 Eosinophils/100 WBC (Bld) 1.5 % 0-5 [facility] Erythrocyte distribution wid th ratioOrdered By: Ivette Grimes on 07-23-2025 Erythrocyte distribution width (RBC) [Ratio] 13.2 % 11.6-14.6 [facility] Erythrocyte distribution wid th standard deviationOrdered By: Ivette Grimes on 07-23-2025 Erythrocyte distribution width (RBC) [Ratio] 45.7 fl High 35.1-43.9 [facility] Ferritinon 07-23-2025 Ferritin [Mass/Vol] 291 ng/mL Normal 22-378 [facility] Comment on above: Performed By: #### L 503.6030, L100.0100, L503.6550, L500.2500, L503.0106, L506.0200 ####[facility] [address] [place], [address] Folate [Mass/volume] in Seru m or PlasmaOrdered By: Ivette Grimes on 07-23-2025 Folate [Mass/Vol] 12.60 ng/mL 4.60-34.80 [facility] Folates,Serum (Folic Acid)on 07-23-2025 FOLATES,SERUM 12.60 ng/mL Normal 4.60-34.80 [facility] Comment on above: Order Comment: N Performed By: #### L 503.6030, L100.0100, L503.6550, L500.2500, L503.0106, L506.0200 ####[facility] [address] [place], [address] Glomerular filtration rate ( GFR) estimation/1.73 sq m using serum, plasma, or whole bOrdered By: Ivette Grimes on 07-23-2025 GFR/1.73 sq M.predicted among non-blacks MDRD (S/P/Bld) [Vol rate/Area] 82 mL/min/{1.73_m2} >60 [facility] Hematocrit Auto (Bld) [Volum e fraction]Ordered By: Ivette Grimes on 07-23-2025 Hematocrit (Bld) [Volume fraction] 38.1 % 37-47 [facility] Hemoglobin measurementOrdere d By: Ivette Grimes on 07-23-2025 Hemoglobin (Bld) [Mass/Vol] 12.7 g/dL 12.0-15.0 [facility] Immature granulocytes/100 WB C Auto (Bld)Ordered By: Ivette Grimes on 07-23-2025 Immature granulocytes/100 WBC (Bld) 1.100 % High 0.0-0.9 [facility] Iron measurement (mass/mass) Ordered By: Ivette Grimes on 07-23-2025 Iron (Unsp spec) [Mass/Mass] 70 ug/dL 50-170 [facility] Iron+Iron Binding Capacityon 07-23-2025 Iron [Mass/Vol] 70 ug/dL Normal 50-170 [facility] Comment on above: Performed By: #### L 503.6030, L100.0100, L503.6550, L500.2500, L503.0106, L506.0200 ####[facility] [address] [place], [address] IRON SATURATION 26.7 Normal 13-59 [facility] Comment on above: Performed By: #### L 503.6030, L100.0100, L503.6550, L500.2500, L503.0106, L506.0200 ####[facility] [address] [place], [address] TIBC 261 ug/dL Normal 250-450 [facility] Comment on above: Performed By: #### L 503.6030, L100.0100, L503.6550, L500.2500, L503.0106, L506.0200 ####[facility] [address] [place], [address] UIBC 191 ug/dL Low 228-428 [facility] Comment on above: Performed By: #### L 503.6030, L100.0100, L503.6550, L500.2500, L503.0106, L506.0200 ####[facility] [address] [place], [address] MCV (mean corpuscular volume ) determinationOrdered By: Ivette Grimes on 07-23-2025 MCV (RBC) [Entitic vol] 94.5 fL 81-99 [facility] Mean corpuscular hemoglobin (MCH) determinationOrdered By: Ivette Grimes on 07-23-2025 MCH (RBC) [Entitic mass] 31.5 pg 27.0-32.0 [facility] Monocyte percentageOrdered B y: Ivette Grimes on 07-23-2025 Monocytes/100 WBC (Bld) 5.0 % 0-10 [facility] Neutrophil percentageOrdered By: Ivette Grimes on 07-23-2025 Neutrophils/100 WBC (Bld) 62.0 % 47-70 [facility] No Panel InformationOrdered By: Ivette Grimes on 07-23-2025 191 ug/dL Low 228-428 [facility] Platelet countOrdered By: Regina muna Sydney on 07-23-2025 Platelets (Bld) [#/Vol] 240 10*3/uL 150-450 [facility] Potassium measurement (mass/ volume)Ordered By: Ivette Grimes on 07-23-2025 Potassium (Unsp spec) [Mass/Vol] 3.9 mmol/L 3.3-5.1 [facility] RBC Auto (Bld) [#/Vol]Ordere d By: Ivette Grimes on 07-23-2025 RBC (Bld) [#/Vol] 4.03 10*6/uL Low 4.2-5.4 [facility] Serum creatinine measurement (mass/volume)Ordered By: Ivette Grimes on 07-23-2025 Creatinine [Mass/Vol] 0.89 mg/dL 0.70-1.20 [facility] Serum glucose measurement (m ass/volume)Ordered By: Ivette Grimes on 07-23-2025 Glucose [Mass/Vol] 145 mg/dL High 70-99 [facility] Serum or plasma calcium sharron urement (mass/volume)Ordered By: Ivette Grimes on 07-23-2025 Calcium [Mass/Vol] 8.9 mg/dL 7.6-11.0 [facility] Serum or plasma ferritin jacob surement (mass/volume)Ordered By: Ivette Grimes on 07-23-2025 Ferritin [Mass/Vol] 291 ng/mL 22-378 [facility] Serum or plasma iron saturat ion measurement (mass fraction)Ordered By: Ivette Grimes on 07-23-2025 Iron saturation [Mass fraction] 26.7 % 13-59 [facility] Serum or plasma urea nitroge n measurement (mass/volume)Ordered By: Ivette Grimes on 07-23-2025 Urea nitrogen [Mass/Vol] 13 mg/dL 4-19 [facility] Sodium levelOrdered By: Reji Grimes on 07-23-2025 Sodium [Moles/Vol] 137 mmol/L 133-145 [facility] Vitamin B12on 07-23-2025 Cobalamin (Vitamin B12) [Mass/Vol] 679 pg/mL Normal 180-914 [facility] Comment on above: Performed By: #### L 503.6030, L100.0100, L503.6550, L500.2500, L503.0106, L506.0200 ####[facility] [address] [place], [address] Vitamin B12 ser/plasOrdered By: Ivette Grimes on 07-23-2025 Cobalamin (Vitamin B12) [Mass/Vol] 679 pg/mL 180-914 [facility] White blood cell (WBC) count Ordered By: Ivette Grimes on 07-23-2025 WBC (Bld) [#/Vol] 8.3 10*3/uL 4.4-11.0 [facility] CNPNon 07-22-2025 [facility] Telephone ([facility]) ---- TORI GRAY ([id number]) 1980 F Date Time Provider Department 07/22/25 [facility] During your visit today, we recorded the following information about you: Priscila France RN 07/22/2025 3:53 PM Signed Pt called in and asked to have the labs the provider ordered today faxed over to [facility]. Faxed labs to # [phone]. Priscila France RN Allergies As of Date: [...] tablet by mouth once daily. - Ipratropium Wynne (ATROVENT) 21 mcg (0.03 %) nasal spray [...] DM - Controlled E11.9 Insulin: No - Rrutsira-Cs-Xxf-Fe- FA tab Take 1 tablet by mouth [...] 05/06/2009 01/23/2010 Routine general medical examination at [facility]*01/23/2010 12/06/2012 Class: Chronic Routine gynecological examination [Z01.419] 01/23/2010 02/22/2014 Class: Chronic Morbid obesity (HCC) [E66.01] 01/23/2010 06/07/2025 Lumbar Disc Disorder [M51.9] 02/16/2010 Routine general medical examination at [facility]*12/06/2012 02/22/2014 Anxiety [F41.9] 06/07/2014 Type 2 [...] R19.7] 11/22/2021 (more content not included)... Normal [facility] CNPN Telephone (FAMWS) ---- TORI GRAY ([id number]) 1980 F Date Time Provider Department 07/22/25 IVETTE GRIMES [facility] During your visit today, we recorded [...] BLOOD COUNT AND DIFFERENTIAL [SQCBCDIF] Order #: [id number] FUTURE IRON AND TIBC [SQIRON] Order #: [id number] FUTURE VITAMIN B12 [SQB12] Order #: [id number] FUTURE FOLATE, SERUM [SQSERFOL] Order #: [id number] FUTURE FERRITIN [SQFERR] Order #: [id number] FUTURE BASIC METABOLIC PANEL [SQBMP] Order #: [id number] FUTURE Prescriptions as of 07/22/2025 - lisinopril [...] tablet by mouth once daily. - Ipratropium Wynne (ATROVENT) 21 mcg (0.03 %) nasal spray [...] DM - Controlled E11.9 Insulin: No - Siypgbbi-Dz-Fvj-Fe- FA tab Take 1 tablet by mouth [...] 05/06/2009 01/23/2010 Routine general medical examination at [facility]*01/23/2010 12/06/2012 Class: Chronic Routine gynecological examination [Z01.419] 01/23/2010 02/22/2014 Class: Chronic Morbid obesity (HCC) [E66.01] 01/23/2010 06/07/2025 Lumbar Disc Disorder [M51.9] 02/16/2010 Routine general medical examination at [facility]*12/06/2012 02/22/2014 Anxiety [F41.9] 06/07/2014 Type 2 [...] [I10] 08/16 (more content not included)... Normal [facility] CBC W/Diff, Automatedon 07-05 PATH REV Reviewed Normal [facility] Comment on above: Result Comment: SEE REPORT IN PATIENT'S EMR AMENDED REPORT 07/21/25 2364 PATH REV previously reported as: March Performed By: #### L 100.0100, L500.2500 ####[facility] [address] [place], [place], [address] CNOVon 07-15-2025 CNOV Office Visit (FAMPWS) ---- TORI GRAY ([id number]) 1980 F Date Time Provider Department 07/15/25 9:20 AM LUBNA DE LA GARZA During your visit today, we recorded the following information about you: Temperature Pulse Blood pressure Weight 97.6 degrees 73/minute 128/76 122 kg Lubna De La Garza APRN.[employer] 07/15/2025 9:54 AM Signed This is a 45 year old female who presents today with: Patient presents with: Hospital F/U: [facility] DX Sepsis, UTI D/C 07/07 HISTORY OF PRESENT ILLNESS: Tori Gray is a 45 year old female. Patient presents with: Hospital F/U: [facility] DX Sepsis, UTI D/C 07/07 The [...] 1 tablet by mouth once daily. Ipratropium Wynne (ATROVENT) 21 mcg (0.03 %) nasal spray [...] Test blo (more content not included)... Normal [facility] TORI GRAY ([id number]) 1980 F Date Time Provider Department 07/15/25 LUBNA DE LA GARZA [facility] During your visit today, we recorded the following information about you: Lubna De La Garza APRN.[facility] 07/15/2025 9:30 AM Signed Patient was seen at [facility] on August 03, 2025 for sepsis, complicated urinary tract infection. Patient presented to the emergency room with some confusion and found to have hyperosmolar nonketotic state as well as sepsis secondary to urinary tract infection in addition to acute kidney injury. 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 Acute metabolic encephalopathy secondary to sepsis and [...] tablet by mouth once daily. - Ipratropium Wynne (ATROVENT) 21 mcg (0.03 %) nasal spray [...] DM - Controlled E11.9 Insulin: No - Qmiysouu-Yr-Mtn-Fe- FA tab Take 1 tablet by mouth [...] general medical examination at [facility]*01/23/2010 12/06/2012 Class: Chronic Routine gynecological examination [Z01.419] 01/23/2010 02/22/2014 Class: Chronic Morbid obesity (HCC) [E66.01] 01/23/2010 06/07/2025 Lumbar Disc Disorder [M51.9] 02/16/2010 Routine general medical examination at [facility]*12/06/2012 02/22/2014 Anxiety [F41.9] 08 (more content not included)... Normal [facility] Culture, Blood (WB)on 2024 CUB Blood cultures x2, from two different sites No growth in 5 days. Normal [facility] Comment on above: Performed By: #### M 200.1000 ####[facility] [address] [place], [place], [address] CUB Blood cultures x2, from two different sites No growth in 5 days. Normal [facility] Comment on above: Performed By: #### M 200.1000 ####[facility] [address] [place], [place], [address] Orthopedic Visit Reporton Orthopedic Visit Report Normal [facility] Absolute lymphocyte countOrd ered By: Jose Juan Reinoso on 07-07-2025 Lymphocytes Auto (Unsp spec) [#/Vol] 1.80 10*3/uL 0.83-4.51 [facility] Absolute neutrophil countOrd ered By: Jose Juan Reinoso on 07-07-2025 Neutrophils (Bld) [#/Vol] 3.9 10*3/uL 2.0-7.7 [facility] Anion gap in Serum or Plasma Ordered By: Jose Juan Reinoso on 07-07-2025 Anion gap [Moles/Vol] 12 mmol/L 03-18 [facility] BUN/creatinine ratioOrdered By: Jose Juan Reinoso on 07-07-2025 Urea nitrogen/Creatinine [Mass ratio] 16.6 mg/mg - [facility] Basic Metabolic Profile (BMP )on 07-07-2025 BUN/CRE 16.6 RATIO Normal 08-23 [facility] Comment on above: Performed By: #### L 100.0100, L500.2500 ####[facility] [address] [place], [address] Calcium [Mass/Vol] 8.8 mg/dL Normal 7.6-11.0 [facility] Comment on above: Performed By: #### L 100.0100, L500.2500 ####[facility] [address] [place], [address] Chloride [Moles/Vol] 105 mmol/L Normal 98-108 [facility] Comment on above: Performed By: #### L 100.0100, L500.2500 ####[facility] [address] [place], [address] CO2 [Moles/Vol] 18.4 mmol/L Low 21.0-32.0 [facility] Comment on above: Performed By: #### L 100.0100, L500.2500 ####[facility] [address] [place], [address] Creatinine [Mass/Vol] 1.14 mg/dL Normal 0.70-1.20 [facility] Comment on above: Performed By: #### L 100.0100, L500.2500 ####[facility] [address] [place], [address] ECRCL 88.48 ml/min Normal 50-250 [facility] Comment on above: Performed By: #### L 100.0100, L500.2500 ####[facility] [address] [place], [address] GAP 12 Normal 5-15 [facility] Comment on above: Performed By: #### L 100.0100, L500.2500 ####[facility] [address] [place], [address] GFR/1.73 sq M.predicted among non-blacks MDRD (S/P/Bld) [Vol rate/Area] 61 mL/min/{1.73_m2} Normal >60 [facility] Comment on above: Result Comment: mL/m in/1.73m2 CKD-EPI Creatinine Equation (2020) Performed By: #### L 100.0100, L500.2500 ####[facility] [address] [place], [address] Glucose [Mass/Vol] 223 mg/dL High 70-99 [facility] Comment on above: Performed By: #### L 100.0100, L500.2500 ####[facility] [address] [place], [address] Potassium [Moles/Vol] 3.5 mmol/L Normal 3.3-5.1 [facility] Comment on above: Performed By: #### L 100.0100, L500.2500 ####[facility] [address] [place], [address] Sodium [Moles/Vol] 136 mmol/L Normal 133-145 [facility] Comment on above: Performed By: #### L 100.0100, L500.2500 ####[facility] [address] [place], [address] Urea nitrogen [Mass/Vol] 19 mg/dL Normal 4-19 [facility] Comment on above: Performed By: #### L 100.0100, L500.2500 ####[facility] [address] [place], [address] Bedside Glucoseon 07-07-2025 FINGERSTICK GLU 202 mg/dL High 74-106 [facility] Comment on above: Result Comment: [place] OF PATIENT CARE PER NURSING PROTOCOL Performed By: #### L 501.080 ####[facility] [address] [place], [address] Blood band neutrophil count as percentage of total leukocytesOrdered By: Jose Juan Reinoso on 07-07-2025 Band form neutrophils/100 WBC (Bld) 3 % 0-5 [facility] Blood blasts/100 leukocytesO rdered By: Jose Juan Reinoso on 07-07-2025 Blasts/100 WBC (Bld) 1 % Critically high 0-0 [facility] Blood eosinophils/100 leukoc ytesOrdered By: Jose Juan Reinoso on 07-07-2025 Eosinophils/100 WBC (Bld) 2 % 0-5 [facility] Blood lymphocytes/100 leukoc ytesOrdered By: Jose Juan Reinoso on 07-07-2025 Lymphocytes/100 WBC (Bld) 29 % 19-41 [facility] Blood metamyelocytes/100 facundo kocytesOrdered By: Jose Juan Reinoso on 07-07-2025 Metamyelocytes/100 WBC (Bld) 1 % 0-1 [facility] Blood monocytes/100 leukocyt esOrdered By: Jose Juan Reinoso on 07-07-2025 Monocytes/100 WBC (Bld) 4 % 0-10 [facility] Blood segmented neutrophils/ 100 leukocytesOrdered By: Jose Juan Reinoso on 07-07-2025 Segmented neutrophils/100 WBC (Bld) 60 % 47-70 [facility] Carbon dioxide, total [Moles /volume] in Central venous bloodOrdered By: Jose Juan Reinoso on 07-07-2025 CO2 [Moles/Vol] 18.4 mmol/L Low 21.0-32.0 [facility] Chloride assayOrdered By: Rachelle Reinoso on 07-07-2025 Chloride [Moles/Vol] 105 mmol/L 98-108 [facility] Electrolyte Panelon 07-07-20 25 CL Normal 98-108 [facility] Comment on above: Result Comment: [place] julian via OM: Ordered Performed By: #### L 501.5294 ####[facility] [address] [place], [address] CO2 Normal 21.0-32.0 [facility] Comment on above: Result Comment: [place] julian via OM: Ordered Performed By: #### L 501.5294 ####[facility] [address] [place], [address] GAP Normal 5-15 [facility] Comment on above: Result Comment: Canc elled via OM: MD Ordered Performed By: #### L 501.5294 ####[facility] [address] [place], [address] Potassium Normal 3.3-5.1 [facility] Comment on above: Result Comment: Canc elled via OM: MD Ordered Performed By: #### L 501.5294 ####[facility] [address] [place], [address] Electrolyte Panel Normal 133-145 [facility] Comment on above: Result Comment: Canc elled via OM: MD Ordered Performed By: #### L 501.5294 ####[facility] [address] [place], [address] Erythrocyte distribution wid th ratioOrdered By: Jose Juan Reinoso on 07-07-2025 Erythrocyte distribution width (RBC) [Ratio] 14.1 % 11.6-14.6 [facility] Erythrocyte distribution wid th standard deviationOrdered By: Jose Juan Reinoso on 07-07-2025 Erythrocyte distribution width (RBC) [Ratio] 50.4 fl High 35.1-43.9 [facility] Erythrocyte morphology asses smentOrdered By: Jose Juan Reinoso on 07-07-2025 RBC morphology finding Nom (Bld) NORM C+C NORMAL NORM C&C [facility] Glomerular filtration rate ( GFR) estimation/1.73 sq m using serum, plasma, or whole bOrdered By: Jose Juan Reinoso on 07-07-2025 GFR/1.73 sq M.predicted among non-blacks MDRD (S/P/Bld) [Vol rate/Area] 61 mL/min/{1.73_m2} >60 [facility] Comment on above: mL/min/1.73m2 CKD-EP I Creatinine Equation (2020) Glucose measurement at bedsi deOrdered By: Brittany Harrison on 07-07-2025 Glucose [Mass/Vol] 202 mg/dL High 74-106 [facility] Comment on above: MANAGEMENT OF PATIEN T CARE PER NURSING PROTOCOL Hematocrit Auto (Bld) [Volum e fraction]Ordered By: Jose Juan Reinoso on 07-07-2025 Hematocrit (Bld) [Volume fraction] 27.7 % Low 37-47 [facility] Hemoglobin measurementOrdere d By: Jose Juan Reinoso on 07-07-2025 Hemoglobin (Bld) [Mass/Vol] 9.5 g/dL Low 12.0-15.0 [facility] MCV (mean corpuscular volume ) determinationOrdered By: Jose Juan Reinoso on 07-07-2025 MCV (RBC) [Entitic vol] 96.9 fL 81-99 [facility] Mean corpuscular hemoglobin (MCH) determinationOrdered By: Jose Juan Reinoso on 07-07-2025 MCH (RBC) [Entitic mass] 33.2 pg High 27.0-32.0 [facility] Mean corpuscular hemoglobin concentration (MCHC) determinationOrdered By: Jose Juan Reinoso on 07-07-2025 MCHC (RBC) [Mass/Vol] 34.3 g/dL 32-36 [facility] Mean platelet volume determi nationOrdered By: Jose Juan Reinoso on 07-07-2025 Platelet mean volume (Bld) [Entitic vol] 9.4 fL 6.2-12.0 [facility] Platelet countOrdered By: Rachelle Reinoso on 07-07-2025 Platelets (Bld) [#/Vol] 187 10*3/uL 150-450 [facility] Platelet estimateOrdered By: Jose Juan Reinoso on 07-07-2025 Platelets LM Ql (Bld) ADEQUATE ADEQ [facility] Potassium measurement (mass/ volume)Ordered By: Jose Juan Reinoso on 07-07-2025 Potassium (Unsp spec) [Mass/Vol] 3.5 mmol/L 3.3-5.1 [facility] RBC Auto (Bld) [#/Vol]Ordere d By: Jose Juan Reinoso on 07-07-2025 RBC (Bld) [#/Vol] 2.86 10*6/uL Low 4.2-5.4 [facility] Review by pathologistOrdered By: Jose Juan Reinoso on 07-07-2025 Pathologist review Christiano (Unsp spec) [Interp] March [facility] Pathologist review Christiano (Unsp spec) [Interp] Reviewed [facility] Serum creatinine measurement (mass/volume)Ordered By: Jose Juan Reinoso on 07-07-2025 Creatinine [Mass/Vol] 1.14 mg/dL 0.70-1.20 [facility] Serum glucose measurement (m ass/volume)Ordered By: Jose Juan Reinoso on 07-07-2025 Glucose [Mass/Vol] 223 mg/dL High 70-99 [facility] Serum or plasma calcium sharron urement (mass/volume)Ordered By: Jose Juan Reinoso on 07-07-2025 Calcium [Mass/Vol] 8.8 mg/dL 7.6-11.0 [facility] Serum or plasma urea nitroge n measurement (mass/volume)Ordered By: Jose Juan Reinoso on 07-07-2025 Urea nitrogen [Mass/Vol] 19 mg/dL 4-19 [facility] Sodium levelOrdered By: Artemio Reinoso on 07-07-2025 Sodium [Moles/Vol] 136 mmol/L 133-145 [facility] Total cell countOrdered By: Jose Juan Reinoso on 07-07-2025 Cells counted Molgen (Bld/Tiss) [#] 100 MANUAL DIFF [facility] Urine Cultureon 07-07-2025 U[facility] Normal [facility] [facility] Comment on above: Performed By: #### M 100.2200 ####[facility] [address] [place], [address] White blood cell (WBC) count Ordered By: Jose Juan Reinoso on 07-07-2025 WBC (Bld) [#/Vol] 6.2 10*3/uL 4.4-11.0 [facility] Automated lymphocyte count a s percentage of total leukocytesOrdered By: Shana Mendoza on 07-06-2025 Lymphocytes/100 WBC Auto (Unsp spec) 16.7 % Low 19-41 [facility] Basophil percentageOrdered B y: Shana White on 07-06-2025 Basophils/100 WBC (Bld) 0.3 % 0-1 [facility] Bedside Glucoseon 07-06-2025 FINGERSTICK GLU 165 mg/dL High 74-106 [facility] Comment on above: Result Comment: SANTA GEMENT OF PATIENT CARE PER NURSING PROTOCOL Performed By: #### L 501.080 ####[facility] [address] [facility] [address] FINGERSTICK GLU 181 mg/dL [facility]106 [facility] Comment on above: Result Comment: SANTA GEMENT OF PATIENT CARE PER NURSING PROTOCOL Performed By: #### L 501.080 ####[facility] [address] [facility] [address] FINGERSTICK GLU 138 mg/dL High 74-106 [facility] Comment on above: Result Comment: SANTA GEMENT OF PATIENT CARE PER NURSING PROTOCOL Performed By: #### L 501.080 ####[facility] [address] [place], [address] FINGERSTICK GLU 144 mg/dL High [address] [facility] Comment on above: Result Comment: SANTA GEMENT OF PATIENT CARE PER NURSING PROTOCOL Performed By: #### L 501.080 ####[facility] [address] [facility] [address] FINGERSTICK GLU 176 mg/dL High 74-106 [facility] Comment on above: Result Comment: SANTA GEMENT OF PATIENT CARE PER NURSING PROTOCOL Performed By: #### L 501.080 ####[facility] [address] [facility] [address] FINGERSTICK GLU 168 mg/dL [facility]106 [facility] Comment on above: Result Comment: SANTA GEMENT OF PATIENT CARE PER NURSING PROTOCOL Performed By: #### L 501.080 ####[facility] [address] [place], [address] FINGERSTICK GLU 160 mg/dL High 74-106 [facility] Comment on above: Result Comment: SANTA GEMENT OF PATIENT CARE PER NURSING PROTOCOL Performed By: #### L 501.080 ####[facility] [address] [place], [address] FINGERSTICK GLU 187 mg/dL High 74-106 [facility] Comment on above: Result Comment: SANTA GEMENT OF PATIENT CARE PER NURSING PROTOCOL Performed By: #### L 501.080 ####[facility] [address] [place], [address] FINGERSTICK GLU 186 mg/dL High 74-106 [facility] Comment on above: Result Comment: SANTA GEMENT OF PATIENT CARE PER NURSING PROTOCOL Performed By: #### L 501.080 ####[facility] [address] [place], [address] FINGERSTICK GLU 156 mg/dL High 74-106 [facility] Comment on above: Result Comment: SANTA GEMENT OF PATIENT CARE PER NURSING PROTOCOL Performed By: #### L 501.080 ####[facility] [address] [place], [address] FINGERSTICK GLU 169 mg/dL High 74-106 [facility] Comment on above: Result Comment: SANTA GEMENT OF PATIENT CARE PER NURSING PROTOCOL Performed By: #### L 501.080 ####[facility] [address] [place], [address] FINGERSTICK GLU 164 mg/dL High 74-106 [facility] Comment on above: Result Comment: SANTA GEMENT OF PATIENT CARE PER NURSING PROTOCOL Performed By: #### L 501.080 ####[facility] [address] [place], [address] FINGERSTICK GLU 165 mg/dL High 74-106 [facility] Comment on above: Result Comment: SANTA GEMENT OF PATIENT CARE PER NURSING PROTOCOL Performed By: #### L 501.080 ####[facility] [address] [place], [address] FINGERSTICK GLU 211 mg/dL High 74-106 [facility] Comment on above: Result Comment: SANTA GEMENT OF PATIENT CARE PER NURSING PROTOCOL Performed By: #### L 501.080 ####[facility] [address] [place], [address] Bilirubin, totalOrdered By: Shana Mendoza on 07-06-2025 Bilirubin [Mass/Vol] 0.41 mg/dL 0.00-1.30 [facility] CBC W/Diff, Automatedon Absolute Lymph 1.07 X10 3/uL Normal 0.83-4.51 [facility] Comment on above: Performed By: #### L 100.0100, L501.9985 ####[facility] [address] [place], [address] Absolute Neut 4.7 X10 3/uL Normal 2.0-7.7 [facility] Comment on above: Performed By: #### L 100.0100, L501.9985 ####[facility] [address] [place], [address] Basophils/100 WBC (Bld) 0.3 % Normal 0-1 [facility] Comment on above: Performed By: #### L 100.0100, L501.9985 ####[facility] [address] [place], [address] Eosinophils/100 WBC (Bld) 1.4 % Normal 0-5 [facility] Comment on above: Performed By: #### L 100.0100, L501.9985 ####[facility] [address] [place], [address] Erythrocyte distribution width (RBC) [Ratio] 13.9 % Normal 11.6-14.6 [facility] Comment on above: Performed By: #### L 100.0100, L5.85 ####[facility] [address] [place], [address] Hematocrit (Bld) [Volume fraction] 25.4 % Low 37-47 [facility] Comment on above: Performed By: #### L 100.0100, L5.85 ####[facility] [address] [place], [address] Hemoglobin (Bld) [Mass/Vol] 8.7 g/dL Low 12.0-15.0 [facility] Comment on above: Performed By: #### L 100.0100, L5.85 ####[facility] [address] [place], [address] IG% 1.400 High 0.0-0.9 [facility] Comment on above: Result Comment: IG% - Immature Granulocytes (promyelocytes, myelocytes andmetamyelocytes) > 1% indicates that a LEFT SHIFT is Present. Performed By: #### L 100.0100, L5.85 ####[facility] [address] [place], [address] Lymphocytes/100 WBC (Bld) 16.7 % Low 19-41 [facility] Comment on above: Performed By: #### L 100.0100, L5.85 ####[facility] [address] [place], [address] MCH (RBC) [Entitic mass] 33.1 pg High 27.0-32.0 [facility] Comment on above: Performed By: #### L 100.0100, L5.9985 ####[facility] [address] [place], [address] MCHC (RBC) [Mass/Vol] 34.3 g/dL Normal 32-36 [facility] Comment on above: Performed By: #### L 100.0100, L501.9985 ####[facility] [address] [place], [address] MCV (RBC) [Entitic vol] 96.6 fL Normal 81-99 [facility] Comment on above: Performed By: #### L 100.0100, L501.9985 ####[facility] [address] [place], [address] Monocytes/100 WBC (Bld) 6.6 % Normal 0-10 [facility] Comment on above: Performed By: #### L 100.0100, L501.9985 ####[facility] [address] [place], [address] Neutrophils/100 WBC (Bld) 73.6 % High 47-70 [facility] Comment on above: Performed By: #### L 100.0100, L501.9985 ####[facility] [address] [place], [address] Nucleated RBC (Bld) [#/Vol] 0 10*3/uL Normal 0-5 [facility] Comment on above: Performed By: #### L 100.0100, L501.9985 ####[facility] [address] [place], [address] Platelet mean volume (Bld) [Entitic vol] 9.9 fL Normal 6.2-12.0 [facility] Comment on above: Performed By: #### L 100.0100, L501.9985 ####[facility] [address] [place], [address] Platelets (Bld) [#/Vol] 145 10*3/uL Low 150-450 [facility] Comment on above: Performed By: #### L 100.0100, L501.9985 ####[facility] [address] [place], [address] RBC (Bld) [#/Vol] 2.63 10*6/uL Low 4.2-5.4 [facility] Comment on above: Performed By: #### L 100.0100, L501.9985 ####[facility] [address] [place], [address] RDW SD 49.3 fl High 35.1-43.9 [facility] Comment on above: Performed By: #### L 100.0100, L501.9985 ####[facility] [address] [place], [address] WBC (Bld) [#/Vol] 6.4 10*3/uL Normal 4.4-11.0 [facility] Comment on above: Performed By: #### L 100.0100, L501.9985 ####[facility] [address] [place], [address] Comprehensive Metabolic Prof deon 07-06-2025 Albumin [Mass/Vol] 3.1 g/dL Low 3.5-5.0 [facility] Comment on above: Order Comment: Comme nts: May add to ED labs Performed By: #### L 501.2300, L500.4050 ####[facility] [address] [place], [address] Albumin/Globulin [Mass ratio] 1.0 {ratio} Normal 0.9-2.4 [facility] Comment on above: Order Comment: Comme nts: May add to ED labs Performed By: #### L 501.2300, L500.4050 ####[facility] [address] [place], [address] ALK PHOS 102 U/L Normal 35-104 [facility] Comment on above: Order Comment: Comme nts: May add to ED labs Performed By: #### L 501.2300, L500.4050 ####[facility] [address] [place], [address] ALT [Catalytic activity/Vol] 23 U/L Normal <=34 [facility] Comment on above: Order Comment: Comme nts: May add to ED labs Performed By: #### L 501.2300, L500.4050 ####[facility] [address] [place], [address] AST [Catalytic activity/Vol] 15 U/L Normal <=31 [facility] Comment on above: Order Comment: Comme nts: May add to ED labs Performed By: #### L 501.2300, L500.4050 ####[facility] [address] [place], [address] Bilirubin [Mass/Vol] 0.41 mg/dL Normal 0.00-1.30 [facility] Comment on above: Order Comment: Comme nts: May add to ED labs Performed By: #### L 501.2300, L500.4050 ####[facility] [address] [place], [address] BUN/CRE 19.4 RATIO Normal 10-20 [facility] Comment on above: Order Comment: Comme nts: May add to ED labs Performed By: #### L 501.2300, L500.4050 ####[facility] [address] [place], [address] Calcium [Mass/Vol] 8.1 mg/dL Normal 7.6-11.0 [facility] Comment on above: Order Comment: Comme nts: May add to ED labs Performed By: #### L 501.2300, L500.4050 ####[facility] [address] [place], [address] Chloride [Moles/Vol] 106 mmol/L Normal 98-108 [facility] Comment on above: Order Comment: Comme nts: May add to ED labs Performed By: #### L 501.2300, L500.4050 ####[facility] [address] [place], [address] CO2 [Moles/Vol] 17.0 mmol/L Low 21.0-32.0 [facility] Comment on above: Order Comment: Comme nts: May add to ED labs Performed By: #### L 501.2300, L500.4050 ####[facility] [address] [place], [address] Creatinine [Mass/Vol] 1.47 mg/dL High 0.70-1.20 [facility] Comment on above: Order Comment: Comme nts: May add to ED labs Performed By: #### L 501.2300, L500.4050 ####[facility] [address] [place], [address] ECRCL 69.18 ml/min Normal 50-250 [facility] Comment on above: Order Comment: Comme nts: May add to ED labs Performed By: #### L 501.2300, L500.4050 ####[facility] [address] [place], [address] GAP 11 Normal 5-15 [facility] Comment on above: Order Comment: Comme nts: May add to ED labs Performed By: #### L 501.2300, L500.4050 ####[facility] [address] [place], [address] GFR/1.73 sq M.predicted among non-blacks MDRD (S/P/Bld) [Vol rate/Area] 45 mL/min/{1.73_m2} Low >60 [facility] Comment on above: Order Comment: Comme nts: May add to ED labs Result Comment: mL/m in/1.73m2 CKD-EPI Creatinine Equation (2020) Performed By: #### L 501.2300, L500.4050 ####[facility] [address] [place], [address] Globulin (S) [Mass/Vol] 3.3 g/dL Normal 2.2-4.2 [facility] Comment on above: Order Comment: Comme nts: May add to ED labs Performed By: #### L 501.2300, L500.4050 ####[facility] [address] [place], [address] Glucose [Mass/Vol] 195 mg/dL High 70-99 [facility] Comment on above: Order Comment: Comme nts: May add to ED labs Performed By: #### L 501.2300, L500.4050 ####[facility] [address] [place], [address] Potassium [Moles/Vol] 3.4 mmol/L Normal 3.3-5.1 [facility] Comment on above: Order Comment: Comme nts: May add to ED labs Performed By: #### L 501.2300, L500.4050 ####[facility] [address] [place], [address] Performed By: #### L 501.5294 ####[facility] [address] [place], [address] Sodium [Moles/Vol] 134 mmol/L Normal 133-145 [facility] Comment on above: Order Comment: Comme nts: May add to ED labs Performed By: #### L 501.2300, L500.4050 ####[facility] [address] [place], [address] T PROT 6.4 g/dL Normal 5.9-8.4 [facility] Comment on above: Order Comment: Comme nts: May add to ED labs Performed By: #### L 501.2300, L500.4050 ####[facility] [address] [place], [address] Urea nitrogen [Mass/Vol] 29 mg/dL High 4-19 [facility] Comment on above: Order Comment: Comme nts: May add to ED labs Performed By: #### L 501.2300, L500.4050 ####[facility] [address] 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 Jose Juan Reinoso MD; Dr. Abhi Pina MD; Dr. Ivette Grimes MD ~ Signed [facility] Work Phone: Electrolyte Panelon 07-06-20 25 CL Normal 98-108 [facility] Comment on above: Result Comment: Canc eliel via OM: MD Ordered Performed By: #### L 501.5294 ####[facility] [address] [place], [address] CO2 Normal 21.0-32.0 [facility] Comment on above: Result Comment: Canc elled via OM: MD Ordered Performed By: #### L [id number] ####[facility] [address] [place], [address] GAP Normal 5-15 [facility] Comment on above: Result Comment: Canc elled via OM: MD Ordered Performed By: #### L 5294 ####[facility] [address] [place], [address] Potassium Normal 3.3-5.1 [facility] Comment on above: Result Comment: Canc elled via OM: MD Ordered Performed By: #### L 5294 ####[facility] [address] [place], [address] Electrolyte Panel Normal 133-145 [facility] Comment on above: Result Comment: Canc elled via OM: MD Ordered Performed By: #### L [id number] ####[facility] [address] [place], [address] CL Normal 98-108 [facility] Comment on above: Result Comment: Canc elled via OM: MD Ordered Performed By: #### L 501.5294 ####[facility] [address] [place], [address] CO2 Normal 21.0-32.0 [facility] Comment on above: Result Comment: Canc elled via OM: MD Ordered Performed By: #### L [id number] ####[facility] [address] [place], [address] GAP Normal 5-15 [facility] Comment on above: Result Comment: Canc elled via OM: MD Ordered Performed By: #### L 94 ####[facility] [address] [place], [address] Potassium Normal 3.3-5.1 [facility] Comment on above: Result Comment: Canc elled via OM: MD Ordered Performed By: #### L 5294 ####[facility] [address] [place], [address] Electrolyte Panel Normal 133-145 [facility] Comment on above: Result Comment: Canc elled via OM: MD Ordered Performed By: #### L 94 ####[facility] [address] [place], [address] CL Normal 98-108 [facility] Comment on above: Result Comment: Canc elled via OM: MD Ordered Performed By: #### L 94 ####[facility] [address] [place], [address] CO2 Normal 21.0-32.0 [facility] Comment on above: Result Comment: Canc elled via OM: MD Ordered Performed By: #### L 94 ####[facility] [address] [place], [address] GAP Normal 5-15 [facility] Comment on above: Result Comment: Canc elled via OM: MD Ordered Performed By: #### L 94 ####[facility] [address] [place], [address] Potassium Normal 3.3-5.1 [facility] Comment on above: Result Comment: Canc elled via OM: MD Ordered Performed By: #### L 5294 ####[facility] [address] [place], [address] Electrolyte Panel Normal 133-145 [facility] Comment on above: Result Comment: Canc elled via OM: MD Ordered Performed By: #### L 94 ####[facility] [address] [place], [address] CL Normal 98-108 [facility] Comment on above: Result Comment: Canc elled via OM: MD Ordered Performed By: #### L 501.5294 ####[facility] [address] [place], [address] CO2 Normal 21.0-32.0 [facility] Comment on above: Result Comment: Canc elled via OM: MD Ordered Performed By: #### L 501.5294 ####[facility] [address] [place], [address] GAP Normal 5-15 [facility] Comment on above: Result Comment: Canc elled via OM: MD Ordered Performed By: #### L 501.5294 ####[facility] [address] [place], [address] Potassium Normal 3.3-5.1 [facility] Comment on above: Result Comment: Canc elled via OM: MD Ordered Performed By: #### L [id number] ####[facility] [address] [place], [address] Electrolyte Panel Normal 133-145 [facility] Comment on above: Result Comment: Canc elled via OM: MD Ordered Performed By: #### L 501.5294 ####[facility] [address] [place], [address] CL Normal 98-108 [facility] Comment on above: Result Comment: DUPL ICATE-CMP ORDERED Performed By: #### L [id number] ####[facility] [address] [place], [address] CO2 Normal 21.0-32.0 [facility] Comment on above: Result Comment: DUPL ICATE-CMP ORDERED Performed By: #### L [id number] ####[facility] [address] [place], [address] GAP Normal 5-15 [facility] Comment on above: Result Comment: DUPL ICATE-CMP ORDERED Performed By: #### L 501.5294 ####[facility] [address] [place], [address] Potassium Normal 3.3-5.1 [facility] Comment on above: Result Comment: DUPL ICATE-CMP ORDERED Performed By: #### L 501.5294 ####[facility] [address] [place], [address] Electrolyte Panel Normal 133-145 [facility] Comment on above: Result Comment: DUPL ICATE-CMP ORDERED Performed By: #### L 501.5294 ####[facility] [address] [place], [address] CL Normal 98-108 [facility] Comment on above: Result Comment: [place] elled via OM: Ordered Performed By: #### L 501.5294 ####[facility] [address] [place], [address] CO2 Normal 21.0-32.0 [facility] Comment on above: Result Comment: [place] elled via OM: Ordered Performed By: #### L 501.5294 ####[facility] [address] [place], [address] GAP Normal 5-15 [facility] Comment on above: Result Comment: Geneva bearded via OM: Ordered Performed By: #### L 501.5294 ####[facility] [address] [place], [address] Potassium Normal 3.3-5.1 [facility] Comment on above: Result Comment: [place] elled via OM: Ordered Performed By: #### L 501.5294 ####[facility] [address] [place], [address] Electrolyte Panel Normal 133-145 [facility] Comment on above: Result Comment: Geneva julian via OM: Ordered Performed By: #### L 501.5294 ####[facility] [address] [place], [address] Chloride [Moles/Vol] 104 mmol/L Normal 98-108 [facility] Comment on above: Performed By: #### L 501.5294 ####[facility] [address] [place], [address] CO2 [Moles/Vol] 17.4 mmol/L Low 21.0-32.0 [facility] Comment on above: Performed By: #### L 501.5294 ####[facility] [address] [place], [address] GAP 12 Normal 5-15 [facility] Comment on above: Performed By: #### L 501.5294 ####[facility] [address] [place], [address] Sodium [Moles/Vol] 133 mmol/L Normal 133-145 [facility] Comment on above: Performed By: #### L 501.5294 ####[facility] [address] [place], [address] Eosinophil percentageOrdered By: Shana Mendoza on 07-06-2025 Eosinophils/100 WBC (Bld) 1.4 % 0-5 [facility] Hemoglobin A1con 07-06-2025 HbA1c (Bld) [Mass fraction] 7.6 % High <=5.6 [facility] Comment on above: Result Comment: Norm al < 5.7 % Prediabetic 5.7 - 6.4 % Diabetic >or= 6.5 % Please note range changes. Performed By: #### L 100.0100, L501.9985 ####[facility] [address] [place], [address] Hemoglobin A1c percentageOrd ered By: Shana Mendoza on 07-06-2025 HbA1c (Bld) [Mass fraction] 7.6 % High <5.7 [facility] Comment on above: Normal < 5.7 % Predi abetic 5.7 - 6.4 % Diabetic >or= 6.5 % Please note range changes. Immature granulocytes/100 WB C Auto (Bld)Ordered By: Shana Mendoza on 07-06-2025 Immature granulocytes/100 WBC (Bld) 1.400 % High 0.0-0.9 [facility] Comment on above: IG% - Immature Granu locytes (promyelocytes, myelocytes and metamyelocytes) > 1% indicates that a LEFT SHIFT is Present. Iron+Iron Binding Capacityon 07-06-2025 TIBC 166 ug/dL Low 250-450 [facility] Comment on above: Performed By: #### L 503.6030, L501.5294 ####[facility] [address] [place], [place], [id number] Laboratory - Chemistry and C hemistry - challengeOrdered By: Shana Mendoza on 07-06-2025 AST [Catalytic activity/Vol] 15 U/L <32 [facility] M8200.1000on 07-06-2025 M8200.1000 Negative Normal [facility] Comment on above: Performed By: #### M 8200.1000 ####[facility] [address] [place], [place], [address] Magnesiumon 07-06-2025 Magnesium [Mass/Vol] 1.9 mg/dL Normal 1.5-2.2 [facility] Comment on above: Order Comment: Comme nts: may add to ED labsTG1 1 F Performed By: #### L 501.5200 ####[facility] [address] [place], [place], [id number] Magnesium measurement (mass/ volume)Ordered By: Shana Mendoza on 07-06-2025 Magnesium (Unsp spec) [Mass/Vol] 1.9 mg/dL 1.5-2.2 [facility] Monocyte percentageOrdered B y: Shana Mendoza on 07-06-2025 Monocytes/100 WBC (Bld) 6.6 % 0-10 [facility] Nasal methicillin resistant Staphylococcus aureus (MRSA) DNA detection by PCROrdered By: Shana Reji on 07-06-2025 MRSA DNA ALLYSON+probe Ql (Nose) [facility] No Panel InformationOrdered By: Shana Reji on 07-06-2025 15 U/L <32 [facility] Nucleated red blood cell per centageOrdered By: Shana Reji on 07-06-2025 Nucleated RBC/100 WBC (Bld) [Ratio] 0 % 0-5 [facility] Phosphoruson 07-06-2025 Phosphate [Mass/Vol] 2.4 mg/dL Low 2.7-4.5 [facility] Comment on above: Order Comment: Comme nts: May add to ED labs Performed By: #### L 501.2300, L500.4050 ####[facility] [address] [place], [address] Serum globulin measurementOr dered By: Shana Mendoza on 07-06-2025 Globulin (S) [Mass/Vol] 3.3 g/dL 2.2-4.2 [facility] Serum or plasma alanine arizmendi otransferase (ALT) measurementOrdered By: Shana Reji on 07-06-2025 ALT [Catalytic activity/Vol] 23 U/L <35 [facility] Serum or plasma albumin sharron urement (mass/volume)Ordered By: Shana Reji on 07-06-2025 Albumin [Mass/Vol] 3.1 g/dL Low 3.5-5.0 [facility] Serum or plasma albumin/glob ulin mass ratioOrdered By: Shana 07-06-2025 Albumin/Globulin [Mass ratio] 1.0 {ratio} 0.9-2.4 [facility] Serum or plasma alkaline toyin sphatase measurementOrdered By: Shana Reji on 07-06-2025 ALP [Catalytic activity/Vol] 102 U/L 35-104 [facility] Stool Occult Blood iFOBon STOB Negative Normal [facility] Comment on above: Performed By: #### M 100.7900 ####[facility] [address] [place], [address] Stool gastrointestinal hemog lobin detection by immunologic methodOrdered By: Shana Reji on 07-06-2025 Lower GI hemoglobin IA Ql (Stl) [facility] Total proteinOrdered By: Aut umn White on 07-06-2025 Protein [Mass/Vol] 6.4 g/dL 5.9-8.4 [facility] 12 Lead EKGon 07-05-2025 12 Lead EKG Normal [facility] Abdomen/Pelvis without Conto n 07-05-2025 Abdomen/Pelvis without Cont Normal [facility] Absolute lymphocyte countOrd ered By: Abhi Pina on 07-05-2025 Lymphocytes Auto (Unsp spec) [#/Vol] 0.99 10*3/uL 0.83-4.51 [facility] Absolute neutrophil countOrd ered By: [facility] Neutrophils (Bld) [#/Vol] 5.3 10*3/uL 2.0-7.7 [facility] Anion gap in Serum or Plasma Ordered By: Abhi Pina on 07-05-2025 Anion gap [Moles/Vol] 13 mmol/L 5-15 [facility] Automated lymphocyte count a s percentage of total leukocytesOrdered By: [facility] on 07-05-2025 Lymphocytes/100 WBC Auto (Unsp spec) 14.4 % Low 19-41 [facility] BUN/creatinine ratioOrdered By: [facility] on 07-05-2025 Urea nitrogen/Creatinine [Mass ratio] 20.7 mg/mg High 10-20 [facility] Basophil percentageOrdered B y: Abhi Pina on 07-05-2025 Basophils/100 WBC (Bld) 0.4 % 0-1 [facility] Bedside Glucoseon 07-05-2025 FINGERSTICK GLU 265 mg/dL High 74-106 [facility] Comment on above: Result Comment: SANTA GEMENT OF PATIENT CARE PER NURSING PROTOCOL Performed By: #### L 501.080 ####[facility] [address] [place], [address] FINGERSTICK GLU 321 mg/dL High 74-106 [facility] Comment on above: Result Comment: SANTA GEMENT OF PATIENT CARE PER NURSING PROTOCOL Performed By: #### L 501.080 ####[facility] [address] [place], [address] FINGERSTICK GLU 369 mg/dL High 74-106 [facility] Comment on above: Result Comment: SANTA GEMENT OF PATIENT CARE PER NURSING PROTOCOL Performed By: #### L 501.080 ####[facility] [address] [place], [address] FINGERSTICK GLU 459 mg/dL Invalid Interpretation Code 74-106 [facility] Comment on above: Result Comment: SANTA GEMENT OF PATIENT CARE PER NURSING PROTOCOL Performed By: #### L 501.080 ####[facility] [address] [place], [address] Beta-Hydroxbytyrateon 2024 BETA-HYDROXYBUT 0.1 mmol/L Normal 0.0-0.3 [facility] Comment on above: Performed By: #### L 501.6901, L501.5200 ####[facility] [address] [place], [address] Beta-hydroxybutyrateOrdered By: Abhi Pina on 07-05-2025 Beta hydroxybutyrate [Mass/Vol] 0.1 mmol/L 0.0-0.3 [facility] Bilirubin Test strip Ql (U)O rdered By: Abhi Pina on 07-05-2025 Bilirubin Ql (U) Negative Negative [facility] Bilirubin, totalOrdered By: Abhi Pina on 07-05-2025 Bilirubin [Mass/Vol] 0.57 mg/dL 0.00-1.30 [facility] Blood cultureOrdered By: Abhi Pina on 07-05-2025 Bacteria identified Cx Nom (Bld) No growth in 5 days. [facility] Bacteria identified Cx Nom (Bld) No growth in 5 days. [facility] CBC W/Diff, Automatedon Absolute Lymph 0.99 X10 3/uL Normal 0.83-4.51 [facility] Comment on above: Performed By: #### L 503.6005, L100.0100, L500.4050 ####[facility] [address] [place], [address] Absolute Neut 5.3 X10 3/uL Normal 2.0-7.7 [facility] Comment on above: Performed By: #### L 503.6005, L100.0100, L500.4050 ####[facility] [address] [place], [address] Basophils/100 WBC (Bld) 0.4 % Normal 0-1 [facility] Comment on above: Performed By: #### L 503.6005, L100.0100, L500.4050 ####[facility] [address] [place], [address] Eosinophils/100 WBC (Bld) 0.9 % Normal 0-5 [facility] Comment on above: Performed By: #### L 503.6005, L100.0100, L500.4050 ####[facility] [address] [place], [address] Erythrocyte distribution width (RBC) [Ratio] 13.8 % Normal 11.6-14.6 [facility] Comment on above: Performed By: #### L 503.6005, L100.0100, L500.4050 ####[facility] [address] [place], [address] Hematocrit (Bld) [Volume fraction] 28.2 % Low 37-47 [facility] Comment on above: Performed By: #### L 503.6005, L100.0100, L500.4050 ####[facility] [address] [place], [address] Hemoglobin (Bld) [Mass/Vol] 9.5 g/dL Low 12.0-15.0 [facility] Comment on above: Performed By: #### L 503.6005, L100.0100, L500.4050 ####[facility] [address] [place], [address] IG% 0.900 Normal 0.0-0.9 [facility] Comment on above: Result Comment: IG% - Immature Granulocytes (promyelocytes, myelocytes andmetamyelocytes) > 1% indicates that a LEFT SHIFT is Present. Performed By: #### L 503.6005, L100.0100, L500.4050 ####[facility] [address] [place], [address] Lymphocytes/100 WBC (Bld) 14.4 % Low 19-41 [facility] Comment on above: Performed By: #### L 503.6005, L100.0100, L500.4050 ####[facility] [address] [place], [address] MCH (RBC) [Entitic mass] 32.3 pg High 27.0-32.0 [facility] Comment on above: Performed By: #### L 503.6005, L100.0100, L500.4050 ####[facility] [address] [place], [address] MCHC (RBC) [Mass/Vol] 33.7 g/dL Normal 32-36 [facility] Comment on above: Performed By: #### L 503.6005, L100.0100, L500.4050 ####[facility] [address] [place], [address] MCV (RBC) [Entitic vol] 95.9 fL Normal 81-99 [facility] Comment on above: Performed By: #### L 503.6005, L100.0100, L500.4050 ####[facility] [address] [place], [address] Monocytes/100 WBC (Bld) 5.8 % Normal 0-10 [facility] Comment on above: Performed By: #### L 503.6005, L100.0100, L500.4050 ####[facility] [address] [place], [address] Neutrophils/100 WBC (Bld) 77.6 % High 47-70 [facility] Comment on above: Performed By: #### L 503.6005, L100.0100, L500.4050 ####[facility] [address] [place], [address] Nucleated RBC (Bld) [#/Vol] 0 10*3/uL Normal 0-5 [facility] Comment on above: Performed By: #### L 503.6005, L100.0100, L500.4050 ####[facility] [address] [place], [address] Platelet mean volume (Bld) [Entitic vol] 10.4 fL Normal 6.2-12.0 [facility] Comment on above: Performed By: #### L 503.6005, L100.0100, L500.4050 ####[facility] [address] [place], [address] Platelets (Bld) [#/Vol] 136 10*3/uL Low 150-450 [facility] Comment on above: Performed By: #### L 503.6005, L100.0100, L500.4050 ####[facility] [address] [place], [address] RBC (Bld) [#/Vol] 2.94 10*6/uL Low 4.2-5.4 [facility] Comment on above: Performed By: #### L 503.6005, L100.0100, L500.4050 ####[facility] [address] [place], [address] RDW SD 48.8 fl High 35.1-43.9 [facility] Comment on above: Performed By: #### L 503.6005, L100.0100, L500.4050 ####[facility] [address] [place], [address] WBC (Bld) [#/Vol] 6.9 10*3/uL Normal 4.4-11.0 [facility] Comment on above: Performed By: #### L 503.6005, L100.0100, L500.4050 ####[facility] [address] [place], [address] CO2 (BldV) [Moles/Vol]Ordere d By: Abhi Pina on 07-05-2025 CO2 [Moles/Vol] 17 mmol/L Low 23-33 [facility] Carbon dioxide, total [Moles /volume] in Central venous bloodOrdered By: Abhiasha Pina on 07-05-2025 CO2 [Moles/Vol] 15.9 mmol/L Low 21.0-32.0 [facility] Chest PA and Lateralon 07-05 Chest PA and Lateral Normal [facility] Chloride assayOrdered By: Ug asha Pina on 07-05-2025 Chloride [Moles/Vol] 101 mmol/L 98-108 [facility] Comprehensive Metabolic Prof ilon 07-05-2025 Albumin [Mass/Vol] 3.3 g/dL Low 3.5-5.0 [facility] Comment on above: Performed By: #### L 503.6005, L100.0100, L500.4050 ####[facility] [address] [place], [address] Albumin/Globulin [Mass ratio] 0.9 {ratio} Normal 0.9-2.4 [facility] Comment on above: Performed By: #### L 503.6005, L100.0100, L500.4050 ####[facility] [address] [place], [address] ALK PHOS 183 U/L High 35-104 [facility] Comment on above: Performed By: #### L 503.6005, L100.0100, L500.4050 ####[facility] [address] [place], [address] ALT [Catalytic activity/Vol] 26 U/L Normal <=34 [facility] Comment on above: Performed By: #### L 503.6005, L100.0100, L500.4050 ####[facility] [address] [place], [address] AST [Catalytic activity/Vol] 19 U/L Normal <=31 [facility] Comment on above: Performed By: #### L 503.6005, L100.0100, L500.4050 ####[facility] [address] [place], [address] Bilirubin [Mass/Vol] 0.57 mg/dL Normal 0.00-1.30 [facility] Comment on above: Performed By: #### L 503.6005, L100.0100, L500.4050 ####[facility] [address] [place], [address] BUN/CRE 20.7 RATIO High 10-20 [facility] Comment on above: Performed By: #### L 503.6005, L100.0100, L500.4050 ####[facility] [address] [place], [address] Calcium [Mass/Vol] 8.3 mg/dL Normal 7.6-11.0 [facility] Comment on above: Performed By: #### L 503.6005, L100.0100, L500.4050 ####[facility] [address] [place], [address] Chloride [Moles/Vol] 98 mmol/L Normal 98-108 [facility] Comment on above: Performed By: #### L 503.6005, L100.0100, L500.4050 ####[facility] [address] [place], [address] CO2 [Moles/Vol] 15.0 mmol/L Low 21.0-32.0 [facility] Comment on above: Performed By: #### L 503.6005, L100.0100, L500.4050 ####[facility] [address] [place], [address] Creatinine [Mass/Vol] 1.98 mg/dL High 0.70-1.20 [facility] Comment on above: Performed By: #### L 503.6005, L100.0100, L500.4050 ####[facility] [address] [place], [address] ECRCL 51.75 ml/min Normal 50-250 [facility] Comment on above: Performed By: #### L 503.6005, L100.0100, L500.4050 ####[facility] [address] [place], [address] GAP 15 Normal 5-15 [facility] Comment on above: Performed By: #### L 503.6005, L100.0100, L500.4050 ####[facility] [address] [place], [address] GFR/1.73 sq M.predicted among non-blacks MDRD (S/P/Bld) [Vol rate/Area] 32 mL/min/{1.73_m2} Low >60 [facility] Comment on above: Result Comment: mL/m in/1.73m2 CKD-EPI Creatinine Equation (2020) Performed By: #### L 503.6005, L100.0100, L500.4050 ####[facility] [address] [place], [address] Globulin (S) [Mass/Vol] 3.7 g/dL Normal 2.2-4.2 [facility] Comment on above: Performed By: #### L 503.6005, L100.0100, L500.4050 ####[facility] [address] [place], [address] Glucose [Mass/Vol] 533 mg/dL Invalid Interpretation Code 70-99 [facility] Comment on above: Result Comment: Crit ical Result(s) Called at: 1907 by:??MIGUELITO CEDILLO Results read back by same. Performed By: #### L 503.6005, L100.0100, L500.4050 ####[facility] [address] [place], [address] Potassium [Moles/Vol] 3.8 mmol/L Normal 3.3-5.1 [facility] Comment on above: Performed By: #### L 503.6005, L100.0100, L500.4050 ####[facility] [address] [place], [address] Sodium [Moles/Vol] 128 mmol/L Low 133-145 [facility] Comment on above: Performed By: #### L 503.6005, L100.0100, L500.4050 ####[facility] [address] [place], [address] T PROT 7.1 g/dL Normal 5.9-8.4 [facility] Comment on above: Performed By: #### L 503.6005, L100.0100, L500.4050 ####[facility] [address] [place], [address] Urea nitrogen [Mass/Vol] 41 mg/dL High 4-19 [facility] Comment on above: Performed By: #### L 503.6005, L100.0100, L500.4050 ####[facility] [address] [place], [address] Electrolyte Panelon 07-05-20 25 Chloride [Moles/Vol] 101 mmol/L Normal 98-108 [facility] Comment on above: Performed By: #### L 503.6030, L501.5294 ####[facility] [address] [place], [address] CO2 [Moles/Vol] 15.9 mmol/L Low 21.0-32.0 [facility] Comment on above: Performed By: #### L 503.6030, L501.5294 ####[facility] [address] [place], [address] GAP 13 Normal 5-15 [facility] Comment on above: Performed By: #### L 503.6030, L501.5294 ####[facility] [address] [place], [address] Potassium [Moles/Vol] 3.6 mmol/L Normal 3.3-5.1 [facility] Comment on above: Performed By: #### L 503.6030, L501.5294 ####[facility] [address] [place], [address] Sodium [Moles/Vol] 130 mmol/L Low 133-145 [facility] Comment on above: Performed By: #### L 503.6030, L501.5294 ####[facility] [address] [place], [address] Chloride [Moles/Vol] 101 mmol/L Normal 98-108 [facility] Comment on above: Performed By: #### L 501.5294 ####[facility] [address] [place], [address] CO2 [Moles/Vol] 17.3 mmol/L Low 21.0-32.0 [facility] Comment on above: Performed By: #### L 501.5294 ####[facility] [address] [place], [address] GAP 11 Normal 5-15 [facility] Comment on above: Performed By: #### L 501.5294 ####[facility] [address] [place], [place], [address] Potassium [Moles/Vol] 3.6 mmol/L Normal 3.3-5.1 [facility] Comment on above: Performed By: #### L 501.5294 ####[facility] [address] [place], [place], [address] Sodium [Moles/Vol] 130 mmol/L Low 133-145 [facility] Comment on above: Performed By: #### L 501.5294 ####[facility] [address] [place], [place], [address] Emergency Department Summary on 07-05-2025 Emergency Department Summary Normal [facility] Eosinophil percentageOrdered By: Abhi Pina on 07-05-2025 Eosinophils/100 WBC (Bld) 0.9 % 0-5 [facility] Erythrocyte distribution wid th ratioOrdered By: Abhi Pina on 07-05-2025 Erythrocyte distribution width (RBC) [Ratio] 13.8 % 11.6-14.6 [facility] Erythrocyte distribution wid th standard deviationOrdered By: Abhi Pina on 07-05-2025 Erythrocyte distribution width (RBC) [Ratio] 48.8 fl High 35.1-43.9 [facility] Ferritinon 07-05-2025 Ferritin [Mass/Vol] 601 ng/mL High 22-378 [facility] Comment on above: Performed By: #### L 503.6550, L501.7300 ####[facility] [address] [place], [place], [id number] Glomerular filtration rate ( GFR) estimation/1.73 sq m using serum, plasma, or whole bOrdered By: Abhi Pina on 07-05-2025 GFR/1.73 sq M.predicted among non-blacks MDRD (S/P/Bld) [Vol rate/Area] 32 mL/min/{1.73_m2} Low >60 [facility] Comment on above: mL/min/1.73m2 CKD-EP I Creatinine Equation (2020) [facility] deOrdered By: Shana Mendoza on 07-05-2025 Glucose [Mass/Vol] 265 mg/dL High 74-106 [facility] Comment on above: MANAGEMENT OF PATIEN T CARE PER NURSING PROTOCOL H AND P Exam - Hospitaliston 07-05-2025 H&P Exam - Hospitalist Normal [facility] Hematocrit Auto (Bld) [Volum e fraction]Ordered By: Abhi Pina on 07-05-2025 Hematocrit (Bld) [Volume fraction] 28.2 % Low 37-47 [facility] Hemoglobin measurementOrdere d By: Abhi Pina on 07-05-2025 Hemoglobin (Bld) [Mass/Vol] 9.5 g/dL Low 12.0-15.0 [facility] Immature granulocytes/100 WB C Auto (Bld)Ordered By: Abhi Pina on 07-05-2025 Immature granulocytes/100 WBC (Bld) 0.900 % 0.0-0.9 [facility] Comment on above: IG% - Immature Granu locytes (promyelocytes, myelocytes and metamyelocytes) > 1% indicates that a LEFT SHIFT is Present. Iron measurement (mass/mass) Ordered By: Shana Mendoza on 07-05-2025 Iron (Unsp spec) [Mass/Mass] 12 ug/dL Low 50-170 [facility] Ketones Test strip Ql (U)Ord ered By: Abhi Pina on 07-05-2025 Ketones Ql (U) Negative Negative [facility] Laboratory - Chemistry and C hemistry - challengeOrdered By: Abhi Pina on 07-05-2025 AST [Catalytic activity/Vol] 19 U/L <32 [facility] Lactic Acidon 07-05-2025 Lactate [Moles/Vol] 1.5 mmol/L Normal 0.0-2.0 [facility] Comment on above: Performed By: #### L 503.6005 ####[facility] [address] [place], [address] Lactate [Moles/Vol] 2.2 mmol/L Invalid Interpretation Code 0.0-2.0 [facility] Comment on above: Order Comment: Y Result Comment: Crit ical Result(s) Called at: 1907 by:??MIGUELITO CEDILLO Results read back by same. Performed By: #### L 503.6005, L100.0100, L500.4050 ####[facility] [address] [place], [place], [address] Lactic acid measurementOrder ed By: Abhi Pina on 07-05-2025 Lactate [Moles/Vol] 1.5 mmol/L 0.0-2.0 [facility] MCV (mean corpuscular volume ) determinationOrdered By: Abhi Pina on 07-05-2025 MCV (RBC) [Entitic vol] 95.9 fL 81-99 [facility] Magnesiumon 07-05-2025 Magnesium [Mass/Vol] 2.2 mg/dL Normal 1.5-2.2 [facility] Comment on above: Performed By: #### L 501.6901, L501.5200 ####[facility] [address] [place], [place], [phone] Magnesium measurement (mass/ volume)Ordered By: Abhi Pina on 07-05-2025 Magnesium (Unsp spec) [Mass/Vol] 2.2 mg/dL 1.5-2.2 [facility] Mean corpuscular hemoglobin (MCH) determinationOrdered By: Abhi Pina on 07-05-2025 MCH (RBC) [Entitic mass] 32.3 pg High 27.0-32.0 [facility] Mean corpuscular hemoglobin concentration (MCHC) determinationOrdered By: Abhiasha Pina on 07-05-2025 MCHC (RBC) [Mass/Vol] 33.7 g/dL 32-36 [facility] Mean platelet volume determi nationOrdered By: Abhi Pina on 07-05-2025 Platelet mean volume (Bld) [Entitic vol] 10.4 fL 6.2-12.0 [facility] Microscopic analysis of urin e for red blood cells (RBC)Ordered By: Abhi Pina on 07-05-2025 Microscopic analysis of urine for red blood cells (RBC) 5-10 SEEN /hpf 0-5 [facility] Monocyte percentageOrdered B y: Abhi Pina on 07-05-2025 Monocytes/100 WBC (Bld) 5.8 % 0-10 [facility] Mucus LM Ql (Urine sed)Order ed By: Abhi Pina on 07-05-2025 Mucus Ql (Urine sed) 0 SEEN /hpf [facility] Neutrophil percentageOrdered By: Abhi Pina on 07-05-2025 Neutrophils/100 WBC (Bld) 77.6 % High 47-70 [facility] Nitrite Test strip Ql (U)Ord ered By: Abhi Pina on 07-05-2025 Nitrite Ql (U) Negative Negative [facility] No Panel InformationOrdered By: Shana Mendoza on 07-05-2025 Unsaturated Iron Binding Capacity 154 ug/dL Low 228-428 [facility] 154 ug/dL Low 228-428 [facility] No Panel InformationOrdered By: Abhi Pina on 07-05-2025 Blood Gas Sample Site Not entered [facility] Blood Gas Specimen Type SHIRA [facility] Oxygen Delivery Device Not entered [facility] SHIRA [facility] Not entered [facility] Nucleated red blood cell per centageOrdered By: Abhi Pina on 07-05-2025 Nucleated RBC/100 WBC (Bld) [Ratio] 0 % 0-5 [facility] Osmolality, Serumon 07-05-20 25 OSMOLALITY,SER 307 mOsm/KG High 275-295 [facility] Comment on above: Performed By: #### L 503.6529, L501.7300 ####[facility] [address] [place], [place], [phone] Phosphoruson 07-05-2025 Phosphate [Mass/Vol] 3.0 mg/dL Normal 2.7-4.5 [facility] Comment on above: Performed By: #### L 965.5280 ####[facility] [address] [place], [place], [phone] Platelet countOrdered By: Min Pina on 07-05-2025 Platelets (Bld) [#/Vol] 136 10*3/uL Low 150-450 [facility] Potassium measurement (mass/ volume)Ordered By: Abhi Pina on 07-05-2025 Potassium (Unsp spec) [Mass/Vol] 3.6 mmol/L 3.3-5.1 [facility] Protein Test strip Ql (U)Ord ered By: Abhi Pina on 07-05-2025 Protein Ql (U) 30 mg/dl High Negative [facility] RBC Auto (Bld) [#/Vol]Ordere d By: Abhi Pina on 07-05-2025 RBC (Bld) [#/Vol] 2.94 10*6/uL Low 4.2-5.4 [facility] Serum creatinine measurement (mass/volume)Ordered By: Abhi Pina on 07-05-2025 Creatinine [Mass/Vol] 1.98 mg/dL High 0.70-1.20 [facility] Serum globulin measurementOr dered By: Abhi Pina on 07-05-2025 Globulin (S) [Mass/Vol] 3.7 g/dL 2.2-4.2 [facility] Serum glucose measurement (m ass/volume)Ordered By: Abhi Pina on 07-05-2025 Glucose [Mass/Vol] 533 mg/dL High 70-99 [facility] Comment on above: Critical Result(s) C alled at: 1907 by: MIGUELITO CEDILLO Results read back by same. Serum or plasma alanine arizmendi otransferase (ALT) measurementOrdered By: Abhi Pina on 07-05-2025 ALT [Catalytic activity/Vol] 26 U/L <35 [facility] Serum or plasma albumin sharron urement (mass/volume)Ordered By: Abhi Pina on 07-05-2025 Albumin [Mass/Vol] 3.3 g/dL Low 3.5-5.0 [facility] Serum or plasma albumin/glob ulin mass ratioOrdered By: Abhiasha Pina on 07-05-2025 Albumin/Globulin [Mass ratio] 0.9 {ratio} 0.9-2.4 [facility] Serum or plasma alkaline toyin sphatase measurementOrdered By: Abhi Pina on 07-05-2025 ALP [Catalytic activity/Vol] 183 U/L High 35-104 [facility] Serum or plasma calcium sharron urement (mass/volume)Ordered By: Abhi Pina on 07-05-2025 Calcium [Mass/Vol] 8.3 mg/dL 7.6-11.0 [facility] Serum or plasma ferritin jacob surement (mass/volume)Ordered By: Shana Mnedoza on 07-05-2025 Ferritin [Mass/Vol] 601 ng/mL High 22-378 [facility] Serum or plasma iron saturat ion measurement (mass fraction)Ordered By: Shana Mendoza on 07-05-2025 Iron saturation [Mass fraction] 7.2 % Low 13-59 [facility] Comment on above: Previous reported re sult: 7.0 %Edited by: LIS on 07/06/25:0028 AMENDED REPORT 07/06/25 0028 IRON SATURATION previously reported as: 7.0 L % TIBC DID NOT CROSS OVER FROM [employer] Serum or plasma urea nitroge n measurement (mass/volume)Ordered By: Abhi Pina on 07-05-2025 Urea nitrogen [Mass/Vol] 41 mg/dL High 4-19 [facility] Sodium levelOrdered By: Abhi Pina on 07-05-2025 Sodium [Moles/Vol] 130 mmol/L Low 133-145 [facility] Squamous epithelial cells de tection in urine sediment by light microscopyOrdered By: Abhi Pina on 07-05-2025 Epithelial cells.squamous LM Ql (Urine sed) 5-10 SEEN /hpf 5-10 [facility] Total proteinOrdered By: Abhi Pina on 07-05-2025 Protein [Mass/Vol] 7.1 g/dL 5.9-8.4 [facility] Urinalysis, Completeon 07-05 BACTERIA 3+ /hpf Normal None Seen [facility] Comment on above: Order Comment: CLEAN CATCH Performed By: #### L 400.0001 ####[facility] [address] [place], [place], [phone] EPI,SQUAMOUS 5-10 SEEN Normal 5-10 [facility] Comment on above: Order Comment: CLEAN CATCH Performed By: #### L 400.0001 ####[facility] [address] [place], [address] RBC 5-10 SEEN Normal 0-5 [facility] Comment on above: Order Comment: CLEAN CATCH Performed By: #### L 400.0001 ####[facility] [address] [place], [address] WBC 10-25 SEEN Normal 0-5 [facility] Comment on above: Order Comment: CLEAN CATCH Performed By: #### L 400.0001 ####[facility] [address] [place], [address] Mucus Ql (Urine sed) 0 SEEN Normal [facility] Comment on above: Order Comment: CLEAN CATCH Performed By: #### L 400.0001 ####[facility] [address] [place], [place], [phone] Urine clarityOrdered By: Abhi Pina on 07-05-2025 Clarity (U) Sl. Cloudy Clear [facility] Urine color determinationOrd ered By: Abhi Pina on 07-05-2025 Color (U) Straw Yellow [facility] Urine cultureOrdered By: Abhi Pina on 07-05-2025 Bacteria identified Cx Nom (U) Escherichia coli Abnormal [facility] Urine glucose detectionOrder ed By: Abhi Pina on 07-05-2025 Glucose Ql (U) 1000 mg/dl High Normal [facility] Urine leukocyte esterase det ection by dipstickOrdered By: Abhi Pina on 07-05-2025 Leukocyte esterase Test strip Ql (U) 100 /ul High Negative [facility] Urine pHOrdered By: Abhi barry on 07-05-2025 pH (U) 6.0 [pH] 5.0 - 8.0 [facility] Urine sediment bacteria coun t by microscopy (number/high power field)Ordered By: Abhi Pina on 07-05-2025 Bacteria LM.HPF (Urine sed) [#/Area] 3 /[HPF] None Seen [facility] Urine specific gravity measu rementOrdered By: Abhi Pina on 07-05-2025 Specific gravity (U) [Rel density] 1.010 1.002-1.030 [facility] Urine urobilinogen measureme ntOrdered By: Abhi Pina on 07-05-2025 Urobilinogen Ql (U) Normal mg/dl Normal [facility] Venous Blood Gason Blood Gas Type SHIRA Normal [facility] Comment on above: Performed By: #### L 9000.0810 ####[facility] [address] [place], [address] CO2 [Moles/Vol] 17 mmol/L Low 23-33 [facility] Comment on above: Performed By: #### L 9000.0810 ####[facility] [address] [place], [address] HCO3 (Bld) [Moles/Vol] 16 mmol/L Low 22-26 [facility] Comment on above: Performed By: #### L 9000.0810 ####[facility] [address] [place], [address] O2 Delivery Dev Not entered [facility] Comment on above: Performed By: #### L 9000.0810 ####[facility] [address] [place], [address] SITE Not entered Normal [facility] Comment on above: Performed By: #### L 9000.0810 ####[facility] [address] [place], [address] VBG BE -10 mmol/L Low -1.0-3.5 [facility] Comment on above: Performed By: #### L 9000.0810 ####[facility] [address] [place], [address] VBG pCO2 31.6 mmHg Low 41-51 [facility] Comment on above: Performed By: #### L 9000.0810 ####[facility] [address] [place], [place], [address] VBG pH 7.32 Normal 7.32-7.42 [facility] Comment on above: Performed By: #### L 9000.0810 ####[facility] [address] [place], [place], [address] VBG PO2 77 mmHg High 25-40 [facility] Comment on above: Performed By: #### L 9000.0810 ####[facility] [address] [place], [place], [address] VBG SO2 94 High 50-70 [facility] Comment on above: Performed By: #### L 9000.0810 ####[facility] [address] [place], [place], [phone] Venous blood base excess jacob surementOrdered By: Abhi Pina on 07-05-2025 Base excess Calc (BldV) [Moles/Vol] -10 mmol/L Low -1.0-3.5 [facility] Venous blood bicarbonate jacob surementOrdered By: Abhi Pina on 07-05-2025 HCO3 (Bld) [Moles/Vol] 16 mmol/L Low 22-26 [facility] Venous blood oxygen saturati on measurementOrdered By: Abhi Pina on 07-05-2025 Oxygen saturation in Blood 94 % High 50-70 [facility] Venous blood pH measurementO rdered By: Abhi Pina on 07-05-2025 pH (BldV) 7.32 [pH] 7.32-7.42 [facility] Venous blood partial pressur e of carbon dioxide measurementOrdered By: Abhi Pina on 07-05-2025 CO2 (BldV) [Partial pressure] 31.6 mm[Hg] Low 41-51 [facility] Venous blood partial pressur e of oxygen measurementOrdered By: Abhi Pina on 07-05-2025 Oxygen (BldV) [Partial pressure] 77 mm[Hg] High 25-40 [facility] White blood cell (WBC) count Ordered By: Abhi Pina on 07-05-2025 WBC (Bld) [#/Vol] 6.9 10*3/uL 4.4-11.0 [facility] White blood cell countOrdere d By: Abhi Pina on 07-05-2025 White blood cell count 10-25 SEEN /hpf 0-5 [facility] Orthopedic Visit Reporton Orthopedic Visit Report Normal [facility] Bedside Glucoseon 06-23-2025 FINGERSTICK GLU 210 mg/dL High 74-106 [facility] Comment on above: Result Comment: [place] OF PATIENT CARE PER NURSING PROTOCOL Performed By: #### L 501.080 ####[facility] [address] [place], [address] Discharge Instructionon 06-05 Discharge Instruction Normal [facility] de[facility]dered By: Brett Quiroga on 06-23-2025 Glucose [Mass/Vol] 210 mg/dL High 74-106 [facility] Comment on above: MANAGEMENT OF PATIEN T CARE PER NURSING PROTOCOL MR/POSTOP.ANEon 06-23-2025 MR/POSTOP.ANE Normal [facility] Operative Reporton Operative Report Normal [facility] ,Urineon 06-23-2025 Beta HCG ( test) Ql (U) Negative Normal [facility] Comment on above: Result Comment: Very dilute urine specimens, as indicated by a low specificgravity, may not contain congressional representative levels of hCG.If is still suspected, a first morning urinespecimen should be collected 48 hours later and tested. Performed By: #### L 400.7600 ####[facility] [address] [place], [address] Urine testOrdered By: Woody Choudhary on 06-23-2025 HCG ( test) Ql (U) Negative [facility] Comment on above: Very dilute urine sp ecimens, as indicated by a low specificgravity, may not contain congressional representative levels of hCG. If is still suspected, a first morning urinespecimen should be collected 48 hours later and tested. Chiropractic Reporton 2024 Chiropractic Report Normal [facility] MR/PAT.ANEon 06-15-2025 MR/PAT.ANE Normal [facility] Electrocardiogram reportOrde red By: Vin Montes on 06-11-2025 EKG study [facility] [address] [place] [address] 12 Lead EKG 06/10/25 1247 MR#: [id number] Acct: [id number] Name: TORI GRAY Rep #:[id number] : 1980 44 From: Vin Montes MD Attending Dr: Dr. Brett Quiroga MD Status: PRE [facility] [place]ing Dr: Woody Choudhary MD Date: [place] [facility] [place] Sex: F C Admitted: Test Reason : [...] ECG Confirmed by JYOTI SHEARER, VIN ([id number]), makeup editor PRISCILA FERRERA ([id number]) on 06/11/2025 5:54:48 AM Referred By: Brett Quiroga Confirmed By: VIN MONTES MD 06/11/25 0554 Date _ Vin Montes MD CC: Dr. Woody Choudhary MD; Dr. Brett Quiroga MD; Dr. Ivette Grimes MD ~ Signed [facility] Work Phone: 12 Lead EKGon 06-10-2025 12 Lead EKG Normal [facility] LDL CHOLESTEROL DIRECT (FOR REMOTE [facility] USE)on 06-10-2025 [facility] LDL, Directon 06-10-2025 Cholesterol in LDL [Mass/Vol] 96 mg/dL Normal 0-99 [facility] Comment on above: Result Comment: Perf ormed at: CB - [facility] [address] [place], [place] [id number] Director: José Antonio Aldana PhD, Phone: [phone] Performed By: #### L 3300.4490, L549.9998 ####[facility] [address] [place], [place], [address] COMMENT TNP Normal . [facility] Comment on above: Performed By: #### L 3300.4490, L501.9985 ####[facility] [address] [place], [place], [phone] [facility]NPNon [facility] TORI GRAY ([id number]) 1980 F Date Time Provider Department 06/09/25 [facility] During your visit today, we recorded the following information about you: Nirmala Storey LPN 06/09/2025 10:21 AM Signed HgbA1C from [facility] 7.4 Ivette Grimes MD 06/09/2025 10:49 [...] microalbuminuria, with long-term current use of insulin ([facility]) [E11.29, R80.9, Z79.4] Order(s):HBA1C (OUTSIDE) [6124885] Order #: [id number] semaglutide (OZEMPIC) 2 mg/dose (8 mg/3 mL) pen injectorInject 2 mg subcutaneously one time a week.Disp: 3 mLRfl: 5 LDL CHOLESTEROL DIRECT (FOR REMOTE [facility] USE) [SQRLDL] Order #: [id number] Prescriptions as of 06/18/2025 - omeprazole (PRILOSEC) [...] tablet by mouth once daily. - Ipratropium Wynne (ATROVENT) 21 mcg (0.03 %) nasal spray [...] DM - Controlled E11.9 Insulin: No - Xxvamtub-Wf-Njq-Fe- FA tab Take 1 tablet by mouth [...] [facility] medical [facility]01/23/2010 12/06/2012 Class: Chronic Routine gynecological examination [Z01.419] [...] [I10] 10 (more content not included)... Normal [facility] Cholesterol in LDL Direct as say [Mass/Vol]Ordered By: Ivette Grimes on 06-09-2025 Cholesterol in LDL [Mass/Vol] 96 mg/dL 0-99 [facility] Comment on above: Performed at: [place] [id number] Director: José Antonio Aldana PhD, Phone: [phone] HBA1C (OUTSIDE)on 06-09-2025 [facility] Hemoglobin A1con 06-09-2025 HbA1c (Bld) [Mass fraction] 7.4 % High <=5.6 [facility] Comment on above: Result Comment: Norm al < 5.7 % Prediabetic 5.7 - 6.4 % Diabetic >or= 6.5 % Please note range changes. Performed By: #### L 3300.5490, L501.9983 ####[facility] [address] [place], [address] Hemoglobin A1c percentageOrd ered By: Ivette Grimes on 06-09-2025 HbA1c (Bld) [Mass fraction] 7.4 % High <5.7 [facility] Comment on above: Normal < 5.7 % Predi abetic 5.7 - 6.4 % Diabetic >or= 6.5 % Please note range changes. Laboratory - Miscellaneous t estsOrdered By: Ivette Grimes on 06-09-2025 Service comment (Unsp spec) [Interp] TNP [facility] Comment on above: Test not performed CNOVon 06-07-2025 CNOV [facility] TORI GRAY ([id number]) 1980 F Date Time Provider Department 06/07/25 6:40 PM [facility] During your visit today, we recorded [...] with Dr. Quiroga on June 23 at [facility]. - Keep your neurology appointment on [...] for June [address] Quiroga at [facility]. - Follow-up appointment with Dr. Camacho [...] 1 tablet by mouth once daily. Ipratropium Wynne (ATROVENT) 21 mcg (0.03 %) nasal spray [...] 1 Each by INTRAUTERINE route as directed. Urfksgpn-De-Juu-Fe- FA tab Take 1 tablet by mouth [...] blood sugar(s) (more content not included)... Normal [facility] Absolute lymphocyte countOrd ered By: HEALTH ASSESSMENT on 06-05-2025 Lymphocytes Auto (Unsp spec) [#/Vol] 2.43 10*3/uL 0.83-4.51 [facility] Absolute neutrophil countOrd ered By: HEALTH ASSESSMENT on 06-05-2025 Neutrophils (Bld) [#/Vol] 6.3 10*3/uL 2.0-7.7 [facility] Absolute nucleated red blood cell countOrdered By: HEALTH ASSESSMENT on 06-05-2025 Nucleated RBC (Bld) [#/Vol] 0.00 10*3/uL 0-5 [facility] Anion gap in Serum or Plasma Ordered By: HEALTH ASSESSMENT on 06-05-2025 Anion gap [Moles/Vol] 14 mmol/L 5-15 [facility] BUN/creatinine ratioOrdered By: HEALTH ASSESSMENT on 06-05-2025 Urea nitrogen/Creatinine [Mass ratio] 10.6 mg/mg 10-20 [facility] Bilirubin Test strip Ql (U)O rdered By: HEALTH ASSESSMENT on 06-05-2025 Bilirubin Ql (U) Negative Negative [facility] Bilirubin directOrdered By: HEALTH ASSESSMENT on 06-05-2025 Bilirubin.direct [Mass/Vol] 0.20 mg/dL 0.00-0.30 [facility] Bilirubin, totalOrdered By: HEALTH ASSESSMENT on 06-05-2025 Bilirubin [Mass/Vol] 0.51 mg/dL 0.00-1.30 [facility] CBC, Employeeon 06-05-2025 Absolute Lymph 2.43 X10 3/uL Normal 0.83-4.51 [facility] Comment on above: Performed By: #### L 400.0100, L100.0200, L500.2900 ####[facility] [facility] [address] [place], [address] Absolute Neut 6.3 X10 3/uL Normal 2.0-7.7 [facility] Comment on above: Performed By: #### L 400.0100, L100.0200, L500.2900 ####[facility] [address] [place], [address] Basophils/100 WBC (Bld) 0.9 % Normal 0-1 [facility] Comment on above: Performed By: #### L 400.0100, L100.0200, L500.2900 ####[facility] [address] [place], [address] Eosinophils/100 WBC (Bld) 1.8 % Normal 0-5 [facility] Comment on above: Performed By: #### L 400.0100, L100.0200, L500.2900 ####[facility] [address] [place], [address] Erythrocyte distribution width (RBC) [Ratio] 14.5 % Normal 11.6-14.6 [facility] Comment on above: Performed By: #### L 400.0100, L100.0200, L500.2900 ####[facility] [address] [place], [address] Hematocrit (Bld) [Volume fraction] 39.2 % Normal 37-47 [facility] Comment on above: Performed By: #### L 400.0100, L100.0200, L500.2900 ####[facility] [address] [place], [address] Hemoglobin (Bld) [Mass/Vol] 13.5 g/dL Normal 12.0-15.0 [facility] Comment on above: Performed By: #### L 400.0100, L100.0200, L500.2900 ####[facility] [address] [place], [address] Lymphocytes/100 WBC (Bld) 25.5 % Normal 19-41 [facility] Comment on above: Performed By: #### L 400.0100, L100.0200, L500.2900 ####[facility] [address] [place], [address] MCH (RBC) [Entitic mass] 32.4 pg High 27.0-32.0 [facility] Comment on above: Performed By: #### L 400.0100, L100.0200, L500.2900 ####[facility] [address] [place], [address] MCHC (RBC) [Mass/Vol] 34.4 g/dL Normal 32-36 [facility] Comment on above: Performed By: #### L 400.0100, L100.0200, L500.2900 ####[facility] [address] [place], [address] MCV (RBC) [Entitic vol] 94.0 fL Normal 81-99 [facility] Comment on above: Performed By: #### L 400.0100, L100.0200, L500.2900 ####[facility] [address] [place], [address] Monocytes/100 WBC (Bld) 3.6 % Normal 0-10 [facility] Comment on above: Performed By: #### L 400.0100, L100.0200, L500.2900 ####[facility] [address] [place], [address] Neutrophils/100 WBC (Bld) 66.2 % Normal 47-70 [facility] Comment on above: Performed By: #### L 400.0100, L100.0200, L500.2900 ####[facility] [address] [place], [address] NRBC # 0.00 10 3/uL Normal 0-5 [facility] Comment on above: Performed By: #### L 400.0100, L100.0200, L500.2900 ####[facility] [address] [place], [address] Nucleated RBC (Bld) [#/Vol] 0 10*3/uL Normal 0-5 [facility] Comment on above: Performed By: #### L 400.0100, L100.0200, L500.2900 ####[facility] [address] [place], [address] Platelet mean volume (Bld) [Entitic vol] 9.6 fL Normal 6.2-12.0 [facility] Comment on above: Performed By: #### L 400.0100, L100.0200, L500.2900 ####[facility] [address] [place], [address] Platelets (Bld) [#/Vol] 192 10*3/uL Normal 150-450 [facility] Comment on above: Performed By: #### L 400.0100, L100.0200, L500.2900 ####[facility] [address] [place], [address] RBC (Bld) [#/Vol] 4.17 10*6/uL Low 4.2-5.4 [facility] Comment on above: Performed By: #### L 400.0100, L100.0200, L500.2900 ####[facility] [address] [place], [address] RDW SD 49.7 fl High 35.1-43.9 [facility] Comment on above: Performed By: #### L 400.0100, L100.0200, L500.2900 ####[facility] [address] [place], [address] WBC (Bld) [#/Vol] 9.5 10*3/uL Normal 4.4-11.0 [facility] Comment on above: Performed By: #### L 400.0100, L100.0200, L500.2900 ####[facility] [address] [place], [address] Calculated very low density lipoprotein (VLDL) cholesterol measurementOrdered By: HEALTH ASSESSMENT on 06-05-2025 Calculated very low density lipoprotein (VLDL) cholesterol measurement 62 mg/dL High 5-40 [facility] Carbon dioxide, total [Moles /volume] in Central venous bloodOrdered By: HEALTH ASSESSMENT on 06-05-2025 CO2 [Moles/Vol] 17.5 mmol/L Low 21.0-32.0 [facility] Chloride assayOrdered By: HE ALTH ASSESSMENT on 06-05-2025 Chloride [Moles/Vol] 105 mmol/L 98-108 [facility] Employee Profileon LDH 188 U/L Normal 84-246 [facility] Comment on above: Performed By: #### L 400.0100, L100.0200, L500.2900 ####[facility] [address] [place], [address] Phosphate [Mass/Vol] 2.2 mg/dL Low 2.7-4.5 [facility] Comment on above: Performed By: #### L 400.0100, L100.0200, L500.2900 ####[facility] [address] [place], [address] URIC 6.9 mg/dL High 2.6-6.0 [facility] Comment on above: Result Comment: The drugs N-Acetylcysteine and Metamizole may falselydepress this assay. Performed By: #### L 400.0100, L100.0200, L500.2900 ####[facility] [address] [place], [address] Erythrocyte distribution wid th ratioOrdered By: HEALTH ASSESSMENT on 06-05-2025 Erythrocyte distribution width (RBC) [Ratio] 14.5 % 11.6-14.6 [facility] Erythrocyte distribution wid th standard deviationOrdered By: HEALTH ASSESSMENT on 06-05-2025 Erythrocyte distribution width (RBC) [Ratio] 49.7 fl High 35.1-43.9 [facility] Glomerular filtration rate ( GFR) estimation/1.73 sq m using serum, plasma, or whole bOrdered By: HEALTH ASSESSMENT on 06-05-2025 GFR/1.73 sq M.predicted among non-blacks MDRD (S/P/Bld) [Vol rate/Area] 94 mL/min/{1.73_m2} >60 [facility] Comment on above: mL/min/1.73m2 CKD-EP I Creatinine Equation (2020) Hematocrit Auto (Bld) [Volum e fraction]Ordered By: HEALTH ASSESSMENT on 06-05-2025 Hematocrit (Bld) [Volume fraction] 39.2 % 37-47 [facility] Hemoglobin measurementOrdere d By: HEALTH ASSESSMENT on 06-05-2025 Hemoglobin (Bld) [Mass/Vol] 13.5 g/dL 12.0-15.0 [facility] Ketones Test strip Ql (U)Ord ered By: HEALTH ASSESSMENT on 06-05-2025 Ketones Ql (U) Negative Negative [facility] LDL calc ser/plasOrdered By: HEALTH ASSESSMENT on 06-05-2025 Cholesterol in LDL [Mass/Vol] 92 mg/dL [facility] Comment on above: Jszhuuoqph=828-912 m g/dL & Higher Bwbn=468 mg/dL or greaterFriedwald Equation for LDL-C Laboratory - Chemistry and C hemistry - challengeOrdered By: HEALTH ASSESSMENT on 06-05-2025 AST [Catalytic activity/Vol] 41 U/L High <32 [facility] Lactate dehydrogenase (LDH) measurementOrdered By: HEALTH ASSESSMENT on 06-05-2025 LDH [Catalytic activity/Vol] 188 U/L 84-246 [facility] MCV (mean corpuscular volume ) determinationOrdered By: HEALTH ASSESSMENT on 06-05-2025 MCV (RBC) [Entitic vol] 94.0 fL 81-99 [facility] Mean corpuscular hemoglobin (MCH) determinationOrdered By: HEALTH ASSESSMENT on 06-05-2025 MCH (RBC) [Entitic mass] 32.4 pg High 27.0-32.0 [facility] Mean corpuscular hemoglobin concentration (MCHC) determinationOrdered By: HEALTH ASSESSMENT on 06-05-2025 MCHC (RBC) [Mass/Vol] 34.4 g/dL 32-36 [facility] Mean platelet volume determi nationOrdered By: HEALTH ASSESSMENT on 06-05-2025 Platelet mean volume (Bld) [Entitic vol] 9.6 fL 6.2-12.0 [facility] Neutrophil percentageOrdered By: HEALTH ASSESSMENT on 06-05-2025 Neutrophils/100 WBC (Bld) 66.2 % 47-70 [facility] Nitrite Test strip Ql (U)Ord ered By: HEALTH ASSESSMENT on 06-05-2025 Nitrite Ql (U) Negative Negative [facility] No Panel InformationOrdered By: HEALTH ASSESSMENT on 06-05-2025 41 U/L High <32 [facility] Nucleated red blood cell per centageOrdered By: HEALTH ASSESSMENT on 06-05-2025 Nucleated RBC/100 WBC (Bld) [Ratio] 0 % 0-5 [facility] Platelet countOrdered By: HE ALTH ASSESSMENT on 06-05-2025 Platelets (Bld) [#/Vol] 192 10*3/uL 150-450 [facility] Potassium measurement (mass/ volume)Ordered By: HEALTH ASSESSMENT on 06-05-2025 Potassium (Unsp spec) [Mass/Vol] 4.0 mmol/L 3.3-5.1 [facility] Protein Test strip Ql (U)Ord ered By: HEALTH ASSESSMENT on 06-05-2025 Protein Ql (U) 100 mg/dl High Negative [facility] RBC Auto (Bld) [#/Vol]Ordere d By: HEALTH ASSESSMENT on 06-05-2025 RBC (Bld) [#/Vol] 4.17 10*6/uL Low 4.2-5.4 [facility] Screening total cholesterol/ high density lipoprotein (HDL) cholesterol ratioOrdered By: HEALTH ASSESSMENT on 06-05-2025 Cholesterol.total/Choles terol in HDL [Mass ratio] 5.63 {ratio} [facility] Serum creatinine measurement (mass/volume)Ordered By: HEALTH ASSESSMENT on 06-05-2025 Creatinine [Mass/Vol] 0.80 mg/dL 0.70-1.20 [facility] Serum globulin measurementOr dered By: HEALTH ASSESSMENT on 06-05-2025 Globulin (S) [Mass/Vol] 3.3 g/dL 2.2-4.2 [facility] Serum glucose measurement (m ass/volume)Ordered By: HEALTH ASSESSMENT on 06-05-2025 Glucose [Mass/Vol] 210 mg/dL High 70-99 [facility] Serum or plasma alanine arizmendi otransferase (ALT) measurementOrdered By: HEALTH ASSESSMENT on 06-05-2025 ALT [Catalytic activity/Vol] 43 U/L High <35 [facility] Serum or plasma albumin sharron urement (mass/volume)Ordered By: HEALTH ASSESSMENT on 06-05-2025 Albumin [Mass/Vol] 4.2 g/dL 3.5-5.0 [facility] Serum or plasma albumin/glob ulin mass ratioOrdered By: HEALTH ASSESSMENT on 06-05-2025 Albumin/Globulin [Mass ratio] 1.3 {ratio} 0.9-2.4 [facility] Serum or plasma alkaline toyin sphatase measurementOrdered By: HEALTH ASSESSMENT on 06-05-2025 ALP [Catalytic activity/Vol] 84 U/L 35-104 [facility] Serum or plasma calcium sharron urement (mass/volume)Ordered By: HEALTH ASSESSMENT on 06-05-2025 Calcium [Mass/Vol] 8.8 mg/dL 7.6-11.0 [facility] Serum or plasma cholesterol in HDL measurement (mass/volume)Ordered By: HEALTH ASSESSMENT on 06-05-2025 Cholesterol in HDL [Mass/Vol] 33 mg/dL Low >40 [facility] Comment on above: National Cholesterol Education Program (NCEP) guidelines:<40 mg/dL: Low HDL-cholesterol (major risk factor for CHD)>= 60 mg/dL: High HDL-cholesterol (negative risk factor for CHD)HDL-cholesterol is affected by a number of factors, e.g. smoking, exercise, hormones, sex and age. Serum or plasma cholesterol measurement (mass/volume)Ordered By: HEALTH ASSESSMENT on 06-05-2025 Cholesterol [Mass/Vol] 187 mg/dL <201 [facility] Comment on above: Cholesterol level, D esirable <200 mg/dLBorderline high cholesterol 200-239 mg/dLHigh cholesterol >=240 mg/dLRecommendations of the NCEP Adult Treatment Panel for the following risk-cutoff thresholds for the [place] population. Serum or plasma urea nitroge n measurement (mass/volume)Ordered By: HEALTH ASSESSMENT on 06-05-2025 Urea nitrogen [Mass/Vol] 9 mg/dL 4-19 [facility] Serum or plasma uric acid me asurement (mass/volume)Ordered By: HEALTH ASSESSMENT on 06-05-2025 Urate [Mass/Vol] 6.9 mg/dL High 2.6-6.0 [facility] Comment on above: The drugs N-Acetylcy steine and Metamizole may falsely depress this assay. Sodium levelOrdered By: [facility] ASSESSMENT on 06-05-2025 Sodium [Moles/Vol] 137 mmol/L 133-145 [facility] Total proteinOrdered By: [facility] ASSESSMENT on 06-05-2025 Protein [Mass/Vol] 7.5 g/dL 5.9-8.4 [facility] Triglycerides measurementOrd ered By: HEALTH ASSESSMENT on 06-05-2025 Triglyceride [Mass/Vol] 310 mg/dL High <199 [facility] Comment on above: The drugs N-Acetylcy steine and Metamizole may falsely depress this assay. Normal range: <150 mg/dLBorderline High: 150-199 mg/dLHigh: 200-499 mg/dLVery High: >500 mg/dL Urinalysis, Employeeon 06-05 BILIRUBIN URINE Negative Normal Negative [facility] Comment on above: Order Comment: Urine , Random Performed By: #### L 400.0100, L100.0200, L500.2900 ####[facility] [address] [place], [address] Clarity (U) Sl. Cloudy Normal Clear [facility] Comment on above: Order Comment: Urine , Random Performed By: #### L 400.0100, L100.0200, L500.2900 ####[facility] [address] [place], [address] Color (U) Yellow Normal Yellow [facility] Comment on above: Order Comment: Urine , Random Performed By: #### L 400.0100, L100.0200, L500.2900 ####[facility] [address] [place], [address] GLUCOSE, UR Normal Normal Normal [facility] Comment on above: Order Comment: Urine , Random Performed By: #### L 400.0100, L100.0200, L500.2900 ####[facility] [address] [place], [address] KETONE UR Negative Normal Negative [facility] Comment on above: Order Comment: Urine , Random Performed By: #### L 400.0100, L100.0200, L500.2900 ####[facility] [address] [place], [address] LEUK ESTERASE 500 /ul Abnormal Negative [facility] Comment on above: Order Comment: Urine , Random Performed By: #### L 400.0100, L100.0200, L500.2900 ####[facility] [address] [place], [address] Nitrite Ql (U) Negative Normal Negative [facility] Comment on above: Order Comment: Urine , Random Performed By: #### L 400.0100, L100.0200, L500.2900 ####[facility] [address] [place], [address] OCCULT BLOOD-UR 25 /ul Abnormal Negative [facility] Comment on above: Order Comment: Urine , Random Performed By: #### L 400.0100, L100.0200, L500.2900 ####[facility] [address] [place], [address] pH UR 6.0 Normal 5.0 - 8.0 [facility] Comment on above: Order Comment: Urine , Random Performed By: #### L 400.0100, L100.0200, L500.2900 ####[facility] [address] [place], [address] PROT DIPSTX 100 mg/dl Abnormal Negative [facility] Comment on above: Order Comment: Urine , Random Performed By: #### L 400.0100, L100.0200, L500.2900 ####[facility] [address] [place], [address] SP.GR. DIPSTX 1.015 Normal 1.002-1.030 [facility] Comment on above: Order Comment: Urine , Random Performed By: #### L 400.0100, L100.0200, L500.2900 ####[facility] [address] [place], [address] UROBILI Normal Normal Normal [facility] Comment on above: Order Comment: Urine , Random Performed By: #### L 400.0100, L100.0200, L500.2900 ####[facility] [address] [place], [address] Urine clarityOrdered By: CARLEEN [facility] ASSESSMENT on 06-05-2025 Clarity (U) Sl. Cloudy Clear [facility] Urine color determinationOrd ered By: HEALTH ASSESSMENT on 06-05-2025 Color (U) Yellow Yellow [facility] Urine glucose detectionOrder ed By: HEALTH ASSESSMENT on 06-05-2025 Glucose Ql (U) Normal mg/dl Normal [facility] Urine leukocyte esterase det ection by dipstickOrdered By: HEALTH ASSESSMENT on 06-05-2025 Leukocyte esterase Test strip Ql (U) 500 /ul High Negative [facility] Urine pHOrdered By: HEALTH A SSESSMENT on 06-05-2025 pH (U) 6.0 [pH] 5.0 - 8.0 [facility] Urine specific gravity measu rementOrdered By: HEALTH ASSESSMENT on 06-05-2025 Specific gravity (U) [Rel density] 1.015 1.002-1.030 [facility] Urine urobilinogen measureme ntOrdered By: HEALTH ASSESSMENT on 06-05-2025 Urobilinogen Ql (U) Normal mg/dl Normal [facility] White blood cell (WBC) count Ordered By: HEALTH ASSESSMENT on 06-05-2025 WBC (Bld) [#/Vol] 9.5 10*3/uL 4.4-11.0 [facility] Chiropractic Reporton 2024 Chiropractic Report Normal [facility] Orthopedic Visit Reporton Orthopedic Visit Report Normal [facility] Chiropractic Reporton 2024 Chiropractic Report Normal [facility] Magnetic resonance imaging r eportOrdered By: Salazar Tyson on 04-19-2025 Study report [facility] Imaging Services [address] [place] [address] Upper Ext Joint Only(Routine) MR#: [id number] Acct: [id number] Name: GRAYROSIECHELSEY KELLY Rep #: [id number] : 1980 F 44 From: Moncho Tyson MD PCP: Dr. Ivette Grimes MD Status: GERMAIN CURTIS Study:Upper Ext Joint Only(Routine) Date of Exam: 04/17/25 Exam# [id number] Ordering Dr: Brett Quiroga MD PROCEDURE: UPPER [...] Quiroga MD; Dr. Ivette Grimes MD ~ Anaesthesiologist: Signed [facility] Upper Ext Joint Only(Routine )on 04-17-2025 Upper Ext Joint Only(Routine) Normal [facility] GRAYTORI ([id number]) 1980 F Date Time Provider Department 04/07/25 [...] tablet by mouth once daily. - Ipratropium Wynne (ATROVENT) 21 mcg (0.03 %) nasal spray [...] Each by INTRAUTERINE route as directed. - Natoma-3 Fatty Acids (FISH OIL) 500 mg cap Take 1 capsule by mouth once daily. - blood sugar diagnostic (BLOOD GLUCOSE TEST) test strip Test blood sugar(s) 1 times daily. Dx: Type 2 DM - Controlled E11.9 Insulin: Yes - Lancets lancets Test blood sugar(s) 1 times daily. Dx: Type 2 DM - Controlled E11.9 Insulin: No - Leeatyyc-Mn-Nrs-Fe- FA tab Take 1 tablet by mouth [...] 05/06/2009 01/23/2010 Routine general medical examination at [facility]*01/23/2010 12/06/2012 Class: Chronic Routine gynecological examination [Z01.419] 01/23/2010 02/22/2014 Class: Chronic Morbid Obesity [E66.01] 01/23/2010 Lumbar Disc Disorder [M51.9] 02/16/2010 Routine general medical examination at [facility]*12/06/2012 02/22/2014 Anxiety [F41.9] 06/07/2014 Type 2 [...] 09/04/2022 09/04/2022 (more content not included)... Normal [facility] Chiropractic Reporton 2024 Chiropractic Report Normal [facility] CNPNon 04-01-2025 CNPN Telephone (NETXMN) ---- TORI GRAY ([id number]) 1980 F Date Time Provider Department 04/01/25 AMANDA ARTEAGA [facility] During your visit today, we recorded the following information about you: Nakia Caraballo RN 04/01/2025 12:47 PM Signed Botox approved until 11/03/25. Patient and scheduling made aware. She is a patient of [facility] but due to her being out on [...] tablet by mouth once daily. - Ipratropium Wynne (ATROVENT) 21 mcg (0.03 %) nasal spray [...] Each by INTRAUTERINE route as directed. - Natoma-3 Fatty Acids (FISH OIL) 500 mg cap Take 1 capsule by mouth once daily. - blood sugar diagnostic (BLOOD GLUCOSE TEST) test strip Test blood sugar(s) 1 times daily. Dx: Type 2 DM - Controlled E11.9 Insulin: Yes - Lancets lancets Test blood sugar(s) 1 times daily. Dx: Type 2 DM - Controlled E11.9 Insulin: No - Adzsumiw-Zx-Sji-Fe- FA tab Take 1 tablet by mouth [...] 05/06/2009 01/23/2010 Routine general medical examination at [facility]*01/23/2010 12/06/2012 Class: Chronic Routine gynecological examination [Z01.419] 01/23/2010 02/22/2014 Class: Chronic Morbid Obesity [E66.01] 01/23/2010 Lumbar Disc Disorder [M51.9] 02/16/2010 Routine general medical examination at [facility]*12/06/2012 02/22/2014 Anxiety [F41.9] 06/07/2014 Type 2 [...] mellitus [Z86.39] (more content not included)... Normal [facility] Chiropractic Reporton 2024 [facility] Visit Report Normal [facility] CNPNon 03-19-2025 CNPN Telephone (NENMMN) ---- TORI GRAY ([id number]) 1980 F Date Time Provider Department 03/19/25 [facility]A [facility] During your visit today, we [...] tablet by mouth once daily. - Ipratropium Wynne (ATROVENT) 21 mcg (0.03 %) nasal spray [...] Each by INTRAUTERINE route as directed. - Natoma-3 Fatty Acids (FISH OIL) 500 mg cap Take 1 capsule by mouth once daily. - blood sugar diagnostic (BLOOD GLUCOSE TEST) test strip Test blood sugar(s) 1 times daily. Dx: Type 2 DM - Controlled E11.9 Insulin: Yes - Lancets lancets Test blood sugar(s) 1 times daily. Dx: Type 2 DM - Controlled E11.9 Insulin: No - Ynhuwzrl-To-Dnz-Fe- FA tab Take 1 tablet by mouth [...] 05/06/2009 01/23/2010 Routine general medical examination at [facility]*01/23/2010 12/06/2012 Class: Chronic Routine gynecological examination [Z01.419] 01/23/2010 02/22/2014 Class: Chronic Morbid Obesity [E66.01] 01/23/2010 Lumbar Disc Disorder [M51.9] 02/16/2010 Routine general medical examination at [facility]*12/06/2012 02/22/2014 Anxiety [F41.9] 06/07/2014 Type 2 [...] 09/04/2022 11 (more content not included)... Normal [facility] Shoulder min 2 Viewson 03-11 Shoulder min 2 Views Normal [facility] Chiropractic Reporton 2024 Chiropractic Report Normal [facility] CNPNon 03-04-2025 CNPN Telephone (NEUSTF) ---- TORI GRAY ([id number]) 1980 F Date Time Provider Department 03/04/25 [...] tablet by mouth once daily. - Ipratropium Wynne (ATROVENT) 21 mcg (0.03 %) nasal spray [...] Each by INTRAUTERINE route as directed. - Natoma-3 Fatty Acids (FISH OIL) 500 mg cap Take 1 capsule by mouth once daily. - blood sugar diagnostic (BLOOD GLUCOSE TEST) test strip Test blood sugar(s) 1 times daily. Dx: Type 2 DM - Controlled E11.9 Insulin: Yes - Lancets lancets Test blood sugar(s) 1 times daily. Dx: Type 2 DM - Controlled E11.9 Insulin: No - Kimonoid-Dl-Vya-Fe- FA tab Take 1 tablet by mouth [...] 05/06/2009 01/23/2010 Routine general medical examination at [facility]*01/23/2010 12/06/2012 Class: Chronic Routine gynecological examination [Z01.419] 01/23/2010 02/22/2014 Class: Chronic Morbid Obesity [E66.01] 01/23/2010 Lumbar Disc Disorder [M51.9] 02/16/2010 Routine general medical examination at [facility]*12/06/2012 02/22/2014 Anxiety [F41.9] 06/07/2014 Type 2 [...] headache [G43. (more content not included)... [facility] (HOMERO) ---- TORI GRAY ([id number]) 1980 F Date Time Provider Department 02/24/25 [...] tablet by mouth once daily. - Ipratropium Wynne (ATROVENT) 21 mcg (0.03 %) nasal spray [...] Each by INTRAUTERINE route as directed. - Natoma-3 Fatty Acids (FISH OIL) 500 mg cap Take 1 capsule by mouth once daily. - blood sugar diagnostic (BLOOD GLUCOSE TEST) test strip Test blood sugar(s) 1 times daily. Dx: Type 2 DM - Controlled E11.9 Insulin: Yes - Lancets lancets Test blood sugar(s) 1 times daily. Dx: Type 2 DM - Controlled E11.9 Insulin: No - Ukqddznc-Fd-Rws-Fe- FA tab Take 1 tablet by mouth [...] 05/06/2009 01/23/2010 Routine general medical examination at [facility]*01/23/2010 12/06/2012 Class: Chronic Routine gynecological examination [Z01.419] 01/23/2010 02/22/2014 Class: Chronic Morbid Obesity [E66.01] 01/23/2010 Lumbar Disc Disorder [M51.9] 02/16/2010 Routine general medical examination at [facility]*12/06/2012 02/22/2014 Anxiety [F41.9] 06/07/2014 Type 2 [...] 09/04/2022 Low (more content not included)... Normal [facility] Inital Evaluation (1) - PTon 02-08-2025 Inital Evaluation (1) - PT Normal [facility] Chiropractic Reporton 2024 [facility]ropract[facility] Anion gap in Serum or Plasma Ordered By: Ivette Grimes on 01-28-2025 Anion gap [Moles/Vol] 11 mmol/L 5-15 [facility] BUN/creatinine ratioOrdered By: Ivette Grimes on 01-28-2025 Urea nitrogen/Creatinine [Mass ratio] 18.5 mg/mg 10-20 [facility] Basic Metabolic Profile (BMP )on 01-28-2025 BUN/CRE 18.5 RATIO Normal -20 [facility] Comment on above: Performed By: #### L 500.2500, L501.9985 ####[facility] [address] [place], [address] Calcium [Mass/Vol] 9.0 mg/dL Normal 7.6-11.0 [facility] Comment on above: Performed By: #### L 500.2500, L501.9985 ####[facility] [address] [place], [address] Chloride [Moles/Vol] 105 mmol/L Normal 98-108 [facility] Comment on above: Performed By: #### L 500.2500, [id number] ####[facility] [address] [place], [address] CO2 [Moles/Vol] 21.2 mmol/L Normal 21.0-32.0 [facility] Comment on above: Performed By: #### L 500.2500, [id number] ####[facility] [address] [place], [address] Creatinine [Mass/Vol] 0.77 mg/dL Normal 0.70-1.20 [facility] Comment on above: Performed By: #### L 500.2500, [id number] ####[facility] [address] [place], [address] GAP 11 Normal 5-15 [facility] Comment on above: Performed By: #### L 500.2500, [id number] ####[facility] [address] [place], [address] GFR/1.73 sq M.predicted among non-blacks MDRD (S/P/Bld) [Vol rate/Area] 98 mL/min/{1.73_m2} Normal >60 [facility] Comment on above: Result Comment: mL/m in/1.73m2 CKD-EPI Creatinine Equation (2020) Performed By: #### L 500.2500, [id number] ####[facility] [address] [place], [address] Glucose [Mass/Vol] 185 mg/dL High 70-99 [facility] Comment on above: Performed By: #### L 500.2500, [id number] ####[facility] [address] [place], [address] Potassium [Moles/Vol] 4.2 mmol/L Normal 3.3-5.1 [facility] Comment on above: Result Comment: Hemo lysis present, Results??could be affected.?? Performed By: #### L 500.2500, [id number] ####[facility] [address] [place], [address] Sodium [Moles/Vol] 137 mmol/L Normal 133-145 [facility] Comment on above: Performed By: #### L 500.2500, [id number] ####[facility] [address] [place], [address] Urea nitrogen [Mass/Vol] 14 mg/dL Normal 4-19 [facility] Comment on above: Performed By: #### L 500.2500, [id number] ####[facility] [address] [place], [address] CNPIliana 01-28-2025 GABRIELAN Telephone (FAMPWS) ---- TORI GRAY ([id number]) 1980 F Date Time Provider Department 01/28/25 IVETTE GRIMESWS During your visit today, we recorded the following information about you: Krystle Barnett RN 01/28/2025 4:54 PM Signed Prior Authorization Documentation Prior authorization requested for the following medication: Medication: Ozempic 1 mg (all though PA done in Aug 2024 and approved until Aug 2025 this needs PA due to dose change). Provider: [employer] Name: [facility] [employer] Phone number: [phone] Patient ID number: [id number] Pharmacy Name: [facility] Telephone number: [phone] Evon Philippe LPN 01/28/2025 4:56 PM Signed Electronic PA requested. Evon Philippe LPN 01/28/2025 4:58 PM Signed Unable to complete electronically. Will try on covermymeds Evon Philippe LPN 01/29/2025 9:07 AM Signed [employer] RESPONSE. [employer] does not handle this review. Please visit [employer] to start a prior authorization or fax information to [phone]. Please include all supporting chart notes. You may contact [employer] at [phone]. WILL FAX PA REQUEST TO NUMBER PROVIDED. [...] her know when it is ready for peanut picker. Allergies As of Date: 01/28/2025 Noted [...] tablet by mouth once daily. - Ipratropium Wynne (ATROVENT) 21 mcg (0.03 %) nasal spray [...] Each by INTRAUTERINE route as directed. - Natoma-3 Fatty Acids (FISH OIL) 500 mg cap Take 1 capsule by mouth once daily. - blood sugar diagnostic (BLOOD GLUCOSE TEST) test strip Test blood sugar(s) 1 times daily. Dx: Type 2 DM - Controlled E11.9 Insulin: Yes - Lancets lancets Test blood sugar(s) 1 times daily. Dx: Type 2 DM - Controlled E11.9 Insulin: No - Efzklrnx-Qo-Sfm-Fe- FA tab Take 1 tablet by mouth [...] DERMATOFIBROMA///BE N (more content not included)... [facility] TORI GRAY ([id number]) 1980 F Date Time Provider Department 01/28/25 IVETTE GRIMES [facility] During your visit today, we recorded [...] tablet by mouth once daily. - Ipratropium Wynne (ATROVENT) 21 mcg (0.03 %) nasal spray [...] Each by INTRAUTERINE route as directed. - Natoma-3 Fatty Acids (FISH OIL) 500 mg cap Take 1 capsule by mouth once daily. - blood sugar diagnostic (BLOOD GLUCOSE TEST) test strip Test blood sugar(s) 1 times daily. Dx: Type 2 DM - Controlled E11.9 Insulin: Yes - Lancets lancets Test blood sugar(s) 1 times daily. Dx: Type 2 DM - Controlled E11.9 Insulin: No - Horqgpwh-Py-Opg-Fe- FA tab Take 1 tablet by mouth [...] general medical examination at [facility]*01/23/2010 12/06/2012 Class: Chronic Routine gynecological examination [Z01.419] 01/23/2010 02/22/2014 Class: Chronic Morbid Obesity [E66.01] 01/23/2010 Lumbar Disc Disorder [M51.9] 02/16/2010 Routine general medical examination at [facility]*12/06/2012 02/22/2014 Anxiety [F41.9] 06/07/2014 Type 2 [...] R19.7] 11/22/202109/04 (more content not included)... Normal [facility] Carbon dioxide, total [Moles /volume] in Central venous bloodOrdered By: Ivette Grimes on 01-28-2025 CO2 [Moles/Vol] 21.2 mmol/L 21.0-32.0 [facility] Chloride assayOrdered By: Regina Grimes on 01-28-2025 Chloride [Moles/Vol] 105 mmol/L 98-108 [facility] GFR/1.73 sq M.predicted jamari g non-blacks MDRD (S/P/Bld) [Vol rate/Area]Ordered By: Ivette Grimes on 01-28-2025 Estimated GFR (MDRD) Non-Af Amer 98 >60 [facility] Comment on above: mL/min/1.73m2 CKD-EP I Creatinine Equation (2020) Glomerular filtration rate ( GFR) estimation/1.73 sq m using serum, plasma, or whole bOrdered By: Ivette Grimes on 01-28-2025 GFR/1.73 sq M.predicted among non-blacks MDRD (S/P/Bld) [Vol rate/Area] 98 mL/min/{1.73_m2} >60 [facility] Comment on above: mL/min/1.73m2 CKD-EP I Creatinine Equation (2020) HBA1C (OUTSIDE)on 01-28-2025 [facility] Hemoglobin A1c percentageon 01-28-2025 HbA1c (Bld) [Mass fraction] 6.6 % Normal <=5.6 [facility] Comment on above: Performed By: #### L 500.2500, L501.9985 ####[facility] [address] [place], [address] Potassium (Unsp spec) [Mass/ Vol]Ordered By: Ivette Grimes on 01-28-2025 Potassium [Moles/Vol] 4.2 mmol/L 3.3-5.1 [facility] Comment on above: Hemolysis present, R esults could be affected. Potassium measurement (mass/ volume)Ordered By: Ivette Grimes on 01-28-2025 Potassium (Unsp spec) [Mass/Vol] 4.2 mmol/L 3.3-5.1 [facility] Comment on above: Hemolysis present, R esults could be affected. Serum creatinine measurement (mass/volume)Ordered By: Ivette Grimes on 01-28-2025 Creatinine [Mass/Vol] 0.77 mg/dL 0.70-1.20 [facility] Serum glucose measurement (m ass/volume)Ordered By: Ivette Grimes on 01-28-2025 Glucose [Mass/Vol] 185 mg/dL High 70-99 [facility] Serum or plasma calcium sharron urement (mass/volume)Ordered By: Ivette Grimes on 01-28-2025 Calcium [Mass/Vol] 9.0 mg/dL 7.6-11.0 [facility] Serum or plasma urea nitroge n measurement (mass/volume)Ordered By: Ivette Grimes on 01-28-2025 Urea nitrogen [Mass/Vol] 14 mg/dL 4-19 [facility] Sodium levelOrdered By: Reji harem Sydney on 01-28-2025 Sodium [Moles/Vol] 137 mmol/L 133-145 [facility] CNOVon 01-22-2025 CNOV Office Visit (FAMPWS) ---- TORI GRAY ([id number]) 1980 F Date Time Provider Department 01/22/25 3:40 PM [facility] During your visit today, we recorded the [...] 1 tablet by mouth once daily. Ipratropium Wynne (ATROVENT) 21 mcg (0.03 %) nasal spray [...] 1 Each by INTRAUTERINE route as directed. Natoma-3 Fatty Acids (FISH OIL) 500 mg cap Take 1 capsule by mouth once daily. blood sugar diagnostic (BLOOD GLUCOSE TEST) test strip Test blood sugar(s) 1 times daily. Dx: Type 2 DM - Controlled E11.9 Insulin: Yes Lancets lancets Test blood sugar(s) 1 times daily. Dx: Type 2 DM - Controlled E11.9 Insulin: No Lczvorqi-Dm-Sqe-Fe- FA tab Take 1 tablet by mouth [...] Age of Onset Alcohol/Drug Mother Heart Father [place] Cancer Father PANCREATIC CANCER Diabetes Father Coronary [...] Controlled ( (more content not included)... Normal [facility] Hany 12-21-2024 GABRIELAN Telephone (FAMPWS) ---- TORI GRAY ([id number]) 1980 F Date Time Provider Department 12/21/24 [...] tablet by mouth once daily. - Ipratropium Wynne (ATROVENT) 21 mcg (0.03 %) nasal spray [...] Each by INTRAUTERINE route as directed. - Natoma-3 Fatty Acids (FISH OIL) 500 mg cap Take 1 capsule by mouth once daily. - blood sugar diagnostic (BLOOD GLUCOSE TEST) test strip Test blood sugar(s) 1 times daily. Dx: Type 2 DM - Controlled E11.9 Insulin: Yes - Lancets lancets Test blood sugar(s) 1 times daily. Dx: Type 2 DM - Controlled E11.9 Insulin: No - Cmlocymm-Ez-Hit-Fe- FA tab Take 1 tablet by mouth [...] general medical examination at [facility]*01/23/2010 12/06/2012 Class: Chronic Routine gynecological examination [Z01.419] 01/23/2010 02/22/2014 Class: Chronic Morbid Obesity [E66.01] 01/23/2010 Lumbar Disc Disorder [M51.9] 02/16/2010 Routine general medical examination at [facility]*12/06/2012 02/22/2014 Anxiety [F41.9] 06/07/2014 Type 2 diabetes mellitus with microalbuminuria,*0 07/04/2018 Fatty liver [K76.0] 07/21/2018 08/05/2024 LETITIA (obstructive sleep apnea) [G47.33] 07/21/2018 Microalbuminuria [R80.9] 09/30/2018 09/04/2022 Obesity, Class III, BMI >= 40 [E66.01] 11/26/2019 09/04/2022 (more content not included)... Normal [facility] Albumin to globulin ratioOrd ered By: Jenni Jain on 12-11-2024 Albumin/Globulin [Mass ratio] 0.8 {ratio} Low 0.9-2.4 [facility] Bilirubin, totalOrdered By: Jenni Jain on 12-11-2024 Bilirubin [Mass/Vol] 0.80 mg/dL 0.20-1.00 [facility] Comment on above: For patients on eltr ombopag therapy, use of Dimension Pollok TBIL is not recommended. Blood urea nitrogen (BUN)/cr eatinine ratioOrdered By: Jenni Jain on 12-11-2024 Urea nitrogen/Creatinine [Mass ratio] 11.5 mg/mg 10-20 [facility] CNOVon 12-11-2024 CNOV Office Visit (FAMWS) ---- TORI GRAY ([id number]) 1980 F Date Time Provider Department 12/11/24 11:00 AM JENNI JAIN [facility] During your visit today, we recorded the following information about you: Temperature Pulse Respiration Blood pressure 97.8 degrees 72/minute 16/minute 138/74 Weight 125.7 kg Jenni Jain APRN.[employer]ER 12/11/2024 12:26 PM Signed This is a [...] LAPAROSCOPY SURG CHOLECYSTECTOMY 2006 Cholecystectomy, lap (Rowena Monte) PAST SURGICAL HISTORY OF 2019 stent into [...] 1 tablet by mouth once daily. Ipratropium Wynne (ATROVENT) 21 mcg (0.03 %) nasal spray [...] 1 Each by INTRAUTERINE route as directed. Natoma-3 Fatty Acids (FISH OIL) 500 mg cap Take 1 capsule by mouth once daily. blood sugar diagnostic (BLOOD GLUCOSE TEST) test strip Test blood sugar(s) 1 times daily. Dx: Type 2 DM - Controlled E11.9 Insulin: Yes Lancets lancets Test blood sugar(s) 1 times daily. Dx: Type 2 DM - Controlled E11.9 Insulin: No Xnapsipj-Yr-Xdb-Fe- FA tab Take 1 tablet by mouth once daily. No current facility-administer ed medications for this visit. FAMILY HISTORY Problem Relation Age of Onset Alcohol/Drug Mother Heart Father [place] Cancer Father PANCREATIC CANCER Diabetes Father Coronary [...] NECK: Negat (more content not included)... [facility] Tele[facility] (JAIMEWS) ---- TORI GRAY ([id number]) 1980 F Date Time Provider Department 12/11/24 IVETTE GRIMES During your visit today, we recorded the following information about you: Brittney Meredith RN 12/11/2024 8:23 AM Signed Patient calling to make appt for evaluation of respiratory sx's that began approx 4 weeks ago. Pt states she feels she may have bronchitis or pneumonia. States she was at [facility] ER last month due to dizziness, [...] tablet by mouth once daily. - Ipratropium Wynne (ATROVENT) 21 mcg (0.03 %) nasal spray [...] Each by INTRAUTERINE route as directed. - Natoma-3 Fatty Acids (FISH OIL) 500 mg cap Take 1 capsule by mouth once daily. - blood sugar diagnostic (BLOOD GLUCOSE TEST) test strip Test blood sugar(s) 1 times daily. Dx: Type 2 DM - Controlled E11.9 Insulin: Yes - Lancets lancets Test blood sugar(s) 1 times daily. Dx: Type 2 DM - Controlled E11.9 Insulin: No - Jpnwzfcl-Xi-Zbg-Fe- FA tab Take 1 tablet by mouth [...] 05/06/2009 01/23/2010 Routine general medical examination at [facility]*01/23/2010 12/06/2012 Class: Chronic Routine gynecological examination [Z01.419] 01/23/2010 02/22/2014 Class: Chronic Morbid Obesity [E66.01] 01/23/2010 Lumbar Disc Disorder [M51.9] 02/16/2010 Routine general medical examination at [facility]*12/06/2012 02/22/2014 Anxiety [F41.9] 06/07/2014 Type 2 diabetes mellitus with microalbuminuria,*0 07/04/2018 Fatty liver [K76.0] 07/21/2018 08/05/20 (more content not included)... [facility] ---- TORI GRAY ([id number]) 1980 F Date Time Provider Department 12/11/24 JENNI JAIN [facility] During your visit today, we recorded the following information about you: Jenni Jain APRN.[facility] 12/11/2024 2:18 PM Signed Can you please call the patient and let her know that I am still waiting for x-ray results from [facility]. I went ahead and sent in [...] tablet by mouth once daily. - Ipratropium Wynne (ATROVENT) 21 mcg (0.03 %) nasal spray [...] Each by INTRAUTERINE route as directed. - Natoma-3 Fatty Acids (FISH OIL) 500 mg cap Take 1 capsule by mouth once daily. - blood sugar diagnostic (BLOOD GLUCOSE TEST) test strip Test blood sugar(s) 1 times daily. Dx: Type 2 DM - Controlled E11.9 Insulin: Yes - Lancets lancets Test blood sugar(s) 1 times daily. Dx: Type 2 DM - Controlled E11.9 Insulin: No - Sznnekjd-Ly-Icg-Fe- FA tab Take 1 tablet by mouth [...] SACROILIITIS [ (more content not included)... Normal [facility] Carbon dioxide measurementOr dered By: Jenni Jain on 12-11-2024 CO2 [Moles/Vol] 23.0 mmol/L 21.0-32.0 [facility] Chest PA and Lateralon 12-11 Chest PA and Lateral Normal [facility] Chloride measurementOrdered By: Jenni Jain on 12-11-2024 Chloride [Moles/Vol] 107 mmol/L 98-107 [facility] Comprehensive Metabolic Prof ilon 12-11-2024 Albumin [Mass/Vol] 3.7 g/dL Normal 3.2-5.0 [facility] Comment on above: Performed By: #### L 500.4050 ####[facility] [address] [place], [place], [id number] Albumin/Globulin [Mass ratio] 0.8 {ratio} Low 0.9-2.4 [facility] Comment on above: Performed By: #### L [id number] ####[facility] [address] [place], [address] ALK P 84 U/L Normal 45-117 [facility] Comment on above: Performed By: #### L [id number] ####[facility] [address] [place], [address] ALT [Catalytic activity/Vol] 53 U/L Normal 13-56 [facility] Comment on above: Performed By: #### L [id number] ####[facility] [address] [place], [address] AST [Catalytic activity/Vol] 40 U/L High 15-37 [facility] Comment on above: Performed By: #### L 500.4050 ####[facility] [address] [place], [address] Bilirubin [Mass/Vol] 0.80 mg/dL Normal 0.20-1.00 [facility] Comment on above: Result Comment: For patients on eltrombopag therapy, use of Dimension Pollok TBIL is not recommended. Performed By: #### L 500.4050 ####[facility] [address] [place], [address] BUN/CRE 11.5 RATIO Normal 10-20 [facility] Comment on above: Performed By: #### L [id number] ####[facility] [address] [place], [address] CA,Total 8.8 mg/dL Normal 8.5-10.1 [facility] Comment on above: Performed By: #### L 500.4050 ####[facility] [address] [place], [address] Chloride [Moles/Vol] 107 mmol/L Normal 98-107 [facility] Comment on above: Performed By: #### L 500.4050 ####[facility] [address] [place], [address] CO2 [Moles/Vol] 23.0 mmol/L Normal 21.0-32.0 [facility] Comment on above: Performed By: #### L 500.4050 ####[facility] [address] [place], [address] Creatinine [Mass/Vol] 0.78 mg/dL Normal 0.55-1.02 [facility] Comment on above: Result Comment: The validity of the calculated GFR GFRAA in patients over70 years has not been determined. Clinical correlation isessential. Performed By: #### L 500.4050 ####[facility] [address] [place], [address] EST GFR - AA 104 mL/min Normal >60 [facility] Comment on above: Result Comment: Afri can Micronesian GFR Calc Performed By: #### L 500.4050 ####[facility] [address] [place], [address] GAP 7 Normal 5-15 [facility] Comment on above: Performed By: #### L 500.4050 ####[facility] [address] [place], [address] GFR/1.73 sq M.predicted among non-blacks MDRD (S/P/Bld) [Vol rate/Area] 86 mL/min/{1.73_m2} Normal >60 [facility] Comment on above: Result Comment: Non- GFR Calc Performed By: #### L [id number] ####[facility] [address] [place], [address] Globulin (S) [Mass/Vol] 4.5 g/dL High 2.2-4.2 [facility] Comment on above: Performed By: #### L 500.4050 ####[facility] [address] [place], [address] Glucose [Mass/Vol] 109 mg/dL High 74-106 [facility] Comment on above: Result Comment: Fast ing Glucose result from 100 to 125 mg/dLsuggests IMPAIRED HOMEOSTASIS per A.D.A. criteria. Performed By: #### L 500.4050 ####[facility] [address] [place], [address] Potassium [Moles/Vol] 3.9 mmol/L Normal 3.5-5.1 [facility] Comment on above: Performed By: #### L 500.4050 ####[facility] [address] [place], [address] Sodium [Moles/Vol] 137 mmol/L Normal 136-145 [facility] Comment on above: Performed By: #### L 500.4050 ####[facility] [address] [place], [address] T PROT 8.2 g/dL Normal 6.4-8.2 [facility] Comment on above: Performed By: #### L 500.4050 ####[facility] [address] [place], [address] Urea nitrogen [Mass/Vol] 9 mg/dL Normal 7-18 [facility] Comment on above: Performed By: #### L 500.4050 ####[facility] [address] [place], [address] Estimated glomerular filtrat ion rate (GFR) AmericanOrdered By: Jenni Jain on 12-11-2024 Estimated GFR (MDRD) Amer 104 mL/min >60 [facility] Comment on above: GFR Calc Glomerular filtration rate ( GFR) estimationOrdered By: Jenni Jain on 12-11-2024 Estimated GFR (MDRD) Non-Af Amer 86 mL/min >60 [facility] Comment on above: Non- GFR Calc GFR/1.73 sq M.predicted among non-blacks MDRD (S/P/Bld) [Vol rate/Area] 86 mL/min/{1.73_m2} >60 [facility] Comment on above: Non- GFR Calc Glucose measurementOrdered B y: Jenni Jain on 12-11-2024 Glucose [Mass/Vol] 109 mg/dL High 74-106 [facility] Comment on above: Fasting Glucose resu lt from 100 to 125 mg/dL suggests IMPAIRED HOMEOSTASIS per A.D.A. criteria. Laboratory - Chemistry and C hemistry - challengeOrdered By: Jenni Jain on 12-11-2024 AST [Catalytic activity/Vol] 40 U/L High 15-37 [facility] Potassium measurementOrdered By: Jenni Jain on 12-11-2024 Potassium [Moles/Vol] 3.9 mmol/L 3.5-5.1 [facility] Serum anion gap measurementO rdered By: Jenni Jain on 12-11-2024 Anion gap [Moles/Vol] 7 mmol/L 5-15 [facility] Serum globulin measurementOr dered By: Jenni Jain on 12-11-2024 Globulin (S) [Mass/Vol] 4.5 g/dL High 2.2-4.2 [facility] Serum or plasma alanine arizmendi otransferase (ALT) measurementOrdered By: Jenni Jain on 12-11-2024 ALT [Catalytic activity/Vol] 53 U/L 13-56 [facility] Serum or plasma albumin sharron urement (mass/volume)Ordered By: Jenni Jain on 12-11-2024 Albumin [Mass/Vol] 3.7 g/dL 3.2-5.0 [facility] Serum or plasma alkaline toyin sphatase measurementOrdered By: Jenni Jain on 12-11-2024 ALP [Catalytic activity/Vol] 84 U/L 45-117 [facility] Serum or plasma calcium sharron urement (mass/volume)Ordered By: Jenni Jain on 12-11-2024 Calcium [Mass/Vol] 8.8 mg/dL 8.5-10.1 [facility] Serum or plasma creatinine m easurement (mass/volume)Ordered By: Jenni Jain on 12-11-2024 Creatinine [Mass/Vol] 0.78 mg/dL 0.55-1.02 [facility] Comment on above: The validity of the calculated GFR & GFRAA in patients over 70 years has not been determined. Clinical correlation is essential. Serum or plasma urea nitroge n measurement (mass/volume)Ordered By: Jenni Jain on 12-11-2024 Urea nitrogen [Mass/Vol] 9 mg/dL 7-18 [facility] Sodium levelOrdered By: Ricco aJin on 12-11-2024 Sodium [Moles/Vol] 137 mmol/L 136-145 [facility] Total proteinOrdered By: John Jain on 12-11-2024 Protein [Mass/Vol] 8.2 g/dL 6.4-8.2 [facility] Urine Cultureon 11-12-2024 [facility] Mixed Gram Pos Gram Neg Org [place] Count 11,000-25,000 [facility] Mixed contaminants. Submit a new specimen if indicated. Normal [facility] Comment on above: Performed By: #### M 100.2200 ####[facility] [address] [place], [address] 12 Lead EKGon 11-11-2024 12 Lead EKG Normal [facility] Absolute neutrophil countOrd ered By: Buddy Hall on 11-11-2024 Neutrophils (Bld) [#/Vol] 6.5 10*3/uL 2.0-7.7 [facility] Albumin to globulin ratioOrd ered By: Buddy Hall on 11-11-2024 Albumin/Globulin [Mass ratio] 0.6 {ratio} Low 0.9-2.4 [facility] Bacteria LM.HPF (Urine sed) [#/Area]Ordered By: Buddy Hall on 11-11-2024 Urine Bacteria RARE /hpf None Seen [facility] Basophil percentageOrdered B y: Buddy Hall on 11-11-2024 Basophils/100 WBC (Bld) 0.4 % 0-1 [facility] Bilirubin Test strip Ql (U)O rdered By: Buddy Hall on 11-11-2024 Bilirubin Ql (U) Negative Negative [facility] Bilirubin, totalOrdered By: Buddy Hall on 11-11-2024 Bilirubin [Mass/Vol] 0.90 mg/dL 0.20-1.00 [facility] Comment on above: For patients on eltr ombopag therapy, use of Dimension Pollok TBIL is not recommended. Blood urea nitrogen (BUN)/cr eatinine ratioOrdered By: Buddy Hall on 11-11-2024 Urea nitrogen/Creatinine [Mass ratio] 9.8 mg/mg Low 10-20 [facility] CBC W/Diff, Automatedon Absolute Lymph 0.72 X10 3/uL Low 0.83-4.51 [facility] Comment on above: Performed By: #### L 100.0100, L500.4050 ####[facility] [address] [place], [address] Absolute Neut 6.5 X10 3/uL Normal 2.0-7.7 [facility] Comment on above: Performed By: #### L 100.0100, L500.4050 ####[facility] [address] [place], [address] Basophils/100 WBC (Bld) 0.4 % Normal 0-1 [facility] Comment on above: Performed By: #### L 100.0100, L500.4050 ####[facility] [address] [place], [address] Eosinophils/100 WBC (Bld) 1.2 % Normal 0-5 [facility] Comment on above: Performed By: #### L 100.0100, L500.4050 ####[facility] [address] [place], [address] Erythrocyte distribution width (RBC) [Ratio] 13.7 % Normal 11.6-14.6 [facility] Comment on above: Performed By: #### L 100.0100, L500.4050 ####[facility] [address] [place], [address] Hematocrit (Bld) [Volume fraction] 33.1 % Low 37-47 [facility] Comment on above: Performed By: #### L 100.0100, L500.4050 ####[facility] [address] [place], [address] Hemoglobin (Bld) [Mass/Vol] 11.4 g/dL Low 12.0-15.0 [facility] Comment on above: Performed By: #### L 100.0100, L500.4050 ####[facility] [address] [place], [address] IG% 1.200 High 0.0-0.9 [facility] Comment on above: Result Comment: IG% - Immature Granulocytes (promyelocytes, myelocytes andmetamyelocytes) > 1% indicates that a LEFT SHIFT is Present. Performed By: #### L 100.0100, L500.4050 ####[facility] [address] [place], [address] Lymphocytes/100 WBC (Bld) 9.2 % Low 19-41 [facility] Comment on above: Performed By: #### L 100.0100, L500.4050 ####[facility] [address] [place], [address] MCH (RBC) [Entitic mass] 31.8 pg Normal 27.0-32.0 [facility] Comment on above: Performed By: #### L 100.0100, L500.4050 ####[facility] [address] [place], [address] MCHC (RBC) [Mass/Vol] 34.4 g/dL Normal 32-36 [facility] Comment on above: Performed By: #### L 100.0100, L500.4050 ####[facility] [address] [place], [address] MCV (RBC) [Entitic vol] 92.5 fL Normal 81-99 [facility] Comment on above: Performed By: #### L 100.0100, L500.4050 ####[facility] [address] [place], [address] Monocytes/100 WBC (Bld) 4.2 % Normal 0-10 [facility] Comment on above: Performed By: #### L 100.0100, L500.4050 ####[facility] [address] [place], [address] Neutrophils/100 WBC (Bld) 83.8 % High 47-70 [facility] Comment on above: Performed By: #### L 100.0100, L500.4050 ####[facility] [address] [place], [address] Nucleated RBC (Bld) [#/Vol] 0 10*3/uL Normal 0-5 [facility] Comment on above: Performed By: #### L 100.0100, L500.4050 ####[facility] [address] [place], [address] Platelet mean volume (Bld) [Entitic vol] 9.6 fL Normal 6.2-12.0 [facility] Comment on above: Performed By: #### L 100.0100, L500.4050 ####[facility] [address] [place], [address] Platelets (Bld) [#/Vol] 108 10*3/uL Low 150-450 [facility] Comment on above: Performed By: #### L 100.0100, L500.4050 ####[facility] [address] [place], [address] RBC (Bld) [#/Vol] 3.58 10*6/uL Low 4.2-5.4 [facility] Comment on above: Performed By: #### L 100.0100, L500.4050 ####[facility] [address] [place], [address] RDW SD 46.7 fl High 35.1-43.9 [facility] Comment on above: Performed By: #### L 100.0100, L500.4050 ####[facility] [address] [place], [address] WBC (Bld) [#/Vol] 7.8 10*3/uL Normal 4.4-11.0 [facility] Comment on above: Performed By: #### L 100.0100, L500.4050 ####[facility] [address] [place], [address] Carbon dioxide measurementOr dered By: Buddy Hall on 11-11-2024 CO2 [Moles/Vol] 28.0 mmol/L 21.0-32.0 [facility] Chloride measurementOrdered By: Buddy Hall on 11-11-2024 Chloride [Moles/Vol] 102 mmol/L 98-107 [facility] Comprehensive Metabolic Prof ilon 11-11-2024 Albumin [Mass/Vol] 2.6 g/dL Low 3.2-5.0 [facility] Comment on above: Performed By: #### L 100.0100, L500.4050 ####[facility] [address] [place], [address] Albumin/Globulin [Mass ratio] 0.6 {ratio} Low 0.9-2.4 [facility] Comment on above: Performed By: #### L 100.0100, L500.4050 ####[facility] [address] [place], [address] ALK P 79 U/L Normal 45-117 [facility] Comment on above: Performed By: #### L 100.0100, L500.4050 ####[facility] [address] [place], [address] ALT [Catalytic activity/Vol] 29 U/L Normal 13-56 [facility] Comment on above: Performed By: #### L 100.0100, L500.4050 ####[facility] [address] [place], [address] AST [Catalytic activity/Vol] 16 U/L Normal 15-37 [facility] Comment on above: Performed By: #### L 100.0100, L500.4050 ####[facility] [address] [place], [address] Bilirubin [Mass/Vol] 0.90 mg/dL Normal 0.20-1.00 [facility] Comment on above: Result Comment: For patients on eltrombopag therapy, use of Dimension [place] TBIL is not recommended. Performed By: #### L 100.0100, L500.4050 ####[facility] [address] [place], [address] BUN/CRE 9.8 RATIO Low 10-20 [facility] Comment on above: Performed By: #### L 100.0100, L500.4050 ####[facility] [address] [place], [address] CA,Total 8.2 mg/dL Low 8.5-10.1 [facility] Comment on above: Performed By: #### L 100.0100, L500.4050 ####[facility] [address] [place], [address] Chloride [Moles/Vol] 102 mmol/L Normal 98-107 [facility] Comment on above: Performed By: #### L 100.0100, L500.4050 ####[facility] [address] [place], [address] CO2 [Moles/Vol] 28.0 mmol/L Normal 21.0-32.0 [facility] Comment on above: Performed By: #### L 100.0100, L500.4050 ####[facility] [address] [place], [address] Creatinine [Mass/Vol] 1.12 mg/dL High 0.55-1.02 [facility] Comment on above: Result Comment: The validity of the calculated GFR GFRAA in patients over70 years has not been determined. Clinical correlation isessential. Performed By: #### L 100.0100, L500.4050 ####[facility] [address] [place], [address] ECRCL 92.31 ml/min Normal [facility] Comment on above: Performed By: #### L 100.0100, L500.4050 ####[facility] [address] [place], [address] EST GFR - AA 69 mL/min Normal >60 [facility] Comment on above: Result Comment: Afri can Micronesian GFR Calc Performed By: #### L 100.0100, L500.4050 ####[facility] [address] [place], [address] GAP 6 Normal 5-15 [facility] Comment on above: Performed By: #### L 100.0100, L500.4050 ####[facility] [address] [place], [address] GFR/1.73 sq M.predicted among non-blacks MDRD (S/P/Bld) [Vol rate/Area] 57 mL/min/{1.73_m2} Low >60 [facility] Comment on above: Result Comment: Non- GFR Calc Performed By: #### L 100.0100, L500.4050 ####[facility] [address] [place], [address] Globulin (S) [Mass/Vol] 4.0 g/dL Normal 2.2-4.2 [facility] Comment on above: Performed By: #### L 100.0100, L500.4050 ####[facility] [address] [place], [address] Glucose [Mass/Vol] 233 mg/dL High 74-106 [facility] Comment on above: Result Comment: Gluc ose result greater than or equal to 200 mg/dLsuggests DIABETES MELLITUS per A.D.A. criteria. Performed By: #### L 100.0100, L500.4050 ####[facility] [address] [place], [address] Potassium [Moles/Vol] 2.6 mmol/L Invalid Interpretation Code 3.5-5.1 [facility] Comment on above: Result Comment: Crit ical Result(s) Called at: 07:34:02 11/11/2024 by: AARTI to Ronald Dumas. Results read back by same. Performed By: #### L 100.0100, L500.4050 ####[facility] [address] [place], [address] Sodium [Moles/Vol] 135 mmol/L Low 136-145 [facility] Comment on above: Performed By: #### L 100.0100, L500.4050 ####[facility] [address] [place], [address] T PROT 6.6 g/dL Normal 6.4-8.2 [facility] Comment on above: Performed By: #### L 100.0100, L500.4050 ####[facility] [address] [place], [address] Urea nitrogen [Mass/Vol] 11 mg/dL Normal 7-18 [facility] Comment on above: Performed By: #### L 100.0100, L500.4050 ####[facility] [address] [place], [address] Emergency Department Summary on 11-11-2024 Emergency Department Summary Normal [facility] Eosinophil percentageOrdered By: Buddy Hall on 11-11-2024 Eosinophils/100 WBC (Bld) 1.2 % 0-5 [facility] Epithelial cells.squamous LM Ql (Urine sed)Ordered By: Buddy Hall on 11-11-2024 Epithelial cells.squamous LM.HPF (Urine sed) [#/Area] 0 /[HPF] 5-10 [facility] Erythrocyte distribution wid th ratioOrdered By: Buddy Hall on 11-11-2024 Erythrocyte distribution width (RBC) [Ratio] 13.7 % 11.6-14.6 [facility] Erythrocyte distribution wid th standard deviationOrdered By: Buddy Hall on 11-11-2024 Erythrocyte distribution width (RBC) [Entitic vol] 46.7 fL High 35.1-43.9 [facility] Estimated glomerular filtrat ion rate (GFR) AmericanOrdered By: Buddy Hall on 11-11-2024 Estimated GFR (MDRD) Amer 69 mL/min >60 [facility] Comment on above: GFR Calc Estimation of creatinine deniz aranceOrdered By: Buddy Hall on 11-11-2024 Estimated Creatinine Clearance Calc 92.31 ml/min [facility] Glomerular filtration rate ( GFR) estimationOrdered By: Buddy Hall on 11-11-2024 Estimated GFR (MDRD) Non-Af Amer 57 mL/min Low >60 [facility] Comment on above: Non- GFR Calc Glucose Ql (U)Ordered By: Smith Hall on 11-11-2024 Urine Glucose (UA) Normal mg/dl Normal [facility] Glucose measurementOrdered B y: Buddy Hall on 11-11-2024 Glucose [Mass/Vol] 233 mg/dL High 74-106 [facility] Comment on above: Glucose result great er than or equal to 200 mg/dLsuggests DIABETES MELLITUS per A.D.A. criteria. Hematocrit Auto (Bld) [Volum e fraction]Ordered By: Buddy Hall on 11-11-2024 Hematocrit (Bld) [Volume fraction] 33.1 % Low 37-47 [facility] Hemoglobin measurementOrdere d By: Buddy Hall on 11-11-2024 Hemoglobin (Bld) [Mass/Vol] 11.4 g/dL Low 12.0-15.0 [facility] Immature granulocytes/100 WB C Auto (Bld)Ordered By: Buddy Hall on 11-11-2024 Immature granulocytes/100 WBC (Bld) 1.200 % High 0.0-0.9 [facility] Comment on above: IG% - Immature Granu locytes (promyelocytes, myelocytes and metamyelocytes) > 1% indicates that a LEFT SHIFT is Present. Influenza virus A and B and SARS-CoV-2 (COVID-19) and Respiratory syncytial virus RNAOrdered By: Buddy Hall on 11-11-2024 SARS-CoV-2 (COVID-19) RNA ALLYSON+probe Ql (Unsp spec) [facility] Ketones Test strip Ql (U)Ord ered By: Buddy Hall on 11-11-2024 Ketones Ql (U) 5 mg/dl High Negative [facility] Laboratory - Chemistry and C hemistry - challengeOrdered By: Buddy Hall on 11-11-2024 AST [Catalytic activity/Vol] 16 U/L 15-37 [facility] Lymphocytes Auto (Unsp spec) [#/Vol]Ordered By: Buddy Hall on 11-11-2024 Lymphocytes (Bld) [#/Vol] 0.72 10*3/uL Low 0.83-4.51 [facility] Lymphocytes/100 WBC Auto (Un sp spec)Ordered By: Buddy Hall on 11-11-2024 Lymphocytes/100 WBC (Bld) 9.2 % Low 19-41 [facility] M100.678on 11-11-2024 M100.678 Pending SARS-CoV-2 (COVID 19) Negative INFLUENZA A Negative INFLUENZA B Negative RSV PCR Negative Normal [facility] Comment on above: Performed By: #### M 100.678, L400.0001 ####[facility] [address] [place], [place], [id number] MCV (mean corpuscular volume ) determinationOrdered By: Buddy Hall on 11-11-2024 MCV (RBC) [Entitic vol] 92.5 fL 81-99 [facility] Magnesiumon 11-11-2024 Magnesium [Mass/Vol] 1.7 mg/dL Normal 1.6-2.6 [facility] Comment on above: Performed By: #### L 501.5200 ####[facility] [address] [place], [place], [id number] Magnesium measurementOrdered By: Buddy Hall on 11-11-2024 Magnesium [Mass/Vol] 1.7 mg/dL 1.6-2.6 [facility] Mean corpuscular hemoglobin (MCH) determinationOrdered By: Buddy Hall on 11-11-2024 MCH (RBC) [Entitic mass] 31.8 pg 27.0-32.0 [facility] Mean corpuscular hemoglobin concentration (MCHC) determinationOrdered By: Buddy Hall on 11-11-2024 MCHC (RBC) [Mass/Vol] 34.4 g/dL 32-36 [facility] Mean platelet volume determi nationOrdered By: Buddy Hall on 11-11-2024 Platelet mean volume (Bld) [Entitic vol] 9.6 fL 6.2-12.0 [facility] Microscopic analysis of urin e for red blood cells (RBC)Ordered By: Buddy Hall on 11-11-2024 Urine RBC 0-5 SEEN /hpf 0-5 [facility] Monocyte percentageOrdered B y: Buddy Hall on 11-11-2024 Monocytes/100 WBC (Bld) 4.2 % 0-10 [facility] Mucus LM Ql (Urine sed)Order ed By: Buddy Hall on 11-11-2024 Mucus Ql (Urine sed) 0 SEEN /hpf [facility] Neutrophil percentageOrdered By: Buddy Hall on 11-11-2024 Neutrophils/100 WBC (Bld) 83.8 % High 47-70 [facility] Nitrite Test strip Ql (U)Ord ered By: Buddy Hall on 11-11-2024 Nitrite Ql (U) Negative Negative [facility] Nucleated red blood cell per centageOrdered By: Buddy Hall on 11-11-2024 Nucleated RBC/100 WBC (Bld) [Ratio] 0 % 0-5 [facility] Platelet countOrdered By: Smith Hall on 11-11-2024 Platelets (Bld) [#/Vol] 108 10*3/uL Low 150-450 [facility] Potassium measurementOrdered By: Buddy Hall on 11-11-2024 Potassium [Moles/Vol] 2.6 mmol/L Low 3.5-5.1 [facility] Comment on above: Critical Result(s) C alled at: 07:34:02 11/11/2024 by: ESTEFANIA MENDOZA to Ronald Dumas. Results read back by same. Protein Test strip Ql (U)Ord ered By: Buddy Hall on 11-11-2024 Protein Ql (U) 100 mg/dl High Negative [facility] RBC Auto (Bld) [#/Vol]Ordere d By: Buddy Hall on 11-11-2024 RBC (Bld) [#/Vol] 3.58 10*6/uL Low 4.2-5.4 [facility] Serum anion gap measurementO rdered By: Buddy Hall on 11-11-2024 Anion gap [Moles/Vol] 6 mmol/L 5-15 [facility] Serum globulin measurementOr dered By: Buddy Hall on 11-11-2024 Globulin (S) [Mass/Vol] 4.0 g/dL 2.2-4.2 [facility] Serum or plasma alanine arizmendi otransferase (ALT) measurementOrdered By: Buddy Hall on 11-11-2024 ALT [Catalytic activity/Vol] 29 U/L 13-56 [facility] Serum or plasma albumin sharron urement (mass/volume)Ordered By: Buddy Hall on 11-11-2024 Albumin [Mass/Vol] 2.6 g/dL Low 3.2-5.0 [facility] Serum or plasma alkaline toyin sphatase measurementOrdered By: Buddy Hall on 11-11-2024 ALP [Catalytic activity/Vol] 79 U/L 45-117 [facility] Serum or plasma calcium sharron urement (mass/volume)Ordered By: Buddy Hall on 11-11-2024 Calcium [Mass/Vol] 8.2 mg/dL Low 8.5-10.1 [facility] Serum or plasma creatinine m easurement (mass/volume)Ordered By: Buddy Hall on 11-11-2024 Creatinine [Mass/Vol] 1.12 mg/dL High 0.55-1.02 [facility] Comment on above: The validity of the calculated GFR & GFRAA in patients over 70 years has not been determined. Clinical correlation is essential. Serum or plasma urea nitroge n measurement (mass/volume)Ordered By: Buddy Hall on 11-11-2024 Urea nitrogen [Mass/Vol] 11 mg/dL 7-18 [facility] Sodium levelOrdered By: Ashia Hall on 11-11-2024 Sodium [Moles/Vol] 135 mmol/L Low 136-145 [facility] Total proteinOrdered By: Sim Hall on 11-11-2024 Protein [Mass/Vol] 6.6 g/dL 6.4-8.2 [facility] Urinalysis, Completeon 11-11 BACTERIA RARE Normal None Seen [facility] Comment on above: Order Comment: CLEAN CATCH Performed By: #### M 100.678, L400.0001 ####[facility] [address] [place], [address] EPI,SQUAMOUS 0-5 SEEN Normal 5-10 [facility] Comment on above: Order Comment: CLEAN CATCH Performed By: #### M 100.678, L400.0001 ####[facility] [address] [place], [address] RBC 0-5 SEEN Normal 0-5 [facility] Comment on above: Order Comment: CLEAN CATCH Performed By: #### M 100.678, L400.0001 ####[facility] [address] [place], [address] WBC 10-25 SEEN Normal 0-5 [facility] Comment on above: Order Comment: CLEAN CATCH Performed By: #### M 100.678, L400.0001 ####[facility] [id number] [place], [address] Mucus Ql (Urine sed) 0 SEEN Normal [facility] Comment on above: Order Comment: CLEAN CATCH Performed By: #### M 100.678, [id number] ####[facility] [id number] [place], [address] Urine blood detectionOrdered By: Buddy Hall on 11-11-2024 Urine Occult Blood 150 /ul High Negative [facility] Urine clarityOrdered By: Sim Hall on 11-11-2024 Clarity (U) Sl. Cloudy Clear [facility] Urine color determinationOrd ered By: Buddy Hall on 11-11-2024 Color (U) Yellow Yellow [facility] Urine cultureOrdered By: Sim Hall on 11-11-2024 Bacteria identified Cx Nom (U) Mixed Gram Pos & Gram Neg Org Abnormal [facility] Urine leukocyte esterase det ection by dipstickOrdered By: Buddy Hall on 11-11-2024 Leukocyte esterase Test strip Ql (U) 500 /ul High Negative [facility] Urine pHOrdered By: Buddy samuel on 11-11-2024 pH (U) 6.5 [pH] 5.0 - 8.0 [facility] Urine specific gravity measu rementOrdered By: Buddy Hall on 11-11-2024 Specific gravity (U) [Rel density] 1.010 1.002-1.030 [facility] Urobilinogen Ql (U)Ordered B y: Buddy Hall on 11-11-2024 Urine Urobilinogen Normal mg/dl Normal [facility] White blood cell (WBC) count Ordered By: Buddy Hall on 11-11-2024 WBC (Bld) [#/Vol] 7.8 10*3/uL 4.4-11.0 [facility] White blood cell countOrdere d By: Buddy Hall on 11-11-2024 Urine WBC 10-25 SEEN /hpf 0-5 [facility] Chiropractic Reporton 2023 Chiropractic Report Normal [facility] Brain/Head without Contrasto n 10-16-2024 Brain/Head without Contrast Normal [facility] Emergency Department Summary on 10-16-2024 Emergency Department Summary Normal [facility] HIP, UNI W/ Pelvis 2-3 Views on 10-16-2024 HIP, UNI W/ Pelvis 2-3 Views Normal [facility] Lumbar Spine 2 or 3 Viewson 10-16-2024 Lumbar Spine 2 or 3 Views Normal [facility] Spine Cervical without Contr ason 10-16-2024 Spine Cervical without Contras Normal [facility] HBA1C (OUTSIDE)on 07-08-2024 HbA1c (Bld) [Mass fraction] 6.7 % [facility] LIPID PANEL (OUTSIDE)on Cholesterol [Mass/Vol] 195 mg/dL [facility] Cholesterol in HDL [Mass/Vol] 35 mg/dL [facility] Cholesterol in LDL [Mass/Vol] 105 mg/dL [facility] LDL:HDL Ratio [facility] Non-HDL Cholesterol [facility] TC:HDL Ratio [facility] Triglyceride [Mass/Vol] 274 mg/dL [facility] VLDL Cholesterol 55 [facility] No Panel Informationon 07-08 [facility] MICROALBUMIN/CREATININE UR W RATIO (EXTERNAL)Ordered By: Lubna Yoon on 07-04-2024 Albumin/Creat Ratio 93 [facility] Creatinine Urine 164 [facility] Microalbumin, Random urine 153 [facility] Absolute lymphocyte countOrd ered By: Sam Pearl on 02-04-2024 Lymphocytes Auto (Unsp spec) [#/Vol] 2.24 10*3/uL 0.83-4.51 [facility] Automated lymphocyte count a s percentage of total leukocytesOrdered By: Sam Pearl on 02-04-2024 Lymphocytes/100 WBC Auto (Unsp spec) 19.8 % 19-41 [facility] Basophil percentageOrdered B y: Sam Pearl on 02-04-2024 Basophils/100 WBC (Bld) 0.4 % 0-1 [facility] Chloride [Moles/Vol] 106 mmol/L 98-107 [facility] Eosinophils/100 WBC (Bld) 0.9 % 0-5 [facility] Glucose [Mass/Vol] 246 mg/dL 74-106 [facility] Comment on above: Glucose result great er than or equal to 200 mg/dLsuggests DIABETES MELLITUS per A.D.A. criteria. Hemoglobin (Bld) [Mass/Vol] 11.2 g/dL 12.0-15.0 [facility] Monocytes/100 WBC (Bld) 6.6 % 0-10 [facility] Neutrophils (Bld) [#/Vol] 8.0 10*3/uL 2.0-7.7 [facility] Neutrophils/100 WBC (Bld) 71.0 % 47-70 [facility] Potassium [Moles/Vol] 3.6 mmol/L 3.5-5.1 [facility] Sodium [Moles/Vol] 135 mmol/L 136-145 [facility] WBC (Bld) [#/Vol] 11.3 10*3/uL 4.4-11.0 [facility] Basophil percentage 10-25 SEEN /hpf 0-5 [facility] Bilirubin Test strip Ql (U)O rdered By: Sam Pearl on 02-04-2024 Bilirubin Ql (U) Negative Negative [facility] Determination of erythrocyte mean corpuscular volume (MCV)Ordered By: Sam Pearl on 02-04-2024 MCV (RBC) [Entitic vol] 89.5 fL 81-99 [facility] Erythrocyte distribution wid th ratioOrdered By: Sam Pearl on 02-04-2024 Erythrocyte distribution width (RBC) [Ratio] 13.2 % 11.6-14.6 [facility] Erythrocyte distribution wid th standard deviationOrdered By: Sam Pearl on 02-04-2024 Erythrocyte distribution width (RBC) [Entitic vol] 43.2 fL 35.1-43.9 [facility] Hematocrit Auto (Bld) [Volum e fraction]Ordered By: Sam Pearl on 02-04-2024 Hematocrit (Bld) [Volume fraction] 34.2 % 37-47 [facility] Immature granulocytes/100 WB C Auto (Bld)Ordered By: Sam Pearl on 02-04-2024 Immature granulocytes/100 WBC (Bld) 1.300 % 0.0-0.9 [facility] Comment on above: IG% - Immature Granu locytes (promyelocytes, myelocytes and metamyelocytes) > 1% indicates that a LEFT SHIFT is Present. Ketones Test strip Ql (U)Ord ered By: Sam Pearl on 02-04-2024 Ketones Ql (U) Negative Negative [facility] Laboratory - Chemistry and C hemistry - challengeOrdered By: Sam Pearl on 02-04-2024 CO2 [Moles/Vol] 21.0 mmol/L 21.0-32.0 [facility] Urea nitrogen/Creatinine [Mass ratio] 15.0 mg/mg 10-20 [facility] Laboratory - Hematology and Cell countsOrdered By: Sam Pearl on 02-04-2024 MCH (RBC) [Entitic mass] 29.3 pg 27.0-32.0 [facility] MCHC (RBC) [Mass/Vol] 32.7 g/dL 32-36 [facility] Nucleated RBC/100 WBC (Bld) [Ratio] 0 % 0-5 [facility] Platelet mean volume (Bld) [Entitic vol] 9.2 fL 6.2-12.0 [facility] Platelets (Bld) [#/Vol] 203 10*3/uL 150-450 [facility] Laboratory - Microbiology an d Antimicrobial susceptibilityOrdered By: Sam Pearl on 02-04-2024 SARS-CoV-2 (COVID-19) RNA ALLYSON+probe Ql (Unsp spec) [facility] Mucus LM Ql (Urine sed)Order ed By: Sam Pearl on 02-04-2024 Mucus Ql (Urine sed) 0 SEEN /hpf [facility] Nitrite Test strip Ql (U)Ord ered By: Sam Pearl on 02-04-2024 Nitrite Ql (U) Negative Negative [facility] No Panel InformationOrdered By: Sam Pearl on 02-04-2024 Estimated Creatinine Clearance Calc 116.68 ml/min [facility] Estimated GFR (MDRD) Amer 92 mL/min >60 [facility] Comment on above: GFR Calc Estimated GFR (MDRD) Non-Af Amer 76 mL/min >60 [facility] Comment on above: Non- GFR Calc Urine RBC 0-5 SEEN /hpf 0-5 [facility] Protein Test strip Ql (U)Ord ered By: Sam Pearl on 02-04-2024 Protein Ql (U) 15 mg/dl Negative [facility] RBC Auto (Bld) [#/Vol]Ordere d By: Sam Pearl on 02-04-2024 RBC (Bld) [#/Vol] 3.82 10*6/uL 4.2-5.4 [place] [facility] Serum or plasma calcium sharron urement (mass/volume)Ordered By: Sam Pearl on 02-04-2024 Calcium [Mass/Vol] 8.4 mg/dL 8.5-10.1 [facility] Serum or plasma creatinine m easurement (mass/volume)Ordered By: Sam Pearl on 02-04-2024 Creatinine [Mass/Vol] 0.87 mg/dL 0.55-1.02 [facility] Comment on above: The validity of the calculated GFR & GFRAA in patients over 70 years has not been determined. Clinical correlation is essential. Serum or plasma urea nitroge n measurement (mass/volume)Ordered By: Sam Pearl on 02-04-2024 Urea nitrogen [Mass/Vol] 13 mg/dL 7-18 [facility] Squamous epithelial cells de tection in urine sediment by light microscopyOrdered By: Sam Pearl on 02-04-2024 Epithelial cells.squamous LM Ql (Urine sed) 0-5 SEEN /hpf 5-10 [facility] Thin prep Papanicolaou smear with manual screeningOrdered By: Sam Pearl on 02-04-2024 Thin prep Papanicolaou smear with manual screening 8 5-15 [facility] Urine blood detectionOrdered By: Sam Pearl on 02-04-2024 RBC Ql (U) 10 /ul Negative [facility] Urine clarityOrdered By: Ramses Pearl on 02-04-2024 Clarity (U) Clear Clear [facility] Urine color determinationOrd ered By: Sam Pearl on 02-04-2024 Color (U) Yellow Yellow [facility] Urine glucose detectionOrder ed By: Sam Pearl on 02-04-2024 Glucose Ql (U) Normal mg/dl Normal [facility] Urine leukocyte esterase det ection by dipstickOrdered By: Sam Pearl on 02-04-2024 Leukocyte esterase Test strip Ql (U) 100 /ul Negative [facility] Urine pHOrdered By: Sam Pearl on 02-04-2024 pH (U) 7.0 [pH] 5.0 - 8.0 [facility] Urine sediment bacteria coun t by microscopy (number/high power field)Ordered By: Sam Pearl on 02-04-2024 Bacteria LM.HPF (Urine sed) [#/Area] 4 /[HPF] None Seen [facility] Urine specific gravity measu rementOrdered By: Sam Pearl on 02-04-2024 Specific gravity (U) [Rel density] 1.010 1.002-1.030 [facility] Urine urobilinogen measureme ntOrdered By: Sam Pearl on 02-04-2024 Urobilinogen Ql (U) Normal mg/dl Normal [facility] Absolute lymphocyte countOrd ered By: Ivette Patinoo on 12-06-2023 Lymphocytes Auto (Unsp spec) [#/Vol] 2.89 10*3/uL 0.83-4.51 [facility] Automated lymphocyte count a s percentage of total leukocytesOrdered By: Ivette Patinoo on 12-06-2023 Lymphocytes/100 WBC Auto (Unsp spec) 27.0 % 19-41 [facility] Basophil percentageOrdered B y: Ivette Sydney on 12-06-2023 Basophils/100 WBC (Bld) 0.7 % 0-1 [facility] Bilirubin [Mass/Vol] 0.50 mg/dL 0.20-1.00 [facility] Comment on above: For patients on eltr ombopag therapy, use of Dimension [place] TBIL is not recommended. Chloride [Moles/Vol] 113 mmol/L 98-107 [facility] Cholesterol [Mass/Vol] 202 mg/dL <200 [facility] Comment on above: <200 mg/dL Desirable 200-240 mg/dL Borderline >240 mg/dL High Risk Eosinophils/100 WBC (Bld) 1.4 % 0-5 [facility] Glucose [Mass/Vol] 113 mg/dL 74-106 [facility] Comment on above: Fasting Glucose resu lt from 100 to 125 mg/dL suggests IMPAIRED HOMEOSTASIS per A.D.A. criteria. Hemoglobin (Bld) [Mass/Vol] 13.1 g/dL 12.0-15.0 [facility] Monocytes/100 WBC (Bld) 3.6 % 0-10 [facility] Neutrophils (Bld) [#/Vol] 7.1 10*3/uL 2.0-7.7 [facility] Neutrophils/100 WBC (Bld) 66.3 % 47-70 [facility] Potassium [Moles/Vol] 4.0 mmol/L 3.5-5.1 [facility] Protein [Mass/Vol] 8.7 g/dL 6.4-8.2 [facility] Sodium [Moles/Vol] 138 mmol/L 136-145 [facility] Triglyceride [Mass/Vol] 192 mg/dL <199 [facility] Comment on above: The drugs N-Acetylcy steine and Metamizole may falsely depress this assay.Serum Triglycerides Reference Interval Normal <150 mg/dL Borderline high 150 - 199 mg/dL High 200 - 499 mg/dL Very High > or = 500 mg/dL WBC (Bld) [#/Vol] 10.7 10*3/uL 4.4-11.0 [facility] Determination of erythrocyte mean corpuscular volume (MCV)Ordered By: Ivette Grimes on 12-06-2023 MCV (RBC) [Entitic vol] 92.8 fL 81-99 [facility] Erythrocyte distribution wid th ratioOrdered By: Ivette Grimes on 12-06-2023 Erythrocyte distribution width (RBC) [Ratio] 13.1 % 11.6-14.6 [facility] Erythrocyte distribution wid th standard deviationOrdered By: Ivette Grimes on 12-06-2023 Erythrocyte distribution width (RBC) [Entitic vol] 44.4 fL 35.1-43.9 [facility] Hematocrit Auto (Bld) [Volum e fraction]Ordered By: Ivette Grimes on 12-06-2023 Hematocrit (Bld) [Volume fraction] 39.9 % 37-47 [facility] Immature granulocytes/100 WB C Auto (Bld)Ordered By: Ivette Grimes on 12-06-2023 Immature granulocytes/100 WBC (Bld) 1.000 % 0.0-0.9 [facility] Comment on above: IG% - Immature Granu locytes (promyelocytes, myelocytes and metamyelocytes) > 1% indicates that a LEFT SHIFT is Present. Laboratory - Chemistry and C hemistry - challengeOrdered By: Ivette Grimes on 12-06-2023 Albumin/Globulin [Mass ratio] 0.9 {ratio} 0.9-2.4 [facility] ALP [Catalytic activity/Vol] 80 U/L 45-117 [facility] ALT [Catalytic activity/Vol] 24 U/L 13-56 [facility] Cholesterol in HDL (Body fld) [Mass/Vol] 36 mg/dL >40 [facility] Comment on above: The drugs N-Acetylcy steine and Metamizole may falsely depress this assay. Reference Range HDL <40 mg/dL Low HDL Cholesterol HDL >or= 60 mg/dL High HDL Cholesterol Cholesterol in LDL (Body fld) [Moles/Vol] 128 mg/dL 0-130 [facility] Cholesterol in VLDL Calc [Moles/Vol] 38 mg/dL 5-40 [facility] CO2 [Moles/Vol] 19.0 mmol/L 21.0-32.0 [facility] Globulin (S) [Mass/Vol] 4.6 g/dL 2.2-4.2 [facility] Urea nitrogen/Creatinine [Mass ratio] 25.9 mg/mg 10-20 [facility] Laboratory - Hematology and Cell countsOrdered By: Ivette Grimes on 12-06-2023 MCH (RBC) [Entitic mass] 30.5 pg 27.0-32.0 [facility] MCHC (RBC) [Mass/Vol] 32.8 g/dL 32-36 [facility] Nucleated RBC/100 WBC (Bld) [Ratio] 0 % 0-5 [facility] Platelets (Bld) [#/Vol] 241 10*3/uL 150-450 [facility] No Panel InformationOrdered By: Ivette Grimes on 12-06-2023 Estimated GFR (MDRD) Amer 90 mL/min >60 [facility] Comment on above: GFR Calc Estimated GFR (MDRD) Non-Af Amer 74 mL/min >60 [facility] Comment on above: Non- GFR Calc Platelet mean volume Jose-Ec ker (Bld) [Entitic vol]Ordered By: Ivette Grimes on 12-06-2023 Platelet mean volume (Bld) [Entitic vol] 8.8 fL 6.2-12.0 [facility] RBC Auto (Bld) [#/Vol]Ordere d By: Ivette Grimes on 12-06-2023 RBC (Bld) [#/Vol] 4.30 10*6/uL 4.2-5.4 [facility] Serum or plasma calcium sharron urement (mass/volume)Ordered By: Ivette Grimes on 12-06-2023 Calcium [Mass/Vol] 9.1 mg/dL 8.5-10.1 [facility] Serum or plasma creatinine m easurement (mass/volume)Ordered By: Ivette Grimes on 12-06-2023 Creatinine [Mass/Vol] 0.89 mg/dL 0.55-1.02 [facility] Comment on above: The validity of the calculated GFR & GFRAA in patients over 70 years has not been determined. Clinical correlation is essential. Serum or plasma urea nitroge n measurement (mass/volume)Ordered By: Ivette Grimes on 12-06-2023 Urea nitrogen [Mass/Vol] 23 mg/dL 7-18 [facility] Thin prep Papanicolaou smear with manual screeningOrdered By: Ivette Grimes on 12-06-2023 Thin prep Papanicolaou smear with manual screening 4.1 g/dL 3.2-5.0 [facility] Thin prep Papanicolaou smear with manual screening 11 U/L 15-37 [facility] Thin prep Papanicolaou smear with manual screening 6 5-15 [facility] Whole blood hemoglobin A1c/t otal hemoglobin ratio (mass fraction)Ordered By: Ivette Grimes on 12-06-2023 HbA1c (Bld) [Mass fraction] 5.7 % 3.8-5.6 [facility] Comment on above: Normal < 5.7 % Predi abetic 5.7 - 6.4 % Diabetic >or= 6.5 % Please note range changes. Glucose Glucometer (BldC) [M ass/Vol]Ordered By: Sosa Mendez on 08-07-2023 Glucose [Mass/Vol] 157 mg/dL 74-106 [facility] Comment on above: MANAGEMENT OF PATIEN T CARE PER NURSING PROTOCOL Absolute lymphocyte countOrd ered By: Sosa Mendez on 08-06-2023 Lymphocytes Auto (Unsp spec) [#/Vol] 2.45 10*3/uL 0.83-4.51 [facility] Basophil percentageOrdered B y: Soas Mendez on 10-03-2023 Basophils/100 WBC (Bld) 0.8 % 0-1 [facility] Chloride [Moles/Vol] 111 mmol/L 98-107 [facility] Cholesterol [Mass/Vol] 173 mg/dL <200 [facility] Comment on above: <200 mg/dL Desirable 200-240 mg/dL Borderline >240 mg/dL High Risk Eosinophils/100 WBC (Bld) 3.1 % 0-5 [facility] Glucose [Mass/Vol] 143 mg/dL 74-106 [facility] Comment on above: Fasting Glucose resu lt greater than or equal to 126 mg/dL suggests DIABETES MELLITUS per A.D.A. criteria. Neutrophils (Bld) [#/Vol] 3.9 10*3/uL 2.0-7.7 [facility] Neutrophils/100 WBC (Bld) 54.5 % 47-70 [facility] Potassium [Moles/Vol] 3.6 mmol/L 3.5-5.1 [facility] Sodium [Moles/Vol] 139 mmol/L 136-145 [facility] Triglyceride [Mass/Vol] 325 mg/dL <199 [facility] Comment on above: The drugs N-Acetylcy steine and Metamizole may falsely depress this assay.Serum Triglycerides Reference Interval Normal <150 mg/dL Borderline high 150 - 199 mg/dL High 200 - 499 mg/dL Very High > or = 500 mg/dL WBC (Bld) [#/Vol] 7.1 10*3/uL 4.4-11.0 [facility] Blood erythrocytes count (nu mber/volume)Ordered By: Sosa Mendez on 08-06-2023 RBC (Bld) [#/Vol] 4.15 10*6/uL 4.2-5.4 [facility] Blood hemoglobin measurement (mass/volume)Ordered By: Sosa Mendez on 08-06-2023 Hemoglobin (Bld) [Mass/Vol] 13.0 g/dL 12.0-15.0 [facility] Blood lymphocytes/100 leukoc ytesOrdered By: Sosa Mendez on 08-06-2023 Lymphocytes/100 WBC (Bld) 34.4 % 19-41 [facility] Blood monocytes/100 leukocyt esOrdered By: Sosa Mendez on 08-06-2023 Monocytes/100 WBC (Bld) 5.2 % 0-10 [facility] Blood platelet mean volumeOr dered By: Sosa Mendez on 08-06-2023 Platelet mean volume (Bld) [Entitic vol] 9.4 fL 6.2-12.0 [facility] Determination of erythrocyte mean corpuscular volume (MCV)Ordered By: Sosa Mendez on 08-06-2023 MCV (RBC) [Entitic vol] 95.4 fL 81-99 [facility] Hematocrit Auto (Bld) [Volum e fraction]Ordered By: Sosa Mendez on 08-06-2023 Hematocrit (Bld) [Volume fraction] 39.6 % 37-47 [facility] Laboratory - Chemistry and C hemistry - challengeOrdered By: Sosa Mendez on 08-06-2023 CO2 [Moles/Vol] 23.0 mmol/L 21.0-32.0 [facility] Urea nitrogen/Creatinine [Mass ratio] 15.4 mg/mg 10-20 [facility] Laboratory - Hematology and Cell countsOrdered By: Sosa Mendez on 08-06-2023 Erythrocyte distribution width (RBC) [Entitic vol] 45.4 fL 35.1-43.9 [facility] Erythrocyte distribution width (RBC) [Ratio] 13.0 % 11.6-14.6 [facility] Immature granulocytes/100 WBC (Bld) 2.000 % 0.0-0.9 [facility] Comment on above: IG% - Immature Granu locytes (promyelocytes, myelocytes and metamyelocytes) > 1% indicates that a LEFT SHIFT is Present. MCH (RBC) [Entitic mass] 31.3 pg 27.0-32.0 [facility] Nucleated RBC/100 WBC (Bld) [Ratio] 0 % 0-5 [facility] MCHC Auto (RBC) [Mass/Vol]Or dered By: Sosa Mendez on 08-06-2023 MCHC (RBC) [Mass/Vol] 32.8 g/dL 32-36 [facility] No Panel InformationOrdered By: Sosa Mendez on 08-06-2023 Estimated Creatinine Clearance Calc 92.30 ml/min [facility] Estimated GFR (MDRD) Amer 104 mL/min >60 [facility] Comment on above: GFR Calc Estimated GFR (MDRD) Non-Af Amer 86 mL/min >60 [facility] Comment on above: Non- GFR Calc Platelets bldOrdered By: Shanell Mendez on 08-06-2023 Platelets (Bld) [#/Vol] 184 10*3/uL 150-450 [facility] Serum or plasma calcium sharron urement (mass/volume)Ordered By: Sosa Mendez on 08-06-2023 Calcium [Mass/Vol] 8.2 mg/dL 8.5-10.1 [facility] Serum or plasma cholesterol in HDL measurement (mass/volume)Ordered By: Sosa Mendez on 08-06-2023 Cholesterol in HDL [Mass/Vol] 29 mg/dL >40 [facility] Comment on above: The drugs N-Acetylcy steine and Metamizole may falsely depress this assay. Reference Range HDL <40 mg/dL Low HDL Cholesterol HDL >or= 60 mg/dL High HDL Cholesterol Serum or plasma cholesterol in VLDL measurement (mass/volume)Ordered By: Sosa Mendez on 08-06-2023 Cholesterol in VLDL [Mass/Vol] 65 mg/dL 5-40 [facility] Serum or plasma creatinine m easurement (mass/volume)Ordered By: Sosa Mendez on 08-06-2023 Creatinine [Mass/Vol] 0.78 mg/dL 0.55-1.02 [facility] Comment on above: The validity of the calculated GFR & GFRAA in patients over 70 years has not been determined. Clinical correlation is essential. Serum or plasma low density lipoprotein (LDL) cholesterol measurement (mass/volume)Ordered By: Sosa Mendez on 08-06-2023 Cholesterol in LDL [Mass/Vol] 79 mg/dL 0-130 [facility] Serum or plasma urea nitroge n measurement (mass/volume)Ordered By: Sosa Mendez on 08-06-2023 Urea nitrogen [Mass/Vol] 12 mg/dL 7-18 [facility] Thin prep Papanicolaou smear with manual screeningOrdered By: Sosa Mendez on 08-06-2023 Thin prep Papanicolaou smear with manual screening 5 5-15 [facility] Absolute lymphocyte countOrd ered By: Niurka Kendall on 08-05-2023 Lymphocytes Auto (Unsp spec) [#/Vol] 2.33 10*3/uL 0.83-4.51 [facility] Basophil percentageOrdered B y: Niurka Kendall on 08-05-2023 Basophils/100 WBC (Bld) 0.9 % 0-1 [facility] Chloride [Moles/Vol] 110 mmol/L 98-107 [facility] Eosinophils/100 WBC (Bld) 2.6 % 0-5 [facility] Glucose [Mass/Vol] 108 mg/dL 74-106 [facility] Comment on above: Fasting Glucose resu lt from 100 to 125 mg/dL suggests IMPAIRED HOMEOSTASIS per A.D.A. criteria. Neutrophils (Bld) [#/Vol] 4.7 10*3/uL 2.0-7.7 [facility] Neutrophils/100 WBC (Bld) 59.9 % 47-70 [facility] Potassium [Moles/Vol] 3.7 mmol/L 3.5-5.1 [facility] Sodium [Moles/Vol] 140 mmol/L 136-145 [facility] WBC (Bld) [#/Vol] 7.8 10*3/uL 4.4-11.0 [facility] Blood erythrocytes count (nu mber/volume)Ordered By: Niurka Kendall on 08-05-2023 RBC (Bld) [#/Vol] 4.04 10*6/uL 4.2-5.4 [facility] Blood hemoglobin measurement (mass/volume)Ordered By: Niurka Kendall on 08-05-2023 Hemoglobin (Bld) [Mass/Vol] 12.9 g/dL 12.0-15.0 [facility] Blood lymphocytes/100 leukoc ytesOrdered By: Niurka Kendall on 08-05-2023 Lymphocytes/100 WBC (Bld) 30.1 % 19-41 [facility] Blood monocytes/100 leukocyt esOrdered By: Niurka Kendall on 08-05-2023 Monocytes/100 WBC (Bld) 5.2 % 0-10 [facility] Blood platelet mean volumeOr dered By: Niurka Kendall on 08-05-2023 Platelet mean volume (Bld) [Entitic vol] 9.7 fL 6.2-12.0 [facility] COVID-19 virus antigen assay Ordered By: Niurka Kendall on 08-05-2023 SARS-CoV-2 (COVID-19) Ag IA.rapid Ql (Resp) [facility] SARS-CoV-2 (COVID-19) Ag IA.rapid Ql (Resp) [facility] Determination of erythrocyte mean corpuscular volume (MCV)Ordered By: Niurka Kendall on 08-05-2023 MCV (RBC) [Entitic vol] 97.8 fL 81-99 [facility] Glucose Glucometer (dC) [M ass/Vol]Ordered By: Niurka Kendall on 08-05-2023 Glucose [Mass/Vol] 120 mg/dL 74-106 [facility] Comment on above: MANAGEMENT OF PATIEN T CARE PER NURSING PROTOCOL Hematocrit Auto (Bld) [Volum e fraction]Ordered By: Niurka Kendall on 08-05-2023 Hematocrit (Bld) [Volume fraction] 39.5 % 37-47 [facility] INR in Blood by Coagulation assayOrdered By: Niurka Kendall on 08-05-2023 INR Coag (Bld) [Relative time] 1.1 {INR} [facility] Laboratory - Chemistry and C hemistry - challengeOrdered By: Niurka Kendall on 08-05-2023 CO2 [Moles/Vol] 24.0 mmol/L 21.0-32.0 [facility] Urea nitrogen/Creatinine [Mass ratio] 20.8 mg/mg 10 [facility] Laboratory - CoagulationOrde red By: Niurka Kendall on 08-05-2023 aPTT Coag (Bld) [Time] 32.7 s 24.1-36.2 [facility] PT Coag (PPP) [Time] 14.4 s 11.7-14.9 [facility] Laboratory - Hematology and Cell countsOrdered By: Niurka Kendall on 08-05-2023 Erythrocyte distribution width (RBC) [Entitic vol] 47.0 fL 35.1-43.9 [facility] Erythrocyte distribution width (RBC) [Ratio] 13.1 % 11.6-14.6 [facility] Immature granulocytes/100 WBC (Bld) 1.300 % 0.0-0.9 [facility] Comment on above: IG% - Immature Granu locytes (promyelocytes, myelocytes and metamyelocytes) > 1% indicates that a LEFT SHIFT is Present. MCH (RBC) [Entitic mass] 31.9 pg 27.0-32.0 [facility] Nucleated RBC/100 WBC (Bld) [Ratio] 0 % 0-5 [facility] MCHC Auto (RBC) [Mass/Vol]Or dered By: Niurka Kendall on 08-05-2023 MCHC (RBC) [Mass/Vol] 32.7 g/dL 32-36 [facility] No Panel InformationOrdered By: Niurka Kendall on 08-05-2023 Estimated Creatinine Clearance Calc 99.99 ml/min [facility] Estimated GFR (MDRD) Amer 115 mL/min >60 [facility] Comment on above: GFR Calc Estimated GFR (MDRD) Non-Af Amer 95 mL/min >60 [facility] Comment on above: Non- GFR Calc Thyroid Stimulating Hormone (TSH) 1.54 uIU/mL 0.358-3.74 [facility] Troponin I High Sensitivity 4 pg/mL 3.0-54.0 [facility] Comment on above: Please Note: New Ananth t Units and Gender Specific Reference Ranges. For more information see Policy Stat Procedure [place] High Sensitivity Troponin (TNIH) and attachments. Platelets bldOrdered By: Romina Kendall on 08-05-2023 Platelets (Bld) [#/Vol] 190 10*3/uL 150-450 [facility] Serum or plasma calcium sharron urement (mass/volume)Ordered By: Niurka Kendall on 08-05-2023 Calcium [Mass/Vol] 8.5 mg/dL 8.5-10.1 [facility] Serum or plasma creatinine m easurement (mass/volume)Ordered By: Niurka Kendall on 08-05-2023 Creatinine [Mass/Vol] 0.72 mg/dL 0.55-1.02 [facility] Comment on above: The validity of the calculated GFR & GFRAA in patients over 70 years has not been determined. Clinical correlation is essential. Serum or plasma urea nitroge n measurement (mass/volume)Ordered By: Niurka Kendall on 08-05-2023 Urea nitrogen [Mass/Vol] 15 mg/dL 7-18 [facility] Thin prep Papanicolaou smear with manual screeningOrdered By: Niurka Kendall on 08-05-2023 Thin prep Papanicolaou smear with manual screening 6 5-15 [facility] Whole blood hemoglobin A1c/t otal hemoglobin ratio (mass fraction)Ordered By: Sosa Mendez on 08-05-2023 HbA1c (Bld) [Mass fraction] 6.6 % 3.8-5.6 [facility] Comment on above: Normal < 5.7 % Predi abetic 5.7 - 6.4 % Diabetic >or= 6.5 % Please note range changes. XR Foot - right AP and Later al and obliqueon 05-28-2023 IMPRESSION: No acute osseous abnormalities are identified. Calcaneal spurring. Anaesthesiologist: [facility] Transcribe Date/Time: May 28 2023 11:55A Dictated by : BRITTANY MCCANN MD This examination was interpreted and the report reviewed and electronically signed by: BRITTANY MCCANN MD on May 28 2023 11:56AM [facility] DIVISION OF RADIOLOGY * * *Final [...] RADIOLOGY Provider, [facility] [place] - 05/28/2023 * * *Final Report* * [...] acute osseous abnormalities are identified. Calcaneal spurring. Anaesthesiologist: DIANE Transcribe Date/Time: May 28 2023 11:55A Dictated by : BRITTANY MCCANN MD This examination was interpreted and the report reviewed and electronically signed by: BRITTANY MCCANN MD on May 28 2023 11:56AM EST [facility] Radiology Study observation (narrative) [facility] XR Foot - right AP and Later al and obliqueOrdered By: Ccf Provider on 05-28-2023 [facility] Absolute lymphocyte countOrd ered By: Dr. Grimes on 03-04-2023 Lymphocytes Auto (Unsp spec) [#/Vol] 2.34 10*3/uL 0.83-4.51 [facility] Basophil percentageOrdered B y: Dr. Grimes on 03-04-2023 Basophils/100 WBC (Bld) 1.0 % 0-1 [facility] Chloride [Moles/Vol] 109 mmol/L 98-107 [facility] Eosinophils/100 WBC (Bld) 2.3 % 0-5 [facility] Glucose [Mass/Vol] 142 mg/dL 74-106 [facility] Comment on above: Fasting Glucose resu lt greater than or equal to 126 mg/dL suggests DIABETES MELLITUS per A.D.A. criteria. Neutrophils (Bld) [#/Vol] 5.6 10*3/uL 2.0-7.7 [facility] Neutrophils/100 WBC (Bld) 63.9 % 47-70 [facility] Potassium [Moles/Vol] 3.9 mmol/L 3.5-5.1 [facility] Sodium [Moles/Vol] 138 mmol/L 136-145 [facility] WBC (Bld) [#/Vol] 8.8 10*3/uL 4.4-11.0 [facility] Blood erythrocytes count (nu mber/volume)Ordered By: Dr. Grimes on 03-04-2023 RBC (Bld) [#/Vol] 4.38 10*6/uL 4.2-5.4 [facility] Blood hemoglobin measurement (mass/volume)Ordered By: Dr. Grimes on 03-04-2023 Hemoglobin (Bld) [Mass/Vol] 14.1 g/dL 12.0-15.0 [facility] Blood lymphocytes/100 leukoc ytesOrdered By: Dr. Grimes on 03-04-2023 Lymphocytes/100 WBC (Bld) 26.5 % 19-41 [facility] Blood monocytes/100 leukocyt esOrdered By: Dr. Grimes on 03-04-2023 Monocytes/100 WBC (Bld) 4.6 % 0-10 [facility] Blood platelet mean volumeOr dered By: Dr. Grimes on 03-04-2023 Platelet mean volume (Bld) [Entitic vol] 9.5 fL 6.2-12.0 [facility] Determination of erythrocyte mean corpuscular volume (MCV)Ordered By: Dr. Grimes on 03-04-2023 MCV (RBC) [Entitic vol] 96.8 fL 81-99 [facility] Hematocrit Auto (Bld) [Volum e fraction]Ordered By: Dr. Grimes on 03-04-2023 Hematocrit (Bld) [Volume fraction] 42.4 % 37-47 [facility] Iron measurement (mass/mass) Ordered By: Dr. Grimes on 03-04-2023 Iron (Unsp spec) [Mass/Mass] 92 ug/dL 50-170 [facility] Laboratory - Chemistry and C hemistry - challengeOrdered By: Dr. Grimes on 03-04-2023 CO2 [Moles/Vol] 21.0 mmol/L 21.0-32.0 [facility] Magnesium [Mass/Vol] 1.7 mg/dL 1.6-2.6 [facility] Urea nitrogen/Creatinine [Mass ratio] 17.1 mg/mg 10-20 [facility] Laboratory - Hematology and Cell countsOrdered By: Dr. Grimes on 03-04-2023 Erythrocyte distribution width (RBC) [Entitic vol] 48.1 fL 35.1-43.9 [facility] Erythrocyte distribution width (RBC) [Ratio] 13.3 % 11.6-14.6 [facility] Immature granulocytes/100 WBC (Bld) 1.700 % 0.0-0.9 [facility] Comment on above: IG% - Immature Granu locytes (promyelocytes, myelocytes and metamyelocytes) > 1% indicates that a LEFT SHIFT is Present. MCH (RBC) [Entitic mass] 32.2 pg 27.0-32.0 [facility] Nucleated RBC/100 WBC (Bld) [Ratio] 0 % 0-5 [facility] MCHC Auto (RBC) [Mass/Vol]Or dered By: Dr. Grimes on 03-04-2023 MCHC (RBC) [Mass/Vol] 33.3 g/dL 32-36 [facility] No Panel InformationOrdered By: Dr. Grimes on 03-04-2023 Urine Microalbumin/Creatinine Ratio 63.0 mg/g CRE <30 [facility] Estimated GFR (MDRD) Amer 99 mL/min >60 [facility] Comment on above: GFR Calc Estimated GFR (MDRD) Non-Af Amer 82 mL/min >60 [facility] Comment on above: Non- GFR Calc Total Iron Binding Capacity 323 ug/dL 250-450 [facility] Platelets bldOrdered By: Dr. Grimes on 03-04-2023 Platelets (Bld) [#/Vol] 214 10*3/uL 150-450 [facility] Serum or plasma calcium sharron urement (mass/volume)Ordered By: Dr. Grimes on 03-04-2023 Calcium [Mass/Vol] 8.4 mg/dL 8.5-10.1 [facility] Serum or plasma creatinine m easurement (mass/volume)Ordered By: Dr. Grimes on 03-04-2023 Creatinine [Mass/Vol] 0.82 mg/dL 0.55-1.02 [facility] Comment on above: The validity of the calculated GFR & GFRAA in patients over 70 years has not been determined. Clinical correlation is essential. Serum or plasma iron saturat ion measurement (mass fraction)Ordered By: Dr. Grimes on 03-04-2023 Iron saturation [Mass fraction] 28.5 % 15.0-55.0 [facility] Serum or plasma urea nitroge n measurement (mass/volume)Ordered By: Dr. Grimes on 03-04-2023 Urea nitrogen [Mass/Vol] 14 mg/dL 7-18 [facility] Thin prep Papanicolaou smear with manual screeningOrdered By: Dr. Grimes on 03-04-2023 Thin prep Papanicolaou smear with manual screening 133.0 mg/L NO RANGE EST. [facility] Thin prep Papanicolaou smear with manual screening 8 5-15 [facility] Urine creatinine measurement (mass/volume)Ordered By: Dr. Grimes on 03-04-2023 Creatinine (U) [Mass/Vol] 211.00 mg/dL NO RANGE EST. [facility] Whole blood hemoglobin A1c/t otal hemoglobin ratio (mass fraction)Ordered By: Dr. Grimes on 03-04-2023 HbA1c (Bld) [Mass fraction] 6.1 % 3.8-5.6 [facility] Comment on above: Normal < 5.7 % Predi abetic 5.7 - 6.4 % Diabetic >or= 6.5 % Please note range changes. No Panel Informationon 02-28 [facility] CNCOon 01-24-2023 CNCO Letter Text Normal 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 Normal [facility] CNPIlaina 01-24-2023 CNPN Telephone (SPAGWO) ---- TORI GRAY ([id number]) 1980 F Date Time Provider Department 01/24/23 [...] by INTRAUTERINE route as directed. - Ipratropium Wynne (ATROVENT) 0.03 % nasal spray Use 2 Sprays in the nose every 12 hours. - metroNIDAZOLE (METROGEL) 0.75 % Topical Gel Apply to affected area twice daily. - Natoma-3 Fatty Acids (FISH OIL) 500 mg cap Take 1 capsule by mouth once daily. - blood sugar diagnostic (BLOOD GLUCOSE TEST) test strip Test blood sugar(s) 1 times daily. Dx: Type 2 DM - Controlled E11.9 Insulin: Yes - Lancets lancets Test blood sugar(s) 1 times daily. Dx: Type 2 DM - Controlled E11.9 Insulin: No - Uiqzfftg-Fn-Tbh-Fe- FA tab Take 1 tablet by mouth [...] 05/06/2009 01/23/2010 Routine general medical examination at [facility]*01/23/2010 12/06/2012 Class: Chronic Routine gynecological examination [Z01.419] 01/23/2010 02/22/2014 Class: Chronic Morbid Obesity [E66.01] 01/23/2010 Lumbar Disc Disorder [M51.9] 02/16/2010 (more content not included)... Normal [facility] HCG ( test) Ql (U)o n 01-02-2023 Specific gravity (U) [Rel density] 1.010 Normal 1.005-1.030 [facility] Comment on above: Order Comment: Speci men Type: URINE SPECIMENOrdering Facility: [facility] Address: [address] [place], [place] [address] [address] Performed By: #### 2 106-3 ####[facility] [id number] [place] [id number] [facility] HCG Preg Ur Qlon 01-02-2023 HCG ( test) Ql (U) Negative Normal Negative [facility] Comment on above: Order Comment: Speci men Type: URINE SPECIMENOrdering Facility: [facility] Address: [place] [address] Result Comment: This test is intended to aid in the early detection of . Very dilute urine samples, as indicated by a low specific gravity, may not contain congressional representative levels of hCG. This test detects [...] By: #### 2 106-3 ####[facility] [id number] [place] [address] [facility] HISTORY PHYSICALon HISTORY PHYSICAL HNO ID: [id number] Author: Elle Rasheed MD Service: Pain Management [...] 1/2 hr before meal. Unknown Yes Ipratropium Wynne (ATROVENT) 0.03 % nasal spray Use 2 Sprays in the nose every 12 hours. Unknown Yes Natoma-3 Fatty Acids (FISH OIL) 500 mg cap Take 1 capsule by mouth once daily. Patient taking differently: Take 1 tablet by mouth once daily. 1200 mg 01/02/2023 Yes blood sugar diagnostic (BLOOD GLUCOSE TEST) test strip Test blood sugar(s) 1 times daily. Dx: Type 2 DM - Controlled E11.9 Insulin: Yes Yes Mvelokci-Bg-Fts-Fe- FA tab Take 1 tablet by mouth [...] 2023 TIME: 11:00 AM Normal [facility] OPERATIVE NOon 01-02-2023 OPERATIVE NO HNO ID: [id number] Author: Elle Rasheed MD Service: Pain Management Author Type: Physician Type: Operative Report Filed: 01/02/2023 11:29 AM Note Text: OPERATIVE/PROCEDURE REPORT LOG ID: [id number] SURGERY/PROCEDURE DATE: 01/02/2023 INCISION/PROCEDURE START TIME: 11:18 AM INCISION CLOSE/PROCEDURE END TIME: 11:25 AM SURGEON(S)/PROCEDBRYSON WEST(S) AND BUYER BROKER(S): Surgeon(s) and Role: * Elle Rasheed MD [...] DATE: January 02, 2023 TIME: 11:28 AM [facility] Hany 11-29-2022 [facility] Telephone (AGSPINE3) ---- TORI GRAY ([id number]) 1980 F Date Time Provider Department 11/29/22 ELLE RASHEED AGSPINE3 During your visit today, we recorded the following information about you: Darrion Barahona 11/29/2022 2:40 PM Signed Patient has left a voicemail stating that she had fallen over the weekend and has a concussion. She is wondering if she should reschedule her appointment for 12/05/22 with you in [place] as she is not sure if this [...] to reschedule out to January 02 at [place], message has been sent to [place]. Darrion Shah Allergies As of Date: 11/29/2022 Noted Allergy Reaction LIDOCAINE 12/24/2019 4 - Hives STEROIDS (BETAMETHASONE DIPROPION* 2 4 - Hives Date Reviewed: 11/27/2022 Reviewed by: Dennise Robles - Fully Assessed Reason for Visit: Patient Question [5297] Cmt: [place] appointment on 12/05/22 Prescriptions as of 11/30/2022 [...] by INTRAUTERINE route as directed. - Ipratropium Wynne (ATROVENT) 0.03 % nasal spray Use 2 Sprays in the nose every 12 hours. - metroNIDAZOLE (METROGEL) 0.75 % Topical Gel Apply to affected area twice daily. - Natoma-3 Fatty Acids (FISH OIL) 500 mg cap Take 1 capsule by mouth once daily. - blood sugar diagnostic (BLOOD GLUCOSE TEST) test strip Test blood sugar(s) 1 times daily. Dx: Type 2 DM - Controlled E11.9 Insulin: Yes - Lancets lancets Test blood sugar(s) 1 times daily. Dx: Type 2 DM - Controlled E11.9 Insulin: No - Iprdlwqp-Tt-Exp-Fe- FA tab Take 1 tablet by mouth [...] included)... Normal [facility] Glucose Glucometer (BldC) [M ass/Vol]Ordered By: Dr. Shabazz on 11-24-2022 Glucose [Mass/Vol] 89 mg/dL 74-106 [facility] Comment on above: MANAGEMENT OF PATIREUBEN T CARE PER NURSING PROTOCOL CNOVon 11-08-2022 CNOV Office Visit (SPAGWO) ---- TORI GRAY ([id number]) 1980 F Date Time Provider Department 11/08/22 [...] The patient is not nervous/anxious. Adelina Marinelli APRN.LOOP TACKER 11/08/2022 1:55 PM Signed [facility] General Today's Date: 11/08/2022 Last Visit: [...] moderately severe depression, (20-27) severe depression [facility] and [facility]. All prescriptions have been APPROPRIATELY filled. No suspicious activity was identified. 11/08/2022 by Adelina Marinelli APRN.LOOP TACKER Allergies: ALLERGIES Allergen Reactions Lidocaine Hives Steroids [...] included)... Normal [facility] Hany 11-08-2022 CNPN Telephone (SPAGWO) ---- TORI GRAY ([id number]) 1980 F Date Time Provider Department 11/08/22 [...] No 9. Does this procedure require a jinrikisha driver? Yes If yes, has patient been notified that a jinrikisha driver is needed and must be present [...] 2nd dose of the COVID vaccine.) Vito sEtrella-Lidia Allergies As of Date: 11/08/2022 Noted Allergy Reaction LIDOCAINE 12/24/2019 4 - Hives STEROIDS (BETAMETHASONE DIPROPION* 2 4 - Hives Date Reviewed: 11/08/2022 Reviewed by: Adelina Marinelli APRN.LOOP TACKER - Fully Assessed Reason for Visit: Injections [...] by INTRAUTERINE route as directed. - Ipratropium Wynne (ATROVENT) 0.03 % nasal spray Use 2 Sprays in the nose every 12 hours. - metroNIDAZOLE (METROGEL) 0.75 % Topical Gel Apply to affected area twice daily. - Natoma-3 Fatty Acids (FISH OIL) 500 mg cap Take 1 capsule by mouth once daily. - blood sugar diagnostic (BLOOD GLUCOSE TEST) test strip Test blood sugar(s) 1 times daily. Dx: Type 2 DM - Controlled E11.9 Insulin: Yes - Lancets lancets Test blood sugar(s) 1 times daily. Dx: Type 2 DM - Controlled E11.9 Insulin: No - Utqfsaqm-Ib-Jkd-Fe- FA tab Take 1 tablet by mouth [...] included)... Normal [facility] Tele[facility] (AGSPINE2) ---- TORI GRAY ([id number]) 1980 F Date Time Provider Department 10/02/22 [...] spoke with and scheduled with Adelina in [place] beginning of the year. Adriana Licona Allergies As of Date: 10/02/2022 Noted Allergy Reaction LIDOCAINE 12/24/2019 4 - Hives STEROIDS (BETAMETHASONE DIPROPION* 2 4 - Hives Date Reviewed: 09/04/2022 Reviewed by: Dennise Robles - Fully Assessed Reason for Visit: Appointment [[id number]] Patient Question [2444] Prescriptions as of 10/02/2022 - tiZANidine (ZANAFLEX) [...] bed with current PAP mask. - Ipratropium Wynne (ATROVENT) 0.03 % nasal spray Use 2 Sprays in the nose every 12 hours. - metroNIDAZOLE (METROGEL) 0.75 % Topical Gel Apply to affected area twice daily. - Natoma-3 Fatty Acids (FISH OIL) 500 mg cap Take 1 capsule by mouth once daily. - blood sugar diagnostic (BLOOD GLUCOSE TEST) test strip Test blood sugar(s) 1 times daily. Dx: Type 2 DM - Controlled E11.9 Insulin: Yes - Lancets lancets Test blood sugar(s) 1 times daily. Dx: Type 2 DM - Controlled E11.9 Insulin: No - Pusugvem-Ny-Hrr-Fe- FA tab Take 1 tablet by mouth [...] 05/06/2009 01/23/2010 Routine general medical examination at [facility]*01/23/2010 12/06/2012 Class: Chronic Routine gynecological examination [Z01.419] 01/23/2010 02/22/2014 Class: Chronic Morbid Obesity [E66.01] 01/23/2010 Lumbar Disc Disorder [M51.9] 02/16/2010 Routine general medical examination at [facility]*12/06/2012 02/22/2014 Anxiety [F41.9] 06/07/2014 Type 2 [...] included)... Normal [facility] Absolute lymphocyte countOrd ered By: Dr. Grimes on 09-06-2022 Lymphocytes Auto (Unsp spec) [#/Vol] 2.67 10*3/uL 0.83-4.51 [facility] Basophil percentageOrdered B y: Dr. Grimes on 09-06-2022 Basophils/100 WBC (Bld) 0.5 % 0-1 [facility] Chloride [Moles/Vol] 110 mmol/L 98-107 [facility] Eosin[facility]/100 WBC (Bld) 2.1 % 0-5 [facility] Glucose [Mass/Vol] 120 mg/dL 74-106 [facility] Comment on above: Fasting Glucose resu lt from 100 to 125 mg/dL suggests IMPAIRED HOMEOSTASIS per A.D.A. criteria. Neutrophils (Bld) [#/Vol] 6.2 10*3/uL 2.0-7.7 [facility] Neutrophils/100 WBC (Bld) 64.2 % 47-70 [facility] Potassium [Moles/Vol] 3.6 mmol/L 3.5-5.1 [facility] Sodium [Moles/Vol] 139 mmol/L 136-145 [facility] WBC (Bld) [#/Vol] 9.6 10*3/uL 4.4-11.0 [facility] Blood erythrocytes count (nu mber/volume)Ordered By: Dr. Grimes on 09-06-2022 RBC (Bld) [#/Vol] 4.29 10*6/uL 4.2-5.4 [facility] Blood hemoglobin measurement (mass/volume)Ordered By: Dr. Grimes on 09-06-2022 Hemoglobin (Bld) [Mass/Vol] 13.6 g/dL 12.0-15.0 [facility] Blood lymphocytes/100 leukoc ytesOrdered By: Dr. Grimes on 09-06-2022 Lymphocytes/100 WBC (Bld) 27.8 % 19-41 [facility] Blood monocytes/100 leukocyt esOrdered By: Dr. Grimes on 09-06-2022 Monocytes/100 WBC (Bld) 4.3 % 0-10 [facility] Blood platelet mean volumeOr dered By: Dr. Grimes on 09-06-2022 Platelet mean volume (Bld) [Entitic vol] 9.6 fL 6.2-12.0 [facility] Determination of erythrocyte mean corpuscular volume (MCV)Ordered By: Dr. Grimes on 09-06-2022 MCV (RBC) [Entitic vol] 90.2 fL 81-99 [facility] Hematocrit Auto (Bld) [Volum e fraction]Ordered By: Dr. Grimes on 09-06-2022 Hematocrit (Bld) [Volume fraction] 38.7 % 37-47 [facility] Laboratory - Chemistry and C hemistry - challengeOrdered By: Dr. Grimes on 09-06-2022 CO2 [Moles/Vol] 23.0 mmol/L 21.0-32.0 [facility] Urea nitrogen/Creatinine [Mass ratio] 15.9 mg/mg 10-20 [facility] Laboratory - Hematology and Cell countsOrdered By: Dr. Grimes on 09-06-2022 Erythrocyte distribution width (RBC) [Entitic vol] 42.5 fL 35.1-43.9 [facility] Erythrocyte distribution width (RBC) [Ratio] 12.9 % 11.6-14.6 [facility] Immature granulocytes/100 WBC (Bld) 1.100 % 0.0-0.9 [facility] Comment on above: IG% - Immature Granu locytes (promyelocytes, myelocytes and metamyelocytes) > 1% indicates that a LEFT SHIFT is Present. MCH (RBC) [Entitic mass] 31.7 pg 27.0-32.0 [facility] Nucleated RBC/100 WBC (Bld) [Ratio] 0 % 0-5 [facility] MCHC Auto (RBC) [Mass/Vol]Or dered By: Dr. Grimes on 09-06-2022 MCHC (RBC) [Mass/Vol] 35.1 g/dL 32-36 [facility] No Panel InformationOrdered By: Dr. Grimes on 09-06-2022 Estimated GFR (MDRD) Amer 100 mL/min >60 [facility] Comment on above: GFR Calc Estimated GFR (MDRD) Non-Af Amer 82 mL/min >60 [facility] Comment on above: Non- GFR Calc Thyroid Stimulating Hormone (TSH) 1.56 uIU/mL 0.358-3.74 [facility] Platelets bldOrdered By: Dr. Grimes on 09-06-2022 Platelets (Bld) [#/Vol] 190 10*3/uL 150-450 [facility] Serum or plasma calcium sharron urement (mass/volume)Ordered By: Dr. Grimes on 09-06-2022 Calcium [Mass/Vol] 8.7 mg/dL 8.5-10.1 [facility] Serum or plasma creatinine m easurement (mass/volume)Ordered By: Dr. Grimes on 09-06-2022 Creatinine [Mass/Vol] 0.82 mg/dL 0.55-1.02 [facility] Comment on above: The validity of the calculated GFR & GFRAA in patients over 70 years has not been determined. Clinical correlation is essential. Serum or plasma urea nitroge n measurement (mass/volume)Ordered By: Dr. Grimes on 09-06-2022 Urea nitrogen [Mass/Vol] 13 mg/dL 7-18 [facility] Thin prep Papanicolaou smear with manual screeningOrdered By: Dr. Grimes on 09-06-2022 Thin prep Papanicolaou smear with manual screening 6 5-15 [facility] Laboratory - Chemistry and C hemistry - challengeOrdered By: Dr. Guerrero on 08-29-2022 Magnesium [Mass/Vol] 1.7 mg/dL 1.6-2.6 [facility] Basophil percentageOrdered B y: Dr. Grimes on 08-08-2022 Cholesterol [Mass/Vol] 168 mg/dL <200 [facility] Comment on above: <200 mg/dL Desirable 200-240 mg/dL Borderline >240 mg/dL High Risk Triglyceride [Mass/Vol] 176 mg/dL <199 [facility] Comment on above: The drugs N-Acetylcy steine and Metamizole may falsely depress this assay.Serum Triglycerides Reference Interval Normal <150 mg/dL Borderline high 150 - 199 mg/dL High 200 - 499 mg/dL Very High > or = 500 mg/dL Hany 08-08-2022 TAYLER Telephone (AGSPHWG) ---- TORI GRAY ([id number]) 1980 F Date Time Provider Department 08/08/22 [...] Date Reviewed: 07/19/2022 Reviewed by: Karen Bansal APRN.LOOP TACKER - Fully Assessed Reason for Visit: Patient [...] bed with current PAP mask. - Ipratropium Wynne (ATROVENT) 0.03 % nasal spray Use 2 Sprays in the nose every 12 hours. - metroNIDAZOLE (METROGEL) 0.75 % Topical Gel Apply to affected area twice daily. - Natoma-3 Fatty Acids (FISH OIL) 500 mg cap Take 1 capsule by mouth once daily. - blood sugar diagnostic (BLOOD GLUCOSE TEST) test strip Test blood sugar(s) 1 times daily. Dx: Type 2 DM - Controlled E11.9 Insulin: Yes - Lancets lancets Test blood sugar(s) 1 times daily. Dx: Type 2 DM - Controlled E11.9 Insulin: No - Ssacgpvg-Xz-Xtv-Fe- FA tab Take 1 tablet by mouth [...] 05/06/2009 01/23/2010 Routine general medical examination at [facility]*01/23/2010 12/06/2012 Class: Chronic Routine gynecological examination [Z01.419] 01/23/2010 02/22/2014 Class: Chronic Morbid Obesity [E66.01] 01/23/2010 Lumbar Disc Disorder [M51.9] 02/16/2010 Routine general medical examination at [facility]*12/06/2012 02/22/2014 Anxiety [F41.9] 06/07/2014 Type 2 [...] Thyroid Stimulating Hormone (TSH) 3.38 uIU/mL 0.358-3.74 [facility] Serum or plasma cholesterol in HDL measurement (mass/volume)Ordered By: Dr. Grimes on 08-08-2022 Cholesterol in HDL [Mass/Vol] 37 mg/dL >40 [facility] Comment on above: The drugs N-Acetylcy steine and Metamizole may falsely depress this assay. Reference Range HDL <40 mg/dL Low HDL Cholesterol HDL >or= 60 mg/dL High HDL Cholesterol Serum or plasma cholesterol in VLDL measurement (mass/volume)Ordered By: Dr. Grimes on 08-08-2022 Cholesterol in VLDL [Mass/Vol] 35 mg/dL 5-40 [facility] Serum or plasma low density lipoprotein (LDL) cholesterol measurement (mass/volume)Ordered By: Dr. Grimes on 08-08-2022 Cholesterol in LDL [Mass/Vol] 96 mg/dL 0-130 [facility] Whole blood hemoglobin A1c/t otal hemoglobin ratio (mass fraction)Ordered By: Dr. Grimes on 08-08-2022 HbA1c (Bld) [Mass fraction] 5.3 % 3.8-5.6 [facility] Comment on above: Normal < 5.7 % Predi abetic 5.7 - 6.4 % Diabetic >or= 6.5 % Please note range changes. Anuj 07-19-2022 CNCO Letter Text [facility] CNOVon 07-19-2022 CNOV Office Visit (SPAGWO) ---- TORI GRAY ([id number]) 1980 F Date Time Provider Department 07/19/22 [...] The patient is not nervous/anxious. Adelina Marinelli APRN.LOOP TACKER 07/19/2022 10:17 AM Signed [facility] Today's Date: 07/19/2022 Last Visit: 05/24/22 [...] (A) 74 - 99 mg/dL Final Comment: Location:[facility], [address] [place] [address], [facility] The Accu-Chek Inform II glucose meter [...] activity was identified. 07/19/2022 by Adelina Marinelli APRN.[facility] Last Drug screen: Not Applicable Risk Assessment: VAHE-7: (more content not included)... Normal [facility] CNPIliana 07-19-2022 CNPN Telephone (SPAGWO) ---- TORI GRAY ([id number]) 1980 F Date Time Provider Department 07/19/22 [...] year? Yes If yes, When and Where? [employer], currently attending (Medical Records Release needs to [...] Date Reviewed: 07/19/2022 Reviewed by: Adelina Marinelli APRN.LOOP TACKER - Fully Assessed Reason for Visit: Patient [...] bed with current PAP mask. - Ipratropium Wynne (ATROVENT) 0.03 % nasal spray Use 2 Sprays in the nose every 12 hours. - metroNIDAZOLE (METROGEL) 0.75 % Topical Gel Apply to affected area twice daily. - Natoma-3 Fatty Acids (FISH OIL) 500 mg cap Take 1 capsule by mouth once daily. - blood sugar diagnostic (BLOOD GLUCOSE TEST) test strip Test blood sugar(s) 1 times daily. Dx: Type 2 DM - Controlled E11.9 Insulin: Yes - Lancets lancets Test blood sugar(s) 1 times daily. Dx: Type 2 DM - Controlled E11.9 Insulin: No - Otezcwbp-Ay-Nob-Fe- FA tab Take 1 tablet by mouth [...] 05/06/2009 01/23/2010 Routine general medical examination at [facility]*01/23/2010 12/06/2012 Class: Chronic Routine gynecological examination [Z01.419] 01/23/2010 02/22/2014 Class: Chronic Morbid Obesity [E66.01] 01/23/2010 Lumbar Disc Disorder [M51.9] 02/16/2010 Routine general medical examination at [facility]*12/06/2012 02/22/2014 Anxiety [F41.9] 06/07/2014 Type 2 diabetes mellitus with microalbuminuria,*0 07/04/2018 Fatty liver [K76.0] 07/21/2018 LETITIA (obstructive sleep apnea) [G47 (more content not included)... Normal [facility] Absolute lymphocyte counton 06-05-2022 Lymphocytes Auto (Unsp spec) [#/Vol] 2.26 10*3/uL 0.83-4.51 [facility] Work Phone: Absolute reticulocyte counto n 06-05-2022 Reticulocytes (Bld) [#/Vol] 0.00 10*3/uL 0-5 [facility] Work Phone: Basophil percentageon 2021 Basophil percentage 3.4 mg/dL 2.5-4.9 [facility] Work Phone: Bilirubin [Mass/Vol] 0.60 mg/dL 0.20-1.00 [facility] Work Phone: Comment on above: For patients on eltr ombopag therapy, use of Dimension Pollok TBIL is not recommended. Chloride [Moles/Vol] 108 mmol/L 98-107 [facility] Work Phone: Cholesterol [Mass/Vol] 180 mg/dL <200 [facility] Work Phone: Comment on above: <200 mg/dL Desirable 200-240 mg/dL Borderline >240 mg/dL High Risk Glucose [Mass/Vol] 100 mg/dL 74-106 [facility] Work Phone: Comment on above: Fasting Glucose resu lt from 100 to 125 mg/dL suggests IMPAIRED HOMEOSTASIS per A.D.A. criteria. Neutrophils (Bld) [#/Vol] 5.5 10*3/uL 2.0-7.7 [facility] Work Phone: Potassium [Moles/Vol] 3.6 mmol/L 3.5-5.1 [facility] Work Phone: Protein [Mass/Vol] 8.2 g/dL 6.4-8.2 [facility] Work Phone: Sodium [Moles/Vol] 137 mmol/L 136-145 [facility] Work Phone: Triglyceride [Mass/Vol] 418 mg/dL <199 [facility] Work Phone: Comment on above: [...] (Bld) [#/Vol] 8.6 10*3/uL 4.4-11.0 [facility] Work Phone: Bilirubin Test strip Ql (U)o n 06-05-2022 Bilirubin Ql (U) Negative Negative [facility] Work Phone: Blood erythrocytes count (nu mber/volume)on 06-05-2022 RBC (Bld) [#/Vol] 4.49 10*6/uL 4.2-5.4 [facility] Work Phone: Blood hemoglobin measurement (mass/volume)on 06-05-2022 Hemoglobin (Bld) [Mass/Vol] 14.0 g/dL 12.0-15.0 [facility] Work Phone: Blood platelet mean volumeon 06-05-2022 Platelet mean volume (Bld) [Entitic vol] 9.2 fL 6.2-12.0 [facility] Work Phone: Determination of erythrocyte mean corpuscular volume (MCV)on 06-05-2022 MCV (RBC) [Entitic vol] 92.7 fL 81-99 [facility] Work Phone: Direct bilirubinon Bilirubin.direct [Mass/Vol] 0.11 mg/dL 0.00-0.30 [facility] Work Phone: Hematocrit Auto (Bld) [Volum e fraction]on 06-05-2022 Hematocrit (Bld) [Volume fraction] 41.6 % 37-47 [facility] Work Phone: Ketones Test strip Ql (U)on 06-05-2022 Ketones Ql (U) Negative Negative [facility] Work Phone: Laboratory - Chemistry and C hemistry - challengeon 06-05-2022 ALP [Catalytic activity/Vol] 73 U/L 45-117 [facility] Work Phone: ALT [Catalytic activity/Vol] 24 U/L 13-56 [facility] Work Phone: Cholesterol.total/Choles terol in HDL [Mass ratio] 5.50 {ratio} [facility] Work Phone: CO2 [Moles/Vol] 25.0 mmol/L 21.0-32.0 [facility] Work Phone: Globulin (S) [Mass/Vol] 4.1 g/dL 2.2-4.2 [facility] Work Phone: Urea nitrogen/Creatinine [Mass ratio] 16.6 mg/mg 10-20 [facility] Work Phone: Laboratory - Hematology and Cell countson 06-05-2022 Erythrocyte distribution width (RBC) [Entitic vol] 44.2 fL 35.1-43.9 [facility] Work Phone: Erythrocyte distribution width (RBC) [Ratio] 13.2 % 11.6-14.6 [facility] Work Phone: MCH (RBC) [Entitic mass] 31.2 pg 27.0-32.0 [facility] Work Phone: Nucleated RBC/100 WBC (Bld) [Ratio] 0 % 0-5 [facility] Work Phone: MCHC Auto (RBC) [Mass/Vol]on 06-05-2022 MCHC (RBC) [Mass/Vol] 33.7 g/dL 32-36 [facility] Work Phone: Nitrite Test strip Ql (U)on 06-05-2022 Nitrite Ql (U) Negative Negative [facility] Work Phone: No Panel Informationon 06-05 Estimated GFR (MDRD) Amer 115 mL/min >60 [facility] Work Phone: Comment on above: GFR Calc Estimated GFR (MDRD) Non-Af Amer 95 mL/min >60 [facility] Work Phone: Comment on above: Non- GFR Calc Platelets bldon 06-05-2022 Platelets (Bld) [#/Vol] 200 10*3/uL 150-450 [facility] Work Phone: Protein Test strip Ql (U)on 06-05-2022 Protein Ql (U) 15 mg/dl Negative [facility] Work Phone: Segmented neutrophils/100 WB C Auto (Bld)on 06-05-2022 Segmented neutrophils/100 WBC (Bld) 64.3 % 47-70 [facility] Work Phone: Serum or plasma albumin sharron urement (mass/volume)on 06-05-2022 Albumin [Mass/Vol] 4.1 g/dL 3.2-5.0 [facility] Work Phone: Serum or plasma albumin/glob ulin mass ratioon 06-05-2022 Albumin/Globulin [Mass ratio] 1.0 {ratio} 0.9-2.4 [facility] Work Phone: Serum or plasma calcium sharron urement (mass/volume)on 06-05-2022 Calcium [Mass/Vol] 8.7 mg/dL 8.5-10.1 [facility] Work Phone: Serum or plasma cholesterol in HDL measurement (mass/volume)on 06-05-2022 Cholesterol in HDL [Mass/Vol] 33 mg/dL >40 [facility] Work Phone: Comment on above: The drugs N-Acetylcy steine and Metamizole may falsely depress this assay. Reference Range HDL <40 mg/dL Low HDL Cholesterol HDL >or= 60 mg/dL High HDL Cholesterol Serum or plasma cholesterol in VLDL measurement (mass/volume)on 06-05-2022 Cholesterol in VLDL [Mass/Vol] TNP [facility] Work Phone: Comment on above: Test not performed Serum or plasma creatinine m easurement (mass/volume)on 06-05-2022 Creatinine [Mass/Vol] 0.72 mg/dL 0.55-1.02 [facility] Work Phone: Comment on above: The validity of the calculated GFR & GFRAA in patients over 70 years has not been determined. Clinical correlation is essential. Serum or plasma low density lipoprotein (LDL) cholesterol measurement (mass/volume)on 06-05-2022 Cholesterol in LDL [Mass/Vol] TNP [facility] Work Phone: Comment on above: Test not performed Serum or plasma urea nitroge n measurement (mass/volume)on 06-05-2022 Urea nitrogen [Mass/Vol] 12 mg/dL 7-18 [facility] Work Phone: Serum or plasma uric acid me asurement (mass/volume)on 06-05-2022 Urate [Mass/Vol] 5.6 mg/dL 2.6-6.0 [facility] Work Phone: Comment on above: The drugs N-Acetylcy steine and Metamizole may falsely depress this assay. Thin prep Papanicolaou smear with manual screeningon 06-05-2022 Thin prep Papanicolaou smear with manual screening 14 U/L 15-37 [facility] Work Phone: Thin prep Papanicolaou smear with manual screening 4 5-15 [facility] Work Phone: Thin prep Papanicolaou smear with manual screening 152 U/L 84-246 [facility] Work Phone: Urine blood detectionon 08-0 RBC Ql (U) Negative Negative [facility] Work Phone: Urine clarityon 06-05-2022 Clarity (U) Sl. Cloudy Clear [facility] Work Phone: Urine color determinationon 06-05-2022 Color (U) Yellow Yellow [facility] Work Phone: Urine glucose detectionon Glucose Ql (U) Normal mg/dl Normal [facility] Work Phone: Urine leukocyte esterase det ection by dipstickon 06-05-2022 Leukocyte esterase Test strip Ql (U) 500 /ul Negative [facility] Work Phone: Urine pHon 06-05-2022 pH (U) 5.0 [pH] 5.0 - 8.0 [facility] Work Phone: Urine specific gravity measu rementon 06-05-2022 Specific gravity (U) [Rel density] 1.020 1.002-1.030 [facility] Work Phone: Urobilinogen Auto test strip Ql (U)on 06-05-2022 Urobilinogen Ql (U) Normal mg/dl Normal [facility] Work Phone: CNOVon 05-24-2022 CNOV Office Visit (SPAGWO) ---- TORI GRAY ([id number]) 1980 F Date Time Provider Department 05/24/22 [...] The patient is not nervous/anxious. Adelina Marinelli APRN.LOOP TACKER 05/24/2022 10:08 PM Signed [facility] General Today's Date: 05/24/2022 Last Visit: [...] with some (more content not included)... Normal [facility] TOR[facility] G[facility] ([id number]) 1980 F Date Time Provider Department 05/11/22 [...] bed with current PAP mask. - Ipratropium Wynne (ATROVENT) 0.03 % nasal spray Use 2 Sprays in the nose every 12 hours. - metroNIDAZOLE (METROGEL) 0.75 % Topical Gel Apply to affected area twice daily. - Natoma-3 Fatty Acids (FISH OIL) 500 mg cap Take 1 capsule by mouth once daily. - blood sugar diagnostic (BLOOD GLUCOSE TEST) test strip Test blood sugar(s) 1 times daily. Dx: Type 2 DM - Controlled E11.9 Insulin: Yes - Lancets lancets Test blood sugar(s) 1 times daily. Dx: Type 2 DM - Controlled E11.9 Insulin: No - Wockwpmk-Xa-Kxe-Fe- FA ( FORMULA) ORAL Tab Take 1 [...] 05/06/2009 01/23/2010 Routine general medical examination at [facility]*01/23/2010 12/06/2012 Class: Chronic Routine gynecological examination [Z01.419] 01/23/2010 02/22/2014 Class: Chronic Morbid Obesity [E66.01] 01/23/2010 Lumbar Disc Disorder [M51.9] 02/16/2010 Routine general medical examination at [facility]*12/06/2012 02/22/2014 Anxiety [F41.9] 06/07/2014 Type 2 diabetes mellitus with microalbuminuria,*0 07/04/2018 Fatty liver [K76.0] 07/21/2018 LETITIA (obstructive sleep apnea) [G47.33] 07/21/2018 Microalbuminuria [R80.9] 09/30/2018 Obesity, Class III, BMI >= 40 [E66.01] 11/26/2019 Prolonged Q-T interval on ECG [R94.31] 03/31/2020 Encounter Status:Closed by LIVIA LUNA on 05/11/22 Normal [facility] GLUCOSE, BLOOD (POC)on 05-10 Glucose [Mass/Vol] 104 mg/dL Abnormal 74 - 99 mg/dL [facility] CNCOon 03-29-2022 CNCO Letter Text Normal [facility] CNOVon 03-29-2022 CNOV Office Visit (SPAGWO) ---- TORI GRAY ([id number]) 1980 F Date Time Provider Department 03/29/22 11:00 AM ELLE RASHEED During your visit today, we recorded the following information about you: Pulse Respiration Normal [facility] CNPNon 03-29-2022 CNPN Telephone (SPAGWO) ---- TORI GRAY ([id number]) 1980 F Date Time Provider Department 03/29/22 [...] bed with current PAP mask. - Ipratropium Wynne (ATROVENT) 0.03 % nasal spray Use 2 Sprays in the nose every 12 hours. - metroNIDAZOLE (METROGEL) 0.75 % Topical Gel Apply to affected area twice daily. - Natoma-3 Fatty Acids (FISH OIL) 500 mg cap Take 1 capsule by mouth once daily. - blood sugar diagnostic (BLOOD GLUCOSE TEST) test strip Test blood sugar(s) 1 times daily. Dx: Type 2 DM - Controlled E11.9 Insulin: Yes - Lancets lancets Test blood sugar(s) 1 times daily. Dx: Type 2 DM - Controlled E11.9 Insulin: No - Pcojzqgh-At-Cqg-Fe- FA ( FORMULA) ORAL Tab Take 1 [...] 05/06/2009 01/23/2010 Routine general medical examination at [facility]*01/23/2010 12/06/2012 Class: Chronic Routine gynecological examination [Z01.419] 01/23/2010 02/22/2014 Class: Chronic Morbid Obesity [E66.01] 01/23/2010 Lumbar Disc Disorder [M51.9] 02/16/2010 Routine general medical examination at [facility]*12/06/2012 02/22/2014 Anxiety [F41.9] 06/07/2014 Type 2 diabetes mellitus with microalbuminuria,*0 07/04/2018 Fatty liver [K76.0] 07/21/2018 LETITIA (obstructive sleep apnea) [G47.33] 07/21/2018 Microalbuminuria [R80.9] 09/30/2018 Obesity, Class III, BMI >= 40 [E66.01] 11/26/2019 Prolo (more content not included)... Normal [facility] Basophil percentageon 2021 Cholesterol [Mass/Vol] 178 mg/dL <200 [facility] Comment on above: <200 mg/dL Desirable 200-240 mg/dL Borderline >240 mg/dL High Risk Triglyceride [Mass/Vol] 183 mg/dL C [facility] Comment on above: The drugs N-Acetylcy steine and Metamizole may falsely depress this assay.Serum Triglycerides Reference Interval Normal <150 mg/dL Borderline high 150 - 199 mg/dL High 200 - 499 mg/dL Very High > or = 500 mg/dL Bilirubin [Mass/Vol] 0.30 mg/dL 0.20-1.00 [facility] Work Phone: Comment on above: For patients on eltr ombopag therapy, use of Dimension [place] TBIL is not recommended. Chloride [Moles/Vol] 109 mmol/L 98-107 [facility] Work Phone: Glucose [Mass/Vol] 126 mg/dL 74-106 [facility] Work Phone: Comment on above: Fasting Glucose resu lt greater than or equal to 126 mg/dL suggests DIABETES MELLITUS per A.D.A. criteria. Potassium [Moles/Vol] 4.1 mmol/L 3.5-5.1 [facility] Work Phone: Protein [Mass/Vol] 8.4 g/dL 6.4-8.2 [facility] Work Phone: Sodium [Moles/Vol] 136 mmol/L 136-145 [facility] Work Phone: WBC (Bld) [#/Vol] 9.6 10*3/uL 4.4-11.0 [facility] Work Phone: Blood erythrocytes count (nu mber/volume)on 02-07-2022 RBC (Bld) [#/Vol] 4.63 10*6/uL 4.2-5.4 [facility] Work Phone: Blood hemoglobin measurement (mass/volume)on 02-07-2022 Hemoglobin (Bld) [Mass/Vol] 14.2 g/dL 12.0-15.0 [facility] Work Phone: Blood platelet mean volumeon 02-07-2022 Platelet mean volume (Bld) [Entitic vol] 9.5 fL 6.2-12.0 [facility] Work Phone: Determination of erythrocyte mean corpuscular volume (MCV)on 02-07-2022 MCV (RBC) [Entitic vol] 91.6 fL 81-99 [facility] Work Phone: Hematocrit Auto (Bld) [Volum e fraction]on 02-07-2022 Hematocrit (Bld) [Volume fraction] 42.4 % 37-47 [facility] Work Phone: LIPID PANEL (OUTSIDE)on VLDL Cholesterol 37 [facility] Laboratory - Chemistry and C hemistry - challengeon 02-07-2022 ALP [Catalytic activity/Vol] 87 U/L 45-117 [facility] Work Phone: ALT [Catalytic activity/Vol] 29 U/L 13-56 [facility] Work Phone: CO2 [Moles/Vol] 23.0 mmol/L 21.0-32.0 [facility] Work Phone: Globulin (S) [Mass/Vol] 4.3 g/dL 2.2-4.2 [facility] Work Phone: Magnesium [Mass/Vol] 1.7 mg/dL 1.6-2.6 [facility] Work Phone: Urea nitrogen/Creatinine [Mass ratio] 15.1 mg/mg 10-20 [facility] [facility] Work Phone: Laboratory - Hematology and Cell countson 02-07-2022 Erythrocyte distribution width (RBC) [Entitic vol] 43.8 fL 35.1-43.9 [facility] Work Phone: Erythrocyte distribution width (RBC) [Ratio] 13.2 % 11.6-14.6 [facility] Work Phone: MCH (RBC) [Entitic mass] 30.7 pg 27.0-32.0 [facility] Work Phone: MCHC Auto (RBC) [Mass/Vol]on 02-07-2022 MCHC (RBC) [Mass/Vol] 33.5 g/dL 32-36 [facility] Work Phone: MICROALBUMIN/CREATININE UR W RATIO (EXTERNAL)on 02-07-2022 Albumin/Creat Ratio 153.4 [facility] Creatinine Urine 189 [facility] Microalbumin, Random urine 290 [facility] No Panel Informationon 02-07 Urine Microalbumin/Creatinine Ratio 153.4 mg/g CRE <30 [facility] Work Phone: Estimated GFR (MDRD) Amer 114 mL/min >60 [facility] Work Phone: Comment on above: GFR Calc Estimated GFR (MDRD) Non-Af Amer 94 mL/min >60 [facility] Work Phone: Comment on above: Non- GFR Calc Thyroid Stimulating Hormone (TSH) 2.76 uIU/mL 0.358-3.74 [facility] Work Phone: Platelets bldon 02-07-2022 Platelets (Bld) [#/Vol] 223 10*3/uL 150-450 [facility] Work Phone: Serum or plasma albumin sharron urement (mass/volume)on 02-07-2022 Albumin [Mass/Vol] 4.1 g/dL 3.2-5.0 [facility] Work Phone: Serum or plasma albumin/glob ulin mass ratioon 02-07-2022 Albumin/Globulin [Mass ratio] 1.0 {ratio} 0.9-2.4 [facility] Work Phone: Serum or plasma calcium sharron urement (mass/volume)on 02-07-2022 Calcium [Mass/Vol] 8.8 mg/dL 8.5-10.1 [facility] Work Phone: Serum or plasma cholesterol in HDL measurement (mass/volume)on 02-07-2022 Cholesterol in HDL [Mass/Vol] 37 mg/dL [facility] Comment on above: The drugs N-Acetylcy steine and Metamizole may falsely depress this assay. Reference Range HDL <40 mg/dL Low HDL Cholesterol HDL >or= 60 mg/dL High HDL Cholesterol Serum or plasma cholesterol in VLDL measurement (mass/volume)on 02-07-2022 Cholesterol in VLDL [Mass/Vol] 37 mg/dL 5-40 [facility] Work Phone: Serum or plasma creatinine m easurement (mass/volume)on 02-07-2022 Creatinine [Mass/Vol] 0.73 mg/dL 0.55-1.02 [facility] Work Phone: Comment on above: The validity of the calculated GFR & GFRAA in patients over 70 years has not been determined. Clinical correlation is essential. Serum or plasma low density lipoprotein (LDL) cholesterol measurement (mass/volume)on 02-07-2022 Cholesterol in LDL [Mass/Vol] 104 mg/dL 0-130 [facility] Serum or plasma urea nitroge n measurement (mass/volume)on 02-07-2022 Urea nitrogen [Mass/Vol] 11 mg/dL 7-18 [facility] Work Phone: TSH (EXTERNAL)on 02-07-2022 TSH 2.76 IU/ml 0.2 - 5.6 IU/ml [facility] Thin prep Papanicolaou smear with manual screeningon 02-07-2022 Thin prep Papanicolaou smear with manual screening 290.0 mg/L NO RANGE EST. [facility] Work Phone: Thin prep Papanicolaou smear with manual screening 13 U/L 15-37 [facility] Work Phone: Thin prep Papanicolaou smear with manual screening 4 5-15 [facility] Work Phone: Urine creatinine measurement (mass/volume)on 02-07-2022 Creatinine (U) [Mass/Vol] 189.00 mg/dL NO RANGE EST. [facility] Work Phone: Whole blood hemoglobin A1c/t otal hemoglobin ratio (mass fraction)on 02-07-2022 HbA1c (Bld) [Mass fraction] 5.1 % 3.8-5.6 [facility] Comment on above: Normal < 5.7 % Predi abetic 5.7 - 6.4 % Diabetic >or= 6.5 % Please note range changes. Hany 01-29-2022 CNPN Telephone ([id number]) ---- TORI GRAY ([id number]) 1980 F Date Time Provider Department 01/29/22 [...] bed with current PAP mask. - Ipratropium Wynne (ATROVENT) 0.03 % nasal spray Use 2 Sprays in the nose every 12 hours. - metroNIDAZOLE (METROGEL) 0.75 % Topical Gel Apply to affected area twice daily. - Natoma-3 Fatty Acids (FISH OIL) 500 mg cap Take 1 capsule by mouth once daily. - blood sugar diagnostic (BLOOD GLUCOSE TEST) test strip Test blood sugar(s) 1 times daily. Dx: Type 2 DM - Controlled E11.9 Insulin: Yes - Lancets lancets Test blood sugar(s) 1 times daily. Dx: Type 2 DM - Controlled E11.9 Insulin: No - Gmjiggka-Er-Dhu-Fe- FA ( FORMULA) ORAL Tab Take 1 [...] 05/06/2009 01/23/2010 Routine general medical examination at [facility]*01/23/2010 12/06/2012 Class: Chronic Routine gynecological examination [Z01.419] 01/23/2010 02/22/2014 Class: Chronic Morbid Obesity [E66.01] 01/23/2010 Lumbar Disc Disorder [M51.9] 02/16/2010 Routine general medical examination at [facility]*12/06/2012 02/22/2014 Anxiety [F41.9] 06/07/2014 Type 2 [...] RNA ALLYSON+probe Ql (Unsp spec) Not detected [facility] Work Phone: Office Visit: Jojo Removal, possible other optionson 09-09-2017 Documentation of current medications (procedure) Done Invalid Interpretation Code [facility] Fall risk assessment No Invalid Interpretation Code [facility] Tobacco smoking status NHIS Never Invalid Interpretation Code [facility] Tobacco use CPHS Never smoker Invalid Interpretation Code [facility] Office Visit: Spine Visit- L ow back pain BWCon 09-05-2017 Documentation of current medications (procedure) Done Invalid Interpretation Code [facility] Work Phone: Office Visit: Spine Visit- L ow back painon 09-03-2017 Documentation of current medications (procedure) Done Invalid Interpretation Code [facility] Work Phone: Office Visit: Spine Visit- L ow back [facility] 08-22-2017 Documentation of current medications (procedure) Done Invalid Interpretation Code [facility] Work Phone: Office Visiton 08-09-2017 Dietary management education, guidance, and counseling (procedure) yes Invalid Interpretation Code [facility] Work Phone: Tobacco smoking status NHIS Never Invalid Interpretation Code [facility] Work Phone: Tobacco use CPHS Never smoker Invalid Interpretation Code [facility] Work Phone: Office Visit: BWC: low back painon 05-02-2017 Fall risk assessment No Invalid Interpretation Code [facility] Work Phone: Office Visit: Jojo Robles, possible other optionson 06-04-2014 General categories [Interpretation] of Cervical or vaginal smear or scraping by Cyto stain Normal Invalid Interpretation Code [facility] Vital Signs Date Time Vital Sign Value Performing Clinician Facility 07-15-2025 09:26-0400 Body mass index (BMI) [Ratio] 42.13 kg/m2 Lubna Suppan [employer] Work Phone: [facility] 07-15-2025 09:26-0400 Body temperature 97.59 [degF] Lubna Suppan [employer] Work Phone: [facility] 07-15-2025 09:26-0400 Body weight 122.02 kg Lubna Suppan [employer] Work Phone: [facility] 07-15-2025 09:26-0400 Diastolic blood pressure 76 mm[Hg] Lubna Suppan [employer] Work Phone: [facility] 07-15-2025 09:26-0400 Heart rate 73 /min Lubna Suppan [employer] Work Phone: [facility] 07-15-2025 09:26-0400 SaO2% (BldA) [Mass fraction] 98 % Lubna Suppan [employer] Work Phone: [facility] 07-15-2025 09:26-0400 Systolic blood pressure 128 mm[Hg] Lubna Suppan [employer]TER [employer] Work Phone: [facility] 07-07-2025 07:15-0400 SaO2% (BldA) [Mass fraction] 96 % Dr. Ivette Grimes MD Work Phone: [facility] 07-07-2025 06:00-0400 Diastolic blood pressure 74 mm[Hg] Dr. Ivette Grimes MD Work Phone: [facility] 07-07-2025 06:00-0400 Heart rate 61 /min Dr. Ivette Grimes MD Work Phone: [facility] 07-07-2025 06:00-0400 Respiratory rate 18 /min Dr. Ivette Grimes MD Work Phone: 8(128)442-941855 [place] [address] 07-07-2025 06:00-0400 Systolic blood pressure 117 mm[Hg] Dr. Ivette Grimes MD Work Phone: 2(794)857-984155 [place] [address] 07-07-2025 05:33-0400 Body mass index (BMI) [Ratio] 44.1 kg/m2 Dr. Ivette Grimes MD Work Phone: 2(363)975-567755 [place] [address] 07-07-2025 05:33-0400 Body weight 127.[address] Ivette Grimes MD Work Phone: 4(594)062-194355 [place] [address] 07-07-2025 04:00-0400 Body temperature 98.1 [degF] Dr. Ivette Grimes MD Work Phone: 4(284)928-313455 [place] [address] 07-06-2025 10:30-0400 Body height 170.[address] Ivette Grimes MD Work Phone: 9(363)952-114255 [place] [address] 07-05-2025 23:35-0400 Body height 170.[address] Ivette Grimes MD Work Phone: 1(238)854-855355 [place] [address] 07-05-2025 23:35-0400 Body mass index (BMI) [Ratio] 44.7 kg/m2 Dr. Ivette Grimes MD Work Phone: 8(899)799-541355 [place] [address] 07-05-2025 23:35-0400 Body weight 129.[address] Ivette Grimes MD Work Phone: 1(991)953-822055 [place] [address] 07-05-2025 23:00-0400 Diastolic blood pressure 50 mm[Hg] Dr. Ivette Grimes MD Work Phone: 9(174)806-882855 [place] [address] 07-05-2025 23:00-0400 Heart rate 75 /min Dr. Ivette Grimes MD Work Phone: 6(375)101-516055 [place] [address] 07-05-2025 23:00-0400 Respiratory rate 27 /min Dr. Ivette Grimes MD Work Phone: 5(716)697-765855 [place] [address] 07-05-2025 23:00-0400 SaO2% (BldA) [Mass fraction] 94 % Dr. Ivette Grimes MD Work Phone: 5(834)254-032055 [place] [address] 07-05-2025 23:00-0400 Systolic blood pressure 102 mm[Hg] Dr. Ivette Grimes MD Work Phone: 5(058)731-612555 [place] [address] 07-05-2025 22:00-0400 Body temperature 100.3 [degF] Dr. Ivette Grimes MD Work Phone: 4(211)807-252055 [place] [address] 06-23-2025 09:45-0400 Body temperature 96.6 [degF] Dr. Ivette Grimes MD Work Phone: 6(847)280-578055 [place] [address] 06-23-2025 09:45-0400 Diastolic blood pressure 60 mm[Hg] Dr. Ivette Grimes MD Work Phone: 7(258)590-155055 [place] [address] 06-23-2025 09:45-0400 Heart rate 65 /min Dr. Ivette Grimes MD Work Phone: 1(960)566-305755 [place] [address] 06-23-2025 09:45-0400 Respiratory rate 16 /min Dr. Ivette Grimes MD Work Phone: 1(186)403-722255 [place] [address] 06-23-2025 09:45-0400 SaO2% (BldA) [Mass fraction] 95 % Dr. Ivette Grimes MD Work Phone: 0(733)803-832655 [place] [address] 06-23-2025 09:45-0400 Systolic blood pressure 112 mm[Hg] Dr. Ivette Grimes MD Work Phone: 3(576)279-895455 [place] [address] 06-23-2025 09:15-0400 Inhaled oxygen flow rate 2 L/min Dr. Ivette Grimes MD Work Phone: 8(183)768-124055 [place] [address] 06-23-2025 06:40-0400 Body height 170.[address] Ivette Grimes MD Work Phone: 9(123)316-843955 [place] [address] 06-23-2025 06:40-0400 Body mass index (BMI) [Ratio] 43.4 kg/m2 Dr. Ivette Grimes MD Work Phone: 1(894)757-086555 [place] [address] 06-23-2025 06:40-0400 Body weight [address] Ivette Grimes MD Work Phone: [facility] 06-07-2025 18:27-0400 Body mass index (BMI) [Ratio] 44.26 kg/m2 Ivette Grimes MD Work Phone: [facility] 06-07-2025 18:27-0400 Body weight 128.19 kg Ivette Grimes MD Work Phone: [facility] 06-07-2025 18:27-0400 Diastolic blood pressure 80 mm[Hg] Ivette Grimes MD Work Phone: [facility] 06-07-2025 18:27-0400 Heart rate 78 /min Ivette Grimes MD Work Phone: [facility] 06-07-2025 18:27-0400 SaO2% (BldA) [Mass fraction] 98 % Ivette Grimes MD Work Phone: [facility] 06-07-2025 18:27-0400 Systolic blood pressure 132 mm[Hg] Ivette Grimes MD Work Phone: [facility] 05-06-2025 10:04-0400 Body height 170.[address] Ivette Grimes MD Work Phone: [facility] 05-06-2025 10:04-0400 Body mass index (BMI) [Ratio] 43 kg/m2 Dr. Ivette Grimes MD Work Phone: [facility] 05-06-2025 10:04-0400 Body weight 124.[address] Ivette Grimes MD Work Phone: [facility] 03-22-2025 09:08-0400 Body height 170.[address] Ivette Grimes MD Work Phone: [facility] 01-22-2025 15:43-0400 Body mass index (BMI) [Ratio] 44.17 kg/m2 Ivette Grimes MD Work Phone: [facility] 01-22-2025 15:43-0400 Body weight 127.91 kg Ivette Grimes MD Work Phone: [facility] 01-22-2025 15:43-0400 Diastolic blood pressure 72 mm[Hg] Ivette Grimes MD Work Phone: [facility] 01-22-2025 15:43-0400 Heart rate 77 /min Ivette Grimes MD Work Phone: [facility] 01-22-2025 15:43-0400 SaO2% (BldA) [Mass fraction] 97 % Ivette Grimes MD Work Phone: [facility] 01-22-2025 15:43-0400 Systolic blood pressure 122 mm[Hg] Ivette Grimes MD Work Phone: [facility] 12-11-2024 11:08-0500 Body mass index (BMI) [Ratio] 43.4 kg/m2 Jenni Albaradohof [employer]TER [employer] Work Phone: [facility] 12-11-2024 11:08-0500 Body temperature 97.81 [degF] Jenni Albaradohof [employer]TER [employer]ER Work Phone: [facility] 12-11-2024 11:08-0500 Body weight 125.7 kg Jennifrank Albaradohof [employer]TER F[employer]ER[employer]ER Work Phone: [facility] 12-11-2024 11:08-0500 Diastolic blood pressure 74 mm[Hg] Jenni Albaradohof FILTER F[employer]ER[employer] T[employer]ER Work Phone: [facility] 12-11-2024 11:08-0500 Heart rate 72 /min Jenni Albaradohof FILTER F[employer]ER[employer]ER Work Phone: [facility] 12-11-2024 11:08-0500 Respiratory rate 16 /min Jenni Verenahof FILTER F[employer]ER[employer] T[employer]ER Work Phone: [facility] 12-11-2024 11:08-0500 SaO2% (BldA) [Mass fraction] 99 % Jenni Albaradohof FILTER F[employer]ER[employer]ER Work Phone: [facility] 12-11-2024 11:08-0500 Systolic blood pressure 138 mm[Hg] Jenni Tannhof [employer]TER [employer]ER[employer]ER Work Phone: [facility] 11-11-2024 12:34-0500 Heart rate 74 /min Dr. Ivette Grimes MD Work Phone: 3(945)540-064355 [place] [address] 11-11-2024 12:34-0500 Respiratory rate 20 /min Dr. Ivette Grimes MD Work Phone: 4(925)391-457855 [place] [address] 11-11-2024 12:34-0500 SaO2% (BldA) [Mass fraction] 100 % Dr. Ivette Grimes MD Work Phone: 4(708)064-359455 [place] [address] 11-11-2024 11:00-0500 Diastolic blood pressure 60 mm[Hg] Dr. Ivette Grimes MD Work Phone: 7(381)392-703455 [place] [address] 11-11-2024 11:00-0500 Systolic blood pressure 108 mm[Hg] Dr. Ivette Grimes MD Work Phone: 1(395)965-527955 [place] [address] 11-11-2024 05:55-0500 Body height 170.[address] Ivette Grimes MD Work Phone: 5(636)652-929955 [place] [address] 11-11-2024 05:55-0500 Body mass index (BMI) [Ratio] 45.2 kg/m2 Dr. Ivette Grimes MD Work Phone: 5(499)504-619855 [place] [address] 11-11-2024 05:55-0500 Body temperature 97.5 [degF] Dr. Ivette Grimes MD Work Phone: 3(605)360-059655 [place] [address] 11-11-2024 05:55-0500 Body weight [address] Ivette Grimes MD Work Phone: 9(065)409-313555 [place] [address] 10-16-2024 21:50-0500 Body temperature 98 [degF] Dr. Ivette Grimes MD Work Phone: 2(391)549-079255 [place] [address] 10-16-2024 21:50-0500 Diastolic blood pressure 72 mm[Hg] Dr. Ivette Grimes MD Work Phone: 4(704)157-666955 [place] [address] 10-16-2024 21:50-0500 Heart rate 60 /min Dr. Ivette Grimes MD Work Phone: 5(405)729-473055 [place] [address] 10-16-2024 21:50-0500 Respiratory rate 16 /min Dr. Ivette Grimes MD Work Phone: [facility] 10-16-2024 21:50-0500 SaO2% (BldA) [Mass fraction] 95 % Dr. Ivette Grimes MD Work Phone: [facility] 10-16-2024 21:50-0500 Systolic blood pressure 137 mm[Hg] Dr. Ivette Grimes MD Work Phone: [facility] 10-16-2024 20:23-0500 Body mass index (BMI) [Ratio] 43 kg/m2 Dr. Ivette Grimes MD Work Phone: [facility] 10-16-2024 20:23-0500 Body weight 124.[address] Ivette Grimes MD Work Phone: [facility] 09-03-2024 12:51-0400 Body height 170.2 cm Fatuma Robertser PA-C Work Phone: [facility] 09-03-2024 12:51-0400 Body mass index (BMI) [Ratio] 43.8 kg/m2 Fatuma Queener PA-C Work Phone: [facility] 09-03-2024 12:51-0400 Body weight 126.85 kg Fatuma Queener PA-C Work Phone: [facility] 09-03-2024 12:51-0400 Diastolic blood pressure 71 mm[Hg] Fatuma Robertser PA-C Work Phone: [facility] 09-03-2024 12:51-0400 Heart rate 67 /min Fatuma Queener PA-C Work Phone: [facility] 09-03-2024 12:51-0400 SaO2% (BldA) [Mass fraction] 97 % Fatuma Robertser PA-C Work Phone: [facility] 09-03-2024 12:51-0400 Systolic blood pressure 153 mm[Hg] Fatuma Robertser PA-C Work Phone: [facility] 08-05-2024 08:04-0400 Body mass index (BMI) [Ratio] 42.81 kg/m2 Ivette Grimes MD Work Phone: [facility] 08-05-2024 08:04-0400 Body weight 131.5 kg Ivette Grimes MD Work Phone: [facility] 08-05-2024 08:04-0400 Diastolic blood pressure 62 mm[Hg] Ivette Grimes MD Work Phone: [facility] 08-05-2024 08:04-0400 Heart rate 56 /min Ivette Grimes MD Work Phone: [facility] 08-05-2024 08:04-0400 SaO2% (BldA) [Mass fraction] 96 % Ivette Grimes MD Work Phone: [facility] 08-05-2024 08:04-0400 Systolic blood pressure 114 mm[Hg] Ivette Grimes MD Work Phone: [facility] 07-03-2024 15:29-0400 Body mass index (BMI) [Ratio] 41.94 kg/m2 Ivette Grimes MD Work Phone: [facility] 07-03-2024 15:29-0400 Body weight 128.82 kg Ivette Grimes MD Work Phone: [facility] 07-03-2024 15:29-0400 Diastolic blood pressure 82 mm[Hg] Ivette Grimes MD Work Phone: [facility] 07-03-2024 15:29-0400 Heart rate 78 /min Ivette Grimes MD Work Phone: [facility] 07-03-2024 15:29-0400 SaO2% (BldA) [Mass fraction] 98 % Ivette Grimes MD Work Phone: [facility] 07-03-2024 15:29-0400 Systolic blood pressure 152 mm[Hg] Ivette Grimes MD Work Phone: [facility] 04-02-2024 12:46-0400 Body height 175.3 cm Fatuma Beckford PA-C Work Phone: [facility] 04-02-2024 12:46-0400 Body mass index (BMI) [Ratio] 41.02 kg/m2 Fatuma Beckford PA-C Work Phone: [facility] 04-02-2024 12:46-0400 Body weight 126 kg Fatuma Beckford PA-C Work Phone: [facility] 04-02-2024 12:46-0400 Diastolic blood pressure 77 mm[Hg] Fatuma Beckford PA-C Work Phone: [facility] 04-02-2024 12:46-0400 Heart rate 59 /min Fatuma Beckford PA-C Work Phone: [facility] 04-02-2024 12:46-0400 SaO2% (BldA) [Mass fraction] 99 % Fatuma Beckford PA-C Work Phone: [facility] 04-02-2024 12:46-0400 Systolic blood pressure 135 mm[Hg] Fatuma IRENE-C Work Phone: [facility] 02-04-2024 04:03-0400 Body temperature 98 [degF] Dr. Ivette Grimes Work Phone: [facility] 02-04-2024 04:03-0400 Diastolic blood pressure 56 mm[Hg] Dr. Ivette Grimes Work Phone: [facility] 02-04-2024 04:03-0400 Heart rate 59 /min Dr. Ivette Grimes Work Phone: [facility] 02-04-2024 04:03-0400 Respiratory rate 16 /min Dr. Ivette Grimes Work Phone: [facility] 02-04-2024 04:03-0400 SaO2% (BldA) [Mass fraction] 100 % Dr. Ivette Grimes Work Phone: [facility] 02-04-2024 04:03-0400 Systolic blood pressure 107 mm[Hg] Dr. Ivette Grimes Work Phone: [facility] 02-04-2024 01:12-0400 Body height 170.[address] Ivette Grimes Work Phone: [facility] 02-04-2024 01:12-0400 Body mass index (BMI) [Ratio] 43 kg/m2 Dr. Ivette Grimes Work Phone: [facility] 02-04-2024 01:12-0400 Body weight 124.[address] Ivette Grimes Work Phone: [facility] 12-26-2023 10:10-0500 Body height 170.2 cm Fatuma Robertser PA-C Work Phone: [facility] 12-26-2023 10:10-0500 Body weight 123.35 kg Fatuma Robertser PA-C Work Phone: [facility] 12-26-2023 10:10-0500 Diastolic blood pressure 62 mm[Hg] Fatuma Robertser PA-C Work Phone: [facility] 12-26-2023 10:10-0500 Heart rate 68 /min Fatuma Robertser PA-C Work Phone: [facility] 12-26-2023 10:10-0500 Systolic blood pressure 118 mm[Hg] Fatuma Robertser PA-C Work Phone: [facility] 12-10-2023 05:52-0500 Body height 170.[address] Ivette Grimes Work Phone: [facility] 12-10-2023 05:52-0500 Body mass index (BMI) [Ratio] 42.3 kg/m2 Dr. Ivette Grimes Work Phone: [facility] 12-10-2023 05:52-0500 Body temperature 98 [degF] Dr. Ivette Grimes Work Phone: [facility] 12-10-2023 05:52-0500 Body weight 122.[address] Ivette Grimes Work Phone: [facility] 12-10-2023 05:52-0500 Diastolic blood pressure 61 mm[Hg] Dr. Ivette Grimes Work Phone: [facility] 12-10-2023 05:52-0500 Heart rate 68 /min Dr. Ivette Grimes Work Phone: [facility] 12-10-2023 05:52-0500 Respiratory rate 16 /min Dr. Ivette Grimes Work Phone: [facility] 12-10-2023 05:52-0500 SaO2% (BldA) [Mass fraction] 98 % Dr. Ivette Grimes Work Phone: [facility] 12-10-2023 05:52-0500 Systolic blood pressure 108 mm[Hg] Dr. Ivette Grimes Work Phone: [facility] 12-09-2023 17:15-0500 Body weight 122.92 kg Ivette Grimes MD Work Phone: [facility] 12-09-2023 17:15-0500 Diastolic blood pressure 62 mm[Hg] Ivette Grimes MD Work Phone: [facility] 12-09-2023 17:15-0500 Heart rate 60 /min Ivette Grimes MD Work Phone: [facility] 12-09-2023 17:15-0500 SaO2% (BldA) [Mass fraction] 97 % Ivette Grimes MD Work Phone: [facility] 12-09-2023 17:15-0500 Systolic blood pressure 124 mm[Hg] Ivette Grimes MD Work Phone: [facility] 10-27-2023 15:06-0500 Body height 170.18 cm Self Referred [facility] 10-27-2023 15:06-0500 Body mass index (BMI) [Ratio] 43.9 kg/m2 Self Referred [facility] 10-27-2023 15:06-0500 Body temperature 97 [degF] Self Referred [facility] 10-27-2023 15:06-0500 Body weight 127.45 kg Self Referred [facility] 10-27-2023 15:06-0500 Diastolic blood pressure 90 mm[Hg] Self Referred [facility] 10-27-2023 15:06-0500 Heart rate 80 /min Self Referred [facility] 10-27-2023 15:06-0500 Respiratory rate 16 /min Self Referred [facility] 10-27-2023 15:06-0500 SaO2% (BldA) [Mass fraction] 98 % Self Referred [facility] 10-27-2023 15:06-0500 Systolic blood pressure 173 mm[Hg] Self Referred [facility] 08-07-2023 12:17-0400 Body temperature 97.5 [degF] Self Referred [facility] 08-07-2023 12:17-0400 Diastolic blood pressure 75 mm[Hg] Self Referred [facility] 08-07-2023 12:17-0400 Heart rate 53 /min Self Referred [facility] 08-07-2023 12:17-0400 Respiratory rate 14 /min Self Referred [facility] 08-07-2023 12:17-0400 SaO2% (BldA) [Mass fraction] 99 % Self Referred [facility] 08-07-2023 12:17-0400 Systolic blood pressure 119 mm[Hg] Self Referred [facility] 08-07-2023 11:00-0400 Body mass index (BMI) [Ratio] 47.2 kg/m2 Self Referred [facility] 08-05-2023 17:16-0400 Body height 170.18 cm Self Referred [facility] 08-05-2023 17:16-0400 Body weight 136.8 kg Self Referred [facility] 08-05-2023 13:00-0400 Body temperature 97.4 [degF] Dr. Ivette Grimes Work Phone: [facility] 08-05-2023 13:00-0400 Diastolic blood pressure 76 mm[Hg] Dr. Ivette Grimes Work Phone: [facility] 08-05-2023 13:00-0400 Heart rate 58 /min Dr. Ivette Grimes Work Phone: [facility] 08-05-2023 13:00-0400 Respiratory rate 14 /min Dr. Ivette Grimes Work Phone: [facility] 08-05-2023 13:00-0400 SaO2% (BldA) [Mass fraction] 96 % Dr. Ivette Grimes Work Phone: [facility] 08-05-2023 13:00-0400 Systolic blood pressure 156 mm[Hg] Dr. Ivette Grimes Work Phone: [facility] 08-05-2023 11:33-0400 Body mass index (BMI) [Ratio] 47.2 kg/m2 Dr. Ivette Grimes Work Phone: [facility] 08-05-2023 09:51-0400 Body weight 136.[address] Ivette Grimes Work Phone: [facility] 08-05-2023 09:40-0400 Body height 170.[address] Ivette Grimes Work Phone: [facility] 06-07-2023 15:01-0400 Diastolic blood pressure 76 mm[Hg] Ivette Price Jr., MD Work Phone: [facility] 06-07-2023 15:01-0400 Heart rate 75 /min Ivette Price Jr., MD Work Phone: [facility] 06-07-2023 15:01-0400 Respiratory rate 16 /min Ivette Price Jr., MD Work Phone: [facility] 06-07-2023 15:01-0400 SaO2% (BldA) [Mass fraction] 97 % Ivette Price Jr., MD Work Phone: [facility] 06-07-2023 15:01-0400 Systolic blood pressure 138 mm[Hg] Ivette Price Jr., MD Work Phone: [facility] 06-06-2023 09:39-0400 Body weight 132 kg Ivette Grimes MD Work Phone: [facility] 06-06-2023 09:39-0400 Diastolic blood pressure 81 mm[Hg] Ivette Grimes MD Work Phone: [facility] 06-06-2023 09:39-0400 Heart rate 51 /min Ivette Grimes MD Work Phone: [facility] 06-06-2023 09:39-0400 SaO2% (BldA) [Mass fraction] 98 % Ivette Grimes MD Work Phone: [facility] 06-06-2023 09:39-0400 Systolic blood pressure 129 mm[Hg] Ivette Grimes MD Work Phone: [facility] 05-20-2023 22:47-0400 Diastolic blood pressure 88 mm[Hg] Dr. Ivette Grimes Work Phone: [facility] 05-20-2023 22:47-0400 Heart rate 78 /min Dr. Ivette Grimes Work Phone: [facility] 05-20-2023 22:47-0400 Respiratory rate 18 /min Dr. Ivette Grimes Work Phone: [facility] 05-20-2023 22:47-0400 SaO2% (BldA) [Mass fraction] 100 % Dr. Ivette Grimes Work Phone: [facility] 05-20-2023 22:47-0400 Systolic blood pressure 134 mm[Hg] Dr. Ivette Grimes Work Phone: [facility] 05-20-2023 21:28-0400 Body height 170.[address] Ivette Grimes Work Phone: [facility] 05-20-2023 21:28-0400 Body mass index (BMI) [Ratio] 45.4 kg/m2 Dr. Ivette Grimes Work Phone: [facility] 05-20-2023 21:28-0400 Body temperature 97.5 [degF] Dr. Ivette Grimes Work Phone: [facility] 05-20-2023 21:28-0400 Body weight 131.[address] Ivette Grimes Work Phone: [facility] 05-17-2023 10:04-0400 Body height 170.2 cm Fatuma Queener PA-C Work Phone: [facility] 05-17-2023 10:04-0400 Body weight 132 kg Fatuma Queener PA-C Work Phone: [facility] 05-17-2023 10:04-0400 Diastolic blood pressure 70 mm[Hg] Fatuma Queener PA-C Work Phone: [facility] 05-17-2023 10:04-0400 Heart rate 68 /min Fatuma Queener PA-C Work Phone: [facility] 05-17-2023 10:04-0400 SaO2% (BldA) [Mass fraction] 97 % Fatuma Queener PA-C Work Phone: [facility] 05-17-2023 10:04-0400 Systolic blood pressure 123 mm[Hg] Fatuma Queener PA-C Work Phone: [facility] 03-05-2023 12:35-0400 Body temperature 97.81 [degF] Fatuma Queener PA-C Work Phone: [facility] 03-05-2023 12:35-0400 Body weight 130.09 kg Fatuma Robertser PA-C Work Phone: [facility] 03-05-2023 12:35-0400 Diastolic blood pressure 76 mm[Hg] Fatuma Queener PA-C Work Phone: [facility] 03-05-2023 12:35-0400 Heart rate 61 /min Fatuma Queener PA-C Work Phone: [facility] 03-05-2023 12:35-0400 Respiratory rate 16 /min Fatuma Queener PA-C Work Phone: [facility] 03-05-2023 12:35-0400 SaO2% (BldA) [Mass fraction] 98 % Fatuma Queener PA-C Work Phone: [facility] 03-05-2023 12:35-0400 Systolic blood pressure 145 mm[Hg] Fatuma Queener PA-C Work Phone: [facility] 03-05-2023 08:56-0400 Body height 170.2 cm Galina Camacho MD Work Phone: [facility] 03-05-2023 08:56-0400 Body weight 130.18 kg Galina Camacho MD Work Phone: [facility] 03-05-2023 08:56-0400 Diastolic blood pressure 82 mm[Hg] Galina Camacho MD Work Phone: [facility] 03-05-2023 08:56-0400 Systolic blood pressure 122 mm[Hg] Galina Camacho MD Work Phone: [facility] 02-28-2023 14:20-0400 Body weight 131.54 kg Ivette Grimes MD Work Phone: [facility] 02-28-2023 14:20-0400 Diastolic blood pressure 72 mm[Hg] Ivette Grimes MD Work Phone: [facility] 02-28-2023 14:20-0400 Heart rate 79 /min Ivette Grimes MD Work Phone: [facility] 02-28-2023 14:20-0400 SaO2% (BldA) [Mass fraction] 97 % Ivette Grimes MD Work Phone: [facility] 02-28-2023 14:20-0400 Systolic blood pressure 138 mm[Hg] Ivette Grimes MD Work Phone: [facility] 01-31-2023 09:21-0400 Body weight 130.18 kg Ivette Grimes MD Work Phone: [facility] 01-31-2023 09:21-0400 Diastolic blood pressure 82 mm[Hg] Ivette Grimes MD Work Phone: [facility] 01-31-2023 09:21-0400 Heart rate 65 /min Ivette Grimes MD Work Phone: [facility] 01-31-2023 09:21-0400 SaO2% (BldA) [Mass fraction] 98 % Ivette Grimes MD Work Phone: [facility] 01-31-2023 09:21-0400 Systolic blood pressure 120 mm[Hg] Ivette Grimes MD Work Phone: [facility] 01-24-2023 10:23-0400 Heart rate 64 /min Elle Rasheed MD Work Phone: [facility] 01-24-2023 10:23-0400 Respiratory rate 16 /min Elle Rasheed MD Work Phone: [facility] 01-24-2023 10:23-0400 SaO2% (BldA) [Mass fraction] 98 % Elle Rasheed MD Work Phone: [facility] 01-17-2023 11:21-0400 Body height 170.2 cm Ivette Grimes MD Work Phone: [facility] 01-17-2023 11:21-0400 Body weight 128.82 kg Ivette Grimes MD Work Phone: [facility] 01-17-2023 11:21-0400 Diastolic blood pressure 84 mm[Hg] Ivette Grimes MD Work Phone: [facility] 01-17-2023 11:21-0400 Heart rate 70 /min Ivette Grimes MD Work Phone: [facility] 01-17-2023 11:21-0400 SaO2% (BldA) [Mass fraction] 98 % Ivette Grimes MD Work Phone: [facility] 01-17-2023 11:21-0400 Systolic blood pressure 148 mm[Hg] Ivette Grimes MD Work Phone: [facility] 01-04-2023 11:30-0500 Body weight 128.37 kg Ivette Grimes MD Work Phone: [facility] 01-04-2023 11:30-0500 Diastolic blood pressure 78 mm[Hg] Ivette Grimes MD Work Phone: [facility] 01-04-2023 11:30-0500 Heart rate 85 /min Ivette Grimes MD Work Phone: [facility] 01-04-2023 11:30-0500 SaO2% (BldA) [Mass fraction] 97 % Ivette Grimes MD Work Phone: [facility] 01-04-2023 11:30-0500 Systolic blood pressure 132 mm[Hg] Ivette Grimes MD Work Phone: [facility] 12-28-2022 14:55-0500 Body height 170.[address] Ivette Grimes Work Phone: [facility] 12-28-2022 14:55-0500 Body mass index (BMI) [Ratio] 44.6 kg/m2 Dr. Ivette Grimes Work Phone: [facility] 12-28-2022 14:55-0500 Body weight 129.[address] Ivette Grimes Work Phone: [facility] 12-28-2022 14:55-0500 Diastolic blood pressure 79 mm[Hg] Dr. Ivette Grimes Work Phone: [facility] 12-28-2022 14:55-0500 Heart rate 71 /min Dr. Ivette Grimes Work Phone: [facility] 12-28-2022 14:55-0500 Respiratory rate 20 /min Dr. Ivette Grimes Work Phone: [facility] 12-28-2022 14:55-0500 Systolic blood pressure 130 mm[Hg] Dr. Ivette Grimes Work Phone: [facility] 12-26-2022 11:10-0500 Body height 170.2 cm Ivette Grimes MD Work Phone: [facility] 12-26-2022 11:10-0500 Body weight 128.37 kg Ivette Grimes MD Work Phone: [facility] 12-26-2022 11:10-0500 Diastolic blood pressure 74 mm[Hg] Ivette Grimes MD Work Phone: [facility] 12-26-2022 11:10-0500 Heart rate 83 /min Ivette Grimes MD Work Phone: [facility] 12-26-2022 11:10-0500 SaO2% (BldA) [Mass fraction] 97 % Ivette Grimes MD Work Phone: [facility] 12-26-2022 11:10-0500 Systolic blood pressure 140 mm[Hg] Ivette Grimes MD Work Phone: [facility] 12-14-2022 09:16-0500 Body height 170.2 cm Ivette Grimes MD Work Phone: [facility] 12-14-2022 09:16-0500 Body weight 125.65 kg Ivette Grimes MD Work Phone: [facility] 12-14-2022 09:16-0500 Diastolic blood pressure 98 mm[Hg] Ivette Grimes MD Work Phone: [facility] 12-14-2022 09:16-0500 Heart rate 75 /min Ivette Grimes MD Work Phone: [facility] 12-14-2022 09:16-0500 SaO2% (BldA) [Mass fraction] 98 % Ivette Grimes MD Work Phone: [facility] 12-14-2022 09:16-0500 Systolic blood pressure 160 mm[Hg] Ivette Grimes MD Work Phone: [facility] 12-07-2022 16:34-0500 Body temperature 98.8 [degF] Ivette Price Jr., MD Work Phone: [facility] 12-07-2022 16:34-0500 Body weight 126.01 kg Ivette Price Jr., MD Work Phone: [facility] 12-07-2022 16:34-0500 Diastolic blood pressure 94 mm[Hg] Ivette Price Jr., MD Work Phone: [facility] 12-07-2022 16:34-0500 Heart rate 72 /min Ivette Price Jr., MD Work Phone: [facility] 12-07-2022 16:34-0500 Respiratory rate 20 /min Ivette Price Jr., MD Work Phone: [facility] 12-07-2022 16:34-0500 SaO2% (BldA) [Mass fraction] 97 % Ivette Price Jr., MD Work Phone: [facility] 12-07-2022 16:34-0500 Systolic blood pressure 160 mm[Hg] Ivette Price Jr., MD Work Phone: [facility] 12-06-2022 08:07-0500 Body mass index (BMI) [Ratio] 43.4 kg/m2 Dr. Ivette Grimes Work Phone: [facility] 12-06-2022 08:07-0500 Body temperature 97.7 [degF] Dr. Ivette Grimes Work Phone: 7(490)202-393255 [place] [address] 12-06-2022 08:07-0500 Body weight 125.[address] Ivette Grimes Work Phone: 2(246)354-887511 [place] [address] 12-06-2022 08:07-0500 Diastolic blood pressure 79 mm[Hg] Dr. Ivette Grimes Work Phone: 8(305)522-424226 [address] 12-06-2022 08:07-0500 Heart rate 70 /min Dr. Ivette Grimes Work Phone: 2(229)121-819755 [place] [address] 12-06-2022 08:07-0500 Respiratory rate 18 /min Dr. Ivette Grimes Work Phone: [facility] 12-06-2022 08:07-0500 SaO2% (BldA) [Mass fraction] 98 % Dr. Ivette Grimes Work Phone: [facility] 12-06-2022 08:07-0500 Systolic blood pressure 141 mm[Hg] Dr. Ivette Grimes Work Phone: 0(326)346-463555 [place] [address] 12-03-2022 20:26-0500 Heart rate 75 /min Dr. Ivette Grimes Work Phone: 3(493)944-977011 [place] [address] 12-03-2022 20:26-0500 Respiratory rate 18 /min Dr. Ivette Grimes Work Phone: 2(533)838-057511 [place] [address] 12-03-2022 20:26-0500 SaO2% (BldA) [Mass fraction] 96 % Dr. Ivette Grimes Work Phone: 3(430)031-658455 [place] [address] 12-03-2022 18:25-0500 Body mass index (BMI) [Ratio] 43.4 kg/m2 Dr. Ivette Grimes Work Phone: 1(862)275-983355 [place] [address] 12-03-2022 18:25-0500 Body temperature 97.8 [degF] Dr. Ivette Grimes Work Phone: 2(925)156-050555 [place] [address] 12-03-2022 18:25-0500 Body weight 125.[address] Ivette Grimes Work Phone: 4(600)337-350155 [place] [address] 12-03-2022 18:25-0500 Diastolic blood pressure 91 mm[Hg] Dr. Ivette Grimes Work Phone: 3(883)671-331655 [place] [address] 12-03-2022 18:25-0500 Systolic blood pressure 176 mm[Hg] Dr. Ivette Girmes Work Phone: 8(385)426-990755 [place] [address] 11-27-2022 14:36-0500 Body height 170.[address] Ivette Grimes Work Phone: 9(523)451-603355 [place] [address] 11-27-2022 14:36-0500 Body mass index (BMI) [Ratio] 42.7 kg/m2 Dr. Ivette Grimes Work Phone: 4(149)965-999955 [place] [address] 11-27-2022 14:36-0500 Body temperature 98.1 [degF] Dr. Ivette Grimes Work Phone: 0(854)405-987055 [place] [address] 11-27-2022 14:36-0500 Body weight 123.[address] Ivette Grimes Work Phone: 6(583)598-912055 [place] [address] 11-27-2022 14:36-0500 Diastolic blood pressure 81 mm[Hg] Dr. Ivette Grimes Work Phone: 8(760)495-407555 [place] [address] 11-27-2022 14:36-0500 Heart rate 70 /min Dr. Ivette Grimes Work Phone: 8(966)326-082155 [place] [address] 11-27-2022 14:36-0500 Respiratory rate 15 /min Dr. Ivette Grimes Work Phone: [facility] 11-27-2022 14:36-0500 SaO2% (BldA) [Mass fraction] 99 % Dr. Ivette Grimes Work Phone: [facility] 11-27-2022 14:36-0500 Systolic blood pressure 154 mm[Hg] Dr. Ivette Grimes Work Phone: [facility] 11-27-2022 13:51-0500 Body height 170.2 cm Ivette Grimes MD Work Phone: [facility] 11-27-2022 13:51-0500 Body weight 123.83 kg Ivette Grimes MD Work Phone: [facility] 11-27-2022 13:51-0500 Diastolic blood pressure 84 mm[Hg] Ivette Grimes MD Work Phone: [facility] 11-27-2022 13:51-0500 Heart rate 75 /min Ivette Grimes MD Work Phone: [facility] 11-27-2022 13:51-0500 SaO2% (BldA) [Mass fraction] 97 % Ivette Grimes MD Work Phone: [facility] 11-27-2022 13:51-0500 Systolic blood pressure 150 mm[Hg] Ivette Grimes MD Work Phone: [facility] 11-24-2022 15:07-0500 Heart rate 67 /min Dr. Ivette Grimes Work Phone: [facility] 11-24-2022 15:07-0500 SaO2% (BldA) [Mass fraction] 97 % Dr. Ivette Grimes Work Phone: [facility] 11-24-2022 13:43-0500 Diastolic blood pressure 64 mm[Hg] Dr. Ivette Grimes Work Phone: [facility] 11-24-2022 13:43-0500 Respiratory rate 16 /min Dr. Ivette Grimes Work Phone: [facility] 11-24-2022 13:43-0500 Systolic blood pressure 132 mm[Hg] Dr. Ivette Grimes Work Phone: [facility] 11-24-2022 11:44-0500 Body height 170.[address] Ivette Grimes Work Phone: [facility] 11-24-2022 11:44-0500 Body mass index (BMI) [Ratio] 47.2 kg/m2 Dr. Ivette Grimes Work Phone: [facility] 11-24-2022 11:44-0500 Body temperature 97.9 [degF] Dr. Ivette Grimes Work Phone: [facility] 11-24-2022 11:44-0500 Body weight [address] Ivette Grimes Work Phone: [facility] 11-08-2022 13:35-0500 Heart rate 70 /min Adelina Marinelli FILTER [employer] Work Phone: [facility] 11-08-2022 13:35-0500 Respiratory rate 14 /min Adelina Marinelli FILTER FILLER.LOOP TACKER Work Phone: [facility] 11-08-2022 13:35-0500 SaO2% (BldA) [Mass fraction] 98 % Adelina Marinelli FILTER F[employer]ER.LOOP TACKER Work Phone: [facility] 09-04-2022 11:50-0400 Body height 170.2 cm Ivette Grimes MD Work Phone: [facility] 09-04-2022 11:50-0400 Body weight 123.11 kg Ivette Grimes MD Work Phone: [facility] 09-04-2022 11:50-0400 Diastolic blood pressure 80 mm[Hg] Ivette Grimes MD Work Phone: [facility] 09-04-2022 11:50-0400 Heart rate 74 /min Ivette Grimes MD Work Phone: [facility] 09-04-2022 11:50-0400 SaO2% (BldA) [Mass fraction] 98 % Ivette Grimes MD Work Phone: [facility] 09-04-2022 11:50-0400 Systolic blood pressure 160 mm[Hg] Ivette Grimes MD Work Phone: [facility] 08-16-2022 12:57-0400 Body height 170.[address] Ivette Grimes Work Phone: [facility] Work Phone: 08-16-2022 12:57-0400 Body mass index (BMI) [Ratio] 42.3 kg/m2 Dr. Ivette Grimes Work Phone: [facility] 08-16-2022 12:57-0400 Body weight 122.[address] Ivette Grimes Work Phone: 7(825)896-246626 [address] 08-16-2022 12:57-0400 Diastolic blood pressure 78 mm[Hg] Dr. Ivette Grimes Work Phone: 2(266)263-176355 [place] [address] 08-16-2022 12:57-0400 Heart rate 73 /min Dr. Ivette Grimes Work Phone: 5(959)556-790826 [address] 08-16-2022 12:57-0400 Respiratory rate 16 /min Dr. Ivette Grimes Work Phone: 0(902)893-423526 [address] 08-16-2022 12:57-0400 Systolic blood pressure 117 mm[Hg] Dr. vIette Grimes Work Phone: 8(157)679-780811 [place] [address] 08-07-2022 07:38-0400 Body height 170.[address] Ivette Grimes Work Phone: [facility] Work Phone: 08-07-2022 07:38-0400 Body mass index (BMI) [Ratio] 42.5 kg/m2 Dr. Ivette Grimes Work Phone: 7(342)106-111411 [place] [address] 08-07-2022 07:38-0400 Body temperature 99.1 [degF] Dr. Ivette Grimes Work Phone: 8(599)261-898626 [address] 08-07-2022 07:38-0400 Body weight 123.[address] Ivette Grimes Work Phone: [facility] 08-07-2022 07:38-0400 Diastolic blood pressure 81 mm[Hg] Dr. Ivette Grimes Work Phone: [facility] 08-07-2022 07:38-0400 Heart rate 65 /min Dr. Ivette Grimes Work Phone: [facility] 08-07-2022 07:38-0400 Respiratory rate 16 /min Dr. Ivette Grimes Work Phone: [facility] 08-07-2022 07:38-0400 SaO2% (BldA) [Mass fraction] 97 % Dr. Ivette Grimes Work Phone: [facility] 08-07-2022 07:38-0400 Systolic blood pressure 130 mm[Hg] Dr. Ivette Grimes Work Phone: [facility] 08-02-2022 09:50-0400 Body weight 122.02 kg Ivette Grimes MD Work Phone: [facility] 08-02-2022 09:50-0400 Diastolic blood pressure 82 mm[Hg] Ivette Grimes MD Work Phone: [facility] 08-02-2022 09:50-0400 Heart rate 60 /min Ivette Grimes MD Work Phone: [facility] 08-02-2022 09:50-0400 Systolic blood pressure 126 mm[Hg] Ivette Grimes MD Work Phone: [facility] 07-19-2022 12:57-0400 Body height 170.2 cm Karen Bansal FILTER F[employer]ER[employer]OP T[employer]ER Work Phone: [facility] 07-19-2022 12:57-0400 Body weight 122.92 kg Karen Bansal FILTER FILLER.LOOP TACKER Work Phone: [facility] 07-19-2022 12:57-0400 Diastolic blood pressure 57 mm[Hg] Karen Bansal FILTER FILLER.LOOP TACKER Work Phone: [facility] 07-19-2022 12:57-0400 Heart rate 76 /min Karen Dowellerickson FILTER FILLER.LOOP TACKER Work Phone: [facility] [facility] 07[facility]-2022 12:57-0400 Systolic blood pressure 115 mm[Hg] Karen Bansal FILTER FILLER.LOOP TACKER Work Phone: [facility] 06-07-2022 15:13-0400 Body temperature 97.81 [degF] Tara Dahlhausen FILTER FILLER.LOOP TACKER Work Phone: [facility] 06-07-2022 15:13-0400 Body weight 119.84 kg Tara Dahlhausen FILTER FILLER.LOOP TACKER Work Phone: [facility] 06-07-2022 15:13-0400 Diastolic blood pressure 68 mm[Hg] Tara Dahlhausen FILTER FILLER.LOOP TACKER Work Phone: [facility] 06-07-2022 15:13-0400 Heart rate 80 /min Tara Dahlhausen FILTER FILLER.LOOP TACKER Work Phone: [facility] 06-07-2022 15:13-0400 Respiratory rate 22 /min Tara Dahlhausen FILTER FILLER.LOOP TACKER Work Phone: [facility] 06-07-2022 15:13-0400 SaO2% (BldA) [Mass fraction] 98 % Tara Dahlhausen FILTER FILLER.LOOP TACKER Work Phone: [facility] 06-07-2022 15:13-0400 Systolic blood pressure 112 mm[Hg] Tara Dahlhausen FILTER FILLER.LOOP TACKER Work Phone: [facility] 06-04-2022 14:39-0400 Body height 170.[address] Ivette Grimes Work Phone: [facility] Work Phone: 05-24-2022 11:01-0400 Heart rate 78 /min Adelina Marinelli FILTER FILLER.LOOP TACKER Work Phone: [facility] 05-24-2022 11:01-0400 Respiratory rate 18 /min Adelina Marinelli FILTER FILLER.LOOP TACKER Work Phone: [facility] 05-24-2022 11:01-0400 SaO2% (BldA) [Mass fraction] 98 % Adelina Marinelli FILTER FILLER.LOOP TACKER Work Phone: [facility] 05-10-2022 10:54-0400 Diastolic blood pressure 75 mm[Hg] Elle Rasheed MD Work Phone: [facility] 05-10-2022 10:54-0400 Heart rate 61 /min Elle Rasheed MD Work Phone: [facility] 05-10-2022 10:54-0400 Respiratory rate 20 /min Elle Rasheed MD Work Phone: [facility] 05-10-2022 10:54-0400 SaO2% (BldA) [Mass fraction] 98 % Elle Rasheed MD Work Phone: [facility] 05-10-2022 10:54-0400 Systolic blood pressure 130 mm[Hg] Elle Rasheed MD Work Phone: [facility] 05-01-2022 14:39-0400 Body weight 118.39 kg Ivette Grimes MD Work Phone: [facility] 05-01-2022 14:39-0400 Diastolic blood pressure 80 mm[Hg] Ivette Grimes MD Work Phone: [facility] 05-01-2022 14:39-0400 Heart rate 68 /min Ivette Grimes MD Work Phone: [facility] 05-01-2022 14:39-0400 Respiratory rate 18 /min Ivette Grimes MD Work Phone: [facility] 05-01-2022 14:39-0400 SaO2% (BldA) [Mass fraction] 98 % Ivette Grimes MD Work Phone: [facility] 05-01-2022 14:39-0400 Systolic blood pressure 132 mm[Hg] Ivette Grimes MD Work Phone: [facility] 04-09-2022 15:29-0400 Body temperature 97.5 [degF] Ivette Price Jr., MD Work Phone: [facility] 04-09-2022 15:29-0400 Body weight 122.2 kg Ivette Price Jr., MD Work Phone: [facility] 04-09-2022 15:29-0400 Diastolic blood pressure 72 mm[Hg] Ivette Price Jr., MD Work Phone: [facility] 04-09-2022 15:29-0400 Heart rate 74 /min Ivette Price Jr., MD Work Phone: [facility] 04-09-2022 15:29-0400 Respiratory rate 18 /min Ivette Price Jr., MD Work Phone: [facility] 04-09-2022 15:29-0400 SaO2% (BldA) [Mass fraction] 97 % Ivette Price Jr., MD Work Phone: [facility] 04-09-2022 15:29-0400 Systolic blood pressure 138 mm[Hg] Ivette Price Jr., MD Work Phone: [facility] 03-29-2022 10:58-0400 Heart rate 62 /min Elle Rasheed MD Work Phone: [facility] 03-29-2022 10:58-0400 Respiratory rate 15 /min Elle Rasheed MD Work Phone: [facility] 03-29-2022 10:58-0400 SaO2% (BldA) [Mass fraction] 98 % Elle Rasheed MD Work Phone: [facility] 02-28-2022 16:31-0400 Body weight 120.66 kg Ivette Grimes MD Work Phone: [facility] 02-28-2022 16:31-0400 Diastolic blood pressure 82 mm[Hg] Ivette Grimes MD Work Phone: [facility] 02-28-2022 16:31-0400 Heart rate 72 /min Ivette Grimes MD Work Phone: [facility] 02-28-2022 16:31-0400 Systolic blood pressure 142 mm[Hg] Ivette Grimes MD Work Phone: [facility] 11-21-2021 13:58-0500 Body height 170.[address] Ivette Grimes Work Phone: [facility] Work Phone: 09-09-2017 14:42-0500 BMI (Body Mass Index) 41.78 kg/m2 Amparo Hitchcock MD [facility] 09-09-2017 14:42-0500 Body Temperature 98.5 [degF] Amparo Hitchcock MD [facility] 09-09-2017 14:42-0500 Body Temperature 98.49 [degF] Amparo Hitchcock MD [facility] 09-09-2017 14:42-0500 BP Diastolic 78 mm[Hg] Amparo Hitchcock MD [facility] 09-09-2017 14:42-0500 BP Systolic 137 mm[Hg] Amparo Hitchcock MD [facility] 09-09-2017 14:42-0500 Height 172.72 cm Amparo Hitchcock MD [facility] 09-09-2017 14:42-0500 Pulse (Heart Rate) 67 /min Amparo Hitchcock MD [facility] 09-09-2017 14:42-0500 Respiratory Rate 16 /min Amparo Hitchcock MD [facility] 09-09-2017 14:42-0500 Weight 124.65 kg Amparo Hitchcock MD [facility] 07-22-2017 16:06-0400 BMI (Body Mass Index) 39.53 kg/m2 [facility] Work Phone: 07-22-2017 16:06-0400 Pulse (Heart Rate) 95 /min [facility] Work Phone: 07-22-2017 16:06-0400 Respiratory Rate 22 /min [facility] Work Phone: 07-22-2017 16:06-0400 Weight 117.94 kg Roya GALVEZ Medical [facility] Work Phone: 05-10-2017 14:47-0400 Body Temperature 97.7 [degF] Roya GALVEZ Medical [facility] Work Phone: 05-10-2017 14:47-0400 BP Diastolic 84 mm[Hg] Roya GALVEZ Medical [facility] Work Phone: 05-10-2017 14:47-0400 BP Systolic 132 mm[Hg] Roya GALVEZ Medical [facility] Work Phone: 05-10-2017 14:47-0400 Height 172.72 cm Roya GALVEZ Medical [facility] Work Phone: Encounters Encounter Date Encounter Type Care Provider Facility Start: 09-16-2025 Encounter for other preprocedural examination [facility] Start: 09-16-2025 ambulatory [facility] Start: 09-16-2025 End: 09-16-2025 ambulatory [facility] Facility:[facility] Start: 09-09-2025 End: 09-09-2025 ambulatory [facility] Start: 09-02-2025 End: 09-02-2025 ambulatory [facility] Start: 08-30-2025 End: 08-30-2025 ambulatory [facility] Start: 08-27-2025 End: 08-27-2025 ambulatory [facility] Start: 08-11-2025 End: 08-11-2025 ambulatory [facility] Facility:[facility] Start: 08-05-2025 End: 08-05-2025 Dr. Brett Quiroga MD -[facility] Work Phone: Start: 08-05-2025 End: 08-05-[address] Ivette Grimes MD Work Phone: -[facility] Start: 08-04-2025 End: 08-04-2025 ambulatory AMANDA URIBESHI Facility:[facility] Start: 07-29-2025 End: 07-29-2025 ambulatory IVETTE GRIMES Facility:[facility] Start: 07-23-2025 End: 07-23-[address] Ivette Grimes MD Work Phone: -Laboratory Start: 07-23-2025 End: 07-23-2025 Dr. Ivette Grimes MD -Laboratory Work Phone: Start: 07-23-2025 End: 07-23-2025 ambulatory Ivette Patinoo Facility:[facility] Start: 07-15-2025 End: 07-15-2025 Telephone encounter Lubna De La Garza FILTER FILLER.LOOP TACKER Work Phone: [facility] Start: 07-15-2025 End: 07-15-2025 Office outpatient visit 25 minutes Lubna De La Garza FILTER FILLER.LOOP TACKER Work Phone: [facility] Comment on above: Sepsis due to [...] End: 07-15-2025 ambulatory LUBNA DE LA GARZA Facility:[facility] Start: 07-09-2025 End: 07-09-[address] Brett Quiroga MD -[facility] Work Phone: Start: 07-09-2025 End: 07-09-2025 Dr. Brett Quiroga MD [facility] Work Phone: Start: 07-09-2025 End: 07-09-[address] Ivette Grimes MD Work Phone: -[facility] Comment on above: Transition Of Care ( [facility] Discharge 07/07/25) Start: 07-07-2025 Non-patient / Non-visit Dr. Brittany emmanuel MD -[facility] Work Phone: Start: 07-07-2025 Dr. Brittany Harrison [facility] Work Phone: Start: 07-06-2025 Non-patient / Non-visit Dr. Rachelle Reinoso MD -[facility] Work Phone: Start: 07-06-2025 Dr. Jose Juan Reinoso MD -[facility] Work Phone: Start: 07-05-2025 End: 07-07-2025 Evaluation and management of inpatient Dr. Shana Mendoza MD -Intensive Care Unit Work Phone: Start: 07-05-2025 ambulatory Shana Mendoza Facility :[facility] Start: 07-05-2025 Non-patient / Non-visit Dr. Shana Mendoza MD -[facility] Work Phone: Start: 07-05-2025 End: 07-07-2025 Dr. Brittany Harrison MD -Intensive Care Unit Work Phone: Start: 07-04-2025 End: 07-06-2025 Refill Ivette Grimes MD Work Phone: [facility] Comment on above: Refill Request Start: 06-25-2025 End: 06-25-[address] Brett Quiroga MD -[facility] Work Phone: Start: 06-25-2025 End: 06-25-2025 Dr. Brett Quiroga MD -[facility] Work Phone: Start: 06-25-2025 End: 06-25-[address] Ivette Grimes MD Work Phone: -[facility] Start: 06-23-2025 Non-patient / Non-visit Dr. Brett hernandez MD -[facility] Start: 06-23-2025 End: 06-23-2025 Admission to same day surgery center Dr. Brett Quiroga MD [facility] Start: 06-23-2025 End: 06-23-2025 Dr. Brett Quiroga MD [facility] Start: 06-23-2025 End: 06-23-[address] Ivette Grimes MD Work Phone: -[facility] Start: 06-17-2025 End: 06-17-[address] Bibiana Rehman DC -[facility] Work Phone: Start: 06-17-2025 End: 06-17-2025 Dr. Bibiana Rehman DC -[facility] Work Phone: Start: 06-17-2025 End: 06-17-[address] Ivette Grimes MD Work Phone: -[facility] Start: 06-16-2025 End: 06-16-2025 Refill Ivette Grimes MD Work Phone: [facility] Comment on above: Refill Request Start: 06-10-2025 ambulatory Brett Quiroga Facility :[facility] Start: 06-10-2025 Non-patient / Non-visit Dr. Carson SHEARER -[facility] Work Phone: Start: 06-10-2025 Dr. Vin Montes MD -[facility] Work Phone: Start: 06-09-2025 End: 06-18-2025 Telephone encounter Ivette Grimes MD Work Phone: [facility] Comment on above: Results Start: 06-09-2025 End: 06-09-[address] Ivette Grimes MD Work Phone: -Laboratory Start: 06-09-2025 End: 06-09-[address] Ivette Grimes MD -Laboratory Work Phone: Start: 06-09-2025 End: 06-09-2025 Dr. Ivette Grimes MD -Laboratory Work Phone: Start: 06-09-2025 End: 06-09-2025 ambulatory Ivette Grimes Facility:[facility] Start: 06-07-2025 End: 06-07-2025 Patient encounter procedure Ivette Grimes MD Work Phone: [facility] [place] Comment on above: Well adult exam (Carolyn [...] Ivette Grimes MD Work Phone: [facility] Start: 06-07-2025 End: 06-07-2025 ambulatory IVETTE GRIMES Facility:[facility] Start: 06-07-2025 Encounter for genera l adult medical examination without abnormal findings IVETTE GRIMES [facility] Start: 06-05-2025 Registered Referred HEALTH RISK ASSE SSMENT -Laboratory Work Phone: Start: 06-05-2025 HEALTH RISK ASSESSMENT -Laboratory Work Phone: Start: 06-05-2025 ambulatory Health Risk Assessment Facility:[facility] Start: 06-01-2025 End: 06-01-[address] Bibiana Rehman DC -[facility] Work Phone: Start: 06-01-2025 End: 06-01-2025 Dr. Bibiana Rehman DC -[facility] Work Phone: Start: 06-01-2025 End: 06-01-[address] Ivette Grimes MD Work Phone: -[facility] Start: 05-11-2025 ambulatory Ivette Grimes Facility:[facility] Start: 05-11-[address] Ivette barry MD -Physical Therapy Work Phone: Start: 05-11-2025 Dr. Ivette Grimes MD -Ph ysical Therapy Work Phone: Start: 05-06-2025 End: 05-06-[address] Brett Quiroga MD -[facility] Work Phone: Start: 05-06-2025 End: 05-06-2025 Dr. Brett Quiroga MD -[facility] Work Phone: Start: 05-06-2025 End: 05-06-[address] Ivette Grimes MD Work Phone: -[facility] Start: 05-05-[address] Ivette barry MD -Physical Therapy Work Phone: Start: 04-21-2025 End: 04-21-[address] Bibiana Rehman DC -[facility] Work Phone: Start: 04-21-2025 End: 04-21-2025 Dr. Bibiana Rehman DC -[facility] Work Phone: Start: 04-21-2025 End: 04-21-[address] Ivette Grimes MD Work Phone: [facility] Work Phone: Start: 04-20-[address] Ivette barry MD -Physical Therapy Work Phone: Start: 04-17-2025 End: 04-17-[address] Ivette Grimes MD Work Phone: [facility] Work Phone: Start: 04-17-2025 End: 04-17-[address] Brett Quiroga MD -[facility] Work Phone: Start: 04-17-2025 End: 04-17-2025 Dr. Brett Quiroga MD -[facility] Work Phone: Start: 04-17-2025 End: 04-17-2025 ambulatory Ivette Grimes Facility:[facility] Start: 04-12-2025 End: 04-12-2025 ambulatory Ivette Grimes MD Work Phone: [facility] Comment on above: Muscle relaxer Start: 04-07-2025 End: 04-07-2025 Telephone encounter Ivette Grimes MD Work Phone: [facility] Comment on above: Rx Refills Start: 04-05-2025 End: 04-05-[address] Bibiana Rehman DC -[facility] Work Phone: Start: 04-05-2025 End: 04-05-[address] Ivette Grimes MD Work Phone: [facility] Work Phone: Start: 04-01-2025 End: 04-01-2025 Telephone encounter Amanda Arteaga PA-C Work Phone: Neurology Comment on above: Botox Approved Start: 03-22-2025 End: 03-22-[address] Brett Quiroga MD -[facility] Work Phone: Start: 03-22-2025 End: 03-22-[address] Ivette Grimes MD Work Phone: [facility] Work Phone: Start: 03-19-2025 End: 03-19-2025 Telephone encounter Amanda Arteaga PA-C Work Phone: Neurology Comment on above: Botox Referral Start: 03-11-2025 End: 03-11-[address] Ivette Grimes MD Work Phone: [facility] Work Phone: Start: 03-11-2025 End: 03-11-[address] Brett Quiroga MD -Radiology, [facility] Work Phone: Start: 03-11-2025 End: 03-11-2025 ambulatory Ivette Grimes Facility:[facility] Start: 03-09-2025 End: 03-09-[address] Bibiana Rehman DC -[facility] Work Phone: Start: 03-09-2025 End: 03-09-2025 ambulatory Ivette Laporte [facility] Start: 03-09-[address] Ivette [...] Ivette Grimes MD Work Phone: [facility] [place] Start: 03-02-2025 End: 03-02-2025 ambulatory Ivette Grimes MD Work Phone: [facility] [place] Comment on above: Intractable chronic migraine without aura and without status migrainosus (Primary Dx); Chronic left shoulder pain Start: 02-16-2025 ambulatory [facility] Start: 02-04-2025 End: 02-04-[address] Bibiana Rehman DC -[facility] Work Phone: Start: 02-04-2025 End: 02-04-2025 ambulatory Ivette Laporte [facility] Start: 01-28-2025 End: 01-28-2025 Chart abstracting [...] ambulatory Dr. Ivette Grimes MD Work Phone: [facility] Work Phone: Start: 01-28-2025 End: 01-28-[address] Ivette Grimes MD -Laboratory Work Phone: Start: 01-28-2025 End: 01-28-2025 ambulatory [facility] Facility:[facility] Start: 01-22-2025 End: 01-22-2025 ambulatory [facility] Facility:[facility] Start: 01-22-2025 End: 01-22-2025 Patient encounter procedure Ivette Grimes MD Work Phone: [facility] Comment on above: LETITIA (obstructive sle ep apnea) (Primary Dx); Flank pain; Headache, unspecified headache type; Type 2 diabetes mellitus with microalbuminuria, with long-term current use of insulin (HCC); Essential (primary) hypertension; Chronic left shoulder pain; Anxiety; Screening for depression Start: 12-24-2024 End: 12-25-2024 Refill Ivette Grimes MD Work Phone: [facility] Comment on above: Refill Request Start: 12-21-2024 End: 12-24-2024 Telephone encounter Jenni Jain APRN.LOOP TACKER Work Phone: [facility] Comment on above: Results (Labs/Chest xray ) Start: 12-11-2024 End: 12-11-2024 Telephone encounter Ivette Grimes MD Work Phone: [facility] Comment on above: Orders Start: 12-11-2024 End: 12-11-2024 Patient encounter procedure Jenni THORNE -Radiology, [facility] Work Phone: Start: 12-11-2024 End: 12-11-2024 Office outpatient visit 25 minutes Jenni Jain APRN.LOOP TACKER Work Phone: [facility] Comment on above: Sinobronchitis (Prim ziyad Dx); Hypokalemia Start: 12-11-2024 End: 12-11-2024 ambulatory JENNIFRANK MAHANJenny Facility:[facility] Start: 12-11-2024 End: 12-11-2024 ambulatory Ivette Grimes Facility:[facility] Start: 11-25-2024 End: 11-25-2024 Refill Ivette Grimes MD Work Phone: [facility] Comment on above: Refill Request Start: 11-23-2024 End: 11-23-2024 Refill Ivette Grimes MD Work Phone: [facility] Comment on above: Refill Request Start: 11-17-2024 End: 12-18-2024 ambulatory Ivette Grimes MD Work Phone: [facility] Start: 11-11-2024 End: 11-11-2024 Emergency department patient visit Dr. Buddy Hall DO -Emergency Department Work Phone: Start: 10-26-2024 End: 10-26-2024 Refill Ivette Grimes MD Work Phone: Psychiatry Comment on above: Refill Request Start: 10-19-2024 End: 10-19-2024 ambulatory Ivette Grimes MD Work Phone: [facility] Comment on above: Flank pain (Primary Dx) Start: 10-19-2024 End: 10-19-2024 Telemedicine consultation with patient Ivette Grimes MD Work Phone: [facility] Start: 10-19-2024 End: 10-19-[address] Bibiana Rehman DC -[facility] Work Phone: Start: 10-19-2024 End: 10-19-2024 ambulatory Ivette Laporte Facility[facility] Start: 10-16-2024 End: 10-16-2024 Emergency department patient visit Dr. Sam Pearl MD -Emergency Department Work Phone: Start: 10-07-2024 ambulatory Ivette Laporte [facility] Start: 09-24-2024 End: 09-24-2024 ambulatory Ivette Grimes MD Work Phone: [facility] Comment on above: Dysuria (Primary Dx) ; Type 2 diabetes mellitus with microalbuminuria, with long-term current use of insulin (HCC); Primary insomnia Start: 09-24-2024 End: 09-24-2024 Telemedicine consultation with patient Ivette Grimes MD Work Phone: [facility] Start: 09-03-2024 End: 09-03-2024 Patient encounter [...] 08-11-2024 Refill Ivette Grimes MD Work Phone: [facility] Comment on above: Refill Request Start: 08-05-2024 End: 08-06-2024 Telephone encounter Ivette Grimes MD Work Phone: [facility] [place] Comment on above: Insurance Authorizat ion (Ozempic ) Start: 08-05-2024 End: 08-05-2024 Patient encounter procedure Ivette Grimes MD Work Phone: [facility] Comment on above: Well adult exam ([facility] alyssa Dx); Essential (primary) hypertension; LETITIA (obstructive sleep apnea); Nonalcoholic fatty liver; Type 2 diabetes mellitus with microalbuminuria, with long-term current use of insulin (HCC); Vertigo; Morbid obesity (HCC); Anxiety; Prolonged Q-T interval on ECG; Herniation of lumbar intervertebral disc with radiculopathy Start: 08-05-2024 End: 08-05-2024 Patient encounter status Ivette Grimes MD Work Phone: [facility] Start: 07-24-2024 End: 07-27-2024 Refill Ivette Grimes MD Work Phone: Psychiatry Comment on above: Refill Request Start: 07-21-2024 End: 07-21-2024 Telephone encounter Ivette Grimes MD Work Phone: [facility] [place] Comment on above: Orders Start: 07-09-2024 End: 07-10-2024 Telephone encounter Ivette Grimes MD Work Phone: [facility] [place] Comment on above: Patient Question Start: 07-08-2024 End: 07-08-2024 Chart abstracting Ivette Grimes MD Work Phone: [facility] [place] Start: 07-08-2024 End: 07-08-2024 Telephone encounter Ivette Grimes MD Work Phone: [facility] [place] Comment on above: Results Start: 07-07-2024 End: [...] Ivette Grimes MD Work Phone: [facility] [place] Comment on above: Good Afternoon Start: 06-05-2024 ambulatory Fatuma vásquez PA-C Work Phone: Neurology Comment on above: Botox Start: 06-05-2024 E-mail encounter fro m caregiver Fatuma Beckford PA-C Work Phone: Neurology Start: 06-04-2024 Telephone encounter Fatuma perales PA-C Work Phone: Neurology Comment on above: Insurance Authorizat ion [facility] Start: 06-03-2024 End: 06-03-2024 ambulatory Ivette Grimes MD Work Phone: [facility] Comment on above: Left sided sciatica (Primary Dx); Screening for depression Start: 06-03-2024 End: 06-03-2024 Telemedicine consultation with patient Ivette Grimes MD Work Phone: [facility] Start: 05-12-2024 Refill Ivette Grimes MD Work Phone: [facility] [place] Comment on above: Refill Request Start: 05-01-2024 Telephone encounter Ivette Grimes MD Work Phone: [facility] Comment on above: medication not on cu rrent medication list Start: 04-20-2024 Refill Ivette Grimes MD Work Phone: [facility] [place] Comment on above: Refill Request Start: 04-19-2024 Refill [facility] Comment on above: Refill Request Start: 04-14-2024 Refill Grace morales APRN.LOOP TACKER Work Phone: Psychiatry Comment on above: Refill Request Insurance Authorizat ion ([employer] ) Start: 04-06-2024 Telephone encounter Fatuma perales PA-C Work Phone: Neurology Comment on above: Insurance Authorizat ion (Botox ) Start: 04-02-2024 End: 04-02-2024 Patient encounter procedure Fatuma Beckford PA-C Work Phone: Neurology Comment on above: Intractable chronic migraine without aura and without status migrainosus (Primary Dx) Start: 02-28-2024 Refill Stephanie Paz APRN.LOOP TACKER Work Phone: [facility] [place] Comment on above: Refill Request Start: 02-04-2024 End: 02-04-2024 Emergency department patient [facility] Dr[facility] Ivette [facility]imes [facility] Work Phone: Start: 01-22-2024 Refill Ivette Grimes MD Work Phone: [facility] Comment on above: Refill Request Start: [...] encounter procedure Dr. Ivette Grimes Work Phone: [facility] Medicine [facility] Work Phone: Start: 12-09-2023 End: 12-09-2023 Patient encounter procedure Ivette Grimes MD Work Phone: [facility] Comment on above: Essential (primary) hypertension (Primary Dx); LETITIA (obstructive sleep apnea); Fatty liver; Vertigo; Anxiety Start: 12-09-2023 Telephone encounter Ivette Grimes MD Work Phone: [facility] Comment on above: Orders Start: 12-06-2023 End: 12-06-[address] Ivette Grimes Work Phone: [facility] Work Phone: Start: 12-06-2023 End: 12-06-[address] Ivette Grimes Work Phone: [facility]-Laboratory, OP Pavilion Start: 12-05-2023 ambulatory Ivette Grimes MD Work Phone: [facility] Comment on above: Labs Start: 10-27-2023 End: 10-27-2023 Emergency department patient visit Self Referred [facility]-Emergency Department Work Phone: Start: 10-14-2023 Refill Ivette Grimes MD Work Phone: [facility] [place] Comment on above: Refill Request Start: 09-23-2023 Refill Adriana Silke Gage Work Phone: Psychiatry Comment on above: Refill Request Start: 09-12-2023 End: 09-12-2023 Patient encounter procedure Self Referred [facility] Work Phone: Start: 09-09-2023 Refill Ivette Grimes MD Work Phone: [facility] [place] Comment on above: Refill Request Start: 08-21-2023 E-mail encounter fro m caregiver [facility] Start: 08-21-2023 Patient encounter procedure [facility] Neurology Comment on above: Botox Appointment Start: 08-20-2023 Telephone encounter Ivette Grimes MD Work Phone: Family [facility] [place] Comment on above: Forms ([facility] preventat ashish care ) Start: 08-15-2023 End: 08-15-2023 Patient encounter procedure Self Referred [facility] Work Phone: Start: 08-07-2023 Non-patient / Non-visit Self Referre d [facility] Work Phone: Start: 08-06-2023 Non-patient / Non-visit Self Referre d [facility] Work Phone: Start: 08-06-2023 Non-patient / Non-visit Self Referre d [facility] Start: 08-05-2023 End: 08-07-2023 Evaluation and management of inpatient Dr. Ivette Grimse Work Phone: [facility]-Progressive Care Unit Work Phone: Start: 08-05-[address] Reji Grimes Work Phone: [facility] Work Phone: Start: 08-01-2023 End: 08-01-[address] Ivette Grimes Work Phone: [facility] Work Phone: Start: 08-01-2023 End: 08-01-2023 ambulatory Self Referred [facility] Work Phone: Start: 08-01-2023 End: 08-01-2023 [facility] Start: 08-01-[address] Gerald Grimes Work Phone: [facility]-Physical Therapy Work Phone: Start: 07-18-2023 End: 07-18-[address] Ivette Grimes Work Phone: [facility] Work Phone: Start: 07-18-2023 End: 07-18-[address] Ivette Grimes Work Phone: [facility] Work Phone: Start: 07-18-2023 End: 07-18-[address] [facility] Start: 07-05-2023 Refill Ivette Grimes MD Work Phone: [facility] Comment on above: Refill Request Start: 06-20-2023 End: 06-20-[address] [facility] Work Phone: Start: 06-19-2023 End: 06-20-2023 [...] encounter procedure Dr. Ivette Grimes Work Phone: [facility] Work Phone: Start: 06-06-2023 End: 06-06-2023 Patient encounter procedure Ivette Grimes MD Work Phone: [facility] [place] Comment on above: Type 2 diabetes fred [...] encounter procedure Isiah Funes APRN.CNP Work Phone: [facility] [facility] Comment on above: Foot pain, right (Pr imary Dx) Start: 05-29-2023 Telephone encounter Nicole vaca PA-C Work Phone: Urgent Care Comment on above: Pt requesting Boot Start: 05-28-2023 End: 05-28-2023 Subsequent hospital visit by physician Xr [facility] Work Phone: Radiology Comment on above: Pain of right heel [ M79.671] Start: 05-20-2023 End: 05-20-2023 Emergency department patient visit Dr. Ivette Grimes Work Phone: [facility]-Emergency Department Work Phone: Start: 05-17-2023 End: 05-17-2023 Patient encounter procedure Fatuma Beckford PA-C Work Phone: Neurology Comment on above: Intractable chronic migraine without aura and without status migrainosus (Primary Dx); Post concussive syndrome Start: 05-09-[address] Gerald Grimes Work Phone: [facility]-Physical Therapy Work Phone: Start: 05-07-2023 Refill Ivette Grimes MD Work Phone: [facility] Comment on above: Refill Request Start: 04-30-2023 End: 04-30-[address] Ivette Grimes Work Phone: [facility] Work Phone: Start: 04-16-2023 End: 04-16-[address] Ivette Grimes Work Phone: [facility] Work Phone: Start: 04-04-2023 Refill Ivette Grimes MD Work Phone: [facility] Comment on above: Refill Request Start: 04-02-2023 End: 04-02-[address] Ivette Grimes Work Phone: [facility] Work Phone: Start: 04-02-2023 End: 04-02-[address] Ivette Grimes Work Phone: [facility] Work Phone: Start: 04-02-2023 End: 04-02-[address] Ivette Grimes Work Phone: [facility]-Pulmonary Services/Neurology Work Phone: Start: 03-20-2023 Telephone encounter Fatuma perales PA-C Work Phone: Neurology Comment on above: Medication Authoriza tion (Botox renewal ) Start: 03-19-2023 End: 03-19-[address] Ivette Grimes Work Phone: [facility] Work Phone: Start: 03-12-2023 ambulatory Fatuma vásquez PA-C Work Phone: Neurology Comment on above: EEG Start: 03-09-2023 ambulatory Karen lópez FILTER FILLER.LOOP TACKER Work Phone: Neurology Comment on above: Botox Start: 03-05-[address] Gerald Grimes Work Phone: [facility]-Physical Therapy Start: 03-05-2023 End: 03-05-2023 Patient encounter procedure Galina Camacho MD Work Phone: OB/Gynecology Comment on above: Encounter for gyneco logical examination (general) (routine) without abnormal findings (Primary Dx) Post concussion synd roebrta (Primary Dx); LETITIA (obstructive sleep apnea); Intractable acute post-traumatic headache; Altered awareness, transient Start: 03-05-2023 End: 03-05-2023 Patient encounter status Galina Camacho MD Work Phone: OB/Gynecology Start: 03-04-2023 End: 03-04-2023 ambulatory Ivette Grimes MD Work Phone: Family [facility] Comment on above: Question regarding M ICROALBUMIN/CREATININE UR W RATIO (EXTERNAL) labs Start: 03-04-2023 E-mail encounter fro m caregiver Ivette Grimes MD Work Phone: [facility] Start: 03-04-2023 Telephone encounter Ivette Grimes MD Work Phone: Family [facility] Comment on above: Medication change re quested Start: 03-04-2023 End: 03-04-[address] Ivette Grimes Work Phone: [facility]-Laboratory, OP Pavilion Start: 03-01-2023 Telephone encounter Ivette Price MD Work Phone: Neurology Comment on above: Appointment Start: 03-01-2023 End: 03-01-2023 Patient encounter procedure Ivette Price MD Work Phone: Neurology Comment on above: Post concussion synd roberta (Primary Dx); LETITIA (obstructive sleep apnea) Start: 02-28-2023 End: 02-28-2023 Patient encounter procedure Ivette Grimes MD Work Phone: [facility] Comment on above: Soft tissue mass (Pr imary Dx); Post concussive syndrome; Essential (primary) hypertension; Type 2 diabetes mellitus with microalbuminuria, with long-term current use of insulin (HCC); Headache, unspecified headache type; Myalgia Start: 02-28-2023 End: 02-28-[address] Ivette Grimes Work Phone: [facility] Start: 02-28-2023 End: 02-28-2023 Subsequent hospital visit by physician Mri [facility] (I-Stat/1.5t) Work Phone: Radiology Comment on above: Post concussion synd roberta [F07.81] Start: 02-27-2023 Telephone encounter Ivette Grimes MD Work Phone: [facility] Comment on above: Medication Request Start: 02-22-2023 Refill Ivette Grimes MD Work Phone: [facility] Comment on above: Refill Request Start: 02-15-2023 End: 02-15-2023 [facility] Grace Coronel APRN.CNP Work Phone: Psychiatry Comment on above: VAHE (generalized anx iety disorder) (Primary Dx); Recurrent major depressive disorder, in full remission (HCC) Start: 02-14-2023 End: 02-14-[address] Ivette Grimes Work Phone: [facility] Start: 02-14-[address] [facility] Start: 02-11-2023 Refill Ivette Grimes MD Work Phone: [facility] Comment on above: Refill Request Start: 02-09-2023 Telephone encounter Ivette Grimes MD Work Phone: [facility] Comment on above: Results Start: 02-08-2023 End: 02-08-[address] Ivette Grimes Work Phone: [facility] Work Phone: Start: 02-08-2023 End: 02-08-[address] Ivette Grimes Work Phone: [facility]-Ultrasound, [facility] Start: 01-31-2023 Telephone encounter Ivette Grimes MD Work Phone: [facility] Comment on above: Orders Start: 01-31-2023 End: 01-31-[address] Ivette Grimes Work Phone: [facility] Start: 01-31-2023 End: 01-31-2023 Patient encounter procedure Ivette Grimes MD Work Phone: [facility] Comment on above: Post concussive synd roberta (Primary Dx); Headache, unspecified headache type; Injury of neck, subsequent encounter Start: 01-24-2023 End: 01-24-2023 ambulatory ELLE RASHEED Facility:[facility] Start: 01-24-2023 End: 01-24-2023 Patient encounter procedure Elle Rasheed MD Work Phone: [facility] Comment on above: Chronic left shoulde r pain (Primary Dx); Adhesive capsulitis of left shoulder; Neuropathic pain; Primary osteoarthritis of left shoulder; Myofascial pain; Lumbar spondylosis Start: 01-22-2023 End: 01-22-2023 Patient encounter procedure Karen Bansal APRN.LOOP TACKER Work Phone: Neurology Comment on above: Intractable chronic migraine without aura and without status migrainosus (Primary Dx) Start: 01-17-2023 End: 01-17-[address] Ivette Grimes Work Phone: [facility] Work Phone: Start: 01-17-2023 End: 01-17-[address] [facility] Start: 01-17-2023 End: 01-17-2023 Patient encounter procedure Ivette Grimes MD Work Phone: [facility] [place] Comment on above: Post concussive synd roberta (Primary Dx); Headache, unspecified headache type; Injury of neck, subsequent encounter Start: 01-17-2023 End: 01-17-[address] Ivette Grimes Work Phone: [facility] Start: 01-09-2023 Refill Ivette Grimes MD Work Phone: Family [facility] Comment on above: Refill Request Start: 01-08-2023 Telephone encounter Ivette Grimes MD Work Phone: Family [facility] Comment on above: Insurance Authorizat ion ([employer] ) Start: 01-04-2023 End: 01-04-2023 Patient encounter procedure Ivette Grimes MD Work Phone: [facility] Comment on above: Post concussive synd roberta (Primary Dx); Headache, unspecified headache type Start: 01-03-2023 End: 01-03-[address] Ivette Grimes Work Phone: [facility] Start: 01-02-2023 End: 01-02-2023 ambulatory [facility] Facility:[facility] Start: 01-01-2023 Telephone encounter Ivette Grimes MD Work Phone: Internal Medicine [place] Comment on above: Patient Update Start: 12-28-2022 End: 12-28-[address] Ivette Grimes Work Phone: [facility] Start: 12-26-2022 End: 12-26-2022 Patient encounter procedure Ivette Grimse MD Work Phone: Family [facility] [place] Comment on above: Post concussion synd roberta (Primary Dx); Essential (primary) hypertension Refill Request Start: 12-24-2022 Refill Karennu lópez APRN.CNP Work Phone: Neurology Comment on above: Refill Request MRI'S need prior aut horization with workman comp Start: 12-20-2022 End: 12-20-[address] Ivette Grimes Work Phone: [facility] Start: 12-14-2022 End: 12-14-2022 Patient encounter procedure Ivette Grimes MD Work Phone: [facility] Comment on above: Post concussion synd roberta (Primary Dx); Essential (primary) hypertension; Microalbuminuria; Type 2 diabetes mellitus without complication, with long-term current use of insulin (HCC) Start: 12-11-2022 Refill Ivette Grimes MD Work Phone: [facility] Comment on above: Refill Request Mri Start: 12-07-2022 End: 12-07-2022 Patient encounter procedure Ivette Price MD Work Phone: Neurology Comment on above: Post concussion synd roberta (Primary Dx); Intractable acute post-traumatic headache; Dizziness; Cervicalgia; History of migraine; LETITIA (obstructive sleep apnea) Start: 12-07-2022 End: 12-07-2022 Patient encounter procedure Ivette Grimes MD Work Phone: [facility] Comment on above: Headache, unspecifie d headache type (Primary Dx); Concussion with loss of consciousness, initial encounter Start: 12-06-2022 End: 12-06-[address] Ivette Grimes Work Phone: [facility] Start: 12-06-2022 End: 12-06-[address] Ivette Grimes Work Phone: [facility] Start: 12-04-2022 Telephone encounter Ivette Grimes MD Work Phone: [facility] Comment on above: Hank requesting records Start: 12-03-2022 End: 12-03-2022 Emergency department patient visit Dr. Ivette Grimes Work Phone: [facility]-Emergency Department Start: 12-03-2022 Telephone encounter Ivette Grimes MD Work Phone: [facility] Comment on above: Patient Update Start: 11-30-2022 End: 11-30-2022 ambulatory Ivette Grimes MD Work Phone: [facility] Comment on above: Headache, unspecifie d headache type (Primary Dx); Concussion with loss of consciousness, initial encounter Start: 11-30-2022 End: 11-30-2022 Telemedicine consultation with patient Ivette Grimes MD Work Phone: [facility] Start: 11-29-2022 Telephone encounter Elle Rasheed MD Work Phone: [facility] [place] Comment on above: Patient Question ( john paul appointment on 12/05/22) Start: 11-27-2022 End: 11-27-2022 Emergency department patient visit Dr. Ivette Grimes Work Phone: [facility]-Emergency Department Start: 11-27-2022 End: 11-27-[address] Ivette Grimes Work Phone: [facility] Comment on above: Worst headache of li fe (Primary Dx); Concussion with loss of consciousness, initial encounter Start: 11-27-[address] [facility] Start: 11-24-2022 End: 11-24-2022 Emergency department patient visit Dr. Ivette Grimes Work Phone: [facility]-Emergency Department Start: 11-23-2022 Refill Ivette Grimes MD Work Phone: [facility] Comment on above: Refill Request Start: 11-22-[address] Gerald [facility] Start: 11-22-2022 End: 11-22-[address] Ivette Grimes Work Phone: [facility] Start: 11-20-2022 Orders Only Elle Rasheed MD Work Phone: [facility] [place] Comment on above: Chronic left shoulde r pain (Primary Dx); Adhesive capsulitis of left shoulder Start: 11-15-2022 Refill Ivette Grimes MD Work Phone: [facility] [place] Comment on above: Refill Request Start: 11-08-2022 End: 11-08-2022 ambulatory ADELINA MARINELLI Facility:[facility] Start: 11-08-2022 Telephone encounter Elle Rasheed MD Work Phone: [facility] Comment on above: Injections Start: 11-08-2022 End: 11-08-2022 Patient encounter procedure Adelina Marinelli FILTER FILLER.LOOP TACKER Work Phone: [facility] Comment on above: Chronic left shoulde r pain (Primary Dx); Adhesive capsulitis of left shoulder; Neuropathic pain; Myofascial pain Start: 11-08-2022 End: 11-08-[address] Ivette Grimes Work Phone: [facility] Start: 10-23-2022 End: 10-23-[address] Ivette Grimes Work Phone: [facility] Start: 10-16-2022 End: 10-16-[address] Ivette Grimes Work Phone: [facility] Start: 10-16-[address] Gerald Grimes Work Phone: [facility]-Physical Therapy Start: 10-15-2022 End: 10-15-[address] Ivette Grimes Work Phone: [facility] Work Phone: Start: 10-15-2022 End: 10-15-[address] Ivette Grimes Work Phone: [facility]-Sleep Lab Start: 10-12-2022 End: 10-12-2022 [facility] Grace Coronel FILTER FILLER.LOOP TACKER Work Phone: Psychiatry Comment on above: VAHE (generalized anx iety disorder) (Primary Dx); Major depressive disorder, recurrent episode, moderate (HCC) Start: 10-10-2022 ambulatory [facility] Comment on above: Botox Start: 10-10-2022 E-mail encounter escobar cedeno caregiver [facility] Provider [facility] Start: 10-06-2022 Refill Tara alcantar FILTER FILLER.LOOP TACKER Work Phone: Neurology Comment on above: Refill Request Start: 10-05-2022 Refill Ivette Grimes MD Work Phone: [facility] Comment on above: Refill Request Start: 10-02-2022 Telephone encounter Adelina lazaro FILTER FILLER.LOOP TACKER Work Phone: [facility] [place] Comment on above: Appointment; Patient Question Start: 10-02-2022 End: 10-02-[address] Ivette Grimes Work Phone: [facility] Start: 09-19-2022 Refill Ivette Grimes MD Work Phone: [facility] Comment on above: Refill Request Start: 09-13-2022 End: 09-13-[address] Ivette Grimes Work Phone: [facility] Start: 09-13-[address] [facility] Start: 09-12-2022 ambulatory Ivette Grimes MD Work Phone: [facility] Start: 09-12-2022 Chart abstracting Rivka Wilson Work Phone: Adult Psychology Comment on above: Behavioral Health So cial Work Start: 09-12-2022 Follow-up encounter Ivette Grimes MD Work Phone: [facility] Comment on above: Follow up (couldn t reply to other message) Start: 09-06-2022 End: 09-06-2022 Refill Ivette Grimes MD Work Phone: [facility] Comment on above: Refill Request Start: 09-06-2022 End: 09-06-[address] Ivette Grimes Work Phone: [facility]-Laboratory, OP Pavilion Start: 09-04-2022 ambulatory Ivette Grimes MD Work Phone: [facility] Comment on above: Migraine/botox quest ion Start: 09-04-2022 End: 09-04-2022 Patient encounter procedure Ivette Grimes MD Work Phone: [facility] Comment on above: Lightheadedness (Carolyn alyssa Dx); Essential (primary) hypertension; Prolonged Q-T interval on ECG; Type 2 diabetes mellitus with microalbuminuria, with long-term current use of insulin (HCC); Fatty liver; LETITIA (obstructive sleep apnea) Start: 09-04-[address] Gerald Grimes Work Phone: [facility]-Physical Therapy Start: 09-03-2022 End: 09-03-2022 ambulatory Ivette Grimes MD Work Phone: [facility] Comment on above: Malaise (Primary Dx) Start: 09-03-2022 End: 09-03-2022 Telemedicine consultation with patient Ivette Grimes MD Work Phone: [facility] Start: 09-03-2022 E-mail encounter fro m caregiver [facility] Start: 09-03-2022 Patient encounter procedure [facility] Comment on above: Botox Appointment Start: 08-30-2022 Non-patient / Non-visit Dr. Regina Grimes Work Phone: [facility] Start: 08-30-2022 End: 08-30-[address] Ivette Grimes Work Phone: [facility] Work Phone: Start: 08-30-2022 End: 08-30-[address] Ivette Grimes Work Phone: [facility]-Cardiovascu lar Services Start: 08-29-2022 End: 08-29-[address] Ivette Grimes Work Phone: [facility] Work Phone: Start: 08-29-2022 End: 08-29-[address] Ivette Grimes Work Phone: [facility]-Laboratory, OP Pavilion Start: 08-27-2022 ambulatory Ivette Grimes MD Work Phone: [facility] Comment on above: Quick question Start: 08-21-2022 Telephone encounter Karen renee FILTER FILLER.LOOP TACKER Work Phone: Neurology Comment on above: Medication Authoriza tion (Botox Approved) Start: 08-21-2022 End: 08-21-[address] Ivette Grimes Work Phone: [facility] Start: 08-16-2022 End: 08-16-[address] Ivette Grimes Work Phone: [facility] [facility] Start: 08-16-[address] Gerald Grimes Work Phone: [facility]-Physical Therapy Start: 08-10-2022 End: 08-10-[address] Ivette Grimes Work Phone: [facility] Work Phone: Start: 08-10-2022 End: 08-10-[address] Ivette Grimes Work Phone: [facility]-Outpatient Breast Imaging Start: 08-08-2022 Chart abstracting Ivette Martínez MD [facility]: [facility] [facility] Start: 08-08-2022 Telephone encounter Adelina lazaro FILTER FILLER.LOOP TACKER Work Phone: [facility] [place] Comment on above: Patient Update Start: 08-08-2022 End: 08-08-[address] Ivette Grimes Work Phone: [facility] Work Phone: Start: 08-08-2022 End: 08-08-[address] Ivette Grimes Work Phone: [facility]-Laboratory, OP Pavilion Start: 08-07-[address] Gerald Grimes Work Phone: [facility]-Physical Therapy Start: 08-07-2022 End: 08-07-[address] Ivette Grimes Work Phone: [facility]-Pulmonary Medicine [facility] Start: 08-06-2022 ambulatory Ivette Grimes MD Work Phone: [facility] Comment on above: Labs Start: 08-02-2022 ambulatory Karen lópez APRN.LOOP TACKER Work Phone: Neurology Comment on above: Migraines Start: 08-02-2022 End: 08-02-[address] Ivette Grimes Work Phone: [facility] Start: 08-02-2022 End: 08-02-2022 Patient encounter procedure Ivette Grimes MD Work Phone: [facility] Comment on above: Type 2 diabetes fred itus with microalbuminuria, with long-term current use of insulin (HCC) (Primary Dx); Fatty liver; LETITIA (obstructive sleep apnea); Microalbuminuria; Lumbar disc disorder; Prolonged Q-T interval on ECG; Fatigue, unspecified type Start: 08-01-2022 ambulatory Ivette Grimes MD Work Phone: [facility] Comment on above: Application Specialist Start: 08-01-2022 Telephone encounter Karen renee APRN.LOOP TACKER Work Phone: Neurology Comment on above: Medication Authoriza tion (Botox referral) Start: 07-24-2022 End: 07-24-[address] Ivette Grimes Work Phone: [facility] Start: 07-24-2022 End: 07-24-[address] Ivette Grimes Work Phone: [facility] Work Phone: Start: 07-24-2022 End: 07-24-[address] Ivette Grimes Work Phone: [facility]-Physical Therapy Start: 07-23-2022 Refill Ivette Grimes MD Work Phone: [facility] Comment on above: Refill Request Start: 07-19-2022 Telephone encounter Elle Rasheed MD Work Phone: [facility] Comment on above: Patient Update (Inje ction questions ) Start: 07-19-2022 End: 07-19-2022 Patient encounter procedure Karen Bansal APRN.LOOP TACKER Work Phone: Neurology Comment on above: Intractable chronic migraine without aura and without status migrainosus (Primary Dx); Mixed migraine and muscle contraction headache Start: 07-19-2022 End: 07-19-2022 ambulatory ADELINA ALBERTOFIELD Facility:[facility] Start: 07-10-2022 Refill Krystle Barahona on PA-C Work Phone: [facility] Comment on above: Refill Request Start: 07-10-2022 End: 07-10-[address] Ivette Grimes Work Phone: [facility] Start: 07-03-2022 ambulatory Tara alcantar APRN.LOOP TACKER Work Phone: Neurology Comment on above: Medication Question Start: 06-28-2022 End: 06-28-[address] Ivette Grimes Work Phone: [facility] Start: 06-22-2022 Refill Ivette Grimes MD Work Phone: [facility] [place] Comment on above: Refill Request Start: 06-07-2022 End: 06-07-2022 Patient encounter procedure Tara Gillette APRN.LOOP TACKER Work Phone: Neurology Comment on above: Intractable migraine without aura and without status migrainosus (Primary Dx); Medication overuse headache; LETITIA (obstructive sleep apnea); Class 3 severe obesity with body mass index (BMI) of 45.0 to 49.9 in adult, unspecified obesity type, unspecified whether serious comorbidity present (HCC) Start: 06-07-2022 Telephone encounter Tara Herndon APRN.LOOP TACKER Work Phone: Neurology Comment on above: Orders Start: 06-05-2022 ambulatory Ivette guzman MD Work Phone: Neurology Comment on above: Labs Start: 06-05-2022 E-mail encounter fro m caregiver Ivette Grimes MD Work Phone: [facility] Start: 06-05-[address] Luz Grimes Work Phone: [facility] Start: 06-04-2022 End: 06-04-[address] Ivette Grimes Work Phone: [facility] Start: 05-29-2022 Telephone encounter Tara Herndon APRN.LOOP TACKER Work Phone: Neurology Comment on above: Appointment Start: 05-29-2022 End: 05-29-[address] Ivette Grimes Work Phone: [facility] Start: 05-24-2022 End: 05-24-2022 ambulatory ADELINA MARINELLI Facility:[facility] Start: 05-24-2022 End: 05-24-2022 Patient encounter procedure Adelina Marinelli FILTER FILLER.LOOP TACKER Work Phone: [facility] Comment on above: Chronic left shoulde r pain (Primary Dx); Adhesive capsulitis of left shoulder; Primary osteoarthritis of left shoulder; Myofascial pain Start: 05-14-2022 End: 05-14-[address] Ivette Grimes Work Phone: [facility] Start: 05-11-2022 Telephone encounter Elle Rasheed MD Work Phone: [facility] [place] Comment on above: Procedure Follow Up Start: 05-10-2022 End: 05-10-2022 ambulatory ELLE RASHEED Facility:[facility] Start: 05-10-2022 End: 05-10-2022 ambulatory Elle Rasheed MD Work Phone: [facility] Comment on above: Procedure Start: 05-10-2022 End: 05-10-2022 Patient encounter procedure Elle Rasheed MD Work Phone: [facility] Start: 05-08-2022 ambulatory Ivette Grimes MD Work Phone: [facility] [place] Start: 05-08-2022 Follow-up encounter Ivette Grimes MD Work Phone: [facility] Comment on above: Follow up from last appointment Start: 05-04-2022 End: 05-04-[address] 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 Ivette Grimes Work Phone: [facility] Start: 04-19-2022 ambulatory Ivette Grimes MD Work Phone: [facility] Comment on above: Lyrica Start: 04-17-2022 End: 04-17-[address] Ivette Grimes Work Phone: [facility] Start: 04-16-2022 Refill Ivette Grimes MD Work Phone: [facility] Comment on above: Refill Request [employer] [...] 04-05-2022 Refill Ivette Grimes MD Work Phone: [facility] Comment on above: Refill Request Start: 04-03-2022 End: 04-03-[address] Ivette Grimes Work Phone: [facility] Start: 03-30-2022 Refill Ivette Grimes MD Work Phone: [facility] Comment on above: Refill Request Start: 03-29-2022 Telephone encounter Elle Rasheed MD Work Phone: [facility] Comment on above: Injections Start: 03-29-2022 End: 03-29-2022 ambulatory ELLE RASHEED Facility:[facility] Start: 03-29-2022 End: 03-29-2022 Patient encounter procedure Elle Rasheed MD Work Phone: [facility] Comment on above: Myofascial pain (Carolyn alyssa Dx); Chronic left shoulder pain; Neuropathic pain; Adhesive capsulitis of left shoulder; Primary osteoarthritis of left shoulder Start: 03-16-2022 Refill Ivette Grimes MD Work Phone: [facility] Comment on above: Refill Request Start: 03-03-2022 Refill M Glen Barahona on PA-C Work Phone: [facility] [place] Comment on above: Refill Request Start: 02-28-2022 End: 02-28-2022 Patient encounter procedure Ivette Grimes MD Work Phone: [facility] [place] Comment on above: Upper back pain (Carolyn alyssa Dx); Acute midline low back pain without sciatica; Type 2 diabetes mellitus with microalbuminuria, with long-term current use of insulin (HCC); LETITIA (obstructive sleep apnea); Lumbar disc disorder; Elevated BP without diagnosis of hypertension Start: 02-27-2022 ambulatory Ivette Grimes MD Work Phone: [facility] Comment on above: ER Start: 02-23-2022 Refill Ivette Grimes MD Work Phone: [facility] [place] Comment on above: Refill Request Start: 02-19-2022 E-mail encounter fro m caregiver Ivette Price Jr., MD Work Phone: [facility] Start: 02-19-2022 Patient encounter procedure Ivette Price MD Work Phone: Neurology Comment on above: Request an Appointme nt Start: 02-08-2022 Chart abstracting Ivette Martínez MD Work Phone: [facility] [place] Start: 02-07-2022 ambulatory Ivette Grimes MD Work Phone: [facility] [place] Comment on above: Lab work Start: 02-07-2022 E-mail encounter fro m caregiver Ivette Grimes MD Work Phone: [facility] [place] Start: 02-07-2022 Telephone encounter Ivette Grimes MD Work Phone: [facility] [place] Comment on above: Results Start: 02-07-2022 End: 02-07-[address] Ivette Grimes Work Phone: [facility]-Laboratory, Future Start: 02-06-[address] Gerald Grimes Work Phone: [facility]-Physical Therapy Start: 02-06-2022 End: 02-06-[address] Ivette Grimes Work Phone: [facility] Start: 02-05-2022 ambulatory Ivette Grimes MD Work Phone: [facility] [place] Comment on above: Lab work Start: 01-29-2022 Telephone encounter Elle Rasheed MD Work Phone: [facility] [place] Comment on above: New Patient Start: 01-23-2022 End: 01-23-[address] Ivette Grimes Work Phone: [facility] Start: 01-09-2022 End: 01-09-[address] Ivette Grimes Work Phone: [facility] Start: 01-09-2022 Non-patient / Non-visit Dr. Regina Grimes Work Phone: [facility] Start: 01-09-2022 End: 01-09-[address] Ivette Grimes Work Phone: [facility]-Cardiovascu lar Services Start: 01-01-2022 End: 01-01-[address] Ivette Grimes Work Phone: [facility] Start: 12-26-2021 End: 12-26-[address] Ivette Grimes Work Phone: [facility] Start: 11-29-2021 End: 11-29-[address] Ivette Grimes Work Phone: [facility] Start: 11-23-2021 End: 11-23-[address] Ivette Grimes Work Phone: [facility] Start: 11-21-2021 End: 11-21-[address] Ivette Grimes Work Phone: [facility] Start: 11-09-2021 End: 11-09-[address] Ivette Grimes Work Phone: [facility] Start: 10-24-2021 End: 10-24-[address] Ivette Grimes Work Phone: [facility] Start: 12-06-2012 End: 02-22-2014 Patient encounter status Stephanie Paz FILTER FILLERStephanyLOOP TACKER Work Phone: [facility] Start: 01-23-2010 End: 02-22-2014 Patient encounter status Stephanie Paz FILTER FILLER.LOOP TACKER Work Phone: [facility] Procedures Date Procedure Procedure Detail [...] Total iron binding c apacity measurement Dr. vIette Grimes MD Work Phone: Start: 07-07-[address] Ivette Grimes MD Work Phone: Start: 07-07-2025 Flow cytometry cell surf marker techl only 1st Dr. Ivette Grimes MD Work Phone: Start: 07-07-2025 Mean corpuscular hem oglobin concentration determination Dr. vIette Grimes MD Work Phone: Start: 07-07-2025 Neutrophil [...] CHOLESTEROL DIRE CT (FOR REMOTE [facility] USE) [facility] Provider Start: 06-05-2025 Lactate dehydrogenas [...] PCP Team Chronic Disease Visit [facility] Start: 06-07-2026 Annual PCP Team Chronic Disease Visit Annual PCP Team Chronic Disease Visit [facility] Start: 05-03-2026 Influenza vaccination Influenza Vaccine (#1) [facility] Comment on above: Postponed from 07/05/2025 (Declined at t his time) Start: 03-02-2026 Annual PCP Team Chronic Disease Visit Annual PCP Team Chronic Disease Visit [facility] Start: 02-04-2026 Glaucoma screening Dilated Retinal Exam [facility] Start: 01-22-2026 Annual PCP Team Chronic Disease Visit Annual PCP Team Chronic Disease Visit [facility] Start: 01-22-2026 BP Controlled (<130/80) BP Controlled (<130/80) [facility] Start: 01-22-2026 Depression Screening Depression Screening [facility] Start: 12-11-2025 Annual PCP Team Chronic Disease Visit Annual PCP Team Chronic Disease Visit [facility] Start: 12-10-2025 Hemoglobin A1c measurement HbA1C [facility] Start: 10-19-2025 Annual PCP Team Chronic Disease Visit Annual PCP Team Chronic Disease Visit [facility] Start: 09-24-2025 Annual PCP Team Chronic Disease Visit Annual PCP Team Chronic Disease Visit [facility] Start: 08-26-2025 End: 08-26-2025 ambulatory 08/26/2025 9:40 AM EDT [facility] [address] [place], [place] [id number] Ivette Grimes MD [address] [place], [place] [id number] Well check [facility] Comment on above: Well check Start: 08-05-2025 Annual PCP Team Chronic Disease Visit Annual PCP Team Chronic Disease Visit [facility] Start: 08-05-2025 BP Controlled (<130/80) BP Controlled (<130/80) [facility] Start: 08-05-2025 Covid-19 Vaccine () Covid-19 Vaccine () [facility] Comment on above: Postponed from 07/05/2024 (Declined at t his time) Start: 08-05-2025 Diabetic foot examination [facility] Start: 08-05-2025 Pneumococcal vaccination Pneumococcal Vaccine (2 of 2 - PCV) [facility] Comment on above: Postponed from 07/28/2020 (Declined at t his time) Start: 08-05-2025 Urine microalbumin profile DTaP,Tdap,Td Vaccine (2 - Td or Tdap) [facility] Comment on above: Postponed from 06/01/2023 (Declined at t his time) Start: 08-04-2025 End: 08-04-2025 Patient encounter procedure 08/04/2025 4:30 PM EDT Office Visit Neurology [address] [place] [address] Fatuma Beckford PA-C [address] [facility] [place] [address] botox Neurology Comment on above: botox Start: 08-03-2025 End: 08-03-2025 Patient encounter procedure 08/03/2025 2:20 PM EDT Office Visit OB/Gynecology [address] [place] [address] Galina Camacho MD [address] [place] [address] annual with pap OB/Gynecology Comment on above: annual with pap Start: 07-31-2025 Hemoglobin A1c measurement HbA1C [facility] Start: 07-19-2025 End: 07-19-2025 Patient encounter procedure 07/19/2025 11:00 AM EDT Office Visit [facility] [place] [address] [place] [address] Ivette Grimes MD [address] [place] [address] 07-07 ICU Hospital follow up [facility] Comment on above: 07-07 ICU Hospital follow up [facility] Start: 07-08-2025 End: 10-07-2025 Microalbumin/Creatinine [Mass Ratio] in Urine ALBUMIN/CREATININE RATIO, URINE Lab Routine Type 2 diabetes mellitus with microalbuminuria, with long-term current use of insulin (HCC) Expected: 07/08/2025, Expires: 10/07/2025 [facility] Comment on above: Expected: 07/08/2025, Expires: Start: 07-07-2025 Patient discharge [facility] Start: 07-07-2025 Care planning and problem solving actions [facility] Start: 07-06-2025 [facility] Start: 07-06-2025 Serum inorganic phosphate measurement [facility] Start: 07-06-2025 Application of intermittent pneumatic compression device [facility] Start: 07-05-2025 Following clinical pathway protocol [facility] Start: 07-05-2025 Assessment of risk of venous thromboembolism [facility] Start: 07-05-2025 Care regimes management [facility] Start: 07-05-2025 Consultation [facility] Start: 07-05-2025 Continuous pulse oximetry [facility] Start: 07-05-2025 Elevation of head of bed [facility] Start: 07-05-2025 Fall prevention [facility] Start: 07-05-2025 Incentive spirometry [facility] Start: 07-05-2025 Inhalation therapy procedure [facility] Start: 07-05-2025 Insertion of catheter into peripheral vein [facility] Start: 07-05-2025 Introduction of urinary catheter [facility] Start: 07-05-2025 Lab findings surveillance [facility] Start: 07-05-2025 Measuring intake and output [facility] Start: 07-05-2025 Methicillin resistant Staphylococcus aureus screening test [facility] Start: 07-05-2025 Nil by mouth [facility] Start: 07-05-2025 Notification of physician [facility] Start: 07-05-2025 Oxygen therapy [facility] Start: 07-05-2025 Patient referral to dietitian [facility] Start: 07-05-2025 Providing care according to standard [facility] Start: 07-05-2025 Provision of activity privileges [facility] Start: 07-05-2025 Referral to service [facility] Start: 07-05-2025 Vital signs measurements [facility] Start: 07-05-2025 End: 07-05-2025 [facility] Start: 07-05-2025 Dual pressure spontaneous ventilation support [facility] Start: 07-05-2025 Measurement of occult blood in stool specimen using immunoassay [facility] Start: 07-05-2025 Verification routine [facility] Start: 07-05-2025 Admission procedure [facility] Start: 07-05-2025 [facility] Start: 07-05-2025 End: 07-06-2025 [facility] Start: 07-05-2025 Bacteria identified in Blood by Culture Blood Culture [facility] Start: 07-05-2025 Bacteria identified in Urine by Culture Urine Culture [facility] Start: 07-05-2025 Blood culture Blood Culture [facility] Start: 07-05-2025 Influenza vaccination Influenza Vaccine (#1) [facility] Start: 07-05-2025 End: 10-04-2025 Urinalysis complete panel - Urine URINALYSIS, WITH MICROSCOPIC Lab Routine Flank pain Proteinuria, unspecified type Expected: 07/05/2025, Expires: 10/04/2025 [facility] Comment on above: Expected: 07/05/2025, Expires: Start: 07-04-2025 Hepatitis B screening Urine Albumin:Creatinine Ratio [facility] Start: 07-04-2025 Hepatitis B surface antibody level LDL Cholesterol [facility] Start: 07-03-2025 Annual PCP Team Chronic Disease Visit Annual PCP Team Chronic Disease Visit [facility] Start: 06-23-2025 Anes arthrs humeral h/n strnclav & shoulder nos [facility] Start: 06-23-2025 Anterior decompression of shoulder joint [facility] Start: 06-23-2025 Arthroscopy shoulder surg debridement limited [facility] Start: 06-23-2025 Arthroscopy shoulder w/coracoacrm ligmnt release BRY ARTHRS SRG DECOMPRESSION [facility] Start: 06-23-2025 Injection aa&/strd brachial plexus [facility] Start: 06-23-2025 Patient discharge [facility] Start: 06-23-2025 Application of ice collar, cap or bag [facility] Start: 06-23-2025 Assessment of risk of venous thromboembolism [facility] Start: 06-23-2025 Catheterization of vein [facility] Start: 06-23-2025 Continuous positive airway pressure ventilation treatment [facility] Start: 06-23-2025 Following clinical pathway protocol [facility] Start: 06-23-2025 Incentive spirometry [facility] Start: 06-23-2025 Introduction of urinary catheter [facility] Start: 06-23-2025 Vital signs measurements [facility] Start: 06-23-2025 [facility] Start: 06-10-2025 Electrocardiographic procedure [facility] Start: 06-07-2025 End: 09-06-2025 Cholesterol in LDL [Mass/volume] in Serum or Plasma LDL CHOLESTEROL DIR Lab Routine Type 2 diabetes mellitus with microalbuminuria, with long-term current use of insulin (HCC) Essential (primary) hypertension Expected: 06/07/2025, Expires: 09/06/2025 [facility] Comment on above: Expected: 06/07/2025, Expires: Start: 06-07-2025 End: 09-06-2025 Hemoglobin A1c in Blood HEMOGLOBIN A1C Lab Routine Type 2 diabetes mellitus with microalbuminuria, with long-term current use of insulin (HCC) Expected: 06/07/2025, Expires: 09/06/2025 [facility] Work Phone: Comment on above: Expected: 06/07/2025, Expires: Start: 06-03-2025 Annual PCP Team Chronic Disease Visit Annual PCP Team Chronic Disease Visit [facility] Start: 05-03-2025 Influenza vaccination Influenza Vaccine (#1) [facility] Comment on above: Postponed from 07/05/2024 (Declined at t his time) Start: 04-21-2025 End: 04-21-2025 Patient encounter procedure 04/21/2025 2:00 PM EDT Office Visit Neurology [address] [place] [address] Kristen Enriquez APRN.LOOP TACKER [address] [place] [address] botox Neurology Comment on above: botox Start: 03-09-2025 End: 03-09-2025 Patient encounter procedure 03/09/2025 7:25 AM EDT [facility] Neurology [address] [place] [address] Amanda Arteaga, PA-C [address] [place] [address] consult botox injection for headache Neurology Comment on above: consult botox injection for headache Start: 01-22-2025 End: 04-23-2025 Basic metabolic 2000 panel - Serum or Plasma BASIC METABOLIC PANEL Lab Routine Essential (primary) hypertension Expected: 01/22/2025, Expires: 04/23/2025 [facility] Comment on above: Expected: 01/22/2025, Expires: Start: 01-22-2025 End: 04-23-2025 Hemoglobin A1c in Blood HEMOGLOBIN A1C Lab Routine Type 2 diabetes mellitus with microalbuminuria, with long-term current use of insulin (HCC) Expected: 01/22/2025, Expires: 04/23/2025 [facility] Work Phone: Comment on above: Expected: 01/22/2025, Expires: Start: 01-01-2025 Hemoglobin A1c measurement HbA1C [facility] Start: 12-26-2024 BP Controlled (<130/80) BP Controlled (<130/80) [facility] Start: 12-25-2024 End: 12-25-2024 Patient encounter procedure 12/25/2024 10:15 AM EST Office Visit OB/Gynecology [address] [place], [place] [id number] Karol Mancera APRN.LOOP TACKER [address] [place], [place] [id number] annual OB/Gynecology Comment on above: annual Start: 12-17-2024 End: 12-17-2024 ambulatory 12/17/2024 9:40 AM EST [facility] Medicine [facility] [address] [place], [place] [id number] Ivette Grimes MD [address] [place], [place] [phone] [facility] Medicine [facility] Comment on above: General Start: 12-11-2024 End: 03-12-2025 Comprehensive metabolic 2000 panel - Serum or Plasma COMPREHENSIVE METABOLIC PANEL Lab Routine Hypokalemia Expected: 12/11/2024, Expires: 03/12/2025 [facility] Comment on above: Expected: 12/11/2024, Expires: Start: 12-09-2024 End: 12-09-2024 Patient encounter procedure 12/09/2024 2:20 PM EST Office Visit OB/Gynecology [address] [place] [id number] Galina Camacho MD [address] [place] [phone] Check up OB/Gynecology Comment on above: Check up Start: 12-09-2024 Annual PCP Team Chronic Disease Visit Annual PCP Team Chronic Disease Visit [facility] Start: 12-09-2024 BP Controlled (<130/80) BP Controlled (<130/80) [facility] Start: 12-09-2024 Covid-19 Vaccine () Covid-19 Vaccine () [facility] Comment on above: Postponed from 07/05/2023 (Declined at t his time) Start: 12-09-2024 Depression Screening Depression Screening [facility] Start: 11-11-2024 [facility] Start: 11-06-2024 Annual PCP Team Chronic Disease Visit Annual PCP Team Chronic Disease Visit [facility] Start: 10-20-2024 End: 10-20-2024 Patient encounter procedure 10/20/2024 2:20 PM EST Office Visit OB/Gynecology [address] [place] [id number] Galina Camacho MD [address] [place] [place] [id number] Check up OB/Gynecology Comment on above: Check up Start: 09-13-2024 BP Controlled (<130/80) BP Controlled (<130/80) [facility] Start: 09-12-2024 Glaucoma screening Dilated Retinal Exam [facility] Start: 09-10-2024 End: 09-10-2024 Patient encounter procedure Neurology Comment on above: botox Start: 09-03-2024 End: 09-03-2024 Patient encounter procedure 09/03/2024 1:00 PM EDT Office Visit Neurology [address] [place] [address] [place] [id number] Fatuma Beckford PA-C [address] [facility] [place] [address] botox Neurology Comment on above: botox Start: 08-05-2024 Depression Screening Depression Screening [facility] Comment on above: Postponed from 2000 (Declined at t his time) Start: 08-05-2024 End: 08-05-2024 Patient encounter procedure 08/05/2024 8:00 AM EDT Office Visit [facility] [address] [place], [place] [id number] Ivette Grimes MD [address] [place], [place] [phone] [facility] Comment on above: My health Start: 07-15-2024 Annual PCP Team Chronic Disease Visit Annual PCP Team Chronic Disease Visit [facility] Start: 07-05-2024 Covid-19 Vaccine ( season) Covid-19 Vaccine ( season) [facility] Start: 07-05-2024 Covid-19 Vaccine ( season) Covid-19 Vaccine ( season) [facility] Start: 07-05-2024 Influenza vaccination Influenza Vaccine (#1) [facility] Start: 07-03-2024 End: 10-02-2024 CBC W Auto Differential panel - Blood COMPLETE BLOOD COUNT AND DIFFERENTIAL Lab Routine Type 2 diabetes mellitus with microalbuminuria, with long-term current use of insulin (HCC) Expected: 07/03/2024, Expires: 10/02/2024 [facility] Work Phone: Comment on above: Expected: 07/03/2024, Expires: Start: 07-03-2024 End: 10-02-2024 Comprehensive metabolic 2000 panel - Serum or Plasma COMPREHENSIVE METABOLIC PANEL Lab Routine Type 2 diabetes mellitus with microalbuminuria, with long-term current use of insulin (HCC) Expected: 07/03/2024, Expires: 10/02/2024 [facility] Comment on above: Expected: 07/03/2024, Expires: Start: 07-03-2024 End: 10-02-2024 Hemoglobin A1c in Blood HEMOGLOBIN A1C Lab Routine Type 2 diabetes mellitus with microalbuminuria, with long-term current use of insulin (HCC) Expected: 07/03/2024, Expires: 10/02/2024 [facility] Comment on above: Expected: 07/03/2024, Expires: 4 Start: 07-03-2024 End: 10-02-2024 Lipid 1996 panel - Serum or Plasma LIPID PANEL BASIC Lab Routine Type 2 diabetes mellitus with microalbuminuria, with long-term current use of insulin (HCC) Expected: 07/03/2024, Expires: 10/02/2024 [facility] Comment on above: Expected: 07/03/2024, Expires: 4 Start: 07-03-2024 End: 10-02-2024 Microalbumin/Creatinine [Mass Ratio] in Urine ALBUMIN/CREATININE RATIO, URINE Lab Routine Type 2 diabetes mellitus with microalbuminuria, with long-term current use of insulin (HCC) Expected: 07/03/2024, Expires: 10/02/2024 [facility] Comment on above: Expected: 07/03/2024, Expires: Start: 06-06-2024 ANNUAL PCP TEAM CHRONIC DISEASE VISIT ANNUAL PCP TEAM CHRONIC DISEASE VISIT [facility] Start: 06-06-2024 COVID-19 VACCINE (4 - Moderna series) COVID-19 VACCINE (4 - Moderna series) [facility] Comment on above: Postponed from 12/13/2021 (Declined at t his time) Start: 06-06-2024 Diabetic foot examination Diabetic Foot Exam [facility] Start: 06-06-2024 [facility] Comment on above: Postponed from 06/01/2023 (Declined at t his time) Start: 06-05-2024 Hemoglobin A1c measurement [facility]C [facility] Start: 05-17-2024 BP CONTROLLED (<130/80) BP CONTROLLED (<130/80) [facility] Start: 03-26-2024 End: 03-26-2024 Patient encounter procedure 03/26/2024 10:30 AM EDT Office Visit Neurology [address] [address] Fatuma Beckford PA-C [address] [place] [address] botox 4 of 4 Neurology Comment on above: botox 4 of 4 Start: 03-05-2024 BP CONTROLLED (<130/80) BP CONTROLLED (<130/80) [facility] Start: 03-05-2024 PNEUMOCOCCAL (2 - PCV) PNEUMOCOCCAL (2 - PCV) [facility] Comment on above: Postponed from 07/28/2020 (Declined at t his time) Start: 03-05-2024 Pneumococcal vaccination [facility] Comment on above: Postponed from 07/28/2020 (Declined at t his time) Start: 03-04-2024 Hepatitis B screening URINE ALBUMIN:CREATININE RATIO [facility] Start: 02-29-2024 ANNUAL PCP TEAM CHRONIC DISEASE VISIT ANNUAL PCP TEAM CHRONIC DISEASE VISIT [facility] Start: 02-04-2024 Bacteria identified in Urine by Culture [facility] Start: 02-04-2024 [facility] Start: 02-04-2024 [facility] Start: 02-01-2024 ANNUAL PCP TEAM CHRONIC DISEASE VISIT ANNUAL PCP TEAM CHRONIC DISEASE VISIT [facility] Start: 01-18-2024 ANNUAL PCP TEAM CHRONIC DISEASE VISIT ANNUAL PCP TEAM CHRONIC DISEASE VISIT [facility] Start: 01-05-2024 ANNUAL PCP TEAM CHRONIC DISEASE VISIT ANNUAL PCP TEAM CHRONIC DISEASE VISIT [facility] Start: 12-26-2023 ANNUAL PCP TEAM CHRONIC DISEASE VISIT ANNUAL PCP TEAM CHRONIC DISEASE VISIT [facility] Start: 12-18-2023 HPV TESTING HPV TESTING [facility] Start: 12-18-2023 PAP TESTING PAP TESTING [facility] Start: 12-18-2023 Screening for malignant neoplasm of cervix [facility] Start: 12-14-2023 ANNUAL PCP TEAM CHRONIC DISEASE VISIT ANNUAL PCP TEAM CHRONIC DISEASE VISIT [facility] Start: 12-07-2023 ANNUAL PCP TEAM CHRONIC DISEASE VISIT ANNUAL PCP TEAM CHRONIC DISEASE VISIT [facility] Start: 12-07-2023 End: 02-06-2024 CBC W Auto Differential panel - Blood CBC + DIFF Lab Routine Type 2 diabetes mellitus with microalbuminuria, with long-term current use of insulin (HCC) Expected: 12/07/2023, Expires: 02/06/2024 [facility] Work Phone: Comment on above: Expected: 12/07/2023, Expires: Start: 12-07-2023 End: 02-06-2024 Comprehensive metabolic 2000 panel - Serum or Plasma COMP METABOLIC PANEL Lab Routine Type 2 diabetes mellitus with microalbuminuria, with long-term current use of insulin (HCC) Expected: 12/07/2023, Expires: 02/06/2024 [facility] Work Phone: Comment on above: Expected: 12/07/2023, Expires: Start: 12-07-2023 End: 02-06-2024 Hemoglobin A1c in Blood HGB A1C Lab Routine Type 2 diabetes mellitus with microalbuminuria, with long-term current use of insulin (HCC) Expected: 12/07/2023, Expires: 02/06/2024 [facility] Work Phone: Comment on above: Expected: 12/07/2023, Expires: Start: 12-07-2023 End: 02-06-2024 Lipid 1996 panel - Serum or Plasma LIPID PANEL BASIC Lab Routine Type 2 diabetes mellitus with microalbuminuria, with long-term current use of insulin (HCC) Expected: 12/07/2023, Expires: 02/06/2024 [facility] Work Phone: Comment on above: Expected: 12/07/2023, Expires: Start: 11-30-2023 ANNUAL PCP TEAM CHRONIC DISEASE VISIT ANNUAL PCP TEAM CHRONIC DISEASE VISIT [facility] Start: 11-27-2023 ANNUAL PCP TEAM CHRONIC DISEASE VISIT ANNUAL PCP TEAM CHRONIC DISEASE VISIT [facility] Start: 11-04-2023 Behavioral Health Screening Behavioral Health Screening [facility] Start: 11-04-2023 Depression Assessment Depression Assessment [facility] Start: 10-31-2023 BP CONTROLLED (<130/80) BP CONTROLLED (<130/80) [facility] Start: 10-27-2023 [facility] Start: 09-04-2023 ANNUAL PCP TEAM CHRONIC DISEASE VISIT ANNUAL PCP TEAM CHRONIC DISEASE VISIT [facility] Start: 09-04-2023 Hemoglobin A1c measurement HbA1C [facility] Start: 09-04-2023 Hemoglobin A1c/Hemoglobin.total in Blood HBA1C [facility] Start: 09-03-2023 ANNUAL PCP TEAM CHRONIC DISEASE VISIT ANNUAL PCP TEAM CHRONIC DISEASE VISIT [facility] Start: 08-10-2023 Mammography [facility] Start: 08-10-2023 Screening for malignant neoplasm of breast Mammogram Screening [facility] Start: 08-08-2023 Hepatitis B surface antibody level LDL CHOLESTEROL [facility] Start: 08-07-2023 Patient discharge [facility] Start: 08-06-2023 Telepractice consultation [facility] Start: 08-05-2023 End: 08-05-2023 [facility] Start: 08-05-2023 Following clinical pathway protocol [facility] Start: 08-05-2023 Assessment of risk of venous thromboembolism [facility] Start: 08-05-2023 Cardiac monitoring [facility] Start: 08-05-2023 Catheterization of vein [facility] Start: 08-05-2023 Continuous pulse oximetry [facility] Start: 08-05-2023 Elevation of head of bed [facility] Start: 08-05-2023 Exercises [facility] Start: 08-05-2023 Implementation of planned interventions [facility] Start: 08-05-2023 Insertion of catheter into peripheral vein [facility] Start: 08-05-2023 Measuring intake and output [facility] Start: 08-05-2023 Notification of physician [facility] Start: 08-05-2023 Oxygen therapy [facility] Start: 08-05-2023 Providing care according to standard [facility] Start: 08-05-2023 Referral to occupational therapist [facility] Start: 08-05-2023 Referral to service [facility] Start: 08-05-2023 Tobacco use cessation education [facility] Start: 08-05-2023 Vital signs measurements [facility] Start: 08-05-2023 Verification routine [facility] Start: 08-05-2023 Admission procedure [facility] Start: 08-05-2023 Oxygen therapy [facility] Start: 08-05-2023 [facility] Start: 08-05-2023 Inhalation therapy procedure [facility] Start: 08-05-2023 Patient referral to dietitian [facility] Start: 08-02-2023 3 comp foot exam completed DIABETIC FOOT EXAM [facility] Start: 08-02-2023 ANNUAL PCP TEAM CHRONIC DISEASE VISIT ANNUAL PCP TEAM CHRONIC DISEASE VISIT [facility] Start: 08-02-2023 Diabetic foot examination [facility] Start: 07-05-2023 Covid-19 Vaccine () Covid-19 Vaccine () [facility] Start: 07-05-2023 Influenza vaccination [facility] Start: 06-07-2023 End: 08-07-2023 Cobalamin (Vitamin B12) [Mass/volume] in Serum or Plasma VITAMIN B12 BLOOD Lab Routine Memory loss Attention and concentration deficit Expected: 06/07/2023, Expires: 08/07/2023 [facility] Work Phone: Comment on above: Expected: 06/07/2023, Expires: 3 Start: 06-07-2023 End: 08-07-2023 Thyrotropin [Units/volume] in Serum or Plasma TSH BLD Lab Routine Memory loss Attention and concentration deficit Expected: 06/07/2023, Expires: 08/07/2023 [facility] Work Phone: Comment on above: Expected: 06/07/2023, Expires: Start: 06-07-2023 End: 08-07-2023 Thyroxine (T4) free [Mass/volume] in Serum or Plasma T4 FREE/FREE THYROX Lab Routine Memory loss Attention and concentration deficit Expected: 06/07/2023, Expires: 08/07/2023 [facility] Work Phone: Comment on above: Expected: 06/07/2023, Expires: 3 Start: 06-01-2023 Urine microalbumin profile [facility] Start: 05-01-2023 ANNUAL PCP TEAM CHRONIC DISEASE VISIT ANNUAL PCP TEAM CHRONIC DISEASE VISIT [facility] Start: 04-02-2023 [facility] Start: 03-29-2023 Adult depression screening assessment DEPRESSION SCREENING [facility] Start: 02-28-2023 End: 04-30-2023 ALBUMIN/CREAT RATIO RND UR ALBUMIN/CREAT RATIO RND UR Lab Routine Type 2 diabetes mellitus with microalbuminuria, with long-term current use of insulin (HCC) Expected: 02/28/2023, Expires: 04/30/2023 [facility] Work Phone: Comment on above: Expected: 02/28/2023, Expires: 3 Start: 02-28-2023 ANNUAL PCP TEAM CHRONIC DISEASE VISIT ANNUAL PCP TEAM CHRONIC DISEASE VISIT [facility] Start: 02-28-2023 End: 04-30-2023 Basic metabolic 2000 panel - Serum or Plasma BASIC METABOLIC PNL Lab Routine Myalgia Expected: 02/28/2023, Expires: 04/30/2023 [facility] Work Phone: Comment on above: Expected: 02/28/2023, Expires: 3 Start: 02-28-2023 End: 04-30-2023 CBC W Auto Differential panel - Blood CBC + DIFF Lab Routine Myalgia Expected: 02/28/2023, Expires: 04/30/2023 [facility] Work Phone: Comment on above: Expected: 02/28/2023, Expires: 3 Start: 02-28-2023 End: 04-30-2023 Hemoglobin A1c in Blood HGB A1C Lab Routine Type 2 diabetes mellitus with microalbuminuria, with long-term current use of insulin (HCC) Expected: 02/28/2023, Expires: 04/30/2023 [facility] Work Phone: Comment on above: Expected: 02/28/2023, Expires: 3 Start: 02-28-2023 End: 04-30-2023 Iron and Iron binding capacity panel - Serum or Plasma IRON + TIBC Lab Routine Myalgia Expected: 02/28/2023, Expires: 04/30/2023 [facility] Work Phone: Comment on above: Expected: 02/28/2023, Expires: 3 Start: 02-28-2023 End: 04-30-2023 Magnesium [Mass/volume] in Serum or Plasma MAGNESIUM BLD Lab Routine Myalgia Expected: 02/28/2023, Expires: 04/30/2023 [facility] Work Phone: Comment on above: Expected: 02/28/2023, Expires: 3 Start: 02-07-2023 Hepatitis B screening URINE ALBUMIN:CREATININE RATIO [facility] Start: 02-07-2023 Hepatitis B surface antibody level LDL CHOLESTEROL [facility] Start: 02-06-2023 Hemoglobin A1c/Hemoglobin.total in Blood HBA1C [facility] Start: 01-25-2023 ANNUAL PCP TEAM CHRONIC DISEASE VISIT ANNUAL PCP TEAM CHRONIC DISEASE VISIT [facility] Start: 11-04-2022 DEPRESSION ASSESSMENT DEPRESSION ASSESSMENT [facility] Start: 10-16-2022 End: 12-16-2022 Thyrotropin [Units/volume] in Serum or Plasma TSH BLD Lab Routine Lightheadedness Expected: 10/16/2022, Expires: 12/16/2022 [facility] Work Phone: Comment on above: Expected: 10/16/2022, Expires: 3 Start: 10-06-2022 Adult depression screening assessment DEPRESSION SCREENING [facility] Start: 10-05-2022 Glaucoma screening Dilated Retinal Exam [facility] Start: 10-05-2022 Hepatitis C antibody, confirmatory test DILATED RETINAL EXAM [facility] Start: 09-04-2022 End: 11-04-2022 Basic metabolic 2000 panel - Serum or Plasma BASIC METABOLIC PNL Lab Routine Lightheadedness Expected: 09/04/2022, Expires: 11/04/2022 [facility] Work Phone: Comment on above: Expected: 09/04/2022, Expires: 3 Start: 09-04-2022 End: 11-04-2022 CBC W Auto Differential panel - Blood CBC + DIFF Lab Routine Lightheadedness Expected: 09/04/2022, Expires: 11/04/2022 [facility] Work Phone: Comment on above: Expected: 09/04/2022, Expires: 3 Start: 08-16-2022 Patient referral [facility] Work Phone: Start: 08-09-2022 Hemoglobin A1c/Hemoglobin.total in Blood HBA1C [facility] Start: 08-02-2022 End: 10-02-2022 Hemoglobin A1c in Blood HGB A1C Lab Routine Type 2 diabetes mellitus with microalbuminuria, with long-term current use of insulin (HCC) Expected: 08/02/2022, Expires: 10/02/2022 [facility] Work Phone: Comment on above: Expected: 08/02/2022, Expires: 2 Start: 08-02-2022 End: 10-02-2022 Lipid 1996 panel - Serum or Plasma LIPID PANEL BASIC Lab Routine Type 2 diabetes mellitus with microalbuminuria, with long-term current use of insulin ([facility]) Expected: 08/02/2022, Expires: 10/02/2022 [facility] Work Phone: Comment on above: Expected: 08/02/2022, Expires: 2 Start: 08-02-2022 End: 10-02-2022 Thyrotropin [Units/volume] in Serum or Plasma TSH BLD Lab Routine Fatigue, unspecified type Expected: 08/02/2022, Expires: 10/02/2022 [facility] Work Phone: Comment on above: Expected: 08/02/2022, Expires: 2 Start: 07-20-2022 3 comp foot exam completed DIABETIC FOOT EXAM [facility] Start: 07-05-2022 Influenza vaccination INFLUENZA (#1) [facility] Start: 06-28-2022 Hepatitis B surface antibody level LDL CHOLESTEROL [facility] Start: 2022 Mammography MAMMOGRAM [facility] Start: 06-05-2022 End: 08-05-2022 Bacteria identified in Urine by Culture URINE CULTURE Microbiology Routine Proteinuria, unspecified type Leukocytosis, unspecified type Expected: 06/05/2022, Expires: 08/05/2022 [facility] Work Phone: Comment on above: Expected: 06/05/2022, Expires: 2 Start: 06-05-2022 End: 08-05-2022 Urinalysis complete panel - Urine URINALYSIS, WITH MICROSCOPIC Lab Routine Proteinuria, unspecified type Leukocytosis, unspecified type Expected: 06/05/2022, Expires: 08/05/2022 [facility] Work Phone: Comment on above: [...] Medication overuse headache Expected: 04/09/2022, Expires: 06/09/2022 [facility] Work Phone: Comment on above: [...] Medication overuse headache Expected: 04/09/2022, Expires: 06/09/2022 [facility] Work Phone: Comment on above: Expected: 04/09/2022, Expires: 2 Start: 12-26-2021 Patient referral [facility] Work Phone: Start: 12-13-2021 COVID-19 VACCINE (4 - Booster for Moderna series) COVID-19 VACCINE (4 - Booster for Moderna series) [facility] Start: 12-13-2021 COVID-19 VACCINE (4 - Moderna series) COVID-19 VACCINE (4 - Moderna series) [facility] Start: 11-04-2021 DEPRESSION ASSESSMENT DEPRESSION ASSESSMENT [facility] Start: 08-11-2021 Hepatitis B screening URINE ALBUMIN:CREATININE RATIO [facility] Start: 07-15-2021 Hemoglobin A1c/Hemoglobin.total in Blood HBA1C [facility] Start: 07-28-2020 PNEUMOCOCCAL (2 - PCV) P[facility]UMOCOCCAL (2 - PCV) [facility] Start: 07-28-2020 Pneumococcal vaccination Pneumococcal Vaccine (2 of 2 - PCV) [facility] Start: 09-24-2017 End: 09-24-2017 Appointment Appointment [facility] Work Phone: Start: 09-23-2017 End: 09-23-2017 Appointment Appointment [facility] Work Phone: Start: 09-17-2017 End: 09-17-2017 Appointment Appointment [facility] Work Phone: Start: 09-16-2017 End: 09-16-2017 Appointment Appointment [facility] Work Phone: Start: 09-12-2017 End: 09-12-2017 Appointment Appointment [facility] Work Phone: Start: 09-10-2017 End: 09-10-2017 Appointment Appointment [facility] Work Phone: Start: 09-09-2017 End: 09-09-2017 Appointment Appointment [facility] Work Phone: Start: 09-05-2017 End: 09-05-2017 Appointment Appointment [facility] Work [...] lumbar w/o contrast material MRI Lumbar Spine [facility] Work Phone: Start: 06-06-2017 End: 06-06-2017 Mri spinal canal lumbar w/o contrast material MRI Lumbar Spine [facility] Work Phone: Start: 05-10-2017 End: 05-10-2017 Radex spine lumbosacral minimum 4 views X-Ray, Spine, Lumbosacral 2-3 views [facility] Work Phone: Start: 05-09-2017 End: 05-09-2017 Physical Therapy General Physical Therapy [facility], [address] [place] [address], [id number] [facility] Work Phone: Start: 2001 HEPATITIS B (1 of 3 - Risk 3-dose series) HEPATITIS B (1 of 3 - Risk 3-dose series) [facility] Start: 2000 BP CONTROLLED (<130/80) BP CONTROLLED (<130/80) [facility] Start: 2000 Depression Screening Depression Screening [facility] Start: 1982 HEPATITIS B (1 of 3 - 3-dose series) HEPATITIS B (1 of 3 - 3-dose series) [facility] Alanine aminotransfe rase [Enzymatic activity/volume] in Serum or Plasma [facility] Albumin [Mass/volume ] in Serum or Plasma [facility] Alkaline phosphatase [Enzymatic activity/volume] in Serum or Plasma [facility] Anion gap in Serum or Plasma [facility] Bilirubin, total measurement [facility] BUN/Creatinine ratio [facility] Calcium [Mass/volume ] in Serum or Plasma [facility] Carbon dioxide, tota l [Moles/volume] in Central venous blood [facility] Chiropractic manipulation [facility] Creatinine [Mass/vol ume] in Serum or Plasma [facility] End: 03-29-2024 Ct soft tissue neck w/contrast material CT NECK SOFT TISSUE W IVCON Radiology Routine Soft tissue mass 1 Occurrences starting 02/28/2023 until 03/29/2024 [facility] Work Phone: Comment on above: 1 Occurrences starting 02/28/2023 until 03/29/2024 End: 12-17-2025 DBT Breast - bilateral screening FLASH SCREENING W JAQUELIN Radiology Routine Encounter for screening mammogram for breast cancer 1 Occurrences starting 11/17/2024 until 12/17/2025 [facility] Work Phone: Comment on above: 1 Occurrences starting 11/17/2024 until 12/17/2025 End: 07-07-2026 DBT Breast - bilateral screening FLASH SCREENING W JAQUELIN Radiology Routine Encounter for screening mammogram for breast cancer 1 Occurrences starting 06/07/2025 until 07/07/2026 [facility] Comment on above: 1 Occurrences starting 06/07/2025 until 07/07/2026 End: 09-04-2023 ECG COMPLETE ECG COMPLETE ECG Routine Prolonged Q-T interval on ECG 1 Occurrences starting 09/04/2022 until 09/04/2023 [facility] Work Phone: Comment on above: 1 Occurrences starting 09/04/2022 until 09/04/2023 End: 03-05-2024 EPIL EEG ROUTINE EPIL EEG ROUTINE NEUROLOGY Routine Altered awareness, transient 1 Occurrences starting 03/05/2023 until 03/05/2024 [facility] Work Phone: Comment on above: 1 Occurrences starting 03/05/2023 until 03/05/2024 Erythrocyte mean cor puscular volume determination [facility] Glucose [Mass/volume ] in Serum or Plasma [facility] Hematocrit [Volume F raction] of Blood [facility] Hemoglobin [Mass/vol ume] in Blood [facility] Hemoglobin A1c/Hemoglobin.total in Blood [facility] Hemoglobin A1c/Hemoglobin.total in Blood [facility] Injection aa&/strd suprascapular nerve INJECT NERV BLCK,SUPRASCAP N. Procedures Routine Adhesive capsulitis of left shoulder Primary osteoarthritis of left shoulder Ordered: 05/10/2022 [facility] Work Phone: Comment on above: Ordered: 05/10/2022 Iron [Mass/mass] in Unspecified specimen [facility] Iron saturation [Mas s Fraction] in Serum or Plasma [facility] Leukocytes [#/volume ] in Blood [facility] Magnesium [Mass/volu me] in Serum or Plasma [facility] Work Phone: Magnesium measurement [facility] End: 07-05-2024 FLASH SCREENING FLASH SCREENING Radiology Routine Encounter for screening mammogram for malignant neoplasm of breast 1 Occurrences starting 06/06/2023 until 07/05/2024 [facility] Work Phone: Comment on above: 1 Occurrences starting 06/06/2023 until 07/05/2024 End: 01-07-2025 FLASH SCREENING W JAQUELIN FLASH SCREENING W JAQUELIN Radiology Routine Encounter for screening mammogram for malignant neoplasm of breast 1 Occurrences starting 12/09/2023 until 01/07/2025 [facility] Work Phone: Comment on above: 1 Occurrences starting 12/09/2023 until 01/07/2025 Mean corpuscular hem oglobin concentration determination [facility] Mean corpuscular hem oglobin determination [facility] Measurement of renal function [facility] Methicillin resistan t Staphylococcus aureus (MRSA) DNA [Presence] in Nose by ALLYSON with probe detection [facility] MR Lower Extremity Joint [facility] End: 01-06-2024 Mri brain brain stem w/o contrast material MRI BRAIN WO IVC Radiology Routine Post concussion syndrome Intractable acute post-traumatic headache Dizziness Cervicalgia 1 Occurrences starting 12/07/2022 until 01/06/2024 [facility] Work Phone: Comment on above: 1 Occurrences starting 12/07/2022 until 01/06/2024 End: 01-06-2024 Mri spinal canal cervical w/o contrast matrl MRI CERVICAL SPINE WO IVCON Radiology Routine Post concussion syndrome Intractable acute post-traumatic headache Dizziness Cervicalgia 1 Occurrences starting 12/07/2022 until 01/06/2024 [facility] Work Phone: Comment on above: 1 Occurrences starting 12/07/2022 until 01/06/2024 Neutrophil count [facility] Neutrophil percent differential count [facility] Patient Education [facility] Work Phone: Patient referral [facility] Work Phone: Platelets [#/volume] in Blood [facility] Potassium measurement [facility] Red blood cell count [facility] Red cell distributio n width determination [facility] Serum chloride measurement [facility] Sodium measurement [facility] Total iron binding c apacity measurement [facility] Total protein measurement [facility] Urea nitrogen [Mass/ volume] in Serum or Plasma [facility] Urine culture [facility] End: 03-01-2024 US HEAD/NECK SOFT TISSUE OTHER US HEAD/NECK SOFT TISSUE OTHER Radiology Routine Soft tissue mass 1 Occurrences starting 01/31/2023 until 03/01/2024 [facility] Work Phone: Comment on above: 1 Occurrences starting 01/31/2023 until 03/01/2024 [facility] Work Phone: End: 08-20-2025 XR Chest PA and Lateral XR CHEST 2V FRONTAL/LAT Radiology Routine Cough, unspecified type 1 Occurrences starting 07/21/2024 until 08/20/2025 [facility] Work Phone: Comment on above: 1 Occurrences starting 07/21/2024 until 08/20/2025 End: 01-10-2026 XR Chest PA and Lateral XR CHEST 2V FRONTAL/LAT Radiology STAT Sinobronchitis 1 Occurrences starting 12/11/2024 until 01/10/2026 [facility] Work Phone: Comment on above: 1 Occurrences starting 12/11/2024 until 01/10/2026 End: 05-31-2023 XR RIBS/CHEST 3V AP RIB/OBLS/CXR LEFT XR RIBS/CHEST 3V AP RIB/OBLS/CXR LEFT Radiology Routine Rib pain 1 Occurrences starting 05/01/2022 until 05/31/2023 [facility] Work Phone: Comment on above: 1 Occurrences starting 05/01/2022 until 05/31/2023 [facility] Immunizations Immunization Date Immunization Notes Care Provider Fa [facility] 09-08-2024 influenza, seasonal, injectable, preservative free Dr. Ivette Grimes MD Work Phone: [facility] 09-08-2024 influenza virus vacc ine, unspecified formulation Ivette Grimes MD Work Phone: [facility] 09-23-2023 influenza virus vacc ine, unspecified formulation Ivette Grimes MD Work Phone: [facility] 09-19-2023 influenza, injectabl e, quadrivalent, preservative free Self Referred [facility] 08-06-2022 influenza, injectabl e, quadrivalent, preservative free Dr. Ivette Grimes Work Phone: [facility] 08-06-2022 influenza, seasonal, injectable Ivette Grimes MD Work Phone: [facility] 08-06-2022 influenza virus vacc ine, unspecified formulation Ivette Grimes MD Work Phone: [facility] 10-18-2021 Covid (Moderna) Dr. Ivette Grimes Work Phone: [facility] 08-01-2021 influenza virus vacc ine, unspecified formulation Elle Rasheed MD Work Phone: [facility] 08-01-2021 influenza, injectabl e, quadrivalent, preservative free Dr. Ivette Grimes Work Phone: [facility] 08-01-2021 influenza, seasonal, injectable Dr. Ivette Grimes Work Phone: [facility] 08-01-2021 influenza, seasonal, injectable, preservative free Ivette Grimes MD Work Phone: [facility] 11-29-2020 COVID-19 vaccine, fu ll dose (MODERNA) Elle Rasheed MD Work Phone: [facility] 11-01-2020 Covid (Moderna) Dr. Ivette Grimes Work Phone: [facility] 10-31-2020 COVID-19 vaccine, fu ll dose (MODERNA) Elle Rasheed MD Work Phone: [facility] 08-02-2020 influenza, injectabl e, quadrivalent, preservative free Dr. Ivette Grimes Work Phone: [facility] 08-02-2020 influenza, seasonal, injectable Dr. Ivette Grimes Work Phone: [facility] 08-02-2020 influenza, seasonal, injectable, preservative free Ivette Grimes MD Work Phone: [facility] 08-01-2020 influenza virus vacc ine, unspecified formulation Elle Rasheed MD Work Phone: [facility] 07-30-2019 influenza, injectabl e, quadrivalent, contains preservative Ivette Grimes MD Work Phone: [facility] 07-30-2019 influenza, injectabl e, quadrivalent, preservative free Dr. Ivette Grimes Work Phone: [facility] 07-30-2019 influenza, seasonal, injectable Dr. Ivette Grimes Work Phone: [facility] 07-28-2019 pneumococcal polysaccharide vaccine, 23 valent Elle Rasheed MD Work Phone: [facility] 08-01-2018 influenza, injectabl e, quadrivalent, preservative free Dr. Ivette Grimes Work Phone: [facility] 08-01-2018 influenza, seasonal, injectable Dr. Ivette Grimes Work Phone: [facility] 08-07-2017 influenza, seasonal, injectable Elle Rasheed MD Work Phone: [facility] 07-31-2017 influenza, injectabl e, quadrivalent, preservative free Dr. Ivette Grimes Work Phone: [facility] 07-31-2017 influenza, seasonal, injectable Dr. Ivette Grimes Work Phone: [facility] 08-02-2016 influenza, injectabl e, quadrivalent, preservative free Dr. Ivette Grimes Work Phone: [facility] 08-02-2016 influenza, seasonal, injectable Dr. Ivette Grimes Work Phone: [facility] 07-09-2016 influenza, injectabl e, quadrivalent, contains preservative Elle Rasheed MD Work Phone: [facility] 03-05-2016 hepatitis B vaccine, pediatric or pediatric/adolescent dosage Elle Rasheed MD Work Phone: [facility] 03-05-2016 hepatitis B vaccine, unspecified formulation Elle Rasheed MD Work Phone: [facility] 07-25-2015 influenza, injectabl e, quadrivalent, contains preservative Ivette Grimes MD Work Phone: [facility] 07-25-2015 influenza, injectabl e, quadrivalent, preservative free Dr. Ivette Grimes Work Phone: [facility] 07-25-2015 influenza, seasonal, injectable Dr. Ivette Grimes Work Phone: [facility] 07-25-2015 varicella virus vaccine Cathy Rasheed MD Work Phone: [facility] 06-06-2015 hepatitis B vaccine, pediatric or pediatric/adolescent dosage Elle Rasheed MD Work Phone: [facility] 05-05-2015 hepatitis B vaccine, pediatric or pediatric/adolescent dosage Elle Rasheed MD Work Phone: [facility] 06-01-2013 tetanus toxoid, redu jamila diphtheria toxoid, and acellular pertussis vaccine, adsorbed Elle Rasheed MD Work Phone: [facility] 02-22-2009 human papilloma viru s vaccine, quadrivalent Elle Rasheed MD Work Phone: [facility] Work Phone: 09-27-2008 human papilloma viru s vaccine, quadrivalent Elle Rasheed MD Work Phone: [facility] Work Phone: 07-20-2008 human papilloma viru s vaccine, quadrivalent Elle Rasheed MD Work Phone: [facility] Work Phone: Payers Date Payer Category Payer Unknown [id number] 2024 Self-pay [id number] [phone] [id number] 2022 Government (not [facility] or Medicaid) [facility] [id number] 2022 Private Health Insurance [id number] 2022 Unknown [id number] 2020 Unknown [id number]. [id number] 2019 Unknown [id number]. [id number] 2015 Unknown [id number] Unknown [id number] Unknown [id number] 2.16.840.1.737266.3.579.2. 462 Unknown [id number] 2.16.840.1.149761.3.579.2. 462 Unknown [id number] 2.16.840.1.056421.3.579.2. 462 Unknown [id number] 2.16.840.1.865336.3.579.2. 462 Unknown [id number] 2.16840.1.694984.3.579.2. 462 Unknown [id number] 2.16840.1.314543.3.579.2. 462 Unknown [id number] 2.840.1.203250.3.579.2. 462 Unknown [id number] 2.840.1.691911.3.579.2. 462 Unknown [id number] 2.840.1.711191.3.579.2. 462 Unknown [id number] 2.840.1.056277.3.579.2. 462 Unknown [id number] 2.840.1.544499.3.579.2. 462 Unknown [id number] 2.840.1.383671.3.579.2. 462 Unknown [id number] 2.16840.1.174950.3.579.2. 462 Unknown [id number] 2.840.1.523571.3.579.2. 462 Unknown [id number] 2.16840.1.568164.3.579.2. 462 Unknown [id number] 2.16840.1.143139.3.579.2. 462 Unknown [id number] 2.16840.1.390940.3.579.2. 462 Unknown [id number] 2.16840.1.019821.3.579.2. 462 Unknown [id number] 2.16840.1.054138.3.579.2. 462 Unknown [id number] 2.16.840.1.290221.3.579.2. 462 Unknown [id number] 2.16840.1.932294.3.579.2. 462 Unknown [id number] 2.16.840.1.753398.3.579.2. 462 Unknown [id number] 2.16840.1.755193.3.579.2. 462 Unknown [id number] 2.840.1.746537.3.579.2. 462 Unknown [id number] 2.840.1.684058.3.579.2. 462 Unknown [id number] 2.840.1.194676.3.579.2. 462 Unknown [id number] 2.840.1.828806.3.579.2. 462 Unknown [id number] 2.840.1.537902.3.579.2. 462 Unknown [id number] 2.840.1.472598.3.579.2. 462 Unknown [id number] 2.840.1.021433.3.579.2. 462 Unknown [id number] 2.840.1.274171.3.579.2. 462 Unknown [id number] 2.840.1.874929.3.579.2. 462 Unknown [id number] 2.840.1.364840.3.579.2. 462 Unknown [id number] 2.840.1.689681.3.579.2. 462 Unknown [id number] 2.840.1.175983.3.579.2. 462 Unknown [id number] 2.840.1.126691.3.579.2. 462 Unknown [id number] 2.840.1.720403.3.579.2. 462 Unknown [id number] 2.840.1.726701.3.579.2. 462 Unknown [id number] 2.16.840.1.873201.3.579.2. 462 Social History Date Type Detail Facility Start: 03-14-2011 End: 07-05-2025 Tobacco smoking status NHIS Never smoked tobacco [facility] Start: 01-25-2022 End: 07-15-2025 Alcohol intake Current non-drinker of alcohol (finding) [facility] Start: 09-13-2020 End: 11-01-2022 History SDOH Alcohol Frequency 1 [facility] Start: 03-09-2020 History SDOH Social Connections Phone 5 [facility] Start: 03-09-2020 End: 11-01-2022 History SDOH Social Connections Get Together 2 [facility] Start: 03-09-2020 End: 11-01-2022 History SDOH Social Connections [facility] 3 [facility] Start: 03-09-2020 End: 11-01-2022 History SDOH Social Connections Living 7 [facility] Start: 09-13-2020 End: 11-01-2022 History SDOH Financial 4 [facility] Start: 08-15-2020 Education 16 [facility] Start: 1980 Sex Assigned At Female [facility] Start: 01-19-2022 End: 01-22-2023 Exposure to SARS-CoV-2 (event) Not sure [facility] Start: 02-06-2022 End: 02-04-2024 Tobacco smoking status NHIS Unknown if ever smoked [facility] Start: 05-15-2020 None [facility] Start: 05-15-2020 Alone [facility] Start: 05-05-2020 Non-smoker [facility] Start: 03-14-2011 End: 07-19-2022 Tobacco use and exposure Smokeless tobacco non-user [facility] Work Phone: Start: 11-01-2022 History SDOH Alcohol Std Drinks 0 [facility] Start: 11-01-2022 End: 05-17-2023 History of Social function [facility] Start: 11-01-2022 End: 05-17-2023 Social connection and isolation panel [facility] Do you belong to any clubs or organizations such as sabianist groups, unions, fraternal or athletic groups, or school groups? No [facility] Are you now , , , , never or living with a partner? Never [facility] How often to you hav e a drink containing alcohol? Never [facility] Start: 10-05-2012 How many standard drinks containing alcohol do you have on a typical day? Patient does not drink [facility] How hard is it for y ou to pay for the very basics like food, housing, medical care, and heating Not very hard [facility] Do you feel stress - tense, restless, nervous, or anxious, or unable to sleep at night because your mind is troubled all the time - these days [OSQ] Only a little [facility] (I/We) worried wheth er (my/our) food would run out before (I/we) got money to buy more. Never true [facility] Start: 05-27-2020 Gender identity Identifies as female gender (finding) [facility] Start: 05-27-2020 Sexual orientation Heterosexual (fin glory) [facility] Do you belong to any clubs or organizations such as sabianist groups, unions, [employer] or athletic groups, or school groups? Yes [facility] Start: 02-02-2025 Sex Female (finding) [facility] NEGATED: Highlighted row [facility] Medical Equipment Procedure Code Equipment Code Equipment Origin al Text Equipment Identifier Dates [id number], [id number] Start: 07-22-2018 Comment on above: Test blood [...] Assessment Result Facility 07-07-2025 Functional status Ambulates [facility] Work Phone: 12-11-2024 Total score [AUDIT-C] 0 12/11/19 25 10:02 AM EST User, Katehellen [facility] 12-11-2024 Within the last year , have you been humiliated or emotionally abused in other ways by your partner or ex-partner? No 12/11/2024 10:02 AM EST User, [facility] 12-11-2024 Within the last year , have you been afraid of your partner or ex-partner? No 12/11/2024 10:02 AM EST User, [facility] 12-11-2024 Within the last year , have you been raped or forced to have any kind of sexual activity by your partner or ex-partner? No 12/11/2024 10:02 AM EST User, [facility] 12-11-2024 Within the last year , have you been kicked, hit, slapped, or otherwise physically hurt by your partner or ex-partner? No 12/11/2024 10:02 AM EST User, Mychart No [facility] 12-11-2024 How often to you hav e a drink containing alcohol? Never 12/11/2024 10:02 AM EST User, Mychart Never [facility] 12-11-2024 Functional status Patient does n ot drink 12/11/2024 10:02 AM EST User, [email or web address] Patient does not drink [facility] 12-11-2024 How often do you hav e 6 or more drinks on 1 occasion? Never 12/11/2024 10:02 AM Shankar Melchor Never [facility] 08-07-2023 Functional status Chair [facility] Work Phone: 10-22-2014 Are you deaf, or do you have serious difficulty hearing No 10/22/2014 10:49 AM Ashanti Mejia Ma [facility] 10-22-2014 Are you blind, or do you have serious difficulty seeing, even when wearing glasses No 10/22/2014 10:49 AM Ashanti Mejia Ma No [facility] 10-22-2014 Do you have serious difficulty walking or climbing stairs No 10/22/2014 10:49 AM Ashanti Mejia Ma No [facility] 10-22-2014 Do you have difficul ty dressing or bathing No 10/22/2014 10:49 AM Ashanti Mejia Ma No [facility] 10-22-2014 Because of a physica l, mental, or emotional condition, do you have difficulty doing errands alone such as visiting a physician's office or shopping No 10/22/2014 10:49 AM Ashanti Mejia Ma [facility] Mental Status Date Assessment Result Facility 07-07-2025 Cognitive function Voice/Name [facility] Work Phone: 06-23-2025 Cognitive function Voice/Name [facility] Work Phone: 11-11-2024 Cognitive function Voice/Name [facility] Work Phone: 02-04-2024 Cognitive function Level Of Cons ciousness Awake;Alert;Appropriate [facility] Work Phone: 08-07-2023 Cognitive function Voice/Name [facility] Work Phone: 08-05-2023 Cognitive function Level Of Cons ciousness Awake;Alert;Appropriate;Fol lows Commands [facility] Work Phone: 05-20-2023 Cognitive function Level Of Cons ciousness Awake;Alert;Appropriate [facility] Work Phone: 12-03-2022 Cognitive function Level Of Cons ciousness Awake;Alert;Appropriate;Fol lows Commands [facility] Work Phone: 11-27-2022 Cognitive function Level Of Cons ciousness Awake;Alert;Appropriate [facility] Work Phone: 10-22-2014 Because of a physica l, mental, or emotional condition, do you have serious difficulty concentrating, remembering, or making decisions No 10/22/2014 10:49 AM EST Masters Ashanti Ramirez [facility] Clinical Notes 12-06-2012 to 09-16-2025 Patient InstructionsSuLubna hernandez APRN.[facility] - 07/15/2025 9:33 AM EDTTelephone Encounter - Lubna De La Garza APRN.[facility] - 07/15/2025 9:24 AM EDLittle Saleh MA - 07/09/2025 8:01 AM EDT Note Date & Type Note Facility 09-16-2025 Note [facility] 08-04-2025 Note HNO ID: [id number] Author: FATUMA BECKFORD PA-C Service: ? Author Type: Physician Gravure Press Operator Type: Progress Notes Filed: 08/04/2025 17:00 Note [...] for migraine Informed Consent Consent Obtained: Written [place] Protocol A moment to CARE was completed [...] collected. Written Consent Obtained: Written LOT #: [id number] Expiration Date: Month: Year: 2026 Second vial: LOT #: [id number] Expiration Date: Month: Year: 2026 Injection Sites Left (Units) Left (Sites) Right (Units) Right (Sites) TOTAL (Units) Fruit Worker 5 1 5 1 10 Procerus [...] 2-3 weeks until stop. Fatuma Beckford PA-C [facility] 07-29-2025 Note HNO ID: [id number] Author: IVETTE GRIMES MD Service: ? Author [...] 1 tablet by mouth once daily. Ipratropium Wynne (ATROVENT) 21 mcg (0.03 %) nasal spray [...] 2 DM - Controlled E11.9 Insulin: No Gmoudacc-Wy-Hkz-Fe-FA tab Take 1 tablet by mouth once [...] Age of Onset Alcohol/Drug Mother Heart Father [place] Cancer Father PANCREATIC CANCER Diabetes Father Coronary [...] maintenance issues tod (more content not included)... [facility] 07-15-2025 Instructions Lubna De La Garza APRN.CNP [...] ordered last month documented in this encounter [facility] 07-15-2025 Note HNO ID: [id number] Author: LUBNA DE LA GARZA APRN.CNP Service: ? Author Type: Nurse Practitioner Type: Progress Notes Filed: 07/15/2025 09:54 Note Text: This is a 45 year old female who presents today with: Patient presents with: Hospital F/U: [facility] DX Sepsis, UTI D/C 07/07 HISTORY OF PRESENT ILLNESS: Tori Gray is a 45 year old female. Patient presents with: Hospital F/U: [facility] DX Sepsis, UTI D/C 07/07 The [...] 1 tablet by mouth once daily. Ipratropium Wynne (ATROVENT) 21 mcg (0.03 %) nasal spray [...] 2 DM - Controlled E11.9 Insulin: No Byfnerun-Dy-Ros-Fe-FA tab Take 1 tablet by mouth once daily. No current facility-administered medications for this visit. FAMILY HISTORY Problem Relation Age of Onset Alcohol/Drug Mot (more content not included)... [facility] 07-15-2025 History of Presen t illness Narrative This is a 45 year old female who presents today with: Patient presents with: Hospital F/U: [facility] DX Sepsis, UTI D/C 07/07 HISTORY OF PRESENT ILLNESS: Tori Gray is a 45 year old female. Patient presents with: Hospital F/U: [facility] DX Sepsis, UTI D/C 07/07 The [...] 1 tablet by mouth once daily. Ipratropium Wynne (ATROVENT) 21 mcg (0.03 %) nasal spray [...] 2 DM - Controlled E11.9 Insulin: No Tsiophky-Jw-Fft-Fe-FA tab Take 1 tablet by mouth once daily. No current facility-administered medications for this visit. FAMILY HISTORY Problem Relation Age of Onset Alcohol/Drug Mother Heart Father [place] Cancer Father PANCREATIC CANCER Diabetes Father Coronary [...] septic shock, unspecified acute renal failure type ([facility]) (A41.51) - Recent hospitalization for E. coli sepsis with acute renal failure; completed course of cefdinir. - No current urinary symptoms; infection likely related to recent shoulder surgery and catheterization. - finished antibiotic yesterday 2. Type 2 diabetes mellitus with microalbuminuria, with long-term current use of insulin ([facility]) (E11.29) 3. Microalbuminuria (R80.9) 4. Type 2 diabetes mellitus without complication, with long-term current use of insulin ([facility]) (E11.9) - Hyperglycemia during hospitalization [...] Drug use: No documented in this encounter [facility] 07-15-2025 Telephone encounter Note Patient was seen at [facility] on August 03, 2025 for sepsis, complicated urinary tract infection. Patient presented to the emergency room with some confusion and found to have hyperosmolar nonketotic state as well as sepsis secondary to urinary tract infection in addition to acute kidney injury. 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 Acute metabolic encephalopathy secondary to sepsis and [...] at bedtime Ozempic 2 mg weekly continued [facility] 07-15-2025 Miscellaneous Notes Patient was seen at [facility] on August 03, 2025 for sepsis, complicated urinary tract infection. Patient presented to the emergency room with some confusion and found to have hyperosmolar nonketotic state as well as sepsis secondary to urinary tract infection in addition to acute kidney injury. 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 Acute metabolic encephalopathy secondary to sepsis and [...] mg weekly continued documented in this encounter [facility] 07-09-2025 Note HNO ID: [id number] Author: LUBNA DE LA GARZA APRN.CNP Service: ? Author Type: Nurse Practitioner Type: Progress Notes Filed: 07/09/2025 13:27 Note Text: Lisinopril renewed. [facility] 07-09-2025 History of Presen t illness Narrative Lisinopril renewed. TRANSITION CARE MANAGEMENT (TCM) INITIAL CONTACT Floor Molder Outreach Provider Action/FYI: Patient needs a refill of her lisinopril Initial contact with patient post discharge, spoke to patient. Patient identified by name and . TRANSITION CARE MANAGEMENT INITIAL OUTREACH DOCUMENTATION: 07/09/2025 07/09/2025 Date of Outreach: Outreach Attempt 1: Contact Made Date of Discharge 07/07/2025 SUMMARY: -Pt discharged from [facility] on 07/07/25. -Admitted for: Acute Sepsis, [...] recent hospitalization: Epic documented in this encounter [facility] 07-09-2025 Note HNO ID: [id number] Author: LITTLE MURPHY MA Service: ? Author Type: Floor Molder Type: Progress Notes Filed: 07/09/2025 13:27 Note Text: TRANSITION CARE MANAGEMENT (TCM) INITIAL CONTACT Floor Molder Outreach Provider Action/FYI: Patient needs a refill of her lisinopril Initial contact with patient post discharge, spoke to patient. Patient identified by name and . TRANSITION CARE MANAGEMENT INITIAL OUTREACH DOCUMENTATION: 07/09/2025 07/09/2025 Date of Outreach: Outreach Attempt 1: Contact Made Date of Discharge 07/07/2025 SUMMARY: -Pt discharged from [facility] on 07/07/25. -Admitted for: Acute Sepsis, [...] Note Patient Outreach (FA MPWS) TORI GRAY ([id number]) 1980 F Date Time Provider Department 07/09/25 LITTLE MURPHY During your visit today, we recorded the following information about you: Little Murphy MA 07/09/2025 1:27 PM Signed TRANSITION CARE MANAGEMENT (TCM) INITIAL CONTACT Floor Molder Outreach Provider Action/FYI: Patient needs a refill of her lisinopril Initial contact with patient post discharge, spoke to patient. Patient identified by name and . TRANSITION CARE MANAGEMENT INITIAL OUTREACH DOCUMENTATION: 07/09/2025 07/09/2025 Date of Outreach: Outreach Attempt 1: Contact Made Date of Discharge 07/07/2025 SUMMARY: -Pt discharged from [facility] on 07/07/25. -Admitted for: Acute Sepsis, [...] Yes Medical records from recent hospitalization: Lubna iL APRN.CNP 07/09/2025 1:27 PM Signed Lisinopril renewed. Allergies As of Date: 07/09/2025 Noted Allergy Reaction FARXIGA (DAPAGLIFLOZIN) 08/05/2024 8 - GI Upset LIDOCAINE 12/24/2019 4 - Hives METFORMIN 08/05/2024 8 - GI Upset STEROIDS (BETAMETHASONE DIPROPION*12/21/2021 4 - Hives Date Reviewed: 06/07/2025 Reviewed by: Casi Encinas - Fully Assessed Reason for Visit: Transition Of Care [4074] Cmt: [facility] Discharge 07/07/25 Visit Diagnoses:Microalbuminuria [R80.9] Type [...] tablet by mouth once daily. - Ipratropium Wynne (ATROVENT) 21 mcg (0.03 %) nasal spray [...] DM - Controlled E11.9 Insulin: No - Bbqkzatx-Wp-Zvp-Fe-FA tab Take 1 tablet by mouth once daily. Meds Comments as of 03/01/2019: Percocet March 01, 2019 Stephanie Suresh RN Problem List As Of Date 07/09/2025 Noted Resolved SUPERVIS NORMAL 1ST PREG [Z34.00] 11/09/2005 07/02/2006 TRANS HYPERTEN-ANTEPART [O13.9] 06/19/2006 07/02/2006 KERATOSIS PILARIS////SKIN ANOMALY NEC [Q82.8] 03/26/2007 01/23/2010 Other Acne [L70.8] 03/26/2007 FOLLICULITIS///HAIR DISEASES NEC [L67.8, L73.8] 03/26/2007 0 (more content not included)... [facility] 07-07-2025 Discharge summary Note Date/Time July 07, 2025 8:29am [facility] Medical Records Department [address] [place] [address] Discharge Summary 07/07/25 0816 MR#: [id number] Acct: [id number] Name: TORI GRAY Rep #:[id number] : 1980 45 From: Brittany Harrison MD PCP: Dr. Ivette Grimes MD Status:ADM I N Location: ICU CVICU 2-1 Providers Date of Admission: 07/05/25 Date of Discharge: 07/07/25 Primary Care Physician: Dr. Ivette Grimes MD Consultations 07/05/25 23:32 Consult: Dairy Powder Mixer Operator / Pulmonary Medicine Routine Consulting Provider: Intensivists/Pulmonary [...] QWEEK 07/05/25 BIPAP -Bilevel Positive Airway Pressure ([facility] INFORMATIONAL USE ONLY) 07/06/25 CPAP - Continuous Positive Airway Pressure([facility] INFORMATIONAL USE ONLY) 07/06/25 cefdinir 300 [...] QWEEK (DME) BIPAP -Bilevel Positive Airway Pressure ([facility] INFORMATIONAL USE ONLY) Device See Rx Instructions .ROUTE Patient Comments: VAuto: IPAP=19.2 EPAP=12.4 PS=6.8 Rx Instructions: As directed (DME) CPAP - Continuous Positive Airway Pressure([facility] INFORMATIONAL USE ONLY) Device See Rx [...] Self Care Charges/Coding Visit Charges Inpatient E&M: 58979 Disch Hosp >30min 07/07/25 0829 <Electronically signed by Brittany Harrison MD> Cosigner Signature (if applicable): CC: Dr. Brittany Harrison MD; Dr. Ivette Grimes MD~ Signed [facility] Work Phone: 1(751) 147-934009-03-2025 Progress note Author Brittany Harrison [facility] Note Date/Time July 07, 2025 8:16am [facility] Medical Records Department [address] [place] [address] Progress Note - Hospitalist 07/07/25 0719 MR#: [id number] Acct: [id number] Name: ISAACTORI KELLY Rep #:[id number] : 1980 45 From: Brittany Harrison MD PCP: Dr. Ivette Grimes MD Status:ADM I N Location: ICU [place] [address] 2-1 Reason for Visit Chief Complaint: Altered [...] bilateral SCDs Charges/Coding Visit Charges Inpatient E&M: 27311 Subs Hosp L2 07/07/25 0816 <Electronically signed by Brittany Harrison MD> Cosigner Signature (if applicable): CC: ~ Signed [facility] Work Phone: 1(355) 673-783309-03-2025 Discharge summary [facility] Medical Records Department [address] [place] [address] Discharge Summary 07/07/25 0816 MR#: [id number] Acct: [id number] Name: TORI GRAY Rep #:[id number] : 1980 45 From: Brittany Harrison MD PCP: Dr. Ivette Grimes MD Status:ADM I N [facility] Prov[facility] Date of Admission: 07/05/25 Date of Discharge: 07/07/25 Primary Care Physician: Dr. Ivette Grimes MD Consultations 07/05/25 23:32 Consult: Dairy Powder Mixer Operator / Pulmonary Medicine Routine Consulting Provider: Intensivists/Pulmonary [...] QWEEK 07/05/25 BIPAP -Bilevel Positive Airway Pressure ([facility] INFORMATIONAL USE ONLY) 07/06/25 CPAP - Continuous Positive Airway Pressure([facility] INFORMATIONAL USE ONLY) 07/06/25 cefdinir 300 [...] QWEEK (DME) BIPAP -Bilevel Positive Airway Pressure ([facility] INFORMATIONAL USE ONLY) Device See Rx Instructions .ROUTE Patient Comments: VAuto: IPAP=19.2 EPAP=12.4 PS=6.8 Rx Instructions: As directed (DME) CPAP - Continuous Positive Airway Pressure([facility] INFORMATIONAL USE ONLY) Device See Rx [...] Self Care Charges/Coding Visit Charges Inpatient E&M: 89962 Disch Hosp >30min 07/07/25 0829 Cosigner Signature (if applicable): CC: Dr. Brittany Harrison MD; Dr. Ivette Grimes MD~ Signed [facility]09-03-2025 [facility] Progress note [facility] Medical Records Department [address] [place] [address] Progress Note - Hospitalist 07/07/25718 MR#: [id number] Acct: [id number] Name: TORI GRAY Rep #:[id number] : 1980 45 From: Brittany Harrison MD PCP: Dr. Ivette Grimes MD Status:ADM I N Location: ICU [place] [address] 2-1 Reason for Visit Chief Complaint: Altered [...] bilateral SCDs Charges/Coding Visit Charges Inpatient E&M: 53317 Subs Hosp L2 07/07/25 0816 Cosigner Signature (if applicable): CC: ~ Signed [facility]09-02-2025 Progress note Author Jose Juan Reinoso [facility] Note Date/Time July 06, 2025 11:32am [facility] Medical Records Department [address] [place] [address] Progress Note - Hospitalist 07/06/2551 MR#: [id number] Acct: [id number] Name: TORI GRAY Rep #:[id number] : 1980 45 From: Jose Juan petersen [...] 77.6 H, Lymph % (Auto) 14.4 L, [place] % (Auto) 5.8, Eos % (Auto) 0.9, [...] Sl. Cloudy, Urine pH 6.0, Ur Specific [place] 1.010, Urine Protein 30 H, Urine Glucose [...] 73.6 H, Lymph % (Auto) 16.7 L, [place] % (Auto) 6.6, Eos % (Auto) 1.4, [...] (MDRD) Non-Af 45 L, BUN/Creatinine Ratio 19.4, [id number] H, Hemoglobin A1c 7.6 H, Calcium 8.1, [...] consolidation or sizable pleural effusion. Reading Location: [id number] Abdomen/Pelvis CT 07/05/25 22:18 IMPRESSION: 1. A 10 mm stone at the left UPJ resulting in mild left hydronephrosis. 2. Mildly prominent reactive left para-aortic lymph nodes. Reading [id number] Physical Exam Narrative General: Alert, Oriented x3, [...] DVT: SCDs Charges/Coding Visit Charges Inpatient E&M: 45131 Subs Hosp L2 07/06/25 1132 <Electronically signed by Jose Juan Reinoso MD> Cosigner Signature (if applicable): CC: ~ Signed [facility] Work Phone: 1(719) 260-104609-02-2025 Progress note [facility] Medical Records Department [address] [place] [address] Progress Note - Hospitalist 07/06/25950 MR#: [id number] Acct: [id number] Name: TORI GRAY Rep #:[id number] : 1980 45 From: Jose Juan petersen [...] 77.6 H, Lymph % (Auto) 14.4 L, [place] % (Auto) 5.8, Eos % (Auto) 0.9, [...] Sl. Cloudy, Urine pH 6.0, Ur Specific [place] 1.010, Urine Protein 30 H, Urine Glucose [...] 73.6 H, Lymph % (Auto) 16.7 L, [place] % (Auto) 6.6, Eos % (Auto) 1.4, [...] (MDRD) Non-Af 45 L, BUN/Creatinine Ratio 19.4, [id number] H, Hemoglobin A1c 7.6 H, Calcium 8.1,Phosphorus [...] consolidation or sizable pleural effusion. Reading Location: [id number]-YQ Abdomen/Pelvis CT 07/05/25 22:18 IMPRESSION: 1. A 10 mm stone at the left UPJ resulting in mild left hydronephrosis. 2. Mildly prominent reactive left para-aortic lymph nodes. Reading [id number] Physical Exam Narrative General: Alert, Oriented x3, [...] DVT: SCDs Charges/Coding Visit Charges Inpatient E&M: 54029 Subs Hosp L2 07/06/25 1132 Cosigner Signature (if applicable): CC: ~ Signed [facility]09-02-2025 Telephone encounter Note* Telephone Encounter - Little Murphy MA - 07/06/2025 10:17 AM EDT [facility]09-02-2025 Miscellaneous Notes* Telephone Encounter - Little Murphy MA - 07/06/2025 10:17 AM EDT [facility] History and physical note Author Shana Mendoza [facility] Note Date/Time July 06, 2025 1:39am [facility] Medical Records Department [address] [place] [address] H&P Exam - Hospitalist 07/05/252134 MR#: [id number] Acct: [id number] Name: TORI GRAY Rep #:[id number] : 1980 45 From: Shana Mendoza MD [...] debridement with arthroscopy who presents to the [facility] ED on 07/05/2025 with history of [...] at 150 mL/h, initiated on insulin drip. [facility] Medical History Impingement of left shoulder Diabetes [...] 77.6 H, Lymph % (Auto) 14.4 L, [place] % (Auto) 5.8, Eos % (Auto) 0.9, [...] Sl. Cloudy, Urine pH 6.0, Ur Specific [place] 1.010, Urine Protein 30 H, Urine Glucose [...] consolidation or sizable pleural effusion. Reading Location: XPT-CSLOOTR-GC Assessment & Plan Assessment/Plan (1) Sepsis: (2) Complicated urinary tract infection: PLAN: Plan The patient is a 45 y/o F w/ PMHx: Morbid obesity, Diabetes mellitus type II with chronic neuropathy, LETITIA on BIPAP q HS, HTN, Anxiety and Depression, GERD, Chronic migraines who presents to the [facility] ED on 07/05/2025 with history of [...] as noted. Charges/Coding Visit Charges Inpatient E&M: 57065 Init Hosp L3 07/05/255 <Electronically signed by [...] MD; Dr. Ivette Grimes MD ~* Signed [facility] Work Phone: 1(811) 518-622309-02-2025 Consult note Author Sabrina Kohler l [facility] Note Date/Time July 06, 2025 1:10am [facility] Medical Records Department [address] [place] [address] Consultation - Dairy Powder Mixer Operator 07/06/25 0055 MR#: [id number] Acct: [id number] Name: TORI GRAY Rep #:[id number] : 1980 45 From: Sabrina arthur MD [...] are well heard Abd: Soft Extre:Trace edema DEGREASING WHEEL OPERATOR: Awake, alert . oriented Assessment/Plan # Hyperglycemia [...] 60 minutes Entire encounter done via Telemedicine [facility] Medical History Impingement of left shoulder Diabetes [...] mls @ 15 mls/hr 07/05/25 23:36 IV .[id number] PRN Saline Flush Sodium Chloride 250 mls @ 15 mls/hr 07/05/25 23:36 IV .[id number] PRN Additional IVPB Infusion Dextrose/Sodium Chloride 1,000 [...] 77.6 H, Lymph % (Auto) 14.4 L, [place] % (Auto) 5.8, Eos % (Auto) 0.9, [...] Sl. Cloudy, Urine pH 6.0, Ur Specific [place] 1.010, Urine Protein 30 H, Urine Glucose [...] consolidation or sizable pleural effusion. Reading Location: [id number] Abdomen/Pelvis CT 07/05/25 22:18 IMPRESSION: 1. A 10 mm stone at the left UPJ resulting in mild left hydronephrosis. 2. Mildly prominent reactive left para-aortic lymph nodes. Reading Location[id number] Assessment and Plan . Assessment and plan: Critical Care Time: The entirety of this encounter was done via Telemedicine 07/06/25 0110 <Electronically signed by Sabrina Abdul MD> Cosigner Signature (if applicable): CC: Dr. Ivette Grimes MD~ Signed [facility] Work Phone: 1(506) 914-158109-02-2025 History and physical note [facility] Medical Records Department [address] [place] [address] H&P Exam - Hospitalist 07/05/252134 MR#: [id number] Acct: [id number] Name: TORI GRAY Rep #:[id number] : 1980 45 From: Shana Mendoza MD [...] debridement with arthroscopy who presents to the [facility] ED on 07/05/2025 with history of [...] at 150 mL/h, initiated on insulin drip. [facility] Medical History Impingement of left shoulder Diabetes [...] 77.6 H, Lymph % (Auto) 14.4 L, [place] % (Auto) 5.8, Eos % (Auto) 0.9, [...] Sl. Cloudy, Urine pH 6.0, Ur Specific [place] 1.010, Urine Protein 30 H, Urine Glucose [...] consolidation or sizable pleural effusion. Reading Location: [id number]-YX Assessment & Plan Assessment/Plan (1) Sepsis: (2) Complicated urinary tract infection: PLAN: Plan The patient is a 45 y/o F w/ PMHx: Morbid obesity, Diabetes mellitus type II with chronic neuropathy, LETITIA on BIPAP q HS, HTN, Anxiety and Depression, GERD, Chronic migraines who presents to the [facility] ED on 07/05/2025 with history of [...] as noted. Charges/Coding Visit Charges Inpatient E&M: 24779 Init Hosp L3 07/05/255 Cosigner Signature (if [...] MD; Dr. Ivette Grimes MD ~* Signed [facility]09-02-2025 Consult note [facility] Medical Records Department [address] [place] [address] Consultation - Dairy Powder Mixer Operator 07/06/2554 MR#: [id number] Acct: [id number] Name: TORI GRAY Rep #:[id number] : 1980 45 From: Sabrina arthur MD [...] are well heard Abd: Soft Extre:Trace edema DEGREASING WHEEL OPERATOR: Awake, alert . oriented Assessment/Plan # Hyperglycemia [...] 60 minutes Entire encounter done via Telemedicine [facility] Medical History Impingement of left shoulder Diabetes [...] mls @ 15 mls/hr 07/05/25 23:36 IV .[id number] PRN Saline Flush Sodium Chloride 250 mls @ 15 mls/hr 07/05/25 23:36 IV .[id number] PRN Additional IVPB Infusion Dextrose/Sodium Chloride 1,000 [...] 77.6 H, Lymph % (Auto) 14.4 L, [place] % (Auto) 5.8, Eos % (Auto) 0.9, [...] Sl. Cloudy, Urine pH 6.0, Ur Specific [place] 1.010, Urine Protein 30 H, Urine Glucose [...] consolidation or sizable pleural effusion. Reading Location: [id number] Abdomen/Pelvis CT 07/05/25 22:18 IMPRESSION: 1. A 10 mm stone at the left UPJ resulting in mild left hydronephrosis. 2. Mildly prominent reactive left para-aortic lymph nodes. Reading Location: [id number] Assessment and Plan . Assessment and plan: Critical Care Time: The entirety of this encounter was done via Telemedicine 07/06/25 0110 Cosigner Signature (if applicable): CC: Dr. Ivette Grimes MD~ Signed [facility]09-02-2025 Discharge summary Author Abhi [facility] Note Date/Time July 05, 2025 10:24pm [facility] Medical Records Department [address] [place] [address] Emergency Department Summary 07/05/25 MR#: [id number] Acct: [id number] Name: TORI GRAY Rep #:[id number] : 1980 45 From: Abhi Pina MD [...] 77.6 H Lymph % (Auto) 14.4 L [place] % (Auto) 5.8 Eos % (Auto) 0.9 [...] Sl. Cloudy Urine pH 6.0 Ur Specific [place] 1.010 Urine Protein 30 H Urine Glucose [...] (Auto) Neut % (Auto) Lymph % (Auto) [place] % (Auto) Eos % (Auto) Baso % [...] Color Urine Clarity Urine pH Ur Specific [place] Urine Protein Urine Glucose (UA) Urine Ketones [...] consolidation or sizable pleural effusion. Reading Location: [facility] EKG Initial EKG: Attestation: I personally reviewed and interpreted this EKG as follows: Interpretation: Sinus Rhythm (Rate is 75. Voltage is low. NH interval is138 ms. QS duration 94 ms per QT duration 384 ms. [place] is normal. There is nonseptic changes which [...] for DKA and sepsis.), Discussing w/Patient &/or Family/Cook Larder, Discussing w/Consultants and Arranging Admission or Transfer Discharge Plan Dx/Rx/DC Orders Clinical Impression: Sepsis, LETITIA (obstructive sleep apnea), Complicated urinary tract infection, Acidosis, lactic, Acute kidney injury, Acute anemia, Acute hypotension, Adult BMI 45.0- 49.9 kg/sq m Disposition Disposition: Acute Care [facility] What to do if you have Problems For any increased pain, shortness of breath, bleeding, nausea or vomiting, chestpain, or any unexpected problems, contact your Primary Care Provider. Call [facility] ([phone]) or report to the closest Emergency Room. Call 911 if necessary. 07/05/252223 <Electronically signed by Abhi Pina MD> Cosigner Signature (if applicable): CC: Dr. Ivette Grimes MD ~ Signed [facility] Work Phone: 1(441) 523-775209-01-2025 Radiology Diagnostic study note [facility] Imaging Services [address] [place] [address] Abdomen/Pelvis without Cont MR#: [id number] Acct: [id number] Name: TORI GRAY Rep #: [id number] : 1980 F 45 From: Clark Morin MD PCP: Dr. Ivette Grimes MD Status: ADM I N Study:Abdomen/Pelvis without Cont Date of Exa m: 07/05/25 Exam# [id number] Ordering Dr: Savi Mendoza MD PROCEDURE: ABDOMEN/PELVIS [...] reactive left para-aortic lymph nodes. [id number] CC: Dr. Shana Mendoza MD; Dr. Ivette Grimes MD ~ Anaesthesiologist: Signed [facility]09-01-2025 History and physical note Author Shana Reji [facility] Note Date/Time July 05, 2025 10:25pm [facility] Medical Records Department [address] [place] [address] H&P Exam - Hospitalist 07/05/252134 MR#: [id number] Acct: [id number] Name: TORI GRAY Rep #:[id number] : 1980 45 From: Shana Mendoza MD [...] debridement with arthroscopy who presents to the [facility] ED on 07/05/2025 with history of [...] at 150 mL/h, initiated on insulin drip. [facility] Medical History Impingement of left shoulder Diabetes [...] 77.6 H, Lymph % (Auto) 14.4 L, [place] % (Auto) 5.8, Eos % (Auto) 0.9, [...] Sl. Cloudy, Urine pH 6.0, Ur Specific [place] 1.010, Urine Protein 30 H, Urine Glucose [...] consolidation or sizable pleural effusion. Reading Location: [facility] Assessment & Plan Assessment/Plan (1) Sepsis: (2) Complicated urinary tract infection: PLAN: Plan The patient is a 45 y/o F w/ PMHx: Morbid obesity, Diabetes mellitus type II with chronic neuropathy, LETITIA on BIPAP q HS, HTN, Anxiety and Depression, GERD, Chronic migraines who presents to the [facility] ED on 07/05/2025 with history of [...] as noted. Charges/Coding Visit Charges Inpatient E&M: 39027 Init Hosp L3 07/05/252224 <Electronically signed by Shana Mendoza MD> Cosigner Signature (if applicable): CC: Dr. Shana Mendoza MD; Dr. Ivette Grimes MD~ Signed [facility] Work Phone: 1(601) 127-231209-01-2025 History and physical note [facility] Medical Records Department [address] [place] [address] H&P Exam - Hospitalist 07/05/252134 MR#: [id number] Acct: [id number] Name: TORI GRAY Rep #:[id number] : 1980 45 From: Shana Mendoza MD [...] debridement with arthroscopy who presents to the [facility] ED on 07/05/2025 with history of [...] at 150 mL/h, initiated on insulin drip. [facility] Medical History Impingement of left shoulder Diabetes [...] 77.6 H, Lymph % (Auto) 14.4 L, [place] % (Auto) 5.8, Eos % (Auto) 0.9, [...] Sl. Cloudy, Urine pH 6.0, Ur Specific [place] 1.010, Urine Protein 30 H, Urine Glucose [...] consolidation or sizable pleural effusion. Reading Location: [id number] Assessment & Plan Assessment/Plan (1) Sepsis: (2) Complicated urinary tract infection: PLAN: Plan The patient is a 45 y/o F w/ PMHx: Morbid obesity, Diabetes mellitus type II with chronic neuropathy, LETITIA on BIPAP q HS, HTN, Anxiety and Depression, GERD, Chronic migraines who presents to the [facility] ED on 07/05/2025 with history of [...] as noted. Charges/Coding Visit Charges Inpatient E&M: 85203 Init Hosp L3 07/05/25 0185 Cosigner Signature (if applicable): CC: Dr. Shana Mendoza MD; Dr. Ivette Grimes MD~ Signed [facility]09-01-2025 Discharge summary [facility] Medical Records Department [address] [place] [address] Emergency Department Summary 07/05/25 MR#: [id number] Acct: [id number] Name: TORI GRAY Rep #:[id number] : 1980 45 From: Abhi Pina MD [...] Prior similar symptoms: No Recent [facility] Medical History Impingement of left shoulder Diabetes [...] 77.6 H Lymph % (Auto) 14.4 L [place] % (Auto) 5.8 Eos % (Auto) 0.9 [...] Sl. Cloudy Urine pH 6.0 Ur Specific [place] 1.010 Urine Protein 30 H Urine Glucose [...] (Auto) Neut % (Auto) Lymph % (Auto) [place] % (Auto) Eos % (Auto) Baso % [...] Color Urine Clarity Urine pH Ur Specific [place] Urine Protein Urine Glucose (UA) Urine Ketones [...] consolidation or sizable pleural effusion. Reading Location: [facility] EK Initial EKG: Attestation: I personally reviewed and interpreted this EKG as follows: Interpretation: Sinus Rhythm (Rate is 75. Voltage is low. NH interval is138 ms. QS duration 94 ms per QT duration 384 ms. [place] is normal. There is nonseptic changes which [...] for DKA and sepsis.), Discussing w/Patient &/or Family/Cook Larder, Discussing w /Consultants and Arranging Admission or Transfer Discharge Plan Dx/Rx/DC Orders Clinical Impression: Sepsis, LETITIA (obstructive sleep apnea), Complicated urinary tract infection, Acidosis, lactic, Acutekidney injury, Acute anemia, Acute hypotension, Adult BMI 45.0-49.9 kg/sq m Disposition Disposition: Acute Care Hospital [facility] What to do if you have Problems For any increased pain, shortness of breath, bleeding, nausea or vomiting, chestpain, or any unexpected problems, contact your Primary Care Provider. Call [facility] ([phone]) or report tothe closest Emergency Room. Call 911 if necessary. 07/05/25 4825 Cosigner Signature (if applicable): CC: Dr. Ivette Grimes MD ~ Signed [facility]09-01-2025 Radiology Diagnostic study note [facility] Imaging Services [address] [place] [address] Chest PA and Lateral MR#: [id number] Acct: [id number] Name: TORI GRAY Rep #: [id number] : 1980 F 45 From: Sheng Hankins MD PCP: Dr. Ivette Grimes MD Status: REG E R Study:Chest PA and Lateral Date of Exam: 07/05/25 Exam# [id number] Ordering Dr: Min Pina MD PROCEDURE: CHEST [...] consolidation or sizable pleural effusion. Reading Location: [facility] CC: Dr. Abhi Pina MD; Dr. Ivette Grimes MD ~ Anaesthesiologist: Signed [facility]09-01-2025 Discharge summary Author Abhi Pina [facility] Note Date/Time July 05, 2025 10:24pm [facility] Medical Records Department [address] [place] [address] Emergency Department Summary 07/05/25 MR#: [id number] Acct: [id number] Name: TORI GRAY Rep #:[id number] : 1980 45 From: Abhi Pina MD [...] Prior similar symptoms: No Recent Illness/Hospitalization: No [facility] Medical History Impingement of left shoulder [...] 77.6 H Lymph % (Auto) 14.4 L [place] % (Auto) 5.8 Eos % (Auto) 0.9 [...] Sl. Cloudy Urine pH 6.0 Ur Specific [place] 1.010 Urine Protein 30 H Urine Glucose [...] (Auto) Neut % (Auto) Lymph % (Auto) [place] % (Auto) Eos % (Auto) Baso % [...] Color Urine Clarity Urine pH Ur Specific [place] Urine Protein Urine Glucose (UA) Urine Ketones [...] consolidation or sizable pleural effusion. Reading Location: [facility] EKG Initial EKG: Attestation: I personally reviewed and interpreted this EKG as follows: Interpretation: Sinus Rhythm (Rate is 75. Voltage is low. NH interval is138 ms. QS duration 94 ms per QT duration 384 ms. [place] is normal. There is nonseptic changes which [...] for DKA and sepsis.), Discussing w/Patient &/or Family/Cook Larder, Discussing w/Consultants and Arranging Admission or Transfer Discharge Plan Dx/Rx/DC Orders Clinical Impression: Sepsis, LETITIA (obstructive sleep apnea), Complicated urinary tract infection, Acidosis, lactic, Acute kidney injury, Acute anemia, Acute hypotension, Adult BMI 45.0- 49.9 kg/sq m Disposition Disposition: Acute Care Hospital [facility] What to do if you have Problems For any increased pain, shortness of breath, bleeding, nausea or vomiting, chestpain, or any unexpected problems, contact your Primary Care Provider. Call [facility] ([phone]) or report to the closest Emergency Room. Call 911 if necessary. 07/05/252223 <Electronically signed by Abhi Pina MD> Cosigner Signature (if applicable): CC: Dr. Ivette Grimes MD ~ Signed [facility] Work Phone: 1(520) 227-282108-22-2025 Progress [facility] [address] [place] [address] [address] [place] [address] OFFICE VISIT Date of Service: 06/25/25 MR#: [id number] Acct: [id number] Name: TORI GRAY Rep #: [id number] : 1980 Provider: Dr. Killian Quiroga MD Age/Sex: 45/F Location: [facility] Status: Signed Intake Vital Signs [...] Cosigner Signature: Date (if applicable) CC: ~ [facility]08-22-2025 Progress note Author Brett Quiroga [facility] Note Date/Time June 25, 2025 9: 35am [facility] [address] [place] [address] OFFICE VISIT Date of Service: 06/25/25 MR#: [id number] Acct: [id number] Name: TORI GRAY Rep #: [id number] : 1980 Provider: Dr. Killian Quiroga MD Age/Sex: 45/F Location: [facility] Status: Signed Intake Vital Signs [...] Cosigner Signature: Date (if applicable) CC: ~ [facility] Work Phone: 1(827) 210-442508-20-2025 Discharge summary Author Brett Quiroga [facility] Note Date/Time June 23, 2025 8: 39am [facility] Medical Records Department [address] [place] [address] Instructions for Home/Discharge Instructions 06/23/25 0836 MR#: [id number] Acct: [id number] Name: TORI GRAY Rep #:[id number] : 1980 45 From: Brett Quiroga MD [...] CC: Dr. Ivette Grimes MD ~ Signed [facility] Work Phone: 1(685) 845-751308-20-2025 Consult note [facility] Medical Records Department [address] [place] [address] Pre-Anesthesia Evaluation 06/23/25 0739 MR#: [id number] Acct: [id number] Name: TORI GRAY Rep #:[id number] : 1980 45 From: Ankur ROJO PCP: Dr. Ivette Grimes MD Status:REG S DC Y Race: C Location: [place] [address]-1 ASA Classification* ASA Classification ASA Classification: 3 [...] DECOMPRESSION DEBRIDMENT Anesthesia History Anesthesia History - oracle solutions architect: Anesthesia History - oracle solutions architect Hx Hospitalization No 06/10/25 09:08 Any Problems [...] take am of surgery PONV PONV - oracle solutions architect: PONV - oracle solutions architect Female Yes 06/10/25 09:08 HX of Motion [...] 06/23/25 06:40 Respiratory Assessment Respiratory Assessment - oracle solutions architect: Respiratory Tract Infection Hx - oracle solutions architect Hx Respiratory Tract Infection No 06/10/25 09:08 STOP Sleep Apnea STOP Sleep Apnea - oracle solutions architect: STOP Sleep Apnea - oracle solutions architect Hx Hypertension No: LISINOPRIL FOR LIVER 06/10/25 [...] Tobacco Use History Tobacco Use History - oracle solutions architect: Tobacco Use History - oracle solutions architect Tobacco Use Non-smoker 03/09/25 09:20 Smoking Status Never smoker 06/10/25 09:08 Hx Tobacco Use No 06/10/25 09:08 Years Smoking Packs Smoked per Day Smoking Cessation Date was within the last 15 years Hx Smoking Cessation Date Hx Smoking Cessation Counseling Hematologic Medial History Hematologic Hx - oracle solutions architect: 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 Ivette Grimes MD Status:REG S DC Y Race: C Location: [place] [address] ASA Classification* ASA Classification ASA Classification: 3 [...] DECOMPRESSION DEBRIDMENT Anesthesia History Anesthesia History - oracle solutions architect: Anesthesia History - oracle solutions architect Hx Hospitalization No 06/10/25 09:08 Any Problems [...] take am of surgery PONV PONV - oracle solutions architect: PONV - oracle solutions architect Female Yes 06/10/25 09:08 HX of Motion [...] 06/23/25 06:40 Respiratory Assessment Respiratory Assessment - oracle solutions architect: Respiratory Tract Infection Hx - oracle solutions architect Hx Respiratory Tract Infection No 06/10/25 09:08 STOP Sleep Apnea STOP Sleep Apnea - oracle solutions architect: STOP Sleep Apnea - oracle solutions architect Hx Hypertension No: LISINOPRIL FOR LIVER 06/10/25 [...] Tobacco Use History Tobacco Use History - oracle solutions architect: Tobacco Use History - oracle solutions architect Tobacco Use Non-smoker 03/09/25 09:20 Smoking Status Never smoker 06/10/25 09:08 Hx Tobacco Use No 06/10/25 09:08 Years Smoking Packs Smoked per Day Smoking Cessation Date was within the last 15 years Hx Smoking Cessation Date Hx Smoking Cessation Counseling Hematologic Medial History Hematologic Hx - oracle solutions architect: 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 Hx of Blood Transfusion No 06/10/25 09:08 [...] confused, unrespo /Reproduction History /Reproductive History - oracle solutions architect: /Reproductive Hx- oracle solutions architect Hx Now No 06/10/25 09:08 Gestational Age [...] CRNA Cosigner Signature: Date CC: ~ Signed [facility] Work Phone: 1(601) 933-604108-20-2025 History and physical note Author Brett Quiroga [facility] Note Date/Time June 23, 2025 7: 14am [facility] Medical Records Department [address] [place] [address] History & Physical Exam 06/23/25711 MR#: [id number] Acct: [id number] Name: TORI GRAY Rep #:[id number] : 1980 45 From: Brett Quiroga MD PCP: Dr. Ivette Grimes MD Status:REG S DC Location: [place] [address]-1 HPI - General HPI Narrative TORI GRAY, is a 45 F who presents for left shoulder arthroscopy, subacromial decompression, debridement. no change to h and p. ok to proceed. rab, post op instructions, narcotic counselling. possible licodaine allergy, butafter discussion with anesthesia, the patient and the anesthesia provider have decided to proceed with a block. left shoulder marked. ok to proceed. MR#: [id number] Acct: [id number] Name: TORI GRAY Rep #: [id number] : 1980 Provider: Dr. 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 Supplemental Info [facility] Imaging Services [address] [place], [place] [address] Upper Ext Joint Only(Routine) MR#: [id number] Acct: [id number] Name: TORI GRAY Rep #: [id number] : 1980 F 44 From: Salazar Tyson MD PCP: Dr. Ivette Grimes MD Status: REG CLI Study: Upper Ext Joint Only(Routine) Date of Exam: 04/17/25 Exam# [id number] Ordering Dr: Brett Quiroga MD PROCEDURE: UPPER [...] blood flow before exercises. 4. Anti-Inflammatory Medications: Uzup-tbr-ihzsudb medications like ibuprofen or naproxen can help [...] radial pulse. strength FE 4+, ER 5/5. [facility] Medical History Diabetes Fatty liver Gastric reflux [...] Quiroga MD; Dr. Ivette Grimes MD~ Signed [facility] Work Phone: 1(143) 405-263908-20-2025 Consult note [facility] Medical Records Department [address] [place] [address] Anesthesia Postop Eval I 06/23/2557 MR#: [id number] Acct: [id number] Name: ISAACROSIEFOREIGNDinh KELLY Rep #:[id number] : 1980 45 From: Ankur ROJO PCP: Dr. 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 Ivette Grimes MD ~ Signed [facility]08-20-2025 Procedure note [facility] Medical Records Department [address] [place] [address] Operative Report 06/23/25 0831 MR#: [id number] Acct: [id number] Name: TORI GRAY Rep #:[id number] : 1980 45 From: Brett Quiroga MD PCP: Dr. Ivette Grimes MD Status:REG S LA Location: [facility] 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 eligibility services representative: Yes Mobile Development Manager: jamila Tasks completed by nurseryman assistant: Retracting Additional commissary assistant?: No Type of Anesthesia: Block,Regional and [...] home according to day surgery criteria. CPT 65452, 63053 Surgical Findings: As above Complications Complications: No Admit VTE Documentation VTE Present on Admission: No VTE Mechan Device Prophylaxis: SCD's VTE Pharm Prophylaxis ordered?: No Reason prophylaxis not ordered: Treatment Not Indicated 06/23/25 0836 Cosigner Signature (if applicable): CC: Dr. Brett Quiroga MD; Dr. Ivette Grimes MD~ Signed [facility]08-20-2025 History and physical note [facility] Medical Records Department [address] [place] [address] History & Physical Exam 06/23/25 0712 MR#: [id number] Acct: [id number] Name: TORI GRAY Rep #:[id number] : 1980 45 From: Brett Quiroga MD PCP: Dr. Ivette Grimes MD Status:REG S DC Location: [place] [address]-1 HPI - General HPI Narrative TORI GRAY, is a 45 F who presents for left shoulder arthroscopy, subacromial decompression, debridement. no change to h and p. ok to proceed. rab, post op instructions, narcotic counselling. possible licodaine allergy, butafter discussion with anesthesia, the patient and the anesthesia provider have decided to proceed with a block. left shoulder marked. ok to proceed. MR#: [id number] Acct: [id number] Name: TORI GRAY Rep #: [id number] : 1980 Provider: Dr. Brett Quiroga MD Age/Sex: 44/F Location: [facility] Status: Signed Intake Vital Signs [...] made by me, Dr. Kassie MD 05/06/25 0979. Part of today?s visit was documented by [ ], acting as scribe. TORI GRAY is a 44 year old F here today for follow-up left shoulder MRI. Doing PT with [facility]. getting worse. cant do injections. seems to be getting worse, with ADLs as well. worse with lifting. lat and anterior pain. 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 Supplemental Info [facility] Imaging Services [address] [place], [place] [address] Upper Ext Joint Only(Routine) MR#: [id number] Acct: [id number] Name: TORI GRAY Rep #: [id number] : 1980 F 44 From: Salazar Tyson MD PCP: Dr. Ivette Grimes MD Status: REG CLI Study: Upper Ext Joint Only(Routine) Date of Exam: 04/17/25 Exam# [id number] Ordering Dr: Brett Quiroga MD PROCEDURE: UPPER [...] subacromial subdeltoid bursa, with bursitis. [facility] independently reviewed the imaging. Concur with [...] blood flow before exercises. 4. Anti-Inflammatory Medications: Ybxk-ixn-ixqlzcg medications like ibuprofen or naproxen can help [...] radial pulse. strength FE 4+, ER 5/5. [facility] Medical History Diabetes Fatty liver Gastric reflux [...] Quiroga MD; Dr. Ivette Grimes MD~ Signed [facility]08-20-2025 [facility]08-14-2025 Progress [facility] [address] [place] [address] OFFICE VISIT Date of Service: 06/17/25 MR#: [id number] Acct: [id number] Name: TORI GRAY Rep #: [id number] : 1980 Provider: CONCEPCIÓN Rehman Age/Sex: 45/F [place] [facility] [place]: Signed Intake Vital Signs 05/06/25 10:04 [...] History mg/3 mL) subcutaneous pen injector (Ozempic) [facility] Medical History Diabetes Fatty liver Gastric reflux [...] CPT Codes Procedures - Manipulation: 3-4 regions (95082) Procedures - Traction, Mechanical: Yes (20450) 06/17/25 1005 .C.> Date _ Bibiana Rehman D.C. Cosigner Signature: Date (if applicable) CC: ~ [facility]08-14-2025 Progress note Author Bibiana Rehman [facility] Note Date/Time June 17, 2025 10 :05am [facility] [address] [place] [address] OFFICE VISIT Date of Service: 06/17/25 MR#: [id number] Acct: [id number] Name: TORI GRAY Rep #: [id number] : 1980 Provider: CONCEPCIÓN Rehman Age/Sex: 45/F Location: [facility] Status: Signed Intake Vital Signs 05/06/25 10:04 [...] History mg/3 mL) subcutaneous pen injector (Ozempic) [facility] Medical History Diabetes Fatty liver Gastric reflux [...] CPT Codes Procedures - Manipulation: 3-4 regions (28030) Procedures - Traction, Mechanical: Yes (11287) 06/17/25 1005 <Electronically signed by Bibiana Aguilar> Date _ Bibiana Rehman D.C. Cosigner Signature: Date (if applicable) CC: ~ [facility] [employer] Work Phone: 1(538) 192-688008-07-2025 Telephone encounter Note* Telephone Encounter - Little Murphy MA - 06/10/2025 2:17 PM EDT LDL Direct scanned to chart [facility]08-07-2025 Miscellaneous Notes* Telephone Encounter - Little Murphy MA - 06/10/2025 2:17 PM EDT LDL Direct scanned to chart * Telephone Encounter - Nirmala Storey LPN - 06/09/2025 12:53 PM EDT wavecatch message sent to the patient. * Telephone Encounter - Ivette Grimes MD - 06/09/2025 10:48 AM EDT Lets increase the ozempic to 2 mg a day. Call sugars in two weeks. Watch the diet. * Telephone Encounter - Nirmala Storey LPN - 06/09/2025 10:20 AM EDT HgbA1C from [facility] 7.4 [facility] in [facility] Hospital Discharge instructionsAmbulatory Orders* 12 Lead EKG [[facility]] Time Frame: 06/10/25, Location: None Selected [facility] Work Phone: 1(229) 409-586208-06-2025 Telephone encounter Note* Telephone Encounter - Nirmala Storey LPN - 06/09/2025 12:53 PM EDT wavecatch message sent to the patient. [facility]08-06-2025 Telephone encounter Note* Telephone Encounter - Ivette Grimes MD - 06/09/2025 10:48 AM EDT Lets increase the ozempic to 2 mg a day. Call sugars in two weeks. Watch the diet. [facility] [facility] Tele[facility] encounter Note* Telephone Encounter - Nirmala Storey LPN - 06/09/2025 10:20 AM EDT HgbA1C from [facility] 7.4 [facility]08-04-2025 NoteHNO ID: [id number] Author: IVETTE GRIMES MD Service: ? Author [...] for June [address] Quiroga at [facility]. - Follow-up appointment with Dr. Camacho [...] 1 tablet by mouth once daily. Ipratropium Wynne (ATROVENT) 21 mcg (0.03 %) nasal spray [...] 1 Each by INTRAUTERINE route as directed. Aicqiosc-Va-Yzr-Fe-FA tab Take 1 tablet by mouth once [...] Age of Onset Alcohol/Drug Mother Heart Father AK Cancer Father PANCREATIC CANCER Diabetes Father Coronary Artery Disease Father Anxiety disorder Sister Depression Sister Depression Brother Cancer Maternal Grandmother LUNG CANCER Diabetes Maternal Grandfather Heart Paternal Grandmother TRIPLE BYPASS SURGERY S (more content not included)...[facility]08-04-2025 History of Present illness Narrative* Ivette Grimes [...] for June [address] Quiroga at [facility]. - Follow-up appointment with Dr. Camacho [...] 1 tablet by mouth once daily. Ipratropium Wynne (ATROVENT) 21 mcg (0.03 %) nasal spray [...] 1 Each by INTRAUTERINE route as directed. Jdnpjbir-Qv-Rdk-Fe-FA tab Take 1 tablet by mouth once [...] Age of Onset Alcohol/Drug Mother Heart Father [place] Cancer Father PANCREATIC CANCER Diabetes Father Coronary [...] Obesity, Class III, BMI 40-49.9 (morbid obesity) ([facility]) (E66.813) - Patient is physically active and maintains a balanced diet. 10. Headache, unspecified headache type (R51.9) - Migraines well-controlled; continues Topamax and gabapentin (reduced to once nightly). - Appointment scheduled for August 04 with Fatuma Cervantes to discuss resuming Botox treatment. 11. Encounter for screening mammogram for breast cancer (Z12.31) - Order for screening mammogram to be sent to [facility]. (See patient after visit summary for additional instructions to patient) Ivette Grimes MD Recording using [employer] software for draft documentation of the visit was discussed with the patient/authorized congressional representative; all questions welcomed and answered. Patient/authorized congressional representative agreed to proceed documented in this encounterUniversity Hospitals Portage Medical Center08-04-2025 Instructions* Patient Instructions* Ivette Grimes [...] with Dr. Quiroga on June 23 at [facility]. - Keep your neurology appointment on [...] concerns arise. documented in this encounterUniversity Hospitals Portage Medical Center06-18-2025 Evaluation note* Diagnosis Onset Date Resolution Status [...] left shoulder acute July 09, 2025 9:21am [facility] Work Phone: 1(454) 747-162806-18-2025 Evaluation note* Diagnosis Onset Date Resolution Status [...] left shoulder acute August 05, 2025 9:12am [facility] Work Phone: [phone]) 453-945206-04-2025 Telephone encounter Note* Telephone Encounter - Ivette Grimes MD - 04/07/2025 3:34 PM EDT Requests refill. [facility]06-04-2025 Miscellaneous Notes* Telephone Encounter - Ivette Grimes MD - 04/07/2025 3:34 PM EDT Requests refill. documented in this encounterUniversity Hospitals Portage Medical Center05-29-2025 Telephone encounter Note * Telephone Encounter - Nakia Caraballo RN - 04/01/2025 12:45 PM EDT Botox approved until 11/03/25. Patient and scheduling made aware. She is a patient of Fatuma's butdue to her being out on maternity leave, patient will need scheduled with another FÉLIX. Saw Amanda on03/09/25. Latonia Caraballo RN, BSN [facility] Work Phone: [phone] Miscellaneous Notes* Telephone Encounter - Nakia Caraballo RN - 04/01/2025 12:45 PM EDT Botox approved until 11/03/25. Patient and scheduling made aware. She is a patient of Fatuma's butdue to her being out on maternity leave, patient will need scheduled with another FÉLIX. Saw Amanda on03/09/25. Latonia Caraballo RN, BSN documented in this encounterUniversity Hospitals Portage Medical Center05-19-2025 Evaluation note* Diagnosis Onset Date Resolution Status [...] left shoulder acute July 09, 2025 9:21am [facility] Work Phone: 1(319) 123-136005-16-2025 Telephone encounter Note* Telephone Encounter - Nakia Caraballo RN - 03/19/2025 3:14 PM EDT Botox referral sent to pharmacy as patient would like to restart botox. Last botox 09/03/24. Latonia Caraballo RN, BSN [facility] Work Phone: [phone]) 771-928605-16-2025 Miscellaneous Notes* Telephone Encounter - Nakia Caraballo RN - 03/19/2025 3:14 PM EDT Botox referral sent to pharmacy as patient would like to restart botox. Last botox 09/03/24. Latonia Caraballo RN, BSN documented in this encounterUniversity Hospitals Portage Medical Center05-09-2025 Radiology Diagnostic study note [facility] Imaging Services [address] [place] [address] [id number] Shoulder min 2 Views MR#: [id number] Acct: [id number] Name: TORI GRAY Rep #: [id number] : 1980 F 44 From: Tameka Newsome MD PCP: Dr. Ivette Grimes MD Status: REG C EVER Study:Shoulder min 2 Views Date of Exam: 03/11/25 Exam# [id number] Ordering Dr: Brett Quiroga MD PROCEDURE: SHOULDER [...] Quiroga MD; Dr. Ivette Grimes MD ~ Anaesthesiologist: Signed [facility]05-06-2025 Evaluation note* Diagnosis Onset Date Resolution Status Admit Date Segmental and somatic dysfunction of cervical region acute M ay 2024 9:17am Segmental and somatic dysfunction of lumbar region acute March 09, 2025 9:17am Segmental and somatic dysfunction of pelvic region acute March 09, 2025 9:17am Segmental and somatic dysfunction of thoracic region acute [facility] 2024 9:17am Disc displacement, lumbar chronic March 09, 2025 9:17am Left shoulder pain inactive March 222024 8:58am Back pain acute March 22, 2025 9:33am Segmental and somatic dysfunction of cervical region acute [facility] 2024 9:33am Segmental and somatic dysfunction of lumbar region acute March 22, 2025 9:33am Segmental and somatic dysfunction of pelvic region acute March 22, 2025 9:33am Segmental and somatic dysfunction of thoracic region acute [facility] 2024 9:33am Segmental and somatic dysfunction of [...] displacement, lumbar chronic June 17, 2025 9:27am [facility] Work Phone: [phone] Evaluation note* Diagnosis Onset Date Resolution Status [...] left shoulder acute June 23, 2025 6:20am [facility] Work Phone: [phone] Evaluation note* Diagnosis Onset Date Resolution Status Admit Date Segmental and somatic dysfunction of cervical region acute [facility] 2024 9:17am Segmental and somatic dysfunction of lumbar region acute March 09, 2025 9:17am Segmental and somatic dysfunction of pelvic region acute March 09, 2025 9:17am Segmental and somatic dysfunction of thoracic region acute [facility] 2024 9:17am Disc displacement, lumbar chronic March 09, 2025 9:17am Left shoulder pain inactive March 222024 8:58am Back pain acute March 22, 2025 9:33am Segmental and somatic dysfunction of cervical region acute [facility] 2024 9:33am Segmental and somatic dysfunction of lumbar region acute March 22, 2025 9:33am Segmental and somatic dysfunction of pelvic region acute March 22, 2025 9:33am Segmental and somatic dysfunction of thoracic region acute [facility] 2024 9:33am Segmental and somatic dysfunction of [...] left shoulder acute June 25, 2025 9:12am [facility] Work Phone: 1(221) [phone] Evaluation note* Diagnosis Onset Date Resolution Status [...] 9:46pm Sepsis acute July 05, 2025 9:46pm [facility] Work Phone: [phone] 265-380005-06-2025 History of Present illness Narrative* Amanda Arteaga [...] visit. Either the patient or their legal congressional representative has been informed of the risks and benefits of -- and alternatives to -- treatment through a remote evaluation andconsents to proceed with the evaluation remotely. Confirmed verbally that the patient currently located in the [facility].Yes Confirmed verbally that the patient consents to being seen virtually today.Yes Confirmed verbally that the patient consents to being seen by a physician commissary assistant.Yes CHIEF COMPLAINT: Botox for migraines Tori [...] 2. Gets botox for migraines with [facility]. Patient sustained fall and head [...] 1 tablet by mouth once daily. Ipratropium Wynne (ATROVENT) 21 mcg (0.03 %) nasal spray [...] 1 Each by INTRAUTERINE route as directed. Natoma-3 Fatty Acids (FISH OIL) 500 mg cap Take 1 capsule by mouth once daily. blood sugar diagnostic (BLOOD GLUCOSE TEST) test strip Test blood sugar(s) 1 times daily. Dx: Type 2 DM - Controlled E11.9 Insulin: Yes Lancets lancets Test blood sugar(s) 1 times daily. Dx: Type 2 DM - Controlled E11.9 Insulin: No Jxgebkna-Oo-Ewy-Fe-FA tab Take 1 tablet by mouth once [...] which included preparing to see the patient, jnvj-te-fphv patient care, completing clinical documentation, obtaining and/or [...] not recommended) documented in this encounterUniversity Hospitals Portage Medical Center05-06-2025 NoteHNO ID: [id number] Author: AMANDA ARTEAGA PA-C Service: ? Author Type: Physician Gravure Press Operator Type: Progress Notes Filed: 03/10/2025 07:59 Note Text: [facility] New Patient Evaluation [...] visit. Either the patient or their legal congressional representative has been informed of the risks and benefits of -- and alternatives to -- treatment through a remote evaluation and consents to proceed with the evaluation remotely. Confirmed verbally that the patient currently located in the state of [place].Yes Confirmed verbally that the patient consents to being seen virtually today.Yes Confirmed verbally that the patient consents to being seen by a physician commissary assistant.Yes CHIEF COMPLAINT: Botox for migraines Tori [...] 2. Gets botox for migraines with [facility]. Patient sustained fall and head [...] time -Irma 15 a (more content not included)...[facility]05-01-2025 Telephone encounter Note* Telephone Encounter - Beata Pitts LPN - 03/04/2025 2:41 PM EDT Tried contacting patient to confirm that she just wants to discuss botox rather than get injectionsfor her upcoming appt as it's a virtual visit, per [place]. Beata Pitts LPN March 04, 2025 2:42 PM [facility]05-01-2025 Miscellaneous Notes* Telephone Encounter - Beata Pitts LPN - 03/04/2025 2:41 PM EDT Tried contacting patient to confirm that she just wants to discuss botox rather than get injectionsfor her upcoming appt as it's a virtual visit, per [place]. Beata Pitts LPN March 04, 2025 2:42 PM documented in this encounterUniversity Hospitals Portage Medical Center04-29-2025 History of Present illness Narrative* [...] visit. Either the patient or their legal congressional representative has been informed of the risks [...] to send over referral at [facility]. They specialize in shoulders. Seen at optometry at [facility] for dilated vision check on February 04. [...] 1 tablet by mouth once daily. Ipratropium Wynne (ATROVENT) 21 mcg (0.03 %) nasal spray [...] 1 Each by INTRAUTERINE route as directed. Natoma-3 Fatty Acids (FISH OIL) 500 mg cap Take 1 capsule by mouth once daily. blood sugar diagnostic (BLOOD GLUCOSE TEST) test strip Test blood sugar(s) 1 times daily. Dx: Type 2 DM - Controlled E11.9 Insulin: Yes Lancets lancets Test blood sugar(s) 1 times daily. Dx: Type 2 DM - Controlled E11.9 Insulin: No Jlbbrrfl-Px-Hvx-Fe-FA tab Take 1 tablet by mouth once [...] Age of Onset Alcohol/Drug Mother Heart Father [place] Cancer Father PANCREATIC CANCER Diabetes Father Coronary [...] Grimes MD documented in this encounterUniversity Hospitals Portage Medical Center04-29-2025 NoteHNO ID: [id number] Author: IVETTE GRIMES MD Service: ? Author [...] visit. Either the patient or their legal congressional representative has been informed of the risks [...] to send over referral at [facility]. They specialize in shoulders. Seen at optometry at [facility] for dilated vision check on February 04. [...] 1 tablet by mouth once daily. Ipratropium Wynne (ATROVENT) 21 mcg (0.03 %) nasal spray [...] 1 Each by INTRAUTERINE route as directed. Natoma-3 Fatty Acids (FISH OIL) 500 mg cap Take 1 capsule by mouth once daily. blood sugar diagnostic (BLOOD GLUCOSE TEST) test strip Test blood sugar(s) 1 times daily. Dx: Type 2 DM - Controlled E11.9 Insulin: Yes Lancets lancets Test blood sugar(s) 1 times daily. Dx: Type 2 DM - Controlled E11.9 Insulin: No Fjjzmdze-Yh-Fgz-Fe-FA tab Take 1 tablet by mouth once [...] Age of Onset Alcohol/Drug Mother Heart Father AK Cancer Father PANCREATIC CANCER Diabetes Father Coronary Artery Disease Father Anxiety disorder Sister Depression Sister Depression Brother Cancer Maternal Grandmother LUNG CANCER Diabetes Maternal Grandfather Heart Paternal Grandmother TRIPLE BYPASS SURGERY Social History Tobacco Use Smoking status: Never Smokeless tobacco: Never Vaping Use Vaping status: Never Used Substance Use Topics Alcohol use (more content not included)...[facility]04-03-2025 Evaluation note* Diagnosis Onset Date Resolution Status [...] displacement, lumbar chronic March 09, 2025 9:17am [facility] Work Phone: 1([phone]) 383-504604-03-2025 Evaluation note* Diagnosis Onset Date Resolution Status [...] Left shoulder pain inactive March 222024 8:58am [facility] Work Phone: 1(765) 487-735104-03-2025 Evaluation note* Diagnosis Onset Date Resolution Status [...] and somatic dysfunction of thoracic region acute [facility] 2024 9:33am [facility] Work Phone: [phone]) [phone] Evaluation note* Diagnosis Onset Date Resolution Status [...] and somatic dysfunction of thoracic region acute [facility] 2024 9:17am Disc displacement, lumbar chronic March 09, 2025 9:17am Left shoulder pain inactive March 222024 8:58am Back pain acute March 22, 2025 9:33am Segmental and somatic dysfunction of cervical region acute [facility] 2024 9:33am Segmental and somatic dysfunction of lumbar region acute March 22, 2025 9:33am Segmental and somatic dysfunction of pelvic region acute March 22, 2025 9:33am Segmental and somatic dysfunction of thoracic region acute [facility] 2024 9:33am Segmental and somatic dysfunction of [...] region suspected April 05, 2025 1 0:22am [facility] Work Phone: [phone] Evaluation note* Diagnosis Onset Date Resolution Status [...] displacement, lumbar chronic April 21, 2025 9:49am [facility] Work Phone: [phone]) 636-376104-03-2025 Evaluation note* Diagnosis Onset Date Resolution Status [...] Left shoulder pain inactive May 062024 10:02am [facility] Work Phone: [phone] Evaluation note* Diagnosis Onset Date Resolution Status [...] somatic dysfunction of cervical region acute [facility] 2024 10:22am Segmental and somatic dysfunction of lumbar region acute [facility] 2024 10:22am Segmental and somatic dysfunction of pelvic region acute Apr 10:22am Segmental and somatic dysfunction of thoracic region acute [facility] 2024 10:22am Disc displacement, lumbar chronic April [...] displacement, lumbar chronic June 01, 2025 10:30am [facility] Work Phone: 1([phone]) [phone] Telephone encounter Note* Telephone Encounter - Evon [...] her know when it is ready for peanut picker. [facility]04-02-2025 Miscellaneous Notes* Telephone Encounter - [...] her know when it is ready for peanut picker. * Telephone Encounter - Mirna Santos MA - 02/01/2025 2:42 PM EDT Faxed form completed to [employer] with A1C and office note Mirna Santos MA * Telephone Encounter - Evon Philippe LPN - 01/29/2025 8:31 AM EDT [employer] RESPONSE. [facility] does not handle this review. Please visit [email or web address] to start a prior authorization or fax information to [phone]. Please include all supporting chart notes. You may contact [employer] at [phone]. WILL FAX PA REQUEST TO NUMBER PROVIDED. [...] needs PA due to dose change). Provider: [employer] Name: [facility] [email or web address] Phone number: [phone] Patient ID number: [id number] Pharmacy Name: [facility] Telephone number: [phone] documented in this encounterUniversity Hospitals Portage Medical Center03-31-2025 Telephone encounter Note * Telephone Encounter - Mirna Santos MA - 02/01/2025 2:42 PM EDT Faxed form completed to [employer] with A1C and office note Mirna Santos MA [facility]03-28-2025 Telephone encounter Note* Telephone Encounter - Evon Philippe LPN - 01/29/2025 8:31 AM EDT [employer] RESPONSE. [facility] does not handle this review. Please visit [email or web address] to start a prior authorization or fax information to [phone]. Please include all supporting chart notes. You may contact [facility] at [phone]. WILL FAX PA REQUEST TO NUMBER PROVIDED. Records faxed to for PA. [facility]03-27-2025 Telephone encounter Note* Telephone Encounter - Eovn Philippe LPN - 01/28/2025 4:56 PM EDT Unable to complete electronically. Will try on covermymeds [facility]03-27-2025 Telephone encounter Note* Telephone Encounter - Evon Philippe LPN - 01/28/2025 4:55 PM EDT Electronic PA requested. [facility]03-27-2025 Telephone encounter Note* Telephone Encounter - Krystle Barnett RN - 01/28/2025 4:51 PM EDT Prior Authorization Documentation Prior authorization requested for the following medication: Medication: Ozempic 1 mg (all though PA done in Aug 2024 and approved until Aug 2025 this needs PA due to dose change). Provider: [employer] Name: [facility] [employer] Phone number: [phone] Patient ID number: [id number] Pharmacy Name: [facility] Telephone number: [phone] [facility]03-27-2025 Telephone encounter Note* Telephone Encounter - Dennise Robles MA - 01/28/2025 8:45 AM EDT Scan on 01/28/2025 8:29 AM by ProviderSherry PA-C: BMP Scan on 01/28/2025 8:17 AM by ProviderSherry PA-C: HGB A1C [facility]03-27-2025 Miscellaneous Notes* Telephone Encounter - Dennise Robles MA - 01/28/2025 8:45 AM EDT Scan on 01/28/2025 8:29 AM by ProviderSherry PA-C: BMP Scan on 01/28/2025 8:17 AM by Sherry Mccallum PA-C: HGB A1C documented in this encounterUniversity Hospitals Portage Medical Center03-21-2025 NoteHNO ID: [id number] Author: IVETTE GRIMES MD Service: ? Author [...] 1 tablet by mouth once daily. Ipratropium Wynne (ATROVENT) 21 mcg (0.03 %) nasal spray [...] 1 Each by INTRAUTERINE route as directed. Natoma-3 Fatty Acids (FISH OIL) 500 mg cap Take 1 capsule by mouth once daily. blood sugar diagnostic (BLOOD GLUCOSE TEST) test strip Test blood sugar(s) 1 times daily. Dx: Type 2 DM - Controlled E11.9 Insulin: Yes Lancets lancets Test blood sugar(s) 1 times daily. Dx: Type 2 DM - Controlled E11.9 Insulin: No Nxorsxuk-Ks-Tpj-Fe-FA tab Take 1 tablet by mouth once [...] Age of Onset Alcohol/Drug Mother Heart Father [place] Cancer Father PANCREATIC CANCER Diabetes Father Coronary [...] Wt Readings: Date: Wt: (more content not included)...[facility]03-21-2025 History of Present illness Narrative* Ivette Grimes [...] 1 tablet by mouth once daily. Ipratropium Wynne (ATROVENT) 21 mcg (0.03 %) nasal spray [...] 1 Each by INTRAUTERINE route as directed. Natoma-3 Fatty Acids (FISH OIL) 500 mg cap Take 1 capsule by mouth once daily. blood sugar diagnostic (BLOOD GLUCOSE TEST) test strip Test blood sugar(s) 1 times daily. Dx: Type 2 DM - Controlled E11.9 Insulin: Yes Lancets lancets Test blood sugar(s) 1 times daily. Dx: Type 2 DM - Controlled E11.9 Insulin: No Mgzkvnqu-Jv-Uuy-Fe-FA tab Take 1 tablet by mouth once [...] Age of Onset Alcohol/Drug Mother Heart Father AK Cancer Father PANCREATIC CANCER Diabetes Father Coronary [...] and prn. documented in this encounterUniversity Hospitals Portage Medical Center02-21-2025 Telephone encounter Note * Telephone [...] December 25, 2024 8:58 AM [facility]02-21-2025 Miscellaneous Notes* Telephone Encounter - [...] by mouth two times a day. Nirmala Sotrey LPN December 25, 2024 8:58 AM documented in this encounterUniversity Hospitals Portage Medical Center02-17-2025 Telephone encounter Note * Telephone Encounter - Jumana Harrell LPN - 12/21/2024 3:19 PM EST Patient notified of results, verbalizes understanding of instructions. Pt stated she is about 80% better with the z-pack and cough drops. Will call is get worse again. Jumana Harrell LPN [facility]02-17-2025 Miscellaneous Notes* Telephone Encounter - [...] zpack? Jenni Jain APRN.GABRIELA documented in this encounterUniversity Hospitals Portage Medical Center02-17-2025 Telephone encounter Note * Telephone [...] improved with the zpack? Jenni Jain APRN.GABRIELA [facility] Work Phone: 1(263) [phone] Telephone encounter Note* Telephone Encounter - Jumana Harrell LPN - 12/11/2024 2:24 PM EST Patient notified of results, verbalizes understanding of instructions. Jumana Harrell LPN [facility]02-07-2025 Miscellaneous Notes* Telephone Encounter - Jumana Harrell LPN - 12/11/2024 2:24 PM EST Patient notified of results, verbalizes understanding of instructions. Jumana Harrell LPN * Telephone Encounter - Jenni Jain APRN.CNP - 12/11/2024 2:16 PM EST Can you please call the patient and let her know that I am still waiting for x- ray results from [facility]. I went ahead and sent in [...] Provider: JENNI JAIN APRN.CNP documented in this encounterUniversity Hospitals Portage Medical Center02-07-2025 Telephone encounter Note * Telephone Encounter - Jenni Jain APRN.CNP - 12/11/2024 2:16 PM EST Can you please call the patient and let her know that I am still waiting for x- ray results from [facility]. I went ahead and sent in [...] until gone. Authorizing Provider: JENNI JAIN APRN.CNP [facility]02-07-2025 Instructions* Patient Instructions* Jenni Jain APRN.CNP - 12/11/2024 11:32 AM EST Get chest xray completed today May use Codeine cough syrup as needed for cough Stay well hydrated Follow up pending test results. documented in this encounterUniversity Hospitals Portage Medical Center02-07-2025 History of Present illness Narrative* Jenni Jain [...] 1 tablet by mouth once daily. Ipratropium Wynne (ATROVENT) 21 mcg (0.03 %) nasal spray [...] 1 Each by INTRAUTERINE route as directed. Natoma-3 Fatty Acids (FISH OIL) 500 mg cap Take 1 capsule by mouth once daily. blood sugar diagnostic (BLOOD GLUCOSE TEST) test strip Test blood sugar(s) 1 times daily. Dx: Type 2 DM - Controlled E11.9 Insulin: Yes Lancets lancets Test blood sugar(s) 1 times daily. Dx: Type 2 DM - Controlled E11.9 Insulin: No Iromqbvt-Pk-Zjp-Fe-FA tab Take 1 tablet by mouth once daily. No current facility-administered medications for this visit. FAMILY HISTORY Problem Relation Age of Onset Alcohol/Drug Mother Heart Father [place] Cancer Father PANCREATIC CANCER Diabetes Father Coronary [...] APRN.CNP This note was partially generated using Narrato voice recognition system. Note was reviewed for accuracy. There may be minor misspellings or grammar miscues with Narrato voice recognition. documented in this encounterUniversity Hospitals Portage Medical Center02-07-2025 NoteHNO ID: [id number] Author: JENNI JAIN APRN.CNP Service: ? Author [...] 1 tablet by mouth once daily. Ipratropium Wynne (ATROVENT) 21 mcg (0.03 %) nasal spray [...] 1 Each by INTRAUTERINE route as directed. Natoma-3 Fatty Acids (FISH OIL) 500 mg cap Take 1 capsule by mouth once daily. blood sugar diagnostic (BLOOD GLUCOSE TEST) test strip Test blood sugar(s) 1 times daily. Dx: Type 2 DM - Controlled E11.9 Insulin: Yes Lancets lancets Test blood sugar(s) 1 times daily. Dx: Type 2 DM - Controlled E11.9 Insulin: No Hbzttckb-Nd-Xbx-Fe-FA tab Take 1 tablet by mouth once daily. No current facility-administered medications for this visit. FAMILY HISTORY Problem Relation Age of Onset Alcohol/Drug Mother Heart Father [place] Cancer Father PANCREATIC CANCER Diabetes Father Coronary [...] : No history o (more content not included)...[facility] 12-11-2024 Telephone encounter Note* Telephone Encounter - Brittney Meredith RN - 12/11/2024 8:17 AM EST Patient calling to make appt for evaluation of respiratory sx's that began approx 4 weeks ago. Pt states she feels she may have bronchitis or pneumonia. States she was at [facility] ER last month due to dizziness, [...] respiratory sx's. Brittney Meredith RN [facility]02-07-2025 Miscellaneous Notes* Telephone Encounter - Brittney Meredith RN - 12/11/2024 8:17 AM EST Patient calling to make appt for evaluation of respiratory sx's that began approx 4 weeks ago. Pt states she feels she may have bronchitis or pneumonia. States she was at [facility] ER last month due to dizziness, [...] Meredith RN documented in this encounterUniversity Hospitals Portage Medical Center01-22-2025 Telephone encounter Note * Telephone [...] November 25, 2024 2:23 PM [facility]01-22-2025 Miscellaneous Notes* Telephone Encounter - [...] Stephanie Parsons. documented in this encounterUniversity Hospitals Portage Medical Center01-22-2025 Telephone encounter Note * Telephone [...] Stephanie Parsons. [facility]01-20-2025 Telephone encounter Note* Telephone Encounter - Judith [...] 12:34 PM [facility]01-20-2025 Miscellaneous Notes* Telephone Encounter - Judith Napier [...] 12:34 PM documented in this encounterUniversity Hospitals Portage Medical Center01-14-2025 NotePatient Outreach (FAMPWS) TORI GRAY ([id number]) 1980 F Date Time Provider Department 11/17/24 IVETTE GRIMES [facility] During your visit today, we recorded the following information about you: Allergies As of Date: 11/17/2024 Noted Allergy Reaction FARXIGA (DAPAGLIFLOZIN) 08/05/2024 8 - GI Upset LIDOCAINE 12/24/2019 4 - Hives METFORMIN 08/05/2024 8 - GI Upset STEROIDS (BETAMETHASONE DIPROPION*12/21/2021 4 - Hives Date Reviewed: 09/03/2024 Reviewed by: Fatuma Beckford PA-C - Fully Assessed Visit Diagnosis:Encounter for screening mammogram for breast cancer [Z12.31] Order(s):[facility] JAQUELIN [[id number]] Order #: [id number] FUTURE Prescriptions as of 12/18/2024 - potassium [...] tablet by mouth once daily. - Ipratropium Wynne (ATROVENT) 21 mcg (0.03 %) nasal spray [...] Each by INTRAUTERINE route as directed. - Natoma-3 Fatty Acids (FISH OIL) 500 mg cap Take 1 capsule by mouth once daily. - blood sugar diagnostic (BLOOD GLUCOSE TEST) test strip Test blood sugar(s) 1 times daily. Dx: Type 2 DM - Controlled E11.9 Insulin: Yes - Lancets lancets Test blood sugar(s) 1 times daily. Dx: Type 2 DM - Controlled E11.9 Insulin: No - Vgvksbrd-Wy-Czs-Fe-FA tab Take 1 tablet by mouth once [...] 05/06/2009 01/23/2010 Routine general medical examination at [facility]*01/23/2010 12/06/2012 Class: Chronic Routine gynecological examination [Z01.419] 01/23/2010 02/22/2014 Class: Chronic Morbid Obesity [E66.01] 01/23/2010 Lumbar Disc Disorder [M51.9] 02/16/2010 Routine general medical examination at [facility]*12/06/2012 02/22/2014 Anxiety [F41.9] 06/07/2014 Type 2 [...] type 2 diabetes m (more content not included)...[facility]12-23-2024 Telephone encounter Note* Telephone Encounter - Priscila [...] October 26, 2024 7:53 PM [facility]12-23-2024 Miscellaneous Notes* Telephone Encounter - [...] 7:53 PM documented in this encounterUniversity Hospitals Portage Medical Center12-16-2024 History of Present illness Narrative* [...] visit. Either the patient or their legal congressional representative has been informed of the risks [...] hours asneeded for wheezing/shortness of breath. Ipratropium Wynne (ATROVENT) 21 mcg (0.03 %) nasal spray [...] 1 Each by INTRAUTERINE route as directed. Natoma-3 Fatty Acids (FISH OIL) 500 mg cap Take 1 capsule by mouth once daily. blood sugar diagnostic (BLOOD GLUCOSE TEST) test strip Test blood sugar(s) 1 times daily. Dx: Type 2 DM - Controlled E11.9 Insulin: Yes Lancets lancets Test blood sugar(s) 1 times daily. Dx: Type 2 DM - Controlled E11.9 Insulin: No Zavrvhvt-Ir-Lxp-Fe-FA tab Take 1 tablet by mouth once [...] Age of Onset Alcohol/Drug Mother Heart Father [place] Cancer Father PANCREATIC CANCER Diabetes Father Coronary [...] Grimes MD documented in this encounterUniversity Hospitals Portage Medical Center12-16-2024 NoteHNO ID: [id number] Author: IVETTE GRIMES MD Service: ? Author [...] visit. Either the patient or their legal congressional representative has been informed of the risks [...] as needed for wheezing/shortness of breath. Ipratropium Wynne (ATROVENT) 21 mcg (0.03 %) nasal spray [...] 1 Each by INTRAUTERINE route as directed. Natoma-3 Fatty Acids (FISH OIL) 500 mg cap Take 1 capsule by mouth once daily. blood sugar diagnostic (BLOOD GLUCOSE TEST) test strip Test blood sugar(s) 1 times daily. Dx: Type 2 DM - Controlled E11.9 Insulin: Yes Lancets lancets Test blood sugar(s) 1 times daily. Dx: Type 2 DM - Controlled E11.9 Insulin: No Fatixyqx-Qv-Sll-Fe-FA tab Take 1 tablet by mouth once [...] Age of Onset Alcohol/Drug Mother Heart Father [place] Cancer Father PANCREATIC CANCER Diabetes Father Coronary [...] wheeze. No pallor. ASSESSM (more content not included)...[facility]12-16-2024 Evaluation note* Diagnosis Onset Date Resolution Status Admit Date Segmental and somatic dysfunction of lumbar region acute Oct 8:57am Segmental and somatic dysfunction of pelvic region acute Oct 8:57am Segmental and somatic dysfunction of thoracic region acute October 19, 024 8:57am Disc displacement, lumbar chronic October 19, 2024 8:57am [facility] Work Phone: 1(133) 715-899311-21-2024 History of Present illness Narrative* Ivette Grimes [...] visit. Either the patient or their legal congressional representative has been informed of the risks [...] No increased caffeine. Sugars are increased recently [phone]'s. Not coming down as much as it [...] hours asneeded for wheezing/shortness of breath. Ipratropium Wynne (ATROVENT) 21 mcg (0.03 %) nasal spray [...] 1 Each by INTRAUTERINE route as directed. Natoma-3 Fatty Acids (FISH OIL) 500 mg cap Take 1 capsule by mouth once daily. blood sugar diagnostic (BLOOD GLUCOSE TEST) test strip Test blood sugar(s) 1 times daily. Dx: Type 2 DM - Controlled E11.9 Insulin: Yes Lancets lancets Test blood sugar(s) 1 times daily. Dx: Type 2 DM - Controlled E11.9 Insulin: No Ydtdmnxo-Tp-Uup-Fe-FA tab Take 1 tablet by mouth once [...] Age of Onset Alcohol/Drug Mother Heart Father [place] Cancer Father PANCREATIC CANCER Diabetes Father Coronary [...] Grimes MD documented in this encounterUniversity Hospitals Portage Medical Center11-21-2024 NoteHNO ID: [id number] Author: IVETTE GRIMES MD Service: ? Author [...] visit. Either the patient or their legal congressional representative has been informed of the risks [...] No increased caffeine. Sugars are increased recently [phone]'s. Not coming down as much as it [...] as needed for wheezing/shortness of breath. Ipratropium Wynne (ATROVENT) 21 mcg (0.03 %) nasal spray [...] 1 Each by INTRAUTERINE route as directed. Natoma-3 Fatty Acids (FISH OIL) 500 mg cap Take 1 capsule by mouth once daily. blood sugar diagnostic (BLOOD GLUCOSE TEST) test strip Test blood sugar(s) 1 times daily. Dx: Type 2 DM - Controlled E11.9 Insulin: Yes Lancets lancets Test blood sugar(s) 1 times daily. Dx: Type 2 DM - Controlled E11.9 Insulin: No Wapvnull-Ck-Tvd-Fe-FA tab Take 1 tablet by mouth once [...] Age of Onset Alcohol/Drug Mother Heart Father [place] Cancer Father PANCREATIC CANCER Diabetes Father Coronary [...] Wt Readings: Date: Wt: (more content not included)...[facility]10-31-2024 Instructions* Patient Instructions* Fatuma Beckford PA-C - [...] further instructions. documented in this encounterUniversity Hospitals Portage Medical Center10-31-2024 History of Present illness Narrative* Fatuma Beckford [...] for migraine Informed Consent Consent Obtained: Written [place] Protocol A moment to CARE was completed [...] applicable Written Consent Obtained: Written LOT #: [id number] Expiration Date: Month: Year: 2025 Second vial: LOT #: [id number] Expiration Date: Month: 12 Year: 2025 Injection Sites Left (Units) Left (Sites) Right (Units) Right (Sites) TOTAL (Units) Fruit Worker 5 1 5 1 10 Procerus [...] Beckford PA-C documented in this encounterUniversity Hospitals Portage Medical Center10-29-2024 Telephone encounter Note * Telephone Encounter - Rebecca Baker - 09/01/2024 4:08 PM EDT Tori was Ok'ed to get her botox appointment moved into a new patient time due to frequent rescheduling of this visit. She is now scheduled for , 09/03. She has also requested a refill of her Nurtec ODT medication. Please adviseRebecca [facility]10-29-2024 Miscellaneous Notes* Telephone Encounter - Rebecca Baker - 09/01/2024 4:08 PM EDT Tori was Ok'ed to get her botox appointment moved into a new patient time due to frequent rescheduling of this visit. She is now scheduled for , 09/03. She has also requested a refill of her Nurtec ODT medication. Please advise, Rebecca Baker documented in this encounterUniversity Hospitals Portage Medical Center10-29-2024 Telephone encounter Note * Telephone [...] date and time. Rebecca Baker [facility]10-29-2024 Miscellaneous Notes* Telephone Encounter - [...] Nieto - 09/01/2024 3:30 PM EDT 09/10 [place] 10/08 and put on wait list. Provider will be out of office. 1st attempt to notify pt, sent MC message. documented in this encounterUniversity Hospitals Portage Medical Center10-29-2024 Telephone encounter Note * Telephone Encounter - Tala Wilson - 09/01/2024 3:54 PM EDT Patient read mychart [facility]10-29-2024 Telephone encounter Note* Telephone Encounter - Steph Nieto - 09/01/2024 3:30 PM EDT 09/10 [place] app[place] rescheduled to 10/08 and put on wait list. Provider will be out of office. 1st attempt to notify pt, sent MC message. [facility]10-08-2024 Telephone encounter Note* Telephone Encounter - Steph Nieto - 08/11/2024 3:58 PM EDT Pt read MC message. [facility]10-08-2024 Miscellaneous Notes* Telephone Encounter - Steph Nieto - 08/11/2024 3:58 PM EDT Pt read MC message. * Telephone Encounter - Steph Nieto - 08/11/2024 3:32 PM EDT [place] appt on 09/10 moved to 3 PM. 1st attempt to notify pt, sent MC message. documented in this encounterUniversity Hospitals Portage Medical Center10-08-2024 Telephone encounter Note * Telephone Encounter - Steph Nieto - 08/11/2024 3:32 PM EDT [place] appt on 09/10 moved to 3 PM. 1st attempt to notify pt, sent MC message. [facility]10-08-2024 Telephone encounter Note* Telephone Encounter [...] August 11, 2024 11:06 AM [facility]10-08-2024 Miscellaneous Notes* Telephone Encounter - [...] 11:06 AM documented in this encounterUniversity Hospitals Portage Medical Center10-03-2024 Telephone encounter Note * Telephone Encounter - Dennise Robles MA - 08/06/2024 10:38 AM EDT APPROVAL. SAGE. EOC # [id number] VALIDITY DATES 08/06/24-08/05/25 Pharmacy informed. Dennise Robles MA [facility]10-03-2024 Miscellaneous Notes* Telephone Encounter - Dennise Robles MA - 08/06/2024 10:38 AM EDT APPROVAL. [employer]. EOC # [id number] VALIDITY DATES 08/06/24-08/05/25 Pharmacy informed. 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 Excited for this because will not be as physical. Reviewed labs recently done at [facility]. A1c was 6.7. ldl was 105. [...] hours asneeded for wheezing/shortness of breath. Ipratropium Wynne (ATROVENT) 21 mcg (0.03 %) nasal spray [...] 1 Each by INTRAUTERINE route as directed. Natoma-3 Fatty Acids (FISH OIL) 500 mg cap Take 1 capsule by mouth once daily. blood sugar diagnostic (BLOOD GLUCOSE TEST) test strip Test blood sugar(s) 1 times daily. Dx: Type 2 DM - Controlled E11.9 Insulin: Yes Lancets lancets Test blood sugar(s) 1 times daily. Dx: Type 2 DM - Controlled E11.9 Insulin: No Gwljdixp-Vb-Nva-Fe-FA tab Take 1 tablet by mouth once [...] Age of Onset Alcohol/Drug Mother Heart Father [place] Cancer Father PANCREATIC CANCER Diabetes Father Coronary [...] Grimes MD documented in this encounterUniversity Hospitals Portage Medical Center09-23-2024 Telephone encounter Note * Telephone [...] July 27, 2024 8:45 AM [facility]09-23-2024 Miscellaneous Notes* Telephone Encounter - [...] 8:45 AM documented in this encounterUniversity Hospitals Portage Medical Center09-17-2024 Telephone encounter Note * Telephone Encounter - Ingrid Salmon MA - 07/21/2024 3:02 PM EDT Pt notified. Requested to have order faxed to [facility]. Order faxed. Ingrid Salmon MA [facility]09-17-2024 Miscellaneous Notes* Telephone Encounter - Ingrid Salmon MA - 07/21/2024 3:02 PM EDT Pt notified. Requested to have order faxed to [facility]. Order faxed. Ingrid Salmon MA * [...] Bower RN documented in this encounterUniversity Hospitals Portage Medical Center09-17-2024 Telephone encounter Note * Telephone Encounter - Ivette Grimes MD - 07/21/2024 2:18 PM EDT ordered [facility]09-17-2024 Telephone encounter Note* Telephone Encounter - Gale Bower RN - 07/21/2024 1:45 PM EDT Patient calls and states that cough is not getting any better. Patient states that Dr. Grimes had told her that if cough had not improved that provider wanted to order her a chest xray. Please review and advise, Gale Bower RN [facility]09-06-2024 Telephone encounter Note* Telephone Encounter - Nirmala Storey LPN - 07/10/2024 11:16 AM EDT Left detailed message for patient. [facility]09-06-2024 Miscellaneous Notes* Telephone Encounter - [...] Bower RN documented in this encounterUniversity Hospitals Portage Medical Center09-06-2024 Telephone encounter Note * Telephone Encounter - Ivette Grimes MD - 07/10/2024 11:11 AM EDT Rx sent for farxiga. Lets try this Call sugars in two weeks. [facility]09-05-20[facility] Telephone encounter Note* Telephone Encounter [...] and advise, Gale Bower RN [facility]09-04-2024 Telephone encounter Note* Telephone Encounter - Ivette Grimes MD - 07/08/2024 2:03 PM EDT noted [facility]09-04-2024 Miscellaneous Notes* Telephone Encounter - Ivette Grimes MD - 07/08/2024 2:03 PM EDT noted * Telephone Encounter - Dennise Robles MA - 07/08/2024 1:13 PM EDT Labs in chart review. Dennise Robles MA documented in this encounterUniversity Hospitals Portage Medical Center09-04-2024 Telephone encounter Note * Telephone Encounter - Dennise Robles MA - 07/08/2024 1:13 PM EDT Labs in chart review. Dennise Robles MA [facility]08-30-20[facility] History of Present illness Narrative* [...] hours asneeded for wheezing/shortness of breath. Ipratropium Wynne (ATROVENT) 21 mcg (0.03 %) nasal spray [...] 1 Each by INTRAUTERINE route as directed. Natoma-3 Fatty Acids (FISH OIL) 500 mg cap Take 1 capsule by mouth once daily. blood sugar diagnostic (BLOOD GLUCOSE TEST) test strip Test blood sugar(s) 1 times daily. Dx: Type 2 DM - Controlled E11.9 Insulin: Yes Lancets lancets Test blood sugar(s) 1 times daily. Dx: Type 2 DM - Controlled E11.9 Insulin: No Biurelwv-El-Ahu-Fe-FA tab Take 1 tablet by mouth once [...] Age of Onset Alcohol/Drug Mother Heart Father [place] Cancer Father PANCREATIC CANCER Diabetes Father Coronary [...] or prn documented in this encounterUniversity Hospitals Portage Medical Center08-24-2024 Telephone encounter Note * Telephone [...] June 27, 2024 11:35 AM [facility]08-24-2024 Miscellaneous Notes* Telephone Encounter - [...] 11:35 AM documented in this encounterUniversity Hospitals Portage Medical Center08-24-2024 Telephone encounter Note * Telephone [...] June 27, 2024 11:29 AM [facility]08-24-[facility]24 Miscellaneous Notes* Telephone Encounter - [...] 11:29 AM documented in this encounterUniversity Hospitals Portage Medical Center08-08-2024 Telephone encounter Note * Telephone Encounter - Lubna De La Garza APRN.GABRIELA - 06/11/2024 12:40 PM EDT Tessalon Perles were ordered. [facility]08-08-[facility]24 Miscellaneous Notes* Telephone Encounter - Lubna De La Garza APRN.CNP - 06/11/2024 12:40 PM EDT Tessalon Perles were ordered. * Telephone Encounter - Ingrid Salmon MA - 06/11/2024 12:25 PM EDT See [employer] message documented in this encounterUniversity Hospitals Portage Medical Center08-08-2024 Telephone encounter Note * Telephone Encounter - Ingrid Salmon MA - 06/11/2024 12:25 PM EDT See [employer] message [facility]08-01-2024 Telephone encounter Note* Telephone Encounter - Claribel Wright LPN - 06/04/2024 3:37 PM EDT Prior Auth Determination: Denied with Cover my meds. Received via: [facility] Medication/ Treatment: [facility] Reason: Outcome N/A today by [facility] Prior Authorization Department does not manage Prior Authorizations for this plan. Please contact member services phone number on the back of the member ID card. Appeal Information (if included): Re submitted via [employer] Faxed to [phone] Confirmation received [facility]08-01-2024 Miscellaneous Notes* Telephone Encounter - Claribel Wright LPN - 06/04/2024 3:37 PM EDT Prior Auth Determination: Denied with Cover my meds. Received via: [facility] Reason: Outcome N/A today by [facility] [address] [facility] Prior Authorization Department does not manage Prior Authorizations for this plan. Please contact member services phone number on the back of the member ID card. Appeal Information (if included): Re submitted via [employer] Faxed to [phone] Confirmation received * Telephone Encounter - Claribel Wright LPN - 06/04/2024 2:22 PM EDT Prior Authorization PENDING Prior Authorization Request From: [facility] Medication/ Treatment: Nurtec Submitted Via Cover My Meds Reference# (if available): (Santos: [id number]) documented in this encounterUniversity Hospitals Portage Medical Center08-01-2024 Telephone encounter Note * Telephone Encounter - Claribel Wright LPN - 06/04/2024 2:22 PM EDT Prior Authorization PENDING Prior Authorization Request From: [facility] Medication/ Treatment: Nurtec Submitted Via Cover My Meds Reference# (if available): (Santos: [id number]) [facility]07-31-[facility] History of Present illness Narrative* [...] visit. Either the patient or their legal congressional representative has been informed of the risks [...] hours asneeded for wheezing/shortness of breath. Ipratropium Wynne (ATROVENT) 21 mcg (0.03 %) nasal spray [...] 1 Each by INTRAUTERINE route as directed. Natoma-3 Fatty Acids (FISH OIL) 500 mg cap Take 1 capsule by mouth once daily. blood sugar diagnostic (BLOOD GLUCOSE TEST) test strip Test blood sugar(s) 1 times daily. Dx: Type 2 DM - Controlled E11.9 Insulin: Yes Lancets lancets Test blood sugar(s) 1 times daily. Dx: Type 2 DM - Controlled E11.9 Insulin: No Ptvgvhvg-Hw-Qxh-Fe-FA tab Take 1 tablet by mouth once [...] Age of Onset Alcohol/Drug Mother Heart Father [place] Cancer Father PANCREATIC CANCER Diabetes Father Coronary [...] Grimes MD documented in this encounterUniversity Hospitals Portage Medical Center07-10-2024 Telephone encounter Note * Telephone [...] May 13, 2024 11:29 AM [facility]07-10-2024 Miscellaneous Notes* Telephone Encounter - [...] 11:29 AM documented in this encounterUniversity Hospitals Portage Medical Center06-28-2024 Telephone encounter Note * Telephone Encounter - Cindy Edouard APRN.CNP - 05/01/2024 12:08 PM EDT Script sent. Cindy Edouard APRN.CNP [facility] Work Phone: 1(571) 476-503406-28-2024 Miscellaneous Notes* Telephone Encounter - Cindy Edouadr APRN.CNP - 05/01/2024 12:08 PM EDT Script sent. Cindy Edouard APRN.CNP * Telephone Encounter - Rukhsana Wood - 05/01/2024 11:47 AM EDT Tori is calling Ivette Grimes MD today to request a medication not on current med list: Tizanidine 4 mg tablet taking every 8 hours as needed #60 refill 0 Pharmacy [facility] Please send today if possible, patient is out of this medicaiton Patient has been identified by name and birthdate. Duration of symptoms: N/A Person calling: self Call patient at: on cell [phone] (home) [phone] (work) [phone] (cell) Was an appointment scheduled: No Closing statement: Results or non-symptom based questions: Thank you for calling [facility], your call will be returned within the next business day. Rukhsana Guerrero documented in this encounterUniversity Hospitals Portage Medical Center06-28-2024 Telephone encounter Note * Telephone Encounter - Rukhsana Wood - 05/01/2024 11:47 AM EDT Tori is calling Ivette Grimes MD today to request a medication not on current med list: Tizanidine 4 mg tablet taking every 8 hours as needed #60 refill 0 Pharmacy [facility] Please send today if possible, patient is out of this medicaiton Patient has been identified by name and birthdate. Duration of symptoms: N/A Person calling: self Call patient at: on cell [phone] (home) [phone] (work) [phone] (cell) Was an appointment scheduled: No Closing statement: Results or non-symptom based questions: Thank you for calling [facility], your call will be returned within the next business day. Rukhsana Guerrero [facility]06-17-2024 Telephone encounter Note* Telephone Encounter [...] France RN April 20, 2024 11:22 AM [facility]06-17-2024 Miscellaneous Notes* Telephone Encounter - [...] 11:22 AM documented in this encounterUniversity Hospitals Portage Medical Center06-17-2024 Telephone encounter Note * Telephone [...] April 20, 2024 10:56 AM [facility]06-17-2024 Miscellaneous Notes* Telephone Encounter - [...] 10:56 AM documented in this encounterUniversity Hospitals Portage Medical Center06-12-2024 Telephone encounter Note * Telephone Encounter - Mirna Santos MA - 04/15/2024 12:33 PM EDT PA approved till 04/14/2025. Faxed approval to pharmacy and patient left Mirna Santos MA [facility]06-12-2024 Miscellaneous Notes* Telephone Encounter - Mirna Santos MA - 04/15/2024 12:33 PM EDT PA approved till 04/14/2025. Faxed approval to pharmacy and patient left Mirna Santos MA * Telephone Encounter - Mirna Santos MA - 04/15/2024 8:42 AM EDT Submitted PA through [employer] for Trulicity 0.75 mg. Form faxed with office notes and A1c results Mirna Sanots MA documented in this encounterUniversity Hospitals Portage [facility] Center06-12-2024 Telephone encounter Note * Telephone Encounter - Mirna Santos MA - 04/15/2024 8:42 AM EDT Submitted PA through [employer] for Trulicity 0.75 mg. Form faxed with office notes and A1c results Mirna Santos MA [facility]06-11-2024 Telephone encounter Note* Telephone Encounter - Sheron Anne - 04/14/2024 9:01 AM EDT Last: 02/15/2023 Noted-Follow up in 3 months. Consider transfer of care back to PCP if patient does well on the current dose of her medication atthe next visit. It does not appear that you have seen her since [facility]06-11-2024 Miscellaneous Notes* Telephone Encounter - Sheron Anne - 04/14/2024 9:01 AM EDT Last: 02/15/2023 Noted-Follow up in 3 months. Consider transfer of care back to PCP if patient does well on the current dose of her medication atthe next visit. It does not appear that you have seen her since documented in this encounterUniversity Hospitals [facility]06-03-2024 Telephone encounter Note * Telephone Encounter - Darrion Severino MA - 04/06/2024 2:26 PM EDT Reminder set for botox authorization to be submitted 05/31. Due for next visit 07/01/24. Previous 04/02/24. [facility]06-03-2024 Miscellaneous Notes* Telephone Encounter - Darrion Severino MA - 04/06/2024 2:26 PM EDT Reminder set for botox authorization to be submitted 05/31. Due for next visit 07/01/24. Previous 04/02/24. documented in this encounterUniversity Hospitals [facility] Center05-30-2024 Instructions* Patient Instructions* Fatuma Beckford [...] further instructions. documented in this encounterUniversity Hospitals Port[facility] Center05-30-2024 History of Present illness Narrative* [...] for migraine Informed Consent Consent Obtained: Written [place] Protocol A moment to CARE was completed [...] applicable Written Consent Obtained: Written LOT #: [id number] Expiration Date: Month: Year: 2025 Second vial: LOT #: [id number] Expiration Date: Month: 6 Year: 2025 Injection Sites Left (Units) Left (Sites) Right (Units) Right (Sites) TOTAL (Units) Fruit Worker 5 1 5 1 10 Procerus [...] Beckford PA-C documented in this encounterUniversity Hospitals [facility] Center04-26-2024 Telephone encounter Note * Telephone Encounter - Alyssa Andrews LPN - 02/28/2024 1:21 PM EDT Patient MyChart message requesting the following refill Refill(s) Requested: Requested Prescriptions Pending Prescriptions Disp Refills tiZANidine (ZANAFLEX) 4 mg tablet 60 tablet 0 Sig: Take 1 tablet by mouth every 8 hours as needed. ALLERGIES Allergen Reactions Lidocaine Hives Steroids [Betametha* Hives (home) [phone] (work) [phone] (cell) Last Office Visit Date: 12/09/2023 Last [facility] Visit: 07/15/2023 Future Appointment: Visit date not found The patients preferred pharmacy has been captured for this encounter? yes Request is for script(s) to be escript to pharmacy. Alyssa Andrews LPN [facility]04-26-2024 Miscellaneous Notes* Telephone Encounter - Alyssa Andrews LPN - 02/28/2024 1:21 PM EDT Patient MyChart message requesting the following refill Refill(s) Requested: Requested Prescriptions Pending Prescriptions Disp Refills tiZANidine (ZANAFLEX) 4 mg tablet 60 tablet 0 Sig: Take 1 tablet by mouth every 8 hours as needed. ALLERGIES Allergen Reactions Lidocaine Hives Steroids [Betametha* Hives (home) [phone] (work) [phone] (cell) Last Office Visit Date: 12/09/2023 Last [facility] Visit: 07/15/2023 Future Appointment: Visit date not found The patients preferred pharmacy has been captured for this encounter? yes Request is for script(s) to be escript to pharmacy. Alyssa Andrews LPN documented in this encounterUniversity Hospitals [facility] Center03-20-2024 Miscellaneous Notes* Telephone Encounter - Stephanie Parsons - 01/22/2024 4:00 PM EDT Patient has been identified by name and date of : Yes Patient phones for refill(s): Patient called for a refill of Tizanidine 4 mg. (Not in refill list). Please send to [facility] pharmacy. Date of last office visit in primary care: 12/09/2023 Date of next office visit in primary care: none Please advise. Thank you. Stephanie Parsons. documented in this encounterUniversity Hospitals [facility] Center03-13-2024 Miscellaneous Notes* Telephone Encounter - Roya Jaramillo LPN - 01/15/2024 12:07 PM EDT Fax received- Anthony has been approved from 01/15/24 - 04/16/24. Roya Jaramillo LPN * Telephone Encounter - Angely Goldsmith LPN - 01/14/2024 5:30 PM EDT Faxed Prior authorization Anthony, signed by provider to [place] [phone]. Angely Goldsmith LPN * Telephone Encounter - Angely Goldsmith LPN - 01/09/2024 5:17 PM EST Prior Authorization from [employer] received for Nurtec 75 mg, EOC number [id number] dated 01/09/2024 requested a completed drug specific form to be completed, signed by provider faxed. Copy placed on MQ bin in the [place] location to review, sign. Angely Goldsmith LPN [...] GRISELDA Jasmine documented in this encounterUniversity Hospitals [facility] Center02-22-2024 Instructions* Patient Instructions* Fatuma Beckford [...] further instructions. documented in this encounterUniversity Hospitals [facility]02-22-2024 History of Present illness Narrative* [...] for migraine Informed Consent Consent Obtained: Written [place] Protocol A moment to CARE was completed [...] applicable Written Consent Obtained: Written LOT #: [id number] Expiration Date: Month: Year: 2025 Second vial: LOT #: [id number] Expiration Date: Month: Year: 2025 Injection Sites Left (Units) Left (Sites) Right (Units) Right (Sites) TOTAL (Units) Fruit Worker 5 1 5 1 10 Procerus [...] Beckford PA-C documented in this encounterUniversity Hospitals [facility] Center02-05-2024 Miscellaneous Notes* Telephone Encounter - Nirmala Storey LPN - 12/09/2023 6:36 PM EST Faxed to [facility]. * Telephone Encounter - Ivette Grimes MD - 12/09/2023 6:04 PM EST Order placed * Telephone Encounter - Nirmala Storey LPN - 12/09/2023 5:48 PM EST Please file mammo. For [facility] need to be mammo with jaquelin. After filed please fax to [facility] for patient. documented in this encounterUniversity Hospitals [facility] Center02-05-2024 History of Present illness Narrative* Ivette Grimes MD - 12/09/2023 5:29 PM EST Patient presents with: Diabetes HPI: Patient presents today for office visit for follow up. Hb was ok per [facility] lab Still has menses. DM:not checking. [...] for 180 days. Take one poqhs Ipratropium Wynne (ATROVENT) 21 mcg (0.03 %) nasal spray [...] 1 Each by INTRAUTERINE route as directed. Natoma-3 Fatty Acids (FISH OIL) 500 mg cap Take 1 capsule by mouth once daily. blood sugar diagnostic (BLOOD GLUCOSE TEST) test strip Test blood sugar(s) 1 times daily. Dx: Type 2 DM - Controlled E11.9 Insulin: Yes Lancets lancets Test blood sugar(s) 1 times daily. Dx: Type 2 DM - Controlled E11.9 Insulin: No Pfjhjlqk-Sg-Crj-Fe-FA tab Take 1 tablet by mouth once [...] Age of Onset Alcohol/Drug Mother Heart Father [place] Cancer Father PANCREATIC CANCER Diabetes Father Coronary [...] Ivette Grimes documented in this encounterUniversity Hospitals Portage Medical Center12-24-2023 Discharge summary Author Luan Zepeda [facility] October 27, 2023 3:44pm Note Date/Time October 27, 2023 3:16pm [facility] Medical Records Department [address] [place] [id number] Emergency Department Summary 10/27/23 MR#: [id number] Acct: [id number] Name: TORI GRAY Rep #:[id number] : 1980 43 From: Luan Barry PCP: Dr. Ivette Grimes MD Status:PRE E R Location: ED HPI History of Present Illness Chief Complaint: Ear Problem [facility] Medical History Abnormal ECG Acute bronchitis [...] %) nasal spray 2 spray intranasal BID jjrwdbydk14/20/20 [History Last Taken 08/03/23] omega-3 fatty acids [...] problems, contact your Primary Care Provider. Call [facility] ([phone]) or report to the closest Emergency Room. Call 911 if necessary. 10/27/23 9664 <Electronically signed by Luan Zepeda DO> Cosigner Signature (if applicable): CC: Dr. Ivette Grimes MD ~ Signed [facility] Work Phone: [phone]) 528-657212-12-2023 Miscellaneous Notes* Telephone Encounter - Fatuma Beckford PA-C - 10/15/2023 8:13 AM EST Patient was given three month supply on 09/13/23 documented in this encounterUniversity Hospitals [facility] Center12-11-2023 Miscellaneous Notes* Telephone Encounter - Quinn Lazo - 10/14/2023 1:43 PM EST Patient phones requesting refills as follows: Requested Prescriptions Pending Prescriptions Disp Refills topiramate (TOPAMAX) 100 mg tablet 60 tablet 5 Sig: Take 1 tablet by mouth two times a day. APRIL 07/15/23 NOV 12/09/23 Please review and advise. Quinn Lazo documented in this encounterUniversity Hospitals [facility] Center12-11-2023 Miscellaneous Notes* Telephone Encounter - [...] (Not on refill list). Please send to [facility] pharmacy. TY documented in this encounterUniversity Hospitals Port[facility] Center11-21-2023 Miscellaneous Notes* Telephone Encounter - Ry Wang - 09/24/2023 8:20 AM EST Patient's request for medication is as follows: Requested Prescriptions Pending Prescriptions Disp Refills FLUoxetine (PROZAC) 20 mg capsule 90 capsule 0 Sig: Take 1 capsule by mouth once daily. Prescription(s) as above. Please process accordingly. Ry Wang documented in this [facility]11-06-2023 Miscellaneous Notes* Telephone Encounter - Quinn Lazo - 09/09/2023 1:21 PM EST Patient phones requesting refills as follows: Requested Prescriptions Pending Prescriptions Disp Refills ZOLMitriptan (ZOMIG) 5 mg tablet 9 tablet 11 Sig: Take 1 tablet (5 mg) by mouth once daily. prn APRIL 07/15/23 NOV 12/09/23 Please review and advise. Quinn Lazo documented in this [facility]10-23-2023 Miscellaneous Notes* Telephone Encounter - Nakia Caraballo RN - 08/26/2023 11:58 AM EDT Patient scheduled for 09/13/23 at 2 pm for botox. Latonia Caraballo RN, BSN documented in this encounterUniversity Hospitals Port[facility] Center10-20-2023 Miscellaneous Notes* Telephone Encounter - Nirmala Storey LPN - 08/23/2023 2:40 PM EDT Completed and faxed as requested. * Telephone Encounter - Dennise Robles - 08/20/2023 11:55 AM EDT Type of form: 2023 Healthy living program Form received via mail When form is completed, Fax form to [phone] Form has been forwarded to Physician Desk: Dr. Sydney Robles documented in this encounterUniversity Hospitals [facility] Center09-01-2023 Miscellaneous Notes* Telephone Encounter - [...] Lazo LPN documented in this encounterUniversity Hospitals Port[facility] Center09-01-2023 Miscellaneous Notes* Telephone Encounter - Jenni Zaman - 07/05/2023 8:25 AM EDT Patient has been identified by name and date of : Yes, Provider [facility] Pharmacy phones for refill(s): Requested Prescriptions [...] Thank you. Jenni Zaman documented in this encounterUniversity Hospitals Portage Medical Center08-16-2023 History of Present illness Narrative* [...] mouth every 8 hours as needed. Ipratropium Wynne (ATROVENT) 21 mcg (0.03 %) nasal spray [...] 1 Each by INTRAUTERINE route as directed. Natoma-3 Fatty Acids (FISH OIL) 500 mg cap Take 1 capsule by mouth once daily. Lancets lancets Test blood sugar(s) 1 times daily. Dx: Type 2 DM - Controlled E11.9 Insulin: No Sxvqsxbl-Qy-Keo-Fe-FA tab Take 1 tablet by mouth once [...] Age of Onset Alcohol/Drug Mother Heart Father [place] Cancer Father PANCREATIC CANCER Diabetes Father Coronary [...] If pain persists, could consider spur resection MRAK Stein DPM Podiatry [address] [facility] [address] Dept: [phone] Dept * Keri Parker RN - 06/19/2023 [...] foot pain documented in this encounterUniversity Hospitals Portage Medical Center08-16-2023 Instructions* Patient Instructions* Umesh Delgado [...] time on their feet, such as nurses, technical implementation lead/waiters, andmail carriers, often experience plantar fasciitis. Athletes [...] choose the one that fits the best. Parole with your athletic shoes to find a [...] Can purchase at [employer] here in [place], [employer] in [place] or [place]. Also can find in [place] in [facility]. Power[employer] can also be purchased online, starting [...] well together documented in this encounterUniversity Hospitals [facility] Center08-04-2023 History of Present illness Narrative* Ivette Price [...] migraine, would like to go back to [place], noted that I do botox in this location and patient would like to transfer. EEG completed 04/02/23 at [facility] and per report, normal. Pt reports [...] 2 weeks ago - was working at [employer] and tubs of butter fell and hit her on the right side of the head. Pt states hurt the next day but then felt better. Did not seek medical attention. But then states went to [facility] ER where they did a CT [...] mouth every 8 hours as needed. Ipratropium Wynne (ATROVENT) 21 mcg (0.03 %) nasal spray [...] 2 DM - Controlled E11.9 Insulin: No Fnfbjtri-Hf-Lwa-Fe-FA tab Take 1 tablet by mouth once daily. FLUoxetine (PROZAC) 20 mg capsule Take 1 capsule by mouth once daily. Natoma-3 Fatty Acids (FISH OIL) 500 mg cap [...] Age of Onset Alcohol/Drug Mother Heart Father AK Cancer Father PANCREATIC CANCER Diabetes Father Coronary [...] time. Follow up after evaluation by neuro [facility]. Ivette Price MD I spent a total of 42 minutes on the date of the service which included preparing to see the patient, fvaq-io-xgup patient care, completing clinical documentation, obtaining and/or [...] PCP/referring physician. documented in this encounterUniversity Hospitals Port[facility] Center08-03-2023 History of Present illness Narrative* [...] eps and given ok to continue. Seeing [place] cardiology. Feeling well overall MEDICATIONS: Current Outpatient Medications Medication Sig tiZANidine (ZANAFLEX) 4 mg tablet Take 1 tablet by mouth every 8 hours as needed. Ipratropium Wynne (ATROVENT) 21 mcg (0.03 %) nasal spray [...] 1 Each by INTRAUTERINE route as directed. Natoma-3 Fatty Acids (FISH OIL) 500 mg cap Take 1 capsule by mouth once daily. blood sugar diagnostic (BLOOD GLUCOSE TEST) test strip Test blood sugar(s) 1 times daily. Dx: Type 2 DM - Controlled E11.9 Insulin: Yes (Patient not taking: Reported on 05/28/2023) Lancets lancets Test blood sugar(s) 1 times daily. Dx: Type 2 DM - Controlled E11.9 Insulin: No Abkhfdym-Je-Hpk-Fe-FA tab Take 1 tablet by mouth once [...] Age of Onset Alcohol/Drug Mother Heart Father AK Cancer Father PANCREATIC CANCER Diabetes Father Coronary [...] six months documented in this encounterUniversity Hospitals [facility] Center07-26-2023 History of Present illness Narrative* Isiah Funes APRN.CNP - 05/29/2023 4:38 PM EDT Boot provided, see yesterdays addended noted. documented in this encounterUniversity Hospitals Port[facility] Center07-26-2023 Miscellaneous Notes* Telephone Encounter - [...] call Pt. documented in this encounterUniversity Hospitals Portage Medical Center07-17-2023 Discharge summary Author Sam Pearl [facility] May 20, 2023 10:36pm Note Date/Time May 20, 2023 10:3 6pm [facility] Medical Records Department [address] [place] [address] Emergency Department Summary 05/20/23 MR#: [id number] Acct: [id number] Name: TORI GRAY Rep #:[id number] : 1980 42 From: Sam Pearl MD PCP: Dr. Ivette Grimes MD Status:PRE E R Location: ED HPI History of Present Illness Chief Complaint: Head Injury Informant: patient Onset/Context/Timing Onset: Hours (1.5) Mechanism/Context: Blunt Injury Narrative Narrative: Patient states she was working at a [employer], it was almost closing time, she was [...] are now made worse since this injury. [facility] Medical History Abnormal ECG Acute bronchitis [...] #10 ea 04/26/20 [History Last Taken Unknown] hzwofktl-box-Em-FA 1 mg capsule 1 cap PO DAILY [...] Normal speech. Can name and remember objects. [place] Coma Scale: document GCS findings Spontaneous Obeys [...] restrictions temporarily. NEXUS Head CT Instrument from [facility] on 05/20/2023 All calculations should be rechecked [...] Age >=5 years ?> 0 = No Togolese CT Head Injury/Trauma Rule from [facility] on 05/20/2023 All calculations should be rechecked by clinician prior to use RESULT SUMMARY: CT Unnecessary The Togolese Head CT Rule suggests a head CT [...] consciousness Instructions: ED Concussion Prescriptions: No Action lkqblasp-fnv-Ru-FA 1 mg capsule 1 mg capsule 1 [...] your Primary Care Provider. Call [facility] ([phone]) or report to the closest Emergency Room. Call 911 if necessary. 05/20/232235 <Electronically signed by Sam Pearl MD> Cosign Signature (if applicable): CC: Dr. Ivette Grimes MD ~ Signed [facility] Work Phone: [phone] Instructions* Patient Instructions* Fatuma Beckford PA-C - [...] further instructions. documented in this encounterUniversity Hospitals Portage Medical Center07-14-2023 History of Present illness Narrative* [...] for migraine Informed Consent Consent Obtained: Written [place] Protocol A moment to CARE was completed [...] applicable Written Consent Obtained: Written LOT #: [id number] Expiration Date: Month: Year: 2024 Second vial: LOT #: [id number] Expiration Date: Month: Year: 2024 Injection Sites Left (Units) Left (Sites) Right (Units) Right (Sites) TOTAL (Units) Fruit Worker 5 1 5 1 10 Procerus [...] Beckford PA-C documented in this encounterUniversity Hospitals Portage Medical Center07-05-2023 Miscellaneous Notes* Telephone Encounter - [...] Yoon LPN documented in this encounterUniversity Hospitals Portage Medical Center06-02-2023 Miscellaneous Notes* Telephone Encounter - [...] Storey LPN documented in this encounterUniversity Hospitals Portage Medical Center05-17-2023 Miscellaneous Notes* Telephone Encounter - Nakia Caraballo RN - 03/20/2023 12:38 PM EDT Botox renewal sent to pharmacy. Will schedule at [place] once approved. Patient due 04/22/23. [facility] unchecked. Latonia Caraballo RN documented in this encounterUniversity Hospitals Portage Medical Center05-08-2023 Miscellaneous Notes* Telephone Encounter - Nakia Caraballo RN - 03/11/2023 11:01 AM EDT Patient is not due for botox until 04/22/23. Asked her which location she prefers so we can scheduleonce approved. Latnoia Caraballo RN documented in this encounterUniversity Hospitals Portage Medical Center05-02-2023 Instructions* Patient Instructions* Fatuma Beckford PA-C - 03/05/2023 1:02 PM EDT Continue regimen Reach out with any new symptoms or worsening weakness Reach out to Karen about moving botox Follow up with sleep provider in three months documented in this encounterUniversity Hospitals Portage Medical Center05-02-2023 History of Present illness Narrative* [...] Each by INTRAUTERINE route as directed. Ipratropium Wynne (ATROVENT) 0.03 % nasal spray Use 2 Sprays in the nose every 12 hours. Natoma-3 Fatty Acids (FISH OIL) 500 mg cap Take 1 capsule by mouth once daily. blood sugar diagnostic (BLOOD GLUCOSE TEST) test strip Test blood sugar(s) 1 times daily. Dx: Type 2 DM - Controlled E11.9 Insulin: Yes Lancets lancets Test blood sugar(s) 1 times daily. Dx: Type 2 DM - Controlled E11.9 Insulin: No Djvrvhrv-Xh-Acm-Fe-FA tab Take 1 tablet by mouth once daily. HISTORIES PAST MEDICAL HISTORY Diagnosis Date Acute cholecystitis Cholecystitis Anxiety 06/07/2014 Chronic back pain Kidney stones LETITIA treated with BiPAP Type 2 diabetes mellitus (HCC) FAMILY HISTORY Problem Relation Age of Onset Alcohol/Drug Mother Heart Father [place] Cancer Father PANCREATIC CANCER Diabetes Father Coronary [...] dysarthria; comprehension, naming, repetition intact. Short and director long term care memory intact. CN: PERRL, EOMI and without [...] migraine, would like to go back to [place], noted that I do botox in this [...] which included preparing to see the patient, cdzu-kp-pydw patient care, completing clinical documentation, obtaining and/or reviewing separately obtained history, performing a medically appropriate examination, counseling and educating the pat ient/family/caregiver, and ordering medications, tests, or procedures. This document has been created with the use of voice recognition technology. It may contain inaccuracies: (e.g. misspellings, inaccurate syntax or word sense) that have escaped review. 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 Please advise pt. Pharmacy is [facility]. Cary Goldsmith LPN documented in this encounterUniversity Hospitals Portage Medical Center04-28-2023 History of Present illness Narrative* Ivette Price [...] appointment. Ivette Price MD documented in this encounterUniversity Hospitals Portage Medical Center04-28-2023 Miscellaneous Notes* Telephone Encounter - Anni Sauceda Pss - 03/01/2023 9:54 AM EDT PCP requesting the patient have a follow-up with MIKE. Spoke with the patient and she wasn't able to take the time available. The patient is scheduled for a follow-up appointment with the PA. The patient is aware of the appointment. documented in this encounterUniversity Hospitals Portage Medical Center04-27-2023 History of Present illness Narrative* [...] Each by INTRAUTERINE route as directed. Ipratropium Wynne (ATROVENT) 0.03 % nasal spray Use 2 Sprays in the nose every 12 hours. metroNIDAZOLE (METROGEL) 0.75 % Topical Gel Apply to affected area twice daily. Natoma-3 Fatty Acids (FISH OIL) 500 mg cap Take 1 capsule by mouth once daily. blood sugar diagnostic (BLOOD GLUCOSE TEST) test strip Test blood sugar(s) 1 times daily. Dx: Type 2 DM - Controlled E11.9 Insulin: Yes Lancets lancets Test blood sugar(s) 1 times daily. Dx: Type 2 DM - Controlled E11.9 Insulin: No Mjtzaosl-Dz-Ups-Fe-FA tab Take 1 tablet by mouth once [...] Age of Onset Alcohol/Drug Mother Heart Father [place] Cancer Father PANCREATIC CANCER Diabetes Father Coronary [...] Grimes MD documented in this encounterUniversity Hospitals Portage Medical Center04-27-2023 History of Present illness Narrative* Little Perez, [...] 8:53 AM documented in this encounterUniversity Hospitals Portage Medical Center04-26-2023 Miscellaneous Notes* Telephone Encounter - [...] the provider could send her something to [facility] pharmacy just to take for tomorrow. Please call and advise. documented in this encounterUniversity Hospitals Portage Medical Center04-24-2023 Miscellaneous Notes* Telephone Encounter - [...] Swanson MA documented in this encounterUniversity Hospitals Portage Medical Center04-14-2023 History of Present illness Narrative* Grace Coronel APRN.LOOP TACKER - 02/15/2023 3:32 PM EDT Images from [...] visit. Either the patient or their legal congressional representative has been informed of the risks [...] has been seeing a counselor at the [facility]. Has been working with him every [...] which included preparing to see the patient, [id number]-xzcv patient care, completing clinical documentation, and counseling and educating the patient/family/caregiver, ordering medications/labs, and communicating with other healthcare providers. Grace Coronel APRN.GABRIELA February 15, 2023 3:32 PM This note was partially generated using Narrato voice recognition system. Note was reviewed for accuracy. There may be minor misspellings or grammar miscues with Narrato voice recognition. documented in this encounterUniversity Hospitals Portage Medical Center04-12-2023 Miscellaneous Notes* Telephone Encounter - Nirmala Storey LPN - 02/13/2023 5:54 PM EDT Bundle Buy message sent to patient. * Telephone Encounter [...] of US head/neck soft tissue received from [facility] via fax. Results scanned into Epic. (May takea few minutes before viewable in Epic.) Quinn Lazo LPN documented in this encounterUniversity Hospitals Portage Medical Center04-10-2023 Miscellaneous Notes* Telephone Encounter - Quinn Lazo LPN - 02/11/2023 1:15 PM EDT Patient phones requesting refills as follows: Requested Prescriptions Pending Prescriptions Disp Refills tiZANidine (ZANAFLEX) 4 mg tablet 20 tablet 0 Sig: Take 1 tablet by mouth every 8 hours as needed. APRIL 01/31/23 NOV 02/28/23 Please review and advise. Quinn Lazo LPN documented in this encounterUniversity Hospitals Portage Medical Center03-30-2023 Miscellaneous Notes* Telephone Encounter - Little Murphy Ma - 01/31/2023 10:31 AM EDT Faxed order to [facility] per patient's request * Telephone Encounter - Ivette Grimes MD - 01/31/2023 9:44 AM EDT While here patient has noted an intermittent lump in left neck. Slightly sore to touch. Comes andgoes. Is a nonspecific swelling on left posterior neck. Not sure is related to her fall. Will run throughregular us. Set up us at [facility]. Will run through regular insurance. documented in this encounterUniversity Hospitals Portage Medical Center03-30-2023 History of Present illness Narrative* [...] Each by INTRAUTERINE route as directed. Ipratropium Wynne (ATROVENT) 0.03 % nasal spray Use 2 Sprays in the nose every 12 hours. metroNIDAZOLE (METROGEL) 0.75 % Topical Gel Apply to affected area twice daily. Natoma-3 Fatty Acids (FISH OIL) 500 mg cap Take 1 capsule by mouth once daily. blood sugar diagnostic (BLOOD GLUCOSE TEST) test strip Test blood sugar(s) 1 times daily. Dx: Type 2 DM - Controlled E11.9 Insulin: Yes Lancets lancets Test blood sugar(s) 1 times daily. Dx: Type 2 DM - Controlled E11.9 Insulin: No Rgahoilw-Jb-Doy-Fe-FA tab Take 1 tablet by mouth once [...] Age of Onset Alcohol/Drug Mother Heart Father AK Cancer Father PANCREATIC CANCER Diabetes Father Coronary [...] Grimes MD documented in this encounterUniversity Hospitals Portage Medical Center03-23-2023 NoteHNO ID: [id number] Author: Gloria Oh MA Service: ? Author Type: Floor Molder Type: Progress Notes Filed: 01/24/2023 11:07 AM [...] ideas. The patient is not nervous/anxious.[facility]03-23-2023 History of Present illness Narrative* Gloria [...] not included. [facility] Name: Tori Gray : 1980 Purpose: Follow-up, discuss SPRINT Today's Date: 01/24/2023 Last Visit: 11/08/2022 ([facility]ED PRACTICE NURSE) Chief complaint: LEFT shoulder pain Tori Gray [...] was advised that they will need a jinrikisha driver for after the procedure and that if no jinrikisha driver is available and on site at the time of the procedure, the procedure will be cancelled. For any anticoagulants, the patient was advised on whether to continue or hold for this procedure. The patient expressed understanding and gave verbal consent to proceed. Medications: Refill: Continue Gabapentin as directed (PCP manages) Functional Adventism: Continue PT and TENs unit for pain [...] [facility] documented in this encounterUniversity Hospitals Portage Medical Center03-21-2023 Instructions* Patient Instructions* Jenni Ledesma [...] 5 days. documented in this encounterUniversity Hospitals Portage Medical Center03-21-2023 History of Present illness Narrative* [...] for migraine Informed Consent Consent Obtained: Written [place] Protocol A moment to CARE was completed [...] applicable Written Consent Obtained: Written LOT #: [id number] Expiration Date: Month: 3 Year: 2024 Second vial: LOT #: [id number] Expiration Date: Month: 3 Year: 2024 Injection Sites Left (Units) Left (Sites) Right (Units) Right (Sites) TOTAL (Units) Fruit Worker 5 1 5 1 10 Procerus [...] Amitriptyline Propranolol Topiramate/ Trokendi XL Jenni Ledesma APRN.LOOP TACKER Attestation: I have reviewed the clinical details [...] Bansal APRN.GABRIELA documented in this encounterUniversity Hospitals Portage Medical Center03-16-2023 History of Past illness Narrative* [...] encounter (statuses as of 12/10/2023) [facility]03-16-2023 History of Past illness Narrative* [...] encounter (statuses as of 12/10/2023) [facility]03-16-2023 History of Past illness Narrative* [...] encounter (statuses as of 12/26/2023) [facility]03-16-2023 History of Past illness Narrative* [...] encounter (statuses as of 01/02/2024) [facility]03-16-2023 History of Past illness Narrative* [...] encounter (statuses as of 01/15/2024) [facility]03-16-2023 History of Past illness Narrative* [...] encounter (statuses as of 01/23/2024) [facility]03-16-2023 History of Present illness Narrative* [...] to return to her second job at [employer] for one night and 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 She feels like the back of her neck feels off. No cough or congestion. No sore throat or fever. Had a cold last week. Now better. MRI still not approved. She spoke with [employer] who states a C9 needs completed specifically [...] Each by INTRAUTERINE route as directed. Ipratropium Wynne (ATROVENT) 0.03 % nasal spray Use 2 Sprays in the nose every 12 hours. Natoma-3 Fatty Acids (FISH OIL) 500 mg cap Take 1 capsule by mouth once daily. blood sugar diagnostic (BLOOD GLUCOSE TEST) test strip Test blood sugar(s) 1 times daily. Dx: Type 2 DM - Controlled E11.9 Insulin: Yes Lancets lancets Test blood sugar(s) 1 times daily. Dx: Type 2 DM - Controlled E11.9 Insulin: No Akjyvmcw-Ey-Ywx-Fe-FA tab Take 1 tablet by mouth once [...] Age of Onset Alcohol/Drug Mother Heart Father AK Cancer Father PANCREATIC CANCER Diabetes Father Coronary [...] Grimes MD documented in this encounterUniversity Hospitals Portage Medical Center03-14-2023 NoteHNO ID: [id number] Author: Elle Rasheed MD Service: ? Author Type: Physician Type: Progress Notes Filed: 01/24/2023 11:07 AM Note Text: [facility] Name: Tori Gray : 1980 Purpose: Follow-up, discuss SPRINT Today's Date: 01/24/2023 Last Visit: 11/08/2022 ([facility]ED PRACTICE NURSE) Chief complaint: LEFT shoulder pain Tori Gray [...] Normal Scapulothoracic (more content not included)...[facility]03-10-2023 Miscellaneous Notes* Telephone Encounter - Nirmala Storey LPN - 01/11/2023 4:42 PM EST Request is closed. An override is in effect until 01/09/24. * Telephone Encounter - Mirna Santos Ma - 01/08/2023 4:55 PM EST PA was submitted through rx benefits Mirna Santos Ma documented in this encounterUniversity Hospitals Portage Medical Center03-09-2023 Miscellaneous Notes* Telephone Encounter - [...] Storey LPN documented in this encounterUniversity Hospitals Portage Medical Center03-03-2023 History of Present illness Narrative* [...] Each by INTRAUTERINE route as directed. Ipratropium Wynne (ATROVENT) 0.03 % nasal spray Use 2 Sprays in the nose every 12 hours. metroNIDAZOLE (METROGEL) 0.75 % Topical Gel Apply to affected area twice daily. Natoma-3 Fatty Acids (FISH OIL) 500 mg cap Take 1 capsule by mouth once daily. blood sugar diagnostic (BLOOD GLUCOSE TEST) test strip Test blood sugar(s) 1 times daily. Dx: Type 2 DM - Controlled E11.9 Insulin: Yes Lancets lancets Test blood sugar(s) 1 times daily. Dx: Type 2 DM - Controlled E11.9 Insulin: No Kkldhevg-Db-Mtl-Fe-FA tab Take 1 tablet by mouth once [...] Age of Onset Alcohol/Drug Mother Heart Father AK Cancer Father PANCREATIC CANCER Diabetes Father Coronary [...] Grimes MD documented in this encounterUniversity Hospitals Portage Medical Center02-28-2023 Miscellaneous Notes* Telephone Encounter - Little Murphy Ma - 01/01/2023 3:02 PM EST Patient never checked in for her appointments as workers comp. Sent visits to [facility] to have C9 created and [...] Leone LPN documented in this encounterUniversity Hospitals Portage Medical Center02-23-2023 Miscellaneous Notes* Telephone Encounter - Anni Sauceda Pss - 12/27/2022 2:22 PM EST Received the [facility] C9 form. The patient was seen on 12/07/2022. The appointment was attached to the patient's insurance not a WC claim. Spoke with the patient and was given the information. PCP Dr. Grimes is the physican of records per the patient. Claim# [id number] Date of injury: 11/24/2022 Nolberto Walden RN [phone] Case management: Cristina # [phone] Left Cristina a message to fax information and to call the office. Requested WC report and DX allowed * Telephone Encounter - Jovana Blackwell MA - 12/26/2022 2:12 PM EST Spoke to [employer]. Will send OV note to complete authorization of MRI order/payment of visit to [phone]. [employer] is sending c9 form for provider to complete. Gave form to Anni Sauceda per Dr. Price's instructions. Jovana Blackwell MA * Telephone Encounter - Jovana Blackwell MA - 12/25/2022 10:18 AM EST TC to [employer]. Unable to reach. Left detailed message on VM to return call to office & ask for atriage nurse. Please transfer to neurology back line at ext. [phone]. Jovana Blackwell MA * Telephone Encounter - Marilynn Frank LPN - 12/24/2022 3:28 PM EST Patient calling said her MRI's need to be prior authorized with [employer]. Person name is lawrence number is [phone] works 8 am to 430 pm and fax number is [phone]. Patient claim number is [id number]. documented in this encounterUniversity Hospitals Portage Medical Center02-22-2023 Miscellaneous Notes* Telephone Encounter - Quinn Lazo LPN - 12/26/2022 11:41 AM EST Patient phones requesting refills as follows: Requested Prescriptions Pending Prescriptions Disp Refills tiZANidine (ZANAFLEX) 4 mg tablet 20 tablet 0 Sig: Take 1 tablet by mouth every 8 hours as needed. APRIL 12/26/22 NOV 01/04/23 Please review and advise. Quinn Lazo LPN documented in this encounterUniversity Hospitals Portage Medical Center02-22-2023 History of Present illness Narrative* [...] Each by INTRAUTERINE route as directed. Ipratropium Wynne (ATROVENT) 0.03 % nasal spray Use 2 [...] 2 DM - Controlled E11.9 Insulin: No Odzjkvvr-Qg-Zfu-Fe-FA tab Take 1 tablet by mouth once daily. Natoma-3 Fatty Acids (FISH OIL) 500 mg cap [...] mirena LAPAROSCOPY SURG CHOLECYSTECTOMY 2006 Cholecystectomy, lap (Eldon, Rowena) PAST SURGICAL HISTORY OF 2019 stent into kidney REMOVE IUD 07/13/2010 FAMILY HISTORY Problem Relation Age of Onset Alcohol/Drug Mother Heart Father AK Cancer Father PANCREATIC CANCER Diabetes Father Coronary [...] until 01/07. 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 Recheck in one week. 2. Essential (primary) hypertension - ICD9: 401.9, ICD10: I10 - good control - Continue current medication(s) - Goal of BP <130/80 Ivette Grimes MD documented in this encounterUniversity Hospitals Portage Medical Center02-20-2023 Miscellaneous Notes* Telephone Encounter - Nakia Caraballo RN - 12/24/2022 5:22 PM EST Last OV: 07/19/22 Last Refill: 08/03/22 FU OV: 01/22/23 Appropriate for refill routed to for review Latonia Caraballo RN documented in this encounterUniversity Hospitals Portage Medical Center02-10-2023 History of Present illness Narrative* [...] waiting to schedule those. Conflicts over at [facility] with workers comp. Injury that prompted [...] Each by INTRAUTERINE route as directed. Ipratropium Wynne (ATROVENT) 0.03 % nasal spray Use 2 Sprays in the nose every 12 hours. metroNIDAZOLE (METROGEL) 0.75 % Topical Gel Apply to affected area twice daily. Natoma-3 Fatty Acids (FISH OIL) 500 mg cap [...] 2 DM - Controlled E11.9 Insulin: No Uktnpzpf-Di-Duy-Fe-FA tab Take 1 tablet by mouth once [...] Age of Onset Alcohol/Drug Mother Heart Father AK Cancer Father PANCREATIC CANCER Diabetes Father Coronary [...] two weeks. documented in this encounterUniversity Hospitals Portage Medical Center02-07-2023 Miscellaneous Notes* Telephone Encounter - Ingrid Salmon Ma - 12/11/2022 9:55 AM EST Last office visit: 12/07/22 F/u scheduled: 12/14/22 Ingrid Salmon Ma documented in this encounterUniversity Hospitals Portage Medical Center02-03-2023 History of Present illness Narrative* [...] previous records. documented in this encounterUniversity Hospitals Portage Medical Center02-03-2023 History of Present illness Narrative* Ivette Price [...] BP. Check CMP and CBC due to detention med use. 3. LETITIA (obstructive sleep apnea) [...] when sleepy. Advised pt to avoid ozone title specialist. Patient now referred for NEW complaint of head trauma. ER notes and PCP notes reviewed. Per PCP note of 11/27/22: Patient presents today for office visit for ER F/U from [facility] 11/24/22. Head injury after fall. Cleaning [...] Appears pt had CT brain x2 at [facility] that were both unremarkable. Pt also previously referred to headache center to perform botox -- scheduled to get injections by January 2023. Note records show that pt has seen cards (EP) for QT prolongation concerns. Pt states on 11/24/22 was working at [facility] was doing a discharge, when bedside [...] Each by INTRAUTERINE route as directed. Ipratropium Wynne (ATROVENT) 0.03 % nasal spray Use 2 Sprays in the nose every 12 hours. blood sugar diagnostic (BLOOD GLUCOSE TEST) test strip Test blood sugar(s) 1 times daily. Dx: Type 2 DM - Controlled E11.9 Insulin: Yes Lancets lancets Test blood sugar(s) 1 times daily. Dx: Type 2 DM - Controlled E11.9 Insulin: No Gewkojzt-Yv-Phy-Fe-FA tab Take 1 tablet by mouth once daily. metroNIDAZOLE (METROGEL) 0.75 % Topical Gel Apply to affected area twice daily. (Patient not taking: Reported on 12/07/2022) Natoma-3 Fatty Acids (FISH OIL) 500 mg cap Take 1 capsule by mouth once daily. (Patient taking differently: Take 1 tablet by mouth once daily. 1200 mg) HISTORIES PAST MEDICAL HISTORY Diagnosis Date Acute cholecystitis Cholecystitis Anxiety 06/07/2014 Chronic back pain Kidney stones LETITIA treated with BiPAP Type 2 diabetes mellitus (HCC) FAMILY HISTORY Problem Relation Age of Onset Alcohol/Drug Mother Heart Father AK Cancer Father PANCREATIC CANCER Diabetes Father Coronary [...] which included preparing to see the patient, yfdz-ve-qpov patient care, completing clinical documentation, obtaining and/or reviewing separately obtained history, performing a medically appropriate examination, counseling and educating the pat ient/family/caregiver, ordering medications, tests, or procedures, and communicating results to thepatient/family/caregiver. documented in this encounterUniversity Hospitals Portage Medical Center01-31-2023 Miscellaneous Notes* Telephone Encounter - Marilynn Frank LPN - 12/04/2022 9:52 AM EST [place] from [facility] calling asking for copy of 11/27/2022 office visit notes and copy of letter off work to be faxed to [phone] with claim number [id number]. Printed and faxed as requested. documented in this encounterUniversity Hospitals Portage Medical Center01-30-2023 Miscellaneous Notes* Telephone Encounter - [...] Velasquez RN documented in this encounterUniversity Hospitals Portage Medical Center01-27-2023 History of Present illness Narrative* [...] Each by INTRAUTERINE route as directed. Ipratropium Wynne (ATROVENT) 0.03 % nasal spray Use 2 Sprays in the nose every 12 hours. metroNIDAZOLE (METROGEL) 0.75 % Topical Gel Apply to affected area twice daily. Natoma-3 Fatty Acids (FISH OIL) 500 mg cap [...] 2 DM - Controlled E11.9 Insulin: No Lupjekog-Ko-Vhg-Fe-FA tab Take 1 tablet by mouth once [...] Age of Onset Alcohol/Drug Mother Heart Father AK Cancer Father PANCREATIC CANCER Diabetes Father Coronary [...] Ivette Grimes documented in this encounterUniversity Hospitals Portage Medical Center01-26-2023 Miscellaneous Notes* Telephone Encounter - Elle Rasheed [...] her appointment for 12/05/22 with you in [place] as she is not sure if this will effect her. Please advise. Darrion Shha documented in this encounterUniversity Hospitals Portage Medical Center01-24-[address] Callejas [facility] November 27, 2022 6:34pm Note Date/Time November 27, 2022 3 :56pm [facility] Medical Records Department [address] [place] [address] Emergency Department Summary 11/27/22 MR#: [id number] Acct: [id number] Name: TORI GRAY Rep #:[id number] : 1980 42 From: Tod Callejas MD [...] other symptoms consistent with a viral illness. [facility] Medical History Acute bronchitis Acute cholecystitis [...] #10 ea 04/26/20 [History Last Taken Unknown] tftjxeez-neb-Qf-FA 1 mg capsule 1 cap PO DAILY [...] concussion Instructions: ED Concussion Prescriptions: No Action rumeklxt-cea-Hi-FA 1 mg capsule 1 mg capsule 1 [...] your Primary Care Provider. Call [facility] ([phone]) or report to the closest Emergency Room. Call 911 if necessary. 11/27/22 9480 <Electronically signed by Tod Callejas MD> Cosigner Signature (if applicable): CC: Dr. Ivette Grimes MD ~ Signed [facility] Work Phone: 1(263) 478-180501-24-2023 History of Present illness Narrative* Ivette Grimes MD - 11/27/2022 1:48 PM EST Patient presents with: ER F/U HPI: Patient presents today for office visit for ER F/U from [facility] 11/24/22. Head injury after fall. Cleaning [...] Each by INTRAUTERINE route as directed. Ipratropium Wynne (ATROVENT) 0.03 % nasal spray Use 2 Sprays in the nose every 12 hours. metroNIDAZOLE (METROGEL) 0.75 % Topical Gel Apply to affected area twice daily. Natoma-3 Fatty Acids (FISH OIL) 500 mg cap [...] 2 DM - Controlled E11.9 Insulin: No Iwpuagvf-Rk-Zut-Fe-FA tab Take 1 tablet by mouth once [...] Age of Onset Alcohol/Drug Mother Heart Father AK Cancer Father PANCREATIC CANCER Diabetes Father Coronary [...] Grimes MD documented in this encounterUniversity Hospitals Portage Medical Center01-20-2023 Miscellaneous Notes* Telephone Encounter - [...] Lazo LPN documented in this encounterUniversity Hospitals Portage Medical Center01-12-2023 Miscellaneous Notes* Telephone Encounter - [...] Harrell LPN documented in this encounterUniversity Hospitals Portage Medical Center01-05-2023 NoteHNO ID: [id number] Author: Adelina Marinelli APRN.LOOP TACKER Service: ? Author Type: Nurse Practitioner Type: Progress Notes Filed: 11/08/2022 1:55 PM Note Text: [facility] Today's Date: 11/08/2022 Last Visit: 07/19/22 [...] activity was identified. 11/08/2022 by Adelina Marinelli APRN.LOOP TACKER Allergies: ALLERGIES Allergen Reactions Lidocaine Hives Steroids [...] encounter deepali (more content not included)...[facility] 11-08-2022 NoteHNO ID: [id number] Author: Gloria Oh MA Service: ? Author Type: Floor Molder Type: Progress Notes Filed: 11/08/2022 1:55 PM [...] ideas. The patient is not nervous/anxious.[facility]01-05-2023 Miscellaneous Notes* Telephone Encounter - Vito [...] No 9. Does this procedure require a jinrikisha driver? Yes If yes, has patient been notified that a jinrikisha driver is needed and must be present [...] Vito Mancera documented in this encounterUniversity Hospitals Portage Medical Center01-05-2023 Instructions* Patient Instructions* Adelina Marinelli APRN.CNP - 11/08/2022 1:54 PM EST Activity as tolerated Use Ice and/or heat as tolerated as needed documented in this encounterUniversity Hospitals Portage Medical Center01-05-2023 History of Present illness Narrative* Adelina Marinelli APRN.CNP - 11/08/2022 1:30 PM EST Images from the original note were not included. [facility] Today's Date: 11/08/2022 Last Visit: 07/19/22 [...] suspiciousactivity was identified. 11/08/2022 by Adelina Marinelli APRN.LOOP TACKER Allergies: ALLERGIES Allergen Reactions Lidocaine Hives Steroids [...] Continue Gabapentin as directed (PCP manages) Functional Adventism: Continue PT and TENs unit for pain [...] decision making from today's date. Adelina Marinelli APRN.LOOP TACKER Pain Management [facility] * Gloria Oh MA - 11/08/2022 [...] not nervous/anxious. documented in this encounterUniversity Hospitals Portage Medical Center12-09-2022 Instructions* Patient Instructions* Grace Coronel [...] - Call the National Suicide Hotline at 1-745-GGDDRPZ ( ) or 2-454-101-TALK (8475) - Text 6MHLT to 001426 Medication Update: - Prozac 10 mg - take 1 capsule once daily for 7 days; then take 2 capsules once daily after that. Next appointment: --Schedule in 4 to 6 weeks or sooner if needed -- You may call the department appointment line at [phone] to schedule your appointment. -- Please call my nurse Coretta at [phone] or send me a message in wavecatch with any questions or concerns between appointments. documented in this encounterUniversity Hospitals Portage Medical Center12-09-2022 History of Present illness Narrative* [...] her. They get along well. 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 REFERRAL SOURCE: PCP - [...] report that daughter has support from her roller coaster operator and therapist and has been doing [...] current PAP mask.) 1 Device 99 Ipratropium Wynne (ATROVENT) 0.03 % nasal spray Use 2 Sprays in the nose every 12 hours. 1 Bottle2 metroNIDAZOLE (METROGEL) 0.75 % Topical Gel Apply to affected area twice daily. 45 g 2 Natoma-3 Fatty Acids (FISH OIL) 500 mg cap Take 1 capsule by mouth once daily. 30 capsule 11 blood sugar diagnostic (BLOOD GLUCOSE TEST) test strip Test blood sugar(s) 1 times daily. Dx: Type 2 DM - Controlled E11.9 Insulin: Yes 50 Strip 11 Lancets lancets Test blood sugar(s) 1 times daily. Dx: Type 2 DM - Controlled E11.9 Insulin: No 100Each 11 Tmriutup-Nw-Pux-Fe-FA tab Take 1 tablet by mouth once daily. 0 No current facility-administered medications for this visit. VITAL SIGNS: There were no vitals filed for this visit. ROS: All other systems negative. PSYCHIATRIC HISTORY: Prior Diagnosis: Generalized Anxiety Disorder, and Depression Prior Provider: No prior psychiatrist Therapist: Previously followed at the counseling center. Stopped during the pandemic. Current Grab Driver: No Last Hospitalization: Denies hospitalization. ECT: No Previous Discontinued Psychiatric Med Trials: Ativan as needed PRN. Paxil, Buspar (low dose), Wellbutrin SUBSTANCE USE HISTORY: Nicotine: None Caffeine: Mert, 1/day Alcohol: No history of use or dependence Marijuana: No history of use or dependence Cocaine: No history of use or dependence Opiods: No history of use or dependence SPIRITUALITY: Alevism [facility]: Tori Gray is the oldest of 2 siblings. Her brother lives in [place]. The patient was born in [place] and raised in [place], [place]. She completed Associates degree in psychology. [...] which included preparing to see the patient, [id number] patient care, completing clinical documentation, obtaining and/or [...] PAGER : documented in this encounterUniversity Hospitals Portage Medical Center12-06-2022 Miscellaneous Notes* Telephone Encounter - Mariaa Ambrosio, [place] - 10/09/2022 8:44 AM EST Patient has been identified by name and date of : Yes Patient phones for refill(s): Requested Prescriptions Pending Prescriptions Disp Refills topiramate (TOPAMAX) 100 mg tablet 60 tablet 2 Sig: Take 1 tablet by mouth twice daily. Date of last office visit in primary care: [facility] 07/19/2022 with Karen Bansal APRN.CNP No appointment scheduled [facility] Notes: Plan: All options for treatment [...] LEVAR Jasmine documented in this encounterUniversity Hospitals Portage Medical Center12-02-2022 Miscellaneous Notes* Telephone Encounter - Quinn Lazo LPN - 10/05/2022 8:41 AM EST Patient phones requesting refills as follows: Requested Prescriptions Pending Prescriptions Disp Refills tiZANidine (ZANAFLEX) 4 mg tablet 20 tablet 0 Sig: Take 1 tablet by mouth every 8 hours as needed. APRIL 09/04/22 NOV 11/01/22 Please review and advise. Quinn Lazo LPN documented in this encounterUniversity Hospitals Portage Medical Center11-29-2022 Miscellaneous Notes* Telephone Encounter - [...] can do? Adriana Licona documented in this [facility]11-16-2022 Miscellaneous Notes* Telephone Encounter - Lubna Yoon [...] Yoon LPN documented in this encounterUniversity Hospitals Portage Medical Center11-09-2022 History of Present illness Narrative* [place] Tesfaye - 09/12/2022 1:57 PM EST BEHAVIORAL HEALTH SOCIAL WORK QUICK NOTE Provider Action/FYI Needs appointment scheduled with Grace Coronel CNP. Will forward chart to Grace and her GROUP EXERCISE INSTRUCTOR to assist with scheduling. Patient identified for [facility] from: PCP Reason for referral: [facility] Behavioral Health Resources: Psychiatry med management;Psychology - talk therapy [facility] encounter type: Chart Review Attempts to Outreach: 1 attempt Referral made: Psychiatry - Internal;Psychology - External;Psychology - Internal Psychiatry-Internal referral type: Medication Management Psychology-Internal referral type: Therapy Psychology-External referral type: Therapy Reason for external referral: Wait times at [facility] too long Final Disposition: Resources given Patient Discharged?: Yes Patient reported that caregiver was able to meet their needs today?: N/A Pt identified by name and . Patient interested in [facility] at [facility], specifically Grace Coronel CNP at therequest of pt's PCP. SW will route chart to Grace and her nurse, Coretta Spain who can assist with patient scheduling. Patient states she's on a wait list for counseling at agencies near her home. No needs further from this SW at this time. [place] Tesfaye, ACM-PARK documented in this encounterUniversity Hospitals Portage Medical Center11-09-2022 Miscellaneous Notes* Addendum Note - Ivette Grimes MD - 09/12/2022 1:19 PM ESTAddended by: IVETTE GRIMES on: 09/12/2022 01:19 PM Modules accepted: Orders * Telephone Encounter - Ivette Grimes MD - 09/12/2022 1:18 PM EST Needs set up with Grace documented in this encounterUniversity Hospitals Portage Medical Center11-03-2022 Miscellaneous Notes* Telephone Encounter - Nakia Caraballo RN - 09/06/2022 12:44 PM EDT Patient is scheduled for botox on 09/13/22 at 1:30 pm with Kaylen. Latonia Caraballo RN documented in this encounterUniversity Hospitals Portage Medical Center11-01-2022 Miscellaneous Notes* Telephone Encounter - Jovana Blackwell MA - 09/04/2022 3:01 PM EDT Clarified with patient [facility] will be receiving 2 new providers able to administer injections. Patient will continue with plan to stay within [facility] for injections & just follow up in [place] when neuro providers are available to schedule. Jovana Blackwell MA documented in this encounterUniversity Hospitals Portage Medical Center11-01-2022 History of Past illness Narrative* [...] encounter (statuses as of 09/04/2022) [facility] History of Past illness Narrative* [...] encounter (statuses as of 09/04/2022) [facility] History of Past illness Narrative* [...] encounter (statuses as of 09/06/2022) [facility] History of Past illness Narrative* [...] encounter (statuses as of 09/07/2022) [facility] History of Past illness Narrative* [...] encounter (statuses as of 09/12/2022) [facility] History of Past illness Narrative* [...] encounter (statuses as of 09/12/2022) [facility] History of Past illness Narrative* [...] encounter (statuses as of 09/12/2022) [facility]11-01-[facility] History of Past illness Narrative* [...] encounter (statuses as of 09/19/2022) [facility] History of Past illness Narrative* [...] encounter (statuses as of 10/02/2022) [facility] History of Past illness Narrative* [...] encounter (statuses as of 10/05/2022) [facility] History of Past illness Narrative* [...] encounter (statuses as of 10/09/2022) [facility] History of Past illness Narrative* [...] encounter (statuses as of 10/18/2022) [facility] History of Past illness Narrative* [...] encounter (statuses as of 10/21/2022) [facility] History of Past illness Narrative* [...] encounter (statuses as of 11/09/2022) [facility] History of Past illness Narrative* [...] encounter (statuses as of 11/15/2022) [facility] History of Past illness Narrative* [...] encounter (statuses as of 11/21/2022) [facility] History of Past illness Narrative* [...] encounter (statuses as of 11/23/2022) [facility] History of Past illness Narrative* [...] encounter (statuses as of 11/27/2022) [facility] History of Past illness Narrative* [...] encounter (statuses as of 11/29/2022) [facility] History of Past illness Narrative* [...] encounter (statuses as of 11/30/2022) [facility] History of Past illness Narrative* [...] encounter (statuses as of 12/04/2022) [facility] History of Past illness Narrative* [...] encounter (statuses as of 12/08/2022) [facility] of Past illness Narrative* [...] encounter (statuses as of 12/08/2022) [facility] of Past illness Narrative* [...] encounter (statuses as of 12/11/2022) [facility] of Past illness Narrative* [...] encounter (statuses as of 12/11/2022) [facility] History of Past illness Narrative* [...] encounter (statuses as of 12/14/2022) [facility] of Past illness Narrative* [...] encounter (statuses as of 12/21/2022) [facility] of Past illness Narrative* [...] encounter (statuses as of 12/25/2022) [facility] of Past illness Narrative* [...] encounter (statuses as of 12/26/2022) [facility] of Past illness Narrative* [...] encounter (statuses as of 12/26/2022) [facility] of Past illness Narrative* [...] encounter (statuses as of 01/04/2023) [facility] of Past illness Narrative* [...] encounter (statuses as of 01/07/2023) [facility] of Past illness Narrative* [...] encounter (statuses as of 01/10/2023) [facility] of Past illness Narrative* [...] encounter (statuses as of 01/11/2023) [facility] of Past illness Narrative* [...] encounter (statuses as of 01/15/2023) [facility] of Past illness Narrative* [...] encounter (statuses as of 01/17/2023) [facility] of Past illness Narrative* [...] encounter (statuses as of 01/22/2023) [facility] of Past illness Narrative* [...] encounter (statuses as of 01/24/2023) [facility] of Past illness Narrative* [...] encounter (statuses as of 01/31/2023) [facility] of Past illness Narrative* [...] encounter (statuses as of 01/31/2023) [facility] of Past illness Narrative* [...] encounter (statuses as of 02/11/2023) [facility] of Past illness Narrative* [...] encounter (statuses as of 02/14/2023) [facility] of Past illness Narrative* [...] encounter (statuses as of 02/16/2023) [facility] of Past illness Narrative* [...] encounter (statuses as of 02/25/2023) [facility] of Past illness Narrative* [...] encounter (statuses as of 02/27/2023) [facility] Past illness Narrative* [...] encounter (statuses as of 02/28/2023) [facility] illness Narrative* [...] encounter (statuses as of 03/01/2023) [facility] Past illness Narrative* [...] encounter (statuses as of 03/01/2023) [facility] Past illness Narrative* [...] encounter (statuses as of 03/04/2023) [facility] of Past illness Narrative* [...] encounter (statuses as of 03/05/2023) [facility] of Past illness Narrative* [...] encounter (statuses as of 03/05/2023) [facility] Past illness Narrative* [...] encounter (statuses as of 03/05/2023) [facility] of Past illness Narrative* [...] encounter (statuses as of 03/13/2023) [facility] of Past illness Narrative* [...] encounter (statuses as of 03/20/2023) [facility] of Past illness Narrative* [...] encounter (statuses as of 03/20/2023) [facility] of Past illness Narrative* [...] encounter (statuses as of 04/05/2023) [facility] of Past illness Narrative* [...] encounter (statuses as of 05/08/2023) [facility] of Past illness Narrative* [...] encounter (statuses as of 05/17/2023) [facility] of Past illness Narrative* [...] encounter (statuses as of 05/29/2023) [facility] of Past illness Narrative* [...] encounter (statuses as of 05/30/2023) [facility] of Past illness Narrative* [...] encounter (statuses as of 06/06/2023) [facility] Past illness Narrative* [...] encounter (statuses as of 06/08/2023) [facility] illness Narrative* [...] encounter (statuses as of 06/10/2023) [facility] illness Narrative* [...] encounter (statuses as of 06/22/2023) [facility] of Past illness Narrative* [...] encounter (statuses as of 07/05/2023) [facility] Past illness Narrative* [...] encounter (statuses as of 07/09/2023) [facility] Past illness Narrative* [...] encounter (statuses as of 08/23/2023) [facility] of Past illness Narrative* [...] encounter (statuses as of 08/26/2023) [facility] Past illness Narrative* [...] encounter (statuses as of 09/08/2023) [facility] of Past illness Narrative* [...] encounter (statuses as of 09/10/2023) [facility] Past illness Narrative* [...] encounter (statuses as of 09/25/2023) [facility] of Past illness Narrative* [...] encounter (statuses as of 10/14/2023) [facility] of Past illness Narrative* [...] encounter (statuses as of 10/15/2023) [facility] of Past illness Narrative* [...] encounter (statuses as of 10/16/2023) [facility] of Past illness Narrative* [...] encounter (statuses as of 12/06/2023) [facility]11-[facility]22 Instructions* Patient Instructions* Ivette Grimes MD - 09/04/2022 12:13 PM EDT Counseling and Psychiatry Services [facility] [address] [place], [place] [id number] *counseling [facility] [address] [facility] [address] *counseling [address] [id number] *counseling [facility] [place] [address] [place], [place] [address] *counseling and psychiatry [address] [address] *counseling [address] [address] *counseling [place] [address] [facility] [phone] *counseling [place] [address] [place] [address] *counseling [facility] [address] [place] [address] [facility] [address] [facility] [place] [address] *counseling [facility] [address] [place], [place] [id number] [facility] [address] [place], [place] [address] *counseling [facility] [address] [place] [address] [facility] [address] [place] [address] *counseling [facility] [address] [place] [address] *[facility]ing [facility] [address] [place] [address] *counseling and psychiatry [facility] [place] [employer] [address] [facility] [address] [place], [place] [id number] *psychiatry [facility] [phone] *grief counseling, individual and groups *If you ever experience a mental health crisis please call [phone], 911, Please verify with insurance provider for coverage Provide services on a sliding fee scale for [facility]. [facility] [place]thea dinh [place], [place] [address] *Counseling [facility] [place] [address] [place], [place] [id number] *Counseling, Psychiatry and Case Management [address] [address] *[facility]ing [place] [address] [place] [address] *Counseling [place] [address] [place], [place] [phone] *Counseling [place] [address] [place], [place] [address] *Counseling [facility] [address] [place], [place] [id number] *Counseling/mental health and substance use treatment [facility] [address] [place], [place] [address] [place] [address] [place], [place] [address] [facility] [address] [place] [address] *Addiction services, services for victims of domestic violence and sexual assault, housing services [facility] -safe, alcohol and drug free environment [facility] [phone] *free grief services, individual and group *If you ever experience a mental health crisis please contact [phone], 911 or go to the nearest ER. Please verify with insurance provider for coverage documented in this encounterUniversity Hospitals Portage Medical Center11-01-2022 History of Present illness Narrative* [...] for depression. Was seen by cardiology in [place] who referred her to EPS. Appt is [...] in bed with current PAP mask. Ipratropium Wynne (ATROVENT) 0.03 % nasal spray Use 2 Sprays in the nose every 12 hours. metroNIDAZOLE (METROGEL) 0.75 % Topical Gel Apply to affected area twice daily. Natoma-3 Fatty Acids (FISH OIL) 500 mg cap Take 1 capsule by mouth once daily. blood sugar diagnostic (BLOOD GLUCOSE TEST) test strip Test blood sugar(s) 1 times daily. Dx: Type 2 DM - Controlled E11.9 Insulin: Yes Lancets lancets Test blood sugar(s) 1 times daily. Dx: Type 2 DM - Controlled E11.9 Insulin: No Ymcxegio-Xj-Wbd-Fe-FA tab Take 1 tablet by mouth once [...] Age of Onset Alcohol/Drug Mother Heart Father [place] Cancer Father PANCREATIC CANCER Diabetes Father Diabetes [...] Grimes MD documented in this encounterUniversity Hospitals Portage Medical Center10-31-2022 History of Present illness Narrative* [...] in bed with current PAP mask. Ipratropium Wynne (ATROVENT) 0.03 % nasal spray Use 2 Sprays in the nose every 12 hours. metroNIDAZOLE (METROGEL) 0.75 % Topical Gel Apply to affected area twice daily. Natoma-3 Fatty Acids (FISH OIL) 500 mg cap Take 1 capsule by mouth once daily. blood sugar diagnostic (BLOOD GLUCOSE TEST) test strip Test blood sugar(s) 1 times daily. Dx: Type 2 DM - Controlled E11.9 Insulin: Yes Lancets lancets Test blood sugar(s) 1 times daily. Dx: Type 2 DM - Controlled E11.9 Insulin: No Hnwtysnv-Sf-Vyh-Fe-FA tab Take 1 tablet by mouth once [...] Age of Onset Alcohol/Drug Mother Heart Father [place] Cancer Father PANCREATIC CANCER Diabetes Father Diabetes [...] in person documented in this encounterUniversity Hospitals Portage Medical Center10-18-2022 Miscellaneous Notes* Telephone Encounter - Nakia Caraballo RN - 08/21/2022 1:02 PM EDT Botox approved 08/15/22-01/30/23. Patient made aware that we will get her scheduled. Latonia Caraballo RN documented in this encounterUniversity Hospitals Portage Medical Center10-05-2022 Miscellaneous Notes* Telephone Encounter - Adelina Marinelli APRN.LOOP TACKER - 08/08/2022 12:53 PM EDT Please advise patient insurance will not approve the RFA of her shoulder. Another option would be to repeat the LEFT scapular NB, but with steroids for a therapeutic effect. If she would like to proceed with this option please let me know and will place the order. Thank you, Adelina Marinelli APRN.LOOP TACKER documented in this encounterUniversity Hospitals Portage Medical Center10-05-2022 Miscellaneous Notes* Telephone Encounter - Brittney Huffman Pss - 08/08/2022 10:08 AM EDT Spoke with the patient she has not heard back from [place] [facility] will try them again if not able to reach them she will call [facility] back to schedule. documented in this encounterUniversity Hospitals Portage Medical Center09-30-2022 Miscellaneous Notes* Telephone Encounter - Karen Bansal APRN.LOOP TACKER - 08/03/2022 10:33 AM EDT Rizatriptan sent to pharmacy. Stop sumatriptan. * Telephone Encounter - Nakia Caraballo RN - 08/03/2022 9:03 AM EDT Patient reporting that sumatriptan is not helping migraines. Asking for another treatment. Botox referral was sent but still pending. Latonia Caraballo RN documented in this encounterUniversity Hospitals Portage Medical Center09-29-2022 History of Present illness Narrative* [...] her cpap. Needs new machine. Sees her order taker soon. . Will be seeing cardiology. Had [...] in bed with current PAP mask. Ipratropium Wynne (ATROVENT) 0.03 % nasal spray Use 2 Sprays in the nose every 12 hours. metroNIDAZOLE (METROGEL) 0.75 % Topical Gel Apply to affected area twice daily. Natoma-3 Fatty Acids (FISH OIL) 500 mg cap Take 1 capsule by mouth once daily. blood sugar diagnostic (BLOOD GLUCOSE TEST) test strip Test blood sugar(s) 1 times daily. Dx: Type 2 DM - Controlled E11.9 Insulin: Yes Lancets lancets Test blood sugar(s) 1 times daily. Dx: Type 2 DM - Controlled E11.9 Insulin: No Bqvcmshr-Db-Hxf-Fe-FA tab Take 1 tablet by mouth once [...] Age of Onset Alcohol/Drug Mother Heart Father [place] Cancer Father PANCREATIC CANCER Diabetes Father Diabetes [...] six months documented in this encounterUniversity Hospitals Portage Medical Center09-28-2022 Miscellaneous Notes* Telephone Encounter - Nakia Caraballo RN - 08/01/2022 1:21 PM EDT Botox referral sent to pharmacy. Latonia Caraballo RN documented in this encounterUniversity Hospitals Portage Medical Center09-19-2022 Miscellaneous Notes* Telephone Encounter - [...] refill: 07/2021 documented in this encounterUniversity Hospitals Portage Medical Center09-15-2022 Instructions* Patient Instructions* Gabi Cornelius APRN.LOOP TACKER - 07/19/2022 2:08 PM EDT Preventative: Topamax [...] Feverfew: Feverfew is a common garden herb [place] to [place] and popular in [facility] as a treatment for disorders typically controlled [...] leblanc Pods of broad jaquez (Bulgarian beans, Libyan pea pods, Gambian (antwan) beans, saldana and navy beans Ripe [...] too muchlight. These can be obtained at [employer] or [employer]: see list above. 2. Limit use of acute treatments (ynkh-ino-hcylmms medications, triptans, etc.) to no more than [...] and quiet environment. Relax and reduce stress. Ntprhfi3Acwrb is a free félix that can instruct you on some simple relaxtionand breathing techniques. Http://[employer] is a free website that provides teaching [...] ensuing treatment plans will be released via wavecatch and discussedduring your follow-up appointment. [employer] [place] [employer]: Please ask the schedulers to give you an activation code. The main way of communication isby [employer] [place] [employer] rather than phone lines, so if you have not signed up, please do so. wavecatch is also theway that you can review your labs and testing. We are not able to contact everyone to tell them results are normal. If you do not hear back from us regarding testing you have had, it should be considered normal or within normal range. If you have any questions about the results, you are free to message us. [employer] is meant for simple questions regarding medications, possible side effects, or other simplestraight forward questions in limited sentences, rather than multiple paragraphs of discussion. [employer] is not meant for, or efficient for [...] do not comment on most testing on [facility] in a message or commentary unless there is a concern. You will not receive a message from me of the result unless there is a specific concern of the result I need you to address further in care with us or your primary medical team. Make sure to check your my chart email or félix. documented in this encounterUniversity Hospitals Portage Medical Center09-15-2022 History of Present illness Narrative* Karen Bansal APRN.CNP - 07/19/2022 1:00 PM EDT Images from the original note were not included. [facility] General [facility]rology New Patient Headache [...] Description Onset: Early 30's. 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 Denies upon wakening. Total headache days per [...] Outside imaging reviewed Lab work obtained from [facility] and reviewed Blood studies 02/07/2022 Hemoglobin [...] Age of Onset Alcohol/Drug Mother Heart Father [place] Cancer Father PANCREATIC CANCER Diabetes Father Diabetes [...] in bed with current PAP mask. Ipratropium Wynne (ATROVENT) 0.03 % nasal spray Use 2 Sprays in the nose every 12 hours. metroNIDAZOLE (METROGEL) 0.75 % Topical Gel Apply to affected area twice daily. Natoma-3 Fatty Acids (FISH OIL) 500 mg cap Take 1 capsule by mouth once daily. blood sugar diagnostic (BLOOD GLUCOSE TEST) test strip Test blood sugar(s) 1 times daily. Dx: Type 2 DM - Controlled E11.9 Insulin: Yes Lancets lancets Test blood sugar(s) 1 times daily. Dx: Type 2 DM - Controlled E11.9 Insulin: No Soacepgt-Lb-Ons-Fe-FA tab Take 1 tablet by mouth once [...] Finger Abduction (U) 5 Finger Abduction 5 Tooth Inspector 5 Tooth Inspector 5 Right Lower Extremity: (of 5) Left [...] free days a month: 3 Gabi Cornelius APRN.[facility] My impression and recommendations were discussed [...] which included preparing to see the patient, [id number] patient care, completing clinical documentation, obtaining and/or [...] Bansal APRN.GABRIELA documented in this encounterUniversity Hospitals Portage Medical Center09-15-2022 NoteHNO ID: [id number] Author: Adelina Marinelli APRN.CNP Service: ? Author Type: Nurse Practitioner Type: Progress Notes Filed: 07/19/2022 10:17 AM Note Text: [facility] Today's Date: 07/19/2022 Last Visit: 05/24/22 [...] (A) 74 - 99 mg/dL Final Comment: Location:[facility], [address] [place] [address], [facility] The Accu-Chek Inform II glucose meter [...] activity was identified. 07/19/2022 by Adelina Marinelli APRN.LOOP TACKER Last Drug screen: Not Applicable Risk Assessment: [...] regional lymphad (more content not included)...[facility]09-15-2022 NoteHNO ID: [id number] Author: Tiana Cifuentes MA Service: ? Author Type: Floor Molder Type: Progress Notes Filed: 07/19/2022 10:17 AM [...] ideas. The patient is not nervous/anxious.[facility]09-15-2022 Miscellaneous Notes* Telephone Encounter - Pankaj [...] If yes, When and Where? [facility], currently attending (Medical Records Release needs [...] Pankaj Murillo documented in this encounterUniversity Hospitals Portage Medical Center09-06-2022 Miscellaneous Notes* Telephone Encounter - Ingrid Salmon Ma - 07/10/2022 1:55 PM EDT Last office visit: 05/01/22 F/u scheduled: 08/02/22 Ingrid Salmon Ma documented in this encounterUniversity Hospitals Portage Medical Center08-30-2022 Miscellaneous Notes* Telephone Encounter - [...] and PM. Note, lab work obtained from [facility] and reviewed. Given persistence of headaches [...] LEVAR Jasmine documented in this encounterUniversity Hospitals Portage Medical Center08-19-2022 Miscellaneous Notes* Telephone Encounter - [...] 20 tablets documented in this encounterUniversity Hospitals Portage Medical Center08-04-2022 Miscellaneous Notes* Telephone Encounter - LEVAR Jasmine - 06/07/2022 4:24 PM EDT Orders and APRIL Notes faxed to [facility] to service pts PAP due to compliance reports and data no longerbeing able to be pulled from device. LEVAR Jasmine documented in this encounterUniversity Hospitals Portage Medical Center08-04-2022 History of Present illness Narrative* Tara Gillette APRN.LOOP TACKER - 06/07/2022 3:30 PM EDT Images from the original note were not included. [facility] [place] Follow-up Visit Follow-up note June 07, 2022 [...] BP. Check CMP and CBC due to detention med use. 3. LETITIA (obstructive sleep apnea) [...] when sleepy. Advised pt to avoid ozone title specialist. Usually getting about 7 hours of sleep. [...] in bed with current PAP mask. Ipratropium Wynne (ATROVENT) 0.03 % nasal spray Use 2 Sprays in the nose every 12 hours. metroNIDAZOLE (METROGEL) 0.75 % Topical Gel Apply to affected area twice daily. Natoma-3 Fatty Acids (FISH OIL) 500 mg cap Take 1 capsule by mouth once daily. blood sugar diagnostic (BLOOD GLUCOSE TEST) test strip Test blood sugar(s) 1 times daily. Dx: Type 2 DM - Controlled E11.9 Insulin: Yes Lancets lancets Test blood sugar(s) 1 times daily. Dx: Type 2 DM - Controlled E11.9 Insulin: No Lgudsuxw-To-Pyt-Fe-FA ( FORMULA) ORAL Tab Take 1 tablet [...] and pattern. Labs/studies: Outside labs reviewed from [facility] collected on 06/05/22: CBC N UA [...] and PM. Note, lab work obtained from [facility] and reviewed. Given persistence of headaches [...] 06/07/22 CONSULT TO [facility] Tara Gillette APRN.LOOP TACKER I spent a total of 30 minutes on the date of the service which included preparing to see the patient, [id number] patient care, completing clinical documentation, obtaining and/or reviewing separately obtained history, performing a medically appropriate examination, counseling and educating the pat ient/family/caregiver and ordering medications, tests, or procedures. documented in this encounterUniversity Hospitals Portage Medical Center08-02-2022 Miscellaneous Notes* Addendum Note - Ivette Grimes MD - 06/05/2022 1:46 PM EDT Addended by: IVETTE GRIMES on: 06/05/2022 01:46 PM Modules accepted: Orders * Telephone Encounter - Ivette Grimes MD - 06/05/2022 1:44 PM EDT Can send lab to [facility] to be done in two weeks documented in this encounterUniversity Hospitals Portage Medical Center07-26-2022 Miscellaneous Notes* Telephone Encounter - [...] says she had CMP andCBC done at [facility] on 02/09. These are in pt chart. Pt asking if she needs to have labs redrawn or if the ones done in February are sufficient. Please advise. Thank you. LEVAR Jasmine documented in this encounterUniversity Hospitals Portage Medical Center07-21-2022 NoteHNO ID: [id number] Author: Adelina Marinelli APRN.LOOP TACKER Service: ? Author Type: Nurse Practitioner Type: Progress Notes Filed: 05/24/2022 10:08 PM Note Text: [facility] Today's Date: 05/24/2022 Last Visit: 03/29/22 [...] (A) 74 - 99 mg/dL Final Comment: Location:[facility], [address] [place] [address] The Accu-Chek Inform II glucose meter has [...] greater than (more content not included)...[facility]07-21-2022 NoteHNO ID: [id number] Author: Gloria Oh MA Service: ? Author Type: Floor Molder Type: Progress Notes Filed: 05/24/2022 10:08 PM [...] ideas. The patient is not nervous/anxious.[facility]07-21-2022 Instructions* Patient Instructions* Adelina Marinelli APRN.CNP - 05/24/2022 11:52 AM EDT Activity as tolerated Use Ice and/or heat as tolerated as needed documented in this encounterUniversity Hospitals Portage Medical Center07-21-2022 History of Present illness Narrative* Adelina Marinelli APRN.CNP - 05/24/2022 11:28 AM EDT Images from the original note were not included. [facility] Today's Date: 05/24/2022 Last Visit: 03/29/22 [...] (A) 74 - 99 mg/dL Final Comment: Location:[facility], [address] [place] [address], [place], [place], [facility] The Accu-Chek Inform II glucose meter [...] suspiciousactivity was identified. 05/24/2022 by Adelina Marinelli APRN.LOOP TACKER Last Drug screen: Not Applicable Risk Assessment: [...] refill. UDS, NAOIC/ORT: up to date Functional Adventism: Physical Therapy (Land-based) Additional Studies: None Referrals: [...] decision making from today's date. Adelina Marinelli APRN.LOOP TACKER Pain Management [facility] * Gloria Oh MA - 05/24/2022 [...] not nervous/anxious. documented in this encounterUniversity Hospitals Portage Medical Center07-08-2022 Miscellaneous Notes* Telephone Encounter - Livia Luna - 05/11/2022 3:17 PM EDT Left brief message asking patient to call back with any questions or concerns about a recent appointment. Livia Luna LPN May 11, 2022 3:18 PM documented in this encounterUniversity Hospitals Portage Medical Center07-07-2022 NoteHNO ID: [id number] Author: Mirna Lanza LPN Service: ? Author [...] ideas. The patient is not nervous/anxious.[facility]07-07-2022 Nurse Note* Mirna Lanza LPN - [...] tablePatient s procedure was performed in an [facility] Procedure room. Pause completed at each level [...] Lanza LPN - 05/10/2022 10:03 AM EDT Bdr's Name: Marilynn Are you on a blood [...] one? n documented in this encounterUniversity Hospitals Portage Medical Center07-07-2022 Instructions* Patient Instructions* Mirna Lanza [...] and why. documented in this encounterUniversity Hospitals Portage Medical Center07-07-2022 NoteHNO ID: [id number] Author: Elle Rasheed MD Service: ? Author Type: Physician Type: Progress Notes Filed: 05/10/2022 11:04 AM Note Text: [facility] Patient name: Tori Gray Date of : 1980 Today's date: 05/10/2022 Purpose: Ultrasound-guided injection Diagnosis: (M75.02) Adhesive capsulitis of left shoulder (primary encounter diagnosis) (M19.012) Primary osteoarthritis of left shoulder Procedure: Left Shoulder/Chest Suprascapular Nerve Block Water F[employer] Instructor: Elle Rasheed M.D., M.B.A Comments: Allergy Due to the patient's reported history of allergy to Lidocaine, the following medication was substituted: Bupivacaine. Notes from [facility] 01/2020 reviewed, she had skin testing to multiple local anesthetics and steroids, without any reaction, but advised that she avoid Lidocaine where possible due to unknown negative predictive value of the tests. Other anesthetics had been used with other procedures that did not have a reaction (eg Bupivacaine). [place] protocol documentation / Pre-Procedure Checklist: ? ID [...] [facility] 05-10-2022 History of Present illness Narrative* Mirna [...] 8:23 AM EDT [facility] Patient name: Tori Gray Date of : 1980 Today's date: 05/10/2022 Purpose: Ultrasound-guided injection Diagnosis: (M75.02) Adhesive capsulitis of left shoulder (primary encounter diagnosis) (M19.012) Primary osteoarthritis of left shoulder Procedure: Left Shoulder/Chest Suprascapular Nerve Block Water Fitness Instructor: Elle Rasheed M.D. MStephanyB.A Comments: Allergy Due to the patient's reported history of allergy to Lidocaine, the following medication was substituted: Bupivacaine. Notes from [facility] 01/2020 reviewed, she had skin testing to multiple local anesthetics and steroids, without any reaction, but advised that she avoid Lidocaine where possible due to unknown negative predictive value of the tests. Other anesthetics had been usedwith other procedures that did not have a reaction (eg Bupivacaine). [place] protocol documentation / Pre-Procedure Checklist: ID verified [...] SULEIMAN Pain Management [facility] documented in this encounterUniversity Hospitals Portage Medical Center07-05-2022 Miscellaneous Notes* Telephone Encounter - Lubna Yoon LPN - 05/08/2022 1:04 PM EDT Sent a [employer] message * Telephone Encounter - Ivette Grimes MD - 05/08/2022 12:56 PM EDT I would recommend she follow up and see one of us here. documented in this [facility]06-30-2022 Miscellaneous Notes* Telephone Encounter - Jumana Harrell [...] advise. Jumana Harrell LPN documented in this [facility]06-28-2022 Instructions* Patient Instructions* Ivette Grimes MD - [...] a day. documented in this encounterUniversity Hospitals Portage Medical Center06-28-2022 History of Present illness Narrative* [...] in bed with current PAP mask. Ipratropium Wynne (ATROVENT) 0.03 % nasal spray Use 2 [...] 2 DM - Controlled E11.9 Insulin: No Pvwywjog-Yr-Qku-Fe-FA ( FORMULA) ORAL Tab Take 1 tablet by mouth once daily. Natoma-3 Fatty Acids (FISH OIL) 500 mg cap [...] Age of Onset Alcohol/Drug Mother Heart Father [place] Cancer Father PANCREATIC CANCER Diabetes Father Diabetes [...] and prn. documented in this encounterUniversity Hospitals Portage Medical Center06-16-2022 Miscellaneous Notes* Addendum Note - Ivette Grimes MD - 04/19/2022 2:41 PM EDT Addended by: IVETTE GRIMES on: 04/19/2022 02:41 PM Modules accepted: Orders documented in this encounterUniversity Hospitals Portage Medical Center06-13-2022 Miscellaneous Notes* Telephone Encounter - Ivette Price Jr., MD - 04/16/2022 6:04 PM EDT Please contact DME ([facility]) to determine if pt qualifies for new PAP device. If so, can order a new [employer] PAP. Thank you, Ivette Price MD documented in this encounterCleveland [id number] Miscellaneous Notes* Telephone Encounter - Quinn Lazo LPN - 04/16/2022 10:28 AM EDT Patient phones requesting refills as follows: Pending Prescriptions Disp Refills TIZANIDINE 4 MG TABLET 20 tablet 0 Sig: Take 1 tablet by mouth every 8 hours as needed. CRISTINA: No APRIL 02/28/22 NOV 05/01/22 Please review and advise. Quinn Lazo LPN documented in this encounterUniversity Hospitals Portage Medical Center06-06-2022 Instructions* Patient Instructions* Ivette Price Jr., MD [...] Tylenol use. documented in this encounterUniversity Hospitals Portage Medical Center06-06-2022 History of Present illness Narrative* Ivette Price [...] this resolves mask issues. Rx sent to [facility]. During visit, discussed with patient: the physiology [...] in bed with current PAP mask. Ipratropium Wynne (ATROVENT) 0.03 % nasal spray Use 2 Sprays in the nose every 12 hours. blood sugar diagnostic (BLOOD GLUCOSE TEST) test strip Test blood sugar(s) 1 times daily. Dx: Type 2 DM - Controlled E11.9 Insulin: Yes Lancets lancets Test blood sugar(s) 1 times daily. Dx: Type 2 DM - Controlled E11.9 Insulin: No Pcdvdgss-Sn-Wag-Fe-FA ( FORMULA) ORAL Tab Take 1 tablet by mouth once daily. metroNIDAZOLE (METROGEL) 0.75 % Topical Gel Apply to affected area twice daily. Natoma-3 Fatty Acids (FISH OIL) 500 mg cap Take 1 capsule by mouth once daily. HISTORIES PAST MEDICAL HISTORY Diagnosis Date Acute cholecystitis Cholecystitis Anxiety 06/07/2014 Type 2 diabetes mellitus (HCC) FAMILY HISTORY Problem Relation Age of Onset Alcohol/Drug Mother Heart Father [place] Cancer Father PANCREATIC CANCER Diabetes Father Diabetes [...] BP. Check CMP and CBC due to detention med use. 3. LETITIA (obstructive sleep apnea) [...] when sleepy. Advised pt to avoid ozone title specialist. Ivette Price MD I spent a total of 40+ minutes on the date of the service which included preparing to see the patient, [id number]-qg-[id number] patient care, completing clinical documentation, obtaining and/or reviewing separately obtained history, performing a medically appropriate examination, counseling and educating the pa tient/family/caregiver, ordering medications, tests, or procedures, independently interpreting results (not separately reported) and communicating results to the patient/family/caregiver. documented in this encounterUniversity Hospitals Portage Medical Center06-02-2022 Miscellaneous Notes* Telephone Encounter - Helen Camacho LPN - 04/05/2022 9:51 AM EDT Last office visit 02/23/2022 documented in this encounterUniversity Hospitals Portage Medical Center05-27-2022 Miscellaneous Notes* Telephone Encounter - Milena Rico LPN - 03/30/2022 11:08 AM EDT april-- 02/28/22 Next 05/01/22 Last refill-- 03/16/22 20 with 0 refills Last labs 02/07/22 documented in this encounterUniversity Hospitals Portage Medical Center05-26-2022 Miscellaneous Notes* Telephone Encounter - [...] Terese Cruz documented in this encounterUniversity Hospitals Portage Medical Center05-26-2022 NoteHNO ID: [id number] Author: Henna Boles MA Service: ? Author Type: Floor Molder Type: Progress Notes Filed: 03/29/2022 11:48 AM [...] ideas. The patient is not nervous/anxious.[facility]05-26-2022 History of Present illness Narrative* Henna [...] [facility] Name: Tori Gray : 1980 Purpose: [...] 12/21/2021, noted she had an EMG at [facility] which was normal (Jul 2021). MRI shoulder had very minor degenerative changes. Non-surgical management was advised. 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 [...] (Meloxicam) and Lodine (Etodolac) Opioids: Vicodin or [place] (Hydrocodone) and Percocet (Oxycodone) Muscle Relaxants: Zanaflex [...] Referrals: No additional considerations at present Functional Adventism: No changes-continue current regimen Depending on response [...] [facility]LEIMAN Pain Management [facility] documented in this encounterUniversity Hospitals Portage Medical Center05-26-2022 NoteHNO ID: [id number] Author: Elle Rasheed MD Service: ? Author Type: Physician Type: Progress Notes Filed: 03/29/2022 11:48 AM Note Text: [facility] Name: Tori Gray : 1980 Purpose: [...] 12/21/2021, noted she had an EMG at [facility] which was normal (Jul 2021). MRI shoulder had very minor degenerative changes. Non-surgical management was advised. 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 [...] (Meloxicam) and Lodine (Etodolac) Opioids: Vicodin or [place] (Hydrocodone) and Percocet (Oxycodone) Muscle Relaxants: Zanaflex [...] date, noted (more content not included)...[facility]05-13-2022 Miscellaneous Notes* Telephone Encounter - Helen Camacho LPN - 03/16/2022 11:14 AM EDT Patient phones requesting refills as follows: Pending Prescriptions Disp Refills TIZANIDINE 4 MG TABLET 20 tablet 0 Sig: Take 1 tablet by mouth every 8 hours as needed. CRISTINA: No Please review and advise. Helen Camacho LPN documented in this encounterUniversity Hospitals Portage Medical Center05-02-2022 Miscellaneous Notes* Telephone Encounter - [...] LEVAR Jasmine documented in this encounterUniversity Hospitals Portage Medical Center04-27-2022 History of Present illness Narrative* Ivette Grimes MD - 02/28/2022 4:43 PM EDT Patient presents with: ED Follow-up HPI: Patient presents today for office visit for follow up. Nursing Notes: Nirmala Cordelia SÁNCHEZ 02/28/2022 4:42 PM Signed HOSPITAL/ER FOLLOW UP: Reason for visit: back pain/headache(different pain not her chronic pain) Pain went from lower backup to shoulders. Which facility: [facility] Date of visit: 02/27/22 Diagnosis: back [...] week as well. Happened all day yesterday. [place] different than her classic disc pain. Might [...] in bed with current PAP mask. Ipratropium Wynne (ATROVENT) 0.03 % nasal spray Use 2 Sprays in the nose every 12 hours. metroNIDAZOLE (METROGEL) 0.75 % Topical Gel Apply to affected area twice daily. Natoma-3 Fatty Acids (FISH OIL) 500 mg cap Take 1 capsule by mouth once daily. blood sugar diagnostic (BLOOD GLUCOSE TEST) test strip Test blood sugar(s) 1 times daily. Dx: Type 2 DM - Controlled E11.9 Insulin: Yes Lancets lancets Test blood sugar(s) 1 times daily. Dx: Type 2 DM - Controlled E11.9 Insulin: No Vsxsoryx-Ej-Nev-Fe-FA ( FORMULA) ORAL Tab Take 1 tablet [...] Age of Onset Alcohol/Drug Mother Heart Father [place] Cancer Father PANCREATIC CANCER Diabetes Father Diabetes [...] Z79.4 Controlled. - Continue current medications 4. LETIITA (obstructive sleep apnea) - ICD9: 327.23, ICD10: G47.33 - stable. 5. Lumbar disc disorder - ICD9: 722.93, ICD10: M51.9 - see dr. Rasheed 6. Elevated BP without diagnosis of hypertension - ICD9: 796.2, ICD10: R03.0 - Call with bp in two weeks. - Goal of BP <130/80 Ivette Grimes RTO in six to eight weeks documented in this encounterUniversity Hospitals Portage Medical Center04-27-2022 Nurse Note* Nirmala Storey LPN - 02/28/2022 4:36 PM EDT HOSPITAL/ER FOLLOW UP: Reason for visit: back pain/headache(different pain not her chronic pain) Pain went from lower backup to shoulders. Which facility: [facility] Date of visit: 02/27/22 Diagnosis: back pain, hypertension Testing done: CT scan and labs Treatment given: no new changes Current symptoms: mild headache still and back pain, just feels off Was just feeling off. Aching. Cold chills. Scheduled with Dr Rasheed. documented in this encounterUniversity Hospitals Portage Medical Center04-26-2022 Miscellaneous Notes* Telephone Encounter - Quinn Lazo LPN - 02/27/2022 12:44 PM EDT Appt scheduled. Quinn Lazo LPN documented in this encounterUniversity Hospitals Portage Medical Center04-22-2022 Miscellaneous Notes* Telephone Encounter - [...] LEVAR Jasmine documented in this encounterUniversity Hospitals Portage Medical Center04-06-2022 Miscellaneous Notes* Telephone Encounter - Nirmala Storey LPN - 02/07/2022 4:09 PM EDT [employer] message sent to patient. * Telephone Encounter - Ivette Grimes MD - 02/07/2022 3:38 PM EDT Let her her know her labs look great. * Telephone Encounter - Nirmala Storey LPN - 02/07/2022 2:33 PM EDT Received lab results from [facility]. Placed on desk for review. documented in this encounterUniversity Hospitals Portage Medical Center04-04-2022 Miscellaneous Notes* Telephone Encounter - Tessy Wadsworth Ma - 02/05/2022 12:25 PM EDT Labs faxed within [facility] to update if there are any issues. Tessy Wadsworth Ma documented in this encounterUniversity Hospitals Portage Medical Center03-28-2022 Miscellaneous Notes* Telephone Encounter - Darrion Barahona [...] Thank you! documented in this encounterUniversity Hospitals Portage Medical Center02-02-2013 History of Past illness Narrative* [...] encounter (statuses as of 01/30/2022) [facility] History of Past illness Narrative* [...] encounter (statuses as of 02/05/2022) [facility] History of Past illness Narrative* [...] encounter (statuses as of 02/07/2022) [facility] History of Past illness Narrative* [...] encounter (statuses as of 02/07/2022) [facility] of Past illness Narrative* [...] encounter (statuses as of 02/08/2022) [facility] of Past illness Narrative* [...] encounter (statuses as of 02/23/2022) [facility] of Past illness Narrative* [...] encounter (statuses as of 02/27/2022) [facility] of Past illness Narrative* [...] encounter (statuses as of 02/28/2022) [facility] of Past illness Narrative* [...] encounter (statuses as of 03/05/2022) [facility] of Past illness Narrative* [...] encounter (statuses as of 03/16/2022) [facility] of Past illness Narrative* [...] encounter (statuses as of 03/29/2022) [facility] of Past illness Narrative* [...] encounter (statuses as of 03/29/2022) [facility] of Past illness Narrative* [...] encounter (statuses as of 03/30/2022) [facility] of Past illness Narrative* [...] encounter (statuses as of 04/05/2022) [facility] Narrative* [...] encounter (statuses as of 04/09/2022) [facility] History of Past illness Narrative* [...] encounter (statuses as of 04/10/2022) [facility] History of Past illness Narrative* [...] encounter (statuses as of 04/16/2022) [facility] History of Past illness Narrative* [...] encounter (statuses as of 04/16/2022) [facility] History of Past illness Narrative* [...] encounter (statuses as of 04/19/2022) [facility] History of Past illness Narrative* [...] encounter (statuses as of 05/01/2022) [facility] of Past illness Narrative* [...] encounter (statuses as of 05/03/2022) [facility] History of Past illness Narrative* [...] encounter (statuses as of 05/08/2022) [facility] History of Past illness Narrative* [...] encounter (statuses as of 05/10/2022) [facility] History of Past illness Narrative* [...] encounter (statuses as of 05/11/2022) [facility] of Past illness Narrative* [...] encounter (statuses as of 05/25/2022) [facility] History of Past illness Narrative* [...] encounter (statuses as of 05/29/2022) [facility] History of Past illness Narrative* [...] encounter (statuses as of 06/05/2022) [facility] History of Past illness Narrative* [...] encounter (statuses as of 06/05/2022) [facility] History of Past illness Narrative* [...] encounter (statuses as of 06/07/2022) [facility] History of Past illness Narrative* Problem Noted Date Resolved Date Routine general medical exam ination at a health care facility 12/06/2012 02/22/2014 Routine general medical exam ination at a [facility] 01/23/2010 12/06/2012 Overview: 01/23/2010, from [...] encounter (statuses as of 06/07/2022) [facility] History of Past illness Narrative* [...] encounter (statuses as of 06/22/2022) [facility] History of Past illness Narrative* [...] encounter (statuses as of 07/03/2022) [facility] History of Past illness Narrative* [...] encounter (statuses as of 07/10/2022) [facility] History of Past illness Narrative* [...] encounter (statuses as of 07/19/2022) [facility] History of Past illness Narrative* [...] encounter (statuses as of 07/19/2022) [facility] History of Past illness Narrative* [...] encounter (statuses as of 07/23/2022) [facility] History of Past illness Narrative* [...] encounter (statuses as of 08/01/2022) [facility] History of Past illness Narrative* [...] encounter (statuses as of 08/02/2022) [facility] History of Past illness Narrative* [...] encounter (statuses as of 08/03/2022) [facility] History of Past illness Narrative* [...] encounter (statuses as of 08/06/2022) [facility] History of Past illness Narrative* [...] encounter (statuses as of 08/08/2022) [facility] History of Past illness Narrative* [...] encounter (statuses as of 08/08/2022) [facility] History of Past illness Narrative* [...] encounter (statuses as of 08/08/2022) [facility] History of Past illness Narrative* [...] encounter (statuses as of 08/27/2022) [facility] History of Past illness Narrative* [...] of this encounter (statuses as of 09/03/2022) [facility]Reason for [facility] Narrative* Chief [...] dysfunction of thoracic region Disc displacement, lumbar [facility] Work Phone: Consult note Author Ankur Templeton [facility] Note Date/Time June 23, 2025 8: 58am [facility] Medical Records Department [address] [place] [id number] Anesthesia Postop Eval I 06/23/25 0857 MR#: [id number] Acct: [id number] Name: TORI GRAY Rep #:[id number] : 1980 45 From: Ankur ROJO PCP: Dr. Ivette Grimes MD Status:REG S DC Y Race: C Location: [place] [address] Anesthesia: Postop Eval I Current Vital Signs [...] CRNA Cosigner Signature: Date CC: ~ Signed [facility] Work Phone: Discharge summary Author Sam Pearl [facility] February 04, 2024 3:49am Note Date/Time February 04, 2024 2:07 am [facility] Medical Records Department [address] [place] [address] Emergency Department Summary 02/04/24 MR#: [id number] Acct: [id number] Name: TORI GRAY Rep #:[id number] : 1980 43 From: Sam Pearl MD [...] last A1c was in the 5.1 range. [facility] Medical History Abnormal ECG Acute bronchitis [...] %) nasal spray 2 spray intranasal BID [id number]/20/20 [History Last Taken 08/03/23] omega-3 fatty acids [...] Neuro Narrative: Normal speech. No aphasia. Normal [id number] and dekj-mm-msru bilaterally. No confusion. 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 She describes visual disturbance being diffuse, [...] (Auto) 71.0 H Lymph % (Auto) 19.8 [place] % (Auto) 6.6 Eos % (Auto) [...] Clarity Clear Urine pH 7.0 Ur Specific [place] 1.010 Urine Protein 15 H Urine Glucose [...] 3:17 EDT Reading Location ID and State: [facility] / [place] Tel , Service support , Discharge Plan [...] your Primary Care Provider. Call [facility] ([phone]) or report to the closest Emergency Room. Call 911 if necessary. 02/04/24 3089 <Electronically signed by Sam Pearl MD> Cosigner Signature (if applicable): CC: Dr. Ivette Grimes MD ~ Signed [facility] Work Phone: Evaluation note* Diagnosis Onset [...] region acute Disc displacement, lumbar ch ronic [facility] Work Phone: Evaluation note* Diagnosis Upper back pain- Primary Acute midline low back pain without sciatica Type 2 diabetes mellitus with microalbuminuria, with long-term current use of insulin ([facility]) LETITIA (obstructive sleep apnea) Obstructive sleep apnea (adult) (pediatric) Lumbar disc disorder Other and unspecified disc disorder of lumbar region Elevated BP without diagnosis of hypertension [facility] Diagnosis Myofascial pain- Primary Mylagia and myositis, unspecified Chronic left shoulder pain Pain in joint, shoulder region Neuropathic pain Neuralgia, neuritis, and radiculitis, unspecified Adhesive capsulitis of left shoulder Adhesive capsulitis of shoulder Primary osteoarthritis of left shoulder Primary localized osteoarthrosis, shoulder region [facility] Diagnosis Migraine without aura [...] comorbidity present (HCC) [facility] Diagnosis Intractable migraine without [...] comorbidity present (HCC) [facility]* Diagnosis Intractable chronic migraine without aura and without status migrainosus- Primary Chronic migraine without aura, with intractable migraine, so stated, without mention of status migrainosus Mixed migraine and muscle contraction headache Migraine, unspecified, without mention of intractable migraine without mention of status migrainosus [facility]* Diagnosis Onset Date Resolution Status [...] region acute Disc displacement, lumbar ch ronic [facility] Work Phone: Evaluation note* Diagnosis Type [...] type [facility] Diagnosis Onset Date Resolution [...] somatic dysfunction of thoracic region chronic Obesity [facility] Work Phone: Evaluation note* Diagnosis Onset [...] chronic Obesity chronic Type 2 diabetes mellitus [facility] Work Phone: Evaluation note* Diagnosis Malaise- Primary Other malaise and fatigue [facility] Diagnosis Onset Date Resolution [...] region acute Disc displacement, lumbar ch ronic [facility] Work Phone: Evaluation note* Diagnosis Lightheadedness- Primary Dizziness and giddiness Essential (primary) hypertension Unspecified essential hypertension Prolonged Q-T interval on ECG Nonspecific abnormal electrocardiogram (ECG) (EKG) Type 2 diabetes mellitus with microalbuminuria, with long-term current use of insulin (HCC) Fatty liver Other chronic nonalcoholic liver disease LETITIA (obstructive sleep apnea) Obstructive sleep apnea (adult) (pediatric) documented [facility] Diagnosis Anxiety with depression- Primary [facility] Diagnosis Onset Date Resolution Status [...] region acute Disc displacement, [facility]* Diagnosis Onset Date [...] region acute Disc displacement, lumbar ch ronic [facility] Work Phone: Evaluation note* Diagnosis VAHE (generalized anxiety disorder)- Primary Generalized anxiety disorder Major depressive disorder, recurrent episode, moderate (HCC) Major depressive disorder, recurrent episode, moderate [facility] Diagnosis Chronic left shoulder pain- Primary Pain in joint, shoulder region Adhesive capsulitis of left shoulder Adhesive capsulitis of shoulder Neuropathic pain Neuralgia, neuritis, and radiculitis, unspecified Myofascial pain Mylagia and myositis, unspecified [facility] Diagnosis Chronic left shoulder pain- Primary Pain in joint, shoulder region Adhesive capsulitis of left shoulder Adhesive capsulitis of shoulder Chronic left shoulder pain Pain in joint, shoulder region Adhesive capsulitis of left shoulder Adhesive capsulitis of shoulder [facility] Diagnosis Microalbuminuria Proteinuria Type [...] shoulder [facility] encounter [facility] Diagnosis Onset Date Resolution Status [...] region acute Disc displacement, lumbar ch ronic [facility] Work Phone: Evaluation note* Diagnosis Onset [...] region acute Disc displacement, lumbar ch ronic [facility] Work Phone: Evaluation note* Diagnosis Worst headache of life- Primary Headache Concussion with loss of consciousness, initial encounter Chronic left shoulder pain Pain in joint, shoulder region Adhesive capsulitis of left shoulder Adhesive capsulitis of shoulder [facility]* Diagnosis Headache, unspecified headache type- Primary Concussion with loss of consciousness, initial encounter Chronic left shoulder pain Pain in joint, shoulder region Adhesive capsulitis of left shoulder Adhesive capsulitis of shoulder [facility] Diagnosis Post concussion syndrome- [...] capsulitis of shoulder [facility]* Diagnosis Headache, unspecified headache type- Primary Concussion with loss of consciousness, initial encounter Chronic left shoulder pain Pain in joint, shoulder region Adhesive capsulitis of left shoulder Adhesive capsulitis of shoulder [facility] this encounter [facility]* Diagnosis Post concussion syndrome- Primary Postconcussion syndrome Essential (primary) hypertension Unspecified essential hypertension Microalbuminuria Proteinuria Type 2 diabetes mellitus without complication, with long-term current use of insulin (HCC) Chronic left shoulder pain Pain in joint, shoulder region Adhesive capsulitis of left shoulder Adhesive capsulitis of shoulder [facility] encounter [facility] Diagnosis Post concussion syndrome- Primary Postconcussion syndrome Essential (primary) hypertension Unspecified essential hypertension Chronic left shoulder pain Pain in joint, shoulder region Adhesive capsulitis of left shoulder Adhesive capsulitis of shoulder [facility] this encounter [facility]* Diagnosis Post concussive syndrome- Primary Postconcussion syndrome Headache, unspecified headache type [facility] this encounter [facility] Diagnosis Post concussive syndrome- Primary Postconcussion syndrome Headache, unspecified headache type Injury of neck, subsequent encounter [facility] this encounter [facility]* Diagnosis Onset Date Resolution Status [...] region acute Disc displacement, lumbar ch ronic [facility] Work Phone: Evaluation note* Diagnosis Intractable chronic migraine without aura and without status migrainosus- Primary Chronic migraine without aura, with intractable migraine, so stated, without mention of status migrainosus [facility] Chronic left shoulder pain- Primary Pain in joint, shoulder region Adhesive capsulitis of left shoulder Adhesive capsulitis of shoulder Neuropathic pain Neuralgia, neuritis, and radiculitis, unspecified Primary osteoarthritis of left shoulder Primary localized osteoarthrosis, shoulder region Myofascial pain Mylagia and myositis, unspecified Lumbar spondylosis Lumbosacral spondylosis without myelopathy [facility] Diagnosis Post concussive syndrome- Primary Postconcussion syndrome Headache, unspecified headache type Injury of neck, subsequent encounter [facility] Diagnosis Soft tissue mass- Primary Disorders of soft tissue, unspecified [facility] Diagnosis VAHE (generalized anxiety disorder)- Primary Generalized anxiety disorder Recurrent major depressive disorder, in full remission (HCC) [facility] this encounter [facility] Diagnosis Onset Date Resolution [...] region acute Disc displacement, lumbar ch ronic [facility] Work Phone: Evaluation note* Diagnosis Anxiety- Primary Anxiety state, unspecified [facility] Diagnosis Soft tissue mass- Primary Disorders of soft tissue, unspecified Post concussive syndrome Postconcussion syndrome Essential (primary) hypertension Unspecified essential hypertension Type 2 diabetes mellitus with microalbuminuria, with long-term current use of insulin (HCC) Headache, unspecified headache type Myalgia Mylagia and myositis, unspecified [facility] Diagnosis Post concussion syndrome- Primary Postconcussion syndrome LETITIA (obstructive sleep apnea) Obstructive sleep apnea (adult) (pediatric) [facility] Diagnosis Encounter for gynecological examination (general) (routine) without abnormal findings- Primary [facility] Diagnosis Post concussion syndrome- Primary Postconcussion syndrome LETITIA (obstructive sleep apnea) Obstructive sleep apnea (adult) (pediatric) Intractable acute post-traumatic headache Acute post-traumatic headache Altered awareness, transient Transient alteration of awareness [facility] this encounter [facility] Diagnosis Onset Date Resolution [...] region acute Disc displacement, lumbar ch ronic [facility] Work Phone: Evaluation note* Diagnosis Intractable chronic migraine without aura and without status migrainosus- Primary Chronic migraine without aura, with intractable migraine, so stated, without mention of status migrainosus Post concussive syndrome Postconcussion syndrome [facility] Diagnosis Onset Date Resolution [...] region acute Disc displacement, lumbar ch ronic [facility] Work Phone: Evaluation note* Diagnosis Foot pain, right- Primary Pain in limb [facility] this encounter [facility]* Diagnosis Type 2 diabetes mellitus [...] type [facility] this encounter [facility]* Diagnosis Memory loss- Primary Attention and concentration deficit Attention or concentration deficit Post concussion syndrome Postconcussion syndrome Intractable migraine without aura and without status migrainosus Migraine without aura, with intractable migraine, so stated, without mention of status migrainosus LETITIA (obstructive sleep apnea) Obstructive sleep apnea (adult) (pediatric) documented [facility] this encounter [facility] Diagnosis Plantar fasciitis- Primary Plantar fascial fibromatosis Calcaneal spur of right foot Calcaneal spur [facility] encounter [facility]* Diagnosis SOB (shortness of breath) Shortness of breath [facility] this encounter [facility] Diagnosis SOB (shortness of breath) Shortness of breath [facility] Diagnosis Onset Date Resolution Status [...] region acute Disc displacement, lumbar ch ronic [facility] Work Phone: Evaluation note* Diagnosis Post concussion syndrome Postconcussion syndrome Intractable acute post-traumatic headache Acute post-traumatic headache Dizziness Dizziness and giddiness Cervicalgia documented [facility] Diagnosis Post concussive syndrome Postconcussion syndrome Headache, unspecified headache type [facility] this encounter [facility] Diagnosis Onset Date Resolution [...] thoracic region acute Disc displacement, lumbar ch [facility] Work Phone: Evaluation note* Diagnosis Onset [...] thoracic region acute Disc displacement, lumbar ch [facility] Work Phone: Evaluation note* Diagnosis Essential (primary) hypertension- Primary Unspecified essential hypertension LETITIA (obstructive sleep apnea) Obstructive sleep apnea (adult) (pediatric) Fatty liver Other chronic nonalcoholic liver disease Vertigo Dizziness and giddiness Anxiety Anxiety state, unspecified [facility] Diagnosis Encounter for screening mammogram for malignant neoplasm of breast- Primary Other screening mammogram [facility] Diagnosis Onset Date Resolution [...] ronic Obesity chronic LETITIA (obstructive sleep apnea) [facility] Work Phone: Evaluation note* Diagnosis Intractable chronic migraine without aura and without status migrainosus- Primary Chronic migraine without aura, with intractable migraine, so stated, without mention of status migrainosus documented [facility] this encounter [facility]* Diagnosis Onset Date Resolution Status Obesity chronic LETITIA (obstructive sleep apnea) [facility] Work Phone: Evaluation note* Diagnosis Intractable chronic migraine without aura and without status migrainosus- Primary Chronic migraine without aura, with intractable migraine, so stated, without mention of status migrainosus [facility] Diagnosis Headache, unspecified headache type [facility] this encounter [facility]* Diagnosis Headache, unspecified headache type [facility] Diagnosis Left sided sciatica- Primary Sciatica Screening for depression [facility] Diagnosis Acute cough- Primary [facility]* Diagnosis Bronchitis- Primary Bronchitis, not specified as acute or chronic Type 2 diabetes mellitus with microalbuminuria, with long-term current use of insulin (HCC) Wheezing documented [facility]* Diagnosis Type 2 diabetes mellitus with microalbuminuria, with long-term current use of insulin (HCC)- Primary [facility] this encounter [facility]* Diagnosis Cough, unspecified type- Primary [facility] this encounter [facility]* Diagnosis Pain of right heel Pain in limb [facility] Diagnosis Well adult exam- [...] Shortness of breath [facility] Diagnosis Sinobronchitis- Primary Unspecified sinusitis (chronic) Hypokalemia Hypopotassemia [facility] Diagnosis Sinobronchitis- Primary Unspecified sinusitis (chronic) [facility] Diagnosis Encounter for screening mammogram [...] Screening for depression [facility] Diagnosis Intractable chronic migraine without aura and without status migrainosus- Primary Chronic migraine without aura, with intractable migraine, so stated, without mention of status migrainosus Chronic left shoulder pain Pain in joint, shoulder region [facility] Diagnosis Intractable chronic migraine without aura and with status migrainosus- Primary Chronic migraine without aura, with intractable migraine, so stated, with status migrainosus [facility] Spasm of muscle [facility] Flank pain Abdominal pain, unspecified site [facility] Well adult exam- Primary [...] cancer [facility] Diagnosis LUQ pain Abdominal pain, left upper quadrant Flank pain Abdominal pain, unspecified site documented in this encounter [facility]* Diagnosis Type 2 diabetes mellitus with microalbuminuria, with long-term current use of insulin (HCC) [facility] Diagnosis Microalbuminuria Proteinuria Type 2 diabetes mellitus without complication, with long-term current use of insulin (HCC) documented [facility] this encounter [facility] Diagnosis Microalbuminuria Proteinuria Type 2 diabetes mellitus without complication, with long-term current use of insulin (HCC) documented in this encounter [facility]* Diagnosis Sepsis due to Escherichia coli [...] of status migrainosus documented in this encounter [facility] Discharge instructionsAmbulatory Orders* Electrophysiology Location: None Selected [facility] Work Phone: Hospital Discharge instructions Additional [...] care physician for further outpatient evaluation and management.[facility] Work Phone: Hospital Discharge instructionsAdditional Instructions Date of Dis[facility]: [facility] Work Phone: Progress note Author Brett Quiroga [facility] Note Date/Time August 05, 2025 9: 57am [facility] [address] [place] [address] OFFICE VISIT Date of Service: 08/05/25 MR#: [id number] Acct: [id number] Name: TORI GRAY Rep #: [id number] : 1980 Provider: Dr. Killian Quiroga MD Age/Sex: 45/F Location: [email or web address] Status: Signed Intake Vital Signs 07/06/25 10:30 [...] Positive Airway 07/06/25 08/05/25 Hist ory Pressure ([facility] INFORMATIONAL USE ONLY) CPAP - Continuous Positive Airway 07/06/25 08/05/25 H istory Pressure([facility] INFORMATIONAL USE ONLY) cefdinir 300 mg [...] tablet 50 mg PO ONCE 08/05/2508/05 History [facility] Medical History Impingement of left shoulder Diabetes [...] Cosigner Signature: Date (if applicable) CC: ~ [facility] [employer] Work Phone: [facility] for referral (narrative)* Diagnostic Procedure Only (Routine) - Pending Review Specialty Diagnoses / Procedures Referred By Petra t Referred To Contact XR IMAGING Diagnoses Rib pain Procedures XR RIBS/CHEST 3V AP RIB/OBLS/CXR LEFT RADEX RIBS UNI W/POSTEROANT CH MINIMUM 3 VIEWS Ivette Grimes MD [address] [place] [address] Xr Imaging Referral ID Status Reason Start Date Expiration Date Visits Requested Visits Authorized [id number] Pending Review Auto-Generat ed Referral 05/01/2022 05/31/2023 1 1 [facility] for referral (narrative)* - Pending Review Specialty Diagnoses / Procedures Referred By Petra meek Referred To Contact Physical Therapy Diagnoses Chronic left shoulder pain Adhesive capsulitis of left shoulder Primary osteoarthritis of left shoulder Procedures CONSULT TO PHYSICAL THERAPY Adelina Marinelli, THOM.LOOP TACKER [address] [place] [address] Referral ID Status Reason Start Date Expiration Date V isits Requested Visits Authorized [id number] Pending Review 05/24/2022 08/22/2022 1 1 [facility] for referral (narrative)* Outpatient Procedure (Routine) - Closed Specialty Diagnoses / Procedures Referred By Petra meek Referred To Contact [facility] Diagnoses Prolonged Q-T interval on ECG Procedures ECG COMPLETE ECG ROUTINE ECG W/LEAST 12 LDS W/I&R Ivette Grimes MD [address] [place] [address] [facility] [address] [place] [address] Referral ID Status Reason Start Date Expiration Date V isits Requested Visits Authorized [id number] Closed Auto-Generate d Referral 09/04/2022 09/04/2023 1 1 T [facility] for referral (narrative)* Diagnostic Procedure Only (Routine) - Pending Review Specialty Diagnoses / Procedures Referred By Petra meek Referred To Contact US IMAGING Diagnoses Soft tissue mass Procedures US HEAD/NECK SOFT TISSUE OTHER US SOFT TISSUE HEAD & NECK REAL TIME IMGE Ivette Charles MD [address] [place] [address] [facility] Referral ID Status Reason Start Date Expiration Date Visits Requested Visits Authorized [id number] Pending Review Auto-Generat ed Referral 01/31/2023 03/01/2024 1 1 [facility] for referral (narrative)* Outpatient Procedure (Routine) - Pending Review Specialty Diagnoses / Procedures Referred By Contac t Referred To Contact [facility] Diagnoses Altered awareness, transient Procedures EPIL EEG ROUTINE ELECTROENCEPHALOGRAM REC COMA/SLEEP ONLY Fatuma Beckford PA-C [address] [place] [address] [facility] [place] [address] [place] [id number] Referral ID Status Reason Start Date Expiration Date Visits Requested Visits Authorized [id number] Pending Review Auto-Generat ed Referral 03/05/2023 03/05/2024 1 1 [facility] for referral (narrative)* Diagnostic Procedure Only (Routine) - Pending Review Specialty Diagnoses / Procedures Referred By Petra t Referred To Contact BR IMAGING Diagnoses Encounter for screening mammogram for malignant neoplasm of breast Procedures FLASH SCREENING SCREENING MAMMOGRAPHY BI 2-[place] [address] [place] [address] [facility] [address] [place] [phone] Referral ID Status Reason Start Date Expiration Date Visits Requested Visits Authorized [id number] Pending Review Auto-Generat ed Referral 06/06/2023 07/05/2024 1 1 * Transition of Care (Routine) - Ref Not Required Specialty Diagnoses / Procedures Referred By Contac t Referred To Contact Pain Management Diagnoses Chronic left shoulder pain Herniation of lumbar intervertebral disc with radiculopathy Procedures CONSULT TO PAIN MGT Ivette Grimes MD [address] [place] [address] Referral ID Status Reason Start Date Expiration Date Visits Requested Visits Authorized [id number] Ref Not Required PCP Requested Referral 06/06/2023 06/05/2024 1 1 [facility] for referral (narrative)* Diagnostic Procedure Only (Routine) - Closed Specialty Diagnoses / Procedures Referred By Vladimirac t Referred To Contact MR IMAGING Diagnoses Post concussion syndrome Intractable acute post-traumatic headache Dizziness Cervicalgia Procedures MRI CERVICAL SPINE WO IVCON MRI SPINAL CANAL CERVICAL W/O CONTRAST MATRL Ivette Price Jr., MD [address] [facility] [address] [place] [address] [place] [address] Referral ID Status Reason Start Date Expiration Date V isits Requested Visits Authorized [id number] Closed Auto-Generat ed Referral Patient Cleared - [...] CONTRAST MATERIAL Ivette Price Jr., MD [address] [facility] [address] [place] [address] [place] [address] Referral ID Status Reason Start Date Expiration Date V isits Requested Visits Authorized [id number] Closed Auto-Generat ed Referral Patient Cleared - Admin/Chairm an/Director advise to proceed or did not respond 02/26/2023 02/28/2023 1 1 [facility] for referral (narrative)* Diagnostic Procedure Only (Routine) - Pending Review Specialty Diagnoses / Procedures Referred By Perta t Referred To Contact [facility] IM[facility] Diagnoses Encounter for screening mammogram for malignant neoplasm of breast Procedures FLASH SCREENING W JAQUELIN SCREENING DIGITAL BREAST TOMOSYNTHESIS BI SCREENING MAMMOGRAPHY BI 2-VIEW BREAST INC Ivette Rey MD [address] [place] [address] [facility] [address] [place] [address] Referral ID Status Reason Start Date Expiration Date Visits Requested Visits Authorized [id number] Pending Review Auto-Generat ed Referral 12/09/2023 01/07/2025 1 1 [facility] for referral (narrative)* Diagnostic Procedure Only (Urgent) - Closed Specialty Diagnoses / Procedures Referred By Contac t Referred To Contact XR IMAGING Diagnoses Pain of right heel Procedures XR FOOT GENERAL 3V AP/LAT/OBL RIGHT RADEX FOOT COMPLETE MINIMUM 3 VIEWS Nicole Anton PA-C [address] [place] [address] [place] [address] Referral ID Status Reason Start Date Expiration Date V isits Requested Visits Authorized [id number] Closed Auto-Generate d Referral 05/28/2023 06/26/2024 1 1 [facility] for referral (narrative)No reason for referral information availableWPro[facility] Work [facility] N[facility]* Diagnostic Procedure Only (Routine) - Closed Specialty Diagnoses / Procedures Referred By Contac t Referred To Contact MR IMAGING Diagnoses Post concussion syndrome Intractable acute post-traumatic headache Dizziness Cervicalgia Procedures MRI CERVICAL SPINE WO IVCON MRI SPINAL CANAL CERVICAL W/O CONTRAST MATRL Ivette Price Jr., MD [address] [place] [phone] [place] [address] Referral ID Status Reason Start Date Expiration Date V isits Requested Visits Authorized [id number] Closed Auto-Generat ed Referral Patient Cleared - Admin/Chairm an/Director advise to proceed or did not respond 02/26/2023 02/28/2023 1 1 [facility] for visit Narrative* Diagnostic Procedure Only (Urgent) - Closed Specialty Diagnoses / Procedures Referred By Contac t Referred To Contact XR IMAGING Diagnoses Pain of right heel Procedures XR FOOT GENERAL 3V AP/LAT/OBL RIGHT RADEX FOOT COMPLETE MINIMUM 3 VIEWS Nicole Anton PA-C [address] [place] [address] [place] [address] Referral ID Status Reason Start Date Expiration Date V isits Requested Visits Authorized [id number] Closed Auto-Generate d Referral 05/28/2023 06/26/2024 1 1 [facility] Family History No Family History [...] Will No November 21 3:58pm Power of Oiler Bander No November 21, 2021 3:58pm Advance Directive Response Recorded Date/ Time Advance Directives No November 21, 2021 3:58pm Living Will No February 27, 2022 10:01am Power of Oiler Bander No February 27 10:01am Advance Directive Response Recorded Date/ Time Advance Directives No November 21, 2021 2:58pm Living Will No February 27, 2022 9:01am Power of Oiler Bander No February 27 9:01am Advance Directive Response Recorded Date/ Time Advance Directives No November 21, 2021 2:58pm Living Will No November 24 11:49am Power of Oiler Bander No November 24, 2022 11:49am Advance Directive Response Recorded Date/ Time Advance Directives No November 21, 2021 2:58pm Living Will No November 27 3:43pm Power of Oiler Bander No November 27, 2022 3:43pm Advance Directive Response Recorded Date/ Time Advance Directives No November 21, 2021 3:58pm Living Will No December 03 7:35pm Power of Oiler Bander No December 03, 2022 7:35pm Advance Directive Response Recorded Date/ Time Advance Directives No November 21, 2021 3:58pm Living Will No May 20, 2023 9:41pm Power of Oiler Bander No May 20 9:41pm Advance Directive Response Recorded Date/ Time Advance Directives No November 21, 2021 3:58pm Living Will No August 05 9:54am Power of Oiler Bander No August 05 9:54am Advance Directive Response Recorded Date/ Time Advance Directives No November 21, 2021 2:58pm Living Will No August 05 12:04pm Power of Oiler Bander No August 05, 2 023 12:04pm Advance Directive Response Recorded Date/ Time Advance Directives No November 21, 2021 2:58pm Living Will No October 27, 2 023 4:06pm Power of Oiler Bander No October 27, 2023 4:06pm Advance Directive Response Recorded Date/ Time Advance Directives No November 21, 2021 3:58pm Living Will No February 04, 2024 1:16am Power of Oiler Bander No February 03 1:16am Advance Directive Response Recorded Date/ Time Advance Directives No October 07, 2024 8:43am Living Will No October 16, 024 10:17pm Do you have a Healthcare Power of Oiler Bander? No October 16, 2024 10:17pm Living Will No November 11 7:01am Do you have a Healthcare Power of Oiler Bander? No November 11, 2024 7:01am Advance Directive Response Recorded Date/ Time Advance Directives No March 09, 2025 9:20am Advance Directive Response Recorded Date/ Time Advance Directives No March 09, 2025 9:20am Do you have a Healthcare Power of Oiler Bander? No June 10, 2025 9:08am Advance Directive Response Recorded Date/ Time Advance Directives No March 09, 2025 9:20am Do you have a Healthcare Power of Oiler Bander? No June 10, 2025 9:08am Do you have a Healthcare Power of Oiler Bander? No July 05, 2025 11:35pm Advance Directive Response Recorded Date/ Time Do you have a Healthcare Power of Oiler Bander? No June 10, 2025 9:08am Do you have a Healthcare Power of Oiler Bander? No July 05, 2025 11:35pm Advance Directives [...] Procedures CONSULT TO HEADACHE CLINIC OFFICE/OUTPATIENT [facility] 60-74 MINUTES Tara Gillette, THOM.LOOP TACKER [address] [place] [id number] Referral ID Status Reason Start Date Expiration Date Visits Requested Visits Authorized [id number] Authorized PCP Requested Referral 06/07/2022 06/07/2023 1 1 Specialty Diagnoses / Procedures Referred By Petra meek Referred To Contact MR IMAGING Diagnoses Post concussion syndrome Intractable acute post-traumatic headache Dizziness Cervicalgia Procedures MRI CERVICAL SPINE WO IVCON MRI SPINAL CANAL CERVICAL W/O CONTRAST MATRL Ivette Price Jr., [facility] [address] [phone] [facility] Referral ID Status Reason Start Date Expiration Date Visits Requested Visits Authorized [id number] Pending Review Auto-Generat ed Referral 12/07/2022 01/06/2024 1 1 Specialty Diagnoses / Procedures Referred By Petra meek Referred To Contact MR IMAGING Diagnoses Post concussion syndrome Intractable acute post-traumatic headache Dizziness Cervicalgia Procedures MRI BRAIN WO IVCON MRI BRAIN BRAIN STEM W/O CONTRAST MATERIAL Ivette Price Jr., MD [address] [facility] [address] [place] [address] Mr Imaging Referral ID Status Reason Start Date Expiration Date Visits Requested Visits Authorized [id number] Pending Review Auto-Generat ed Referral 12/07/2022 01/06/2024 1 1 Specialty Diagnoses / Procedures Referred By Contac t Referred To Contact CT IMAGING Diagnoses Soft tissue mass Procedures CT NECK SOFT TISSUE W IVCON CT SOFT TISSUE NECK W/CONTRAST MATERIAL Ivette Grimes MD [address] [place] [address] [address] [address] Referral ID Status Reason Start Date Expiration Date Visits Requested Visits Authorized [id number] Pending Review Auto-Generat ed Referral 02/28/2023 03/29/2024 1 1 Specialty Diagnoses / Procedures Referred By Contac t Referred To Contact [facility] Diagnoses Post concussive syndrome Procedures CONSULT TO SPEECH THERAPY OFFICE/OUTPATIENT [facility] 60-74 MINUTES Fatuma Beckford PA-C [address] [place] [address] [facility] [address] [place] [address] Referral ID Status Reason Start Date Expiration Date Visits Requested Visits Authorized [id number] Pending Review Auto-Generat ed Referral 05/17/2023 05/16/2024 1 1 Specialty Diagnoses / Procedures Referred By Contac t Referred To Contact Fatuma Beckford PA-C [address] [place] [address] Referral ID Status Reason Start Date Expiration Date Visits Re quested Visits Authorized [id number] Closed 1 1 Specialty Diagnoses / Procedures Referred By Contac t Referred To Contact Diagnoses Type 2 diabetes mellitus with microalbuminuria, with long-term current use of insulin (HCC) Ivette Grimes MD [address] [place] [address] Referral ID Status Reason Start Date Expiration Date Visits Re quested Visits Authorized [id number] Closed 1 1 Chief Complaint and Reason [...] 9:35pm HHS, 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, JOHN, 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 July 05, 2025 9:46pm Reason [...] 9:35pm HHS, 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, JOHN, 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 July 05, 2025 9:46pm HHS, 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, JOHN, 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 July 06, 2025 9:51am HHS, 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, JOHN, 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 July 07, 2025 7:19am Chief [...] 9:35pm HHS, 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, JOHN, 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] any alcohol or drug abuse patient.[facility] the event this information is protected by the Federal Confidentiality of Alcohol and Drug Abuse Patient Records regulations: The Federal rules restrict any use of the information to criminally investigate or prosecute any alcohol or drug abuse patient.[facility] Center[facility] the event this information is protected by the Federal Confidentiality of Alcohol and Drug Abuse Patient Records regulations: The Federal rules restrict any use of the information to criminally investigate or prosecute any alcohol or drug abuse patient.[facility] Center[facility] the event this information is protected by the Federal Confidentiality of Alcohol and Drug Abuse Patient Records regulations: The Federal rules restrict any use of the information to criminally investigate or prosecute any alcohol or drug abuse patient.[facility] CenterIn the event this information is protected by the Federal Confidentiality of Alcohol and Drug Abuse Patient Records regulations: The Federal rules restrict any use of the information to criminally investigate or prosecute any alcohol or drug abuse patient.[facility] CenterIn the event this information is protected by the Federal Confidentiality of Alcohol and Drug Abuse Patient Records regulations: The Federal rules restrict any use of the information to criminally investigate or prosecute any alcohol or drug abuse patient.[facility] CenterIn the event this information is protected by the Federal Confidentiality of Alcohol and Drug Abuse Patient Records regulations: The Federal rules restrict any use of the information to criminally investigate or prosecute any alcohol or drug abuse patient.[facility] CenterIn the event this information is protected by the Federal Confidentiality of Alcohol and Drug Abuse Patient Records regulations: The Federal rules restrict any use of the information to criminally investigate or prosecute any alcohol or drug abuse patient.[facility] CenterIn the event this information is protected by the Federal Confidentiality of Alcohol and Drug Abuse Patient Records regulations: The Federal rules restrict any use of the information to criminally investigate or prosecute any alcohol or drug abuse patient.[facility] CenterIn the event this information is protected by the Federal Confidentiality of Alcohol and Drug Abuse Patient Records regulations: The Federal rules restrict any use of the information to criminally investigate or prosecute any alcohol or drug abuse patient.[facility] CenterIn the event this information is protected by the Federal Confidentiality of Alcohol and Drug Abuse Patient Records regulations: The Federal rules restrict any use of the information to criminally investigate or prosecute any alcohol or drug abuse patient.[facility] CenterIn the event this information is protected by the Federal Confidentiality of Alcohol and Drug Abuse Patient Records regulations: The Federal rules restrict any use of the information to criminally investigate or prosecute any alcohol or drug abuse patient.[facility] CenterIn the event this information is protected by the Federal Confidentiality of Alcohol and Drug Abuse Patient Records regulations: The Federal rules restrict any use of the information to criminally investigate or prosecute any alcohol or drug abuse patient.[facility] CenterIn the event this information is protected by the Federal Confidentiality of Alcohol and Drug Abuse Patient Records regulations: The Federal rules restrict any use of the information to criminally investigate or prosecute any alcohol or drug abuse patient.[facility] CenterIn the event this information is protected by the Federal Confidentiality of Alcohol and Drug Abuse Patient Records regulations: The Federal rules restrict any use of the information to criminally investigate or prosecute any alcohol or drug abuse patient.[facility] CenterIn the event this information is protected by the Federal Confidentiality of Alcohol and Drug Abuse Patient Records regulations: The Federal rules restrict any use of the information to criminally investigate or prosecute any alcohol or drug abuse patient.[facility] CenterIn the event this information is protected by the Federal Confidentiality of Alcohol and Drug Abuse Patient Records regulations: The Federal rules restrict any use of the information to criminally investigate or prosecute any alcohol or drug abuse patient.[facility] CenterIn the event this information is protected by the Federal Confidentiality of Alcohol and Drug Abuse Patient Records regulations: The Federal rules restrict any use of the information to criminally investigate or prosecute any alcohol or drug abuse patient.[facility] CenterIn the event this information is protected by the Federal Confidentiality of Alcohol and Drug Abuse Patient Records regulations: The Federal rules restrict any use of the information to criminally investigate or prosecute any alcohol or drug abuse patient.[facility] CenterIn the event this information is protected by the Federal Confidentiality of Alcohol and Drug Abuse Patient Records regulations: The Federal rules restrict any use of the information to criminally investigate or prosecute any alcohol or drug abuse patient.[facility] CenterIn the event this information is protected by the Federal Confidentiality of Alcohol and Drug Abuse Patient Records regulations: The Federal rules restrict any use of the information to criminally investigate or prosecute any alcohol or drug abuse patient.[facility] CenterIn the event this information is protected by the Federal Confidentiality of Alcohol and Drug Abuse Patient Records regulations: The Federal rules restrict any use of the information to criminally investigate or prosecute any alcohol or drug abuse patient.[facility] CenterIn the event this information is protected by the Federal Confidentiality of Alcohol and Drug Abuse Patient Records regulations: The Federal rules restrict any use of the information to criminally investigate or prosecute any alcohol or drug abuse patient.[facility] CenterIn the event this information is protected by the Federal Confidentiality of Alcohol and Drug Abuse Patient Records regulations: The Federal rules restrict any use of the information to criminally investigate or prosecute any alcohol or drug abuse patient.[facility] the event this information is protected by the Federal Confidentiality of Alcohol and Drug Abuse Patient Records regulations: The Federal rules restrict any use of the information to criminally investigate or prosecute any alcohol or drug abuse patient.[facility] CenterIn the event this information is protected by the Federal Confidentiality of Alcohol and Drug Abuse Patient Records regulations: The Federal rules restrict any use of the information to criminally investigate or prosecute any alcohol or drug abuse patient.[facility] CenterIn the event this information is protected by the Federal Confidentiality of Alcohol and Drug Abuse Patient Records regulations: The Federal rules restrict any use of the information to criminally investigate or prosecute any alcohol or drug abuse patient.[facility]In the event this information is protected by the Federal Confidentiality of Alcohol and Drug Abuse Patient Records regulations: The Federal rules restrict any use of the information to criminally investigate or prosecute any alcohol or drug abuse patient.[facility] CenterIn the event this information is protected by the Federal Confidentiality of Alcohol and Drug Abuse Patient Records regulations: The Federal rules restrict any use of the information to criminally investigate or prosecute any alcohol or drug abuse patient.[facility] CenterIn the event this information is protected by the Federal Confidentiality of Alcohol and Drug Abuse Patient Records regulations: The Federal rules restrict any use of the information to criminally investigate or prosecute any alcohol or drug abuse patient.[facility] CenterIn the event this information is protected by the Federal Confidentiality of Alcohol and Drug Abuse Patient Records regulations: The Federal rules restrict any use of the information to criminally investigate or prosecute any alcohol or drug abuse patient.[facility] CenterIn the event this information is protected by the Federal Confidentiality of Alcohol and Drug Abuse Patient Records regulations: The Federal rules restrict any use of the information to criminally investigate or prosecute any alcohol or drug abuse patient.[facility] CenterIn the event this information is protected by the Federal Confidentiality of Alcohol and Drug Abuse Patient Records regulations: The Federal rules restrict any use of the information to criminally investigate or prosecute any alcohol or drug abuse patient.[facility] CenterIn the event this information is protected by the Federal Confidentiality of Alcohol and Drug Abuse Patient Records regulations: The Federal rules restrict any use of the information to criminally investigate or prosecute any alcohol or drug abuse patient.[facility] CenterIn the event this information is protected by the Federal Confidentiality of Alcohol and Drug Abuse Patient Records regulations: The Federal rules restrict any use of the information to criminally investigate or prosecute any alcohol or drug abuse patient.[facility] CenterIn the event this information is protected by the Federal Confidentiality of Alcohol and Drug Abuse Patient Records regulations: The Federal rules restrict any use of the information to criminally investigate or prosecute any alcohol or drug abuse patient.[facility] the event this information is protected by the Federal Confidentiality of Alcohol and Drug Abuse Patient Records regulations: The Federal rules restrict any use of the information to criminally investigate or prosecute any alcohol or drug abuse patient.[facility] CenterIn the event this information is protected by the Federal Confidentiality of Alcohol and Drug Abuse Patient Records regulations: The Federal rules restrict any use of the information to criminally investigate or prosecute any alcohol or drug abuse patient.[facility] CenterIn the event this information is [...] any alcohol or drug abuse patient.[facility] CenterIn the event this information is protected by the Federal Confidentiality of Alcohol and Drug Abuse Patient Records regulations: The Federal rules restrict any use of the information to criminally investigate or prosecute any alcohol or drug abuse patient.[facility] CenterIn the event this information is protected by the Federal Confidentiality of Alcohol and Drug Abuse Patient Records regulations: The Federal rules restrict any use of the information to criminally investigate or prosecute any alcohol or drug abuse patient.[facility] CenterIn the event this information is protected by the Federal Confidentiality of Alcohol and Drug Abuse Patient Records regulations: The Federal rules restrict any use of the information to criminally investigate or prosecute any alcohol or drug abuse patient.[facility] CenterIn the event this information is protected by the Federal Confidentiality of Alcohol and Drug Abuse Patient Records regulations: The Federal rules restrict any use of the information to criminally investigate or prosecute any alcohol or drug abuse patient.[facility] CenterIn the event this information is protected by the Federal Confidentiality of Alcohol and Drug Abuse Patient Records regulations: The Federal rules restrict any use of the information to criminally investigate or prosecute any alcohol or drug abuse patient.[facility] CenterIn the event this information is protected by the Federal Confidentiality of Alcohol and Drug Abuse Patient Records regulations: The Federal rules restrict any use of the information to criminally investigate or prosecute any alcohol or drug abuse patient.[facility] CenterIn the event this information is protected by the Federal Confidentiality of Alcohol and Drug Abuse Patient Records regulations: The Federal rules restrict any use of the information to criminally investigate or prosecute any alcohol or drug abuse patient.[facility] CenterIn the event this information is protected by the Federal Confidentiality of Alcohol and Drug Abuse Patient Records regulations: The Federal rules restrict any use of the information to criminally investigate or prosecute any alcohol or drug abuse patient.[facility] CenterIn the event this information is protected by the Federal Confidentiality of Alcohol and Drug Abuse Patient Records regulations: The Federal rules restrict any use of the information to criminally investigate or prosecute any alcohol or drug abuse patient.[facility] CenterIn the event this information is protected by the Federal Confidentiality of Alcohol and Drug Abuse Patient Records regulations: The Federal rules restrict any use of the information to criminally investigate or prosecute any alcohol or drug abuse patient.[facility] CenterIn the event this information is protected by the Federal Confidentiality of Alcohol and Drug Abuse Patient Records regulations: The Federal rules restrict any use of the information to criminally investigate or prosecute any alcohol or drug abuse patient.[facility] CenterIn the event this information is protected by the Federal Confidentiality of Alcohol and Drug Abuse Patient Records regulations: The Federal rules restrict any use of the information to criminally investigate or prosecute any alcohol or drug abuse patient.[facility] CenterIn the event this information is protected by the Federal Confidentiality of Alcohol and Drug Abuse Patient Records regulations: The Federal rules restrict any use of the information to criminally investigate or prosecute any alcohol or drug abuse patient.[facility] CenterIn the event this information is protected by the Federal Confidentiality of Alcohol and Drug Abuse Patient Records regulations: The Federal rules restrict any use of the information to criminally investigate or prosecute any alcohol or drug abuse patient.[facility] CenterIn the event this information is protected by the Federal Confidentiality of Alcohol and Drug Abuse Patient Records regulations: The Federal rules restrict any use of the information to criminally investigate or prosecute any alcohol or drug abuse patient.[facility] CenterIn the event this information is protected by the Federal Confidentiality of Alcohol and Drug Abuse Patient Records regulations: The Federal rules restrict any use of the information to criminally investigate or prosecute any alcohol or drug abuse patient.[facility] CenterIn the event this information is protected by the Federal Confidentiality of Alcohol and Drug Abuse Patient Records regulations: The Federal rules restrict any use of the information to criminally investigate or prosecute any alcohol or drug abuse patient.[facility] CenterIn the event this information is protected by the Federal Confidentiality of Alcohol and Drug Abuse Patient Records regulations: The Federal rules restrict any use of the information to criminally investigate or prosecute any alcohol or drug abuse patient.[facility] CenterIn the event this information is protected by the Federal Confidentiality of Alcohol and Drug Abuse Patient Records regulations: The Federal rules restrict any use of the information to criminally investigate or prosecute any alcohol or drug abuse patient.[facility] CenterIn the event this information is protected by the Federal Confidentiality of Alcohol and Drug Abuse Patient Records regulations: The Federal rules restrict any use of the information to criminally investigate or prosecute any alcohol or drug abuse patient.[facility] CenterIn the event this information is protected by the Federal Confidentiality of Alcohol and Drug Abuse Patient Records regulations: The Federal rules restrict any use of the information to criminally investigate or prosecute any alcohol or drug abuse patient.[facility]In the event this information is protected by the Federal Confidentiality of Alcohol and Drug Abuse Patient Records regulations: The Federal rules restrict any use of the information to criminally investigate or prosecute any alcohol or drug abuse patient.[facility] CenterIn the event this information is protected by the Federal Confidentiality of Alcohol and Drug Abuse Patient Records regulations: The Federal rules restrict any use of the information to criminally investigate or prosecute any alcohol or drug abuse patient.[facility] CenterIn the event this information is protected by the Federal Confidentiality of Alcohol and Drug Abuse Patient Records regulations: The Federal rules restrict any use of the information to criminally investigate or prosecute any alcohol or drug abuse patient.[facility]In the event this information is protected by the Federal Confidentiality of Alcohol and Drug Abuse Patient Records regulations: The Federal rules restrict any use of the information to criminally investigate or prosecute any alcohol or drug abuse patient.[facility] CenterIn the event this information is protected by the Federal Confidentiality of Alcohol and Drug Abuse Patient Records regulations: The Federal rules restrict any use of the information to criminally investigate or prosecute any alcohol or drug abuse patient.[facility] CenterIn the event this information is protected by the Federal Confidentiality of Alcohol and Drug Abuse Patient Records regulations: The Federal rules restrict any use of the information to criminally investigate or prosecute any alcohol or drug abuse patient.[facility] CenterIn the event this information is protected by the Federal Confidentiality of Alcohol and Drug Abuse Patient Records regulations: The Federal rules restrict any use of the information to criminally investigate or prosecute any alcohol or drug abuse patient.[facility]In the event this information is protected by the Federal Confidentiality of Alcohol and Drug Abuse Patient Records regulations: The Federal rules restrict any use of the information to criminally investigate or prosecute any alcohol or drug abuse patient.[facility] CenterIn the event this information is protected by the Federal Confidentiality of Alcohol and Drug Abuse Patient Records regulations: The Federal rules restrict any use of the information to criminally investigate or prosecute any alcohol or drug abuse patient.[facility] CenterIn the event this information is protected by the Federal Confidentiality of Alcohol and Drug Abuse Patient Records regulations: The Federal rules restrict any use of the information to criminally investigate or prosecute any alcohol or drug abuse patient.[facility]In the event this information is protected by the Federal Confidentiality of Alcohol and Drug Abuse Patient Records regulations: The Federal rules restrict any use of the information to criminally investigate or prosecute any alcohol or drug abuse patient.[facility] CenterIn the event this information is protected by the Federal Confidentiality of Alcohol and Drug Abuse Patient Records regulations: The Federal rules restrict any use of the information to criminally investigate or prosecute any alcohol or drug abuse patient.[facility] CenterIn the event this information is protected by the Federal Confidentiality of Alcohol and Drug Abuse Patient Records regulations: The Federal rules restrict any use of the information to criminally investigate or prosecute any alcohol or drug abuse patient.[facility]In the event this information is protected by the Federal Confidentiality of Alcohol and Drug Abuse Patient Records regulations: The Federal rules restrict any use of the information to criminally investigate or prosecute any alcohol or drug abuse patient.[facility]In the event this information is protected by the Federal Confidentiality of Alcohol and Drug Abuse Patient Records regulations: The Federal rules restrict any use of the information to criminally investigate or prosecute any alcohol or drug abuse patient.[facility]In the event this information is protected by the Federal Confidentiality of Alcohol and Drug Abuse Patient Records regulations: The Federal rules restrict any use of the information to criminally investigate or prosecute any alcohol or drug abuse patient.[facility]In the event this information is protected by the Federal Confidentiality of Alcohol and Drug Abuse Patient Records regulations: The Federal rules restrict any use of the information to criminally investigate or prosecute any alcohol or drug abuse patient.[facility]In the event this information is protected by the Federal Confidentiality of Alcohol and Drug Abuse Patient Records regulations: The Federal rules restrict any use of the information to criminally investigate or prosecute any alcohol or drug abuse patient.[facility]In the event this information is protected by the Federal Confidentiality of Alcohol and Drug Abuse Patient Records regulations: The Federal rules restrict any use of the information to criminally investigate or prosecute any alcohol or drug abuse patient.[facility]In the event this information is protected by the Federal Confidentiality of Alcohol and Drug Abuse Patient Records regulations: The Federal rules restrict any use of the information to criminally investigate or prosecute any alcohol or drug abuse patient.[facility]In the event this information is protected by the Federal Confidentiality of Alcohol and Drug Abuse Patient Records regulations: The Federal rules restrict any use of the information to criminally investigate or prosecute any alcohol or drug abuse patient.[facility]In the event this information is protected by the Federal Confidentiality of Alcohol and Drug Abuse Patient Records regulations: The Federal rules restrict any use of the information to criminally investigate or prosecute any alcohol or drug abuse patient.[facility]In the event this information is protected by the Federal Confidentiality of Alcohol and Drug Abuse Patient Records regulations: The Federal rules restrict any use of the information to criminally investigate or prosecute any alcohol or drug abuse patient.[facility] CenterIn the event this information is protected by the Federal Confidentiality of Alcohol and Drug Abuse Patient Records regulations: The Federal rules restrict any use of the information to criminally investigate or prosecute any alcohol or drug abuse patient.[facility] CenterIn the event this information is protected by the Federal Confidentiality of Alcohol and Drug Abuse Patient Records regulations: The Federal rules restrict any use of the information to criminally investigate or prosecute any alcohol or drug abuse patient.[facility] the event this information is protected by the Federal Confidentiality of Alcohol and Drug Abuse Patient Records regulations: The Federal rules restrict any use of the information to criminally investigate or prosecute any alcohol or drug abuse patient.[facility] CenterIn the event this information is protected by the Federal Confidentiality of Alcohol and Drug Abuse Patient Records regulations: The Federal rules restrict any use of the information to criminally investigate or prosecute any alcohol or drug abuse patient.[facility] CenterIn the event this information is [...] any alcohol or drug abuse patient.[facility] CenterIn the event this information is protected by the Federal Confidentiality of Alcohol and Drug Abuse Patient Records regulations: The Federal rules restrict any use of the information to criminally investigate or prosecute any alcohol or drug abuse patient.[facility] CenterIn the event this information is protected by the Federal Confidentiality of Alcohol and Drug Abuse Patient Records regulations: The Federal rules restrict any use of the information to criminally investigate or prosecute any alcohol or drug abuse patient.[facility] CenterIn the event this information is protected by the Federal Confidentiality of Alcohol and Drug Abuse Patient Records regulations: The Federal rules restrict any use of the information to criminally investigate or prosecute any alcohol or drug abuse patient.[facility] CenterIn the event this information is protected by the Federal Confidentiality of Alcohol and Drug Abuse Patient Records regulations: The Federal rules restrict any use of the information to criminally investigate or prosecute any alcohol or drug abuse patient.[facility]In the event this information is protected by the Federal Confidentiality of Alcohol and Drug Abuse Patient Records regulations: The Federal rules restrict any use of the information to criminally investigate or prosecute any alcohol or drug abuse patient.[facility] CenterIn the event this information is protected by the Federal Confidentiality of Alcohol and Drug Abuse Patient Records regulations: The Federal rules restrict any use of the information to criminally investigate or prosecute any alcohol or drug abuse patient.[facility] CenterIn the event this information is protected by the Federal Confidentiality of Alcohol and Drug Abuse Patient Records regulations: The Federal rules restrict any use of the information to criminally investigate or prosecute any alcohol or drug abuse patient.[facility]In the event this information is protected by the Federal Confidentiality of Alcohol and Drug Abuse Patient Records regulations: The Federal rules restrict any use of the information to criminally investigate or prosecute any alcohol or drug abuse patient.[facility]In the event this information is protected by the Federal Confidentiality of Alcohol and Drug Abuse Patient Records regulations: The Federal rules restrict any use of the information to criminally investigate or prosecute any alcohol or drug abuse patient.[facility]In the event this information is protected by the Federal Confidentiality of Alcohol and Drug Abuse Patient Records regulations: The Federal rules restrict any use of the information to criminally investigate or prosecute any alcohol or drug abuse patient.[facility] CenterIn the event this information is protected by the Federal Confidentiality of Alcohol and Drug Abuse Patient Records regulations: The Federal rules restrict any use of the information to criminally investigate or prosecute any alcohol or drug abuse patient.[facility]In the event this information is protected by the Federal Confidentiality of Alcohol and Drug Abuse Patient Records regulations: The Federal rules restrict any use of the information to criminally investigate or prosecute any alcohol or drug abuse patient.[facility]In the event this information is protected by the Federal Confidentiality of Alcohol and Drug Abuse Patient Records regulations: The Federal rules restrict any use of the information to criminally investigate or prosecute any alcohol or drug abuse patient.[facility] CenterIn the event this information is protected by the Federal Confidentiality of Alcohol and Drug Abuse Patient Records regulations: The Federal rules restrict any use of the information to criminally investigate or prosecute any alcohol or drug abuse patient.[facility] CenterIn the event this information is protected by the Federal Confidentiality of Alcohol and Drug Abuse Patient Records regulations: The Federal rules restrict any use of the information to criminally investigate or prosecute any alcohol or drug abuse patient.[facility] CenterIn the event this information is protected by the Federal Confidentiality of Alcohol and Drug Abuse Patient Records regulations: The Federal rules restrict any use of the information to criminally investigate or prosecute any alcohol or drug abuse patient.[facility] CenterIn the event this information is protected by the Federal Confidentiality of Alcohol and Drug Abuse Patient Records regulations: The Federal rules restrict any use of the information to criminally investigate or prosecute any alcohol or drug abuse patient.[facility] CenterIn the event this information is protected by the Federal Confidentiality of Alcohol and Drug Abuse Patient Records regulations: The Federal rules restrict any use of the information to criminally investigate or prosecute any alcohol or drug abuse patient.[facility] CenterIn the event this information is protected by the Federal Confidentiality of Alcohol and Drug Abuse Patient Records regulations: The Federal rules restrict any use of the information to criminally investigate or prosecute any alcohol or drug abuse patient.[facility] CenterIn the event this information is protected by the Federal Confidentiality of Alcohol and Drug Abuse Patient Records regulations: The Federal rules restrict any use of the information to criminally investigate or prosecute any alcohol or drug abuse patient.[facility] CenterIn the event this information is protected by the Federal Confidentiality of Alcohol and Drug Abuse Patient Records regulations: The Federal rules restrict any use of the information to criminally investigate or prosecute any alcohol or drug abuse patient.[facility] CenterIn the event this information is protected by the Federal Confidentiality of Alcohol and Drug Abuse Patient Records regulations: The Federal rules restrict any use of the information to criminally investigate or prosecute any alcohol or drug abuse patient.[facility] CenterIn the event this information is protected by the Federal Confidentiality of Alcohol and Drug Abuse Patient Records regulations: The Federal rules restrict any use of the information to criminally investigate or prosecute any alcohol or drug abuse patient.[facility] CenterIn the event this information is protected by the Federal Confidentiality of Alcohol and Drug Abuse Patient Records regulations: The Federal rules restrict any use of the information to criminally investigate or prosecute any alcohol or drug abuse patient.[facility] CenterIn the event this information is protected by the Federal Confidentiality of Alcohol and Drug Abuse Patient Records regulations: The Federal rules restrict any use of the information to criminally investigate or prosecute any alcohol or drug abuse patient.[facility] CenterIn the event this information is protected by the Federal Confidentiality of Alcohol and Drug Abuse Patient Records regulations: The Federal rules restrict any use of the information to criminally investigate or prosecute any alcohol or drug abuse patient.[facility] CenterIn the event this information is protected by the Federal Confidentiality of Alcohol and Drug Abuse Patient Records regulations: The Federal rules restrict any use of the information to criminally investigate or prosecute any alcohol or drug abuse patient.[facility] CenterIn the event this information is protected by the Federal Confidentiality of Alcohol and Drug Abuse Patient Records regulations: The Federal rules restrict any use of the information to criminally investigate or prosecute any alcohol or drug abuse patient.[facility] CenterIn the event this information is protected by the Federal Confidentiality of Alcohol and Drug Abuse Patient Records regulations: The Federal rules restrict any use of the information to criminally investigate or prosecute any alcohol or drug abuse patient.[facility] CenterIn the event this information is protected by the Federal Confidentiality of Alcohol and Drug Abuse Patient Records regulations: The Federal rules restrict any use of the information to criminally investigate or prosecute any alcohol or drug abuse patient.[facility] CenterIn the event this information is protected by the Federal Confidentiality of Alcohol and Drug Abuse Patient Records regulations: The Federal rules restrict any use of the information to criminally investigate or prosecute any alcohol or drug abuse patient.[facility] CenterIn the event this information is protected by the Federal Confidentiality of Alcohol and Drug Abuse Patient Records regulations: The Federal rules restrict any use of the information to criminally investigate or prosecute any alcohol or drug abuse patient.[facility] CenterIn the event this information is protected by the Federal Confidentiality of Alcohol and Drug Abuse Patient Records regulations: The Federal rules restrict any use of the information to criminally investigate or prosecute any alcohol or drug abuse patient.[facility] CenterIn the event this information is protected by the Federal Confidentiality of Alcohol and Drug Abuse Patient Records regulations: The Federal rules restrict any use of the information to criminally investigate or prosecute any alcohol or drug abuse patient.[facility] CenterIn the event this information is protected by the Federal Confidentiality of Alcohol and Drug Abuse Patient Records regulations: The Federal rules restrict any use of the information to criminally investigate or prosecute any alcohol or drug abuse patient.[facility] CenterIn the event this information is protected by the Federal Confidentiality of Alcohol and Drug Abuse Patient Records regulations: The Federal rules restrict any use of the information to criminally investigate or prosecute any alcohol or drug abuse patient.[facility] CenterIn the event this information is protected by the Federal Confidentiality of Alcohol and Drug Abuse Patient Records regulations: The Federal rules restrict any use of the information to criminally investigate or prosecute any alcohol or drug abuse patient.[facility] CenterIn the event this information is protected by the Federal Confidentiality of Alcohol and Drug Abuse Patient Records regulations: The Federal rules restrict any use of the information to criminally investigate or prosecute any alcohol or drug abuse patient.[facility] CenterIn the event this information is protected by the Federal Confidentiality of Alcohol and Drug Abuse Patient Records regulations: The Federal rules restrict any use of the information to criminally investigate or prosecute any alcohol or drug abuse patient.[facility] CenterIn the event this information is protected by the Federal Confidentiality of Alcohol and Drug Abuse Patient Records regulations: The Federal rules restrict any use of the information to criminally investigate or prosecute any alcohol or drug abuse patient.[facility] CenterIn the event this information is protected by the Federal Confidentiality of Alcohol and Drug Abuse Patient Records regulations: The Federal rules restrict any use of the information to criminally investigate or prosecute any alcohol or drug abuse patient.[facility] CenterIn the event this information is protected by the Federal Confidentiality of Alcohol and Drug Abuse Patient Records regulations: The Federal rules restrict any use of the information to criminally investigate or prosecute any alcohol or drug abuse patient.[facility] CenterIn the event this information is protected by the Federal Confidentiality of Alcohol and Drug Abuse Patient Records regulations: The Federal rules restrict any use of the information to criminally investigate or prosecute any alcohol or drug abuse patient.[facility] CenterIn the event this information is protected by the Federal Confidentiality of Alcohol and Drug Abuse Patient Records regulations: The Federal rules restrict any use of the information to criminally investigate or prosecute any alcohol or drug abuse patient.[facility] CenterIn the event this information is protected by the Federal Confidentiality of Alcohol and Drug Abuse Patient Records regulations: The Federal rules restrict any use of the information to criminally investigate or prosecute any alcohol or drug abuse patient.[facility] CenterIn the event this information is protected by the Federal Confidentiality of Alcohol and Drug Abuse Patient Records regulations: The Federal rules restrict any use of the information to criminally investigate or prosecute any alcohol or drug abuse patient.[facility] the event this information is protected by the Federal Confidentiality of Alcohol and Drug Abuse Patient Records regulations: The Federal rules restrict any use of the information to criminally investigate or prosecute any alcohol or drug abuse patient.[facility] CenterIn the event this information is protected by the Federal Confidentiality of Alcohol and Drug Abuse Patient Records regulations: The Federal rules restrict any use of the information to criminally investigate or prosecute any alcohol or drug abuse patient.[facility] CenterIn the event this information is [...] any alcohol or drug abuse patient.[facility] CenterIn the event this information is protected by the Federal Confidentiality of Alcohol and Drug Abuse Patient Records regulations: The Federal rules restrict any use of the information to criminally investigate or prosecute any alcohol or drug abuse patient.[facility] CenterIn the event this information is protected by the Federal Confidentiality of Alcohol and Drug Abuse Patient Records regulations: The Federal rules restrict any use of the information to criminally investigate or prosecute any alcohol or drug abuse patient.[facility] CenterIn the event this information is protected by the Federal Confidentiality of Alcohol and Drug Abuse Patient Records regulations: The Federal rules restrict any use of the information to criminally investigate or prosecute any alcohol or drug abuse patient.[facility] CenterIn the event this information is protected by the Federal Confidentiality of Alcohol and Drug Abuse Patient Records regulations: The Federal rules restrict any use of the information to criminally investigate or prosecute any alcohol or drug abuse patient.[facility] CenterIn the event this information is protected by the Federal Confidentiality of Alcohol and Drug Abuse Patient Records regulations: The Federal rules restrict any use of the information to criminally investigate or prosecute any alcohol or drug abuse patient.[facility] CenterIn the event this information is protected by the Federal Confidentiality of Alcohol and Drug Abuse Patient Records regulations: The Federal rules restrict any use of the information to criminally investigate or prosecute any alcohol or drug abuse patient.[facility] CenterIn the event this information is protected by the Federal Confidentiality of Alcohol and Drug Abuse Patient Records regulations: The Federal rules restrict any use of the information to criminally investigate or prosecute any alcohol or drug abuse patient.[facility] CenterIn the event this information is protected by the Federal Confidentiality of Alcohol and Drug Abuse Patient Records regulations: The Federal rules restrict any use of the information to criminally investigate or prosecute any alcohol or drug abuse patient.[facility] CenterIn the event this information is protected by the Federal Confidentiality of Alcohol and Drug Abuse Patient Records regulations: The Federal rules restrict any use of the information to criminally investigate or prosecute any alcohol or drug abuse patient.[facility] CenterIn the event this information is protected by the Federal Confidentiality of Alcohol and Drug Abuse Patient Records regulations: The Federal rules restrict any use of the information to criminally investigate or prosecute any alcohol or drug abuse patient.[facility] CenterIn the event this information is protected by the Federal Confidentiality of Alcohol and Drug Abuse Patient Records regulations: The Federal rules restrict any use of the information to criminally investigate or prosecute any alcohol or drug abuse patient.[facility] CenterIn the event this information is protected by the Federal Confidentiality of Alcohol and Drug Abuse Patient Records regulations: The Federal rules restrict any use of the information to criminally investigate or prosecute any alcohol or drug abuse patient.[facility] CenterIn the event this information is protected by the Federal Confidentiality of Alcohol and Drug Abuse Patient Records regulations: The Federal rules restrict any use of the information to criminally investigate or prosecute any alcohol or drug abuse patient.[facility] CenterIn the event this information is protected by the Federal Confidentiality of Alcohol and Drug Abuse Patient Records regulations: The Federal rules restrict any use of the information to criminally investigate or prosecute any alcohol or drug abuse patient.[facility] CenterIn the event this information is protected by the Federal Confidentiality of Alcohol and Drug Abuse Patient Records regulations: The Federal rules restrict any use of the information to criminally investigate or prosecute any alcohol or drug abuse patient.[facility] CenterIn the event this information is protected by the Federal Confidentiality of Alcohol and Drug Abuse Patient Records regulations: The Federal rules restrict any use of the information to criminally investigate or prosecute any alcohol or drug abuse patient.[facility] CenterIn the event this information is protected by the Federal Confidentiality of Alcohol and Drug Abuse Patient Records regulations: The Federal rules restrict any use of the information to criminally investigate or prosecute any alcohol or drug abuse patient.[facility] CenterIn the event this information is protected by the Federal Confidentiality of Alcohol and Drug Abuse Patient Records regulations: The Federal rules restrict any use of the information to criminally investigate or prosecute any alcohol or drug abuse patient.[facility] CenterIn the event this information is protected by the Federal Confidentiality of Alcohol and Drug Abuse Patient Records regulations: The Federal rules restrict any use of the information to criminally investigate or prosecute any alcohol or drug abuse patient.[facility] CenterIn the event this information is protected by the Federal Confidentiality of Alcohol and Drug Abuse Patient Records regulations: The Federal rules restrict any use of the information to criminally investigate or prosecute any alcohol or drug abuse patient.[facility] CenterIn the event this information is protected by the Federal Confidentiality of Alcohol and Drug Abuse Patient Records regulations: The Federal rules restrict any use of the information to criminally investigate or prosecute any alcohol or drug abuse patient.[facility] CenterIn the event this information is protected by the Federal Confidentiality of Alcohol and Drug Abuse Patient Records regulations: The Federal rules restrict any use of the information to criminally investigate or prosecute any alcohol or drug abuse patient.[facility] CenterIn the event this information is protected by the Federal Confidentiality of Alcohol and Drug Abuse Patient Records regulations: The Federal rules restrict any use of the information to criminally investigate or prosecute any alcohol or drug abuse patient.[facility] CenterIn the event this information is protected by the Federal Confidentiality of Alcohol and Drug Abuse Patient Records regulations: The Federal rules restrict any use of the information to criminally investigate or prosecute any alcohol or drug abuse patient.[facility] CenterIn the event this information is protected by the Federal Confidentiality of Alcohol and Drug Abuse Patient Records regulations: The Federal rules restrict any use of the information to criminally investigate or prosecute any alcohol or drug abuse patient.[facility] CenterIn the event this information is protected by the Federal Confidentiality of Alcohol and Drug Abuse Patient Records regulations: The Federal rules restrict any use of the information to criminally investigate or prosecute any alcohol or drug abuse patient.[facility] CenterIn the event this information is protected by the Federal Confidentiality of Alcohol and Drug Abuse Patient Records regulations: The Federal rules restrict any use of the information to criminally investigate or prosecute any alcohol or drug abuse patient.[facility] CenterIn the event this information is protected by the Federal Confidentiality of Alcohol and Drug Abuse Patient Records regulations: The Federal rules restrict any use of the information to criminally investigate or prosecute any alcohol or drug abuse patient.[facility] CenterIn the event this information is protected by the Federal Confidentiality of Alcohol and Drug Abuse Patient Records regulations: The Federal rules restrict any use of the information to criminally investigate or prosecute any alcohol or drug abuse patient.[facility] CenterIn the event this information is protected by the Federal Confidentiality of Alcohol and Drug Abuse Patient Records regulations: The Federal rules restrict any use of the information to criminally investigate or prosecute any alcohol or drug abuse patient.[facility] CenterIn the event this information is protected by the Federal Confidentiality of Alcohol and Drug Abuse Patient Records regulations: The Federal rules restrict any use of the information to criminally investigate or prosecute any alcohol or drug abuse patient.[facility] CenterIn the event this information is protected by the Federal Confidentiality of Alcohol and Drug Abuse Patient Records regulations: The Federal rules restrict any use of the information to criminally investigate or prosecute any alcohol or drug abuse patient.[facility] CenterIn the event this information is protected by the Federal Confidentiality of Alcohol and Drug Abuse Patient Records regulations: The Federal rules restrict any use of the information to criminally investigate or prosecute any alcohol or drug abuse patient.[facility] CenterIn the event this information is protected by the Federal Confidentiality of Alcohol and Drug Abuse Patient Records regulations: The Federal rules restrict any use of the information to criminally investigate or prosecute any alcohol or drug abuse patient.[facility] CenterIn the event this information is protected by the Federal Confidentiality of Alcohol and Drug Abuse Patient Records regulations: The Federal rules restrict any use of the information to criminally investigate or prosecute any alcohol or drug abuse patient.[facility] CenterIn the event this information is protected by the Federal Confidentiality of Alcohol and Drug Abuse Patient Records regulations: The Federal rules restrict any use of the information to criminally investigate or prosecute any alcohol or drug abuse patient.[facility] CenterIn the event this information is protected by the Federal Confidentiality of Alcohol and Drug Abuse Patient Records regulations: The Federal rules restrict any use of the information to criminally investigate or prosecute any alcohol or drug abuse patient.[facility] CenterIn the event this information is protected by the Federal Confidentiality of Alcohol and Drug Abuse Patient Records regulations: The Federal rules restrict any use of the information to criminally investigate or prosecute any alcohol or drug abuse patient.[facility] CenterIn the event this information is protected by the Federal Confidentiality of Alcohol and Drug Abuse Patient Records regulations: The Federal rules restrict any use of the information to criminally investigate or prosecute any alcohol or drug abuse patient.[facility] CenterIn the event this information is protected by the Federal Confidentiality of Alcohol and Drug Abuse Patient Records regulations: The Federal rules restrict any use of the information to criminally investigate or prosecute any alcohol or drug abuse patient.[facility] CenterIn the event this information is protected by the Federal Confidentiality of Alcohol and Drug Abuse Patient Records regulations: The Federal rules restrict any use of the information to criminally investigate or prosecute any alcohol or drug abuse patient.[facility] CenterIn the event this information is protected by the Federal Confidentiality of Alcohol and Drug Abuse Patient Records regulations: The Federal rules restrict any use of the information to criminally investigate or prosecute any alcohol or drug abuse patient.[facility] CenterIn the event this information is protected by the Federal Confidentiality of Alcohol and Drug Abuse Patient Records regulations: The Federal rules restrict any use of the information to criminally investigate or prosecute any alcohol or drug abuse patient.[facility] CenterIn the event this information is protected by the Federal Confidentiality of Alcohol and Drug Abuse Patient Records regulations: The Federal rules restrict any use of the information to criminally investigate or prosecute any alcohol or drug abuse patient.[facility] CenterIn the event this information is protected by the Federal Confidentiality of Alcohol and Drug Abuse Patient Records regulations: The Federal rules restrict any use of the information to criminally investigate or prosecute any alcohol or drug abuse patient.[facility] CenterIn the event this information is protected by the Federal Confidentiality of Alcohol and Drug Abuse Patient Records regulations: The Federal rules restrict any use of the information to criminally investigate or prosecute any alcohol or drug abuse patient.[facility] CenterIn the event this information is protected by the Federal Confidentiality of Alcohol and Drug Abuse Patient Records regulations: The Federal rules restrict any use of the information to criminally investigate or prosecute any alcohol or drug abuse patient.[facility] CenterIn the event this information is protected by the Federal Confidentiality of Alcohol and Drug Abuse Patient Records regulations: The Federal rules restrict any use of the information to criminally investigate or prosecute any alcohol or drug abuse patient.[facility] Reason for Visit (unrecogniz ed section and content) Reason Comments Follow Up Specialty Diagnoses / Procedures Referred By Contac t Referred To Contact Family Medicine / FAMILY MEDICINE Diagnoses Follow up. Procedures 4C EST Ivette Grimes MD [address] [place] [address] Ivette Grimes MD [address] [place] [address] Referral ID Status Reason Start Date Expiration Date V isits Requested Visits Authorized [id number] Pending Review 01/31/2023 05/01/2023 1 1 Reason Comments New Patient Specialty Diagnoses / Procedures Referred By Contac t Referred To Contact Pain Management Diagnoses Chronic left shoulder pain Procedures CONSULT TO PAIN MGT OFFICE/OUTPATIENT NEW HIGH MDM 60-74 MINUTES Ivette Grimes MD [address] [place] [address] Referral ID Status Reason Start Date Expiration Date V isits Requested Visits Authorized [id number] Closed PCP Requested Referral 01/22/2022 01/22/2023 1 [...] migrainosus Procedures CONSULT TO NEUROLOGY OFFICE/OUTPATIENT NEW [facility] MDM 60-74 MINUTES Ivette Grimes MD [address] [place] [address] Referral ID Status Reason Start Date Expiration Date V isits Requested Visits Authorized [id number] Closed PCP Requested Referral 12/25/2021 12/25/2022 1 1 Reason Onset Date Comments Refill Request 04/16/2022 Reason Comments Follow Up shoulder pain, switc h medication back to gabapentin Specialty Diagnoses / Procedures Referred By Contac t Referred To Contact Family Practice / FAMILY MEDICINE Diagnoses Follow-up exam follow up Procedures OFFICE/OUTPATIENT ESTABLISHED [facility] MDM 40-54 MIN MYC OFFICE VISIT Ivette Grimes MD [address] [place] [address] Ivette Grimes MD [address] [place] [address] Referral ID Status Reason Start Date Expiration Date Visits Re quested Visits Authorized [id number] Closed 04/17/2022 11/03/2022 1 1 Reason Onset [...] PROCEDURE 20 Elle Rasheed MD [address] [address] Elle Rasheed MD [address] [place] [address] Referral ID Status Reason Start Date Expiration Date Visits Re quested Visits Authorized [id number] Closed 05/10/2022 06/10/2022 1 1 Reason Comments Procedure Follow Up Reason Comments Follow Up Specialty Diagnoses / Procedures Referred By Contac t Referred To Contact Pain Management / PAIN MANAGEMENT Diagnoses OV & follow up inj Procedures OFFICE/OUTPATIENT [facility] 30-39 MIN EST PATIENT Elle Rasheed MD [address] [address] Adelina Marinelli, THOM.[facility] [address] [place] [address] Referral ID Status Reason Start Date Expiration Date Visits Re quested Visits Authorized [id number] Closed 11/04/2021 11/03/2022 1 1 Reason Comments Appointment Reason Comments Headache follow up Specialty Diagnoses / Procedures Referred By Contac t Referred To Contact Neurology Diagnoses Migraine with aura, not intractable, without status migrainosus Procedures CONSULT TO NEUROLOGY OFFICE/OUTPATIENT [facility] 60-74 MINUTES Ivette Grimes MD [address] [place] [address] Reason Comments Orders Reason Onset Date Comments Refill Request 06/22/2022 Reason Onset Date Comments Refill Request 07/10/2022 Reason Comments Patient Update Injection questions Reason Comments Chronic Migraine X 6-7 years Specialty Diagnoses / Procedures Referred By Contac t Referred To Contact Diagnoses Intractable migraine without aura and without status migrainosus Procedures CONSULT TO HEADACHE CLINIC OFFICE/OUTPATIENT [facility] MDM 60-74 MINUTES Tara Gillette, THOM.LOOP TACKER [address] [place] [address] Referral ID Status Reason Start Date Expiration Date V isits Requested Visits Authorized [id number] Closed PCP Requested Referral 06/07/2022 06/07/2023 1 [...] Diagnoses Follow-up exam follow up Procedures OFFICE/OUTPATIENT [facility] MDM 40-54 MIN MYC OFFICE VISIT Ivette Grimes MD [address] [place] [address] Ivette Grimes MD [address] [place] [address] Referral ID Status Reason Start Date Expiration Date V isits Requested Visits Authorized [id number] Authorized 04/17/2022 11/03/2022 99 99 Reason Comments Patient Update Reason Comments Follow Up Acute Visit Reason Comments Fatigue Specialty Diagnoses / Procedures Referred By Petra meek Referred To Contact Family Medicine / FAMILY MEDICINE Diagnoses dizzy-follow up from virtual with Dr Bianchi 09/03 Procedures 4C EST Ivette Grimes MD [address] [place] [address] Ivette Grimes MD [address] [place] [address] Referral ID Status Reason Start Date Expiration Date Visits Re quested Visits Authorized [id number] Closed 09/04/2022 12/03/2022 1 1 Reason Onset [...] MINUTES VIDEO PSYC/PSYL NEW Self Grace Coronel, FILTER FILLER.LOOP TACKER [address] [place] [address] Referral ID Status Reason Start Date Expiration Date Visits Re quested Visits Authorized [id number] Closed 11/04/2021 11/03/2022 1 1 Reason Comments Follow Up Pain (Shoulder Pain) Left Specialty Diagnoses / Procedures Referred By Contac t Referred To Contact Pain Management / PAIN MANAGEMENT Diagnoses Examination wants to discuss options since Insurance denied RFA Procedures OFFICE/OUTPATIENT ESTABLISHED MOD MDM 30-39 MIN EST PATIENT Self Adelina Marinelli, FILTER FILLER.LOOP TACKER [address] [place] [address] Referral ID Status Reason Start Date Expiration Date V isits Requested Visits Authorized [id number] Closed Patient Cleared - Admin/Chairm an/Director advise to proceed 11/08/2022 02/06/2023 1 1 Reason Onset Date Comments Refill Request 11/15/2022 Reason Onset Date Comments Refill Request 11/23/2022 Reason Comments ER F/U Reason Comments Patient Question [facility] appointment on 12/05/22 Reason Comments Acute Visit [...] referral botox 200 units every 90 days [id number] Karen Bansal, FILTER FILLER.LOOP TACKER [address] [place] [address] Neur Adult Main [address] [phone] Referral ID Status Reason Start Date Expiration Date V isits Requested Visits Authorized [id number] Authorized 08/15/2022 01/30/2023 2 2 Reason Comments [...] Referred By Contac t Referred To Contact PHOTOGRAMMETRIC TECHNICIAN Diagnoses annual Procedures EST I ANNUAL PATIENT Self Galina Camacho MD [address] [place] [address] Referral ID Status Reason Start Date Expiration Date V isits Requested Visits Authorized [id number] Closed Patient Cleared - INN Insurance Found [...] on 04/22/23 Fatuma Beckford PA-C [address] [facility] [place] [address] Neur Adult Main [address] [phone] Referral ID Status Reason Start Date Expiration Date V isits Requested Visits Authorized [id number] Authorized 04/02/2023 04/02/2024 4 4 Reason Comments Pt requesting Boot Reason Comments Follow Up Reason Comments Follow Up MRI results. Reason Onset Date Comments Refill Request 06/08/2023 Reason Comments New Bone spurs Pain Bone spurs Reason Onset Date Comments Refill Request 07/05/2023 Reason Comments Forms [facility] preventative car e Reason Onset Date [...] Specialty Diagnoses / Procedures [facility]erred To Contact ADULT NEUROLOGY Diagnoses Intractable chronic migraine without aura Procedures BOTULINUM TOXIN A PER 1 UNIT CHEMODERVATE FACIAL/TRIGEM/CERV MUSC MIGRAINE Renewal botox 200 units every 90 days. Patient due on 04/22/23 Fatuma Beckford PA-C [address] [place] [address] [place] [address] Neur Adult Main [address] [place] [address] Referral ID Status Reason Start Date Expiration Date Visits Re quested Visits Authorized [id number] Closed 04/02/2023 04/02/2024 4 4 Reason Comments [...] CHEMODERVATE FACIAL/TRIGEM/CERV MUSC MIGRAINE Fatuma Beckford PA-C [address] [place] [address] [place] [address] [address] [place] [address] [place] [address] Referral ID Status Reason Start Date Expiration Date V isits Requested Visits Authorized [id number] Authorized 07/01/2024 11/03/2024 99 99 Reason Onset [...] Onset Date Comments Transition Of Care 07/09/2025 [facility] Discharge 07/07/25 Reason Comments Hospital F/U [facility] DX Sepsis, UTI D /C 07/07 Care Teams (unrecognized sec tion and content) 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 Relationship Specialty Start Date End Date Ivette Grimes MD [address] [place], [place] [id number] PCP - General Family Practice 11/21/13 Jagdish Carballo [facility] [address] [place], [place] [address] Pharmacist Pharmacy 05/19/20 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 Relationship Specialty Start Date End [place]imes [place] [address] [place], [place] [id number] PCP - General Family Practice 11/21/13 Jagdish Carballo [facility] [address] [place], [place] [id number] Pharmacist Pharmacy 05/19/20 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 Relationship Specialty Start Date End Date Ivette Grimes MD [address] [place] [address] PCP - General Family Practice 11/21/13 [facility] [address] [place] [address] Pharmacist Pharmacy 05/19/20 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 Relationship Specialty Start Date End Date Ivette Grimes MD [address] [place] [address] PCP - General Family Practice 11/21/13 [facility] [address] [place] [address] Pharmacist Pharmacy 05/19/20 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 Relationship Specialty Start Date End Date Ivette Grimes MD [address] [place] [address] PCP - General Family Practice 11/21/13 [facility] [address] [place] [address] Pharmacist Pharmacy 05/19/20 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 Relationship Specialty Start Date End Date Ivette Grimes MD [address] [place] [address] PCP - General Family Practice 11/21/13 [facility] [address] [place] [address] Pharmacist Pharmacy 05/19/20 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 Relationship Specialty Start Date End Date Ivette Grimes MD [address] [place] [address] PCP - General Family Practice 11/21/13 [facility] [address] [place] [address] Pharmacist Pharmacy 05/19/20 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 Relationship Specialty Start Date End Date Ivette Grimes MD [address] [place] [address] PCP - General Family Practice 11/21/13 Jagdish Carballo, [facility] [address] [place] [address] Pharmacist Pharmacy 05/19/20 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 Relationship Specialty Start Date End Date Ivette Grimes MD [address] [place] [address] PCP - General Family Practice 11/21/13 Jagdish Carballo, [facility] [address] [place] [address] Pharmacist Pharmacy 05/19/20 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 Relationship Specialty Start Date End Date Ivette Grimes MD [address] [place] [address] PCP - General Family Practice 11/21/13 Jagdish Carballo, [facility] [address] [place] [address] Pharmacist Pharmacy 05/19/20 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 Relationship Specialty Start Date End Date Ivette Grimes MD [address] [place] [address] PCP - General Family Practice 11/21/13 Jagdish Carballo, [facility] [address] [place] [address] Pharmacist Pharmacy 05/19/20 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 Relationship Specialty Start Date End Date Ivette Grimes MD [address] [place] [address] PCP - General Family Practice 11/21/13 Jagdish Carballo, [facility] [address] [place] [address] Pharmacist Pharmacy 05/19/20 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 Relationship Specialty Start Date End Date Ivette Grimes MD [address] [place] [address] PCP - General Family Practice 11/21/13 [facility] [address] [place] [address] Pharmacist Pharmacy 05/19/20 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 Relationship Specialty Start Date End Date Ivette Grimes MD [address] [place] [address] PCP - General Family Practice 11/21/13 [facility] [address] [place] [address] Pharmacist Pharmacy 05/19/20 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 Relationship Specialty Start Date End Date Ivette Grimes MD [address] [place] [address] PCP - General Family Practice 11/21/13 [facility] [address] [place] [address] Pharmacist Pharmacy 05/19/20 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 Relationship Specialty Start Date End Date Ivette Grimes MD [address] [place] [address] PCP - General Family Practice 11/21/13 [facility] [address] [place] [address] Pharmacist Pharmacy 05/19/20 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 Relationship Specialty Start Date End Date Ivette Grimes MD [address] [place] [address] PCP - General Family Practice 11/21/13 Jagdish Carballo, [facility] [address] [place] [address] Pharmacist Pharmacy 05/19/20 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 Relationship Specialty Start Date End Date Ivette Grimes MD [address] [place] [address] PCP - General Family Practice 11/21/13 [facility] [address] [place] [address] Pharmacist Pharmacy 05/19/20 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 Relationship Specialty Start Date End Date Ivette Grimes MD [address] [place] [address] PCP - General Family Practice 11/21/13 [facility] [address] [place] [address] Pharmacist Pharmacy 05/19/20 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 Relationship Specialty Start Date End Date Ivette Grimes MD [address] [place] [address] PCP - General Family Medicine 11/21/13 [facility] [address] [place] [address] Pharmacist Pharmacy 05/19/20 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 Relationship Specialty Start Date End Date Ivette Grimes MD [address] [place] [address] PCP - General Family Medicine 11/21/13 [facility] [address] [place] [address] Pharmacist Pharmacy 05/19/20 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 Relationship Specialty Start Date End Date Ivette Grimes MD [address] [place] [address] PCP - General Family Medicine 11/21/13 [facility] [address] [place] [address] Pharmacist Pharmacy 05/19/20 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 Relationship Specialty Start Date End Date Ivette Grimes MD [address] [place] [address] PCP - General Family Medicine 11/21/13 [facility] [address] [place] [address] Pharmacist Pharmacy 05/19/20 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 Relationship Specialty Start Date End Date Ivette Grimes MD [address] [place] [address] PCP - General Family Medicine 11/21/13 [facility] [address] [place] [address] Pharmacist Pharmacy 05/19/20 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 Relationship Specialty Start Date End Date Ivette Grimes MD [address] [place] [address] PCP - General Family Medicine 11/21/13 [facility] [address] [place] [address] Pharmacist Pharmacy 05/19/20 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 Relationship Specialty Start Date End Date Ivette Grimes MD [address] [place] [address] PCP - General Family Medicine 11/21/13 Jagdish Carballo, [facility] [address] [place] [address] Pharmacist Pharmacy 05/19/20 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 Relationship Specialty Start Date End Date Ivette Grimes MD [address] [place] [address] PCP - General Family Medicine 11/21/13 MartinhenryJagdish, [facility] [address] [place] [address] Pharmacist Pharmacy 05/19/20 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 Relationship Specialty Start Date End Date Ivette Grimes MD [address] [place] [address] PCP - General Family Medicine 11/21/13 Jagdish Carballo, [facility] [address] [place] [address] Pharmacist Pharmacy 05/19/20 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 Relationship Specialty Start Date End Date Ivette Grimes MD [address] [place] [address] PCP - General Family Medicine 11/21/13 [facility] [address] [place] [address] Pharmacist Pharmacy 05/19/20 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 Relationship Specialty Start Date End Date Ivette Grimes MD [address] [place] [address] PCP - General Family Medicine 11/21/13 Martinhenry Jagdish, [facility] [address] [place] [address] Pharmacist Pharmacy 05/19/20 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 Relationship Specialty Start Date End Date Ivette Grimes MD [address] [place] [address] PCP - General Family Medicine 11/21/13 Jagdish Carballo, [facility] [address] [place] [address] Pharmacist Pharmacy 05/19/20 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 Relationship Specialty Start Date End Date Ivette Grimes MD [address] [place] [address] PCP - General Family Medicine 11/21/13 [facility] [address] [place] [address] Pharmacist Pharmacy 05/19/20 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 Relationship Specialty Start Date End Date Ivette Grimes MD [address] [place] [address] PCP - General Family Medicine 11/21/13 [facility] [address] [place] [address] Pharmacist Pharmacy 05/19/20 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 Relationship Specialty Start Date End Date Ivette Grimes MD [address] [place] [address] PCP - General Family Medicine 11/21/13 [facility]henry [facility] [address] [place] [address] Pharmacist Pharmacy 05/19/20 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 Relationship Specialty Start Date End Date Ivette Grimes MD [address] [place] [address] PCP - General Family Medicine 11/21/13 [facility] [address] [place] [address] Pharmacist Pharmacy 05/19/20 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 Relationship Specialty Start Date End Date Ivette Grimes MD [address] [place] [address] PCP - General Family Medicine 11/21/13 [facility] [address] [place] [address] Pharmacist Pharmacy 05/19/20 Jemal Orozco MD [address] [place] [address] Cardiology 10/31/22 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 Relationship Specialty Start Date End Date Ivette Grimes MD [address] [place] [address] PCP - General Family Medicine 11/21/13 [facility] [address] [place] [address] Pharmacist Pharmacy 05/19/20 Jemal Orozco MD [address] [place] [address] Cardiology 10/31/22 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 Relationship Specialty Start Date End Date Ivette Grimes MD [address] [place] [address] PCP - General Family Medicine 11/21/13 [facility] [address] [place] [address] Pharmacist Pharmacy 05/19/20 Jemal Orozco MD [address] [place] [address] Cardiology 10/31/22 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 Relationship Specialty Start Date End Date Ivette Grimes MD [address] [place] [address] PCP - General Family Medicine 11/21/13 [facility] [address] [place] [address] Pharmacist Pharmacy 05/19/20 Jemal Orozco MD [address] [place] [address] Cardiology 10/31/22 Team Status: Active Member Role [...] Primary Care Provider, Referring Provider Active Dr. Biibana Rehman DC Attending Provider Active Team Status: [...] Dr. Tod Callejas MD Emergency Provider Active 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 Relationship Specialty Start Date End Date Ivette Grimes MD [address] [place] [address] PCP - General Family Medicine 11/21/13 Jagdish Carballo RPh [address] [place], [place] [address] Pharmacist Pharmacy 05/19/20 Jemal Orozco MD [address] [place] [address] Cardiology 10/31/22 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 Relationship Specialty Start Date End Date Ivette Grimes MD [address] [place] [address] PCP - General Family Medicine 11/21/13 [facility] [address] [place] [address] Pharmacist Pharmacy 05/19/20 Jemal Orozco MD [address] [place], [place] [id number] Cardiology 10/31/22 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 Relationship Specialty Start Date End Date Ivette Grimes MD [address] [place] [address] PCP - General Family Medicine 11/21/13 [facility] [address] [place] [address] Pharmacist Pharmacy 05/19/20 Jemal Orozco MD [address] [place] [address] Cardiology 10/31/22 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 Relationship Specialty Start Date End Date Ivette Grimes MD [address] [place] [address] PCP - General Family Medicine 11/21/13 [facility] [address] [place] [address] Pharmacist Pharmacy 05/19/20 Jemal Orozco MD [address] [place] [address] Cardiology 10/31/22 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 Relationship Specialty Start Date End Date Ivette Grimes MD [address] [place] [address] PCP - General Family Medicine 11/21/13 Jagdish Carballo, [facility] [address] [place] [address] Pharmacist Pharmacy 05/19/20 Jemal Orozco MD [address] [place] [address] Cardiology 10/31/22 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 Relationship Specialty Start Date End Date Ivette Grimes MD [address] [place] [address] PCP - General Family Medicine 11/21/13 [facility] [address] [place] [address] Pharmacist Pharmacy 05/19/20 Jemal Orozco MD [address] [place] [address] Cardiology 10/31/22 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 Relationship Specialty Start Date End Date Ivette Grimes MD [address] [place] [address] PCP - General Family Medicine 11/21/13 [facility] [address] [place] [address] Pharmacist Pharmacy 05/19/20 Jemal Orozco MD [address] [place] [address] Cardiology 10/31/22 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 Relationship Specialty Start Date End Date Ivette Grimes MD [address] [place] [address] PCP - General Family Medicine 11/21/13 Jagdish Carballo, [facility] [address] [place] [address] Pharmacist Pharmacy 05/19/20 Jemal Orozco MD [address] [place] [address] Cardiology 10/31/22 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 Relationship Specialty Start Date End Date Ivette Grimes MD [address] [place] [address] PCP - General Family Medicine 11/21/13 [facility] [address] [place] [address] Pharmacist Pharmacy 05/19/20 Jemal Orozco MD [address] [place] [address] Cardiology 10/31/22 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 Relationship Specialty Start Date End Date Ivette Grimes MD [address] [place] [address] PCP - General Family Medicine 11/21/13 [facility] [address] [place] [address] Pharmacist Pharmacy 05/19/20 Jemal Orozco MD [address] [place] [address] Cardiology 10/31/22 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 Relationship Specialty Start Date End Date Ivette Grimes MD [address] [place] [address] PCP - General Family Medicine 11/21/13 [facility] [address] [place] [address] Pharmacist Pharmacy 05/19/20 Jemal Orozco MD [address] [place] [address] Cardiology 10/31/22 Team Status: Inactive Member Role Status Dates Dr. Ivette Grimes MD Primary Care Provider, Referring Provider Active Dr. Vin Montes MD Attending Provider Active Team Status: Inactive Member Role Status Dates Dr. Ivette Grimes MD Primary Care Provider, Referring Provider Active Jesenia Mercado ADVANCED PRACTICE NURSE, ADVANCED PRACTICE NURSE-C Attending Provider Active Team Status: Inactive Member [...] Pearl MD Attending Provider, Emergency Provider Active 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 Relationship Specialty Start Date End Date Ivette Grimes MD [address] [place] [address] PCP - General Family Medicine 11/21/13 [facility] [address] [place] [address] Pharmacist Pharmacy 05/19/20 Jemal Orozco MD [address] [place], [place] [id number] Cardiology 10/31/22 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 Relationship Specialty Start Date End Date Ivette Grimes MD [address] [place] [address] PCP - General Family Medicine 11/21/13 [facility] [address] [place] [address] Pharmacist Pharmacy 05/19/20 Jemal Orozco MD [address] [place] [address] Cardiology 10/31/22 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 Relationship Specialty Start Date End Date Ivette Grimes MD [address] [place] [address] PCP - General Family Medicine 11/21/13 [facility] [address] [place] [address] Pharmacist Pharmacy 05/19/20 Jemal Orozco MD [address] [place], [place] [id number] Cardiology 10/31/22 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 Relationship Specialty Start Date End Date Ivette Grimes MD [address] [place] [address] PCP - General Family Medicine 11/21/13 [facility] [address] [place] [address] Pharmacist Pharmacy 05/19/20 Jemal Orozco MD [address] [place] [address] Cardiology 10/31/22 Team Status: Active Member Role Status Dates Dr. Ivette Grimes MD Primary Care Provider Active Adelina Marinelli ADVANCED PRACTICE NURSE, ADVANCED PRACTICE NURSE-C Attending Provider, Willian alvarez Provider Active 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 Relationship Specialty Start Date End Date Ivette Grimes MD [address] [place] [address] PCP - General Family Medicine 11/21/13 [facility] [address] [place] [address] Pharmacist Pharmacy 05/19/20 Jemal Orozco MD [address] [place] [address] Cardiology 10/31/22 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 Relationship Specialty Start Date End Date Ivette Grimes MD [address] [place] [address] PCP - General Family Medicine 11/21/13 [facility] [address] [place] [address] Pharmacist Pharmacy 05/19/20 Jemal Orozco MD [address] [place] [address] Cardiology 10/31/22 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 Relationship Specialty Start Date End Date Ivette Grimes MD [address] [place] [address] PCP - General Family Medicine 11/21/13 [facility] [address] [place] [address] Pharmacist Pharmacy 05/19/20 Jemal Orozco MD [address] [place] [address] Cardiology 10/31/22 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 Relationship Specialty Start Date End Date Ivette Grimes MD [address] [place] [address] PCP - General Family Medicine 11/21/13 [facility] [address] [place] [address] Pharmacist Pharmacy 05/19/20 Jemal Orozco MD [address] [place] [address] Cardiology 10/31/22 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 Relationship Specialty Start Date End Date Ivette Grimes MD [address] [place] [address] PCP - General Family Medicine 11/21/13 [facility] [address] [place] [address] Pharmacist Pharmacy 05/19/20 Jemal Orozco MD [address] [place], [place] [id number] Cardiology 10/31/22 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 Relationship Specialty Start Date End Date Ivette Grimes MD [address] [place], [place] 401431 PCP - General Family Medicine 11/21/13 [facility] [address] [place] [address] Pharmacist Pharmacy 05/19/20 Jemal Orozco MD [address] [place] [address] Cardiology 10/31/22 Team Status: Inactive Member Role Status Dates Dr. Ivette Grimes MD Primary Care Provider Active TETO MARY Attending Provider, Referring Pro vider Active Team Status: Inactive Member Role Status Dates Dr. Ivette Grimes MD Primary Care Provider Active Dr. Sam Pearl MD Emergency Provider Active 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 Relationship Specialty Start Date End Date Ivette Grimes MD [address] [place], [place] 687031 PCP - General Family Medicine 11/21/13 [facility] [address] [place] [address] Pharmacist Pharmacy 05/19/20 Jemal Orozco MD [address] [place], [place] [id number] Cardiology 10/31/22 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 Relationship Specialty Start Date End Date Ivette Grimes MD [address] [place] [address] PCP - General Family Medicine 11/21/13 Jagdish Carballo, [facility] [address] [place] [address] Pharmacist Pharmacy 05/19/20 Jemal Orozco MD [address] [place], [place] [phone] Cardiology 10/31/22 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 Relationship Specialty Start Date End Date Ivette Grimes MD [address] [place] [address] PCP - General Family Medicine 11/21/13 [facility] [address] [place] [address] Pharmacist Pharmacy 05/19/20 Jemal Orozco MD [address] [place], [place] [phone] Cardiology 10/31/22 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 Relationship Specialty Start Date End Date Ivette Grimes MD [address] [place] [address] PCP - General Family Medicine 11/21/13 [facility] [address] [place] [address] Pharmacist Pharmacy 05/19/20 Jemal Orozco MD [address] [place] [address] Cardiology 10/31/22 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 Relationship Specialty Start Date End Date Ivette Grimes MD [address] [place] [address] PCP - General Family Medicine 11/21/13 [facility] [address] [place] [address] Pharmacist Pharmacy 05/19/20 Jemal Orozco MD [address] [place], [place] [phone] Cardiology 10/31/22 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 Relationship Specialty Start Date End Date Ivette Grimes MD [address] [place] [address] PCP - General Family Medicine 11/21/13 [facility] [address] [place] [address] Pharmacist Pharmacy 05/19/20 Jemal Orozco MD [address], [place] [phone] Cardiology 10/31/22 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 Relationship Specialty Start Date End Date Ivette Grimes MD [address] [place] [address] PCP - General Family Medicine 11/21/13 [facility] [address] [place] [address] Pharmacist Pharmacy 05/19/20 Jemal Orozco MD [address] [place], [place] [phone] Cardiology 10/31/22 Team Status: Active Member Role Status Dates Dr. Ivette Grimes MD Family Provider Active Team Status: Inactive Member Role Status Dates Dr. Bibiana Rehman DC Attending Provider Active Team Status: Inactive Member Role Status Dates Dr. Ivette Grimes MD Primary Care Provider Active Adelina Marinelli ADVANCED PRACTICE NURSE, ADVANCED PRACTICE NURSE-C Attending Provider, Referrin g Provider Active Team [...] MD Admit Provider, Attending Prov ider Active 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 Relationship Specialty Start Date End Date Ivette Grimes MD [address] [place] [address] PCP - General Family Medicine 11/21/13 [facility] [address] [place] [address] Pharmacist Pharmacy 05/19/20 Jemal Orozco MD [address] [place], [place] [phone] Cardiology 10/31/22 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 Relationship Specialty Start Date End Date Ivette Grimes MD [address] [place] [address] PCP - General Family Medicine 11/21/13 [facility] [address] [place] [address] Pharmacist Pharmacy 05/19/20 Jemal Orozco MD [address] [place] [address] Cardiology 10/31/22 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 Relationship Specialty Start Date End Date Ivette Grimes MD [address] [place] [address] PCP - General Family Medicine 11/21/13 [facility] [address] [place] [address] Pharmacist Pharmacy 05/19/20 Jemal Orozco MD [address] [place] [address] Cardiology 10/31/22 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 Relationship Specialty Start Date End Date Ivette Grimes MD [address] [place], [place] 972791 PCP - General Family Medicine 11/21/13 [facility] [address] [place], [place] 940271 Pharmacist Pharmacy 05/19/20 Jemal Orozco MD [address] [place] [address] Cardiology 10/31/22 Team Status: Inactive Member Role [...] MD Admit Provider, Attending Prov ider Active 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 Relationship Specialty Start Date End Date Ivette Grimes MD [address] [place], [place] 633441 PCP - General Family Medicine 11/21/13 [facility] [address] [place], [place] 916981 Pharmacist Pharmacy 05/19/20 Jemal Orozco MD [address] [place], [place] [phone] Cardiology 10/31/22 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 Relationship Specialty Start Date End Date Ivette Grimes MD [address] [place] [address] PCP - General Family Medicine 11/21/13 [facility] [address] [place] [address] Pharmacist Pharmacy 05/19/20 Jemal Orozco MD [address] [place], [place] 8995195 Cardiology 10/31/22 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 Relationship Specialty Start Date End Date Ivette Grimes MD [address] [place] [address] PCP - General Family Medicine 11/21/13 [facility] [address] [place] [address] Pharmacist Pharmacy 05/19/20 Jemal Orozco MD [address] [place] [address] Cardiology 10/31/22 Team Status: Inactive Member Role Status Dates Dr. Ivette Grimes MD Primary Care Provider Active Dr. Luan Zepeda DO Emergency Provider Active 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 Relationship Specialty Start Date End Date Ivette Grimes MD [address] [place] [address] PCP - General Family Medicine 11/21/13 [facility] [address] [place] [address] Pharmacist Pharmacy 05/19/20 Jemal Orozco MD [address] [place], [place] [phone] Cardiology 10/31/22 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 Relationship Specialty Start Date End Date Ivette Grimes MD [address] [place] [address] PCP - General Family Medicine 11/21/13 [facility] [address] [place] [address] Pharmacist Pharmacy 05/19/20 Jemal Orozco MD [address] [place], [place] [phone] Cardiology 10/31/22 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 Relationship Specialty Start Date End Date Ivette Grimes MD [address] [place] [address] PCP - General Family Medicine 11/21/13 [facility] [address] [place] [address] Pharmacist Pharmacy 05/19/20 Jemal Orozco MD [address] [place], [place] [phone] Cardiology 10/31/22 Team Status: Inactive Member Role Status Dates Dr. Ivette Grimes MD Primary Care Provider Active Dr. Luan Zepeda DO Attending Provider, Roxane go Active 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 Relationship Specialty Start Date End Date Ivette Grimes MD [address] [place] [address] PCP - General Family Medicine 11/21/13 Jemal Orozco MD [address] [place], [place] [phone] Cardiology 10/31/22 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 Relationship Specialty Start Date End Date Ivette Grimes MD [address] [place], [place] 641941 PCP - General Family Medicine 11/21/13 Jemal Orozco MD [address] [place] [address] Cardiology 10/31/22 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 Relationship Specialty Start Date End Date Ivette Grimes MD [address] [place] [address] PCP - General Family Medicine 11/21/13 Jemal Orozco MD [address] [place], [place] 6547095 Cardiology 10/31/22 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 Relationship Specialty Start Date End Date Ivette Grimes MD [address] [place], [place] 025001 PCP - General Family Medicine 11/21/13 Jemal Orozco MD [address] [place], [place] 6123495 Cardiology 10/31/22 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 Relationship Specialty Start Date End Date Ivette Grimes MD [address] [place] [address] PCP - General Family Medicine 11/21/13 Jemal Orozco MD [address] [place] [address] Cardiology 10/31/22 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 Relationship Specialty Start Date End Date Ivette Grimes MD [address] [place] [address] PCP - General Family Medicine 11/21/13 Jemal Orozco MD [address] [place] [address] Cardiology 10/31/22 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 Relationship Specialty Start Date End Date Ivette Grimes MD [address] [place], [place] 251211 PCP - General Family Medicine 11/21/13 Jemal Orozco MD [address] [place] [address] Cardiology 10/31/22 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 Relationship Specialty Start Date End Date Ivette Grimes MD [address] [place] [address] PCP - General Family Medicine 11/21/13 Jemal Orozco MD [address] [address] Cardiology 10/31/22 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 Relationship Specialty Start Date End Date Ivette Grimes MD [address] [place], [place] 550301 PCP - General Family Medicine 11/21/13 Jemal Orozco MD [address], [place] 9626095 Cardiology 10/31/22 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 Relationship Specialty Start Date End Date Ivette Grimes MD [address] [place], [place] 027281 PCP - General Family Medicine 11/21/13 Jemal Orozco MD [address], [place] 0680995 Cardiology 10/31/22 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 Relationship Specialty Start Date End Date Ivette Grimes MD [address] [place], [place] 911451 PCP - General Family Medicine 11/21/13 Jemla Orozco MD [address] [place], [place] 7244295 Cardiology 10/31/22 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 Relationship Specialty Start Date End Date Ivette Grimes MD [address] [place] [address] PCP - General Family Medicine 11/21/13 Jemal Orozco MD [address], [place] 8636495 Cardiology 10/31/22 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 Relationship Specialty Start Date End Date Ivette Grimes MD [address] [place] [address] PCP - General Family Medicine 11/21/13 Jemal Orozco MD [address] [place], [place] 9330495 Cardiology 10/31/22 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 Relationship Specialty Start Date End Date Ivette Grimes MD [address] [place], [place] 430821 PCP - General Family Medicine 11/21/13 Jemal Orozco MD [address] [place], [place] 7999195 Cardiology 10/31/22 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 Relationship Specialty Start Date End Date Ivette Grimes MD [address] [place], [place] 852231 PCP - General Family Medicine 11/21/13 Jagdish Carballo [facility] [address] [place], [place] 756961 Pharmacist Pharmacy 05/19/20 12/25/23 Jemal Orozco MD [address] [place], [place] 9484595 Cardiology 10/31/22 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 Relationship Specialty Start Date End Date Ivette Grimes MD [address] [place], [place] 759611 PCP - General Family Medicine 11/21/13 Jemal Orozco MD [address] [place], [place] 6832395 Cardiology 10/31/22 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 Relationship Specialty Start Date End Date Ivette Grimse MD [address] [place], [place] 375841 PCP - General Family Medicine 11/21/13 Jemal Orozco MD [address] [place] [address] Cardiology 10/31/22 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 Relationship Specialty Start Date End Date Ivette Grimes MD [address] [place], [place] 661181 PCP - General Family Medicine 11/21/13 Jemal Orozco MD [address] [place], [place] 8984[address] Cardiology 10/31/22 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 Relationship Specialty Start Date End Date Ivette Grimes MD [address] [place], [place] 324811 PCP - General Family Medicine 11/21/13 Jemal Orozco MD [address] [place], [place] 211[address] Cardiology 10/31/22 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 Relationship Specialty Start Date End Date Ivette Grimes MD [address] [place], [place] 312191 PCP - General Family Medicine 11/21/13 Jemal Orozco MD [address] [place] [address] Cardiology 10/31/22 Cindy Edouard, THOM.LOOP TACKER [address] [place] [address] [employer] Tr[employer] Family Medicine 10/12/24 Lubna De La Garza APRN.LOOP TACKER [address] [place] [address] [employer] Tr[employer] Family Medicine 10/12/24 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 Relationship Specialty Start Date End Date Ivette Grimes MD [address] [place] [address] PCP - General Family Medicine 11/21/13 Jemal Orozco MD [address] [place], [place] 1546295 Cardiology 10/31/22 Cindy Edouard, FILTER FILLER.LOOP TACKER [address] [place] [address] Natural Gas Trader Family Medicine 10/12/24 Lubna De La Garza FILTER FILLER.LOOP TACKER [address] [place] [address] Natural Gas Trader [facility] Medicine 10/12/24 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 Relationship Specialty Start Date End Date Ivette Grimes MD [address] [place] [address] PCP - General Family Medicine 11/21/13 Jemal Orozco MD [address] [place] [address] Cardiology 10/31/22 Cindy Edouard, FILTER FILLER.LOOP TACKER [address] [place] [address] Natural Gas Trader Family Medicine 10/12/24 Lubna De La Garza, FILTER FILLER.LOOP TACKER [address] [place] [address] Natural Gas Trader Family Medicine 10/12/24 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 Relationship Specialty Start Date End Date Ivette Grimes MD [address] [place] [address] PCP - General Family Medicine 11/21/13 Jemal Orozco MD [address] [place], [place] 6958795 Cardiology 10/31/22 Cindy Edouard, FILTER FILLER.LOOP TACKER [address] [place] [address] Natural [employer] Trader Family Medicine 10/12/24 Lubna De La Garza FILTER FILLER.LOOP TACKER [address] [place] [address] Natural Gas Trader Family Medicine 10/12/24 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 Relationship Specialty Start Date End Date Ivette Grimes MD [address] [place], [place] 939391 PCP - General Family Medicine 11/21/13 Jemal Orozco MD [address] [place], [place] 9454495 Cardiology 10/31/22 Cindy Edouard, FILTER FILLER.LOOP TACKER [address] [place] [address] [employer] Tr[employer] Family Medicine 10/12/24 Lubna De La Garza, FILTER FILLER.LOOP TACKER [address] [place] [address] Natural Gas Trader Family Medicine 10/12/24 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 Relationship Specialty Start Date End Date Ivette Grimes MD [address] [place] [address] PCP - General Family Medicine 11/21/13 Jemal Orozco MD [address] [place], [place] 6265495 Cardiology 10/31/22 Cindy Edouard APRN.LOOP TACKER [address] [place] [address] [facility] 10/12/24 Lubna De La Garza FILTER FILLER.LOOP TACKER [address] [place] [address] [facility] 10/12/24 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 Relationship Specialty Start Date End Date Ivette Grimes MD [address] [place], [place] 133681 PCP - General Family Medicine 11/21/13 Jemal Orozco MD [address] [place], [place] 71337[address] Cardiology 10/31/22 Cindy Edouard FILTER FILLER.LOOP TACKER [address] [place] [address] [facility] 10/12/24 Lubna De La Garza APRN.LOOP TACKER [address] [place] [address] [facility] 10/12/24 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 Relationship Specialty Start Date End Date Ivette Grimes MD [address] [place] [address] PCP - General Family Medicine 11/21/13 Jemal Orozco MD [address] [place], [place] 1430[address] Cardiology 10/31/22 Cindy Edouard APRN.LOOP TACKER [address] [place] [address] [facility] 10/12/24 Lubna De La Garza APRN.LOOP TACKER [address] [place] [address] [facility] 10/12/24 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 Relationship Specialty Start Date End Date Ivette Grimes MD [address] [place] [address] PCP - General Family Medicine 11/21/13 Jemal Orozco MD [address] [place], [place] 7419595 Cardiology 10/31/22 Cindy Edouard FILTER FILLER.LOOP TACKER [address] [place] [address] [facility] 10/12/24 Lubna De La Garza FILTER FILLER.LOOP TACKER [address] [place] [address] [facility] 10/12/24 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 Relationship Specialty Start Date End Date Ivette Grimes MD [address] [place] [address] PCP - General Family Medicine 11/21/13 Jemal Orozco MD [address] [place], [place] 3375895 Cardiology 10/31/22 Cindy Edouard FILTER FILLER.LOOP TACKER [address] [place] [address] [facility] 10/12/24 Lubna De La Garza APRN.LOOP TACKER [address] [place] [address] [facility] 10/12/24 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 Relationship Specialty Start Date End Date Ivette Grimes MD [address] [place] [address] PCP - General Family Medicine 11/21/13 Jemal Orozco MD [address] [place] [address] Cardiology 10/31/22 Cindy Edouard APRN.LOOP TACKER [address] [place] [address] [facility] 10/12/24 Lubna De La Garza FILTER FILLER.LOOP TACKER [address] [place] [address] [facility] 10/12/24 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 Relationship Specialty Start Date End Date Ivette Grimes MD [address] [place] [address] PCP - General Family Medicine 11/21/13 Jemal Orozco MD [address] [place], [place] 55427[address] Cardiology 10/31/22 Cindy Edouard APRN.LOOP TACKER [address] [place] [address] [facility] 10/12/24 Lubna De La Garza APRN.LOOP TACKER [address] [place] [address] [employer] [facility] 10/12/24 Team Status: Active Member [...] January 28, 2025 End: January 28, 2025 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 Relationship Specialty Start Date End Date Ivette Grimes MD [address] [facility], [place] 460881 PCP - General Family Medicine 11/21/13 Jemal Orozco MD [address] [place], [place] 3320295 Cardiology 10/31/22 Cindy Edouard APRN.LOOP TACKER [address] [place] [address] [employer] [facility] 10/12/24 Lubna De La Garza APRN.LOOP TACKER [address] [place] [address] [facility] 10/12/24 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 Relationship Specialty Start Date End Date Ivette Grimes MD [address] [place] [address] PCP - General Family Medicine 11/21/13 Jemal Orozco MD [address] [place], [place] 7875895 Cardiology 10/31/22 Cindy Edouard FILTER FILLER.LOOP TACKER [address] [place] [address] Natural Gas Trader [facility] Medicine 10/12/24 Lubna De La Garza FILTER FILLER.LOOP TACKER [address] [place] [address] [facility] 10/12/24 Team Status: Inactive Member Role [...] March 22, 2025 End: March 22, 2025 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 Relationship Specialty Start Date End Date Ivette Grimes MD [address] [place] [address] PCP - General Family Medicine 11/21/13 Jemal Orozco MD [address] [place], [place] 3430695 Cardiology 10/31/22 Cindy Edouard, FILTER FILLER.LOOP TACKER [address] [place], [place] [address]1371 [facility] 10/12/24 Lubna De La Garza FILTER FILLER.LOOP TACKER [address] [place], [place] 232361 [facility] 10/12/24 Team Status: Inactive Member Role Status Dates Dr. Ivette Grimes MD Primary Care Provider Active Start: April 05, 2025 End: April 05, 2025 Dr. Ivette Grimes MD Referring Provider Active Start: April 05, 2025 End: April 05, 2025 Dr. Bibiana Rehman , [place] Attending Provider Active S tart: April 05, 2025 End: April 05, 2025 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 Relationship Specialty Start Date End Date Ivette Grimes MD [address] [place], [place] 664671 PCP - General Family Medicine 11/21/13 Jemal Orozco MD [address] [place], [place] [phone] Cardiology 10/31/22 Cindy Edouard, FILTER FILLER.LOOP TACKER [address] [facility], [place] 756711 [facility] 10/12/24 Lubna De La Garza FILTER FILLER.LOOP TACKER [address] [place] [address] [facility] 12/9/24 Team Status: Active Member Role Status Dates Dr. Ivette Grimes MD Primary Care Provider Active Start: April 17, 2025 Brett Quiroga MD Attending Provider Active St art: April 17, 2025 Bertt Quiroga MD Referring Provider Active St art: [...] June 01, 2025 End: June 01, 2025 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 Relationship Specialty Start Date End Date Ivette Grimes MD [address] [place], [place] 982226[address] PCP - General Family Medicine 11/21/13 Jemal Orozco MD [address] [place] [address] Cardiology 10/31/22 Cindy Edouard, THOM.LOOP TACKER [address] [place], [place] 233451 [employer] [facility] 10/12/24 Lubna De La Garza, FILTER FILLER.LOOP TACKER [address] [place], [place] 419991 [employer] Family [facility] 10/12/24 Team Status: Inactive Member [...] June 09, 2025 End: June 09, 2025 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 Relationship Specialty Start Date End Date Ivette Grimes MD [address] [place], [place] 30301691 PCP - General Family Medicine 11/21/13 Jemal Orozco MD [address] [place] [address] Cardiology 10/31/22 Cindy Edouard, FILTER FILLER.LOOP TACKER [address] [place], [place] 556451 [employer] Tr[employer] Family [facility] 10/12/24 Lubna De La Garza FILTER FILLER.LOOP TACKER [address] [place], [place] 492501 [employer] Tr[employer] [facility] 10/12/24 Team Status: Inactive Member [...] Star t: July 05, 2025 Dr. Chicho hCou MD Other Provider Active Start: July 05, 2025 Dr. Ivette Jackson MD Other Provider Active Sta rt: July 05, 2025 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 Relationship Specialty Start Date End Date Ivette Grimes MD [address] [place], [place] 099611 PCP - General Family Medicine 11/21/13 Jemal Orozco MD [address] [place] [address] Cardiology 10/31/22 Cindy Edouard APRN.LOOP TACKER [address] [place], [place] [address]88441 [facility] 10/12/24 Lubna De La Garza FILTER FILLER.LOOP TACKER [address] [place], [place] 09709[address] [facility] 10/12/24 Team Status: Inactive Member Role/Relationship [...] Active Start: July 05, 2025 Dr. Abhi Pian MD Emergency Provider Active Sta rt: July [...] Active Start: July 06, 2025 Dr. Primo eCron MD Other Provider Active Star t: July [...] July 09, 2025 End: July 09, 2025 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 Relationship Specialty Start Date End Date Ivette Grimes MD [address] [place], [place] 635401 PCP - General Family Medicine 11/21/13 Jemal Orozco MD [address] [place], [place] 5364[address] Cardiology 10/31/22 Cindy Edouard, FILTER FILLER.LOOP TACKER [address] [place], [place] 566161 [employer] Tr[employer] [facility] 10/12/24 Lubna De La Garza, FILTER FILLER.LOOP TACKER [address] [place] [address] [employer] Tr[employer] [facility] 10/12/24 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 Relationship Specialty Start Date End Date Ivette Grimes MD [address] [place], [place] 407651 PCP - General Family Medicine 11/21/13 Jemal Orozco MD [address] [place] [address] Cardiology 10/31/22 Cindy Edouard APRN.LOOP TACKER [address] [place] [address] Natural Gas Trader [facility] 10/12/24 Lubna De La Garza FILTER FILLER.LOOP TACKER [address] [place] [address] Natural [employer] Trader [facility] 10/12/24 Team Status: Active [...] DATE CREATED AUTHOR AUTHOR'S ORGANIZ ATION 09/10/2025 [facility] DATE CREATED AUTHOR AUTHOR'S ORGANIZ ATION 09/17/2025 [facility] Inactive Administered Medications - up to [...] BE BASED ON THE PRIMARY CLINICAL RECORDS. [facility] [employer] [facility]. provides no warranty or guarantee of the accuracy or completeness of information in this document.
--- NOTE | 2025-09-28 00:38 | HP.PCM.HOS_ITS ---
HPI - General General Date of Admission: 09/27/25 Date of Service: 09/27/25 Chief Complaint: Confusion HPI Narrative TORI GARCIA, is a 45 F who presents with mild episode of confusion, dizziness and cloudy urine. She has a past medical history of type 2 diabetes, hypertension, obstructive sleep apnea on nocturnal CPAP, kidney stones and UTI. Patient has a history of sepsis from UTI as well as hyperosmolar nonketotic state requiring ICU admission in July 2025. On September 16, patient had outpatient lithotripsy and ureteroscopy with left sided ureteral stent placement for the management of an obstructing left-sided proximal stone. This time, daughter states that her mom started to have some sort of confusion and making nonsense, so they expected that this can be the early sign of having UTI and sepsis as well as high blood sugars. Patient states that she noticed her urine became cloudy over the past couple days. She has pains in the left flank and pains from bladder spasms for which she takes Pyridium. She denies dysuria. Patient has been urinating more often. She had subjective fever. Patient also felt dizzy and lightheaded with movement. She is not on diuretics, denies vomiting or diarrhea. She was nauseous and unable to eat. Patient has been off her Ozempic for 2 weeks because of the recent surgery (urologic intervention). She stated that when she was off Ozempic before for the shoulder surgery, she developed DKA/HHS (in July) In the ED patient was borderline hypotensive 101/50, from hypertensive baseline. Lethargic but no longer confused or disoriented. Workup showed WBC 12.2 with left shift, lactic acid 2.4, glucose 305, anion gap 14 and negative ketones in the urine. Urine showed mild pyuria 50-100 WBC and was cloudy Patient received 1 L normal saline and 2 g IV cefepime [facility] Medical History Insulin dependent diabetes mellitus Hypertension Depression Fatty liver Gastric reflux BiPAP (biphasic positive airway pressure) dependence Non-smoker History of stress test History of echocardiogram Cardiology follow-up encounter Microalbuminuria Fatty liver Anxiety Migraines Acute bronchitis Home Medications ?Medication ?Instructions ?Recorded ?Last Taken ?Type blood sugar diagnostic (Blood #10 ea 04/26/20 Unknown History Glucose Test strips) ipratropium bromide 21 mcg (0.03 2 spray intranasal BI D PRN 08/23/20 08/03/23 History %) nasal spray allergies albuterol sulfate 90 mcg/actuation 2 puff inhalation Q 4H PRN 08/10/22 08/03/23 History aerosol inhaler shortness of breath or wheez ing fexofenadine 180 mg tablet 180 mg PO DAILY allergies 1 09/16/25 05:00 History (Allergy Relief (fexofenadine)) levonorgestrel 17.5 mcg/24 hr (up 1 device intrauterin e ONCE 08/10/22 06/23/25 History to 5 yrs) 19.5mg intrauterine control device tizanidine 4 mg tablet 4 mg PO Q8H PRN Muscle Spasm 08/10/22 06/20/25 History omeprazole 20 mg capsule,delayed 20 mg PO DAILY PRN ge rd 08/16/22 09/16/25 05:00 History release fluoxetine 20 mg capsule 20 mg PO QHS mental health 0 12/28/22 06/22/25 History gabapentin 300 mg capsule 300 mg PO QHS nerve pain 06/22/25 History lisinopril 10 mg tablet 10 mg PO DAILY blood pressur e 12/28/22 06/22/25 History rimegepant 75 mg disintegrating 75 mg PO DAILY PRN rosalina ray 02/04/24 11/10/24 History tablet (Nurtec ODT) headache semaglutide 2 mg/dose (8 mg/3 mL) 2 mg subcut TU 07/0509/07/25 History subcutaneous pen injector (Ozempic) BIPAP -Bilevel Positive Airway 07/06/25 Unknown Histo ry Pressure ([facility] INFORMATIONAL USE ONLY) insulin glargine 100 unit/mL (3 10 unit (0.1 mL) subcu t QPM #15 mL 07/07/25 Unknown Rx mL) subcutaneous pen (Lantus Solostar U-100 Insulin) pen needle, diabetic 31 gauge x #100 ea 07/07/25 Unkno wn Rx topiramate 50 mg tablet 150 mg PO QHS 08/05/25 Unkno wn History ondansetron 4 mg disintegrating 4 mg PO Q8H PRN nausea and 09/16/25 Unknown Rx tablet vomiting #10 tabs oxycodone-acetaminophen 5 mg-325 1 tab PO Q8H PRN pain 3 days #10 09/16/25 Unknown Rx mg tablet tabs phenazopyridine 200 mg tablet 200 mg PO TID PRN pain # 30 tabs 09/16/25 Unknown Rx Allergy/AdvReac Type Severity Reaction Status Date / Time Corticosteroids Allergy Hives Verified 09/27/25 21:12 (Glucocorticoids) (steroids) lidocaine AdvReac Intermediate Hives Verified 09/27/25 21:12 Family History Father Diabetes Myocardial infarction Pancreatic cancer Mother Alcohol abuse Drug abuse Grandfather Diabetes Grandmother Lung cancer Grandmother Heart disease Triple bypass surgery Surgical History Hx of shoulder surgery History of urethral stent (~2018) Hx laparoscopic cholecystectomy (~2005) H/O: (~2005) Social History household members: none Smoking Status: Never smoker alcohol intake: never substance use type: does not use caffeine: Yes Type: coffee what type of physical activity do you participate in: walking frequency: daily seatbelt use: always do you feel safe at home: Yes ROS Constitutional Constitutional: Reports fever(s) and poor appetite ENT HEENT: Reports none Cardiovascular Cardiovascular: Denies chest pain or dyspnea Respiratory/Chest Respiratory/Chest: Denies cough or wheezing Gastrointestinal Gastrointestinal: Denies abdominal pain or change in bowel habits Genitourinary Genitourinary: Reports change in urinary stream and urinary frequency; Denies dysuria Musculoskeletal Musculoskeletal: Denies arthralgias or myalgias Integumentary Integumentary: Reports none Neurologic Neurologic: Reports confusion and dizziness; Denies abnormal speech, focal weakness, loss of vision or numbness Hematologic/Lymphatic Hematologic/Lymphatic: Reports none Vital Signs Vital Signs Vital Signs: 09/27/25 21:10 09/27/25 22:12 09/27/25 23:00 Temperature 97.9 F 98.4 F 97.8 F Temperature Source Oral Temporal Temporal Pulse Rate 80 66 101 H Respiratory Rate 16 18 18 Blood Pressure 116/71 101/52 L 101/52 L Blood Pressure Mean 86 68 68 Pulse Ox 98 96 97 Oxygen Delivery Method Room Air Room Air Room Air 09/27/25 23:05 09/27/25 23:10 09/28/25 00:00 Temperature 97.8 F 98.0 F Temperature Source Temporal Pulse Rate 63 68 70 Respiratory Rate 19 H 20 H 18 Blood Pressure 101/52 L 118/67 Blood Pressure Mean 68 84 Pulse Ox 98 98 97 Oxygen Delivery Method Room Air Room Air Weight Weight: 126.643 kg Body Mass Index (BMI) 43.7 Physical Exam Const alert and oriented x3 General Appearance: cooperative HEENT normocephalic and head/scalp atraumatic Eyes EOMs intact bilaterally; Negative for no scleral icterus Neck supple Resp normal respiratory effort and clear to auscultation bilaterally Cardio regular rate and regular rhythm; Negative for no murmurs GI normal to inspection, nondistended, normoactive bowel sounds; Negative for non- tender Narrative: Left CVA tenderness Extremity no joint enlargement and no pedal edema Skin no rashes or lesions noted Neuro oriented x3 and moves all extremities Results Lab / Micro Data 09/28/25 02:14 09/27/25 21:26 Labs: Laboratory Results - last 24 hr 09/27/25 21:24: Urine Color Yellow, Urine Clarity Cloudy, Urine pH 6.5, Ur Specific [place] 1.020, Urine Protein 100 H, Urine Glucose (UA) 100 H, Urine Ketones Negative, Urine Occult Blood 25 H, Urine Nitrite Positive H, Urine Bilirubin Negative, Urine Urobilinogen 1 H, Ur Leukocyte Esterase 500 H, Urine RBC 5-10 SEEN, Urine WBC 50-100 SEEN, Ur Squamous Epith Cells 5-10 SEEN, Amorphous Sediment 2+, Urine Bacteria 2+, Urine Mucus 1+ 09/27/25 21:26: WBC 12.2 H, RBC 3.95 L, Hgb 12.3, Hct 35.9 L, MCV 90.9, MCH 31.1, MCHC 34.3, RDW Std Deviation 45.1 H, RDW Coeff of Itzel 13.6, Plt Count 247, MPV 9.0, Immature Gran % (Auto) 1.700 H, Neut % (Auto) 62.2, Lymph % (Auto) 29.4, Patrick % (Auto) 4.0, Eos % (Auto) 2.0, Baso % (Auto) 0.7, Absolute Neuts (auto) 7.6, Absolute Lymphs (auto) 3.59, Nucleated RBC % 0, Sodium 135, Potassium 4.2, Chloride 101, Carbon Dioxide 19.5 L, Anion Gap 14, BUN 11, Creatinine 0.95, Estim Creat Clear Calc 105.61, Est GFR (MDRD) Non-Af 77, BUN/Creatinine Ratio 12.1, Glucose 305 H, Lactic Acid 2.4 H*, Calcium 8.9, Total Bilirubin 0.39, AST 30, ALT 32, Alkaline Phosphatase 98, Total Protein 7.3, Albumin 4.0, Globulin 3.3, Albumin/Globulin Ratio 1.2 Imaging Radiology Impression Abdomen/Pelvis CT 09/27/25 21:23 IMPRESSION: No acute intra-abdominal abnormality. Interval left nephroureteral stent placement with resolved left hydronephrosis. Previously seen stone at the left ureteropelvic junction no longer present. Additional punctate nonobstructive left renal stones are unchanged. Reading Location: [id number] Assessment & Plan Assessment/Plan (1) Complicated urinary tract infection: (2) Encephalopathy acute: (3) Hyperglycemia due to diabetes mellitus: (4) Acidosis, lactic: (5) Obesity: QUALIFIERS: Body mass index: BMI 40.0-44.9 Obesity classification: adult class 3 (BMI >= 40) Obesity type: due to excess calories Serious obesity comorbidity presence: with serious comorbidity Qualified Code(s): E66.01 - Morbid (severe) obesity due to excess calories; Z68.41 - Body mass index [BMI]40.0-44.9, adult (6) LETITIA (obstructive sleep apnea): PLAN: Plan 45-year-old female comes in with short episode of confusion, hyperglycemia, UTI, and lactic acidosis after recent urologic intervention with placement of left ureteral stent and stone removal. Admission to progressive care unit for IV antibiotics, cultures, hydration and insulin therapy. May need urology consultation Complicated UTI: Systemic symptoms with UTI. No obstruction anymore (stone was removed, no obstruction is seen now) Indwelling left ureteral stent (recent, Sep 16) Previous pansensitive E. coli UTI, at least 2 occasions this year Continue cefepime 2 g IV twice daily. It was started in the ED, agree as patient has risk for resistant organisms (recent admission with IV antibiotics, recent urologic intervention). Follow urine culture No evidence of sepsis or shock. Confusion was mild and resolved, BP is up with IV fluids Urology consult: Was contacted in the ED, no urgent intervention needed Acute encephalopathy: Mild and intermittent, short-lived confusion. Common with infection and/or hyperglycemia as per patient's own experience Hyperglycemia: No DKA or hyperosmolar state. Likely triggered by stress of infection and not having Ozempic for 2 weeks Continue Lantus 10 units at bedtime, add Premeal short acting with sliding scale. (Patient takes Lantus 10 units if sugars is below 200, uses a sliding scale if above 200) Hydration with LR, 1 extra liter to be given over 8 hours Lactic acidosis: 2.4, likely from hypoperfusion from volume depletion from hyperglycemia and infection Repeat in the morning to ensure resolution to below 2.0 LETITIA: Continue home CPAP machine Hypertension: Hold home medications lisinopril until she is back to baseline BP Sepsis Attestation Sepsis Attestation: Sepsis Ruled Out Charges/Coding Visit Charges Inpatient E&M: 89955 Init Hosp L3 Multi Select Codes Visit Charges Visit Charges: 13802 Init Hosp L3
[2025-09-28 00:42] VITALS: BMI 43.7
[2025-09-28 00:45] VITALS: BP 131/78; PULSE 63; RESP 18; TEMP 36.1; O2SAT 97
[2025-09-28] MEDS: 0.9% Saline Lock 10 ML Syringe IV ×2 (01:10→09:44)
[2025-09-28] MEDS: Lactated Ringers 1,000 ML 125 ML IV (01:10)
[2025-09-28 01:39] LABS: Reflex Lactate? Y
[2025-09-28 02:32] LABS: Hematocrit 34.8 % (37-47); Hemoglobin 11.5 g/dL (12.0-15.0); Immature Granulocytes Count 0.240 X10^3/uL (0.0-0.0); Mean Corp Hgb Conc 33.0 g/dL (32-36); Mean Corpuscular Volume 91.8 fL (81-99); Mean Platelet Vol. 9.0 fl (6.2-12.0); NRBC Flagged by Analyzer 0 % (0-5); Platelet Count 214 K/mm3 (150-450); RBC Distribution Width CV 13.8 % (11.6-14.6); RBC Distribution Width SD 46.4 fl (35.1-43.9); Red Blood Count 3.79 M/mm3 (4.2-5.4); White Blood Count 11.4 K/mm3 (4.4-11.0)
[2025-09-28 03:10] VITALS: BP 103/63; PULSE 64; RESP 18; TEMP 36; O2SAT 98
--- NOTE | 2025-09-28 07:48 | PN.HOSP_ITS ---
Reason for Visit Chief Complaint: Confusion Subjective Subjective Patient is a 45-year-old lady who presented with left flank pain dizziness with some confusion. Urinalysis obtained on admission came back consistent with UTI admitted to monitored bed for subsequent management Objective Data Objective Data Vital Signs: Vital Signs Temp Pulse Resp BP Pulse Ox O2 Del Method 96.8 F L 64 18 103/63 98 Bi-pap 09/28/25 03:10 09/28/25 03:10 09/28/25 03:10 09/28/25 03:10 09/28/25 03:10 09/28/25 03:10 Oxygen Delivery Method Bi-pap Weight: 126.6 kg Body Mass Index (BMI) 43.7 Intake & Output: Intake and Output for Last 24 Hours 09/26/25 09/27/25 09/28/25 23:59 23:59 23:59 Intake Total 1900 / 1900 Balance 1900 / 1900 Lab / Micro Data 09/28/25 02:14 09/27/25 21:26 Labs: Laboratory Results - last 24 hr 09/27/25 21:24: Urine Color Yellow, Urine Clarity Cloudy, Urine pH 6.5, Ur Specific [place] 1.020, Urine Protein 100 H, Urine Glucose (UA) 100 H, Urine Ketones Negative, Urine Occult Blood 25 H, Urine Nitrite Positive H, Urine Bilirubin Negative, Urine Urobilinogen 1 H, Ur Leukocyte Esterase 500 H, Urine RBC 5-10 SEEN, Urine WBC 50-100 SEEN, Ur Squamous Epith Cells 5-10 SEEN, Amorphous Sediment 2+, Urine Bacteria 2+, Urine Mucus 1+ 09/27/25 21:26: WBC 12.2 H, RBC 3.95 L, Hgb 12.3, Hct 35.9 L, MCV 90.9, MCH 31.1, MCHC 34.3, RDW Std Deviation 45.1 H, RDW Coeff of Itzel 13.6, Plt Count 247, MPV 9.0, Immature Gran % (Auto) 1.700 H, Neut % (Auto) 62.2, Lymph % (Auto) 29.4, [place] % (Auto) 4.0, Eos % (Auto) 2.0, Baso % (Auto) 0.7, Absolute Neuts (auto) 7.6, Absolute Lymphs (auto) 3.59, Nucleated RBC % 0, Sodium 135, Potassium 4.2, Chloride 101, Carbon Dioxide 19.5 L, Anion Gap 14, BUN 11, Creatinine 0.95, Estim Creat Clear Calc 105.61, Est GFR (MDRD) Non-Af 77, BUN/Creatinine Ratio 12.1, Glucose 305 H, Lactic Acid 2.4 H*, Calcium 8.9, Total Bilirubin 0.39, AST 30, ALT 32, Alkaline Phosphatase 98, Total Protein 7.3, Albumin 4.0, Globulin 3.3, Albumin/Globulin Ratio 1.2 09/28/25 00:44: POC Glucose 223 H 09/28/25 02:14: WBC 11.4 H, RBC 3.79 L, Hgb 11.5 L, Hct 34.8 L, MCV 91.8, MCH 30.3, MCHC 33.0, RDW Std Deviation 46.4 H, RDW Coeff of Itzel 13.8, Plt Count 214, MPV 9.0, Immature Gran % (Auto) 2.100 H, Neut % (Auto) 54.9, Lymph % (Auto) 35.8, [place] % (Auto) 4.5, Eos % (Auto) 2.0, Baso % (Auto) 0.7, Absolute Neuts (auto) 6.3, Absolute Lymphs (auto) 4.10, Nucleated RBC % 0, Lactic Acid 1.7 09/28/25 06:12: POC Glucose 166 H Radiography Diagnostic Testing: Radiology Impression Abdomen/Pelvis CT 09/27/25 21:23 IMPRESSION: No acute intra-abdominal abnormality. Interval left nephroureteral stent placement with resolved left hydronephrosis. Previously seen stone at the left ureteropelvic junction no longer present. Additional punctate nonobstructive left renal stones are unchanged. Reading Location: [facility] Physical Exam Narrative GENERAL: cooperative HEENT: Atraumatic; normocephalic EYES; Anicteric, Normal Conjunctiva NECK; supple, normal thyroid, RESPIRATORY: Diminished to auscultation CARDIOVASCULAR: Regular S1 S2, GI: soft, normoactive bowel sounds, : No Renal angle tenderness; EXTREMITIES: No edema, no clubbing, MUSCULOSKELETAL: no muscle wasting NEURO: Awake; no lateralizing signs. SKIN: No Rash PSYCH; Flat affect Assessment & Plan Assessment/Plan (1) Complicated urinary tract infection: (2) Encephalopathy acute: (3) Hyperglycemia due to diabetes mellitus: (4) Acidosis, lactic: (5) Obesity: QUALIFIERS: Body mass index: BMI 40.0-44.9 Obesity classification: adult class 3 (BMI >= 40) Obesity type: due to excess calories Serious obesity comorbidity presence: with serious comorbidity Qualified Code(s): E66.01 - Morbid (severe) obesity due to excess calories; Z68.41 - Body mass index [BMI]40.0-44.9, adult (6) LETITIA (obstructive sleep apnea): PLAN: Plan 45-year-old female comes in with short episode of confusion, hyperglycemia, UTI, and lactic acidosis after recent urologic intervention with placement of left ureteral stent and stone removal. 1. Acute metabolic encephalopathy ? secondary to UTI as well as acute kidney injury admitted to a monitored unit for further management 2. Sepsis secondary to acute complicated UTI (sepsis present on admission ? Patient met sepsis criteria with the presence of heart rate of 101, leukocytosis of12.2 and evidence of endorgan dysfunction by way of lactic acidosis. Patient did respond to treatment with broad-spectrum antibiotic therapy and IV fluid resuscitation 3. Acute complicated UTI ? Following recent urology care revision with placement of left ureteral stent and stone removal. Patient started on cefepime urine and blood cultures sent 4. Diabetes mellitus type 2 presenting with hyperglycemia ? Discontinue patient long-acting insulin in addition to Accu-Cheks ACHS with sliding scale coverage patient is on Ozempic as outpatient plan is to resume following discharge. Patient blood glucose levels still remain elevated adjusted long-acting insulin 5. Anemia ? Secondary to chronic disorder monitoring H&H and transfuse if patient becomes symptomatic or hemoglobin falls below 7 6. Class II obesity with BMI of 44. - complicating care weight loss advised 7. Essential hypertension ? Patient presented with relative hypotension she is on lisinopril at home held on admission monitoring with plans to resume once blood pressure stabilizes 8. GERD ? On PPI 9. Chronic migraines ? Patient is on Rimegepant as needed at home 10. Obstructive sleep apnea ? Consistent use of PAP therapy encouraged 11. Left shoulder impingement syndrome anxiety is ? Patient underwent Left shoulder arthroscopy, subacromial decompression, debridement on 06/23/2025. Left shoulder immobilized 12. DVT prophylaxis Enoxaparin 40 mg SC twice daily Time spent in the patient's overall evaluation,decision-making process, review of diagnostic data, adjustment of management, discussion with other providers, nursing nursing and ancillary staff involved in patient's care documentation, 52 Minutes Charges/Coding Visit Charges Inpatient E&M: 80593 Subs Hosp L3
--- NOTE | 2025-09-28 09:00 | CASEMGMT ---
RN DAJUAN NOTE:? Dx:?Compicated UTI Strata:? 6 click:? No therapy ordered.? No CM consult ordered.? Pt has a PCP listed in [facility]. Medical record reviewed and patient evaluated for identification of discharge planning needs. Patient does not currently demonstrate a need for discharge planning by RN DAJUAN. CM will continue to be available for any discharge needs that may arise, and intervene as indicated.
[2025-09-28] MEDS: 0.9% Normal Saline (250mL Bag) 250 ML 15 ML IV (09:43)
[2025-09-28] MEDS: Cefepime HCl 2 GM in 0.9% Normal Saline (100mL MB+) 100 ML IV ×2 (09:46→21:14)
[2025-09-28 09:55] VITALS: BP 121/65; PULSE 76; RESP 18; TEMP 36.6; O2SAT 98
--- NOTE | 2025-09-28 10:25 | CASEMGMT ---
Social Work Face to Face with patient for initial transition planning/care coordination assessment. Patient is A&Ox4. Admitting dx: complicated UTI PCP: Zeferino Leon Specialists: Ortho- Dr. Quiroga, urology- Dr. Christensen, Cardio- Dr. Montes, pulmonology- Sharita Sher, JEANNIE Preferred Pharmacy: [facility] Insurance: [facility] [employer] Prescription Benefit: Yes LNOK: Elizabeth (Daughter), Bryson Carlson (SO) Living Arrangements: Patient lives with her daughter in a 2 story townhouse with one step to enter. ADLs/IADLs: Independent Transportation: Pt states that she does not drive. Pt reports that her SO and daughter drive her. DME: BiPAP through [employer]. Pt states that she has a functioning BGM and she has supplies. Patient has a BP Machine and pulse ox. Patient's Apple Watch can be used for medical alert system, HR, and oxygen monitoring. HHC/SNF: Denies hx or needs Pt?s goal: Patient wants to DC home. Patient reported she does not want HH at NH. assessment: Patient lives with her daughter in a 2 story townhouse with one step to enter. Patient is employed. Patient does not want services at NH. REBECCA Schwarz
[2025-09-28] MEDS: Insulin Glargine-YFGN 100 UNIT/ML Pen 15 UNIT SC ×2 (11:31→21:17)
--- NOTE | 2025-09-28 14:59 | CHAPLAIN ---
Type of Pastoral Visit _x__ Initial Visit ___ Follow-up Visit ___ On-call Visit ___ General Patient Visit ___ Spiritual Assessment ___ Family Conference ___ Bereavement ___ Rapid Response ___ Code Blue ___ Other (describe below) Pastoral Care Referral From _x__ Patient ___ Family ___ Nurse ___ Physician ___ Pediatric Immunologist ___ Implementation Architect ___ Other (describe below) Sacrament/Intervention _x__ Active listening ___ Anointing ___ Yazidism ___ Bereavement ___ Communion ___ Beata exploration ___ ___ Life review _x__ Prayer ___ Reconciliation ___ Sacrament of Sick _x__ Supportive presence ___ Wedding ___ Other (describe below) Pastoral Comments 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
[2025-09-28 16:13] VITALS: BP 134/103; PULSE 71; RESP 16; TEMP 36.9; O2SAT 100
--- NOTE | 2025-09-28 16:15 | PCM.CONS.GEN ---
Assessment & Plan Assessment/Plan (1) Complicated urinary tract infection: (2) Acute alteration in mental status: (3) Encephalopathy acute: (4) Acidosis, lactic: (5) Adult BMI 40.0-44.9 kg/sq m: (6) Type 1 diabetes mellitus with hyperglycemia: (7) Acute hypotension: (8) Nephrolithiasis: PLAN: Plan await culture results continue supportive care and antibiotic coverage continue ureteral stent Keep office appointment for next week Will discuss remaining left renal stone fragments after recovery. It would not be unreasonable to repeat ureteroscopy in a few weeks with a goal of becoming stone free. Please call with any questions or concerns. HPI Consult Data Date of Consult: 09/28/25 HPI Narrative Reason for Consultation: urosepsis, recent lithotripsy HPI Narrative: TORI GARCIA, is a 45 F who was admitted from the ER with nausea, vomiting, abdominal pain with hyperglycemia and meeting criteria for sepsis. She did well right after surgery and then the last 4 days she has been having some increasing left upper quadrant discomfort. She reports that her back is not significantly tender, more just like her normal back pain. There have been no lower urinary tract symptoms of dysuria, hematuria or significant urgency and frequency. The stent has not seemed to be too bothersome to her. [facility] Medical History Insulin dependent diabetes mellitus Hypertension Depression Fatty liver Gastric reflux BiPAP (biphasic positive airway pressure) dependence Non-smoker History of stress test History of echocardiogram Cardiology follow-up encounter Microalbuminuria Fatty liver Anxiety Migraines Acute bronchitis Home Medications ?Medication ?Instructions ?Recorded ?Last Taken ?Type blood sugar diagnostic (Blood #10 ea 04/26/20 Unknown History Glucose Test strips) ipratropium bromide 21 mcg (0.03 2 spray intranasal BID PRN 08/23/20 08/03/23 History %) nasal spray allergies albuterol sulfate 90 mcg/actuation 2 puff inhalation Q4H PRN 08/10/22 08/03/23 History aerosol inhaler shortness of breath or wheezing fexofenadine 180 mg tablet 180 mg PO DAILY allergies 08/10/22 09/16/25 05:00 History (Allergy Relief (fexofenadine)) levonorgestrel 17.5 mcg/24 hr (up 1 device intrauterine ONCE 08/10/22 06/23/25 History to 5 yrs) 19.5mg intrauterine control device tizanidine 4 mg tablet 4 mg PO Q8H PRN Muscle Spasm 08/10/22 06/20/25 History omeprazole 20 mg capsule,delayed 20 mg PO DAILY PRN gerd 08/16/22 09/16/25 05:00 History release fluoxetine 20 mg capsule 20 mg PO QHS mental health 12/28/22 06/22/25 History gabapentin 300 mg capsule 300 mg PO QHS nerve pain 12/28/22 06/22/25 History lisinopril 10 mg tablet 10 mg PO DAILY blood pressure 12/28/22 06/22/25 History rimegepant 75 mg disintegrating 75 mg PO DAILY PRN migraine 02/04/24 11/10/24 History tablet (Nurtec ODT) headache semaglutide 2 mg/dose (8 mg/3 mL) 2 mg subcut TU 07/05/25 09/07/25 History subcutaneous pen injector (Ozempic) BIPAP -Bilevel Positive Airway 07/06/25 Unknown History Pressure ([facility] INFORMATIONAL USE ONLY) insulin glargine 100 unit/mL (3 10 unit (0.1 mL) subcut QPM #15 mL 07/07/25 Unknown Rx mL) subcutaneous pen (Lantus Solostar U-100 Insulin) pen needle, diabetic 31 gauge x #100 ea 07/07/25 Unknown Rx 5/32 topiramate 50 mg tablet 150 mg PO QHS 08/05/25 Unknown History ondansetron 4 mg disintegrating 4 mg PO Q8H PRN nausea and 09/16/25 Unknown Rx tablet vomiting #10 tabs oxycodone-acetaminophen 5 mg-325 1 tab PO Q8H PRN pain 3 days #10 09/16/25 Unknown Rx mg tablet tabs phenazopyridine 200 mg tablet 200 mg PO TID PRN pain #30 tabs 09/16/25 Unknown Rx Allergy/AdvReac Type Severity Reaction Status Date / Time Corticosteroids Allergy Hives Verified 09/27/25 21:12 (Glucocorticoids) (steroids) lidocaine AdvReac Intermediate Hives Verified 09/27/25 21:12 Family History Father Diabetes Myocardial infarction Pancreatic cancer Mother Alcohol abuse Drug abuse Grandfather Diabetes Grandmother Lung cancer Grandmother Heart disease Triple bypass surgery Surgical History Hx of shoulder surgery History of urethral stent (~2018) Hx laparoscopic cholecystectomy (~2005) H/O: (~2005) Social History household members: none Smoking Status: Never smoker alcohol intake: never substance use type: does not use caffeine: Yes Type: coffee what type of physical activity do you participate in: walking frequency: daily seatbelt use: always do you feel safe at home: Yes ROS Constitutional Constitutional: Denies fatigue or fever(s) Eyes Eyes: Reports systems reviewed and no addt'l complaints, except as documented ENT HEENT: Reports systems reviewed and no addt'l complaints, except as documented Cardiovascular Cardiovascular: Denies chest pain, dizziness or dyspnea Respiratory/Chest Respiratory/Chest: Denies cough or dyspnea Gastrointestinal Gastrointestinal: Reports abdominal pain, nausea and vomiting Genitourinary Genitourinary: Reports abdominal discomfort; Denies dysuria, flank pain or hematuria Musculoskeletal Musculoskeletal: Reports systems reviewed and no addt'l complaints, except as documented and back pain Integumentary Integumentary: Reports systems reviewed and no addt'l complaints, except as documented Neurologic Neurologic: Reports systems reviewed and no addt'l complaints, except as documented Psychiatric Psychiatric: Reports systems reviewed and no addt'l complaints, except as documented Endocrine Endocrinology: Reports systems reviewed and no addt'l complaints, except as documented Hematologic/Lymphatic Hematologic/Lymphatic: Reports systems reviewed and no addt'l complaints, except as documented Allergic/Immunologic Allergic/Immunologic: Reports systems reviewed and no addt'l complaints, except as documented Physical Exam Const alert and oriented x3 General Appearance: cooperative, well kempt and well developed HEENT normocephalic, head/scalp atraumatic, hearing grossly normal bilaterally and external ears normal Eyes General Eye: normal appearance of both eyes Neck supple General: normal visual inspection Chest inspection of chest normal Chest: symmetrical chest wall rise Resp normal respiratory effort and normal air movement Cardio regular rate GI soft to palpation GI Narrative: Mild left upper quadrant tenderness, no rebound or guarding Narrative: No significant CVA tenderness on exam No Haas catheter Extremity Extremity Narrative: SCDs in place Skin no rashes or lesions noted, no jaundice, no petechiae and no mottling Neuro oriented x3, CN's II-XII intact bilaterally and moves all extremities Psych mental status grossly normal and thought process normal Lab / Micro Data Attestation: I reviewed the patient's lab results. 09/28/25 02:14 09/27/25 21:26 Labs: Laboratory Results - last 24 hr 09/27/25 21:24: Urine Color Yellow, Urine Clarity Cloudy, Urine pH 6.5, Ur Specific [place] 1.020, Urine Protein 100 H, Urine Glucose (UA) 100 H, Urine Ketones Negative, Urine Occult Blood 25 H, Urine Nitrite Positive H, Urine Bilirubin Negative, Urine Urobilinogen 1 H, Ur Leukocyte Esterase 500 H, Urine RBC 5-10 SEEN, Urine WBC 50-100 SEEN, Ur Squamous Epith Cells 5-10 SEEN, Amorphous Sediment 2+, Urine Bacteria 2+, Urine Mucus 1+ 09/27/25 21:26: WBC 12.2 H, RBC 3.95 L, Hgb 12.3, Hct 35.9 L, MCV 90.9, MCH 31.1, MCHC 34.3, RDW Std Deviation 45.1 H, RDW Coeff of Itzel 13.6, Plt Count 247, MPV 9.0, Immature Gran % (Auto) 1.700 H, Neut % (Auto) 62.2, Lymph % (Auto) 29.4, [place] % (Auto) 4.0, Eos % (Auto) 2.0, Baso % (Auto) 0.7, Absolute Neuts (auto) 7.6, Absolute Lymphs (auto) 3.59, Nucleated RBC % 0, Sodium 135, Potassium 4.2, Chloride 101, Carbon Dioxide 19.5 L, Anion Gap 14, BUN 11, Creatinine 0.95, Estim Creat Clear Calc 105.61, Est GFR (MDRD) Non-Af 77, BUN/Creatinine Ratio 12.1, Glucose 305 H, Lactic Acid 2.4 H*, Calcium 8.9, Total Bilirubin 0.39, AST 30, ALT 32, Alkaline Phosphatase 98, Total Protein 7.3, Albumin 4.0, Globulin 3.3, Albumin/Globulin Ratio 1.2 09/28/25 00:44: POC Glucose 223 H 09/28/25 02:14: WBC 11.4 H, RBC 3.79 L, Hgb 11.5 L, Hct 34.8 L, MCV 91.8, MCH 30.3, MCHC 33.0, RDW Std Deviation 46.4 H, RDW Coeff of Itzel 13.8, Plt Count 214, MPV 9.0, Immature Gran % (Auto) 2.100 H, Neut % (Auto) 54.9, Lymph % (Auto) 35.8, [place] % (Auto) 4.5, Eos % (Auto) 2.0, Baso % (Auto) 0.7, Absolute Neuts (auto) 6.3, Absolute Lymphs (auto) 4.10, Nucleated RBC % 0, Lactic Acid 1.7 09/28/25 06:12: POC Glucose 166 H 09/28/25 11:29: POC Glucose 191 H Imaging Radiology Impression Abdomen/Pelvis CT 09/27/25 21:23 IMPRESSION: No acute intra-abdominal abnormality. Interval left nephroureteral stent placement with resolved left hydronephrosis. Previously seen stone at the left ureteropelvic junction no longer present. Additional punctate nonobstructive left renal stones are unchanged. Reading Location: [id number] Charges/Coding Urology Urology: [place] Covarrubias
[2025-09-28 21:05] VITALS: BP 120/56; PULSE 63; RESP 18; TEMP 35.9; O2SAT 97
[2025-09-29 04:01] VITALS: BP 109/62; PULSE 69; RESP 18; TEMP 36; O2SAT 97
--- NOTE | 2025-09-29 08:22 | PCM.PN.HOSP ---
Reason for Visit Chief Complaint: Confusion Subjective Subjective Patient seen did complain of nausea this morning. Cultures obtained on admission still pending. Objective Data Objective Data Vital Signs: Vital Signs Temp Pulse Resp BP Pulse Ox O2 Del Method 96.8 F L 69 18 109/62 97 Room Air 09/29/25 04:01 09/29/25 04:01 09/29/25 04:01 09/29/25 04:01 09/29/25 04:01 09/29/25 04:01 Oxygen Delivery Method Room Air Weight: 126.6 kg Body Mass Index (BMI) 43.7 Intake & Output: Intake and Output for Last 24 Hours 09/27/25 09/28/25 09/29/25 23:59 23:59 23:59 Intake Total 4190.0 / 4190.0 Balance 4190.0 / 4190.0 Lab / Micro Data 09/28/25 02:14 09/27/25 21:26 Labs: Laboratory Results - last 24 hr 09/28/25 11:29: POC Glucose 191 H 09/28/25 16:15: POC Glucose 156 H 09/28/25 21:09: POC Glucose 175 H 09/29/25 06:05: POC Glucose 150 H Physical Exam Narrative GENERAL: cooperative HEENT: Atraumatic; normocephalic EYES; Anicteric, Normal Conjunctiva NECK; supple, normal thyroid, RESPIRATORY: Diminished to auscultation CARDIOVASCULAR: Regular S1 S2, GI: soft, normoactive bowel sounds, : No Renal angle tenderness; EXTREMITIES: No edema, no clubbing, MUSCULOSKELETAL: no muscle wasting NEURO: Awake; no lateralizing signs. SKIN: No Rash PSYCH; Flat affect Assessment & Plan Assessment/Plan (1) Complicated urinary tract infection: (2) Encephalopathy acute: (3) Hyperglycemia due to diabetes mellitus: (4) Acidosis, lactic: (5) Obesity: QUALIFIERS: Body mass index: BMI 40.0-44.9 Obesity classification: adult class 3 (BMI >= 40) Obesity type: due to excess calories Serious obesity comorbidity presence: with serious comorbidity Qualified Code(s): E66.01 - Morbid (severe) obesity due to excess calories; Z68.41 - Body mass index [BMI]40.0-44.9, adult (6) LETITIA (obstructive sleep apnea): PLAN: Plan 45-year-old female comes in with short episode of confusion, hyperglycemia, UTI, and lactic acidosis after recent urologic intervention with placement of left ureteral stent and stone removal. 1. Acute metabolic encephalopathy ? secondary to UTI as well as acute kidney injury admitted to a monitored unit for further management ? 09/29/2025; patient level of sensorium back to baseline 2. Sepsis secondary to acute complicated UTI (sepsis present on admission ? Patient met sepsis criteria with the presence of heart rate of 101, leukocytosis of12.2 and evidence of endorgan dysfunction by way of lactic acidosis. Patient did respond to treatment with broad-spectrum antibiotic therapy and IV fluid resuscitation ? 09/29/2025; cultures obtained on admission both urine and blood still pending patient however appears to be improving clinically 3. Acute complicated UTI ? Following recent urology care revision with placement of left ureteral stent and stone removal. Patient started on cefepime urine and blood cultures sent 4. Diabetes mellitus type 2 presenting with hyperglycemia ? Discontinue patient long-acting insulin in addition to Accu-Cheks ACHS with sliding scale coverage patient is on Ozempic as outpatient plan is to resume following discharge. Patient blood glucose levels still remain elevated adjusted long-acting insulin 5. Anemia ? Secondary to chronic disorder monitoring H&H and transfuse if patient becomes symptomatic or hemoglobin falls below 7 6. Class II obesity with BMI of 44. - complicating care weight loss advised 7. Essential hypertension ? Patient presented with relative hypotension she is on lisinopril at home held on admission monitoring with plans to resume once blood pressure stabilizes ? 09/29/2025; patient hypotension is resolved plan is to resume antihypertensives 8. GERD ? On PPI 9. Chronic migraines ? Patient is on topiramate at night 10. Obstructive sleep apnea ? Consistent use of PAP therapy encouraged 11. Left shoulder impingement syndrome anxiety is ? Patient underwent Left shoulder arthroscopy, subacromial decompression, debridement on 06/23/2025. Left shoulder immobilized 12. DVT prophylaxis Enoxaparin 40 mg SC twice daily Time spent in the patient's overall evaluation,decision-making process, review of diagnostic data, adjustment of management, discussion with other providers, nursing nursing and ancillary staff involved in patient's care documentation,40 Minutes Charges/Coding Visit Charges Inpatient E&M: 64531 Subs Hosp L2
[2025-09-29 08:39] VITALS: BP 134/82; PULSE 70; RESP 16; TEMP 36.4; O2SAT 98
[2025-09-29] MEDS: Cefepime HCl 2 GM in 0.9% Normal Saline (100mL MB+) 100 ML IV ×2 (08:48→21:51)
[2025-09-29] MEDS: Insulin Glargine-YFGN 100 UNIT/ML Pen 15 UNIT SC ×2 (08:50→21:43)
[2025-09-29 11:48] LABS: Hematocrit 36.3 % (37-47); Hemoglobin 12.3 g/dL (12.0-15.0); Mean Corp Hgb Conc 33.9 g/dL (32-36); Mean Corpuscular Volume 91.4 fL (81-99); Mean Platelet Vol. 8.6 fl (6.2-12.0); Platelet Count 192 K/mm3 (150-450); RBC Distribution Width CV 13.7 % (11.6-14.6); RBC Distribution Width SD 45.7 fl (35.1-43.9); Red Blood Count 3.97 M/mm3 (4.2-5.4); White Blood Count 9.5 K/mm3 (4.4-11.0)
[2025-09-29 12:19] LABS: AST(SGOT) 41 U/L (<=31); Alanine Aminotransfer ALT/SGPT 41 U/L (<=34); Albumin, Serum 3.8 g/dL (3.5-5.0); Alkaline Phosphatase 79 U/L (35-104); Anion Gap 13 (5-15); BUN 15 mg/dL (4-19); BUN/Creat Ratio 11.9 RATIO (10-20); Calcium,Total 8.9 mg/dL (7.6-11.0); Carbon Dioxide 20.6 mmol/L (21.0-32.0); Chloride 103 mmol/L (98-108); Estimated Creatinine Clearance 80.90 ml/min (50-250); Globulin 3.4 g/dL (2.2-4.2); Glucose 153 mg/dL (70-99); Magnesium 1.8 mg/dL (1.5-2.2); Potassium 4.1 mmol/L (3.3-5.1)
[2025-09-29 15:36] VITALS: BP 108/46; PULSE 69; O2SAT 99
[2025-09-29 21:36] VITALS: BP 120/75; PULSE 66; RESP 18; TEMP 35.9; O2SAT 96
[2025-09-29] MEDS: 0.9% Saline Lock 10 ML Syringe IV (21:44)
[2025-09-30 05:29] VITALS: BP 120/76; PULSE 66; RESP 18; TEMP 35.6; O2SAT 97
[2025-09-30 05:32] LABS: Hematocrit 36.5 % (37-47); Hemoglobin 12.1 g/dL (12.0-15.0); Immature Granulocytes Count 0.340 X10^3/uL (0.0-0.0); Mean Corp Hgb Conc 33.2 g/dL (32-36); Mean Corpuscular Volume 92.4 fL (81-99); Mean Platelet Vol. 9.1 fl (6.2-12.0); NRBC Flagged by Analyzer 0 % (0-5); Platelet Count 206 K/mm3 (150-450); RBC Distribution Width CV 13.8 % (11.6-14.6); RBC Distribution Width SD 46.4 fl (35.1-43.9); Red Blood Count 3.95 M/mm3 (4.2-5.4); White Blood Count 10.6 K/mm3 (4.4-11.0)
[2025-09-30 05:50] LABS: Anion Gap 13 (5-15); BUN 14 mg/dL (4-19); BUN/Creat Ratio 17.1 RATIO (10-20); Calcium,Total 9.1 mg/dL (7.6-11.0); Carbon Dioxide 21.9 mmol/L (21.0-32.0); Chloride 102 mmol/L (98-108); Estimated Creatinine Clearance 119.42 ml/min (50-250); Glucose 139 mg/dL (70-99); Potassium 4.0 mmol/L (3.3-5.1)
--- NOTE | 2025-09-30 07:53 | PN.HOSP_ITS ---
Reason for Visit Chief Complaint: Confusion Subjective Subjective Patient seen and symptoms improved. Urine cultures so far positive forGram negative becki [place] Count >100,000 CFU/mL ;Identification and sensitivity to follow. Objective Data Objective Data Vital Signs: Vital Signs Temp Pulse Resp BP Pulse Ox O2 Del Method 96.0 F L 66 18 120/76 97 Room Air 09/30/25 05:29 09/30/25 05:29 09/30/25 05:29 09/30/25 05:29 09/30/25 05:29 09/30/25 05:39 Oxygen Delivery Method Room Air Weight: 126.6 kg Body Mass Index (BMI) 43.7 Intake & Output: Intake and Output for Last 24 Hours 09/28/25 09/29/25 09/30/25 23:59 23:59 23:59 Intake Total 4190.0 / 4190.0 1640 / 1640 Balance 4190.0 / 4190.0 1640 / 1640 Lab / Micro Data 09/30/25 04:46 09/30/25 04:46 Labs: Laboratory Results - last 24 hr 09/29/25 11:35: WBC 9.5, RBC 3.97 L, Hgb 12.3, Hct 36.3 L, MCV 91.4, MCH 31.0, MCHC 33.9, RDW Std Deviation 45.7 H, RDW Coeff of Itzel 13.7, Plt Count 192, MPV 8.6, Sodium 137, Potassium 4.1, Chloride 103, Carbon Dioxide 20.6 L, Anion Gap 13, BUN 15, Creatinine 1.24 H, Estim Creat Clear Calc 80.90, Est GFR (MDRD) Non- Af 55 L, BUN/Creatinine Ratio 11.9, Glucose 153 H, Calcium 8.9, Phosphorus 3.3, Magnesium 1.8, Total Bilirubin 0.48, AST 41 H, ALT 41 H, Alkaline Phosphatase 79, Total Protein 7.2, Albumin 3.8, Globulin 3.4, Albumin/Globulin Ratio 1.1 09/29/25 11:52: POC Glucose 138 H 09/29/25 15:39: POC Glucose 122 H 09/29/25 21:35: POC Glucose 162 H 09/30/25 04:46: WBC 10.6, RBC 3.95 L, Hgb 12.1, Hct 36.5 L, MCV 92.4, MCH 30.6, MCHC 33.2, RDW Std Deviation 46.4 H, RDW Coeff of Itzel 13.8, Plt Count 206, MPV 9.1, Immature Gran % (Auto) 3.200 H, Neut % (Auto) 60.8, Lymph % (Auto) 28.5, [place] % (Auto) 4.5, Eos % (Auto) 2.2, Baso % (Auto) 0.8, Absolute Neuts (auto) 6.5, Absolute Lymphs (auto) 3.03, Nucleated RBC % 0, Sodium 137, Potassium 4.0, Chloride 102, Carbon Dioxide 21.9, Anion Gap 13, BUN 14, Creatinine 0.84, Estim Creat Clear Calc 119.42, Est GFR (MDRD) Non-Af 89, BUN/Creatinine Ratio 17.1, G lucose 139 H, Calcium 9.1 09/30/25 06:55: POC Glucose 129 H Micro: Microbiology 09/27/25 22:55 Blood Culture (Wb) - Anticubital Right Blood Culture - Preliminary No growth in 48 hours. 09/27/25 22:50 Blood Culture (Wb) - Left Hand Blood Culture - Preliminary No growth in 48 hours. Physical Exam Narrative GENERAL: cooperative HEENT: Atraumatic; normocephalic EYES; Anicteric, Normal Conjunctiva NECK; supple, normal thyroid, RESPIRATORY: Diminished to auscultation CARDIOVASCULAR: Regular S1 S2, GI: soft, normoactive bowel sounds, : No Renal angle tenderness; EXTREMITIES: No edema, no clubbing, MUSCULOSKELETAL: no muscle wasting NEURO: Awake; no lateralizing signs. SKIN: No Rash PSYCH; Flat affect Assessment & Plan Assessment/Plan (1) Complicated urinary tract infection: (2) Encephalopathy acute: (3) Hyperglycemia due to diabetes mellitus: (4) Acidosis, lactic: (5) Obesity: QUALIFIERS: Body mass index: BMI 40.0-44.9 Obesity classification: adult class 3 (BMI >= 40) Obesity type: due to excess calories Serious obesity comorbidity presence: with serious comorbidity Qualified Code(s): E66.01 - Morbid (severe) obesity due to excess calories; Z68.41 - Body mass index [BMI]40.0-44.9, adult (6) LETITIA (obstructive sleep apnea): PLAN: Plan 45-year-old female comes in with short episode of confusion, hyperglycemia, UTI, and lactic acidosis after recent urologic intervention with placement of left ureteral stent and stone removal. 1. Acute metabolic encephalopathy ? secondary to UTI as well as acute kidney injury admitted to a monitored unit for further management ? 09/29/2025; patient level of sensorium back to baseline 2. Sepsis secondary to acute complicated UTI (sepsis present on admission ? Patient met sepsis criteria with the presence of heart rate of 101, leukocytosis of12.2 and evidence of endorgan dysfunction by way of lactic acidosis. Patient did respond to treatment with broad-spectrum antibiotic therapy and IV fluid resuscitation ? 09/29/2025; cultures obtained on admission both urine and blood still pending patient however appears to be improving clinically ? 09/30/2025;Patient seen and symptoms improved. Urine cultures so far positive forGram negative becki [place] Count >100,000 CFU/mL ;Identification and sensitivity to follow.. Blood cultures so far negative to date. Patient urine cultures from 08/11/2025 was positive for E. coli based on that patient was discharged on ciprofloxacin for 10 days with plans to follow-up on current culture results 3. Acute complicated UTI ? Following recent urology care revision with placement of left ureteral stent and stone removal. Patient started on cefepime urine and blood cultures sent 4. Diabetes mellitus type 2 presenting with hyperglycemia ? Discontinue patient long-acting insulin in addition to Accu-Cheks ACHS with sliding scale coverage patient is on Ozempic as outpatient plan is to resume following discharge. Patient blood glucose levels still remain elevated adjusted long-acting insulin 5. Anemia ? Secondary to chronic disorder monitoring H&H and transfuse if patient becomes symptomatic or hemoglobin falls below 7 6. Class II obesity with BMI of 44. - complicating care weight loss advised 7. Essential hypertension ? Patient presented with relative hypotension she is on lisinopril at home held on admission monitoring with plans to resume once blood pressure stabilizes ? 09/29/2025; patient hypotension is resolved plan is to resume antihypertensives 8. GERD ? On PPI 9. Chronic migraines ? Patient is on topiramate at night 10. Obstructive sleep apnea ? Consistent use of PAP therapy encouraged 11. Left shoulder impingement syndrome anxiety is ? Patient underwent Left shoulder arthroscopy, subacromial decompression, debridement on 06/23/2025. Left shoulder immobilized 12. DVT prophylaxis Enoxaparin 40 mg SC twice daily Time spent in the patient's overall evaluation,decision-making process, review of diagnostic data, adjustment of management, discussion with other providers, nursing nursing and ancillary staff involved in patient's care documentation, 36 Minutes Charges/Coding Visit Charges Inpatient E&M: 36866 Subs Hosp L2
--- NOTE | 2025-09-30 08:40 | DS.PCM_ITS ---
Providers Date of Admission: 09/27/25 Date of Discharge: 09/30/25 Primary Care Physician: Dr. Zeferino Leon MD Consultations 09/28/25 01:12 Consult: Urology Routine Consulting Provider: Saundra Christensen Reason for Consult: UTI, recent ureteral stent EMERGENT Consult: No MD Notified: Yes Date Notified: 09/28/25 Time Notified: 01:12 Method of Notification: ED Physician Initiated Reason For Visit: 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 Diagnosis Discharge Diagnosis (1) Complicated urinary tract infection: Status: Acute Code(s): N39.0 - Urinary tract infection, site not specified (2) Encephalopathy acute: Status: Acute Code(s): G93.40 - Encephalopathy, unspecified (3) Hyperglycemia due to diabetes mellitus: Status: Acute Code(s): E11.65 - Type 2 diabetes mellitus with hyperglycemia (4) Acidosis, lactic: Status: Acute Code(s): E87.20 - Acidosis, unspecified (5) Obesity: Status: Chronic Code(s): E66.9 - Obesity, unspecified Qualifiers: Body mass index: BMI 40.0-44.9 Obesity classification: adult class 3 (BMI >= 40) Obesity type: due to excess calories Serious obesity comorbidity presence: with serious comorbidity Qualified Code(s): E66.01 - Morbid (severe) obesity due to excess calories; Z68.41 - Body mass index [BMI]40.0-44.9, adult (6) LETITIA (obstructive sleep apnea): Status: Chronic Code(s): G47.33 - Obstructive sleep apnea (adult) (pediatric) Plan 45-year-old female comes in with short episode of confusion, hyperglycemia, UTI, and lactic acidosis after recent urologic intervention with placement of left ureteral stent and stone removal. 1. Acute metabolic encephalopathy ? secondary to UTI as well as acute kidney injury admitted to a monitored unit for further management ? 09/29/2025; patient level of sensorium back to baseline 2. Sepsis secondary to acute complicated UTI (sepsis present on admission ? Patient met sepsis criteria with the presence of heart rate of 101, leukocytosis of12.2 and evidence of endorgan dysfunction by way of lactic acidosis. Patient did respond to treatment with broad-spectrum antibiotic therapy and IV fluid resuscitation ? 09/29/2025; cultures obtained on admission both urine and blood still pending patient however appears to be improving clinically ? 09/30/2025;Patient seen and symptoms improved. Urine cultures so far positive forGram negative becki [place] Count >100,000 CFU/mL ;Identification and sensitivity to follow.. Blood cultures so far negative to date. Patient urine cultures from 08/11/2025 was positive for E. coli based on that patient was discharged on ciprofloxacin for 10 days with plans to follow-up on current culture results 3. Acute complicated UTI ? Following recent urology care revision with placement of left ureteral stent and stone removal. Patient started on cefepime urine and blood cultures sent 4. Diabetes mellitus type 2 presenting with hyperglycemia ? Discontinue patient long-acting insulin in addition to Accu-Cheks ACHS with sliding scale coverage patient is on Ozempic as outpatient plan is to resume following discharge. Patient blood glucose levels still remain elevated adjusted long-acting insulin 5. Anemia ? Secondary to chronic disorder monitoring H&H and transfuse if patient becomes symptomatic or hemoglobin falls below 7 6. Class II obesity with BMI of 44. - complicating care weight loss advised 7. Essential hypertension ? Patient presented with relative hypotension she is on lisinopril at home held on admission monitoring with plans to resume once blood pressure stabilizes ? 09/29/2025; patient hypotension is resolved plan is to resume antihypertensives 8. GERD ? On PPI 9. Chronic migraines ? Patient is on topiramate at night 10. Obstructive sleep apnea ? Consistent use of PAP therapy encouraged 11. Left shoulder impingement syndrome anxiety is ? Patient underwent Left shoulder arthroscopy, subacromial decompression, debridement on 06/23/2025. Left shoulder immobilized 12. DVT prophylaxis Enoxaparin 40 mg SC twice daily Time spent in the patient's overall evaluation,decision-making process, review of diagnostic data, adjustment of management, discussion with other providers, nursing nursing and ancillary staff involved in patient's care documentation, 36 Minutes Medications at Discharge Home Medications blood sugar diagnostic (Blood Glucose Test strips) #10 ea 04/26/20 ipratropium bromide 21 mcg (0.03 %) nasal spray 2 spray intranasal BID PRN allergies 08/23/20 albuterol sulfate 90 mcg/actuation aerosol inhaler 2 puff inhalation Q4H PRN shortness of breath or wheezing 08/10/22 fexofenadine 180 mg tablet (Allergy Relief (fexofenadine)) 180 mg PO DAILY allergies 08/10/22 levonorgestrel 17.5 mcg/24 hr (up to 5 yrs) 19.5mg intrauterine device 1 device intrauterine ONCE control 08/10/22 tizanidine 4 mg tablet 4 mg PO Q8H PRN Muscle Spasm 08/10/22 omeprazole 20 mg capsule,delayed release 20 mg PO DAILY PRN gerd 08/16/22 fluoxetine 20 mg capsule 20 mg PO QHS mental health 12/28/22 gabapentin 300 mg capsule 300 mg PO QHS nerve pain 12/28/22 lisinopril 10 mg tablet 10 mg PO DAILY blood pressure 12/28/22 rimegepant 75 mg disintegrating tablet (Nurtec ODT) 75 mg PO DAILY PRN migraine headache 02/04/24 semaglutide 2 mg/dose (8 mg/3 mL) subcutaneous pen injector (Ozempic) 2 mg subcut TU 07/05/25 BIPAP -Bilevel Positive Airway Pressure ([facility] INFORMATIONAL USE ONLY) 07/06/25 insulin glargine 100 unit/mL (3 mL) subcutaneous pen (Lantus Solostar U-100 Insulin) 10 unit (0.1 mL) subcut QPM #15 mL 07/07/25 pen needle, diabetic 31 gauge x 5/32 #100 ea 07/07/25 topiramate 50 mg tablet 150 mg PO QHS 08/05/25 ondansetron 4 mg disintegrating tablet 4 mg PO Q8H PRN nausea and vomiting #10 tabs 09/16/25 oxycodone-acetaminophen 5 mg-325 mg tablet 1 tab PO Q8H PRN pain 3 days #10 tabs 09/16/25 phenazopyridine 200 mg tablet 200 mg PO TID PRN pain #30 tabs 09/16/25 L.acidophil,salivari-Bifido bifidum-Strep thermoph 175 mg capsule 1 cap PO BID #60 caps 09/30/25 ciprofloxacin HCl 500 mg tablet 500 mg PO BID #20 tabs 09/30/25 Physical Exam Narrative GENERAL: cooperative HEENT: Atraumatic; normocephalic EYES; Anicteric, Normal Conjunctiva NECK; supple, normal thyroid, RESPIRATORY: Diminished to auscultation CARDIOVASCULAR: Regular S1 S2, GI: soft, normoactive bowel sounds, : No Renal angle tenderness; EXTREMITIES: No edema, no clubbing, MUSCULOSKELETAL: no muscle wasting NEURO: Awake; no lateralizing signs. SKIN: No Rash PSYCH; Flat affect Weight / BMI Weight Weight: 126.6 kg Body Mass Index (BMI) 43.7 ABG / Lab / Microbiology Data 09/30/25 04:46 09/30/25 04:46 Laboratory: Laboratory Results - last 24 hr 09/29/25 11:35: WBC 9.5, RBC 3.97 L, Hgb 12.3, Hct 36.3 L, MCV 91.4, MCH 31.0, MCHC 33.9, RDW Std Deviation 45.7 H, RDW Coeff of Itzel 13.7, Plt Count 192, MPV 8.6, Sodium 137, Potassium 4.1, Chloride 103, Carbon Dioxide 20.6 L, Anion Gap 13, BUN 15, Creatinine 1.24 H, Estim Creat Clear Calc 80.90, Est GFR (MDRD) Non- Af 55 L, BUN/Creatinine Ratio 11.9, Glucose 153 H, Calcium 8.9, Phosphorus 3.3, Magnesium 1.8, Total Bilirubin 0.48, AST 41 H, ALT 41 H, Alkaline Phosphatase 79, Total Protein 7.2, Albumin 3.8, Globulin 3.4, Albumin/Globulin Ratio 1.1 09/29/25 11:52: POC Glucose 138 H 09/29/25 15:39: POC Glucose 122 H 09/29/25 21:35: POC Glucose 162 H 09/30/25 04:46: WBC 10.6, RBC 3.95 L, Hgb 12.1, Hct 36.5 L, MCV 92.4, MCH 30.6, MCHC 33.2, RDW Std Deviation 46.4 H, RDW Coeff of Itzel 13.8, Plt Count 206, MPV 9.1, Immature Gran % (Auto) 3.200 H, Neut % (Auto) 60.8, Lymph % (Auto) 28.5, Bennett % (Auto) 4.5, Eos % (Auto) 2.2, Baso % (Auto) 0.8, Absolute Neuts (auto) 6.5, Absolute Lymphs (auto) 3.03, Nucleated RBC % 0, Sodium 137, Potassium 4.0, Chloride 102, Carbon Dioxide 21.9, Anion Gap 13, BUN 14, Creatinine 0.84, Estim Creat Clear Calc 119.42, Est GFR (MDRD) Non-Af 89, BUN/Creatinine Ratio 17.1, G lucose 139 H, Calcium 9.1 09/30/25 06:55: POC Glucose 129 H Microbiology: Microbiology 09/27/25 21:24 Urine, Clean Catch Urine Culture - Preliminary Gram negative becki 09/27/25 22:55 Blood Culture (Wb) - Anticubital Right Blood Culture - Preliminary No growth in 48 hours. 09/27/25 22:50 Blood Culture (Wb) - Left Hand Blood Culture - Preliminary No growth in 48 hours. D/C Instructions Discharge Activity: Return to Normal Activity Call your doctor if you observe: Fever of 101 or Higher, Shortness of breath, Fainting spells and Chest pain DC O2, CPAP, BIPAP Needs Home O2 Discharge instructions: No Meaningful Use Info Meaningful Use Meaningful Use Diagnoses (Choose all that apply): None applicable Discharge Plan Admission Admit Date/Time: 09/27/25 23:57 Attending Provider: Zafar Harrison Primary Care Provider: Zeferino Leon Consulting Providers: Saundra Christensen; Diomedes Metcalf Discharge Orders/Prescriptions Prescriptions: New LStephanyacidoph,saliva-B.bif-S.therm 175 mg Capsule 1 cap PO BID Qty: 60 0RF ciprofloxacin HCl 500 mg tablet 500 mg PO BID Qty: 20 0RF Continued (DME) blood sugar diagnostic [Blood Glucose Test] Strip See Rx Instructions .ROUTE .MEDSUPPLY Qty: 10 Rx Instructions: As directed ipratropium bromide 0.03 % spray,non-aerosol 2 spray INTRANASAL BID PRN (Reason: allergies) Rx Instructions: administer into each nostril fexofenadine [Allergy Relief (fexofenadine)] 180 mg tablet 180 mg PO DAILY levonorgestrel 17.5 mcg/24 hrs (5 yrs) 19.5 mg intrauterine device 1 device intrauterine ONCE Rx Instructions: as a single dose omeprazole 20 mg capsule,delayed release(DR/EC) 20 mg PO DAILY PRN (Reason: gerd) Patient Comments: Take 1 capsule by mouthndaily before breakfast. 1/2 hr before meal. gabapentin 300 mg capsule 300 mg PO QHS lisinopril 10 mg tablet 10 mg PO DAILY Patient Comments: Take 1 tablet by mouthEonce daily. fluoxetine 20 mg capsule 20 mg PO QHS Patient Comments: Take 1 capsule by mouthConce daily. topiramate 50 mg tablet 150 mg PO QHS Rx Instructions: 3 50mg tablets at bedtime albuterol sulfate 90 mcg/actuation HFA aerosol inhaler 2 puff INHALATION Q4H PRN (Reason: shortness of breath or wheezing) tizanidine 4 mg tablet 4 mg PO Q8H PRN (Reason: Muscle Spasm) Ozempic 2 mg/dose (8 mg/3 mL) pen injector 2 mg subcut TU (DME) BIPAP -Bilevel Positive Airway Pressure ([facility] INFORMATIONAL USE ONLY) Device See Rx Instructions .Route Patient Comments: VAuto: IPAP=19.2 EPAP=12.4 PS=6.8 Rx Instructions: As directed insulin glargine [Lantus Solostar U-100 Insulin] 100 unit/mL (3 mL) insulin pen 10 unit subcut QPM Qty: 15 0RF (DME) pen needle, diabetic 31 gauge x 5/32 needle See Rx Instructions .ROUTE .MEDSUPPLY Qty: 100 0RF Rx Instructions: As directed phenazopyridine 200 mg tablet 200 mg PO TID PRN (Reason: pain) Qty: 30 3RF oxycodone-acetaminophen 5-325 mg tablet 1 tab PO Q8H PRN (Reason: pain) 3 Days Qty: 10 0RF ondansetron 4 mg tablet,disintegrating 4 mg PO Q8H PRN (Reason: nausea and vomiting) Qty: 10 0RF Nurtec ODT 75 mg tablet,disintegrating 75 mg PO DAILY PRN (Reason: migraine headache) Referrals / Follow Up: Zeferino Leon MD [Primary Care Provider, Medical] - Within 1 Week Disposition Disposition (needs filled in before D/C Order can be placed): Home, Self Care Charges/Coding Visit Charges Inpatient E&M: 23633 Disch Hosp >30min
[2025-09-30] MEDS: 0.9% Saline Lock 10 ML Syringe IV (09:41)
[2025-09-30] MEDS: Cefepime HCl 2 GM in 0.9% Normal Saline (100mL MB+) 100 ML IV (09:41)
[2025-09-30 09:45] VITALS: BP 139/72; PULSE 65; RESP 16; TEMP 36.6; O2SAT 100
== END 2025-09-30 10:45 | disposition home or self-care (01) | DRG 871 ==
LOC: ED 21:36 → PCU 09-28 00:08
PROVIDERS: Admitting Provider Internal Medicine; Emergency Provider Emergency Medicine; PCP Family Medicine; Visit Provider Internal Medicine
DX: A41.9 Sepsis, unspecified organism (principal); G93.41 Metabolic encephalopathy; E87.20 Acidosis, unspecified; Z68.41 Body mass index [BMI] 40.0-44.9, adult; N17.9 Acute kidney failure, unspecified; N39.0 Urinary tract infection, site not specified; E11.65 Type 2 diabetes mellitus with hyperglycemia; I10 Essential (primary) hypertension; Z79.4 Long term (current) use of insulin; E66.01 Morbid (severe) obesity due to excess calories; K21.9 Gastro-esophageal reflux disease without esophagitis; G47.33 Obstructive sleep apnea (adult) (pediatric); G43.709 Chronic migraine without aura, not intractable, without status migrainosus; M75.42 Impingement syndrome of left shoulder; Z83.3 Family history of diabetes mellitus; Z82.49 Family history of ischemic heart disease and other diseases of the circulatory system; E66.812 Obesity, class 2; Z90.49 Acquired absence of other specified parts of digestive tract; Z99.89 Dependence on other enabling machines and devices; Z87.442 Personal history of urinary calculi
CPT/HCPCS: 36415; 74176; 80048; 80053; 81001; 82962; 83605; 83735; 84100; 85025; 85027; 87040; 87077; 87086; 87088; 87186; 99285; A4216; J2405

== ENCOUNTER → 2025-10-25 | Outpatient (CLI) | payer OTHER, SELFPAY ==
[2025-10-25 10:13] LABS: Hematocrit 39.9 % (37-47); Hemoglobin 13.2 g/dL (12.0-15.0); Immature Granulocytes Count 0.100 X10^3/uL (0.0-0.0); Mean Corp Hgb Conc 33.1 g/dL (32-36); Mean Corpuscular Volume 91.5 fL (81-99); Mean Platelet Vol. 9.3 fl (6.2-12.0); NRBC Flagged by Analyzer 0 % (0-5); Platelet Count 196 K/mm3 (150-450); RBC Distribution Width CV 14.1 % (11.6-14.6); RBC Distribution Width SD 47.4 fl (35.1-43.9); Red Blood Count 4.36 M/mm3 (4.2-5.4); White Blood Count 8.8 K/mm3 (4.4-11.0)
[2025-10-25 10:40] LABS: Anion Gap 13 (5-15); BUN 10 mg/dL (4-19); BUN/Creat Ratio 11.0 RATIO (10-20); Calcium,Total 8.9 mg/dL (7.6-11.0); Carbon Dioxide 20.1 mmol/L (21.0-32.0); Chloride 104 mmol/L (98-108); Glucose 133 mg/dL (70-99); Potassium 4.1 mmol/L (3.3-5.1)
== END | disposition home or self-care (01) ==
LOC: LAB 09:27
PROVIDERS: PCP Family Medicine; Referring Provider Family Medicine; Visit Provider Family Medicine
DX: N39.0 Urinary tract infection, site not specified (principal); A41.9 Sepsis, unspecified organism
CPT/HCPCS: 36415; 80048; 85025; 87086; 87088